=== PATIENT | female | born 1960 | race Caucasian/White ===

== ENCOUNTER 2017-07-11 15:56 | Observation (INO) | payer MEDICAID, SELFPAY ==
[2017-07-11] VITALS (9 sets, daily range): BP systolic 125–156; BP diastolic 74–92; PULSE 57–89; RESP 18–22; TEMP 36.7–37.4; O2SAT 92–96; BMI 82.8; BMI 37.5
--- NOTE | 2017-07-11 16:13 | XR_ITS ---
XR chest 2V COMPARISON: None HISTORY: Shortness of breath TECHNIQUE: PA and lateral chest FINDINGS: Lung english are well expanded and appear clear of infiltrate. The cardiac silhouette and vascularity are normal and is no pleural fluid. There are mild multilevel degenerative changes of the thoracic spine. IMPRESSION: Nonacute chest findings
[2017-07-11 16:22] LABS: Adenovirus,PCR Not Detected (NotDetected); Bordetella Pertussis Not Detected (NotDetected); Chlamydophila Pneumoniae, PCR Not Detected (NotDetected); Coronavirus 229E Not Detected (NotDetected); Coronavirus NL63 Not Detected (NotDetected); Coronavirus OC43 Not Detected (NotDetected); Coronovirus HKU1,PCR Not Detected (NotDetected); Human Metapneumovirus Not Detected (NotDetected); Influenza A, PCR Not Detected (NotDetected); Influenza AH1, 2009 Not Detected (NotDetected); Influenza AH1, PCR Not Detected (NotDetected); Influenza AH3,PCR Not Detected (NotDetected); Influenza B, PCR Not Detected (NotDetected); Mycoplasma Pneumoniae, PCR Not Detected (NotDected); Parainfluenza 1, PCR Not Detected (NotDetected); Parainfluenza 2, PCR Not Detected (NotDetected); Parainfluenza 3, PCR Not Detected (NotDetected); Parainfluenza 4, PCR Not Detected (NotDetected); Respiratory Syncytial Virus Not Detected (NotDetected)
--- NOTE | 2017-07-11 16:23 | HMH.EDSOB ---
ED Disposition Clinical Impression: Community acquired pneumonia Qualifiers: Laterality: right Lung location: middle lobe of lung Qualified Code(s): J18.1 - Lobar pneumonia, unspecified organism Disposition: Admitted as Observation Condition on Discharge: [facility] - Critical Care Critical Care Time: No Attestation: On , the high probability of a clinically significant, sudden or life threatening deterioration of the following system(s) required my full and direct attention, intervention and personal management. The time I documented below is in addition to time spent performing reported procedures but includes the following listed in this critical care notation. Medical Decision Making Vital Signs: 07/11/17 16:12 07/11/17 16:23 Temperature 99.4 F Temperature Source Oral Pulse Rate 88 Pulse Rate [Right Brachial] 57 L Respiratory Rate 18 Blood Pressure [Right Arm] 156/90 Blood Pressure Mean [Right Arm] 112 Blood Pressure Source [Right Arm] Automatic Cuff Blood Pressure Position [Right Arm] Sitting 02 Sat by Pulse Oximetry 92 L Oxygen Delivery Method Room Air - Lab Data Lab results reviewed: Yes: I reviewed the patient's lab results. Lab Results 07/11/17 16:15: Chlamy pneumoniae PCR Not detected, Adenovirus (PCR) Not detected, B.parapertussis DNA PCR Not detected, Coronavirus OC43 (PCR) Not detected, Coronavirus HKU1 (PCR) Not detected, Coronavirus 229E (PCR) Not detected, Coronavirus NL63 (PCR) Not detected, Human Metapneumovir PCR Not detected, Influenza A (H1) PCR Not detected, Influ A (H1N1/09) PCR Not detected, Influenza A (H3) PCR Not detected, Influenza Type A (PCR) Not detected, Influenza Type B (PCR) Not detected, M. pneumoniae (PCR) Not detected, Parainfluenza 1 (PCR) Not detected, Parainfluenza 2 (PCR) Not detected, Parainfluenza 3 (PCR) Not detected, Parainfluenza 4 (PCR) Not detected, RSV (PCR) Not detected, Entero/Rhino (PCR) Detected A 07/11/17 16:30: Sodium 143, Potassium 3.9, Chloride 104, Carbon Dioxide 27, Anion Gap 15.9 H, BUN 24 H, Creatinine 0.95, Estimated Creat Clear 114, Estimated GFR 61, Est GFR ( Amer) 74, Glucose 215 H, Calcium 9.4, Total Bilirubin 0.4, AST 17, ALT 29, Alkaline Phosphatase 103, Total Protein 7.9, Albumin 3.8, Globulin 4.1 H, Albumin/Globulin Ratio 0.9 L 07/11/17 16:30: Lactic Acid 1.8 07/11/17 17:05: WBC 14.6 H, RBC 4.85, Hgb 14.8, Hct 46.1, MCV 95.2, MCH 30.5, MCHC 32.0, RDW 12.9, Plt Count 243, MPV 8.4, Neut % (Auto) 65.1, Lymph % (Auto) 29.0, Gates % (Auto) 3.4, Eos % (Auto) 2.2, Baso % (Auto) 0.3, Neut # (Auto) 9.5 H, Lymph # (Auto) 4.2, Gates # (Auto) 0.5, Eos # (Auto) 0.3, Baso # (Auto) 0.1 Result diagrams: 07/11/17 17:05 07/11/17 16:30 Orders (Tests/Meds): ED MEDICATIONS Generic Name Dose Route Start Last Admin Trade Name Freq PRN Reason Stop Dose Admin Piperacillin Sod/Tazobactam 50 mls @ 100 mls/hr 07/11/17 17:00 07/11/17 17:21 Sod 3.375 gm/ Sodium Chloride IV 07/25/17 16:59 100 mls/hr Q8H BRIDGETTE Administration Protocol Discontinued Medications Generic Name Dose Route Start Last Admin Trade Name Freq PRN Reason Stop Dose Admin Methylprednisolone Sodium Succinate 125 mg 07/11/17 16:30 07/11/17 16:56 Solu-Medrol 125mg/2ml Vial IV 07/11/17 16:31 125 mg ONCE ONE Administration ORDERS Category Date Time Status Chest XR 2 view (NOT portable) [XR chest 2V] Stat Exams 07/11/17 16:13 Taken Blood Culture Stat Micro 07/11/17 16:30 Ordered - Radiology Data #1 Image(s): Chest Image Reviewed: Yes I reviewed the patient's radiology image Preliminary Findings: Abnormal somewhat hazy RML and LLL - Physician Consults Physician Consulted: Dr. Elam salon stylist for Dr. Ortiz who is on service call Reason -: Admission, Pt condition - Garret Inquiry Pt receiving controlled substance: No Resp/SOB HPI - General Chief Complaint: Shortness of Breath/Dyspnea Stated Complaint: soa Time Seen by Provid
--- NOTE | 2017-07-11 16:27 | ED_ITS ---
ED Disposition Clinical Impression: Community acquired pneumonia Qualifiers: Laterality: right Lung location: middle lobe of lung Qualified Code(s): J18.1 - Lobar pneumonia, unspecified organism Disposition: Admitted as Observation Condition on Discharge: [facility] - Critical Care Critical Care Time: No Attestation: On , the high probability of a clinically significant, sudden or life threatening deterioration of the following system(s) required my full and direct attention, intervention and personal management. The time I documented below is in addition to time spent performing reported procedures but includes the following listed in this critical care notation. Medical Decision Making Vital Signs: 07/11/17 16:12 07/11/17 16:23 Temperature 99.4 F Temperature Source Oral Pulse Rate 88 Pulse Rate [Right Brachial] 57 L Respiratory Rate 18 Blood Pressure [Right Arm] 156/90 Blood Pressure Mean [Right Arm] 112 Blood Pressure Source [Right Arm] Automatic Cuff Blood Pressure Position [Right Arm] Sitting 02 Sat by Pulse Oximetry 92 L Oxygen Delivery Method Room Air - Lab Data Lab results reviewed: Yes: I reviewed the patient's lab results. Lab Results 07/11/17 16:15: Chlamy pneumoniae PCR Not detected, Adenovirus (PCR) Not detected, B.parapertussis DNA PCR Not detected, Coronavirus OC43 (PCR) Not detected, Coronavirus HKU1 (PCR) Not detected, Coronavirus 229E (PCR) Not detected, Coronavirus NL63 (PCR) Not detected, Human Metapneumovir PCR Not detected, Influenza A (H1) PCR Not detected, Influ A (H1N1/09) PCR Not detected , Influenza A (H3) PCR Not detected, Influenza Type A (PCR) Not detected, Influenza Type B (PCR) Not detected, M. pneumoniae (PCR) Not detected, Parainfluenza 1 (PCR) Not detected, Parainfluenza 2 (PCR) Not detected, Parainfluenza 3 (PCR) Not detected, Parainfluenza 4 (PCR) Not detected, RSV (PCR ) Not detected, Entero/Rhino (PCR) Detected A 07/11/17 16:30: Sodium 143, Potassium 3.9, Chloride 104, Carbon Dioxide 27, Anion Gap 15.9 H, BUN 24 H, Creatinine 0.95, Estimated Creat Clear 114, Estimated GFR 61, Est GFR ( Amer) 74, Glucose 215 H, Calcium 9.4, Total Bilirubin 0.4, AST 17, ALT 29, Alkaline Phosphatase 103, Total Protein 7.9, Albumin 3.8, Globulin 4.1 H, Albumin/Globulin Ratio 0.9 L 07/11/17 16:30: Lactic Acid 1.8 07/11/17 17:05: WBC 14.6 H, RBC 4.85, Hgb 14.8, Hct 46.1, MCV 95.2, MCH 30.5, MCHC 32.0, RDW 12.9, Plt Count 243, MPV 8.4, Neut % (Auto) 65.1, Lymph % (Auto) 29.0, Kay % (Auto) 3.4, Eos % (Auto) 2.2, Baso % (Auto) 0.3, Neut # (Auto) 9.5 H, Lymph # (Auto) 4.2, Kay # (Auto) 0.5, Eos # (Auto) 0.3, Baso # (Auto) 0.1 Result diagrams: 07/11/17 17:05 07/11/17 16:30 Orders (Tests/Meds): ED MEDICATIONS Generic Name Dose Route Start Last Admin Trade Name Freq PRN Reason Stop Dose Admin Piperacillin Sod/Tazobactam 50 mls @ 100 mls/hr 07/11/17 17:00 07/11/17 17:21 Sod 3.375 gm/ Sodium Chloride IV 07/25/17 16:59 100 mls/hr Q8H BRIDGETTE Administration Protocol Discontinued Medications Generic Name Dose Route Start Last Admin Trade Name Freq PRN Reason Stop Dose Admin Methylprednisolone Sodium Succinate 125 mg 07/11/17 16:30 07/11/17 16:56 Solu-Medrol 125mg/2ml Vial IV 07/11/17 16:31 125 mg ONCE ONE Administration ORDERS Category Date Time Status Chest XR 2 view (NOT
[2017-07-11 17:00] LABS: Alanine Aminotransferase 29 U/L (12-78); Albumin Level 3.8 gm/dL (3.4-5.0); Albumin/Globulin Ratio 0.9 (1.1-1.8); Alkaline Phosphatase 103 U/L (46-116); Anion Gap 15.9 mEq/L (5-15); Aspartate Amino Transferase 17 U/L (15-37); Bilirubin,Total 0.4 mg/dL (0.2-1.0); Blood Urea Nitrogen 24 mg/dL (7-18); Calcium 9.4 mg/dL (8.5-10.1); Carbon Dioxide 27 mmol/L (21.0-32.0); Chloride 104 mmol/L (98-107); Creatinine Clearance Estimated 114 mL/min (0-300); Creatinine,Serum 0.95 mg/dL (0.55-1.02); Estimated Glomerular Filt Rate 61 ml/min (>60); GFR (African American) 74 ML/MIN (>60); Globulin 4.1 gm/dl (1.3-3.2); Glucose 215 mg/dL (74-106); Potassium 3.9 mmoL/L (3.5-5.1); Sodium 143 mmol/L (136-145); Total Protein,Serum 7.9 gm/dL (6.4-8.2)
[2017-07-11 17:04] LABS: Lactic Acid 1.8 mmol/L (0.4-2.0)
[2017-07-11 17:12] LABS: Basophils # 0.1 K/mm3 (0-0.2); Basophils % 0.3 % (0.1-2.0); Eosinophils # 0.3 K/mm3 (0.0-0.4); Eosinophils % 2.2 % (0.1-12.0); Hematocrit 46.1 % (37.0-47.0); Hemoglobin 14.8 g/dL (12.2-16.2); Lymphocytes # 4.2 K/mm3 (0.7-4.5); Mean Corpuscular Hemoglobin 30.5 pg (27.0-31.2); Mean Corpuscular Volume 95.2 fl (81-99); Mean Platelet Volume 8.4 fl (7.4-10.4); Monocytes # 0.5 K/mm3 (0.1-1.0); Monocytes % 3.4 % (1.7-9.3); Neutrophils # 9.5 K/mm3 (1.8-7.8); Neutrophils % 65.1 % (37.0-80.0); Platelet Count 243 K/mm3 (142-424); Red Blood Count 4.85 M/mm3 (4.20-5.40); Red Cell Distribution Width 12.9 % (11.5-17.5); White Blood Count 14.6 K/mm3 (4.8-10.8)
[2017-07-11 17:34] LABS: Rhinovirus/Enterovirus Detected (NotDetected)
--- NOTE | 2017-07-11 19:31 | HMH.HP ---
*Admission Date: 07/11/17 *Chief complaint: SOA/cough *History of present illness: 56-year-old white female with known COPD, treated at home with as needed inhalers, who was treated by her primary care provider with levofloxacin last week because of a COPD exacerbation and bronchitis. [place] better, but over the past couple of days has begun to feel increasingly short of air, some cough, tight wheezing, and came to the emergency department. She was found to have normal vital signs but slightly tachycardic, tight wheezing. Admitted to hospital for enhanced pulmonary toilet and expanded antibiotic therapy. [facility] History I have reviewed the patient's past medical history: Yes Medical History: Reports:: Chronic Obstructive Pulmonary Disease (COPD), Diabetes Mellitus Type 2, Hyperlipidemia, Hypertension Denies:: Cancer, Diabetes Mellitus Type 1, Home Oxygen, Internal Pacemaker, MRSA Other Medical History: Reports: Arthritis Other Surgeries: No: Pacemaker Amputation: No Fractures: No - *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 Educational Level: Completed High School Smoking Status: Current every day smoker Tobacco Type: cigarettes # Packs/Day (cigarettes): 1 Alcohol Intake: never Occupational Status: unemployed Housing: house Household Members: spouse - Psychiatric History Expresses thoughts of harming self/others: None Suicide Plan Description: No Plan *Family Hx:: Diabetes, Heart Attack, Hyperlipidemia, Hypertension Review of Systems - Review of Systems Review of systems:: unable to obtain, other, pertinent systems reviewed and negative unless documented below - *Respiratory Reports chest congestion, Reports shortness of breath with activity, Reports excessive phlegm production Meds Home Medications Medication Instructions Recorded Confirmed Type Amlodipine Besylate [Norvasc 5mg 5 mg PO DAILY 07/11/17 07/11/17 History tablet] Aspirin [Aspirin 81mg chewable 81 mg PO DAILY 07/11/17 07/11/17 History tab] Atorvastatin Calcium [Atorvastatin 40 mg PO DAILY 07/11/17 07/11/17 History 40mg Tab] Calcium Carbonate [Calcium] 600 mg PO DAILY 07/11/17 07/11/17 History Canagliflozin [Invokana] 300 mg PO DAILY 07/11/17 07/11/17 History Carvedilol [Carvedilol 6.25mg Tab] 6.25 mg PO DAILY 07/11/17 07/11/17 History Cyanocobalamin (Vitamin B-12) 1,000 mcg PO DAILY 07/11/17 07/11/17 History [B-12] Gabapentin [Gabapentin 100mg Cap] 100 mg PO BID 07/11/17 07/11/17 History Glucosa Araya 2Kcl/Chondroitin Araya 1 each PO DAILY 07/11/17 07/11/17 History [Glucosamine & Chondroitin Cap] Metformin HCl [Metformin 500mg 500 mg PO BID 07/11/17 07/11/17 History Tablet] Omeprazole [Omeprazole 20mg 20 mg PO DAILY 07/11/17 07/11/17 History Capsule] Triamterene/Hydrochlorothiazid 1 each PO DAILY 07/11/17 07/11/17 History [Dyazide 37.5-25 Capsule] buPROPion HCl [Bupropion Xl] 300 mg PO DAILY 07/11/17 07/11/17 History Allergies Allergy/AdvReac Type Severity Reaction Status Date / Time cephalexin [From KEFLEX] Allergy Unknown Verified 07/11/17 16:56 lisinopril [LISINOPRIL] Allergy Unknown Verified 07/11/17 16:56 meloxicam [MELOXICAM] Allergy Unknown Verified 07/11/17 16:56 Exam Vital signs and Labs for Last 24 Hours: Temp Pulse Resp BP Pulse Ox 98.1 F 76 22 125/76 95 07/11/17 18:51 07/11/17 18:51 07/11/17 18:51 07/11/17 18:51 07/11/17 18:33 I & O for Last 24 hours: Intake & Output 07/09/17 07/10/17 07/11/17 07/12/17 11:59 11:59 11:59 11:59 Weight 240 lb Narrative: Patient is awake, pleasant. Anterior lung english have expiratory wheezing, fairly good air movement, some rhonchi in the right base. Abdomen is soft and nontender. Heart rate regular. No extremity edema or clubbing, neurologic exam intact. Assessment and Plan (1) COPD with acute exacerbation Current visit: Yes Status: Acute Category: Medical Code(s): J44.1 - Chronic obstructive pulmonary disease with (acute) exacerbation (2
--- NOTE | 2017-07-11 19:34 | P.HP_ITS ---
*Admission Date: 07/11/17 *Chief complaint: SOA/cough *History of present illness: 56-year-old white female with known COPD, treated at home with as needed inhalers, who was treated by her primary care provider with levofloxacin last week because of a COPD exacerbation and bronchitis. [place] better, but over the past couple of days has begun to feel increasingly short of air, some cough, tight wheezing, and came to the emergency department. She was found to have normal vital signs but slightly tachycardic, tight wheezing. Admitted to hospital for enhanced pulmonary toilet and expanded antibiotic therapy. [facility] History I have reviewed the patient's past medical history: Yes Medical History: Reports:: Chronic Obstructive Pulmonary Disease (COPD), Diabetes Mellitus Type 2, Hyperlipidemia, Hypertension Denies:: Cancer, Diabetes Mellitus Type 1, Home Oxygen, Internal Pacemaker, MRSA Other Medical History: Reports: Arthritis Other Surgeries: No: Pacemaker Amputation: No Fractures: No - *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 Educational Level: Completed High School Smoking Status: Current every day smoker Tobacco Type: cigarettes # Packs/Day (cigarettes): 1 Alcohol Intake: never Occupational Status: unemployed Housing: house Household Members: spouse - Psychiatric History Expresses thoughts of harming self/others: None Suicide Plan Description: No Plan *Family Hx:: Diabetes, Heart Attack, Hyperlipidemia, Hypertension Review of Systems - Review of Systems Review of systems:: unable to obtain, other, pertinent systems reviewed and negative unless documented below - *Respiratory Reports chest congestion, Reports shortness of breath with activity, Reports excessive phlegm production Meds Home Medications Medication Instructions Recorded Confirmed Type Amlodipine Besylate [Norvasc 5mg 5 mg PO DAILY 07/11/17 07/11/17 History tablet] Aspirin [Aspirin 81mg chewable 81 mg PO DAILY 07/11/17 07/11/17 History tab] Atorvastatin Calcium [Atorvastatin 40 mg PO DAILY 07/11/17 07/11/17 History 40mg Tab] Calcium Carbonate [Calcium] 600 mg PO DAILY 07/11/17 07/11/17 History Canagliflozin [Invokana] 300 mg PO DAILY 07/11/17 07/11/17 History Carvedilol [Carvedilol 6.25mg Tab] 6.25 mg PO DAILY 07/11/17 07/11/17 History Cyanocobalamin (Vitamin B-12) 1,000 mcg PO DAILY 07/11/17 07/11/17 History [B-12] Gabapentin [Gabapentin 100mg Cap] 100 mg PO BID 07/11/17 07/11/17 History Glucosa Araya 2Kcl/Chondroitin Araya 1 each PO DAILY 07/11/17 07/11/17 History [Glucosamine & Chondroitin Cap] Metformin HCl [Metformin 500mg 500 mg PO BID 07/11/17 07/11/17 History Tablet] Omeprazole [Omeprazole 20mg 20 mg PO DAILY 07/11/17 07/11/17 History Capsule] Triamterene/Hydrochlorothiazid 1 each PO DAILY 07/11/17 07/11/17 History [Dyazide 37.5-25 Capsule] buPROPion HCl [Bupropion Xl] 300 mg PO DAILY 07/11/17 07/11/17 History Allergies Allergy/AdvReac Type Severity Reaction Status Date / Time cephalexin [From KEFLEX] Allergy Unknown Verified 07/11/17 16:56 lisinopril [LISINOPRIL] Allergy Unknown Verified 07/11/17 16:56 meloxicam [MELOXICAM] Allergy Unknown Verified 07/11/17 16:56 Exam Vital signs and Labs for Last 24 Hours: Temp Pulse Resp BP Pulse Ox 98.1 F 76 22 125/76 95 07/11/17 18:51 07/11/17 18:51 07/11/17 18:51 07/11/17 18:51 07/11/17 18:33
--- NOTE | 2017-07-11 23:37 | PC.NURSE ---
Dr. Elam notified of pt cough, returned page Guaifenesin DM 5 ml PO Q4H prn cough ordered, pt states some relief from this medication.
[2017-07-12] VITALS (13 sets, daily range): BP systolic 132–155; BP diastolic 71–85; PULSE 69–91; RESP 20–24; TEMP 36.8–36.9; O2SAT 93–94
--- NOTE | 2017-07-12 03:46 | PC.NURSE ---
no changes noted from previous assessment, pt has not rested well this shift, c/o pain in upper abdomen associated with cough, PRN cough medication given producing some relief of symptoms, SOA noted at rest, expiratory wheezes noted on auscultation, pt is maintaining O2 sats at or above 90 on 2L NC, pt ambulating to and from bathroom well, bowel sounds are active, vss, no acute distress noted at this time, call light in reach,will continue to monitor.
[2017-07-12 06:56] LABS: Basophils % 0.1 % (0.1-2.0); Eosinophils % 0.1 % (0.1-12.0); Hematocrit 45.5 % (37.0-47.0); Hemoglobin 14.4 g/dL (12.2-16.2); Lymphocytes % 12.9 K/mm3 (10-50); Mean Corpuscular HGB Conc 31.5 g/dL (31.8-35.4); Mean Corpuscular Hemoglobin 29.6 pg (27.0-31.2); Mean Platelet Volume 8.5 fl (7.4-10.4); Monocytes # 0.3 K/mm3 (0.1-1.0); Monocytes % 2.1 % (1.7-9.3); Neutrophils # 12.9 K/mm3 (1.8-7.8); Neutrophils % 84.8 % (37.0-80.0); Platelet Count 220 K/mm3 (142-424); Red Blood Count 4.85 M/mm3 (4.20-5.40); White Blood Count 15.2 K/mm3 (4.8-10.8)
[2017-07-12 07:00] LABS: MANUAL DIFFERENTIAL MANUAL DIFFERENTIAL (MANUAL DIFF)
[2017-07-12 07:06] LABS: Alanine Aminotransferase 28 U/L (12-78); Albumin Level 3.7 gm/dL (3.4-5.0); Albumin/Globulin Ratio 0.9 (1.1-1.8); Alkaline Phosphatase 99 U/L (46-116); Anion Gap 12.8 mEq/L (5-15); Aspartate Amino Transferase 11 U/L (15-37); Bilirubin,Total 0.5 mg/dL (0.2-1.0); Blood Urea Nitrogen 23 mg/dL (7-18); Calcium 9.3 mg/dL (8.5-10.1); Carbon Dioxide 29 mmol/L (21.0-32.0); Chloride 105 mmol/L (98-107); Creatinine Clearance Estimated 156 mL/min (0-300); Creatinine,Serum 0.69 mg/dL (0.55-1.02); Estimated Glomerular Filt Rate 88 ml/min (>60); GFR (African American) 106 ML/MIN (>60); Potassium 3.8 mmoL/L (3.5-5.1); Sodium 143 mmol/L (136-145); Total Protein,Serum 7.7 gm/dL (6.4-8.2)
[2017-07-12 07:10] LABS: Glucose 168 mg/dL (74-106)
[2017-07-12 07:17] LABS: Lymphocytes % 14 % (10-50); Monocytes % 4 % (2-9); Neutrophils % 78 % (42-76); Platelet Estimate Normal; RBC Morphology Normal; Total Cells Counted 100
--- NOTE | 2017-07-12 08:53 | P.PN_ITS ---
Internal Medicine - PN: Subj *Date: 07/12/17 *Time: 08:52 Interval history: Patient feels better, less wheezing. Continues to feel short of air when getting around in the room. Exam Vital signs and Labs for Last 24 Hours: Temp Pulse Resp BP Pulse Ox 98.3 F 81 20 141/85 94 L 07/12/17 07:46 07/12/17 07:46 07/12/17 07:46 07/12/17 07:46 07/12/17 08:36 Laboratory Results - last 24 hr 07/12/17 06:20: Sodium 143, Potassium 3.8, Chloride 105, Carbon Dioxide 29, Anion Gap 12.8, BUN 23 H, Creatinine 0.69 D, Estimated Creat Clear 156, Estimated GFR 88, Est GFR ( Amer) 106 D, Glucose 168 H D, Calcium 9.3, Total Bilirubin 0.5, AST 11 L D, ALT 28, Alkaline Phosphatase 99, Total Protein 7.7, Albumin 3.7, Globulin 4.0 H, Albumin/Globulin Ratio 0.9 L 07/12/17 06:20: WBC 15.2 H, RBC 4.85, Hgb 14.4, Hct 45.5, MCV 94.0, MCH 29.6, MCHC 31.5 L, RDW 13.0, Plt Count 220, MPV 8.5, Neut % (Auto) 84.8 H, Lymph % ( Auto) 12.9, Sanders % (Auto) 2.1, Eos % (Auto) 0.1, Baso % (Auto) 0.1, Neut # (Auto ) 12.9 H, Lymph # (Auto) 2.0, Sanders # (Auto) 0.3, Eos # (Auto) 0.0, Baso # (Auto ) 0.0, Total Counted 100, Neutrophils % (Manual) 78 H, Band Neutrophils % 4.0, Lymphocytes % (Manual) 14, Monocytes % (Manual) 4, Platelet Estimate Normal, RBC Morphology Normal I & O for Last 24 hours: Intake & Output 07/09/17 07/10/17 07/11/17 07/12/17 11:59 11:59 11:59 11:59 Intake Total 590 / 590 Output Total Balance 589 / 589 Narrative: Alert, pleasant, talkative, lungs have expiratory wheezing and some tight rhonchi, however air movement is better. Heart rate regular, abdomen soft and nontender. Assessment and Plan (1) COPD with acute exacerbation Current visit: Yes Status: Acute Category: Medical Code(s): J44.1 - Chronic obstructive pulmonary disease with (acute) exacerbation (2) Community acquired pneumonia Current visit: Yes Status: Acute Qualifiers: Laterality: right Lung location: middle lobe of lung Qualified Code(s): J18.1 - Lobar pneumonia, unspecified organism Category: Medical Code(s): J18.9 - Pneumonia, unspecified organism - Assessment and plan all Dx Assessment and Plan for all problems:: Overall improving. Continue IV steroids, pulmonary toilet and oxygen support.
--- NOTE | 2017-07-12 11:31 | P.CONPHA_ITS ---
[facility] Pharmacy VTE Monitoring - Patient Demographics Admission date: 07/12/17 Report Date: 07/12/17 Time: 11:30 Allergies/Adverse Reactions: Patient Allergies cephalexin [From KEFLEX] Allergy (Unknown, Verified 07/11/17 16:56) lisinopril [LISINOPRIL] Allergy (Unknown, Verified 07/11/17 16:56) meloxicam [MELOXICAM] Allergy (Unknown, Verified 07/11/17 16:56) Height: 1.7 m Weight: 108.862 kg Patient Problems: Current Active Problems Community acquired pneumonia (Acute) COPD with acute exacerbation (Acute) - VTE Risk Labs: VTE Related Lab Results Hgb 14.4 g/dL (12.2-16.2) 07/12/17 06:20 Hct 45.5 % (37.0-47.0) 07/12/17 06:20 Plt Count 220 K/mm3 (142-424) 07/12/17 06:20 BUN 23 mg/dL (7-18) H 07/12/17 06:20 Creatinine 0.69 mg/dL (0.55-1.02) D 07/12/17 06:20 Estimated Creat Clear 156 mL/min (0-300) 07/12/17 06:20 VTE Score: 3 VTE Risk Level: Low Risk - VTE Diagnosis Confirmed Comment: NISREEN HICKS ORDERED
--- NOTE | 2017-07-12 13:30 | PC.NURSE ---
PT IS RESTING IN BED WITH FAMILY IN THE ROOM, NO COMPLAINTS OF DISCOMFORT. RECEIVING COUGH MEDICINE NEEDED. LUNG SOUNDS HAVE SCATTERED WHEEZES AND RHONCHI, BOWEL SOUNDS NORMAL, PT HAS BEEN AMBULATING TO THE BATHROOM AND AROUND THE ROOM. WILL CONTINUE TO MONITOR.
--- NOTE | 2017-07-13 03:02 | PC.NURSE ---
no changes noted from previous assessment, pt has rested better tonight than the previous night, pt has been ambulating in the hallway and tolerating well, Room air O2 sat obtained to be 94, pt states she is still SOA when talking or with activity and feels better with oxygen on, pt maintaining O2 sats at or above 90 on 2L NC, pt c/o pain associated with cough x1 this shift which was relieved with tylenol and cough medication, expiratory wheezing noted on auscultation, bowel sounds active, no acute distress noted at this time, call light in reach, will continue to monitor.
[2017-07-13 03:12] VITALS: O2SAT 88
[2017-07-13 03:55] VITALS: BP 134/75; PULSE 67; RESP 22; TEMP 36.7; O2SAT 92
[2017-07-13 06:01] VITALS: PULSE 80; PULSE 81; O2SAT 91
[2017-07-13 07:41] VITALS: BP 138/74; PULSE 67; RESP 20; TEMP 37.2; O2SAT 92
--- NOTE | 2017-07-13 08:16 | HMH.DCSUM ---
General - General Admission date: 07/11/17 Discharge date: 07/13/17 HPI HPI: 56-year-old white female with known COPD, treated at home with as needed inhalers, who was treated by her primary care provider with levofloxacin last week because of a COPD exacerbation and bronchitis. [place] better, but over the past couple of days has begun to feel increasingly short of air, some cough, tight wheezing, and came to the emergency department. She was found to have normal vital signs but slightly tachycardic, tight wheezing. Admitted to hospital for enhanced pulmonary toilet and expanded antibiotic therapy. Objective Vital signs: Temp Pulse Resp BP Pulse Ox 99.0 F 67 20 138/74 92 L 07/13/17 07:41 07/13/17 07:41 07/13/17 07:41 07/13/17 07:41 07/13/17 07:41 Narrative: This morning patient is much improved, no oxygen requirement. Sitting up in a chair, breathing easily. Minimal rhonchi in both lower lung english, but no wheezing. Good air movement. Abdomen soft, heart rate regular. Hospital Course Hospital Course: Patient was admitted as noted on 07/11/17. She was treated with IV antibiotics, IV steroids and did well with this. Nebs were added. She improved in a stepwise fashion and this morning is back to her baseline, please see my discharge exam. She will be discharged home on antibiotics, steroids and follow-up with her regular physician. DS: Diagnosis - Discharge Diagnosis (1) COPD with acute exacerbation Status: Acute (2) Community acquired pneumonia Status: Acute Discharge Plan - Patient Discharge Instructions ACTIVITY: Continue current activity DIET: continue same diet - Follow up Plan Follow up with: Paola Hyde [Referring] - 07/17/17 Disposition: Home, Self-Shelter Medications: Home Medications Medication Instructions Recorded Confirmed Type Amlodipine Besylate [Norvasc 5mg 5 mg PO DAILY 07/11/17 07/11/17 History tablet] Aspirin [Aspirin 81mg chewable 81 mg PO DAILY 07/11/17 07/11/17 History tab] Atorvastatin Calcium [Atorvastatin 40 mg PO DAILY 07/11/17 07/11/17 History 40mg Tab] Calcium Carbonate [Calcium] 600 mg PO DAILY 07/11/17 07/11/17 History Canagliflozin [Invokana] 300 mg PO DAILY 07/11/17 07/11/17 History Carvedilol [Carvedilol 6.25mg Tab] 6.25 mg PO DAILY 07/11/17 07/11/17 History Cyanocobalamin (Vitamin B-12) 1,000 mcg PO DAILY 07/11/17 07/11/17 History [B-12] Gabapentin [Gabapentin 100mg Cap] 100 mg PO BID 07/11/17 07/11/17 History Glucosa Araya 2Kcl/Chondroitin Araya 1 each PO DAILY 07/11/17 07/11/17 History [Glucosamine & Chondroitin Cap] Metformin HCl [Metformin 500mg 500 mg PO BID 07/11/17 07/11/17 History Tablet] Omeprazole [Omeprazole 20mg 20 mg PO DAILY 07/11/17 07/11/17 History Capsule] Triamterene/Hydrochlorothiazid 1 each PO DAILY 07/11/17 07/11/17 History [Dyazide 37.5-25 Capsule] buPROPion HCl [Bupropion Xl] 300 mg PO DAILY 07/11/17 07/11/17 History Prescriptions/Medication Reconciliation: New predniSONE [Deltasone 20mg tablet] 20 mg PO BID 5 Days #10 tab Amoxicillin/Potassium Clav [Augmentin 875-125 Tablet] 1 tab PO Q12H 10 Days #20 tab Continue Carvedilol [Carvedilol 6.25mg Tab] 6.25 mg PO DAILY Aspirin [Aspirin 81mg chewable tab] 81 mg PO DAILY Amlodipine Besylate [Norvasc 5mg tablet] 5 mg PO DAILY Triamterene/Hydrochlorothiazid [Dyazide 37.5-25 Capsule] 1 each PO DAILY Omeprazole [Omeprazole 20mg Capsule] 20 mg PO DAILY Glucosa Araya 2Kcl/Chondroitin Araya [Glucosamine & Chondroitin Cap] 1 each PO DAILY Gabapentin [Gabapentin 100mg Cap] 100 mg PO BID Cyanocobalamin (Vitamin B-12) [B-12] 1,000 mcg PO DAILY Canagliflozin [Invokana] 300 mg PO DAILY Calcium Carbonate [Calcium] 600 mg PO DAILY buPROPion HCl [Bupropion Xl] 300 mg PO DAILY Atorvastatin Calcium [Atorvastatin 40mg Tab] 40 mg PO DAILY Metformin HCl [Metformin 500mg Tablet] 500 mg PO BID
--- NOTE | 2017-07-13 08:19 | P.DS_ITS ---
General - General Admission date: 07/11/17 Discharge date: 07/13/17 HPI HPI: 56-year-old white female with known COPD, treated at home with as needed inhalers, who was treated by her primary care provider with levofloxacin last week because of a COPD exacerbation and bronchitis. [place] better, but over the past couple of days has begun to feel increasingly short of air, some cough, tight wheezing, and came to the emergency department. She was found to have normal vital signs but slightly tachycardic, tight wheezing. Admitted to hospital for enhanced pulmonary toilet and expanded antibiotic therapy. Objective Vital signs: Temp Pulse Resp BP Pulse Ox 99.0 F 67 20 138/74 92 L 07/13/17 07:41 07/13/17 07:41 07/13/17 07:41 07/13/17 07:41 07/13/17 07:41 Narrative: This morning patient is much improved, no oxygen requirement. Sitting up in a chair, breathing easily. Minimal rhonchi in both lower lung english, but no wheezing. Good air movement. Abdomen soft, heart rate regular. Hospital Course Hospital Course: Patient was admitted as noted on 07/11/17. She was treated with IV antibiotics, IV steroids and did well with this. Nebs were added. She improved in a stepwise fashion and this morning is back to her baseline, please see my discharge exam. She will be discharged home on antibiotics, steroids and follow -up with her regular physician. DS: Diagnosis - Discharge Diagnosis (1) COPD with acute exacerbation Status: Acute (2) Community acquired pneumonia Status: Acute Discharge Plan - Patient Discharge Instructions ACTIVITY: Continue current activity DIET: continue same diet - Follow up Plan Follow up with: Paola Hyde [Referring] - 07/17/17 Disposition: Home, Self-Group Home Medications: Home Medications Medication Instructions Recorded Confirmed Type Amlodipine Besylate [Norvasc 5mg 5 mg PO DAILY 07/11/17 07/11/17 History tablet] Aspirin [Aspirin 81mg chewable 81 mg PO DAILY 07/11/17 07/11/17 History tab] Atorvastatin Calcium [Atorvastatin 40 mg PO DAILY 07/11/17 07/11/17 History 40mg Tab] Calcium Carbonate [Calcium] 600 mg PO DAILY 07/11/17 07/11/17 History Canagliflozin [Invokana] 300 mg PO DAILY 07/11/17 07/11/17 History Carvedilol [Carvedilol 6.25mg Tab] 6.25 mg PO DAILY 07/11/17 07/11/17 History Cyanocobalamin (Vitamin B-12) 1,000 mcg PO DAILY 07/11/17 07/11/17 History [B-12] Gabapentin [Gabapentin 100mg Cap] 100 mg PO BID 07/11/17 07/11/17 History Glucosa Araya 2Kcl/Chondroitin Araya 1 each PO DAILY 07/11/17 07/11/17 History [Glucosamine & Chondroitin Cap] Metformin HCl [Metformin 500mg 500 mg PO BID 07/11/17 07/11/17 History Tablet] Omeprazole [Omeprazole 20mg 20 mg PO DAILY 07/11/17 07/11/17 History Capsule] Triamterene/Hydrochlorothiazid 1 each PO DAILY 07/11/17 07/11/17 History [Dyazide 37.5-25 Capsule] buPROPion HCl [Bupropion Xl] 300 mg PO DAILY 07/11/17 07/11/17 History Prescriptions/Medication Reconciliation: New predniSONE [Deltasone 20mg tablet] 20 mg PO BID 5 Days #10 tab Amoxicillin/Potassium Clav [Augmentin 875-125 Tablet] 1 tab PO Q12H 10 Days # 20 tab Continue Carvedilol [Carvedilol 6.25mg Tab] 6.25 mg PO DAILY Aspirin [Aspirin 81mg chewable tab] 81 mg PO DAILY Amlodipine Besylate [Norvasc 5mg tablet] 5 mg PO DAILY Triamter
[2017-07-13 09:05] VITALS: PULSE 67; RESP 20; O2SAT 92
[2017-07-16 15:06] LABS: POC Glucose,Bedside 201 mg/dL (70-110)
[2017-07-16 15:06] LABS: POC Glucose,Bedside 164 mg/dL (70-110)
[2017-07-16 15:06] LABS: POC Glucose,Bedside 170 mg/dL (70-110)
[2017-07-16 15:06] LABS: POC Glucose,Bedside 152 mg/dL (70-110)
[2017-07-16 15:06] LABS: POC Glucose,Bedside 214 mg/dL (70-110)
[2017-07-16 15:06] LABS: POC Glucose,Bedside 338 mg/dL (70-110)
[2017-07-16 15:08] LABS: POC Glucose,Bedside 202 mg/dL (70-110)
== END 2017-07-13 11:04 | disposition home or self-care (01) ==
LOC: ER 16:25 → 2ND 17:50
PROVIDERS: Admitting Provider Internal Medicine Adolescent Medicine; Emergency Provider Emergency Medicine; Visit Provider Internal Medicine Adolescent Medicine
DX: J44.0 Chronic obstructive pulmonary disease with (acute) lower respiratory infection (principal); E11.9 Type 2 diabetes mellitus without complications; I10 Essential (primary) hypertension; Z72.0 Tobacco use; J18.9 Pneumonia, unspecified organism; J44.1 Chronic obstructive pulmonary disease with (acute) exacerbation
CPT/HCPCS: 71046; 80053; 82962; 83605; 85007; 85025; 87040; 87486; 87581; 87633; 87798; 90732; 94640; 94760; 94761; 99281; G0378; J2543

== ENCOUNTER 2019-05-13 19:38 | Emergency (ER) | payer BC, SELFPAY ==
[2019-05-13 19:39] VITALS: BP 92/74; PULSE 93; RESP 20; TEMP 36.7; O2SAT 92; BMI 33.3
--- NOTE | 2019-05-13 20:32 | HMH.EDUTC ---
[facility] [place] Disposition Clinical Impression: COPD with acute exacerbation Disposition: Home, Self-Care Condition on Discharge: Good Instructions: Cough, DI for Cough -- Adult, Guaifenesin, Amoxicillin and Clavulanic Acid, Levofloxacin Additional Instructions: Continue to take Levaquin as prescribed *GO to the pharmacy first thing in the morning and get your prescription and start taking medication as your family doctor has prescribed Return if needed You was given an albuterol inhaler, use this medication as prescribed for Shortness of Breath Straight to ER if any life threatening symptoms Prescriptions: Albuterol Sulfate [Albuterol HFA Inhaler] 1 - 2 puffs IH Q4-6H PRN #1 inh PRN Reason: Shortness Of Breath Or Wheezing Transmission Status: Received by [employer] [facility] [place] Referrals: Paola Hyde [Primary Care Provider] - As needed Time of Disposition: 20:41 Medical Decision Making - Garret Inquiry Pt receiving controlled substance: No Garret was queried for this patient: No Vital Signs: 05/13/19 19:39 Temperature 98.0 F Temperature Source Oral Pulse Rate [Radial] 93 H Respiratory Rate 20 Blood Pressure [Right Arm] 92/74 L Blood Pressure Mean [Right Arm] 80 Blood Pressure Source [Right Arm] Automatic Cuff Blood Pressure Position [Right Arm] Sitting 02 Sat by Pulse Oximetry 92 L Oxygen Delivery Method Room Air Orders (Tests/Meds): ED MEDICATIONS Discontinued Medications Generic Name Dose Route Start Last Admin Trade Name Freq PRN Reason Stop Dose Admin Albuterol/Ipratropium 3 ml 05/13/19 20:32 05/13/19 20:36 Duoneb 3ml Neb IH 05/13/19 20:33 3 ml ONCE ONE Administration - Reevaluation(s) Time: 20:50 Reevaluation #1: No wheezing noted after neb [facility] HPI - General Stated complaint: chest congestion Time Seen by Provider: 05/13/19 20:32 Mode of Arrival: Ambulatory Source of Information: Patient Limitations: No Limitations Description of Symptoms (Recalled from Triage Doc. by RN): CHEST AND HEAD CONGESTION HEENT Symptoms (Recalled from RN notes): Yes Resp Symptoms (Recalled from RN notes): Yes Skin Symptoms (Recalled from RN notes): No MS Symptoms (Recalled from RN notes): No Functional Status (Recalled from RN notes): WNL - History of Present Illness Provider Complaint: Patient state that she was seen by family doctor on Thursday and was given Levaquin State that she has been taking it along with prednisone but still having cough and head congestion States that she called family doctor and they called her in some more medication but she didnt make it to the pharmacy on time to get it and her made her come in here to be checked everyday smoker with history of copd - Related Data Home Medications Medication Instructions Recorded Confirmed Amlodipine Besylate [Norvasc 5mg 5 mg PO DAILY 07/11/17 08/06/18 tablet] Aspirin [Aspirin 81mg chewable 81 mg PO DAILY 07/11/17 08/06/18 tab] Atorvastatin Calcium [Atorvastatin 40 mg PO DAILY 07/11/17 08/06/18 40mg Tab] Calcium Carbonate [Calcium] 600 mg PO DAILY 07/11/17 08/06/18 Cyanocobalamin (Vitamin B-12) 1,000 mcg PO DAILY 07/11/17 08/06/18 [B-12] Gabapentin [Gabapentin 100mg Cap] 100 mg PO BID 07/11/17 08/06/18 Glucosa Araya 2Kcl/Chondroitin Araya 1 each PO DAILY 07/11/17 08/06/18 [Glucosamine & Chondroitin Cap] Metformin HCl [Glucophage 500mg 500 mg PO BID 07/11/17 08/06/18 Tablet] Omeprazole [Omeprazole 20mg 20 mg PO DAILY 07/11/17 08/06/18 Capsule] Triamterene/Hydrochlorothiazid 1 each PO DAILY 07/11/17 08/06/18 [Dyazide 37.5-25 Capsule] carvediloL [Carvedilol 6.25mg Tab] 6.25 mg PO BID 07/11/17 08/06/18 Previous Rx's Medication Instructions Recorded Azithromycin [Z-Tee 250mg Tab*] 250 mg PO UD DOSE PK #6 tab 08/06/18 Benzonatate [Tessalon Perle 100mg 100 mg PO TIDP PRN #30 cap 08/06/18 Cap] Albuterol Sulfate [Albuterol HFA 1 - 2 puffs IH Q4-6H PRN #1 inh
[2019-05-13 20:57] VITALS: BP 92/74; PULSE 93; RESP 20; TEMP 36.7; O2SAT 94
== END 2019-05-13 20:58 | disposition home or self-care (01) ==
PROVIDERS: Emergency Provider Nurse Practitioner; PCP Nurse Practitioner Family
DX: J44.1 Chronic obstructive pulmonary disease with (acute) exacerbation (principal); E11.9 Type 2 diabetes mellitus without complications; Z79.84 Long term (current) use of oral hypoglycemic drugs; Z79.899 Other long term (current) drug therapy; I10 Essential (primary) hypertension; E78.5 Hyperlipidemia, unspecified; F17.210 Nicotine dependence, cigarettes, uncomplicated; Z88.1 Allergy status to other antibiotic agents; Z88.2 Allergy status to sulfonamides
CPT/HCPCS: 99201

== ENCOUNTER → 2021-02-01 16:52 | Outpatient (CLI) | payer BC, SELFPAY | PROVIDERS: PCP Nurse Practitioner Family; Visit Provider Nurse Practitioner | DX: Z20.822 Contact with and (suspected) exposure to COVID-19 (principal) | CPT/HCPCS: C9803; U0003; U0005 ==

== ENCOUNTER → 2021-02-05 10:54 | Outpatient (CLI) | payer BC, SELFPAY | PROVIDERS: PCP Emergency Medicine; Visit Provider Nurse Practitioner | DX: Z20.822 Contact with and (suspected) exposure to COVID-19 (principal) | CPT/HCPCS: C9803; U0003; U0005 ==

== ENCOUNTER 2021-09-19 18:54 | Emergency (ER) | payer BC, SELFPAY ==
[2021-09-19 20:03] VITALS: BP 159/97; PULSE 62; RESP 18; TEMP 37.2; O2SAT 99; BMI 33.6
[2021-09-19 20:08] VITALS: BMI 33.6
--- NOTE | 2021-09-19 20:08 | XR_ITS ---
PROCEDURE INFORMATION: Exam: XR Chest Exam date and time: 09/19/2021 8:33 PM Age: 60 years old Clinical indication: Patient HX: Cough, shortness of breath. ; Additional info: SOA TECHNIQUE: Imaging protocol: XR of the chest. Views: 2 views. COMPARISON: CR CXR2V XR chest 2V 08/06/2018 9:02 PM FINDINGS: Lungs: Faint infiltrate at the right lung base. Pleural spaces: Unremarkable. No pleural effusion. No pneumothorax. Heart/Mediastinum: Unremarkable. No cardiomegaly. Bones/joints: Unremarkable. IMPRESSION: Faint right lung base infiltrate may represent pneumonia.
--- NOTE | 2021-09-19 20:14 | ECG_ITS ---
APPROVED REPORT Exam: Resting ECG HR:92 bpm ECG Measurements Heart Rate 92 AXES [place] 142 P 73 QRSd 102 QRS 47 QT 348 T 71 QTc 398 Conclusion SINUS RHYTHM NORMAL ECG UNCONFIRMED REPORT Electronically signed by : Chalo Elam MD 09/21/2021 09:06:15
[2021-09-19 20:17] LABS: ABG HCO3 26.2 mmhg (22.0-26.0); ABG Oxygen Saturation 95 % (90-100); ABG PCO2 39.6 mmhg (35.0-45.0); ABG PH 7.44 mmol/L (7.35-7.45); ABG PO2 69.7 mmhg (80-100); ABG TCO2 27.4 mmhg (23-27)
[2021-09-19 20:18] LABS: Allen's Test Acceptable; Oxygen 21 %; Source Right Radial
[2021-09-19 20:46] LABS: Basophils # 0.1 K/mm3 (0-0.2); Basophils % 1.1 % (0.1-2.0); Eosinophils # 0.3 K/mm3 (0.0-0.4); Eosinophils % 3.4 % (0.1-12.0); Hematocrit 44.9 % (37.0-47.0); Hemoglobin 15.1 g/dL (12.2-16.2); Lymphocytes # 1.7 K/mm3 (0.7-4.5); Lymphocytes % 22.5 % (10-50); Mean Corpuscular HGB Conc 33.7 g/dL (31.8-35.4); Mean Corpuscular Hemoglobin 31.9 pg (27.0-31.2); Mean Corpuscular Volume 94.7 fl (81-99); Mean Platelet Volume 9.2 fl (7.4-10.4); Monocytes # 0.5 K/mm3 (0.1-1.0); Monocytes % 6.9 % (1.7-9.3); Neutrophils # 4.9 K/mm3 (1.8-7.8); Neutrophils % 66.2 % (37.0-80.0); Platelet Count 180 K/mm3 (142-424); Red Blood Count 4.74 M/mm3 (4.20-5.40); Red Cell Distribution Width 13.1 % (11.5-17.5); White Blood Count 7.5 K/mm3 (4.8-10.8)
[2021-09-19 21:07] LABS: Alanine Aminotransferase 20 U/L (12-78); Albumin Level 4.2 g/dl (3.5-5.0); Albumin/Globulin Ratio 1.4 (1.1-1.8); Alkaline Phosphatase 87 U/L (38-126); Anion Gap 10.4 mEq/L (5-15); Aspartate Amino Transferase 24 U/L (14-36); Bilirubin,Total 0.8 mg/dl (0.2-1.3); Blood Urea Nitrogen 14 mg/dl (7-17); Calcium 9.4 mg/dl (8.4-10.2); Carbon Dioxide 30 mmol/L (22.0-30.0); Chloride 101 mmol/L (98-107); Creatinine Clearance Estimated 132 mL/min (50-200); Estimated Glomerular Filt Rate 85 ml/min (>60); GFR (African American) 103 ML/MIN (>60); Glucose 120 mg/dl (74-100); Potassium 3.4 mmoL/L (3.5-5.1); Sodium 138 mmol/L (136-145); Total Protein,Serum 7.2 g/dl (6.3-8.2)
[2021-09-19 21:12] LABS: C-Reactive Protein 6.7 mg/L (0-4)
[2021-09-19 21:14] LABS: Erythrocyte Sedimentation Rate 17 mm/hr (0-30)
[2021-09-19 21:22] LABS: Troponin I < 0.01 ng/ml (0.00-0.034)
[2021-09-19 21:26] LABS: T4 (Thyroxine) 13.2 ug/dl (5.53-11.0)
[2021-09-19 21:40] LABS: Thyroid Stimulating Hormone 2.82 uIU/mL (0.465-4.68)
[2021-09-19 21:43] LABS: Procalcitonin 0.063 ng/mL (0.0-2.0)
--- NOTE | 2021-09-19 21:58 | HMH.EDSOB ---
ED Disposition Clinical Impression: Acute exacerbation of chronic obstructive airways disease Disposition: Home, Self-Care Condition on Discharge: Good Instructions: DI for Chronic Obstructive Pulmonary Disease Additional Instructions: fluids and use meds and see pcp for follow up and pulmonary Prescriptions: levoFLOXacin [Levaquin 500mg tab] 500 mg PO DAILY #7 tab Transmission Status: Pending to [employer] predniSONE [Prednisone 20mg Tab] 20 mg PO BID #10 tab Transmission Status: Pending to [employer] Referrals: Provider,MD Yahir [Primary Care Provider] - Enoch Mccrary MD [Physician] - - Critical Care Critical Care Time: No Attestation: On 09/19/21, the high probability of a clinically significant, sudden or life threatening deterioration of the following system(s) required my full and direct attention, intervention and personal management. The time I documented below is in addition to time spent performing reported procedures but includes the following listed in this critical care notation. Medical Decision Making - Medical Records Medical records reviewed: Yes: I reviewed the patient's medical records. - Garret Inquiry Pt receiving controlled substance: No Vital Signs: 09/19/21 20:03 Temperature 98.9 F Temperature Source Oral Pulse Rate [Left Radial] 62 Respiratory Rate 18 Blood Pressure [Right Arm] 159/97 H Blood Pressure Mean [Right Arm] 117 Blood Pressure Source [Right Arm] Automatic Cuff Blood Pressure Position [Right Arm] Sitting 02 Sat by Pulse Oximetry 99 Oxygen Delivery Method Room Air - Lab Data Lab results reviewed: Yes: I reviewed the patient's lab results. Lab Results 09/19/21 20:05: WBC 7.5, RBC 4.74, Hgb 15.1, Hct 44.9, MCV 94.7, MCH 31.9 H, MCHC 33.7, RDW 13.1, Plt Count 180, MPV 9.2, Neut % (Auto) 66.2, Lymph % (Auto) 22.5, Curry % (Auto) 6.9, Eos % (Auto) 3.4, Baso % (Auto) 1.1, Neut # (Auto) 4.9, Lymph # (Auto) 1.7, Curry # (Auto) 0.5, Eos # (Auto) 0.3, Baso # (Auto) 0.1 09/19/21 20:05: ESR 17 09/19/21 20:08: Specimen Source Right radial, O2 % 21, ABG pH 7.44, ABG pCO2 39.6, ABG pO2 69.7 L, ABG HCO3 26.2 H, ABG Total CO2 27.4 H, ABG O2 Saturation 95, ABG Base Excess 2.0, Mathew Test Acceptable 09/19/21 20:37: Sodium 138, Potassium 3.4 L, Chloride 101, Carbon Dioxide 30, Anion Gap 10.4, BUN 14, Creatinine 0.70, Estimated Creat Clear 132, Estimated GFR 85, Est GFR ( Amer) 103, Glucose 120 H, Calcium 9.4, Total Bilirubin 0.8, AST 24, ALT 20, Alkaline Phosphatase 87, Troponin I < 0.01, C-Reactive Protein 6.7 H, Total Protein 7.2, Albumin 4.2, Globulin 3.0, Albumin/Globulin Ratio 1.4, Thyroxine (T4) 13.2 H Result diagrams: 09/19/21 20:05 09/19/21 20:37 Orders (Tests/Meds): ORDERS Category Date Time Status C-Reactive Protein Stat Lab 09/19/21 20:37 Results Comprehensive Metabolic Panel Stat Lab 09/19/21 20:37 Results Procalcitonin Stat Lab 09/19/21 20:37 Received T4 (Thyroxine) Stat Lab 09/19/21 20:37 Results Thyroid Stimulating Hormone Stat Lab 09/19/21 20:37 Results Troponin I Q3H Lab 09/19/21 23:15 Ordered Troponin I Q3H Lab 09/20/21 02:15 Ordered Troponin I Stat Lab 09/19/21 20:37 Results - Radiology Data #1 Image(s): Chest Image Reviewed: Yes I have reviewed radiologist's interpretation Preliminary Findings: Abnormal (see report ) - ECG Data Tracing #1 Normal Sinus Rhythm: Yes Ischemic changes: non-specific ST-T wave changes Resp/SOB HPI - General Chief Complaint: Shortness of Breath/Dyspnea Stated Complaint: cough,SOA,runny nose Time Seen by Provider: 09/19/21 21:58 Mode of Arrival: Wheelchair Source of Information: Patient, Medical Record Limitations: No Limitations Description of Symptoms (Recalled from ER Triage Doc. by RN): COUGHING FOR SEVERAL DAYS. WORSE TODAY. - History of Present Illness uri sx and cough over the last few days with hx of tob use MD Complaint: shortness of br
[2021-09-19 22:09] VITALS: BP 147/75; PULSE 61; RESP 18; TEMP 37.2; O2SAT 99
== END 2021-09-19 22:11 | disposition home or self-care (01) ==
LOC: UTC 18:57 → ER 19:22
PROVIDERS: Emergency Provider Emergency Medicine
DX: J44.1 Chronic obstructive pulmonary disease with (acute) exacerbation (principal); Z72.0 Tobacco use; E11.9 Type 2 diabetes mellitus without complications; I10 Essential (primary) hypertension; E78.5 Hyperlipidemia, unspecified; Z79.899 Other long term (current) drug therapy
CPT/HCPCS: 71046; 80053; 82803; 84145; 84436; 84443; 84484; 85025; 85651; 86140; 93005; 96374; 99284

== ENCOUNTER 2022-04-14 11:28 | Emergency (ER) | payer BC, SELFPAY ==
--- NOTE | 2022-04-14 13:04 | EXP.UTC ---
Discharge Plan Disposition Patient Disposition: Home, Self-Care Condition: Good Prescriptions Prescriptions: New amoxicillin [amoxicillin] 500 mg tablet 500 mg PO TID 10 Days Qty: 30 0RF benzonatate [benzonatate] 100 mg capsule 100 mg PO TIDP PRN (Reason: Cough) Qty: 30 0RF methylprednisolone 4 mg Tablets,Dose Pack 4 mg PO DIRECTED Qty: 21 0RF No Action azithromycin [Zithromax] 250 MG tablet 250 mg PO UD DOSE PK Qty: 6 0RF Rx Instructions: Take two (2) tablets today, then one (1) tablet days #2 thru #5 benzonatate [Tessalon Perles] 100 MG capsule 100 mg PO TIDP PRN (Reason: Cough) Qty: 30 1RF albuterol sulfate 18 GM HFA aerosol inhaler 1 - 2 puffs IH Q4-6H PRN (Reason: Shortness Of Breath Or Wheezing) Qty: 1 0RF prednisone 20 MG tablet 20 mg PO BID Qty: 10 0RF levofloxacin 500 MG tablet 500 mg PO DAILY Qty: 7 0RF benzonatate 100 MG capsule 100 mg PO TID Qty: 21 0RF amlodipine 5 MG tablet 5 mg PO DAILY triamterene-hydrochlorothiazid [Dyazide] 1 EACH capsule 1 ea PO DAILY gabapentin 100 MG capsule 100 mg PO BID atorvastatin 40 MG tablet 40 mg PO DAILY metformin 500 MG tablet 500 mg PO BID carvedilol 6.25 MG tablet 6.25 mg PO BID omeprazole 20 MG capsule,delayed release(DR/EC) 20 mg PO DAILY aspirin 81 MG tablet,chewable 81 mg PO DAILY glucosamine hill 2KCl-chondroit [Glucosamine Sulf-Chondroitin] 1 EACH capsule 1 ea PO DAILY cyanocobalamin (vitamin B-12) 1,000 MCG tablet 1,000 mcg PO DAILY calcium carbonate 600 MG tablet 600 mg PO DAILY Referrals Follow up/Referrals: Laurie Gutierrez MD [Primary Care Provider] - See instructions Activity Restrictions/Add. Instructions Additional Instructions/Restrictions: Drink plenty of fluids. Take tylenol or ibuprofen for pain or fever. Take the medications as directed. Follow up with your regular doctor. GO TO THE ER FOR ANY WORSENING SYMPTOMS Clinical Impressions Clinical Impression: Pharyngitis, Acute viral syndrome Instructions Patient Instructions: Strep Throat, DI for Strep Throat, DI for Viral Syndrome Discharge ED Provider: Parminder [facility] HPI General Stated complaint: sore throat Time Seen by Provider: 04/14/22 13:04 History of Present Illness Provider Complaint: She states that for the past 2 days she has had sore throat, chills, and bilateral ear pain. She has been exposed to strep throat over the . Related Data Home Medications Medication Instructions Recorded Confirmed amlodipine 5 mg tablet 5 mg PO DAILY Hypertension 07/11/17 08/06/18 aspirin 81 mg chewable tablet 81 mg PO DAILY Blood thinner 07/11/17 08/06/18 atorvastatin 40 mg tablet 40 mg PO DAILY Cholesterol 07/11/17 08/06/18 calcium carbonate 600 mg calcium 600 mg PO DAILY SUPPLEMENT 07/11/17 08/06/18 (1,500 mg) tablet carvedilol 6.25 mg tablet 6.25 mg PO BID Hypertension 07/11/17 08/06/18 cyanocobalamin (vitamin B-12) 1,000 mcg PO DAILY VITAMIN 07/11/17 08/06/18 1,000 mcg tablet gabapentin 100 mg capsule 100 mg PO BID Pain 07/11/17 08/06/18 glucosamine sulfate dipotassium Cl 1 ea PO DAILY [facility] 07/11/17 08/06/18 500 mg-chondroitin 400 mg capsule (Glucosamine Sulfate 2 KCL-Chondroitin) metformin 500 mg tablet 500 mg PO BID Diabetes 07/11/17 08/06/18 omeprazole 20 mg capsule,delayed 20 mg PO DAILY Indigestion 07/11/17 08/06/18 release triamterene 37.5 1 ea PO DAILY High blood pressure 07/11/17 08/06/18 mg-hydrochlorothiazide 25 mg capsule (Dyazide) Previous Rx's Medication Instructions Recorded azithromycin 250 mg tablet 250 mg PO UD DOSE PK #6 tabs 08/06/18 (Zithromax) benzonatate 100 mg capsule 100 mg PO TIDP PRN Cough #30 caps 08/06/18 (Tessalon Perles) albuterol sulfate 90 mcg/actuation 1 - 2 puffs IH Q4-6H PRN Shortness 05/13/19 aerosol inhaler Of Breath Or Wheezing #1 inh b
[2022-04-14 13:15] VITALS: BP 122/62; PULSE 93; RESP 18; TEMP 36.8; O2SAT 95; BMI 32.1
[2022-04-14 13:20] LABS: UTC Strep Screen (Rapid) Negative (Negative)
[2022-04-14 13:39] VITALS: BP 122/62; PULSE 93; RESP 18; TEMP 36.8
[2022-04-14 13:59] LABS: Adenovirus,PCR Not Detected (NotDetected); Bordetella Pertussis Not Detected (NotDetected); Chlamydophila Pneumoniae, PCR Not Detected (NotDetected); Coronavirus 19, PCR Not Detected (NotDetected); Coronavirus 229E Not Detected (NotDetected); Coronavirus NL63 Not Detected (NotDetected); Coronavirus OC43 Not Detected (NotDetected); Coronovirus HKU1,PCR Not Detected (NotDetected); Human Metapneumovirus Not Detected (NotDetected); Influenza A, PCR Not Detected (NotDetected); Influenza AH1, 2009 Not Detected (NotDetected); Influenza AH1, PCR Not Detected (NotDetected); Influenza AH3,PCR Not Detected (NotDetected); Influenza B, PCR Not Detected (NotDetected); Mycoplasma Pneumoniae, PCR Not Detected (NotDetected); Parainfluenza 1, PCR Not Detected (NotDetected); Parainfluenza 2, PCR Not Detected (NotDetected); Parainfluenza 3, PCR Not Detected (NotDetected); Parainfluenza 4, PCR Not Detected (NotDetected); Respiratory Syncytial Virus Not Detected (NotDetected); Rhinovirus/Enterovirus Not Detected (NotDetected)
== END 2022-04-14 13:39 | disposition home or self-care (01) ==
PROVIDERS: Emergency Provider Nurse Practitioner Family; PCP Internal Medicine
DX: J02.9 Acute pharyngitis, unspecified (principal); B34.9 Viral infection, unspecified
CPT/HCPCS: 87581; 87632; 87798; 87880; 99212; C9803; G0463; U0003; U0005

== ENCOUNTER 2022-05-31 14:34 | Emergency (ER) | payer BC, SELFPAY ==
[2022-05-31 15:00] VITALS: BP 128/72; PULSE 99; RESP 20; TEMP 36.9; O2SAT 97; BMI 31.6
[2022-05-31 15:13] LABS: UTC Strep Screen (Rapid) Positive (Negative)
--- NOTE | 2022-05-31 15:39 | EXP.UTC ---
Discharge Plan Disposition Patient Disposition: Home, Self-Care Condition: Good Prescriptions Prescriptions: New amoxicillin 875 mg tablet 875 mg PO BID 10 Days Qty: 20 0RF No Action albuterol sulfate 18 GM HFA aerosol inhaler 1 - 2 puffs IH Q4-6H PRN (Reason: Shortness Of Breath Or Wheezing) Qty: 1 0RF amlodipine 5 MG tablet 5 mg PO DAILY triamterene-hydrochlorothiazid [Dyazide] 1 EACH capsule 1 ea PO DAILY gabapentin 100 MG capsule 100 mg PO BID atorvastatin 40 MG tablet 40 mg PO DAILY metformin 500 MG tablet 500 mg PO BID carvedilol 6.25 MG tablet 6.25 mg PO BID omeprazole 20 MG capsule,delayed release(DR/EC) 20 mg PO DAILY aspirin 81 MG tablet,chewable 81 mg PO DAILY glucosamine hill 2KCl-chondroit [Glucosamine Sulf-Chondroitin] 1 EACH capsule 1 ea PO DAILY cyanocobalamin (vitamin B-12) 1,000 MCG tablet 1,000 mcg PO DAILY calcium carbonate 600 MG tablet 600 mg PO DAILY Creon 12,000-38,000 -60,000 unit capsule,delayed release(DR/EC) See Rx Instructions .ROUTE .COMPLEX Label Comments: TAKE 1 CAPSULE 3 TIMES EACH DAY DIRECTED FOR 14 DAYS Rx Instructions: TAKE 1 CAPSULE 3 TIMES EACH DAY DIRECTED FOR 14 DAYS Jardiance 10 mg tablet 10 mg PO DAILY Label Comments: TAKE 1 TABLET 1 TIME EACH DAY Referrals Follow up/Referrals: Laurie Gutierrez MD [Primary Care Provider] - See instructions Clinical Impressions Clinical Impression: Acute streptococcal pharyngitis Instructions Patient Instructions: DI for Strep Throat Discharge ED Provider: Wilma Washburn [facility] [place] HPI General Stated complaint: sore throat,cough,chills Mode of Arrival: Ambulatory Source of Information: Patient Limitations: No Limitations Time Seen by Provider: 05/31/22 15:23 Description of Symptoms (Recalled from Triage Doc. by RN): sore throat, fever, and coughing HEENT Symptoms (Recalled from RN notes): Yes Resp Symptoms (Recalled from RN notes): No Skin Symptoms (Recalled from RN notes): No MS Symptoms (Recalled from RN notes): No Functional Status (Recalled from RN notes): n/a History of Present Illness Provider Complaint: Pt states that she started 2 days ago with a fever sore throat and cough. She states that she gets strep a lot. They have a lot of grandchildren that come to their house. She has not taken anything for her symptoms. Related Data Home Medications Medication Instructions Recorded Confirmed amlodipine 5 mg tablet 5 mg PO DAILY Hypertension 07/11/17 05/31/22 aspirin 81 mg chewable tablet 81 mg PO DAILY Blood thinner 07/11/17 05/31/22 atorvastatin 40 mg tablet 40 mg PO DAILY Cholesterol 07/11/17 05/31/22 calcium carbonate 600 mg calcium 600 mg PO DAILY SUPPLEMENT 07/11/17 05/31/22 (1,500 mg) tablet carvedilol 6.25 mg tablet 6.25 mg PO BID Hypertension 07/11/17 05/31/22 cyanocobalamin (vitamin B-12) 1,000 mcg PO DAILY VITAMIN 07/11/17 05/31/22 1,000 mcg tablet gabapentin 100 mg capsule 100 mg PO BID Pain 07/11/17 05/31/22 glucosamine sulfate dipotassium Cl 1 ea PO DAILY [facility] 07/11/17 08/06/18 500 mg-chondroitin 400 mg capsule (Glucosamine Sulfate 2 KCL-Chondroitin) metformin 500 mg tablet 500 mg PO BID Diabetes 07/11/17 05/31/22 omeprazole 20 mg capsule,delayed 20 mg PO DAILY Indigestion 07/11/17 05/31/22 release triamterene 37.5 1 ea PO DAILY High blood pressure 07/11/17 05/31/22 mg-hydrochlorothiazide 25 mg capsule (Dyazide) empagliflozin 10 mg tablet 10 mg PO DAILY Diabetes 05/31/22 05/31/22 (Jardiance) [id number] See Rx Instructions .Route 05/31/22 05/31/22 12,000-38,000-60,000 unit .COMPLEX . capsule,delayed rel (Creon) Previous Rx's Medication Instructions Recorded albuterol sulfate 90 mcg/actuation 1 - 2 puffs IH Q4-6H PRN Shortness 05/13/19 aerosol inhaler Of Breath Or Wheezing #1 inh amoxicillin 875 mg tablet 875 mg PO BID 10 days #2
[2022-05-31 15:59] VITALS: BP 128/72; PULSE 99; RESP 20; TEMP 36.9; O2SAT 97
== END 2022-05-31 15:58 | disposition home or self-care (01) ==
PROVIDERS: Emergency Provider Nurse Practitioner Family; PCP Internal Medicine
DX: J02.0 Streptococcal pharyngitis (principal)
CPT/HCPCS: 87880; 99212; 99213; G0463

== ENCOUNTER 2022-10-07 07:00 | Outpatient (RCR) | payer BC, SELFPAY | END 2022-10-29 17:23 | disposition home or self-care (01) | LOC: PT 07:00 | PROVIDERS: PCP Internal Medicine; Visit Provider Orthopaedic Surgery Adult Reconstructive Orthopaedic Surgery | DX: S46.011A Strain of muscle(s) and tendon(s) of the rotator cuff of right shoulder, initial encounter (principal) | CPT/HCPCS: 97010; 97014; 97110; 97163; 97530; G0283 ==

== ENCOUNTER 2023-02-01 14:52 | Emergency (ER) | payer BC, SELFPAY ==
[2023-02-01 15:05] VITALS: BP 133/73; PULSE 67; RESP 18; TEMP 36.8; O2SAT 94
--- NOTE | 2023-02-01 15:18 | EXP.UTC ---
Discharge Plan Disposition Patient Disposition: Home, Self-Care Condition: Good Prescriptions Prescriptions: New guaifenesin [Mucinex] 600 mg tablet extended release 12hr 1,200 mg PO BID PRN (Reason: cough) Qty: 20 0RF azithromycin [Zithromax Z-Tee] 250 mg tablet See Rx Instructions .ROUTE .COMPLEX 5 Days Qty: 6 0RF Rx Instructions: For 250 mg dose pack: take 500 mg today (day 1), then 250 mg for 4 days (days 2-5) No Action albuterol sulfate 18 GM HFA aerosol inhaler 1 - 2 puffs IH Q4-6H PRN (Reason: Shortness Of Breath Or Wheezing) Qty: 1 0RF amlodipine 5 MG tablet 5 mg PO DAILY triamterene-hydrochlorothiazid [Dyazide] 1 EACH capsule 1 ea PO DAILY atorvastatin 40 MG tablet 40 mg PO DAILY metformin 500 MG tablet 500 mg PO BID carvedilol 6.25 MG tablet 6.25 mg PO BID aspirin 81 MG tablet,chewable 81 mg PO DAILY glucosamine hill 2KCl-chondroit [Glucosamine Sulf-Chondroitin] 1 EACH capsule 1 ea PO DAILY cyanocobalamin (vitamin B-12) 1,000 MCG tablet 1,000 mcg PO DAILY calcium carbonate 600 MG tablet 600 mg PO DAILY Creon 12,000-38,000 -60,000 unit capsule,delayed release(DR/EC) See Rx Instructions .ROUTE .COMPLEX Patient Comments: TAKE 1 CAPSULE 3 TIMES EACH DAY DIRECTED FOR 14 DAYS Rx Instructions: TAKE 1 CAPSULE 3 TIMES EACH DAY DIRECTED FOR 14 DAYS Jardiance 10 mg tablet 10 mg PO DAILY Patient Comments: TAKE 1 TABLET 1 TIME EACH DAY celecoxib 200 mg capsule 400 mg PO DAILY Patient Comments: TAKE 2 CAPSULES 1 TIME EACH DAY WITH FOOD gabapentin 600 mg tablet 600 mg PO QID Patient Comments: TAKE 1 TABLET 4 TIMES EACH DAY pantoprazole 40 mg tablet,delayed release (DR/EC) 40 mg PO DAILY Patient Comments: TAKE 1 TABLET 1 TIME EACH DAY Combivent Respimat 20-100 mcg/actuation mist See Rx Instructions .ROUTE .COMPLEX Patient Comments: INHALE 1 DOSE EVERY 6 HOURS NEEDED Rx Instructions: INHALE 1 DOSE EVERY 6 HOURS NEEDED Referrals Follow up/Referrals: Laurie Gutierrez MD [Primary Care Provider] - See instructions Activity Restrictions/Add. Instructions Additional Instructions/Restrictions: Start antibiotic today. Be sure to complete entire prescription even if feeling better Monitor temp. Tylenol every 4 hours as needed and / or ibuprofen every 6 hours as needed ( As long as your primary care physician has told you that it ok to take both. For fever/aches/pains ER if no less than 101 despite Tylenol or Motrin Humidifier/vaporizer or hot steamy shower Inhaler every 4-6 hours as needed like we discussed. If unsure how to use it, ask pharmacist to demonstrate how. Should help open airways and improve cough, wheezing, and shortness of breath Mucinex during the day for your cough and cough suppressant only at night. Be sure to drink lots of water. *Tessalon Perles will not cause drowsiness but use at bedtime to help stop cough so that you may get some rest. Follow up IMMEDIATELY for new or worsening of symptoms OR no noticeable improvement over the next 48-72 hours. 911 immediately for any life threatening symptoms such as chest pain or difficulty breathing Clinical Impressions Clinical Impression: Bronchitis Instructions Patient Instructions: Acute Bronchitis Discharge [place] Dayana [place] [facility] [place] General Stated complaint: cough Mode of Arrival: Ambulatory Source of Information: Patient Limitations: No Limitations Time Seen by Provider: 02/01/23 15:18 Description of Symptoms (Recalled from Triage Doc. by RN): Coughing, chest congestion, burning in chest HEENT Symptoms (Recalled from RN notes): Yes Resp Symptoms (Recalled from RN notes): No Skin Symptoms (Recalled from RN notes): No MS Symptoms (Recalled from RN notes): No Functional Status (Recalled from RN notes): n/a His
[2023-02-01 16:05] VITALS: BP 133/73; PULSE 67; RESP 18; TEMP 36.8; O2SAT 94
== END 2023-02-01 16:05 | disposition home or self-care (01) ==
PROVIDERS: Emergency Provider Nurse Practitioner; PCP Internal Medicine
DX: J20.9 Acute bronchitis, unspecified (principal); J44.9 Chronic obstructive pulmonary disease, unspecified; F17.210 Nicotine dependence, cigarettes, uncomplicated
CPT/HCPCS: 96372; 99212; 99214; G0463

== ENCOUNTER 2023-04-19 09:11 | Emergency (ER) | payer BC, SELFPAY ==
[2023-04-19 09:15] VITALS: BP 130/81; PULSE 67; RESP 18; TEMP 37.2; O2SAT 97
--- NOTE | 2023-04-19 09:21 | EXP.UTC ---
Discharge Plan Disposition Patient Disposition: Home, Self-Care Condition: Good Prescriptions Prescriptions: New promethazine-DM 6.25-15 mg/5 mL Syrup 5 ml PO Q6H PRN (Reason: Cough) Qty: 240 0RF prednisone 10 mg tablet 10 mg PO DIRECTED 9 Days Qty: 21 0RF Rx Instructions: Take 4 tablets daily for 3 days, then take 2 tablets daily for 3 days, then take 1 tablet daily for 3 days, then stop. levofloxacin [levofloxacin] 500 mg tablet 500 mg PO DAILY Qty: 7 0RF No Action albuterol sulfate 18 GM HFA aerosol inhaler 1 - 2 puffs IH Q4-6H PRN (Reason: Shortness Of Breath Or Wheezing) Qty: 1 0RF amlodipine 5 MG tablet 5 mg PO DAILY triamterene-hydrochlorothiazid [Dyazide] 1 EACH capsule 1 ea PO DAILY atorvastatin 40 MG tablet 40 mg PO DAILY metformin 500 MG tablet 500 mg PO BID carvedilol 6.25 MG tablet 6.25 mg PO BID aspirin 81 MG tablet,chewable 81 mg PO DAILY glucosamine hill 2KCl-chondroit [Glucosamine Sulf-Chondroitin] 1 EACH capsule 1 ea PO DAILY cyanocobalamin (vitamin B-12) 1,000 MCG tablet 1,000 mcg PO DAILY calcium carbonate 600 MG tablet 600 mg PO DAILY Creon 12,000-38,000 -60,000 unit capsule,delayed release(DR/EC) See Rx Instructions .ROUTE .COMPLEX Patient Comments: TAKE 1 CAPSULE 3 TIMES EACH DAY DIRECTED FOR 14 DAYS Rx Instructions: TAKE 1 CAPSULE 3 TIMES EACH DAY DIRECTED FOR 14 DAYS Jardiance 10 mg tablet 10 mg PO DAILY Patient Comments: TAKE 1 TABLET 1 TIME EACH DAY celecoxib 200 mg capsule 400 mg PO DAILY Patient Comments: TAKE 2 CAPSULES 1 TIME EACH DAY WITH FOOD gabapentin 600 mg tablet 600 mg PO QID Patient Comments: TAKE 1 TABLET 4 TIMES EACH DAY pantoprazole 40 mg tablet,delayed release (DR/EC) 40 mg PO DAILY Patient Comments: TAKE 1 TABLET 1 TIME EACH DAY Combivent Respimat 20-100 mcg/actuation mist See Rx Instructions .ROUTE .COMPLEX Patient Comments: INHALE 1 DOSE EVERY 6 HOURS NEEDED Rx Instructions: INHALE 1 DOSE EVERY 6 HOURS NEEDED guaifenesin [Mucinex] 600 mg tablet extended release 12hr 1,200 mg PO BID PRN (Reason: cough) Qty: 20 0RF azithromycin [Zithromax Z-Tee] 250 mg tablet See Rx Instructions .ROUTE .COMPLEX 5 Days Qty: 6 0RF Rx Instructions: For 250 mg dose pack: take 500 mg today (day 1), then 250 mg for 4 days (days 2-5) benzonatate 100 mg capsule 100 mg PO TID PRN (Reason: cough) Qty: 30 0RF Referrals Follow up/Referrals: Sherman Burleson MD [Primary Care Provider] - See instructions Activity Restrictions/Add. Instructions Additional Instructions/Restrictions: Drink plenty of fluids. Take tylenol or ibuprofen for pain or fever. Take the medications as directed. Follow up with your regular doctor. GO TO THE ER FOR ANY WORSENING SYMPTOMS Don't start the oral steroids until tomorrow, since you had the shot here today. Make sure you follow up with your primary care physician in a few days to have the chest x-ray followed up on. Clinical Impressions Clinical Impression: COPD with acute exacerbation Instructions Patient Instructions: Chronic Obstructive Pulmonary Disease Discharge ED Provider: Parminder Cooper [facility] HPI General Stated complaint: head cold, cough Time Seen by Provider: 04/19/23 09:21 History of Present Illness Provider Complaint: She states that for the past 2 weeks she has had chest and sinus congestion, ear pain, and a productive cough. She saw her pcp 12 days ago and was prescribed amoxicillin. She states that she has finished the medication and has got worse instead of getting any better. She denies documented fever, but she has had chills. Related Data Home Medications Medication Instructions Recorded Confirmed amlodipine 5 mg tablet 5 mg PO DAILY Hypertension 07/11/17 02/01/23 aspirin 81 mg chewable tablet 81 mg PO
--- NOTE | 2023-04-19 09:30 | XR_ITS ---
PROCEDURE INFORMATION: Exam: XR Chest Exam date and time: 04/19/2023 9:28 AM Age: 62 years old Clinical indication: Smoker's cough TECHNIQUE: Imaging protocol: Radiologic exam of the chest. Views: 2 views. COMPARISON: CR XR CHEST 2V 09/19/2021 8:33 PM FINDINGS: Lungs: Lungs are well aerated without a focal area of consolidation. Pleural spaces: Unremarkable. No pleural effusion. No pneumothorax. Heart/Mediastinum: Unremarkable. No cardiomegaly. Bones/joints: Unremarkable. IMPRESSION: Lungs are well aerated without a focal area of consolidation.
[2023-04-19 11:28] VITALS: BP 130/81; PULSE 67; RESP 18; TEMP 37.2; O2SAT 97
== END 2023-04-19 11:15 | disposition home or self-care (01) ==
PROVIDERS: Emergency Provider Nurse Practitioner Family; PCP Internal Medicine
DX: J44.1 Chronic obstructive pulmonary disease with (acute) exacerbation (principal); R05.9 Cough, unspecified; R09.81 Nasal congestion; R09.89 Other specified symptoms and signs involving the circulatory and respiratory systems; H92.09 Otalgia, unspecified ear; F17.210 Nicotine dependence, cigarettes, uncomplicated
CPT/HCPCS: 71046; 87635; 96372; 99212; 99214; G0463

== ENCOUNTER 2023-08-02 12:30 | Emergency (ER) | payer BC, SELFPAY ==
[2023-08-02 13:00] VITALS: BP 139/86; PULSE 91; RESP 19; TEMP 36.9; O2SAT 94; BMI 31.4
--- NOTE | 2023-08-02 13:14 | EXP.UTC ---
Discharge Plan Disposition Patient Disposition: Home, Self-Care Condition: Good Prescriptions Prescriptions: New levofloxacin 500 mg tablet 500 mg PO DAILY 5 Days Qty: 5 0RF No Action albuterol sulfate 18 GM HFA aerosol inhaler 1 - 2 puffs IH Q4-6H PRN (Reason: Shortness Of Breath Or Wheezing) Qty: 1 0RF amlodipine 5 MG tablet 5 mg PO DAILY triamterene-hydrochlorothiazid [Dyazide] 1 EACH capsule 1 ea PO DAILY atorvastatin 40 MG tablet 40 mg PO DAILY metformin 500 MG tablet 500 mg PO BID carvedilol 6.25 MG tablet 6.25 mg PO BID aspirin 81 MG tablet,chewable 81 mg PO DAILY glucosamine hill 2KCl-chondroit [Glucosamine Sulf-Chondroitin] 1 EACH capsule 1 ea PO DAILY cyanocobalamin (vitamin B-12) 1,000 MCG tablet 1,000 mcg PO DAILY calcium carbonate 600 MG tablet 600 mg PO DAILY Creon 12,000-38,000 -60,000 unit capsule,delayed release(DR/EC) See Rx Instructions .ROUTE .COMPLEX Patient Comments: TAKE 1 CAPSULE 3 TIMES EACH DAY DIRECTED FOR 14 DAYS Rx Instructions: TAKE 1 CAPSULE 3 TIMES EACH DAY DIRECTED FOR 14 DAYS Jardiance 10 mg tablet 10 mg PO DAILY Patient Comments: TAKE 1 TABLET 1 TIME EACH DAY celecoxib 200 mg capsule 400 mg PO DAILY Patient Comments: TAKE 2 CAPSULES 1 TIME EACH DAY WITH FOOD gabapentin 600 mg tablet 600 mg PO QID Patient Comments: TAKE 1 TABLET 4 TIMES EACH DAY pantoprazole 40 mg tablet,delayed release (DR/EC) 40 mg PO DAILY Patient Comments: TAKE 1 TABLET 1 TIME EACH DAY Combivent Respimat 20-100 mcg/actuation mist See Rx Instructions .ROUTE .COMPLEX Patient Comments: INHALE 1 DOSE EVERY 6 HOURS NEEDED Rx Instructions: INHALE 1 DOSE EVERY 6 HOURS NEEDED guaifenesin [Mucinex] 600 mg tablet extended release 12hr 1,200 mg PO BID PRN (Reason: cough) Qty: 20 0RF azithromycin [Zithromax Z-Tee] 250 mg tablet See Rx Instructions .ROUTE .COMPLEX 5 Days Qty: 6 0RF Rx Instructions: For 250 mg dose pack: take 500 mg today (day 1), then 250 mg for 4 days (days 2-5) benzonatate 100 mg capsule 100 mg PO TID PRN (Reason: cough) Qty: 30 0RF promethazine-DM 6.25-15 mg/5 mL Syrup 5 ml PO Q6H PRN (Reason: Cough) Qty: 240 0RF prednisone 10 mg tablet 10 mg PO DIRECTED 9 Days Qty: 21 0RF Rx Instructions: Take 4 tablets daily for 3 days, then take 2 tablets daily for 3 days, then take 1 tablet daily for 3 days, then stop. levofloxacin [levofloxacin] 500 mg tablet 500 mg PO DAILY Qty: 7 0RF Referrals Follow up/Referrals: Laurie Gutierrez MD [Primary Care Provider] - See instructions Activity Restrictions/Add. Instructions Additional Instructions/Restrictions: *Monitor Temp, Over the counter Motrin or Tylenol as directed/as needed Tylenol every 4 hours and Motrin every 6 hours (as long as your family doctor has told you that you can take it) for fever or pain. and straight to ER if unable to lower temp less than 101.0 after medication given *Warm salt water gargles may help to soothe the throat *Throat Lozenges? *Warm fluids like tea with honey may help to soothe the throat? *Sleep elevated *Humidifier/Vaporizer Take Follow up IMMEDIATELY for new or worsening symptoms or no Noticeable improvement over the next 48-72 hours. 911 for difficulty breathing or swallowing Clinical Impressions Clinical Impression: Sinusitis Qualifiers: Sinusitis location: unspecified location Chronicity: unspecified Qualified Code(s): J32.9 - Chronic sinusitis, unspecified Instructions Patient Instructions: DI for Sinusitis, Sinusitis Discharge ED Provider: Dayana Ellis [facility] General Stated complaint: sore throat, cough, nausea, chills Mode of Arrival: Ambulatory Source of Information: Patient Limitations: No Limitations Time Seen by Provider: 08/02/23 13:19 Description of Symptoms (Recalled from Triage Doc. by RN): PATIENT C/O SORE THROAT AND COUGH SINCE YESTERDAY HEENT Symptoms (Recalled from RN notes): Yes Resp Symptoms (Recalled from RN notes): Yes Skin Symptoms (Recalled from RN notes): No MS Symptoms (Recalled from RN notes): No Functional Status (Recalled from RN notes): WNL History of Present Illness Provider Complaint: Patient states that she does have hx of COPD States for the last couple of weeks she has been having sinus pain and pressure, sore throat and cough States she seen PCP and they give her Augmentin but it never works for her States that she came in today wanting something else to help clear her up before it gets worse Related Data Home Medications Medication Instructions Recorded Confirmed amlodipine 5 mg tablet 5 mg PO DAILY Hypertension 07/11/17 02/01/23 aspirin 81 mg chewable tablet 81 mg PO DAILY Blood thinner 07/11/17 02/01/23 atorvastatin 40 mg tablet 40 mg PO DAILY Cholesterol 07/11/17 02/01/23 calcium carbonate 600 mg calcium 600 mg PO DAILY SUPPLEMENT 07/11/17 02/01/23 (1,500 mg) tablet carvedilol 6.25 mg tablet 6.25 mg PO BID Hypertension 07/11/17 02/01/23 cyanocobalamin (vitamin B-12) 1,000 mcg PO DAILY VITAMIN 07/11/17 02/01/23 1,000 mcg tablet glucosamine sulfate dipotassium Cl 1 ea PO DAILY [facility] 07/11/17 08/06/18 500 mg-chondroitin 400 mg capsule (Glucosamine Sulfate 2 KCL-Chondroitin) metformin 500 mg tablet 500 mg PO BID Diabetes 07/11/17 02/01/23 triamterene 37.5 1 ea PO DAILY High blood pressure 07/11/17 02/01/23 mg-hydrochlorothiazide 25 mg capsule (Dyazide) empagliflozin 10 mg tablet 10 mg PO DAILY Diabetes 05/31/22 02/01/23 (Jardiance) [id number] See Rx Instructions .Route 05/31/22 02/01/23 12,000-38,000-60,000 unit .COMPLEX . capsule,delayed rel (Creon) celecoxib 200 mg capsule 400 mg PO DAILY . 02/01/23 02/01/23 gabapentin 600 mg tablet 600 mg PO QID Pain 02/01/23 02/01/23 ipratropium 20 mcg-albuterol 100 See Rx Instructions .Route 02/01/23 02/01/23 mcg/actuation mist for inhalation .COMPLEX . (Combivent Respimat) pantoprazole 40 mg tablet,delayed 40 mg PO DAILY gerd 02/01/23 02/01/23 release Previous Rx's Medication Instructions Recorded albuterol sulfate 90 mcg/actuation 1 - 2 puffs IH Q4-6H PRN Shortness 05/13/19 aerosol inhaler Of Breath Or Wheezing #1 inh azithromycin 250 mg tablet See Rx Instructions PO .COMPLEX 5 02/01/23 (Zithromax Z-Tee) days #6 tabs benzonatate 100 mg capsule 100 mg PO TID PRN cough #30 caps 02/01/23 guaifenesin 600 mg tablet, 1,200 mg (2 x 600 mg) PO BID PRN 02/01/23 extended release 12 hr (Mucinex) cough #20 tabs levofloxacin 500 mg tablet 500 mg PO DAILY #7 tabs 04/19/23 prednisone 10 mg tablet 10 mg PO DIRECTED 9 days #21 04/19/23 tabs promethazine-DM 6.25 mg-15 mg/5 mL 5 ml PO Q6H PRN Cough #240 mL 04/19/23 oral syrup levofloxacin 500 mg tablet 500 mg PO DAILY 5 days #5 tabs 08/02/23 Allergies Allergy/AdvReac Type Severity Reaction Status Date / Time cephalexin [From KEFLEX] Allergy Unknown Verified 04/19/23 09:37 lisinopril [LISINOPRIL] Allergy Unknown Verified 04/19/23 09:37 meloxicam [MELOXICAM] Allergy Unknown Verified 04/19/23 09:37 Worker's Comp Is this a Worker's Comp case?: No [facility] Disclaimer: The information contained in this section may have been updated after the patient was seen, as this information can be updated by other users. 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 Smoking Status: Current every day smoker tobacco type: cigarettes packs per day: 1 second hand exposure: Yes alcohol intake: never current occupational status: unemployed Travel in the last 8 weeks: None household members: spouse housing: house current occupational exposures/hazards: No caffeine: Yes ROS Obtained: Yes All systems reviewed & no additional complaints except as documented and Yes Systems reviewed as appropriate & no additional complaints except as documented Constitutional Constitutional: Reports system reviewed and no additional complaints, except as documented and Reports as per HPI ENT Ears, Nose, Mouth, and Throat: Reports system reviewed and no additional complaints, except as documented, Reports as per HPI, Reports sinus pain, Reports sinus pressure and Reports sore throat Cardiovascular Cardiovascular: Reports system reviewed and no additional complaints, except as documented and Reports as per HPI Respiratory Respiratory: Reports system reviewed and no additional complaints, except as documented, Reports as per HPI and Reports cough Gastrointestinal Gastrointestingal: Reports system reviewed and no additional complaints, except as documented and as per HPI Musculoskeletal Musculoskeletal: Reports system reviewed and no additional complaints, except as documented and Reports as per HPI Integumentary/Breasts Skin/Breast: Reports system reviewed and no additional complaints, except as documented and Reports as per HPI Physical Exam General General appearance: alert and in no apparent distress ENT ENT exam: Present mucous membranes moist Expanded ENT Exam Nose exam: Present sinus tenderness Throat exam: Present other (PND noted) Respiratory Respiratory exam: Present normal lung sounds bilaterally; Absent respiratory distress or wheezes Cardiovascular Cardiovascular exam: Present regular rate, normal rhythm and normal heart sounds Neurological Exam Neurological exam: Present alert, oriented X3 and normal gait Medical Decision Making Garret Inquiry Pt receiving controlled substance: No Garret was queried for this patient: No Vital Signs: 08/02/23 13:00 Temperature 98.4 F Temperature Source Oral Pulse Rate [Left Brachial] 91 H Respiratory Rate 19 Blood Pressure [Left Arm] 139/86 Blood Pressure Mean [Left Arm] 103 Blood Pressure Source [Left Arm] Automatic Cuff Blood Pressure Position [Left Arm] Sitting 02 Sat by Pulse Oximetry 94 L Oxygen Delivery Method Room Air Medical Decision Narrative: Patient states that she has taken Levofloxin before for sinusitis and it help and had no reactions or interactions/complications
[2023-08-02 13:18] VITALS: BP 139/86; PULSE 91; RESP 19; TEMP 36.9; O2SAT 94
[2023-08-02 13:28] LABS: UTC Strep Screen (Rapid) Negative (Negative)
[2023-08-02 13:29] LABS: UTC Influenza A Antigen Negative (Negative); UTC Influenza B Antigen Negative (Negative)
== END 2023-08-02 13:20 | disposition home or self-care (01) ==
PROVIDERS: Emergency Provider Nurse Practitioner; PCP Internal Medicine
DX: J32.9 Chronic sinusitis, unspecified (principal); J02.9 Acute pharyngitis, unspecified; R05.9 Cough, unspecified; R11.0 Nausea; R68.83 Chills (without fever); J44.9 Chronic obstructive pulmonary disease, unspecified; F17.210 Nicotine dependence, cigarettes, uncomplicated
CPT/HCPCS: 87804; 87880; 99212; 99214; G0463

== ENCOUNTER 2024-03-19 11:28 | Emergency (ER) | payer BC, SELFPAY ==
[2024-03-19 13:12] VITALS: BP 122/54; PULSE 81; RESP 18; TEMP 37.2; O2SAT 95; BMI 37.0
--- NOTE | 2024-03-19 13:49 | ED_ITS ---
Discharge Plan Disposition Patient Disposition: Home, Self-Care Condition: Good Prescriptions Prescriptions: New Paxlovid 300 mg (150 mg x 2)-100 mg tablets,dose pack See Rx Instructions .ROUTE .COMPLEX Qty: 30 0RF Rx Instructions: take TWO 150 mg tablets of nirmatrelvir with ONE 100 mg tablet of ritonavir twice daily for 5 days benzonatate 100 mg capsule 100 mg PO TID PRN (Reason: cough) Qty: 30 0RF No Action albuterol sulfate 18 GM HFA aerosol inhaler 1 - 2 puffs IH Q4-6H PRN (Reason: Shortness Of Breath Or Wheezing) Qty: 1 0RF levofloxacin 500 mg tablet 500 mg PO DAILY 5 Days Qty: 5 0RF amlodipine 5 MG tablet 5 mg PO DAILY triamterene-hydrochlorothiazid [Dyazide] 1 EACH capsule 1 ea PO DAILY atorvastatin 40 MG tablet 40 mg PO DAILY metformin 500 MG tablet 500 mg PO BID carvedilol 6.25 MG tablet 6.25 mg PO BID aspirin 81 MG tablet,chewable 81 mg PO DAILY glucosamine hill 2KCl-chondroit [Glucosamine Sulf-Chondroitin] 1 EACH capsule 1 ea PO DAILY cyanocobalamin (vitamin B-12) 1,000 MCG tablet 1,000 mcg PO DAILY calcium carbonate 600 MG tablet 600 mg PO DAILY Creon 12,000-38,000 -60,000 unit capsule,delayed release(DR/EC) See Rx Instructions .ROUTE .COMPLEX Patient Comments: TAKE 1 CAPSULE 3 TIMES EACH DAY DIRECTED FOR 14 DAYS Rx Instructions: TAKE 1 CAPSULE 3 TIMES EACH DAY DIRECTED FOR 14 DAYS Jardiance 10 mg tablet 10 mg PO DAILY Patient Comments: TAKE 1 TABLET 1 TIME EACH DAY celecoxib 200 mg capsule 400 mg PO DAILY Patient Comments: TAKE 2 CAPSULES 1 TIME EACH DAY WITH FOOD gabapentin 600 mg tablet 600 mg PO QID Patient Comments: TAKE 1 TABLET 4 TIMES EACH DAY pantoprazole 40 mg tablet,delayed release (DR/EC) 40 mg PO DAILY Patient Comments: TAKE 1 TABLET 1 TIME EACH DAY Combivent Respimat 20-100 mcg/actuation mist See Rx Instructions .ROUTE .COMPLEX Patient Comments: INHALE 1 DOSE EVERY 6 HOURS NEEDED Rx Instructions: INHALE 1 DOSE EVERY 6 HOURS NEEDED guaifenesin [Mucinex] 600 mg tablet extended release 12hr 1,200 mg PO BID PRN (Reason: cough) Qty: 20 0RF azithromycin [Zithromax Z-Tee] 250 mg tablet See Rx Instructions .ROUTE .COMPLEX 5 Days Qty: 6 0RF Rx Instructions: For 250 mg dose pack: take 500 mg today (day 1), then 250 mg for 4 days (days 2-5) benzonatate 100 mg capsule 100 mg PO TID PRN (Reason: cough) Qty: 30 0RF promethazine-DM 6.25-15 mg/5 mL Syrup 5 ml PO Q6H PRN (Reason: Cough) Qty: 240 0RF prednisone 10 mg tablet 10 mg PO DIRECTED 9 Days Qty: 21 0RF Rx Instructions: Take 4 tablets daily for 3 days, then take 2 tablets daily for 3 days, then take 1 tablet daily for 3 days, then stop. levofloxacin [levofloxacin] 500 mg tablet 500 mg PO DAILY Qty: 7 0RF Referrals Follow up/Referrals: Laurie Gutierrez MD [Primary Care Provider] - See instructions Clinical Impressions Clinical Impression: COVID Instructions Patient Instructions: DI for COVID-19 (Suspected or Confirmed ) Print Language Print Language: Sinhala Discharge ED Provider: Wilma Washburn [facility] HPI General Stated complaint: headache, runny nose, cough, covid + home test Mode of Arrival: Ambulatory Source of Information: Patient Time Seen by Provider: 03/19/24 13:29 Description of Symptoms (Recalled from Triage Doc. by RN): COVID + AT HOME, COUGH AND ONEAL HEENT Symptoms (Recalled from RN notes): No Resp Symptoms (Recalled from RN notes): Yes Skin Symptoms (Recalled from RN notes): No MS Symptoms (Recalled from RN notes): No Functional Status (Recalled from RN notes): WNL History of Present Illness Provider Complaint: Pt reports a cough and headache. She is a lung cancer pt who is on chemo and had a cardiac ablation over the summer. She has tested positive for Covid at home. has Covid as well. Related Data Home Medications ?Medication ?Instructions ?Recorded ?Confirmed amlodipine 5 mg tablet 5 mg PO DAILY Hypertension 07/11/17 02/01/23 aspirin 81 mg chewable tablet 81 mg PO DAILY Blood thinner 07/11/17 02/01/23 atorvastatin 40 mg tablet 40 mg PO DAILY Cholesterol 07/11/17 02/01/23 calcium carbonate 600 mg PO DAILY SUPPLEMENT 07/11/17 02/01/23 carvedilol 6.25 mg tablet 6.25 mg PO BID Hypertension 07/11/17 02/01/23 cyanocobalamin (vitamin B-12) 1,000 mcg PO DAILY VITAMIN 07/11/17 02/01/23 1,000 mcg tablet glucosamine sulfate dipotassium Cl 1 ea PO DAILY [facility] 07/11/17 08/06/18 500 mg-chondroitin 400 mg capsule (Glucosamine Sulfate 2 KCL-Chondroitin) metformin 500 mg tablet 500 mg PO BID Diabetes 07/11/17 02/01/23 triamterene 37.5 1 ea PO DAILY High blood pressure 07/11/17 02/01/23 mg-hydrochlorothiazide 25 mg capsule (Dyazide) empagliflozin 10 mg tablet 10 mg PO DAILY Diabetes 05/31/22 02/01/23 (Jardiance) [id number] See Rx Instructions .Route 05/31/22 02/01/23 12,000-38,000-60,000 unit .COMPLEX . capsule,delayed rel (Creon) celecoxib 200 mg capsule 400 mg PO DAILY . 02/01/23 02/01/23 gabapentin 600 mg tablet 600 mg PO QID Pain 02/01/23 02/01/23 ipratropium 20 mcg-albuterol 100 See Rx Instructions .Route 02/01/23 02/01/23 mcg/actuation mist for inhalation .COMPLEX . (Combivent Respimat) pantoprazole 40 mg tablet,delayed 40 mg PO DAILY gerd 02/01/23 02/01/23 release Previous Rx's ?Medication ?Instructions ?Recorded albuterol sulfate 90 mcg/actuation 1 - 2 puffs IH Q4-6H PRN Shortness 05/13/19 aerosol inhaler Of Breath Or Wheezing #1 inh azithromycin 250 mg tablet See Rx Instructions PO .COMPLEX 5 02/01/23 (Zithromax Z-Tee) days #6 tabs benzonatate 100 mg capsule 100 mg PO TID PRN cough #30 caps 02/01/23 guaifenesin 600 mg tablet, 1,200 mg (2 x 600 mg) PO BID PRN 02/01/23 extended release 12 hr (Mucinex) cough #20 tabs levofloxacin 500 mg tablet 500 mg PO DAILY #7 tabs 04/19/23 prednisone 10 mg tablet 10 mg PO DIRECTED 9 days #21 04/19/23 tabs promethazine-DM 6.25 mg-15 mg/5 mL 5 ml PO Q6H PRN Cough #240 mL 04/19/23 oral syrup levofloxacin 500 mg tablet 500 mg PO DAILY 5 days #5 tabs 08/02/23 benzonatate 100 mg capsule 100 mg PO TID PRN cough #30 caps 03/19/24 nirmatrelvir 300 mg (150 mg See Rx Instructions PO .COMPLEX 03/19/24 x2)-ritonavir 100 mg tablet,dose #30 tabs pack (Paxlovid) Allergies Allergy/AdvReac Type Severity Reaction Status Date / Time cephalexin [From KEFLEX] Allergy Unknown Verified 04/19/23 09:37 lisinopril [LISINOPRIL] Allergy Unknown Verified 04/19/23 09:37 meloxicam [MELOXICAM] Allergy Unknown Verified 04/19/23 09:37 Worker's Comp Is this a Worker's Comp case?: No [facility] Disclaimer: The information contained in this section may have been updated after the patient was seen, as this information can be updated by other users. 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 Smoking Status: Current every day smoker tobacco type: cigarettes packs per da y: 1 second hand exposure: Yes alcohol intake: never current occupational status: unemployed Travel in the last 8 weeks: None household members: spouse housing: house current occupational exposures/hazards: No caffeine: Yes ROS Obtained: Yes All systems reviewed & no additional complaints except as documented Constitutional Constitutional: Reports system reviewed and no additional complaints, except as documented, Reports fatigue, Reports fever(s), Reports headache(s) and Reports malaise Eyes Eyes: Reports system reviewed and no additional complaints, except as documented ENT Ears, Nose, Mouth, and Throat: Reports system reviewed and no additional complaints, except as documented, Reports headache(s) and Reports nasal discharge Cardiovascular Cardiovascular: Reports system reviewed and no additional complaints, except as documented Respiratory Respiratory: Reports system reviewed and no additional complaints, except as documented and Reports non-productive cough Gastrointestinal Gastrointestingal: Reports system reviewed and no additional complaints, except as documented Genitourinary Female Genitourinary: Reports system reviewed and no additional complaints, except as documented Musculoskeletal Musculoskeletal: Reports system reviewed and no additional complaints, except as documented Integumentary/Breasts Skin/Breast: Reports system reviewed and no additional complaints, except as documented Neurologic Neurologic: Reports system reviewed and no additional complaints, except as documented and Reports headache(s) Endocrine Endocrine: Reports system reviewed and no additional complaints, except as documented and Reports fatigue Hematologic/Lymphatic Henatologic/Lymphatic: Reports system reviewed and no additional complaints, except as documented Allergic/Immunologic Allergic/Immunologic: Reports system reviewed and no additional complaints, except as documented Physical Exam General General appearance: alert Comment: ill appearing Head Head exam: atraumatic and normocephalic Eye Eye exam: Present normal appearance ENT ENT exam: Present normal exam Neck Neck exam: Present normal inspection Chest Chest inspection: Present normal inspection and symmetric chest wall rise Respiratory Respiratory exam: Present normal lung sounds bilaterally Cardiovascular Cardiovascular exam: Present regular rate and normal rhythm Abdominal Exam Abdominal exam: Present soft Extremities Exam Extremities exam: Present normal inspection Back Exam Back exam: Present normal inspection Neurological Exam Neurological exam: Present alert and oriented X3 Psychiatric Psychiatric exam: Present normal affect and normal mood Skin Skin exam: Present warm, dry and intact Lymphatic Lymphatic Findings: no adenopathy Medical Decision Making Medical Records Screening: Per USPSTF and CDC recommendations, given the prevalence of disease in our region, it is our hospital?s policy to screen for HIV and viral Hepatitis for all patients aged 18 and over and those with ongoing risk factors. Garret Inquiry Pt receiving controlled substance: No Garret was queried for this patient: No Vital Signs: 03/19/24 13:12 Temperature 99.0 F Temperature Source Oral Pulse Rate [Left Radial] 81 Respiratory Rate 18 Blood Pressure [Left Arm] 122/54 L Blood Pressure Mean [Left Arm] 76 02 Sat by Pulse Oximetry 95
[2024-03-19 14:04] VITALS: BP 122/54; PULSE 81; RESP 18; TEMP 37.2
--- NOTE | 2024-03-19 14:39 | PC.NURSE ---
ATILIO ROBIN WANTED PT TO STOP TAKING ATORVASTIN WHILE ON MEDS FOR COVID THEN RESUME. PATIENT EDUCATED VIA PHONE. PT VOICED UNDERSTANDING
== END 2024-03-19 14:08 | disposition home or self-care (01) ==
PROVIDERS: Emergency Provider Nurse Practitioner Family; PCP Internal Medicine
DX: U07.1 COVID-19 (principal)
CPT/HCPCS: 99213; G0381

== ENCOUNTER 2024-04-21 15:47 | Outpatient (RCR) | payer BC, SELFPAY | END 2024-04-28 23:59 | disposition home or self-care (01) | LOC: PT 15:47 | PROVIDERS: PCP Internal Medicine; Visit Provider Podiatrist Foot & Ankle Surgery | DX: M72.2 Plantar fascial fibromatosis (principal); M67.01 Short Achilles tendon (acquired), right ankle | CPT/HCPCS: 97163 ==

== ENCOUNTER 2024-08-22 16:26 | Emergency (ER) | payer MEDICAID, SELFPAY ==
[2024-08-22 16:39] VITALS: BP 133/70; PULSE 79; RESP 14; TEMP 36.7; O2SAT 95; BMI 38.3
--- NOTE | 2024-08-22 16:54 | CT_ITS ---
PROCEDURE INFORMATION: Exam: CT Lumbar Spine Without Contrast Exam date and time: 08/22/2024 5:10 PM Age: 63 years old Clinical indication: Low back pain; Additional info: Midline L spine pain, rle subjective weakness TECHNIQUE: Imaging protocol: Computed tomography of the lumbar spine without contrast. Radiation optimization: All CT scans at this facility use at least one of these dose optimization techniques: automated exposure control; mA and/or kV adjustment per patient size (includes targeted exams where dose is matched to clinical indication); or iterative reconstruction. COMPARISON: No relevant prior studies available. FINDINGS: Vertebrae: No acute fracture. Minimal retrolisthesis of L2 on L3. Facet osteoarthrosis at L4-L5, L5-S1 levels. Mild degenerative disc disease at L2-L3 level. Early degenerative disc disease at L1-L2, L3-L4, L4-L5 levels. Limited evaluation for central canal stenosis due to technique. Apparent severe central canal stenosis at L4-L5 level. Neuroforaminal narrowing at L4-L5, L5-S1 levels. Vasculature: Atherosclerotic disease of aorta and iliac arteries. Soft tissues: Unremarkable. Other findings: Degenerative changes of sacroiliac joints. IMPRESSION: No fracture. If back pain persists, consider MRI for further evaluation.
--- NOTE | 2024-08-22 17:02 | ED_ITS ---
Discharge Plan Disposition Patient Disposition: Home, Self-Care Chief Complaint: PAIN Prescriptions Prescriptions: No Action albuterol sulfate 18 GM HFA aerosol inhaler 1 - 2 puffs IH Q4-6H PRN (Reason: Shortness Of Breath Or Wheezing) Qty: 1 0RF levofloxacin 500 mg tablet 500 mg PO DAILY 5 Days Qty: 5 0RF amlodipine 5 MG tablet 5 mg PO DAILY triamterene-hydrochlorothiazid [Dyazide] 1 EACH capsule 1 ea PO DAILY atorvastatin 40 MG tablet 40 mg PO DAILY metformin 500 MG tablet 500 mg PO BID carvedilol 6.25 MG tablet 6.25 mg PO BID aspirin 81 MG tablet,chewable 81 mg PO DAILY glucosamine hill 2KCl-chondroit [Glucosamine Sulf-Chondroitin] 1 EACH capsule 1 ea PO DAILY cyanocobalamin (vitamin B-12) 1,000 MCG tablet 1,000 mcg PO DAILY calcium carbonate 600 MG tablet 600 mg PO DAILY Creon 12,000-38,000 -60,000 unit capsule,delayed release(DR/EC) See Rx Instructions .ROUTE .COMPLEX Patient Comments: TAKE 1 CAPSULE 3 TIMES EACH DAY DIRECTED FOR 14 DAYS Rx Instructions: TAKE 1 CAPSULE 3 TIMES EACH DAY DIRECTED FOR 14 DAYS Jardiance 10 mg tablet 10 mg PO DAILY Patient Comments: TAKE 1 TABLET 1 TIME EACH DAY celecoxib 200 mg capsule 400 mg PO DAILY Patient Comments: TAKE 2 CAPSULES 1 TIME EACH DAY WITH FOOD gabapentin 600 mg tablet 600 mg PO QID Patient Comments: TAKE 1 TABLET 4 TIMES EACH DAY pantoprazole 40 mg tablet,delayed release (DR/EC) 40 mg PO DAILY Patient Comments: TAKE 1 TABLET 1 TIME EACH DAY Combivent Respimat 20-100 mcg/actuation mist See Rx Instructions .ROUTE .COMPLEX Patient Comments: INHALE 1 DOSE EVERY 6 HOURS NEEDED Rx Instructions: INHALE 1 DOSE EVERY 6 HOURS NEEDED guaifenesin [Mucinex] 600 mg tablet extended release 12hr 1,200 mg PO BID PRN (Reason: cough) Qty: 20 0RF azithromycin [Zithromax Z-Tee] 250 mg tablet See Rx Instructions .ROUTE .COMPLEX 5 Days Qty: 6 0RF Rx Instructions: For 250 mg dose pack: take 500 mg today (day 1), then 250 mg for 4 days (days 2-5) benzonatate 100 mg capsule 100 mg PO TID PRN (Reason: cough) Qty: 30 0RF promethazine-DM 6.25-15 mg/5 mL Syrup 5 ml PO Q6H PRN (Reason: Cough) Qty: 240 0RF prednisone 10 mg tablet 10 mg PO DIRECTED 9 Days Qty: 21 0RF Rx Instructions: Take 4 tablets daily for 3 days, then take 2 tablets daily for 3 days, then take 1 tablet daily for 3 days, then stop. levofloxacin [levofloxacin] 500 mg tablet 500 mg PO DAILY Qty: 7 0RF Paxlovid 300 mg (150 mg x 2)-100 mg tablets,dose pack See Rx Instructions .ROUTE .COMPLEX Qty: 30 0RF Rx Instructions: take TWO 150 mg tablets of nirmatrelvir with ONE 100 mg tablet of ritonavir twice daily for 5 days benzonatate 100 mg capsule 100 mg PO TID PRN (Reason: cough) Qty: 30 0RF Referrals Follow up/Referrals: Provider,Referral, MD [Primary Care Provider] - See instructions Activity Restrictions/Add. Instructions Additional Instructions/Restrictions: Call your family doctor to establish care for this visit to the emergency department and schedule follow-up within 48 hours to ensure improvement. If you have any worsening of your condition or any other concerning signs or symptoms, return to the emergency department or your primary care doctor for further evaluation. Talk to your family doctor about scheduling spine surgery follow-up as well as getting an MRI. The spine surgeon will need an MRI prior to having appointment with you. Clinical Impressions Clinical Impression: Lower back pain, Acute leg pain Stand Alone Forms Stand Alone Forms: Work/School Release Print Language Print Language: [place]an Discharge ED Provider: Parminder Sofia General Adult HPI General Chief complaint: PAIN Stated complaint: LEG PAIN Time Seen by Provider: 08/22/24 16:29 Mode of Arrival: EMS Source of Information: Patient and EMS Description of Symptoms (Recalled from ER Triage Doc. by RN): pt presents to ED with c/o right leg spams. pt reports that last thursday she was seen by pcp and was told she may have had a small stroke in her sleep, no further work up done. pt reports for the past 3-4 days she has been having a headache and cramping twitching in her right leg. History of Present Illness HPI narrative: Please note that above description of symptoms, in this electronic medical record under categorization of recalled from ER triage doctor by RN are reflective of an initial nursing assessment, however, is not reflective of my full history and physical exam that was personally taken and clarified. Consequentially, this preceding description of symptoms, which may include the patient's categorized chief complaint in the EMR, do not reflect my personal clinical impression, and the ultimate description of history of present illness and patient stated complaints should be deferred to this section of the note. Unless stated otherwise or congruent with this section of the note, additional signs, symptoms, or incongruence should be interpreted as inaccurate with my clinical impression. Related Data Home Medications ?Medication ?Instructions ?Recorded ?Confirmed amlodipine 5 mg tablet 5 mg PO DAILY Hypertension 07/11/17 02/01/23 aspirin 81 mg chewable tablet 81 mg PO DAILY Blood thinner 07/11/17 02/01/23 atorvastatin 40 mg tablet 40 mg PO DAILY Cholesterol 07/11/17 02/01/23 calcium carbonate 600 mg PO DAILY SUPPLEMENT 07/11/17 02/01/23 carvedilol 6.25 mg tablet 6.25 mg PO BID Hypertension 07/11/17 02/01/23 cyanocobalamin (vitamin B-12) 1,000 mcg PO DAILY VITAMIN 07/11/17 02/01/23 1,000 mcg tablet glucosamine sulfate dipotassium Cl 1 ea PO DAILY [facility] 07/11/17 08/06/18 500 mg-chondroitin 400 mg capsule (Glucosamine Sulfate 2 KCL-Chondroitin) metformin 500 mg tablet 500 mg PO BID Diabetes 07/11/17 02/01/23 triamterene 37.5 1 ea PO DAILY High blood pressure 07/11/17 02/01/23 mg-hydrochlorothiazide 25 mg capsule (Dyazide) empagliflozin 10 mg tablet 10 mg PO DAILY Diabetes 05/31/22 02/01/23 (Jardiance) [id number] See Rx Instructions .Route 05/31/22 02/01/23 12,000-38,000-60,000 unit .COMPLEX . capsule,delayed rel (Creon) celecoxib 200 mg capsule 400 mg PO DAILY . 02/01/23 02/01/23 gabapentin 600 mg tablet 600 mg PO QID Pain 02/01/23 02/01/23 ipratropium 20 mcg-albuterol 100 See Rx Instructions .Route 02/01/23 02/01/23 mcg/actuation mist for inhalation .COMPLEX . (Combivent Respimat) pantoprazole 40 mg tablet,delayed 40 mg PO DAILY gerd 02/01/23 02/01/23 release Previous Rx's ?Medication ?Instructions ?Recorded albuterol sulfate 90 mcg/actuation 1 - 2 puffs IH Q4-6H PRN Shortness 05/13/19 aerosol inhaler Of Breath Or Wheezing #1 inh azithromycin 250 mg tablet See Rx Instructions PO .COMPLEX 5 02/01/23 (Zithromax Z-Tee) days #6 tabs benzonatate 100 mg capsule 100 mg PO TID PRN cough #30 caps 02/01/23 guaifenesin 600 mg tablet, 1,200 mg (2 x 600 mg) PO BID PRN 02/01/23 extended release 12 hr (Mucinex) cough #20 tabs levofloxacin 500 mg tablet 500 mg PO DAILY #7 tabs 04/19/23 prednisone 10 mg tablet 10 mg PO DIRECTED 9 days #21 04/19/23 tabs promethazine-DM 6.25 mg-15 mg/5 mL 5 ml PO Q6H PRN Cough #240 mL 04/19/23 oral syrup levofloxacin 500 mg tablet 500 mg PO DAILY 5 days #5 tabs 08/02/23 benzonatate 100 mg capsule 100 mg PO TID PRN cough #30 caps 03/19/24 nirmatrelvir 300 mg (150 mg See Rx Instructions PO .COMPLEX 03/19/24 x2)-ritonavir 100 mg tablet,dose #30 tabs pack (Paxlovid) Allergies Allergy/AdvReac Type Severity Reaction Status Date / Time cephalexin (From KEFLEX) Allergy Unknown Verified 04/19/23 09:37 lisinopril (LISINOPRIL) Allergy Unknown Verified 04/19/23 09:37 meloxicam (MELOXICAM) Allergy Unknown Verified 04/19/23 09:37 [facility] Disclaimer: The information contained in this section may have been updated after the patient was seen, as this information can be updated by other users. 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 Smoking Status: Never smoker second hand exposure: Yes alcohol intake: never current occupational status: unemployed Travel in the last 8 weeks: None household members: spouse housing: house current occupational exposures/hazards: No caffeine: Yes Have you lived/traveled outside [place] in past 30 days?: No Contact w/someone who lives/traveled outside US past 30 days?: No Exposure to someone with infectious disease in past 14 days?: No Do you have a fever (greater than 100.4 F or 38 C)?: No Have you tested positive for COVID-19: No Exposed to someone with COVID-19 in past 14 days?: No Do you have a sore throat?: No Do you have a cough?: No Do you have any weakness?: No Do you have any diarrhea?: No Are you experiencing any unusual bleeding?: No Do you have any muscle aches/pain?: No Do you have any abdominal pain?: No Are you experiencing loss of taste or smell?: No Other Medical History Have you received the Flu Vaccine for this season: Yes Have you received the Pneumonia Vaccine: Yes ROS Obtained: Yes All systems reviewed & no additional complaints except as documented Physical Exam General General appearance: alert, in no apparent distress and obese Head Head exam: atraumatic and normocephalic Eye Eye exam: Present normal appearance, PERRL and EOMI Neck Neck exam: Present normal inspection, full ROM and trachea midline Respiratory Respiratory exam: Absent respiratory distress, wheezes, stridor, accessory muscle use or prolonged expiratory phase Cardiovascular Cardiovascular exam: Present regular rate, normal rhythm and other (Pulses equal symmetric in upper and lower extremities) Abdominal Exam Abdominal exam: Present soft; Absent distention, tenderness or pulsatile mass Back Exam Back exam: Present tenderness and vertebral tenderness (Lumbosacral spine) Neurological Exam Neurological exam: Present alert, oriented X3 and CN II-XII intact; Absent motor sensory deficit Skin Skin exam: Present warm and dry; Absent diaphoresis or erythema Medical Decision Making Medical Records Medical records reviewed: Yes I reviewed the patient's medical records. Screening: Per USPSTF and CDC recommendations, given the prevalence of disease in our region, it is our hospital?s policy to screen for HIV and viral Hepatitis for all patients aged 18 and over and those with ongoing risk factors. Garret Inquiry Pt receiving controlled substance: No Garret was queried for this patient: No Vital Signs: 08/22/24 16:39 Temperature 98.1 F Temperature Source Oral Pulse Rate [Left Radial] 79 Respiratory Rate 14 Blood Pressure [Right Arm] 133/70 Blood Pressure Mean [Right Arm] 91 02 Sat by Pulse Oximetry 95 Oxygen Delivery Method Room Air Lab Data Lab Results 08/22/24 16:38: WBC 7.6, RBC 3.51 L, Hgb 10.5 L, Hct 34.2 L, MCV 97.4, MCH 29.9, MCHC 30.7 L, RDW 15.2, Plt Count 189, MPV 9.5, Neut % (Auto) 77.6, Lymph % (Auto) 13.1, [place] % (Auto) 5.9, Eos % (Auto) 2.4, Baso % (Auto) 0.7, Neut # (Auto) 5.9, Lymph # (Auto) 1.0, [place] # (Auto) 0.5, Eos # (Auto) 0.2, Baso # (Auto) 0.1, Sodium 137, Potassium 3.8, Chloride 103, Carbon Dioxide 22, Anion Gap 15.8 H, BUN 17, Creatinine 0.90, Estimated Creat Clear 101, Estimated GFR 63, Est GFR ( Amer) 77, Glucose 186 H, Calcium 8.9, Total Bilirubin 0.7, AST 40 H, ALT 30, Alkaline Phosphatase 102, Troponin I < 0.01, Total Protein 7.1, Albumin 3.7, Globulin 3.4 H, Albumin/Globulin Ratio 1.1 08/22/24 18:10: Urine Color Yellow, Urine Appearance Clear, Urine pH 6.0, Ur Specific [place] 1.015, Urine Protein Negative, Urine Glucose (UA) 3+, Urine Ketones Negative, Urine Blood Negative, Urine Nitrate Negative, Urine Bilirubin Negative, Urine Urobilinogen 0.2, Ur Leukocyte Esterase Negative 08/22/24 16:38 08/22/24 16:38 Orders (Tests/Meds): ED MEDICATIONS Discontinued Medications Generic Name Dose Route Start Last Admin Trade Name Freq PRN Reason Stop Dose Admin Dexamethasone 10 mg 08/22/24 16:54 08/22/24 17:08 Dexamethasone 4mg Tablet PO 08/22/24 16:55 10 mg ONCE ONE Administration ORDERS Category Date Time Status CT lumbar spine wo con Stat Cat Scan 08/22/24 16:54 Completed CBC w/Auto Diff [Complete Blood Count Auto Diff] Stat Lab 08/22/24 16:38 Completed CMP [Comprehensive Metabolic Panel] Stat Lab 08/22/24 16:38 Completed HIV Combo Stat Lab 08/22/24 16:38 Received Hepatitis C Ab Qual. W/ RFX Stat Lab 08/22/24 16:38 Received Trop I [Troponin I] Stat Lab 08/22/24 16:38 Completed Troponin I Q3H Lab 08/22/24 20:15 Ordered Troponin I Q3H Lab 08/22/24 23:15 Ordered UA [Urinalysis and Microscopic] Stat Lab 08/22/24 18:10 Results Medical Decision Narrative: 63-year-old female presenting with multiple complaints. She has a history of hypertension, hyperlipidemia, COPD, lung cancer currently in remission. Patient states that she is concerned that her heart might be going bad because her left upper extremity swells intermittently. Not currently swollen. She also states that today, her right hip started hurting and she felt like my right leg would not even move. She states that her right lower extremity just has not been moving when I wanted to or doing what I needed to do. States that she has trouble lifting it and sometimes when she is try to put her underwear on, move carpets out of the way, kick things around on the floor, etc. No injury or pain in the leg. No bowel or bladder dysfunction, saddle anesthesia, or falls, but states that it feels weak and heavy. No upper extremity symptoms, no speech difficulties, no vision deficits, or any other neurologic complaints. She does state that intermittently her left leg and left hip hurt as well. Has never injured her back that she knows of. She does state that she recently stopped smoking due to previous lung cancer that is currently in remission and has gained almost 70 pounds since that time. History was obtained via conversation with patient. On arrival, patient hemodynamically stable, alert, oriented x4, appropriate, GCS 15, moving all extremities spontaneously, pupils equal and reactive to light. Full physical exam performed and significant for very clinically well-appearing female no acute distress. She is obese, speaking full sentences, and clinically well. Lungs are clear, ambulatory. States that she she is currently feeling weak in all of her extremities. On exam, legs and arms are symmetrically strong with 5 out of 5 strength. Reflexes are normal. Differential includes sciatica, deconditioning, spondylolisthesis, lumbosacral pathology, lumbar spine fracture, conus medullaris and cauda equina less likely, among others. Patient placed on continuous cardiac monitoring and continuous pulse ox with initial blood pressure 133/70, heart rate 79, saturation 5% on room air. Patient was given 10 mg Decadron p.o. for symptomatic management and correction of underlying abnormalities. Workup independently interpreted and significant for nonactionable CBC or CHEM. Patient's kidney function and liver function normal. Troponin negative.. On independent interpretation of imaging, patient does have moderate to severe stenosis throughout the lumbar spine, but currently asymptomatic. See radiology read for full review of final results. On reevaluation, patient able to ambulate to the bathroom. Only test remaining his urinalysis. On independent interpretation, this demonstrate no acute infection or need for. Reevaluation, patient still walking. Given the patient is having severe pain rating from her back down her leg, but no objective weakness and when these episodes of locking up, and not moving, occur, patient is standing and does not lose tone in her leg, I feel this is unlikely to be due to central cord compression/cauda equina. Given patient presentation, workup, history, this most likely represents lumbosacral radiculopathy and back pain. It is recommended that she follow-up with her family doctor for MRI and follow-up in order to potentially see spine surgeon. She states that her sister had something similar and ended up having spine surgery and it helped her significantly. Could be related to stenosis and radicular pain. Because patient at baseline without signs or symptoms of clinical decompensation, deemed appropriate for discharge. Results were relayed to patient who voiced understanding and were agreeable to outpatient management and follow up. I discussed my clinical impression with patient and answered all questions. At this time, the evidence for any other entities in the differential is insufficient to warrant any further testing or ED observation. This was explained as well. Advisory was given that persistent or worsening symptoms require further evaluation. I confirmed the understanding of this discussion. Photocomposing Keyboard Operator disclaimer Much of this encounter note is an electronic long term care social worker spoken language to printed text. Electronic long term care social worker of the spoken language may permit errors. Although I have reviewed the note, some errors may still exist. Critical Care Critical Care Time Critical Care Time: No
[2024-08-22 17:05] LABS: Basophils # 0.1 K/mm3 (0-0.2); Basophils % 0.7 % (0.1-2.0); Eosinophils # 0.2 K/mm3 (0.0-0.4); Eosinophils % 2.4 % (0.1-12.0); Hematocrit 34.2 % (37.0-47.0); Hemoglobin 10.5 g/dL (12.2-16.2); Lymphocytes % 13.1 % (10-50); Mean Corpuscular HGB Conc 30.7 g/dL (31.8-35.4); Mean Corpuscular Hemoglobin 29.9 pg (27.0-31.2); Mean Corpuscular Volume 97.4 fl (81-99); Mean Platelet Volume 9.5 fl (7.4-10.4); Monocytes # 0.5 K/mm3 (0.1-1.0); Monocytes % 5.9 % (1.7-9.3); Neutrophils # 5.9 K/mm3 (1.8-7.8); Neutrophils % 77.6 % (37.0-80.0); Platelet Count 189 K/mm3 (142-424); Red Blood Count 3.51 M/mm3 (4.20-5.40); Red Cell Distribution Width 15.2 % (11.5-17.5); White Blood Count 7.6 K/mm3 (4.8-10.8)
[2024-08-22] MEDS: DEXAMETHASONE 4MG TABLET 10 MG PO (17:08)
[2024-08-22 17:25] LABS: Alanine Aminotransferase 30 U/L (12-78); Albumin Level 3.7 g/dl (3.5-5.0); Albumin/Globulin Ratio 1.1 (1.1-1.8); Alkaline Phosphatase 102 U/L (38-126); Anion Gap 15.8 mEq/L (5-15); Aspartate Amino Transferase 40 U/L (14-36); Bilirubin,Total 0.7 mg/dl (0.2-1.3); Blood Urea Nitrogen 17 mg/dl (7-17); Calcium 8.9 mg/dl (8.4-10.2); Carbon Dioxide 22 mmol/L (22.0-30.0); Chloride 103 mmol/L (98-107); Creatinine Clearance Estimated 101 mL/min (50-200); Estimated Glomerular Filt Rate 63 ml/min (>60); GFR (African American) 77 ML/MIN (>60); Globulin 3.4 g/dL (1.3-3.2); Glucose 186 mg/dl (74-100); Potassium 3.8 mmoL/L (3.5-5.1); Sodium 137 mmol/L (136-145); Total Protein,Serum 7.1 g/dl (6.3-8.2)
[2024-08-22 18:05] LABS: Troponin I < 0.01 ng/ml (0.00-0.034)
[2024-08-22 18:13] LABS: Microscopic, Urine URINE MICROSCOPIC (MICROSCOPIC)
[2024-08-22 18:16] LABS: Appearance,Urine CLEAR (Clear); Bilirubin,Urine Negative (Negative); Blood, Urine Negative (Negative); Color,Urine YELLOW (Yellow); Glucose,Urine (UA) 3+ (Negative); Ketones,Urine Negative (Negative); Leukocyte Esterase,Urine Negative (Negative); Nitrate,Urine Negative (Negative); Protein,Urine Negative (Negative); Specific Gravity, Urine 1.015 (1.005-1.030); Urobilinogen,Urine 0.2 EU/dl (0.2)
--- NOTE | 2024-08-22 19:14 | PC.NURSE ---
Report recevied from Vaughn RN Pt resting quietly in recliner Skin pink warm and dry Resp full and easy Speech clear and appropriate.
[2024-08-22 19:20] VITALS: BP 130/70; PULSE 91; RESP 20; TEMP 36.7; O2SAT 97
[2024-08-22 19:47] LABS: Hepatitis C Ab Qual. W/ RFX NEGATIVE (Negative)
[2024-08-22 20:06] LABS: Bacteria,Urine 1+ /lpf; WBC,Urine Occasional #/hpf (0-3); Yeast,Urine 1+ /lpf
[2024-08-22 22:00] LABS: HIV Combo NEGATIVE (Negative)
--- OUTSIDE RECORDS SUMMARY | 2024-08-25 20:44 | XMS_ITS | Continuity of Care Document ---
Author Organization [facility] Phone Care Team Providers Care Driller Brake Lining Name Role Phone PERNELL ARAUJO Admitting PERNELL ARAUJO Unavailable SATYA GOTTI Primary Care PERNELL ARAUJO Primary Attending ALLERGIES AND ADVERSE REACTIONS ALLERGIES AND ADVERSE REACTIONS Code System Allergy Substance Adverse Reaction Date Reaction (Severity) Comment Status Reported By Updated By 2233 RXNorm KEFLEX Adverse reaction to substance (Mild) . active [id number] on November 17, 2023 7:56:24 PM [facility] 67142 RXNorm LISINOPRIL Adverse reaction to substance . active [id number] on November 17, 2023 7:56:24 PM [facility] 03673 RXNorm MELOXICAM Adverse reaction to substance . active [id number] on November 17, 2023 7:56:24 PM [facility] FAMILY HISTORY RELATION: Father Status: Cause of : Unknown Age at : Unknown SNOMED-CT Diagnosis Age At Onset Information not available RELATION: Mother Status: Cause of : Unknown Age at : Unknown SNOMED-CT Diagnosis Age At Onset Information not available RESULTS Patient: CARLITOS Zamudio Date of : 1960 6 LABORATORY RESULTS ORDER 500: CREATININE (LOINC : 2160-0) ORDER DATE: June 24, 2024 5:33:00 PM [facility] Specimen Source: Serum/Plasm a Specimen Type: Acellular blo od (serum or plasma) specimen PERFORMING LAB: [address] [id number] Result Comment: Final Result Date: June 24, 2024 5:54:00 PM [facility] (TECH: GS) LOINC TEST FLAG RESULT REFERENCE RANGE UPDA NISREEN BY 2160-0 Creatinine [Mass/volume] in Serum or Plasma N 0.9 mg/dL 0.5 mg/dL - 1.5 mg/dL June 5:54:00 PM UTC (TECH: GS) 00636-5 Glomerular filtratio n rate/1.73 sq M.predicted N 72 mL/min >60 June 24, 2024 5:54:00 PM UTC (TECH: GS) LABORATORY NARRATIVE RESULTS Information is not available RADIOLOGY RESULTS ORDER 300: CT CHEST/ABD/PEL NO PO-IV ONLY (LOINC: 66750-8) ORDER DATE: June 24, 2024 5:30:00 PM UTC PERFORMING LAB: [address] [id number] Final Result Date: June 25, 2024 3:53:27 AM UTC (TECH: ANGUS CROUCH MD) [address] [address] (Phone) IMAGING REPORT Name: CHICHI URBINA : 1960 Age: 63 Years Patient Type: Outpatient Sex: F Exam Description: CT CHEST/ABD/PEL NO PO-IV ONLY Exam Reason: malignant neoplasm unspc brochus or lung Order Date/Time: 06/24/2024 02:49:15 PM Dictated By: Luis Rodriguez MD Ordering Physician: PERNELL ARAUJO Attending Physician: PERNELL ARAUJO CT CHEST ABDOMEN PELVIS WITH IV CONTRAST, 06/24/2024 1:49 PM [facility] COOK INDICATION: malignant neoplasm unspc brochus or lung COMPARISON: CT imaging October 2023. PET/CT February 16, 2024. TECHNIQUE: CT imaging of the chest, abdomen, and pelvis with intravenous contrast. Dose modulation, automated exposure control, and/or iterative reconstruction technique used for dose reduction. FINDINGS: BONES AND SUPERFICIAL SOFT TISSUES: No acute process in the superficial soft tissues. No acute osseous process. No lytic or blastic osseous lesion. CHEST: THORACIC INLET: Thoracic inlet unremarkable. HEART/VESSELS: Mild to moderate multichamber cardiac enlargement. Mitral annulus calcifications. Multivessel coronary artery disease. Negative for thoracic aortic aneurysm. No central, lobar, or segmental pulmonary emboli. PAGE 1 OF 3 Name: CHICHI URBINA : 1960 Age: 63 Years Patient Type: Outpatient Sex: F Exam Description: CT CHEST/ABD/PEL NO PO-IV ONLY Exam Reason: malignant neoplasm unspc brochus or lung Order Date/Time: 06/24/2024 02:49:15 PM MEDIASTINUM: Post treatment-related changes in the region of the right hilum. There is some continued soft tissue thickening surrounding the right mainstem bronchus, not clearly progressed since the prior exam. No definite new site of pathologic mediastinal lymphadenopathy. LUNGS/PLEURA: Negative for pleural effusion. Centrilobular emphysema. Progressive airspace consolidation within the periphery of the right upper lobe also involving the portion of the superior segment of the right lower lobe. Continued peripheral fibrotic changes in the lung bases. Unchanged subpleural nodule in the left apex measuring 0.5 cm, series 4 image 58. No new nodule. No acute airspace consolidation. Diffuse bronchial wall thickening without bronchiectasis. No background nodularity. ABDOMEN/PELVIS: Vasculature: Negative for aortic aneurysm. Peritoneum: No significant ascites. Liver: No focal hepatic lesion. Spleen: No focal splenic lesion. Pancreas: No focal lesion or adjacent inflammatory fluid. Biliary System: No biliary dilatation. Adrenals: Negative for adrenal nodule. Kidneys/Ureters: Multiple right greater than left low-density renal lesions. No hydronephrosis. No evidence of ureteral calculus. Bladder: Unremarkable. Reproductive System: No acute process. Retroperitoneum: No acute process. Negative for pathologic paraaortic or iliac lymph nodes. Bowel: Normal caliber small and large bowel. 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 The appendix is within normal limits. Mesenteries: Negative for mesenteric lymphadenopathy, mass, or organized fluid collection. IMPRESSION: Posttreatment changes in the mediastinum without new site of mediastinal lymphadenopathy. Progressive consolidation in the right upper lung zones, favor evolving radiation pneumonitis. Recommend correlation with clinical history. No new nodule. No evidence of distal metastatic disease. Other findings as above. . . . S/D/G Electronically signed by: Luis Rodriguez MD 06/24/2024 10:53 PM [facility] Principal Wet Machine Tender Name: Lusi Rodriguez Provider ID: [id number] PAGE 3 OF 3 PATHOLOGY NARRATIVE RESULTS Information is not available MICROBIOLOGY RESULTS No Micro Labs/Results Exist for Patient BLOOD ADMIN RESULTS Information is not available MEDICATIONS HOME MEDICATIONS Status RXNORM NDC Medication Dose Route Frequency Dates Comments Reported By Updated By Drug Treatment Unknown DISCHARGE MEDICATIONS Status RXNORM NDC Medication Dose Route Frequency Dates Comments Physician Updated By No Discharge Medication Info rmation Available INPATIENT MEDICATIONS Status RXNORM NDC Medication Dose Route Frequency Rat e Quantity Dates Comments Physician Updated By No Inpatient Medication Info rmation Available SOCIAL HISTORY SOCIAL HISTORY SNOMED-CT 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 Element Description Effective Dates Offered Cessation Comment UpdatedBy [id number] Historical Tobacco smoking status Former Smoker [id number] on November 17, 2023 8:51:08 PM [facility] [id number] Historical Tobacco smoking status Current Every Day Smoker [id number] on September 25, 2023 5:36:25 PM [facility] SOCIAL HISTORY - Gender Sex: Female SOCIAL HISTORY - Status : status i nformation is not available Intention in Next Year: intention information is not available SOCIAL HISTORY - Sexual Behavior Sexual Orientation Gender Identity SNOMED-CT Description SNO MED -CT Description Activity Level No of Partners Partner Type UpdatedBy Information is not available HEALTH CONCERNS Problems Concern Status Health Concern problem infor mation not available. Smoking Status Status Years Used Consumed packs p er day Health Concern smoking histo ry information not available. Family History Concern Status Health Concern family histor y information not available. ENCOUNTERS ENCOUNTER INFORMATION Reason for Visit CT CHEST/ABD/PELVIS W Admission June 24, 2024 5:05:00 PM [place] [id number] Discharge June 24, 2024 9:05:00 PM [facility] DISCHARGED TO HOME OR SELF CARE ENCOUNTER DIAGNOSES Notes information is not franck ilable. Code System Diagnosis Onset Date Diagnosis information is not available. ABSTRACT DIAGNOSES Code System Diagnosis Updated By C34.90 ICD10 MALIGNANT NEOPLA SM OF UNSPECIFIED PART OF UNSPECIFIED BRONCHUS OR LUNG [id number] on June 27, 2024 11:50:05 AM [facility] C34.90 ICD10 MALIGNANT NEOPLA SM OF UNSPECIFIED PART OF UNSPECIFIED BRONCHUS OR LUNG [id number] on June 27, 2024 11:50:05 AM [facility] J18.1 ICD10 LOBAR PNEUMONIA, UNSPECIFIED ORGANISM [id number] on June 27, 2024 11:50:05 AM [facility] CARE TEAM Care Driller Brake Lining Role PERNELL ARAUJO Admitting PERNELL ARAUJO Referring SATYA GOTTI Primary Care PERNELL ARAUJO Primary Attending CARE 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
--- OUTSIDE RECORDS SUMMARY | 2024-08-25 20:44 | XMS_ITS | Continuity of Care Document ---
Author Organization [facility] Phone Care Team Providers Care Fisher Pound Net Or Trap Name Role Phone IRENE JOHNS Primary Attending [email or web address] IRENE JOHNS Unavailable [email or web address] IRENE JOHNS Admitting [email or web address] SATYA GOTTI Primary Care ALLERGIES AND ADVERSE REACTIONS ALLERGIES AND ADVERSE REACTIONS Code System Allergy Substance Adverse Reaction Date Reaction (Severity) Comment Status Reported By Updated By 2231 RXNorm KEFLEX Adverse reaction to substance (Mild) . active [id number] on November 17, 2023 7:56:24 PM [facility] 349[address] RXNorm LISINOPRIL Adverse reaction to substance . active [id number] on November 17, 2023 7:56:24 PM [facility] 23348 RXNorm MELOXICAM Adverse reaction to substance . active [id number] on November 17, 2023 7:56:24 PM [facility] FAMILY HISTORY RELATION: Father Status: Cause of : Unknown Age at : Unknown SNOMED-CT Diagnosis Age At Onset Information not available RELATION: Mother Status: Cause of : Unknown Age at : Unknown SNOMED-CT Diagnosis Age At Onset Information not available RESULTS Patient: CARLITOS Zamudio Date of : 1960 6 LABORATORY RESULTS ORDER 400: CREATININE (LOINC : 2160-0) ORDER DATE: August 17, 2024 2:18:00 PM [facility] Specimen Source: Serum/Plasm a Specimen Type: Acellular blo od (serum or plasma) specimen PERFORMING LAB: [address] [id number] Result Comment: Final Result Date: August 17, 2024 2:39:00 PM [facility] (TECH: CASI) LOINC TEST FLAG RESULT REFERENCE RANGE UPDA NISREEN BY 2160-0 Creatinine [Mass/volume] in Serum or Plasma N 0.9 mg/dL 0.5 mg/dL - 1.5 mg/dL August 17 2:39:00 PM [facility] (TECH: EAB) 31459-9 Glomerular filtratio n rate/1.73 sq M.predicted N 72 mL/min >60 August 17, 2024 2:39:00 PM UTC (TECH: EAViktor) LABORATORY NARRATIVE RESULTS Information is not available RADIOLOGY RESULTS ORDER 200: CT CHEST W (LOINC : 11540-4) ORDER DATE: August 17, 2024 2:13:00 PM [facility] PERFORMING LAB: [address] [id number] Final Result Date: August 18, 2024 8:10:57 AM [facility] (TECH: CARLYN RIVERA MD) [address] [address] (Phone) IMAGING REPORT Name: CHICHI URBINA : 1960 Age: 63 Years Patient Type: Outpatient Sex: F Exam Description: CT CHEST W Exam Reason: [id number] MALIGNANT NEOPLASM OF UNSP PART OF UNSP BRONCHUS OR JOSH Order Date/Time: 08/17/2024 11:58:04 AM Dictated By: Hardik Duff MD Ordering Physician: IRENE JOHNS Attending Physician: IRENE JOHNS EXAM: CT CHEST WITH IV CONTRAST HISTORY: Age-63 years. Gender-Female. C3490 MALIGNANT NEOPLASM OF UNSP PART OF UNSP BRONCHUS OR JOSH. TECHNIQUE: Axial images were obtained through the chest with intravenous contrast. Multiplanar reconstructions and 3-D maximum intensity projections were performed. CT Dose Reduction Technique-all CT scans are performed using dose optimization techniques as appropriate to the exam being performed. These techniques include automatic exposure control and/or standardized protocols utilizing dose matching according to exam type and patient size. COMPARISON: CT June 24, 2024 FINDINGS: THYROID: No dominant thyroid nodule. LUNGS AND PLEURA: Slightly improved opacification in the scarring in the right upper lobe posterior segment. Minimal dependent atelectasis versus scarring unchanged. Stable subpleural micronodule in the left lower lobe apical segment. No new consolidation, pleural effusion or pneumothorax. PAGE 1 OF 2 Name: CHICHI URBINA : 1960 Age: 63 Years Patient Type: Outpatient Sex: F Exam Description: CT CHEST W Exam Reason: [id number] MALIGNANT NEOPLASM OF UNSP PART OF UNSP BRONCHUS OR JOSH Order Date/Time: 08/17/2024 11:58:04 AM HEART \T\ MEDIASTINUM: Mild to moderate coronary calcifications. Normal heart size. Mitral valve calcifications. ESOPHAGUS: Normal esophagus. UPPER ABDOMEN: Old granulomas in the liver and spleen. VASCULATURE: Normal calibre of the major vasculature. LYMPH: Calcified right hilar lymph node. No new mediastinal or hilar lymphadenopathy . Multiple right renal cysts unchanged. SOFT TISSUES: Normal. BONES: No acute bony abnormality. IMPRESSION: 1. Slightly improved opacification in the scarring in the right upper lobe posterior segment. No new consolidation, pleural effusion or pneumothorax. 2. Stable subpleural micronodule in the left lower lobe apical segment. 3. Mild to moderate coronary calcifications. Mitral valve calcifications. Electronically signed by: Hardik Duff MD 08/18/2024 04:10 AM EDT RP Principal Rim Buster Name: Hardik Duff Provider ID: [id number] PAGE 2 OF 2 PATHOLOGY NARRATIVE RESULTS Information is not available [...] Description Effective Dates Offered Cessation Comment UpdatedBy [id number] Historical Tobacco smoking status Former Smoker [id number] on November 17, 2023 8:51:08 PM [facility] [id number] Historical Tobacco smoking status Current Every Day Smoker [id number] on September 25, 2023 5:36:25 PM [facility] SOCIAL HISTORY - Gender Sex: Female [...] ENCOUNTERS ENCOUNTER INFORMATION Reason for Visit CT CHEST W Admission August 17, 2024 1:58:[address] [address] Discharge August 17, 2024 5:58:00 PM [facility] DIS CHARGED TO HOME OR SELF CARE ENCOUNTER DIAGNOSES Notes information is not franck ilable. Code System Diagnosis Onset Date Diagnosis information is not available. 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 [id number] on August 20, 2024 8:49:37 AM [facility] R91.8 ICD10 OTHER NONSPECIFI C ABNORMAL FINDING OF LUNG FIELD [id number] on August 20, 2024 8:49:37 AM [facility] CARE TEAM Care Fisher Pound Net Or Trap Role IRENE JOHNS Primary Attending IRENE JOHNS Referring IRENE JOHNS Admitting SATYA GOTTI Primary Care 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 Role on Team Status Start Date End Date Update d By SHEN HERNADEZ MD PCP normal August 16, 2024 4:06:57 PM [facility] August 17, 2024 5:58:00 PM [facility] [id number] on August 16, 2024 4:06:57 PM [facility] NAT BONILLA MD Referring normal August 16, 2024 4:06:57 PM [facility] August 17, 2024 5:58:00 PM [place] [id number] on August 16, 2024 4:06:57 PM NMLenka BONILLA MD Attending normal August 16, 2024 4:06:57 PM [facility] August 17, 2024 5:58:00 PM [place] [id number] on August 16, 2024 4:06:57 PM [facility] NAT BONILLA MD Admitting normal August 16, 2024 4:06:57 PM [facility] August 17, 2024 5:58:00 PM [place] [id number] on August 16, 2024 4:06:57 PM [facility]
--- OUTSIDE RECORDS SUMMARY | 2024-08-25 20:44 | XMS_ITS | Continuity of Care Document ---
Author Organization [facility] Pulmonary Medicine [address] [facility] [address] [place] [address] Care Team Providers Care Flying Instructor Name Role Phone SATYA GOTTI Primary Care Provider SRIRAM ARAUJO Hematology/Oncology Assessment Encounter Date Assessment Date Assessment LastModified by Organization Details LastModified Time 07/19/2024 07/19/2024 63-year-old female smoked 45 pack years. She is currently active smoker. Diagnosed with COPD around 2017. No oxygen use. No PAP use. She is dyspnea on heavy exertion only. Positive history of cough and sputum production daily clear in color. Intermittent wheezing. No previous hospitalization. She denied history of thrombosis. No heart disease. No history of obstructive sleep apnea. Positive history of nasal drainage. Positive history of GERD. July 2023 PFT Moderate hyperinflation suggestive underlying obstructive disease. Nonspecific spirometry. Moderate reduced diffusion capacity DLCO 41%. June 24, 2024 CT chest post treatment changes in the mediastinum without new site of mediastinal lymphadenopathy. Bronchoscope consolidation right upper lobe lung zones favor revolving radiation pneumonitis. No evidence of distal metastasis. August 2023 PET scan 1. Dominant right suprahilar mass with associated hypermetabolism, highly concerning for neoplasia. Hypermetabolic right paratracheal lymph node, consistent with metastatic adenopathy. Small mildly hypermetabolic right upper lobe lung nodules which may be inflammatory or neoplastic. Favor neoplastic involvement. August 2023 MRI brain no acute intracranial findings. No evidence of intracranial plasma. July [address] 3.7 cm right upper lung suprahilar mass very concerning for malignancy. Recommend CT with contrast. Right paratracheal lymph node measuring 17 mm which could represent metastasis. Subcentimeter right upper lobe and left lower lobe nodules too small for PET/CT. Recommend 3-month follow-up CT. Benign right adrenal adenoma. Probable right renal cyst, partially visualized. Consider CT with and without contrast. Lung RADS category 4B. August 11, 2023 bronchoscopy with EBUS TBNA sampling right paratracheal lymph node/mass; positive for small cell lung cancer. Station 11 L, 4 L, station 7- for malignancy. Lymphocytes seen. she is currently under care of Medical Oncology. She status post 4 cycles chemo cisplatin and etoposide and Radiation therapy all, whole brain radiation prophylactically. October 2023 admitted to intensive care unit for septicemia and atrial fibrillation with RVR. Port-A-Cath was removed secondary to infection. Patient was also cardioverted. plan for follow up imaging next few weeks. Continue DuoNebs Nebulizer Continue Combivent inhaler. Continue Symbicort 160 mg Continue Singulair 10 mg daily. She has hoarseness, I advised referral to ENT for evaluation however she declined. June 2023 Resting saturation 93% on room air. Check 6 minute walk test. Patient quit smoking September 2023. Patient on portable oxygen. Use doxycycline 100 mg b.i.d. for changes seen on recent imaging. Last radiation more than 5-6 months ago. I doubt radiation pneumonitis. Check CT chest with contrast in 6 weeks. RTC 6 weeks junie Not available 07/19/2024 17:01:42 Plan of Treatment Reminders Order Date Submit Date Provider Last Modified By Organization Details Last Modified Time Details Appointments FOLLOW UP 30 2024 11:00A M Summer Martines PA-C Not available Not available Not available OV EST 15 2024 03:30P M Denisha Quispe M.D Not available Not available Not available Lab CMP, serum or plasma 2024 025 [email or web address] [facility], [address] [place] [address] [place], [address], 07/26/2024 07:48:27 Referral None recorded. Procedures None recorded. Surgeries None recorded. Imaging CT, chest, w/ contrast 2024 025 HARI [facility] ([facility]), [address] [place] [address] [place], [address], 08/18/2024 04:19:09 Medication Orders doxycycli ne hyclate 100 mg capsule 2024 025 HARI [facility], [address] [place] [address], [place], [place], [id number], 07/19/2024 17:24:09 Patient TargetsNo targets recorded. Patient InstructionsNo instructions recorded. Reason for Referral None Reported. Results Created Date Observation Date Name Description Value Unit Range Abnormal Flag Note LastModifiedBy Organization Detail LastModifiedTime 06/24/1906/24/2024 CT, abdom en + pelvi s, w/o contr ast [facility] [address] [place] [address] (Phone ) JUVENAL Gallagher REPORT Name: TERESA SHARP : 1960 Accoun t #: [id number] Age: 63 Years Patien t Type: Outpat ient Sex: F Access ion#: [id number] Exam Descri ption: CT CHEST/ ABD/PE L NO PO-IV ONLY Exam Reason : malign ant neopla sm unspc brochu s or lung Order Date/T sammi: 2024 02:49: 15 PM Dictat ed By: Angelina Ramachandran se, MD Orderi Physic juana: SRIRAM ARAUJO Attend ing Physic juana: SRIRAM ARAUJO CT CHEST ABDOME N PELVIS WITH IV CONTRA ST, 06/24/19 1:49 PM MANAGER INFUSION INDICA TION: malign ant neopla sm unspc brochu s or lung COMPAR JOSE: CT imagin g October 2023. PET/CT Octobe r 2023. TECHNI QUE: CT imagin g of the chest, abdome n, and pelvis with intrav enous contra st. Dose modula tion, automa samaria exposu re contro l, and/or iterat elissa recons tructi on techni que used for dose reduct ion. FINDIN GS: BONES AND SUPERF ICIAL SOFT TISSUE S: No acute proces s in the superf icial soft tissue s. No acute osseou s proces s. No lytic or blasti c osseou s lesion . CHEST: THORAC IC INLET: Thorac ic inlet unrema rkable . HEART/ VESSEL S: Mild to modera te multic hamber cardia c enlarg ement. Mitral annulu s calcif icatio ns. Multiv essel caballero ry artery diseas e. Negati ve for thorac ic aortic aneury sm. No centra l, lobar, or segmen chance pulmon chato emboli . PAGE 1 OF 3 Name: TERESA SHARP : 1960 Accoun t #: [id number] Age: 63 Years Patien t Type: Outpat ient Sex: F Access ion#: [id number] Exam Descri ption: CT CHEST/ ABD/PE L NO PO-IV ONLY Exam Reason : malign ant neopla sm unspc brochu s or lung Order Date/T sammi: 2024 02:49: 15 PM MEDIAS TINUM: Post treatm ent-re lated change s in the region of the right hilum. There is some contin ued soft tissue thicke amelie surrou nding the right mainst em bronch us, not clearl y progre ssed since the prior exam. No defini te new site of pathol ogic medias tinal lympha denopa thy. LUNGS/ PLEURA : Negati ve for pleura l effusi on. Centri lobula r emphys rich. Progre ssive airspa ce consol idatio n within the periph sudheer of the right upper lobe also involv ing the portio n of the superi or segmen t of the right lower lobe. Contin ued periph eral fibrot ic change s in the lung bases. Unchan ged subple ural nodule in the left apex measur ing 0.5 cm, series 4 image 58. No new nodule . No acute airspa ce consol idatio n. Diffus e bronch ial wall thicke amelie withou t bronch iectas is. No backgr ound nodula rity. ABDOME N/PELV IS: Vascul ature: Negati ve for aortic aneury sm. Perito neum: No signif icant ascite s. Liver: No focal hepati c lesion . Spleen : No focal spleni c lesion . Pancre as: No focal lesion or adjace nt inflam matory fluid. Biliar y System : No biliar y dilata tion. Adrena ls: Negati ve for adrena l nodule . Kidney s/Uret ers: Multip le right greate r than left low-de nsity renal lesion s. No hydron ephros is. No eviden ce of ureter al calcul us. Bladde r: Unrema rkable . Reprod uctive System : No acute proces s. Retrop eriton eum: No acute proces s. Negati ve for pathol ogic paraao rtic or iliac lymph nodes. Bowel: Normal calibe r small and large bowel. Coloni c divert icular PAGE 2 OF 3 : 1960 Accoun t #: [id number] Age: 63 Years Patien t Type: Outpat ient Sex: F Access ion#: [id number] Exam Descri ption: CT CHEST/ ABD/PE L NO PO-IV ONLY Exam Reason : malign ant neopla sm unspc brochu s or lung Order Date/T sammi: 2024 02:49: 15 PM diseas e withou t albino lonic strand ing. The append ix is within normal limits . Mesent eries: Negati ve for mesent gera lympha denopa thy, mass, or organi zed fluid collec tion. IMPRES LISA: Posttr eatmen t change s in the medias tinum withou t new site of medias tinal lympha denopa thy. Progre ssive consol idatio n in the right upper lung zones, favor evolvi ng radiat ion pneumo nitis. Recomm end correl ation with clinic al histor y. No new nodule . No eviden ce of distal metast atic diseas e. Other findin gs as above. . . . S/D/G Electr onical ly signed by: Angelina Ramachandran se, MD 2024 10:53 PM EST RP Workst ation: [id number] Princi pal Interp reter Name: Angelina Ramachandran se Provid er ID: [id number] PAGE 3 OF 3 CC'ed Logic: Orderi ng Provid er: GAYLE GIMENEZ CC Provid er: SHEN LIZAMA Attend ing Provid er: GAYLE GIMENEZ Referr ing Provid er: GAYLE Berryitt ing Provid er: GAYLE GIMENEZ [email or web address] [facility] ([facility]) [address] [place] [address] [place], [address], 06/27/2024 13:59:26 08/19/19 25 08/17/2024 CT, chest , w/ contr ast [facility] [address] [place] [address] [phone] (Phone ) JUVENAL Gallagher REPORT Name: TERESA SHARP : 1960 Accoun t #: [id number] Age: 63 Years Patien t Type: Outpat ient Sex: F Access ion#: [id number] Exam Descri ption: CT CHEST W Exam Reason : [id number] MALIGN ANT NEOPLA SM OF UNSP PART OF UNSP BRONCH US OR JOSH Order Date/T sammi: 2024 11:58: 04 AM Dictat ed By: Iliana carreon, Orderi Physic juana: TERRENCE DUMONT, YOUSOF Attend ing Physic juana: TERRENCE DUMONT, YOUSOF EXAM: CT CHEST WITH IV CONTRA ST HISTOR Y: Age-63 years. Gender -Femal e. [id number] MALIGN ANT NEOPLA SM OF UNSP PART OF UNSP BRONCH US OR JOSH. TECHNI QUE: Axial images were obtain ed throug h the chest with intrav enous contra st. Multip lanar recons tructi ons and 3-D maximu m intens ity projec tions were perfor med. CT Dose Reduct ion Techni que-al l CT scans are perfor med using dose optimi zation techni ques as approp riate to the exam being perfor med. These techni ques includ e automa tic exposu re contro l and/or standa rdized protoc ols utiliz ing dose matchi ng accord ing to exam type and patien t size. COMPAR JOSE: CT ry 2024 FINDIN GS: THYROI D: No domina nt thyroi d nodule . 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 Minima l depend ent atelec tasis versus scarri ng unchan ged. Stable subple ural micron odule in the left lower lobe apical segmen t. No new consol idatio n, pleura l effusi on or pneumo thorax . PAGE 1 OF 2 Name: TERESA SHARP : 1960 Accoun t #: [id number] Age: 63 Years Patien t Type: Outpat ient Sex: F Access ion#: [id number] Exam Descri ption: CT CHEST W Exam Reason : [id number] MALIGN ANT NEOPLA SM OF UNSP PART OF UNSP BRONCH US OR JOSH Order Date/T sammi: 2024 11:58: 04 AM HEART & MEDIAS TINUM: Mild to modera te caballero ry calcif icatio ns. Normal heart size. Mitral valve calcif icatio ns. ESOPHA NORMA: Normal esopha norma. UPPER ABDOME N: Old granul omas in the liver and spleen . ------ ------ VASCUL ATURE: Normal calibr e of the major vascul ature. LYMPH: Calcif ied right hilar lymph node. No new medias tinal or hilar lympha denopa thy . Multip le right renal cysts unchan ged. ------ ------ SOFT TISSUE S: Normal . BONES: No acute bony abnorm ality. IMPRES LISA: 1. 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 No new consol idatio n, pleura l effusi on or pneumo thorax . 2. Stable subple ural micron odule in the left lower lobe apical segmen t. 3. Mild to modera te caballero ry calcif icatio ns. Mitral valve calcif icatio ns. Electr onical ly signed by: Iliana carreon MD 2024 04:10 AM EDT RP Workst ation: [id number] Princi pal Interp reter Name: Iliana carreon Provid er ID: [id number] PAGE 2 OF 2 CC'ed Logic: Orderi ng Provid er: ELGARI ED YOUSOF CC Provid er: SHEN PATTERSON AD Attend ing Provid er: ELGARI ED YOUSOF Referr ing Provid er: ELGARI ED YOUSOF Admitt ing Provid er[facility] YOU[facility]F [facility] [address] [place] [address] [place], [address], 08/18/2024 08:16:46 Result Notes None recorded. Problems Name Problem SNOMED Code Status Onset Date Resolution Date Notes Provider Name and Address Organization Details Recorded Time Prieto hematuria 207421471 Active 2021 Catherine Lamb null, [place] - [facility] & [place] 2 09:59:40 Family history of malignant neoplasm 779427098 Active 2021 Maribeth barks[place], [place] - [facility] - [facility] & [place] 2 11:12:49 Retention of urine 639634077 Active 2021 Catherine Lamb null, [place] - [place] - [place] & [place] 2 10:00:08 Diabetes mellitus 58539742 Active 2021 Maribeth Santos null, [place] - [place] & [place] 2 11:12:49 Chronic obstructive pulmonary disease 33021294 Active 2021 Maribeth [place], [place] - [place] - [place] & [place] 2 11:12:49 Hypertensive disorder 85245515 Active 2021 Maribeth [place], [place] - [facility] - [facility] & [place] 2 11:12:49 Smoker 92325357 Active 2021 Maribeth Santos null, [place] - [facility] & [place] 2 11:12:49 Urethral caruncle 6291087 Active 2021 Maribeth Santos null, [place] - [facility] - [facility] & [place] 2 11:12:49 Polyp of urethra 78120402 Active 2021 Maribeth Santos null, [place] - [facility] - [facility] & [place] 2 11:12:49 Atrophic vaginitis 58337486 Active 2021 Maribeth Santos null, [place] - [facility] - [facility] & [place] 2 11:12:49 Cigarette smoker 78701829 Active Maribeth Santos null, [place] - [facility] - [facility] & [place] 2 11:12:49 Family history of malignant neoplasm of kidney 104674929 Active Mraibeth Santos null, [place] - [facility] - [facility] & [place] 2 11:12:49 Gastroesophage al reflux disease 927440517 Active 2022 Hafsa Hung null, [place] - [place] - [place] & [place] 3 09:26:51 Chemotherapy-i nduced nausea and vomiting 73689870 Active 2023 Zoeymaxime Ordonezvanessa null, [place] - [facility] - [facility] & [place] 4 14:16:16 Abdominal bloating 100955383 Active 2023 Maribel Overton NP [address], [address], [place], [address], [place] - [facility] - [facility] & [place] 4 09:03:07 Acid reflux 721886870 Active 2023 Maribel Overton NP [address], [address], [place], [address], [place] - [facility] - [facility] & [place] 4 09:03:07 Hyperplastic polyp of large intestine 364264538 Active 2023 Maribel Overton NP [address], [address], [place], [address], [place] - [place] - [place] & [place] 4 09:03:07 Multiple renal cysts 773316806 Active 2023 Maribel Overton NP [address], [address], [place], [address], [place] & [place] 4 09:03:07 Increased body mass index 61622351 Active 2023 Maribel Overton NP [address], [address], [place], [address], [place] - [place] & [place] 4 09:03:08 Diverticular disease of colon 253232393 Active 2023 Maribel Overton NP [address], [address], [place], [address], [place] - [place] & [place] 4 09:03:08 Problem Notes None recorded. Procedures Surgical History Date Name Laterality Status Provider Name and Address Organization Details Recorded Time 07/20/19 25 6 Minute Walk Test completed Mary [place] - [facility] - [place] & [place] 07/19/2024 16:16:43 10/26/19 24 removal of implantable venous access port completed Rayne [place] - [facility] - [place] & [place] 10/27/2023 08:16:16 09/25/19 24 insertion of implantable venous access port completed Rayne [place] - [facility] - [place] & [place] 09/28/2023 09:27:25 08/18/19 24 6 Minute Walk Test completed Amanda [place] - [facility] - [place] & [place] 08/18/2023 13:36:17 06/30/19 24 6 Minute Walk Test completed Mary [place] - [facility] - [place] & [place] 06/30/2023 16:35:48 04/22/20 22 EMG/ Nerve Conduction Study completed Bairon Valente M.D [address], [address], [facility] [place], [address], [place] - [facility] - [place] & [place] 04/27/2022 18:10:54 04/03/20 22 EMG/ Nerve Conduction Study completed Bairon Valente M.D [address] [place] [address], [address], [place], [address], [place] - [facility] - [place] & [place] 04/03/2022 15:01:54 03/24/20 22 Cystoscopy-Fema le completed Vonnie Haasel [place] - [facility] - [place] & [place] 03/24/2022 15:46:34 12/03/19 22 Date of Last Pap Smear completed maribeth [place] - [facility] - [place] & [place] 06/16/2022 09:02:06 08/07/19 22 completed maribeth cabezas [place] - [facility] [place] 06/16/2022 09:02:06 ligation of bilateral fallopian tubes completed Maribteh [place] - [facility] - [place] & [place] 08/24/2023 10:05:29 procedure on ear completed Maribeth [place] - [facility] - [place] & [place] 08/24/2023 10:05:46 Colonoscopy completed Rayne [place] - [place] - [place] & [place] 09/17/2023 11:04:05 dental surgical procedure completed Rayne White [place] - [facility] - [place] & [place] 09/17/2023 11:04:15 Imaging Results None recorded. Procedure Notes None recorded. Medical Equipment None Reported. Allergies Allergen ID Allergen Name Allergen Category Reaction Reaction Severity Criticality Documentation Date Start Date Code Code System Note Provider Name and Address Organization Details Recorded Time 85303 Keflex medicatio n Not available Not available Not available 03/21/202254230 7 RxNorm Catherine Raghuse null, [place] - [facility] - [place] & [place] 2 09:59:05 82972 meloxicam medicatio n Not available Not available Not available 03/21/2022 97247 RxNorm Catherine Raghuse null, [place] - [place] - [place] & [place] 2 09:59:13 58194 lisinopri l medicatio n Not available Not available Not available 03/21/2022 96666 RxNorm Catherine Crase null, [place] - [facility] - [place] & [place] 2 09:59:22 Medications Name Sig Start Date Stop Date Status Note LastModified by Organization Details LastModified Time celecoxib 200 mg capsule TAKE 2 CAPSULES 1 TIME EACH DAY WITH FOOD 11/17 completed Not Available Not Available Not Available fluoxetine 40 mg capsule TAKE 1 CAPSULE 1 TIME EACH DAY active Not Available Not Available No t Available amoxicillin 500 mg capsule TAKE 1 CAPSULE 3 TIMES EACH DAY FOR 10 DAYS 07/22 completed Not Available Not Available Not Available atorvastati n 40 mg tablet TAKE 1 TABLET 1 TIME EACH DAY active Not Available Not Available No t Available metformin 500 mg tablet 08/23 completed Not Available Not Available Not Available terconazole 0.4 % vaginal cream INSERT 1 APPLICATO RFUL INTO THE VAGINA 1 TIME EACH DAY AT BEDTIME FOR 7 DAYS active Not Available Not Available No t Available promethazin e-DM 6.25 mg-15 mg/5 mL oral syrup TAKE 5 ML BY MOUTH EVERY 6 HOURS NEEDED FOR COUGH 08/23 completed Not Available Not Available Not Available BD Alcohol Swabs USE TO TEST BLOOD SUGAR 2 TIMES EACH DAY NEEDED active Not Available Not Available No t Available nystatin 100,000 unit/mL oral suspension SWISH 5 ML (1 TEASPOONF UL) FOR 5 TO 10 SECONDS, THEN SWALLOW, 4 TIMES EACH DAY FOR 10 DAYS. 11/08 completed Not Available Not Available Not Available acetaminoph en 325 mg tablet 04/11 completed Not Available Not Available Not Available carvedilol 6.25 mg tablet TAKE 1 TABLET 2 TIMES EACH DAY 11/17 completed Not Available Not Available Not Available prednisone 10 mg tablet TAKE 6 TABLETS BY MOUTH ON DAY 1, 5 ON DAY 2, 4 ON DAY 3, 3 ON DAY 4, 2 ON DAY 5 AND 1 ON DAY 6 01/24 completed Not Available Not Available Not Available gabapentin 600 mg tablet TAKE 1 TABLET 4 TIMES EACH DAY active Not Available Not Available No t Available doxycycline hyclate 100 mg capsule TAKE 1 CAPSULE 2 TIMES EACH DAY FOR 7 DAYS active Not Available Not Available No t Available carvedilol 12.5 mg tablet TAKE 1 TABLET 2 TIMES EACH DAY WITH FOOD active Not Available Not Available No t Available naproxen 375 mg tablet TAKE 1 TABLET EVERY 12 HOURS WITH FOOD OR MILK NEEDED active Not Available Not Available No t Available ipratropium 0.5 mg-albutero l 3 mg (2.5 mg base)/3 mL nebulizatio n soln INHALE CONTENTS OF 1 VIAL USING A NEBULIZER 4 TIMES EACH DAY active Not Available Not Available No t Available clindamycin HCl 300 mg capsule TAKE TWO CAPSULES EVERY 8 HOURS FOR 10 DAYS 03/25 completed Not Available Not Available Not Available cetirizine 10 mg tablet TAKE 1 TABLET 1 TIME EACH DAY active Not Available Not Available No t Available azithromyci n 250 mg tablet TAKE 2 TABLETS BY MOUTH ON DAY 1, AND THEN TAKE 1 TABLET BY MOUTH ONCE A DAY ON DAY 2 THROUGH DAY 5 (TAKE DIRECTED FOR 5 DAYS) TOO SOON TO REFILL LEVOFLOXA ASTON 10/05 completed Not Available Not Available Not Available fluconazole 150 mg tablet TAKE 1 TABLET 1 TIME EACH DAY FOR 5 DAYS active Not Available Not Available No t Available amiodarone 200 mg tablet TAKE 1 TABLET 1 TIME EACH DAY 02/07 completed Not Available Not Available Not Available benzonatate 200 mg capsule TAKE 1 CAPSULE 3 TIMES EACH DAY NEEDED FOR 15 DAYS active Not Available Not Available No t Available albuterol sulfate 1.25 mg/3 mL solution for nebulizatio n Inhale 3 mL 3 times a day by inhalatio n route. 02/07 completed Not Available Not Available Not Available ondansetron HCl 8 mg tablet TAKE 1 TABLET EVERY 8 HOURS NEEDED 11/17 completed Not Available Not Available Not Available FreeStyle Lancets 28 gauge USE TO TEST BLOOD SUGAR 3 TIMES EACH DAY 08/23 completed Not Available Not Available Not Available ondansetron HCl 4 mg tablet TAKE 1 TABLET EVERY 6 HOURS NEEDED 08/23 completed Not Available Not Available Not Available prednisone 20 mg tablet TAKE 1 TABLET 1 TIME EACH DAY FOR 5 DAYS 03/25 completed Not Available Not Available Not Available Accu-Chek Softclix Lancets USE TO TEST BLOOD SUGAR 3 TIMES EACH DAY active Not Available Not Available No t Available metronidazo le 500 mg tablet TAKE 1 TABLET BY MOUTH THREE TIMES DAILY FOR 5 DAYS 11/08 completed Not Available Not Available Not Available amlodipine 5 mg tablet TAKE 1 TABLET 1 TIME EACH DAY 11/16 completed Not Available Not Available Not Available ciprofloxac in 500 mg tablet TAKE 1 TABLET EVERY 12 HOURS FOR 10 DAYS 02/07 completed Not Available Not Available Not Available aspirin 81 mg tablet,rodney yed release TAKE 1 TABLET 1 TIME EACH DAY 11/16 completed Not Available Not Available Not Available triamterene 37.5 mg-hydrochl orothiazide 25 mg capsule 08/23 completed Not Available Not Available Not Available ondansetron 8 mg disintegrat ing tablet 2023 active Not Available Not Available Not Avai lable lidocaine-p rilocaine 2.5 %-2.5 % topical cream APPLY AT PORT SITE NEEDED 11/17 completed Not Available Not Available Not Available pantoprazol e 20 mg tablet,rodney yed release Take 1 tablet twice a day by oral route for 30 days. 08/23 completed Not Available Not Available Not Available ciclopirox 8 % topical solution APPLY OVER AFFECTED NAIL FOLD 1 TIME EACH DAY active Not Available Not Available No t Available oxycodone-a cetaminophe n 5 mg-325 mg tablet TAKE 1 TABLET EVERY 4 HOURS NEEDED FOR MODERATE PAIN 11/17 completed Not Available Not Available Not Available amoxicillin 875 mg tablet 06/30 completed Not Available Not Available Not Available benzonatate 100 mg capsule TAKE 1 CAPSULE BY MOUTH THREE TIMES DAILY NEEDED FOR COUGH 05/19 completed Not Available Not Available Not Available bisacodyl 10 mg rectal suppository INSERT 1 SUPPOSITO RY INTO THE RECTUM 1 HOUR BEFORE THE ARRIVAL TIME FOR THE PROCEDURE . 07/22 completed Not Available Not Available Not Available pantoprazol e 40 mg tablet,rodney yed release TAKE 1 TABLET 1 TIME EACH DAY active Not Available Not Available No t Available erythromyci n 5 mg/gram (0.5 %) eye ointment APPLY 1/4 INCH RIBBON INTO LOWER EYELID OF AFFECTED EYE(S) 4 TIMES EACH DAY FOR 7 DAYS 07/19 completed Not Available Not Available Not Available metformin 1,000 mg tablet TAKE 1 TABLET 2 TIMES EACH DAY WITH MEALS active Not Available Not Available No t Available dexamethaso ne 4 mg tablet TAKE 2 TABLETS 1 TIME EACH DAY ON DAYS 2, 3, AND 4 OF EACH CHEMOTHER APY CYCLE. 11/17 completed Not Available Not Available Not Available clotrimazol e-betametha sone 1 %-0.05 % topical cream APPLY A THIN FILM TO THE AFFECTED AREA OF SKIN 2 TIMES EACH DAY FOR 10 DAYS active Not Available Not Available No t Available Gentle Laxative (bisacodyl) 5 mg tablet,rodney yed release TAKE 2 TABLETS AT 2 PM ON 05/25/2022 AND AGAIN AT 2 PM ON 05/26/2022. 06/13 completed Not Available Not Available Not Available promethazin e 25 mg tablet TAKE 1 TABLET EVERY 12 HOURS NEEDED 11/17 completed Not Available Not Available Not Available nicotine 21 mg/24 hr daily transdermal patch APPLY 1 PATCH ONTO THE SKIN 1 TIME EACH DAY DIRECTED. REMOVE BEFORE APPLYING NEXT PATCH. 02/07 completed Not Available Not Available Not Available lidocaine HCl 2 % mucosal solution MIX WITH 1-1-1 RATIO WITH MAALOX AND BENADRYL FOR SORE SWALLOWIN G FROM RADIATION 11/17 completed Not Available Not Available Not Available triamterene 37.5 mg-hydrochl orothiazide 25 mg tablet TAKE 1 TABLET 1 TIME EACH DAY IN THE MORNING active Not Available Not Available No t Available omeprazole 20 mg capsule,del ayed release TAKE 1 CAPSULE 1 TIME EACH DAY active Not Available Not Available No t Available montelukast 10 mg tablet TAKE 1 TABLET 1 TIME EACH DAY active Not Available Not Available No t Available hydroxyzine HCl 25 mg tablet TAKE 1 TABLET 1 TIME EACH DAY NEEDED active Not Available Not Available No t Available codeine 10 mg-guaifene sin 100 mg/5 mL oral liquid TAKE 9.5 ML 1 TIME EACH DAY AT BEDTIME FOR COUGH 11/17 completed Not Available Not Available Not Available levofloxaci n 500 mg tablet TAKE 1 TABLET 1 TIME EACH DAY FOR 10 DAYS active Not Available Not Available No t Available estradiol 0.01% (0.1 mg/gram) vaginal cream Insert 1 gm intravagi ezra three times per week at bedtime 11/17 completed Not Available Not Available Not Available levofloxaci n 750 mg tablet TAKE ONE (1) TABLET (750 MG) BY ORAL ROUTE ONCE DAILY 03/25 completed Not Available Not Available Not Available methylpredn isolone 4 mg tablets in a dose pack TAKE BY MOUTH DIRECTED ON INSIDE OF PACKAGE 11/08 completed Not Available Not Available Not Available bromphenira mine-pseudo ephedrine-D M 2 mg-30 mg-10 mg/5 mL oral syrup TAKE 5 ML (1 TEASPOONF UL) EVERY 6 HOURS FOR 7 DAYS 03/25 completed Not Available Not Available Not Available ondansetron 4 mg disintegrat ing tablet 08/23 completed Not Available Not Available Not Available fluticasone propionate 50 mcg/actuati on nasal spray,suspe nsion SPRAY 1 TIME IN EACH NOSTRIL 1 TIME EACH DAY 03/24 completed Not Available Not Available Not Available metformin ER 500 mg tablet,exte nded release 24 hr TAKE 2 TABLETS 2 TIMES EACH DAY active Not Available Not Available No t Available doxycycline hyclate 100 mg tablet TAKE 1 TABLET 2 TIMES EACH DAY FOR 10 DAYS 03/23 completed Not Available Not Available Not Available diazepam 5 mg tablet TAKE 1 TABLET 30 MINUTES BEFORE PROCEDURE 11/17 completed Not Available Not Available Not Available amoxicillin 875 mg-potassiu m clavulanate 125 mg tablet TAKE 1 TABLET EVERY 12 HOURS FOR 7 DAYS 07/19 completed Not Available Not Available Not Available ceftriaxone 2 gram solution for injection 11/17 completed Not Available Not Available Not Available buspirone 15 mg tablet TAKE 1 TABLET 2 TIMES EACH DAY 03/24 completed Not Available Not Available Not Available Fiber-Lax 625 mg tablet TAKE 2 TABLETS 1 TIME EACH DAY NEEDED active Not Available Not Available No t Available Vitamin B-12 ER 1,000 mcg tablet,exte nded release TAKE 1 TABLET 1 TIME EACH DAY active Not Available Not Available No t Available Premarin 0.625 mg/gram vaginal cream INSERT 1/4 APPLICATO RFUL INTO THE VAGINA 2 TIMES EACH DAY 03/23 completed Not Available Not Available Not Available nitrofurant oin monohydrate /macrocryst als 100 mg capsule TAKE 1 CAPSULE 2 TIMES EACH DAY FOR 5 DAYS 11/08 completed Not Available Not Available Not Available Januvia 50 mg tablet TAKE 1 TABLET 1 TIME EACH DAY active Not Available Not Available No t Available calcium 600 mg (as carbonate)- vitamin D3 10 mcg (400 unit) tablet TAKE 1 TABLET 1 TIME EACH DAY WITH A MEAL active Not Available Not Available No t Available Symbicort 160 mcg-4.5 mcg/actuati on HFA aerosol inhaler INHALE 2 PUFFS 2 TIMES EACH DAY 2023 active Not Available Not Available Not Avai lable FreeStyle Lite Meter kit active Not Available Not Available Not Available FreeStyle Lite Strips USE TO TEST BLOOD SUGAR 3 TIMES EACH DAY AND NEEDED active Not Available Not Available No t Available Creon 12,000-38,0 00-60,000 unit capsule,del ayed release 03/24 completed Not Available Not Available Not Available ClearLax 17 gram/dose oral powder MIX 7 CAPFULS IN 16 OUNCES OF CLEAR/WHI TE GATORADE AND DRINK AT 12 PM ON 05/25/2022 AND AGAIN ON 05/26/2022. 07/22 completed Not Available Not Available Not Available Mucus Relief ER 600 mg tablet, extended release TAKE 1 TABLET EVERY 12 HOURS NEEDED 11/17 completed Not Available Not Available Not Available Xarelto 20 mg tablet TAKE 1 TABLET 1 TIME EACH DAY WITH FOOD active Not Available Not Available No t Available lidocaine 5 % topical ointment APPLY A THIN FILM TO THE AFFECTED AREA OF SKIN 3 TIMES EACH DAY NEEDED active Not Available Not Available No t Available Combivent Respimat 20 mcg-100 mcg/actuati on solution for inhalation INHALE 1 PUFF 4 TIMES EACH DAY NEEDED active Not Available Not Available No t Available Jardiance 10 mg tablet TAKE 1 TABLET 1 TIME EACH DAY 11/08 completed Not Available Not Available Not Available Jardiance 25 mg tablet TAKE 1 TABLET 1 TIME EACH DAY active Not Available Not Available No t Available Stiolto Respimat 2.5 mcg-2.5 mcg/actuati on solution for inhalation INHALE 2 PUFFS 1 TIME EACH DAY 11/17 completed Not Available Not Available Not Available Dexcom G6 Sensor device USE TO MEASURE BLOOD SUGAR DIRECTED. 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 8mcg/actuat ion HFA aerosol inhaler INHALE 2 PUFFS 2 TIMES EACH DAY active Not Available Not Available No t Available Flowflex COVID-19 Antigen Home Test kit USE DIRECTED 03/23 completed Not Available Not Available Not Available Lagevrio 200 mg capsule (EUA) TAKE 4 CAPSULES BY MOUTH EVERY 12 HOURS FOR 5 DAYS active Not Available Not Available No t Available Vitals Date Recorded Body height Body mass index (BMI) Body weight Body temperature Oxygen saturation Oxygen saturation in Arterial blood by Pulse oximetry Heart rate Systolic blood pressure Diastolic blood pressure Provider Name and Address Organization Details Last Updated DateTime 170.18 cm 39.8 kg/m2 396276. 46 g 97.4 [degF] 94 % 94 % 82 /min 130 mm[Hg] 80 mm[Hg] Mary Bush [facility] & [place] 15:42:45 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 Question Answer Notes LastModified by Organizat ion Details LastModified Time Tobacco Smoking Status Former Smoker quit [id number] Maribeth Larose [facility], [facility] & [place] 02/08/2024 09:22:44 Do You Have An Advance Directive? No [email or web address] Information not available 04/14/2022 What Is Your Level Of Alcohol Consumption? None Information not available 03/21/2022 Are You Blind Or Do You Have Difficulty Seeing? No Information not available 06/16/2022 What Is Your Level Of Caffeine Consumption? Occasional [email or web address] Information not available 08/24/2023 What Was The Date Of Your Most Recent Tobacco Screening? 08/24/2023 Information not available 08/24/2023 At What Age Did You Start Smoking Tobacco? 15 [email or web address] Information not available 02/08/2024 Are You Passively Exposed To Smoke? Yes [email or web address] Information not available 06/16/2022 Do You Or Have You Ever Used Smokeless Tobacco? Never Used Smokeless Tobacco [email or web address] Information not available 04/14/2022 How Much Tobacco Do You Smoke? 1 PPW [email or web address] Information not available 09/28/2023 Do You Feel Stressed (tense, Restless, Nervous, Or Anxious, Or Unable To Sleep At Night)? [id number] [email or web address] Information not available 04/14/2022 Do You Use Any Illicit Or Recreational Drugs? No Information not available 03/21/2022 Has Tobacco Cessation Counseling Been Provided? No [email or web address] Information not available 08/24/2023 How Many Years Have You Smoked Tobacco? 45 [email or web address] Information not available 06/16/2022 Do You Or Have You Ever Used Any Other Forms Of Tobacco Or Nicotine? No [email or web address] Information not available 08/24/2023 Sex: Unknown Functional Status Question Answer Note LastModified by Organization D etails LastModified Time What is your exercise level? None [email or web address] Information not available 06/16/2022 Mental Status None recorded. Family History Relationship Description Onset Age of this Age Resolved Age Notes LastModified by Organization Details LastModified Time Brother Suspected kidney cancer [email or web address] Not available 07/19 15:03:48 Mother Heart disease [email or web address] Not available 2023 09:28:41 Mother Renal failure syndrome [email or web address] Not available 07/19 15:03:48 Mother Diabetes mellitus [email or web address] Not available 07/19 15:03:48 Mother Mother [email or web address] Not available 07/19 15:03:48 Father Diabetes mellitus [email or web address] Not available 07/19 15:03:48 Father Heart disease Not available 2023 09:29:00 Father Father [email or web address] Not available 07/19 15:03:48 Medical History Condition Response Other Y Ear or Hearing Problems Y COPD Y Lung Disease Y GI Problems Y Diabetes Y Obesity Y Vision or Eye Problems Y Arthritis Y Cancer Y Reflux/GERD Y High Cholesterol Y Hypertension Y Gynecological History Statement/Question Response Abnormal Pap N Date of Last Pap Smear 12/02/2021 Current Control Method Tubal Ligat ion 08/06/2021 Sexually Active? Y Obstetrics History GPAL:G 0 P 0 0 0 0 Past Encounters Encounter ID Performer Location Encounter Start Date Encounter Closed Date Diagnosis/Indication Diagnosis SNOMED-CT Code Diagnosis ICD10 Code Diagnosis Note [id number] Denisha Quispe M.D [facility] - [address] [place] [address] SAMANTA VAZQUEZ [id number] 07/19/2024 15:01:50 07/19/2024 16:16:02 Dyspnea 567788185 R06.00 Nicotine dependence 5629 4008 Z87.891 Gastroesop hageal reflux disease without esophagitis 108096958 K21.9 Nodule of lung 000679485 R91.1 Small cell carcinoma of lung 809431507 C34.90 Health Concerns Section Related Observation LastModified by Organization Detai ls LastModified Time None Recorded Concern Status LastModified by Organization Details LastModified Time None Recorded Payers Encounter Date Sequence Insurance Name Policy Number Policy Hutson Covered Member ID Hutson Member ID Guarantor Name 07/19/2024 1 [facility] (MEDICAID REPLACEMENT - HMO) Teresa Rivera [id number] Teresara Rivera Notes Date Note Type Note Provider Name and Address Organization Details Recorded Time 07/19/2024 text/html Patient is a 63 year old female present today for a follow up visit. Patient states she is doing good. Patient states her last radiation was October 2023. Patient completed chemotherapy. Patient complains of cough with green sputum production. Patient is using Combivent Symbicort and Singulair. Patient complains she is getting tired easily. Patient complains of memory issues. Patient denies having any breathing issues at this time. Patient denies hospitalization for breathing issues. Denisha Quispe M.D [address] [place] [address], [address], [place], [address], [facility] - [place] & [place] 07/19/2024 17:02:42 OBGyn Episode No OBEpisode recorded.
== END 2024-08-22 19:22 | disposition home or self-care (01) ==
PROVIDERS: Emergency Provider Emergency Medicine
DX: M79.604 Pain in right leg (principal); M25.551 Pain in right hip; R25.2 Cramp and spasm; R51.9 Headache, unspecified; M54.50 Low back pain, unspecified; I10 Essential (primary) hypertension; E78.5 Hyperlipidemia, unspecified; J44.9 Chronic obstructive pulmonary disease, unspecified; Z85.118 Personal history of other malignant neoplasm of bronchus and lung
CPT/HCPCS: 72131; 80053; 81001; 84484; 85025; 86803; 87389; 99284; J8540

== ENCOUNTER 2024-11-15 13:34 | Emergency (ER) | payer MEDICAID, SELFPAY ==
--- OUTSIDE RECORDS SUMMARY | 2024-09-20 10:00 | XMS_ITS | Encounter Summary ---
Author Organization Healthcare Address [address] [place] [address] Care Team Providers Care Leaf Size Picker Name Role Phone Laurie Gutierrez MD Primary Care Provider [phone] Joshua Martínez MD Unavailable Reason for Visit * Reason Comments New Patient * Consultation (Routine) - Closed Specialty Diagnoses / Procedures Referred By Mackenzie carreon Referred To Contact Medical Oncology / Hematology and Oncology Diagnoses Brain mass Jim Nelson MD [address] [facility] [address] [facility] [address] [place] [address] Phone: tel: fax: [facility] [address] [facility], [address] [place] [address] Phone: tel: fax: Referral ID Status Reason Start Date Expiration Date V isits Requested Visits Authorized [id number] Closed Specialty Services Required 09/07/2024 03/09/2026 1 1 Encounter Details Date Type Department Care Team (Late st Contact Info) Description 09/20/2024 10:00 AM EDT Office Visit [facility] [address] [facility], [address]nd [place] [address] Satnam Colvin MD [address] [facility] [address] [facility] [address] [place] [address] SDH (subdural hematoma) (CMS/HCC) (Primary Dx); Brain mass; Extensive stage primary small cell carcinoma of lung; Type 2 diabetes mellitus without complication, without long-term current use of insulin; Primary hypertension; Encounter for antineoplastic chemotherapy 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 Tobacco Use Types Packs/Day Years Used Date Smoking Tobacco: Former Cigarettes 1.5 48.4 1 976 - 10/17/2023 Smokeless Tobacco: Never Alcohol Use Standard Drinks/Week Comments No 0 (1 standard drink = 0.6 oz pur e alcohol) Humiliation, Afraid, Rape, and Kick questionnair e Answer Date Recorded Within the last year, have y ou been afraid of your partner or ex-partner? No 09/06/2024 Within the last year, have y ou been humiliated or emotionally abused in other ways by your partner or ex-partner? No Within the last year, have y ou been kicked, hit, slapped, or otherwise physically hurt by your partner or ex-partner? No 09/06/2024 Within the last year, have y ou been raped or forced to have any kind of sexual activity by your partner or ex-partner? No 09/06/2024 PHQ-2 Answer Date Recorded Patient Health Questionnaire-2 Score 0 08/31/2024 Hunger Vital Sign Answer Date Recorded Within the past 12 months, y ou worried that your food would run out before you got the money to buy more. Never true 09/07/19 25 Within the past 12 months, t he food you bought just didn't last and you didn't have money to get more. Never true 09/06/2024 PRAPARE - Transportation Answer Date Re corded In the past 12 months, has l ack of transportation kept you from medical appointments or from getting medications? No 08/17 In the past 12 months, has l ack of transportation kept you from meetings, work, or from getting things needed for daily living? No 09/06/2024 Housing Stability Vital Sign Answer Gregor e Recorded In the last 12 months, was t here a time when you were not able to pay the mortgage or rent on time? No 11/20/2023 Number of Places Lived in the Last Year Not on f ile 11/20/2023 In the last 12 months, was t here a time when you did not have a steady place to sleep or slept in a prison (including now)? No 11/20/2023 PHQ-9 Answer Date Recorded Patient Health Questionnaire-9 Score 0 08/31/2024 Housing Stability Vital Sign Answer Gregor e Recorded In the last 12 months, was t here a time when you were not able to pay the mortgage or rent on time? No 09/06/2024 Number of Times Moved in the Last Year Not on fi le 09/06/2024 At any time in the past 12 m [facility], were you homeless or living in a prison (including now)? No 09/06/2024 CAGE ASSESSMENT Answer Date Recorded Cage unable to access Not on file 11/19/2023 Cage max number of drinks Not on file 2023 Cage Beverages a week Not on file 11/19/2023 Have you ever felt you should CUT down on your d rinking? 0 11/19/2023 Have you been ANNOYED by people criticizing your drinking? 0 11/19/2023 Have you felt GUILTY about your drinking? 0 11/19/2023 Have you had a drink first t laurie in the morning (EYE-SIGHTSEEING GUIDE) to steady your nerves or to get rid of a hangover? 0 11/19/2023 CAGE Questionnaire Score 0 024 Utilities Answer Date Recorded In the past 12 months has th e electric, gas, oil, or water company threatened to shut off services in your home? No 09/06/2024 Comments No Sex and Gender Information Value Date Recorded Sex Assigned at Not on file Legal Sex Female 8:32 PM EDT Gender Identity Not on file Sexual Orientation Not on file documented as of this encounter Last Filed Vital Signs Vital Sign Reading Time Taken Comments Blood Pressure 109/69 09/20/2024 9:58 AM EDT Pulse 69 09/20/2024 9:58 AM EDT Temperature 36.7 C (98.1 F) 09/20/2024 9:58 AM EDT Respiratory Rate 18 09/20/2024 9:58 AM EDT Oxygen Saturation 97% 09/20/2024 9:58 AM EDT Inhaled Oxygen Concentration - - Weight 118 kg (261 lb 0.4 oz) 09/20/2024 9:58 AM EDT Height 170.2 cm (5' 7 ) 09/20/2024 9:58 AM EDT Body Mass Index 40.88 09/20/2024 9:58 AM EDT documented in this encounter Miscellaneous Notes * Progress Notes - Satnam Colvin MD - 09/20/2024 10:00 AM EDT Medical Oncology Clinic Note Patient Name: Teresa Rivera Date of : 1960 63 y.o. Referring Physician:Jim Nelson MD [address] [facility] [address] [place] [address] Encounter Date: 09/20/2024 Chief Complaint: Chief Complaint Patient presents with New Patient History of present illness 63-year-old female with a past medical history of atrial flutter status post ablation, type 2 diabetes mellitus, chronic essential hypertension, chronic pain, depression and anxiety presents to the clinic for recurrent small-cell lung cancer. Her oncology history is noted below. Today she reports overall feeling better. She is trying to walk better with a right-sided weakness. Has home physical therapy. Current Treatment Regimen: Carbo etoposide with whole-brain radiation Oncology History: - initially diagnosed with [id number], stage IIIA limited stage of the right upper lobe. S/P chemoradiation: carbo/etop, RUL SBRT, no prophylatic WBRT -07/31/2023: Screening lung CT demonstrates 3.7 cm right upper lobe suprahilar mass and 1.7 cm rightparatracheal lymph node concerning for malignancy 08/11/2023: EBUS with biopsy of right paratracheal lymph node positive for small cell carcinoma 09/01/2023: PET/CT demonstrates hypermetabolism in mediastinum and faint area of right upper lobe 09/01/2023: MRI Brain negative for intracranial metastatic disease 09/08/2023 - 10/06/2023: Radiation to right upper lobe and mediastinum with carboplatin/etoposide 09/08/2023 - 11/13/2023: Carboplatin/etoposide x 4 cycles Previous Radiation History: 6000 cGy in 40 fractions delivered twice daily to the right upper lobe and mediastinal lymph nodes Start date: 09/08/2023 End date: 10/06/2023 - patient has been off tx since October 2023 - presented with 3 weeks of right-sided weakness on 08/31/2024. - CT head 2.9 x 3.2 x 3.2 cm the left paramedian superior frontal broad-based extra-axial hyperdense hemorrhage with surrounding vasogenic edema; posterior superior sagittal venous thrombosis noted; Left cerebral convexity subdural hemorrhage measuring up to 4 mm with no midline shift -CTV head large filling defect within the superior sagittal sinus in this region consistent with thrombus and/or tumor invasion causing near occlusion of the sinus -CT cervical and lumbar spine shows chronic degenerative changes with no acute fractures -[address] head was stable -09/01 CT CAP for cancer staging shows no metastatic disease - 09/05 s/p left frontal craniotomy - MRI of the head 09/04 with heterogeneous enhancing extra-axial mass in the left frontal vertex region-3.5 x 3.4 x 2.8 cm. - MRI of the head 09/05 with post surgical changes from subtotal resection of enhancing mass in the left posterior frontal lobe. Residual enhancing tumor along the deep medial margin. Smaller subduralhematoma along the left convexity. - Pathology of brain mass: Small-cell lung cancer - patient discharged on 09/09 with Keppra 500 mg twice daily and tapering dose of dexamethasone. Past Medical, Surgical, Family and 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: Medical History[1] Surgical History[2] Family History[3] 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[4] Allergies: Cephalexin, Lisinopril, and Meloxicam Medications: Current Medications[5] Review of Systems: A comprehensive 14 point review of systems was performed, noted to be negative with the pertinent positives documented in the HPI section of this note. Vital Signs: Visit Vitals BP 109/69 (BP Location: Left arm) Pulse 69 Temp 36.7 ??C (98.1 ??F) (Oral) Resp 18 Physical Examination: GENERAL: no acute distress. SKIN: . No rashes or lesions. EYES: conjunctiva clear, ENT: intact, no apparent injury HEAD/NECK: neck supple RESPIRATORY: non-labored respirations CARDIOVASCULAR: no peripheral edema GASTROINTESTINAL: soft, non-tender, non-distended, MUSCULOSKELETAL: No significant muscle wasting noted NEUROLOGICAL: alert and oriented x3, no focal deficits PSYCHOLOGICAL: Normal mood. Labs, Imaging, Pathology: Lab Results Component Value Date WBC 9.17 09/07/2024 RBC 3.87 (L) 09/07/2024 HGB 11.6 09/07/2024 HCT 36.8 09/07/2024 MCV 95 09/07/2024 MCV 93 08/25/2013 MCHC 31.5 09/07/2024 RDW 15.3 (H) 09/07/2024 PLT 168 09/07/2024 MPV 9.6 09/07/2024 EOS 3 08/25/2013 Lab Results Component Value Date BUN 21 09/07/2024 CL 100 09/07/2024 NA 135 (L) 09/07/2024 K 4.4 09/07/2024 CA 9.6 08/25/2013 TP 7.9 08/31/2024 AST 18 08/31/2024 ALT 17 08/31/2024 I visualized the recent imaging and discussed the current radiology findings with the patient in detail and gave copies of the reports to the patient and answered all questions. === 08/31/24 === CT CHEST W IV CONTRAST - Narrative - CLINICAL INDICATION: Cancer staging TECHNIQUE: Imaging of the chest abdomen and pelvis was performed, from thoracic inlet through pubic symphysis,using spiral technique, following administration of IV contrast, Omnipaque 300, [address] Chest and CT Abdomen/Pelvis protocol. Reformatted images in the coronal, sagittal, and oblique planes were generated from the axial data set to facilitate diagnostic accuracy. Total DLP (Dose-Length Product): 2596.33 mGy.cm. Please note: The reported value represents the total of one or more individual components during the CT acquisition on this date and at this time, andas such, the same value may appear in more than one CT report depending on the interpreting/reporting physicians. COMPARISON: None. FINDINGS: Chest: Aorta/Vessels: The thoracic aorta is unremarkable. No large central filling defect within the pulmonary arteries to suggest pulmonary embolism. Multivessel coronary artery calcifications. Pleural/Pericardial Space: No pneumothorax. No pleural effusions. No pericardial effusion. Lymph Nodes: No lymphadenopathy within the chest. Lungs: There is scarring within the posterior right upper lobe. Mild bilateral dependent atelectasis. No consolidation. No suspicious pulmonary nodules. Mediastinum: Otherwise unremarkable. Chest Wall: No chest wall hematoma or contusion. Bones: No acute fracture within the chest. Abdomen: Liver/Gallbladder/Biliary System: The liver demonstrates homogeneous enhancement. Normal Gallbladder. No intra- or extra-hepatic biliary ductal dilatation. Spleen: The spleen enhances homogeneously. Pancreas: The pancreas enhances homogeneously. Adrenals: The adrenals are morphologically unremarkable. Kidneys: Multiple bilateral renal cysts. A few right upper pole renal cysts demonstrate thin peripheral calcification. No renal or ureteral calculi. No hydronephrosis. Bowel/Mesentery: The small bowel loops are not dilated. The large bowel loops are not dilated. Diverticulosis without evidence of acute diverticulitis. The appendix is visualized and normal. Vessels/Lymph Nodes: Calcified atherosclerosis of normal caliber abdominal aorta. No lymphadenopathy within the abdomen or pelvis. Fluid Survey: No free fluid in the abdomen. No free fluid in the pelvis. Pelvis: The pelvic viscera are unremarkable. Body Wall: Normal. Bones: No acute fracture within the abdomen or pelvis. Degenerative changes of the spine. - Impression - 1. No acute findings in the chest. 2. No acute findings in the abdomen or pelvis. 3. No evidence of metastatic disease within the chest, abdomen or pelvis. CRITICAL RESULT: No. COMMUNICATION: Per this written report. Preliminary report signed by Rhea Oropeza DO on 09/01/2024 2:31 AM By electronically signing this report, I, the attending physician, attest that I have personally reviewed the images/data for the above examination(s) and agree with the final edited report. Drafted by Rhea Oropeza DO on 09/01/2024 2:21 AM Final report signed by Manjit Uriostegui MD on 09/01/2024 2:56 AM === 08/31/24 === MR HEAD W AND WO IV CONTRAST - Narrative - CLINICAL INDICATION: Craniotomy, post-op TECHNIQUE: Multiplanar multiecho sequences were performed through the brain utilizing T1 and T2 weighting, as well as either axial susceptibility weighted or gradient echo sequences, and axial diffusion weighted images. A coronal post-contrast 1mm thick T1-weighted 3D MPRAGE sequence was performed and multiplanar reformatted images were created. Imaging was performed with and without contrast administration: 11.3 mL of Gadavist. COMPARISON: Brain MRI 09/04/2024 and 09/01/[address] 09/01/2024 FINDINGS: Diagnostic Quality: Adequate. Postsurgical subtotal resection of the enhancing mass situated in the left posterior frontal lobe, spanning into the precentral gyrus. Mild pneumocephalus. Mild residual enhancing tumor along the deep medial margin. Susceptibility artifact may represent combination of blood products and calcification. Stable residual hematoma along the inferior-medial margin of the surgical bed. No acute infarct is appreciated. Subdural hematoma along left convexity is less T1 hyperintense and is minimally smaller from 5 mm to 4 mm in thickness. No midline shift or obstructive hydrocephalus. Basal cisterns are patent. Vascular Flow Voids: Normal. Paranasal Sinuses and Mastoid Air Cells: Moderate mucosal thickening in the left sphenoid sinus. Mastoids are clear. Orbits: No definite masses within the limitations of the study. Extracranial Findings: Left high craniotomy with scalp alejandro. Craniocervical Junction and Skull Base: No tonsillar ectopia or mass is present. - Impression - 1. Postsurgical changes from subtotal resection of enhancing mass in the left posterior frontal lobe. Residual enhancing tumor along the deep medial margin. Stable hematoma along the inferior-medial margin of the surgical bed. 2. Smaller subdural hematoma along the left convexity. CRITICAL RESULT: No. COMMUNICATION: Per this written report. Drafted by Phillip Lopes MD on 09/05/2024 8:12 PM Final report signed by Phillip Lopes MD on 09/05/2024 8:23 PM Performance Status: ECOG 1 Assessment and Plan: Teresa Rivera is a 63 y.o. female with PMH of atrial flutter status post ablation, type 2 diabetesmellitus, chronic essential hypertension, chronic pain, depression and anxiety with recurrent small-cell cancer of the lung. # Extensive stage small-cell lung cancer Cancer Staging No matching staging information was found for the patient. Cancer management : Teresa Rivera is diagnosed with extensive stage small-cell lung cancer. Previously with limited stage and treated with concurrent chemoradiation and no prophylactic cranial irradiation. Now metastasis in the brain with subtotal resection. No evidence of disease in the chest and abdomen. PET scan is pending. This represents a life threatening illness for which urgent cancer treatment is indicated. - Treatment goal- palliative - Next Gen Sequencing: Not indicated - Regimen: Carbo etoposide with whole-brain radiation - I reviewed liver and renal function as well as bone marrow function in relationship to this patient's ability to tolerate systemic cancer treatment (and adjusted dosing and schedule based on their individual liver, renal and bone marrow function). I have personally calculated and ordered chemotherapy. - I have ordered chemotherapy, referral to Radiation Oncology - RTC day 1 of chemotherapy. # Chemotherapy toxicity -no treatment yet. Previously tolerated fairly well. # Medical comorbidities Diabetes mellitus type 2-was on Januvia, Jardiance and metformin. Insulin in the hospital. Plan to continue home medications Atrial flutter status post ablation on dual antiplatelets. Held until neurosurgery follow-up. Chronic essential hypertension-continue Coreg Chronic pain-continue gabapentin COPD-continue home inhalers. Not oxygen dependent. Depression and anxiety-continue home fluoxetine and hydroxyzine as needed. I updated the plan of care. This treatment will require ongoing monitoring of toxicity by me, due to the risks of severe side effects from the therapy listed above. The selection, dosing and administration of anti-cancer agents and the management of associated toxicities requires complex medical decision making. Modifications of drug dose and schedule as well as the initiation of supportive care interventions are often necessary because of expected toxicities. This varies individually based on patient tolerability, prior treatments and comorbidities. The optimal delivery of anticancer agents requires a healthcare delivery team experienced in the use of anticancer agents and the management of associated toxicities in patients with cancer. MD GIGI Man [facility] [address] [facility] [address] [facility]. [1] Past Medical History: Diagnosis Date Brain tumor (CMS/HCC) Personal history of other diseases of the circulatory system History of essential hypertension Personal history of other diseases of the musculoskeletal system and connective tissue History of osteoarthritis Personal history of other endocrine, nutritional and metabolic disease History of type 2 diabetes mellitus [2] Past Surgical History: Procedure Laterality Date BRAIN SURGERY TUBAL LIGATION N/A Tubal Ligation from [employer] TYMPANOSTOMY TUBE PLACEMENT N/A Ear Surgery Eustachian Tube from [employer] [3] Family History Problem Relation Name Age of Onset No Known Problems Mother No Known Problems Father Diabetes Other Fibromyalgia Other [4] 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 Tobacco Use Smoking status: Former Current packs/day: 0.00 Average packs/day: 1.5 packs/day for 48.4 years (72.6 ttl pk-yrs) Types: Cigarettes Start date: 1975 Quit date: 10/17/2023 Years since quittin.9 Smokeless tobacco: Never Vaping Use Vaping status: Never Used Substance Use Topics Alcohol use: No Drug use: Never [5] Current Outpatient Medications: Accu-Chek Softclix Lancets lancets, USE TO TEST BLOOD SUGAR 3 TIMES EACH DAY, Disp: , Rfl: Alcohol Swabs (Easy Touch Alcohol Prep Medium) 70 % pads, , Disp: , Rfl: atorvastatin (Lipitor) 40 MG tablet, Take 1 tablet by mouth daily., Disp: , Rfl: B-D UF III MINI PEN NEEDLES 31G X 5 MM [facility] [place], , Disp: , Rfl: benzonatate (Tessalon) 100 MG capsule, Take 1 capsule by mouth 3 (three) times a day as needed for cough., Disp: , Rfl: Blood Glucose Monitoring Suppl ([employer] Verio Flex System) w/Device kit, , Disp: , Rfl: Slkddps-Ngcbqkstflt-Qeghntstjm (Breztri Aerosphere) 160-9-4.8 MCG/ACT aerosol, Inhale 2 puffs 2 (two) times a day., Disp: , Rfl: Calcium Carb-Cholecalciferol 600-10 MG-MCG tablet, Take 600 mg by mouth daily., Disp: , Rfl: carvedilol (Coreg) 12.5 MG tablet, Take 1 tablet by mouth 2 (two) times a day with meals., Disp: , Rfl: cetirizine (ZyrTEC) 10 MG tablet, Take 1 tablet by mouth daily., Disp: , Rfl: ciclopirox (Penlac) 8 % solution, Apply over affected nail fold daily., Disp: , Rfl: Continuous Glucose Sensor (Dexcom G6 Sensor) [facility] [place], USE DIRECTED TO MEASURE BLOOD SUGAR. REPLACE SENSOR EVERY 10 DAYS, Disp: , Rfl: dexamethasone (Decadron) 2 MG tablet, Take 2 tablets by mouth every 8 hours for 4 days, THEN 2 tablets every 12 hours for 4 days, THEN 1 tablet every 12 hours., Disp: , Rfl: empagliflozin (Jardiance) 25 MG, Take 1 tablet by mouth daily., Disp: , Rfl: ferrous sulfate 325 (65 Fe) MG tablet, Take 1 tablet by mouth Daily., Disp: , Rfl: FLUoxetine (PROzac) 40 MG capsule, Take 1 capsule by mouth daily., Disp: , Rfl: FREESTYLE LITE test strip, USE TO TEST BLOOD SUGAR 3 TIMES EACH DAY AND NEEDED, Disp: , Rfl: gabapentin (Neurontin) 600 MG tablet, Take 1 tablet by mouth 4 (four) times a day., Disp: , Rfl: hydrOXYzine HCl (Atarax) 25 MG tablet, Take 1 tablet by mouth daily as needed., Disp: , Rfl: insulin glargine-yfgn 100 UNIT/ML injection vial, Inject 45 Units under the skin nightly. Can be adjusted per the MD at [facility], Disp: , Rfl: Insulin Lispro (Admelog, HumaLOG) 100 UNIT/ML injection vial, Inject 15 Units under the skin 3 times a day with meals. Can be adjusted per the MD at [facility], Disp: , Rfl: Lantus SoloStar 100 UNIT/ML injection pen, , Disp: , Rfl: levETIRAcetam (Keppra) 500 MG tablet, Take 1 tablet by mouth 2 times a day., Disp: , Rfl: melatonin tablet, , Disp: , Rfl: metFORMIN (Glucophage) 1000 MG tablet, Take 1 tablet by mouth 2 (two) times a day with meals., Disp: , Rfl: montelukast (Singulair) 10 MG tablet, Take 1 tablet by mouth nightly., Disp: , Rfl: ondansetron (Zofran) 8 MG tablet, Take 1 tablet by mouth every 8 hours as needed for nausea or vomiting., Disp: , Rfl: ondansetron ODT (Zofran-ODT) 4 MG disintegrating tablet, , Disp: , Rfl: senna (Senokot) 8.6 MG tablet, Take 2 tablets by mouth nightly., Disp: , Rfl: SITagliptin (Januvia) 50 MG tablet, Take 1 tablet by mouth daily., Disp: , Rfl: tiZANidine (Zanaflex) 2 MG tablet, Take 1 tablet by mouth nightly., Disp: , Rfl: triamterene-hydrochlorothiazide (Maxzide-25) 37.5-25 MG tablet, Take 1 tablet by mouth every morning., Disp: , Rfl: Vitamin B-12 ER 1000 MCG tablet controlled-release, Take 1 tablet by mouth Daily., Disp: , Rfl: Xarelto 20 MG tablet, Take 1 tablet by mouth every evening., Disp: , Rfl: insulin lispro (Admelog, HumaLOG) 100 UNIT/ML injection pen, , Disp: , Rfl: pantoprazole (Protonix) 40 MG EC tablet, Take 1 tablet by mouth daily. Do not crush, chew, or split. (Patient not taking: Reported on 09/20/2024), Disp: , Rfl: polyethylene glycol (Miralax) 17 g packet, Take 17 g by mouth daily. (Patient not taking: Reported on 09/20/2024), Disp: , Rfl: * Progress Notes - Rupa De Santiago PharmD - 09/20/2024 10:00 AM EDT Pharmacy Hematology/Oncology Patient Education Note I counseled the patient on their chemotherapy regimen, which was scheduled to start 10/04/24. The chemotherapy agents that this patient is scheduled to receive include: carboplatin/etoposide/atezolizumab. I provided the patient with a written explanation of the drugs contained in the regimen and their expected side effects, toxicities, and adverse reactions, such as but not limited to myelosuppression, alopecia, rash, diarrhea, pneumonitis, hepatitis, nephritis, fatigue and nausea/vomiting. I provided verbal explanation of the same material and provided methods for self-monitoring. I answered all questions that the patient and/or caregiver had. The patient and/or caregiver demonstrated unders tanding of the material, and wished to proceed with the treatment. Rupa De Santiago PharmD, [facility] Clinical Oncology Pharmacist documented in this encounter Plan of Treatment Upcoming Encounters Date Type Department Care Team (Late st Contact Info) Description 11/29/2024 10:30 AM EDT Clinical Support [facility] [address] [facility], [address] [place] [address] 11/29/2024 11:00 AM EDT Office Visit [facility] [address] [facility], [address] [place] [address] Satnam Colvin MD [address] [facility] [address] [place] [address] 11/29/2024 12:30 PM EDT Appointment [facility] [address] [place] [phone] 11/30/2024 1:30 PM EDT Appointment [facility] [address] [place] [address] 12/01/2024 2:00 PM EDT Appointment [facility] [address] [place] [address] 12/06/2024 11:40 AM EDT Appointment [facility] [address] [facility]. [id number] [place] [address] Haven Blum, TIP CEMENTER [address] [facility] [id number] [place] [id number] 01/19/2025 9:30 AM EDT Appointment [facility] [address]st [place] [address] 01/19/2025 10:45 AM EDT Office Visit [place] [facility] [address], [address] [place] [address] Abhilash Bangura MD [address] [place] [address] 03/08/2025 1:00 PM EDT Office Visit [facility] [place] [facility] [address] [place] [id number] Teresita Oconnell MD [address] [place] [address] documented as of this encounter Visit Diagnoses Diagnosis SDH (subdural hematoma) (CMS/HCC)- Primary Subdural hemorrhage Brain mass Unspecified condition of brain Extensive stage primary small cell carcinoma of lung Type 2 diabetes mellitus without complication, without long-term current use of insulin Primary hypertension Unspecified essential hypertension Encounter for antineoplastic chemotherapy documented in this encounter Additional Health Concerns Assessment Noted Time PHQ-9 Depression Total Score: 0 09/01/19 3:26 PM EDT A fall risk assessment has been complete d for the patient 09/20/2024 9:53 AM EDT A Body Mass Index follow-up plan has been documented for the patient 09/09/2024 12:20 PM EDT documented as of this encounter Care Teams Leaf Size Picker Relationship Specialty Start Date End Date Laurie Gutierrez MD [address] [place] [address] PCP - General 12/09/23 Joshua Martínez MD [address] [place] [phone] Consulting Physician Radiation Oncology 09/19/24 documented as of this encounter
--- OUTSIDE RECORDS SUMMARY | 2024-09-22 14:45 | XMS_ITS | Encounter Summary ---
Author Organization Healthcare Address [address] 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 No 11/20/2023 PHQ-9 Answer Date [...] any time in the past 12 m [facility], were you homeless or living in a long-term (including now)? No 09/06/2024 CAGE ASSESSMENT Answer [...] drink first t laurie in the morning (EYE-VOLUNTEER SERVICES MANAGER) to steady your nerves or to get rid of a hangover? 0 11/19/2023 CAGE Questionnaire Score 0 024 Utilities Answer Date Recorded In the past 12 months has th [employer] electric, gas, oil, or water company threatened [...] Sign Reading Time Taken Comments Blood Pressure 126/78 09/22/2024 2:45 PM EDT Pulse - - Temperature - - Respiratory Rate - - Oxygen Saturation - - Inhaled Oxygen Concentration - - Weight 118 kg (261 lb) 09/22/2024 2:45 PM EDT Height 170.2 cm (5' 7 ) 09/22/2024 2:45 PM EDT Body Mass Index 40.88 09/22/2024 2:45 PM EDT documented in this encounter Miscellaneous Notes * Progress Notes - Angelita Steen MD - 09/22/2024 2:45 PM EDT We had the pleasure of seeing your patient in our clinic today for Neurosurgical post-op visit. Chief Complaint: Post op History Of Present Illness Teresa Rivera is a 63 y.o. female who presents to neurosurgical clinic today for follow-up for status post Craniotomy, For Intracranial Neoplasm Excision - Left on 09/05/2024. Pathology report is consistent with small cell cancer. Preoperatively, progressive RLE weakness, numbness, and gait instability. PMHx: HTN, DM2, COPD, Stage III small cell lung (dX july/2023) CA, and paroxysmal Afib (s/p CTI ablation, on NOAC). At today's visit, patient is feeling well in her strength on the right arm and leg is improving. She could breakfast for herself this morning in his able take care of her basic day-to-day activities with some help.. Patient denies bowel or bladder issues. Patient denies any signs or symptoms of infection. Patient denies any new weakness or falls since surgery. Patient denies any new or worsening symptoms since surgery. Denies Headaches, N&V, weakness, tingling, or numbness, or vision changes. No Hx of seizures. Patient is overall doing well. Incision is clean, dry, and intact. Incision iswithout redness, ecchymosis, edema, and drainage and edges are approximated. Medical History[1] Surgical History[2] Family History[3] 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[4] Current Outpatient Medications Medication Instructions Accu-Chek Softclix Lancets lancets USE TO TEST BLOOD SUGAR 3 TIMES EACH DAY Alcohol Swabs (Easy Touch Alcohol Prep Medium) 70 % pads atorvastatin (LIPITOR) 40 mg, Daily B-D UF III MINI PEN NEEDLES 31G X 5 MM misc benzonatate (TESSALON) 100 mg, 3 times daily PRN Blood Glucose Monitoring Suppl ([employer] Verio Flex System) w/Device kit Gicmwgf-Bwvikfrdfmz-Nvqhfwabfl (Breztri Aerosphere) 160-9-4.8 MCG/ACT aerosol 2 puffs, 2 times daily Calcium Carb-Cholecalciferol 600-10 MG-MCG tablet 600 mg, Daily carvedilol (COREG) 12.5 mg, 2 times daily with meals cetirizine (ZYRTEC) 10 mg, Daily ciclopirox (Penlac) 8 % solution Apply over affected nail fold daily. Continuous Glucose Sensor (Dexcom G6 Sensor) [facility] USE DIRECTED TO MEASURE BLOOD SUGAR. REPLACE SENSOR EVERY 10 DAYS dexamethasone (Decadron) 2 MG tablet Take 2 tablets by mouth every 8 hours for 4 days, THEN 2 tablets every 12 hours for 4 days, THEN 1 tablet every 12 hours. empagliflozin (JARDIANCE) 25 mg, Daily ferrous sulfate 325 (65 Fe) MG tablet 1 tablet, Daily FLUoxetine (PROZAC) 40 mg, Daily FREESTYLE LITE test strip USE TO TEST BLOOD SUGAR 3 TIMES EACH DAY AND NEEDED gabapentin (NEURONTIN) 600 mg, 4 times daily hydrOXYzine HCl (ATARAX) 25 mg, Daily PRN insulin glargine-yfgn 45 Units, Subcutaneous, Nightly, Can be adjusted per the MD at [facility] insulin lispro (Admelog, HumaLOG) 100 UNIT/ML injection pen Insulin Lispro (ADMELOG, HUMALOG) 15 Units, Subcutaneous, 3 times daily with meals, Can be adjustedper the MD at [facility] Pop TrimbleoStar 100 UNIT/ML injection pen levETIRAcetam (KEPPRA) 500 mg, Oral, 2 times daily melatonin tablet metFORMIN (GLUCOPHAGE) 1,000 mg, 2 times daily with meals montelukast (Singulair) 10 MG tablet Take 1 tablet by mouth nightly. ondansetron (ZOFRAN) 8 mg, Every 8 hours PRN ondansetron ODT (Zofran-ODT) 4 MG disintegrating tablet pantoprazole (PROTONIX) 40 mg, Daily polyethylene glycol (MIRALAX) 17 g, Oral, Daily rOPINIRole (Requip) 1 MG tablet TAKE 1 TABLET 2 TIMES EACH DAY senna (SENOKOT) 17.2 mg, Oral, Nightly SITagliptin (JANUVIA) 50 mg, Daily tiZANidine (ZANAFLEX) 2 mg, Nightly triamterene-hydrochlorothiazide (Maxzide-25) 37.5-25 MG tablet Take 1 tablet by mouth every morning. Vitamin B-12 ER 1000 MCG tablet controlled-release 1 tablet, Daily Xarelto 20 mg, Every evening Visit Vitals Ht 1.702 m (5' 7 ) Wt 118 kg (261 lb) BMI 40.88 kg/m?? OB Status Postmenopausal Smoking Status Former BSA 2.36 m?? Neurological Exam Awake, alert, orientedx3 Follows commands appropriately Speech clear PERRL, EOMI CN 2-12 grossly intact No drift Strength 5/5 throughout Sensation intact throughout Imaging No imaging was obtained for this visit. Assessment and Plan Teresa Rivera is a 63 y.o. female with history of small-cell lung cancer who underwent Craniotomy,For Intracranial Neoplasm Excision - Left on 09/05/2024. Postoperatively, we are pleased patient's progress. Patient was presented with follow up and knows to call our office with any future concerns or questions. He is to follow-up with Dr. Bangura in 4 months with [place] were removed with no issues in the wound was cleaned thoroughly. Patient is currently on dexamethasone which will be down dosed to 2 g once a day through radiation therapy. She is also going to resume her Xarelto in his cleared to start further systemic treatment including chemo and radiation therapy. Repeat MRI brain +/- contrast. The patient was given the follow-up information and knows to call the clinic with any questions or concerns. Angelita Steen MD PGY-2, Neurosurgery [1] Past Medical History: Diagnosis Date Brain [...] SURGERY TUBAL LIGATION N/A Tubal Ligation from [employer] TYMPANOSTOMY TUBE PLACEMENT N/A Ear Surgery Eustachian Tube from [employer] [3] Family History Problem Relation Name Age [...] Topics Alcohol use: No Drug use: Never Cosigned by Abhilash Bangura MD at 09/22/2024 3:07 PM EDT Associated attestation - Abhilash Bangura MD - 09/22/2024 3:07 PM EDT I saw and evaluated the patient with the resident/fellow. I discussed the case with the resident/fellow and agree with the findings and plan as documented. documented in this encounter Plan of Treatment Upcoming Encounters Date Type Department Care Team ([facility] st Contact Info) Description 11/29/2024 10:30 AM EDT Clinical Support [facility] [address] [facility] 2nd [place] [address] 11/29/2024 11:00 AM EDT Office Visit [facility] [address] [facility], 2nd [place] [address] Satnam Colvin MD [address] [facility] [address] [place] [address] 11/29/2024 12:30 PM EDT Appointment [facility] [address] [place] [phone] 11/30/2024 1:30 PM EDT Appointment [facility] [address] [place] [address] 12/01/2024 2:00 PM EDT Appointment [facility] [address] [place] [phone] 12/06/2024 11:40 AM EDT Appointment [facility] [address] [id number] [place] [address] Haven Blum, DELICATESSEN DEPARTMENT MANAGER [address] [facility] [id number] [place] [address] 01/19/2025 9:30 AM EDT Appointment [facility] [address]st [place] [address] 01/19/2025 10:45 AM EDT Office Visit [place] [facility] [address], [address] [place] [address] Abhilash Bangura MD [address] [place] [address] 03/08/2025 1:00 PM EDT Office Visit [facility] [place] [address] 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 documented in this encounter Additional Health Concerns Assessment Noted Time PHQ-9 Depression Total Score: 0 09/01/19 25 3:26 PM EDT A fall risk assessment has been complete d for the patient 09/22/2024 2:51 PM EDT A Body Mass Index follow-up plan has been documented for the patient 09/22/2024 3:08 PM EDT documented as of this encounter Care Teams Carburetor Rebuilder Relationship Specialty Start Date End Date Laurie Gutierrez MD [address] [place], [place] [id number] PCP - General 12/09/23 Joshua Martínez MD [address] [place], [place] [id number] [place] [address] Consulting Physician Radiation Oncology 09/19/24 documented as of this encounter
--- OUTSIDE RECORDS SUMMARY | 2024-09-26 12:55 | XMS_ITS | Encounter Summary ---
Author Organization [facility] Address [address] [place] [address] Care Team Providers Care Mold Unloader Name Role Phone Laurie Gutierrez MD Primary Care Provider [phone] Joshua Martínez MD Unavailable Reason for Referral * Radiation Therapy (Routine) - Authorized Specialty Diagnoses / Procedures Referred By Contac t Referred To Contact Radiation Oncology Diagnoses 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CMS/HCC) Procedures Rad Onc Intent to Treat Joshua Martínez MD [address] [address] Phone: tel: fax: [facility] [address] [place] [address] Phone: tel: fax: Referral ID Status Reason Start Date Expiration Date Visits Requested Visits Authorized [id number] Authorized Perform Procedure 09/30/2024 01/15/2025 10 10 * Consultation (Routine) - Closed Specialty Diagnoses / Procedures Referred By Contac t Referred To Contact Radiation Oncology Diagnoses Brain mass Litzy Dacosta, [address] [place] [address] Phone: tel: fax: [facility] [address] [place] [address] Phone: tel: fax: Referral ID Status Reason Start Date Expiration Date V isits Requested Visits Authorized [id number] Closed Specialty Services Required 09/06/2024 03/08/2026 1 1 Scheduling Instructions SCLC with brain mets s/p crani Reason for Visit * Reason Comments Follow-up * Consultation (Routine) - Closed Specialty Diagnoses / Procedures Referred By Contnida carreon Referred To Contact Radiation Oncology Diagnoses Brain mass Litzy Dacosta DO [address] [place] [address] Phone: tel: fax: [facility] [id number] [place] [address] Phone: tel: fax: Referral ID Status Reason Start Date Expiration Date V isits Requested Visits Authorized [id number] Closed Specialty Services Required 09/06/2024 03/08/2026 1 1 Encounter Details Date Type Department Care Team (Latest Contact Info) Description 09/26/2024 12:55 PM EDT - 09/26/2024 3:59 PM EDT Hospital Encounter [facility] 800 [facility] [place] [address] Joshua Martínez MD 800 [facility] [address] [place] [phone] 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CMS/HCC) (Primary Dx); Brain [...] place to sleep or slept in a nursing home (including now)? No 11/20/2023 PHQ-9 Answer [...] time in the past [address] [facility], were you homeless or living in a nursing home (including now)? No 09/06/2024 CAGE ASSESSMENT [...] drink first t laurie in the morning (EYE-NETWORK SUPPORT ENGINEER) to steady your nerves or to get rid of a hangover? 0 11/19/2023 CAGE Questionnaire Score 0 024 Utilities Answer Date Recorded In the past 12 months has th e [employer], gas, oil, or water [employer] threatened to shut off services in your [...] tablet Take 1 tablet by mouth daily. Budeson-Glycopyrrol- Formoterol (Breztri Aerosphere) 160-9-4.8 MCG/ACT aerosol Inhale 2 puffs 2 (two) times a day. Calcium Carb-Cholecalciferol 600-10 MG-MCG tablet Take 1 tablet by mouth daily. cetirizine (ZyrTEC) 10 MG tablet Take 1 tablet by mouth daily. empagliflozin (Jardiance) 25 MG Take 1 tablet by mouth daily. FLUoxetine [...] tablet Take 1 tablet by mouth nightly. triamterene-hydrochl orothiazide (Maxzide-25) 37.5-25 MG tablet Take 1 tablet by mouth every morning. Vitamin B-12 ER 1000 MCG tablet controlled-release Take 1 tablet by mouth Daily. Xarelto 20 MG tablet Take 1 tablet by mouth every evening. ferrous sulfate 325 (65 Fe) MG tablet Take 1 tablet by mouth Daily. 08/23/2024 5 Accu-Chek Softclix Lancets lancets USE TO TEST BLOOD SUGAR 3 TIMES EACH DAY 09/01/2024 5 Alcohol Swabs (Easy Touch Alcohol Prep Medium) 70 % pads 09/19/2024 02 5 B-D UF III MINI PEN NEEDLES 31G X 5 MM [facility] 09/19/2024 5 benzonatate (Tessalon) 200 MG capsule Take 1 capsule by mouth 3 times a day as needed for cough. 5 Blood Glucose Monitoring Suppl ([employer] Verio Flex System) w/Device kit 09/19/202410/16 5 carvedilol (Coreg) 12.5 MG tablet Take 1 tablet by mouth 2 times a day with meals. 5 ciclopirox (Penlac) 8 % solution Apply over affected nail fold daily. 5 Continuous Glucose Sensor (Dexcom G6 Sensor) [facility] USE DIRECTED TO MEASURE BLOOD SUGAR. REPLACE SENSOR EVERY 10 DAYS 09/01/2024 5 dexamethasone (Decadron) 2 MG tablet Take 2 tablets by mouth every 8 hours for 4 days, THEN 2 tablets every 12 hours for 4 days, THEN 1 tablet every 12 hours. 09/09/2024 5 FREESTYLE LITE test strip USE TO TEST BLOOD SUGAR 3 TIMES EACH DAY AND NEEDED 09/01/2024 gabapentin (Neurontin) 600 MG tablet Take 1 tablet by mouth 4 times a day. 5 insulin glargine-yfgn 100 UNIT/ML injection vial Inject 45 Units under the skin nightly. Can be adjusted per the MD at [facility] 09/09/2024 5 insulin lispro (Admelog, HumaLOG) 100 UNIT/ML injection pen 09/19/2024 Insulin Lispro (Admelog, HumaLOG) 100 UNIT/ML injection vial Inject 15 Units under the skin 3 times a day with meals. Can be adjusted per the MD at [facility] 09/09/2024 5 Lantus SoloStar 100 UNIT/ML [...] 2 tablets by mouth nightly. 09/09/2024 5 documented as of this encounter Miscellaneous [...] over the preceding 5-6 months, prompting evaluationby blasting coal miner Dr. Quispe. Given her significant smoking history, [...] rather than PCI. She presented to the [facility] on 08/31/2024 with new-onset right lower [...] Social Connections: Low Risk (05/26/2023) Received from [facility] Family and Community Support Help with Day [...] SURGERY TUBAL LIGATION N/A Tubal Ligation from [facility] TYMPANOSTOMY TUBE PLACEMENT N/A Ear Surgery Eustachian Tube from [facility] [3] Family History Problem Relation Name Age [...] MINI PEN NEEDLES 31G X 5 MM [facility] Blood Glucose Monitoring Suppl ([employer] Verio Flex System) w/Device kit [employer]-Wtxnbmtbyzx-Dzcfoekolw (Breztri Aerosphere) 160-9-4.8 MCG/ACT aerosol Inhale 2 [...] daily. Continuous Glucose Sensor (Dexcom G6 Sensor) [facility] USE DIRECTED TO MEASURE BLOOD SUGAR. REPLACE [...] Can be adjusted per the MD at [facility] Insulin Lispro (Admelog, HumaLOG) 100 UNIT/ML injection vial Inject 15 Units under the skin 3 timesa day with meals. Can be adjusted per the MD at [facility] Lantus SoloStar 100 UNIT/ML injection pen [...] [facility] Respiratory 800 [facility], 2nd [place] [phone] 11/29/2024 11:00 AM EDT Office Visit [facility] Respiratory 800 [facility], 2nd [place] [phone] Satnam Colvin MD 800 [facility] [address] [place] [address] 11/29/2024 12:30 PM EDT Appointment [facility] 1 [address] [place] [address] 11/30/2024 1:30 PM EDT Appointment [facility] 1 [address] [place] [address] 12/01/2024 2:00 PM EDT Appointment [facility] 1 [address] [place] [address] 12/06/2024 11:40 AM EDT Appointment [facility] Radiation 800 [facility]. [id number] [place] [phone] Haven Blum, WALL MIRROR DEPARTMENT SUPERVISOR 800 [facility] [address] [place] [address] 01/19/2025 9:30 AM EDT Appointment [facility] S Radiology [address], 1st [place] [address] 01/19/2025 10:45 AM EDT Office Visit [place] [facility] [address], 1st [place] [address] Abhilash Bangura MD [address] [place] [address] 03/08/2025 1:00 PM EDT Office Visit [facility] [place] Wenceslao [address] [place] [address] Teresita Oconnell MD [address] [place] [address] Scheduled Orders Name Type Priority Associated Diagnoses [...] documented as of this encounter Care Teams Mold Unloader Relationship Specialty Start Date End Date Laurie Gutierrez MD [address] [place] [address] PCP - General 12/09/23 Joshua Martínez MD [address] [place] [address] Consulting Physician Radiation Oncology 09/19/24 documented as of this encounter
--- OUTSIDE RECORDS SUMMARY | 2024-09-26 16:00 | XMS_ITS | Encounter Summary ---
Author Organization Healthcare Address [address] [place] [address] Care Team Providers Care Internal Medicine Nurse Name Role Phone Laurie Gutierrez MD Primary Care Provider [phone] Joshua Martínez MD Unavailable Encounter Details Date Type Department Care Team (Latest Contact Info) Description 09/26/2024 4:00 PM EDT - 09/26/2024 11:59 PM EDT Hospital Encounter [facility] Rad[facility] [id number] [place] [address] Discharge Disposition: Still a Patient 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 [...] any time in the past 12 m [facility], were you homeless or living in [...] drink first t laurie in the morning (EYE-MOLECULAR SPECTROSCOPIST) to steady your nerves or to get rid of a hangover? 0 11/19/2023 CAGE Questionnaire Score 0 024 Utilities Answer Date Recorded In the past 12 months has e [employer], [employer], oil, or water [employer] threatened to shut off services in your [...] MINI PEN NEEDLES 31G X 5 MM [facility] 09/19/2024 5 benzonatate (Tessalon) 200 MG capsule Take 1 capsule by mouth 3 times a day as needed for cough. 5 Blood Glucose Monitoring Suppl ([employer] Verio Flex System) w/Device kit 09/19/202410/16 5 carvedilol (Coreg) 12.5 MG tablet Take 1 tablet by mouth 2 times a day with meals. 5 ciclopirox (Penlac) 8 % solution Apply over affected nail fold daily. Continuous Glucose Sensor (Dexcom G6 Sensor) [facility] USE DIRECTED TO MEASURE BLOOD SUGAR. REPLACE [...] Can be adjusted per the MD at [facility] 09/09/2024 5 insulin lispro (Admelog, HumaLOG) 100 UNIT/ML injection pen 09/19/2024 5 Insulin Lispro (Admelog, HumaLOG) 100 UNIT/ML injection vial Inject 15 Units under the skin 3 times a day with meals. Can be adjusted per the MD at [facility] 09/09/2024 5 Lantus SoloStar 100 UNIT/ML [...] 09/09/2024 5 documented as of this encounter Plan of Treatment Upcoming Encounters Date Type Department Care Team ([facility] st Contact Info) Description 11/29/2024 10:30 AM EDT Clinical Support [facility] Res[facility] 800 [facility], 2nd [place] [address] 11/29/2024 11:00 AM EDT Office Visit [facility] Head[facility]ck [facility] Respiratory 800 [facility], 2nd [place] [address] Satnam Colvin MD 800 [facility] Nuria Degroot [facility] [address] [place] [address] 11/29/2024 12:30 PM EDT Appointment [facility] 1 [address] [place] [address] 11/30/2024 1:30 PM EDT Appointment [facility] 1 [address] [place] [address] 12/01/2024 2:00 PM EDT Appointment [facility] 1 [address] [place] [address] 12/06/2024 11:40 AM EDT Appointment [facility] Radiation 800 [facility]. [id number] [place] [address] Haven Blum, DIRECTOR POWER 800 [facility] [address] [place] [address] 01/19/2025 9:30 AM EDT Appointment [facility] S Radiology [address], 1st [place] [address] 01/19/2025 10:45 AM EDT Office Visit [place] [facility] [address], 1st [place] [address] Abhilash Bangura MD [address] [place] [address] 03/08/2025 1:00 PM EDT Office Visit [facility] [place] [address] [place] [address] Teresita Oconnell MD [address] [place] [address] documented as of this encounter [...] documented as of this encounter Care Teams Internal Medicine Nurse Relationship Specialty Start Date End Date Laurie Gutierrez MD [address] [place] [address] PCP - General 12/09/23 Joshua Martínez MD [address] [place] [address] Consulting Physician Radiation Oncology 09/19/24 documented as of this encounter
--- OUTSIDE RECORDS SUMMARY | 2024-10-03 10:06 | XMS_ITS | Encounter Summary ---
Author Organization [facility] Address [address] [place] [address] Care Team Providers Care Rn Eligibility Name Role Phone Laurie Gutierrez MD Primary Care Provider [phone] Joshua Martínez MD Unavailable Reason for Referral * Radiation Therapy (Routine) - Authorized Specialty Diagnoses / Procedures Referred By Contac t Referred To Contact Radiation Oncology Diagnoses 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CMS/HCC) Procedures Rad Onc Intent to Treat Joshua Martínez MD [address] [address] Phone: tel: fax: [facility] [address] [address] Phone: tel: fax: Referral ID Status Reason Start Date Expiration Date Visits Requested Visits Authorized [id number] Authorized Perform Procedure 09/30/2024 01/15/2025 10 10 Reason for Visit * Radiation Therapy (Routine) - Authorized Specialty Diagnoses / Procedures Referred By Contac t Referred To Contact Radiation Oncology Diagnoses 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CMS/HCC) Procedures Rad Onc Intent to Treat Joshua Martínez MD [address] [address] Phone: tel: fax: [facility] [address] [address] Phone: tel: fax: Referral ID Status Reason Start Date Expiration Date Visits Requested Visits Authorized [id number] Authorized Perform Procedure 09/30/2024 01/15/2025 10 10 Encounter Details Date Type Department Care Team (Latest Contact Info) Description 10/03/2024 10:06 AM EDT - 10/03/2024 11:59 PM EDT Hospital Encounter [facility] Radiation [id number] [place] [address] 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CMS/HCC) Discharge Disposition: Still [...] place to sleep or slept in a jail (including now)? No 11/20/2023 PHQ-9 Answer Date [...] any time in the past 12 m [facility], were you homeless or living in a jail (including now)? No 10/14/2024 CAGE ASSESSMENT Answer [...] drink first t laurie in the morning (EYE-SENIOR BUSINESS ARCHITECT) to steady your nerves or to get [...] for cough. 5 Blood Glucose Monitoring Suppl ([employer] Flex System) w/Device kit 09/19/202410/16 5 carvedilol (Coreg) 12.5 MG tablet Take 1 tablet by mouth 2 times a day with meals. 5 ciclopirox (Penlac) 8 % solution Apply over affected nail fold daily. 5 Continuous Glucose Housing And Residence Life Director (Dexcom G7 Housing And Residence Life Director) device USE TO MEASURE BLOOD SUGAR DIRECTED 09/29/2024 5 Continuous Glucose Sensor (Dexcom G6 Sensor) [facility] USE DIRECTED TO [...] Can be adjusted per the MD at [facility] 09/09/2024 5 insulin lispro (Admelog, HumaLOG) 100 UNIT/ML injection pen 09/19/2024 5 Insulin Lispro (Admelog, HumaLOG) 100 UNIT/ML injection vial Inject 15 Units under the skin 3 times a day with meals. Can be adjusted per the MD at [place] 09/09/2024 5 Lantus SoloStar 100 UNIT/ML injection [...] Take 2 tablets by mouth nightly. 09/09/2024 documented as of this encounter Plan of Treatment Upcoming Encounters Date Type Department Care Team ([facility] st Contact Info) Description 11/29/2024 10:30 AM EDT Clinical Support [facility] Head[facility] Neck & Respiratory [address] [address] 11/29/2024 11:00 AM EDT Office Visit Pav CC Head, Neck & Respiratory [address] [address] Satnam Colvin MD 800 [facility] Nuria Degroot [facility] [address] [place] [address] 11/29/2024 12:30 PM EDT Appointment [facility] 1 [address] [place] [address] 11/30/2024 1:30 PM EDT Appointment [facility] 1 [address] [place] [address] 12/01/2024 2:00 PM EDT Appointment [facility] 1 [address] [place] [address] 12/06/2024 11:40 AM EDT Appointment [facility] Radiation [id number] [place] [phone] Haven Blum, SHARDA [address] [place] [address] 01/19/2025 9:30 AM EDT Appointment [facility] S Radiology [address], 1st [place] [address] 01/19/2025 10:45 AM EDT Office Visit [place] [facility] [address], 1st [place] [address] Abhilash Bangura MD [address] [place] [address] 03/08/2025 1:00 PM EDT Office Visit [facility] [place] [address] [place] [phone] Teresita Oconnell MD [address] [place] [address] Scheduled Orders Name Type Priority [...] documented as of this encounter Care Teams Rn Eligibility Relationship Specialty Start Date End Date Laurie Gutierrez MD [address] [place] [address] PCP - General 7/24/24 Joshua Martínez MD [address] [place] [address] Consulting Physician Radiation Oncology 09/19/24 documented as of this encounter
--- OUTSIDE RECORDS SUMMARY | 2024-10-04 10:00 | XMS_ITS | Encounter Summary ---
Author Organization Healthcare Address [address] [place] [address] Care Team Providers Care Library Circulation Department Chief Name Role Phone Laurie Gutierrez MD Primary Care Provider [phone] Joshua Martínez MD Unavailable Reason for Visit * Reason Comments Labs Peripheral stick, le ft arm Encounter Details Date Type Department Care Team (Latest Contact Info) Description 10/04/2024 10:00 AM EDT Clinical Support [facility] [address] [place] [address] Extensive stage primary small cell carcinoma of lung 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 Tobacco Use Types Packs/Day Years [...] place to sleep or slept in a fpc (including now)? No 11/20/2023 PHQ-9 Answer Date [...] were you homeless or living in a fpc (including now)? No 09/06/2024 CAGE ASSESSMENT Answer [...] drink first t laurie in the morning (EYE-ANIMAL NUTRITION TEACHER) to steady your nerves or to get rid of a hangover? 0 11/19/2023 CAGE Questionnaire Score 0 024 Utilities Answer Date Recorded In the past 12 months has e electric, gas, oil, or water company threatened to shut off services in your home? No 09/06/2024 Comments No Sex and Gender Information Value Date Recorded Sex Assigned at Not on file Legal Sex Female 8:32 PM EDT Gender Identity Not on file Sexual Orientation Not on file documented as of this encounter Miscellaneous Notes * Clinician Note - Kasandra Riley - 10/04/2024 10:00 AM EDT Peripheral stick, left arm documented in this encounter Plan of Treatment Upcoming Encounters Date Type Department Care Team ([facility] st Contact Info) Description 11/29/2024 10:30 AM EDT Clinical Support [facility] 800 [facility], [address]nd [place] [address] 11/29/2024 11:00 AM EDT Office Visit [facility] 800 [facility] [address] [place] [address] Satnam Colvin MD 800 [facility] [address] [place] [address] 11/29/2024 12:30 PM EDT Appointment [facility] [address] [place] [address] 11/30/2024 1:30 PM EDT Appointment [facility] 1 [address] [place] [address] 12/01/2024 2:00 PM EDT Appointment [facility] 1 [address] [place] [address] 12/06/2024 11:40 AM EDT Appointment [facility] 800 [facility]. [address] [place] [address] Haven Blum, FEDERAL JAVA DEVELOPER [address] [place] [phone] 01/19/2025 9:30 AM EDT Appointment [facility] [address] [place] [address] 01/19/2025 10:45 AM EDT Office Visit [place] [facility] [address] [place] [address] Abhilash Bangura MD [address] [place] [address] 03/08/2025 1:00 PM EDT Office Visit [facility] [place] [address] [place] [address] Teresita Oconnell MD [address] [place] [address] documented as of this encounter Procedures Procedure Name Priority Date/Time Associated Diagnosis Comments TSH REFLEX FT4 Routine 10/04/2024 9:43 AM EDT Extensive stage primary small cell carcinoma of lung CBC WITH AUTO DIFFERENTIAL Routine 10/04/2024 9:43 AM EDT Extensive stage primary small cell carcinoma of lung MAGNESIUM, PLASMA STAT 10/04/2024 9:4 3 AM EDT Extensive stage primary small cell carcinoma of lung COMPREHENSIVE METABOLIC PANEL, PLASMA Routine 10/04/2024 9:43 AM EDT Extensive stage primary small cell carcinoma of lung documented in this encounter Results * TSH reflex FT4 (10/04/2024 9:43 AM EDT) Thyroid Stimulating Hormone, Plasma 0.90 0.40 - 4.20 uIU/mL 10/04/2024 10:29 AM EDT [facility] Blood Venous blood specimen / Unknown Venipuncture / Unknown 10/04/2024 9:43 AM EDT 10/04/2024 9:55 AM EDT us Satnam Dunne MD LAB BLOOD ORDERABLES Fi nal Result Performing Organization Address [facility]/ZIP Co de Phone Number [facility] [address] [place] [address] * (ABNORMAL) Magnesium (10/04/2024 9:43 AM EDT) Magnesium, Plasma 1.5(L) 1.9 - 2.4 mg/dL 10/04/2024 10:29 AM EDT [facility] Blood Venous blood specimen / Unknown Venipuncture / Unknown 10/04/2024 9:43 AM EDT 10/04/2024 9:55 AM EDT Satnam Dunne MD LAB BLOOD ORDERABLES Fi nal Result Performing Organization Address [facility] Co de Phone Number [facility] [address] [place] [address] * (ABNORMAL) Comprehensive metabolic panel (10/04/2024 9:43 AM EDT) Glucose, Plasma 263(H) 74 - 99 mg/dL 10/04/2024 10:29 AM EDT [facility] BUN, Plasma 22 8 - 23 mg/dL 10/04/2024 10:29 AM EDT [facility] Creatinine, Plasma 0.73 0.60 - 1.10 mg/dL 10/04/2024 10:29 AM EDT [facility] BUN/Creatinine Ratio 30 10/04/2024 10:29 AM EDT [facility] Sodium, Plasma 140 136 - 145 mmol/L 10/04/2024 10:29 AM EDT [facility] Potassium, Plasma 5.1(H) 3.6 - 4.9 mmol/L 10/04/2024 10:29 AM EDT [facility] Chloride, Plasma 99 97 - 107 mmol/L 10/04/2024 10:29 AM EDT [facility] CO2, Plasma 28 22 - 29 mmol/L 10/04/2024 10:29 AM EDT [facility] Anion Gap 13 6 - 16 mmol/L 10/04/2024 10:29 AM EDT [facility] Total Calcium, Plasma 8.7(L) 8.9 - 10.2 mg/dL 10/04/2024 10:29 AM EDT [facility] Total Protein 6.1(L) 6.3 - 7.9 g/dL 10/04/2024 10:29 AM EDT [facility] Albumin, Plasma 3.5 3.5 - 5.2 g/dL 10/04/2024 10:29 AM EDT [facility] AST, Plasma 22 10 - 35 U/L 10/04/2024 10:29 AM EDT [facility] Comment:Hemolyzed, result ma y be falsely increased. ALT, Plasma 39(H) 10 - 35 U/L 10/04/2024 10:29 AM EDT [facility] Alkaline Phosphatase, Plasma 111 46 - 142 U/L 10/04/2024 10:29 AM EDT [facility] Total Bilirubin, Plasma 0.4 0.2 - 1.1 mg/dL 10/04/2024 10:29 AM EDT [facility] eGFRcr 92.5 mL/min/1.7 3m*2 10/04/2024 10:29 AM EDT [facility] Comment:Reported eGFRcr in m L/min/1.73m2 is based the CKD-EPI 2020 equation that does not use a race coefficient. Blood Venous blood specimen / Unknown Venipuncture / Unknown 10/04/2024 9:43 AM EDT 10/04/2024 9:55 AM EDT us Satnam Dunne MD LAB BLOOD ORDERABLES Fi nal Result [facility] [address] [place] [address] * (ABNORMAL) CBC and differential (10/04/2024 9:43 AM EDT) WBC Count 7.20 3.70 - 10.30 10*3/uL LAB HEMATOLOGY METHOD 10/04/2024 10:10 AM EDT [facility] RBC Count 3.95 3.90 - 5.20 10*6/uL LAB HEMATOLOGY METHOD 10/04/2024 10:10 AM EDT [facility] HGB 12.2 11.2 - 15.7 g/dL LAB HEMATOLOGY METHOD 10/04/2024 10:10 AM EDT [facility] HCT 38.8 34.0 - 45.0 % LAB HEMATOLOGY METHOD 10/04/2024 10:10 AM EDT [facility] Platelet Count 139(L) 155 - 369 10*3/uL LAB HEMATOLOGY METHOD 10/04/2024 10:10 AM EDT [facility] MCV 98 79 - 98 fL LAB HEMATOLOGY METHOD 10/04/2024 10:10 AM EDT [facility] MCH 30.9 26.0 - 32.0 pg LAB HEMATOLOGY METHOD 10/04/2024 10:10 AM EDT [facility] MCHC 31.4 30.7 - 35.5 g/dL LAB HEMATOLOGY METHOD 10/04/2024 10:10 AM EDT [facility] RDW 15.9(H) 11.5 - 14.5 % LAB HEMATOLOGY METHOD 10/04/2024 10:10 AM EDT [facility] MPV 9.6 8.8 - 12.5 fL LAB HEMATOLOGY METHOD 10/04/2024 10:10 AM EDT [facility] nRBC 0.3(H) <=0.0 per 100 WBCs LAB HEMATOLOGY METHOD 10/04/2024 10:10 AM EDT [facility] Differential Type Automated LAB HEMATOLOGY METHOD 10/04/2024 10:10 AM EDT [facility] Neutrophils % 76 % LAB HEMATOLOGY METHOD 10/04/2024 10:10 AM EDT [facility] Lymphocytes % 15 % LAB HEMATOLOGY METHOD 10/04/2024 10:10 AM EDT [facility] Monocytes % 4 % LAB HEMATOLOGY METHOD 10/04/2024 10:10 AM EDT [facility] Eosinophils % 0 % LAB HEMATOLOGY METHOD 10/04/2024 10:10 AM EDT [facility] Basophils % 0 % LAB HEMATOLOGY METHOD 10/04/2024 10:10 AM EDT [facility] Immature Granulocytes % 5 % LAB HEMATOLOGY METHOD 10/04/2024 10:10 AM EDT [facility] Neutrophils Absolute 5.44 1.60 - 6.10 10*3/uL LAB HEMATOLOGY METHOD 10/04/2024 10:10 AM EDT [facility] Lymphocytes Absolute 1.06(L) 1.20 - 3.90 10*3/uL LAB HEMATOLOGY METHOD 10/04/2024 10:10 AM EDT [facility] Monocytes Absolute 0.28(L) 0.30 - 0.90 10*3/uL LAB HEMATOLOGY METHOD 10/04/2024 10:10 AM EDT [facility] Eosinophils Absolute 0.02 0.00 - 0.50 10*3/uL LAB HEMATOLOGY METHOD 10/04/2024 10:10 AM EDT [facility] Basophils Absolute 0.03 0.00 - 0.10 10*3/uL LAB HEMATOLOGY METHOD 10/04/2024 10:10 AM EDT [facility] Immature Granulocytes Absolute 0.37(H) 0.00 - 0.06 10*3/uL LAB HEMATOLOGY METHOD 10/04/2024 10:10 AM EDT [facility] Blood Venous blood specimen / Unknown Venipuncture / Unknown 10/04/2024 9:43 AM EDT 10/04/2024 9:58 AM EDT Narrative [facility] - 10/04/2024 10:10 AM EDT Therapeutic decision making should be based on absolute values, rather than percentages. Satnam Dunne MD LAB BLOOD ORDERABLES Fi nal Result [facility] [address] [place] [address] documented in this encounter Visit Diagnoses Diagnosis Extensive stage primary small cell carcinoma of lung documented in this encounter Additional Health Concerns Assessment Noted Time PHQ-9 Depression Total Score: 0 09/01/19 3:26 PM EDT A fall risk assessment has been complete d for the patient 10/04/2024 9:22 AM EDT A Body Mass Index follow-up plan has been documented for the patient 10/04/2024 1:42 PM EDT documented as of this encounter Care Teams Library Circulation Department Chief Relationship Specialty Start Date End Date Laurie Gutierrez MD [address] [place] [id number] PCP - General 12/09/23 Joshua Martínez MD [address] [place] [phone] Consulting Physician Radiation Oncology 09/19/24 documented as of this encounter
--- OUTSIDE RECORDS SUMMARY | 2024-10-04 10:40 | XMS_ITS | Encounter Summary ---
Author Organization Healthcare Address [address] [place] [address] Care Team Providers Care Labor Specialist Name Role Phone Laurie Gutierrez MD Primary Care Provider [phone] Joshua Martínez MD Unavailable Reason for Visit * Reason Comments Follow-up Encounter Details Date Type Department Care Team ([facility] Contact Info) Description 10/04/2024 10:40 AM EDT Office Visit [facility] Head, Neck & Respiratory [address] [facility], [address]nd [place] [address] Satnam Colvin MD [address] [facility] [address] [place] [address] Extensive stage primary small cell carcinoma of [...] place to sleep or slept in a correction (including now)? No 11/20/2023 PHQ-9 Answer Date [...] any time in the past 12 m [facility], were you homeless or living in a correction (including now)? No 09/06/2024 CAGE ASSESSMENT Answer [...] drink first t laurie in the morning (EYE-STUDENT LIFE ADVISOR) to steady your nerves or to get rid of a hangover? 0 11/19/2023 CAGE Questionnaire Score 0 024 Utilities Answer Date Recorded In the past 12 months has th e [employer], gas, oil, or water [employer] threatened to shut off services in your [...] time. Pharmacist Attestation: Rupa De Santiago PharmD, [facility] Clinical Oncology Pharmacist * Progress Notes - [...] 10/04-10/06/24 Oncology History: - initially diagnosed with [id number], stage IIIA limited stage of the right [...] in patients with cancer. MD GIGI Man [facility] HEAD, NECK & RESPIRATORY [address] [facility] [address] [facility]. [1] Past Medical History: Diagnosis Date [...] PLACEMENT N/A Ear Surgery Eustachian Tube from meevl [3] Family History Problem Relation Name Age [...] MINI PEN NEEDLES 31G X 5 MM [facility], , Disp: , Rfl: Blood Glucose Monitoring Suppl (Net 263Touch Verio Flex System) w/Device kit, , Disp: , Rfl: Kqmsama-Irxjpxfhzrq-Xyuptvorcm (Breztri Aerosphere) 160-9-4.8 MCG/ACT aerosol, Inhale 2 [...] Rfl: Continuous Glucose Sensor (Dexcom G6 Sensor) [facility], USE DIRECTED TO MEASURE BLOOD SUGAR. REPLACE [...] Can be adjusted per the MD at [facility], Disp: , Rfl: Insulin Lispro (Admelog, HumaLOG) 100 UNIT/ML injection vial, Inject 15 Units under the skin 3 times a day with meals. Can be adjusted per the MD at [facility], Disp: , Rfl: Lantus SoloStar 100 [...] [facility] Head, Neck & Respiratory [address] [facility], [address]nd [place] [address] 11/29/2024 11:00 AM EDT Office Visit [facility] Head, Neck & Respiratory [address] [facility], [address]nd [place] [address] Satnam Colvin MD [address] [facility] [address] [place] [address] 11/29/2024 12:30 PM EDT Appointment [facility] [address] [place] [address] 11/30/2024 1:30 PM EDT Appointment [facility] Infusion Clinic [address] [place] [address] 12/01/2024 2:00 PM EDT Appointment [facility] [address] [place] [address] 12/06/2024 11:40 AM EDT Appointment [facility] Radiation [address] [id number] [place] [address] Haven Blum, PAPER [employer]ATER [address] [facility] [address] [place] [address] 01/19/2025 9:30 AM EDT Appointment [facility] Radiology [address], [address] [place] [address] 01/19/2025 10:45 AM EDT Office Visit [place] [facility] [address], [address] [place] [address] Abhilash Bangura MD [address] [place] [address] 03/08/2025 1:00 PM EDT Office Visit [facility] [place] [address] [facility] [place] [address] Teresita Oconnell MD [address] [place] [address] documented as of this encounter Procedures Procedure Name Priority Date/Time Associated Diagnosis Comments CARIS NM TUMOR SEEK HYBRID + IHCS AND OTHER TESTS BY TUMOR TYPE Routine 10/05/2024 8:54 AM EDT Extensive stage primary small cell carcinoma of lung documented in this encounter Results * (ABNORMAL) Magnesium (11/08/2024 11:36 AM EDT) Magnesium, Plasma 1.6(L) 1.9 - 2.4 mg/dL 11/08/2024 12:14 PM EDT [facility] Blood Venous blood specimen / Unknown Venipuncture / Unknown 11/08/2024 11:36 AM EDT 11/08/2024 11:45 AM EDT Satnam Dunne MD LAB BLOOD ORDERABLES Fi nal Result [facility] [address] [place] [address] * (ABNORMAL) Comprehensive metabolic panel (11/08/2024 11:36 AM EDT) Glucose, Plasma 140(H) 74 - 99 mg/dL 11/08/2024 12:14 PM EDT [facility] BUN, Plasma 11 8 - 23 mg/dL 11/08/2024 12:14 PM EDT [facility] Creatinine, Plasma 0.77 0.60 - 1.10 mg/dL 11/08/2024 12:14 PM EDT [facility] BUN/Creatinine Ratio 14 11/08/2024 12:14 PM EDT [facility] Sodium, Plasma 144 136 - 145 mmol/L 11/08/2024 12:14 PM EDT [facility] Potassium, Plasma 4.1 3.6 - 4.9 mmol/L 11/08/2024 12:14 PM EDT [facility] Chloride, Plasma 105 97 - 107 mmol/L 11/08/2024 12:14 PM EDT [facility] CO2, Plasma 23 22 - 29 mmol/L 11/08/2024 12:14 PM EDT [facility] Anion Gap 16 6 - 16 mmol/L 11/08/2024 12:14 PM EDT [facility] Total Calcium, Plasma 9.3 8.9 - 10.2 mg/dL 11/08/2024 12:14 PM EDT [facility] Total Protein 7.1 6.3 - 7.9 g/dL 11/08/2024 12:14 PM EDT [facility] Albumin, Plasma 3.7 3.5 - 5.2 g/dL 11/08/2024 12:14 PM EDT [facility] AST, Plasma 17 10 - 35 U/L 11/08/2024 12:14 PM EDT [facility] ALT, Plasma 26 10 - 35 U/L 11/08/2024 12:14 PM EDT [facility] Alkaline Phosphatase, Plasma 94 46 - 142 U/L 11/08/2024 12:14 PM EDT [facility] Total Bilirubin, Plasma 0.4 0.2 - 1.1 mg/dL 11/08/2024 12:14 PM EDT [facility] eGFRcr 86.8 mL/min/1.7 3m*2 11/08/2024 12:14 PM EDT [facility] Comment:Reported eGFRcr in m L/min/1.73m2 is based the CKD-EPI 2020 equation that does not use a race coefficient. Blood Venous blood specimen / Unknown Venipuncture / Unknown 11/08/2024 11:36 AM EDT 11/08/2024 11:45 AM EDT Satnam uDnne MD LAB BLOOD ORDERABLES Fi nal Result [facility] [address] [place] [address] * (ABNORMAL) CBC and differential (11/08/2024 11:36 AM EDT) WBC Count 10.97(H) 3.70 - 10.30 10*3/uL LAB HEMATOLOGY METHOD 11/08/2024 11:52 AM EDT [facility] RBC Count 2.87(L) 3.90 - 5.20 10*6/uL LAB HEMATOLOGY METHOD 11/08/2024 11:52 AM EDT [facility] HGB 8.9(L) 11.2 - 15.7 g/dL LAB HEMATOLOGY METHOD 11/08/2024 11:52 AM EDT [facility] HCT 30.2(L) 34.0 - 45.0 % LAB HEMATOLOGY METHOD 11/08/2024 11:52 AM EDT [facility] Platelet Count 275 155 - 369 10*3/uL LAB HEMATOLOGY METHOD 11/08/2024 11:52 AM EDT [facility] MCV 105(H) 79 - 98 fL LAB HEMATOLOGY METHOD 11/08/2024 11:52 AM EDT [facility] MCH 31.0 26.0 - 32.0 pg LAB HEMATOLOGY METHOD 11/08/2024 11:52 AM EDT [facility] MCHC 29.5(L) 30.7 - 35.5 g/dL LAB HEMATOLOGY METHOD 11/08/2024 11:52 AM EDT [facility] RDW 19.9(H) 11.5 - 14.5 % LAB HEMATOLOGY METHOD 11/08/2024 11:52 AM EDT [facility] MPV 9.7 8.8 - 12.5 fL LAB HEMATOLOGY METHOD 11/08/2024 11:52 AM EDT [facility] nRBC 1.1(H) <=0.0 per 100 WBCs LAB HEMATOLOGY METHOD 11/08/2024 11:52 AM EDT [facility] Differential Type Automated LAB HEMATOLOGY METHOD 11/08/2024 11:52 AM EDT [facility] Neutrophils % 78 % LAB HEMATOLOGY METHOD 11/08/2024 11:52 AM EDT [facility] Lymphocytes % 13 % LAB HEMATOLOGY METHOD 11/08/2024 11:52 AM EDT [facility] Monocytes % 6 % LAB HEMATOLOGY METHOD 11/08/2024 11:52 AM EDT [facility] Eosinophils % 1 % LAB HEMATOLOGY METHOD 11/08/2024 11:52 AM EDT [facility] Basophils % 1 % LAB HEMATOLOGY METHOD 11/08/2024 11:52 AM EDT [facility] Immature Granulocytes % 1 % LAB HEMATOLOGY METHOD 11/08/2024 11:52 AM EDT [facility] Neutrophils Absolute 8.68(H) 1.60 - 6.10 10*3/uL LAB HEMATOLOGY METHOD 11/08/2024 11:52 AM EDT [facility] Lymphocytes Absolute 1.38 1.20 - 3.90 10*3/uL LAB HEMATOLOGY METHOD 11/08/2024 11:52 AM EDT [facility] Monocytes Absolute 0.68 0.30 - 0.90 10*3/uL LAB HEMATOLOGY METHOD 11/08/2024 11:52 AM EDT [facility] Eosinophils Absolute 0.07 0.00 - 0.50 10*3/uL LAB HEMATOLOGY METHOD 11/08/2024 11:52 AM EDT [facility] Basophils Absolute 0.06 0.00 - 0.10 10*3/uL LAB HEMATOLOGY METHOD 11/08/2024 11:52 AM EDT [facility] Immature Granulocytes Absolute 0.10(H) 0.00 - 0.06 10*3/uL LAB HEMATOLOGY METHOD 11/08/2024 11:52 AM EDT [facility] Blood Venous blood specimen / Unknown Venipuncture / Unknown 11/08/2024 11:36 AM EDT 11/08/2024 11:45 AM EDT Narrative [facility] - 11/08/2024 11:52 AM EDT Therapeutic decision making should be based on absolute values, rather than percentages. us Satnam Dunne MD LAB BLOOD ORDERABLES Fi nal Result [facility] [address] [place] [address] * (ABNORMAL) Caris NM Cancer Seek Hybrid??? + IHCs and Other Tests by Tumor Type (10/05/2024 8:54 AM EDT) CARIS PD-L1 (22C3) Negative 2024 8:15 PM EDT [employer] CARIS Genomic Loss of Heterozygosity - [place] Low 4% 10/16/2024 8:15 PM EDT [employer] CARIS Microsatellite Instability - [place] Stable 10/16/2024 8:15 PM EDT [employer] CARIS Tumor Mutational [place] - [place] High 11 per Mb 10/16/2024 8:15 PM EDT [employer] CARIS Her2/Megan Negative 10/16/2024 8:15 PM EDT [employer] CARIS HLA-A - [place] A*02:01,A*24 :02 10/16/2024 8:15 PM EDT [employer] CARIS HLA-B - [place] B*08:01,B*39 :06 10/16/2024 8:15 PM EDT [employer] CARIS HLA-C - [place] C*07:01,C*07 :02 10/16/2024 8:15 PM EDT [facility] Non-blood Collection / Unknown 10/05/2024 8:54 AM EDT 10/05/2024 8:54 AM EDT Narrative This result has genomic variants that were not included in this document. us Satnam Dunne MD LAB MOL DX NO SOURCE Fi nal Result [facility] [id number] [address], * TSH reflex FT4 (10/04/2024 9:43 AM EDT) Thyroid Stimulating Hormone, Plasma 0.90 0.40 - 4.20 uIU/mL 10/04/2024 10:29 AM EDT [facility] Blood Venous blood specimen / Unknown Venipuncture / Unknown 10/04/2024 9:43 AM EDT 10/04/2024 9:55 AM EDT Satnam Dunne MD LAB BLOOD ORDERABLES Fi nal Result Performing Organization Address City/[facility]/ZIP Co de Phone Number [facility] [address] [place] [address] * (ABNORMAL) Magnesium (10/04/2024 9:43 AM EDT) Magnesium, Plasma 1.5(L) 1.9 - 2.4 mg/dL 10/04/2024 10:29 AM EDT [facility] Blood Venous blood specimen / Unknown Venipuncture / Unknown 10/04/2024 9:43 AM EDT 10/04/2024 9:55 AM EDT us Satnam Dunne MD LAB BLOOD ORDERABLES Fi nal Result [facility] [address] [place] [address] * (ABNORMAL) Comprehensive metabolic panel (10/04/2024 9:43 AM EDT) Glucose, Plasma 263(H) 74 - 99 mg/dL 10/04/2024 10:29 AM EDT [facility] BUN, Plasma 22 8 - 23 mg/dL 10/04/2024 10:29 AM EDT [facility] Creatinine, Plasma 0.73 0.60 - 1.10 mg/dL 10/04/2024 10:29 AM EDT [facility] BUN/Creatinine Ratio 30 10/04/2024 10:29 AM EDT [facility] Sodium, Plasma 140 136 - 145 mmol/L 10/04/2024 10:29 AM EDT [facility] Potassium, Plasma 5.1(H) 3.6 - 4.9 mmol/L 10/04/2024 10:29 AM EDT [facility] Chloride, Plasma 99 97 - 107 mmol/L 10/04/2024 10:29 AM EDT [facility] CO2, Plasma 28 22 - 29 mmol/L 10/04/2024 10:29 AM EDT [facility] Anion Gap 13 6 - 16 mmol/L 10/04/2024 10:29 AM EDT [facility] Total Calcium, Plasma 8.7(L) 8.9 - 10.2 mg/dL 10/04/2024 10:29 AM EDT [facility] Total Protein 6.1(L) 6.3 - 7.9 g/dL 10/04/2024 10:29 AM EDT [facility] Albumin, Plasma 3.5 3.5 - 5.2 g/dL 10/04/2024 10:29 AM EDT [facility] AST, Plasma 22 10 - 35 U/L 10/04/2024 10:29 AM EDT [facility] Comment:Hemolyzed, result ma y be falsely increased. ALT, Plasma 39(H) 10 - 35 U/L 10/04/2024 10:29 AM EDT [facility] Alkaline Phosphatase, Plasma 111 46 - 142 U/L 10/04/2024 10:29 AM EDT [facility] Total Bilirubin, Plasma 0.4 0.2 - 1.1 mg/dL 10/04/2024 10:29 AM EDT [facility] eGFRcr 92.5 mL/min/1.7 3m*2 10/04/2024 10:29 AM EDT [facility] Comment:Reported eGFRcr in m L/min/1.73m2 is based the CKD-EPI 2020 equation that does not use a race coefficient. Blood Venous blood specimen / Unknown Venipuncture / Unknown 10/04/2024 9:43 AM EDT 10/04/2024 9:55 AM EDT Satnam Dunne MD LAB BLOOD ORDERABLES Fi nal Result [facility] [address] [place] [address] * (ABNORMAL) CBC and differential (10/04/2024 9:43 AM EDT) WBC Count 7.20 3.70 - 10.30 10*3/uL LAB HEMATOLOGY METHOD 10/04/2024 10:10 AM EDT [facility] RBC Count 3.95 3.90 - 5.20 10*6/uL LAB HEMATOLOGY METHOD 10/04/2024 10:10 AM EDT [facility] HGB 12.2 11.2 - 15.7 g/dL LAB HEMATOLOGY METHOD 10/04/2024 10:10 AM EDT [facility] HCT 38.8 34.0 - 45.0 % LAB HEMATOLOGY METHOD 10/04/2024 10:10 AM EDT [facility] Platelet Count 139(L) 155 - 369 10*3/uL LAB HEMATOLOGY METHOD 10/04/2024 10:10 AM EDT [facility] MCV 98 79 - 98 fL LAB HEMATOLOGY METHOD 10/04/2024 10:10 AM EDT [facility] MCH 30.9 26.0 - 32.0 pg LAB HEMATOLOGY METHOD 10/04/2024 10:10 AM EDT [facility] MCHC 31.4 30.7 - 35.5 g/dL LAB HEMATOLOGY METHOD 10/04/2024 10:10 AM EDT [facility] RDW 15.9(H) 11.5 - 14.5 % LAB HEMATOLOGY METHOD 10/04/2024 10:10 AM EDT [facility] MPV 9.6 8.8 - 12.5 fL LAB HEMATOLOGY METHOD 10/04/2024 10:10 AM EDT [facility] nRBC 0.3(H) <=0.0 per 100 WBCs LAB HEMATOLOGY METHOD 10/04/2024 10:10 AM EDT [facility] Differential Type Automated LAB HEMATOLOGY METHOD 10/04/2024 10:10 AM EDT [facility] Neutrophils % 76 % LAB HEMATOLOGY METHOD 10/04/2024 10:10 AM EDT [facility] Lymphocytes % 15 % LAB HEMATOLOGY METHOD 10/04/2024 10:10 AM EDT [facility] Monocytes % 4 % LAB HEMATOLOGY METHOD 10/04/2024 10:10 AM EDT [facility] Eosinophils % 0 % LAB HEMATOLOGY METHOD 10/04/2024 10:10 AM EDT [facility] Basophils % 0 % LAB HEMATOLOGY METHOD 10/04/2024 10:10 AM EDT [facility] Immature Granulocytes % 5 % LAB HEMATOLOGY METHOD 10/04/2024 10:10 AM EDT [facility] Neutrophils Absolute 5.44 1.60 - 6.10 10*3/uL LAB HEMATOLOGY METHOD 10/04/2024 10:10 AM EDT [facility] Lymphocytes Absolute 1.06(L) 1.20 - 3.90 10*3/uL LAB HEMATOLOGY METHOD 10/04/2024 10:10 AM EDT [facility] Monocytes Absolute 0.28(L) 0.30 - 0.90 10*3/uL LAB HEMATOLOGY METHOD 10/04/2024 10:10 AM EDT [facility] Eosinophils Absolute 0.02 0.00 - 0.50 10*3/uL LAB HEMATOLOGY METHOD 10/04/2024 10:10 AM EDT [facility] Basophils Absolute 0.03 0.00 - 0.10 10*3/uL LAB HEMATOLOGY METHOD 10/04/2024 10:10 AM EDT [facility] Immature Granulocytes Absolute 0.37(H) 0.00 - 0.06 10*3/uL LAB HEMATOLOGY METHOD 10/04/2024 10:10 AM EDT [facility] Blood Venous blood specimen / Unknown Venipuncture / Unknown 10/04/2024 9:43 AM EDT 10/04/2024 9:58 AM EDT Narrative [facility] - 10/04/2024 10:10 AM EDT Therapeutic decision making should be based on absolute values, rather than percentages. Satnam Dunne MD LAB BLOOD ORDERABLES Fi nal Result [facility] [address] [place] [address] documented in this encounter Visit Diagnoses Diagnosis [...] documented as of this encounter Care Teams Labor Specialist Relationship Specialty Start Date End Date Laurie Gutierrez MD [address] [place] [id number] PCP - General 12/09/23 Joshua Martínez MD [address] [facility] [address] [place] [address] Consulting Physician Radiation Oncology 09/19/24 documented as of this encounter
--- OUTSIDE RECORDS SUMMARY | 2024-10-04 11:02 | XMS_ITS | Encounter Summary ---
Author Organization [facility] Address [address] [place] [address] Care Team Providers Care Auditor Internal Name Role Phone Laurie Gutierrez MD Primary Care Provider [phone] Joshua Martínez MD Unavailable Reason for Visit * Episode Based Medications (Routine) - Authorized Specialty Diagnoses / Procedures Referred By Contac t Referred To Contact Diagnoses Extensive stage primary small cell carcinoma of lung Procedures CARBOplatin / Etoposide Daily x 3 / Atezolizumab Every 21 Days Satnam Colvin MD [address] [facility] Nuria Degroot [address] [address] Phone: tel: fax: Satnam Colvin MD [address] [facility] Nuria Degroot [address] [address] Phone: tel: fax: Referral ID Status Reason Start Date Expiration Date V isits Requested Visits Authorized [id number] Authorized 10/04/2024 04/05/2026 1 19 Encounter Details Date Type Department Care Team (Latest Contact Info) Description 10/04/2024 11:02 AM EDT - 10/04/2024 11:59 PM EDT Hospital Encounter [facility] [address] [place] [address] 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) Discharge Disposition: Home or Self Care 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 Tobacco Use Types Packs/Day Years [...] money to buy more. Never true 09/07/19 Within the past 12 months, t he [...] any time in the past [address] [facility], were you homeless or living [...] drink first t laurie in the morning (EYE-CELL ATTENDANT HELPER) to steady your nerves or to get [...] Sign Reading Time Taken Comments Blood Pressure 115/62 10/04/2024 3:20 PM EDT Pulse 83 10/04/2024 3:20 PM EDT Temperature 36.8 C (98.2 F) 10/04/2024 11:06 AM EDT Respiratory Rate 18 10/04/2024 11:06 AM EDT Oxygen Saturation 96% 10/04/2024 11:06 AM EDT Inhaled Oxygen Concentration - - Weight 117 kg (257 lb 15 oz) 10/04/2024 11:06 AM EDT Height 170.2 cm (5' 7 ) 10/04/2024 11:06 AM EDT Body Mass Index 40.4 10/04/2024 11:06 AM EDT documented in this encounter Medications at Time of Discharge atorvastatin (Lipitor) 40 MG tablet Take 1 tablet by mouth daily. Budeson-Glycopyr rol-Formoterol (Breztri Aerosphere) 160-9-4.8 MCG/ACT aerosol Inhale 2 puffs 2 (two) times a day. Calcium Carb-Cholecalcif anne 600-10 MG-MCG tablet Take 1 tablet by mouth daily. cetirizine (ZyrTEC) 10 MG tablet Take 1 tablet by mouth daily. empagliflozin (Jardiance) 25 MG Take 1 tablet by mouth daily. FLUoxetine (PROzac) 40 MG capsule Take 1 capsule by mouth daily. hydrOXYzine HCl (Atarax) 25 MG tablet Take 1 tablet by mouth 3 times a day as needed. magnesium oxide (Mag-Ox) 400 MG tablet Take 1 tablet by mouth 2 times a day. Hold for diarrhea 60 tablet 1 10/04/2024 melatonin tablet Take 2 tablets by mouth [...] tablet Take 1 tablet by mouth nightly. triamterene-hydr ochlorothiazide (Maxzide-25) 37.5-25 MG tablet Take 1 tablet by mouth every morning. Vitamin B-12 ER 1000 MCG tablet controlled-relea se Take 1 tablet by mouth Daily. Xarelto 20 MG tablet Take 1 tablet by mouth every evening. Accu-Chek Softclix Lancets lancets USE TO TEST BLOOD SUGAR 3 TIMES EACH DAY 09/01/2024 10/26/2024 Alcohol Swabs (Easy Touch Alcohol Prep Medium) 70 % pads 09/19/2024 10/26/2024 B-D UF III MINI PEN NEEDLES 31G X 5 MM misc 09/19/2024 10/26/2024 benzonatate (Tessalon) 200 MG capsule Take 1 capsule by mouth 3 times a day as needed for cough. 10/18/2024 Blood Glucose Monitoring Suppl (TeamDynamix Verio Flex System) w/Device kit 09/19/2024 10/26/2024 carvedilol (Coreg) 12.5 MG tablet Take 1 tablet by mouth 2 times a day with meals. 10/25/2024 ciclopirox (Penlac) 8 % solution Apply over affected nail fold daily. 10/26/2024 Continuous Glucose Doctor Of [employer] (Favor G7 Doctor Of Dental Surgery) device USE TO MEASURE BLOOD SUGAR DIRECTED 09/29/2024 10/26/2024 Continuous Glucose Sensor (Dexcom G6 Sensor) misc USE DIRECTED TO MEASURE BLOOD SUGAR. REPLACE SENSOR EVERY 10 DAYS 09/01/2024 10/26/2024 dexamethasone (Decadron) 2 MG tablet Take 2 tablets by mouth every 8 hours for 4 days, THEN 2 tablets every 12 hours for 4 days, THEN 1 tablet every 12 hours. 09/09/2024 10/18/2024 FREESTYLE LITE test strip USE TO TEST BLOOD SUGAR 3 TIMES EACH DAY AND NEEDED 09/01/2024 10/26/2024 gabapentin (Neurontin) 600 MG tablet Take 1 tablet by mouth 4 times a day. 11/08/2024 insulin glargine-yfgn 100 UNIT/ML injection vial Inject 45 Units under the skin nightly. Can be adjusted per the MD at [facility] 09/09/2024 10/18/2024 insulin lispro (Admelog, HumaLOG) 100 UNIT/ML injection pen 09/19/2024 10/15/2024 Insulin Lispro (Admelog, HumaLOG) 100 UNIT/ML injection vial Inject 15 Units under the skin 3 times a day with meals. Can be adjusted per the MD at [facility] 09/09/2024 10/18/2024 Lantus SoloStar 100 UNIT/ML injection pen 09/19/2024 10/15/2024 levETIRAcetam (Keppra) 500 MG tablet Take 1 tablet by mouth 2 times a day. 09/09/2024 10/18/2024 ondansetron (Zofran) 8 MG tablet Take 1 tablet by mouth every 8 hours as needed for nausea or vomiting. 10/26/2024 ondansetron (Zofran) 8 MG tabletIndication s:Extensive stage primary small cell carcinoma of lung Take 1 tablet by mouth 2 times a day. Take on Day 4 of cycle and then take PRN 30 tablet 5 10/04/2024 11/08/2024 polyethylene glycol (Miralax) 17 g packet Take 17 g by mouth daily. 09/10/2024 10/15/2024 prochlorperazine (Compazine) 10 MG tabletIndication s:Extensive stage primary small cell carcinoma of lung Take 1 tablet by mouth every 6 hours as needed for nausea or vomiting. 30 tablet 3 10/04/2024 11/08/2024 senna (Senokot) 8.6 MG tablet Take 2 tablets by mouth nightly. 09/09/2024 10/18/2024 documented as of this encounter Miscellaneous Notes * Pharmacy note - Gabriella Mckeon - 10/04/2024 12:00 PM EDT I counseled the patient on their chemotherapy/immunotherapy regimen, which included: Tecentriq Hybreza, Paraplatin, and Toposar. I provided the patient with a written explanation of the drugs contained in the regimen and their expected side effects, toxicities, and adverse reactions. I gave verbal e xplanation of the same material and provided methods for self-monitoring. I answered all questions that the patient and/or caregiver had. The patient and/or caregiver demonstrated understanding of the material. --Gabriella Mckeon PharmD Candidate of 2025 Cosigned by Floyd Mo PharmD at 10/20/2024 2:51 PM EDT Associated attestation - Floyd Mo PharmD - 10/20/2024 2:51 PM EDT I have reviewed patient and agree with pharmacy technician program director --Floyd Mo PharmD documented in this encounter Plan of Treatment Upcoming Encounters Date Type Department Care Team (Late st Contact Info) Description 11/29/2024 10:30 AM EDT Clinical Support [facility] [address] [facility], 2nd [place] [address] 11/29/2024 11:00 AM EDT Office Visit [facility] [address] [facility], 2nd [place] [address] Satnam Colvin MD [address] [facility] [address] [place] [address] 11/29/2024 12:30 PM EDT Appointment [facility] [address] [place] [phone] 11/30/2024 1:30 PM EDT Appointment [facility] [address] [place] [address] 12/01/2024 2:00 PM EDT Appointment [facility] [address] [place] [address] 12/06/2024 11:40 AM EDT Appointment [facility] Radiation [address] [facility]. [id number] [place] [phone] Haven Blum, ONCOLOGY SOCIAL WORKER [address] [facility] [id number] [place] [address] 01/19/2025 9:30 AM EDT Appointment [facility] Radiology [address], 1st [place] [id number] 01/19/2025 10:45 AM EDT Office Visit [place] [facility] [address], [address]st [place] [address] Abhilash Bangura MD [address] [place] [address] 03/08/2025 1:00 PM EDT Office Visit [facility] [place] [address] [facility] [place] [address] Teresita Oconnell MD [address] [place] [phone] documented as of this encounter Visit Diagnoses Diagnosis Extensive stage primary small cell carcinoma of lung- Primary documented in this encounter Administered Medications Inactive Administered Medications - up to 3 most recent administrations Medication Order MAR Action Action Date Dose Rate Site aprepitant (Cinvanti) 130 MG/18ML IV 130 mg 130 mg, Intravenous, Once, 1 dose, On Thu10/04/24 at 1230, RoutineIndications:Exten sive stage primary small cell carcinoma of lung New 10/04/2024 1:13 PM EDT 130 mg Atezolizumab-Hyaluronida se-tqjs (Tecentriq Hybreza) 1875-25764 MG-UT/15ML injection solution 1,875 mg 1,875 mg, Subcutaneous, Once, 1 dose, On Thu10/04/24 at 1300, RoutineIndications:Exten sive stage primary small cell carcinoma of lung New 10/04/2024 1:29 PM EDT 1,875 mg Right Outer Thigh CARBOplatin (Paraplatin) 650 mg in sodium chloride 0.9 % 250 mL IVPB 650 mg (rounded from 649 mg, Target AUC = 5), Intravenous, at 720 mL/hr, Administer over 30 Minutes, Once, Hazardous Drug-Tier 1 Precautions. Dispose in BLACK Hazardous Waste Container. Chemotherapy: refer to A14-065., On Thu10/04/24 at 1315, For 1 dose, Pharmacist to calculate carboplatin dose based on today's Scr. If dose changes by > 5%, verify new dose with physician.Indications:Ex tensive stage primary small cell carcinoma of lung New Bag 10/04/2024 1:40 PM EDT 650 mg 720 mL/hr dexamethasone (Decadron) tablet 12 mg 12 mg, Oral, Once, 1 dose, On Thu10/04/24 at 1230, RoutineIndications:Exten sive stage primary small cell carcinoma of lung Given 10/04/2024 12:13 PM EDT 12 mg etoposide (Toposar) 220 mg in sodium chloride 0.9 % 500 mL IVPB 220 mg (rounded from 226 mg = 100 mg/m2 2.26 m2 Treatment Plan BSA from Recorded weight), Intravenous, at 576 mL/hr, Administer over 60 Minutes, Once, Hazardous Drug-Tier 1 Precautions. Dispose in BLACK Hazardous Waste Container. Use 0.2 micron filter. Chemotherapy: refer to A14-065., On Thu10/04/24 at 1345, For 1 dose, NS 500 mL; Precipitation may occur with concentrations >0.4 mg/mL. Larger diluent volumes may be warranted dependent upon the patient's weight.Indications:Exten sive stage primary small cell carcinoma of lung New Bag 10/04/2024 2:20 PM EDT 220 mg 576 mL/hr magnesium oxide (Mag-Ox) tablet 400 mg 400 mg, Oral, Once as needed, 1 dose, Starting on Thu10/04/24 at 1201, Until Thu10/04/24 at 1213, Routine, For magnesium value 1.5 to 1.8 and patient having LESS THAN or EQUAL to 3 loose stools per dayIndications:Extensive stage primary small cell carcinoma of lung Given 10/04/2024 12:13 PM EDT 400 mg ondansetron ODT (Zofran-ODT) disintegrating tablet 16 mg 16 mg, Oral, Once, 1 dose, On Thu10/04/24 at 1230, RoutineIndications:Exten sive stage primary small cell carcinoma of lung Given 10/04/2024 12:13 PM EDT 16 mg documented in this encounter Additional Health Concerns Assessment Noted Time PHQ-9 Depression Total Score: 0 09/01/19 3:26 PM EDT A fall risk assessment has been complete d for the patient 10/04/2024 9:22 AM EDT A Body Mass Index follow-up plan has been documented for the patient 10/04/2024 1:42 PM EDT documented as of this encounter Care Teams Auditor Internal Relationship Specialty Start Date End Date Laurie Gutierrez MD [address] [place] [address] PCP - General 12/09/23 Joshua Martínez MD [address] [place] [address] Consulting Physician Radiation Oncology 09/19/24 documented as of this encounter
--- OUTSIDE RECORDS SUMMARY | 2024-10-05 14:13 | XMS_ITS | Encounter Summary ---
Author Organization [facility] Address [address] [place] [address] Care Team Providers Care Repair Supervisor Name Role Phone Laurie Gutierrez MD Primary Care Provider [phone] Joshua Martínez MD Unavailable Reason for Visit * Episode Based Medications (Routine) - Authorized Specialty Diagnoses / Procedures Referred By Contac t Referred To Contact Diagnoses Extensive stage primary small cell carcinoma of lung Procedures CARBOplatin / Etoposide Daily x 3 / Atezolizumab Every 21 Days Satnam Colvin MD 800 [facility] Nuria Degroot [address] [address] Phone: tel: fax: Satnam Colvin MD [address] [facility] Nuria Degroot [address] [address] Phone: tel: fax: Referral ID Status Reason Start Date Expiration Date V isits Requested Visits Authorized [id number] Authorized 10/04/2024 04/05/2026 1 19 Encounter Details Date Type Department Care Team (Latest Contact Info) Description 10/05/2024 2:13 PM EDT - 10/05/2024 11:59 PM EDT Hospital Encounter [facility] [address] [place] [address] Extensive stage primary small cell carcinoma of [...] place to sleep or slept in a halfway (including now)? No 11/20/2023 PHQ-9 Answer Date [...] in the past 12 m [facility], were you homeless or living in a halfway (including now)? No 10/14/2024 CAGE ASSESSMENT Answer [...] drink first t laurie in the morning (EYE-VEGETABLE HANDLER) to steady your nerves or to get [...] for cough. 10/18/2024 Blood Glucose Monitoring Suppl (Degreed Verio Flex System) w/Device kit 09/19/2024 10/26/2024 carvedilol (Coreg) 12.5 MG tablet Take 1 tablet by mouth 2 times a day with meals. 10/25/2024 ciclopirox (Penlac) 8 % solution Apply over affected nail fold daily. 10/26/2024 Continuous Glucose Line Maintenance Technician (Dexcom G7 Line Maintenance Technician) device USE TO MEASURE BLOOD SUGAR DIRECTED 09/29/2024 10/26/2024 Continuous Glucose Sensor (Dexcom G6 Sensor) [facility] USE DIRECTED TO MEASURE BLOOD SUGAR. REPLACE [...] skin nightly. Can be adjusted per the at [facility] 09/09/2024 10/18/2024 insulin lispro (Admelog, HumaLOG) 100 UNIT/ML injection pen 09/19/2024 10/15/2024 Insulin Lispro (Admelog, HumaLOG) 100 UNIT/ML injection vial Inject 15 Units under the skin 3 times a day with meals. Can be adjusted per the MD at [facility] 09/09/2024 10/18/2024 Lantus SoloStar 100 UNIT/ML [...] 09/09/2024 10/18/2024 documented as of this encounter Plan of Treatment Upcoming Encounters Date Type Department Care Team (Late st Contact Info) Description 11/29/2024 10:30 AM EDT Clinical Support [facility] Head[facility] Neck [facility] Respiratory [address] [facility], 2nd [place] [address] 11/29/2024 11:00 AM EDT Office Visit [facility] Head[facility] Neck [facility] Respiratory [address] [facility], 2nd [place] [address] Satnam Colvin MD [address] Deg[address] [facility] [address] [place] [address] 11/29/2024 12:30 PM EDT Appointment [facility] [address] [place] [address] 11/30/2024 1:30 PM EDT Appointment [facility] [address] [place] [address] 12/01/2024 2:00 PM EDT Appointment [facility] [address] [place] [address] 12/06/2024 11:40 AM EDT Appointment [facility] CC Radiation [address] [facility]. [address] [place] [address] Haven Blum, ORACLE PROGRAMMER ANALYST [address] [facility] [address] [place] [address] 01/19/2025 9:30 AM EDT Appointment [facility] S Radiology [address], 1st [place] [address] 01/19/2025 10:45 AM EDT Office Visit [place] [facility] [address], [address]st [place] [address] Abhilash Bangura MD [address] [place] [address] 03/08/2025 1:00 PM EDT Office Visit [facility] [place] W[facility]o [address] [facility] [place] [phone] Teresita Oconnell MD [address] [place] [address] documented as of this encounter [...] documented as of this encounter Care Teams Repair Supervisor Relationship Specialty Start Date End Date Laurie Gutierrez MD [address] [place] [address] PCP - General 12/09/23 Joshua Martínez MD [address] [place] [phone] Consulting Physician Radiation Oncology 09/19/24 documented as of this encounter
--- OUTSIDE RECORDS SUMMARY | 2024-10-06 14:22 | XMS_ITS | Encounter Summary ---
Author Organization [facility] Address [address] [place] [address] Care Team Providers Care Research Instrumentation Technician Name Role Phone Laurie Gutierrez MD Primary Care Provider [phone] Joshua Martínez MD Unavailable Reason for Visit * Episode Based Medications (Routine) - Authorized Specialty Diagnoses / Procedures Referred By Contac t Referred To Contact Diagnoses Extensive stage primary small cell carcinoma of lung Procedures CARBOplatin / Etoposide Daily x 3 / Atezolizumab Every 21 Days Satnam Colvin MD [address] [facility] Nuria Degroot [address] [address] Phone: tel: fax: Satnam Colvin MD [address] [facility] [place] Degroot [address] [address] Phone: tel: fax: Referral ID Status Reason Start Date Expiration Date V isits Requested Visits Authorized [id number] Authorized 10/04/2024 04/05/2026 1 19 Encounter Details Date Type Department Care Team (Latest Contact Info) Description 10/06/2024 2:22 PM EDT - 10/06/2024 11:59 PM EDT Hospital Encounter [facility] Infusion [address] [place] [address] Extensive stage primary small cell carcinoma of [...] any time in the past 12 m [facility], were you homeless or [...] drink first t laurie in the morning (EYE-MARINE STRUCTURAL DESIGNER) to steady your nerves or to get rid of a hangover? 0 11/19/2023 CAGE Questionnaire Score 0 024 Utilities Answer Date Recorded In the past 12 months has th e [employer], gas, oil, or water company threatened to [...] for cough. 10/18/2024 Blood Glucose Monitoring Suppl (Cytheris Verio Flex System) w/Device kit 09/19/2024 10/26/2024 carvedilol (Coreg) 12.5 MG tablet Take 1 tablet by mouth 2 times a day with meals. 10/25/2024 ciclopirox (Penlac) 8 % solution Apply over affected nail fold daily. 10/26/2024 Continuous Glucose Pantry Goods Worker (Dexcom G7 Pantry Goods Worker) device USE TO MEASURE BLOOD SUGAR DIRECTED [...] Can be adjusted per the MD at [facility] 09/09/2024 10/18/2024 insulin lispro (Admelog, HumaLOG) 100 UNIT/ML injection pen 09/19/2024 10/15/2024 Insulin Lispro (Admelog, HumaLOG) 100 UNIT/ML injection vial Inject 15 Units under the skin 3 times a day with meals. Can be adjusted per the MD at [facility] 09/09/2024 10/18/2024 Lantus SoloStar 100 UNIT/ML injection [...] Upcoming Encounters Date Type Department Care Team ([facility] Contact Info) Description 11/29/2024 10:30 AM EDT Clinical Support [facility] [address] [facility], [address]nd [place] [address] 11/29/2024 11:00 AM EDT Office Visit [facility] [address] [facility], [address]nd [place] [address] Satnam Colvin MD [address] [facility] Nuria Degroot [facility] [address] [place] [address] 11/29/2024 12:30 PM EDT Appointment [facility] [address] [place] [address] 11/30/2024 1:30 PM EDT Appointment [facility] [address] [place] [address] 12/01/2024 2:00 PM EDT Appointment [facility] [address] [place] [address] 12/06/2024 11:40 AM EDT Appointment [facility] Radiation [address] [facility]. [id number] [place] [address] Haven Blum, FINANCIAL MANAGEMENT [address] [facility] [id number] [place] [id number] 01/19/2025 9:30 AM EDT Appointment [facility] Radiology [address], [address] [place] [address] 01/19/2025 10:45 AM EDT Office Visit [place] [facility] [address], [address] [place] [address] Abhilash Bangura MD [address] [place] [address] 03/08/2025 1:00 PM EDT Office Visit [facility] [place] [address] [place] [address] Teresita Oconnell MD [address] [place] [address] documented as of this encounter [...] micron filter. Chemotherapy: refer to [id number]., On Thu10/06/24 at 1530, For 1 dose, NS 500 mL; Precipitation may occur with concentrations >0.4 mg/mL. Larger diluent volumes may be warranted dependent upon the patient's weight.Indications:Extensive stage primary small cell carcinoma of lung New Bag 10/06/2024 3:12 PM EDT 220 mg 576 mL/hr ondansetron ODT (Zofran-ODT) disintegrating tablet 16 mg 16 mg, Oral, Once, 1 dose, On Thu10/06/24 at 1500, RoutineIndications:Extensive stage primary small cell [...] documented as of this encounter Care Teams Research Instrumentation Technician Relationship Specialty Start Date End Date Laurie Gutierrez MD [address] [place] [address] PCP - General 12/09/23 Joshua Martínez MD [address] [place] [address] Consulting Physician Radiation Oncology 09/19/24 documented as of this encounter
--- OUTSIDE RECORDS SUMMARY | 2024-10-12 16:08 | XMS_ITS | Encounter Summary ---
Author Organization Healthcare Address [address] [place] [address] Care Team Providers Care Scrap Hooker Name Role Phone Laurie Gutierrez MD Primary Care Provider [phone] Joshua Martínez MD Unavailable Reason for Visit * Reason Comments Dizziness * Auth/Cert (Routine) Specialty Diagnoses / Procedures Referred By Contac t Referred To Contact Diagnoses Febrile neutropenia (CMS/HCC) Berto Stanford, DO [address] [place] [address] Phone: tel: fax: [facility] Emergency Department [address] [place] [address] Phone: tel: Referral ID Status Reason Start Date Expiration Date Visits Re quested Visits Authorized [id number] 1 1 Encounter Details Date Type Department Care Team (Latest Contact Info) Description 10/12/2024 4:08 PM EDT - 10/18/2024 12:48 PM EDT Hospital Encounter [facility] Inpatient [address] [place] [address] Shekhar Ledezma MD [address] [place] [address] Berto Stanford DO [address] [place] [address] Hyacinth Perkins MD [address] [place] [address] Claudia Cali, Unknown, [address] [place] [address] Febrile neutropenia (CMS/HCC) (Primary Dx); [...] place to sleep or slept in a retirement (including now)? No 11/20/2023 PHQ-9 Answer Date [...] any time in the past 12 m [facility], were you homeless or living in a retirement (including now)? No 10/14/2024 CAGE ASSESSMENT Answer [...] drink first t laurie in the morning (EYE-VB NET DEVELOPER) to steady your nerves or to get rid of a hangover? 0 11/19/2023 CAGE Questionnaire Score 0 024 Utilities Answer Date Recorded In the past 12 months has e [employer], gas, oil, or water company threatened to [...] tablet Take 1 tablet by mouth daily. benzonatate (Tessalon) 100 MG capsule Take 1 [...] tablet Take 1 tablet by mouth daily. dexamethasone (Decadron) 2 MG tablet Take 1 tablet by mouth every 12 hours. 10 tablet 10/18/2024 empagliflozin (Jardiance) 25 MG Take 1 [...] MINI PEN NEEDLES 31G X 5 MM [facility] 09/19/2024 5 Blood Glucose Monitoring Suppl (The Bakery Verio Flex System) w/Device kit 09/19/2024 5 carvedilol (Coreg) 12.5 MG tablet Take 1 tablet by mouth 2 times a day with meals. 5 ciclopirox (Penlac) 8 % solution Apply over affected nail fold daily. 5 Continuous Glucose Remelt Furnace Expediter (Franchisee Gladiator G7 Remelt Furnace Expediter) device USE TO MEASURE BLOOD SUGAR DIRECTED 09/29/2024 5 Continuous Glucose Sensor (Dexcom G6 Sensor) [facility] USE DIRECTED TO MEASURE BLOOD SUGAR. REPLACE SENSOR EVERY 10 DAYS 09/01/2024 FREESTYLE LITE test strip USE TO TEST BLOOD SUGAR 3 TIMES EACH DAY AND NEEDED 09/01/2024 gabapentin (Neurontin) 600 MG tablet Take 1 tablet by mouth 4 times a day. 5 insulin glargine-yfgn 100 UNIT/ML injection vial Inject 20 Units under the skin nightly. 10 mL 3 10/18/2024 Insulin Lispro (Admelog, HumaLOG) 100 UNIT/ML injection vial Inject 15 Units under the skin 3 times a day with meals. Can be adjusted per the MD at [facility] 10 mL 12 10/18/2024 5 Lantus SoloStar 100 UNIT/ML injection pen Inject under the skin 2 times a day. 10/18/2024 lidocaine (Xylocaine) 2 % solution Take 5 mL by mouth as needed for mild pain. 10/18/2024 nystatin (Mycostatin) 147744 UNIT/ML suspension Swish and swallow 5 mL [...] or vomiting. 30 tablet 3 10/04/2024 5 documented as of this encounter Miscellaneous Notes * Jeni Galeano - 10/18/2024 11:49 AM EDT Images from the original note were not included. [id number] Living with Lung Cancer When living with [...] you're not sure what to eat. This radiator specialist can teach you tips on how to [...] cancer, contact the following: ? Lung Cancer [place] at www.lungcanceralliance.org or 435-696-5721 ? [place] [employer] at www.cancer.org or 481-246-8284 ? [place] Lung Association at lung.org or 474-169-1738 ? National Cancer [place] at www.cancer.gov or 356-412-7270 Last Reviewed Date: 2022 00:00:00 ?? The [employer]. All rights reserved. This information is not intended as a substitute for professional medical care. Always follow your healthcare professional's instructions. * Care Plan - Jeni Clark - 10/18/2024 11:17 AM EDT Problem: Adult [...] PCP name and Address: Laurie Gutierrez MD [address] [place], [place] [address] Referring provider name and address: No referring [...] medically stable for discharge. To followup with Susanc and Nena as OP for cancer care. Discharge Diagnosis: Sepsis with febrile severe neutropenia due to CAP. 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 Will continue to follow with Dr Veedu for ongoing cancer care. Paroxysmal atrial fibrillation [...] Breztri Aerosphere 160-9-4.8 MCG/ACT aerosol Generic drug: Ornursn-Qydulclxamp-Taitahowup Inhale 2 puffs 2 (two) times a [...] Can be adjusted per the MD at [facility] magic mouthwash BLM suspension Swish and spit [...] Take 1 tablet by mouth nightly. nystatin 876070 UNIT/ML suspension Commonly known as: Mycostatin Swish [...] 4 of cycle and then take PRN OneTouch Verio Flex System w/Device kit pantoprazole 40 MG [...] Your Medications These medications were sent to [facility] - [place], [place] - [address] [facility] [address] benzonatate 100 MG capsule dexamethasone 2 MG tablet insulin glargine-yfgn 100 UNIT/ML injection vial Insulin Lispro 100 UNIT/ML injection vial magic mouthwash BLM suspension nystatin 143334 UNIT/ML suspension Discharge Diagnosis Medical Problems Active [...] Time Provider Department Center 10/20/2024 10:00 AM [facility] RAD ONC CT SIMULATOR KEVIN Vasquez 10/25/2024 11:45 AM [facility] RN VI Vasquez 10/25/2024 12:00 PM Satnam Colvin MD [facility] 10/25/2024 1:30 PM [facility] 10/26/2024 3:30 PM [facility] 10/27/2024 3:30 PM [facility] 11/08/2024 1:30 PM August Arriola DO [facility] 03/08/2025 1:00 PM Teresita Oconnell MD [facility] I Test Results Pending [...] of antibiotics on Thursday Claudia Cali MD [facility] Medicine Please reach out using Chir[employer] Interactive secure chat. * Progress Notes - Nicol Torres - 10/17/2024 2:04 PM EDT Case Management Adult Progress Note Teresa Rivera 63 y.o. female CSN: [id number] Admission: 10/12/2024 4:08 PM Primary Problem: Neutropenic [...] of antibiotics on Thursday Claudia Cali MD [facility] Medicine Please reach out using Ch[employer] secure chat. * Care Plan - Quan [...] Intervention: Identify and Manage Contributors Flowsheets (Taken 10/16/2024 0834) Medication Review/Management: medications reviewed Self-Care Promotion: independence encouraged Intervention: Promote Injury-Free Environment Flowsheets (Taken 10/16/2024 08) Safety Promotion/Fall Prevention: activity supervised assistive device/personal items within reach Problem: Pain Acute Goal: Optimal Pain Control and Function 10/16/2024 0834 by Quan Chavez Outcome: Ongoing, Progressing 10/16/2024 0834 by Quan Chavez Outcome: Ongoing, Progressing * Care Plan - Gladys Steele RN - 10/16/2024 12:32 AM EDT Problem: [...] Please call with any questions or concerns. [phone] All Prabhakar M.D. Resident Physician PGY-3 Department of Neurosurgery [facility] Cosigned by Amilcar Farnsworth MD at 10/16/2024 [...] MD Hospital Medicine Please reach out using Chirp Interactive secure chat. * Care Plan - Rupa [...] Ongoing, Progressing * Progress Notes - Mt Anguiano, PharmD - 10/14/2024 4:30 PM EDT Pharmacokinetic [...] and ampicillin for empiric coverage of meningitis/central AUTHORS MOTIVATIONAL infection and bacterial pneumonia, deescalate to treat [...] Note Teresa Rivera 63 y.o. female CSN: [id number] Admission: 10/12/2024 4:08 PM Primary Problem: Neutropenic fever (CMS/HCC) Bridge Ironworker reviewed chart and spoke with patient to complete this Initial Case Management Assessment. PCP: Laurie Gutierrez MD Emergency Contact: Extended Emergency Contact Information Primary Emergency Contact: NicoleZachary Mobile Relation: Son Preferred language: Tanzanian Machine Installer needed? No Secondary Emergency Contact: NicoleAurora Mobile Relation: Daughter Preferred language: [place]anian Machine Installer needed? No Insurance: Primary Visit Coverage Payer Plan Sponsor Code Group Number Group Name [employer] [id number] Primary Visit Coverage Subscriber Subscriber ID Subscriber Name Subscriber SSN Subscriber Address [id number] TERESA RIVERA [id number] [place] [address] Patient information: admit to with history of [...] and has home assistance and transport. 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) Income/Expense Information: Income meets expenses Current Resources Utilized: None Housing Circumstances-Z Codes: Housing Circumstances (select all that apply): Low Income (101-300% Federal Poverty Guidlines) - Z596 Anticipated Discharge Date: 72 hr Patient's Discharge Goal: home Assistance Available at Discharge: daughter Discharge Transport: daughter Follow Up Transport: family Home Health / Home Infusion / Outpatient Dialysis Services: none reported Living Will/Advance Directive/Power of Help Desk Specialist /Guardian: reports advanced directive in place and [...] Please call with any questions or concerns. [phone] All Prabhakar M.D. Resident Physician PGY-3 Department of Neurosurgery [facility] Cosigned by Abhilash Bangura MD at 10/17/2024 [...] Interventional Radiology Brief Postprocedure Note Attending: Rosalina Associate Automation Engineer: Rosario Pre-operative Diagnosis: neutropenic fever, headache, residual [...] is in stable condition. * Consults - iLsa Romano PA - 10/14/2024 8:32 AM EDTAssociated [...] PRN Vesna Barcenas MD 100 mg at 10/13/24 2157 calcium carbonate (Tums) chewable tablet 500 mg 500 mg Oral 4x daily PRN Vesna Barcenas MD 500 mg at 10/13/24 0541 cefepime (Maxipime) 2 g in sodium chloride 0.9% 100 mL IVPB (vial adapter required) 2 g Aakdizxyyqhl3m John Nieves MD 36.7 mL/hr at 10/14/24 [...] TID John Nieves MD 300 mg at 10/13/24 2154 hydrOXYzine HCl (Atarax) tablet 25 mg 25 mg Oral q12h PRN John Nieves MD insulin glargine-yfgn 100 UNIT/ML injection 15 Units 15 Units Subcutaneous Nightly John Nieves MD 15 Units at 10/13/242156 insulin lispro (Admelog) 100 units/mL injection - Correction - Standard Dose 0-5 Units SubcutaneousTID with meals John Nieves MD 3 Units at 10/13/24 180 insulin lispro (Admelog) injection - Correction - Nighttime Dose 0-3 Units Subcutaneous Twice at night John Nieves MD levETIRAcetam (Keppra) tablet 500 mg 500 mg Oral BID John Nieves MD 500 mg at 10/13/242153 lidocaine-EPINEPHrine (Xylocaine W/EPI) 1 %-1:684419 injection 20 mL 20 mL Infiltration Once Domingo Waldrop MD xfbtdwemv-iqszcmdwpta-baikssrxcc (L.E.T.) topical gel 1 Application 1 Application [...] Barcenas MD 5 mg at 10/13/242119 Tiotropium Mchenry Monohydrate (Spiriva Respimat) 2.5 MCG/ACT inhaler 2 puff 2 puff Inhalation Daily John Nieves MD 2 puff at 10/13/24 0821 And mometasone-formoterol (Dulera 200) 200-5 MCG/ACT inhaler 2 puff 2 puff Inhalation BID Clara Nieves MD 2 puff at 10/13/24 0909 montelukast (Singulair) tablet 10 mg 10 mg Oral Nightly John Nieves MD 10 mg at 10/13/242152 nystatin (Mycostatin) 031125 UNIT/ML suspension 500,000 Units 5 mL Swish [...] Nieves MD 40 mg at 10/13/24 0821 polyethylene glycol (Miralax) packet 17 g 17 [...] EDT Transport arrived to transport pt to 125. Attempted to call report. Per Belle, on [...] and ampicillin for empiric coverage of meningitis/central AUTHORS MOTIVATIONAL infection and bacterial pneumonia -blood cx, UA [...] 09/05/24 for metastatic small-cell lung cancer. Completed Alfa andis currently on dexamethasone taper. -MRI head [...] cell carcinoma of lung 10/04/2024 - Chemotherapy Vbslujkjeegm-Gjmuvzicehtjp-dopv (Tecentriq Hybreza) 1875-91577 MG-UT/15ML injection solution 1,875 mg, 1,875 mg, [...] Family History[3] 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 Patient lives in [place], [place] Tobacco Use History[4] 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 Substance [...] September; following L frontal craniotomy 09/05 began F0wysnv/etop/atezolizumab 10/04 - 10/06 - CT chest 09/[address] AP 10/12 w no evident recurrent visceral involvement - Further care as below; can assist w rescheduling outpt fu as indicated, pending dispo #Febrile neutropenia w sepsis #Gr3 thrombocytopenia #Chemotherapy related #Concern for risk of meningeal/AUTHORS MOTIVATIONAL infection in context of recent crani - [...] should other questions/concerns arise. RACHEL Adames Physician Associate Automation Engineer Division of Medical Oncology [1] Past Medical [...] SURGERY TUBAL LIGATION N/A Tubal Ligation from [facility] TYMPANOSTOMY TUBE PLACEMENT N/A Ear Surgery Eustachian Tube from [facility] [3] Family History Problem Relation Name Age [...] Please call with any questions or concerns. [phone] Zachary Brown MD Resident Physician, PGY-2 Department of neurosurgery Pager: [phone] Cosigned by Gabino Adam MD at 10/13/2024 [...] 10/12/2024 10:22 PM EDTAssociated Order(s): Consult to [facility] Images from the original note were not included. Consult to [facility] Consult performed by: John Nieves MD Consult ordered by: Callie Samuel PA [facility] Medicine History & Physical Subjective 10/12/2024 [...] injectable 05/27/2013, 02/19/2017, 03/13/2021 Moderna COVID-19 Vaccine (Printed Circuit Board Panels Plater) 12+ years 06/26/2020, 02/06/2021, 10/03/2021 Moderna COVID-19 [...] times daily PRN Blood Glucose Monitoring Suppl (The Bakery Verio Flex System) w/Device kit Peszvye-Irlgiegfund-Akvlkoihhp (Breztri Aerosphere) 160-9-4.8 MCG/ACT aerosol 2 puffs, 2 times daily Calcium Carb-Cholecalciferol 600-10 MG-MCG tablet 600 mg, Daily carvedilol (COREG) 12.5 mg, 2 times daily with meals cetirizine (ZYRTEC) 10 mg, Daily ciclopirox (Penlac) 8 % solution Apply over affected nail fold daily. Continuous Glucose Sensor (Dexcom G6 Sensor) [facility] USE DIRECTED TO MEASURE BLOOD SUGAR. REPLACE [...] Can be adjusted per the MD at [facility] insulin lispro (Admelog, HumaLOG) 100 UNIT/ML injection pen Insulin Lispro (ADMELOG, HUMALOG) 15 Units, Subcutaneous, 3 times daily with meals, Can be adjustedper the MD at [facility] Pop Gardner 100 UNIT/ML injection pen levETIRAcetam (KEPPRA) 500 [...] and ampicillin for empiric coverage of meningitis/central AUTHORS MOTIVATIONAL infection and bacterial pneumonia - ordered additional [...] SURGERY TUBAL LIGATION N/A Tubal Ligation from [facility] TYMPANOSTOMY TUBE PLACEMENT N/A Ear Surgery Eustachian Tube from [facility] [3] Family History Problem Relation Name Age [...] M.D. Resident Physician PGY-3 Department of Neurosurgery [facility] [1] Current Facility-Administered Medications Medication Dose Route Frequency Provider Last Rate Last Admin cefepime (Maxipime) 2 g in sodium chloride 0.9% 100 mL IVPB (vial adapter required) 2 g IntravenousOnce LizzieCallie PA 36.7 mL/hr at 10/12/24 1836 2 g at 10/12/24 183 magnesium sulfate IVPB 2 g 2 g Intravenous Once LizzieCallie PA 25 mL/hr at 10/12/24 1845 2 g at 10/12/24 184 vancomycin (Vancocin) 2,500 mg in sodium chloride 0.9 % 500 mL IVPB 20 mg/kg Intravenous Once LizzieCallie PA 2,500 mg at 10/12/24 1848 Current [...] Reported on 10/04/2024) Blood Glucose Monitoring Suppl (The Bakery Verio Flex System) w/Device kit Imcepwy-Gtyfcrnourl-Hjwxcxvizk (Breztri Aerosphere) 160-9-4.8 MCG/ACT aerosol Inhale 2 [...] daily. Continuous Glucose Sensor (Dexcom G6 Sensor) [facility] USE DIRECTED TO MEASURE BLOOD SUGAR. REPLACE [...] Can be adjusted per the MD at [facility] insulin lispro (Admelog, HumaLOG) 100 UNIT/ML injection pen (Patient not taking: Reported on 10/04/2024) Insulin Lispro (Admelog, HumaLOG) 100 UNIT/ML injection vial Inject 15 Units under the skin 3 timesa day with meals. Can be adjusted per the MD at [facility] Lantus SoloStar 100 UNIT/ML injection [...] All Other Orders Ordered Status Ordering Provider 10/12/24 192 Manual Differential Once Final result LALA SAMUELLINE A 10/12/24 192 Morphology Once Final result CALLIE SAMUEL A 10/12/24 191 Consult to Neurosurgery Once Specialty: Neurosurgery Provider: (Not yet assigned) Acknowledged LIZZIE CALLIE A 10/12/24 190 Consult to [facility] Once Specialty: Internal Medicine Provider: (Not yet assigned) Acknowledged CALLIE SAMUEL A 10/12/24 190 ED to floor bed request Once Acknowledged LALA SAMUELLINE A 10/12/24 185 Once Specialty: Cardiology Provider: (Not yet assigned) Canceled REBAMPARO CALLIE A 10/12/24 183 Once Specialty: Cardiology Provider: (Not yet assigned) Canceled REBAMPARO CALLIE A 10/12/24 1814 ECG Adult Once Preliminary result SHEKHAR LEDEZMA 10/12/24 1801 Initiate neutropenic isolation Continuous Acknowledged REBSAMEN, CALLIE A 10/12/24 174 Initiate contact isolation Continuous Comments: Added via Instant Order OPA Acknowledged BPA, INSTANT ORDERS 10/12/24 1742 Initiate droplet isolation Continuous Comments: Added via Instant Order OPA Acknowledged BPA, INSTANT ORDERS 10/12/[address] Abdomen Pelvis w IV Contrast Once Preliminary result REBSAMEN CALLIE A 10/12/[address] Head wo IV Contrast Once Final result REBSAMEN, CALLIE A 10/12/24 1623 Lactic acid, venous STAT Final result REBSAMEN, CALLIE A 10/12/24 1623 Nasopharyngeal Respiratory Panel Once In process REBSAMEN, CALLIE A 10/12/24 1623 XR Chest 1 View One time imaging Final result REBSAMEN, CALLIE A 10/12/24 1623 Urinalysis with reflex microscopic AND reflex culture (IF UTI SUSPECTED) STAT Acknowledged REBSAMEN CALLIE A 10/12/24 1623 Urinalysis with reflex microscopic (Culture NOT Included) PROCEDURE ONCE Ordered REBSAMEN, CALLIE A 10/12/24 1623 Urine Meek Panel PROCEDURE ONCE Ordered REBSAMEN, CALLIE A 10/12/24 1623 CBC w/diff STAT Final result REBSAMEN, CALLIE A 10/12/24 1623 CMP STAT Final result REBSAMEN, CALLIE A 10/12/24 1623 Magnesium STAT Final result REBSAMEN CALLIE A 10/12/24 1623 Phosphorus STAT Final result REBSAMEN CALLIE A 10/12/24 1623 C-Reactive protein STAT [...] 1854 Had an interactive discussion with cards media/instructional designer, States to avoid rate control in patient [...] ED Prescriptions None Disposition Admit Requested Location: [facility] [[id number]] - [1] Past Medical History: Diagnosis Date [...] SURGERY TUBAL LIGATION N/A Tubal Ligation from [facility] TYMPANOSTOMY TUBE PLACEMENT N/A Ear Surgery Eustachian Tube from [facility] [3] Family History Problem Relation Name Age [...] provider: MARIA GUADALUPE Samuel Transferring attending: Darien TERRY Time: 1929 I received sign-out and accepted [...] solution 50 mL 50 mL Intravenous Given 10/12/20242152 EDT dextrose 50 % solution - Pyxis [...] 1854 Had an interactive discussion with cards media/instructional designer, States to avoid rate control in patient [...] medicine, patient accepted to their service. [facility] Edwin Krishna PA-C pending admission to hospital medicine. [...] None Disposition Admit Admitting/Attending Physician: BERTO STANFORD [[id number]] Provider Care Team: WENCESLAO 2 [185] Are [...] [facility] [address] [address] 11/29/2024 11:00 AM EDT Office Visit [facility] [address] [address] Satnam Colvin MD 800 [facility] [address] [place] [address] 11/29/2024 12:30 PM EDT Appointment [facility] [address] [place] [address] 11/30/2024 1:30 PM EDT Appointment [facility] [address] [place] [address] 12/01/2024 2:00 PM EDT Appointment [facility] [address] [place] [address] 12/06/2024 11:40 AM EDT Appointment [facility] Radiation [address] [place], [place] [address] Haven Blum, FARM IMPLEMENT MECHANIC [address] [place] [address] 01/19/2025 9:30 AM EDT Appointment [facility] Radiology [address] [place] [address] 01/19/2025 10:45 AM EDT Office Visit [place] [facility] [address] [place] [address] Abhilash Bangura MD [address] [place] [address] 03/08/2025 1:00 PM EDT Office Visit [facility] [place] [address] [place] [address] Teresita Oconnell MD [address] [place] [address] documented as of this encounter [...] POCT glucose meter (10/18/2024 8:29 AM EDT) [facility] POCT Glucose 251(H) 74 - 99 mg/dL 10/18/2024 8:31 AM EDT [facility] Comment:Accuracy of a glucos e [...] 10/18/2024 8:31 AM EDT [facility] Inter Fold Roll Cutter ID Isabelle Liu 10/18/2024 8:31 AM EDT [facility] Device ID [id number] 10/18/2024 8:31 AM EDT [facility] Specimen Type POC Capillary 10/18/2024 8:31 AM EDT [facility] Blood Capillary blood specimen / Unknown 10/18/2024 8:29 AM EDT 10/18/2024 8:31 AM EDT us Unknown Claudia Cali MD LAB POINT OF C ARE TEST DOCKED DEVICE UNSOLICITED RESULTS Final Result Performing Organization Address [facility]/ZIP Co de Phone Number [facility] [address] [place] [address] * Morphology (10/18/2024 3:46 AM EDT) Blood Venous blood specimen / Unknown Venipuncture / Unknown 10/18/2024 3:46 AM EDT 10/18/2024 3:53 AM EDT us Unknown Claudia Cali MD LAB BLOOD ORDERABLES F inal Result Performing Organization Address City/[facility]/ZIP Co de Phone Number [facility] [address] [place] [address] * (ABNORMAL) Manual Differential (10/18/2024 3:46 AM EDT) Blasts % 0 % LAB HEMATOLOGY METHOD 10/18/2024 5:06 AM EDT [facility] Promyelocytes % 2 % LAB HEMATOLOGY METHOD 10/18/2024 5:06 AM EDT [facility] Myelocytes % 2 % LAB HEMATOLOGY METHOD 10/18/2024 5:06 AM EDT [facility] Metamyelocytes % 5 % LAB HEMATOLOGY METHOD 10/18/2024 5:06 AM EDT [facility] Neutrophils % 87 % LAB HEMATOLOGY METHOD 10/18/2024 5:06 AM EDT [facility] Lymphocytes % 4 % LAB HEMATOLOGY METHOD 10/18/2024 5:06 AM EDT [facility] Reactive Lymphocytes % 0 % LAB HEMATOLOGY METHOD 10/18/2024 5:06 AM EDT [facility] Monocytes % 0 % LAB HEMATOLOGY METHOD 10/18/2024 5:06 AM EDT [facility] Eosinophils % 0 % LAB HEMATOLOGY METHOD 10/18/2024 5:06 AM EDT [facility] Basophils % 0 % LAB HEMATOLOGY METHOD 10/18/2024 5:06 AM EDT [facility] Blasts Absolute LAB HEMATOLOGY METHOD 10/18/2024 5:06 AM EDT [facility] Promyelocytes Absolute 0.08 10*3/uL LAB HEMATOLOGY METHOD 10/18/2024 5:06 AM EDT [facility] Myelocytes Absolute 0.08 10*3/uL LAB HEMATOLOGY METHOD 10/18/2024 5:06 AM EDT [facility] Metamyelocytes Absolute 0.21 10*3/uL LAB HEMATOLOGY METHOD 10/18/2024 5:06 AM EDT [facility] Neutrophils Absolute 3.58 1.60 - 6.10 10*3/uL LAB HEMATOLOGY METHOD 10/18/2024 5:06 AM EDT [facility] Lymphocytes Absolute 0.16(L) 1.20 - 3.90 10*3/uL LAB HEMATOLOGY METHOD 10/18/2024 5:06 AM EDT [facility] LAB Reactive Lymphocytes Absolute LAB HEMATOLOGY METHOD 10/18/2024 5:06 AM EDT [facility] Monocytes Absolute LAB HEMATOLOGY METHOD 10/18/2024 5:06 AM EDT [facility] Eosinophils Absolute LAB HEMATOLOGY METHOD 10/18/2024 5:06 AM EDT [facility] Basophils Absolute LAB HEMATOLOGY METHOD 10/18/2024 5:06 AM EDT [facility] Blood Venous blood specimen / Unknown Venipuncture / Unknown 10/18/2024 3:46 AM EDT 10/18/2024 3:53 AM EDT us Unknown Claudia Cali MD LAB BLOOD ORDERABLES F inal Result [facility] [address] [place] [address] * (ABNORMAL) CBC and Differential (10/18/2024 3:46 AM EDT) WBC Count 4.12 3.70 - 10.30 10*3/uL LAB HEMATOLOGY METHOD 10/18/2024 5:06 AM EDT [facility] RBC Count 3.21(L) 3.90 - 5.20 10*6/uL LAB HEMATOLOGY METHOD 10/18/2024 5:06 AM EDT [facility] HGB 9.6(L) 11.2 - 15.7 g/dL LAB HEMATOLOGY METHOD 10/18/2024 5:06 AM EDT [facility] HCT 29.9(L) 34.0 - 45.0 % LAB HEMATOLOGY METHOD 10/18/2024 5:06 AM EDT [facility] Platelet Count 54(L) 155 - 369 10*3/uL LAB HEMATOLOGY METHOD 10/18/2024 5:06 AM EDT [facility] MCV 93 79 - 98 fL LAB HEMATOLOGY METHOD 10/18/2024 5:06 AM EDT [facility] MCH 29.9 26.0 - 32.0 pg LAB HEMATOLOGY METHOD 10/18/2024 5:06 AM EDT [facility] MCHC 32.1 30.7 - 35.5 g/dL LAB HEMATOLOGY METHOD 10/18/2024 5:06 AM EDT [facility] RDW 15.0(H) 11.5 - 14.5 % LAB HEMATOLOGY METHOD 10/18/2024 5:06 AM EDT [facility] MPV 9.8 8.8 - 12.5 fL LAB HEMATOLOGY METHOD 10/18/2024 5:06 AM EDT [facility] nRBC 1.9(H) <=0.0 per 100 WBCs LAB HEMATOLOGY METHOD 10/18/2024 5:06 AM EDT [facility] Differential Type Manual LAB HEMATOLOGY METHOD 10/18/2024 5:06 AM EDT [facility] Blood Venous blood specimen / Unknown Venipuncture / Unknown 10/18/2024 3:46 AM EDT 10/18/2024 3:53 AM EDT Narrative [facility] - 10/18/2024 5:06 AM EDT [...] ORDERABLES F inal Result Performing Organization Address [facility] Co de Phone Number [facility] [address] [place] [address] * (ABNORMAL) POCT glucose meter (10/18/2024 3:35 [...] Comment 10/18/2024 3:37 AM EDT [facility] Inter Fold Roll Cutter ID Giorgio Kumar 3:37 AM EDT [facility]ALTH[facility] Device ID [id number] 10/18/2024 3:37 AM EDT [facility] Specimen Type POC Venous 10/18/2024 3:37 AM EDT [facility] Blood Venous blood specimen / Unknown 10/18/2024 3:35 AM EDT 10/18/2024 3:37 AM EDT us Unknown Claudia Cali MD LAB POINT OF C ARE TEST DOCKED DEVICE UNSOLICITED RESULTS Final Result Performing Organization Address City/[facility] Co de Phone Number [facility] [address] [place] [address] * (ABNORMAL) POCT glucose meter (10/17/2024 8:20 [...] for testing. Comment 10/17/2024 8:22 PM EDT [facility] Inter Fold Roll Cutter ID Joya Galicia 025 8:22 PM EDT [facility] Device ID [id number] 10/17/2024 8:22 PM EDT [facility] Specimen Type POC Capillary 10/17/2024 8:22 PM EDT [facility] Blood Capillary blood specimen / Unknown 10/17/2024 8:20 PM EDT 10/17/2024 8:22 PM EDT us Unknown Claudia Cali MD LAB POINT OF C ARE TEST DOCKED DEVICE UNSOLICITED RESULTS Final Result Performing Organization Address City/State/[facility] Co de Phone Number [facility] [address] [place] [address] * (ABNORMAL) POCT glucose meter (10/17/2024 6:01 PM EDT) [facility] POCT Glucose 244(H) 74 - 99 mg/dL [...] for testing. Comment 10/17/2024 6:03 PM EDT [facility] Inter Fold Roll Cutter ID Abril Duong 10/17/2024 6:03 PM EDT [facility] Device ID [id number] 10/17/2024 6:03 PM EDT [facility] Specimen Type POC Capillary 10/17/2024 6:03 PM EDT [facility] Blood Capillary blood specimen / Unknown 10/17/2024 6:01 PM EDT 10/17/2024 6:03 PM EDT us Unknown Claudia Cali MD LAB POINT OF C ARE TEST DOCKED DEVICE UNSOLICITED RESULTS Final Result Performing Organization Address [facility] Co de Phone Number [facility] [address] [place] [address] * (ABNORMAL) POCT glucose meter (10/17/2024 11:57 AM EDT) [facility] POCT Glucose 335(H) 74 - 99 mg/dL [...] Comment 10/17/2024 11:58 AM EDT [facility] Inter Fold Roll Cutter ID Abril Duong 10/17/2024 11:58 AM EDT [facility] Device ID [id number] 10/17/2024 11:58 AM EDT [facility] Specimen Type POC Capillary 10/17/2024 11:58 AM EDT [facility] Blood Capillary blood specimen / Unknown 10/17/2024 11:57 AM EDT 10/17/2024 11:58 AM EDT us Unknown Claudia Cali MD LAB POINT OF C ARE TEST DOCKED DEVICE UNSOLICITED RESULTS Final Result Performing Organization Address [facility] Co de Phone Number [facility] [address] [place] [address] * (ABNORMAL) POCT glucose meter (10/17/2024 8:18 AM EDT) [facility] POCT Glucose 215(H) 74 - 99 mg/dL [...] for testing. Comment 10/17/2024 8:19 AM EDT [facility] Inter Fold Roll Cutter ID Abril Duong 10/17/2024 8:19 AM EDT [facility] Device ID [id number] 10/17/2024 8:19 AM EDT [facility] Specimen Type POC Capillary 10/17/2024 8:19 AM EDT [facility] Blood Capillary blood specimen / Unknown 10/17/2024 8:18 AM EDT 10/17/2024 8:19 AM EDT us Unknown Claudia Cali MD LAB POINT OF C ARE TEST DOCKED DEVICE UNSOLICITED RESULTS Final Result Performing Organization Address City/[facility]/ZIP Co de Phone Number [facility] [address] [place] [address] * Morphology (10/17/2024 3:38 AM EDT) Elliptocytes/O valocytes Present LAB HEMATOLOGY METHOD 10/17/2024 5:33 AM EDT [facility] RBC Morphology Slide Reviewed LAB HEMATOLOGY METHOD 10/17/2024 5:33 AM EDT [facility] Platelet Estimate Platelet smear estimate consistent with automated count LAB HEMATOLOGY METHOD 10/17/2024 5:33 AM EDT [facility] Blood Venous blood specimen / Unknown Venipuncture / Unknown 10/17/2024 3:38 AM EDT 10/17/2024 4:02 AM EDT us Unknown Claudia Cali MD LAB BLOOD ORDERABLES F inal Result [facility] [address] [place] [id number] * (ABNORMAL) Manual Differential (10/17/2024 3:38 AM EDT) Blasts % 0 % LAB HEMATOLOGY METHOD 10/17/2024 5:33 AM EDT [facility] Promyelocytes % 0 % LAB HEMATOLOGY METHOD 10/17/2024 5:33 AM EDT [facility] Myelocytes % 3 % LAB HEMATOLOGY METHOD 10/17/2024 5:33 AM EDT [facility] Metamyelocytes % 2 % LAB HEMATOLOGY METHOD 10/17/2024 5:33 AM EDT [facility] Neutrophils % 66 % LAB HEMATOLOGY METHOD 10/17/2024 5:33 AM EDT [facility] Lymphocytes % 26 % LAB HEMATOLOGY METHOD 10/17/2024 5:33 AM EDT [facility] Reactive Lymphocytes % 1 % LAB HEMATOLOGY METHOD 10/17/2024 5:33 AM EDT [facility] Monocytes % 1 % LAB HEMATOLOGY METHOD 10/17/2024 5:33 AM EDT [facility] Eosinophils % 1 % LAB HEMATOLOGY METHOD 10/17/2024 5:33 AM EDT [facility] Basophils % 0 % LAB HEMATOLOGY METHOD 10/17/2024 5:33 AM EDT [facility] Blasts Absolute 0.00 10*3/UL LAB HEMATOLOGY METHOD 10/17/2024 5:33 AM EDT [facility] Promyelocytes Absolute 0.00 10*3/uL LAB HEMATOLOGY METHOD 10/17/2024 5:33 AM EDT [facility] Myelocytes Absolute 0.05 10*3/uL LAB HEMATOLOGY METHOD 10/17/2024 5:33 AM EDT [facility] Metamyelocytes Absolute 0.03 10*3/uL LAB HEMATOLOGY METHOD 10/17/2024 5:33 AM EDT [facility] Neutrophils Absolute 1.04(L) 1.60 - 6.10 10*3/uL LAB HEMATOLOGY METHOD 10/17/2024 5:33 AM EDT [facility] Lymphocytes Absolute 0.41(L) 1.20 - 3.90 10*3/uL LAB HEMATOLOGY METHOD 10/17/2024 5:33 AM EDT [facility] Reactive Lymphocytes Absolute 0.02 10*3/uL LAB HEMATOLOGY METHOD 10/17/2024 5:33 AM EDT [facility] Monocytes Absolute 0.02(L) 0.30 - 0.90 10*3/uL LAB HEMATOLOGY METHOD 10/17/2024 5:33 AM EDT [facility] Eosinophils Absolute 0.02 0.00 - 0.50 10*3/uL LAB HEMATOLOGY METHOD 10/17/2024 5:33 AM EDT [facility] Basophils Absolute 0.00 0.00 - 0.10 10*3/uL LAB HEMATOLOGY METHOD 10/17/2024 5:33 AM EDT [facility] Blood Venous blood specimen / Unknown Venipuncture / Unknown 10/17/2024 3:38 AM EDT 10/17/2024 4:02 AM EDT us Unknown Claudia Cali MD LAB BLOOD ORDERABLES F inal Result [facility] [address] [place] [address] * (ABNORMAL) CBC and Differential (10/17/2024 3:38 AM EDT) WBC Count 1.58(L) 3.70 - 10.30 10*3/uL LAB HEMATOLOGY METHOD 10/17/2024 5:33 AM EDT [facility] RBC Count 2.73(L) 3.90 - 5.20 10*6/uL LAB HEMATOLOGY METHOD 10/17/2024 5:33 AM EDT [facility] HGB 8.3(L) 11.2 - 15.7 g/dL LAB HEMATOLOGY METHOD 10/17/2024 5:33 AM EDT [facility] HCT 25.8(L) 34.0 - 45.0 % LAB HEMATOLOGY METHOD 10/17/2024 5:33 AM EDT [facility] Platelet Count 42(L) 155 - 369 10*3/uL LAB HEMATOLOGY METHOD 10/17/2024 5:33 AM EDT [facility] MCV 95 79 - 98 fL LAB HEMATOLOGY METHOD 10/17/2024 5:33 AM EDT [facility] MCH 30.4 26.0 - 32.0 pg LAB HEMATOLOGY METHOD 10/17/2024 5:33 AM EDT [facility] MCHC 32.2 30.7 - 35.5 g/dL LAB HEMATOLOGY METHOD 10/17/2024 5:33 AM EDT [facility] RDW 15.0(H) 11.5 - 14.5 % LAB HEMATOLOGY METHOD 10/17/2024 5:33 AM EDT [facility] MPV 9.9 8.8 - 12.5 fL LAB HEMATOLOGY METHOD 10/17/2024 5:33 AM EDT [facility] nRBC 3.2(H) <=0.0 per 100 WBCs LAB HEMATOLOGY METHOD 10/17/2024 5:33 AM EDT [facility] Differential Type Manual LAB HEMATOLOGY METHOD 10/17/2024 5:33 AM EDT [facility] Blood Venous blood specimen / Unknown Venipuncture / Unknown 10/17/2024 3:38 AM EDT 10/17/2024 4:02 AM EDT Narrative [facility] - 10/17/2024 5:33 AM EDT [...] MD LAB BLOOD ORDERABLES F inal Result [facility] [address] [place] [address] * (ABNORMAL) POCT glucose meter (10/17/2024 3:27 AM EDT) [facility] POCT Glucose 221(H) 74 - 99 mg/dL 10/17/2024 3:30 AM EDT [facility] Comment:Accuracy of a glucos e result [...] 10/17/2024 3:30 AM EDT [facility] Inter Fold Roll Cutter ID HerreraRamona 10/17/2024 3:30 AM EDT [facility] Device ID [id number] 10/17/2024 3:30 AM EDT [facility] Specimen Type POC Capillary 10/17/2024 3:30 AM EDT [facility] Blood Capillary blood specimen / Unknown 10/17/2024 3:27 AM EDT 10/17/2024 3:30 AM EDT us Unknown Claudia Cali MD LAB POINT OF C ARE TEST DOCKED DEVICE UNSOLICITED RESULTS Final Result Performing Organization Address City/[facility]/ZIP Co de Phone Number [facility] [address] [place] [address] * (ABNORMAL) POCT glucose meter (10/16/2024 8:09 PM EDT) POCT Glucose 342(H) 74 - 99 mg/dL [...] Comment 10/16/2024 8:11 PM EDT [facility] Inter Fold Roll Cutter ID HerreraRamona 10/16/2024 8:11 PM EDT [facility] Device ID [id number] 10/16/2024 8:11 PM EDT [facility] Specimen Type POC Capillary 10/16/2024 8:11 PM EDT [facility] Blood Capillary blood specimen / Unknown 10/16/2024 8:09 PM EDT 10/16/2024 8:11 PM EDT us Unknown Claudia Cali MD LAB POINT OF C ARE TEST DOCKED DEVICE UNSOLICITED RESULTS Final Result Performing Organization Address City/[facility]/ZIP Co de Phone Number [facility] [address] [place] [address] * (ABNORMAL) POCT glucose meter (10/16/2024 5:46 [...] for testing. Comment 10/16/2024 5:48 PM EDT [facility] Inter Fold Roll Cutter ID Sue Hernandez 10/17/19 5:48 PM EDT [facility] Device ID [id number] 10/16/2024 5:48 PM EDT [facility] Specimen Type POC Capillary 10/16/2024 5:48 PM EDT [facility] Blood Capillary blood specimen / Unknown 10/16/2024 5:46 PM EDT 10/16/2024 5:48 PM EDT us Unknown Claudia Cali MD LAB POINT OF C ARE TEST DOCKED DEVICE UNSOLICITED RESULTS Final Result Performing Organization Address City/State/[facility] Co de Phone Number [facility] [address] [place] [address] * (ABNORMAL) POCT glucose meter (10/16/2024 12:13 PM EDT) [facility] POCT Glucose 342(H) 74 - 99 mg/dL [...] for testing. Comment 10/16/2024 12:16 PM EDT [facility] Inter Fold Roll Cutter ID Quan Chavez 10/16/2024 12:16 PM EDT [facility] Device ID [id number] 10/16/2024 12:16 PM EDT [facility] Specimen Type POC Capillary 10/16/2024 12:16 PM EDT [facility] Blood Capillary blood specimen / Unknown 10/16/2024 12:13 PM EDT 10/16/2024 12:16 PM EDT us Unknown Claudia Cali MD LAB POINT OF C ARE TEST DOCKED DEVICE UNSOLICITED RESULTS Final Result Performing Organization Address City/[facility] Co de Phone Number [facility] [address] [place] [address] * (ABNORMAL) POCT glucose meter (10/16/2024 8:31 AM EDT) POCT Glucose 219(H) 74 - 99 mg/dL [...] Comment 10/16/2024 8:32 AM EDT [facility] Inter Fold Roll Cutter ID Erendira Christianson 10/17/19 8:32 AM EDT [facility] Device ID [id number] 10/16/2024 8:32 AM EDT [facility] Specimen Type POC Capillary 10/16/2024 8:32 AM EDT [facility] Blood Capillary blood specimen / Unknown 10/16/2024 8:31 AM EDT 10/16/2024 8:32 AM EDT us Unknown Claudia Cali MD LAB POINT OF C ARE TEST DOCKED DEVICE UNSOLICITED RESULTS Final Result Performing Organization Address City/[facility] Co de Phone Number [facility] [address] [place] [address] * (ABNORMAL) Comprehensive Metabolic Panel, Plasma (10/16/2024 5:49 AM EDT) Glucose, Plasma 232(H) 74 - 99 mg/dL 10/16/2024 6:35 AM EDT [facility] BUN, Plasma 16 8 - 23 mg/dL 10/16/2024 6:35 AM EDT [facility] Creatinine, Plasma 0.54(L) 0.60 - 1.10 mg/dL 10/16/2024 6:35 AM EDT [facility] BUN/Creatinine Ratio 30 10/16/2024 6:35 AM EDT [facility] Sodium, Plasma 141 136 - 145 mmol/L 10/16/2024 6:35 AM EDT [facility] Potassium, Plasma 4.2 3.6 - 4.9 mmol/L 10/16/2024 6:35 AM EDT [facility] Chloride, Plasma 109(H) 97 - 107 mmol/L 10/16/2024 6:35 AM EDT [facility] CO2, Plasma 23 22 - 29 mmol/L 10/16/2024 6:35 AM EDT [facility] Anion Gap 9 6 - 16 mmol/L 10/16/2024 6:35 AM EDT [facility] Total Calcium, Plasma 8.2(L) 8.9 - 10.2 mg/dL 10/16/2024 6:35 AM EDT [facility] Total Protein 5.8(L) 6.3 - 7.9 g/dL 10/16/2024 6:35 AM EDT [facility] Albumin, Plasma 3.0(L) 3.5 - 5.2 g/dL 10/16/2024 6:35 AM EDT [facility] AST, Plasma 15 10 - 35 U/L 10/16/2024 6:35 AM EDT [facility] ALT, Plasma 29 10 - 35 U/L 10/16/2024 6:35 AM EDT [facility] Alkaline Phosphatase, Plasma 77 46 - 142 U/L 10/16/2024 6:35 AM EDT [facility] Total Bilirubin, Plasma 0.3 0.2 - 1.1 mg/dL 10/16/2024 6:35 AM EDT [facility] eGFRcr 103.6 mL/min/1.7 3m*2 10/16/2024 6:35 AM EDT [facility] Comment:Reported eGFRcr in m L/min/1.73m2 is based the CKD-EPI 2020 equation that does not use a race coefficient. Blood Venous blood specimen / Unknown Venipuncture / Unknown 10/16/2024 5:49 AM EDT 10/16/2024 6:04 AM EDT us Hyacinth Perkins MD LAB BLOOD ORDERABLES Final Res ult [facility] [address] [place] [address] * (ABNORMAL) CBC and Differential (10/16/2024 5:49 AM EDT) WBC Count 0.68(LL) 3.70 - 10.30 10*3/uL LAB HEMATOLOGY METHOD 10/16/2024 11:48 AM EDT [facility] RBC Count 2.74(L) 3.90 - 5.20 10*6/uL LAB HEMATOLOGY METHOD 10/16/2024 11:48 AM EDT [facility] HGB 8.4(L) 11.2 - 15.7 g/dL LAB HEMATOLOGY METHOD 10/16/2024 11:48 AM EDT [facility] HCT 26.1(L) 34.0 - 45.0 % LAB HEMATOLOGY METHOD 10/16/2024 11:48 AM EDT [facility] Platelet Count 38(L) 155 - 369 10*3/uL LAB HEMATOLOGY METHOD 10/16/2024 11:48 AM EDT [facility] MCV 95 79 - 98 fL LAB HEMATOLOGY METHOD 10/16/2024 11:48 AM EDT [facility] MCH 30.7 26.0 - 32.0 pg LAB HEMATOLOGY METHOD 10/16/2024 11:48 AM EDT [facility] MCHC 32.2 30.7 - 35.5 g/dL LAB HEMATOLOGY METHOD 10/16/2024 11:48 AM EDT [facility] RDW 15.0(H) 11.5 - 14.5 % LAB HEMATOLOGY METHOD 10/16/2024 11:48 AM EDT [facility] MPV 9.4 8.8 - 12.5 fL LAB HEMATOLOGY METHOD 10/16/2024 11:48 AM EDT [facility] nRBC 4.4(H) <=0.0 per 100 WBCs LAB HEMATOLOGY METHOD 10/16/2024 11:48 AM EDT [facility] Differential Type Automated LAB HEMATOLOGY METHOD 10/16/2024 11:48 AM EDT [facility] Neutrophils % LAB HEMATOLOGY METHOD 10/16/2024 11:48 AM EDT [facility] Lymphocytes % LAB HEMATOLOGY METHOD 10/16/2024 11:48 AM EDT [facility] Monocytes % LAB HEMATOLOGY METHOD 10/16/2024 11:48 AM EDT [facility] Eosinophils % LAB HEMATOLOGY METHOD 10/16/2024 11:48 AM EDT [facility] Basophils % LAB HEMATOLOGY METHOD 10/16/2024 11:48 AM EDT [facility] Immature Granulocytes % LAB HEMATOLOGY METHOD 10/16/2024 11:48 AM EDT [facility] Neutrophils Absolute LAB HEMATOLOGY METHOD 10/16/2024 11:48 AM EDT [facility] Lymphocytes Absolute LAB HEMATOLOGY METHOD 10/16/2024 11:48 AM EDT [facility] Monocytes Absolute LAB HEMATOLOGY METHOD 10/16/2024 11:48 AM EDT [facility] Eosinophils Absolute LAB HEMATOLOGY METHOD 10/16/2024 11:48 AM EDT [facility] Basophils Absolute LAB HEMATOLOGY METHOD 10/16/2024 11:48 AM EDT [facility] Immature Granulocytes Absolute LAB HEMATOLOGY METHOD 10/16/2024 11:48 AM EDT [facility] Blood Venous blood specimen / Unknown Venipuncture / Unknown 10/16/2024 5:49 AM EDT 10/16/2024 6:04 AM EDT Narrative [facility] - 10/16/2024 11:48 AM EDT Therapeutic decision making should be based on absolute values, rather than percentages. us Hyacinth Perkins MD LAB BLOOD ORDERABLES Final Res ult [facility] [address] [place] [address] * (ABNORMAL) Vancomycin, Trough, Plasma Please draw ~30 minutes prior to dose due at 0600 on 10/16/24. Please do NOT hold dose awaiting level to return. Consider obtaining level via peripheral stick. If peripheral stick is not feasible, please ensure that line ... (10/16/2024 5:49 AM EDT) Vancomycin, Trough, Plasma 5.8(L) 10.0 - 20.0 ug/mL 10/16/2024 6:34 AM EDT [facility] Blood Venous blood specimen / Unknown Venipuncture / Unknown 10/16/2024 5:49 AM EDT 10/16/2024 6:04 AM EDT Narrative [facility] - 10/16/2024 6:34 AM EDT Therapeutic Trough level: 10-20ug/mL Supra-therapeutic Trough level: >20 ug/mL us Unknown Claudia Cali MD LAB BLOOD ORDERABLES F inal Result Performing Organization Address City/[facility] Co de Phone Number [facility] [address] [place] [address] * (ABNORMAL) POCT glucose meter (10/16/2024 3:37 AM EDT) [facility] POCT Glucose 233(H) 74 - 99 mg/dL 10/16/2024 3:39 AM EDT [facility] Comment:Accuracy of [...] for testing. Comment 10/16/2024 3:39 AM EDT [facility] Inter Fold Roll Cutter ID Halle House 10/16/2024 3:39 AM EDT [facility] Device ID [id number] 10/16/2024 3:39 AM EDT [facility] Specimen Type POC Capillary 10/16/2024 3:39 AM EDT [facility] Blood Capillary blood specimen / Unknown 10/16/2024 3:37 AM EDT 10/16/2024 3:39 AM EDT us Unknown Claudia Cali MD LAB POINT OF C ARE TEST DOCKED DEVICE UNSOLICITED RESULTS Final Result Performing Organization Address City/[facility]/ZIP Co de Phone Number [facility] [address] [place] [address] * ECG Adult (10/15/2024 10:43 PM EDT) EKG DIAGNOSIS CLASS Abnormal MUSE ECG Ventricular Rate 146 BPM MUSE ECG QRSD Interval 88 ms MUSE ECG QT Interval 288 ms MUSE ECG QTC Interval 448 ms MUSE ECG R [place] 39 degrees MUSE ECG T Wave [place] 68 degrees MUSE ECG Diagnosis Atrial fibrillation [...] POCT glucose meter (10/15/2024 8:48 PM EDT) Pathologist [facility] POCT Glucose 312(H) 74 - 99 mg/dL [...] 10/15/2024 8:49 PM EDT [facility] Inter Fold Roll Cutter ID Gladys Steele 8:49 PM EDT [facility] Device ID [id number] 10/15/2024 8:49 PM EDT [facility] Specimen Type POC Capillary 10/15/2024 8:49 PM EDT [facility] Blood Capillary blood specimen / Unknown 10/15/2024 8:48 PM EDT 10/15/2024 8:49 PM EDT us Unknown Claudia Cali MD LAB POINT OF C ARE TEST DOCKED DEVICE UNSOLICITED RESULTS Final Result Performing Organization Address City/[facility]/ZIP Co de Phone Number [facility] [address] [place] [address] * (ABNORMAL) POCT glucose meter (10/15/2024 5:43 [...] for testing. Comment 10/15/2024 5:44 PM EDT [facility] Inter Fold Roll Cutter ID Sophia Stokes 5:44 PM EDT [facility] Device ID [id number] 10/15/2024 5:44 PM EDT [facility] Specimen Type POC Capillary 10/15/2024 5:44 PM EDT [facility] Blood Capillary blood specimen / Unknown 10/15/2024 5:43 PM EDT 10/15/2024 5:44 PM EDT us Unknown Claudia Cali MD LAB POINT OF C ARE TEST DOCKED DEVICE UNSOLICITED RESULTS Final Result Performing Organization Address City/State/[facility] Co de Phone Number [facility] [address] [place] [id number] * PERIPHERAL IV (SMART[employer] LINK) (10/15/2024 2:18 [...] POCT glucose meter (10/15/2024 12:20 PM EDT) [facility] POCT Glucose 287(H) 74 - 99 mg/dL [...] Comment 10/15/2024 12:22 PM EDT [facility] Inter Fold Roll Cutter ID Sophia Stokes 12:22 PM EDT [facility] Device ID [id number] 10/15/2024 12:22 PM EDT [facility] Specimen Type POC Capillary 10/15/2024 12:22 PM EDT [facility] Blood Capillary blood specimen / Unknown 10/15/2024 12:20 PM EDT 10/15/2024 12:22 PM EDT us Unknown Claudia Cali MD LAB POINT OF C ARE TEST DOCKED DEVICE UNSOLICITED RESULTS Final Result [facility] [address] [place] [address] * (ABNORMAL) POCT glucose meter (10/15/2024 7:22 AM EDT) [facility] POCT Glucose 221(H) 74 - 99 mg/dL [...] for testing. Comment 10/15/2024 8:03 AM EDT [facility] Inter Fold Roll Cutter ID Sophia Stokes 8:03 AM EDT [facility] Device ID [id number] 10/15/2024 8:03 AM EDT [facility] Specimen Type POC Capillary 10/15/2024 8:03 AM EDT [facility] Blood Capillary blood specimen / Unknown 10/15/2024 7:22 AM EDT 10/15/2024 8:03 AM EDT us Unknown Claudia Cali MD LAB POINT OF C ARE TEST DOCKED DEVICE UNSOLICITED RESULTS Final Result [facility] [address] [place] [address] * (ABNORMAL) Comprehensive Metabolic Panel, Plasma (10/15/2024 4:19 AM EDT) Glucose, Plasma 242(H) 74 - 99 mg/dL 10/15/2024 5:12 AM EDT [facility] BUN, Plasma 20 8 - 23 mg/dL 10/15/2024 5:12 AM EDT [facility] Creatinine, Plasma 0.64 0.60 - 1.10 mg/dL 10/15/2024 5:12 AM EDT [facility] BUN/Creatinine Ratio 31 10/15/2024 5:12 AM EDT [facility] Sodium, Plasma 137 136 - 145 mmol/L 10/15/2024 5:12 AM EDT [facility] Potassium, Plasma 4.3 3.6 - 4.9 mmol/L 10/15/2024 5:12 AM EDT [facility] Chloride, Plasma 106 97 - 107 mmol/L 10/15/2024 5:12 AM EDT [facility] CO2, Plasma 21(L) 22 - 29 mmol/L 10/15/2024 5:12 AM EDT [facility] Anion Gap 10 6 - 16 mmol/L 10/15/2024 5:12 AM EDT [facility] Total Calcium, Plasma 7.5(L) 8.9 - 10.2 mg/dL 10/15/2024 5:12 AM EDT [facility] Total Protein 5.2(L) 6.3 - 7.9 g/dL 10/15/2024 5:12 AM EDT [facility] Albumin, Plasma 2.8(L) 3.5 - 5.2 g/dL 10/15/2024 5:12 AM EDT [facility] AST, Plasma 17 10 - 35 U/L 10/15/2024 5:12 AM EDT [facility] ALT, Plasma 24 10 - 35 U/L 10/15/2024 5:12 AM EDT [facility] Alkaline Phosphatase, Plasma 72 46 - 142 U/L 10/15/2024 5:12 AM EDT [facility] Total Bilirubin, Plasma 0.3 0.2 - 1.1 mg/dL 10/15/2024 5:12 AM EDT [facility] eGFRcr 99.4 mL/min/1.7 3m*2 10/15/2024 5:12 AM EDT [facility] Comment:Reported eGFRcr in m L/min/1.73m2 is based the CKD-EPI 2020 equation that does not use a race coefficient. Blood Venous blood specimen / Unknown Venipuncture / Unknown 10/15/2024 4:19 AM EDT 10/15/2024 4:41 AM EDT us Hyacinth Perkins MD LAB BLOOD ORDERABLES Final Res ult [facility] [address] [place] [address] * (ABNORMAL) CBC and Differential (10/15/2024 4:19 AM EDT) WBC Count 0.45(LL) 3.70 - 10.30 10*3/uL LAB HEMATOLOGY METHOD 10/15/2024 5:48 AM EDT [facility] RBC Count 2.71(L) 3.90 - 5.20 10*6/uL LAB HEMATOLOGY METHOD 10/15/2024 5:48 AM EDT [facility] HGB 8.2(L) 11.2 - 15.7 g/dL LAB HEMATOLOGY METHOD 10/15/2024 5:48 AM EDT [facility] HCT 26.2(L) 34.0 - 45.0 % LAB HEMATOLOGY METHOD 10/15/2024 5:48 AM EDT [facility] Platelet Count 43(L) 155 - 369 10*3/uL LAB HEMATOLOGY METHOD 10/15/2024 5:48 AM EDT [facility] MCV 97 79 - 98 fL LAB HEMATOLOGY METHOD 10/15/2024 5:48 AM EDT [facility] MCH 30.3 26.0 - 32.0 pg LAB HEMATOLOGY METHOD 10/15/2024 5:48 AM EDT [facility] MCHC 31.3 30.7 - 35.5 g/dL LAB HEMATOLOGY METHOD 10/15/2024 5:48 AM EDT [facility] RDW 14.9(H) 11.5 - 14.5 % LAB HEMATOLOGY METHOD 10/15/2024 5:48 AM EDT [facility] MPV 10.5 8.8 - 12.5 fL LAB HEMATOLOGY METHOD 10/15/2024 5:48 AM EDT [facility] nRBC 0.0 <=0.0 per 100 WBCs LAB HEMATOLOGY METHOD 10/15/2024 5:48 AM EDT [facility] Differential Type Automated LAB HEMATOLOGY METHOD 10/15/2024 5:48 AM EDT [facility] Neutrophils % 7 % LAB HEMATOLOGY METHOD 10/15/2024 5:48 AM EDT [facility] Lymphocytes % 82 % LAB HEMATOLOGY METHOD 10/15/2024 5:48 AM EDT [facility] Monocytes % 9 % LAB HEMATOLOGY METHOD 10/15/2024 5:48 AM EDT [facility] Eosinophils % 2 % LAB HEMATOLOGY METHOD 10/15/2024 5:48 AM EDT [facility] Basophils % 0 % LAB HEMATOLOGY METHOD 10/15/2024 5:48 AM EDT [facility] Immature Granulocytes % 0 % LAB HEMATOLOGY METHOD 10/15/2024 5:48 AM EDT [facility] Neutrophils Absolute 0.03(LL) 1.60 - 6.10 10*3/uL LAB HEMATOLOGY METHOD 10/15/2024 5:48 AM EDT [facility] Comment:Marked Leukopenia. A utomated Differential verified by slide scan. Lymphocytes Absolute 0.37(L) 1.20 - 3.90 10*3/uL LAB HEMATOLOGY METHOD 10/15/2024 5:48 AM EDT [facility] Monocytes Absolute 0.04(L) 0.30 - 0.90 10*3/uL LAB HEMATOLOGY METHOD 10/15/2024 5:48 AM EDT [facility] Eosinophils Absolute 0.01 0.00 - 0.50 10*3/uL LAB HEMATOLOGY METHOD 10/15/2024 5:48 AM EDT [facility] Basophils Absolute 0.00 0.00 - 0.10 10*3/uL LAB HEMATOLOGY METHOD 10/15/2024 5:48 AM EDT [facility] Immature Granulocytes Absolute 0.00 0.00 - 0.06 10*3/uL LAB HEMATOLOGY METHOD 10/15/2024 5:48 AM EDT [facility] Blood Venous blood specimen / Unknown Venipuncture / Unknown 10/15/2024 4:19 AM EDT 10/15/2024 4:43 AM EDT Narrative [facility] - 10/15/2024 5:48 AM EDT Therapeutic decision making should be based on absolute values, rather than percentages. us Hyacinth Perkins MD LAB BLOOD ORDERABLES Final Res ult [facility] [address] [place] [address] * ECG Adult (10/14/2024 8:37 PM EDT) EKG DIAGNOSIS CLASS Abnormal MUSE ECG Ventricular Rate 140 BPM MUSE ECG QRSD Interval 86 ms MUSE ECG QT Interval 292 ms MUSE ECG QTC Interval 445 ms MUSE ECG R [place] -4 degrees MUSE ECG T Wave [place] 44 degrees MUSE ECG Diagnosis Atrial fibrillation [...] POCT glucose meter (10/14/2024 8:20 PM EDT) [facility] POCT Glucose 213(H) 74 - 99 mg/dL [...] 10/14/2024 8:22 PM EDT [facility] Inter Fold Roll Cutter ID Debbi Cantu 10/14/2024 8:22 PM EDT [facility] Device ID [id number] 10/14/2024 8:22 PM EDT [facility] Specimen Type POC Capillary 10/14/2024 8:22 PM EDT [facility] Blood Capillary blood specimen / Unknown 10/14/2024 8:20 PM EDT 10/14/2024 8:22 PM EDT Hyacinth Perkins MD LAB POINT OF CARE TE ST DOCKED DEVICE UNSOLICITED RESULTS Final Result Performing Organization Address City/State/[facility] Co de Phone Number [facility] [address] [place] [address] * (ABNORMAL) POCT glucose meter (10/14/2024 5:49 PM EDT) [facility] POCT Glucose 203(H) 74 - 99 mg/dL [...] 10/14/2024 5:51 PM EDT [facility] Inter Fold Roll Cutter ID Cynthia Meza 025 5:51 PM EDT [facility] Device ID [id number] 10/14/2024 5:51 PM EDT [facility] Specimen Type POC Capillary 10/14/2024 5:51 PM EDT [facility] Blood Capillary blood specimen / Unknown 10/14/2024 5:49 PM EDT 10/14/2024 5:51 PM EDT us Hyacinth Perkins MD LAB POINT OF CARE TE ST DOCKED DEVICE UNSOLICITED RESULTS Final Result Performing Organization Address [facility] de Phone Number [facility] [address] [place] [address] * (ABNORMAL) Vancomycin, Peak, Plasma Please draw ~2 hours after 0600 dose of vancomycin administeredon 10/14/24 finishes infusing. Consider obtaining level via peripheral stick. If peripheral stick isnot feasible, please ensure that line is flushed well prio... (10/14/2024 2:33 PM EDT) Vancomycin, Peak, Plasma 9.2(L) 20.0 - 40.0 ug/mL 10/14/2024 3:56 PM EDT [facility] Blood Venous blood specimen / Unknown Venipuncture / Unknown 10/14/2024 2:33 PM EDT 10/14/2024 2:39 PM EDT Narrative [facility] - 10/14/2024 3:56 PM EDT Therapeutic Peak level: 20-40ug/mL Supra-therapeutic Peak level: >40 ug/mL us Hyacinth Perkins MD LAB BLOOD ORDERABLES Final Res ult Performing Organization Address [facility] de Phone Number [facility] [address] [place] [address] * (ABNORMAL) Prothrombin Time/INR (10/14/2024 11:06 AM EDT) Prothrombin Time 14.9(H) 12.0 - 14.3 sec LAB COAGULATION METHOD 10/14/2024 11:45 AM EDT [facility] INR 1.2(H) 0.9 - 1.1 LAB COAGULATION METHOD 10/14/2024 11:45 AM EDT [facility] Blood Venous blood specimen / Unknown Venipuncture / Unknown 10/14/2024 11:06 AM EDT 10/14/2024 11:25 AM EDT Narrative [facility] - 10/14/2024 11:45 AM EDT OPTIMAL INR RANGES FOR PATIENT ON ORAL ANTICOAGULANT THERAPY Prevention of venous thromboembolism INR 2.0 to 3.0 In patients with heart disease: Atrial fibrillation INR 2.0 to 3.0 Valvular heart disease INR 2.0 to 3.0 Tissue heart valves INR 2.0 to 3.0 Mechanical prosthetic valves INR 2.5 to 3.5 Prevention of recurrent ID INR 2.5 to 3.5 us Lisa RAMOS LAB BLOOD ORDERABLES Final Re sult [facility] [address] [place] [address] * PERIPHERAL IV (SMARTFORM LINK) (10/14/2024 10:55 [...] Transparent semipermeable dressing Education provided to: Patient Hyacinth Perkins MD IV THERAPY ORDERABLES Final [...] AM COMPARISON: MR head reviewed from 10/09/24. HELP DESK CONSULTANT: Lisa Romano PA-C SECONDARY PARTNER MARKETING MANAGER: Dr. Gaby Ponce CONTRAST: 0 cc [...] AM COMPARISON: MR head reviewed from 10/09/24. HELP DESK CONSULTANT: Lisa Romano PA-C SECONDARY PARTNER MARKETING MANAGER: Dr. Gaby Ponce CONTRAST: 0 cc [...] signing this report, I, the attending physician, attmaluat I have personally reviewed the images/data for [...] Detected Not Detected 10/14/2024 3:51 PM EDT [facility] Haemophilus influenzae PCR Result Not Detected Not Detected 10/14/2024 3:51 PM EDT [facility] Listeria monocytogenes PCR Result Not Detected Not Detected 10/14/2024 3:51 PM EDT [facility] Neisseria meningitidis PCR Result Not Detected Not Detected 10/14/2024 3:51 PM EDT [facility] Streptococcus agalactiae PCR Result Not Detected Not Detected 10/14/2024 3:51 PM EDT [facility] Streptococcus pneumoniae PCR Result Not Detected Not Detected 10/14/2024 3:51 PM EDT [facility] Cytomegalovirus (CMV) PCR Result Not Detected Not Detected 10/14/2024 3:51 PM EDT [facility] Enterovirus (EV) PCR Result Not Detected Not Detected 10/14/2024 3:51 PM EDT [facility] Herpes Simplex Virus 1 (HSV-1) PCR Result Not Detected Not Detected 10/14/2024 3:51 PM EDT [facility] Herpes Simplex Virus 2 (HSV-2) PCR Result Not Detected Not Detected 10/14/2024 3:51 PM EDT [facility] Human Herpes Virus 6 (HHV-6) PCR Result Not Detected Presumptive Negative 10/14/2024 3:51 PM EDT [facility] Human Parechovirus (HPeC) PCR Result Not Detected Not Detected 10/14/2024 3:51 PM EDT [facility] Varicella Zoster Virus (VZV) PCR Result Not Detected Not Detected 10/14/2024 3:51 PM EDT [facility] Cryptococcus neoformans/gattii PCR Result Not Detected Not Detected 10/14/2024 3:51 PM EDT [facility] Cerebrospinal Fluid Lumbar puncture / Unknown Non-blood Collection / Unknown 10/14/2024 10:24 AM EDT 10/14/2024 10:55 AM EDT Narrative [facility] - 10/14/2024 3:51 PM EDT [...] on test performance has not been evaluated. Hyacinth Perkins MD LAB MICROBIOLOGY - GENERAL ORD ERABLES Final Result Performing Organization Address City/[facility] Co de Phone Number [facility] [address] [place] [address] * Fungal Culture, Cerebrospinal Fluid (CSF) and Emily Ink (10/14/2024 10:24 AM EDT) Culture No Fungal Growth at 3 Weeks 11/04/2024 10:05 AM EDT [facility] Emily Ink No fungal elements seen 11/04/2024 10:05 AM EDT [facility] Cerebrospinal Fluid Lumbar puncture / Unknown Non-blood Collection / Unknown 10/14/2024 10:24 AM EDT 10/14/2024 10:55 AM EDT Hyacinth Perkins MD LAB MICROBIOLOGY - GENERAL ORD ERABLES Final Result Performing Organization Address City/[facility]/ZIP Co de Phone Number [facility] [address] [place] [address] * Cryptococcal Antigen, CSF (10/14/2024 10:24 AM EDT) Cryptococcal Antigen Result (CSF) Negative Negative 10/14/2024 3:50 PM EDT [facility] Cerebrospinal Fluid Lumbar puncture / Unknown Non-blood Collection / Unknown 10/14/2024 10:24 AM EDT 10/14/2024 10:55 AM EDT Hyacinth Perkins MD LAB MICROBIOLOGY - GENERAL ORD ERABLES Final Result Performing Organization Address [facility] Co de Phone Number [facility] [address] [place] [address] * Cerebrospinal Fluid (CSF) Culture and Gram Stain (10/14/2024 10:24 AM EDT) Pathologist [facility] Culture No growth at day 4 2024 8:24 AM EDT [facility] Gram Stain No polymorphonuclear leukocytes seen 10/17/2024 8:24 AM EDT [facility] Gram Stain No organisms seen 025 8:24 AM EDT [facility] Cerebrospinal Fluid Lumbar puncture / Unknown Non-blood Collection / Unknown 10/14/2024 10:24 AM EDT 10/14/2024 10:55 AM EDT us Hyacinth Perkins MD LAB MICROBIOLOGY - GENERAL ORD ERABLES Final Result Performing Organization Address [facility] [place] [address] * HUYEN Polyoma Virus Quantitative by PCR, CSF (10/14/2024 10:24 AM EDT) Pathologist [facility] HUYEN POLYOMA VIRUS DNA, QN,CSF Not Detected Not Detected copies/mL 10/15/2024 6:34 PM EDT [employer] Comment: Assay Range: 72 copies/mL to 1.00E+08 copies/mL The limit of quantitation (LOQ) is 72 copies/mL. HUYEN virus DNA detected below the LOQ will be reported as Detected:<72 copies/mL. This test was developed and its performance characteristics determined by [employer]. It has not been cleared or approved by the U.S. Food and Drug Administration. Results should be used in conjunction with clinical findings, and should not form the sole basis for a diagnosis or treatment decision. Testing Performed at: [facility] [address] [place] [address] [address] [place] [address] Supervisor Screen Printing: Anatoly Turk PhD [employer] (ABB) CLIA # [id number] FLAG Interpretation: A = Abnormal, H = High, L = Low Cerebrospinal Fluid Cerebrospinal fluid specimen / Unknown Non-blood Collection / Unknown 10/14/2024 10:24 AM EDT 10/14/2024 11:01 AM EDT Narrative [facility]) - 10/15/2024 6:34 PM EDT Release to patient in [facility]->Immediate Hyacinth Perkins MD LAB BODY FLUIDS AND STOOLS ORD ERABLES Final Result [facility]) * MADINA ALAMNZA DNA BY PCR(CSF) (SO) (10/14/2024 10:24 AM EDT) Madina Almanza PCR CSF Not Detected Not Detected IU/mL 10/15/2024 8:27 PM EDT [facility]) Comment: Assay Range: 52 IU/mL to 1.69E+08 IU/mL The limit of quantitation (LOQ) is 52 IU/mL. EBV DNA detected below the LOQ will be reported as Detected:<52 IU/mL. This test was developed and its performance characteristics determined by [employer]. It has not been cleared or approved by the U.S. Food and Drug Administration. Results should be used in conjunction with clinical findings, and should not form the sole basis for a diagnosis or treatment decision. Testing Performed at: [facility] [address] [place] [id number] Supervisor Screen Printing: Anatoly Turk, PhD [employer] (ABB) CLIA # [id number] FLAG Interpretation: A = Abnormal, H = High, L = Low Cerebrospinal Fluid Cerebrospinal fluid specimen / Unknown Non-blood Collection / Unknown 10/14/2024 10:24 AM EDT 10/14/2024 11:01 AM EDT [facility]) - 10/15/2024 8:27 PM EDT Release to patient in [facility]->Immediate Hyacinth Perkins MD LAB BODY FLUIDS AND STOOLS ORD ERABLES Final Result [facility]) * West Nile virus, CSF (10/14/2024 10:24 AM EDT) WEST NILE VIRUS AB,IGG,CSF 0.01 <=1.29 IV 10/17/2024 7:33 AM EDT [facility] (ALEX) WEST NILE VIRUS AB,IGM,CSF 0.00 <=0.89 IV 10/17/2024 7:33 AM EDT [facility] (ALEX) Cerebrospinal Fluid Cerebrospinal fluid specimen / Unknown Non-blood Collection / Unknown 10/14/2024 10:24 AM EDT 10/14/2024 11:01 AM EDT Narrative [facility] (ALEX) - 10/17/2024 7:33 AM EDT INTERPRETIVE [...] members of the Flaviviridae family, such as Saguache encephalitis virus, show extensive cross-reactivity with West [...] developed and its performance characteristics determined by [facility]. It has not been cleared or approved [...] members of the Flaviviridae family, such as Saguache encephalitis virus, show extensive cross-reactivity with West [...] developed and its performance characteristics determined by [facility]. It has not been cleared or approved by the [place] Food and Drug Administration. This test was performed in a CLIA certified laboratory and is intended for clinical purposes. Performed By: [facility] [address] [place] [address] Tuber Operator: Manuel Mas MD, PhD CLIA Number: [id number] Hyacinth Perkins MD LAB BLOOD ORDERABLES Final Res ult [facility] (ALEX) [address] [place] [address] * Lactate Dehydrogenase Total, Body Fluid (SO) (10/14/2024 10:24 AM EDT) Lactate Dehydrogenase Total, Body Fluid 21 U/L 10/16/2024 12:07 AM EDT [facility] (ALEX) LDH Fluid Source CSF 10/17/19 12:07 AM EDT [facility] (AL[facility]) Cerebrospinal Fluid Non-blood Collection / Unknown 10/14/2024 10:24 AM EDT 10/14/2024 11:01 AM EDT Narrative [facility] ([facility]) - 10/16/2024 12:07 AM EDT INTERPRETIVE INFORMATION: Lactate Dehydrogenase Total, Body Fluid For information on body fluid reference ranges and/or interpretive guidance visit [email or web address]/bodyfluids/ This test was developed and its performance characteristics determined by [facility]. It has not been cleared or approved by the US Food and Drug Administration. This test was performed in a CLIA certified laboratory and is intended for clinical purposes. Performed By: [facility] [address] [place] [address] Tuber Operator: Manuel Mas MD, PhD CLIA Number: [id number] Hyacinth Perkins MD LAB REF LAB BLOOD AND FLUID OR D Final Result [facility] (ALEX) [address] [place] [address] * Protein, CSF (10/14/2024 10:24 AM EDT) Total Protein, CSF 31 15 - 45 mg/dL 10/14/2024 12:15 PM EDT [facility] Cerebrospinal Fluid Lumbar puncture / Unknown Non-blood Collection / Unknown 10/14/2024 10:24 AM EDT 10/14/2024 11:01 AM EDT Narrative [facility] - 10/14/2024 12:15 PM EDT Blood, when present in CSF, invalidates protein. Interpret results in the context of the patient's condition and other laboratory results. Hyacinth Perkins MD LAB BODY FLUIDS AND STOOLS ORD ERABLES Final Result [facility] [address] [place] [address] * (ABNORMAL) Glucose, CSF (10/14/2024 10:24 AM EDT) Glucose, CSF 89(H) 41 - 70 mg/dL 10/14/2024 12:15 PM EDT [facility] Cerebrospinal Fluid Lumbar puncture / Unknown Non-blood Collection / Unknown 10/14/2024 10:24 AM EDT 10/14/2024 11:01 AM EDT Narrative [facility] - 10/14/2024 12:15 PM EDT CSF glucose values should be approximately 60 % of the plasma values and must always be compared with concurrently measured plasma values for adequate clinical interpretation. No reference ranges have been established for pediatric patients. us Hyacinth Perkins MD LAB BODY FLUIDS AND STOOLS ORD ERABLES Final Result [facility] [address] [place] [address] * CSF Cell Count W/O Diff (10/14/2024 10:24 AM EDT) Unspun Color, CSF Colorless Colorless LAB HEMATOLOGY METHOD 10/14/2024 12:10 PM EDT [facility] Unspun Clarity, CSF Clear Clear LAB HEMATOLOGY METHOD 10/14/2024 12:10 PM EDT [facility] Spun Color, CSF LAB HEMATOLOGY METHOD 10/14/2024 12:10 PM EDT [facility] Comment:Test Not Indicated Spun Clarity, CSF LAB HEMATOLOGY METHOD 10/14/2024 12:10 PM EDT [facility] Comment:Test Not Indicated Volume CSF 3.0 cc LAB HEMATOLOGY METHOD 10/14/2024 12:10 PM EDT [facility] Tube Number, CSF Tube 1 LAB HEMATOLOGY METHOD 10/14/2024 12:10 PM EDT [facility] Total Nucleated Cell Count, CSF 2 0 - 5 L LAB HEMATOLOGY METHOD 10/14/2024 12:10 PM EDT [facility] Comment:Test performed by cecy mcmullen method. Red Blood Cell Count, CSF 1 0 uL uL LAB HEMATOLOGY METHOD 10/14/2024 12:10 PM EDT [facility] Comment:Test performed by ma nual method. Cerebrospinal Fluid Lumbar puncture / Unknown Non-blood Collection / Unknown 10/14/2024 10:24 AM EDT 10/14/2024 10:59 AM EDT us Hyacinth Perkins MD LAB BODY FLUIDS AND STOOLS ORD ERABLES Final Result [facility] [address] [place] [address] * CSF Cell Count w/ Manual Differential (10/14/2024 10:24 AM EDT) Unspun Color, CSF Colorless Colorless LAB HEMATOLOGY METHOD 10/14/2024 12:19 PM EDT [facility] Unspun Clarity, CSF Clear Clear LAB HEMATOLOGY METHOD 10/14/2024 12:19 PM EDT [facility] Spun Color, CSF LAB HEMATOLOGY METHOD 10/14/2024 12:19 PM EDT [facility] Comment:Test Not Indicated Spun Clarity, CSF LAB HEMATOLOGY METHOD 10/14/2024 12:19 PM EDT [facility] Comment:Test Not Indicated Volume CSF 4.0 cc LAB HEMATOLOGY METHOD 10/14/2024 12:19 PM EDT [facility] Tube Number, CSF Tube 4 LAB HEMATOLOGY METHOD 10/14/2024 12:19 PM EDT [facility] Red Blood Cell Count, CSF 0 0 uL uL LAB HEMATOLOGY METHOD 10/14/2024 12:19 PM EDT [facility] Comment:Test performed by ma nual method. Total Nucleated Cell Count, CSF 2 0 - 5 L LAB HEMATOLOGY METHOD 10/14/2024 12:19 PM EDT [facility] Comment:Test performed by ma nual method. Neutrophils %, CSF LAB HEMATOLOGY METHOD 10/14/2024 12:19 PM EDT [facility] Comment:Too few to count Lymphocytes %, CSF LAB HEMATOLOGY METHOD 10/14/2024 12:19 PM EDT [facility] Comment:Too few to count Monocytes/Macro phages %, CSF LAB HEMATOLOGY METHOD 10/14/2024 12:19 PM EDT [facility] Comment:Too few to count Eosinophils %, CSF LAB HEMATOLOGY METHOD 10/14/2024 12:19 PM EDT [facility] Comment:Too few to count Basophils %, CSF LAB HEMATOLOGY METHOD 10/14/2024 12:19 PM EDT [facility] Comment:Too few to count Neutrophils Absolute, CSF LAB HEMATOLOGY METHOD 10/14/2024 12:19 PM EDT [facility] Comment:Too few to count Lymphocytes Absolute, CSF LAB HEMATOLOGY METHOD 10/14/2024 12:19 PM EDT [facility] Comment:Too few to count Monocytes/Macro phages Absolute, CSF LAB HEMATOLOGY METHOD 10/14/2024 12:19 PM EDT [facility] Comment:Too few to count Eosinophils Absolute, CSF LAB HEMATOLOGY METHOD 10/14/2024 12:19 PM EDT [facility] Comment:Too few to count Basophils Absolute, CSF LAB HEMATOLOGY METHOD 10/14/2024 12:19 PM EDT [facility] Comment:Too few to count Cerebrospinal Fluid Lumbar puncture / Unknown Non-blood Collection / Unknown 10/14/2024 10:24 AM EDT 10/14/2024 10:59 AM EDT us Hyacinth Perkins MD LAB BODY FLUIDS AND STOOLS ORD ERABLES Final Result [facility] [address] [place] [address] * Non-Gynecologic Cytology (10/14/2024 10:24 AM EDT) Case Report Cytology Case: [id number] Authorizing Provider: Hyacinth Perkins MD Collected: 10/14/2024 1024 Ordering Location: [facility] A Emergency Department Received: 10/14/2024 1353 Pathologist: Miryam Navarro MD Specimen: Cerebrospinal Fluid, CEREBROSPINAL FLUID 10/17/2024 4:58 PM EDT [facility] Final Diagnosis A. CEREBROSPINAL FLUID: - NO EVIDENCE OF MALIGNANCY. 10/17/2024 4:58 PM EDT [facility] at 1658 EDT Clinical History H/O SCLC, mets to brain 10/17/2024 4:58 PM EDT [facility] Previous Cancer Yes 10/17/2024 4:58 PM EDT [facility] Previous Cancer Primary Site Lung Cancer 10/17/2024 4:58 PM EDT [facility] Gross Description A. CEREBROSPINAL FLUID 8 ml's clear fluid, 3 ml's tube one, 0.5 ml's tube two, 1.5 ml's tube three and 3 ml's tube four processed as thin prep 10/17/2024 4:58 PM EDT [facility] Cerebrospinal Fluid Cerebrospinal fluid specimen / Unknown Non-blood Collection / Unknown 10/14/2024 10:24 AM EDT 10/14/2024 1:53 PM EDT Result Arlet Perkins MD LAB CYTOLOGY ORDERABLES Final Result Performing Organization Address [facility] Co de Phone Number [facility] [address] [place] [address] * CSF Panel (10/14/2024 10:24 AM EDT) Cerebrospinal Fluid Lumbar puncture / Unknown Non-blood Collection / Unknown 10/14/2024 10:24 AM EDT 10/14/2024 10:55 AM EDT us Hyacinth Perkins MD LAB BODY FLUIDS AND STOOLS ORD ERABLES Final Result Performing Organization Address [facility] Co de Phone Number [facility] [address] [place] [address] * CSF Panel (10/14/2024 10:24 AM EDT) Cerebrospinal Fluid Lumbar puncture / Unknown Non-blood Collection / Unknown 10/14/2024 10:24 AM EDT 10/14/2024 10:55 AM EDT us Hyacinth Perkins MD LAB BODY FLUIDS AND STOOLS ORD ERABLES Final Result Performing Organization Address [facility]/ZIP Co de Phone Number [facility] [address] [place] [address] * (ABNORMAL) POCT glucose meter (10/14/2024 9:37 AM EDT) POCT Glucose 139(H) 74 - 99 mg/dL 10/14/2024 9:54 AM EDT [facility] Comment:Accuracy of a [...] Comment 10/14/2024 9:54 AM EDT [facility] Inter Fold Roll Cutter ID Michelle Carranza 10/14/2024 9:54 AM EDT [facility] Device ID [id number] 10/14/2024 9:54 AM EDT [facility] Specimen Type POC Capillary 10/14/2024 9:54 AM EDT [facility] Blood Capillary blood specimen / Unknown 10/14/2024 9:37 AM EDT 10/14/2024 9:54 AM EDT us Hyacinth Perkins MD LAB POINT OF CARE TE ST DOCKED DEVICE UNSOLICITED RESULTS Final Result Performing Organization Address [facility]/State/[facility] Co de Phone Number [facility] [address] [place] [phone] * (ABNORMAL) Vancomycin, Trough, Plasma Please draw ~30 minutes prior to dose due at 0600 on 10/14/24.Please do NOT hold dose awaiting level to return. Consider obtaining level via peripheral stick. Ifperipheral stick is not feasible, please ensure that line ... (10/14/2024 5:46 AM EDT) Vancomycin, Trough, Plasma 6.6(L) 10.0 - 20.0 ug/mL 10/14/2024 7:09 AM EDT [facility] Blood Venous blood specimen / Unknown Venipuncture / Unknown 10/14/2024 5:46 AM EDT 10/14/2024 5:53 AM EDT Narrative [facility] - 10/14/2024 7:09 AM EDT Therapeutic Trough level: 10-20ug/mL Supra-therapeutic Trough level: >20 ug/mL us Hyacinth Perkins MD LAB BLOOD ORDERABLES Final Res ult [facility] [address] [place] [address] * (ABNORMAL) CBC and Differential (10/14/2024 5:46 AM EDT) WBC Count 0.40(LL) 3.70 - 10.30 10*3/uL LAB HEMATOLOGY METHOD 10/14/2024 11:39 AM EDT [facility] RBC Count 2.96(L) 3.90 - 5.20 10*6/uL LAB HEMATOLOGY METHOD 10/14/2024 11:39 AM EDT [facility] HGB 9.2(L) 11.2 - 15.7 g/dL LAB HEMATOLOGY METHOD 10/14/2024 11:39 AM EDT [facility] HCT 27.6(L) 34.0 - 45.0 % LAB HEMATOLOGY METHOD 10/14/2024 11:39 AM EDT [facility] Platelet Count 47(L) 155 - 369 10*3/uL LAB HEMATOLOGY METHOD 10/14/2024 11:39 AM EDT [facility] MCV 93 79 - 98 fL LAB HEMATOLOGY METHOD 10/14/2024 11:39 AM EDT [facility] MCH 31.1 26.0 - 32.0 pg LAB HEMATOLOGY METHOD 10/14/2024 11:39 AM EDT [facility] MCHC 33.3 30.7 - 35.5 g/dL LAB HEMATOLOGY METHOD 10/14/2024 11:39 AM EDT [facility] RDW 14.7(H) 11.5 - 14.5 % LAB HEMATOLOGY METHOD 10/14/2024 11:39 AM EDT [facility] MPV 10.3 8.8 - 12.5 fL LAB HEMATOLOGY METHOD 10/14/2024 11:39 AM EDT [facility] nRBC 0.0 <=0.0 per 100 WBCs LAB HEMATOLOGY METHOD 10/14/2024 11:39 AM EDT [facility] Differential Type Automated LAB HEMATOLOGY METHOD 10/14/2024 11:39 AM EDT [facility] Neutrophils % 5 % LAB HEMATOLOGY METHOD 10/14/2024 11:39 AM EDT [facility] Lymphocytes % 90 % LAB HEMATOLOGY METHOD 10/14/2024 11:39 AM EDT [facility] Monocytes % 5 % LAB HEMATOLOGY METHOD 10/14/2024 11:39 AM EDT [facility] Eosinophils % 0 % LAB HEMATOLOGY METHOD 10/14/2024 11:39 AM EDT [facility] Basophils % 0 % LAB HEMATOLOGY METHOD 10/14/2024 11:39 AM EDT [facility] Immature Granulocytes % 0 % LAB HEMATOLOGY METHOD 10/14/2024 11:39 AM EDT [facility] Neutrophils Absolute 0.02(LL) 1.60 - 6.10 10*3/uL LAB HEMATOLOGY METHOD 10/14/2024 11:39 AM EDT [facility] Comment:Marked Leukopenia. A utomated Differential verified by slide scan. Lymphocytes Absolute 0.36(L) 1.20 - 3.90 10*3/uL LAB HEMATOLOGY METHOD 10/14/2024 11:39 AM EDT [facility] Monocytes Absolute 0.02(L) 0.30 - 0.90 10*3/uL LAB HEMATOLOGY METHOD 10/14/2024 11:39 AM EDT [facility] Eosinophils Absolute 0.00 0.00 - 0.50 10*3/uL LAB HEMATOLOGY METHOD 10/14/2024 11:39 AM EDT [facility] Basophils Absolute 0.00 0.00 - 0.10 10*3/uL LAB HEMATOLOGY METHOD 10/14/2024 11:39 AM EDT [facility] Immature Granulocytes Absolute 0.00 0.00 - 0.06 10*3/uL LAB HEMATOLOGY METHOD 10/14/2024 11:39 AM EDT [facility] Blood Venous blood specimen / Unknown Venipuncture / Unknown 10/14/2024 5:46 AM EDT 10/14/2024 5:55 AM EDT Narrative [facility] - 10/14/2024 11:39 AM EDT Therapeutic decision making should be based on absolute values, rather than percentages. us Vesna Barcenas MD LAB BLOOD ORDERABLES Final R esult [facility] [address] [place] [address] * (ABNORMAL) Basic Metabolic Panel, Plasma (10/14/2024 5:46 AM EDT) Glucose, Plasma 164(H) 74 - 99 mg/dL 10/14/2024 6:57 AM EDT [facility] BUN, Plasma 17 8 - 23 mg/dL 10/14/2024 6:57 AM EDT [facility] Creatinine, Plasma 0.54(L) 0.60 - 1.10 mg/dL 10/14/2024 6:57 AM EDT [facility] BUN/Creatinine Ratio 31 10/14/2024 6:57 AM EDT [facility] Sodium, Plasma 140 136 - 145 mmol/L 10/14/2024 6:57 AM EDT [facility] Potassium, Plasma 4.1 3.6 - 4.9 mmol/L 10/14/2024 6:57 AM EDT [facility] Chloride, Plasma 105 97 - 107 mmol/L 10/14/2024 6:57 AM EDT [facility] CO2, Plasma 24 22 - 29 mmol/L 10/14/2024 6:57 AM EDT [facility] Anion Gap 11 6 - 16 mmol/L 10/14/2024 6:57 AM EDT [facility] Total Calcium, Plasma 8.0(L) 8.9 - 10.2 mg/dL 10/14/2024 6:57 AM EDT [facility] eGFRcr 103.6 mL/min/1.7 3m*2 10/14/2024 6:57 AM EDT [facility] Comment:Reported eGFRcr in m L/min/1.73m2 is based the CKD-EPI 2020 equation that does not use a race coefficient. Blood Venous blood specimen / Unknown Venipuncture / Unknown 10/14/2024 5:46 AM EDT 10/14/2024 5:53 AM EDT us Vesna Barcenas MD LAB BLOOD ORDERABLES Final R esult [facility] [address] [place] [address] * (ABNORMAL) POCT glucose meter (10/13/2024 8:42 [...] Comment 10/13/2024 8:45 PM EDT [facility] Inter Fold Roll Cutter ID Debbi Cantu 10/13/2024 8:45 PM EDT [facility] Device ID [id number] 10/13/2024 8:45 PM EDT [facility] Specimen Type POC Capillary 10/13/2024 8:45 PM EDT [facility] Blood Capillary blood specimen / Unknown 10/13/2024 8:42 PM EDT 10/13/2024 8:45 PM EDT us Hyacinth Perkins MD LAB POINT OF CARE TE ST DOCKED DEVICE UNSOLICITED RESULTS Final Result Performing Organization Address City/State/[facility] Co de Phone Number [facility] [address] [place] [address] * CT Chest w IV Contrast (10/13/2024 [...] Woods MD on 10/13/2024 9:09 PM us Breto Stanford DO IMG CT PROCEDURES Final Re sult * (ABNORMAL) POCT glucose meter (10/13/2024 5:55 PM EDT) POCT Glucose 271(H) 74 - 99 mg/dL 10/13/2024 5:56 PM EDT [facility] Comment:Accuracy of [...] for testing. Comment 10/13/2024 5:56 PM EDT [facility] Inter Fold Roll Cutter ID Cheryle Hall 025 5:56 PM EDT [facility] Device ID [id number] 10/13/2024 5:56 PM EDT [facility] Specimen Type POC Capillary 10/13/2024 5:56 PM EDT [facility] Blood Capillary blood specimen / Unknown 10/13/2024 5:55 PM EDT 10/13/2024 5:56 PM EDT us Hyacinth Perkins MD LAB POINT OF CARE TE ST DOCKED DEVICE UNSOLICITED RESULTS Final Result [facility] [address] [place] [address] * (ABNORMAL) POCT glucose meter (10/13/2024 11:26 AM EDT) POCT Glucose 131(H) 74 - 99 mg/dL [...] for testing. Comment 10/13/2024 11:28 AM EDT [facility] Inter Fold Roll Cutter ID Jessie Walsh 025 11:28 AM EDT [facility] Device ID [id number] 10/13/2024 11:28 AM EDT [facility] Specimen Type POC Capillary 10/13/2024 11:28 AM EDT [facility] Blood Capillary blood specimen / Unknown 10/13/2024 11:26 AM EDT 10/13/2024 11:28 AM EDT Hyacinth Perkins MD LAB POINT OF CARE TE ST DOCKED DEVICE UNSOLICITED RESULTS Final Result [facility] [address] [place] [address] * (ABNORMAL) POCT glucose meter (10/13/2024 7:04 AM EDT) [facility] POCT Glucose 120(H) 74 - 99 mg/dL 10/13/2024 7:06 AM EDT [facility] Comment:Accuracy of [...] for testing. Comment 10/13/2024 7:06 AM EDT [facility] Inter Fold Roll Cutter ID Jessie Walsh 025 7:06 AM EDT [facility] Device ID [id number] 10/13/2024 7:06 AM EDT [facility] Specimen Type POC Capillary 10/13/2024 7:06 AM EDT [facility] Blood Capillary blood specimen / Unknown 10/13/2024 7:04 AM EDT 10/13/2024 7:06 AM EDT us Berto M Stanford LAB POINT OF CARE TEST DOCKED DEVICE UNSOLICITED RESULTS Final Result [facility] [address] [place] [address] * MR Head w and wo IV [...] Harpreet Draper MD on 10/13/2024 12:36 PM us Shekhar Ledezma MD IMG MRI PROCEDURES Final Re sult * Osmolality, urine (10/13/2024 2:33 AM EDT) Osmolality, Urine 504 50 - 1,200 mOsm/kg 10/13/2024 4:35 AM EDT [facility] Urine Urine specimen obtained by clean catch procedure / Unknown Non-blood Collection / Unknown 10/13/2024 2:33 AM EDT 10/13/2024 2:51 AM EDT Berto Stanford DO LAB URINE ORDERABLES Final Result Performing Organization Address City/[facility]/ZIP Co de Phone Number [facility] [address] [place] [address] * Sodium, urine, random (10/13/2024 2:33 AM EDT) Sodium, Urine 49 mmol/L 10/13/2024 3:10 AM EDT [facility] Urine Urine specimen obtained by clean catch procedure / Unknown Non-blood Collection / Unknown 10/13/2024 2:33 AM EDT 10/13/2024 2:51 AM EDT Berto Stanford DO LAB URINE ORDERABLES Final Result [facility] [address] [place] [address] * Streptococcus pneumoniae and Legionella Urinary Antigen (10/13/2024 2:33 AM EDT) Legionella pneumophila serogroup 1 Antigen Result (Urine) Negative Negative 10/13/2024 7:15 AM EDT [facility] Streptococcus pneumoniae Antigen Result (Urine) Negative Negative 10/13/2024 7:15 AM EDT [facility] Urine Urine specimen obtained by clean catch procedure / Unknown Non-blood Collection / Unknown 10/13/2024 2:33 AM EDT 10/13/2024 3:21 AM EDT us Shekhar Ledezma MD LAB MICROBIOLOGY - GENERAL ORDERABLES Final Result Performing Organization Address [facility] Co de Phone Number [facility] [address] [place] [address] * Urine Meek Panel (10/13/2024 2:33 AM EDT) Extra Reflex urine culture not indicated 10/13/2024 11:01 AM EDT [facility] Comment: Previously prelim verified as [...] ORDERABLES Gracia l Result Performing Organization Address City/[facility]/ZIP Co de Phone Number [facility] [address] [place] [address] * (ABNORMAL) Urinalysis with reflex microscopic (Culture NOT Included) (10/13/2024 2:33 AM EDT) Color, Urine Yellow LAB URINALYSIS - AUTOMATED METHOD 10/13/2024 2:45 AM EDT [facility] Clarity, Urine Cloudy LAB URINALYSIS - AUTOMATED METHOD 10/13/2024 2:45 AM EDT [facility] Spec [place], Urine >1.030(H) 1.005 - 1.030 LAB URINALYSIS - AUTOMATED METHOD 10/13/2024 2:45 AM EDT [facility] pH, Urine 6.0 5.0 - 8.0 LAB URINALYSIS - AUTOMATED METHOD 10/13/2024 2:45 AM EDT [facility] Protein, Urine Trace(A) Negative mg/dL LAB URINALYSIS - AUTOMATED METHOD 10/13/2024 2:45 AM EDT [facility] Glucose, Urine >=1000(A) Negative mg/dL LAB URINALYSIS - AUTOMATED METHOD 10/13/2024 2:45 AM EDT [facility] Ketones, Urine Negative Negative mg/dL LAB URINALYSIS - AUTOMATED METHOD 10/13/2024 2:45 AM EDT [facility] Blood, Urine Negative Negative LAB URINALYSIS - AUTOMATED METHOD 10/13/2024 2:45 AM EDT [facility] Bilirubin, Urine Negative Negative LAB URINALYSIS - AUTOMATED METHOD 10/13/2024 2:45 AM EDT [facility] Urobilinogen, Urine 1.0 0.2 to 1.0 mg/dL LAB URINALYSIS - AUTOMATED METHOD 10/13/2024 2:45 AM EDT [facility] Leukocytes, Urine Negative Negative LAB URINALYSIS - AUTOMATED METHOD 10/13/2024 2:45 AM EDT [facility] Nitrite, Urine Negative Negative LAB URINALYSIS - AUTOMATED METHOD 10/13/2024 2:45 AM EDT [facility] Urine Urine specimen obtained by clean catch procedure / Unknown Non-blood Collection / Unknown 10/13/2024 2:33 AM EDT 10/13/2024 2:40 AM EDT Callie [facility] LAB URINE ORDERABLES Gracia l Result [facility] [address] [place] [address] * Phosphorus (10/13/2024 1:26 AM EDT) Phosphorus, Plasma 3.8 2.5 - 4.5 mg/dL 10/13/2024 1:51 AM EDT [facility] Blood Venous blood specimen / Unknown Venipuncture / Unknown 10/13/2024 1:26 AM EDT 10/13/2024 1:29 AM EDT Berto Baumon LAB BLOOD ORDERABLES Final Result [facility] [address] [place] [address] * Magnesium, Plasma (10/13/2024 1:26 AM EDT) Magnesium, Plasma 2.2 1.9 - 2.4 mg/dL 10/13/2024 1:51 AM EDT [facility] Blood Venous blood specimen / Unknown Venipuncture / Unknown 10/13/2024 1:26 AM EDT 10/13/2024 1:29 AM EDT Berto Baumon LAB BLOOD ORDERABLES Final Result Performing Organization Address City/[facility]/ZIP Co de Phone Number [facility] [address] [place] [address] * (ABNORMAL) Comprehensive metabolic panel (10/13/2024 1:26 AM EDT) Glucose, Plasma 90 74 - 99 mg/dL 10/13/2024 1:51 AM EDT [facility] BUN, Plasma 21 8 - 23 mg/dL 10/13/2024 1:51 AM EDT [facility] Creatinine, Plasma 0.69 0.60 - 1.10 mg/dL 10/13/2024 1:51 AM EDT [facility] BUN/Creatinine Ratio 30 10/13/2024 1:51 AM EDT [facility] Sodium, Plasma 135(L) 136 - 145 mmol/L 10/13/2024 1:51 AM EDT [facility] Potassium, Plasma 3.4(L) 3.6 - 4.9 mmol/L 10/13/2024 1:51 AM EDT [facility] Chloride, Plasma 99 97 - 107 mmol/L 10/13/2024 1:51 AM EDT [facility] CO2, Plasma 27 22 - 29 mmol/L 10/13/2024 1:51 AM EDT [facility] Anion Gap 9 6 - 16 mmol/L 10/13/2024 1:51 AM EDT [facility] Total Calcium, Plasma 8.3(L) 8.9 - 10.2 mg/dL 10/13/2024 1:51 AM EDT [facility] Total Protein 5.5(L) 6.3 - 7.9 g/dL 10/13/2024 1:51 AM EDT [facility] Albumin, Plasma 2.9(L) 3.5 - 5.2 g/dL 10/13/2024 1:51 AM EDT [facility] AST, Plasma 17 10 - 35 U/L 10/13/2024 1:51 AM EDT [facility] ALT, Plasma 25 10 - 35 U/L 10/13/2024 1:51 AM EDT [facility] Alkaline Phosphatase, Plasma 63 46 - 142 U/L 10/13/2024 1:51 AM EDT [facility] Total Bilirubin, Plasma 0.6 0.2 - 1.1 mg/dL 10/13/2024 1:51 AM EDT [facility] eGFRcr 97.7 mL/min/1.7 3m*2 10/13/2024 1:51 AM EDT [facility] Comment:Reported eGFRcr in m L/min/1.73m2 is based the CKD-EPI 2020 equation that does not use a race coefficient. Blood Venous blood specimen / Unknown Venipuncture / Unknown 10/13/2024 1:26 AM EDT 10/13/2024 1:29 AM EDT us Berto Stanford DO LAB BLOOD ORDERABLES Final Result [facility] [address] [place] [address] * (ABNORMAL) CBC and Differential (10/13/2024 1:26 AM EDT) WBC Count 0.53(LL) 3.70 - 10.30 10*3/uL LAB HEMATOLOGY METHOD 10/13/2024 3:38 AM EDT [facility] RBC Count 3.32(L) 3.90 - 5.20 10*6/uL LAB HEMATOLOGY METHOD 10/13/2024 3:38 AM EDT [facility] HGB 10.1(L) 11.2 - 15.7 g/dL LAB HEMATOLOGY METHOD 10/13/2024 3:38 AM EDT [facility] HCT 31.3(L) 34.0 - 45.0 % LAB HEMATOLOGY METHOD 10/13/2024 3:38 AM EDT [facility] Platelet Count 41(L) 155 - 369 10*3/uL LAB HEMATOLOGY METHOD 10/13/2024 3:38 AM EDT [facility] MCV 94 79 - 98 fL LAB HEMATOLOGY METHOD 10/13/2024 3:38 AM EDT [facility] MCH 30.4 26.0 - 32.0 pg LAB HEMATOLOGY METHOD 10/13/2024 3:38 AM EDT [facility] MCHC 32.3 30.7 - 35.5 g/dL LAB HEMATOLOGY METHOD 10/13/2024 3:38 AM EDT [facility] RDW 15.0(H) 11.5 - 14.5 % LAB HEMATOLOGY METHOD 10/13/2024 3:38 AM EDT [facility] MPV 9.1 8.8 - 12.5 fL LAB HEMATOLOGY METHOD 10/13/2024 3:38 AM EDT [facility] nRBC 0.0 <=0.0 per 100 WBCs LAB HEMATOLOGY METHOD 10/13/2024 3:38 AM EDT [facility] Differential Type Automated LAB HEMATOLOGY METHOD 10/13/2024 3:38 AM EDT [facility] Neutrophils % 6 % LAB HEMATOLOGY METHOD 10/13/2024 3:38 AM EDT [facility] Lymphocytes % 90 % LAB HEMATOLOGY METHOD 10/13/2024 3:38 AM EDT [facility] Monocytes % 2 % LAB HEMATOLOGY METHOD 10/13/2024 3:38 AM EDT [facility] Eosinophils % 0 % LAB HEMATOLOGY METHOD 10/13/2024 3:38 AM EDT [facility] Basophils % 2 % LAB HEMATOLOGY METHOD 10/13/2024 3:38 AM EDT [facility] Immature Granulocytes % 0 % LAB HEMATOLOGY METHOD 10/13/2024 3:38 AM EDT [facility] Neutrophils Absolute 0.03(LL) 1.60 - 6.10 10*3/uL LAB HEMATOLOGY METHOD 10/13/2024 3:38 AM EDT [facility] Lymphocytes Absolute 0.48(L) 1.20 - 3.90 10*3/uL LAB HEMATOLOGY METHOD 10/13/2024 3:38 AM EDT [facility] Monocytes Absolute 0.01(L) 0.30 - 0.90 10*3/uL LAB HEMATOLOGY METHOD 10/13/2024 3:38 AM EDT [facility] Eosinophils Absolute 0.00 0.00 - 0.50 10*3/uL LAB HEMATOLOGY METHOD 10/13/2024 3:38 AM EDT [facility] Basophils Absolute 0.01 0.00 - 0.10 10*3/uL LAB HEMATOLOGY METHOD 10/13/2024 3:38 AM EDT [facility] Immature Granulocytes Absolute 0.00 0.00 - 0.06 10*3/uL LAB HEMATOLOGY METHOD 10/13/2024 3:38 AM EDT [facility] Blood Venous blood specimen / Unknown Venipuncture / Unknown 10/13/2024 1:26 AM EDT 10/13/2024 1:29 AM EDT Narrative [facility] - 10/13/2024 3:38 AM EDT Therapeutic decision making should be based on absolute values, rather than percentages. Berto Stanford DO LAB BLOOD ORDERABLES Final Result [facility] [address] [place] [address] * Methicillin Resistant Staphylococcus aureus (MRSA) by PCR (10/13/2024 12:47 AM EDT) Methicillin Resistant Staphylococcus aureus (MRSA) by PCR Not Detected Not Detected 10/13/2024 3:16 AM EDT [facility] Swab Both anterior nares / Unknown Non-blood Collection / Unknown 10/13/2024 12:47 AM EDT 10/13/2024 1:57 AM EDT Narrative [facility] - 10/13/2024 3:16 AM EDT [...] GENERAL ORDERABLES Final Result Performing Organization Address City/[facility]/ZIP Co de Phone Number [facility] [address] [place] [address] * (ABNORMAL) POCT glucose meter (10/12/2024 11:44 PM EDT) POCT Glucose 103(H) 74 - 99 mg/dL 10/12/2024 11:46 PM EDT [facility] Comment:Accuracy of a [...] Comment 10/12/2024 11:46 PM EDT [facility] Inter Fold Roll Cutter ID Carlos Baez 10/12/2024 11:46 PM EDT [facility] Device ID [id number] 10/12/2024 11:46 PM EDT [facility] Specimen Type POC Capillary 10/12/2024 11:46 PM EDT [facility] Blood Capillary blood specimen / Unknown 10/12/2024 11:44 PM EDT 10/12/2024 11:46 PM EDT Berto Stanford DO LAB POINT OF CARE TEST DOCKED DEVICE UNSOLICITED RESULTS Final Result Performing Organization Address City/[facility]/ZIP Co de Phone Number [facility] [address] [place] [address] * Anti Xa Level Low Molecular Weight (10/12/2024 10:37 PM EDT) Anti Xa Level Low Molecular Weight Heparin 1.20 <2.00 IU/mL 10/12/2024 11:52 PM EDT [facility] Blood Venous blood specimen / Unknown Venipuncture / Unknown 10/12/2024 10:37 PM EDT 10/12/2024 10:43 PM EDT Narrative [facility] - 10/12/2024 11:52 PM EDT Therapeutic Range: LMWH enoxaparin 1mg/kg/dose, 12hrs - peak (3-5 hours after dose): 0.5 - 1.0 IU/mL LMWH enoxaparin 1.5mg/kg/dose, 24hrs - peak (3-5 hours after dose): 1.0 - 2.0 IU/mL LMWH enoxaparin prophylaxis: Not established us Shekhar Ledezma MD LAB BLOOD ORDERABLES Final Result Performing Organization Address City/[facility] Co de Phone Number [address] [address] * (ABNORMAL) POCT glucose meter (10/12/2024 9:21 PM EDT) POCT Glucose 189(H) 74 - 99 mg/dL [...] for testing. Comment 10/12/2024 9:22 PM EDT [facility] Inter Fold Roll Cutter ID Carlos Baez 10/12/2024 9:22 PM EDT [facility] Device ID [id number] 10/12/2024 9:22 PM EDT [facility] Specimen Type POC Capillary 10/12/2024 9:22 PM EDT [facility] Blood Capillary blood specimen / Unknown 10/12/2024 9:21 PM EDT 10/12/2024 9:22 PM EDT us Shekhar Ledezma MD LAB POINT OF CARE T EST DOCKED DEVICE UNSOLICITED RESULTS Final Result Performing Organization Address City/[facility]/ZIP Co de Phone Number [facility] [address] [place] [address] * (ABNORMAL) POCT glucose meter (10/12/2024 8:49 PM EDT) [facility] POCT Glucose 56(L) 74 - 99 mg/dL [...] for testing. Comment 10/12/2024 8:50 PM EDT [facility] Inter Fold Roll Cutter ID Carlos Baez 10/12/2024 8:50 PM EDT [facility] Device ID [id number] 10/12/2024 8:50 PM EDT [facility] Specimen Type POC Capillary 10/12/2024 8:50 PM EDT [facility] Blood Capillary blood specimen / Unknown 10/12/2024 8:49 PM EDT 10/12/2024 8:50 PM EDT us Shekhar Ledezma MD LAB POINT OF CARE T EST DOCKED DEVICE UNSOLICITED RESULTS Final Result [facility] [address] [place] [address] * ECG Adult (10/12/2024 6:17 PM EDT) [facility] EKG DIAGNOSIS CLASS Abnormal MUSE ECG Ventricular Rate 151 BPM MUSE ECG Atrial Rate 375 BPM MUSE ECG QRSD Interval 90 ms MUSE ECG QT Interval 298 ms MUSE ECG QTC Interval 472 ms MUSE ECG P [place] 112 degrees MUSE ECG R [place] -10 degrees MUSE ECG T Wave [place] 72 degrees MUSE ECG Diagnosis Atrial fibrillation [...] Talisha Mo MD on 10/12/2024 10:02 PM us Callie RAMOS IMG CT PROCEDURES Final R esult * CT [...] Julia Hernandez MD on 10/12/2024 6:59 PM Callie RAMOS IM CT PROCEDURES Final R esult * XR [...] for all analytes 10/12/2024 7:53 PM EDT [facility] Swab Nasopharyngeal structure / Unknown Non-blood Collection / Unknown 10/12/2024 4:54 PM EDT 10/12/2024 5:28 PM EDT Narrative [facility] - 10/12/2024 7:53 PM EDT [...] Respiratory PCR Panel is performed using the [employer] instrument. This test is FDA approved for use with Nasopharyngeal swabs only. This test is used for clinical purposes. It should not be regarded as investigational or for research. The [facility]biology [facility] is certified under the Clinical Laboratory Improvement Amendments of 1988 (CLIA-88) as qualified to perform high complexity clinical laboratory testing. us Callie RAMOS LAB MICROBIOLOGY - GENERA L ORDERABLES Final Result [facility] [address] [place] [address] * (ABNORMAL) Osmolality (10/12/2024 4:51 PM EDT) Pathologist [facility] Osmolality, Serum 279(L) 280 - 301 mOsm/Kg 10/13/2024 12:14 AM EDT [facility] Blood Venous blood specimen / Unknown Venipuncture / Unknown 10/12/2024 4:51 PM EDT 10/12/2024 5:09 PM EDT us Berto Stanford DO LAB BLOOD ORDERABLES Final Result Performing Organization Address City/[facility]/ZIP Co de Phone Number [facility] [address] [place] [address] * Morphology (10/12/2024 4:51 PM EDT) RBC Morphology Slide Reviewed LAB HEMATOLOGY METHOD 10/12/2024 7:25 PM EDT [facility] Teardrop Cells Present LAB HEMATOLOGY METHOD 10/12/2024 7:25 PM EDT [facility] Platelet Estimate Platelet smear estimate consistent with automated count LAB HEMATOLOGY METHOD 10/12/2024 7:25 PM EDT [facility] Blood Venous blood specimen / Unknown Venipuncture / Unknown 10/12/2024 4:51 PM EDT 10/12/2024 5:09 PM EDT us Callie RAMOS LAB BLOOD ORDERABLES Gracia l Result Performing Organization Address City/[facility] Co de Phone Number [facility] [address] [place] [address] * (ABNORMAL) Manual Differential (10/12/2024 4:51 PM EDT) Blasts % 0 % LAB HEMATOLOGY METHOD 10/12/2024 7:25 PM EDT [facility] Promyelocytes % 0 % LAB HEMATOLOGY METHOD 10/12/2024 7:25 PM EDT [facility] Myelocytes % 0 % LAB HEMATOLOGY METHOD 10/12/2024 7:25 PM EDT [facility] Metamyelocytes % 0 % LAB HEMATOLOGY METHOD 10/12/2024 7:25 PM EDT [facility] Neutrophils % 3 % LAB HEMATOLOGY METHOD 10/12/2024 7:25 PM EDT [facility] Lymphocytes % 90 % LAB HEMATOLOGY METHOD 10/12/2024 7:25 PM EDT [facility] Reactive Lymphocytes % 2 % LAB HEMATOLOGY METHOD 10/12/2024 7:25 PM EDT [facility] Monocytes % 1 % LAB HEMATOLOGY METHOD 10/12/2024 7:25 PM EDT [facility] Eosinophils % 2 % LAB HEMATOLOGY METHOD 10/12/2024 7:25 PM EDT [facility] Basophils % 2 % LAB HEMATOLOGY METHOD 10/12/2024 7:25 PM EDT [facility] Blasts Absolute 0.00 10*3/UL LAB HEMATOLOGY METHOD 10/12/2024 7:25 PM EDT [facility] Promyelocytes Absolute 0.00 10*3/uL LAB HEMATOLOGY METHOD 10/12/2024 7:25 PM EDT [facility] Myelocytes Absolute 0.00 10*3/uL LAB HEMATOLOGY METHOD 10/12/2024 7:25 PM EDT [facility] Metamyelocytes Absolute 0.00 10*3/uL LAB HEMATOLOGY METHOD 10/12/2024 7:25 PM EDT [facility] Neutrophils Absolute 0.03(LL) 1.60 - 6.10 10*3/uL LAB HEMATOLOGY METHOD 10/12/2024 7:25 PM EDT [facility] Lymphocytes Absolute 0.76(L) 1.20 - 3.90 10*3/uL LAB HEMATOLOGY METHOD 10/12/2024 7:25 PM EDT [facility] Reactive Lymphocytes Absolute 0.02 10*3/uL LAB HEMATOLOGY METHOD 10/12/2024 7:25 PM EDT [facility] Monocytes Absolute 0.01(L) 0.30 - 0.90 10*3/uL LAB HEMATOLOGY METHOD 10/12/2024 7:25 PM EDT [facility] Eosinophils Absolute 0.02 0.00 - 0.50 10*3/uL LAB HEMATOLOGY METHOD 10/12/2024 7:25 PM EDT [facility] Basophils Absolute 0.02 0.00 - 0.10 10*3/uL LAB HEMATOLOGY METHOD 10/12/2024 7:25 PM EDT [facility] Blood Venous blood specimen / Unknown Venipuncture / Unknown 10/12/2024 4:51 PM EDT 10/12/2024 5:09 PM EDT [facility] [employer] LAB BLOOD ORDERABLES Gracia l Result [facility] [address] [place] [address] * Lactic acid, venous (10/12/2024 4:51 PM EDT) Lactate, Venous, Whole Blood 1.2 0.5 - 2.2 mmol/L LAB HEMATOLOGY METHOD 10/12/2024 5:22 PM EDT [facility] Blood Venous blood specimen / Unknown Venipuncture / Unknown 10/12/2024 4:51 PM EDT 10/12/2024 5:17 PM EDT us [facility] [employer] [facility] LAB BLOOD ORDERABLES Gracia l Result Performing Organization Address City/[facility]/[place] [address] * Blood Culture (Aerobic/Anaerobet Set) (10/12/2024 4:51 PM EDT) Culture No growth at day 5 10/17/2024 6:01 PM EDT [facility] Blood Structure of antecubital vein / Unknown Venipuncture / Unknown 10/12/2024 4:51 PM EDT 10/12/2024 5:14 PM EDT Narrative [facility] - 10/17/2024 6:01 PM EDT Low blood volume submitted, results may be compromised us Callie [employer] LAB MICROBIOLOGY - GENERA L ORDERABLES Final Result [facility] [address] [place] [address] * Blood Culture (Aerobic/Anaerobet Set) (10/12/2024 4:51 PM EDT) Culture No growth at day 5 10/17/2024 6:01 PM EDT [facility] Blood Structure of left hand / Unknown Venipuncture / Unknown 10/12/2024 4:51 PM EDT 10/12/2024 5:14 PM EDT [facility] - 10/17/2024 6:01 PM EDT Low blood volume submitted, results may be compromised [facility] [employer] LAB MICROBIOLOGY - GENERA L ORDERABLES Final Result Performing Organization Address [facility]/ZIP Co de Phone Number [facility] [address] [place] [address] * (ABNORMAL) Procalcitonin (10/12/2024 4:51 PM EDT) Procalcitonin, Plasma 0.69(H) <0.09 ng/mL 10/12/2024 5:39 PM EDT [facility] Blood Venous blood specimen / Unknown Venipuncture / Unknown 10/12/2024 4:51 PM EDT 10/12/2024 5:09 PM EDT [facility] - 10/12/2024 5:39 PM EDT Procalcitonin [...] predict 28 day mortality risk. Please consult [email or web address]-eye-[email or web address] for more information. Test performed at [facility]. us Callie [employer] LAB BLOOD ORDERABLES Gracia l Result Performing Organization Address [facility]/ZIP Co de Phone Number [facility] [address] [place] [address] * (ABNORMAL) C-Reactive protein (10/12/2024 4:51 PM EDT) CRP, Plasma 90.1(H) <=8.0 mg/L 10/12/2024 5:38 PM EDT [facility] Blood Venous blood specimen / Unknown Venipuncture / Unknown 10/12/2024 4:51 PM EDT 10/12/2024 5:09 PM EDT Narrative [facility] - 10/12/2024 5:38 PM EDT This CRP test is appropriate for assessment of infection, systemic inflammation and/or tissue injury. To assess cardiovascular disease risk order high sensitivity CRP (CRPH). Callie [employer] LAB BLOOD ORDERABLES Gracia l Result Performing Organization Address [facility]/ZIP Co de Phone Number [facility] [address] [place] [address] * Phosphorus (10/12/2024 4:51 PM EDT) Phosphorus, Plasma 2.8 2.5 - 4.5 mg/dL 10/12/2024 5:38 PM EDT [facility] Blood Venous blood specimen / Unknown Venipuncture / Unknown 10/12/2024 4:51 PM EDT 10/12/2024 5:09 PM EDT Callie [facility] [employer] LAB BLOOD ORDERABLES Gracia l Result Performing Organization Address [facility]/[place] [address] * (ABNORMAL) Magnesium (10/12/2024 4:51 PM EDT) Magnesium, Plasma 1.2(L) 1.9 - 2.4 mg/dL 10/12/2024 5:38 PM EDT [facility] Blood Venous blood specimen / Unknown Venipuncture / Unknown 10/12/2024 4:51 PM EDT 10/12/2024 5:09 PM EDT [facility] [employer] LAB BLOOD ORDERABLES Gracia l Result [facility] [address] [place] [address] * (ABNORMAL) CMP (10/12/2024 4:51 PM EDT) Glucose, Plasma 110(H) 74 - 99 mg/dL 10/12/2024 5:38 PM EDT [facility] BUN, Plasma 27(H) 8 - 23 mg/dL 10/12/2024 5:38 PM EDT [facility] Creatinine, Plasma 0.99 0.60 - 1.10 mg/dL 10/12/2024 5:38 PM EDT [facility] BUN/Creatinine Ratio 27 10/12/2024 5:38 PM EDT [facility] Sodium, Plasma 131(L) 136 - 145 mmol/L 10/12/2024 5:38 PM EDT [facility] Potassium, Plasma 3.9 3.6 - 4.9 mmol/L 10/12/2024 5:38 PM EDT [facility] Chloride, Plasma 93(L) 97 - 107 mmol/L 10/12/2024 5:38 PM EDT [facility] CO2, Plasma 25 22 - 29 mmol/L 10/12/2024 5:38 PM EDT [facility] Anion Gap 13 6 - 16 mmol/L 10/12/2024 5:38 PM EDT [facility] Total Calcium, Plasma 9.1 8.9 - 10.2 mg/dL 10/12/2024 5:38 PM EDT [facility] Total Protein 6.2(L) 6.3 - 7.9 g/dL 10/12/2024 5:38 PM EDT [facility] Albumin, Plasma 3.4(L) 3.5 - 5.2 g/dL 10/12/2024 5:38 PM EDT [facility] AST, Plasma 17 10 - 35 U/L 10/12/2024 5:38 PM EDT [facility] ALT, Plasma 30 10 - 35 U/L 10/12/2024 5:38 PM EDT [facility] Alkaline Phosphatase, Plasma 74 46 - 142 U/L 10/12/2024 5:38 PM EDT [facility] Total Bilirubin, Plasma 0.9 0.2 - 1.1 mg/dL 10/12/2024 5:38 PM EDT [facility] eGFRcr 64.2 mL/min/1.7 3m*2 10/12/2024 5:38 PM EDT [facility] Comment:Reported eGFRcr in m L/min/1.73m2 is based the CKD-EPI 2020 equation that does not use a race coefficient. Blood Venous blood specimen / Unknown Venipuncture / Unknown 10/12/2024 4:51 PM EDT 10/12/2024 5:09 PM EDT us Callie [facility] LAB BLOOD ORDERABLES Gracia albarado Result [facility] [address] [place] [address] * (ABNORMAL) CBC w/diff (10/12/2024 4:51 PM EDT) WBC Count 0.84(LL) 3.70 - 10.30 10*3/uL LAB HEMATOLOGY METHOD 10/12/2024 7:25 PM EDT [facility] RBC Count 3.77(L) 3.90 - 5.20 10*6/uL LAB HEMATOLOGY METHOD 10/12/2024 7:25 PM EDT [facility] HGB 11.4 11.2 - 15.7 g/dL LAB HEMATOLOGY METHOD 10/12/2024 7:25 PM EDT [facility] HCT 34.5 34.0 - 45.0 % LAB HEMATOLOGY METHOD 10/12/2024 7:25 PM EDT [facility] Platelet Count 67(L) 155 - 369 10*3/uL LAB HEMATOLOGY METHOD 10/12/2024 7:25 PM EDT [facility] MCV 92 79 - 98 fL LAB HEMATOLOGY METHOD 10/12/2024 7:25 PM EDT [facility] MCH 30.2 26.0 - 32.0 pg LAB HEMATOLOGY METHOD 10/12/2024 7:25 PM EDT [facility] MCHC 33.0 30.7 - 35.5 g/dL LAB HEMATOLOGY METHOD 10/12/2024 7:25 PM EDT [facility] RDW 15.0(H) 11.5 - 14.5 % LAB HEMATOLOGY METHOD 10/12/2024 7:25 PM EDT [facility] MPV 9.0 8.8 - 12.5 fL LAB HEMATOLOGY METHOD 10/12/2024 7:25 PM EDT [facility] nRBC 0.0 <=0.0 per 100 WBCs LAB HEMATOLOGY METHOD 10/12/2024 7:25 PM EDT [facility] Differential Type Manual LAB HEMATOLOGY METHOD 10/12/2024 7:25 PM EDT [facility] Blood Venous blood specimen / Unknown Venipuncture / Unknown 10/12/2024 4:51 PM EDT 10/12/2024 5:09 PM EDT Narrative [facility] - 10/12/2024 7:25 PM EDT [...] Immature Granulocytes is no longer being reported. Callie [facility] LAB BLOOD ORDERABLES Gracia albarado Result [facility] [address] [place] [address] * EKG now - STAT (adult) (10/12/2024 3:39 PM EDT) EKG DIAGNOSIS CLASS Abnormal MUSE ECG Ventricular Rate 114 BPM MUSE ECG Atrial Rate 114 BPM MUSE ECG IN Interval 124 ms MUSE ECG QRSD Interval 84 ms MUSE ECG QT Interval 294 ms MUSE ECG QTC Interval 405 ms MUSE ECG P [place] 73 degrees MUSE ECG R [place] -30 degrees MUSE ECG T Wave [place] 75 degrees MUSE ECG Diagnosis Sinus tachycardia MUSE ECG Diagnosis Possible Right atrial enlargement MUSE ECG Diagnosis Left axis deviation MUSE ECG Diagnosis Incomplete right bundle branch block MUSE ECG Diagnosis Poor R-wave progression MUSE ECG Diagnosis Abnormal ECG MUSE ECG Diagnosis MUSE ECG Diagnosis Confirmed by Jeff Jackson ([id number]) on 10/12/2024 3:46:22 PM MUSE ECG 10/12/2024 3:3 9 PM EDT 10/12/2024 3:46 PM EDT us [...] dose, On Thu10/12/24 at 1655, Routine New 10/12/2024 6:36 PM EDT 2 g 36 .7 mL/hr cefepime (Maxipime) 2 g in sodium chloride 0.9% 100 mL IVPB (vial adapter required) 2 g, Intravenous, Every 8 hours, First dose on Thu10/13/24 at 0230, Until Discontinued, Routine New Bag [...] PRN, Starting on Thu10/14/24 at 2101, Until Thu10/15/24 at 1220, Administer over 2 Minutes, Routine, [...] Nightly, First dose (after last modification) on 10/17/24 at 2100, Until Discontinued, Routine Given 10/17/2024 [...] imaging, 1 dose, Starting on Thu10/13/24 at 202, Until Thu10/13/24 at 2026, Routine, Imaging Protocol [...] on Thu10/13/24 at 2114, Until Thu10/14/24 at 2021, Routine, RVR Given 10/14/2024 8:22 PM EDT [...] 8:53 PM EDT 10 mg nystatin (Mycostatin) [id number] UNIT/ML suspension 500,000 Units 500,000 Units (5 [...] Thu10/18/24 at 1448, Routine, line care Tiotropium Mchenry Monohydrate (Spiriva Respimat) 2.5 MCG/ACT inhaler 2 [...] Discontinued 0931 (Given - Provider: Quan Chavez) 08 (Given - Provider: Quan Chavez) 0856 (Given - Provider: Jeni Clark) gabapentin (Neurontin) capsule 300 mg 300 mg, Oral, 3 times daily, First dose on Corrina 10/13/24 at 0900, Until Discontinued 0933 (Given - Provider: Quan Chavez - Comment: barcode not scanned, ripped, i witnessed administration kirsten torres RN)161 (Given - Provider: Quan Chavez)2138 (Given - Provider: Erma Cary RN) 0836 (Given - Provider: Quan Chavez)154 (Given - Provider: Quan Chavez)2019 (Given - Provider: Tim Oneal) 0856 (Given - Provider: Jeni Clark) hydrOXYzine HCl (Atarax) tablet 25 mg 25 mg, Oral, 3 times daily, First dose (after last modification) on 10/15/24 at 1045, Until Discontinued, Routine 0931 (Given - Provider: Quan Chavez)161 (Given - Provider: Quan Chavez)2138 (Given - Provider: Erma Cary RN) 0836 (Given - Provider: Quan Chavez)154 (Given - Provider: Quan Chavez)2019 (Given - [...] on Thu10/13/24 at 0830, Until Discontinued, Routine 09 (Given - Provider: Quan Chavez)1233 (Given - [...] Provider: Jeni Clark) lidocaine-EPINEPHrine (Xylocaine W/EPI) 1 %[id number] injection 20 mL 20 mL, Infiltration, Once, [...] Provider: Quan Chavez)1232 (Given - Provider: Quan Chavez)161 (Given - Provider: Quan Chavez)2135 (Given - [...] Cary RN) 0837 (Given - Provider: Quan Chavez)2019 (Given - Provider: Tim Oneal) 0855 (Given - Provider: Jeni Clark) mometasone-formoterol (Dulera 200) 200-5 MCG/ACT inhaler 2 puff(Linked Group 1) 2 puff, Inhalation, 2 times daily, First dose on Corrina 10/13/24 at 0900, Until Discontinued, Routine 0938 (Given - Provider: Quan Chavez)2139 (Given - Provider: Erma Cary RN) 0837 (Given - Provider: Quan Chavez)2031 (Given - Provider: Tim Oneal) 0857 (Given - Provider: Jeni Clark) montelukast (Singulair) tablet 10 mg 10 mg, Oral, Nightly, First dose on Thu10/12/24 at 2335, Until Discontinued, Routine 2137 (Given - Provider: Erma Cary, JOSEM ARTIN) 2020 (Given - Provider: Tim Oneal) nystatin (Mycostatin) [id number] UNIT/ML suspension 500,000 Units 500,000 Units (5 mL), Swish & Swallow, 4 times daily, 56 doses, First dose on Corrina 10/13/24 at 1400, Last dose on Corrina 10/27/24 at 0900, Routine 0929 (Given - Provider: Quan Chavez)1446 (Given - Provider: Quan Chavez)1849 (Given - Provider: Quan Chavez)213 (Given - Provider: Erma Cary RN) 0836 [...] on Thu10/12/24 at 2215, Until Discontinued, Routine 09 (Given - Provider: Quan Chavez)2139 (Given - Provider: Erma Cary RN) 0952 (Canceled Entry - Provider: Quan Chavez)230 (Given - Provider: Tim Oneal) 0857 (Given - Provider: Jeni Clark) Tiotropium Mchenry Monohydrate (Spiriva Respimat) 2.5 MCG/ACT inhaler 2 [...] Oral, 3 times daily PRN, Starting on Corrina 10/13/24 at 2130, Until 10/18/24 at 1448, Routine, cough 2036 (Given - [...] care Linked Groups Order Group 1: Tiotropium Mchenry Monohydrate (Spiriva Respimat) 2.5 MCG/ACT inhaler 2 [...] documented as of this encounter Care Teams Scrap [employer]er Relationship Specialty Start Date End Date Laurie Gutierrez MD [address] [place] [id number] PCP - General 12/09/23 Joshua Martínez MD [address] [place] [address] [phone] Consulting Physician Radiation Oncology 09/19/24 documented as of this encounter
--- OUTSIDE RECORDS SUMMARY | 2024-10-20 00:10 | XMS_ITS | Encounter Summary ---
Author Organization Healthcare Address [address] [place] [address] Care Team Providers Care Assistant Women'S Rowing Coach Name Role Phone Laurie Gutierrez MD Primary Care Provider [phone] Joshua Martínez MD Unavailable Jasmina Smith LPN Unavailable Unavailable Encounter Details Date Type Department Care Team (Latest Contact Info) Description 10/20/2024 12:10 AM EDT - 10/20/2024 9:21 AM EDT Hospital Encounter [facility] Radiation [address] [id number] [place] [address] Discharge Disposition: Still a Patient 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 [...] any time in the past 12 m [facility], were you homeless or living in a mcfp (including now)? No 10/14/2024 CAGE ASSESSMENT Answer [...] drink first t laurie in the morning (EYE-PROFESSOR SCULPTURE) to steady your nerves or to get rid of a hangover? 0 11/19/2023 CAGE Questionnaire Score 0 024 Utilities Answer Date Recorded In the past 12 months has e [employer], Logical Apps, oil, or water [employer] threatened to shut off services in your [...] 31G X 5 MM misc 09/19/2024 5 Blood Glucose Monitoring Suppl (Klick2Contact Verio Flex System) w/Device kit 09/19/2024 5 carvedilol (Coreg) 12.5 MG tablet Take 1 tablet by mouth 2 times a day with meals. 5 ciclopirox (Penlac) 8 % solution Apply over affected nail fold daily. 5 Continuous Glucose On Site Wastewater Systems Technician (Sentonscom G7 On Site Wastewater Systems Technician) device USE TO MEASURE BLOOD SUGAR DIRECTED 09/29/2024 5 Continuous Glucose Sensor (Dexcom G6 Sensor) mis USE DIRECTED TO MEASURE BLOOD SUGAR. REPLACE SENSOR EVERY 10 DAYS 09/01/2024 5 FREESTYLE LITE test strip USE TO [...] Can be adjusted per the MD at [facility] 10 mL 12 10/18/2024 Lantus SoloStar 100 UNIT/ML injection pen Inject under the skin 2 times a day. 10/18/2024 lidocaine (Xylocaine) 2 % solution Take 5 mL by mouth as needed for mild pain. 10/18/2024 nystatin (Mycostatin) 544076 UNIT/ML suspension Swish and swallow 5 mL 4 times a day for 39 doses. 195 mL 10/18/2024 ondansetron (Zofran) 8 MG tablet Take 1 tablet by mouth every 8 hours as needed for nausea or vomiting. ondansetron (Zofran) 8 MG tabletIndication s:Extensive stage [...] 10/04/2024 5 documented as of this encounter Plan of Treatment Upcoming Encounters Date Type Department Care Team ([facility] st Contact Info) Description 11/29/2024 10:30 AM EDT Clinical Support [facility] [address] [facility], 2nd [place] [address] 11/29/2024 11:00 AM EDT Office Visit [facility] [address] [facility], 2nd [place] [address] Satnam Colvin MD [address] [facility] Nuria Degroot [facility] [address] [place] [address] 11/29/2024 12:30 PM EDT Appointment [facility] 1 [address] [place] [address] 11/30/2024 1:30 PM EDT Appointment [facility] 1 [address] [place] [address] 12/01/2024 2:00 PM EDT Appointment [facility] 1 [address] [place] [address] 12/06/2024 11:40 AM EDT Appointment [facility] Radiation [address] [id number] [place] [address] Haven Blum, VP DESIGN [address] [facility] [address] [place] [address] 01/19/2025 9:30 AM EDT Appointment [facility] S Radiology [address], 1st [place] [address] 01/19/2025 10:45 AM EDT Office Visit [place] [facility] [address], [address]st [place] [address] Abhilash Bangura MD [address] [place] [address] 03/08/2025 1:00 PM EDT Office Visit [facility] [place] [facility] [address] [place] [address] Teresita Oconnell MD [address] [place] [address] documented as of this encounter [...] documented as of this encounter Care Teams Assistant Women'S Rowing Coach Relationship Specialty Start Date End Date Laurie Gutierrez MD [address] [place] [address] PCP - General 12/09/23 Joshua Martínez MD [address] [facility] [address] [place] [address] Consulting Physician Radiation Oncology 09/19/24 Jasmina Smith LPN VALUE-BASED [place] [address] [facility] Nurse 10/19/24 11/01/24 documented as of this encounter
--- OUTSIDE RECORDS SUMMARY | 2024-10-20 09:22 | XMS_ITS | Encounter Summary ---
Author Organization Healthcare Address [address] [place] [address] Care Team Providers Care Tool Grinder Name Role Phone Laurie Gutierrez MD Primary Care Provider Joshua Martínez MD Unavailable Jasmina Smith LPN Unavailable Unavailable Encounter Details Date Type Department Care Team (Latest Contact Info) Description 10/20/2024 9:22 AM EDT - 10/20/2024 11:59 PM EDT Hospital Encounter [facility] Radiation [id number] [place] [address] Discharge Disposition: Still a Patient 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 [...] place to sleep or slept in a custodial (including now)? No 11/20/2023 PHQ-9 Answer Date [...] any time in the past 12 m [facility], were you homeless or living in a custodial (including now)? No 10/14/2024 CAGE ASSESSMENT Answer [...] drink first t laurie in the morning (EYE-BOOK SEWING MACHINE OPERATOR) to steady your nerves or to get rid of a hangover? 0 11/19/2023 CAGE Questionnaire Score 0 024 Utilities Answer Date Recorded In the past 12 months has e [employer], [employer], oil, or water [employer] threatened to shut off services in your [...] misc 09/19/2024 5 Blood Glucose Monitoring Suppl ([employer] Verio Flex System) w/Device kit 09/19/2024 5 carvedilol (Coreg) 12.5 MG tablet Take 1 tablet by mouth 2 times a day with meals. 5 ciclopirox (Penlac) 8 % solution Apply over affected nail fold daily. 5 Continuous Glucose Tape Duplicator ([employer]athom[employer]com G7 Tape Duplicator) device USE TO MEASURE BLOOD SUGAR DIRECTED [...] Can be adjusted per the MD at [facility] 10 mL 12 10/18/2024 Lantus SoloStar 100 UNIT/ML injection pen Inject under the skin 2 times a day. 10/18/2024 lidocaine (Xylocaine) 2 % solution Take 5 mL by mouth as needed for mild pain. 10/18/2024 nystatin (Mycostatin) 776296 UNIT/ML suspension Swish and swallow 5 mL [...] Upcoming Encounters Date Type Department Care Team ([facility] st Contact Info) Description 11/29/2024 10:30 AM EDT Clinical Support [facility] Head[facility] Neck [facility] Respiratory [address] [facility], [address]nd [place] [address] 11/29/2024 11:00 AM EDT Office Visit [facility] Head[facility] Neck [facility] Respiratory [address] [facility], [address]nd [place] [address] Satnam Colvin MD [address] [facility] Nuria Degroot [facility] [address] [place] [address] 11/29/2024 12:30 PM EDT Appointment [facility] [address] [place] [address] 11/30/2024 1:30 PM EDT Appointment [facility] [address] [place] [address] 12/01/2024 2:00 PM EDT Appointment [facility] [address] [place] [address] 12/06/2024 11:40 AM EDT Appointment [facility] Radiation [id number] [place] [address] Haven Blum, ECOMMERCE MERCHANDISING MANAGER [address] [facility] [address] [place] [address] 01/19/2025 9:30 AM EDT Appointment [facility] S Radiology [address]st [place] [address] 01/19/2025 10:45 AM EDT Office Visit [place] [facility] [address], [address] [place] [address] Abhilash Bangura MD [address] [place] [address] 03/08/2025 1:00 PM EDT Office Visit [facility] Ralph Wenceslao [address] [place] [address] Teresita Oconnell MD [address] [place] [address] documented as of this encounter [...] documented as of this encounter Care Teams Tool Grinder Relationship Specialty Start Date End Date Laurie Gutierrez MD [address] [place] [address] PCP - General 12/09/23 Joshua Martínez MD [address] [facility] [address] [place] [address] Consulting Physician Radiation Oncology 09/19/24 Jasmina Smith LPN VALUE-BASED [place] [address] [facility] Nurse 10/19/24 11/01/24 documented as of this encounter
--- OUTSIDE RECORDS SUMMARY | 2024-10-20 11:08 | XMS_ITS ---
Author Organization [facility] [place] Address [address] [place] [address] Care Team Providers Care Umbrella Tipper Hand Name Role Phone TRAY DYE Unavailable [phone] Tray Dey MD Unavailable Unavailable REASON FOR VISIT patti outreach call Medications Medication SIG (Take, Route, Frequency, Duration) Notes Start Date End Date Status Alcohol Prep Pads 70 % as directed for 30 days Active hydrOXYzine HCl 25 MG 1 tablet as needed Orally three times a day for 30 days Active FLUoxetine HCl 40 mg take 1 tablet oral once aday for 90 days Active Benzonatate 100 MG 1 capsule as needed Orally Three times a day for 15 days Active Xarelto 20 MG 1 tablet with food Orally Once a day for 30 days Active Dexcom G7 Sensor - as directed 09/26/2024 Active Dexcom G7 Agricultural Equipment Operator - as directed 09/26/2024 Active Ferrous Sulfate 325 (65 Fe) MG 1 tablet Orally once a day for 30 days 08/23/2024 Active tiZANidine HCl 2 MG 1 tablet at bedtime as needed Orally Once a day for 10 days 08/23/2024 Active rOPINIRole HCl 1 mg 1 tablet orally twic e a day for 30 day(s) 08/23/2024 Active Ciclopirox 8 % 1 application Senior Civil Engineer ally Once a day for 30 days 07/08/2024 Active Dexcom G6 Transmitter - as directed for 90 days Active Lipitor 40 MG 1 tablet Orally Once a day for 90 days Active Cetirizine HCl 10 mg TAKE 1 TABLET 1 AURELIA E EACH DAY daily for 90 days Active Triamterene-HCTZ 37.5-25 MG 1 tablet in the morning Orally Once a day for 90 days Active Carvedilol 12.5 mg TAKE 1 TABLET 2 TIME S EACH DAY WITH FOOD for 30 Active Benzonatate 200 MG 1 capsule as needed Orally Three times a day for 30 days 07/08/2024 Active Accu-Chek Softclix Lancets - USE TO TEST BLOOD SUGAR 3 TIMES EACH DAY for 30 Active Dexcom G6 Agricultural Equipment Operator - as directed 02/12/2024 Active Protonix 40 MG 1 tablet Orally Once a day for 90 days Active Vitamin D-[address] 25 MCG (1000 UT) 1 tablet Orally Once a day Active Gabapentin 600 MG 1 capsule Orally 4 t imes a day for 28 days oncology 12/07/2023 Active dexAMETHasone 2 MG 1 tablet Orally twic e a day Active Insulin Lispro 100 UNIT/ML inject 15 units with meals Active Vitamin B-12 ER 1000 MCG 1 tablet Orally Once a day for 90 days Active metFORMIN HCl 1000 MG 1 tablet with meal s Orally Twice a day for 30 days Active Pantoprazole Sodium 40 mg TAKE 1 TABLET 1 TIME EACH DAY for 30 Active Jardiance 25 mg TAKE 1 TABLET 1 TIME EACH DAY for 90 days Active Januvia 50 MG 1 tablet Orally Once a day for 30 days Active Breztri Aerosphere 160-9-4.8 MCG/ACT INHALE 2 PUFFS 2 TIMES EACH DAY for 30 Active Montelukast Sodium 10 MG 1 tablet Orally Once a day for 30 days Active Calcium 600/Vitamin D 600-10 MG-MCG 1 tablet with a meal Orally Once a day for 30 days Active Calcium Carbonate Ac tive FreeStyle Lite Test - as directed In Vitro Active Insulin Glargine-yfgn 100 UNIT/ML inject 20 units under the skin Subcutaneous nightly Active Magnesium Oxide 400 MG 1 tablet with citlali d Orally twice a day 10/20/2024 Active Ondansetron 8 MG 1 tablet on the tong ue and allow to dissolve as needed Orally every 8 hours Active Compazine Active Melatonin Active Nystatin 936517 UNIT/ML swish and swallo w 5mL Mouth/Throat Four times a day for 39 doses 10/20/2024 Active Encounters Encounter Location Date Provider Diagnosis [facility] [address] [place] [address] 10/20/2024 TRAY DEY Plan Of Treatment Next Appt Details Provider Name:Yamilet heath, 11/22/2024 10:15:00 AM, [address], [place], [address], Provider Name:Yamilet heath, 02/27/2025 10:30:00 AM, [address], [place], [address], Progress Notes * CARLITOS Teresa ZamudioDOB: [birth year] (63 yo F)Acc No.[id number]:10/20/2024 Patient: Teresa CAMPOS :1960 A ge:63 Y S ex:Female Address:[address] [place] [address], [place], [place], [facility] Subjective: * Chief Complaints: * T oc outreach call * HPI: T ransition of care - Outreach Call: Discharge Information D ischarge Facility : . , [facility] D ischarge date : 0 10/18/2024 . D ischarge Dx : . sepsis with febrile severe neutropenia due to CAP I nitial contact date : 0 10/19/2024 .left vm S econd contact date : 0 10/20/2024 .left vm T hird contact date : 10/20/2024 pt returned my call Outreach Interaction H ow would you describe your symptoms since discharge? H ave improved since discharge . D o you have any concerns since discharge??No concerns at this time . Reviewed non-medication related discharge instructions D o you understand the discharge instructions given at the hospital? Y es . H ave you had any labs or tests done since leaving the hospital? N o . W as home health was ordered with discharge??No . W as DME was ordered with discharge? N o . Medication Review performed against Discharge Summary M edication Review performed against Discharge Summary ? Y es . P atient is taking medications as prescribed on discharge instructions ? Y es . Outreach Education - I nstructed patient to bring all medications (OTC & Supplements) to appointment . TCM Visit details T CM appointment made? . * Medical History: * Surgical History: * Hospitalization/Major Diagno stic Procedure: * Medications: T akingCompazine Ondansetron 8 MG Tablet Disintegrating 1 tablet on the tongue and allow to dissolve as needed Orally every 8 hours Nystatin 651215 UNIT/ML Suspension swish and swallow 5mL Mouth/Throat Four times a day for 39 doses Melatonin Magnesium Oxide 400 MG Tablet 1 tablet with food Orally twice a day Insulin Glargine-yfgn 100 UNIT/ML Solution inject 20 units under the skin Subcutaneous nightly FreeStyle Lite Test - Strip as directed In Vitro Calcium Carbonate Calcium 600/Vitamin D 600-10 MG-MCG Tablet 1 tablet with a meal Orally Once a day Januvia 50 MG Tablet 1 tablet Orally Once a day Jardiance 25 mg Tablet TAKE 1 TABLET 1 TIME EACH DAY Pantoprazole Sodium 40 mg Tablet Delayed Release TAKE 1 TABLET 1 TIME EACH DAY Montelukast Sodium 10 MG Tablet 1 tablet Orally Once a day Breztri Aerosphere 160-9-4.8 MCG/ACT Aerosol INHALE 2 PUFFS 2 TIMES EACH DAY metFORMIN HCl 1000 MG Tablet 1 tablet with meals Orally Twice a day Vitamin B-12 ER 1000 MCG Tablet Extended Release 1 tablet Orally Once a day Insulin Lispro 100 UNIT/ML Solution inject 15 units with meals dexAMETHasone 2 MG Tablet 1 tablet Orally twice a day Gabapentin 600 MG Tablet 1 capsule Orally 4 times a day , Notes to Pharmacist: oncologyVitamin D-[address] 25 MCG (1000 UT) Tablet 1 tablet Orally Once a day Protonix 40 MG Tablet Delayed Release 1 tablet Orally Once a day Dexcom G6 Agricultural Equipment Operator - Device as directed Accu-Chek Softclix Lancets - Miscellaneous USE TO TEST BLOOD SUGAR 3 TIMES EACH DAY Benzonatate 200 MG Capsule 1 capsule as needed Orally Three times a day Carvedilol 12.5 mg Tablet TAKE 1 TABLET 2 TIMES EACH DAY WITH FOOD Triamterene-HCTZ 37.5-25 MG Tablet 1 tablet in the morning Orally Once a day Cetirizine HCl 10 mg Tablet TAKE 1 TABLET 1 TIME EACH DAY daily Lipitor 40 MG Tablet 1 tablet Orally Once a day Dexcom G6 Transmitter - Miscellaneous as directed Ciclopirox 8 % Solution 1 application Externally Once a day rOPINIRole HCl 1 mg 1 tablet orally twice a day tiZANidine HCl 2 MG Tablet 1 tablet at bedtime as needed Orally Once a day Ferrous Sulfate 325 (65 Fe) MG Tablet 1 tablet Orally once a day Dexcom G7 Agricultural Equipment Operator - Device as directed Dexcom G7 Sensor - Miscellaneous as directed Benzonatate 100 MG Capsule 1 capsule as needed Orally Three times a day FLUoxetine HCl 40 mg Capsule take 1 tablet oral once aday hydrOXYzine HCl 25 MG Tablet 1 tablet as needed Orally three times a day Xarelto 20 MG Tablet 1 tablet with food Orally Once a day Alcohol Prep Pads 70 % Pad as directed Taking Compazine Taking Ondansetron 8 MG Tablet Disintegrating 1 tablet on the tongue and allow to dissolve as needed Orally every 8 hours Taking Nystatin 902764 UNIT/ML Suspension swish and swallow 5mL Mouth/Throat Four times a day for 39 doses Taking Melatonin Taking Magnesium Oxide 400 MG Tablet 1 tablet with food Orally twice a day Taking Insulin Glargine-yfgn 100 UNIT/ML Solution inject 20 units under the skin Subcutaneous nightly Taking FreeStyle Lite Test - Strip as directed In Vitro Taking Calcium Carbonate Taking Calcium 600/Vitamin D 600-10 MG-MCG Tablet 1 tablet with a meal Orally Once a day Taking Januvia 50 MG Tablet 1 tablet Orally Once a day Taking Jardiance 25 mg Tablet TAKE 1 TABLET 1 TIME EACH DAY Taking Pantoprazole Sodium 40 mg Tablet Delayed Release TAKE 1 TABLET 1 TIME EACH DAY Taking Montelukast Sodium 10 MG Tablet 1 tablet Orally Once a day Taking Breztri Aerosphere 160-9-4.8 MCG/ACT Aerosol INHALE 2 PUFFS 2 TIMES EACH DAY Taking metFORMIN HCl 1000 MG Tablet 1 tablet with meals Orally Twice a day Taking Vitamin B-12 ER 1000 MCG Tablet Extended Release 1 tablet Orally Once a day Taking Insulin Lispro 100 UNIT/ML Solution inject 15 units with meals Taking dexAMETHasone 2 MG Tablet 1 tablet Orally twice a day Taking Gabapentin 600 MG Tablet 1 capsule Orally 4 times a day , Notes to Pharmacist: oncologyTaking Vitamin D-[address] 25 MCG (1000 UT) Tablet 1 tablet Orally Once a day Taking Protonix 40 MG Tablet Delayed Release 1 tablet Orally Once a day Taking Dexcom G6 Agricultural Equipment Operator - Device as directed Taking Accu-Chek Softclix Lancets - Miscellaneous USE TO TEST BLOOD SUGAR 3 TIMES EACH DAY Taking Benzonatate 200 MG Capsule 1 capsule as needed Orally Three times a day Taking Carvedilol 12.5 mg Tablet TAKE 1 TABLET 2 TIMES EACH DAY WITH FOOD Taking Triamterene-HCTZ 37.5-25 MG Tablet 1 tablet in the morning Orally Once a day Taking Cetirizine HCl 10 mg Tablet TAKE 1 TABLET 1 TIME EACH DAY daily Taking Lipitor 40 MG Tablet 1 tablet Orally Once a day Taking Dexcom G6 Transmitter - Miscellaneous as directed Taking Ciclopirox 8 % Solution 1 application Externally Once a day Taking rOPINIRole HCl 1 mg 1 tablet orally twice a day Taking tiZANidine HCl 2 MG Tablet 1 tablet at bedtime as needed Orally Once a day Taking Ferrous Sulfate 325 (65 Fe) MG Tablet 1 tablet Orally once a day Taking Dexcom G7 Agricultural Equipment Operator - Device as directed Taking Dexcom G7 Sensor - Miscellaneous as directed Taking Benzonatate 100 MG Capsule 1 capsule as needed Orally Three times a day Taking FLUoxetine HCl 40 mg Capsule take 1 tablet oral once aday Taking hydrOXYzine HCl 25 MG Tablet 1 tablet as needed Orally three times a day Taking Xarelto 20 MG Tablet 1 tablet with food Orally Once a day Taking Alcohol Prep Pads 70 % Pad as directed DiscontinuedPolyethylene Glycol levETIRAcetam Amiodarone HCl 200 mg Tablet TAKE 1 TABLET 1 TIME EACH DAY Lidocaine 5 % Ointment 1 application as needed Externally Three times a day Naproxen 375 MG Tablet 1 tablet with food or milk as needed Orally every 12 hrs Clotrimazole-Betamethasone 1-0.05 % Cream 1 application Externally Twice a day Dexcom G4 Sensor - Miscellaneous as directed Omeprazole 20 mg Capsule Delayed Release TAKE 1 CAPSULE 1 TIME EACH DAY daily Furosemide 20 MG Tablet 1 tablet Orally Once a day levoFLOXacin 500 MG Tablet 1 tablet Orally Once a day Calcium 600 MG Tablet 1 tablet with meals Orally Twice a day Symbicort 160-4.5 MCG/ACT Aerosol 1 puff as needed Inhalation every 4 hrs oxyCODONE-Acetaminophen 5-325 MG Tablet 1 tablet as needed Orally every 6 hrs Fiber 625 MG Tablet 2 tablets as needed Orally once a day Medication List reviewed and reconciled with the patientDiscontinued Polyethylene Glycol Discontinued levETIRAcetam Discontinued Amiodarone HCl 200 mg Tablet TAKE 1 TABLET 1 TIME EACH DAY Discontinued Lidocaine 5 % Ointment 1 application as needed Externally Three times a day Discontinued Naproxen 375 MG Tablet 1 tablet with food or milk as needed Orally every 12 hrs Discontinued Clotrimazole-Betamethasone 1-0.05 % Cream 1 application Externally Twice a day Discontinued Dexcom G4 Sensor - Miscellaneous as directed Discontinued Omeprazole 20 mg Capsule Delayed Release TAKE 1 CAPSULE 1 TIME EACH DAY daily Discontinued Furosemide 20 MG Tablet 1 tablet Orally Once a day Discontinued levoFLOXacin 500 MG Tablet 1 tablet Orally Once a day Discontinued Calcium 600 MG Tablet 1 tablet with meals Orally Twice a day Discontinued Symbicort 160-4.5 MCG/ACT Aerosol 1 puff as needed Inhalation every 4 hrs Discontinued oxyCODONE- Acetaminophen 5-325 MG Tablet 1 tablet as needed Orally every 6 hrs Discontinued Fiber 625 MG Tablet 2 tablets as needed Orally once a day Medication List reviewed and reconciled with the patient Objective: * Vitals: * Physical Examination: Assessment: Plan: * Treatment: * Procedure Codes: * true * Date: Generated for Chato gonzalez/Nica/Brittonsmitting on: 0 11/15/2024 02:01 PM EDT History and Physical Notes * HPI (History of Present Illness) Category Sub-Category Detail Notes Category Not es Transition of care - Outreach Call Discharge Information Discharge Facility :: [facility] Discharge date :: 10/18/2024 . Discharge Dx :: .sepsis with febrile severe neutropenia due to CAP Initial contact date :: 10/19/2024 .left Second contact date :: 10/20/2024 .left Third contact date :: 10/20/2024 pt retu rned my call Outreach Interaction How would you descr sunny your symptoms since discharge?: Have improved since discharge . Do you have any concerns since discharge ?: No concerns at this time . Reviewed non-medication rela samaria discharge instructions Do you understand the discharge instructions given at the hospital?: Yes . Have you had any labs or tests done sinc e leaving the hospital?: No . Was home health was ordered with dischar ge?: No . Was DME was ordered with discharge?: No . Medication Review performed against Discharge Summary Medication Review performed against Discharge Summary ?: Yes . Patient is taking medications as prescri bed on discharge instructions ?: Yes . Outreach Education -: Instructed patien t to bring all medications (OTC & Supplements) to appointment . TCM Visit details TCM appointment made?: .
--- OUTSIDE RECORDS SUMMARY | 2024-10-21 10:30 | XMS_ITS ---
Author Organization [facility] [place] Address [address] [place] [address] Care Team Providers Care Director Broadcast Name Role Phone TRAY DEY Unavailable [phone] Tray Dey MD Unavailable Unavailable Yamilet Coleman Unavailable [phone] Allergies Allergen (clinical drug ingredient) Drug/Non Drug Allergy documented on EMR Reaction Allergy Type Onset Date Status Keflex Unknown Drug Allergy Active lisinopril Unknown Drug Allergy Active meloxicam Unknown Drug Allergy Active Reason For Referral Reason home health, PT, OT Diagnosis 1 Pneumonia, unspecifi ed organism (J18.9) [facility] [place] Referring Provider First Name Yamilet Referring Provider Last Name Jared Referring Provider Speciality Physician Building Maintenance Repairer Referred Provider Home Health 2, Amedy sasha Referred Provider Specialty Other Medica l Care General Notes NIRAJ MORALESE 10/28 01:52:00 PM > FAXED Referral Priority Routine [facility] f/u/NEEDS A1C/DM EYE EXAM/MCUC/CMP Medications Medication SIG (Take, Route, Frequency, Duration) Notes Start Date End Date Status Compazine Active Ondansetron 8 MG 1 tablet on the tong ue and allow to dissolve as needed Orally every 8 hours Active Nystatin 745659 UNIT/ML swish and swallo w 5mL Mouth/Throat Four times a day for 39 doses 10/20/2024 Active Melatonin Active Magnesium Oxide 400 MG 1 tablet with citlali d Orally twice a day 10/20/2024 Active Carvedilol 25 MG 1 tablet Orally Twic e a day for 30 days Active hydrOXYzine HCl 25 MG 1 tablet as needed Orally three times a day for 30 days Active Azithromycin 250 MG take 2 tablets the day then 1 daily Orally daily for 5 days 10/21/2024 Active Xarelto 20 MG 1 tablet with food Orally Once a day for 30 days Active Alcohol Prep Pads 70 % as directed for 30 days Active Dexcom G7 Hitch Technician - as directed 09/26/2024 Active Dexcom G7 Sensor - as directed 09/26/2024 Active Benzonatate 100 MG 1 capsule as needed Orally Three times a day for 15 days Active FLUoxetine HCl 40 mg take 1 tablet oral once aday for 90 days Active Ferrous Sulfate 325 (65 Fe) MG 1 tablet Orally once a day for 30 days 08/23/2024 Active Lipitor 40 MG 1 tablet Orally Once a day for 90 days Active Dexcom G6 Transmitter - as directed for 90 days Active Ciclopirox 8 % 1 application Pad Machine Operator ally Once a day for 30 days 07/08/2024 Active rOPINIRole HCl 1 mg 1 tablet orally twic e a day for 30 day(s) 08/23/2024 Active tiZANidine HCl 2 MG 1 tablet at bedtime as needed Orally Once a day for 10 days 08/23/2024 Active Accu-Chek Softclix Lancets - USE TO TEST BLOOD SUGAR 3 TIMES EACH DAY for 30 Active Benzonatate 200 MG 1 capsule as needed Orally Three times a day for 30 days 07/08/2024 Active Triamterene-HCTZ 37.5-25 MG 1 tablet in the morning Orally Once a day for 90 days Active Cetirizine HCl 10 mg TAKE 1 TABLET 1 AURELIA E EACH DAY daily for 90 days Active Dexcom G6 Hitch Technician - as directed 02/12/2024 Active Insulin Lispro 100 UNIT/ML inject 15 units with meals Active dexAMETHasone 2 MG 1 tablet Orally twic e a day Active Gabapentin 600 MG 1 capsule Orally 4 t imes a day for 28 days oncology 12/07/2023 Active Vitamin D-[address] 25 MCG (1000 UT) 1 tablet Orally Once a day Active Protonix 40 MG 1 tablet Orally Once a day for 90 days Active Pantoprazole Sodium 40 mg TAKE 1 TABLET 1 TIME EACH DAY for 30 Active Montelukast Sodium 10 MG 1 tablet Orally Once a day for 30 days Active Breztri Aerosphere 160-9-4.8 MCG/ACT INHALE 2 PUFFS 2 TIMES EACH DAY for 30 Active metFORMIN HCl 1000 MG 1 tablet with meal s Orally Twice a day for 30 days Active Vitamin B-12 ER 1000 MCG 1 tablet Orally Once a day for 90 days Active FreeStyle Lite Test - as directed In Vitro Active Calcium Carbonate Ac tive Calcium 600/Vitamin D 600-10 MG-MCG 1 tablet with a meal Orally Once a day for 30 days Active Januvia 50 MG 1 tablet Orally Once a day for 30 days Active Jardiance 25 mg TAKE 1 TABLET 1 TIME EACH DAY for 90 days Active Insulin Glargine-yfgn 100 UNIT/ML inject 20 units under the skin Subcutaneous nightly Active 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 Tobacco Use: 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 Observation Description Date Details (start date - stop date) Former Smoker NA - NA Tobacco Control (Standard) Question Answer Notes Tobacco use: Former smoker Vital Signs Temperature 98.2 degrees Fahrenheit 10/22/19 25 Heart Rate 120 /min 10/21/2024 Blood pressure systolic 136 mm Hg 10/22/19 25 Blood pressure diastolic 84 mm Hg 025 Height 67 in 10/21/2024 Respiratory Rate 20 /min 10/21/2024 Oximetry 95 % 10/21/2024 Encounters Encounter Location Date Provider Diagnosis [facility] [address] [place] [address] 10/21/2024 Yamilet Coleman Pneumonia, unspecified organism J18.9 ; Malignant neoplasm of unspecified part of unspecified bronchus or lung C34.90 ; Essential (primary) hypertension I10 ; Acute cough R05.1 ; Weakness generalized R53.1 ; COPD without exacerbation J44.9 and Anxiety F41.9 Assessments Encounter Date Diagnosis (ICD Code) Assessment Notes Treatment Notes Treatment Clinical Notes Section Notes 10/21/2024 Pneumonia, unspecified organism (ICD-10 - J18.9) Will treat with antibiotics due to history and symptoms. pt recent tx for PNA , Encourage rest, hydration, and supportive care pt is currently on dexamethasone for swelling on brain 10/21/2024 Malignant neoplasm of unspecified part of unspecified bronchus or lung (ICD-10 - C34.90) follows with pulm and oncology pt would benefit from home health due to starting treatment 10/21/2024 Essential (primary) hypertension (ICD-10 - I10) increasing carvediolol dose today 10/21/2024 Acute cough (ICD-10 - R05.1) 10/21/2024 Weakness generalized (ICD-10 - R53.1) 10/21/2024 COPD without exacerbation (ICD-10 - J44.9) stable. has stopped smoking 10/21/2024 Anxiety (ICD-10 - F41.9) will increase hydroxyzine to take as needed during the day Plan Of Treatment Medication Medication Name Sig Start Date Stop Date Notes Carvedilol 25 MG 1 tablet Orally Twic e a day for 30 days Azithromycin 250 MG take 2 tablets the irst day then 1 daily Orally daily for 5 days 10/21/2024 Treatment Notes Assessment Notes Pneumonia, unspecified organism Will treat with antibiotics due to history and symptoms. pt recent tx for PNA , Encourage rest, hydration, and supportive care pt is currently on dexamethasone for swelling on brain Malignant neoplasm of unspec ified part of unspecified bronchus or lung follows with pulm and oncology pt would benefit from home health due to starting treatment Essential (primary) hypertension increas ing carvediolol dose today COPD without exacerbation stable. has st opped smoking Anxiety will increase hydrox yzine to take as needed during the day Referrals Referral Date Details 10/21/2024 10/21/2024, home hea lth, PT, OT, [facility] 2 Next Appt Details Follow Up: 4 Weeks, Reason: Provider Name:Yamilet heath, 11/22/2024 10:15:00 AM, [address], [place], [address], Provider Name:Yamilet heath, 02/27/2025 10:30:00 AM, [address], [place], [address], Progress Notes * Teresa URBINADOB: [birth year] (63 yo F)Acc No.[id number]:10/21/2024 Progress Note Patient: Isis REY Teresa Zamudio Provider: Carolyn Coleman :1960 A ge:63 Y S ex:Female Date:10/21/2024 Address:[address] [place] [address] RD, [place], [id number] Subjective: * Chief Complaints: * [facility] [place] HFU DC 6.3.25 AND 1 month f/u/NEEDS A1C/DM EYE EXAM/MCUC/CMP * HPI: C onstitutional: 63 y/o female with PMHX significant for htn, DM, copd, anxiety, and hld presents in for f/u. New dx of small cell lung cancer with immunocompromised state. has quit smoking. She states all her specialists now are at . pt is now starting chemo and is about to start radiation. Pt here for hospital follow up. She was admitted form 10/12-10/18. The patient presented following a recent hospitalization for pneumonia and sepsis, seeking management for persistent symptoms and heart rate concerns. She finished a round of abx in the hospital.? SUBJECTIVE: The patient reported feeling better since the hospitalization but noted that food still did not taste good, experiencing shortness of breath and a racing heart, which contributed to fatigue. The patient was currently on carvedilol, which was not effectively controlling the heart rate. Additionally, the patient expressed concern about upcoming radiation and chemotherapy treatments, which had already resulted in hair loss. The patient reported taking a long time to dress and feeling exhausted afterward. The patient also mentioned a low blood sugar event with a reading of 47. Pertinent negatives include the patient reports not having any adverse reactions to the prescribed medications. ASSESSMENT: 1. Pneumonia: The patient experienced pneumonia, which was treated in the hospital. Residual symptoms include shortness of breath and altered taste. The patient's compromised immune system may prolong recovery. Lung sounds indicated some remaining congestion, suggesting incomplete resolution of the infection. 2. Tachycardia: The patient experienced a racing heart, likely exacerbated by the current carvedilol regimen's inadequacy. The patient previously used metoprolol successfully in the hospital, indicating a need to adjust the current beta- hunter dose for adequate control. 3. Chemotherapy-induced alopecia: The patient reported hair loss following chemotherapy, suggesting a typical side effect of treatment. The patient was undergoing chemotherapy and radiation therapy for an unspecified condition, with some emotional distress noted regarding these treatments. PLAN: Treatment: - Increased carvedilol to 25 mg twice daily to manage heart rate. - Prescribed azithromycin for five days to address residual pneumonia symptoms. - Suggested mucinex for five days to thin lung secretions. - Encouraged continued use of DuoNeb solutions twice daily. Patient Education: - Advised the patient to monitor for symptoms of lightheadedness or dizziness with increased carvedilol. - Recommended keeping a snack by the bedside to manage potential nighttime hypoglycemia. - Discussed the importance of using a nebulizer and completing the azithromycin course. Follow-Up: - Arranged for home health services to assist the patient. - Advised the patient to contact the office if any new symptoms arise or if there are concerns with medications. Disposition: - Scheduled follow-up visit to monitor symptoms and treatment efficacy. - Encouraged the patient to contact the clinic with any concerns related to heart rate or other health issues. * ROS: G eneral/Constitutional: Change in appetite d enies. C hills d enies. A dmits F atigue. F ever d enies. O phthalmologic: Blurred vision d enies. D ischarge d enies. E ye Pain d enies. E NT: Decreased hearing d enies. S ore throat d enies.?Swollen glands d enies. E ndocrine: Cold intolerance d enies. E xcessive thirst d enies. H eat intolerance d enies. W eight loss d enies. R espiratory: Admits Lenka ornelas. A dmits P neumonia. S hortness of breath at rest d enies. S hortness of breath with exertion d enies. D enies S putum production. W heezing d enies. C ardiovascular: Chest pain at rest d enies. C hest pain with exertion?denies. I rregular heartbeat d enies. S hortness of breath d enies. ? G astrointestinal: Abdominal pain d enies. D iarrhea d enies. N ausea d enies. V omiting d enies . G enitourinary: Blood in urine d enies. D ifficulty urinating d enies. F requent urination d enies. M usculoskeletal: Painful joints d enies. W eakness d enies. ? S kin: Dry skin d enies. I tching d enies. R tamir d enies. N eurologic: Dizziness d enies. F ainting d enies. H eadache?denies. * Medical History: * Surgical History: N o Surgeries As Of Todays Date * Hospitalization/Major Diagno stic Procedure: P neumonia 06/2017 * Family History: F amilyHx: diagnosed with Other specified conditions influencing health status. * 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: T obacco Use: T obacco Control (Standard) T obacco use: F ormer smoker F ALL ASSESSMENT: H PT HAD A FALL WITHIN LAST 3 MONTHS?: NO, . COLON CANCER SCREENIN. MAMMOGRAM: 2023. DIABETIC EYE EXAM: 2024. ARE WE PCP OR NEPH: PCP. Hospital visit since last office visit?: yes, where:[facility]. D rugs/Alcohol: D o you smoke marijuana?: Denies. Do you drink alcohol?: No. * Medications: T akingCompazine Ondansetron 8 MG Tablet Disintegrating 1 tablet on the tongue and allow to dissolve as needed Orally every 8 hours Nystatin 562157 UNIT/ML Suspension swish and swallow 5mL Mouth/Throat [...] tablet Orally Once a day Dexcom G6 Hitch Technician - Device as directed Accu-Chek Softclix Lancets [...] tablet Orally once a day Dexcom G7 Hitch Technician - Device as directed Dexcom G7 Sensor [...] Prep Pads 70 % Pad as directed Medication List reviewed and reconciled with the patientTaking Compazine Taking Ondansetron 8 MG Tablet Disintegrating 1 tablet on the tongue and allow to dissolve as needed Orally every 8 hours Taking Nystatin 683089 UNIT/ML Suspension swish and swallow 5mL Mouth/Throat [...] Orally Once a day Taking Dexcom G6 Hitch Technician - Device as directed Taking Accu-Chek Softclix [...] Orally once a day Taking Dexcom G7 Hitch Technician - Device as directed Taking Dexcom G7 [...] Prep Pads 70 % Pad as directed Medication List reviewed and reconciled with the patient * Allergies: K eflexlisinoprilmeloxicamno[Allergies Verified] Objective: * Vitals: T emp:98.2F, HR:120/min, BP:136/84mm Hg, Ht: 67 in, RR:20/min, Oxygen sat %:95%, Peak Flow: 2 LITERS. * Examination: G eneral Examination: GENERAL APPEARANCE: w ell developed, well nourished, in no acute distress, fatigued, using walker. HEAD: n ormocephalic, atraumatic. EYES: p upils equal, round, reactive to light and accommodation, sclera non-icteric. EARS: n ormal. ORAL CAVITY: m ucosa moist. THROAT: c lear. NECK/THYROID: n pablo supple, full range of motion, no cervical lymphadenopathy. SKIN: w arm and dry, no suspicious lesions. HEART: r egular rate and rhythm, S1, S2 normal, no murmurs.? LUNGS: c lear to auscultation bilaterally rales in right lower lobe. ABDOMEN: s oft, nontender, nondistended, bowel sounds present, normal. EXTREMITIES: n o clubbing, cyanosis, or edema. NEUROLOGIC: n onfocal, motor strength normal upper and lower extremities, sensory exam intact. Assessment: * Assessment: 1. P neumonia, unspecified organism - J18.9 (Primary) 2 . M alignant neoplasm of unspecified part of unspecified bronchus or lung - C34.90 3 . E ssential (primary) hypertension - I10 4 . A cute cough - R05.1 5 . W eakness generalized - R53.1 6 . C OPD without exacerbation - J44.9 ?7. A nxiety - F41.9 Plan: * Treatment: 2. M alignant neoplasm of unspecified part of unspecified bronchus or lung Notes: follows with pulm and oncology pt would benefit from home health due to starting treatment 3. E ssential (primary) hypertension Refill Carvedilol Tablet, 25 MG, 1 tablet, Orally, Twice a day, 30 days, 60 Tablet, Refills 3. Notes: increasing carvediolol dose today 4. C OPD without exacerbation Notes: stable. has stopped smoking 5. A nxiety Notes: will increase hydroxyzine to take as needed during the day * Procedure Codes: * Follow Up: 4 Weeks * * Sign off status: Completed true * Provider: Carolyn Coleman Date: 10/21/2024 Generated for Chato gonzalez/Nica/Edwardo on: 11/15/2024 02:00 PM EDT History and Physical Notes * HPI (History of Present Illness) Category Sub-Category Detail Notes Category Not es Constitutional 63 y/o female with PMHX significant for htn, DM, copd, anxiety, and hld presents in for f/u. New dx of small cell lung cancer with immunocompromised state. has quit smoking. She states all her specialists now are at . pt is now starting chemo and is about to start radiation. Pt here for hospital follow up. She was admitted form 10/12-10/18. The patient presented following a recent hospitalization for pneumonia and sepsis, seeking management for persistent symptoms and heart rate concerns. She finished a round of abx in the hospital. SUBJECTIVE: The patient reported feeling better since the hospitalization but noted that food still did not taste good, experiencing shortness of breath and a racing heart, which contributed to fatigue. The patient was currently on carvedilol, which was not effectively controlling the heart rate. Additionally, the patient expressed concern about upcoming radiation and chemotherapy treatments, which had already resulted in hair loss. The patient reported taking a long time to dress and feeling exhausted afterward. The patient also mentioned a low blood sugar event with a reading of 47. Pertinent negatives include the patient reports not having any adverse reactions to the prescribed medications. ASSESSMENT: 1. Pneumonia: The patient experienced pneumonia, which was treated in the hospital. Residual symptoms include shortness of breath and altered taste. The patient's compromised immune system may prolong recovery. Lung sounds indicated some remaining congestion, suggesting incomplete resolution of the infection. 2. Tachycardia: The patient experienced a racing heart, likely exacerbated by the current carvedilol regimen's inadequacy. The patient previously used metoprolol successfully in the hospital, indicating a need to adjust the current beta-hunter dose for adequate control. 3. Chemotherapy-induced alopecia: The patient reported hair loss following chemotherapy, suggesting a typical side effect of treatment. The patient was undergoing chemotherapy and radiation therapy for an unspecified condition, with some emotional distress noted regarding these treatments. PLAN: Treatment: - Increased carvedilol to 25 mg twice daily to manage heart rate. - Prescribed azithromycin for five days to address residual pneumonia symptoms. - Suggested mucinex for five days to thin lung secretions. - Encouraged continued use of DuoNeb solutions twice daily. Patient Education: - Advised the patient to monitor for symptoms of lightheadedness or dizziness with increased carvedilol. - Recommended keeping a snack by the bedside to manage potential nighttime hypoglycemia. - Discussed the importance of using a nebulizer and completing the azithromycin course. Follow-Up: - Arranged for home health services to assist the patient. - Advised the patient to contact the office if any new symptoms arise or if there are concerns with medications. Disposition: - Scheduled follow-up visit to monitor symptoms and treatment efficacy. - Encouraged the patient to contact the clinic with any concerns related to heart rate or other health issues. Examination Category Sub-Category Detail Notes Category Not es General Examination GENERAL APPEARANCE: well dev eloped, well nourished, in no acute distress, fatigued, using walker HEAD: normocephalic, atrau matic EYES: pupils equal, round, reactive to light and accommodation, sclera non-icteric EARS: normal THROAT: clear NECK/THYROID: neck supple, full ra nge of motion, no cervical lymphadenopathy HEART: regular rate and rhy thm, S1, S2 normal, no murmurs LUNGS: clear to auscultatio n bilaterally rales in right lower lobe ABDOMEN: soft, nontender, non distended, bowel sounds present, normal NEUROLOGIC: nonfocal, motor stre ngth normal upper and lower extremities, sensory exam intact SKIN: warm and dry, no june picious lesions EXTREMITIES: no clubbing, cyanosi s, or edema ORAL CAVITY: mucosa moist Consultation Request Notes Referral Date Referring Provider Referred Provider Not es 10/21/2024 Yamilet Coleman [facility] 2, [facility], PT, OT
--- OUTSIDE RECORDS SUMMARY | 2024-10-24 04:00 | XMS_ITS ---
Author Organization [facility] [place] [address] Care Team Providers Care Test Inspection Engineer Name Role Phone MUNA CARRERA Unavailable [phone] Yissel PALMER, Muna Unavailable Unavailable Yamilet Coleman Unavailable [phone] REASON FOR VISIT [facility] HFU DC 6.3.25 AND 1 month f/u/NEEDS A1C/DM EYE EXAM/MCUC/CMP Encounters Encounter Location Date Provider Diagnosis [facility] [place] [address] [place] [address] 10/24/2024 Yamilet Coleman Plan Of Treatment Next Appt Details Provider Name:Yamilet heath, 11/22/2024 10:15:00 AM, [address], [place], [address], Provider Name:Yamilet heath, 02/27/2025 10:30:00 AM, [address], [place], [address], Progress Notes * Teresa URBINADOB: [birth year] (63 yo F)Acc No.[id number]:10/24/2024 Progress Note Patient: Isis Teresa REY Provider: Carolyn Coleman :1960 A ge:63 Y S ex:Female Date:10/24/2024 Address:[address] [place] [address] [place] [id number] Subjective: * Chief Complaints: * 1 . [facility] HFU DC 6.3.25 AND 1 month f/u/NEEDS A1C/DM EYE EXAM/MCUC/CMP. * Medical History: Objective: * Vitals: Assessment: Plan: * Treatment: * * Electronic signature of CAPO Ellis on 11/15/2024 at 02:00 PM EDT Sign off status: Pending * Provider: Carolyn Coleman Date: 0 10/24/2024 Generated for Chato gonzalez/Nica/eTalexussmjon on: 11/15/2024 02:00 PM EDT
--- OUTSIDE RECORDS SUMMARY | 2024-10-24 08:59 | XMS_ITS | Encounter Summary ---
Author Organization [facility] Address [address] [place] [address] Care Team Providers Care Cook 3 Pastry Name Role Phone Laurie Gutierrez MD Primary Care Provider [phone] Joshua Martínez MD Unavailable Jasmina Smith LPN Unavailable Unavailable Encounter Details Date Type Department Care Team (Latest Contact Info) Description 10/24/2024 8:59 AM EDT - 10/24/2024 11:46 AM EDT Hospital Encounter [facility] Radiation [id number] [place] [address] Discharge Disposition: Still a Patient 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 [...] place to sleep or slept in a alf (including now)? No 11/20/2023 PHQ-9 Answer Date [...] any time in the past 12 m [facility], were you homeless or living in a alf (including now)? No 10/14/2024 CAGE ASSESSMENT Answer [...] drink first t laurie in the morning (EYE-POULTRY RAISER) to steady your nerves or to get rid of a hangover? 0 11/19/2023 CAGE Questionnaire Score 0 024 Utilities Answer Date Recorded In the past 12 months has e [employer], [employer], oil, or water [employer] threatened to shut off services in your [...] misc 09/19/2024 5 Blood Glucose Monitoring Suppl ([employer] Verio Flex System) w/Device kit 09/19/2024 5 carvedilol (Coreg) 12.5 MG tablet Take 1 tablet by mouth 2 times a day with meals. 5 ciclopirox (Penlac) 8 % solution Apply over affected nail fold daily. 5 Continuous Glucose Translator/Interpreter ([employer]com G7 Translator/Interpreter) device USE TO MEASURE BLOOD SUGAR DIRECTED [...] adjusted per the MD at [facility] 10 mL 12 10/18/2024 Lantus SoloStar 100 UNIT/ML injection pen Inject under the skin 2 times a day. 10/18/2024 lidocaine (Xylocaine) 2 % solution Take 5 mL by mouth as needed for mild pain. 10/18/2024 nystatin (Mycostatin) [id number] UNIT/ML suspension Swish and swallow 5 mL [...] Pav CC Head, Neck & Respiratory [address] [facility], 2nd [place] [address] 11/29/2024 11:00 AM EDT Office Visit [facility] Head, Neck & Respiratory [address] [facility], [address]nd [place] [address] Satnam Colvin MD 800 [facility] [address] [facility] [address] [place] [address] 11/29/2024 12:30 PM EDT Appointment [facility] 1 [address] [place] [address] 11/30/2024 1:30 PM EDT Appointment [facility] 1 [address] [place] [address] 12/01/2024 2:00 PM EDT Appointment [facility] 1 [address] [place] [address] 12/06/2024 11:40 AM EDT Appointment [facility] Radiation [id number] [place] [address] Haven Blum, DRAFTING TECHNICIAN [address] [facility] [address] [place] [address] 01/19/2025 9:30 AM EDT Appointment P[facility] S Radiology [address], 1st [place] [address] 01/19/2025 10:45 AM EDT Office Visit [place] [facility] [address], [address]st [place] [address] Abhilash Bangura MD [address] [place] [address] 03/08/2025 1:00 PM EDT Office Visit [facility] [place] Wenceslao [address] [place] [address] Teresita Oconnell MD [address] [place] [address] documented as of this encounter [...] documented as of this encounter Care Teams Cook 3 Pastry Relationship Specialty Start Date End Date Laurie Gutierrez MD [address] [place] [address] PCP - General 12/09/23 Joshua Martínez MD 800 [facility] [address] [place] [address] Consulting Physician Radiation Oncology 09/19/24 Jasmina Smith LPN VALUE-BASED [place] [address] [facility] Nurse 10/19/24 11/01/24 documented as of this encounter
--- OUTSIDE RECORDS SUMMARY | 2024-10-24 11:47 | XMS_ITS | Encounter Summary ---
Author Organization Healthcare Address [address] [place] [address] Care Team Providers Care Movie Shot Camera Operator Name Role Phone Laurie Gutierrez MD Primary Care Provider [phone] Joshua Martínez MD Unavailable Jasmina Smith GRAB JACK MAN Unavailable Unavailable Encounter Details Date Type Department Care Team (Latest Contact Info) Description 10/24/2024 11:47 AM EDT Hospital Encounter [facility] Radiation [id number] [place] [address] Joshua Martínez MD [address] [place] [address] Discharge Disposition: Still a Patient 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 [...] place to sleep or slept in a snf (including now)? No 11/20/2023 PHQ-9 Answer Date [...] any time in the past 12 m [facility], were you homeless or living in a snf (including now)? No 10/14/2024 CAGE ASSESSMENT Answer [...] drink first t laurie in the morning (EYE-CHIEF NURSE ANESTHETIST) to steady your nerves or to get rid of a hangover? 0 11/19/2023 CAGE Questionnaire Score 0 024 Utilities Answer Date Recorded In the past 12 months has th e [employer], gas, oil, or water [employer] threatened to shut off services in your [...] MINI PEN NEEDLES 31G X 5 MM [facility] 09/19/2024 5 Blood Glucose Monitoring Suppl (See[employer] Verio Flex System) w/Device kit 09/19/2024 5 carvedilol (Coreg) 12.5 MG tablet Take 1 tablet by mouth 2 times a day with meals. 5 ciclopirox (Penlac) 8 % solution Apply over affected nail fold daily. 5 Continuous Glucose Finishing Supervisor Plastic Sheets (Dexcom G7 Finishing Supervisor Plastic Sheets) device USE TO MEASURE BLOOD SUGAR DIRECTED 09/29/2024 5 Continuous Glucose Sensor (Dexcom G6 Sensor) [facility] USE DIRECTED TO MEASURE BLOOD SUGAR. REPLACE [...] Can be adjusted per the MD at [facility] 10 mL 12 10/18/2024 5 Lantus SoloStar 100 UNIT/ML injection pen Inject under the skin 2 times a day. 10/18/2024 5 lidocaine (Xylocaine) 2 % solution Take 5 mL by mouth as needed for mild pain. 10/18/2024 5 nystatin (Mycostatin) 888242 UNIT/ML suspension Swish and swallow 5 mL [...] & Respiratory [address] [facility], 2nd [place] [address] 11/29/2024 11:00 AM EDT Office Visit Pav CC Head, Neck & Respiratory [address] [facility], 2nd [place] [address] Satnam Colvin MD [address] [facility] [address] [facility] [address] [place] [address] 11/29/2024 12:30 PM EDT Appointment [facility] 1 [address] [place] [address] 11/30/2024 1:30 PM EDT Appointment [facility] 1 [address] [place] [address] 12/01/2024 2:00 PM EDT Appointment [facility] 1 [address] [place] [address] 12/06/2024 11:40 AM EDT Appointment [facility] Radiation [id number] [place] [address] Haven Blum, ROAD HOGGER OPERATOR [address] [facility] [address] [place] [address] 01/19/2025 9:30 AM EDT Appointment P[facility] S Radiology [address], 1st [place] [address] 01/19/2025 10:45 AM EDT Office Visit [place] [facility] [address], [address] [place] [address] Abhilash Bangura MD [address] [place] [address] 03/08/2025 1:00 PM EDT Office Visit [facility] [place] Wenceslao [address] [place] [address] Teresita Oconnell MD [address] [place] [address] documented as of this encounter Visit Diagnoses [...] documented as of this encounter Care Teams Movie Shot Camera Operator Relationship Specialty Start Date End Date Laurie Gutierrez MD [address] [place] [address] PCP - General 12/09/23 Joshua Martínez MD [address] [phone] Consulting Physician Radiation Oncology 09/19/24 Jasmina Smith LPN VALUE-BASED [place] [address] TCM Nurse 10/19/24 11/01/24 documented as of this encounter
--- OUTSIDE RECORDS SUMMARY | 2024-10-24 11:48 | XMS_ITS | Encounter Summary ---
Author Organization [facility] Address [address] [place] [address] Care Team Providers Care Video Surveillance Technician Name Role Phone Laurie Gutierrez MD Primary Care Provider [phone] Joshua Martínez MD Unavailable Jasmina Smith LPN Unavailable Unavailable Encounter Details Date Type Department Care Team (Latest Contact Info) Description 10/24/2024 11:48 AM EDT - 10/24/2024 11:59 PM EDT Hospital Encounter [facility] Radiation [id number] [place] [address] Discharge Disposition: Still a Patient 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 [...] any time in the past 12 m [facility], were you homeless or living in [...] drink first t laurie in the morning (EYE-ROOM SERVICE ASSOCIATE) to steady your nerves or to get rid of a hangover? 0 11/19/2023 CAGE Questionnaire Score 0 024 Utilities Answer Date Recorded In the past 12 months has e [employer], [employer], oil, or water [employer] threatened to shut off services in your [...] misc 09/19/2024 5 Blood Glucose Monitoring Suppl (Patient [employer] Verio Flex System) w/Device kit 09/19/2024 5 carvedilol (Coreg) 12.5 MG tablet Take 1 tablet by mouth 2 times a day with meals. 5 ciclopirox (Penlac) 8 % solution Apply over affected nail fold daily. 5 Continuous Glucose Fuel Technician ([employer]Finance[employer] G7 Fuel Technician) device USE TO MEASURE BLOOD SUGAR [...] MD at [facility] 10 mL 12 10/18/2024 Lantus SoloStar 100 UNIT/ML injection pen Inject under the skin 2 times a day. 10/18/2024 lidocaine (Xylocaine) 2 % solution Take 5 mL by mouth as needed for mild pain. 10/18/2024 nystatin (Mycostatin) 239005 UNIT/ML suspension Swish and swallow 5 mL [...] Upcoming Encounters Date Type Department Care Team ([facility] st Contact Info) Description 11/29/2024 10:30 AM EDT Clinical Support Pav CC Head, Neck & Respiratory 800 [facility], [address]nd [place] [address] 11/29/2024 11:00 AM EDT Office Visit Pav CC Head, Neck & Respiratory [address] [facility], [address]nd [place] [address] Satnam Colvin MD 800 [facility] [address] [facility] [address] [place] [address] 11/29/2024 12:30 PM EDT Appointment [facility] 1 [address] [place] [address] 11/30/2024 1:30 PM EDT Appointment [facility] 1 [address] [place] [address] 12/01/2024 2:00 PM EDT Appointment [facility] 1 [address] [place] [address] 12/06/2024 11:40 AM EDT Appointment [facility] Radiation [address] [id number] [place] [address] Haven Blum, CYLINDER BLOCK HOLE RELINER [address] [facility] [address] [place] [address] 01/19/2025 9:30 AM EDT Appointment P[facility] S Radiology [address], [address] [place] [address] 01/19/2025 10:45 AM EDT Office Visit [place] [facility] [address], [address] [place] [address] Abhilash Bangura MD [address] [place] [address] 03/08/2025 1:00 PM EDT Office Visit [facility] [place] [address] [place] [address] Teresita Oconnell MD [address] [place] [address] documented as of this encounter [...] documented as of this encounter Care Teams Video Surveillance Technician Relationship Specialty Start Date End Date Laurie Gutierrez MD [address] [place] [address] PCP - General 12/09/23 Joshua Martínez MD 800 [facility] [address] [place] [address] Consulting Physician Radiation Oncology 09/19/24 Jasmina Smith LPN VALUE-BASED [place] [address] [facility] Nurse 10/19/24 11/01/24 documented as of this encounter
--- OUTSIDE RECORDS SUMMARY | 2024-10-25 08:40 | XMS_ITS | Encounter Summary ---
Author Organization [facility] Address [address] [place] [address] Care Team Providers Care Senior Physician Name Role Phone Laurie Gutierrez MD Primary Care Provider Joshua Martínez MD Unavailable Jasmina Smith LPN Unavailable Unavailable Reason for Visit * Reason Comments Atrial Fibrillation Encounter Details Date Type Department Care Team (Late st Contact Info) Description 10/25/2024 8:40 AM EDT Office Visit [facility] [place] [facility] [address] [place] [address] Vonnie Barksdale PA [address] [place] [address] Atrial flutter with rapid ventricular response (CMS/HCC) (Primary Dx); High risk medication use; Anesthesia of skin 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 Tobacco Use Types Packs/Day Years Used Date Smoking Tobacco: Former Cigarettes 1.5 48.4 1 976 - 10/17/2023 Smokeless Tobacco: Never Alcohol Use Standard Drinks/Week Comments No 0 (1 standard drink = 0.6 oz pur e alcohol) PHQ-2 Answer Date Recorded Patient Health Questionnaire-2 Score 0 08/31/2024 Housing Stability Vital Sign [...] any time in the past 12 m [facility], were you homeless or living in a care home (including now)? No 10/14/2024 Humiliation, Afraid, Rape, and Kick questionnair e Answer Date Recorded Within the last year, have y ou been afraid of your partner or ex-partner? No 10/26/2024 Within the last year, have y ou been humiliated or emotionally abused in other ways by your partner or ex-partner? No Within the last year, have y ou been kicked, hit, slapped, or otherwise physically hurt by your partner or ex-partner? No 10/26/2024 Within the last year, have y ou been raped or forced to have any kind of sexual activity by your partner or ex-partner? No 10/26/2024 Overall Financial Resource Strain (CARDIA) Answe r Date Recorded How hard is it for you to pa y for the very basics like food, housing, medical care, and heating? Somewhat hard 10/26/2024 Hunger Vital Sign Answer Date Recorded Within the past 12 months, y ou worried that your food would run out before you got the money to buy more. Sometimes true Within the past 12 months, t he food you bought just didn't last and you didn't have money to get more. Sometimes true 03/2025 PRAPARE - Transportation Answer Date Re corded In the past 12 months, has l ack of transportation kept you from medical appointments or from getting medications? No 10/16 In the past 12 months, has l ack of transportation kept you from meetings, work, or from getting things needed for daily living? No 10/26/2024 Housing Stability Vital Sign Answer Gregor e Recorded In the last 12 months, was t here a time when you were not able to pay the mortgage or rent on time? No 10/26/2024 In the past 12 months, how m any times have you moved where you were living? 0 10/26/2024 At any time in the past 12 m [facility], were you homeless or living in a care home (including now)? No 10/26/2024 CAGE ASSESSMENT Answer Date Recorded Cage unable [...] drink first t laurie in the morning ([employer]) to steady your nerves or to get rid of a hangover? 0 11/19/2023 CAGE Questionnaire Score 0 024 Utilities Answer Date Recorded In the past 12 months has e electric, gas, oil, or water [employer] threatened to shut off services in your home? No 10/26/2024 Comments No Sex and Gender Information Value Date Recorded Sex Assigned at Not on file Legal Sex Female 8:32 PM EDT Gender Identity Not on file Sexual Orientation Not on file documented as of this encounter Last Filed Vital Signs Vital Sign Reading Time Taken Comments Blood Pressure 98/63 10/25/2024 9:03 AM EDT Pulse 93 10/25/2024 9:03 AM EDT Temperature - - Respiratory Rate - - Oxygen Saturation 82% 10/25/2024 9:03 AM EDT Inhaled Oxygen Concentration - - Weight 119 kg (262 lb) 10/25/2024 9:03 AM EDT Height 170.2 cm (5' 7 ) 10/25/2024 9:03 AM EDT Body Mass Index 41.04 10/25/2024 9:03 AM EDT documented in this encounter Miscellaneous Notes * Progress Notes - Vonnie Barksdale PA - 10/25/2024 8:40 AM EDT Images from the original note were not included. Electrophysiology Follow Up Note Date of Visit 10/25/24 Patient Teresa Rivera [address] [place] [address] PCP Laurie Gutierrez MD Chief Complaint No chief complaint on file. SUBJECTIVE History of Present Illness Teresa Rivera is a 63 y.o. female who presents today in the electrophysiology clinic for follow up; pt called and reported experiencing extreme elevated heart rate to where she cannot walk and fatigue. PMH of HTN, DM II , COPD, small cell lung canter ( stage III ), typical atrial flutter ( s/p CTI flutter ablation ). In summary, patient was managed by Dr. Rodriguez for typical atrial flutter. She underwent successful ablation without recurrence. Amiodarone was later stopped during follow up, but then had documented atrial fibrillation. For this reason, she continued with NOAC. Relevant Data: I personally reviewed labs, images, relevant previous workup, and relevant previous clinic notes. Data is summarized below : - ECG : * NSR - TTE : none - ISHA : none. - Stress test : - CMR : - Previous EP procedures : * CTI flutter ablation in 11/[address] Rodriguez At her last visit in August 2024 pt was directed to the ED due to profound bilateral lower ext weakness without upper ext weaknesses or facial droop; no incontinence. Sx were worrisome for ICH or brain mets given her hx of lung CA. She was found to have hemorrhagic brain metastases with vasogenic edema and a subdural hematoma. She underwent craniotomy on 09/05 and tolerated the procedure well. Pathology was consistent with metastatic SCLC. She was also treated with dexamethasone and will continuea taper through 09/17 where she will be on 2 mg BID everyday thereafter. She will also continue Keppra 500 mg BID. PT was admitted at [facility] for Sepsis with febrile severe neutropenia due to CAPfrom 10/12/24-10/18/24. NSGY was consulted and recommend LP, IR guided LP 10/14/24, negative for meningitis. PT was in Afib with RVR on 10/12, 10/14, and 10/15 with rates 151, 140, 146 bpm respectively. RVR was resolved at timeof discharge. Home Coreg was conitnued at time of discharge. Problem List[1] Current Medications Current Medications[2] Allergies Allergies[3] The following portions of the chart were reviewed this encounter and updated as appropriate: Review of Systems 14 Point ROS reviewed and is otherwise negative except as per HPI. OBJECTIVE Vitals There were no vitals taken for this visit. Physical Exam Physical Exam Vitals and nursing note reviewed. Constitutional: Appearance: She is obese. Comments: In wheelchair HENT: Head: Normocephalic and atraumatic. Mouth/Throat: Mouth: Mucous membranes are moist. Eyes: Extraocular Movements: Extraocular movements intact. Pupils: Pupils are equal, round, and reactive to light. Cardiovascular: Rate and Rhythm: Normal rate and regular rhythm. Pulmonary: Comments: NC in place. Diffuse ex wheezes and rhonchi. Tactile fremitus to BL posterior lung english. Abdominal: General: There is no distension. Palpations: Abdomen is soft. Tenderness: There is no abdominal tenderness. Musculoskeletal: General: No swelling or deformity. Cervical back: Normal range of motion and neck supple. Skin: General: Skin is warm and dry. Comments: Incision to the crown of the head from craniotomy (August 2024) well approximated. Neurological: General: No focal deficit present. Mental Status: She is alert and oriented to person, place, and time. Psychiatric: Mood and Affect: Mood normal. Behavior: Behavior normal. Diagnostics No echocardiogram results found for the past 12 months Lab Review Lab Results Component Value Date/Time WBC 4.12 10/18/2024 0346 RBC 3.21 (L) 10/18/2024 0346 HGB 9.6 (L) 10/18/2024 0346 HCT 29.9 (L) 10/18/2024 0346 Lab Results Component Value Date/Time BUN 16 10/16/2024 0549 NA 141 10/16/2024 0549 K 4.2 10/16/2024 0549 CL 109 (H) 10/16/2024 0549 Lab Results Component Value Date/Time AST 15 10/16/2024 0549 ALT 29 10/16/2024 0549 ALKPHOS 77 10/16/2024 0549 Lab Results Component Value Date/Time CHOL 128 09/02/2024 0325 HDL 46 (L) 09/02/2024 0325 Lab Results Component Value Date/Time HGBA1C 6.3 (H) 09/02/2024 0325 Lab Results Component Value Date/Time TSH 0.90 10/04/2024 0943 FREET4 1.3 11/19/2023 0957 ASSESSMENT AND PLAN Visit Diagnoses and Orders No diagnosis found. Discussion Summary Teresa Rivera is a 63 y.o. female with PMH of HTN, DM II , COPD, small cell lung cancer (stage IV brain mets), typical atrial flutter ( s/p CTI flutter ablation ), presented to the clinic today due to sensation of tachy-palpations and generalized weakness. PT found to have hemorrhagic brain metastases with vasogenic edema and a subdural hematoma. She underwent craniotomy on 09/05/24 PT was admitted at [facility] for Sepsis with febrile severe neutropenia due to CAPfrom 10/12/24-10/18/24; treated with ABX. Typical atrial flutter with paroxysmal atrial fibrillation: - S/P Cti flutter ablation without clinical recurrence. -developed atrial fibrillation during follow up. - Elevated CV score, on NOAC. (Xarelto 20 mg daily) - PT was in Afib with RVR on 10/12, 10/14, and 10/15 with rates 151, 140, 146 bpm respectively. RVR was resolved at time of discharge. Home Coreg was conitnued at time of discharge. Plan Today, 10/25/2024, pt markedly fatigued and weak; unable to ambulate across the room. She has had sats in the 80s on room air. She has had to increase to 4L NC to maintain stats >90%. She continuesto have cough and wheezing. EKG showed sinus tach with a rate of 96. Diffuse expiratory rales in all english; cough with deep inspiration. Presentation worrisome for worsening PNA. She is alert, difficulty recounting hx details due to illness. Sister accompanies her. Spoke with [facility] and ER. PT will be sent to ED for further evaluation. From an EP standpoint, will change Coreg 25 mg BID to Metoprolol 50 mg XL for better rate control given her tachycardia at home. RV after discharge A total time of 35 minutes was spent by addressing the current illness, reviewing records (prior imaging, lab work, etc), and formulating a plan. The patient is agreeable to the plan and all pertinent questions were answered. Patient was discussed with Dr. Kowalski who is in agreement with the above plan of care. Vonnie Barksdale PA-C Electrophysiology [1] Patient Active Problem List Diagnosis Right leg weakness Brain mass Obesity (BMI 35.0-39.9 without comorbidity) Morbid obesity with BMI of 40.0-44.9, adult (CMS/HCC) 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CMS/HCC) [2] Current Outpatient Medications: Accu-Chek Softclix Lancets lancets, USE TO TEST BLOOD SUGAR 3 TIMES EACH DAY, Disp: , Rfl: Alcohol Swabs (Easy Touch Alcohol Prep Medium) 70 % pads, , Disp: , Rfl: atorvastatin (Lipitor) 40 MG tablet, Take 1 tablet by mouth daily., Disp: , Rfl: B-D UF III MINI PEN NEEDLES 31G X 5 MM [facility], , Disp: , Rfl: benzonatate (Tessalon) 100 MG capsule, Take 1 capsule by mouth 3 times a day as needed for cough. Do not crush or chew., Disp: 20 capsule, Rfl: 0 Blood Glucose Monitoring Suppl (Bevyuch Verio Flex System) w/Device kit, , Disp: , Rfl: Sukrgqc-Kbvthcoatkb-Yndupzjimg (Breztri Aerosphere) 160-9-4.8 MCG/ACT aerosol, Inhale 2 puffs 2 (two) times a day., Disp: , Rfl: Calcium Carb-Cholecalciferol 600-10 MG-MCG tablet, Take 600 mg by mouth daily., Disp: , Rfl: calcium carbonate (Tums) 500 MG chewable tablet, Chew 1 tablet 4 times a day as needed for indigestion or heartburn., Disp: , Rfl: carvedilol (Coreg) 12.5 MG tablet, Take 1 tablet by mouth 2 times a day with meals., Disp: , Rfl: cetirizine (ZyrTEC) 10 MG tablet, Take 1 tablet by mouth daily., Disp: , Rfl: ciclopirox (Penlac) 8 % solution, Apply over affected nail fold daily., Disp: , Rfl: Continuous Glucose Sensor (Dexcom G6 Sensor) [facility], USE DIRECTED TO MEASURE BLOOD SUGAR. REPLACE SENSOR EVERY 10 DAYS, Disp: , Rfl: dexamethasone (Decadron) 2 MG tablet, Take 1 tablet by mouth every 12 hours., Disp: 10 tablet, Rfl:0 empagliflozin (Jardiance) 25 MG, Take 1 tablet by mouth daily., Disp: , Rfl: ferrous sulfate 325 (65 Fe) MG tablet, Take 1 tablet by mouth daily with breakfast., Disp: , Rfl: FLUoxetine (PROzac) 40 MG capsule, Take 1 capsule by mouth daily., Disp: , Rfl: FREESTYLE LITE test strip, USE TO TEST BLOOD SUGAR 3 TIMES EACH DAY AND NEEDED, Disp: , Rfl: gabapentin (Neurontin) 600 MG tablet, Take 1 tablet by mouth 4 times a day., Disp: , Rfl: hydrOXYzine HCl (Atarax) 25 MG tablet, Take 1 tablet by mouth 3 times a day as needed., Disp: , Rfl: insulin glargine-yfgn 100 UNIT/ML injection vial, Inject 20 Units under the skin nightly., Disp: 10mL, Rfl: 3 Insulin Lispro (Admelog, HumaLOG) 100 UNIT/ML injection vial, Inject 15 Units under the skin 3 times a day with meals. Can be adjusted per the MD at [facility], Disp: 10 mL, Rfl: 12 magnesium oxide (Mag-Ox) 400 MG tablet, Take 1 tablet by mouth 2 times a day. Hold for diarrhea, Disp: 60 tablet, Rfl: 1 melatonin tablet, Take 2 tablets by mouth nightly., Disp: , Rfl: metFORMIN (Glucophage) 1000 MG tablet, Take 1 tablet by mouth 2 times a day with meals., Disp: , Rfl: montelukast (Singulair) 10 MG tablet, Take 1 tablet by mouth nightly., Disp: , Rfl: nystatin (Mycostatin) 668513 UNIT/ML suspension, Swish and swallow 5 mL 4 times a day for 39 doses., Disp: 195 mL, Rfl: 0 ondansetron (Zofran) 8 MG tablet, Take 1 tablet by mouth every 8 hours as needed for nausea or vomiting., Disp: , Rfl: ondansetron (Zofran) 8 MG tablet, Take 1 tablet by mouth 2 times a day. Take on Day 4 of cycle and then take PRN, Disp: 30 tablet, Rfl: 5 pantoprazole (Protonix) 40 MG EC tablet, Take 1 tablet by mouth daily. Do not crush, chew, or split., Disp: , Rfl: prochlorperazine (Compazine) 10 MG tablet, Take 1 tablet by mouth every 6 hours as needed for nausea or vomiting., Disp: 30 tablet, Rfl: 3 rOPINIRole (Requip) 1 MG tablet, TAKE 1 TABLET 2 TIMES EACH DAY, Disp: , Rfl: SITagliptin (Januvia) 50 MG [...] by mouth every evening., Disp: , Rfl: [3] Allergies Allergen Reactions Cephalexin Other - please document in the comment field Patient states makes her feel tired Lisinopril Cough and Other - please document in the comment field Meloxicam Cough and Other - please document in the comment field documented in this encounter Plan of Treatment Upcoming Encounters Date Type Department Care Team ([facility] st Contact Info) Description 11/29/2024 10:30 AM EDT Clinical Support [facility] [address] [facility] [address] [place] [address] 11/29/2024 11:00 AM EDT Office Visit [facility] [address] [facility] [place] [address] Satnam Colvin MD [address] [facility] [address] [facility] [address] [place] [address] 11/29/2024 12:30 PM EDT Appointment [facility] [address] [place] [address] 11/30/2024 1:30 PM EDT Appointment [facility] [address] [place] [address] 12/01/2024 2:00 PM EDT Appointment [facility] [address] [place] [address] 12/06/2024 11:40 AM EDT Appointment [facility] Rad[facility] [address] [place] [address] Haven Blum, RENAL SOCIAL WORKER [address] [place] [address] 01/19/2025 9:30 AM EDT Appointment [facility]iology [address] [place] [address] 01/19/2025 10:45 AM EDT Office Visit [facility] [address] [place] [address] Abhilash Bangura MD [address] [place] [address] 03/08/2025 1:00 PM EDT Office Visit [facility] [place] [facility] [address] [place] [address] Teresita Oconnell MD [address] [place] [address] documented as of this encounter Procedures Procedure Name Priority Date/Time Associated Diagnosis Comments ECG ADULT Routine 10/25/2024 9:13 AM EDT Atrial flutter with rapid ventricular response (CMS/HCC) documented in this encounter Results * ECG Adult (Now - Performed in your clinic) (10/25/2024 9:13 AM EDT) EKG DIAGNOSIS CLASS Normal MUSE ECG Ventricular Rate 96 BPM MUSE ECG Atrial Rate 96 BPM MUSE ECG MD Interval 132 ms MUSE ECG QRSD Interval 86 ms MUSE ECG QT Interval 346 ms MUSE ECG QTC Interval 437 ms MUSE ECG P Merced[place] 73 degrees MUSE ECG R [place] 32 degrees MUSE ECG T Wave Mercedita 57 degrees MUSE ECG Diagnosis Normal sinus rhythm MUSE ECG Diagnosis Normal ECG MUSE ECG Diagnosis MUSE ECG Diagnosis Confirmed by Herman Lima ([id number]) on 10/25/2024 10:14:24 AM MUSE ECG 10/25/2024 9:13 AM EDT 10/25/2024 10:14 AM EDT us Vonnie RAMOS ECG ORDERABLES Final Result MUSE ECG documented in this encounter Visit Diagnoses Diagnosis Atrial flutter with rapid ventricular response (CMS/HCC)- Primary High risk medication use Anesthesia of skin Disturbance of skin sensation documented in this encounter Additional Health Concerns Assessment Noted Time PHQ-9 Depression Total Score: 0 09/01/19 3:26 PM EDT A fall risk assessment has been complete d for the patient 10/06/2024 2:29 PM EDT A Body Mass Index follow-up plan has been documented for the patient 10/31/2024 4:09 PM EDT documented as of this encounter Care Teams Senior Physician Relationship Specialty Start Date End Date Laurie Gutierrez MD [address] [place] [address] PCP - General 12/09/23 Joshua Martínez MD [address] [facility] [address] [place] [address] Consulting Physician Radiation Oncology 09/19/24 Jasmina Smith LPN VALUE-BASED [place] [address] TCM Nurse 10/19/24 11/01/24 documented as of this encounter
--- OUTSIDE RECORDS SUMMARY | 2024-10-25 10:03 | XMS_ITS | Encounter Summary ---
Author Organization [facility] Address [address] [place] [address] Care Team Providers [facility] [place] Lifeguard Name Role Phone Laurie Gutierrez MD Primary Care Provider [phone] Joshua Martínez MD Unavailable Jasmina Smith LPN Unavailable Unavailable Reason for Referral * Consultation (Routine) - Authorized Specialty Diagnoses / Procedures Referred By Mackenzie t Referred To Contact Family Medicine Diagnoses Pneumonia of right upper lobe due to infectious organism Robert Amin MD [address] [place] [address] Phone: tel: fax: Referral ID Status Reason Start Date Expiration Date V isits Requested Visits Authorized [id number] Authorized 10/31/2024 05/02/2026 1 1 * Home Health (Routine) - Authorized Specialty Diagnoses / Procedures Referred By Mackenzie carreon Referred To Contact Home Health Services Diagnoses Pneumonia of right upper lobe due to infectious organism Robert Amin MD [address] [place] [address] Phone: tel: fax: Referral ID Status Reason Start Date Expiration Date Visits Requested Visits Authorized [id number] Authorized Specialty Services Required 10/27/2024 04/28/2026 999 999 Reason for Visit * Reason Comments Shortness of Breath Weakness - Generalized * Auth/Cert (Routine) Specialty Diagnoses / Procedures Referred By Contac t Referred To Contact Diagnoses Pneumonia of right upper lobe due to infectious organism recurrent pneumonia Robert Amin MD [address] [place] [address] Phone: tel: fax: [facility] Emergency Department [address] [place] [address] Phone: tel: Referral ID Status Reason Start Date Expiration Date Visits Re quested Visits Authorized [id number] 1 1 Encounter Details Date Type Department Care Team (Late st Contact Info) Description 10/25/2024 10:03 AM EDT - 10/31/2024 5:33 PM EDT Hospital Encounter [facility] Inpatient [address] [place] [address] Doris Contreras MD [address] [place] [address] Robert Amin MD [address] [place] [address] Pneumonia of right upper lobe due to infectious organism (Primary Dx); Hypoxia; Other fatigue Discharge Disposition: Home or Self Care Social [...] any time in the past 12 m onths, were you homeless or living in a halfway (including now)? No 10/14/2024 Humiliation, Afraid, Rape, [...] any time in the past 12 m [facility], were you homeless or living in a halfway (including now)? No 10/26/2024 CAGE ASSESSMENT Answer Date Recorded Cage unable to access Not on file 10/27/2024 Cage max number of drinks Not on file 2024 Cage Beverages a week Not on file 10/27/2024 Have you ever felt you should CUT down on your d rinking? 0 10/27/2024 Have you been ANNOYED by people criticizing your drinking? 0 10/27/2024 Have you felt GUILTY about your drinking? 0 10/27/2024 Have you had a drink first t laurie in the morning ([employer]) to steady your nerves or to get rid of a hangover? 0 10/27/2024 CAGE Questionnaire Score 0 025 Utilities Answer Date Recorded In the past 12 months has [employer], gas, oil, or water [employer] threatened to shut off services in your home? No 10/26/2024 Comments No Sex and Gender Information Value Date Recorded Sex Assigned at Not on file Legal Sex Female 8:32 PM EDT Gender Identity Not on file Sexual Orientation Not on file documented as of this encounter Last Filed Vital Signs Vital Sign Reading Time Taken Comments Blood Pressure 138/79 10/31/2024 3:54 PM EDT Pulse 77 10/31/2024 3:54 PM EDT Temperature 36.7 C (98 F) 10/31/2024 3:54 PM EDT Respiratory Rate 18 10/31/2024 3:54 PM EDT Oxygen Saturation 93% 10/31/2024 3:54 PM EDT Inhaled Oxygen Concentration - - Weight 114 kg (250 lb 14.1 oz) 10/27/2024 9:57 P M EDT Height 171 cm (5' 7.32 ) 10/27/2024 9:57 PM EDT Body Mass Index 38.92 10/27/2024 9:57 PM EDT documented in this encounter Functional Status * Calculated C-SSRS Risk Score (Lifetime/Recent) Answer Date of Assessment Author No Risk Indicated 10/31/2024 7:00 AM EDT Ruben germain, Lisa Colunga RN * Question Answer Date of Assessment Author 1. Wish to be (Past 1 Month) No 10/31/2024 7:00 AM EDT Lisa Rankin RN 2. Non-Specific Active Suici radha Thoughts (Past 1 Month) No 10/31/2024 7:00 AM EDT Luís Rankin RN 6. Suicidal Behavior (Lifetime) No 7:00 AM EDT Lisa Rankin RN documented as of this encounter Discharge Instructions * Discharge Instructions* Sasha Nuñez DO - 10/31/2024 3:53 PM EDT You were hospitalized for a bacterial pseudomonas pneumonia. This was treated with 5 days of IV antibiotics and you have improved. Medications - Continue all your home medications on discharge. - Increase your nightly insulin to 25 units - Take 15u of short acting insulin with meals + the sliding scale on top of this Follow up - Please follow up with oncology to determine when you can re-start your chemo regimen. - Recommend to follow up with PCP within 1 month for check-in. If you experience chest pain or worsening shortness of breath please return to the ED for further evaluation. documented in this encounter Medications at Time [...] tablet Take 1 tablet by mouth daily. cholestyramine light (Prevalite) 4 GM/DOSE powder Take 1 packet by mouth 2 times a day with meals. 10/31/2024 dexamethasone (Decadron) 2 MG tablet Take 1 tablet by mouth every 12 hours. 10 tablet 10/18/2024 empagliflozin (Jardiance) 25 MG Take 1 tablet by mouth daily. ferrous sulfate 325 (65 Fe) MG tablet Take 1 tablet by mouth daily with breakfast. FLUoxetine (PROzac) 40 MG capsule Take 1 capsule by mouth daily. glucose (Trueplus Glucose) 4 g chewable tablet Chew 4 tablets as needed for low blood sugar. 50 tablet 12 10/31/2024 hydrOXYzine HCl (Atarax) 25 MG tablet Take 1 tablet by mouth 3 times a day as needed. insulin glargine (Lantus) 100 UNIT/ML injection vial Inject 25 Units under the skin nightly. 10 mL 3 10/31/2024 insulin lispro (Admelog, HumaLOG) 100 UNIT/ML injection pen Inject 15 Units under the skin 3 times a day with meals. magic butt balm (Cholestyramine) CMPD (Magic Butt) Apply 1 Application topically every 1 hour as needed for diaper rash. 80 g 10/31/2024 magic mouthwash BLM (FIRST-Mouthwash ) suspension Swish [...] mouth 2 times a day with meals. metoprolol succinate XL (Toprol-XL) 50 MG 24 hr tablet Take 1 tablet by mouth daily. Do not crush or chew. 90 tablet 11/01/2024 montelukast (Singulair) 10 MG tablet Take 1 tablet by mouth nightly. NovoLOG FLEXPEN 100 UNIT/ML injection pen Inject under the skin 3 (three) times daily with meals per correction scale as follows: blood sugar 150-199 use 2 units, 200-249 use 4 units, 250-299 use 6 units, 300-349 use 8 units, 350-399 use 10 units, >399 12 units and call provider. 15 mL 3 10/31/2024 pantoprazole (Protonix) 40 MG EC tablet Take 1 tablet by mouth daily. Do not crush, chew, or split. pen needle, diabetic 31G X 5 MM misc Use as directed with insulin pen. 100 each 11 10/31/2024 rOPINIRole (Requip) 1 MG tablet Take 1 [...] Take 1 tablet by mouth every evening. gabapentin (Neurontin) 600 MG tablet Take 1 tablet by mouth 4 times a day. 5 ondansetron (Zofran) 8 MG tabletIndication s:Extensive [...] as of this encounter Miscellaneous Notes * Discharge Summary - Felipe Sanchez MD - 10/31/2024 4:55 PM EDT Images from the original note were not included. Hospitalization Admit Date/Time: 10/25/2024 10:03 AM Admitting Attending: Robert Amin Discharge Date: 11/01/2023 Discharge Attending Physician: Robert Amin MD PCP name and Address: Laurie Gutierrez MD [address] [place], [place] [address] [address] Referring provider name and address: Vonnie Barksdale PA [address] [place] [phone] Chief Concern, Brief History of Present Illness, and Hospital Course Teresa Urbina is a 63 y.o. female with a PMH of small-cell lung cancer with brain metastasis s/p craniotomy for metastatic resection on palliative chemo/radiation, COPD on 2L oxygen, and recent hospitalization for neutropenic fever and pneumonia who presents with weakness, shortness of breath with increasing oxygen requirements admitted for acute on chronic hypoxic respiratory failure 2/2 likelybacterial pneumonia. #Acute on chronic hypoxic respiratory failure 2/2 bacterial pneumonia, likely hospital-acquired vs recurrent CAP - Recent hospitalization for neutropenic fever and sepsis 2/2 pneumonia and treated with cefepime - Imaging on CT PE with worsening features and consolidation c/f worsening pneumonia - Completed 5 days of piperacillin/tazobactam - Sputum culture with Pseudomonas aeruginosa with susceptibilities of piperacillin/tazobactam - Improved daily on piperacillin/tazobactam and completed a 7 day course with complete resolution of respiratory symptoms #T2DM c/b peripheral neuropathy - Glucose 200 on BMP - Last A1c 08/2024 6.3 - Resumed home basal/bolus regimen #Anemia of likely chronic disease/inflammation - Baseline Hgb ~10 - Hgb 7.4 on admission - No overt signs of bleeding at this time - HDS, required no intervention #Sacral and inguinal rash - Will consult wound care with discharge recommendations of daily miconazole cream for inguinal andlabial folds Chronic medical conditions #A-fib: continued home rivaroxaban and metoprolol succinate, electrolytes K+ >4, Mg2+ >2 #Metastatic small-cell lung cancer with brain metastasis s/p craniotomy on palliative chemo/radiation: continued dexamethasone 2mg q12h per medical oncology recommendations, continue radiation treatment as scheduled Surgeries and Procedures Procedures performed in this encounter Procedures POC Ultrasound - Bedside POC Ultrasound - Bedside Medication List .. Alum & Mag hydroxide, Zinc Oxide, Cholestyramine balm CMPD Commonly known as: Magic Butt Apply 1 Application topically every 1 hour as needed for diaper rash. atorvastatin 40 MG tablet Commonly known as: Lipitor Take 1 tablet by mouth daily. benzonatate 100 MG capsule Commonly known as: Tessalon Take 1 capsule by mouth 3 times a day as needed for cough. Do not crush or chew. Breztri Aerosphere 160-9-4.8 MCG/ACT aerosol Generic drug: Xxirelj-Utzjdiizkip-Ojtzczbykt Inhale 2 puffs 2 (two) times a day. Calcium Carb-Cholecalciferol 600-10 MG-MCG tablet Take 1 tablet by mouth daily. calcium carbonate 500 MG chewable tablet Commonly known as: Tums Chew 1 tablet 4 times a day as needed for indigestion or heartburn. cetirizine 10 MG tablet Commonly known as: ZyrTEC Take 1 tablet by mouth daily. Cyanocobalamin ER 1000 MCG tablet controlled-release Take 1 tablet by mouth Daily. dexamethasone 2 MG tablet Commonly known as: Decadron Take 1 tablet by mouth every 12 hours. empagliflozin 25 MG Commonly known as: Jardiance Take 1 tablet by mouth daily. ferrous sulfate 325 (65 Fe) MG tablet Take 1 tablet by mouth daily with breakfast. FLUoxetine 40 MG capsule Commonly known as: PROzac Take 1 capsule by mouth daily. gabapentin 600 MG tablet Commonly known as: Neurontin Take 1 tablet by mouth 4 times a day. glucose 4 g chewable tablet Commonly known as: Trueplus Glucose Chew 4 tablets as needed for low blood sugar. hydrOXYzine HCl 25 MG tablet Commonly known as: Atarax Take 1 tablet by mouth 3 times a day as needed. insulin glargine 100 UNIT/ML injection vial Commonly known as: Lantus Inject 25 Units under the skin nightly. insulin lispro 100 UNIT/ML injection pen Commonly known as: Admelog, HumaLOG Inject 15 Units under the skin 3 times a day with meals. magic mouthwash BLM suspension Swish and spit [...] mouth 2 times a day with meals. metoprolol succinate XL 50 MG 24 hr tablet Commonly known as: Toprol-XL Take 1 tablet by mouth daily. Do not crush or chew. Start taking on: November 01, 2024 montelukast 10 MG tablet Commonly known as: Singulair Take 1 tablet by mouth nightly. NovoLOG FLEXPEN 100 UNIT/ML injection pen Generic drug: insulin aspart Inject under the skin 3 (three) times daily with meals per correction scale as follows: blood [id number] use 2 units, 200-249 use 4 units, 250-299 use 6 units, 300-349 use 8 units, 350-399 use 10 units, >399 12 units and call provider. ondansetron 8 MG tablet Commonly known as: Zofran Take 1 tablet by mouth 2 times a day. Take on Day 4 of cycle and then take PRN pantoprazole 40 MG EC tablet Commonly known as: Protonix Take 1 tablet by mouth daily. Do not crush, chew, or split. pen needle, diabetic 31G X 5 MM misc Use as directed with insulin pen. prochlorperazine 10 MG tablet Commonly known as: Compazine Take 1 tablet by mouth every 6 hours as needed for nausea or vomiting. rOPINIRole 1 MG tablet Commonly known as: Requip Take 1 tablet by mouth 2 times a day. SITagliptin 50 MG tablet Commonly known as: Januvia Take 1 tablet by mouth daily. tiZANidine 2 MG tablet Commonly known as: Zanaflex Take 1 tablet by mouth nightly. triamterene-hydrochlorothiazide 37.5-25 MG tablet Commonly known as: Maxzide-25 Take 1 tablet by mouth every morning. Xarelto 20 MG tablet Generic drug: rivaroxaban Take 1 tablet by mouth every evening. Where to Get Your Medications These medications were sent to [facility] - [place], [place] - [email or web address] [place] [id number] Alum & Mag hydroxide, Zinc Oxide, Cholestyramine balm CMPD glucose 4 g chewable tablet insulin glargine 100 UNIT/ML injection vial metoprolol succinate XL 50 MG 24 hr tablet NovoLOG FLEXPEN 100 UNIT/ML injection pen pen needle, diabetic 31G X 5 MM misc Discharge Diagnosis Medical Problems Active and Resolved Hospital Problems Hospital * (Principal) Pneumonia of right upper lobe due to infectious organism Post Discharge Instructions N/a Outpatient Follow-Up Future Appointments Date Time Provider Department Center 11/01/2024 10:45 AM [facility] ON[facility] 21 PLAT [facility] RO [facility] Vasquez 11/02/2024 11:15 AM [facility] ONC 21 PLAT [facility] RO [facility] Vasquez 11/04/2024 11:15 AM [facility] RAD ONC 21 PLAT CH RO [facility] Vasquez 11/07/2024 12:45 PM [facility] RAD ONC 21 PLAT CH RO [facility]quez 11/08/2024 11:[address] [facility] 11/08/2024 11:20 AM [facility] 11/08/2024 1:30 PM August Arriola [facility] 11/08/2024 2:00 PM [facility] 1 INFUSION TREATMENT [id number] [facility] 11/09/2024 3:00 PM [facility] 2 INFUSION TREATMENT [id number] [facility] 11/10/2024 3:00 PM [facility] 1 INFUSION TREATMENT [id number] [facility] 01/19/2025 9:30 AM GS MR 2 MRIGSH [facility] 01/19/2025 10:45 AM Abhilash Bangura [facility] 03/08/2025 1:00 PM Teresita Oconnell MD [facility] Heart I Test Results Pending At Discharge Pending Labs Order Current Status Additional Susceptibilities and/or Identification Collected (10/27/24 1142) Wilbur auris Surveillance by PCR In process Pertinent Physical Exam At Time of Discharge Physical Exam Constitutional: General: She is not in acute distress. Appearance: She is not toxic-appearing. Cardiovascular: Rate and Rhythm: Normal rate. Heart sounds: No murmur heard. Pulmonary: Effort: Pulmonary effort is normal. No respiratory distress. Breath sounds: Normal breath sounds. No decreased air movement. Comments: Improving Musculoskeletal: General: No tenderness. Right lower leg: Edema (1+ pitting, improving) present. Left lower leg: Edema (1+ pitting, improving) present. Skin: General: Skin is warm. Coloration: Skin is not jaundiced. Neurological: Mental Status: She is alert. Discharge Disposition/Condition Disposition: Other (specify) [facility] Condition: Stable (s/sx potential problems absent or manageable) I spent < 30 minutes of patient care and instruction time in preparation for this discharge. Cosigned by Robert Amin MD at 10/31/2024 7:00 PM EDT Associated attestation - Robert Amin MD - 10/31/2024 7:00 PM EDT I saw and evaluated the patient with the resident/fellow. I discussed the case with the resident/fellow and agree with the findings and plan as documented. * Progress Notes - Genia Grissom - 10/31/2024 3:43 PM EDT Case Management Discharge Note Teresa Urbina 63 y.o. female CSN: [id number] Admission: 10/25/2024 10:03 AM Primary Problem: Pneumonia of right upper lobe due to infectious organism Primary Plating Foreman: Primary Caregiver: Self Assistance Available at Discharge: Family/Plating Foreman(s) Readiness Assessed to care for patient at home: Yes Housing Circumstances-Z Codes: Housing Circumstances (select all that apply): Low Income (101-300% Federal Poverty Guidlines) - Z596 Discharge Facility/Level of Care Needs: Discharge Facility/Level of Care Needs: 1-Home or Self Care DME/Equipment Needed after Discharge: Equipment Currently Used at Home: walker, rolling, oxygen (2L of O2 at home) Readmission Within the Last 30 Days: Readmission Within the Last 30 Days: previous discharge plan unsuccessful Medicare Documentation: Medicare Second Notice?: No Follow-up: No follow-up provider specified. Discharge Transportation: Transportation Home at Discharge: Family/Friend will Provide Has discharge transport been arranged?: Yes What day is the transport expected?: 10/31/24 What time is the transport expected?: 1800 Follow Up Transport: Transportation Needed to Follow up Appoinments: Family/Friend will Provide Additional Comments: Pt will DC to the [facility] this date. Pt was accepted to go to the [facility] until 11/10/24. Pt has transportation upon DC. No further SW concerns identified at this time. SW will monitor pt's progress and will follow up with DC planning and needs as appropriate. Genia Grissom, FLAGMAN, CHIPS SCREEN TENDER Social Work Senior Department of Case Management [facility] * Progress Notes - Genia Grissom - 10/31/2024 1:40 PM EDT Case Management Adult Progress Note Teresa Urbina 63 y.o. female CSN: [id number] Admission: 10/25/2024 10:03 AM Primary Problem: Pneumonia of right upper lobe due to infectious organism Anticipated Discharge Date: 48 hours Additional Comments: According to MD's pt is MR to DC this date. Pt requested to go to the [facility] upon DC to complete her radiation and chemo. SW sent referral to the [facility] via email. [facility] stated that theywould not have a bed available til potentially Thursday. Pt stated her family has packed her houseup. Pt requesting to stay inpatient till she can DC to the [facility]. MD's not ready to DC pt. Update: [facility] can accept the pt on 11/02/24 through 11/10/24. Pt will DC to [facility] on 11/02/24. Genia Grissom, FLAGMAN, CHIPS SCREEN TENDER Social Work Senior Department of Case Management [facility] * Progress Notes - Felipe Sanchez MD - 10/31/2024 12:22 PM EDT Images from the original note were not included. Hospital Medicine Progress Note Subjective Subjective/Night NAEON. Remains comfortable this AM. No new complaints today. Objective Objective Last Recorded Vitals Blood pressure 128/81, pulse 72, temperature 36.7 ??C (98.1 ??F), temperature source Oral, resp. rate 16, height 1.71 m (5' 7.32 ), weight 114 kg (250 lb 14.1 oz), SpO2 94%. Physical Exam Constitutional: General: She is not in acute distress. Appearance: She is not toxic-appearing. Cardiovascular: Rate and Rhythm: Normal rate. Heart sounds: No murmur heard. Pulmonary: Effort: Pulmonary effort is normal. No respiratory distress. Breath sounds: Normal breath sounds. No decreased air movement. Comments: Improving Musculoskeletal: General: No tenderness. Right lower leg: Edema (1+ pitting, improving) present. Left lower leg: Edema (1+ pitting, improving) present. Skin: General: Skin is warm. Coloration: Skin is not jaundiced. Neurological: Mental Status: She is alert. Data Labs personally reviewed: Lab Results Component Value Date GLUCOSE 337 (H) 10/31/2024 NA 139 10/31/2024 K 4.2 10/31/2024 CO2 25 10/31/2024 CL 102 10/31/2024 BUN 15 10/31/2024 CREATININE 0.63 10/31/2024 Lab Results Component Value Date WBC 6.69 10/31/2024 RBC 2.34 (L) 10/31/2024 HGB 7.1 (L) 10/31/2024 HCT 23.9 (L) 10/31/2024 No results found for: AST , ALT , ALKPHOS , BILITOT Imaging Pertinent imaging personally reviewed CT Angio Pulmonary Embolism 10/25/2024 CLINICAL INDICATION: dyspnea COMPARISON: None. IMPRESSION: No pulmonary embolism. Airspace disease in the dependent portion of the right upper lobe and right lower lobe. Interstitial thickening in the posterior aspect of the bilateral upper lobes and lower lobes. CT Chest W IV Contrast 10/13/2024 CLINICAL INDICATION: Pneumonia, complication suspected COMPARISON: September 01, 2024 IMPRESSION: Right lower lobe nodular airspace disease concerning for infection. Slight decrease in size of medial right lower lobe pleural nodule Results Procedure Component Value Units Date/Time Blood Culture (Aerobic/Anaerobet Set) [[id number]] Collected: 10/26/24 0303 Order Status: Completed Specimen: Blood from Hand, Left Updated: 10/27/24 0502 Culture No growth at day 1 Blood Culture (Aerobic/Anaerobet Set) [[id number]] Collected: 10/25/24 2110 Order Status: Completed Specimen: Blood, Venous Updated: 10/26/24 2202 Culture No growth at day 1 Respiratory Culture and Gram Stain [[id number]] (Abnormal) Collected: 10/26/24 0537 Order Status: Completed Specimen: Sputum, Expectorated Updated: 10/26/24 1421 Culture Smear contains >=10 squamous epithelial cells per low power field, suggestive of poor quality. Culture not performed. A credit has been issued. Gram Stain Result Greater than 25 WBC/LPF Greater than 10 Epithelial cells/LPF Few Gram negative rods Rare Budding yeast Few Gram positive rods Rare Gram positive cocci in clusters Streptococcus pneumoniae and Legionella Urinary Antigen [[id number]] (Normal) Collected: 10/26/24 0537 Order Status: Completed Specimen: Urine, Clean Catch Updated: 10/26/24 0743 Legionella pneumophila serogroup 1 Antigen Result (Urine) Negative Streptococcus pneumoniae Antigen Result (Urine) Negative Methicillin Resistant Staphylococcus aureus (MRSA) by PCR [[id number]] (Normal) Collected: 832 Order Status: Completed Specimen: Swab from Nares Updated: 10/25/24 2041 Methicillin Resistant Staphylococcus aureus (MRSA) by PCR Not Detected Nasopharyngeal Respiratory Panel [[id number]] (Normal) Collected: 10/25/24 104 Order Status: Completed Specimen: Swab from Nasopharynx Updated: 10/25/24 1507 Nasopharyngeal Respiratory PCR Interpretation Not Detected for all analytes SARS CoV-2/COVID-19 by PCR - Rapid [[id number]] (Normal) Collected: 10/25/24 104 Order Status: Completed Specimen: Swab from Nasopharynx Updated: 10/25/24 1213 SARS CoV-2/COVID-19 RNA PCR Result Not Detected Assessment/Plan Assessment & Plan Principal Problem: Pneumonia of right upper lobe due to infectious organism Teresa Urbina is a 63 y.o. female admitted for acute bacterial pneumonia. This condition poses an acute threat to life/bodily function. Continues to improve. Will anticipate 5d total of pip/tazo. Waiting on speciation from sputum if available. Plan to go to [facility] to finish radiation treatments. Patient amenable to going home to pack then returning to [facility]. Will increase insulin today due to persistent hyperglycemia. Culture resulted Pseudomonas, susceptibility pending. Will be useful information in case further episodes of pneumonia occur to help determine agent/duration of treatment. #Acute on chronic hypoxic respiratory failure 2/2 bacterial pneumonia, likely hospital-acquired vs recurrent CAP - Recent hospitalization for neutropenic fever and sepsis 2/2 pneumonia and treated with cefepime - Imaging on CT PE with worsening features and consolidation c/f worsening pneumonia - Respiratory culture with few GNRs (poor specimen); further culture with Pseudomonas; susceptibility pending - Pseudomonas showing susceptibility to aztrenoam and moderate susceptibility to Zosyn - Respiratory culture growing carbapenem resistant Pseudomonas Plan: - Finish Zosyn today. - Continue guaifenesin, tessalon, DuoNebs PRN for symptomatic management #T2DM - Last A1c 08/2024 6.3 Plan - Will increase insulin glargine 30u sub-q nightly and continue insulin lispro 15u TID WM - Will continue to monitor for s/sx of hypoglycemia - Continue diabetic diet #Anemia of likely chronic disease/inflammation - Baseline Hgb ~10 - Hgb 7.4 on admission - No overt signs of bleeding at this time - HDS Plan: - Will order intermittent CBC to monitor hemoglobin - Will monitor for s/sx of bleeding/anemia and intervene PRN - Will transfuse for hgb <7 #Sacral and inguinal rash - Will consult wound care #C/f vaginal candidiasis - Unclear if true Candidal infection, given lack of overt discharge, pain, or pruritus of the vagina Plan: - Continue miconazole cream daily for inguinal folds and labial folds Chronic medical conditions #HTN: will hold home carvedilol for low-normotension #Chronic pain: resume home gabapentin #COPD: resume home inhalers, schedule albuterol neb q12h #Mood: resume home fluoxetine and PRN hydroxyzine #HLD: resume home statin #Obesity, class III (BMI 41): complicates all aspects of care #A-fib: continue home rivaroxaban and metoprolol succinate, keep electrolytes K+ >4, Mg2+ >2;will give spot metoprolol tartrate PRN RVR #Metastatic small-cell lung cancer with brain metastasis s/p craniotomy on palliative chemo/radiation: continue dexamethasone 2mg q12h per medical oncology recommendations, continue radiation treatment as scheduled Care today included: HIGHRISK: Discussion of management/test with another provider: medical oncology Electronically Signed by: Felipe Sanchez MD - 10/31/2024 - 12:31 PM Cosigned by Robert Amin MD at 10/31/2024 1:21 PM EDT Associated attestation - Robert Amin MD - 10/31/2024 1:21 PM EDT I saw and evaluated the patient with the resident/fellow. I discussed the case with the resident/fellow and agree with the findings and plan as documented. * Progress Notes - Tereso Yung Nia - 10/31/2024 12:15 PM EDT Physical Therapy Treatment Patient Name: Teresa Urbina Today's Date: 10/31/2024 PT Discharge Recommendations: Home with assistance, Home health PT, Home health OT Equipment Recommended: Patient owns appropriate equipment Subjective Patient agreeable to physical therapy. Participants in Care Family/Caregiver Present: No Feed Weigher: Not Applicable Presentation Oxygen Oxygen Therapy: None (Room air) Lines and Tubes Lines and Tubes: Intravenous access Pre-Session RN and patient gave consent for PT treatment session. Patient received Sitting: edge ofbed, Lines intact. RN agreeable to therapy. Post-Session Patient positioned for comfort and pressure relief at end of session, all needs met. Sitting: edge of bed, Lines intact, RN notified, Call light in reach. All needs in reach. Precautions Medical Precautions: Fall precautions Objective Pain Pain Score (0-10): 0 Delirium Screening [place] Agitation Sedation Scale (RASS): Alert and calm Confusion Assessment Method-ICU (CAM-ICU/PCAM-ICU) Feature 3: Altered Level of Consciousness: Negative Therapeutic Activity (24 minutes) Patient participated in therapeutic activities focused on progressing functional mobility, functional strength, and safety, along with improving upright activity tolerance. FAILURE ANALYSIS TECHNICIAN provided cues to promote maximal independence and safety. Refer to sections below for further details. Transfers Transfer Interventions: Patient performed 3 reps of sit to/from stand from different surface levels. Provided cues for proper hand placement, BLE set-up, forward trunk leans to initiate coming to stand, and safe descent to sit. Transfer Exam: Sit to stand Level of [place]: Stand-by assist Physical/Nonphysical Assist: Verbal Cues, Minimal cues Transfer Exam: Stand to Sit Level of [place]: Stand-by assist Physical/Nonphysical Assist: Verbal Cues, Minimal cues Ambulation Device: (IV pole) Assistance: Standby assist, Minimal verbal cues Distance : 125 feet, standing rest break, 125 feet, seated rest break, 50 feet, standing rest break, 50 feet, seated rest break, 8 feet Ambulation Comments: Demonstrated slow pace, decrease step length, decrease foot clearance, downward gaze; distance limited by fatigue. Cues for upright posture, increase step length, foot clearance,and self pace. RPE 7/10. Educated patient on energy conservation and safety awareness. Therapeutic Exercise (15 minutes) Patient participated in bilateral LE exercises while sitting unsupported EOB to address strength, muscular endurance and activity tolerance and assist in overall functional mobility performance. Patient performed ankle pumps, quad sets, gluteal sets, hip abduction/adduction, hip flexion (marching),and long arc quads with AROM x 10 reps each. Patient provided with cueing for proper return of demonstration of exercises. Educated patient on HEP and encouraged to perform TID. Access Code: [email or web address] URL: [email or web address] Date: 10/31/2024 Prepared by: Vishnu Exercises - Seated Long Arc Quad - 3 x daily - 7 x weekly - 1 sets - 20 reps - Seated March - 3 x daily - 7 x weekly - 1 sets - 20 reps - Supine Ankle Pumps - 3 x daily - 7 x weekly - 1 sets - 20 reps - Supine Quad Set - 3 x daily - 7 x weekly - 1 sets - 20 reps - 3 sec hold - Supine Gluteal Sets - 3 x daily - 7 x weekly - 1 sets - 20 reps - 3 sec hold - Supine Hip Abduction - 3 x daily - 7 x weekly - 1 sets - 20 reps - Supine Heel Slide - 3 x daily - 7 x weekly - 1 sets - 20 reps - Supine Active Straight Leg Raise - 3 x daily - 7 x weekly - 1 sets - 20 reps Assessment Patient progressed with functional mobility as noted by improved ambulation total. She required seated and standing rest breaks to complete ambulation. Patient would continue to benefit from further skilled PT services during the remainder of hospitalization stay to promote maximal independence with functional mobility, improve strengthening, and activity tolerance to assist with safe transition home. PT Recommendations Discharge Destination: Home with assistance, Home health PT, Home health OT Discharge Equipment: Patient owns appropriate equipment Plan Continue current plan of care. PT Goals PT GOAL DETAILS Goal Established Date Time Frame Goal Status PT Goal 1: Pt will be IND with HEP and discharge recommendations. 10/26/24 2 weeks PT Goal 2: Pt will perform sup<>sit IND. 10/26/24 2 weeks PT Goal 3: Pt will perform STS IND. 10/26/24 2 weeks PT Goal 4: Pt will ambulate 300' with LRAD and SBA and and maintain SPO2 >88%. 10/26/24 2 weeks PT Goal 5: Pt will navigate up/down 3 steps with use of unilateral handrail and SBA. 10/26/24 2 weeks Written by Yung Rider on 10/31/24 at 3:17 PM. * Care Plan - Lisa Rankin RN - 10/31/2024 7:51 AM EDT Problem: Adult Inpatient Plan of Care Goal: Plan of Care Review Outcome: Ongoing, Progressing Goal: Patient-Specific Goal (Individualized) Outcome: Ongoing, Progressing Goal: Absence of Hospital-Acquired Illness or Injury Outcome: Ongoing, Progressing Goal: Optimal Comfort and Wellbeing Outcome: Ongoing, Progressing Goal: Readiness for Transition of Care Outcome: Ongoing, Progressing Problem: Mobility Impairment Goal: Optimal Mobility Outcome: Ongoing, Progressing Problem: Fall Injury Risk Goal: Absence of Fall and Fall-Related Injury Outcome: Ongoing, Progressing * Care Plan - Tamara Kumar RN - 10/30/2024 9:27 PM EDT Problem: Adult Inpatient Plan of Care Goal: Plan of Care Review Outcome: Ongoing, Progressing Flowsheets (Taken 10/30/20242126) Plan of Care Reviewed With: patient * Progress Notes - Felipe Sanchez MD - 10/30/2024 12:28 PM EDT Images from the original note were not included. Hospital Medicine Progress Note Subjective Subjective/Night NAEON. Breathing well this morning, informed her of her sputum culture results and the fact that she will likely need one additional day of antibiotic therapy. She expressed understanding of this. Otherwise no new complaints. Objective Objective Last Recorded Vitals Blood pressure 135/72, pulse 77, temperature 36.6 ??C (97.8 ??F), temperature source Oral, resp. rate 16, height 1.71 m (5' 7.32 ), weight 114 kg (250 lb 14.1 oz), SpO2 92%. Physical Exam Constitutional: General: She is not in acute distress. Appearance: She is not toxic-appearing. Cardiovascular: Rate and Rhythm: Normal rate. Heart sounds: No murmur heard. Pulmonary: Effort: Pulmonary effort is normal. No respiratory distress. Breath sounds: No decreased air movement. Examination of the right-upper field reveals wheezing. Examination of the left-upper field reveals wheezing. Examination of the right-middle field reveals wheezing. Examination of the left- middle field reveals wheezing. Examination of the right-lower field reveals wheezing. Examination of the left-lower field reveals wheezing. Wheezing present. Comments: Improving Musculoskeletal: General: No tenderness. Right lower leg: Edema (1+ pitting, improving) present. Left lower leg: Edema (1+ pitting, improving) present. Skin: General: Skin is warm. Coloration: Skin is not jaundiced. Neurological: Mental Status: She is alert. Data Labs personally reviewed: Lab Results Component Value Date GLUCOSE 347 (H) 10/30/2024 NA 139 10/30/2024 K 4.8 10/30/2024 CO2 27 10/30/2024 CL 103 10/30/2024 BUN 11 10/30/2024 CREATININE 0.62 10/30/2024 No results found for: WBC , RBC , HGB , HCT No results found for: AST , ALT , ALKPHOS , BILITOT Imaging Pertinent imaging personally reviewed CT Angio Pulmonary Embolism 10/25/2024 CLINICAL INDICATION: dyspnea COMPARISON: None. IMPRESSION: No pulmonary embolism. Airspace disease in the dependent portion of the right upper lobe and right lower lobe. Interstitial thickening in the posterior aspect of the bilateral upper lobes and lower lobes. CT Chest W IV Contrast 10/13/2024 CLINICAL INDICATION: Pneumonia, complication suspected COMPARISON: September 01, 2024 IMPRESSION: Right lower lobe nodular airspace disease concerning for infection. Slight decrease in size of medial right lower lobe pleural nodule Results Procedure Component Value Units Date/Time Blood Culture (Aerobic/Anaerobet Set) [[id number]] Collected: 10/26/24 0303 Order Status: Completed Specimen: Blood from Hand, Left Updated: 10/27/24 0502 Culture No growth at day 1 Blood Culture (Aerobic/Anaerobet Set) [[id number]] Collected: 10/25/24 2110 Order Status: Completed Specimen: Blood, Venous Updated: 10/26/24 2202 Culture No growth at day 1 Respiratory Culture and Gram Stain [[id number]] (Abnormal) Collected: 10/26/24 0537 Order Status: Completed Specimen: Sputum, Expectorated Updated: 10/26/24 1421 Culture Smear contains >=10 squamous epithelial cells per low power field, suggestive of poor quality. Culture not performed. A credit has been issued. Gram Stain Result Greater than 25 WBC/LPF Greater than 10 Epithelial cells/LPF Few Gram negative rods Rare Budding yeast Few Gram positive rods Rare Gram positive cocci in clusters Streptococcus pneumoniae and Legionella Urinary Antigen [[id number]] (Normal) Collected: 10/26/2437 Order Status: Completed Specimen: Urine, Clean Catch Updated: 10/26/24 0743 Legionella pneumophila serogroup 1 Antigen Result (Urine) Negative Streptococcus pneumoniae Antigen Result (Urine) Negative Methicillin Resistant Staphylococcus aureus (MRSA) by PCR [[id number]] (Normal) Collected: 10/25/24 1832 Order Status: Completed Specimen: Swab from Nares Updated: 10/25/24 2041 Methicillin Resistant Staphylococcus aureus (MRSA) by PCR Not Detected Nasopharyngeal Respiratory Panel [[id number]] (Normal) Collected: 10/25/24 1042 Order Status: Completed Specimen: Swab from Nasopharynx Updated: 10/25/24 1507 Nasopharyngeal Respiratory PCR Interpretation Not Detected for all analytes SARS CoV-2/COVID-19 by PCR - Rapid [[id number]] (Normal) Collected: 10/25/24 1042 Order Status: Completed Specimen: Swab from Nasopharynx Updated: 10/25/24 1213 SARS CoV-2/COVID-19 RNA PCR Result Not Detected Assessment/Plan Assessment & Plan Principal Problem: Pneumonia of right upper lobe due to infectious organism Teresa Urbina is a 63 y.o. female admitted for acute bacterial pneumonia. This condition poses an acute threat to life/bodily function. Continues to improve. Will anticipate 5d total of pip/tazo. Waiting on speciation from sputum if available. Plan to go to [facility] to finish radiation treatments. Patient amenable to going home to pack then returning to [facility]. Will increase insulin today due to persistent hyperglycemia. Culture resulted Pseudomonas, susceptibility pending. Will be useful information in case further episodes of pneumonia occur to help determine agent/duration of treatment. #Acute on chronic hypoxic respiratory failure 2/2 bacterial pneumonia, likely hospital-acquired vs recurrent CAP - Recent hospitalization for neutropenic fever and sepsis 2/2 pneumonia and treated with cefepime - Imaging on CT PE with worsening features and consolidation c/f worsening pneumonia - Respiratory culture with few GNRs (poor specimen); further culture with Pseudomonas; susceptibility pending - Pseudomonas showing susceptibility to aztrenoam and moderate susceptibility to Zosyn Plan: - Continue piperacillin/tazobactam as scheduled for 7 days total for bacterial pneumonia (D6/7) - Will order guaifenesin, tessalon, DuoNebs PRN for symptomatic management #T2DM - Glucose 200 on BMP and persistently elevated - Last A1c 08/2024 6.3 Plan - Will order ACHS POCT, SSI, and hypoglycemia protocol - Will increase insulin glargine 25u sub-q nightly and add insulin lispro 15u TID WM - Will continue to monitor for s/sx of hypoglycemia - Will repeat A1c if indicated - Will place on diabetic diet - Will restart home anti-hyperglycemics as able #Anemia of likely chronic disease/inflammation - Baseline Hgb ~10 - Hgb 7.4 on admission - No overt signs of bleeding at this time - HDS Plan: - Will consent for blood and upload to chart - Will order intermittent CBC to monitor hemoglobin - Will monitor for s/sx of bleeding/anemia and intervene PRN - Will transfuse for hgb <7 #Sacral and inguinal rash - Will consult wound care #C/f vaginal candidiasis - Unclear if true Candidal infection, given lack of overt discharge, pain, or pruritus of the vagina Plan: - Continue miconazole cream daily for inguinal folds and labial folds Chronic medical conditions #HTN: will hold home carvedilol for low-normotension #Chronic pain: resume home gabapentin #COPD: resume home inhalers, schedule albuterol neb q12h #Mood: resume home fluoxetine and PRN hydroxyzine #HLD: resume home statin #Obesity, class III (BMI 41): complicates all aspects of care #A-fib: continue home rivaroxaban and metoprolol succinate, keep electrolytes K+ >4, Mg2+ >2;will give spot metoprolol tartrate PRN RVR #Metastatic small-cell lung cancer with brain metastasis s/p craniotomy on palliative chemo/radiation: continue dexamethasone 2mg q12h per medical oncology recommendations, continue radiation treatment as scheduled Care today included: HIGHRISK: Discussion of management/test with another provider: medical oncology Patient's history, interview/physical exam and above plan were discussed with attending physician. Felipe Sanchez MD Internal Medicine, PGY-1 Cosigned by Robert Amin MD at 10/31/2024 1:18 PM EDT Associated attestation - Robert Amin MD - 10/31/2024 1:18 PM EDT I saw and evaluated the patient with the resident/fellow. I discussed the case with the resident/fellow and agree with the findings and plan as documented. * Care Plan - Flor Pierre RN - 10/30/2024 7:29 AM EDT Problem: Adult Inpatient Plan of Care Goal: Plan of Care Review Outcome: Ongoing, Progressing Goal: Patient-Specific Goal (Individualized) Outcome: Ongoing, Progressing Goal: Absence of Hospital-Acquired Illness or Injury Outcome: Ongoing, Progressing Goal: Optimal Comfort and Wellbeing Outcome: Ongoing, Progressing Goal: Readiness for Transition of Care Outcome: Ongoing, Progressing Problem: Mobility Impairment Goal: Optimal Mobility Outcome: Ongoing, Progressing Problem: Fall Injury Risk Goal: Absence of Fall and Fall-Related Injury Outcome: Ongoing, Progressing * Care Plan - Marion Tate - 10/30/2024 12:29 AM EDT Problem: Adult Inpatient Plan of Care Goal: Plan of Care Review Flowsheets (Taken 10/30/2024 0029) Progress: improving Plan of Care Reviewed With: patient * Progress Notes - Lisa Edwards - 10/29/2024 3:38 PM EDT Case Management Adult Progress Note Teresa Urbina 63 y.o. female CSN: [id number] Admission: 10/25/2024 10:03 AM Primary Problem: Pneumonia of right upper lobe due to infectious organism Weekend SW was notified that patient may be able to dc Thursday or Thursday and she would like to stay at the [facility]. JENSEN faxed over [facility] referral form to [phone]. Addendum: JENSEN was notified that referral form for [facility] must be completed on-line and include specific check in and check out dates. JENSEN will send again at [place]. Lisa Edwards Social Work [phone] * Progress Notes - Darren Moon MD - 10/29/2024 10:54 AM EDT Images from the original note were not included. Hospital Medicine Progress Note Subjective Subjective/Night Patient examined at bedside. Continues to feel well with significant improvement in breathing and weakness. Asked about pneumonia vaccines. Has not had any paperwork regarding the [facility]. Denies any other concerns this morning. Objective Objective Last Recorded Vitals Blood pressure 126/73, pulse 62, temperature 36.8 ??C (98.2 ??F), temperature source Oral, resp. rate 16, height 1.71 m (5' 7.32 ), weight 114 kg (250 lb 14.1 oz), SpO2 97%. Physical Exam Constitutional: General: She is not in acute distress. Appearance: She is not toxic-appearing. Cardiovascular: Rate and Rhythm: Normal rate. Heart sounds: No murmur heard. Pulmonary: Effort: Pulmonary effort is normal. No tachypnea, accessory muscle usage, prolonged expiration, respiratory distress or retractions. Breath sounds: No decreased air movement or transmitted upper airway sounds. Examination of the right-upper field reveals wheezing. Examination of the left- upper field reveals wheezing. Examination of the right-middle field reveals wheezing and rhonchi. Examination of the left-middle field reveals wheezing and rhonchi. Examination of the right-lower field reveals wheezing and rhonchi. Examinationof the left-lower field reveals wheezing and rhonchi. Wheezing and rhonchi present. No decreased breath sounds. Comments: Improving Musculoskeletal: General: No tenderness. Right lower leg: Edema (1+ pitting, improving) present. Left lower leg: Edema (1+ pitting, improving) present. Skin: General: Skin is warm. Coloration: Skin is not jaundiced. Neurological: Mental Status: She is alert. Data Labs personally reviewed: Lab Results Component Value Date GLUCOSE 266 (H) 10/29/2024 NA 145 10/29/2024 K 4.8 10/29/2024 CO2 25 10/29/2024 CL 109 (H) 10/29/2024 BUN 10 10/29/2024 CREATININE 0.66 10/29/2024 No results found for: WBC , RBC , HGB , HCT No results found for: AST , ALT , ALKPHOS , BILITOT Imaging Pertinent imaging personally reviewed CT Angio Pulmonary Embolism 10/25/2024 CLINICAL INDICATION: dyspnea COMPARISON: None. IMPRESSION: No pulmonary embolism. Airspace disease in the dependent portion of the right upper lobe and right lower lobe. Interstitial thickening in the posterior aspect of the bilateral upper lobes and lower lobes. CT Chest W IV Contrast 10/13/2024 CLINICAL INDICATION: Pneumonia, complication suspected COMPARISON: September 01, 2024 IMPRESSION: Right lower lobe nodular airspace disease concerning for infection. Slight decrease in size of medial right lower lobe pleural nodule Results Procedure Component Value Units Date/Time Blood Culture (Aerobic/Anaerobet Set) [[id number]] Collected: 10/26/24 0303 Order Status: Completed Specimen: Blood from Hand, Left Updated: 10/27/24 0502 Culture No growth at day 1 Blood Culture (Aerobic/Anaerobet Set) [[id number]] Collected: 10/25/24 2110 Order Status: Completed Specimen: Blood, Venous Updated: 10/26/24 2202 Culture No growth at day 1 Respiratory Culture and Gram Stain [[id number]] (Abnormal) Collected: 10/26/24 0537 Order Status: Completed Specimen: Sputum, Expectorated Updated: 10/26/24 1421 Culture Smear contains >=10 squamous epithelial cells per low power field, suggestive of poor quality. Culture not performed. A credit has been issued. Gram Stain Result Greater than 25 WBC/LPF Greater than 10 Epithelial cells/LPF Few Gram negative rods Rare Budding yeast Few Gram positive rods Rare Gram positive cocci in clusters Streptococcus pneumoniae and Legionella Urinary Antigen [[id number]] (Normal) Collected: 10/26/24 0537 Order Status: Completed Specimen: Urine, Clean Catch Updated: 10/26/24 0743 Legionella pneumophila serogroup 1 Antigen Result (Urine) Negative Streptococcus pneumoniae Antigen Result (Urine) Negative Methicillin Resistant Staphylococcus aureus (MRSA) by PCR [[id number]] (Normal) Collected: 10/25/24 1832 Order Status: Completed Specimen: Swab from Nares Updated: 10/25/24 2041 Methicillin Resistant Staphylococcus aureus (MRSA) by PCR Not Detected Nasopharyngeal Respiratory Panel [[id number]] (Normal) Collected: 10/25/24 1042 Order Status: Completed Specimen: Swab from Nasopharynx Updated: 10/25/24 1507 Nasopharyngeal Respiratory PCR Interpretation Not Detected for all analytes SARS CoV-2/COVID-19 by PCR - Rapid [[id number]] (Normal) Collected: 10/25/24 1042 Order Status: Completed Specimen: Swab from Nasopharynx Updated: 10/25/24 1213 SARS CoV-2/COVID-19 RNA PCR Result Not Detected Assessment/Plan Assessment & Plan Principal Problem: Pneumonia of right upper lobe due to infectious organism Teresa Urbina is a 63 y.o. female admitted for acute bacterial pneumonia. This condition poses an acute threat to life/bodily function. Continues to improve. Will anticipate 5d total of pip/tazo. Waiting on speciation from sputum if available. Plan to go to [facility] to finish radiation treatments. Patient amenable to going home to pack then returning to [facility]. Will increase insulin today due to persistent hyperglycemia. Culture resulted Pseudomonas, susceptibility pending. Will be useful information in case further episodes of pneumonia occur to help determine agent/duration of treatment. #Acute on chronic hypoxic respiratory failure 2/2 bacterial pneumonia, likely hospital-acquired vs recurrent CAP - Recent hospitalization for neutropenic fever and sepsis 2/2 pneumonia and treated with cefepime - Imaging on CT PE with worsening features and consolidation c/f worsening pneumonia - Respiratory culture with few GNRs (poor specimen); further culture with Pseudomonas; susceptibility pending Plan: - Continue piperacillin/tazobactam as scheduled for 5 days total for bacterial pneumonia - Will follow up blood and respiratory cultures and de-escalate; will send sputum for culture despite non-diagnostic quality - If clinical status worsens, then will consider pulmonary consult for further evaluation of infectious agent causing current condition - Will order guaifenesin, tessalon, DuoNebs PRN for symptomatic management #T2DM - Glucose 200 on BMP and persistently elevated - Last A1c 08/2024 6.3 Plan - Will order ACHS POCT, SSI, and hypoglycemia protocol - Will increase insulin glargine 25u sub-q nightly and add insulin lispro 15u TID WM - Will continue to monitor for s/sx of hypoglycemia - Will repeat A1c if indicated - Will place on diabetic diet - Will restart home anti-hyperglycemics as able #Anemia of likely chronic disease/inflammation - Baseline Hgb ~10 - Hgb 7.4 on admission - No overt signs of bleeding at this time - HDS Plan: - Will consent for blood and upload to chart - Will order intermittent CBC to monitor hemoglobin - Will monitor for s/sx of bleeding/anemia and intervene PRN - Will transfuse for hgb <7 #Sacral and inguinal rash - Will consult wound care #C/f vaginal candidiasis - Unclear if true Candidal infection, given lack of overt discharge, pain, or pruritus of the vagina Plan: - Continue miconazole cream daily for inguinal folds and labial folds Chronic medical conditions #HTN: will hold home carvedilol for low-normotension #Chronic pain: resume home gabapentin #COPD: resume home inhalers, schedule albuterol neb q12h #Mood: resume home fluoxetine and PRN hydroxyzine #HLD: resume home statin #Obesity, class III (BMI 41): complicates all aspects of care #A-fib: continue home rivaroxaban and metoprolol succinate, keep electrolytes K+ >4, Mg2+ >2;will give spot metoprolol tartrate PRN RVR #Metastatic small-cell lung cancer with brain metastasis s/p craniotomy on palliative chemo/radiation: continue dexamethasone 2mg q12h per medical oncology recommendations, continue radiation treatment as scheduled Care today included: HIGHRISK: Discussion of management/test with another provider: medical oncology Patient's history, interview/physical exam and above plan were discussed with attending physician. Stefano Moon MD Internal Medicine, PGY-1 Attending: Dr. Amin Cosigned by Robert Amin MD at 10/29/2024 2:45 PM EDT Associated attestation - Robert Amin MD - 10/29/2024 2:45 PM EDT I saw and evaluated the patient with the resident/fellow. I discussed the case with the resident/fellow and agree with the findings and plan as documented. * Care Plan - Abida Ken - 10/28/2024 9:27 PM EDT Problem: Adult Inpatient Plan of Care Goal: Plan of Care Review Outcome: Ongoing, Progressing Goal: Patient-Specific Goal (Individualized) Outcome: Ongoing, Progressing Goal: Absence of Hospital-Acquired Illness or Injury Outcome: Ongoing, Progressing Goal: Optimal Comfort and Wellbeing Outcome: Ongoing, Progressing Goal: Readiness for Transition of Care Outcome: Ongoing, Progressing Problem: Mobility Impairment Goal: Optimal Mobility Outcome: Ongoing, Progressing * Progress Notes - Darren Moon MD - 10/28/2024 9:10 AM EDT Images from the original note were not included. Hospital Medicine Progress Note Subjective Subjective/Night Patient examined at bedside following a shower and radiation treatment. Radiation treatment went well. Continues to improve. Breathing, cough, and weakness best it has been. Endorses wheezing but no SOB. Tolerating diet. Continues to benefit from incentive spirometer. Objective Objective Last Recorded Vitals Blood pressure 134/70, pulse 66, temperature 36.6 ??C (97.8 ??F), temperature source Oral, resp. rate 18, height 1.71 m (5' 7.32 ), weight 114 kg (250 lb 14.1 oz), SpO2 100%. Physical Exam Constitutional: General: She is not in acute distress. Appearance: She is not toxic-appearing. Cardiovascular: Rate and Rhythm: Normal rate. Rhythm irregular. Heart sounds: No murmur heard. Pulmonary: Effort: Pulmonary effort is normal. No tachypnea, accessory muscle usage, prolonged expiration, respiratory distress or retractions. Breath sounds: No decreased air movement or transmitted upper airway sounds. Examination of the right-upper field reveals wheezing. Examination of the left- upper field reveals wheezing. Examination of the right-middle field reveals wheezing and rhonchi. Examination of the left-middle field reveals wheezing and rhonchi. Examination of the right-lower field reveals wheezing and rhonchi. Examinationof the left-lower field reveals wheezing and rhonchi. Wheezing and rhonchi present. No decreased breath sounds. Comments: Improving Musculoskeletal: General: No tenderness. Right lower leg: Edema (1+ pitting, improving) present. Left lower leg: Edema (1+ pitting, improving) present. Skin: General: Skin is warm. Coloration: Skin is not jaundiced. Neurological: Mental Status: She is alert. Data Labs personally reviewed: Lab Results Component Value Date GLUCOSE 315 (H) 10/28/2024 NA 142 10/28/2024 K 4.0 10/28/2024 CO2 27 10/28/2024 CL 107 10/28/2024 BUN 10 10/28/2024 CREATININE 0.71 10/28/2024 No results found for: WBC , RBC , HGB , HCT No results found for: AST , ALT , ALKPHOS , BILITOT Imaging Pertinent imaging personally reviewed CT Angio Pulmonary Embolism 10/25/2024 CLINICAL INDICATION: dyspnea COMPARISON: None. IMPRESSION: No pulmonary embolism. Airspace disease in the dependent portion of the right upper lobe and right lower lobe. Interstitial thickening in the posterior aspect of the bilateral upper lobes and lower lobes. CT Chest W IV Contrast 10/13/2024 CLINICAL INDICATION: Pneumonia, complication suspected COMPARISON: September 01, 2024 IMPRESSION: Right lower lobe nodular airspace disease concerning for infection. Slight decrease in size of medial right lower lobe pleural nodule Results Procedure Component Value Units Date/Time Blood Culture (Aerobic/Anaerobet Set) [[id number]] Collected: 10/26/24 0303 Order Status: Completed Specimen: Blood from Hand, Left Updated: 10/27/24 0502 Culture No growth at day 1 Blood Culture (Aerobic/Anaerobet Set) [[id number]] Collected: 10/25/24 2110 Order Status: Completed Specimen: Blood, Venous Updated: 10/26/24 2202 Culture No growth at day 1 Respiratory Culture and Gram Stain [[id number]] (Abnormal) Collected: 10/26/24 0537 Order Status: Completed Specimen: Sputum, Expectorated Updated: 10/26/24 1421 Culture Smear contains >=10 squamous epithelial cells per low power field, suggestive of poor quality. Culture not performed. A credit has been issued. Gram Stain Result Greater than 25 WBC/LPF Greater than 10 Epithelial cells/LPF Few Gram negative rods Rare Budding yeast Few Gram positive rods Rare Gram positive cocci in clusters Streptococcus pneumoniae and Legionella Urinary Antigen [[id number]] (Normal) Collected: 10/26/2437 Order Status: Completed Specimen: Urine, Clean Catch Updated: 10/26/24 0743 Legionella pneumophila serogroup 1 Antigen Result (Urine) Negative Streptococcus pneumoniae Antigen Result (Urine) Negative Methicillin Resistant Staphylococcus aureus (MRSA) by PCR [[id number]] (Normal) Collected: 10/25/24 1832 Order Status: Completed Specimen: Swab from Nares Updated: 10/25/24 2041 Methicillin Resistant Staphylococcus aureus (MRSA) by PCR Not Detected Nasopharyngeal Respiratory Panel [[id number]] (Normal) Collected: 10/25/24 1042 Order Status: Completed Specimen: Swab from Nasopharynx Updated: 10/25/24 1507 Nasopharyngeal Respiratory PCR Interpretation Not Detected for all analytes SARS CoV-2/COVID-19 by PCR - Rapid [[id number]] (Normal) Collected: 10/25/24 1042 Order Status: Completed Specimen: Swab from Nasopharynx Updated: 10/25/24 1213 SARS CoV-2/COVID-19 RNA PCR Result Not Detected Assessment/Plan Assessment & Plan Principal Problem: Pneumonia of right upper lobe due to infectious organism Teresa Urbina is a 63 y.o. female admitted for acute bacterial pneumonia. This condition poses an acute threat to life/bodily function. Continues to improve. Will anticipate 5d total of pip/tazo. Waiting on speciation from sputum if available. Plan to go to [facility] to finish radiation treatments. Patient amenable to going home to pack then returning to [facility]. #Acute on chronic hypoxic respiratory failure 2/2 bacterial pneumonia, likely hospital-acquired vs recurrent CAP - Recent hospitalization for neutropenic fever and sepsis 2/2 pneumonia and treated with cefepime - Imaging on CT PE with worsening features and consolidation c/f worsening pneumonia - Respiratory culture with few GNRs (poor specimen) Plan: - Continue piperacillin/tazobactam as scheduled for 5 days total for bacterial pneumonia - Will follow up blood and respiratory cultures and de-escalate; will send sputum for culture despite non-diagnostic quality - If clinical status worsens, then will consider pulmonary consult for further evaluation of infectious agent causing current condition - Will consider induced sputum culture if no culture data from sputum given c/f recurrent pneumonia - Will order guaifenesin, tessalon, DuoNebs PRN for symptomatic management #T2DM - Glucose 200 on BMP and persistently elevated - Last A1c 08/2024 6.3 Plan - Will order ACHS POCT, SSI, and hypoglycemia protocol - Will increase insulin glargine 20u sub-q nightly and add insulin lispro 7u TID WM - Will continue to monitor for s/sx of hypoglycemia - Will repeat A1c if indicated - Will place on diabetic diet - Will restart home anti-hyperglycemics as able #Anemia of likely chronic disease/inflammation - Baseline Hgb ~10 - Hgb 7.4 on admission - No overt signs of bleeding at this time - HDS Plan: - Will consent for blood and upload to chart - Will order intermittent CBC to monitor hemoglobin - Will monitor for s/sx of bleeding/anemia and intervene PRN - Will transfuse for hgb <7 #Sacral and inguinal rash - Will consult wound care #C/f vaginal candidiasis - Unclear if true Candidal infection, given lack of overt discharge, pain, or pruritus of the vagina Plan: - Continue miconazole cream daily for inguinal folds and labial folds Chronic medical conditions #HTN: will hold home carvedilol for low-normotension #Chronic pain: resume home gabapentin #COPD: resume home inhalers, schedule albuterol neb q12h #Mood: resume home fluoxetine and PRN hydroxyzine #HLD: resume home statin #Obesity, class III (BMI 41): complicates all aspects of care #A-fib: continue home rivaroxaban and metoprolol succinate, keep electrolytes K+ >4, Mg2+ >2;will give spot metoprolol tartrate PRN RVR #Metastatic small-cell lung cancer with brain metastasis s/p craniotomy on palliative chemo/radiation: continue dexamethasone 2mg q12h per medical oncology recommendations, continue radiation treatment as scheduled Care today included: HIGHRISK: Discussion of management/test with another provider: medical oncology Patient's history, interview/physical exam and above plan were discussed with attending physician. Stefano Moon MD Internal Medicine, PGY-1 Attending: Dr. Amin Cosigned by Robert Amin MD at 10/29/2024 1:21 PM EDT Associated attestation - Robert Amin MD - 10/29/2024 1:21 PM EDT I saw and evaluated the patient with the resident/fellow. I discussed the case with the resident/fellow and agree with the findings and plan as documented. * Care Plan - Flor Pierre RN - 10/28/2024 8:22 AM EDT Problem: Adult Inpatient Plan of Care Goal: Plan of Care Review Outcome: Ongoing, Progressing Goal: Patient-Specific Goal (Individualized) Outcome: Ongoing, Progressing Goal: Absence of Hospital-Acquired Illness or Injury Outcome: Ongoing, Progressing Goal: Optimal Comfort and Wellbeing Outcome: Ongoing, Progressing Goal: Readiness for Transition of Care Outcome: Ongoing, Progressing Problem: Mobility Impairment Goal: Optimal Mobility Outcome: Ongoing, Progressing * Care Plan - Abida Ken - 10/28/2024 1:04 AM EDT Problem: Adult Inpatient Plan of Care Goal: Plan of Care Review Outcome: Ongoing, Progressing Goal: Patient-Specific Goal (Individualized) Outcome: Ongoing, Progressing Goal: Absence of Hospital-Acquired Illness or Injury Outcome: Ongoing, Progressing Goal: Optimal Comfort and Wellbeing Outcome: Ongoing, Progressing Goal: Readiness for Transition of Care Outcome: Ongoing, Progressing Problem: Mobility Impairment Goal: Optimal Mobility Outcome: Ongoing, Progressing * Progress Notes - Genia Grissom - 10/27/2024 3:18 PM EDT Case Management Adult Progress Note Teresa Urbina 63 y.o. female CSN: [id number] Admission: 10/25/2024 10:03 AM Primary Problem: Pneumonia of right upper lobe due to infectious organism Anticipated Discharge Date: 72 hours Additional Comments: SW spoke with MDs this date re: pt's plan of care. According to MDs, this pt is not medically stable for DC this date and is not anticipated to be stable within 72 hrs. No accepting HH agencies rightnow as pt was recommended HH PT/OT. MD's will need to provide pt with outpatient script for PT/OT. No further SW concerns identified at this time. SW will monitor pt's progress and will follow up with DC planning and needs as appropriate. Genia Grissom, FLAGMAN, CHIPS SCREEN TENDER Social Work Senior Department of Case Management [facility] * Progress Notes - Chalo Thomason - 10/27/2024 2:56 PM EDT Images from the original note were not included. New consult for rash in groin/ abdomen folds. Assessment found abdomen and groin folds and perinealarea clear of any erythema. No indication of fungal irritation in these areas. Inner buttocks/ cleft with continuous dark red erythema consistent with a healing fungal irritation. Plan: Rosas cleft/ inner buttocks : wash/ dry area daily/ apply anti fungal ointment BID. Inner buttocks (feet to right) * Progress Notes - Darren Moon MD - 10/27/2024 7:06 AM EDT Images from the original note were not included. Hospital Medicine Progress Note Subjective Subjective/Night Patient examined at bedside. States her breathing continues to improve. Weakness also improving andstates this is the best she has felt in a while. Asking about getting a shower today. Still endorses genital/groin discomfort. States the genital discomfort is near her anus and outer genitalia. No burning, itching, or discharge within the vagina. States she likes using the incentive spirometer. Does not feel ready for discharge for a couple of days. Denies chest pain, fever, chills. Discussed with oncology nurse navigator who inquired about potential discharge date. Objective Objective Last Recorded Vitals Blood pressure 128/56, pulse 70, temperature 36.8 ??C (98.2 ??F), temperature source Oral, resp. rate 18, weight 119 kg (262 lb 5.6 oz), SpO2 92%. Physical Exam Constitutional: General: She is not in acute distress. Appearance: She is not toxic-appearing. Cardiovascular: Rate and Rhythm: Normal rate. Rhythm irregular. Heart sounds: No murmur heard. Pulmonary: Effort: Pulmonary effort is normal. No tachypnea, accessory muscle usage, prolonged expiration, respiratory distress or retractions. Breath sounds: No decreased air movement or transmitted upper airway sounds. Examination of the right-upper field reveals wheezing. Examination of the left- upper field reveals wheezing. Examination of the right-middle field reveals wheezing and rhonchi. Examination of the left-middle field reveals wheezing and rhonchi. Examination of the right-lower field reveals wheezing and rhonchi. Examinationof the left-lower field reveals wheezing and rhonchi. Wheezing and rhonchi present. No decreased breath sounds. Comments: Improving Musculoskeletal: General: No tenderness. Right lower leg: Edema (1+ pitting, improving) present. Left lower leg: Edema (1+ pitting, improving) present. Skin: General: Skin is warm. Coloration: Skin is not jaundiced. Neurological: Mental Status: She is alert. Data Labs personally reviewed: Lab Results Component Value Date GLUCOSE 226 (H) 10/27/2024 NA 141 10/27/2024 K 4.5 10/27/2024 CO2 29 10/27/2024 CL 104 10/27/2024 BUN 7 (L) 10/27/2024 CREATININE 0.70 10/27/2024 Lab Results Component Value Date WBC 4.25 10/27/2024 RBC 2.37 (L) 10/27/2024 HGB 7.0 (L) 10/27/2024 HCT 23.0 (L) 10/27/2024 Lab Results Component Value Date AST 22 10/27/2024 ALT 28 10/27/2024 ALKPHOS 95 10/27/2024 BILITOT 0.5 10/27/2024 Imaging Pertinent imaging personally reviewed CT Angio Pulmonary Embolism 10/25/2024 CLINICAL INDICATION: dyspnea COMPARISON: None. IMPRESSION: No pulmonary embolism. Airspace disease in the dependent portion of the right upper lobe and right lower lobe. Interstitial thickening in the posterior aspect of the bilateral upper lobes and lower lobes. CT Chest W IV Contrast 10/13/2024 CLINICAL INDICATION: Pneumonia, complication suspected COMPARISON: September 01, 2024 IMPRESSION: Right lower lobe nodular airspace disease concerning for infection. Slight decrease in size of medial right lower lobe pleural nodule Results Procedure Component Value Units Date/Time Blood Culture (Aerobic/Anaerobet Set) [[id number]] Collected: 10/26/24 0303 Order Status: Completed Specimen: Blood from Hand, Left Updated: 10/27/24 0502 Culture No growth at day 1 Blood Culture (Aerobic/Anaerobet Set) [[id number]] Collected: 10/25/24 2110 Order Status: Completed Specimen: Blood, Venous Updated: 10/26/24 2202 Culture No growth at day 1 Respiratory Culture and Gram Stain [[id number]] (Abnormal) Collected: 10/26/24 0537 Order Status: Completed Specimen: Sputum, Expectorated Updated: 10/26/24 1421 Culture Smear contains >=10 squamous epithelial cells per low power field, suggestive of poor quality. Culture not performed. A credit has been issued. Gram Stain Result Greater than 25 WBC/LPF Greater than 10 Epithelial cells/LPF Few Gram negative rods Rare Budding yeast Few Gram positive rods Rare Gram positive cocci in clusters Streptococcus pneumoniae and Legionella Urinary Antigen [[id number]] (Normal) Collected: 10/26/24 0537 Order Status: Completed Specimen: Urine, Clean Catch Updated: 10/26/24 0743 Legionella pneumophila serogroup 1 Antigen Result (Urine) Negative Streptococcus pneumoniae Antigen Result (Urine) Negative Methicillin Resistant Staphylococcus aureus (MRSA) by PCR [[id number]] (Normal) Collected: 10/25/24 1832 Order Status: Completed Specimen: Swab from Nares Updated: 10/25/24 2041 Methicillin Resistant Staphylococcus aureus (MRSA) by PCR Not Detected Nasopharyngeal Respiratory Panel [[id number]] (Normal) Collected: 10/25/24 1042 Order Status: Completed Specimen: Swab from Nasopharynx Updated: 10/25/24 1507 Nasopharyngeal Respiratory PCR Interpretation Not Detected for all analytes SARS CoV-2/COVID-19 by PCR - Rapid [[id number]] (Normal) Collected: 10/25/24 104 Order Status: Completed Specimen: Swab from Nasopharynx Updated: 10/25/24 1213 SARS CoV-2/COVID-19 RNA PCR Result Not Detected Assessment/Plan Assessment & Plan Principal Problem: Pneumonia of right upper lobe due to infectious organism Teresa Urbina is a 63 y.o. female admitted for acute bacterial pneumonia. This condition poses an acute threat to life/bodily function. Continues to improve. Will anticipate 5d total of pip/tazo. Unsure if anaerobic coverage needed, but given recent antibiotic therapy and worsening pneumonia, will continue given improvement. Likely incentive spirometer helping with lung function. Sputum culture nondiagnostic, but will send for culture to elucidate GNRs noted. Suspect true pathogen given symptoms. Blood glucose trending upward likely due to steroids. Will anticipate to increase basal-bolus regimen. #Acute on chronic hypoxic respiratory failure 2/2 bacterial pneumonia, likely hospital-acquired vs recurrent CAP - Recent hospitalization for neutropenic fever and sepsis 2/2 pneumonia and treated with cefepime - Imaging on CT PE with worsening features and consolidation c/f worsening pneumonia - Respiratory culture with few GNRs (poor specimen) Plan: - Continue piperacillin/tazobactam as scheduled for 5 days total for bacterial pneumonia - Will follow up blood and respiratory cultures and de-escalate; will send sputum for culture despite non-diagnostic quality - If clinical status worsens, then will consider pulmonary consult for further evaluation of infectious agent causing current condition - Will consider induced sputum culture if no culture data from sputum given c/f recurrent pneumonia - Will order guaifenesin, tessalon, DuoNebs PRN for symptomatic management #T2DM - Glucose 200 on BMP and persistently elevated - Last A1c 08/2024 6.3 Plan - Will order ACHS POCT, SSI, and hypoglycemia protocol - Will increase insulin glargine 15u sub-q nightly and add insulin lispro 5u TID WM - Will continue to monitor for s/sx of hypoglycemia - Will repeat A1c if indicated - Will place on diabetic diet - Will restart home anti-hyperglycemics as able #Anemia of likely chronic disease/inflammation - Baseline Hgb ~10 - Hgb 7.4 on admission - No overt signs of bleeding at this time - HDS Plan: - Will consent for blood and upload to chart - Will order intermittent CBC to monitor hemoglobin - Will monitor for s/sx of bleeding/anemia and intervene PRN - Will transfuse for hgb <7 #Sacral and inguinal rash - Will consult wound care #C/f vaginal candidiasis - Unclear if true Candidal infection, given lack of overt discharge, pain, or pruritus of the vagina Plan: - Continue miconazole cream daily for inguinal folds and labial folds Chronic medical conditions #HTN: will hold home carvedilol for low-normotension #Chronic pain: resume home gabapentin #COPD: resume home inhalers, schedule albuterol neb q12h #Mood: resume home fluoxetine and PRN hydroxyzine #HLD: resume home statin #Obesity, class III (BMI 41): complicates all aspects of care #A-fib: continue home rivaroxaban and metoprolol succinate, keep electrolytes K+ >4, Mg2+ >2;will give spot metoprolol tartrate PRN RVR #Metastatic small-cell lung cancer with brain metastasis s/p craniotomy on palliative chemo/radiation: continue dexamethasone 2mg q12h per medical oncology recommendations, continue radiation treatment as scheduled Care today included: HIGHRISK: Discussion of management/test with another provider: medical oncology Patient's history, interview/physical exam and above plan were discussed with attending physician. Stefano Moon MD Internal Medicine, PGY-1 Attending: Dr. Amin Cosigned by Robert Amin MD at 10/29/2024 1:13 PM EDT Associated attestation - Robert Amin MD - 10/29/2024 1:13 PM EDT I saw and evaluated the patient with the resident/fellow. I discussed the case with the resident/fellow and agree with the findings and plan as documented. * Care Plan - Zhane Veliz RN - 10/27/2024 5:20 AM EDT Problem: Adult Inpatient Plan of Care Goal: Plan of Care Review Outcome: Ongoing, Progressing Goal: Absence of Hospital-Acquired Illness or Injury Outcome: Ongoing, Progressing * Progress Notes - Genia Grissom - 10/26/2024 3:20 PM EDT Case Management Adult Initial Progress Note Teresa Urbina 63 y.o. female CSN: [id number] Admission: 10/25/2024 10:03 AM Primary Problem: Pneumonia of right upper lobe due to infectious organism Admissions Gate Attendant reviewed chart and spoke with the patient at bedside to complete this Initial Case Management Assessment. PCP: Laurie Gutierrez MD Emergency Contact: Extended Emergency Contact Information Primary Emergency Contact: NicoleZachary Mobile Relation: Son Preferred language: Danish Feed Weigher needed? No Secondary Emergency Contact: NicoleAurora Mobile Relation: Daughter Preferred language: Danish Feed Weigher needed? No Insurance: Primary Visit Coverage Payer Plan Sponsor Code Group Number Group Name [employer] [id number] Primary Visit Coverage Subscriber Subscriber ID Subscriber Name Subscriber SSN Subscriber Address [id number] TERESA URBINA [id number] [address] [place] [address] Patient information: Primary Caregiver: Self Support System: Immediate family Daily Living Activities: Functional Status: Minimum assistance Living Arrangements: Alone Type of Residence: Private residence, Single Level (4 stairs to enter the front room, 3 stairs to enter the side door, and 2 stairs to enter the back porch) [address] [facility] [address] Smoker in the Home?: N/A Current DME: Equipment Currently Used at Home: walker, rolling, oxygen (2L of O2 at home) Current DME Provider: Bruno Income Information: Income Source: Unemployed (recieves husbands social security) Current Resources Utilized: Food [place] Housing Circumstances-Z Codes: Housing Circumstances (select all that apply): Low Income (101-300% Federal Poverty Guidlines) - Z596 Anticipated Discharge Date: 72 hours Patient's Discharge Goal: Home Assistance Available at Discharge: Family Discharge Transport: Family Follow Up Transport: Family Home Health / Home Infusion / Outpatient Dialysis Services: Current DME Provider: Bruno Living Will/Advance Directive/Power of Pastry Finisher /Guardian: Pt states that Zachary is her POA. Social Drivers of Health Food Insecurity: Food Insecurity Present (10/26/2024) Hunger Vital Sign Worried About Running Out of Food in the Last Year: Sometimes true Ran Out of Food in the Last Year: Sometimes true Alcohol Use: Low Risk (11/19/2023) CAGE ASSESSMENT Cage unable to access: Not on file Cage max number of drinks: Not on file Cage Beverages a week: Not on file Cage Questionnaire cut down: 0 Cage questionnaire annoyed: 0 Cage questionnaire guilty: 0 Cage questionnaire eye cost accounting manager: 0 Cage Overall score: 0 Housing Stability: Low Risk (10/26/2024) Housing Stability Vital Sign Unable to Pay for Housing in the Last Year: No Number of Times Moved in the Last Year: 0 Homeless in the Last Year: No Tobacco Use: Medium Risk (10/06/2024) Patient History Smoking Tobacco Use: Former Smokeless Tobacco Use: Never Passive Exposure: Not on file Transportation Needs: No Transportation Needs (10/26/2024) PRAPARE - Transportation Lack of Transportation (Medical): No Lack of Transportation (Non-Medical): No Depression: Not at risk (08/31/2024) PHQ-2 PHQ-2 Score: 0 Utilities: Not At Risk (10/26/2024) Utilities Threatened with loss of utilities: No Stress: Not on file Intimate Partner Violence: Not At Risk (10/26/2024) Humiliation, Afraid, Rape, and Kick questionnaire Fear of Current or Ex-Partner: No Emotionally Abused: No Physically Abused: No Sexually Abused: No Physical Activity: Not on file Social Connections: Low Risk (05/26/2023) Received from [facility] Family and Community Support Help with Day to Day Activities: Not on file Feeling Lonely or Isolated: Not on file Financial Resource Strain: Medium Risk (10/26/2024) Overall Financial Resource Strain (CARDIA) Difficulty of Paying Living Expenses: Somewhat hard Additional Comments: SW spoke with MDs this date re: pt's plan of care. According to MDs, this pt is not medically stable for DC this date but may be stable within 72 hrs. Pt lives alone at [address] [facility] [id number]. The home is one level with 4 stairs to enter the front room, 3 stairs to enter the side door, and 2 stairs to enter the back porch. Pt requires minimum assistance performing ADLS at home, states her sister watches her shower so she does not fall. Pt states she uses a RW and 2L ofO2 at home through [employer]. Pt POA is Zachary Urbina, son but no papers on file. Pt states she has assistance from her family upon DC if needed. Pt confirmed her PCP in chart. Pt states her family will provide her with transportation upon DC. Pt was act [facility] for rehab in September. Pt meets FPG 300%. Pt preferred pharmacy is [facility]. No further SW concerns identified at this time. SW will monitor pt's progress and will follow up with DC planning and needs as appropriate. Genia Grissom, FLAGMAN, CHIPS SCREEN TENDER Social Work Senior Department of Case Management [facility] * Hospital Course - Felipe Sanchez MD - 10/26/2024 3:09 PM EDT Teresa Urbina is a 63 y.o. female with a PMH of small-cell lung cancer with brain metastasis s/p craniotomy for metastatic resection on palliative chemo/radiation, COPD on 2L oxygen, and recent hospitalization for neutropenic fever and pneumonia who presents with weakness, shortness of breath with increasing oxygen requirements admitted for acute on chronic hypoxic respiratory failure 2/2 likelybacterial pneumonia. #Acute on chronic hypoxic respiratory failure 2/2 bacterial pneumonia, likely hospital-acquired vs recurrent CAP - Recent hospitalization for neutropenic fever and sepsis 2/2 pneumonia and treated with cefepime - Imaging on CT PE with worsening features and consolidation c/f worsening pneumonia - Completed 5 days of piperacillin/tazobactam - Sputum culture with Pseudomonas aeruginosa with susceptibilities of piperacillin/tazobactam - Improved daily on piperacillin/tazobactam and completed a 7 day course with complete resolution of respiratory symptoms #T2DM c/b peripheral neuropathy - Glucose 200 on BMP - Last A1c 08/2024 6.3 - Resumed home basal/bolus regimen #Anemia of likely chronic disease/inflammation - Baseline Hgb ~10 - Hgb 7.4 on admission - No overt signs of bleeding at this time - HDS, required no intervention #Sacral and inguinal rash - Will consult wound care with discharge recommendations of daily miconazole cream for inguinal andlabial folds Chronic medical conditions #A-fib: continued home rivaroxaban and metoprolol succinate, electrolytes K+ >4, Mg2+ >2 #Metastatic small-cell lung cancer with brain metastasis s/p craniotomy on palliative chemo/radiation: continued dexamethasone 2mg q12h per medical oncology recommendations, continue radiation treatment as scheduled * Progress Notes - Chalo Thomason - 10/26/2024 2:13 PM EDT New consult for rash in skin folds. Attempted to see patient and she was off floor for a treatment.RN stated patient with solid red erythema in folds consistent with a fungal irritation. Ordered anti fungal ointment. We will attempt another visit at earliest possible time. * Procedures - Dayana River RN - 10/26/2024 12:46 PM EDTAssociated Order(s): Insert peripheral IV Insert peripheral IV Performed by: Dayana River RN Authorized by: Robert Amin MD Hand hygiene: Hand hygiene performed prior to insertion Inserted using aseptic techniques: Yes Preparation: Skin prepped with chg Orientation: Left Location: Forearm Catheter placed: Peripheral IV Catheter size: 20g/2.00in Line Technique: Ultrasound Guidance Number of attempts: 1 IV flushes: Without difficulty and positive blood return noted and IV luer locked Patient tolerance: Patient tolerated the procedure well, age appropriate response and there were nocomplications IV site covered with: Transparent semipermeable dressing Education provided to: Patient * Consults - Page Cantu DO - 10/26/2024 11:50 AM EDTAssociated Order(s): IP CONSULT TO ONCOLOGY Medical Oncology Consult Note Date: 10/26/24 Reason for Consult: Dexamethasone Recommendations in setting of known SCLC with Brain Metastases Primary Service: Hospital Medicine History of Present Illness Teresa Urbina is a 63 y.o. female with history of COPD and SCLC with brain metastases currently receiving palliative chemotherapy and radiation. Following a recent inpatient stay for sepsis with febrile severe neutropenia, she was discharged 10/18/24 after antibiotic course. She then re-presented [facility] 10/25/24 for worsening shortness of air, and is now receiving treatment for likely hospital acquired pneumonia. For her SCLC, she follows outpatient with Dr. Dunne. She has history of brain metastases, and in August was found to have vasogenic edema and subdural hematoma. She is s/p left frontal craniotomy for metastasis resection 08/2024 with neurosurgery. Now she is receiving whole brain radiation. Currentlytaking steroids for brain edema. Is also receiving chemotherapy outpatient treatment with carbo/etop/atexo, underwent C1 10/04-09/16. Oncology History [Associated problem not found] Oncology History Extensive stage primary small cell carcinoma of lung 09/09/2024 Initial Diagnosis Extensive stage primary small cell carcinoma of lung 10/04/2024 - Chemotherapy pegfilgrastim (Neulasta) 6 MG/0.6ML on-body injector 6 mg, 6 mg, Subcutaneous, Once, 0 of 3 cycles Ryzbqxgltpcn-Vfhxzojgdautz-qynf (Tecentriq Hybreza) [id number] MG-UT/15ML injection solution 1,875 mg, 1,875 mg, [...] is the current list of radiation treatment: SBRT: Midline Brain Treatment Period Fraction Dose Fractions Total Dose Course C1 10/24/2024-10/25/2024 (days elapsed: 1) Plans Planned Brain WBRT_PTV [[id number]] 10/24/2024-10/25/2024 300 cGy 3,000 cGy Reference Points Delivered Brain WBRT 10/24/2024-10/25/2024 -- -- 600 cGy Review of Systems ROS Negative x14 systems except as above Past Medical History Past Medical History[1] Past Surgical History Surgical History[2] Family History Family History[3] 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 Patient lives in [place] with Tobacco Use History[4] 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 Substance and Sexual Activity Alcohol Use No 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 Substance and Sexual Activity Drug Use Never Allergies Allergies[5] Medications Current Medications[6] Physical Exam Visit Vitals BP 113/68 Pulse 93 Temp 36.9 ??C (98.4 ??F) (Oral) Resp 26 Gen: NAD. Comfortable. HEENT: NC/AT. EOMI. Sclera non-icteric. No pharyngeal erythema. No oral lesions Neck: Trachea midline. No thyromegaly CV: RRR. Pulm: Normal work of breathing on 3 L NC O2. No use of accessory muscles. Abd: Soft, non-tender, non-distended, no organomegaly Musc: No joint swelling or erythema. Skin: No rash or ulceration. Normal turgor Neuro: AAOx3. No focal deficits. No tremor Psych: Mood and affect appropriate for setting Lab Findings Lab Results Component Value Date WBC 5.26 10/26/2024 HGB 7.0 (L) 10/26/2024 HCT 22.0 (L) 10/26/2024 MCV 97 10/26/2024 PLT 184 10/26/2024 Lab Results Component Value Date GLUCOSE 175 (H) 10/26/2024 CALCIUM 8.1 (L) 10/26/2024 NA 140 10/26/2024 K 3.6 10/26/2024 CO2 29 10/26/2024 CL 100 10/26/2024 BUN 9 10/26/2024 CREATININE 0.88 10/26/2024 Lab Results Component Value Date ALT 24 10/26/2024 AST 21 10/26/2024 ALKPHOS 90 10/26/2024 BILITOT 0.6 10/26/2024 Imaging === 10/25/24 === CT ANGIO PULMONARY EMBOLISM - Narrative - CLINICAL INDICATION: dyspnea TECHNIQUE: Imaging of the chest was performed from thoracic inlet through upper abdomen, using spiral technique, following administration of IV contrast, Omnipaque 350, 100 mL per the pulmonary angiogram protocol. In addition, 3D images were created and reviewed. TOTAL DLP (Dose-Length Product): 614.87 mGy.cm. Please note: The reported value represents the total of one or more individual components during the CT acquisition on this date and at this time, and as such, the same value may appear in more than one CT report depending on the interpreting/reporting physicians. COMPARISON: None. FINDINGS: Pulmonary Arteries/Vessels: No pulmonary embolism. Right Heart Strain: No evidence of right heart strain. Pleural/Pericardial space: No pneumothorax. No pleural effusions. No pericardial effusion. Lymph Nodes: No lymphadenopathy within the chest. Lungs: There is sulcal opacification in the posterior aspect of the right upper lobe. There is mildinterstitial thickening in the bilateral dependent lung bases. There is more focal nodular opacification seen in the dependent portion of the right lower lobe suggestive of airspace disease. Mediastinum: The heart size is within normal limits. There is calcified atherosclerotic disease of the coronary arteries Chest wall: No chest wall hematoma or contusion. Bones: No acute fracture within the chest. Upper Abdomen: Cysts are seen in the bilateral upper poles of the kidneys right side greater than left. These are not optimally evaluated on this exam without IV contrast and without inclusion of thelower portion of the abdomen. - Impression - No pulmonary embolism. Airspace disease in the dependent portion of the right upper lobe and right lower lobe. Interstitial thickening in the posterior aspect of the bilateral upper lobes and lower lobes. CRITICAL RESULT: No. COMMUNICATION: Per this written report. Drafted by Ashia Murray MD on 10/25/2024 12:43 PM Final report signed by Ashia Murray MD on 10/25/2024 12:50 PM Assessment and Plan Ms. Teresa Urbina is a 63 yo F with history of small-cell lung cancer with brain metastasis s/p craniotomy for metastatic resection on palliative chemo/radiation who presents to the hospital for worsening shortness of air now being treated for acute hypoxic respiratory failure s/s healthcare acquired pneumonia. Medical oncology consulted for dexamethasone recommendations. #Small Cell Lung Cancer w/Brain Metastases - Discussed with Ms. Urbina today during patient encounter that we would continue to hold all chemotherapy while she is undergoing treatment for pneumonia. Advised that she could follow up outpatient following discharge from the hospital with primary oncologist Dr. Dunne. She expressed to us that her goal is to leave the hospital and go home. - She is currently taking steroids for brain metastases. Advised her that we would continue these at current dose for now and taper if needed at later date. Recommendations: - Hold all chemotherapy while patient is hospitalized and undergoing treatment for active infection - Continue steroids at current dose (dexamethasone 2 mg q12 hours) Thank you for the consult. Medical oncology will continue to follow. Recommendations were communicated to the primary service. Please call with additional questions or concerns. Patient was seen and examined with attending physician, Dr. Wright, who assisted with formulation ofthe plan as described. Page Cantu, Internal Medicine, PGY-3 [1] Past Medical History: Diagnosis Date Brain tumor (CMS/HCC) Chemotherapy-induced nausea and vomiting 08/28/2023 Personal history of other diseases of the circulatory system History of essential hypertension Personal history of other diseases of the musculoskeletal system and connective tissue History of osteoarthritis Personal history of other endocrine, nutritional and metabolic disease History of type 2 diabetes mellitus [2] Past Surgical History: Procedure Laterality Date BRAIN SURGERY TUBAL LIGATION N/A Tubal Ligation from [facility] TYMPANOSTOMY TUBE PLACEMENT N/A Ear Surgery Eustachian Tube from [facility] [3] Family History Problem Relation Name Age of Onset No Known Problems Mother No Known Problems Father Diabetes Other Fibromyalgia Other [4] 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 Tobacco Use Smoking Status Former Current packs/day: 0.00 Average packs/day: 1.5 packs/day for 48.4 years (72.6 ttl pk-yrs) Types: Cigarettes Start date: 1975 Quit date: 10/17/2023 Years since quittin.0 Smokeless Tobacco Never [5] Allergies Allergen Reactions Cephalexin Other - please document in the comment field Patient states makes her feel tired Lisinopril Cough and Other - please document in the comment field Meloxicam Cough and Other - please document in the comment field [6] Current Facility-Administered Medications: acetaminophen (Tylenol) tablet 650 mg, 650 mg, Oral, q8h [facility], Sasha Nuñez DO, 650 mg at 10/26/24 0559 albuterol (Proventil) (2.5 MG/3ML) 0.083% nebulizer solution 2.5 mg, 2.5 mg, Nebulization, q12h, Darren Moon MD, 2.5 mg at 10/26/24 0826 atorvastatin (Lipitor) tablet 40 mg, 40 mg, Oral, Daily, Sasha Nuñez DO, 40 mg at 10/26/24 0821 azithromycin (Zithromax) tablet 500 mg, 500 mg, Oral, Daily, Sasha Nuñez DO, 500 mg at 10/26/24 0821 benzonatate (Tessalon) capsule 100 mg, 100 mg, Oral, TID PRN, Sasha Nuñez DO calcium carbonate (Tums) chewable tablet 500 mg, 500 mg, Oral, 4x daily PRN, Darren Moon MD calcium-vitamin D 500-200 MG-UNIT per tablet 1 tablet, 1 tablet, Oral, Daily, Sasha Nuñez, DO, 1 tablet at 10/26/24 08 cetirizine (ZyrTEC) tablet 10 mg, 10 mg, Oral, Daily, Sasha Nuñez, DO, 10 mg at 10/26/24 08 glucose (Glutose) 40 % oral gel 15-30 grams of glucose, 15-30 grams of glucose, Sublingual, q15 minPRN OR dextrose 50 % solution 12.5-25 g, 12.5-25 g, Intravenous, q15 min PRN OR glucagon (human recombinant) injection 1 mg, 1 mg, Intramuscular, q15 min PRN, Sasha Nuñez DO FLUoxetine (PROzac) capsule 40 mg, 40 mg, Oral, Daily, Sasha Nuñez DO, 40 mg at 10/26/24 08 gabapentin (Neurontin) capsule 600 mg, 600 mg, Oral, 4x daily, Darren Moon MD, 600 mg at 10/26/24 0821 guaiFENesin (Mucinex) 12 hr tablet 600 mg, 600 mg, Oral, BID PRN, Sasha Nuñez DO hydrOXYzine HCl (Atarax) tablet 25 mg, 25 mg, Oral, q8h PRN, Sasha Nuñez DO insulin glargine-yfgn 100 UNIT/ML injection 10 Units, 10 Units, Subcutaneous, Nightly, Sasha Nuñez DO, 10 Units at 10/25/243 insulin lispro (Admelog) 100 units/mL injection - Correction - Resistant Dose, 0-10 Units, Subcutaneous, TID with meals, Sasha Nuñez DO insulin lispro (Admelog) injection - Correction - Nighttime Dose, 0-3 Units, Subcutaneous, Twice atnight, Sasha Nuñez G, DO loperamide (Imodium A-D) tablet 2 mg, 2 mg, Oral, 4x daily PRN, Sasha Nuñez, DO magic mouthwash BLM (FIRST-Mouthwash) suspension 15 mL, 15 mL, Swish & Spit, Before meals &nightly, Sasha Nuñez G, DO, 15 mL at 10/26/24 0820 magnesium oxide (Mag-Ox) tablet 400 mg, 400 mg, Oral, BID, Sasha Nuñez, DO, 400 mg at 10/26/24 0821 magnesium sulfate IVPB 2 g, 2 g, Intravenous, Once, Darren Moon MD melatonin tablet 3 mg, 3 mg, Oral, Nightly PRN, Sasha Nuñez, DO Tiotropium [place] Monohydrate (Spiriva Respimat) 2.5 MCG/ACT inhaler 2 puff, 2 puff, Inhalation, Daily, 2 puff at 10/26/24 0820 AND mometasone-formoterol (Dulera 100) 100-5 MCG/ACT inhaler 2 puff, 2 puff, Inhalation, BID, Sasha Nuñez, DO, 2 puff at 10/26/24 0820 montelukast (Singulair) tablet 10 mg, 10 mg, Oral, Nightly, Sasha Nuñez, DO, 10 mg at 10/25/24 2101 nystatin (Mycostatin) [id number] UNIT/ML suspension 500,000 Units, 5 mL, Swish & Swallow, 4x daily,Sasha Nuñez, DO, 500,000 Units at 10/26/24 0821 ondansetron ODT (Zofran-ODT) disintegrating tablet 4 mg, 4 mg, Oral, q6h PRN OR ondansetron (Zofran) injection 4 mg, 4 mg, Intravenous, q6h PRN OR ondansetron (Zofran) 4 MG/5ML solution 4 mg,4 mg, Oral, q6h PRN, Sasha Nuñez, pantoprazole (Protonix) EC tablet 40 mg, 40 mg, Oral, Daily, Sasha Nuñez DO, 40 mg at 10/26/24 0821 piperacillin-tazobactam (Zosyn) 4.5 g in sodium chloride 0.9% 100 mL IVPB (vial adapter required), 4.5 g, Intravenous, q6h, Sasha Nuñez DO, Stopped at 10/26/24 0826 rivaroxaban (Xarelto) tablet 20 mg, 20 mg, Oral, q PM, Sasha Nuñez DO, 20 mg at 10/25/24 1646 rOPINIRole (Requip) tablet 1 mg, 1 mg, Oral, BID, Darren Moon MD, 1 mg at 10/26/24 0821 Insert peripheral IV, , , Once AND Saline lock IV, , , Once AND sodium chloride 0.9 % flush10 mL, 10 mL, Intravenous, q12h, 10 mL at 10/25/24 1648 AND sodium chloride 0.9 % flush 10 mL, 10 mL, Intravenous, PRN, Sasha Nuñez, DO Current Outpatient Medications: Accu-Chek Softclix Lancets lancets, USE TO TEST BLOOD SUGAR 3 TIMES EACH DAY, Disp: , Rfl: Alcohol Swabs (Easy Touch Alcohol Prep Medium) 70 % pads, , Disp: , Rfl: atorvastatin (Lipitor) 40 MG tablet, Take 1 tablet by mouth daily., Disp: , Rfl: B-D UF III MINI PEN NEEDLES 31G X 5 MM [facility] [place], , Disp: , Rfl: benzonatate (Tessalon) 100 MG capsule, Take 1 capsule by mouth 3 times a day as needed for cough. Do not crush or chew., Disp: 20 capsule, Rfl: 0 Blood Glucose Monitoring Suppl (orderbird [employer] Verio Flex System) w/Device kit, , Disp: , Rfl: Aavcwgb-Cqetwrnbtuj-Qdtxgxssbp (Breztri Aerosphere) 160-9-4.8 MCG/ACT aerosol, Inhale 2 puffs 2 (two) times a day., Disp: , Rfl: Calcium Carb-Cholecalciferol 600-10 MG-MCG tablet, Take 600 mg by mouth daily., Disp: , Rfl: calcium carbonate (Tums) 500 MG chewable tablet, Chew 1 tablet 4 times a day as needed for indigestion or heartburn., Disp: , Rfl: cetirizine (ZyrTEC) 10 MG tablet, Take 1 tablet by mouth daily., Disp: , Rfl: ciclopirox (Penlac) 8 % solution, Apply over affected nail fold daily., Disp: , Rfl: Continuous Glucose Douper (Dexcom G7 Douper) device, USE TO MEASURE BLOOD SUGAR DIRECTED, Disp: , Rfl: Continuous Glucose Sensor (Dexcom G6 Sensor) misc, USE DIRECTED TO MEASURE BLOOD SUGAR. REPLACE [...] Can be adjusted per the MD at [facility], Disp: 10 mL, Rfl: 12 Lantus SoloStar 100 UNIT/ML injection pen, Inject under the skin 2 times a day., Disp: , Rfl: lidocaine (Xylocaine) 2 % solution, Take 5 mL by mouth as needed for mild pain., Disp: , Rfl: magic mouthwash BLM (FIRST-Mouthwash) suspension, Swish and spit 15 mL 4 times a day before meals and nightly for 3 days., Disp: 180 mL, Rfl: 0 magnesium oxide (Mag-Ox) 400 MG tablet, Take 1 tablet by mouth 2 times a day. Hold for diarrhea, Disp: 60 tablet, Rfl: 1 melatonin tablet, Take 2 tablets by mouth nightly., Disp: , Rfl: metFORMIN (Glucophage) 1000 MG tablet, Take 1 tablet by mouth 2 times a day with meals., Disp: , Rfl: metoprolol succinate XL (Toprol-XL) 25 MG 24 hr tablet, Take 2 tablets by mouth daily. Do not crushor chew., Disp: 60 tablet, Rfl: 11 montelukast (Singulair) 10 MG tablet, Take 1 tablet by mouth nightly., Disp: , Rfl: nystatin (Mycostatin) 488245 UNIT/ML suspension, Swish and swallow 5 mL [...] by mouth every evening., Disp: , Rfl: Cosigned by Radha Wright MD at 10/26/2024 12:49 PM EDT Associated attestation - Radha Wright MD - 10/26/2024 12:49 PM EDT I saw and evaluated the patient with the resident/fellow. I discussed the case with the resident/fellow and agree with the findings and plan as documented. * Progress Notes - Pepper Evans PharmD - 10/26/2024 10:53 AM EDT Pharmacokinetic Consult - Therapeutic Drug Monitoring HPI and Hospital Course: Teresa Urbina is a 63 y.o. female presenting with SOA. Vancomycin therapy has been stopped due to patient-specific cultures. Vancomycin therapy is no longer indicated. Pharmacist will sign off from dosing and monitoring vancomycin. Please re-order a pharmacist to dose consult or discuss with your team pharmacist if re- initiation of vancomycin therapy is needed in the future. Submitted by: Pepper Evans PharmD 10/26/2024 10:53 AM * Progress Notes - Amber Rojas - 10/26/2024 9:37 AM EDT Occupational Therapy Evaluation Patient Name: Teresa Urbina Today's Date: 10/26/2024 OT Discharge Recommendations: Home with assistance, Home health PT, Home health OT Equipment Recommended: None, Patient owns appropriate equipment History Teresa Urbina is 63 y.o. female admitted 10/25/2024 for work-up of Pneumonia of right upper lobe due to infectious organism. Problem List Active Hospital Problems Diagnosis Date Noted Pneumonia of right upper lobe due to infectious organism 10/25/2024 Past Medical History Patient has a past medical history of Brain tumor (CMS/HCC), Chemotherapy- induced nausea and vomiting (08/28/2023), Personal history of other diseases of the circulatory system, Personal history of other diseases of the musculoskeletal system and connective tissue, and Personal history of other endocrine, nutritional and metabolic disease. Past Surgical History Patient has a past surgical history that includes Tubal ligation (N/A); Tympanostomy tube placement(N/A); and Brain surgery. Precautions Medical Precautions: Fall precautions Subjective Patient and RN agreeable to Occupational Therapy evaluation and treatment session. Patient reports, I get worn down pretty quick Participants in Care Family/Caregiver Present: No Feed Weigher: Not Applicable Presentation Oxygen Therapy: Supplemental oxygen O2 Delivery Method: Nasal cannula O2 Flow Rate (L/min): 3 L/min Lines and Tubes: Telemetry, Intravenous access Pre-Session: Supine, Head of bed elevated, Lines intact Pre-Session Comments: RN agreeable to therapy evaluation. Post-Session: Supine, Head of bed elevated, Lines intact, Call light in reach, Bed alarm (zone 1, 2, 3) Post-Session Comments: All needs in reach. Home Living/Set-up Lives With: Spouse Home Type: House Home Adaptive Equipment: Rolling walker, Bedside commode, shower chair Home Layout: One level, Stairs to enter with rails Number of Stairs: 3 Bathroom: Tub/Shower: Walk-in shower, Built-in shower seat, Grab bars, Handheld shower head Bathroom: Toilet: Bedside commode, Standard Home Living Comments: Patients son and daughter in law live behind her and patients sister lives ~7minutes away. Patient reports they can provide assistance. Patient wears 2L NC at night and PRN during the day. Prior Level of Function Receives Help From: No assist required prior to admission Level of Mobility: Ambulatory- community Mobility [place]: Independent gait with device History of Falls: No ADL Performance: Independent Patient/Family Goals Statement Patient wants to be as independent as she was and be able to drive safely. Objective Pain Patient did not report any pain. At end of session, patient positioned in bed with pillows for elevation and comfort. No recliner present in room. Delirium Screening [place]ar Agitation Sedation Scale (RASS): Alert and calm Confusion Assessment Method-ICU (CAM-ICU/PCAM-ICU) Feature 3: Altered Level of Consciousness: Negative Cognition Overall Cognitive Status: Within Functional Limits Arousal/Alertness: Appropriate responses to stimuli Mood/Behavior: Alert Orientation Level: Oriented X4 Single Step Commands: Consistently Multi-Step Commands: Consistently Method of Communication: Verbal Vision - Basic Assessment Patient Visual Report: Patient wears glasses 08/12. Right Upper Extremity Examination RUE ROM Assessment RUE Assessment: Within Functional Limits Manual Muscle Testing - RUE: (Grossly 4/5) Sensation Light Touch: Right Upper Extremity: Intact Left Upper Extremity Examination LUE ROM Assessment LUE Assessment: Within Functional Limits Manual Muscle Testing - LUE: (Grossly 4/5) Sensation Light Touch: Left Upper Extremity: Intact Right Lower Extremity Examination RLE ROM Assessment RLE Assessment: Within Functional Limits Hip flexion: 4- Knee Extension: 4- Ankle Dorsiflexion: 5 Sensation Light Touch: Right Lower Extremity: Intact Left Lower Extremity Examination LLE ROM Assessment LLE Assessment: Within Functional Limits Hip flexion: 4- Knee Extension: 5 Ankle Dorsiflexion: 5 Sensation Light Touch: Left Lower Extremity: Intact Bed Mobility Bed Mobility Exam: Rolling/Turning Level of [place]: Stand-by assist Physical/Nonphysical Assist: Verbal Cues, Minimal cues Bed Mobility Exam: Scooting/Bridging Level of [place]: Stand-by assist Physical/Nonphysical Assist: Verbal Cues, Minimal cues Bed Mobility Exam: Supine to Sit Level of [place]: Stand-by assist Physical/Nonphysical Assist: Supervision Assistive Device: Bed rails Bed Mobility Exam: Sit to Supine Level of [place]: Stand-by assist Physical/Nonphysical Assist: Verbal Cues, Minimal cues Assistive Device: Bed rails Transfers Transfer Exam: Sit to stand Level of [place]: Stand-by assist (x 2 from EOB; x 1 to toilet) Physical/Nonphysical Assist: Verbal Cues, Minimal cues Assistive Device: Walker, rolling Transfer Exam: Stand to Sit Level of [place]: Stand-by assist (x 2 to EOB; x 1 to toilet) Physical/Nonphysical Assist: Verbal Cues, Minimal cues Assistive Device: Walker, rolling Toilet Transfer Level of [place]: Stand-by assist Physical/Nonphysical Assist: Verbal Cues, Minimal cues Type of Transfer: Ambulation, To toilet Assistive Device: Grab bar, Walker, rolling Balance Postural Appearance Posture: Rounded shoulders Static Sitting Balance Static Sitting-Balance Support: Left upper extremity support, Right upper extremity support, Feet supported Static Sitting-Level of Assistance: Independent Dynamic Sitting Balance Dynamic Sitting-Balance Support: No upper extremity support, Feet supported Dynamic Sitting-Balance: Lateral weight shifts, Anterior/Posterior weight shifts Level of Assistance: Independent Static Standing Balance Static Standing-Balance Support: Left upper extremity support, Right upper extremity support Static Standing-Level of Assistance: Standby assist Dynamic Standing Balance Dynamic Standing-Balance Support: Right upper extremity support, Left upper extremity support Dynamic Standing-Balance: Lateral weight shifts, Anterior/Posterior weight shifts Dynamic Standing Level of Assistance: Contact guard Self-Care Interventions Self Care/Home Management (ADLs) Time Entry: 23 Self-Care Interventions: OT facilitated bed mobility to participate in OOB ADLs and functional mobility in a upright position (see bed mobility section). OT provided physical assistance, line management and environmental adaptations to support navigation through room and hallway to decrease risk offalls. OT provided verbal cues for proper body positioning and rolling walker management during activity. OT facilitated task modification for grading activities based on patients' level of ability throughout session. Patient engaged in static/dynamic sitting EOB ~8 minutes to encourage increased activity tolerance and strength needed for OOB ADLS. Patient with increased fatigue and SOA, therapist educated on energy conservation techniques throughout ADL routine and monitored patients 02 throughout. Activity O2 Saturation Sitting EOB 86% After walking to bathroom 85% After Stair training 81% End of Session 94% Feeding Feeding Level of Assistance: Setup Feeding Interventions: Anticipated based on functional performance and clinical judgement. Grooming Grooming Level of Assistance: SBA Grooming Interventions: Patient demo'd ability to wash hands standing sink side with SBA for balance, cues for PLB and cues for rolling walker management. Bathing UE Bathing Level of Assistance: SBA LE Bathing Level of Assistance: SBA Bathing Interventions: Anticipated based on functional performance and clinical judgement. Patient reports son just installed assessable bathroom with built in seat. UE Dressing UE Dressing Level of Assistance: SBA UE Dressing Interventions: Patient required SBA for balance while doffing and donning gown in standing position. Therapist educated on energy consveration technqiues encouraging multiple RB during daily dressing routine. Lower Extremity Dressing Sock Level of Assistance: Close supervision LE Dressing Interventions: Patient demonstrated ability to adjust sock with modified figure four technique and extra time. Therapist educated on energy conservation techniques encouraging patient to utilize slip house shoes/tennis shoes. Toileting Toileting Level of Assistance: SBA Where Assessed: Toilet Toileting Interventions: Patient completed functional mobility from bed to bathroom in order to engage in toileting task. Patient completed stand to sit transfer with SBA and verbal cues for RW management and use of grab bar. Patient required extra time for toileting needs. Post BM, patient completed sit to stand with use of grab bar, completed rachel-care and clothing management with SBA and cues for PLB. Patient required short standing rest break prior to hand hygiene. Community Re-entry: Patient engaged in functional mobility from patient room throughout hallway requiring SBA for safety use of RW to simulate household distance in preparation for ADLS. Patient completed ~200 feet with ~2 standing rest break 2/2 fatigue and energy conservation. Pt with no LOB. Therapist educated on energy conservation techniques providing cues to pace self, complete seated ADLs and take RB as needed. Additionally, patient ascended/descended 3 steps with CGA for safety. Health Management Health Management interventions: Patient with concerns of fatigue and decreased energy for daily routines. Patient reports, It takes me 35 minutes just to get dressed. Throughout session, OT educated on energy conservation techniques encouraging patient to place chairs/stools throughout home for rest breaks, adaptive clothing that would require less physical exertion and daily schedule modification. Standardized Assessments [facility] 6-Click Daily Activities Help from Other: Don/Doff Regular Lower Body Clothings: None Help From Other: Bathing: Little Help From Other: Toileting: Little Help From Other: Don/Doff Upper Body Clothings: None Help From Other: Grooming: None Help From Other: Eating Meals: None [facility] 6 Click - Daily Activities Score: 22 Assessment Patient responded to OT evaluation and treatment session focused on ADL and functional transfer tasks fair this date with rest as needed. Patient cooperative throughout session, however, was limited by rapid fatigue, weakness and shortness of air. . Patient demo'd deficits in ADL performance, functional endurance, functional mobility, and would continue to benefit from skilled inpatient OT treatment to address deficits and increase safety and independence. However, patients family will provide assistance upon discharge and patient will be safeto return home. Additionally, patient would benefit from Home health OT/PT at discharge to increaseindependence with functional ADLs, expedite return to valued occupations, increase home safety, anddecrease caregiver burden. OT Findings: Impaired ADL performance, Impaired IADL performance, Impaired functional mobility, Impaired balance, Impaired postural/trunk control, Decreased endurance/ventilation/gas exchange Evaluation/Treatment Tolerance: Patient limited by fatigue Rehab Potential: Good, to achieve stated therapy goals Barriers to Discharge: Comorbidities Eval Complexity Occupational Profile: Expanded review of medical/therapy records and additional review of physical,cognitive, or psychosocial history Performance Deficits: Activities of daily living (ADLs), Instrumental activities of daily living (IADLs), Habits, Routines Clinical Decision Making: Moderate Overall Eval complexity: Moderate OT Recommendations Discharge Destination: Home with assistance, Home health PT, Home health OT Discharge Equipment: None, Patient owns appropriate equipment Plan Progress towards baseline with ADLS/IADLs and functional mobility. Planned OT Interventions ADL retraining, IADL retraining, Balance training, Bed mobility Training, ROM, Strengthening, Stretching, Transfer training, Functional mobility, Caregiver education OT Frequency 1 - 3 times per week OT Duration 2 weeks Goals OT GOAL DETAILS Time Frame OT Goal 1: Pt will be modified independent with total body dressing demonstrating good carryover ofenergy conservation techniques. 2 weeks OT Goal 2: Pt will complete toileting including clothing management and personal hygiene with Mod Iand AAD PRN. 2 weeks OT Goal 3: Pt will demonstrate independence in bilateral UE HEP to increase strength and endurance for ADL performance. 2 weeks Written by Amber Rojas on 10/26/24 at 11:02 AM. * Progress Notes - Aurora Covington - 10/26/2024 9:36 AM EDT Physical Therapy Evaluation Patient Name: Teresa Urbina Today's Date: 10/26/2024 PT Discharge Recommendations: Home with assistance, Home health PT, Home health OT Equipment Recommended: Patient owns appropriate equipment History Teresa Urbina is 63 y.o. female admitted 10/25/2024 for work-up of Pneumonia of right upper lobe due to infectious organism. Problem List Active Hospital Problems Diagnosis Date Noted Pneumonia of right upper lobe due to infectious organism 10/25/2024 Procedures Past Medical History Patient has a past medical history of Brain tumor (CMS/HCC), Chemotherapy- induced nausea and vomiting (08/28/2023), Personal history of other diseases of the circulatory system, Personal history of other diseases of the musculoskeletal system and connective tissue, and Personal history of other endocrine, nutritional and metabolic disease. Past Surgical History Patient has a past surgical history that includes Tubal ligation (N/A); Tympanostomy tube placement(N/A); and Brain surgery. Precautions Medical Precautions: Fall precautions Subjective Pt and RN agreeable to physical therapy session. Participants in Care Family/Caregiver Present: No Feed Weigher: Not Applicable Presentation Oxygen Therapy: Supplemental oxygen O2 Delivery Method: Nasal cannula O2 Flow Rate (L/min): 3 L/min Lines and Tubes: Telemetry, Intravenous access Pre-Session: Supine, Head of bed elevated, Lines intact Pre-Session Comments: RN agreeable to therapy evaluation. Post-Session: Supine, Head of bed elevated, Lines intact, Call light in reach, Bed alarm (zone 1, 2, 3) Post-Session Comments: All needs in reach. Home Living/Set-up Lives With: Spouse Home Type: House Home Adaptive Equipment: Rolling walker, Bedside commode, shower chair Home Layout: One level, Stairs to enter with rails Number of Stairs: 3 Bathroom: Tub/Shower: Walk-in shower, Built-in shower seat, Grab bars, Handheld shower head Bathroom: Toilet: Bedside commode, Standard Home Living Comments: Patients son and daughter in law live behind her and patients sister lives ~7minutes away. Patient reports they can provide assistance. Patient wears 2L NC at night and PRN during the day. Prior Level of Function Receives Help From: No assist required prior to admission Level of Mobility: Ambulatory- community Mobility [place]: Independent gait with device History of Falls: No ADL Performance: Independent Patient/Family Goals Return home at [facility]. Objective Pain Pt denies being in any pain. Pt placed in position of comfort at end of therapy session. Delirium Screening [place]ar Agitation Sedation Scale (RASS): Alert and calm Confusion Assessment Method-ICU (CAM-ICU/PCAM-ICU) Feature 3: Altered Level of Consciousness: Negative Cognition Overall Cognitive Status: Within Functional Limits Arousal/Alertness: Appropriate responses to stimuli Mood/Behavior: Alert Orientation Level: Oriented X4 Single Step Commands: Consistently Multi-Step Commands: Consistently Method of Communication: Verbal Vision - Basic Assessment Patient Visual Report: Patient wears glasses 24/7. Right Upper Extremity Examination RUE Assessment: Within Functional Limits Manual Muscle Testing - RUE: Within functional limits Sensation Light Touch: Right Upper Extremity: Intact Left Upper Extremity Examination LUE ROM Assessment LUE Assessment: Within Functional Limits Manual Muscle Testing - LUE Manual Muscle Testing - LUE: Within functional limits Sensation Light Touch: Left Upper Extremity: Intact Right Lower Extremity Examination RLE ROM Assessment RLE Assessment: Within Functional Limits Manual Muscle Testing - RLE Hip flexion: 4- Knee Extension: 4- Ankle Dorsiflexion: 5 Sensation Light Touch: Right Lower Extremity: Intact Left Lower Extremity Examination LLE Assessment: Within Functional Limits Hip flexion: 4- Knee Extension: 5 Ankle Dorsiflexion: 5 Sensation Light Touch: Left Lower Extremity: Intact Bed Mobility Bed Mobility Interventions: Pt given verbal cues for timing/sequencing bed mobility. Pt required increased period of rest to perform bed mobility due to fatigue. Bed Mobility Exam: Rolling/Turning Level of [place]: Stand-by assist Physical/Nonphysical Assist: Verbal Cues, Minimal cues Bed Mobility Exam: Scooting/Bridging Level of [place]: Stand-by assist Physical/Nonphysical Assist: Verbal Cues, Minimal cues Bed Mobility Exam: Supine to Sit Level of [place]: Stand-by assist Physical/Nonphysical Assist: Supervision Bed Mobility Exam: Sit to Supine Level of [place]: Stand-by assist Physical/Nonphysical Assist: Verbal Cues, Minimal cues Transfers Transfer Interventions: Pt given verbal cues to push up from the bed to assume standing position and to reach back for the bed prior to sitting down to decrease fall risk. Transfer Exam: Sit to stand Level of [place]: Stand-by assist (x 2 from EOB; x 1 to toilet) Physical/Nonphysical Assist: Verbal Cues, Minimal cues Assistive Device: Walker, rolling Transfer Exam: Stand to Sit Level of [place]: Stand-by assist (x 2 to EOB; x 1 to toilet) Physical/Nonphysical Assist: Verbal Cues, Minimal cues Assistive Device: Walker, rolling Toilet Transfer Level of [place]: Stand-by assist Physical/Nonphysical Assist: Verbal Cues, Minimal cues Type of Transfer: Ambulation, To toilet Assistive Device: Grab bar, Walker, rolling Balance Postural Appearance Posture: Rounded shoulders Static Sitting Balance Static Sitting-Balance Support: Left upper extremity support, Right upper extremity support, Feet supported Static Sitting-Level of Assistance: Independent Dynamic Sitting Balance Dynamic Sitting-Balance Support: No upper extremity support, Feet supported Dynamic Sitting-Balance: Lateral weight shifts, Anterior/Posterior weight shifts Level of Assistance: Independent Static Standing Balance Static Standing-Balance Support: Left upper extremity support, Right upper extremity support Static Standing-Level of Assistance: Standby assist Dynamic Standing Balance Dynamic Standing-Balance Support: Right upper extremity support, Left upper extremity support Dynamic Standing-Balance: Lateral weight shifts, Anterior/Posterior weight shifts Dynamic Standing Level of Assistance: Contact guard Therapeutic Activity (11 minutes) Refer to bed mobility and transfer sections. Pt benefited from skilled physical therapy interventions including: Monitoring of vitals to ensure activity tolerance Provision of increased time frames to support optimal level of pt participation Skilled organization and management of medical lines/tubes Environmental set-up to ensure safety and accessibility to all needed areas of treatment space Patient's vitals monitored with activity with the following readings recorded: Activity O2 Saturation Sitting EOB 86% After walking to bathroom 85% After Stair training 81% End of Session 94% Patient requiring ~1 minute seated rest breaks between activities to recover. Gait Training (12 minutes) Assistance: Minimal verbal cues, Standby assist, Minimal tactile cues Distance: 2 x 200' Gait Analysis: Pt demonstrated ability to safely ambulate both household and community distances. Pt desaturates with all mobility despite being on 3L of NC. Pt given verbal cues on self pacing and pursed lip breathing to prevent desaturation activities. Pt able to recover within 1 minute of standing/seated rest breaks. Stairs Stair Training Interventions: Pt will navigate up/down 3 stairs with step to gait pattern and use of unilateral handrail on the left with CGA. Standardized Assessments Standardized Assessments Standardized Assessments: AMPA 6-Clicks Mobility Assessment [facility] 6-Clicks Mobility Assessment Difficulty patient has turning over in bed (including adjusting bedclothes, sheets, and blankets)?:None Difficulty patient has sitting down on and standing up from a chair with arms (wheelchair, bedside commode, etc.)?: None Difficulty patient has moving from lying on back to sitting on the side of the bed?: None How much help does the patient need moving to and from a bed to a chair (including a wheelchair)?: None How much help does the patient need to walk in hospital room?: None How much help does the patient need climbing 3-5 steps with a railing?: A little [facility] 6-Clicks Mobility Assessment Total : 23 No data recorded Assessment Pt is a 63yoF who presents to ED for SOA and possible recurrent PNA. Pt has a past medical history including smal-cell lung cancer. Pt tolerated therapy session well with no adverse response. Pt ableto safely ambulate both household and community distances at this time making her safe to return home when medically appropriate. However, pt desaturates into low 80s with all mobility and would benefit from inpatient physical therapy to increase activity tolerance. Impairments: Decreased endurance, ventilation, and/or gas exchange, Impaired gait dynamics/performance, Decreased strength, Impaired locomotion, Impaired functional mobility/transfers, Impaired balance Activity Limitations: Inability to ambulate community distances, Inability to complete ADLs independently, Inability to ambulate household distances, Inability to transfer independently, Inability toambulate independently Participation Restrictions: Community leisure, Home management, Self-care Activity Tolerance: Tolerates 30 min activity with multiple rests Evaluation/Treatment Tolerance: Patient limited by fatigue Diagnosis: Impaired functional mobility Rehab Potential: Good, to achieve stated therapy goals Eval Complexity History Profile: 1 - 2 personal factors and/or comorbidities Clinical Presentation: Evolving clinical presentation with changing characteristics PT Recommendations Discharge Destination: Home with assistance, Home health PT, Home health OT Discharge Equipment: Patient owns appropriate equipment Plan Planned PT Interventions Balance training, Bed mobility training, Gait training, Transfer training, Neuromuscular re-education, Strengthening, Functional Mobility PT Frequency 1 - 3 times per week PT Duration 2 weeks Goals PT GOAL DETAILS Time Frame PT Goal 1: Pt will be IND with HEP and discharge recommendations. 2 weeks PT Goal 2: Pt will perform sup<>sit IND. 2 weeks PT Goal 3: Pt will perform STS IND. 2 weeks PT Goal 4: Pt will ambulate 300' with LRAD and SBA and and maintain SPO2 >88%. 2 weeks PT Goal 5: Pt will navigate up/down 3 steps with use of unilateral handrail and SBA. 2 weeks Written by Aurora Covington on 10/26/24 at 9:52 AM. * Progress Notes - Darren Moon MD - 10/26/2024 7:14 AM EDT Images from the original note were not included. Hospital Medicine Progress Note Subjective Subjective/Night Night notes reviewed. Had HR up to 170s and found to be in a-fib with RVR. Given metoprolol 25mg x1and converted to NSR. Patient examined at bedside this morning. States breathing improving. Able to walk to the bathroom without significant weakness. Says she's wheezy in the morning. Takes albuterol nebs q12h scheduled at home. Denies fevers, chills. Still has concern for rash in groin/buttocks. Objective Objective Last Recorded Vitals Blood pressure 121/61, pulse 87, temperature 37.1 ??C (98.8 ??F), temperature source Oral, resp. rate 20, weight 119 kg (262 lb 5.6 oz), SpO2 95%. Physical Exam Constitutional: General: She is not in acute distress. Appearance: She is not toxic-appearing. Cardiovascular: Rate and Rhythm: Normal rate. Rhythm irregular. Heart sounds: No murmur heard. Pulmonary: Effort: Pulmonary effort is normal. No tachypnea, accessory muscle usage, prolonged expiration, respiratory distress or retractions. Breath sounds: No decreased air movement or transmitted upper airway sounds. Examination of the right-upper field reveals wheezing. Examination of the left- upper field reveals wheezing. Examination of the right-middle field reveals wheezing and rhonchi. Examination of the left-middle field reveals wheezing and rhonchi. Examination of the right-lower field reveals wheezing and rhonchi. Examinationof the left-lower field reveals wheezing and rhonchi. Wheezing and rhonchi present. No decreased breath sounds. Musculoskeletal: General: No tenderness. Right lower leg: Edema (1+ pitting, improving) present. Left lower leg: Edema (1+ pitting, improving) present. Skin: General: Skin is warm. Coloration: Skin is not jaundiced. Neurological: Mental Status: She is alert. Data Labs personally reviewed: Lab Results Component Value Date GLUCOSE 175 (H) 10/26/2024 NA 140 10/26/2024 K 3.6 10/26/2024 CO2 29 10/26/2024 CL 100 10/26/2024 BUN 9 10/26/2024 CREATININE 0.88 10/26/2024 Lab Results Component Value Date WBC 5.26 10/26/2024 RBC 2.28 (L) 10/26/2024 HGB 7.0 (L) 10/26/2024 HCT 22.0 (L) 10/26/2024 Lab Results Component Value Date AST 21 10/26/2024 ALT 24 10/26/2024 ALKPHOS 90 10/26/2024 BILITOT 0.6 10/26/2024 Imaging Pertinent imaging personally reviewed CT Angio Pulmonary Embolism 10/25/2024 CLINICAL INDICATION: dyspnea COMPARISON: None. IMPRESSION: No pulmonary embolism. Airspace disease in the dependent portion of the right upper lobe and right lower lobe. Interstitial thickening in the posterior aspect of the bilateral upper lobes and lower lobes. CT Chest W IV Contrast 10/13/2024 CLINICAL INDICATION: Pneumonia, complication suspected COMPARISON: September 01, 2024 IMPRESSION: Right lower lobe nodular airspace disease concerning for infection. Slight decrease in size of medial right lower lobe pleural nodule Assessment/Plan Assessment & Plan Principal Problem: Pneumonia of right upper lobe due to infectious organism Teresa Urbina is a 63 y.o. female admitted for acute bacterial pneumonia. This condition poses an acute threat to life/bodily function. Overall improving. Reassuring SOA and weakness improving. Likely pneumonia has worsened due to duration of treatment vs. Agent selection. If no clinical improvement, then consider pulmonology for further evaluation of persistent/recurrent pneumonias. Discussed with oncology who recommended continuing home dexamethasone at most recent dose (2mg po q12h per chart review). Okay for infection standpoint and is currently utilized for cerebral edema. MRSA nares negative, can discontinue vancomycin. Strep and Legionella antigens negative. Also discussed with radiation oncology that radiation treatments will continue as scheduled while inpatient and formal consultation is not required to do so. #Bacterial pneumonia, likely hospital-acquired vs recurrent - Recent hospitalization for neutropenic fever and sepsis 2/2 pneumonia - Treated with cefepime - Imaging on CT PE with worsening features and consolidation c/f worsening pneumonia Plan: - Will discontinue vancomycin given MRSA nares negative - Will continue azithromycin 500mg PO daily x3 for atypical pneumonia coverage - Will follow up blood and respiratory cultures and de-escalate - If clinical status worsens, then will consider pulmonary consult for further evaluation of infectious agent causing current condition - Will consider induced sputum culture if no culture data from sputum given c/f recurrent pneumonia - Will order guaifenesin, tessalon, DuoNebs PRN for symptomatic management #T2DM - Glucose 200 on BMP - Last A1c 08/2024 6.3 Plan - Will order ACHS POCT, SSI, and hypoglycemia protocol - Will continue insulin glargine 10u sub-q nightly - Will continue to monitor for s/sx of hypoglycemia - Will repeat A1c if indicated - Will place on diabetic diet - Will restart home anti-hyperglycemics as able #Anemia of likely chronic disease/inflammation - Baseline Hgb ~10 - Hgb 7.4 on admission - No overt signs of bleeding at this time - HDS Plan: - Will consent for blood and upload to chart - Will order intermittent CBC to monitor hemoglobin - Will monitor for s/sx of bleeding/anemia and intervene PRN - Will transfuse for hgb <7 #Sacral and inguinal rash - Will consult wound care Chronic medical conditions #HTN: will hold home carvedilol for low-normotension #Chronic pain: resume home gabapentin #COPD: resume home inhalers, schedule albuterol neb q12h #Mood: resume home fluoxetine and PRN hydroxyzine #HLD: resume home statin #Obesity, class III (BMI 41): complicates all aspects of care #A-fib: continue home rivaroxaban, electrolytes K+ >4, Mg2+ >2; will give spot metoprolol tartrate #Metastatic small-cell lung cancer with brain metastasis s/p craniotomy on palliative chemo/radiation: continue dexamethasone 2mg q12h per medical oncology recommendations, continue radiation treatment as scheduled Care today included: HIGHRISK: Discussion of management/test with another provider: medical oncology Patient's history, interview/physical exam and above plan were discussed with attending physician. Stefano Moon MD Internal Medicine, PGY-1 Attending: Dr. Amin Cosigned by Robert Amin MD at 10/27/2024 7:44 AM EDT Associated attestation - Robert Amin MD - 10/27/2024 7:44 AM EDT I saw and evaluated the patient with the resident/fellow. I discussed the case with the resident/fellow and agree with the findings and plan as documented. * ED Notes - Veronique Boogie - 10/25/2024 9:17 PM EDT O2 sustain 88% went over to obs told RN Veronique Mascorro [id number]/25/[id number] * H&P - Darren Moon MD - 10/25/2024 4:15 PM EDTAssociated Order(s): Consult to [facility] Images from the original note were not included. [facility] Medicine History & Physical Consult to [facility] Consult performed by: Darren Moon MD Consult ordered by: Doris Contreras MD Reason for consult: PNA Subjective 10/25/2024 Chief Complaint: Chief Complaint Patient presents with Shortness of Breath Weakness - Generalized History Of Present Illness Teresa Urbina is a 63 y.o. female with a PMH of small-cell lung cancer with brain metastasis s/p craniotomy for metastatic resection on palliative chemo/radiation, COPD on 2L oxygen, and recent hospitalization for neutropenic fever and pneumonia who presents with weakness, shortness of breath with increasing oxygen requirements. Patient examined at bedside with family present. States that for several days she has had marked weakness and lethargy and unable to perform daily activities of living. Of note, per chart review, shewas at a cardiology appointment where she was reportedly very lethargic with concerns for lung findings concerning for infection. She denies sick contacts, fevers, but has been feeling colder than normal. She also endorses increased sputum production today. She normally wears 2L oxygen at home PRN for COPD, but has required increased to 2.5-3L recently. Also endorses genital itching and discomfort and possible rash. Endorses headache that improves with radiation treatments. Review of Systems Constitutional: Positive for activity change, appetite change, chills and fatigue. Negative for fever. HENT: Positive for mouth sores, sore throat and trouble swallowing. Negative for facial swelling. Eyes: Positive for discharge. Negative for visual disturbance. Respiratory: Positive for cough and shortness of breath. Negative for chest tightness. Cardiovascular: Positive for leg swelling. Negative for chest pain. Gastrointestinal: Positive for diarrhea. Negative for abdominal distention, abdominal pain, nausea and vomiting. Genitourinary: Positive for vaginal discharge. Negative for difficulty urinating and dysuria. Musculoskeletal: Negative for arthralgias, neck pain and neck stiffness. Skin: Positive for rash. Neurological: Positive for headaches. Psychiatric/Behavioral: Negative. 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 Past Medical History Past Medical History[1] Surgical History Surgical History[2] Family History Family History[3] 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[4] Home Medications Current Outpatient Medications Medication Instructions Accu-Chek Softclix Lancets lancets USE TO TEST BLOOD SUGAR 3 TIMES EACH DAY Alcohol Swabs (Easy Touch Alcohol Prep Medium) 70 % pads atorvastatin (LIPITOR) 40 mg, Daily B-D UF III MINI PEN NEEDLES 31G X 5 MM misc benzonatate (TESSALON) 100 mg, Oral, 3 times daily PRN, Do not crush or chew. Blood Glucose Monitoring Suppl (Tabberio Flex System) w/Device kit Tqsauyz-Ygdtmsqncmw-Afzjrdnscv (Breztri Aerosphere) 160-9-4.8 MCG/ACT aerosol 2 puffs, 2 times daily Calcium Carb-Cholecalciferol 600-10 MG-MCG tablet 600 mg, Daily calcium carbonate (TUMS) 500 mg, 4 times daily PRN cetirizine (ZYRTEC) 10 mg, Daily ciclopirox (Penlac) 8 % solution Apply over affected nail fold daily. Continuous Glucose Douper (Fluidinfo G7 Douper) device USE TO MEASURE BLOOD SUGAR DIRECTED Continuous Glucose Sensor (Dexcom G6 Sensor) misc USE DIRECTED TO MEASURE BLOOD SUGAR. REPLACE SENSOR EVERY 10 DAYS dexamethasone (DECADRON) 2 mg, Oral, Every 12 hours empagliflozin (JARDIANCE) 25 mg, Daily ferrous sulfate 325 mg, Daily with breakfast FLUoxetine (PROZAC) 40 mg, Daily FREESTYLE LITE test strip USE TO TEST BLOOD SUGAR 3 TIMES EACH DAY AND NEEDED gabapentin (NEURONTIN) 600 mg, 4 times daily hydrOXYzine HCl (ATARAX) 25 mg, 3 times daily PRN insulin glargine-yfgn 20 Units, Subcutaneous, Nightly Insulin Lispro (ADMELOG, HUMALOG) 15 Units, Subcutaneous, 3 times daily with meals, Can be adjustedper [facility] at [facility] Lantus SoloStar 100 UNIT/ML injection pen 2 times daily lidocaine (Xylocaine) 2 % solution 5 mL, As needed magic mouthwash BLM (FIRST-Mouthwash) suspension 15 mL, Swish & Spit, 4 times daily before meals and nightly magnesium oxide (MAG-OX) 400 mg, Oral, 2 times daily, Hold for diarrhea melatonin tablet Take 2 tablets by mouth nightly. metFORMIN (GLUCOPHAGE) 1,000 mg, 2 times daily with meals metoprolol succinate XL (TOPROL-XL) 50 mg, Oral, Daily, Do not crush or chew. montelukast (Singulair) 10 MG tablet Take 1 tablet by mouth nightly. nystatin (MYCOSTATIN) 500,000 Units, Swish & Swallow, 4 times daily ondansetron (ZOFRAN) 8 mg, Every 8 hours PRN ondansetron (ZOFRAN) 8 mg, Oral, 2 times daily, Take on Day 4 of cycle and then take PRN pantoprazole (PROTONIX) 40 mg, Daily prochlorperazine (COMPAZINE) 10 mg, Oral, Every 6 hours PRN rOPINIRole (Requip) 1 MG tablet TAKE 1 TABLET 2 TIMES EACH DAY SITagliptin (JANUVIA) 50 mg, Daily tiZANidine (ZANAFLEX) 2 mg, Nightly triamterene-hydrochlorothiazide (Maxzide-25) 37.5-25 MG tablet Take 1 tablet by mouth every morning. Vitamin B-12 ER 1000 MCG tablet controlled-release 1 tablet, Daily Xarelto 20 mg, Every evening Objective Blood pressure 104/56, pulse 81, temperature 36.9 ??C (98.4 ??F), temperature source Oral, resp. rate 23, weight 119 kg (262 lb 5.6 oz), SpO2 94%. Physical Exam Vitals reviewed. Constitutional: General: She is not in acute distress. Appearance: She is obese. She is ill-appearing. She is not toxic-appearing. HENT: Head: Normocephalic. Right Ear: External ear normal. Left Ear: External ear normal. Nose: Nose normal. Mouth/Throat: Mouth: Mucous membranes are dry. Pharynx: No oropharyngeal exudate or posterior oropharyngeal erythema. Eyes: General: No scleral icterus. Right eye: No discharge. Left eye: No discharge. Conjunctiva/sclera: Conjunctivae normal. Cardiovascular: Rate and Rhythm: Normal rate. Pulses: Normal pulses. Heart sounds: Normal heart sounds. No murmur heard. Pulmonary: Effort: Pulmonary effort is normal. No tachypnea, accessory muscle usage, prolonged expiration, respiratory distress or retractions. Breath sounds: No stridor or transmitted upper airway sounds. Examination of the right-middle fieldreveals rhonchi. Examination of the left-middle field reveals rhonchi. Examination of the right-lower field reveals wheezing and rhonchi. Examination of the left-lower field reveals wheezing and rhonchi. Wheezing and rhonchi present. Abdominal: General: Abdomen is protuberant. There is no distension. Palpations: Abdomen is soft. There is no mass. Tenderness: There is no abdominal tenderness. There is no rebound. Hernia: No hernia is present. Musculoskeletal: Cervical back: Neck supple. No rigidity or tenderness. Right lower leg: Edema (2+) present. Left lower leg: Edema (2+) present. Lymphadenopathy: Cervical: No cervical adenopathy. Skin: General: Skin is warm. Capillary Refill: Capillary refill takes less than 2 seconds. Coloration: Skin is not jaundiced or pale. Findings: Bruising present. No lesion. Comments: Scalp incision site c/d/I, no edema, mild fluctuance, non tender, nonpurulent Neurological: Mental Status: She is alert. Sensory: No sensory deficit. Psychiatric: Mood and Affect: Mood normal. Behavior: Behavior normal. Data Labs personally reviewed CBC WBC 6.43 Hb 7.4 (L) Plt 175 Hct 23.5 (L) ANC 4.60 INR ??, PTT ??, Anti-Xa ?? BMP Na 142 Cl 102 BUN 13 Glu 197 (H) K 4.0 Co2 25 Cr 0.94 Ca 8.2 (L) iCa 4.4 (L) Mg ??, Phos ?? Lactate ?? LFT AST ?? AlkPhos ?? T Prot ?? ALK ?? Bili ?? Alb ?? D.Bili ?? Imaging Pertinent imaging personally reviewed CT Angio Pulmonary Embolism 10/25/2024 CLINICAL INDICATION: dyspnea COMPARISON: None. IMPRESSION: No pulmonary embolism. Airspace disease in the dependent portion of the right upper lobe and right lower lobe. Interstitial thickening in the posterior aspect of the bilateral upper lobes and lower lobes. CT Chest W IV Contrast 10/13/2024 CLINICAL INDICATION: Pneumonia, complication suspected COMPARISON: September 01, 2024 IMPRESSION: Right lower lobe nodular airspace disease concerning for infection. Slight decrease in size of medial right lower lobe pleural nodule Assessment/Plan Assessment/ Plan Principal Problem: Pneumonia of right upper lobe due to infectious organism Teresa Urbina is a 63 y.o. female with PMH as above who presents with weakness, shortness of breath, and increased sputum production admitted for bacterial pneumonia c/f hospital-acquired. This condition poses an acute threat to life/bodily function. #Bacterial pneumonia, likely hospital-acquired - Recent hospitalization for neutropenic fever and sepsis 2/2 pneumonia - Treated with cefepime - Imaging on CT PE with worsening features and consolidation c/f worsening pneumonia Plan: - Will initiate vancomycin and pip/tazo for broad coverage given immunosuppression and recent hospitalization for - Will add azithromycin 500mg PO daily x3 for atypical pneumonia coverage - Will order blood and respiratory cultures, Streptococcus pneumoniae and Legionella urine antigensto assess source/microbe - Will consider induced sputum culture if no culture data from sputum given c/f recurrent pneumonia - Will order guaifenesin, tessalon, DuoNebs PRN for symptomatic management - Will repeat lactate #T2DM - Glucose 200 on BMP - Last A1c 08/2024 6.3 Plan - Will order ACHS POCT, SSI, and hypoglycemia protocol - Will continue to monitor for s/sx of hypoglycemia - Will repeat A1c if indicated - Will place on diabetic diet - Will restart home anti-hyperglycemics as able #Anemia of likely chronic disease/inflammation - Baseline Hgb ~10 - Hgb 7.4 on admission - No overt signs of bleeding at this time - HDS Plan: - Will consent for blood and upload to chart - Will order intermittent CBC to monitor hemoglobin - Will monitor for s/sx of bleeding/anemia and intervene PRN - Will transfuse for hgb <7 Chronic medical conditions #HTN: will hold home carvedilol for low-normotension #Chronic pain: resume home gabapentin #COPD: resume home inhalers, DuoNebs PRN #Mood: resume home fluoxetine and PRN hydroxyzine #HLD: resume home statin #Obesity, class III (BMI 41): complicates all aspects of care #A-fib: continue home rivaroxaban, electrolytes K+ >4, Mg2+ >2 #Metastatic small-cell lung cancer with brain metastasis s/p craniotomy on palliative chemo/radiation: will consult oncology tomorrow for further recommendations on dexamethasone continuation, will hold for now given c/f acute infection Care today included: HIGHRISK: Discussion of management/test with another provider: ED Patient's history, interview/physical exam and above plan were discussed with attending physician. Stefano Moon MD Internal Medicine, PGY-1 Attending: Dr. Amin [1] Past Medical History: Diagnosis Date Brain tumor (CMS/HCC) Chemotherapy-induced nausea and vomiting 08/28/2023 Personal history of other diseases of the circulatory system History of essential hypertension Personal history of other diseases of the musculoskeletal system and connective tissue History of osteoarthritis Personal history of other endocrine, nutritional and metabolic disease History of type 2 diabetes mellitus [2] Past Surgical History: Procedure Laterality Date BRAIN SURGERY TUBAL LIGATION N/A Tubal Ligation from [facility] TYMPANOSTOMY TUBE PLACEMENT N/A Ear Surgery Eustachian Tube from [facility] [3] Family History Problem Relation Name Age of Onset No Known Problems Mother No Known Problems Father Diabetes Other Fibromyalgia Other [4] 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 Tobacco Use Smoking status: Former Current packs/day: 0.00 Average packs/day: 1.5 packs/day for 48.4 years (72.6 ttl pk-yrs) Types: Cigarettes Start date: 1975 Quit date: 10/17/2023 Years since quittin.0 Smokeless tobacco: Never Vaping Use Vaping status: Never Used Substance Use Topics Alcohol use: No Drug use: Never Cosigned by Robert Amin MD at 10/27/2024 7:40 AM EDT Associated attestation - Robert Amin MD - 10/27/2024 7:40 AM EDT I saw and evaluated the patient with the resident/fellow. I discussed the case with the resident/fellow and agree with the findings and plan as documented. * Progress Notes - Meliton Duran, PharmD - 10/25/2024 4:05 PM EDT Pharmacokinetic Consult - Therapeutic Drug Monitoring HPI and Hospital Course: Teresa Urbina is a 63 y.o. female presenting with pneumonia who was started on IV vancomycin. Pharmacy was consulted for management of vancomycin. Dose History: Recent Vancomycin Admin vancomycin (Vancocin) 2,500 mg in sodium chloride 0.9 % 500 mL IVPB (mg) 2,500 mg Given 10/25/24 1245 Wt Readings from Last 1 Encounters: 10/25/24 119 kg (262 lb 5.6 oz) BMI: 41.09 kg/m?? Creatinine, Plasma (mg/dL) Date/Time Value 10/25/2024 1028 0.94 10/16/2024 0549 0.54 (L) 10/15/2024 0419 0.64 Estimated Creatinine Clearance: 81.8 mL/min (by C-G formula based on SCr of 0.94 mg/dL). Assessment Estimated kinetic evaluation utilizing population kinetics: Vancomycin Dosing Method Vancomycin Dose Calculation Method Area under the curve (AUC) dosing General Parameters for Vancomycin Dose Calculation (AUC) Dosing Weight 119 kg (262 lb 5.6 oz) Vancomycin clearance calculation method Crass equation (For BMI greater than 30) Administer over 90 minutes AUC 24 hr goal (mg-hr/L) 500 mg??hr/L Estimated creatinine clearance (mL/min 81.8 mL/min Matzke Equation Parameters for Vancomycin Dose Calculation (AUC) Estimated vancomycin Vd (0.7 L/kg typically) 0.65 L/kg Crass Equation Parameters for Vancomycin Dose Calculation (AUC) Serum creatinine (mg/dL) 0.94 mg/dL Recommended Initial Vancomycin Dosing Estimated Ke (hr ^-1) 0.0723 hr^-1 Estimated half-life (hr) 9.59 hr Estimated vancomycin Cl (L/hr) 4.295 Recommended TDD (mg) 2147.5 Plan 1. Recommend loading dose of 2500 mg IV once 2. Recommend initiating vancomycin 1000 mg IV every 12 hours to target an AUC of 400-600. 3. Monitor renal function (Scr and BUN) and UOP at least 2-3x/week or more frequently if renal function changes. 4. Obtain vancomycin levels around the 4th dose of new regimen if therapy is to be continued. Pharmacy will continue to follow. Submitted by: Meliton Duran PharmD 10/25/2024 4:04 PM * ED Procedure Note - Estuardo Santos MD - 10/25/2024 9:51 AM EDTAssociated Order(s): POC Ultrasound - Bedside; POC Ultrasound - Bedside Procedure Reason: hypoxia, hypotension POC Ultrasound - Bedside Performed by: Estuardo Santos MD Authorized by: Doris Contreras MD Procedure specific details: Limited Cardiac Ultrasound A focused ultrasound of the heart was performed to evaluate for pericardial effusion, tamponade, severe hypovolemia, or gross abnormalities of cardiac anatomy or function in this patient. The ultrasound was performed with the following indications, as noted in the H&P: Hypoxia Identified structures: The pericardial sac, myocardium, and 4 chambers were identified using the following views: Parasternal long axis and Apical 4 chamber Findings Exam of the above structures revealed the following findings: Pericardial Effusion: Absent Pericardial tamponade: absent Visual estimation of LV function: Normal Visual estimation of RV size: less than 1:1 RV/LV ratio Other: n/a Impression: Unremarkable limited cardiac ultrasound The images were Saved in [facility] - E. The study was technically adequate. Comments: n/a POC Ultrasound - Bedside Performed by: Estuardo Santos MD Authorized by: Doris Contreras MD Procedure specific details: Limited Thoracic Ultrasound A focused ultrasound exam of the pleural spaces was performed to evaluate for pneumothorax, pulmonary edema, pleural effusion and/or consolidation. The ultrasound was performed with the following indications, as noted in the H&P: Hypoxia Identified structures: The Bilateral thoracic cavities were examined. Findings: Lung sliding: Leftpresent Rightpresent B-lines: Left anteriorabsent Right anteriorabsent Left lateralpresent Right lateralpresent Pleural Effusion: Leftabsent Rightabsent Consolidation: Left anteriorabsent Right anteriorabsent Left lateralabsent Right lateralabsent Left posteriorabsent Right posteriorabsent Other: n/a Impression: No Pneumothorax No Pleural effusion Bilateral inferior B-lines No Consolidation The images were Saved in [facility] - E. The study was technically adequate. Comments: n/a Estuardo Santos MD Resident 10/25/24 1026 Cosigned by Doris Contreras MD at 10/25/2024 11:00 AM EDT Associated attestation - Doris Contreras MD - 10/25/2024 11:00 AM EDT By electronically signing this report, I, the attending physician, attest that I have personally reviewed the image(s) for the above examination(s) and agree with the final edited report. * ED Provider Notes - Estuardo Santos MD - 10/25/2024 9:51 AM EDT - HPI Chief Complaint Patient presents with Shortness of Breath Weakness - Generalized HPI Teresa Urbina is a 63 y.o. female who presents with Shortness of Breath and Weakness - Generalized Patient reports that she was discharged from the hospital about one-week heel after being treated for pneumonia. Since then she has had worsening shortness of breath and fatigue. She typically wears 2 L of oxygen at home, sometimes it is not require any oxygen. She has been requiring 3 L at this point. States she has had a productive cough. Denies chest pain. Patient History Past Medical History[1] Surgical History[2] Family History[3] 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[4] Allergies: Allergies[5] Physical Exam ED Triage Vitals [10/25/24 0954] Temp Heart Rate Resp BP 37.2 ??C (98.9 ??F) 92 22 88/64 SpO2 Temp Source Heart Rate Source Patient Position 95 % Oral -- -- BP Location FiO2 (%) -- -- Physical Exam Vitals and nursing note reviewed. Constitutional: General: She is not in acute distress. Appearance: She is well-developed. Interventions: Nasal cannula in place. HENT: Head: Normocephalic and atraumatic. Eyes: Conjunctiva/sclera: Conjunctivae normal. Pupils: Pupils are equal, round, and reactive to light. Cardiovascular: Rate and Rhythm: Normal rate and regular rhythm. Pulses: Normal pulses. Heart sounds: No murmur heard. Pulmonary: Effort: Pulmonary effort is normal. No respiratory distress. Breath sounds: Rales present. Abdominal: General: There is no distension. Palpations: Abdomen is soft. Tenderness: There is no abdominal tenderness. Musculoskeletal: General: No swelling. Cervical back: Neck supple. Skin: General: Skin is warm and dry. Capillary Refill: Capillary refill takes less than 2 seconds. Neurological: Mental Status: She is alert. Psychiatric: Mood and Affect: Mood normal. Tk Coma Scale Score: 15 ED Course & MDM - Assessment: 63 y.o. female presents to ED with complaint of dyspnea. It should be noted that the chronic conditions includes COPD, which currently is not at goal therapy. This complicates the clinical picture because it Comorbidities: complicates the clinical workup Differential Diagnosis: Pneumonia, COPD exacerbation, PE, sepsis, among others In order to fully explore the differential diagnosis the following treatments and tests were ordered: ED Medication Administration from 10/25/2024 0935 to 10/25/2024 1210 Date/Time Order Dose Route Action 10/25/2024 1032 EDT lactated Ringer's infusion 1,000 mL 1,000 mL Intravenous New Bag 10/25/2024 1034 EDT ipratropium-albuterol (Duo-Neb) 0.5-2.5 mg/3 mL nebulizer solution 9 mL 9 mL Nebulization Given 10/25/2024 1058 EDT iohexol (OMNIPaque) 350 MG/ML injection 100 mL 80 mL Intravenous Given All Other Orders Ordered Status Ordering Provider 10/25/24 1059 Troponin T, High Sensitivity, 2 Hour, Plasma PROCEDURE ONCE Ordered ESTUARDO SANTOS 10/25/24 1149 Consult to [facility] Once Specialty: Internal Medicine Provider: (Not yet assigned) Ordered ESTUARDO SANTOS 10/25/24 1149 ED to floor bed request Once Ordered ESTUARDO SANTOS 10/25/24 1025 POC Ultrasound - Bedside Once Comments: This order was created via procedure documentation Final result ESTUARDO SANTOS 10/25/24 1025 POC Ultrasound - Bedside Once Comments: This order was created via procedure documentation Final result ESTUARDO SANTOS 10/25/24 1020 Troponin now and 120 min STAT Final result ESTUARDO SANTOS 10/25/24 1020 BNP STAT Final result ESTUARDO SANTOS 10/25/[address] Angio Pulmonary Embolism Once In process ESTUARDO SANTOS 10/25/24 1020 Initiate contact isolation Continuous Comments: Added via Instant Order OPA Acknowledged BPA, INSTANT ORDERS 10/25/24 1020 Initiate droplet isolation Continuous Comments: Added via Instant Order OPA Acknowledged BPA, INSTANT ORDERS 10/25/24 1020 Initiate N95 isolation Continuous Comments: Added via Instant Order OPA Acknowledged BPA, INSTANT ORDERS 10/25/24 1020 Initiate eye protection Continuous Comments: Added via Instant Order OPA Acknowledged BPA, INSTANT ORDERS 10/25/24 1016 Blood gas panel, venous STAT Final result VARGAS ESTUARDO Len[place] 10/25/24 1016 Nasopharyngeal Respiratory Panel Once In process VARGAS ESTUARDO [place] 10/25/24 1016 SARS CoV-2/COVID-19 by PCR - Rapid Once In process ESTUARDO SANTOS 10/25/24 1016 Once Canceled ESTUARDO SANTOS 10/25/24 1016 CBC w/diff STAT Final result VARGAS ESTUARDO [place] 10/25/24 1016 BMP STAT Final result VARGAS ESTUARDO [place] 10/25/24 1016 Blood Culture (Aerobic/Anaerobet Set) STAT Acknowledged ESTUARDO SANTOS 10/25/24 1016 Blood Culture (Aerobic/Anaerobet Set) STAT Acknowledged VARGAS ESTUARDO [place] 10/25/24 1014 One time imaging Canceled DORIS CONTRERAS 10/25/24 0953 EKG now - STAT (adult) Once Preliminary result DORIS CONTRERAS ED Course as of 10/25/24 1333 Tue Oct 25, 2024 102 On initial evaluation, patient on 3 L nasal cannula, hypotensive with initial blood pressure of 88/64. 1 L lactated ringer bolus started. Given history of COPD, giving 3 duo neb treatments [RM] 1022 EKG now - STAT (adult) Encounter Date: 10/25/24 -EKG now - STAT (adult): Result Value EKG DIAGNOSIS CLASS Normal Ventricular Rate 88 Atrial Rate 88 NC Interval 130 QRSD Interval 78 QT Interval 350 QTC Interval 423 P Jasper 71 R Jasper 17 T Wave Jasper 44 Diagnosis Normal sinus rhythm Diagnosis Normal ECG *Note: Due to a large number of results and/or encounters for the requested time period, some results have not been displayed. A complete set of results can be found in Results Review. On my interpretation, Normal sinus rhythm. No obvious interval/segment abnormalities. No obvious acute ischemic findings such as ST segment elevation/depression, hyperacute T waves, etc. No delta waves, prolonged QT interval, deformities in leads V1/V2 suggestive of Brugada syndrome, or heightened QRS complexes suggestive of LVH. [RM] 1033 Blood gas panel, venous(!) Normal pH, normal anion gap, lactate slightly elevated [RM] 1038 CBC w/diff(!) Patient not neutropenic, hemoglobin decreased from one-week ago, not below transfusion threshold [RM] 1100 BMP(!) Not actionable [RM] 1100 BNP(!) Mild elevation [RM] 1138 CT Angio Pulmonary Embolism Significant for right upper lobe consolidation on my interpretation. Did not appreciate any obviouspulmonary embolism. Treating with broad-spectrum antibiotics. [RM] 1209 Hospital medicine consulted for admission [RM] 1212 SARS CoV-2/COVID-19 by PCR - Rapid [CB] ED Course User Index [CB] Doris Contreras MD [RM] Estuardo Santos MD Clinical Impressions as of 10/25/24 1333 Hypoxia Other fatigue Pneumonia of right upper lobe due to infectious organism Social Determinates of Health Risks (including Economic Stability, Education and level of understanding, Healthcare access and quality and concerning social factors): Lives far away Ultimately, this patient was Was admitted (Admission) The primary encounter diagnosis was Pneumonia of right upper lobe due to infectious organism. Diagnoses of Hypoxia and Other fatigue were also pertinent to this visit.. Patient believed to require admission for the listed diagnoses. The Internal Medicine service was consulted for admission and was agreeable to admit to Acute Floor (Med/Surg). ED Prescriptions None Disposition Admit - [1] Past Medical History: Diagnosis Date Brain tumor (CMS/HCC) Chemotherapy-induced nausea and vomiting 08/28/2023 Personal history of other diseases of the circulatory system History of essential hypertension Personal history of other diseases of the musculoskeletal system and connective tissue History of osteoarthritis Personal history of other endocrine, nutritional and metabolic disease History of type 2 diabetes mellitus [2] Past Surgical History: Procedure Laterality Date BRAIN SURGERY TUBAL LIGATION N/A Tubal Ligation from [facility] TYMPANOSTOMY TUBE PLACEMENT N/A Ear Surgery Eustachian Tube from [facility] [3] Family History Problem Relation Name Age of Onset No Known Problems Mother No Known Problems Father Diabetes Other Fibromyalgia Other [4] Tobacco Use Smoking status: Former Current packs/day: 0.00 Average packs/day: 1.5 packs/day for 48.4 years (72.6 ttl pk-yrs) Types: Cigarettes Start date: 1975 Quit date: 10/17/2023 Years since quittin.0 Smokeless tobacco: Never Vaping Use Vaping status: Never Used Substance Use Topics Alcohol use: No Drug use: Never [5] Allergies Allergen Reactions Cephalexin Other - please document in the comment field Patient states makes her feel tired Lisinopril Cough and Other - please document in the comment field Meloxicam Cough and Other - please document in the comment field Estuardo Santos MD Resident 10/25/24 1333 Cosigned by Doris Contreras MD at 10/26/2024 6:54 AM EDT Associated attestation - Doris Contreras MD - 10/26/2024 6:54 AM EDT I saw and evaluated the patient with the resident/fellow. I discussed the case with the resident/fellow and agree with the findings and plan as documented. * ED Triage Notes - Lisa Tovar RN - 10/25/2024 9:51 AM EDT Pt sent from clinic for SOA and possible recurrent PNA. Pt is currently on chemo, last treatment 10/17,3,4. Pt had radiation yesterday and was supposed to receive chemo today. Pt now requiring 3L NC and is typically on 2L. documented in this encounter Plan of Treatment Upcoming Encounters Date Type Department Care Team ([facility] st Contact Info) Description 11/29/2024 10:30 AM EDT Clinical Support [facility] [address] [place] [address] 11/29/2024 11:00 AM EDT Office Visit [facility] [address] [facility], [address]nd [place] [phone] Satnam Colvin MD [address] [facility] [address] [place] [phone] 11/29/2024 12:30 PM EDT Appointment [facility] [address] [place] [phone] 11/30/2024 1:30 PM EDT Appointment [facility] [address] [place] [phone] 12/01/2024 2:00 PM EDT Appointment [facility] [address] [place] [address] 12/06/2024 11:40 AM EDT Appointment [facility] Radiation [address] [id number] [place] [phone] Haven Blum, [employer] [address] [facility] [id number] [place] [address] 01/19/2025 9:30 AM EDT Appointment [facility] S Radiology [address], [address] [place] [phone] 01/19/2025 10:45 AM EDT Office Visit [place] [facility] [address], [address] [place] [address] Abhilash Bangura MD [address] [place] [address] 03/08/2025 1:00 PM EDT Office Visit [facility] [address] [place] [address] Teresita Oconnell MD [address] [place] [address] Scheduled Referrals Name Type Priority Associated Diagnoses Order Schedule Discharge Ambulatory referral to [facility] Outpatient Referral Routine Pneumonia of right upper lobe due to infectious organism 1 Occurrences starting 10/27/2024 until 04/30/2026 Ambulatory referral to External PCP Outpatient Referral Routine Pneumonia of right upper lobe due to infectious organism 1 Occurrences starting 10/31/2024 until 05/04/2026 documented as of this encounter Procedures Procedure Name Priority Date/Time Associated Diagnosis Comments POCT GLUCOSE METER UNSOLICITED RESULTS Routine 10/31/2024 4:36 PM EDT POCT GLUCOSE METER UNSOLICITED RESULTS Routine 10/31/2024 11:24 AM EDT WILBUR AURIS SURVEILLANCE BY PCR Pending Discharge 10/31/2024 10:43 AM EDT POCT GLUCOSE METER UNSOLICITED RESULTS Routine 10/31/2024 7:37 AM EDT POCT GLUCOSE METER UNSOLICITED RESULTS Routine 10/31/2024 3:49 AM EDT MORPHOLOGY Routine 10/31/2024 12:21 AM EDT MANUAL DIFFERENTIAL Routine 10/31/2024 1 2:21 AM EDT CBC WITH AUTO DIFFERENTIAL Routine 10/31/2024 12:21 AM EDT MAGNESIUM, PLASMA Routine 10/31/2024 12: 21 AM EDT BASIC METABOLIC PANEL, PLASMA Routine 10/31/2024 12:21 AM EDT POCT GLUCOSE METER UNSOLICITED RESULTS Routine 10/30/2024 7:02 PM EDT POCT GLUCOSE METER UNSOLICITED RESULTS Routine 10/30/2024 4:48 PM EDT POCT GLUCOSE METER UNSOLICITED RESULTS Routine 10/30/2024 11:23 AM EDT MAGNESIUM, PLASMA Routine 10/30/2024 8:3 5 AM EDT BASIC METABOLIC PANEL, PLASMA Routine 10/30/2024 8:35 AM EDT POCT GLUCOSE METER UNSOLICITED RESULTS Routine 10/30/2024 7:24 AM EDT POCT GLUCOSE METER UNSOLICITED RESULTS Routine 10/30/2024 3:08 AM EDT POCT GLUCOSE METER UNSOLICITED RESULTS Routine 10/29/2024 10:03 PM EDT POCT GLUCOSE METER UNSOLICITED RESULTS Routine 10/29/2024 4:43 PM EDT POCT GLUCOSE METER UNSOLICITED RESULTS Routine 10/29/2024 11:24 AM EDT POCT GLUCOSE METER UNSOLICITED RESULTS Routine 10/29/2024 7:35 AM EDT MAGNESIUM, PLASMA Routine 10/29/2024 3:0 3 AM EDT BASIC METABOLIC PANEL, PLASMA Routine 10/29/2024 3:03 AM EDT POCT GLUCOSE METER UNSOLICITED RESULTS Routine 10/29/2024 2:47 AM EDT POCT GLUCOSE METER UNSOLICITED RESULTS Routine 10/28/2024 8:57 PM EDT POCT GLUCOSE METER UNSOLICITED RESULTS Routine 10/28/2024 5:11 PM EDT POCT GLUCOSE METER UNSOLICITED RESULTS Routine 10/28/2024 11:28 AM EDT POCT GLUCOSE METER UNSOLICITED RESULTS Routine 10/28/2024 7:33 AM EDT POCT GLUCOSE METER UNSOLICITED RESULTS Routine 10/28/2024 3:06 AM EDT MAGNESIUM, PLASMA Routine 10/28/2024 3:0 0 AM EDT BASIC METABOLIC PANEL, PLASMA Routine 10/28/2024 3:00 AM EDT POCT GLUCOSE METER UNSOLICITED RESULTS Routine 10/27/2024 9:38 PM EDT POCT GLUCOSE METER UNSOLICITED RESULTS Routine 10/27/2024 4:51 PM EDT POCT GLUCOSE METER UNSOLICITED RESULTS Routine 10/27/2024 11:34 AM EDT POCT GLUCOSE METER UNSOLICITED RESULTS Routine 10/27/2024 7:30 AM EDT CBC WITH AUTO DIFFERENTIAL Routine 10/27/2024 4:04 AM EDT PHOSPHORUS, PLASMA Routine 10/27/2024 4: 04 AM EDT MAGNESIUM, PLASMA Routine 10/27/2024 4:0 4 AM EDT COMPREHENSIVE METABOLIC PANEL, PLASMA Routine 10/27/2024 4:04 AM EDT POCT GLUCOSE METER UNSOLICITED RESULTS Routine 10/27/2024 3:59 AM EDT POCT GLUCOSE METER UNSOLICITED RESULTS Routine 10/26/2024 7:52 PM EDT POCT GLUCOSE METER UNSOLICITED RESULTS Routine 10/26/2024 4:09 PM EDT INSERT PERIPHERAL IV STAT 10/26/2024 12:46 PM EDT POCT GLUCOSE METER UNSOLICITED RESULTS Routine 10/26/2024 10:57 AM EDT WOUND OSTOMY EVAL AND TREAT Routine 10/26/2024 8:15 AM EDT POCT GLUCOSE METER UNSOLICITED RESULTS Routine 10/26/2024 5:58 AM EDT STREPTOCOCCUS PNEUMONIAE AND LEGIONELLA URINARY ANTIGEN Routine 10/26/2024 5:37 AM EDT RESPIRATORY CULTURE AND GRAM STAIN Routine 10/26/2024 5:37 AM EDT BLOOD CULTURE (AEROBIC/ANAEROBIC SET) STAT 10/26/2024 3:03 AM EDT LACTATE, VENOUS Routine 10/26/2024 3:02 AM EDT CBC WITH AUTO DIFFERENTIAL Routine 10/26/2024 3:02 AM EDT PHOSPHORUS, PLASMA Routine 10/26/2024 3: 02 AM EDT MAGNESIUM, PLASMA Routine 10/26/2024 3:0 2 AM EDT COMPREHENSIVE METABOLIC PANEL, PLASMA Routine 10/26/2024 3:02 AM EDT POCT GLUCOSE METER UNSOLICITED RESULTS Routine 10/25/2024 9:25 PM EDT BLOOD CULTURE (AEROBIC/ANAEROBIC SET) STAT 10/25/2024 9:10 PM EDT ECG ADULT STAT 10/25/2024 8:35 PM EDT METHICILLIN RESISTANT STAPHYLOCOCCUS AUREUS (MRSA) BY PCR Routine 10/25/2024 6:32 PM EDT POCT GLUCOSE METER UNSOLICITED RESULTS Routine 10/25/2024 4:34 PM EDT TROPONIN T, HIGH SENSITIVITY, 2 HOUR, PLASMA Timed 10/25/2024 1:[address] ANGIO PULMONARY EMBOLISM STAT 10/25/2024 11:02 AM EDT SARS COV-2/COVID-19 BY PCR - RAPID STAT 10/25/2024 10:42 AM EDT NASOPHARYNGEAL RESPIRATORY PANEL STAT 10/25/2024 10:42 AM EDT TROPONIN T, HIGH SENSITIVITY, 0 HOUR, PLASMA, REFLEX TO 2 HOUR STAT 10/25/2024 10:28 AM EDT N-TERMINAL PROBNP, PLASMA STAT 10/25/2024 10:28 AM EDT CBC WITH AUTO DIFFERENTIAL STAT 10/25/2024 10:28 AM EDT BLOOD GAS PANEL, VENOUS STAT 10/25/2024 10:28 AM EDT BASIC METABOLIC PANEL, PLASMA STAT 10/25/2024 10:28 AM EDT ECG ADULT STAT 10/25/2024 10:12 AM EDT [facility] ED POCUS PROCDOC Routine 10/25/2024 9:51 AM EDT [facility] ED POCUS PROCDOC Routine 10/25/2024 9:51 AM EDT documented in this encounter Results * (ABNORMAL) POCT glucose meter (10/31/2024 4:36 PM EDT) [facility] POCT Glucose 110(H) 74 - 99 mg/dL 10/31/2024 4:38 PM EDT [facility] Comment:Accuracy of a glucos e result obtained from a capillary whole blood specimen relies upon adequate, non-compromised capillary blood flow. If the capillary glucose result is not consistent with the patient's clinical signs and symptoms, glucose testing should be repeated with either an arterial or venous sample on the glucometer or sent to the main labortory for testing. Comment 10/31/2024 4:38 PM EDT [facility] Craft Artist ID Maryanne Raines 10/31/2024 4:38 PM EDT [facility] Device ID [id number] 10/31/2024 4:38 PM EDT [facility] Specimen Type POC Capillary 10/31/2024 4:38 PM EDT [facility] Blood Capillary blood specimen / Unknown 10/31/2024 4:36 PM EDT 10/31/2024 4:38 PM EDT us Robert Amin MD LAB POINT OF CARE TE ST DOCKED DEVICE UNSOLICITED RESULTS Final Result Performing Organization Address City/[facility]/ZIP Co de Phone Number [facility] [address] [place] [address] * (ABNORMAL) POCT glucose meter (10/31/2024 11:24 AM EDT) [facility] POCT Glucose 302(H) 74 - 99 mg/dL 10/31/2024 11:25 AM EDT [facility] Comment:Accuracy of a glucos e result obtained from a capillary whole blood specimen relies upon adequate, non-compromised capillary blood flow. If the capillary glucose result is not consistent with the patient's clinical signs and symptoms, glucose testing should be repeated with either an arterial or venous sample on the glucometer or sent to the main labortory for testing. Comment 10/31/2024 11:25 AM EDT [facility] Craft Artist ID Maryanne Raines 10/31/2024 11:25 AM EDT [facility]ARE [facility] Device ID [id number] 10/31/2024 11:25 AM EDT [facility] Specimen Type POC Capillary 10/31/2024 11:25 AM EDT [facility] Blood Capillary blood specimen / Unknown 10/31/2024 11:24 AM EDT 10/31/2024 11:25 AM EDT us Robert Amin MD LAB POINT OF CARE TE ST DOCKED DEVICE UNSOLICITED RESULTS Final Result Performing Organization Address City/[facility]/ZIP Co de Phone Number [facility] [address] [place] [address] * Wilbur auris Surveillance by PCR (10/31/2024 10:43 AM EDT) [facility] Wilbur auris PCR Result Not Detected Not Detected 11/01/2024 1:30 PM EDT [facility] Swab (Axilla and Groin) Non-blood Collection / Unknown 10/31/2024 10:43 AM EDT 10/31/2024 11:27 AM EDT Narrative [facility] - 11/01/2024 1:30 PM EDT This PCR assay was developed and its performance characteristics determined by [facility] as appropriate for clinical purposes. This assay has not been cleared or approved by the FDA, but is performed in a CLIA regulated laboratory that is qualified to perform high-complexity testing. us Robert Amin MD LAB MICROBIOLOGY - GENERAL ORD ERABLES Final Result Performing Organization Address City/[facility]/ZIP Co de Phone Number [facility] [address] [place] [address] * (ABNORMAL) POCT glucose meter (10/31/2024 7:37 AM EDT) POCT Glucose 238(H) 74 - 99 mg/dL 10/31/2024 7:38 AM EDT [facility] Comment:Accuracy of a glucos e result obtained from a capillary whole blood specimen relies upon adequate, non-compromised capillary blood flow. If the capillary glucose result is not consistent with the patient's clinical signs and symptoms, glucose testing should be repeated with either an arterial or venous sample on the glucometer or sent to the main labortory for testing. Comment 10/31/2024 7:38 AM EDT [facility]ALTH[facility]ARE [facility] Craft Artist ID Maryanne Raines 10/31/2024 7:38 AM EDT HEALTHCARE LAB Device ID [id number] 10/31/2024 7:38 AM EDT [facility] Specimen Type POC Capillary 10/31/2024 7:38 AM EDT [facility] Blood Capillary blood specimen / Unknown 10/31/2024 7:37 AM EDT 10/31/2024 7:38 AM EDT us Robert Amin MD LAB POINT OF CARE TE ST DOCKED DEVICE UNSOLICITED RESULTS Final Result Performing Organization Address City/[facility]/ZIP Co de Phone Number [facility] [address] [place] [address] * (ABNORMAL) POCT glucose meter (10/31/2024 3:49 AM EDT) POCT Glucose 304(H) 74 - 99 mg/dL 10/31/2024 3:50 AM EDT [facility] Comment:Accuracy of a glucos e result obtained from a capillary whole blood specimen relies upon adequate, non-compromised capillary blood flow. If the capillary glucose result is not consistent with the patient's clinical signs and symptoms, glucose testing should be repeated with either an arterial or venous sample on the glucometer or sent to the main labortory for testing. Comment 10/31/2024 3:50 AM EDT [facility] Craft Artist ID Amanda Berman 3:50 AM EDT [facility]ARE [facility] Device ID [id number] 10/31/2024 3:50 AM EDT [facility] Specimen Type POC Capillary 10/31/2024 3:50 AM EDT [facility] Blood Capillary blood specimen / Unknown 10/31/2024 3:49 AM EDT 10/31/2024 3:50 AM EDT Robert Amin MD LAB POINT OF CARE TE ST DOCKED DEVICE UNSOLICITED RESULTS Final Result Performing Organization Address City/State/[facility] Co de Phone Number [facility] [address] [place] [address] * (ABNORMAL) Morphology (10/31/2024 12:21 AM EDT) [facility] RBC Fragments/Schist ocytes Slight(A) (none) LAB HEMATOLOGY METHOD 10/31/2024 2:12 AM EDT [facility] Polychromasia Slight LAB HEMATOLOGY METHOD 10/31/2024 2:12 AM EDT [facility] RBC Morphology Slide Reviewed LAB HEMATOLOGY METHOD 10/31/2024 2:12 AM EDT [facility] Teardrop Cells Present LAB HEMATOLOGY METHOD 10/31/2024 2:12 AM EDT [facility] Platelet Estimate Platelet smear estimate consistent with automated count LAB HEMATOLOGY METHOD 10/31/2024 2:12 AM EDT [facility] Blood Venous blood specimen / Unknown Venipuncture / Unknown 10/31/2024 12:21 AM EDT 10/31/2024 12:55 AM EDT us Robert Amin MD LAB BLOOD ORDERABLES Final Res ult [facility] [address] [place] [address] * (ABNORMAL) Manual Differential (10/31/2024 12:21 AM EDT) Blasts % 0 % LAB HEMATOLOGY METHOD 10/31/2024 2:12 AM EDT [facility] Promyelocytes % 0 % LAB HEMATOLOGY METHOD 10/31/2024 2:12 AM EDT [facility] Myelocytes % 3 % LAB HEMATOLOGY METHOD 10/31/2024 2:12 AM EDT [facility] Metamyelocytes % 3 % LAB HEMATOLOGY METHOD 10/31/2024 2:12 AM EDT [facility] Neutrophils % 84 % LAB HEMATOLOGY METHOD 10/31/2024 2:12 AM EDT [facility] Lymphocytes % 6 % LAB HEMATOLOGY METHOD 10/31/2024 2:12 AM EDT [facility] Reactive Lymphocytes % 0 % LAB HEMATOLOGY METHOD 10/31/2024 2:12 AM EDT [facility] Monocytes % 3 % LAB HEMATOLOGY METHOD 10/31/2024 2:12 AM EDT [facility] Eosinophils % 1 % LAB HEMATOLOGY METHOD 10/31/2024 2:12 AM EDT [facility] Basophils % 0 % LAB HEMATOLOGY METHOD 10/31/2024 2:12 AM EDT [facility] Blasts Absolute 0.00 10*3/UL LAB HEMATOLOGY METHOD 10/31/2024 2:12 AM EDT [facility] Promyelocytes Absolute 0.00 10*3/uL LAB HEMATOLOGY METHOD 10/31/2024 2:12 AM EDT [facility] Myelocytes Absolute 0.20 10*3/uL LAB HEMATOLOGY METHOD 10/31/2024 2:12 AM EDT [facility] Metamyelocytes Absolute 0.20 10*3/uL LAB HEMATOLOGY METHOD 10/31/2024 2:12 AM EDT [facility] Neutrophils Absolute 5.62 1.60 - 6.10 10*3/uL LAB HEMATOLOGY METHOD 10/31/2024 2:12 AM EDT [facility] Lymphocytes Absolute 0.40(L) 1.20 - 3.90 10*3/uL LAB HEMATOLOGY METHOD 10/31/2024 2:12 AM EDT [facility] Reactive Lymphocytes Absolute 0.00 10*3/uL LAB HEMATOLOGY METHOD 10/31/2024 2:12 AM EDT [facility] Monocytes Absolute 0.20(L) 0.30 - 0.90 10*3/uL LAB HEMATOLOGY METHOD 10/31/2024 2:12 AM EDT [facility] Eosinophils Absolute 0.07 0.00 - 0.50 10*3/uL LAB HEMATOLOGY METHOD 10/31/2024 2:12 AM EDT [facility] Basophils Absolute 0.00 0.00 - 0.10 10*3/uL LAB HEMATOLOGY METHOD 10/31/2024 2:12 AM EDT [facility] Blood Venous blood specimen / Unknown Venipuncture / Unknown 10/31/2024 12:21 AM EDT 10/31/2024 12:55 AM EDT us Robert Amin MD LAB BLOOD ORDERABLES Final Res ult [facility] [address] [place] [address] * (ABNORMAL) CBC and Differential (10/31/2024 12:21 AM EDT) WBC Count 6.69 3.70 - 10.30 10*3/uL LAB HEMATOLOGY METHOD 10/31/2024 2:13 AM EDT [facility] RBC Count 2.34(L) 3.90 - 5.20 10*6/uL LAB HEMATOLOGY METHOD 10/31/2024 2:13 AM EDT [facility] HGB 7.1(L) 11.2 - 15.7 g/dL LAB HEMATOLOGY METHOD 10/31/2024 2:13 AM EDT [facility] HCT 23.9(L) 34.0 - 45.0 % LAB HEMATOLOGY METHOD 10/31/2024 2:13 AM EDT [facility] Platelet Count 302 155 - 369 10*3/uL LAB HEMATOLOGY METHOD 10/31/2024 2:13 AM EDT [facility] MCV 102(H) 79 - 98 fL LAB HEMATOLOGY METHOD 10/31/2024 2:13 AM EDT [facility] Comment:Results inconsistent with previous lab findings. MCH 30.3 26.0 - 32.0 pg LAB HEMATOLOGY METHOD 10/31/2024 2:13 AM EDT [facility] MCHC 29.7(L) 30.7 - 35.5 g/dL LAB HEMATOLOGY METHOD 10/31/2024 2:13 AM EDT [facility] RDW 17.6(H) 11.5 - 14.5 % LAB HEMATOLOGY METHOD 10/31/2024 2:13 AM EDT [facility] MPV 10.0 8.8 - 12.5 fL LAB HEMATOLOGY METHOD 10/31/2024 2:13 AM EDT [facility] nRBC 7.0(H) <=0.0 per 100 WBCs LAB HEMATOLOGY METHOD 10/31/2024 2:13 AM EDT [facility] Differential Type Manual LAB HEMATOLOGY METHOD 10/31/2024 2:13 AM EDT [facility] Blood Venous blood specimen / Unknown Venipuncture / Unknown 10/31/2024 12:21 AM EDT 10/31/2024 12:55 AM EDT Narrative [facility] - 10/31/2024 2:13 AM EDT Therapeutic decision making should be [...] Granulocytes is no longer being reported. us Robert Amin MD LAB BLOOD ORDERABLES Final Res ult [facility] [address] [place] [address] * (ABNORMAL) Magnesium, Plasma (10/31/2024 12:21 AM EDT) Magnesium, Plasma 1.5(L) 1.9 - 2.4 mg/dL 10/31/2024 1:25 AM EDT [facility] Blood Venous blood specimen / Unknown Venipuncture / Unknown 10/31/2024 12:21 AM EDT 10/31/2024 12:55 AM EDT us Robert Amin MD LAB BLOOD ORDERABLES Final Res ult [facility] [address] [place] [address] * (ABNORMAL) Basic Metabolic Panel, Plasma (10/31/2024 12:21 AM EDT) Glucose, Plasma 337(H) 74 - 99 mg/dL 10/31/2024 1:24 AM EDT [facility] BUN, Plasma 15 8 - 23 mg/dL 10/31/2024 1:24 AM EDT [facility] Creatinine, Plasma 0.63 0.60 - 1.10 mg/dL 10/31/2024 1:24 AM EDT [facility] BUN/Creatinine Ratio 24 10/31/2024 1:24 AM EDT [facility] Sodium, Plasma 139 136 - 145 mmol/L 10/31/2024 1:24 AM EDT [facility] Potassium, Plasma 4.2 3.6 - 4.9 mmol/L 10/31/2024 1:24 AM EDT [facility] Chloride, Plasma 102 97 - 107 mmol/L 10/31/2024 1:24 AM EDT [facility] CO2, Plasma 25 22 - 29 mmol/L 10/31/2024 1:24 AM EDT [facility] Anion Gap 12 6 - 16 mmol/L 10/31/2024 1:24 AM EDT [facility] Total Calcium, Plasma 8.8(L) 8.9 - 10.2 mg/dL 10/31/2024 1:24 AM EDT [facility] eGFRcr 99.8 mL/min/1.7 3m*2 10/31/2024 1:24 AM EDT [facility] Comment:Reported eGFRcr in m L/min/1.73m2 is based the CKD-EPI 2020 equation that does not use a race coefficient. Blood Venous blood specimen / Unknown Venipuncture / Unknown 10/31/2024 12:21 AM EDT 10/31/2024 12:55 AM EDT us Robert Amin MD LAB BLOOD ORDERABLES Final Res ult Performing Organization Address City/[facility]/ZIP Co de Phone Number [facility] [address] [place] [address] * (ABNORMAL) POCT glucose meter (10/30/2024 7:02 PM EDT) POCT Glucose 361(H) 74 - 99 mg/dL 10/30/2024 7:04 PM EDT [facility] Comment:Accuracy of a glucos e result obtained from a capillary whole blood specimen relies upon adequate, non-compromised capillary blood flow. If the capillary glucose result is not consistent with the patient's clinical signs and symptoms, glucose testing should be repeated with either an arterial or venous sample on the glucometer or sent to the main labortory for testing. Comment 10/30/2024 7:04 PM EDT [facility] Craft Artist ID Amanda Berman 7:04 PM EDT [facility] Device ID [id number] 10/30/2024 7:04 PM EDT [facility] Specimen Type POC Capillary 10/30/2024 7:04 PM EDT [facility] Blood Capillary blood specimen / Unknown 10/30/2024 7:02 PM EDT 10/30/2024 7:04 PM EDT us Robert Amin MD LAB POINT OF CARE TE ST DOCKED DEVICE UNSOLICITED RESULTS Final Result Performing Organization Address City/[facility]/ZIP Co de Phone Number [facility] [address] [place] [address] * (ABNORMAL) POCT glucose meter (10/30/2024 4:48 PM EDT) [facility] POCT Glucose 235(H) 74 - 99 mg/dL 10/30/2024 4:50 PM EDT [facility] Comment:Accuracy of a glucos e result obtained from a capillary whole blood specimen relies upon adequate, non-compromised capillary blood flow. If the capillary glucose result is not consistent with the patient's clinical signs and symptoms, glucose testing should be repeated with either an arterial or venous sample on the glucometer or sent to the main labortory for testing. Comment 10/30/2024 4:50 PM EDT [facility] Craft Artist ID Maryanne Raines 10/30/2024 4:50 PM EDT [facility] Device ID [id number] 10/30/2024 4:50 PM EDT [facility] Specimen Type POC Capillary 10/30/2024 4:50 PM EDT [facility] Blood Capillary blood specimen / Unknown 10/30/2024 4:48 PM EDT 10/30/2024 4:50 PM EDT Robert Amin MD LAB POINT OF CARE TE ST DOCKED DEVICE UNSOLICITED RESULTS Final Result Performing Organization Address City/State/[facility] Co de Phone Number [facility] [address] [place] [address] * (ABNORMAL) POCT glucose meter (10/30/2024 11:23 AM EDT) [facility] POCT Glucose 397(H) 74 - 99 mg/dL 10/30/2024 11:24 AM EDT [facility] Comment:Accuracy of [...] to the main labortory for testing. Comment 10/30/2024 11:24 AM EDT [facility] Craft Artist ID Maryanne Raines 10/30/2024 11:24 AM EDT [facility] Device ID [id number] 10/30/2024 11:24 AM EDT [facility] Specimen Type POC Capillary 10/30/2024 11:24 AM EDT [facility] Blood Capillary blood specimen / Unknown 10/30/2024 11:23 AM EDT 10/30/2024 11:24 AM EDT Robert Amin MD LAB POINT OF CARE TE ST DOCKED DEVICE UNSOLICITED RESULTS Final Result Performing Organization Address [facility]/ZIP Co de Phone Number [facility] [address] [place] [address] * (ABNORMAL) Magnesium, Plasma (10/30/2024 8:35 AM EDT) Magnesium, Plasma 1.4(L) 1.9 - 2.4 mg/dL 10/30/2024 9:10 AM EDT [facility] Blood Venous blood specimen / Unknown Venipuncture / Unknown 10/30/2024 8:35 AM EDT 10/30/2024 8:41 AM EDT us Robert Amin MD LAB BLOOD ORDERABLES Final Res ult [facility] [address] [place] [address] * (ABNORMAL) Basic Metabolic Panel, Plasma (10/30/2024 8:35 AM EDT) Glucose, Plasma 347(H) 74 - 99 mg/dL 10/30/2024 9:10 AM EDT [facility] BUN, Plasma 11 8 - 23 mg/dL 10/30/2024 9:10 AM EDT [facility] Creatinine, Plasma 0.62 0.60 - 1.10 mg/dL 10/30/2024 9:10 AM EDT [facility] BUN/Creatinine Ratio 18 10/30/2024 9:10 AM EDT [facility] Sodium, Plasma 139 136 - 145 mmol/L 10/30/2024 9:10 AM EDT [facility] Potassium, Plasma 4.8 3.6 - 4.9 mmol/L 10/30/2024 9:10 AM EDT [facility] Chloride, Plasma 103 97 - 107 mmol/L 10/30/2024 9:10 AM EDT [facility] CO2, Plasma 27 22 - 29 mmol/L 10/30/2024 9:10 AM EDT [facility] Anion Gap 9 6 - 16 mmol/L 10/30/2024 9:10 AM EDT [facility] Total Calcium, Plasma 9.0 8.9 - 10.2 mg/dL 10/30/2024 9:10 AM EDT [facility] eGFRcr 100.2 mL/min/1.7 3m*2 10/30/2024 9:10 AM EDT [facility] Comment:Reported eGFRcr in m L/min/1.73m2 is based the CKD-EPI 2020 equation that does not use a race coefficient. Blood Venous blood specimen / Unknown Venipuncture / Unknown 10/30/2024 8:35 AM EDT 10/30/2024 8:41 AM EDT us Robert Amin MD LAB BLOOD ORDERABLES Final Res ult [facility] [address] [place] [address] * (ABNORMAL) POCT glucose meter (10/30/2024 7:24 AM EDT) [facility] POCT Glucose 307(H) 74 - 99 mg/dL 10/30/2024 7:26 AM EDT [facility] Comment:Accuracy of a glucos e result obtained from a capillary whole blood specimen relies upon adequate, non-compromised capillary blood flow. If the capillary glucose result is not consistent with the patient's clinical signs and symptoms, glucose testing should be repeated with either an arterial or venous sample on the glucometer or sent to the main labortory for testing. Comment 10/30/2024 7:26 AM EDT [facility] Craft Artist ID Maryanne Raines 10/30/2024 7:26 AM EDT [facility] Device ID [id number] 10/30/2024 7:26 AM EDT [facility] Specimen Type POC Capillary 10/30/2024 7:26 AM EDT [facility] Blood Capillary blood specimen / Unknown 10/30/2024 7:24 AM EDT 10/30/2024 7:26 AM EDT us Robert Amin MD LAB POINT OF CARE TE ST DOCKED DEVICE UNSOLICITED RESULTS Final Result Performing Organization Address [facility] de Phone Number [facility] [address] [place] [address] * (ABNORMAL) POCT glucose meter (10/30/2024 3:08 AM EDT) POCT Glucose 277(H) 74 - 99 mg/dL 10/30/2024 3:10 AM EDT [facility] Comment:Accuracy of [...] to the main labortory for testing. Comment 10/30/2024 3:10 AM EDT [facility] Craft Artist ID Edwin Gunter 10/31/19 3:10 AM EDT [facility] Device ID [id number] 10/30/2024 3:10 AM EDT [facility] Specimen Type POC Capillary 10/30/2024 3:10 AM EDT [facility] Blood Capillary blood specimen / Unknown 10/30/2024 3:08 AM EDT 10/30/2024 3:10 AM EDT us Robert Amin MD LAB POINT OF CARE TE ST DOCKED DEVICE UNSOLICITED RESULTS Final Result Performing Organization Address City/[facility] de Phone Number [facility] [address] [place] [address] * (ABNORMAL) POCT glucose meter (10/29/2024 10:03 PM EDT) POCT Glucose 297(H) 74 - 99 mg/dL 10/29/2024 10:04 PM EDT [facility] Comment:Accuracy of [...] to the main labortory for testing. Comment 10/29/2024 10:04 PM EDT [facility] Craft Artist ID Edwin Gunter 10/30/19 10:04 PM EDT [facility] Device ID [id number] 10/29/2024 10:04 PM EDT [facility] Specimen Type POC Capillary 10/29/2024 10:04 PM EDT [facility] Blood Capillary blood specimen / Unknown 10/29/2024 10:03 PM EDT 10/29/2024 10:04 PM EDT Robert Amin MD LAB POINT OF CARE TE ST DOCKED DEVICE UNSOLICITED RESULTS Final Result Performing Organization Address [facility] Co de Phone Number [facility] [address] [place] [address] * (ABNORMAL) POCT glucose meter (10/29/2024 4:43 PM EDT) POCT Glucose 267(H) 74 - 99 mg/dL 10/29/2024 4:45 PM EDT [facility] Comment:Accuracy of [...] to the main labortory for testing. Comment 10/29/2024 4:45 PM EDT [facility] Craft Artist ID Kasey Frausto 10/30/19 4:45 PM EDT [facility] Device ID [id number] 10/29/2024 4:45 PM EDT [facility] Specimen Type POC Capillary 10/29/2024 4:45 PM EDT [facility] Blood Capillary blood specimen / Unknown 10/29/2024 4:43 PM EDT 10/29/2024 4:45 PM EDT Robert Amin MD LAB POINT OF CARE TE ST DOCKED DEVICE UNSOLICITED RESULTS Final Result Performing Organization Address City/[facility] Co de Phone Number [facility] [address] [place] [address] * (ABNORMAL) POCT glucose meter (10/29/2024 11:24 AM EDT) [facility] POCT Glucose 248(H) 74 - 99 mg/dL 10/29/2024 11:26 AM EDT [facility] Comment:Accuracy of a glucos e result obtained from a capillary whole blood specimen relies upon adequate, non-compromised capillary blood flow. If the capillary glucose result is not consistent with the patient's clinical signs and symptoms, glucose testing should be repeated with either an arterial or venous sample on the glucometer or sent to the main labortory for testing. Comment 10/29/2024 11:26 AM EDT [facility] Craft Artist ID Kasey Frausto 10/30/19 11:26 AM EDT [facility] Device ID [id number] 10/29/2024 11:26 AM EDT [facility] Specimen Type POC Capillary 10/29/2024 11:26 AM EDT [facility] Blood Capillary blood specimen / Unknown 10/29/2024 11:24 AM EDT 10/29/2024 11:26 AM EDT Robert Amin MD LAB POINT OF CARE TE ST DOCKED DEVICE UNSOLICITED RESULTS Final Result [facility] [address] [place] [address] * (ABNORMAL) POCT glucose meter (10/29/2024 7:35 AM EDT) [facility] POCT Glucose 246(H) 74 - 99 mg/dL 10/29/2024 7:36 AM EDT [facility] Comment:Accuracy of [...] to the main labortory for testing. Comment 10/29/2024 7:36 AM EDT [facility] Craft Artist ID Kasey Frausto 10/30/19 7:36 AM EDT [facility] Device ID [id number] 10/29/2024 7:36 AM EDT [facility] Specimen Type POC Capillary 10/29/2024 7:36 AM EDT [facility] Blood Capillary blood specimen / Unknown 10/29/2024 7:35 AM EDT 10/29/2024 7:36 AM EDT us Robert Amin MD LAB POINT OF CARE TE ST DOCKED DEVICE UNSOLICITED RESULTS Final Result Performing Organization Address [facility]/ZIP Co de Phone Number [facility] [address] [place] [address] * (ABNORMAL) Magnesium, Plasma (10/29/2024 3:03 AM EDT) Magnesium, Plasma 1.8(L) 1.9 - 2.4 mg/dL 10/29/2024 3:49 AM EDT [facility] Blood Venous blood specimen / Unknown Venipuncture / Unknown 10/29/2024 3:03 AM EDT 10/29/2024 3:09 AM EDT us Robert Amin MD LAB BLOOD ORDERABLES Final Res ult Performing Organization Address City/[facility]/ZIP Co de Phone Number [facility] [address] [place] [address] * (ABNORMAL) Basic metabolic panel (10/29/2024 3:03 AM EDT) Glucose, Plasma 266(H) 74 - 99 mg/dL 10/29/2024 3:49 AM EDT [facility] BUN, Plasma 10 8 - 23 mg/dL 10/29/2024 3:49 AM EDT [facility] Creatinine, Plasma 0.66 0.60 - 1.10 mg/dL 10/29/2024 3:49 AM EDT [facility] BUN/Creatinine Ratio 15 10/29/2024 3:49 AM EDT [facility] Sodium, Plasma 145 136 - 145 mmol/L 10/29/2024 3:49 AM EDT [facility] Potassium, Plasma 4.8 3.6 - 4.9 mmol/L 10/29/2024 3:49 AM EDT [facility] Chloride, Plasma 109(H) 97 - 107 mmol/L 10/29/2024 3:49 AM EDT [facility] CO2, Plasma 25 22 - 29 mmol/L 10/29/2024 3:49 AM EDT [facility] Anion Gap 11 6 - 16 mmol/L 10/29/2024 3:49 AM EDT [facility] Total Calcium, Plasma 8.5(L) 8.9 - 10.2 mg/dL 10/29/2024 3:49 AM EDT [facility] eGFRcr 98.7 mL/min/1.7 3m*2 10/29/2024 3:49 AM EDT [facility] Comment:Reported eGFRcr in m L/min/1.73m2 is based the CKD-EPI 2020 equation that does not use a race coefficient. Blood Venous blood specimen / Unknown Venipuncture / Unknown 10/29/2024 3:03 AM EDT 10/29/2024 3:09 AM EDT us Robert Amin MD LAB BLOOD ORDERABLES Final Res ult [facility] [address] [place] [address] * (ABNORMAL) POCT glucose meter (10/29/2024 2:47 AM EDT) POCT Glucose 252(H) 74 - 99 mg/dL 10/29/2024 2:49 AM EDT [facility] Comment:Accuracy of a glucos e result obtained from a capillary whole blood specimen relies upon adequate, non-compromised capillary blood flow. If the capillary glucose result is not consistent with the patient's clinical signs and symptoms, glucose testing should be repeated with either an arterial or venous sample on the glucometer or sent to the main labortory for testing. Comment 10/29/2024 2:49 AM EDT [facility] Craft Artist ID Fang Lopez 10/29/2024 2:49 AM EDT [facility] Device ID [id number] 10/29/2024 2:49 AM EDT [facility] Specimen Type POC Capillary 10/29/2024 2:49 AM EDT [facility] Blood Capillary blood specimen / Unknown 10/29/2024 2:47 AM EDT 10/29/2024 2:49 AM EDT Robert Amin MD LAB POINT OF CARE TE ST DOCKED DEVICE UNSOLICITED RESULTS Final Result Performing Organization Address City/[facility]/ZIP Co de Phone Number [facility] [address] [place] [address] * (ABNORMAL) POCT glucose meter (10/28/2024 8:57 PM EDT) POCT Glucose 314(H) 74 - 99 mg/dL 10/28/2024 8:59 PM EDT [facility] Comment:Accuracy of [...] to the main labortory for testing. Comment 10/28/2024 8:59 PM EDT [facility] Craft Artist ID Abida Ken 10/28/2024 8:59 PM EDT [facility] Device ID [id number] 10/28/2024 8:59 PM EDT [facility] Specimen Type POC Capillary 10/28/2024 8:59 PM EDT [facility] Blood Capillary blood specimen / Unknown 10/28/2024 8:57 PM EDT 10/28/2024 8:59 PM EDT Robert Amin MD LAB POINT OF CARE TE ST DOCKED DEVICE UNSOLICITED RESULTS Final Result [facility] [address] [place] [address] * (ABNORMAL) POCT glucose meter (10/28/2024 5:11 PM EDT) POCT Glucose 340(H) 74 - 99 mg/dL 10/28/2024 5:13 PM EDT [facility] Comment:Accuracy of [...] to the main labortory for testing. Comment 10/28/2024 5:13 PM EDT [facility] Craft Artist ID Kasey Frausto 10/29/19 5:13 PM EDT [facility] Device ID [id number] 10/28/2024 5:13 PM EDT [facility] Specimen Type POC Capillary 10/28/2024 5:13 PM EDT [facility] Blood Capillary blood specimen / Unknown 10/28/2024 5:11 PM EDT 10/28/2024 5:13 PM EDT Robert Amin MD LAB POINT OF CARE TE ST DOCKED DEVICE UNSOLICITED RESULTS Final Result Performing Organization Address City/State/[facility] Co de Phone Number [facility] [address] [place] [address] * (ABNORMAL) POCT glucose meter (10/28/2024 11:28 AM EDT) [facility] POCT Glucose 261(H) 74 - 99 mg/dL 10/28/2024 11:29 AM EDT [facility] Comment:Accuracy of a glucos e result obtained from a capillary whole blood specimen relies upon adequate, non-compromised capillary blood flow. If the capillary glucose result is not consistent with the patient's clinical signs and symptoms, glucose testing should be repeated with either an arterial or venous sample on the glucometer or sent to the main labortory for testing. Comment 10/28/2024 11:29 AM EDT [facility] Craft Artist ID Kasey Frausto 10/29/19 11:29 AM EDT [facility] Device ID [id number] 10/28/2024 11:29 AM EDT [facility] Specimen Type POC Capillary 10/28/2024 11:29 AM EDT [facility] Blood Capillary blood specimen / Unknown 10/28/2024 11:28 AM EDT 10/28/2024 11:29 AM EDT us Robert Amin MD LAB POINT OF CARE TE ST DOCKED DEVICE UNSOLICITED RESULTS Final Result Performing Organization Address [facility] Co de Phone Number [facility] [address] [place] [address] * (ABNORMAL) POCT glucose meter (10/28/2024 7:33 AM EDT) Pathologist [facility] POCT Glucose 232(H) 74 - 99 mg/dL 10/28/2024 7:35 AM EDT [facility] Comment:Accuracy of a glucos e result obtained from a capillary whole blood specimen relies upon adequate, non-compromised capillary blood flow. If the capillary glucose result is not consistent with the patient's clinical signs and symptoms, glucose testing should be repeated with either an arterial or venous sample on the glucometer or sent to the main labortory for testing. Comment 10/28/2024 7:35 AM EDT [facility] Craft Artist ID [email or web address] colunga 10/29/19 7:35 AM EDT [facility] Device ID [id number] 10/28/2024 7:35 AM EDT [facility] Specimen Type POC Capillary 10/28/2024 7:35 AM EDT [facility] Blood Capillary blood specimen / Unknown 10/28/2024 7:33 AM EDT 10/28/2024 7:35 AM EDT us Robert Amin MD LAB POINT OF CARE TE ST DOCKED DEVICE UNSOLICITED RESULTS Final Result Performing Organization Address [facility] Co de Phone Number [facility] [address] [place] [address] * (ABNORMAL) POCT glucose meter (10/28/2024 3:06 AM EDT) Pathologist [facility] POCT Glucose 292(H) 74 - 99 mg/dL 10/28/2024 3:09 AM EDT [facility] Comment:Accuracy of a glucos e result obtained from a capillary whole blood specimen relies upon adequate, non-compromised capillary blood flow. If the capillary glucose result is not consistent with the patient's clinical signs and symptoms, glucose testing should be repeated with either an arterial or venous sample on the glucometer or sent to the main labortory for testing. Comment 10/28/2024 3:09 AM EDT [facility] Craft Artist ID Abida Ken 10/28/2024 3:09 AM EDT [facility] Device ID [id number] 10/28/2024 3:09 AM EDT [facility] Specimen Type POC Capillary 10/28/2024 3:09 AM EDT [facility] Blood Capillary blood specimen / Unknown 10/28/2024 3:06 AM EDT 10/28/2024 3:09 AM EDT us Robert Amin MD LAB POINT OF CARE TE ST DOCKED DEVICE UNSOLICITED RESULTS Final Result Performing Organization Address City/[facility]/ZIP Co de Phone Number [facility] [address] [place] [address] * (ABNORMAL) Magnesium, Plasma (10/28/2024 3:00 AM EDT) Magnesium, Plasma 1.8(L) 1.9 - 2.4 mg/dL 10/28/2024 3:47 AM EDT [facility] Blood Venous blood specimen / Unknown Venipuncture / Unknown 10/28/2024 3:00 AM EDT 10/28/2024 3:19 AM EDT us Robert Amin MD LAB BLOOD ORDERABLES Final Res ult [facility] [address] [place] [address] * (ABNORMAL) Basic metabolic panel (10/28/2024 3:00 AM EDT) Glucose, Plasma 315(H) 74 - 99 mg/dL 10/28/2024 3:47 AM EDT [facility] BUN, Plasma 10 8 - 23 mg/dL 10/28/2024 3:47 AM EDT [facility] Creatinine, Plasma 0.71 0.60 - 1.10 mg/dL 10/28/2024 3:47 AM EDT [facility] BUN/Creatinine Ratio 14 10/28/2024 3:47 AM EDT [facility] Sodium, Plasma 142 136 - 145 mmol/L 10/28/2024 3:47 AM EDT [facility] Potassium, Plasma 4.0 3.6 - 4.9 mmol/L 10/28/2024 3:47 AM EDT [facility] Chloride, Plasma 107 97 - 107 mmol/L 10/28/2024 3:47 AM EDT [facility] CO2, Plasma 27 22 - 29 mmol/L 10/28/2024 3:47 AM EDT [facility] Anion Gap 8 6 - 16 mmol/L 10/28/2024 3:47 AM EDT [facility] Total Calcium, Plasma 8.2(L) 8.9 - 10.2 mg/dL 10/28/2024 3:47 AM EDT [facility] eGFRcr 95.7 mL/min/1.7 3m*2 10/28/2024 3:47 AM EDT [facility] Comment:Reported eGFRcr in m L/min/1.73m2 is based the CKD-EPI 2020 equation that does not use a race coefficient. Blood Venous blood specimen / Unknown Venipuncture / Unknown 10/28/2024 3:00 AM EDT 10/28/2024 3:19 AM EDT us Robert Amin MD LAB BLOOD ORDERABLES Final Res ult [facility] [address] [place] [address] * (ABNORMAL) POCT glucose meter (10/27/2024 9:38 PM EDT) POCT Glucose 294(H) 74 - 99 mg/dL 10/27/2024 9:40 PM EDT [facility] Comment:Accuracy of [...] to the main labortory for testing. Comment 10/27/2024 9:40 PM EDT [facility] Craft Artist ID Abida Ken 10/27/2024 9:40 PM EDT [facility] Device ID [id number] 10/27/2024 9:40 PM EDT [facility] Specimen Type POC Capillary 10/27/2024 9:40 PM EDT [facility] Blood Capillary blood specimen / Unknown 10/27/2024 9:38 PM EDT 10/27/2024 9:40 PM EDT Robert Amin MD LAB POINT OF CARE TE ST DOCKED DEVICE UNSOLICITED RESULTS Final Result Performing Organization Address City/[facility]/ZIP Co de Phone Number [facility] [address] [place] [address] * (ABNORMAL) POCT glucose meter (10/27/2024 4:51 PM EDT) POCT Glucose 236(H) 74 - 99 mg/dL 10/27/2024 4:53 PM EDT [facility] Comment:Accuracy of [...] to the main labortory for testing. Comment 10/27/2024 4:53 PM EDT [facility] Craft Artist ID Sarina Tyson 10/27/2024 4:53 PM EDT [facility] Device ID [id number] 10/27/2024 4:53 PM EDT [facility] Specimen Type POC Capillary 10/27/2024 4:53 PM EDT [facility] Blood Capillary blood specimen / Unknown 10/27/2024 4:51 PM EDT 10/27/2024 4:53 PM EDT Robert Amin MD LAB POINT OF CARE TE ST DOCKED DEVICE UNSOLICITED RESULTS Final Result Performing Organization Address City/[facility]/ZIP Co de Phone Number [facility] [address] [place] [address] * (ABNORMAL) POCT glucose meter (10/27/2024 11:34 AM EDT) POCT Glucose 403(H) 74 - 99 mg/dL 10/27/2024 11:36 AM EDT [facility] Comment:Accuracy of [...] to the main labortory for testing. Comment 10/27/2024 11:36 AM EDT [facility] Craft Artist ID Sarina Tyson 10/27/2024 11:36 AM EDT [facility] Device ID [id number] 10/27/2024 11:36 AM EDT [facility] Specimen Type POC Capillary 10/27/2024 11:36 AM EDT [facility] Blood Capillary blood specimen / Unknown 10/27/2024 11:34 AM EDT 10/27/2024 11:36 AM EDT Robert Amin MD LAB POINT OF CARE TE ST DOCKED DEVICE UNSOLICITED RESULTS Final Result Performing Organization Address City/State/[facility] Co de Phone Number [facility] [address] [place] [address] * (ABNORMAL) POCT glucose meter (10/27/2024 7:30 AM EDT) [facility] POCT Glucose 216(H) 74 - 99 mg/dL 10/27/2024 7:31 AM EDT [facility] Comment:Accuracy of [...] to the main labortory for testing. Comment 10/27/2024 7:31 AM EDT [facility] Craft Artist ID Sarina Tyson 10/27/2024 7:31 AM EDT [facility] Device ID [id number] 10/27/2024 7:31 AM EDT [facility] Specimen Type POC Capillary 10/27/2024 7:31 AM EDT [facility] Blood Capillary blood specimen / Unknown 10/27/2024 7:30 AM EDT 10/27/2024 7:31 AM EDT us Robert Amin MD LAB POINT OF CARE TE ST DOCKED DEVICE UNSOLICITED RESULTS Final Result Performing Organization Address City/[facility]/ZIP Co de Phone Number [facility] [address] [place] [address] * (ABNORMAL) Phosphorus (10/27/2024 4:04 AM EDT) Phosphorus, Plasma 2.4(L) 2.5 - 4.5 mg/dL 10/27/2024 5:08 AM EDT [facility] Blood Venous blood specimen / Unknown Venipuncture / Unknown 10/27/2024 4:04 AM EDT 10/27/2024 4:38 AM EDT us Robert Amin MD LAB BLOOD ORDERABLES Final Res ult Performing Organization Address [facility]/ZIP Co de Phone Number [facility] [address] [place] [address] * (ABNORMAL) Magnesium, Plasma (10/27/2024 4:04 AM EDT) Magnesium, Plasma 2.5(H) 1.9 - 2.4 mg/dL 10/27/2024 5:08 AM EDT [facility] Blood Venous blood specimen / Unknown Venipuncture / Unknown 10/27/2024 4:04 AM EDT 10/27/2024 4:38 AM EDT us Robert Amin MD LAB BLOOD ORDERABLES Final Res ult [facility] [address] [place] [address] * (ABNORMAL) Comprehensive metabolic panel (10/27/2024 4:04 AM EDT) Glucose, Plasma 226(H) 74 - 99 mg/dL 10/27/2024 5:08 AM EDT [facility] BUN, Plasma 7(L) 8 - 23 mg/dL 10/27/2024 5:08 AM EDT [facility] Creatinine, Plasma 0.70 0.60 - 1.10 mg/dL 10/27/2024 5:08 AM EDT [facility] BUN/Creatinine Ratio 10 10/27/2024 5:08 AM EDT [facility] Sodium, Plasma 141 136 - 145 mmol/L 10/27/2024 5:08 AM EDT [facility] Potassium, Plasma 4.5 3.6 - 4.9 mmol/L 10/27/2024 5:08 AM EDT [facility] Chloride, Plasma 104 97 - 107 mmol/L 10/27/2024 5:08 AM EDT [facility] CO2, Plasma 29 22 - 29 mmol/L 10/27/2024 5:08 AM EDT [facility] Anion Gap 8 6 - 16 mmol/L 10/27/2024 5:08 AM EDT [facility] Total Calcium, Plasma 8.3(L) 8.9 - 10.2 mg/dL 10/27/2024 5:08 AM EDT [facility] Total Protein 6.4 6.3 - 7.9 g/dL 10/27/2024 5:08 AM EDT [facility] Albumin, Plasma 3.1(L) 3.5 - 5.2 g/dL 10/27/2024 5:08 AM EDT [facility] AST, Plasma 22 10 - 35 U/L 10/27/2024 5:08 AM EDT [facility] ALT, Plasma 28 10 - 35 U/L 10/27/2024 5:08 AM EDT [facility] Alkaline Phosphatase, Plasma 95 46 - 142 U/L 10/27/2024 5:08 AM EDT [facility] Total Bilirubin, Plasma 0.5 0.2 - 1.1 mg/dL 10/27/2024 5:08 AM EDT [facility] eGFRcr 97.3 mL/min/1.7 3m*2 10/27/2024 5:08 AM EDT [facility] Comment:Reported eGFRcr in m L/min/1.73m2 is based the CKD-EPI 2020 equation that does not use a race coefficient. Blood Venous blood specimen / Unknown Venipuncture / Unknown 10/27/2024 4:04 AM EDT 10/27/2024 4:38 AM EDT us Robert Amin MD LAB BLOOD ORDERABLES Final Res ult [facility] [address] [place] [address] * (ABNORMAL) CBC and Differential (10/27/2024 4:04 AM EDT) WBC Count 4.25 3.70 - 10.30 10*3/uL LAB HEMATOLOGY METHOD 10/27/2024 4:31 AM EDT [facility] RBC Count 2.37(L) 3.90 - 5.20 10*6/uL LAB HEMATOLOGY METHOD 10/27/2024 4:31 AM EDT [facility] HGB 7.0(L) 11.2 - 15.7 g/dL LAB HEMATOLOGY METHOD 10/27/2024 4:31 AM EDT [facility] HCT 23.0(L) 34.0 - 45.0 % LAB HEMATOLOGY METHOD 10/27/2024 4:31 AM EDT [facility] Platelet Count 221 155 - 369 10*3/uL LAB HEMATOLOGY METHOD 10/27/2024 4:31 AM EDT [facility] MCV 97 79 - 98 fL LAB HEMATOLOGY METHOD 10/27/2024 4:31 AM EDT [facility] MCH 29.5 26.0 - 32.0 pg LAB HEMATOLOGY METHOD 10/27/2024 4:31 AM EDT [facility] MCHC 30.4(L) 30.7 - 35.5 g/dL LAB HEMATOLOGY METHOD 10/27/2024 4:31 AM EDT [facility] RDW 15.8(H) 11.5 - 14.5 % LAB HEMATOLOGY METHOD 10/27/2024 4:31 AM EDT [facility] MPV 10.0 8.8 - 12.5 fL LAB HEMATOLOGY METHOD 10/27/2024 4:31 AM EDT [facility] nRBC 1.6(H) <=0.0 per 100 WBCs LAB HEMATOLOGY METHOD 10/27/2024 4:31 AM EDT [facility] Differential Type Automated LAB HEMATOLOGY METHOD 10/27/2024 4:31 AM EDT [facility] Neutrophils % 74 % LAB HEMATOLOGY METHOD 10/27/2024 4:31 AM EDT [facility] Lymphocytes % 13 % LAB HEMATOLOGY METHOD 10/27/2024 4:31 AM EDT [facility] Monocytes % 5 % LAB HEMATOLOGY METHOD 10/27/2024 4:31 AM EDT [facility] Eosinophils % 0 % LAB HEMATOLOGY METHOD 10/27/2024 4:31 AM EDT [facility] Basophils % 1 % LAB HEMATOLOGY METHOD 10/27/2024 4:31 AM EDT [facility] Immature Granulocytes % 7 % LAB HEMATOLOGY METHOD 10/27/2024 4:31 AM EDT [facility] Neutrophils Absolute 3.19 1.60 - 6.10 10*3/uL LAB HEMATOLOGY METHOD 10/27/2024 4:31 AM EDT [facility] Lymphocytes Absolute 0.54(L) 1.20 - 3.90 10*3/uL LAB HEMATOLOGY METHOD 10/27/2024 4:31 AM EDT [facility] Monocytes Absolute 0.21(L) 0.30 - 0.90 10*3/uL LAB HEMATOLOGY METHOD 10/27/2024 4:31 AM EDT [facility] Eosinophils Absolute 0.00 0.00 - 0.50 10*3/uL LAB HEMATOLOGY METHOD 10/27/2024 4:31 AM EDT [facility] Basophils Absolute 0.03 0.00 - 0.10 10*3/uL LAB HEMATOLOGY METHOD 10/27/2024 4:31 AM EDT [facility] Immature Granulocytes Absolute 0.28(H) 0.00 - 0.06 10*3/uL LAB HEMATOLOGY METHOD 10/27/2024 4:31 AM EDT [facility] Blood Venous blood specimen / Unknown Venipuncture / Unknown 10/27/2024 4:04 AM EDT 10/27/2024 4:27 AM EDT [facility] - 10/27/2024 4:31 AM EDT Therapeutic decision making should be based on absolute values, rather than percentages. us Robert Amin MD LAB BLOOD ORDERABLES Final Res ult [facility] [address] [place] [address] * (ABNORMAL) POCT glucose meter (10/27/2024 3:59 AM EDT) [facility] POCT Glucose 204(H) 74 - 99 mg/dL 10/27/2024 4:01 AM EDT [facility] Comment:Accuracy of a glucos e result obtained from a capillary whole blood specimen relies upon adequate, non-compromised capillary blood flow. If the capillary glucose result is not consistent with the patient's clinical signs and symptoms, glucose testing should be repeated with either an arterial or venous sample on the glucometer or sent to the main labortory for testing. Comment 10/27/2024 4:01 AM EDT [facility] Craft Artist ID Zhane Veliz 10/27/2024 4:01 AM EDT [facility] Device ID [id number] 10/27/2024 4:01 AM EDT [facility] Specimen Type POC Capillary 10/27/2024 4:01 AM EDT [facility] Blood Capillary blood specimen / Unknown 10/27/2024 3:59 AM EDT 10/27/2024 4:01 AM EDT Robert Amin MD LAB POINT OF CARE TE ST DOCKED DEVICE UNSOLICITED RESULTS Final Result Performing Organization Address [facility] Co de Phone Number [facility] [address] [place] [address] * (ABNORMAL) POCT glucose meter (10/26/2024 7:52 PM EDT) [facility] POCT Glucose 321(H) 74 - 99 mg/dL 10/26/2024 7:57 PM EDT [facility] Comment:Accuracy of [...] to the main labortory for testing. Comment 10/26/2024 7:57 PM EDT [facility] Craft Artist ID Rupa Leyva 10/26/2024 7:57 PM EDT [facility] LAB Device ID [id number] 10/26/2024 7:57 PM EDT [facility] Specimen Type POC Capillary 10/26/2024 7:57 PM EDT [facility] Blood Capillary blood specimen / Unknown 10/26/2024 7:52 PM EDT 10/26/2024 7:57 PM EDT us Robert Amin MD LAB POINT OF CARE TE ST DOCKED DEVICE UNSOLICITED RESULTS Final Result Performing Organization Address City/[facility] Co de Phone Number [facility] [address] [place] [address] * (ABNORMAL) POCT glucose meter (10/26/2024 4:09 PM EDT) [facility] POCT Glucose 290(H) 74 - 99 mg/dL 10/26/2024 4:11 PM EDT [facility] Comment:Accuracy of [...] to the main labortory for testing. Comment 10/26/2024 4:11 PM EDT [facility] Craft Artist ID Nkechi Duff 025 4:11 PM EDT [facility] LAB Device ID [id number] 10/26/2024 4:11 PM EDT [facility] Specimen Type POC Capillary 10/26/2024 4:11 PM EDT [facility] Blood Capillary blood specimen / Unknown 10/26/2024 4:09 PM EDT 10/26/2024 4:11 PM EDT us Robert Amin MD LAB POINT OF CARE TE ST DOCKED DEVICE UNSOLICITED RESULTS Final Result Performing Organization Address City/[facility]/ZIP Co de Phone Number [facility] [address] [place] [address] * PERIPHERAL IV (SMARTFORM LINK) (10/26/2024 12:46 PM EDT) Narrative Dayana River RN - 10/26/2024 12:46 PM EDT Dayana River RN 10/26/2024 12:46 PM Insert peripheral IV Performed by: Dayana River RN Authorized by: Robert Amin MD Hand hygiene: Hand hygiene performed prior to insertion Inserted using aseptic techniques: Yes Preparation: Skin prepped with chg Orientation: Left Location: Forearm Catheter placed: Peripheral IV Catheter size: 20g/2.00in Line Technique: Ultrasound Guidance Number of attempts: 1 IV flushes: Without difficulty and positive blood return noted and IV luer locked Patient tolerance: Patient tolerated the procedure well, age appropriate response and there were no complications IV site covered with: Transparent semipermeable dressing Education provided to: Patient us Robert Amin MD IV THERAPY ORDERABLES Final Re sult * (ABNORMAL) POCT glucose meter (10/26/2024 10:57 AM EDT) [facility] POCT Glucose 175(H) 74 - 99 mg/dL 10/26/2024 10:59 AM EDT [facility] Comment:Accuracy of a glucos e result obtained from a capillary whole blood specimen relies upon adequate, non-compromised capillary blood flow. If the capillary glucose result is not consistent with the patient's clinical signs and symptoms, glucose testing should be repeated with either an arterial or venous sample on the glucometer or sent to the main labortory for testing. Comment 10/26/2024 10:59 AM EDT [facility] Craft Artist ID Nkechi Duff 025 10:59 AM EDT [facility] Device ID [id number] 10/26/2024 10:59 AM EDT [facility] Specimen Type POC Capillary 10/26/2024 10:59 AM EDT [facility] Blood Capillary blood specimen / Unknown 10/26/2024 10:57 AM EDT 10/26/2024 10:59 AM EDT us Robert Amin MD LAB POINT OF CARE TE ST DOCKED DEVICE UNSOLICITED RESULTS Final Result [facility] [address] [place] [address] * (ABNORMAL) POCT glucose meter (10/26/2024 5:58 AM EDT) Pathologist [facility] POCT Glucose 142(H) 74 - 99 mg/dL 10/26/2024 6:00 AM EDT [facility] Comment:Accuracy of a glucos e result obtained from a capillary whole blood specimen relies upon adequate, non-compromised capillary blood flow. If the capillary glucose result is not consistent with the patient's clinical signs and symptoms, glucose testing should be repeated with either an arterial or venous sample on the glucometer or sent to the main labortory for testing. Comment 10/26/2024 6:00 AM EDT [facility] Craft Artist ID Heena Ornelas 10/27/19 6:00 AM EDT [facility] LAB Device ID [id number] 10/26/2024 6:00 AM EDT [facility] Specimen Type POC Capillary 10/26/2024 6:00 AM EDT [facility] Blood Capillary blood specimen / Unknown 10/26/2024 5:58 AM EDT 10/26/2024 6:00 AM EDT Robert Amin MD LAB POINT OF CARE TE ST DOCKED DEVICE UNSOLICITED RESULTS Final Result Performing Organization Address City/[facility]/ZIP Co de Phone Number [facility] [address] [place] [address] * Streptococcus pneumoniae and Legionella Urinary Antigen (10/26/2024 5:37 AM EDT) [facility] Legionella pneumophila serogroup 1 Antigen Result (Urine) Negative Negative 10/26/2024 7:43 AM EDT [facility] Streptococcus pneumoniae Antigen Result (Urine) Negative Negative 10/26/2024 7:43 AM EDT [facility] Urine Urine specimen obtained by clean catch procedure / Unknown Non-blood Collection / Unknown 10/26/2024 5:37 AM EDT 10/26/2024 6:19 AM EDT Robert Amin MD LAB MICROBIOLOGY - GENERAL ORD ERABLES Final Result [facility] [address] [place] [address] * (ABNORMAL) Respiratory Culture and Gram Stain (10/26/2024 5:37 AM EDT) Culture Light Growth 10/31/2024 12:21 PM EDT [facility] Culture Pseudomonas aeruginosa MDR, DEMOLITION ENGINEER(AA) DONAVAN 10/31/2024 12:21 PM EDT [facility] Comment: This isolate has been identified using the FDA Approved [employer] [place] System Tobramycin no longer reported. If needed for treatment, please order as addon. The organism value for this result has been updated. These results have been appended to the previously preliminary verified report. This is a corrected result. Previous organism was Non-Fermenting Gram Negative Bruno on 10/28/2024 at 1203 EDT. Edited result: Previously reported as Pseudomonas aeruginosa on 10/30/2024 at 0814 EDT. Gram Stain Result Greater than 25 WBC/LPF(A) 10/31/2024 12:21 PM EDT [facility] Gram Stain Result Greater than 10 Epithelial cells/LPF(A) 10/31/2024 12:21 PM EDT [facility] Gram Stain Result Few Gram negative rods(A) 10/31/2024 12:21 PM EDT [facility] Gram Stain Result Rare Budding yeast(A) 10/31/2024 12:21 PM EDT [facility] Gram Stain Result Few Gram positive rods(A) 10/31/2024 12:21 PM EDT [facility] Gram Stain Result Rare Gram positive cocci in clusters(A) 10/31/2024 12:21 PM EDT [facility] Sputum Coughed sputum specimen / Unknown Non-blood Collection / Unknown 10/26/2024 5:37 AM EDT 10/26/2024 6:19 AM EDT Narrative Organism Antibiotic Method Susceptibility Pseudomonas aeruginosa MDR, DEMOLITION ENGINEER Aztreonam DONAVAN 8 ug/ml: Susceptible Pseudomonas aeruginosa MDR, DEMOLITION ENGINEER Cefepime DONAVAN 16 ug/ml: Resistant Pseudomonas aeruginosa MDR, DEMOLITION ENGINEER Levofloxacin DONAVAN >4 ug/ml: Resistant Pseudomonas aeruginosa MDR, DEMOLITION ENGINEER Piperacillin/Tazobactam DONAVAN 64/4 ug/ml: Intermediate Pseudomonas aeruginosa MDR, DEMOLITION ENGINEER Meropenem ETEST 32.0 ug/ml: Resistant Comment:The previously repor samaria component Tobramycin is no longer being reported. us Robert Amin MD LAB MICROBIOLOGY - GENERAL ORD ERABLES Edited Result - Final Performing Organization Address [facility] [place] [address] * Blood Culture (Aerobic/Anaerobet Set) (10/26/2024 3:03 AM EDT) Culture No growth at day 5 10/31/2024 5:01 AM EDT [facility] Blood Structure of left hand / Unknown Venipuncture / Unknown 10/26/2024 3:03 AM EDT 10/26/2024 4:58 AM EDT us Doris Contreras MD LAB MICROBIOLOGY - GENE RAL ORDERABLES Final Result Performing Organization Address [facility] [place] [address] * Phosphorus (10/26/2024 3:02 AM EDT) Phosphorus, Plasma 3.7 2.5 - 4.5 mg/dL 10/26/2024 3:47 AM EDT [facility] Blood Venous blood specimen / Unknown Venipuncture / Unknown 10/26/2024 3:02 AM EDT 10/26/2024 3:13 AM EDT us Robert Amin MD LAB BLOOD ORDERABLES Final Res ult Performing Organization Address [facility] Co de Phone Number [facility] [address] [place] [address] * (ABNORMAL) Magnesium, Plasma (10/26/2024 3:02 AM EDT) Magnesium, Plasma 1.2(L) 1.9 - 2.4 mg/dL 10/26/2024 3:47 AM EDT [facility] Blood Venous blood specimen / Unknown Venipuncture / Unknown 10/26/2024 3:02 AM EDT 10/26/2024 3:13 AM EDT us Robert Amin MD LAB BLOOD ORDERABLES Final Res ult [facility] [address] [place] [address] * (ABNORMAL) Comprehensive metabolic panel (10/26/2024 3:02 AM EDT) Glucose, Plasma 175(H) 74 - 99 mg/dL 10/26/2024 3:47 AM EDT [facility] BUN, Plasma 9 8 - 23 mg/dL 10/26/2024 3:47 AM EDT [facility] Creatinine, Plasma 0.88 0.60 - 1.10 mg/dL 10/26/2024 3:47 AM EDT [facility] BUN/Creatinine Ratio 10 10/26/2024 3:47 AM EDT [facility] Sodium, Plasma 140 136 - 145 mmol/L 10/26/2024 3:47 AM EDT [facility] Potassium, Plasma 3.6 3.6 - 4.9 mmol/L 10/26/2024 3:47 AM EDT [facility] Chloride, Plasma 100 97 - 107 mmol/L 10/26/2024 3:47 AM EDT [facility] CO2, Plasma 29 22 - 29 mmol/L 10/26/2024 3:47 AM EDT [facility] Anion Gap 11 6 - 16 mmol/L 10/26/2024 3:47 AM EDT [facility] Total Calcium, Plasma 8.1(L) 8.9 - 10.2 mg/dL 10/26/2024 3:47 AM EDT [facility] Total Protein 6.1(L) 6.3 - 7.9 g/dL 10/26/2024 3:47 AM EDT [facility] Albumin, Plasma 2.9(L) 3.5 - 5.2 g/dL 10/26/2024 3:47 AM EDT [facility] AST, Plasma 21 10 - 35 U/L 10/26/2024 3:47 AM EDT [facility] ALT, Plasma 24 10 - 35 U/L 10/26/2024 3:47 AM EDT [facility] Alkaline Phosphatase, Plasma 90 46 - 142 U/L 10/26/2024 3:47 AM EDT [facility] Total Bilirubin, Plasma 0.6 0.2 - 1.1 mg/dL 10/26/2024 3:47 AM EDT [facility] eGFRcr 73.9 mL/min/1.7 3m*2 10/26/2024 3:47 AM EDT [facility] Comment:Reported eGFRcr in m L/min/1.73m2 is based the CKD-EPI 2020 equation that does not use a race coefficient. Blood Venous blood specimen / Unknown Venipuncture / Unknown 10/26/2024 3:02 AM EDT 10/26/2024 3:13 AM EDT us Robert Amin MD LAB BLOOD ORDERABLES Final Res ult [facility] [address] [place] [address] * (ABNORMAL) CBC and Differential (10/26/2024 3:02 AM EDT) WBC Count 5.26 3.70 - 10.30 10*3/uL LAB HEMATOLOGY METHOD 10/26/2024 3:10 AM EDT [facility] RBC Count 2.28(L) 3.90 - 5.20 10*6/uL LAB HEMATOLOGY METHOD 10/26/2024 3:10 AM EDT [facility] HGB 7.0(L) 11.2 - 15.7 g/dL LAB HEMATOLOGY METHOD 10/26/2024 3:10 AM EDT [facility] HCT 22.0(L) 34.0 - 45.0 % LAB HEMATOLOGY METHOD 10/26/2024 3:10 AM EDT [facility] Platelet Count 184 155 - 369 10*3/uL LAB HEMATOLOGY METHOD 10/26/2024 3:10 AM EDT [facility] MCV 97 79 - 98 fL LAB HEMATOLOGY METHOD 10/26/2024 3:10 AM EDT [facility] MCH 30.7 26.0 - 32.0 pg LAB HEMATOLOGY METHOD 10/26/2024 3:10 AM EDT [facility] MCHC 31.8 30.7 - 35.5 g/dL LAB HEMATOLOGY METHOD 10/26/2024 3:10 AM EDT [facility] RDW 15.7(H) 11.5 - 14.5 % LAB HEMATOLOGY METHOD 10/26/2024 3:10 AM EDT [facility] MPV 9.8 8.8 - 12.5 fL LAB HEMATOLOGY METHOD 10/26/2024 3:10 AM EDT [facility] nRBC 2.1(H) <=0.0 per 100 WBCs LAB HEMATOLOGY METHOD 10/26/2024 3:10 AM EDT [facility] Differential Type Automated LAB HEMATOLOGY METHOD 10/26/2024 3:10 AM EDT [facility] Neutrophils % 80 % LAB HEMATOLOGY METHOD 10/26/2024 3:10 AM EDT [facility] Lymphocytes % 9 % LAB HEMATOLOGY METHOD 10/26/2024 3:10 AM EDT [facility] Monocytes % 6 % LAB HEMATOLOGY METHOD 10/26/2024 3:10 AM EDT [facility] Eosinophils % 0 % LAB HEMATOLOGY METHOD 10/26/2024 3:10 AM EDT [facility] Basophils % 0 % LAB HEMATOLOGY METHOD 10/26/2024 3:10 AM EDT [facility] Immature Granulocytes % 5 % LAB HEMATOLOGY METHOD 10/26/2024 3:10 AM EDT [facility] Neutrophils Absolute 4.19 1.60 - 6.10 10*3/uL LAB HEMATOLOGY METHOD 10/26/2024 3:10 AM EDT [facility] Lymphocytes Absolute 0.48(L) 1.20 - 3.90 10*3/uL LAB HEMATOLOGY METHOD 10/26/2024 3:10 AM EDT [facility] Monocytes Absolute 0.31 0.30 - 0.90 10*3/uL LAB HEMATOLOGY METHOD 10/26/2024 3:10 AM EDT [facility] Eosinophils Absolute 0.01 0.00 - 0.50 10*3/uL LAB HEMATOLOGY METHOD 10/26/2024 3:10 AM EDT [facility] Basophils Absolute 0.02 0.00 - 0.10 10*3/uL LAB HEMATOLOGY METHOD 10/26/2024 3:10 AM EDT [facility] Immature Granulocytes Absolute 0.25(H) 0.00 - 0.06 10*3/uL LAB HEMATOLOGY METHOD 10/26/2024 3:10 AM EDT [facility] Blood Venous blood specimen / Unknown Venipuncture / Unknown 10/26/2024 3:02 AM EDT 10/26/2024 3:06 AM EDT Narrative [facility] - 10/26/2024 3:10 AM EDT Therapeutic decision making should be based on absolute values, rather than percentages. us Robert Amin MD LAB BLOOD ORDERABLES Final Res ult Performing Organization Address [facility]/ZIP Co de Phone Number [facility] [address] [place] [address] * Lactate, venous (10/26/2024 3:02 AM EDT) [facility] Lactate, Venous, Whole Blood 0.8 0.5 - 2.2 mmol/L LAB HEMATOLOGY METHOD 10/26/2024 3:15 AM EDT [facility] Blood Venous blood specimen / Unknown Venipuncture / Unknown 10/26/2024 3:02 AM EDT 10/26/2024 3:13 AM EDT Robert Amin MD LAB BLOOD ORDERABLES Final Res ult Performing Organization Address [facility] Co de Phone Number [facility] [address] [place] [address] * (ABNORMAL) POCT glucose meter (10/25/2024 9:25 PM EDT) Pathologist [facility] POCT Glucose 170(H) 74 - 99 mg/dL 10/25/2024 9:27 PM EDT [facility] Comment:Accuracy of [...] to the main labortory for testing. Comment 10/25/2024 9:27 PM EDT [facility] Craft Artist ID Carisa Coleman 10/25/2024 9:27 PM EDT [facility] Device ID [id number] 10/25/2024 9:27 PM EDT [facility] Specimen Type POC Capillary 10/25/2024 9:27 PM EDT [facility] Blood Capillary blood specimen / Unknown 10/25/2024 9:25 PM EDT 10/25/2024 9:27 PM EDT us Robert Amin MD LAB POINT OF CARE TE ST DOCKED DEVICE UNSOLICITED RESULTS Final Result Performing Organization Address City/[facility]/ZIP Co de Phone Number HEALTHCARE LAB [address] [place] [address] * Blood Culture (Aerobic/Anaerobet Set) (10/25/2024 9:10 PM EDT) Culture No growth at day 5 10/30/2024 10:02 PM EDT [facility] Blood Venous blood specimen / Unknown Venipuncture / Unknown 10/25/2024 9:10 PM EDT 10/25/2024 9:51 PM EDT us Doris Contreras MD LAB MICROBIOLOGY - GENE RAL ORDERABLES Final Result Performing Organization Address City/[facility] [place] [address] * ECG Adult (10/25/2024 8:35 PM EDT) EKG DIAGNOSIS CLASS Borderline Normal MUSE ECG Ventricular Rate 97 BPM MUSE ECG Atrial Rate 97 BPM MUSE ECG NC Interval 128 ms MUSE ECG QRSD Interval 88 ms MUSE ECG QT Interval 334 ms MUSE ECG QTC Interval 424 ms MUSE ECG P Jasper 65 degrees MUSE ECG R Jasper 25 degrees MUSE ECG T Wave Jasper 57 degrees MUSE ECG Diagnosis Normal sinus rhythm MUSE ECG Diagnosis RSR' pattern in V1 & V2 MUSE ECG Diagnosis Otherwise normal ECG MUSE ECG Diagnosis MUSE ECG Diagnosis Confirmed by Jeff Jackson ([id number]) on 10/25/2024 8:38:22 PM MUSE ECG 10/25/2024 8:35 PM EDT 10/25/2024 8:38 PM EDT Robert Amin MD ECG ORDERABLES Final Result MUSE ECG * Methicillin Resistant Staphylococcus aureus (MRSA) by PCR (10/25/2024 6:32 PM EDT) [facility] Methicillin Resistant Staphylococcus aureus (MRSA) by PCR Not Detected Not Detected 10/25/2024 8:41 PM EDT [facility] Swab Both anterior nares / Unknown Non-blood Collection / Unknown 10/25/2024 6:32 PM EDT 10/25/2024 6:58 PM EDT Narrative [facility] - 10/25/2024 8:41 PM EDT This test is FDA approved for use with nares swab specimens using the eSwabs. This test is used for clinical purposes. It should not be regarded as investigational or for research. This laboratory is certified under the Clinical Laboratory improvement Amendments of 1988 (CLIA-88 as qualified to perform high complexity clinical laboratory testing. Robert Amin MD LAB MICROBIOLOGY - GENERAL ORD ERABLES Final Result Performing Organization Address City/[facility]/ZIP Co de Phone Number [facility] [address] [place] [address] * (ABNORMAL) POCT glucose meter (10/25/2024 4:34 PM EDT) [facility] POCT Glucose 102(H) 74 - 99 mg/dL 10/25/2024 4:35 PM EDT [facility] Comment:Accuracy of [...] to the main labortory for testing. Comment 10/25/2024 4:35 PM EDT HEALTHCARE LAB Craft Artist ID Sabiha Lobato Ian 025 4:35 PM EDT HEALTHCARE LAB Device ID [id number] 10/25/2024 4:35 PM EDT HEALTHCARE LAB Specimen Type POC Capillary 10/25/2024 4:35 PM EDT HEALTHCARE LAB Blood Capillary blood specimen / Unknown 10/25/2024 4:34 PM EDT 10/25/2024 4:35 PM EDT us Robert Amin MD LAB POINT OF CARE TE ST DOCKED DEVICE UNSOLICITED RESULTS Final Result Performing Organization Address [facility] de Phone Number [facility] [address] [place] [address] * (ABNORMAL) Troponin T, High Sensitivity, 2 Hour, Plasma (10/25/2024 1:16 PM EDT) [facility] Troponin T, High Sensitivity, 2 Hour 19(H) <14 ng/L 10/25/2024 1:40 PM EDT [facility] Troponin Delta 2 <10 ng/L 10/25/2024 1:40 PM EDT [facility] Troponin Delta Interpretation Not Significant 10/25/2024 1:40 PM EDT [facility] Comment:Not Significant. No acute change in troponin observed between the baseline and 2 hour samples. Blood Venous blood specimen / Unknown Venipuncture / Unknown 10/25/2024 1:16 PM EDT 10/25/2024 1:20 PM EDT us Doris Contreras MD LAB BLOOD ORDERABLES Fi nal Result Performing Organization Address [facility] de Phone Number [facility] [address] [place] [address] * CT Angio Pulmonary Embolism (10/25/2024 11:02 AM EDT) Anatomical Region Laterality Modality Chest Computed Tomogra phy Impressions 10/25/2024 12:50 PM EDT No pulmonary embolism. Airspace disease in the dependent portion of the right upper lobe and right lower lobe. Interstitial thickening in the posterior aspect of the bilateral upper lobes and lower lobes. CRITICAL RESULT: No. COMMUNICATION: Per this written report. Drafted by Ashia Murray MD on 10/25/2024 12:43 PM Final report signed by Ashia Murray MD on 10/25/2024 12:50 PM Narrative 10/25/2024 12:50 PM EDT CLINICAL INDICATION: dyspnea TECHNIQUE: Imaging of the chest was performed from thoracic inlet through upper abdomen, using spiral technique, following administration of IV contrast, Omnipaque 350, 100 mL per the pulmonary angiogram protocol. In addition, 3D images were created and reviewed. TOTAL DLP (Dose-Length Product): 614.87 mGy.cm. Please note: The reported value represents the total of one or more individual components during the CT acquisition on this date and at this time, and as such, the same value may appear in more than one CT report depending on the interpreting/reporting physicians. COMPARISON: None. FINDINGS: Pulmonary Arteries/Vessels: No pulmonary embolism. Right Heart Strain: No evidence of right heart strain. Pleural/Pericardial space: No pneumothorax. No pleural effusions. No pericardial effusion. Lymph Nodes: No lymphadenopathy within the chest. Lungs: There is sulcal opacification in the posterior aspect of the right upper lobe. There is mild interstitial thickening in the bilateral dependent lung bases. There is more focal nodular opacification seen in the dependent portion of the right lower lobe suggestive of airspace disease. Mediastinum: The heart size is within normal limits. There is calcified atherosclerotic disease of the coronary arteries Chest wall: No chest wall hematoma or contusion. Bones: No acute fracture within the chest. Upper Abdomen: Cysts are seen in the bilateral upper poles of the kidneys right side greater than left. These are not optimally evaluated on this exam without IV contrast and without inclusion of the lower portion of the abdomen. Procedure Note Ashia Murray MD - 10/25/2024 CLINICAL INDICATION: dyspnea TECHNIQUE: Imaging of the chest was performed from thoracic inlet through upperabdomen, using spiral technique, following administration of IV contrast,Omnipaque 350, 100 mL per the pulmonary angiogram protocol. In addition,3D images were created and reviewed. TOTAL DLP (Dose-Length Product): 614.87 mGy.cm. Please note: The reportedvalue represents the total of one or more individual components during theCT acquisition on this date and at this time, and as such, the same valuemay appear in more than one CT report depending on theinterpreting/reporting physicians. COMPARISON: None. FINDINGS: Pulmonary Arteries/Vessels: No pulmonary embolism. Right Heart Strain: No evidence of right heart strain. Pleural/Pericardial space: No pneumothorax. No pleural effusions. Nopericardial effusion. Lymph Nodes: No lymphadenopathy within the chest. Lungs: There is sulcal opacification in the posterior aspect of the rightupper lobe. There is mild interstitial thickening in the bilateraldependent lung bases. There is more focal nodular opacification seen inthe dependent portion of the right lower lobe suggestive of airspacedisease. Mediastinum: The heart size is within normal limits. There is calcifiedatherosclerotic disease of the coronary arteries Chest wall: No chest wall hematoma or contusion. Bones: No acute fracture within the chest. Upper Abdomen: Cysts are seen in the bilateral upper poles of the kidneysright side greater than left. These are not optimally evaluated on thisexam without IV contrast and without inclusion of the lower portion of theabdomen. IMPRESSION: No pulmonary embolism. Airspace disease in the dependent portion of the right upper lobe andright lower lobe. Interstitial thickening in the posterior aspect of the bilateral upperlobes and lower lobes. CRITICAL RESULT: No. COMMUNICATION: Per this written report. Drafted by Ashia Murray MD on 10/25/2024 12:43 PM Final report signed by Ashia Murray MD on 10/25/2024 12:50 PM Doris Contreras MD IMG CT PROCEDURES Final Result * SARS CoV-2/COVID-19 by PCR - Rapid (10/25/2024 10:42 AM EDT) SARS CoV-2/COVID-1 9 RNA PCR Result Not Detected Not Detected 10/25/2024 12:13 PM EDT [facility] Swab Nasopharyngeal structure / Unknown Non-blood Collection / Unknown 10/25/2024 10:42 AM EDT 10/25/2024 11:16 AM EDT Narrative [facility] - 10/25/2024 12:13 PM EDT This test is FDA approved for use with nasopharyngeal specimens in Viral Transport Media (VTM). This test is used for clinical purposes. It should not be regarded as investigational or for research. This laboratory is certified under the Clinical Laboratory improvement Amendments of 1988 (CLIA-88 as qualified to perform high complexity clinical laboratory testing. This test was performed on the Xpert Xpress SARS CoV-2 Plus assay test, a PCR- based method. Negative results should be considered presumptive and do not preclude current or future infection obtained through community transmission or other exposures. Negative results must be considered in the context of an individual's recent exposures, history, presence of clinical signs and symptoms consistent with COVID-19. Doris Contreras MD LAB MICROBIOLOGY - GENE [facility] ORDERABLES Final Result Performing Organization Address [facility]/ZIP Co de Phone Number [facility] [address] [place] [phone] * Nasopharyngeal Respiratory Panel (10/25/2024 10:42 AM EDT) Nasopharyngeal Respiratory PCR Interpretation Not Detected for all analytes Not Detected for all analytes 10/25/2024 3:07 PM EDT [facility] Swab Nasopharyngeal structure / Unknown Non-blood Collection / Unknown 10/25/2024 10:42 AM EDT 10/25/2024 11:16 AM EDT Narrative [facility] - 10/25/2024 3:07 PM EDT This assay can detect Adenovirus, [...] Respiratory PCR Panel is performed using the [employer] instrument. This test is FDA approved for use with Nasopharyngeal swabs only. This test is used for clinical purposes. It should not be regarded as investigational or for research. [facility] Clinical Microbiology Laboratory is certified under the Clinical Laboratory Improvement Amendments of 1988 (CLIA-88) as qualified to perform high complexity clinical laboratory testing. Doris Contreras MD LAB MICROBIOLOGY - GENE [facility] ORDERABLES Final Result Performing Organization Address [facility]/ZIP Co de Phone Number [facility] [address] [place] [address] * (ABNORMAL) BNP (10/25/2024 10:28 AM EDT) N-Terminal, PROBNP, Plasma 1,887(H) 0 - 899 pg/mL 10/25/2024 10:59 AM EDT [facility] Blood Venous blood specimen / Unknown Venipuncture / Unknown 10/25/2024 10:28 AM EDT 10/25/2024 10:35 AM EDT Doris Contreras MD LAB BLOOD ORDERABLES Fi nal Result [facility] [address] [place] [address] * (ABNORMAL) Troponin now and 120 min (10/25/2024 10:28 AM EDT) Troponin T, High Sensitivity, 0 Hour 21(H) <14 ng/L 10/25/2024 10:59 AM EDT [facility] Blood Venous blood specimen / Unknown Venipuncture / Unknown 10/25/2024 10:28 AM EDT 10/25/2024 10:35 AM EDT Doris Contreras MD LAB BLOOD ORDERABLES Fi nal Result [facility] [address] [place] [address] * (ABNORMAL) Blood gas panel, venous (10/25/2024 10:28 AM EDT) Pathologist [facility] pH, Venous 7.39 7.32 - 7.43 LAB HEMATOLOGY METHOD 10/25/2024 10:32 AM EDT [facility] pCO2, Venous 50 37 - 52 mmHg LAB HEMATOLOGY METHOD 10/25/2024 10:32 AM EDT [facility] pO2, Venous 47(H) 25 - 40 mmHg LAB HEMATOLOGY METHOD 10/25/2024 10:32 AM EDT [facility] SO2, Measured, Venous 79 65 - 80 % LAB HEMATOLOGY METHOD 10/25/2024 10:32 AM EDT [facility] Base Excess, Venous 4.4(H) -2.0 - 3.0 mmol/L LAB HEMATOLOGY METHOD 10/25/2024 10:32 AM EDT [facility] Bicarbonate, Calculated, Venous 30(H) 22 - 26 mmol/L LAB HEMATOLOGY METHOD 10/25/2024 10:32 AM EDT [facility] Hematocrit, Whole Blood 23.3(L) 34.0 - 45.0 % LAB HEMATOLOGY METHOD 10/25/2024 10:32 AM EDT [facility] Sodium, Whole Blood 142 136 - 145 mmol/L LAB HEMATOLOGY METHOD 10/25/2024 10:32 AM EDT [facility] Potassium, Whole Blood 3.9 3.6 - 4.9 mmol/L LAB HEMATOLOGY METHOD 10/25/2024 10:32 AM EDT [facility] Chloride, Whole Blood 101 97 - 107 mmol/L LAB HEMATOLOGY METHOD 10/25/2024 10:32 AM EDT [facility] Glucose, Whole Blood 200(H) 74 - 99 mg/dL LAB HEMATOLOGY METHOD 10/25/2024 10:32 AM EDT [facility] Lactate, Venous, Whole Blood 2.6(H) 0.5 - 2.2 mmol/L LAB HEMATOLOGY METHOD 10/25/2024 10:32 AM EDT [facility] Ionized Calcium, Whole Blood 4.4(L) 4.6 - 5.1 mg/dL LAB HEMATOLOGY METHOD 10/25/2024 10:32 AM EDT [facility] Blood Venous blood specimen / Unknown Venipuncture / Unknown 10/25/2024 10:28 AM EDT 10/25/2024 10:31 AM EDT us Doris Contreras MD LAB BLOOD ORDERABLES Fi nal Result [facility] [address] [place] [address] * (ABNORMAL) BMP (10/25/2024 10:28 AM EDT) Glucose, Plasma 197(H) 74 - 99 mg/dL 10/25/2024 10:59 AM EDT [facility] BUN, Plasma 13 8 - 23 mg/dL 10/25/2024 10:59 AM EDT [facility] Creatinine, Plasma 0.94 0.60 - 1.10 mg/dL 10/25/2024 10:59 AM EDT [facility] BUN/Creatinine Ratio 14 10/25/2024 10:59 AM EDT [facility] Sodium, Plasma 142 136 - 145 mmol/L 10/25/2024 10:59 AM EDT [facility] Potassium, Plasma 4.0 3.6 - 4.9 mmol/L 10/25/2024 10:59 AM EDT [facility] Chloride, Plasma 102 97 - 107 mmol/L 10/25/2024 10:59 AM EDT [facility] CO2, Plasma 25 22 - 29 mmol/L 10/25/2024 10:59 AM EDT [facility] Anion Gap 15 6 - 16 mmol/L 10/25/2024 10:59 AM EDT [facility] Total Calcium, Plasma 8.2(L) 8.9 - 10.2 mg/dL 10/25/2024 10:59 AM EDT [facility] eGFRcr 68.3 mL/min/1.7 3m*2 10/25/2024 10:59 AM EDT [facility] Comment:Reported eGFRcr in m L/min/1.73m2 is based the CKD-EPI 2020 equation that does not use a race coefficient. Blood Venous blood specimen / Unknown Venipuncture / Unknown 10/25/2024 10:28 AM EDT 10/25/2024 10:35 AM EDT us Doris Contreras MD LAB BLOOD ORDERABLES Fi nal Result [facility] [address] [place] [address] * (ABNORMAL) CBC w/diff (10/25/2024 10:28 AM EDT) WBC Count 6.43 3.70 - 10.30 10*3/uL LAB HEMATOLOGY METHOD 10/25/2024 10:38 AM EDT [facility] RBC Count 2.44(L) 3.90 - 5.20 10*6/uL LAB HEMATOLOGY METHOD 10/25/2024 10:38 AM EDT [facility] HGB 7.4(L) 11.2 - 15.7 g/dL LAB HEMATOLOGY METHOD 10/25/2024 10:38 AM EDT [facility] HCT 23.5(L) 34.0 - 45.0 % LAB HEMATOLOGY METHOD 10/25/2024 10:38 AM EDT [facility] Platelet Count 175 155 - 369 10*3/uL LAB HEMATOLOGY METHOD 10/25/2024 10:38 AM EDT [facility] MCV 96 79 - 98 fL LAB HEMATOLOGY METHOD 10/25/2024 10:38 AM EDT [facility] MCH 30.3 26.0 - 32.0 pg LAB HEMATOLOGY METHOD 10/25/2024 10:38 AM EDT [facility] MCHC 31.5 30.7 - 35.5 g/dL LAB HEMATOLOGY METHOD 10/25/2024 10:38 AM EDT [facility] RDW 15.7(H) 11.5 - 14.5 % LAB HEMATOLOGY METHOD 10/25/2024 10:38 AM EDT [facility] MPV 10.3 8.8 - 12.5 fL LAB HEMATOLOGY METHOD 10/25/2024 10:38 AM EDT [facility] nRBC 1.9(H) <=0.0 per 100 WBCs LAB HEMATOLOGY METHOD 10/25/2024 10:38 AM EDT [facility] Differential Type Automated LAB HEMATOLOGY METHOD 10/25/2024 10:38 AM EDT [facility] Neutrophils % 71 % LAB HEMATOLOGY METHOD 10/25/2024 10:38 AM EDT [facility] Lymphocytes % 16 % LAB HEMATOLOGY METHOD 10/25/2024 10:38 AM EDT [facility] Monocytes % 8 % LAB HEMATOLOGY METHOD 10/25/2024 10:38 AM EDT [facility] Eosinophils % 0 % LAB HEMATOLOGY METHOD 10/25/2024 10:38 AM EDT [facility] Basophils % 1 % LAB HEMATOLOGY METHOD 10/25/2024 10:38 AM EDT [facility] Immature Granulocytes % 4 % LAB HEMATOLOGY METHOD 10/25/2024 10:38 AM EDT [facility] Neutrophils Absolute 4.60 1.60 - 6.10 10*3/uL LAB HEMATOLOGY METHOD 10/25/2024 10:38 AM EDT [facility] Lymphocytes Absolute 1.01(L) 1.20 - 3.90 10*3/uL LAB HEMATOLOGY METHOD 10/25/2024 10:38 AM EDT [facility] Monocytes Absolute 0.49 0.30 - 0.90 10*3/uL LAB HEMATOLOGY METHOD 10/25/2024 10:38 AM EDT [facility] Eosinophils Absolute 0.02 0.00 - 0.50 10*3/uL LAB HEMATOLOGY METHOD 10/25/2024 10:38 AM EDT [facility] Basophils Absolute 0.04 0.00 - 0.10 10*3/uL LAB HEMATOLOGY METHOD 10/25/2024 10:38 AM EDT [facility] Immature Granulocytes Absolute 0.27(H) 0.00 - 0.06 10*3/uL LAB HEMATOLOGY METHOD 10/25/2024 10:38 AM EDT [facility] Blood Venous blood specimen / Unknown Venipuncture / Unknown 10/25/2024 10:28 AM EDT 10/25/2024 10:35 AM EDT Narrative [facility] - 10/25/2024 10:38 AM EDT Therapeutic decision making should be based on absolute values, rather than percentages. us Doris Contreras MD LAB BLOOD ORDERABLES Fi nal Result [facility] [address] [place] [address] * EKG now - STAT (adult) (10/25/2024 10:12 AM EDT) EKG DIAGNOSIS CLASS Borderline Normal MUSE ECG Ventricular Rate 88 BPM MUSE ECG Atrial Rate 88 BPM MUSE ECG NC Interval 130 ms MUSE ECG QRSD Interval 78 ms MUSE ECG QT Interval 350 ms MUSE ECG QTC Interval 423 ms MUSE ECG P Jasper 71 degrees MUSE ECG R Jasper 17 degrees MUSE ECG T Wave Jasper 44 degrees MUSE ECG Diagnosis Normal sinus rhythm MUSE ECG Diagnosis RSR' pattern in V1 and V2 MUSE ECG Diagnosis Otherwise normal ECG MUSE ECG Diagnosis MUSE ECG Diagnosis MUSE ECG Diagnosis Confirmed by Herman Lima ([id number]) on 10/25/2024 1:35:28 PM MUSE ECG 10/25/2024 10:1 2 AM EDT 10/25/2024 1:35 PM EDT us Doris Contreras MD ECG ORDERABLES Final R esult MUSE ECG * [facility] ED POCUS PROCDOC (10/25/2024 9:51 AM EDT) Narrative Doris Contreras MD - 10/25/2024 9:51 AM EDT Doris Contreras MD 10/25/2024 11:00 AM POC Ultrasound - Bedside Performed by: Estuardo Santos MD Authorized by: Doris Contreras MD Procedure specific details: Limited Thoracic Ultrasound A focused ultrasound exam of the pleural spaces was performed to evaluate for pneumothorax, pulmonary edema, pleural effusion and/or consolidation. The ultrasound was performed with the following indications, as noted in the H&P: Hypoxia Identified structures: The Bilateral thoracic cavities were examined. Findings: Lung sliding: Leftpresent Rightpresent B-lines: Left anteriorabsent Right anteriorabsent Left lateralpresent Right lateralpresent Pleural Effusion: Leftabsent Rightabsent Consolidation: Left anteriorabsent Right anteriorabsent Left lateralabsent Right lateralabsent Left posteriorabsent Right posteriorabsent Other: n/a Impression: No Pneumothorax No Pleural effusion Bilateral inferior B-lines No Consolidation The images were Saved in Qpath - E. The study was technically adequate. Comments: n/a us Doris Contreras MD IN CLINIC/BEDSIDE ORDER [facility] Final Result * [facility] ED POCUS PROCDOC (10/25/2024 9:51 AM EDT) Narrative Doris Contreras MD - 10/25/2024 9:51 AM EDT Doris Contreras MD 10/25/2024 11:00 AM POC Ultrasound - Bedside Performed by: Estuardo Santos MD Authorized by: Doris Contreras MD Procedure specific details: Limited Cardiac Ultrasound A focused ultrasound of the heart was performed to evaluate for pericardial effusion, tamponade, severe hypovolemia, or gross abnormalities of cardiac anatomy or function in this patient. The ultrasound was performed with the following indications, as noted in the H&P: Hypoxia Identified structures: The pericardial sac, myocardium, and 4 chambers were identified using the following views: Parasternal long axis and Apical 4 chamber Findings Exam of the above structures revealed the following findings: Pericardial Effusion: Absent Pericardial tamponade: absent Visual estimation of LV function: Normal Visual estimation of RV size: less than 1:1 RV/LV ratio Other: n/a Impression: Unremarkable limited cardiac ultrasound The images were Saved in [employer]. The study was technically adequate. Comments: n/a us Doris Contreras MD IN CLINIC/BEDSIDE ORDER [facility] Final Result documented in this encounter Visit Diagnoses Diagnosis Pneumonia of right upper lobe due to infectious organism- Primary Hypoxia Hypoxemia Other fatigue Pneumonia of right upper lobe due to infectious organism documented in this encounter Admitting Diagnoses Diagnosis Pneumonia of right upper lobe due to infectious organism documented in this encounter Administered Medications Inactive Administered Medications - up to 3 most recent administrations Medication Order MAR Action Action Date Dose Rate Site acetaminophen (Tylenol) tablet 650 mg 650 mg, Oral, Every 8 hours scheduled, First dose (after last modification) on Thu10/25/24 at 1600, Until Discontinued, Routine Given 10/31/2024 12:46 PM EDT 650 mg Given 10/30/2024 9:13 PM EDT 650 mg Given 10/30/2024 1:02 PM EDT 650 mg albuterol (Proventil) (2.5 MG/3ML) 0.083% nebulizer solution 2.5 mg 2.5 mg, Nebulization, Every 12 hours, First dose on Thu10/26/24 at 0820, Until Discontinued, Routine Given 10/30/2024 8:18 PM EDT 2.5 mg Given 10/30/2024 9:40 AM EDT 2.5 mg Given 10/29/2024 8:35 PM EDT 2.5 mg atorvastatin (Lipitor) tablet 40 mg 40 mg, Oral, Daily, First dose on Thu10/25/24 at 1340, Until Discontinued, Routine Given 10/31/2024 9:09 AM EDT 40 mg Given 10/30/2024 8:14 AM EDT 40 mg Given 10/29/2024 8:15 AM EDT 40 mg azithromycin (Zithromax) tablet 500 mg 500 mg, Oral, Daily, 3 doses, First dose on Thu10/25/24 at 1625, Last dose on Thu10/27/24 at 0900, Routine Given 10/27/2024 9:06 AM EDT 500 mg Given 10/26/2024 8:21 AM EDT 500 mg Given 10/25/2024 4:43 PM EDT 500 mg benzonatate (Tessalon) capsule 100 mg 100 mg, Oral, 3 times daily PRN, Starting on Thu10/25/24 at 1335, Until Thu10/31/24 at 1934, Routine, cough Given 10/30/2024 12:58 PM EDT 100 mg calcium carbonate (Tums) chewable tablet 500 mg 500 mg, Oral, 4 times daily PRN, Starting on Thu10/25/24 at 1703, Until Thu10/31/24 at 1934, Routine, indigestion, heartburn Given 10/30/2024 12:58 PM EDT 500 m g Given 10/30/2024 8:14 AM EDT 500 mg Given 10/29/2024 3:21 PM EDT 500 mg calcium-vitamin D 500-200 MG-UNIT per tablet 1 tablet 1 tablet, Oral, Daily, First dose on Thu10/25/24 at 1340, Until Discontinued Given 10/31/2024 9:08 AM EDT 1 tablet Given 10/30/2024 8:12 AM EDT 1 tablet Given 10/29/2024 8:13 AM EDT 1 tablet cetirizine (ZyrTEC) tablet 10 mg 10 mg, Oral, Daily, First dose on Thu10/25/24 at 1340, Until Discontinued, Routine Given 10/31/2024 9:09 AM EDT 10 mg Given 10/30/2024 8:14 AM EDT 10 mg Given 10/29/2024 8:15 AM EDT 10 mg dexamethasone (Decadron) tablet 2 mg 2 mg, Oral, Every 12 hours, First dose on Thu10/26/24 at 1155, Until Discontinued, Routine Given 10/31/2024 9:09 AM EDT 2 mg Given 10/30/2024 9:13 PM EDT 2 mg Given 10/30/2024 8:14 AM EDT 2 mg dextrose 50 % solution 12.5-25 g 12.5-25 g, Intravenous, Every 15 min PRN, Starting on Thu10/25/24 at 1339, Until Thu10/31/24 at 1934, Routine, low blood sugar FLUoxetine (PROzac) capsule 40 mg 40 mg, Oral, Daily, First dose on Thu10/25/24 at 1340, Until Discontinued Given 10/31/2024 9:08 AM EDT 40 mg Given 10/30/2024 8:13 AM EDT 40 mg Given 10/29/2024 8:14 AM EDT 40 mg gabapentin (Neurontin) capsule 600 mg 600 mg, Oral, 4 times daily, First dose on Thu10/25/24 at 1800, Until Discontinued, Routine Given 10/31/2024 5:01 PM EDT 600 mg Given 10/31/2024 12:45 PM EDT 600 mg Given 10/31/2024 9:08 AM EDT 600 mg glucagon (human recombinant) injection 1 mg 1 mg, Intramuscular, Every 15 min PRN, Starting on Thu10/25/24 at 1339, Until Thu10/31/24 at 1934, Routine, low blood sugar per Hypoglycemia Prevention and Treatment protocol glucose (Glutose) 40 % oral gel 15-30 grams of glucose 15-30 grams of glucose, Sublingual, Every 15 min PRN, Starting on Thu10/25/24 at 1339, Until Thu10/31/24 at 1934, Routine, low blood sugar, per Hypoglycemia Prevention and Treatment protocol guaiFENesin (Mucinex) 12 hr tablet 600 mg 600 mg, Oral, 2 times daily PRN, Starting on Thu10/25/24 at 1619, Until Thu10/31/24 at 1934, Routine, cough Given 10/26/2024 12:45 PM EDT 600 mg hydrOXYzine HCl (Atarax) tablet 25 mg 25 mg, Oral, Every 8 hours PRN, Starting on Thu10/25/24 at 1335, Until Thu10/31/24 at 1934, Routine, anxiety Given 10/30/2024 8:13 AM EDT 25 mg Given 10/29/2024 5:23 PM EDT 25 mg Given 10/29/2024 8:15 AM EDT 25 mg insulin glargine-yfgn 100 UNIT/ML injection 10 Units 10 Units, Subcutaneous, Nightly, First dose on Thu10/25/24 at 2100, Until Discontinued, Routine Given 10/26/2024 9:13 PM EDT 10 Units Right Lower Abdomen Given 10/25/2024 10:23 PM EDT 10 Units L eft Lower Abdomen insulin glargine-yfgn 100 UNIT/ML injection 15 Units 15 Units, Subcutaneous, Nightly, First dose (after last modification) on Thu10/27/24 at 2100, Until Discontinued, Routine Given 10/27/2024 9:41 PM EDT 15 Units Left Upper Arm (Back ) insulin glargine-yfgn 100 UNIT/ML injection 20 Units 20 Units, Subcutaneous, Nightly, First dose (after last modification) on Thu10/28/24 at 2100, Until Discontinued, Routine Given 10/28/2024 8:48 PM EDT 20 Units Left Upper Arm (Back ) insulin glargine-yfgn 100 UNIT/ML injection 25 Units 25 Units, Subcutaneous, Nightly, First dose (after last modification) on Thu10/29/24 at 2100, Until Discontinued, Routine Given 10/30/2024 9:11 PM EDT 25 Units Right Upper Arm (Noam k) Given 10/29/2024 9:53 PM EDT 25 Units Ri ght Upper Arm (Back) insulin glargine-yfgn 100 UNIT/ML injection 30 Units 30 Units, Subcutaneous, Nightly, First dose (after last modification) on Thu10/31/24 at 2100, Until Discontinued, Routine insulin lispro (Admelog) 100 units/mL injection - Correction - Resistant Dose 0-10 Units, Subcutaneous, 3 times daily with meals, First dose on Thu10/25/24 at 1340, Until Discontinued, Routine Given 10/31/2024 12:46 PM EDT 8 Units Left Lower Abdomen Given 10/31/2024 9:08 AM EDT 4 Units Le ft Lower Abdomen Given 10/30/2024 5:22 PM EDT 4 Units Le ft Upper Arm (Back) insulin lispro (Admelog) injection - Correction - Nighttime Dose 0-3 Units, Subcutaneous, 2 times nightly (2099 & 0300), First dose on Thu10/25/24 at 2100, Until Discontinued, Routine Given 10/31/2024 3:52 AM EDT 2 Units Right Upper Arm (Noam k) Given 10/30/2024 9:12 PM EDT 3 Units Ri ght Upper Arm (Back) Given 10/30/2024 3:27 AM EDT 1 Units Ri ght Upper Arm (Back) Insulin Lispro (Admelog, HumaLOG) 100 UNIT/ML injection 15 Units 15 Units, Subcutaneous, 3 times daily with meals, First dose (after last modification) on 10/29/24 at 0830, Until Discontinued, Routine Given 10/31/2024 5:02 PM EDT 15 Units Left Lower Abdomen Given 10/31/2024 12:45 PM EDT 15 Units L eft Lower Abdomen Given 10/31/2024 9:07 AM EDT 15 Units Le ft Lower Abdomen Insulin Lispro (Admelog, HumaLOG) 100 UNIT/ML injection 5 Units 5 Units, Subcutaneous, 3 times daily with meals, First dose on Corrina 10/27/24 at 0830, Until Discontinued, Routine Given 10/27/2024 5:42 PM EDT 5 Units Left Lower Abdomen Given 10/27/2024 1:28 PM EDT 5 Units Le ft Lower Abdomen Given 10/27/2024 9:07 AM EDT 5 Units Le ft Lower Abdomen Insulin Lispro (Admelog, HumaLOG) 100 UNIT/ML injection 7 Units 7 Units, Subcutaneous, 3 times daily with meals, First dose (after last modification) on Thu10/28/24 at 0900, Until Discontinued, Routine Given 10/28/2024 5:39 PM EDT 7 Units Right Upper Arm (Noam k) Given 10/28/2024 12:30 PM EDT 7 Units L eft Upper Arm (Back) Given 10/28/2024 9:25 AM EDT 7 Units Le ft Upper Abdomen iohexol (OMNIPaque) 350 MG/ML injection 100 mL 100 mL, Intravenous, Once in imaging, 1 dose, Starting on Thu10/25/24 at 1053, Until Thu10/25/24 at 1058, Routine, Imaging Protocol Orders Given 10/25/2024 10:58 AM EDT 80 mL ipratropium-albuterol (Duo-Neb) 0.5-2.5 mg/3 mL nebulizer solution 3 mL 3 mL, Nebulization, Every 4 hours PRN, Starting on Thu10/25/24 at 1619, Until Thu10/26/24 at 0816, Routine, wheezing Given 10/25/2024 9:24 PM EDT 3 mL ipratropium-albuterol (Duo-Neb) 0.5-2.5 mg/3 mL nebulizer solution 3 mL 3 mL, Nebulization, Every 6 hours PRN, Starting on Thu10/28/24 at 1548, Until Thu10/31/24 at 1934, Routine, wheezing ipratropium-albuterol (Duo-Neb) 0.5-2.5 mg/3 mL nebulizer solution 9 mL 9 mL, Nebulization, Once, 1 dose, On Thu10/25/24 at 1025, Routine Given 10/25/2024 10:34 AM EDT 9 mL lactated Ringer's infusion 1,000 mL 1,000 mL, Intravenous, Once (Bolus), 1 dose, On Thu10/25/24 at 1020, STAT New Bag 10/25/2024 10:32 AM EDT 1,000 mL lactobacillus acidophilus (Floranex) packet 1 packet 1 packet, Oral, 3 times daily with meals, First dose on Thu10/28/24 at 1730, Until Discontinued, Routine Given 10/31/2024 5:02 PM EDT 1 packet Given 10/31/2024 12:47 PM EDT 1 packet Given 10/31/2024 9:09 AM EDT 1 packet loperamide (Imodium A-D) tablet 2 mg 2 mg, Oral, 4 times daily PRN, Starting on Thu10/25/24 at 1620, Until Thu10/31/24 at 1934, Routine, diarrhea magic butt balm (Cholestyramine) ointment Topical, Every 1 hour PRN, Starting on Thu10/26/24 at 1639, Until Thu10/31/24 at 1934, Routine, diaper rash Given 10/30/2024 9:14 PM EDT 1 Application Given 10/29/2024 10:00 PM EDT 1 Application magic mouthwash BLM (FIRST-Mouthwash) suspension 15 mL 15 mL, Swish & Spit, 4 times daily before meals and nightly, First dose on Thu10/25/24 at 1340, Until Discontinued, Routine Given 10/30/2024 9:18 PM EDT 15 mL Given 10/30/2024 5:30 PM EDT 15 mL Given 10/30/2024 12:56 PM EDT 15 mL magic mouthwash BLM (FIRST-Mouthwash) suspension 15 mL 15 mL, Swish & Spit, 4 times daily before meals and nightly, First dose on Thu10/31/24 at 0815, Until Discontinued, Routine Given 10/31/2024 5:01 PM EDT 15 mL Given 10/31/2024 12:47 PM EDT 15 mL Given 10/31/2024 9:07 AM EDT 15 mL magnesium oxide (Mag-Ox) tablet 400 mg 400 mg, Oral, 2 times daily, First dose on Thu10/25/24 at 1340, Until Discontinued Given 10/31/2024 9:09 AM EDT 400 mg Given 10/30/2024 9:13 PM EDT 400 mg Given 10/30/2024 8:13 AM EDT 400 mg magnesium sulfate IVPB 2 g 2 g, Intravenous, Once, 1 dose, On Thu10/26/24 at 0725, Routine 10/26/2024 1:00 PM EDT 2 g 25 mL/ hr magnesium sulfate IVPB 2 g 2 g, Intravenous, Once, 1 dose, On Thu10/26/24 at 1700, Routine New Bag 10/26/2024 5:20 PM EDT 2 g 25 mL/ hr magnesium sulfate IVPB 2 g 2 g, Intravenous, Once, 1 dose, On Thu10/28/24 at 0900, Routine New Bag 10/28/2024 9:25 AM EDT 2 g 25 mL/ hr magnesium sulfate IVPB 2 g 2 g, Intravenous, Once, 1 dose, On Thu10/29/24 at 0830, Routine New Bag 10/29/2024 8:13 AM EDT 2 g 25 mL/ hr magnesium sulfate IVPB 2 g 2 g, Intravenous, Once, 1 dose, On Thu10/30/24 at 1715, Routine New Bag 10/30/2024 5:30 PM EDT 2 g 25 mL/ hr magnesium sulfate IVPB 2 g 2 g, Intravenous, Once, 1 dose, On Thu10/31/24 at 0730, Routine New Bag 10/31/2024 9:05 AM EDT 2 g 25 mL/ hr melatonin tablet 3 mg 3 mg, Oral, Nightly PRN, Starting on Thu10/25/24 at 1331, Until Thu10/31/24 at 1934, Routine, sleep Given 10/29/2024 9:58 PM EDT 3 mg Given 10/28/2024 8:43 PM EDT 3 mg Given 10/27/2024 9:40 PM EDT 3 mg metoprolol succinate XL (Toprol-XL) 24 hr tablet 50 mg 50 mg, Oral, Daily, First dose on Thu10/27/24 at 1010, Until Discontinued, Routine Given 10/31/2024 9:09 AM EDT 50 mg Given 10/30/2024 8:13 AM EDT 50 mg Given 10/29/2024 8:14 AM EDT 50 mg metoprolol tartrate (Lopressor) tablet 25 mg 25 mg, Oral, Once, 1 dose, On Thu10/25/24 at 2105, Routine Given 10/25/2024 9:32 PM EDT 25 mg metoprolol tartrate (Lopressor) tablet 25 mg 25 mg, Oral, Once, 1 dose, On Thu10/26/24 at 1640, Routine Given 10/26/2024 4:42 PM EDT 25 mg miconazole (Micotin) 2 % cream 1 Application Topical, 2 times daily, First dose on Thu10/26/24 at 2100, Until Discontinued, Routine Given 10/31/2024 9:09 AM EDT 1 Application Given 10/30/2024 9:14 PM EDT 1 Application Given 10/30/2024 9:14 AM EDT 1 Application miconazole nitrate ointment 1 Application Topical, 2 times daily, First dose on Thu10/26/24 at 1415, Until Discontinued, Routine Given 10/26/2024 3:20 PM EDT 1 Application mometasone-formoterol (Dulera 100) 100-5 MCG/ACT inhaler 2 puff 2 puff, Inhalation, 2 times daily, First dose on Thu10/25/24 at 1340, Until Discontinued Given 10/31/2024 9:10 AM EDT 2 puffs Given 10/30/2024 9:14 PM EDT 2 puffs Given 10/30/2024 9:14 AM EDT 2 puffs montelukast (Singulair) tablet 10 mg 10 mg, Oral, Nightly, First dose on Thu10/25/24 at 2100, Until Discontinued, Routine Given 10/30/2024 9:13 PM EDT 10 mg Given 10/29/2024 9:53 PM EDT 10 mg Given 10/28/2024 8:43 PM EDT 10 mg nystatin (Mycostatin) 708116 UNIT/ML suspension 500,000 Units 500,000 Units (5 mL), Swish & Swallow, 4 times daily, First dose on Thu10/25/24 at 1400, Until Discontinued, Routine Given 10/31/2024 5:02 PM EDT 500,000 Units Given 10/31/2024 12:46 PM EDT 500,000 Units Given 10/31/2024 9:09 AM EDT 500,000 Units ondansetron (Zofran) 4 MG/5ML solution 4 mg 4 mg, Oral, Every 6 hours PRN, Starting on Thu10/25/24 at 1331, Until Thu10/31/24 at 1934, Routine, nausea, vomiting ondansetron (Zofran) injection 4 mg 4 mg, Intravenous, Every 6 hours PRN, Starting on Thu10/25/24 at 1331, Until Thu10/31/24 at 1934, Routine, vomiting, nausea ondansetron ODT (Zofran-ODT) disintegrating tablet 4 mg 4 mg, Oral, Every 6 hours PRN, Starting on Thu10/25/24 at 1331, Until Thu10/31/24 at 1934, Routine, nausea, vomiting Given 10/30/2024 7:22 PM EDT 4 mg Given 10/29/2024 4:23 PM EDT 4 mg Given 10/28/2024 1:27 PM EDT 4 mg pantoprazole (Protonix) EC tablet 40 mg 40 mg, Oral, Daily, First dose on Thu10/25/24 at 1340, Until Discontinued, Routine Given 10/31/2024 9:09 AM EDT 40 mg Given 10/30/2024 8:14 AM EDT 40 mg Given 10/29/2024 8:15 AM EDT 40 mg piperacillin-tazobactam (Zosyn) 4.5 g in sodium chloride 0.9% 100 mL IVPB (vial adapter required) 4.5 g, Intravenous, Once, 1 dose, On Thu10/25/24 at 1145, STAT New 10/25/2024 12:14 PM EDT 4.5 g 2 20 mL/hr piperacillin-tazobactam (Zosyn) 4.5 g in sodium chloride 0.9% 100 mL IVPB (vial adapter required) 4.5 g, Intravenous, Every 6 hours, 28 doses, First dose on Thu10/25/24 at 1800, Last dose on Thu11/01/24 at 1200, Routine New Bag 10/30/2024 12:00 PM EDT 4.5 g 36.7 mL/hr Bag 10/30/2024 5:24 AM EDT 4.5 g 36.7 mL/hr 10/30/2024 12:39 AM EDT 4.5 g 36.7 mL/hr piperacillin-tazobactam (Zosyn) 4.5 g in sodium chloride 0.9% 100 mL IVPB (vial adapter required) 4.5 g, Intravenous, Every 6 hours, 4 doses, First dose (after last modification) on Thu10/30/24 at 1800, Last dose on Thu10/31/24 at 1200, Routine 10/31/2024 12:46 PM EDT 4.5 g 36.7 mL/hr 10/31/2024 5:08 AM EDT 4.5 g 36.7 mL/hr 10/31/2024 12:16 AM EDT 4.5 g 36.7 mL/hr potassium chloride CR (Klor-Con) ER tablet 20 mEq 20 mEq, Oral, Once, 1 dose, On Thu10/26/24 at 1900, Routine Given 10/26/2024 6:58 PM EDT 20 mEq potassium chloride CR (Klor-Con) ER tablet 40 mEq 40 mEq, Oral, Once, 1 dose, On Thu10/26/24 at 1700, Routine Given 10/26/2024 5:01 PM EDT 40 mEq rivaroxaban (Xarelto) tablet 20 mg 20 mg, Oral, Every evening, First dose on Thu10/25/24 at 1700, Until Discontinued, Routine Given 10/31/2024 5:01 PM EDT 20 mg Given 10/30/2024 5:23 PM EDT 20 mg Given 10/29/2024 5:23 PM EDT 20 mg rOPINIRole (Requip) tablet 1 mg 1 mg, Oral, 2 times daily, First dose on Thu10/25/24 at 2100, Until Discontinued, RoutineIndications:Restless Leg Syndrome Given 10/31/2024 9:09 AM EDT 1 m g Given 10/30/2024 9:13 PM EDT 1 mg Given 10/30/2024 8:14 AM EDT 1 mg sodium chloride 0.9 % flush 10 mL 10 mL, Intravenous, Every 12 hours, First dose on Thu10/25/24 at 1335, Until Discontinued, Routine Given 10/31/2024 12:02 PM EDT 10 mL Given 10/31/2024 12:49 AM EDT 10 mL Given 10/30/2024 1:01 PM EDT 10 mL sodium chloride 0.9 % flush 10 mL 10 mL, Intravenous, As needed, Starting on Thu10/25/24 at 1331, Until Thu10/31/24 at 1934, Routine, line care Given 10/29/2024 12:11 PM EDT 10 mL Tiotropium [place] Monohydrate (Spiriva Respimat) 2.5 MCG/ACT inhaler 2 puff 2 puff, Inhalation, Daily, First dose on Thu10/25/24 at 1340, Until Discontinued Given 10/31/2024 9:09 AM EDT 2 pu ffs Given 10/30/2024 9:14 AM EDT 2 puffs Given 10/29/2024 8:30 AM EDT 2 puffs vancomycin (Vancocin) 2,500 mg in sodium chloride 0.9 % 500 mL IVPB 2,500 mg (rounded from 2,380 mg = 20 mg/kg 119 kg), Intravenous, Once, 1 dose, On Thu10/25/24 at 1145, at 228 mL/hr, STAT Given 10/25/2024 12:45 PM EDT 2,500 mg 228 mL/hr Vancomycin HCl in NaCl (Vancocin) IVPB 1,000 mg 1,000 mg, Intravenous, Every 12 hours, First dose on Thu10/26/24 at 0100, Until Discontinued, at 250 mL/hr, Routine Given 10/26/2024 12:16 AM EDT 1,000 mg 250 mL/hr documented in this encounter Active and Recently Administered Medications Times are shown in EDT. Scheduled Medication Order 10/29/2024 10/30/2024 10/31/2024 acetaminophen (Tylenol) tablet 650 mg 650 mg, Oral, Every 8 hours scheduled, First dose (after last modification) on Thu10/25/24 at 1600, Until Discontinued, Routine 0523 (Given - Provider: Abida Ken)1500 (Given - Provider: Flor Pierre RN)2153 (Given - Provider: Marion Tate) 0523 (Not Given - Provider: Marion Tate - Reason: Patient/family refused)1302 (Given - Provider: Flor Pierre RN)2113 (Given - Provider: Tamara Kumar, JOSE MARTIN) 0509 (Not Given - Provider: Tamara Kumar RN - Reason: Patient/family refused)1246 (Given - Provider: Lisa Rankin RN) albuterol (Proventil) (2.5 MG/3ML) 0.083% nebulizer solution 2.5 mg 2.5 mg, Nebulization, Every 12 hours, First dose on Thu10/26/24 at 0820, Until Discontinued, Routine 0901 (Given - Provider: Archana Hare)2034 (Given - Provider: Sheron Perez) 0940 (Given - Provider: Archana Haer - Comment: EATING BREAKFAST)2017 (Given - Provider: Sheron Perez) 0840 (Not Given - Provider: Kourtney Givens - Reason: Patient in procedure) atorvastatin (Lipitor) tablet 40 mg 40 mg, Oral, Daily, First dose on Thu10/25/24 at 1340, Until Discontinued, Routine 0815 (Given - Provider: Flor Pierre RN) 0814 (Given - Provider: Flor Pierre RN) 0909 (Given - Provider: Lisa Rankin RN) calcium-vitamin D 500-200 MG-UNIT per tablet 1 tablet 1 tablet, Oral, Daily, First dose on Thu10/25/24 at 1340, Until Discontinued 0813 (Given - Provider: Flor Pierre RN) 0812 (Given - Provider: Flor Pierre RN) 0908 (Given - Provider: Lisa Rankin RN) cetirizine (ZyrTEC) tablet 10 mg 10 mg, Oral, Daily, First dose on Thu10/25/24 at 1340, Until Discontinued, Routine 0815 (Given - Provider: Flor Pierre RN) 0814 (Given - Provider: Flor Pierre RN) 0909 (Given - Provider: Lisa Rankin RN) dexamethasone (Decadron) tablet 2 mg 2 mg, Oral, Every 12 hours, First dose on Thu10/26/24 at 1155, Until Discontinued, Routine 0814 (Given - Provider: Flor Pierre RN)2154 (Given - Provider: Marion Tate) 0814 (Given - Provider: Flor Pierre RN)2113 (Given - Provider: Tamara Kumar RN) 0909 (Given - Provider: Lisa Rankin RN) FLUoxetine (PROzac) capsule 40 mg 40 mg, Oral, Daily, First dose on Thu10/25/24 at 1340, Until Discontinued 0814 (Given - Provider: Flor Pierre RN) 0813 (Given - Provider: Flor Pierre RN) 0908 (Given - Provider: Lisa Rankin RN) gabapentin (Neurontin) capsule 600 mg 600 mg, Oral, 4 times daily, First dose on Thu10/25/24 at 1800, Until Discontinued, Routine 0814 (Given - Provider: Flor Pierre RN)1500 (Given - Provider: Flor Pierre RN)1723 (Given - Provider: Flor Pierre RN)2153 (Given - Provider: Marion Tate) 0813 (Given - Provider: Flor Pierre RN)1301 (Given - Provider: Flor Pierre RN)1723 (Given - Provider: Flor Pierre RN)2113 (Given - Provider: Tamara Kumar RN) 0908 (Given - Provider: Lisa Rankin RN)1245 (Given - Provider: Lisa Rankin RN)1701 (Given - Provider: Lisa Rankin RN) insulin glargine-yfgn 100 UNIT/ML injection 25 Units (CANCELED) 25 Units, Subcutaneous, Nightly, First dose (after last modification) on Thu10/29/24 at 2100, Until Discontinued, Routine 2152 (Given - Provider: Marion Tate) 2110 (Given - Provider: Tamara Kumar, RN) insulin glargine-yfgn 100 UNIT/ML injection 30 Units 30 Units, Subcutaneous, Nightly, First dose (after last modification) on Thu10/31/24 at 2100, Until Discontinued, Routine insulin lispro (Admelog) 100 units/mL injection - Correction - Resistant Dose 0-10 Units, Subcutaneous, 3 times daily with meals, First dose on Thu10/25/24 at 1340, Until Discontinued, Routine 0919 (Given - Provider: Flor Pierre RN)1158 (Given - Provider: Flor Pierre RN)1722 (Given - Provider: Flor Pierre RN) 0813 (Given - Provider: Flor Pierre RN)1256 (Given - Provider: Flor Pierre RN)1722 (Given - Provider: Flor Pierre RN) 0908 (Given - Provider: Lisa Rankin RN)1246 (Given - Provider: Lisa Rankin RN)1657 (Not Given - Provider: Lisa Rankin RN - Reason: Order parameters not met) insulin lispro (Admelog) injection - Correction - Nighttime Dose 0-3 Units, Subcutaneous, 2 times nightly (2100 & 030), First dose on Thu10/25/24 at 2100, Until Discontinued, Routine 030 (Given - Provider: Abida Ken)2204 (Given - Provider: Marion Tate) 326 (Given - Provider: Marion Tate)2111 (Given - Provider: Tamara Kumar, RN) 035 (Given - Provider: Tamara Kumar, JOSE MARTIN) Insulin Lispro (Admelog, HumaLOG) 100 UNIT/ML injection 15 Units 15 Units, Subcutaneous, 3 times daily with meals, First dose (after last modification) on Thu10/29/24 at 0830, Until Discontinued, Routine 0830 (Given - Provider: Flor Pierre RN)1159 (Given - Provider: Flor Pierre RN)1722 (Given - Provider: Flor Pierre RN) 0812 (Given - Provider: Flor Pierre RN)1257 (Given - Provider: Flor Pierre RN)1723 (Given - Provider: Flor Pierre RN) 0907 (Given - Provider: Lisa Rankin RN)1245 (Given - Provider: Lisa Rankin RN)1702 (Given - Provider: Lisa Rankin RN) lactobacillus acidophilus (Floranex) packet 1 packet 1 packet, Oral, 3 times daily with meals, First dose on Thu10/28/24 at 1730, Until Discontinued, Routine 0813 (Given - Provider: Flor Pierre RN)1157 (Given - Provider: Flor Pierre RN)1723 (Given - Provider: Flor Pierre RN) 0812 (Given - Provider: Flor Pierre RN)1256 (Given - Provider: Flor Pierre RN)1730 (Given - Provider: Flor Pierre RN) 0909 (Given - Provider: Lisa Rankin RN)1247 (Given - Provider: Lisa Rankin RN)1702 (Given - Provider: Lisa Rankin RN) magic mouthwash BLM (FIRST-Mouthwash) suspension 15 mL (CANCELED) 15 mL, Swish & Spit, 4 times daily before meals and nightly, First dose on Thu10/25/24 at 1340, Until Discontinued, Routine 0830 (Given - Provider: Flor Pierre RN)1157 (Given - Provider: Flor Pierre RN)1746 (Given - Provider: Flor Pierre RN)2206 (Given - Provider: Marion Tate) 0812 (Given - Provider: Flor Pierre RN)1256 (Given - Provider: Flor Pierre RN)1730 (Given - Provider: Flor Pierre RN)2118 (Given - Provider: Tamara Kumar RN) magic mouthwash BLM (FIRST-Mouthwash) suspension 15 mL 15 mL, Swish & Spit, 4 times daily before meals and nightly, First dose on Thu10/31/24 at 0815, Until Discontinued, Routine 0907 (Given - Provider: Lisa Rankin RN)1247 (Given - Provider: Lisa Rankin RN)1701 (Given - Provider: Lisa Rankin RN) magnesium oxide (Mag-Ox) tablet 400 mg 400 mg, Oral, 2 times daily, First dose on Thu10/25/24 at 1340, Until Discontinued 0830 (Given - Provider: Flor Pierre RN)215 (Given - Provider: Marion Tate) 0813 (Given - Provider: Flor Pierre RN)211 (Given - Provider: Tamara Kumar RN) 0909 (Given - Provider: iLsa Rankin RN) magnesium sulfate IVPB 2 g (COMPLETED) 2 g, Intravenous, Once, 1 dose, On Thu10/29/24 at 0830, Routine 0813 (New Bag - Provider: Flor Pierre RN) magnesium sulfate IVPB 2 g (COMPLETED) 2 g, Intravenous, Once, 1 dose, On Thu10/30/24 at 1715, Routine 1730 (New Bag - Provider: Flor Pierre RN) magnesium sulfate IVPB 2 g (COMPLETED) 2 g, Intravenous, Once, 1 dose, On Thu10/31/24 at 0730, Routine 0905 (New Bag - Provider: Lisa Rankin RN) metoprolol succinate XL (Toprol-XL) 24 hr tablet 50 mg 50 mg, Oral, Daily, First dose on Corrina 10/27/24 at 1010, Until Discontinued, Routine 0814 (Given - Provider: Flor Pierre RN) 0813 (Given - Provider: Flor Pierre RN) 0909 (Given - Provider: Lisa Rankin RN) miconazole (Micotin) 2 % cream 1 Application Topical, 2 times daily, First dose on Thu10/26/24 at 2100, Until Discontinued, Routine 0830 (Given - Provider: Flor Pierre RN)2200 (Given - Provider: Marion Tate) 0914 (Given - Provider: Flor Pierre RN)2113 (Given - Provider: Tamara Kumar, JOSE MARTIN) 0909 (Given - Provider: Lisa Rankin, JOSE MARTIN) mometasone-formoterol (Dulera 100) 100-5 MCG/ACT inhaler 2 puff(Linked Group 1) 2 puff, Inhalation, 2 times daily, First dose on Thu10/25/24 at 1340, Until Discontinued 0830 (Given - Provider: Flor Pierre RN)2200 (Given - Provider: Marion Tate) 0914 (Given - Provider: Flor Pierre RN)211 (Given - Provider: Tamara Kumar RN) 0910 (Given - Provider: Lisa Rankin, JOSE MARTIN) montelukast (Singulair) tablet 10 mg 10 mg, Oral, Nightly, First dose on Thu10/25/24 at 2100, Until Discontinued, Routine 215 (Given - Provider: Marion Tate) 2112 (Given - Provider: Tamara Kumar RN) nystatin (Mycostatin) 370658 UNIT/ML suspension 500,000 Units 500,000 Units (5 mL), Swish & Swallow, 4 times daily, First dose on Thu10/25/24 at 1400, Until Discontinued, Routine 0814 (Given - Provider: Flor Pierre RN)1500 (Given - Provider: Flor Pierre RN)1723 (Given - Provider: Flor Pierre RN)2154 (Given - Provider: Marion Tate) 0817 (Given - Provider: Flor Pierre RN)1301 (Given - Provider: Flor Pierre RN)1723 (Given - Provider: Flor Pierre RN)211 (Given - Provider: Tamara Kumar RN) 0909 (Given - Provider: Lisa Rankin, JOSE MARTIN)1246 (Given - Provider: Lisa Rankin, JOSE MARTIN)1702 (Given - Provider: Lisa Rankin, JOSE MARTIN) pantoprazole (Protonix) EC tablet 40 mg 40 mg, Oral, Daily, First dose on Thu10/25/24 at 1340, Until Discontinued, Routine 0815 (Given - Provider: Flor Pierre RN) 0814 (Given - Provider: Flor Pierre RN) 0909 (Given - Provider: Lisa Rankin RN) piperacillin-tazobactam (Zosyn) 4.5 g in sodium chloride 0.9% 100 mL IVPB (vial adapter required) (CANCELED) 4.5 g, Intravenous, Every 6 hours, 28 doses, First dose on Thu10/25/24 at 1800, Last dose on Thu11/01/24 at 1200, Routine 0523 (New Bag - Provider: Abida Ken)1157 (New Bag - Provider: Flor Pierre RN)1723 (New Bag - Provider: Flor Pierre RN) 0039 (New Bag - Provider: Marion Tate)0524 (New Bag - Provider: Marion Tate)1200 (New Bag - Provider: Flor Pierre RN) piperacillin-tazobactam (Zosyn) 4.5 g in sodium chloride 0.9% 100 mL IVPB (vial adapter required) (COMPLETED) 4.5 g, Intravenous, Every 6 hours, 4 doses, First dose (after last modification) on Thu10/30/24 at 1800, Last dose on Thu10/31/24 at 1200, Routine 1722 (New Bag - Provider: Flor Pierre RN) 0016 (New Bag - Provider: Tamara Kumar, JOSE MARTIN)0508 (New Bag - Provider: Tamara Kumar, JOSE MARTIN)1246 (New Bag - Provider: Lisa Ranikn RN) rivaroxaban (Xarelto) tablet 20 mg 20 mg, Oral, Every evening, First dose on Thu10/25/24 at 1700, Until Discontinued, Routine 1723 (Given - Provider: Flor Pierre RN) 1723 (Given - Provider: Flor Pierre RN) 1701 (Given - Provider: Lisa Rankin RN) rOPINIRole (Requip) tablet 1 mg 1 mg, Oral, 2 times daily, First dose on Thu10/25/24 at 2100, Until Discontinued, Routine 0815 (Given - Provider: Flor Pierre RN)2153 (Given - Provider: Marion Tate) 0814 (Given - Provider: Flor Pierre RN)2113 (Given - Provider: Tamara Kumar, JOSE MARTIN) 0909 (Given - Provider: Lisa Rankin RN) sodium chloride 0.9 % flush 10 mL(Linked Group 2) 10 mL, Intravenous, Every 12 hours, First dose on Thu10/25/24 at 1335, Until Discontinued, Routine 0129 (Given - Provider: Abida Ken)1444 (Canceled Entry - Provider: Flor Pierre RN) 0041 (Given - Provider: Marion Tate)1301 (Given - Provider: Flor Pierre RN) 0049 (Given - Provider: Tamara Kumar RN)1202 (Given - Provider: Lisa Rankin RN) Tiotropium [place] Monohydrate (Spiriva Respimat) 2.5 MCG/ACT inhaler 2 puff(Linked Group 1) 2 puff, Inhalation, Daily, First dose on Thu10/25/24 at 1340, Until Discontinued 0830 (Given - Provider: Flor Pierre RN) 0914 (Given - Provider: Flor Pierre RN) 0909 (Given - Provider: Lisa Rankin RN) PRN Medication Order 10/29/2024 10/30/2024 10/31/2024 benzonatate (Tessalon) capsule 100 mg 100 mg, Oral, 3 times daily PRN, Starting on Thu10/25/24 at 1335, Until Thu10/31/24 at 1934, Routine, cough 1258 (Given - Provider: Flor Pierre RN) calcium carbonate (Tums) chewable tablet 500 mg 500 mg, Oral, 4 times daily PRN, Starting on Thu10/25/24 at 1703, Until Thu10/31/24 at 1934, Routine, indigestion, heartburn 0814 (Given - Provider: Flor Pierre RN)1521 (Given - Provider: Flor Pierre RN) 0814 (Given - Provider: Flor Pierre RN)1258 (Given - Provider: Flor Pierre RN) dextrose 50 % solution 12.5-25 g(Linked Group 3) 12.5-25 g, Intravenous, Every 15 min PRN, Starting on Thu10/25/24 at 1339, Until Thu10/31/24 at 1934, Routine, low blood sugar glucagon (human recombinant) injection 1 mg(Linked Group 3) 1 mg, Intramuscular, Every 15 min PRN, Starting on Thu10/25/24 at 1339, Until Thu10/31/24 at 1934, Routine, low blood sugar per Hypoglycemia Prevention and Treatment protocol glucose (Glutose) 40 % oral gel 15-30 grams of glucose(Linked Group 3) 15-30 grams of glucose, Sublingual, Every 15 min PRN, Starting on Thu10/25/24 at 1339, Until Thu10/31/24 at 1934, Routine, low blood sugar, per Hypoglycemia Prevention and Treatment protocol guaiFENesin (Mucinex) 12 hr tablet 600 mg 600 mg, Oral, 2 times daily PRN, Starting on Thu10/25/24 at 1619, Until Thu10/31/24 at 1934, Routine, cough hydrOXYzine HCl (Atarax) tablet 25 mg 25 mg, Oral, Every 8 hours PRN, Starting on Thu10/25/24 at 1335, Until Thu10/31/24 at 1934, Routine, anxiety 0815 (Given - Provider: Flor Pierre RN)1723 (Given - Provider: Flor Pierre RN) 0813 (Given - Provider: Flor Pierre RN) ipratropium-albuterol (Duo-Neb) 0.5-2.5 mg/3 mL nebulizer solution 3 mL 3 mL, Nebulization, Every 6 hours PRN, Starting on Thu10/28/24 at 1548, Until Thu10/31/24 at 1934, Routine, wheezing loperamide (Imodium A-D) tablet 2 mg 2 mg, Oral, 4 times daily PRN, Starting on Thu10/25/24 at 1620, Until Thu10/31/24 at 1934, Routine, diarrhea magic butt balm (Cholestyramine) ointment Topical, Every 1 hour PRN, Starting on Thu10/26/24 at 1639, Until Thu10/31/24 at 1934, Routine, diaper rash 2200 (Given - Provider: Marion Tate) 2114 (Given - Provider: Tamara Kumar, JOSE MARTIN) melatonin tablet 3 mg 3 mg, Oral, Nightly PRN, Starting on Thu10/25/24 at 1331, Until Thu10/31/24 at 1934, Routine, sleep 2158 (Given - Provider: Marion Tate) ondansetron (Zofran) 4 MG/5ML solution 4 mg(Linked Group 4) 4 mg, Oral, Every 6 hours PRN, Starting on Thu10/25/24 at 1331, Until Thu10/31/24 at 1934, Routine, nausea, vomiting 1623 (See Alternative - Provider: Flor Pierre, JOSE MARTIN) 192 (See Alternative - Provider: Tamara Kumar, JOSE MARTIN) ondansetron (Zofran) injection 4 mg(Linked Group 4) 4 mg, Intravenous, Every 6 hours PRN, Starting on Thu10/25/24 at 1331, Until Thu10/31/24 at 1934, Routine, vomiting, nausea 1623 (See Alternative - Provider: Flor Pierre RN) 192 (See Alternative - Provider: Tamara Kumar, JOSE MARTIN) ondansetron ODT (Zofran-ODT) disintegrating tablet 4 mg(Linked Group 4) 4 mg, Oral, Every 6 hours PRN, Starting on Thu10/25/24 at 1331, Until Thu10/31/24 at 1934, Routine, nausea, vomiting 1623 (Given - Provider: Flor Pierre RN) 1922 (Given - Provider: Tamara Kumar, JOSE MARTIN) sodium chloride 0.9 % flush 10 mL(Linked Group 2) 10 mL, Intravenous, As needed, Starting on Thu10/25/24 at 1331, Until Thu10/31/24 at 1934, Routine, line care 1211 (Given - Provider: Flor Pierre RN) Linked Groups Order Group 1: Tiotropium [place] Monohydrate (Spiriva Respimat) 2.5 MCG/ACT inhaler 2 puffJump to med 2 puff, Inhalation, Daily, First dose on Thu10/25/24 at 1340, Until Discontinued And mometasone-formoterol (Dulera 100) 100-5 MCG/ACT inhaler 2 puffJump to med 2 puff, Inhalation, 2 times daily, First dose on Thu10/25/24 at 1340, Until Discontinued Group 2: Insert peripheral IV (COMPLETED) Once, On Thu10/25/24 at 1332, For 1 occurrence And Saline lock IV (CANCELED) Once, On Thu10/25/24 at 1332, For 1 occurrence And sodium chloride 0.9 % flush 10 mLJump to med 10 mL, Intravenous, Every 12 hours, First dose on Thu10/25/24 at 1335, Until Discontinued, Routine And sodium chloride 0.9 % flush 10 mLJump to med 10 mL, Intravenous, As needed, Starting on Thu10/25/24 at 1331, Until Thu10/31/24 at 1934, Routine, line care Group 3: glucose (Glutose) 40 % oral gel 15-30 grams of glucoseJump to med 15-30 grams of glucose, Sublingual, Every 15 min PRN, Starting on Thu10/25/24 at 1339, Until Thu10/31/24 at 1934, Routine, low blood sugar, per Hypoglycemia Prevention and Treatment protocol Or dextrose 50 % solution 12.5-25 gJump to med 12.5-25 g, Intravenous, Every 15 min PRN, Starting on Thu10/25/24 at 1339, Until Thu10/31/24 at 1934, Routine, low blood sugar Or glucagon (human recombinant) injection 1 mgJump to med 1 mg, Intramuscular, Every 15 min PRN, Starting on Thu10/25/24 at 1339, Until Thu10/31/24 at 1934, Routine, low blood sugar per Hypoglycemia Prevention and Treatment protocol Group 4: ondansetron ODT (Zofran-ODT) disintegrating tablet 4 mgJump to med 4 mg, Oral, Every 6 hours PRN, Starting on Thu10/25/24 at 1331, Until Thu10/31/24 at 1934, Routine, nausea, vomiting Or ondansetron (Zofran) injection 4 mgJump to med 4 mg, Intravenous, Every 6 hours PRN, Starting on Thu10/25/24 at 1331, Until Thu10/31/24 at 1934, Routine, vomiting, nausea Or ondansetron (Zofran) 4 MG/5ML solution 4 mgJump to med 4 mg, Oral, Every 6 hours PRN, Starting on Tu10/25/24 at 1331, Until 10/31/24 at 1934, Routine, nausea, vomiting documented in this encounter Additional Health Concerns Infection Onset Date Last Indicated Resolved Time COVID-19 Rule-Out 10/25/2024 10/25/2024 10/25/2024 12:13 PM EDT Respiratory Rule-Out 10/25/2024 10/25/2024 025 3:07 PM EDT 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, [employer] Panic 10/26/2024 10/31/2024 Assessment Noted Time PHQ-9 Depression Total Score: 0 09/01/19 3:26 PM EDT A fall risk assessment has been complete d for the patient 10/06/2024 2:29 PM EDT A Body Mass Index follow-up plan has been documented for the patient 10/31/2024 4:09 PM EDT documented as of this encounter Care Teams [employer] Relationship Specialty Start Date End Date Laurie Gutierrez MD [address] [place] [address] PCP - General 12/09/23 Joshua Martínez MD [address] [place] [address] [id number] [place] [address] Consulting Physician Radiation Oncology 09/19/24 Jasmina Smith LPN [employer] [place] [address] TCM Nurse 10/19/24 11/01/24 documented as of this encounter
--- OUTSIDE RECORDS SUMMARY | 2024-10-25 12:45 | XMS_ITS | Encounter Summary ---
Author Organization [facility] Address [address] [place] [address] Care Team Providers Care Shirt Hemmer Name Role Phone Laurie Gutierrez MD Primary Care Provider [phone] Joshua Martínez MD Unavailable Jasmina Smith LPN Unavailable Unavailable Encounter Details Date Type Department Care Team (Latest Contact Info) Description 10/25/2024 12:45 PM EDT - 10/25/2024 11:59 PM EDT Hospital Encounter [facility] CC Radiation [id number] [place] [address] Discharge Disposition: Still a Patient 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 [...] [facility] the [facility] m [facility], were [facility] or living in a fpc (including now)? No 10/14/2024 Humiliation, Afraid, Rape, [...] living in a fpc (including now)? No 10/26/2024 CAGE ASSESSMENT Answer [...] drink first t laurie in the morning (EYE-APPLICATION PROGRAMMER ANALYST) to steady your nerves or to get rid of a hangover? 0 11/19/2023 CAGE Questionnaire Score 0 024 Utilities Answer Date Recorded In the past 12 months has e [employer], gas, oil, or water company threatened to [...] Author No Risk Indicated 10/25/2024 10:50 AM JULIAT Ashu Pierre RN * Question Answer Date of Assessment Author 1. Wish to be (Past 1 Month) No 025 10:50 AM JULIAT Ashu Pierre RN 2. Non-Specific Active Suici radha Thoughts (Past 1 Month) No 10/25/2024 10:50 AM EDT Sweta Pierre RN 6. Suicidal Behavior (Lifetime) No 10:50 AM Ashu Santana RN documented as of this encounter Medications [...] misc 09/19/2024 5 Blood Glucose Monitoring Suppl (Tagora Verio Flex System) w/Device kit 09/19/2024 5 carvedilol (Coreg) 25 MG tablet Take 1 tablet by mouth 2 times a day. 5 ciclopirox (Penlac) 8 % solution Apply over affected nail fold daily. 5 Continuous Glucose Blindstitch Lapel Padder (Dexcom G7 Blindstitch Lapel Padder) device USE TO MEASURE BLOOD SUGAR DIRECTED 09/29/2024 5 Continuous Glucose Sensor (Dexcom G6 Sensor) misc USE DIRECTED TO MEASURE BLOOD SUGAR. REPLACE SENSOR EVERY 10 DAYS 09/01/2024 5 FREESTYLE LITE test strip USE TO TEST BLOOD SUGAR 3 TIMES EACH DAY AND NEEDED 09/01/2024 gabapentin (Neurontin) 600 MG tablet Take 1 tablet by mouth 4 times a day. insulin glargine (Lantus) 100 UNIT/ML injection vial Inject 20 Units under the skin nightly. 5 insulin glargine-yfgn 100 UNIT/ML injection vial Inject 20 Units under the skin nightly. 10 mL 3 10/18/2024 5 Insulin Lispro (Admelog, HumaLOG) 100 UNIT/ML injection vial Inject 15 Units under the skin 3 times a day with meals. Can be adjusted per the MD at [facility] 10 mL 12 10/18/2024 5 Lantus SoloStar 100 UNIT/ML injection pen Inject under the skin 2 times a day. 10/18/2024 lidocaine (Xylocaine) 2 % solution Take 5 mL by mouth as needed for mild pain. 10/18/2024 metoprolol succinate XL (Toprol-XL) 25 MG 24 hr tablet Take 2 tablets by mouth daily. Do not crush or chew. 60 tablet 11 10/25/2024 nystatin (Mycostatin) 490888 UNIT/ML suspension Swish and swallow 5 mL [...] Pav CC Head, Neck & Respiratory 800 [facility], 2nd [place] [address] 11/29/2024 11:00 AM EDT Office Visit Pav CC Head, Neck & Respiratory 800 [facility], 2nd [place] [address] Satnam Colvin MD 800 [facility] [address] [place] [address] 11/29/2024 12:30 PM EDT Appointment [facility] 1 [address] [place] [address] 11/30/2024 1:30 PM EDT Appointment [facility] 1 [address] [place] [address] 12/01/2024 2:00 PM EDT Appointment [facility] 1 [address] [place] [address] 12/06/2024 11:40 AM EDT Appointment [facility] CC Radiation 800 [facility]. [id number] [place] [address] Haven Blum, EMBEDDED LINUX DEVELOPER 800 [facility] [address] [place] [address] 01/19/2025 9:30 AM EDT Appointment P[facility] S Radiology [address], 1st [place] [address] 01/19/2025 10:45 AM EDT Office Visit [place] [facility] [address], 1st [place] [address] Abhilash Bangura MD [address] [place] [address] 03/08/2025 1:00 PM EDT Office Visit [facility] [place] 800 [facility]. [address] [place] [address] Teresita Oconnell MD [address] [place] [address] documented as of this encounter Visit Diagnoses [...] documented as of this encounter Care Teams Shirt Hemmer Relationship Specialty Start Date End Date Laurie Gutierrez MD [address] [place], [place] [phone] PCP - General 12/09/23 Joshua Martínez MD [address] [place] [address] [address] [place] [address] Consulting Physician Radiation Oncology 09/19/24 Jasmina Smith LPN VALUE-BASED [place] [address] TCM Nurse 10/19/24 11/01/24 documented as of this encounter
--- OUTSIDE RECORDS SUMMARY | 2024-10-26 11:30 | XMS_ITS | Encounter Summary ---
Author Organization Healthcare Address [address] [place] [address] Care Team Providers Care Wood Carver Hand Name Role Phone Laurie Gutierrez MD Primary Care Provider [phone] Joshua Martínez MD Unavailable Jasmina Smith LPN Unavailable Unavailable Encounter Details Date Type Department Care Team (Latest Contact Info) Description 10/26/2024 11:30 AM EDT - 10/26/2024 11:59 PM EDT Hospital Encounter [facility] Radiation [address] [id number] [place] [address] Discharge Disposition: Still a Patient 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 [...] any time in the past 12 m [facility], were you homeless or living in a [...] any time in the past 12 m [facility], were you homeless or living [...] drink first t laurie in the morning (EYE-MFTS) to steady your nerves or to get rid of a hangover? 0 10/27/2024 CAGE Questionnaire Score 0 025 Utilities Answer Date Recorded In the past 12 months has e [employer], gas, oil, or water company threatened [...] (Past 1 Month) No 025 9:12 AM JULIAT Daya Chang RN 2. Non-Specific Active Suici radha Thoughts (Past 1 Month) No 10/26/2024 9:12 AM EDT Daya Chang RN 6. Suicidal Behavior (Lifetime) No 9:12 AM EDT Daya Chang RN documented as of this encounter Medications [...] Take 1 tablet by mouth every evening. carvedilol (Coreg) 25 MG tablet Take 1 tablet by mouth 2 times a day. 5 gabapentin (Neurontin) 600 MG tablet Take 1 tablet by mouth 4 times a day. 5 insulin glargine (Lantus) 100 UNIT/ML injection vial Inject 20 Units under the skin nightly. metoprolol succinate XL (Toprol-XL) 25 MG 24 hr tablet Take 2 tablets by mouth daily. Do not crush or chew. 60 tablet 11 10/25/2024 5 nystatin (Mycostatin) 069884 UNIT/ML suspension Swish and swallow 5 mL [...] nausea or vomiting. 30 tablet 3 10/04/2024 documented as of this encounter Plan of Treatment Upcoming Encounters Date Type Department Care Team (Late st Contact Info) Description 11/29/2024 10:30 AM EDT Clinical Support Pav [facility] Head, Neck & Respiratory [address] [facility], 2nd [place] [address] 11/29/2024 11:00 AM EDT Office Visit [facility] Head[facility] Neck & Respiratory [address] [facility], [address]nd [place] [address] Satnam Colvin MD [address] [facility] [address] [place] [address] 11/29/2024 12:30 PM EDT Appointment [facility] 1 [address] [place] [address] 11/30/2024 1:30 PM EDT Appointment [facility] 1 [address] [place] [address] 12/01/2024 2:00 PM EDT Appointment [facility] 1 [address] [place] [address] 12/06/2024 11:40 AM EDT Appointment [facility] Radiation [address] [facility]. [id number] [place] [address] Haven Blum, SOFTWARE ADMINISTRATOR 800 [facility] [address] [place] [address] 01/19/2025 9:30 AM EDT Appointment P[facility] S Radiology [address], [address] [place] [address] 01/19/2025 10:45 AM EDT Office Visit [facility] [address], 1st [place] [address] Abhilash Bangura MD [address] [place] [address] 03/08/2025 1:00 PM EDT Office Visit [facility] [place] [address] [place] [address] Teresita Oconnell MD [address] [place] [address] documented as of this encounter [...] documented as of this encounter Care Teams Wood Carver Hand Relationship Specialty Start Date End Date Laurie Gutierrez MD [address] [place] [address] PCP - General 12/09/23 Joshua Martínez MD [address] [place] [address] Consulting Physician Radiation Oncology 09/19/24 Jasmina Smith LPN VALUE-BASED [place] [address] TCM Nurse 10/19/24 11/01/24 documented as of this encounter
--- OUTSIDE RECORDS SUMMARY | 2024-10-27 11:45 | XMS_ITS | Encounter Summary ---
Author Organization Healthcare Address [address] [place] [address] Care Team Providers Care Senior Project Engineer Name Role Phone Laurie Gutierrez MD Primary Care Provider [phone] Joshua Martínez MD Unavailable Jasmina Smith LPN Unavailable Unavailable Encounter Details Date Type Department Care Team (Latest Contact Info) Description 10/27/2024 11:45 AM EDT - 10/27/2024 11:59 PM EDT Hospital Encounter [facility] Radiation [address] [id number] [place] [address] Discharge Disposition: Still a Patient 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 [...] any time in the past 12 m [facility], were you homeless or living in a [...] any time in the past 12 m [facility], were you homeless or living in [...] drink first t laurie in the morning (EYE-FIREARMS MODEL MAKER) to steady your nerves or to get rid of a hangover? 0 10/27/2024 CAGE Questionnaire Score 0 025 Utilities Answer Date Recorded In the past 12 months has e [employer], gas, oil, or water company threatened to [...] Date of Assessment Author No Risk Indicated 10/27/2024 8:45 PM EDT Abida Ken * Question Answer Date of Assessment Author 1. Wish to be (Past 1 Month) No 025 8:45 PM EDT Abida Ken 2. Non-Specific Active Suici radha Thoughts (Past 1 Month) No 10/27/2024 8:45 PM EDT Abida Ken 6. Suicidal Behavior (Lifetime) No 8:45 PM EDT Abida Ken documented as of this encounter Medications at [...] or vomiting. 30 tablet 3 10/04/2024 5 carvedilol (Coreg) 25 MG tablet Take 1 tablet by mouth 2 times a day. 5 insulin glargine (Lantus) 100 UNIT/ML injection vial Inject 20 Units under the skin nightly. 5 metoprolol succinate XL (Toprol-XL) 25 MG 24 hr tablet Take 2 tablets by mouth daily. Do not crush or chew. 60 tablet 11 10/25/2024 5 nystatin (Mycostatin) 823403 UNIT/ML suspension Swish and swallow 5 mL 4 times a day for 39 doses. 195 mL 10/18/2024 documented as of this encounter Plan of Treatment Upcoming Encounters Date Type Department Care Team ([facility] st Contact Info) Description 11/29/2024 10:30 AM EDT Clinical Support Pav CC Head, Neck & Respiratory 800 [facility], 2nd [place] [address] 11/29/2024 11:00 AM EDT Office Visit Pav [facility] Head, Neck & Respiratory [address] [facility], 2nd [place] [address] Satnam Colvin MD 800 [facility] [address] [place] [address] 11/29/2024 12:30 PM EDT Appointment [facility] 1 [address] [place] [address] 11/30/2024 1:30 PM EDT Appointment [facility] 1 [address] [place] [address] 12/01/2024 2:00 PM EDT Appointment [facility] 1 [address] [place] [address] 12/06/2024 11:40 AM EDT Appointment [facility] Radiation [address] [facility] [place]. [id number] [place] [address] Haven Blum, DBAS 800 [facility] [address] [place] [address] 01/19/2025 9:30 AM EDT Appointment P[facility] S Radiology [address], 1st [place] [address] 01/19/2025 10:45 AM EDT Office Visit [facility] [address], 1st [place] [address] Abhilash Bangura MD [address] [place] [address] 03/08/2025 1:00 PM EDT Office Visit [facility] [place] W[place]o [address] [place] [address] Teresita Oconnell MD [address] [place] [address] documented as of this encounter [...] as of this encounter Care Teams Senior Project Engineer Relationship Specialty Start Date End Date Laurie Gutierrez MD [address] [place] [address] PCP - General 12/09/23 Joshua Martínez MD 800 [facility] [address] [place] [address] Consulting Physician Radiation Oncology 09/19/24 Jasmina Smith LPN VALUE-BASED [place] [address] TCM Nurse 10/19/24 11/01/24 documented as of this encounter
--- OUTSIDE RECORDS SUMMARY | 2024-10-28 08:46 | XMS_ITS | Encounter Summary ---
Author Organization Healthcare Address [address] [place] [address] Care Team Providers Care Lining Finisher Name Role Phone Laurie Gutierrez MD Primary Care Provider [phone] Joshua Martínez MD Unavailable Jasmina Smith LPN Unavailable Unavailable Encounter Details Date Type Department Care Team (Latest Contact Info) Description 10/28/2024 8:46 AM EDT - 10/28/2024 11:59 PM EDT Hospital Encounter [facility] CC Radiation [id number] [place] [address] Discharge Disposition: Still a Patient 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 [...] any time in the past 12 m [facility], were you homeless or living [...] any time in the past 12 m [facility], were you homeless or living in [...] drink first t laurie in the morning (EYE-BUSINESS OFFICE REPRESENTATIVE) to steady your nerves or to get rid of a hangover? 0 10/27/2024 CAGE Questionnaire Score 0 025 Utilities Answer Date Recorded In the past 12 months has e [employer], gas, oil, or water company threatened to [...] Abida Ken 6. Suicidal Behavior (Lifetime) No 7:45 PM EDT Abida Ken documented as [...] 60 tablet 11 10/25/2024 5 nystatin (Mycostatin) 472461 UNIT/ML suspension Swish and swallow 5 mL 4 times a day for 39 doses. 195 mL 10/18/2024 documented as of this encounter Plan of Treatment Upcoming Encounters Date Type Department Care Team ([facility] st Contact Info) Description 11/29/2024 10:30 AM EDT Clinical Support Pav CC Head, Neck & Respiratory 800 [facility], 2nd [place] [address] 11/29/2024 11:00 AM EDT Office Visit [facility] Head[facility] Neck & Respiratory [address] [facility], 2nd [place] [address] Satnam Colvin MD 800 [facility] [address] [place] [address] 11/29/2024 12:30 PM EDT Appointment [facility] 1 [address] [place] [address] 11/30/2024 1:30 PM EDT Appointment [facility] 1 [address] [place] [address] 12/01/2024 2:00 PM EDT Appointment [facility] 1 [address] [place] [address] 12/06/2024 11:40 AM EDT Appointment [facility] CC Radiation [address] [facility]. [id number] [place] [address] Haven Blum, TEAM DRIVER [address] [facility] [address] [place] [address] 01/19/2025 9:30 AM EDT Appointment P[facility] S Radiology [address], 1st [place] [address] 01/19/2025 10:45 AM EDT Office Visit [place] [facility] [address], [address] [place] [address] Abhilash Bangura MD [address] [place] [address] 03/08/2025 1:00 PM EDT Office Visit [facility] [place] Wenceslao [address] [place] [address] Teresita Oconnell MD [address] [place] [address] documented as of this encounter [...] documented as of this encounter Care Teams Lining Finisher Relationship Specialty Start Date End Date Laurie Gutierrez MD [address] [place] [address] PCP - General 12/09/23 Joshua Martínez MD [address] [facility] [address] [place] [address] Consulting Physician Radiation Oncology 09/19/24 Jasmina Smith LPN VALUE-BASED [place] [address] TCM Nurse 10/19/24 11/01/24 documented as of this encounter
--- OUTSIDE RECORDS SUMMARY | 2024-10-31 08:41 | XMS_ITS | Encounter Summary ---
Author Organization Healthcare Address [address] [place] [address] Care Team Providers Care Chemist Water Purification Name Role Phone Laurie Gutierrez MD Primary Care Provider [phone] Joshua Martínez MD Unavailable Jasmina Smith LPN Unavailable Unavailable Encounter Details Date Type Department Care Team (Latest Contact Info) Description 10/31/2024 8:41 AM EDT - 10/31/2024 8:44 AM EDT Hospital Encounter [facility] CC Radiation [id number] [place] [address] Discharge Disposition: Still a Patient 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 [...] place to sleep or slept in a [place] (including now)? No 11/20/2023 PHQ-9 Answer Date [...] [facility] in the [facility] m [facility], were you homeless or living in a [place] (including now)? No 10/14/2024 Humiliation, Afraid, Rape, [...] were you homeless or living in a [place] (including now)? No 10/26/2024 CAGE ASSESSMENT Answer [...] drink first t laurie in the morning (EYE-HAND BULLDOZER) to steady your nerves or to get [...] (Past 1 Month) No 10/31/2024 7:00 AM JULIAT Lisa Rankin RN 2. Non-Specific Active Suici [...] Pav CC Head, Neck & Respiratory 800 [facility], 2nd [place] [address] 11/29/2024 11:00 AM EDT Office Visit Pav CC Head, Neck & Respiratory 800 [facility], 2nd [place] [address] Satnam Colvin MD 800 [facility] Nuria Degroot [address] [place] [address] 11/29/2024 12:30 PM EDT Appointment [facility] 1 [address] [place] [address] 11/30/2024 1:30 PM EDT Appointment [facility] 1 [address] [place] [address] 12/01/2024 2:00 PM EDT Appointment [facility] 1 [address] [place] [address] 12/06/2024 11:40 AM EDT Appointment [facility] CC Radiation 800 [facility]. [id number] [place] [address] Haven Blum, TRAINING DEVELOPER 800 [facility] [address] [place] [address] 01/19/2025 9:30 AM EDT Appointment P[facility] S Radiology [address], 1st [place] [address] 01/19/2025 10:45 AM EDT [facility] [place] [facility] [address], 1st [place] [address] Abhilash Bangura MD [address] [place] [address] 03/08/2025 1:00 PM EDT Office Visit [facility] [place] [facility] [address] [facility]. [address] [place] [address] Teresita Oconnell MD [address] [place] [address] documented as of this [...] documented as of this encounter Care Teams Chemist Water Purification Relationship Specialty Start Date End Date Laurie Gutierrez MD [address] [place] [address] PCP - General 12/09/23 Joshua Martínez MD [address] [place] [phone] Consulting Physician Radiation Oncology 09/19/24 Jasmina Smith LPN VALUE-[place] [address] TCM Nurse 10/19/24 11/01/24 documented as of this encounter
--- OUTSIDE RECORDS SUMMARY | 2024-10-31 08:45 | XMS_ITS | Encounter Summary ---
Author Organization Healthcare Address [address] [place] [address] Care Team Providers Care Middleware Administrator Name Role Phone Laurie Gutierrez MD Primary Care Provider [phone] Joshua Martínez MD Unavailable Jasmina Smith LPN Unavailable Unavailable Encounter Details Date Type Department Care Team (Latest Contact Info) Description 10/31/2024 8:45 AM EDT - 10/31/2024 11:59 PM EDT Hospital Encounter [facility] CC Radiation [id number] [place] [address] Discharge Disposition: Still a Patient 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 [...] [facility] the [facility] m [facility], were you homeless or living in [...] any time in the past 12 m [facility], were you homeless or living in a [...] drink first t laurie in the morning (EYE-CASINO DEALER) to steady your nerves or to get [...] Pav CC Head, Neck & Respiratory 800 [facility], 2nd [place] [address] 11/29/2024 11:00 AM EDT Office Visit Pav CC Head, Neck & Respiratory 800 [facility], 2nd [place] [address] Satnam Colvin MD 800 [facility] [address] [place] [address] 11/29/2024 12:30 PM EDT Appointment [facility] 1 [address] [place] [address] 11/30/2024 1:30 PM EDT Appointment [facility] 1 [address] [place] [address] 12/01/2024 2:00 PM EDT Appointment [facility] 1 [address] [place] [address] 12/06/2024 11:40 AM EDT Appointment [facility] CC Radiation 800 [facility]. [id number] [place] [address] Haven Blum, ANDROID ARCHITECT 800 [facility] [address] [place] [address] 01/19/2025 9:30 AM EDT Appointment [facility] S Radiology [address], 1st [place] [address] 01/19/2025 10:45 AM EDT Office Visit [place] [facility] [address], 1st [place] [address] Abhilash Bangura MD [address] [place] [address] 03/08/2025 1:00 PM EDT Office Visit [facility] [place] [facility] 800 [facility]. 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, ELECTRICAL LINE SPLICER Panic 10/26/2024 10/31/2024 Assessment Noted Time PHQ-9 Depression Total Score: 0 09/01/19 3:26 PM EDT A fall risk assessment has been complete d for the patient 10/06/2024 2:29 PM EDT A Body Mass Index follow-up plan has been documented for the patient 10/31/2024 4:09 PM EDT documented as of this encounter Care Teams Middleware Administrator Relationship Specialty Start Date End Date Laurie Gutierrez MD [address] [place] [address] PCP - General 12/09/23 Joshua Martínez MD [address] [place] [phone] Consulting Physician Radiation Oncology 09/19/24 Jasmina Smith LPN VALUE-BASED [place] [address] TCM Nurse 10/19/24 11/01/24 documented as of this encounter
--- OUTSIDE RECORDS SUMMARY | 2024-11-01 10:16 | XMS_ITS | Encounter Summary ---
Author Organization Healthcare Address [address] [place] [address] Care Team Providers Care Certified Respiratory Therapist Name Role Phone Laurie Gutierrez MD Primary Care Provider Joshua Martínez MD Unavailable Jasmina Smith LPN Unavailable Unavailable Encounter Details Date Type Department Care Team (Latest Contact Info) Description 11/01/2024 10:16 AM EDT - 11/01/2024 10:57 AM EDT Hospital Encounter [facility] CC Radiation [id number] [place] [address] Discharge Disposition: Still a Patient 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 [...] [facility] time in the past [facility] m [facility], were you homeless or living in a usp (including now)? No 10/14/2024 Humiliation, Afraid, Rape, [...] living in a usp (including now)? No 10/26/2024 CAGE ASSESSMENT Answer [...] drink first t laurie in the morning (EYE-AUTOMOBILE SPRING REPAIRER) to steady your nerves or to get rid of a hangover? 0 10/27/2024 CAGE Questionnaire Score 0 025 Utilities Answer Date Recorded In the past 12 months has th e [employer], gas, oil, or water company threatened to [...] tablet by mouth 4 times a day. ondansetron (Zofran) 8 MG tabletIndication s:Extensive stage primary small cell carcinoma of lung Take 1 tablet by mouth 2 times a day. Take on Day 4 of cycle and then take PRN 30 tablet 5 10/04/2024 prochlorperazine (Compazine) 10 MG tabletIndication s:Extensive stage [...] CC Head, Neck & Respiratory [address] [facility], [address]nd [place] [address] 11/29/2024 11:00 AM EDT Office Visit Pav CC Head, Neck & Respiratory [address] [facility], 2nd [place] [address] Satnam Colvin MD [address] [facility] Nuria Degroot [facility] [address] [place] [address] 11/29/2024 12:30 PM EDT Appointment [facility] 1 [address] [place] [address] 11/30/2024 1:30 PM EDT Appointment [facility] 1 [address] [place] [address] 12/01/2024 2:00 PM EDT Appointment [facility] 1 [address] [place] [address] 12/06/2024 11:40 AM EDT Appointment P[facility] CC Radiation [address] [facility] [place]. [id number] [place] [phone] Haven Blum, REGIONAL OTR COMPANY DRIVER [address] [facility] [address] [place] [address] 01/19/2025 9:30 AM EDT Appointment PAV S Radiology [address], 1st [place] [address] 01/19/2025 10:45 AM EDT Office Visit [place] [facility] [address], 1st [place] [address] Abhilash Bangura MD [address] [place] [address] 03/08/2025 1:00 PM EDT Office Visit [facility] [address] [facility]. 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, RECONCILEMENT CLERK Panic 10/26/2024 10/31/2024 Assessment Noted Time PHQ-9 Depression Total Score: 0 09/01/19 25 3:26 PM EDT A fall risk assessment has been complete d for the patient 10/06/2024 2:29 PM EDT A Body Mass Index follow-up plan has been documented for the patient 10/31/2024 4:09 PM EDT documented as of this encounter Care Teams Certified Respiratory Therapist Relationship Specialty Start Date End Date Laurie Gutierrez MD [address] [place] [address] PCP - General 12/09/23 Joshua Martínez MD 800 [facility] [address] [place] [phone] Consulting Physician Radiation Oncology 09/19/24 Jasmina Smith LPN VALUE-BASED [place] [address] TCM Nurse 10/19/24 11/01/24 documented as of this encounter
--- OUTSIDE RECORDS SUMMARY | 2024-11-01 10:58 | XMS_ITS | Encounter Summary ---
Author Organization [facility] Address [address] [place] [address] Care Team Providers Care Vascular Surgeon Name Role Phone Laurie Gutierrez MD Primary Care Provider [phone] Joshua Martínez MD Unavailable Jasmina Smith VICE PRESIDENT AND PORTFOLIO MANAGER Unavailable Unavailable Reason for Visit * Reason Comments OTV Encounter Details Date Type Department Care Team (Latest Contact Info) Description 11/01/2024 10:58 AM EDT - 11/01/2024 11:59 PM EDT Hospital Encounter PAV CC Radiation [address] [facility]. [id number] [place] [address] Garrison Marie MD [address] [place] [address] 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CMS/HCC) (Primary Dx) Discharge [...] time in the past [address] [facility], were you homeless or living in a nursing home (including now)? No 10/14/2024 Humiliation, Afraid, [...] time in the past [address] [facility], were you homeless or living in a nursing home (including now)? No 10/26/2024 CAGE ASSESSMENT [...] drink first t laurie in the morning (EYE-TREE TOPPER) to steady your nerves or to get [...] MG Take 1 tablet by mouth daily. estradiol [...] and call provider. 15 mL 3 10/31/2024 omeprazole (PriLOSEC) [address] capsule Take 1 capsule by mouth daily. pantoprazole (Protonix) 40 MG EC tablet Take [...] 3 10/04/2024 documented as of this encounter Miscellaneous Notes [...] MD GIGI Landry PAV CC RADIATION 800 [facility] [address] Cosigned by Garrison Marie MD at 11/01/2024 12:55 PM EDT Associated attestation - Garrison Marie MD - 11/01/2024 12:55 PM EDT I saw and evaluated the patient with the resident/fellow. I discussed the case with the resident/fellow and agree with the findings and plan as documented. documented in this encounter Plan of Treatment Upcoming Encounters Date Type Department Care Team ([facility] st Contact Info) Description 11/29/2024 10:30 AM EDT Clinical Support Pav CC Head, Neck & Respiratory [address] [facility], 2nd [place] [address] 11/29/2024 11:00 AM EDT Office Visit Pav CC Head, Neck & Respiratory [address] [facility], 2nd [place] [address] Satnam Colvin MD [address] [facility] [address] [place] [address] 11/29/2024 12:30 PM EDT Appointment [facility] 1 [address] [place] [address] 11/30/2024 1:30 PM EDT Appointment [facility] 1 [address] [place] [address] 12/01/2024 2:00 PM EDT Appointment [facility] 1 [address] [place] [address] 12/06/2024 11:40 AM EDT Appointment PAV CC Radiation [address] [facility]. [id number] [place] [address] Haven Blum, ECONOMICS CONSULTANT [address] [place] [address] 01/19/2025 9:30 AM EDT Appointment PAV S Radiology [address], 1st [place] [address] 01/19/2025 10:45 AM EDT Office Visit [place] [facility] [address], 1st [place] [address] Abhilash Bangura MD [address] [place] [address] 03/08/2025 1:00 PM EDT Office Visit [facility] Olympia Gigi 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, PROTEIN SPECIALIST Panic 10/26/2024 10/31/2024 Assessment Noted Time PHQ-9 Depression Total Score: 0 09/01/19 25 3:26 PM EDT A fall risk assessment has been complete d for the patient 10/06/2024 2:29 PM EDT A Body Mass Index follow-up plan has been documented for the patient 10/31/2024 4:09 PM EDT documented as of this encounter Care Teams Vascular Surgeon Relationship Specialty Start Date End Date Laurie Gutierrez MD [address] [place] [address] PCP - General 12/09/23 Joshua Martínez MD 800 [facility] [address] [place] [address] Consulting Physician Radiation Oncology 09/19/24 Jasmina Smith LPN [employer]UE[employer] [address] TCM Nurse 10/19/24 11/01/24 documented as of this encounter
--- OUTSIDE RECORDS SUMMARY | 2024-11-02 10:54 | XMS_ITS | Encounter Summary ---
Author Organization Healthcare Address [address] [place] [address] Care Team Providers Care Client Experience Consultant Name Role Phone Laurie Gutierrez MD Primary Care Provider [phone] Joshua Martínez MD Unavailable Encounter Details Date Type Department Care Team (Latest Contact Info) Description 11/02/2024 10:54 AM EDT - 11/02/2024 11:59 PM EDT Hospital Encounter PAV CC Radiation [id number] [place] [address] Discharge Disposition: Still a Patient 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 [...] time in the past 12 m [facility], were you homeless or living in [...] time in the past 12 m [facility], were you homeless or living in [...] drink first t laurie in the morning (EYE-LEAD APPLIER) to steady your nerves or to get rid of a hangover? 0 10/27/2024 CAGE Questionnaire Score 0 025 Utilities Answer Date Recorded In the past 12 months has th e [email or web address], gas, oil, or water company threatened to [...] 2 (two) times a day. Calcium Carb-Cholecalcif nane 600-10 MG-MCG tablet Take 1 tablet by [...] Pav CC Head, Neck & Respiratory 800 [facility], 2nd [place] [address] 11/29/2024 11:00 AM EDT Office Visit Pav Head, Neck & Respiratory [address] [facility], 2nd [place] [address] Satnam Colvin MD 800 [facility] Nuria Degroot [facility] [address] [place] [address] 11/29/2024 12:30 PM EDT Appointment [facility] 1 [address] [place] [address] 11/30/2024 1:30 PM EDT Appointment [facility] 1 [address] [place] [address] 12/01/2024 2:00 PM EDT Appointment [facility] 1 [address] [place] [address] 12/06/2024 11:40 AM EDT Appointment P[facility] CC Radiation [id number] [place] [address] Haven Blum, JAVA SYBASE DEVELOPER [address] [facility] [address] [place] [address] 01/19/2025 9:30 AM EDT Appointment PAV S Radiology [address], 1st [place] [address] 01/19/2025 10:45 AM EDT Office Visit [place] [facility] [address], 1st [place] [address] Abhilash Bangura MD [address] [place] [address] 03/08/2025 1:00 PM EDT Office Visit [facility] [place] Wenceslao 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, ADVERTISING CAMPAIGN MANAGER Panic 10/26/2024 10/31/2024 Assessment Noted Time PHQ-9 Depression Total Score: 0 09/01/19 25 3:26 PM EDT A fall risk assessment has been complete d for the patient 10/06/2024 2:29 PM EDT A Body Mass Index follow-up plan has been documented for the patient 10/31/2024 4:09 PM EDT documented as of this encounter Care Teams Client Experience Consultant Relationship Specialty Start Date End Date Laurie Gutierrez MD [address] [place] [address] PCP - General 12/09/23 Joshua Martínez MD [address] [place] [phone] Consulting Physician Radiation Oncology 09/19/24 documented as of this encounter
--- OUTSIDE RECORDS SUMMARY | 2024-11-04 10:49 | XMS_ITS | Encounter Summary ---
Author Organization Healthcare Address [address] [place] [address] Care Team Providers Care Transformation Coach Name Role Phone Laurie Gutierrez MD Primary Care Provider [phone] Joshua Martínez MD Unavailable Encounter Details Date Type Department Care Team (Latest Contact Info) Description 11/04/2024 10:49 AM EDT - 11/04/2024 11:59 PM EDT Hospital Encounter P[facility] CC Radiation [address] [id number] [place] [address] Discharge Disposition: Still a Patient 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 [...] any time in the past 12 m [facility], were you homeless or [...] any time in the past 12 m [facility], were you homeless or [...] drink first t laurie in the morning (EYE-RESIST COATER DEVELOPER) to steady your nerves or to get rid of a hangover? 0 10/27/2024 CAGE Questionnaire Score 0 025 Utilities Answer Date Recorded In the past 12 months has th e [employer], gas, oil, or water company threatened to [...] Respiratory 800 [facility], 2nd [place] [address] 11/29/2024 11:00 AM EDT Office Visit Pav Head, Neck & Respiratory 800 [facility], 2nd [place] [address] Satnam Colvin MD 800 [facility] Nuria Degroot [facility] [address] [place] [address] 11/29/2024 12:30 PM EDT Appointment [facility] 1 [address] [place] [address] 11/30/2024 1:30 PM EDT Appointment [facility] 1 [address] [place] [address] 12/01/2024 2:00 PM EDT Appointment [facility] 1 [address] [place] [address] 12/06/2024 11:40 AM EDT Appointment P[facility] CC Radiation [id number] [place] [address] Haven Blum, TURRET LATHE OPERATOR [address] [facility] [address] [place] [address] 01/19/2025 9:30 AM EDT Appointment [facility] S Radiology [address], 1st [place] [address] 01/19/2025 10:45 AM EDT Office Visit [place] [facility] [address], 1st [place] [address] Abhilash Bangura MD [address] [place] [address] 03/08/2025 1:00 PM EDT Office Visit [facility] [place] [facility] 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, SHEET METAL WORKER SUPERVISOR Panic 10/26/2024 10/31/2024 Assessment Noted Time PHQ-9 Depression Total Score: 0 09/01/19 25 3:26 PM EDT A fall risk assessment has been complete d for the patient 10/06/2024 2:29 PM EDT A Body Mass Index follow-up plan has been documented for the patient 10/31/2024 4:09 PM EDT documented as of this encounter Care Teams Transformation Coach Relationship Specialty Start Date End Date Laurie Gutierrez MD [address] [place] [address] PCP - General 12/09/23 Joshua Martínez MD [address] [place] [phone] Consulting Physician Radiation Oncology 09/19/24 documented as of this encounter
--- OUTSIDE RECORDS SUMMARY | 2024-11-07 08:45 | XMS_ITS | Encounter Summary ---
Author Organization Healthcare Address [address] [place] [address] Care Team Providers Care Marine Cargo Surveyor Name Role Phone Laurie Gutierrez MD Primary Care Provider Joshua Martínez MD Unavailable Encounter Details Date Type Department Care Team (Latest Contact Info) Description 11/07/2024 8:45 AM EDT - 11/07/2024 12:13 PM EDT Hospital Encounter [facility] Radiation [address] [id number] [place] [address] Discharge Disposition: Still a Patient 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 [...] time in the past 12 m [facility], were you homeless or living in [...] time in the past 12 m [facility], were you homeless or living in [...] drink first t laurie in the morning (EYE-UNIVERSAL GRINDER TOOL) to steady your nerves or to get [...] Pav [facility] Head, Neck & Respiratory 800 [facility], 2nd [place] [address] 11/29/2024 11:00 AM EDT Office Visit [facility] Head[facility] Neck [facility] Respiratory 800 [facility], 2nd [place] [address] Satnam Colvin MD 800 [facility] Nuria Degroot [address] [place] [address] 11/29/2024 12:30 PM EDT Appointment [facility] 1 [address] [place] [address] 11/30/2024 1:30 PM EDT Appointment [facility] 1 [address] [place] [address] 12/01/2024 2:00 PM EDT Appointment [facility] 1 [address] [place] [address] 12/06/2024 11:40 AM EDT Appointment [facility] Radiation [address] [facility]. [id number] [place] [address] Haven Blum, GRAIN DRIER OPERATOR [address] [facility] [address] [place] [address] 01/19/2025 9:30 AM EDT Appointment [facility] S Radiology [address], 1st [place] [address] 01/19/2025 10:45 AM EDT [facility] Visit [place] [facility] [address], 1st [place] [address] Abhilash Bangura MD [address] [place] [address] 03/08/2025 1:00 PM EDT Office Visit [facility] [place] [facility] 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, TURNER SPLITTER MACHINE OPERATOR Panic 10/26/2024 10/31/2024 Assessment Noted Time PHQ-9 Depression Total Score: 0 09/01/19 25 3:26 PM EDT A fall risk assessment has been complete d for the patient 10/06/2024 2:29 PM EDT A Body Mass Index follow-up plan has been documented for the patient 10/31/2024 4:09 PM EDT documented as of this encounter Care Teams Marine Cargo Surveyor Relationship Specialty Start Date End Date Laurie Gutierrez MD [address] [place] [address] PCP - General 12/09/23 Joshua Martínez MD [address] [place] [phone] Consulting Physician Radiation Oncology 09/19/24 documented as of this encounter
--- OUTSIDE RECORDS SUMMARY | 2024-11-07 12:14 | XMS_ITS | Encounter Summary ---
Author Organization Healthcare Address [address] [place] [address] Care Team Providers Care Copper Flotation Operator Name Role Phone Laurie Gutierrez MD Primary Care Provider [phone] Joshua Martínez MD Unavailable Encounter Details Date Type Department Care Team (Latest Contact Info) Description 11/07/2024 12:14 PM EDT - 11/07/2024 11:59 PM EDT Hospital Encounter [facility] [id number] [place] [address] Discharge Disposition: Still a Patient 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 [...] any time in the past 12 m [facility], were you homeless or [...] any time in the past 12 m [facility], were you homeless or [...] drink first t laurie in the morning (EYE-CIRCULAR SAWYER HELPER) to steady your nerves or to [...] [facility], 2nd [place] [address] 11/29/2024 11:00 AM EDT Office Visit [facility] Res[facility] [address] [facility], 2nd [place] [address] Satnam Colvin MD 800 [facility] [address] [place] [address] 11/29/2024 12:30 PM EDT Appointment [facility] 1 [address] [place] [address] 11/30/2024 1:30 PM EDT Appointment [facility] 1 [address] [place] [address] 12/01/2024 2:00 PM EDT Appointment [facility] 1 [address] [place] [address] 12/06/2024 11:40 AM EDT Appointment [facility] Radiation [address] [facility]. [id number] [place] [address] Haven Blum, INDUSTRIAL NURSE [address] [facility] [address] [place] [address] 01/19/2025 9:30 AM EDT Appointment [facility] S Radiology [address], 1st [place] [address] 01/19/2025 10:45 AM EDT Office Visit [place] [facility] [address], 1st [place] [address] Abhilash Bangura MD [address] [place] [address] 03/08/2025 1:00 PM EDT Office Visit [facility] [place] [facility] 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, SOURCER Panic 10/26/2024 10/31/2024 Assessment Noted Time PHQ-9 Depression Total Score: 0 09/01/19 25 3:26 PM EDT A fall risk assessment has been complete d for the patient 10/06/2024 2:29 PM EDT A Body Mass Index follow-up plan has been documented for the patient 10/31/2024 4:09 PM EDT documented as of this encounter Care Teams Copper Flotation Operator Relationship Specialty Start Date End Date Laurie Gutierrez MD [address] [place] [address] PCP - General 12/09/23 Joshua Martínez MD [address] [place] [address] Consulting Physician Radiation Oncology 09/19/24 documented as of this encounter
--- OUTSIDE RECORDS SUMMARY | 2024-11-08 11:00 | XMS_ITS | Encounter Summary ---
Author Organization Healthcare Address [address] [place] [address] Care Team Providers Care Freight Shipping Agent Name Role Phone Laurie Gutierrez MD Primary Care Provider [phone] Joshua Martínez MD Unavailable Reason for Visit * Reason Comments Labs Peripheral stick, ri ght arm Encounter Details Date Type Department Care Team (Latest Contact Info) Description 11/08/2024 11:00 AM EDT Clinical Support [facility] Head[facility] Neck [facility] Respiratory [address], 2nd [place] [address] Extensive stage primary small cell carcinoma of lung 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 Tobacco Use Types Packs/Day Years Used Date Smoking Tobacco: Former Cigarettes 1.5 48.4 1 976 - 10/17/2023 Passive Smoke Exposure: Past Smokeless Tobacco: Never Alcohol Use Standard Drinks/Week Comments Never 0 (1 standard drink = 0.6 oz [...] drink first t laurie in the morning (EYE-EDITOR MAP) to steady your nerves or to get [...] as of this encounter Functional Status * AUDIT-C Score Answer Date of Assessment Author 0 11/08/2024 11:13 AM Kasandra Loomis * Question Answer Date of Assessment Author Q1: How often do you have a drink containing alcohol? Never 11/08/2024 11:13 AM Kasandra Loomis Q2: How many drinks containing alcohol do you have on a typical day when you are drinking? Patient does not drink 11/08/2024 11:13 AM Kasandra Loomis Q3: How often do you have six or more drinks on one occasion? Never 11/08/2024 11:13 AM Kasandra Loomis documented as of this encounter Miscellaneous Notes * Clinician Note - Kasandra Riley - 11/08/2024 11:00 AM EDT Peripheral stick, right arm documented in this encounter Plan of Treatment Upcoming Encounters Date Type Department Care Team (Late st Contact Info) Description 11/29/2024 10:30 AM EDT Clinical Support [facility] Head[facility] Neck [facility] Respiratory [address] [facility], 2nd [place] [address] 11/29/2024 11:00 AM EDT Office Visit [facility] Head[facility] Neck & Respiratory [address] [facility], 2nd [place] [address] Satnam Colvin MD [address] [facility] [address] [facility] [address] [place] [address] 11/29/2024 12:30 PM EDT Appointment [facility] 1 [address] [place] [address] 11/30/2024 1:30 PM EDT Appointment [facility] 1 [address] [place] [address] 12/01/2024 2:00 PM EDT Appointment [facility] 1 [address] [place] [address] 12/06/2024 11:40 AM EDT Appointment [facility] Radiation [address] [facility]. [id number] [place] [address] Haven Blum, ROAD TESTER [address] [facility] [address] [place] [address] 01/19/2025 9:30 AM EDT Appointment P[facility] S Radiology [address], 1st [place] [address] 01/19/2025 10:45 AM EDT Office Visit [place] [facility] [address], 1st [place] [address] Abhilash Bangura MD [address] [place] [address] 03/08/2025 1:00 PM EDT Office Visit [facility] [place] [address] [place] [address] Teresita Oconnell MD [address] [place] [address] documented as of this encounter Procedures Procedure Name Priority Date/Time Associated Diagnosis Comments CBC WITH AUTO DIFFERENTIAL Routine 11/08/2024 11:36 AM EDT Extensive stage primary small cell carcinoma of lung MAGNESIUM, PLASMA STAT 11/08/2024 11: 36 AM EDT Extensive stage primary small cell carcinoma of lung COMPREHENSIVE METABOLIC PANEL, PLASMA Routine 11/08/2024 11:36 AM EDT Extensive stage primary small cell carcinoma of lung documented in this encounter Results * (ABNORMAL) Magnesium (11/08/2024 11:36 AM EDT) Magnesium, Plasma 1.6(L) 1.9 - 2.4 mg/dL 11/08/2024 12:14 PM EDT [facility] Blood Venous blood specimen / Unknown Venipuncture / Unknown 11/08/2024 11:36 AM EDT 11/08/2024 11:45 AM EDT us Satnam Dunne MD LAB BLOOD ORDERABLES Fi nal Result [facility] [address] [place] [address] * (ABNORMAL) Comprehensive metabolic panel (11/08/2024 11:36 [...] nal Result [facility] [address] [place] [address] * (ABNORMAL) CBC and differential (11/08/2024 11:36 AM EDT) Pathologist [facility] WBC Count 10.97(H) 3.70 - 10.30 10*3/uL [...] 11:36 AM EDT 11/08/2024 11:45 AM EDT [facility] 11/08/2024 11:52 AM EDT Therapeutic decision making should be based on absolute values, rather than percentages. 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, STRATEGY INTERN Panic 10/26/2024 10/31/2024 Assessment Noted Time PHQ-9 Depression Total Score: 0 09/01/19 3:26 PM EDT A fall risk assessment has been complete d for the patient 11/08/2024 2:02 PM EDT A Body Mass Index follow-up plan has been documented for the patient 11/08/2024 5:14 PM EDT documented as of this encounter Care Teams Freight Shipping Agent Relationship Specialty Start Date End Date Laurie Gutierrez MD [address] [place] [address] PCP - General 12/09/23 Joshua Martínez MD [address] [address] Consulting Physician Radiation Oncology 09/19/24 documented as of this encounter
--- OUTSIDE RECORDS SUMMARY | 2024-11-08 11:20 | XMS_ITS | Encounter Summary ---
Author Organization Healthcare Address [address] [place] [address] Care Team Providers Care Patent Agent Name Role Phone Laurie Gutierrez MD Primary Care Provider [phone] Joshua Martínez MD Unavailable Reason for Visit * Reason Comments Follow-up Encounter Details Date Type Department Care Team ([facility] Contact Info) Description 11/08/2024 11:20 AM EDT Office Visit Pav CC Head, Neck & Respiratory 800 [facility], 2nd [place] [address] Satnam Colvin MD 800 [facility] [address] [place] [address] Extensive stage primary small cell carcinoma of [...] any time in the past 12 m the [facility], were you homeless or living in [...] any time in the past 12 m the rehabilitation institute, were you homeless or living in [...] first t laurie in the morning (EYE-ANIMAL ASSISTANT) to steady your nerves or to [...] time. Pharmacist Attestation: Rupa De Santiago PharmD, [facility] Clinical Oncology Pharmacist * Progress Notes - [...] 10/04-10/06/24 Oncology History: - initially diagnosed with [id number], stage IIIA limited stage of the right [...] images, labs, coordinating care and, 20 minutes ckjm-kk-bfhz encounter. MD [facility] [address] [facility] [address] [facility]. [1] Past Medical History: Diagnosis Date [...] SURGERY TUBAL LIGATION N/A Tubal Ligation from [employer] TYMPANOSTOMY TUBE PLACEMENT N/A Ear Surgery Eustachian Tube from [employer] [3] Family History Problem Relation Name Age [...] or chew., Disp: 20 capsule, Rfl: 0 Etsekte-Acaycensmiu-Ucaewdhhcy (Breztri Aerosphere) 160-9-4.8 MCG/ACT aerosol, Inhale 2 [...] Disp: 22 g, Rfl: 0 nystatin (Mycostatin) 336300 UNIT/GM powder, Apply on bottom 2 times [...] Pav [facility] Head, Neck & Respiratory [address] [address] 11/29/2024 11:00 AM EDT Office Visit [facility] Head, Neck & Respiratory [address] [address] Satnam Colvin MD 800 [facility] [address] [place] [address] 11/29/2024 12:30 PM EDT Appointment [facility] Infusion [facility] 1 [address] [place] [address] 11/30/2024 1:30 PM EDT Appointment [facility] Infusion Clinic 1 [address] [place] [address] 12/01/2024 2:00 PM EDT Appointment [facility] Infusion [facility] [address] [place] [address] 12/06/2024 11:40 AM EDT Appointment [facility] CC Radiation [address] [place] [address] Haven Blum, COMPUTER REPAIR ENGINEER [address] [place] [address] 01/19/2025 9:30 AM EDT Appointment [facility] S Radiology [address], 1st [place] [address] 01/19/2025 10:45 AM EDT Office Visit [place] [facility] [address], 1st [place] [address] Abhilash Bangura MD [address] [place] [address] 03/08/2025 1:00 PM EDT Office Visit [facility] Gigi 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, BARK PEELER Panic 10/26/2024 10/31/2024 Assessment Noted Time PHQ-9 Depression Total Score: 0 09/01/19 25 3:26 PM EDT A fall risk assessment has been complete d for the patient 11/08/2024 2:02 PM EDT A Body Mass Index follow-up plan has been documented for the patient 11/08/2024 5:14 PM EDT documented as of this encounter Care Teams Patent Agent Relationship Specialty Start Date End Date Laurie Gutierrez MD [address] [place] [address] PCP - General 12/09/23 Joshua Martínez MD [address] [place] [phone] Consulting Physician Radiation Oncology 09/19/24 documented as of this encounter
--- OUTSIDE RECORDS SUMMARY | 2024-11-08 14:00 | XMS_ITS | Encounter Summary ---
Author Organization Healthcare Address [address] [place] [address] Care Team Providers Care Machine Stapler Name Role Phone Laurie Gutierrez MD Primary Care Provider [phone] Joshua Martínez MD Unavailable Reason for Visit * Episode Based Medications (Routine) - Authorized Specialty Diagnoses / Procedures Referred By Contac t Referred To Contact Diagnoses Extensive stage primary small cell carcinoma of lung Procedures CARBOplatin / Etoposide Daily x 3 / Atezolizumab Every 21 Days Satnam Colvin MD [address] [facility] Nuria Degroot [address] [address] Phone: tel: fax: Satnam Colvin MD [address] [facility] Nuria Degroot [address] [address] Phone: tel: fax: Referral ID Status Reason Start Date Expiration Date V isits Requested Visits Authorized [id number] Authorized 10/04/2024 04/05/2026 1 19 Encounter Details Date Type Department Care Team (Latest Contact Info) Description 11/08/2024 2:00 PM EDT - 11/08/2024 11:59 PM EDT Hospital Encounter [facility] [address] [place] [address] Extensive stage primary small cell carcinoma of [...] drink first t laurie in the morning (EYE-PIGMENT MIXER) to steady your nerves or to get rid of a hangover? 0 10/27/2024 CAGE Questionnaire Score 0 025 Utilities Answer Date Recorded In the past 12 months has th e [employer], gas, oil, or water company threatened to [...] capsule Take 1 capsule by mouth daily. ondansetron (Zofran) 8 MG tabletIndication s:Extensive stage [...] with insulin pen. 100 each 11 10/31/2024 prochlorperazine (Compazine) 10 MG tabletIndication s:Extensive stage [...] Take 1 tablet by mouth every evening. lidocaine (Xylocaine) 5 % ointment Apply 2 times a day. 30 g 11/08/2024 mupirocin (Bactroban) 2 % ointment Apply on head 2 times a day 22 g 11/08/2024 nystatin (Mycostatin) 371594 UNIT/GM powder Apply on bottom 2 times a day 30 g 11/08/2024 Probiotic, Lactobacillus, capsule Take 1 capsule by mouth daily. 30 capsule 1 11/08/2024 documented as of this encounter Plan of Treatment Upcoming Encounters Date Type Department Care Team ([facility] st Contact Info) Description 11/29/2024 10:30 AM EDT Clinical Support [facility] [address] [facility], [address]nd [place] [phone] 11/29/2024 11:00 AM EDT Office Visit [facility] [address] [facility], [address] [place] [address] Satnam Colvin MD [address] [facility] Nuria Zane [address] [place] [phone] 11/29/2024 12:30 PM EDT Appointment [facility] 1 [address] [place] [address] 11/30/2024 1:30 PM EDT Appointment [facility] 1 [address] [place] [address] 12/01/2024 2:00 PM EDT Appointment [facility] 1 [address] [place] [address] 12/06/2024 11:40 AM EDT Appointment [facility] Radiation [address] [facility]. [id number] [place] [address] Haven Blum, MACHINE ZIPPER TRIMMER [address] [facility] [address] [place] [address] 01/19/2025 9:30 AM EDT Appointment [facility] Radiology [address], [address] [place] [phone] 01/19/2025 10:45 AM EDT Office Visit [facility] [address], [address] [place] [phone] Abhilash Bangura MD [address] [place] [phone] 03/08/2025 1:00 PM EDT Office Visit [facility] [place] Wenceslao [address] [place] [address] Teresita Oconnell MD [address] [place] [address] documented as of this encounter [...] stage primary small cell carcinoma of lung [facility] 11/08/2024 3:13 PM EDT 130 mg Atezolizumab-Hyaluronida se-tqjs (Tecentriq Hybreza) [id number] MG-UT/15ML injection solution 1,875 mg 1,875 mg, Subcutaneous, Once, 1 dose, On Thu11/08/24 at 1500, RoutineIndications:Exten sive stage primary small cell carcinoma of lung [facility] 11/08/2024 3:17 PM EDT 1,875 mg Left [...] stage primary small cell carcinoma of lung [facility] 11/08/2024 3:34 PM EDT 620 mg 714 [...] cell carcinoma of lung New Bag 11/08/2024 4:08 PM EDT 220 mg 576 [...] 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, CONTENT STRATEGY LEAD Panic 10/26/2024 10/31/2024 Assessment Noted Time PHQ-9 Depression Total Score: 0 09/01/19 3:26 PM EDT A fall risk assessment has been complete d for the patient 11/08/2024 2:02 PM EDT A Body Mass Index follow-up plan has been documented for the patient 11/08/2024 5:14 PM EDT documented as of this encounter Care Teams Machine Stapler Relationship Specialty Start Date End Date Laurie Gutierrez MD [address] [place] [id number] PCP - General 12/09/23 Joshua Martínez MD [address] [place] [phone] Consulting Physician Radiation Oncology 09/19/24 documented as of this encounter
--- OUTSIDE RECORDS SUMMARY | 2024-11-09 14:49 | XMS_ITS | Encounter Summary ---
Author Organization Healthcare Address [address] [place] [address] Care Team Providers Care Filler Spreader Name Role Phone Laurie Gutierrez MD Primary Care Provider [phone] Joshua Martínez MD Unavailable Reason for Visit * Episode Based Medications (Routine) - Authorized Specialty Diagnoses / Procedures Referred By Contac t Referred To Contact Diagnoses Extensive stage primary small cell carcinoma of lung Procedures CARBOplatin / Etoposide Daily x 3 / Atezolizumab Every 21 Days Satnam Colvin MD 800 [facility] [address] [address] Phone: tel: fax: Satnam Colvin MD 800 [facility] [address] [address] Phone: tel: fax: Referral ID Status Reason Start Date Expiration Date V isits Requested Visits Authorized [id number] Authorized 10/04/2024 04/05/2026 1 19 Encounter Details Date Type Department Care Team (Latest Contact Info) Description 11/09/2024 2:49 PM EDT - 11/09/2024 11:59 PM EDT Hospital Encounter [facility] 2 [address] [place] [address] Extensive stage primary small cell carcinoma of [...] drink first t laurie in the morning (EYE-OPENING MACHINE CLEANER) to steady your nerves or to get rid of a hangover? 0 10/27/2024 CAGE Questionnaire Score 0 025 Utilities Answer Date Recorded In the past 12 months has th e [employer], gas, oil, or water company threatened to [...] a day 22 g 11/08/2024 nystatin (Mycostatin) 086954 UNIT/GM powder Apply on bottom 2 times a day 30 g 11/08/2024 Probiotic, Lactobacillus, capsule Take 1 capsule by mouth daily. 30 capsule 1 11/08/2024 documented as of this encounter Plan of Treatment Upcoming Encounters Date Type Department Care Team (Late st Contact Info) Description 11/29/2024 10:30 AM EDT Clinical Support [facility] Res[facility] [address] [facility], 2nd [place] [address] 11/29/2024 11:00 AM EDT Office Visit [facility] Respiratory [address] [facility], 2nd [place] [address] Satnam Colvin MD [address] [facility] [address] [place] [address] 11/29/2024 12:30 PM EDT Appointment [facility] 1 [address] [place] [address] 11/30/2024 1:30 PM EDT Appointment [facility] 1 [address] [place] [address] 12/01/2024 2:00 PM EDT Appointment [facility] 1 [address] [place] [address] 12/06/2024 11:40 AM EDT Appointment [facility] Radiation [address] [facility]. [id number] [place] [address] Haven Blum, HEALTH AND SAFETY INSTRUCTOR [address] [facility] [address] [place] [address] 01/19/2025 9:30 AM EDT Appointment [facility] [address], 1st [place] [address] 01/19/2025 10:45 AM EDT Office Visit [place] [facility] [address], [address]st [place] [address] Abhilash Bangura MD [address] [place] [address] 03/08/2025 1:00 PM EDT Office Visit [facility] [place] [facility] [address] 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, FLAT OPTICAL ELEMENT MAKER Panic 10/26/2024 10/31/2024 Assessment Noted Time PHQ-9 Depression Total Score: 0 09/01/19 3:26 PM EDT A fall risk assessment has been complete d for the patient 11/09/2024 2:52 PM EDT A Body Mass Index follow-up plan has been documented for the patient 11/08/2024 5:14 PM EDT documented as of this encounter Care Teams Filler Spreader Relationship Specialty Start Date End Date Laurie Gutierrez MD [address] [place] [address] PCP - General 12/09/23 Joshua Martínez MD [address] [place], [place] [address] [place] [address] Consulting Physician Radiation Oncology 09/19/24 documented as of this encounter
--- OUTSIDE RECORDS SUMMARY | 2024-11-10 14:39 | XMS_ITS | Encounter Summary ---
Author Organization Healthcare Address [address] [place] [address] Care Team Providers Care Barbering Teacher Name Role Phone Laurie Gutierrez MD Primary Care Provider [phone] Joshua Martínez MD Unavailable Reason for Visit * Episode Based Medications (Routine) - Authorized Specialty Diagnoses / Procedures Referred By Contac t Referred To Contact Diagnoses Extensive stage primary small cell carcinoma of lung Procedures CARBOplatin / Etoposide Daily x 3 / Atezolizumab Every 21 Days Satnam Colvin MD 800 [facility] Nuria Degroot [address] [address] Phone: tel: fax: Satnam Colvin MD 800 [facility] Nuria Degroot [address] [address] Phone: tel: fax: Referral ID Status Reason Start Date Expiration Date V isits Requested Visits Authorized [id number] Authorized 10/04/2024 04/05/2026 1 19 Encounter Details Date Type Department Care Team (Latest Contact Info) Description 11/10/2024 2:39 PM EDT - 11/10/2024 11:59 PM EDT Hospital Encounter [facility] 1 [address] [place] [address] Extensive stage primary small cell carcinoma of [...] time in the past [address] [facility], were you homeless or living in [...] time in the past [address] [facility], were you homeless or living in [...] drink first t laurie in the morning (EYE-SURVEILLANCE SYSTEMS ENGINEER) to steady your nerves or to [...] Sign Reading Time Taken Comments Blood Pressure 90/60 11/10/2024 5:31 PM EDT Pulse 76 11/10/2024 5:31 PM EDT Temperature 36.6 C (97.9 F) 11/10/2024 2:43 PM EDT Respiratory Rate 19 11/10/2024 2:43 PM EDT Oxygen Saturation 95% 11/10/2024 2:43 PM EDT Inhaled Oxygen Concentration - - Weight 118 kg (259 lb 7.7 oz) 11/10/2024 2:43 PM EDT Height 170.2 cm (5' 7 ) 11/10/2024 2:43 PM EDT Body Mass Index 40.64 11/10/2024 2:43 PM EDT documented in this encounter Medications [...] a day 22 g 11/08/2024 nystatin (Mycostatin) 781946 UNIT/GM powder Apply on bottom 2 times a day 30 g 11/08/2024 Probiotic, Lactobacillus, capsule Take 1 capsule by mouth daily. 30 capsule 1 11/08/2024 documented as of this encounter Plan of Treatment Upcoming Encounters Date Type Department Care Team (Late st Contact Info) Description 11/29/2024 10:30 AM EDT Clinical Support [facility] 800 [facility], 2nd [place] [address] 11/29/2024 11:00 AM EDT Office Visit [facility] 800 [facility], [address]nd [place] [address] Satnam Colvin MD [address] [place] [address] 11/29/2024 12:30 PM EDT Appointment [facility] Infusion Clinic 1 [address] [place] [address] 11/30/2024 1:30 PM EDT Appointment [facility] Infusion Clinic 1 [address] [place] [address] 12/01/2024 2:00 PM EDT Appointment [facility] 1 [address] [place] [address] 12/06/2024 11:40 AM EDT Appointment [facility] Radiation 800 [facility]. [id number] [place] [address] Haven Blum, MANUFACTURING PROJECT MANAGER 800 [facility] [address] [place] [address] 01/19/2025 9:30 AM EDT Appointment [facility] Radiology [address], 1st [place] [address] 01/19/2025 10:45 AM EDT [facility] [place] [facility] [address], 1st [place] [address] Abhilash Bangura MD [address] [place] [address] 03/08/2025 1:00 PM EDT Office Visit [facility] [place] [facility] 800 [facility]. [address] [place] [address] Teresita Oconnell MD [address] [place] [address] documented as of this encounter [...] filter. Chemotherapy: refer to [id number]., On Corrina 11/10/24 at 1645, For 1 dose, NS 500 mL; Precipitation may occur with concentrations >0.4 mg/mL. Larger diluent volumes may be warranted dependent upon the patient's weight.Indications:Extens elissa stage primary small cell carcinoma of lung New Bag 11/10/2024 4:31 PM EDT 220 mg 576 mL/hr ondansetron ODT (Zofran-ODT) disintegrating tablet 16 mg 16 mg, Oral, Once, 1 dose, On Corrina 11/10/24 at 1615, RoutineIndications:Extens elissa stage primary small cell carcinoma of lung Given 11/10/2024 4:07 PM EDT 16 mg pegfilgrastim (Neulasta) 6 MG/0.6ML on-body injector 6 mg 6 mg, Subcutaneous, Once, 1 dose, On Corrina 11/10/24 at 1615, RoutineIndications:Extens elissa stage primary small cell carcinoma of lung Given 11/10/2024 4:28 PM EDT 6 mg Left Upper Arm (Back) documented in this encounter Additional Health Concerns Infection Onset Date Last Indicated Resolved Time 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, RUNNER ON Panic 10/26/2024 10/31/2024 Assessment Noted Time PHQ-9 Depression Total Score: 0 09/01/19 25 3:26 PM EDT A fall risk assessment has been complete d for the patient 11/10/2024 2:43 PM EDT A Body Mass Index follow-up plan has been documented for the patient 11/08/2024 5:14 PM EDT documented as of this encounter Care Teams Barbering Teacher Relationship Specialty Start Date End Date Laurie Gutierrez MD [address] [place] [address] PCP - General 12/09/23 Joshua Martínez MD [address] [address] Consulting Physician Radiation Oncology 09/19/24 documented as of this encounter
--- OUTSIDE RECORDS SUMMARY | 2024-11-14 08:45 | XMS_ITS | Encounter Summary ---
Author Organization Healthcare Address [address] [place] [address] Care Team Providers Care Tobacco Acreage Measurer Name Role Phone Laurie Gutierrez MD Primary Care Provider [phone] Joshua Martínez MD Unavailable Encounter Details Date Type Department Care Team (Late st Contact Info) Description 11/14/2024 8:45 AM EDT Hospital Encounter [facility] Radiation [id number] [place] [address] Arrived 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 Tobacco Use Types Packs/Day Years [...] 0 08/31/2024 Housing Stability Vital Sign Answer Greogr e Recorded In the last 12 months, was t here a time when you were not able to pay the mortgage or rent on time? No 10/14/2024 Number of Times Moved in the Last Year Not on fi le 10/14/2024 At any time in the past 12 m [facility], were you homeless or living in a [...] any time in the past 12 m [facility], were you homeless or living in a [...] drink first t laurie in the morning (EYE-SUPERVISOR CELLARS) to steady your nerves or to get rid of a hangover? 0 10/27/2024 CAGE Questionnaire Score 0 025 Utilities Answer Date Recorded In the past 12 months has e [employer], gas, oil, or water [email or web address] threatened to shut off services in your home? No 10/26/2024 Comments No Sex and Gender Information Value Date Recorded Sex Assigned at Not on file Legal Sex Female 8:32 PM EDT Gender Identity Not on file Sexual Orientation Not on file documented as of this encounter Plan of Treatment Upcoming Encounters Date Type Department Care Team (Late st Contact Info) Description 11/29/2024 10:30 AM EDT Clinical Support [facility] Head[facility] Neck [facility] Respiratory 800 [facility], 2nd [place] [address] 11/29/2024 11:00 AM EDT Office Visit [facility] Head[facility] Neck [facility] Respiratory [address] [facility], 2nd [place] [address] Satnam Colvin MD 800 [facility] Nuria Degroot [facility] [address] [place] [address] 11/29/2024 12:30 PM EDT Appointment [facility] 1 [address] [place] [address] 11/30/2024 1:30 PM EDT Appointment [facility] 1 [address] [place] [address] 12/01/2024 2:00 PM EDT Appointment [facility] 1 [address] [place] [address] 12/06/2024 11:40 AM EDT Appointment [facility]iation [id number] [place] [address] Haven Blum, CONSUMER LENDING MANAGER [address] [place] [address] 01/19/2025 9:30 AM EDT Appointment [facility] [address], 1st [place] [address] 01/19/2025 10:45 AM EDT Office Visit [place] [facility] [address], 1st [place] [address] Abhilash Bangura MD [address] [place] [address] 03/08/2025 1:00 PM EDT Office Visit [facility] [place] [facility] 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, PAINTER SHIPYARD Panic 10/26/2024 10/31/2024 Assessment Noted Time PHQ-9 Depression Total Score: 0 09/01/19 25 3:26 PM EDT A fall risk assessment has been complete d for the patient 11/10/2024 2:43 PM EDT A Body Mass Index follow-up plan has been documented for the patient 11/08/2024 5:14 PM EDT documented as of this encounter Care Teams Tobacco Acreage Measurer Relationship Specialty Start Date End Date Laurie Gutierrez MD [address] [place] [address] PCP - General 12/09/23 Joshua Martínez MD [address] [place] [address] Consulting Physician Radiation Oncology 09/19/24 documented as of this encounter
[2024-11-15] VITALS (7 sets, daily range): BP systolic 105–128; BP diastolic 42–62; PULSE 69–74; RESP 15–21; TEMP 37.2–37.5; O2SAT 97–99; BMI 40.5
--- NOTE | 2024-11-15 13:40 | ECG_ITS ---
APPROVED REPORT Exam: Resting ECG HR:73 bpm ECG Measurements Heart Rate 73 AXES MD 133 P 76 QRSd 92 QRS 41 QT 363 T 69 QTc 388 Conclusion SINUS RHYTHM NORMAL ECG UNCONFIRMED REPORT Electronically signed by : Parminder Santos, 11/16/2024 21:38:42
--- NOTE | 2024-11-15 13:51 | XR_ITS ---
FINAL REPORT CLINICAL HISTORY: foosh L thumb pain COMPARISON: None FINDINGS: Two views of the left hand were obtained. There is no acute fracture or dislocation. Moderate hypertrophic changes are noted in the DIP and PIP joints. There are moderate hypertrophic changes of the basilar joint. There is no acute soft tissue abnormality. IMPRESSION: No acute abnormality identified. Reviewed, Interpreted and Dictated by Jeff Guadalupe MD Transcribed by Haven Martinez Authenticated and [facility]
--- NOTE | 2024-11-15 13:51 | CT_ITS ---
FINAL REPORT TECHNIQUE: Axial CT images were performed through the head. Coronal and sagittal reformatted images were submitted. This study was performed with techniques to keep radiation doses as low as reasonably achievable (ALARA). Individualized dose reduction techniques using automated exposure control or adjustment of mA and/or kV according to the patient's size were employed. CLINICAL HISTORY: fall / recent brain surg. COMPARISON: None FINDINGS: CT HEAD: The patient has undergone a recent left parietal craniotomy. There is a subdural hematoma noted under the craniotomy site, with a component that extends into the parafalcine region, that appears to be acute. There is mild mass effect on the underlying cortex without evidence of midline shift. No definite intra-axial density is seen. Changes of chronic sinusitis are present. IMPRESSION: Recent left parietal craniotomy, with a subdural hematoma noted just deep to the craniotomy site as described above, appears acute. There is mild mass effect on the underlying cortex without evidence of midline shift. No definite intra-axial parenchymal density is seen. Several attempts were made to contact the emergency room at [facility], 11/15/2024 at 3:30 PM, however these were unsuccessful. Reviewed, Interpreted and Dictated by Jeff Guadalupe MD Transcribed by Smita Torres Authenticated and . [facility]
--- NOTE | 2024-11-15 13:51 | CT_ITS ---
FINAL REPORT TECHNIQUE: Axial images were obtained of the cervical spine by computed tomography. Coronal and sagittal reconstruction process performed. This study was performed with techniques to keep radiation doses as low as reasonably achievable (ALARA). Individualized dose reduction techniques using automated exposure control or adjustment of mA and/or kV according to the patient's size were employed. CLINICAL HISTORY: fall posterior c spine COMPARISON: None FINDINGS: CT CERVICAL SPINE: Cervical vertebrae show normal height. No acute fracture is identified. There are moderate anterior osteophytes present at the C5-6 and C6-7 levels. There is no malalignment. The facets are properly aligned. IMPRESSION: No fracture. Reviewed, Interpreted and Dictated by Jeff Guadalupe MD Transcribed by Smita Torres Authenticated and [facility]
--- NOTE | 2024-11-15 13:51 | XR_ITS ---
FINAL REPORT CLINICAL HISTORY: fall COMPARISON: 09/19/2021 FINDINGS: The heart size is normal. The mediastinum is normal. Scarring is noted in the right upper lobe. There is no focal infiltrate or edema. There are no pleural effusions. There is no pneumothorax. There is no osseous abnormality. IMPRESSION: No acute cardiopulmonary process. No acute bony abnormality. Reviewed, Interpreted and Dictated by Jeff Guadalupe MD Transcribed by Haven Martinez Authenticated and [facility]
--- NOTE | 2024-11-15 13:51 | XR_ITS ---
FINAL REPORT CLINICAL HISTORY: foosh L thumb pain COMPARISON: None FINDINGS: Two views of the left wrist were obtained. There is no acute fracture or dislocation. Moderate hypertrophic changes are noted of the basilar joint. There is soft tissue swelling over the dorsum of the wrist. IMPRESSION: Soft tissue swelling without acute abnormality identified. Reviewed, Interpreted and Dictated by Jeff Guadalupe MD Transcribed by Haven Martinez Authenticated and [facility]
--- NOTE | 2024-11-15 13:51 | XR_ITS ---
FINAL REPORT CLINICAL HISTORY: fall landed on L knee COMPARISON: None FINDINGS: LEFT KNEE 3 views of the left knee were obtained. There is no acute fracture or dislocation. There is moderate narrowing of the medial compartment joint space. Sharpening of the tibial spines is noted. There is a 13 mm loose body superior to the patella. Moderate osteophyte formation is noted along the undersurface of the patella. Soft tissues are unremarkable. IMPRESSION: Hypertrophic changes of osteoarthritis without acute bony abnormality. Reviewed, Interpreted and Dictated by Jeff Guadalupe MD Transcribed by Haven Martinez Authenticated and . [facility]
--- OUTSIDE RECORDS SUMMARY | 2024-11-15 13:57 | XMS_ITS | Clinical Summary ---
Author Organization [employer] ([place], [place], [place], [place]) Address [address] [place] [address] Care Team Providers Care Nursery School Attendant Name Role Phone Laurie Gutierrez MD Primary Care Provider [phone] Cecilio Barfield MD Unavailable [phone] Sriram Lobato MD Unavailable [phone] Allergies Active Allergy Reactions Criticality Noted Date Comments Cephalexin Nausea And Vomiting Medium 01/31/2013 Other reaction(s): Not available Lisinopril Other (See Comments) 04/03/2022 cough Other reaction(s): cough, Not available Meloxicam Other (See Comments) 04/03/2022 cough Other reaction(s): Not available Medications BD Alcohol Swabs PadM SMARTSIG:Topical Once PRN 03/25/20 22 Active atorvastatin (LIPITOR) 40 MG tablet 1 tablet (40 mg total). 03/17/20 22 Active Dexcom G6 Sensor Magdalene SMARTSI Topical Every 10 Days 03/18/20 22 Active Dexcom G6 Transmitter Magdalene SMARTSIG:Via Meter Every 3 Months 03/25/20 22 Active calcium carbonate-vitamin D3 (CALTRATE-D) 600 mg-10 mcg (400 unit) Tab Take 1 tablet by mouth 2 (two) times daily. 03/18/20 22 Active cetirizine (ZyrTEC) 10 MG tablet TAKE 1 TABLET 1 TIME EACH DAY 02/25/20 22 Active fluticasone propionate (FLONASE) 50 mcg/actuation nasal spray SMARTSIG:Both Nares Once 02/25/20 Active estradioL (ESTRACE) 0.01 % (0.1 mg/gram) vaginal cream SMARTSI Gram(s) Vaginal 3 Times Daily 03/24/20 Active gabapentin (NEURONTIN) 600 MG tablet Take 1 tablet (600 mg total) by mouth 4 (four) times daily. 03/19/20 Active Mucus Relief ER 600 mg 12 hr tablet Take 1 tablet (600 mg total) by mouth every 12 (twelve) hours as needed. 02/25/20 Active Combivent Respimat 20-100 mcg/actuation Mist inhaler SMARTSI Unspecified Via Inhaler Every 6 Hours PRN 03/17/20 Active pantoprazole (PROTONIX) 40 MG tablet TAKE 1 TABLET 1 TIME EACH DAY 08/07/19 Active ipratropium-albute roL (DUO-NEB) 0.5 mg-3 mg(2.5 mg base)/3 mL nebulizer solution 3 mLs 4 (four) times daily. 06/30/19 Active Vitamin B-12 1,000 mcg ER tablet TAKE 1 TABLET 1 TIME EACH DAY 08/07/19 Active FLUoxetine (PROzac) 40 MG capsule Take 1 capsule (40 mg total) by mouth once. 08/07/19 Active celecoxib (CeleBREX) 200 MG capsule Take 2 capsules (400 mg total) by mouth once. 08/07/19 Active Fiber-Lax 625 mg tablet SMARTSI Tablet(s) By Mouth Once PRN 08/08/19 Active diazePAM (VALIUM) 5 MG tablet Take 1 tablet (5 mg total) by mouth. 08/24/19 24 Active Accu-Chek Softclix Lancets lancets 3 (three) times daily. 08/07/19 24 Active FreeStyle Lite Strips Strp 3 (three) times daily as needed. 08/07/19 24 Active ondansetron (ZOFRAN) 8 MG tablet Take 1 tablet (8 mg total) by mouth 3 (three) times daily. 08/28/19 Active amiodarone (PACERONE) 200 MG tablet Take 1 tablet (200 mg total) by mouth. Active Xarelto 20 mg tablet SMARTSI Tablet(s) By Mouth Every Evening 10/28/19 24 Active terconazole (TERAZOL 7) 0.4 % vaginal cream Place 1 Applicatorful vaginally nightly. 10/14/19 24 Active cholecalciferol (VITAMIN D3) 25 mcg (1,000 unit) tablet Take 1 tablet (1,000 Units total) by mouth. Active metFORMIN (GLUCOPHAGE-XR) 500 MG 24 hr tablet Take 2 tablets (1,000 mg total) by mouth. Active Jardiance 25 mg tablet TAKE 1 TABLET 1 TIME EACH DAY 11/05/19 24 Active albuterol (ACCUNEB) 1.25 mg/3 mL nebulizer solution Inhale 3 mLs (1.25 mg total) by mouth via inhaler. Active cyanocobalamin (Vitamin B-12) 1,000 mcg ER tablet 1 tablet Orally Once a day for 90 days Active blood-glucose transmitter (Dexcom G6 Transmitter) Magdalene as directed for 90 days Active blood-glucose sensor (Dexcom G5-G4 Sensor) Magdalene as directed for 90 days Active benzonatate (TESSALON) 200 MG capsule Take 1 capsule (200 mg total) by mouth 3 (three) times daily as needed. 12/07/19 24 Active Breztri Aerosphere 160-9-4.8 mcg/actuation HFAA 2 puffs Inhalation Twice a day for 30 days 02/25/20 24 Active hydrOXYzine (ATARAX) 25 MG tablet 1 tablet as needed Orally Once a day for 30 days 02/25/20 24 Active ondansetron (ZOFRAN-ODT) [address] 1 OR 2 TABLETS UNDER THE TONGUE AND ALLOW TO DISSOLVE IF NEEDED FOR NAUSEA DURING PREP ON 05/25/2022 OR 05/26/2022. Active carvediloL (COREG) 12.5 MG tablet Take 1 tablet (12.5 mg total) by mouth 2 (two) times daily. Active montelukast (SINGULAIR) 10 mg tablet Take 1 tablet (10 mg total) by mouth daily. Active Januvia 50 mg tablet Take 1 tablet (50 mg total) by mouth daily. Active polycarbophiL (FiberCon) 625 mg tablet 2 tablets as needed Orally once a day for 30 days 04/03/20 23 Active Active Problems Problem Noted Date Diagnosed Date Thrush 09/14/2023 Malignant neoplasm of upper lobe, right bronchus or lung 08/28/2023 Cancer Staging:Clinical stage from 09/01/2023:Stage IIIA(cT1b, cN2, cM0) - Unsigned Nausea and vomiting, unspecified vomiting type 1 06/03/2021 Colon cancer screening 04/03/2022 Abdominal bloating 04/03/2022 Immunizations Name Administration Dates Next Due (Shingrix, Recombinant, Adju vanted) Zoster Vaccine IM 06/17/2018 Covid 19 Vaccine, Unspecified 06/26/2020 Hepatitis A Adult 09/03/2018,02/08/2018 Influenza Four-qiv Pf 02/11/2019,02/08/2018 Influenza High Dose Preserva tive Free IM ([id number]) 02/14/2020 Influenza Quad-qiv Non Pf 03/13/2021,02/19/2017, 04/24/2014 Influenza Three-TIV Non-PF 4+YRS IM 03/13/2021,1 Influenza Three-tiv Non-pf 06/03/2013 Influenza Three-tiv Pf 06/03/2013 Influenza, High Dose Seasonal 04/24/2014, 014 Pneumococcal Polysaccharide (Pneumovax) 06/17/19 19,07/13/2017 Tdap 09/03/2017 Family History Medical History Relation Name Comments Diabetes Father Heart failure Father Diabetes Mother Heart failure Mother Hypertension Mother Kidney failure Mother Relation Name Status Comments Brother 1 Brother 2 Alive Brother 3 Alive Brother 4 Alive Brother 5 Alive Brother 6 Alive Brother 7 Father Mother Sister 1 Sister 2 Sister 3 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 Tobacco Use Types Packs/Day Years Used Date Smoking Tobacco: Former Cigarettes Q uit: 09/2023 Passive Smoke Exposure: Current Smokeless Tobacco: Never Alcohol Use Standard Drinks/Week Comments Never 0 (1 standard drink = 0.6 oz pur e alcohol) Family and Community Support Answer Gregor e Recorded Help with Day to Day Activities Not on file 05/26/2023 Feeling Lonely or Isolated Not on file 05/26 Educational Attainment Answer Date Tima rded Speak language other than Brazilian at home Not on file 05/26/2023 Want help with school or training Not on file 05/26/2023 Substance Use Answer Date Recorded Used prescription meds for non-medical reasons N ot on file 05/26/2023 Used illegal drugs past 12 months Not on file 05/26/2023 Comments Unknown Sex and Gender Information Value Date Recorded Sex Assigned at Not on file Legal Sex Female 5:20 PM CDT Gender Identity Not on file Sexual Orientation Not on file Last Filed Vital Signs Vital Sign Reading Time Taken Comments Blood Pressure 116/57 06/10/2024 1:34 PM EST Pulse 87 06/10/2024 1:34 PM EST Temperature 36.9 C (98.5 F) 06/10/2024 1:34 PM EST Respiratory Rate 18 06/10/2024 1:34 PM EST Oxygen Saturation 94% 06/10/2024 1:34 PM EST RA Inhaled Oxygen Concentration - - Weight 115.2 kg (254 lb) 06/10/2024 1:34 PM EST Height 170.2 cm (5' 7.01 ) 06/10/2024 1:34 PM ES T Body Mass Index 39.77 06/10/2024 1:34 PM EST Plan of Treatment Health Maintenance Due Date Last Done Comments CT Colonography 1960 Colonoscopy 1960 Colorectal Cancer Screening 1960 FOBT/FIT 1960 Fit-DNA (Cologuard) 1960 Sigmoidoscopy 1960 Depression Screening (12+) 1972 HIV Screening 11/29/1975 Hepatitis C Screening 1978 Pap Smear 1981 Shingles Vaccine (Zoster) (2 of 2) 08/12/20182018 Pneumococcal 50+ years (2 of 2 - PCV) 06/17/2019 06/17/2018, 07/13/2017 Respiratory Syncytial Virus (RSV) Adult or (1 - Risk 60-74 years 1-dose series) 2020 COVID-19 VACCINE (2023-2 5 season) 2024 10/03/2021, 02/06/2021, 06/26/2020, Additional history exists Influenza Vaccine (Season Ended) 2025 03/13/2021, 02/14/2020, 02/19/2017, Additional history exists Tobacco Cessation Counseling and Screening (12+) 06/10/2025 06/10/2024 Breast Cancer Screening 01/14/2026 01/15/2024 Lipid Panel 09/03/2027 09/02/2024 DTAP/TDAP/TD VACCINES (2 - T d or Tdap) 09/04/2027 09/03/2017 Procedures Procedure Name Priority Date/Time Associated Diagnosis Comments MM DIGITAL MAMMO SCREEN WITH MILTON BILATERAL Routine 01/15/2024 10:18 AM EDT Other screening mammogram from Last 3 Months or Most Recently Relevant to Health Maintenance Results * MM digital mammo screen with milton bilateral (01/15/2024 10:18 AM EDT) Anatomical Region Laterality Modality Breast Bilateral Mammography 01/24/2024 4:53 PM EDT Impressions 01/24/2024 4:56 PM EDT FINAL IMPRESSION: ACR BI-RADS 2: Benign findings. RECOMMENDATIONS: Routine annual screening mammography. A letter including results and recommendations was sent to the patient. Density notification was provided to patients with type 3 or 4 breast tissue pattern. Patient information entered into a reminder system with a target due date for the next mammogram. At our facility, a [place] marker is positioned over a visible skin lesion and a linear marker is used to indicate a scar. A triangular marker is placed on a self reported palpable finding. Note: Mammography does not detect approximately 10-15% of breast cancers. An annual clinical breast exam by the patient's breast care physician and regular monthly self breast exams by the patient are integral parts of breast cancer screening, in addition to annual mammography. A normal mammogram does not completely exclude the presence of breast cancer, especially if there is an abnormal finding on physical exam. When clinically indicated, a biopsy should not be deferred because of a normal mammogram report. cc: Narrative 01/24/2024 4:56 PM EDT PROCEDURE: Bilateral digital screening mammogram with tomosynthesis. REASON FOR EXAM: Routine screening. FAMILY HISTORY: There is no family history of breast cancer. COMPARISON STUDY: [facility] 2021 and 2022 from [facility] FINDINGS: Craniocaudal and mediolateral oblique images of both breasts were obtained in 2D, C-view, and 3D modes. The breast tissue has pattern b (scattered fibroglandular densities). There has been no change. There is no evidence of dominant mass, architectural distortion, or suspicious calcifications. Bilateral vascular calcifications are noted. This examination was reviewed with the benefit of computer-aided detection (CAD). us Yamilet Cloeman PA-C IMG MAMMOGRAPHY ORDERABLES Final Result from Last 3 Months or Most Recently Relevant to Health Maintenance Care Teams Nursery School Attendant Relationship Specialty Start Date End Date Laurie Gutierrez MD [address] [place] [address] PCP - General Internal Medicine 04/03/22 Cecilio Barfield MD [address] [address] Radiation Oncologist Radiation Oncology 08/28/23 Sriram Lobato MD [address] [place] [address] [address] [place] [address] Referring Physician General Internal Medicine 11/24/23
--- OUTSIDE RECORDS SUMMARY | 2024-11-15 13:57 | XMS_ITS | Encounter Summary ---
Author Organization [employer] ([place], [place], [place], [place]) Address [address] [place] [address] Care Team Providers Care Towing Pilot Name Role Phone Laurie Gutierrez MD Primary Care Provider [phone] Cecilio Barfield MD Unavailable [phone] Sriram Lobato MD Unavailable [phone] Reason for Referral * Ultrasound (Routine) - Closed Specialty Diagnoses / Procedures Referred By Contac t Referred To Contact Diagnoses Cyst of kidney, acquired Procedures US renal complete Anders Meredith MD [address] [place] [address] Phone: tel: fax: Referral ID Status Reason Start Date Expiration Date Visits Re quested Visits Authorized [id number] Closed 02/10/2023 08/09/2023 1 1 Encounter Details Date Type Department Care Team (Late st Contact Info) Description 02/10/2023 Outside Orders [facility] Scheduling 1 [place] [address] Anders Meredith MD [address] [address] Cyst of kidney, acquired (Primary Dx) 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 Tobacco Use Types Packs/Day Years Used Date Smoking Tobacco: Every Day Smokeless Tobacco: Never Alcohol Use Standard Drinks/Week Comments Never 0 (1 standard drink = 0.6 oz pur e alcohol) Family and Community Support Answer Gregor e Recorded Help with Day to Day Activities Not on file 05/26/2023 Feeling Lonely or Isolated Not on file 05/26 Educational Attainment Answer Date Tima rded Speak language other than Togolese at home Not on file 05/26/2023 Want [...] on file Sexual Orientation Not on file COVID-19 Exposure Response Date Recorded In the last 10 days, have yo u been in contact with someone who was confirmed or suspected to have Coronavirus/COVID-19? No / Unsure 03/13/2023 1:15 PM EDT documented as of this encounter Plan of Treatment Not on file documented as of this encounter Results * US renal complete (03/13/2023 2:14 PM EDT) Anatomical Region Laterality Modality Abdomen, Kidney Ultrasound 03/13/2023 3:25 PM EDT Impressions 03/13/2023 3:27 PM EDT Multiple right renal cysts. Images reviewed, interpreted, and dictated by Dr. Ezequiel Gama. Transcribed by Agustina Ceballos PA-C. Narrative 03/13/2023 3:27 PM EDT RENAL ULTRASOUND HISTORY: Renal cyst. PROCEDURE: Ultrasound images of the kidneys were obtained. FINDINGS: Limited images of the liver parenchyma demonstrate normal echogenicity . The right kidney measures 12 cm in length. It is normal echogenicity . There are multiple cystic lesions projecting off the right kidney measuring between 15 and 35 mm. These likely represent cysts. The left kidney measures 11 cm in length. It is normal echogenicity . There is no hydronephrosis . Procedure Note Carolyn Gama MD - 03/13/2023 RENAL ULTRASOUND HISTORY: Renal cyst. PROCEDURE: Ultrasound images of the kidneys were obtained. FINDINGS: Limited images of the liver parenchyma demonstrate normal echogenicity . The right kidney measures 12 cm in length. It is normal echogenicity . There are multiple cystic lesions projecting off the right kidney measuring between 15 and 35 mm. These likely represent cysts. The left kidney measures 11 cm in length. It is normal echogenicity . There is no hydronephrosis . IMPRESSION: Multiple right renal cysts. Images reviewed, interpreted, and dictated by Dr. Ezequiel Gama. Transcribed by Agustina Ceballos PA-C. us Anders Meredith MD [facility] [place] Final Result documented in this encounter Visit Diagnoses Diagnosis Cyst of kidney, acquired- Primary Acquired cyst of kidney Cyst of kidney, acquired Acquired cyst of kidney documented in this encounter Care Teams Towing Pilot Relationship Specialty Start Date End Date Laurie Gutierrez MD [address] [place] [address] PCP - General Internal Medicine 04/03/22 Cecilio Barfield MD [address] [address] Radiation Oncologist Radiation Oncology 08/28/23 Sriram Lobato MD [address] [place] [address] [place] [address] Referring Physician General Internal Medicine 11/24/23 documented as of this encounter
--- OUTSIDE RECORDS SUMMARY | 2024-11-15 13:57 | XMS_ITS | Encounter Summary ---
Author Organization [employer] ([place], [place], [place], [place]) Address [address] [place] [address] Care Team Providers Care Banking Teacher Name Role Phone Laurie Gutierrez MD Primary Care Provider [phone] Cecilio Barfield MD Unavailable [phone] Sriram Lobato MD Unavailable [phone] Encounter Details Date Type Department Care Team (Late st Contact Info) Description 06/10/2024 Outside Orders [facility] Admitting [address] [place] [address] Provider, Not In System [place] 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 Tobacco Use Types Packs/Day Years [...] Date Tima rded Speak language other than Senegalese at home Not on file 05/26/2023 Want [...] on file documented as of this encounter Visit Diagnoses Not on filedocumented in this encounter Care Teams Banking Teacher Relationship Specialty Start Date End Date Laurie Gutierrez MD [address] [place] [address] PCP - General Internal Medicine 04/03/22 Cecilio Barfield MD [address] [address] Radiation Oncologist Radiation Oncology 08/28/23 Sriram Lobato MD [address] [place] [address] [place] [address] Referring Physician General Internal Medicine 11/24/23 documented as of this encounter
--- OUTSIDE RECORDS SUMMARY | 2024-11-15 13:57 | XMS_ITS | Encounter Summary ---
Author Organization Healthcare Address [address] [place] [address] Care Team Providers Care Drug Safety Coordinator Name Role Phone Laurie Gutierrez MD Primary Care Provider [phone] Joshua Martínez MD Unavailable Jasmina Smith LPN Unavailable Unavailable Encounter Details Date Type Department Care Team (Late st Contact Info) Description 11/01/2024 Orders Only [facility] [id number] [place] [address] Radiation Oncology, Physician, [address] [place], [place] [id number] 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 Tobacco Use Types Packs/Day Years [...] any [facility] in the [facility], were you homeless or living in [...] any time in the past 12 m [facility], were you homeless or living in [...] drink first t laurie in the morning (EYE-PRODUCTION CONTROL PLANNER) to steady your nerves or to get [...] Upcoming Encounters Date Type Department Care Team ([facility] st Contact Info) Description 11/29/2024 10:30 AM EDT Clinical Support [facility] [address] [facility] [place] [address] 11/29/2024 11:00 AM EDT Office Visit [facility] [address] [facility] [place] [address] Satnam Colvin MD [address] [facility] [address] [facility] [address] [place] [address] 11/29/2024 12:30 PM EDT Appointment [facility] [address] [place] [address] 11/30/2024 1:30 PM EDT Appointment [facility] 1 [address] [place] [address] 12/01/2024 2:00 PM EDT Appointment [facility] [address] [place] [address] 12/06/2024 11:40 AM EDT Appointment [facility] [address] [place] [address] Haven Blum, HEAD OF SALES [address] [place] [address] 01/19/2025 9:30 AM EDT Appointment [facility] Radiology [address] 1st [place] [address] 01/19/2025 10:45 AM EDT Office Visit [place] [facility] [address], [address] [place] [address] Abhilash Bangura MD [address] [place] [address] 03/08/2025 1:00 PM EDT Office Visit [facility] [address] [place] [address] Teresita Oconnell MD [address] [place] [address] documented as of this encounter Procedures Procedure Name Priority Date/Time Associated Diagnosis Comments RAD ONC ARIA SESSION SUMMARY Routine 11/01/2024 10:56 AM EDT documented in this encounter Results * Rad Onc Aria Session Summary (11/01/2024 10:56 AM EDT) Course ID C1 ARIA RADIATION ONCOLOGY Course Intent Palliative ARIA RADIATION ONCOLOGY Course Start Date 09/26/2024 1:36 PM ARIA RADIATION ONCOLOGY Course First Treatment Date 10/24/2024 12:01 PM ARIA RADIATION ONCOLOGY Course Last Treatment Date 11/01/2024 10:52 AM ARIA RADIATION ONCOLOGY Course Elapsed Days 8 ARIA RADIATION ONCOLOGY Reference Point ID Brain WBRT ARIA RADIATION ONCOLOGY Reference Point Dosage Given to Date 21 Gy ARIA RADIATION ONCOLOGY Reference Point Session Dosage Given 3 Gy ARIA RADIATION ONCOLOGY Plan ID [id number] ARIA RADIATION ONCOLOGY Plan Name Brain WBRT_PTV ARIA RADIATION ONCOLOGY Plan Fractions Treated to Date 7 ARIA RADIATION ONCOLOGY Plan Total Fractions Prescribed 10 ARIA RADIATION ONCOLOGY Plan Prescribed Dose Per Fraction 3 Gy ARIA RADIATION ONCOLOGY Plan Total Prescribed Dose 3,000 CGy ARIA RADIATION ONCOLOGY Plan Primary Reference Point Brain WBRT ARIA RADIATION ONCOLOGY 11/01/2024 10:5 6 AM EDT Physician Radiation Oncology RADIATION ONCOLO GY ORDERABLES Final Result ARIA RADIATION ONCOLOGY documented in this encounter Visit Diagnoses Not on filedocumented in this encounter Additional Health Concerns Infection Onset Date Last Indicated Resolved Time 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, CITY MAGISTRATE Panic 10/26/2024 10/31/2024 Assessment Noted Time PHQ-9 Depression Total Score: 0 09/01/19 3:26 PM EDT A fall risk assessment has been complete d for the patient 10/06/2024 2:29 PM EDT A Body Mass Index follow-up plan has been documented for the patient 10/31/2024 4:09 PM EDT documented as of this encounter Care Teams Drug Safety Coordinator Relationship Specialty Start Date End Date Laurie Gutierrez MD [address] [place] [address] PCP - General 12/09/23 Joshua Martínez MD [address] [place], [place] [id number] [place] [address] Consulting Physician Radiation Oncology 09/19/24 Jasmina Smith LPN VALUE-BASED TR[place] [address] TCM Nurse 10/19/24 11/01/24 documented as of this encounter
--- OUTSIDE RECORDS SUMMARY | 2024-11-15 13:57 | XMS_ITS | Encounter Summary ---
Author Organization [employer] ([place], [place], [place], [place]) Address [address] [place] [address] Care Team Providers Care Jewelry Estimator Name Role Phone Laurie Gutierrez MD Primary Care Provider [phone] Cecilio Barfield MD Unavailable [phone] Sriram Lobato MD Unavailable [phone] Encounter Details Date Type Department Care Team (Late st Contact Info) Description 02/27/2023 Outside Orders [facility] Scheduling 1 [place] [address] Keegan Palacios APRN [address] [place], [place] [id number] Screening mammogram, encounter for (Primary Dx) 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 Tobacco Use Types [...] Date Tima rded Speak language other than Martiniquais at home Not on file 05/26/2023 Want [...] as of this encounter Visit Diagnoses Diagnosis Screening mammogram, encounter for- Primary documented in this encounter Care Teams Jewelry Estimator Relationship Specialty Start Date End Date Laurie Gutierrez MD [address] [place] [address] PCP - General Internal Medicine 04/03/22 Cecilio Barfield MD [address] [address] Radiation Oncologist Radiation Oncology 08/28/23 Sriram Lobato MD [address] [place] [address] Referring Physician General Internal Medicine 11/24/23 documented as of this encounter
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
--- OUTSIDE RECORDS SUMMARY | 2024-11-15 13:57 | XMS_ITS | Referral Summary ---
Author Organization [employer] ([place], [place], [place], [place]) Address [address] [place] [address] Care Team Providers Care Livestock Rancher Name Role Phone Laurie Gutierrez MD Primary Care Provider Cecilio Barfield MD Unavailable [phone] Sriram Lobato MD Unavailable [phone] Allergies Active Allergy Reactions Criticality Noted [...] Influenza High Dose Preserva tive Free IM (IFH527) 02/14/2020 Influenza Quad-qiv Non Pf 03/13/2021,02/19/2017, 04/24/2014 Influenza Three-TIV Non-PF 4+YRS IM 03/13/2021,1 Influenza Three-tiv Non-pf 06/03/2013 Influenza Three-tiv Pf 06/03/2013 Influenza, High Dose Seasonal 04/24/2014, 014 Pneumococcal Polysaccharide (Pneumovax) 06/17/19 19,07/13/2017 Tdap 09/03/2017 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 Tobacco Use Types Packs/Day Years [...] Date Tima rded Speak language other than Ugandan at home Not on file 05/26/2023 Want [...] 06/10/2024 1:34 PM EST Plan of Treatment Not on file Procedures Procedure Name Priority Date/Time Associated Diagnosis [...] the next mammogram. At our facility, a [place] marker is positioned over a visible skin [...] family history of breast cancer. COMPARISON STUDY: [facility] 2021 and 2022 from [facility] FINDINGS: Craniocaudal and mediolateral oblique images of both breasts were obtained in 2D, C-view, and 3D modes. The breast tissue has pattern b (scattered fibroglandular densities). There has been no change. There is no evidence of dominant mass, architectural distortion, or suspicious calcifications. Bilateral vascular calcifications are noted. This examination was reviewed with the benefit of computer-aided detection (CAD). Yamilet Coleman PA-C IMG MAMMOGRAPHY ORDERABLES Final Result from Last 3 Months or Most Recently Relevant to Health Maintenance Care Teams Livestock Rancher Relationship Specialty Start Date End Date Laurie Gutierrez MD [address] [place] [address] PCP - General Internal Medicine 04/03/22 Cecilio Barfield MD [address] [address] Radiation Oncologist Radiation Oncology 08/28/23 Sriram Lobato MD [address] [place] [address] [address] [place] [address] Referring Physician General Internal Medicine 11/24/23
--- OUTSIDE RECORDS SUMMARY | 2024-11-15 13:57 | XMS_ITS | Encounter Summary ---
Author Organization [employer] ([place], [place], [place], [place]) Address [address] [place] [address] Care Team Providers Care Molding Manager Name Role Phone Laurie Gutierrez MD Primary Care Provider [phone] Cecilio Barfield MD Unavailable [phone] Sriram Lobato MD Unavailable [phone] Reason for Referral * Diagnostic X-Ray (Routine) - Closed Specialty Diagnoses / Procedures Referred By Contac t Referred To Contact Diagnoses Right hand pain Procedures XR humerus 2 views right Laurie Gutierrez MD [address] [place] [address] Phone: tel: fax: Referral ID Status Reason Start Date Expiration Date Visits Re quested Visits Authorized [id number] Closed 08/11/2022 02/07/2023 1 1 * Diagnostic X-Ray (Routine) - Closed Specialty Diagnoses / Procedures Referred By Contac t Referred To Contact Diagnoses Right hand pain Procedures XR hand 3 views right Laurie Gutierrez MD [address] [place] [address] Phone: tel: fax: Referral ID Status Reason Start Date Expiration Date Visits Re quested Visits Authorized [id number] Closed 08/11/2022 02/07/2023 1 1 Encounter Details Date Type Department Care Team (Late st Contact Info) Description 08/11/2022 Outside Orders [facility] Admitting [address] [place] [address] Laurie Gutierrez MD [address] [place] [address] Right hand pain (Primary Dx) 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 Tobacco Use Types Packs/Day Years Used Date Smoking Tobacco: Every Day Smokeless Tobacco: Never Alcohol Use Standard Drinks/Week Comments Never 0 (1 standard drink = 0.6 oz pur e alcohol) Comments Unknown Sex and Gender Information Value Date Recorded Sex Assigned at Not on file Legal Sex Female 5:20 PM CDT Gender Identity Not on file Sexual Orientation Not on file documented as of this encounter Plan of Treatment Not on file documented as of this encounter Results * XR hand 3 views right (08/11/2022 12:50 PM EDT) Anatomical Region Laterality Modality Hand X-Ray 08/11/2022 1:35 PM EDT Impressions 08/11/2022 1:36 PM EDT Questionable fracture as above. RIGHT HAND SERIES HISTORY: Acute right hand pain. COMPARISON: None. FINDINGS: A three view exam demonstrates no acute fracture or dislocation. 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 No soft tissue abnormality is seen. IMPRESSION: Degenerative changes with no acute bony abnormality. Images reviewed, interpreted, and dictated by Dr. Ezequiel Gama. Transcribed by Kianna Tucker (Nia). Narrative 08/11/2022 1:36 PM EDT RIGHT HUMERUS SERIES HISTORY: Acute right arm pain. COMPARISON: None FINDINGS: A 2 view exam demonstrates a questionable radial head fracture. No other fracture identified. Procedure Note Carolyn Gama MD - 08/11/2022 RIGHT HUMERUS SERIES HISTORY: Acute right arm pain. COMPARISON: None FINDINGS: A 2 view exam demonstrates a questionable radial head fracture. No other fracture identified. IMPRESSION: Questionable fracture as above. RIGHT HAND SERIES HISTORY: Acute right hand pain. COMPARISON: None. FINDINGS: A three view exam demonstrates no acute fracture or dislocation. 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 No soft tissue abnormality is seen. IMPRESSION: Degenerative changes with no acute bony abnormality. Images reviewed, interpreted, and dictated by Dr. Ezequiel Gama. Transcribed by Kianna Tucker (Nia). us Laurie Gutierrez MD [facility] Final Result * XR humerus 2 views right (08/11/2022 12:49 PM EDT) Anatomical Region Laterality Modality Arm, Elbow, Shoulder X-Ray 08/11/2022 1:35 PM EDT Impressions 08/11/2022 1:36 PM EDT Questionable fracture as above. RIGHT HAND SERIES HISTORY: Acute right hand pain. COMPARISON: None. FINDINGS: A three view exam demonstrates no acute fracture or dislocation. 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 No soft tissue abnormality is seen. IMPRESSION: Degenerative changes with no acute bony abnormality. Images reviewed, interpreted, and dictated by Dr. Ezequiel Gama. Transcribed by Kianna Tucker (Nia). Narrative 08/11/2022 1:36 PM EDT RIGHT HUMERUS SERIES HISTORY: Acute right arm pain. COMPARISON: None FINDINGS: A 2 view exam demonstrates a questionable radial head fracture. No other fracture identified. Procedure Note Carolyn Gama MD - 08/11/2022 RIGHT HUMERUS SERIES HISTORY: Acute right arm pain. COMPARISON: None FINDINGS: A 2 view exam demonstrates a questionable radial head fracture. No other fracture identified. IMPRESSION: Questionable fracture as above. RIGHT HAND SERIES HISTORY: Acute right hand pain. COMPARISON: None. FINDINGS: A three view exam demonstrates no acute fracture or dislocation. 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 No soft tissue abnormality is seen. IMPRESSION: Degenerative changes with no acute bony abnormality. Images reviewed, interpreted, and dictated by Dr. Ezequiel Gama. Transcribed by Kianna Tucker (Nia). us Laurie Gutierrez MD [facility] Final Result documented in this encounter Visit Diagnoses Diagnosis Right hand pain- Primary Pain in soft tissues of limb Right hand pain Pain in soft tissues of limb Right hand pain Pain in soft tissues of limb documented in this encounter Care Teams Molding Manager Relationship Specialty Start Date End Date Laurie Gutierrez MD [address] [place] [address] PCP - General Internal Medicine 04/03/22 Cecilio Barfield MD [address] [facility] [address] [place] [address] Radiation Oncologist Radiation Oncology 08/28/23 Sriram Lobato MD [address] [facility] [address] [place] [address] Referring Physician General Internal Medicine 11/24/23 documented as of this encounter
--- OUTSIDE RECORDS SUMMARY | 2024-11-15 13:57 | XMS_ITS | Encounter Summary ---
Author Organization Healthcare Address [address] [place] [address] Care Team Providers Care Claims Adjuster Crop Name Role Phone Laurie Gutierrez MD Primary Care Provider [phone] Joshua Martínez MD Unavailable Jasmina Smith LPN Unavailable Unavailable Encounter Details Date Type Department Care Team (Latest Contact Info) Description 11/01/2024 Travel 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 Tobacco Use Types Packs/Day Years [...] any time in the past 12 m [facility], were you homeless or living in [...] any time in the past 12 m [facility], were you homeless or living in [...] drink first t laurie in the morning (EYE-PREFORM MACHINE OPERATOR) to steady your nerves or [...] [facility], 2nd [place] [address] 11/29/2024 11:00 AM EDT Office Visit Pav [facility] Head, Neck & Respiratory [address] [facility], 2nd [place] [address] Satnam Colvin MD [address] [facility] [address] [place] [address] 11/29/2024 12:30 PM EDT Appointment [facility] 1 [address] [place] [address] 11/30/2024 1:30 PM EDT Appointment [facility] 1 [address] [place] [address] 12/01/2024 2:00 PM EDT Appointment [facility] 1 [address] [place] [address] 12/06/2024 11:40 AM EDT Appointment [facility] CC Radiation [address] [facility]. [id number] [place] [address] Haven Blum, HAND CHAIN MAKER [address] [place] [address] 01/19/2025 9:30 AM EDT Appointment [facility] S Radiology [address], 1st [place] [address] 01/19/2025 10:45 AM EDT Office Visit [place] [facility] [address], 1st [place] [address] Abhilash Bangura MD [address] [place] [address] 03/08/2025 1:00 PM EDT Office Visit [facility] Wenceslao 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, LOCKSTITCH WAISTBAND SETTER Panic 10/26/2024 10/31/2024 Assessment Noted Time PHQ-9 Depression Total Score: 0 09/01/19 25 3:26 PM EDT A fall risk assessment has been complete d for the patient 10/06/2024 2:29 PM EDT A Body Mass Index follow-up plan has been documented for the patient 10/31/2024 4:09 PM EDT documented as of this encounter Care Teams Claims Adjuster Crop Relationship Specialty Start Date End Date Laurie Gutierrez MD [address] [place] [address] PCP - General 12/09/23 Joshua Martínez MD [address] [place] [address] Consulting Physician Radiation Oncology 09/19/24 Jasmina Smith LPN VALUE-BASED [place] [address] [facility] Nurse 10/19/24 11/01/24 documented as of this encounter
--- OUTSIDE RECORDS SUMMARY | 2024-11-15 13:57 | XMS_ITS | Encounter Summary ---
Author Organization Healthcare Address [address] [place] [address] Care Team Providers Care Linen Tech Name Role Phone Laurie Gutierrez MD Primary Care Provider [phone] Joshua Martínez MD Unavailable Jasmina Smith LPN Unavailable Unavailable Encounter Details Date Type Department Care Team (Late st Contact Info) Description 10/27/2024 Orders Only [facility] CC Radiation [id number] [place] [address] Radiation Oncology, Physician, [address] [place], [place] [id number] 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 Tobacco Use Types Packs/Day Years [...] [facility] the [facility], were [facility] homeless or living [...] drink first t laurie in the morning (EYE-CONSTRUCTION INSPECTOR) to steady your nerves or to [...] of Assessment Author No Risk Indicated 10/27/2024 8:00 AM EDT Monika Arboleda RN * Question Answer Date of Assessment Author 1. Wish to be (Past 1 Month) No 10/27/2024 8:00 AM EDT Monika Ledezma RN 2. Non-Specific Active Suici radha Thoughts (Past 1 Month) No 10/27/2024 8:00 AM EDT Abiodun Ledezma RN 6. Suicidal Behavior (Lifetime) No 8:00 AM EDT Monika Ledezma RN documented as of this encounter Plan of Treatment Upcoming Encounters Date Type Department Care Team (Late st Contact Info) Description 11/29/2024 10:30 AM EDT Clinical Support Pav [facility] Head, Neck & Respiratory [address] [facility], 2nd [place] [address] 11/29/2024 11:00 AM EDT Office Visit Pav [facility] Head, Neck & Respiratory [address] [facility], 2nd [place] [address] Satnam Colvin MD [address] [facility] [address] [place] [address] 11/29/2024 12:30 PM EDT Appointment [facility] 1 [address] [place] [address] 11/30/2024 1:30 PM EDT Appointment [facility] 1 [address] [place] [address] 12/01/2024 2:00 PM EDT Appointment [facility] 1 [address] [place] [address] 12/06/2024 11:40 AM EDT Appointment [facility] CC Radiation [address] [facility]. [id number] [place] [address] Haven Blum, MANAGER MARKETING [address] [facility] [address] [place] [address] 01/19/2025 9:30 AM EDT Appointment [facility] S Radiology [address], 1st [place] [address] 01/19/2025 10:45 AM EDT Office Visit [place] [facility] [address], 1st [place] [address] Abhilash Bangura MD [address] [place] [address] 03/08/2025 1:00 PM EDT Office Visit [facility] [place] [address] [facility]. [address] [place] [address] Teresita Oconnell MD [address] [place] [address] documented as of this encounter Procedures Procedure Name Priority Date/Time Associated Diagnosis Comments RAD ONC ARIA SESSION SUMMARY Routine 10/27/2024 12:10 PM EDT documented in this encounter Results * Rad Onc Aria Session Summary (10/27/2024 12:10 PM EDT) Course ID C1 ARIA RADIATION ONCOLOGY Course Intent Palliative ARIA RADIATION ONCOLOGY Course Start Date 09/26/2024 1:36 PM ARIA RADIATION ONCOLOGY Course First Treatment Date 10/24/2024 12:01 PM ARIA RADIATION ONCOLOGY Course Last Treatment Date 10/27/2024 12:07 PM ARIA RADIATION ONCOLOGY Course Elapsed Days 3 ARIA RADIATION ONCOLOGY Reference Point ID Brain WBRT ARIA RADIATION ONCOLOGY Reference Point Dosage Given to Date 12 Gy ARIA RADIATION ONCOLOGY Reference Point Session Dosage Given 3 Gy ARIA RADIATION ONCOLOGY Plan ID [id number] ARIA RADIATION ONCOLOGY Plan Name Brain WBRT_PTV ARIA RADIATION ONCOLOGY Plan Fractions Treated to Date 4 ARIA RADIATION ONCOLOGY Plan Total Fractions Prescribed 10 ARIA RADIATION ONCOLOGY Plan Prescribed Dose Per Fraction 3 Gy ARIA RADIATION ONCOLOGY Plan Total Prescribed Dose 3,000 CGy ARIA RADIATION ONCOLOGY Plan Primary Reference Point Brain WBRT ARIA RADIATION ONCOLOGY 10/27/2024 12:1 0 PM EDT Physician Radiation Oncology RADIATION ONCOLO GY [...] documented as of this encounter Care Teams Linen Tech Relationship Specialty Start Date End Date Laurie Gutierrez MD [address] [place] [address] PCP - General 12/09/23 Joshua Martínez MD [address] [place] [address] [address] [place] [address] Consulting Physician Radiation Oncology 09/19/24 Jasmina Smith LPN VALUE-BASED [place] [address] TCM Nurse 10/19/24 11/01/24 documented as of this encounter
--- OUTSIDE RECORDS SUMMARY | 2024-11-15 13:58 | XMS_ITS | Encounter Summary ---
Author Organization Healthcare Address [address] [place] [address] Care Team Providers Care Jewelry Sales Associate Name Role Phone Laurie Gutierrez MD Primary Care Provider [phone] Joshua Martínez MD Unavailable Jasmina Smith LPN Unavailable Unavailable Encounter Details Date Type Department Care Team (Late st Contact Info) Description 10/31/2024 Orders Only [facility] CC Radiation [address] [place] [address] Radiation Oncology, Physician, [address] [place], [place] [id number] 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 Tobacco Use Types Packs/Day Years [...] [facility] in the [facility], were you homeless or living [...] time in the past 12 m [facility], were you homeless or living [...] first t laurie in the morning (EYE-SUPERVISOR CONTINUOUS WELD PIPE MILL) to steady your nerves or to get [...] Rankin RN documented as of this encounter Plan of Treatment Upcoming Encounters Date Type Department Care Team (Late st Contact Info) Description 11/29/2024 10:30 AM EDT Clinical Support Pav [facility] Head, Neck & Respiratory [address] [facility], 2nd [place] [address] 11/29/2024 11:00 AM EDT Office Visit Pav [facility] Head, Neck & Respiratory [address] [facility], 2nd [place] [address] Satnam Colvin MD [address] [facility] [address] [place] [address] 11/29/2024 12:30 PM EDT Appointment [facility] 1 [address] [place] [address] 11/30/2024 1:30 PM EDT Appointment [facility] 1 [address] [place] [address] 12/01/2024 2:00 PM EDT Appointment [facility] 1 [address] [place] [address] 12/06/2024 11:40 AM EDT Appointment [facility] CC Radiation [address] [facility]. [id number] [place] [address] Haven Blum, PURCHASING DEPARTMENT CLERK [address] [facility] [address] [place] [address] 01/19/2025 9:30 AM EDT Appointment [facility] S Radiology [address], 1st [place] [address] 01/19/2025 10:45 AM EDT Office Visit [place] [facility] [address], 1st [place] [address] Abhilash Bangura MD [address] [place] [address] 03/08/2025 1:00 PM EDT Office Visit [facility] [place] [address] [facility]. [address] [place] [address] Teresita Oconnell MD [address] [place] [address] documented as of this encounter Procedures Procedure Name Priority Date/Time Associated Diagnosis Comments RAD ONC ARIA SESSION SUMMARY Routine 10/31/2024 8:41 AM EDT documented in this encounter Results * Rad Onc Aria Session Summary (10/31/2024 8:41 AM EDT) Course ID C1 ARIA RADIATION ONCOLOGY Course Intent Palliative ARIA RADIATION ONCOLOGY Course Start Date 09/26/2024 1:36 PM ARIA RADIATION ONCOLOGY Course First Treatment Date 10/24/2024 12:01 PM ARIA RADIATION ONCOLOGY Course Last Treatment Date 10/31/2024 8:37 AM ARIA RADIATION ONCOLOGY Course Elapsed Days 7 ARIA RADIATION ONCOLOGY Reference Point ID Brain WBRT ARIA RADIATION ONCOLOGY Reference Point Dosage Given to Date 18 Gy ARIA RADIATION ONCOLOGY Reference Point Session Dosage Given 3 Gy ARIA RADIATION ONCOLOGY Plan ID [id number] ARIA RADIATION ONCOLOGY Plan Name Brain WBRT_PTV ARIA RADIATION ONCOLOGY Plan Fractions Treated to Date 6 ARIA RADIATION ONCOLOGY Plan Total Fractions Prescribed 10 ARIA RADIATION ONCOLOGY Plan Prescribed Dose Per Fraction 3 Gy ARIA RADIATION ONCOLOGY Plan Total Prescribed Dose 3,000 CGy ARIA RADIATION ONCOLOGY Plan Primary Reference Point Brain WBRT ARIA RADIATION ONCOLOGY 10/31/2024 8:41 AM EDT Physician Radiation Oncology RADIATION ONCOLO [...] documented as of this encounter Care Teams Jewelry Sales Associate Relationship Specialty Start Date End Date Laurie Gutierrez MD [address] [place] [address] PCP - General 12/09/23 Joshua Martínez MD [address] [place] [address] [address] [place] [address] Consulting Physician Radiation Oncology 09/19/24 Jasmina Smith LPN VALUE-BASED [place] [address] TCM Nurse 10/19/24 11/01/24 documented as of this encounter
--- OUTSIDE RECORDS SUMMARY | 2024-11-15 13:58 | XMS_ITS | Encounter Summary ---
Author Organization Healthcare Address [address] 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 Wish to be (Past 1 Month) No 025 10:14 AM EDT Flor Pierre RN 2. Non-Specific Active Suici radha Thoughts (Past 1 Month) No 10/28/2024 10:14 AM EDT Marilu Pierre RN 6. Suicidal Behavior (Lifetime) No 10:14 AM EDT Flor Pierre RN documented as of this encounter Miscellaneous Notes * Progress Notes - Mariah Rowley - 10/28/2024 3:10 PM EDT Encounter Type: In Person Visit Disease Status: Established Patient Clinic Location: [facility] Disease Type: Lung & Bronchus, Brain & Other Nervous System Education Provided: Lodging Intervention Level: 2 Units (1 unit = 15 minutes): 1 Narrative: FIELD DIRECTOR met with pt along with FIELD DIRECTOR Dafne to follow up on VM regarding [facility]. Pt currently inpatient but wondering about staying at HL after discharge. Pt wanting to stay at HL while finishing radiation. FIELD DIRECTOR informed pt that a referral cannot be submitted while pt still inpatient and that once pt is discharged FIELD DIRECTOR can look into getting pt set up to stay. Pt voiced understanding and appreciation for the assistance. No further needs identified. FIELD DIRECTOR to remain available for any ongoing needs or support. FIELD DIRECTOR working with pt's inpatient care team to coordinate dc plan and determine when to submit HL referral. Mariah Rowley MSW, FIELD DIRECTOR [facility] Psych-Oncology Services documented in this encounter Plan of Treatment Upcoming Encounters Date Type Department Care Team ([facility] st Contact Info) Description 11/29/2024 10:30 AM EDT Clinical Support Pav CC Head, Neck & Respiratory [address] [facility], 2nd [place] [address] 11/29/2024 11:00 AM EDT Office Visit Pav CC Head, Neck & Respiratory [address] [facility], 2nd [place] [address] Satnam Colvin MD [address] [facility] [address] [place] [address] 11/29/2024 12:30 PM EDT Appointment [facility] 1 [address] [place] [address] 11/30/2024 1:30 PM EDT Appointment [facility] 1 [address] [place] [address] 12/01/2024 2:00 PM EDT Appointment [facility] 1 [address] [place] [address] 12/06/2024 11:40 AM EDT Appointment [facility] CC Radiation [address] [facility]. [id number] [place] [address] Haven Blum, MASTICATOR 800 [facility] [address] [place] [address] 01/19/2025 9:30 AM EDT Appointment [facility] S Radiology [address], 1st [place] [address] 01/19/2025 10:45 AM EDT Office Visit [place] [facility] [address], 1st [place] [address] Abhilash Bangura MD [address] [place] [address] 03/08/2025 1:00 PM EDT Office Visit [facility] [place] [address] [place] [address] Teresita Oconnell MD [address] [place] [address] documented as of this encounter [...] documented as of this encounter Care Teams Sales Service Rep Relationship Specialty Start Date End Date Laurie Gutierrez MD [address] [place] [address] PCP - General 12/09/23 Joshua Martínez MD [address] [place] [address] Consulting Physician Radiation Oncology 09/19/24 Jasmina Smith LPN VALUE-BASED [place] [address] TCM Nurse 10/19/24 11/01/24 documented as of this encounter
--- OUTSIDE RECORDS SUMMARY | 2024-11-15 13:58 | XMS_ITS | Encounter Summary ---
Author Organization Healthcare Address [address] 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, [address] [place] [phone] 11/29/2024 11:00 AM EDT Office Visit [facility] [address] [facility] [place] [address] Satnam Colvin MD [address] [facility] [address] [place] [address] 11/29/2024 12:30 PM EDT Appointment [facility] [address] [place] [phone] 11/30/2024 1:30 PM EDT Appointment [facility] [address] [place] [phone] 12/01/2024 2:00 PM EDT Appointment [facility] [address] [place] [phone] 12/06/2024 11:40 AM EDT Appointment [facility] [address] [id number] [place] [address] Haven Blum, TOOL POLISHING MACHINE OPERATOR [address] [facility] [id number] [place] [phone] 01/19/2025 9:30 AM EDT Appointment [facility] [address] [place] [address] 01/19/2025 10:45 AM EDT Office Visit [facility] [address] [place] [address] Abhilash Bangura MD [address] [place] [address] 03/08/2025 1:00 PM EDT Office Visit [facility] Logan Wenceslao 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 PROCESS TECH Panic 10/26/2024 10/31/2024 Assessment Noted Time PHQ-9 Depression Total Score: 0 09/01/19 25 3:26 PM EDT A fall risk assessment has been complete d for the patient 10/06/2024 2:29 PM EDT A Body Mass Index follow-up plan has been documented for the patient 10/31/2024 4:09 PM EDT documented as of this encounter Care Teams Force Adjustment Supervisor Relationship Specialty Start Date End Date Laurie Gutierrez MD [address] [place] [address] PCP - General 12/09/23 Joshua Martínez MD [address] [place] [phone] Consulting Physician Radiation Oncology 09/19/24 Jasmina Smith LPN VALUE-BASED [place] [address] TCM Nurse 10/19/24 11/01/24 documented as of this encounter
--- OUTSIDE RECORDS SUMMARY | 2024-11-15 13:59 | XMS_ITS | Data Portability ---
Author Organization [facility] Address [address] [place] [address] Assessment Encounter Date Assessment Date Assessment LastModified by Organization Details LastModified Time 12/02/2021 12/02/2021 Patient tolerated procedure well. Advised that mild vaginal discharge may occur for 24hrs and spotting for 48hrs. Patient will report passage of clots, onset of profuse bleeding, foul vaginal odor, fever and/or pelvic pain. Not available 12/02/2021 10:59:59 Plan of Treatment Reminders Order Date Submit Date Provider Last Modified By Organization Details Last Modified Time Details Appointments None recorded. Lab test, urine 2021 022 [facility], [address] [place] [address] , [place], [address], 2 12:54:31 cytology report, thin prep, smear or scraping, cervical or vaginal 2021 022 [facility], [address], [place], [address], 2 15:09:24 pathology study 2021 022 [facility], [address], [place], [address], 2 15:09:26 pathology study 2021 022 [facility], [address], [address], [place], [address], 15:09:59 HbA1c (hemoglobin A1c), blood 2021 [facility], [address], [place], [address], 06:15:19 CMP, serum or plasma 2021 [facility], [address], [place], [address], 06:15:18 lipid panel, serum 2021 [facility], [address], [place], [address], 06:15:19 CBC w/ auto diff 2021 [facility], [address], [place], [address], 06:15:18 Referral gynecologis t referral 2021 [email or web address] Wilma [facility], [address] [place] [address] Rd, [place], [address], 15:14:49 Procedures None recorded. Surgeries None recorded. Imaging LDCT, chest, for lung cancer screening 2021 [place] (Central[facility] Sched[facility]), [address] [place] [address] , [place], [address], 10:05:49 US, transvagina l 2021 [email or web address] [facility], [address] [place] [address] , [place], [address], 11:51:30 Medication Orders metformin ER 500 mg tablet,exte nded release 24 hr 2021 [employer], [address] [place] [address], [id number], 09:41:16 omeprazole 20 mg capsule,del ayed release 2021 [facility], [address] [place] [address], [id number], 09:41:14 atorvastati n 40 mg tablet 2021 [facility] [facility], [address] [place] [address], [id number], 09:41:14 gabapentin 600 mg tablet 2021 [employer] [employer], [address] [place] [address], [id number], 09:41:15 carvedilol 6.25 mg tablet 2021 [facility] [facility], [address] [place] [address], [id number], 09:41:15 triamterene 37.5 mg-hydrochl orothiazide 25 mg capsule 2021 [employer] [employer], [address] [place] [address], [id number], 09:41:16 amlodipine 5 mg tablet 2021 [employer] [employer], [address] [place] [address], [id number], 09:41:15 cyanocobala min (vit B-12) ER 1,000 mcg tablet,exte nded release 2021 [employer] [employer], [address] [place] [address], [id number], 09:41:14 Patient TargetsNo targets recorded. Patient Instructions Encounter Date Encounter Id Patient Instructions Last Modified By Organization Details Last Modified Time 09/13/2021 [id number] learning about t ype 2 diabetes [email or web address] Not available 09/13/2021 09:23:25 type 2 diabetes: care instructions [email or web address] Not available 09/13/2021 09:23:25 gastroesophageal reflux disease (GERD): care instructions [email or web address] Not available 09/13/2021 09:23:25 high cholesterol : care instructions Not available 09/13/2021 09:23:25 vaginal bleeding after menopause: care instructions [email or web address] Not available 09/13/2021 09:35:03 high blood press ure: care instructions [email or web address] Not available 09/13/2021 09:23:25 learning about h igh blood pressure [email or web address] Not available 09/13/2021 09:23:25 discussed vagina l bleeding she is past due for BEHAVIORAL HEALTH CARE COORDINATOR exam will refer to BEHAVIORAL HEALTH CARE COORDINATOR for further evaluation and workup pt verbalized understanding, apt made discussed healthy diet and diabetes plan of care f/u in 6 months for routine diabetes visit [email or web address] Not available 09/13/2021 10:53:07 09/25/2021 [id number] 1. Schedule pelv ic ultrasound, OV and endometrial bx in [place] to evaluate PMB. Not available 09/26/2021 19:53:27 10/21/2021 [id number] US images review ed and discussed with Teresa. Anteverted uterus normal size with 2 small intramural fibroids measuring 1.4 and 1.5 cms. Endometrium measured 5 mm. Right and left ovaries small with normal appearance. Endometrial bx done today. Plan topical estrogens intravaginally twice a week if pathology negative. Not available 10/21/2021 11:06:55 12/02/2021 [id number] 1. Findings discussed with patient. Post-procedure instructions given. Avoid intercourse, douches, tampons x 2 weeks. Take showers until vaginal discharge stops. Advised that a brown/black vaginal discharge is common following the use of Monsel's solution. Call the office if fever, pelvic pain or significant vaginal bleeding occurs. No tampons or SI x 1 week. Call for any fever, foul smelling discharge or worsening pain. We will call pathology results and recommendations in one week. Plan outpatient surgery LEEP for any atypical cells. 2. Consider cath UA in return visit if pathology completely negative. Not available 12/02/2021 12:52:33 Discussed the spectrum of abnormal pap smears, the relationship to HPV infection, high and low risk HPV types, cervical dysplasia, cervical cancer, and genital warts. Reviewed HPV as a sexually transmitted disease, the natural course of most infections and risk factors for infection. Reviewed the difference between LGSIL and HGSIL, and management strategies for each. Colposcopy procedure reviewed in detail and preformed today. [email or web address] Not available 12/02/2021 10:59:59 12/18/2021 [id number] smoking cessatio n counseling, greater than 3 minutes up to 10 minutes* Not available 12/19/2021 19:06:46 1. She was advis ed regarding adequate calcium/vitamin D intake to include 1200 mg calcium with 1000 IU vitamin D daily from all sources preferably dietary. 2. Encourage regular weight bearing exercise. 3. Plan first DEXA scan no later than 65. 4. Screening mammogram is scheduled for 12-23-21. 5. Teresa declines colon cancer screening referral. 6. Cervical cancer screening is current. 7. Plan LDCT for lung cancer screening. 8. Start Premarin vaginal cream as directed and follow up in 6 weeks for exam and cath urine specimen. Not available 12/19/2021 19:09:28 Reason for Referral [employer] Referral for Po stmenopausal bleeding Referring Physician: Evangelina Nguyen, Family Medicine, Encounter Date: 09/13/2021 Results Created Date Observation Date Name Description Value Unit Range Abnormal Flag Note LastModifiedBy Organization Detail LastModifiedTime 09/14/1909/14/2021 CBC WITH DIFFE RENTI AL/PL ATELE T WBC 7.0 x10e3 /uL 3.4-10 .8 Not Available [facility] ([facility]) [address] [facility], [place], [address], 09/14/2021 06:15:18 09/14/19 22 09/14/2021 CBC WITH DIFFE RENTI AL/PL ATELE T RBC 4.67 x10e6 /uL 3.77-5 .28 Not Available [facility] ([facility]) [address] [facility], [place], [address], 09/14/2021 06:15:18 09/14/19 22 09/14/2021 CBC WITH DIFFE RENTI AL/PL ATELE T hemoglobin 14.6 g/dL 11.1-1 5.9 Not Available [facility] ([facility]) [address] [facility], [place], [address], 09/14/2021 06:15:18 09/14/19 22 09/14/2021 CBC WITH DIFFE RENTI AL/PL ATELE T hematocrit 44.4 % 34.0-4 6.6 Not Available [facility] ([facility]) [address] [facility], [place], [address], 09/14/2021 06:15:18 09/14/19 22 09/14/2021 CBC WITH DIFFE RENTI AL/PL ATELE T MCV 95 fL 79-97 Not Available [facility] ([facility]) [address] [place], [address], 09/14/2021 06:15:18 09/14/19 22 09/14/2021 CBC WITH DIFFE RENTI AL/PL ATELE T MCH 31.3 pg 26.6-3 3.0 Not Available [facility] ([facility]) [address] [place], [address], 09/14/2021 06:15:18 09/14/19 22 09/14/2021 CBC WITH DIFFE RENTI AL/PL ATELE T MCHC 32.9 g/dL 31.5-3 5.7 Not Available [facility] ([facility]) [address] [place], [address], 09/14/2021 06:15:18 09/14/19 22 09/14/2021 CBC WITH DIFFE RENTI AL/PL ATELE T RDW 11.8 % 11.7-1 5.4 Not Available [facility] ([facility]) [address] [facility], [place], [address], 09/14/2021 06:15:18 09/14/19 22 09/14/2021 CBC WITH DIFFE RENTI AL/PL ATELE T platelets 178 x10e3 /uL 150-45 0 Not Available [facility] ([facility]) [address] [facility], [place], [address], 09/14/2021 06:15:18 09/14/19 22 09/14/2021 CBC WITH DIFFE RENTI AL/PL ATELE T neutrophils 61 % not estab. Not Available [facility] ([facility]) [address] [facility], [place], [address], 09/14/2021 06:15:18 09/14/19 22 09/14/2021 CBC WITH DIFFE RENTI AL/PL ATELE T lymphs 30 % not estab. Not Available [facility] ([facility]) [address] [facility], [place], [address], 09/14/2021 06:15:18 09/14/19 22 09/14/2021 CBC WITH DIFFE RENTI AL/PL ATELE T monocytes 4 % not estab. Not Available [facility] ([facility]) [address] [facility], [place], [address], 09/14/2021 06:15:18 09/14/19 22 09/14/2021 CBC WITH DIFFE RENTI AL/PL ATELE T eos 4 % not estab. Not Available [facility] ([facility]) [address] [facility], [place], [address], 09/14/2021 06:15:18 09/14/19 22 09/14/2021 CBC WITH DIFFE RENTI AL/PL ATELE T basos 1 % not estab. Not Available [facility] ([facility]) [address] [facility], [place], [address], 09/14/2021 06:15:18 09/14/19 22 09/14/2021 CBC WITH DIFFE RENTI AL/PL ATELE T immature cells DISTILLER Not Available [facility] ([facility]) [address] [place], [address], 09/14/2021 06:15:18 09/14/19 22 09/14/2021 CBC WITH DIFFE RENTI AL/PL ATELE T neutrophils (absolute) 4.3 x10e3 /uL 1.4-7. 0 Not Available [facility] ([facility]) [address] [place], [address], 09/14/2021 06:15:18 09/14/19 22 09/14/2021 CBC WITH DIFFE RENTI AL/PL ATELE T lymphs (absolute) 2.1 x10e3 /uL 0.7-3. 1 Not Available [facility] ([facility]) [address] [place], [address], 09/14/2021 06:15:18 09/14/19 22 09/14/2021 CBC WITH DIFFE RENTI AL/PL ATELE T monocytes(ab solute) 0.3 x10e3 /uL 0.1-0. 9 Not Available [facility] ([facility]) [address] [place], [address], 09/14/2021 06:15:18 09/14/19 22 09/14/2021 CBC WITH DIFFE RENTI AL/PL ATELE T eos (absolute) 0.3 x10e3 /uL 0.0-0. 4 Not Available [facility] ([facility]) [address] [place], [address], 09/14/2021 06:15:18 09/14/19 22 09/14/2021 CBC WITH DIFFE RENTI AL/PL ATELE T baso (absolute) 0.1 x10e3 /uL 0.0-0. 2 Not Available [facility] ([facility]) [address] [place], [address], 09/14/2021 06:15:18 09/14/19 22 09/14/2021 CBC WITH DIFFE RENTI AL/PL ATELE T immature granulocytes 0 % not estab. Not Available [facility] ([facility]) [address] [facility], [place], [address], 09/14/2021 06:15:18 09/14/19 22 09/14/2021 CBC WITH DIFFE RENTI AL/PL ATELE T immature grans (abs) 0.0 x10e3 /uL 0.0-0. 1 Not Available [facility] ([facility]) [address] [facility], [place], [address], 09/14/2021 06:15:18 09/14/19 22 09/14/2021 CBC WITH DIFFE RENTI AL/PL ATELE T NRBC DISTILLER Not Available [facility] ([facility]) [address] [facility], [place], [address], 09/14/2021 06:15:18 09/14/19 22 09/14/2021 CBC WITH DIFFE RENTI AL/PL ATELE T hematology comments: DISTILLER Not Available [facility] ([facility]) [address] [facility], [place], [address], 09/14/2021 06:15:18 09/14/19 22 09/14/2021 COMP. METAB OLIC PANEL (14) glucose 129 mg/dL 65-99 above high normal Not Available [facility] ([facility]) [address] [facility], [place], [address], 09/14/2021 06:15:18 09/14/19 22 09/14/2021 COMP. METAB OLIC PANEL (14) BUN 14 mg/dL 8-27 Not Available [facility] ([facility]) [address] [place], [address], 09/14/2021 06:15:18 09/14/19 22 09/14/2021 COMP. METAB OLIC PANEL (14) creatinine 0.65 mg/dL 0.57-1 .00 Not Available [facility] ([facility]) [address] [place], [address], 09/14/2021 06:15:18 09/14/19 22 09/14/2021 COMP. METAB OLIC PANEL (14) eGFR 101 mL/mi n/1.7 3 >59 Not Available [facility] ([facility]) [address] [facility], [place], [address], 09/14/2021 06:15:18 09/14/19 22 09/14/2021 COMP. METAB OLIC PANEL (14) BUN/creatini ne ratio 22 -28 Not Available [facility] ([facility]) [address] [facility], [place], [address], 09/14/2021 06:15:18 09/14/19 22 09/14/2021 COMP. METAB OLIC PANEL (14) sodium 141 mmol/ L 134-14 4 Not Available [facility] ([facility]) [address] [place], [address], 09/14/2021 06:15:18 09/14/19 22 09/14/2021 COMP. METAB OLIC PANEL (14) potassium 4.3 mmol/ L 3.5-5. 2 Not Available [facility] ([facility]) [address] [place], [address], 09/14/2021 06:15:18 09/14/19 22 09/14/2021 COMP. METAB OLIC PANEL (14) chloride 100 mmol/ L 96-106 Not Available [facility] ([facility]) [address] [place], [address], 09/14/2021 06:15:18 09/14/19 22 09/14/2021 COMP. METAB OLIC PANEL (14) carbon dioxide, total 25 mmol/ L 20-29 Not Available [facility] ([facility]) [address], [place], [address], 09/14/2021 06:15:18 09/14/19 22 09/14/2021 COMP. METAB OLIC PANEL (14) calcium 9.4 mg/dL 8.7-10 .3 Not Available [facility] ([facility]) [address] [place], [address], 09/14/2021 06:15:18 09/14/19 22 09/14/2021 COMP. METAB OLIC PANEL (14) protein, total 7.2 g/dL 6.0-8. 5 Not Available [facility] ([facility]) [address], [place], [address], 09/14/2021 06:15:18 09/14/19 22 09/14/2021 COMP. METAB OLIC PANEL (14) albumin 4.5 g/dL 3.8-4. 9 Not Available [facility] ([facility]) [address] [facility] [place] [address], 09/14/2021 06:15:18 09/14/19 22 09/14/2021 COMP. METAB OLIC PANEL (14) globulin, total 2.7 g/dL 1.5-4. 5 Not Available [facility] ([facility]) [address] [facility] [place], [address], 09/14/2021 06:15:18 09/14/19 22 09/14/2021 COMP. METAB OLIC PANEL (14) A/G ratio 1.7 1.2-2. 2 Not Available [facility] ([facility]) [address] [facility] [place], [address], 09/14/2021 06:15:18 09/14/19 22 09/14/2021 COMP. METAB OLIC PANEL (14) bilirubin, total 0.6 mg/dL 0.0-1. 2 Not Available [facility] ([facility]) [address] [facility], [place], [address], 09/14/2021 06:15:18 09/14/19 22 09/14/2021 COMP. METAB OLIC PANEL (14) alkaline phosphatase 90 IU/L 44-121 Not Available [facility] ([facility]) [address] [facility], [place], [address], 09/14/2021 06:15:18 09/14/19 22 09/14/2021 COMP. METAB OLIC PANEL (14) AST (SGOT) 16 IU/L 0-40 Not Available [facility] ([facility]) [address] [place], [address], 09/14/2021 06:15:18 09/14/19 22 09/14/2021 COMP. METAB OLIC PANEL (14) ALT (SGPT) 13 IU/L 0-32 Not Available [facility] ([facility]) [address] [place], [address], 09/14/2021 06:15:18 09/14/19 22 09/14/2021 LIPID PANEL cholesterol, total 124 mg/dL 100-19 9 Not Available [facility] ([facility]) [address] [place], [address], 09/14/2021 06:15:19 09/14/19 22 09/14/2021 LIPID PANEL triglyceride s 67 mg/dL 0-149 Not Available [facility] ([facility]) [address] [place], [address], 09/14/2021 06:15:19 09/14/19 22 09/14/2021 LIPID PANEL HDL cholesterol 47 mg/dL >39 Not Available [facility] ([facility]) [address] [place], [address], 09/14/2021 06:15:19 09/14/19 22 09/14/2021 LIPID PANEL VLDL cholesterol josr 14 mg/dL 5-40 Not Available [facility] ([facility]) [address] [facility], [place], [address], 09/14/2021 06:15:19 09/14/19 22 09/14/2021 LIPID PANEL LDL chol calc ([facility]) 63 mg/dL 0-99 Not Available [facility] ([facility]) [address] [facility], [place], [address], 09/14/2021 06:15:19 09/14/19 22 09/14/2021 LIPID PANEL comment: DISTILLER Not Available [facility] ([facility]) [address] [facility], [place], [address], 09/14/2021 06:15:19 09/14/1909/14/2021 HEMOG LOBIN A1C hemoglobin A1C 6.8 % 4.8-5. 6 above high normal Predi abete s: 5.7 - 6.4 Diabe carolyn: >6.4 Glyce chyna contr ol for adult s with diabe carolyn: <7.0 Not Available [facility] ([facility]) [address] [facility], [place], [address], 09/14/2021 06:15:19 10/22/1910/23/2021 PATHO LOGY LEEANN Hoskins t Mater ial submi tted: . endom etriu m - ENDOM ETRIA L BIOPS Y Not Available [facility] ([facility]) [address] [facility], [place], [address], 10/23/2021 15:09:58 10/22/1910/23/2021 PATHO LOGTerry Hoskins t Diagn osis: ENDOM ETRIU M, BIOPS Y: - NEGAT SVETLANA FOR ENDOM ETRIA L PAREN CHYMA FOR EVALU ATION . - MULTI PLE DETAC HED SUPER FICIA L FRAGM ENTS OF ENDOC ERVIC AL GLAND ULAR EPITH ELIUM WITH ATYPI A (SEE COMME NT). COMME NT: SECTI ONS SHOW THE ABOVE FINDI NGS. THERE IS NO ENDOM ETRIA L TISSU E PRESE NT FOR EVALU ATION . HOWEV ER, THERE IS AN ABUND ANT AMOUN T OF ENDOC ERVIC AL EPITH ELIUM THAT IS DETAC HED AND SHOWS MILD ATYPI A, THE SIGNI FICAN CE OF WHICH IS UNKNO WN. CLINI JOSR CORRE LATIO N WITH FOLLO W-UP CURET TAGE IS RECOM AMRIT D IF CLINI YENNIFER INDIC ATED. TMZ 10/23 1246 Local Not Available [facility] ([facility]) [address] [place], [address], 10/23/2021 15:09:58 10/22/19 22 10/23/2021 PATHO LOGY REPOR T . Commen t Elect shira solo veronika d: . Rishi silverman MD, Patho logis t Not Available [facility] ([facility]) [address] [place], [address], 10/23/2021 15:09:58 10/22/19 22 10/23/2021 PATHO LOGY REPOR T . Commen t Gross descr iptio n: . 1 CONTA INER, FORMA INDIO-F ILLED , LABEL ED WITH PATIE NT IDENT IFICA TION. ENDOM ETRIA L BIOPS Y: MINUT E FRAGM ENT(S ) OF MUCUS AND SOFT MATER IAL MEASU RING 0.5 X 0.4 X 0.1 CM IN AGGRE GATE. FILTE RED AND SUBMI TTED IN CASSE TTE(S ) A1. THE SPECI MEN MAY NOT SURVI VE PROCE SSING . HAV/H AV 10/22 1024 Local Not Available [facility] ([facility]) [address] [facility], [place], [address], 10/23/2021 15:09:58 10/22/19 22 10/23/2021 PATHO LOGY REPOR T . Commen t Patho logis t provi ded ICD-1 0: N95.0 Not Available [facility] ([facility]) [address] [facility], [place], [address], 10/23/2021 15:09:58 10/22/19 22 10/23/2021 PATHO LOGY REPOR T . Commen t CPT . 01978 1 Not Available [facility] ([facility]) [address] [facility], [place], [address], 10/23/2021 15:09:58 12/03/19 22 12/04/2021 IGP, APTIM A HPV, RFX 16/18 ,45 diagnosis: Commen t NEGAT SVETLANA FOR INTRA EPITH ELIAL ALONSO N OR SHIRLEY LAUREANO . Not Available [facility] ([facility]) [address] [facility], [place], [address], 12/04/2021 15:09:24 12/03/19 22 12/04/2021 IGP, APTIM A HPV, RFX 16/18 ,45 specimen adequacy: Commen t Satis facto ry for evalu ation . Endoc ervic al and/o r squam ous metap lasti c cells (endo cervi josr compo nent) are prese nt. Not Available [facility] ([facility]) [address] [place], [address], 12/04/2021 15:09:24 12/03/19 22 12/04/2021 IGP, APTIM A HPV, RFX 16/18 ,45 clinician provided ICD10: Gato t R85.6 19 Z12.4 Not Available [facility] ([facility]) [address] [facility], [place], [address], 12/04/2021 15:09:24 12/03/19 22 12/04/2021 IGP, APTIM A HPV, RFX 16/18 ,45 performed by: Gato Chavez , Cytot echno logis t (ASCP ) Not Available [facility] ([facility]) [address] [place], [address], 12/04/2021 15:09:24 12/03/19 22 12/04/2021 IGP, APTIM A HPV, RFX 16/18 ,45 electronical ly signed by: Gato Nieves MD, Patho logis t Not Available [facility] ([facility]) [address] [place], [address], 12/04/2021 15:09:24 12/03/19 22 12/04/2021 IGP, APTIM A HPV, RFX 16/18 ,45 . . Not Available [facility] ([facility]) [address] [place], [address], 12/04/2021 15:09:24 12/03/19 22 12/04/2021 IGP, APTIM A HPV, RFX 16/18 ,45 note: Gato carreon The Pap smear is a scree amelie test descuate latricia to aid in the detec tion of jarred ligna nt and malig nant condi tions of the uteri ne cervi x. It is not a diagn ostic proce dure and shoul d not be used as the sole means of detec ting cervi josr cance r. Both false -posi tive and false -nega tive repor ts do occur . Not Available [facility] ([facility]) [address] [place], [address], 12/04/2021 15:09:24 12/03/19 22 12/04/2021 IGP, APTIM A HPV, RFX 16/18 ,45 test methodology: Commen t This liqui d based ThinP rep(R ) pap test was ross rome with the use of an image guide meg wagner Not Available [facility] ([facility]) [address] [facility], [place], [address], 12/04/2021 15:09:24 12/03/19 22 12/04/2021 IGP, APTIM A HPV, RFX 16/18 ,45 HPV aptima Negati ve negati ve This nucle ic acid ampli ficat ion test detec ts fourt een high- risk HPV types (16,1 8,31, 33,35 ,39,4 5,51, 52,56 ,58,5 9,66, 68) witho ut diffe renti ation . Not Available [facility] ([facility]) [address] [facility], [place], [address], 12/04/2021 15:09:24 12/03/19 22 12/04/2021 PATHO LOGY REPOR T . Commen t Mater ial submi tted: . PART A: endoc ervix - ENDOC ERVIC AL CURET TAGE PART B: cervi x - CERVI JOSR BIOPS Y 1:00. Modif iers: 1:00 Not Available [facility] ([facility]) [address] [facility], [place], [address], 12/04/2021 15:09:26 12/03/19 22 12/04/2021 PATHO LOGY REPOR T . Commen t Diagn osis: Part A: ENDOC ERVIC AL CURET TAGE: SCANT BENIG N ENDOC ERVIC AL EPITH ELIUM . MINUT E PARTI AL THICK NESS ECTOC ERVIC AL EPITH ELIUM . Part B: CERVI JOSR BIOPS Y 1:00: ECTOC ERVIC AL TISSU E WITH HYPER KERAT OSIS AND HYPER GRANU LOSIS ; NO DEFIN ITE DYSPL ZARA PRESE NT. TRANS FORMA TION ZONE NOT REPRE SENTTracy Weaver. MXB 12/04 1503 Local Not Available [facility] ([facility]) [address] [facility], [place], [address], 12/04/2021 15:09:26 12/03/19 22 12/04/2021 PATHO LOGY REPOR T . Commen t Elect shira solo veronika d: . Manal i Miguel dennison MD, Patho logis t Not Available [facility] ([facility]) [address] [facility], [place], [address], 12/04/2021 15:09:26 12/03/19 22 12/04/2021 PATHO LOGY REPOR T . Commen t Gross descr iptio n: . 2 Conta iners , forma indio-f illed , label ed with patie nt ident ifica tion. Part A: ENDOC ERVIC AL CURET TAGE: RECEI DREW IS AN ENDOC ERVIC AL BRUSH . SCRAP INGS PRODU CE 1.0 X 0.1 X 0.1 CM IN AGGRE GATE OF MUCUS AND HEMOR RHAGI C MATER IAL. THE SPECI MEN IS FILTE RED AND ENTIR KAREN SUBMI TTED IN CASSE TTE(S ) A1. THE SPECI MEN MAY NOT SURVI VE PROCE SSING . Part B: CERVI OJSR BIOPS Y 1:00: 1 FRAGM ENT(S ) OF GREGORIO MUCOI D TISSU E MEASU RING 0.2 X 0.2 X 0.1 CM. SUBMI TTED RECEI DREW IN CASSE TTE(S ) B1. THE SPECI MEN MAY NOT SURVI VE PROCE SSING . MCL/M CL 12/03 0614 Local Not Available [facility] ([facility]) [address] [facility] [address], [place], [address], 12/04/2021 15:09:26 12/03/19 22 12/04/2021 PATHO LOGY REPOR T . Commen t CPT . 40881 1, 49315 2 Not Available [facility] ([facility]) [address] [facility] [address], [place], [address], 12/04/2021 15:09:26 12/03/19 22 12/02/2021 pregn pablo test, urine HCG negati ve Not Available [employer] [facility] [address] [place] [address] , [place], [address], 12/02/2021 11:00:01 10/22/19 22 10/21/2021 US, trans vagin al No observ ation record ed. [employer] [facility] [address] [place] [address] , [place], [address], 10/21/2021 11:04:17 10/22/19 22 US, trans vagin al No observ ation record ed. [facility] [employer] [facility] [address] [place] [address] , [place], [address], 10/21/2021 12:56:41 10/24/19 22 10/21/2021 US, trans vagin al No observ ation record ed. lpurdon [employer] [facility] [address] [place] [address] , [place], [address], 10/23/2021 15:29:47 10/24/19 22 10/21/2021 US, trans vagin al No observ ation record ed. BARCODE [employer] [facility] [address] [place] [address] , [place], [address], 10/23/2021 14:26:48 12/25/19 22 12/23/2021 MAMMO , scree amelie, digit al, bilat eral No observ ation record ed. [email or web address] [facility] (Central Scheduling) [address] [facility] , [place], [address], 12/25/2021 14:45:13 12/27/19 22 12/26/2021 - ldct lung [facility] Name: MARIAJOSE SHARP RA [address] [facility] [facility] Phys: Baldo weaver NP, George Clemens [place] frost 1976[address] : 1960 Age: 61 Sex: F Acct: [id number] Loc: G.CT PHONE #: [phone] Exam Date: 2021 Status : REG CLI FAX #: [phone] Rad# [id number] Unit# [id number] Admit Date: 2021 EXAMS: CPT CODE: [id number] CT CHEST LDCT LUNG SCREEN G0297 Examin ation: Lung cancer screen ing low dose CT chest 022 Histor y: 61-yea r-old female presen ts for lung cancer screen ing. 45-pac k-year smokin g histor y. Curren t smoker . The patien t is asympt omatic . The patien t has a writte n order from a clinic juana obtain ed during a lung cancer screen ing neema barrow and shared decisi on making visit. Patien t Height : 67 inches Patien t Weight : 209 pounds CTDI vol: 2.01 mGy DLP: 65.08 mGy*cm Techni que: Using low-do se techni que, helica l CT data was acquir ed in the axial plane throug h the chest. Images were render ed in 1.3 mm thick contig uous axial and caballero l sectio ns using soft tissue and lung window algori thms. Automa samaria exposu re contro l was employ ed to furthe r reduce radiat ion dose to the patien t. Compar bozena: 017 Findin gs: Mildly enlarg ed deep AP window node, again noted. Measur es 1.2 cm in short axial dimens ion, stable , benign . No enlarg ed hilar or axilla ry nodes are identi fied. Calcif ied right hilar node, again noted, second chato to old granul omatou s diseas e. Cabalelro ry artery calcif icatio ns, again noted. Heart size is normal . No signif icant perica rdial fluid/ thicke amelie. No pleura l fluid. Multip le cysts of the partia lly visual ized right kidney upper pole, only partia lly imaged , again noted. Lung window images again show mild to modera te emphys irch. Small region of focal bronch iolect asis of the right upper lobe near the minor fissur e, again noted. Multip le 8 mm and smalle r pulmon chato nodule s bilate rally, right more than left, stable . No new nodule s. Mild depend ent atelec tasis of both lower lobes and mild subseg mental atelec tasis/ focal fibros is of the lingul a and right middle lobe, simila r to before . IMPRES LISA: 1. Multip le 8 mm and smalle r pulmon chato nodule s bilate rally, stable since 2016, benign . No new nodule s. 2. Stable mild to modera te emphys rich. 3. Low dose CT chest in one year is recomm ended. PAGE 1 Signed Report (VIGNESH NUED) [facility] Name: MARIAJOSE SHARP RA [address] [place], [place] [address]a [facility] [employer] Phys: Baldo weaver NP, George Clemens [facility] [address] : 1960 Age: 61 Sex: F Acct: [id number] Loc: G.CT PHONE #: [phone] Exam Date: 2021 Status : REG CLI FAX #: [phone] Rad# [id number] Unit# [id number] Admit Date: 2021 EXAMS: CPT CODE: [id number] [id number] CT CHEST LDCT LUNG SCREEN G0297 LRAD2 - BENIGN APPEAR ANCE OR BEHAVI OR LR1YR - ANNUAL SCREEN ING IN 12 MONTHS Electr onical ly Signed by ALFONZO BROOKS MD on 2021 at 1645 Report ed and signed by: ALFONZO BROOKS MD CC: Evangelina jolly (Allis on)APR N; George weaver Dictat ed Date/T sammi: 2021 (1645) Techno logist : RIK A SALDIVAR Transc ribed Date/T sammi: 2021 (1645) Transc riptio nist: DR.CLA NEWBY Electr onic Signat ure Date/T sammi: 2021 (1645) Printe d Date/T sammi: 2021 (2458) BATCH NO: N/A PAGE 2 Signed Report CC'ed Logic: Orderi ng Provid er: BALDO Leon Attend ing Provid er: BALDO Leon Referr ing Provid er: BALDO Leon Consul ting Provid er: NATALIYA GEORGE [email or web address] [address] , [place], [address], 01/01/2022 13:53:49 Result Notes None recorded. Problems Name Problem SNOMED Code Status Onset Date Resolution Date Notes Provider Name and Address Organization Details Recorded Time Osteoarthritis 773598964 Active 2018 Paola Hyde null, [place] - [facility] 9 13:26:22 Hyperlipidemia 44797142 Active 2019 Mary Pradhan null, [place] - [facility] 0 09:00:41 Chronic obstructive pulmonary disease 78367797 Active 2020 Gloria Kumar null, [place] - [facility] 1 08:56:26 Gastroesophage al reflux disease 075521971 Active 2020 Gloria Kumar null, [place] - [facility] 1 08:57:37 Nausea 012266891 Active 2020 Paola Hyde null, [place] - [facility] 1 09:01:42 Type 2 diabetes mellitus 35974133 Active 2016 Mary Pradhan null, [place] - [facility] 7 15:12:55 Essential hypertension 68114323 Active 2016 Mary Pradhan shamir, [place] - [facility] 7 15:13:21 Problem Notes None recorded. Procedures Surgical History Date Name Laterality Status Provider Name and Address Organization Details Recorded Time 12/03/19 22 Colposcopy completed Wilma Ocampo, HEALTH CARE ATTORNEY [address], [place], [address], [place] - [facility] 12/02/2021 12:50:52 12/03/19 22 Colposcopy completed Wilma Dolanmond, HEALTH CARE ATTORNEY [address], [place], [address], [place] - [facility] 12/02/2021 12:54:48 12/03/19 22 Colposcopy completed Wilma Dolanmond, HEALTH CARE ATTORNEY [address], [place], [address], [place] - [facility] 12/06/2021 09:17:32 10/22/19 22 Endometrial Biopsy completed Wilma Ocampo, HEALTH CARE ATTORNEY [address], [place], [address], [place] - [facility] 10/21/2021 11:08:39 10/22/19 22 Endometrial Biopsy completed Wilma Ocampo, HEALTH CARE ATTORNEY [address], [place], [address], [place] - [facility] 10/29/2021 08:09:56 06/17/19 22 Positive Microalbumin completed Timo Knapp [place] - [facility] 06/17/2021 10:02:53 12/19/19 21 Date of Last Mammogram completed Shahana Rivas [place] - [facility] 09/25/2021 16:05:26 04/09/20 20 Date of Last Pap Smear completed Shahana [place] - [facility] 09/25/2021 16:03:39 09/29/19 20 Systolic B/P less than 130 mm Hg completed Becky Albarran [place] - [facility] 09/29/2019 08:58:44 09/29/19 20 Diastolic B/P 80-89 mm Hg completed Becky [place] - [facility] 09/29/2019 08:58:47 06/03/19 19 Systolic B/P less than 130 mm Hg completed Becky Albarran [place] - [facility] 06/03/2018 12:58:45 06/03/19 19 Diastolic B/P 80-89 mm Hg completed Becky [place] - [facility] 06/03/2018 12:58:48 Tympanic membrane repair completed Mary [place] [facility] 09/16/2016 15:15:30 Tubal Ligation completed Mary [place] [facility] 09/16/2016 15:15:39 Imaging Results None recorded. Procedure Notes None recorded. Medical Equipment None Reported. Allergies Allergen ID Allergen Name Allergen Category Reaction Reaction Severity Criticality Documentation Date Start Date Code Code System Note Provider Name and Address Organization Details Recorded Time 203712 meloxicam medicatio n Not available Not available Not available 09/29/2019 99787 RxNorm SAMANTA Humphries [facility] 0 08:50:26 474698 lisinopri l medicatio n cough Not available Not available 09/29/2019 65520 RxNorm SAMANTA Humphries [facility] 0 08:50:49 78049 Keflex medicatio n Not available Not available Not available 02/22/2016201216 7 RxNorm Not Available [facility] 6 10:16:19 Medications Name Sig Start Date Stop Date Status Note LastModified by Organization Details LastModified Time Prescript ion - Prior Authoriza tion Request 12/18 completed Not Available Not Available Not Available amoxicill in 500 mg capsule Take 1 capsule 3 times a week by oral route. 10/30 completed Not Available Not Available Not Available atorvasta tin 40 mg tablet TAKE 1 TABLET 1 TIME EACH DAY active Not Available Not Available No t Available metformin 500 mg tablet TAKE 1 TABLET 2 TIMES EACH DAY, WITH THE MORNING AND EVENING MEALS 09/13 completed Not Available Not Available Not Available cyanocoba omar (vit B-12) ER 1,000 mcg tablet,ex tended release TAKE 1 TABLET 1 TIME EACH DAY active Not Available Not Available No t Available terconazo le 0.4 % vaginal cream INSERT 1 APPLICAT ORFUL INTO THE VAGINA 1 TIME EACH DAY AT BEDTIME FOR 5 DAYS active Not Available Not Available No t Available bupropion HCl SR 150 mg tablet,12 hr sustained -release Take 1 tablet twice a day by oral route. 08/15 completed Not Available Not Available Not Available promethaz ine-DM 6.25 mg-15 mg/5 mL oral syrup TAKE 5 ML (1 TEASPOON FUL) EVERY 6 HOURS NEEDED 09/13 completed Not Available Not Available Not Available BD Alcohol Swabs Apply 1 pad as needed by topical route. 01/27 completed Not Available Not Available Not Available venlafaxi ne ER 37.5 mg capsule,e xtended release 24 hr 05/28 completed Not Available Not Available Not Available acetamino phen 325 mg tablet TAKE 2 TABLETS EVERY 6 HOURS NEEDED active Not Available Not Available No t Available carvedilo l 6.25 mg tablet TAKE 1 TABLET 2 TIMES EACH DAY WITH FOOD active Not Available Not Available No t Available prednison e 10 mg tablet 08/12 completed predniso ne 10 mg oral tablet;R ecorded Status: Recorded on: 08/02/19 15 1:41PM;D iscontin ued Status: Disconti nued on: 08/13/19 16 10:43AM; User: noy feliz Not Available Not Available Not Available gabapenti n 600 mg tablet TAKE 1 TABLET 4 TIMES EACH DAY active Not Available Not Available No t Available nicotine 14 mg/24 hr daily transderm al patch Apply 1 patch every day by transder mal route for 30 days. 08/09 completed Not Available Not Available Not Available clindamyc in HCl 300 mg capsule Take 1 capsule every 6 hours by oral route as directed for 10 days. 05/28 completed Not Available Not Available Not Available azithromy rashida 250 mg tablet TAKE 2 TABLETS ON THE FIRST DAY, THEN TAKE 1 TABLET EACH DAY ON THE NEXT 4 DAYS. 10/21 completed Not Available Not Available Not Available hydrocodo ne 5 mg-acetam inophen 325 mg tablet 1po bid prn 08/27 completed Not Available Not Available Not Available ondansetr on HCl 8 mg tablet Take 1 tablet every 8 hours by oral route as needed. 05/28 completed Not Available Not Available Not Available minocycli ne 100 mg capsule 10/30 completed Not Available Not Available Not Available fluconazo le 200 mg tablet 09/16 completed Not Available Not Available Not Available FreeStyle Lancets 28 gauge 01/27 completed Not Available Not Available Not Available prednison e 20 mg tablet TAKE 1 TABLET 1 TIME EACH DAY FOR 5 DAYS 10/21 completed Not Available Not Available Not Available simvastat in 10 mg tablet take 1 tablet (10 mg) by oral route once daily in the evening for 30 days 12/12 completed simvasta tin 10 mg oral tablet;c omment: changed by ;Prescri be Status: Prescrib ed on: 08/02/19 15 2:30PM;D iscontin ued Status: Disconti nued on: 12/13/19 15 8:34AM;U ser: noy brayEst. Completi on: 01/29/20 15;Pharm acJm ied: 08/02/19 15 2:30PM Not Available Not Available Not Available Accu-Chek Softclix Lancets 01/27 completed Not Available Not Available Not Available potassium chloride ER 10 mEq tablet,ex tended release 05/28 completed Not Available Not Available Not Available amlodipin e 5 mg tablet TAKE 1 TABLET 1 TIME EACH DAY active Not Available Not Available No t Available aspirin 81 mg tablet,de layed release TAKE 1 TABLET 1 TIME EACH DAY active Not Available Not Available No t Available doxycycli ne monohydra te 100 mg tablet 12/18 completed Not Available Not Available Not Available triamtere ne 37.5 mg-hydroc hlorothia zide 25 mg capsule TAKE 1 CAPSULE 1 TIME EACH DAY active Not Available Not Available No t Available ondansetr on 8 mg disintegr ating tablet PLACE 1 TABLET UNDER THE TONGUE AND ALLOW TO DISSOLVE EVERY 8 HOURS NEEDED. 02/27 completed Not Available Not Available Not Available meloxicam 7.5 mg tablet take 1 tablet (7.5 mg) by oral route once daily for 30 days 08/12 completed meloxica m 7.5 mg oral tablet;P rescribe Status: Prescrib ed on: 04/04/20 14 11:50AM; Disconti nued Status: Disconti nued on: 08/13/19 16 10:43AM; User: noy brayEst. Completi on: 05/04/20 14;Pharm Cristy ied: 04/04/20 14 11:50AM Not Available Not Available Not Available Zoloft 50 mg tablet Take 1 tablet every day by oral route. 08/09 completed Not Available Not Available Not Available oxycodone -acetamin ophen 10 mg-325 mg tablet 12/18 completed Not Available Not Available Not Available antipyrin e-benzoca ine 5.4 %-1.4 % ear drops instill into affected ear(s) by otic route every 2 hours as needed enough drops to fill ear canal 10/30 completed antipyri ne-benzo jeremiah 5.4-1.4 % otic drops;Pr escribe Status: Prescrib ed on: 10/06/19 15 10:23AM; User: Carine dozier n: Earache - ([id number]);Phar macyVeri fied: 10/06/19 15 10:23AM Not Available Not Available Not Available amlodipin e 10 mg tablet take 1 tablet (10 mg) by oral route once daily for 30 days 07/24 completed amlodipi ne 10 mg oral tablet;P rescribe Status: Prescrib ed on: 07/12/19 15 2:22PM;D iscontin ued Status: Disconti nued on: 07/25/19 15 1:39PM;U ser: hamptona ;Est. Completi on: 08/12/19 15;Pharm acyVerif ied: 07/12/19 15 2:22PM Not Available Not Available Not Available benzonata te 100 mg capsule TAKE 1 CAPSULE 3 TIMES EACH DAY FOR COUGH 09/25 completed Not Available Not Available Not Available hydrocodo ne 7.5 mg-acetam inophen 325 mg tablet 05/28 completed Not Available Not Available Not Available Banophen 25 mg tablet 07/07 completed Not Available Not Available Not Available nystatin 100,000 unit/gram topical cream APPLY TO THE AFFECTED AREA(S) BY TOPICAL ROUTE 2 TIMES PER DAY 04/09 completed Not Available Not Available Not Available nicotine 21 mg/24 hr daily transderm al patch Apply 1 patch every day by transder mal route for 30 days. 05/28 completed Not Available Not Available Not Available gabapenti n 300 mg capsule Take 1 capsule 3 times a day by oral route. 04/09 completed Not Available Not Available Not Available omeprazol e 20 mg capsule,d elayed release TAKE 1 CAPSULE 1 TIME EACH DAY active Not Available Not Available No t Available cyanocoba omar (vit B-12) 1,000 mcg sublingua l tablet TAKE 1 TABLET 1 TIME EACH DAY 09/13 completed Not Available Not Available Not Available mupirocin 2 % topical ointment APPLY A SMALL AMOUNT TO THE AFFECTED AREA BY TOPICAL ROUTE 3 TIMES PER DAY 01/27 completed Not Available Not Available Not Available gabapenti n 100 mg capsule 1 po q am and 2 po q pm 01/27 completed Not Available Not Available Not Available dexametha sone sodium phosphate 4 mg/mL injection solution 8mg x 1 dose now 02/11 completed Not Available Not Available Not Available ibuprofen 600 mg tablet 05/28 completed Not Available Not Available Not Available levofloxa rashida 500 mg tablet TAKE 1 TABLET 1 TIME EACH DAY FOR 7 DAYS 09/25 completed Not Available Not Available Not Available levofloxa rashida 750 mg tablet TAKE ONE (1) TABLET (750 MG) BY ORAL ROUTE ONCE DAILY 02/27 completed Not Available Not Available Not Available methylpre dnisolone 4 mg tablets in a dose pack TAKE ACCORDIN G TO PACKAGE INSTRUCT IONS 06/17 completed Not Available Not Available Not Available hydrocodo ne 10 mg-chlorp heniramin e 8 mg/5 mL oral susp extend.re l 12hr Take 5 mL every 12 hours by oral route. 09/28 completed Not Available Not Available Not Available albuterol sulfate HFA 90 mcg/actua tion aerosol inhaler Inhale 2 puffs every 4-6 hours by inhalati on route as needed for 16 days. 11/26 completed Not Available Not Available Not Available Zoloft 25 mg tablet Take 1 tablet every day by oral route. 08/09 completed Not Available Not Available Not Available cefdinir 300 mg capsule 09/16 completed Not Available Not Available Not Available dexametha sone sodium phosphate 10 mg/mL injection solution 8mg x 1 dose 12/27 completed Not Available Not Available Not Available metformin ER 500 mg tablet,ex tended release 24 hr TAKE 2 TABLETS 2 TIMES EACH DAY, WITH MORNING AND EVENING MEALS active Not Available Not Available No t Available doxycycli ne hyclate 100 mg tablet TAKE 1 TABLET 2 TIMES EACH DAY FOR 10 DAYS 09/13 completed Not Available Not Available Not Available Augmentin 500 mg-125 mg tablet Take 1 tablet every 12 hours by oral route for 10 days. 02/08 completed Not Available Not Available Not Available glucosami ne-chondr oitin 500 mg-400 mg capsule Take 1 capsule as needed by oral route. 01/27 completed Not Available Not Available Not Available amoxicill in 875 mg-potass ium clavulana te 125 mg tablet Take 1 tablet twice a day by oral route as directed for 7 days. 09/28 completed Not Available Not Available Not Available Vitamin B-12 1,000 mcg tablet Take 1 microgra m every day by oral route. 09/28 completed duplicat e Not Available Not Available Not Available Benadryl 25 mg capsule Take 1 capsule every 6-8 hours by oral route as needed. 05/28 completed Not Available Not Available Not Available Bactrim DS 800 mg-160 mg tablet take 1 tablet by oral route 2 times per day for 7 days 08/12 completed Bactrim DS 800-160 mg oral tablet;P rescribe Status: Prescrib ed on: 10/06/19 15 10:23AM; Disconti nued Status: Disconti nued on: 08/13/19 16 10:43AM; User: Susan Martinezi on: 10/13/19 15;Pharm acyVerif ied: 10/06/19 15 10:23AM Not Available Not Available Not Available Saline Nasal 0.65 % spray aerosol apply 2 sprays by nasal route 2 times a day 09/16 completed Saline Nasal 0.65 % nasal aerosol, spray;Re corded Status: Recorded on: 07/25/19 15 3:23PM;U ser: holly Not Available Not Available Not Available Premarin 0.625 mg/gram vaginal cream Insert 0.25 applicat orsful twice a week by vaginal route. active Not Available Not Available No t Available Ciprodex 0.3 %-0.1 % ear drops,june pension instill 4 drops into affected ear(s) by otic route every 12 hours for 7 days 08/12 completed Ciprodex 0.3-0.1 % otic drops,hill spension ;Prescri be Status: Prescrib ed on: 10/06/19 15 10:23AM; Disconti nued Status: Disconti nued on: 08/13/19 16 10:43AM; User: Susan joshi Completi on: 10/13/19 15;Pharm acyVerijo ied: 10/06/19 15 10:23AM Not Available Not Available Not Available bupropion HCl XL 300 mg 24 hr tablet, extended release TAKE 1 TABLET ONCE A DAY 10/20 completed Not Available Not Available Not Available Glucosami ne Chondroit in Maximum Strength 500 mg-400 mg capsule one po qd 01/27 completed Not Available Not Available Not Available epinastin e 0.05 % eye drops 01/27 completed Not Available Not Available Not Available metformin ER 500 mg tablet,ex tended release 24hr (osmotic) Take 4 tablets every day by oral route for 30 days. 09/13 completed Not Available Not Available Not Available glucosami ne sulf sod.chlor -chondroi tn sulf sodium 750 mg-600 mg tablet Take 1 tablet as needed by oral route as needed for 30 days. 03/31 completed glucosam ine-delilah droitn sulf.Na 750-600 mg oral tablet;R ecorded Status: Recorded on: 01/03/20 14 10:26AM; User: holly Not Available Not Available Not Available chlorhexi dine gluconate 0.12 % mouthwash Place 15 mL twice a day by mucous membrane route. 01/27 completed Not Available Not Available Not Available promethaz ine-DM Take 1tsp every 8 hours as needed 09/19 completed Not Available Not Available Not Available calcium 600 mg (as carbonate )-vitamin D3 10 mcg (400 unit) tablet TAKE 1 TABLET 2 TIMES EACH DAY 2022 active Not Available Not Available Not Avai lable Symbicort 160 mcg-4.5 mcg/actua tion HFA aerosol inhaler inhale 2 puffs by inhalati on route 2 times per day in the morning and evening 08/15 completed Symbicor t 160-4.5 mcg/actu ation inhalati on HFA aerosol inhaler; Recorded Status: Recorded on: 08/02/19 15 1:41PM;U ser: noy feliz Not Available Not Available Not Available FreeStyle Lite Meter kit 01/27 completed Not Available Not Available Not Available FreeStyle Lite Strips test two times each day 01/27 completed Not Available Not Available Not Available omeprazol e 20 mg tablet,de layed release TAKE 1 TABLET 1 TIME EACH DAY 08/27 completed Not Available Not Available Not Available Athlete's Foot AF 1 % topical cream APPLY TO THE AFFECTED AND SURROUND ING AREAS OF SKIN BY TOPICAL ROUTE ONCE DAILY 05/28 completed Not Available Not Available Not Available Calcium 600 + D(3) 600 mg-5 mcg (200 unit) capsule 05/28 completed Calcium 600 + D(3) 600 mg calcium- 200 unit oral capsule; Recorded Status: Recorded on: 01/03/20 14 10:26AM; User: holly Not Available Not Available Not Available Solu-Medr ol (PF) 125 mg/2 mL solution for injection 125 mg x 1 dose now 02/27 completed Not Available Not Available Not Available Mucus Relief ER 600 mg tablet, extended release TAKE 1 TABLET EVERY 12 HOURS FOR 7 DAYS 02/27 completed Not Available Not Available Not Available Chantix Continuin g Month Box 1 mg tablet Take 1 tablet twice a day by oral route for 30 days. 01/27 completed Not Available Not Available Not Available Chantix Starting Month Box 0.5 mg (11)-1 mg (42) tablets in dose pack as directed 01/27 completed Not Available Not Available Not Available Combivent Respimat 20 mcg-100 mcg/actua tion solution for inhalatio n INHALE 1 PUFF 4 TIMES EACH DAY active Not Available Not Available No t Available Accu-Chek Tanisha Plus Meter use as directed Dx:250.0 0 01/27 completed Accu-Kelsey k Tanisha Plus Meter miscella neous mis;Pre scribe Status: Prescrib ed on: 10/07/19 15 4:10PM;U ser: noy feliz;Pharma cyVerifi ed: 10/07/19 15 4:10PM Not Available Not Available Not Available Invokana 300 mg tablet TAKE 1 TABLET ONE TIME EACH DAY BEFORE THE FIRST MEAL OF THE DAY 02/10 completed Not Available Not Available Not Available Jardiance 10 mg tablet TAKE 1 TABLET 1 TIME EACH DAY active Not Available Not Available No t Available Breo Ellipta 200 mcg-25 mcg/dose powder for inhalatio n Inhale 1 puff every day by inhalati on route. 05/28 completed Not Available Not Available Not Available Shingrix (PF) 50 mcg/0.5 mL intramusc ular suspensio n, kit 08/09 completed Not Available Not Available Not Available Dexcom G6 Sensor device active Not Available Not Available Not Available Dexcom G6 Aromatherapist USE TO TEST BLOOD SUGAR DIRECTED active Not Available Not Available No t Available Dexcom G6 Transmitt er device active Not Available Not Available No t Available Vitals Date Recorded Body height Body mass index (BMI) Body weight Body temperature Heart rate Oxygen saturation Oxygen saturation in Arterial blood by Pulse oximetry Respiratory rate Systolic And Diastolic Provider Name and Address Organization Details Last Updated DateTime 2 170.18 cm 34.5 kg/m2 93627.3 2 g 98 [degF] 86 /min 99 % 99 % 19 /min 110/70 mm[Hg] Timo Knapp [place] - [facility] 2 08:58:16 Date Recorded Body height Body mass index (BMI) Body weight Systolic And Diastolic Provider Name and Address Organization Details Last Updated DateTime 09/25/2021 170.18 cm 33 kg/m2 47036.99 g 114/72 mm[Hg] Shahana Rivas [place] - [facility] 09/25/2021 16:10:51 Date Recorded Body height Body mass index (BMI) Body weight Systolic And Diastolic Provider Name and Address Organization Details Last Updated DateTime 10/21/2021 170.18 cm 33 kg/m2 61073.99 g 116/70 mm[Hg] Shahana Rivas [place] - [facility] 10/21/2021 10:42:36 Date Recorded Body height Body mass index (BMI) Body weight Systolic And Diastolic Provider Name and Address Organization Details Last Updated DateTime 12/02/2021 170.18 cm 33 kg/m2 17937.99 g 128/70 mm[Hg] Shahana Rivas [place] - [facility] 12/02/2021 11:00:32 Date Recorded Body height Body mass index (BMI) Body weight Systolic And Diastolic Provider Name and Address Organization Details Last Updated DateTime 12/18/2021 170.18 cm 32.7 kg/m2 01120.81 g 128/80 mm[Hg] Shahana Rivas [place] - [facility] 12/18/2021 16:36:43 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 Question Answer Notes LastModified by Organizat ion Details LastModified Time Tobacco Smoking Status Current Every Day Smoker Mary barksdale [place] - [facility] 09/16/2016 15:16:08 Able To Swim? Yes [email or web address] Information not available 09/16/2016 Do You Have An Advance Directive? No [email or web address] Information not available 09/25/2021 Do You Wear A Helmet When Biking? No [email or web address] Information not available 09/16/2016 Are You Blind Or Do You Have Difficulty Seeing? No [email or web address] Information not available 09/16/2016 Is Blood Transfusion Acceptable In An Emergency? Yes [email or web address] Information not available 09/25/2021 What Is Your Level Of Caffeine Consumption? Occasional [email or web address] Information not available 09/16/2016 How Much Tobacco Do You Chew? None [email or web address] Information not available 09/16/2016 In The 14 Days Before Symptom Onset, Have You Had Close Contact With A Laboratory-confir med COVID-19 While That Case Was Ill? No [email or web address] Information not available 09/25/2021 In The 14 Days Before Symptom Onset, Have You Had Close Contact With A Person Who Is Under Investigation For COVID-19 While That Person Was Ill? No Information not available 09/25/2021 Have You Been To An Area Known To Be High Risk For COVID-19? No [email or web address] Information not available 09/25/2021 Are You Deaf Or Do You Have Serious Difficulty Hearing? No [email or web address] Information not available 09/16/2016 What Type Of Diet Are You Following? DIABETIC [email or web address] Information not available 09/16/2016 Which Illicit Or Recreational Drugs Have You Used? None Information not available 09/16/2016 Have You Processed Blood Or Body Fluids From An Ebola Virus Disease Patient Without Appropriate PPE? No [email or web address] Information not available 09/25/2021 Do You Reside In Or Have You Traveled To An Area Where Ebola Virus Transmission Is Active? No [email or web address] Information not available 09/25/2021 What Is The Highest Grade Or Level Of School You Have Completed Or The Highest Degree You Have Received? [id number] Information not available 12/18/2021 Swimming/diving No [email or web address] Informati on not available 09/16/2016 Have There Been Any Changes To Your Family Or Social Situation? No [email or web address] Information no t available 12/18/2021 What Is The Fluoride Status Of Your Home? Fluoridated [email or web address] Information not available 09/25/2021 Hard Of Hearing Or Deaf In One Or Both Ears? No [email or web address] Information not available 09/16/2016 Have You Recently Or Are You Planning To Travel To An Area With Zika Virus? No [email or web address] Information not available 09/25/2021 Legally Blind In One Or Both Eyes? No [email or web address] Information no t available 09/16/2016 Live Alone Or With Others? With Others Information not available 09/16/2016 Do You Have A Medical Power Of Policy Change Clerk? No [email or web address] Information not available 09/25/2021 What Was The Date Of Your Most Recent Tobacco Screening? 11/26/2020 Information not available 11/26/2020 Do You Use Protection During Sex? No [email or web address] Information not available 09/25/2021 Do You Use Protection Against STDs? No [email or web address] Information not available 09/25/2021 What Is Your Relationship Status? [email or web address] Information not available 10/30/2016 Seat Belts Used Routinely Yes [email or web address] Information not available 09/16/2016 Are You Sexually Active? Yes [email or web address] Information not available 09/25/2021 Smoke Alarm In Home Yes Information not available 09/16/2016 Do You Have Smoke And Carbon Monoxide Detectors In Your Home? Yes [email or web address] Information not available 12/18/2021 At What Age Did You Start Smoking Tobacco? 14 [email or web address] Information not available 09/25/2021 Are You Passively Exposed To Smoke? Yes [email or web address] Information no t available 09/16/2016 How Much Tobacco Do You Smoke? 1 PPD [email or web address] Information not available 09/29/2019 General Stress Level Low [email or web address] Information not available 09/16/2016 Do You Use Sunscreen Routinely? Yes [email or web address] Information not available 09/16/2016 Has Tobacco Cessation Counseling Been Provided? Yes [email or web address] Information not available 09/16/2016 On What Date Was Tobacco Cessation Counseling Provided? 11/26/2020 Information not available 11/26/2020 How Many Years Have You Smoked Tobacco? 20 Information not available 01/18/2019 Do You Have Difficulty Walking Or Climbing Stairs? No [email or web address] Information not available 09/16/2016 What Contraceptive Method Was Reported At Start Of This Visit? None [email or web address] Information not available 09/25/2021 What Contraceptive Method Was Reported At End Of This Visit? None [email or web address] Information not available 09/25/2021 Do You Want To Talk About Contraception Or Prevention During Your Visit Today? No - I Do Not Want To Talk About Contraception Today Because I Am Here For Something Else [email or web address] Information not available 09/25/2021 Do You Have Any Future Plans To Get ? No, I Don't Want To Become Information not available 09/25/2021 What Is Your Reason For Having No Contraceptive Method At Start Of This Visit? Other [email or web address] Information not available 09/25/2021 Sex: Female Functional Status Question Answer Note LastModified by Organizat ion Details LastModified Time Do you or have you ever used smokeless tobacco? Former smokeless tobacco user Information not available 01/18/2019 Are you currently employed? No [email or web address] Information not available 09/16/2016 Do you have transportation difficulties? No [email or web address] Information not available 12/02/2021 Are you able to care for yourself? Yes [email or web address] Information n ot available 09/16/2016 Do you have difficulty dressing or bathing? No [email or web address] Information not available 09/16/2016 Do you or have you ever used e-cigarettes or vape? Never used electronic cigarettes Information not available 01/18/2019 What is your exercise level? Occasional [email or web address] Information not available 09/16/2016 Do you use any illicit or recreational drugs? No [email or web address] Information not available 09/25/2021 Do you or have you ever used any other forms of tobacco or nicotine? No [email or web address] Information not available 09/25/2021 What is your level of alcohol consumption? None [email or web address] Information not available 09/16/2016 What is your status? Not [email or web address] Information no t available 09/25/2021 Are you able to walk? YESWOREST [email or web address] Information not available 09/16/2016 Do you have difficulty doing errands alone? No Information not available 09/16/2016 Mental Status Question Answer Note LastModified by Organizat ion Details LastModified Time Do you feel stressed (tense, restless, nervous, or anxious, or unable to sleep at night)? [id number] [email or web address] Information not available 12/18/2021 Do you have difficulty concentrating, remembering or making decisions? No [email or web address] Information no t available 09/16/2016 Family History Relationship Description Onset Age of this Age Resolved Age Notes LastModified by Organization Details LastModified Time Mother Blindness of one eye [email or web address] Not available 2016 15:18:12 Mother Type 2 diabetes mellitus [email or web address] Not available 2016 15:18:34 Mother Kidney disease Not available 2016 15:19:12 Mother Myocardial infarction [email or web address] Not available 09/16 15:19:26 Father Type 2 diabetes mellitus [email or web address] Not available 2016 15:18:34 Father Myocardial infarction Not available 09/16 15:19:26 Sister Fibromyalgia [email or web address] Not avai lable 09/16/2016 15:18:53 Sister Osteoarthrit is Not available 2016 15:20:30 Medical History Condition Response Pancreatitis N Coronary Artery Disease N Other N Gout N Atrial Fibrillation N congenital heart disease N Blood Diseases N Kidney Stones N Hyperthyroidism N Blood Transfusion N Rheumatoid arthritis N Erectile Dysfunction N amputation N Colonoscopy N Skin Lesions N COPD Y Depression N Pneumonia Y Incontinence N Murmur N Edema N Alzheimer's Disease N Migraine Headaches N Tobacco Abuse Y Anxiety Disorder N Hemorrhoids N Muscle, Joint, or Bone Problems N Obesity N Vision or Eye Problems N Arthritis N Restless Leg Syndrome N Polyps N Infertility N Mental Disorder N Carpal Tunnel N Acid Reflux (GERD) Y Cancer N Varicosities N Stroke N Tendonitis N Crohn's Disease N Hypercholesterolemia N Skin Cancer N Headaches N Fibromyalgia N Anal Fissure N Irritable Bowel Syndrome N Kidney Disease N Heart Problems N Ear or Hearing Problems N Hospitalizations Y Gallstones N Kidney or Bladder Problems N Goiter N Acne N Skin Problems N Eating Disorder N Plata's Esophagus N Hypertriglyceridemia N MRSA exposure N Constipation N Embolism N Vitamin B12 Deficiency N Deviated Septum N Tuberculosis N AIDS/HIV N Myocardial Infarction N Asthma N Mitral Valve Disorders N Vertigo N Hepatitis N Thyroid Cancer N Neuropathy N Pulmonary Embolism N History of DVT N Herniated Disc N Chronic Ear Infections N Chicken Pox Y Autism Spectrum Disorder (ASD) N Von Willebrands Disease N Thrombophilias N Breast Cancer N Hernia N Plantar Fasciitis N Hospital Admission Other Than N Lung Disease N Hypothyroidism N Defects or Inherited Disease N Developmental or Behavioral Disorders N Breast Problem N Difficulty Swallowing N Ovarian Cyst N Anesthesia Complications N Testosterone Deficiency N Meniere's disease N Head Injury/Concussion N Interstitial Cystitis N Congenital Anomalies N Hypoglycemia N Blood clot N Vitamin D Deficiency N Cellulitis N Endometriosis N Fracture N Bladder or Kidney Problems N Liver Disease N Panic Disorder N Schizophrenia N Concussion N Spina Bifida N Allergies/Hayfever N Osteoarthritis N Parkinson's Disease N Disc Protrusion N STI N Esophagitis N Angina N Thyroid Problems N GI Problems N ADD/ADHD N Anemia N Multiple Sclerosis N Abnormal PAP N Lumbago N Mental Illness N Psychiatric Illness N Diabetes Y Ovarian Cancer N Bedwetting N Degenerative Disc Disease N Seizures/Epilepsy N Congestive Heart Failure (CHF) N Hyperlipidemia Y Syncope N Insomnia N Eczema N Abuse/Domestic Violence N Attention Deficient Disorder N Diverticulitis N Dementia N Ulcerative colitis N Cerebrovascular Disease N Depression N Guillain-[place] N Sleep Apnea N Aneurysm N Bronchitis N Heart Disease N Suicidal Ideation N Pre-Eclampsia N Hypertension Y Osteoporosis N Gynecological History Statement/Question Response Date of Last Mammogram 12/18/2020 Date of Last LDCT 12-26-21 Date of LMP On BCP's at Conception? N Post Menopausal Bleeding Y STIs/STDs N Colposcopy 12/02/2021 Current Control Method Tubal Ligat ion Age at First Child 14 Last Annual Exam/Provider 2019 Last Lipids 09-13-2021 If Post Menopausal, Age at Menopause 51 Date of Last Colonoscopy Sexually Active? Y Menses Monthly N Date of Last Pap Smear 04/09/2020 Sexual Problems? N LMP Unknown Desired Control Method Sterilizati on Hormone Replacement Therapy N Obstetrics History GPAL:G 2 P 2 0 0 2 Type Value Full Term 2 Living 2 Total 2 Immunizations Vaccine Type Date Status Note Provider Nam e and Address Organization Details Recorded Time Influenza, high-dose, quadrivalent, PF 0 completed Andrea Barajaspaxton, HEALTH CARE ATTORNEY [address], [place], [address], [place] [facility] 02/14/2020 15:06:06 influenza, unspecified formulation 4 completed Not Available [facility] 06/18/2019 02:21:20 influenza, unspecified formulation 4 completed Not Available [facility] 06/18/2019 02:21:20 Influenza, split virus, quadrivalent, preservative 7 completed Not Available [facility] 06/04/2019 03:54:37 Influenza, split virus, quadrivalent, preservative 1 completed Timo Knapp null, [place] - [facility] 03/13/2021 10:03:07 Tdap 8 completed Not Available [facility] 06/04/2019 03:54:59 Hep A, adult 8 completed Not Available [facility] 06/04/2019 03:55:12 Influenza, split virus, quadrivalent, PF 8 completed Not Available [facility] 06/04/2019 03:55:22 SARS-COV-2 (COVID-19) vaccine, UNSPECIFIED 1 completed Gloria Kumar [place], [place] [facility] 08/27/2020 08:54:32 SARS-COV-2 (COVID-19) vaccine, UNSPECIFIED 1 completed Gloria [place] [facility] 08/27/2020 08:54:40 COVID-19, mRNA, LNP-S, PF, 100 mcg/0.5mL dose or 50 mcg/0.25mL dose 1 completed Timo Knapp null, [place] - [facility] 02/27/2021 08:17:20 zoster recombinant 9 completed Not Available [facility] 06/04/2019 03:55:40 pneumococcal polysaccharide PPV23 9 completed Not Available [facility] 06/04/2019 03:55:37 Hep A, adult 9 completed Not Available [facility] 06/04/2019 03:55:40 Influenza, split virus, quadrivalent, PF 9 completed Not Available [facility] 06/04/2019 03:56:04 Past Encounters Encounter ID Performer Location Encounter Start Date Encounter Closed Date Diagnosis/Indication Diagnosis SNOMED-CT Code Diagnosis ICD10 Code Diagnosis Note [id number] SHARDA Carpenter [place] [address] [address] [place] EDWARDSGRACEAngela [facility] [place] [address] 06/03/2016 12:19:27 06/03/2016 13:33:18 Screening mammography 85764116 Z12.31 Abscess 007974980 L02.91 Essential hypertension 80366152 I10 Diabetes mellitus 828320 09 E11.9 [id number] SHARDA Carpenter [place] [address] [address] [place] EDWARDSSAMIA [facility] [place] [address] 07/04/2016 10:40:44 07/04/2016 11:37:42 Upper respiratory infection 73351365 J06.9 Acute bronchitis 8343545 2 J20.9 Bronchitis 14550555 J40 Cough 96066091 R05 [id number] SHARDA Carpenter [place] [address] [place] [address] 07/22/2016 10:56:16 07/22/2016 12:00:19 Cough 33521682 R05 Bronchitis 99571082 J40 Acute bronchitis 9534583 2 J20.9 Trying to give up smoking 731134635 Z72.0 [id number] SHARDA Carpenter [place] [address] [address] [place] DIANA [facility] [place] [address] 08/15/2016 09:20:34 08/15/2016 11:00:35 Essential hypertension 25349101 I10 Chronic ob structive pulmonary disease 21512192 J44.9 Diabetes mellitus 097700 09 E11.9 Type 2 munira betes mellitus 51433167 E11.9 Tobacco user 454589649 Z 72.0 [id number] SHARDA Bates [place] [address] [place] [address] 09/16/2016 14:49:34 09/16/2016 16:19:00 Acute sinusitis 24844808 J01.90 [id number] Paola Hyde APRN [place] [address] [place] [address] 10/30/2016 13:47:08 10/30/2016 16:08:25 Body mass index 30+ - obesity 897898402 Z68.39 Pain of joint 74390188 M 25.50 [id number] Paola Mary EllenTENN [place] [address] [place] [address] 12/18/2016 09:04:39 12/18/2016 09:51:19 Long-term drug therapy 562784890 Z79.899 Wasp sting 068709057 T63 .461A Pain of joint 69783805 M 25.50 [id number] Paola Hyde HEALTH CARE ATTORNEY [place] [address] [place] [address] 02/02/2017 09:35:32 02/02/2017 10:43:04 Type 2 diabetes mellitus 81890264 E11.9 Diabetes mellitus 086102 09 E11.9 Renewal of prescription 235764624 Z76.0 Abscess 772480187 L02.91 [id number] Paola Hyde APRN [place] [address] [place] [address] 02/19/2017 15:02:47 02/19/2017 16:30:34 Nicotine dependence 90734987 F17.200 Administra tion of influenza vaccine 83605824 Z23 [id number] Paola Hyde APRN [place] [address] [place] [address] 05/28/2017 12:52:54 05/28/2017 13:56:18 Pain of joint 93790536 M25.50 Renewal of prescription 549276233 Z76.0 Screening mammography 24 254590 Z12.31 Diabetes mellitus 419475 09 E11.9 [id number] Paola HydeTENN [place] [address] [place] [address] 07/07/2017 13:43:26 07/07/2017 14:48:04 Acute exacerbation of chronic obstructive pulmonary disease 007146271 J44.1 Candidiasis of vagina 72 904803 B37.3 [id number] Paolaana Hyde SHARDA [place] [address] [address] [place] [facility] [place] [address] 07/16/2017 10:05:38 07/16/2017 12:37:12 Acute exacerbation of chronic obstructive pulmonary disease 758211817 J44.1 Pneumonia 762277471 J18. 9 rtc in 7 to 10 days for follow up cxr [id number] Paola HydeTENN [place] [address] [place] [address] 08/27/2017 08:34:53 08/27/2017 10:05:42 Renewal of prescription 208696434 Z76.0 Essential hypertension 74699721 I10 Type 2 munira betes mellitus 55050061 E11.37X1 [id number] Paola Mary EllenTENN [place] [address] [place] [address] 09/03/2017 08:25:23 09/03/2017 09:54:08 Adult health examination 948377073 Z00.00 Depression screening 171 395530 Z13.89 Examinatio n of blood pressure 255709406 Z01.30 Diet education 32869843 Z71.3 Counseling 872490142 Z71 .82 Exercise counseling . Patient encouraged to exercise 30 minutes 5 days a week. Gynecologi c examination 25443381 Z01.419 Diabetes mellitus 311360 09 E11.9 Body mass index 30+ - obesity 306866893 Z68.39 Administra tion of diphtheria, pertussis, and tetanus vaccine 061698079 Z23 Active or passive immunization 881386183 Z23 [id number] Paola Hyde APRN [place] [address] [address] Arm[place] DIANA [facility] [place] [address] 10/20/2017 13:07:14 10/20/2017 13:58:05 Acute bronchitis 16418665 J20.9 Cough 54540946 R05 [id number] [facility] [address] [place] [address] 10/26/2017 14:37:16 10/26/2017 15:17:01 Upper respiratory infection 56408045 J06.9 discussed that this is likely viral and will need to run its course; given copd history will tx with augmentin (completes a course of levaquin) and a steroid course. [id number] SHARDA Carpenter [facility] [address] [place] [address] 11/26/2017 10:21:57 11/26/2017 13:13:20 History of surgical procedure on mouth 077602699 Z98.890 keep scheduled appointmen t with surgeon for follow up [id number] SHARDA Carpenter [place] [address] [place] [address] 02/08/2018 08:01:56 02/08/2018 09:53:45 Renewal of prescription 677671885 Z76.0 Essential hypertension 73602519 I10 Diabetes mellitus 806471 09 E11.9 Type 2 munira betes mellitus without complication 010748135 E11.9 Eruption 082861671 R21 Anxiety 88680820 F41.9 Active or passive immunization 451869396 Z23 Nicotine dependence 5629 4008 F17.200 Pain of joint 98856614 M 25.50 [id number] SHARDA Carpenter [facility] [place] [address] 02/18/2018 09:09:57 02/18/2018 11:17:23 Nausea 511515332 R11.0 discontinu e zoloft, bland diet, rtc in one week to consider new medication for anxiety. rtc sooner if symptoms worsen. [id number] SHARDA Carpenter [place] [address] [address] [place] [address] 04/06/2018 11:22:42 04/06/2018 12:24:21 Anxiety 70599779 F41.9 [id number] Paola Hyde APRN [place] [address] [place] [address] 06/03/2018 12:48:10 06/03/2018 13:42:22 Tobacco dependence syndrome 83660936 F17.200 Osteoarthritis 200166074 M19.90 Vitamin D deficiency 347 87480 E55.9 Disorder o f vitamin B12 493445536 E53.8 Acute bronchitis 7839055 2 J20.9 [id number] Paola Hyde APRN [place] [address] [address] den[address] [place] DIANA [facility] [place] [address] 06/17/2018 09:43:02 06/17/2018 10:40:32 Active or passive immunization 131200155 Z23 Tobacco de pendence syndrome 31530138 F17.359 [id number] Paola Hyde APRN [place] [address] [address] den[address] Arm[place] DIANA [facility] [place] [address] 08/09/2018 08:44:18 08/09/2018 09:59:01 Type 2 diabetes mellitus 30787094 E11.37X1 Type 2 munira betes mellitus without complication 935376620 E11.9 Pain of joint 76474415 M 25.50 [id number] Paola Hyde APRN [place] [address] [address] [address] 09/03/2018 09:21:00 09/03/2018 10:32:58 Active or passive immunization 212721999 Z23 Type 2 munira betes mellitus 79039227 E11.37X1 Vitamin D deficiency 347 98788 E55.9 Neuropathy 989185426 G62 .9 [id number] Paola Hyde APRN [place] [address] [address] [facility] [place] [address] 12/24/2018 08:21:01 12/24/2018 09:44:40 Pain in left arm 974264601 M79.602 Type 2 munira betes mellitus 88689966 E11.37X1 Acute exac erbation of chronic obstructive pulmonary disease 052524037 J44.1 [id number] SHARDA Carpenter [facility] [address] [place] [address] 01/27/2019 14:10:48 01/27/2019 15:17:24 Disorder of vitamin B12 473793561 E53.8 Renewal of prescription 992744051 Z76.0 Diabetes mellitus 452242 09 E11.9 Pain of [facility] 78696390 M25.519 Long-term drug therapy 966206912 Z79.899 Shoulder joint pain 2679 37226 M25.519 Pain in left arm 4614776 00 M79.566 [id number] SHARDA Carpentergraceangela [place] [address] [address] den[address] Arm[place] DIANA [facility] [place] [address] 02/11/2019 10:05:35 02/11/2019 12:42:20 Osteoarthritis 139462979 M19.90 Administra tion of influenza vaccine 30213858 Z23 Pain of [place] region 05277348 M25.076 [id number] SHARDA Carpentergraceangela [place] [address] [place] [address] 03/31/2019 09:00:10 03/31/2019 10:23:19 Type 2 diabetes mellitus 83305776 E11.37X1 Renewal of prescription 703399001 Z76.0 Pain of [facility] 12163248 M25.519 Disorder o f vitamin B12 038908746 E53.8 Neuropathy 581885245 G62 .9 [id number] SHARDA Carpentermiguelangela [place] [address] [address] denn[address] Arm[place] DIANA [facility] [place] [address] 05/09/2019 14:33:37 05/09/2019 15:41:47 Bronchitis 49459877 J40 rtc as needed [id number] Paola Hyde APRN Nellyangela [place] [address] [address] [place] D[place] [facility] [place] [address] 07/01/2019 08:49:24 07/01/2019 10:21:21 Type 2 diabetes mellitus 97514837 E11.37X1 Sinusitis 78755990 J32.9 Bronchitis 03518427 J40 rtc as needed Neuropathy 769641151 G62 .9 Renewal of prescription 514734476 Z76.0 Cough 55722515 R05 [id number] SHARDA Carpenter [facility] [address] [place] [address] 09/29/2019 08:45:47 09/29/2019 09:20:29 Type 2 diabetes mellitus 15356365 E11.37X1 Renewal of prescription 852587765 Z76.0 Osteoarthritis 349213764 M19.90 Nausea 199330970 R11.0 discontinu e zoloft, bland diet, rtc in one week to consider new medication for anxiety. rtc sooner if symptoms worsen. Neuropathy 223552794 G62 .9 [id number] SHARDA Carpenter [facility] [address] [place] [address] 01/03/2020 08:05:23 01/03/2020 09:16:59 Type 2 diabetes mellitus 06109868 E11.37X1 Body mass index 30+ - obesity 431159689 Z68.39 Renewal of prescription 951834901 Z76.0 Candidiasis of vagina 72 195283 B37.3 Long-term drug therapy 923318712 Z79.899 Neuropathy 284199513 G62 .9 [id number] SHARDA Bates [facility] [address] [place] [address] 02/14/2020 14:42:27 02/14/2020 14:57:25 Administration of influenza vaccine 33032552 Z23 [id number] SHARDA Carpenter [facility] [address] [place] [address] 04/09/2020 08:30:50 04/09/2020 10:05:41 General examination of patient 807801192 Z00.00 Screening for cardiovascular system disease 875586789 Z13.6 Screening mammography 24 865825 Z12.31 Exercises education, guidance, and counseling 279262898 Z71.82 Dietary ma nagement surveillance 563079619 Z71.3 Type 2 munira betes mellitus 77476815 E11.37X1 Hyperlipidemia 62414368 E78.5 Renewal of prescription 704803270 Z76.0 Cough [id number] R05 [id number] SHARDA Carpenter [place] [address] [address] Armando DIANA [facility] [place] [address] 08/27/2020 08:33:56 08/27/2020 09:30:32 Type 2 diabetes mellitus 70062909 E11.37X1 will call with results Essential hypertension 99505609 I10 controlled with medication s, will call with results Hyperlipidemia 98823131 E78.5 controlled with medication , will call with results Osteoarthritis 662552246 M19.90 controlled with medication , will call with results Chronic ob structive pulmonary disease 75586172 J44.9 controlled with medicaton Gastroesop hageal reflux disease 269299683 K21.9 controlled with medication Arthritis 7608264 M19.90 controlled with medication [id number] SHARDA Carpenter [place] [address] [address] Armando NELLYAngela [facility] [place] [address] 09/28/2020 08:42:12 09/28/2020 09:21:40 Osteoarthritis 942993643 M19.90 controlled with medication Type 2 munira betes mellitus 30568371 E11.37X1 stable [id number] SHARDA Carpenter [place] [address] [address] Armando DIANA [facility] [place] [address] 11/26/2020 08:03:44 11/26/2020 09:06:48 Type 2 diabetes mellitus 92809267 E11.37X1 stable Nausea 559622555 R11.0 requests refills for episodes of nausea Renewal of prescription 091659763 Z76.0 requests refills Hyperlipidemia 39244427 E78.5 controlled with medication , will call with results Essential hypertension 77169254 I10 controlled with medication s, will call with results Gastroesop hageal reflux disease 752342150 K21.9 controlled with medication Chronic ob structive pulmonary disease 01474688 J44.9 controlled with medicaton Nicotine dependence 5629 4008 F17.200 discussed importance of not smoking Hepatitis C screening 41 4767391 Z11.59 screening Screening mammography 24 842454 Z12.31 screening Screening for malignant neoplasm of colon 854710734 Z12.11 declined workup today. [id number] Paola Hyde APRN Ethelsamia [place] [address] [address] Armando DIANA [facility] [place] [address] 12/03/2020 08:41:57 12/03/2020 09:27:36 Acute bronchitis 02483829 J20.9 Cough 81306035 R05 do not take gabapentin while on promethazi ne DM [id number] Paola Hyde APRN Nellyangela [place] [address] [address] [address] 01/18/2021 15:42:39 01/18/2021 16:57:54 Chronic obstructive pulmonary disease 56923621 J44.9 Acute exac erbation of chronic obstructive pulmonary disease 352878660 J44.1 [id number] Paola Hyde APRN Nellyangela [place] [address] [address] Armando DIANA [facility] [place] [address] 01/28/2021 08:55:15 01/28/2021 11:47:26 Acute bronchitis 89277963 J20.9 declined xray today, seek urgent care if symptoms worsen Osteoarthritis 383420653 M19.90 controlled with medication [id number] SHARDA Reed [place] [address] [address] Armando DIANA [facility] [place] [address] 02/27/2021 07:44:06 02/27/2021 08:38:17 Type 2 diabetes mellitus 64444526 E11.9 chronic controlled Body mass index 30+ - obesity 428844365 Z68.33 Essential hypertension 03333559 I10 chronic controlled Vitamin D deficiency 347 18827 E55.9 chronic controlled Cobalamin deficiency 190 376870 E53.8 chronic controlled Gastroesop hageal reflux disease 213569983 K21.9 chronic controlled [id number] Evangelina Nguyen APRN Ethelsamia [place] [address] [address] Armando NELLYAngela [facility] [place] [address] 03/01/2021 08:40:39 03/01/2021 10:03:09 Viral screening 263217589 Z11.52 Acute bronchitis 9948538 2 J20.9 [id number] Evangelina Nguyen APRN Kandicealejandra [facility] [address] [place] [address] 03/13/2021 09:44:46 03/13/2021 10:03:27 Administration of influenza vaccine 56231262 Z23 Body mass index 30+ - obesity 749865737 Z68.33 Type 2 munira betes mellitus 43701113 E11.9 chronic uncontroll ed [id number] Evangelina Nguyen APRN Nellyangela [facility] [address] [place], [place] [address] 06/17/2021 09:49:08 06/17/2021 10:17:14 Type 2 diabetes mellitus 71057928 E11.9 chronic uncontroll ed Essential hypertension 09672244 I10 chronic controlled Hyperlipidemia 12144135 E78.5 chronic controlled [id number] SHARDA Reedgraceangela [facility] [address] Armando DIANA [facility] [place] [address] 09/13/2021 08:28:03 09/13/2021 09:43:19 Type 2 diabetes mellitus 16148890 E11.9 chronic uncontroll ed Essential hypertension 20993792 I10 chronic controlled Gastroesop hageal reflux disease 896188718 K21.9 chronic controlled Hyperlipidemia 84363258 E78.5 chronic controlled Cobalamin deficiency 190 659545 E53.8 chronic controlled Chronic back pain 855347 002 M54.9 chronic, worsening at times, panchito reviewed appropriat e Postmenopa usal bleeding 41509021 N95.0 been going on for about a year, also reports capps with intercours e [id number] SHARDA Enriquez [facility] [address] Armando LEARYMiguelAngela [facility] [place] [address] 09/25/2021 15:18:40 09/25/2021 16:35:21 Postmenopausal bleeding 56228850 N95.0 Essential hypertension 16594174 I10 Type 2 munira betes mellitus 79033052 E11.9 Body mass index 30+ - obesity 377573636 Z68.33 Postcoital bleeding 4888 0000 N93.0 [id number] SHARDA Enriquez [facility] [address] [place] [address] [place] [address] 10/21/2021 10:15:00 10/21/2021 11:51:30 Postmenopausal bleeding 42616003 N95.0 Body mass index 30+ - obesity 261188299 Z68.33 Essential hypertension 56906508 I10 Type 2 munira betes mellitus 65424419 E11.9 [id number] SHARDA Enriquez [facility] [address] [place] [address] [place] [address] 12/02/2021 10:38:57 12/02/2021 11:40:06 Abnormal cytology findings 890876748 R89.6 Screening for malignant neoplasm of cervix 129165376 Z12.4 [id number] SHARDA Enriquez [facility] [address] [place] [address] 12/18/2021 15:46:58 12/18/2021 17:05:35 Routine gynecologic examination done 0196207820 9101 Z01.419 Examinatio n of blood pressure 336751715 Z01.30 BP goal < 140/90 Depression screening 171 277805 Z13.31 Diet education 45684830 Z71.3 7376-1629 calorie diet recommende d with an emphasis on reducing sugar and refined carbohydra carolyn, avoiding highly processed foods and decreasing saturated fats. She declines dietary consult. Counseling 542499132 Z71 .82 Exercise counsellin dimitris. Patient encouraged to exercise 30 minutes 5 days a week. Screening for malignant neoplasm of breast 348789265 Z12.31 Scheduled for 12-23-21 Screening for malignant neoplasm of colon 192485103 Z12.11 declines Screening for malignant neoplasm of respiratory tract 058812261 Z12.2 Body mass index 30+ - obesity 424997148 Z68.32 Cigarette smoker 2959788 7 F17.210 Tobacco use discourage d. Techniques for quitting smoking discussed including pharmaceut icals (Nicotine patches, gum, Zyban, and Chantix) and behavioral therapy (Rob Escobedo). Immediate and snf cardiovasc ular and respirator y benefits of smoking cessation discussed. Lung cancer risk reduction also discussed. Chronic ob structive pulmonary disease 36033697 J44.9 Essential hypertension 86745986 I10 Type 2 munira betes mellitus 49235786 E11.65 History of tubal ligation 654004540 Z98.51 Health Concerns Section Related Observation LastModified by Organization Detai ls LastModified Time None Recorded Concern Status LastModified by Organization Details LastModified Time None Recorded Advance Directives Directive N: Payers Insurance Date Sequence Insurance Name Policy Number Policy Hutson Covered Member ID Hutson Member ID Guarantor Name 02/18/2017 1 PASSPORT BY [employer]. (MEDICAID REPLACEMENT - HMO) Teresa Rivera [id number] Teresa Rivera 01/25/2022 1 [place] [id number] Teresa Rivera [id number] Teresa Rivera 01/25/2022 [place] Teresa Rivera [id number] Teresa Rivera 07/15/2016 1 UNSPECIFIED REMIT PAYOR Teresa Rivera 06/03/2018 1 PASSPORT BY [employer] (MEDICAID REPLACEMENT - HMO) MEDICAID Teresa Rivera [id number] Teresa Rivera Notes Date Note Type Note Provider Name and Address Organization Details Recorded Time 09/13/2021 text/html Diabetes F/URepo rted bypatient.Review finger sticks:Doesn't check Labs:last A1C result: 7.1 Context:not missing doses of medications; no side effects from medications Evangelina Nguyen, SHARDA [address], [place], [address], [facility] - [facility] 09/13/2021 10:53:24 09/25/2021 text/html Post Menopausal BleedingReported bypatient.Onset/Timing :past 3-5 cycles Duration:7-10 days/month Quality:light;spotting Context:occurs after intercourse; current contraception: (Tubal); postmenopausal Associated Symptoms:no dysmenorrhea; no pelvic pain; no abdominal pain; no dyspareunia; no fatigue; no dizziness; no iron/anemia supplements; no shortness of breath; no CP/palpitations; no bloating; no change in bowel function; no changes in urinary function; no PMS; no vaginal discharge; no vaginal itching/irritation Teresa is here with c/o intermittent bleeding x 1 year sometimes following SI and sometimes following heavy lifting. Last episode of spotting was the end of August after lifting her grandchild. She denies any pain. No history of abnormal pap smears. Wilma Ocampo APRN [address], [place], [address], [place] - [facility] 09/26/2021 19:54:45 10/21/2021 text/html Teresa is here t o discuss ultrasound done to follow up on PMB. Wilma Ocampo APRN [address], [place], [address], [facility] - [facility] 10/21/2021 11:09:36 12/02/2021 text/html Patient in for colposcopy/biopsy. Patient denies any other symptoms. Wilma Ocampo APRN [address], [place], [address], [facility] - [facility] 12/02/2021 12:55:37 12/18/2021 text/html Annual - MOBRepo rted bypatient.History:Last annual exam: 2019; no gynecologic complaints; no change in interval history Current Contraception:Postmeno pausal (no bleeding since 2 days after her last visit-she has not started Premarin cream yet) Preventive measures:Encourage self breast examination; Encourage regular exercise; Encourage no tobacco use; Followed with Q3 year pap smear and high risk HPV typing;Needs to schedule [facility]); Up to date on colonoscopy screening; All immunization are current The patient is a 61 year old naturally postmenopausal White female who presents as a/an established patient for annual gynecologic wellness exam. She denies gynecologic concerns. See above notations for significant gynecologic history of present illness as reported per patient during visit intake. Wilma Ocampo APRN [address], [place], [address], [place] - [facility] 12/19/2021 19:22:15 OBGyn Episode No OBEpisode recorded.
--- OUTSIDE RECORDS SUMMARY | 2024-11-15 13:59 | XMS_ITS | Encounter Summary ---
Author Organization Healthcare Address [address] [place] [address] Care Team Providers Care Aircraft Design Engineer Name Role Phone Laurie Gutierrez MD Primary Care Provider [phone] Joshua Martínez MD Unavailable Reason for Visit * Reason Comments Distress Screen Follow-up Encounter Details Date Type Department Care Team (Late st Contact Info) Description 11/08/2024 Social Work Psych Oncology [address] [place] [address] Mariah Rowley 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 Tobacco Use Types [...] drink first t laurie in the morning (EYE-PTA) to steady your nerves or to get rid of a hangover? 0 10/27/2024 CAGE Questionnaire Score 0 025 Utilities Answer Date Recorded In the past 12 months has th e [employer], gas, oil, or water company threatened to [...] of Assessment Author 0 11/08/2024 11:13 AM JULIAT Kasandra Riley * Question Answer Date of [...] on one occasion? Never 11/08/2024 11:13 AM JULIAT Kasandra Riley documented as of this encounter Miscellaneous Notes * Progress Notes - Mariah Rowley - 11/08/2024 2:47 PM EDT Encounter Type: Distress Follow Up - In Person Disease Status: Established Patient Clinic Location: [facility] Disease Type: Lung & Bronchus Services Provided: Gift / Gas Card Gift Card Type: ACS Transportation Talat Gift Card Amount: 50 Education Provided: Lodging Intervention Level: 2 Units (1 unit = 15 minutes): 2 Narrative: SCIENCE TUTOR met with pt and sister prior to appt to follow up on DT screen. SCIENCE TUTOR introduced self and non urgent nature of visit. Pt stated she is doing okay but both asked about upcoming radiation treatments and whether or not those would be extended. SCIENCE TUTOR explained that pt's radiation will not be extended but that SCIENCE TUTOR had spoken to pt's care team and pt is due to return on 11/29-12/01 for more infusions. Pt asked about staying at [facility] and SCIENCE TUTOR encouraged pt to reach out to [facility] to complete a self referral which pt agreeable to doing. Pt also asked about possible fuel and utility assistance.SCIENCE TUTOR explained [address] and stated that pt would just need to bring in the bills she is wantingpaid. SCIENCE TUTOR also explained that SCIENCE TUTOR could bring over some ACS cards to pt in infusion. SCIENCE TUTOR encouragedboth to reach out should any further needs arise or should they have issues when making a self referral to the [facility]. Both voiced understanding and appreciation for the assistance. No further needs identified. SCIENCE TUTOR to remain available for any ongoing needs or support. SCIENCE TUTOR met with pt while in infusion to provide pt with 50.00 in ACS cards. NAVEED Ashley, SCIENCE TUTOR [facility] Psych-Oncology Services documented in this encounter Plan of Treatment Upcoming Encounters Date Type Department Care Team (Late st Contact Info) Description 11/29/2024 10:30 AM EDT Clinical Support [facility] [address] [facility]nd [place] [address] 11/29/2024 11:00 AM EDT Office Visit [facility] [address] [facility] [place] [address] Satnam Colvin MD [address] [facility] [address] [place] [address] 11/29/2024 12:30 PM EDT Appointment [facility] [address] [place] [address] 11/30/2024 1:30 PM EDT Appointment [facility] [address] [place] [address] 12/01/2024 2:00 PM EDT Appointment [facility] [address] [place] [address] 12/06/2024 11:40 AM EDT Appointment [facility] Radiation [address] [facility]. [id number] [place] [address] Haven Blum, IT SYSTEMS ADMINISTRATOR [address] [facility] [address] [place] [address] 01/19/2025 9:30 AM EDT Appointment [facility] S Radiology [address] [place] [address] 01/19/2025 10:45 AM EDT Office Visit [facility] [address], [address] [place] [address] Abhilash Bangura MD [address] [place] [address] 03/08/2025 1:00 PM EDT Office Visit [facility] [place] 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 Panic 10/26/2024 10/31/2024 Assessment Noted Time PHQ-9 Depression Total Score: 0 09/01/19 25 3:26 PM EDT A fall risk assessment has been complete d for the patient 11/08/2024 2:02 PM EDT A Body Mass Index follow-up plan has been documented for the patient 11/08/2024 5:14 PM EDT documented as of this encounter Care Teams Aircraft Design Engineer Relationship Specialty Start Date End Date Laurie Gutierrez MD [address] [place] [address] PCP - General 12/09/23 Joshua Martínez MD [address] [place], [place] [id number] [place] [address] Consulting Physician Radiation Oncology 09/19/24 documented as of this encounter
--- OUTSIDE RECORDS SUMMARY | 2024-11-15 13:59 | XMS_ITS | Data Portability ---
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 She is currently active smoker. Diagnosed with COPD around 2016. No oxygen use. No PAP use. She [...] spirometry. Moderate reduced diffusion capacity DLCO 41%. August 2023 PET scan 1. Dominant right [...] Continue Combivent inhaler. Continue Symbicort 160 mg Start Singulair 10 mg daily. She has hoarseness, I advised referral to ENT for evaluation however she declined. June 2023 Resting saturation 93% on room air. Check 6 minute walk test. Patient quit smoking September 2023. Patient on portable oxygen. RTC 4 months [email or web address] Not available 01/25/2024 13:26:40 07/19/2024 07/19/2024 63-year-old female smoked 45 pack years. She is currently active smoker. Diagnosed with COPD around 2016. No oxygen use. No PAP use. She [...] contrast in 6 weeks. RTC 6 weeks [email or web address] Not available 07/19/2024 17:01:42 Plan of Treatment Reminders Order Date Submit Date Provider Last Modified By Organization Details Last Modified Time Details Appointments None recorded. Lab CMP, serum or plasma 2024 025 [email or web address] [facility], [address] [place] [address] [place], [address], 5 07:48:27 vitamin B12 + folate, serum or blood 2023 024 [facility], [address] [place] [address] [place], [address], 4 08:42:43 mma (methylmal onic acid), serum 2023 024 [facility], [address] [place] [address] [place], [address], 4 08:42:43 CMP, serum or plasma 2023 024 [facility], [address] [place] [address] [place], [address], 4 08:42:43 CBC w/ auto diff 2023 024 [facility], [address] [place] [address] [place], [address], 4 08:42:43 TSH + free T4, serum 2023 [facility] (Lab Registration) , [address] [place] [address] [place], [address], 4 08:42:43 vitamin D, 25-hydroxy , total, serum 2023 024 [facility] (Lab Registration) , [address] [place] [address] [place], [address], 4 12:01:45 Referral None recorded. Procedures None recorded. Surgeries None recorded. Imaging CT, chest, w/ contrast 2024 025 [facility] (Central Scheduling), [address] [place] [address] [place], [address], 5 04:19:09 CT, chest + abdomen + pelvis, w/ contrast - iv contrast only 2024 025 [facility] (Central Scheduling), [address] [place] [address] [place], [address], 5 13:32:07 PET-CT, skull base to mid-thigh scan 2023 024 [facility] (Central Scheduling), [address] [place] [address] [place], [address], 4 11:50:43 Medication Orders doxycyclin e hyclate 100 mg capsule 2024 025 [facility], [address] [place] [address], [id number], 5 17:24:09 gabapentin 600 mg tablet 2023 024 [facility], [address] [place] [address], [id number], 4 14:21:53 Combivent Respimat 20 mcg-100 mcg/actuat ion solution for inhalation 2023 024 [facility], [address] [place] [address], [id number], 4 16:26:32 Symbicort 160 mcg-4.5 mcg/actuat ion HFA aerosol inhaler 2023 024 [facility], [address] [place] [address], [id number], 4 13:46:31 Patient TargetsNo targets recorded. Patient InstructionsNo instructions recorded. Reason for Referral None Reported. Results Created Date Observation Date Name Description Value Unit Range Abnormal Flag Note LastModifiedBy Organization Detail LastModifiedTime 10/19/1910/19/2023 CBC W/ AUTO DIFF WBC 8.22 K/uL 4.5-11 .5 Not Available [facility] (Pre-Op Clinic) [address] [place] [address] [place], [address], 10/19/2023 08:46:17 10/19/19 24 10/19/2023 CBC W/ AUTO DIFF RBC 3.05 M/uL 4.0-5. 4 low Not Available [facility] (Pre[facility]Op [facility]) [address] [place] [address] [place], [address], 10/19/2023 08:46:17 10/19/19 24 10/19/2023 CBC W/ AUTO DIFF HGB 9.8 g/dL 12.0-1 5.0 low Not Available [facility] (Pre-Op Clinic) [address] [place] [address] [place], [address], 10/19/2023 08:46:17 10/19/19 24 10/19/2023 CBC W/ AUTO DIFF HCT 30.7 % 35-49 low Not Available [facility] (Pre-Op Clinic) [address] [place] [address] [place], [address], 10/19/2023 08:46:17 10/19/19 24 10/19/2023 CBC W/ AUTO DIFF MCV 100.7 fL 80.0-1 00.0 high Not Available [facility] (Pre-Op [facility]) [address] [place] [address] [place], [address], 10/19/2023 08:46:17 10/19/19 24 10/19/2023 CBC W/ AUTO DIFF MCH 32.1 pg 26.0-3 2.0 high Not Available [facility] (Pre-Op [facility]) [address] [place] [address] [place], [address], 10/19/2023 08:46:17 10/19/19 24 10/19/2023 CBC W/ AUTO DIFF MCHC 31.9 g/dL 32.0-3 6.0 low Not Available [facility] ([facility]Op [facility]) [address] [place] [address] [place], [address], 10/19/2023 08:46:17 10/19/19 24 10/19/2023 CBC W/ AUTO DIFF RDW 15.9 % 11.5-1 4.5 high Not Available [facility] ([facility]Op [facility]) [address] [place] [address] [place], [address], 10/19/2023 08:46:17 10/19/19 24 10/19/2023 CBC W/ AUTO DIFF platelet count 250 K/uL 142-42 4 Not Available [facility] (Pre[facility]Op [facility]) [address] [place] [address] [place], [address], 10/19/2023 08:46:17 10/19/19 24 10/19/2023 CBC W/ AUTO DIFF MPV 9.2 fL 6.8-10 .2 Not Available [facility] (Pre[facility]Op [facility]) [address] [place] [address] [place], [address], 10/19/2023 08:46:17 10/19/19 24 10/19/2023 CBC W/ AUTO DIFF neutrophil % 79.4 % 50-70 high Not Available [facility] (Pre[facility]Op [facility]) [address] [place] [address] [place], [address], 10/19/2023 08:46:17 10/19/19 24 10/19/2023 CBC W/ AUTO DIFF lymphocyte % 6.7 % 18.0-4 2.0 low Not Available [facility] (Pre-Op Clinic) [address] [place] [address] [place], [address], 10/19/2023 08:46:17 10/19/19 24 10/19/2023 CBC W/ AUTO DIFF monocyte % 8.0 % 2.0-11 .0 Not Available [facility] (Pre[facility]Op [facility]) [address] [place] [address] [place], [address], 10/19/2023 08:46:17 10/19/19 24 10/19/2023 CBC W/ AUTO DIFF eosinophil % 3.2 % 1.0-3. 0 high Not Available [facility] (Pre[facility]Op [facility]) [address] [place] [address] [place], [address], 10/19/2023 08:46:17 10/19/19 24 10/19/2023 CBC W/ AUTO DIFF basophil % 0.5 % 0.0-2. 0 Not Available [facility] (Pre[facility]Op [facility]) [address] [place] [address] [place], [address], 10/19/2023 08:46:17 10/19/19 24 10/19/2023 CBC W/ AUTO DIFF immature granulocytes % 2.2 % 0.0-0. 8 high Not Available [facility] (Pre[facility]Op [facility]) [address] [place] [address] [place], [address], 10/19/2023 08:46:17 10/19/19 24 10/19/2023 CBC W/ AUTO DIFF nucleated red blood cells % 0.6 % Not Available [facility] (Pre-Op Clinic) [address] [facility] [place], [address], 10/19/2023 08:46:17 10/19/19 24 10/19/2023 CBC W/ AUTO DIFF neutrophil # 6.53 K/uL Not Available [facility] (Pre[facility]Op [facility]) [address] [place] [address] [place], [address], 10/19/2023 08:46:17 10/19/19 24 10/19/2023 CBC W/ AUTO DIFF lymphocyte # 0.55 K/uL Not Available [facility] (Pre-Op Clinic) [address] [facility] [place], [address], 10/19/2023 08:46:17 10/19/19 24 10/19/2023 CBC W/ AUTO DIFF monocyte # 0.66 K/uL Not Available [facility] ([facility]Op [facility]) [address] [place] [address] [place], [address], 10/19/2023 08:46:17 10/19/19 24 10/19/2023 CBC W/ AUTO DIFF eosinophil # 0.26 K/uL Not Available [facility] (Pre-Op Clinic) [address] [place] [address] [place], [address], 10/19/2023 08:46:17 10/19/19 24 10/19/2023 CBC W/ AUTO DIFF basophil # 0.04 K/uL Not Available [facility] (Pre-Op Clinic) [address] [place] [address] [place], [address], 10/19/2023 08:46:17 10/19/19 24 10/19/2023 CBC W/ AUTO DIFF immature gramulocytes # 0.18 K/uL Not Available [facility] (Pre-Op Clinic) [address] [place] [address] [place], [address], 10/19/2023 08:46:17 10/19/19 24 10/19/2023 CBC W/ AUTO DIFF nucleated red blood cells # 0.05 k/uL Not Available [facility] (Pre[facility]Op [facility]) [address] [place] [address] [place], [address], 10/19/2023 08:46:17 10/19/19 24 10/19/2023 CBC W/ AUTO DIFF manual differential NO Not Available [facility] (Pre-Op Clinic) [address] [place] [address] [place], [address], 10/19/2023 08:46:17 10/19/19 24 10/19/2023 CBC W/ AUTO DIFF note Unles s other godinez noted testi ng per[facility]med [facility]: [facility] [address] [place] [address] Juan Antonio rivera MD Not Available [facility] (Pre[facility]Op [facility]) [address] [place] [address] [place], [address], 10/19/2023 08:46:17 10/19/19 24 10/19/2023 COMP METAB OLIC PANEL sodium 142 mmol/ L 137-14 7 Not Available [facility] (Pre-Op Clinic) [address] [place] [address] [place], [address], 10/19/2023 08:47:22 10/19/19 24 10/19/2023 COMP METAB OLIC PANEL potassium 4.1 mmol/ L 3.5-5. 1 Not Available [facility] (Pre-Op Clinic) [address] [place] [address] [place], [address], 10/19/2023 08:47:22 10/19/19 24 10/19/2023 COMP METAB OLIC PANEL chloride 105 mmol/ L 98-110 Not Available [facility] (Pre-Op [facility]) [address] [place] [address] [place], [address], 10/19/2023 08:47:22 10/19/19 24 10/19/2023 COMP METAB OLIC PANEL carbon dioxide 31 mmol/ L 21-30 high Not Available [facility] (Pre-Op [facility]) [address] [place] [address] [place], [address], 10/19/2023 08:47:22 10/19/19 24 10/19/2023 COMP METAB OLIC PANEL anion gap 6 mmol/ L 6-14 Not Available [facility] (Pre[facility]Op [facility]) [address] [place] [address] [place], [address], 10/19/2023 08:47:22 10/19/19 24 10/19/2023 COMP METAB OLIC PANEL glucose 258 mg/dL 70-115 high Not Available [facility] (Pre-Op Clinic) [address] [place] [address] [place], [address], 10/19/2023 08:47:22 10/19/19 24 10/19/2023 COMP METAB OLIC PANEL BUN 16 mg/dL 7-17 Not Available [facility] (Pre[facility]Op [facility]) [address] [place] [address] [place], [address], 10/19/2023 08:47:22 10/19/19 24 10/19/2023 COMP METAB OLIC PANEL creatinine 0.8 mg/dL 0.5-1. 5 Not Available [facility] (Pre-Op Clinic) [address] [place] [address] [place], [address], 10/19/2023 08:47:22 10/19/19 24 10/19/2023 COMP METAB OLIC PANEL BUN/creatini ne ratio 20 ratio 10-20 Not Available [facility] (Pre-Op Clinic) [address] [place] [address] [place], [address], 10/19/2023 08:47:22 10/19/19 24 10/19/2023 COMP METAB OLIC PANEL glom filtration rate 77 mL/mi n >60- Not Available [facility] (Pre[facility]Op [facility]) [address] [place] [address] [place], [address], 10/19/2023 08:47:22 10/19/19 24 10/19/2023 COMP METAB OLIC PANEL osmolality (calculated) 305 mosmo l/kg 275-30 1 high OSMOL ALITY IS A CALCU LATIO N UTILI ZING THE SERUM /PLAS MA SODIU M, GLUCO SE AND UREA NITRO GEN (BUN) LEVEL S. FOR THE MOST ACCUR ATE RESUL T A MEASU RED SERUM OSMOL ALITY IS SUGGE STED. Not Available [facility] (Pre[facility]Op [facility]) [address] [place] [address] [place], [address], 10/19/2023 08:47:22 10/19/19 24 10/19/2023 COMP METAB OLIC PANEL total protein 6.5 g/dL 6.2-8. 2 Not Available [facility] (Pre[facility]Op [facility]) [address] [place] [address] [place], [address], 10/19/2023 08:47:22 10/19/19 24 10/19/2023 COMP METAB OLIC PANEL albumin 3.9 g/dL 3.5-5. 0 Not Available [facility] (Pre[facility]Op [facility]) [address] [place] [address] [place], [address], 10/19/2023 08:47:22 10/19/19 24 10/19/2023 COMP METAB OLIC PANEL calcium 9.7 mg/dL 8.5-10 .8 Not Available [facility] ([facility]Op [facility]) [address] [place] [address] [place], [address], 10/19/2023 08:47:22 10/19/19 24 10/19/2023 COMP METAB OLIC PANEL bilirubin total 0.4 mg/dL 0.2-1. 3 Not Available [facility] ([facility]Op [facility]) [address] [place] [address] [place], [address], 10/19/2023 08:47:22 10/19/19 24 10/19/2023 COMP METAB OLIC PANEL AST (SGOT) 20 IU/L 14-36 Not Available [facility] ([facility]Op [facility]) [address] [place] [address] [place], [address], 10/19/2023 08:47:22 10/19/19 24 10/19/2023 COMP METAB OLIC PANEL ALT (SGPT) 16 IU/L 0-35 Pleas e note new refer ence inter lynn for ALT. 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 Not Available [facility] ([facility]Op [facility]) [address] [place] [address] [place], [address], 10/19/2023 08:47:22 10/19/19 24 10/19/2023 COMP METAB OLIC PANEL alk phosphatase 98 IU/L 38-126 Not Available [facility] (Pre-Op [facility]) [address] [place] [address] [place], [address], 10/19/2023 08:47:22 10/19/19 24 10/19/2023 COMP METAB OLIC PANEL note Benjie s other godinez noted testi ng perfo rmed at: [facility] [address] [place] [address] Juan Antonio rivera MD Not Available [facility] ([facility]Op [facility]) [address] [place] [address] [place], [address], 10/19/2023 08:47:22 10/19/19 24 10/19/2023 MAGNE SIUM magnesium 1.5 mg/dL 1.6-2. 4 low Not Available [facility] (Pre[facility]Op [facility]) [address] [place] [address] [place], [address], 10/19/2023 08:47:23 10/19/19 24 10/19/2023 MAGNE SIUM note Unles s other godinez noted testi ng perfo rmed at: [facility] [address] [address] Juan Antonio rivera MD Not Available [facility] ([facility]Op [facility]) [address] [place] [address] [place], [address], 10/19/2023 08:47:23 11/09/19 24 11/09/2023 CBC W/ AUTO DIFF WBC 7.86 K/uL 4.5-11 .5 Not Available [facility] ([facility]Op [facility]) [address] [place] [address] [place], [address], 11/09/2023 08:55:13 11/09/19 24 11/09/2023 CBC W/ AUTO DIFF RBC 3.68 M/uL 4.0-5. 4 low Not Available [facility] ([facility]Op [facility]) [address] [place] [address] [place], [address], 11/09/2023 08:55:13 11/09/1911/09/2023 CBC W/ AUTO DIFF HGB 11.2 g/dL 12.0-1 5.0 low Not Available [facility] ([facility]Op [facility]) [address] [place] [address] [place], [address], 11/09/2023 08:55:13 11/09/19 24 11/09/2023 CBC W/ AUTO DIFF HCT 36.1 % 35-49 Not Available [facility] ([facility]Op [facility]) [address] [place] [address] [place], [address], 11/09/2023 08:55:13 11/09/19 24 11/09/2023 CBC W/ AUTO DIFF MCV 98.1 fL 80.0-1 00.0 Not Available [facility] (Pre[facility]Op [facility]) [address] [place] [address] [place], [address], 11/09/2023 08:55:13 11/09/1911/09/2023 CBC W/ AUTO DIFF MCH 30.4 pg 26.0-3 2.0 Not Available [facility] ([facility]Op [facility]) [address] [place] [address] [place], [address], 11/09/2023 08:55:13 11/09/19 24 11/09/2023 CBC W/ AUTO DIFF MCHC 31.0 g/dL 32.0-3 6.0 low Not Available [facility] ([facility]Op [facility]) [address] [place] [address] [place], [address], 11/09/2023 08:55:13 11/09/19 24 11/09/2023 CBC W/ AUTO DIFF RDW 16.8 % 11.5-1 4.5 high Not Available [facility] ([facility]Op [facility]) [address] [place] [address] [place], [address], 11/09/2023 08:55:13 11/09/19 24 11/09/2023 CBC W/ AUTO DIFF platelet count 307 K/uL 142-42 4 Not Available [facility] ([facility]Op [facility]) [address] [place] [address] [place], [address], 11/09/2023 08:55:13 11/09/19 24 11/09/2023 CBC W/ AUTO DIFF MPV 9.5 fL 6.8-10 .2 Not Available [facility] (Pre[facility]Op [facility]) [address] [place] [address] [place], [address], 11/09/2023 08:55:13 11/09/19 24 11/09/2023 CBC W/ AUTO DIFF neutrophil % 69.9 % 50-70 Not Available [facility] ([facility]Op [facility]) [address] [place] [address] [place], [address], 11/09/2023 08:55:13 11/09/19 24 11/09/2023 CBC W/ AUTO DIFF lymphocyte % 13.6 % 18.0-4 2.0 low Not Available [facility] ([facility]Op [facility]) [address] [place] [address] [place], [address], 11/09/2023 08:55:13 11/09/19 24 11/09/2023 CBC W/ AUTO DIFF monocyte % 10.1 % 2.0-11 .0 Not Available [facility] ([facility]Op [facility]) [address] [place] [address] [place], [address], 11/09/2023 08:55:13 11/09/19 24 11/09/2023 CBC W/ AUTO DIFF eosinophil % 2.4 % 1.0-3. 0 Not Available [facility] ([facility]Op [facility]) [address] [place] [address] [place], [address], 11/09/2023 08:55:13 11/09/1911/09/2023 CBC W/ AUTO DIFF basophil % 1.3 % 0.0-2. 0 Not Available [facility] ([facility]Op [facility]) [address] [place] [address] [place], [address], 11/09/2023 08:55:13 11/09/1911/09/2023 CBC W/ AUTO DIFF immature granulocytes % 2.7 % 0.0-0. 8 high Not Available [facility] (Pre[facility]Op [facility]) [address] [place] [address] [place], [address], 11/09/2023 08:55:13 11/09/1911/09/2023 CBC W/ AUTO DIFF nucleated red blood cells % 0.3 % Not Available [facility] (Pre-Op Clinic) [address] [place] [address] [place], [address], 11/09/2023 08:55:13 11/09/1911/09/2023 CBC W/ AUTO DIFF neutrophil # 5.50 K/uL Not Available [facility] (Pre-Op Clinic) [address] [place] [address] [place], [address], 11/09/2023 08:55:13 11/09/1911/09/2023 CBC W/ AUTO DIFF lymphocyte # 1.07 K/uL Not Available [facility] (Pre-Op Clinic) [address] [place] [address] [place], [address], 11/09/2023 08:55:13 11/09/1908 1111/09/2023 CBC W/ AUTO DIFF monocyte # 0.79 K/uL Not Available [facility] (Pre[facility]Op [facility]) [address] [place] [address] [place], [address], 11/09/2023 08:55:13 11/09/19 24 11/09/2023 CBC W/ AUTO DIFF eosinophil # 0.19 K/uL Not Available [facility] (Pre[facility]Op [facility]) [address] [place] [address] [place], [address], 11/09/2023 08:55:13 11/09/19 24 11/09/2023 CBC W/ AUTO DIFF basophil # 0.10 K/uL Not Available [facility] (Pre-Op Clinic) [address] [place] [address] [place], [address], 11/09/2023 08:55:13 11/09/19 24 11/09/2023 CBC W/ AUTO DIFF immature gramulocytes # 0.21 K/uL Not Available [facility] (Pre[facility]Op [facility]) [address] [place] [address] [place], [address], 11/09/2023 08:55:13 11/09/19 24 11/09/2023 CBC W/ AUTO DIFF nucleated red blood cells # 0.02 k/uL Not Available [facility] (Pre-Op Clinic) [address] [place] [address] [place], [address], 11/09/2023 08:55:13 11/09/19 24 11/09/2023 CBC W/ AUTO DIFF manual differential NO Not Available [facility] (Pre-Op Clinic) [address] [place] [address] [place], [address], 11/09/2023 08:55:13 11/09/19 24 11/09/2023 CBC W/ AUTO DIFF note Unles s other godinez noted testi ng perfo rmed at: [facility] [address] [facility] [place] [address] Juan Antonio rivera MD Not Available [facility] ([facility]Op [facility]) [address] [place] [address] [place], [address], 11/09/2023 08:55:13 11/09/19 24 11/09/2023 COMP METAB OLIC PANEL sodium 142 mmol/ L 137-14 7 Not Available [facility] (Pre[facility]Op [facility]) [address] [place] [address] [place], [address], 11/09/2023 09:19:53 11/09/19 24 11/09/2023 COMP METAB OLIC PANEL potassium 3.9 mmol/ L 3.5-5. 1 Not Available [facility] (Pre[facility]Op [facility]) [address] [place] [address] [place], [address], 11/09/2023 09:19:53 11/09/1911/09/2023 COMP METAB OLIC PANEL chloride 101 mmol/ L 98-110 Not Available [facility] (Pre[facility]Op [facility]) [address] [place] [address] [place], [address], 11/09/2023 09:19:53 11/09/1911/09/2023 COMP METAB OLIC PANEL carbon dioxide 28 mmol/ L 21-30 Not Available [facility] ([facility]Op [facility]) [address] [place] [address] [place], [address], 11/09/2023 09:19:53 11/09/1911/09/2023 COMP METAB OLIC PANEL anion gap 13 mmol/ L 6-14 Not Available [facility] ([facility]Op [facility]) [address] [place] [address] [place], [address], 11/09/2023 09:19:53 11/09/1911/09/2023 COMP METAB OLIC PANEL glucose 187 mg/dL 70-115 high Not Available [facility] ([facility]Op [facility]) [address] [place] [address] [place], [address], 11/09/2023 09:19:53 11/09/19 24 11/09/2023 COMP METAB OLIC PANEL BUN 16 mg/dL 7-17 Not Available [facility] ([facility]Op [facility]) [address] [place] [address] [place], [address], 11/09/2023 09:19:53 11/09/19 24 11/09/2023 COMP METAB OLIC PANEL creatinine 0.8 mg/dL 0.5-1. 5 Not Available [facility] ([facility]Op [facility]) [address] [place] [address] [place], [address], 11/09/2023 09:19:53 11/09/1911/09/2023 COMP METAB OLIC PANEL BUN/creatini ne ratio 20 ratio 10-20 Not Available [facility] (Pre[facility]Op [facility]) [address] [place] [address] [place], [address], 11/09/2023 09:19:53 11/09/1911/09/2023 COMP METAB OLIC PANEL glom filtration rate 83 mL/mi n >60- Not Available [facility] (Pre[facility]Op [facility]) [address] [place] [address] [place], [address], 11/09/2023 09:19:53 11/09/1911/09/2023 COMP METAB OLIC PANEL osmolality (calculated) 301 mosmo l/kg 275-30 1 OSMOL ALITY IS A CALCU LATIO N UTILI ZING THE SERUM /PLAS MA SODIU M, GLUCO SE AND UREA NITRO GEN (BUN) LEVEL S. FOR THE MOST ACCUR ATE RESUL T A MEASU RED SERUM OSMOL ALITY IS SUGGE STED. Not Available [facility] (Pre[facility]Op [facility]) [address] [place] [address] [place], [address], 11/09/2023 09:19:53 11/09/1911/09/2023 COMP METAB OLIC PANEL total protein 7.3 g/dL 6.2-8. 2 Not Available [facility] ([facility]Op [facility]) [address] [place] [address] [place], [address], 11/09/2023 09:19:53 11/09/19 24 11/09/2023 COMP METAB OLIC PANEL albumin 4.1 g/dL 3.5-5. 0 Not Available [facility] (Pre[facility]Op [facility]) [address] [place] [address] [place], [address], 11/09/2023 09:19:53 11/09/1911/09/2023 COMP METAB OLIC PANEL calcium 9.5 mg/dL 8.5-10 .8 Not Available [facility] ([facility]-Op [facility]) [address] [place] [address] [place], [address], 11/09/2023 09:19:53 11/09/1911/09/2023 COMP METAB OLIC PANEL bilirubin total 0.5 mg/dL 0.2-1. 3 Not Available [facility] (Pre-Op Clinic) [address] [place] [address] [place], [address], 11/09/2023 09:19:53 11/09/1911/09/2023 COMP METAB OLIC PANEL AST (SGOT) 26 IU/L 14-36 Not Available [facility] (Pre-Op Clinic) [address] [place] [address] [place], [address], 11/09/2023 09:19:53 11/09/1911/09/2023 COMP METAB OLIC PANEL ALT (SGPT) 16 IU/L 0-35 Pleas e note new refer ence inter lynn for ALT. 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 Not Available [facility] (Pre-Op Clinic) [address] [place] [address] [place], [address], 11/09/2023 09:19:53 11/09/1911/09/2023 COMP METAB OLIC PANEL alk phosphatase 113 IU/L 38-126 Not Available [facility] (Pre-Op Clinic) [address] [place] [address] [place], [address], 11/09/2023 09:19:53 11/09/19 24 11/09/2023 COMP METAB OLIC PANEL note Benjie s other godinez noted testi ng perfo rmed at: [facility] [address] [place] [address] Juan Antonio rivera MD Not Available [facility] (Pre-Op Clinic) [address] [place] [address] [place], [address], 11/09/2023 09:19:53 11/09/19 24 11/09/2023 MAGNE SIUM magnesium 1.4 mg/dL 1.6-2. 4 low Not Available [facility] (Pre-Op Clinic) [address] [place] [address] [place], [address], 11/09/2023 09:19:54 11/09/19 24 11/09/2023 MAGNE SIUM note Benjie rivera other godinez noted testi ng perfo rmed at: [facility] [address] [place] [address] Juan Antonio rivera MD Not Available [facility] (Pre-Op Clinic) [address] [place] [address] [place], [address], 11/09/2023 09:19:54 11/09/19 24 11/09/2023 IRON STUDY W FE/TI BC/UI BC/%S AT iron 93 ug/dL 37-170 Not Available [facility] (Pre-Op Clinic) [address] [place] [address] [place], [address], 11/09/2023 10:42:03 11/09/19 24 11/09/2023 IRON STUDY W FE/TI BC/UI BC/%S AT total iron bind cap. 258 ug/dL 265-49 7 low Not Available [facility] (Pre-Op Clinic) [address] [place] [address] [place], [address], 11/09/2023 10:42:03 11/09/19 24 11/09/2023 IRON STUDY W FE/TI BC/UI BC/%S AT unsaturated iron binding cap 165 ug/dL 150-37 5 Not Available [facility] (Pre-Op Clinic) [address] [place] [address] [place], [address], 11/09/2023 10:42:03 11/09/19 24 11/09/2023 IRON STUDY W FE/TI BC/UI BC/%S AT % saturation 36 % 15-55 Not Available [facility] (Pre-Op Clinic) [address] [place] [address] [place], [address], 11/09/2023 10:42:03 11/09/19 24 11/09/2023 IRON STUDY W FE/TI BC/UI BC/%S AT note Unles s other godinez noted testi ng perfo rmed at: [facility] [address] [place] [address] Juan Antonio rivera MD Not Available [facility] (Pre-Op Clinic) [address] [place] [address] [place], [address], 11/09/2023 10:42:03 11/09/19 24 11/09/2023 JAMES TIN ferritin 180 NG/mL 3-105 high Not Available [facility] (Pre-Op Clinic) [address] [place] [address] [place], [address], 11/09/2023 11:17:42 11/09/19 24 11/09/2023 JAMES TIN note Unles s other godinez noted testi ng perfo rmed at: [facility] [address] [place] [address] Juan Antonio rivera MD Not Available [facility] (Pre-Op Clinic) [address] [place] [address] [place], [address], 11/09/2023 11:17:42 11/09/19 24 11/09/2023 VITAM IN B12 vitamin B12 925 pg/mL 239-93 1 Not Available [facility] (Pre-Op Clinic) [address] [place] [address] [place], [address], 11/09/2023 11:45:19 11/09/19 24 11/09/2023 VITAM IN B12 folate (folic acid), serum 11.5 NG/mL 2.76- Not Available [facility] (Pre-Op Clinic) [address] [place] [address] [place], [address], 11/09/2023 11:45:19 11/09/19 24 11/09/2023 VITAM IN B12 note Unles s other godinez noted testi ng perfo rmed at: [facility] [address] [place] [address] Juan Antonio rivera MD Not Available [facility] (Pre-Op Clinic) [address] [place] [address] [place], [address], 11/09/2023 11:45:19 11/09/19 24 11/09/2023 METHY LMALO ANDREW ACID QUANT note Unlmarquez rivera other godinez noted testi ng perfo rmed at: [facility] [address] [place] [address] Juan Antonio rivera MD Not Available [facility] (Pre-Op Clinic) [address] [place] [address] [place], [address], 11/13/2023 14:17:09 11/09/19 24 11/13/2023 METHY LMALO ANDREW ACID QUANT methylmaloni c acid, serum 198 nmol/ L 0-378 Test( s) 30132 7-Met hylma lonic Acid, Serum was devel oped and its perfo rmanc e kayla cteri stics deter mined by [facility]. It has not been clear ed or appro dequan by the Food and Drug Admin istra tion. Perfo rmed at: - [facility] [place] [address] , [place] [address] Lab Direc tor: Blanca singh MD, Phone : [phone] Not Available [facility] (Pre-Op Clinic) [address] [place] [address] [place], [address], 11/13/2023 14:17:09 02/08/20 24 02/08/2024 CBC W/ AUTO DIFF WBC 7.20 K/uL 4.5-11 .5 Not Available [facility] (Pre-Op Clinic) [address] [place] [address] [place], [address], 02/08/2024 11:13:30 02/08/20 24 02/08/2024 CBC W/ AUTO DIFF RBC 3.41 M/uL 4.0-5. 4 low Not Available [facility] (Pre-Op Clinic) [address] [place] [address] [place], [address], 02/08/2024 11:13:30 02/08/20 24 02/08/2024 CBC W/ AUTO DIFF HGB 10.8 g/dL 12.0-1 5.0 low Not Available [facility] (Pre-Op Clinic) [address] [place] [address] [place], [address], 02/08/2024 11:13:30 02/08/20 24 02/08/2024 CBC W/ AUTO DIFF HCT 34.4 % 35-49 low Not Available [facility] (Pre-Op Clinic) [address] [place] [address] [place], [address], 02/08/2024 11:13:30 02/08/20 24 02/08/2024 CBC W/ AUTO DIFF MCV 100.9 fL 80.0-1 00.0 high Not Available [facility] (Pre-Op Clinic) [address] [place] [address] [place], [address], 02/08/2024 11:13:30 02/08/20 24 02/08/2024 CBC W/ AUTO DIFF MCH 31.7 pg 26.0-3 2.0 Not Available [facility] (Pre-Op Clinic) [address] [place] [address] [place], [address], 02/08/2024 11:13:30 02/08/20 24 02/08/2024 CBC W/ AUTO DIFF MCHC 31.4 g/dL 32.0-3 6.0 low Not Available [facility] (Pre-Op Clinic) [address] [place] [address] [place], [address], 02/08/2024 11:13:30 02/08/20 24 02/08/2024 CBC W/ AUTO DIFF RDW 14.4 % 11.5-1 4.5 Not Available [facility] (Pre-Op Clinic) [address] [place] [address] [place], [address], 02/08/2024 11:13:30 02/08/20 24 02/08/2024 CBC W/ AUTO DIFF platelet count 190 K/uL 142-42 4 Not Available [facility] (Pre-Op Clinic) [address] [place] [address] [place], [address], 02/08/2024 11:13:30 02/08/20 24 02/08/2024 CBC W/ AUTO DIFF MPV 9.7 fL 6.8-10 .2 Not Available [facility] (Pre-Op Clinic) [address] [place] [address] [place], [address], 02/08/2024 11:13:30 02/08/20 24 02/08/2024 CBC W/ AUTO DIFF neutrophil % 81.4 % 50-70 high Not Available [facility] (Pre-Op Clinic) [address] [place] [address] [place], [address], 02/08/2024 11:13:30 02/08/20 24 02/08/2024 CBC W/ AUTO DIFF lymphocyte % 9.9 % 18.0-4 2.0 low Not Available [facility] (Pre-Op Clinic) [address] [place] [address] [place], [address], 02/08/2024 11:13:30 02/08/20 24 02/08/2024 CBC W/ AUTO DIFF monocyte % 3.6 % 2.0-11 .0 Not Available [facility] (Pre-Op Clinic) [address] [place] [address] [place], [address], 02/08/2024 11:13:30 02/08/20 24 02/08/2024 CBC W/ AUTO DIFF eosinophil % 4.0 % 1.0-3. 0 high Not Available [facility] (Pre-Op Clinic) [address] [place] [address] [place], [address], 02/08/2024 11:13:30 02/08/20 24 02/08/2024 CBC W/ AUTO DIFF basophil % 0.7 % 0.0-2. 0 Not Available [facility] (Pre-Op Clinic) [address] [place] [address] [place], [address], 02/08/2024 11:13:30 02/08/20 24 02/08/2024 CBC W/ AUTO DIFF immature granulocytes % 0.4 % 0.0-0. 8 Not Available [facility] (Pre-Op Clinic) [address] [place] [address] [place], [address], 02/08/2024 11:13:30 02/08/20 24 02/08/2024 CBC W/ AUTO DIFF nucleated red blood cells % 0.0 % Not Available [facility] (Pre-Op Clinic) [address] [place] [address] [place], [address], 02/08/2024 11:13:30 02/08/20 24 02/08/2024 CBC W/ AUTO DIFF neutrophil # 5.86 K/uL Not Available [facility] (Pre-Op Clinic) [address] [place] [address] [place], [address], 02/08/2024 11:13:30 02/08/20 24 02/08/2024 CBC W/ AUTO DIFF lymphocyte # 0.71 K/uL Not Available [facility] (Pre-Op Clinic) [address] [place] [address] [place], [address], 02/08/2024 11:13:30 02/08/20 24 02/08/2024 CBC W/ AUTO DIFF monocyte # 0.26 K/uL Not Available [facility] (Pre-Op Clinic) [address] [place] [address] [place], [address], 02/08/2024 11:13:30 02/08/20 24 02/08/2024 CBC W/ AUTO DIFF eosinophil # 0.29 K/uL Not Available [facility] (Pre-Op Clinic) [address] [place] [address] [place], [address], 02/08/2024 11:13:30 02/08/20 24 02/08/2024 CBC W/ AUTO DIFF basophil # 0.05 K/uL Not Available [facility] (Pre-Op Clinic) [address] [place] [address] [place], [address], 02/08/2024 11:13:30 02/08/20 24 02/08/2024 CBC W/ AUTO DIFF immature gramulocytes # 0.03 K/uL Not Available [facility] (Pre-Op Clinic) [address] [place] [address] [place], [address], 02/08/2024 11:13:30 02/08/20 24 02/08/2024 CBC W/ AUTO DIFF nucleated red blood cells # 0.00 k/uL Not Available [facility] (Pre-Op Clinic) [address] [place] [address] [place], [address], 02/08/2024 11:13:30 02/08/20 24 02/08/2024 CBC W/ AUTO DIFF manual differential NO Not Available [facility] (Pre-Op Clinic) [address] [place] [address] [place], [address], 02/08/2024 11:13:30 02/08/20 24 02/08/2024 CBC W/ AUTO DIFF note Unles s other godinez noted testi ng perfo rmed at: [facility] [address] [place] [address] Juan Antonio rivera MD Not Available [facility] (Pre-Op Clinic) [address] [place] [address] [place], [address], 02/08/2024 11:13:30 09/23/20 24 02/08/2024 COMP METAB OLIC PANEL sodium 144 mmol/ L 137-14 7 Not Available [facility] (Pre-Op Clinic) [address] [facility] [place], [address], 02/08/2024 11:52:56 02/08/20 24 02/08/2024 COMP METAB OLIC PANEL potassium 4.1 mmol/ L 3.5-5. 1 Not Available [facility] (Pre-Op Clinic) [address] [facility] [place], [address], 02/08/2024 11:52:56 02/08/20 24 02/08/2024 COMP METAB OLIC PANEL chloride 106 mmol/ L 98-110 Not Available [facility] (Pre-Op Clinic) [address] [place] [address] [place], [address], 02/08/2024 11:52:56 02/08/20 24 02/08/2024 COMP METAB OLIC PANEL carbon dioxide 27 mmol/ L 21-30 Not Available [facility] (Pre-Op Clinic) [address] [facility] [place], [address], 02/08/2024 11:52:56 02/08/20 24 02/08/2024 COMP METAB OLIC PANEL anion gap 11 mmol/ L 6-14 Not Available [facility] (Pre-Op Clinic) [address] [place] [address] [place], [address], 02/08/2024 11:52:56 02/08/20 24 02/08/2024 COMP METAB OLIC PANEL glucose 208 mg/dL 70-115 high Not Available [facility] (Pre-Op Clinic) [address] [place] [address] [place], [address], 02/08/2024 11:52:56 02/08/20 24 02/08/2024 COMP METAB OLIC PANEL BUN 21 mg/dL 7-17 high Not Available [facility] (Pre-Op Clinic) [address] [place] [address] [place], [address], 02/08/2024 11:52:56 02/08/20 24 02/08/2024 COMP METAB OLIC PANEL creatinine 1.0 mg/dL 0.5-1. 5 Not Available [facility] (Pre-Op Clinic) [address] [facility] [place], [address], 02/08/2024 11:52:56 02/08/20 24 02/08/2024 COMP METAB OLIC PANEL BUN/creatini ne ratio 21 ratio 10-20 high Not Available [facility] (Pre-Op Clinic) [address] [place] [address] [place], [address], 02/08/2024 11:52:56 02/08/20 24 02/08/2024 COMP METAB OLIC PANEL glom filtration rate 63 mL/mi n >60- Not Available [facility] (Pre-Op Clinic) [address] [place] [address] [place], [address], 02/08/2024 11:52:56 02/08/20 24 02/08/2024 COMP METAB OLIC PANEL osmolality (calculated) 308 mosmo l/kg 275-30 1 high OSMOL ALITY IS A CALCU LATIO N UTILI ZING THE SERUM /PLAS MA SODIU M, GLUCO SE AND UREA NITRO GEN (BUN) LEVEL S. FOR THE MOST ACCUR ATE RESUL T A MEASU RED SERUM OSMOL ALITY IS SUGGE STED. Not Available [facility] (Pre-Op Clinic) [address] [facility] [place], [address], 02/08/2024 11:52:56 02/08/20 24 02/08/2024 COMP METAB OLIC PANEL total protein 7.7 g/dL 6.2-8. 2 Not Available [facility] (Pre-Op Clinic) [address] [place] [address] [place], [address], 02/08/2024 11:52:56 02/08/20 24 02/08/2024 COMP METAB OLIC PANEL albumin 4.1 g/dL 3.5-5. 0 Not Available [facility] (Pre-Op Clinic) [address] [place] [address] [place], [address], 02/08/2024 11:52:56 02/08/20 24 02/08/2024 COMP METAB OLIC PANEL calcium 9.2 mg/dL 8.5-10 .8 Not Available [facility] (Pre-Op Clinic) [address] [place] [address] [place], [address], 02/08/2024 11:52:56 02/08/20 24 02/08/2024 COMP METAB OLIC PANEL bilirubin total 0.4 mg/dL 0.2-1. 3 Not Available [facility] (Pre-Op Clinic) [address] [place] [address] [place], [address], 02/08/2024 11:52:56 02/08/20 24 02/08/2024 COMP METAB OLIC PANEL AST (SGOT) 24 IU/L 14-36 Not Available [facility] (Pre-Op Clinic) [address] [place] [address] [place], [address], 02/08/2024 11:52:56 02/08/20 24 02/08/2024 COMP METAB OLIC PANEL ALT (SGPT) 19 IU/L 0-35 Pleas e note new refer ence inter lynn for ALT. 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 Not Available [facility] (Pre-Op Clinic) [address] [place] [address] [place], [address], 02/08/2024 11:52:56 02/08/20 24 02/08/2024 COMP METAB OLIC PANEL alk phosphatase 121 IU/L 38-126 Not Available [facility] (Pre-Op Clinic) [address] [place] [address] [place], [address], 02/08/2024 11:52:56 02/08/20 24 02/08/2024 COMP METAB OLIC PANEL note Unles s other godinez noted testi ng perfo rmed at: [facility] [address] [place] [address] Juan Antonio rivera MD Not Available [facility] (Pre-Op Clinic) [address] [place] [address] [place], [address], 02/08/2024 11:52:56 02/08/20 24 02/08/2024 VITAM IN D, 25-HY DROXY vitamin D, 25-hydroxy 39.1 NG/mL 30-100 Vitam in D defic iency has been defin ed by the [facility] ty pract ice guide line as a level of serum 25-OH vitam in D less than 20 ng/mL . The Endoc rine Socie ty went on to [facility] er defin e vitam in D insuf ficie ncy as a level betwe en 20 and 29 ng/mL . Level s of vitam in D betwe en 30 and 100 ng/mL are consi dered suffi ent. Level s above 100 ng/mL are consi dered poten tiall y toxic . Not Available [facility] (Pre-Op Clinic) [address] [place] [address] [place], [address], 02/08/2024 12:01:45 02/08/20 24 02/08/2024 VITAM IN D, 25-HY DROXY note Unles s other godinez noted testi ng perfo rmed at: [facility] [address] [place] [address] Juan Antonio rivera MD Not Available [facility] (Pre-Op Clinic) [address] [place] [address] [place], [address], 02/08/2024 12:01:45 02/08/20 24 02/08/2024 TSH thyroid stim hormone 3.21 uIU/m L 0.465- 4.68 Not Available [facility] (Pre-Op Clinic) [address] [place] [address] [place], [address], 02/08/2024 12:28:58 02/08/20 24 02/08/2024 TSH note Unles s other godinez noted testi ng perfo rmed at: [facility] [address] [place] [address] Juan Antonio rivera MD Not Available [facility] (Pre-Op Clinic) [address] [place] [address] [place], [address], 02/08/2024 12:28:58 02/08/20 24 02/08/2024 VITAM IN B12 vitamin B12 882 pg/mL 239-93 1 Not Available [facility] (Pre-Op Clinic) [address] [place] [address] [place], [address], 02/08/2024 12:33:32 02/08/20 24 02/08/2024 VITAM IN B12 note Benjie rivera other godinez noted testi ng perfo rmed at: [facility] [address] [place] [address] Juan Antonio rivera MD Not Available [facility] (Pre-Op Clinic) [address] [place] [address] [place], [address], 02/08/2024 12:33:32 02/08/20 24 02/08/2024 FOLAT E folate (folic acid), serum 8.2 NG/mL 2.76- Not Available [facility] (Pre-Op Clinic) [address] [place] [address] [place], [address], 02/08/2024 12:50:13 02/08/20 24 02/08/2024 FOLAT E note Benjie s other godinez noted testi ng perfo rmed at: [facility] [address] [place] [address] Juan Antonio rivera MD Not Available [facility] (Pre-Op Clinic) [address] [place] [address] [place], [address], 02/08/2024 12:50:13 02/08/20 24 02/08/2024 T4 FREE T4 free 1.35 NG/dL 0.78-2 .19 Not Available [facility] (Pre-Op Clinic) [address] [place] [address] [place], [address], 02/08/2024 12:52:26 02/08/20 24 02/08/2024 T4 FREE note Unles s other godinez noted testi ng perfo rmed at: [facility] [address] [place] [address] Juan Antonio rivera MD Not Available [facility] (Pre-Op Clinic) [address] [place] [address] [place], [address], 02/08/2024 12:52:26 02/08/20 24 02/08/2024 METHY LMALO ANDREW ACID QUANT note Unles s other godinez noted testi ng perfo rmed at: [facility] [address] [place] [address] Juan Antonio rivera MD Not Available [facility] (Pre-Op Clinic) [address] [place] [address] [place], [address], 02/11/2024 18:11:06 02/08/20 24 02/11/2024 METHY LMALO ANDREW ACID QUANT methylmaloni c acid, serum 191 nmol/ L 0-378 Test( s) 38744 7-Met hylma lonic Acid, Serum was devel oped and its perfo rmanc e kayla cteri stics deter mined by [facility]. It has not been clear ed or appro dequan by the Food and Drug Admin istra tion. Perfo rmed at: - [facility] [place] [address] [facility] , [place] [address] Lab Direc tor: Blanca singh MD, Phone : [phone] Not Available [facility] (Pre-Op Clinic) [address] [place] [address] [place], [address], 02/11/2024 18:11:06 06/24/19 25 06/24/2024 CREAT ININE creatinine 0.9 mg/dL 0.5-1. 5 Not Available [facility] (Pre-Op Clinic) [address] [place] [address] [place], [address], 06/24/2024 12:55:41 06/24/19 25 06/24/2024 CREAT ININE glom filtration rate 72 mL/mi n >60- GFR LIMIT ATION : The eGFR equat ion CKD-E PI 2020 is not appli cable for pedia tric patie nts or great er than 90 years of age. The follo wing condi tions may alter the GFR resul t: extre mes in body size, malnu triti on or obesi ty, skele marilyn muscl e disea se, parap legia or quadr ipleg ia, veget nicolette diet or rapid ly rangel ing kiney funct ion. Not Available [facility] (Pre-Op Clinic) [address] [place] [address] [place], [address], 06/24/2024 12:55:41 06/24/19 25 06/24/2024 CREAT ININE note Unles s other godinez noted testi ng perfo rmed at: [facility] [address] [place] [address] Juan Antonio rivera MD Not Available [facility] (Pre-Op Clinic) [address] [place] [address] [place], [address], 06/24/2024 12:55:41 08/18/19 25 08/17/2024 CREAT ININE creatinine 0.9 mg/dL 0.5-1. 5 Not Available [facility] (Pre-Op Clinic) [address] [place] [address] [place], [address], 08/17/2024 10:41:12 08/18/19 25 08/17/2024 CREAT ININE glom filtration rate 72 mL/mi n >60- GFR LIMIT ATION : The eGFR equat ion CKD-E PI 2020 is not appli cable for pedia tric patie nts or great er than 90 years of age. The follo wing condi tions may alter the GFR resul t: extre mes in body size, malnu triti on or obesi ty, skele marilyn muscl e disea se, parap legia or quadr ipleg ia, veget nicolette diet or rapid ly rangel ing kiney funct ion. Not Available [facility] (Pre-Op Clinic) [address] [place] [address] [place], [address], 08/17/2024 10:41:12 08/18/19 25 08/17/2024 CREAT ININE note Unles s other godinez noted testi ng perfo rmed at: [facility] [address] [place] [address] Juan Antonio rivera MD Not Available [facility] (Pre-Op Clinic) [address] [place] [address] [place], [address], 08/17/2024 10:41:12 11/17/19 24 11/17/2023 elect tim boatenggr am No observ ation record ed. [facility] [address] [place] [address] [address], [place], [address], 11/17/2023 20:20:23 11/17/19 24 elect rockelechi boatenggr am No observ ation record ed. [email or web address] Not Available 2023 20:20:24 02/18/20 24 02/16/2024 PET-C T, skull base to mid-t high scan [facility] [address] [place] [address] [phone] (Phone ) JUVENAL Gallagher REPORT Name: TERESA SHARP : 1960 Accoun t #: [id number] Age: 63 Years Patien t Type: Outpat ient Sex: F Access ion#: [id number] Exam Descri ption: PET/CT SKULL BASE - MID THIGH Exam Reason : [id number] malign ant neopla sm of unsp part of uns bronch us or radha Order Date/T sammi: 2023 10:36: 00 AM Dictat ed By: Naun salas MD Orderi ng Physic juana: PERNELL ARAUJO Attend ing Physic juana: PERNELL ARAUJO EXAMIN ATION: SKULL BASE TO MID THIGH F-18 FDG PET/CT CLINIC AL INDICA TION: Female , 63 years old. [id number] malign ant neopla sm of unsp part of uns bronch us or radha TECHNI QUE: Low dose, non-di agnost ic qualit y CT images were acquir ed from the skull base to the mid thighs for attenu ation correc tion and anatom ic locali zation . This was follow ed by positr on emissi on tomogr aphy (PET) imagin g in the same distri bution . Radiop harmac eutica l: 12.1 mCi of F-18 FDG. Recent blood sugar level: 115 mg/dl. Uptake time: 60 minute s. COMPAR JOSE: September 01, 2023 CORREL ATION: CT chest, abdome n and pelvis dated October 24, 2023 FINDIN GS: Refere nce backgr ound hepati c uptake maximu m SUV: 4.9 Refere nce medias tinal blood pool maximu m SUV: 4.6 HEAD AND NECK: PAGE 1 OF 3 Name: TERESA SHARP : 1960 Accoun t #: [id number] Age: 63 Years Patien t Type: Outpat ient Sex: F Access ion#: [id number] Exam Descri ption: PET/CT SKULL BASE - MID THIGH Exam Reason : [id number] malign ant neopla sm of unsp part of uns bronch us or radha Order Date/T sammi: 2023 10:36: 00 AM Physio logic radiot racer distri bution . Non-di agnost ic CT findin gs: Scatte red mucosa l thicke amelie to the bilate ral maxill chato sinuse s. CHEST: Interv ally decrea sed extent of FDG uptake compar ed to prior study, persis tent hetero geneou s focal FDG uptake to the right hilum, maximu m SUV of 5.3. Hetero geneou s modera te to intens e uptake is also noted to the right paratr acheal lymph node seen on series 2 image 73, maximu m SUV of 3.9, measur ing up to 8 mm. Interv ally develo ped amorph ous reticu lar conflu ent appear ing opacit ies to the manager trading ior right upper lobe and superi or segmen t right lower lobe, demons tratin g hetero geneou s FDG uptake , maximu m SUV of 4.8. Non-di agnost ic CT findin gs: Modera te caballero ry artery calcif icatio n. Modera te thorac ic aortic athero sclero sis. Right hilar calcif icatio n. ABDOME N AND PELVIS : Physio logic radiot racer distri bution noting for wide range of FDG uptake to bowel. . Carole-b ladder artifa ct, limits evalua tion of FDG uptake to adjace nt soft tissue s. Non-di agnost ic CT findin gs: Scatte red coarse calcif icatio ns to the liver and spleen , may repres ent sequel ae of granul omatou s diseas e. Modera te aortoi liac athero sclero sis. Photop enia to multip le partia lly exophy tic right renal cysts. Modera te to severe divert iculos is. Left PAGE 2 OF 3 : 1960 Accoun t #: [id number] Age: 63 Years Patien t Type: Outpat ient Sex: F Access ion#: [id number] Exam Descri ption: PET/CT SKULL BASE - MID THIGH Exam Reason : [id number] malign ant neopla sm of unsp part of uns bronch us or radha Order Date/T sammi: 2023 10:36: 00 AM fat-co ntaini ng inguin al hernia . 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 Non-di agnost ic CT findin gs: None. IMPRES LISA: 1. Interv ally decrea sed extent of FDG uptake and FDG avidit y to the right hilar mass, maximu m SUV of 5.3 on today' s examin ation. Persis tent uptake to right paratr acheal promin ent lymph nodes. Findin gs likely repres ent improv ing but persis tent residu al diseas e versus posttr eatmen t change s. 2. Interv ally develo ped amorph ous reticu lar and inters titial conflu ent appear ing opacit ies to the manager trading ior right upper lobe and superi or segmen t right lower lobe, demons tratin g hetero geneou s FDG uptake , may repres ent reacti ve uptake to posttr eatmen t change s versus infect ious or inflam matory proces s. Recomm end attent ion on follow -up. Electr onical ly signed by: Naun salas MD 2023 11:46 AM EDT RP Workst ation: [id number] Princi pal Interp reter Name: Naun Sifuentes anti Provid er ID: [id number] PAGE 3 OF 3 CC'ed Logic: Orderi ng Provid er: GAYLE GIMENEZ CC Provid er: SHEN PATTERSON AD Attend ing Provid er: GAYLE GIMENEZ Referr ing Provid er: GAYLE GIMENEZ Admitt ing Provid er: GAYLE GIMENEZ [email or web address] [facility] (Central Scheduling) [address] [facility] [place], [address], 02/23/2024 15:09:34 06/24/19 25 06/24/2024 CT, abdom en + pelvi s, w/o contr ast [facility] [address] [place] [address] (Phone ) JUVENAL Gallagher REPORT Name: TERESA SHARP : 1960 Accoun t #: [id number] Age: 63 Years Patien t Type: Outpat ient Sex: F Access ion#: [id number] Exam Descri ption: CT CHEST/ ABD/PE L NO PO-IV ONLY Exam Reason : malign ant neopla sm unspc brochu s or lung Order Date/T sammi: 2024 02:49: 15 PM Dictat ed By: Angelina Ramachandran se, MD Orderi ng Physic juana: PERNELL ARAUJO Attend ing Physic juana: PERNELL ARAUJO CT CHEST ABDOME N PELVIS WITH IV CONTRA ST, 06/24/19 1:49 PM PATIENT FINANCIAL ADVOCATE INDICA TION: malign ant neopla sm unspc [...] sm. No centra l, lobar, or segmen marilyn pulmon chato emboli . PAGE 1 OF 3 Name: TERESA SHARP : 1960 Accoun t #: [id number] Age: 63 Years Patien t Type: Outpat ient Sex: F Access ion#: [id number] Exam Descri ption: CT CHEST/ ABD/PE [...] OF 3 : 1960 Accoun t #: [id number] Age: 63 Years Patien t Type: Outpat ient Sex: F Access ion#: [id number] Exam Descri ption: CT CHEST/ ABD/PE [...] GAYLE Berryitt ing Provid er: GAYLE GIMENEZ [email or web address] [facility] (Central Scheduling) [address] [place] [address] [place], [address], 06/27/2024 13:59:26 08/19/19 25 08/17/2024 CT, chest , w/ contr ast [facility] [address] [place] [address] (Phone ) JUVENAL Gallagher REPORT Name: TERESA SHARP : 1960 Accoun t #: [id number] Age: 63 Years Patien t Type: Outpat ient Sex: F Access ion#: [id number] Exam Descri ption: CT CHEST W [...] scarri ng in the right upper lobe manager trading ior segmen t. Minima l depend ent atelec tasis versus scarri ng unchan ged. Stable subple ural micron odule in the left lower lobe apical segmen t. No new consol idatio n, pleura l effusi on or pneumo thorax . PAGE 1 OF 2 Name: TERESA SHARP : 1960 Accoun t #: [id number] Age: 63 Years Patien t Type: Outpat ient Sex: F Access ion#: [id number] Exam Descri ption: CT CHEST W [...] scarri ng in the right upper lobe manager trading ior segmen t. No new consol idatio n, pleura l effusi on or pneumo thorax . 2. Stable subple ural micron odule in the left lower lobe apical segmen t. 3. Mild to modera te caballero ry calcif icatio ns. Mitral valve calcif icatio ns. Electr onical ly signed by: Iliana carreon MD 2024 04:10 AM EDT RP Workst ation: [id number] Princi pal Interp reter Name: Iliana carreon Provid er ID: [id number] PAGE 2 OF 2 CC'ed Logic: Orderi ng Provid er: ELGARI ED YOUSOF CC Provid er: SHEN PATTERSON AD Attend ing Provid er: ELGARI ED YOUSOF Referr ing Provid er: ELGARI ED YOUSOF Admitt ing Provid er: [facility] [email or web address] [facility] (Central Scheduling) [address] [place] [address], [address], 08/18/2024 08:16:46 Result Notes Documentation Provider Name and Address Organization Details Recorded Time Pet-ct, Skull Base To Mid-thigh Scan : [address] [address] (Phone) IMAGING REPORT Name: TERESA URBINA : 1960 Age: 63 Years Patient Type: Outpatient Sex: F Exam Description: PET/CT SKULL BASE - MID THIGH Exam Reason: 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 This was followed by positron emission tomography (PET) imaging in the same distribution. Radiopharmaceutical: 12.1 mCi of F-18 FDG. Recent blood sugar level: 115 mg/dl. Uptake time: 60 minutes. 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 Non-diagnostic CT findings: Scattered mucosal thickening to the bilateral maxillary sinuses. CHEST: Intervally decreased extent of FDG uptake compared to prior study, persistent heterogeneous focal FDG uptake to the right hilum, maximum SUV of 5.3. Heterogeneous moderate to intense uptake is also noted to the right paratracheal lymph node seen on series 2 image 73, maximum SUV of 3.9, measuring up to 8 mm. Intervally developed amorphous reticular confluent appearing opacities to the posterior right upper lobe and superior segment right lower lobe, demonstrating heterogeneous FDG uptake, maximum SUV of 4.8. Non-diagnostic CT findings: Moderate coronary artery calcification. Moderate thoracic aortic atherosclerosis. Right hilar calcification. ABDOMEN AND PELVIS: Physiologic radiotracer distribution noting for wide range of FDG uptake to bowel.. Carole-bladder artifact, limits evaluation of FDG uptake to adjacent soft tissues. Non-diagnostic CT findings: Scattered coarse calcifications to the liver and spleen, may represent sequelae of granulomatous disease. Moderate aortoiliac atherosclerosis. Photopenia to multiple partially exophytic right renal cysts. Moderate to severe diverticulosis. 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 MUSCULOSKELETAL: Physiologic radiotracer distribution. Non-diagnostic CT findings: None. IMPRESSION: 1. Intervally decreased extent of FDG uptake and FDG avidity to the right hilar mass, maximum SUV of 5.3 on today's examination. Persistent uptake to right paratracheal prominent lymph nodes. Findings likely represent improving but persistent residual disease versus posttreatment changes. 2. Intervally developed amorphous reticular and interstitial confluent appearing opacities to the posterior right upper lobe and superior segment right lower lobe, demonstrating heterogeneous FDG uptake, may represent reactive uptake to posttreatment changes versus infectious or inflammatory process. Recommend attention on follow-up. Electronically signed by: Ebonie Olmos MD 02/18/2024 11:46 AM EDT RP Principal Waste Chopper Name: Ebonie Olmos Provider ID: [id number] PAGE 3 OF 3 CC'ed Logic: Ordering Provider: GAYLE GIMENEZ CC Provider: SHEN HERNADEZ Attending Provider: GAYLE GIMENEZ Referring Provider: GAYLE GIMENEZ Admitting Provider: GAYLE LANDEROS [place], [place] - [facility] & [place] 02/23/2024 15:09:34 Ct, Abdomen + Pelvis, W/o Contrast : [address] [address] (Phone) IMAGING REPORT Name: TERESA URBINA Lizz : 1960 Age: 63 Years Patient Type: Outpatient Sex: F Exam Description: CT CHEST/ABD/PEL NO PO-IV ONLY Exam Reason: malignant neoplasm unspc brochus or lung Order Date/Time: 06/24/2024 02:49:15 PM Dictated By: Luis Rodriguez MD Ordering Physician: PERNELL ARAUJO Attending Physician: PERNELL ARAUJO CT CHEST ABDOMEN PELVIS WITH IV CONTRAST, 06/24/2024 1:49 PM PATIENT FINANCIAL ADVOCATE INDICATION: malignant neoplasm unspc brochus or lung [...] pulmonary emboli. PAGE 1 OF 3 Name: TERESA URBINA : 1960 Age: 63 Years Patient [...] PM [facility] Principal Waste Chopper Name: Luis Rodriguez Provider ID: [id number] PAGE 3 OF 3 CC'ed Logic: Ordering Provider: GAYLE GIMENEZ CC Provider: SHEN HERNADEZ Attending Provider: GAYLE GIMENEZ Referring Provider: GAYLE GIMENEZ Admitting Provider: SAMANTA Price - [facility] - [place] & [place] 06/27/2024 13:59:26 Ct, Chest, W/ Contrast : [address] [address] (Phone) IMAGING REPORT Name: TERESA URBINA : 1960 Age: 63 Years Patient [...] or pneumothorax. PAGE 1 OF 2 Name: TERESA URBINA : 1960 Age: 63 Years Patient Type: Outpatient Sex: F Exam Description: CT CHEST W Exam Reason: [id number] MALIGNANT NEOPLASM OF UNSP PART OF UNSP BRONCHUS OR JOSH Order Date/Time: 08/17/2024 11:58:04 AM HEART & MEDIASTINUM: Mild to moderate coronary calcifications. Normal [...] MD 08/18/2024 04:10 AM EDT RP Principal Waste Chopper Name: Hardik Duff Provider ID: [id number] PAGE 2 OF 2 CC'ed Logic: Ordering Provider: NAT BONILLA CC Provider: SHEN HERNADEZ Attending Provider: NAT BONILLA Referring Provider: NAT BONILLA Admitting Provider: NAT Bush [place], [place] - [facility] [place] 08/18/2024 08:16:46 Problems Name Problem SNOMED Code Status Onset Date Resolution Date Notes Provider Name and Address Organization Details Recorded Time Prieto hematuria 140810286 Active 2021 Catherine Lamb null, [place] - [facility] - [facility] & [place] 09:59:40 Family history of malignant neoplasm 791181844 Active 2021 Maribeth Santos null, [place] - [facility] - [place] & [place] 2 11:12:49 Retention of urine 283949575 Active 2021 Catherine Lamb null, [place] [facility] [place] & [place] 2 10:00:08 Diabetes mellitus 61532424 Active 2021 Maribeth Santos [place], [place] [facility] [place] & [place] 2 11:12:49 Chronic obstructive pulmonary disease 63102138 Active 2021 Maribeth Santos [place], [place] [facility] [place] 2 11:12:49 Hypertensive disorder 53723618 Active 2021 Maribeth barksdale, [place] - [facility] - [place] & [place] 2 11:12:49 Smoker 94319551 Active 2021 Maribeth barksdale, [place] - [facility] - [place] & [place] 2 11:12:49 Urethral caruncle 2177233 Active 2021 Maribeth Santos null, [place] [facility] & [place] 2 11:12:49 Polyp of urethra 76669869 Active 2021 Maribeth barksdale, [place] - [facility] [place] & [place] 2 11:12:49 Atrophic vaginitis 54461299 Active 2021 Maribeth barksdale, [place] [facility] [place] & [place] 2 11:12:49 Cigarette smoker 48297229 Active Maribeth Santos null, [place] [facility] [place] & [place] 2 11:12:49 Family history of malignant neoplasm of kidney 700149070 Active Maribeth Santos null, [place] [facility] & [place] 2 11:12:49 Gastroesophage al reflux disease 777774920 Active 2022 Hafsa Hung null, [place] - [facility] [place] & [place] 3 09:26:51 Chemotherapy-i nduced nausea and vomiting 34846974 Active 2023 Zoey Conti null, [place] - [facility] [place] & [place] 4 14:16:16 Abdominal bloating 136260921 Active 2023 Maribel Overton NP [address], [address], [place], [address], [place] [facility] [place] & [place] 4 09:03:07 Acid reflux 360293021 Active 2023 Maribel Overton NP [address], [address], [place], [address], [place] [facility] [place] & [place] 4 09:03:07 Hyperplastic polyp of large intestine 461394361 Active 2023 Maribel Overton NP [address], [address], [place], [address], [place] [facility] [place] & [place] 4 09:03:07 Multiple renal cysts 444220704 Active 2023 Maribel Overton NP [address], [address], [place], [address], [place] [facility] [place] & [place] 4 09:03:07 Increased body mass index 79144837 Active 2023 Maribel Overton NP [address], [address], [place], [address], [place] [facility] [place] & [place] 4 09:03:08 Diverticular disease of colon 138404135 Active 2023 Maribel Overton NP [address], [address], [place], [address], [place] [facility] [place] & [place] 4 09:03:08 Problem Notes None recorded. Procedures Surgical History Date Name Laterality Status Provider Name and Address Organization Details Recorded Time 07/20/19 25 6 Minute Walk Test completed Mary [place] - [facility] & [place] 07/19/2024 16:16:43 10/26/19 24 removal of implantable venous access port completed Rayne [place] - [facility] & [place] 10/27/2023 08:16:16 09/25/19 24 insertion of implantable venous access port completed Rayne Simental [place] [facility] & [place] 09/28/2023 09:27:25 08/18/19 24 6 Minute Walk Test completed Amanda Tacho [place] - [facility] & [place] 08/18/2023 13:36:17 06/30/19 24 6 Minute Walk Test completed Mary Bush [place] - [facility] [place] 06/30/2023 16:35:48 04/22/20 22 EMG/ Nerve Conduction Study completed Bairon Valente M.D [address], [address], [place], [address], [place] - [facility] & [place] 04/27/2022 18:10:54 04/03/20 22 EMG/ Nerve Conduction Study completed Bairon Valente M.D [address], [address], [place], [address], [place] - [facility] & [place] 04/03/2022 15:01:54 03/24/20 22 Cystoscopy-Fema le completed Vonnie Brian [place] - [facility] - [place] & [place] 03/24/2022 15:46:34 12/03/19 22 Date of Last Pap Smear completed maribeth cabezas [place] - [facility] [place] 06/16/2022 09:02:06 08/07/19 22 completed maribeth cabezas [place] [facility] [place] 06/16/2022 09:02:06 ligation of bilateral fallopian tubes completed Maribeth Larose [place] [facility] & [place] 08/24/2023 10:05:29 procedure on ear completed Maribeth Larose [place] - [facility] & [place] 08/24/2023 10:05:46 Colonoscopy completed Rayne Simental [place] - [place] [facility] [place] 09/17/2023 11:04:05 dental surgical procedure completed Rayne Simental [place] - [facility] - [facility] & [place] 09/17/2023 11:04:15 Imaging Results None recorded. Procedure Notes None recorded. Medical Equipment None Reported. Allergies Allergen ID Allergen Name Allergen Category Reaction Reaction Severity Criticality Documentation Date Start Date Code Code System Note Provider Name and Address Organization Details Recorded Time 52794 Keflex medicatio n Not available Not available Not available 03/21/202229921 7 RxNorm SAMANTA [place] - [place] & [place] 2 09:59:05 75104 meloxicam medicatio n Not available Not available Not available 03/21/2022 43650 RxNorm SAMANTA Smith [facility] - [place] & [place] 2 09:59:13 36308 lisinopri l medicatio n Not available Not available Not available 03/21/2022 [id number] RxNorm SAMANTA [place] - [place] & [place] 2 09:59:22 Medications Name Sig Start Date [...] TAKE 1 TABLET 4 TIMES EACH DAY 2024 active Not Available Not Available Not Avai lable doxycycline hyclate 100 mg capsule TAKE 1 [...] Not Available Not Available No t Available ropinirole 1 mg tablet TAKE 1 TABLET 2 TIMES EACH DAY active Not Available Not Available No t Available ipratropium 0.5 mg-albutero l 3 mg (2.5 mg base)/3 mL nebulizatio n soln INHALE CONTENTS OF 1 VIAL USING A NEBULIZER 4 TIMES EACH DAY active Not Available Not Available No t Available tizanidine 2 mg tablet TAKE 1 TABLET 1 TIME EACH DAY AT BEDTIME active Not Available Not Available No t [...] completed Not Available Not Available Not Available furosemide 20 mg tablet TAKE 1 TABLET 1 TIME EACH DAY FOR 5 DAYS active Not Available Not Available No t Available levofloxaci n 500 mg tablet TAKE [...] Available Premarin 0.625 mg/gram vaginal cream INSERT 05/21 APPLICATO RFUL INTO THE VAGINA 2 TIMES [...] 1 TABLET 1 TIME EACH DAY WITH MEALS active Not Available [...] Not Available Not Available No t Available FeroSul 325 mg (65 mg iron) tablet TAKE 1 TABLET 1 TIME EACH [...] Not Available Dexcom G6 Sensor device USE DIRECTED TO MEASURE BLOOD SUGAR. REPLACE SENSOR EVERY 10 DAYS active Not Available Not Available No t Available Dexcom G6 Welder Fitter USE TO TEST BLOOD SUGAR DIRECTED active [...] and Address Organization Details Last Updated DateTime 5 170.18 cm 38.7 kg/m2 498265. 75 g 98.4 [degF] 94 % 94 % 87 /min 121 mm[Hg] 55 mm[Hg] Paige Puga [facility] 5 10:25:52 Date Recorded Body height Body mass index (BMI) Body weight Body temperature Oxygen saturation Oxygen saturation in Arterial blood by Pulse oximetry Heart rate Systolic blood pressure Diastolic blood pressure Provider Name and Address Organization Details Last Updated DateTime 5 170.18 cm 39.8 kg/m2 911895. 46 g 97.4 [degF] 94 % 94 % 82 /min 130 mm[Hg] 80 mm[Hg] Mary [place] - [place] [facility] [place] 5 15:42:45 Date Recorded Body height Body mass index (BMI) Body weight Oxygen saturation Oxygen saturation in Arterial blood by Pulse oximetry Heart rate Systolic blood pressure Diastolic blood pressure Provider Name and Address Organization Details Last Updated DateTime 4 170.18 cm 33 kg/m2 86575.9 9 g 94 % 94 % 134 /min 98 mm[Hg] 76 mm[Hg] Agustina Bush [facility] & [place] 4 13:10:21 Date Recorded Body height Body mass index (BMI) Body weight Body temperature Oxygen saturation Oxygen saturation in Arterial blood by Pulse oximetry Heart rate Systolic blood pressure Diastolic blood pressure Provider Name and Address Organization Details Last Updated DateTime 4 170.18 cm 36.5 kg/m2 635015. 02 g 97.9 [degF] 94 % 94 % 90 /min 124 mm[Hg] 84 mm[Hg] Mary Carlsonrick [facility] & [place] 4 13:01:46 Date Recorded Body height Body mass index (BMI) Body weight Body temperature Oxygen saturation Oxygen saturation in Arterial blood by Pulse oximetry Heart rate Systolic blood pressure Diastolic blood pressure Provider Name and Address Organization Details Last Updated DateTime 4 170.18 cm 38.1 kg/m2 639375. 31 g 98.1 [degF] 95 % 95 % 91 /min 140 mm[Hg] 60 mm[Hg] Maribeth Larose [facility] & [place] 4 09:19:52 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 Question Answer Notes LastModified by Organizat ion Details LastModified Time Tobacco Smoking Status Former Smoker quit [id number] Maribeth Larose [facility] & [place] 02/08/2024 09:22:44 Do You Have An Advance Directive? No [email or web address] Information not available 04/14/2022 Are You Blind Or Do You Have Difficulty Seeing? No [email or web address] Information not available 06/16/2022 What Is Your Level Of Caffeine Consumption? Occasional [email or web address] Information not available 08/24/2023 What Was The Date Of Your Most Recent Tobacco Screening? 08/24/2023 [email or web address] Information not available 08/24/2023 At What Age Did You Start Smoking Tobacco? 15 [email or web address] Information not available 02/08/2024 Are You Passively Exposed To Smoke? Yes [email or web address] Information not available 06/16/2022 How Much Tobacco Do You Smoke? 1 PPW [email or web address] Information not available 09/28/2023 Has Tobacco Cessation Counseling Been Provided? No [email or web address] Information not available 08/24/2023 How Many Years Have You Smoked Tobacco? 45 Information not available 06/16/2022 Sex: Unknown Functional Status Question Answer Note LastModified by Organizat ion Details LastModified Time Do you use any illicit or recreational drugs? No Information not available 03/21/2022 Do you or have you ever used any other forms of tobacco or nicotine? No Information not available 08/24/2023 What is your level of alcohol consumption? None Information not available 03/21/2022 Do you or have you ever used smokeless tobacco? Never used smokeless tobacco [email or web address] Information not available 04/14/2022 What is your exercise level? None [email or web address] Information not available 06/16/2022 Mental Status Question Answer Note LastModified by Organization D etails LastModified Time Do you feel stressed (tense, restless, nervous, or anxious, or unable to sleep at night)? [id number] [email or web address] Information not available 04/14/2022 Family History Relationship Description Onset Age of this Age Resolved Age Notes LastModified by Organization Details LastModified Time Brother Suspected kidney cancer [email or web address] Not available 07/19 15:03:48 Mother Heart disease Not available 2023 09:28:41 Mother Renal failure syndrome [email or web address] Not available 07/19 15:03:48 Mother Diabetes mellitus [email or web address] Not available 07/19 15:03:48 Mother Mother [email or web address] Not available 07/19 15:03:48 Father Diabetes mellitus [email or web address] Not available 07/19 15:03:48 Father Heart disease [email or web address] Not available 2023 09:29:00 Father Father Not available 07/19 15:03:48 Medical History Condition Response Diabetes Y Obesity Y Other Y Vision or Eye Problems Y Arthritis Y Ear or Hearing Problems Y Cancer Y COPD Y GI Problems Y Lung Disease Y Reflux/GERD Y High Cholesterol Y Hypertension Y Gynecological History Statement/Question Response Abnormal Pap N Date of Last Pap Smear 12/02/2021 Current Control Method Tubal Ligat ion 08/06/2021 Sexually Active? Y Obstetrics History GPAL:G 0 P 0 0 0 0 Past Encounters Encounter ID Performer Location Encounter Start Date Encounter Closed Date Diagnosis/Indication Diagnosis SNOMED-CT Code Diagnosis ICD10 Code Diagnosis Note [id number] Anders Meredith MD [facility] [address] [facility] e [address] [place] [address] 03/24/2022 14:01:00 03/24/2022 16:28:54 Prieto hematuria [id number] R31.0 Family his tory of malignant neoplasm of kidney 217135724 Z80.51 Brother Smoker 34786835 F17.210 Retention of urine 67119 4002 R33.9 Urethral caruncle 870732 3 N36.2 Polyp of urethra 0510090 1 N36.2 Atrophic vaginitis 24819 000 N95.2 [id number] Anders Meredith MD [facility] [address] [facility] [place] [address] 07/22/2022 09:33:10 07/22/2022 10:33:55 Prieto hematuria 135112566 R31.0 Likely due to urethral caruncle Family his tory of malignant neoplasm of kidney 428552847 Z80.51 Brother Smoker 76255199 F17.210 Urethral caruncle 850620 3 N36.2 Polyp of urethra 3838757 1 N36.2 Atrophic vaginitis 34775 000 N95.2 Cyst of kidney 888546692 N28.1 bilateral with Bosniak 2 cysts on the right. Noncomplia nce with treatment 0968288 Z91.199 [id number] Bairon Valente M.D [facility] [address],[facility] [address] [place] [address] 04/03/2022 11:05:57 04/03/2022 11:43:47 Bilateral carpal tunnel syndrome [id number] 6791680 G56.03 Neuralgia 39531758 M79.2 Paresthesia 74877454 R20 .2 [id number] MD JESUS [facility] - [address] [place] [address],[facility] [address] [place] [address] 04/14/2022 09:13:12 04/14/2022 10:02:53 Family history of malignant neoplasm of kidney 437178514 Z80.51 follow with PCP and urologist History of hypertension 133153783 Z86.79 follow with PCP-diet suggest Chronic ob structive pulmonary disease 47917430 J44.9 follow with PCP anti-reflu x measure Nausea 037228465 R11.0 could be secondary to gastropare sis versus reflux. Since reflux symptoms are better with omeprazole 20 mg advise low residue low-fiber 4-5 small meal call gastropare sis informatio n given better diabetic control suggested to prevent gastropare sis from diabetes low carb Mediterran dora diet given meanwhile will give p.r.n. Zofran pill and 2 weeks of Creon since 1 capsule 3 times a day to digest the undigested food in the stomach which is been suspected due to her symptoms given endoscopy further management Abdominal pain 97696444 R10.9 more for bloating she gets discomfort went is bloated although has normal bowel movement she is getting EGD colonoscop y with Dr. Hurley in May advised to keep that appointmen t and come back after the ultrasound the abdomen in 2 3 months Nausea and vomiting 1693 1999 R11.2 [id number] Bairon Valente M.D [facility] [address] [place] [address],[facility] [address] [place] [address] 04/22/2022 10:39:43 04/22/2022 11:47:21 Lumbosacral radiculitis 20891387 M54.17 Hyperesthesia 62283224 R 20.3 [id number] MD JESUS [facility] - [address] [place] [address],[facility] [address] [place] [address] 06/16/2022 08:34:07 06/16/2022 10:33:39 Nausea 164409230 R11.0 could be secondary to gastropare sis versus reflux. Since reflux symptoms are better with omeprazole 20 mg advise low residue low-fiber 4-5 small meal call gastropare sis informatio n given better diabetic control suggested to prevent gastropare sis from diabetes low carb Mediterran dora diet given meanwhile will give p.r.n. Zofran pill and 2 weeks of Creon since 1 capsule 3 times a day to digest the undigested food in the stomach which is been suspected due to her symptoms given endoscopy further management advise change to Protonix and stool restart Creon discuss extensivel y about the gastropare sis diet informatio n counseling given to eat smoothies low residue Decrease in appetite 643 44405 R63.0 small to 4-5 meals a day do 4 hour gastric emptying study and follow-up in 2 3 months prescripti on for Protonix and FiberCon sent Gastroesop hageal reflux disease without esophagitis 708957175 K21.9 his reflux measure discontinu e coffee soda Protonix started has benign fundic polyp Diverticul ar disease of colon 893058881 K57.30 probiotic fiber suggested like FiberCon as she cannot eat enough fiber for the stomach [id number] Gordon Abel MD [facility] - [address] [place] [address],[facility] [address] [place] [address] 09/15/2022 08:59:59 09/15/2022 13:24:46 Nausea 708189453 R11.0 she is trying to follow gastropare sis diet since to help a little bit since gastric emptying was normal sometime does not correlate with symptoms she can have a poor fundic relaxation advise low residue diet p.r.n. Zofran continue PPI for reflux esophagiti s which she is taking H pylori was negative discuss with the patient all this thing Non-alcoho lic fatty liver 742261252 K76.0 continue low carb fatty liver diet Diverticul ar disease of colon 275885390 K57.30 probiotic fiber suggested like FiberCon as she cannot eat enough fiber for the stomach Fundic gla nd polyposis of stomach 982197491 K31.7 benign fundic polyp consider management at this time follow-up in 6 months [id number] Anders Meredith MD [facility] [address] [place] [address] 03/27/2023 11:14:58 03/27/2023 11:42:19 Cyst of kidney 743821191 N28.1 bilateral with Bosniak 2 cysts on the right. Prieto hematuria 92217122 5 R31.0 Likely due to urethral caruncle Family his tory of malignant neoplasm of kidney 288206698 Z80.51 Brother Smoker 05284147 F17.210 Urethral caruncle 303717 3 N36.2 Polyp of urethra 4524170 1 N36.2 Atrophic vaginitis 79309 000 N95.2 Noncomplia nce with treatment 2017181 Z91.199 [id number] Anders Meredith MD [facility] [address] [facility] [address] [place] [address] 05/26/2023 15:54:28 05/26/2023 16:02:14 Cyst of kidney 133520399 N28.1 bilateral with Bosniak 2 cysts on the right. Prieto hematuria 35227675 5 R31.0 Likely due to urethral caruncle Family his tory of malignant neoplasm of kidney 266865191 Z80.51 Brother Smoker 56744007 F17.210 Urethral caruncle 747466 3 N36.2 Polyp of urethra 4229635 1 N36.2 Atrophic vaginitis 88211 000 N95.2 Noncomplia nce with treatment 3063942 Z91.199 [id number] Irene Johns M.D [facility] W - [address] [place] [address] [address] [place] [address] 06/30/2023 14:42:20 06/30/2023 16:27:21 Dyspnea 031208207 R06.00 Nicotine dependence 5629 4008 Z87.891 Gastroesop hageal reflux disease without esophagitis 302628637 K21.9 [id number] Gordon Abel MD [facility] [address] [place] [address] [address] [place] [address] 07/27/2023 13:02:25 07/27/2023 13:59:41 Abdominal bloating 557385484 R14.0 given informatio n on low FODMAP diet along with probiotics Vu colon Health she is going to eliminate food that gives her gas especially certain vegetables she is off pancreatic enzyme if not better will do SIBO breath test with normal gastric emptying study Acid reflux 216827171 K2 1.9 continue PPI anti-reflu x measure weight reduction low acid diet follow-up in 4 months Hyperplast ic polyp of large intestine 832184237 K63.5 with the type of polyp is generally we do 10 years unless symptoms or signs for colonoscop y Multiple renal cysts 253 442234 N28.[address] follow with PCP Increased body mass index 02633639 E66.9 prevent metabolic liver disease advise low carb diet probiotic excess informatio n CHAPMAN in the diet associated with CHAPMAN given Diverticul ar disease of colon 158661166 K57.30 probiotic fiber suggested like FiberCon as she cannot eat enough fiber for the stomach [id number] Irene Johns M.D [facility] [address] [place] [address] 08/05/2023 12:57:43 08/05/2023 14:01:45 Dyspnea 617660325 R06.00 Nicotine dependence 5629 4008 Z87.891 Gastroesop hageal reflux disease without esophagitis 169660460 K21.9 Nodule of lung 936749195 R91.1 [id number] Irene Johns M.D [facility] [address] [place] [address] 08/18/2023 13:04:03 08/18/2023 13:40:14 Dyspnea 129525993 R06.00 Nicotine dependence 5629 4008 Z87.891 Gastroesop hageal reflux disease without esophagitis 549944408 K21.9 Nodule of lung 819697426 R91.1 Small cell carcinoma of lung 584362450 C34.90 [id number] Pernell Araujo MD [facility] [address] [place] [address] 08/24/2023 09:45:34 08/24/2023 10:54:19 Small cell carcinoma of lung 728255881 C34.90 Low-dose lung cancer screening CT on July 31, 2023 with findings right paratrache al lymph node 1.7 cm in size. No axillary mass or adenopathy seen. 1.4 cm hypodense lesion in the right adrenal gland measuring 8 Hounsfield units consistent with benign adenoma. Renal cyst present on the right. No bony destructiv e lesions seen. In the right upper lobe/supra hilar area there is a mass that is 3.7 x 2.3 x 2.9 cm with irregular margins concerning for malignancy . Lung-RADS category 4B. Patient seen by pulmonary medicine and had bronchosco py performed on August 11, 2023. Pathology from August 11, 2023 with station 11 lymph node negative for malignant cells. Station 4 L lymph node negative for malignant cells. Station 7 lymph node negative for malignant cells. Paratrache al mass biopsy positive for small-cell carcinoma. Based on CT scan T2a N0 M0 and stage IB. Possible limited stage small-cell . Discussed need for PET scan and MRI of the brain for full staging. Discussed combined chemoradia tion. Discussed cisplatin with etoposide starting following staging imaging. Cigarette smoker 6149947 7 F17.210 Current smoker. Will address smoking cessation as further imaging performed. Anxiety 42172738 F41.9 Anxiety with MRI. Will add as needed Valium. Will follow-up [id number] Summer Martines PA-C [facility] [address] [facility] [address] 09/07/2023 07:58:02 09/07/2023 09:25:24 Small cell carcinoma of lung 538451428 C34.90 Low-dose lung cancer screening CT on July 31, 2023 with findings right paratrache al lymph node 1.7 cm in size. No axillary mass or adenopathy seen. 1.4 cm hypodense lesion in the right adrenal gland measuring 8 Hounsfield units consistent with benign adenoma. Renal cyst present on the right. No bony destructiv e lesions seen. In the right upper lobe/supra hilar area there is a mass that is 3.7 x 2.3 x 2.9 cm with irregular margins concerning for malignancy . Lung-RADS category 4B. Patient seen by pulmonary medicine and had bronchosco py performed on August 11, 2023. Pathology from August 11, 2023 with station 11 lymph node negative for malignant cells. Station 4 L lymph node negative for malignant cells. Station 7 lymph node negative for malignant cells. Paratrache al mass biopsy positive for small-cell carcinoma. Based on CT scan T2a N0 M0 and stage IB. Possible limited stage small-cell . Discussed need for PET scan and MRI of the brain for full staging. Discussed combined chemoradia tion. Discussed cisplatin with etoposide starting following staging imaging. PET scan on September 01, 2023 and MRI of the brain witgh no evidence of distant metastatic disease. Limited stage small-cell . Will follow-up start of therapy and starting radiation next week. MRI of the brain negative.P alisa presents to clinic on September 07, 2023 for cycle 1 of cisplatin and etoposide with concurrent radiation. Chemothera py education performed. Cigarette smoker 1276630 7 F17.210 Current smoker. Will address smoking cessation as further imaging performed. Anxiety 39671409 F41.9 Anxiety with MRI. Will add as needed Valium. Will follow-up Antineopla stic chemotherapy regimen 835193437 Z51.11 Cycle 1 of etoposide and cisplatin on September 07, 2023. Chemothera py education performed. [id number] DO Franky Phipps General Surgery - [address] [place] [address], [address] [place] [address] 09/17/2023 10:09:43 09/21/2023 10:14:39 Small cell carcinoma of lung 908390651 C34.90 we will schedule her for power port placement at the earliest convenienc e. The procedure, risks and benefits were discussed with her and she agrees to proceed. She will have to stop her aspirin 7 days prior to the procedure. Type 2 munira betes mellitus without complication 035611194 E11.9 we will get a fasting blood sugar preoperati vely. Essential hypertension 02579788 I10 we will get blood work and an EKG preoperati vely [id number] Summer Martines PA-C [facility] [address] [place] [address] 09/28/2023 07:55:54 09/28/2023 08:35:00 Small cell carcinoma of lung 435560791 C34.90 Low-dose lung cancer screening CT on July 31, 2023 with findings right paratrache al lymph node 1.7 cm in size. No axillary mass or adenopathy seen. 1.4 cm hypodense lesion in the right adrenal gland measuring 8 Hounsfield units consistent with benign adenoma. Renal cyst present on the right. No bony destructiv e lesions seen. In the right upper lobe/supra hilar area there is a mass that is 3.7 x 2.3 x 2.9 cm with irregular margins concerning for malignancy . Lung-RADS category 4B. Patient seen by pulmonary medicine and had bronchosco py performed on August 11, 2023. Pathology from August 11, 2023 with station 11 lymph node negative for malignant cells. Station 4 L lymph node negative for malignant cells. Station 7 lymph node negative for malignant cells. Paratrache al mass biopsy positive for small-cell carcinoma. Based on CT scan T2a N0 M0 and stage IB. Possible limited stage small-cell . Discussed need for PET scan and MRI of the brain for full staging. Discussed combined chemoradia tion. Discussed cisplatin with etoposide starting following staging imaging. PET scan on September 01, 2023 and MRI of the brain witgh no evidence of distant metastatic disease. Limited stage small-cell . Will follow-up start of therapy and starting radiation next week. MRI of the brain negative.P atient presents to clinic on September 07, 2023 for cycle 1 of cisplatin and etoposide with concurrent radiation. Chemothera py education performed. Patient presents to clinic on September 28, 2023 for cycle 2 of cisplatin and etoposide with concurrent radiation. Patient tolerated 1st cycle very well and is continuing on with radiation. Patient will also complete whole-brai n prophylact ic radiation after completion concurrent radiation. Cigarette smoker 1180088 7 F17.210 Current smoker. Will address smoking cessation as further imaging performed. Anxiety 65869770 F41.9 Anxiety with MRI. Will add as needed Valium. Will follow-up Antineopla stic chemotherapy regimen 452971326 Z51.11 Cycle 1 of etoposide and cisplatin on September 07, 2023. Chemothera py education performed. Cycle 2 of etoposide and cisplatin on September 28, 2023. [id number] Irene Johns M.D [facility] - [address] [place] [address] [place] [address] 09/29/2023 15:06:32 09/29/2023 16:06:06 Dyspnea 416501973 R06.00 Nicotine dependence 5629 4008 Z87.891 Gastroesop hageal reflux disease without esophagitis 983996241 K21.9 Nodule of lung 215066088 R91.1 Small cell carcinoma of lung 459956623 C34.90 [id number] DO Franky Phipps General Surgery - [address] [place] [address], [address] [place] [address] 10/06/2023 11:13:56 10/07/2023 08:01:43 Postoperative visit 703930946 Z48.89 Status post power port placement she is doing well. She does not need to see me again unless she has a problem. Small cell carcinoma of lung 350022232 C34.90 we discussed that the port can stand for years as long as it is functional and does not become infected. [id number] Pernell Araujo MD [facility] [address] [place] [address] 10/19/2023 07:53:40 10/19/2023 09:32:29 Small cell carcinoma of lung 664718706 C34.90 Low-dose lung cancer screening CT on July 31, 2023 with findings right paratrache al lymph node 1.7 cm in size. No axillary mass or adenopathy seen. 1.4 cm hypodense lesion in the right adrenal gland measuring 8 Hounsfield units consistent with benign adenoma. Renal cyst present on the right. No bony destructiv e lesions seen. In the right upper lobe/supra hilar area there is a mass that is 3.7 x 2.3 x 2.9 cm with irregular margins concerning for malignancy . Lung-RADS category 4B. Patient seen by pulmonary medicine and had bronchosco py performed on August 11, 2023. Pathology from August 11, 2023 with station 11 lymph node negative for malignant cells. Station 4 L lymph node negative for malignant cells. Station 7 lymph node negative for malignant cells. Paratrache al mass biopsy positive for small-cell carcinoma. Based on CT scan T2a N0 M0 and stage IB. Possible limited stage small-cell . Discussed need for PET scan and MRI of the brain for full staging. Discussed combined chemoradia tion. Discussed cisplatin with etoposide starting following staging imaging. PET scan on September 01, 2023 and MRI of the brain witgh no evidence of distant metastatic disease. Limited stage small-cell . Will follow-up start of therapy and starting radiation next week. MRI of the brain negative.P atient presents to clinic on September 07, 2023 for cycle 1 of cisplatin and etoposide with concurrent radiation. Patient returns on October 19, 2023 for cycle 3 of cisplatin and etoposide. Patient has completed radiation therapy. Plan for 4 cycles total. Will plan to repeat imaging in the next few weeks. Will follow-up Cigarette smoker 3374039 7 F17.210 Current smoker. Will address smoking cessation as further imaging performed. Anxiety 27521695 F41.9 Anxiety with MRI. Will add as needed Valium. Will follow-up Antineopla stic chemotherapy regimen 814399365 Z51.11 Cycle 1 of etoposide and cisplatin on September 07, 2023. Chemothera py education performed. Cycle 2 of etoposide and cisplatin on September 28, 2023.Radia tion therapy completed during cycle 2. Cycle 3 of cisplatin and etoposide on October 19, 2023. [id number] Summer Martines PA-C [facility] [address] [facility] [address] 11/09/2023 08:09:17 11/09/2023 08:49:48 Small cell carcinoma of lung 433458862 C34.90 Low-dose lung cancer screening CT on July 31, 2023 with findings right paratrache al lymph node 1.7 cm in size. No axillary mass or adenopathy seen. 1.4 cm hypodense lesion in the right adrenal gland measuring 8 Hounsfield units consistent with benign adenoma. Renal cyst present on the right. No bony destructiv e lesions seen. In the right upper lobe/supra hilar area there is a mass that is 3.7 x 2.3 x 2.9 cm with irregular margins concerning for malignancy . Lung-RADS category 4B. Patient seen by pulmonary medicine and had bronchosco py performed on August 11, 2023. Pathology from August 11, 2023 with station 11 lymph node negative for malignant cells. Station 4 L lymph node negative for malignant cells. Station 7 lymph node negative for malignant cells. Paratrache al mass biopsy positive for small-cell carcinoma. Based on CT scan T2a N0 M0 and stage IB. Possible limited stage small-cell . Discussed need for PET scan and MRI of the brain for full staging. Discussed combined chemoradia tion. Discussed cisplatin with etoposide starting following staging imaging. PET scan on September 01, 2023 and MRI of the brain witgh no evidence of distant metastatic disease. Limited stage small-cell . Will follow-up start of therapy and starting radiation next week. MRI of the brain negative.P atient presents to clinic on September 07, 2023 for cycle 1 of cisplatin and etoposide with concurrent radiation. Patient returns on October 19, 2023 for cycle 3 of cisplatin and etoposide. Patient has completed radiation therapy. Plan for 4 cycles total. Will plan to repeat imaging in the next few weeks. Will follow-up Patient presents to clinic on November 09, 2023 for cycle 4 of cisplatin and etoposide, this patient's last cycle and will move into image surveillan ce. Patient will also be referred for whole-brai n prophylact ic radiation. Patient recently admitted to intensive care unit for septicemia and atrial fibrillati on with RVR. Port-A-Cat h was removed secondary to infection. Patient was also cardiovert ed and is following up with cardiology this week. Will continue with last cycle today. Cigarette smoker 8538390 7 F17.210 Current smoker. Will address smoking cessation as further imaging performed. Anxiety 76274242 F41.9 Anxiety with MRI. Will add as needed Valium. Will follow-up Antineopla stic chemotherapy regimen 851508333 Z51.11 Cycle 1 of etoposide and cisplatin on September 07, 2023. Chemothera py education performed. Cycle 2 of etoposide and cisplatin on September 28, 2023.Radia tion therapy completed during cycle 2.Cycle 3 of cisplatin and etoposide on October 19, 2023.Cycle 4 of cisplatin and etoposide on November 09, 2023. Anemia 141144755 D64.9 Will follow up on labs. [id number] Irene Johns M.D [facility] - [address] [place] [address] [address] [place] [address] 01/25/2024 12:55:29 01/25/2024 13:23:22 Dyspnea 544604104 R06.00 Nicotine dependence 5629 4008 Z87.891 Gastroesop hageal reflux disease without esophagitis 034563007 K21.9 Nodule of lung 097506515 R91.1 Small cell carcinoma of lung 309686262 C34.90 [id number] Pernell Araujo MD [facility] [address] [place] [address] 02/08/2024 09:02:49 02/08/2024 10:29:55 Small cell carcinoma of lung 752911103 C34.90 Low-dose lung cancer screening CT on July 31, 2023 with findings right paratrache al lymph node 1.7 cm in size. No axillary mass or adenopathy seen. 1.4 cm hypodense lesion in the right adrenal gland measuring 8 Hounsfield units consistent with benign adenoma. Renal cyst present on the right. No bony destructiv e lesions seen. In the right upper lobe/supra hilar area there is a mass that is 3.7 x 2.3 x 2.9 cm with irregular margins concerning for malignancy . Lung-RADS category 4B. Patient seen by pulmonary medicine and had bronchosco py performed on August 11, 2023. Pathology from August 11, 2023 with station 11 lymph node negative for malignant cells. Station 4 L lymph node negative for malignant cells. Station 7 lymph node negative for malignant cells. Paratrache al mass biopsy positive for small-cell carcinoma. Based on CT scan T2a N0 M0 and stage IB. Possible limited stage small-cell . Discussed need for PET scan and MRI of the brain for full staging. Discussed combined chemoradia tion. Discussed cisplatin with etoposide starting following staging imaging. PET scan on September 01, 2023 and MRI of the brain witgh no evidence of distant metastatic disease. Limited stage small-cell . Will follow-up start of therapy and starting radiation next week. MRI of the brain negative.P brieient presents to clinic on September 07, 2023 for cycle 1 of cisplatin and etoposide with concurrent radiation. Patient completed 4 cycles of cisplatin and etoposide with radiation therapy. Patient has been in observatio n. Patient returns on February 08, 2024. Repeat labs today. Will repeat imaging. Hopeful continued observatio n only.Discu ssed repeat PET scan versus CT. Patient did not have prophylact ic cranial radiation as she was recovering from sepsis during that timeframe. Patient has MRI [facility] the brain next month at [facility] in [place]. Will follow up evaluation with Radiation Medicine. Cigarette smoker 6400564 7 F17.210 Current smoker. Will address smoking cessation as further imaging performed. Anxiety 63010171 F41.9 Anxiety with MRI. Will add as needed Valium. Will follow-up Antineopla stic chemotherapy regimen 607051698 Z51.11 Cycle 1 of etoposide and cisplatin on September 07, 2023. Chemothera py education performed. Cycle 2 of etoposide and cisplatin on September 28, 2023.Radia tion therapy completed during cycle 2.Cycle 3 of cisplatin and etoposide on October 19, 2023.Cycle 4 of cisplatin and etoposide on November 09, 2023. Idiopathic peripheral neuropathy [id number] G60.9 Patient with history of peripheral neuropathy . Currently on gabapentin 600 mg 4 times a day. Refill for gabapentin sent. [id number] Pernell Araujo MD [facility] Oncology and Hematolog [address] [place] [address] 05/19/2024 10:09:43 05/19/2024 11:23:53 Small cell carcinoma of lung [id number] C34.90 Low-dose lung cancer screening CT on July 31, 2023 with findings right paratrache al lymph node 1.7 cm in size. No axillary mass or adenopathy seen. 1.4 cm hypodense lesion in the right adrenal gland measuring 8 Hounsfield units consistent with benign adenoma. Renal cyst present on the right. No bony destructiv e lesions seen. In the right upper lobe/supra hilar area there is a mass that is 3.7 x 2.3 x 2.9 cm with irregular margins concerning for malignancy . Lung-RADS category 4B. Patient seen by pulmonary medicine and had bronchosco py performed on August 11, 2023. Pathology from August 11, 2023 with station 11 lymph node negative for malignant cells. Station 4 L lymph node negative for malignant cells. Station 7 lymph node negative for malignant cells. Paratrache al mass biopsy positive for small-cell carcinoma. Based on CT scan T2a N0 M0 and stage IB. Possible limited stage small-cell . Discussed need for PET scan and MRI of the brain for full staging. Discussed combined chemoradia tion. Discussed cisplatin with etoposide starting following staging imaging. PET scan on September 01, 2023 and MRI of the brain witgh no evidence of distant metastatic disease. Limited stage small-cell . Will follow-up start of therapy and starting radiation next week. MRI of the brain negative.P atient presents to clinic on September 07, 2023 for cycle 1 of cisplatin and etoposide with concurrent radiation. Patient completed 4 cycles of cisplatin and etoposide with radiation therapy. PET scan performed on February 16, 2024. Comparison with imaging from September 01, 2023. Decreased PET uptake compared to prior study in the chest. In the right hilum there is an SUV focus of 5.3 however does not correspond to any mass lesion. Uptake in the right paratrache al lymph node of 3.9 and paratrache al lymph node measures 8 mm in size. Areas of confluent lymphadeno juaquin seen in the right upper and lower lobe with continued improvemen t. No new evidence of metastatic disease. Patient returns on May 19, 2024. Discussed continued imaging surveillan ce. Will plan for repeat imaging in the next month. Will try CT scan of the chest abdomen pelvis. Will follow up again in another few months. Cigarette smoker [id number] F17.210 Current smoker. Will address smoking cessation as further imaging performed. Anxiety [id number] F41.9 Anxiety with MRI. Will add as needed Valium. Will follow-up Antineopla stic chemotherapy regimen [id number] Z51.11 Cycle 1 of etoposide and cisplatin on September 07, 2023. Chemothera py education performed. Cycle 2 of etoposide and cisplatin on September 28, 2023.Radia tion therapy completed during cycle 2.Cycle 3 of cisplatin and etoposide on October 19, 2023.Cycle 4 of cisplatin and etoposide on November 09, 2023. Idiopathic peripheral neuropathy [id number] G60.9 Patient with history of peripheral neuropathy . Currently on gabapentin 600 mg 4 times a day. Refill for gabapentin sent. [id number] Irene Johns M.D [facility] Pulmonary Medicine [address] [place] [address] 07/19/2024 15:01:50 07/19/2024 16:16:02 Dyspnea [id number] R06.00 Nicotine dependence 5629 [id number] Z87.891 Gastroesop hageal reflux disease without esophagitis [id number] K21.9 Nodule of lung [id number] R91.1 Small cell carcinoma of lung [id number] C34.90 Health Concerns Section Related Observation LastModified by Organization Detai ls LastModified Time None Recorded Concern Status LastModified by Organization Details LastModified Time None Recorded Advance Directives Directive N: Payers Insurance Date Sequence Insurance Name Policy Number Policy Hutson Covered Member ID Hutson Member ID Guarantor Name 05/19/2024 1 [place] [id number] Teresa Urbina [id number] Teresa Urbina 09/10/2024 1 [facility] (MEDICAID REPLACEMENT - HMO) Teresa Urbina [id number] Teresa Urbina Notes Date Note Type Note Provider Name and Address Organization Details Recorded Time 01/25/2024 text/html Patient is a 63 year old female present today for a follow up visit. Patient states she has finished chemotherapy and radiation therapy. Patients states she finished chemotherapy and radiation in October 2023. Patient states she had 40 radiation treatments and 12 chemotherapy treatments. Patient is using symbicort 160 and combivent inhalers and they're working for her. Patient is using rescue inhaler 2-3 times weekly. Patient complains of getting hoarse after having treatments. Irene Johns M.D [address] [place] [address], [address], [place], [address], [facility] - [place] & [place] 01/25/2024 16:26:43 02/08/2024 text/html 63 yo F returns for evaluation of small-cell lung cancer. Patient with prior history of tobacco abuse and had 30 pack-year history of smoking. Low-dose lung cancer screening CT recommended. Low-dose lung cancer screening CT on July 31, 2023 with findings right paratracheal lymph node 1.7 cm in size. No axillary mass or adenopathy seen. 1.4 cm hypodense lesion in the right adrenal gland measuring 8 Hounsfield units consistent with benign adenoma. Renal cyst present on the right. No bony destructive lesions seen. In the right upper lobe/suprahilar area there is a mass that is 3.7 x 2.3 x 2.9 cm with irregular margins concerning for malignancy. Lung-RADS category 4B. Patient seen by pulmonary medicine and had bronchoscopy performed on August 11, 2023. Pathology from August 11, 2023 with station 11 lymph node negative for malignant cells. Station 4 L lymph node negative for malignant cells. Station 7 lymph node negative for malignant cells. Paratracheal mass biopsy positive for small-cell carcinoma. Based on CT scan T2a N0 M0 and stage IB. Possible limited stage small-cell. Discussed need for PET scan and MRI of the brain for full staging. Discussed combined chemoradiation. Discussed cisplatin with etoposide starting following staging imaging. 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 Will follow-up start of therapy and starting radiation next week. MRI of the brain negative.Patient presents to clinic on September 07, 2023 for cycle 1 of cisplatin and etoposide with concurrent radiation. Chemotherapy education performed. Discussed Port-A-Cath placement. Patient would like to proceed. Patient presents to clinic on September 28, 2023 for cycle 2 of cisplatin and etoposide with concurrent radiation. Patient tolerated 1st cycle very well and is continuing on with radiation. Patient will also complete whole-brain prophylactic radiation after completion concurrent radiation. Patient returns on October 19, 2023 for cycle 3 of cisplatin and etoposide. Patient has completed radiation therapy. Plan for 4 cycles total. Will plan to repeat imaging in the next few weeks. Will follow-up Patient presents to clinic on November 09, 2023 for cycle 4 of cisplatin and etoposide, this patient's last cycle and will move into image surveillance. Patient will also be referred for whole-brain prophylactic radiation. Patient recently admitted to intensive care unit for septicemia and atrial fibrillation with RVR. Port-A-Cath was removed secondary to infection. Patient was also cardioverted and is following up with cardiology this week. Patient completed 4 cycles of cisplatin and etoposide with radiation therapy. Patient has been in observation. Patient returns on February 08, 2024. Repeat labs today. Will repeat imaging. Hopeful continued observation only. Pernell Araujo MD [address] [facility], [place], [address], [place] [facility] - [place] & [place] 02/08/2024 10:31:17 05/19/2024 text/html 63 yo F returns for evaluation of small-cell lung cancer. Patient with prior history of tobacco abuse and had 30 pack-year history of smoking. Low-dose lung cancer screening CT recommended. Low-dose lung cancer screening CT on July 31, 2023 with findings right paratracheal lymph node 1.7 cm in size. No axillary mass or adenopathy seen. 1.4 cm hypodense lesion in the right adrenal gland measuring 8 Hounsfield units consistent with benign adenoma. Renal cyst present on the right. No bony destructive lesions seen. In the right upper lobe/suprahilar area there is a mass that is 3.7 x 2.3 x 2.9 cm with irregular margins concerning for malignancy. Lung-RADS category 4B. Patient seen by pulmonary medicine and had bronchoscopy performed on August 11, 2023. Pathology from August 11, 2023 with station 11 lymph node negative for malignant cells. Station 4 L lymph node negative for malignant cells. Station 7 lymph node negative for malignant cells. Paratracheal mass biopsy positive for small-cell carcinoma. Based on CT scan T2a N0 M0 and stage IB. Possible limited stage small-cell. Discussed need for PET scan and MRI of the brain for full staging. Discussed combined chemoradiation. Discussed cisplatin with etoposide starting following staging imaging. 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 Will follow-up start of therapy and starting radiation next week. MRI of the brain negative.Patient presents to clinic on September 07, 2023 for cycle 1 of cisplatin and etoposide with concurrent radiation. Chemotherapy education performed. Discussed Port-A-Cath placement. Patient would like to proceed. Patient presents to clinic on September 28, 2023 for cycle 2 of cisplatin and etoposide with concurrent radiation. Patient tolerated 1st cycle very well and is continuing on with radiation. Patient will also complete whole-brain prophylactic radiation after completion concurrent radiation. Patient returns on October 19, 2023 for cycle 3 of cisplatin and etoposide. Patient has completed radiation therapy. Plan for 4 cycles total. Will plan to repeat imaging in the next few weeks. Will follow-up Patient presents to clinic on November 09, 2023 for cycle 4 of cisplatin and etoposide, this patient's last cycle and will move into image surveillance. Patient will also be referred for whole-brain prophylactic radiation. Patient recently admitted to intensive care unit for septicemia and atrial fibrillation with RVR. Port-A-Cath was removed secondary to infection. Patient was also cardioverted and is following up with cardiology this week. Patient completed 4 cycles of cisplatin and etoposide with radiation therapy. PET scan performed on February 16, 2024. Comparison with imaging from September 01, 2023. Decreased PET uptake compared to prior study in the chest. In the right hilum there is an SUV focus of 5.3 however does not correspond to any mass lesion. Uptake in the right paratracheal lymph node of 3.9 and paratracheal lymph node measures 8 mm in size. Areas of confluent lymphadenopathy seen in the right upper and lower lobe with continued improvement. No new evidence of metastatic disease. Patient returns on May 19, 2024. Discussed continued imaging surveillance. Will plan for repeat imaging in the next month. Will try CT scan of the chest abdomen pelvis. Will follow up again in another few months. Pernell Araujo MD [address] [facility], [place], [address], [facility] - [facility] & [place] 05/19/2024 11:51:12 07/19/2024 text/html Patient is a 63 year [...] time. Patient denies hospitalization for breathing issues. Irene Johns M.D [address] [place] [address], [address], [place], [address], [facility] - [facility] & [place] 07/19/2024 17:02:42 OBGyn Episode No OBEpisode recorded.
--- OUTSIDE RECORDS SUMMARY | 2024-11-15 13:59 | XMS_ITS | Encounter Summary ---
Author Organization Healthcare Address [address] [place] [address] Care Team Providers Care Lithographic Plate Maker Name Role Phone Laurie Gutierrez MD Primary Care Provider [phone] Joshua Martínez MD Unavailable Encounter Details Date Type Department Care Team (Late st Contact Info) Description 11/07/2024 Orders Only [facility] Radiation [id number] [place] [address] Radiation Oncology, Physician, [facility] [place] [address] 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 Tobacco Use Types Packs/Day Years [...] in the past [address] [facility], were you homeless or living in [...] in the past [address] [facility], were you homeless or living in [...] drink first t laurie in the morning (EYE-MEDICAL PRACTICE ADMINISTRATOR) to steady your nerves or to get [...] Respiratory [address] [facility], [address]nd [place] [address] 11/29/2024 11:00 AM EDT Office Visit [facility] CC Head, Neck & Respiratory [address] [facility], [address]nd [place] [address] Satnam Colvin MD [address] [facility] Nuria Degroot [facility] [address] [place] [address] 11/29/2024 12:30 PM EDT Appointment [facility] [address] [place] [address] 11/30/2024 1:30 PM EDT Appointment [facility] 1 [address] [place] [address] 12/01/2024 2:00 PM EDT Appointment [facility] 1 [address] [place] [address] 12/06/2024 11:40 AM EDT Appointment [facility] Radiation [address] [id number] [place] [address] Haven Blum, CHARGE PREPARATION TECHNICIAN [address] [facility] [address] [place] [address] 01/19/2025 9:30 AM EDT Appointment [facility] S Radiology [address], [address] [place] [address] 01/19/2025 10:45 AM EDT Office Visit [place] [facility] [address], [address] [place] [address] Abhilash Bangura MD [address] [place] [address] 03/08/2025 1:00 PM EDT Office Visit [facility] [place] [facility] [address] [place] [address] Teresita Oconnell MD [address] [place] [address] documented as of this encounter Procedures Procedure Name Priority Date/Time Associated Diagnosis Comments RAD ONC ARIA COURSE SUMMARY Routine 11/07/2024 2:16 PM EDT documented in this encounter Results * Rad Onc Aria Course Summary (11/07/2024 2:16 PM EDT) Course ID C1 ARIA RADIATION ONCOLOGY Course Intent Palliative ARIA RADIATION ONCOLOGY Course Start Date 09/26/2024 1:36 PM ARIA RADIATION ONCOLOGY Course End Date 11/07/2024 2:16 PM ARIA RADIATION ONCOLOGY Course First Treatment Date 10/24/2024 12:01 PM ARIA RADIATION ONCOLOGY Course Last Treatment Date 11/07/2024 12:37 PM ARIA RADIATION ONCOLOGY Course Elapsed Days 14 ARIA RADIATION ONCOLOGY Reference Point ID Brain WBRT ARIA RADIATION ONCOLOGY Reference Point Dosage Given to Date 30 Gy ARIA RADIATION ONCOLOGY Plan ID [id number] ARIA RADIATION ONCOLOGY Plan Name [id number] ARIA RADIATION ONCOLOGY Plan Fractions Treated to Date 10 ARIA RADIATION ONCOLOGY Plan Total Fractions Prescribed 10 ARIA RADIATION ONCOLOGY Plan Prescribed Dose Per Fraction 3 Gy ARIA RADIATION ONCOLOGY Plan Total Prescribed Dose 3,000 CGy ARIA RADIATION ONCOLOGY Plan Primary Reference Point Brain WBRT ARIA RADIATION ONCOLOGY 11/07/2024 2:16 PM EDT Physician Radiation Oncology RADIATION ONCOLO GY ORDERABLES Final Result ARIA RADIATION ONCOLOGY documented in this encounter Visit Diagnoses Not on filedocumented in this encounter Additional Health Concerns Infection Onset Date Last Indicated Resolved Time 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, REFRIGERATION LEAD Panic 10/26/2024 10/31/2024 Assessment Noted Time PHQ-9 Depression Total Score: 0 09/01/19 3:26 PM EDT A fall risk assessment has been complete d for the patient 10/06/2024 2:29 PM EDT A Body Mass Index follow-up plan has been documented for the patient 10/31/2024 4:09 PM EDT documented as of this encounter Care Teams Lithographic Plate Maker Relationship Specialty Start Date End Date Laurie Gutierrez MD [address] [place] [address] PCP - General 12/09/23 Joshua Martínez MD [address] [place], [place] [address]D [place] [address] Consulting Physician Radiation Oncology 09/19/24 documented as of this encounter
--- OUTSIDE RECORDS SUMMARY | 2024-11-15 13:59 | XMS_ITS | Encounter Summary ---
Author Organization Healthcare Address [address] [place] [address] Care Team Providers Care Steam Press Tender Name Role Phone Laurie Gutierrez MD Primary Care Provider [phone] Joshua Martínez MD Unavailable Encounter Details Date Type Department Care Team (Latest Contact Info) Description 11/08/2024 Travel 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 Tobacco Use Types Packs/Day [...] in the past 12 m [facility], were you homeless or living in [...] in the past 12 m [facility], were you homeless or living in [...] drink first t laurie in the morning (EYE-MICROPHONE OPERATOR) to steady your nerves or to get rid of a hangover? 0 10/27/2024 CAGE Questionnaire Score 0 025 Utilities Answer Date Recorded In the past 12 months has [employer], gas, oil, or water company threatened to [...] Kasandra Riley documented as of this encounter Plan of Treatment Upcoming Encounters Date Type Department Care Team (Abhilash st Contact Info) Description 11/29/2024 10:30 AM EDT Clinical Support [facility] Head, Neck & Respiratory [address] [facility], 2nd [place] [address] 11/29/2024 11:00 AM EDT Office Visit [facility] Head, Neck & Respiratory [address] [facility], 2nd [place] [address] Satnam Colvin MD [address] [facility] Nuria [address] [place] [address] 11/29/2024 12:30 PM EDT Appointment [facility] 1 [address] [place] [address] 11/30/2024 1:30 PM EDT Appointment [facility] 1 [address] [place] [address] 12/01/2024 2:00 PM EDT Appointment [facility] 1 [address] [place] [address] 12/06/2024 11:40 AM EDT Appointment [facility] Radiation [address] [facility]. [address]T [place] [address] Haven Blum, DIRECTOR OF TEENAGE ACTIVITIES [address] [facility] [address] [place] [address] 01/19/2025 9:30 AM EDT Appointment [facility] S Radiology [address], [address]st [place] [address] 01/19/2025 10:45 AM EDT Office Visit [place] [facility] [address], [address]st [place] [address] Abhilash Bangura MD [address] [place] [address] 03/08/2025 1:00 PM EDT Office Visit [facility] [place] [facility] [address] [facility]. 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, SLIP OPERATOR Panic 10/26/2024 10/31/2024 Assessment Noted Time PHQ-9 Depression Total Score: 0 09/01/19 25 3:26 PM EDT A fall risk assessment has been complete d for the patient 11/08/2024 2:02 PM EDT A Body Mass Index follow-up plan has been documented for the patient 11/08/2024 5:14 PM EDT documented as of this encounter Care Teams Steam Press Tender Relationship Specialty Start Date End Date Laurie Gutierrez MD [address] [place] [address] PCP - General 12/09/23 Joshua Martínez MD [address] [place] [phone] Consulting Physician Radiation Oncology 09/19/24 documented as of this encounter
--- OUTSIDE RECORDS SUMMARY | 2024-11-15 13:59 | XMS_ITS | Encounter Summary ---
Author Organization Healthcare Address [address] [place] [address] Care Team Providers Care Uniform Room Attendant Name Role Phone Laurie Gutierrez MD Primary Care Provider [phone] Joshua Martínez MD Unavailable Encounter Details Date Type Department Care Team (Late st Contact Info) Description 11/07/2024 Orders Only [facility] Radiation [id number] [place] [address] Radiation Oncology, Physician, [facility] [place] [address] 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 Tobacco Use Types Packs/Day Years [...] Have you had a drink first t laruie in the morning (EYE-BELT MAKER) to steady your nerves or to [...] & Respiratory [address] [facility], [address]nd [place] [address] 11/29/2024 11:00 AM EDT Office Visit [facility] CC Head, Neck & Respiratory [address] [facility], [address] [place] [address] Satnam Colvin MD [address] [facility] Nuria Deg[address] [facility] [address] [place] [address] 11/29/2024 12:30 PM EDT Appointment [facility] [address] [place] [address] 11/30/2024 1:30 PM EDT Appointment [facility] 1 [address] [place] [address] 12/01/2024 2:00 PM EDT Appointment [facility] 1 [address] [place] [address] 12/06/2024 11:40 AM EDT Appointment [facility] Radiation [address] [id number] [place] [address] Haven Blum, FINISHED CLOTH CHECKER [address] [facility] [address] [place] [address] 01/19/2025 9:30 AM EDT Appointment [facility] S Radiology [address], [address] [place] [address] 01/19/2025 10:45 AM EDT Office Visit [place] [facility] [address], [address] [place] [address] Abhilash Bangura MD [address] [place] [address] 03/08/2025 1:00 PM EDT Office Visit [facility] [place] [address] [place] [address] Teresita Oconnell MD [address] [place] [address] documented as of this encounter Procedures Procedure Name Priority Date/Time Associated Diagnosis Comments RAD ONC ARIA SESSION SUMMARY Routine 11/07/2024 12:40 PM EDT documented in this encounter Results * Rad Onc Aria Session Summary (11/07/2024 12:40 PM EDT) Course ID C1 ARIA RADIATION [...] to Date 30 Gy ARIA RADIATION ONCOLOGY Reference Point Session [...] Point Brain WBRT ARIA RADIATION ONCOLOGY 11/07/2024 12:4 0 PM EDT Physician Radiation Oncology MD RADIATION ONCOLO GY ORDERABLES Final Result ARIA RADIATION ONCOLOGY documented in this encounter Visit Diagnoses Not on filedocumented in this encounter Additional Health Concerns Infection Onset Date Last Indicated Resolved Time 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, INDUSTRIAL PROPERTY APPRAISER Panic 10/26/2024 10/31/2024 Assessment Noted Time PHQ-9 Depression Total Score: 0 09/01/19 3:26 PM EDT A fall risk assessment has been complete d for the patient 10/06/2024 2:29 PM EDT A Body Mass Index follow-up plan has been documented for the patient 10/31/2024 4:09 PM EDT documented as of this encounter Care Teams Uniform Room Attendant Relationship Specialty Start Date End Date Laurie Gutierrez MD [address] [place] [address] PCP - General 12/09/23 Joshua Martínez MD [address] [place], [place] [address] [place] [address] Consulting Physician Radiation Oncology 09/19/24 documented as of this encounter
--- OUTSIDE RECORDS SUMMARY | 2024-11-15 14:00 | XMS_ITS | Encounter Summary ---
Author Organization Healthcare Address [address] [place] [address] Care Team Providers Care Combined Rail Operator Name Role Phone Laurie Gutierrez MD Primary Care Provider [phone] Joshua Martínez MD Unavailable Encounter Details Date Type Department Care Team (Latest Contact Info) Description 11/09/2024 Travel 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 Tobacco Use Types Packs/Day [...] in the past 12 m [facility], were you homeless or living [...] in the past 12 m [facility], were you homeless or living [...] drink first t laurie in the morning (EYE-ENTRY WRITER) to steady your nerves or to get rid of a hangover? 0 10/27/2024 CAGE Questionnaire Score 0 025 Utilities Answer Date Recorded In the past 12 months has [employer], gas, oil, or water company threatened to shut off services in your home? No 10/26/2024 Comments No Sex and Gender Information Value Date Recorded Sex Assigned at Not on file Legal Sex Female 8:32 PM EDT Gender Identity Not on file Sexual Orientation Not on file documented as of this encounter Plan of Treatment Upcoming Encounters Date Type Department Care Team ([facility] Contact Info) Description 11/29/2024 10:30 AM EDT Clinical Support [facility] Respiratory [address] [facility], [address] [place] [address] 11/29/2024 11:00 AM EDT Office Visit [facility] Head[facility]ck [facility] Respiratory [address] [facility], 2nd [place] [address] Satnam Colvin MD [address] [facility] Nuria Degroot [facility] 134 [place] [address] 11/29/2024 12:30 PM EDT Appointment [facility] 1 [address] [place] [address] 11/30/2024 1:30 PM EDT Appointment [facility] 1 [address] [place] [address] 12/01/2024 2:00 PM EDT Appointment [facility] 1 [address] [place] [address] 12/06/2024 11:40 AM EDT Appointment [facility] CC Radiation [address] [place] [address] Haven Blum, HIGH SCHOOL MUSIC INSTRUCTOR [address] [facility] [address] [place] [address] 01/19/2025 9:30 AM EDT Appointment PAV S Radiology [address], 1st [place] [address] 01/19/2025 10:45 AM EDT Office [facility] [place] [facility] [address], 1st [place] [address] Abhilash Bangura MD [address] [place] [address] 03/08/2025 1:00 PM EDT Office Visit [facility] [place] [facility] [address] 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, BLEACH MIXER Panic 10/26/2024 10/31/2024 Assessment Noted Time PHQ-9 Depression Total Score: 0 09/01/19 25 3:26 PM EDT A fall risk assessment has been complete d for the patient 11/09/2024 2:52 PM EDT A Body Mass Index follow-up plan has been documented for the patient 11/08/2024 5:14 PM EDT documented as of this encounter Care Teams Combined Rail Operator Relationship Specialty Start Date End Date Laurie Gutierrez MD [address] [place] [address] PCP - General 12/09/23 Joshua Martínez MD [address] [place] [address] [address] [place] [address] Consulting Physician Radiation Oncology 09/19/24 documented as of this encounter
--- OUTSIDE RECORDS SUMMARY | 2024-11-15 14:00 | XMS_ITS | Encounter Summary ---
Author Organization Healthcare Address [address] [place] [address] Care Team Providers Care Rotating Equipment Specialist Name Role Phone Laurie Gutierrez MD Primary Care Provider [phone] Joshua Martínez MD Unavailable Reason for Visit * Reason Comments Resource Navigation Encounter Details Date Type Department Care Team (Late st Contact Info) Description 11/02/2024 Social Work Psych Oncology [address] [place] [address] Mariah Rowley 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 Tobacco Use Types [...] drink first t laurie in the morning (EYE-LOBBY PORTER) to steady your nerves or to get rid of a hangover? 0 10/27/2024 CAGE Questionnaire Score 0 025 Utilities Answer Date Recorded In the past 12 months has th [employer], gas, oil, or water company threatened to shut off services in your home? No 10/26/2024 Comments No Sex and Gender Information Value Date Recorded Sex Assigned at Not on file Legal Sex Female 8:32 PM EDT Gender Identity Not on file Sexual Orientation Not on file documented as of this encounter Miscellaneous Notes * Progress Notes - Mariah Rowley - 11/02/2024 3:18 PM EDT Encounter Type: Phone Call Disease Status: Established Patient Clinic Location: [facility] Disease Type: Lung & Bronchus, Brain & Other Nervous System Services Provided: Clinical Navigation Education Provided: Lodging Intervention Level: 3 Units (1 unit = 15 minutes): 2 Narrative: TRAFFIC TECHNICIAN received phone call from pt asking about having lodging extended for upcoming tx. Pt currently staying at through 11/10 as arranged by inpatient CM prior to dc. Per pt's sister, pt's tx is to be extended. CM attempted to explain that pt's appts only go until 11/10 but pt's sister adamant that pt will be going for several more treatments. TRAFFIC TECHNICIAN explained that there is a different scheduling system for radiation appts and that TRAFFIC TECHNICIAN would need to reach out to rad med team in order to clarify new appt dates before setting up any new lodging. Pt's sister agreeable to receiving phone call once clarification received. TRAFFIC TECHNICIAN currently waiting to hear back from care team about whether or not pt's appts being extended past 11/10. No further needs identified. TRAFFIC TECHNICIAN to remain available for any ongoing needs or support. Mariah Rowley, OBGYN HOSPITALIST PHYSICIAN, TRAFFIC TECHNICIAN [facility] Psych-Oncology Services documented in this encounter Plan of Treatment Upcoming Encounters Date Type Department Care Team (Late st Contact Info) Description 11/29/2024 10:30 AM EDT Clinical Support Pav [facility] Head, Neck & Respiratory [address] [facility], 2nd [place] [address] 11/29/2024 11:00 AM EDT Office Visit Pav CC Head, Neck & Respiratory [address] [facility], [address]nd [place] [address] Satnam Colvin MD [address] [facility] Nuria Degroot [facility] [address] [place] [address] 11/29/2024 12:30 PM EDT Appointment [facility] 1 [address] [place] [address] 11/30/2024 1:30 PM EDT Appointment [facility] 1 [address] [place] [address] 12/01/2024 2:00 PM EDT Appointment [facility] 1 [address] [place] [address] 12/06/2024 11:40 AM EDT Appointment P[facility] CC Radiation [address] [facility]. [address] [place] [address] Haven Blum, TRAVELERS' AID WORKER 800 [facility] [address] [place] [address] 01/19/2025 9:30 AM EDT Appointment PAV S Radiology [address], 1st [place] [address] 01/19/2025 10:45 AM EDT Office Visit [place] [facility] [address], 1st [place] [address] Abhilash Bangura MD [address] [place] [address] 03/08/2025 1:00 PM EDT Office Visit [facility] [place] 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, FLOOR SERVICE WORKER SPRING Panic 10/26/2024 10/31/2024 Assessment Noted Time PHQ-9 Depression Total Score: 0 09/01/19 25 3:26 PM EDT A fall risk assessment has been complete d for the patient 10/06/2024 2:29 PM EDT A Body Mass Index follow-up plan has been documented for the patient 10/31/2024 4:09 PM EDT documented as of this encounter Care Teams Rotating Equipment Specialist Relationship Specialty Start Date End Date Laurie Gutierrez MD [address] [place] [address] PCP - General 12/09/23 Joshua Martínez MD [address] [place] [address] Consulting Physician Radiation Oncology 09/19/24 documented as of this encounter
--- OUTSIDE RECORDS SUMMARY | 2024-11-15 14:00 | XMS_ITS | Encounter Summary ---
Author Organization Healthcare Address [address] [place] [address] Care Team Providers Care Building Maintenance Technician Name Role Phone Laurie Gutierrez MD Primary Care Provider [phone] Joshua Martínez MD Unavailable Encounter Details Date Type Department Care Team (Late st Contact Info) Description 11/02/2024 Orders Only [facility] CC Radiation [id number] [place] [address] Radiation Oncology, Physician, [facility] [place] [address] 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 Tobacco Use Types Packs/Day Years [...] any time in the past 12 m [facility], were you homeless or living in [...] any time in the past 12 m [facility], were you homeless or living in [...] drink first t laurie in the morning (EYE-INSTRUMENTS SALES REPRESENTATIVE) to steady your nerves or to [...] [facility] Respiratory [address] [address] 11/29/2024 11:00 AM EDT Office Visit [facility] Head[facility]ck [facility] Respiratory [address] [address] Satnam Colvin MD 800 [facility] N[facility] [address] [place] [address] 11/29/2024 12:30 PM EDT Appointment [facility] 1 [address] [place] [address] 11/30/2024 1:30 PM EDT Appointment [facility] 1 [address] [place] [address] 12/01/2024 2:00 PM EDT Appointment [facility] [address] [place] [address] 12/06/2024 11:40 AM EDT Appointment [facility] CC Radiation [address] [place] [address] Haven Blum, ECONOMICS ANALYST [address] [place] [address] 01/19/2025 9:30 AM EDT Appointment P[facility] S Radiology [address], 1st [place] [address] 01/19/2025 10:45 AM EDT Office Visit [place] [facility] [address], 1st [place] [address] Abhilash Bangura MD [address] [place] [address] 03/08/2025 1:00 PM EDT Office Visit [facility] [place] [address] [place] [address] Teresita Oconnell MD [address] [place] [address] documented as of this encounter Procedures Procedure Name Priority Date/Time Associated Diagnosis Comments RAD ONC ARIA SESSION SUMMARY Routine 11/02/2024 11:20 AM EDT documented in this encounter Results * Rad Onc Aria Session Summary (11/02/2024 11:20 AM EDT) Course ID C1 ARIA RADIATION ONCOLOGY Course Intent Palliative ARIA RADIATION ONCOLOGY Course Start Date 09/26/2024 1:36 PM [facility] RADIATION ONCOLOGY Course First Treatment Date 10/24/2024 12:01 PM [facility] RADIATION ONCOLOGY Course Last Treatment Date 11/02/2024 11:17 AM [facility] RADIATION ONCOLOGY Course Elapsed Days 9 [facility] RADIATION ONCOLOGY Reference Point ID Brain WBRT [facility] RADIATION ONCOLOGY Reference Point Dosage Given to Date 24 Gy [facility] RADIATION ONCOLOGY Reference Point Session Dosage Given 3 Gy [facility] RADIATION ONCOLOGY Plan ID [id number] ARIA RADIATION ONCOLOGY Plan Name Brain WBRT_PTV [facility] RADIATION ONCOLOGY Plan Fractions Treated to Date 8 ARIA RADIATION ONCOLOGY Plan Total Fractions Prescribed 10 ARIA RADIATION ONCOLOGY Plan Prescribed Dose Per Fraction 3 Gy ARIA RADIATION ONCOLOGY Plan Total Prescribed Dose 3,000 CGy ARIA RADIATION ONCOLOGY Plan Primary Reference Point Brain WBRT ARIA RADIATION ONCOLOGY 11/02/2024 11:2 0 AM EDT Physician Radiation Oncology RADIATION ONCOLO GY ORDERABLES Final Result ARIA RADIATION ONCOLOGY documented in this encounter Visit Diagnoses Not on filedocumented in this encounter Additional Health Concerns Infection Onset Date Last Indicated Resolved Time 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, 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 Panic 10/26/2024 10/31/2024 Assessment Noted Time PHQ-9 Depression Total Score: 0 09/01/19 25 3:26 PM EDT A fall risk assessment has been complete d for the patient 10/06/2024 2:29 PM EDT A Body Mass Index follow-up plan has been documented for the patient 10/31/2024 4:09 PM EDT documented as of this encounter Care Teams Building Maintenance Technician Relationship Specialty Start Date End Date Laurie Gutierrez MD [address] [place] [address] PCP - General 12/09/23 Joshua Martínez MD [address] [place] [address] Consulting Physician Radiation Oncology 09/19/24 documented as of this encounter
--- OUTSIDE RECORDS SUMMARY | 2024-11-15 14:00 | XMS_ITS | Encounter Summary ---
Author Organization Healthcare Address [address] [place] [address] Care Team Providers Care Retail Marketing Coordinator Name Role Phone Paola Hyde APRN Primary Care Provider [phone] Laurie Gutierrez MD Primary Care Provider [phone] Joshua Martínez MD Unavailable Jasmina Smith LPN Unavailable Unavailable Encounter Details Date Type Department Care Team (Late Contact Info) Description 07/31/2023 Orders Only External Location [address] [place] [address] Provider, External 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 Tobacco Use Types Packs/Day Years Used Date Smoking Tobacco: Former Alcohol Use Standard Drinks/Week Comments No 0 (1 standard drink = 0.6 oz pur e alcohol) Comments Unknown Sex and Gender Information Value Date Recorded Sex Assigned at Not on file Legal Sex Female 8:32 PM EDT Gender Identity Not on file Sexual Orientation Not on file documented as of this encounter Plan of Treatment Upcoming Encounters Date Type Department Care Team (Late Contact Info) Description 11/29/2024 10:30 AM EDT Clinical Support Pav [facility] Head, Neck & Respiratory [address] [facility], 2nd [place] [address] 11/29/2024 11:00 AM EDT Office Visit Pav CC Head, Neck & Respiratory [address] [facility], 2nd [place] [address] Satnam Colvin MD [address] [facility] [address] [address] 11/29/2024 12:30 PM EDT Appointment [facility] 1 [address] [place] [address] 11/30/2024 1:30 PM EDT Appointment [facility] 1 [address] [place] [address] 12/01/2024 2:00 PM EDT Appointment [facility] 1 [address] [place] [address] 12/06/2024 11:40 AM EDT Appointment P[facility] CC Radiation [address] [facility]. [id number] [place] [address] Haven Blum, DOWELING MACHINE OPERATOR [address] [facility] [address] [place] [address] 01/19/2025 9:30 AM EDT Appointment PAV S Radiology [address], 1st [place] [address] 01/19/2025 10:45 AM EDT Office Visit [place] [facility] [address], 1st [place] [address] Abhilash Bangura MD [address] [place] [address] 03/08/2025 1:00 PM EDT Office Visit [facility] [place] [address] [place] [address] Teresita Oconnell MD [address] [place] [address] documented as of this encounter Procedures Procedure Name Priority Date/Time Associated Diagnosis Comments CT OUTSIDE IMAGES 07/31/2023 3:21 PM EDT documented in this encounter Results * CT OUTSIDE IMAGES (07/31/2023 3:21 PM EDT) Anatomical Region Laterality Modality Computed Tomogra phy 07/31/2023 3:21 PM EDT us External Provider IMG CT PROCEDURES Final Result documented in this encounter Visit Diagnoses Not on filedocumented in this encounter Additional Health Concerns Infection Onset Date Last Indicated Resolved Time Respiratory Rule-Out 10/12/2024 10/12/2024 025 7:53 PM EDT Meningitis Rule-Out 10/14/2024 10/14/2024 10/15/19 11:54 AM EDT COVID-19 Rule-Out 10/25/2024 10/25/2024 10/25/2024 12:13 PM EDT Respiratory Rule-Out 10/25/2024 10/25/2024 025 3:07 PM EDT 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
--- OUTSIDE RECORDS SUMMARY | 2024-11-15 14:00 | XMS_ITS | Encounter Summary ---
Author Organization Healthcare Address [address] [place] [address] Care Team Providers Care Heat And Frost Insulator Name Role Phone Laurie Gutierrez MD Primary Care Provider [phone] Joshua Martníez MD Unavailable Encounter Details Date Type Department Care Team (Latest Contact Info) Description 11/07/2024 Travel 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 Tobacco Use Types Packs/Day [...] any time in the past 12 m [facility], were you homeless or [...] any time in the past 12 m [facility], were you homeless or [...] drink first t laurie in the morning (EYE-INTERACTIVE MEDIA PROJECT MANAGER) to steady your nerves or to get rid of a hangover? 0 10/27/2024 CAGE Questionnaire Score 0 025 Utilities Answer Date Recorded In the past 12 months has [employer], gas, oil, or water company threatened to shut off services in your home? No 10/26/2024 Comments No Sex and Gender Information Value Date Recorded Sex Assigned at Not on file Legal Sex Female 8:32 PM EDT Gender Identity Not on file Sexual Orientation Not on file documented as of this encounter Plan of Treatment Upcoming Encounters Date Type Department Care Team ([facility] Contact Info) Description 11/29/2024 10:30 AM EDT Clinical Support Pav CC Head, Neck & Respiratory [address] [facility], 2nd [place] [address] 11/29/2024 11:00 AM EDT Office Visit Pav CC Head, Neck & Respiratory [address] [facility], 2nd [place] [address] Satnam Colvin MD 800 [facility] Nuria Contehrickson [facility] 134 [place] [address] 11/29/2024 12:30 PM EDT Appointment [facility] 1 [address] [place] [address] 11/30/2024 1:30 PM EDT Appointment [facility] 1 [address] [place] [address] 12/01/2024 2:00 PM EDT Appointment [facility] [address] [place] [address] 12/06/2024 11:40 AM EDT Appointment P[facility] CC Radiation [id number] [place] [address] Haven Blum, ORCHID TRANSPLANTER [address] [place] [address] 01/19/2025 9:30 AM EDT Appointment PAV S Radiology [address], 1st [place] [address] 01/19/2025 10:45 AM EDT Office Visit [place] [facility] [address], [address]st [place] [address] Abhilash Bangura MD [address] [place] [address] 03/08/2025 1:00 PM EDT Office Visit [facility] [place] 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 Panic 10/26/2024 10/31/2024 Assessment Noted Time PHQ-9 Depression Total Score: 0 09/01/19 25 3:26 PM EDT A fall risk assessment has been complete d for the patient 10/06/2024 2:29 PM EDT A Body Mass Index follow-up plan has been documented for the patient 10/31/2024 4:09 PM EDT documented as of this encounter Care Teams Heat And Frost Insulator Relationship Specialty Start Date End Date Laurie Gutierrez MD [address] [place] [address] PCP - General 12/09/23 Joshua Martínez MD [address] [place], [place] [address]D [place] [phone] Consulting Physician Radiation Oncology 09/19/24 documented as of this encounter
--- OUTSIDE RECORDS SUMMARY | 2024-11-15 14:00 | XMS_ITS | Encounter Summary ---
Author Organization Healthcare Address [address] [place] [address] Care Team Providers Care Block Tester Name Role Phone Laurie Gutierrez MD Primary Care Provider [phone] Joshua Martínez MD Unavailable Reason for Visit * Reason Comments Resource Navigation Encounter Details Date Type Department Care Team (Late st Contact Info) Description 11/04/2024 Social Work Psych Oncology [address] [place] [address] Mariah Rowley 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 Tobacco Use Types [...] any time in the past 12 m [facility], were you homeless [...] any time in the past 12 m [facility], were you homeless [...] drink first t laurie in the morning (EYE-BATTERY CHARGER CONVEYOR LINE) to steady your nerves or to get rid of a hangover? 0 10/27/2024 CAGE Questionnaire Score 0 025 Utilities Answer Date Recorded In the past 12 months has th [employer], gas, oil, or water company threatened to shut off services in your home? No 10/26/2024 Comments No Sex and Gender Information Value Date Recorded Sex Assigned at Not on file Legal Sex Female 8:32 PM EDT Gender Identity Not on file Sexual Orientation Not on file documented as of this encounter Miscellaneous Notes * Progress Notes - Mariah Rowley - 11/04/2024 9:08 AM EDT Encounter Type: Phone Call Disease Status: Established Patient Clinic Location: [facility] Disease Type: Lung & Bronchus, Brain & Other Nervous System Services Provided: Clinical Navigation Education Provided: Lodging Intervention Level: 2 Units (1 unit = 15 minutes): 1 Narrative: WIRELESS FIELD TECHNICIAN reached out to pt to discuss the possibility of extending pt's lodging. WIRELESS FIELD TECHNICIAN informed pt that, after discussing appt dates with pt's care team, that lodging cannot be extended. WIRELESS FIELD TECHNICIAN informed pt that pt's last rad tx is on 11/07 and last infusion on 11/10 and because of this pt's current stay at cannot be extended. Pt voiced understanding and appreciation for the assistance. No further needs identified. WIRELESS FIELD TECHNICIAN to remain available for any ongoing needs or support. NAVEED Ashley, WIRELESS FIELD TECHNICIAN [facility] Psych-Oncology Services documented in this encounter Plan of Treatment Upcoming Encounters Date Type Department Care Team (Late st Contact Info) Description 11/29/2024 10:30 AM EDT Clinical Support [facility] [address] [facility], [address]nd [place] [phone] 11/29/2024 11:00 AM EDT Office Visit [facility] [address] [facility], [address]nd [place] [address] Satnam Colvin MD [address] [facility] [address] [place] [address] 11/29/2024 12:30 PM EDT Appointment [facility] 1 [address] [place] [address] 11/30/2024 1:30 PM EDT Appointment [facility] 1 [address] [place] [address] 12/01/2024 2:00 PM EDT Appointment [facility] 1 [address] [place] [address] 12/06/2024 11:40 AM EDT Appointment [facility] Radiation [address] [facility]. [id number] [place] [phone] Haven Blum, HAND FRAME SURGICAL ELASTIC KNITTER [address] [facility] [address] [place] [phone] 01/19/2025 9:30 AM EDT Appointment [facility] S Radiology [address], [address]st [place] [address] 01/19/2025 10:45 AM EDT Office Visit [place] [facility] [address], [address]st [place] [address] Abhilash Bangura MD [address] [place] [phone] 03/08/2025 1:00 PM EDT Office Visit [facility] [place] W[place] 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 Panic 10/26/2024 10/31/2024 Assessment Noted Time PHQ-9 Depression Total Score: 0 09/01/19 3:26 PM EDT A fall risk assessment has been complete d for the patient 10/06/2024 2:29 PM EDT A Body Mass Index follow-up plan has been documented for the patient 10/31/2024 4:09 PM EDT documented as of this encounter Care Teams Block Tester Relationship Specialty Start Date End Date Laurie Gutierrez MD [address] [place] [address] PCP - General 12/09/23 Joshua Martínez MD [address] [place] [phone] Consulting Physician Radiation Oncology 09/19/24 documented as of this encounter
--- OUTSIDE RECORDS SUMMARY | 2024-11-15 14:00 | XMS_ITS | Encounter Summary ---
Author Organization Healthcare Address [address] [place] [address] Care Team Providers Care Industrial Relations Officer Name Role Phone Laurie Gutierrez MD Primary Care Provider [phone] Joshua Martínez MD Unavailable Encounter Details Date Type Department Care Team (Late st Contact Info) Description 11/04/2024 Orders Only [facility] Radiation [id number] [place] [address] Radiation Oncology, Physician, [facility] [place] [address] 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 Tobacco Use Types Packs/Day Years [...] time in the past 12 m [facility], were you homeless or living in a [...] time in the past 12 m [facility], were you homeless or living in a [...] first t laurie in the morning (EYE-CHIEF TECHNICIAN X RAY) to steady your nerves or to get [...] [facility] [address] [address] 11/29/2024 11:00 AM EDT Office Visit [facility] [address] [address] Satnam Colvin MD 800 [facility] [address] [place] [address] 11/29/2024 12:30 PM EDT Appointment [facility] 1 [address] [place] [address] 11/30/2024 1:30 PM EDT Appointment [facility] 1 [address] [place] [address] 12/01/2024 2:00 PM EDT Appointment [facility] [address] [place] [address] 12/06/2024 11:40 AM EDT Appointment [facility] Radiation [address] [place] [address] Haven Blum, ART OBJECTS SUPERVISOR [address] [place] [address] 01/19/2025 9:30 AM EDT Appointment [facility] S Radiology [address], [address] [place] [address] 01/19/2025 10:45 AM EDT Office Visit [place] [facility] [address], [address] [place] [address] Abhilash Bangura MD [address] [place] [address] 03/08/2025 1:00 PM EDT Office Visit [facility] [place] [address] [place] [address] Teresita Oconnell MD [address] [place] [address] documented as of this encounter Procedures Procedure Name Priority Date/Time Associated Diagnosis Comments RAD ONC ARIA SESSION SUMMARY Routine 11/04/2024 11:02 AM EDT documented in this encounter Results * Rad Onc Aria Session Summary (11/04/2024 11:02 AM EDT) Course ID C1 ARIA RADIATION ONCOLOGY Course Intent Palliative ARIA RADIATION ONCOLOGY Course Start Date 09/26/2024 1:36 PM [facility] RADIATION ONCOLOGY Course First Treatment Date 10/24/2024 12:01 PM [facility] RADIATION ONCOLOGY Course Last Treatment Date 11/04/2024 10:59 AM [facility] RADIATION ONCOLOGY Course Elapsed Days 11 [facility] RADIATION ONCOLOGY Reference Point ID Brain WBRT [facility] RADIATION ONCOLOGY Reference Point Dosage Given to Date 27 Gy ARIA RADIATION ONCOLOGY Reference Point Session Dosage Given 3 Gy [facility] RADIATION ONCOLOGY Plan ID [id number] ARIA RADIATION ONCOLOGY Plan Name Brain WBRT_PTV [facility]A RADIATION ONCOLOGY Plan Fractions Treated to Date 9 ARIA RADIATION ONCOLOGY Plan Total Fractions Prescribed 10 ARIA RADIATION ONCOLOGY Plan Prescribed Dose Per Fraction 3 Gy ARIA RADIATION ONCOLOGY Plan Total Prescribed Dose 3,000 CGy ARIA RADIATION ONCOLOGY Plan Primary Reference Point Brain WBRT ARIA RADIATION ONCOLOGY 11/04/2024 11:0 2 AM EDT Physician Radiation Oncology RADIATION ONCOLO GY ORDERABLES Final Result ARIA RADIATION ONCOLOGY documented in this encounter Visit Diagnoses Not on filedocumented in this encounter Additional Health Concerns Infection Onset Date Last Indicated Resolved Time 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, 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 TILER Panic 10/26/2024 10/31/2024 Assessment Noted Time PHQ-9 Depression Total Score: 0 09/01/19 3:26 PM EDT A fall risk assessment has been complete d for the patient 10/06/2024 2:29 PM EDT A Body Mass Index follow-up plan has been documented for the patient 10/31/2024 4:09 PM EDT documented as of this encounter Care Teams Industrial Relations Officer Relationship Specialty Start Date End Date Laurie Gutierrez MD [address] [place] [address] PCP - General 12/09/23 Joshua Martínez MD [address] [place] [address] Consulting Physician Radiation Oncology 09/19/24 documented as of this encounter
--- OUTSIDE RECORDS SUMMARY | 2024-11-15 14:00 | XMS_ITS | Encounter Summary ---
Author Organization Healthcare Address [address] [place] [address] Care Team Providers Care Nursery Attendant Name Role Phone Laurie Gutierrez MD Primary Care Provider [phone] Joshua Martínez MD Unavailable Jasmina Smith LPN Unavailable Unavailable Reason for Visit * Reason Comments TCM Call Encounter Details Date Type Department Care Team (Late st Contact Info) Description 11/01/2024 Patient Outreach [facility] [address] [facility] [place] [place] [address] Jasmina Smith LPN VALUE[employer] [address] TCM Call 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 Tobacco Use Types Packs/Day Years [...] drink first t laurie in the morning (EYE-PRODUCT TECHNICIAN) to steady your nerves or to [...] Upcoming Encounters Date Type Department Care Team ([facility] st Contact Info) Description 11/29/2024 10:30 AM EDT Clinical Support [facility] Res[facility] [address] [facility] [address] [place] [address] 11/29/2024 11:00 AM EDT Office Visit [facility] Res[facility] [address] [address] Satnam Colvin MD 800 [facility] [address] [place] [address] 11/29/2024 12:30 PM EDT Appointment [facility] 1 [address] [place] [address] 11/30/2024 1:30 PM EDT Appointment [facility] 1 [address] [place] [address] 12/01/2024 2:00 PM EDT Appointment [facility] [address] [place] [address] 12/06/2024 11:40 AM EDT Appointment [facility] CC Radiation [address] [place] [address] Haven Blum, SERVICE ARCHITECT [address] [place] [address] 01/19/2025 9:30 AM EDT Appointment [facility] S Radiology [address] [place] [address] 01/19/2025 10:45 AM EDT Office Visit [place] [facility] [address], [address] [place] [address] Abhilash Bangura MD [address] [place] [address] 03/08/2025 1:00 PM EDT Office Visit [facility] [place] 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, MANAGER NEW PRODUCT Panic 10/26/2024 10/31/2024 Assessment Noted Time PHQ-9 Depression Total Score: 0 09/01/19 25 3:26 PM EDT A fall risk assessment has been complete d for the patient 10/06/2024 2:29 PM EDT A Body Mass Index follow-up plan has been documented for the patient 10/31/2024 4:09 PM EDT documented as of this encounter Care Teams Nursery Attendant Relationship Specialty Start Date End Date Laurie Gutierrez MD [address] [place] [address] PCP - General 12/09/23 Joshua Martínez MD [address] [place] [address] [address] [place] [address] Consulting Physician Radiation Oncology 09/19/24 Jsamina Smith LPN VALUE[employer] [place] [address] TCM Nurse 10/19/24 11/01/24 documented as of this encounter
--- OUTSIDE RECORDS SUMMARY | 2024-11-15 14:01 | XMS_ITS | Patient Health Record ---
Author Organization [facility] [place] Address [address] [place] [address] [place] [address] Care Team Providers Care Insurance Appraiser Name Role Phone TRAY CARRERA Unavailable [phone] Tray Carrera MD Unavailable Unavailable SATYA GOTTI Unavailable [phone] Yamilet Coleman Unavailable [phone] Justina Beasley Unavailable [phone] Catherine Vidal Unavailable [phone] Allergies Allergen (clinical drug ingredient) Drug/Non Drug Allergy documented on EMR Reaction Allergy Type Onset Date Status Keflex Unknown Drug Allergy Active lisinopril Unknown Drug Allergy Active meloxicam Unknown Drug Allergy Active Results Component Value Reference Range Notes Urinalysis, Routine Reviewed date:03/21/2024 12:29:01 PM Interpretation: Performing Lab: Notes/Report: Urine-Color YELLOW Appearance DARK Specific [place] 1.015 pH 6.0 Glucose 3+ Protein NEG Occult Blood NEG Bilirubin NEG Urobilinogen,Semi-Qn NEG Nitrite, Urine NEG Ketones NEG WBC Esterase NEG Urinalysis, Complete Reviewed date:09/26/2024 10:10:03 AM Interpretation: Performing Lab: Notes/Report: Specific [place] 1.015 pH 6 Urine-Color YELLOW Appearance CLEAR WBC Esterase NEG Protein NEG Glucose 3+ Ketones NEG Occult Blood NEG Bilirubin NEG Urobilinogen,Semi-Qn 3.5 Nitrite, Urine NEG Lipid Panel With LDL/HDL Rat io Reviewed date:07/11/2024 08:43:28 AM Interpretation: Performing Lab:[facility] [place], [address] [facility], [place], Phone - [phone], Director - Gabe Notes/Report: Cholesterol, Total 137 100-199 mg/dL Triglycerides 98 0-149 mg/dL HDL Cholesterol 51 >39 mg/dL VLDL Cholesterol Anika 18 5-40 mg/dL LDL Chol Calc ([facility]) 68 0-99 mg/dL LDL/HDL Ratio 1.3 0.0-3.2 ratio LDL/HDL Ratio Men Women 1/2 Avg.Risk 1.0 1.5 Avg.Risk 3.6 3.2 2X Avg.Risk 6.2 5.0 3X Avg.Risk 8.0 6.1 Microalb/Creat Ratio, Randm Ur Reviewed date:07/11/2024 08:42:54 AM Interpretation: Performing Lab:[facility], Phone - [phone], Director - [facility] Notes/Report: Albumin, Urine <3.0 Not Estab. ug/mL Alb/Creat Ratio <5 0-29 mg/g creat Normal: 0 - 29 Moderately increased: 30 - 300 Severely increased: >300 Vitamin D, 25-Hydroxy Reviewed date:07/11/2024 08:43:34 AM Interpretation: Performing Lab:[facility], Phone - [phone], Director - [facility] Notes/Report: Vitamin D, 25-Hydroxy 31.8 30.0-100.0 ng/mL Vitamin D deficiency has been defined by the [place] of [place] and an Endocrine Society practice guideline as a level of serum 25-OH vitamin D less than 20 ng/mL (1,2). The Endocrine Society went on to further define vitamin D insufficiency as a level between 21 and 29 ng/mL (2). 1. IOM ([place] of [place]). 2010. Dietary reference intakes for calcium and D. Prabh[place]: The National Academies Press. 2. Lawrence MF, Yusuf NC, Pablito ONEAL, et al. Evaluation, treatment, and prevention of vitamin D deficiency: an Endocrine Society clinical practice guideline. JCEM. 2010; 96(7):1911-30. CBC With Differential/Platel et Reviewed date:07/11/2024 08:43:54 AM Interpretation: Performing Lab:[facility], Phone - [phone], Director - [facility] Notes/Report: WBC 7.5 3.4-10.8 x10E3/uL RBC 3.81 3.77-5.28 x10E6/uL Hemoglobin 11.3 11.1-15.9 g/dL Hematocrit 35.8 34.0-46.6 % MCV 94 79-97 fL MCH 29.7 26.6-33.0 pg MCHC 31.6 31.5-35.7 g/dL RDW 14.0 11.7-15.4 % Platelets 205 150-450 x10E3/uL Neutrophils 76 Not Estab. % Lymphs 15 Not Estab. % Monocytes 5 Not Estab. % Eos 3 Not Estab. % Basos 1 Not Estab. % Neutrophils (Absolute) 5.7 1.4-7.0 x10E3/uL Lymphs (Absolute) 1.1 0.7-3.1 x10E3/uL Monocytes(Absolute) 0.4 0.1-0.9 x10E3/uL Eos (Absolute) 0.2 0.0-0.4 x10E3/uL Baso (Absolute) 0.1 0.0-0.2 x10E3/uL Immature Granulocytes 0 Not Estab. % Immature Grans (Abs) 0.0 0.0-0.1 x10E3/uL TSH Reviewed date:07/11/2024 08:43:39 AM Interpretation: Performing Lab:[facility], Phone - [phone], Director - [facility] Notes/Report: TSH 2.140 0.450-4.500 uIU/mL Urinalysis, Complete Reviewed date:07/11/2024 08:44:12 AM Interpretation: Performing Lab:[facility] [place], [address] [place] [address], Phone - [phone], Director - [facility] Notes/Report: Specific [place] >=1.030 1.005-1.030 pH 5.5 5.0-7.5 Urine-Color Yellow Yellow Appearance Clear Clear WBC Esterase Negative Negative Protein Negative Negative/Trace Glucose 3+ Negative Ketones Negative Negative Occult Blood Negative Negative Bilirubin Negative Negative Urobilinogen,Semi-Qn 0.2 0.2-1.0 mg/dL Nitrite, Urine Negative Negative Microscopic Examination Micr oscopic follows if indicated. Microscopic Examination See below: Micr oscopic was indicated and was performed. WBC 0-5 0 - 5 /hpf RBC None seen 0 - 2 /hpf Epithelial Cells (non renal) 0-10 0 - 10 /hpf Casts None seen None seen /lpf Bacteria None seen None seen/Few Prot+CreatU (Random) Reviewed date:07/11/2024 08:44:02 AM Interpretation: Performing Lab:[facility], Phone - [phone], Director - [facility] Notes/Report: Creatinine, Urine 58.6 Not Estab. mg/dL Protein,Total,Urine 12.6 Not Estab. mg/dL Protein/Creat Ratio 215 0-200 mg/g creat Magnesium, Serum Reviewed date:07/11/2024 08:43:44 AM Interpretation: Performing Lab:[facility] [employer] [facility], Phone - [phone], Director - [facility] Notes/Report: Magnesium 1.6 1.6-2.3 mg/dL Hemoglobin A1c Reviewed date:07/11/2024 08:43:16 AM Interpretation: Performing Lab:[facility] [employer] [facility], Phone - [phone], Director - [facility] Notes/Report: Hemoglobin A1c 6.6 4.8-5.6 % . Prediabetes: 5.7 - 6.4 Diabetes: >6.4 Glycemic control for adults with diabetes: <7.0 Vitamin B12 and Folate Reviewed date:07/11/2024 08:42:58 AM Interpretation: Performing Lab:[facility], Phone - [phone], Director - [facility] Notes/Report: Vitamin B12 9057 150-4573 pg/mL Folate (Folic Acid), Serum 9.0 >3.0 ng/mL A serum folate concentration of less than 3.1 ng/mL is considered to represent clinical deficiency. Comp. Metabolic Panel (14) Reviewed date:02/26/2024 10:41:06 AM Interpretation: Performing Lab:[facility], Phone - [phone], Director - Gabe Notes/Report: Glucose 108 70-99 mg/dL BUN 18 8-27 mg/dL Creatinine 0.85 0.57-1.00 mg/dL eGFR 77 >59 mL/min/1.73 BUN/Creatinine Ratio 21 12-28 Sodium 141 134-144 mmol/L Potassium 4.4 3.5-5.2 mmol/L Chloride 101 96-106 mmol/L Carbon Dioxide, Total 26 20-29 mmol/L Calcium 9.1 8.7-10.3 mg/dL Protein, Total 7.4 6.0-8.5 g/dL Albumin 4.0 3.9-4.9 g/dL Globulin, Total 3.4 1.5-4.5 g/dL Bilirubin, Total 0.5 0.0-1.2 mg/dL Alkaline Phosphatase 100 44-121 IU/L AST (SGOT) 16 0-40 IU/L ALT (SGPT) 11 0-32 IU/L Lipid Panel With LDL/HDL Rat io Reviewed date:02/26/2024 10:41:23 AM Interpretation: Performing Lab:[facility], [address] [facility], Phone - [phone], Director - [place] Notes/Report: Cholesterol, Total 134 100-199 mg/dL Triglycerides 71 0-149 mg/dL HDL Cholesterol 56 >39 mg/dL VLDL Cholesterol Anika 14 5-40 mg/dL LDL Chol Calc (NIH) 64 0-99 mg/dL LDL/HDL Ratio 1.1 0.0-3.2 ratio LDL/HDL Ratio Men Women 1/2 Avg.Risk 1.0 1.5 Avg.Risk 3.6 3.2 2X Avg.Risk 6.2 5.0 3X Avg.Risk 8.0 6.1 Vitamin D, 25-Hydroxy Reviewed date:02/26/2024 10:41:28 AM Interpretation: Performing Lab:[facility] [place], [address] [facility], Phone - [phone], Director - [place] Notes/Report: Vitamin D, 25-Hydroxy 33.8 30.0-100.0 ng/mL Vitamin D deficiency has been defined by the [place] of [place] and an Endocrine Society practice guideline as a level of serum 25-OH vitamin D less than 20 ng/mL (1,2). The Endocrine Society went on to further define vitamin D insufficiency as a level between 21 and 29 ng/mL (2). 1. IOM ([place]). 2010. Dietary reference intakes for calcium and D. Pr[place]: The National Academies Press. 2. Lawrence MF, Yusuf [place], Pablito ONEAL, et al. Evaluation, treatment, and prevention of vitamin D deficiency: an Endocrine Society clinical practice guideline. JCEM. 2010; 96(7):1911-30. CBC With Differential/Platel et Reviewed date:02/26/2024 10:42:12 AM Interpretation: Performing Lab:[facility] [place], [address] [facility], Phone - [phone], Director - [facility] Notes/Report: WBC 7.5 3.4-10.8 x10E3/uL RBC 3.37 3.77-5.28 x10E6/uL Hemoglobin 10.4 11.1-15.9 g/dL Hematocrit 33.0 34.0-46.6 % MCV 98 79-97 fL MCH 30.9 26.6-33.0 pg MCHC 31.5 31.5-35.7 g/dL RDW 13.5 11.7-15.4 % Platelets 194 150-450 x10E3/uL Neutrophils 75 Not Estab. % Lymphs 13 Not Estab. % Monocytes 6 Not Estab. % Eos 5 Not Estab. % Basos 1 Not Estab. % Neutrophils (Absolute) 5.6 1.4-7.0 x10E3/uL Lymphs (Absolute) 1.0 0.7-3.1 x10E3/uL Monocytes(Absolute) 0.4 0.1-0.9 x10E3/uL Eos (Absolute) 0.4 0.0-0.4 x10E3/uL Baso (Absolute) 0.1 0.0-0.2 x10E3/uL Immature Granulocytes 0 Not Estab. % Immature Grans (Abs) 0.0 0.0-0.1 x10E3/uL TSH Reviewed date:02/26/2024 10:41:37 AM Interpretation: Performing Lab:[facility] [place], [address] [employer], [place], Phone - [phone], Director - [place]abe Notes/Report: TSH 2.980 0.450-4.500 uIU/mL Urinalysis, Complete Reviewed date:02/26/2024 10:42:26 AM Interpretation: Performing Lab:[facility] [place] [address] [place] [address], Phone - [phone], Director - [facility] Notes/Report: Specific [place] 1.028 1.005-1.030 pH 6.5 5.0-7.5 Urine-Color Yellow Yellow Appearance Clear Clear WBC Esterase Negative Negative Protein Negative Negative/Trace Glucose 3+ Negative Ketones Negative Negative Occult Blood Negative Negative Bilirubin Negative Negative Urobilinogen,Semi-Qn 0.2 0.2-1.0 mg/dL Nitrite, Urine Negative Negative Microscopic Examination Micr oscopic follows if indicated. Microscopic Examination See below: Micr oscopic was indicated and was performed. WBC None seen 0 - 5 /hpf RBC None seen 0 - 2 /hpf Epithelial Cells (non renal) None seen 0 - 10 /hpf Casts None seen None seen /lpf Bacteria None seen None seen/Few Prot+CreatU (Random) Reviewed date:02/26/2024 10:42:18 AM Interpretation: Performing Lab:[facility] [place] [address] [place] [address], Phone - [phone], Director - [facility] Notes/Report: Creatinine, Urine 67.9 Not Estab. mg/dL Protein,Total,Urine 9.1 Not Estab. mg/dL Protein/Creat Ratio 134 0-200 mg/g creat Magnesium, Serum Reviewed date:02/26/2024 10:41:42 AM Interpretation: Performing Lab:[facility] [place] [address] [place] [address], Phone - [phone], Director - [facility] Notes/Report: Magnesium 1.8 1.6-2.3 mg/dL Vitamin B12 Reviewed date:02/26/2024 10:41:32 AM Interpretation: Performing Lab:[facility] [place] [address] [place] [address], Phone - [phone], Director - [facility] Notes/Report: Vitamin B12 0191 391-7698 pg/mL Hemoglobin A1c Reviewed date:02/26/2024 10:41:10 AM Interpretation: Performing Lab:[facility] [place] [address] [place] [address], Phone - [phone], Director - Gabe Notes/Report: Hemoglobin A1c 6.3 4.8-5.6 % . Prediabetes: 5.7 - 6.4 Diabetes: >6.4 Glycemic control for adults with diabetes: <7.0 Uric Acid, Serum Reviewed date:02/26/2024 10:41:18 AM Interpretation: Performing Lab:[facility] [place], [address] [facility], Phone - [phone], Director - [place] Notes/Report: Uric Acid 5.0 3.0-7.2 mg/dL Therapeutic ta rget for gout patients: <6.0 X ray : Foot, right 3v Reviewed date:02/01/2024 11:17:29 AM Interpretation: Performing Lab: Notes/Report: Urinalysis, Routine Reviewed date:12/07/2023 04:42:31 PM Interpretation: Performing Lab: Notes/Report: Urine-Color YELLOW Appearance DARK Specific [place] 1.000 pH 6.5 Glucose 3+ Protein +- 15MG Occult Blood +- 10ERY Bilirubin NEG Urobilinogen,Semi-Qn - Nitrite, Urine NEG Ketones NEG WBC Esterase 2+ Comp. Metabolic Panel (14) Reviewed date:07/11/2024 08:43:11 AM Interpretation: Performing Lab:[facility] [place], [address] [facility], Phone - [phone], Director - [place] Notes/Report: Glucose 139 70-99 mg/dL BUN 14 8-27 mg/dL Creatinine 0.87 0.57-1.00 mg/dL eGFR 75 >59 mL/min/1.73 BUN/Creatinine Ratio 16 12-28 Sodium 142 134-144 mmol/L Potassium 4.4 3.5-5.2 mmol/L Chloride 102 96-106 mmol/L Carbon Dioxide, Total 24 20-29 mmol/L Calcium 9.5 8.7-10.3 mg/dL Protein, Total 7.5 6.0-8.5 g/dL Albumin 4.2 3.9-4.9 g/dL Globulin, Total 3.3 1.5-4.5 g/dL Bilirubin, Total 0.5 0.0-1.2 mg/dL Alkaline Phosphatase 112 44-121 IU/L AST (SGOT) 16 0-40 IU/L ALT (SGPT) 14 0-32 IU/L MAMMOGRAM, SCREENING Reviewed date:01/06/2024 02:10:11 PM Interpretation:appt is 01/14 @ 10am Performing Lab: Notes/Report: appt is 01/14 @ 10am Urinalysis, Routine Reviewed date:01/04/2024 08:41:20 AM Interpretation: Performing Lab: Notes/Report: Urine-Color YELLOW Appearance LIGHT Specific [place] 1.015 pH 6.0 Glucose 3+ Protein NEG Occult Blood NEG Bilirubin NEG Urobilinogen,Semi-Qn 3.5 Nitrite, Urine NEG Ketones NEG WBC Esterase NEG Electrocardiogram (EKG) Reviewed date:08/14/2024 05:14:30 PM Interpretation: Performing Lab: Notes/Report: MAMMOGRAM, SCREENING Reviewed date:01/04/2024 10:35:30 AM Interpretation:appt is 01/14 @ 10 Performing Lab: Notes/Report: appt is 01/14 @ 10 Reason For Referral Reason right foot pain Diagnosis 1 Foot pain, right (M7 9.671) Referral Organization [facility] Referring Provider First Name Yamilet Referring Provider Last Name Jared Referring Provider Speciality Physician Bird Tender Referred Provider FELIPA CERVANTES Referred Provider Specialty Podiatry General Notes JANNETH MORALES 02/02 01:40:42 PM > FAXEDCARMEN DEBBIE 02/05/2024 09:42:21 AM > PER FAX PT HAS BEEN NOTIFIED. Referral Priority Urgent Referral Appointment Date 02/25/2024 Reason Samson Best M.D. Orthopaedic & Spine Surgery at [facility] orthopedic Diagnosis 1 Low back pain, unspe cified (M54.50) Referral Organization [facility] [place] Referring Provider First Name Justina Referring Provider Last Name Ramos Referring Provider Speciality Nurse Prac titioner Referred Provider deepa gillette Referred Provider Specialty Orthopedic S urgery General Notes JANNETH MORALES 08/26 10:34:29 AM > FAXEDCARMEN DEBBIE 09/13/2024 04:05:27 PM > PT NOTIFIED BY BG GILLETTE Referral Priority Urgent Referral Appointment Date 09/14/2024 Reason PT/OT and home healt h , starting chemo Diagnosis 1 Malignant neoplasm o f unspecified part of unspecified bronchus or lung (C34.90) Referral Organization [facility] Referring Provider First Name Yamilet Referring Provider Last Name Coleman Referring Provider Speciality Physician Bird Tender Referred Provider [facility] Referred Provider Specialty Other Medica l Care General Notes REGINOANAYELI MolinaBIE 10/04 12:09:51 PM > FAXED Referral Priority Urgent Reason home health, PT, OT Diagnosis 1 Pneumonia, unspecifi ed organism (J18.9) Referral Organization [facility] Referring Provider First Name Yamilet Referring Provider Last Name Coleman Referring Provider Speciality Physician Bird Tender Referred Provider [facility] 2, Lula baez Referred Provider Specialty Other Medica l Care General Notes JANNETH MORALES 10/28 01:52:00 PM > FAXED Referral Priority Routine Medications Medication SIG (Take, Route, Frequency, Duration) Notes Start Date End Date Status Lipitor 40 MG 1 tablet Orally Once a day for 90 days Active Triamterene-HCTZ 37.5-25 MG 1 tablet in the morning Orally Once a day for 90 days Active Cetirizine HCl 10 mg TAKE 1 TABLET 1 AURELIA E EACH DAY daily for 90 days Active Insulin Glargine-yfgn 100 UNIT/ML inject 20 units under the skin Subcutaneous nightly Active Matter[employer] G6 Transmitter - as directed for 90 days Active Calcium Carbonate Ac tive Ciclopirox 8 % 1 application Drop Wire Hanger ally Once a day for 30 days 07/08/2024 Active Calcium 600/Vitamin D 600-10 MG-MCG 1 tablet with a meal Orally Once a day for 30 days Active rOPINIRole HCl 1 mg 1 tablet orally twic e a day for 30 day(s) 08/23/2024 Active Januvia 50 MG 1 tablet Orally Once a day for 30 days Active tiZANidine HCl 2 MG 1 tablet at bedtime as needed Orally Once a day for 10 days 08/23/2024 Active Jardiance 25 mg TAKE 1 TABLET 1 TIME EACH DAY for 90 days Active Ferrous Sulfate 325 (65 Fe) MG 1 tablet Orally once a day for 30 days 08/23/2024 Active Carvedilol 25 MG 1 tablet Orally Twic e a day for 30 days Active Benzonatate 200 MG 1 capsule as needed Orally Three times a day for 30 days 07/08/2024 Active Compazine Active Ondansetron 8 MG 1 tablet on the tong ue and allow to dissolve as needed Orally every 8 hours Active Nystatin 344959 UNIT/ML swish and swallo w 5mL Mouth/Throat Four times a day for 39 doses 10/20/2024 Active Benzonatate 100 MG 1 capsule as needed Orally Three times a day for 15 days Active Melatonin Active FLUoxetine HCl 40 mg take 1 tablet oral once aday for 90 days Active Magnesium Oxide 400 MG 1 tablet with citlali d Orally twice a day 10/20/2024 Active Vitamin B-12 ER 1000 MCG 1 tablet Orally Once a day for 90 days Active hydrOXYzine HCl 25 MG 1 tablet as needed Orally three times a day for 30 days Active Azithromycin 250 MG take 2 tablets the day then 1 daily Orally daily for 5 days 10/21/2024 Active Insulin Lispro 100 UNIT/ML inject 15 units with meals Active Xarelto 20 MG 1 tablet with food Orally Once a day for 30 days Active dexAMETHasone 2 MG 1 tablet Orally twic e a day Active Alcohol Prep Pads 70 % as directed for 30 days Active Gabapentin 600 MG 1 capsule Orally 4 t imes a day for 28 days oncology 12/07/2023 Active Accu-Chek Softclix Lancets - USE TO TEST BLOOD SUGAR 3 TIMES EACH DAY for 30 Active Vitamin D-[address] 25 MCG (1000 UT) 1 tablet Orally Once a day Active Protonix 40 MG 1 tablet Orally Once a day for 90 days Active FreeStyle Lite Test - as directed In Vit ro daily for 30 days Active Dexcom G6 Staff Readiness Officer - as directed 02/12/2024 Active Pantoprazole Sodium 40 mg TAKE 1 TABLET 1 TIME EACH DAY for 30 Active Dexcom G7 Staff Readiness Officer - as directed 09/26/2024 Active Montelukast Sodium 10 MG 1 tablet Orally Once a day for 30 days Active Dexcom G7 Sensor - as directed 09/26/2024 Active Breztri Aerosphere 160-9-4.8 MCG/ACT INHALE 2 PUFFS 2 TIMES EACH DAY for 30 Active metFORMIN HCl 1000 MG 1 tablet with meal s Orally Twice a day for 30 days Active Immunizations Vaccine Route Administration Date Status Comme nts Afluria Quadrivalent IM Intramuscular 03/17/2022 Administe red Afluria Quadrivalent IM Intramuscular 02/23/2023 Administe red Afluria Quadrivalent Unknown 02/01/2024 Administered 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 Tobacco Use: 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 Observation Description Date Details (start date - stop date) Former Smoker NA - NA Tobacco Control (Standard) Question Answer Notes Tobacco use: Former smoker Problems Problem Type SNOMED Code ICD Code Onset Dates Problem Status W/U Status Risk Notes Problem Hyperglycemia due to type 2 diabetes mellitus (095901256615416) Type 2 diabetes mellitus with hyperglycemia (E11.65) 016 Active confirmed Ricky-Bi n Problem Type II diabetes mellitus without complication (235623237) Type 2 diabetes mellitus without complications (E11.9) Active confirmed Ricky-Bi n Problem Mixed hyperlipidemia (914390965) Mixed hyperlipidemia (E78.2) Active confirmed Ricky-Bi n Problem Essential hypertension (96584137) Essential (primary) hypertension (I10) Active confirmed Ricky-Bi n Problem Congenital single renal cyst (8856599492911) Congenital single renal cyst (Q61.01) 016 Active confirmed Ricky-Bi n Problem Malignant tumor of lung (528788920) Malignant neoplasm of unspecified part of unspecified bronchus or lung (C34.90) Active confirmed Problem Anemia (298662450) Anemia, unspe cified (D64.9) Active confirmed Problem Hypomagnesemia (568118487) Hypomagnesemia (E83.42) Active confirmed Problem Disorder of urinary bladder (67164430) Other specified disorders of bladder (N32.89) Active confirmed Problem Abnormal uterine bleeding (71113852893341) Abnormal uterine and vaginal bleeding, unspecified (N93.9) Active confirmed Problem Congenital renal cyst (554886841403500) Congenital multiple renal cysts (Q61.02) Active confirmed Problem Nausea (920995741) Nausea (R11.0) Active confir med Problem Body mass index 40+ - severely obese (399923087) Body mass index (BMI) 45.0-49.9, adult (Z68.42) Active confirmed Problem Vitamin D deficiency (41589455) Vitamin D deficiency (E55.9) Active confirmed Problem Neuropathy (864962729) Neuropathy (G62.9) Active confirmed Problem Anxiety (02832780) Anxiety (F41.9) Active confi rmed Problem Chronic kidney disease stage 2 (622160841) Chronic kidney disease (CKD), stage II (mild) (N18.2) Active confirmed Problem Gastroesophageal reflux disease without esophagitis (954599671) Gastroesophageal reflux disease without esophagitis (K21.9) Active confirmed Problem Allergic rhinitis (95602365) Allergic rhinitis (J30.9) Active confirmed Problem Allergic rhinitis (22555424) Acute allergic rhinitis, unspecified seasonality, unspecified trigger (J30.9) Active confirmed Problem Restless legs (33613603) Restless leg (G25.81) Active confirmed Problem Patient immunocompromised (716247312) Immunocompromised patient (D84.9) Active confirmed Problem Diabetes mellitus type 2 (31124999) Diabetes mellitus type 2, uncontrolled (E11.65) Active confirmed Problem Incontinence (72068830) Incontinence in female (R32) Active confirmed Problem Acute exacerbation of chronic obstructive airways disease (519195116) COPD exacerbation (J44.1) Active confirmed Problem Chronic obstructive lung disease (75373666) COPD without exacerbation (J44.9) Active confirmed Problem Irritable bowel syndrome (79946059) Irritable bowel syndrome, unspecified type (K58.9) Active confirmed Problem Tobacco dependence (58608972) Tobacco dependence (F17.200) Active confirmed Problem Vertebrogenic low back pain (346997022223392311 ) Vertebrogenic low back pain (M54.51) Active confirmed Vital Signs Heart Rate 120 /min 10/21/2024 Temperature 98.2 degrees Fahrenheit 10/21/2024 Respiratory Rate 20 /min 10/21/2024 Oximetry 95 % 10/21/2024 Blood pressure diastolic 84 mm Hg 10/21/2024 Height 67 in 10/21/2024 Blood pressure systolic 136 mm Hg 10/21/2024 Weight 242 lbs 08/23/2024 BMI 37.9 kg/m2 08/23/2024 Encounters Encounter Location Date Provider Diagnosis [facility] [place] [address] 12/07/2023 Yamilet Coleman Dysuria R30.0 ; Alee min D deficiency E55.9 ; Gastroesophageal reflux disease without esophagitis K21.9 ; Anxiety F41.9 ; Essential (primary) hypertension I10 ; Acute cystitis without hematuria N30.00 ; Type 2 diabetes mellitus with hyperglycemia E11.65 ; Neuropathy G62.9 and Bronchitis J40 [facility] [place] [address] 01/01/2024 Yamilet Coleman Dysuria R30.0 ; Abno rmal uterine and vaginal bleeding, unspecified N93.9 ; Vitamin D deficiency E55.9 ; Gastroesophageal reflux disease without esophagitis K21.9 ; Anxiety F41.9 ; Essential (primary) hypertension I10 ; Neuropathy G62.9 ; Screening for breast cancer Z12.31 and Type 2 diabetes mellitus with hyperglycemia E11.65 [facility] [place] [address] 02/01/2024 Yamilet Coleman Foot pain, right M79 .671 and Encounter for immunization Z23 [facility] [place] [address] 02/05/2024 Yamilet Coleman Foot pain, right M79 .671 [facility] [facility] [place] [address] 02/25/2024 Yamilet Coleman Annual physical exam Z00.00 ; Type 2 diabetes mellitus with hyperglycemia E11.65 ; Mixed hyperlipidemia E78.2 ; Malignant neoplasm of unspecified part of unspecified bronchus or lung C34.90 ; Anxiety F41.9 ; COPD without exacerbation J44.9 ; Essential (primary) hypertension I10 ; Dysuria R30.0 ; Hypomagnesemia E83.42 ; Chronic kidney disease (CKD), stage II (mild) N18.2 ; Fatigue, unspecified type R53.83 ; Neuropathy G62.9 and Vitamin D deficiency E55.9 [facility] [place] [address] 03/21/2024 Yamilet Coleman COVID-19 U07.1 ; Dys uria R30.0 ; Yeast infection B37.9 ; Vitamin D deficiency E55.9 ; Gastroesophageal reflux disease without esophagitis K21.9 ; Type 2 diabetes mellitus with hyperglycemia E11.65 and COPD without exacerbation J44.9 [facility] [place] [address] 03/28/2024 Yamilet Coleman Acute frontal sinusi tis, unspecified J01.10 and Acute bacterial conjunctivitis of right eye H10.31 [facility] [address] [place] [address] 04/27/2024 Yamilet Coleman Type 2 diabetes mo itus with hyperglycemia E11.65 ; COPD without exacerbation J44.9 ; Congenital multiple renal cysts Q61.02 ; Gastroesophageal reflux disease without esophagitis K21.9 ; Neuropathy G62.9 ; Malignant neoplasm of unspecified part of unspecified bronchus or lung C34.90 ; Mixed hyperlipidemia E78.2 ; Allergic rhinitis J30.9 and Vitamin D deficiency E55.9 [facility] [place] [place] [address] 05/16/2024 Yamilet Colmean Type 2 diabetes mo itus with hyperglycemia E11.65 ; Acute frontal sinusitis, unspecified J01.10 ; COPD without exacerbation J44.9 ; Congenital multiple renal cysts Q61.02 ; Gastroesophageal reflux disease without esophagitis K21.9 ; Neuropathy G62.9 ; Malignant neoplasm of unspecified part of unspecified bronchus or lung C34.90 ; Mixed hyperlipidemia E78.2 ; Allergic rhinitis J30.9 ; Vitamin D deficiency E55.9 ; Essential (primary) hypertension I10 ; Dysuria R30.0 ; Hypomagnesemia E83.42 ; Chronic kidney disease (CKD), stage II (mild) N18.2 and Fatigue, unspecified type R53.83 [facility] [address] [place] [address] 07/08/2024 Yamilet Coleman Type 2 diabetes mo itus with hyperglycemia E11.65 ; COPD without exacerbation J44.9 ; Congenital multiple renal cysts Q61.02 ; Gastroesophageal reflux disease without esophagitis K21.9 ; Neuropathy G62.9 ; Malignant neoplasm of unspecified part of unspecified bronchus or lung C34.90 ; Mixed hyperlipidemia E78.2 ; Allergic rhinitis J30.9 ; Vitamin D deficiency E55.9 ; Essential (primary) hypertension I10 ; Chronic kidney disease (CKD), stage II (mild) N18.2 ; Nail fungus B35.1 and Fatigue, unspecified type R53.83 [facility] [place] [address] 08/05/2024 Catherine Vidal Acute cough R05.1 ; Pneumonia, unspecified organism J18.9 ; COPD without exacerbation J44.9 and Malignant neoplasm of unspecified part of unspecified bronchus or lung C34.90 [facility] [address] [place] [address] 08/12/2024 Catherine Vidal Chest pain at rest R 07.9 ; Essential (primary) hypertension I10 ; COPD without exacerbation J44.9 and Chronic kidney disease (CKD), stage II (mild) N18.2 [facility] [place] [address] 08/23/2024 Justina Beasley Low back pain, unspecified M54.50 ; Restless leg G25.81 and Anemia, unspecified D64.9 [facility] [address] [place] [address] 09/26/2024 Yamileteliot Coleman Type 2 diabetes mo itus with hyperglycemia E11.65 ; Malignant neoplasm of unspecified part of unspecified bronchus or lung C34.90 ; Dysuria R30.0 ; COPD without exacerbation J44.9 ; Congenital multiple renal cysts Q61.02 ; Gastroesophageal reflux disease without esophagitis K21.9 ; Neuropathy G62.9 ; Mixed hyperlipidemia E78.2 ; Fatigue, unspecified type R53.83 ; Allergic rhinitis J30.9 ; Vitamin D deficiency E55.9 ; Essential (primary) hypertension I10 and Chronic kidney disease (CKD), stage II (mild) N18.2 [facility] [place] [address] 09/29/2024 Yamilet Coleman Pneumonia, unspecifi ed organism J18.9 ; Malignant neoplasm of unspecified part of unspecified bronchus or lung C34.90 ; Acute cough R05.1 ; Weakness generalized R53.1 ; COPD without exacerbation J44.9 and Anxiety F41.9 [facility] [place] [address] 10/21/2024 Yamilet Coleman Pneumonia, unspecifi ed organism J18.9 ; Malignant neoplasm of unspecified part of unspecified bronchus or lung C34.90 ; Essential (primary) hypertension I10 ; Acute cough R05.1 ; Weakness generalized R53.1 ; COPD without exacerbation J44.9 and Anxiety F41.9 [facility] [address] [place] [address] 11/30/2023 RERYANNE CARRERA [facility] [address] [place] [address] 11/30/2023 Yamilet Coleman [facility] [address] [place] [address] 11/30/2023 SATYA GOTTI [facility] [address] [place] [address] 11/30/2023 SATYA GOTTI [facility] [address] [place] [address] 12/07/2023 SATYA GOTTI Neuropathy G62.9 [facility] [address] [place] [address] 12/08/2023 Yamilet Coleman [facility] [address] [place] [address] 12/22/2023 Yamilet Coleman Other screening mammogram Z12.31 [facility] [address] [place] [address] 02/03/2024 Yamilet Coleman Anxiety F41.9 ; Neuropathy G62.9 and Type 2 diabetes mellitus with hyperglycemia E11.65 [facility] [address] [place] [address] 02/11/2024 Yamilet Coleman [facility] [address] [place] [address] 02/12/2024 Yamilet Coleman Type 2 diabetes mo itus with hyperglycemia E11.65 [facility] [place] [address] [facility] [place] [id number] 02/16/2024 TRAY CARRERA [facility] [address] [place] [address] 03/04/2024 TRAY CARRERA Anxiety F41.9 [facility] [address] [place] [address] 03/21/2024 Yamilet Coleman [facility] [address] [place] [address] 03/21/2024 Yamilet Coleman [facility] [address] [place] [address] 03/21/2024 Yamilet Coleman [facility] [address] [place] [address] 04/05/2024 Yamilet Coleman Gastroesophageal ref lux disease without esophagitis K21.9 and COPD without exacerbation J44.9 [facility] [address] [place] [address] 05/06/2024 TRAY CARRERA Type 2 diabetes mo itus with hyperglycemia E11.65 [facility] [place] [address] [place] [id number] 05/10/2024 TRAY CARRERA [facility] [place] [address] 06/03/2024 Yamilet Coleman Type 2 diabetes mo itus with hyperglycemia E11.65 [facility] [address] [place] [address] 07/04/2024 Yamilet Coleman [facility] [place] [address] 07/04/2024 Yamilet Jared Yeast infection B37. 9 and Type 2 diabetes mellitus with hyperglycemia E11.65 [facility] [place] [address] 08/02/2024 Yamilet Coleman [facility] [place] [address] 09/28/2024 Yamilet Jared [facility] [address] [address] 10/20/2024 TRAY CARRERA Assessments Encounter Date Diagnosis (ICD Code) Assessment Notes Treatment Notes Treatment Clinical Notes Section Notes 12/07/2023 Dysuria (ICD-10 - R30.0) 12/07/2023 Vitamin D deficiency (ICD-10 - E55.9) 12/07/2023 Neuropathy (ICD-10 - G62.9) 12/22/2023 Other screening mammogram (ICD-10 - Z12.31) 01/01/2024 Abnormal uterine and vaginal bleeding, unspecified (ICD-10 - N93.9) discussed making appoitnment with OBGYN for bleeding. she states she wants to wait and see if anti fungal clears it up reports hx of uterine cysts 01/01/2024 Dysuria (ICD-10 - R30.0) UA has 3+ glucose likely yeast infection from jardiacne. will tx with fluconazole. 02/01/2024 Encounter for immunization (ICD-10 - Z23) tolerated flu vaccine well today 02/01/2024 Foot pain, right (ICD-10 - M79.671) will get x rays today. encourgaed rest and supportive shoes 02/03/2024 Anxiety (ICD-10 - F41.9) 02/05/2024 Foot pain, right (ICD-10 - M79.671) awaiting podiatry encourgaed rest and supportive shoes will send NSAIDS to try and lidocaine gel to help with pain relief. 02/12/2024 Type 2 diabetes mellitus with hyperglycemia (ICD-10 - E11.65) Ricky-Bin 02/25/2024 Annual physical exam (ICD-10 - Z00.00) see HPI for wellness 03/04/2024 Anxiety (ICD-10 - F41.9) 03/21/2024 Dysuria (ICD-10 - R30.0) 03/21/2024 COVID-19 (ICD-10 - U07.1) cont treatment. limit exposure 03/28/2024 Acute frontal sinusitis, unspecified (ICD-10 - J01.10) Will tx for sinus infection today. rest and hydration discussed nasal saline rinse in which she declines 03/28/2024 Acute bacterial conjunctivitis of right eye (ICD-10 - H10.31) 04/05/2024 Gastroesophageal reflux disease without esophagitis (ICD-10 - K21.9) 04/27/2024 Type 2 diabetes mellitus with hyperglycemia (ICD-10 - E11.65) Ricky-Bin A1c 6.3% she reports doing well with medicaitons 04/27/2024 COPD without exacerbation (ICD-10 - J44.9) stable. has stopped smoking 6 months ago she reports breathing is better she kirill any wheezing. no exacerbations 05/06/2024 Type 2 diabetes mellitus with hyperglycemia (ICD-10 - E11.65) Ricky-Bin 05/16/2024 Type 2 diabetes mellitus with hyperglycemia (ICD-10 - E11.65) Ricky-Bin A1c 6.3% she reports doing well with medicaitons 05/16/2024 Acute frontal sinusitis, unspecified (ICD-10 - J01.10) will tx for sinus infection due to sx for 1 week discussed supportive care with decongestants and rest and hydration 06/03/2024 Type 2 diabetes mellitus with hyperglycemia (ICD-10 - E11.65) Ricky-Bin 07/04/2024 Yeast infection (ICD-10 - B37.9) 07/08/2024 Type 2 diabetes mellitus with hyperglycemia (ICD-10 - E11.65) Ricky-Bin A1c 6.3% she reports doing well with medicaitons 07/08/2024 COPD without exacerbation (ICD-10 - J44.9) stable. has stopped smoking she reports breathing is better she kirill any wheezing. no exacerbations 08/05/2024 Pneumonia, unspecified organism (ICD-10 - J18.9) Will treat with antibiotics due to history and symptoms Encourage rest, hydration, and supportive care 08/05/2024 Acute cough (ICD-10 - R05.1) 08/12/2024 Essential (primary) hypertension (ICD-10 - I10) Ricky-Bin BP under good control with current regimen, discussed low salt diet, measuring BP some times. cont. current meds. 08/23/2024 Restless leg (ICD-10 - G25.81) 08/23/2024 Low back pain, unspecified (ICD-10 - M54.50) 09/26/2024 Malignant neoplasm of unspecified part of unspecified bronchus or lung (ICD-10 - C34.90) follows with pulm and oncology. doing well 09/26/2024 Type 2 diabetes mellitus with hyperglycemia (ICD-10 - E11.65) Ricky-Bin A1c 6.3% she reports doing well with medicaitons 08/12/2024 Chest pain at rest (ICD-10 - R07.9) EKG-normal sinus rhythm Pt to anika cariologist's office about cp. 09/29/2024 Malignant neoplasm of unspecified part of unspecified bronchus or lung (ICD-10 - C34.90) follows with pulm and oncology pt would benefit from home health due to starting treatment 09/29/2024 Pneumonia, unspecified organism (ICD-10 - J18.9) Will treat with antibiotics due to history and symptoms Encourage rest, hydration, and supportive care pt is currently on dexamethasone for swelling on brain 10/21/2024 Malignant neoplasm of unspecified part of unspecified bronchus or lung (ICD-10 - C34.90) follows with pulm and oncology pt would benefit from home health due to starting treatment 10/21/2024 Pneumonia, unspecified organism (ICD-10 - J18.9) Will treat with antibiotics due to history and symptoms. pt recent tx for PNA , Encourage rest, hydration, and supportive care pt is currently on dexamethasone for swelling on brain 09/29/2024 Acute cough (ICD-10 - R05.1) 10/21/2024 Essential (primary) hypertension (ICD-10 - I10) increasing carvediolol dose today 08/12/2024 COPD without exacerbation (ICD-10 - J44.9) 08/23/2024 Anemia, unspecified (ICD-10 - D64.9) Could likely be causative actor of restless legs. Mild anemia will treat with PO iron and reassess. 09/26/2024 Dysuria (ICD-10 - R30.0) 08/05/2024 COPD without exacerbation (ICD-10 - J44.9) stable. has stopped smoking 07/08/2024 Congenital multiple renal cysts (ICD-10 - Q61.02) reviewed renal US showed bilateral renal cyst hx of cyst. high risk due to malignancy. she has had PET scan , nml 07/04/2024 Type 2 diabetes mellitus with hyperglycemia (ICD-10 - E11.65) Ricky-Bin 05/16/2024 COPD without exacerbation (ICD-10 - J44.9) stable. has stopped smoking 6 months ago she reports breathing is better she kirill any wheezing. no exacerbations 03/21/2024 Yeast infection (ICD-10 - B37.9) Will tx for yeast infection . UA unremarkable hydration 04/27/2024 Congenital multiple renal cysts (ICD-10 - Q61.02) pt going for renal US today. hx of cyst. high risk due to malignancy. labs stable. will put with neph here for f/u 04/05/2024 COPD without exacerbation (ICD-10 - J44.9) 02/25/2024 Type 2 diabetes mellitus with hyperglycemia (ICD-10 - E11.65) Ricky-Bin stable will get labs done today 02/03/2024 Neuropathy (ICD-10 - G62.9) 01/01/2024 Vitamin D deficiency (ICD-10 - E55.9) 12/07/2023 Gastroesophageal reflux disease without esophagitis (ICD-10 - K21.9) 12/07/2023 Anxiety (ICD-10 - F41.9) 01/01/2024 Gastroesophageal reflux disease without esophagitis (ICD-10 - K21.9) 02/03/2024 Type 2 diabetes mellitus with hyperglycemia (ICD-10 - E11.65) 02/25/2024 Mixed hyperlipidemia (ICD-10 - E78.2) Ricky-Bin 03/21/2024 Vitamin D deficiency (ICD-10 - E55.9) 05/16/2024 Congenital multiple renal cysts (ICD-10 - Q61.02) reviewed renal US showed bilateral renal cyst hx of cyst. high risk due to malignancy. 04/27/2024 Gastroesophageal reflux disease without esophagitis (ICD-10 - K21.9) stable on protonix 08/05/2024 Malignant neoplasm of unspecified part of unspecified bronchus or lung (ICD-10 - C34.90) follows with pulm and oncology 07/08/2024 Gastroesophageal reflux disease without esophagitis (ICD-10 - K21.9) stable on protonix 08/12/2024 Chronic kidney disease (CKD), stage II (mild) (ICD-10 - N18.2) 09/29/2024 Weakness generalized (ICD-10 - R53.1) working with [employer] and insurance so patient can keep her wheelchair she will need this to help with visits. starting chemo and radiation soon 09/26/2024 COPD without exacerbation (ICD-10 - J44.9) stable. has stopped smoking she reports breathing is better she kirill any wheezing. no exacerbations 10/21/2024 Acute cough (ICD-10 - R05.1) 10/21/2024 Weakness generalized (ICD-10 - R53.1) 09/26/2024 Congenital multiple renal cysts (ICD-10 - Q61.02) reviewed renal US showed bilateral renal cyst hx of cyst. high risk due to malignancy. she has had PET scan , nml 09/29/2024 COPD without exacerbation (ICD-10 - J44.9) stable. has stopped smoking 07/08/2024 Neuropathy (ICD-10 - G62.9) stable. tx from oncology 05/16/2024 Gastroesophageal reflux disease without esophagitis (ICD-10 - K21.9) stable on protonix 03/21/2024 Gastroesophageal reflux disease without esophagitis (ICD-10 - K21.9) 04/27/2024 Neuropathy (ICD-10 - G62.9) stable. tx from oncology 01/01/2024 Anxiety (ICD-10 - F41.9) 02/25/2024 Malignant neoplasm of unspecified part of unspecified bronchus or lung (ICD-10 - C34.90) follows with pulm and oncology, goes for PET scan soon 12/07/2023 Essential (primary) hypertension (ICD-10 - I10) Ricky-Bin BP under good control with current regimen, discussed low salt diet, measuring BP some times. cont. current meds. 12/07/2023 Acute cystitis without hematuria (ICD-10 - N30.00) WIll tx wioth cipro due to hx of sepsis UTI. 01/01/2024 Essential (primary) hypertension (ICD-10 - I10) Ricky-Bin 02/25/2024 Anxiety (ICD-10 - F41.9) wouls like something for stress and sleep will try hydroxyzine 03/21/2024 Type 2 diabetes mellitus with hyperglycemia (ICD-10 - E11.65) Ricky-Bin 04/27/2024 Malignant neoplasm of unspecified part of unspecified bronchus or lung (ICD-10 - C34.90) follows with pulm and oncology. doing well 05/16/2024 Neuropathy (ICD-10 - G62.9) stable. tx from oncology 07/08/2024 Malignant neoplasm of unspecified part of unspecified bronchus or lung (ICD-10 - C34.90) follows with pulm and oncology. doing well 09/29/2024 Anxiety (ICD-10 - F41.9) will increase hydroxyzine to take as needed during the day 10/21/2024 COPD without exacerbation (ICD-10 - J44.9) stable. has stopped smoking 09/26/2024 Gastroesophageal reflux disease without esophagitis (ICD-10 - K21.9) stable on protonix 09/26/2024 Neuropathy (ICD-10 - G62.9) stable. tx from oncology 10/21/2024 Anxiety (ICD-10 - F41.9) will increase hydroxyzine to take as needed during the day 07/08/2024 Mixed hyperlipidemia (ICD-10 - E78.2) Ricky-Bin stable on statin 05/16/2024 Malignant neoplasm of unspecified part of unspecified bronchus or lung (ICD-10 - C34.90) follows with pulm and oncology. doing well 03/21/2024 COPD without exacerbation (ICD-10 - J44.9) 04/27/2024 Mixed hyperlipidemia (ICD-10 - E78.2) Ricky-Bin stable on statin 02/25/2024 COPD without exacerbation (ICD-10 - J44.9) 01/01/2024 Neuropathy (ICD-10 - G62.9) 12/07/2023 Type 2 diabetes mellitus with hyperglycemia (ICD-10 - E11.65) WIll add januvia to regimen. encouraged low carb diet. 01/01/2024 Screening for breast cancer (ICD-10 - Z12.31) will order mammogram 12/07/2023 Neuropathy (ICD-10 - G62.9) Dependance and Tolerance discussed, Garret reviewed. drug screen consistent 2 months ago. last fill and will self taper dose. discussed talking to oncology about gabapentin rx. pt understands. 02/25/2024 Essential (primary) hypertension (ICD-10 - I10) 04/27/2024 Allergic rhinitis (ICD-10 - J30.9) cont regimen 05/16/2024 Mixed hyperlipidemia (ICD-10 - E78.2) Rciky-Bin stable on statin 07/08/2024 Allergic rhinitis (ICD-10 - J30.9) cont regimen 09/26/2024 Mixed hyperlipidemia (ICD-10 - E78.2) Ricky-Bin stable on statin 09/26/2024 Fatigue, unspecified type (ICD-10 - R53.83) 07/08/2024 Vitamin D deficiency (ICD-10 - E55.9) 05/16/2024 Allergic rhinitis (ICD-10 - J30.9) cont regimen 02/25/2024 Dysuria (ICD-10 - R30.0) 04/27/2024 Vitamin D deficiency (ICD-10 - E55.9) 12/07/2023 Bronchitis (ICD-10 - J40) 01/01/2024 Type 2 diabetes mellitus with hyperglycemia (ICD-10 - E11.65) Ricky-Bin 02/25/2024 Hypomagnesemia (ICD-10 - E83.42) 05/16/2024 Vitamin D deficiency (ICD-10 - E55.9) 07/08/2024 Essential (primary) hypertension (ICD-10 - I10) Ricky-Bin BP under good control with current regimen, discussed low salt diet, measuring BP some times. cont. current meds. 09/26/2024 Allergic rhinitis (ICD-10 - J30.9) cont regimen 09/26/2024 Vitamin D deficiency (ICD-10 - E55.9) 07/08/2024 Chronic kidney disease (CKD), stage II (mild) (ICD-10 - N18.2) 02/25/2024 Chronic kidney disease (CKD), stage II (mild) (ICD-10 - N18.2) 02/25/2024 Fatigue, unspecified type (ICD-10 - R53.83) 07/08/2024 Nail fungus (ICD-10 - B35.1) 05/16/2024 Essential (primary) hypertension (ICD-10 - I10) Ricky-Bin 09/26/2024 Essential (primary) hypertension (ICD-10 - I10) Ricky-Bin BP under good control with current regimen, discussed low salt diet, measuring BP some times. cont. current meds. 09/26/2024 Chronic kidney disease (CKD), stage II (mild) (ICD-10 - N18.2) 05/16/2024 Dysuria (ICD-10 - R30.0) 07/08/2024 Fatigue, unspecified type (ICD-10 - R53.83) 02/25/2024 Neuropathy (ICD-10 - G62.9) 02/25/2024 Vitamin D deficiency (ICD-10 - E55.9) 05/16/2024 Hypomagnesemia (ICD-10 - E83.42) 05/16/2024 Chronic kidney disease (CKD), stage II (mild) (ICD-10 - N18.2) 05/16/2024 Fatigue, unspecified type (ICD-10 - R53.83) Plan Of Treatment Pending Test Test Name Order Date Uric Acid, Serum 04/03/2023 Hemoglobin A1c 04/03/2023 Vitamin B12 04/03/2023 Magnesium, Serum 04/03/2023 Prot+CreatU (Random) 04/03/2023 Urinalysis, Complete 04/03/2023 CBC With Differential/Platelet 3 Vitamin D, 25-Hydroxy 04/03/2023 Respiratory Profile, PCR 05/16/2024 Lipid Panel With LDL/HDL Ratio Comp. Metabolic Panel (14) 04/03/2023 Next Appt Details Provider Name:Yamilet Brown Esteban heath, 11/22/2024 10:15:00 AM, [address], [place], [address], Provider Name:Yamilet Brown Esteban heath, 02/27/2025 10:30:00 AM, [address], [place], [address], Insurance Providers Payer Name Payer Address Payer Phone Subscriber Number Group Number Insured Name Patient Relationship to Insured Coverage Start Date Coverage End Date [employer] [place] [address] [address] [place] [address] [id number] Teresa Rivera Self - patient is the insured Medical (General) History Medical History History ICD Code Hypertension (Ricky)High Cholesterol (Ricky) Arthritis (Ricky)Diabetes (Ricky) Surgical History Surgery Date(Month/Year) No Surgeries As Of Todays Date Hospitalization History Reason Date(Month/Year) Pneumonia 06/2017
--- OUTSIDE RECORDS SUMMARY | 2024-11-15 14:01 | XMS_ITS | Encounter Summary ---
Author Organization Healthcare Address [address] [place] [address] Care Team Providers Care Firewall Administrator Name Role Phone Paola Hyde APRN Primary Care Provider [phone] Laurie Gutierrez MD Primary Care Provider [phone] Joshua Martínez MD Unavailable Jasmina Smith LPN Unavailable Unavailable Encounter Details Date Type Department Care Team (Late Contact Info) Description 09/01/2023 Orders Only External Location [address] [place] [address] Provider, External 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 Tobacco [...] [facility] [address] [facility] [place] [address] 11/29/2024 11:00 AM EDT Office Visit [facility] [address] [facility] [place] [address] Satnam Colvin MD [address] [facility] [address] [phone] 11/29/2024 12:30 PM EDT Appointment [facility] [address] [place] [phone] 11/30/2024 1:30 PM EDT Appointment [facility] [address] [place] [phone] 12/01/2024 2:00 PM EDT Appointment [facility] [address] [place] [phone] 12/06/2024 11:40 AM EDT Appointment [facility] [address] [id number] [place] [address] Haven Blum, ACTIVITY LEADER [address] [facility] [id number] [place] [id number] 01/19/2025 9:30 AM EDT Appointment [facility] [address] [place] [phone] 01/19/2025 10:45 AM EDT Office Visit [facility] [address] [place] [address] Abhilash Bangura MD [address] [place] [address] 03/08/2025 1:00 PM EDT Office Visit [facility] [place] [facility] [address] [place] [phone] Teresita Oconnell MD [address] [place] [address] documented as of this encounter Procedures Procedure Name Priority Date/Time Associated Diagnosis Comments MR NEURO OUTSIDE IMAGES 09/01/2023 2:50 PM EDT documented in this encounter Results * MR NEURO OUTSIDE IMAGES (09/01/2023 2:50 PM EDT) Anatomical Region Laterality Modality Magnetic Resonan ce 09/01/2023 2:50 PM EDT us External Provider IMG MRI PROCEDURES Final Resul t documented in this encounter Visit Diagnoses Not on filedocumented in this encounter Additional Health Concerns Infection Onset Date Last Indicated Resolved Time Respiratory Rule-Out 10/12/2024 10/12/2024 025 7:53 PM EDT Meningitis Rule-Out 10/14/2024 10/14/2024 10/15/19 11:54 AM EDT COVID-19 Rule-Out 10/25/2024 10/25/2024 10/25/2024 12:13 PM EDT Respiratory Rule-Out 10/25/2024 10/25/2024 025 3:07 PM EDT 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, 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
--- OUTSIDE RECORDS SUMMARY | 2024-11-15 14:01 | XMS_ITS | Clinical Summary ---
Author Organization [facility] Address [address] [place] [address] Care Team Providers Care Senior Ios Software Engineer Name Role Phone Laurie Gutierrez MD Primary Care Provider [phone] Joshua Martínez MD Unavailable Allergies Active Allergy Reactions Criticality Noted Date Comments Cephalexin Other - please docum ent in the comment field Low 11/19/2023 Patient states makes her feel tired Lisinopril Cough,Other - please document in the comment field Low 11/19/2023 Meloxicam Cough,Other - please document in the comment field Low 06/30/2016 Medications atorvastatin (Lipitor) 40 MG tablet Take 1 tablet by mouth daily. Active Calcium Carb-Cholecal ciferol 600-10 MG-MCG tablet Take 1 tablet by mouth daily. Active cetirizine (ZyrTEC) 10 MG tablet Take 1 tablet by mouth daily. Active Vitamin B-12 ER 1000 MCG tablet controlled-re lease Take 1 tablet by mouth Daily. Active FLUoxetine (PROzac) 40 MG capsule Take 1 capsule by mouth daily. Active Xarelto 20 MG tablet Take 1 tablet by mouth every evening. Active empagliflozin (Jardiance) 25 MG Take 1 tablet by mouth daily. Active pantoprazole (Protonix) 40 MG EC tablet Take 1 tablet by mouth daily. Do not crush, chew, or split. Active SITagliptin (Januvia) 50 MG tablet Take 1 tablet by mouth daily. Active montelukast (Singulair) 10 MG tablet Take 1 tablet by mouth nightly. Active triamterene-h ydrochlorothi azide (Maxzide-25) 37.5-25 MG tablet Take 1 tablet by mouth every morning. Active hydrOXYzine HCl (Atarax) 25 MG tablet Take 1 tablet by mouth 3 times a day as needed. Active metFORMIN (Glucophage) 1000 MG tablet Take 1 tablet by mouth 2 times a day with meals. Active tiZANidine (Zanaflex) 2 MG tablet Take 1 tablet by mouth nightly. Active Budeson-Glyco pyrrol-Formot anne (Breztri Aerosphere) 160-9-4.8 MCG/ACT aerosol Inhale 2 puffs 2 (two) times a day. Active melatonin tablet Take 2 tablets by mouth nightly. Active rOPINIRole (Requip) 1 MG tablet Take 1 tablet by mouth 2 times a day. Active magnesium oxide (Mag-Ox) 400 MG tablet Take 1 tablet by mouth 2 times a day. Hold for diarrhea 60 tablet 1 10/05/19 25 Active ferrous sulfate 325 (65 Fe) MG tablet Take 1 tablet by mouth daily with breakfast. Active calcium carbonate (Tums) 500 MG chewable tablet Chew 1 tablet 4 times a day as needed for indigestion or heartburn. Active dexamethasone (Decadron) 2 MG tablet Take 1 tablet by mouth every 12 hours. 10 tablet 10/19/19 25 Active benzonatate (Tessalon) 100 MG capsule Take 1 capsule by mouth 3 times a day as needed for cough. Do not crush or chew. 20 capsule 10/19/19 25 Active magic mouthwash BLM (FIRST-Mouthw tamir) suspension Swish and spit 15 mL 4 times a day before meals and nightly for 3 days. 180 mL 10/19/19 25 Active insulin lispro (Admelog, HumaLOG) 100 UNIT/ML injection pen Inject 15 Units under the skin 3 times a day with meals. Active magic butt balm (Cholestyrami ne) CMPD (Magic Butt) Apply 1 Application topically every 1 hour as needed for diaper rash. 80 g 11/01/19 25 025 Active insulin glargine (Lantus) 100 UNIT/ML injection vial Inject 25 Units under the skin nightly. 10 mL 3 11/01/19 25 Active pen needle, diabetic 31G X 5 MM misc Use as directed with insulin pen. 100 each 11 11/01/19 25 Active NovoLOG FLEXPEN 100 UNIT/ML injection pen Inject under the skin 3 (three) times daily with meals per correction scale as follows: blood sugar 150-199 use 2 units, 200-249 use 4 units, 250-299 use 6 units, 300-349 use 8 units, 350-399 use 10 units, >399 12 units and call provider. 15 mL 3 11/01/19 25 Active glucose (Trueplus Glucose) 4 g chewable tablet Chew 4 tablets as needed for low blood sugar. 50 tablet 12 11/01/19 25 Active metoprolol succinate XL (Toprol-XL) 50 MG 24 hr tablet Take 1 tablet by mouth daily. Do not crush or chew. 90 tablet 11/02/19 25 Active omeprazole (PriLOSEC) [address] capsule Take 1 capsule by mouth daily. Active cholestyramin e light (Prevalite) 4 GM/DOSE powder Take 1 packet by mouth 2 times a day with meals. 11/01/19 25 Active estradiol (Estrace) 0.1 MG/GM vaginal cream Insert 2 g into the vagina daily. Active mupirocin (Bactroban) 2 % ointment Apply on head 2 times a day 22 g 11/09/19 25 Active Probiotic, Lactobacillus , capsule Take 1 capsule by mouth daily. 30 capsule 1 11/09/19 25 025 Active prochlorperaz ine (Compazine) 10 MG tabletIndicat ions:Extensiv e stage primary small cell carcinoma of lung Take 1 tablet by mouth every 6 hours as needed for nausea or vomiting. 30 tablet 3 11/09/19 25 Active gabapentin (Neurontin) 600 MG tablet Take 1 tablet by mouth 4 times a day. 120 tablet 11/09/19 25 Active ondansetron (Zofran) 8 MG tabletIndicat ions:Extensiv e stage primary small cell carcinoma of lung Take 1 tablet by mouth 2 times a day. Take on Day 4 of cycle and then take PRN 30 tablet 5 11/09/19 25 Active nystatin (Mycostatin) 020361 UNIT/GM powder Apply on bottom 2 times a day 30 g 11/09/19 25 Active lidocaine (Xylocaine) 5 % ointment Apply 2 times a day. 30 g 11/09/19 25 Active benzonatate (Tessalon) 200 MG capsule Take 1 capsule by mouth 3 times a day as needed for cough. 025 Discontinued(St op Taking at Discharge) carvedilol (Coreg) 12.5 MG tablet Take 1 tablet by mouth 2 times a day with meals. 025 Discontinued gabapentin (Neurontin) 600 MG tablet Take 1 tablet by mouth 4 times a day. 025 Discontinued(Re order) ondansetron (Zofran) 8 MG tablet Take 1 tablet by mouth every 8 hours as needed for nausea or vomiting. 025 Discontinued(En tered in Error) ciclopirox (Penlac) 8 % solution Apply over affected nail fold daily. Discontinued(En tered in Error) dexamethasone (Decadron) 2 MG tablet Take 2 tablets by mouth every 8 hours for 4 days, THEN 2 tablets every 12 hours for 4 days, THEN 1 tablet every 12 hours. 09/10/19 025 Discontinued(St op Taking at Discharge) insulin glargine-yfgn 100 UNIT/ML injection vial Inject 45 Units under the skin nightly. Can be adjusted per the MD at [facility] 09/10/19 025 Discontinued(St op Taking at Discharge) Insulin Lispro (Admelog, HumaLOG) 100 UNIT/ML injection vial Inject 15 Units under the skin 3 times a day with meals. Can be adjusted per the MD at [facility] 09/10/19 025 Discontinued levETIRAcetam (Keppra) 500 MG tablet Take 1 tablet by mouth 2 times a day. 09/10/19 025 Discontinued(St op Taking at Discharge) senna (Senokot) 8.6 MG tablet Take 2 tablets by mouth nightly. 09/10/19 25 025 Discontinued(St op Taking at Discharge) Accu-Chek Softclix Lancets lancets USE TO TEST BLOOD SUGAR 3 TIMES EACH DAY 09/02/19 025 Discontinued(En tered in Error) B-D UF III MINI PEN NEEDLES 31G X 5 MM misc 09/20/19 025 Discontinued(En tered in Error) Blood Glucose Monitoring Suppl (GiveNext Verio Flex System) w/Device kit 09/20/19 025 Discontinued(En tered in Error) Continuous Glucose Sensor (Dexcom G6 Sensor) [facility] USE DIRECTED TO MEASURE BLOOD SUGAR. REPLACE SENSOR EVERY 10 DAYS 09/02/19 025 Discontinued(En tered in Error) FREESTYLE LITE test strip USE TO TEST BLOOD SUGAR 3 TIMES EACH DAY AND NEEDED 09/02/19 025 Discontinued(En tered in Error) Alcohol Swabs (Easy Touch Alcohol Prep Medium) 70 % pads 09/20/19 025 Discontinued(En tered in Error) ondansetron (Zofran) 8 MG tabletIndicat ions:Extensiv e stage primary small cell carcinoma of lung Take 1 tablet by mouth 2 times a day. Take on Day 4 of cycle and then take PRN 30 tablet 5 10/05/19 025 Discontinued(Re order) prochlorperaz ine (Compazine) 10 MG tabletIndicat ions:Extensiv e stage primary small cell carcinoma of lung Take 1 tablet by mouth every 6 hours as needed for nausea or vomiting. 30 tablet 3 10/05/19 025 Discontinued(Re order) insulin glargine-yfgn 100 UNIT/ML injection vial Inject 20 Units under the skin nightly. 10 mL 3 10/19/19 025 Discontinued(En tered in Error) Insulin Lispro (Admelog, HumaLOG) 100 UNIT/ML injection vial Inject 15 Units under the skin 3 times a day with meals. Can be adjusted per the MD at [facility] 10 mL 12 10/19/19 025 Discontinued(En tered in Error) nystatin (Mycostatin) 012504 UNIT/ML suspension Swish and swallow 5 mL 4 times a day for 39 doses. 195 mL 10/19/19 025 Discontinued(St op Taking at Discharge) lidocaine (Xylocaine) 2 % solution Take 5 mL by mouth as needed for mild pain. 10/19/19 025 Discontinued(En tered in Error) Lantus SoloStar 100 UNIT/ML injection pen Inject under the skin 2 times a day. 10/19/19 025 Discontinued(En tered in Error) Continuous Glucose Postal Superintendent (Dexcom G7 Postal Superintendent) device USE TO MEASURE BLOOD SUGAR DIRECTED 09/30/19 025 Discontinued(En tered in Error) metoprolol succinate XL (Toprol-XL) 25 MG 24 hr tablet Take 2 tablets by mouth daily. Do not crush or chew. 60 tablet 11 10/26/19 25 025 Discontinued(St op Taking at Discharge) insulin glargine (Lantus) 100 UNIT/ML injection vial Inject 20 Units under the skin nightly. 025 Discontinued carvedilol (Coreg) 25 MG tablet Take 1 tablet by mouth 2 times a day. 025 Discontinued Active Problems Problem Noted Date Diagnosed Date Anxiety 10/25/2024 Acute exacerbation of chronic obstructive airway s disease 10/25/2024 Immunocompromised state 10/25/2024 Incontinence 10/25/2024 Irritable bowel syndrome 10/25/2024 Neuropathy 10/25/2024 Other specified disorders of bladder 10/25/2024 Tobacco dependence 10/25/2024 Vertebrogenic low back pain 10/25/2024 Pneumonia of right upper lobe due to infectious organism 10/25/2024 Other malaise 09/17/2024 Other sequelae of other nont raumatic intracranial hemorrhage 09/17/2024 Unspecified abnormalities of gait and mobility 0 09/17/2024 Extensive stage primary small cell carcinoma of lung 09/09/2024 Metastasis to brain 09/09/2024 Assessment & Plan (11/01/2024 11:48 AM EDT): Morbid (severe) obesity due to excess calories 0 09/09/2024 Cerebral edema 09/09/2024 Functional urinary incontinence 09/08/2024 Other chronic pain 09/07/2024 Anemia 09/06/2024 Other abnormalities of gait and mobility 025 Weakness 09/06/2024 Paroxysmal atrial fibrillation 09/06/2024 Anesthesia of skin 09/03/2024 Other symptoms and signs inv olving the musculoskeletal system 09/03/2024 Obesity (BMI 35.0-39.9 without comorbidity) 08/16 Morbid obesity with BMI of 40.0-44.9, adult 08/16 Right leg weakness 09/01/2024 Atelectasis 09/01/2024 Atherosclerosis of aorta 09/01/2024 Compression of vein 09/01/2024 Diverticulosis of intestine, part unspecified, without perforation or abscess without bleeding 09/01/2024 Localized swelling, mass and lump, head 09/02/19 Cyst of kidney, acquired 09/01/2024 Other disorders of lung 09/01/2024 Brain mass 08/31/2024 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 08/31/2024 Unspecified atrial fibrillation 08/31/2024 Spinal stenosis, lumbar matias on without neurogenic claudication 08/31/2024 Unspecified right bundle-branch block 08/31/2024 Restless legs 08/23/2024 Chest pain, unspecified 08/12/2024 Stage 2 chronic kidney disease 08/12/2024 Pneumonia, unspecified organism 08/05/2024 Dyspnea, unspecified 07/19/2024 Solitary pulmonary nodule 07/19/2024 Allergic rhinitis 07/08/2024 Congenital multiple renal cysts 07/08/2024 Dysuria 07/08/2024 Hypomagnesemia 07/08/2024 Other fatigue 07/08/2024 Polyneuropathy, unspecified 07/08/2024 Cardiomegaly 06/24/2024 Presbyopia 06/16/2024 Hereditary and idiopathic neuropathy, unspecifie d 05/19/2024 Acute upper respiratory infection, unspecified 1 Glycosuria 04/20/2024 Urinary tract infection, site not specified 08/2023 Plantar fascial fibromatosis 04/11/2024 Short Achilles tendon (acquired), right ankle Acute frontal sinusitis, unspecified 03/28/2024 Unspecified acute conjunctivitis, right eye 03/18 Candidiasis, unspecified 03/21/2024 Vitamin D deficiency 03/21/2024 Pain in right toe(s) 02/25/2024 Tinea unguium 02/25/2024 Pain in right foot 02/05/2024 Abnormal uterine bleeding 01/01/2024 Acute cystitis without hematuria 12/07/2023 Type 2 diabetes mellitus wit h diabetic neuropathy, unspecified 11/20/2023 Palpitations 11/17/2023 Dehydration 11/14/2023 Dizziness and giddiness 11/14/2023 Muscle weakness (generalized) 11/14/2023 Bacteremia 10/28/2023 Chronic respiratory failure with hypoxia 024 Antineoplastic chemotherapy induced pancytopenia 10/27/2023 Diverticular disease of colon 10/26/2023 Acid reflux 10/26/2023 Hyperplastic polyp of large intestine 10/26/2023 Multiple renal cysts 10/26/2023 Thrush 09/14/2023 Malignant neoplasm of upper lobe, right bronchus or lung 08/28/2023 Chemotherapy-induced nausea and vomiting 024 Nausea and vomiting 04/03/2022 Atrophic vaginitis 03/24/2022 Cigarette smoker 03/24/2022 Urethral caruncle 03/24/2022 Hypertensive disorder 03/21/2022 Prieto hematuria 03/21/2022 Hyperlipidemia 04/09/2020 Congenital single renal cyst 05/31/2015 Hyperglycemia due to type 2 diabetes mellitus Type 2 diabetes mellitus without complications 0 08/24/2014 Mixed hyperlipidemia 08/24/2014 Arthralgia of multiple joints 08/25/2013 Arthralgia 08/25/2013 Diabetes mellitus 08/25/2013 Essential hypertension 08/25/2013 Osteoarthritis 08/25/2013 Resolved Problems Problem Noted Date Diagnosed Date Resolved Date Neutropenic fever 10/12/2024 10/18/2024 Sepsis without acute organ dysfunction 10/12/2024 10/18/2024 Subdural hematoma 10/12/2024 10/18/2024 Subarachnoid hemorrhage 10/12/2024 06/0 07/2024 Atrial flutter with rapid ve ntricular response 11/19/2023 10/18/2024 Abdominal bloating 04/03/2022 Encounters Date Type Department Care Team Description 11/14/2024 8:45 AM EDT Hospital Encounter [facility] [id number] [place] [phone] Arrived 11/14/2024 Travel 11/10/2024 2:39 PM EDT - 11/10/2024 11:59 PM EDT Hospital Encounter [facility] [address] [place] [address] 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) Discharge Disposition: Home or Self Care 11/10/2024 Travel 11/09/2024 2:49 PM EDT - 11/09/2024 11:59 PM EDT Hospital Encounter [facility] [address] [place] [address] 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) Discharge Disposition: Home or Self Care 11/09/2024 Travel 11/08/2024 2:00 PM EDT - 11/08/2024 11:59 PM EDT Hospital Encounter [facility] [address] [place] [phone] 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) Discharge Disposition: Home or Self Care 11/08/2024 11:20 AM EDT Office Visit [facility] [address] [address] Satnam Colvin MD 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); Encounter for antineoplastic chemotherapy; Acute hypoxic respiratory failure; Chemotherapy-induced neutropenia (CMS/HCC); Neoplastic (malignant) related fatigue 11/08/2024 11:00 AM EDT Clinical Support [facility] [address] [address] Extensive stage primary small cell carcinoma of lung 11/08/2024 Social Work Psych Oncology [address] [place] [address] Mariah Rowley 11/08/2024 Travel 11/07/2024 12:14 PM EDT - 11/07/2024 11:59 PM EDT Hospital Encounter [facility] [address] [address] Discharge Disposition: Still a Patient 11/07/2024 8:45 AM EDT - 11/07/2024 12:13 PM EDT Hospital Encounter [facility] [address] [phone] Discharge Disposition: Still a Patient 11/07/2024 Orders Only [facility] [address] [phone] Radiation Oncology, PhysicianMD 11/07/2024 Orders Only [facility] [address] [phone] Radiation Oncology, Physician, 11/07/2024 Travel 11/04/2024 10:49 AM EDT - 11/04/2024 11:59 PM EDT Hospital Encounter [facility] [address] [phone] Discharge Disposition: Still a Patient 11/04/2024 Orders Only [facility] [address] [phone] Radiation Oncology, Physician, 11/04/2024 Social Work Psych Oncology [address] [place] [phone] Mariah Rowley 11/02/2024 10:54 AM EDT - 11/02/2024 11:59 PM EDT Hospital Encounter [facility] [address] [phone] Discharge Disposition: Still a Patient 11/02/2024 Social Work Psych Oncology [address] [place] [address] Mariah Rowley 11/02/2024 Orders Only [facility] [address] [phone] Radiation Oncology, Physician, 11/01/2024 10:58 AM EDT - 11/01/2024 11:59 PM EDT Hospital Encounter [facility] [address] [phone] Garrison Marie MD 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CMS/HCC) (Primary Dx) Discharge Disposition: Still a Patient 11/01/2024 10:16 AM EDT - 11/01/2024 10:57 AM EDT Hospital Encounter [facility] [address] [phone] Discharge Disposition: Still a Patient 11/01/2024 Patient Outreach [address], [address] [place] [address] Jasmina Smith LPN TCM Call 11/01/2024 Travel 11/01/2024 Orders Only [facility] [address] [address] Radiation Oncology, Physician, 10/31/2024 8:45 AM EDT - 10/31/2024 11:59 PM EDT Hospital Encounter [facility] [address] [address] Discharge Disposition: Still a Patient 10/31/2024 8:41 AM EDT - 10/31/2024 8:44 AM EDT Hospital Encounter [facility] [address] [address] Discharge Disposition: Still a Patient 10/31/2024 Travel 10/31/2024 Orders Only [facility] [address] [address] Radiation Oncology, Physician, 10/28/2024 8:46 AM EDT - 10/28/2024 11:59 PM EDT Hospital Encounter [facility] [address] [address] Discharge Disposition: Still a Patient 10/28/2024 Social Work Psych Oncology [address] [place] [address] Mariah Rowley 10/28/2024 Orders Only [facility] [address] [address] Radiation Oncology, PhysicianMD 10/27/2024 11:45 AM EDT - 10/27/2024 11:59 PM EDT Hospital Encounter [facility] [address] [address] Discharge Disposition: Still a Patient 10/27/2024 Orders Only [facility] [address] [address] Radiation Oncology, Physician, 10/26/2024 11:30 AM EDT - 10/26/2024 11:59 PM EDT Hospital Encounter [facility] [address] [address] Discharge Disposition: Still a Patient 10/26/2024 Orders Only [facility] [address] [address] Radiation Oncology, PhysicianMD 10/25/2024 12:45 PM EDT - 10/25/2024 11:59 PM EDT Hospital Encounter [facility] [address] [address] Discharge Disposition: Still a Patient 10/25/2024 10:03 AM EDT - 10/31/2024 5:33 PM EDT Hospital Encounter [facility] [address] [place] [address] [place] Bobby MD Lile, Anthony G, MD Pneumonia of right upper lobe due to infectious organism (Primary Dx); Hypoxia; Other fatigue Discharge Disposition: Home or Self Care 10/25/2024 8:40 AM EDT Office Visit [facility] [address] [facility] [place] [address] Vonnie Barksdale PA Atrial flutter with rapid ventricular response (CMS/HCC) (Primary Dx); High risk medication use; Anesthesia of skin 10/25/2024 Orders Only [facility] [address] [address] Radiation Oncology, PhysicianMD 10/25/2024 Travel 10/24/2024 11:48 AM EDT - 10/24/2024 11:59 PM EDT Hospital Encounter [facility] [address] [phone] Discharge Disposition: Still a Patient 10/24/2024 11:47 AM EDT Hospital Encounter [facility] [address] [address] Joshua Martínez MD Discharge Disposition: Still a Patient 10/24/2024 8:59 AM EDT - 10/24/2024 11:46 AM EDT Hospital Encounter [facility] [address] [phone] Discharge Disposition: Still a Patient 10/24/2024 Orders Only [facility] [address] [phone] Radiation Oncology, PhysicianMD 10/24/2024 Travel 10/20/2024 9:22 AM EDT - 10/20/2024 11:59 PM EDT Hospital Encounter [facility] [address] [id number] [place] [address] Discharge Disposition: Still a Patient 10/20/2024 12:10 AM EDT - 10/20/2024 9:21 AM EDT Hospital Encounter [facility] [address] [id number] [place] [phone] Discharge Disposition: Still a Patient 10/19/2024 Patient Outreach [facility] [address] [facility] [address], [address] [place] [address] Jasmina Smith, DRILLING ENGINEERING MANAGER TCM Call 10/19/2024 Telephone [facility] [address] [facility] [place] [phone] Teresita Oconnell MD 10/18/2024 Travel 10/17/2024 Orders Only [facility] [address] [facility] [place] [phone] Rupa De Santiago, PharmD 10/14/2024 Travel 10/13/2024 Travel 10/12/2024 4:08 PM EDT - 10/18/2024 12:48 PM EDT Hospital Encounter [facility] [address] [place] [phone] Sanya Ledezma MD Garrison, Caitlin M, Hyacinth Michael MD Tsering Dolkar, Unknown, MD Febrile neutropenia (CMS/HCC) (Primary Dx); Hypomagnesemia Discharge Disposition: Home or Self Care 10/12/2024 Travel 10/12/2024 Telephone [facility] [address] [place] [phone] Abhilash Bangura MD HCN - Patient Message (Call back ) 10/06/2024 2:22 PM EDT - 10/06/2024 11:59 PM EDT Hospital Encounter [facility] [address] [place] [phone] 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) Discharge Disposition: Home or Self Care 10/06/2024 Travel 10/05/2024 2:13 PM EDT - 10/05/2024 11:59 PM EDT Hospital Encounter [facility] [address] [place] [address] 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) Discharge Disposition: Home or Self Care 10/05/2024 Travel 10/04/2024 11:02 AM EDT - 10/04/2024 11:59 PM EDT Hospital Encounter [facility] [address] [place] [address] 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) Discharge Disposition: Home or Self Care 10/04/2024 10:40 AM EDT Office Visit [facility] [address] [facility] [place] [address] Satnam Colvin MD 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); Brain mass; Type 2 diabetes mellitus without complication, without long-term current use of insulin; Primary hypertension; Encounter for antineoplastic chemotherapy 10/04/2024 10:00 AM EDT Clinical Support [facility] [address] [facility], [address] [place] [address] Extensive stage primary small cell carcinoma of lung 10/04/2024 Social Work Psych Oncology [address] [place] [address] Mariah Rowley 10/04/2024 Travel 10/03/2024 10:06 AM EDT - 10/03/2024 11:59 PM EDT Hospital Encounter [facility] [address] [address] 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CMS/HCC) Discharge Disposition: Still a Patient 10/03/2024 Travel 09/30/2024 Travel 09/26/2024 4:00 PM EDT - 09/26/2024 11:59 PM EDT Hospital Encounter [facility] [address] [address] Discharge Disposition: Still a Patient 09/26/2024 12:55 PM EDT - 09/26/2024 3:59 PM EDT Hospital Encounter [facility] [address] [facility] [id number] [place] [address] Joshua Martínez MD 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CMS/HCC) (Primary Dx); Brain mass Discharge Disposition: Still a Patient 09/26/2024 Travel 09/22/2024 2:45 PM EDT Office Visit [facility] [address] [place] [address] Abhilash Bangura MD 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CMS/HCC) (Primary Dx) 09/22/2024 Orders Only [facility] [address] [place] [address] Abhilash Bangura MD 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CMS/HCC) (Primary Dx) 09/22/2024 Travel 09/20/2024 10:00 AM EDT Office Visit [facility] [address] [facility] [place] [phone] Satnam Colvin MD SDH (subdural hematoma) (CMS/HCC) (Primary Dx); Brain mass; Extensive stage primary small cell carcinoma of lung; Type 2 diabetes mellitus without complication, without long-term current use of insulin; Primary hypertension; Encounter for antineoplastic chemotherapy 09/20/2024 Social Work Psych Oncology [address] [place] [address] Mariah Rowley 09/20/2024 Travel 09/19/2024 Orders Only [facility] [address] [place] [address] Haven Peterson, Type 2 diabetes mellitus with hyperglycemia, without long-term current use of insulin (CMS/HCC) (Primary Dx) 09/13/2024 Telephone [facility] Radiation [id number] [place] [address] Joshua Martínez MD 09/12/2024 Travel 09/05/2024 7:30 AM EDT - 09/05/2024 10:40 AM EDT Surgery [facility] A OPERATING ROOM [address] [place] [address] Abhilash Bangura MD CRANIOTOMY, FOR INTRACRANIAL NEOPLASM EXCISION [[id number] (CPT )] 09/05/2024 7:30 AM EDT Anesthesia Event [facility] A OPERATING ROOM [address] [place] [address] Ry Villalba MD Garrett, Olivia F, DO 09/05/2024 Travel 09/04/2024 Travel 09/01/2024 Travel 08/31/2024 5:55 PM EDT - 09/09/2024 2:27 PM EDT Hospital Encounter P[facility] A Inpatient [facility]ly [facility] [address] [address] Manuel Almonte MD Prabhu, Ashwin B, MD Leung, Stephanie, MD Tackett, Madison S, Right leg weakness (Primary Dx); SDH (subdural hematoma) (CMS/HCC); Brain mass Discharge Disposition: Rehab Facility 08/31/2024 3:20 PM EDT Office Visit [facility] [address] [place] [address] Teresita Oconnell MD Atrial flutter with rapid ventricular response (CMS/HCC) (Primary Dx) 08/31/2024 Travel from Last 3 Months Immunizations Immunization Administration Dates Next Due Hep A, Adult 09/03/2018,02/08/2018 Influenza, Unspecified 04/24/2014,06/03/2013 Influenza, high-dose, quadrivalent 02/14/2020 Influenza, injectable, quadr ivalent, preservative free 02/01/2024,02/11/2019,02/08/2018 Influenza, seasonal, injectable 02/24/20 23,03/17/2022,03/13/2021,02/19,05/27/2013 Moderna COVID-19 Vaccine (Re d Cap) 12+ years 02/06/2021,05/29/2020 Pneumococcal Polysaccharide PPV23 06/17/2018, SARS-CoV-2, Unspecified 05/18/2020 Tdap 09/03/2017 Zoster, Recombinant 06/17/2018 Family History Medical History Relation Name Comments No Known Problems Father No Known Problems Mother Diabetes Other 1 Fibromyalgia Other 2 Relation Name Status Comments Father Mother Other 1 Other 2 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 Tobacco Use Types Packs/Day Years [...] any time in the past 12 m [facility], were you homeless or living in [...] any time in the past 12 m 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) to steady your nerves or to get [...] Mass Index 40.64 11/10/2024 2:43 PM EDT Plan of Treatment Upcoming Encounters Date Type Department Care Team (Late st Contact Info) Description 11/29/2024 10:30 AM EDT Clinical Support [facility] Res[facility] [address] [facility] [address] [place] [phone] 11/29/2024 11:00 AM EDT Office Visit [facility] [address] [phone] Satnam Colvin MD [address] [facility] Nuria Degroot [address] [address] 11/29/2024 12:30 PM EDT Appointment [facility] [address] [place] [phone] 11/30/2024 1:30 PM EDT Appointment [facility] 1 [address] [place] [phone] 12/01/2024 2:00 PM EDT Appointment [facility] 1 [address] [place] [phone] 12/06/2024 11:40 AM EDT Appointment [facility] Rad[facility] [id number] [place] [phone] Haven Blum, CANVAS MARKER [id number] [place] [phone] 01/19/2025 9:30 AM EDT Appointment [facility] S Radiology [address] [place] [address] 01/19/2025 10:45 AM EDT Office Visit [facility] [address] [place] [address] Abhilash Bangura MD [address] [place] [address] 03/08/2025 1:00 PM EDT Office Visit [facility] [place] [facility] [address] [place] [phone] Teresita Oconnell MD [address] [place] [address] Health Maintenance Due Date Last Done Comments [facility]-Infant/Child/Adol SDOH Screenings 1960 Diabetes: Dental Exam 1970 [facility]-Pap Smear 1981 [facility]-Cervical Cancer Screening 1990 [facility]-HPV/Cotest 1990 CT Colonography 2005 Colonoscopy 2005 FIT-DNA 2005 FIT 2005 FOBT 2005 Sigmoidoscopy 2005 [facility]-Colorectal Cancer Screening 2005 [facility]-Zoster Vaccines (2 of 2) 08/12/2018 06/17/2018 [facility]-Pneumococcal Vaccine: 50+ Years (3 of 3 - PCV) 06/17/2019 06/17/2018, 07/13/2017 [facility]-RSV Vaccine: 60+ Years or (1 - Risk 60-74 years 1-dose series) 2020 [id number]-80 Vaccine (9 - Mixed Product risk season) 2024 03/15/2024, 06/11/2023, 07/01/2022, Additional history exists [facility]-Influenza Vaccine (#1) 01/16/202501/31, 02/23/2023, 03/17/2022, Additional history exists [facility]-Diabetes: Hemoglobin A1C 03/02/2025 09/02/2024, 11/19/2023 [facility]- SDOH Screenings 04/27/2025 [facility]-Adult SDOH Screenings 04/27/2025 10/26/2024 [facility]-Depression Screening 08/31/2025 08/31/2024, 08/16 [facility]-Breast Cancer Screening 01/14/2026 01/15/2024, 0 01/15/2024 [facility]-DTaP,Tdap,and Td Vaccines (2 - Td or Tdap) 09/04/2027 09/03/2017 [facility]-Hepatitis A Vaccines Aged Out 09/03/2018, 01/17 No longer eligible based on patient's age to complete this topic [facility]-HIV Screening Completed 08/31/2024 [facility]-Hepatitis C Screening Completed 08/31/2024, 02/2014 [facility]-Lung Cancer Screening Discontinued 2024, 10/13/2024, 09/01/2024 [facility]-Obesity Intervention Completed 025, 10/25/2024, 10/25/2024, Additional history exists HPV Vaccines Aged Out No longer eligi ble based on patient's age to complete this topic [facility]-HIB Vaccines Aged Out No longer e ligible based on patient's age to complete this topic [facility]-IPV Vaccines Aged Out No longer e ligible based on patient's age to complete this topic [facility]-Rotavirus Vaccines Aged Out No lo nger eligible based on patient's age to complete this topic Medical Devices Implanted Type Area Blender Conveyor Operator Device Identifier Shelf Expiration Date Model / Serial / Lot Graft Dura Repair 2x2 Synthe[employer] - [id number] Implanted:Qty: 1 on 09/05/2024 by Abhilash Bangura MD at [facility] [id number] 03/17/2026 [id number] / / [id number] Screw Ti Matrixneuro Selfdrill 4mm - S. - [id number] Implanted:Qty: 12 on 09/05/2024 by Abhilash Bangura MD at [facility] [employer] [place]-[id number] 09/05/2025 [id number] / . / Plate, 2 Hole Low Profile - S. - [id number] Implanted:Qty: 2 on 09/05/2024 by Abhilash Bangura MD at [facility] [employer] [id number] 09/05/2025 [id number] / . / Cover, Neuro Vernon Lp 17mm - S. - [id number] Implanted:Qty: 2 on 09/05/2024 by Abhilash Bangura MD at [facility] [employer] [facility]-[id number] 09/05/2025 [id number] / . / Procedures Procedure Name Priority Date/Time Associated Diagnosis Comments MAGNESIUM, PLASMA STAT 11/08/2024 11:36 AM EDT Extensive stage primary small cell carcinoma of lung COMPREHENSIVE METABOLIC PANEL, PLASMA Routine 11/08/2024 11:36 AM EDT Extensive stage primary small cell carcinoma of lung CBC WITH AUTO DIFFERENTIAL Routine 11/08/2024 11:36 AM EDT Extensive stage primary small cell carcinoma of lung RAD ONC ARIA COURSE SUMMARY Routine 11/07/2024 2:16 PM EDT RAD ONC ARIA SESSION SUMMARY Routine 11/07/2024 12:40 PM EDT RAD ONC ARIA SESSION SUMMARY Routine 11/04/2024 11:02 AM EDT RAD ONC ARIA SESSION SUMMARY Routine 11/02/2024 11:20 AM EDT RAD ONC ARIA SESSION SUMMARY Routine 11/01/2024 10:56 AM EDT POCT GLUCOSE METER UNSOLICITED RESULTS Routine 10/31/2024 4:36 PM EDT POCT GLUCOSE METER UNSOLICITED RESULTS Routine 10/31/2024 11:24 AM EDT WILBUR AURIS SURVEILLANCE BY PCR Pending Discharge 10/31/2024 10:43 AM EDT RAD ONC ARIA SESSION SUMMARY Routine 10/31/2024 8:41 AM EDT POCT GLUCOSE METER UNSOLICITED RESULTS Routine 10/31/2024 7:37 AM EDT POCT GLUCOSE METER UNSOLICITED RESULTS Routine 10/31/2024 3:49 AM EDT MORPHOLOGY Routine 10/31/2024 12:21 AM EDT MANUAL DIFFERENTIAL Routine 10/31/2024 12:21 AM EDT CBC WITH AUTO DIFFERENTIAL Routine 10/31/2024 12:21 AM EDT MAGNESIUM, PLASMA Routine 10/31/2024 12:21 AM EDT BASIC METABOLIC PANEL, PLASMA Routine [...] UNSOLICITED RESULTS Routine 10/28/2024 11:28 AM EDT RAD ONC ARIA SESSION SUMMARY Routine 10/28/2024 8:57 AM EDT POCT GLUCOSE METER UNSOLICITED RESULTS Routine 10/28/2024 7:33 AM EDT POCT GLUCOSE METER UNSOLICITED RESULTS Routine 10/28/2024 3:06 AM EDT MAGNESIUM, PLASMA Routine 10/28/2024 3:0 0 AM EDT BASIC METABOLIC PANEL, PLASMA Routine 10/28/2024 3:00 AM EDT POCT GLUCOSE METER UNSOLICITED RESULTS Routine 10/27/2024 9:38 PM EDT POCT GLUCOSE METER UNSOLICITED RESULTS Routine 10/27/2024 4:51 PM EDT RAD ONC ARIA SESSION SUMMARY Routine 10/27/2024 12:10 PM EDT POCT GLUCOSE METER UNSOLICITED RESULTS Routine 10/27/2024 11:34 AM EDT POCT GLUCOSE METER UNSOLICITED RESULTS Routine 10/27/2024 7:30 AM EDT PHOSPHORUS, PLASMA Routine 10/27/2024 4: 04 AM EDT MAGNESIUM, PLASMA Routine 10/27/2024 4:0 4 AM EDT COMPREHENSIVE METABOLIC PANEL, PLASMA Routine 10/27/2024 4:04 AM EDT CBC WITH AUTO DIFFERENTIAL Routine 10/27/2024 4:04 AM EDT POCT GLUCOSE METER UNSOLICITED RESULTS Routine 10/27/2024 3:59 AM EDT POCT GLUCOSE METER UNSOLICITED RESULTS Routine 10/26/2024 7:52 PM EDT POCT GLUCOSE METER UNSOLICITED RESULTS Routine 10/26/2024 4:09 PM EDT RAD ONC ARIA SESSION SUMMARY Routine 10/26/2024 1:15 PM EDT INSERT PERIPHERAL IV STAT 10/26/2024 [...] LACTATE, VENOUS Routine 10/26/2024 3:02 AM EDT PHOSPHORUS, PLASMA Routine 10/26/2024 3: 02 AM EDT MAGNESIUM, PLASMA Routine 10/26/2024 3:0 2 AM EDT COMPREHENSIVE METABOLIC PANEL, PLASMA Routine 10/26/2024 3:02 AM EDT CBC WITH AUTO DIFFERENTIAL Routine 10/26/2024 3:02 AM EDT POCT GLUCOSE METER UNSOLICITED RESULTS Routine 10/25/2024 9:25 PM EDT BLOOD CULTURE (AEROBIC/ANAEROBIC SET) STAT 10/25/2024 9:10 PM EDT ECG ADULT STAT 10/25/2024 8:35 PM EDT METHICILLIN RESISTANT STAPHYLOCOCCUS AUREUS (MRSA) BY PCR Routine 10/25/2024 6:32 PM EDT POCT GLUCOSE METER UNSOLICITED RESULTS Routine 10/25/2024 4:34 PM EDT RAD ONC ARIA SESSION SUMMARY Routine 10/25/2024 2:01 PM EDT TROPONIN T, HIGH SENSITIVITY, 2 HOUR, PLASMA Timed 10/25/2024 1:[address] ANGIO PULMONARY EMBOLISM STAT 10/25/2024 11:02 AM EDT SARS COV-2/COVID-19 BY PCR - RAPID STAT 10/25/2024 10:42 AM EDT NASOPHARYNGEAL RESPIRATORY PANEL STAT 10/25/2024 10:42 AM EDT N-TERMINAL PROBNP, PLASMA STAT 10/25/2024 10:28 AM EDT TROPONIN T, HIGH SENSITIVITY, 0 HOUR, PLASMA, REFLEX TO 2 HOUR STAT 10/25/2024 10:28 AM EDT BLOOD GAS PANEL, VENOUS STAT 10/25/2024 10:28 AM EDT BASIC METABOLIC PANEL, PLASMA STAT 10/25/2024 10:28 AM EDT CBC WITH AUTO DIFFERENTIAL STAT 10/25/2024 10:28 AM EDT ECG ADULT STAT 10/25/2024 10:12 AM EDT [facility] ED POCUS PROCDOC Routine 10/25/2024 9:51 AM EDT [facility] ED POCUS PROCDOC Routine 10/25/2024 9:51 AM EDT ECG ADULT Routine 10/25/2024 9:13 AM EDT Atrial flutter with rapid ventricular response (CMS/HCC) RAD ONC ARIA SESSION SUMMARY Routine 10/24/2024 12:06 PM EDT POCT GLUCOSE METER UNSOLICITED RESULTS [...] UNSOLICITED RESULTS Routine 10/16/2024 8:31 AM EDT VANCOMYCIN, TROUGH, PLASMA Timed 10/16/2024 5:49 AM EDT COMPREHENSIVE METABOLIC PANEL, PLASMA Routine 10/16/2024 5:49 AM EDT CBC WITH AUTO DIFFERENTIAL Routine 10/16/2024 5:49 AM EDT POCT GLUCOSE [...] UNSOLICITED RESULTS Routine 10/15/2024 7:22 AM EDT COMPREHENSIVE METABOLIC PANEL, PLASMA Routine 10/15/2024 4:19 AM EDT CBC WITH AUTO DIFFERENTIAL Routine 10/15/2024 4:19 AM EDT ECG ADULT STAT 10/14/2024 8:37 PM EDT POCT GLUCOSE METER UNSOLICITED RESULTS Routine 10/14/2024 8:20 PM EDT POCT GLUCOSE METER UNSOLICITED RESULTS Routine 10/14/2024 5:49 PM EDT VANCOMYCIN, PEAK, PLASMA Timed 10/14/2024 2:33 PM EDT PROTHROMBIN TIME(PT) / INR STAT 10/14/2024 11:06 AM EDT INSERT PERIPHERAL IV Routine 10/14/2024 10:55 AM EDT IR LUMBAR PUNCTURE Routine 10/14/2024 10:29 AM EDT NON-GYNECOLOGIC CYTOLOGY Routine 10/14/2024 10:24 AM EDT HUYEN VIRUS (JCV) QUANTITATIVE REAL-TIME PCR (SO) Routine 10/14/2024 10:24 AM EDT MADINA NELSON DNA BY PCR(CSF) Routine 10/14/2024 10:24 AM EDT [place]ST [place] VIRUS ANTIBODIES, IGG AND IGM BY SONI, CSF (SO) Routine 10/14/2024 10:24 AM EDT LACTATE DEHYDROGENASE TOTAL, BODY FLUID (SO) Routine 10/14/2024 10:24 AM EDT TOTAL PROTEIN, CSF Routine 10/14/2024 10:24 AM EDT GLUCOSE, CSF Routine 10/14/2024 10:24 AM EDT CSF CELL COUNT W/O DIFFERENTIAL Routine 10/14/2024 10:24 AM EDT CSF CELL COUNT W/ MANUAL DIFFERENTIAL Routine 10/14/2024 10:24 AM EDT CSF NOTIFICATION ORDER - PERFORMABLE Routine 10/14/2024 10:24 AM EDT CSF PANEL Routine 10/14/2024 10:24 AM EDT CSF NOTIFICATION ORDER - PERFORMABLE Routine 10/14/2024 10:24 AM EDT CSF PANEL Routine 10/14/2024 10:24 AM EDT MENINGITIS/ENCEPHALITI S PANEL BY PCR Routine 10/14/2024 10:24 AM EDT FUNGAL CULTURE, CEREBROSPINAL FLUID (CSF) AND EMILY INK Routine 10/14/2024 10:24 AM EDT CRYPTOCOCCAL ANTIGEN, CSF Routine 10/14/2024 10:24 AM EDT CEREBROSPINAL FLUID (CSF) CULTURE AND GRAM STAIN Routine 10/14/2024 10:24 AM EDT POCT GLUCOSE METER UNSOLICITED RESULTS Routine 10/14/2024 9:37 AM EDT VANCOMYCIN, TROUGH, PLASMA Timed 10/14/2024 5:46 AM EDT CBC WITH AUTO DIFFERENTIAL Routine 10/14/2024 5:46 AM EDT BASIC METABOLIC PANEL, [...] IV CONTRAST Routine 10/13/2024 6:48 AM EDT OSMOLALITY, URINE Routine 10/13/2024 2:3 3 AM EDT SODIUM, URINE, RANDOM Routine 10/13/2024 2:33 AM EDT URINE MEEK PANEL STAT 10/13/2024 2:33 AM EDT URINALYSIS WITH REFLEX MICROSCOPIC STAT 10/13/2024 2:33 AM EDT URINALYSIS WITH REFLEX MICROSCOPIC AND CULTURE STAT 10/13/2024 2:33 AM EDT STREPTOCOCCUS PNEUMONIAE AND LEGIONELLA URINARY ANTIGEN Routine 10/13/2024 2:33 AM EDT PHOSPHORUS, PLASMA Routine 10/13/2024 1: 26 AM EDT MAGNESIUM, PLASMA Routine 10/13/2024 1:2 6 AM EDT COMPREHENSIVE METABOLIC PANEL, PLASMA Routine 10/13/2024 1:26 AM EDT CBC WITH AUTO DIFFERENTIAL Routine 10/13/2024 1:26 AM EDT METHICILLIN RESISTANT STAPHYLOCOCCUS AUREUS (MRSA) BY PCR Routine 10/13/2024 12:47 AM EDT POCT GLUCOSE METER UNSOLICITED RESULTS Routine 10/12/2024 11:44 PM EDT ANTI XA LEVEL LOW MOLECULAR WEIGHT HEPARIN Routine 10/12/2024 10:37 PM EDT SPUTUM INDUCTION STAT 10/12/2024 10:17 PM EDT POCT GLUCOSE METER UNSOLICITED RESULTS [...] EDT MORPHOLOGY STAT 10/12/2024 4:51 PM EDT MANUAL DIFFERENTIAL STAT 10/12/2024 4 :51 PM EDT OSMOLALITY, SERUM Add-On 10/12/2024 4:5 1 PM EDT LACTATE, VENOUS STAT 10/12/2024 4:51 PM EDT PROCALCITONIN, PLASMA STAT 10/12/2024 4:51 PM EDT C-REACTIVE PROTEIN, PLASMA STAT 10/12/2024 4:51 PM EDT PHOSPHORUS, PLASMA STAT 10/12/2024 4: 51 PM EDT MAGNESIUM, PLASMA STAT 10/12/2024 4:5 1 PM EDT COMPREHENSIVE METABOLIC PANEL, PLASMA STAT 10/12/2024 4:51 PM EDT CBC WITH AUTO DIFFERENTIAL STAT 10/12/2024 4:51 PM EDT BLOOD CULTURE (AEROBIC/ANAEROBIC SET) STAT 10/12/2024 4:51 PM EDT BLOOD CULTURE (AEROBIC/ANAEROBIC SET) STAT 10/12/2024 4:51 PM EDT ECG ADULT STAT 10/12/2024 3:39 PM EDT CARIS VT TUMOR SEEK HYBRID + IHCS AND OTHER TESTS BY TUMOR TYPE Routine 10/05/2024 8:54 AM EDT Extensive stage primary small cell carcinoma of lung TSH REFLEX FT4 Routine 10/04/2024 9:43 AM [...] stage primary small cell carcinoma of lung POCT GLUCOSE METER UNSOLICITED RESULTS Routine 09/09/2024 11:25 AM EDT POCT GLUCOSE METER UNSOLICITED RESULTS Routine 09/09/2024 7:20 AM EDT POCT GLUCOSE METER UNSOLICITED RESULTS Routine 09/09/2024 2:16 AM EDT POCT GLUCOSE METER UNSOLICITED RESULTS Routine 09/08/2024 7:40 PM EDT POCT GLUCOSE METER UNSOLICITED RESULTS Routine 09/08/2024 4:23 PM EDT POCT GLUCOSE METER UNSOLICITED RESULTS Routine 09/08/2024 1:52 PM EDT POCT GLUCOSE METER UNSOLICITED RESULTS Routine 09/08/2024 12:28 PM EDT POCT GLUCOSE METER UNSOLICITED RESULTS Routine 09/08/2024 7:48 AM EDT POCT GLUCOSE METER UNSOLICITED RESULTS Routine 09/08/2024 3:02 AM EDT POCT GLUCOSE METER UNSOLICITED RESULTS Routine 09/07/2024 8:59 PM EDT POCT GLUCOSE METER UNSOLICITED RESULTS Routine 09/07/2024 5:10 PM EDT POCT GLUCOSE METER UNSOLICITED RESULTS Routine 09/07/2024 11:54 AM EDT POCT GLUCOSE METER UNSOLICITED RESULTS Routine 09/07/2024 8:06 AM EDT CBC WITH AUTO DIFFERENTIAL Routine 09/07/2024 3:50 AM EDT BASIC METABOLIC PANEL, PLASMA Routine 09/07/2024 3:50 AM EDT POCT GLUCOSE METER UNSOLICITED RESULTS Routine 09/06/2024 8:44 PM EDT POCT GLUCOSE METER UNSOLICITED RESULTS Routine 09/06/2024 5:33 PM EDT POCT GLUCOSE METER UNSOLICITED RESULTS Routine 09/06/2024 12:30 PM EDT POCT GLUCOSE METER UNSOLICITED RESULTS Routine 09/06/2024 8:17 AM EDT POCT GLUCOSE METER UNSOLICITED RESULTS Routine 09/05/2024 8:29 PM EDT POCT GLUCOSE METER UNSOLICITED RESULTS Routine 09/05/2024 5:59 PM EDT MR HEAD W AND WO IV CONTRAST Routine 09/05/2024 5:20 PM EDT POCT GLUCOSE METER UNSOLICITED RESULTS Routine 09/05/2024 12:43 PM EDT POCT GLUCOSE METER UNSOLICITED RESULTS Routine 09/05/2024 9:07 AM EDT SURGICAL PATHOLOGY EXAM Routine 09/05/2024 8:29 AM EDT Brain mass PB ANESTHESIA PLACEHOLDER Routine 09/05/2024 7:43 AM EDT OH AN ELECTIVE ENDOTRACHEAL AIRWAY Routine 09/05/2024 7:43 AM EDT POCT GLUCOSE METER UNSOLICITED RESULTS Routine 09/05/2024 7:22 AM EDT OH EXCIS SUPRATENT BRAIN TUMOR 09/05/2024 7:14 AM EDT Brain mass TYPE AND SCREEN STAT 09/05/2024 7:02 AM EDT ANTI XA LEVEL UNFRACTIONATED HEPARIN Pending Discharge 09/05/2024 7:02 AM EDT POCT GLUCOSE METER UNSOLICITED RESULTS Routine 09/05/2024 6:21 AM EDT PROTHROMBIN TIME(PT) / INR Pending Discharge 09/05/2024 3:15 AM EDT PHOSPHORUS, PLASMA Pending Discharge 09/05/2024 3:15 AM EDT MAGNESIUM, PLASMA Pending Discharge 09/05/2024 3:15 AM EDT BASIC METABOLIC PANEL, PLASMA Pending Discharge 09/05/2024 3:15 AM EDT CBC W/O DIFFERENTIAL Pending Discharge 09/05/2024 3:15 AM EDT POCT GLUCOSE METER UNSOLICITED RESULTS Routine 09/04/2024 8:40 PM EDT POCT GLUCOSE METER UNSOLICITED RESULTS Routine 09/04/2024 5:48 PM EDT MR HEAD W IV CONTRAST Routine 09/04/2024 4:21 PM EDT POCT GLUCOSE METER UNSOLICITED RESULTS Routine 09/04/2024 11:24 AM EDT POCT GLUCOSE METER UNSOLICITED RESULTS Routine 09/04/2024 7:53 AM EDT POCT GLUCOSE METER UNSOLICITED RESULTS Routine 09/04/2024 3:33 AM EDT POCT GLUCOSE METER UNSOLICITED RESULTS Routine 09/03/2024 9:16 PM EDT POCT GLUCOSE METER UNSOLICITED RESULTS Routine 09/03/2024 5:18 PM EDT POCT GLUCOSE METER UNSOLICITED RESULTS Routine 09/03/2024 12:19 PM EDT POCT GLUCOSE METER UNSOLICITED RESULTS Routine 09/03/2024 8:03 AM EDT POCT GLUCOSE METER UNSOLICITED RESULTS Routine 09/03/2024 2:50 AM EDT POCT GLUCOSE METER UNSOLICITED RESULTS Routine 09/02/2024 8:36 PM EDT POCT GLUCOSE METER UNSOLICITED RESULTS Routine 09/02/2024 3:58 PM EDT POCT GLUCOSE METER UNSOLICITED RESULTS Routine 09/02/2024 12:18 PM EDT POCT GLUCOSE METER UNSOLICITED RESULTS Routine 09/02/2024 8:10 AM EDT POCT GLUCOSE METER UNSOLICITED RESULTS Routine 09/02/2024 6:35 AM EDT TSH Routine 09/02/2024 3:25 AM EDT LIPID PROFILE, PLASMA Routine 09/02/2024 3:25 AM EDT HEMOGLOBIN A1C Routine 09/02/2024 3:25 AM EDT RENAL FUNCTION PANEL, PLASMA Routine 09/02/2024 3:25 AM EDT MAGNESIUM, PLASMA Routine 09/02/2024 3:2 5 AM EDT CBC WITH AUTO DIFFERENTIAL Routine 09/02/2024 3:25 AM EDT POCT GLUCOSE METER UNSOLICITED RESULTS Routine 09/02/2024 2:57 AM EDT POCT GLUCOSE METER UNSOLICITED RESULTS Routine 09/01/2024 9:00 PM EDT POCT GLUCOSE METER UNSOLICITED RESULTS Routine 09/01/2024 6:18 PM EDT MR VENOGRAM HEAD W IV CONTRAST Routine 09/01/2024 5:48 PM EDT MR HEAD W AND WO IV CONTRAST Routine 09/01/2024 5:48 PM EDT POCT GLUCOSE METER UNSOLICITED RESULTS Routine 09/01/2024 1:23 PM EDT POCT GLUCOSE METER UNSOLICITED RESULTS Routine 09/01/2024 6:[address] CHEST W IV CONTRAST Timed 2:[address] ABDOMEN PELVIS W IV CONTRAST Timed 09/01/2024 2:[address] HEAD WO IV CONTRAST Timed 2:05 AM EDT ANTI XA LEVEL LOW MOLECULAR WEIGHT HEPARIN STAT 08/31/2024 8:[address] VENOGRAM HEAD STAT 08/31/2024 8:37 PM EDT URINE MEEK PANEL STAT 08/31/2024 7:57 PM EDT URINALYSIS WITH REFLEX MICROSCOPIC STAT 08/31/2024 7:57 PM EDT URINALYSIS WITH REFLEX MICROSCOPIC AND CULTURE STAT 08/31/2024 7:[address] LUMBAR SPINE WO IV CONTRAST STAT 08/31/2024 6:[address] CERVICAL SPINE WO IV CONTRAST STAT 08/31/2024 6:[address] HEAD WO IV CONTRAST STAT 6:57 PM EDT N-TERMINAL PROBNP, PLASMA STAT Add-on 08/31/2024 5:54 PM EDT ED HIV 1/2 ANTIBODY/ANTIGEN SCREEN WITH REFLEX TO HIV I/II DIFFERENTIATION STAT 08/31/2024 5:54 PM EDT ED PROTOCOL HIV 1/2 ANTIBODY/ANTIGEN SCREEN W/REFLEX TO HIV 1/2 ANTIBODY DIFFERENTIATION STAT 08/31/2024 5:54 PM EDT HEPATITIS C ANTIBODY - ED W/REFLEX TO HCV QUANT PCR STAT 08/31/2024 5:54 PM EDT PROTHROMBIN TIME(PT) / INR STAT 08/31/2024 5:54 PM EDT TROPONIN T, HIGH SENSITIVITY, 0 HOUR, PLASMA, REFLEX TO 2 HOUR STAT 08/31/2024 5:54 PM EDT CBC WITH AUTO DIFFERENTIAL STAT 08/31/2024 5:54 PM EDT LIPASE, PLASMA STAT 08/31/2024 5:54 PM EDT COMPREHENSIVE METABOLIC PANEL, PLASMA STAT 08/31/2024 5:54 PM EDT ECG ADULT STAT 08/31/2024 5:46 PM EDT ECG ADULT Routine 08/31/2024 3:08 PM EDT Atrial flutter with rapid ventricular response (CMS/HCC) from Last 3 Months Results * (ABNORMAL) CBC and differential (11/08/2024 11:36 AM EDT) Only the most recent of16 resultswithin the time period is included. WBC Count 10.97(H) 3.70 - 10.30 10*3/uL LAB HEMATOLOGY METHOD 11/08/2024 11:52 AM EDT [facility] RBC Count 2.87(L) 3.90 - 5.20 10*6/uL LAB HEMATOLOGY METHOD 11/08/2024 11:52 AM EDT [facility] HGB 8.9(L) 11.2 - 15.7 g/dL LAB HEMATOLOGY METHOD 11/08/2024 11:52 AM EDT [facility] HCT 30.2(L) 34.0 - 45.0 % LAB HEMATOLOGY METHOD 11/08/2024 11:52 AM EDT [facility] Platelet Count 275 155 - 369 10*3/uL LAB HEMATOLOGY METHOD 11/08/2024 11:52 AM EDT [facility] MCV 105(H) 79 - 98 fL LAB HEMATOLOGY METHOD 11/08/2024 11:52 AM EDT [facility] MCH 31.0 26.0 - 32.0 pg LAB HEMATOLOGY METHOD 11/08/2024 11:52 AM EDT [facility] MCHC 29.5(L) 30.7 - 35.5 g/dL LAB HEMATOLOGY METHOD 11/08/2024 11:52 AM EDT [facility] RDW 19.9(H) 11.5 - 14.5 % LAB HEMATOLOGY METHOD 11/08/2024 11:52 AM EDT [facility] MPV 9.7 8.8 - 12.5 fL LAB HEMATOLOGY METHOD 11/08/2024 11:52 AM EDT [facility] nRBC 1.1(H) <=0.0 per 100 WBCs LAB HEMATOLOGY METHOD 11/08/2024 11:52 AM EDT [facility] Differential Type Automated LAB HEMATOLOGY METHOD 11/08/2024 11:52 AM EDT [facility] Neutrophils % 78 % LAB HEMATOLOGY METHOD 11/08/2024 11:52 AM EDT [facility] Lymphocytes % 13 % LAB HEMATOLOGY METHOD 11/08/2024 11:52 AM EDT [facility] Monocytes % 6 % LAB HEMATOLOGY METHOD 11/08/2024 11:52 AM EDT [facility] Eosinophils % 1 % LAB HEMATOLOGY METHOD 11/08/2024 11:52 AM EDT [facility] Basophils % 1 % LAB HEMATOLOGY METHOD 11/08/2024 11:52 AM EDT [facility] Immature Granulocytes % 1 % LAB HEMATOLOGY METHOD 11/08/2024 11:52 AM EDT [facility] Neutrophils Absolute 8.68(H) 1.60 - 6.10 10*3/uL LAB HEMATOLOGY METHOD 11/08/2024 11:52 AM EDT [facility] Lymphocytes Absolute 1.38 1.20 - 3.90 10*3/uL LAB HEMATOLOGY METHOD 11/08/2024 11:52 AM EDT [facility] Monocytes Absolute 0.68 0.30 - 0.90 10*3/uL LAB HEMATOLOGY METHOD 11/08/2024 11:52 AM EDT [facility] Eosinophils Absolute 0.07 0.00 - 0.50 10*3/uL LAB HEMATOLOGY METHOD 11/08/2024 11:52 AM EDT [facility] Basophils Absolute 0.06 0.00 - 0.10 10*3/uL LAB HEMATOLOGY METHOD 11/08/2024 11:52 AM EDT [facility] Immature Granulocytes Absolute 0.10(H) 0.00 - 0.06 10*3/uL LAB HEMATOLOGY METHOD 11/08/2024 11:52 AM EDT [facility] Blood Venous blood specimen / Unknown Venipuncture / Unknown 11/08/2024 11:36 AM EDT 11/08/2024 11:45 AM EDT Narrative [facility] - 11/08/2024 11:52 AM EDT Therapeutic decision making should be based on absolute values, rather than percentages. us Satnam Dunne MD LAB BLOOD ORDERABLES Fi nal Result [facility] [address] [place] [address] * (ABNORMAL) Magnesium (11/08/2024 11:36 AM EDT) Only the most recent of12 resultswithin the time period is included. Magnesium, Plasma 1.6(L) 1.9 - 2.4 mg/dL 11/08/2024 12:14 PM EDT [facility] Blood Venous blood specimen / Unknown Venipuncture / Unknown 11/08/2024 11:36 AM EDT 11/08/2024 11:45 AM EDT us Satnam Dunne MD LAB BLOOD ORDERABLES Fi nal Result [facility] [address] [place] [address] * (ABNORMAL) Comprehensive metabolic panel (11/08/2024 11:36 AM EDT) Only the most recent of9 resultswithin the time period is included. Glucose, Plasma 140(H) 74 - 99 mg/dL 11/08/2024 12:14 PM EDT [facility] BUN, Plasma 11 8 - 23 mg/dL 11/08/2024 12:14 PM EDT [facility] Creatinine, Plasma 0.77 0.60 - 1.10 mg/dL 11/08/2024 12:14 PM EDT [facility] BUN/Creatinine Ratio 14 11/08/2024 12:14 PM EDT [facility] Sodium, Plasma 144 136 - 145 mmol/L 11/08/2024 12:14 PM EDT [facility] Potassium, Plasma 4.1 3.6 - 4.9 mmol/L 11/08/2024 12:14 PM EDT [facility] Chloride, Plasma 105 97 - 107 mmol/L 11/08/2024 12:14 PM EDT [facility] CO2, Plasma 23 22 - 29 mmol/L 11/08/2024 12:14 PM EDT [facility] Anion Gap 16 6 - 16 mmol/L 11/08/2024 12:14 PM EDT [facility] Total Calcium, Plasma 9.3 8.9 - 10.2 mg/dL 11/08/2024 12:14 PM EDT [facility] Total Protein 7.1 6.3 - 7.9 g/dL 11/08/2024 12:14 PM EDT [facility] Albumin, Plasma 3.7 3.5 - 5.2 g/dL 11/08/2024 12:14 PM EDT [facility] AST, Plasma 17 10 - 35 U/L 11/08/2024 12:14 PM EDT [facility] ALT, Plasma 26 10 - 35 U/L 11/08/2024 12:14 PM EDT [facility] Alkaline Phosphatase, Plasma 94 46 - 142 U/L 11/08/2024 12:14 PM EDT [facility] Total Bilirubin, Plasma 0.4 0.2 - 1.1 mg/dL 11/08/2024 12:14 PM EDT [facility] eGFRcr 86.8 mL/min/1.7 3m*2 11/08/2024 12:14 PM EDT [facility] Comment:Reported eGFRcr in m L/min/1.73m2 is based the CKD-EPI 2020 equation that does not use a race coefficient. Blood Venous blood specimen / Unknown Venipuncture / Unknown 11/08/2024 11:36 AM EDT 11/08/2024 11:45 AM EDT Satnam Dunne MD LAB BLOOD ORDERABLES Fi nal Result [facility] [address] [place] [address] * Rad Onc Aria Course Summary (11/07/2024 [...] GY ORDERABLES Final Result [facility] * Rad Onc Aria Session Summary (11/07/2024 [...] GY ORDERABLES Final Result [facility] * Rad Onc Aria Session Summary (11/04/2024 [...] 2 AM EDT Physician Radiation Oncology RADIATION ONCJOSELITO GY ORDERABLES Final Result [facility] * Rad Onc Aria Session Summary (11/02/2024 [...] 0 AM EDT Physician Radiation Oncology RADIATION ONCJOSELITO GY ORDERABLES Final Result [facility] * Rad Onc Aria Session Summary (11/01/2024 [...] Oncology RADIATION ONCOLO GY ORDERABLES Final Result [facility] RADIATION ONCOLOGY * (ABNORMAL) POCT glucose meter (10/31/2024 4:36 PM EDT) Only the most recent of99 resultswithin the time period is included. POCT Glucose 110(H) 74 - 99 mg/dL 10/31/2024 4:38 PM EDT [facility] Comment:Accuracy of [...] 10/31/2024 4:38 PM EDT [facility] Senior Business Process Analyst ID Maryanne Raines 10/31/2024 4:38 PM EDT [facility] Device ID [id number] 10/31/2024 4:38 PM EDT [facility] Specimen Type POC Capillary 10/31/2024 4:38 PM EDT [facility] Blood Capillary blood specimen / Unknown 10/31/2024 4:36 PM EDT 10/31/2024 4:38 PM EDT Robert Amin MD LAB POINT OF CARE TE ST DOCKED DEVICE UNSOLICITED RESULTS Final Result [facility] [address] [place] [address] * Wilbur auris Surveillance by PCR (10/31/2024 10:43 AM EDT) Wilbur auris PCR Result Not Detected Not Detected 11/01/2024 1:30 PM EDT [facility] Swab (Axilla and Groin) Non-blood Collection / Unknown 10/31/2024 10:43 AM EDT 10/31/2024 11:27 AM EDT Narrative [facility] - 11/01/2024 1:30 PM EDT This PCR assay was developed and its performance characteristics determined by [facility] as appropriate for clinical purposes. This assay has not been cleared or approved by the FDA, but is performed in a CLIA regulated laboratory that is qualified to perform high-complexity testing. Robert Amin MD LAB MICROBIOLOGY - GENERAL ORD ERABLES Final Result [facility] [address] [place] [address] * Rad Onc Aria Session Summary (10/31/2024 [...] GY ORDERABLES Final Result [facility] * (ABNORMAL) Morphology (10/31/2024 12:21 AM EDT) Only the most recent of4 resultswithin the time period is included. RBC Fragments/Schist ocytes Slight(A) (none) LAB HEMATOLOGY METHOD 10/31/2024 2:12 AM EDT [facility] Polychromasia Slight LAB HEMATOLOGY METHOD 10/31/2024 2:12 AM EDT [facility] RBC Morphology Slide Reviewed LAB HEMATOLOGY METHOD 10/31/2024 2:12 AM EDT [facility] Teardrop Cells Present LAB HEMATOLOGY METHOD 10/31/2024 2:12 AM EDT [facility] Platelet Estimate Platelet smear estimate consistent with automated count LAB HEMATOLOGY METHOD 10/31/2024 2:12 AM EDT [facility] Blood Venous blood specimen / Unknown Venipuncture / Unknown 10/31/2024 12:21 AM EDT 10/31/2024 12:55 AM EDT us Robert Amin MD LAB BLOOD ORDERABLES Final Res ult [facility] [address] [place] [address] * (ABNORMAL) Manual Differential (10/31/2024 12:21 AM EDT) Only the most recent of4 resultswithin the time period is included. Blasts % 0 % LAB HEMATOLOGY METHOD 10/31/2024 2:12 AM EDT [facility] Promyelocytes % 0 % LAB HEMATOLOGY METHOD 10/31/2024 2:12 AM EDT [facility] Myelocytes % 3 % LAB HEMATOLOGY METHOD 10/31/2024 2:12 AM EDT [facility] Metamyelocytes % 3 % LAB HEMATOLOGY METHOD 10/31/2024 2:12 AM EDT [facility] Neutrophils % 84 % LAB HEMATOLOGY METHOD 10/31/2024 2:12 AM EDT [facility] Lymphocytes % 6 % LAB HEMATOLOGY METHOD 10/31/2024 2:12 AM EDT [facility] Reactive Lymphocytes % 0 % LAB HEMATOLOGY METHOD 10/31/2024 2:12 AM EDT [facility] Monocytes % 3 % LAB HEMATOLOGY METHOD 10/31/2024 2:12 AM EDT [facility] Eosinophils % 1 % LAB HEMATOLOGY METHOD 10/31/2024 2:12 AM EDT [facility] Basophils % 0 % LAB HEMATOLOGY METHOD 10/31/2024 2:12 AM EDT [facility] Blasts Absolute 0.00 10*3/UL LAB HEMATOLOGY METHOD 10/31/2024 2:12 AM EDT [facility] Promyelocytes Absolute 0.00 10*3/uL LAB HEMATOLOGY METHOD 10/31/2024 2:12 AM EDT [facility] Myelocytes Absolute 0.20 10*3/uL LAB HEMATOLOGY METHOD 10/31/2024 2:12 AM EDT [facility] Metamyelocytes Absolute 0.20 10*3/uL LAB HEMATOLOGY METHOD 10/31/2024 2:12 AM EDT [facility] Neutrophils Absolute 5.62 1.60 - 6.10 10*3/uL LAB HEMATOLOGY METHOD 10/31/2024 2:12 AM EDT [facility] Lymphocytes Absolute 0.40(L) 1.20 - 3.90 10*3/uL LAB HEMATOLOGY METHOD 10/31/2024 2:12 AM EDT [facility] Reactive Lymphocytes Absolute 0.00 10*3/uL LAB HEMATOLOGY METHOD 10/31/2024 2:12 AM EDT [facility] Monocytes Absolute 0.20(L) 0.30 - 0.90 10*3/uL LAB HEMATOLOGY METHOD 10/31/2024 2:12 AM EDT [facility] Eosinophils Absolute 0.07 0.00 - 0.50 10*3/uL LAB HEMATOLOGY METHOD 10/31/2024 2:12 AM EDT [facility] Basophils Absolute 0.00 0.00 - 0.10 10*3/uL LAB HEMATOLOGY METHOD 10/31/2024 2:12 AM EDT [facility] Blood Venous blood specimen / Unknown Venipuncture / Unknown 10/31/2024 12:21 AM EDT 10/31/2024 12:55 AM EDT us Robert Amin MD LAB BLOOD ORDERABLES Final Res ult [facility] [address] [place] [address] * (ABNORMAL) Basic Metabolic Panel, Plasma (10/31/2024 12:21 AM EDT) Only the most recent of8 resultswithin the time period is included. Glucose, Plasma 337(H) 74 - 99 mg/dL 10/31/2024 1:24 AM EDT [facility] BUN, Plasma 15 8 - 23 mg/dL 10/31/2024 1:24 AM EDT [facility] Creatinine, Plasma 0.63 0.60 - 1.10 mg/dL 10/31/2024 1:24 AM EDT [facility] BUN/Creatinine Ratio 24 10/31/2024 1:24 AM EDT [facility] Sodium, Plasma 139 136 - 145 mmol/L 10/31/2024 1:24 AM EDT [facility] Potassium, Plasma 4.2 3.6 - 4.9 mmol/L 10/31/2024 1:24 AM EDT [facility] Chloride, Plasma 102 97 - 107 mmol/L 10/31/2024 1:24 AM EDT [facility] CO2, Plasma 25 22 - 29 mmol/L 10/31/2024 1:24 AM EDT [facility] Anion Gap 12 6 - 16 mmol/L 10/31/2024 1:24 AM EDT [facility] Total Calcium, Plasma 8.8(L) 8.9 - 10.2 mg/dL 10/31/2024 1:24 AM EDT [facility] eGFRcr 99.8 mL/min/1.7 3m*2 10/31/2024 1:24 AM EDT [facility] Comment:Reported eGFRcr in m L/min/1.73m2 is based the CKD-EPI 2020 equation that does not use a race coefficient. Blood Venous blood specimen / Unknown Venipuncture / Unknown 10/31/2024 12:21 AM EDT 10/31/2024 12:55 AM EDT us Robert Amin MD LAB BLOOD ORDERABLES Final Res ult [facility] [address] [place] [address] * Rad Onc Aria Session Summary (10/28/2024 [...] 10/28/2024 8:57 AM EDT Physician Radiation Oncology MD RADIATION ONCOLO GY ORDERABLES Final Result [facility] * Rad Onc Aria Session Summary (10/27/2024 [...] GY ORDERABLES Final Result [facility] * (ABNORMAL) Phosphorus (10/27/2024 4:04 AM EDT) Only the most recent of5 resultswithin the time period is included. Phosphorus, Plasma 2.4(L) 2.5 - 4.5 mg/dL 10/27/2024 5:08 AM EDT [facility] Blood Venous blood specimen / Unknown Venipuncture / Unknown 10/27/2024 4:04 AM EDT 10/27/2024 4:38 AM EDT Robert Amin MD LAB BLOOD ORDERABLES Final Res ult [facility] [address] [place] [address] * Rad Onc Aria Session Summary (10/26/2024 1:15 PM EDT) Course ID [id number] [facility] Course Intent Palliative [facility] Course Start Date 09/26/2024 1:36 PM [facility] Course First Treatment Date 10/24/2024 12:01 PM [facility] Course Last Treatment Date 10/26/2024 1:12 PM [facility] Course Elapsed Days 2 [facility] Reference Point ID Brain WBRT [facility] Reference Point Dosage Given to Date 9 Gy [facility] Reference Point Session Dosage Given 3 Gy [facility] Plan ID [id number] [facility] Plan Name Brain WBRT_PTV [facility] Plan Fractions Treated to Date 3 [facility] Plan Total Fractions Prescribed 10 [facility] Plan Prescribed Dose Per Fraction 3 Gy [facility] Plan Total Prescribed Dose 3,000 CGy [facility] Plan Primary Reference Point Brain WBRT [facility] 10/26/2024 1:15 PM EDT Physician Radiation Oncology RADIATION ONCOLO GY ORDERABLES Final Result [facility]COL[facility] * PERIPHERAL IV (SMARTFORM LINK) (10/26/2024 12:46 PM EDT) Only the most recent of3 resultswithin the time period is included. Narrative Dayana River RN - 10/26/2024 12:46 [...] Transparent semipermeable dressing Education provided to: Patient Robert Amin MD IV THERAPY ORDERABLES Final Re sult * Streptococcus pneumoniae and Legionella Urinary Antigen (10/26/2024 5:37 AM EDT) Only the most recent of2 resultswithin the time period is included. Legionella pneumophila serogroup 1 Antigen Result (Urine) Negative Negative 10/26/2024 7:43 AM EDT [facility] Streptococcus pneumoniae Antigen Result (Urine) Negative Negative 10/26/2024 7:43 AM EDT [facility] Urine Urine specimen obtained by clean catch procedure / Unknown Non-blood Collection / Unknown 10/26/2024 5:37 AM EDT 10/26/2024 6:19 AM EDT Robert Amin MD LAB MICROBIOLOGY - GENERAL ORD ERABLES Final Result [facility] [address] [place] [place] [address] * (ABNORMAL) Respiratory Culture and Gram Stain (10/26/2024 5:37 AM EDT) Culture Light Growth 10/31/2024 12:21 PM EDT [facility] Culture Pseudomonas aeruginosa MDR, CONTEMPORARY OR MODERN DANCER(AA) DONAVAN 10/31/2024 12:21 PM EDT [facility] Comment: This isolate has been identified using the FDA Approved MALDI VetCompareyper CA System Tobramycin no longer reported. If [...] than 25 WBC/LPF(A) 10/31/2024 12:21 PM EDT [facility] Gram Stain Result Greater than 10 Epithelial cells/LPF(A) 10/31/2024 12:21 PM EDT [facility] Gram Stain Result Few Gram negative rods(A) 10/31/2024 12:21 PM EDT [facility] Gram Stain Result Rare Budding yeast(A) 10/31/2024 12:21 PM EDT [facility] Gram Stain Result Few Gram positive rods(A) 10/31/2024 12:21 PM EDT [facility] Gram Stain Result Rare Gram positive cocci in clusters(A) 10/31/2024 12:21 PM EDT [facility] Sputum Coughed sputum specimen / Unknown Non-blood Collection / Unknown 10/26/2024 5:37 AM EDT 10/26/2024 6:19 AM EDT Narrative Organism Antibiotic Method Susceptibility Pseudomonas aeruginosa MDR, CONTEMPORARY OR MODERN DANCER Aztreonam DONAVAN 8 ug/ml: Susceptible Pseudomonas aeruginosa MDR, CONTEMPORARY OR MODERN DANCER Cefepime DONAVAN 16 ug/ml: Resistant Pseudomonas aeruginosa MDR, CONTEMPORARY OR MODERN DANCER Levofloxacin DONAVAN >4 ug/ml: Resistant Pseudomonas aeruginosa MDR, CONTEMPORARY OR MODERN DANCER Piperacillin/Tazobactam DONAVAN 64/4 ug/ml: Intermediate Pseudomonas aeruginosa MDR, CONTEMPORARY OR MODERN DANCER Meropenem ETEST 32.0 ug/ml: Resistant Comment:The previously repor samaria component Tobramycin is no longer being reported. us Robert Amin MD LAB MICROBIOLOGY - GENERAL ORD ERABLES Edited Result - Final Performing Organization Address [facility]/ZIP Co de Phone Number [facility] [address] [place] [address] * Blood Culture (Aerobic/Anaerobet Set) (10/26/2024 3:03 AM EDT) Only the most recent of4 resultswithin the time period is included. Pathologist [facility] Culture No growth at day 5 10/31/2024 5:01 AM EDT [facility] Blood Structure of left hand / Unknown Venipuncture / Unknown 10/26/2024 3:03 AM EDT 10/26/2024 4:58 AM EDT West Bobby MD LAB MICROBIOLOGY - GENE RAL ORDERABLES Final Result Performing Organization Address [facility] Co de Phone Number [facility] [address] [place] [address] * Lactate, venous (10/26/2024 3:02 AM EDT) Only the most recent of2 resultswithin the time period is included. [facility] Lactate, Venous, Whole Blood 0.8 0.5 - 2.2 mmol/L LAB HEMATOLOGY METHOD 10/26/2024 3:15 AM EDT [facility] Blood Venous blood specimen / Unknown Venipuncture / Unknown 10/26/2024 3:02 AM EDT 10/26/2024 3:13 AM EDT Robert Amin MD LAB BLOOD ORDERABLES Final Res ult Performing Organization Address City/[facility]/ZIP Co de Phone Number [facility] [address] [place] [address] * ECG Adult (10/25/2024 8:35 PM EDT) Only the most recent of9 resultswithin the time period is included. EKG DIAGNOSIS CLASS Borderline Normal MUSE ECG Ventricular Rate 97 BPM MUSE ECG Atrial Rate 97 BPM MUSE ECG OH Interval 128 ms MUSE ECG QRSD Interval 88 ms MUSE ECG QT Interval 334 ms MUSE ECG QTC Interval 424 ms MUSE ECG P Doyle 65 degrees MUSE ECG R Doyle 25 degrees MUSE ECG T Wave Doyle 57 degrees MUSE ECG Diagnosis Normal sinus rhythm MUSE ECG Diagnosis RSR' pattern in V1 & V2 MUSE ECG Diagnosis Otherwise normal ECG MUSE ECG Diagnosis MUSE ECG Diagnosis Confirmed by Jeff Jackson ([id number]) on 10/25/2024 8:38:22 PM MUSE ECG 10/25/2024 8:35 PM EDT 10/25/2024 8:38 PM EDT us Robert Amin MD ECG ORDERABLES Final Result MUSE ECG * Methicillin Resistant Staphylococcus aureus (MRSA) by PCR (10/25/2024 6:32 PM EDT) Only the most recent of2 resultswithin the time period is included. Pathologist [facility] Methicillin Resistant Staphylococcus aureus (MRSA) by PCR Not Detected Not Detected 10/25/2024 8:41 PM EDT [facility] Swab Both anterior nares / Unknown Non-blood Collection / Unknown 10/25/2024 6:32 PM EDT 10/25/2024 6:58 PM EDT Narrative [facility] - 10/25/2024 8:41 PM EDT This test is FDA approved for use with nares swab specimens using the eSwabs. This test is used for clinical purposes. It should not be regarded as investigational or for research. This laboratory is certified under the Clinical Laboratory improvement Amendments of 1988 (CLIA-88 as qualified to perform high complexity clinical laboratory testing. us Robert Amin MD LAB MICROBIOLOGY - GENERAL ORD ERABLES Final Result [facility] [address] [place] [address] * Rad Onc Aria Session Summary (10/25/2024 2:01 PM EDT) Course ID C1 [facility] Course Intent Palliative [facility] Course Start Date 09/26/2024 1:36 PM [facility] Course First Treatment Date 10/24/2024 12:01 PM [facility] Course Last Treatment Date 10/25/2024 1:58 PM [facility] Course Elapsed Days 1 [facility] Reference Point ID Brain WBRT [facility] Reference Point Dosage Given to Date 6 Gy [facility] Reference Point Session Dosage Given 3 Gy [facility] Plan ID [id number] [facility] Plan Name Brain WBRT_PTV [facility] Plan Fractions Treated to Date 2 [facility] Plan Total Fractions Prescribed 10 [facility] Plan Prescribed Dose Per Fraction 3 Gy [facility] Plan Total Prescribed Dose 3,000 CGy [facility] Plan Primary Reference Point Brain WBRT [facility] 10/25/2024 2:01 PM EDT Physician Radiation Oncology RADIATION ONCOLO GY ORDERABLES Final Result [facility] * (ABNORMAL) Troponin T, High Sensitivity, 2 Hour, Plasma (10/25/2024 1:16 PM EDT) Troponin T, High Sensitivity, 2 Hour 19(H) <14 ng/L 10/25/2024 1:40 PM EDT [facility] Troponin Delta 2 <10 ng/L 10/25/2024 1:40 PM EDT [facility] Troponin Delta Interpretation Not Significant 10/25/2024 1:40 PM EDT [facility] Comment:Not Significant. No acute change in troponin observed between the baseline and 2 hour samples. Blood Venous blood specimen / Unknown Venipuncture / Unknown 10/25/2024 1:16 PM EDT 10/25/2024 1:20 PM EDT West Bobby MD LAB BLOOD ORDERABLES Fi nal Result [facility] [address] [place] [address] * CT Angio Pulmonary Embolism (10/25/2024 11:02 [...] Ashia Murray MD on 10/25/2024 12:50 PM West Bobby MD IM CT PROCEDURES Final Result * SARS CoV-2/COVID-19 by PCR - Rapid (10/25/2024 10:42 AM EDT) SARS CoV-2/COVID-1 9 RNA PCR Result Not Detected Not Detected 10/25/2024 12:13 PM EDT [facility] Swab Nasopharyngeal structure / Unknown Non-blood Collection / Unknown 10/25/2024 10:42 AM EDT 10/25/2024 11:16 AM EDT Narrative [facility] - 10/25/2024 12:13 PM EDT [...] clinical signs and symptoms consistent with COVID-19. West Bobby MD LAB MICROBIOLOGY - [facility] ORDERABLES Final Result [facility] [address] [place] [address] * Nasopharyngeal Respiratory Panel (10/25/2024 10:42 AM EDT) Only the most recent of2 resultswithin the time period is included. Nasopharyngeal Respiratory PCR Interpretation Not Detected for all analytes Not Detected for all analytes 10/25/2024 3:07 PM EDT [facility] Swab Nasopharyngeal structure / Unknown Non-blood Collection / Unknown 10/25/2024 10:42 AM EDT 10/25/2024 11:16 AM EDT Narrative [facility] - 10/25/2024 3:07 PM EDT [...] Respiratory PCR Panel is performed using the [employer] ePlex instrument. This test is FDA approved for use with Nasopharyngeal swabs only. This test is used for clinical purposes. It should not be regarded as investigational or for research. [facility] Clinical Microbiology Laboratory is certified under the Clinical Laboratory Improvement Amendments of 1988 (CLIA-88) as qualified to perform high complexity clinical laboratory testing. West Bobby MD LAB MICROBIOLOGY - GENE RAL ORDERABLES Final Result Performing Organization Address City/[facility]/ZIP Co de Phone Number [facility] [address] [place] [address] * (ABNORMAL) Troponin now and 120 min (10/25/2024 10:28 AM EDT) Only the most recent of2 resultswithin the time period is included. Troponin T, High Sensitivity, 0 Hour 21(H) <14 ng/L 10/25/2024 10:59 AM EDT [facility] Blood Venous blood specimen / Unknown Venipuncture / Unknown 10/25/2024 10:28 AM EDT 10/25/2024 10:35 AM EDT West Bobby MD LAB BLOOD ORDERABLES Fi nal Result Performing Organization Address [facility] Co de Phone Number [facility] [address] [place] [address] * (ABNORMAL) BNP (10/25/2024 10:28 AM EDT) Only the most recent of2 resultswithin the time period is included. N-Terminal, PROBNP, Plasma 1,887(H) 0 - 899 pg/mL 10/25/2024 10:59 AM EDT [facility] Blood Venous blood specimen / Unknown Venipuncture / Unknown 10/25/2024 10:28 AM EDT 10/25/2024 10:35 AM EDT West Bobby MD LAB BLOOD ORDERABLES Fi nal Result Performing Organization Address City/[facility]/ZIP Co de Phone Number [facility] [address] [place] [address] * (ABNORMAL) Blood gas panel, venous (10/25/2024 10:28 AM EDT) pH, Venous 7.39 7.32 - 7.43 LAB HEMATOLOGY METHOD 10/25/2024 10:32 AM EDT [facility] pCO2, Venous 50 37 - 52 mmHg LAB HEMATOLOGY METHOD 10/25/2024 10:32 AM EDT [facility] pO2, Venous 47(H) 25 - 40 mmHg LAB HEMATOLOGY METHOD 10/25/2024 10:32 AM EDT [facility] SO2, Measured, Venous 79 65 - 80 % LAB HEMATOLOGY METHOD 10/25/2024 10:32 AM EDT [facility] Base Excess, Venous 4.4(H) -2.0 - 3.0 mmol/L LAB HEMATOLOGY METHOD 10/25/2024 10:32 AM EDT [facility] Bicarbonate, Calculated, Venous 30(H) 22 - 26 mmol/L LAB HEMATOLOGY METHOD 10/25/2024 10:32 AM EDT [facility] Hematocrit, Whole Blood 23.3(L) 34.0 - 45.0 % LAB HEMATOLOGY METHOD 10/25/2024 10:32 AM EDT [facility] Sodium, Whole Blood 142 136 - 145 mmol/L LAB HEMATOLOGY METHOD 10/25/2024 10:32 AM EDT [facility] Potassium, Whole Blood 3.9 3.6 - 4.9 mmol/L LAB HEMATOLOGY METHOD 10/25/2024 10:32 AM EDT [facility] Chloride, Whole Blood 101 97 - 107 mmol/L LAB HEMATOLOGY METHOD 10/25/2024 10:32 AM EDT [facility] Glucose, Whole Blood 200(H) 74 - 99 mg/dL LAB HEMATOLOGY METHOD 10/25/2024 10:32 AM EDT [facility] Lactate, Venous, Whole Blood 2.6(H) 0.5 - 2.2 mmol/L LAB HEMATOLOGY METHOD 10/25/2024 10:32 AM EDT [facility] Ionized Calcium, Whole Blood 4.4(L) 4.6 - 5.1 mg/dL LAB HEMATOLOGY METHOD 10/25/2024 10:32 AM EDT [facility] Blood Venous blood specimen / Unknown Venipuncture / Unknown 10/25/2024 10:28 AM EDT 10/25/2024 10:31 AM EDT us West Bobby MD LAB BLOOD ORDERABLES Fi nal Result [facility] [address] [place] [address] * [facility] POCUS PROCDOC (10/25/2024 9:51 AM EDT) West Monge MD - 10/25/2024 9:51 AM EDT West Bobby MD 10/25/2024 11:00 AM POC Ultrasound - Bedside Performed by: Dc Santos MD Authorized by: West Bobby MD Procedure specific details: Limited Thoracic Ultrasound [...] study was technically adequate. Comments: n/a us West Bobby MD IN CLINIC/BEDSIDE ORDER SOLOMON Final Result * [facility] POCUS PROCDOC (10/25/2024 9:51 AM EDT) Narrative West Bobby MD - 10/25/2024 9:51 AM EDT West Bobby MD 10/25/2024 11:00 AM POC Ultrasound - Bedside Performed by: Dc Santos MD Authorized by: West Bobby MD Procedure specific details: Limited Cardiac Ultrasound [...] cardiac ultrasound The images were Saved in [employer] - E. The study was technically adequate. Comments: n/a West Bobby MD IN CLINIC/BEDSIDE ORDER SOLOMON Final Result * Rad Onc Aria Session Summary (10/24/2024 12:06 PM EDT) Course ID C1 [facility] RADIATION ONCOLOGY Course Intent Palliative [facility]COLOG[facility] Course Start Date 09/26/2024 1:36 PM [facility]COL[facility] Course First Treatment Date 10/24/2024 12:01 PM [facility]COL[facility] Course Last Treatment Date 10/24/2024 12:03 PM [facility]COLOG[facility] Course Elapsed Days 0 [facility] ONCOLOGY Reference Point ID Brain WBRT [facility] RADIATION ONCOLOGY Reference Point Dosage Given to Date 3 Gy [facility] ONCOLOGY Reference Point Session Dosage Given 3 Gy [facility] RADIATION ONCOLOGY Plan ID [id number] [facility] RADIATION ONCOLOGY Plan Name Brain WBRT_PTV [facility] RAD[facility]ATION ONCOLOGY Plan Fractions Treated to Date 1 [facility]A RADIATION ONCOLOGY Plan Total Fractions Prescribed 10 [facility] RADIATION ONCOLOGY Plan Prescribed Dose Per Fraction 3 Gy [facility]A RADIATION ONCOLOGY Plan Total Prescribed Dose 3,000 CGy [facility]A RADIATION ONCOLOGY Plan Primary Reference Point Brain WBRT [facility] RADIATION ONCOLOGY 10/24/2024 12:0 6 PM EDT Physician Radiation Oncology RADIATION ONCOLO GY ORDERABLES Final Result [facility] ONCOLOG[facility] * (ABNORMAL) Vancomycin, Trough, Plasma Please draw ~30 minutes prior to dose due at 0600 on 10/16/24. Please do NOT hold dose awaiting level to return. Consider obtaining level via peripheral stick. If peripheral stick is not feasible, please ensure that line ... (10/16/2024 5:49 AM EDT) Only the most recent of2 resultswithin the time period is included. Vancomycin, Trough, Plasma 5.8(L) 10.0 - 20.0 ug/mL 10/16/2024 6:34 AM EDT [facility] Blood Venous blood specimen / Unknown Venipuncture / Unknown 10/16/2024 5:49 AM EDT 10/16/2024 6:04 AM EDT Narrative [facility] - 10/16/2024 6:34 AM EDT Therapeutic Trough level: 10-20ug/mL Supra-therapeutic Trough level: >20 ug/mL us Emy Cali MD LAB BLOOD ORDERABLES F inal Result Performing Organization Address [facility] Co de Phone Number [facility] [address] [place] [address] * (ABNORMAL) Vancomycin, Peak, Plasma Please draw ~2 hours after 0600 dose of vancomycin administeredon 10/14/24 finishes infusing. Consider obtaining level via peripheral stick. If peripheral stick isnot feasible, please ensure that line is flushed well prio... (10/14/2024 2:33 PM EDT) Vancomycin, Peak, Plasma 9.2(L) 20.0 - 40.0 ug/mL 10/14/2024 3:56 PM EDT [facility] Blood Venous blood specimen / Unknown Venipuncture / Unknown 10/14/2024 2:33 PM EDT 10/14/2024 2:39 PM EDT [facility] - 10/14/2024 3:56 PM EDT Therapeutic Peak level: 20-40ug/mL Supra-therapeutic Peak level: >40 ug/mL us Hyacinth Perkins MD LAB BLOOD ORDERABLES Final Res ult Performing Organization Address [facility] Co de Phone Number [facility] [address] [place] [address] * (ABNORMAL) Prothrombin Time/INR (10/14/2024 11:06 AM EDT) Only the most recent of3 resultswithin the time period is included. Prothrombin Time 14.9(H) 12.0 - 14.3 sec LAB COAGULATION METHOD 10/14/2024 11:45 AM EDT [facility] INR 1.2(H) 0.9 - 1.1 LAB COAGULATION METHOD 10/14/2024 11:45 AM EDT [facility] Blood Venous blood specimen / Unknown Venipuncture / Unknown 10/14/2024 11:06 AM EDT 10/14/2024 11:25 AM EDT Narrative [facility] - 10/14/2024 11:45 AM EDT OPTIMAL INR RANGES FOR PATIENT ON ORAL ANTICOAGULANT THERAPY Prevention of venous thromboembolism INR 2.0 to 3.0 In patients with heart disease: Atrial fibrillation INR 2.0 to 3.0 Valvular heart disease INR 2.0 to 3.0 Tissue heart valves INR 2.0 to 3.0 Mechanical prosthetic valves INR 2.5 to 3.5 Prevention of recurrent VT INR 2.5 to 3.5 us Lisa RAMOS LAB BLOOD ORDERABLES Final Re sult [facility] [address] [place] [address] * IR Lumbar Puncture (10/14/2024 10:29 AM [...] AM COMPARISON: MR head reviewed from 10/09/24. SALES PROMOTION COORDINATOR: Lisa Romano PA-C SECONDARY RETIREMENT PLAN SPECIALIST: Dr. Gaby Ponce CONTRAST: 0 cc MEDICATIONS: [...] AM COMPARISON: MR head reviewed from 10/09/24. SALES PROMOTION COORDINATOR: Lisa Romano PA-C SECONDARY RETIREMENT PLAN SPECIALIST: Dr. Gaby Ponce CONTRAST: 0 cc MEDICATIONS: [...] Medrano on 10/19/2024 12:50 PM us Lisa RAMOS IMG IR PROCEDURES Final Resul t * CSF Panel (10/14/2024 10:24 AM EDT) Only the most recent of2 resultswithin the time period is included. Cerebrospinal Fluid Lumbar puncture / Unknown Non-blood Collection / Unknown 10/14/2024 10:24 AM EDT 10/14/2024 10:55 AM EDT us Hyacinth Perkins MD LAB BODY FLUIDS AND STOOLS ORD ERABLES Final Result [facility] [address] [place] [address] * CSF Cell Count w/ Manual Differential (10/14/2024 10:24 AM EDT) Unspun Color, CSF Colorless Colorless LAB HEMATOLOGY METHOD 10/14/2024 12:19 PM EDT [facility] Unspun Clarity, CSF Clear Clear LAB HEMATOLOGY METHOD 10/14/2024 12:19 PM EDT [facility] Spun Color, CSF LAB HEMATOLOGY METHOD 10/14/2024 12:19 PM EDT [facility] Comment:Test Not Indicated Spun Clarity, CSF LAB HEMATOLOGY METHOD 10/14/2024 12:19 PM EDT [facility] Comment:Test Not Indicated Volume CSF 4.0 cc LAB HEMATOLOGY METHOD 10/14/2024 12:19 PM EDT [facility] Tube Number, CSF Tube 4 LAB HEMATOLOGY METHOD 10/14/2024 12:19 PM EDT [facility] Red Blood Cell Count, CSF 0 0 uL uL LAB HEMATOLOGY METHOD 10/14/2024 12:19 PM EDT [facility] Comment:Test performed by ma nual method. Total Nucleated Cell Count, CSF 2 0 - 5 L LAB HEMATOLOGY METHOD 10/14/2024 12:19 PM EDT [facility] Comment:Test performed by ma nual method. Neutrophils %, CSF LAB HEMATOLOGY METHOD 10/14/2024 12:19 PM EDT [facility] Comment:Too few to count Lymphocytes %, CSF LAB HEMATOLOGY METHOD 10/14/2024 12:19 PM EDT [facility] Comment:Too few to count Monocytes/Macro phages %, CSF LAB HEMATOLOGY METHOD 10/14/2024 12:19 PM EDT [facility] Comment:Too few to count Eosinophils %, CSF LAB HEMATOLOGY METHOD 10/14/2024 12:19 PM EDT [facility] Comment:Too few to count Basophils %, CSF LAB HEMATOLOGY METHOD 10/14/2024 12:19 PM EDT [facility] Comment:Too few to count Neutrophils Absolute, CSF LAB HEMATOLOGY METHOD 10/14/2024 12:19 PM EDT [facility] Comment:Too few to count Lymphocytes Absolute, CSF LAB HEMATOLOGY METHOD 10/14/2024 12:19 PM EDT [facility] Comment:Too few to count Monocytes/Macro phages Absolute, CSF LAB HEMATOLOGY METHOD 10/14/2024 12:19 PM EDT [facility] Comment:Too few to count Eosinophils Absolute, CSF LAB HEMATOLOGY METHOD 10/14/2024 12:19 PM EDT [facility] Comment:Too few to count Basophils Absolute, CSF LAB HEMATOLOGY METHOD 10/14/2024 12:19 PM EDT [facility] Comment:Too few to count Cerebrospinal Fluid Lumbar puncture / Unknown Non-blood Collection / Unknown 10/14/2024 10:24 AM EDT 10/14/2024 10:59 AM EDT us Hyacinth Perkins MD LAB BODY FLUIDS AND STOOLS ORD ERABLES Final Result [facility] [address] [place] [address] * Fungal Culture, Cerebrospinal Fluid (CSF) and Emily Ink (10/14/2024 10:24 AM EDT) Culture No Fungal Growth at 3 Weeks 11/04/2024 10:05 AM EDT [facility] Emily Ink No fungal elements seen 11/04/2024 10:05 AM EDT [facility] Cerebrospinal Fluid Lumbar puncture / Unknown Non-blood Collection / Unknown 10/14/2024 10:24 AM EDT 10/14/2024 10:55 AM EDT us Hyacinth Perkins MD LAB MICROBIOLOGY - GENERAL ORD ERABLES Final Result [facility] [address] [place] [address] * Lactate Dehydrogenase Total, Body Fluid (SO) (10/14/2024 10:24 AM EDT) Lactate Dehydrogenase Total, Body Fluid 21 U/L 10/16/2024 12:07 AM EDT [facility] LDH Fluid Source CSF 10/17/19 12:07 AM EDT [facility] ([facility]) Cerebrospinal Fluid Non-blood Collection / Unknown 10/14/2024 10:24 AM EDT 10/14/2024 11:01 AM EDT Narrative [facility] ([facility]) - 10/16/2024 12:07 AM EDT INTERPRETIVE INFORMATION: Lactate Dehydrogenase Total, Body Fluid For information on body fluid reference ranges and/or interpretive guidance visit [email or web address]/ This test was developed and its performance characteristics determined by [facility]. It has not been cleared or approved by the [place] Food and Drug Administration. This test was performed in a CLIA certified laboratory and is intended for clinical purposes. Performed By: [facility] [address] [place] [address] Drilling Engineering Manager: Manuel Mas MD, PhD CLIA Number: [id number] Hyacinth Perkins MD LAB REF LAB BLOOD AND FLUID OR D Final Result Performing Organization Address City/[facility]/ZIP Co de Phone Number [facility] ([facility]) [address] [phone] * Meningitis/Encephalitis Panel by PCR (10/14/2024 10:24 AM EDT) Escherichia coli K1 PCR Result Not Detected Not Detected 10/14/2024 3:51 PM EDT [facility] Haemophilus influenzae PCR Result Not Detected Not Detected 10/14/2024 3:51 PM EDT [facility] Listeria monocytogenes PCR Result Not Detected Not Detected 10/14/2024 3:51 PM EDT [facility] Neisseria meningitidis PCR Result Not Detected Not Detected 10/14/2024 3:51 PM EDT [facility] Streptococcus agalactiae PCR Result Not Detected Not Detected 10/14/2024 3:51 PM EDT [facility] Streptococcus pneumoniae PCR Result Not Detected Not Detected 10/14/2024 3:51 PM EDT [facility] Cytomegalovirus (CMV) PCR Result Not Detected Not Detected 10/14/2024 3:51 PM EDT [facility] Enterovirus (EV) PCR Result Not Detected Not Detected 10/14/2024 3:51 PM EDT [facility] Herpes Simplex Virus 1 (HSV-1) PCR Result Not Detected Not Detected 10/14/2024 3:51 PM EDT [facility] Herpes Simplex Virus 2 (HSV-2) PCR Result Not Detected Not Detected 10/14/2024 3:51 PM EDT [facility] Human Herpes Virus 6 (HHV-6) PCR Result Not Detected Presumptive Negative 10/14/2024 3:51 PM EDT [facility] Human Parechovirus (HPeC) PCR Result Not Detected Not Detected 10/14/2024 3:51 PM EDT [facility] Varicella Zoster Virus (VZV) PCR Result Not Detected Not Detected 10/14/2024 3:51 PM EDT [facility] Cryptococcus neoformans/gattii PCR Result Not Detected Not Detected 10/14/2024 3:51 PM EDT [facility] Cerebrospinal Fluid Lumbar puncture / Unknown Non-blood Collection / Unknown 10/14/2024 10:24 AM EDT 10/14/2024 10:55 AM EDT Narrative [facility] - 10/14/2024 3:51 PM EDT [...] MICROBIOLOGY - GENERAL ORD ERABLES Final Result [facility] [address] [place] [address] * MADINA NELSON DNA BY PCR(CSF) (SO) (10/14/2024 10:24 AM EDT) Madina Nelson PCR CSF Not Detected Not Detected IU/mL 10/15/2024 8:27 PM EDT [facility] ([facility]) Comment: Assay Range: 52 IU/mL to 1.69E+08 IU/mL The limit of quantitation (LOQ) is 52 IU/mL. EBV DNA detected below the LOQ will be reported as Detected:<52 IU/mL. This test was developed and its performance characteristics determined by [employer]. It has not been cleared or approved by the U.S. Food and Drug Administration. Results should be used in conjunction with clinical findings, and should not form the sole basis for a diagnosis or treatment decision. Testing Performed at: [facility] [address] [place] [address], [address] [place] [address] Vice President Of Marketing: Anatoly Turk, PhD BCLD ([facility]) CLIA # [id number] FLAG Interpretation: A = Abnormal, H = High, L = Low Cerebrospinal Fluid Cerebrospinal fluid specimen / Unknown Non-blood Collection / Unknown 10/14/2024 10:24 AM EDT 10/14/2024 11:01 AM EDT Narrative [facility] ([facility]) - 10/15/2024 8:27 PM EDT [facility] Hyacinth Perkins MD LAB BODY FLUIDS AND STOOLS ORD ERABLES Final Result [facility]) * Cryptococcal Antigen, CSF (10/14/2024 10:24 AM EDT) Cryptococcal Antigen Result (CSF) Negative Negative 10/14/2024 3:50 PM EDT [facility] Cerebrospinal Fluid Lumbar puncture / Unknown Non-blood Collection / Unknown 10/14/2024 10:24 AM EDT 10/14/2024 10:55 AM EDT Hyacinth Perkins MD LAB MICROBIOLOGY - GENERAL ORD ERABLES Final Result [facility] [address] [place] [address] * HUYEN Polyoma Virus Quantitative by PCR, CSF (10/14/2024 10:24 AM EDT) Pathologist [facility] HUYEN POLYOMA VIRUS DNA, QN,CSF Not Detected Not Detected copies/mL 10/15/2024 6:34 PM EDT [facility] ([facility]) Comment: Assay Range: 72 copies/mL to 1.00E+08 copies/mL The limit of quantitation (LOQ) is 72 copies/mL. HUYEN virus DNA detected below the LOQ will be reported as Detected:<72 copies/mL. This test was developed and its performance characteristics determined by [employer]. It has not been cleared or approved by the U.S. Food and Drug Administration. Results should be used in conjunction with clinical findings, and should not form the sole basis for a diagnosis or treatment decision. Testing Performed at: [facility] [address] [place] [address], [facility] [address] [place] [address] Vice President Of Marketing: Anatoly Turk, PhD SUNITA ([facility]) CLIA # [id number] FLAG Interpretation: A = Abnormal, H = High, L = Low Cerebrospinal Fluid Cerebrospinal fluid specimen / Unknown Non-blood Collection / Unknown 10/14/2024 10:24 AM EDT 10/14/2024 11:01 AM EDT Narrative [facility] ([facility]) - 10/15/2024 6:34 PM EDT Release to patient in [facility]->Immediate Hyacinth Perkins MD LAB BODY FLUIDS AND STOOLS ORD ERABLES Final Result [facility] ([facility]) * Cerebrospinal Fluid (CSF) Culture and Gram Stain (10/14/2024 10:24 AM EDT) Pathologist [facility] Culture No growth at day 4 2024 8:24 AM EDT [facility] Gram Stain No polymorphonuclear leukocytes seen 10/17/2024 8:24 AM EDT [facility] Gram Stain No organisms seen 025 8:24 AM EDT [facility] Cerebrospinal Fluid Lumbar puncture / Unknown Non-blood Collection / Unknown 10/14/2024 10:24 AM EDT 10/14/2024 10:55 AM EDT us Hyacinth Perkins MD LAB MICROBIOLOGY - GENERAL ORD ERABLES Final Result [facility] [address] [place] [address] * CSF Cell Count W/O Diff (10/14/2024 10:24 AM EDT) Unspun Color, CSF Colorless Colorless LAB HEMATOLOGY METHOD 10/14/2024 12:10 PM EDT [facility] Unspun Clarity, CSF Clear Clear LAB HEMATOLOGY METHOD 10/14/2024 12:10 PM EDT [facility] Spun Color, CSF LAB HEMATOLOGY METHOD 10/14/2024 12:10 PM EDT [facility] Comment:Test Not Indicated Spun Clarity, CSF LAB HEMATOLOGY METHOD 10/14/2024 12:10 PM EDT [facility] Comment:Test Not Indicated Volume CSF 3.0 cc LAB HEMATOLOGY METHOD 10/14/2024 12:10 PM EDT [facility] Tube Number, CSF Tube 1 LAB HEMATOLOGY METHOD 10/14/2024 12:10 PM EDT [facility] Total Nucleated Cell Count, CSF 2 0 - 5 L LAB HEMATOLOGY METHOD 10/14/2024 12:10 PM EDT [facility] Comment:Test performed by ma nual method. Red Blood Cell Count, CSF 1 0 uL uL LAB HEMATOLOGY METHOD 10/14/2024 12:10 PM EDT [facility] Comment:Test performed by ma nual method. Cerebrospinal Fluid Lumbar puncture / Unknown Non-blood Collection / Unknown 10/14/2024 10:24 AM EDT 10/14/2024 10:59 AM EDT us Hyacinth Perkins MD LAB BODY FLUIDS AND STOOLS ORD ERABLES Final Result [facility] [address] [place] [address] * West Nile virus, CSF (10/14/2024 10:24 AM EDT) WEST NILE VIRUS AB,IGG,CSF 0.01 <=1.29 IV 10/17/2024 7:33 AM EDT [facility] ([facility]) WEST NILE VIRUS AB,IGM,CSF 0.00 <=0.89 IV 10/17/2024 7:33 AM EDT [facility] ([facility]) Cerebrospinal Fluid Cerebrospinal fluid specimen / Unknown Non-blood Collection / Unknown 10/14/2024 10:24 AM EDT 10/14/2024 11:01 AM EDT Narrative [facility] ([facility]) - 10/17/2024 7:33 AM EDT INTERPRETIVE INFORMATION: [...] members of the Flaviviridae family, such as [place] encephalitis virus, show extensive cross-reactivity with West [...] developed and its performance characteristics determined by [facility]. It has not been cleared or approved [...] members of the Flaviviridae family, such as [place] encephalitis virus, show extensive cross-reactivity with West [...] developed and its performance characteristics determined by [facility]. It has not been cleared or approved by the [place] Food and Drug Administration. This test was performed in a CLIA certified laboratory and is intended for clinical purposes. Performed By: [facility] [address] [place] [address] Drilling Engineering Manager: Manuel Mas MD, PhD CLIA Number: [id number] us Hyacinth Perkins MD LAB BLOOD ORDERABLES Final Res ult [facility] ([facility]) [address] [place] [address] * Protein, CSF (10/14/2024 10:24 AM EDT) Total Protein, CSF 31 15 - 45 mg/dL 10/14/2024 12:15 PM EDT [facility] Cerebrospinal Fluid Lumbar puncture / Unknown Non-blood Collection / Unknown 10/14/2024 10:24 AM EDT 10/14/2024 11:01 AM EDT [facility] 10/14/[facility] 12:15 PM EDT Blood, when present in CSF, invalidates protein. Interpret results in the context of the patient's condition and other laboratory results. Hyacinth Perkins MD LAB BODY FLUIDS AND STOOLS ORD ERABLES Final Result Performing Organization Address [facility] Phone Number [facility] [address] [place] [address] * (ABNORMAL) Glucose, CSF (10/14/2024 10:24 AM EDT) Glucose, CSF 89(H) 41 - 70 mg/dL 10/14/2024 12:15 PM EDT [facility] Cerebrospinal Fluid Lumbar puncture / Unknown Non-blood Collection / Unknown 10/14/2024 10:24 AM EDT 10/14/2024 11:01 AM EDT [facility] - 10/14/2024 12:15 PM EDT CSF glucose values should be approximately 60 % of the plasma values and must always be compared with concurrently measured plasma values for adequate clinical interpretation. No reference ranges have been established for pediatric patients. Hyacinth Perkins MD LAB BODY FLUIDS AND STOOLS ORD ERABLES Final Result Performing Organization Address [facility] Phone Number [facility] [address] [place] [address] * Non-Gynecologic Cytology (10/14/2024 10:24 AM EDT) Case Report Cytology Case: [id number] Authorizing Provider: Hyacinth Perkins MD Collected: 10/14/2024 1024 Ordering Location: [facility] Emergency Department Received: 10/14/2024 1353 Pathologist: Miryam Navarro MD Specimen: Cerebrospinal Fluid, CEREBROSPINAL FLUID 10/17/2024 4:58 PM EDT [facility] Final Diagnosis A. CEREBROSPINAL FLUID: - NO EVIDENCE OF MALIGNANCY. 10/17/2024 4:58 PM EDT [facility] at 1658 EDT Clinical History H/O SCLC, mets to brain 10/17/2024 4:58 PM EDT [facility] Previous Cancer Yes 10/17/2024 4:58 PM EDT [facility] Previous Cancer Primary Site Lung Cancer 10/17/2024 4:58 PM EDT [facility] Gross Description A. CEREBROSPINAL FLUID 8 ml's clear fluid, 3 ml's tube one, 0.5 ml's tube two, 1.5 ml's tube three and 3 ml's tube four processed as thin prep 10/17/2024 4:58 PM EDT [facility] Cerebrospinal Fluid Cerebrospinal fluid specimen / Unknown Non-blood Collection / Unknown 10/14/2024 10:24 AM EDT 10/14/2024 1:53 PM EDT us Hyacinth Perkins MD LAB CYTOLOGY ORDERABLES Final Result Performing Organization Address City/State/[facility] Co de Phone Number [facility] [address] [place] [address] * CT Chest w IV Contrast (10/13/2024 8:26 PM EDT) Only the most recent of2 resultswithin the time period is included. Anatomical Region Laterality Modality Chest Computed Tomogra [...] Woods MD on 10/13/2024 9:09 PM us Jamila M Stanford DO IMG CT PROCEDURES Final Re sult * MR Head w and wo IV Contrast (10/13/2024 6:48 AM EDT) Only the most recent of3 resultswithin the time period is included. Anatomical Region Laterality Modality Head Magnetic Resonan [...] Draper MD on 10/13/2024 12:36 PM us Sanya Ledezma MD IMG MRI PROCEDURES Final Re sult * Urine Meek Panel (10/13/2024 2:33 AM EDT) Only the most recent of2 resultswithin the time period is included. Extra Reflex urine culture not indicated 10/13/2024 11:01 AM EDT [facility] Comment: Previously prelim verified as [...] RAMOS LAB URINE ORDERABLES Gracia l Result [facility] [address] [place] [address] * Sodium, urine, random (10/13/2024 2:33 AM EDT) Sodium, Urine 49 mmol/L 10/13/2024 3:10 AM EDT [facility] Urine Urine specimen obtained by clean catch procedure / Unknown Non-blood Collection / Unknown 10/13/2024 2:33 AM EDT 10/13/2024 2:51 AM EDT Jamila M Stanford DO LAB URINE ORDERABLES Final Result [facility] [address] [place] [address] * Osmolality, urine (10/13/2024 2:33 AM EDT) Osmolality, Urine 504 50 - 1,200 mOsm/kg 10/13/2024 4:35 AM EDT [facility] Urine Urine specimen obtained by clean catch procedure / Unknown Non-blood Collection / Unknown 10/13/2024 2:33 AM EDT 10/13/2024 2:51 AM EDT Jamila Baumon DO LAB URINE ORDERABLES Final Result Performing Organization Address City/[facility] Co de Phone Number [facility] [address] [place] [address] * (ABNORMAL) Urinalysis with reflex microscopic (Culture NOT Included) (10/13/2024 2:33 AM EDT) Only the most recent of2 resultswithin the time period is included. Color, Urine Yellow LAB URINALYSIS - AUTOMATED METHOD 10/13/2024 2:45 AM EDT [facility] Clarity, Urine Cloudy LAB URINALYSIS - AUTOMATED METHOD 10/13/2024 2:45 AM EDT [facility] Spec [place], Urine >1.030(H) 1.005 - 1.030 LAB URINALYSIS - AUTOMATED METHOD 10/13/2024 2:45 AM EDT [facility] pH, Urine 6.0 5.0 - 8.0 LAB URINALYSIS - AUTOMATED METHOD 10/13/2024 2:45 AM EDT [facility] Protein, Urine Trace(A) Negative mg/dL LAB URINALYSIS - AUTOMATED METHOD 10/13/2024 2:45 AM EDT [facility] Glucose, Urine >=1000(A) Negative mg/dL LAB URINALYSIS - AUTOMATED METHOD 10/13/2024 2:45 AM EDT [facility] Ketones, Urine Negative Negative mg/dL LAB URINALYSIS - AUTOMATED METHOD 10/13/2024 2:45 AM EDT [facility] Blood, Urine Negative Negative LAB URINALYSIS - AUTOMATED METHOD 10/13/2024 2:45 AM EDT [facility] Bilirubin, Urine Negative Negative LAB URINALYSIS - AUTOMATED METHOD 10/13/2024 2:45 AM EDT [facility] Urobilinogen, Urine 1.0 0.2 to 1.0 mg/dL LAB URINALYSIS - AUTOMATED METHOD 10/13/2024 2:45 AM EDT [facility] Leukocytes, Urine Negative Negative LAB URINALYSIS - AUTOMATED METHOD 10/13/2024 2:45 AM EDT [facility] Nitrite, Urine Negative Negative LAB URINALYSIS - AUTOMATED METHOD 10/13/2024 2:45 AM EDT [facility] Urine Urine specimen obtained by clean catch procedure / Unknown Non-blood Collection / Unknown 10/13/2024 2:33 AM EDT 10/13/2024 2:40 AM EDT us Callie RAMOS LAB URINE ORDERABLES Gracia l Result [facility] [address] [place] [address] * Anti Xa Level Low Molecular Weight (10/12/2024 10:37 PM EDT) Only the most recent of2 resultswithin the time period is included. Anti Xa Level Low Molecular Weight Heparin 1.20 <2.00 IU/mL 10/12/2024 11:52 PM EDT [facility] Blood Venous blood specimen / Unknown Venipuncture / Unknown 10/12/2024 10:37 PM EDT 10/12/2024 10:43 PM EDT Narrative [facility] - 10/12/2024 11:52 PM EDT Therapeutic Range: LMWH enoxaparin 1mg/kg/dose, 12hrs - peak (3-5 hours after dose): 0.5 - 1.0 IU/mL LMWH enoxaparin 1.5mg/kg/dose, 24hrs - peak (3-5 hours after dose): 1.0 - 2.0 IU/mL LMWH enoxaparin prophylaxis: Not established us Sanya Ledezma MD LAB BLOOD ORDERABLES Final Result [facility] [address] [place] [address] * CT Abdomen Pelvis w IV Contrast (10/12/2024 5:48 PM EDT) Only the most recent of2 resultswithin the time period is included. Anatomical Region Laterality Modality Abdomen, Pelvis Computed [...] wo IV Contrast (10/12/2024 5:48 PM EDT) Only the most recent of3 resultswithin the time period is included. Anatomical Region Laterality Modality Head Computed Tomogra [...] MD on 10/12/2024 6:59 PM [address] RAMOS IMG CT PROCEDURES Final R [...] IMG XR PROCEDURES Final R esult * (ABNORMAL) Procalcitonin (10/12/2024 4:51 PM EDT) Procalcitonin, Plasma 0.69(H) <0.09 ng/mL 10/12/2024 5:39 PM EDT [facility] Blood Venous blood specimen / Unknown Venipuncture / Unknown 10/12/2024 4:51 PM EDT 10/12/2024 5:09 PM EDT Narrative [facility] - 10/12/2024 5:39 PM EDT [...] predict 28 day mortality risk. Please consult www.riwxal-flg-vlltkosixy.com for more information. Test performed at [facility]. us Callie RAMOS LAB BLOOD ORDERABLES Gracia l Result [facility] [address] [place] [address] * (ABNORMAL) C-Reactive protein (10/12/2024 4:51 PM EDT) [facility] CRP, Plasma 90.1(H) <=8.0 mg/L 10/12/2024 5:38 PM EDT [facility] Blood Venous blood specimen / Unknown Venipuncture / Unknown 10/12/2024 4:51 PM EDT 10/12/2024 5:09 PM EDT Narrative [facility] - 10/12/2024 5:38 PM EDT This CRP test is appropriate for assessment of infection, systemic inflammation and/or tissue injury. To assess cardiovascular disease risk order high sensitivity CRP (CRPH). us Callie Neely PA LAB BLOOD ORDERABLES Gracia l Result [facility] [address] [place] [address] * (ABNORMAL) Osmolality (10/12/2024 4:51 PM EDT) [facility] Osmolality, Serum 279(L) 280 - 301 mOsm/Kg 10/13/2024 12:14 AM EDT [facility] Blood Venous blood specimen / Unknown Venipuncture / Unknown 10/12/2024 4:51 PM EDT 10/12/2024 5:09 PM EDT us Jamila Stanford DO LAB BLOOD ORDERABLES Final Result Performing Organization Address City/[facility]/ZIP Co de Phone Number [facility] [address] [place] [address] * (ABNORMAL) Caris [place] Cancer Seek Hybrid??? + IHCs and Other Tests by Tumor Type (10/05/2024 8:54 AM EDT) [facility] CARLISA PD-L1 (22C3) Negative 2024 8:15 PM EDT [facility] [employer] Genomic Loss of Heterozygosity - [place] Low 4% 10/16/2024 8:15 PM EDT [facility] [employer] Microsatellite Instability - [place] Stable 10/16/2024 8:15 PM EDT [facility] CARIS Tumor Mutational [place] - [place] High 11 per Mb 10/16/2024 8:15 PM EDT [facility] CARIS Her2/Megan Negative 10/16/2024 8:15 PM EDT [employer] HLA-A - [place] A*02:01,A*24 :02 10/16/2024 8:15 PM EDT [employer] HLA-B - [place] B*08:01,B*39 :06 10/16/2024 8:15 PM EDT [employer] HLA-C - [place] C*07:01,C*07 :02 10/16/2024 8:15 PM EDT [facility] Tissue Non-blood Collection / Unknown 10/05/2024 8:54 AM EDT 10/05/2024 8:54 AM EDT Narrative This result has genomic variants that were not included in this document. Satnam Dunne MD LAB MOL DX NO SOURCE Fi nal Result Performing Organization Address City/[facility]/ZIP Co de Phone Number [facility] [address] [place] [address], * TSH reflex FT4 (10/04/2024 9:43 AM EDT) Pathologist [facility] Thyroid Stimulating Hormone, Plasma 0.90 0.40 - 4.20 uIU/mL 10/04/2024 10:29 AM EDT [facility] Blood Venous blood specimen / Unknown Venipuncture / Unknown 10/04/2024 9:43 AM EDT 10/04/2024 9:55 AM EDT Satnam Dunne MD LAB BLOOD ORDERABLES Fi nal Result [facility] [address] [place] [address] * Surgical Pathology Exam (09/05/2024 8:29 AM EDT) Case Report Surgical Pathology Case: [id number] Authorizing Provider: Abhilash Bangura MD Collected: 09/05/2024 0829 Ordering Location: [facility] Received: 09/05/2024 0840 Pathologist: Mali Benton MD Specimens: A) - Brain, Sonopet Contents B) - Brain, Brain Tumor 09/06/2024 2:24 PM EDT [facility] Final Diagnosis BRAIN, RESECTION OF MASS AND SONOPET CONTENTS (A, B): - METASTATIC CARCINOMA, MORPHOLOGICALLY COMPATIBLE WITH KNOWN SMALL CELL CARCINOMA 09/06/2024 2:24 PM EDT [facility] at 1424 EDT Tumor Blocks Tumor blocks: B1-3 08/17 2:24 PM EDT [facility] Tumor Adequacy for Ancillary Testing Adequate Tissue Present 09/06/2024 2:24 PM EDT [facility] Clinical Information Brain mass [G93.89] Per electronic medical record, the clinical history is significant for: ...HTN, DM2, COPD, Stage III small cell lung (dX july/2023) CA s/p carbo/etop, and paroxysmal Afib (s/p CTI ablation, on NOAC), presenting w/ 1-2 weeks of progressive RLE weakness, numbness, and gait instability... Imaging MRI head (09/02/23): ...1. Enhancing extra-axial mass in the left frontal vertex region with invasion of the superior sagittal sinus and filling defect in the sinus suggestive of bland or tumor thrombus. Adjacent intraparenchymal hemorrhage and surrounding vasogenic edema in the left frontal lobe, grossly stable. Differential for the mass includes meningioma and metastasis. 2. Left cerebral convexity subdural hematoma, stable to slightly increased in size compared to prior exam. No significant midline shift.... CT chest/abdomen/pelvi s (09/01/24): ...IMPRESSION: 1. No acute findings in the chest. 2. No acute findings in the abdomen or pelvis. 3. No evidence of metastatic disease within the chest, abdomen or pelvis.... 09/06/2024 2:24 PM EDT [facility] Gross Description A. SONOPET CONTENTS Received fresh and placed in formalin labeled S onopet contents , is one aggregate of red-pink soft fragments of tissue measuring 1.1 x 0.7 x 0.1 cm. Entirely submitted in cassette A1. Cold Time: 11m Vonnie Stephens B. BRAIN TUMOR Received fresh and placed in formalin labeled b rain tumor , is one red-pink soft fragment of tissue measuring 3.3 x 1.2 x 0.8 cm. Specimen is serially sectioned and entirely submitted in cassettes B1-B3. Cold Time: 7m Vonnie Og Kat 09/06/2024 2:24 PM EDT [facility] Note: A resident was involved in the service. I attest I examined the relevant preparations for the specimens and confirmed the diagnosis or interpretation. 09/06/2024 2:24 PM EDT [facility] Tissue Brain structure / Unknown 09/05/2024 8:29 AM EDT 09/05/2024 8:40 AM EDT Comment:Pre-op diagnosis: Brain mass [G93.89] Tissue specimen (specimen) Brain structure / Unknown 09/05/2024 8:33 AM EDT 09/05/2024 8:40 AM EDT Comment:Pre-op diagnosis: Brain mass [G93.89] Abhilash Bangura MD LAB PATHOLOGY ORDERABLES Final Result [facility] [address] [place] [address] * OH AN ELECTIVE ENDOTRACHEAL AIRWAY, PB ANESTHESIA PLACEHOLDER (09/05/2024 7:43 AM EDT) Narrative Ry Villalba MD - 09/05/2024 7:43 AM EDT Ry Villalba MD 09/05/2024 11:40 AM Intubation Date/Time: 09/05/2024 7:43 AM Reason: elective Airway not difficult General Information and Staff Patient location during procedure: OR Anesthesiologist: Ry Villalba MD Resident: Evy Torres MD Performed: Resident Patient Condition Indications for airway management: anesthesia Patient position: sniffing Final Airway Details Final airway type: endotracheal airway Successful airway: ETT Cuffed: yes Successful intubation technique: direct laryngoscopy Adjuncts used in placement: intubating stylet and cricoid pressure Endotracheal tube insertion site: oral Blade: Myla Blade size: #3 ETT size (mm): 7.0 Cormack-Lehane Classification: grade I - full view of glottis Placement verified by: chest auscultation and capnometry Measured from: lips ETT to lips (cm): 22 Additional Comments Atraumatic. No change to dentition. Ry Villalba MD ANESTHESIA ORDERABLES Final Resu lt * Anti Xa Level Unfractionated Heparin (09/05/2024 7:02 AM EDT) Anti Xa Level Unfractionated Heparin <0.11 <1.00 IU/mL LAB COAGULATION METHOD 09/05/2024 7:55 AM EDT [facility] Blood Venous blood specimen / Unknown Venipuncture / Unknown 09/05/2024 7:02 AM EDT 09/05/2024 7:08 AM EDT Narrative [facility] - 09/05/2024 7:55 AM EDT Therapeutic Range: UFH Full Dose and ACS/VT protocols*: 0.30 - 0.70 IU/mL UFH Low Dose protocol*: 0.25 - 0.50 IU/mL UFH prophylaxis: Not established Zoraida Herbert MD LAB BLOOD ORDERABLES Final Re sult Performing Organization Address City/[facility]/ZIP Co de Phone Number [facility] [address] [place] [address] * Type and Screen (09/05/2024 7:02 AM EDT) ABO/Rh O Positive 09/05/2024 5:44 AM EDT BLOOD BANK Antibody Screen Negative 09/05/2024 5:44 AM EDT BLOOD BANK Specimen Expiration 09/08/2024 23:59 09/05/2024 5:44 AM EDT BLOOD BANK Blood Venous blood specimen / Unknown Venipuncture / Unknown 09/05/2024 7:02 AM EDT 09/05/2024 7:11 AM EDT Ry Villalba MD LAB BLOOD BANK TEST ORDERABLES F inal Result BLOOD BANK [address] [place] [address], [place] * (ABNORMAL) CBC W/O Differential (09/05/2024 3:15 AM EDT) WBC Count 8.69 3.70 - 10.30 10*3/uL LAB HEMATOLOGY METHOD 09/05/2024 3:33 AM EDT [facility] RBC Count 3.43(L) 3.90 - 5.20 10*6/uL LAB HEMATOLOGY METHOD 09/05/2024 3:33 AM EDT [facility] HGB 10.3(L) 11.2 - 15.7 g/dL LAB HEMATOLOGY METHOD 09/05/2024 3:33 AM EDT [facility] HCT 33.2(L) 34.0 - 45.0 % LAB HEMATOLOGY METHOD 09/05/2024 3:33 AM EDT [facility] Platelet Count 158 155 - 369 10*3/uL LAB HEMATOLOGY METHOD 09/05/2024 3:33 AM EDT [facility] MCV 97 79 - 98 fL LAB HEMATOLOGY METHOD 09/05/2024 3:33 AM EDT [facility] MCH 30.0 26.0 - 32.0 pg LAB HEMATOLOGY METHOD 09/05/2024 3:33 AM EDT [facility] MCHC 31.0 30.7 - 35.5 g/dL LAB HEMATOLOGY METHOD 09/05/2024 3:33 AM EDT [facility] RDW 15.2(H) 11.5 - 14.5 % LAB HEMATOLOGY METHOD 09/05/2024 3:33 AM EDT [facility] MPV 9.8 8.8 - 12.5 fL LAB HEMATOLOGY METHOD 09/05/2024 3:33 AM EDT [facility] nRBC 0.0 <=0.0 per 100 WBCs LAB HEMATOLOGY METHOD 09/05/2024 3:33 AM EDT [facility] Blood Venous blood specimen / Unknown Venipuncture / Unknown 09/05/2024 3:15 AM EDT 09/05/2024 3:26 AM EDT us Zoraida Herbert MD LAB BLOOD ORDERABLES Final Re sult [facility] [address] [place] [address] * MR Head w IV Contrast (09/04/2024 4:21 PM EDT) Anatomical Region Laterality Modality Head Magnetic Resonan ce Impressions 09/05/2024 8:50 AM EDT Left paramedian posterior frontal extra-axial mass. Note: The study was performed for stereotactic localization. CRITICAL RESULT: No. COMMUNICATION: Per this written report. Drafted by Halle Hurley MD on 09/05/2024 8:43 AM Final report signed by Halle Hurley MD on 09/05/2024 8:50 AM Narrative 09/05/2024 8:50 AM EDT CLINICAL INDICATION: Preoperative evaluation. TECHNIQUE: Postcontrast coronal 1mm thick T1-weighted MP RAGE images were obtained and axial reformatted images were created. 11.3 mL of Gadavist were administered intravenously. COMPARISON: MRI of the brain dated September 01, 2024. FINDINGS: There is a heterogeneous enhancing extra-axial mass in the left frontal vertex region. The mass measures 3.5 x 3.4 x 2.8 cm in size. This appears similar to previous MRI. 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 Arteriovenous malformation is also possible. There appears to be some enhancing dural thickening surrounding the left cerebral hemisphere. Fiducial markers are visible adjacent to the scalp. Procedure Note Halle Hurley MD - 09/05/2024 CLINICAL INDICATION: Preoperative evaluation. TECHNIQUE: Postcontrast coronal 1mm thick T1-weighted MP RAGE images were obtainedand axial reformatted images were created. 11.3 mL of Gadavist wereadministered intravenously. COMPARISON: MRI of the brain dated September 01, 2024. FINDINGS: There is a heterogeneous enhancing extra-axial mass in the left frontalvertex region. The mass measures 3.5 x 3.4 x 2.8 cm in size. This appearssimilar to previous MRI. There is persistent encroachment upon the superior sagittal sinus by themass with apparent persistent focal thrombosis of the posterior aspect ofthe superior sagittal sinus. There appears to be some additional enhancement surrounding the masssuggesting anomalous vascular structures within the left frontal lobeadjacent to the extra- axial mass. Arteriovenous malformation is alsopossible. There appears to be some enhancing dural thickening surrounding the leftcerebral hemisphere. Fiducial markers are visible adjacent to the scalp. IMPRESSION: Left paramedian posterior frontal extra-axial mass. Note: The study was performed for stereotactic localization. CRITICAL RESULT: No. COMMUNICATION: Per this written report. Drafted by Halle Hurley MD on 09/05/2024 8:43 AM Final report signed by Halle Hurley MD on 09/05/2024 8:50 AM Zoraida Herbert MD IMG MRI PROCEDURES Final Resu lt * TSH (09/02/2024 3:25 AM EDT) Thyroid Stimulating Hormone, Plasma 0.67 0.40 - 4.20 uIU/mL 09/02/2024 4:29 AM EDT [facility] Blood Venous blood specimen / Unknown Venipuncture / Unknown 09/02/2024 3:25 AM EDT 09/02/2024 3:52 AM EDT Zoraida Herbert MD LAB BLOOD ORDERABLES Final Re sult [facility] [address] [place] [address] * (ABNORMAL) Hemoglobin A1c (09/02/2024 3:25 AM EDT) Hemoglobin A1c 6.3(H) <5.7 % 09/02/2024 6:18 AM EDT [facility] Blood Venous blood specimen / Unknown Venipuncture / Unknown 09/02/2024 3:25 AM EDT 09/02/2024 3:56 AM EDT Narrative [facility] - 09/02/2024 6:18 AM EDT HA1C Interpretive Data: Diagnosis of Diabetes: Diabetic > or = 6.5% Pre-diabetic 5.7 to 6.4% Non-diabetic < or = 5.6% Glycemic Targets for Type I and Type II Diabetics: Non- Adults <7.0% Adults <6.0% Children and Adolescents <7.5% Source: [place] [employer]. Standards of medical care in diabetes,2017. Diabetes Care.2017:40 (suppl 1):S1-S135. us Zoraida Herbert MD LAB BLOOD ORDERABLES Final Re sult [facility] [address] [place] [address] * (ABNORMAL) Renal Function Panel, Plasma (09/02/2024 3:25 AM EDT) Glucose, Plasma 249(H) 74 - 99 mg/dL 09/02/2024 4:29 AM EDT [facility] BUN, Plasma 15 8 - 23 mg/dL 09/02/2024 4:29 AM EDT [facility] Creatinine, Plasma 0.75 0.60 - 1.10 mg/dL 09/02/2024 4:29 AM EDT [facility] BUN/Creatinine Ratio 20 09/02/2024 4:29 AM EDT [facility] Sodium, Plasma 139 136 - 145 mmol/L 09/02/2024 4:29 AM EDT [facility] Potassium, Plasma 3.7 3.6 - 4.9 mmol/L 09/02/2024 4:29 AM EDT [facility] Chloride, Plasma 103 97 - 107 mmol/L 09/02/2024 4:29 AM EDT [facility] CO2, Plasma 23 22 - 29 mmol/L 09/02/2024 4:29 AM EDT [facility] Anion Gap 13 6 - 16 mmol/L 09/02/2024 4:29 AM EDT [facility] Total Calcium, Plasma 8.9 8.9 - 10.2 mg/dL 09/02/2024 4:29 AM EDT [facility] Phosphorus, Plasma 2.3(L) 2.5 - 4.5 mg/dL 09/02/2024 4:29 AM EDT [facility] Albumin, Plasma 3.7 3.5 - 5.2 g/dL 09/02/2024 4:29 AM EDT [facility] eGFRcr 89.6 mL/min/1.7 3m*2 09/02/2024 4:29 AM EDT [facility] Comment:Reported eGFRcr in m L/min/1.73m2 is based the CKD-EPI 2020 equation that does not use a race coefficient. Blood Venous blood specimen / Unknown Venipuncture / Unknown 09/02/2024 3:25 AM EDT 09/02/2024 3:52 AM EDT us Zoraida Herbert MD LAB BLOOD ORDERABLES Final Re sult [facility] [address] [place] [address] * (ABNORMAL) Lipid panel (09/02/2024 3:25 AM EDT) Cholesterol, Plasma 128 <200 mg/dL 09/02/2024 4:29 AM EDT [facility] Comment: Cholesterol Reference Range (age >17 years): Desirable <200 mg/dL Borderline 200 to 239 mg/dL Undesirable >239 mg/dL HDL 46(L) >=50 mg/dL 09/02/2024 4:29 AM EDT [facility] Comment: HDL Cholesterol Reference Ranges (age >17 years): Female, acceptable > or = 50 mg/dL Male, acceptable > or = 40 mg/dL Triglycerides, Plasma 67 <150 mg/dL 09/02/2024 4:29 AM EDT [facility] Comment: Triglyceride Reference Range (age >17 years): Desirable: <150 mg/dL Borderline high: 150 to 199 mg/dL High: 200 to 499 mg/dL Very high: >499 mg/dL Increased risk of pancreatitis: >1000 mg/dL Cholesterol/HDL Ratio 3 09/02/2024 4:29 AM EDT [facility] LDL, Calculated 68 <100 mg/dL 4:29 AM EDT [facility] Comment: LDL Cholesterol Reference Range (age >17 years): Optimal: <100 mg/dL Near or above optimal: 100 - 129 mg/dL Borderline high: 130 - 159 mg/dL High: 160 - 189 mg/dL Very high: >189 mg/dL LDL Cholesterol Reference Range (age <18 years): Desirable: <110 mg/dL Borderline: 110 - 129 mg/dL Undesirable: >130 mg/dL LDL Cholesterol is calculated using the Romeo/NIH equation. Fasting greater than or equal to 12 hours? Unknown 09/02/2024 4:29 AM EDT [facility] Blood Venous blood specimen / Unknown Venipuncture / Unknown 09/02/2024 3:25 AM EDT 09/02/2024 3:52 AM EDT us Zoraida Herbert MD LAB BLOOD ORDERABLES Final Re sult [facility] [address] [place] [address] * MR Venogram Head w IV Contrast (09/01/2024 5:48 PM EDT) Anatomical Region Laterality Modality Head Magnetic Resonan ce Impressions 09/02/2024 2:22 AM EDT Filling defect compatible with thrombus within the superior sagittal sinus adjacent to the left frontal vertex extra-axial mass and hemorrhage suggestive of invasion of the superior sagittal sinus and bland or tumor thrombus. There is moderate to severe narrowing of the sinus in this region. There is also narrowing of the cortical veins in the region of the mass. CRITICAL RESULT: No. COMMUNICATION: Per this written report. Drafted by Barron Garcia MD on 09/02/2024 2:13 AM Final report signed by Barron Garcia MD on 09/02/2024 2:22 AM Narrative 09/02/2024 2:22 AM EDT CLINICAL INDICATION: assess for brain mets vs stroke TECHNIQUE: Postcontrast sagittal dynamic MR venography sequences were obtained. Subtraction images were created and MIP images were created. A total of 11.3 mL of Gadavist were administered intravenously. COMPARISON: CTV head August 31, 2024 FINDINGS: Diagnostic Quality: Adequate. Filling defect compatible with thrombus within the superior sagittal sinus adjacent to the left frontal vertex extra-axial mass and hemorrhage. This causes moderate to severe narrowing of the superior sagittal sinus. Narrowing of one of the left cortical veins near the junction with the superior sagittal sinus in the region of the mass. The remaining cortical veins are normal in appearance. There is normal enhancement of the transverse and sigmoid sinuses with no filling defects to suggest thrombosis. The straight sinus, Vein of [place] and deep venous system are grossly normal. Other Findings: None. Procedure Note Barron Garcia MD - 09/02/2024 CLINICAL INDICATION: assess for brain mets vs stroke TECHNIQUE: Postcontrast sagittal dynamic MR venography sequences were obtained.Subtraction images were created and MIP images were created. A total of11.3 mL of Gadavist were administered intravenously. COMPARISON: CTV head August 31, 2024 FINDINGS: Diagnostic Quality: Adequate. Filling defect compatible with thrombus within the superior sagittal sinusadjacent to the left frontal vertex extra-axial mass and hemorrhage. Thiscauses moderate to severe narrowing of the superior sagittal sinus.Narrowing of one of the left cortical veins near the junction with thesuperior sagittal sinus in the region of the mass. The remaining corticalveins are normal in appearance. There is normal enhancement of thetransverse and sigmoid sinuses with no filling defects to suggestthrombosis. The straight sinus, Vein of [place] and deep venous system aregrossly normal. Other Findings: None. IMPRESSION: Filling defect compatible with thrombus within the superior sagittal sinusadjacent to the left frontal vertex extra-axial mass and hemorrhagesuggestive of invasion of the superior sagittal sinus and bland or tumorthrombus. There is moderate to severe narrowing of the sinus in thisregion. There is also narrowing of the cortical veins in the region of themass. CRITICAL RESULT: No. COMMUNICATION: Per this written report. Drafted by Barron Garcia MD on 09/02/2024 2:13 AM Final report signed by Barron Garcia MD on 09/02/2024 2:22 AM us Zoraida Herbert MD IMG MRI PROCEDURES Final Resu lt * CT Venogram Head (08/31/2024 8:37 PM EDT) Anatomical Region Laterality Modality Head Computed Tomogra phy Impressions 08/31/2024 10:02 PM EDT Hyperdense hemorrhage and/or mass again noted in the left frontal vertex region. This abuts the superior sagittal sinus, and there is a large filling defect within the superior sagittal sinus in this region consistent with thrombus and/or tumor invasion causing near occlusion of the sinus in this region. There is also near occlusion of a cortical vein in the same area. MRI head with and without contrast is recommended to assess for underlying mass. CRITICAL RESULT: No. COMMUNICATION: Per this written report. Drafted by Barron Garcia MD on 08/31/2024 9:52 PM Final report signed by Barron Garcia MD on 08/31/2024 10:02 PM Narrative 08/31/2024 10:02 PM EDT CLINICAL INDICATION: Dural venous sinus thrombosis suspected TECHNIQUE: Spiral axial CT images of the head were obtained with IV contrast administration during the venous phase. MIP images were created. A total of 100 mL of Omnipaque 350 were administered intravenously. Total DLP (Dose-Length Product): 276 mGy*cm. Please note: The reported value represents the total of one or more individual components during the CT acquisition on this date and at this time, and as such, the same value may appear in more than one CT report depending on the interpreting/reporting physicians. COMPARISON: Head CT August 31, 2024 FINDINGS: Diagnostic Quality: Adequate Hyperdense hemorrhage and/or mass again noted in the left frontal vertex region. This abuts the superior sagittal sinus, where there is a large filling defect compatible with thrombus and/or tumor invasion. This causes severe stenosis and near occlusion of the superior sagittal sinus in this region. There is also severe stenosis and near occlusion of a cortical vein in this region on the left side. The superior sagittal sinus is otherwise patent. The bilateral transverse and sigmoid sinuses are patent. The straight sinus, Vein of [place] and deep venous system are grossly normal. Other findings: None. Procedure Note Barron Garcia MD - 08/31/2024 CLINICAL INDICATION: Dural venous sinus thrombosis suspected TECHNIQUE: Spiral axial CT images of the head were obtained with IV contrastadministration during the venous phase. MIP images were created. A totalof 100 mL of Omnipaque 350 were administered intravenously. Total DLP(Dose-Length Product): 276 mGy*cm. Please note: The reported valuerepresents the total of one or more individual components during the CTacquisition on this date and at this time, and as such, the same value mayappear in more than one CT report depending on the interpreting/reportingphysicians. COMPARISON: Head CT August 31, 2024 FINDINGS: Diagnostic Quality: Adequate Hyperdense hemorrhage and/or mass again noted in the left frontal vertexregion. This abuts the superior sagittal sinus, where there is a largefilling defect compatible with thrombus and/or tumor invasion. This causessevere stenosis and near occlusion of the superior sagittal sinus in thisregion. There is also severe stenosis and near occlusion of a corticalvein in this region on the left side. The superior sagittal sinus isotherwise patent. The bilateral transverse and sigmoid sinuses are patent.The straight sinus, Vein of [place] and deep venous system are grosslynormal. Other findings: None. IMPRESSION: Hyperdense hemorrhage and/or mass again noted in the left frontal vertexregion. This abuts the superior sagittal sinus, and there is a largefilling defect within the superior sagittal sinus in this regionconsistent with thrombus and/or tumor invasion causing near occlusion ofthe sinus in this region. There is also near occlusion of a cortical veinin the same area. MRI head with and without contrast is recommended toassess for underlying mass. CRITICAL RESULT: No. COMMUNICATION: Per this written report. Drafted by Barron Garcia MD on 08/31/2024 9:52 PM Final report signed by Barron Garcia MD on 08/31/2024 10:02 PM us Manuel Almonte MD IMG CT PROCEDURES Final Re sult * CT Lumbar Spine wo IV Contrast (08/31/2024 6:57 PM EDT) Anatomical Region Laterality Modality Spine, L-spine Computed Tomogra phy Impressions 08/31/2024 10:14 PM EDT No acute fracture or malalignment of the cervical and lumbar spine. CRITICAL RESULT: No. COMMUNICATION: Per this written report. Preliminary report signed by Silas Guidry MD on 08/31/2024 8:32 PM By electronically signing this report, I, the attending physician, attest that I have personally reviewed the images/data for the above examination(s) and agree with the final edited report. Drafted by Silas Guidry MD on 08/31/2024 8:28 PM Final report signed by Talisha Mo MD on 08/31/2024 10:14 PM Narrative 08/31/2024 10:14 PM EDT CLINICAL INDICATION: Neck trauma, focal neuro deficit or paresthesia (Age 16-64y) TECHNIQUE: Imaging of the entire cervical, and lumbar spine was performed, using spiral technique, without contrast administration. Reformatted images in the coronal and sagittal planes were generated from the axial data set to facilitate diagnostic accuracy and/or surgical planning. Total DLP (Dose-Length Product): 3123.65 mGy.cm (accession [id number]), 3123.65 mGy.cm (accession [id number]). Please note: The reported value represents the total of one or more individual components during the CT acquisition on this date and at this time, and as such, the same value may appear in more than one CT report depending on the interpreting/reporting physicians. COMPARISON: None. FINDINGS: Cervical Spine: Vertebrae: No acute fracture. Multilevel degenerative changes of the cervical spine. Slightly limited evaluation of C6-T1 secondary to photon starvation. Suspected chronic mild wedge deformity of T1. Alignment: Normal spinal alignment. Paraspinal Soft Tissues: No paraspinal hematoma. Lung Apices: No pneumothorax at the lung apices. Lumbar Spine: Vertebrae: No acute fracture. Mild multilevel degenerative changes of the spine. Broad-based disc bulges causing mild narrowing of the anterior spinal canal at L2-L3, L3-L4, and L4-L5 levels. With suspected mild narrowing of the neuroforamina Alignment: Normal spinal alignment. Paraspinal Soft Tissues: No paraspinal hematoma. Other: Multiple scattered low-attenuation foci within the bilateral kidneys some of which are consistent with simple renal cyst others of which are indeterminate and could be further evaluated with nonemergent MR CT renal protocol. Diffuse atherosclerotic changes of the partially visualized abdominal aorta and bilateral iliacs. Extensive sigmoid diverticula without definite acute inflammation. Procedure Note Talisha Mo MD - 08/31/2024 CLINICAL INDICATION: Neck trauma, focal neuro deficit or paresthesia (Age 16-64y) TECHNIQUE: Imaging of the entire cervical, and lumbar spine was performed, usingspiral technique, without contrast administration. Reformatted images inthe coronal and sagittal planes were generated from the axial data set tofacilitate diagnostic accuracy and/or surgical planning. Total DLP (Dose-Length Product): 3123.65 mGy.cm (accession [id number]),3123.65 mGy.cm (accession [id number]). Please note: The reported valuerepresents the total of one or more individual components during the CTacquisition on this date and at this time, and as such, the same value mayappear in more than one CT report depending on the interpreting/reportingphysicians. COMPARISON: None. FINDINGS: Cervical Spine: Vertebrae: No acute fracture. Multilevel degenerative changes of thecervical spine. Slightly limited evaluation of C6-T1 secondary to photonstarvation. Suspected chronic mild wedge deformity of T1. Alignment: Normal spinal alignment. Paraspinal Soft Tissues: No paraspinal hematoma. Lung Apices: No pneumothorax at the lung apices. Lumbar Spine: Vertebrae: No acute fracture. Mild multilevel degenerative changes of thespine. Broad-based disc bulges causing mild narrowing of the anteriorspinal canal at L2-L3, L3-L4, and L4-L5 levels. With suspected mildnarrowing of the neuroforamina Alignment: Normal spinal alignment. Paraspinal Soft Tissues: No paraspinal hematoma. Other: Multiple scattered low-attenuation foci within the bilateralkidneys some of which are consistent with simple renal cyst others ofwhich are indeterminate and could be further evaluated with nonemergent MRCT renal protocol. Diffuse atherosclerotic changes of the partiallyvisualized abdominal aorta and bilateral iliacs. Extensive sigmoiddiverticula without definite acute inflammation. IMPRESSION: No acute fracture or malalignment of the cervical and lumbar spine. CRITICAL RESULT: No. COMMUNICATION: Per this written report. Preliminary report signed by Silas Guidry MD on 08/31/2024 8:32 PM By electronically signing this report, I, the attending physician, attestthat I have personally reviewed the images/data for the aboveexamination(s) and agree with the final edited report. Drafted by Silas Guidry MD on 08/31/2024 8:28 PM Final report signed by Talisha Mo MD on 08/31/2024 10:14 PM us Kim Lares MD IMG CT PROCEDURES Final Resul t * CT Cervical Spine wo IV Contrast (08/31/2024 6:57 PM EDT) Anatomical Region Laterality Modality Spine, C-spine Computed Tomogra phy Impressions 08/31/2024 10:14 PM EDT No acute fracture or malalignment of the cervical and lumbar spine. CRITICAL RESULT: No. COMMUNICATION: Per this written report. Preliminary report signed by Silas Guidry MD on 08/31/2024 8:32 PM By electronically signing this report, I, the attending physician, attest that I have personally reviewed the images/data for the above examination(s) and agree with the final edited report. Drafted by Silas Guidry MD on 08/31/2024 8:28 PM Final report signed by Talisha Mo MD on 08/31/2024 10:14 PM Narrative 08/31/2024 10:14 PM EDT CLINICAL INDICATION: Neck trauma, focal neuro deficit or paresthesia (Age 16-64y) TECHNIQUE: Imaging of the entire cervical, and lumbar spine was performed, using spiral technique, without contrast administration. Reformatted images in the coronal and sagittal planes were generated from the axial data set to facilitate diagnostic accuracy and/or surgical planning. Total DLP (Dose-Length Product): 3123.65 mGy.cm (accession [id number]), 3123.65 mGy.cm (accession [id number]). Please note: The reported value represents the total of one or more individual components during the CT acquisition on this date and at this time, and as such, the same value may appear in more than one CT report depending on the interpreting/reporting physicians. COMPARISON: None. FINDINGS: Cervical Spine: Vertebrae: No acute fracture. Multilevel degenerative changes of the cervical spine. Slightly limited evaluation of C6-T1 secondary to photon starvation. Suspected chronic mild wedge deformity of T1. Alignment: Normal spinal alignment. Paraspinal Soft Tissues: No paraspinal hematoma. Lung Apices: No pneumothorax at the lung apices. Lumbar Spine: Vertebrae: No acute fracture. Mild multilevel degenerative changes of the spine. Broad-based disc bulges causing mild narrowing of the anterior spinal canal at L2-L3, L3-L4, and L4-L5 levels. With suspected mild narrowing of the neuroforamina Alignment: Normal spinal alignment. Paraspinal Soft Tissues: No paraspinal hematoma. Other: Multiple scattered low-attenuation foci within the bilateral kidneys some of which are consistent with simple renal cyst others of which are indeterminate and could be further evaluated with nonemergent MR CT renal protocol. Diffuse atherosclerotic changes of the partially visualized abdominal aorta and bilateral iliacs. Extensive sigmoid diverticula without definite acute inflammation. Procedure Note True, Talisha Whittaker MD - 08/31/2024 CLINICAL INDICATION: Neck trauma, focal neuro deficit or paresthesia (Age 16-64y) TECHNIQUE: Imaging of the entire cervical, and lumbar spine was performed, usingspiral technique, without contrast administration. Reformatted images inthe coronal and sagittal planes were generated from the axial data set tofacilitate diagnostic accuracy and/or surgical planning. Total DLP (Dose-Length Product): 3123.65 mGy.cm (accession [id number]),3123.65 mGy.cm (accession [id number]). Please note: The reported valuerepresents the total of one or more individual components during the CTacquisition on this date and at this time, and as such, the same value mayappear in more than one CT report depending on the interpreting/reportingphysicians. COMPARISON: None. FINDINGS: Cervical Spine: Vertebrae: No acute fracture. Multilevel degenerative changes of thecervical spine. Slightly limited evaluation of C6-T1 secondary to photonstarvation. Suspected chronic mild wedge deformity of T1. Alignment: Normal spinal alignment. Paraspinal Soft Tissues: No paraspinal hematoma. Lung Apices: No pneumothorax at the lung apices. Lumbar Spine: Vertebrae: No acute fracture. Mild multilevel degenerative changes of thespine. Broad-based disc bulges causing mild narrowing of the anteriorspinal canal at L2-L3, L3-L4, and L4-L5 levels. With suspected mildnarrowing of the neuroforamina Alignment: Normal spinal alignment. Paraspinal Soft Tissues: No paraspinal hematoma. Other: Multiple scattered low-attenuation foci within the bilateralkidneys some of which are consistent with simple renal cyst others ofwhich are indeterminate and could be further evaluated with nonemergent MRCT renal protocol. Diffuse atherosclerotic changes of the partiallyvisualized abdominal aorta and bilateral iliacs. Extensive sigmoiddiverticula without definite acute inflammation. IMPRESSION: No acute fracture or malalignment of the cervical and lumbar spine. CRITICAL RESULT: No. COMMUNICATION: Per this written report. Preliminary report signed by Silas Guidry MD on 08/31/2024 8:32 PM By electronically signing this report, I, the attending physician, eren I have personally reviewed the images/data for the aboveexamination(s) and agree with the final edited report. Drafted by Silas Guidry MD on 08/31/2024 8:28 PM Final report signed by Talisha Mo MD on 08/31/2024 10:14 PM us Kim Lares MD IMG CT PROCEDURES Final Resul t * ED HIV 1/2 Antibody/Antigen Screen w/Reflex to HIV 1/2 Differentiation (08/31/2024 5:54 PM EDT) [facility] HIV 1 & 2 Antibody/Antigen Screen Non Reactive Non Reactive 08/31/2024 7:08 PM EDT [facility] Comment:Screening for HIV 1 & 2 antibodies, and P24 antigen is NONREACTIVE. No confirmatory testing is required. Blood Venous blood specimen / Unknown Venipuncture / Unknown 08/31/2024 5:54 PM EDT 08/31/2024 6:28 PM EDT Result Arlet Lares MD LAB BLOOD ORDERABLES Final Re sult Performing Organization Address [facility] Co de Phone Number [facility] [address] [place] [address] * Hepatitis C Antibody - ED (08/31/2024 5:54 PM EDT) [facility] Hepatitis C Antibody Negative Negative 08/31/2024 7:15 PM EDT [facility] Blood Venous blood specimen / Unknown Venipuncture / Unknown 08/31/2024 5:54 PM EDT 08/31/2024 6:28 PM EDT us Kim Lares MD LAB BLOOD ORDERABLES Final Re sult Performing Organization Address City/[facility]/ZIP Co de Phone Number [facility] [address] [place] [address] * Lipase (08/31/2024 5:54 PM EDT) Lipase, Plasma 34 19 - 63 U/L 08/31/2024 6:43 PM EDT [facility] Blood Venous blood specimen / Unknown Venipuncture / Unknown 08/31/2024 5:54 PM EDT 08/31/2024 6:16 PM EDT Kim Lares MD LAB BLOOD ORDERABLES Final Re sult [facility] [address] [place] [address] from Last 3 Months Additional Health Concerns Infection Onset Date Last Indicated 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 Yes * Full Code Date Activated Date Inactivated Comments 10/12/2024 10:12 PM 10/18/2024 2:53 PM Question Answer Comments I have reviewed the capacity from the link above and, if needed, have updated to appropriate status: Yes * Full Code Date Activated Date Inactivated Comments 09/01/2024 3:29 AM 09/09/2024 4:32 PM Question Answer Comments I have reviewed the capacity from the link above and, if needed, have updated to appropriate status: Yes * Full Code Date Activated Date Inactivated Comments 11/20/2023 4:54 PM 11/21/2023 4:48 PM Question Answer Comments Patient has decision-making capacity? Yes * Full Code Date Activated Date Inactivated Comments 11/19/2023 9:21 AM 11/20/2023 4:54 PM Question Answer Comments Patient has decision-making capacity? 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
--- OUTSIDE RECORDS SUMMARY | 2024-11-15 14:01 | XMS_ITS | Data Portability ---
Author Organization [employer] [facility] - [facility] Address [address] [place] [address] Assessment No assessment recorded. Plan of Treatment Reminders Order Date Submit Date Provider Last Modified By Organization Details Last Modified Time Details Appointments None record ed. Lab pap, LB 024 05/19/19 24 HARI [facility], [address], [place], [address], 23:41:14 Referral None record ed. Procedures None record ed. Surgeries None record ed. Imaging None record ed. Medication Orders None record ed. Patient TargetsNo targets recorded. Patient InstructionsNo instructions recorded. Reason for Referral None Reported. Results Created Date Observation Date Name Description Value Unit Range Abnormal Flag Note LastModifiedBy Organization Detail LastModifiedTime 05/19/19 24 05/20/2023 IMAGE -GUID ED PAP W/AGE BASED SCR FADI COLS comment This order for age-b ased cervi anika cance r and STI scree amelie follo ws ACOG guide lines (PB 168, 140, FAQ07 1). See indiv idual assay s for perfo rming site locat ion. Not Available [facility] [place] [facility] [address], [place], [address], 05/20/2023 23:41:14 05/19/19 24 05/20/2023 IMAGE -GUID ED PAP W/AGE BASED SCR FADI COLS clinical information: normal None given Not Available [facility] [place] [facility] [address], [place], [address], 05/20/2023 23:41:14 05/19/19 24 05/20/2023 IMAGE -GUID ED PAP W/AGE BASED SCR FADI COLS LMP: normal NONE GIVEN Not Available [facility] [place] [facility] [address] [place], [address], 05/20/2023 23:41:14 05/19/19 24 05/20/2023 IMAGE -GUID ED PAP W/AGE BASED SCR FADI COLS prev. Pap: normal NONE GIVEN Not Available [facility] [address] [place], [address], 05/20/2023 23:41:14 05/19/19 24 05/20/2023 IMAGE -GUID ED PAP W/AGE BASED SCR FADI COLS prev. BX: normal NONE GIVEN Not Available [facility] [address] [place], [address], 05/20/2023 23:41:14 05/19/19 24 05/20/2023 IMAGE -GUID ED PAP W/AGE BASED SCR FADI COLS source: normal Vagin a, Cervi x, Endoc ervix Not Available [facility] [address] [place], [address], 05/20/2023 23:41:14 05/19/19 24 05/20/2023 IMAGE -GUID ED PAP W/AGE BASED SCR FADI COLS statement of adequacy: normal Satis facto ry for evalu ation . Endoc ervic al/tr ansfo rmati on zone compo nent prese nt. Not Available [facility] [address] [place], [address], 05/20/2023 23:41:14 05/19/19 24 05/20/2023 IMAGE -GUID ED PAP W/AGE BASED SCR FADI COLS interpretati on/result: normal Cytol ogy Resul ts: Negat elissa for intra epith elial lesio n or malig aleena . Not Available [facility] [place] [facility] [address] [place], [address], 05/20/2023 23:41:14 05/19/19 24 05/20/2023 IMAGE -GUID ED PAP W/AGE BASED SCR FADI COLS comment: normal This Pap test has been evalu ated with compu ter elizabeth [employer] . Not Available [facility] [place] [facility] [address] [place], [address], 05/20/2023 23:41:14 05/19/19 24 05/20/2023 IMAGE -GUID ED PAP W/AGE BASED SCR FADI COLS cytotechnolo gist: normal MTE, CT( CP) CT Scree amelie Locat ion: [facility] [place] [address] [facility] [place] [address] Not Available [facility] [place] [facility] [address] [place], [address], 05/20/2023 23:41:14 05/19/19 24 05/20/2023 IMAGE -GUID ED PAP W/AGE BASED SCR FADI COLS comment EXPLA NATOR Y NOTE: The Pap is a scree amelie test for cervi anika cance r. It is not a diagn ostic test and is subje ct to false negat elissa and false posit elissa resul ts. It is most relia ble when a satis facto ry sampl e, regul chris obtai latricia, is submi tted with relev ant clini anika findi ngs and histo ry, and when the Pap resul t is evalu ated along with histo scar and curre nt clini anika infor matio n. Not Available [facility] [place] [facility] [address] [place], [address], 05/20/2023 23:41:14 05/19/19 24 05/20/2023 IMAGE -GUID ED PAP W/AGE BASED SCR FADI COLS HPV MRNA E6/E7 Not Detect ed not detect ed normal Metho dolog y: Trans cript ion-M ediat ed Ampli ficat ion This assay detec ts E6/E7 viral messe nger RNA (mRNA ) from 14 high- risk HPV types (16,1 8,31, 33,35 ,39,4 5,51, 52,56 ,58,5 9,66, 68). Cervi anika sourc es are requi red for HPV testi ng. If a vagin al sourc e from a patie nt who has had a total hyste recto my with remov al of cervi x was submi tted, pleas e conta ct the testi ng labor atory for alter nativ e testi ng optio ns. For addit ional infor gill murray e refer to http: //[facility] joseph levy.edmond stdia gn[employer].c om/fa q/FAQ 129v1 (This link if provi ded for infor jaja levy/ educa syed albarado purpo ses only. ) Not Available [facility] [place] [facility] [address] [facility], [place], [address], 05/20/2023 23:41:14 Result Notes None recorded. Problems Name Problem SNOMED Code Status Onset Date Resolution Date Notes Provider Name and Address Organization Details Recorded Time Malignant neoplasm of lung [id number] Active 024 Bud Shaffer, [address], [address], [facility] 4 13:19:41 Problem Notes None recorded. Procedures Surgical History Date Name Laterality Status Provider Name and Address Organization Details Recorded Time 4 Date of Last Pap Smear completed [facility] [employer] 05/22/2023 08:29:39 Tubal Ligation completed [facility] [employer] 05/19/2023 10:41:55 Imaging Results None recorded. Procedure Notes None recorded. Medical Equipment None Reported. Allergies Allergen ID Allergen Name Allergen Category Reaction Reaction Severity Criticality Documentation Date Start Date Code Code System Note Provider Name and Address Organization Details Recorded Time 77485 Keflex medicatio n Not available Not available Not available 10/16/202374297 7 RxNorm ELMER barksdale [facility] 12:54:16 96540 lisinopri l medicatio n Not available Not available Not available 10/16/2023 22813 RxNorm ELMER RICO [employer] 12:54:23 40744 meloxicam medicatio n Not available Not available Not available 10/16/2023 20809 RxNorm ELMER barksdale [employer] 12:54:50 Medications Name Sig Start Date Stop Date Status Note LastModified by Organization Details LastModified Time celecoxib 200 mg capsule TAKE 2 CAPSULES 1 TIME EACH DAY WITH FOOD active Not Available Not Available No t Available fluoxetine 40 mg capsule TAKE 1 CAPSULE 1 TIME EACH DAY active Not Available Not Available No t Available atorvastati n 40 mg tablet TAKE 1 TABLET 1 TIME EACH DAY active Not Available Not Available No t Available metformin 500 mg tablet TAKE 2 TABLETS 2 TIMES EACH DAY WITH MEALS 05/19 completed Not Available Not Available Not Available terconazole 0.4 % vaginal cream INSERT 1 APPLICATO RFUL INTO THE VAGINA 1 TIME EACH DAY AT BEDTIME FOR 7 DAYS active Not Available Not Available No t Available promethazin e-DM 6.25 mg-15 mg/5 mL oral syrup TAKE 5 ML BY MOUTH EVERY 6 HOURS NEEDED FOR COUGH 05/19 completed Not Available Not Available Not Available BD Alcohol Swabs USE TO TEST BLOOD SUGAR 3 TIMES EACH DAY active Not Available Not Available No t Available nystatin 100,000 unit/mL oral suspension SWISH 5 ML (1 TEASPOONF UL) FOR 5 TO 10 SECONDS, THEN SWALLOW, 4 TIMES EACH DAY FOR 10 DAYS. active Not Available Not Available No t Available carvedilol 6.25 mg tablet TAKE 1 TABLET 2 TIMES EACH DAY active Not Available Not Available No t Available prednisone 10 mg tablet TAKE 6 TABLETS BY MOUTH ON DAY 1, 5 ON DAY 2, 4 ON DAY 3, 3 ON DAY 4, 2 ON DAY 5 AND 1 ON DAY 6 active Not Available Not Available No t Available gabapentin 600 mg tablet TAKE 1 TABLET 3 TIMES EACH DAY active Not Available Not Available No t Available doxycycline hyclate 100 mg capsule TAKE 1 CAPSULE 1 TIME EACH DAY FOR 10 DAYS active Not Available Not Available No t Available ipratropium 0.5 mg-albutero l 3 mg (2.5 mg base)/3 mL nebulizatio n soln INHALE CONTENTS OF 1 VIAL USING A NEBULIZER 4 TIMES EACH DAY active Not Available Not Available No t Available cetirizine 10 mg tablet TAKE 1 TABLET 1 TIME EACH DAY active Not Available Not Available No t Available azithromyci n 250 mg tablet TAKE 2 TABLETS BY MOUTH ON DAY 1, AND THEN TAKE 1 TABLET BY MOUTH ONCE A DAY ON DAY 2 THROUGH DAY 5 (TAKE DIRECTED FOR 5 DAYS) TOO SOON TO REFILL LEVOFLOXA ASTON active Not Available Not Available No t Available benzonatate 200 mg capsule TAKE 1 CAPSULE BY MOUTH THREE TIMES DAILY active Not Available Not Available No t Available ondansetron HCl 8 mg tablet TAKE 1 TABLET EVERY 8 HOURS NEEDED active Not Available Not Available No t Available FreeStyle Lancets 28 gauge USE TO TEST BLOOD SUGAR 3 TIMES EACH DAY active Not Available Not Available No t Available ondansetron HCl 4 mg tablet TAKE 1 TABLET EVERY 6 HOURS NEEDED active Not Available Not Available No t Available Accu-Chek Softclix Lancets USE TO TEST BLOOD SUGAR 3 TIMES EACH DAY active Not Available Not Available No t Available metronidazo le 500 mg tablet TAKE 1 TABLET BY MOUTH THREE TIMES DAILY FOR 5 DAYS active Not Available Not Available No t Available amlodipine 5 mg tablet TAKE 1 TABLET 1 TIME EACH DAY active Not Available Not Available No t Available aspirin 81 mg tablet,rodney yed release TAKE 1 TABLET 1 TIME EACH DAY active Not Available Not Available No t Available lidocaine-p rilocaine 2.5 %-2.5 % topical cream APPLY AT PORT SITE NEEDED active Not Available Not Available No t Available oxycodone-a cetaminophe n 5 mg-325 mg tablet TAKE 1 TABLET EVERY 4 HOURS NEEDED FOR MODERATE PAIN active Not Available Not Available No t Available amoxicillin 875 mg tablet TAKE 1 TABLET BY MOUTH TWICE DAILY FOR 10 DAYS 05/19 completed Not Available Not Available Not Available benzonatate 100 mg capsule TAKE 1 CAPSULE BY MOUTH THREE TIMES DAILY NEEDED active Not Available Not Available No t Available bisacodyl 10 mg rectal suppository INSERT 1 SUPPOSITO RY INTO THE RECTUM 1 HOUR BEFORE THE ARRIVAL TIME FOR THE PROCEDURE . 05/19 completed Not Available Not Available Not Available pantoprazol e 40 mg tablet,rodney yed release TAKE 1 TABLET 1 TIME EACH DAY active Not Available Not Available No t Available erythromyci n 5 mg/gram (0.5 %) eye ointment APPLY A 1 CENTIMETE R STRIP OF OINTMENT ONTO THE RIGHT EYELID 3 TIMES EACH DAY 05/19 completed Not Available Not Available Not Available dexamethaso ne 4 mg tablet TAKE 2 TABLETS 1 TIME EACH DAY ON DAYS 2, 3, AND 4 OF EACH CHEMOTHER APY CYCLE. active Not Available Not Available No t Available Gentle Laxative (bisacodyl) 5 mg tablet,rodney yed release TAKE 2 TABLETS AT 2 PM ON 05/25/2022 AND AGAIN AT 2 PM ON 05/26/2022. active Not Available Not Available No t Available promethazin e 25 mg tablet TAKE 1 TABLET EVERY 12 HOURS NEEDED active Not Available Not Available No t Available nicotine 21 mg/24 hr daily transdermal patch APPLY 1 PATCH ONTO THE SKIN 1 TIME EACH DAY DIRECTED. REMOVE BEFORE APPLYING NEXT PATCH. active Not Available Not Available No t Available lidocaine HCl 2 % mucosal solution MIX WITH 1-1-1 RATIO WITH MAALOX AND BENADRYL FOR SORE SWALLOWIN G FROM RADIATION active Not Available Not Available No t Available triamterene 37.5 mg-hydrochl orothiazide 25 mg [...] TIME EACH DAY AT BEDTIME FOR COUGH active Not Available Not Available No t Available levofloxaci n 500 mg tablet TAKE 1 TABLET 1 TIME EACH DAY FOR 7 DAYS active Not Available Not Available No t Available estradiol 0.01% (0.1 mg/gram) vaginal cream PLACE 1 GRAM INTO THE VAGINA 3 TIMES EACH WEEK AT BEDTIME active Not Available Not Available No t Available methylpredn isolone 4 mg tablets in a dose pack TAKE BY MOUTH DIRECTED ON INSIDE OF PACKAGE active Not Available Not Available No t Available ondansetron 4 mg disintegrat ing tablet PLACE 1 OR 2 TABLETS UNDER THE TONGUE AND ALLOW TO DISSOLVE IF NEEDED FOR NAUSEA DURING PREP ON 05/25/2022 OR 05/26/2022. active Not Available Not Available No t Available fluticasone propionate 50 mcg/actuati on nasal spray,suspe nsion SPRAY 1 TIME IN EACH NOSTRIL 1 TIME EACH DAY active Not Available Not Available No t Available metformin ER 500 mg tablet,exte nded release 24 hr TAKE 2 TABLETS 2 TIMES EACH DAY active Not Available Not Available No t Available diazepam 5 mg tablet TAKE 1 TABLET 30 MINUTES BEFORE PROCEDURE active Not Available Not Available No t Available amoxicillin 875 mg-noreen weinstein clavulanate 125 mg tablet TAKE 1 TABLET EVERY 12 HOURS FOR 5 DAYS active Not Available Not Available No t Available buspirone 15 mg tablet TAKE 1 TABLET 2 TIMES EACH DAY active Not Available Not Available No t Available Fiber-Lax 625 mg tablet TAKE 2 [...] Not Available Not Available No t Available FreeStyle Lite Meter kit USE TO TEST BLOOD SUGAR DIRECTED active Not Available Not Available No t Available FreeStyle Lite Strips USE TO TEST BLOOD SUGAR 3 TIMES EACH DAY AND NEEDED active Not Available Not Available No t Available ClearLax 17 gram/dose oral powder MIX 7 CAPFULS IN 16 OUNCES OF CLEAR/WHI TE GATORADE AND DRINK AT 12 PM ON 05/25/2022 AND AGAIN ON 05/26/2022. active Not Available Not Available No t Available Mucus Relief ER 600 mg tablet, extended release TAKE 1 TABLET EVERY 12 HOURS NEEDED active Not Available Not Available No t Available Combivent Respimat 20 mcg-100 mcg/actuati on solution for inhalation INHALE 1 PUFF EVERY 6 HOURS NEEDED active Not Available Not Available No t Available Jardiance 10 mg tablet TAKE 1 TABLET 1 TIME EACH DAY active Not Available Not Available No t Available Jardiance 25 mg tablet TAKE 1 TABLET 1 TIME EACH DAY active Not Available Not Available No t Available Stiolto Respimat 2.5 mcg-2.5 mcg/actuati on solution for inhalation INHALE 2 PUFFS 1 TIME EACH DAY active Not Available Not Available No t Available Dexcom G6 Sensor device USE TO MONITOR BLOOD SUGAR DIRECTED. REPLACE EVERY 10 DAYS active Not Available Not Available No t Available Dexcom G6 Transmitter device USE TO MONITOR BLOOD SUGAR DIRECTED. REPLACE EVERY 90 DAYS active Not Available Not Available No t Available Vitals Date Recorded Body height Body mass index (BMI) Body weight Heart rate Oxygen saturation Oxygen saturation in Arterial blood by Pulse oximetry Systolic blood pressure Diastolic blood pressure Provider Name and Address Organization Details Last Updated DateTime 167.64 cm 32.5 kg/m2 37844.5 g 77 /min 99 % 99 % 114 mm[Hg] 74 mm[Hg] JERMAN WELL[employer] 4 10:46:23 Date Recorded Body height Body mass index (BMI) Body weight Systolic blood pressure Diastolic blood pressure Provider Name and Address Organization Details Last Updated DateTime 10/16/2023 167.64 cm 35.2 kg/m2 48470.42 g 106 mm[Hg] 68 mm[Hg] ELMER RICO [email or web address] 12:58:44 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 Question Answer Notes LastModified by Organizat ion Details LastModified Time Tobacco Smoking Status Current Some Day Smoker ELMER [email or web address]. 10/16/2023 12:55:50 Do You Have An Advance Directive? No [email or web address] Information not available 05/19/2023 Is Your Home Air Conditioned? Yes [email or web address] Information not available 05/19/2023 Are You Blind Or Do You Have Difficulty Seeing? No [email or web address] Information not available 05/19/2023 What Is Your Level Of Caffeine Consumption? Moderate [email or web address] Information not available 05/19/2023 What Type Of Centrifugal Machine Tender Do You Use? Relative Information not available 05/19/2023 Are You Deaf Or Do You Have Serious Difficulty Hearing? No Information not available 05/19/2023 What Type Of Diet Are You Following? REGULAR [email or web address] Information not available 05/19/2023 Have There Been Any Changes To Your Family Or Social Situation? No [email or web address] Information no t available 05/19/2023 Are There Any Guns Present In Your Home? No [email or web address] Information not available 05/19/2023 Which Of Your Hands Is Dominant? Right [email or web address] Information not available 05/19/2023 What Is Your Home Situation? Other [email or web address] Information not available 05/19/2023 Do You Have A Medical Power Of Emergency Room Specialist? No [email or web address] Information not available 05/19/2023 What Was The Date Of Your Most Recent Tobacco Screening? 10/16/2023 Information not available 10/16/2023 What Is Your Current Pack Years? [email or web address] ears [email or web address] Information not available 05/19/2023 Do You Have Any Pets? No [email or web address] Information not available 05/19/2023 What Is Your Relationship Status? Information not available 05/19/2023 Have You Repeated Any Grades? No [email or web address] Information not available 05/19/2023 Do You Use Your Seat Belt Or Car Seat Routinely? Yes [email or web address] Information not available 05/19/2023 Are You Sexually Active? Yes Information not available 05/19/2023 Do You Have Any Siblings? Yes Information not available 05/19/2023 Do You Have Smoke And Carbon Monoxide Detectors In Your Home? Yes [email or web address] Information not available 05/19/2023 At What Age Did You Start Smoking Tobacco? 15 [email or web address] Information not available 05/19/2023 Are You Passively Exposed To Smoke? No [email or web address] Information no t available 05/19/2023 Are There Any Smokers In Your House? Yes [email or web address] Information not available 05/19/2023 How Much Tobacco Do You Smoke? 2 PPW Information not available 10/16/2023 Do You Use Sunscreen Routinely? No [email or web address] Information not available 05/19/2023 How Many Years Have You Smoked Tobacco? 47 [email or web address] Information not available 05/19/2023 Do You Have Difficulty Walking Or Climbing Stairs? No [email or web address] Information not available 05/19/2023 Sex: Female Functional Status Question Answer Note LastModified by Organizat ion Details LastModified Time Do you use any illicit or recreational drugs? No [email or web address] Information not available 05/19/2023 Do you or have you ever used any other forms of tobacco or nicotine? No Information not available 10/16/2023 Are you currently employed? No Information not available 05/19/2023 Are you able to walk? YESWOREST [email or web address] Information not available 05/19/2023 Do you have difficulty doing errands alone? No Information not available 05/19/2023 Are you able to care for yourself? Yes [email or web address] Information n ot available 05/19/2023 Do you have difficulty dressing or bathing? No [email or web address] Information not available 05/19/2023 Mental Status Question Answer Note LastModified by Organization D etails LastModified Time Do you have difficulty concentrating, remembering or making decisions? No [email or web address] Information no t available 05/19/2023 Family History Nothing Reported. Medical History Condition Response Anxiety Disorder Y Cancer Y Diabetes Y Asthma Y Hypertension Y Gynecological History Statement/Question Response Abnormal Pap N STIs/STDs N HPV Vaccine N Current Control Method Tubal Ligat ion Most Recent Mammogram Age at First Child 15 If Post Menopausal, Age at Menopause 50 Sexually Active? Y Menses Monthly N Date of Last Pap Smear 05/20/2023 LMP Approximate Obstetrics History GPAL:G 3 P 3 0 0 3 Type Value Full Term 3 Living 3 Total 3 Immunizations Vaccine Type Date Status Note Provider Nam e and Address Organization Details Recorded Time Influenza, split virus, quadrivalent, preservative 7 completed [employer] [facility] 10/16/2023 12:53:53 Influenza, split virus, quadrivalent, preservative 1 completed [employer] [facility] 10/16/2023 12:53:53 Influenza, split virus, quadrivalent, preservative 4 completed [employer] [facility] 10/16/2023 12:53:53 zoster recombinant 9 completed [employer] 10/16/2023 12:53:53 Influenza, high-dose, quadrivalent, PF 0 completed [employer] 10/16/2023 12:53:53 COVID-19, mRNA, LNP-S, PF, 100 mcg/0.5mL dose or 50 mcg/0.25mL dose 1 completed ELMER JACKY null, [facility] 10/16/2023 12:53:53 COVID-19, mRNA, LNP-S, PF, 100 mcg/0.5mL dose or 50 mcg/0.25mL dose 1 completed ELMER JACKY null, [facility] 10/16/2023 12:53:53 COVID-19, mRNA, LNP-S, PF, 100 mcg/0.5mL dose or 50 mcg/0.25mL dose 2 completed ELMER JACKY null, [facility] 10/16/2023 12:53:53 COVID-19, mRNA, LNP-S, PF, 100 mcg/0.5mL dose or 50 mcg/0.25mL dose 1 completed ELMER JACKY null, [facility] 10/16/2023 12:53:53 COVID-19, mRNA, LNP-S, bivalent, PF, 50 mcg/0.5 mL or 25mcg/0.25 mL dose 3 completed ELMER JACKY null, [facility] 10/16/2023 12:53:53 pneumococcal polysaccharide PPV23 9 completed ELMER JACKY null, [facility] [employer] 10/16/2023 12:53:53 Tdap 8 completed ELMER JACKY null, [facility] [employer] 10/16/2023 12:53:53 Influenza, split virus, trivalent, preservative 4 completed ELMER JACKY null, [facility] 10/16/2023 12:53:53 Influenza, split virus, trivalent, PF 4 completed ELMER JACKY null, [facility] [employer] 10/16/2023 12:53:53 Hep A, adult 9 completed ELMER JACKY null, [facility] 10/16/2023 12:53:53 Hep A, adult 8 completed ELMER barksdale, [facility] [employer] 10/16/2023 12:53:53 Influenza, split virus, quadrivalent, PF 8 completed ELMER barksdale, [facility] [employer] 10/16/2023 12:53:53 Influenza, split virus, quadrivalent, PF 9 completed ELMER barksdale, [facility] [employer] 10/16/2023 12:53:53 Past Encounters Encounter ID Performer Location Encounter Start Date Encounter Closed Date Diagnosis/Indication Diagnosis SNOMED-CT Code Diagnosis ICD10 Code Diagnosis Note [id number] Bud Deena, [address] [id number] 05/19/2023 09:48:38 05/19/2023 12:57:51 Gynecologic examination [id number] Z01.943 [id number] Bud Shaffer [address] [place] [address] 10/16/2023 12:32:37 10/16/2023 13:30:46 Urethral caruncle 1796439 N36.2 continue neosporin. Pt has appt with urologist next week, have him to evalute if still bothersome Health Concerns Section Related Observation LastModified by Organization Detai ls LastModified Time None Recorded Concern Status LastModified by Organization Details LastModified Time None Recorded Advance Directives Directive N: Payers Insurance Date Sequence Insurance Name Policy Number Policy Hutson Covered Member ID Hutson Member ID Guarantor Name 10/16/2023 1 [place] [id number] Teresa Rivera [id number] Tersea Rivera Notes Date Note Type Note Provider Name and Address Organization Details Recorded Time 05/19/2023 text/html Pt originally scheduled with c/o vaginal bleeding. Pt today says bleeding with lifting heavy objects and used to have bleeding with IC. States her Urologist (Dr. Meredith) told her she had little polyps in her urethra that pop and bleed. Pt states she has already had US and endo bx done last year and all was negative. Encouraged pt if she didn't have all of that done and she has vaginal bleeding, we need to obtain them. Pt assured me all has been done. Pt states all she needs is a pap. Has been getting paps every year except last year, did not know about getting every 5 yrs, states was never told. She opts to get this done now and do no more. Denies ever having any abnormal pap's in her life. still very much desires sexual activity, she hates it. Just does not want it and does not want any kind of medication to help with sexual desire. Denies pain and agrees to have IC with her once per month, but states no bleeding or pain with IC. Does not want anything done except pap today. Says she is up to date on her mammogram and colorectal screening. Bud Shaffer, [address] [place], [phone], [facility] 05/19/2023 12:44:19 10/16/2023 text/html Patient here today with complaints of having a sore on her urethra. She noticed it about a week ago she states that it got big and she popped it states that she had some yellow pus that come out of it but she states she cannot really get it to heal she has been using Neosporin ointment on it. She is currently in chemo treatment she completed 40 rounds of radiation for her lung cancer Bud Shaffer, [address] [place], [address], [facility] 10/16/2023 13:23:25 OBGyn Episode No OBEpisode recorded.
--- OUTSIDE RECORDS SUMMARY | 2024-11-15 14:01 | XMS_ITS ---
Author Organization [facility] Address [address] 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 Treatment Medications Current Day (Day 1 , Cycle 3 - Planned for 11/29/2024) Next Day (Day 2, Cycle 3 - Planned for 11/30/2024) Lsunmafyilnk-Efnlncvnfesoo-f qjs (Tecentriq Hybreza) 1875-65163 MG-UT/15ML solutionCARBOplatin (Paraplatin)CARBOplatin (Paraplatin) IVPB (by AUC: GOG-COCKCROFT GAULT)Etoposide (Toposar)etoposide (Vepesid) IVPB Atezolizumab-Hyaluronidase- tqjs (Tecentriq Hybreza) 1875-08566 MG-UT/15ML injection solution 1,875 mgCARBOplatin (Paraplatin) 620 mg in sodium chloride 0.9 % 250 mL IVPBetoposide (Toposar) 220 mg in sodium chloride 0.9 % 500 mL IVPB etoposide (Toposar) 220 mg in sodium chloride 0.9 % 500 mL IVPB Past Treatment and Therapy Plans No past plan information found. Current Radiation Episodes * SBRT: Midline BrainOverview* First Treatment Date Latest Treatment Date Treatment Site Technique Goal Episode Provider 10/24/2024 11/07/2024 Midline Brain SBRT Palliative * Linked Problems Brain cancer Treatment Courses* Course C1 10/24/2024 - 11/07/2024 Treatment Period Fraction Dose Fractions Total Dose Plans Planned [id number] 10/24/2024 - 11/07/2024 300 cGy 3 ,000 cGy Reference Points Delivered Brain WBRT 10/24/2024 - 11/07/2024 3,000 cGy Lifetime Dose Tracking * Chemical Lifetime Dose Automatic Entry Manual Entr y Fluoro Time 16.8 minutes 0.3 minutes 16.5 minutes Air Kerma 67.2 mGy 19 mGy 48.2 mGy Air Kerma Area Product 8.08 Gy-cm2 0 Gy-cm2 8.08 Gy-cm2 Air Kerma Area Product 148.49 Gym 148.49 Gym 0 Gym Resolved Problems Problem Noted Date Diagnosed Date Resolved Date Neutropenic fever 10/12/2024 10/18/2024 Sepsis without acute organ dysfunction 10/12/2024 10/18/2024 Subdural hematoma 10/12/2024 10/18/2024 Subarachnoid hemorrhage 10/12/2024 0607/2024 Atrial flutter with rapid ve ntricular response 11/19/2023 10/18/2024 Abdominal bloating 04/03/2022
--- OUTSIDE RECORDS SUMMARY | 2024-11-15 14:01 | XMS_ITS | Encounter Summary ---
Author Organization Healthcare Address [address] [place] [address] Care Team Providers Care Application Support Technician Name Role Phone Laurie Gutierrez MD Primary Care Provider [phone] Joshua Martínez MD Unavailable Encounter Details Date Type Department Care Team (Latest Contact Info) Description 11/10/2024 Travel 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 Tobacco Use Types Packs/Day [...] drink first t laurie in the morning (EYE-HOUSEKEEPING AIDE) to steady your nerves or to get rid of a hangover? 0 10/27/2024 CAGE Questionnaire Score 0 025 Utilities Answer Date Recorded In the past 12 months has [employer], gas, oil, or water company threatened to shut off services in your home? No 10/26/2024 Comments No Sex and Gender Information Value Date Recorded Sex Assigned at Not on file Legal Sex Female 8:32 PM EDT Gender Identity Not on file Sexual Orientation Not on file documented as of this encounter Plan of Treatment Upcoming Encounters Date Type Department Care Team ([facility] Contact Info) Description 11/29/2024 10:30 AM EDT Clinical Support [facility] [address] [facility], [address] [place] [address] 11/29/2024 11:00 AM EDT Office Visit [facility] [address] [facility], 2nd [place] [address] Satnam Colvin MD [address] [facility] [address] [facility] [address] [place] [address] 11/29/2024 12:30 PM EDT Appointment [facility] [address] [place] [address] 11/30/2024 1:30 PM EDT Appointment [facility] [address] [place] [address] 12/01/2024 2:00 PM EDT Appointment [facility] [address] [place] [address] 12/06/2024 11:40 AM EDT Appointment [facility] Radiation [id number] [place] [address] Haven Blum, MASONRY SUPERVISOR [address] [facility] [address] [place] [address] 01/19/2025 9:30 AM EDT Appointment [facility] S Radiology [address], [address]st [place] [address] 01/19/2025 10:45 AM EDT Office Visit [place] [facility] [address], [address]st [place] [address] Abhilash Bangura MD [address] [place] [address] 03/08/2025 1:00 PM EDT Office Visit [facility] [place] [address] [facility]. 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 Panic 10/26/2024 10/31/2024 Assessment Noted Time PHQ-9 Depression Total Score: 0 09/01/19 25 3:26 PM EDT A fall risk assessment has been complete d for the patient 11/10/2024 2:43 PM EDT A Body Mass Index follow-up plan has been documented for the patient 11/08/2024 5:14 PM EDT documented as of this encounter Care Teams Application Support Technician Relationship Specialty Start Date End Date Laurie Gutierrez MD [address] [place] [address] PCP - General 12/09/23 Joshua Martínez MD [address] [place] [address] [address] [place] [address] Consulting Physician Radiation Oncology 09/19/24 documented as of this encounter
--- OUTSIDE RECORDS SUMMARY | 2024-11-15 14:01 | XMS_ITS | Encounter Summary ---
Author Organization Healthcare Address [address] [place] [address] Care Team Providers Care Ironing Worker Name Role Phone Laurie Gutierrez MD Primary Care Provider [phone] Reason for Visit * Reason Onset Date Comments HCN Clinical Concern/Question 08/15/2024 Encounter Details Date Type Department Care Team (Late st Contact Info) Description 08/15/2024 Telephone [facility] [place] [address] [place] [address] Teresita Oconnell MD [address] [place] [address] HCN Clinical Concern/Question 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 Tobacco Use Types Packs/Day Years [...] drink first t laurie in the morning (EYE-FORM SETTER STEEL FORMS) to steady your nerves or to get rid of a hangover? 0 11/19/2023 CAGE Questionnaire Score 0 024 Utilities Answer Date Recorded In the past 12 months has th e electric, gas, oil, or water company threatened to shut off services in your home? No 09/06/2024 Comments Unknown Sex and Gender Information Value Date Recorded Sex Assigned at Not on file Legal Sex Female 8:32 PM EDT Gender Identity Not on file Sexual Orientation Not on file documented as of this encounter Functional Status * Over the past 2 weeks, how often have you been bothered by any of the following problems? Question Answer Date of Assessment Author Little interest or pleasure in doing things Not at all 08/31/2024 3:26 PM EDT Keren Dotson Feeling down, depressed, or hopeless Not at all 08/31/2024 3:26 PM JULIAT Keren Dotson Patient Health Questionnaire -2 Score 0 08/31/2024 3:26 PM Keren Louise * Question Answer Date of Assessment Author Trouble falling or staying a sleep, or sleeping too much Not at all 08/31/2024 3:26 PM Keren Louise Feeling tired or having alexandra le energy Not at all 08/31/2024 3:26 PM Keren Louise Poor appetite or overeating Not at all 08/31/2024 3: 26 PM Keren Louise Feeling bad about yourself - or that you are a failure or have let yourself or your family down Not at all 08/31/2024 3:26 PM Keren Louise Trouble concentrating on thi ngs, such as reading the newspaper or watching television Not at all 08/31/2024 3:26 PM Keren Louise Moving or speaking so slowly that other people could have noticed? Or the opposite - being so fidgety or restless that you have been moving around a lot more than usual. Not at all 08/31/2024 3:26 PM Keren Louise Thoughts that you would be b satsih off or hurting yourself in some way Not at all 08/31/2024 3:26 PM EDT Keren Dotson Patient Health Questionnaire -9 Score 0 08/31/2024 3:26 PM EDT Keren Dotson * Calculated C-SSRS Risk Score (Lifetime/Recent) Answer Date of Assessment Author No Risk Indicated 09/08/2024 8:30 AM EDT Nery Nix, RN * If you checked off any problems on this questionnaire so far, Question Answer Date of Assessment Author How difficult have these problems made it for you to do your work, take care of things at home, or get along with other people? Not difficult at all 08/31/2024 3:26 PM EDT Keren Dotson * Question Answer Date of Assessment Author 1. Wish to be (Past 1 Month) No 025 8:30 AM EDT Nery Nix, JOSE MARTIN 2. Non-Specific Active Suici radha Thoughts (Past 1 Month) No 09/08/2024 8:30 AM EDT Nery Nix, RN 6. Suicidal Behavior (Lifetime) No 8:30 AM EDT Nery Nix, RN documented as of this encounter Miscellaneous Notes * Telephone Encounter - Ashly Gerard - 08/15/2024 2:08 PM EDT Patients PCPs office is faxing over note from Thursday. * Telephone Encounter - Ashly Gerard - 08/15/2024 12:36 PM EDT LVM with patients PCP office for them to call me back. * Telephone Encounter - Candelaria Snyder - 08/15/2024 8:40 AM EDT Clinical Concern/Question Reason for Call: Kourtney patient is requesting a call from a nurse. On , when she woke up herneck, left arm, left hand and left leg were swollen. 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 Best contact number: [phone] (home) Optimal time of day to reach caller: ANYTIME Additional comments/information from caller: None Note: Please do not reply to this message. Follow-up communication and further actions as a result of this message need to be communicated with the patient directly, if the patient is not active onMyChart. If the patient is active on MyChart, they will receive notification of the communication/outcome via MyChart. documented in this encounter Plan of Treatment Upcoming Encounters Date Type Department Care Team ([facility] st Contact Info) Description 11/29/2024 10:30 AM EDT Clinical Support [facility] [address] [facility], 2nd [place] [address] 11/29/2024 11:00 AM EDT Office Visit [facility] [address] [facility], 2nd [place] [address] Satnam Colvin MD [address] [facility] [address] [facility] [address] [place] [address] 11/29/2024 12:30 PM EDT Appointment [facility] 1 [address] [place] [address] 11/30/2024 1:30 PM EDT Appointment [facility] 1 [address] [place] [address] 12/01/2024 2:00 PM EDT Appointment [facility] 1 [address] [place] [address] 12/06/2024 11:40 AM EDT Appointment [facility] Radiation [address] [facility]. [address] [place] [address] Haven Blum, PUMP TECHNICIAN [address] [facility] [address] [place] [address] 01/19/2025 9:30 AM EDT Appointment [facility] S Radiology [address], 1st [place] [address] 01/19/2025 10:45 AM EDT [facility] Visit [place] [facility] [address], 1st [place] [address] Abhilash Bangura MD [address] [place] [address] 03/08/2025 1:00 PM EDT Office Visit [facility] [place] [address] [place] [address] Teresita Oconnell MD [address] [place] [address] documented as of this encounter Visit Diagnoses Not on filedocumented in this encounter Additional Health Concerns Assessment Noted Time A fall risk assessment has been complete d for the patient 01/27/2024 11:18 AM EDT A Body Mass Index follow-up plan has been documented for the patient 01/27/2024 12:19 PM EDT documented as of this encounter Care Teams Ironing Worker Relationship Specialty Start Date End Date Laurie Gutierrez MD [address] [place] [address] PCP - General 12/09/23 documented as of this encounter
--- OUTSIDE RECORDS SUMMARY | 2024-11-15 14:01 | XMS_ITS | Encounter Summary ---
Author Organization Healthcare Address [address] [place] [address] Care Team Providers Care Binding Stitcher Name Role Phone Laurie Gutierrez MD Primary Care Provider [phone] Joshua Martínez MD Unavailable Encounter Details Date Type Department Care Team (Latest Contact Info) Description 11/14/2024 Travel 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 Tobacco Use Types Packs/Day [...] drink first t laurie in the morning (EYE-MOBILE HEALTH VEHICLE OPERATOR) to steady your nerves or to get rid of a hangover? 0 10/27/2024 CAGE Questionnaire Score 0 025 Utilities Answer Date Recorded In the past 12 months has [employer], gas, oil, or water company threatened to shut off services in your home? No 10/26/2024 Comments No Sex and Gender Information Value Date Recorded Sex Assigned at Not on file Legal Sex Female 8:32 PM EDT Gender Identity Not on file Sexual Orientation Not on file documented as of this encounter Plan of Treatment Upcoming Encounters Date Type Department Care Team ([facility] Contact Info) Description 11/29/2024 10:30 AM EDT Clinical Support Pav [facility] Res[facility] [address] [facility], [address]nd [place] [address] 11/29/2024 11:00 AM EDT Office Visit [facility] Respiratory [address] [facility], 2nd [place] [address] Satnam Colvin MD [address] [facility] Nuria Degroot [facility] [address] [place] [address] 11/29/2024 12:30 PM EDT Appointment [facility] 1 [address] [place] [address] 11/30/2024 1:30 PM EDT Appointment [facility] 1 [address] [place] [address] 12/01/2024 2:00 PM EDT Appointment [facility] 1 [address] [place] [address] 12/06/2024 11:40 AM EDT Appointment [facility] Radiation [address] [place] [address] Haven Blum, QUALITY ASSURANCE CONSULTANT [address] [facility] [address] [place] [address] 01/19/2025 9:30 AM EDT Appointment [facility] Radiology [address], 1st [place] [address] 01/19/2025 10:45 AM EDT Office Visit [place] [facility] [address], [address]st [place] [address] Abhilash Bangura MD [address] [place] [address] 03/08/2025 1:00 PM EDT Office Visit [facility] [place] [address] [facility]. 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, DESILVERIZER Panic 10/26/2024 10/31/2024 Assessment Noted Time PHQ-9 Depression Total Score: 0 09/01/19 25 3:26 PM EDT A fall risk assessment has been complete d for the patient 11/10/2024 2:43 PM EDT A Body Mass Index follow-up plan has been documented for the patient 11/08/2024 5:14 PM EDT documented as of this encounter Care Teams Binding Stitcher Relationship Specialty Start Date End Date Laurie Gutierrez MD [address] [place] [address] PCP - General 12/09/23 Joshua Martínez MD [address] [place] [address] [address] [place] [address] Consulting Physician Radiation Oncology 09/19/24 documented as of this encounter
--- OUTSIDE RECORDS SUMMARY | 2024-11-15 14:01 | XMS_ITS ---
Author Organization [facility] Address [address] [place] [address] Care Team Providers Care Sane Nurse Name Role Phone Laurie Gutierrze MD Primary Care Provider [phone] Joshua Martínez MD Unavailable Transitional Care Management Status:Closed (Closed) Start date:10/19/2024 Enrollment date:10/19/2024 Enrollment reason:Identified using hospital discharge data End date:11/01/2024 Close reason:Patient Readmitted Overview This episode type is for outpatient care managers enrolling patients in the [facility] Transitional Care Management program. Continued Care and Services Coordination
--- OUTSIDE RECORDS SUMMARY | 2024-11-15 14:01 | XMS_ITS | Encounter Summary ---
Author Organization [facility] ([place] [place], [place], [place]) Address [address] [place] [address] Care Team Providers Care Associate Dean Of Women Name Role Phone Laurie Gutierrez MD Primary Care Provider Cecilio Barfield MD Unavailable [phone] Sriram Lobato MD Unavailable [phone] Encounter Details Date Type Department Care Team (Late st Contact Info) Description 01/12/2024 Telephone [facility] [address] [place] [address] Cecilio Barfield MD [address] [place] [address] 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 Tobacco Use Types Packs/Day Years Used Date Smoking Tobacco: Every Day Passive Smoke Exposure: Current Smokeless Tobacco: Never Alcohol Use Standard Drinks/Week Comments Never 0 (1 standard drink = 0.6 oz pur e alcohol) Family and Community Support Answer Gregor e Recorded Help with Day to Day Activities Not on file 05/26/2023 Feeling Lonely or Isolated Not on file 05/26 Educational Attainment Answer Date Tima rded Speak language other than Botswanan at home Not on file 05/26/2023 Want [...] on filedocumented in this encounter Care Teams Associate Dean Of Women Relationship Specialty Start Date End Date Laurie Gutierrez MD [address] [place] [address] PCP - General Internal Medicine 04/03/22 Cecilio Barfield MD [address] [address] Radiation Oncologist Radiation Oncology 08/28/23 Sriram Lobato MD [address] [place] [address] [place] [address] Referring Physician General Internal Medicine 11/24/23 documented as of this encounter
--- OUTSIDE RECORDS SUMMARY | 2024-11-15 14:02 | XMS_ITS | Encounter Summary ---
Author Organization Healthcare Address [address] [place] [address] Care Team Providers Care Deputy Felony Clerk Name Role Phone Laurie Gutierrez MD Primary Care Provider Joshua Martínez MD Unavailable Jasmina Smith LPN Unavailable Unavailable Encounter Details Date Type Department Care Team (Late st Contact Info) Description 06/10/2024 Orders Only External Location [address] [place] [address] Provider, External 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 Tobacco Use Types Packs/Day Years Used Date Smoking Tobacco: Former Cigarettes 1.5 48.4 1 976 - 10/17/2023 Smokeless Tobacco: Never Alcohol Use Standard Drinks/Week Comments No 0 (1 standard drink = 0.6 oz pur e alcohol) PHQ-2 Answer Date Recorded Patient Health Questionnaire-2 Score 0 01/27/2024 Hunger Vital Sign Answer Date Recorded Within the past 12 months, y ou worried that your food would run out before you got the money to buy more. Never true 11/20/19 24 Within the past 12 months, t he food you bought just didn't last and you didn't have money to get more. Never true 11/20/2023 PRAPARE - Transportation Answer Date Re corded In the past 12 months, has l ack of transportation kept you from medical appointments or from getting medications? No 09/2023 In the past 12 months, has l ack of transportation kept you from meetings, work, or from getting things needed for daily living? No 11/20/2023 Housing Stability Vital Sign Answer Gregor e [...] a long term (including now)? No 11/20/2023 CAGE ASSESSMENT Answer Date Recorded Cage unable [...] first t laurie in the morning (EYE-AIRCRAFT POWERPLANT REPAIRER) to steady your nerves or to get rid of a hangover? 0 11/19/2023 CAGE Questionnaire Score 0 024 Utilities Answer Date Recorded In the past 12 months has th e electric, gas, oil, or water company threatened to shut off services in your home? No 11/20/2023 Comments Unknown Sex and Gender Information Value [...] [facility] [address] [facility], 2nd [place] [address] 11/29/2024 11:00 AM EDT Office Visit [facility] [address] [facility], [address]nd [place] [address] Satnam Colvin MD [address] [facility] Nuria Degroot [facility] [address] [place] [address] 11/29/2024 12:30 PM EDT Appointment [facility] 1 [address] [place] [address] 11/30/2024 1:30 PM EDT Appointment [facility] 1 [address] [place] [address] 12/01/2024 2:00 PM EDT Appointment [facility] 1 [address] [place] [address] 12/06/2024 11:40 AM EDT Appointment [facility] [address] [facility]. [address] [place] [address] Haven Blum, SNUFF DRIER [address] [facility] [address] [place] [address] 01/19/2025 9:30 AM EDT Appointment [facility] [address], 1st [place] [address] 01/19/2025 10:45 AM EDT Office Visit [facility] [address], [address]st [place] [address] Abhilash Bangura MD [address] [place] [address] 03/08/2025 1:00 PM EDT Office Visit [facility] [place] [address] 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, CHIEF PSYCHOLOGIST Panic 10/26/2024 10/31/2024 Assessment Noted Time A fall risk assessment has been complete d for the patient 01/27/2024 11:18 AM EDT A Body Mass Index follow-up plan has been documented for the patient 01/27/2024 12:19 PM EDT documented as of this encounter Care Teams Deputy Felony Clerk Relationship Specialty Start Date End Date Laurie Gutierrez MD [address] [place] [address] PCP - General 12/09/23 Joshua Martínez MD [address] [place] [address] [address] [place] [address] Consulting Physician Radiation Oncology 09/19/24 Jasmina Smith LPN VALUE-[place] [address] TCM Nurse 10/19/24 11/01/24 documented as of this encounter
--- OUTSIDE RECORDS SUMMARY | 2024-11-15 14:02 | XMS_ITS | Encounter Summary ---
Author Organization [facility] Address [address] [place] [address] Care Team Providers Care Cooler Service Supervisor Name Role Phone Laurie Gutierrez MD Primary Care Provider Joshua Martínez MD Unavailable Reason for Referral * Imaging (Routine) - Pending Review Specialty Diagnoses / Procedures Referred By Contac t Referred To Contact Radiology Diagnoses 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CMS/HCC) Procedures MR Head w and wo IV Contrast Abhilash Bangura MD [address] [facility] [place] [address] Phone: tel: fax: Referral ID Status Reason Start Date Expiration Date V isits Requested Visits Authorized [id number] Pending Review 09/22/2024 03/24/2026 1 1 Encounter Details Date Type Department Care Team (Late st Contact Info) Description 09/22/2024 Orders Only [place] [facility] [address], 1st [place] [address] Abhilash Bangura MD [address] [facility] [address] [place] [address] 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CMS/HCC) (Primary [...] drink first t laurie in the morning (EYE-SIMULATION ANALYST) to steady your nerves or to get rid of a hangover? 0 11/19/2023 CAGE Questionnaire Score 0 024 Utilities Answer Date Recorded In the past 12 months has zoidu, gas, oil, or water [employer] threatened to shut off services in your home? No 09/06/2024 Comments No Sex and Gender Information Value Date Recorded Sex Assigned at Not on file Legal Sex Female 8:32 PM EDT Gender Identity Not on file Sexual Orientation Not on file documented as of this encounter Plan of Treatment Upcoming Encounters Date Type Department Care Team ([facility] Contact Info) Description 11/29/2024 10:30 AM EDT Clinical Support Pav [facility]ck & Respiratory 800 [facility], 2nd [place] [address] 11/29/2024 11:00 AM EDT Office Visit Pav [facility] Head[facility] Neck & Respiratory [address] [facility], 2nd [place] [address] Satnam Colvin MD [address] [facility] Nuria Degroot [facility] [address] [place] [address] 11/29/2024 12:30 PM EDT Appointment [facility] 1 [address] [place] [address] 11/30/2024 1:30 PM EDT Appointment [facility] 1 [address] [place] [address] 12/01/2024 2:00 PM EDT Appointment [facility] 1 [address] [place] [address] 12/06/2024 11:40 AM EDT Appointment [facility] CC Radiation [address] [facility]. [id number] [place] [address] Haven Blum, CORPORATE BUYER [address] [facility] [address] [place] [address] 01/19/2025 9:30 AM EDT Appointment P[facility] S Radiology [address], 1st [place] [address] 01/19/2025 10:45 AM EDT Office Visit [place] [facility] [address], 1st [place] [address] Abhilash Bangura MD [address] [place] [address] 03/08/2025 1:00 PM EDT Office Visit [facility] [place] [facility] [address] [place] [address] Teresita Oconnell MD [address] [place] [address] Scheduled Orders Name Type Priority Associated Diagnoses Orde r Schedule MR Head w and wo IV Contrast Imaging Routine 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CMS/HCC) Expected: 01/19/2025 (Approximate), Expires: 03/25/2026 documented as of this encounter Visit Diagnoses [...] documented as of this encounter Care Teams Cooler Service Supervisor Relationship Specialty Start Date End Date Laurie Gutierrez MD [address] [place] [address] PCP - General 12/09/23 Joshua Martínez MD [address] [place] [phone] Consulting Physician Radiation Oncology 09/19/24 documented as of this encounter
--- OUTSIDE RECORDS SUMMARY | 2024-11-15 14:02 | XMS_ITS | Encounter Summary ---
Author Organization [facility] Address [address] [place] [address] Care Team Providers Care Store Operations Manager Name Role Phone Laurie Gutierrez MD Primary Care Provider [phone] Joshua Martínez MD Unavailable Encounter Details Date Type Department Care Team (Latest Contact Info) Description 10/04/2024 Travel 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 Tobacco Use Types Packs/Day [...] any time in the past 12 m [facility], were you homeless or living [...] drink first t laurie in the morning (EYE-SOILS ANALYST) to steady your nerves or to [...] Upcoming Encounters Date Type Department Care Team ([facility] st Contact Info) Description 11/29/2024 10:30 AM EDT Clinical Support Pav CC Head, Neck & Respiratory 800 [facility], 2nd [place] [address] 11/29/2024 11:00 AM EDT Office Visit Pav [facility] Head, Neck & Respiratory 800 [facility], 2nd [place] [address] Satnam Colvin MD 800 [facility] [address] [place] [address] 11/29/2024 12:30 PM EDT Appointment [facility] 1 [address] [place] [address] 11/30/2024 1:30 PM EDT Appointment [facility] 1 [address] [place] [address] 12/01/2024 2:00 PM EDT Appointment [facility] 1 [address] [place] [address] 12/06/2024 11:40 AM EDT Appointment P[facility] CC Radiation 800 [facility]. [id number] [place] [address] Haven Blum, BILLING CUSTOMER SERVICE REPRESENTATIVE 800 [facility] [address] [place] [address] 01/19/2025 9:30 AM EDT Appointment P[facility] S Radiology [address], 1st [place] [address] 01/19/2025 10:45 AM EDT Office Visit [place] [facility] [address], 1st [place] [address] Abhilash Bangura MD [address] [place] [address] 03/08/2025 1:00 PM EDT Office Visit [facility] [place] [facility] [address] [place] [address] Teresita Oconnell MD [address] [place] [address] documented as of this encounter [...] documented as of this encounter Care Teams Store Operations Manager Relationship Specialty Start Date End Date Laurie Gutierrez MD [address] [place] [address] PCP - General 12/09/23 Joshua aMrtínez MD [address] [place] [address] Consulting Physician Radiation Oncology 09/19/24 documented as of this encounter
--- OUTSIDE RECORDS SUMMARY | 2024-11-15 14:02 | XMS_ITS | Encounter Summary ---
Author Organization [employer] ([place], [place], [place], [place]) Address [address] [place] [address] Care Team Providers Care Coal Digger Name Role Phone Laurie Gutierrez MD Primary Care Provider [phone] Cecilio Barfield MD Unavailable [phone] Sriram Lobato MD Unavailable [phone] Reason for Referral * Mammography (Routine) - Closed Specialty Diagnoses / Procedures Referred By Mackenzie t Referred To Contact Diagnoses Other screening mammogram Procedures MM digital mammo screen with oswaldo bilateral Yamilet Coleman PA-C [address] [place] [address] Phone: tel: fax: Referral ID Status Reason Start Date Expiration Date Visits Re quested Visits Authorized [id number] Closed 12/31/2023 12/30/2024 1 1 Encounter Details Date Type Department Care Team (Late st Contact Info) Description 12/31/2023 Outside Orders [facility] Central Scheduling 1 [place] [address] Yamilet Coleman PA-C [address] [place] [address] Other screening mammogram (Primary Dx) 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 Tobacco Use Types [...] Date Tima rded Speak language other than Monegasque at home Not on file 05/26/2023 Want [...] documented as of this encounter Results * MM digital mammo screen with oswaldo bilateral (01/15/2024 10:18 AM EDT) Anatomical Region [...] the next mammogram. At our facility, a confederated goshute marker is positioned over a visible skin [...] family history of breast cancer. COMPARISON STUDY: [facility] 2021 and 2022 from [facility] FINDINGS: Craniocaudal and mediolateral oblique images of [...] Coleman PA-C IMG MAMMOGRAPHY ORDERABLES Final Result documented in this encounter Visit Diagnoses Diagnosis Other screening mammogram- Primary Other screening mammogram documented in this encounter Care Teams Coal Digger Relationship Specialty Start Date End Date Laurie Gutierrez MD [address] [place] [address] PCP - General Internal Medicine 04/03/22 Cecilio Barfield MD [address] [place] [address] Radiation Oncologist Radiation Oncology 08/28/23 Sriram Lobato MD [address] [facility] [address] [place] [address] Referring Physician General Internal Medicine 11/24/23 documented as of this encounter
--- OUTSIDE RECORDS SUMMARY | 2024-11-15 14:02 | XMS_ITS | Encounter Summary ---
Author Organization [facility] Address [address] [place] [address] Care Team Providers Care Roentgenologist Name Role Phone Laurie Gutierrez MD Primary Care Provider Joshua Martínez MD Unavailable Encounter Details Date Type Department Care Team (Latest Contact Info) Description 09/22/2024 Travel 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 Tobacco Use Types Packs/Day [...] drink first t laurie in the morning (EYE-DYE PADDER OPERATOR) to steady your nerves or to [...] Pav [facility] Head[facility] Neck & Respiratory [address] [facility], 2nd [place] [address] 11/29/2024 11:00 AM EDT Office Visit Pav [facility] Head[facility] Neck & Respiratory [address] [facility], 2nd [place] [address] Satnam Colvin MD [address] [facility] [address] [place] [address] 11/29/2024 12:30 PM EDT Appointment [facility] 1 [address] [place] [address] 11/30/2024 1:30 PM EDT Appointment [facility] 1 [address] [place] [address] 12/01/2024 2:00 PM EDT Appointment [facility] 1 [address] [place] [address] 12/06/2024 11:40 AM EDT Appointment [facility] CC Radiation [address] [facility]. [address] [place] [address] Haven Blum, SECOND HELPER 800 [facility] [address] [place] [address] 01/19/2025 9:30 AM EDT Appointment P[facility] S Radiology [address], 1st [place] [address] 01/19/2025 10:45 AM EDT Office Visit [place] [facility] [address], 1st [place] [address] Abhilash Bangura MD [address] [place] [address] 03/08/2025 1:00 PM EDT Office Visit [facility] [place] [facility] [address] [place] [address] Teresita Oconnell MD [address] [place] [address] documented as of this encounter [...] documented as of this encounter Care Teams Roentgenologist Relationship Specialty Start Date End Date Laurie Gutierrez MD [address] [place] [address] PCP - General 12/09/23 Joshua Martínez MD [address] [place] [address] Consulting Physician Radiation Oncology 09/19/24 documented as of this encounter
--- OUTSIDE RECORDS SUMMARY | 2024-11-15 14:02 | XMS_ITS | Encounter Summary ---
Author Organization [facility] Address [address] [place] [address] Care Team Providers Care Dental Instrument Maker Name Role Phone Laurie Gutierrez MD Primary Care Provider [phone] Joshua Martínez MD Unavailable Encounter Details Date Type Department Care Team (Latest Contact Info) Description 10/06/2024 Travel 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 Tobacco Use Types Packs/Day [...] drink first t laurie in the morning (EYE-EXPORT FREIGHT MANAGER) to steady your nerves or to [...] 800 [facility], 2nd [place] [address] 11/29/2024 11:00 AM EDT Office Visit Pav CC Head, Neck & Respiratory 800 [facility], [address]nd [place] [address] Satnam Colvin MD 800 [facility] [address] [place] [address] 11/29/2024 12:30 PM EDT Appointment [facility] 1 [address] [place] [address] 11/30/2024 1:30 PM EDT Appointment [facility] 1 [address] [place] [address] 12/01/2024 2:00 PM EDT Appointment [facility] 1 [address] [place] [address] 12/06/2024 11:40 AM EDT Appointment P[facility] CC Radiation 800 [facility]. KU[address]E [place] [address] Haven Blum, CHASSIS WIRER 800 [facility] [address] [place] [address] 01/19/2025 9:30 AM EDT Appointment [facility] S Radiology [address], [address]st [place] [address] 01/19/2025 10:45 AM EDT Office Visit [place] [facility] [address], 1st [place] [address] Abhilash Bangura MD [address] [place] [address] 03/08/2025 1:00 PM EDT Office Visit [facility] [place] [facility] [address] [place] [address] Teresita Oconnell MD [address] [place] [address] documented as of this encounter [...] documented as of this encounter Care Teams Dental Instrument Maker Relationship Specialty Start Date End Date Laurie Gutierrez MD [address] [place] [address] PCP - General 12/09/23 Joshua Martínez MD [address] [place] [address] Consulting Physician Radiation Oncology 09/19/24 documented as of this encounter
--- OUTSIDE RECORDS SUMMARY | 2024-11-15 14:02 | XMS_ITS | Encounter Summary ---
Author Organization [facility] Address [address] [place] [address] Care Team Providers Care Paper Pattern Folder Name Role Phone Laurie Gutierrez MD Primary Care Provider [phone] Joshua Martínez MD Unavailable Reason for Visit * Reason Comments Resource Navigation Encounter Details Date Type Department Care Team (Late st Contact Info) Description 10/04/2024 Social Work Psych Oncology [address] [place] [address] Mariah Rowley 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 Tobacco Use Types [...] drink first t laurie in the morning (EYE-HOUSE PARENT) to steady your nerves or to get [...] * Progress Notes - Mariah Rowley - 10/04/2024 1:52 PM EDT Encounter Type: In Person Visit Disease Status: Established Patient Clinic Location: [facility] Services Provided: Gift / Gas Card Gift Card Type: [facility] Gift Card Amount: 100 Intervention Level: 2 Units (1 unit = 15 minutes): 4 Narrative: UPPER MARKER met with pt in clinic to follow up on request from RN. Per RN, pt identified financial hardships. UPPER MARKER met with pt in exam room and introduced self and non urgent nature of visit. Pt explained that she is in need of assistance for food and gas money to get back and forth for her tx. Pt voiced wish to stay at [facility] but stated she has been unable to find a caregiver. UPPER MARKER encouraged pt to reach out to UPPER MARKER in the future should pt locate a caregiver to stay at with pt. UPPER MARKER offered to givept assistance for fuel and gas to offset costs associated with getting back and forth with treatment. Pt expressed appreciation for the assistance. UPPER MARKER then assisted pt with getting over to infusion and committed to coming back during pt's infusion. UPPER MARKER later met with pt once in a chair and provided pt with 100.00 card. UPPER MARKER informed pt that card already activated and ready to use. Pt voiced understanding and appreciation for the assistance. No further needs identified. UPPER MARKER encouraged to reach out for any future questions, comments, or concerns. UPPER MARKER to remain available for any ongoing needs orsupport. NAVEED Ashley, UPPER MARKER [facility] documented in this encounter Plan of Treatment Upcoming Encounters Date Type Department Care Team (Late st Contact Info) Description 11/29/2024 10:30 AM EDT Clinical Support Pav CC Head, Neck & Respiratory 800 [facility], 2nd [place] [address] 11/29/2024 11:00 AM EDT Office Visit Pav CC Head, Neck & Respiratory [address] [facility], 2nd [place] [address] Satnam Colvin MD 800 [facility] [address] [place] [address] 11/29/2024 12:30 PM EDT Appointment [facility] 1 [address] [place] [address] 11/30/2024 1:30 PM EDT Appointment [facility] 1 [address] [place] [address] 12/01/2024 2:00 PM EDT Appointment [facility] 1 [address] [place] [address] 12/06/2024 11:40 AM EDT Appointment [facility] CC Radiation 800 [facility]. [id number] [place] [address] Haven Blum, MARKET RESEARCH ANALYST 800 [facility] [address] [place] [address] 01/19/2025 9:30 AM EDT Appointment PAV S Radiology [address], 1st [place] [address] 01/19/2025 10:45 AM EDT Office Visit [place] [facility] [address], [address]st [place] [address] Abhilash Bangura MD [address] [place] [address] 03/08/2025 1:00 PM EDT Office Visit [facility] [place] W[facility] [address] [place] [address] Teresita Oconnell MD [address] [place] [address] documented as of this encounter [...] documented as of this encounter Care Teams Paper Pattern Folder Relationship Specialty Start Date End Date Laurie Gutierrez MD [address] [place] [address] PCP - General 12/09/23 Joshua Martínez MD 800 [facility] [address] [place] [address] Consulting Physician Radiation Oncology 09/19/24 documented as of this encounter
--- OUTSIDE RECORDS SUMMARY | 2024-11-15 14:02 | XMS_ITS | Encounter Summary ---
Author Organization [facility] Address [address] [place] [address] Care Team Providers Care Safe Deposit Attendant Name Role Phone Laurie Gutierrez MD Primary Care Provider [phone] Johsua Martínez MD Unavailable Encounter Details Date Type Department Care Team (Latest Contact Info) Description 10/05/2024 Travel 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 Tobacco Use Types Packs/Day [...] any time in the past 12 m [facility], were you homeless or living in a alf (including now)? No 09/06/2024 CAGE ASSESSMENT Answer [...] drink first t laurie in the morning (EYE-FRAUD REPRESENTATIVE) to steady your nerves or to [...] Upcoming Encounters Date Type Department Care Team ([facility] st Contact Info) Description 11/29/2024 10:30 AM EDT Clinical Support Pav CC Head, Neck & Respiratory 800 [facility], 2nd [place] [address] 11/29/2024 11:00 AM EDT Office Visit Pav CC Head, Neck & Respiratory [address] [facility], 2nd [place] [address] Satnam Colvin MD 800 [facility] [address] [place] [address] 11/29/2024 12:30 PM EDT Appointment [facility] 1 [address] [place] [address] 11/30/2024 1:30 PM EDT Appointment [facility] 1 [address] [place] [address] 12/01/2024 2:00 PM EDT Appointment [facility] 1 [address] [place] [address] 12/06/2024 11:40 AM EDT Appointment P[facility] CC Radiation [address] [facility]. [id number] [place] [address] Haven Blum, EDGERMAN 800 [facility] [address] [place] [address] 01/19/2025 9:30 AM EDT Appointment P[facility] S Radiology [address], [address]st [place] [address] 01/19/2025 10:45 AM EDT Office Visit [place] [facility] [address], 1st [place] [address] Abhilash Bangura MD [address] [place] [address] 03/08/2025 1:00 PM EDT Office Visit [facility] [place] [facility] [address] [place] [address] Teresita Oconnell MD [address] [place] [address] documented as of this [...] documented as of this encounter Care Teams Safe Deposit Attendant Relationship Specialty Start Date End Date Laurie Gutierrez MD [address] [place] [address] PCP - General 12/09/23 Joshua Martínez MD [address] [place] [address] Consulting Physician Radiation Oncology 09/19/24 documented as of this encounter
--- OUTSIDE RECORDS SUMMARY | 2024-11-15 14:02 | XMS_ITS | Encounter Summary ---
Author Organization [facility] Address [address] [place] [address] Care Team Providers Care Chief Hospital Administrator Name Role Phone Laurie Gutierrez MD Primary Care Provider [phone] Joshua Martínez MD Unavailable Encounter Details Date Type Department Care Team (Latest Contact Info) Description 10/03/2024 Travel 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 Tobacco Use Types Packs/Day [...] the past 12 m [facility], were you homeless or living [...] drink first t laurie in the morning (EYE-JELLY FILTER TENDER) to steady your nerves or to [...] Upcoming Encounters Date Type Department Care Team ([facility] st Contact Info) Description 11/29/2024 10:30 AM EDT Clinical Support Pav CC Head, Neck & Respiratory 800 [facility], 2nd [place] [address] 11/29/2024 11:00 AM EDT Office Visit Pav CC Head, Neck & Respiratory 800 [facility], 2nd [place] [address] Satnam Colvin MD 800 [facility] [address] [place] [address] 11/29/2024 12:30 PM EDT Appointment [facility] 1 [address] [place] [address] 11/30/2024 1:30 PM EDT Appointment [facility] 1 [address] [place] [address] 12/01/2024 2:00 PM EDT Appointment [facility] 1 [address] [place] [address] 12/06/2024 11:40 AM EDT Appointment [facility] CC Radiation 800 [facility]. [id number] [place] [address] Haven Blum, GLUTEN SETTLING TENDER 800 [facility] [address] [place] [address] 01/19/2025 9:30 AM EDT Appointment [facility] S Radiology [address]st [place] [address] 01/19/2025 10:45 AM EDT Office Visit [place] [facility] [address], 1st [place] [address] Abhilash Bangura MD [address] [place] [address] 03/08/2025 1:00 PM EDT Office Visit [facility] [place] [facility] [address] [place] [address] Teresita Oconnell MD [address] [place] [address] documented as of this encounter [...] documented as of this encounter Care Teams Chief Hospital Administrator Relationship Specialty Start Date End Date Laurie Gutierrez MD [address] [place] [address] PCP - General 12/09/23 Joshua Martínez MD [address] [place] [address] Consulting Physician Radiation Oncology 09/19/24 documented as of this encounter
--- OUTSIDE RECORDS SUMMARY | 2024-11-15 14:03 | XMS_ITS | Encounter Summary ---
Author Organization Healthcare Address [address] [place] [address] Care Team Providers Care Customer Acquisition Specialist Name Role Phone Laurie Gutierrez MD Primary Care Provider [phone] Joshua Martínez MD Unavailable Jasmina Smith LPN Unavailable Unavailable Encounter Details Date Type Department Care Team (Latest Contact Info) Description 10/25/2024 Travel 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 Tobacco Use Types Packs/Day [...] drink first t laurie in the morning (EYE-OFFICE SWEEPER) to steady your nerves or to get [...] Risk Indicated 10/25/2024 10:50 AM EDT Ashu Pierre RN * Question Answer Date of Assessment Author 1. Wish to be (Past 1 Month) No 025 10:50 AM EDT Ashu Pierre, RN 2. Non-Specific Active Suici radha Thoughts (Past 1 Month) No 10/25/2024 10:50 AM EDT Sweta Pierre RN 6. Suicidal Behavior (Lifetime) No 10:50 AM EDT Ashu Pierre, RN documented as of this encounter Plan of Treatment Upcoming Encounters Date Type Department Care Team (Late st Contact Info) Description 11/29/2024 10:30 AM EDT Clinical Support [facility] Respiratory [address] [facility], 2nd [place] [address] 11/29/2024 11:00 AM EDT Office Visit [facility]ck [facility] Respiratory [address] [facility], 2nd [place] [address] Satnam Colvin MD [address] [facility] Nuria Degroot [facility] [address] [place] [address] 11/29/2024 12:30 PM EDT Appointment [facility] 1 [address] [place] [address] 11/30/2024 1:30 PM EDT Appointment [facility] 1 [address] [place] [address] 12/01/2024 2:00 PM EDT Appointment [facility] 1 [address] [place] [address] 12/06/2024 11:40 AM EDT Appointment [facility] CC Radiation [address] [facility]. [id number] [place] [address] Haven Blum, SLUG PRESS OPERATOR [address] [facility] [address] [place] [address] 01/19/2025 9:30 AM EDT Appointment PAV S Radiology [address], 1st [place] [address] 01/19/2025 10:45 AM EDT Office Visit [place] [facility] [address], 1st [place] [address] Abhilash Bangura MD [address] [place] [address] 03/08/2025 1:00 PM EDT Office Visit [facility] [place] [facility] [address] [place] [address] Teresita Oconnell MD [address] [place] [address] documented as of this encounter [...] documented as of this encounter Care Teams Customer Acquisition Specialist Relationship Specialty Start Date End Date Laurie Gutierrez MD [address] [place], [place] [id number] PCP - General 12/09/23 Joshua Martínez MD [address] [place], [place] [id number] [place] [address] Consulting Physician Radiation Oncology 09/19/24 Jasmina Smith LPN VALUE-[place] [address] TCM Nurse 10/19/24 11/01/24 documented as of this encounter
--- OUTSIDE RECORDS SUMMARY | 2024-11-15 14:03 | XMS_ITS | Encounter Summary ---
Author Organization Healthcare Address [address] [place] [address] Care Team Providers Care Vehicle Calibration Engineer Name Role Phone Laurie Gutierrez MD Primary Care Provider [phone] Joshua Martínez MD Unavailable Jasmina Smith LPN Unavailable Unavailable Encounter Details Date Type Department Care Team (Late st Contact Info) Description 10/25/2024 Orders Only [facility] CC Radiation [id number] [place] [address] Radiation Oncology, Physician, [address] [employer], [place] [id number] 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 Tobacco Use Types Packs/Day Years [...] any time in the past 12 m [facility], were you homeless or living in a [...] drink first t laurie in the morning (EYE-VENDING MACHINE MECHANIC) to steady your nerves or to get [...] & Respiratory 800 [facility], [address]nd [place] [address] 11/29/2024 11:00 AM EDT Office Visit Pav [facility] Head, Neck & Respiratory [address] [facility], [address]nd [place] [address] Satnam Colvin MD [address] [facility] [address] [place] [address] 11/29/2024 12:30 PM EDT Appointment [facility] 1 [address] [place] [address] 11/30/2024 1:30 PM EDT Appointment [facility] 1 [address] [place] [address] 12/01/2024 2:00 PM EDT Appointment [facility] 1 [address] [place] [address] 12/06/2024 11:40 AM EDT Appointment [facility] CC Radiation [address] [facility]. [id number] [place] [address] Haven Blum, TAKE UP SUPERVISOR [address] [facility] [address] [place] [address] 01/19/2025 9:30 AM EDT Appointment PAV S Radiology [address], 1st [place] [address] 01/19/2025 10:45 AM EDT Office Visit [facility] [address], 1st [place] [address] Abhilash Bangura MD [address] [place] [address] 03/08/2025 1:00 PM EDT Office Visit [facility] [place] [facility] [address] [facility] [place] [address] Teresita Oconnell MD [address] [place] [address] documented as of this encounter Procedures Procedure Name Priority Date/Time Associated Diagnosis Comments RAD ONC ARIA SESSION SUMMARY Routine 10/25/2024 2:01 PM EDT documented in this encounter Results * Rad Onc Aria Session Summary (10/25/2024 [...] documented as of this encounter Care Teams Vehicle Calibration Engineer Relationship Specialty Start Date End Date Laurie Gutierrez MD [address] [place] [address] [place] [address] PCP - General 12/09/23 Joshua Martínez MD 800 [facility] [address] [place] [address] Consulting Physician Radiation Oncology 09/19/24 Jasmina Smith LPN VAL[employer] [address] TCM Nurse 10/19/24 11/01/24 documented as of this encounter
--- OUTSIDE RECORDS SUMMARY | 2024-11-15 14:03 | XMS_ITS | Encounter Summary ---
Author Organization [facility] Address [address] [place] [address] Care Team Providers Care High School Biology Teacher Name Role Phone Laurie Gutierrez MD Primary Care Provider [phone] Joshua Martínez MD Unavailable Encounter Details Date Type Department Care Team (Latest Contact Info) Description 09/20/2024 Travel 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 Tobacco Use Types Packs/Day [...] drink first t laurie in the morning (EYE-TEAMSITE DEVELOPER) to steady your nerves or to [...] Upcoming Encounters Date Type Department Care Team ([facility] st Contact Info) Description 11/29/2024 10:30 AM EDT Clinical Support Pav CC Head, Neck & Respiratory 800 [facility], 2nd [place] [address] 11/29/2024 11:00 AM EDT Office Visit Pav [facility] Head, Neck & Respiratory [address] [facility], 2nd [place] [address] Satnam Colvin MD 800 [facility] [address] [place] [address] 11/29/2024 12:30 PM EDT Appointment [facility] 1 [address] [place] [address] 11/30/2024 1:30 PM EDT Appointment [facility] 1 [address] [place] [address] 12/01/2024 2:00 PM EDT Appointment [facility] 1 [address] [place] [address] 12/06/2024 11:40 AM EDT Appointment [facility] CC Radiation 800 [facility]. [id number] [place] [address] Haven Blum, BAG LOADER MACHINE OPERATOR 800 [facility] [address] [place] [address] 01/19/2025 9:30 AM EDT Appointment P[facility] S Radiology [address], [address]st [place] [address] 01/19/2025 10:45 AM EDT Office Visit [place] [facility] [address], 1st [place] [address] Abhilash Bangura MD [address] [place] [address] 03/08/2025 1:00 PM EDT Office Visit [facility] [place] [facility] [address] [place] [address] Teresita Oconnell MD [address] [place] [address] documented as of this encounter [...] documented as of this encounter Care Teams High School Biology Teacher Relationship Specialty Start Date End Date Laurie Gutierrez MD [address] [place] [address] PCP - General 12/09/23 Joshua Martínez MD [address] [place] [address] Consulting Physician Radiation Oncology 09/19/24 documented as of this encounter
--- OUTSIDE RECORDS SUMMARY | 2024-11-15 14:03 | XMS_ITS | Encounter Summary ---
Author Organization Healthcare Address [address] [place] [address] Care Team Providers Care Music Leader Name Role Phone Laurie Gutierrez MD Primary Care Provider [phone] Joshua Martínez MD Unavailable Reason for Visit * Reason Comments Distress Screen Follow-up Encounter Details Date Type Department Care Team (Late st Contact Info) Description 09/20/2024 Social Work Psych Oncology [address] [place] [address] Mariah Rowley 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 Tobacco Use Types [...] any time in the past 12 m [facility], were you homeless or [...] drink first t laurie in the morning (EYE-PLUMBER ASSISTANT) to steady your nerves or to [...] * Progress Notes - Mariah Rowley - 09/20/2024 10:28 AM EDT Encounter Type: Distress Follow Up - In Person Disease Status: Initial Psych Onc Contact Clinic Location: [facility] Disease Type: Thyroid Education Provided: Psych-Onc Services Intervention Level: 2 Units (1 unit = 15 minutes): 1 Narrative: DEVELOPMENT WRITER met with pt, sister, and pt's son in exam room to follow up on pt's DT screen. Pt pleasant and engaging throughout conversation. Pt stated she is doing okay but did express anxiety over her visittoday. Pt stated she was recently released from [facility]. DEVELOPMENT WRITER provided pt with contact information and educated all present on available psych onc services such as lodging, transportation, counselors, dieticians, etc. Pt stated that she has previously stayed at [facility] but is still waiting to figure out her treatment plan. DEVELOPMENT WRITER informed pt that once pt aware of plan that DEVELOPMENT WRITER [facility]. DEVELOPMENT WRITER engaged in general discussions over pt's wellbeing prior to the conclusion ofthe encounter. Pt did not identify any immediate needs but was encouraged by DEVELOPMENT WRITER to reach out in the future should any arise. Pt voiced understanding and appreciation for the assistance. DEVELOPMENT WRITER to remain available for any ongoing needs or support. Mariah Rowley, FILAMENT CUTTER, DEVELOPMENT WRITER [facility] Psych-Oncology Services documented in this encounter Plan of Treatment Upcoming Encounters Date Type Department Care Team (Late st Contact Info) Description 11/29/2024 10:30 AM EDT Clinical Support Pav CC Head, Neck & Respiratory [address] [facility], 2nd [place] [address] 11/29/2024 11:00 AM EDT Office Visit Pav CC Head, Neck & Respiratory [address] [facility], 2nd [place] [address] Satnam Colvin MD [address] [facility] [address] [place] [address] 11/29/2024 12:30 PM EDT Appointment [facility] 1 [address] [place] [address] 11/30/2024 1:30 PM EDT Appointment [facility] 1 [address] [place] [address] 12/01/2024 2:00 PM EDT Appointment [facility] 1 [address] [place] [address] 12/06/2024 11:40 AM EDT Appointment P[facility] CC Radiation [address] [facility]. [id number] [place] [address] Haven Blum, BUILDING CLEANING SUPERVISOR [address] [facility] [address] [place] [address] 01/19/2025 9:30 AM EDT Appointment PAV S Radiology [address], 1st [place] [address] 01/19/2025 10:45 AM EDT Office Visit [place] [facility] [address], 1st [place] [address] Abhilash Bangura MD [address] [place] [address] 03/08/2025 1:00 PM EDT Office Visit [facility] [place] [facility] [address] [place] [address] Teresita Oconnell MD [address] [place] [address] documented as of this encounter [...] documented as of this encounter Care Teams Music Leader Relationship Specialty Start Date End Date Laurie Gutierrez MD [address] [place] [address] PCP - General 12/09/23 Joshua Martínez MD [address] [place], [place] [id number] [place] [address] Consulting Physician Radiation Oncology 09/19/24 documented as of this encounter
--- OUTSIDE RECORDS SUMMARY | 2024-11-15 14:03 | XMS_ITS | Encounter Summary ---
Author Organization [facility] Address [address] [place] [address] Care Team Providers Care E Learning Manager Name Role Phone Laurie Gutierrez MD Primary Care Provider [phone] Joshua Martínez MD Unavailable Encounter Details Date Type Department Care Team (Latest Contact Info) Description 09/26/2024 Travel 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 Tobacco Use Types Packs/Day [...] any time in the past 12 m [facility], were you homeless or living [...] drink first t laurie in the morning (EYE-AGENCY SALES REPRESENTATIVE) to steady your nerves or [...] Upcoming Encounters Date Type Department Care Team ([facility] st Contact Info) Description 11/29/2024 10:30 AM EDT Clinical Support Pav CC Head, Neck & Respiratory [address] [facility], 2nd [place] [address] 11/29/2024 11:00 AM EDT Office Visit Pav CC Head, Neck & Respiratory [address] [facility], [address]nd [place] [address] Satnam Colvin MD [address] [facility] [address] [place] [address] 11/29/2024 12:30 PM EDT Appointment [facility] 1 [address] [place] [address] 11/30/2024 1:30 PM EDT Appointment [facility] 1 [address] [place] [address] 12/01/2024 2:00 PM EDT Appointment [facility] 1 [address] [place] [address] 12/06/2024 11:40 AM EDT Appointment P[facility] CC Radiation [address] [facility]. [id number] [place] [address] Haven Blum, LETTER STAMPING MACHINE OPERATOR 800 [facility] [address] [place] [address] 01/19/2025 9:30 AM EDT Appointment PAV S Radiology [address], [address]st [place] [address] 01/19/2025 10:45 AM EDT Office Visit [place] [facility] [address], 1st [place] [address] Abhilash Bangura MD [address] [place] [address] 03/08/2025 1:00 PM EDT Office Visit [facility] [place] [facility] [address] [place] [address] Teresita Oconnell MD [address] [place] [address] documented as of this encounter [...] documented as of this encounter Care Teams E Learning Manager Relationship Specialty Start Date End Date Laurie Gutierrez MD [address] [place] [address] PCP - General 12/09/23 Joshua Martínez MD [address] [place] [address] Consulting Physician Radiation Oncology 09/19/24 documented as of this encounter
--- OUTSIDE RECORDS SUMMARY | 2024-11-15 14:03 | XMS_ITS | Encounter Summary ---
Author Organization Healthcare Address [address] [place] [address] Care Team Providers Care Coal Trammer Name Role Phone Laurie Gutierrez MD Primary Care Provider [phone] Joshua Martínez MD Unavailable Jasmina Smith LPN Unavailable Unavailable Encounter Details Date Type Department Care Team (Late st Contact Info) Description 10/26/2024 Orders Only [facility] CC Radiation [id number] [place] [address] Radiation Oncology, Physician, [address] [place], [place] [id number] 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 Tobacco Use Types Packs/Day Years [...] in the past [address] [facility], were you homeless or living [...] drink first t laurie in the morning (EYE-CORRECTIVE AND MANUAL ARTS THERAPIST) to steady your nerves or to [...] Month) No 025 9:12 AM EDT Daya Chang RN 2. Non-Specific Active Suici radha Thoughts (Past 1 Month) No 10/26/2024 9:12 AM EDT Daya Chang RN 6. Suicidal Behavior (Lifetime) No 9:12 AM EDT Daya Chang, RN documented as of this encounter Plan of Treatment Upcoming Encounters Date Type Department Care Team ([facility] st Contact Info) Description 11/29/2024 10:30 AM EDT Clinical Support Pav CC Head, Neck & Respiratory 800 [facility], 2nd [place] [address] 11/29/2024 11:00 AM EDT Office Visit Pav CC Head, Neck & Respiratory [address] [facility], 2nd [place] [address] Satnam Colvin MD [address] [facility] [address] [place] [address] 11/29/2024 12:30 PM EDT Appointment [facility] 1 [address] [place] [address] 11/30/2024 1:30 PM EDT Appointment [facility] 1 [address] [place] [address] 12/01/2024 2:00 PM EDT Appointment [facility] 1 [address] [place] [address] 12/06/2024 11:40 AM EDT Appointment PAV CC Radiation [address] [facility]. [id number] [place] [address] Haven Blum, RICE FARMWORKER [address] [facility] [address] [place] [address] 01/19/2025 9:30 AM EDT Appointment PAV S Radiology [address], 1st [place] [address] 01/19/2025 10:45 AM EDT Office Visit [place] [facility] [address], 1st [place] [address] Abhilash Bangura MD [address] [place] [address] 03/08/2025 1:00 PM EDT Office Visit [facility] [place] [facility] [address] [facility]. [address] [place] [address] Teresita Oconnell MD [address] [place] [address] documented as of this encounter Procedures Procedure Name Priority Date/Time Associated Diagnosis Comments RAD ONC ARIA SESSION SUMMARY Routine 10/26/2024 1:15 PM EDT documented in this encounter Results * Rad Onc Aria Session Summary (10/26/2024 [...] documented as of this encounter Care Teams Coal Trammer Relationship Specialty Start Date End Date Laurie Gutierrez MD [address] [place] [address] PCP - General 12/09/23 Joshua Martínez MD [address] [place] [address] Consulting Physician Radiation Oncology 09/19/24 Jasmina Smith LPN VALUE-[place]ED [place] [address] [facility] Nurse 10/19/24 11/01/24 documented as of this encounter
--- OUTSIDE RECORDS SUMMARY | 2024-11-15 14:03 | XMS_ITS | Encounter Summary ---
Author Organization [facility] Address [address] [place] [address] Care Team Providers Care Auricular Detoxification Specialist Name Role Phone Laurie Gutierrez MD Primary Care Provider [phone] Joshua Martínez MD Unavailable Jasmina Smith LPN Unavailable Unavailable Encounter Details Date Type Department Care Team (Latest Contact Info) Description 10/24/2024 Travel 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 Tobacco Use Types Packs/Day [...] drink first t laurie in the morning (EYE-SPA EXPERIENCE COORDINATOR) to steady your nerves or to get [...] Respiratory 800 [facility], 2nd [place] [address] 11/29/2024 11:00 AM EDT Office Visit Pav CC Head, Neck & Respiratory [address] [facility] 2nd [place] [address] Satnam Colvin MD 800 [facility] [address] [place] [address] 11/29/2024 12:30 PM EDT Appointment [facility] 1 [address] [place] [address] 11/30/2024 1:30 PM EDT Appointment [facility] 1 [address] [place] [address] 12/01/2024 2:00 PM EDT Appointment [facility] 1 [address] [place] [address] 12/06/2024 11:40 AM EDT Appointment [facility] CC Radiation [address] [facility]. [id number] [place] [address] Haven Blum, MATERIALS DEVELOPMENT ENGINEER [address] [facility] [address] [place] [address] 01/19/2025 9:30 AM EDT Appointment P[facility] S Radiology [address], [address]st [place] [address] 01/19/2025 10:45 AM EDT Office Visit [place] [facility] [address], 1st [place] [address] Abhilash Bangura MD [address] [place] [address] 03/08/2025 1:00 PM EDT Office Visit [facility] [place] [facility] [address] [place] [address] Teresita Oconnell MD [address] [place] [address] documented as of this encounter [...] documented as of this encounter Care Teams Auricular Detoxification Specialist Relationship Specialty Start Date End Date Laurie Gutierrez MD [address] [place], [place] [phone] PCP - General 12/09/23 Joshua Martínez MD [address] [place] [address] Consulting Physician Radiation Oncology 09/19/24 Jasmina Smith LPN VALUE-BASED [place] [address] TCM Nurse 10/19/24 11/01/24 documented as of this encounter
--- OUTSIDE RECORDS SUMMARY | 2024-11-15 14:03 | XMS_ITS | Encounter Summary ---
Author Organization [facility] Address [address] [place] [address] Care Team Providers Care Hydraulic Governor Assembler Name Role Phone Laruie Gutierrez MD Primary Care Provider [phone] Joshua Martínez MD Unavailable Reason for Referral * Consultation (Routine) - Authorized Specialty Diagnoses / Procedures Referred By Contac t Referred To Contact Endocrinology Diagnoses Type 2 diabetes mellitus with hyperglycemia, without long-term current use of insulin (CMS/HCC) August Arriola DO [address] [place] [address] Phone: tel: fax: Referral ID Status Reason Start Date Expiration Date Visits Requested Visits Authorized [id number] Authorized Specialty Services Required 09/19/2024 03/21/2026 1 1 Encounter Details Date Type Department Care Team (Late st Contact Info) Description 09/19/2024 Orders Only [facility] [address] [place] [address] Haven Peterson DO [address] [place], [place] [id number] Type 2 diabetes mellitus with hyperglycemia, without long-term current use of insulin (CMS/HCC) (Primary Dx) 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 Tobacco Use Types Packs/Day Years Used Date Smoking Tobacco: Former Cigarettes 1.5 48.4 1 786 - 10/17/2023 Smokeless Tobacco: Never Alcohol Use [...] drink first t laurie in the morning (EYE-LABEL DRIER) to steady your nerves or to get rid of a hangover? 0 11/19/2023 CAGE Questionnaire Score 0 024 Utilities Answer Date Recorded In the past 12 months has e [employer], gas, oil, or water [employer] threatened to shut off services in your home? No 09/06/2024 Comments No Sex and Gender Information Value Date Recorded Sex Assigned at Not on file Legal Sex Female 8:32 PM EDT Gender Identity Not on file Sexual Orientation Not on file documented as of this encounter Plan of Treatment Upcoming Encounters Date Type Department Care Team ([facility] st Contact Info) Description 11/29/2024 10:30 AM EDT Clinical Support [facility] [address] [facility], 2nd [place] [address] 11/29/2024 11:00 AM EDT Office Visit [facility] Head[facility] Respiratory [address] [facility], 2nd [place] [address] Satnam Colvin MD 800 [facility] Nuria Degroot [facility] [address] [place] [address] 11/29/2024 12:30 PM EDT Appointment [facility] 1 [address] [place] [address] 11/30/2024 1:30 PM EDT Appointment [facility] 1 [address] [place] [address] 12/01/2024 2:00 PM EDT Appointment [facility] 1 [address] [place] [address] 12/06/2024 11:40 AM EDT Appointment [facility] CC Radiation [id number] [place] [address] Haven Blum, FIELD TRAFFIC INVESTIGATOR [address] [facility] [address] [place] [address] 01/19/2025 9:30 AM EDT Appointment P[facility] S Radiology [address], 1st [place] [address] 01/19/2025 10:45 AM EDT Office Visit [place] [facility] [address], 1st [place] [address] Abhilash Bangura MD [address] [place] [address] 03/08/2025 1:00 PM EDT Office Visit [facility] [place] Wenceslao [address] [place] [address] Teresita Oconnell MD [address] [place] [address] Scheduled Referrals Name Type Priority Associated Diagnoses Order Schedule Ambulatory referral to Endocrinology Outpatient Referral Routine Type 2 diabetes mellitus with hyperglycemia, without long-term current use of insulin (CMS/HCC) Expected: 09/19/2024 (Approximate), Expires: 03/22/2026 documented as of this encounter Visit Diagnoses Diagnosis Type 2 diabetes mellitus with hyperglycemia, without long-term current use of insulin (CMS/HCC)- Primary documented in this encounter Additional Health Concerns Assessment Noted Time PHQ-9 Depression Total Score: 0 09/01/19 25 3:26 PM EDT A fall risk assessment has been complete d for the patient 08/31/2024 3:25 PM EDT A Body Mass Index follow-up plan has been documented for the patient 09/09/2024 12:20 PM EDT documented as of this encounter Care Teams Hydraulic Governor Assembler Relationship Specialty Start Date End Date Laurie Gutierrez MD [address] [place] [address] PCP - General 12/09/23 Joshua Martínez MD [address] [place] [address] Consulting Physician Radiation Oncology 09/19/24 documented as of this encounter
--- OUTSIDE RECORDS SUMMARY | 2024-11-15 14:03 | XMS_ITS | Encounter Summary ---
Author Organization Healthcare Address [address] [place] [address] Care Team Providers Care Globe Changer Name Role Phone Laurie Gutierrez MD Primary Care Provider [phone] Joshua Martínez MD Unavailable Jasmina Smith LPN Unavailable Unavailable Encounter Details Date Type Department Care Team (Late st Contact Info) Description 10/24/2024 Orders Only [facility] CC Radiation [id number] [place] [address] Radiation Oncology, Physician, [facility] [place] [id number] 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 Tobacco Use Types Packs/Day Years [...] drink first t laurie in the morning (EYE-DATA LEAD) to steady your nerves or to get rid of a hangover? 0 11/19/2023 CAGE Questionnaire Score 0 024 Utilities Answer Date Recorded In the past 12 months has [facility] electric, gas, oil, or water company threatened to shut off services in your home? No 10/14/2024 Comments No Sex and Gender Information Value Date Recorded Sex Assigned at Not on file Legal Sex Female 8:32 PM EDT Gender Identity Not on file Sexual Orientation Not on file documented as of this encounter Plan of Treatment Upcoming Encounters Date Type Department Care Team ([facility] Contact Info) Description 11/29/2024 10:30 AM EDT Clinical Support Pav [facility] Head[facility] Neck & Respiratory 800 [facility] 2nd [place] [address] 11/29/2024 11:00 AM EDT Office Visit Pav [facility] Head[facility] Neck & Respiratory 800 [facility] 2nd [place] [address] Satnam Colvin MD 800 [facility] [address] [place] [address] 11/29/2024 12:30 PM EDT Appointment [facility] 1 [address] [place] [address] 11/30/2024 1:30 PM EDT Appointment [facility] 1 [address] [place] [address] 12/01/2024 2:00 PM EDT Appointment [facility] 1 [address] [place] [address] 12/06/2024 11:40 AM EDT Appointment [facility] CC Radiation 800 [facility]. [id number] [place] [address] Haven Blum, INDUSTRIAL TECHNICIAN 800 [facility] [address] [place] [address] 01/19/2025 9:30 AM EDT Appointment P[facility] S Radiology [address], 1st [place] [address] 01/19/2025 10:45 AM EDT Office Visit [place] [facility] [address], 1st [place] [address] Abhilash Bangura MD [address] [place] [address] 03/08/2025 1:00 PM EDT Office Visit [facility] [place] Wenceslao [address] [place] [address] Teresita Oconnell MD [address] [place] [address] documented as of this encounter Procedures Procedure Name Priority Date/Time Associated Diagnosis Comments RAD ONC ARIA SESSION SUMMARY Routine 10/24/2024 12:06 PM EDT documented in this encounter Results * Rad Onc Aria Session Summary (10/24/2024 [...] Oncology RADIATION ONCOLO GY ORDERABLES Final Result JESUSITAA RADIATION ONCOLOGY documented in this encounter Visit [...] documented as of this encounter Care Teams Globe Changer Relationship Specialty Start Date End Date Laurie Gutierrez MD [address] [place] [address] PCP - General 12/09/23 Joshua Martínez MD [address] [place], [place] [id number] [place] [address] Consulting Physician Radiation Oncology 09/19/24 Jasmina Smith LPN VALUE-[place] [address] TCM Nurse 10/19/24 11/01/24 documented as of this encounter
--- OUTSIDE RECORDS SUMMARY | 2024-11-15 14:03 | XMS_ITS | Encounter Summary ---
Author Organization [facility] Address [address] [place] [address] Care Team Providers Care Color Drum Worker Name Role Phone Laurie Gutierrez MD Primary Care Provider [phone] Joshua Martínez MD Unavailable Encounter Details Date Type Department Care Team (Latest Contact Info) Description 09/30/2024 Travel 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 Tobacco Use Types Packs/Day [...] living in a penitentiary (including now)? No 09/06/2024 CAGE ASSESSMENT Answer [...] drink first t laurie in the morning (EYE-THEATER EDUCATION TEACHER) to steady your nerves or [...] Upcoming Encounters Date Type Department Care Team ([facility] st Contact Info) Description 11/29/2024 10:30 AM EDT Clinical Support Pav [facility] Head, Neck & Respiratory 800 [facility], 2nd [place] [address] 11/29/2024 11:00 AM EDT Office Visit Pav CC Head, Neck & Respiratory 800 [facility], [address]nd [place] [address] Satnam Colvin MD 800 [facility] [address] [place] [address] 11/29/2024 12:30 PM EDT Appointment [facility] 1 [address] [place] [address] 11/30/2024 1:30 PM EDT Appointment [facility] 1 [address] [place] [address] 12/01/2024 2:00 PM EDT Appointment [facility] 1 [address] [place] [address] 12/06/2024 11:40 AM EDT Appointment [facility] CC Radiation 800 [facility] [id number] [place] [address] Haven Blum, SHOEMAKING CUTTER 800 [facility] [address] [place] [address] 01/19/2025 9:30 AM EDT Appointment [facility] S Radiology [address], [address] [place] [address] 01/19/2025 10:45 AM EDT Office Visit [place] [facility] [address], 1st [place] [address] Abhilash Bangura MD [address] [place] [address] 03/08/2025 1:00 PM EDT Office Visit [facility] [place] Wenceslao [address] [place] [address] Teresita Oconnell MD [address] [place] [address] documented as of this encounter [...] documented as of this encounter Care Teams Color Drum Worker Relationship Specialty Start Date End Date Laurie Gutierrez MD [address] [place] [address] PCP - General 12/09/23 Joshua Martínez MD [address] [place] [address] Consulting Physician Radiation Oncology 09/19/24 documented as of this encounter
--- OUTSIDE RECORDS SUMMARY | 2024-11-15 14:04 | XMS_ITS | Encounter Summary ---
Author Organization Healthcare Address [address] [place] [address] Care Team Providers Care Pleating Machine Operator Name Role Phone Laurie Gutierrez MD Primary Care Provider [phone] Joshua Martínez MD Unavailable Jasmina Smith LPN Unavailable Unavailable Reason for Visit * Reason Comments TCM Call Encounter Details Date Type Department Care Team (Late st Contact Info) Description 10/19/2024 Patient Outreach [facility] [address] [facility] [place] [address] Jasmina Smith LPN VALUE[place] [address] TCM Call 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 Tobacco Use Types [...] any time in the past 12 m [facility], were you homeless or living [...] any time in the past 12 m [facility], were you homeless or living [...] first t laurie in the morning (EYE-WEB OFFSET PRESS FEEDER) to steady your nerves or to get rid of a hangover? 0 10/27/2024 CAGE Questionnaire Score 0 025 Utilities Answer Date Recorded In the past 12 months has th e [employer], gas, oil, or water company threatened to [...] Rankin RN documented as of this encounter Miscellaneous Notes * Progress Notes - Jasmina Smith LPN - 10/19/2024 2:22 PM EDT Admit Date: 10/12/2024 Discharge Date: 10/18/2024 Hospital Service: Hospital Medicine Discharge Diagnosis: Neutropenic fever 10/19/2024 TCM call # 1 Patient Reached: Yes Outcome: [facility] nurse reached out to mobile number listed. Patient reported heart racing, h/o A Fib, not constant, keeping her fatigued. She reached out to Cardiology office requesting a prescription for Metoprolol. [facility] nurse advised patient to return to the ER, she declined. She stated that they willjust prescribe me medication and send me home. Per discharge summary, rate controlled at home with Carvedilol. Confirmed patient has and taking Carvedilol as prescribed. Patient denied light headed, fever, vomiting, pain or falls since discharge. She has a walker for ambulation, independent with ADLs, decreased appetite and consuming adequate fluids. No HH, O2 at 2 L at night and prn in the day. Patient received a copy of her discharge paperwork, reviewed post discharge instructions. She declined to complete medication reconciliation, she received new medication and aware of stop medication listed below. SDME assessment is up to date, no issue with transportation. Snehat is active, aware of upcoming appointments at [facility]. Action: Follow up call after appointment with PCP. Medication changes: Per AVS: Start taking: Magic mouthwash 15 mL QID. Nystatin 5 mL QID. Stop taking: Levetiracetam 500 mg BID. Senna 8.6 mg 2 tablet nightly. [facility] appointment: 10/24/2024 with PCP, Dr. Gutierrez. Items to address at [facility]: N/A * Progress Notes - Jasmina Smith LPN - 10/19/2024 2:22 PM EDT 11/01/2024-No [facility] nurse encounter due to diagnosis and patient admitted to the [facility] until 11/10/2024. documented in this encounter Plan of Treatment Upcoming Encounters Date Type Department Care Team ([facility] st Contact Info) Description 11/29/2024 10:30 AM EDT Clinical Support Pav CC Head, Neck & Respiratory [address] 2nd Floor [place] [phone] 11/29/2024 11:00 AM EDT Office Visit Pav CC Head, Neck & Respiratory 800 [facility], 2nd [place] [address] Satnam Colvin MD 800 [facility] [address] [place] [address] 11/29/2024 12:30 PM EDT Appointment [facility] 1 [address] [place] [address] 11/30/2024 1:30 PM EDT Appointment [facility] 1 [address] [place] [address] 12/01/2024 2:00 PM EDT Appointment [facility] 1 [address] [place] [address] 12/06/2024 11:40 AM EDT Appointment [facility] CC Radiation 800 [facility]. [address] [place] [address] Haven Blum, MECHANICAL ADJUSTER [address] [facility] [address] [place] [address] 01/19/2025 9:30 AM EDT Appointment P[facility] S Radiology [address], 1st [place] [address] 01/19/2025 10:45 AM EDT Office Visit [place] [facility] [address], 1st [place] [address] Abhilash Bangura MD [address] [place] [address] 03/08/2025 1:00 PM EDT Office Visit [facility] [place] [facility] [address] [facility]. 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, STEEPING PRESS OPERATOR Panic 10/26/2024 10/31/2024 Assessment Noted Time PHQ-9 Depression Total Score: 0 09/01/19 3:26 PM EDT A fall risk assessment has been complete d for the patient 10/06/2024 2:29 PM EDT A Body Mass Index follow-up plan has been documented for the patient 10/18/2024 11:56 AM EDT documented as of this encounter Care Teams Pleating Machine Operator Relationship Specialty Start Date End Date Laurie Gutierrez MD [address] [place] [address] PCP - General 12/09/23 Joshua Martínez MD [address] [place] [phone] Consulting Physician Radiation Oncology 09/19/24 Jasmina Smith LPN VALUE[place] [address] TCM Nurse 10/19/24 11/01/24 documented as of this encounter
--- OUTSIDE RECORDS SUMMARY | 2024-11-15 14:04 | XMS_ITS | Encounter Summary ---
Author Organization [facility] Address [address] [place] [address] Care Team Providers Care Health Records Technology Teacher Name Role Phone Laurie Gutierrez MD Primary Care Provider [phone] Joshua Martínez MD Unavailable Encounter Details Date Type Department Care Team (Latest Contact Info) Description 10/12/2024 Travel 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 Tobacco Use Types Packs/Day [...] any time in the past 12 m [facility], were you homeless or [...] drink first t laurie in the morning (EYE-OVERHEAD FOREMAN) to steady your nerves or to get [...] Date of Assessment Author No Risk Indicated 10/12/2024 4:20 PM EDT Alisson Mcintyre, RN * Question Answer Date of Assessment Author 1. Wish to be (Past 1 Month) No 025 4:20 PM EDT Alisson Mcintyre, RN 2. Non-Specific Active Suici radha Thoughts (Past 1 Month) No 10/12/2024 4:20 PM EDT Anu Mcintyre, JOSE MARTIN 6. Suicidal Behavior (Lifetime) No 4:20 PM EDT Alisson Mcintyre, RN documented as of this encounter Plan of Treatment Upcoming Encounters Date Type Department Care Team (Late st Contact Info) Description 11/29/2024 10:30 AM EDT Clinical Support Pav CC Head, Neck & Respiratory 800 [facility], 2nd [place] [address] 11/29/2024 11:00 AM EDT Office Visit Pav CC Head, Neck & Respiratory 800 [facility], 2nd [place] [address] Satnam Colvin MD 800 [facility] [address] [place] [address] 11/29/2024 12:30 PM EDT Appointment [facility] 1 [address] [place] [address] 11/30/2024 1:30 PM EDT Appointment [facility] 1 [address] [place] [address] 12/01/2024 2:00 PM EDT Appointment [facility] 1 [address] [place] [address] 12/06/2024 11:40 AM EDT Appointment [facility] CC Radiation 800 [facility]. [id number] [place] [address] Haven Blum, TRUCKING SUPERVISOR [address] [place] [address] 01/19/2025 9:30 AM EDT Appointment P[facility] S Radiology [address], 1st [place] [address] 01/19/2025 10:45 AM EDT Office Visit [place] [facility] [address], 1st [place] [address] Abhilash Bangura MD [address] [place] [address] 03/08/2025 1:00 PM EDT Office Visit [facility] [place] [facility] [address] [place] [address] Teresita Oconnell MD [address] [place] [address] documented as of this encounter Visit Diagnoses Not on filedocumented in this encounter Additional Health Concerns Infection Onset Date Last Indicated Resolved Time Respiratory Rule-Out 10/12/2024 10/12/2024 025 7:53 PM EDT Assessment Noted Time PHQ-9 Depression Total Score: 0 09/01/19 25 3:26 PM EDT A fall risk assessment has been complete d for the patient 10/06/2024 2:29 PM EDT A Body Mass Index follow-up plan has been documented for the patient 10/18/2024 11:56 AM EDT documented as of this encounter Care Teams Health Records Technology Teacher Relationship Specialty Start Date End Date Laurie Gutierrez MD [address] [place] [address] PCP - General 12/09/23 Joshua Martínez MD [address] [place] [address] Consulting Physician Radiation Oncology 09/19/24 documented as of this encounter
--- OUTSIDE RECORDS SUMMARY | 2024-11-15 14:04 | XMS_ITS | Encounter Summary ---
Author Organization [facility] Address [address] [place] [address] Care Team Providers Care District Sales Manager Name Role Phone Laurie Gutierrze MD Primary Care Provider [phone] Joshua Martínez MD Unavailable Encounter Details Date Type Department Care Team (Latest Contact Info) Description 10/13/2024 Travel 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 Tobacco Use Types Packs/Day [...] in a correction (including now)? No 10/14/2024 CAGE ASSESSMENT Answer [...] drink first t laurie in the morning (EYE-TICKET SORTER) to steady your nerves or to [...] Assessment Author No Risk Indicated 10/13/2024 8:00 PM EDT Tim Dinh * Question Answer Date of Assessment Author 1. Wish to be (Past 1 Month) No 025 8:00 PM EDT Tim Oneal 2. Non-Specific Active Suici radha Thoughts (Past 1 Month) No 10/13/2024 8:00 PM EDT Yoshi Oneal 6. Suicidal Behavior (Lifetime) No 8:00 PM EDT Tim Oneal documented as of this encounter Plan of Treatment Upcoming Encounters Date Type Department Care Team (Late st Contact Info) Description 11/29/2024 10:30 AM EDT Clinical Support Pav CC Head, Neck & Respiratory [address] [facility], 2nd [place] [address] 11/29/2024 11:00 AM EDT Office Visit Pav [facility] Head[facility] Neck & Respiratory [address] [facility], 2nd [place] [address] Satnam Colvin MD 800 [facility] [address] [place] [address] 11/29/2024 12:30 PM EDT Appointment [facility] 1 [address] [place] [address] 11/30/2024 1:30 PM EDT Appointment [facility] 1 [address] [place] [address] 12/01/2024 2:00 PM EDT Appointment [facility] 1 [address] [place] [address] 12/06/2024 11:40 AM EDT Appointment [facility] CC Radiation [address] [facility]. [id number] [place] [address] Haven Blum APRN [address] [place] [address] 01/19/2025 9:30 AM EDT Appointment [facility] S Radiology [address], 1st [place] [address] 01/19/2025 10:45 AM EDT Office Visit [place] [facility] [address], 1st [place] [address] Abhilash Bangura MD [address] [place] [address] 03/08/2025 1:00 PM EDT Office Visit [facility] [place] [facility]o [address] [place] [address] Teresita Oconnell MD [address] [place] [address] documented as of this [...] documented as of this encounter Care Teams District Sales Manager Relationship Specialty Start Date End Date Laurie Gutierrez MD [address] [place] [address] PCP - General 12/09/23 Joshua Martínez MD [address] [place] [address] Consulting Physician Radiation Oncology 09/19/24 documented as of this encounter
--- OUTSIDE RECORDS SUMMARY | 2024-11-15 14:04 | XMS_ITS | Encounter Summary ---
Author Organization Healthcare Address [address] [place] [address] Care Team Providers Care Restoration Ecologist Name Role Phone Laurie Gutierrez MD Primary Care Provider [phone] Joshua Martínez MD Unavailable Jasmina Smith LPN Unavailable Unavailable Encounter Details Date Type Department Care Team (Late st Contact Info) Description 10/19/2024 Telephone [facility] [place] [facility] [address] [place] [address] Teresita Oconnell MD [address] [place] [address] 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 Tobacco Use Types Packs/Day Years [...] in a longterm (including now)? No 10/14/2024 CAGE ASSESSMENT Answer [...] drink first t laurie in the morning (EYE-HIGHWAY ADMINISTRATIVE ENGINEER) to steady your nerves or to [...] encounter Miscellaneous Notes * Telephone Encounter - Teresa Biggs RN - 10/20/2024 8:47 AM EDT Called and spoke with patient's sister Era. She states patient was discharged from the hospital and the next morning her HR was 145. Sister Era is requesting patient be prescribed Metoprolol to help with her HR. Patient's medication list reviewed and advised Era that patient is taking Carvedilolwhich should help her HR. Era then stated that HR goes down after patient takes medication but wants patient to be seen sooner than February. Advised sister that appt with [facility] would be made with EP materials scheduler and she would be notified later today of date and time. Also advised her to encourage patient to rest and drink plenty of fluids as dehydration and additional stress to the body such as the cancer and the chemo would cause her a-fib to be worse. Era verbalized understanding. Messagesent to EP materials scheduler Ashly Gerard to arrange [facility] visit. * Telephone Encounter - Susan Lloyd - 10/19/2024 11:26 AM EDT Clinical Concern/Question Reason for Call: PT experiencing extreme elevated heart rate to where she cannot walk and fatigue. Asking if there is something prescribed she can take now or if something can be prescribed. [facility] Best contact number: Other: [phone] Optimal time of day to reach caller: ANYTIME Additional comments/information from caller: None Note: Please do not reply to this message. Follow-up communication and further actions as a result of this message need to be communicated with the patient directly, if the patient is not active onMyChart. If the patient is active on MyChart, they will receive notification of the communication/outcome via MyChart. * Telephone Encounter - Keren Mcmahon - 10/19/2024 11:01 AM EDT Clinical Concern/Question Reason for Call: Patient's sister asking for patient to be seen sooner than February for her heart rate and fatigue? Best contact number: [phone] Optimal time of day to reach caller: ANYTIME Additional comments/information from caller: None Note: Please do not reply to this message. Follow-up communication and further actions as a result of this message need to be communicated with the patient directly, if the patient is not active on MyChart. If the patient is active on MyChart, they will receive notification of the communication/outcome via MyChart. documented in this encounter Plan of Treatment Upcoming Encounters Date Type Department Care Team ([facility] st Contact Info) Description 11/29/2024 10:30 AM EDT Clinical Support [facility] [address] [facility], 2nd [place] [address] 11/29/2024 11:00 AM EDT Office Visit [facility] [address] [facility], 2nd [place] [address] Satnam Colvin MD [address] [facility] Nuria Degroot [facility] [address] [place] [address] 11/29/2024 12:30 PM EDT Appointment [facility] [address] [place] [address] 11/30/2024 1:30 PM EDT Appointment [facility] 1 [address] [place] [address] 12/01/2024 2:00 PM EDT Appointment [facility] [address] [place] [address] 12/06/2024 11:40 AM EDT Appointment [facility] Rad[facility] [address] [facility]. [address] [place] [address] Haven Blum, TUNA PURSE SEINER [address] [facility] [address] [place] [address] 01/19/2025 9:30 AM EDT Appointment [facility] [address], 1st [place] [address] 01/19/2025 10:45 AM EDT Office Visit [place] [facility] [address], 1st [place] [address] Abhilash Bangura MD [address] [place] [address] 03/08/2025 1:00 PM EDT Office Visit [facility] [place] [facility] [address] [place] [phone] Teresita Oconnell MD [address] [place] [address] documented as of this encounter [...] documented as of this encounter Care Teams Restoration Ecologist Relationship Specialty Start Date End Date Laurie Gutierrez MD [address] [place] [address] PCP - General 12/09/23 Joshua Martínez MD [address] [place] [address] Consulting Physician Radiation Oncology 09/19/24 Jasmina Smith LPN VALUE-BASED [place] [address] [facility] Nurse 10/19/24 11/01/24 documented as of this encounter
--- OUTSIDE RECORDS SUMMARY | 2024-11-15 14:04 | XMS_ITS | Encounter Summary ---
Author Organization Healthcare Address [address] [place] [address] Care Team Providers Care Parts Data Writer Name Role Phone Laurie Gutierrez MD Primary Care Provider [phone] Joshua Martínez MD Unavailable Encounter Details Date Type Department Care Team ([facility] Contact Info) Description 10/17/2024 Orders Only [facility] [address] [facility], 2nd [place] [address] Rupa De Santiago, PharmD [address] [facility] 2nd [place] [address] 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 Tobacco Use Types Packs/Day Years [...] first t laurie in the morning (EYE-MANAGER GARDEN) to steady your nerves or to get [...] Date of Assessment Author No Risk Indicated 10/17/2024 7:46 AM EDT Quan Chavez * Question Answer Date of Assessment Author 1. Wish to be (Past 1 Month) No 025 7:46 AM EDT Quan Chavez 2. Non-Specific Active Suici radha Thoughts (Past 1 Month) No 10/17/2024 7:46 AM EDT Quan Chavez 6. Suicidal Behavior (Lifetime) No 7:46 AM EDT Quan Chavez documented as of this encounter Plan of Treatment Upcoming Encounters Date Type Department Care Team (Late st Contact Info) Description 11/29/2024 10:30 AM EDT Clinical Support [facility] [address] [address] 11/29/2024 11:00 AM EDT Office Visit [facility] [address] [address] Satnam Colvin MD [address] [facility] Nuria Degroot [address] [address] 11/29/2024 12:30 PM EDT Appointment [facility] 1 [address] [place] [address] 11/30/2024 1:30 PM EDT Appointment [facility] 1 [address] [place] [address] 12/01/2024 2:00 PM EDT Appointment [facility] [address] [place] [address] 12/06/2024 11:40 AM EDT Appointment [facility] [id number] [place] [address] Haven Blum, HEALTH SERVICE WORKER [address] [place] [address] 01/19/2025 9:30 AM EDT Appointment [facility] [address], 1st [place] [address] 01/19/2025 10:45 AM EDT Office Visit [place] [facility] [address], 1st [place] [address] Abhilash Bangura MD [address] [place] [address] 03/08/2025 1:00 PM EDT Office Visit [facility] [place] [facility] [address] [place] [address] Teresita Oconnell MD [address] [place] [address] documented as of this encounter [...] documented as of this encounter Care Teams Parts Data Writer Relationship Specialty Start Date End Date Laurie Gutierrez MD [address] [place] [address] PCP - General 12/09/23 Joshua Martínez MD [address] [address] Consulting Physician Radiation Oncology 09/19/24 documented as of this encounter
--- OUTSIDE RECORDS SUMMARY | 2024-11-15 14:04 | XMS_ITS | Encounter Summary ---
Author Organization [facility] Address [address] [place] [address] Care Team Providers Care Insurance Marketing Rep Name Role Phone Laurie Gutierrez MD Primary Care Provider [phone] Joshua Martínez MD Unavailable Encounter Details Date Type Department Care Team (Latest Contact Info) Description 10/14/2024 Travel 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 Tobacco Use Types Packs/Day [...] in a assisted (including now)? No 10/14/2024 CAGE ASSESSMENT Answer [...] drink first t laurie in the morning (EYE-UNIVERSITY REGISTRAR) to steady your nerves or to get [...] Upcoming Encounters Date Type Department Care Team ([facility] st Contact Info) Description 11/29/2024 10:30 AM EDT Clinical Support [facility] 800 [facility], 2nd [place] [address] 11/29/2024 11:00 AM EDT Office Visit [facility] [address] [facility], 2nd [place] [address] Satnam Colvin MD [address] [facility] [address] [place] [address] 11/29/2024 12:30 PM EDT Appointment [facility] 1 [address] [place] [address] 11/30/2024 1:30 PM EDT Appointment [facility] 1 [address] [place] [address] 12/01/2024 2:00 PM EDT Appointment [facility] 1 [address] [place] [address] 12/06/2024 11:40 AM EDT Appointment [facility] Rad[facility] [address] [facility]. [id number] [place] [address] Haven Blum, BEADER TENDER [address] [facility] [address] [place] [address] 01/19/2025 9:30 AM EDT Appointment [facility] Radiology [address], [address] [place] [address] 01/19/2025 10:45 AM EDT Office Visit [place] [facility] [address], 1st [place] [address] Abhilash Bangura MD [address] [place] [address] 03/08/2025 1:00 PM EDT Office Visit [facility] [place] [facility] [address] [place] [address] Teresita Oconnell MD [address] [place] [address] documented as of this encounter Visit Diagnoses Not on filedocumented in this encounter Additional Health Concerns Infection Onset Date Last Indicated Resolved Time Meningitis Rule-Out 10/14/2024 10/14/2024 10/15/19 11:54 AM EDT Assessment Noted Time PHQ-9 Depression Total Score: 0 09/01/19 3:26 PM EDT A fall risk assessment has been complete d for the patient 10/06/2024 2:29 PM EDT A Body Mass Index follow-up plan has been documented for the patient 10/18/2024 11:56 AM EDT documented as of this encounter Care Teams Insurance Marketing Rep Relationship Specialty Start Date End Date Laurie Gutierrez MD [address] [place] [address] PCP - General 12/09/23 Joshua Martínez MD [address] [place] [address] Consulting Physician Radiation Oncology 09/19/24 documented as of this encounter
--- OUTSIDE RECORDS SUMMARY | 2024-11-15 14:04 | XMS_ITS | Encounter Summary ---
Author Organization Healthcare Address [address] [place] [address] Care Team Providers Care In Home Nanny Name Role Phone Laurie Gutierrez MD Primary Care Provider [phone] Joshua Martínez MD Unavailable Jasmina Smith RN PERINATAL Unavailable Unavailable Reason for Visit * Reason Onset Date Comments HCN - Patient Message 10/12/2024 Call back Encounter Details Date Type Department Care Team (Late st Contact Info) Description 10/12/2024 Telephone [place] [facility] [address], [address] [place] [address] Abhilash Bangura MD [address] [place] [address] HCN - Patient Message (Call back ) 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 Tobacco Use Types Packs/Day Years [...] 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 Please call to discuss. Patient is thinking about coming to ER. Best contact number and optimal time of day to reach caller: [phone] anytime Note: Please do not reply to this message. Follow-up communication and further actions as a result of this message need to be communicated with the patient directly, if the patient is not active onMyChart. If the patient is active on MyChart, they will receive notification of the communication/outcome via FilesXhart. documented in this encounter Plan of Treatment Upcoming Encounters Date Type Department Care Team (Late st Contact Info) Description 11/29/2024 10:30 AM EDT Clinical Support [facility] [address] [facility], 2nd [place] [address] 11/29/2024 11:00 AM EDT Office Visit [facility] [address] [facility], [address]nd [place] [address] Satnam Colvin MD [address] [facility] [address] [place] [address] 11/29/2024 12:30 PM EDT Appointment [facility] 1 [address] [place] [address] 11/30/2024 1:30 PM EDT Appointment [facility] 1 [address] [place] [address] 12/01/2024 2:00 PM EDT Appointment [facility] 1 [address] [place] [address] 12/06/2024 11:40 AM EDT Appointment [facility] Rad[facility] [address] [facility]. [id number] [place] [address] Haven Blum, STATISTICAL FINANCIAL ANALYST [address] [facility] [address] [place] [address] 01/19/2025 9:30 AM EDT Appointment [facility] [address], 1st [place] [address] 01/19/2025 10:45 AM EDT Office Visit [place] [facility] [address], [address] [place] [address] Abhilash Bangura MD [address] [place] [address] 03/08/2025 1:00 PM EDT Office Visit [facility] [place] [address] 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 ASSISTANT Panic 10/26/2024 10/31/2024 Assessment Noted Time PHQ-9 Depression Total Score: 0 09/01/19 3:26 PM EDT A fall risk assessment has been complete d for the patient 10/06/2024 2:29 PM EDT A Body Mass Index follow-up plan has been documented for the patient 10/18/2024 11:56 AM EDT documented as of this encounter Care Teams In Home Nanny Relationship Specialty Start Date End Date Laurie Gutierrez MD [address] [place] [address] PCP - General 12/09/23 Joshua Martínez MD 800 [facility] [address] [place] [address] Consulting Physician Radiation Oncology 09/19/24 Jasmina Smith LPN VALUE-[place]ED [place] [address] TCM Nurse 10/19/24 11/01/24 documented as of this encounter
--- OUTSIDE RECORDS SUMMARY | 2024-11-15 14:04 | XMS_ITS | Encounter Summary ---
Author Organization [facility] Address [address] [place] [address] Care Team Providers Care Clinic Nurse Name Role Phone Laurie Gutierrez MD Primary Care Provider Joshua Martínez MD Unavailable Encounter Details Date Type Department Care Team (Latest Contact Info) Description 10/18/2024 Travel 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 Tobacco Use Types Packs/Day [...] time in the past 12 m [facility], were you homeless or living in a fci (including now)? 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 Suicidal Behavior (Lifetime) No 8:00 AM EDT Jeni Clark documented as of this encounter Plan of Treatment Upcoming Encounters Date Type Department Care Team (Late st Contact Info) Description 11/29/2024 10:30 AM EDT Clinical Support [facility] [address] [facility], 2nd [place] [address] 11/29/2024 11:00 AM EDT Office Visit [facility] [address] [facility], [address]nd [place] [address] Satnam Colvin MD [address] [facility] [address] [facility] [address] [place] [address] 11/29/2024 12:30 PM EDT Appointment [facility] 1 [address] [place] [address] 11/30/2024 1:30 PM EDT Appointment [facility] 1 [address] [place] [address] 12/01/2024 2:00 PM EDT Appointment [facility] 1 [address] [place] [address] 12/06/2024 11:40 AM EDT Appointment [facility] Radiation [address] [facility]. [id number] [place] [address] Haven Blum APRN [address] [place] [address] 01/19/2025 9:30 AM EDT Appointment [facility] [address], [address] [place] [address] 01/19/2025 10:45 AM EDT Office Visit [place] [facility] [address], [address] [place] [address] Abhilash Bangura MD [address] [place] [address] 03/08/2025 1:00 PM EDT Office Visit [facility] [place] [facility] [address] [place] [address] Teresita Oconnell MD [address] [place] [address] documented as of this encounter [...] documented as of this encounter Care Teams Clinic Nurse Relationship Specialty Start Date End Date Laurie Gutierrez MD [address] [place] [address] PCP - General 12/09/23 Joshua Martínez MD [address] [place] [address] Consulting Physician Radiation Oncology 09/19/24 documented as of this encounter
[2024-11-15] MEDS: ACETAMINOPHEN 1,000MG/100ML VIAL 1000 MG IV (14:10)
--- NOTE | 2024-11-15 14:29 | PC.NURSE ---
iv access attempted with ultrasound with no success at this time. labs obtained.
--- NOTE | 2024-11-15 14:47 | PC.NURSE ---
calling [facility] at this time.
--- NOTE | 2024-11-15 15:25 | PC.NURSE ---
spoke to MD regarding inability to obtain IV access. he will ultrasound
--- NOTE | 2024-11-15 15:28 | PC.NURSE ---
Called RAD for disc and for pt's images to be powershared to [facility]
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
--- NOTE | 2024-11-15 15:43 | PC.NURSE ---
Dr. Ruffin at bedside attempting to obtain IV access.
--- NOTE | 2024-11-15 15:49 | PC.NURSE ---
report called to Deya @[facility]. pt is going to fly with [facility]. est 20 mins
--- NOTE | 2024-11-15 15:51 | PC.NURSE ---
[facility] called and advised they would have a 13 min ETA
--- NOTE | 2024-11-15 15:58 | PC.NURSE ---
18 RUE ultrasound guided per Carolyn Ruffin
--- NOTE | 2024-11-15 16:09 | PC.NURSE ---
[facility] here to get pt. report given to Brissa monzon flight nurse
== END 2024-11-15 16:18 | disposition short-term general hospital (02) ==
PROVIDERS: Emergency Provider Student in an Organized Health Care Education/Training Program
DX: S06.5X1A Traumatic subdural hemorrhage with loss of consciousness of 30 minutes or less, initial encounter (principal); M25.562 Pain in left knee; M79.645 Pain in left finger(s); M54.2 Cervicalgia; Z87.891 Personal history of nicotine dependence; Z85.841 Personal history of malignant neoplasm of brain; W01.10XA Fall on same level from slipping, tripping and stumbling with subsequent striking against unspecified object, initial encounter
CPT/HCPCS: 70450; 71045; 72125; 73100; 73120; 73562; 76942; 93005; 96374; 99291; J0131

== ENCOUNTER 2024-11-24 20:41 | Inpatient (IN) | payer MEDICAID, SELFPAY ==
--- OUTSIDE RECORDS SUMMARY | 2024-09-26 12:55 | XMS_ITS | Encounter Summary ---
Author Organization [facility] Address [address] [place] [address] Care Team Providers Care Corporate Counselor Name Role Phone Laurie Gutierrez MD Primary Care Provider [phone] Joshua Martínez MD Unavailable Reason for Referral * Radiation Therapy (Routine) - Authorized Specialty Diagnoses / Procedures Referred By Contac t Referred To Contact Radiation Oncology Diagnoses 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CMS/HCC) Procedures Rad Onc Intent to Treat Joshua Martínez MD [address] [address] Phone: tel: fax: [facility] [address] [place] [phone] Phone: tel: fax: Referral ID Status Reason Start Date Expiration Date Visits Requested Visits Authorized [id number] Authorized Perform Procedure 09/30/2024 01/15/2025 10 10 * Consultation (Routine) - Closed Specialty Diagnoses / Procedures Referred By Contac t Referred To Contact Radiation Oncology Diagnoses Brain mass Litzy Dacosta, [address] [place] [address] Phone: tel: fax: [facility] [address] [place] [phone] Phone: tel: fax: Referral ID Status Reason Start Date Expiration Date V isits Requested Visits Authorized [id number] Closed Specialty Services Required 09/06/2024 03/08/2026 1 1 Scheduling Instructions SCLC with brain mets s/p crani Reason for Visit * Reason Comments Follow-up * Consultation (Routine) - Closed Specialty Diagnoses / Procedures Referred By Contnida carreon Referred To Contact Radiation Oncology Diagnoses Brain mass Litzy Dacosta DO [address] [place] [address] Phone: tel: fax: [facility] [address] [place] [address] Phone: tel: fax: Referral ID Status Reason Start Date Expiration Date V isits Requested Visits Authorized [id number] Closed Specialty Services Required 09/06/2024 03/08/2026 1 1 Encounter Details Date Type Department Care Team (Latest Contact Info) Description 09/26/2024 12:55 PM EDT - 09/26/2024 3:59 PM EDT Hospital Encounter [facility] [address] [facility] [place] [address] Joshua Martínez MD 800 [facility] [address] [place] [phone] 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 No 11/20/2023 PHQ-9 Answer Date [...] any time in the past 12 m [facility], were you homeless or living in a longterm (including now)? No 09/06/2024 CAGE ASSESSMENT Answer [...] drink first t laurie in the morning (EYE-METALIZER) to steady your nerves or to get rid of a hangover? 0 11/19/2023 CAGE Questionnaire Score 0 024 Utilities Answer Date Recorded In the past 12 months has e [employer] [place], gas, oil, or water [employer] threatened to shut off services in your home? No 09/06/2024 Comments No Sex and Gender Information Value Date Recorded Sex Assigned at Not on file Legal Sex Female 8:32 PM EDT Gender Identity Not on file Sexual Orientation Not on file documented as of this encounter Last Filed Vital Signs Vital Sign Reading Time Taken Comments Blood Pressure 120/79 09/26/2024 1:29 PM EDT Pulse 90 09/26/2024 1:29 PM EDT Temperature - - Respiratory Rate 16 09/26/2024 1:29 PM EDT Oxygen Saturation 93% 09/26/2024 1:29 PM EDT Inhaled Oxygen Concentration - - Weight 124 kg (274 lb 7.6 oz) 09/26/2024 1:29 PM EDT Height - - Body Mass Index 42.99 09/22/2024 2:45 PM EDT documented in this encounter Medications at Time of Discharge atorvastatin (Lipitor) 40 MG tablet Take 1 tablet by mouth every evening. Budeson-Glycopyrrol- Formoterol (Breztri Aerosphere) 160-9-4.8 MCG/ACT aerosol Inhale 2 puffs 2 (two) times a day. Calcium Carb-Cholecalciferol 600-10 MG-MCG tablet Take 1 tablet by mouth daily. cetirizine (ZyrTEC) 10 MG tablet Take 1 tablet by mouth daily. FLUoxetine (PROzac) 40 MG capsule Take 1 capsule by mouth daily. hydrOXYzine HCl (Atarax) 25 MG tablet Take 1 tablet by mouth 3 times a day as needed. melatonin tablet Take 2 tablets by mouth nightly. metFORMIN (Glucophage) 1000 MG tablet Take 1 tablet by mouth 2 times a day with meals. montelukast (Singulair) 10 MG tablet Take 1 tablet by mouth nightly. pantoprazole (Protonix) 40 MG EC tablet Take 1 tablet by mouth daily. Do not crush, chew, or split. rOPINIRole (Requip) 1 MG tablet Take 1 tablet by mouth 2 times a day. SITagliptin (Januvia) 50 MG tablet Take 1 tablet by mouth every morning. triamterene-hydrochl orothiazide (Maxzide-25) 37.5-25 MG tablet Take 1 tablet by mouth every morning. Vitamin B-12 ER 1000 MCG tablet controlled-release Take 1 tablet by mouth Daily. ferrous sulfate 325 (65 Fe) MG tablet Take 1 tablet by mouth Daily. 08/23/2024 5 Accu-Chek Softclix Lancets lancets USE TO TEST BLOOD SUGAR 3 TIMES EACH DAY 09/01/2024 5 Alcohol Swabs (Easy Touch Alcohol Prep Medium) 70 % pads 09/19/2024 02 5 B-D UF III MINI PEN NEEDLES 31G X 5 MM misc 09/19/2024 5 benzonatate (Tessalon) 200 MG capsule Take 1 capsule by mouth 3 times a day as needed for cough. 5 Blood Glucose Monitoring Suppl (GeoVax Verio Flex System) w/Device kit 09/19/202410/16 5 carvedilol (Coreg) 12.5 MG tablet Take 1 tablet by mouth 2 times a day with meals. 5 ciclopirox (Penlac) 8 % solution Apply over affected nail fold daily. 5 Continuous Glucose Sensor (Dexcom G6 Sensor) [facility] [place] USE DIRECTED TO MEASURE BLOOD SUGAR. REPLACE SENSOR EVERY 10 DAYS 09/01/2024 5 dexamethasone (Decadron) 2 MG tablet Take 2 tablets by mouth every 8 hours for 4 days, THEN 2 tablets every 12 hours for 4 days, THEN 1 tablet every 12 hours. 09/09/2024 5 empagliflozin (Jardiance) 25 MG Take 1 tablet by mouth daily. 5 FREESTYLE LITE test strip USE TO TEST BLOOD SUGAR 3 TIMES EACH DAY AND NEEDED 09/01/2024 5 gabapentin (Neurontin) 600 MG tablet Take 1 tablet by mouth 4 times a day. 5 insulin glargine-yfgn 100 UNIT/ML injection vial Inject 45 Units under the skin nightly. Can be adjusted per the MD at [facility] 09/09/2024 5 insulin lispro (Admelog, HumaLOG) 100 UNIT/ML injection pen 09/19/2024 Insulin Lispro (Admelog, HumaLOG) 100 UNIT/ML injection vial Inject 15 Units under the skin 3 times a day with meals. Can be adjusted per the MD at [facility] 09/09/2024 5 Lantus SoloStar 100 UNIT/ML injection pen 09/19/2024 5 levETIRAcetam (Keppra) 500 MG tablet Take 1 tablet by mouth 2 times a day. 09/09/2024 5 ondansetron (Zofran) 8 MG tablet Take 1 tablet by mouth every 8 hours as needed for nausea or vomiting. 5 ondansetron ODT (Zofran-ODT) 4 MG disintegrating tablet 09/19/2024 5 polyethylene glycol (Miralax) 17 g packet Take 17 g by mouth daily. 09/10/2024 5 senna (Senokot) 8.6 MG tablet Take 2 tablets by mouth nightly. 09/09/2024 5 tiZANidine (Zanaflex) 2 MG tablet Take 1 tablet by mouth nightly. 5 Xarelto 20 MG tablet Take 1 tablet by mouth every evening. 5 documented as of this encounter Miscellaneous Notes * Progress Notes - Joshua Martínez MD - 09/26/2024 1:30 PM EDT Radiation Oncology Consult Patient Name: Teresa Rivera Date of : 1960 63 y.o. Staff Physician: Referring Physician: Litzy Dacosta DO Date of Service: 09/26/2024 Teresa Rivera presents today for consultation as requested by Litzy Dacosta DO, regarding treatment of: resected brain metastatic SCLC. History of Present Illness: Teresa Rivera is a 63-year-old female with a significant past medical history of COPD (former smoker), hypertension, type 2 diabetes mellitus, paroxysmal atrial fibrillation (s/p CTI ablation, currently on rivaroxaban), chronic pain (on gabapentin), depression/anxiety (on fluoxetine and PRN hydroxyzine), and Stage III small cell lung cancer (diagnosed 07/2023), previously treated with chemotherapy (carboplatin/etoposide) and radiation in 2023. initially presented in July 2023 with worsening shortness of breath. She has a known history of COPD but reported progressive respiratory symptoms over the preceding 5-6 months, prompting evaluationby size cutter Dr. Quisep. Given her significant smoking history, a screening low-dose chest CTwas obtained on July 31, 2023, which revealed a 3.7 cm suprahilar mass in the right upper lobe marcela 1.7 cm right paratracheal lymph node, both concerning for malignancy. She subsequently underwent endobronchial ultrasound (EBUS) with biopsy on August 11, 2023, which confirmed the diagnosis of small cell lung carcinoma (SCLC). She was referred to oncology (Dr. Sriram Lobato) for further management. Staging work-up included: PET/CT (September 01, 2023): Hypermetabolic activity in the mediastinum and faint uptake in the right upper lobe, consistent with limited-stage disease. MRI Brain (September 01, 2023): Negative for intracranial metastasis. Based on these findings, she was diagnosed with limited-stage small cell lung cancer and initiated on definitive concurrent chemoradiation: Radiation therapy: Delivered to the right upper lobe and mediastinum from September 07 to October 06, 2023 Chemotherapy: Carboplatin and etoposide, 4 cycles from September 07 to November 13, 2023 Following completion of treatment, prophylactic cranial irradiation (PCI) was discussed. However, due to some baseline cognitive concerns, the patient elected for surveillance rather than PCI. She presented to the [facility] on 08/31/2024 with new-onset right lower extremity weakness, numbness, and gait instability. Imaging revealed a left frontal mass, and she subsequently underwent a craniotomy for tumor resection on 09/05/2024. Pathology confirmed metastatic small cell lung c arcinoma. Postoperative Course and Current Status: The patient presents today for postoperative follow-up. She reports improved strength in her right arm and leg and is now able to complete basic activities of daily living, including making breakfast, with minimal assistance. She denies new or worsening neurologic symptoms, including headaches, nausea, vomiting, seizures, vision changes, bowel or bladder issues, or further weakness. She also denies signs of infection. On exam, the surgical incision is clean, dry, and intact, with no signs of redness, drainage, ecchymosis, or edema. Wound edges are well-approximated. Relevant Imaging and Findings: MRI Brain w/wo contrast (09/05/2024): Postoperative changes consistent with subtotal resection of an enhancing mass in the left posteriorfrontal lobe. Residual enhancing tumor noted along the deep medial margin. Stable inferior-medial hematoma and small left convexity subdural hematoma. MRI Brain (09/02/2024): Enhancing extra-axial mass with superior sagittal sinus invasion and possible thrombus. Associated intraparenchymal hemorrhage and vasogenic edema. Small stable subdural hematoma. CT Head (08/31-09/01/2024): 2.9 x 3.2 x 3.2 cm left paramedian superior frontal hyperdense hemorrhagic mass with surrounding vasogenic edema. Subdural hemorrhage up to 4 mm. No midline shift. Concern for venous thrombosis in superior sagittal sinus. Assessment/Plan IMPRESSION: Stage III SCLC with intracranial metastasis to the left frontal lobe (s/p craniotomy, 09/05/2024) No evidence of metastatic disease within the chest, abdomen or pelvis. Postoperative recovery progressing well, with improving neurologic function Chronic comorbidities: COPD (former smoker) Type 2 diabetes with episodes of hyperglycemia Paroxysmal atrial fibrillation (on NOAC) Chronic pain, depression, anxiety OPINIONS AND RECOMMENDATIONS: Systemic disease under control No thoracic recurrence Brain mets s/p Subtotal resection FSRT [id number] to surgical cavity followed by WBRT 30Gy/10 Consider Immunotherapy PAST MEDICAL HISTORY: Medical History[1] PAST SURGICAL HISTORY: Surgical History[2] GYNECOLOGICAL HISTORY (if applicable): NA FAMILY HISTORY: Family History[3] SOCIAL HISTORY: 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 Socioeconomic History Marital status: Spouse name: Not on file Number of children: Not on file Years of education: Not on file Highest education level: Not on file Occupational History Not on file Tobacco Use Smoking status: Former Current packs/day: 0.00 Average packs/day: 1.5 packs/day for 48.4 years (72.6 ttl pk-yrs) Types: Cigarettes Start date: 1975 Quit date: 10/17/2023 Years since quittin.9 Smokeless tobacco: Never Vaping Use Vaping status: Never Used Substance and Sexual Activity Alcohol use: No Drug use: Never Sexual activity: Not on file Other Topics Concern Not on file 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 Marital Status: Social Drivers of Health Financial Resource Strain: Not on file Food Insecurity: No Food Insecurity (09/06/2024) Hunger Vital Sign Worried About Running Out of Food in the Last Year: Never true Ran Out of Food in the Last Year: Never true Transportation Needs: No Transportation Needs (09/06/2024) PRAPARE - Transportation Lack of Transportation (Medical): No Lack of Transportation (Non-Medical): No Physical Activity: Not on file Stress: Not on file Social Connections: Low Risk (05/26/2023) Received from [facility] Andre Phillipe Family and Community Support Help with Day to Day Activities: Not on file Feeling Lonely or Isolated: Not on file Intimate Partner Violence: Not At Risk (09/06/2024) Humiliation, Afraid, Rape, and Kick questionnaire Fear of Current or Ex-Partner: No Emotionally Abused: No Physically Abused: No Sexually Abused: No Housing Stability: Unknown (09/06/2024) Housing Stability Vital Sign Unable to Pay for Housing in the Last Year: No Number of Times Moved in the Last Year: Not on file Homeless in the Last Year: No ALLERGIES: Allergies as of 09/26/2024 - Reviewed 09/26/2024 Allergen Reaction Noted Cephalexin Other - please document in the comment field 11/19/2023 Lisinopril Cough and Other - please document in the comment field 11/19/2023 Meloxicam Cough and Other - please document in the comment field 06/30/2016 MEDICATIONS: Current Medications[4] REVIEW OF SYSTEMS: Review of Systems HENT: Negative. Eyes: Negative. Respiratory: Negative. Cardiovascular: Negative. Gastrointestinal: Negative. Skin: Negative. Symptomatic; fully ambulatory Objective PHYSICAL EXAM: Physical Exam Constitutional: Appearance: Normal appearance. HENT: Head: Normocephalic. Eyes: Pupils: Pupils are equal, round, and reactive to light. Cardiovascular: Rate and Rhythm: Normal rate. Pulmonary: Effort: Pulmonary effort is normal. Abdominal: General: Abdomen is flat. Musculoskeletal: General: Normal range of motion. Cervical back: Normal range of motion. Skin: General: Skin is warm. Neurological: General: No focal deficit present. Mental Status: She is alert. Psychiatric: Mood and Affect: Mood normal. DIAGNOSTIC REPORTS REVIEWED: MR HEAD W AND WO IV CONTRAST authorized by: Zoraida Herbert MD Study Result Narrative & Impression CLINICAL INDICATION: Craniotomy, post-op TECHNIQUE: Multiplanar multiecho [...] No tonsillar ectopia or mass is present. IMPRESSION: 1. Postsurgical changes from subtotal resection of enhancing mass in the left posterior frontal lobe. Residual enhancing tumor along the deep medial margin. Stable hematoma along the inferior-medial margin of the surgical bed. 2. Smaller subdural hematoma along the left convexity. CRITICAL RESULT: No. COMMUNICATION: Per this written report. [1] Past Medical History: Diagnosis Date Brain [...] SURGERY TUBAL LIGATION N/A Tubal Ligation from [employer] TYMPANOSTOMY TUBE PLACEMENT N/A Ear Surgery Eustachian Tube from [employer] [3] Family History Problem Relation Name Age of Onset No Known Problems Mother No Known Problems Father Diabetes Other Fibromyalgia Other [4] Current Outpatient Medications Medication Sig Dispense Refill Accu-Chek Softclix Lancets lancets USE TO TEST BLOOD SUGAR 3 TIMES EACH DAY Alcohol Swabs (Easy Touch Alcohol Prep Medium) 70 % pads atorvastatin (Lipitor) 40 MG tablet Take 1 tablet by mouth daily. B-D UF III MINI PEN NEEDLES 31G X 5 MM [facility] [place] Blood Glucose Monitoring Suppl (GeoVax Verio Flex System) w/Device kit Nzhqigg-Bfhykcgyelp-Vtrbbomypc (Breztri Aerosphere) 160-9-4.8 MCG/ACT aerosol Inhale 2 puffs 2 (two) times a day. Calcium Carb-Cholecalciferol 600-10 MG-MCG tablet Take 600 mg by mouth daily. carvedilol (Coreg) 12.5 MG tablet Take 1 tablet by mouth 2 (two) times a day with meals. cetirizine (ZyrTEC) 10 MG tablet Take 1 tablet by mouth daily. ciclopirox (Penlac) 8 % solution Apply over affected nail fold daily. Continuous Glucose Sensor (Dexcom G6 Sensor) [facility] [place] USE DIRECTED TO MEASURE BLOOD SUGAR. REPLACE SENSOR EVERY 10 DAYS dexamethasone (Decadron) 2 MG tablet Take 2 tablets by mouth every 8 hours for 4 days, THEN 2 tablets every 12 hours for 4 days, THEN 1 tablet every 12 hours. empagliflozin (Jardiance) 25 MG Take 1 tablet by mouth daily. ferrous sulfate 325 (65 Fe) MG tablet Take 1 tablet by mouth Daily. FLUoxetine (PROzac) 40 MG capsule Take 1 capsule by mouth daily. FREESTYLE LITE test strip USE TO TEST BLOOD SUGAR 3 TIMES EACH DAY AND NEEDED gabapentin (Neurontin) 600 MG tablet Take 1 tablet by mouth 4 (four) times a day. hydrOXYzine HCl (Atarax) 25 MG tablet Take 1 tablet by mouth daily as needed. insulin glargine-yfgn 100 UNIT/ML injection vial Inject 45 Units under the skin nightly. Can be adjusted per the MD at [facility] Insulin Lispro (Admelog, HumaLOG) 100 UNIT/ML injection vial Inject 15 Units under the skin 3 timesa day with meals. Can be adjusted per the MD at [facility] Lantus SoloStar 100 UNIT/ML injection pen levETIRAcetam (Keppra) 500 MG tablet Take 1 tablet by mouth 2 times a day. melatonin tablet metFORMIN (Glucophage) 1000 MG tablet Take 1 tablet by mouth 2 (two) times a day with meals. montelukast (Singulair) 10 MG tablet Take 1 tablet by mouth nightly. ondansetron (Zofran) 8 MG tablet Take 1 tablet by mouth every 8 hours as needed for nausea or vomiting. ondansetron ODT (Zofran-ODT) 4 MG disintegrating tablet rOPINIRole (Requip) 1 MG tablet TAKE 1 TABLET 2 TIMES EACH DAY senna (Senokot) 8.6 MG tablet Take 2 tablets by mouth nightly. SITagliptin (Januvia) 50 MG tablet Take 1 tablet by mouth daily. tiZANidine (Zanaflex) 2 MG tablet Take 1 tablet by mouth nightly. triamterene-hydrochlorothiazide (Maxzide-25) 37.5-25 MG tablet Take 1 tablet by mouth every morning. Vitamin B-12 ER 1000 MCG tablet controlled-release Take 1 tablet by mouth Daily. Xarelto 20 MG tablet Take 1 tablet by mouth every evening. benzonatate (Tessalon) 100 MG capsule Take 1 capsule by mouth 3 (three) times a day as needed for cough. (Patient not taking: Reported on 09/26/2024) insulin lispro (Admelog, HumaLOG) 100 UNIT/ML injection pen (Patient not taking: Reported on 09/26/2024) pantoprazole (Protonix) 40 MG EC tablet Take 1 tablet by mouth daily. Do not crush, chew, or split.(Patient not taking: Reported on 09/26/2024) polyethylene glycol (Miralax) 17 g packet Take 17 g by mouth daily. (Patient not taking: Reported on 09/26/2024) No current facility-administered medications for this encounter. documented in this encounter Plan of Treatment Upcoming Encounters Date Type Department Care Team ([facility] st Contact Info) Description 11/29/2024 10:30 AM EDT Clinical Support [facility] [address] [facility], [address]nd [place] [phone] 11/29/2024 11:00 AM EDT Office Visit [facility] [address] [facility], [address] [place] [address] Satnam Colvin MD [address] [facility] [address] [place] [phone] 11/29/2024 12:30 PM EDT Appointment [facility] [address] [place] [phone] 11/30/2024 1:30 PM EDT Appointment [facility] [address] [place] [address] 12/01/2024 2:00 PM EDT Appointment [facility] [address] [place] [phone] 12/06/2024 11:40 AM EDT Appointment [facility] [address] [facility]. [address] [place] [phone] Haven Blum, E COMMERCE SPECIALIST [address] [facility] [address] [place] [phone] 01/19/2025 9:30 AM EDT Appointment [facility] [address] [place] [phone] 01/19/2025 10:45 AM EDT Office Visit [facility] [address], [address] [place] [phone] Abhilash Bangura MD [address] [place] [address] 03/08/2025 1:00 PM EDT Office Visit [facility] [place] Wenceslao 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)- Primary 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 mass Unspecified condition of brain documented in this encounter Additional Health Concerns Assessment Noted Time PHQ-9 Depression Total Score: 0 09/01/19 3:26 PM EDT A fall risk assessment has been complete d for the patient 09/26/2024 1:31 PM EDT A Body Mass Index follow-up plan has been documented for the patient 09/22/2024 3:08 PM EDT documented as of this encounter Care Teams Corporate Counselor Relationship Specialty Start Date End Date Laurie Gutierrez MD [address] [place] [phone] PCP - General 12/09/23 Joshua Martínez MD [address] [place] [phone] Consulting Physician Radiation Oncology 09/19/24 documented as of this encounter
--- OUTSIDE RECORDS SUMMARY | 2024-09-26 12:55 | XMS_ITS | Encounter Summary ---
Author Organization [facility] Address [address] [place] [address] Care Team Providers Care Emergency Department Clinician Name Role Phone Laurie Gutierrez MD Primary Care Provider [phone] Joshua Martínez MD Unavailable Reason for Referral * Radiation Therapy (Routine) - Authorized Specialty Diagnoses / Procedures Referred By Contac t Referred To Contact Radiation Oncology Diagnoses 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CMS/HCC) Procedures Rad Onc Intent to Treat Joshua Martínez MD [address] [address] Phone: tel: fax: [facility] [address] [place] [phone] Phone: tel: fax: Referral ID Status Reason Start Date Expiration Date Visits Requested Visits Authorized [id number] Authorized Perform Procedure 09/30/2024 01/15/2025 10 10 * Consultation (Routine) - Closed Specialty Diagnoses / Procedures Referred By Contac t Referred To Contact Radiation Oncology Diagnoses Brain mass Litzy Dacosta, [address] [place] [address] Phone: tel: fax: [facility] [address] [place] [phone] Phone: tel: fax: Referral ID Status Reason Start Date Expiration Date V isits Requested Visits Authorized [id number] Closed Specialty Services Required 09/06/2024 03/08/2026 1 1 Scheduling Instructions SCLC with brain mets s/p crani Reason for Visit * Reason Comments Follow-up * Consultation (Routine) - Closed Specialty Diagnoses / Procedures Referred By Contnida carreon Referred To Contact Radiation Oncology Diagnoses Brain mass Litzy Dacosta DO [address] [place] [address] Phone: tel: fax: [facility] [id number] [place] [address] Phone: tel: fax: Referral ID Status Reason Start Date Expiration Date V isits Requested Visits Authorized [id number] Closed Specialty Services Required 09/06/2024 03/08/2026 1 1 Encounter Details Date Type Department Care Team (Latest Contact Info) Description 09/26/2024 12:55 PM EDT - 09/26/2024 3:59 PM EDT Hospital Encounter [facility] 800 [facility] [place] [address] Joshua Martínez MD 800 [facility] [address] [place] [phone] 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CMS/HCC) (Primary Dx); Brain [...] place to sleep or slept in a group home (including now)? No 11/20/2023 PHQ-9 Answer Date [...] any time in the past 12 [facility], were you homeless or living in a group home (including now)? No 09/06/2024 CAGE ASSESSMENT Answer [...] drink first t laurie in the morning (EYE-REFLOW OPERATOR) to steady your nerves or to get rid of a hangover? 0 11/19/2023 CAGE Questionnaire Score 0 024 Utilities Answer Date Recorded In the past 12 months has e [employer], gas, oil, or water [employer] threatened to shut off services in your [...] controlled-release Take 1 tablet by mouth Daily. empagliflozin (Jardiance) 25 MG Take 1 tablet by mouth daily. 5 Xarelto 20 MG tablet Take 1 tablet by mouth every evening. 5 ferrous sulfate 325 (65 Fe) MG tablet Take 1 tablet by mouth Daily. 08/23/2024 5 Accu-Chek Softclix Lancets lancets USE TO TEST BLOOD SUGAR 3 TIMES EACH DAY 09/01/2024 5 Alcohol Swabs (Easy Touch Alcohol Prep Medium) 70 % pads 09/19/2024 02 5 B-D UF III MINI PEN NEEDLES 31G X 5 MM [facility] 09/19/2024 5 benzonatate (Tessalon) 200 MG capsule Take 1 capsule by mouth 3 times a day as needed for cough. 5 Blood Glucose Monitoring Suppl (SolePower Verio Flex System) w/Device kit 09/19/202410/16 5 carvedilol (Coreg) 12.5 MG tablet Take 1 tablet by mouth 2 times a day with meals. 5 ciclopirox (Penlac) 8 % solution Apply over affected nail fold daily. 5 Continuous Glucose Sensor (Dexcom G6 Sensor) [facility] USE DIRECTED TO MEASURE BLOOD SUGAR. REPLACE SENSOR EVERY 10 DAYS 09/01/2024 5 dexamethasone (Decadron) 2 MG tablet Take 2 tablets by mouth every 8 hours for 4 days, THEN 2 tablets every 12 hours for 4 days, THEN 1 tablet every 12 hours. 09/09/2024 5 FREESTYLE LITE test strip USE TO TEST BLOOD SUGAR 3 TIMES EACH DAY AND NEEDED 09/01/2024 5 gabapentin (Neurontin) 600 MG tablet Take 1 tablet by mouth 4 times a day. 5 insulin glargine-yfgn 100 UNIT/ML injection vial Inject 45 Units under the skin nightly. Can be adjusted per the MD at [facility] 09/09/2024 5 insulin lispro (Admelog, HumaLOG) 100 UNIT/ML injection pen 09/19/2024 5 Insulin Lispro (Admelog, HumaLOG) 100 UNIT/ML injection vial Inject 15 Units under the skin 3 times a day with meals. Can be adjusted per the MD at [facility] 09/09/2024 5 Lantus SoloStar 100 UNIT/ML injection [...] Take 1 tablet by mouth nightly. 5 documented as of this encounter Miscellaneous [...] over the preceding 5-6 months, prompting evaluationby logistics account manager Dr. Quispe. Given her significant smoking history, a screening [...] rather than PCI. She presented to the [facility] on 08/31/2024 with new-onset right lower extremity [...] Social Connections: Low Risk (05/26/2023) Received from [facility] [employer] Family and Community Support Help with Day [...] SURGERY TUBAL LIGATION N/A Tubal Ligation from [employer] TYMPANOSTOMY TUBE PLACEMENT N/A Ear Surgery Eustachian Tube from [employer] [3] Family History Problem Relation Name Age [...] MINI PEN NEEDLES 31G X 5 MM [facility] Blood Glucose Monitoring Suppl (SolePower Verio Flex System) w/Device kit Gnadelx-Fpvybxuhpyx-Ndnhcseqxp (Breztri Aerosphere) 160-9-4.8 MCG/ACT aerosol Inhale 2 [...] daily. Continuous Glucose Sensor (Dexcom G6 Sensor) [facility] USE DIRECTED TO MEASURE BLOOD SUGAR. REPLACE [...] Can be adjusted per the MD at [facility] Insulin Lispro (Admelog, HumaLOG) 100 UNIT/ML injection vial Inject 15 Units under the skin 3 timesa day with meals. Can be adjusted per the MD at [facility] Lantus SoloStar 100 UNIT/ML injection pen levETIRAcetam [...] Upcoming Encounters Date Type Department Care Team ([facility] st Contact Info) Description 11/29/2024 10:30 AM EDT Clinical Support [facility] Res[facility] 800 [facility], 2nd [place] [phone] 11/29/2024 11:00 AM EDT Office Visit [facility] Res[facility] 800 [facility], [address]nd [place] [address] Satnam Colvin MD 800 [facility] [address] [place] [phone] 11/29/2024 12:30 PM EDT Appointment [facility] 1 [address] [place] [phone] 11/30/2024 1:30 PM EDT Appointment [facility] 1 [address] [place] [address] 12/01/2024 2:00 PM EDT Appointment [facility] 1 [address] [place] [phone] 12/06/2024 11:40 AM EDT Appointment [facility] 800 [facility]. [id number] [place] [phone] Haven Blum, BULB GRADER 800 [facility] [address] [place] [address] 01/19/2025 9:30 AM EDT Appointment [facility] S Radiology [address], 1st [place] [phone] 01/19/2025 10:45 AM EDT Office Visit [place] [facility] [address], [address]st [place] [address] Abhilash Bangura MD [address] [place] [address] 03/08/2025 1:00 PM EDT Office Visit [facility] Wenceslao [address] [place] [address] Teresita Oconnell MD [address] [place] [address] Scheduled Orders Name Type Priority [...] documented as of this encounter Care Teams Emergency Department Clinician Relationship Specialty Start Date End Date Laurie Gutierrez MD [address] [place] [address] PCP - General 12/09/23 Joshua Martínez MD [address] [place] [phone] Consulting Physician Radiation Oncology 09/19/24 documented as of this encounter
--- OUTSIDE RECORDS SUMMARY | 2024-09-26 16:00 | XMS_ITS | Encounter Summary ---
Author Organization Healthcare Address [address] [place] [address] Care Team Providers Care Residential Roofer Helper Name Role Phone Laurie Gutierrez MD Primary Care Provider [phone] Joshua Martínez MD Unavailable Encounter Details Date Type Department Care Team (Latest Contact Info) Description 09/26/2024 4:00 PM EDT - 09/26/2024 11:59 PM EDT Hospital Encounter [facility] Radiation [id number] [place] [address] Discharge Disposition: Still a Patient 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 [...] place to sleep or slept in a skilled nursing (including now)? No 11/20/2023 PHQ-9 Answer Date [...] time in the past 12 m [facility], were you homeless or living in a skilled nursing (including now)? No 09/06/2024 CAGE ASSESSMENT Answer [...] drink first t laurie in the morning (EYE-FLIGHT CONTROL SPECIALIST) to steady your nerves or to get rid of a hangover? 0 11/19/2023 CAGE Questionnaire Score 0 024 Utilities Answer Date Recorded In the past 12 months has e [employer], oil, or water [employer] threatened to shut off services in your home? No 09/06/2024 Comments No Sex and Gender Information Value Date Recorded Sex Assigned at Not on file Legal Sex Female 8:32 PM EDT Gender Identity Not on file Sexual Orientation Not on file documented as of this encounter Medications at Time of Discharge [...] MINI PEN NEEDLES 31G X 5 MM [facility] 09/19/2024 5 benzonatate (Tessalon) 200 MG capsule Take 1 capsule by mouth 3 times a day as needed for cough. 5 Blood Glucose Monitoring Suppl ([employer] Verio Flex System) w/Device kit 09/19/202410/16 carvedilol (Coreg) 12.5 MG tablet Take 1 tablet by mouth 2 times a day with meals. 5 ciclopirox (Penlac) 8 % solution Apply over affected nail fold daily. Continuous Glucose Sensor (Dexcom G6 Sensor) [facility] USE DIRECTED TO MEASURE BLOOD SUGAR. REPLACE [...] Can be adjusted per the MD at [facility] 09/09/2024 5 insulin lispro (Admelog, HumaLOG) 100 UNIT/ML injection pen 09/19/2024 5 Insulin Lispro (Admelog, HumaLOG) 100 UNIT/ML injection vial Inject 15 Units under the skin 3 times a day with meals. Can be adjusted per the MD at [facility] 09/09/2024 5 Lantus SoloStar 100 UNIT/ML [...] nightly. 5 documented as of this encounter Plan of Treatment Upcoming Encounters Date Type Department Care Team ([facility] st Contact Info) Description 11/29/2024 10:30 AM EDT Clinical Support [facility] Head[facility] Neck [facility] Respiratory 800 [facility], [address]nd [place] [address] 11/29/2024 11:00 AM EDT Office Visit [facility] Head[facility] Neck [facility] Respiratory 800 [facility] [address] [place] [address] Satnam Colvin MD 800 [facility] [address] [place] [address] 11/29/2024 12:30 PM EDT Appointment [facility] 1 [address] [place] [address] 11/30/2024 1:30 PM EDT Appointment [facility] 1 [address] [place] [address] 12/01/2024 2:00 PM EDT Appointment [facility] 1 [address] [place] [address] 12/06/2024 11:40 AM EDT Appointment [facility] Radiation 800 [facility]. [id number] [place] [address] Haven Blum, HOT DIMPLING MACHINE OPERATOR [address] [place] [address] 01/19/2025 9:30 AM EDT Appointment [facility] S Radiology [address], [address]st [place] [address] 01/19/2025 10:45 AM EDT Office Visit [place] [facility] [address], [address] [place] [address] Abhilash Bangura MD [address] [place] [address] 03/08/2025 1:00 PM EDT Office Visit [facility] [place] [address] [place] [address] Teresita Oconnell MD [address] [place] [address] documented as of this encounter Visit Diagnoses Not on filedocumented in this encounter Additional Health Concerns Assessment Noted Time PHQ-9 Depression Total Score: 0 09/01/19 25 3:26 PM EDT A fall risk assessment has been complete d for the patient 09/26/2024 1:31 PM EDT A Body Mass Index follow-up plan has been documented for the patient 09/22/2024 3:08 PM EDT documented as of this encounter Care Teams Residential Roofer Helper Relationship Specialty Start Date End Date Laurie Gutierrez MD [address] [place], [place] [phone] PCP - General 12/09/23 Joshua Martínez MD [address] [place] [address] Consulting Physician Radiation Oncology 09/19/24 documented as of this encounter
--- OUTSIDE RECORDS SUMMARY | 2024-09-26 16:00 | XMS_ITS | Encounter Summary ---
Author Organization Healthcare Address [address] [place] [address] Care Team Providers Care Fire Extinguisher Repairer Inspector Name Role Phone Laurie Gutierrez MD Primary Care Provider Joshua Martínez MD Unavailable Encounter Details Date Type Department Care Team (Latest Contact Info) Description 09/26/2024 4:00 PM EDT - 09/26/2024 11:59 PM EDT Hospital Encounter [facility] [id number] [place] [address] Discharge Disposition: Still a Patient 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 [...] place to sleep or slept in a chcf (including now)? No 11/20/2023 PHQ-9 Answer Date [...] any time in the past 12 m [facility], were you homeless or living in a chcf (including now)? No 09/06/2024 CAGE ASSESSMENT Answer [...] drink first t laurie in the morning (EYE-GUINEA PIG BREEDER) to steady your nerves or to get rid of a hangover? 0 11/19/2023 CAGE Questionnaire Score 0 024 Utilities Answer Date Recorded In the past 12 months has e [email or web address], [employer], oil, or water [employer] threatened to shut off services in your [...] NEEDLES 31G X 5 MM misc 09/19/2024 benzonatate (Tessalon) 200 MG capsule Take 1 capsule by mouth 3 times a day as needed for cough. Blood Glucose Monitoring Suppl ([employer] Verio Flex System) w/Device kit 09/19/202410/16 carvedilol (Coreg) 12.5 MG tablet Take 1 tablet by mouth 2 times a day with meals. ciclopirox (Penlac) 8 % solution Apply over affected nail fold daily. Continuous Glucose Sensor (Dexcom G6 Sensor) [facility] USE DIRECTED TO MEASURE BLOOD SUGAR. REPLACE SENSOR EVERY 10 DAYS 09/01/2024 dexamethasone (Decadron) 2 MG tablet Take 2 tablets by mouth every 8 hours for 4 days, THEN 2 tablets every 12 hours for 4 days, THEN 1 tablet every 12 hours. 09/09/2024 empagliflozin (Jardiance) 25 MG Take 1 tablet by mouth daily. 5 FREESTYLE LITE test strip USE TO TEST BLOOD SUGAR 3 TIMES EACH DAY AND NEEDED 09/01/2024 gabapentin (Neurontin) 600 MG tablet Take 1 tablet by mouth 4 times a day. insulin glargine-yfgn 100 UNIT/ML injection vial Inject 45 Units under the skin nightly. Can be adjusted per the MD at [facility] 09/09/2024 5 insulin lispro (Admelog, HumaLOG) 100 UNIT/ML injection pen 09/19/2024 5 Insulin Lispro (Admelog, HumaLOG) 100 UNIT/ML injection vial Inject 15 Units under the skin 3 times a day with meals. Can be adjusted per the MD at [facility] 09/09/2024 5 Lantus SoloStar 100 UNIT/ML [...] evening. 5 documented as of this encounter Plan of Treatment Upcoming Encounters Date Type Department Care Team ([facility] st Contact Info) Description 11/29/2024 10:30 AM EDT Clinical Support [facility] Head[facility] Neck & Respiratory 800 [facility], 2nd [place] [address] 11/29/2024 11:00 AM EDT Office Visit [facility] Head[facility] Neck & Respiratory 800 [facility], [address]nd [place] [address] Satnam Colvin MD 800 [facility] [address] [place] [address] 11/29/2024 12:30 PM EDT Appointment [facility] 1 [address] [place] [address] 11/30/2024 1:30 PM EDT Appointment [facility] 1 [address] [place] [address] 12/01/2024 2:00 PM EDT Appointment [facility] 1 [address] [place] [address] 12/06/2024 11:40 AM EDT Appointment [facility] Radiation 800 [facility]. [id number] [place] [address] Haven Blum, CHART PICKER [address] [place] [address] 01/19/2025 9:30 AM EDT Appointment [facility] S Radiology [address], 1st [place] [address] 01/19/2025 10:45 AM EDT Office Visit [place] [facility] [address], 1st [place] [address] Abhilash Bangura MD [address] [place] [address] 03/08/2025 1:00 PM EDT Office Visit [facility] [address] [place] [address] Teresita Oconnell MD [address] [place] [address] documented as of this encounter [...] documented as of this encounter Care Teams Fire Extinguisher Repairer Inspector Relationship Specialty Start Date End Date Laurie Gutierrez MD [address] [place], [place] [phone] PCP - General 12/09/23 Joshua Martínez MD [address] [place] [address] Consulting Physician Radiation Oncology 09/19/24 documented as of this encounter
--- OUTSIDE RECORDS SUMMARY | 2024-10-03 10:06 | XMS_ITS | Encounter Summary ---
Author Organization [facility] Address [address] [place] [address] Care Team Providers Care Soft Work Cigar Machine Operator Name Role Phone Laurie Gutierrez MD Primary Care Provider [phone] Joshua Martínez MD Unavailable Reason for Referral * Radiation Therapy (Routine) - Authorized Specialty Diagnoses / Procedures Referred By Contac t Referred To Contact Radiation Oncology Diagnoses 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CMS/HCC) Procedures Rad Onc Intent to Treat Joshua Martínez MD [address] [address] Phone: tel: fax: [facility] [address] [address] Phone: tel: fax: Referral ID Status Reason Start Date Expiration Date Visits Requested Visits Authorized [id number] Authorized Perform Procedure 09/30/2024 01/15/2025 10 10 Reason for Visit * Radiation Therapy (Routine) - Authorized Specialty Diagnoses / Procedures Referred By Contac t Referred To Contact Radiation Oncology Diagnoses 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CMS/HCC) Procedures Rad Onc Intent to Treat Joshua Martínez MD [address] [address] Phone: tel: fax: [facility] [address] [address] Phone: tel: fax: Referral ID Status Reason Start Date Expiration Date Visits Requested Visits Authorized [id number] Authorized Perform Procedure 09/30/2024 01/15/2025 10 10 Encounter Details Date Type Department Care Team (Latest Contact Info) Description 10/03/2024 10:06 AM EDT - 10/03/2024 11:59 PM EDT Hospital Encounter [facility] Radiation [id number] [place] [address] 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CMS/HCC) Discharge Disposition: Still a Patient 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 [...] afraid of your partner or ex-partner? No 10/14/2024 Within the last year, have y ou been humiliated or emotionally abused in other ways by your partner or ex-partner? No Within the last year, have y ou been kicked, hit, slapped, or otherwise physically hurt by your partner or ex-partner? No 10/14/2024 Within the last year, have y ou been raped or forced to have any kind of sexual activity by your partner or ex-partner? No 10/14/2024 PHQ-2 Answer Date Recorded Patient Health Questionnaire-2 Score 0 08/31/2024 Hunger Vital Sign Answer Date Recorded Within the past 12 months, y ou worried that your food would run out before you got the money to buy more. Never true 10/15/19 25 Within the past 12 months, t he food you bought just didn't last and you didn't have money to get more. Never true 10/14/2024 PRAPARE - Transportation Answer Date Re corded In the past 12 months, has l ack of transportation kept you from medical appointments or from getting medications? No 09/17 In the past 12 months, has l ack of transportation kept you from meetings, work, or from getting things needed for daily living? No 10/14/2024 Housing Stability Vital Sign Answer Gregor e [...] place to sleep or slept in a penitentiary (including now)? No 11/20/2023 PHQ-9 Answer Date Recorded Patient Health Questionnaire-9 Score 0 08/31/2024 Housing Stability Vital Sign Answer Gregor e Recorded In the last 12 months, was t here a time when you were not able to pay the mortgage or rent on time? No 10/14/2024 Number of Times Moved in the Last Year Not on fi le 10/14/2024 At any time in the past 12 m [facility], were you homeless or living in a penitentiary (including now)? No 10/14/2024 CAGE ASSESSMENT Answer Date Recorded Cage unable [...] drink first t laurie in the morning (EYE-MANAGER DATABASE) to steady your nerves or to get rid of a hangover? 0 11/19/2023 CAGE Questionnaire Score 0 024 Utilities Answer Date Recorded In the past 12 months has th e electric, gas, oil, or water company threatened to shut off services in your home? No 10/14/2024 Comments No Sex and Gender Information Value Date Recorded Sex Assigned at Not on file Legal Sex Female 8:32 PM EDT Gender Identity Not on file Sexual Orientation Not on file documented as of this encounter Functional Status * Calculated C-SSRS Risk Score (Lifetime/Recent) Answer Date of Assessment Author No Risk Indicated 10/13/2024 8:00 AM EDT Zhane Rubio * Question Answer Date of Assessment Author 1. Wish to be (Past 1 Month) No 10/13/2024 8:00 AM EDT Ian Freeman 2. Non-Specific Active Suicidal Thoughts (Past 1 Month) No 10/13/2024 8:00 AM EDT Ian Freeman 6. Suicidal Behavior (Lifetime) No 10/13/2024 8:00 AM EDT Ian Freeman documented as of this encounter Medications at [...] for cough. 5 Blood Glucose Monitoring Suppl ([employer] Verio Flex System) w/Device kit 09/19/202410/16 5 carvedilol (Coreg) 12.5 MG tablet Take 1 tablet by mouth 2 times a day with meals. 5 ciclopirox (Penlac) 8 % solution Apply over affected nail fold daily. 5 Continuous Glucose Career Professional (Dexcom G7 Career Professional) device USE TO MEASURE BLOOD SUGAR DIRECTED 09/29/2024 5 Continuous Glucose Sensor (Dexcom G6 Sensor) [facility] USE DIRECTED TO MEASURE BLOOD [...] Can be adjusted per the MD at [facility] 09/09/2024 5 insulin lispro (Admelog, HumaLOG) 100 UNIT/ML injection pen 09/19/2024 5 Insulin Lispro (Admelog, HumaLOG) 100 UNIT/ML injection vial Inject 15 Units under the skin 3 times a day with meals. Can be adjusted per the MD at [facility] 09/09/2024 Lantus SoloStar 100 UNIT/ML injection pen 09/19/2024 levETIRAcetam (Keppra) 500 MG tablet Take 1 [...] Upcoming Encounters Date Type Department Care Team ([facility] st Contact Info) Description 11/29/2024 10:30 AM EDT Clinical Support [facility] Head[facility] Neck & Respiratory [address] [address] 11/29/2024 11:00 AM EDT Office Visit Pav [facility] Head, Neck & Respiratory [address] [address] Satnam Colvin MD 800 [facility] Nuria Degroot [address] [address] 11/29/2024 12:30 PM EDT Appointment [facility] 1 [address] [place] [address] 11/30/2024 1:30 PM EDT Appointment [facility] 1 [address] [place] [address] 12/01/2024 2:00 PM EDT Appointment [facility] 1 [address] [place] [address] 12/06/2024 11:40 AM EDT Appointment [facility] Radiation [id number] [place] [address] Haven Blum, SHARDA [address] [place] [address] 01/19/2025 9:30 AM EDT Appointment [facility] S Radiology [address], [address]st [place] [address] 01/19/2025 10:45 AM EDT Office Visit [place] [facility] [address], [address]st [place] [address] Abhilash Bangura MD [address] [place] [address] 03/08/2025 1:00 PM EDT Office Visit [facility] [place] [address] [place] [address] Teresita Oconnell MD [address] [place] [address] Scheduled Orders Name Type Priority Associated Diagnoses Orde r Schedule Rad Onc Intent to Treat Radiation Oncology Routine 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CMS/HCC) Once for 1 Occurrences starting 10/12/2024 until 10/12/2024 documented as of this encounter Visit Diagnoses Diagnosis 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CMS/HCC) Secondary malignant neoplasm of brain and spinal [...] documented as of this encounter Care Teams Soft Work Cigar Machine Operator Relationship Specialty Start Date End Date Laurie Gutierrez MD [address] [place] [address] PCP - General 12/09/23 Joshua Martínez MD [address] [place] [phone] Consulting Physician Radiation Oncology 09/19/24 documented as of this encounter
--- OUTSIDE RECORDS SUMMARY | 2024-10-03 10:06 | XMS_ITS | Encounter Summary ---
Author Organization [facility] Address [address] [place] [address] Care Team Providers Care Shank Boner Name Role Phone Laurie Gutierrez MD Primary Care Provider [phone] Joshua Martínez MD Unavailable Reason for Referral * Radiation Therapy (Routine) - Authorized Specialty Diagnoses / Procedures Referred By Contac t Referred To Contact Radiation Oncology Diagnoses 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CMS/HCC) Procedures Rad Onc Intent to Treat Joshua Martínez MD [address] [address] Phone: tel: fax: [facility] [address] [address] Phone: tel: fax: Referral ID Status Reason Start Date Expiration Date Visits Requested Visits Authorized [id number] Authorized Perform Procedure 09/30/2024 01/15/2025 10 10 Reason for Visit * Radiation Therapy (Routine) - Authorized Specialty Diagnoses / Procedures Referred By Contac t Referred To Contact Radiation Oncology Diagnoses 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CMS/HCC) Procedures Rad Onc Intent to Treat Joshua Martínez MD [address] [address] Phone: tel: fax: [facility] [address] [address] Phone: tel: fax: Referral ID Status Reason Start Date Expiration Date Visits Requested Visits Authorized [id number] Authorized Perform Procedure 09/30/2024 01/15/2025 10 10 Encounter Details Date Type Department Care Team (Latest Contact Info) Description 10/03/2024 10:06 AM EDT - 10/03/2024 11:59 PM EDT Hospital Encounter [facility] [id number] [place] [address] 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CMS/HCC) Discharge Disposition: Still [...] place to sleep or slept in a usp (including now)? No 11/20/2023 PHQ-9 Answer Date [...] any time in the past 12 m [facility], were you homeless or living in a usp (including now)? No 10/14/2024 CAGE ASSESSMENT Answer [...] drink first t laurie in the morning (EYE-OUTREACH DIRECTOR) to steady your nerves or to get [...] Take 1 tablet by mouth Daily. 08/23/2024 Accu-Chek Softclix Lancets lancets USE TO TEST BLOOD SUGAR 3 TIMES EACH DAY 09/01/2024 Alcohol Swabs (Easy Touch Alcohol Prep Medium) 70 % pads 09/19/2024 02 5 B-D UF III MINI PEN NEEDLES 31G X 5 MM [facility] 09/19/2024 benzonatate (Tessalon) 200 MG capsule Take 1 capsule by mouth 3 times a day as needed for cough. Blood Glucose Monitoring Suppl (WebLinc Verio Flex System) w/Device kit 09/19/202410/16 carvedilol (Coreg) 12.5 MG tablet Take 1 tablet by mouth 2 times a day with meals. ciclopirox (Penlac) 8 % solution Apply over affected nail fold daily. Continuous Glucose Manager R D (Dexcom G7 Manager R D) device USE TO MEASURE BLOOD SUGAR DIRECTED 09/29/2024 Continuous Glucose Sensor (Dexcom G6 Sensor) [facility] USE DIRECTED TO MEASURE BLOOD SUGAR. REPLACE [...] Can be adjusted per the MD at [facility] 09/09/2024 5 insulin lispro (Admelog, HumaLOG) 100 UNIT/ML injection pen 09/19/2024 Insulin Lispro (Admelog, HumaLOG) 100 UNIT/ML injection vial Inject 15 Units under the skin 3 times a day with meals. Can be adjusted per the MD at [facility] 09/09/2024 5 Lantus SoloStar 100 UNIT/ML injection pen 09/19/2024 levETIRAcetam (Keppra) 500 MG tablet Take 1 tablet by mouth 2 times a day. 09/09/2024 ondansetron (Zofran) 8 MG tablet Take 1 tablet by mouth every 8 hours as needed for nausea or vomiting. 5 ondansetron ODT (Zofran-ODT) 4 MG disintegrating tablet 09/19/2024 polyethylene glycol (Miralax) 17 g packet Take [...] Upcoming Encounters Date Type Department Care Team ([facility] st Contact Info) Description 11/29/2024 10:30 AM EDT Clinical Support [facility] [address] [address] 11/29/2024 11:00 AM EDT Office Visit [facility] [address] [phone] Satnam Colvin MD 800 [facility] Nuria Degroot [address] [address] 11/29/2024 12:30 PM EDT Appointment [facility] [address] [place] [address] 11/30/2024 1:30 PM EDT Appointment [facility] [address] [place] [address] 12/01/2024 2:00 PM EDT Appointment [facility] [address] [place] [phone] 12/06/2024 11:40 AM EDT Appointment [facility] [id number] [place] [phone] Haven Blum, SHARDA [address] [place] [phone] 01/19/2025 9:30 AM EDT Appointment [facility] [address] [place] [address] 01/19/2025 10:45 AM EDT Office Visit [place] [facility] [address], [address] [place] [address] Abhilash Bangura MD [address] [place] [address] 03/08/2025 1:00 PM EDT Office Visit [facility] Toney Wenceslao [address] [place] [phone] Teresita Oconnell MD [address] [place] [address] Scheduled Orders Name Type Priority [...] documented as of this encounter Care Teams Shank Boner Relationship Specialty Start Date End Date Laurie Gutierrez MD [address] [place] [phone] PCP - General 12/09/23 Joshua Martínez MD [address] [place] [phone] Consulting Physician Radiation Oncology 09/19/24 documented as of this encounter
--- OUTSIDE RECORDS SUMMARY | 2024-10-04 10:00 | XMS_ITS | Encounter Summary ---
Author Organization Healthcare Address [address] [place] [address] Care Team Providers Care Air Brake Worker Name Role Phone Laurie Gutierrez MD Primary Care Provider [phone] Joshua Martínez MD Unavailable Reason for Visit * Reason Comments Labs Peripheral stick, le ft arm Encounter Details Date Type Department Care Team (Latest Contact Info) Description 10/04/2024 10:00 AM EDT Clinical Support Pav [facility] Head[facility] Neck & Respiratory [address] [place] [address] Extensive stage primary small cell carcinoma of [...] time in the past 12 m [facility], were you homeless or living in a [...] drink first t laurie in the morning (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-CAFE ASSISTANT) to steady your nerves or to get [...] Upcoming Encounters Date Type Department Care Team ([facility] st Contact Info) Description 11/29/2024 10:30 AM EDT Clinical Support Pav [facility] Head[facility] Neck [facility] Respiratory [address] [facility], [address]nd [place] [address] 11/29/2024 11:00 AM EDT Office Visit Pav [facility] Head[facility] Neck & Respiratory [address] [facility] [address] [place] [address] Satnam Colvin MD 800 [facility] [address] [place] [address] 11/29/2024 12:30 PM EDT Appointment [facility] 1 [address] [place] [address] 11/30/2024 1:30 PM EDT Appointment [facility] 1 [address] [place] [address] 12/01/2024 2:00 PM EDT Appointment [facility] 1 [address] [place] [address] 12/06/2024 11:40 AM EDT Appointment [facility] CC Radiation [address] [facility]. [id number] [place] [address] Haven Blum, [employer]ROLE[employer] REFINERY [employer]ORER [id number] [place] [address] 01/19/2025 9:30 AM EDT Appointment [facility] S Radiology [address], [address]st [place] [address] 01/19/2025 10:45 AM EDT Office Visit [place] [facility] [address], [address]st [place] [address] Abhilash Bangura MD [address] [place] [address] 03/08/2025 1:00 PM EDT Office Visit [facility] [place] [facility] [address] [place] [address] Teresita Oconnell MD [address] [place] [address] documented as of this encounter [...] - 4.20 uIU/mL 10/04/2024 10:29 AM EDT [facility] Blood Venous blood specimen / Unknown Venipuncture / Unknown 10/04/2024 9:43 AM EDT 10/04/2024 9:55 AM EDT us Satnam Dunne MD LAB BLOOD ORDERABLES Fi nal Result Performing Organization Address [facility]/ZIP Co de Phone Number [facility] [address] [place] [address] * (ABNORMAL) Magnesium (10/04/2024 9:43 AM EDT) Magnesium, Plasma 1.5(L) 1.9 - 2.4 mg/dL 10/04/2024 10:29 AM EDT [facility] Blood Venous blood specimen / Unknown Venipuncture / Unknown 10/04/2024 9:43 AM EDT 10/04/2024 9:55 AM EDT Satnam Dunne MD LAB BLOOD ORDERABLES Fi nal Result Performing Organization Address [facility] Co de Phone Number [facility] [address] [place] [address] * (ABNORMAL) Comprehensive metabolic panel (10/04/2024 9:43 AM EDT) Glucose, Plasma 263(H) 74 - 99 mg/dL 10/04/2024 10:29 AM EDT [facility] BUN, Plasma 22 8 - 23 mg/dL 10/04/2024 10:29 AM EDT [facility] Creatinine, Plasma 0.73 0.60 - 1.10 mg/dL 10/04/2024 10:29 AM EDT [facility] BUN/Creatinine Ratio 30 10/04/2024 10:29 AM EDT [facility] Sodium, Plasma 140 136 - 145 mmol/L 10/04/2024 10:29 AM EDT [facility] Potassium, Plasma 5.1(H) 3.6 - 4.9 mmol/L 10/04/2024 10:29 AM EDT [facility] Chloride, Plasma 99 97 - 107 mmol/L 10/04/2024 10:29 AM EDT [facility] CO2, Plasma 28 22 - 29 mmol/L 10/04/2024 10:29 AM EDT [facility] Anion Gap 13 6 - 16 mmol/L 10/04/2024 10:29 AM EDT [facility] Total Calcium, Plasma 8.7(L) 8.9 - 10.2 mg/dL 10/04/2024 10:29 AM EDT [facility] Total Protein 6.1(L) 6.3 - 7.9 g/dL 10/04/2024 10:29 AM EDT [facility] Albumin, Plasma 3.5 3.5 - 5.2 g/dL 10/04/2024 10:29 AM EDT [facility] AST, Plasma 22 10 - 35 U/L 10/04/2024 10:29 AM EDT [facility] Comment:Hemolyzed, result ma y be falsely increased. ALT, Plasma 39(H) 10 - 35 U/L 10/04/2024 10:29 AM EDT [facility] Alkaline Phosphatase, Plasma 111 46 - 142 U/L 10/04/2024 10:29 AM EDT [facility] Total Bilirubin, Plasma 0.4 0.2 - 1.1 mg/dL 10/04/2024 10:29 AM EDT [facility] eGFRcr 92.5 mL/min/1.7 3m*2 10/04/2024 10:29 AM EDT [facility] Comment:Reported eGFRcr in m L/min/1.73m2 is based the CKD-EPI 2020 equation that does not use a race coefficient. Blood Venous blood specimen / Unknown Venipuncture / Unknown 10/04/2024 9:43 AM EDT 10/04/2024 9:55 AM EDT us Satnam Dunne MD LAB BLOOD ORDERABLES Fi nal Result [facility] [address] [place] [address] * (ABNORMAL) CBC and differential (10/04/2024 9:43 AM EDT) WBC Count 7.20 3.70 - 10.30 10*3/uL LAB HEMATOLOGY METHOD 10/04/2024 10:10 AM EDT [facility] RBC Count 3.95 3.90 - 5.20 10*6/uL LAB HEMATOLOGY METHOD 10/04/2024 10:10 AM EDT [facility] HGB 12.2 11.2 - 15.7 g/dL LAB HEMATOLOGY METHOD 10/04/2024 10:10 AM EDT [facility] HCT 38.8 34.0 - 45.0 % LAB HEMATOLOGY METHOD 10/04/2024 10:10 AM EDT [facility] Platelet Count 139(L) 155 - 369 10*3/uL LAB HEMATOLOGY METHOD 10/04/2024 10:10 AM EDT [facility] MCV 98 79 - 98 fL LAB HEMATOLOGY METHOD 10/04/2024 10:10 AM EDT [facility] MCH 30.9 26.0 - 32.0 pg LAB HEMATOLOGY METHOD 10/04/2024 10:10 AM EDT [facility] MCHC 31.4 30.7 - 35.5 g/dL LAB HEMATOLOGY METHOD 10/04/2024 10:10 AM EDT [facility] RDW 15.9(H) 11.5 - 14.5 % LAB HEMATOLOGY METHOD 10/04/2024 10:10 AM EDT [facility] MPV 9.6 8.8 - 12.5 fL LAB HEMATOLOGY METHOD 10/04/2024 10:10 AM EDT [facility] nRBC 0.3(H) <=0.0 per 100 WBCs LAB HEMATOLOGY METHOD 10/04/2024 10:10 AM EDT [facility] Differential Type Automated LAB HEMATOLOGY METHOD 10/04/2024 10:10 AM EDT [facility] Neutrophils % 76 % LAB HEMATOLOGY METHOD 10/04/2024 10:10 AM EDT [facility] Lymphocytes % 15 % LAB HEMATOLOGY METHOD 10/04/2024 10:10 AM EDT [facility] Monocytes % 4 % LAB HEMATOLOGY METHOD 10/04/2024 10:10 AM EDT [facility] Eosinophils % 0 % LAB HEMATOLOGY METHOD 10/04/2024 10:10 AM EDT [facility] Basophils % 0 % LAB HEMATOLOGY METHOD 10/04/2024 10:10 AM EDT [facility] Immature Granulocytes % 5 % LAB HEMATOLOGY METHOD 10/04/2024 10:10 AM EDT [facility] Neutrophils Absolute 5.44 1.60 - 6.10 10*3/uL LAB HEMATOLOGY METHOD 10/04/2024 10:10 AM EDT [facility] Lymphocytes Absolute 1.06(L) 1.20 - 3.90 10*3/uL LAB HEMATOLOGY METHOD 10/04/2024 10:10 AM EDT [facility] Monocytes Absolute 0.28(L) 0.30 - 0.90 10*3/uL LAB HEMATOLOGY METHOD 10/04/2024 10:10 AM EDT [facility] Eosinophils Absolute 0.02 0.00 - 0.50 10*3/uL LAB HEMATOLOGY METHOD 10/04/2024 10:10 AM EDT [facility] Basophils Absolute 0.03 0.00 - 0.10 10*3/uL LAB HEMATOLOGY METHOD 10/04/2024 10:10 AM EDT [facility] Immature Granulocytes Absolute 0.37(H) 0.00 - 0.06 10*3/uL LAB HEMATOLOGY METHOD 10/04/2024 10:10 AM EDT [facility] Blood Venous blood specimen / Unknown Venipuncture / Unknown 10/04/2024 9:43 AM EDT 10/04/2024 9:58 AM EDT Narrative [facility] - 10/04/2024 10:10 AM EDT Therapeutic decision making should be based on absolute values, rather than percentages. Satnam Dunne MD LAB BLOOD ORDERABLES Fi nal Result [facility] [address] [place] [address] documented in this encounter Visit Diagnoses Diagnosis [...] documented as of this encounter Care Teams Air Brake Worker Relationship Specialty Start Date End Date Laurie Gutierrez MD [address] [place] [phone] PCP - General 12/09/23 Joshau Martínez MD [address] [place] [address] Consulting Physician Radiation Oncology 09/19/24 documented as of this encounter
--- OUTSIDE RECORDS SUMMARY | 2024-10-04 10:00 | XMS_ITS | Encounter Summary ---
Author Organization Healthcare Address [address] [place] [address] Care Team Providers Care Playground Supervisor Name Role Phone Laurie Gutierrez MD Primary Care Provider [phone] Joshua Martínez MD Unavailable Reason for Visit * Reason Comments Labs Peripheral stick, le ft arm Encounter Details Date Type Department Care Team (Latest Contact Info) Description 10/04/2024 10:00 AM EDT Clinical Support Pav [facility] Head[facility] Neck [facility] Respiratory [address] [place] [address] Extensive stage primary small cell carcinoma of [...] place to sleep or slept in a fci (including now)? No 11/20/2023 PHQ-9 Answer Date [...] in the past 12 m [facility], were you homeless or living in a fci (including now)? No 09/06/2024 CAGE ASSESSMENT Answer [...] drink first t laurie in the morning (EYE-LAND LEVELER) to steady your nerves or to get [...] Upcoming Encounters Date Type Department Care Team ([facility] st Contact Info) Description 11/29/2024 10:30 AM EDT Clinical Support Pav [facility] Head[facility] Neck & Respiratory [address] [facility], [address]nd [place] [address] 11/29/2024 11:00 AM EDT Office Visit Pav CC Head[facility] Neck & Respiratory [address] [facility] [address] [place] [address] Satnam Colvin MD 800 [facility] [address] [place] [address] 11/29/2024 12:30 PM EDT Appointment [facility] 1 [address] [place] [address] 11/30/2024 1:30 PM EDT Appointment [facility] 1 [address] [place] [address] 12/01/2024 2:00 PM EDT Appointment [facility] 1 [address] [place] [address] 12/06/2024 11:40 AM EDT Appointment [facility] CC Radiation [address] [facility]. [id number] [place] [address] Haven Blum, PLY CUTTER [address] [place] [address] 01/19/2025 9:30 AM EDT Appointment [facility] S Radiology [address], [address] [place] [address] 01/19/2025 10:45 AM EDT Office Visit [place] [facility] [address], [address] [place] [address] Abhilash Bangura MD [address] [place] [address] 03/08/2025 1:00 PM EDT Office Visit [facility] Kasson Zavalla [address] [place] [address] Teresita Oconnell MD [address] [place] [address] documented as of this encounter [...] - 4.20 uIU/mL 10/04/2024 10:29 AM EDT [facility] Blood Venous blood specimen / Unknown Venipuncture / Unknown 10/04/2024 9:43 AM EDT 10/04/2024 9:55 AM EDT us Satnam Dunne MD LAB BLOOD ORDERABLES Fi nal Result Performing Organization Address [facility]/ZIP Co de Phone Number [facility] [address] [place] [address] * (ABNORMAL) Magnesium (10/04/2024 9:43 AM EDT) Magnesium, Plasma 1.5(L) 1.9 - 2.4 mg/dL 10/04/2024 10:29 AM EDT [facility] Blood Venous blood specimen / Unknown Venipuncture / Unknown 10/04/2024 9:43 AM EDT 10/04/2024 9:55 AM EDT Satnam Dunne MD LAB BLOOD ORDERABLES Fi nal Result Performing Organization Address [facility] Co de Phone Number [facility] [address] [place] [address] * (ABNORMAL) Comprehensive metabolic panel (10/04/2024 9:43 AM EDT) Glucose, Plasma 263(H) 74 - 99 mg/dL 10/04/2024 10:29 AM EDT [facility] BUN, Plasma 22 8 - 23 mg/dL 10/04/2024 10:29 AM EDT [facility] Creatinine, Plasma 0.73 0.60 - 1.10 mg/dL 10/04/2024 10:29 AM EDT [facility] BUN/Creatinine Ratio 30 10/04/2024 10:29 AM EDT [facility] Sodium, Plasma 140 136 - 145 mmol/L 10/04/2024 10:29 AM EDT [facility] Potassium, Plasma 5.1(H) 3.6 - 4.9 mmol/L 10/04/2024 10:29 AM EDT [facility] Chloride, Plasma 99 97 - 107 mmol/L 10/04/2024 10:29 AM EDT [facility] CO2, Plasma 28 22 - 29 mmol/L 10/04/2024 10:29 AM EDT [facility] Anion Gap 13 6 - 16 mmol/L 10/04/2024 10:29 AM EDT [facility] Total Calcium, Plasma 8.7(L) 8.9 - 10.2 mg/dL 10/04/2024 10:29 AM EDT [facility] Total Protein 6.1(L) 6.3 - 7.9 g/dL 10/04/2024 10:29 AM EDT [facility] Albumin, Plasma 3.5 3.5 - 5.2 g/dL 10/04/2024 10:29 AM EDT [facility] AST, Plasma 22 10 - 35 U/L 10/04/2024 10:29 AM EDT [facility] Comment:Hemolyzed, result ma y be falsely increased. ALT, Plasma 39(H) 10 - 35 U/L 10/04/2024 10:29 AM EDT [facility] Alkaline Phosphatase, Plasma 111 46 - 142 U/L 10/04/2024 10:29 AM EDT [facility] Total Bilirubin, Plasma 0.4 0.2 - 1.1 mg/dL 10/04/2024 10:29 AM EDT [facility] eGFRcr 92.5 mL/min/1.7 3m*2 10/04/2024 10:29 AM EDT [facility] Comment:Reported eGFRcr in m L/min/1.73m2 is based the CKD-EPI 2020 equation that does not use a race coefficient. Blood Venous blood specimen / Unknown Venipuncture / Unknown 10/04/2024 9:43 AM EDT 10/04/2024 9:55 AM EDT us Satnam Dunne MD LAB BLOOD ORDERABLES Fi nal Result [facility] [address] [place] [address] * (ABNORMAL) CBC and differential (10/04/2024 9:43 AM EDT) WBC Count 7.20 3.70 - 10.30 10*3/uL LAB HEMATOLOGY METHOD 10/04/2024 10:10 AM EDT [facility] RBC Count 3.95 3.90 - 5.20 10*6/uL LAB HEMATOLOGY METHOD 10/04/2024 10:10 AM EDT [facility] HGB 12.2 11.2 - 15.7 g/dL LAB HEMATOLOGY METHOD 10/04/2024 10:10 AM EDT [facility] HCT 38.8 34.0 - 45.0 % LAB HEMATOLOGY METHOD 10/04/2024 10:10 AM EDT [facility] Platelet Count 139(L) 155 - 369 10*3/uL LAB HEMATOLOGY METHOD 10/04/2024 10:10 AM EDT [facility] MCV 98 79 - 98 fL LAB HEMATOLOGY METHOD 10/04/2024 10:10 AM EDT [facility] MCH 30.9 26.0 - 32.0 pg LAB HEMATOLOGY METHOD 10/04/2024 10:10 AM EDT [facility] MCHC 31.4 30.7 - 35.5 g/dL LAB HEMATOLOGY METHOD 10/04/2024 10:10 AM EDT [facility] RDW 15.9(H) 11.5 - 14.5 % LAB HEMATOLOGY METHOD 10/04/2024 10:10 AM EDT [facility] MPV 9.6 8.8 - 12.5 fL LAB HEMATOLOGY METHOD 10/04/2024 10:10 AM EDT [facility] nRBC 0.3(H) <=0.0 per 100 WBCs LAB HEMATOLOGY METHOD 10/04/2024 10:10 AM EDT [facility] Differential Type Automated LAB HEMATOLOGY METHOD 10/04/2024 10:10 AM EDT [facility] Neutrophils % 76 % LAB HEMATOLOGY METHOD 10/04/2024 10:10 AM EDT [facility] Lymphocytes % 15 % LAB HEMATOLOGY METHOD 10/04/2024 10:10 AM EDT [facility] Monocytes % 4 % LAB HEMATOLOGY METHOD 10/04/2024 10:10 AM EDT [facility] Eosinophils % 0 % LAB HEMATOLOGY METHOD 10/04/2024 10:10 AM EDT [facility] Basophils % 0 % LAB HEMATOLOGY METHOD 10/04/2024 10:10 AM EDT [facility] Immature Granulocytes % 5 % LAB HEMATOLOGY METHOD 10/04/2024 10:10 AM EDT [facility] Neutrophils Absolute 5.44 1.60 - 6.10 10*3/uL LAB HEMATOLOGY METHOD 10/04/2024 10:10 AM EDT [facility] Lymphocytes Absolute 1.06(L) 1.20 - 3.90 10*3/uL LAB HEMATOLOGY METHOD 10/04/2024 10:10 AM EDT [facility] Monocytes Absolute 0.28(L) 0.30 - 0.90 10*3/uL LAB HEMATOLOGY METHOD 10/04/2024 10:10 AM EDT [facility] Eosinophils Absolute 0.02 0.00 - 0.50 10*3/uL LAB HEMATOLOGY METHOD 10/04/2024 10:10 AM EDT [facility] Basophils Absolute 0.03 0.00 - 0.10 10*3/uL LAB HEMATOLOGY METHOD 10/04/2024 10:10 AM EDT [facility] Immature Granulocytes Absolute 0.37(H) 0.00 - 0.06 10*3/uL LAB HEMATOLOGY METHOD 10/04/2024 10:10 AM EDT [facility] Blood Venous blood specimen / Unknown Venipuncture / Unknown 10/04/2024 9:43 AM EDT 10/04/2024 9:58 AM EDT Narrative [facility] - 10/04/2024 10:10 AM EDT Therapeutic decision making should be based on absolute values, rather than percentages. Satnam Dunne MD LAB BLOOD ORDERABLES Fi nal Result [facility] [address] [place] [address] documented in this encounter Visit Diagnoses Diagnosis [...] documented as of this encounter Care Teams Playground Supervisor Relationship Specialty Start Date End Date Laurie Gutierrez MD [address] [place] [id number] PCP - General 12/09/23 Joshua Martínez MD [address] [place] [address] Consulting Physician Radiation Oncology 09/19/24 documented as of this encounter
--- OUTSIDE RECORDS SUMMARY | 2024-10-04 10:40 | XMS_ITS | Encounter Summary ---
Author Organization Healthcare Address [address] 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 0 11/19/2023 CAGE Questionnaire Score 0 024 Utilities Answer Date Recorded In the past 12 months has th e Dodonation, gas, oil, or water REPP threatened to shut off services in your home? No 09/06/2024 Comments No Sex and Gender Information Value Date Recorded Sex Assigned at Not on file Legal Sex Female 8:32 PM EDT Gender Identity Not on file Sexual Orientation Not on file documented as of this encounter Last Filed Vital Signs Vital Sign Reading Time Taken Comments Blood Pressure 119/76 10/04/2024 9:23 AM EDT Pulse 78 10/04/2024 9:23 AM EDT Temperature 36.8 C (98.2 F) 10/04/2024 9:23 AM EDT Respiratory Rate 20 10/04/2024 9:23 AM EDT Oxygen Saturation 95% 10/04/2024 9:23 AM EDT Inhaled Oxygen Concentration - - Weight 117 kg (258 lb 13.1 oz) 10/04/2024 9:23 A M EDT Height 170.2 cm (5' 7.01 ) 10/04/2024 9:23 AM ED T Body Mass Index 40.53 10/04/2024 9:23 AM EDT documented in this encounter Miscellaneous Notes * Progress Notes - Rupa De Santiago, PharmD - 10/04/2024 10:40 AM EDT Pharmacy Hematology/Oncology Treatment Note Teresa iRvera is a 63 y.o. female with ES SCLC Cancer Staging No matching staging information was found for the patient. . Study Patient: no Treatment Plan reviewed for Carboplatin/Etoposide/Atezolizumab every 21 days. [x] Follow-Up Clinical Review for Cycle 1 Days 1-3 [] Follow-Up Clinical Review for Continuous Oral Therapy Interval History: 10/04/24: Ms. Rivera had a craniotomy on 08/31 and will begin carbo/etop/atezo today. Radiation oncology is planning on WBRT in 30gy/10fx. Magnesium is 1.5, so sent magnesium 400 mg BID and added electrolyte replacement protocol. Today's Wt: Wt Readings from Last 1 Encounters: 10/04/24 117 kg (258 lb 13.1 oz) Dosing Wt: 118 kg Dosing Ht: 170.2 cm DosingBSA: 2.26 m2 Recent Labs: Lab Results Component Value Date WBC 7.20 10/04/2024 HGB 12.2 10/04/2024 HCT 38.8 10/04/2024 MCV 98 10/04/2024 PLT 139 (L) 10/04/2024 Lab Results Component Value Date GLUCOSE 263 (H) 10/04/2024 CALCIUM 8.7 (L) 10/04/2024 NA 140 10/04/2024 K 5.1 (H) 10/04/2024 CO2 28 10/04/2024 CL 99 10/04/2024 BUN 22 10/04/2024 CREATININE 0.73 10/04/2024 Lab Results Component Value Date ALT 39 (H) 10/04/2024 AST 22 10/04/2024 ALKPHOS 111 10/04/2024 BILITOT 0.4 10/04/2024 Lab Results Component Value Date NEUTROABS 5.44 10/04/2024 Lab Results Component Value Date MG 1.5 (L) 10/04/2024 Lab Results Component Value Date TSH 0.90 10/04/2024 Lab Results Component Value Date URINEPRO Negative 08/31/2024 Vitals: Visit Vitals BP 119/76 (BP Location: Right arm) Pulse 78 Temp 36.8 ??C (98.2 ??F) (Oral) Resp 20 Other Relevant Monitoring: for carboplatin: AdjBW (BMI >25): 83.9 kg SCr: Results from last 7 days Lab Units 10/04/24 0943 CREATININE mg/dL 0.73 eCrCl: 104.4 ml/min Treatment/Therapy Plan: Carboplatin AUC 5 IV Day 1 Etoposide 100 mg/m2 (220 mg) IV Days 1-3 Atezolizumab 1875 mg subcutaneous Day 1 [x] No dose adjustments made Current Treatment Plan History: Carbo/Etop/Atezo C1: 10/04-10/06/24 Prior Treatment History: Craniotomy 08/31/24 Plan: Supportive care medications sent meds to chemo chair. Patient will return to clinic in 3 weeks. Will follow-up at that time. Pharmacist Attestation: Rupa De Santiago PharmD, [facility] Clinical Oncology Pharmacist * Progress Notes - Satnam Colvin MD - 10/04/2024 10:40 AM EDT Medical Oncology Clinic Note Patient Name: Teresa Rivera Date of : 1960 63 y.o. Referring Physician:No referring provider defined for this encounter. Encounter Date: 10/04/2024 Chief Complaint: Chief Complaint Patient presents with Follow-up History of present illness 63-year-old female with [...] a right-sided weakness. Has home physical therapy. Interval history Patient returns to clinic. Reports no new complaints. Doing well. No new onset weakness. No fevers or chills. Appetite is good. No worsening shortness of breath or chest pain. Current Treatment Regimen: Carbo etoposide with whole-brain radiation Current Treatment Plan History: Carbo/Etop/Atezo C1: 10/04-10/06/24 Oncology History: - initially diagnosed with [id number], stage IIIA limited stage of the right [...] this note. Vital Signs: Visit Vitals BP 119/76 (BP Location: Right arm) Pulse 78 Temp 36.8 ??C (98.2 ??F) (Oral) Resp 20 Physical Examination: GENERAL: no acute distress. SKIN: . No rashes or lesions. EYES: conjunctiva clear, ENT: intact, no apparent injury HEAD/NECK: neck supple RESPIRATORY: non-labored respirations CARDIOVASCULAR: no peripheral edema GASTROINTESTINAL: soft, non-tender, non-distended, MUSCULOSKELETAL: No significant muscle wasting noted NEUROLOGICAL: alert and oriented x3, no focal deficits PSYCHOLOGICAL: Normal mood. Labs, Imaging, Pathology: Lab Results Component Value Date WBC 7.20 10/04/2024 RBC 3.95 10/04/2024 HGB 12.2 10/04/2024 HCT 38.8 10/04/2024 MCV 98 10/04/2024 MCV 93 08/25/2013 MCHC 31.4 10/04/2024 RDW 15.9 (H) 10/04/2024 PLT 139 (L) 10/04/2024 MPV 9.6 10/04/2024 EOS 3 08/25/2013 Lab Results Component Value Date BUN 22 10/04/2024 CL 99 10/04/2024 NA 140 10/04/2024 K 5.1 (H) 10/04/2024 CA 9.6 08/25/2013 TP 6.1 (L) 10/04/2024 AST 22 10/04/2024 ALT 39 (H) 10/04/2024 I visualized the recent imaging and discussed [...] IV contrast, Omnipaque 300, [address] Chest and CT Abdomen/Pelvis protocol. Reformatted [...] palliative - Next Gen Sequencing: Not indicated currently - Regimen: Carbo etoposide with whole-brain radiation - I reviewed liver and renal function as well as bone marrow function in relationship to this patient's ability to tolerate systemic cancer treatment (and adjusted dosing and schedule based on their individual liver, renal and bone marrow function). I have personally calculated and ordered chemotherapy. - okay to proceed with day 1 cycle 1 - RTC day 1 of cycle 2 # Chemotherapy toxicity -no treatment yet. Previously [...] patients with cancer. MD GIGI Man [facility] HEAD, NECK & RESPIRATORY [address] [facility] [address] [facility]. [1] Past Medical History: Diagnosis Date Brain [...] SURGERY TUBAL LIGATION N/A Tubal Ligation from [employer] TYMPANOSTOMY TUBE PLACEMENT N/A Ear Surgery Eustachian Tube from [employer] [3] Family History Problem Relation Name Age [...] MINI PEN NEEDLES 31G X 5 MM [facility], , Disp: , Rfl: Blood Glucose Monitoring Suppl (Flat World EducationTouch Verio Flex System) w/Device kit, , Disp: , Rfl: Avkrcve-Wdmobmtbiqv-Gmftaznyoh (Breztri Aerosphere) 160-9-4.8 MCG/ACT aerosol, Inhale 2 [...] Rfl: Continuous Glucose Sensor (Dexcom G6 Sensor) [facility], USE DIRECTED TO MEASURE BLOOD SUGAR. REPLACE [...] Can be adjusted per the MD at [facility], Disp: , Rfl: Insulin Lispro (Admelog, HumaLOG) 100 UNIT/ML injection vial, Inject 15 Units under the skin 3 times a day with meals. Can be adjusted per the MD at [facility], Disp: , Rfl: Lantus SoloStar 100 UNIT/ML [...] for nausea or vomiting., Disp: , Rfl: rOPINIRole (Requip) 1 MG tablet, TAKE 1 TABLET 2 TIMES EACH DAY, Disp: , Rfl: senna (Senokot) 8.6 MG [...] by mouth every evening., Disp: , Rfl: benzonatate (Tessalon) 100 MG capsule, Take 1 capsule by mouth 3 (three) times a day as needed for cough. (Patient not taking: Reported on 10/04/2024), Disp: , Rfl: insulin lispro (Admelog, HumaLOG) 100 UNIT/ML injection pen, , Disp: , Rfl: ondansetron (Zofran) 8 MG tablet, Take 1 tablet by mouth 2 times a day. Take on Day 4 of cycle and then take PRN, Disp: 30 tablet, Rfl: 5 pantoprazole (Protonix) 40 MG EC tablet, Take 1 tablet by mouth daily. Do not crush, chew, or split. (Patient not taking: Reported on 10/04/2024), Disp: , Rfl: polyethylene glycol (Miralax) 17 g packet, Take 17 g by mouth daily. (Patient not taking: Reported on 10/04/2024), Disp: , Rfl: prochlorperazine (Compazine) 10 MG tablet, Take 1 tablet by mouth every 6 hours as needed for nausea or vomiting., Disp: 30 tablet, Rfl: 3 documented in this encounter Plan of Treatment Upcoming Encounters Date Type Department Care Team (Late st Contact Info) Description 11/29/2024 10:30 AM EDT Clinical Support Pav CC Head, Neck & Respiratory [address] [facility] [place] [address] 11/29/2024 11:00 AM EDT Office Visit Pav CC Head, Neck & Respiratory [address] [facility] [place] [address] Satnam Colvin MD [address] [facility] [address] [place] [address] 11/29/2024 12:30 PM EDT Appointment [facility] [address] [place] [address] 11/30/2024 1:30 PM EDT Appointment [facility] In[facility] [address] [place] [address] 12/01/2024 2:00 PM EDT Appointment [facility] [address] [place] [address] 12/06/2024 11:40 AM EDT Appointment PAV CC Radiation [address] [id number] [place] [address] Haven Blum, ENTRY LEVEL MARKETING ASSISTANT [address] [facility] [id number] [place] [address] 01/19/2025 9:30 AM EDT Appointment P[facility] S Radiology [address] [place] [address] 01/19/2025 10:45 AM EDT Office Visit [place] [facility] [address], [address] [place] [address] Abhilash Bangura MD [address] [place] [address] 03/08/2025 1:00 PM EDT Office Visit [facility] Vesuvius Gigi [address] [facility] [place] [address] Teresita Oconnell MD [address] [place] [address] documented as of this encounter Procedures Procedure Name Priority Date/Time Associated Diagnosis Comments CARIS DE TUMOR SEEK HYBRID + IHCS AND OTHER TESTS BY TUMOR TYPE Routine 10/05/2024 8:54 AM EDT Extensive stage primary small cell carcinoma of lung documented in this encounter Results * (ABNORMAL) Magnesium (11/08/2024 11:36 AM EDT) Magnesium, Plasma 1.6(L) 1.9 - 2.4 mg/dL 11/08/2024 12:14 PM EDT [facility] Blood Venous blood specimen / Unknown Venipuncture / Unknown 11/08/2024 11:36 AM EDT 11/08/2024 11:45 AM EDT Satnam Dunne MD LAB BLOOD ORDERABLES Fi nal Result [facility] [address] [place] [address] * (ABNORMAL) Comprehensive metabolic panel (11/08/2024 11:36 AM EDT) Glucose, Plasma 140(H) 74 - 99 mg/dL 11/08/2024 12:14 PM EDT [facility] BUN, Plasma 11 8 - 23 mg/dL 11/08/2024 12:14 PM EDT [facility] Creatinine, Plasma 0.77 0.60 - 1.10 mg/dL 11/08/2024 12:14 PM EDT [facility] BUN/Creatinine Ratio 14 11/08/2024 12:14 PM EDT [facility] Sodium, Plasma 144 136 - 145 mmol/L 11/08/2024 12:14 PM EDT [facility] Potassium, Plasma 4.1 3.6 - 4.9 mmol/L 11/08/2024 12:14 PM EDT [facility] Chloride, Plasma 105 97 - 107 mmol/L 11/08/2024 12:14 PM EDT [facility] CO2, Plasma 23 22 - 29 mmol/L 11/08/2024 12:14 PM EDT [facility] Anion Gap 16 6 - 16 mmol/L 11/08/2024 12:14 PM EDT [facility] Total Calcium, Plasma 9.3 8.9 - 10.2 mg/dL 11/08/2024 12:14 PM EDT [facility] Total Protein 7.1 6.3 - 7.9 g/dL 11/08/2024 12:14 PM EDT [facility] Albumin, Plasma 3.7 3.5 - 5.2 g/dL 11/08/2024 12:14 PM EDT [facility] AST, Plasma 17 10 - 35 U/L 11/08/2024 12:14 PM EDT [facility] ALT, Plasma 26 10 - 35 U/L 11/08/2024 12:14 PM EDT [facility] Alkaline Phosphatase, Plasma 94 46 - 142 U/L 11/08/2024 12:14 PM EDT [facility] Total Bilirubin, Plasma 0.4 0.2 - 1.1 mg/dL 11/08/2024 12:14 PM EDT [facility] eGFRcr 86.8 mL/min/1.7 3m*2 11/08/2024 12:14 PM EDT [facility] Comment:Reported eGFRcr in m L/min/1.73m2 is based the CKD-EPI 2020 equation that does not use a race coefficient. Blood Venous blood specimen / Unknown Venipuncture / Unknown 11/08/2024 11:36 AM EDT 11/08/2024 11:45 AM EDT Satnam Dunne MD LAB BLOOD ORDERABLES Fi nal Result [facility] [address] [place] [address] * (ABNORMAL) CBC and differential (11/08/2024 11:36 AM EDT) WBC Count 10.97(H) 3.70 - 10.30 10*3/uL LAB HEMATOLOGY METHOD 11/08/2024 11:52 AM EDT [facility] RBC Count 2.87(L) 3.90 - 5.20 10*6/uL LAB HEMATOLOGY METHOD 11/08/2024 11:52 AM EDT [facility] HGB 8.9(L) 11.2 - 15.7 g/dL LAB HEMATOLOGY METHOD 11/08/2024 11:52 AM EDT [facility] HCT 30.2(L) 34.0 - 45.0 % LAB HEMATOLOGY METHOD 11/08/2024 11:52 AM EDT [facility] Platelet Count 275 155 - 369 10*3/uL LAB HEMATOLOGY METHOD 11/08/2024 11:52 AM EDT [facility] MCV 105(H) 79 - 98 fL LAB HEMATOLOGY METHOD 11/08/2024 11:52 AM EDT [facility] MCH 31.0 26.0 - 32.0 pg LAB HEMATOLOGY METHOD 11/08/2024 11:52 AM EDT [facility] MCHC 29.5(L) 30.7 - 35.5 g/dL LAB HEMATOLOGY METHOD 11/08/2024 11:52 AM EDT [facility] RDW 19.9(H) 11.5 - 14.5 % LAB HEMATOLOGY METHOD 11/08/2024 11:52 AM EDT [facility] MPV 9.7 8.8 - 12.5 fL LAB HEMATOLOGY METHOD 11/08/2024 11:52 AM EDT [facility] nRBC 1.1(H) <=0.0 per 100 WBCs LAB HEMATOLOGY METHOD 11/08/2024 11:52 AM EDT [facility] Differential Type Automated LAB HEMATOLOGY METHOD 11/08/2024 11:52 AM EDT [facility] Neutrophils % 78 % LAB HEMATOLOGY METHOD 11/08/2024 11:52 AM EDT [facility] Lymphocytes % 13 % LAB HEMATOLOGY METHOD 11/08/2024 11:52 AM EDT [facility] Monocytes % 6 % LAB HEMATOLOGY METHOD 11/08/2024 11:52 AM EDT [facility] Eosinophils % 1 % LAB HEMATOLOGY METHOD 11/08/2024 11:52 AM EDT [facility] Basophils % 1 % LAB HEMATOLOGY METHOD 11/08/2024 11:52 AM EDT [facility] Immature Granulocytes % 1 % LAB HEMATOLOGY METHOD 11/08/2024 11:52 AM EDT [facility] Neutrophils Absolute 8.68(H) 1.60 - 6.10 10*3/uL LAB HEMATOLOGY METHOD 11/08/2024 11:52 AM EDT [facility] Lymphocytes Absolute 1.38 1.20 - 3.90 10*3/uL LAB HEMATOLOGY METHOD 11/08/2024 11:52 AM EDT [facility] Monocytes Absolute 0.68 0.30 - 0.90 10*3/uL LAB HEMATOLOGY METHOD 11/08/2024 11:52 AM EDT [facility] Eosinophils Absolute 0.07 0.00 - 0.50 10*3/uL LAB HEMATOLOGY METHOD 11/08/2024 11:52 AM EDT [facility] Basophils Absolute 0.06 0.00 - 0.10 10*3/uL LAB HEMATOLOGY METHOD 11/08/2024 11:52 AM EDT [facility] Immature Granulocytes Absolute 0.10(H) 0.00 - 0.06 10*3/uL LAB HEMATOLOGY METHOD 11/08/2024 11:52 AM EDT [facility] Blood Venous blood specimen / Unknown Venipuncture / Unknown 11/08/2024 11:36 AM EDT 11/08/2024 11:45 AM EDT Narrative [facility] - 11/08/2024 11:52 AM EDT Therapeutic decision making should be based on absolute values, rather than percentages. us Satnam Dunne MD LAB BLOOD ORDERABLES Fi nal Result [facility] [address] [place] [address] * (ABNORMAL) Caris DE Cancer Seek Hybrid??? + IHCs and Other Tests by Tumor Type (10/05/2024 8:54 AM EDT) CARIS PD-L1 (22C3) Negative 2024 8:15 PM EDT [employer] CARIS Genomic Loss of Heterozygosity - [place] Low 4% 10/16/2024 8:15 PM EDT [employer] CARIS Microsatellite Instability - [place] Stable 10/16/2024 8:15 PM EDT [employer] CARIS Tumor Mutational [place] - [place] High 11 per Mb 10/16/2024 8:15 PM EDT [employer] CARIS Her2/Megan Negative 10/16/2024 8:15 PM EDT [employer] CARIS HLA-A - [place] A*02:01,A*24 :02 10/16/2024 8:15 PM EDT [employer] CARIS HLA-B - [place] B*08:01,B*39 :06 10/16/2024 8:15 PM EDT [employer] CARIS HLA-C - [place] C*07:01,C*07 :02 10/16/2024 8:15 PM EDT [employer] Tissue Non-blood Collection / Unknown 10/05/2024 8:54 AM EDT 10/05/2024 8:54 AM EDT Narrative This result has genomic variants that were not included in this document. us Satnam Dunne MD LAB MOL DX NO SOURCE Fi nal Result [employer] [id number] [address], * TSH reflex FT4 (10/04/2024 9:43 AM EDT) Thyroid Stimulating Hormone, Plasma 0.90 0.40 - 4.20 uIU/mL 10/04/2024 10:29 AM EDT [facility] Blood Venous blood specimen / Unknown Venipuncture / Unknown 10/04/2024 9:43 AM EDT 10/04/2024 9:55 AM EDT Satnam Dunne MD LAB BLOOD ORDERABLES Fi nal Result Performing Organization Address City/[facility]/ZIP Co de Phone Number [facility] [address] [place] [address] * (ABNORMAL) Magnesium (10/04/2024 9:43 AM EDT) Magnesium, Plasma 1.5(L) 1.9 - 2.4 mg/dL 10/04/2024 10:29 AM EDT [facility] Blood Venous blood specimen / Unknown Venipuncture / Unknown 10/04/2024 9:43 AM EDT 10/04/2024 9:55 AM EDT us Satnam Dunne MD LAB BLOOD ORDERABLES Fi nal Result [facility] [address] [place] [address] * (ABNORMAL) Comprehensive metabolic panel (10/04/2024 9:43 AM EDT) Glucose, Plasma 263(H) 74 - 99 mg/dL 10/04/2024 10:29 AM EDT [facility] BUN, Plasma 22 8 - 23 mg/dL 10/04/2024 10:29 AM EDT [facility] Creatinine, Plasma 0.73 0.60 - 1.10 mg/dL 10/04/2024 10:29 AM EDT [facility] BUN/Creatinine Ratio 30 10/04/2024 10:29 AM EDT [facility] Sodium, Plasma 140 136 - 145 mmol/L 10/04/2024 10:29 AM EDT [facility] Potassium, Plasma 5.1(H) 3.6 - 4.9 mmol/L 10/04/2024 10:29 AM EDT [facility] Chloride, Plasma 99 97 - 107 mmol/L 10/04/2024 10:29 AM EDT [facility] CO2, Plasma 28 22 - 29 mmol/L 10/04/2024 10:29 AM EDT [facility] Anion Gap 13 6 - 16 mmol/L 10/04/2024 10:29 AM EDT [facility] Total Calcium, Plasma 8.7(L) 8.9 - 10.2 mg/dL 10/04/2024 10:29 AM EDT [facility] Total Protein 6.1(L) 6.3 - 7.9 g/dL 10/04/2024 10:29 AM EDT [facility] Albumin, Plasma 3.5 3.5 - 5.2 g/dL 10/04/2024 10:29 AM EDT [facility] AST, Plasma 22 10 - 35 U/L 10/04/2024 10:29 AM EDT [facility] Comment:Hemolyzed, result ma y be falsely increased. ALT, Plasma 39(H) 10 - 35 U/L 10/04/2024 10:29 AM EDT [facility] Alkaline Phosphatase, Plasma 111 46 - 142 U/L 10/04/2024 10:29 AM EDT [facility] Total Bilirubin, Plasma 0.4 0.2 - 1.1 mg/dL 10/04/2024 10:29 AM EDT [facility] eGFRcr 92.5 mL/min/1.7 3m*2 10/04/2024 10:29 AM EDT [facility] Comment:Reported eGFRcr in m L/min/1.73m2 is based the CKD-EPI 2020 equation that does not use a race coefficient. Blood Venous blood specimen / Unknown Venipuncture / Unknown 10/04/2024 9:43 AM EDT 10/04/2024 9:55 AM EDT Satnam Dunne MD LAB BLOOD ORDERABLES Fi nal Result [facility] [address] [place] [address] * (ABNORMAL) CBC and differential (10/04/2024 9:43 AM EDT) WBC Count 7.20 3.70 - 10.30 10*3/uL LAB HEMATOLOGY METHOD 10/04/2024 10:10 AM EDT [facility] RBC Count 3.95 3.90 - 5.20 10*6/uL LAB HEMATOLOGY METHOD 10/04/2024 10:10 AM EDT [facility] HGB 12.2 11.2 - 15.7 g/dL LAB HEMATOLOGY METHOD 10/04/2024 10:10 AM EDT [facility] HCT 38.8 34.0 - 45.0 % LAB HEMATOLOGY METHOD 10/04/2024 10:10 AM EDT [facility] Platelet Count 139(L) 155 - 369 10*3/uL LAB HEMATOLOGY METHOD 10/04/2024 10:10 AM EDT [facility] MCV 98 79 - 98 fL LAB HEMATOLOGY METHOD 10/04/2024 10:10 AM EDT [facility] MCH 30.9 26.0 - 32.0 pg LAB HEMATOLOGY METHOD 10/04/2024 10:10 AM EDT [facility] MCHC 31.4 30.7 - 35.5 g/dL LAB HEMATOLOGY METHOD 10/04/2024 10:10 AM EDT [facility] RDW 15.9(H) 11.5 - 14.5 % LAB HEMATOLOGY METHOD 10/04/2024 10:10 AM EDT [facility] MPV 9.6 8.8 - 12.5 fL LAB HEMATOLOGY METHOD 10/04/2024 10:10 AM EDT [facility] nRBC 0.3(H) <=0.0 per 100 WBCs LAB HEMATOLOGY METHOD 10/04/2024 10:10 AM EDT [facility] Differential Type Automated LAB HEMATOLOGY METHOD 10/04/2024 10:10 AM EDT [facility] Neutrophils % 76 % LAB HEMATOLOGY METHOD 10/04/2024 10:10 AM EDT [facility] Lymphocytes % 15 % LAB HEMATOLOGY METHOD 10/04/2024 10:10 AM EDT [facility] Monocytes % 4 % LAB HEMATOLOGY METHOD 10/04/2024 10:10 AM EDT [facility] Eosinophils % 0 % LAB HEMATOLOGY METHOD 10/04/2024 10:10 AM EDT [facility] Basophils % 0 % LAB HEMATOLOGY METHOD 10/04/2024 10:10 AM EDT [facility] Immature Granulocytes % 5 % LAB HEMATOLOGY METHOD 10/04/2024 10:10 AM EDT [facility] Neutrophils Absolute 5.44 1.60 - 6.10 10*3/uL LAB HEMATOLOGY METHOD 10/04/2024 10:10 AM EDT [facility] Lymphocytes Absolute 1.06(L) 1.20 - 3.90 10*3/uL LAB HEMATOLOGY METHOD 10/04/2024 10:10 AM EDT [facility] Monocytes Absolute 0.28(L) 0.30 - 0.90 10*3/uL LAB HEMATOLOGY METHOD 10/04/2024 10:10 AM EDT [facility] Eosinophils Absolute 0.02 0.00 - 0.50 10*3/uL LAB HEMATOLOGY METHOD 10/04/2024 10:10 AM EDT [facility] Basophils Absolute 0.03 0.00 - 0.10 10*3/uL LAB HEMATOLOGY METHOD 10/04/2024 10:10 AM EDT [facility] Immature Granulocytes Absolute 0.37(H) 0.00 - 0.06 10*3/uL LAB HEMATOLOGY METHOD 10/04/2024 10:10 AM EDT [facility] Blood Venous blood specimen / Unknown Venipuncture / Unknown 10/04/2024 9:43 AM EDT 10/04/2024 9:58 AM EDT Narrative [facility] - 10/04/2024 10:10 AM EDT Therapeutic decision making should be based on absolute values, rather than percentages. Satnam Dunne MD LAB BLOOD ORDERABLES Fi nal Result [facility] [address] [place] [address] documented in this encounter Visit Diagnoses Diagnosis Extensive stage primary small cell carcinoma of lung- Primary Brain mass Unspecified condition of brain Type 2 diabetes mellitus without complication, without [...] documented as of this encounter Care Teams Electronic Systems Security Assessment Relationship Specialty Start Date End Date Laurie Gutierrez MD [address] [place] [id number] PCP - General 12/09/23 Joshua Martínez MD [address] [facility] [address] [place] [address] Consulting Physician Radiation Oncology 09/19/24 documented as of this encounter
--- OUTSIDE RECORDS SUMMARY | 2024-10-04 10:40 | XMS_ITS | Encounter Summary ---
Author Organization Healthcare Address [address] [place] [address] Care Team Providers Care Jewel Stringer Name Role Phone Laurie Gutierrez MD Primary Care Provider [phone] Joshua Martínez MD Unavailable Reason for Visit * Reason Comments Follow-up Encounter Details Date Type Department Care Team ([facility] Contact Info) Description 10/04/2024 10:40 AM EDT Office Visit [facility] Head, Neck & Respiratory [address] [facility], [address]nd [place] [address] Satnam Colvin MD [address] [facility] [address] [place] [address] Extensive stage primary small cell carcinoma of [...] place to sleep or slept in a intermediate (including now)? No 11/20/2023 PHQ-9 Answer Date [...] any time in the past 12 m [facility], were you homeless or living in a intermediate (including now)? 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 0 11/19/2023 CAGE Questionnaire Score 0 024 Utilities Answer Date Recorded In the past 12 months has th e [employer], gas, oil, or water [employer] threatened to shut off services in your [...] AM EDT Pharmacy Hematology/Oncology Treatment Note Teresa Rivera is a 63 y.o. female with ES [...] time. Pharmacist Attestation: Rupa De Santiago PharmD, [facility] Clinical Oncology Pharmacist * Progress Notes - [...] 10/04-10/06/24 Oncology History: - initially diagnosed with [id number], stage IIIA limited stage of the right [...] in patients with cancer. MD GIGI Man [facility] HEAD, NECK & RESPIRATORY [address] [facility] [address] [facility]. [1] Past Medical History: Diagnosis Date [...] PLACEMENT N/A Ear Surgery Eustachian Tube from [employer] [3] Family History Problem Relation Name Age [...] MINI PEN NEEDLES 31G X [address] [facility], , Disp: , Rfl: Blood Glucose Monitoring Suppl (C[employer]ds[employer] co.Touch Verio Flex System) w/Device kit, , Disp: , Rfl: Txvjjde-Zpkrwblqjlw-Rskfouisba (Breztri Aerosphere) 160-9-4.8 MCG/ACT aerosol, Inhale 2 [...] Rfl: Continuous Glucose Sensor (Dexcom G6 Sensor) [facility], USE DIRECTED TO MEASURE BLOOD SUGAR. REPLACE [...] Can be adjusted per the MD at [facility], Disp: , Rfl: Insulin Lispro (Admelog, HumaLOG) 100 UNIT/ML injection vial, Inject 15 Units under the skin 3 times a day with meals. Can be adjusted per the MD at [facility], Disp: , Rfl: Lantus SoloStar 100 UNIT/ML [...] [facility] Head, Neck & Respiratory [address] [facility] [place] [address] 11/29/2024 11:00 AM EDT Office Visit Pav [facility] Head, Neck & Respiratory [address] [facility]nd [place] [address] Satnam Colvin MD [address] [facility] [address] [place] [address] 11/29/2024 12:30 PM EDT Appointment [facility] [address] [place] [address] 11/30/2024 1:30 PM EDT Appointment [facility] [address] [place] [address] 12/01/2024 2:00 PM EDT Appointment [facility] [address] [place] [address] 12/06/2024 11:40 AM EDT Appointment [facility] Radiation [address] [id number] [place] [address] Haven Blum, BUILDING MAINTENANCE SUPERVISOR [address] [facility] [address] [place] [address] 01/19/2025 9:30 AM EDT Appointment [facility] Radiology [address] [place] [address] 01/19/2025 10:45 AM EDT Office Visit [place] [facility] [address], [address] [place] [address] Abhilash Bangura MD [address] [place] [address] 03/08/2025 1:00 PM EDT Office Visit [facility] [place] [facility] [address] [facility] [place] [address] Teresita Oconnell MD [address] [place] [address] documented as of this encounter Procedures Procedure Name Priority Date/Time Associated Diagnosis Comments CARIS MA TUMOR SEEK HYBRID + IHCS AND OTHER TESTS BY TUMOR TYPE Routine 10/05/2024 8:54 AM EDT Extensive stage primary small cell carcinoma of lung documented in this encounter Results * (ABNORMAL) Magnesium (11/08/2024 11:36 AM EDT) Magnesium, Plasma 1.6(L) 1.9 - 2.4 mg/dL 11/08/2024 12:14 PM EDT [facility] Blood Venous blood specimen / Unknown Venipuncture / Unknown 11/08/2024 11:36 AM EDT 11/08/2024 11:45 AM EDT Satnam Dunne MD LAB BLOOD ORDERABLES Fi nal Result [facility] [address] [place] [address] * (ABNORMAL) Comprehensive metabolic panel (11/08/2024 11:36 AM EDT) Glucose, Plasma 140(H) 74 - 99 mg/dL 11/08/2024 12:14 PM EDT [facility] BUN, Plasma 11 8 - 23 mg/dL 11/08/2024 12:14 PM EDT [facility] Creatinine, Plasma 0.77 0.60 - 1.10 mg/dL 11/08/2024 12:14 PM EDT [facility] BUN/Creatinine Ratio 14 11/08/2024 12:14 PM EDT [facility] Sodium, Plasma 144 136 - 145 mmol/L 11/08/2024 12:14 PM EDT [facility] Potassium, Plasma 4.1 3.6 - 4.9 mmol/L 11/08/2024 12:14 PM EDT [facility] Chloride, Plasma 105 97 - 107 mmol/L 11/08/2024 12:14 PM EDT [facility] CO2, Plasma 23 22 - 29 mmol/L 11/08/2024 12:14 PM EDT [facility] Anion Gap 16 6 - 16 mmol/L 11/08/2024 12:14 PM EDT [facility] Total Calcium, Plasma 9.3 8.9 - 10.2 mg/dL 11/08/2024 12:14 PM EDT [facility] Total Protein 7.1 6.3 - 7.9 g/dL 11/08/2024 12:14 PM EDT [facility] Albumin, Plasma 3.7 3.5 - 5.2 g/dL 11/08/2024 12:14 PM EDT [facility] AST, Plasma 17 10 - 35 U/L 11/08/2024 12:14 PM EDT [facility] ALT, Plasma 26 10 - 35 U/L 11/08/2024 12:14 PM EDT [facility] Alkaline Phosphatase, Plasma 94 46 - 142 U/L 11/08/2024 12:14 PM EDT [facility] Total Bilirubin, Plasma 0.4 0.2 - 1.1 mg/dL 11/08/2024 12:14 PM EDT [facility] eGFRcr 86.8 mL/min/1.7 3m*2 11/08/2024 12:14 PM EDT [facility] Comment:Reported eGFRcr in m L/min/1.73m2 is based the CKD-EPI 2020 equation that does not use a race coefficient. Blood Venous blood specimen / Unknown Venipuncture / Unknown 11/08/2024 11:36 AM EDT 11/08/2024 11:45 AM EDT Satnam Dunne MD LAB BLOOD ORDERABLES Fi nal Result [facility] [address] [place] [address] * (ABNORMAL) CBC and differential (11/08/2024 11:36 AM EDT) WBC Count 10.97(H) 3.70 - 10.30 10*3/uL LAB HEMATOLOGY METHOD 11/08/2024 11:52 AM EDT [facility] RBC Count 2.87(L) 3.90 - 5.20 10*6/uL LAB HEMATOLOGY METHOD 11/08/2024 11:52 AM EDT [facility] HGB 8.9(L) 11.2 - 15.7 g/dL LAB HEMATOLOGY METHOD 11/08/2024 11:52 AM EDT [facility] HCT 30.2(L) 34.0 - 45.0 % LAB HEMATOLOGY METHOD 11/08/2024 11:52 AM EDT [facility] Platelet Count 275 155 - 369 10*3/uL LAB HEMATOLOGY METHOD 11/08/2024 11:52 AM EDT [facility] MCV 105(H) 79 - 98 fL LAB HEMATOLOGY METHOD 11/08/2024 11:52 AM EDT [facility] MCH 31.0 26.0 - 32.0 pg LAB HEMATOLOGY METHOD 11/08/2024 11:52 AM EDT [facility] MCHC 29.5(L) 30.7 - 35.5 g/dL LAB HEMATOLOGY METHOD 11/08/2024 11:52 AM EDT [facility] RDW 19.9(H) 11.5 - 14.5 % LAB HEMATOLOGY METHOD 11/08/2024 11:52 AM EDT [facility] MPV 9.7 8.8 - 12.5 fL LAB HEMATOLOGY METHOD 11/08/2024 11:52 AM EDT [facility] nRBC 1.1(H) <=0.0 per 100 WBCs LAB HEMATOLOGY METHOD 11/08/2024 11:52 AM EDT [facility] Differential Type Automated LAB HEMATOLOGY METHOD 11/08/2024 11:52 AM EDT [facility] Neutrophils % 78 % LAB HEMATOLOGY METHOD 11/08/2024 11:52 AM EDT [facility] Lymphocytes % 13 % LAB HEMATOLOGY METHOD 11/08/2024 11:52 AM EDT [facility] Monocytes % 6 % LAB HEMATOLOGY METHOD 11/08/2024 11:52 AM EDT [facility] Eosinophils % 1 % LAB HEMATOLOGY METHOD 11/08/2024 11:52 AM EDT [facility] Basophils % 1 % LAB HEMATOLOGY METHOD 11/08/2024 11:52 AM EDT [facility] Immature Granulocytes % 1 % LAB HEMATOLOGY METHOD 11/08/2024 11:52 AM EDT [facility] Neutrophils Absolute 8.68(H) 1.60 - 6.10 10*3/uL LAB HEMATOLOGY METHOD 11/08/2024 11:52 AM EDT [facility] Lymphocytes Absolute 1.38 1.20 - 3.90 10*3/uL LAB HEMATOLOGY METHOD 11/08/2024 11:52 AM EDT [facility] Monocytes Absolute 0.68 0.30 - 0.90 10*3/uL LAB HEMATOLOGY METHOD 11/08/2024 11:52 AM EDT [facility] Eosinophils Absolute 0.07 0.00 - 0.50 10*3/uL LAB HEMATOLOGY METHOD 11/08/2024 11:52 AM EDT [facility] Basophils Absolute 0.06 0.00 - 0.10 10*3/uL LAB HEMATOLOGY METHOD 11/08/2024 11:52 AM EDT [facility] Immature Granulocytes Absolute 0.10(H) 0.00 - 0.06 10*3/uL LAB HEMATOLOGY METHOD 11/08/2024 11:52 AM EDT [facility] Blood Venous blood specimen / Unknown Venipuncture / Unknown 11/08/2024 11:36 AM EDT 11/08/2024 11:45 AM EDT Narrative [facility] - 11/08/2024 11:52 AM EDT Therapeutic decision making should be based on absolute values, rather than percentages. us Satnam Dunne MD LAB BLOOD ORDERABLES Fi nal Result [facility] [address] [place] [address] * (ABNORMAL) Caris MA Cancer Seek Hybrid??? + IHCs and Other Tests by Tumor Type (10/05/2024 8:54 AM EDT) CARIS PD-L1 (22C3) Negative 2024 8:15 PM EDT [employer] CARIS Genomic Loss of Heterozygosity - [place] Low 4% 10/16/2024 8:15 PM EDT [employer] CARIS Microsatellite Instability - [place] Stable 10/16/2024 8:15 PM EDT [employer] CARIS Tumor Mutational [place] - [place] High 11 per Mb 10/16/2024 8:15 PM EDT [employer] CARIS Her2/Megan Negative 10/16/2024 8:15 PM EDT [employer] CARIS HLA-A - [place] A*02:01,A*24 :02 10/16/2024 8:15 PM EDT [employer] CARIS HLA-B - [place] B*08:01,B*39 :06 10/16/2024 8:15 PM EDT [employer] [employer] CARIS HLA-C - [place] C*07:01,C*07 :02 10/16/2024 8:15 PM EDT [facility] Tissue Non-blood Collection / Unknown 10/05/2024 8:54 AM EDT 10/05/2024 8:54 AM EDT Narrative This result has genomic variants that were not included in this document. us Satnam Dunne MD LAB MOL DX NO SOURCE Fi nal Result [facility] [address] [address], * TSH reflex FT4 (10/04/2024 9:43 AM EDT) Thyroid Stimulating Hormone, Plasma 0.90 0.40 - 4.20 uIU/mL 10/04/2024 10:29 AM EDT [facility] Blood Venous blood specimen / Unknown Venipuncture / Unknown 10/04/2024 9:43 AM EDT 10/04/2024 9:55 AM EDT Satnam Dunne MD LAB BLOOD ORDERABLES Fi nal Result Performing Organization Address City/[facility]/ZIP Co de Phone Number [facility] [address] [place] [address] * (ABNORMAL) Magnesium (10/04/2024 9:43 AM EDT) Magnesium, Plasma 1.5(L) 1.9 - 2.4 mg/dL 10/04/2024 10:29 AM EDT [facility] Blood Venous blood specimen / Unknown Venipuncture / Unknown 10/04/2024 9:43 AM EDT 10/04/2024 9:55 AM EDT us Satnam Dunne MD LAB BLOOD ORDERABLES Fi nal Result [facility] [address] [place] [address] * (ABNORMAL) Comprehensive metabolic panel (10/04/2024 9:43 AM EDT) Glucose, Plasma 263(H) 74 - 99 mg/dL 10/04/2024 10:29 AM EDT [facility] BUN, Plasma 22 8 - 23 mg/dL 10/04/2024 10:29 AM EDT [facility] Creatinine, Plasma 0.73 0.60 - 1.10 mg/dL 10/04/2024 10:29 AM EDT [facility] BUN/Creatinine Ratio 30 10/04/2024 10:29 AM EDT [facility] Sodium, Plasma 140 136 - 145 mmol/L 10/04/2024 10:29 AM EDT [facility] Potassium, Plasma 5.1(H) 3.6 - 4.9 mmol/L 10/04/2024 10:29 AM EDT [facility] Chloride, Plasma 99 97 - 107 mmol/L 10/04/2024 10:29 AM EDT [facility] CO2, Plasma 28 22 - 29 mmol/L 10/04/2024 10:29 AM EDT [facility] Anion Gap 13 6 - 16 mmol/L 10/04/2024 10:29 AM EDT [facility] Total Calcium, Plasma 8.7(L) 8.9 - 10.2 mg/dL 10/04/2024 10:29 AM EDT [facility] Total Protein 6.1(L) 6.3 - 7.9 g/dL 10/04/2024 10:29 AM EDT [facility] Albumin, Plasma 3.5 3.5 - 5.2 g/dL 10/04/2024 10:29 AM EDT [facility] AST, Plasma 22 10 - 35 U/L 10/04/2024 10:29 AM EDT [facility] Comment:Hemolyzed, result ma y be falsely increased. ALT, Plasma 39(H) 10 - 35 U/L 10/04/2024 10:29 AM EDT [facility] Alkaline Phosphatase, Plasma 111 46 - 142 U/L 10/04/2024 10:29 AM EDT [facility] Total Bilirubin, Plasma 0.4 0.2 - 1.1 mg/dL 10/04/2024 10:29 AM EDT [facility] eGFRcr 92.5 mL/min/1.7 3m*2 10/04/2024 10:29 AM EDT [facility] Comment:Reported eGFRcr in m L/min/1.73m2 is based the CKD-EPI 2020 equation that does not use a race coefficient. Blood Venous blood specimen / Unknown Venipuncture / Unknown 10/04/2024 9:43 AM EDT 10/04/2024 9:55 AM EDT Satnam Dunne MD LAB BLOOD ORDERABLES Fi nal Result [facility] [address] [place] [address] * (ABNORMAL) CBC and differential (10/04/2024 9:43 AM EDT) WBC Count 7.20 3.70 - 10.30 10*3/uL LAB HEMATOLOGY METHOD 10/04/2024 10:10 AM EDT [facility] RBC Count 3.95 3.90 - 5.20 10*6/uL LAB HEMATOLOGY METHOD 10/04/2024 10:10 AM EDT [facility] HGB 12.2 11.2 - 15.7 g/dL LAB HEMATOLOGY METHOD 10/04/2024 10:10 AM EDT [facility] HCT 38.8 34.0 - 45.0 % LAB HEMATOLOGY METHOD 10/04/2024 10:10 AM EDT [facility] Platelet Count 139(L) 155 - 369 10*3/uL LAB HEMATOLOGY METHOD 10/04/2024 10:10 AM EDT [facility] MCV 98 79 - 98 fL LAB HEMATOLOGY METHOD 10/04/2024 10:10 AM EDT [facility] MCH 30.9 26.0 - 32.0 pg LAB HEMATOLOGY METHOD 10/04/2024 10:10 AM EDT [facility] MCHC 31.4 30.7 - 35.5 g/dL LAB HEMATOLOGY METHOD 10/04/2024 10:10 AM EDT [facility] RDW 15.9(H) 11.5 - 14.5 % LAB HEMATOLOGY METHOD 10/04/2024 10:10 AM EDT [facility] MPV 9.6 8.8 - 12.5 fL LAB HEMATOLOGY METHOD 10/04/2024 10:10 AM EDT [facility] nRBC 0.3(H) <=0.0 per 100 WBCs LAB HEMATOLOGY METHOD 10/04/2024 10:10 AM EDT [facility] Differential Type Automated LAB HEMATOLOGY METHOD 10/04/2024 10:10 AM EDT [facility] Neutrophils % 76 % LAB HEMATOLOGY METHOD 10/04/2024 10:10 AM EDT [facility] Lymphocytes % 15 % LAB HEMATOLOGY METHOD 10/04/2024 10:10 AM EDT [facility] Monocytes % 4 % LAB HEMATOLOGY METHOD 10/04/2024 10:10 AM EDT [facility] Eosinophils % 0 % LAB HEMATOLOGY METHOD 10/04/2024 10:10 AM EDT [facility] Basophils % 0 % LAB HEMATOLOGY METHOD 10/04/2024 10:10 AM EDT [facility] Immature Granulocytes % 5 % LAB HEMATOLOGY METHOD 10/04/2024 10:10 AM EDT [facility] Neutrophils Absolute 5.44 1.60 - 6.10 10*3/uL LAB HEMATOLOGY METHOD 10/04/2024 10:10 AM EDT [facility] Lymphocytes Absolute 1.06(L) 1.20 - 3.90 10*3/uL LAB HEMATOLOGY METHOD 10/04/2024 10:10 AM EDT [facility] Monocytes Absolute 0.28(L) 0.30 - 0.90 10*3/uL LAB HEMATOLOGY METHOD 10/04/2024 10:10 AM EDT [facility] Eosinophils Absolute 0.02 0.00 - 0.50 10*3/uL LAB HEMATOLOGY METHOD 10/04/2024 10:10 AM EDT [facility] Basophils Absolute 0.03 0.00 - 0.10 10*3/uL LAB HEMATOLOGY METHOD 10/04/2024 10:10 AM EDT [facility] Immature Granulocytes Absolute 0.37(H) 0.00 - 0.06 10*3/uL LAB HEMATOLOGY METHOD 10/04/2024 10:10 AM EDT [facility] Blood Venous blood specimen / Unknown Venipuncture / Unknown 10/04/2024 9:43 AM EDT 10/04/2024 9:58 AM EDT Narrative [facility] - 10/04/2024 10:10 AM EDT Therapeutic decision making should be based on absolute values, rather than percentages. Satnam Dunne MD LAB BLOOD ORDERABLES Fi nal Result [facility] [address] [place] [address] documented in this encounter Visit Diagnoses Diagnosis [...] documented as of this encounter Care Teams Jewel Stringer Relationship Specialty Start Date End Date Laurie Gutierrez MD [address] [place] [id number] PCP - General 12/09/23 Joshua Martínez MD [address] [facility] [address] [place] [address] Consulting Physician Radiation Oncology 09/19/24 documented as of this encounter
--- OUTSIDE RECORDS SUMMARY | 2024-10-04 11:02 | XMS_ITS | Encounter Summary ---
Author Organization [facility] Address [address] [place] [address] Care Team Providers Care Drywall Taper Helper Name Role Phone Laurie Gutierrez MD Primary Care Provider [phone] Joshua Martínez MD Unavailable Reason for Visit * Episode Based Medications (Routine) - Authorized Specialty Diagnoses / Procedures Referred By Contac t Referred To Contact Diagnoses Extensive stage primary small cell carcinoma of lung Procedures CARBOplatin / Etoposide Daily x 3 / Atezolizumab Every 21 Days Satnam Colvin MD [address] [facility] Nuria Degroot [address] [address] Phone: tel: fax: Satnam Colvin MD [address] [facility] Nuria Degroot [address] [address] Phone: tel: fax: Referral ID Status Reason Start Date Expiration Date V isits Requested Visits Authorized [id number] Authorized 10/04/2024 04/05/2026 1 16 Encounter Details Date Type Department Care Team (Latest Contact Info) Description 10/04/2024 11:02 AM EDT - 10/04/2024 11:59 PM EDT Hospital Encounter [facility] [address] [place] [address] Extensive stage primary small cell carcinoma of [...] place to sleep or slept in a [facility] (including now)? No 11/20/2023 PHQ-9 Answer Date [...] any time in the past 12 m [facility], were you homeless or living in a [facility] (including now)? No 09/06/2024 CAGE ASSESSMENT Answer [...] drink first t laurie in the morning (EYE-ELECTRONIC INSTALLER) to steady your nerves or to get [...] Take 1 tablet by mouth every evening. Budeson-Glycopyr rol-Formoterol (Breztri Aerosphere) 160-9-4.8 MCG/ACT aerosol [...] Take 1 tablet by mouth every morning. triamterene-hydr ochlorothiazide (Maxzide-25) 37.5-25 MG tablet Take 1 tablet by mouth every morning. Vitamin B-12 ER 1000 MCG tablet controlled-relea se Take 1 tablet by mouth Daily. Accu-Chek Softclix Lancets lancets USE TO TEST BLOOD SUGAR 3 TIMES EACH DAY 09/01/2024 10/26/2024 Alcohol Swabs (Easy Touch Alcohol Prep Medium) 70 % pads 09/19/2024 10/26/2024 B-D UF III MINI PEN NEEDLES 31G X 5 MM misc 09/19/2024 10/26/2024 benzonatate (Tessalon) 200 MG capsule Take 1 capsule by mouth 3 times a day as needed for cough. 10/18/2024 Blood Glucose Monitoring Suppl (Qonf Verio Flex System) w/Device kit 09/19/2024 10/26/2024 carvedilol (Coreg) 12.5 MG tablet Take 1 tablet by mouth 2 times a day with meals. 10/25/2024 ciclopirox (Penlac) 8 % solution Apply over affected nail fold daily. 10/26/2024 Continuous Glucose Precision Agronomist (Prolifiq Software G7 Precision Agronomist) device USE TO MEASURE BLOOD SUGAR DIRECTED 09/29/2024 10/26/2024 Continuous Glucose Sensor (Dexcom G6 Sensor) misc USE DIRECTED TO MEASURE BLOOD SUGAR. REPLACE SENSOR EVERY 10 DAYS 09/01/2024 10/26/2024 dexamethasone (Decadron) 2 MG tablet Take 2 tablets by mouth every 8 hours for 4 days, THEN 2 tablets every 12 hours for 4 days, THEN 1 tablet every 12 hours. 09/09/2024 10/18/2024 empagliflozin (Jardiance) 25 MG Take 1 tablet by mouth daily. 11/22/2024 FREESTYLE LITE test strip USE TO TEST BLOOD SUGAR 3 TIMES EACH DAY AND NEEDED 09/01/2024 10/26/2024 gabapentin (Neurontin) 600 MG tablet Take 1 tablet by mouth 4 times a day. 11/08/2024 insulin glargine-yfgn 100 UNIT/ML injection vial Inject 45 Units under the skin nightly. Can be adjusted per the MD at [facility] 09/09/2024 10/18/2024 insulin lispro (Admelog, HumaLOG) 100 UNIT/ML injection pen 09/19/2024 10/15/2024 Insulin Lispro (Admelog, HumaLOG) 100 UNIT/ML injection vial Inject 15 Units under the skin 3 times a day with meals. Can be adjusted per the MD at [facility] 09/09/2024 10/18/2024 Lantus SoloStar 100 UNIT/ML injection [...] 2 tablets by mouth nightly. 09/09/2024 10/18/2024 tiZANidine (Zanaflex) 2 MG tablet Take 1 tablet by mouth nightly. 11/16/2024 Xarelto 20 MG tablet Take 1 tablet by mouth every evening. 11/16/2024 documented as of this encounter Miscellaneous Notes [...] I have reviewed patient and agree with student records coordinator --Floyd Mo PharmD documented in this encounter Plan of Treatment Upcoming Encounters Date Type Department Care Team (Late st Contact Info) Description 11/29/2024 10:30 AM EDT Clinical Support [facility] [address] [facility], 2nd [place] [address] 11/29/2024 11:00 AM EDT Office Visit [facility] [address] [facility], 2nd [place] [address] Satnam Colvin MD [address] [facility] [address] [place] [phone] 11/29/2024 12:30 PM EDT Appointment [facility] [address] [place] [address] 11/30/2024 1:30 PM EDT Appointment [facility] [address] [place] [address] 12/01/2024 2:00 PM EDT Appointment [facility] [address] [place] [phone] 12/06/2024 11:40 AM EDT Appointment [facility] Radiation [address] [facility]. [id number] [place] [address] Haven Blum, LANDSCAPE ARCHITECT [address] [facility] [address] [place] [phone] 01/19/2025 9:30 AM EDT Appointment [facility] Radiology [address], [address]st [place] [address] 01/19/2025 10:45 AM EDT Office Visit [place] [facility] [address], [address] [place] [address] Abhilash Bangura MD [address] [place] [phone] 03/08/2025 1:00 PM EDT Office Visit [facility] [place] [address] [place] [phone] Teresita Oconnell MD [address] [place] [address] documented as of this encounter [...] stage primary small cell carcinoma of lung 10/04/2024 1:13 PM EDT 130 mg Atezolizumab-Hyaluronida se-tqjs (Tecentriq Hybreza) 1875-96813 MG-UT/15ML injection solution 1,875 mg 1,875 mg, Subcutaneous, Once, 1 dose, On Thu10/04/24 at 1300, RoutineIndications:Exten sive stage primary small cell carcinoma of lung 10/04/2024 1:29 PM EDT 1,875 mg Right [...] small cell carcinoma of lung New 10/04/2024 1:40 PM EDT 650 mg 720 [...] documented as of this encounter Care Teams Drywall Taper Helper Relationship Specialty Start Date End Date Laurie Gutierrez MD [address] [place] [address] PCP - General 12/09/23 Joshua Martínez MD [address] [place] [phone] Consulting Physician Radiation Oncology 09/19/24 documented as of this encounter
--- OUTSIDE RECORDS SUMMARY | 2024-10-04 11:02 | XMS_ITS | Encounter Summary ---
Author Organization [facility] Address [address] [place] [address] Care Team Providers Care Contracts Paralegal Name Role Phone Laurie Gutierrez MD Primary Care Provider [phone] Joshua Martínez MD Unavailable Reason for Visit * Episode Based Medications (Routine) - Authorized Specialty Diagnoses / Procedures Referred By Contac t Referred To Contact Diagnoses Extensive stage primary small cell carcinoma of lung Procedures CARBOplatin / Etoposide Daily x 3 / Atezolizumab Every 21 Days Satnam Colvin MD [address] [facility] [address] Deg[address] [address] Phone: tel: fax: Satnam Colvin MD [address] [facility] [address] Deg[address] [address] Phone: tel: fax: Referral ID Status Reason Start Date Expiration Date V isits Requested Visits Authorized [id number] Authorized 10/04/2024 04/05/2026 1 16 Encounter Details Date Type Department Care Team (Latest Contact Info) Description 10/04/2024 11:02 AM EDT - 10/04/2024 11:59 PM EDT Hospital Encounter [facility] [address] [place] [address] Extensive stage primary small cell carcinoma of [...] place to sleep or slept in a senior care (including now)? No 11/20/2023 PHQ-9 Answer Date [...] any time in the past 12 m [facility], were you homeless or living in a senior care (including now)? No 09/06/2024 CAGE ASSESSMENT Answer [...] drink first t laurie in the morning (EYE-PROCEDURE ANALYST) to steady your nerves or to get [...] se Take 1 tablet by mouth Daily. empagliflozin (Jardiance) 25 MG Take 1 tablet by mouth daily. 11/22/2024 Xarelto 20 MG tablet Take 1 tablet by mouth every evening. 11/16/2024 Accu-Chek Softclix Lancets lancets USE TO TEST BLOOD SUGAR 3 TIMES EACH DAY 09/01/2024 10/26/2024 Alcohol Swabs (Easy Touch Alcohol Prep Medium) 70 % pads 09/19/2024 10/26/2024 B-D UF III MINI PEN NEEDLES 31G X 5 MM misc 09/19/2024 10/26/2024 benzonatate (Tessalon) 200 MG capsule Take 1 capsule by mouth 3 times a day as needed for cough. 10/18/2024 Blood Glucose Monitoring Suppl (AdMobilize Verio Flex System) w/Device kit 09/19/2024 10/26/2024 carvedilol (Coreg) 12.5 MG tablet Take 1 tablet by mouth 2 times a day with meals. 10/25/2024 ciclopirox (Penlac) 8 % solution Apply over affected nail fold daily. 10/26/2024 Continuous Glucose Dyer Helper (Dexcom G7 Dyer Helper) device USE TO MEASURE BLOOD SUGAR DIRECTED 09/29/2024 10/26/2024 Continuous Glucose Sensor (Dexcom G6 Sensor) [facility] USE DIRECTED TO MEASURE BLOOD SUGAR. REPLACE [...] Can be adjusted per the MD at [facility] 09/09/2024 10/18/2024 insulin lispro (Admelog, HumaLOG) 100 UNIT/ML injection pen 09/19/2024 10/15/2024 Insulin Lispro (Admelog, HumaLOG) 100 UNIT/ML injection vial Inject 15 Units under the skin 3 times a day with meals. Can be adjusted per the MD at [facility] 09/09/2024 10/18/2024 Lantus SoloStar 100 UNIT/ML [...] Take 1 tablet by mouth nightly. 11/16/2024 documented as of this encounter Miscellaneous [...] reviewed patient and agree with student records specialist --Floyd Mo PharmD documented in this encounter Plan of Treatment Upcoming Encounters Date Type Department Care Team (Late st Contact Info) Description 11/29/2024 10:30 AM EDT Clinical Support [facility] [address] [facility], [address]nd [place] [address] 11/29/2024 11:00 AM EDT Office Visit [facility] [address] [facility], [address]nd [place] [address] Satnam Colvin MD [address] [facility] [address] [place] [phone] 11/29/2024 12:30 PM EDT Appointment [facility] [address] [place] [address] 11/30/2024 1:30 PM EDT Appointment [facility] [address] [place] [address] 12/01/2024 2:00 PM EDT Appointment [facility] [address] [place] [phone] 12/06/2024 11:40 AM EDT Appointment [facility] Radiation [address] [facility]. [id number] [place] [address] Haven Blum, CERTIFIED OPHTHALMIC TECHNOLOGIST [address] [facility] [address] [place] [phone] 01/19/2025 9:30 AM EDT Appointment [facility] [address], [address]st [place] [address] 01/19/2025 10:45 AM EDT Office Visit [place] [facility] [address], [address] [place] [address] Abhilash Bangura MD [address] [place] [phone] 03/08/2025 1:00 PM EDT Office Visit [facility] [place] [address] [place] [phone] Teresita Oconnell MD [address] [place] [address] documented as of this encounter [...] EDT 130 mg Atezolizumab-Hyaluronida se-tqjs (Tecentriq Hybreza) [id number] MG-UT/15ML injection solution 1,875 mg 1,875 mg, [...] documented as of this encounter Care Teams Contracts Paralegal Relationship Specialty Start Date End Date Laurie Gutierrez MD [address] [place] [address] PCP - General 12/09/23 Joshua Martínez MD [address] [place] [address] Consulting Physician Radiation Oncology 09/19/24 documented as of this encounter
--- OUTSIDE RECORDS SUMMARY | 2024-10-05 14:13 | XMS_ITS | Encounter Summary ---
Author Organization [facility] Address [address] [place] [address] Care Team Providers Care Classified Advertising Clerk Name Role Phone Laurie Gutierrez MD Primary Care Provider [phone] Joshua Martínez MD Unavailable Reason for Visit * Episode Based Medications (Routine) - Authorized Specialty Diagnoses / Procedures Referred By Contac t Referred To Contact Diagnoses Extensive stage primary small cell carcinoma of lung Procedures CARBOplatin / Etoposide Daily x 3 / Atezolizumab Every 21 Days Satnam Colvin MD [address] [facility] Nuria Degroot [address] [address] Phone: tel: fax: Satnam Colvin MD 800 [facility] Nuria Degroot [address] [address] Phone: tel: fax: Referral ID Status Reason Start Date Expiration Date V isits Requested Visits Authorized [id number] Authorized 10/04/2024 04/05/2026 1 16 Encounter Details Date Type Department Care Team (Latest Contact Info) Description 10/05/2024 2:13 PM EDT - 10/05/2024 11:59 PM EDT Hospital Encounter [facility] Infusion [address] [place] [address] Extensive stage primary small cell carcinoma of [...] money to buy more. Never true 10/15/19 Within the past 12 months, t he [...] place to sleep or slept in a fdc (including now)? No 11/20/2023 PHQ-9 Answer Date [...] any time in the past 12 m [facility], were you homeless or living in a fdc (including now)? No 10/14/2024 CAGE ASSESSMENT Answer [...] drink first t laurie in the morning (EYE-ENGINEERING TECHNICAL ANALYST) to steady your nerves or to [...] Reading Time Taken Comments Blood Pressure 115/62 10/05/2024 5:52 PM EDT Pulse 76 10/05/2024 5:52 PM EDT Temperature 37 C (98.6 F) 10/05/2024 2:20 PM EDT Respiratory Rate 16 10/05/2024 5:52 PM EDT Oxygen Saturation 96% 10/05/2024 2:20 PM EDT Inhaled Oxygen Concentration - - Weight 118 kg (261 lb 0.4 oz) 10/05/2024 2:20 PM EDT Height 170.2 cm (5' 7 ) 10/05/2024 2:20 PM EDT Body Mass Index 40.88 10/05/2024 2:20 PM EDT documented in this encounter Functional Status * Calculated C-SSRS Risk Score (Lifetime/Recent) Answer Date of Assessment Author No Risk Indicated 10/13/2024 8:00 AM EDT Zhane Magallanes * Question Answer Date of Assessment Author [...] MINI PEN NEEDLES 31G X 5 MM [facility] 09/19/2024 10/26/2024 benzonatate (Tessalon) 200 MG capsule Take 1 capsule by mouth 3 times a day as needed for cough. 10/18/2024 Blood Glucose Monitoring Suppl (Gen9 Verio Flex System) w/Device kit 09/19/2024 10/26/2024 carvedilol (Coreg) 12.5 MG tablet Take 1 tablet by mouth 2 times a day with meals. 10/25/2024 ciclopirox (Penlac) 8 % solution Apply over affected nail fold daily. 10/26/2024 Continuous Glucose Barrer And Tacker (TeachStreetcom G7 Barrer And Tacker) device USE TO MEASURE BLOOD SUGAR DIRECTED 09/29/2024 10/26/2024 Continuous Glucose Sensor (Dexcom G6 Sensor) [facility] USE DIRECTED TO MEASURE BLOOD SUGAR. REPLACE [...] Can be adjusted per the MD at [facility] 09/09/2024 10/18/2024 insulin lispro (Admelog, HumaLOG) 100 UNIT/ML injection pen 09/19/2024 10/15/2024 Insulin Lispro (Admelog, HumaLOG) 100 UNIT/ML injection vial Inject 15 Units under the skin 3 times a day with meals. Can be adjusted per the MD at [place] 09/09/2024 10/18/2024 Lantus SoloStar 100 UNIT/ML injection [...] evening. 11/16/2024 documented as of this encounter Plan of Treatment Upcoming Encounters Date Type Department Care Team (Late st Contact Info) Description 11/29/2024 10:30 AM EDT Clinical Support [facility] [address] [facility], 2nd [place] [address] 11/29/2024 11:00 AM EDT Office Visit [facility] [address] [facility], 2nd [place] [address] Satnam Colvin MD [address] [facility] Nuria Degroot [facility] [address] [place] [address] 11/29/2024 12:30 PM EDT Appointment [facility] [address] [place] [address] 11/30/2024 1:30 PM EDT Appointment [facility] [address] [place] [address] 12/01/2024 2:00 PM EDT Appointment [facility] [address] [place] [address] 12/06/2024 11:40 AM EDT Appointment [facility] Radiation [address] [facility]. [id number] [place] [address] Haven Blum, CASINO PORTER [address] [facility] [address] [place] [address] 01/19/2025 9:30 AM EDT Appointment [facility] Radiology [address], 1st [place] [address] 01/19/2025 10:45 AM EDT Office Visit [place] [facility] [address], [address] [place] [address] Abhilash Bangura MD [address] [place] [address] 03/08/2025 1:00 PM EDT Office Visit [facility] [place] Wenceslao [address] [place] [address] Teresita Oconnell MD [address] [place] [address] documented as of this encounter Visit Diagnoses Diagnosis Extensive stage primary small cell carcinoma of lung- Primary documented in this encounter Administered Medications Inactive Administered Medications - up to 3 most recent administrations Medication Order MAR Action Action Date Dose Rate Site etoposide (Toposar) 220 mg in sodium chloride 0.9 % 500 mL IVPB 220 mg (rounded from 226 mg = 100 mg/m2 2.26 m2 Treatment Plan BSA from Recorded weight), Intravenous, at 576 mL/hr, Administer over 1 Hours, Once, Hazardous Drug-Tier 1 Precautions. Dispose in BLACK Hazardous Waste Container. Use 0.2 micron filter. Chemotherapy: refer to A14-065., On Thu10/05/24 at 1645, For 1 dose, NS 500 mL; Precipitation may occur with concentrations >0.4 mg/mL. Larger diluent volumes may be warranted dependent upon the patient's weight.Indications:Extensive stage primary small cell carcinoma of lung New Bag 10/05/2024 4:53 PM EDT 220 mg 576 mL/hr ondansetron ODT (Zofran-ODT) disintegrating tablet 16 mg 16 mg, Oral, Once, 1 dose, On Thu10/05/24 at 1615, RoutineIndications:Extensive stage primary small cell carcinoma of lung Given 10/05/2024 3:56 PM EDT 16 mg documented in this encounter Additional Health Concerns Assessment Noted Time PHQ-9 Depression Total Score: 0 09/01/19 3:26 PM EDT A fall risk assessment has been complete d for the patient 10/05/2024 2:20 PM EDT A Body Mass Index follow-up plan has been documented for the patient 10/04/2024 1:42 PM EDT documented as of this encounter Care Teams Classified Advertising Clerk Relationship Specialty Start Date End Date Laurie Gutierrez MD [address] [place] [address] PCP - General 12/09/23 Joshua Martínez MD [address] [place] [phone] Consulting Physician Radiation Oncology 09/19/24 documented as of this encounter
--- OUTSIDE RECORDS SUMMARY | 2024-10-05 14:13 | XMS_ITS | Encounter Summary ---
Author Organization [facility] Address [address] [place] [address] Care Team Providers Care Android Software Engineer Name Role Phone Laurie Gutierrez MD Primary Care Provider [phone] Joshua Martínez MD Unavailable Reason for Visit * Episode Based Medications (Routine) - Authorized Specialty Diagnoses / Procedures Referred By Contac t Referred To Contact Diagnoses Extensive stage primary small cell carcinoma of lung Procedures CARBOplatin / Etoposide Daily x 3 / Atezolizumab Every 21 Days Satnam Colvin MD 800 [facility] Nuria Degroot [address] [address] Phone: tel: fax: Satnam Colvin MD 800 [facility] Nuria Degroot [address] [address] Phone: tel: fax: Referral ID Status Reason Start Date Expiration Date V isits Requested Visits Authorized [id number] Authorized 10/04/2024 04/05/2026 1 16 Encounter Details Date Type Department Care Team (Latest Contact Info) Description 10/05/2024 2:13 PM EDT - 10/05/2024 11:59 PM EDT Hospital Encounter [facility] [address] [place] [address] Extensive stage primary small cell carcinoma of [...] any time in the past 12 m [facility], were you homeless or living in a intermediate (including now)? No 10/14/2024 CAGE ASSESSMENT Answer [...] drink first t laurie in the morning (EYE-MOTOR BUILDER ASSEMBLER) to steady your nerves or to get [...] MINI PEN NEEDLES 31G X 5 MM [facility] 09/19/2024 10/26/2024 benzonatate (Tessalon) 200 MG capsule Take 1 capsule by mouth 3 times a day as needed for cough. 10/18/2024 Blood Glucose Monitoring Suppl (Connexity Verio Flex System) w/Device kit 09/19/2024 10/26/2024 carvedilol (Coreg) 12.5 MG tablet Take 1 tablet by mouth 2 times a day with meals. 10/25/2024 ciclopirox (Penlac) 8 % solution Apply over affected nail fold daily. 10/26/2024 Continuous Glucose Patent Prosecution Attorney (Dexcom G7 Patent Prosecution Attorney) device USE TO MEASURE BLOOD SUGAR DIRECTED 09/29/2024 10/26/2024 Continuous Glucose Sensor (Dexcom G6 Sensor) [facility] USE DIRECTED TO MEASURE [...] Can be adjusted per the MD at [facility] 09/09/2024 10/18/2024 insulin lispro (Admelog, HumaLOG) 100 UNIT/ML injection pen 09/19/2024 10/15/2024 Insulin Lispro (Admelog, HumaLOG) 100 UNIT/ML injection vial Inject 15 Units under the skin 3 times a day with meals. Can be adjusted per the MD at [facility] 09/09/2024 10/18/2024 Lantus SoloStar 100 UNIT/ML [...] nightly. 11/16/2024 documented as of this encounter Plan of Treatment Upcoming Encounters Date Type Department Care Team (Late st Contact Info) Description 11/29/2024 10:30 AM EDT Clinical Support [facility] Head[facility] Neck [facility] Respiratory [address] [facility], 2nd [place] [address] 11/29/2024 11:00 AM EDT Office Visit [facility] Res[facility] [address] [facility], 2nd [place] [address] Satnam Colvin MD [address] [facility] Nuria Degroot [facility] [address] [place] [address] 11/29/2024 12:30 PM EDT Appointment [facility] [address] [place] [address] 11/30/2024 1:30 PM EDT Appointment [facility] [address] [place] [address] 12/01/2024 2:00 PM EDT Appointment [facility] [address] [place] [address] 12/06/2024 11:40 AM EDT Appointment [facility] Radiation [address] [facility]. [id number] [place] [address] Haven Blum, MACHINE SETTER AUTOMATIC [address] [facility] [address] [place] [address] 01/19/2025 9:30 AM EDT Appointment [facility] S Radiology [address], 1st [place] [address] 01/19/2025 10:45 AM EDT Office Visit [place] [facility] [address], 1st [place] [address] Abhilash Bangura MD [address] [place] [address] 03/08/2025 1:00 PM EDT Office Visit [facility] [place] W[place] [address] [place] [address] Teresita Oconnell MD [address] [place] [address] documented as of this encounter [...] documented as of this encounter Care Teams Android Software Engineer Relationship Specialty Start Date End Date Laurie Gutierrez MD [address] [place] [address] PCP - General 12/09/23 Joshua Martínez MD [address] [place] [phone] Consulting Physician Radiation Oncology 09/19/24 documented as of this encounter
--- OUTSIDE RECORDS SUMMARY | 2024-10-06 14:22 | XMS_ITS | Encounter Summary ---
Author Organization [facility] Address [address] [place] [address] Care Team Providers Care Hardwood Floor Refinisher Name Role Phone Laurie Gutierrez MD Primary Care Provider [phone] Joshua Martínez MD Unavailable Reason for Visit * Episode Based Medications (Routine) - Authorized Specialty Diagnoses / Procedures Referred By Contac t Referred To Contact Diagnoses Extensive stage primary small cell carcinoma of lung Procedures CARBOplatin / Etoposide Daily x 3 / Atezolizumab Every 21 Days Satnam Colvin MD 800 [facility] Nuria Degroot [address] [address] Phone: tel: fax: Satnam Colvin MD [address] [facility] Nuria Degroot [address] [address] Phone: tel: fax: Referral ID Status Reason Start Date Expiration Date V isits Requested Visits Authorized [id number] Authorized 10/04/2024 04/05/2026 1 16 Encounter Details Date Type Department Care Team (Latest Contact Info) Description 10/06/2024 2:22 PM EDT - 10/06/2024 11:59 PM EDT Hospital Encounter [facility] Infusion [address] [place] [address] Extensive stage primary small cell carcinoma of [...] No 09/06/2024 Housing Stability Vital Sign Answer Gregro e Recorded In the last 12 months, [...] place to sleep or slept in a care home (including now)? No 11/20/2023 PHQ-9 Answer [...] any time in the past 12 m [facility], were you homeless or living in a care home (including now)? No 09/06/2024 CAGE ASSESSMENT [...] drink first t laurie in the morning (EYE-BANKRUPTCY LEGAL ASSISTANT) to steady your nerves or to get rid of a hangover? 0 11/19/2023 CAGE Questionnaire Score 0 024 Utilities Answer Date Recorded In the past 12 months has th e Food[employer], gas, oil, or water company threatened to shut off services in your home? No 09/06/2024 Comments No Sex and Gender Information Value Date Recorded Sex Assigned at Not on file Legal Sex Female 8:32 PM EDT Gender Identity Not on file Sexual Orientation Not on file documented as of this encounter Last Filed Vital Signs Vital Sign Reading Time Taken Comments Blood Pressure 111/65 10/06/2024 4:12 PM EDT Pulse 90 10/06/2024 4:12 PM EDT Temperature 36.3 C (97.3 F) 10/06/2024 2:29 PM EDT Respiratory Rate 18 10/06/2024 2:29 PM EDT Oxygen Saturation 96% 10/06/2024 2:29 PM EDT Inhaled Oxygen Concentration - - Weight 119 kg (262 lb 12.6 oz) 10/06/2024 2:29 P M EDT Height 170.2 cm (5' 7 ) 10/06/2024 2:29 PM EDT Body Mass Index 41.16 10/06/2024 2:29 PM EDT documented in this encounter Medications [...] for cough. 10/18/2024 Blood Glucose Monitoring Suppl (Startcappsio Flex System) w/Device kit 09/19/2024 10/26/2024 carvedilol (Coreg) 12.5 MG tablet Take 1 tablet by mouth 2 times a day with meals. 10/25/2024 ciclopirox (Penlac) 8 % solution Apply over affected nail fold daily. 10/26/2024 Continuous Glucose Metallurgical Lab Technician (Dexcom G7 Metallurgical Lab Technician) device USE TO MEASURE BLOOD SUGAR [...] adjusted per the MD at [facility] 09/09/2024 10/18/2024 insulin lispro (Admelog, HumaLOG) 100 UNIT/ML injection pen 09/19/2024 10/15/2024 Insulin Lispro (Admelog, HumaLOG) 100 UNIT/ML injection vial Inject 15 Units under the skin 3 times a day with meals. Can be adjusted per the MD at [facility] 09/09/2024 10/18/2024 Lantus SoloStar 100 UNIT/ML [...] Upcoming Encounters Date Type Department Care Team ([facility] Contact Info) Description 11/29/2024 10:30 AM EDT Clinical Support [facility] Head[facility] Neck & Respiratory [address] [facility], [address]nd [place] [address] 11/29/2024 11:00 AM EDT Office Visit [facility] Head[facility] Neck & Respiratory [address] [facility], [address] [place] [address] Satnam Colvin MD [address] [facility] [address] [place] [address] 11/29/2024 12:30 PM EDT Appointment [facility] [address] [place] [address] 11/30/2024 1:30 PM EDT Appointment [facility] [address] [place] [address] 12/01/2024 2:00 PM EDT Appointment [facility] [address] [place] [address] 12/06/2024 11:40 AM EDT Appointment [facility] Radiation [address] [facility]. [id number] [place] [address] Haven Blum, RISK PREVENTION ENGINEER [address] [place] [address] 01/19/2025 9:30 AM EDT Appointment [facility] Radiology [address], 1st [place] [address] 01/19/2025 10:45 AM EDT Office Visit [place] [facility] [address], [address]st [place] [address] Abhilash Bangura MD [address] [place] [address] 03/08/2025 1:00 PM EDT [facility] Visit [facility] [place] Wenceslao [address] [place] [phone] Teresita Oconnell MD [address] [place] [address] documented as of this encounter [...] micron filter. Chemotherapy: refer to A14-065., On Corrina 10/06/24 at 1530, For 1 dose, NS 500 mL; Precipitation may occur with concentrations >0.4 mg/mL. Larger diluent volumes may be warranted dependent upon the patient's weight.Indications:Extensive stage primary small cell carcinoma of lung New Bag 10/06/2024 3:12 PM EDT 220 mg 576 mL/hr ondansetron ODT (Zofran-ODT) disintegrating tablet 16 mg 16 mg, Oral, Once, 1 dose, On Corrina 10/06/24 at 1500, RoutineIndications:Extensive stage primary small cell carcinoma of lung Given 10/06/2024 2:56 PM EDT 16 mg documented in this encounter Additional Health Concerns Assessment Noted Time PHQ-9 Depression Total Score: 0 09/01/19 3:26 PM EDT A fall risk assessment has been complete d for the patient 10/06/2024 2:29 PM EDT A Body Mass Index follow-up plan has been documented for the patient 10/04/2024 1:42 PM EDT documented as of this encounter Care Teams Hardwood Floor Refinisher Relationship Specialty Start Date End Date Laurie Gutierrez MD [address] [place] [address] PCP - General 12/09/23 Joshua Martínez MD [address] [place] [phone] Consulting Physician Radiation Oncology 09/19/24 documented as of this encounter
--- OUTSIDE RECORDS SUMMARY | 2024-10-06 14:22 | XMS_ITS | Encounter Summary ---
Author Organization [facility] Address [address] [place] [address] Care Team Providers Care Angiographer Name Role Phone Laurie Gutierrez MD Primary Care Provider [phone] Joshua Martínez MD Unavailable Reason for Visit * Episode Based Medications (Routine) - Authorized Specialty Diagnoses / Procedures Referred By Contac t Referred To Contact Diagnoses Extensive stage primary small cell carcinoma of lung Procedures CARBOplatin / Etoposide Daily x 3 / Atezolizumab Every 21 Days Satnam Colvin MD [address] [facility] Nuria Degroot [address] [address] Phone: tel: fax: Satnam Colvin MD [address] [facility] Nuria Degroot [address] [address] Phone: tel: fax: Referral ID Status Reason Start Date Expiration Date V isits Requested Visits Authorized [id number] Authorized 10/04/2024 04/05/2026 1 16 Encounter Details Date Type Department Care Team (Latest Contact Info) Description 10/06/2024 2:22 PM EDT - 10/06/2024 11:59 PM EDT Hospital Encounter [facility] [address] [place] [address] Extensive stage primary small cell carcinoma of [...] any time in the past 12 m [facility], were you homeless or living in a [...] drink first t laurie in the morning (EYE-WEB MARKETING STRATEGIST) to steady your nerves or to get rid of a hangover? 0 11/19/2023 CAGE Questionnaire Score 0 024 Utilities Answer Date Recorded In the past 12 months has th e [employer], gas, oil, or water company threatened to [...] for cough. 10/18/2024 Blood Glucose Monitoring Suppl (JumpPost Verio Flex System) w/Device kit 09/19/2024 10/26/2024 carvedilol (Coreg) 12.5 MG tablet Take 1 tablet by mouth 2 times a day with meals. 10/25/2024 ciclopirox (Penlac) 8 % solution Apply over affected nail fold daily. 10/26/2024 Continuous Glucose Residential Designer (Dexcom G7 Residential Designer) device USE TO MEASURE BLOOD SUGAR DIRECTED [...] Can be adjusted per the MD at [facility] 09/09/2024 10/18/2024 insulin lispro (Admelog, HumaLOG) 100 UNIT/ML injection pen 09/19/2024 10/15/2024 Insulin Lispro (Admelog, HumaLOG) 100 UNIT/ML injection vial Inject 15 Units under the skin 3 times a day with meals. Can be adjusted per the MD at [facility] 09/09/2024 10/18/2024 Lantus SoloStar 100 UNIT/ML injection [...] Upcoming Encounters Date Type Department Care Team ([facility] Contact Info) Description 11/29/2024 10:30 AM EDT Clinical Support [facility] [address] [facility], [address]nd [place] [address] 11/29/2024 11:00 AM EDT Office Visit [facility] [address] [facility], [address] [place] [address] Satnam Colvin MD [address] [facility] [address] [place] [address] 11/29/2024 12:30 PM EDT Appointment [facility] [address] [place] [address] 11/30/2024 1:30 PM EDT Appointment [facility] [address] [place] [address] 12/01/2024 2:00 PM EDT Appointment [facility] [address] [place] [address] 12/06/2024 11:40 AM EDT Appointment [facility] Radiation [address] [facility]. [id number] [place] [address] Haven Blum, PENAL OFFICER [address] [place] [address] 01/19/2025 9:30 AM EDT Appointment [facility] Radiology [address], [address] [place] [address] 01/19/2025 10:45 AM EDT Office Visit [place] [facility] [address], [address] [place] [address] Abhilash Bangura MD [address] [place] [address] 03/08/2025 1:00 PM EDT Office Visit [facility] [place] [address] [place] [phone] Teresita Oconnell MD [address] [place] [address] documented as of this encounter [...] documented as of this encounter Care Teams Angiographer Relationship Specialty Start Date End Date Laurie Gutierrez MD [address] [place] [address] PCP - General 12/09/23 Joshua Martínez MD [address] [place] [phone] Consulting Physician Radiation Oncology 09/19/24 documented as of this encounter
--- OUTSIDE RECORDS SUMMARY | 2024-10-12 16:08 | XMS_ITS | Encounter Summary ---
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 Role Phone Laurie Gutierrez MD Primary Care Provider [phone] Joshua Martínez MD Unavailable Reason for Visit * Reason Comments Dizziness * Auth/Cert (Routine) Specialty Diagnoses / Procedures Referred By Contac t Referred To Contact Diagnoses Febrile neutropenia (CMS/HCC) Berto Stanford, DO [address] [place] [address] Phone: tel: fax: [facility] [address] [place] [address] Phone: tel: Referral ID Status Reason Start Date Expiration Date Visits Re quested Visits Authorized [id number] 1 1 Encounter Details Date Type Department Care Team (Latest Contact Info) Description 10/12/2024 4:08 PM EDT - 10/18/2024 12:48 PM EDT Hospital Encounter [facility] Inpatient [address] [place] [address] Shekhar Ledezma MD [address] [place] [address] Berto Stanford DO [address] [place] [address] Hyacinth Perkins MD [address] [place] [address] Claudia Cali, Unknown, [address] [place] [address] Febrile neutropenia (CMS/HCC) (Primary Dx); Hypomagnesemia Discharge Disposition: Home or Self Care Social [...] any time in the past 12 m [facility], were you homeless or living in [...] drink 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 0 11/19/2023 CAGE Questionnaire Score 0 024 Utilities Answer Date Recorded In the past 12 months has e [employer], gas, oil, or water company threatened to shut off services in your home? No 10/14/2024 Comments No Sex and Gender Information Value Date Recorded Sex Assigned at Not on file Legal Sex Female 8:32 PM EDT Gender Identity Not on file Sexual Orientation Not on file documented as of this encounter Last Filed Vital Signs Vital Sign Reading Time Taken Comments Blood Pressure 96/86 10/18/2024 11:00 AM EDT Pulse 92 10/18/2024 11:00 AM EDT Temperature 37.6 C (99.7 F) 10/18/2024 11:00 AM EDT Respiratory Rate 18 10/18/2024 11:00 AM EDT Oxygen Saturation 92% 10/18/2024 11:00 AM EDT Inhaled Oxygen Concentration - - Weight 119 kg (262 lb) 10/12/2024 3:30 PM EDT Height 170.2 cm (5' 7 ) 10/12/2024 3:30 PM EDT Body Mass Index 41.04 10/12/2024 3:30 PM EDT documented in this encounter Functional Status * Calculated C-SSRS Risk Score (Lifetime/Recent) Answer Date of Assessment Author No Risk Indicated 10/18/2024 8:00 AM EDT Jeni Rouse * Question Answer Date of Assessment Author 1. Wish to be (Past 1 Month) No 025 8:00 AM EDT Jeni Clark 2. Non-Specific Active Suici radha Thoughts (Past 1 Month) No 10/18/2024 8:00 AM EDT Keo Clark 6. Suicidal Behavior (Lifetime) No 8:00 AM EDT Jeni Clark documented as of this encounter Medications at Time of Discharge atorvastatin (Lipitor) 40 MG tablet Take 1 tablet by mouth every evening. benzonatate (Tessalon) 100 MG capsule Take 1 capsule by mouth 3 times a day as needed for cough. Do not crush or chew. 20 capsule 10/18/2024 Budeson-Glycopyr rol-Formoterol (Breztri Aerosphere) 160-9-4.8 MCG/ACT aerosol Inhale 2 puffs 2 (two) times a day. Calcium Carb-Cholecalcif anne 600-10 MG-MCG tablet Take 1 tablet by mouth daily. calcium carbonate (Tums) 500 MG chewable tablet Chew 1 tablet 4 times a day as needed for indigestion or heartburn. cetirizine (ZyrTEC) 10 MG tablet Take 1 tablet by mouth daily. ferrous sulfate 325 (65 Fe) MG tablet Take 1 tablet by mouth daily with breakfast. FLUoxetine (PROzac) 40 MG capsule Take 1 capsule by mouth daily. hydrOXYzine HCl (Atarax) 25 MG tablet Take 1 tablet by mouth 3 times a day as needed. magic mouthwash BLM (FIRST-Mouthwash ) suspension Swish and spit 15 mL 4 times a day before meals and nightly for 3 days. 180 mL 10/18/2024 magnesium oxide (Mag-Ox) 400 MG tablet Take [...] 1 tablet by mouth every evening. 5 Accu-Chek Softclix Lancets lancets USE TO TEST BLOOD SUGAR 3 TIMES EACH DAY 09/01/2024 5 Alcohol Swabs (Easy Touch Alcohol Prep Medium) 70 % pads 09/19/2024 5 B-D UF III MINI PEN NEEDLES 31G X [facility] 09/[facility]24 5 Blood Glucose Monitoring Suppl (Credivalores-Crediservicios Verio Flex System) w/Device kit 09/19/2024 5 carvedilol (Coreg) 12.5 MG tablet Take 1 tablet by mouth 2 times a day with meals. 5 ciclopirox (Penlac) 8 % solution Apply over affected nail fold daily. 5 Continuous Glucose Banana Expert (Livefyrecom G7 Banana Expert) device USE TO MEASURE BLOOD SUGAR DIRECTED 09/29/2024 5 Continuous Glucose Sensor (Dexcom G6 Sensor) mis USE DIRECTED TO MEASURE BLOOD SUGAR. REPLACE SENSOR EVERY 10 DAYS 09/01/2024 5 dexamethasone (Decadron) 2 MG tablet Take 1 tablet by mouth every 12 hours. 10 tablet 10/18/2024 5 FREESTYLE LITE test strip USE TO TEST BLOOD SUGAR 3 TIMES EACH DAY AND NEEDED 09/01/2024 gabapentin (Neurontin) 600 MG tablet Take 1 tablet by mouth 4 times a day. 5 insulin glargine-yfgn 100 UNIT/ML injection vial Inject 20 Units under the skin nightly. 10 mL 3 10/18/2024 5 Insulin Lispro (Admelog, HumaLOG) 100 UNIT/ML injection vial Inject 15 Units under the skin 3 times a day with meals. Can be adjusted per the MD at [facility] 10 mL 12 10/18/2024 5 Lantus SoloStar 100 UNIT/ML injection pen Inject under the skin 2 times a day. 10/18/2024 5 lidocaine (Xylocaine) 2 % solution Take 5 mL by mouth as needed for mild pain. 10/18/2024 nystatin (Mycostatin) 200529 UNIT/ML suspension Swish and swallow 5 mL 4 times a day for 39 doses. 195 mL 10/18/2024 5 ondansetron (Zofran) 8 MG tablet Take 1 tablet by mouth every 8 hours as needed for nausea or vomiting. 5 ondansetron (Zofran) 8 MG tabletIndication s:Extensive stage primary small cell carcinoma of lung Take 1 tablet by mouth 2 times a day. Take on Day 4 of cycle and then take PRN 30 tablet 5 10/04/2024 5 prochlorperazine (Compazine) 10 MG tabletIndication s:Extensive stage primary small cell carcinoma of lung Take 1 tablet by mouth every 6 hours as needed for nausea or vomiting. 30 tablet 3 10/04/2024 5 tiZANidine (Zanaflex) 2 MG tablet Take 1 tablet by mouth nightly. 5 documented as of this encounter Miscellaneous Notes * Jeni Galeano - 10/18/2024 11:49 AM EDT Images from the original note were not included. [id number] Living with Lung Cancer When living with lung cancer, you need to do all you can to stay strong. Try to maintain your weight by eating plenty of healthy food. And try to stay active. Being active helps improve both your physical and mental health. Taking these steps can also help limit certain side effects of your treatment. Eating enough food Try to maintain your weight. If you?re having trouble keeping weight on, eat foods that are high inprotein and calories. These include nuts, cheese, beans, fish, or chicken. Ice cream, peanut butter, and eggs are good choices, too. Try eating many small meals daily rather than three big meals. Talk with your healthcare provider if you?ve lost your appetite. You may be given medicine that canhelp you feel like eating again. Ask to meet with a dietitian if you're not sure what to eat. This nutrition faculty member can teach you tips on how to get the nutrients your body needs to cope with cancer and cancer treatment. It you have trouble swallowing liquids or food, a speech therapist can teach you swallowing exercises and ways to help you eat safely. Staying active Physical activity is good for both your body and mind. It can help you sleep better, boost your energy, and enjoy a sense of well-being. Staying active also reduces side effects, such as nausea and extreme tiredness. Try to be active only when you feel energetic and rested. Just be careful not to overdo it. Choose light or moderate activities. Ask your healthcare provider what exercises are safe for you. These may include stretching, walking, swimming, or bicycling. You may be at risk of falling if you are extremely tired, or have balance problems, numbness in your feet, or dizziness. Ask to meet with a physical or occupational therapist to learn tips on how to prevent falling while getting physical activity. To learn more Learning more about your illness can help you be more in control of your treatment. To find out more about lung cancer, contact the following: ? Lung Cancer [place] at www.lungcanceralliance.org or 622-504-2027 ? [place] [employer] at www.cancer.org or 576-646-0804 ? [place] [employer] at lung.org or 787-516-6755 ? National Cancer [place] at www.cancer.gov or 710-777-7593 Last Reviewed Date: 2022 00:00:00 ?? [id number] [employer]. All rights reserved. This information is not intended as a substitute for professional medical care. Always follow your healthcare professional's instructions. * Care Plan - Jeni Clrak - 10/18/2024 11:17 AM EDT Problem: Adult Inpatient Plan of Care Goal: Plan of Care Review Outcome: Met Flowsheets (Taken 10/18/2024 1116) Progress: improving Plan of Care Reviewed With: patient Goal: Patient-Specific Goal (Individualized) Outcome: Met Goal: Absence of Hospital-Acquired Illness or Injury Outcome: Met Goal: Optimal Comfort and Wellbeing Outcome: Met Goal: Readiness for Transition of Care Outcome: Met * Discharge Summary - Radha Slaughter MD - 10/18/2024 10:46 AM EDT Images from the original note were not included. Hospitalization Admit Date/Time: 10/12/2024 4:08 PM Admitting Attending: Berto Stanford Discharge Date: 10/18/2024 Discharge Attending Physician: Claudia Cali MD PCP name and Address: Laurie Gutierrez MD [address] [place] [address] Referring provider name and address: No referring provider defined for this encounter. Chief Concern, Brief History of Present Illness, and Hospital Course Teresa Rivera is a 63 y.o. 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 NSGY was consulted and recommend LP, IR guided LP 10/14, negative for meningitis. CT Chest with new nodular opacity in Right lower lobe concerning for infection. On antibiotics for CAP. Patient is medically stable for discharge. To followup with [facility] as [facility] for cancer care. Discharge Diagnosis: Sepsis with febrile severe neutropenia due to CAP. 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 Will continue to follow with Dr Dunne for ongoing cancer care. Paroxysmal atrial fibrillation with RVR, history of atrial flutter s/p CTI ablation (11/2023) RVR has resolved. Now rate controlled on home carvedilol. Will continue as outpatient. Home Xareltoalso resumed. Oral Thrush and Angular Cheilitis Improved with nystatin treatment but not completely resolved. Will continue treatment for 3 more days with Nystatin and magic mouthwash. Chemotherapy-induced anemia and thrombocytopenia Received filgrastim and no longer neutropenic and counts climbing. WBC >4, Hgb >9.5m and plt >50 at discharge. Mild hyponatremia- resolved Hypomagnesemia- resolved Chronic medical conditions - T2DM- Home insulin therapy adjusted down. May need revisited at next PCP appt if gluc increased. - HTN- home therapy continued - Chronic pain- home therapy continued - COPD- home inhaled meds continued - Mood Disorder-home therapy continued - HLD- home therapy continued - Obesity, class III (BMI 41) Surgeries and Procedures none Medication List .. Accu-Chek Softclix Lancets lancets USE TO TEST BLOOD SUGAR 3 TIMES EACH DAY atorvastatin 40 MG tablet Commonly known as: Lipitor Take 1 tablet by mouth daily. B-D UF III MINI PEN NEEDLES 31G X 5 MM misc Generic drug: pen needle, diabetic benzonatate 100 MG capsule Commonly known as: Tessalon Take 1 capsule by mouth 3 times a day as needed for cough. Do not crush or chew. Breztri Aerosphere 160-9-4.8 MCG/ACT aerosol Generic drug: Hfkzxal-Wowueedncro-Jlztpzydlc Inhale 2 puffs 2 (two) times a day. Calcium Carb-Cholecalciferol 600-10 MG-MCG tablet Take 600 mg by mouth daily. calcium carbonate 500 MG chewable tablet Commonly known as: Tums Chew 1 tablet 4 times a day as needed for indigestion or heartburn. carvedilol 12.5 MG tablet Commonly known as: Coreg Take 1 tablet by mouth 2 times a day with meals. cetirizine 10 MG tablet Commonly known as: ZyrTEC Take 1 tablet by mouth daily. ciclopirox 8 % solution Commonly known as: Penlac Apply over affected nail fold daily. Cyanocobalamin ER 1000 MCG tablet controlled-release Take 1 tablet by mouth Daily. dexamethasone 2 MG tablet Commonly known as: Decadron Take 1 tablet by mouth every 12 hours. Dexcom G6 Sensor misc USE DIRECTED TO MEASURE BLOOD SUGAR. REPLACE SENSOR EVERY 10 DAYS Easy Touch Alcohol Prep Medium 70 % pads empagliflozin 25 MG Commonly known as: Jardiance Take 1 tablet by mouth daily. ferrous sulfate 325 (65 Fe) MG tablet Take 1 tablet by mouth daily with breakfast. FLUoxetine 40 MG capsule Commonly known as: PROzac Take 1 capsule by mouth daily. FREESTYLE LITE test strip Generic drug: glucose blood USE TO TEST BLOOD SUGAR 3 TIMES EACH DAY AND NEEDED gabapentin 600 MG tablet Commonly known as: Neurontin Take 1 tablet by mouth 4 times a day. hydrOXYzine HCl 25 MG tablet Commonly known as: Atarax Take 1 tablet by mouth 3 times a day as needed. insulin glargine-yfgn 100 UNIT/ML injection vial Inject 20 Units under the skin nightly. Insulin Lispro 100 UNIT/ML injection vial Commonly known as: Admelog, HumaLOG Inject 15 Units under the skin 3 times a day with meals. Can be adjusted per the MD at [facility] magic mouthwash BLM suspension Swish and spit 15 mL 4 times a day before meals and nightly for 3 days. magnesium oxide 400 MG tablet Commonly known as: Mag-Ox Take 1 tablet by mouth 2 times a day. Hold for diarrhea melatonin tablet Take 2 tablets by mouth nightly. metFORMIN 1000 MG tablet Commonly known as: Glucophage Take 1 tablet by mouth 2 times a day with meals. montelukast 10 MG tablet Commonly known as: Singulair Take 1 tablet by mouth nightly. nystatin 995193 UNIT/ML suspension Commonly known as: Mycostatin Swish and swallow 5 mL 4 times a day for 39 doses. * ondansetron 8 MG tablet Commonly known as: Zofran Take 1 tablet by mouth every 8 hours as needed for nausea or vomiting. * ondansetron 8 MG tablet Commonly known as: Zofran Take 1 tablet by mouth 2 times a day. Take on Day 4 of cycle and then take PRN Colored SolarToYuanfen~Flow™ Flex System w/Device kit pantoprazole 40 MG EC tablet Commonly known as: Protonix Take 1 tablet by mouth daily. Do not crush, chew, or split. prochlorperazine 10 MG tablet Commonly known as: Compazine Take 1 tablet by mouth every 6 hours as needed for nausea or vomiting. rOPINIRole 1 MG tablet Commonly known as: Requip TAKE 1 TABLET 2 TIMES EACH DAY SITagliptin 50 MG tablet Commonly known as: Januvia Take 1 tablet by mouth daily. tiZANidine 2 MG tablet Commonly known as: Zanaflex Take 1 tablet by mouth nightly. triamterene-hydrochlorothiazide 37.5-25 MG tablet Commonly known as: Maxzide-25 Take 1 tablet by mouth every morning. Xarelto 20 MG tablet Generic drug: rivaroxaban Take 1 tablet by mouth every evening. * This list has 2 medication(s) that are the same as other medications prescribed for you. Read thedirections carefully, and ask your doctor or other care provider to review them with you. Where to Get Your Medications These medications were sent to [facility] - [place], [place] - 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 Eat as you are able and take all home diabetes medications as prescribed.Be sure to discuss glucose with PCP at next visit as your insulin was decreased while you were in the hospital and your sugar may increase again as your appetite and food intake get back to normal. Take the dexamethasone as prescribed until you follow up with Dr Martínez and be sure to discuss how long to continue at that visit. Outpatient Follow-Up Future Appointments Date Time Provider Department Center 10/20/2024 10:00 AM [facility] RAD ONC CT SIMULATOR [facility] 10/25/2024 11:45 AM [facility] 10/25/2024 12:00 PM [facility] Colvin [facility] 10/25/2024 1:30 PM [facility] 10/26/2024 3:30 PM [facility] 10/27/2024 3:30 PM [facility] 11/08/2024 1:30 PM August Arriola DO [facility] 03/08/2025 1:00 PM Teresita Oconnell MD [facility] Test Results Pending At Discharge Pending Labs Order Current Status Fungal Culture, Cerebrospinal Fluid (CSF) and Emily Ink Preliminary result Pertinent Physical Exam At Time of Discharge Physical Exam Discharge Disposition/Condition Disposition: Home Condition: Stable (s/sx potential problems absent or manageable) I spent >30 minutes of patient care and instruction time in preparation for this discharge. * Care Plan - Tim Oneal - 10/18/2024 12:13 AM EDT Problem: Adult Inpatient Plan of Care Goal: Plan of Care Review Outcome: Ongoing, Progressing Goal: Patient-Specific Goal (Individualized) Outcome: Ongoing, Progressing Goal: Absence of Hospital-Acquired Illness or Injury Outcome: Ongoing, Progressing Goal: Optimal Comfort and Wellbeing Outcome: Ongoing, Progressing Goal: Readiness for Transition of Care Outcome: Ongoing, Progressing Problem: Fall Injury Risk Goal: Absence of Fall and Fall-Related Injury Outcome: Ongoing, Progressing Problem: Pain Acute Goal: Optimal Pain Control and Function Outcome: Ongoing, Progressing * Hospital Course - Claudia Cali MD - 10/17/2024 3:39 PM EDT Teresa Rivera is a 63 y.o. 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 NSGY was consulted and recommend LP, IR guided LP 10/14, negative for meningitis. CT Chest with new nodular opacity in Right lower lobe concerning for infection. On antibiotics for CAP. Patient is medically stable for discharge. To followup with Julieta and Nena as OP for cancer care. Discharge Diagnosis: Sepsis with febrile severe neutropenia CAP H/O Small-cell lung cancer with mets to brain Paroxysmal atrial fibrillation with RVR, history of atrial flutter s/p CTI ablation (11/2023) Oral Thrush Angular Cheilitis Chemotherapy-induced anemia and thrombocytopenia Mild hyponatremia- resolved Hypomagnesemia- resolved Chronic medical conditions - T2DM - HTN - Chronic pain - COPD - Mood Disorder - HLD - Obesity, class III (BMI 41) * Progress Notes - Claudia Cali MD - 10/17/2024 3:35 PM EDT Subjective No acute events overnight. Patient seen by bedside. Labs, vitals, chart reviewed. Comfortably lying on bed. She looks forward for discharge tomorrow. No new concerns. Discussed care and answered all their questions to satisfaction. Review of Systems Constitutional: Negative for fatigue and fever. HENT: Negative. Respiratory: Positive for cough. Cardiovascular: Negative. Gastrointestinal: Negative. Psychiatric/Behavioral: Negative. Objective Physical Exam Constitutional: Appearance: Normal appearance. HENT: Head: Normocephalic and atraumatic. Nose: Nose normal. Mouth/Throat: Comments: Scattered white patch on tongue Eyes: Extraocular Movements: Extraocular movements intact. Pupils: Pupils are equal, round, and reactive to light. Cardiovascular: Rate and Rhythm: Normal rate and regular rhythm. Pulmonary: Effort: Pulmonary effort is normal. Breath sounds: Normal breath sounds. Abdominal: General: Abdomen is flat. Palpations: Abdomen is soft. Musculoskeletal: General: Normal range of motion. Cervical back: Normal range of motion. No rigidity. Neurological: General: No focal deficit present. Mental Status: She is alert and oriented to person, place, and time. Psychiatric: Mood and Affect: Mood normal. Behavior: Behavior normal. Last Recorded Vitals Blood pressure 112/69, pulse 95, temperature 36.8 ??C (98.3 ??F), resp. rate 20, height 1.702 m (5'7 ), weight 119 kg (262 lb), SpO2 92%. 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 NSGY was consulted and recommend LP, IR guided LP 10/14, negative for meningitis. CT Chest with new nodular opacity in Right lower lobe concerning for infection. On antibiotics for CAP. # Sepsis with febrile severe neutropenia # CAP --d/d bacterial pneumonia/Encephalitis(low suspicion)/Meningitis/bacteremia -WBC = 0.84, ANC = 30. Likely due to recent chemotherapy (Carboplatin/Etoposide/Atezolizumab every 21 days; last infusion 10/06). - T 101.6, HR 116, BP 107/68 on admission - CRP and procal elevated - nasopharyngeal PCR negative. CXR showed possible airspace disease and family reports cough. No urinary symptoms. -s/p 1 L fluid at ED -CTAP showed mild opacities within the left lung base which may represent atelectasis or mild aspiration/airspace disease. CXR showed right upper lobe airspace disease. -d/d bacterial pneumonia/Encephalitis(low suspicion)/bacteremia -CT chest Posterior right upper lobe scarring appears similar to comparison. New nodular opacities in the right lower lobe concerning for infection. Right medial right lower lobe pleural nodule measures 19 mm, previously 22 mm (series 4 image 271). No new suspicious nodule. No pleural effusion. -MRSA nares negative -blood cx NGTD, UA w/ reflex culture -CSF negative for meningitis Plan: Discontinue Amipicillin and Vancomycin as meningitis is ruled out Continue Cefepime to cover 5 days total for CAP, end date 10/18 Daily CBC/D Received Filgrastim 10/15-10/16. Counts improving ANC >1000. H/O Small-cell lung cancer with mets to brain: on chemotherapy -Primary Oncologist: Dr. Satnam Stratton -Regime: prev chemoRT (carbo/etop) completed September; following L frontal craniotomy 09/05 began C1 carbo/etop/atezolizumab 10/04 - 10/06 -had left frontal craniotomy on 09/05/24 for metastatic small-cell lung cancer. Completed Keppra andis currently on dexamethasone taper. -MRI head w/ and w/o ordered, no definite acute ischemic or hemorrhagic changes, post surgical changes PLAN: -NSGY consulted, appreciate recs, recommend LP, IR consulted, LP 10/14 negative viral panel PCR, cryptococcus Ag, negative organism - consult med onc, appreciate involvement, received Filgrastim 10/15-10/16. -Rad onc is reached out(Dr. Martínez), plan to re sim as pt's insurance denied SFRT, schedule outpatient -resume PO dexamethasone 2mg q12h (was previously set to end on 10/16/24) -resume Keppra 500mg BID # Paroxysmal atrial fibrillation with RVR, history of atrial flutter s/p CTI ablation (11/2023) - had atrial flutter s/p ablation without recurrence. Then developed afib. No longer on antiarrhythmic but remains on Xarelto. - Has had intermittent RVR in ED. Initially hypotensive with RVR but now remains normotensive afterIV fluid resuscitation. Converts back to sinus rhythm frequently. - Suspect RVR is in setting of acute illness -Echo EF 60%, 10/25/23. PLAN: -Resume Carvidilol and Xarelto Oral Thrush: Angular Cheilitis: -continue nystatin, magic mouth wash # Chemotherapy-induced anemia and thrombocytopenia - Plt 41, Hgb 10.1. - Monitor CBC daily - Transfuse if Hgb <7, plt <10 # Mild hyponatremia- resolved # Hypomagnesemia- resolved -Monitor and replace as needed # Hypoalbuminemia - albumin 3.4, likely due to cancer and acute illness Chronic medical conditions - T2DM: hold home meds (Januvia, Jardiance, metformin). Start weight-based insulin with 15u glargine and SSI. - HTN: Coreg - Chronic pain: reduced dose of home gabapentin given mild level of somnolence - COPD: home inhalers - Mood: resume home fluoxetine and PRN hydroxyzine - HLD: resume home statin - Obesity, class III (BMI 41) DVT Ppx: on AC xarelto Diet: Regular diet Code status: Full Code Medically Ready for Discharge: completion of antibiotics on Thursday Claudia Cali MD [facility] Medicine Please reach out using [employer] secure chat. * Progress Notes - Nicol Torres - 10/17/2024 2:04 PM EDT Case Management Adult Progress Note Teresa Rivera 63 y.o. female CSN: [id number] Admission: 10/12/2024 4:08 PM Primary Problem: Neutropenic fever (CMS/HCC) Anticipated Discharge Date: 10/18/24 Patient completing IV abx tomorrow and then anticipate discharge home. CLARA Delacruz * Progress Notes - Claudia Cali MD - 10/16/2024 10:40 AM EDT Subjective No acute events overnight. Patient seen by bedside. Labs, vitals, chart reviewed. Comfortably lying on bed. No new concerns. Discussed care and answered all their questions to satisfaction. Review of Systems Constitutional: Negative for fatigue and fever. HENT: Negative. Respiratory: Positive for cough. Cardiovascular: Negative. Gastrointestinal: Negative. Psychiatric/Behavioral: Negative. Objective Physical Exam Constitutional: Appearance: Normal appearance. HENT: Head: Normocephalic and atraumatic. Nose: Nose normal. Mouth/Throat: Comments: Scattered white patch on tongue Eyes: Extraocular Movements: Extraocular movements intact. Pupils: Pupils are equal, round, and reactive to light. Cardiovascular: Rate and Rhythm: Normal rate and regular rhythm. Pulmonary: Effort: Pulmonary effort is normal. Breath sounds: Normal breath sounds. Abdominal: General: Abdomen is flat. Palpations: Abdomen is soft. Musculoskeletal: General: Normal range of motion. Cervical back: Normal range of motion. No rigidity. Neurological: General: No focal deficit present. Mental Status: She is alert and oriented to person, place, and time. Psychiatric: Mood and Affect: Mood normal. Behavior: Behavior normal. Last Recorded Vitals Blood pressure 98/61, pulse 69, temperature 36.7 ??C (98.1 ??F), temperature source Oral, resp. rate 25, height 1.702 m (5' 7 ), weight 119 kg (262 lb), SpO2 93%. 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 female with PMH as per above who presents with sepsis with febrile severe neutropenia. NSGY was consulted and recommend LP, IR guided LP 10/14, negative for meningitis. CT Chest with new nodular opacity in Right lower lobe concerning for infection. On antibiotics for CAP. # Sepsis with febrile severe neutropenia # CAP --d/d bacterial pneumonia/Encephalitis(low suspicion)/Meningitis/bacteremia -WBC = 0.84, ANC = 30. Likely due to recent chemotherapy (Carboplatin/Etoposide/Atezolizumab every 21 days; last infusion 10/06). - T 101.6, HR 116, BP 107/68 on admission - CRP and procal elevated - nasopharyngeal PCR negative. CXR showed possible airspace disease and family reports cough. No urinary symptoms. -s/p 1 L fluid at ED -CTAP showed mild opacities within the left lung base which may represent atelectasis or mild aspiration/airspace disease. CXR showed right upper lobe airspace disease. -d/d bacterial pneumonia/Encephalitis(low suspicion)/bacteremia -CT chest Posterior right upper lobe scarring appears similar to comparison. New nodular opacities in the right lower lobe concerning for infection. Right medial right lower lobe pleural nodule measures 19 mm, previously 22 mm (series 4 image 271). No new suspicious nodule. No pleural effusion. -MRSA nares negative -blood cx NGTD, UA w/ reflex culture -CSF negative for meningitis Plan: Discontinue Amipicillin and Vancomycin as meningitis is ruled out Continue Cefepime to cover 5 days total for CAP, end date 10/18 Daily CBC/D H/O Small-cell lung cancer with mets to brain: on chemotherapy -[facility] -Regime: prev chemoRT (carbo/etop) completed September; following L frontal craniotomy 09/05 began C1 carbo/etop/atezolizumab 10/04 - 10/06 -had left frontal craniotomy on 09/05/24 for metastatic small-cell lung cancer. Completed Keppra andis currently on dexamethasone taper. -MRI head w/ and w/o ordered, no definite acute ischemic or hemorrhagic changes, post surgical changes PLAN: -NSGY consulted, appreciate recs, recommend LP, IR consulted, LP 10/14 negative viral panel PCR, cryptococcus Ag, negative organism - consult med onc, appreciate involvement, holding G-csf given HDS and on broad spectrum Abx -Rad onc is reached out(Dr. Martínez), plan to re sim as pt's insurance denied SFRT, schedule outpatient -resume PO dexamethasone 2mg q12h (was previously set to end on 10/16/24) -resume Keppra 500mg BID # Paroxysmal atrial fibrillation with RVR, history of atrial flutter s/p CTI ablation (11/2023) - had atrial flutter s/p ablation without recurrence. Then developed afib. No longer on antiarrhythmic but remains on Xarelto. - Has had intermittent RVR in ED. Initially hypotensive with RVR but now remains normotensive afterIV fluid resuscitation. Converts back to sinus rhythm frequently. - Suspect RVR is in setting of acute illness -Echo EF 60%, 10/25/23. PLAN: - DC Cardizem drip -Resume Carvidilol and Xarelto -DC telemetry Oral Thrush: Angular Cheilitis: -continue nystatin, magic mouth wash # Chemotherapy-induced anemia and thrombocytopenia - Plt 41, Hgb 10.1. - Monitor CBC daily - Transfuse if Hgb <7, plt <10 # Mild hyponatremia- resolved # Hypomagnesemia- resolved -Monitor and replace as needed # Hypoalbuminemia - albumin 3.4, likely due to cancer and acute illness Chronic medical conditions - T2DM: hold home meds (Januvia, Jardiance, metformin). Start weight-based insulin with 15u glargine and SSI. - HTN: holding Coreg, resume - Chronic pain: reduced dose of home gabapentin given mild level of somnolence - COPD: home inhalers - Mood: resume home fluoxetine and PRN hydroxyzine - HLD: resume home statin - Obesity, class III (BMI 41) DVT Ppx: on AC xarelto Diet: Regular diet Code status: Full Code Medically Ready for Discharge: completion of antibiotics on Thursday Claudia Cali MD Hospital Medicine Please reach out using [employer] secure chat. * Care Plan - Quan Chavez - 10/16/2024 8:34 AM EDT Problem: Adult Inpatient Plan of Care Goal: Plan of Care Review 10/16/2024833 by Quan Chavez Outcome: Ongoing, Progressing 10/16/2024833 by Quan Chavez Outcome: Ongoing, Progressing Flowsheets (Taken 10/16/2024833) Plan of Care Reviewed With: patient Goal: Patient-Specific Goal (Individualized) 10/16/2024833 by Quan Chavez Outcome: Ongoing, Progressing 10/16/2024833 by Quan Chavez Outcome: Ongoing, Progressing Goal: Absence of Hospital-Acquired Illness or Injury 10/16/2024833 by Quan Chavez Outcome: Ongoing, Progressing 10/16/2024833 by Quan Chavez Outcome: Ongoing, Progressing Goal: Optimal Comfort and Wellbeing 10/16/2024833 by Quan Chavez Outcome: Ongoing, Progressing 10/16/2024833 by Quan Chavez Outcome: Ongoing, Progressing Goal: Readiness for Transition of Care 10/16/2024833 by Quan Chavez Outcome: Ongoing, Progressing 10/16/2024833 by Quan Chavez Outcome: Ongoing, Progressing Problem: Fall Injury Risk Goal: Absence of Fall and Fall-Related Injury 10/16/2024833 by Quan Chavez Outcome: Ongoing, Progressing 10/16/2024833 by Quan Chavez Outcome: Ongoing, Progressing Intervention: Identify and Manage Contributors Flowsheets (Taken 10/16/2024833) Medication Review/Management: medications reviewed Self-Care Promotion: independence encouraged Intervention: Promote Injury-Free Environment Flowsheets (Taken 10/16/2024833) Safety Promotion/Fall Prevention: activity supervised assistive device/personal items within reach Problem: Pain Acute Goal: Optimal Pain Control and Function 10/16/2024833 by Quan Chavez Outcome: Ongoing, Progressing 10/16/2024833 by Quan Chavez Outcome: Ongoing, Progressing * Care Plan - Gladys Steele, RN - 10/16/2024 12:32 AM EDT Problem: Adult Inpatient Plan of Care Goal: Plan of Care Review Outcome: Ongoing, Progressing Problem: Fall Injury Risk Goal: Absence of Fall and Fall-Related Injury Outcome: Ongoing, Progressing Problem: Pain Acute Goal: Optimal Pain Control and Function Outcome: Ongoing, Progressing * Progress Notes - All Prabhakar MD - 10/15/2024 5:40 PM EDT Neurosurgery Consult Follow-up Note History, exam, and imaging review with attending and discussed on rounds this morning. Teresa Rivera is a 63 y.o. female presenting with history of atrial flutter status post ablation, hypertension, and small-cell lung cancer diagnosed 07/2023 with no cranial radiation ever, and brainmetastases status post left frontal craniotomy for metastasis resection on 09/05/2024 currently on chemotherapy as well as Xarelto (last dose 10/11 evening) presenting with a neutropenic fever. Exam: GCS (EMV): 465 Awake, alert, oriented Follows commands appropriately Speech clear PERRL, EOMI ESQUEDA symmetrically, no drift Strength 5/5 throughout Sensation intact - Following CSF from LP on 10/14 - Radiation Oncology consulted for possible treatment of residual tumor - Rest of care per primary team - Neurosurgery will continue to follow - Thank you for allowing us to participate in the care of this patient. Please call with any questions or concerns. [phone] All Prabhakar M.D. Resident Physician PGY-3 Department of Neurosurgery [facility] Cosigned by Amilcar Farnsworth MD at 10/16/2024 3:23 PM EDT Associated attestation - Amilcar Farnsworth MD - 10/16/2024 3:23 PM EDT Signature only. * Procedures - Barbie Hollingsworth RN - 10/15/2024 2:18 PM EDTAssociated Order(s): Insert peripheral IV Insert peripheral IV Performed by: Barbie Hollingsworth RN Authorized by: Claudia Cali MD Hand hygiene: Hand hygiene performed prior to insertion Inserted using aseptic techniques: Yes Preparation: Skin prepped with chg Orientation: Right Location: Forearm Catheter placed: Peripheral IV Catheter size: 20g/2.00in Line Technique: Ultrasound Guidance Number of attempts: 1 IV flushes: Without difficulty and positive blood return noted Patient tolerance: Patient tolerated the procedure well Patient comfort measures used: Position of comfort IV site covered with: Transparent semipermeable dressing * Query Clarification Note - Claudia Cali MD - 10/15/2024 12:26 PM EDT Physician Clarification Based on the clinical indicators below, please clarify which of the following accurately representsthe patient's renal status: []Acute kidney injury []JORGE on CKD []CKD, specify stage []Labs not clinically significant [x]Other (please specify) ____No Acute Kidney Injury or CKD Please further specify if the selected diagnosis: []Present on admission []Occurred after admission []Unable to determine present on admission status This documentation will become part of the patient's medical record. * Progress Notes - Claudia Cali MD - 10/15/2024 12:12 PM EDT Subjective No acute events overnight. Patient seen by bedside. Labs, vitals, chart reviewed. Comfortably lying on bed. Sister by bedside. Denies any complaints expect cough which is improving. Discussed care and answered all their questions to satisfaction. Review of Systems Constitutional: Negative for fatigue and fever. HENT: Negative. Respiratory: Positive for cough. Cardiovascular: Negative. Gastrointestinal: Negative. Psychiatric/Behavioral: Negative. Objective Physical Exam Constitutional: Appearance: Normal appearance. HENT: Head: Normocephalic and atraumatic. Nose: Nose normal. Mouth/Throat: Comments: Scattered white patch on tongue Eyes: Extraocular Movements: Extraocular movements intact. Pupils: Pupils are equal, round, and reactive to light. Cardiovascular: Rate and Rhythm: Normal rate and regular rhythm. Pulmonary: Effort: Pulmonary effort is normal. Breath sounds: Normal breath sounds. Abdominal: General: Abdomen is flat. Palpations: Abdomen is soft. Musculoskeletal: General: Normal range of motion. Cervical back: Normal range of motion. No rigidity. Neurological: General: No focal deficit present. Mental Status: She is alert and oriented to person, place, and time. Psychiatric: Mood and Affect: Mood normal. Behavior: Behavior normal. Last Recorded Vitals Blood pressure 111/70, pulse (!) 129, temperature 36.7 ??C (98 ??F), temperature source Oral, resp.rate 17, height 1.702 m (5' 7 ), weight 119 kg (262 lb), SpO2 96%. 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 female with PMH as per above who presents with sepsis with febrile severe neutropenia. NSGY was consulted and recommend LP, IR guided LP 10/14, negative for meningitis. CT Chest with new nodular opacity in Right lower lobe concerning for infection. On antibiotics for CAP. # Sepsis with febrile severe neutropenia # CAP --d/d bacterial pneumonia/Encephalitis(low suspicion)/Meningitis/bacteremia -WBC = 0.84, ANC = 30. Likely due to recent chemotherapy (Carboplatin/Etoposide/Atezolizumab every 21 days; last infusion 10/06). - T 101.6, HR 116, BP 107/68 on admission - CRP and procal elevated - nasopharyngeal PCR negative. CXR showed possible airspace disease and family reports cough. No urinary symptoms. -s/p 1 L fluid at ED -CTAP showed mild opacities within the left lung base which may represent atelectasis or mild aspiration/airspace disease. CXR showed right upper lobe airspace disease. -d/d bacterial pneumonia/Encephalitis(low suspicion)/bacteremia -CT chest Posterior right upper lobe scarring appears similar to comparison. New nodular opacities in the right lower lobe concerning for infection. Right medial right lower lobe pleural nodule measures 19 mm, previously 22 mm (series 4 image 271). No new suspicious nodule. No pleural effusion. -MRSA nares negative -blood cx NGTD, UA w/ reflex culture -CSF negative for meningitis Plan: Discontinue Amipicillin and Vancomycin as meningitis is ruled out Continue Cefepime to cover 5 days total for CAP H/O Small-cell lung cancer with mets to brain: on chemotherapy -Primary Oncologist: Dr. Satnam Stratton -Regime: prev chemoRT (carbo/etop) completed September; following L frontal craniotomy 09/05 began C1 carbo/etop/atezolizumab 10/04 - 10/06 -had left frontal craniotomy on 09/05/24 for metastatic small-cell lung cancer. Completed Kera andis currently on dexamethasone taper. -MRI head w/ and w/o ordered, no definite acute ischemic or hemorrhagic changes, post surgical changes PLAN: -NSGY consulted, appreciate recs, recommend LP, IR consulted, LP 10/14 negative viral panel PCR, cryptococcus Ag, negative organism - consult med onc, appreciate involvement, holding G-csf given HDS and on broad spectrum Abx -Rad onc is reached out(Dr. Martínez), plan to re sim as pt's insurance denied FSRT, schedule outpatient -resume PO dexamethasone 2mg q12h (was previously set to end on 10/16/24) -resume Keppra 500mg BID # Paroxysmal atrial fibrillation with RVR, history of atrial flutter s/p CTI ablation (11/2023) - had atrial flutter s/p ablation without recurrence. Then developed afib. No longer on antiarrhythmic but remains on Xarelto. - Has had intermittent RVR in ED. Initially hypotensive with RVR but now remains normotensive afterIV fluid resuscitation. Converts back to sinus rhythm frequently. - Suspect RVR is in setting of acute illness PLAN: - DC Cardizem drip -Resume Carvidilol and Xarelto Oral Thrush: Angular Cheilitis: -added nystatin, Magic mouth wash # Chemotherapy-induced anemia and thrombocytopenia - Plt 41, Hgb 10.1. - Monitor CBC daily - Transfuse if Hgb <7, plt <10 # Mild hyponatremia --Monitor now # Hypomagnesemia- resolved -Monitor and replace as needed # Hypoalbuminemia - albumin 3.4, likely due to cancer and acute illness Chronic medical conditions - T2DM: hold home meds (Januvia, Jardiance, metformin). Start weight-based insulin with 15u glargine and SSI. - HTN: holding Coreg, resume - Chronic pain: reduced dose of home gabapentin given mild level of somnolence - COPD: home inhalers - Mood: resume home fluoxetine and PRN hydroxyzine - HLD: resume home statin - Obesity, class III (BMI 41) DVT Ppx: on AC xarelto Diet: Regular diet Code status: Full Code Medically Ready for Discharge: completion of antibiotics on Thursday Claudia Cali MD Hospital Medicine Please reach out using [employer] secure chat. * Care Plan - Rupa Andrade - 10/14/2024 9:54 PM EDT Problem: Adult Inpatient Plan of Care Goal: Plan of Care Review Outcome: Ongoing, Progressing Goal: Patient-Specific Goal (Individualized) Outcome: Ongoing, Progressing Goal: Absence of Hospital-Acquired Illness or Injury Outcome: Ongoing, Progressing Goal: Optimal Comfort and Wellbeing Outcome: Ongoing, Progressing Goal: Readiness for Transition of Care Outcome: Ongoing, Progressing * Progress Notes - Mt Agnuiano, PharmD - 10/14/2024 4:30 PM EDT Pharmacokinetic Consult - Therapeutic Drug Monitoring HPI and Hospital Course: Teresa Rivera is a 63 y.o. female presenting with Sepsis and Febrile Neutropenia who continues on vancomycin for Neutropenic Fever. Pharmacy was consulted for management of vancomycin. Levels were obtained to assess safety and efficacy of current dosing regimen. Dose History: Recent Vancomycin Admin Vancomycin HCl in NaCl (Vancocin) IVPB 1,000 mg (mg) 1,000 mg Given 10/14/24 0629 1,000 mg Given 10/13/24 1820 1,000 mg Given 0534 vancomycin (Vancocin) 2,500 mg in sodium chloride 0.9 % 500 mL IVPB (mg) 2,500 mg Given 10/12/24 1848 Creatinine, Plasma (mg/dL) Date/Time Value 10/14/2024 0546 0.54 (L) 10/13/2024 0126 0.69 10/12/2024 1651 0.99 Estimated Creatinine Clearance: 125 mL/min (A) (by C-G formula based on SCr of 0.54 mg/dL (L)). Vancomycin Pharmacokinetic Evaluation: Current Dose: 1000 mg IV Q12 hr infused over 90 min Date/Time of Most Recent Dose: 10/14/24 0629 C1 random (ug/mL): 9.2 mcg/mL C2 trough (ug/mL): 6.6 mcg/mL Vancomycin ke (hr ^-1): 0.1033 Vancomycin half-life (hr): 6.7 Cmax, actual (ug/mL): 18.13 Ctrough, actual (ug/mL): 6.13 Vancomycin Vd (L): Vancomycin Vd (L/kg): Steady state Vd : 71.916 Steady state Vd : 0.605 Vancomycin AUC 24hr (mg??hr/L): 269 Recommended TDD: 3717 mg New Total Daily Dose (mg): 1750 mg IV q12h infused over 90 min New predicted vancomycin Peak: 31.73 New predicted vancomycin Trough: 10.73 New predicted vancomycin AUC: 470 Assessment and Recommendations: Vancomycin AUC resulted as subtherapeutic (269 mg*hr/L) 1. Levels drawn appropriately, with Peak level being drawn at 14:33 serving as random level (due topatient being in IR this AM) 2. Recommend adjusting current regimen to vancomycin 1750 mg IV every 12 hours. 3) Monitor renal function (SCr and BUN) and UOP at least 2-3x/week or more frequently if renal function changes. 4) Obtain repeat vancomycin levels (trough & peak to calculate AUC) around the 4th dose of new regimen or sooner if renal function changes. Pharmacy will continue to follow, Submitted by: Mt Anguiano PharmD 10/14/2024 4:28 PM * Progress Notes - Hyacinth Perkins MD - 10/14/2024 2:53 PM EDT Subjective The patient seen and assessed at bedside, states that she had a fever at home, denied any headache,blurry vision C/o nausea and abdominal pian, chronic Review of Systems Constitutional: Positive for fatigue and fever. HENT: Negative. Respiratory: Negative. Cardiovascular: Negative. Gastrointestinal: Negative. Psychiatric/Behavioral: Negative. Objective Physical Exam Constitutional: Appearance: Normal appearance. HENT: Head: Normocephalic and atraumatic. Nose: Nose normal. Mouth/Throat: Comments: Scattered white patch on tongue Eyes: Extraocular Movements: Extraocular movements intact. Pupils: Pupils are equal, round, and reactive to light. Cardiovascular: Rate and Rhythm: Normal rate and regular rhythm. Pulmonary: Effort: Pulmonary effort is normal. Breath sounds: Normal breath sounds. Abdominal: General: Abdomen is flat. Palpations: Abdomen is soft. Musculoskeletal: General: Normal range of motion. Cervical back: Normal range of motion. No rigidity. Neurological: General: No focal deficit present. Mental Status: She is alert and oriented to person, place, and time. Psychiatric: Mood and Affect: Mood normal. Behavior: Behavior normal. Last Recorded Vitals Blood pressure 109/69, pulse (!) 161, temperature 36.4 ??C (97.6 ??F), temperature source Oral, resp. rate 21, height 1.702 m (5' 7 ), weight 119 kg (262 lb), SpO2 98%. 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 female with PMH as per above who presents with sepsis with febrile severe neutropenia. NSGY was consulted and recommend LP, IR guided LP today # Sepsis with febrile severe neutropenia --d/d bacterial pneumonia/Encephalitis(low suspicion)/Meningitis/bacteremia -WBC = 0.84, ANC = 30. Likely due to recent chemotherapy (Carboplatin/Etoposide/Atezolizumab every 21 days; last infusion 10/06). - T 101.6, HR 116, BP 107/68 on admission - CRP and procal elevated - nasopharyngeal PCR negative. CXR showed possible airspace disease and family reports cough. No urinary symptoms. -s/p 1 L fluid at ED -CTAP showed mild opacities within the left lung base which may represent atelectasis or mild aspiration/airspace disease. CXR showed right upper lobe airspace disease. -d/d bacterial pneumonia/Encephalitis(low suspicion)/bacteremia -CT chest ordered right lower lobe nodular airspace disease concerning infection, personally reviewed, does not look pneumonia -MRSA nares negative -blood cx NGTD, UA w/ reflex culture Plan: continue vancomycin, cefepime, and ampicillin for empiric coverage of meningitis/central [facility] infection and bacterial pneumonia, deescalate to treat as neutropenic fever with cefepime if all cultures negative -CT chest scan personally reviewed, does not look pneumonia H/O Small-cell lung cancer with mets to brain: on chemotherapy -Primary Oncologist: Dr. Satnam Stratton -Regime: prev chemoRT (carbo/etop) completed September; following L frontal craniotomy 09/05 began C1 carbo/etop/atezolizumab 10/04 - 10/06 -had left frontal craniotomy on 09/05/24 for metastatic small-cell lung cancer. Completed Keppra andis currently on dexamethasone taper. -MRI head w/ and w/o ordered, no definite acute ischemic or hemorrhagic changes, post surgical changes PLAN: -NSGY consulted, appreciate recs, recommend LP, IR consulted, today performed, negative viral panel, cryptococcus Ag, - consult med onc, appreciate involvement, holding G-csf given HDS and on broad spectrum Abx -Rad onc is reached out(Dr. Martínez), plan to re sim as pt's insurance denied FSRT, schedule outpatient -resume PO dexamethasone 2mg q12h (was previously set to end on 10/16/24) - resume Keppra 500mg BID # paroxysmal atrial fibrillation with RVR, history of atrial flutter s/p CTI ablation (11/2023) - had atrial flutter s/p ablation without recurrence. Then developed afib. No longer on antiarrhythmic but remains on Xarelto. - Has had intermittent RVR in ED. Initially hypotensive with RVR but now remains normotensive afterIV fluid resuscitation. Converts back to sinus rhythm frequently. - Suspect RVR is in setting of acute illness PLAN: - holding AC due to LP. On Xarelto at home(last dose 10/11). Ordered anti-Xa level. Resume tomorrow - Resume home carvedilol which was on hold ISO recent hypotension and concern for sepsis Oral Thrush: Angular Cheilitis: -added nystatin, Magic mouth wash # chemotherapy-induced anemia and thrombocytopenia - Plt 41, Hgb 10.1. - Monitor CBC daily - Transfuse if Hgb <7, plt <10 # Mild hyponatremia --Monitor now # hypomagnesemia -Monitor and replace as needed # hypoalbuminemia - albumin 3.4, likely due to cancer and acute illness Chronic medical conditions - T2DM: hold home meds (Januvia, Jardiance, metformin). Start weight-based insulin with 15u glargine and SSI. - HTN: holding Coreg, resume Today - Chronic pain: reduced dose of home gabapentin given mild level of somnolence - COPD: home inhalers - Mood: resume home fluoxetine and PRN hydroxyzine - HLD: resume home statin - Obesity, class III (BMI 41) DVT Ppx: SCDs, holding post LP Diet: Regular diet Code status: Full Code Medically Ready for Discharge:Anticipated in 2-4 Days * Progress Notes - Radha Jang RN - 10/14/2024 2:30 PM EDT Case Management Adult Initial Progress Note Teresa Rivera 63 y.o. female CSN: [id number] Admission: 10/12/2024 4:08 PM Primary Problem: Neutropenic fever (CMS/HCC) Fiber Optics Technician reviewed chart and spoke with patient to complete this Initial Case Management Assessment. PCP: Laurie Gutierrez MD Emergency Contact: Extended Emergency Contact Information Primary Emergency Contact: Zachary Rivera Mobile Relation: Son Preferred language: Chinese Dehairer needed? No Secondary Emergency Contact: NicoleAurora Mobile Relation: Daughter Preferred language: Chinese Dehairer needed? No Insurance: Primary Visit Coverage Payer Plan Sponsor Code Group Number Group Name [facility] [employer] [facility] [employer] [id number] Primary Visit Coverage Subscriber Subscriber ID Subscriber Name Subscriber SSN Subscriber Address [id number] TERESA RIVERA [id number] [place] [id number] Patient information: admit to with history of atrial flutter status post ablation, hypertension,and small-cell lung cancer diagnosed 07/2023 with no cranial radiation ever, and brain metastases status post left frontal craniotomy for metastasis resection on 09/05/2024 currently on chemotherapy as well as Xarelto (last dose 10/11 evening) presenting with a neutropenic fever. Confirmed home address and insurance information. Reports she lives alone and has home assistance and transport. 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 Copy requested for chart. Additional Comments:. Per team, not medically ready for discharge. Radha Jang RN * Progress Notes - All Prabhakar MD - 10/14/2024 11:33 AM EDT Neurosurgery Consult Follow-up Note History, exam, and imaging review with attending and discussed on rounds this morning. Teresa Rivera is a 63 y.o. female presenting with history of atrial flutter status post ablation, hypertension, and small-cell lung cancer diagnosed 07/2023 with no cranial radiation ever, and brainmetastases status post left frontal craniotomy for metastasis resection on 09/05/2024 currently on chemotherapy as well as Xarelto (last dose 10/11 evening) presenting with a neutropenic fever. Exam: GCS (EMV): 465 Awake, alert, oriented Follows commands appropriately Speech clear PERRL, EOMI ESQUEDA symmetrically, no drift Strength 5/5 throughout Sensation intact - Will obtain LP in IR today - Radiation Oncology consulted for possible treatment of residual tumor - Rest of care per primary team - Neurosurgery will continue to follow - Thank you for allowing us to participate in the care of this patient. Please call with any questions or concerns. [phone] All Prabhakar M.D. Resident Physician PGY-3 Department of Neurosurgery [facility] Cosigned by Abhilash Bangura MD at 10/17/2024 8:32 AM EDT Associated attestation - Abhilash Bangura MD - 10/17/2024 8:32 AM EDT I saw and evaluated the patient with the resident/fellow. I discussed the case with the resident/fellow and agree with the findings and plan as documented. * Procedures - Dayana River RN - 10/14/2024 10:55 AM EDTAssociated Order(s): Insert peripheral IV Insert peripheral IV Performed by: Dayana River RN Authorized by: Hyacinth Perkins MD Hand hygiene: Hand hygiene performed prior to insertion Inserted using aseptic techniques: Yes Preparation: Skin prepped with chg Orientation: Right Location: Forearm Catheter placed: Peripheral IV Catheter size: 20g/2.00in Line Technique: Ultrasound Guidance Number of attempts: 1 IV flushes: Without difficulty and positive blood return noted and IV luer locked Patient tolerance: Patient tolerated the procedure well, age appropriate response and there were nocomplications IV site covered with: Transparent semipermeable dressing Education provided to: Patient * Post-Procedure Note - Lisa Romano PA - 10/14/2024 10:35 AM EDT Vascular and Interventional Radiology Brief Postprocedure Note Attending: Rosalina Supervisor Wood Crew: Rosario Pre-operative Diagnosis: neutropenic fever, headache, residual brain mass Post-operative Diagnosis: same Type of Anesthesia: Local Description of Findings: Clear CSF OP 21 CP 14 Technical/Surgical Procedures Used: Image-guided L3-4 LUMBAR PUNCTURE 16 ml CSF removed 15 cm spinal needle Specimen Obtained: Yes, csf Complications: None Estimated Blood Loss: none Procedure Events Event Event Time See detailed result report with images in PACS. The patient tolerated the procedure well without incident or complication and is in stable condition. * Consults - Lisa Romano PA - 10/14/2024 8:32 AM EDTAssociated Order(s): Inpatient Consult to Spine Neuro Interventional Radiology Inpatient Consult to Spine Neuro Interventional Radiology Consult performed by: Lisa Romano PA Consult ordered by: Hyacinth Perkins MD Reason For Consult Sepsis, brain mets, neutropenic fever Requesting Service: General Medicine Requested Date/Time: 10/13/24 History Of Present Illness Teresa Rivera is a 63 y.o. female with history of atrial flutter status post ablation-on xarelto, hypertension, and small-cell lung cancer diagnosed 07/2023, and brain metastases status post left frontal craniotomy for metastasis resection on 09/05/2024, on chemotherapy, presenting with a headache, dizziness. She has sepsis with neutropenic fever. She was noted to have evolving areas of hemorrhage within the surgical cavity and residual tumor along the medial margin of the surgical cavity and adjacent to the falx. Headache has improved since hospitalization. She has chemotherapy induced thrombocytopenia and is morbidly obese with BMI of 41. MICHAEL was consulted for an image-guided lumbar puncture. Xarelto has been held >48 hours. Past Medical History She has a past medical history of Brain tumor (CMS/HCC), Personal history of other diseases of the circulatory system, Personal history of other diseases of the musculoskeletal system and connective tissue, and Personal history of other endocrine, nutritional and metabolic disease. She has no past medical history of Malignant hyperthermia, PONV (postoperative nausea and vomiting), or Pseudocholinesterase deficiency. Surgical History She has a past surgical history that includes Tubal ligation (N/A); Tympanostomy tube placement (N/A); and Brain surgery. Family History Family History[1] 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 She reports that she quit smoking about a year ago. Her smoking use included cigarettes. She started smoking about 49 years ago. She has a 72.6 pack-year smoking history. She has never used smokelesstobacco. She reports that she does not drink alcohol and does not use drugs. Allergies Cephalexin, Lisinopril, and Meloxicam Medications Current Medications[2] Review of Systems Review of Systems Constitutional: Positive for fever. Neurological: Negative for headaches. Physical Exam Physical Exam Constitutional: Appearance: She is obese. HENT: Head: Normocephalic and atraumatic. Cardiovascular: Rate and Rhythm: Normal rate. Rhythm irregular. Comments: Intermittent tachycardia with irregularity Pulmonary: Effort: Pulmonary effort is normal. No respiratory distress. Abdominal: Comments: Truncal obesity Skin: General: Skin is warm and dry. Neurological: Mental Status: She is alert and oriented to person, place, and time. Psychiatric: Mood and Affect: Mood normal. Behavior: Behavior normal. Thought Content: Thought content normal. Last Recorded Vitals Blood pressure 129/82, pulse 80, temperature 36.4 ??C (97.6 ??F), temperature source Oral, resp. rate 21, height 1.702 m (5' 7 ), weight 119 kg (262 lb), SpO2 96%. Relevant Results Lab Results Component Value Date WBC 0.40 (LL) 10/14/2024 HGB 9.2 (L) 10/14/2024 HCT 27.6 (L) 10/14/2024 MCV 93 10/14/2024 PLT 47 (L) 10/14/2024 Lab Results Component Value Date INR 1.1 09/05/2024 INR 1.3 (H) 08/31/2024 === 10/12/24 === MR HEAD W AND WO IV CONTRAST - Narrative - CLINICAL INDICATION: Mental status change, unknown cause TECHNIQUE: Multiplanar multiecho sequences were performed through the brain utilizing T1 and T2 weighting, as well as either axial susceptibility weighted or gradient echo sequences, and axial diffusion weighted images. Imaging was performed with and without contrast administration: 11.9 mL of Gadavist. COMPARISON: CT head dated October 04, 2024 MR head dated September 05, 2024 MR head dated September 01, 2024 FINDINGS: Diagnostic Quality: Adequate. Status post left posterior frontal lobe craniotomy with overall decrease amount of hemorrhagic changes, with evolution of signal intensity, more conspicuous on T1-weighted images with more clear hyperintensity on today's examination, but with overall decrease in extension. Prominent susceptibility artifact is also demonstrated in the region. A small amount of parenchymal hemorrhage in the subjacent left centrum semiovale is also mildly decreased with decrease amount of peripheral hyperintense FLAIR signal. Interval near resolve of previously noted left convexity small hematoma. Residual tumor along the deep medial margin with interval loss of enhancement (series 16 image 122), that was appreciated on prior MRI dated September 05, 2024. There is persistent mild amount of dural enhancement surrounding the surgical bed. No new areas of restricted diffusion to suggest acute infarction. There is a small focal area of hyperintense T2 signal in the left thalamus, with no representation on other sequences, slightly more conspicuous as compared with prior. Vascular Flow Voids: Unremarkable. Paranasal Sinuses and Mastoid Air Cells: Dominant right maxillary sinus. Minimal right maxillary sinus mucosal thickening. Mastoid air cells are clear. Orbits: No definite masses within the limitations of the study. Extracranial Findings: The posterior frontal lobe craniotomy with scalp alejandro. Craniocervical Junction and Skull Base: No tonsillar ectopia or mass is present. - Impression - 1. No definite acute ischemic or hemorrhagic changes. 2. Evolving areas of hemorrhage within the surgical cavity in the left posterior frontal convexity with also interval evolution of hemorrhagic component within the centrum semiovale with no definite worsening areas of hemorrhage or mass effect. Decreased amount of vasogenic edema surrounding the surgical cavity and the parenchymal hemorrhagic component. 3. Redemonstration of residual tumor along the medial margin of the surgical cavity and adjacent tothe falx with slightly decreased amount of enhancement. Apparent decrease amount of filling defect within the adjacent superior sagittal sinus, somewhat difficult to evaluate due to motion. No definite new or worsening areas of masslike enhancement or mass effect. 4. Almost complete resolution of left convexity subdural hemorrhage. Slightly more conspicuous small area of hyperintense T2 signal in the left thalamus, nonspecific, could represent evolving toxic/metabolic insults or posttreatment changes. CRITICAL RESULT: No. COMMUNICATION: Per this written report. By electronically signing this report, I, the attending physician, attest that I have personally reviewed the images/data for the above examination(s) and agree with the final edited report. 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CMS/HCC) Sepsis without acute organ dysfunction (CMS/HCC) Subdural hematoma (CMS/HCC) Subarachnoid hemorrhage (CMS/HCC) Procedure and risks were discussed Consent obtained Proceed with image-guided LUMBAR PUNCTURE [1] Family History Problem Relation Name Age of Onset No Known Problems Mother No Known Problems Father Diabetes Other Fibromyalgia Other [2] Current Facility-Administered Medications Medication Dose Route Frequency Provider Last Rate Last Admin ampicillin (Omnipen) 2 g in sodium chloride 0.9% 100 mL IVPB (vial adapter required) 2 g Intravenous q4h John Nieves MD 220 mL/hr at 10/14/24 0627 2 g at 10/14/24 0627 atorvastatin (Lipitor) tablet 40 mg 40 mg Oral Daily John Nieves MD 40 mg at 10/13/24 0821 benzonatate (Tessalon) capsule 100 mg 100 mg Oral TID PRN Vesna Barcenas MD 100 mg at 10/13/247 calcium carbonate (Tums) chewable tablet 500 mg 500 mg Oral 4x daily PRN Vesna Barcenas MD 500 mg at 10/13/24 0541 cefepime (Maxipime) 2 g in sodium chloride 0.9% 100 mL IVPB (vial adapter required) 2 g [id number] John Nieves MD 36.7 mL/hr at 10/14/24 0330 2 g at 10/14/24 0330 dexamethasone (Decadron) tablet 2 mg 2 mg Oral q12h John Nieves MD 2 mg at 10/14/24 0007 glucose (Glutose) 40 % oral gel 15-30 grams of glucose 15-30 grams of glucose Sublingual q15 min PRN John Nieves MD Or dextrose 50 % solution 12.5-25 g 12.5-25 g Intravenous q15 min PRN John Nieves MD Or glucagon (human recombinant) injection 1 mg 1 mg Intramuscular q15 min PRN John Nieves MD dextrose 50 % solution 50 mL 50 mL Intravenous PRN Joya Krishna PA 50 mL at 10/12/24 2100 FLUoxetine (PROzac) capsule 40 mg 40 mg Oral Daily John Nieves MD 40 mg at 10/13/24 0822 gabapentin (Neurontin) capsule 300 mg 300 mg Oral TID John Nieves MD 300 mg at 05/29/25 2154 hydrOXYzine HCl (Atarax) tablet 25 mg 25 mg Oral q12h PRN John Nieves MD insulin glargine-yfgn 100 UNIT/ML injection 15 Units 15 Units Subcutaneous Nightly John Nieves MD 15 Units at 10/13/242156 insulin lispro (Admelog) 100 units/mL injection - Correction - Standard Dose 0-5 Units SubcutaneousTID with meals John Nieves MD 3 Units at 10/13/241801 insulin lispro (Admelog) injection - Correction - Nighttime Dose 0-3 Units Subcutaneous Twice at night John Nieves MD levETIRAcetam (Keppra) tablet 500 mg 500 mg Oral BID John Nieves MD 500 mg at 10/13/242153 lidocaine-EPINEPHrine (Xylocaine W/EPI) 1 %-1:125111 injection 20 mL 20 mL Infiltration Once Domingo Waldrop MD qhoepdbet-cbtqhewwrdi-magrlmuyfz (L.E.T.) topical gel 1 Application 1 Application Topical Once Domingo Rawls MD magic mouthwash BLM (FIRST-Mouthwash) suspension 15 mL 15 mL Swish & Spit Before meals & nightly Hyacinth Perkins MD 15 mL at 10/13/242155 magnesium oxide (Mag-Ox) tablet 400 mg 400 mg Oral BID John Nieves MD 400 mg at 10/13/242153 melatonin tablet 3 mg 3 mg Oral Nightly PRN John Nieves MD metoprolol tartrate (Lopressor) injection 5 mg 5 mg Intravenous q5 min PRN Vesna Barcenas MD 5 mg at 10/13/242119 Tiotropium Amoret Monohydrate (Spiriva Respimat) 2.5 MCG/ACT inhaler 2 puff 2 puff Inhalation Daily John Nieves MD 2 puff at 10/13/24 0821 And mometasone-formoterol (Dulera 200) 200-5 MCG/ACT inhaler 2 puff 2 puff Inhalation BID Clara Nieves MD 2 puff at 10/13/24 0909 montelukast (Singulair) tablet 10 mg 10 mg Oral Nightly John Nieves MD 10 mg at 10/13/242152 nystatin (Mycostatin) 296899 UNIT/ML suspension 500,000 Units 5 mL Swish & Swallow 4x daily Hyacinth Perkins MD 500,000 Units at 10/13/242153 ondansetron ODT (Zofran-ODT) disintegrating tablet 4 mg 4 mg Oral q6h PRN John Nieves MD Or ondansetron (Zofran) injection 4 mg 4 mg Intravenous q6h PRN John Nieves MD Or ondansetron (Zofran) 4 MG/5ML solution 4 mg 4 mg Oral q6h PRN John Nieves MD pantoprazole (Protonix) EC tablet 40 mg 40 mg Oral Daily John Nieves MD 40 mg at 10/13/24 08 polyethylene glycol (Miralax) packet 17 g 17 g Oral Daily John Nieves MD 17 g at 10/13/24 0821 senna (Senokot) tablet 17.2 mg 2 tablet Oral Nightly John Nieves MD 17.2 mg at 10/13/242152 sodium chloride 0.9 % flush 10 mL 10 mL Intravenous q12h John Nieves MD 10 mL at 10/13/242158 And sodium chloride 0.9 % flush 10 mL 10 mL Intravenous PRN John Nieves MD Vancomycin HCl in NaCl (Vancocin) IVPB 1,000 mg 1,000 mg Intravenous q12h John Nieves MD 1,000mg at 10/14/24 0629 * Care Plan - Tim Oneal - 10/14/2024 4:08 AM EDT Problem: Adult Inpatient Plan of Care Goal: Plan of Care Review Outcome: Ongoing, Progressing Goal: Patient-Specific Goal (Individualized) Outcome: Ongoing, Progressing Goal: Absence of Hospital-Acquired Illness or Injury Outcome: Ongoing, Progressing Goal: Optimal Comfort and Wellbeing Outcome: Ongoing, Progressing Goal: Readiness for Transition of Care Outcome: Ongoing, Progressing * Nursing Note - Zhane Freeman - 10/13/2024 3:55 PM EDT Transport arrived to transport pt to . Attempted to call report. Per Belle, on the receiving nurse will call me back. Informed that pt is en route to unit. Pt has had no status changes since previous assessment. * Progress Notes - Hyacinth Perkins MD - 10/13/2024 2:08 PM EDT Subjective The patient seen and assessed at bedside, states that she had a fever at home, denied any headache,blurry vision C/o nausea and abdominal pian, chronic Review of Systems Constitutional: Positive for fatigue and fever. HENT: Negative. Respiratory: Negative. Cardiovascular: Negative. Gastrointestinal: Negative. Psychiatric/Behavioral: Negative. Objective Physical Exam Constitutional: Appearance: Normal appearance. HENT: Head: Normocephalic and atraumatic. Nose: Nose normal. Mouth/Throat: Comments: Scattered white patch on tongue Eyes: Extraocular Movements: Extraocular movements intact. Pupils: Pupils are equal, round, and reactive to light. Cardiovascular: Rate and Rhythm: Normal rate and regular rhythm. Pulmonary: Effort: Pulmonary effort is normal. Breath sounds: Normal breath sounds. Abdominal: General: Abdomen is flat. Palpations: Abdomen is soft. Musculoskeletal: General: Normal range of motion. Cervical back: Normal range of motion. No rigidity. Neurological: General: No focal deficit present. Mental Status: She is alert and oriented to person, place, and time. Psychiatric: Mood and Affect: Mood normal. Behavior: Behavior normal. Last Recorded Vitals Blood pressure 109/70, pulse 97, temperature 36.9 ??C (98.5 ??F), resp. rate 18, height 1.702 m (5'7 ), weight 119 kg (262 lb), SpO2 95%. 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 female with PMH as per above who presents with sepsis with febrile severe neutropenia. NSGY was consulted and recommend LP, IR guided LP tomorrow. # sepsis with febrile severe neutropenia --d/d bacterial pneumonia/Encephalitis(low suspicion)/Meningitis/bacteremia -WBC = 0.84, ANC = 30. Likely due to recent chemotherapy (Carboplatin/Etoposide/Atezolizumab every 21 days; last infusion 10/06). - T 101.6, HR 116, BP 107/68 on admission - CRP and procal elevated - nasopharyngeal PCR negative. CXR showed possible airspace disease and family reports cough. No urinary symptoms. Family reports headache and worsening R sided weakness for 3 days (CTH findings discussed below) but no meningeal signs on exam. No rash or concern for cellulitis. No GI symptoms. -s/p 1 L fluid at ED -CTAP showed mild opacities within the left lung base which may represent atelectasis or mild aspiration/airspace disease. CXR showed right upper lobe airspace disease. -d/d bacterial pneumonia/Encephalitis(low suspicion)/bacteremia -CT chest ordered Plan: continue vancomycin, cefepime, and ampicillin for empiric coverage of meningitis/central [facility] infection and bacterial pneumonia -blood cx, UA w/ reflex culture -- MRSA nares ordered - currently on vanc for possible meningitis as above. If meningitis ruled outand MRSA nares negative, can d/c MRSA coverage from a PNA treatment perspective H/O Small-cell lung cancer with mets to brain: on chemotherapy -Primary Oncologist: Dr. Satnam Stratton -Regime: prev chemoRT (carbo/etop) completed September; following L frontal craniotomy 09/05 began C1 carbo/etop/atezolizumab 10/04 - 10/06 -had left frontal craniotomy on 09/05/24 for metastatic small-cell lung cancer. Completed Keppra andis currently on dexamethasone taper. -MRI head w/ and w/o ordered, no definite acute ischemic or hemorrhagic changes, post surgical changes PLAN: -NSGY consulted, appreciate recs, recommend LP, IR consulted, possibly tomorrow - consult med onc, appreciate involvement, holding G-csf given HDS and on broad spectrum Abx -Rad onc is reached out(Dr. Martínez), plan to re sim as pt's insurance denied FSRT, schedule outpatient -- resume PO dexamethasone 2mg q12h (was previously set to end on 10/16/24) - resume Keppra 500mg BID # paroxysmal atrial fibrillation with RVR, history of atrial flutter s/p CTI ablation (11/2023) - had atrial flutter s/p ablation without recurrence. Then developed afib. No longer on antiarrhythmic but remains on Xarelto. - Has had intermittent RVR in ED. Initially hypotensive with RVR but now remains normotensive afterIV fluid resuscitation. Converts back to sinus rhythm frequently. - Suspect RVR is in setting of acute illness PLAN: - holding AC for possible LP. On Xarelto at home(last dose 10/11). Ordered anti- Xa level. - ordered additional 2g IV mag. Goal K >4, Mg >2. - hold home carvedilol ISO recent hypotension and concern for sepsis Oral Thrush: Angular Cheilitis: -added nystatin, Magic mouth wash # chemotherapy-induced anemia and thrombocytopenia - Plt 41, Hgb 10.1. - Monitor CBC daily - Transfuse if Hgb <7, plt <10 # Mild hyponatremia --Monitor now # hypomagnesemia -Monitor and replace as needed # hypoalbuminemia - albumin 3.4, likely due to cancer and acute illness Chronic medical conditions - T2DM: hold home meds (Januvia, Jardiance, metformin). Start weight-based insulin with 15u glargine and SSI. - HTN: holding Coreg - Chronic pain: reduced dose of home gabapentin given mild level of somnolence - COPD: home inhalers - Mood: resume home fluoxetine and PRN hydroxyzine - HLD: resume home statin - Obesity, class III (BMI 41) Fluids: PO and Bolus PRN DVT Ppx: SCDs, holding pending possible LP Diet: Regular diet Code status: Full Code Medically Ready for Discharge:Anticipated in 2-4 Days * Consults - Aurora Zapata PA - 10/13/2024 12:55 PM EDTAssociated Order(s): IP CONSULT TO ONCOLOGY Medical Oncology Consult Note Date: 10/13/24 Primary Service: Patient Care Team: Laurie Gutierrez MD as PCP - General Joshua Martínez MD as Consulting Physician (Radiation Oncology) History of Present Illness Teresa Rivera is a 63 y.o. 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 Of note, her CT CAP at that time showed no recurrent chest/visceral involvement. Now p/w fever (Tmax 101.6), headache, dizziness, weakness, and abdominal pain. Very somnolent on admission. Marked neutropenia w ANC 0.03, and thrombocytopenia w plts 41K. CXR w c/f RUL airspace opacities. CT head w residual hyperdensity w surrounding subarachnoid hemorrhage and c/f subdural hemorrhage. NSGY consulted; no acute NSGY intervention, defer LP currently since on Xarelto (a fib) but doplan for tmw (10/14). CT AP neg. Begun on empiric vanc, cefepime, and Unasyn in the ED, Bcx obtained. MR brain earlier today showed no definite acute ischemic or hemorrhagic changes, or worsening masslike enhancement or mass effect. Today pt is seen, sitting UIB, a son on speaker (pt's cellphone). She is alert/oriented and cognizant of circumstances. She is HDS on RA, and currently denies ONEAL, NV, SOA, cough or CP, focal neuro complaint, or sig pain, new complaint other than rash of the lips and altered taste w mild sore throat. She is aware NSGY plans LP, and asks about start of adjuvant brain RT; discussed below. Oncology History Oncology History Extensive stage primary small cell carcinoma of lung 09/09/2024 Initial Diagnosis Extensive stage primary small cell carcinoma of lung 10/04/2024 - Chemotherapy Ozkdnjestrvt-Zhgeeqisrgwwn-ojtm (Tecentriq Hybreza) [id number] MG-UT/15ML injection solution 1,875 mg, 1,875 mg, Subcutaneous, Once, 1 of 4 cycles Administration: 1,875 mg (10/04/2024) CARBOplatin (Paraplatin) 650 mg in sodium chloride 0.9 % 250 mL IVPB, 650 mg, Intravenous, Once, 1 of 4 cycles Administration: 650 mg (10/04/2024) etoposide (Toposar) 220 mg in sodium chloride 0.9 % 500 mL IVPB, 100 mg/m2 = 220 mg, Intravenous, Once, 1 of 4 cycles Administration: 220 mg (10/04/2024), 220 mg (10/05/2024), 220 mg (10/06/2024) aprepitant (Cinvanti) 130 MG/18ML IV 130 mg, 130 mg, Intravenous, Once, 1 of 4 cycles Administration: 130 mg (10/04/2024) 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CMS/HCC) 09/09/2024 Initial Diagnosis 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CMS/HCC) 09/26/2024 - Radiation Therapy The patient saw Joshua Martínez MD for radiation treatment. This is the current list of radiation treatment: No treatments are associated with the selected episodes (SBRT: Midline Brain). Review of Systems: Targeted review of systems performed and negative except as noted in HPI. Past Medical History Medical History[1] Past Surgical History Surgical History[2] Family History Family History[3] 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 Patient lives in [place], [place] Tobacco Use History[4] 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 Substance and Sexual Activity Alcohol Use No 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 Substance and Sexual Activity Drug Use Never Allergies Allergies[5] Medications Current medications reviewed Physical Exam Visit Vitals BP 115/77 Pulse 99 Temp 36.9 ??C (98.5 ??F) SpO2 92% ECO General: Lying/resting comfortably in bed, NAD but overweight, disheveled, fatigued appearing HEENT: NCAT, PERRLA/EOMI, anicteric; angular cheilitis and oral thrush w posterior mucositis Neck: Supple, no lymphadenopathy or JVD Heart: RRR, no MGR Lungs: CTAB; no rales, rhonchi or wheezes Abdomen: Soft, protuberant, NTND, + BS Extremities: No edema, distal pulses intact Musculoskeletal: No focal tenderness or deformity Skin: No visible rashes or lesions Neuro: Grossly nonfocal; no localizing deficits of strength, sensation, or mentation Psychiatric: Normal mood and thought content Labs Labs in last 18 hours CBC WBC 0.53 (LL) Hb 10.1 (L) Plt 41 (L) Hct 31.3 (L) ANC 0.03 (LL) INR ??, PTT ??, Anti-Xa 1.20 BMP Na 135 (L) Cl 99 BUN 21 Glu 90 K 3.4 (L) Co2 27 Cr 0.69 Ca 8.3 (L) iCa ?? Mg 2.2, Phos 3.8 Lactate ?? LFT AST 17 AlkPhos 63 T Prot 5.5 (L) ALK 25 Bili 0.6 Alb ?? D.Bili ?? Lab Results Component Value Date TSH 0.90 10/04/2024 Imaging: As per HPI if relevant Assessment and Plan Teresa Rivera is a 63 y.o. female who is admitted with neutropenic fever after starting chemo/immunotherapy, in context of recently resected brain metastasis of ES-SCLC. Medical oncology consulted for assistance with Oncology PLAN OF CARE. #ES-SCLC #Brain metastasis - Primary Oncologist: Dr. Satnam Stratton - Regime: prev chemoRT (carbo/etop) completed September; following L frontal craniotomy 09/05 began F0evbuq/etop/atezolizumab 10/04 - 10/06 - CT chest 09/[address] AP 10/12 w no evident recurrent visceral involvement - Further care as below; can assist w rescheduling outpt fu as indicated, pending dispo #Febrile neutropenia w sepsis #Gr3 thrombocytopenia #Chemotherapy related #Concern for risk of meningeal/[facility] infection in context of recent crani - SP L frontal craniotomy for gross resection 09/05, uncomplicated - Now p/w fever (Tmax 101.6), headache, dizziness, weakness, and abdominal pain. Very somnolent on admission - Marked neutropenia w ANC 0.03, and thrombocytopenia w plts 41K - CXR w c/f RUL airspace opacities, CT chest pending, CT AP neg - CT head w residual hyperdensity w surrounding subarachnoid hemorrhage and c/f subdural hemorrhage - NSGY consulted; no acute NSGY intervention, defer LP on admission since on Xarelto (a fib) but doplan for tmw (10/14) - Begun on empiric vanc, cefepime, and Unasyn in the ED, Bcx obtained - MR brain earlier today showed no definite acute ischemic or hemorrhagic changes, or worsening masslike enhancement or mass effect #Angular cheilitis #Oral Thrush #Gr2 mucositis, chemo-related - Recc Aquaphor or barrier cream to lips, nystatin rinse and/or fluconazole, baking soda/salt rinses - Expect improvement as ANC recoups PLAN 10/13/24: - Cont empiric BSAbx, ongoing infectious w/u (no port cx were obtained however) - Oral care recc's as above - OAC held and pending LP tmw (10/14) per NSGY - Will DEFER G-CSF now as pt remains HDS w acceptable MAP, on RA; but will cont to monitor closely - Reached out to Rad Onc (Dr. Martínez): pt's insurance denied FSRT so now plan is to re-sim for WBRT, and they can re-sim as inpt, or we can facilitate scheduling as outpt - Current RTC w primary Oncologist, Dr. Dunne, on 10/25 and can assist w adjusting if indicated, closer to DC - Rest of care per primary team Thank you for the consult. We will continue to follow with you. Please call with additional questions or concerns. >60 minutes was spent on this encounter; including preparing to see the patient, which involved review/interpretation of diagnostics and reports; obtaining and/or reviewing separately obtained history; performing appropriate physical exam; ordering/scheduling medications, tests or procedures; communicating findings and counseling/educating the patient, family and/or caregiver; documentation inEMR; and care coordination in a multidisciplinary approach in combination with relevant care team members. Attending physician previously developed plan of care, which I discussed with the patient, whom I saw independently, but participated in care coordination in a multidisciplinary approach in combination with relevant care team members. The patient verbalized understanding and agrees with plan. All questions answered to their satisfaction. Encouraged to call should other questions/concerns arise. RACHEL Adames Physician Supervisor [employer] Division of Medical Oncology [1] Past Medical History: Diagnosis Date Brain [...] SURGERY TUBAL LIGATION N/A Tubal Ligation from [facility] TYMPANOSTOMY TUBE PLACEMENT N/A Ear Surgery Eustachian Tube from [facility] [3] Family History Problem Relation Name Age of Onset No Known Problems Mother No Known Problems Father Diabetes Other Fibromyalgia Other [4] 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 Tobacco Use Smoking Status Former Current packs/day: 0.00 Average packs/day: 1.5 packs/day for 48.4 years (72.6 ttl pk-yrs) Types: Cigarettes Start date: 1975 Quit date: 10/17/2023 Years since quittin.9 Smokeless Tobacco Never [5] Allergies Allergen Reactions Cephalexin Other - please document in the comment field Patient states makes her feel tired Lisinopril Cough and Other - please document in the comment field Meloxicam Cough and Other - please document in the comment field Cosigned by Jim Nelson MD at 10/13/2024 9:50 PM EDT Associated attestation - Jim Nelson MD - 10/13/2024 9:50 PM EDT I discussed the case with the PA and agree with the findings and plan as documented. * Care Plan - Zhane Freeman - 10/13/2024 12:26 PM EDT Problem: Adult Inpatient Plan of Care Goal: Plan of Care Review Outcome: Ongoing, Progressing Goal: Patient-Specific Goal (Individualized) Outcome: Ongoing, Progressing Goal: Absence of Hospital-Acquired Illness or Injury Outcome: Ongoing, Progressing Goal: Optimal Comfort and Wellbeing Outcome: Ongoing, Progressing Goal: Readiness for Transition of Care Outcome: Ongoing, Progressing * Progress Notes - Zachary Brown - 10/13/2024 12:12 PM EDT Neurosurgery Consult Follow-up Note History, exam, and imaging review with attending and discussed on rounds this morning. Teresa Rivera is a 63 y.o. female presenting with history of atrial flutter status post ablation, hypertension, and small-cell lung cancer diagnosed 07/2023 with no cranial radiation ever, and brainmetastases status post left frontal craniotomy for metastasis resection on 09/05/2024 currently on chemotherapy as well as Xarelto (last dose 10/11 evening) presenting with a neutropenic fever. . Exam: GCS (EMV): 465 Awake, alert, oriented Follows commands appropriately Speech clear PERRL, EOMI ESQUEDA symmetrically, no drift Strength 5/5 throughout Sensation intact - Recommend LP - Recommend Radiation Oncology consult for possible treatment of residual tumor. - Rest of care per primary team - Neurosurgery will continue to follow - Thank you for allowing us to participate in the care of this patient. Please call with any questions or concerns. [phone] Zachary Brown MD Resident Physician, PGY-2 Department of neurosurgery Pager: [phone] Cosigned by Gabino Adam MD at 10/13/2024 1:44 PM EDT * Progress Notes - Blu Hare, PharmD - 10/12/2024 10:37 PM EDT Pharmacokinetic Consult - Therapeutic Drug Monitoring HPI and Hospital Course: Teresa Rivera is a 63 y.o. female admitted for Febrile neutropenia (CMS/HCC). Pharmacy consulted to assist with management of vancomycin indicated for neutropenic fever. An individualized dose was entered on behalf of the requesting MD/CARMEN. Details are listed below: Ht: Ht Readings from Last 1 Encounters: 10/12/24 1.702 m (5' 7 ) Wt: Wt Readings from Last 1 Encounters: 10/12/24 119 kg (262 lb) Creatinine: Creatinine, Plasma (mg/dL) Date/Time Value 10/12/2024 1651 0.99 10/04/2024 0943 0.73 WBC: WBC Count (10*3/uL) Date/Time Value 10/12/2024 1651 0.84 (LL) 10/04/2024 0943 7.20 CrCl: Estimated Creatinine Clearance: 77.7 mL/min (by C-G formula based on SCr of 0.99 mg/dL). Dose/Route/Frequency: Vancomycin 2500 mg IV once (~21 mg/kg) Vancomycin 1000 mg IV every 12 hours (~8 mg/kg) Comments: Based on patient age and CrCl, opted for q12h regimen. Estimated AUC on this regimen using population-based parameters: 477. Primary team pharmacist will continue to follow with dosing and monitoring recommendations as appropriate. Thank you, Blu Hare PharmD 10/12/24 10:34 PM * H&P - John Nieves MD - 10/12/2024 10:22 PM EDTAssociated Order(s): Consult to [facility] Images from the original note were not included. Consult to [facility] Consult performed by: John Nieves MD Consult ordered by: Callie Samuel PA [facility] Medicine History & Physical Subjective 10/12/2024 Chief Complaint: Chief Complaint Patient presents with Dizziness History Of Present Illness Teresa Rivera is a 63 y.o. female with a PMH of metastatic small-cell lung cancer with brain metastasis s/p craniotomy and tumor resection and recent initiation of chemotherapy, T2DM, HTN, COPD, HLD, and chronic pain who presents with lightheadedness, dizziness, and headache. Patient's family is at bedside who helps provide history. They report that patient underwent frontal craniotomy in mid-August for metastatic brain lesion; there was residual tumor on post-surgical MRI. Since, patient has been doing well and was cleared to resume Xarelto on 09/22/24. She had her first round of atezolizumab/carboplatin/etoposide on 10/04. Over the last 3 days, family reports that she has reported a headache and abdominal pain. Denies any vision changes. They deny objective fever but her sister says that she has felt warm with intermittent sweats. They say she had an isolated episode of vomiting a few days ago but has not had diarrhea. She denies dysuria, chest pain/pressure, SOA.She has had a cough over the last few days but has not been coughing anything up. She denies rashes. Deny any sick contacts. Vitals in ED notable for T101.6, HR 116, BP 107/68, O2 94% on RA. Labs notable for WBC 0.84 (ANC 0.03), platelets 67, sodium 131, magnesium 1.2, procalcitonin 0.69, CRP 90.1. CXR showed concern for right upper lobe airspace opacities. CT head showed residual hyperdensity with surrounding subarachnoid hemorrhage and concern for subdural hemorrhage. Neurosurgery consulted by ED; no acute neurosurgical intervention. Patient was given vancomycin, cefepime, and Unasyn in the ED. Past Medical History Medical History[1] Surgical History Surgical History[2] I have reviewed this patient's past surgical history Family History Family History[3] 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[4] Travel History Travel Screening Question Response Have you been in contact with someone who was sick? No / Unsure Do you have any of the following new or worsening symptoms? Fever;Cough;Shortness of breath Have you traveled internationally or domestically in the last month? No Travel History Travel since 09/12/24 No documented travel since 09/12/24 Immunizations Immunization History Administered Date(s) Administered Hep A, Adult 02/08/2018, 09/03/2018 Influenza, Unspecified 06/03/2013, 04/24/2014 Influenza, high-dose, quadrivalent 02/14/2020 Influenza, injectable, quadrivalent, preservative free 02/08/2018, 02/11/2019 Influenza, seasonal, injectable 05/27/2013, 02/19/2017, 03/13/2021 Moderna COVID-19 Vaccine (Child Welfare Counselor) 12+ years 06/26/2020, 02/06/2021, 10/03/2021 Moderna COVID-19 Vaccine Bivalent 6months+ 07/01/2022 Moderna Covid-19 Vaccine 12y+, Dom Protein, Preservative free 06/11/2023, 03/15/2024 Pneumococcal Polysaccharide PPV23 07/13/2017, 06/17/2018 SARS-CoV-2, Unspecified 05/18/2020 Tdap 09/03/2017 Zoster, Recombinant 06/17/2018 Allergies Cephalexin, Lisinopril, and Meloxicam Home Medications Current Outpatient Medications Medication Instructions Accu-Chek Softclix Lancets lancets USE TO TEST BLOOD SUGAR 3 TIMES EACH DAY Alcohol Swabs (Easy Touch Alcohol Prep Medium) 70 % pads atorvastatin (LIPITOR) 40 mg, Daily B-D UF III MINI PEN NEEDLES 31G X 5 MM misc benzonatate (TESSALON) 100 mg, 3 times daily PRN Blood Glucose Monitoring Suppl ([employer]-Credis[employer]ios Verio Flex System) w/Device kit Lrshdpf-Ozjngkivzrd-Ipqkvxdmcl (Breztri Aerosphere) 160-9-4.8 MCG/ACT aerosol 2 puffs, 2 times daily Calcium Carb-Cholecalciferol 600-10 MG-MCG tablet 600 mg, Daily carvedilol (COREG) 12.5 mg, 2 times daily with meals cetirizine (ZYRTEC) 10 mg, Daily ciclopirox (Penlac) 8 % solution Apply over affected nail fold daily. Continuous Glucose Sensor (Dexcom G6 Sensor) [facility] USE DIRECTED TO MEASURE BLOOD SUGAR. REPLACE SENSOR EVERY 10 DAYS dexamethasone (Decadron) 2 MG tablet Take 2 tablets by mouth every 8 hours for 4 days, THEN 2 tablets every 12 hours for 4 days, THEN 1 tablet every 12 hours. empagliflozin (JARDIANCE) 25 mg, Daily FLUoxetine (PROZAC) 40 mg, Daily FREESTYLE LITE test strip USE TO TEST BLOOD SUGAR 3 TIMES EACH DAY AND NEEDED gabapentin (NEURONTIN) 600 mg, 4 times daily hydrOXYzine HCl (ATARAX) 25 mg, Daily PRN insulin glargine-yfgn 45 Units, Subcutaneous, Nightly, Can be adjusted per the MD at [facility] insulin lispro (Admelog, HumaLOG) 100 UNIT/ML injection pen Insulin Lispro (ADMELOG, HUMALOG) 15 Units, Subcutaneous, 3 times daily with meals, Can be adjustedper the MD at [facility] Lantus SoloStar 100 UNIT/ML injection pen levETIRAcetam (KEPPRA) 500 mg, Oral, 2 times daily magnesium oxide (MAG-OX) 400 mg, Oral, 2 times daily, Hold for diarrhea melatonin tablet metFORMIN (GLUCOPHAGE) 1,000 mg, 2 times daily with meals montelukast (Singulair) 10 MG tablet Take 1 tablet by mouth nightly. ondansetron (ZOFRAN) 8 mg, Every 8 hours PRN ondansetron (ZOFRAN) 8 mg, Oral, 2 times daily, Take on Day 4 of cycle and then take PRN pantoprazole (PROTONIX) 40 mg, Daily polyethylene glycol (MIRALAX) 17 g, Oral, Daily prochlorperazine (COMPAZINE) 10 mg, Oral, Every 6 hours PRN rOPINIRole (Requip) 1 MG tablet TAKE 1 TABLET 2 TIMES EACH DAY senna (SENOKOT) 17.2 mg, Oral, Nightly SITagliptin (JANUVIA) 50 mg, Daily tiZANidine (ZANAFLEX) 2 mg, Nightly triamterene-hydrochlorothiazide (Maxzide-25) 37.5-25 MG tablet Take 1 tablet by mouth every morning. Vitamin B-12 ER 1000 MCG tablet controlled-release 1 tablet, Daily Xarelto 20 mg, Every evening Review of Systems As above Objective Last Recorded Vitals Blood pressure 115/60, pulse 83, temperature 36.7 ??C (98.1 ??F), temperature source Oral, resp. rate 24, height 1.702 m (5' 7 ), weight 119 kg (262 lb), SpO2 96%. Physical Exam Constitutional: Appearance: She is obese. Eyes: General: No scleral icterus. Pupils: Pupils are equal, round, and reactive to light. Cardiovascular: Rate and Rhythm: Normal rate and regular rhythm. Heart sounds: No murmur heard. Pulmonary: Effort: No respiratory distress. Abdominal: General: There is no distension. Tenderness: There is no abdominal tenderness. There is no guarding. Musculoskeletal: Right lower leg: No edema. Left lower leg: No edema. Skin: Findings: No rash. Neurological: Mental Status: She is oriented to person, place, and time. She is lethargic. Cranial Nerves: No cranial nerve deficit. Data Labs in last 18 hours CBC WBC 0.84 (LL) Hb 11.4 Plt 67 (L) Hct 34.5 ANC 0.03 (LL) INR ??, PTT ??, Anti-Xa ?? BMP Na 131 (L) Cl 93 (L) BUN 27 (H) Glu 110 (H) K 3.9 Co2 25 Cr 0.99 Ca 9.1 iCa ?? Mg 1.2 (L), Phos 2.8 Lactate ?? LFT AST 17 AlkPhos 74 T Prot 6.2 (L) ALK 30 Bili 0.9 Alb ?? D.Bili ?? IMAGING (past 24h): CT Head wo IV Contrast Final Result Prior left frontal craniotomy for resection of superior frontal mass. There is residual hyperdense components at the site of resection measuring 2.2 by 2.7 x 1.8 cm (CC by AP by TR) with surrounding subarachnoid hemorrhage. Left frontal extra-axial hyperdense fluid collection measuring up to 8 8 mmlikely a a subdural hemorrhage. CRITICAL RESULT: No. COMMUNICATION: Per this written report. Drafted by Julia Hernandez MD on 10/12/2024 6:48 PM Final report signed by Julia Hernandez MD on 10/12/2024 6:[address] Abdomen Pelvis w IV Contrast Final Result 1. No acute findings. ATTENDING COMMENT: There are mild opacities within the left lung base which may represent atelectasis or mild aspiration/airspace disease in the correct clinical setting. CRITICAL RESULT: No. COMMUNICATION: Per this written report. Preliminary report signed by Silas Guidry MD on 10/12/2024 7:11 PM By electronically signing this report, I, the attending physician, attest that I have personally reviewed the images/data for the above examination(s) and agree with the final edited report. Drafted by Silas Guidry MD on 10/12/2024 7:06 PM Final report signed by Talisha Mo MD on 10/12/2024 10:02 PM XR Chest 1 View Final Result Similar right upper lobe airspace opacities and background scarring CRITICAL RESULT: No. COMMUNICATION: Per this written report. Drafted by Julia Hernandez MD on 10/12/2024 5:58 PM Final report signed by Julia Hernandez MD on 10/12/2024 6:01 PM MR Head w and wo IV Contrast (Results Pending) CT Chest w IV Contrast (Results Pending) Assessment/Plan Assessment/ Plan Principal Problem: Febrile neutropenia (CMS/HCC) Teresa Rivera is a 63 y.o. female with PMH as per above who presents with sepsis with febrile severe neutropenia. # metastatic small-cell lung cancer on chemotherapy # sepsis with febrile severe neutropenia - WBC = 0.84, ANC = 30. Likely due to recent chemotherapy (Carboplatin/Etoposide/Atezolizumab every21 days; last infusion 10/06). - T 101.6, HR 116, BP 107/68 on admission - CRP and procal elevated - nasopharyngeal PCR negative. CXR showed possible airspace disease and family reports cough. No urinary symptoms. Family reports headache and worsening R sided weakness for 3 days (CTH findings discussed below) but no meningeal signs on exam. No rash or concern for cellulitis. No GI symptoms. PLAN: - continue vancomycin, cefepime, and ampicillin for empiric coverage of meningitis/central [facility] infection and bacterial pneumonia - ordered additional 1L LR given initial presentation with hypotension - follow up infectious workup ordered by ED: blood cx, UA w/ reflex culture - consult med onc in AM # concern for bacterial pneumonia - CTAP showed mild opacities within the left lung base which may represent atelectasis or mild aspiration/airspace disease. CXR showed right upper lobe airspace disease. - family reports cough - nasopharyngeal panel negative - CRP and procal elevated PLAN: - MRSA nares ordered - currently on vanc for possible meningitis as above. If meningitis ruled out and MRSA nares negative, can d/c MRSA coverage from a PNA treatment perspective - abx as discussed above - CT chest ordered # intracranial surgical bed mass versus fluid collection with surrounding subarachnoid hemorrhage # left frontal extra-axial hyperdense fluid collection c/f subdural hemorrhage - had left frontal craniotomy on 09/05/24 for metastatic small-cell lung cancer. Completed Keppra and is currently on dexamethasone taper. - differential includes seroma versus abscess versus hematoma versus metastatic lesion PLAN: - NSGY consulted, appreciate recs - MRI head w/ and w/o ordered - resume PO dexamethasone 2mg q12h (was previously set to end on 10/16/24) - resume Keppra 500mg BID # paroxysmal atrial fibrillation with RVR, history of atrial flutter s/p CTI ablation (11/2023) - had atrial flutter s/p ablation without recurrence. Then developed afib. No longer on antiarrhythmic but remains on Xarelto. - Has had intermittent RVR in ED. Initially hypotensive with RVR but now remains normotensive afterIV fluid resuscitation. Converts back to sinus rhythm frequently. - Suspect RVR is in setting of acute illness PLAN: - holding AC for possible LP. On Xarelto at home. Ordered anti-Xa level. - additional fluid as above - ordered additional 2g IV mag. Goal K >4, Mg >2. - hold home carvedilol ISO recent hypotension and concern for sepsis # chemotherapy-induced anemia and thrombocytopenia - Plt 41, Hgb 10.1. - Monitor CBC daily - Transfuse if Hgb <7, plt <10 # hyponatremia - unclear etiology. Patient asymptomatic and euvolemic. Ddx includes SIADH given brain mets and lung cancer. PLAN: - serum osm, urine Na, and urine osm ordered - AM CMP ordered # hypomagnesemia - Mg 1.2 on admission. Family denies alcohol use and diarrhea. - given 2g IV mag in ED PLAN: - additional 2g IV mag ordered - AM Mg ordered # hypoalbuminemia - albumin 3.4, likely due to cancer and acute illness Chronic medical conditions - T2DM: hold home meds (Januvia, Jardiance, metformin). Start weight-based insulin with 15u glargine and SSI. - HTN: holding Coreg - Chronic pain: reduced dose of home gabapentin given mild level of somnolence - COPD: home inhalers - Mood: resume home fluoxetine and PRN hydroxyzine - HLD: resume home statin - Obesity, class III (BMI 41) Fluids: PO and Bolus PRN DVT Ppx: SCDs, holding pending possible LP Diet: Regular diet Code status: Full Code Dispo: Admit to Progressive Care Electronically Signed by: John Nieves MD - 10/12/2024 - 10:22 PM John Nieves MD Internal Medicine PGY-2 [1] Past Medical History: Diagnosis Date Brain [...] SURGERY TUBAL LIGATION N/A Tubal Ligation from [facility] TYMPANOSTOMY TUBE PLACEMENT N/A Ear Surgery Eustachian Tube from [facility] [3] Family History Problem Relation Name Age [...] use: No Drug use: Never Cosigned by Berto Stanford DO at 10/13/2024 1:34 PM EDT Associated attestation - Berto Stanford DO - 10/13/2024 1:34 PM EDT DOS: 10/12/24 I saw and evaluated the patient with the resident/fellow. I discussed the case with the resident/fellow and agree with the findings and plan as documented. S: HPI as listed below O: Acutely ill appearing, diaphoretic. Dry mucous membranes. EOMI intact. Conjunctiva normal. Hearttachycardic and irregular rhythm, no murmurs, rubs, gallops. Lungs CTAB with no rales, wheezes or rhonchi. Abdomen nondistended, nontender, normoactive bowel sounds. Lower extremities without tenderness or edema. Drowsy but arouseable, unable to answer questions without falling back asleep. No focal neurologic deficits. A/P: Sepsis, ddx: PNA, meningitis/brain abscess Acute encephalopathy, 2/2 infection vs structural in the setting of SAH/SDH Neutropenic fever Afib w/ RVR, known diagnosis w/ ablation in past SCLC w/ brain mets, 09/05/24: brain resection SAH/SDH -unasyn, cefepime, and vanc -CT chest -MRI head w&wo -follow all cultures -IVF, if no improvement in HR and BP tolerates will resume home coreg -nsgy consulted - no acute surgical intervention, defer LP in the setting of xarelto -onc consult in am * Consults - All Prabhakar MD - 10/12/2024 7:29 PM EDTAssociated Order(s): IP CONSULT TO NEUROSURGERY Reason For Consult: Neutropenic fever s/p craniotomy 09/05 Requesting Service: ED Requested Date/Time: 10/12/2024 7:30 PM History Of Present Illness: Teresa Rivera is a 63 y.o. female with a history of atrial flutter status post ablation, hypertension, and small-cell lung cancer diagnosed 07/2023 with no cranial radiation ever, and brain metastases status post left frontal craniotomy for metastasis resection on 09/05/2024 currently on chemotherapy as well as Xarelto (last dose 10/11 evening) presenting with a neutropenic fever. Over the past 1-2 days, the patient has had headache and dizziness and diaphoresis. Shewas found to have a fever and was brought into the hospital for further evaluation. While here, shehas been in and out of atrial fibrillation, although cardiology believes this is related to an infection. White blood cell count 0.84, she was started on Unasyn, vancomycin, cefepime, and Neurosurgery was called to evaluate for cranial cause of infection after CT scan of the head demonstrated postsurgical changes. Patient denies any wound drainage or signs of infection from her craniotomy. Patient does take Xarelto, last dose less than 24 hours ago. Past Medical, Surgical, and 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 noncontributory except as mentioned in HPI Medications: Current Medications[1] Allergies: Cephalexin, Lisinopril, and Meloxicam Physical Exam GEN: Morbidly obese, diaphoretic HEENT: normocephalic, atraumatic, no scleral icterus, oropharynx clear PULM: clear to auscultation bilaterally, no increased work of breathing, normal effort CV: normal rate and regular rhythm ABD: soft, non-tender, non-distended MSK: no joint swelling, no clear deformity SKIN: Diaphoretic, capillary refill <2 seconds PSYCHE: normal mood and affect Neuro Exam GCS (EMV): 465 Awake, alert, oriented Follows commands appropriately CN II-XII intact Speech clear PERRL, EOMI ESQUEDA symmetrically, no drift Cranial incision clean dry and well healed Labs I personally reviewed the following pertinent labs Results from last 7 days Lab Units 10/12/24 1651 WBC 10*3/uL 0.84* HEMOGLOBIN g/dL 11.4 HEMATOCRIT % 34.5 PLATELETS 10*3/uL 67* Results from last 7 days Lab Units 10/12/24 1651 SODIUM mmol/L 131* POTASSIUM mmol/L 3.9 CHLORIDE mmol/L 93* CO2 mmol/L 25 BUN mg/dL 27* CREATININE mg/dL 0.99 EGFR mL/min/1.73m*2 64.2 GLUCOSE mg/dL 110* CALCIUM mg/dL 9.1 Imaging I personally reviewed CT scan of the head taken today demonstrating evidence of left frontal craniotomy and tumor resection Assessment and Plan Teresa Rivera is a 63 y.o. female with a history of atrial flutter status post ablation, hypertension, and small-cell lung cancer diagnosed 07/2023 with no cranial radiation ever, and brain metastases status post left frontal craniotomy for metastasis resection on 09/05/2024 currently on chemotherapy as well as Xarelto (last dose 10/11 evening) presenting with a neutropenic fever. Assessment/Plan Active Problems: There are no active Hospital Problems. - No acute neurosurgical intervention at this time given patient stability - Continue workup of infection with blood culture, CXR, UA, Viral respiratory panel - Obtain MRI head w/wo contrast - Continue medical management with empiric antibiotics - Will defer lumbar puncture in setting of anticoagulation with Xarelto - Obtain Anti-Xa value - Will discuss the role of further neurosurgical intervention - Rest of care per primary team All Prabhakar M.D. Resident Physician PGY-3 Department of Neurosurgery [facility] [1] Current Facility-Administered Medications Medication Dose Route Frequency Provider Last Rate Last Admin cefepime (Maxipime) 2 g in sodium chloride 0.9% 100 mL IVPB (vial adapter required) 2 g IntravenousOnce LizzieCallie PA 36.7 mL/hr at 10/12/24 1836 2 g at 10/12/24 183 magnesium sulfate IVPB 2 g 2 g Intravenous Once Rebsamen Callie A PA 25 mL/hr at 10/12/24 94549 g at 10/12/24 184 vancomycin (Vancocin) 2,500 mg in sodium chloride 0.9 % 500 mL IVPB 20 mg/kg Intravenous Once Rebsamen Callie A PA 2,500 mg at 10/12/24 1848 Current Outpatient Medications Medication Sig Dispense Refill Accu-Chek Softclix Lancets lancets USE TO TEST BLOOD SUGAR 3 TIMES EACH DAY Alcohol Swabs (Easy Touch Alcohol Prep Medium) 70 % pads atorvastatin (Lipitor) 40 MG tablet Take 1 tablet by mouth daily. B-D UF III MINI PEN NEEDLES 31G X 5 MM misc benzonatate (Tessalon) 100 MG capsule Take 1 capsule by mouth 3 (three) times a day as needed for cough. (Patient not taking: Reported on 10/04/2024) Blood Glucose Monitoring Suppl ([employer] Verio Flex System) w/Device kit Obcxuji-Flqtrlojuse-Uwakjhwttz (Breztri Aerosphere) 160-9-4.8 MCG/ACT aerosol Inhale 2 [...] daily. Continuous Glucose Sensor (Dexcom G6 Sensor) [facility] USE DIRECTED TO MEASURE BLOOD SUGAR. REPLACE [...] Can be adjusted per the MD at [facility] insulin lispro (Admelog, HumaLOG) 100 UNIT/ML injection pen (Patient not taking: Reported on 10/04/2024) Insulin Lispro (Admelog, HumaLOG) 100 UNIT/ML injection vial Inject 15 Units under the skin 3 timesa day with meals. Can be adjusted per the MD at [facility] Lantus SoloStar 100 UNIT/ML injection pen levETIRAcetam (Keppra) 500 MG tablet Take 1 tablet by mouth 2 times a day. magnesium oxide (Mag-Ox) 400 MG tablet Take 1 tablet by mouth 2 times a day. Hold for diarrhea 60 tablet 1 melatonin tablet metFORMIN (Glucophage) 1000 MG tablet Take 1 tablet by mouth 2 (two) times a day with meals. montelukast (Singulair) 10 MG tablet Take 1 tablet by mouth nightly. ondansetron (Zofran) 8 MG tablet Take 1 tablet by mouth every 8 hours as needed for nausea or vomiting. ondansetron (Zofran) 8 MG tablet Take 1 tablet by mouth 2 times a day. Take on Day 4 of cycle and then take PRN 30 tablet 5 pantoprazole (Protonix) 40 MG EC tablet Take 1 tablet by mouth daily. Do not crush, chew, or split.(Patient not taking: Reported on 10/04/2024) polyethylene glycol (Miralax) 17 g packet Take 17 g by mouth daily. (Patient not taking: Reported on 10/04/2024) prochlorperazine (Compazine) 10 MG tablet Take 1 tablet by mouth every 6 hours as needed for nauseaor vomiting. 30 tablet 3 rOPINIRole (Requip) 1 MG tablet TAKE 1 [...] Take 1 tablet by mouth every evening. Cosigned by Gabino Adam MD at 10/13/2024 6:58 PM EDT Associated attestation - Gabino Adam MD - 10/13/2024 6:58 PM EDT Gabino Adam STAFF ATTESTATION (10/12/2024) I saw and evaluated the patient with the resident. I discussed the case with the residents and agree with the findings and plan as documented in the edited documentation below. Teresa Rivera presents with neutropenic fever s/p craniotomy. No acute neurosurgical intervention needed tonight given patient stability. Gabino Adam MD, PhD * ED Provider Notes - Callie Samuel PA - 10/12/2024 3:22 PM EDT Images from the original note were not included. - HPI Chief Complaint Patient presents with Dizziness Teresa Rivera is a 63 yo female with pmhx of afib s/p ablation, DM, HTN, COPD, primary small cell carcinoma of the lung with recent craniotomy on 08/31/24 for brain mets. She presents today with fever, headache, weakness, abdominal pain and dizziness. Reports her symptoms worsened today and she is on active chemo and anticoagulation. She states that her RLE is weak but this has been an ongoing issue for her. Feels like her abdomen is more distended than normal and reports LLQ and LUQ abdominal pain. Has not had radiation in a while. Craniotomy last month for mets to her brain. She has had no issues with headache or neuro symptoms until today. Denies vomiting, diarrhea, chest pain, shortnessof breath. Patient History Medical History[1] Surgical History[2] Family History[3] 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[4] Allergies: Allergies[5] Physical Exam ED Triage Vitals [10/12/24 1530] Temp Heart Rate Resp BP (!) 38.7 ??C (101.6 ??F) 116 20 107/68 SpO2 Temp Source Heart Rate Source Patient Position 94 % Oral -- -- BP Location FiO2 (%) -- -- Physical Exam Vitals and nursing note reviewed. Constitutional: Appearance: She is obese. She is not ill-appearing, toxic-appearing or diaphoretic. HENT: Head: Normocephalic and atraumatic. Nose: Nose normal. Mouth/Throat: Mouth: Mucous membranes are moist. Pharynx: Oropharynx is clear. Eyes: Extraocular Movements: Extraocular movements intact. Conjunctiva/sclera: Conjunctivae normal. Pupils: Pupils are equal, round, and reactive to light. Cardiovascular: Rate and Rhythm: Regular rhythm. Tachycardia present. Pulses: Normal pulses. Heart sounds: Normal heart sounds. Pulmonary: Effort: Pulmonary effort is normal. Breath sounds: Normal breath sounds. Abdominal: General: There is distension. Palpations: Abdomen is soft. Tenderness: There is abdominal tenderness (LLQ). Musculoskeletal: General: Normal range of motion. Cervical back: Normal range of motion and neck supple. No rigidity. Skin: General: Skin is warm and dry. Capillary Refill: Capillary refill takes less than 2 seconds. Coloration: Skin is not jaundiced or pale. Neurological: Mental Status: She is alert and oriented to person, place, and time. Motor: Weakness (RLE) present. Psychiatric: Mood and Affect: Mood normal. Behavior: Behavior normal. Tk Coma Scale Score: 15 ED Course & MDM - Assessment: 63 y.o. female presents to ED with complaint of ONEAL, fever, weakness. It should be noted that the chronic conditions includes SLCL with mets to brain, recent craniotomy, COPD, afib on AC, DM, HTN, depression, anxiety, which currently is not at goal therapy. This complicates the clinical picture because it Comorbidities: may be exacerbating symptoms, increases the amount and complexity of data to be reviewed, complicates the clinical workup, and increases the risk for morbidity Differential Diagnosis: meningitis, intracranial abscess, surgical site infection, dehydration, hypomag, among others In order to fully explore the differential diagnosis the following treatments and tests were ordered: ED Medication Administration from 10/12/2024 1522 to 10/12/2024 1936 Date/Time Order Dose Route Action 10/12/2024 1709 EDT lactated Ringer's infusion 1,000 mL 1,000 mL Intravenous New Bag 10/12/2024 1710 EDT acetaminophen (Tylenol) tablet 1,000 mg 1,000 mg Oral Given 10/12/2024 1711 EDT ondansetron (Zofran) injection 4 mg 4 mg Intravenous Given 10/12/2024 1712 EDT ampicillin-sulbactam (Unasyn) 3 g in sodium chloride 0.9% 100 mL IVPB (vial adapter required) 3 g Intravenous New Bag 10/12/2024 1739 EDT iohexol (OMNIPaque) 300 MG/ML injection 100 mL 100 mL Intravenous Given 10/12/2024 1816 EDT ampicillin-sulbactam (Unasyn) 3 g in sodium chloride 0.9% 100 mL IVPB (vial adapter required) 0 g Intravenous Stopped 10/12/2024 1836 EDT cefepime (Maxipime) 2 g in sodium chloride 0.9% 100 mL IVPB (vial adapter required) 2 g Intravenous New Bag 10/12/2024 1845 EDT magnesium sulfate IVPB 2 g 2 g Intravenous New Bag 10/12/2024 1848 EDT vancomycin (Vancocin) 2,500 mg in sodium chloride 0.9 % 500 mL IVPB 2,500 mg Intravenous Given All Other Orders Ordered Status Ordering Provider 10/12/241923 Manual Differential Once Final result CALLIE SAMUEL A 10/12/24 192 Morphology Once Final result CALLIE SAMUEL A 10/12/24 191 Consult to Neurosurgery Once Specialty: Neurosurgery Provider: (Not yet assigned) Acknowledged CALLIE SAMUEL 10/12/24 190 Consult to [facility] Once Specialty: Internal Medicine Provider: (Not yet assigned) Acknowledged CALLIE SAMUEL 10/12/24 190 ED to floor bed request Once Acknowledged CALLIE SAMUEL 10/12/24 1854 Once Specialty: Cardiology Provider: (Not yet assigned) Canceled CALLIE SAMUEL 10/12/24 1830 Once Specialty: Cardiology Provider: (Not yet assigned) Canceled LIZZIE CALLIE A 10/12/24 1814 ECG Adult Once Preliminary result SHEKHAR LEDEZMA 10/12/24 1801 Initiate neutropenic isolation Continuous Acknowledged REBMEN CALLIE A 10/12/24 174 Initiate contact isolation Continuous Comments: Added via Instant Order OPA Acknowledged BPA, INSTANT ORDERS 10/12/24 1742 Initiate droplet isolation Continuous Comments: Added via Instant Order OPA Acknowledged BPA, INSTANT ORDERS 10/12/[address] Abdomen Pelvis w IV Contrast Once Preliminary result REBSAMEN, CALLIE A 10/12/[address] Head wo IV Contrast Once Final result REBSAMEN CALLIE A 10/12/24 1623 Lactic acid, venous STAT Final result REBSAMEN, CALLIE A 10/12/24 1623 Nasopharyngeal Respiratory Panel Once In process REBSAMEN CALLIE A 10/12/24 1623 XR Chest 1 View One time imaging Final result REBSAMEN, CALLIE A 10/12/24 1623 Urinalysis with reflex microscopic AND reflex culture (IF UTI SUSPECTED) STAT Acknowledged REBSAMEN, CALLIE A 10/12/24 1623 Urinalysis with reflex microscopic (Culture NOT Included) PROCEDURE ONCE Ordered REBSAMEN CALLIE A 10/12/24 1623 Urine Meek Panel PROCEDURE ONCE Ordered REBSAMEN, CALLIE A 10/12/24 1623 CBC w/diff STAT Final result REBSAMEN, CALLIE A 10/12/24 1623 CMP STAT Final result REBSAMEN, CALLIE A 10/12/24 1623 Magnesium STAT Final result REBSAMEN, CALLIE A 10/12/24 1623 Phosphorus STAT Final result REBSAMEN, CALLIE A 10/12/24 1623 C-Reactive protein STAT Final result REBSAMEN, CALLIE A 10/12/24 1623 Procalcitonin STAT Final result REBSAMEN, CALLIE A 10/12/24 1623 Blood Culture (Aerobic/Anaerobet Set) STAT Preliminary result REBSAMEN, CALLIE A 10/12/24 1623 Blood Culture (Aerobic/Anaerobet Set) STAT Preliminary result REBSAMEN, CALLIE A 10/12/24 1528 EKG now - STAT (adult) Once Final result SHEKHAR LEDEZMA ED Course as of 10/12/241935October 12, 2024 1539 EKG now - STAT (adult) Sinus tach [MR] 1639 BP: 107/68 [MR] 1639 Heart Rate: 116 [MR] 1639 Resp: 20 [MR] 1639 SpO2: 94 % [MR] 1639 Temp(!): 38.7 ??C (101.6 ??F) [MR] 1640 On my initial assessment, patient's blood pressure is soft, she is tachycardic, febrile, satting 94% on room air with normal respiratory effort. 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 She is on chemo. Here today with ONEAL, fever, weakness, abdominal pain LLQ and LUQ. Sister at bedside reports her abdomen is more distended than normal. On exam her abdomen is not significantly tender on palpation. She is tachycardic but heart and lung sounds are clear to auscultation bilaterally. RLE weakness on exam which from record review is not an acute problem for her.PERRLA, eom intact. No meningeal signs but meningitis definitely on differential with recent neurosu rgery + headache + fever. Her craniotomy incision sites have no erythema or drainage. No dehiscenceappreciated. [MR] 1652 Had an interactive discussion with ED pharmacist regarding abx coverage for patient with sepsis and hx of neurosurgery instrumentation with craniotomy on 08/31/24. Will give vancomycin, cefepime,and unasyn. [MR] 1726 Lactate: 1.2 WNL, reassuring [MR] 1740 BUN(!): 27 [MR] 1741 Creatinine: 0.99 [MR] 1741 Sodium(!): 131 [MR] 1741 Potassium: 3.9 [MR] 1741 Chloride(!): 93 [MR] 1741 CRP, Plasma(!): 90.1 elevated [MR] 1741 Procalcitonin(!): 0.69 elevated [MR] 1741 Magnesium(!): 1.2 Will replace [MR] 1759 WBC(!!): 0.84 Patient had 7.2 WBC 8 days ago, new neutropenia, will initiate neutropenic precautions [MR] 1804 XR Chest 1 View FINDINGS: Similar right upper lobe airspace opacities and background scarring. Redemonstrated right suprahilar nodes. Stable cardiac mediastinal contours. No pneumothorax or pleural effusion. No acute osseous abnormality. IMPRESSION: Similar right upper lobe airspace opacities and background scarring CRITICAL RESULT: No. [MR] 1804 Hemoglobin: 11.4 [MR] 1805 Hematocrit: 34.5 [MR] [address] and was not attached to monitors. When I walked into room she was in no acute distress. I reattached patient's monitors and HR was 170, BP 80/50s. EKG ordered and patient found to be in afib. Patient was NSR on arrival to ED. She previously had ablation for this. Second IV was obtained and patient's LR bolus began running again as it could not run with the abx. Patient moved to critical room. Cardiology consult placed and paged for arrhythmia management in setting of sepsis. [MR] 1833 ECG Adult Aflutter with variable Av block [MR] 1854 Had an interactive discussion with cards electronic prepress system operator, States to avoid rate control in patient and to NOT give IV metoprolol. By time resident could come to eval, she was in NSR with rate 95. Recommends to reach back out if needed but no cards eval at this time, [MR] 1907 CT Head wo IV Contrast FINDINGS: Prior left frontal craniotomy for resection of superior frontal mass. There is residual hyperdense components at the site of resection measuring 2.2 by 2.7 x 1.8 cm (CC by AP by TR) with surrounding subarachnoid hemorrhage. There is left frontal extra-axial hyperdense fluid collection measuring up to 8 mm. No significant midline shift or mass effect. No territorial infarcts. Similar configurationof the ventricles. No hydrocephalus. Basal cisterns are patent. Left maxillary opacification. Mastoid air cells are clear. IMPRESSION: Prior left frontal craniotomy for resection of superior frontal mass. There is residual hyperdense components at the site of resection measuring 2.2 by 2.7 x 1.8 cm (CC by AP by TR) with surrounding subarachnoid hemorrhage. Left frontal extra-axial hyperdense fluid collection measuring up to 8 8 mmlikely a a subdural hemorrhage. CRITICAL RESULT: No. [MR] 1916 Consult to neurosurgery placed and paged [MR] 1929 After interactive discussion with neurosurgery, patient will be evaluated by them. [MR] 1931 After interactive discussion with hospital medicine, patient accepted to their service. HARRISON toBroken Erendira PA-C pending admission to hospital medicine. [MR] ED Course User Index [MR] Callie Samuel PA Social Determinates of Health Risks (including Economic Stability, Education and level of understanding, Healthcare access and quality and concerning social factors): Lives far away Ultimately, this patient was was signed out to the oncoming provider (Signed Out) Patient care assumed by oncoming provider, Joya Krishna PA-C, at shift change, tentative plan at the time of sign-out was pending admission and neurosurgery evaluation. ED Prescriptions None Disposition Admit Requested Location: [facility] [[id number]] - [1] Past Medical History: Diagnosis Date Brain [...] SURGERY TUBAL LIGATION N/A Tubal Ligation from [facility] TYMPANOSTOMY TUBE PLACEMENT N/A Ear Surgery Eustachian Tube from [facility] [3] Family History Problem Relation Name Age of Onset No Known Problems Mother No Known Problems Father Diabetes Other Fibromyalgia Other [4] Tobacco Use Smoking status: Former Current packs/day: 0.00 Average packs/day: 1.5 packs/day for 48.4 years (72.6 ttl pk-yrs) Types: Cigarettes Start date: 1975 Quit date: 10/17/2023 Years since quittin.9 Smokeless tobacco: Never Vaping Use Vaping status: Never Used Substance Use Topics Alcohol use: No Drug use: Never [5] Allergies Allergen Reactions Cephalexin Other - please document in the comment field Patient states makes her feel tired Lisinopril Cough and Other - please document in the comment field Meloxicam Cough and Other - please document in the comment field Callie Samuel PA 10/12/241937 Cosigned by Shekhar Ledezma MD at 10/13/2024 8:19 PM EDT Associated attestation - Shekhar Ledezma MD - 10/13/2024 8:19 PM EDT I attest to being involved in providing substantive part of the medical decision making in patient care. * ED Triage Notes - Milagro Gordon RN - 10/12/2024 3:22 PM EDT light headed, dizziness, trouble walking, s/p brain surgery 6 weeks ago. ON chemo * Progress Notes - Joya Krishna PA - 10/12/2024 3:22 PM EDT Images from the original note were not included. ED TRANSFER OF CARE NOTE Transferring provider: MARIA GUADALUPE Samuel Transferring attending: Darien HARRISON Time: 1929 I received sign-out and accepted care of this patient from the previous ED providers caring for this patient. I reviewed the patient's history, exam, work- up, and treatment plan up to this point. Please see the primary ED Provider Note for complete elements of the history, physical exam, and ED course. PERTINENT HISTORY: In brief, Teresa Rivera is a 63 y.o. female with relevant PMH SLCL with mets tobrain, recent craniotomy, COPD, afib on AC, DM, HTN, depression, anxiety who presented to the ED for evaluation of fever, headache, weakness, abdominal pain and dizziness . Patient was started on broad-spectrum antibiotics due to concern for sepsis and for a neutropenic fever. Cardiology was consulted due to patient going in and out of AFib during emergency department visit. Neurosurgery was additionally consulted due to findings on CT head without concerning for residual hyperdense components of the site of resection measuring 2.2 x 2.7 by 1.8 cm with surrounding subarachnoid hemorrhage. Left frontal extra-axial hyperdense fluid collection measuring up to 8 mm, likely a subdural hemorrhage . PENDING: I accepted care of this patient from the previous provider pending admission to hospital medicine. ED Medication Administration from 10/12/2024 1522 to 10/12/2024 2212 Date/Time Order Dose Route Action 10/12/2024 1709 EDT lactated Ringer's infusion 1,000 mL 1,000 mL Intravenous New Bag 10/12/2024 1710 EDT acetaminophen (Tylenol) tablet 1,000 mg 1,000 mg Oral Given 10/12/2024 1711 EDT ondansetron (Zofran) injection 4 mg 4 mg Intravenous Given 10/12/2024 1712 EDT ampicillin-sulbactam (Unasyn) 3 g in sodium chloride 0.9% 100 mL IVPB (vial adapter required) 3 g Intravenous New Bag 10/12/2024 1739 EDT iohexol (OMNIPaque) 300 MG/ML injection 100 mL 100 mL Intravenous Given 10/12/2024 1816 EDT ampicillin-sulbactam (Unasyn) 3 g in sodium chloride 0.9% 100 mL IVPB (vial adapter required) 0 g Intravenous Stopped 10/12/2024 1836 EDT cefepime (Maxipime) 2 g in sodium chloride 0.9% 100 mL IVPB (vial adapter required) 2 g Intravenous New Bag 10/12/2024 1845 EDT magnesium sulfate IVPB 2 g 2 g Intravenous New Bag 10/12/2024 1848 EDT vancomycin (Vancocin) 2,500 mg in sodium chloride 0.9 % 500 mL IVPB 2,500 mg Intravenous Given 10/12/2024 2100 EDT dextrose 50 % solution 50 mL 50 mL Intravenous Given 10/12/2024 2153 EDT dextrose 50 % solution - Pyxis Override Pull -- Not Given 10/12/20242153 EDT cefepime (Maxipime) 2 g in sodium chloride 0.9% 100 mL IVPB (vial adapter required) 0 g Intravenous Stopped 10/12/2024 215 EDT magnesium sulfate IVPB 2 g 0 g Intravenous Stopped ED COURSE: ED Course as of 10/12/242232October 12, 2024 1539 EKG now - STAT (adult) Sinus tach [MR] 1639 BP: 107/68 [MR] 1639 Heart Rate: 116 [MR] 1639 Resp: 20 [MR] 1639 SpO2: 94 % [MR] 1639 Temp(!): 38.7 ??C (101.6 ??F) [MR] 1640 On my initial assessment, patient's blood pressure is soft, she is tachycardic, febrile, satting 94% on room air with normal respiratory effort. 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 She is on chemo. Here today with ONEAL, fever, weakness, abdominal pain LLQ and LUQ. Sister at bedside reports her abdomen is more distended than normal. On exam her abdomen is not significantly tender on palpation. She is tachycardic but heart and lung sounds are clear to auscultation bilaterally. RLE weakness on exam which from record review is not an acute problem for her.PERRLA, eom intact. No meningeal signs but meningitis definitely on differential with recent neurosu rgery + headache + fever. Her craniotomy incision sites have no erythema or drainage. No dehiscenceappreciated. [MR] 1652 Had an interactive discussion with ED pharmacist regarding abx coverage for patient with sepsis and hx of neurosurgery instrumentation with craniotomy on 08/31/24. Will give vancomycin, cefepime,and unasyn. [MR] 1726 Lactate: 1.2 WNL, reassuring [MR] 1740 BUN(!): 27 [MR] 1741 Creatinine: 0.99 [MR] 1741 Sodium(!): 131 [MR] 1741 Potassium: 3.9 [MR] 1741 Chloride(!): 93 [MR] 1741 CRP, Plasma(!): 90.1 elevated [MR] 1741 Procalcitonin(!): 0.69 elevated [MR] 1741 Magnesium(!): 1.2 Will replace [MR] 1759 WBC(!!): 0.84 Patient had 7.2 WBC 8 days ago, new neutropenia, will initiate neutropenic precautions [MR] 1804 XR Chest 1 View FINDINGS: Similar right upper lobe airspace opacities and background scarring. Redemonstrated right suprahilar nodes. Stable cardiac mediastinal contours. No pneumothorax or pleural effusion. No acute osseous abnormality. IMPRESSION: Similar right upper lobe airspace opacities and background scarring CRITICAL RESULT: No. [MR] 1804 Hemoglobin: 11.4 [MR] 1805 Hematocrit: 34.5 [MR] [address] and was not attached to monitors. When I walked into room she was in no acute distress. I reattached patient's monitors and HR was 170, BP 80/50s. EKG ordered and patient found to be in afib. Patient was NSR on arrival to ED. She previously had ablation for this. Second IV was obtained and patient's LR bolus began running again as it could not run with the abx. Patient moved to critical room. Cardiology consult placed and paged for arrhythmia management in setting of sepsis. [MR] 1833 ECG Adult Aflutter with variable Av block [MR] 1854 Had an interactive discussion with cards electronic prepress system operator, States to avoid rate control in patient and to NOT give IV metoprolol. By time resident could come to eval, she was in NSR with rate 95. Recommends to reach back out if needed but no cards eval at this time, [MR] 1907 CT Head wo IV Contrast FINDINGS: Prior left frontal craniotomy for resection of superior frontal mass. There is residual hyperdense components at the site of resection measuring 2.2 by 2.7 x 1.8 cm (CC by AP by TR) with surrounding subarachnoid hemorrhage. There is left frontal extra-axial hyperdense fluid collection measuring up to 8 mm. No significant midline shift or mass effect. No territorial infarcts. Similar configurationof the ventricles. No hydrocephalus. Basal cisterns are patent. Left maxillary opacification. Mastoid air cells are clear. IMPRESSION: Prior left frontal craniotomy for resection of superior frontal mass. There is residual hyperdense components at the site of resection measuring 2.2 by 2.7 x 1.8 cm (CC by AP by TR) with surrounding subarachnoid hemorrhage. Left frontal extra-axial hyperdense fluid collection measuring up to 8 8 mmlikely a a subdural hemorrhage. CRITICAL RESULT: No. [MR] 1916 Consult to neurosurgery placed and paged [MR] 1929 After interactive discussion with neurosurgery, patient will be evaluated by them. [MR] 193 After interactive discussion with hospital medicine, patient accepted to their service. HARRISON Krishna PA-C pending admission to hospital medicine. [MR] 2057 POCT Glucose(!): 56 Given D50 [BW] 2133 POCT Glucose(!): 189 After D50 [BW] ED Course User Index [BW] Joya Krishna PA [MR] Callie Samuel PA Clinical Impressions as of 10/12/243 Febrile neutropenia (CMS/HCC) Hypomagnesemia Ultimately, this patient Was admitted (Admission) The primary encounter diagnosis was Febrile neutropenia (CMS/HCC). A diagnosis of Hypomagnesemia was also pertinent to this visit.. Patient believed to require admission for the listed diagnoses. The Internal Medicine service was consulted for admission and was agreeable to admit to Acute Floor (Med/Surg). ED Prescriptions None Disposition Admit Admitting/Attending Physician: BERTO STANFORD [[id number]] Provider Care Team: WENCESLAO 2 [185] Are they the primary team?: Yes [1] - RACHEL Perez Cosigned by Shekhar Ledezma MD at 10/13/2024 8:37 PM EDT Associated attestation - Shekhar Ledezma MD - 10/13/2024 8:37 PM EDT I attest to being involved in providing substantive part of the medical decision making in patient care. documented in this encounter Plan of Treatment Upcoming Encounters Date Type Department Care Team (Late st Contact Info) Description 11/29/2024 10:30 AM EDT Clinical Support [facility] [address] [facility] [place] [address] 11/29/2024 11:00 AM EDT Office Visit [facility] [address] [facility] [place] [address] Satnam Colvin MD [address] [facility] [address] [place] [address] 11/29/2024 12:30 PM EDT Appointment [facility] [address] [place] [address] 11/30/2024 1:30 PM EDT Appointment [facility] [address] [place] [phone] 12/01/2024 2:00 PM EDT Appointment [facility] [address] [place] [phone] 12/06/2024 11:40 AM EDT Appointment [facility] Radiation [address] [place] [phone] Haven Blum, UPHOLSTERY DEPARTMENT SUPERVISOR [address] [place] [phone] 01/19/2025 9:30 AM EDT Appointment [facility] Radiology [address], [address] [place] [phone] 01/19/2025 10:45 AM EDT Office Visit [place] [facility] [address], [address] [place] [address] Abhilash Bangura MD [address] [place] [address] 03/08/2025 1:00 PM EDT Office Visit [facility] [place] [facility] [address] [place] [phone] Teresita Oconnell MD [address] [place] [phone] documented as of this encounter Procedures Procedure Name Priority Date/Time Associated Diagnosis Comments POCT GLUCOSE METER UNSOLICITED RESULTS Routine 10/18/2024 8:29 AM EDT MORPHOLOGY Routine 10/18/2024 3:46 AM EDT MANUAL DIFFERENTIAL Routine 10/18/2024 3 :46 AM EDT CBC WITH AUTO DIFFERENTIAL Routine 10/18/2024 3:46 AM EDT POCT GLUCOSE METER UNSOLICITED RESULTS Routine 10/18/2024 3:35 AM EDT POCT GLUCOSE METER UNSOLICITED RESULTS Routine 10/17/2024 8:20 PM EDT POCT GLUCOSE METER UNSOLICITED RESULTS Routine 10/17/2024 6:01 PM EDT POCT GLUCOSE METER UNSOLICITED RESULTS Routine 10/17/2024 11:57 AM EDT POCT GLUCOSE METER UNSOLICITED RESULTS Routine 10/17/2024 8:18 AM EDT MORPHOLOGY Routine 10/17/2024 3:38 AM EDT MANUAL DIFFERENTIAL Routine 10/17/2024 3 :38 AM EDT CBC WITH AUTO DIFFERENTIAL Routine 10/17/2024 3:38 AM EDT POCT GLUCOSE METER UNSOLICITED RESULTS Routine 10/17/2024 3:27 AM EDT POCT GLUCOSE METER UNSOLICITED RESULTS Routine 10/16/2024 8:09 PM EDT POCT GLUCOSE METER UNSOLICITED RESULTS Routine 10/16/2024 5:46 PM EDT POCT GLUCOSE METER UNSOLICITED RESULTS Routine 10/16/2024 12:13 PM EDT POCT GLUCOSE METER UNSOLICITED RESULTS Routine 10/16/2024 8:31 AM EDT CBC WITH AUTO DIFFERENTIAL Routine 10/16/2024 5:49 AM EDT VANCOMYCIN, TROUGH, PLASMA Timed 10/16/2024 5:49 AM EDT COMPREHENSIVE METABOLIC PANEL, PLASMA Routine 10/16/2024 5:49 AM EDT POCT GLUCOSE METER UNSOLICITED RESULTS Routine 10/16/2024 3:37 AM EDT ECG ADULT STAT 10/15/2024 10:43 PM EDT POCT GLUCOSE METER UNSOLICITED RESULTS Routine 10/15/2024 8:48 PM EDT POCT GLUCOSE METER UNSOLICITED RESULTS Routine 10/15/2024 5:43 PM EDT INSERT PERIPHERAL IV Routine 10/15/2024 2:18 PM EDT POCT GLUCOSE METER UNSOLICITED RESULTS Routine 10/15/2024 12:20 PM EDT POCT GLUCOSE METER UNSOLICITED RESULTS Routine 10/15/2024 7:22 AM EDT CBC WITH AUTO DIFFERENTIAL Routine 10/15/2024 4:19 AM EDT COMPREHENSIVE METABOLIC PANEL, PLASMA Routine 10/15/2024 4:19 AM EDT ECG ADULT STAT 10/14/2024 8:37 PM EDT POCT GLUCOSE METER UNSOLICITED RESULTS Routine 10/14/2024 8:20 PM EDT POCT GLUCOSE METER UNSOLICITED RESULTS Routine 10/14/2024 5:49 PM EDT VANCOMYCIN, PEAK, PLASMA Timed 10/14/2024 2:33 PM EDT PROTHROMBIN TIME(PT) / INR STAT 10/14/2024 11:06 AM EDT INSERT PERIPHERAL IV Routine 10/14/2024 10:55 AM EDT IR LUMBAR PUNCTURE Routine 10/14/2024 10 :29 AM EDT CSF NOTIFICATION ORDER - PERFORMABLE Routine 10/14/2024 10:24 AM EDT CSF NOTIFICATION ORDER - PERFORMABLE Routine 10/14/2024 10:24 AM EDT CSF PANEL Routine 10/14/2024 10:24 AM EDT CSF PANEL Routine 10/14/2024 10:24 AM EDT CSF CELL COUNT W/ MANUAL DIFFERENTIAL Routine 10/14/2024 10:24 AM EDT FUNGAL CULTURE, CEREBROSPINAL FLUID (CSF) AND EMILY INK Routine 10/14/2024 10:24 AM EDT LACTATE DEHYDROGENASE TOTAL, BODY FLUID (SO) Routine 10/14/2024 10:24 AM EDT MENINGITIS/ENCEPHALITIS PANEL BY PCR Routine 10/14/2024 10:24 AM EDT MADINA ALMANZA DNA BY PCR(CSF) Routine 10/14/2024 10:24 AM EDT CRYPTOCOCCAL ANTIGEN, CSF Routine 10/14/2024 10:24 AM EDT HUYEN VIRUS (JCV) QUANTITATIVE REAL-TIME PCR (SO) Routine 10/14/2024 10:24 AM EDT CEREBROSPINAL FLUID (CSF) CULTURE AND GRAM STAIN Routine 10/14/2024 10:24 AM EDT CSF CELL COUNT W/O DIFFERENTIAL Routine 10/14/2024 10:24 AM EDT WEST NILE VIRUS ANTIBODIES, IGG AND IGM BY SONI, CSF (SO) Routine 10/14/2024 10:24 AM EDT TOTAL PROTEIN, CSF Routine 10/14/2024 10 :24 AM EDT GLUCOSE, CSF Routine 10/14/2024 10:24 AM EDT NON-GYNECOLOGIC CYTOLOGY Routine 10/14/2024 10:24 AM EDT POCT GLUCOSE METER UNSOLICITED RESULTS Routine 10/14/2024 9:37 AM EDT CBC WITH AUTO DIFFERENTIAL Routine 10/14/2024 5:46 AM EDT VANCOMYCIN, TROUGH, PLASMA Timed 10/14/2024 5:46 AM EDT BASIC METABOLIC PANEL, PLASMA Routine 10/14/2024 5:46 AM EDT POCT GLUCOSE METER UNSOLICITED RESULTS Routine 10/13/2024 8:[address] CHEST W IV CONTRAST Routine 8:26 PM EDT POCT GLUCOSE METER UNSOLICITED RESULTS Routine 10/13/2024 5:55 PM EDT POCT GLUCOSE METER UNSOLICITED RESULTS Routine 10/13/2024 11:26 AM EDT POCT GLUCOSE METER UNSOLICITED RESULTS Routine 10/13/2024 7:04 AM EDT MR HEAD W AND WO IV CONTRAST Routine 10/13/2024 6:48 AM EDT STREPTOCOCCUS PNEUMONIAE AND LEGIONELLA URINARY ANTIGEN Routine 10/13/2024 2:33 AM EDT URINALYSIS WITH REFLEX MICROSCOPIC AND CULTURE STAT 10/13/2024 2:33 AM EDT URINE MEEK PANEL STAT 10/13/2024 2:33 AM EDT SODIUM, URINE, RANDOM Routine 10/13/2024 2:33 AM EDT OSMOLALITY, URINE Routine 10/13/2024 2:3 3 AM EDT URINALYSIS WITH REFLEX MICROSCOPIC STAT 10/13/2024 2:33 AM EDT CBC WITH AUTO DIFFERENTIAL Routine 10/13/2024 1:26 AM EDT PHOSPHORUS, PLASMA Routine 10/13/2024 1: 26 AM EDT MAGNESIUM, PLASMA Routine 10/13/2024 1:2 6 AM EDT COMPREHENSIVE METABOLIC PANEL, PLASMA Routine 10/13/2024 1:26 AM EDT METHICILLIN RESISTANT STAPHYLOCOCCUS AUREUS (MRSA) BY PCR Routine 10/13/2024 12:47 AM EDT POCT GLUCOSE METER UNSOLICITED RESULTS Routine 10/12/2024 11:44 PM EDT ANTI XA LEVEL LOW MOLECULAR WEIGHT HEPARIN Routine 10/12/2024 10:37 PM EDT SPUTUM INDUCTION STAT 10/12/2024 10:1 7 PM EDT POCT GLUCOSE METER UNSOLICITED RESULTS Routine 10/12/2024 9:21 PM EDT POCT GLUCOSE METER UNSOLICITED RESULTS Routine 10/12/2024 8:49 PM EDT ECG ADULT STAT 10/12/2024 6:[address] ABDOMEN PELVIS W IV CONTRAST STAT 10/12/2024 5:[address] HEAD WO IV CONTRAST STAT 5:48 PM EDT XR CHEST 1 VIEW STAT 10/12/2024 5:41 PM EDT NASOPHARYNGEAL RESPIRATORY PANEL STAT 10/12/2024 4:54 PM EDT MORPHOLOGY STAT 10/12/2024 4:51 PM EDT LACTATE, VENOUS STAT 10/12/2024 4:51 PM EDT MANUAL DIFFERENTIAL STAT 10/12/2024 4 :51 PM EDT PROCALCITONIN, PLASMA STAT 10/12/2024 4:51 PM EDT BLOOD CULTURE (AEROBIC/ANAEROBIC SET) STAT 10/12/2024 4:51 PM EDT BLOOD CULTURE (AEROBIC/ANAEROBIC SET) STAT 10/12/2024 4:51 PM EDT CBC WITH AUTO DIFFERENTIAL STAT 10/12/2024 4:51 PM EDT C-REACTIVE PROTEIN, PLASMA STAT 10/12/2024 4:51 PM EDT PHOSPHORUS, PLASMA STAT 10/12/2024 4: 51 PM EDT OSMOLALITY, SERUM Add-On 10/12/2024 4:5 1 PM EDT MAGNESIUM, PLASMA STAT 10/12/2024 4:5 1 PM EDT COMPREHENSIVE METABOLIC PANEL, PLASMA STAT 10/12/2024 4:51 PM EDT ECG ADULT STAT 10/12/2024 3:39 PM EDT documented in this encounter Results * (ABNORMAL) POCT glucose meter (10/18/2024 8:29 AM EDT) [facility] POCT Glucose 251(H) 74 - 99 mg/dL 10/18/2024 8:31 AM EDT [facility] Comment:Accuracy of a glucos e result obtained from a capillary whole blood specimen relies upon adequate, non-compromised capillary blood flow. If the capillary glucose result is not consistent with the patient's clinical signs and symptoms, glucose testing should be repeated with either an arterial or venous sample on the glucometer or sent to the main labortory for testing. Comment 10/18/2024 8:31 AM EDT [facility] Electrocardiographic Technician ID Isabelle Liu 10/18/2024 8:31 AM EDT [facility] Device ID [id number] 10/18/2024 8:31 AM EDT [facility] Specimen Type POC Capillary 10/18/2024 8:31 AM EDT [facility] Blood Capillary blood specimen / Unknown 10/18/2024 8:29 AM EDT 10/18/2024 8:31 AM EDT us Unknown Claudia Cali MD LAB POINT OF C ARE TEST DOCKED DEVICE UNSOLICITED RESULTS Final Result Performing Organization Address [facility] Co de Phone Number [facility] [address] [place] [address] * Morphology (10/18/2024 3:46 AM EDT) Blood Venous blood specimen / Unknown Venipuncture / Unknown 10/18/2024 3:46 AM EDT 10/18/2024 3:53 AM EDT us Unknown Claudia Cali MD LAB BLOOD ORDERABLES F inal Result Performing Organization Address [facility] de Phone Number [facility] [address] [place] [address] * (ABNORMAL) Manual Differential (10/18/2024 3:46 AM EDT) Blasts % 0 % LAB HEMATOLOGY METHOD 10/18/2024 5:06 AM EDT [facility] Promyelocytes % 2 % LAB HEMATOLOGY METHOD 10/18/2024 5:06 AM EDT [facility] Myelocytes % 2 % LAB HEMATOLOGY METHOD 10/18/2024 5:06 AM EDT [facility] Metamyelocytes % 5 % LAB HEMATOLOGY METHOD 10/18/2024 5:06 AM EDT [facility] Neutrophils % 87 % LAB HEMATOLOGY METHOD 10/18/2024 5:06 AM EDT [facility] Lymphocytes % 4 % LAB HEMATOLOGY METHOD 10/18/2024 5:06 AM EDT [facility] Reactive Lymphocytes % 0 % LAB HEMATOLOGY METHOD 10/18/2024 5:06 AM EDT [facility] Monocytes % 0 % LAB HEMATOLOGY METHOD 10/18/2024 5:06 AM EDT [facility] Eosinophils % 0 % LAB HEMATOLOGY METHOD 10/18/2024 5:06 AM EDT [facility] Basophils % 0 % LAB HEMATOLOGY METHOD 10/18/2024 5:06 AM EDT [facility] Blasts Absolute LAB HEMATOLOGY METHOD 10/18/2024 5:06 AM EDT [facility] Promyelocytes Absolute 0.08 10*3/uL LAB HEMATOLOGY METHOD 10/18/2024 5:06 AM EDT [facility] Myelocytes Absolute 0.08 10*3/uL LAB HEMATOLOGY METHOD 10/18/2024 5:06 AM EDT [facility] Metamyelocytes Absolute 0.21 10*3/uL LAB HEMATOLOGY METHOD 10/18/2024 5:06 AM EDT [facility] Neutrophils Absolute 3.58 1.60 - 6.10 10*3/uL LAB HEMATOLOGY METHOD 10/18/2024 5:06 AM EDT [facility] Lymphocytes Absolute 0.16(L) 1.20 - 3.90 10*3/uL LAB HEMATOLOGY METHOD 10/18/2024 5:06 AM EDT [facility] Reactive Lymphocytes Absolute LAB HEMATOLOGY METHOD 10/18/2024 5:06 AM EDT [facility] Monocytes Absolute LAB HEMATOLOGY METHOD 10/18/2024 5:06 AM EDT [facility] Eosinophils Absolute LAB HEMATOLOGY METHOD 10/18/2024 5:06 AM EDT [facility] Basophils Absolute LAB HEMATOLOGY METHOD 10/18/2024 5:06 AM EDT [facility] Blood Venous blood specimen / Unknown Venipuncture / Unknown 10/18/2024 3:46 AM EDT 10/18/2024 3:53 AM EDT us Unknown Claudia Cali MD LAB BLOOD ORDERABLES F inal Result [facility] [address] [place] [address] * (ABNORMAL) CBC and Differential (10/18/2024 3:46 AM EDT) WBC Count 4.12 3.70 - 10.30 10*3/uL LAB HEMATOLOGY METHOD 10/18/2024 5:06 AM EDT [facility] RBC Count 3.21(L) 3.90 - 5.20 10*6/uL LAB HEMATOLOGY METHOD 10/18/2024 5:06 AM EDT [facility] HGB 9.6(L) 11.2 - 15.7 g/dL LAB HEMATOLOGY METHOD 10/18/2024 5:06 AM EDT [facility] HCT 29.9(L) 34.0 - 45.0 % LAB HEMATOLOGY METHOD 10/18/2024 5:06 AM EDT [facility] Platelet Count 54(L) 155 - 369 10*3/uL LAB HEMATOLOGY METHOD 10/18/2024 5:06 AM EDT [facility] MCV 93 79 - 98 fL LAB HEMATOLOGY METHOD 10/18/2024 5:06 AM EDT [facility] MCH 29.9 26.0 - 32.0 pg LAB HEMATOLOGY METHOD 10/18/2024 5:06 AM EDT [facility] MCHC 32.1 30.7 - 35.5 g/dL LAB HEMATOLOGY METHOD 10/18/2024 5:06 AM EDT [facility] RDW 15.0(H) 11.5 - 14.5 % LAB HEMATOLOGY METHOD 10/18/2024 5:06 AM EDT [facility] MPV 9.8 8.8 - 12.5 fL LAB HEMATOLOGY METHOD 10/18/2024 5:06 AM EDT [facility] nRBC 1.9(H) <=0.0 per 100 WBCs LAB HEMATOLOGY METHOD 10/18/2024 5:06 AM EDT [facility] Differential Type Manual LAB HEMATOLOGY METHOD 10/18/2024 5:06 AM EDT [facility] Blood Venous blood specimen / Unknown Venipuncture / Unknown 10/18/2024 3:46 AM EDT 10/18/2024 3:53 AM EDT Narrative [facility] - 10/18/2024 5:06 AM EDT Therapeutic decision making should be based on absolute values, rather than percentages. The previously reported component Neutrophils % is no longer being reported.The previously reported component Lymphocytes % is no longer being reported.The previously reported component Monocytes % is no longer being reported.The previously reported component Eosinophils % is no longer being reported.The previously reported component Basophils % is no longer being reported.The previously reported component Immature Granulocytes % is no longer being reported.The previously reported component Absolute Neutrophils is no longer being reported.The previously reported component Absolute Lymphocytes is no longer being reported.The previously reported component Absolute Monocytes is no longer being reported.The previously reported component Absolute Eosinophils is no longer being reported.The previously reported component Absolute Basophils is no longer being reported.The previously reported component Absolute Immature Granulocytes is no longer being reported. us Unknown Claudia Cali MD LAB BLOOD ORDERABLES F inal Result Performing Organization Address City/[facility]/ZIP Co de Phone Number [facility] [address] [place] [address] * (ABNORMAL) POCT glucose meter (10/18/2024 3:35 AM EDT) POCT Glucose 255(H) 74 - 99 mg/dL 10/18/2024 3:37 AM EDT [facility] Comment:Accuracy of a glucos e result obtained from a capillary whole blood specimen relies upon adequate, non-compromised capillary blood flow. If the capillary glucose result is not consistent with the patient's clinical signs and symptoms, glucose testing should be repeated with either an arterial or venous sample on the glucometer or sent to the main labortory for testing. Comment 10/18/2024 3:37 AM EDT [facility] Electrocardiographic Technician ID JoséGiorgio 3:37 AM EDT [facility] Device ID [id number] 10/18/2024 3:37 AM EDT [facility] Specimen Type POC Venous 10/18/2024 3:37 AM EDT [facility] Blood Venous blood specimen / Unknown 10/18/2024 3:35 AM EDT 10/18/2024 3:37 AM EDT us Unknown Claudia Cali MD LAB POINT OF C ARE TEST DOCKED DEVICE UNSOLICITED RESULTS Final Result Performing Organization Address City/[facility]/ZIP Co de Phone Number [facility] [address] [place] [address] * (ABNORMAL) POCT glucose meter (10/17/2024 8:20 PM EDT) POCT Glucose 326(H) 74 - 99 mg/dL 10/17/2024 8:22 PM EDT [facility] Comment:Accuracy of a glucos e result obtained from a capillary whole blood specimen relies upon adequate, non-compromised capillary blood flow. If the capillary glucose result is not consistent with the patient's clinical signs and symptoms, glucose testing should be repeated with either an arterial or venous sample on the glucometer or sent to the main labortory for testing. Comment 10/17/2024 8:22 PM EDT [facility] Electrocardiographic Technician ID Joya Galicia 025 8:22 PM EDT [facility] Device ID [id number] 10/17/2024 8:22 PM EDT [facility] Specimen Type POC Capillary 10/17/2024 8:22 PM EDT [facility] Blood Capillary blood specimen / Unknown 10/17/2024 8:20 PM EDT 10/17/2024 8:22 PM EDT us Unknown Claudia Cali MD LAB POINT OF C ARE TEST DOCKED DEVICE UNSOLICITED RESULTS Final Result Performing Organization Address City/State/[facility] Co de Phone Number [facility] [address] [place] [address] * (ABNORMAL) POCT glucose meter (10/17/2024 6:01 PM EDT) [facility] POCT Glucose 244(H) 74 - 99 mg/dL 10/17/2024 6:03 PM EDT [facility] Comment:Accuracy of a glucos e result obtained from a capillary whole blood specimen relies upon adequate, non-compromised capillary blood flow. If the capillary glucose result is not consistent with the patient's clinical signs and symptoms, glucose testing should be repeated with either an arterial or venous sample on the glucometer or sent to the main labortory for testing. Comment 10/17/2024 6:03 PM EDT [facility] Electrocardiographic Technician ID Abril Duong 10/17/2024 6:03 PM EDT [facility] Device ID [id number] 10/17/2024 6:03 PM EDT [facility] Specimen Type POC Capillary 10/17/2024 6:03 PM EDT [facility] Blood Capillary blood specimen / Unknown 10/17/2024 6:01 PM EDT 10/17/2024 6:03 PM EDT us Unknown Claudia Cali MD LAB POINT OF ARE TEST DOCKED DEVICE UNSOLICITED RESULTS Final Result Performing Organization Address City/[facility] Co de Phone Number [facility] [address] [place] [address] * (ABNORMAL) POCT glucose meter (10/17/2024 11:57 AM EDT) POCT Glucose 335(H) 74 - 99 mg/dL 10/17/2024 11:58 AM EDT [facility] Comment:Accuracy of a glucos e result obtained from a capillary whole blood specimen relies upon adequate, non-compromised capillary blood flow. If the capillary glucose result is not consistent with the patient's clinical signs and symptoms, glucose testing should be repeated with either an arterial or venous sample on the glucometer or sent to the main labortory for testing. Comment 10/17/2024 11:58 AM EDT [facility] Electrocardiographic Technician ID Kyle Paulson Abril 10/17/2024 11:58 AM EDT [facility] Device ID [id number] 10/17/2024 11:58 AM EDT [facility] Specimen Type POC Capillary 10/17/2024 11:58 AM EDT [facility] Blood Capillary blood specimen / Unknown 10/17/2024 11:57 AM EDT 10/17/2024 11:58 AM EDT us Unknown Claudia Cali MD LAB POINT OF C ARE TEST DOCKED DEVICE UNSOLICITED RESULTS Final Result Performing Organization Address City/[facility] Co de Phone Number [facility] [address] [place] [address] * (ABNORMAL) POCT glucose meter (10/17/2024 8:18 AM EDT) POCT Glucose 215(H) 74 - 99 mg/dL 10/17/2024 8:19 AM EDT [facility] Comment:Accuracy of a glucos e result obtained from a capillary whole blood specimen relies upon adequate, non-compromised capillary blood flow. If the capillary glucose result is not consistent with the patient's clinical signs and symptoms, glucose testing should be repeated with either an arterial or venous sample on the glucometer or sent to the main labortory for testing. Comment 10/17/2024 8:19 AM EDT [facility] Electrocardiographic Technician ID Abril Duong 10/17/2024 8:19 AM EDT [facility] Device ID [id number] 10/17/2024 8:19 AM EDT [facility] Specimen Type POC Capillary 10/17/2024 8:19 AM EDT [facility] Blood Capillary blood specimen / Unknown 10/17/2024 8:18 AM EDT 10/17/2024 8:19 AM EDT us Unknown Claudia Cali MD LAB POINT OF C ARE TEST DOCKED DEVICE UNSOLICITED RESULTS Final Result Performing Organization Address City/[facility]/ZIP Co de Phone Number [facility] [address] [place] [address] * Morphology (10/17/2024 3:38 AM EDT) Elliptocytes/O valocytes Present LAB HEMATOLOGY METHOD 10/17/2024 5:33 AM EDT [facility] RBC Morphology Slide Reviewed LAB HEMATOLOGY METHOD 10/17/2024 5:33 AM EDT [facility] Platelet Estimate Platelet smear estimate consistent with automated count LAB HEMATOLOGY METHOD 10/17/2024 5:33 AM EDT [facility] Blood Venous blood specimen / Unknown Venipuncture / Unknown 10/17/2024 3:38 AM EDT 10/17/2024 4:02 AM EDT us Unknown Claudia Cali MD LAB BLOOD ORDERABLES F inal Result [facility] [address] [place] [address] * (ABNORMAL) Manual Differential (10/17/2024 3:38 AM EDT) Blasts % 0 % LAB HEMATOLOGY METHOD 10/17/2024 5:33 AM EDT [facility] Promyelocytes % 0 % LAB HEMATOLOGY METHOD 10/17/2024 5:33 AM EDT [facility] Myelocytes % 3 % LAB HEMATOLOGY METHOD 10/17/2024 5:33 AM EDT [facility] Metamyelocytes % 2 % LAB HEMATOLOGY METHOD 10/17/2024 5:33 AM EDT [facility] Neutrophils % 66 % LAB HEMATOLOGY METHOD 10/17/2024 5:33 AM EDT [facility] Lymphocytes % 26 % LAB HEMATOLOGY METHOD 10/17/2024 5:33 AM EDT [facility] Reactive Lymphocytes % 1 % LAB HEMATOLOGY METHOD 10/17/2024 5:33 AM EDT [facility] Monocytes % 1 % LAB HEMATOLOGY METHOD 10/17/2024 5:33 AM EDT [facility] Eosinophils % 1 % LAB HEMATOLOGY METHOD 10/17/2024 5:33 AM EDT [facility] Basophils % 0 % LAB HEMATOLOGY METHOD 10/17/2024 5:33 AM EDT [facility] Blasts Absolute 0.00 10*3/UL LAB HEMATOLOGY METHOD 10/17/2024 5:33 AM EDT [facility] Promyelocytes Absolute 0.00 10*3/uL LAB HEMATOLOGY METHOD 10/17/2024 5:33 AM EDT [facility] Myelocytes Absolute 0.05 10*3/uL LAB HEMATOLOGY METHOD 10/17/2024 5:33 AM EDT [facility] Metamyelocytes Absolute 0.03 10*3/uL LAB HEMATOLOGY METHOD 10/17/2024 5:33 AM EDT [facility] Neutrophils Absolute 1.04(L) 1.60 - 6.10 10*3/uL LAB HEMATOLOGY METHOD 10/17/2024 5:33 AM EDT [facility] Lymphocytes Absolute 0.41(L) 1.20 - 3.90 10*3/uL LAB HEMATOLOGY METHOD 10/17/2024 5:33 AM EDT [facility] Reactive Lymphocytes Absolute 0.02 10*3/uL LAB HEMATOLOGY METHOD 10/17/2024 5:33 AM EDT [facility] Monocytes Absolute 0.02(L) 0.30 - 0.90 10*3/uL LAB HEMATOLOGY METHOD 10/17/2024 5:33 AM EDT [facility] Eosinophils Absolute 0.02 0.00 - 0.50 10*3/uL LAB HEMATOLOGY METHOD 10/17/2024 5:33 AM EDT [facility] Basophils Absolute 0.00 0.00 - 0.10 10*3/uL LAB HEMATOLOGY METHOD 10/17/2024 5:33 AM EDT [facility] Blood Venous blood specimen / Unknown Venipuncture / Unknown 10/17/2024 3:38 AM EDT 10/17/2024 4:02 AM EDT us Unknown Claudia Cali MD LAB BLOOD ORDERABLES F inal Result [facility] [address] [place] [address] * (ABNORMAL) CBC and Differential (10/17/2024 3:38 AM EDT) WBC Count 1.58(L) 3.70 - 10.30 10*3/uL LAB HEMATOLOGY METHOD 10/17/2024 5:33 AM EDT [facility] RBC Count 2.73(L) 3.90 - 5.20 10*6/uL LAB HEMATOLOGY METHOD 10/17/2024 5:33 AM EDT [facility] HGB 8.3(L) 11.2 - 15.7 g/dL LAB HEMATOLOGY METHOD 10/17/2024 5:33 AM EDT [facility] HCT 25.8(L) 34.0 - 45.0 % LAB HEMATOLOGY METHOD 10/17/2024 5:33 AM EDT [facility] Platelet Count 42(L) 155 - 369 10*3/uL LAB HEMATOLOGY METHOD 10/17/2024 5:33 AM EDT [facility] MCV 95 79 - 98 fL LAB HEMATOLOGY METHOD 10/17/2024 5:33 AM EDT [facility] MCH 30.4 26.0 - 32.0 pg LAB HEMATOLOGY METHOD 10/17/2024 5:33 AM EDT [facility] MCHC 32.2 30.7 - 35.5 g/dL LAB HEMATOLOGY METHOD 10/17/2024 5:33 AM EDT [facility] RDW 15.0(H) 11.5 - 14.5 % LAB HEMATOLOGY METHOD 10/17/2024 5:33 AM EDT [facility] MPV 9.9 8.8 - 12.5 fL LAB HEMATOLOGY METHOD 10/17/2024 5:33 AM EDT [facility] nRBC 3.2(H) <=0.0 per 100 WBCs LAB HEMATOLOGY METHOD 10/17/2024 5:33 AM EDT [facility] Differential Type Manual LAB HEMATOLOGY METHOD 10/17/2024 5:33 AM EDT [facility] Blood Venous blood specimen / Unknown Venipuncture / Unknown 10/17/2024 3:38 AM EDT 10/17/2024 4:02 AM EDT Narrative [facility] - 10/17/2024 5:33 AM EDT Therapeutic decision making should be based on absolute values, rather than percentages. The previously reported component Neutrophils % is no longer being reported.The previously reported component Lymphocytes % is no longer being reported.The previously reported component Monocytes % is no longer being reported.The previously reported component Eosinophils % is no longer being reported.The previously reported component Basophils % is no longer being reported.The previously reported component Immature Granulocytes % is no longer being reported.The previously reported component Absolute Neutrophils is no longer being reported.The previously reported component Absolute Lymphocytes is no longer being reported.The previously reported component Absolute Monocytes is no longer being reported.The previously reported component Absolute Eosinophils is no longer being reported.The previously reported component Absolute Basophils is no longer being reported.The previously reported component Absolute Immature Granulocytes is no longer being reported. us Unknown Claudia Cali MD LAB BLOOD ORDERABLES F inal Result [facility] [address] [place] [address] * (ABNORMAL) POCT glucose meter (10/17/2024 3:27 AM EDT) [facility] POCT Glucose 221(H) 74 - 99 mg/dL 10/17/2024 3:30 AM EDT [facility] Comment:Accuracy of a glucos e result obtained from a capillary whole blood specimen relies upon adequate, non-compromised capillary blood flow. If the capillary glucose result is not consistent with the patient's clinical signs and symptoms, glucose testing should be repeated with either an arterial or venous sample on the glucometer or sent to the main labortory for testing. Comment 10/17/2024 3:30 AM EDT [facility] Electrocardiographic Technician Ramona Reynoso 10/17/2024 3:30 AM EDT [facility] Device ID [id number] 10/17/2024 3:30 AM EDT [facility] Specimen Type POC Capillary 10/17/2024 3:30 AM EDT [facility] Blood Capillary blood specimen / Unknown 10/17/2024 3:27 AM EDT 10/17/2024 3:30 AM EDT us Unknown Claudia Cali MD LAB POINT OF C ARE TEST DOCKED DEVICE UNSOLICITED RESULTS Final Result Performing Organization Address City/[facility] Co de Phone Number [facility] [address] [place] [address] * (ABNORMAL) POCT glucose meter (10/16/2024 8:09 PM EDT) [facility] POCT Glucose 342(H) 74 - 99 mg/dL 10/16/2024 8:11 PM EDT [facility] Comment:Accuracy of a glucos e result obtained from a capillary whole blood specimen relies upon adequate, non-compromised capillary blood flow. If the capillary glucose result is not consistent with the patient's clinical signs and symptoms, glucose testing should be repeated with either an arterial or venous sample on the glucometer or sent to the main labortory for testing. Comment 10/16/2024 8:11 PM EDT [facility] Electrocardiographic Technician ID Herrera, Ramona 10/16/2024 8:11 PM EDT [facility] Device ID [id number] 10/16/2024 8:11 PM EDT [facility] Specimen Type POC Capillary 10/16/2024 8:11 PM EDT [facility] Blood Capillary blood specimen / Unknown 10/16/2024 8:09 PM EDT 10/16/2024 8:11 PM EDT us Unknown Claudia Cali MD LAB POINT OF C ARE TEST DOCKED DEVICE UNSOLICITED RESULTS Final Result Performing Organization Address City/[facility]/ZIP Co de Phone Number [facility] [address] [place] [address] * (ABNORMAL) POCT glucose meter (10/16/2024 5:46 PM EDT) POCT Glucose 278(H) 74 - 99 mg/dL 10/16/2024 5:48 PM EDT [facility] Comment:Accuracy of a glucos e result obtained from a capillary whole blood specimen relies upon adequate, non-compromised capillary blood flow. If the capillary glucose result is not consistent with the patient's clinical signs and symptoms, glucose testing should be repeated with either an arterial or venous sample on the glucometer or sent to the main labortory for testing. Comment 10/16/2024 5:48 PM EDT [facility] Electrocardiographic Technician ID Sue Hernandez 10/17/19 5:48 PM EDT [facility] Device ID [id number] 10/16/2024 5:48 PM EDT [facility] Specimen Type POC Capillary 10/16/2024 5:48 PM EDT [facility] Blood Capillary blood specimen / Unknown 10/16/2024 5:46 PM EDT 10/16/2024 5:48 PM EDT us Unknown Claudia Cali MD LAB POINT OF C ARE TEST DOCKED DEVICE UNSOLICITED RESULTS Final Result [facility] [address] [place] [address] * (ABNORMAL) POCT glucose meter (10/16/2024 12:13 PM EDT) [facility] POCT Glucose 342(H) 74 - 99 mg/dL 10/16/2024 12:16 PM EDT [facility] Comment:Accuracy of a glucos e result obtained from a capillary whole blood specimen relies upon adequate, non-compromised capillary blood flow. If the capillary glucose result is not consistent with the patient's clinical signs and symptoms, glucose testing should be repeated with either an arterial or venous sample on the glucometer or sent to the main labortory for testing. Comment 10/16/2024 12:16 PM EDT [facility] Electrocardiographic Technician ID Quan Chavez 10/16/2024 12:16 PM EDT [facility] Device ID [id number] 10/16/2024 12:16 PM EDT [facility] Specimen Type POC Capillary 10/16/2024 12:16 PM EDT [facility] Blood Capillary blood specimen / Unknown 10/16/2024 12:13 PM EDT 10/16/2024 12:16 PM EDT us Unknown Claudia Cali MD LAB POINT OF C ARE TEST DOCKED DEVICE UNSOLICITED RESULTS Final Result Performing Organization Address [facility] de Phone Number [facility] [address] [place] [address] * (ABNORMAL) POCT glucose meter (10/16/2024 8:31 AM EDT) [facility] POCT Glucose 219(H) 74 - 99 mg/dL 10/16/2024 8:32 AM EDT [facility] Comment:Accuracy of a glucos e result obtained from a capillary whole blood specimen relies upon adequate, non-compromised capillary blood flow. If the capillary glucose result is not consistent with the patient's clinical signs and symptoms, glucose testing should be repeated with either an arterial or venous sample on the glucometer or sent to the main labortory for testing. Comment 10/16/2024 8:32 AM EDT [facility] Electrocardiographic Technician ID Erendira Christianson 10/17/19 8:32 AM EDT [facility] Device ID [id number] 10/16/2024 8:32 AM EDT [facility] Specimen Type POC Capillary 10/16/2024 8:32 AM EDT [facility] Blood Capillary blood specimen / Unknown 10/16/2024 8:31 AM EDT 10/16/2024 8:32 AM EDT us Unknown Claudia Cali MD LAB POINT OF C ARE TEST DOCKED DEVICE UNSOLICITED RESULTS Final Result Performing Organization Address City/[facility] Co de Phone Number [facility] [address] [place] [address] * (ABNORMAL) Comprehensive Metabolic Panel, Plasma (10/16/2024 5:49 AM EDT) [facility] Glucose, Plasma 232(H) 74 - 99 mg/dL 10/16/2024 6:35 AM EDT [facility] BUN, Plasma 16 8 - 23 mg/dL 10/16/2024 6:35 AM EDT [facility] Creatinine, Plasma 0.54(L) 0.60 - 1.10 mg/dL 10/16/2024 6:35 AM EDT [facility] BUN/Creatinine Ratio 30 10/16/2024 6:35 AM EDT [facility] Sodium, Plasma 141 136 - 145 mmol/L 10/16/2024 6:35 AM EDT [facility] Potassium, Plasma 4.2 3.6 - 4.9 mmol/L 10/16/2024 6:35 AM EDT [facility] Chloride, Plasma 109(H) 97 - 107 mmol/L 10/16/2024 6:35 AM EDT [facility] CO2, Plasma 23 22 - 29 mmol/L 10/16/2024 6:35 AM EDT [facility] Anion Gap 9 6 - 16 mmol/L 10/16/2024 6:35 AM EDT [facility] Total Calcium, Plasma 8.2(L) 8.9 - 10.2 mg/dL 10/16/2024 6:35 AM EDT [facility] Total Protein 5.8(L) 6.3 - 7.9 g/dL 10/16/2024 6:35 AM EDT [facility] Albumin, Plasma 3.0(L) 3.5 - 5.2 g/dL 10/16/2024 6:35 AM EDT [facility] AST, Plasma 15 10 - 35 U/L 10/16/2024 6:35 AM EDT [facility] ALT, Plasma 29 10 - 35 U/L 10/16/2024 6:35 AM EDT [facility] Alkaline Phosphatase, Plasma 77 46 - 142 U/L 10/16/2024 6:35 AM EDT [facility] Total Bilirubin, Plasma 0.3 0.2 - 1.1 mg/dL 10/16/2024 6:35 AM EDT [facility] eGFRcr 103.6 mL/min/1.7 3m*2 10/16/2024 6:35 AM EDT [facility] Comment:Reported eGFRcr in m L/min/1.73m2 is based the CKD-EPI 2020 equation that does not use a race coefficient. Blood Venous blood specimen / Unknown Venipuncture / Unknown 10/16/2024 5:49 AM EDT 10/16/2024 6:04 AM EDT us Hyacinth Perkins MD LAB BLOOD ORDERABLES Final Res ult [facility] [address] [place] [address] * (ABNORMAL) CBC and Differential (10/16/2024 5:49 AM EDT) WBC Count 0.68(LL) 3.70 - 10.30 10*3/uL LAB HEMATOLOGY METHOD 10/16/2024 11:48 AM EDT [facility] RBC Count 2.74(L) 3.90 - 5.20 10*6/uL LAB HEMATOLOGY METHOD 10/16/2024 11:48 AM EDT [facility] HGB 8.4(L) 11.2 - 15.7 g/dL LAB HEMATOLOGY METHOD 10/16/2024 11:48 AM EDT [facility] HCT 26.1(L) 34.0 - 45.0 % LAB HEMATOLOGY METHOD 10/16/2024 11:48 AM EDT [facility] Platelet Count 38(L) 155 - 369 10*3/uL LAB HEMATOLOGY METHOD 10/16/2024 11:48 AM EDT [facility] MCV 95 79 - 98 fL LAB HEMATOLOGY METHOD 10/16/2024 11:48 AM EDT [facility] MCH 30.7 26.0 - 32.0 pg LAB HEMATOLOGY METHOD 10/16/2024 11:48 AM EDT [facility] MCHC 32.2 30.7 - 35.5 g/dL LAB HEMATOLOGY METHOD 10/16/2024 11:48 AM EDT [facility] RDW 15.0(H) 11.5 - 14.5 % LAB HEMATOLOGY METHOD 10/16/2024 11:48 AM EDT [facility] MPV 9.4 8.8 - 12.5 fL LAB HEMATOLOGY METHOD 10/16/2024 11:48 AM EDT [facility] nRBC 4.4(H) <=0.0 per 100 WBCs LAB HEMATOLOGY METHOD 10/16/2024 11:48 AM EDT [facility] Differential Type Automated LAB HEMATOLOGY METHOD 10/16/2024 11:48 AM EDT [facility] Neutrophils % LAB HEMATOLOGY METHOD 10/16/2024 11:48 AM EDT [facility] Lymphocytes % LAB HEMATOLOGY METHOD 10/16/2024 11:48 AM EDT [facility] Monocytes % LAB HEMATOLOGY METHOD 10/16/2024 11:48 AM EDT [facility] Eosinophils % LAB HEMATOLOGY METHOD 10/16/2024 11:48 AM EDT [facility] Basophils % LAB HEMATOLOGY METHOD 10/16/2024 11:48 AM EDT [facility] Immature Granulocytes % LAB HEMATOLOGY METHOD 10/16/2024 11:48 AM EDT [facility] Neutrophils Absolute LAB HEMATOLOGY METHOD 10/16/2024 11:48 AM EDT [facility] Lymphocytes Absolute LAB HEMATOLOGY METHOD 10/16/2024 11:48 AM EDT [facility] Monocytes Absolute LAB HEMATOLOGY METHOD 10/16/2024 11:48 AM EDT [facility] Eosinophils Absolute LAB HEMATOLOGY METHOD 10/16/2024 11:48 AM EDT [facility] Basophils Absolute LAB HEMATOLOGY METHOD 10/16/2024 11:48 AM EDT [facility] Immature Granulocytes Absolute LAB HEMATOLOGY METHOD 10/16/2024 11:48 AM EDT [facility] Blood Venous blood specimen / Unknown Venipuncture / Unknown 10/16/2024 5:49 AM EDT 10/16/2024 6:04 AM EDT Narrative [facility] - 10/16/2024 11:48 AM EDT Therapeutic decision making should be based on absolute values, rather than percentages. us Hyacinth Perkins MD LAB BLOOD ORDERABLES Final Res ult [facility] [address] [place] [address] * (ABNORMAL) Vancomycin, Trough, Plasma Please draw ~30 minutes prior to dose due at 0600 on 10/16/24. Please do NOT hold dose awaiting level to return. Consider obtaining level via peripheral stick. If peripheral stick is not feasible, please ensure that line ... (10/16/2024 5:49 AM EDT) Pathologist [facility] Vancomycin, Trough, Plasma 5.8(L) 10.0 - 20.0 ug/mL 10/16/2024 6:34 AM EDT [facility] Blood Venous blood specimen / Unknown Venipuncture / Unknown 10/16/2024 5:49 AM EDT 10/16/2024 6:04 AM EDT Narrative [facility] - 10/16/2024 6:34 AM EDT Therapeutic Trough level: 10-20ug/mL Supra-therapeutic Trough level: >20 ug/mL us Unknown Claudia Cali MD LAB BLOOD ORDERABLES F inal Result Performing Organization Address City/[facility] Co de Phone Number [facility] [address] [place] [address] * (ABNORMAL) POCT glucose meter (10/16/2024 3:37 AM EDT) [facility] POCT Glucose 233(H) 74 - 99 mg/dL 10/16/2024 3:39 AM EDT [facility] Comment:Accuracy of a glucos e result obtained from a capillary whole blood specimen relies upon adequate, non-compromised capillary blood flow. If the capillary glucose result is not consistent with the patient's clinical signs and symptoms, glucose testing should be repeated with either an arterial or venous sample on the glucometer or sent to the main labortory for testing. Comment 10/16/2024 3:39 AM EDT [facility] Electrocardiographic Technician ID Halle House 10/16/2024 3:39 AM EDT [facility]ALTH[facility]ARE LAB Device ID [id number] 10/16/2024 3:39 AM EDT [facility] Specimen Type POC Capillary 10/16/2024 3:39 AM EDT [facility] Blood Capillary blood specimen / Unknown 10/16/2024 3:37 AM EDT 10/16/2024 3:39 AM EDT us Unknown Claudia Cali MD LAB POINT OF C ARE TEST DOCKED DEVICE UNSOLICITED RESULTS Final Result Performing Organization Address City/[facility]/ZIP Co de Phone Number [facility] [address] [place] [address] * ECG Adult (10/15/2024 10:43 PM EDT) Pathologist [facility] EKG DIAGNOSIS CLASS Abnormal MUSE ECG Ventricular Rate 146 BPM MUSE ECG QRSD Interval 88 ms MUSE ECG QT Interval 288 ms MUSE ECG QTC Interval 448 ms MUSE ECG R Carmen 39 degrees MUSE ECG T Wave Carmen 68 degrees MUSE ECG Diagnosis Atrial fibrillation with rapid ventricular response MUSE ECG Diagnosis Nonspecific ST and T wave abnormality MUSE ECG Diagnosis Abnormal ECG MUSE ECG Diagnosis MUSE ECG Diagnosis Confirmed by Joey Perkins ([id number]) on 10/16/2024 3:31:49 PM MUSE ECG 10/15/2024 10:4 3 PM EDT 10/16/2024 3:31 PM EDT us Vesna Barcenas MD ECG ORDERABLES Final Result Performing Organization Address [facility] Co de Phone Number MUSE ECG * (ABNORMAL) POCT glucose meter (10/15/2024 8:48 PM EDT) [facility] POCT Glucose 312(H) 74 - 99 mg/dL 10/15/2024 8:49 PM EDT [facility] Comment:Accuracy of a glucos e result obtained from a capillary whole blood specimen relies upon adequate, non-compromised capillary blood flow. If the capillary glucose result is not consistent with the patient's clinical signs and symptoms, glucose testing should be repeated with either an arterial or venous sample on the glucometer or sent to the main labortory for testing. Comment 10/15/2024 8:49 PM EDT [facility] Electrocardiographic Technician ID Gladys Steele 8:49 PM EDT [facility] Device ID [id number] 10/15/2024 8:49 PM EDT [facility] Specimen Type POC Capillary 10/15/2024 8:49 PM EDT [facility] Blood Capillary blood specimen / Unknown 10/15/2024 8:48 PM EDT 10/15/2024 8:49 PM EDT us Unknown Claudia Cali MD LAB POINT OF C ARE TEST DOCKED DEVICE UNSOLICITED RESULTS Final Result [facility] [address] [place] [address] * (ABNORMAL) POCT glucose meter (10/15/2024 5:43 PM EDT) POCT Glucose 232(H) 74 - 99 mg/dL 10/15/2024 5:44 PM EDT [facility] Comment:Accuracy of a glucos e result obtained from a capillary whole blood specimen relies upon adequate, non-compromised capillary blood flow. If the capillary glucose result is not consistent with the patient's clinical signs and symptoms, glucose testing should be repeated with either an arterial or venous sample on the glucometer or sent to the main labortory for testing. Comment 10/15/2024 5:44 PM EDT [facility] Electrocardiographic Technician ID Sophia Stokes 5:44 PM EDT [facility]ALTH[facility]ARE LAB Device ID [id number] 10/15/2024 5:44 PM EDT [facility] Specimen Type POC Capillary 10/15/2024 5:44 PM EDT [facility] Blood Capillary blood specimen / Unknown 10/15/2024 5:43 PM EDT 10/15/2024 5:44 PM EDT us Unknown Claudia Cali MD LAB POINT OF C ARE TEST DOCKED DEVICE UNSOLICITED RESULTS Final Result Performing Organization Address [facility] de Phone Number [facility] [address] [place] [address] * PERIPHERAL IV ([employer] L[employer]) (10/15/2024 2:18 PM EDT) Narrative Barbie Hollingsworth RN - 10/15/2024 2:18 PM EDT Barbie Hollingsworth RN 10/15/2024 2:19 PM Insert peripheral IV Performed by: Barbie Hollingsworth, RN Authorized by: Claudia Cali MD Hand hygiene: Hand hygiene performed prior to insertion Inserted using aseptic techniques: Yes Preparation: Skin prepped with chg Orientation: Right Location: Forearm Catheter placed: Peripheral IV Catheter size: 20g/2.00in Line Technique: Ultrasound Guidance Number of attempts: 1 IV flushes: Without difficulty and positive blood return noted Patient tolerance: Patient tolerated the procedure well Patient comfort measures used: Position of comfort IV site covered with: Transparent semipermeable dressing us Unknown Claudia Cali MD IV THERAPY ORDERABLES Final Result * (ABNORMAL) POCT glucose meter (10/15/2024 12:20 PM EDT) [facility] POCT Glucose 287(H) 74 - 99 mg/dL 10/15/2024 12:22 PM EDT [facility] Comment:Accuracy of a glucos e result obtained from a capillary whole blood specimen relies upon adequate, non-compromised capillary blood flow. If the capillary glucose result is not consistent with the patient's clinical signs and symptoms, glucose testing should be repeated with either an arterial or venous sample on the glucometer or sent to the main labortory for testing. Comment 10/15/2024 12:22 PM EDT [facility] Electrocardiographic Technician ID Sophia Stokes 12:22 PM EDT [facility] Device ID [id number] 10/15/2024 12:22 PM EDT [facility] Specimen Type POC Capillary 10/15/2024 12:22 PM EDT [facility] Blood Capillary blood specimen / Unknown 10/15/2024 12:20 PM EDT 10/15/2024 12:22 PM EDT us Unknown Claudia Cali MD LAB POINT OF C ARE TEST DOCKED DEVICE UNSOLICITED RESULTS Final Result Performing Organization Address City/State/[facility] Co de Phone Number [facility] [address] [place] [address] * (ABNORMAL) POCT glucose meter (10/15/2024 7:22 AM EDT) [facility] POCT Glucose 221(H) 74 - 99 mg/dL 10/15/2024 8:03 AM EDT [facility] Comment:Accuracy of a glucos e result obtained from a capillary whole blood specimen relies upon adequate, non-compromised capillary blood flow. If the capillary glucose result is not consistent with the patient's clinical signs and symptoms, glucose testing should be repeated with either an arterial or venous sample on the glucometer or sent to the main labortory for testing. Comment 10/15/2024 8:03 AM EDT [facility] Electrocardiographic Technician Sophia Connell 8:03 AM EDT [facility] Device ID [id number] 10/15/2024 8:03 AM EDT [facility] Specimen Type POC Capillary 10/15/2024 8:03 AM EDT [facility] Blood Capillary blood specimen / Unknown 10/15/2024 7:22 AM EDT 10/15/2024 8:03 AM EDT us Unknown Claudia Cali MD LAB POINT OF C ARE TEST DOCKED DEVICE UNSOLICITED RESULTS Final Result [facility] [address] [place] [address] * (ABNORMAL) Comprehensive Metabolic Panel, Plasma (10/15/2024 4:19 AM EDT) Glucose, Plasma 242(H) 74 - 99 mg/dL 10/15/2024 5:12 AM EDT [facility] BUN, Plasma 20 8 - 23 mg/dL 10/15/2024 5:12 AM EDT [facility] Creatinine, Plasma 0.64 0.60 - 1.10 mg/dL 10/15/2024 5:12 AM EDT [facility] BUN/Creatinine Ratio 31 10/15/2024 5:12 AM EDT [facility] Sodium, Plasma 137 136 - 145 mmol/L 10/15/2024 5:12 AM EDT [facility] Potassium, Plasma 4.3 3.6 - 4.9 mmol/L 10/15/2024 5:12 AM EDT [facility] Chloride, Plasma 106 97 - 107 mmol/L 10/15/2024 5:12 AM EDT [facility] CO2, Plasma 21(L) 22 - 29 mmol/L 10/15/2024 5:12 AM EDT [facility] Anion Gap 10 6 - 16 mmol/L 10/15/2024 5:12 AM EDT [facility] Total Calcium, Plasma 7.5(L) 8.9 - 10.2 mg/dL 10/15/2024 5:12 AM EDT [facility] Total Protein 5.2(L) 6.3 - 7.9 g/dL 10/15/2024 5:12 AM EDT [facility] Albumin, Plasma 2.8(L) 3.5 - 5.2 g/dL 10/15/2024 5:12 AM EDT [facility] AST, Plasma 17 10 - 35 U/L 10/15/2024 5:12 AM EDT [facility] ALT, Plasma 24 10 - 35 U/L 10/15/2024 5:12 AM EDT [facility] Alkaline Phosphatase, Plasma 72 46 - 142 U/L 10/15/2024 5:12 AM EDT [facility] Total Bilirubin, Plasma 0.3 0.2 - 1.1 mg/dL 10/15/2024 5:12 AM EDT [facility] eGFRcr 99.4 mL/min/1.7 3m*2 10/15/2024 5:12 AM EDT [facility] Comment:Reported eGFRcr in m L/min/1.73m2 is based the CKD-EPI 2020 equation that does not use a race coefficient. Blood Venous blood specimen / Unknown Venipuncture / Unknown 10/15/2024 4:19 AM EDT 10/15/2024 4:41 AM EDT us Hyacinth Perkins MD LAB BLOOD ORDERABLES Final Res ult [facility] [address] [place] [address] * (ABNORMAL) CBC and Differential (10/15/2024 4:19 AM EDT) WBC Count 0.45(LL) 3.70 - 10.30 10*3/uL LAB HEMATOLOGY METHOD 10/15/2024 5:48 AM EDT [facility] RBC Count 2.71(L) 3.90 - 5.20 10*6/uL LAB HEMATOLOGY METHOD 10/15/2024 5:48 AM EDT [facility] HGB 8.2(L) 11.2 - 15.7 g/dL LAB HEMATOLOGY METHOD 10/15/2024 5:48 AM EDT [facility] HCT 26.2(L) 34.0 - 45.0 % LAB HEMATOLOGY METHOD 10/15/2024 5:48 AM EDT [facility] Platelet Count 43(L) 155 - 369 10*3/uL LAB HEMATOLOGY METHOD 10/15/2024 5:48 AM EDT [facility] MCV 97 79 - 98 fL LAB HEMATOLOGY METHOD 10/15/2024 5:48 AM EDT [facility] MCH 30.3 26.0 - 32.0 pg LAB HEMATOLOGY METHOD 10/15/2024 5:48 AM EDT [facility] MCHC 31.3 30.7 - 35.5 g/dL LAB HEMATOLOGY METHOD 10/15/2024 5:48 AM EDT [facility] RDW 14.9(H) 11.5 - 14.5 % LAB HEMATOLOGY METHOD 10/15/2024 5:48 AM EDT [facility] MPV 10.5 8.8 - 12.5 fL LAB HEMATOLOGY METHOD 10/15/2024 5:48 AM EDT [facility] nRBC 0.0 <=0.0 per 100 WBCs LAB HEMATOLOGY METHOD 10/15/2024 5:48 AM EDT [facility] Differential Type Automated LAB HEMATOLOGY METHOD 10/15/2024 5:48 AM EDT [facility] Neutrophils % 7 % LAB HEMATOLOGY METHOD 10/15/2024 5:48 AM EDT [facility] Lymphocytes % 82 % LAB HEMATOLOGY METHOD 10/15/2024 5:48 AM EDT [facility] Monocytes % 9 % LAB HEMATOLOGY METHOD 10/15/2024 5:48 AM EDT [facility] Eosinophils % 2 % LAB HEMATOLOGY METHOD 10/15/2024 5:48 AM EDT [facility] Basophils % 0 % LAB HEMATOLOGY METHOD 10/15/2024 5:48 AM EDT [facility] Immature Granulocytes % 0 % LAB HEMATOLOGY METHOD 10/15/2024 5:48 AM EDT [facility] Neutrophils Absolute 0.03(LL) 1.60 - 6.10 10*3/uL LAB HEMATOLOGY METHOD 10/15/2024 5:48 AM EDT [facility] Comment:Marked Leukopenia. A utomated Differential verified by slide scan. Lymphocytes Absolute 0.37(L) 1.20 - 3.90 10*3/uL LAB HEMATOLOGY METHOD 10/15/2024 5:48 AM EDT [facility] Monocytes Absolute 0.04(L) 0.30 - 0.90 10*3/uL LAB HEMATOLOGY METHOD 10/15/2024 5:48 AM EDT [facility] Eosinophils Absolute 0.01 0.00 - 0.50 10*3/uL LAB HEMATOLOGY METHOD 10/15/2024 5:48 AM EDT [facility] Basophils Absolute 0.00 0.00 - 0.10 10*3/uL LAB HEMATOLOGY METHOD 10/15/2024 5:48 AM EDT [facility] Immature Granulocytes Absolute 0.00 0.00 - 0.06 10*3/uL LAB HEMATOLOGY METHOD 10/15/2024 5:48 AM EDT [facility] Blood Venous blood specimen / Unknown Venipuncture / Unknown 10/15/2024 4:19 AM EDT 10/15/2024 4:43 AM EDT Narrative [facility] - 10/15/2024 5:48 AM EDT Therapeutic decision making should be based on absolute values, rather than percentages. us Hyacinth Perkins MD LAB BLOOD ORDERABLES Final Res ult [facility] [address] [place] [address] * ECG Adult (10/14/2024 8:37 PM EDT) EKG DIAGNOSIS CLASS Abnormal MUSE ECG Ventricular Rate 140 BPM MUSE ECG QRSD Interval 86 ms MUSE ECG QT Interval 292 ms MUSE ECG QTC Interval 445 ms MUSE ECG R Carmen -4 degrees MUSE ECG T Wave Carmen 44 degrees MUSE ECG Diagnosis Atrial fibrillation with rapid ventricular response MUSE ECG Diagnosis Nonspecific ST abnormality MUSE ECG Diagnosis Abnormal ECG MUSE ECG Diagnosis MUSE ECG Diagnosis Confirmed by Joey Perkins ([id number]) on 10/15/2024 12:59:46 PM MUSE ECG 10/14/2024 8:37 PM EDT 10/15/2024 12:59 PM EDT us Vesna Barcenas MD ECG ORDERABLES Final Result MUSE ECG * (ABNORMAL) POCT glucose meter (10/14/2024 8:20 PM EDT) [facility] POCT Glucose 213(H) 74 - 99 mg/dL 10/14/2024 8:22 PM EDT [facility] Comment:Accuracy of a glucos e result obtained from a capillary whole blood specimen relies upon adequate, non-compromised capillary blood flow. If the capillary glucose result is not consistent with the patient's clinical signs and symptoms, glucose testing should be repeated with either an arterial or venous sample on the glucometer or sent to the main labortory for testing. Comment 10/14/2024 8:22 PM EDT [facility] Electrocardiographic Technician ID Debbi Cantu 10/14/2024 8:22 PM EDT [facility] Device ID [id number] 10/14/2024 8:22 PM EDT [facility] Specimen Type POC Capillary 10/14/2024 8:22 PM EDT [facility] Blood Capillary blood specimen / Unknown 10/14/2024 8:20 PM EDT 10/14/2024 8:22 PM EDT Hyacinth Perkins MD LAB POINT OF CARE TE ST DOCKED DEVICE UNSOLICITED RESULTS Final Result [facility] [address] [place] [address] * (ABNORMAL) POCT glucose meter (10/14/2024 5:49 PM EDT) [facility] POCT Glucose 203(H) 74 - 99 mg/dL 10/14/2024 5:51 PM EDT [facility] Comment:Accuracy of a glucos e result obtained from a capillary whole blood specimen relies upon adequate, non-compromised capillary blood flow. If the capillary glucose result is not consistent with the patient's clinical signs and symptoms, glucose testing should be repeated with either an arterial or venous sample on the glucometer or sent to the main labortory for testing. Comment 10/14/2024 5:51 PM EDT [facility] Electrocardiographic Technician ID Cynthia Meza 025 5:51 PM EDT [facility] Device ID [id number] 10/14/2024 5:51 PM EDT [facility] Specimen Type POC Capillary 10/14/2024 5:51 PM EDT [facility] Blood Capillary blood specimen / Unknown 10/14/2024 5:49 PM EDT 10/14/2024 5:51 PM EDT us Hyacinth Perkins MD LAB POINT OF CARE TE ST DOCKED DEVICE UNSOLICITED RESULTS Final Result Performing Organization Address [facility] Co de Phone Number [facility] [address] [place] [address] * (ABNORMAL) Vancomycin, Peak, Plasma Please draw ~2 hours after 0600 dose of vancomycin administeredon 10/14/24 finishes infusing. Consider obtaining level via peripheral stick. If peripheral stick isnot feasible, please ensure that line is flushed well prio... (10/14/2024 2:33 PM EDT) Vancomycin, Peak, Plasma 9.2(L) 20.0 - 40.0 ug/mL 10/14/2024 3:56 PM EDT [facility] Blood Venous blood specimen / Unknown Venipuncture / Unknown 10/14/2024 2:33 PM EDT 10/14/2024 2:39 PM EDT Narrative [facility] - 10/14/2024 3:56 PM EDT Therapeutic Peak level: 20-40ug/mL Supra-therapeutic Peak level: >40 ug/mL us Hyacinth Perkins MD LAB BLOOD ORDERABLES Final Res ult Performing Organization Address [facility] Co de Phone Number [facility] [address] [place] [address] * (ABNORMAL) Prothrombin Time/INR (10/14/2024 11:06 AM EDT) Prothrombin Time 14.9(H) 12.0 - 14.3 sec LAB COAGULATION METHOD 10/14/2024 11:45 AM EDT [facility] INR 1.2(H) 0.9 - 1.1 LAB COAGULATION METHOD 10/14/2024 11:45 AM EDT [facility] Blood Venous blood specimen / Unknown Venipuncture / Unknown 10/14/2024 11:06 AM EDT 10/14/2024 11:25 AM EDT Narrative [facility] - 10/14/2024 11:45 AM EDT OPTIMAL INR RANGES FOR PATIENT ON ORAL ANTICOAGULANT THERAPY Prevention of venous thromboembolism INR 2.0 to 3.0 In patients with heart disease: Atrial fibrillation INR 2.0 to 3.0 Valvular heart disease INR 2.0 to 3.0 Tissue heart valves INR 2.0 to 3.0 Mechanical prosthetic valves INR 2.5 to 3.5 Prevention of recurrent WI INR 2.5 to 3.5 us Lisa RAMSO LAB BLOOD ORDERABLES Final Re sult [facility] [address] [place] [address] * PERIPHERAL IV (SMARTFORM LINK) (10/14/2024 10:55 AM EDT) Narrative Dayana River RN - 10/14/2024 10:55 AM EDT Dayana River RN 10/14/2024 10:56 AM Insert peripheral IV Performed by: Dayana River RN Authorized by: Hyacinth Perkins MD Hand hygiene: Hand hygiene performed prior to insertion Inserted using aseptic techniques: Yes Preparation: Skin prepped with chg Orientation: Right Location: Forearm Catheter placed: Peripheral IV Catheter size: 20g/2.00in Line Technique: Ultrasound Guidance Number of attempts: 1 IV flushes: Without difficulty and positive blood return noted and IV luer locked Patient tolerance: Patient tolerated the procedure well, age appropriate response and there were no complications IV site covered with: Transparent semipermeable dressing Education provided to: Patient us Hyacinth Perkins MD IV THERAPY ORDERABLES Final Re sult * IR Lumbar Puncture (10/14/2024 10:29 AM EDT) Anatomical Region Laterality Modality Spine, L-spine X-Ray Angiograph y Impressions 10/19/2024 12:50 PM EDT Technically successful diagnostic lumbar puncture under fluoroscopic guidance. COMMUNICATION: Per this written report. Preliminary report signed by Lisa Romano on 10/14/2024 11:20 AM By electronically signing this report, I, the attending physician, attest that I have personally reviewed the images/data for the above examination(s) and agree with the final edited report. 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 A diagnostic lumbar puncture under fluoroscopic guidance was requested. PRE-OP EVALUATION: The patient's preoperative neurological exam demonstrated the following findings: She is alert and oriented. DATE: 10/14/2024 10:17 AM COMPARISON: MR head reviewed from 10/09/24. PRESCHOOL ASSOCIATE TEACHER: Lisa Romano PA-C SECONDARY GOVERNMENT AFFAIRS MANAGER: Dr. Gaby Ponce CONTRAST: 0 cc MEDICATIONS: 1% buffered Lidocaine (local) PROCEDURE TIME: 12 minutes FLUORO TIME: 0.3 minutes FLUORO DOSE: 19 mGy TECHNIQUE: The procedure was explained in its entirety to the patient by the radiology team prior to transport to the neuroangiography suite. This included a discussion of the risks, benefits, and alternatives to lumbar puncture. Risks discussed included nerve root injury, low-pressure headache, pain, bleeding, and infection. The patient gave both verbal and written consent to proceed. Timeout was done at the beginning the procedure. Strict hand hygiene protocol was observed. All personnel in the room were attired in surgical hat and mask. The operators were in surgical hat, mask, sterile gown, and sterile gloves. The patient was placed lateral on the fluoroscopy table. The access site was prepped and draped in the standard sterile fashion with iodine. The L3-4 interspace was identified on fluoroscopy. Lidocaine was infiltrated into the skin and soft tissue. A 20-gauge Touhy needle was advanced into the thecal sac. Spontaneous CSF flow was obtained and 16 cc of clear CSF were obtained and sent for testing. Opening pressure was 21 cm water and closing pressure was 14 cm water. The inner trocar of the needle was re-introduced, and the needle was removed. The patient tolerated the procedure without complication. FINDINGS: Technically successful diagnostic lumbar puncture at L3-4 with return of clear and colorless CSF. Opening pressure 21 cm water. Procedure Note Blu Medrano MD - 10/19/2024 Diagnostic Lumbar Puncture Under Fluoroscopic Guidance CLINICAL INDICATION: This is a 63 years old Female presenting withobesity, small-cell lung cancer with brain metastases status post leftfrontal craniotomy who presented with neutropenic fever, sepsis and chemoinduced thrombocytopenia. A diagnostic lumbar puncture under fluoroscopicguidance was requested. PRE-OP EVALUATION: The patient's preoperative neurological examdemonstrated the following findings: She is alert and oriented. DATE: 10/14/2024 10:17 AM COMPARISON: MR head reviewed from 10/09/24. PRESCHOOL ASSOCIATE TEACHER: Lisa Romano PA-C SECONDARY GOVERNMENT AFFAIRS MANAGER: Dr. Gaby Ponce CONTRAST: 0 cc MEDICATIONS: 1% buffered Lidocaine (local) PROCEDURE TIME: 12 minutes FLUORO TIME: 0.3 minutes FLUORO DOSE: 19 mGy TECHNIQUE: The procedure was explained in its entirety to the patient bythe radiology team prior to transport to the neuroangiography suite. Thisincluded a discussion of the risks, benefits, and alternatives to lumbarpuncture. Risks discussed included nerve root injury, low-pressureheadache, pain, bleeding, and infection. The patient gave both verbal andwritten consent to proceed. Timeout was done at the beginning theprocedure. Strict hand hygiene protocol was observed. All personnel inthe room were attired in surgical hat and mask. The operators were insurgical hat, mask, sterile gown, and sterile gloves. The patient wasplaced lateral on the fluoroscopy table. The access site was prepped anddraped in the standard sterile fashion with iodine. The L3-4 interspacewas identified on fluoroscopy. Lidocaine was infiltrated into the skinand soft tissue. A 20-gauge Touhy needle was advanced into the thecalsac. Spontaneous CSF flow was obtained and 16 cc of clear CSF were obtained and sent for testing. Opening pressure was 21 cm water andclosing pressure was 14 cm water. The inner trocar of the needle wasre-introduced, and the needle was removed. The patient tolerated theprocedure without complication. FINDINGS: Technically successful diagnostic lumbar puncture at L3-4 with return ofclear and colorless CSF. Opening pressure 21 cm water. IMPRESSION: Technically successful diagnostic lumbar puncture under fluoroscopicguidance. COMMUNICATION: Per this written report. Preliminary report signed by Lisa Romano on 10/14/2024 11:20 AM By electronically signing this report, I, the attending physician, attestthat I have personally reviewed the images/data for the aboveexamination(s) and agree with the final edited report. Drafted by Lisa Romano on 10/14/2024 11:15 AM Final report signed by Blu Medrano on 10/19/2024 12:50 PM us Lisa Romano PA IMG IR PROCEDURES Final Resul t * Meningitis/Encephalitis Panel by PCR (10/14/2024 10:24 AM EDT) Escherichia coli K1 PCR Result Not Detected Not Detected 10/14/2024 3:51 PM EDT [facility] Haemophilus influenzae PCR Result Not Detected Not Detected 10/14/2024 3:51 PM EDT [facility] Listeria monocytogenes PCR Result Not Detected Not Detected 10/14/2024 3:51 PM EDT [facility] Neisseria meningitidis PCR Result Not Detected Not Detected 10/14/2024 3:51 PM EDT [facility] Streptococcus agalactiae PCR Result Not Detected Not Detected 10/14/2024 3:51 PM EDT [facility] Streptococcus pneumoniae PCR Result Not Detected Not Detected 10/14/2024 3:51 PM EDT [facility] Cytomegalovirus (CMV) PCR Result Not Detected Not Detected 10/14/2024 3:51 PM EDT [facility] Enterovirus (EV) PCR Result Not Detected Not Detected 10/14/2024 3:51 PM EDT [facility] Herpes Simplex Virus 1 (HSV-1) PCR Result Not Detected Not Detected 10/14/2024 3:51 PM EDT [facility] Herpes Simplex Virus 2 (HSV-2) PCR Result Not Detected Not Detected 10/14/2024 3:51 PM EDT [facility] Human Herpes Virus 6 (HHV-6) PCR Result Not Detected Presumptive Negative 10/14/2024 3:51 PM EDT [facility] Human Parechovirus (HPeC) PCR Result Not Detected Not Detected 10/14/2024 3:51 PM EDT [facility] Varicella Zoster Virus (VZV) PCR Result Not Detected Not Detected 10/14/2024 3:51 PM EDT [facility] Cryptococcus neoformans/gattii PCR Result Not Detected Not Detected 10/14/2024 3:51 PM EDT [facility] Cerebrospinal Fluid Lumbar puncture / Unknown Non-blood Collection / Unknown 10/14/2024 10:24 AM EDT 10/14/2024 10:55 AM EDT Narrative [facility] - 10/14/2024 3:51 PM EDT This specimen was tested for the following analytes: Eschericia coli K1, Haemophilus influenzae, Listeria monocytogenes, Neisseria meningitidis, Streptococcus agalactiae, Streptococcus pneumoniae, Cryptococcus neoformans/gattii, Cytomegalovirus, Enterovirus, Human Herpes virus 6, Herpes simplex virus 1, Herpes simplex virus 2, Human parechovirus, and Varicella zoster virus. ...NOTE: This test is not intended for use with CSF collected from indwelling medical devices (e.g. CSF Shunts). ...NOTE: The effect of antibiotic treatment on test performance has not been evaluated. us Hyacinth Perkins MD LAB MICROBIOLOGY - GENERAL ORD ERABLES Final Result Performing Organization Address City/[facility] Co de Phone Number [address] [address] * Fungal Culture, Cerebrospinal Fluid (CSF) and Emily Ink (10/14/2024 10:24 AM EDT) Culture No Fungal Growth at 3 Weeks 11/04/2024 10:05 AM EDT [facility] Emily Ink No fungal elements seen 11/04/2024 10:05 AM EDT [facility] Cerebrospinal Fluid Lumbar puncture / Unknown Non-blood Collection / Unknown 10/14/2024 10:24 AM EDT 10/14/2024 10:55 AM EDT us Hyacinth Perkins MD LAB MICROBIOLOGY - GENERAL ORD ERABLES Final Result Performing Organization Address City/[facility]/ZIP Co de Phone Number [facility] [address] [place] [address] * Cryptococcal Antigen, CSF (10/14/2024 10:24 AM EDT) Pathologist [facility] Cryptococcal Antigen Result (CSF) Negative Negative 10/14/2024 3:50 PM EDT [facility] Cerebrospinal Fluid Lumbar puncture / Unknown Non-blood Collection / Unknown 10/14/2024 10:24 AM EDT 10/14/2024 10:55 AM EDT us Hyacinth Perkins MD LAB MICROBIOLOGY - GENERAL ORD [place] [address] * Cerebrospinal Fluid (CSF) Culture and Gram Stain (10/14/2024 10:24 AM EDT) Pathologist [facility] Culture No growth at day 4 2024 8:24 AM EDT [facility] Gram Stain No polymorphonuclear leukocytes seen 10/17/2024 8:24 AM EDT [facility] Gram Stain No organisms seen 025 8:24 AM EDT [facility] Cerebrospinal Fluid Lumbar puncture / Unknown Non-blood Collection / Unknown 10/14/2024 10:24 AM EDT 10/14/2024 10:55 AM EDT us Hyacinth Perkins MD LAB MICROBIOLOGY - GENERAL ORD ERABLES Final Result [facility] [address] [place] [address] * HUYEN Polyoma Virus Quantitative by PCR, CSF (10/14/2024 10:24 AM EDT) Pathologist [facility] HUYEN POLYOMA VIRUS DNA, QN,CSF Not Detected Not Detected copies/mL 10/15/2024 6:34 PM EDT [facility] ([facility]) Comment: Assay Range: 72 copies/mL to 1.00E+08 copies/mL The limit of quantitation (LOQ) is 72 copies/mL. HUYEN virus DNA detected below the LOQ will be reported as Detected:<72 copies/mL. This test was developed and its performance characteristics determined by [facility]. It has not been cleared or approved by the U.S. Food and Drug Administration. Results should be used in conjunction with clinical findings, and should not form the sole basis for a diagnosis or treatment decision. Testing Performed at: [facility] [address] [place] [address] Box Bender: Anatoly Turk PhD [facility] ([facility]B) CLIA # [id number] FLAG Interpretation: A = Abnormal, H = High, L = Low Cerebrospinal Fluid Cerebrospinal fluid specimen / Unknown Non-blood Collection / Unknown 10/14/2024 10:24 AM EDT 10/14/2024 11:01 AM EDT Narrative [facility] ([facility]EX) - 10/15/2024 6:34 PM EDT Release to patient in [facility]->Immediate Hyacinth Perkins MD LAB BODY FLUIDS AND STOOLS ORD ERABLES Final Result [facility] [employer]) * MADINA ALMANZA DNA BY PCR(CSF) (SO) (10/14/2024 10:24 AM EDT) Madina Almanza PCR CSF Not Detected Not Detected IU/mL 10/15/2024 8:27 PM EDT [facility] (ALEX) Comment: Assay Range: 52 IU/mL to 1.69E+08 IU/mL The limit of quantitation (LOQ) is 52 IU/mL. EBV DNA detected below the LOQ will be reported as Detected:<52 IU/mL. This test was developed and its performance characteristics determined by [facility]. It has not been cleared or approved by the U.S. Food and Drug Administration. Results should be used in conjunction with clinical findings, and should not form the sole basis for a diagnosis or treatment decision. Testing Performed at: [facility] [address] [place] [id number] Box Bender: Anatoly Turk, PhD SUNITA (ABB) CLIA # [id number] FLAG Interpretation: A = Abnormal, H = High, L = Low Cerebrospinal Fluid Cerebrospinal fluid specimen / Unknown Non-blood Collection / Unknown 10/14/2024 10:24 AM EDT 10/14/2024 11:01 AM EDT Su FINK) - 10/15/2024 8:27 PM EDT Release to patient in [facility]->Immediate Hyacinth Perkins MD LAB BODY FLUIDS AND STOOLS ORD ERABLES Final Result ALLIE FINK) * West Nile virus, CSF (10/14/2024 10:24 AM EDT) WEST NILE VIRUS AB,IGG,CSF 0.01 <=1.29 IV 10/17/2024 7:33 AM EDT [facility] ([facility]) WEST NILE VIRUS AB,IGM,CSF 0.00 <=0.89 IV 10/17/2024 7:33 AM EDT [facility] (ALEX) Cerebrospinal Fluid Cerebrospinal fluid specimen / Unknown Non-blood Collection / Unknown 10/14/2024 10:24 AM EDT 10/14/2024 11:01 AM EDT Located Within [facility] ([facility]) - 10/17/2024 7:33 AM EDT INTERPRETIVE INFORMATION: West Nile Virus Ab IgG by SONI, CSF 1.29 IV or less ....... Negative: No significant level of West Nile virus IgG antibody detected. 1.30 - 1.49 IV ........ Equivocal: Questionable presence of West Nile virus IgG antibody detected. Repeat testing in 10-14 days may be helpful. 1.50 IV or greater .... Positive: Presence of IgG antibody to West Nile virus detected, suggestive of current or past infection. This test is intended to be used as a semi-quantitative means of detecting West Nile virus-specific IgG in CSF samples in which there is a clinical suspicion of West Nile Virus infection. This test should not be used solely for quantitative purposes, nor should the results be used without correlation to clinical history or other data. Because other members of the Flaviviridae family, such as Dickens encephalitis virus, show extensive cross-reactivity with West Nile virus, serologic testing specific for these species should be considered. The detection of antibodies to West Nile virus in cerebrospinal fluid may indicate central nervous system infection. However, consideration must be given to possible contamination by blood or transfer of serum antibodies across the blood-brain barrier. This test was developed and its performance characteristics determined by [facility]. It has not been cleared or approved by the [place] Food and Drug Administration. This test was performed in a CLIA certified laboratory and is intended for clinical purposes. INTERPRETIVE INFORMATION: West Nile Virus Ab IgM by SONI, CSF 0.89 IV or less ...... Negative - No significant level of West Nile virus IgM antibody detected. 0.90-1.10 IV ......... Equivocal - Questionable presence of West Nile virus IgM antibody detected. Repeat testing in 10-14 days may be helpful. 1.11 IV or greater ... Positive - Presence of IgM antibody to West Nile virus detected, suggestive of current or recent infection. This test is intended to be used as a semi-quantitative means of detecting West Nile virus-specific IgM in CSF samples in which there is a clinical suspicion of West Nile virus infection. This test should not be used solely for quantitative purposes, nor should the results be used without correlation to clinical history or other data. Because other members of the Flaviviridae family, such as Dickens encephalitis virus, show extensive cross-reactivity with West Nile virus, serologic testing specific for these species should be considered. The detection of antibodies to West Nile virus in cerebrospinal fluid may indicate central nervous system infection. However, consideration must be given to possible contamination by blood or transfer of serum antibodies across the blood-brain barrier. This test was developed and its performance characteristics determined by [facility]. It has not been cleared or approved by the [place] Food and Drug Administration. This test was performed in a CLIA certified laboratory and is intended for clinical purposes. Performed By: [facility] [address] [place] [address] Fine Dining Server: Manuel Mas MD, PhD CLIA Number: [id number] us Hyacinth Perkins MD LAB BLOOD ORDERABLES Final Res ult [facility] ([facility]) [address] [place] [address] * Lactate Dehydrogenase Total, Body Fluid (SO) (10/14/2024 10:24 AM EDT) Lactate Dehydrogenase Total, Body Fluid 21 U/L 10/16/2024 12:07 AM EDT [facility] (ALEX) LDH Fluid Source CSF 10/17/19 12:07 AM EDT [facility] (ALEX) Cerebrospinal Fluid Non-blood Collection / Unknown 10/14/2024 10:24 AM EDT 10/14/2024 11:01 AM EDT Narrative [facility] (ALEX) - 10/16/2024 12:07 AM EDT INTERPRETIVE INFORMATION: Lactate Dehydrogenase Total, Body Fluid For information on body fluid reference ranges and/or interpretive guidance visit [email or web address]/bodyfluids/ This test was developed and its performance characteristics determined by [facility]. It has not been cleared or approved by the [place] Food and Drug Administration. This test was performed in a CLIA certified laboratory and is intended for clinical purposes. Performed By: [facility] [address] [place] [address] Fine Dining Server: Manuel Mas MD, PhD CLIA Number: [id number] Hyacinth Perkins MD LAB REF LAB BLOOD AND FLUID OR D Final Result [facility] [address] [place], [place] [id number] * Protein, CSF (10/14/2024 10:24 AM EDT) Total Protein, CSF 31 15 - 45 mg/dL 10/14/2024 12:15 PM EDT [facility] Cerebrospinal Fluid Lumbar puncture / Unknown Non-blood Collection / Unknown 10/14/2024 10:24 AM EDT 10/14/2024 11:01 AM EDT Narrative [facility] - 10/14/2024 12:15 PM EDT Blood, when present in CSF, invalidates protein. Interpret results in the context of the patient's condition and other laboratory results. us Hyacinth Perkins MD LAB BODY FLUIDS AND STOOLS ORD ERABLES Final Result Performing Organization Address [facility]/ZIP Co de Phone Number [facility] [address] [place] [address] * (ABNORMAL) Glucose, CSF (10/14/2024 10:24 AM EDT) Glucose, CSF 89(H) 41 - 70 mg/dL 10/14/2024 12:15 PM EDT [facility] Cerebrospinal Fluid Lumbar puncture / Unknown Non-blood Collection / Unknown 10/14/2024 10:24 AM EDT 10/14/2024 11:01 AM EDT Narrative [facility] - 10/14/2024 12:15 PM EDT CSF glucose values should be approximately 60 % of the plasma values and must always be compared with concurrently measured plasma values for adequate clinical interpretation. No reference ranges have been established for pediatric patients. Hyacinth Perkins MD LAB BODY FLUIDS AND STOOLS ORD ERABLES Final Result Performing Organization Address [facility] Co de Phone Number [facility] [address] [place] [address] * CSF Cell Count W/O Diff (10/14/2024 10:24 AM EDT) Unspun Color, CSF Colorless Colorless LAB HEMATOLOGY METHOD 10/14/2024 12:10 PM EDT [facility] Unspun Clarity, CSF Clear Clear LAB HEMATOLOGY METHOD 10/14/2024 12:10 PM EDT [facility] Spun Color, CSF LAB HEMATOLOGY METHOD 10/14/2024 12:10 PM EDT [facility] Comment:Test Not Indicated Spun Clarity, CSF LAB HEMATOLOGY METHOD 10/14/2024 12:10 PM EDT [facility] Comment:Test Not Indicated Volume CSF 3.0 cc LAB HEMATOLOGY METHOD 10/14/2024 12:10 PM EDT [facility] Tube Number, CSF Tube 1 LAB HEMATOLOGY METHOD 10/14/2024 12:10 PM EDT [facility] Total Nucleated Cell Count, CSF 2 0 - 5 L LAB HEMATOLOGY METHOD 10/14/2024 12:10 PM EDT [facility] Comment:Test performed by cecy chávez. Red Blood Cell Count, CSF 1 0 uL uL LAB HEMATOLOGY METHOD 10/14/2024 12:10 PM EDT [facility] Comment:Test performed by ma lamal method. Cerebrospinal Fluid Lumbar puncture / Unknown Non-blood Collection / Unknown 10/14/2024 10:24 AM EDT 10/14/2024 10:59 AM EDT us Hyacinth Perkins MD LAB BODY FLUIDS AND STOOLS ORD ERABLES Final Result [facility] [address] [place] [address] * CSF Cell Count w/ Manual Differential (10/14/2024 10:24 AM EDT) Unspun Color, CSF Colorless Colorless LAB HEMATOLOGY METHOD 10/14/2024 12:19 PM EDT [facility] Unspun Clarity, CSF Clear Clear LAB HEMATOLOGY METHOD 10/14/2024 12:19 PM EDT [facility] Spun Color, CSF LAB HEMATOLOGY METHOD 10/14/2024 12:19 PM EDT [facility] Comment:Test Not Indicated Spun Clarity, CSF LAB HEMATOLOGY METHOD 10/14/2024 12:19 PM EDT [facility] Comment:Test Not Indicated Volume CSF 4.0 cc LAB HEMATOLOGY METHOD 10/14/2024 12:19 PM EDT [facility] Tube Number, CSF Tube 4 LAB HEMATOLOGY METHOD 10/14/2024 12:19 PM EDT [facility] Red Blood Cell Count, CSF 0 0 uL uL LAB HEMATOLOGY METHOD 10/14/2024 12:19 PM EDT [facility] Comment:Test performed by ma nual method. Total Nucleated Cell Count, CSF 2 0 - 5 L LAB HEMATOLOGY METHOD 10/14/2024 12:19 PM EDT [facility] Comment:Test performed by ma nual method. Neutrophils %, CSF LAB HEMATOLOGY METHOD 10/14/2024 12:19 PM EDT [facility] Comment:Too few to count Lymphocytes %, CSF LAB HEMATOLOGY METHOD 10/14/2024 12:19 PM EDT [facility] Comment:Too few to count Monocytes/Macro phages %, CSF LAB HEMATOLOGY METHOD 10/14/2024 12:19 PM EDT [facility] Comment:Too few to count Eosinophils %, CSF LAB HEMATOLOGY METHOD 10/14/2024 12:19 PM EDT [facility] Comment:Too few to count Basophils %, CSF LAB HEMATOLOGY METHOD 10/14/2024 12:19 PM EDT [facility] Comment:Too few to count Neutrophils Absolute, CSF LAB HEMATOLOGY METHOD 10/14/2024 12:19 PM EDT [facility] Comment:Too few to count Lymphocytes Absolute, CSF LAB HEMATOLOGY METHOD 10/14/2024 12:19 PM EDT [facility] Comment:Too few to count Monocytes/Macro phages Absolute, CSF LAB HEMATOLOGY METHOD 10/14/2024 12:19 PM EDT [facility] Comment:Too few to count Eosinophils Absolute, CSF LAB HEMATOLOGY METHOD 10/14/2024 12:19 PM EDT [facility] Comment:Too few to count Basophils Absolute, CSF LAB HEMATOLOGY METHOD 10/14/2024 12:19 PM EDT [facility] Comment:Too few to count Cerebrospinal Fluid Lumbar puncture / Unknown Non-blood Collection / Unknown 10/14/2024 10:24 AM EDT 10/14/2024 10:59 AM EDT Hyacinth Perkins MD LAB BODY FLUIDS AND STOOLS ORD ERABLES Final Result [facility] [address] [place] [address] * Non-Gynecologic Cytology (10/14/2024 10:24 AM EDT) Case Report Cytology Case: [id number] Authorizing Provider: Hyacinth Perkins MD Collected: 10/14/2024 1024 Ordering Location: [facility] Emergency Department Received: 10/14/2024 1353 Pathologist: Miryam Navarro MD Specimen: Cerebrospinal Fluid, CEREBROSPINAL FLUID 10/17/2024 4:58 PM EDT [facility] Final Diagnosis A. CEREBROSPINAL FLUID: - NO EVIDENCE OF MALIGNANCY. 10/17/2024 4:58 PM EDT [facility] at 1658 EDT Clinical History H/O SCLC, mets to brain 10/17/2024 4:58 PM EDT [facility] Previous Cancer Yes 10/17/2024 4:58 PM EDT [facility] Previous Cancer Primary Site Lung Cancer 10/17/2024 4:58 PM EDT [facility] Gross Description A. CEREBROSPINAL FLUID 8 ml's clear fluid, 3 ml's tube one, 0.5 ml's tube two, 1.5 ml's tube three and 3 ml's tube four processed as thin prep 10/17/2024 4:58 PM EDT [facility] Cerebrospinal Fluid Cerebrospinal fluid specimen / Unknown Non-blood Collection / Unknown 10/14/2024 10:24 AM EDT 10/14/2024 1:53 PM EDT Result Arlet Perkins MD LAB CYTOLOGY ORDERABLES Final Result Performing Organization Address [facility] Co de Phone Number [facility] [address] [place] [address] * CSF Panel (10/14/2024 10:24 AM EDT) Cerebrospinal Fluid Lumbar puncture / Unknown Non-blood Collection / Unknown 10/14/2024 10:24 AM EDT 10/14/2024 10:55 AM EDT us Hyacinth Perkins MD LAB BODY FLUIDS AND STOOLS ORD ERABLES Final Result Performing Organization Address [facility] Co de Phone Number [facility] [address] [place] [address] * CSF Panel (10/14/2024 10:24 AM EDT) Cerebrospinal Fluid Lumbar puncture / Unknown Non-blood Collection / Unknown 10/14/2024 10:24 AM EDT 10/14/2024 10:55 AM EDT Result Arlet Perkins MD LAB BODY FLUIDS AND STOOLS ORD ERABLES Final Result Performing Organization Address City/[facility]/ZIP Co de Phone Number [facility] [address] [place] [address] * (ABNORMAL) POCT glucose meter (10/14/2024 9:37 AM EDT) [facility] POCT Glucose 139(H) 74 - 99 mg/dL 10/14/2024 9:54 AM EDT [facility] Comment:Accuracy of a glucos e result obtained from a capillary whole blood specimen relies upon adequate, non-compromised capillary blood flow. If the capillary glucose result is not consistent with the patient's clinical signs and symptoms, glucose testing should be repeated with either an arterial or venous sample on the glucometer or sent to the main labortory for testing. Comment 10/14/2024 9:54 AM EDT [facility] Electrocardiographic Technician ID Michelle Carranza 10/14/2024 9:54 AM EDT [facility] Device ID [id number] 10/14/2024 9:54 AM EDT [facility] Specimen Type POC Capillary 10/14/2024 9:54 AM EDT [facility] Blood Capillary blood specimen / Unknown 10/14/2024 9:37 AM EDT 10/14/2024 9:54 AM EDT Hyacinth Perkins MD LAB POINT OF CARE TE ST DOCKED DEVICE UNSOLICITED RESULTS Final Result [facility] [address] [place] [id number] * (ABNORMAL) Vancomycin, Trough, Plasma Please draw ~30 minutes prior to dose due at 0600 on 10/14/24.Please do NOT hold dose awaiting level to return. Consider obtaining level via peripheral stick. Ifperipheral stick is not feasible, please ensure that line ... (10/14/2024 5:46 AM EDT) [facility] Vancomycin, Trough, Plasma 6.6(L) 10.0 - 20.0 ug/mL 10/14/2024 7:09 AM EDT [facility] Blood Venous blood specimen / Unknown Venipuncture / Unknown 10/14/2024 5:46 AM EDT 10/14/2024 5:53 AM EDT Narrative [facility] - 10/14/2024 7:09 AM EDT Therapeutic Trough level: 10-20ug/mL Supra-therapeutic Trough level: >20 ug/mL us Hyacinth Perkins MD LAB BLOOD ORDERABLES Final Res ult [facility] [address] [place] [address] * (ABNORMAL) CBC and Differential (10/14/2024 5:46 AM EDT) WBC Count 0.40(LL) 3.70 - 10.30 10*3/uL LAB HEMATOLOGY METHOD 10/14/2024 11:39 AM EDT [facility] RBC Count 2.96(L) 3.90 - 5.20 10*6/uL LAB HEMATOLOGY METHOD 10/14/2024 11:39 AM EDT [facility] HGB 9.2(L) 11.2 - 15.7 g/dL LAB HEMATOLOGY METHOD 10/14/2024 11:39 AM EDT [facility] HCT 27.6(L) 34.0 - 45.0 % LAB HEMATOLOGY METHOD 10/14/2024 11:39 AM EDT [facility] Platelet Count 47(L) 155 - 369 10*3/uL LAB HEMATOLOGY METHOD 10/14/2024 11:39 AM EDT [facility] MCV 93 79 - 98 fL LAB HEMATOLOGY METHOD 10/14/2024 11:39 AM EDT [facility] MCH 31.1 26.0 - 32.0 pg LAB HEMATOLOGY METHOD 10/14/2024 11:39 AM EDT [facility] MCHC 33.3 30.7 - 35.5 g/dL LAB HEMATOLOGY METHOD 10/14/2024 11:39 AM EDT [facility] RDW 14.7(H) 11.5 - 14.5 % LAB HEMATOLOGY METHOD 10/14/2024 11:39 AM EDT [facility] MPV 10.3 8.8 - 12.5 fL LAB HEMATOLOGY METHOD 10/14/2024 11:39 AM EDT [facility] nRBC 0.0 <=0.0 per 100 WBCs LAB HEMATOLOGY METHOD 10/14/2024 11:39 AM EDT [facility] Differential Type Automated LAB HEMATOLOGY METHOD 10/14/2024 11:39 AM EDT [facility] Neutrophils % 5 % LAB HEMATOLOGY METHOD 10/14/2024 11:39 AM EDT [facility] Lymphocytes % 90 % LAB HEMATOLOGY METHOD 10/14/2024 11:39 AM EDT [facility] Monocytes % 5 % LAB HEMATOLOGY METHOD 10/14/2024 11:39 AM EDT [facility] Eosinophils % 0 % LAB HEMATOLOGY METHOD 10/14/2024 11:39 AM EDT [facility] Basophils % 0 % LAB HEMATOLOGY METHOD 10/14/2024 11:39 AM EDT [facility] Immature Granulocytes % 0 % LAB HEMATOLOGY METHOD 10/14/2024 11:39 AM EDT [facility] Neutrophils Absolute 0.02(LL) 1.60 - 6.10 10*3/uL LAB HEMATOLOGY METHOD 10/14/2024 11:39 AM EDT [facility] Comment:Marked Leukopenia. A utomated Differential verified by slide scan. Lymphocytes Absolute 0.36(L) 1.20 - 3.90 10*3/uL LAB HEMATOLOGY METHOD 10/14/2024 11:39 AM EDT [facility] Monocytes Absolute 0.02(L) 0.30 - 0.90 10*3/uL LAB HEMATOLOGY METHOD 10/14/2024 11:39 AM EDT [facility] Eosinophils Absolute 0.00 0.00 - 0.50 10*3/uL LAB HEMATOLOGY METHOD 10/14/2024 11:39 AM EDT [facility] Basophils Absolute 0.00 0.00 - 0.10 10*3/uL LAB HEMATOLOGY METHOD 10/14/2024 11:39 AM EDT [facility] Immature Granulocytes Absolute 0.00 0.00 - 0.06 10*3/uL LAB HEMATOLOGY METHOD 10/14/2024 11:39 AM EDT [facility] Blood Venous blood specimen / Unknown Venipuncture / Unknown 10/14/2024 5:46 AM EDT 10/14/2024 5:55 AM EDT [facility] - 10/14/2024 11:39 AM EDT Therapeutic decision making should be based on absolute values, rather than percentages. Vesna Barcenas MD LAB BLOOD ORDERABLES Final R esult [facility] [address] [place] [address] * (ABNORMAL) Basic Metabolic Panel, Plasma (10/14/2024 5:46 AM EDT) Glucose, Plasma 164(H) 74 - 99 mg/dL 10/14/2024 6:57 AM EDT [facility] BUN, Plasma 17 8 - 23 mg/dL 10/14/2024 6:57 AM EDT [facility] Creatinine, Plasma 0.54(L) 0.60 - 1.10 mg/dL 10/14/2024 6:57 AM EDT [facility] BUN/Creatinine Ratio 31 10/14/2024 6:57 AM EDT [facility] Sodium, Plasma 140 136 - 145 mmol/L 10/14/2024 6:57 AM EDT [facility] Potassium, Plasma 4.1 3.6 - 4.9 mmol/L 10/14/2024 6:57 AM EDT [facility] Chloride, Plasma 105 97 - 107 mmol/L 10/14/2024 6:57 AM EDT [facility] CO2, Plasma 24 22 - 29 mmol/L 10/14/2024 6:57 AM EDT [facility] Anion Gap 11 6 - 16 mmol/L 10/14/2024 6:57 AM EDT [facility] Total Calcium, Plasma 8.0(L) 8.9 - 10.2 mg/dL 10/14/2024 6:57 AM EDT [facility] eGFRcr 103.6 mL/min/1.7 3m*2 10/14/2024 6:57 AM EDT [facility] Comment:Reported eGFRcr in m L/min/1.73m2 is based the CKD-EPI 2020 equation that does not use a race coefficient. Blood Venous blood specimen / Unknown Venipuncture / Unknown 10/14/2024 5:46 AM EDT 10/14/2024 5:53 AM EDT Vesna Barcenas MD LAB BLOOD ORDERABLES Final R esult [facility] [address] [place] [address] * (ABNORMAL) POCT glucose meter (10/13/2024 8:42 PM EDT) POCT Glucose 235(H) 74 - 99 mg/dL 10/13/2024 8:45 PM EDT [facility] Comment:Accuracy of a glucos e result obtained from a capillary whole blood specimen relies upon adequate, non-compromised capillary blood flow. If the capillary glucose result is not consistent with the patient's clinical signs and symptoms, glucose testing should be repeated with either an arterial or venous sample on the glucometer or sent to the main labortory for testing. Comment 10/13/2024 8:45 PM EDT [facility] Electrocardiographic Technician ID Debbi Cantu 10/13/2024 8:45 PM EDT [facility] Device ID [id number] 10/13/2024 8:45 PM EDT [facility] Specimen Type POC Capillary 10/13/2024 8:45 PM EDT [facility] Blood Capillary blood specimen / Unknown 10/13/2024 8:42 PM EDT 10/13/2024 8:45 PM EDT us Hyacinth Perkins MD LAB POINT OF CARE TE ST DOCKED DEVICE UNSOLICITED RESULTS Final Result [facility] [address] [place] [address] * CT Chest w IV Contrast (10/13/2024 8:26 PM EDT) Anatomical Region Laterality Modality Chest Computed Tomogra phy Impressions 10/13/2024 9:09 PM EDT Right lower lobe nodular airspace disease concerning for infection. Slight decrease in size of medial right lower lobe pleural nodule. CRITICAL RESULT: No. COMMUNICATION: Per this written report. Drafted by Liseth Woods MD on 10/13/2024 9:02 PM Final report signed by Liseth Woods MD on 10/13/2024 9:09 PM Narrative 10/13/2024 9:09 PM EDT CLINICAL INDICATION: Pneumonia, complication suspected TECHNIQUE: Multiple axial CT images were obtained from thoracic inlet through upper abdomen following administration of IV contrast, Omnipaque 300, 100 mL. Reformatted images of the abdomen and pelvis in the coronal and sagittal planes were generated from the axial data set to facilitate diagnostic accuracy. Total DLP (Dose-Length Product): 452.86 mGy.cm. Please note: The reported value represents the total of one or more individual components during the CT acquisition on this date and at this time, and as such, the same value may appear in more than one CT report depending on the interpreting/reporting physicians. COMPARISON: September 01, 2024 FINDINGS: Chest: Lymph Nodes and Mediastinum: No lymphadenopathy by CT size criteria. No mediastinal mass lesions. No suspicious thyroid findings. Cardiovascular: The heart is normal in caliber. Thoracic great vessels are patent. No pericardial effusion. Lungs and Pleura: Central airways are clear. Posterior right upper lobe scarring appears similar to comparison. New nodular opacities in the right lower lobe concerning for infection. Right medial right lower lobe pleural nodule measures 19 mm, previously 22 mm (series 4 image 271). No new suspicious nodule. No pleural effusion. Musculoskeletal and Body Wall: No clearly aggressive bone lesions. Upper Abdomen: Partially imaged right renal cysts. No acute findings in the imaged upper abdomen. Procedure Note Liseth Woods MD - 10/13/2024 CLINICAL INDICATION: Pneumonia, complication suspected TECHNIQUE: Multiple axial CT images were obtained from thoracic inlet through upperabdomen following administration of IV contrast, Omnipaque 300, 100 mL.Reformatted images of the abdomen and pelvis in the coronal and sagittalplanes were generated from the axial data set to facilitate diagnosticaccuracy. Total DLP (Dose-Length Product): 452.86 mGy.cm. Please note: The reportedvalue represents the total of one or more individual components during theCT acquisition on this date and at this time, and as such, the same valuemay appear in more than one CT report depending on theinterpreting/reporting physicians. COMPARISON: September 01, 2024 FINDINGS: Chest: Lymph Nodes and Mediastinum: No lymphadenopathy by CT size criteria. Nomediastinal mass lesions. No suspicious thyroid findings. Cardiovascular: The heart is normal in caliber. Thoracic great vessels arepatent. No pericardial effusion. Lungs and Pleura: Central airways are clear. Posterior right upper lobescarring appears similar to comparison. New nodular opacities in the rightlower lobe concerning for infection. Right medial right lower lobe pleuralnodule measures 19 mm, previously 22 mm (series 4 image 271). No newsuspicious nodule. No pleural effusion. Musculoskeletal and Body Wall: No clearly aggressive bone lesions. Upper Abdomen: Partially imaged right renal cysts. No acute findings inthe imaged upper abdomen. IMPRESSION: Right lower lobe nodular airspace disease concerning for infection. Slight decrease in size of medial right lower lobe pleural nodule. CRITICAL RESULT: No. COMMUNICATION: Per this written report. Drafted by Liseth Woods MD on 10/13/2024 9:02 PM Final report signed by Liseth Woods MD on 10/13/2024 9:09 PM us Berto Stanford DO IMG CT PROCEDURES Final Re sult * (ABNORMAL) POCT glucose meter (10/13/2024 5:55 PM EDT) POCT Glucose 271(H) 74 - 99 mg/dL 10/13/2024 5:56 PM EDT [facility] Comment:Accuracy of a glucos e result obtained from a capillary whole blood specimen relies upon adequate, non-compromised capillary blood flow. If the capillary glucose result is not consistent with the patient's clinical signs and symptoms, glucose testing should be repeated with either an arterial or venous sample on the glucometer or sent to the main labortory for testing. Comment 10/13/2024 5:56 PM EDT [facility] Electrocardiographic Technician ID Cheryle Hall 025 5:56 PM EDT [facility] Device ID [id number] 10/13/2024 5:56 PM EDT [facility] Specimen Type POC Capillary 10/13/2024 5:56 PM EDT [facility] Blood Capillary blood specimen / Unknown 10/13/2024 5:55 PM EDT 10/13/2024 5:56 PM EDT us Hyacinth Perkins MD LAB POINT OF CARE TE ST DOCKED DEVICE UNSOLICITED RESULTS Final Result [facility] [address] [place] [address] * (ABNORMAL) POCT glucose meter (10/13/2024 11:26 AM EDT) [facility] POCT Glucose 131(H) 74 - 99 mg/dL 10/13/2024 11:28 AM EDT [facility] Comment:Accuracy of a glucos e result obtained from a capillary whole blood specimen relies upon adequate, non-compromised capillary blood flow. If the capillary glucose result is not consistent with the patient's clinical signs and symptoms, glucose testing should be repeated with either an arterial or venous sample on the glucometer or sent to the main labortory for testing. Comment 10/13/2024 11:28 AM EDT [facility] Electrocardiographic Technician ID Jessie Walsh 025 11:28 AM EDT [facility] Device ID [id number] 10/13/2024 11:28 AM EDT [facility] Specimen Type POC Capillary 10/13/2024 11:28 AM EDT [facility] Blood Capillary blood specimen / Unknown 10/13/2024 11:26 AM EDT 10/13/2024 11:28 AM EDT Hyacinth Perkins MD LAB POINT OF CARE TE ST DOCKED DEVICE UNSOLICITED RESULTS Final Result Performing Organization Address City/State/[facility] Co de Phone Number [facility] [address] [place] [address] * (ABNORMAL) POCT glucose meter (10/13/2024 7:04 AM EDT) [facility] POCT Glucose 120(H) 74 - 99 mg/dL 10/13/2024 7:06 AM EDT [facility] Comment:Accuracy of a glucos e result obtained from a capillary whole blood specimen relies upon adequate, non-compromised capillary blood flow. If the capillary glucose result is not consistent with the patient's clinical signs and symptoms, glucose testing should be repeated with either an arterial or venous sample on the glucometer or sent to the main labortory for testing. Comment 10/13/2024 7:06 AM EDT [facility] Electrocardiographic Technician ID Jessie Walsh 025 7:06 AM EDT [facility] Device ID [id number] 10/13/2024 7:06 AM EDT [facility] Specimen Type POC Capillary 10/13/2024 7:06 AM EDT [facility] Blood Capillary blood specimen / Unknown 10/13/2024 7:04 AM EDT 10/13/2024 7:06 AM EDT Berto Stanford DO LAB POINT OF CARE TEST DOCKED DEVICE UNSOLICITED RESULTS Final Result [facility] [address] [place] [address] * MR Head w and wo IV Contrast (10/13/2024 6:48 AM EDT) Anatomical Region Laterality Modality Head Magnetic Resonan ce Impressions 10/13/2024 12:36 PM EDT 1. No definite acute ischemic or hemorrhagic changes. 2. Evolving areas of hemorrhage within the surgical cavity in the left posterior frontal convexity with also interval evolution of hemorrhagic component within the centrum semiovale with no definite worsening areas of hemorrhage or mass effect. Decreased amount of vasogenic edema surrounding the surgical cavity and the parenchymal hemorrhagic component. 3. Redemonstration of residual tumor along the medial margin of the surgical cavity and adjacent to the falx with slightly decreased amount of enhancement. Apparent decrease amount of filling defect within the adjacent superior sagittal sinus, somewhat difficult to evaluate due to motion. No definite new or worsening areas of masslike enhancement or mass effect. 4. Almost complete resolution of left convexity subdural hemorrhage. Slightly more conspicuous small area of hyperintense T2 signal in the left thalamus, nonspecific, could represent evolving toxic/metabolic insults or posttreatment changes. CRITICAL RESULT: No. COMMUNICATION: Per this written report. By electronically signing this report, I, the attending physician, attest that I have personally reviewed the images/data for the above examination(s) and agree with the final edited report. Drafted by Daylin Mccartney DO on 10/13/2024 9:25 AM Final report signed by Harpreet Draper MD on 10/13/2024 12:36 PM Narrative 10/13/2024 12:36 PM EDT CLINICAL INDICATION: Mental status change, unknown cause TECHNIQUE: Multiplanar multiecho sequences were performed through the brain utilizing T1 and T2 weighting, as well as either axial susceptibility weighted or gradient echo sequences, and axial diffusion weighted images. Imaging was performed with and without contrast administration: 11.9 mL of Gadavist. COMPARISON: CT head dated October 04, 2024 MR head dated September 05, 2024 MR head dated September 01, 2024 FINDINGS: Diagnostic Quality: Adequate. Status post left posterior frontal lobe craniotomy with overall decrease amount of hemorrhagic changes, with evolution of signal intensity, more conspicuous on T1-weighted images with more clear hyperintensity on today's examination, but with overall decrease in extension. Prominent susceptibility artifact is also demonstrated in the region. A small amount of parenchymal hemorrhage in the subjacent left centrum semiovale is also mildly decreased with decrease amount of peripheral hyperintense FLAIR signal. Interval near resolve of previously noted left convexity small hematoma. Residual tumor along the deep medial margin with interval loss of enhancement (series 16 image 122), that was appreciated on prior MRI dated September 05, 2024. There is persistent mild amount of dural enhancement surrounding the surgical bed. No new areas of restricted diffusion to suggest acute infarction. There is a small focal area of hyperintense T2 signal in the left thalamus, with no representation on other sequences, slightly more conspicuous as compared with prior. Vascular Flow Voids: Unremarkable. Paranasal Sinuses and Mastoid Air Cells: Dominant right maxillary sinus. Minimal right maxillary sinus mucosal thickening. Mastoid air cells are clear. Orbits: No definite masses within the limitations of the study. Extracranial Findings: The posterior frontal lobe craniotomy with scalp alejandro. Craniocervical Junction and Skull Base: No tonsillar ectopia or mass is present. Procedure Note Harpreet Palomo MD - 10/13/2024 CLINICAL INDICATION: Mental status change, unknown cause TECHNIQUE: Multiplanar multiecho sequences were performed through the brain utilizingT1 and T2 weighting, as well as either axial susceptibility weighted orgradient echo sequences, and axial diffusion weighted images. Imaging wasperformed with and without contrast administration: 11.9 mL of Gadavist. COMPARISON: CT head dated October 04, 2024 MR head dated September 05, 2024 MR head dated September 01, 2024 FINDINGS: Diagnostic Quality: Adequate. Status post left posterior frontal lobe craniotomy with overall decreaseamount of hemorrhagic changes, with evolution of signal intensity, moreconspicuous on T1-weighted images with more clear hyperintensity ontoday's examination, but with overall decrease in extension. Prominentsusceptibility artifact is also demonstrated in the region. A small amount of parenchymal hemorrhage in the subjacent left centrumsemiovale is also mildly decreased with decrease amount of peripheralhyperintense FLAIR signal. Interval near resolve of previously noted left convexity small hematoma. Residual tumor along the deep medial margin with interval loss ofenhancement (series 16 image 122), that was appreciated on prior MRI datedApril 2024. There is persistent mild amount of dural enhancementsurrounding the surgical bed. No new areas of restricted diffusion to suggest acute infarction. There luzma small focal area of hyperintense T2 signal in the left thalamus, with norepresentation on other sequences, slightly more conspicuous as comparedwith prior. Vascular Flow Voids: Unremarkable. Paranasal Sinuses and Mastoid Air Cells: Dominant right maxillary sinus.Minimal right maxillary sinus mucosal thickening. Mastoid air cells areclear. Orbits: No definite masses within the limitations of the study. Extracranial Findings: The posterior frontal lobe craniotomy with scalpstaples. Craniocervical Junction and Skull Base: No tonsillar ectopia or mass ispresent. IMPRESSION: 1. No definite acute ischemic or hemorrhagic changes. 2. Evolving areas of hemorrhage within the surgical cavity in the leftposterior frontal convexity with also interval evolution of hemorrhagiccomponent within the centrum semiovale with no definite worsening areas ofhemorrhage or mass effect. Decreased amount of vasogenic edema surroundingthe surgical cavity and the parenchymal hemorrhagic component. 3. Redemonstration of residual tumor along the medial margin of thesurgical cavity and adjacent to the falx with slightly decreased amount ofenhancement. Apparent decrease amount of filling defect within theadjacent superior sagittal sinus, somewhat difficult to evaluate due tomotion. No definite new or worsening areas of masslike enhancement or masseffect. 4. Almost complete resolution of left convexity subdural hemorrhage.Slightly more conspicuous small area of hyperintense T2 signal in the leftthalamus, nonspecific, could represent evolving toxic/metabolic insults orposttreatment changes. CRITICAL RESULT: No. COMMUNICATION: Per this written report. By electronically signing this report, I, the attending physician, attestthat I have personally reviewed the images/data for the aboveexamination(s) and agree with the final edited report. Drafted by Daylin Mccartney DO on 10/13/2024 9:25 AM Final report signed by Harpreet Draper MD on 10/13/2024 12:36 PM Shekhar Ledezma MD IMG MRI PROCEDURES Final Re sult * Osmolality, urine (10/13/2024 2:33 AM EDT) Osmolality, Urine 504 50 - 1,200 mOsm/kg 10/13/2024 4:35 AM EDT [facility] Urine Urine specimen obtained by clean catch procedure / Unknown Non-blood Collection / Unknown 10/13/2024 2:33 AM EDT 10/13/2024 2:51 AM EDT Berto Stanford DO LAB URINE ORDERABLES Final Result Performing Organization Address City/[facility]/ZIP Co de Phone Number [facility] [address] [place] [address] * Sodium, urine, random (10/13/2024 2:33 AM EDT) Sodium, Urine 49 mmol/L 10/13/2024 3:10 AM EDT [facility] Urine Urine specimen obtained by clean catch procedure / Unknown Non-blood Collection / Unknown 10/13/2024 2:33 AM EDT 10/13/2024 2:51 AM EDT Berto Stanford DO LAB URINE ORDERABLES Final Result [facility] [address] [place] [address] * Streptococcus pneumoniae and Legionella Urinary Antigen (10/13/2024 2:33 AM EDT) Legionella pneumophila serogroup 1 Antigen Result (Urine) Negative Negative 10/13/2024 7:15 AM EDT [facility] Streptococcus pneumoniae Antigen Result (Urine) Negative Negative 10/13/2024 7:15 AM EDT [facility] Urine Urine specimen obtained by clean catch procedure / Unknown Non-blood Collection / Unknown 10/13/2024 2:33 AM EDT 10/13/2024 3:21 AM EDT us Shekhar Ledezma MD LAB MICROBIOLOGY - GENERAL ORDERABLES Final Result Performing Organization Address [facility] Co de Phone Number [facility] [address] [place] [address] * Urine Meek Panel (10/13/2024 2:33 AM EDT) Extra Reflex urine culture not indicated 10/13/2024 11:01 AM EDT [facility] Comment: Previously prelim verified as Specimen evaluation in progress on 10/13/2024 at 0402 EDT. Previously prelim verified as Specimen evaluation in progress on 10/13/2024 at 0501 EDT. Previously prelim verified as Specimen evaluation in progress on 10/13/2024 at 0601 EDT. Previously prelim verified as Specimen evaluation in progress on 10/13/2024 at 0701 EDT. Previously prelim verified as Specimen evaluation in progress on 10/13/2024 at 0802 EDT. Previously prelim verified as Specimen evaluation in progress on 10/13/2024 at 0901 EDT. Previously prelim verified as Specimen evaluation in progress on 10/13/2024 at 1001 EDT. Urine Urine specimen obtained by clean catch procedure / Unknown Non-blood Collection / Unknown 10/13/2024 2:33 AM EDT 10/13/2024 2:51 AM EDT us Callie RAMOS LAB URINE ORDERABLES Gracia l Result Performing Organization Address City/[facility]/ZIP Co de Phone Number [facility] [address] [place] [address] * (ABNORMAL) Urinalysis with reflex microscopic (Culture NOT Included) (10/13/2024 2:33 AM EDT) Color, Urine Yellow LAB URINALYSIS - AUTOMATED METHOD 10/13/2024 2:45 AM EDT [facility] Clarity, Urine Cloudy LAB URINALYSIS - AUTOMATED METHOD 10/13/2024 2:45 AM EDT [facility] Spec Percy, Urine >1.030(H) 1.005 - 1.030 LAB URINALYSIS - AUTOMATED METHOD 10/13/2024 2:45 AM EDT [facility] pH, Urine 6.0 5.0 - 8.0 LAB URINALYSIS - AUTOMATED METHOD 10/13/2024 2:45 AM EDT [facility] Protein, Urine Trace(A) Negative mg/dL LAB URINALYSIS - AUTOMATED METHOD 10/13/2024 2:45 AM EDT [facility] Glucose, Urine >=1000(A) Negative mg/dL LAB URINALYSIS - AUTOMATED METHOD 10/13/2024 2:45 AM EDT [facility] Ketones, Urine Negative Negative mg/dL LAB URINALYSIS - AUTOMATED METHOD 10/13/2024 2:45 AM EDT [facility] Blood, Urine Negative Negative LAB URINALYSIS - AUTOMATED METHOD 10/13/2024 2:45 AM EDT [facility] Bilirubin, Urine Negative Negative LAB URINALYSIS - AUTOMATED METHOD 10/13/2024 2:45 AM EDT [facility] Urobilinogen, Urine 1.0 0.2 to 1.0 mg/dL LAB URINALYSIS - AUTOMATED METHOD 10/13/2024 2:45 AM EDT [facility] Leukocytes, Urine Negative Negative LAB URINALYSIS - AUTOMATED METHOD 10/13/2024 2:45 AM EDT [facility] Nitrite, Urine Negative Negative LAB URINALYSIS - AUTOMATED METHOD 10/13/2024 2:45 AM EDT [facility] Urine Urine specimen obtained by clean catch procedure / Unknown Non-blood Collection / Unknown 10/13/2024 2:33 AM EDT 10/13/2024 2:40 AM EDT us Callie RAMOS LAB URINE ORDERABLES Gracia albarado Result [facility] [address] [place] [address] * Phosphorus (10/13/2024 1:26 AM EDT) Phosphorus, Plasma 3.8 2.5 - 4.5 mg/dL 10/13/2024 1:51 AM EDT [facility] Blood Venous blood specimen / Unknown Venipuncture / Unknown 10/13/2024 1:26 AM EDT 10/13/2024 1:29 AM EDT Berto M Stanford DO LAB BLOOD ORDERABLES Final Result Performing Organization Address City/[facility]/ZIP Co de Phone Number [facility] [address] [place] [address] * Magnesium, Plasma (10/13/2024 1:26 AM EDT) Magnesium, Plasma 2.2 1.9 - 2.4 mg/dL 10/13/2024 1:51 AM EDT [facility] Blood Venous blood specimen / Unknown Venipuncture / Unknown 10/13/2024 1:26 AM EDT 10/13/2024 1:29 AM EDT Berto Baumon LAB BLOOD ORDERABLES Final Result Performing Organization Address City/[facility] Co de Phone Number [facility] [address] [place] [address] * (ABNORMAL) Comprehensive metabolic panel (10/13/2024 1:26 AM EDT) Glucose, Plasma 90 74 - 99 mg/dL 10/13/2024 1:51 AM EDT [facility] BUN, Plasma 21 8 - 23 mg/dL 10/13/2024 1:51 AM EDT [facility] Creatinine, Plasma 0.69 0.60 - 1.10 mg/dL 10/13/2024 1:51 AM EDT [facility] BUN/Creatinine Ratio 30 10/13/2024 1:51 AM EDT [facility] Sodium, Plasma 135(L) 136 - 145 mmol/L 10/13/2024 1:51 AM EDT [facility] Potassium, Plasma 3.4(L) 3.6 - 4.9 mmol/L 10/13/2024 1:51 AM EDT [facility] Chloride, Plasma 99 97 - 107 mmol/L 10/13/2024 1:51 AM EDT [facility] CO2, Plasma 27 22 - 29 mmol/L 10/13/2024 1:51 AM EDT [facility] Anion Gap 9 6 - 16 mmol/L 10/13/2024 1:51 AM EDT [facility] Total Calcium, Plasma 8.3(L) 8.9 - 10.2 mg/dL 10/13/2024 1:51 AM EDT [facility] Total Protein 5.5(L) 6.3 - 7.9 g/dL 10/13/2024 1:51 AM EDT [facility] Albumin, Plasma 2.9(L) 3.5 - 5.2 g/dL 10/13/2024 1:51 AM EDT [facility] AST, Plasma 17 10 - 35 U/L 10/13/2024 1:51 AM EDT [facility] ALT, Plasma 25 10 - 35 U/L 10/13/2024 1:51 AM EDT [facility] Alkaline Phosphatase, Plasma 63 46 - 142 U/L 10/13/2024 1:51 AM EDT [facility] Total Bilirubin, Plasma 0.6 0.2 - 1.1 mg/dL 10/13/2024 1:51 AM EDT [facility] eGFRcr 97.7 mL/min/1.7 3m*2 10/13/2024 1:51 AM EDT [facility] Comment:Reported eGFRcr in m L/min/1.73m2 is based the CKD-EPI 2020 equation that does not use a race coefficient. Blood Venous blood specimen / Unknown Venipuncture / Unknown 10/13/2024 1:26 AM EDT 10/13/2024 1:29 AM EDT us Berto Stanford DO LAB BLOOD ORDERABLES Final Result [facility] [address] [place] [address] * (ABNORMAL) CBC and Differential (10/13/2024 1:26 AM EDT) WBC Count 0.53(LL) 3.70 - 10.30 10*3/uL LAB HEMATOLOGY METHOD 10/13/2024 3:38 AM EDT [facility] RBC Count 3.32(L) 3.90 - 5.20 10*6/uL LAB HEMATOLOGY METHOD 10/13/2024 3:38 AM EDT [facility] HGB 10.1(L) 11.2 - 15.7 g/dL LAB HEMATOLOGY METHOD 10/13/2024 3:38 AM EDT [facility] HCT 31.3(L) 34.0 - 45.0 % LAB HEMATOLOGY METHOD 10/13/2024 3:38 AM EDT [facility] Platelet Count 41(L) 155 - 369 10*3/uL LAB HEMATOLOGY METHOD 10/13/2024 3:38 AM EDT [facility] MCV 94 79 - 98 fL LAB HEMATOLOGY METHOD 10/13/2024 3:38 AM EDT [facility] MCH 30.4 26.0 - 32.0 pg LAB HEMATOLOGY METHOD 10/13/2024 3:38 AM EDT [facility] MCHC 32.3 30.7 - 35.5 g/dL LAB HEMATOLOGY METHOD 10/13/2024 3:38 AM EDT [facility] RDW 15.0(H) 11.5 - 14.5 % LAB HEMATOLOGY METHOD 10/13/2024 3:38 AM EDT [facility] MPV 9.1 8.8 - 12.5 fL LAB HEMATOLOGY METHOD 10/13/2024 3:38 AM EDT [facility] nRBC 0.0 <=0.0 per 100 WBCs LAB HEMATOLOGY METHOD 10/13/2024 3:38 AM EDT [facility] Differential Type Automated LAB HEMATOLOGY METHOD 10/13/2024 3:38 AM EDT [facility] Neutrophils % 6 % LAB HEMATOLOGY METHOD 10/13/2024 3:38 AM EDT [facility] Lymphocytes % 90 % LAB HEMATOLOGY METHOD 10/13/2024 3:38 AM EDT [facility] Monocytes % 2 % LAB HEMATOLOGY METHOD 10/13/2024 3:38 AM EDT [facility] Eosinophils % 0 % LAB HEMATOLOGY METHOD 10/13/2024 3:38 AM EDT [facility] Basophils % 2 % LAB HEMATOLOGY METHOD 10/13/2024 3:38 AM EDT [facility] Immature Granulocytes % 0 % LAB HEMATOLOGY METHOD 10/13/2024 3:38 AM EDT [facility] Neutrophils Absolute 0.03(LL) 1.60 - 6.10 10*3/uL LAB HEMATOLOGY METHOD 10/13/2024 3:38 AM EDT [facility] Lymphocytes Absolute 0.48(L) 1.20 - 3.90 10*3/uL LAB HEMATOLOGY METHOD 10/13/2024 3:38 AM EDT [facility] Monocytes Absolute 0.01(L) 0.30 - 0.90 10*3/uL LAB HEMATOLOGY METHOD 10/13/2024 3:38 AM EDT [facility] Eosinophils Absolute 0.00 0.00 - 0.50 10*3/uL LAB HEMATOLOGY METHOD 10/13/2024 3:38 AM EDT [facility] Basophils Absolute 0.01 0.00 - 0.10 10*3/uL LAB HEMATOLOGY METHOD 10/13/2024 3:38 AM EDT [facility] Immature Granulocytes Absolute 0.00 0.00 - 0.06 10*3/uL LAB HEMATOLOGY METHOD 10/13/2024 3:38 AM EDT [facility] Blood Venous blood specimen / Unknown Venipuncture / Unknown 10/13/2024 1:26 AM EDT 10/13/2024 1:29 AM EDT Narrative [facility] - 10/13/2024 3:38 AM EDT Therapeutic decision making should be based on absolute values, rather than percentages. Berto Stanford DO LAB BLOOD ORDERABLES Final Result [facility] [address] [place] [address] * Methicillin Resistant Staphylococcus aureus (MRSA) by PCR (10/13/2024 12:47 AM EDT) Methicillin Resistant Staphylococcus aureus (MRSA) by PCR Not Detected Not Detected 10/13/2024 3:16 AM EDT [facility] Swab Both anterior nares / Unknown Non-blood Collection / Unknown 10/13/2024 12:47 AM EDT 10/13/2024 1:57 AM EDT Narrative [facility] - 10/13/2024 3:16 AM EDT This test is FDA approved for use with nares swab specimens using the eSwabs. This test is used for clinical purposes. It should not be regarded as investigational or for research. This laboratory is certified under the Clinical Laboratory improvement Amendments of 1988 (CLIA-88 as qualified to perform high complexity clinical laboratory testing. Berto Stanford DO LAB MICROBIOLOGY - GENERAL ORDERABLES Final Result Performing Organization Address City/[facility]/ZIP Co de Phone Number [facility] [address] [place] [address] * (ABNORMAL) POCT glucose meter (10/12/2024 11:44 PM EDT) [facility] POCT Glucose 103(H) 74 - 99 mg/dL 10/12/2024 11:46 PM EDT [facility] Comment:Accuracy of a glucos e result obtained from a capillary whole blood specimen relies upon adequate, non-compromised capillary blood flow. If the capillary glucose result is not consistent with the patient's clinical signs and symptoms, glucose testing should be repeated with either an arterial or venous sample on the glucometer or sent to the main labortory for testing. Comment 10/12/2024 11:46 PM EDT [facility] Electrocardiographic Technician ID Carlos Baez 10/12/2024 11:46 PM EDT [facility] Device ID [id number] 10/12/2024 11:46 PM EDT [facility] Specimen Type POC Capillary 10/12/2024 11:46 PM EDT [facility] Blood Capillary blood specimen / Unknown 10/12/2024 11:44 PM EDT 10/12/2024 11:46 PM EDT Berto Stanford DO LAB POINT OF CARE TEST DOCKED DEVICE UNSOLICITED RESULTS Final Result Performing Organization Address [facility] Co de Phone Number [facility] [address] [place] [address] * Anti Xa Level Low Molecular Weight (10/12/2024 10:37 PM EDT) Pathologist [facility] Anti Xa Level Low Molecular Weight Heparin 1.20 <2.00 IU/mL 10/12/2024 11:52 PM EDT [facility] Blood Venous blood specimen / Unknown Venipuncture / Unknown 10/12/2024 10:37 PM EDT 10/12/2024 10:43 PM EDT Narrative [facility] - 10/12/2024 11:52 PM EDT Therapeutic Range: LMWH enoxaparin 1mg/kg/dose, 12hrs - peak (3-5 hours after dose): 0.5 - 1.0 IU/mL LMWH enoxaparin 1.5mg/kg/dose, 24hrs - peak (3-5 hours after dose): 1.0 - 2.0 IU/mL LMWH enoxaparin prophylaxis: Not established us Shekhar Ledezma MD LAB BLOOD ORDERABLES Final Result [facility] [address] [place] [address] * (ABNORMAL) POCT glucose meter (10/12/2024 9:21 PM EDT) [facility] POCT Glucose 189(H) 74 - 99 mg/dL 10/12/2024 9:22 PM EDT [facility] Comment:Accuracy of a glucos e result obtained from a capillary whole blood specimen relies upon adequate, non-compromised capillary blood flow. If the capillary glucose result is not consistent with the patient's clinical signs and symptoms, glucose testing should be repeated with either an arterial or venous sample on the glucometer or sent to the main labortory for testing. Comment 10/12/2024 9:22 PM EDT [facility] Electrocardiographic Technician ID Carlos Baez 10/12/2024 9:22 PM EDT [facility] Device ID [id number] 10/12/2024 9:22 PM EDT [facility] Specimen Type POC Capillary 10/12/2024 9:22 PM EDT [facility]ALTH[facility] Blood Capillary blood specimen / Unknown 10/12/2024 9:21 PM EDT 10/12/2024 9:22 PM EDT us Shekhar Ledezma MD LAB POINT OF CARE T EST DOCKED DEVICE UNSOLICITED RESULTS Final Result Performing Organization Address City/[facility]/ZIP Co de Phone Number [facility] [address] [place] [address] * (ABNORMAL) POCT glucose meter (10/12/2024 8:49 PM EDT) [facility] POCT Glucose 56(L) 74 - 99 mg/dL 10/12/2024 8:50 PM EDT [facility] Comment:Accuracy of a glucos e result obtained from a capillary whole blood specimen relies upon adequate, non-compromised capillary blood flow. If the capillary glucose result is not consistent with the patient's clinical signs and symptoms, glucose testing should be repeated with either an arterial or venous sample on the glucometer or sent to the main labortory for testing. Comment 10/12/2024 8:50 PM EDT [facility]ALTHC[facility] LAB Electrocardiographic Technician ID Carlos Baez 10/12/2024 8:50 PM EDT [facility]ALTHCARE LAB Device ID [id number] 10/12/2024 8:50 PM EDT [facility]ALTHCARE LAB Specimen Type POC Capillary 10/12/2024 8:50 PM EDT [facility]ALTH[facility] Blood Capillary blood specimen / Unknown 10/12/2024 8:49 PM EDT 10/12/2024 8:50 PM EDT Shekhar Ledezma MD LAB POINT OF CARE T EST DOCKED DEVICE UNSOLICITED RESULTS Final Result Performing Organization Address City/[facility] Co de Phone Number [facility] [address] [place] [address] * ECG Adult (10/12/2024 6:17 PM EDT) [facility] EKG DIAGNOSIS CLASS Abnormal MUSE ECG Ventricular Rate 151 BPM MUSE ECG Atrial Rate 375 BPM MUSE ECG QRSD Interval 90 ms MUSE ECG QT Interval 298 ms MUSE ECG QTC Interval 472 ms MUSE ECG P Carmen 112 degrees MUSE ECG R Carmen -10 degrees MUSE ECG T Wave Carmen 72 degrees MUSE ECG Diagnosis Atrial fibrillation with rapid ventricular response MUSE ECG Diagnosis RSR' or QR pattern in V1 suggests right ventricular conduction delay MUSE ECG Diagnosis Nonspecific ST abnormality MUSE ECG Diagnosis Abnormal ECG MUSE ECG Diagnosis MUSE ECG Diagnosis Confirmed by Juwan Arevalo ([id number]) on 10/13/2024 10:53:25 AM MUSE ECG 10/12/2024 6:17 PM EDT 10/13/2024 10:53 AM EDT us Shekhar Ledezma MD ECG ORDERABLES Final Resul t MUSE ECG * CT Abdomen Pelvis w IV Contrast (10/12/2024 5:48 PM EDT) Anatomical Region Laterality Modality Abdomen, Pelvis Computed Tomogra phy Impressions 10/12/2024 10:02 PM EDT 1. No acute findings. ATTENDING COMMENT: There are mild opacities within the left lung base which may represent atelectasis or mild aspiration/airspace disease in the correct clinical setting. CRITICAL RESULT: No. COMMUNICATION: Per this written report. Preliminary report signed by Silas Guidry MD on 10/12/2024 7:11 PM By electronically signing this report, I, the attending physician, attest that I have personally reviewed the images/data for the above examination(s) and agree with the final edited report. Drafted by Silas Guidry MD on 10/12/2024 7:06 PM Final report signed by Talisha Mo MD on 10/12/2024 10:02 PM Narrative 10/12/2024 10:02 PM EDT CLINICAL INDICATION: fever, small cell lung cancer, abdominal pain LLQ and LUQ, sepsis TECHNIQUE: Imaging of the abdomen and pelvis was performed, from lung bases through pubic symphysis, using spiral technique, following administration of IV contrast, Omnipaque 300, 100 mL. Delayed (excretory phase) images were performed through the kidneys. Reformatted images in the coronal and sagittal planes were generated from the axial data set to facilitate diagnostic accuracy. Total DLP (Dose-Length Product): 3165.90 mGy.cm. Please note: The reported value represents the total of one or more individual components during the CT acquisition on this date and at this time, and as such, the same value may appear in more than one CT report depending on the interpreting/reporting physicians. COMPARISON: 09/01/2024 CT FINDINGS: Lung Bases: Dependent atelectasis. Plantar calcifications. Liver/Gallbladder/Biliary system: The liver demonstrates homogeneous enhancement. Scattered calcifications. Normal Gallbladder. No intra- or extra-hepatic biliary ductal dilatation. Spleen: Splenic granuloma. Pancreas: The pancreas enhances homogeneously. Adrenals: The adrenals are morphologically unremarkable. Kidneys: Redemonstrated numerous bilateral cysts, right greater than left. The largest of these imaging characteristics consistent with simple cysts. Multiple others are too small to characterize. The kidneys demonstrate symmetric nephrogram and excretion. No renal or ureteral calculi. No hydronephrosis. Bowel/Mesentery: The small bowel loops are not dilated. The large bowel loops are not dilated. Sigmoid diverticulosis without evidence of diverticulitis. Vessels/Lymph Nodes: Diffuse atherosclerotic changes of the abdominal aorta and bilateral iliacs. There is moderate narrowing of the origin of the SMA. No lymphadenopathy within the abdomen or pelvis. Fluid Survey: No free fluid in the abdomen. No free fluid in the pelvis. Pelvis: The pelvic viscera are unremarkable. Prior tubal ligation. Body Wall: Normal. Bones: No acute fracture. Multilevel degenerative changes of the spine. Procedure Note True, Talisha Whittaker MD - 10/12/2024 CLINICAL INDICATION: fever, small cell lung cancer, abdominal pain LLQ and LUQ, sepsis TECHNIQUE: Imaging of the abdomen and pelvis was performed, from lung bases throughpubic symphysis, using spiral technique, following administration of IVcontrast, Omnipaque 300, 100 mL. Delayed (excretory phase) images wereperformed through the kidneys. Reformatted images in the coronal andsagittal planes were generated from the axial data set to facilitatediagnostic accuracy. Total DLP (Dose-Length Product): 3165.90 mGy.cm. Please note: The reportedvalue represents the total of one or more individual components during theCT acquisition on this date and at this time, and as such, the same valuemay appear in more than one CT report depending on theinterpreting/reporting physicians. COMPARISON: 09/01/2024 CT FINDINGS: Lung Bases: Dependent atelectasis. Plantar calcifications. Liver/Gallbladder/Biliary system: The liver demonstrates homogeneousenhancement. Scattered calcifications. Normal Gallbladder. No intra- orextra-hepatic biliary ductal dilatation. Spleen: Splenic granuloma. Pancreas: The pancreas enhances homogeneously. Adrenals: The adrenals are morphologically unremarkable. Kidneys: Redemonstrated numerous bilateral cysts, right greater than left.The largest of these imaging characteristics consistent with simple cysts.Multiple others are too small to characterize. The kidneys demonstratesymmetric nephrogram and excretion. No renal or ureteral calculi. Nohydronephrosis. Bowel/Mesentery: The small bowel loops are not dilated. The large bowelloops are not dilated. Sigmoid diverticulosis without evidence ofdiverticulitis. Vessels/Lymph Nodes: Diffuse atherosclerotic changes of the abdominalaorta and bilateral iliacs. There is moderate narrowing of the origin ofthe SMA. No lymphadenopathy within the abdomen or pelvis. Fluid Survey: No free fluid in the abdomen. No free fluid in the pelvis. Pelvis: The pelvic viscera are unremarkable. Prior tubal ligation. Body Wall: Normal. Bones: No acute fracture. Multilevel degenerative changes of the spine. IMPRESSION: 1. No acute findings. ATTENDING COMMENT: There are mild opacities within the left lung base which may representatelectasis or mild aspiration/airspace disease in the correct clinicalsetting. CRITICAL RESULT: No. COMMUNICATION: Per this written report. Preliminary report signed by Silas Guidry MD on 10/12/2024 7:11 PM By electronically signing this report, I, the attending physician, attestthat I have personally reviewed the images/data for the aboveexamination(s) and agree with the final edited report. Drafted by Silas Guidry MD on 10/12/2024 7:06 PM Final report signed by Talisha Mo MD on 10/12/2024 10:02 PM Callie RAMOS IM CT PROCEDURES Final R esult * CT Head wo IV Contrast (10/12/2024 5:48 PM EDT) Anatomical Region Laterality Modality Head Computed Tomogra phy Impressions 10/12/2024 6:59 PM EDT Prior left frontal craniotomy for resection of superior frontal mass. There is residual hyperdense components at the site of resection measuring 2.2 by 2.7 x 1.8 cm (CC by AP by TR) with surrounding subarachnoid hemorrhage. Left frontal extra- axial hyperdense fluid collection measuring up to 8 8 mm likely a a subdural hemorrhage. CRITICAL RESULT: No. COMMUNICATION: Per this written report. Drafted by Julia Hernandez MD on 10/12/2024 6:48 PM Final report signed by Julia Hernandez MD on 10/12/2024 6:59 PM Narrative 10/12/2024 6:59 PM EDT CLINICAL INDICATION: recent craniotomy, fever, rule out abscess TECHNIQUE: Routine contiguous axial CT images of the head were obtained without contrast administration. Total DLP (Dose-Length Product): 3165.90 mGy.cm. Please note: The reported value represents the total of one or more individual components during the CT acquisition on this date and at this time, and as such, the same value may appear in more than one CT report depending on the interpreting/reporting physicians. COMPARISON: September 05, 2024 MR FINDINGS: Prior left frontal craniotomy for resection of superior frontal mass. There is residual hyperdense components at the site of resection measuring 2.2 by 2.7 x 1.8 cm (CC by AP by TR) with surrounding subarachnoid hemorrhage. There is left frontal extra-axial hyperdense fluid collection measuring up to 8 mm. No significant midline shift or mass effect. No territorial infarcts. Similar configuration of the ventricles. No hydrocephalus. Basal cisterns are patent. Left maxillary opacification. Mastoid air cells are clear. Procedure Note Julia Hernandez MD - 10/12/2024 CLINICAL INDICATION: recent craniotomy, fever, rule out abscess TECHNIQUE: Routine contiguous axial CT images of the head were obtained withoutcontrast administration. Total DLP (Dose-Length Product): 3165.90 mGy.cm. Please note: The reportedvalue represents the total of one or more individual components during theCT acquisition on this date and at this time, and as such, the same valuemay appear in more than one CT report depending on theinterpreting/reporting physicians. COMPARISON: September 05, 2024 MR FINDINGS: Prior left frontal craniotomy for resection of superior frontal mass.There is residual hyperdense components at the site of resection measuring2.2 by 2.7 x 1.8 cm (CC by AP by TR) with surrounding subarachnoidhemorrhage. There is left frontal extra-axial hyperdense fluid collectionmeasuring up to 8 mm. No significant midline shift or mass effect. Noterritorial infarcts. Similar configuration of the ventricles. Nohydrocephalus. Basal cisterns are patent. Left maxillary opacification.Mastoid air cells are clear. IMPRESSION: Prior left frontal craniotomy for resection of superior frontal mass.There is residual hyperdense components at the site of resection measuring2.2 by 2.7 x 1.8 cm (CC by AP by TR) with surrounding subarachnoidhemorrhage. Left frontal extra- axial hyperdense fluid collection measuringup to 8 8 mm likely a a subdural hemorrhage. CRITICAL RESULT: No. COMMUNICATION: Per this written report. Drafted by Julia Hernandez MD on 10/12/2024 6:48 PM Final report signed by Julia Hernandez MD on 10/12/2024 6:59 PM us Callie RAMOS IMG CT PROCEDURES Final R esult * XR Chest 1 View (10/12/2024 5:41 PM EDT) Anatomical Region Laterality Modality Chest Digital Radiogra phy Impressions 10/12/2024 6:01 PM EDT Similar right upper lobe airspace opacities and background scarring CRITICAL RESULT: No. COMMUNICATION: Per this written report. Drafted by Julia Hernandez MD on 10/12/2024 5:58 PM Final report signed by Julia Hernandez MD on 10/12/2024 6:01 PM Narrative 10/12/2024 6:01 PM EDT CLINICAL INDICATION: lung cancer, fever, recent craniotomy TECHNIQUE: XR CHEST 1 VIEW COMPARISON: CT September 01, 2024 FINDINGS: Similar right upper lobe airspace opacities and background scarring. Redemonstrated right suprahilar nodes. Stable cardiac mediastinal contours. No pneumothorax or pleural effusion. No acute osseous abnormality. Procedure Note Julia Hernandez MD - 10/12/2024 CLINICAL INDICATION: lung cancer, fever, recent craniotomy TECHNIQUE: XR CHEST 1 VIEW COMPARISON: CT September 01, 2024 FINDINGS: Similar right upper lobe airspace opacities and background scarring.Redemonstrated right suprahilar nodes. Stable cardiac mediastinalcontours. No pneumothorax or pleural effusion. No acute osseousabnormality. IMPRESSION: Similar right upper lobe airspace opacities and background scarring CRITICAL RESULT: No. COMMUNICATION: Per this written report. Drafted by Julia Hernandez MD on 10/12/2024 5:58 PM Final report signed by Julia Hernandez MD on 10/12/2024 6:01 PM Callie RAMOS IMG XR PROCEDURES Final R esult * Nasopharyngeal Respiratory Panel (10/12/2024 4:54 PM EDT) Nasopharyngeal Respiratory PCR Interpretation Not Detected for all analytes Not Detected for all analytes 10/12/2024 7:53 PM EDT [facility] Swab Nasopharyngeal structure / Unknown Non-blood Collection / Unknown 10/12/2024 4:54 PM EDT 10/12/2024 5:28 PM EDT Narrative [facility] - 10/12/2024 7:53 PM EDT This assay can detect Adenovirus, Coronavirus, Human Metapneumovirus, Human Rhino/Enterovirus, Influenza A, Influenza A H1, Influenza A H1 2009, Influenza A H3, Influenza B, Parainfluenza Virus 1, Parainfluenza Virus 2, Parainfluenza Virus 3, Parainfluenza Virus 4, Respiratory Syncytial Virus A, Respiratory Syncytial Virus B, Chlamydia pneumoniae, and Mycoplasma pneumoniae. Note: This assay does NOT detect SARS/CoV, novel Coronavirus 2019-nCoV, Bordetella pertussis or Bordetella parapertussis. Nasopharyngeal Respiratory PCR Panel is performed using the [employer] instrument. This test is FDA approved for use with Nasopharyngeal swabs only. This test is used for clinical purposes. It should not be regarded as investigational or for research. The [facility] is certified under the Clinical Laboratory Improvement Amendments of 1988 (CLIA-88) as qualified to perform high complexity clinical laboratory testing. us Callie RAMOS LAB MICROBIOLOGY - GENERA L ORDERABLES Final Result [facility] [address] [place] [address] * (ABNORMAL) Osmolality (10/12/2024 4:51 PM EDT) Osmolality, Serum 279(L) 280 - 301 mOsm/Kg 10/13/2024 12:14 AM EDT [facility] Blood Venous blood specimen / Unknown Venipuncture / Unknown 10/12/2024 4:51 PM EDT 10/12/2024 5:09 PM EDT us Berto Stanford DO LAB BLOOD ORDERABLES Final Result [facility] [address] [place] [address] * Morphology (10/12/2024 4:51 PM EDT) Pathologist [facility] RBC Morphology Slide Reviewed LAB HEMATOLOGY METHOD 10/12/2024 7:25 PM EDT [facility] Teardrop Cells Present LAB HEMATOLOGY METHOD 10/12/2024 7:25 PM EDT [facility] Platelet Estimate Platelet smear estimate consistent with automated count LAB HEMATOLOGY METHOD 10/12/2024 7:25 PM EDT [facility] Blood Venous blood specimen / Unknown Venipuncture / Unknown 10/12/2024 4:51 PM EDT 10/12/2024 5:09 PM EDT us Callie Samuel PA LAB BLOOD ORDERABLES Gracia l Result [facility] [address] [place] [address] * (ABNORMAL) Manual Differential (10/12/2024 4:51 PM EDT) Pathologist [facility] Blasts % 0 % LAB HEMATOLOGY METHOD 10/12/2024 7:25 PM EDT [facility] Promyelocytes % 0 % LAB HEMATOLOGY METHOD 10/12/2024 7:25 PM EDT [facility] Myelocytes % 0 % LAB HEMATOLOGY METHOD 10/12/2024 7:25 PM EDT [facility] Metamyelocytes % 0 % LAB HEMATOLOGY METHOD 10/12/2024 7:25 PM EDT [facility] Neutrophils % 3 % LAB HEMATOLOGY METHOD 10/12/2024 7:25 PM EDT [facility] Lymphocytes % 90 % LAB HEMATOLOGY METHOD 10/12/2024 7:25 PM EDT [facility] Reactive Lymphocytes % 2 % LAB HEMATOLOGY METHOD 10/12/2024 7:25 PM EDT [facility] Monocytes % 1 % LAB HEMATOLOGY METHOD 10/12/2024 7:25 PM EDT [facility] Eosinophils % 2 % LAB HEMATOLOGY METHOD 10/12/2024 7:25 PM EDT [facility] Basophils % 2 % LAB HEMATOLOGY METHOD 10/12/2024 7:25 PM EDT [facility] Blasts Absolute 0.00 10*3/UL LAB HEMATOLOGY METHOD 10/12/2024 7:25 PM EDT [facility] Promyelocytes Absolute 0.00 10*3/uL LAB HEMATOLOGY METHOD 10/12/2024 7:25 PM EDT [facility] Myelocytes Absolute 0.00 10*3/uL LAB HEMATOLOGY METHOD 10/12/2024 7:25 PM EDT [facility] Metamyelocytes Absolute 0.00 10*3/uL LAB HEMATOLOGY METHOD 10/12/2024 7:25 PM EDT [facility] Neutrophils Absolute 0.03(LL) 1.60 - 6.10 10*3/uL LAB HEMATOLOGY METHOD 10/12/2024 7:25 PM EDT [facility] Lymphocytes Absolute 0.76(L) 1.20 - 3.90 10*3/uL LAB HEMATOLOGY METHOD 10/12/2024 7:25 PM EDT [facility] Reactive Lymphocytes Absolute 0.02 10*3/uL LAB HEMATOLOGY METHOD 10/12/2024 7:25 PM EDT [facility] Monocytes Absolute 0.01(L) 0.30 - 0.90 10*3/uL LAB HEMATOLOGY METHOD 10/12/2024 7:25 PM EDT [facility] Eosinophils Absolute 0.02 0.00 - 0.50 10*3/uL LAB HEMATOLOGY METHOD 10/12/2024 7:25 PM EDT [facility] Basophils Absolute 0.02 0.00 - 0.10 10*3/uL LAB HEMATOLOGY METHOD 10/12/2024 7:25 PM EDT [facility] Blood Venous blood specimen / Unknown Venipuncture / Unknown 10/12/2024 4:51 PM EDT 10/12/2024 5:09 PM EDT [employer] LAB BLOOD ORDERABLES Gracia l Result Performing Organization Address City/[facility]/ZIP Co de Phone Number [facility] [address] [place] [address] * Lactic acid, venous (10/12/2024 4:51 PM EDT) Lactate, Venous, Whole Blood 1.2 0.5 - 2.2 mmol/L LAB HEMATOLOGY METHOD 10/12/2024 5:22 PM EDT [facility] Blood Venous blood specimen / Unknown Venipuncture / Unknown 10/12/2024 4:51 PM EDT 10/12/2024 5:17 PM EDT [facility] LAB BLOOD ORDERABLES Gracia l Result Performing Organization Address [facility] Co de Phone Number [facility] [address] [place] [address] * Blood Culture (Aerobic/Anaerobet Set) (10/12/2024 4:51 PM EDT) Culture No growth at day 5 10/17/2024 6:01 PM EDT [facility] Blood Structure of antecubital vein / Unknown Venipuncture / Unknown 10/12/2024 4:51 PM EDT 10/12/2024 5:14 PM EDT Narrative [facility] - 10/17/2024 6:01 PM EDT Low blood volume submitted, results may be compromised [facility] [employer] LAB MICROBIOLOGY - GENERA L ORDERABLES Final Result Performing Organization Address City/[facility]/ZIP Co de Phone Number [facility] [address] [place] [address] * Blood Culture (Aerobic/Anaerobet Set) (10/12/2024 4:51 PM EDT) Culture No growth at day 5 10/17/2024 6:01 PM EDT [facility] Blood Structure of left hand / Unknown Venipuncture / Unknown 10/12/2024 4:51 PM EDT 10/12/2024 5:14 PM EDT Narrative [facility] - 10/17/2024 6:01 PM EDT Low blood volume submitted, results may be compromised us Callie A [employer] LAB MICROBIOLOGY - GENERA L ORDERABLES Final Result Performing Organization Address [facility] Co de Phone Number [facility] [address] [place] [address] * (ABNORMAL) Procalcitonin (10/12/2024 4:51 PM EDT) [facility] Signature Procalcitonin, Plasma 0.69(H) <0.09 ng/mL 10/12/2024 5:39 PM EDT [facility] Blood Venous blood specimen / Unknown Venipuncture / Unknown 10/12/2024 4:51 PM EDT 10/12/2024 5:09 PM EDT Narrative [facility] - 10/12/2024 5:39 PM EDT Procalcitonin concentrations in healthy individuals are <0.09 ng/mL. Published data support the following interpretive risk assessment: An elevated procalcitonin result does not always indicate sepsis. Various non-infectious conditions are known to increase procalcitonin. Results should be considered in the context of clinical symptoms and other laboratory tests. Procalcitonin >2.0 ng/mL: Concentrations >2.0 ng/mL on the first day of ICU admission are associated with a higher risk of progression to severe sepsis and/or septic shock. The change in PCT over time may help predict 28 day mortality risk. Please consult www.knwuls-jws-[email or web address] for more information. Test performed at [facility], [facility]. us Callie A [employer] LAB BLOOD ORDERABLES Gracia l Result Performing Organization Address City/[facility]/ZIP Co de Phone Number [facility] [address] [place] [address] * (ABNORMAL) C-Reactive protein (10/12/2024 4:51 PM EDT) CRP, Plasma 90.1(H) <=8.0 mg/L 10/12/2024 5:38 PM EDT [facility] Blood Venous blood specimen / Unknown Venipuncture / Unknown 10/12/2024 4:51 PM EDT 10/12/2024 5:09 PM EDT Narrative [facility] - 10/12/2024 5:38 PM EDT This CRP test is appropriate for assessment of infection, systemic inflammation and/or tissue injury. To assess cardiovascular disease risk order high sensitivity CRP (CRPH). [facility] LAB BLOOD ORDERABLES Gracia l Result Performing Organization Address City/[facility]/ZIP Co de Phone Number [facility] [address] [place] [address] * Phosphorus (10/12/2024 4:51 PM EDT) [facility] Phosphorus, Plasma 2.8 2.5 - 4.5 mg/dL 10/12/2024 5:38 PM EDT [facility] Blood Venous blood specimen / Unknown Venipuncture / Unknown 10/12/2024 4:51 PM EDT 10/12/2024 5:09 PM EDT [facility] LAB BLOOD ORDERABLES Gracia l Result Performing Organization Address City/[facility]/ZIP Co de Phone Number [facility] [address] [place] [address] * (ABNORMAL) Magnesium (10/12/2024 4:51 PM EDT) Pathologist [facility] Magnesium, Plasma 1.2(L) 1.9 - 2.4 mg/dL 10/12/2024 5:38 PM EDT [facility] Blood Venous blood specimen / Unknown Venipuncture / Unknown 10/12/2024 4:51 PM EDT 10/12/2024 5:09 PM EDT us Callie Samuel PA LAB BLOOD ORDERABLES Gracia l Result [facility] [address] [place] [address] * (ABNORMAL) CMP (10/12/2024 4:51 PM EDT) Glucose, Plasma 110(H) 74 - 99 mg/dL 10/12/2024 5:38 PM EDT [facility] BUN, Plasma 27(H) 8 - 23 mg/dL 10/12/2024 5:38 PM EDT [facility] Creatinine, Plasma 0.99 0.60 - 1.10 mg/dL 10/12/2024 5:38 PM EDT [facility] BUN/Creatinine Ratio 27 10/12/2024 5:38 PM EDT [facility] Sodium, Plasma 131(L) 136 - 145 mmol/L 10/12/2024 5:38 PM EDT [facility] Potassium, Plasma 3.9 3.6 - 4.9 mmol/L 10/12/2024 5:38 PM EDT [facility] Chloride, Plasma 93(L) 97 - 107 mmol/L 10/12/2024 5:38 PM EDT [facility] CO2, Plasma 25 22 - 29 mmol/L 10/12/2024 5:38 PM EDT [facility] Anion Gap 13 6 - 16 mmol/L 10/12/2024 5:38 PM EDT [facility] Total Calcium, Plasma 9.1 8.9 - 10.2 mg/dL 10/12/2024 5:38 PM EDT [facility] Total Protein 6.2(L) 6.3 - 7.9 g/dL 10/12/2024 5:38 PM EDT [facility] Albumin, Plasma 3.4(L) 3.5 - 5.2 g/dL 10/12/2024 5:38 PM EDT [facility] AST, Plasma 17 10 - 35 U/L 10/12/2024 5:38 PM EDT [facility] ALT, Plasma 30 10 - 35 U/L 10/12/2024 5:38 PM EDT [facility] Alkaline Phosphatase, Plasma 74 46 - 142 U/L 10/12/2024 5:38 PM EDT [facility] Total Bilirubin, Plasma 0.9 0.2 - 1.1 mg/dL 10/12/2024 5:38 PM EDT [facility] eGFRcr 64.2 mL/min/1.7 3m*2 10/12/2024 5:38 PM EDT [facility] Comment:Reported eGFRcr in m L/min/1.73m2 is based the CKD-EPI 2020 equation that does not use a race coefficient. Blood Venous blood specimen / Unknown Venipuncture / Unknown 10/12/2024 4:51 PM EDT 10/12/2024 5:09 PM EDT us Callie RAMOS LAB BLOOD ORDERABLES Gracia albarado Result [facility] [address] [place] [address] * (ABNORMAL) CBC w/diff (10/12/2024 4:51 PM EDT) WBC Count 0.84(LL) 3.70 - 10.30 10*3/uL LAB HEMATOLOGY METHOD 10/12/2024 7:25 PM EDT [facility] RBC Count 3.77(L) 3.90 - 5.20 10*6/uL LAB HEMATOLOGY METHOD 10/12/2024 7:25 PM EDT [facility] HGB 11.4 11.2 - 15.7 g/dL LAB HEMATOLOGY METHOD 10/12/2024 7:25 PM EDT [facility] HCT 34.5 34.0 - 45.0 % LAB HEMATOLOGY METHOD 10/12/2024 7:25 PM EDT [facility] Platelet Count 67(L) 155 - 369 10*3/uL LAB HEMATOLOGY METHOD 10/12/2024 7:25 PM EDT [facility] MCV 92 79 - 98 fL LAB HEMATOLOGY METHOD 10/12/2024 7:25 PM EDT [facility] MCH 30.2 26.0 - 32.0 pg LAB HEMATOLOGY METHOD 10/12/2024 7:25 PM EDT [facility] MCHC 33.0 30.7 - 35.5 g/dL LAB HEMATOLOGY METHOD 10/12/2024 7:25 PM EDT [facility] RDW 15.0(H) 11.5 - 14.5 % LAB HEMATOLOGY METHOD 10/12/2024 7:25 PM EDT [facility] MPV 9.0 8.8 - 12.5 fL LAB HEMATOLOGY METHOD 10/12/2024 7:25 PM EDT [facility] nRBC 0.0 <=0.0 per 100 WBCs LAB HEMATOLOGY METHOD 10/12/2024 7:25 PM EDT [facility] Differential Type Manual LAB HEMATOLOGY METHOD 10/12/2024 7:25 PM EDT [facility] Blood Venous blood specimen / Unknown Venipuncture / Unknown 10/12/2024 4:51 PM EDT 10/12/2024 5:09 PM EDT Narrative [facility] - 10/12/2024 7:25 PM EDT Therapeutic decision making should be based on absolute values, rather than percentages. The previously reported component Neutrophils % is no longer being reported.The previously reported component Lymphocytes % is no longer being reported.The previously reported component Monocytes % is no longer being reported.The previously reported component Eosinophils % is no longer being reported.The previously reported component Basophils % is no longer being reported.The previously reported component Immature Granulocytes % is no longer being reported.The previously reported component Absolute Neutrophils is no longer being reported.The previously reported component Absolute Lymphocytes is no longer being reported.The previously reported component Absolute Monocytes is no longer being reported.The previously reported component Absolute Eosinophils is no longer being reported.The previously reported component Absolute Basophils is no longer being reported.The previously reported component Absolute Immature Granulocytes is no longer being reported. us Callie RAMOS LAB BLOOD ORDERABLES Gracia albarado Result [facility] [address] [place] [address] * EKG now - STAT (adult) (10/12/2024 3:39 PM EDT) EKG DIAGNOSIS CLASS Abnormal MUSE ECG Ventricular Rate 114 BPM MUSE ECG Atrial Rate 114 BPM MUSE ECG VT Interval 124 ms MUSE ECG QRSD Interval 84 ms MUSE ECG QT Interval 294 ms MUSE ECG QTC Interval 405 ms MUSE ECG P Carmen 73 degrees MUSE ECG R Carmen -30 degrees MUSE ECG T Wave Carmen 75 degrees MUSE ECG Diagnosis Sinus tachycardia MUSE ECG Diagnosis Possible Right atrial enlargement MUSE ECG Diagnosis Left axis deviation MUSE ECG Diagnosis Incomplete right bundle branch block MUSE ECG Diagnosis Poor R-wave progression MUSE ECG Diagnosis Abnormal ECG MUSE ECG Diagnosis MUSE ECG Diagnosis Confirmed by Jeff Jackson ([id number]) on 10/12/2024 3:46:22 PM MUSE ECG 10/12/2024 3:39 PM EDT 10/12/2024 3:46 PM EDT us Shekhar Ledezma MD ECG ORDERABLES Final Resul t MUSE ECG documented in this encounter Visit Diagnoses Diagnosis Neutropenic fever (CMS/HCC)- Primary Febrile neutropenia (CMS/HCC) Neutropenia, unspecified Hypomagnesemia Disorders of magnesium metabolism Atrial flutter with rapid ventricular response (CMS/HCC) 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 Morbid obesity with BMI of 40.0-44.9, adult (CMS/HCC) Sepsis without acute organ dysfunction (CMS/HCC) Subdural hematoma (CMS/HCC) Subdural hemorrhage Subarachnoid hemorrhage (CMS/HCC) Subarachnoid hemorrhage documented in this encounter Admitting Diagnoses Diagnosis Febrile neutropenia (CMS/HCC) Neutropenia, unspecified documented in this encounter Administered Medications Inactive Administered Medications - up to 3 most recent administrations Medication Order MAR Action Action Date Dose Rate Site acetaminophen (Tylenol) tablet 1,000 mg 1,000 mg, Oral, Once, 1 dose, On Thu10/12/24 at 1640, STAT Given 10/12/2024 5:10 PM EDT 1,000 mg ampicillin (Omnipen) 2 g in sodium chloride 0.9% 100 mL IVPB (vial adapter required) 2 g, Intravenous, Every 4 hours, First dose on Thu10/12/24 at 2230, Until Discontinued, Routine New Bag 10/15/2024 8:14 AM EDT 2 g 220 mL/hr New Bag 10/15/2024 3:24 AM EDT 2 g 220 mL/hr New Bag 10/14/2024 9:22 PM EDT 2 g 220 mL/hr ampicillin-sulbactam (Unasyn) 3 g in sodium chloride 0.9% 100 mL IVPB (vial adapter required) 3 g, Intravenous, Once, 1 dose, On Thu10/12/24 at 1655, Routine New Bag 10/12/2024 5:12 PM EDT 3 g 22 0 mL/hr atorvastatin (Lipitor) tablet 40 mg 40 mg, Oral, Daily, First dose on Thu10/12/24 at 2335, Until Discontinued, Routine Given 10/18/2024 8:56 AM EDT 40 mg Given 10/17/2024 8:36 AM EDT 40 mg Given 10/16/2024 9:31 AM EDT 40 mg benzonatate (Tessalon) capsule 100 mg 100 mg, Oral, 3 times daily PRN, Starting on Thu10/13/24 at 2130, Until Thu10/18/24 at 1448, Routine, cough Given 10/17/2024 8:37 PM EDT 100 mg Given 10/13/2024 9:57 PM EDT 100 mg calcium carbonate (Tums) chewable tablet 500 mg 500 mg, Oral, 4 times daily PRN, Starting on Thu10/13/24 at 0425, Until Thu10/18/24 at 1448, Routine, indigestion, heartburn Given 10/13/2024 5:41 AM EDT 500 mg carvedilol (Coreg) tablet 12.5 mg 12.5 mg, Oral, 2 times daily, First dose on Thu10/14/24 at 2100, Until Discontinued, Routine Given 10/18/2024 8:55 AM EDT 12.5 mg Given 10/17/2024 8:19 PM EDT 12.5 mg Given 10/17/2024 8:36 AM EDT 12.5 mg cefepime (Maxipime) 2 g in sodium chloride 0.9% 100 mL IVPB (vial adapter required) 2 g, Intravenous, Once, 1 dose, On Thu10/12/24 at 1655, Routine New Bag 10/12/2024 6:36 PM EDT 2 g 36 .7 mL/hr cefepime (Maxipime) 2 g in sodium chloride 0.9% 100 mL IVPB (vial adapter required) 2 g, Intravenous, Every 8 hours, First dose on Corrina 10/13/24 at 0230, Until Discontinued, Routine New Bag 10/15/2024 4:13 AM EDT 2 g 36. 7 mL/hr New Bag 10/14/2024 6:11 PM EDT 2 g 36.7 mL/hr New Bag 10/14/2024 3:30 AM EDT 2 g 36.7 mL/hr cefepime (Maxipime) 2 g in sodium chloride 0.9% 100 mL IVPB (vial adapter required) 2 g, Intravenous, Every 8 hours, 9 doses, First dose (after last modification) on Thu10/15/24 at 1045, Last dose on Thu10/18/24 at 0245, Routine New Bag 10/18/2024 3:41 AM EDT 2 g 36.7 mL/hr New Bag 10/17/2024 6:39 PM EDT 2 g 36.7 mL/hr New Bag 10/17/2024 11:30 AM EDT 2 g 36.7 mL/hr dexamethasone (Decadron) tablet 2 mg 2 mg, Oral, Every 12 hours, First dose on Thu10/12/24 at 2335, Until Discontinued Given 10/18/2024 12:06 PM EDT 2 mg Given 10/17/2024 11:00 PM EDT 2 mg Given 10/17/2024 11:29 AM EDT 2 mg dextrose 50 % solution 12.5-25 g 12.5-25 g, Intravenous, Every 15 min PRN, Starting on Thu10/12/24 at 2330, Until Thu10/18/24 at 1448, Routine, low blood sugar dextrose 50 % solution 50 mL 50 mL, Intravenous, As needed, Starting on Thu10/12/24 at 2058, Until Thu10/18/24 at 1448, Routine, low blood sugar Given 10/12/2024 9:00 PM EDT 50 mL dilTIAZem (Cardizem) 125 mg in sodium chloride 0.9 % 125 mL (1 mg/mL) infusion 7.5 mg/hr (7.5 mL/hr), 1 mg/mL, 125 mL, Intravenous, Titrated, Starting on Thu10/14/24 at 2200, Until Thu10/15/24 at 1220, STAT Rate Change - Dual Sign 10/15/2024 12:27 AM EDT 7.5 mg/hr 7.5 mL/hr Rate Change - Dual Sign 10/14/2024 10:15 PM EDT 5 mg/hr 5 mL/hr New Bag 10/14/2024 9:29 PM EDT 2.5 mg/hr 2.5 mL/hr dilTIAZem (Cardizem) bolus from bag 5 mg 5 mg, Intravenous, Every 1 hour PRN, Starting on Thu10/14/24 at 2101, Until 10/15/24 at 1220, Administer over 2 Minutes, Routine, Heart rate > 110 Bolus from Bag 10/15/2024 6:03 AM EDT 5 mg Bolus from Bag 10/15/2024 2:05 AM EDT 5 mg Bolus from Bag 10/14/2024 11:11 PM EDT 5 mg dilTIAZem (Cardizem) injection 20 mg 20 mg, Intravenous, Once, 1 dose, On Thu10/14/24 at 2200, Routine Given 10/14/2024 9:20 PM EDT 20 mg filgrastim-sndz (ZARXIO) injection 480 mcg 480 mcg, Subcutaneous, Every 24 hours, First dose on 10/15/24 at 1145, Until Discontinued, Routine Given 10/17/2024 11:31 AM EDT 480 mcg Left Lower Abdomen Given 10/16/2024 12:32 PM EDT 480 mcg L eft Lower Abdomen Given 10/15/2024 12:44 PM EDT 480 mcg L eft Lower Abdomen FLUoxetine (PROzac) capsule 40 mg 40 mg, Oral, Daily, First dose on Thu10/12/24 at 2335, Until Discontinued Given 10/18/2024 8:56 AM EDT 40 mg Given 10/17/2024 8:36 AM EDT 40 mg Given 10/16/2024 9:31 AM EDT 40 mg gabapentin (Neurontin) capsule 300 mg 300 mg, Oral, 3 times daily, First dose on Thu10/13/24 at 0900, Until Discontinued Given 10/18/2024 8:56 AM EDT 300 mg Given 10/17/2024 8:19 PM EDT 300 mg Given 10/17/2024 3:45 PM EDT 300 mg gadobutrol (Gadavist) injection 11.9 mL 11.9 mL (0.1 mL/kg 119 kg), Intravenous, Once in imaging, 1 dose, Starting on Corrina 10/13/24 at 0622, Until Corrina 10/13/24 at 0631, Routine, Imaging Protocol Orders Given 10/13/2024 6:31 AM EDT 11.9 mL glucagon (human recombinant) injection 1 mg 1 mg, Intramuscular, Every 15 min PRN, Starting on Thu10/12/24 at 2330, Until Thu10/18/24 at 1448, Routine, low blood sugar per Hypoglycemia Prevention and Treatment protocol glucose (Glutose) 40 % oral gel 15-30 grams of glucose 15-30 grams of glucose, Sublingual, Every 15 min PRN, Starting on Thu10/12/24 at 2330, Until Thu10/18/24 at 1448, Routine, low blood sugar, per Hypoglycemia Prevention and Treatment protocol hydrOXYzine HCl (Atarax) tablet 25 mg 25 mg, Oral, Every 12 hours PRN, Starting on Thu10/12/24 at 2330, Until 10/15/24 at 0950, Routine, anxiety Given 10/14/2024 10:25 PM EDT 25 mg hydrOXYzine HCl (Atarax) tablet 25 mg 25 mg, Oral, 3 times daily, First dose (after last modification) on 10/15/24 at 1045, Until Discontinued, Routine Given 10/18/2024 8:56 AM EDT 25 mg Given 10/17/2024 8:19 PM EDT 25 mg Given 10/17/2024 3:45 PM EDT 25 mg insulin glargine-yfgn 100 UNIT/ML injection 15 Units 15 Units, Subcutaneous, Nightly, First dose on Thu10/12/24 at 2335, Until Discontinued, Routine Given 10/16/2024 9:36 PM EDT 15 Units Left Upper Arm (Back ) Given 10/15/2024 8:51 PM EDT 15 Units Le ft Upper Arm (Back) Given 10/14/2024 8:35 PM EDT 15 Units Le ft Lower Abdomen insulin glargine-yfgn 100 UNIT/ML injection 20 Units 20 Units, Subcutaneous, Nightly, First dose (after last modification) on Thu10/17/24 at 2100, Until Discontinued, Routine Given 10/17/2024 8:20 PM EDT 20 Units Left Lower Abdomen insulin lispro (Admelog) 100 units/mL injection - Correction - Standard Dose 0-5 Units, Subcutaneous, 3 times daily with meals, First dose on Thu10/13/24 at 0830, Until Discontinued, Routine Given 10/18/2024 8:56 AM EDT 3 Units Right Upper Arm (Noam k) Given 10/17/2024 6:39 PM EDT 2 Units Le ft Upper Abdomen Given 10/17/2024 12:58 PM EDT 4 Units L eft Upper Arm (Back) insulin lispro (Admelog) injection - Correction - Nighttime Dose 0-3 Units, Subcutaneous, 2 times nightly (2100 & 0300), First dose on Thu10/13/24 at 0300, Until Discontinued, Routine Given 10/18/2024 3:41 AM EDT 1 Units Left Lower Abdomen Given 10/17/2024 8:33 PM EDT 2 Units Le ft Lower Abdomen Given 10/16/2024 9:41 PM EDT 2 Units Le ft Upper Arm (Back) iohexol (OMNIPaque) 300 MG/ML injection 100 mL 100 mL, Intravenous, Once in imaging, 1 dose, Starting on Thu10/12/24 at 1719, Until Thu10/12/24 at 1739, Routine, Imaging Protocol Orders Given 10/12/2024 5:39 PM EDT 100 mL iohexol (OMNIPaque) 300 MG/ML injection 100 mL 100 mL, Intravenous, Once in imaging, 1 dose, Starting on Thu10/13/24 at 2025, Until Thu10/13/24 at 2026, Routine, Imaging Protocol Orders Given 10/13/2024 8:27 PM EDT 100 mL lactated Ringer's infusion 1,000 mL 1,000 mL, Intravenous, Once (Bolus), 1 dose, On Thu10/12/24 at 1640, STAT New Bag 10/12/2024 5:09 PM EDT 1,000 mL lactated Ringer's infusion 1,000 mL 1,000 mL, Intravenous, Once (Bolus), 1 dose, On Thu10/12/24 at 2245, STAT New Bag 10/12/2024 10:51 PM EDT 1,000 mL levETIRAcetam (Keppra) tablet 500 mg 500 mg, Oral, 2 times daily, First dose on Thu10/13/24 at 0235, Until Discontinued, Routine Given 10/18/2024 8:57 AM EDT 500 mg Given 10/17/2024 8:19 PM EDT 500 mg Given 10/17/2024 8:36 AM EDT 500 mg lidocaine (Xylocaine) 1 % injection Intradermal, As needed, Starting on Thu10/14/24 at 1017, Until Thu10/14/24 at 1017, Routine, Intraprocedure Given 10/14/2024 10:17 AM EDT 10 mL magic mouthwash BLM (FIRST-Mouthwash) suspension 15 mL 15 mL, Swish & Spit, 4 times daily before meals and nightly, First dose on Thu10/13/24 at 1200, Until Discontinued, Routine Given 10/18/2024 12:06 PM EDT 15 mL Given 10/18/2024 8:55 AM EDT 15 mL Given 10/17/2024 8:20 PM EDT 15 mL magnesium oxide (Mag-Ox) tablet 400 mg 400 mg, Oral, 2 times daily, First dose on Thu10/13/24 at 0900, Until Discontinued Given 10/18/2024 8:55 AM EDT 400 mg Given 10/17/2024 8:19 PM EDT 400 mg Given 10/17/2024 8:37 AM EDT 400 mg magnesium sulfate IVPB 2 g 2 g, Intravenous, Once, 1 dose, On Thu10/12/24 at 1745, STAT New Bag 10/12/2024 6:45 PM EDT 2 g 25 mL /hr magnesium sulfate IVPB 2 g 2 g, Intravenous, Once, 1 dose, On Thu10/12/24 at 2245, Routine New Bag 10/12/2024 11:21 PM EDT 2 g 2 5 mL/hr melatonin tablet 3 mg 3 mg, Oral, Nightly PRN, Starting on Thu10/12/24 at 2211, Until Thu10/18/24 at 1448, Routine, sleep Given 10/15/2024 8:53 PM EDT 3 mg Given 10/14/2024 10:25 PM EDT 3 mg metoprolol tartrate (Lopressor) injection 5 mg 5 mg, Intravenous, Every 5 min PRN, 3 doses, Starting on Thu10/13/24 at 2114, Until Thu10/14/24 at 2022, Routine, RVR Given 10/14/2024 8:22 PM EDT 5 mg Given 10/14/2024 7:26 PM EDT 5 mg Given 10/13/2024 9:20 PM EDT 5 mg metoprolol tartrate (Lopressor) injection 5 mg 5 mg, Intravenous, Once, 1 dose, On Thu10/14/24 at 2145, Routine Given 10/14/2024 8:55 PM EDT 5 mg mometasone-formoterol (Dulera 200) 200-5 MCG/ACT inhaler 2 puff 2 puff, Inhalation, 2 times daily, First dose on Thu10/13/24 at 0900, Until Discontinued, Routine Given 10/18/2024 8:57 AM EDT 2 puffs Given 10/17/2024 8:32 PM EDT 2 puffs Given 10/17/2024 8:37 AM EDT 2 puffs montelukast (Singulair) tablet 10 mg 10 mg, Oral, Nightly, First dose on Thu10/12/24 at 2335, Until Discontinued, Routine Given 10/17/2024 8:20 PM EDT 10 mg Given 10/16/2024 9:38 PM EDT 10 mg Given 10/15/2024 8:53 PM EDT 10 mg nystatin (Mycostatin) [id number] UNIT/ML suspension 500,000 Units 500,000 Units (5 mL), Swish & Swallow, 4 times daily, 56 doses, First dose on Thu10/13/24 at 1400, Last dose on Thu10/27/24 at 0900, Routine Given 10/18/2024 8:55 AM EDT 500,000 Units Given 10/17/2024 11:00 PM EDT 500,000 Units Given 10/17/2024 3:45 PM EDT 500,000 Units ondansetron (Zofran) 4 MG/5ML solution 4 mg 4 mg, Oral, Every 6 hours PRN, Starting on Thu10/12/24 at 2210, Until Thu10/18/24 at 1448, Routine, nausea, vomiting ondansetron (Zofran) injection 4 mg 4 mg, Intravenous, Once, 1 dose, On Thu10/12/24 at 1640, STAT Given 10/12/2024 5:11 PM EDT 4 mg ondansetron (Zofran) injection 4 mg 4 mg, Intravenous, Every 6 hours PRN, Starting on Thu10/12/24 at 2210, Until Thu10/18/24 at 1448, Routine, vomiting, nausea ondansetron ODT (Zofran-ODT) disintegrating tablet 4 mg 4 mg, Oral, Every 6 hours PRN, Starting on Thu10/12/24 at 2210, Until Thu10/18/24 at 1448, Routine, nausea, vomiting pantoprazole (Protonix) EC tablet 40 mg 40 mg, Oral, Daily, First dose on Thu10/12/24 at 2335, Until Discontinued, Routine Given 10/18/2024 8:56 AM EDT 40 mg Given 10/17/2024 8:37 AM EDT 40 mg Given 10/16/2024 9:31 AM EDT 40 mg polyethylene glycol (Miralax) packet 17 g 17 g, Oral, Daily, First dose on Thu10/12/24 at 2215, Until Discontinued, Routine Given 10/16/2024 9:28 AM EDT 17 g Given 10/15/2024 8:14 AM EDT 17 g Given 10/13/2024 8:21 AM EDT 17 g potassium chloride CR (Klor-Con) ER tablet 40 mEq 40 mEq, Oral, Every 2 hours, 2 doses, First dose on Thu10/13/24 at 0210, Last dose on Thu10/13/24 at 0410, Routine Given 10/13/2024 5:33 AM EDT 40 mEq Given 10/13/2024 3:19 AM EDT 40 mEq rivaroxaban (Xarelto) tablet 20 mg 20 mg, Oral, Daily with dinner, First dose on Thu10/15/24 at 1800, Until Discontinued, Routine Given 10/17/2024 6:40 PM EDT 20 mg Given 10/16/2024 6:49 PM EDT 20 mg Given 10/15/2024 6:03 PM EDT 20 mg senna (Senokot) tablet 17.2 mg 17.2 mg (2 tablet), Oral, Nightly, First dose on Thu10/12/24 at 2215, Until Discontinued, Routine Given 10/15/2024 8:53 PM EDT 17.2 mg Given 10/14/2024 8:25 PM EDT 17.2 mg Given 10/13/2024 9:53 PM EDT 17.2 mg sodium chloride 0.9 % flush 10 mL 10 mL, Intravenous, Every 12 hours, First dose on Thu10/12/24 at 2215, Until Discontinued, Routine Given 10/18/2024 8:57 AM EDT 10 mL Given 10/17/2024 11:05 PM EDT 10 mL Given 10/16/2024 9:40 PM EDT 10 mL sodium chloride 0.9 % flush 10 mL 10 mL, Intravenous, As needed, Starting on Thu10/12/24 at 2207, Until Thu10/18/24 at 1448, Routine, line care Tiotropium Amoret Monohydrate (Spiriva Respimat) 2.5 MCG/ACT inhaler 2 puff 2 puff, Inhalation, Daily, First dose on Thu10/13/24 at 0900, Until Discontinued, Routine Given 10/18/2024 8:58 AM EDT 2 puffs Given 10/16/2024 9:39 AM EDT 2 puffs Given 10/13/2024 8:21 AM EDT 2 puffs tiZANidine (Zanaflex) tablet 2 mg 2 mg, Oral, Nightly, First dose on Thu10/15/24 at 2100, Until Discontinued, Routine Given 10/17/2024 8:19 PM EDT 2 mg Given 10/16/2024 9:38 PM EDT 2 mg Given 10/15/2024 8:53 PM EDT 2 mg vancomycin (Vancocin) 2,500 mg in sodium chloride 0.9 % 500 mL IVPB 2,500 mg (rounded from 2,380 mg = 20 mg/kg 119 kg), Intravenous, Once, 1 dose, On Thu10/12/24 at 1655, at 228 mL/hr, Routine Given 10/12/2024 6:48 PM EDT 2,500 mg 228 mL/hr Vancomycin HCl in NaCl (Vancocin) IVPB 1,000 mg 1,000 mg, Intravenous, Every 12 hours, First dose on Thu10/13/24 at 0600, Until Discontinued, at 250 mL/hr, Routine Given 10/14/2024 6:29 AM EDT 1,000 mg 250 mL/hr Given 10/13/2024 6:20 PM EDT 1,000 mg 250 mL/hr Given 10/13/2024 5:34 AM EDT 1,000 mg 250 mL/hr vancomycin IVPB 1750 mg in 250 mL NS IVPB 1,750 mg, Intravenous, Every 12 hours, First dose (after last modification) on Thu10/14/24 at 1800, Until Discontinued, at 167.4 mL/hr, Routine New Bag 10/15/2024 5:39 AM EDT 1,750 mg 167.4 mL/h r New Bag 10/14/2024 6:10 PM EDT 1,750 mg 167.4 mL/hr documented in this encounter Active and Recently Administered Medications Times are shown in EDT. Scheduled Medication Order 10/16/2024 10/17/2024 10/18/2024 atorvastatin (Lipitor) tablet 40 mg 40 mg, Oral, Daily, First dose on Thu10/12/24 at 2335, Until Discontinued, Routine 0931 (Given - Provider: Quan Chavez) 0836 (Given - Provider: Quan Chavez) 0856 (Given - Provider: Jeni Clark) carvedilol (Coreg) tablet 12.5 mg 12.5 mg, Oral, 2 times daily, First dose on Thu10/14/24 at 2100, Until Discontinued, Routine 0931 (Given - Provider: Quan Chavez)2139 (Given - Provider: Erma Cary RN) 0836 (Given - Provider: Quan Chavez)2019 (Given - Provider: Tim Oneal) 0855 (Given - Provider: Jeni Clark) cefepime (Maxipime) 2 g in sodium chloride 0.9% 100 mL IVPB (vial adapter required) (COMPLETED) 2 g, Intravenous, Every 8 hours, 9 doses, First dose (after last modification) on Thu10/15/24 at 1045, Last dose on Thu10/18/24 at 0245, Routine 0300 (New Bag - Provider: Gladys Steele RN)1230 (New Bag - Provider: Quan Chavez)1850 (New Bag - Provider: Quan Chavez) 0321 (New Bag - Provider: Erma Cary RN)1130 (New Bag - Provider: Quan Chavez)1839 (New Bag - Provider: Quan Chavez) 0341 (New Bag - Provider: Tim Oneal) dexamethasone (Decadron) tablet 2 mg 2 mg, Oral, Every 12 hours, First dose on Thu10/12/24 at 2335, Until Discontinued 1230 (Given - Provider: Quan Chavez)2342 (Given - Provider: Erma Cary RN) 1129 (Given - Provider: Quan Chavez)2300 (Given - Provider: Tim Oneal) 1206 (Given - Provider: Jeni Clark) filgrastim-sndz (ZARXIO) injection 480 mcg (CANCELED) 480 mcg, Subcutaneous, Every 24 hours, First dose on 10/15/24 at 1145, Until Discontinued, Routine 1232 (Given - Provider: Quan Chavez) 1131 (Given - Provider: Quan Chavez) FLUoxetine (PROzac) capsule 40 mg 40 mg, Oral, Daily, First dose on Thu10/12/24 at 2335, Until Discontinued 0931 (Given - Provider: Quan Chavez) 0836 (Given - Provider: Quan Chavez) 0856 (Given - Provider: Jeni Clark) gabapentin (Neurontin) capsule 300 mg 300 mg, Oral, 3 times daily, First dose on Thu10/13/24 at 0900, Until Discontinued 0933 (Given - Provider: Quan Chavez - Comment: barcode not scanned, ripped, i witnessed administration kirsten torres RN)161 (Given - Provider: Quan Chavez)2138 (Given - Provider: Erma Cary RN) 0836 (Given - Provider: Quan Chavez)1545 (Given - Provider: Quan Chavez)2019 (Given - Provider: Tim Oneal) 0856 (Given - Provider: Jeni Clark) hydrOXYzine HCl (Atarax) tablet 25 mg 25 mg, Oral, 3 times daily, First dose (after last modification) on Thu10/15/24 at 1045, Until Discontinued, Routine 0931 (Given - Provider: Quan Chavez)161 (Given - Provider: Quan Chavez)2138 (Given - Provider: Erma Cary RN) 0836 (Given - Provider: Quan Chavez)1545 (Given - Provider: Quan Chavez)2019 (Given - Provider: Tim Oneal) 0856 (Given - Provider: Jeni Clark) insulin glargine-yfgn 100 UNIT/ML injection 15 Units (CANCELED) 15 Units, Subcutaneous, Nightly, First dose on Thu10/12/24 at 2335, Until Discontinued, Routine 2135 (Given - Provider: Erma Cary, JOSE MARTIN) insulin glargine-yfgn 100 UNIT/ML injection 20 Units 20 Units, Subcutaneous, Nightly, First dose (after last modification) on Thu10/17/24 at 2100, Until Discontinued, Routine 2019 (Given - Provider: Tim Oneal) insulin lispro (Admelog) 100 units/mL injection - Correction - Standard Dose 0-5 Units, Subcutaneous, 3 times daily with meals, First dose on Thu10/13/24 at 0830, Until Discontinued, Routine 0929 (Given - Provider: Quan Chavez)1233 (Given - Provider: Quan Chavez)1848 (Given - Provider: Quan Chavez) 0846 (Given - Provider: Quan Chavez)1258 (Given - Provider: Quan Chavez)1839 (Given - Provider: Quan Chavez) 0856 (Given - Provider: Jeni Clark)1230 (Canceled Entry - Provider: Automatic Discharge Provider - Comment: Automatically canceled at discontinue of medication order) insulin lispro (Admelog) injection - Correction - Nighttime Dose 0-3 Units, Subcutaneous, 2 times nightly (2100 & 0300), First dose on Thu10/13/24 at 0300, Until Discontinued, Routine 420 (Not Given - Provider: Gladys Steele RN - Reason: Order parameters not met)2140 (Given - Provider: Erma Cary RN) 034 (Not Given - Provider: Erma Cary RN - Reason: Order parameters not met - Comment: Blood Sugar less than 250 mg/dL.)2032 (Given - Provider: Tim Oneal) 034 (Given - Provider: Tim Oneal) levETIRAcetam (Keppra) tablet 500 mg 500 mg, Oral, 2 times daily, First dose on Thu10/13/24 at 0235, Until Discontinued, Routine 929 (Given - Provider: Quan Chavez)2138 (Given - Provider: Erma Cary RN) 0836 (Given - Provider: Quan Chavez)2019 (Given - Provider: Tim Oneal) 0857 (Given - Provider: Jeni Clark) lidocaine-EPINEPHrine (Xylocaine W/EPI) 1 %[id number] injection 20 mL 20 mL, Infiltration, Once, 1 dose, On Corrina 10/13/24 at 1100, STAT lidocaine-epinephrine -tetracaine (L.E.T.) topical gel 1 Application 1 Application, Topical, Once, 1 dose, On Corrina 10/13/24 at 1100, STAT magic mouthwash BLM (FIRST-Mouthwash) suspension 15 mL 15 mL, Swish & Spit, 4 times daily before meals and nightly, First dose on Corrina 10/13/24 at 1200, Until Discontinued, Routine 0928 (Given - Provider: Quan Chavez)1232 (Given - Provider: Quan Chavez)1615 (Given - Provider: Quan Chavez)2135 (Given - Provider: Erma Cary RN) 0837 (Given - Provider: Quan Chavez)113 (Given - Provider: Quan Chavez)184 (Given - Provider: Quan Chavez)2019 (Given - Provider: Tim Oneal) 0855 (Given - Provider: Jeni Clark)1206 (Given - Provider: Jeni Clark) magnesium oxide (Mag-Ox) tablet 400 mg 400 mg, Oral, 2 times daily, First dose on Corrina 10/13/24 at 0900, Until Discontinued 929 (Given - Provider: Quan Chavez)2138 (Given - Provider: Erma Cary RN) 0837 (Given - Provider: Quan Chavze)2018 (Given - Provider: Tim Oneal) 0855 (Given - Provider: Jeni Clark) mometasone-formoterol (Dulera 200) 200-5 MCG/ACT inhaler 2 puff(Linked Group 1) 2 puff, Inhalation, 2 times daily, First dose on Corrina 10/13/24 at 0900, Until Discontinued, Routine 0938 (Given - Provider: Quan Chavez)2140 (Given - Provider: Erma Cary RN) 0837 (Given - Provider: Quan Chavez)2031 (Given - Provider: Tim Oneal) 0857 (Given - Provider: Jeni Clark) montelukast (Singulair) tablet 10 mg 10 mg, Oral, Nightly, First dose on Thu10/12/24 at 2335, Until Discontinued, Routine 2137 (Given - Provider: Erma Cary RN) 2019 (Given - Provider: Tim Oneal) nystatin (Mycostatin) [id number] UNIT/ML suspension 500,000 Units 500,000 Units (5 mL), Swish & Swallow, 4 times daily, 56 doses, First dose on Corrina 10/13/24 at 1400, Last dose on Thu10/27/24 at 0900, Routine 09 (Given - Provider: Quan Chavez)1446 (Given - Provider: Quan Chavez)1849 (Given - Provider: Quan Chavez)2136 (Given - Provider: Erma Cary RN) 0836 (Given - Provider: Quan Chavez)1545 (Given - Provider: Quan Chavez)1722 (Not Given - Provider: Quan Chavez - Reason: Patient/family refused)2300 (Given - Provider: Tim Oneal) 0855 (Given - Provider: Jeni Clark)1400 (Canceled Entry - Provider: Automatic Discharge Provider - Comment: Automatically canceled at discontinue of medication order) pantoprazole (Protonix) EC tablet 40 mg 40 mg, Oral, Daily, First dose on Thu10/12/24 at 2335, Until Discontinued, Routine 0931 (Given - Provider: Quan Chavez) 0837 (Given - Provider: Quan Chavez) 0856 (Given - Provider: Jeni Clark) polyethylene glycol (Miralax) packet 17 g 17 g, Oral, Daily, First dose on Thu10/12/24 at 2215, Until Discontinued, Routine 0928 (Given - Provider: Quan Chavez) 0951 (Not Given - Provider: Quan Chavez - Reason: Patient/family refused) 0857 (Not Given - Provider: Jeni Clark - Reason: Patient/family refused) rivaroxaban (Xarelto) tablet 20 mg 20 mg, Oral, Daily with dinner, First dose on Thu10/15/24 at 1800, Until Discontinued, Routine 184 (Given - Provider: Quan Chavez) 184 (Given - Provider: Quan Chavez) senna (Senokot) tablet 17.2 mg 17.2 mg (2 tablet), Oral, Nightly, First dose on Thu10/12/24 at 2215, Until Discontinued, Routine 2141 (Not Given - Provider: Erma Cary RN - Reason: Patient/family refused) 2032 (Not Given - Provider: Tim Oneal - Reason: Patient/family refused) sodium chloride 0.9 % flush 10 mL(Linked Group 2) 10 mL, Intravenous, Every 12 hours, First dose on Thu10/12/24 at 2215, Until Discontinued, Routine 0933 (Given - Provider: Quan Chavez)2139 (Given - Provider: Erma Cary RN) 0952 (Canceled Entry - Provider: Quan Chavez)230 (Given - Provider: Tim Oneal) 0857 (Given - Provider: Jeni Clark) Tiotropium Amoret Monohydrate (Spiriva Respimat) 2.5 MCG/ACT inhaler 2 puff(Linked Group 1) 2 puff, Inhalation, Daily, First dose on Corrina 10/13/24 at 0900, Until Discontinued, Routine 0939 (Given - Provider: Quan Chavez - Comment: pt uses home med) 0952 (Not Given - Provider: Quan Chavez - Reason: Hold for condition: must add comment - Comment: pt uses home spiriva) 0858 (Given - Provider: Jeni Clark) tiZANidine (Zanaflex) tablet 2 mg 2 mg, Oral, Nightly, First dose on 10/15/24 at 2100, Until Discontinued, Routine 2137 (Given - Provider: Erma Cary RN) 2018 (Given - Provider: Tim Oneal) PRN Medication Order 10/16/2024 10/17/2024 10/18/2024 benzonatate (Tessalon) capsule 100 mg 100 mg, Oral, 3 times daily PRN, Starting on Thu10/13/24 at 2130, Until Thu10/18/24 at 1448, Routine, cough 2036 (Given - Provider: Tim Oneal) calcium carbonate (Tums) chewable tablet 500 mg 500 mg, Oral, 4 times daily PRN, Starting on Thu10/13/24 at 0425, Until Thu10/18/24 at 1448, Routine, indigestion, heartburn dextrose 50 % solution 12.5-25 g(Linked Group 3) 12.5-25 g, Intravenous, Every 15 min PRN, Starting on Thu10/12/24 at 2330, Until Thu10/18/24 at 1448, Routine, low blood sugar dextrose 50 % solution 50 mL 50 mL, Intravenous, As needed, Starting on Thu10/12/24 at 2058, Until Thu10/18/24 at 1448, Routine, low blood sugar glucagon (human recombinant) injection 1 mg(Linked Group 3) 1 mg, Intramuscular, Every 15 min PRN, Starting on Thu10/12/24 at 2330, Until Thu10/18/24 at 1448, Routine, low blood sugar per Hypoglycemia Prevention and Treatment protocol glucose (Glutose) 40 % oral gel 15-30 grams of glucose(Linked Group 3) 15-30 grams of glucose, Sublingual, Every 15 min PRN, Starting on Thu10/12/24 at 2330, Until Thu10/18/24 at 1448, Routine, low blood sugar, per Hypoglycemia Prevention and Treatment protocol melatonin tablet 3 mg 3 mg, Oral, Nightly PRN, Starting on Thu10/12/24 at 2211, Until Thu10/18/24 at 1448, Routine, sleep ondansetron (Zofran) 4 MG/5ML solution 4 mg(Linked Group 4) 4 mg, Oral, Every 6 hours PRN, Starting on Thu10/12/24 at 2210, Until Thu10/18/24 at 1448, Routine, nausea, vomiting ondansetron (Zofran) injection 4 mg(Linked Group 4) 4 mg, Intravenous, Every 6 hours PRN, Starting on Thu10/12/24 at 2210, Until Thu10/18/24 at 1448, Routine, vomiting, nausea ondansetron ODT (Zofran-ODT) disintegrating tablet 4 mg(Linked Group 4) 4 mg, Oral, Every 6 hours PRN, Starting on Thu10/12/24 at 2210, Until Thu10/18/24 at 1448, Routine, nausea, vomiting sodium chloride 0.9 % flush 10 mL(Linked Group 2) 10 mL, Intravenous, As needed, Starting on Thu10/12/24 at 2207, Until Thu10/18/24 at 1448, Routine, line care Linked Groups Order Group 1: Tiotropium Amoret Monohydrate (Spiriva Respimat) 2.5 MCG/ACT inhaler 2 puffJump to med 2 puff, Inhalation, Daily, First dose on Thu10/13/24 at 0900, Until Discontinued, Routine And mometasone-formoterol (Dulera 200) 200-5 MCG/ACT inhaler 2 puffJump to med 2 puff, Inhalation, 2 times daily, First dose on Thu10/13/24 at 0900, Until Discontinued, Routine Group 2: Insert peripheral IV (COMPLETED) Once, On Thu10/12/24 at 2208, For 1 occurrence And Saline lock IV (COMPLETED) Once, On Thu10/12/24 at 220, For 1 occurrence And sodium chloride 0.9 % flush 10 mLJump to med 10 mL, Intravenous, Every 12 hours, First dose on Thu10/12/24 at 2215, Until Discontinued, Routine And sodium chloride 0.9 % flush 10 mLJump to med 10 mL, Intravenous, As needed, Starting on Thu10/12/24 at 2207, Until Thu10/18/24 at 1448, Routine, line care Group 3: glucose (Glutose) 40 % oral gel 15-30 grams of glucoseJump to med 15-30 grams of glucose, Sublingual, Every 15 min PRN, Starting on Thu10/12/24 at 2330, Until Thu10/18/24 at 1448, Routine, low blood sugar, per Hypoglycemia Prevention and Treatment protocol Or dextrose 50 % solution 12.5-25 gJump to med 12.5-25 g, Intravenous, Every 15 min PRN, Starting on Thu10/12/24 at 2330, Until Thu10/18/24 at 1448, Routine, low blood sugar Or glucagon (human recombinant) injection 1 mgJump to med 1 mg, Intramuscular, Every 15 min PRN, Starting on Thu10/12/24 at 2330, Until Thu10/18/24 at 1448, Routine, low blood sugar per Hypoglycemia Prevention and Treatment protocol Group 4: ondansetron ODT (Zofran-ODT) disintegrating tablet 4 mgJump to med 4 mg, Oral, Every 6 hours PRN, Starting on Thu10/12/24 at 2210, Until Thu10/18/24 at 1448, Routine, nausea, vomiting Or ondansetron (Zofran) injection 4 mgJump to med 4 mg, Intravenous, Every 6 hours PRN, Starting on Thu10/12/24 at 2210, Until Thu10/18/24 at 1448, Routine, vomiting, nausea Or ondansetron (Zofran) 4 MG/5ML solution 4 mgJump to med 4 mg, Oral, Every 6 hours PRN, Starting on Thu10/12/24 at 2210, Until Thu10/18/24 at 1448, Routine, nausea, vomiting documented in this encounter Additional Health Concerns Infection Onset Date Last Indicated Resolved Time Respiratory Rule-Out 10/12/2024 10/12/2024 025 7:53 PM EDT Meningitis Rule-Out 10/14/2024 10/14/2024 10/15/19 11:54 AM EDT Assessment Noted Time PHQ-9 Depression Total Score: 0 09/01/19 3:26 PM EDT A fall risk assessment has been complete d for the patient 10/06/2024 2:29 PM EDT A Body Mass Index follow-up plan has been documented for the patient 10/18/2024 11:56 AM EDT documented as of this encounter Care Teams 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
--- OUTSIDE RECORDS SUMMARY | 2024-10-12 16:08 | XMS_ITS | Encounter Summary ---
Author Organization Healthcare Address [address] [place] [address] Care Team Providers Care Bullet Lubricant Mixer Name Role Phone Laurie Gutierrez MD Primary Care Provider Joshua Martínez MD Unavailable Reason for Visit * Reason Comments Dizziness * Auth/Cert (Routine) Specialty Diagnoses / Procedures Referred By Contac t Referred To Contact Diagnoses Febrile neutropenia (CMS/HCC) Berto Stanford, DO [address] [place] [address] Phone: tel: fax: [facility] A Emergency Department [address] [place] [address] Phone: tel: Referral ID Status Reason Start Date Expiration Date Visits Re quested Visits Authorized [id number] 1 1 Encounter Details Date Type Department Care Team (Latest Contact Info) Description 10/12/2024 4:08 PM EDT - 10/18/2024 12:48 PM EDT Hospital Encounter [facility] A Inpatient [address] [place] [address] Shekhar Ledezma MD [address] [place] [address] Berto Stanford DO [address] [place] [address] Hyacinth Perkins MD [address] [place] [address] Claudia Cali, Unknown, [address] [place] [address] Febrile neutropenia (CMS/HCC) (Primary Dx); [...] time in the past 12 m [facility], were you homeless or living [...] drink first t laurie in the morning (EYE-VENDER) to steady your nerves or to get rid of a hangover? 0 11/19/2023 CAGE Questionnaire Score 0 024 Utilities Answer Date Recorded In the past 12 months has e [employer], gas, oil, or water company threatened to [...] MINI PEN NEEDLES 31G X 5 MM [facility] 09/19/2024 5 Blood Glucose Monitoring Suppl ([employer] Verio Flex System) w/Device kit 09/19/2024 5 carvedilol (Coreg) 12.5 MG tablet Take 1 tablet by mouth 2 times a day with meals. 5 ciclopirox (Penlac) 8 % solution Apply over affected nail fold daily. 5 Continuous Glucose Fashion Intern ([employer] G7 Fashion Intern) device USE TO MEASURE BLOOD SUGAR DIRECTED 09/29/2024 5 Continuous Glucose Sensor (Dexcom G6 Sensor) [facility] USE DIRECTED TO MEASURE BLOOD SUGAR. REPLACE SENSOR EVERY 10 DAYS 09/01/2024 5 dexamethasone (Decadron) 2 MG tablet Take 1 tablet by mouth every 12 hours. 10 tablet 10/18/2024 5 empagliflozin (Jardiance) 25 MG Take 1 [...] Can be adjusted per the MD at [facility] 10 mL 12 10/18/2024 5 Lantus SoloStar 100 UNIT/ML injection pen Inject under the skin 2 times a day. 10/18/2024 5 lidocaine (Xylocaine) 2 % solution Take 5 mL by mouth as needed for mild pain. 10/18/2024 nystatin (Mycostatin) 622812 UNIT/ML suspension Swish and swallow 5 mL [...] from the original note were not included. [address] Living with Lung Cancer When living with [...] you're not sure what to eat. This nutritional health coach can teach you tips on how to [...] cancer, contact the following: ? Lung Cancer [place] at www.lungcanceralliance.org or 726-352-6792 ? [place] Cancer Society at www.cancer.org or 782-740-1313 ? [place] Lung Association at lung.org or 701-686-9952 ? National Cancer [place] at www.cancer.gov or 449-864-0993 Last Reviewed Date: 2022 00:00:00 ?? 5158-5064 [employer]. All rights reserved. This information is not [...] PCP name and Address: Laurie Gutierrez MD [address] [place] [address] Referring provider name and address: No referring [...] medically stable for discharge. To followup with [facility] as OP for cancer care. Discharge Diagnosis: [...] Breztri Aerosphere 160-9-4.8 MCG/ACT aerosol Generic drug: Gzawgzz-Cugfghgckzd-Ohupvqqwar Inhale 2 puffs 2 (two) times a [...] Can be adjusted per the MD at [facility] magic mouthwash BLM suspension Swish and [...] Take 1 tablet by mouth nightly. nystatin 186492 UNIT/ML suspension Commonly known as: Mycostatin Swish [...] 4 of cycle and then take PRN DevHDToEng[employer]Now Flex System w/Device kit pantoprazole 40 MG [...] Your Medications These medications were sent to [facility] [place], [place] - [address] [facility] [address] benzonatate 100 MG capsule dexamethasone 2 MG tablet insulin glargine-yfgn 100 UNIT/ML injection vial Insulin Lispro 100 UNIT/ML injection vial magic mouthwash BLM suspension nystatin 877964 UNIT/ML suspension Discharge Diagnosis Medical Problems Active [...] RAD ONC CT SIMULATOR [facility] RO [facility]quez 10/25/2024 11:45 AM HNR[facility] RN [facility] 10/25/2024 12:00 PM Satnam Colvin MD [facility] 10/25/2024 1:30 PM [facility] 10/26/2024 3:30 PM [facility] 10/27/2024 3:30 PM [facility] 11/08/2024 1:30 PM August Arriola DO [facility] 03/08/2025 1:00 PM Teresita Oconnell MD [facility] I Test Results Pending At [...] of antibiotics on Thursday Claudia Cali MD [facility] Medicine Please reach out using StitcherA[employer] secure chat. * Progress Notes - Nicol Torres - 10/17/2024 2:04 PM EDT Case Management Adult Progress Note Teresa Rivera 63 y.o. female CSN: [id number] Admission: 10/12/2024 4:08 PM Primary Problem: Neutropenic fever (CMS/HCC) Anticipated Discharge Date: 10/18/24 Patient completing IV abx tomorrow and then anticipate discharge home. CLARA Delacruz * Progress Notes - Claudia Cail MD - 10/16/2024 10:40 AM EDT Subjective [...] brain: on chemotherapy -[facility] -[facility]: prev chemoRT (carbo/etop) completed September; following [...] MD Hospital Medicine Please reach out using StitcherA[employer] secure chat. * Care Plan - Quan [...] Please call with any questions or concerns. [phone] All Prabhakar M.D. Resident Physician PGY-3 Department of Neurosurgery [facility] Cosigned by Amilcar Farnsworth MD at 10/16/2024 [...] MD Hospital Medicine Please reach out using St[employer]cher[employer] secure chat. 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 Marítnez), plan to re sim as pt's insurance [...] Note Teresa Rivera 63 y.o. female CSN: [id number] Admission: 10/12/2024 4:08 PM Primary Problem: Neutropenic fever (CMS/HCC) Supervisor Inspection And Testing reviewed chart and spoke with patient to complete this Initial Case Management Assessment. PCP: Laurie Gutierrez MD Emergency Contact: Extended Emergency Contact Information Primary Emergency Contact: Zachary Rivera Mobile Relation: Son Preferred language: [place] Bistro Server needed? No Secondary Emergency Contact: NicoleAurora Mobile Relation: Daughter Preferred language: [place] Bistro Server needed? No Insurance: Primary Visit Coverage Payer Plan Sponsor Code Group Number Group Name [facility] [employer] MED[employer] [employer] [employer] MEDICAID [id number] Primary Visit Coverage Subscriber Subscriber ID Subscriber Name Subscriber SSN Subscriber Address [id number] TERESA RIVERA [id number] [place] [address] Patient information: admit to with history of [...] and has home assistance and transport. Pharmacy: [facility] Primary Caregiver: Self Support System: Immediate family Daily Living Activities: Functional Status: Independent Living Arrangements: Alone (recently 3 weeks) Type of Residence: Private residence [address] [place] [id number] Current DME: Equipment Currently Used at Home: [...] Services: none reported Living Will/Advance Directive/Power of Construction Inspector /Guardian: reports advanced directive in place and [...] Please call with any questions or concerns. [phone] All Prabhakar M.D. Resident Physician PGY-3 Department of Neurosurgery [facility] Cosigned by Abhilash Bangura MD at 10/17/2024 8:32 AM EDT Associated attestation - Abhilash Bangura MD - 10/17/2024 8:32 AM EDT I saw and evaluated the patient with the resident/fellow. I discussed the case with the resident/fellow and agree with the findings and plan as documented. * Procedures - Dayana Rvier RN - 10/14/2024 10:55 AM EDTAssociated Order(s): Insert peripheral IV Insert peripheral IV Performed by: Dayaan River RN Authorized by: Hyacinth Perkins MD [...] Interventional Radiology Brief Postprocedure Note Attending: Rosalina Burial Vault Setter: Rosario Pre-operative Diagnosis: neutropenic fever, headache, residual [...] mL IVPB (vial adapter required) 2 g Zkeufylrehkb5l John Nieves MD 36.7 mL/hr at 10/14/24 [...] mg at 10/13/242153 lidocaine-EPINEPHrine (Xylocaine W/EPI) 1 %-1:417315 injection 20 mL 20 mL Infiltration Once Domingo Waldrop MD wpbomfiwz-hsqmfxydhjx-oqlldlhlov (L.E.T.) topical gel 1 Application 1 Application [...] Barcenas MD 5 mg at 10/13/242119 Tiotropium [place] Monohydrate (Spiriva Respimat) 2.5 MCG/ACT inhaler 2 puff 2 puff Inhalation Daily John Nieves MD 2 puff at 10/13/24 0821 And mometasone-formoterol (Dulera 200) 200-5 MCG/ACT inhaler 2 puff 2 puff Inhalation BID Clara Nieves MD 2 puff at 10/13/24 0909 montelukast (Singulair) tablet 10 mg 10 mg Oral Nightly John Nieves MD 10 mg at 10/13/242152 nystatin (Mycostatin) 146423 UNIT/ML suspension 500,000 Units 5 mL Swish & Swallow 4x daily Hyacinth Perkins MD 500,000 Units at 10/13/242153 ondansetron ODT (Zofran-ODT) disintegrating tablet 4 mg 4 mg Oral q6h PRN John Neives MD Or ondansetron (Zofran) injection 4 mg [...] and ampicillin for empiric coverage of meningitis/central 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 DESIGN 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 infection and bacterial pneumonia -blood cx, UA [...] cell carcinoma of lung 10/04/2024 - Chemotherapy Xkqpemkzjtdi-Eugtcnswrlpaw-tdfs (Tecentriq Hybreza) 1875-32206 MG-UT/15ML injection solution 1,875 mg, 1,875 mg, [...] Family History[3] 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 Patient lives in [place], [place] Tobacco Use History[4] 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 Substance [...] September; following L frontal craniotomy 09/05 began P3bdcdj/etop/atezolizumab 10/04 - 10/06 - CT chest 09/[address] AP 10/12 w no evident recurrent visceral involvement - Further care as below; can assist w rescheduling outpt fu as indicated, pending dispo #Febrile neutropenia w sepsis #Gr3 thrombocytopenia #Chemotherapy related #Concern for risk of meningeal/PROCESS DESIGN CHEMICAL ENGINEER infection in context of recent crani - [...] should other questions/concerns arise. RACHEL Adames Physician Burial Vault Setter Division of Medical Oncology [1] Past Medical [...] SURGERY TUBAL LIGATION N/A Tubal Ligation from [facility] TYMPANOSTOMY TUBE PLACEMENT N/A Ear Surgery Eustachian Tube from [employer] [3] Family History Problem Relation Name Age [...] Please call with any questions or concerns. [phone] Zachary Brown MD Resident Physician, PGY-2 Department of neurosurgery Pager: [phone] Cosigned by Gabino Adam MD at 10/13/2024 [...] 10/12/2024 10:22 PM EDTAssociated Order(s): Consult to [facility] Images from the original note were not included. Consult to [facility] Consult performed by: John Nieves MD Consult ordered by: Callie Samuel PA [facility] Medicine History & Physical Subjective 10/12/2024 [...] injectable 05/27/2013, 02/19/2017, 03/13/2021 Moderna COVID-19 Vaccine (Pivot Maker) 12+ years 06/26/2020, 02/06/2021, 10/03/2021 Moderna COVID-19 [...] times daily PRN Blood Glucose Monitoring Suppl (NetB[employer] Verio Flex System) w/Device kit Lgocaim-Tkmdxrsmlzk-Txxizjiblv (Breztri Aerosphere) 160-9-4.8 MCG/ACT aerosol 2 puffs, 2 times daily Calcium Carb-Cholecalciferol 600-10 MG-MCG tablet 600 mg, Daily carvedilol (COREG) 12.5 mg, 2 times daily with meals cetirizine (ZYRTEC) 10 mg, Daily ciclopirox (Penlac) 8 % solution Apply over affected nail fold daily. 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 Resident Physician PGY-3 Department of Neurosurgery [facility] [1] Current Facility-Administered Medications Medication Dose Route Frequency Provider Last Rate Last Admin cefepime (Maxipime) 2 g in sodium chloride 0.9% 100 mL IVPB (vial adapter required) 2 g IntravenousOnce LizzieCallie PA 36.7 mL/hr at 10/12/24 1836 2 g at 10/12/24 183 magnesium sulfate IVPB 2 g 2 g Intravenous Once Rebsamen Callie A PA 25 mL/hr at 10/12/24 16579 g at 10/12/24 184 vancomycin (Vancocin) 2,500 [...] Reported on 10/04/2024) Blood Glucose Monitoring Suppl ([employer] Verio Flex System) w/Device kit Zztaimy-Pelomwtdzlz-Ntkzmgesio (Breztri Aerosphere) 160-9-4.8 MCG/ACT aerosol Inhale 2 [...] daily. Continuous Glucose Sensor (Dexcom G6 Sensor) [facility] USE DIRECTED TO [...] Can be adjusted per the MD at [facility] insulin lispro (Admelog, HumaLOG) 100 UNIT/ML injection pen (Patient not taking: Reported on 10/04/2024) Insulin Lispro (Admelog, HumaLOG) 100 UNIT/ML injection vial Inject 15 Units under the skin 3 timesa day with meals. Can be adjusted per the MD at [facility] Lantus SoloStar 100 UNIT/ML injection pen [...] Acknowledged CALLIE SAMUEL 10/12/24 190 Consult to [facility] Once Specialty: Internal Medicine Provider: (Not [...] 1854 Had an interactive discussion with cards neon sign erector, States to avoid rate control in patient [...] ED Prescriptions None Disposition Admit Requested Location: [facility] [[id number]] - [1] Past Medical History: Diagnosis Date [...] SURGERY TUBAL LIGATION N/A Tubal Ligation from [facility] TYMPANOSTOMY TUBE PLACEMENT N/A Ear Surgery Eustachian Tube from [employer] [3] Family History Problem Relation Name Age [...] 1854 Had an interactive discussion with cards neon sign erector, States to avoid rate control in patient [...] None Disposition Admit Admitting/Attending Physician: BERTO STANFORD [[id number]] Provider Care Team: WENCESLAO 2 [185] Are [...] [facility] [address] [facility]nd [place] [address] 11/29/2024 11:00 AM EDT Office Visit [facility] [address] [facility]nd [place] [address] Satnam Colvin MD [address] [facility] [address] [place] [address] 11/29/2024 12:30 PM EDT Appointment [facility] 1 [address] [place] [address] 11/30/2024 1:30 PM EDT Appointment [facility] 1 [address] [place] [address] 12/01/2024 2:00 PM EDT Appointment [facility] 1 [address] [place] [address] 12/06/2024 11:40 AM EDT Appointment [facility] Radiation [address] [place] [address] Haven Blum, ELECTRIC MOTOR FITTER [address] [place] [address] 01/19/2025 9:30 AM EDT Appointment [facility] S Radiology [address] [place] [address] 01/19/2025 10:45 AM EDT Office Visit [facility] [address], [address] [place] [address] Abhilash Bangura MD [address] [place] [address] 03/08/2025 1:00 PM EDT Office Visit [facility] [place] [address] [place] [address] Teresita Oconnell MD [address] [place] [address] documented as of this encounter Procedures Procedure [...] POCT glucose meter (10/18/2024 8:29 AM EDT) [facility] POCT Glucose 251(H) 74 - 99 mg/dL 10/18/2024 8:31 AM EDT [facility] Comment:Accuracy of a glucos e result [...] 10/18/2024 8:31 AM EDT [facility] Behavioral Technician ID Isabelle Liu 10/18/2024 8:31 AM EDT [facility] Device ID [id number] 10/18/2024 8:31 AM EDT [facility] Specimen Type POC Capillary 10/18/2024 8:31 AM EDT [facility] Blood Capillary blood specimen / Unknown 10/18/2024 8:29 AM EDT 10/18/2024 8:31 AM EDT us Unknown Claudia Cali MD LAB POINT OF C ARE TEST DOCKED DEVICE UNSOLICITED RESULTS Final Result Performing Organization Address [facility] Co de Phone Number [facility] [address] [place] [address] * Morphology (10/18/2024 3:46 AM EDT) Blood Venous blood specimen / Unknown Venipuncture / Unknown 10/18/2024 3:46 AM EDT 10/18/2024 3:53 AM EDT us Unknown Claudia Cali MD LAB BLOOD ORDERABLES F inal Result Performing Organization Address [facility] de Phone Number [facility] [address] [place] [address] * (ABNORMAL) Manual Differential (10/18/2024 3:46 AM EDT) Blasts % 0 % LAB HEMATOLOGY METHOD 10/18/2024 5:06 AM EDT [facility] Promyelocytes % 2 % LAB HEMATOLOGY METHOD 10/18/2024 5:06 AM EDT [facility] Myelocytes % 2 % LAB HEMATOLOGY METHOD 10/18/2024 5:06 AM EDT [facility] Metamyelocytes % 5 % LAB HEMATOLOGY METHOD 10/18/2024 5:06 AM EDT [facility] Neutrophils % 87 % LAB HEMATOLOGY METHOD 10/18/2024 5:06 AM EDT [facility] Lymphocytes % 4 % LAB HEMATOLOGY METHOD 10/18/2024 5:06 AM EDT [facility] Reactive Lymphocytes % 0 % LAB HEMATOLOGY METHOD 10/18/2024 5:06 AM EDT [facility] Monocytes % 0 % LAB HEMATOLOGY METHOD 10/18/2024 5:06 AM EDT [facility] Eosinophils % 0 % LAB HEMATOLOGY METHOD 10/18/2024 5:06 AM EDT [facility] Basophils % 0 % LAB HEMATOLOGY METHOD 10/18/2024 5:06 AM EDT [facility] Blasts Absolute LAB HEMATOLOGY METHOD 10/18/2024 5:06 AM EDT [facility] Promyelocytes Absolute 0.08 10*3/uL LAB HEMATOLOGY METHOD 10/18/2024 5:06 AM EDT [facility] Myelocytes Absolute 0.08 10*3/uL LAB HEMATOLOGY METHOD 10/18/2024 5:06 AM EDT [facility] Metamyelocytes Absolute 0.21 10*3/uL LAB HEMATOLOGY METHOD 10/18/2024 5:06 AM EDT [facility] Neutrophils Absolute 3.58 1.60 - 6.10 10*3/uL LAB HEMATOLOGY METHOD 10/18/2024 5:06 AM EDT [facility] Lymphocytes Absolute 0.16(L) 1.20 - 3.90 10*3/uL LAB HEMATOLOGY METHOD 10/18/2024 5:06 AM EDT [facility] Reactive Lymphocytes Absolute LAB HEMATOLOGY METHOD 10/18/2024 5:06 AM EDT [facility] Monocytes Absolute LAB HEMATOLOGY METHOD 10/18/2024 5:06 AM EDT [facility] Eosinophils Absolute LAB HEMATOLOGY METHOD 10/18/2024 5:06 AM EDT [facility] Basophils Absolute LAB HEMATOLOGY METHOD 10/18/2024 5:06 AM EDT [facility] Blood Venous blood specimen / Unknown Venipuncture / Unknown 10/18/2024 3:46 AM EDT 10/18/2024 3:53 AM EDT us Unknown Claudia Cali MD LAB BLOOD ORDERABLES F inal Result [facility] [address] [place] [address] * (ABNORMAL) CBC and Differential (10/18/2024 3:46 AM EDT) WBC Count 4.12 3.70 - 10.30 10*3/uL LAB HEMATOLOGY METHOD 10/18/2024 5:06 AM EDT [facility] RBC Count 3.21(L) 3.90 - 5.20 10*6/uL LAB HEMATOLOGY METHOD 10/18/2024 5:06 AM EDT [facility] HGB 9.6(L) 11.2 - 15.7 g/dL LAB HEMATOLOGY METHOD 10/18/2024 5:06 AM EDT [facility] HCT 29.9(L) 34.0 - 45.0 % LAB HEMATOLOGY METHOD 10/18/2024 5:06 AM EDT [facility] Platelet Count 54(L) 155 - 369 10*3/uL LAB HEMATOLOGY METHOD 10/18/2024 5:06 AM EDT [facility] MCV 93 79 - 98 fL LAB HEMATOLOGY METHOD 10/18/2024 5:06 AM EDT [facility] MCH 29.9 26.0 - 32.0 pg LAB HEMATOLOGY METHOD 10/18/2024 5:06 AM EDT [facility] MCHC 32.1 30.7 - 35.5 g/dL LAB HEMATOLOGY METHOD 10/18/2024 5:06 AM EDT [facility] RDW 15.0(H) 11.5 - 14.5 % LAB HEMATOLOGY METHOD 10/18/2024 5:06 AM EDT [facility] MPV 9.8 8.8 - 12.5 fL LAB HEMATOLOGY METHOD 10/18/2024 5:06 AM EDT [facility] nRBC 1.9(H) <=0.0 per 100 WBCs LAB HEMATOLOGY METHOD 10/18/2024 5:06 AM EDT [facility] Differential Type Manual LAB HEMATOLOGY METHOD 10/18/2024 5:06 AM EDT [facility] Blood Venous blood specimen / Unknown Venipuncture / Unknown 10/18/2024 3:46 AM EDT 10/18/2024 3:53 AM EDT Narrative [facility] - 10/18/2024 5:06 AM EDT Therapeutic [...] ORDERABLES F inal Result Performing Organization Address City/[facility]/ZIP Co de Phone Number [facility] [address] [place] [address] * (ABNORMAL) POCT glucose meter (10/18/2024 3:35 [...] Comment 10/18/2024 3:37 AM EDT [facility] Behavioral Technician ID JoséGiorgio 3:37 AM EDT [facility] Device ID [id number] 10/18/2024 3:37 AM EDT [facility] Specimen Type POC Venous 10/18/2024 3:37 AM EDT [facility] Blood Venous blood specimen / Unknown 10/18/2024 3:35 AM EDT 10/18/2024 3:37 AM EDT us Unknown Claudia Cali MD LAB POINT OF C ARE TEST DOCKED DEVICE UNSOLICITED RESULTS Final Result Performing Organization Address City/[facility]/ZIP Co de Phone Number [facility] [address] [place] [address] * (ABNORMAL) POCT glucose meter (10/17/2024 8:20 [...] 10/17/2024 8:22 PM EDT [facility] Behavioral Technician ID Joya Galicia 025 8:22 PM EDT [facility] Device ID [id number] 10/17/2024 8:22 PM EDT [facility] Specimen Type POC Capillary 10/17/2024 8:22 PM EDT [facility] Blood Capillary blood specimen / Unknown 10/17/2024 8:20 PM EDT 10/17/2024 8:22 PM EDT us Unknown Claudia Cali MD LAB POINT OF C ARE TEST DOCKED DEVICE UNSOLICITED RESULTS Final Result Performing Organization Address City/State/[facility] Co de Phone Number [facility] [address] [place] [address] * (ABNORMAL) POCT glucose meter (10/17/2024 6:01 PM EDT) [facility] POCT Glucose 244(H) 74 - 99 mg/dL [...] 10/17/2024 6:03 PM EDT [facility] Behavioral Technician ID Abril Duong 10/17/2024 6:03 PM EDT [facility] Device ID [id number] 10/17/2024 6:03 PM EDT [facility] Specimen Type POC Capillary 10/17/2024 6:03 PM EDT [facility] Blood Capillary blood specimen / Unknown 10/17/2024 6:01 PM EDT 10/17/2024 6:03 PM EDT us Unknown Claudia Cali MD LAB POINT OF ARE TEST DOCKED DEVICE UNSOLICITED RESULTS Final Result Performing Organization Address City/[facility] Co de Phone Number [facility] [address] [place] [address] * (ABNORMAL) POCT glucose meter (10/17/2024 11:57 [...] Comment 10/17/2024 11:58 AM EDT [facility] Behavioral Technician ID Kyle Paulson Abril 10/17/2024 11:58 AM EDT [facility] Device ID [id number] 10/17/2024 11:58 AM EDT [facility] Specimen Type POC Capillary 10/17/2024 11:58 AM EDT [facility] Blood Capillary blood specimen / Unknown 10/17/2024 11:57 AM EDT 10/17/2024 11:58 AM EDT us Unknown Claudia Cali MD LAB POINT OF C ARE TEST DOCKED DEVICE UNSOLICITED RESULTS Final Result Performing Organization Address City/[facility] Co de Phone Number [facility] [address] [place] [address] * (ABNORMAL) POCT glucose meter (10/17/2024 8:18 [...] Comment 10/17/2024 8:19 AM EDT [facility] Behavioral Technician ID Abril Duong 10/17/2024 8:19 AM EDT [facility] Device ID [id number] 10/17/2024 8:19 AM EDT [facility] Specimen Type POC Capillary 10/17/2024 8:19 AM EDT [facility] Blood Capillary blood specimen / Unknown 10/17/2024 8:18 AM EDT 10/17/2024 8:19 AM EDT us Unknown Claudia Cali MD LAB POINT OF C ARE TEST DOCKED DEVICE UNSOLICITED RESULTS Final Result Performing Organization Address City/[facility]/ZIP Co de Phone Number [facility] [address] [place] [address] * Morphology (10/17/2024 3:38 AM EDT) Elliptocytes/O valocytes Present LAB HEMATOLOGY METHOD 10/17/2024 5:33 AM EDT [facility] RBC Morphology Slide Reviewed LAB HEMATOLOGY METHOD 10/17/2024 5:33 AM EDT [facility] Platelet Estimate Platelet smear estimate consistent with automated count LAB HEMATOLOGY METHOD 10/17/2024 5:33 AM EDT [facility] Blood Venous blood specimen / Unknown Venipuncture / Unknown 10/17/2024 3:38 AM EDT 10/17/2024 4:02 AM EDT us Unknown Claudia Cali MD LAB BLOOD ORDERABLES F inal Result [facility] [address] [place] [address] * (ABNORMAL) Manual Differential (10/17/2024 3:38 AM EDT) Blasts % 0 % LAB HEMATOLOGY METHOD 10/17/2024 5:33 AM EDT [facility] Promyelocytes % 0 % LAB HEMATOLOGY METHOD 10/17/2024 5:33 AM EDT [facility] Myelocytes % 3 % LAB HEMATOLOGY METHOD 10/17/2024 5:33 AM EDT [facility] Metamyelocytes % 2 % LAB HEMATOLOGY METHOD 10/17/2024 5:33 AM EDT [facility] Neutrophils % 66 % LAB HEMATOLOGY METHOD 10/17/2024 5:33 AM EDT [facility] Lymphocytes % 26 % LAB HEMATOLOGY METHOD 10/17/2024 5:33 AM EDT [facility] Reactive Lymphocytes % 1 % LAB HEMATOLOGY METHOD 10/17/2024 5:33 AM EDT [facility] Monocytes % 1 % LAB HEMATOLOGY METHOD 10/17/2024 5:33 AM EDT [facility] Eosinophils % 1 % LAB HEMATOLOGY METHOD 10/17/2024 5:33 AM EDT [facility] Basophils % 0 % LAB HEMATOLOGY METHOD 10/17/2024 5:33 AM EDT [facility] Blasts Absolute 0.00 10*3/UL LAB HEMATOLOGY METHOD 10/17/2024 5:33 AM EDT [facility] Promyelocytes Absolute 0.00 10*3/uL LAB HEMATOLOGY METHOD 10/17/2024 5:33 AM EDT [facility] Myelocytes Absolute 0.05 10*3/uL LAB HEMATOLOGY METHOD 10/17/2024 5:33 AM EDT [facility] Metamyelocytes Absolute 0.03 10*3/uL LAB HEMATOLOGY METHOD 10/17/2024 5:33 AM EDT [facility] Neutrophils Absolute 1.04(L) 1.60 - 6.10 10*3/uL LAB HEMATOLOGY METHOD 10/17/2024 5:33 AM EDT [facility] Lymphocytes Absolute 0.41(L) 1.20 - 3.90 10*3/uL LAB HEMATOLOGY METHOD 10/17/2024 5:33 AM EDT [facility] Reactive Lymphocytes Absolute 0.02 10*3/uL LAB HEMATOLOGY METHOD 10/17/2024 5:33 AM EDT [facility] Monocytes Absolute 0.02(L) 0.30 - 0.90 10*3/uL LAB HEMATOLOGY METHOD 10/17/2024 5:33 AM EDT [facility] Eosinophils Absolute 0.02 0.00 - 0.50 10*3/uL LAB HEMATOLOGY METHOD 10/17/2024 5:33 AM EDT [facility] Basophils Absolute 0.00 0.00 - 0.10 10*3/uL LAB HEMATOLOGY METHOD 10/17/2024 5:33 AM EDT [facility] Blood Venous blood specimen / Unknown Venipuncture / Unknown 10/17/2024 3:38 AM EDT 10/17/2024 4:02 AM EDT us Unknown Claudia Cali MD LAB BLOOD ORDERABLES F inal Result [facility] [address] [place] [address] * (ABNORMAL) CBC and Differential (10/17/2024 3:38 AM EDT) WBC Count 1.58(L) 3.70 - 10.30 10*3/uL LAB HEMATOLOGY METHOD 10/17/2024 5:33 AM EDT [facility] RBC Count 2.73(L) 3.90 - 5.20 10*6/uL LAB HEMATOLOGY METHOD 10/17/2024 5:33 AM EDT [facility] HGB 8.3(L) 11.2 - 15.7 g/dL LAB HEMATOLOGY METHOD 10/17/2024 5:33 AM EDT [facility] HCT 25.8(L) 34.0 - 45.0 % LAB HEMATOLOGY METHOD 10/17/2024 5:33 AM EDT [facility] Platelet Count 42(L) 155 - 369 10*3/uL LAB HEMATOLOGY METHOD 10/17/2024 5:33 AM EDT [facility] MCV 95 79 - 98 fL LAB HEMATOLOGY METHOD 10/17/2024 5:33 AM EDT [facility] MCH 30.4 26.0 - 32.0 pg LAB HEMATOLOGY METHOD 10/17/2024 5:33 AM EDT [facility] MCHC 32.2 30.7 - 35.5 g/dL LAB HEMATOLOGY METHOD 10/17/2024 5:33 AM EDT [facility] RDW 15.0(H) 11.5 - 14.5 % LAB HEMATOLOGY METHOD 10/17/2024 5:33 AM EDT [facility] MPV 9.9 8.8 - 12.5 fL LAB HEMATOLOGY METHOD 10/17/2024 5:33 AM EDT [facility] nRBC 3.2(H) <=0.0 per 100 WBCs LAB HEMATOLOGY METHOD 10/17/2024 5:33 AM EDT [facility] Differential Type Manual LAB HEMATOLOGY METHOD 10/17/2024 5:33 AM EDT [facility] Blood Venous blood specimen / Unknown Venipuncture / Unknown 10/17/2024 3:38 AM EDT 10/17/2024 4:02 AM EDT Narrative [facility] - 10/17/2024 5:33 AM EDT Therapeutic [...] MD LAB BLOOD ORDERABLES F inal Result [facility] [address] [place] [address] * (ABNORMAL) POCT glucose meter (10/17/2024 3:27 AM EDT) [facility] POCT Glucose 221(H) 74 - 99 mg/dL 10/17/2024 3:30 AM EDT [facility] Comment:Accuracy of a glucos e result [...] 10/17/2024 3:30 AM EDT [facility] Behavioral Technician Ramona Reynoso 10/17/2024 3:30 AM EDT [facility] Device ID [id number] 10/17/2024 3:30 AM EDT [facility] Specimen Type POC Capillary 10/17/2024 3:30 AM EDT [facility] Blood Capillary blood specimen / Unknown 10/17/2024 3:27 AM EDT 10/17/2024 3:30 AM EDT us Unknown Claudia Cali MD LAB POINT OF C ARE TEST DOCKED DEVICE UNSOLICITED RESULTS Final Result Performing Organization Address City/[facility] Co de Phone Number [facility] [address] [place] [address] * (ABNORMAL) POCT glucose meter (10/16/2024 8:09 PM EDT) [facility] POCT Glucose 342(H) 74 - 99 mg/dL [...] Comment 10/16/2024 8:11 PM EDT [facility] Behavioral Technician ID Herrera, Ramona 10/16/2024 8:11 PM EDT [facility] LAB Device ID [id number] 10/16/2024 8:11 PM EDT [facility] Specimen Type POC Capillary 10/16/2024 8:11 PM EDT [facility] Blood Capillary blood specimen / Unknown 10/16/2024 8:09 PM EDT 10/16/2024 8:11 PM EDT us Unknown Claudia Cali MD LAB POINT OF C ARE TEST DOCKED DEVICE UNSOLICITED RESULTS Final Result Performing Organization Address City/[facility]/ZIP Co de Phone Number [facility] [address] [place] [address] * (ABNORMAL) POCT glucose meter (10/16/2024 5:46 [...] Comment 10/16/2024 5:48 PM EDT [facility] Behavioral Technician ID Sue Hernandez 10/17/19 5:48 PM EDT [facility] Device ID [id number] 10/16/2024 5:48 PM EDT [facility] Specimen Type POC Capillary 10/16/2024 5:48 PM EDT [facility] Blood Capillary blood specimen / Unknown 10/16/2024 5:46 PM EDT 10/16/2024 5:48 PM EDT us Unknown Claudia Cali MD LAB POINT OF C ARE TEST DOCKED DEVICE UNSOLICITED RESULTS Final Result [facility] [address] [place] [address] * (ABNORMAL) POCT glucose meter (10/16/2024 12:13 PM EDT) [facility] POCT Glucose 342(H) 74 - 99 mg/dL [...] Comment 10/16/2024 12:16 PM EDT [facility] Behavioral Technician ID Quan Chavez 10/16/2024 12:16 PM EDT [facility] Device ID [id number] 10/16/2024 12:16 PM EDT [facility] Specimen Type POC Capillary 10/16/2024 12:16 PM EDT [facility] Blood Capillary blood specimen / Unknown 10/16/2024 12:13 PM EDT 10/16/2024 12:16 PM EDT us Unknown Claudia Cali MD LAB POINT OF C ARE TEST DOCKED DEVICE UNSOLICITED RESULTS Final Result Performing Organization Address [facility] de Phone Number [facility] [address] [place] [address] * (ABNORMAL) POCT glucose meter (10/16/2024 8:31 AM EDT) [facility] POCT Glucose 219(H) 74 - 99 mg/dL [...] Comment 10/16/2024 8:32 AM EDT [facility] Behavioral Technician ID Erendira Christianson 10/17/19 8:32 AM EDT [facility] LAB Device ID [id number] 10/16/2024 8:32 AM EDT [facility] Specimen Type POC Capillary 10/16/2024 8:32 AM EDT [facility] Blood Capillary blood specimen / Unknown 10/16/2024 8:31 AM EDT 10/16/2024 8:32 AM EDT us Unknown Claudia Cali MD LAB POINT OF C ARE TEST DOCKED DEVICE UNSOLICITED RESULTS Final Result Performing Organization Address City/[facility] Co de Phone Number [facility] [address] [place] [address] * (ABNORMAL) Comprehensive Metabolic Panel, Plasma (10/16/2024 5:49 AM EDT) [facility] Glucose, Plasma 232(H) 74 - 99 mg/dL 10/16/2024 6:35 AM EDT [facility] BUN, Plasma 16 8 - 23 mg/dL 10/16/2024 6:35 AM EDT [facility] Creatinine, Plasma 0.54(L) 0.60 - 1.10 mg/dL 10/16/2024 6:35 AM EDT [facility] BUN/Creatinine Ratio 30 10/16/2024 6:35 AM EDT [facility] Sodium, Plasma 141 136 - 145 mmol/L 10/16/2024 6:35 AM EDT [facility] Potassium, Plasma 4.2 3.6 - 4.9 mmol/L 10/16/2024 6:35 AM EDT [facility] Chloride, Plasma 109(H) 97 - 107 mmol/L 10/16/2024 6:35 AM EDT [facility] CO2, Plasma 23 22 - 29 mmol/L 10/16/2024 6:35 AM EDT [facility] Anion Gap 9 6 - 16 mmol/L 10/16/2024 6:35 AM EDT [facility] Total Calcium, Plasma 8.2(L) 8.9 - 10.2 mg/dL 10/16/2024 6:35 AM EDT [facility] Total Protein 5.8(L) 6.3 - 7.9 g/dL 10/16/2024 6:35 AM EDT [facility] Albumin, Plasma 3.0(L) 3.5 - 5.2 g/dL 10/16/2024 6:35 AM EDT [facility] AST, Plasma 15 10 - 35 U/L 10/16/2024 6:35 AM EDT [facility] ALT, Plasma 29 10 - 35 U/L 10/16/2024 6:35 AM EDT [facility] Alkaline Phosphatase, Plasma 77 46 - 142 U/L 10/16/2024 6:35 AM EDT [facility] Total Bilirubin, Plasma 0.3 0.2 - 1.1 mg/dL 10/16/2024 6:35 AM EDT [facility] eGFRcr 103.6 mL/min/1.7 3m*2 10/16/2024 6:35 AM EDT [facility] Comment:Reported eGFRcr in m L/min/1.73m2 is based the CKD-EPI 2020 equation that does not use a race coefficient. Blood Venous blood specimen / Unknown Venipuncture / Unknown 10/16/2024 5:49 AM EDT 10/16/2024 6:04 AM EDT us Hyacinth Perkins MD LAB BLOOD ORDERABLES Final Res ult [facility] [address] [place] [address] * (ABNORMAL) CBC and Differential (10/16/2024 5:49 AM EDT) WBC Count 0.68(LL) 3.70 - 10.30 10*3/uL LAB HEMATOLOGY METHOD 10/16/2024 11:48 AM EDT [facility] RBC Count 2.74(L) 3.90 - 5.20 10*6/uL LAB HEMATOLOGY METHOD 10/16/2024 11:48 AM EDT [facility] HGB 8.4(L) 11.2 - 15.7 g/dL LAB HEMATOLOGY METHOD 10/16/2024 11:48 AM EDT [facility] HCT 26.1(L) 34.0 - 45.0 % LAB HEMATOLOGY METHOD 10/16/2024 11:48 AM EDT [facility] Platelet Count 38(L) 155 - 369 10*3/uL LAB HEMATOLOGY METHOD 10/16/2024 11:48 AM EDT [facility] MCV 95 79 - 98 fL LAB HEMATOLOGY METHOD 10/16/2024 11:48 AM EDT [facility] MCH 30.7 26.0 - 32.0 pg LAB HEMATOLOGY METHOD 10/16/2024 11:48 AM EDT [facility] MCHC 32.2 30.7 - 35.5 g/dL LAB HEMATOLOGY METHOD 10/16/2024 11:48 AM EDT [facility] RDW 15.0(H) 11.5 - 14.5 % LAB HEMATOLOGY METHOD 10/16/2024 11:48 AM EDT [facility] MPV 9.4 8.8 - 12.5 fL LAB HEMATOLOGY METHOD 10/16/2024 11:48 AM EDT [facility] nRBC 4.4(H) <=0.0 per 100 WBCs LAB HEMATOLOGY METHOD 10/16/2024 11:48 AM EDT [facility] Differential Type Automated LAB HEMATOLOGY METHOD 10/16/2024 11:48 AM EDT [facility] Neutrophils % LAB HEMATOLOGY METHOD 10/16/2024 11:48 AM EDT [facility] Lymphocytes % LAB HEMATOLOGY METHOD 10/16/2024 11:48 AM EDT [facility] Monocytes % LAB HEMATOLOGY METHOD 10/16/2024 11:48 AM EDT [facility] Eosinophils % LAB HEMATOLOGY METHOD 10/16/2024 11:48 AM EDT [facility] Basophils % LAB HEMATOLOGY METHOD 10/16/2024 11:48 AM EDT [facility] Immature Granulocytes % LAB HEMATOLOGY METHOD 10/16/2024 11:48 AM EDT [facility] Neutrophils Absolute LAB HEMATOLOGY METHOD 10/16/2024 11:48 AM EDT [facility] Lymphocytes Absolute LAB HEMATOLOGY METHOD 10/16/2024 11:48 AM EDT [facility] Monocytes Absolute LAB HEMATOLOGY METHOD 10/16/2024 11:48 AM EDT [facility] Eosinophils Absolute LAB HEMATOLOGY METHOD 10/16/2024 11:48 AM EDT [facility] Basophils Absolute LAB HEMATOLOGY METHOD 10/16/2024 11:48 AM EDT [facility] Immature Granulocytes Absolute LAB HEMATOLOGY METHOD 10/16/2024 11:48 AM EDT [facility] Blood Venous blood specimen / Unknown Venipuncture / Unknown 10/16/2024 5:49 AM EDT 10/16/2024 6:04 AM EDT Narrative [facility] - 10/16/2024 11:48 AM EDT Therapeutic decision making should be based on absolute values, rather than percentages. us Hyacinth Perkins MD LAB BLOOD ORDERABLES Final Res ult [facility] [address] [place] [address] * (ABNORMAL) Vancomycin, Trough, Plasma Please draw ~30 minutes prior to dose due at 0600 on 10/16/24. Please do NOT hold dose awaiting level to return. Consider obtaining level via peripheral stick. If peripheral stick is not feasible, please ensure that line ... (10/16/2024 5:49 AM EDT) Pathologist [facility] Vancomycin, Trough, Plasma 5.8(L) 10.0 - 20.0 ug/mL 10/16/2024 6:34 AM EDT [facility] Blood Venous blood specimen / Unknown Venipuncture / Unknown 10/16/2024 5:49 AM EDT 10/16/2024 6:04 AM EDT Narrative [facility] - 10/16/2024 6:34 AM EDT Therapeutic Trough level: 10-20ug/mL Supra-therapeutic Trough level: >20 ug/mL us Unknown Claudia Cali MD LAB BLOOD ORDERABLES F inal Result Performing Organization Address City/[facility] Co de Phone Number [facility] [address] [place] [address] * (ABNORMAL) POCT glucose meter (10/16/2024 3:37 AM EDT) [facility] POCT Glucose 233(H) 74 - 99 mg/dL [...] 10/16/2024 3:39 AM EDT [facility] Behavioral Technician ID Halle House 10/16/2024 3:39 AM EDT HEALTHCARE LAB Device ID [id number] 10/16/2024 3:39 AM EDT [facility]ARE LAB Specimen Type POC Capillary 10/16/2024 3:39 AM EDT [facility] Blood Capillary blood specimen / Unknown 10/16/2024 3:37 AM EDT 10/16/2024 3:39 AM EDT us Unknown Claudia Cali MD LAB POINT OF C ARE TEST DOCKED DEVICE UNSOLICITED RESULTS Final Result Performing Organization Address City/[facility]/ZIP Co de Phone Number [facility] [address] [place] [address] * ECG Adult (10/15/2024 10:43 PM EDT) Pathologist [facility] EKG DIAGNOSIS CLASS Abnormal MUSE ECG Ventricular Rate 146 BPM MUSE ECG QRSD Interval 88 ms MUSE ECG QT Interval 288 ms MUSE ECG QTC Interval 448 ms MUSE ECG R [place] 39 degrees MUSE ECG T Wave [place] 68 degrees MUSE ECG Diagnosis Atrial fibrillation with rapid ventricular response MUSE ECG Diagnosis Nonspecific ST and T wave abnormality MUSE ECG Diagnosis Abnormal ECG MUSE ECG Diagnosis MUSE ECG Diagnosis Confirmed by Joey Perkins ([id number]) on 10/16/2024 3:31:49 PM MUSE ECG 10/15/2024 10:4 3 PM EDT 10/16/2024 3:31 PM EDT us Vesna Barcenas MD ECG ORDERABLES Final Result Performing Organization Address [facility] Co de Phone Number MUSE ECG * (ABNORMAL) POCT glucose meter (10/15/2024 8:48 PM EDT) [facility] POCT Glucose 312(H) 74 - 99 mg/dL [...] 10/15/2024 8:49 PM EDT [facility] Behavioral Technician ID Gladys Steele 8:49 PM EDT [facility]ALTHCARE LAB Device ID [id number] 10/15/2024 8:49 PM EDT [facility] Specimen Type POC Capillary 10/15/2024 8:49 PM EDT [facility] Blood Capillary blood specimen / Unknown 10/15/2024 8:48 PM EDT 10/15/2024 8:49 PM EDT us Unknown Claudia Cali MD LAB POINT OF C ARE TEST DOCKED DEVICE UNSOLICITED RESULTS Final Result [facility] [address] [place] [address] * (ABNORMAL) POCT glucose meter (10/15/2024 5:43 [...] 10/15/2024 5:44 PM EDT [facility] Behavioral Technician ID Sophia Stokes 5:44 PM EDT [facility]ALTH[facility]ARE LAB Device ID [id number] 10/15/2024 5:44 PM EDT [facility] Specimen Type POC Capillary 10/15/2024 5:44 PM EDT [facility] Blood Capillary blood specimen / Unknown 10/15/2024 5:43 PM EDT 10/15/2024 5:44 PM EDT us Unknown Claudia Cali MD LAB POINT OF C ARE TEST DOCKED DEVICE UNSOLICITED RESULTS Final Result Performing Organization Address [facility] de Phone Number [facility] [address] [place] [address] * PERIPHERAL IV ([employer] LINK) (10/15/2024 2:18 [...] POCT glucose meter (10/15/2024 12:20 PM EDT) [facility] POCT Glucose 287(H) 74 - 99 mg/dL [...] Comment 10/15/2024 12:22 PM EDT [facility] Behavioral Technician ID Sophia Stokes 12:22 PM EDT [facility]ALTH[facility]ARE LAB Device ID [id number] 10/15/2024 12:22 PM EDT [facility] Specimen Type POC Capillary 10/15/2024 12:22 PM EDT [facility] Blood Capillary blood specimen / Unknown 10/15/2024 12:20 PM EDT 10/15/2024 12:22 PM EDT us Unknown Claudia Cali MD LAB POINT OF C ARE TEST DOCKED DEVICE UNSOLICITED RESULTS Final Result Performing Organization Address City/State/[facility] Co de Phone Number [facility] [address] [place] [address] * (ABNORMAL) POCT glucose meter (10/15/2024 7:22 AM EDT) [facility] POCT Glucose 221(H) 74 - 99 mg/dL [...] Comment 10/15/2024 8:03 AM EDT [facility]ALTH[facility] Behavioral Technician Sophia Connell 8:03 AM EDT [facility]ALTH[facility]ARE LAB Device ID [id number] 10/15/2024 8:03 AM EDT [facility] LAB Specimen Type POC Capillary 10/15/2024 8:03 AM EDT [facility] Blood Capillary blood specimen / Unknown 10/15/2024 7:22 AM EDT 10/15/2024 8:03 AM EDT us Unknown Claudia Cali MD LAB POINT OF C ARE TEST DOCKED DEVICE UNSOLICITED RESULTS Final Result [facility] [address] [place] [address] * (ABNORMAL) Comprehensive Metabolic Panel, Plasma (10/15/2024 4:19 AM EDT) Glucose, Plasma 242(H) 74 - 99 mg/dL 10/15/2024 5:12 AM EDT [facility] BUN, Plasma 20 8 - 23 mg/dL 10/15/2024 5:12 AM EDT [facility] Creatinine, Plasma 0.64 0.60 - 1.10 mg/dL 10/15/2024 5:12 AM EDT [facility] BUN/Creatinine Ratio 31 10/15/2024 5:12 AM EDT [facility] Sodium, Plasma 137 136 - 145 mmol/L 10/15/2024 5:12 AM EDT [facility] Potassium, Plasma 4.3 3.6 - 4.9 mmol/L 10/15/2024 5:12 AM EDT [facility] Chloride, Plasma 106 97 - 107 mmol/L 10/15/2024 5:12 AM EDT [facility] CO2, Plasma 21(L) 22 - 29 mmol/L 10/15/2024 5:12 AM EDT [facility] Anion Gap 10 6 - 16 mmol/L 10/15/2024 5:12 AM EDT [facility] Total Calcium, Plasma 7.5(L) 8.9 - 10.2 mg/dL 10/15/2024 5:12 AM EDT [facility] Total Protein 5.2(L) 6.3 - 7.9 g/dL 10/15/2024 5:12 AM EDT [facility] Albumin, Plasma 2.8(L) 3.5 - 5.2 g/dL 10/15/2024 5:12 AM EDT [facility] AST, Plasma 17 10 - 35 U/L 10/15/2024 5:12 AM EDT [facility] ALT, Plasma 24 10 - 35 U/L 10/15/2024 5:12 AM EDT [facility] Alkaline Phosphatase, Plasma 72 46 - 142 U/L 10/15/2024 5:12 AM EDT [facility] Total Bilirubin, Plasma 0.3 0.2 - 1.1 mg/dL 10/15/2024 5:12 AM EDT [facility] eGFRcr 99.4 mL/min/1.7 3m*2 10/15/2024 5:12 AM EDT [facility] Comment:Reported eGFRcr in m L/min/1.73m2 is based the CKD-EPI 2020 equation that does not use a race coefficient. Blood Venous blood specimen / Unknown Venipuncture / Unknown 10/15/2024 4:19 AM EDT 10/15/2024 4:41 AM EDT us Hyacinth Perkins MD LAB BLOOD ORDERABLES Final Res ult [facility] [address] [place] [address] * (ABNORMAL) CBC and Differential (10/15/2024 4:19 AM EDT) WBC Count 0.45(LL) 3.70 - 10.30 10*3/uL LAB HEMATOLOGY METHOD 10/15/2024 5:48 AM EDT [facility] RBC Count 2.71(L) 3.90 - 5.20 10*6/uL LAB HEMATOLOGY METHOD 10/15/2024 5:48 AM EDT [facility] HGB 8.2(L) 11.2 - 15.7 g/dL LAB HEMATOLOGY METHOD 10/15/2024 5:48 AM EDT [facility] HCT 26.2(L) 34.0 - 45.0 % LAB HEMATOLOGY METHOD 10/15/2024 5:48 AM EDT [facility] Platelet Count 43(L) 155 - 369 10*3/uL LAB HEMATOLOGY METHOD 10/15/2024 5:48 AM EDT [facility] MCV 97 79 - 98 fL LAB HEMATOLOGY METHOD 10/15/2024 5:48 AM EDT [facility] MCH 30.3 26.0 - 32.0 pg LAB HEMATOLOGY METHOD 10/15/2024 5:48 AM EDT [facility] MCHC 31.3 30.7 - 35.5 g/dL LAB HEMATOLOGY METHOD 10/15/2024 5:48 AM EDT [facility] RDW 14.9(H) 11.5 - 14.5 % LAB HEMATOLOGY METHOD 10/15/2024 5:48 AM EDT [facility] MPV 10.5 8.8 - 12.5 fL LAB HEMATOLOGY METHOD 10/15/2024 5:48 AM EDT [facility] nRBC 0.0 <=0.0 per 100 WBCs LAB HEMATOLOGY METHOD 10/15/2024 5:48 AM EDT [facility] Differential Type Automated LAB HEMATOLOGY METHOD 10/15/2024 5:48 AM EDT [facility] Neutrophils % 7 % LAB HEMATOLOGY METHOD 10/15/2024 5:48 AM EDT [facility] Lymphocytes % 82 % LAB HEMATOLOGY METHOD 10/15/2024 5:48 AM EDT [facility] Monocytes % 9 % LAB HEMATOLOGY METHOD 10/15/2024 5:48 AM EDT [facility] Eosinophils % 2 % LAB HEMATOLOGY METHOD 10/15/2024 5:48 AM EDT [facility] Basophils % 0 % LAB HEMATOLOGY METHOD 10/15/2024 5:48 AM EDT [facility] Immature Granulocytes % 0 % LAB HEMATOLOGY METHOD 10/15/2024 5:48 AM EDT [facility] Neutrophils Absolute 0.03(LL) 1.60 - 6.10 10*3/uL LAB HEMATOLOGY METHOD 10/15/2024 5:48 AM EDT [facility] Comment:Marked Leukopenia. A utomated Differential verified by slide scan. Lymphocytes Absolute 0.37(L) 1.20 - 3.90 10*3/uL LAB HEMATOLOGY METHOD 10/15/2024 5:48 AM EDT [facility] Monocytes Absolute 0.04(L) 0.30 - 0.90 10*3/uL LAB HEMATOLOGY METHOD 10/15/2024 5:48 AM EDT [facility] Eosinophils Absolute 0.01 0.00 - 0.50 10*3/uL LAB HEMATOLOGY METHOD 10/15/2024 5:48 AM EDT [facility] Basophils Absolute 0.00 0.00 - 0.10 10*3/uL LAB HEMATOLOGY METHOD 10/15/2024 5:48 AM EDT [facility] Immature Granulocytes Absolute 0.00 0.00 - 0.06 10*3/uL LAB HEMATOLOGY METHOD 10/15/2024 5:48 AM EDT [facility] Blood Venous blood specimen / Unknown Venipuncture / Unknown 10/15/2024 4:19 AM EDT 10/15/2024 4:43 AM EDT Narrative [facility] - 10/15/2024 5:48 AM EDT Therapeutic decision making should be based on absolute values, rather than percentages. us Hyacinth Perkins MD LAB BLOOD ORDERABLES Final Res ult [facility] [address] [place] [address] * ECG Adult (10/14/2024 8:37 PM EDT) EKG DIAGNOSIS CLASS Abnormal MUSE ECG Ventricular Rate 140 BPM MUSE ECG QRSD Interval 86 ms MUSE ECG QT Interval 292 ms MUSE ECG QTC Interval 445 ms MUSE ECG R [place] -4 degrees MUSE ECG T Wave [place] 44 degrees MUSE ECG Diagnosis Atrial fibrillation [...] POCT glucose meter (10/14/2024 8:20 PM EDT) [facility] POCT Glucose 213(H) 74 - 99 mg/dL [...] 10/14/2024 8:22 PM EDT [facility] Behavioral Technician ID Debbi Cantu 10/14/2024 8:22 PM EDT [facility] Device ID [id number] 10/14/2024 8:22 PM EDT [facility] Specimen Type POC Capillary 10/14/2024 8:22 PM [facility]T [facility] Blood Capillary blood specimen / Unknown 10/14/2024 8:20 PM EDT 10/14/2024 8:22 PM EDT Hyacinth Perkins MD LAB POINT OF CARE TE ST DOCKED DEVICE UNSOLICITED RESULTS Final Result [facility] [address] [place] [address] * (ABNORMAL) POCT glucose meter (10/14/2024 5:49 PM EDT) [facility] POCT Glucose 203(H) 74 - 99 mg/dL [...] 10/14/2024 5:51 PM EDT [facility] Behavioral Technician ID Cynthia Meza 025 5:51 PM EDT [facility] Device ID [id number] 10/14/2024 5:51 PM EDT [facility] Specimen Type POC Capillary 10/14/2024 5:51 PM EDT [facility] Blood Capillary blood specimen / Unknown 10/14/2024 5:49 PM EDT 10/14/2024 5:51 PM EDT us Hyacinth Perkins MD LAB POINT OF CARE TE ST DOCKED DEVICE UNSOLICITED RESULTS Final Result Performing Organization Address [facility] Co de Phone Number [facility] [address] [place] [address] * (ABNORMAL) Vancomycin, Peak, Plasma Please draw ~2 hours after 0600 dose of vancomycin administeredon 10/14/24 finishes infusing. Consider obtaining level via peripheral stick. If peripheral stick isnot feasible, please ensure that line is flushed well prio... (10/14/2024 2:33 PM EDT) Vancomycin, Peak, Plasma 9.2(L) 20.0 - 40.0 ug/mL 10/14/2024 3:56 PM EDT [facility] Blood Venous blood specimen / Unknown Venipuncture / Unknown 10/14/2024 2:33 PM EDT 10/14/2024 2:39 PM EDT Narrative [facility] - 10/14/2024 3:56 PM EDT Therapeutic Peak level: 20-40ug/mL Supra-therapeutic Peak level: >40 ug/mL us Hyacinth Perkins MD LAB BLOOD ORDERABLES Final Res ult Performing Organization Address [facility] Co de Phone Number [facility] [address] [place] [address] * (ABNORMAL) Prothrombin Time/INR (10/14/2024 11:06 AM EDT) Prothrombin Time 14.9(H) 12.0 - 14.3 sec LAB COAGULATION METHOD 10/14/2024 11:45 AM EDT [facility] INR 1.2(H) 0.9 - 1.1 LAB COAGULATION METHOD 10/14/2024 11:45 AM EDT [facility] Blood Venous blood specimen / Unknown Venipuncture / Unknown 10/14/2024 11:06 AM EDT 10/14/2024 11:25 AM EDT Narrative [facility] - 10/14/2024 11:45 AM EDT OPTIMAL INR RANGES FOR PATIENT ON ORAL ANTICOAGULANT THERAPY Prevention of venous thromboembolism INR 2.0 to 3.0 In patients with heart disease: Atrial fibrillation INR 2.0 to 3.0 Valvular heart disease INR 2.0 to 3.0 Tissue heart valves INR 2.0 to 3.0 Mechanical prosthetic valves INR 2.5 to 3.5 Prevention of recurrent [place] INR 2.5 to 3.5 us Lisa RAMOS LAB BLOOD ORDERABLES Final Re sult [facility] [address] [place] [address] * PERIPHERAL IV (SMARTFORM LINK) (10/14/2024 10:55 [...] AM COMPARISON: MR head reviewed from 10/09/24. [employer] SOFTWARE DEVELOPER: Lisa Romano PA-C SECONDARY ENGLISH LANGUAGE LEARNER TUTOR: Dr. Gaby Ponce CONTRAST: 0 cc MEDICATIONS: [...] AM COMPARISON: MR head reviewed from 10/09/24. [employer] SOFTWARE DEVELOPER: Lisa Romano PA-C SECONDARY ENGLISH LANGUAGE LEARNER TUTOR: Dr. Gaby Ponce CONTRAST: 0 cc MEDICATIONS: [...] this written report. Preliminary report signed by Lias Romano on 10/14/2024 11:20 AM By electronically [...] Detected Not Detected 10/14/2024 3:51 PM EDT [facility] Haemophilus influenzae PCR Result Not Detected Not Detected 10/14/2024 3:51 PM EDT [facility] Listeria monocytogenes PCR Result Not Detected Not Detected 10/14/2024 3:51 PM EDT [facility] Neisseria meningitidis PCR Result Not Detected Not Detected 10/14/2024 3:51 PM EDT [facility] Streptococcus agalactiae PCR Result Not Detected Not Detected 10/14/2024 3:51 PM EDT [facility] Streptococcus pneumoniae PCR Result Not Detected Not Detected 10/14/2024 3:51 PM EDT [facility] Cytomegalovirus (CMV) PCR Result Not Detected Not Detected 10/14/2024 3:51 PM EDT [facility] Enterovirus (EV) PCR Result Not Detected Not Detected 10/14/2024 3:51 PM EDT [facility] Herpes Simplex Virus 1 (HSV-1) PCR Result Not Detected Not Detected 10/14/2024 3:51 PM EDT [facility] Herpes Simplex Virus 2 (HSV-2) PCR Result Not Detected Not Detected 10/14/2024 3:51 PM EDT [facility] Human Herpes Virus 6 (HHV-6) PCR Result Not Detected Presumptive Negative 10/14/2024 3:51 PM EDT [facility] Human Parechovirus (HPeC) PCR Result Not Detected Not Detected 10/14/2024 3:51 PM EDT [facility] Varicella Zoster Virus (VZV) PCR Result Not Detected Not Detected 10/14/2024 3:51 PM EDT [facility] Cryptococcus neoformans/gattii PCR Result Not Detected Not Detected 10/14/2024 3:51 PM EDT [facility] Cerebrospinal Fluid Lumbar puncture / Unknown Non-blood Collection / Unknown 10/14/2024 10:24 AM EDT 10/14/2024 10:55 AM EDT Narrative [facility] - 10/14/2024 3:51 PM EDT This [...] ORD ERABLES Final Result Performing Organization Address City/[facility] Co de Phone Number [address] [address] * Fungal Culture, Cerebrospinal Fluid (CSF) and Emily Ink (10/14/2024 10:24 AM EDT) Culture No Fungal Growth at 3 Weeks 11/04/2024 10:05 AM EDT [facility] Emily Ink No fungal elements seen 11/04/2024 10:05 AM EDT [facility] Cerebrospinal Fluid Lumbar puncture / Unknown Non-blood Collection / Unknown 10/14/2024 10:24 AM EDT 10/14/2024 10:55 AM EDT us Hyacinth Perkins MD LAB MICROBIOLOGY - GENERAL ORD ERABLES Final Result Performing Organization Address City/[facility]/ZIP Co de Phone Number [facility] [address] [place] [address] * Cryptococcal Antigen, CSF (10/14/2024 10:24 AM EDT) Pathologist [facility] Cryptococcal Antigen Result (CSF) Negative Negative 10/14/2024 3:50 PM EDT [facility] Cerebrospinal Fluid Lumbar puncture / Unknown Non-blood Collection / Unknown 10/14/2024 10:24 AM EDT 10/14/2024 10:55 AM EDT us Hyacinth Perkins MD LAB MICROBIOLOGY - GENERAL ORD [place] [address] * Cerebrospinal Fluid (CSF) Culture and Gram Stain (10/14/2024 10:24 AM EDT) Pathologist [facility] Culture No growth at day 4 2024 8:24 AM EDT [facility] Gram Stain No polymorphonuclear leukocytes seen 10/17/2024 8:24 AM EDT [facility] Gram Stain No organisms seen 025 8:24 AM EDT [facility] Cerebrospinal Fluid Lumbar puncture / Unknown Non-blood Collection / Unknown 10/14/2024 10:24 AM EDT 10/14/2024 10:55 AM EDT us Hyacinth Perkins MD LAB MICROBIOLOGY - GENERAL ORD ERABLES Final Result [facility] [address] [place] [address] * HUYEN Polyoma Virus Quantitative by PCR, CSF (10/14/2024 10:24 AM EDT) Pathologist [facility] HUYEN POLYOMA VIRUS DNA, QN,CSF Not Detected Not Detected copies/mL 10/15/2024 6:34 PM EDT [facility]) Comment: Assay Range: 72 copies/mL to 1.00E+08 copies/mL The limit of quantitation (LOQ) is 72 copies/mL. HUYEN virus DNA detected below the LOQ will be reported as Detected:<72 copies/mL. This test was developed and its performance characteristics determined by [facility]. It has not been cleared or approved by the U.S. Food and Drug Administration. Results should be used in conjunction with clinical findings, and should not form the sole basis for a diagnosis or treatment decision. Testing Performed at: [facility] [address] [place] [address] Marketing Research Coordinator: Anatoly Turk PhD SUNITA (ABB) CLIA # [id number] FLAG Interpretation: A = Abnormal, H = High, L = Low Cerebrospinal Fluid Cerebrospinal fluid specimen / Unknown Non-blood Collection / Unknown 10/14/2024 10:24 AM EDT 10/14/2024 11:01 AM EDT Narrative ALLIE (ALEX) - 10/15/2024 6:34 PM EDT Release to patient in [facility]->Immediate Hyacinth Perkins MD LAB BODY FLUIDS AND STOOLS ORD ERABLES Final Result ALLIE Ahometo) * MADINA ALMANZA DNA BY PCR(CSF) (SO) [...] developed and its performance characteristics determined by [employer]. It has not been cleared or approved by the U.S. Food and Drug Administration. Results should be used in conjunction with clinical findings, and should not form the sole basis for a diagnosis or treatment decision. Testing Performed at: [facility] [address] [place] [id number] Marketing Research Coordinator: Antaoly Turk, PhD SUNITA (ABB) CLIA # [id number] FLAG Interpretation: A = Abnormal, H = High, L = Low Cerebrospinal Fluid Cerebrospinal fluid specimen / Unknown Non-blood Collection / Unknown 10/14/2024 10:24 AM EDT 10/14/2024 11:01 AM EDT Su FINK) - 10/15/2024 8:27 PM EDT Release to patient in [facility]->Immediate Hyacinth Perkins MD LAB BODY FLUIDS AND STOOLS ORD ERABLES Final Result ALLIE FINK) * West Nile virus, CSF (10/14/2024 10:24 AM EDT) WEST NILE VIRUS AB,IGG,CSF 0.01 <=1.29 IV 10/17/2024 7:33 AM EDT [facility] ([employer] WEST NILE VIRUS AB,IGM,CSF 0.00 <=0.89 IV 10/17/2024 7:33 AM EDT [facility] (ALEX) Cerebrospinal Fluid Cerebrospinal fluid specimen / Unknown Non-blood Collection / Unknown 10/14/2024 10:24 AM EDT 10/14/2024 11:01 AM EDT [facility] (ALEX) - 10/17/2024 7:33 AM EDT [...] members of the Flaviviridae family, such as Brunswick encephalitis virus, show extensive cross-reactivity with West [...] developed and its performance characteristics determined by [facility]. It has not been cleared or approved [...] members of the Flaviviridae family, such as Brunswick encephalitis virus, show extensive cross-reactivity with West [...] developed and its performance characteristics determined by [facility]. It has not been cleared or approved by the [place] Food and Drug Administration. This test was performed in a CLIA certified laboratory and is intended for clinical purposes. Performed By: [facility] [address] [place] [id number] Bleach Packer: Manuel Mas MD, PhD CLIA Number: [id number] us Hyacinth Perkins MD LAB BLOOD ORDERABLES Final Res ult [facility] ([facility]EL[facility]) [address] [place] [address] * Lactate Dehydrogenase Total, Body Fluid (SO) (10/14/2024 10:24 AM EDT) Lactate Dehydrogenase Total, Body Fluid 21 U/L 10/16/2024 12:07 AM EDT [facility] (ALEX) LDH Fluid Source CSF 10/17/19 12:07 AM EDT [facility] (ALEX) Cerebrospinal Fluid Non-blood Collection / Unknown 10/14/2024 10:24 AM EDT 10/14/2024 11:01 AM EDT Narrative [facility] (ALEX) - 10/16/2024 12:07 AM EDT INTERPRETIVE INFORMATION: Lactate Dehydrogenase Total, Body Fluid For information on body fluid reference ranges and/or interpretive guidance visit [email or web address]/ This test was developed and its performance characteristics determined by [facility]. It has not been cleared or approved by the US Food and Drug Administration. This test was performed in a CLIA certified laboratory and is intended for clinical purposes. Performed By: [facility] [address] [place] [address] Bleach Packer: Manuel Mas MD, PhD CLIA Number: [id number] Hyacinth Perkins MD LAB REF LAB BLOOD AND FLUID OR D Final Result [facility] [address] [place], [place] [id number] * Protein, CSF (10/14/2024 10:24 AM EDT) Total Protein, CSF 31 15 - 45 mg/dL 10/14/2024 12:15 PM EDT [facility] Cerebrospinal Fluid Lumbar puncture / Unknown Non-blood Collection / Unknown 10/14/2024 10:24 AM EDT 10/14/2024 11:01 AM EDT Narrative [facility] - 10/14/2024 12:15 PM EDT Blood, when present in CSF, invalidates protein. Interpret results in the context of the patient's condition and other laboratory results. us Hyacinth Perkins MD LAB BODY FLUIDS AND STOOLS ORD ERABLES Final Result Performing Organization Address [facility]/ZIP Co de Phone Number [facility] [address] [place] [address] * (ABNORMAL) Glucose, CSF (10/14/2024 10:24 AM EDT) Glucose, CSF 89(H) 41 - 70 mg/dL 10/14/2024 12:15 PM EDT [facility] Cerebrospinal Fluid Lumbar puncture / Unknown Non-blood Collection / Unknown 10/14/2024 10:24 AM EDT 10/14/2024 11:01 AM EDT Narrative [facility] - 10/14/2024 12:15 PM EDT CSF glucose values should be approximately 60 % of the plasma values and must always be compared with concurrently measured plasma values for adequate clinical interpretation. No reference ranges have been established for pediatric patients. Hyacinth Perkins MD LAB BODY FLUIDS AND STOOLS ORD ERABLES Final Result Performing Organization Address [facility] Co de Phone Number [facility] [address] [place] [address] * CSF Cell Count W/O Diff (10/14/2024 10:24 AM EDT) Unspun Color, CSF Colorless Colorless LAB HEMATOLOGY METHOD 10/14/2024 12:10 PM EDT [facility] Unspun Clarity, CSF Clear Clear LAB HEMATOLOGY METHOD 10/14/2024 12:10 PM EDT [facility] Spun Color, CSF LAB HEMATOLOGY METHOD 10/14/2024 12:10 PM EDT [facility] Comment:Test Not Indicated Spun Clarity, CSF LAB HEMATOLOGY METHOD 10/14/2024 12:10 PM EDT [facility] Comment:Test Not Indicated Volume CSF 3.0 cc LAB HEMATOLOGY METHOD 10/14/2024 12:10 PM EDT [facility] Tube Number, CSF Tube 1 LAB HEMATOLOGY METHOD 10/14/2024 12:10 PM EDT [facility] Total Nucleated Cell Count, CSF 2 0 - 5 L LAB HEMATOLOGY METHOD 10/14/2024 12:10 PM EDT [facility] Comment:Test performed by cecy chávez. Red Blood Cell Count, CSF 1 0 uL uL LAB HEMATOLOGY METHOD 10/14/2024 12:10 PM EDT [facility] Comment:Test performed by ma lamal method. Cerebrospinal Fluid Lumbar puncture / Unknown Non-blood Collection / Unknown 10/14/2024 10:24 AM EDT 10/14/2024 10:59 AM EDT us Hyacinth Perkins MD LAB BODY FLUIDS AND STOOLS ORD ERABLES Final Result [facility] [address] [place] [address] * CSF Cell Count w/ Manual Differential (10/14/2024 10:24 AM EDT) Unspun Color, CSF Colorless Colorless LAB HEMATOLOGY METHOD 10/14/2024 12:19 PM EDT [facility] Unspun Clarity, CSF Clear Clear LAB HEMATOLOGY METHOD 10/14/2024 12:19 PM EDT [facility] Spun Color, CSF LAB HEMATOLOGY METHOD 10/14/2024 12:19 PM EDT [facility] Comment:Test Not Indicated Spun Clarity, CSF LAB HEMATOLOGY METHOD 10/14/2024 12:19 PM EDT [facility] Comment:Test Not Indicated Volume CSF 4.0 cc LAB HEMATOLOGY METHOD 10/14/2024 12:19 PM EDT [facility] Tube Number, CSF Tube 4 LAB HEMATOLOGY METHOD 10/14/2024 12:19 PM EDT [facility] Red Blood Cell Count, CSF 0 0 uL uL LAB HEMATOLOGY METHOD 10/14/2024 12:19 PM EDT [facility] Comment:Test performed by ma nual method. Total Nucleated Cell Count, CSF 2 0 - 5 L LAB HEMATOLOGY METHOD 10/14/2024 12:19 PM EDT [facility] Comment:Test performed by ma nual method. Neutrophils %, CSF LAB HEMATOLOGY METHOD 10/14/2024 12:19 PM EDT [facility] Comment:Too few to count Lymphocytes %, CSF LAB HEMATOLOGY METHOD 10/14/2024 12:19 PM EDT [facility] Comment:Too few to count Monocytes/Macro phages %, CSF LAB HEMATOLOGY METHOD 10/14/2024 12:19 PM EDT [facility] Comment:Too few to count Eosinophils %, CSF LAB HEMATOLOGY METHOD 10/14/2024 12:19 PM EDT [facility] Comment:Too few to count Basophils %, CSF LAB HEMATOLOGY METHOD 10/14/2024 12:19 PM EDT [facility] Comment:Too few to count Neutrophils Absolute, CSF LAB HEMATOLOGY METHOD 10/14/2024 12:19 PM EDT [facility] Comment:Too few to count Lymphocytes Absolute, CSF LAB HEMATOLOGY METHOD 10/14/2024 12:19 PM EDT [facility] Comment:Too few to count Monocytes/Macro phages Absolute, CSF LAB HEMATOLOGY METHOD 10/14/2024 12:19 PM EDT [facility] Comment:Too few to count Eosinophils Absolute, CSF LAB HEMATOLOGY METHOD 10/14/2024 12:19 PM EDT [facility] Comment:Too few to count Basophils Absolute, CSF LAB HEMATOLOGY METHOD 10/14/2024 12:19 PM EDT [facility] Comment:Too few to count Cerebrospinal Fluid Lumbar puncture / Unknown Non-blood Collection / Unknown 10/14/2024 10:24 AM EDT 10/14/2024 10:59 AM EDT Hyacinth Perkins MD LAB BODY FLUIDS AND STOOLS ORD ERABLES Final Result [facility] [address] [place] [address] * Non-Gynecologic Cytology (10/14/2024 10:24 AM EDT) Case Report Cytology Case: [id number] Authorizing Provider: Hyacinth Perkins MD Collected: 10/14/2024 1024 Ordering Location: [facility] A Emergency Department Received: 10/14/2024 1353 Pathologist: Miryam Navarro MD Specimen: Cerebrospinal Fluid, CEREBROSPINAL FLUID 10/17/2024 4:58 PM EDT [facility] Final Diagnosis A. CEREBROSPINAL FLUID: - NO EVIDENCE OF MALIGNANCY. 10/17/2024 4:58 PM EDT [facility] at 1658 EDT Clinical History H/O SCLC, mets to brain 10/17/2024 4:58 PM EDT [facility] Previous Cancer Yes 10/17/2024 4:58 PM EDT [facility] Previous Cancer Primary Site Lung Cancer 10/17/2024 4:58 PM EDT [facility] Gross Description A. CEREBROSPINAL FLUID 8 ml's clear fluid, 3 ml's tube one, 0.5 ml's tube two, 1.5 ml's tube three and 3 ml's tube four processed as thin prep 10/17/2024 4:58 PM EDT [facility] Cerebrospinal Fluid Cerebrospinal fluid specimen / Unknown Non-blood Collection / Unknown 10/14/2024 10:24 AM EDT 10/14/2024 1:53 PM EDT Result Arlet Perkins MD LAB CYTOLOGY ORDERABLES Final Result Performing Organization Address [facility] Co de Phone Number [facility] [address] [place] [address] * CSF Panel (10/14/2024 10:24 AM EDT) Cerebrospinal Fluid Lumbar puncture / Unknown Non-blood Collection / Unknown 10/14/2024 10:24 AM EDT 10/14/2024 10:55 AM EDT us Hyacinth Perkins MD LAB BODY FLUIDS AND STOOLS ORD ERABLES Final Result Performing Organization Address [facility] Co de Phone Number [facility] [address] [place] [address] * CSF Panel (10/14/2024 10:24 AM EDT) Cerebrospinal Fluid Lumbar puncture / Unknown Non-blood Collection / Unknown 10/14/2024 10:24 AM EDT 10/14/2024 10:55 AM EDT Result Arlet Perkins MD LAB BODY FLUIDS AND STOOLS ORD ERABLES Final Result Performing Organization Address City/[facility]/ZIP Co de Phone Number [facility] [address] [place] [address] * (ABNORMAL) POCT glucose meter (10/14/2024 9:37 AM EDT) [facility] POCT Glucose 139(H) 74 - 99 mg/dL [...] Comment 10/14/2024 9:54 AM EDT [facility] Behavioral Technician ID Michelle Carranza 10/14/2024 9:54 AM EDT [facility] Device ID [id number] 10/14/2024 9:54 AM EDT [facility] Specimen Type POC Capillary 10/14/2024 9:54 AM EDT [facility] Blood Capillary blood specimen / Unknown 10/14/2024 9:37 AM EDT 10/14/2024 9:54 AM EDT Hyacinth Perkins MD LAB POINT OF CARE TE ST DOCKED DEVICE UNSOLICITED RESULTS Final Result [facility] [address] [place] [id number] * (ABNORMAL) Vancomycin, Trough, Plasma Please draw ~30 minutes prior to dose due at 0600 on 10/14/24.Please do NOT hold dose awaiting level to return. Consider obtaining level via peripheral stick. Ifperipheral stick is not feasible, please ensure that line ... (10/14/2024 5:46 AM EDT) [facility] Vancomycin, Trough, Plasma 6.6(L) 10.0 - 20.0 ug/mL 10/14/2024 7:09 AM EDT [facility] Blood Venous blood specimen / Unknown Venipuncture / Unknown 10/14/2024 5:46 AM EDT 10/14/2024 5:53 AM EDT Narrative [facility] - 10/14/2024 7:09 AM EDT Therapeutic Trough level: 10-20ug/mL Supra-therapeutic Trough level: >20 ug/mL us Hyacinth Perkins MD LAB BLOOD ORDERABLES Final Res ult [facility] [address] [place] [address] * (ABNORMAL) CBC and Differential (10/14/2024 5:46 AM EDT) WBC Count 0.40(LL) 3.70 - 10.30 10*3/uL LAB HEMATOLOGY METHOD 10/14/2024 11:39 AM EDT [facility] RBC Count 2.96(L) 3.90 - 5.20 10*6/uL LAB HEMATOLOGY METHOD 10/14/2024 11:39 AM EDT [facility] HGB 9.2(L) 11.2 - 15.7 g/dL LAB HEMATOLOGY METHOD 10/14/2024 11:39 AM EDT [facility] HCT 27.6(L) 34.0 - 45.0 % LAB HEMATOLOGY METHOD 10/14/2024 11:39 AM EDT [facility] Platelet Count 47(L) 155 - 369 10*3/uL LAB HEMATOLOGY METHOD 10/14/2024 11:39 AM EDT [facility] MCV 93 79 - 98 fL LAB HEMATOLOGY METHOD 10/14/2024 11:39 AM EDT [facility] MCH 31.1 26.0 - 32.0 pg LAB HEMATOLOGY METHOD 10/14/2024 11:39 AM EDT [facility] MCHC 33.3 30.7 - 35.5 g/dL LAB HEMATOLOGY METHOD 10/14/2024 11:39 AM EDT [facility] RDW 14.7(H) 11.5 - 14.5 % LAB HEMATOLOGY METHOD 10/14/2024 11:39 AM EDT [facility] MPV 10.3 8.8 - 12.5 fL LAB HEMATOLOGY METHOD 10/14/2024 11:39 AM EDT [facility] nRBC 0.0 <=0.0 per 100 WBCs LAB HEMATOLOGY METHOD 10/14/2024 11:39 AM EDT [facility] Differential Type Automated LAB HEMATOLOGY METHOD 10/14/2024 11:39 AM EDT [facility] Neutrophils % 5 % LAB HEMATOLOGY METHOD 10/14/2024 11:39 AM EDT [facility] Lymphocytes % 90 % LAB HEMATOLOGY METHOD 10/14/2024 11:39 AM EDT [facility] Monocytes % 5 % LAB HEMATOLOGY METHOD 10/14/2024 11:39 AM EDT [facility] Eosinophils % 0 % LAB HEMATOLOGY METHOD 10/14/2024 11:39 AM EDT [facility] Basophils % 0 % LAB HEMATOLOGY METHOD 10/14/2024 11:39 AM EDT [facility] Immature Granulocytes % 0 % LAB HEMATOLOGY METHOD 10/14/2024 11:39 AM EDT [facility] Neutrophils Absolute 0.02(LL) 1.60 - 6.10 10*3/uL LAB HEMATOLOGY METHOD 10/14/2024 11:39 AM EDT [facility] Comment:Marked Leukopenia. A utomated Differential verified by slide scan. Lymphocytes Absolute 0.36(L) 1.20 - 3.90 10*3/uL LAB HEMATOLOGY METHOD 10/14/2024 11:39 AM EDT [facility] Monocytes Absolute 0.02(L) 0.30 - 0.90 10*3/uL LAB HEMATOLOGY METHOD 10/14/2024 11:39 AM EDT [facility] Eosinophils Absolute 0.00 0.00 - 0.50 10*3/uL LAB HEMATOLOGY METHOD 10/14/2024 11:39 AM EDT [facility] Basophils Absolute 0.00 0.00 - 0.10 10*3/uL LAB HEMATOLOGY METHOD 10/14/2024 11:39 AM EDT [facility] Immature Granulocytes Absolute 0.00 0.00 - 0.06 10*3/uL LAB HEMATOLOGY METHOD 10/14/2024 11:39 AM EDT [facility] Blood Venous blood specimen / Unknown Venipuncture / Unknown 10/14/2024 5:46 AM EDT 10/14/2024 5:55 AM EDT [facility] - 10/14/2024 11:39 AM EDT Therapeutic decision making should be based on absolute values, rather than percentages. Vesna Barcenas MD LAB BLOOD ORDERABLES Final R esult [facility] [address] [place] [address] * (ABNORMAL) Basic Metabolic Panel, Plasma (10/14/2024 5:46 AM EDT) Glucose, Plasma 164(H) 74 - 99 mg/dL 10/14/2024 6:57 AM EDT [facility] BUN, Plasma 17 8 - 23 mg/dL 10/14/2024 6:57 AM EDT [facility] Creatinine, Plasma 0.54(L) 0.60 - 1.10 mg/dL 10/14/2024 6:57 AM EDT [facility] BUN/Creatinine Ratio 31 10/14/2024 6:57 AM EDT [facility] Sodium, Plasma 140 136 - 145 mmol/L 10/14/2024 6:57 AM EDT [facility] Potassium, Plasma 4.1 3.6 - 4.9 mmol/L 10/14/2024 6:57 AM EDT [facility] Chloride, Plasma 105 97 - 107 mmol/L 10/14/2024 6:57 AM EDT [facility] CO2, Plasma 24 22 - 29 mmol/L 10/14/2024 6:57 AM EDT [facility] Anion Gap 11 6 - 16 mmol/L 10/14/2024 6:57 AM EDT [facility] Total Calcium, Plasma 8.0(L) 8.9 - 10.2 mg/dL 10/14/2024 6:57 AM EDT [facility] eGFRcr 103.6 mL/min/1.7 3m*2 10/14/2024 6:57 AM EDT [facility] Comment:Reported eGFRcr in m L/min/1.73m2 is based the CKD-EPI 2020 equation that does not use a race coefficient. Blood Venous blood specimen / Unknown Venipuncture / Unknown 10/14/2024 5:46 AM EDT 10/14/2024 5:53 AM EDT Vesna Barcenas MD LAB BLOOD ORDERABLES Final R esult [facility] [address] [place] [address] * (ABNORMAL) POCT glucose meter (10/13/2024 8:42 [...] Comment 10/13/2024 8:45 PM EDT [facility] Behavioral Technician ID Debbi Cantu 10/13/2024 8:45 PM EDT [facility] LAB Device ID [id number] 10/13/2024 8:45 PM EDT [facility] Specimen Type POC Capillary 10/13/2024 8:45 PM EDT [facility] Blood Capillary blood specimen / Unknown 10/13/2024 8:42 PM EDT 10/13/2024 8:45 PM EDT us Hyacinth Perkins MD LAB POINT OF CARE TE ST DOCKED DEVICE UNSOLICITED RESULTS Final Result [facility] [address] [place] [address] * CT Chest w IV Contrast (10/13/2024 [...] Comment 10/13/2024 5:56 PM EDT [facility] Behavioral Technician ID Cheryle Hall 025 5:56 PM EDT [facility]ARE LAB Device ID [id number] 10/13/2024 5:56 PM EDT [facility] Specimen Type POC Capillary 10/13/2024 5:56 PM EDT [facility] Blood Capillary blood specimen / Unknown 10/13/2024 5:55 PM EDT 10/13/2024 5:56 PM EDT us Hyacinth Perkins MD LAB POINT OF CARE TE ST DOCKED DEVICE UNSOLICITED RESULTS Final Result [facility] [address] [place] [address] * (ABNORMAL) POCT glucose meter (10/13/2024 11:26 AM EDT) [facility] POCT Glucose 131(H) 74 - 99 mg/dL [...] Comment 10/13/2024 11:28 AM EDT [facility] Behavioral Technician ID Jessie Walsh 025 11:28 AM EDT [facility] LAB Device ID [id number] 10/13/2024 11:28 AM EDT [facility] Specimen Type POC Capillary 10/13/2024 11:28 AM EDT [facility] Blood Capillary blood specimen / Unknown 10/13/2024 11:26 AM EDT 10/13/2024 11:28 AM EDT Hyacinth Perkins MD LAB POINT OF CARE TE ST DOCKED DEVICE UNSOLICITED RESULTS Final Result Performing Organization Address City/State/[facility] Co de Phone Number [facility]ARE [facility] [address] [place] [address] * (ABNORMAL) POCT glucose meter (10/13/2024 7:04 AM EDT) [facility] POCT Glucose 120(H) 74 - 99 mg/dL [...] Comment 10/13/2024 7:06 AM EDT [facility]ALTH[facility]ARE [facility] Behavioral Technician ID Jessie Walsh 025 7:06 AM EDT HEALTHCARE LAB Device ID [id number] 10/13/2024 7:06 AM EDT [facility]ARE LAB Specimen Type POC Capillary 10/13/2024 7:06 AM EDT [facility] Blood Capillary blood specimen / Unknown 10/13/2024 7:04 AM EDT 10/13/2024 7:06 AM EDT Berto Stanford DO LAB POINT OF CARE TEST DOCKED DEVICE UNSOLICITED RESULTS Final Result [facility] [address] [place] [address] * MR Head w and wo IV [...] - 1,200 mOsm/kg 10/13/2024 4:35 AM EDT [facility] Urine Urine specimen obtained by clean catch procedure / Unknown Non-blood Collection / Unknown 10/13/2024 2:33 AM EDT 10/13/2024 2:51 AM EDT Berto Stanford DO LAB URINE ORDERABLES Final Result Performing Organization Address City/[facility]/ZIP Co de Phone Number [facility] [address] [place] [address] * Sodium, urine, random (10/13/2024 2:33 AM EDT) Sodium, Urine 49 mmol/L 10/13/2024 3:10 AM EDT [facility] Urine Urine specimen obtained by clean catch procedure / Unknown Non-blood Collection / Unknown 10/13/2024 2:33 AM EDT 10/13/2024 2:51 AM EDT Berto Stanford DO LAB URINE ORDERABLES Final Result [facility] [address] [place] [address] * Streptococcus pneumoniae and Legionella Urinary Antigen (10/13/2024 2:33 AM EDT) Legionella pneumophila serogroup 1 Antigen Result (Urine) Negative Negative 10/13/2024 7:15 AM EDT [facility] Streptococcus pneumoniae Antigen Result (Urine) Negative Negative 10/13/2024 7:15 AM EDT [facility] Urine Urine specimen obtained by clean catch procedure / Unknown Non-blood Collection / Unknown 10/13/2024 2:33 AM EDT 10/13/2024 3:21 AM EDT us Shekhar Ledezma MD LAB MICROBIOLOGY - GENERAL ORDERABLES Final Result Performing Organization Address [facility] Co de Phone Number [facility] [address] [place] [address] * Urine Meek Panel (10/13/2024 2:33 AM EDT) Extra Reflex urine culture not indicated 10/13/2024 11:01 AM EDT [facility] Comment: Previously prelim verified as Specimen [...] ORDERABLES Gracia l Result Performing Organization Address City/[facility]/ZIP Co de Phone Number [facility] [address] [place] [address] * (ABNORMAL) Urinalysis with reflex microscopic (Culture NOT Included) (10/13/2024 2:33 AM EDT) Color, Urine Yellow LAB URINALYSIS - AUTOMATED METHOD 10/13/2024 2:45 AM EDT [facility] Clarity, Urine Cloudy LAB URINALYSIS - AUTOMATED METHOD 10/13/2024 2:45 AM EDT [facility] Spec [place], Urine >1.030(H) 1.005 - 1.030 LAB URINALYSIS - AUTOMATED METHOD 10/13/2024 2:45 AM EDT [facility] pH, Urine 6.0 5.0 - 8.0 LAB URINALYSIS - AUTOMATED METHOD 10/13/2024 2:45 AM EDT [facility] Protein, Urine Trace(A) Negative mg/dL LAB URINALYSIS - AUTOMATED METHOD 10/13/2024 2:45 AM EDT [facility] Glucose, Urine >=1000(A) Negative mg/dL LAB URINALYSIS - AUTOMATED METHOD 10/13/2024 2:45 AM EDT [facility] Ketones, Urine Negative Negative mg/dL LAB URINALYSIS - AUTOMATED METHOD 10/13/2024 2:45 AM EDT [facility] Blood, Urine Negative Negative LAB URINALYSIS - AUTOMATED METHOD 10/13/2024 2:45 AM EDT [facility] Bilirubin, Urine Negative Negative LAB URINALYSIS - AUTOMATED METHOD 10/13/2024 2:45 AM EDT [facility] Urobilinogen, Urine 1.0 0.2 to 1.0 mg/dL LAB URINALYSIS - AUTOMATED METHOD 10/13/2024 2:45 AM EDT [facility] Leukocytes, Urine Negative Negative LAB URINALYSIS - AUTOMATED METHOD 10/13/2024 2:45 AM EDT [facility] Nitrite, Urine Negative Negative LAB URINALYSIS - AUTOMATED METHOD 10/13/2024 2:45 AM EDT [facility] Urine Urine specimen obtained by clean catch procedure / Unknown Non-blood Collection / Unknown 10/13/2024 2:33 AM EDT 10/13/2024 2:40 AM EDT us Callie RAMOS LAB URINE ORDERABLES Gracia albarado Result [facility] [address] [place] [address] * Phosphorus (10/13/2024 1:26 AM EDT) Phosphorus, Plasma 3.8 2.5 - 4.5 mg/dL 10/13/2024 1:51 AM EDT [facility] Blood Venous blood specimen / Unknown Venipuncture / Unknown 10/13/2024 1:26 AM EDT 10/13/2024 1:29 AM EDT Berto M Stanford DO LAB BLOOD ORDERABLES Final Result Performing Organization Address City/[facility]/ZIP Co de Phone Number [facility] [address] [place] [address] * Magnesium, Plasma (10/13/2024 1:26 AM EDT) Magnesium, Plasma 2.2 1.9 - 2.4 mg/dL 10/13/2024 1:51 AM EDT [facility] Blood Venous blood specimen / Unknown Venipuncture / Unknown 10/13/2024 1:26 AM EDT 10/13/2024 1:29 AM EDT Berto Baumon LAB BLOOD ORDERABLES Final Result Performing Organization Address City/[facility] Co de Phone Number [facility] [address] [place] [address] * (ABNORMAL) Comprehensive metabolic panel (10/13/2024 1:26 AM EDT) Glucose, Plasma 90 74 - 99 mg/dL 10/13/2024 1:51 AM EDT [facility] BUN, Plasma 21 8 - 23 mg/dL 10/13/2024 1:51 AM EDT [facility] Creatinine, Plasma 0.69 0.60 - 1.10 mg/dL 10/13/2024 1:51 AM EDT [facility] BUN/Creatinine Ratio 30 10/13/2024 1:51 AM EDT [facility] Sodium, Plasma 135(L) 136 - 145 mmol/L 10/13/2024 1:51 AM EDT [facility] Potassium, Plasma 3.4(L) 3.6 - 4.9 mmol/L 10/13/2024 1:51 AM EDT [facility] Chloride, Plasma 99 97 - 107 mmol/L 10/13/2024 1:51 AM EDT [facility] CO2, Plasma 27 22 - 29 mmol/L 10/13/2024 1:51 AM EDT [facility] Anion Gap 9 6 - 16 mmol/L 10/13/2024 1:51 AM EDT [facility] Total Calcium, Plasma 8.3(L) 8.9 - 10.2 mg/dL 10/13/2024 1:51 AM EDT [facility] Total Protein 5.5(L) 6.3 - 7.9 g/dL 10/13/2024 1:51 AM EDT [facility] Albumin, Plasma 2.9(L) 3.5 - 5.2 g/dL 10/13/2024 1:51 AM EDT [facility] AST, Plasma 17 10 - 35 U/L 10/13/2024 1:51 AM EDT [facility] ALT, Plasma 25 10 - 35 U/L 10/13/2024 1:51 AM EDT [facility] Alkaline Phosphatase, Plasma 63 46 - 142 U/L 10/13/2024 1:51 AM EDT [facility] Total Bilirubin, Plasma 0.6 0.2 - 1.1 mg/dL 10/13/2024 1:51 AM EDT [facility] eGFRcr 97.7 mL/min/1.7 3m*2 10/13/2024 1:51 AM EDT [facility] Comment:Reported eGFRcr in m L/min/1.73m2 is based the CKD-EPI 2020 equation that does not use a race coefficient. Blood Venous blood specimen / Unknown Venipuncture / Unknown 10/13/2024 1:26 AM EDT 10/13/2024 1:29 AM EDT us Berto Stanford DO LAB BLOOD ORDERABLES Final Result [facility] [address] [place] [address] * (ABNORMAL) CBC and Differential (10/13/2024 1:26 AM EDT) WBC Count 0.53(LL) 3.70 - 10.30 10*3/uL LAB HEMATOLOGY METHOD 10/13/2024 3:38 AM EDT [facility] RBC Count 3.32(L) 3.90 - 5.20 10*6/uL LAB HEMATOLOGY METHOD 10/13/2024 3:38 AM EDT [facility] HGB 10.1(L) 11.2 - 15.7 g/dL LAB HEMATOLOGY METHOD 10/13/2024 3:38 AM EDT [facility] HCT 31.3(L) 34.0 - 45.0 % LAB HEMATOLOGY METHOD 10/13/2024 3:38 AM EDT [facility] Platelet Count 41(L) 155 - 369 10*3/uL LAB HEMATOLOGY METHOD 10/13/2024 3:38 AM EDT [facility] MCV 94 79 - 98 fL LAB HEMATOLOGY METHOD 10/13/2024 3:38 AM EDT [facility] MCH 30.4 26.0 - 32.0 pg LAB HEMATOLOGY METHOD 10/13/2024 3:38 AM EDT [facility] MCHC 32.3 30.7 - 35.5 g/dL LAB HEMATOLOGY METHOD 10/13/2024 3:38 AM EDT [facility] RDW 15.0(H) 11.5 - 14.5 % LAB HEMATOLOGY METHOD 10/13/2024 3:38 AM EDT [facility] MPV 9.1 8.8 - 12.5 fL LAB HEMATOLOGY METHOD 10/13/2024 3:38 AM EDT [facility] nRBC 0.0 <=0.0 per 100 WBCs LAB HEMATOLOGY METHOD 10/13/2024 3:38 AM EDT [facility] Differential Type Automated LAB HEMATOLOGY METHOD 10/13/2024 3:38 AM EDT [facility] Neutrophils % 6 % LAB HEMATOLOGY METHOD 10/13/2024 3:38 AM EDT [facility] Lymphocytes % 90 % LAB HEMATOLOGY METHOD 10/13/2024 3:38 AM EDT [facility] Monocytes % 2 % LAB HEMATOLOGY METHOD 10/13/2024 3:38 AM EDT [facility] Eosinophils % 0 % LAB HEMATOLOGY METHOD 10/13/2024 3:38 AM EDT [facility] Basophils % 2 % LAB HEMATOLOGY METHOD 10/13/2024 3:38 AM EDT [facility] Immature Granulocytes % 0 % LAB HEMATOLOGY METHOD 10/13/2024 3:38 AM EDT [facility] Neutrophils Absolute 0.03(LL) 1.60 - 6.10 10*3/uL LAB HEMATOLOGY METHOD 10/13/2024 3:38 AM EDT [facility] Lymphocytes Absolute 0.48(L) 1.20 - 3.90 10*3/uL LAB HEMATOLOGY METHOD 10/13/2024 3:38 AM EDT [facility] Monocytes Absolute 0.01(L) 0.30 - 0.90 10*3/uL LAB HEMATOLOGY METHOD 10/13/2024 3:38 AM EDT [facility] Eosinophils Absolute 0.00 0.00 - 0.50 10*3/uL LAB HEMATOLOGY METHOD 10/13/2024 3:38 AM EDT [facility] Basophils Absolute 0.01 0.00 - 0.10 10*3/uL LAB HEMATOLOGY METHOD 10/13/2024 3:38 AM EDT [facility] Immature Granulocytes Absolute 0.00 0.00 - 0.06 10*3/uL LAB HEMATOLOGY METHOD 10/13/2024 3:38 AM EDT [facility] Blood Venous blood specimen / Unknown Venipuncture / Unknown 10/13/2024 1:26 AM EDT 10/13/2024 1:29 AM EDT Narrative [facility] - 10/13/2024 3:38 AM EDT Therapeutic decision making should be based on absolute values, rather than percentages. Berto Stanford DO LAB BLOOD ORDERABLES Final Result [facility] [address] [place] [address] * Methicillin Resistant Staphylococcus aureus (MRSA) by PCR (10/13/2024 12:47 AM EDT) Methicillin Resistant Staphylococcus aureus (MRSA) by PCR Not Detected Not Detected 10/13/2024 3:16 AM EDT [facility] Swab Both anterior nares / Unknown Non-blood Collection / Unknown 10/13/2024 12:47 AM EDT 10/13/2024 1:57 AM EDT Narrative [facility] - 10/13/2024 3:16 AM EDT This [...] GENERAL ORDERABLES Final Result Performing Organization Address City/[facility]/ZIP Co de Phone Number [facility] [address] [place] [address] * (ABNORMAL) POCT glucose meter (10/12/2024 11:44 PM EDT) [facility] POCT Glucose 103(H) 74 - 99 mg/dL [...] Comment 10/12/2024 11:46 PM EDT [facility]ALTHCARE LAB Behavioral Technician ID Carlos Baez 10/12/2024 11:46 PM EDT HEALTH[facility]ARE LAB Device ID [id number] 10/12/2024 11:46 PM EDT [facility]ALTH[facility]ARE LAB Specimen Type POC Capillary 10/12/2024 11:46 PM EDT [facility] Blood Capillary blood specimen / Unknown 10/12/2024 11:44 PM EDT 10/12/2024 11:46 PM EDT Berto Stanford DO LAB POINT OF CARE TEST DOCKED DEVICE UNSOLICITED RESULTS Final Result Performing Organization Address [facility] Co de Phone Number [facility] [address] [place] [address] * Anti Xa Level Low Molecular Weight (10/12/2024 10:37 PM EDT) Pathologist [facility] Anti Xa Level Low Molecular Weight Heparin 1.20 <2.00 IU/mL 10/12/2024 11:52 PM EDT [facility] Blood Venous blood specimen / Unknown Venipuncture / Unknown 10/12/2024 10:37 PM EDT 10/12/2024 10:43 PM EDT Narrative [facility] - 10/12/2024 11:52 PM EDT Therapeutic Range: LMWH enoxaparin 1mg/kg/dose, 12hrs - peak (3-5 hours after dose): 0.5 - 1.0 IU/mL LMWH enoxaparin 1.5mg/kg/dose, 24hrs - peak (3-5 hours after dose): 1.0 - 2.0 IU/mL LMWH enoxaparin prophylaxis: Not established us Shekhar Ledezma MD LAB BLOOD ORDERABLES Final Result [facility] [address] [place] [address] * (ABNORMAL) POCT glucose meter (10/12/2024 9:21 PM EDT) [facility] POCT Glucose 189(H) 74 - 99 mg/dL [...] Comment 10/12/2024 9:22 PM EDT [facility]ALTH[facility] Behavioral Technician ID Carlos Baez 10/12/2024 9:22 PM EDT HEALTH[facility]ARE LAB Device ID [id number] 10/12/2024 9:22 PM EDT [facility] Specimen Type POC Capillary 10/12/2024 9:22 PM EDT [facility] Blood Capillary blood specimen / Unknown 10/12/2024 9:21 PM EDT 10/12/2024 9:22 PM EDT us Shekhar Ledezma MD LAB POINT OF CARE T EST DOCKED DEVICE UNSOLICITED RESULTS Final Result Performing Organization Address City/[facility]/ZIP Co de Phone Number [facility] [address] [place] [address] * (ABNORMAL) POCT glucose meter (10/12/2024 8:49 PM EDT) [facility] POCT Glucose 56(L) 74 - 99 mg/dL [...] Comment 10/12/2024 8:50 PM EDT [facility]ALTH[facility] Behavioral Technician ID Carlos Baez 10/12/2024 8:50 PM EDT [facility]ALTH[facility] LAB Device ID [id number] 10/12/2024 8:50 PM EDT [facility] Specimen Type POC Capillary 10/12/2024 8:50 PM EDT [facility] Blood Capillary blood specimen / Unknown 10/12/2024 8:49 PM EDT 10/12/2024 8:50 PM EDT Shekhar Ledezma MD LAB POINT OF CARE T EST DOCKED DEVICE UNSOLICITED RESULTS Final Result Performing Organization Address City/[facility] Co de Phone Number [facility] [address] [place] [address] * ECG Adult (10/12/2024 6:17 PM EDT) [facility] EKG DIAGNOSIS CLASS Abnormal MUSE ECG Ventricular Rate 151 BPM MUSE ECG Atrial Rate 375 BPM MUSE ECG QRSD Interval 90 ms MUSE ECG QT Interval 298 ms MUSE ECG QTC Interval 472 ms MUSE ECG P [place] 112 degrees MUSE ECG R [place] -10 degrees MUSE ECG T Wave [place] 72 degrees MUSE ECG Diagnosis Atrial fibrillation [...] for all analytes 10/12/2024 7:53 PM EDT [facility] Swab Nasopharyngeal structure / Unknown Non-blood Collection / Unknown 10/12/2024 4:54 PM EDT 10/12/2024 5:28 PM EDT Narrative [facility] - 10/12/2024 7:53 PM EDT This [...] Respiratory PCR Panel is performed using the PlastiPure ePlex instrument. This test is FDA approved for use with Nasopharyngeal swabs only. This test is used for clinical purposes. It should not be regarded as investigational or for research. The [facility] Clinical Microbiology Laboratory is certified under the Clinical Laboratory Improvement Amendments of 1988 (CLIA-88) as qualified to perform high complexity clinical laboratory testing. us Callie RAMOS LAB MICROBIOLOGY - GENERA L ORDERABLES Final Result [facility] [address] [place] [address] * (ABNORMAL) Osmolality (10/12/2024 4:51 PM EDT) Osmolality, Serum 279(L) 280 - 301 mOsm/Kg 10/13/2024 12:14 AM EDT [facility] Blood Venous blood specimen / Unknown Venipuncture / Unknown 10/12/2024 4:51 PM EDT 10/12/2024 5:09 PM EDT us Berto Stanford DO LAB BLOOD ORDERABLES Final Result [facility] [address] [place] [address] * Morphology (10/12/2024 4:51 PM EDT) Pathologist [facility] RBC Morphology Slide Reviewed LAB HEMATOLOGY METHOD 10/12/2024 7:25 PM EDT [facility] Teardrop Cells Present LAB HEMATOLOGY METHOD 10/12/2024 7:25 PM EDT [facility] Platelet Estimate Platelet smear estimate consistent with automated count LAB HEMATOLOGY METHOD 10/12/2024 7:25 PM EDT [facility] Blood Venous blood specimen / Unknown Venipuncture / Unknown 10/12/2024 4:51 PM EDT 10/12/2024 5:09 PM EDT us Callie Samuel PA LAB BLOOD ORDERABLES Gracia l Result [facility] [address] [place] [address] * (ABNORMAL) Manual Differential (10/12/2024 4:51 PM EDT) Pathologist [facility] Blasts % 0 % LAB HEMATOLOGY METHOD 10/12/2024 7:25 PM EDT [facility] Promyelocytes % 0 % LAB HEMATOLOGY METHOD 10/12/2024 7:25 PM EDT [facility] Myelocytes % 0 % LAB HEMATOLOGY METHOD 10/12/2024 7:25 PM EDT [facility] Metamyelocytes % 0 % LAB HEMATOLOGY METHOD 10/12/2024 7:25 PM EDT [facility] Neutrophils % 3 % LAB HEMATOLOGY METHOD 10/12/2024 7:25 PM EDT [facility] Lymphocytes % 90 % LAB HEMATOLOGY METHOD 10/12/2024 7:25 PM EDT [facility] Reactive Lymphocytes % 2 % LAB HEMATOLOGY METHOD 10/12/2024 7:25 PM EDT [facility] Monocytes % 1 % LAB HEMATOLOGY METHOD 10/12/2024 7:25 PM EDT [facility] Eosinophils % 2 % LAB HEMATOLOGY METHOD 10/12/2024 7:25 PM EDT [facility] Basophils % 2 % LAB HEMATOLOGY METHOD 10/12/2024 7:25 PM EDT [facility] Blasts Absolute 0.00 10*3/UL LAB HEMATOLOGY METHOD 10/12/2024 7:25 PM EDT [facility] Promyelocytes Absolute 0.00 10*3/uL LAB HEMATOLOGY METHOD 10/12/2024 7:25 PM EDT [facility] Myelocytes Absolute 0.00 10*3/uL LAB HEMATOLOGY METHOD 10/12/2024 7:25 PM EDT [facility] Metamyelocytes Absolute 0.00 10*3/uL LAB HEMATOLOGY METHOD 10/12/2024 7:25 PM EDT [facility] Neutrophils Absolute 0.03(LL) 1.60 - 6.10 10*3/uL LAB HEMATOLOGY METHOD 10/12/2024 7:25 PM EDT [facility] Lymphocytes Absolute 0.76(L) 1.20 - 3.90 10*3/uL LAB HEMATOLOGY METHOD 10/12/2024 7:25 PM EDT [facility] Reactive Lymphocytes Absolute 0.02 10*3/uL LAB HEMATOLOGY METHOD 10/12/2024 7:25 PM EDT [facility] Monocytes Absolute 0.01(L) 0.30 - 0.90 10*3/uL LAB HEMATOLOGY METHOD 10/12/2024 7:25 PM EDT [facility] Eosinophils Absolute 0.02 0.00 - 0.50 10*3/uL LAB HEMATOLOGY METHOD 10/12/2024 7:25 PM EDT [facility] Basophils Absolute 0.02 0.00 - 0.10 10*3/uL LAB HEMATOLOGY METHOD 10/12/2024 7:25 PM EDT [facility] Blood Venous blood specimen / Unknown Venipuncture / Unknown 10/12/2024 4:51 PM EDT 10/12/2024 5:09 PM EDT [employer] LAB BLOOD ORDERABLES Gracia l Result Performing Organization Address City/[facility]/ZIP Co de Phone Number [facility] [address] [place] [address] * Lactic acid, venous (10/12/2024 4:51 PM EDT) Lactate, Venous, Whole Blood 1.2 0.5 - 2.2 mmol/L LAB HEMATOLOGY METHOD 10/12/2024 5:22 PM EDT [facility] Blood Venous blood specimen / Unknown Venipuncture / Unknown 10/12/2024 4:51 PM EDT 10/12/2024 5:17 PM EDT [facility] LAB BLOOD ORDERABLES Gracia l Result Performing Organization Address [facility] Co de Phone Number [facility] [address] [place] [address] * Blood Culture (Aerobic/Anaerobet Set) (10/12/2024 4:51 PM EDT) Culture No growth at day 5 10/17/2024 6:01 PM EDT [facility] Blood Structure of antecubital vein / Unknown Venipuncture / Unknown 10/12/2024 4:51 PM EDT 10/12/2024 5:14 PM EDT Narrative [facility] - 10/17/2024 6:01 PM EDT Low blood volume submitted, results may be compromised [facility] [employer] LAB MICROBIOLOGY - GENERA L ORDERABLES Final Result Performing Organization Address City/[facility]/ZIP Co de Phone Number [facility] [address] [place] [address] * Blood Culture (Aerobic/Anaerobet Set) (10/12/2024 4:51 PM EDT) Culture No growth at day 5 10/17/2024 6:01 PM EDT [facility] Blood Structure of left hand / Unknown Venipuncture / Unknown 10/12/2024 4:51 PM EDT 10/12/2024 5:14 PM EDT Narrative [facility] - 10/17/2024 6:01 PM EDT Low blood volume submitted, results may be compromised us Callie A [employer] LAB MICROBIOLOGY - GENERA L ORDERABLES Final Result Performing Organization Address [facility] Co de Phone Number [facility] [address] [place] [address] * (ABNORMAL) Procalcitonin (10/12/2024 4:51 PM EDT) [facility] Signature Procalcitonin, Plasma 0.69(H) <0.09 ng/mL 10/12/2024 5:39 PM EDT [facility] Blood Venous blood specimen / Unknown Venipuncture / Unknown 10/12/2024 4:51 PM EDT 10/12/2024 5:09 PM EDT Narrative [facility] - 10/12/2024 5:39 PM EDT Procalcitonin [...] predict 28 day mortality risk. Please consult [email or web address] for more information. Test performed at [facility]. us Callie A [employer] LAB BLOOD ORDERABLES Gracia l Result Performing Organization Address City/[facility]/ZIP Co de Phone Number [facility] [address] [place] [address] * (ABNORMAL) C-Reactive protein (10/12/2024 4:51 PM EDT) CRP, Plasma 90.1(H) <=8.0 mg/L 10/12/2024 5:38 PM EDT [facility] Blood Venous blood specimen / Unknown Venipuncture / Unknown 10/12/2024 4:51 PM EDT 10/12/2024 5:09 PM EDT Narrative [facility] - 10/12/2024 5:38 PM EDT This CRP test is appropriate for assessment of infection, systemic inflammation and/or tissue injury. To assess cardiovascular disease risk order high sensitivity CRP (CRPH). [facility] BLOOD ORDERABLES Gracia l Result Performing Organization Address City/[facility]/ZIP Co de Phone Number [facility] [address] [place] [address] * Phosphorus (10/12/2024 4:51 PM EDT) [facility] Phosphorus, Plasma 2.8 2.5 - 4.5 mg/dL 10/12/2024 5:38 PM EDT [facility] Blood Venous blood specimen / Unknown Venipuncture / Unknown 10/12/2024 4:51 PM EDT 10/12/2024 5:09 PM EDT [facility] BLOOD ORDERABLES Gracia l Result Performing Organization Address City/[facility]/ZIP Co de Phone Number [facility] [address] [place] [address] * (ABNORMAL) Magnesium (10/12/2024 4:51 PM EDT) Pathologist [facility] Magnesium, Plasma 1.2(L) 1.9 - 2.4 mg/dL 10/12/2024 5:38 PM EDT [facility] Blood Venous blood specimen / Unknown Venipuncture / Unknown 10/12/2024 4:51 PM EDT 10/12/2024 5:09 PM EDT us Callie Samuel PA LAB BLOOD ORDERABLES Gracia l Result [facility] [address] [place] [address] * (ABNORMAL) CMP (10/12/2024 4:51 PM EDT) Glucose, Plasma 110(H) 74 - 99 mg/dL 10/12/2024 5:38 PM EDT [facility] BUN, Plasma 27(H) 8 - 23 mg/dL 10/12/2024 5:38 PM EDT [facility] Creatinine, Plasma 0.99 0.60 - 1.10 mg/dL 10/12/2024 5:38 PM EDT [facility] BUN/Creatinine Ratio 27 10/12/2024 5:38 PM EDT [facility] Sodium, Plasma 131(L) 136 - 145 mmol/L 10/12/2024 5:38 PM EDT [facility] Potassium, Plasma 3.9 3.6 - 4.9 mmol/L 10/12/2024 5:38 PM EDT [facility] Chloride, Plasma 93(L) 97 - 107 mmol/L 10/12/2024 5:38 PM EDT [facility] CO2, Plasma 25 22 - 29 mmol/L 10/12/2024 5:38 PM EDT [facility] Anion Gap 13 6 - 16 mmol/L 10/12/2024 5:38 PM EDT [facility] Total Calcium, Plasma 9.1 8.9 - 10.2 mg/dL 10/12/2024 5:38 PM EDT [facility] Total Protein 6.2(L) 6.3 - 7.9 g/dL 10/12/2024 5:38 PM EDT [facility] Albumin, Plasma 3.4(L) 3.5 - 5.2 g/dL 10/12/2024 5:38 PM EDT [facility] AST, Plasma 17 10 - 35 U/L 10/12/2024 5:38 PM EDT [facility] ALT, Plasma 30 10 - 35 U/L 10/12/2024 5:38 PM EDT [facility] Alkaline Phosphatase, Plasma 74 46 - 142 U/L 10/12/2024 5:38 PM EDT [facility] Total Bilirubin, Plasma 0.9 0.2 - 1.1 mg/dL 10/12/2024 5:38 PM EDT [facility] eGFRcr 64.2 mL/min/1.7 3m*2 10/12/2024 5:38 PM EDT [facility] Comment:Reported eGFRcr in m L/min/1.73m2 is based the CKD-EPI 2020 equation that does not use a race coefficient. Blood Venous blood specimen / Unknown Venipuncture / Unknown 10/12/2024 4:51 PM EDT 10/12/2024 5:09 PM EDT us Callie RAMOS LAB BLOOD ORDERABLES Gracia albarado Result [facility] [address] [place] [address] * (ABNORMAL) CBC w/diff (10/12/2024 4:51 PM EDT) WBC Count 0.84(LL) 3.70 - 10.30 10*3/uL LAB HEMATOLOGY METHOD 10/12/2024 7:25 PM EDT [facility] RBC Count 3.77(L) 3.90 - 5.20 10*6/uL LAB HEMATOLOGY METHOD 10/12/2024 7:25 PM EDT [facility] HGB 11.4 11.2 - 15.7 g/dL LAB HEMATOLOGY METHOD 10/12/2024 7:25 PM EDT [facility] HCT 34.5 34.0 - 45.0 % LAB HEMATOLOGY METHOD 10/12/2024 7:25 PM EDT [facility] Platelet Count 67(L) 155 - 369 10*3/uL LAB HEMATOLOGY METHOD 10/12/2024 7:25 PM EDT [facility] MCV 92 79 - 98 fL LAB HEMATOLOGY METHOD 10/12/2024 7:25 PM EDT [facility] MCH 30.2 26.0 - 32.0 pg LAB HEMATOLOGY METHOD 10/12/2024 7:25 PM EDT [facility] MCHC 33.0 30.7 - 35.5 g/dL LAB HEMATOLOGY METHOD 10/12/2024 7:25 PM EDT [facility] RDW 15.0(H) 11.5 - 14.5 % LAB HEMATOLOGY METHOD 10/12/2024 7:25 PM EDT [facility] MPV 9.0 8.8 - 12.5 fL LAB HEMATOLOGY METHOD 10/12/2024 7:25 PM EDT [facility] nRBC 0.0 <=0.0 per 100 WBCs LAB HEMATOLOGY METHOD 10/12/2024 7:25 PM EDT [facility] Differential Type Manual LAB HEMATOLOGY METHOD 10/12/2024 7:25 PM EDT [facility] Blood Venous blood specimen / Unknown Venipuncture / Unknown 10/12/2024 4:51 PM EDT 10/12/2024 5:09 PM EDT Narrative [facility] - 10/12/2024 7:25 PM EDT Therapeutic [...] RAMOS LAB BLOOD ORDERABLES Gracia albarado Result [facility] [address] [place] [address] * EKG now - STAT (adult) (10/12/2024 3:39 PM EDT) EKG DIAGNOSIS CLASS Abnormal MUSE ECG Ventricular Rate 114 BPM MUSE ECG Atrial Rate 114 BPM MUSE ECG HI Interval 124 ms MUSE ECG QRSD Interval 84 ms MUSE ECG QT Interval 294 ms MUSE ECG QTC Interval 405 ms MUSE ECG P [place] 73 degrees MUSE ECG R [place] -30 degrees MUSE ECG T Wave [place] 75 degrees MUSE ECG Diagnosis Sinus tachycardia MUSE ECG Diagnosis Possible Right atrial enlargement MUSE ECG Diagnosis Left axis deviation MUSE ECG Diagnosis Incomplete right bundle branch block MUSE ECG Diagnosis Poor R-wave progression MUSE ECG Diagnosis Abnormal ECG MUSE ECG Diagnosis MUSE ECG Diagnosis Confirmed by Jeff Jackson ([id number]) on 10/12/2024 3:46:22 PM MUSE ECG 10/12/2024 [...] 8:53 PM EDT 10 mg nystatin (Mycostatin) 198706 UNIT/ML suspension 500,000 Units 500,000 Units (5 [...] Thu10/18/24 at 1448, Routine, line care Tiotropium [place] Monohydrate (Spiriva Respimat) 2.5 MCG/ACT inhaler 2 [...] Provider: Jeni Clark) lidocaine-EPINEPHrine (Xylocaine W/EPI) 1 %-1:000233 injection 20 mL 20 mL, Infiltration, Once, [...] Cary RN) 0837 (Given - Provider: Quan Chavez)2018 (Given - Provider: Tim Oneal) 0855 (Given [...] (Given - Provider: Tim Oneal) nystatin (Mycostatin) 253895 UNIT/ML suspension 500,000 Units 500,000 Units (5 [...] 0857 (Given - Provider: Jeni Clark) Tiotropium [place] Monohydrate (Spiriva Respimat) 2.5 MCG/ACT inhaler 2 [...] care Linked Groups Order Group 1: Tiotropium [place] Monohydrate (Spiriva Respimat) 2.5 MCG/ACT inhaler 2 [...] documented as of this encounter Care Teams Bullet Lubricant Mixer Relationship Specialty Start Date End Date Laurie Gutierrez MD [address] [place] [address] PCP - General 12/09/23 Joshua Martínez MD [address] [place], [place] [id number] [place] [address] Consulting Physician Radiation Oncology 09/19/24 documented as of this encounter
--- OUTSIDE RECORDS SUMMARY | 2024-10-20 00:10 | XMS_ITS | Encounter Summary ---
Author Organization Healthcare Address [address] [place] [address] Care Team Providers Care Upscale Security Officer Name Role Phone Laurie Gutierrez MD Primary Care Provider [phone] Joshua Martínez MD Unavailable Jasmina Smith LPN Unavailable Unavailable Encounter Details Date Type Department Care Team (Latest Contact Info) Description 10/20/2024 12:10 AM EDT - 10/20/2024 9:21 AM EDT Hospital Encounter [facility] Rad[facility] [address] [id number] [place] [address] Discharge Disposition: Still a Patient 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 [...] any time in the past 12 m [facility], were you homeless or living in a senior care (including now)? No 10/14/2024 CAGE ASSESSMENT Answer [...] drink first t laurie in the morning (EYE-STOREKEEPER ENGINEERING) to steady your nerves or to get rid of a hangover? 0 11/19/2023 CAGE Questionnaire Score 0 024 Utilities Answer Date Recorded In the past 12 months has e [employer], [employer], oil, or water [employer] threatened to shut off services in your [...] misc 09/19/2024 5 Blood Glucose Monitoring Suppl (Music Connect Verio Flex System) w/Device kit 09/19/2024 5 carvedilol (Coreg) 12.5 MG tablet Take 1 tablet by mouth 2 times a day with meals. 5 ciclopirox (Penlac) 8 % solution Apply over affected nail fold daily. 5 Continuous Glucose Warp Hand (Dexcom G7 Warp Hand) device USE TO MEASURE BLOOD SUGAR DIRECTED 09/29/2024 5 Continuous Glucose Sensor (Dexcom G6 Sensor) [facility] USE DIRECTED TO MEASURE BLOOD SUGAR. REPLACE [...] Can be adjusted per the MD at [facility] 10 mL 12 10/18/2024 5 Lantus SoloStar 100 UNIT/ML injection pen Inject under the skin 2 times a day. 10/18/2024 5 lidocaine (Xylocaine) 2 % solution Take 5 mL by mouth as needed for mild pain. 10/18/2024 5 nystatin (Mycostatin) 501581 UNIT/ML suspension Swish and swallow 5 mL [...] [address] [facility], 2nd [place] [address] 11/29/2024 11:00 AM EDT Office Visit Pav [facility] Head[facility] Neck [facility] Respiratory [address] [facility], 2nd [place] [address] Satnam Colvin MD [address] [facility] Nuria Degroot [facility] [address] [place] [address] 11/29/2024 12:30 PM EDT Appointment [facility] 1 [address] [place] [address] 11/30/2024 1:30 PM EDT Appointment [facility] 1 [address] [place] [address] 12/01/2024 2:00 PM EDT Appointment [facility] 1 [address] [place] [address] 12/06/2024 11:40 AM EDT Appointment [facility] Radiation [id number] [place] [address] Haven Blum, SPORTS TEACHER [address] [facility] [address] [place] [address] 01/19/2025 9:30 AM EDT Appointment [facility] S Radiology [address], 1st [place] [address] 01/19/2025 10:45 AM EDT Office Visit [facility] [address], 1st [place] [address] Abhilash Bangura MD [address] [place] [address] 03/08/2025 1:00 PM EDT Office Visit [facility] [place] [facility] [address] [place] [address] Teresita Oconnell MD [address] [place] [address] documented as of this encounter Visit Diagnoses [...] documented as of this encounter Care Teams Upscale Security Officer Relationship Specialty Start Date End Date Laurie Gutierrez MD [address] [place] [address] PCP - General 12/09/23 Joshua Martínez MD [address] [place] [address] Consulting Physician Radiation Oncology 09/19/24 Jasmina Smith LPN VALUE-BASED [place] [address] TCM Nurse 10/19/24 11/01/24 documented as of this encounter
--- OUTSIDE RECORDS SUMMARY | 2024-10-20 00:10 | XMS_ITS | Encounter Summary ---
Author Organization Healthcare Address [address] [place] [address] Care Team Providers Care Certified Dental Assistant Name Role Phone Laurie Gutierrez MD Primary Care Provider Joshua Martínez MD Unavailable Jasmina Smith LPN Unavailable Unavailable Encounter Details Date Type Department Care Team (Latest Contact Info) Description 10/20/2024 12:10 AM EDT - 10/20/2024 9:21 AM EDT Hospital Encounter [facility] Radiation [id number] [place] [address] Discharge Disposition: Still a Patient 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 [...] drink first t laurie in the morning (EYE-WORK ORDER CLERK) to steady your nerves or to get rid of a hangover? 0 11/19/2023 CAGE Questionnaire Score 0 024 Utilities Answer Date Recorded In the past 12 months has e [employer], [employer], oil, or water [employer] threatened to shut off services in your [...] MINI PEN NEEDLES 31G X 5 MM [facility] 09/19/2024 5 Blood Glucose Monitoring Suppl (Sun LifeLight Verio Flex System) w/Device kit 09/19/2024 5 carvedilol (Coreg) 12.5 MG tablet Take 1 tablet by mouth 2 times a day with meals. 5 ciclopirox (Penlac) 8 % solution Apply over affected nail fold daily. 5 Continuous Glucose Swim Coach (Dexcom G7 Swim Coach) device USE TO MEASURE BLOOD SUGAR DIRECTED 09/29/2024 5 Continuous Glucose Sensor (Dexcom G6 Sensor) [facility] USE DIRECTED TO MEASURE BLOOD SUGAR. REPLACE [...] Can be adjusted per the MD at [facility] 10 mL 12 10/18/2024 5 Lantus SoloStar 100 UNIT/ML injection pen Inject under the skin 2 times a day. 10/18/2024 lidocaine (Xylocaine) 2 % solution Take 5 mL by mouth as needed for mild pain. 10/18/2024 5 nystatin (Mycostatin) 332815 UNIT/ML suspension Swish and swallow 5 mL [...] Pav [facility] Respiratory [address] [facility], 2nd [place] [address] 11/29/2024 11:00 AM EDT Office Visit [facility] Respiratory [address] [facility], 2nd [place] [address] Satnam Colvin MD [address] [facility] Nuria Degroot [facility] [address] [place] [address] 11/29/2024 12:30 PM EDT Appointment [facility] 1 [address] [place] [address] 11/30/2024 1:30 PM EDT Appointment [facility] 1 [address] [place] [address] 12/01/2024 2:00 PM EDT Appointment [facility] 1 [address] [place] [address] 12/06/2024 11:40 AM EDT Appointment [facility] Radiation [address] [id number] [place] [address] Haven Blum, FUEL OPERATOR [address] [facility] [address] [place] [address] 01/19/2025 9:30 AM EDT Appointment [facility] S Radiology [address], [address]st [place] [address] 01/19/2025 10:45 AM EDT Office Visit [facility] [address], [address] [place] [address] Abhilash Bangura MD [address] [place] [address] 03/08/2025 1:00 PM EDT Office Visit [facility] [place] [facility] [address] [place] [address] Teresita Oconnell MD [address] [place] [address] documented as of this encounter Visit Diagnoses [...] documented as of this encounter Care Teams Certified Dental Assistant Relationship Specialty Start Date End Date Laurie Gutierrez MD [address] [place] [address] PCP - General 12/09/23 Joshua Martínez MD [address] [place] [address] Consulting Physician Radiation Oncology 09/19/24 Jasmina Smith LPN VALUE-BASED [place] [address] TCM Nurse 10/19/24 11/01/24 documented as of this encounter
--- OUTSIDE RECORDS SUMMARY | 2024-10-20 09:22 | XMS_ITS | Encounter Summary ---
Author Organization Healthcare Address [address] [place] [address] Care Team Providers Care Applications Engineer Name Role Phone Laurie Gutierrez MD Primary Care Provider [phone] Joshua Martínez MD Unavailable Jasmina Smith LPN Unavailable Unavailable Encounter Details Date Type Department Care Team (Latest Contact Info) Description 10/20/2024 9:22 AM EDT - 10/20/2024 11:59 PM EDT Hospital Encounter [facility] Radiation [id number] [place] [address] Discharge Disposition: Still a Patient 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 [...] in a care home (including now)? No 10/14/2024 CAGE ASSESSMENT Answer [...] drink first t laurie in the morning (EYE-VOCATIONAL EDUCATION TEACHER) to steady your nerves or to get rid of a hangover? 0 11/19/2023 CAGE Questionnaire Score 0 024 Utilities Answer Date Recorded In the past 12 months has e [employer], [employer], oil, or water [employer] threatened to shut off services in your [...] misc 09/19/2024 5 Blood Glucose Monitoring Suppl (Cure[employer] Technology Verio Flex System) w/Device kit 09/19/2024 5 carvedilol (Coreg) 12.5 MG tablet Take 1 tablet by mouth 2 times a day with meals. 5 ciclopirox (Penlac) 8 % solution Apply over affected nail fold daily. 5 Continuous Glucose Business Development Analyst (Dexcom G7 Business Development Analyst) device USE TO MEASURE BLOOD SUGAR DIRECTED 09/29/2024 5 Continuous Glucose Sensor (Dexcom G6 Sensor) [facility] USE DIRECTED TO [...] Can be adjusted per the MD at [facility] 10 mL 12 10/18/2024 5 Lantus SoloStar 100 UNIT/ML injection pen Inject under the skin 2 times a day. 10/18/2024 5 lidocaine (Xylocaine) 2 % solution Take 5 mL by mouth as needed for mild pain. 10/18/2024 5 nystatin (Mycostatin) 036116 UNIT/ML suspension Swish and swallow 5 mL [...] [facility] Res[facility] [address] [facility], 2nd [place] [address] 11/29/2024 11:00 AM EDT Office Visit [facility] [address] [facility], [address]nd [place] [address] Satnam Colvin MD [address] [facility] Nuria Degroot [facility] [address] [place] [address] 11/29/2024 12:30 PM EDT Appointment [facility] 1 [address] [place] [address] 11/30/2024 1:30 PM EDT Appointment [facility] 1 [address] [place] [address] 12/01/2024 2:00 PM EDT Appointment [facility] 1 [address] [place] [address] 12/06/2024 11:40 AM EDT Appointment [facility] Radiation [address] [id number] [place] [address] Haven Blum, FINANCE CONTROLLER [address] [facility] [address] [place] [address] 01/19/2025 9:30 AM EDT Appointment [facility] S Radiology [address], [address] [place] [address] 01/19/2025 10:45 AM EDT Office Visit [place] [facility] [address], [address] [place] [address] Abhilash Bangura MD [address] [place] [address] 03/08/2025 1:00 PM EDT Office Visit [facility] [place] [facility] [address] [place] [address] Teresita Oconnell MD [address] [place] [address] documented as of this encounter Visit Diagnoses [...] documented as of this encounter Care Teams Applications Engineer Relationship Specialty Start Date End Date Laurie Gutierrez MD [address] [place] [address] PCP - General 12/09/23 Joshua Martínez MD [address] [place] [address] Consulting Physician Radiation Oncology 09/19/24 Jasmina Smith LPN VALUE-[place]ED [place] [address] TCM Nurse 10/19/24 11/01/24 documented as of this encounter
--- OUTSIDE RECORDS SUMMARY | 2024-10-20 09:22 | XMS_ITS | Encounter Summary ---
Author Organization Healthcare Address [address] [place] [address] Care Team Providers Care Motor And Generator Brush Cutter Name Role Phone Laurie Gutierrez MD Primary Care Provider [phone] Joshua Martínez MD Unavailable Jasmina Smith LPN Unavailable Unavailable Encounter Details Date Type Department Care Team (Latest Contact Info) Description 10/20/2024 9:22 AM EDT - 10/20/2024 11:59 PM EDT Hospital Encounter [facility] Radiation [id number] [place] [address] Discharge Disposition: Still a Patient 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 [...] any time in the past 12 m [facility], were you homeless or living [...] drink first t laurie in the morning (EYE-JUVENILE COURT JUDGE) to steady your nerves or to get rid of a hangover? 0 11/19/2023 CAGE Questionnaire Score 0 024 Utilities Answer Date Recorded In the past 12 months has e [employer], [employer], oil, or water [employer] threatened to shut off services in your [...] MINI PEN NEEDLES 31G X 5 MM [facility] 09/19/2024 5 Blood Glucose Monitoring Suppl ([employer] Verio Flex System) w/Device kit 09/19/2024 5 carvedilol (Coreg) 12.5 MG tablet Take 1 tablet by mouth 2 times a day with meals. 5 ciclopirox (Penlac) 8 % solution Apply over affected nail fold daily. 5 Continuous Glucose Broach Setter (Dexcom G7 Broach Setter) device USE TO MEASURE BLOOD SUGAR DIRECTED 09/29/2024 5 Continuous Glucose Sensor (Dexcom G6 Sensor) [facility] USE DIRECTED TO MEASURE BLOOD SUGAR. REPLACE [...] Can be adjusted per the MD at [facility] 10 mL 12 10/18/2024 5 Lantus SoloStar 100 UNIT/ML injection pen Inject under the skin 2 times a day. 10/18/2024 lidocaine (Xylocaine) 2 % solution Take 5 mL by mouth as needed for mild pain. 10/18/2024 5 nystatin (Mycostatin) 020644 UNIT/ML suspension Swish and swallow 5 mL [...] [facility] [address] [facility]nd [place] [address] 11/29/2024 11:00 AM EDT Office Visit [facility] [address] [facility], [address]nd [place] [address] Satnam Colvin MD [address] [facility] Nuria Degroot [facility] [address] [place] [address] 11/29/2024 12:30 PM EDT Appointment [facility] [address] [place] [address] 11/30/2024 1:30 PM EDT Appointment [facility] [address] [place] [address] 12/01/2024 2:00 PM EDT Appointment [facility] [address] [place] [address] 12/06/2024 11:40 AM EDT Appointment [facility] Rad[facility] [id number] [place] [address] Haven Blum, BULKING MACHINE OPERATOR [address] [facility] [address] [place] [address] 01/19/2025 9:30 AM EDT Appointment [facility] S Radiology [address], [address]st [place] [address] 01/19/2025 10:45 AM EDT Office Visit [place] [facility] [address], [address] [place] [address] Abhilash Bangura MD [address] [place] [address] 03/08/2025 1:00 PM EDT Office Visit [facility] Gallagher Wenceslao [address] [place] [phone] Teresita Oconnell MD [address] [place] [address] documented as of this encounter Visit Diagnoses [...] documented as of this encounter Care Teams Motor And Generator Brush Cutter Relationship Specialty Start Date End Date Laurie Gutierrez MD [address] [place] [address] PCP - General 12/09/23 Joshua Martínez MD [address] [place] [address] Consulting Physician Radiation Oncology 09/19/24 Jasmina Smith LPN VALUE-[place] [address] TCM Nurse 10/19/24 11/01/24 documented as of this encounter
--- OUTSIDE RECORDS SUMMARY | 2024-10-24 04:00 | XMS_ITS ---
Author Organization [facility] [place] [address] Care Team Providers Care Pipe Fitter Gas Pipe Name Role Phone MUNA DEY Unavailable [phone] Muna Dey MD Unavailable Unavailable Yamilet Coleman Unavailable [phone] REASON FOR VISIT [facility] HFU DC 6.3.25 AND 1 month f/u/NEEDS A1C/DM EYE EXAM/MCUC/CMP Encounters Encounter Location Date Provider Diagnosis [facility] [place] [address] [place] [address] 10/24/2024 Yamilet Coleman Plan Of Treatment Next Appt Details Provider Name:Yamilet heath, 02/27/2025 10:30:00 AM, [address], [place], [address], Progress Notes * Teresa URBINADOB: [birth year] (63 yo F)Acc No.[id number]:10/24/2024 Progress Note Patient: Isis Teresa REY Provider: Carolyn Coleman :1960 A ge:63 Y S ex:Female Date:10/24/2024 Address:[address] [place] [address] [id number] Subjective: * Chief Complaints: * 1 . [facility] HFU DC 6.3.25 AND 1 month f/u/NEEDS A1C/DM EYE EXAM/MCUC/CMP. * Medical History: Objective: * Vitals: Assessment: Plan: * Treatment: * * Electronic signature of Giorgio Coleman PAC on 11/24/2024 at 08:57 PM EDT Sign off status: Pending * Provider: Carolyn Coleman Date: 0 10/24/2024 Generated for Chato Rose on: 0 11/24/2024 08:57 PM EDT
--- OUTSIDE RECORDS SUMMARY | 2024-10-24 04:00 | XMS_ITS ---
Author Organization [facility] [place] [address] Care Team Providers Care Catapult And Arresting Gear Officer Name Role Phone MUNA DEY Unavailable [phone] Muna Dey MD Unavailable Unavailable Yamilet Coleman Unavailable [phone] REASON FOR VISIT UK HFU DC 6.3.25 AND 1 month f/u/NEEDS A1C/DM EYE EXAM/MCUC/CMP Encounters Encounter Location Date Provider Diagnosis [facility] [place] [address] [place] [address] 10/24/2024 Yamilet Coleman Plan Of Treatment Next Appt Details Provider Name:Yamilet heaht, 02/27/2025 10:30:00 AM, [address], [place], [address], Progress Notes * Teresa URBINADOB: [birth year] (63 yo F)Acc No.[id number]:10/24/2024 Progress Note Patient: Isis Teresa REY Provider: Carolyn Coleman :1960 A ge:63 Y S ex:Female Date:10/24/2024 Address:[address] [place] [address] [id number] Subjective: * Chief Complaints: * 1 . [facility] HFU DC 6.3.25 AND 1 month f/u/NEEDS A1C/DM EYE EXAM/MCUC/CMP. * Medical History: Objective: * Vitals: Assessment: Plan: * Treatment: * * Electronic signature of Giorgio Coleman PAC on 11/25/2024 at 03:48 PM EDT Sign off status: Pending * Provider: Carolyn Coleman Date: 10/24/2024 Generated for Chato Rose on: 0 11/25/2024 03:48 PM EDT
--- OUTSIDE RECORDS SUMMARY | 2024-10-24 08:59 | XMS_ITS | Encounter Summary ---
Author Organization [facility] Address [address] [place] [address] Care Team Providers Care Supply Chain Engineer Name Role Phone Laurie Gutierrez MD Primary Care Provider [phone] Joshua Martínez MD Unavailable Jasmina Smith CAN COVERER Unavailable Unavailable Reason for Visit * Auth/Cert (Routine) Specialty Diagnoses / Procedures Referred By Mackenzie carreon Referred To Contact Diagnoses Pneumonia of right upper lobe due to infectious organism recurrent pneumonia Robert Amin MD [address] [place] [address] Phone: tel: fax: [facility] A Emergency Department [address] [place] [address] Phone: tel: Referral ID Status Reason Start Date Expiration Date Visits Re quested Visits Authorized [id number] 1 1 Encounter Details Date Type Department Care Team (Latest Contact Info) Description 10/24/2024 8:59 AM EDT - 10/24/2024 11:46 AM EDT Hospital Encounter [facility] Radiation 800 [facility] [address] [place] [address] Discharge Disposition: Still a Patient 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 [...] time in the past 12 m [facility], were you homeless or living [...] drink first t laurie in the morning (EYE-FIRE ALARM INSPECTOR) to steady your nerves or to get rid of a hangover? 0 11/19/2023 CAGE Questionnaire Score 0 024 Utilities Answer Date Recorded In the past 12 months has th e [employer], gas, oil, or water company threatened to [...] MINI PEN NEEDLES 31G X 5 MM [facility] 09/19/2024 5 Blood Glucose Monitoring Suppl ([employer] Verio Flex System) w/Device kit 09/19/2024 5 carvedilol (Coreg) 12.5 MG tablet Take 1 tablet by mouth 2 times a day with meals. 5 ciclopirox (Penlac) 8 % solution Apply over affected nail fold daily. 5 Continuous Glucose Pneumatic Tube Fitter (Algentiscom G7 Pneumatic Tube Fitter) device USE TO MEASURE BLOOD SUGAR DIRECTED 09/29/2024 5 Continuous Glucose Sensor (Dexcom G6 Sensor) [facility] [place] DIRECTED TO MEASURE BLOOD SUGAR. REPLACE [...] be adjusted per the MD at [facility] 10 mL 12 10/18/2024 5 Lantus SoloStar 100 UNIT/ML injection pen Inject under the skin 2 times a day. 10/18/2024 5 lidocaine (Xylocaine) 2 % solution Take 5 mL by mouth as needed for mild pain. 10/18/2024 nystatin (Mycostatin) 668740 UNIT/ML suspension Swish and swallow 5 mL [...] Respiratory 800 [facility], 2nd [place] [address] 11/29/2024 11:00 AM EDT Office Visit [facility] Head, Neck & Respiratory 800 [facility], 2nd [place] [address] Satnam Colvin MD 800 [facility] [address] [place] [address] 11/29/2024 12:30 PM EDT Appointment [facility] 1 [address] [place] [address] 11/30/2024 1:30 PM EDT Appointment [facility] 1 [address] [place] [address] 12/01/2024 2:00 PM EDT Appointment [facility] 1 [address] [place] [address] 12/06/2024 11:40 AM EDT Appointment [facility] Radiation 800 [facility]. [address] [place] [address] Haven Blum, TENDER LABOR 800 [facility] [address] [place] [address] 01/19/2025 9:30 AM EDT Appointment P[facility] S Radiology [address], 1st [place] [address] 01/19/2025 10:45 AM EDT Office Visit [place] [facility] [address], 1st [place] [address] Abhilash Bangura MD [address] [place] [address] 03/08/2025 1:00 PM EDT Office Visit [facility] [place] Wenceslao [address] [place] [address] Teresita Oconnell MD [address] [place] [address] documented as of this encounter [...] documented as of this encounter Care Teams Supply Chain Engineer Relationship Specialty Start Date End Date Laurie Gutierrez MD [address] [place], [place] [id number] PCP - General 12/09/23 Joshua Martínez MD 800 [facility] [address] [place] [address] Consulting Physician Radiation Oncology 09/19/24 Jasmina Smith LPN VALUE-BASED [place] [address] TCM Nurse 10/19/24 11/01/24 documented as of this encounter
--- OUTSIDE RECORDS SUMMARY | 2024-10-24 08:59 | XMS_ITS | Encounter Summary ---
Author Organization [facility] Address [address] [place] [address] Care Team Providers Care Fighter Pilot Name Role Phone Laurie Gutierrez MD Primary Care Provider [phone] Joshua Martínez MD Unavailable Jasmina Smith PRIMARY HEALTH ORGANISATION MANAGER Unavailable Unavailable Reason for Visit * Auth/Cert (Routine) Specialty Diagnoses / Procedures Referred By Mackenzie carreon Referred To Contact Diagnoses Pneumonia of right upper lobe due to infectious organism recurrent pneumonia Robert Amin MD [address] [place] [address] Phone: tel: fax: [facility] A Emergency Department [address] [place] [address] Phone: tel: Referral ID Status Reason Start Date Expiration Date Visits Re quested Visits Authorized [id number] 1 1 Encounter Details Date Type Department Care Team (Latest Contact Info) Description 10/24/2024 8:59 AM EDT - 10/24/2024 11:46 AM EDT Hospital Encounter [facility] CC Radiation 800 [facility] [id number] [place] [address] Discharge Disposition: Still a Patient [...] time in the past 12 m [facility], were you homeless or living in a prison (including now)? No 10/14/2024 CAGE ASSESSMENT Answer [...] drink first t laurie in the morning (EYE-BOLT SORTER) to steady your nerves or to get rid of a hangover? 0 11/19/2023 CAGE Questionnaire Score 0 024 Utilities Answer Date Recorded In the past 12 months has th e [employer], gas, oil, or water company threatened to [...] MINI PEN NEEDLES 31G X 5 MM [facility] 09/19/2024 5 Blood Glucose Monitoring Suppl ([employer] Verio Flex System) w/Device kit 09/19/2024 5 carvedilol (Coreg) 12.5 MG tablet Take 1 tablet by mouth 2 times a day with meals. 5 ciclopirox (Penlac) 8 % solution Apply over affected nail fold daily. 5 Continuous Glucose Health And Wellness Instructor ([employer] G7 Health And Wellness Instructor) device USE TO MEASURE BLOOD SUGAR DIRECTED 09/29/2024 5 Continuous Glucose Sensor (Dexcom G6 Sensor) [facility] USE DIRECTED TO MEASURE BLOOD SUGAR. REPLACE SENSOR EVERY 10 DAYS 09/01/2024 dexamethasone (Decadron) 2 MG tablet Take 1 [...] Can be adjusted per the MD at [facility] 10 mL 12 10/18/2024 5 Lantus SoloStar 100 UNIT/ML injection pen Inject under the skin 2 times a day. 10/18/2024 5 lidocaine (Xylocaine) 2 % solution Take 5 mL by mouth as needed for mild pain. 10/18/2024 nystatin (Mycostatin) 425323 UNIT/ML suspension Swish and swallow 5 mL [...] Pav CC Head, Neck & Respiratory [address] [facility], 2nd [place] [address] 11/29/2024 11:00 AM EDT Office Visit [facility] Head, Neck & Respiratory [address] [facility], 2nd [place] [address] Satnam Colvin MD [address] [facility] [address] [place] [address] 11/29/2024 12:30 PM EDT Appointment [facility] 1 [address] [place] [address] 11/30/2024 1:30 PM EDT Appointment [facility] 1 [address] [place] [address] 12/01/2024 2:00 PM EDT Appointment [facility] 1 [address] [place] [address] 12/06/2024 11:40 AM EDT Appointment [facility] Radiation [address] [facility] [id number] [place] [address] Haven Blum, HOSPITAL ADMISSIONS OFFICER [address] [facility] [address] [place] [address] 01/19/2025 9:30 AM EDT Appointment P[facility] S Radiology [address], 1st [place] [address] 01/19/2025 10:45 AM EDT Office Visit [place] [facility] [address], [address]st [place] [address] Abhilash Bangura MD [address] [place] [address] 03/08/2025 1:00 PM EDT Office Visit [facility] [place] Wenceslao [address] [place] [address] Teresita Oconnell MD [address] [place] [address] documented as of this encounter [...] documented as of this encounter Care Teams Fighter Pilot Relationship Specialty Start Date End Date Laurie Gutierrez MD [address] [place], [place] [phone] PCP - General 12/09/23 Joshua Martínez MD 800 [facility] [address] [place] [address] Consulting Physician Radiation Oncology 09/19/24 Jasmina Smith LPN VALUE-[place] [address] TCM Nurse 10/19/24 11/01/24 documented as of this encounter
--- OUTSIDE RECORDS SUMMARY | 2024-10-24 11:47 | XMS_ITS | Encounter Summary ---
Author Organization [facility] Address [address] [place] [address] Care Team Providers Care Slurry Tank Tender Name Role Phone Laurie Gutierrez MD Primary Care Provider [phone] Joshua Martínez MD Unavailable Jasmina Smith ENGINE PILOT Unavailable Unavailable Reason for Visit * Auth/Cert (Routine) Specialty Diagnoses / Procedures Referred By Mackenzie t Referred To Contact Diagnoses Pneumonia of right upper lobe due to infectious organism recurrent pneumonia Robert Amin MD [address] [place] [address] Phone: tel: fax: [facility] A Emergency Department [address] [place] [address] Phone: tel: Referral ID Status Reason Start Date Expiration Date Visits Re quested Visits Authorized [id number] 1 1 Encounter Details Date Type Department Care Team (Latest Contact Info) Description 10/24/2024 11:47 AM EDT Hospital Encounter [facility] CC Radiation 800 [facility] [id number] [place] [address] Joshua Martínez MD [address] [facility] [address] [place] [address] Discharge Disposition: Still a Patient [...] any time in the past 12 m [facility], were you homeless or living in a chcf (including now)? No 10/14/2024 CAGE ASSESSMENT Answer [...] drink first t laurie in the morning (EYE-RESIDENCY DIRECTOR) to steady your nerves or to get rid of a hangover? 0 11/19/2023 CAGE Questionnaire Score 0 024 Utilities Answer Date Recorded In the past 12 months has [employer], gas, oil, or water [employer] threatened to shut off services in your [...] MINI PEN NEEDLES 31G X 5 MM [facility] 09/19/2024 5 Blood Glucose Monitoring Suppl ([employer]ing [employer] Verio Flex System) w/Device kit 09/19/2024 5 carvedilol (Coreg) 12.5 MG tablet Take 1 tablet by mouth 2 times a day with meals. 5 ciclopirox (Penlac) 8 % solution Apply over affected nail fold daily. 5 Continuous Glucose Lawn Mower Sharpener (Zylun [employer]ing[employer] G7 Lawn Mower Sharpener) device USE TO MEASURE BLOOD SUGAR DIRECTED [...] Can be adjusted per the MD at [facility] 10 mL 12 10/18/2024 5 Lantus SoloStar 100 UNIT/ML injection pen Inject under the skin 2 times a day. 10/18/2024 5 lidocaine (Xylocaine) 2 % solution Take 5 mL by mouth as needed for mild pain. 10/18/2024 5 nystatin (Mycostatin) 255241 UNIT/ML suspension Swish and swallow 5 mL [...] Head, Neck & Respiratory 800 [facility], 2nd [place] [address] 11/29/2024 11:00 AM EDT Office Visit Pav CC Head, Neck & Respiratory [address] [facility], [address]nd [place] [address] Satnam Colvin MD 800 [facility] [address] [place] [address] 11/29/2024 12:30 PM EDT Appointment [facility] 1 [address] [place] [address] 11/30/2024 1:30 PM EDT Appointment [facility] 1 [address] [place] [address] 12/01/2024 2:00 PM EDT Appointment [facility] 1 [address] [place] [address] 12/06/2024 11:40 AM EDT Appointment [facility] CC Radiation [address] [facility]. [id number] [place] [address] Haven Blum, BOX PRINTING MACHINE OPERATOR [address] [facility] [address] [place] [address] 01/19/2025 9:30 AM EDT Appointment [facility] S Radiology [address], [address]st [place] [address] 01/19/2025 10:45 AM EDT Office Visit [place] [facility] [address], [address] [place] [address] Abhilash Bangura MD [address] [place] [address] 03/08/2025 1:00 PM EDT Office Visit [facility] [place] Wenceslao [address] [place] [address] Teresita Oconnell MD [address] [place] [address] documented as of this encounter [...] documented as of this encounter Care Teams Slurry Tank Tender Relationship Specialty Start Date End Date Laurie Gutierrez MD [address] [place] [address] PCP - General 12/09/23 Joshua Martínez MD [address] [place] [address] Consulting Physician Radiation Oncology 09/19/24 Jasmina Smith LPN VALUE-[place] [address] TCM Nurse 10/19/24 11/01/24 documented as of this encounter
--- OUTSIDE RECORDS SUMMARY | 2024-10-24 11:47 | XMS_ITS | Encounter Summary ---
Author Organization [facility] Address [address] [place] [address] Care Team Providers Care Sleep Technologist Name Role Phone Laurie Gutierrez MD Primary Care Provider Joshua Martínez MD Unavailable Jasmina Smith ROLLER STAINER Unavailable Unavailable Reason for Visit * Auth/Cert (Routine) Specialty Diagnoses / Procedures Referred By Mackenzie t Referred To Contact Diagnoses Pneumonia of right upper lobe due to infectious organism recurrent pneumonia Robert Amin MD [address] [place] [address] Phone: tel: fax: [facility] A Emergency Department [address] [place] [address] Phone: tel: Referral ID Status Reason Start Date Expiration Date Visits Re quested Visits Authorized [id number] 1 1 Encounter Details Date Type Department Care Team (Latest Contact Info) Description 10/24/2024 11:47 AM EDT Hospital Encounter [facility] CC Radiation 800 [facility] [id number] [place] [address] Joshua Martínez MD 800 [facility] [address] [place] [address] Discharge Disposition: Still a Patient [...] place to sleep or slept in a half-way (including now)? No 11/20/2023 PHQ-9 Answer Date [...] were you homeless or living in a half-way (including now)? No 10/14/2024 CAGE ASSESSMENT Answer [...] drink first t laurie in the morning (EYE-PIPING MANAGER) to steady your nerves or to get rid of a hangover? 0 11/19/2023 CAGE Questionnaire Score 0 024 Utilities Answer Date Recorded In the past 12 months has [employer], gas, oil, or water [employer] threatened to shut off services in your [...] misc 09/19/2024 5 Blood Glucose Monitoring Suppl (Legit[employer] Verio Flex System) w/Device kit 09/19/2024 5 carvedilol (Coreg) 12.5 MG tablet Take 1 tablet by mouth 2 times a day with meals. 5 ciclopirox (Penlac) 8 % solution Apply over affected nail fold daily. 5 Continuous Glucose Alley Tender (Aristotl G7 Alley Tender) device USE TO MEASURE BLOOD SUGAR DIRECTED 09/29/2024 5 Continuous Glucose Sensor (Dexcom G6 Sensor) [facility] [place] DIRECTED TO MEASURE BLOOD SUGAR. REPLACE SENSOR EVERY 10 DAYS 09/01/2024 dexamethasone (Decadron) 2 MG tablet Take 1 tablet by mouth every 12 hours. 10 tablet 10/18/2024 FREESTYLE LITE test strip USE TO [...] Can be adjusted per the MD at [facility] 10 mL 12 10/18/2024 5 Lantus SoloStar 100 UNIT/ML injection pen Inject under the skin 2 times a day. 10/18/2024 5 lidocaine (Xylocaine) 2 % solution Take 5 mL by mouth as needed for mild pain. 10/18/2024 nystatin (Mycostatin) 877333 UNIT/ML suspension Swish and swallow 5 mL [...] Respiratory 800 [facility], [address]nd [place] [address] 11/29/2024 11:00 AM EDT Office Visit Pav CC Head, Neck & Respiratory 800 [facility], 2nd [place] [address] Satnam Colvin MD 800 [facility] [address] [place] [address] 11/29/2024 12:30 PM EDT Appointment [facility] 1 [address] [place] [address] 11/30/2024 1:30 PM EDT Appointment [facility] 1 [address] [place] [address] 12/01/2024 2:00 PM EDT Appointment [facility] 1 [address] [place] [address] 12/06/2024 11:40 AM EDT Appointment [facility] Radiation 800 [facility]. [id number] [place] [address] Haven Blum, DIGITAL MEDIA MANAGER 800 [facility] [address] [place] [address] 01/19/2025 9:30 AM EDT Appointment P[facility] S Radiology [address], [address]st [place] [address] 01/19/2025 10:45 AM EDT Office Visit [place] [facility] [address], [address]st [place] [address] Abhilash Bangura MD [address] [place] [address] 03/08/2025 1:00 PM EDT Office Visit [facility] Reedy Wenceslao [address] [place] [address] Teresita Oconnell MD [address] [place] [address] documented as of this encounter [...] documented as of this encounter Care Teams Sleep Technologist Relationship Specialty Start Date End Date Laurie Gutierrez MD [address] [place] [address] PCP - General 12/09/23 Joshua Martínez MD [address] [place] [address] Consulting Physician Radiation Oncology 09/19/24 Jasmina Smith LPN VALUE-BASED [place] [address] TCM Nurse 10/19/24 11/01/24 documented as of this encounter
--- OUTSIDE RECORDS SUMMARY | 2024-10-24 11:48 | XMS_ITS | Encounter Summary ---
Author Organization [facility] Address [address] [place] [address] Care Team Providers Care Punch Box Tender Name Role Phone Laurie Gutierrez MD Primary Care Provider [phone] Joshua Martínez MD Unavailable Jasmina Smith GLUE SPREADER Unavailable Unavailable Reason for Visit * Auth/Cert (Routine) Specialty Diagnoses / Procedures Referred By Mackenzie carreon Referred To Contact Diagnoses Pneumonia of right upper lobe due to infectious organism recurrent pneumonia Robert Amin MD [address] [place] [address] Phone: tel: fax: [facility] A Emergency Department [address] [place] [address] Phone: tel: Referral ID Status Reason Start Date Expiration Date Visits Re quested Visits Authorized [id number] 1 1 Encounter Details Date Type Department Care Team (Latest Contact Info) Description 10/24/2024 11:48 AM EDT - 10/24/2024 11:59 PM EDT Hospital Encounter [facility] Radiation 800 [facility] [id number] [place] [address] Discharge Disposition: Still a Patient [...] place to sleep or slept in a long term (including now)? No 11/20/2023 PHQ-9 Answer Date [...] any time in the past 12 m [facility], were you homeless or living in a long term (including now)? No 10/14/2024 CAGE ASSESSMENT Answer [...] drink first t laurie in the morning (EYE-PUBLICATION SPECIALIST) to steady your nerves or to get rid of a hangover? 0 11/19/2023 CAGE Questionnaire Score 0 024 Utilities Answer Date Recorded In the past 12 months has th e [employer], gas, oil, or water company threatened to [...] MINI PEN NEEDLES 31G X 5 MM [facility] 09/19/2024 5 Blood Glucose Monitoring Suppl ([employer] Verio Flex System) w/Device kit 09/19/2024 5 carvedilol (Coreg) 12.5 MG tablet Take 1 tablet by mouth 2 times a day with meals. 5 ciclopirox (Penlac) 8 % solution Apply over affected nail fold daily. 5 Continuous Glucose Automobile Body Worker (Girl Meets Dresscom G7 Automobile Body Worker) device USE TO MEASURE BLOOD SUGAR DIRECTED 09/29/2024 5 Continuous Glucose Sensor (Dexcom G6 Sensor) [facility] USE DIRECTED TO MEASURE BLOOD [...] per the MD at [facility] 10 mL 12 10/18/2024 5 Lantus SoloStar 100 UNIT/ML injection pen Inject under the skin 2 times a day. 10/18/2024 5 lidocaine (Xylocaine) 2 % solution Take 5 mL by mouth as needed for mild pain. 10/18/2024 nystatin (Mycostatin) [id number] UNIT/ML suspension Swish and swallow 5 mL [...] Pav CC Head, Neck & Respiratory 800 [facility], [address]nd [place] [address] 11/29/2024 11:00 AM EDT Office Visit [facility] Head, Neck & Respiratory 800 [facility], [address]nd [place] [address] Satnam Colvin MD 800 [facility] [address] [place] [address] 11/29/2024 12:30 PM EDT Appointment [facility] 1 [address] [place] [address] 11/30/2024 1:30 PM EDT Appointment [facility] 1 [address] [place] [address] 12/01/2024 2:00 PM EDT Appointment [facility] 1 [address] [place] [address] 12/06/2024 11:40 AM EDT Appointment [facility] CC Radiation 800 [facility]. [id number] [place] [address] Haven Blum, SHIP'S SURVEYOR [address] [facility] [address] [place] [address] 01/19/2025 9:30 AM EDT Appointment [facility] S Radiology [address], [address] [place] [address] 01/19/2025 10:45 AM EDT Office Visit [place] [facility] [address], [address]st [place] [address] Abhilash Bangura MD [address] [place] [address] 03/08/2025 1:00 PM EDT Office Visit [facility] Waucoma Wenceslao [address] [place] [address] Teresita Oconnell MD [address] [place] [address] documented as of this encounter [...] documented as of this encounter Care Teams Punch Box Tender Relationship Specialty Start Date End Date Laurie Gutierrez MD [address] [place], [place] [phone] PCP - General 12/09/23 Joshua Martínez MD 800 [facility] [address] [place] [address] Consulting Physician Radiation Oncology 09/19/24 Jasmina Smith LPN VALUE-[place] [address] TCM Nurse 10/19/24 11/01/24 documented as of this encounter
--- OUTSIDE RECORDS SUMMARY | 2024-10-24 11:48 | XMS_ITS | Encounter Summary ---
Author Organization [facility] Address [address] [place] [address] Care Team Providers Care Vat Cleaner Name Role Phone Laurie Gutierrez MD Primary Care Provider [phone] Joshua Martínez MD Unavailable Jasmina Smith ASSOCIATE ACCOUNT EXECUTIVE Unavailable Unavailable Reason for Visit * Auth/Cert (Routine) Specialty Diagnoses / Procedures Referred By Mackenzie carreon Referred To Contact Diagnoses Pneumonia of right upper lobe due to infectious organism recurrent pneumonia Robert Amin MD [address] [place] [address] Phone: tel: fax: [facility] A Emergency Department [address] [place] [address] Phone: tel: Referral ID Status Reason Start Date Expiration Date Visits Re quested Visits Authorized [id number] 1 1 Encounter Details Date Type Department Care Team (Latest Contact Info) Description 10/24/2024 11:48 AM EDT - 10/24/2024 11:59 PM EDT Hospital Encounter [facility] CC Radiation 800 [facility] [id number] [place] [address] Discharge Disposition: Still a Patient [...] to sleep or slept in a senior living (including now)? No 11/20/2023 PHQ-9 Answer Date [...] you homeless or living in a senior living (including now)? No 10/14/2024 CAGE ASSESSMENT Answer [...] drink first t laurie in the morning (EYE-DEPUTY ATTORNEY GENERAL) to steady your nerves or to get rid of a hangover? 0 11/19/2023 CAGE Questionnaire Score 0 024 Utilities Answer Date Recorded In the past 12 months has th e [employer], gas, oil, or water company threatened to [...] MINI PEN NEEDLES 31G X 5 MM [facility] [place] 09/19/2024 5 Blood Glucose Monitoring Suppl ([employer] Verio Flex System) w/Device kit 09/19/2024 5 carvedilol (Coreg) 12.5 MG tablet Take 1 tablet by mouth 2 times a day with meals. 5 ciclopirox (Penlac) 8 % solution Apply over affected nail fold daily. 5 Continuous Glucose Radiology Transcriptionist (Auto I.D.com G7 Radiology Transcriptionist) device USE TO MEASURE BLOOD SUGAR DIRECTED 09/29/2024 5 Continuous Glucose Sensor (Dexcom G6 Sensor) [facility] [place] DIRECTED TO MEASURE [...] adjusted per the MD at [facility] 10 mL 12 10/18/2024 5 Lantus SoloStar 100 UNIT/ML injection pen Inject under the skin 2 times a day. 10/18/2024 5 lidocaine (Xylocaine) 2 % solution Take 5 mL by mouth as needed for mild pain. 10/18/2024 nystatin (Mycostatin) 713055 UNIT/ML suspension Swish and swallow 5 mL [...] Pav CC Head, Neck & Respiratory 800 [facility], 2nd [place] [address] 11/29/2024 11:00 AM EDT Office Visit Pav CC Head, Neck & Respiratory [address] [facility], [address]nd [place] [address] Satnam Colvin MD 800 [facility] [address] [place] [address] 11/29/2024 12:30 PM EDT Appointment [facility] 1 [address] [place] [address] 11/30/2024 1:30 PM EDT Appointment [facility] 1 [address] [place] [address] 12/01/2024 2:00 PM EDT Appointment [facility] 1 [address] [place] [address] 12/06/2024 11:40 AM EDT Appointment [facility] CC Radiation 800 [facility]. [id number] [place] [address] Haven Blum, DIRECTOR OF RECREATION THERAPY [address] [facility] [address] [place] [address] 01/19/2025 9:30 AM EDT Appointment P[facility] S Radiology [address], [address] [place] [address] 01/19/2025 10:45 AM EDT Office Visit [place] [facility] [address], [address] [place] [address] Abhilash Bangura MD [address] [place] [address] 03/08/2025 1:00 PM EDT Office Visit [facility] [place] Wenceslao [address] [place] [address] Teresita Oconnell MD [address] [place] [address] documented as of this encounter [...] documented as of this encounter Care Teams Vat Cleaner Relationship Specialty Start Date End Date Laurie Gutierrez MD [address] [place], [place] [phone] PCP - General 12/09/23 Joshua Martínez MD 800 [facility] [address] [place] [address] Consulting Physician Radiation Oncology 09/19/24 Jasmina Smith LPN VALUE-BASED [place] [address] TCM Nurse 10/19/24 11/01/24 documented as of this encounter
--- OUTSIDE RECORDS SUMMARY | 2024-10-25 08:40 | XMS_ITS | Encounter Summary ---
Author Organization Healthcare Address [address] [place] [address] Care Team Providers Care Facility Worker Name Role Phone Laurie Gutierrez MD Primary Care Provider [phone] Joshua Martínez MD Unavailable Jasmina Smith LPN Unavailable Unavailable Reason for Visit * Reason Comments Atrial Fibrillation * Auth/Cert (Routine) Specialty Diagnoses / Procedures Referred By Contac t Referred To Contact Diagnoses Pneumonia of right upper lobe due to infectious organism recurrent pneumonia Robert Amin MD [address] [place] [address] Phone: tel: fax: [facility] Emergency Department [address] [place] [address] Phone: tel: Referral ID Status Reason Start Date Expiration Date Visits Re quested Visits Authorized [id number] 1 1 Encounter Details Date Type Department Care Team (Late st Contact Info) Description 10/25/2024 8:40 AM EDT Office Visit [facility] [place] [facility] [address] [facility] [place] [address] Vonnie Barksdale PA [address] [place] [address] Atrial flutter with rapid ventricular [...] in the past 12 m [facility], were you homeless or living in a penitentiary (including now)? No 10/14/2024 Humiliation, Afraid, Rape, [...] in the past 12 m [facility], were you homeless or living in a penitentiary (including now)? No 10/26/2024 CAGE ASSESSMENT Answer [...] drink first t laurie in the morning (E[employer]) to steady your nerves or to get rid of a hangover? 0 11/19/2023 CAGE Questionnaire Score 0 024 Utilities Answer Date Recorded In the past 12 months has th e [employer], gas, oil, or water [employer] threatened to shut off services in your [...] Date of Visit 10/25/24 Patient Teresa Rivera [address] [facility] [place] [id number] PCP Laurie Gutierrez MD Chief Complaint No [...] 500 mg BID. PT was admitted at [facility] for Sepsis with febrile severe neutropenia due [...] (L) 10/18/2024 0346 HCT 29.9 (L) 10/18/2024 034 Lab Results Component Value Date/Time BUN 16 [...] craniotomy on 09/05/24 PT was admitted at [facility] for Sepsis with febrile severe neutropenia due [...] to illness. Sister accompanies her. Spoke with [facility] and ER. PT will be sent to [...] MINI PEN NEEDLES 31G X 5 MM [facility], , Disp: , Rfl: benzonatate (Tessalon) 100 MG capsule, Take 1 capsule by mouth 3 times a day as needed for cough. Do not crush or chew., Disp: 20 capsule, Rfl: 0 Blood Glucose Monitoring Suppl (OneTouch Verio Flex System) w/Device kit, , Disp: , Rfl: Bmhsyoe-Fsbemztcjyq-Tvuuyahfvh (Breztri Aerosphere) 160-9-4.8 MCG/ACT aerosol, Inhale 2 [...] Rfl: Continuous Glucose Sensor (Dexcom G6 Sensor) [facility], USE DIRECTED TO MEASURE BLOOD SUGAR. REPLACE [...] the MD at [facility], Disp: 10 mL, Rfl: 12 magnesium [...] mouth nightly., Disp: , Rfl: nystatin (Mycostatin) 175387 UNIT/ML suspension, Swish and swallow 5 mL [...] [facility] [address] [facility] [place] [address] 11/29/2024 11:00 AM EDT Office Visit [facility] [address] [facility] [place] [address] Satnam Colvin MD [address] [place] [address] 11/29/2024 12:30 PM EDT Appointment [facility] [address] [place] [address] 11/30/2024 1:30 PM EDT Appointment [facility] [address] [place] [address] 12/01/2024 2:00 PM EDT Appointment [facility] [address] [place] [address] 12/06/2024 11:40 AM EDT Appointment [facility] Radiation [address] [place] [address] Haven Blum, EXECUTIVE LEGAL SECRETARY [address] [facility] [address] [place] [address] 01/19/2025 9:30 AM EDT Appointment [facility] [address] [place] [address] 01/19/2025 10:45 AM EDT Office Visit [facility] [address] [place] [address] Abhilash Bangura MD [address] [place] [address] 03/08/2025 1:00 PM EDT Office Visit [facility] [address] [place] [address] Teresita Oconnell MD [address] [place] [address] documented as of this encounter [...] ECG Atrial Rate 96 BPM MUSE ECG UT Interval 132 ms MUSE ECG QRSD Interval 86 ms MUSE ECG QT Interval 346 ms MUSE ECG QTC Interval 437 ms MUSE ECG P Risco 73 degrees MUSE ECG R R[place] 32 degrees MUSE ECG T Wave [place] 57 degrees MUSE ECG Diagnosis Normal sinus rhythm MUSE ECG Diagnosis Normal ECG MUSE ECG Diagnosis MUSE ECG Diagnosis Confirmed by Herman Lima ([id number]) on 10/25/2024 10:14:24 AM MUSE ECG 10/25/2024 9:13 AM EDT 10/25/2024 10:14 AM EDT Vonnie RAMOS ECG ORDERABLES Final Result MUSE [...] documented as of this encounter Care Teams Facility Worker Relationship Specialty Start Date End Date Laurie Gutierrez MD [address] [place] [address] PCP - General 12/09/23 Joshua Martínez MD [id number] [place] [address] Consulting Physician Radiation Oncology 09/19/24 Jasmina Smith LPN VALUE-BASED [place] [address] TCM Nurse 10/19/24 11/01/24 documented as of this encounter
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
--- OUTSIDE RECORDS SUMMARY | 2024-10-25 10:03 | XMS_ITS | Encounter Summary ---
Author Organization [facility] Address [address] [place] [address] Care Team Providers Care Associate Professor Of Medicine Name Role Phone Laurie Gutierrez MD Primary Care Provider [phone] Joshua Martínez MD Unavailable Jasmina Smith LPN Unavailable Unavailable Reason for Referral * Consultation (Routine) - Authorized Specialty Diagnoses / Procedures Referred By Mackenzie t Referred To Contact Family Medicine Diagnoses Pneumonia of right upper lobe due to infectious organism Robert Amin MD [address] [place] [address] Phone: tel: fax: Referral ID Status Reason Start Date Expiration Date V isits Requested Visits Authorized [id number] Authorized 10/31/2024 05/02/2026 1 1 * Home Health (Routine) - Authorized Specialty Diagnoses / Procedures Referred By Mackenzie carreon Referred To Contact Home Health Services Diagnoses Pneumonia of right upper lobe due to infectious organism Robert Amin MD [address] [place] [address] Phone: tel: fax: Referral ID Status Reason Start Date Expiration Date Visits Requested Visits Authorized [id number] Authorized Specialty Services Required 10/27/2024 04/28/2026 999 999 Reason for Visit * Reason Comments Shortness of Breath Weakness - Generalized * Auth/Cert (Routine) Specialty Diagnoses / Procedures Referred By Contac t Referred To Contact Diagnoses Pneumonia of right upper lobe due to infectious organism recurrent pneumonia Robert Amin MD [address] [place] [address] Phone: tel: fax: P[facility] A Emergency Department [address] [place] [address] Phone: tel: Referral ID Status Reason Start Date Expiration Date Visits Re quested Visits Authorized [id number] 1 1 Encounter Details Date Type Department Care Team (Late st Contact Info) Description 10/25/2024 10:03 AM EDT - 10/31/2024 5:33 PM EDT Hospital Encounter [facility] H Inpatient [address] [place] [address] Doris Contreras MD [address] [place] [address] Robert Amin MD [address] [place] [address] Pneumonia of right upper lobe [...] place to sleep or slept in a mcc (including now)? No 11/20/2023 PHQ-9 Answer Date [...] were you homeless or living in a mcc (including now)? No 10/14/2024 Humiliation, Afraid, Rape, [...] any time in the [facility], were you homeless or living in a mcc (including now)? No 10/26/2024 CAGE ASSESSMENT Answer [...] drink first t laurie in the morning (EYE-BINDERY MACHINE TENDER) to steady your nerves or to get rid of a hangover? 0 10/27/2024 CAGE Questionnaire Score 0 025 Utilities Answer Date Recorded In the past 12 months has [employer], gas, oil, or water [employer] threatened to shut off services in your [...] 10/31/2024 7:00 AM EDT Ruben germain, Lisa Trimble RN * Question Answer Date of Assessment Author 1. Wish to be (Past 1 Month) No 10/31/2024 7:00 AM EDT Lisa Ranikn RN 2. Non-Specific Active Suici radha Thoughts [...] 3 times a day as needed. magic butt balm (Cholestyramine) CMPD (Magic Butt) [...] se Take 1 tablet by mouth Daily. cholestyramine light (Prevalite) 4 GM/DOSE powder Take 1 packet by mouth 2 times a day with meals. 10/31/2024 5 dexamethasone (Decadron) 2 MG tablet Take 1 tablet by mouth every 12 hours. 10 tablet 10/18/2024 5 empagliflozin (Jardiance) 25 MG Take 1 tablet by mouth daily. 5 gabapentin (Neurontin) 600 MG tablet Take 1 tablet by mouth 4 times a day. 5 insulin glargine (Lantus) 100 UNIT/ML injection vial Inject 25 Units under the skin nightly. 10 mL 3 10/31/2024 5 insulin lispro (Admelog, HumaLOG) 100 UNIT/ML injection pen Inject 15 Units under the skin 3 times a day with meals. 5 metoprolol succinate XL (Toprol-XL) 50 MG 24 hr tablet Take 1 tablet by mouth daily. Do not crush or chew. 90 tablet 11/01/2024 5 NovoLOG FLEXPEN 100 UNIT/ML injection pen Inject under the skin 3 (three) times daily with meals per correction scale as follows: blood sugar 150-199 use 2 units, 200-249 use 4 units, 250-299 use 6 units, 300-349 use 8 units, 350-399 use 10 units, >399 12 units and call provider. 15 mL 3 10/31/2024 5 ondansetron (Zofran) 8 MG tabletIndication s:Extensive [...] PCP name and Address: Laurie Gutierrez MD [address] [facility] [address] Referring provider name and address: Vonnie Barksdale PA [address] [place] [address] Chief Concern, Brief History of Present Illness, [...] Breztri Aerosphere 160-9-4.8 MCG/ACT aerosol Generic drug: Ejosndg-Icfssatyiis-Xzceehnrir Inhale 2 puffs 2 (two) times a [...] meals per correction scale as follows: blood ofmjv324-447 use 2 units, 200-249 use 4 units, [...] Your Medications These medications were sent to [facility] [place], [place] - [email or web address] [facility] [id number] Alum & Mag hydroxide, Zinc Oxide, Cholestyramine [...] RAD ONC 21 PLAT CH RO [facility] 11/02/2024 11:15 AM CH [facility] RAD ONC 21 PLAT CH RO [facility] 11/04/2024 11:15 AM CH [facility] RAD ONC 21 PLAT CH RO [facility] 11/07/2024 12:45 PM CH [facility] RAD ONC 21 PLAT CH RO [facility] 11/08/2024 11:00 AM [facility] 11/08/2024 11:20 AM [facility] 11/08/2024 1:30 PM Zeinab August Sosa DO [facility] 11/08/2024 2:00 PM CH [facility] 1 INFUSION TREATMENT [id number] [facility] 11/09/2024 3:00 PM CH [facility] 2 INFUSION TREATMENT [id number] [facility] 11/10/2024 3:00 PM CH [facility] 1 INFUSION TREATMENT [id number] [facility] 01/19/2025 9:30 AM GS MR 2 MRIGSH [facility] 01/19/2025 10:45 AM Abhilash Bangura MD [facility] 03/08/2025 1:00 PM Teresita Oconnell MD [facility] Heart I Test Results Pending At [...] alert. Discharge Disposition/Condition Disposition: Other (specify) [facility] Condition: Stable (s/sx potential problems absent or [...] Note Teresa Urbina 63 y.o. female CSN: [id number] Admission: 10/25/2024 10:03 AM Primary Problem: Pneumonia of right upper lobe due to infectious organism Primary Security System Analyst: Primary Caregiver: Self Assistance Available at Discharge: Family/Security System Analyst(s) Readiness Assessed to care for patient at [...] Comments: Pt will DC to [facility] this date. Pt was accepted to go to the [facility] until 11/10/24. Pt has transportation upon DC. No further SW concerns identified at this time. SW will monitor pt's progress and will follow up with DC planning and needs as appropriate. NAVEED Kirkland, SCENARIO WRITER Social Work Senior Department of Case Management [facility] * Progress Notes - Genia Grissom - 10/31/2024 1:40 PM EDT Case Management Adult Progress Note Teresa Urbina 63 y.o. female CSN: [id number] Admission: 10/25/2024 10:03 AM Primary Problem: Pneumonia [...] will DC to [facility] on 11/02/24. NAVEED Kirkland, SCENARIO WRITER Social Work Senior Department of Case Management [facility] * Progress Notes - Felipe Sanchez [...] Value Units Date/Time Blood Culture (Aerobic/Anaerobet Set) [[id number]] Collected: 10/26/24 0303 Order Status: Completed Specimen: Blood from Hand, Left Updated: 10/27/24 0502 Culture No growth at day 1 Blood Culture (Aerobic/Anaerobet Set) [[id number]] Collected: 10/25/24 2110 Order Status: Completed Specimen: Blood, Venous Updated: 10/26/24 2202 Culture No growth at day 1 Respiratory Culture and Gram Stain [[id number]] (Abnormal) Collected: 10/26/2437 Order Status: Completed Specimen: Sputum, Expectorated Updated: [...] clusters Streptococcus pneumoniae and Legionella Urinary Antigen [[id number]] (Normal) Collected: 10/26/24536 Order Status: Completed Specimen: Urine, Clean Catch Updated: 10/26/24 0743 Legionella pneumophila serogroup 1 Antigen Result (Urine) Negative Streptococcus pneumoniae Antigen Result (Urine) Negative Methicillin Resistant Staphylococcus aureus (MRSA) by PCR [[id number]] (Normal) Collected: 10/25/24 1832 Order Status: Completed Specimen: Swab from Nares Updated: 10/25/24 2041 Methicillin Resistant Staphylococcus aureus (MRSA) by PCR Not Detected Nasopharyngeal Respiratory Panel [[id number]] (Normal) Collected: 10/25/24 1042 Order Status: Completed Specimen: Swab from Nasopharynx Updated: 10/25/24 1507 Nasopharyngeal Respiratory PCR Interpretation Not Detected for all analytes SARS CoV-2/COVID-19 by PCR - Rapid [[id number]] (Normal) Collected: 10/25/24 1042 Order Status: Completed [...] sputum if available. Plan to go to [facility] to finish radiation treatments. Patient amenable to going home to pack then returning to [facility]. Will increase insulin today due to persistent [...] plan as documented. * Progress Notes - Yung Rider - 10/31/2024 12:15 PM EDT Physical Therapy Treatment Patient Name: Teresa Urbina Today's Date: 10/31/2024 PT Discharge Recommendations: Home with assistance, Home health PT, Home health OT Equipment Recommended: Patient owns appropriate equipment Subjective Patient agreeable to physical therapy. Participants in Care Family/Caregiver Present: No Inside Trucker: Not Applicable Presentation Oxygen Oxygen Therapy: None [...] safety, along with improving upright activity tolerance. CERTIFIED SOLID WASTE FACILITY OPERATOR provided cues to promote maximal independence and safety. Refer to sections below for further details. Transfers Transfer Interventions: Patient performed 3 reps of sit to/from stand from different surface levels. Provided cues for proper hand placement, BLE set-up, forward trunk leans to initiate coming to stand, and safe descent to sit. Transfer Exam: Sit to stand Level of [place]: Stand-by assist Physical/Nonphysical Assist: Verbal Cues, Minimal cues Transfer Exam: Stand to Sit Level of [place]: Stand-by assist Physical/Nonphysical Assist: Verbal Cues, Minimal [...] to perform TID. Access Code: [email or web address] URL: [email or web address] Date: 10/31/2024 Prepared by: Vishnu Exercises - [...] Value Units Date/Time Blood Culture (Aerobic/Anaerobet Set) [[id number]] Collected: 10/26/24 0303 Order Status: Completed Specimen: Blood from Hand, Left Updated: 10/27/24 0502 Culture No growth at day 1 Blood Culture (Aerobic/Anaerobet Set) [[id number]] Collected: 10/25/24 2110 Order Status: Completed Specimen: Blood, Venous Updated: 10/26/24 220 Culture No growth at day 1 Respiratory Culture and Gram Stain [[id number]] (Abnormal) Collected: 10/26/24 0537 Order Status: Completed [...] clusters Streptococcus pneumoniae and Legionella Urinary Antigen [[id number]] (Normal) Collected: 10/26/2437 Order Status: Completed Specimen: Urine, Clean Catch Updated: 10/26/24 0743 Legionella pneumophila serogroup 1 Antigen Result (Urine) Negative Streptococcus pneumoniae Antigen Result (Urine) Negative Methicillin Resistant Staphylococcus aureus (MRSA) by PCR [[id number]] (Normal) Collected: 10/25/24 1832 Order Status: Completed Specimen: Swab from Nares Updated: 10/25/24 2041 Methicillin Resistant Staphylococcus aureus (MRSA) by PCR Not Detected Nasopharyngeal Respiratory Panel [[id number]] (Normal) Collected: 10/25/24 1042 Order Status: Completed Specimen: Swab from Nasopharynx Updated: 10/25/24 1507 Nasopharyngeal Respiratory PCR Interpretation Not Detected for all analytes SARS CoV-2/COVID-19 by PCR - Rapid [[id number]] (Normal) Collected: 10/25/24 1042 Order Status: Completed [...] Note Teresa Urbina 63 y.o. female CSN: [id number] Admission: 10/25/2024 10:03 AM Primary Problem: Pneumonia of right upper lobe due to infectious organism Weekend SW was notified that patient may be able to dc Thursday or Thursday and she would like to stay at the [facility]. JENSEN faxed over [facility] referral form to [phone]. Addendum: JENSEN was notified that referral form for [facility] must be completed on-line and include specific check in and check out dates. JENSEN will send again at in. Lisa Edwards Social Work [phone] * Progress Notes - Darren Moon MD - 10/29/2024 10:54 AM EDT Images from the original note were not included. Hospital Medicine Progress Note Subjective Subjective/Night Patient examined at bedside. Continues to feel well with significant improvement in breathing and weakness. Asked about pneumonia vaccines. Has not had any paperwork regarding the [facility]. Denies any other concerns this morning. Objective [...] Value Units Date/Time Blood Culture (Aerobic/Anaerobet Set) [[id number]] Collected: 10/26/24 0303 Order Status: Completed Specimen: Blood from Hand, Left Updated: 10/27/24 0502 Culture No growth at day 1 Blood Culture (Aerobic/Anaerobet Set) [[id number]] Collected: 10/25/24 2110 Order Status: Completed Specimen: Blood, Venous Updated: 10/26/24 2202 Culture No growth at day 1 Respiratory Culture and Gram Stain [[id number]] (Abnormal) Collected: 10/26/24 0537 Order Status: Completed [...] clusters Streptococcus pneumoniae and Legionella Urinary Antigen [[id number]] (Normal) Collected: 10/26/24 0537 Order Status: Completed Specimen: Urine, Clean Catch Updated: 10/26/24 0743 Legionella pneumophila serogroup 1 Antigen Result (Urine) Negative Streptococcus pneumoniae Antigen Result (Urine) Negative Methicillin Resistant Staphylococcus aureus (MRSA) by PCR [[id number]] (Normal) Collected: 10/25/24 1832 Order Status: Completed Specimen: Swab from Nares Updated: 10/25/24 2041 Methicillin Resistant Staphylococcus aureus (MRSA) by PCR Not Detected Nasopharyngeal Respiratory Panel [[id number]] (Normal) Collected: 10/25/24 1042 Order Status: Completed Specimen: Swab from Nasopharynx Updated: 10/25/24 1507 Nasopharyngeal Respiratory PCR Interpretation Not Detected for all analytes SARS CoV-2/COVID-19 by PCR - Rapid [[id number]] (Normal) Collected: 10/25/24 1042 Order Status: Completed [...] Value Units Date/Time Blood Culture (Aerobic/Anaerobet Set) [[id number]] Collected: 10/26/24 0303 Order Status: Completed Specimen: Blood from Hand, Left Updated: 10/27/24 0502 Culture No growth at day 1 Blood Culture (Aerobic/Anaerobet Set) [[id number]] Collected: 10/25/24 2110 Order Status: Completed Specimen: Blood, Venous Updated: 10/26/24 2202 Culture No growth at day 1 Respiratory Culture and Gram Stain [[id number]] (Abnormal) Collected: 10/26/24 0537 Order Status: Completed [...] clusters Streptococcus pneumoniae and Legionella Urinary Antigen [[id number]] (Normal) Collected: 10/26/2437 Order Status: Completed Specimen: Urine, Clean Catch Updated: 10/26/24 0743 Legionella pneumophila serogroup 1 Antigen Result (Urine) Negative Streptococcus pneumoniae Antigen Result (Urine) Negative Methicillin Resistant Staphylococcus aureus (MRSA) by PCR [[id number]] (Normal) Collected: 10/25/24 1832 Order Status: Completed Specimen: Swab from Nares Updated: 10/25/24 2041 Methicillin Resistant Staphylococcus aureus (MRSA) by PCR Not Detected Nasopharyngeal Respiratory Panel [[id number]] (Normal) Collected: 10/25/24 1042 Order Status: Completed Specimen: Swab from Nasopharynx Updated: 10/25/24 1507 Nasopharyngeal Respiratory PCR Interpretation Not Detected for all analytes SARS CoV-2/COVID-19 by PCR - Rapid [[id number]] (Normal) Collected: 10/25/24 1042 Order Status: Completed [...] Note Teresa Urbina 63 y.o. female CSN: [id number] Admission: 10/25/2024 10:03 AM Primary Problem: Pneumonia [...] planning and needs as appropriate. Genia Grissom, LAUNDRY SUPERVISOR, SCENARIO WRITER Social Work Senior Department of Case Management [facility] * Progress Notes - Chalo Thomason [...] from the original note were not included. [facility] Medicine Progress Note Subjective Subjective/Night Patient examined [...] Value Units Date/Time Blood Culture (Aerobic/Anaerobet Set) [[id number]] Collected: 10/26/24 0303 Order Status: Completed Specimen: Blood from Hand, Left Updated: 10/27/24 0502 Culture No growth at day 1 Blood Culture (Aerobic/Anaerobet Set) [[id number]] Collected: 10/25/24 2110 Order Status: Completed Specimen: Blood, Venous Updated: 10/26/24 2202 Culture No growth at day 1 Respiratory Culture and Gram Stain [[id number]] (Abnormal) Collected: 10/26/24 0537 Order Status: Completed [...] clusters Streptococcus pneumoniae and Legionella Urinary Antigen [[id number]] (Normal) Collected: 10/26/24 0537 Order Status: Completed Specimen: Urine, Clean Catch Updated: 10/26/24 0743 Legionella pneumophila serogroup 1 Antigen Result (Urine) Negative Streptococcus pneumoniae Antigen Result (Urine) Negative Methicillin Resistant Staphylococcus aureus (MRSA) by PCR [[id number]] (Normal) Collected: 10/25/24 1832 Order Status: Completed Specimen: Swab from Nares Updated: 10/25/24 2041 Methicillin Resistant Staphylococcus aureus (MRSA) by PCR Not Detected Nasopharyngeal Respiratory Panel [[id number]] (Normal) Collected: 10/25/24 1042 Order Status: Completed Specimen: Swab from Nasopharynx Updated: 10/25/24 1507 Nasopharyngeal Respiratory PCR Interpretation Not Detected for all analytes SARS CoV-2/COVID-19 by PCR - Rapid [[id number]] (Normal) Collected: 10/25/24 1042 Order Status: Completed [...] Note Teresa Urbina 63 y.o. female CSN: [id number] Admission: 10/25/2024 10:03 AM Primary Problem: Pneumonia of right upper lobe due to infectious organism Grommet Man reviewed chart and spoke with the patient at bedside to complete this Initial Case Management Assessment. PCP: Laurie Gutierrez MD Emergency Contact: Extended Emergency Contact Information Primary Emergency Contact: Zachary Urbina Mobile Relation: Son Preferred language: Yi Inside Trucker needed? No Secondary Emergency Contact: Aurora Urbina Mobile Relation: Daughter Preferred language: Yi Inside Trucker needed? No Insurance: Primary Visit Coverage Payer Plan Sponsor Code Group Number Group Name [employer] [id number] Primary Visit Coverage Subscriber Subscriber ID Subscriber Name Subscriber SSN Subscriber Address [id number] TERESA URBINA [id number] [address] [place] [address] Patient information: Primary Caregiver: Self Support System: Immediate family Daily Living Activities: Functional Status: Minimum assistance Living Arrangements: Alone Type of Residence: Private residence, Single Level (4 stairs to enter the front room, 3 stairs to enter the side door, and 2 stairs to enter the back porch) [address] [place] [address] Smoker in the Home?: N/A Current DME: Equipment Currently Used at Home: walker, rolling, oxygen (2L of O2 at home) Current DME Provider: [facility] Income Information: Income Source: Unemployed (recieves husbands social security) Current Resources Utilized: [place] Housing Circumstances-Z Codes: Housing Circumstances (select all that apply): Low Income (101-300% Federal Poverty Guidlines) - Z596 Anticipated Discharge Date: 72 hours Patient's Discharge Goal: Home Assistance Available at Discharge: Family Discharge Transport: Family Follow Up Transport: Family Home Health / Home Infusion / Outpatient Dialysis Services: Current DME Provider: [facility] Living Will/Advance Directive/Power of Favor Maker /Guardian: Pt states that Zachary is her [...] Cage questionnaire guilty: 0 Cage questionnaire eye telephone operator: 0 Cage Overall score: 0 Housing Stability: [...] Social Connections: Low Risk (05/26/2023) Received from [employer] Family and Community Support Help with Day [...] within 72 hrs. Pt lives alone at [address] [place] [id number]. The home is one level with 4 stairs to enter the front room, 3 stairs to enter the side door, and 2 stairs to enter the back porch. Pt requires minimum assistance performing ADLS at home, states her sister watches her shower so she does not fall. Pt states she uses a RW and 2L ofO2 at home through [employer]. Pt POA is Zachary Urbina, son but no papers on file. Pt states she has assistance from her family upon DC if needed. Pt confirmed her PCP in chart. Pt states her family will provide her with transportation upon DC. Pt was act [facility] for rehab in September. Pt meets FPG 300%. Pt preferred pharmacy is [facility]. No further SW concerns identified at this time. SW will monitor pt's progress and will follow up with DC planning and needs as appropriate. Genia Grissom, LAUNDRY SUPERVISOR, SCENARIO WRITER Social Work Senior Department of Case Management - [facility] * Hospital Course - Felipe Sanchez [...] 10/18/24 after antibiotic course. [facility] for worsening shortness of air, [...] mg, Subcutaneous, Once, 0 of 3 cycles Fdobtnhqaadz-Uvtxnnqfgdpuj-jfke (Tecentriq Hybreza) 1875-31902 MG-UT/15ML injection solution 1,875 mg, 1,875 mg, [...] Family History[3] 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 Patient lives in [place] with Tobacco Use History[4] 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 Substance [...] with formulation ofthe plan as described. Page Cantu DO Internal Medicine, PGY-3 [1] Past Medical History: [...] SURGERY TUBAL LIGATION N/A Tubal Ligation from [facility] TYMPANOSTOMY TUBE PLACEMENT N/A Ear Surgery Eustachian Tube from [facility] [3] Family History Problem Relation Name Age [...] tablet 650 mg, 650 mg, Oral, q8h Joaquin ANGELES Hannah G, DO, 650 mg at 10/26/24 0559 albuterol (Proventil) (2.5 MG/3ML) 0.083% nebulizer solution 2.5 mg, 2.5 mg, Nebulization, q12h, Darren Moon MD, 2.5 mg at 10/26/24 0826 atorvastatin (Lipitor) tablet 40 mg, 40 mg, Oral, Daily, Sasha Nuñez, DO, 40 mg at 10/26/24820 azithromycin (Zithromax) tablet 500 mg, 500 mg, Oral, Daily, Sasha Nuñez, DO, 500 mg at 10/26/24820 benzonatate (Tessalon) capsule 100 mg, 100 mg, Oral, TID PRN, Sasha Nuñez DO calcium carbonate (Tums) chewable tablet 500 mg, 500 mg, Oral, 4x daily PRN, Darren Moon MD calcium-vitamin D 500-200 MG-UNIT per tablet 1 tablet, 1 tablet, Oral, Daily, Sasha Nuñez, , 1 tablet at 10/26/24821 cetirizine (ZyrTEC) tablet 10 mg, 10 mg, Oral, Daily, Sasha Nuñez, DO, 10 mg at 10/26/24820 glucose (Glutose) 40 % oral gel 15-30 grams of glucose, 15-30 grams of glucose, Sublingual, q15 minPRN OR dextrose 50 % solution 12.5-25 g, 12.5-25 g, Intravenous, q15 min PRN OR glucagon (human recombinant) injection 1 mg, 1 mg, Intramuscular, q15 min PRN, Sasha Nuñez DO FLUoxetine (PROzac) capsule 40 mg, 40 mg, Oral, Daily, Sasha Nuñez, DO, 40 mg at 10/26/24820 gabapentin (Neurontin) capsule 600 mg, 600 mg, Oral, 4x daily, Darren Moon MD, 600 mg at 10/26/24820 guaiFENesin (Mucinex) 12 hr tablet 600 mg, 600 mg, Oral, BID PRN, Sasha Nuñez DO hydrOXYzine HCl (Atarax) tablet 25 mg, 25 mg, Oral, q8h PRN, Sasha Nuñez, insulin glargine-yfgn 100 UNIT/ML injection 10 Units, 10 Units, Subcutaneous, Nightly, Sasha Nuñez DO, 10 Units at 10/25/242222 insulin lispro (Admelog) 100 units/mL injection - Correction - Resistant Dose, 0-10 Units, Subcutaneous, TID with meals, Sasha Nuñez DO insulin lispro (Admelog) injection - Correction - Nighttime Dose, 0-3 Units, Subcutaneous, Twice atnight, Sasha Nuñez DO loperamide (Imodium A-D) tablet 2 mg, 2 mg, Oral, 4x daily PRN, Sasha Nuñez, magic mouthwash BLM (FIRST-Mouthwash) suspension 15 mL, 15 mL, Swish & Spit, Before meals &nightly, Sasha Nuñez, DO, 15 mL at 10/26/24 0820 magnesium oxide (Mag-Ox) tablet 400 mg, 400 mg, Oral, BID, Sasha Nuñez, DO, 400 mg at 10/26/24 0821 magnesium sulfate IVPB 2 g, 2 g, Intravenous, Once, Darren Moon MD melatonin tablet 3 mg, 3 mg, Oral, Nightly PRN, Sasha Nuñez DO Tiotropium Crystal Monohydrate (Spiriva Respimat) 2.5 MCG/ACT inhaler 2 puff, 2 puff, Inhalation, Daily, 2 puff at 10/26/24 0820 AND mometasone-formoterol (Dulera 100) 100-5 MCG/ACT inhaler 2 puff, 2 puff, Inhalation, BID, Sasha Nuñez, DO, 2 puff at 10/26/24 0820 montelukast (Singulair) tablet 10 mg, 10 mg, Oral, Nightly, Sasha Nuñez, DO, 10 mg at 10/25/24 210 nystatin (Mycostatin) [id number] UNIT/ML suspension 500,000 Units, 5 mL, Swish & Swallow, 4x daily,Sasha Nuñez DO, 500,000 Units at 10/26/24 0821 ondansetron ODT (Zofran-ODT) disintegrating tablet 4 mg, 4 mg, Oral, q6h PRN OR ondansetron (Zofran) injection 4 mg, 4 mg, Intravenous, q6h PRN OR ondansetron (Zofran) 4 MG/5ML solution 4 mg,4 mg, Oral, q6h PRN, Sasha Nuñez, DO pantoprazole (Protonix) EC tablet 40 mg, 40 mg, Oral, Daily, Sasha Nuñez, DO, 40 mg at 10/26/24 0821 piperacillin-tazobactam (Zosyn) 4.5 g in sodium chloride 0.9% 100 mL IVPB (vial adapter required), 4.5 g, Intravenous, q6h, Sasha Nuñez, DO, Stopped at 10/26/24 0826 rivaroxaban (Xarelto) tablet 20 mg, 20 mg, Oral, q PM, Sasha Nuñez, DO, 20 mg at 10/25/24 1646 rOPINIRole [...] MINI PEN NEEDLES 31G X 5 MM [facility], , Disp: , Rfl: benzonatate (Tessalon) 100 MG capsule, Take 1 capsule by mouth 3 times a day as needed for cough. Do not crush or chew., Disp: 20 capsule, Rfl: 0 Blood Glucose Monitoring Suppl (McAfee Verio Flex System) w/Device kit, , Disp: , Rfl: Izouobp-Gumyjifbkco-Jhuaiykigg (Breztri Aerosphere) 160-9-4.8 MCG/ACT aerosol, Inhale 2 [...] fold daily., Disp: , Rfl: Continuous Glucose Burning Plant Operator (Dexcom G7 Burning Plant Operator) device, USE TO MEASURE BLOOD SUGAR DIRECTED, [...] be adjusted per the MD at [facility], Disp: 10 mL, Rfl: 12 Lantus SoloStar [...] mouth nightly., Disp: , Rfl: nystatin (Mycostatin) [id number] UNIT/ML suspension, Swish and swallow 5 mL [...] quick Participants in Care Family/Caregiver Present: No Inside Trucker: Not Applicable Presentation Oxygen Therapy: Supplemental oxygen [...] admission Level of Mobility: Ambulatory- community Mobility [place]: Independent gait with device History of Falls: [...] Mobility Bed Mobility Exam: Rolling/Turning Level of [place]: Stand-by assist Physical/Nonphysical Assist: Verbal Cues, Minimal cues Bed Mobility Exam: Scooting/Bridging Level of [place]: Stand-by assist Physical/Nonphysical Assist: Verbal Cues, Minimal cues Bed Mobility Exam: Supine to Sit Level of [place]: Stand-by assist Physical/Nonphysical Assist: Supervision Assistive Device: Bed rails Bed Mobility Exam: Sit to Supine Level of [place]: Stand-by assist Physical/Nonphysical Assist: Verbal Cues, Minimal cues Assistive Device: Bed rails Transfers Transfer Exam: Sit to stand Level of [place]: Stand-by assist (x 2 from EOB; x 1 to toilet) Physical/Nonphysical Assist: Verbal Cues, Minimal cues Assistive Device: Walker, rolling Transfer Exam: Stand to Sit Level of [place]: Stand-by assist (x 2 to EOB; x 1 to toilet) Physical/Nonphysical Assist: Verbal Cues, Minimal cues Assistive Device: Walker, rolling Toilet Transfer Level of [place]: Stand-by assist Physical/Nonphysical Assist: Verbal Cues, Minimal [...] exertion and daily schedule modification. Standardized Assessments [facility] 6-Click Daily Activities Help from Other: Don/Doff Regular Lower Body Clothings: None Help From Other: Bathing: Little Help From Other: Toileting: Little Help From Other: Don/Doff Upper Body Clothings: None Help From Other: Grooming: None Help From Other: Eating Meals: None [facility] 6 Click - Daily Activities [...] session. Participants in Care Family/Caregiver Present: No Inside Trucker: Not Applicable Presentation Oxygen Therapy: Supplemental oxygen [...] admission Level of Mobility: Ambulatory- community Mobility [place]: Independent gait with device History of Falls: No ADL Performance: Independent Patient/Family Goals Return [facility]. Objective Pain Pt denies being in any [...] glasses 08/12. Right Upper Extremity Examination RUE Assessment: Within [...] fatigue. Bed Mobility Exam: Rolling/Turning Level of [place]: Stand-by assist Physical/Nonphysical Assist: Verbal Cues, Minimal cues Bed Mobility Exam: Scooting/Bridging Level of [place]: Stand-by assist Physical/Nonphysical Assist: Verbal Cues, Minimal cues Bed Mobility Exam: Supine to Sit Level of [place]: Stand-by assist Physical/Nonphysical Assist: Supervision Bed Mobility Exam: Sit to Supine Level of [place]: Stand-by assist Physical/Nonphysical Assist: Verbal Cues, Minimal cues Transfers Transfer Interventions: Pt given verbal cues to push up from the bed to assume standing position and to reach back for the bed prior to sitting down to decrease fall risk. Transfer Exam: Sit to stand Level of [place]: Stand-by assist (x 2 from EOB; x 1 to toilet) Physical/Nonphysical Assist: Verbal Cues, Minimal cues Assistive Device: Walker, rolling Transfer Exam: Stand to Sit Level of [place]: Stand-by assist (x 2 to EOB; x 1 to toilet) Physical/Nonphysical Assist: Verbal Cues, Minimal cues Assistive Device: Walker, rolling Toilet Transfer Level of [place]: Stand-by assist Physical/Nonphysical Assist: Verbal Cues, Minimal [...] CGA. Standardized Assessments Standardized Assessments Standardized Assessments: [facility] 6-Clicks Mobility Assessment [facility] 6-Clicks Mobility Assessment Difficulty patient has turning [...] 3-5 steps with a railing?: A little [facility] 6-Clicks Mobility Assessment Total : 23 No [...] 10/25/2024 4:15 PM EDTAssociated Order(s): Consult to [facility] Images from the original note were not included. [facility] Medicine History & Physical Consult to [facility] Consult performed by: Darren Moon MD Consult [...] recent primary physician note, and most recent senior education specialist note. Past Medical History Past Medical [...] crush or chew. Blood Glucose Monitoring Suppl (McAfee Verio Flex System) w/Device kit Gtznwwc-Ymjavxrjqhy-Xolxlorgqi (Breztri Aerosphere) 160-9-4.8 MCG/ACT aerosol 2 puffs, 2 times daily Calcium Carb-Cholecalciferol 600-10 MG-MCG tablet 600 mg, Daily calcium carbonate (TUMS) 500 mg, 4 times daily PRN cetirizine (ZYRTEC) 10 mg, Daily ciclopirox (Penlac) 8 % solution Apply over affected nail fold daily. Continuous Glucose Burning Plant Operator (Interactif Visuel Système G7 Burning Plant Operator) device USE TO MEASURE BLOOD SUGAR DIRECTED Continuous Glucose Sensor (Sneaky Gamescom G6 Sensor) misc USE DIRECTED TO MEASURE [...] Can be adjustedper the MD at [facility] Lantus SoloStar 100 UNIT/ML injection pen 2 [...] SURGERY TUBAL LIGATION N/A Tubal Ligation from [employer] TYMPANOSTOMY TUBE PLACEMENT N/A Ear Surgery Eustachian Tube from [employer] [3] Family History Problem Relation Name Age [...] Ordered ESTUARDO SANTOS 10/25/24 1149 Consult to [facility] Once Specialty: Internal Medicine Provider: (Not yet assigned) Ordered ESTUARDO SANTOS 10/25/24 1149 ED to floor bed request Once Ordered ESTUARDO SANTOS 10/25/24 1025 POC Ultrasound - Bedside Once Comments: This order was created via procedure documentation Final result ESTUARDO SANTOS 10/25/24 1025 POC Ultrasound - Bedside Once Comments: This order was created via procedure documentation Final result ESTUARDO SANTOS [place] 10/25/24 1020 Troponin now and 120 min STAT Final result ESTUARDO SANOTS 10/25/24 1020 BNP STAT Final result ESTUARDO SANTOS [place] 10/25/[address] Angio Pulmonary Embolism Once [...] Blood gas panel, venous STAT Final result ESTUARDO SANTOS [place] 10/25/24 1016 Nasopharyngeal Respiratory Panel Once In process VARGAS ESTUARDO [place] 10/25/24 1016 SARS CoV-2/COVID-19 by PCR - Rapid Once In process VARGAS ESTUARDO [place] 10/25/24 1016 Once Canceled VRAGAS ESTUARDO [place] 10/25/24 1016 CBC w/diff STAT Final result SANTOS ESTUARDO [place] 10/25/24 1016 BMP STAT Final result SANTOS ESTUARDO [place] 10/25/24 1016 Blood Culture (Aerobic/Anaerobet Set) STAT Acknowledged VARGAS ESTUARDO [place] 10/25/24 1016 Blood Culture (Aerobic/Anaerobet Set) STAT Acknowledged VARGAS ESTUARDO [place] 10/25/24 1014 One time imaging Canceled DORIS CONTRERAS 10/25/24 0953 EKG now - STAT (adult) Once Preliminary result DORIS CONTRERAS ED Course as of 10/25/24 1333 Tue Oct 25, 2024 1021 On initial evaluation, patient on 3 L nasal cannula, hypotensive with initial blood pressure of 88/64. 1 L lactated ringer bolus started. Given history of COPD, giving 3 duo neb treatments [RM] 1022 EKG now - STAT (adult) Encounter Date: 10/25/24 -EKG now - STAT (adult): Result Value EKG DIAGNOSIS CLASS Normal Ventricular Rate 88 Atrial Rate 88 AL Interval 130 QRSD Interval 78 QT Interval 350 QTC Interval 423 P [place] 71 R [place] 17 T Wave [place] 44 Diagnosis Normal sinus rhythm Diagnosis Normal [...] SURGERY TUBAL LIGATION N/A Tubal Ligation from [employer] TYMPANOSTOMY TUBE PLACEMENT N/A Ear Surgery Eustachian Tube from [employer] [3] Family History Problem Relation Name Age [...] [facility], [address] [place] [phone] 11/29/2024 11:00 AM EDT Office Visit [facility] [address] [facility], [address]nd [place] [phone] Satnam Colvin MD [address] [facility] [address] [place] [address] 11/29/2024 12:30 PM EDT Appointment [facility] [address] [place] [phone] 11/30/2024 1:30 PM EDT Appointment [facility] [address] [place] [phone] 12/01/2024 2:00 PM EDT Appointment [facility] [address] [place] [phone] 12/06/2024 11:40 AM EDT Appointment [facility] Radiation [address] [facility]. [address] [place] [phone] Haven Blum, CABLE FERRYBOAT OPERATOR [address] [facility] [address] [place] [phone] 01/19/2025 9:30 AM EDT Appointment [facility] S Radiology [address], [address] [place] [address] 01/19/2025 10:45 AM EDT Office Visit [place] [facility] [address], [address] [place] [address] Abhilash Bangura MD [address] [place] [phone] 03/08/2025 1:00 PM EDT Office Visit [facility] Grady Wenceslao [address] [place] [address] Teresita Oconnell MD [address] [place] [address] Scheduled Referrals Name Type Priority Associated Diagnoses Order Schedule Discharge Ambulatory referral to [facility] Health Outpatient Referral Routine Pneumonia of right [...] ECG ADULT STAT 10/25/2024 10:12 AM EDT [facility] ED POCUS PROCDOC Routine 10/25/2024 9:51 AM EDT [facility] ED POCUS PROCDOC Routine 10/25/2024 9:51 AM EDT documented in this encounter Results * (ABNORMAL) POCT glucose meter (10/31/2024 4:36 PM EDT) [facility] POCT Glucose 110(H) 74 - 99 mg/dL 10/31/2024 4:38 PM EDT [facility] Comment:Accuracy of a glucos e result [...] 10/31/2024 4:38 PM EDT [facility] Cylinder Inspector And Tester ID Maryanne Raines 10/31/2024 4:38 PM EDT [facility] Device ID [id number] 10/31/2024 4:38 PM EDT [facility] Specimen Type POC Capillary 10/31/2024 4:38 PM EDT [facility] Blood Capillary blood specimen / Unknown 10/31/2024 4:36 PM EDT 10/31/2024 4:38 PM EDT us Robert Amin MD LAB POINT OF CARE TE ST DOCKED DEVICE UNSOLICITED RESULTS Final Result Performing Organization Address City/[facility] Co de Phone Number [facility]ALTH[facility]ARE [facility] [address] [place] [address] * (ABNORMAL) POCT glucose meter (10/31/2024 11:24 AM EDT) POCT Glucose 302(H) 74 - 99 mg/dL 10/31/2024 11:25 AM EDT [facility] Comment:Accuracy of [...] for testing. Comment 10/31/2024 11:25 AM EDT [facility] Cylinder Inspector And Tester ID Maryanne Raines 10/31/2024 11:25 AM EDT HEALTH[facility]ARE LAB Device ID [id number] 10/31/2024 11:25 AM EDT [facility] Specimen Type POC Capillary 10/31/2024 11:25 AM EDT [facility] Blood Capillary blood specimen / Unknown 10/31/2024 11:24 AM EDT 10/31/2024 11:25 AM EDT us Robert Amin MD LAB POINT OF CARE TE ST DOCKED DEVICE UNSOLICITED RESULTS Final Result Performing Organization Address City/[facility]/ZIP Co de Phone Number [facility]ALTH[facility]ARE [facility] [address] [place] [address] * Wilbur auris Surveillance by PCR (10/31/2024 10:43 AM EDT) Pathologist [facility] Wilbur auris PCR Result Not Detected Not Detected 11/01/2024 1:30 PM EDT [facility] Swab (Axilla and Groin) Non-blood Collection / Unknown 10/31/2024 10:43 AM EDT 10/31/2024 11:27 AM EDT Narrative [facility] - 11/01/2024 1:30 PM EDT This PCR assay was developed and its performance characteristics determined by [facility] as appropriate for clinical purposes. This assay has not been cleared or approved by the FDA, but is performed in a CLIA regulated laboratory that is qualified to perform high-complexity testing. us Robert Amin MD LAB MICROBIOLOGY - GENERAL ORD ERABLES Final Result [facility] [address] [place] [address] * (ABNORMAL) POCT glucose meter (10/31/2024 7:37 AM EDT) Pathologist [facility] POCT Glucose 238(H) 74 - 99 mg/dL 10/31/2024 7:38 AM EDT [facility] Comment:Accuracy of [...] for testing. Comment 10/31/2024 7:38 AM EDT [facility] Cylinder Inspector And Tester ID Maryanne Raines 10/31/2024 7:38 AM EDT [facility] Device ID [id number] 10/31/2024 7:38 AM EDT [facility] Specimen Type POC Capillary 10/31/2024 7:38 AM EDT [facility] Blood Capillary blood specimen / Unknown 10/31/2024 7:37 AM EDT 10/31/2024 7:38 AM EDT us Robert Amin MD LAB POINT OF CARE TE ST DOCKED DEVICE UNSOLICITED RESULTS Final Result [facility] [address] [place] [address] * (ABNORMAL) POCT glucose meter (10/31/2024 3:49 AM EDT) [facility] POCT Glucose 304(H) 74 - 99 mg/dL 10/31/2024 3:50 AM EDT [facility] Comment:Accuracy of a glucos e result [...] for testing. Comment 10/31/2024 3:50 AM EDT [facility] Cylinder Inspector And Tester ID Amanda Berman 3:50 AM EDT [facility] Device ID [id number] 10/31/2024 3:50 AM EDT [facility] Specimen Type POC Capillary 10/31/2024 3:50 AM EDT [facility] Blood Capillary blood specimen / Unknown 10/31/2024 3:49 AM EDT 10/31/2024 3:50 AM EDT Robert Amin MD LAB POINT OF CARE TE ST DOCKED DEVICE UNSOLICITED RESULTS Final Result [facility] [address] [place] [address] * (ABNORMAL) Morphology (10/31/2024 12:21 AM EDT) [facility] RBC Fragments/Schist ocytes Slight(A) (none) LAB HEMATOLOGY METHOD 10/31/2024 2:12 AM EDT [facility] Polychromasia Slight LAB HEMATOLOGY METHOD 10/31/2024 2:12 AM EDT [facility] RBC Morphology Slide Reviewed LAB HEMATOLOGY METHOD 10/31/2024 2:12 AM EDT [facility] Teardrop Cells Present LAB HEMATOLOGY METHOD 10/31/2024 2:12 AM EDT [facility] Platelet Estimate Platelet smear estimate consistent with automated count LAB HEMATOLOGY METHOD 10/31/2024 2:12 AM EDT [facility] Blood Venous blood specimen / Unknown Venipuncture / Unknown 10/31/2024 12:21 AM EDT 10/31/2024 12:55 AM EDT us Robert Amin MD LAB BLOOD ORDERABLES Final Res ult [facility] [address] [place] [address] * (ABNORMAL) Manual Differential (10/31/2024 12:21 AM EDT) Blasts % 0 % LAB HEMATOLOGY METHOD 10/31/2024 2:12 AM EDT [facility] Promyelocytes % 0 % LAB HEMATOLOGY METHOD 10/31/2024 2:12 AM EDT [facility] Myelocytes % 3 % LAB HEMATOLOGY METHOD 10/31/2024 2:12 AM EDT [facility] Metamyelocytes % 3 % LAB HEMATOLOGY METHOD 10/31/2024 2:12 AM EDT [facility] Neutrophils % 84 % LAB HEMATOLOGY METHOD 10/31/2024 2:12 AM EDT [facility] Lymphocytes % 6 % LAB HEMATOLOGY METHOD 10/31/2024 2:12 AM EDT [facility] Reactive Lymphocytes % 0 % LAB HEMATOLOGY METHOD 10/31/2024 2:12 AM EDT [facility] Monocytes % 3 % LAB HEMATOLOGY METHOD 10/31/2024 2:12 AM EDT [facility] Eosinophils % 1 % LAB HEMATOLOGY METHOD 10/31/2024 2:12 AM EDT [facility] Basophils % 0 % LAB HEMATOLOGY METHOD 10/31/2024 2:12 AM EDT [facility] Blasts Absolute 0.00 10*3/UL LAB HEMATOLOGY METHOD 10/31/2024 2:12 AM EDT [facility] Promyelocytes Absolute 0.00 10*3/uL LAB HEMATOLOGY METHOD 10/31/2024 2:12 AM EDT [facility] Myelocytes Absolute 0.20 10*3/uL LAB HEMATOLOGY METHOD 10/31/2024 2:12 AM EDT [facility] Metamyelocytes Absolute 0.20 10*3/uL LAB HEMATOLOGY METHOD 10/31/2024 2:12 AM EDT [facility] Neutrophils Absolute 5.62 1.60 - 6.10 10*3/uL LAB HEMATOLOGY METHOD 10/31/2024 2:12 AM EDT [facility] Lymphocytes Absolute 0.40(L) 1.20 - 3.90 10*3/uL LAB HEMATOLOGY METHOD 10/31/2024 2:12 AM EDT [facility] Reactive Lymphocytes Absolute 0.00 10*3/uL LAB HEMATOLOGY METHOD 10/31/2024 2:12 AM EDT [facility] Monocytes Absolute 0.20(L) 0.30 - 0.90 10*3/uL LAB HEMATOLOGY METHOD 10/31/2024 2:12 AM EDT [facility] Eosinophils Absolute 0.07 0.00 - 0.50 10*3/uL LAB HEMATOLOGY METHOD 10/31/2024 2:12 AM EDT [facility] Basophils Absolute 0.00 0.00 - 0.10 10*3/uL LAB HEMATOLOGY METHOD 10/31/2024 2:12 AM EDT [facility] Blood Venous blood specimen / Unknown Venipuncture / Unknown 10/31/2024 12:21 AM EDT 10/31/2024 12:55 AM EDT us Robert Amin MD LAB BLOOD ORDERABLES Final Res ult [facility] [address] [place] [address] * (ABNORMAL) CBC and Differential (10/31/2024 12:21 AM EDT) WBC Count 6.69 3.70 - 10.30 10*3/uL LAB HEMATOLOGY METHOD 10/31/2024 2:13 AM EDT [facility] RBC Count 2.34(L) 3.90 - 5.20 10*6/uL LAB HEMATOLOGY METHOD 10/31/2024 2:13 AM EDT [facility] HGB 7.1(L) 11.2 - 15.7 g/dL LAB HEMATOLOGY METHOD 10/31/2024 2:13 AM EDT [facility] HCT 23.9(L) 34.0 - 45.0 % LAB HEMATOLOGY METHOD 10/31/2024 2:13 AM EDT [facility] Platelet Count 302 155 - 369 10*3/uL LAB HEMATOLOGY METHOD 10/31/2024 2:13 AM EDT [facility] MCV 102(H) 79 - 98 fL LAB HEMATOLOGY METHOD 10/31/2024 2:13 AM EDT [facility] Comment:Results inconsistent with previous lab findings. MCH 30.3 26.0 - 32.0 pg LAB HEMATOLOGY METHOD 10/31/2024 2:13 AM EDT [facility] MCHC 29.7(L) 30.7 - 35.5 g/dL LAB HEMATOLOGY METHOD 10/31/2024 2:13 AM EDT [facility] RDW 17.6(H) 11.5 - 14.5 % LAB HEMATOLOGY METHOD 10/31/2024 2:13 AM EDT [facility] MPV 10.0 8.8 - 12.5 fL LAB HEMATOLOGY METHOD 10/31/2024 2:13 AM EDT [facility] nRBC 7.0(H) <=0.0 per 100 WBCs LAB HEMATOLOGY METHOD 10/31/2024 2:13 AM EDT [facility] Differential Type Manual LAB HEMATOLOGY METHOD 10/31/2024 2:13 AM EDT [facility] Blood Venous blood specimen / Unknown Venipuncture / Unknown 10/31/2024 12:21 AM EDT 10/31/2024 12:55 AM EDT Narrative [facility] - 10/31/2024 2:13 AM EDT [...] ORDERABLES Final Res ult Performing Organization Address [facility] Co de Phone Number [facility] [address] [place] [address] * (ABNORMAL) Magnesium, Plasma (10/31/2024 12:21 AM EDT) Magnesium, Plasma 1.5(L) 1.9 - 2.4 mg/dL 10/31/2024 1:25 AM EDT [facility] Blood Venous blood specimen / Unknown Venipuncture / Unknown 10/31/2024 12:21 AM EDT 10/31/2024 12:55 AM EDT Robert Amin MD LAB BLOOD ORDERABLES Final Res ult Performing Organization Address [facility] de Phone Number [facility] [address] [place] [address] * (ABNORMAL) Basic Metabolic Panel, Plasma (10/31/2024 12:21 AM EDT) Glucose, Plasma 337(H) 74 - 99 mg/dL 10/31/2024 1:24 AM EDT [facility] BUN, Plasma 15 8 - 23 mg/dL 10/31/2024 1:24 AM EDT [facility] Creatinine, Plasma 0.63 0.60 - 1.10 mg/dL 10/31/2024 1:24 AM EDT [facility] BUN/Creatinine Ratio 10/31/2024 1:24 AM EDT [facility] Sodium, Plasma 139 136 - 145 mmol/L 10/31/2024 1:24 AM EDT [facility] Potassium, Plasma 4.2 3.6 - 4.9 mmol/L 10/31/2024 1:24 AM EDT [facility] Chloride, Plasma 102 97 - 107 mmol/L 10/31/2024 1:24 AM EDT [facility] CO2, Plasma 25 22 - 29 mmol/L 10/31/2024 1:24 AM EDT [facility] Anion Gap 12 6 - 16 mmol/L 10/31/2024 1:24 AM EDT [facility] Total Calcium, Plasma 8.8(L) 8.9 - 10.2 mg/dL 10/31/2024 1:24 AM EDT [facility] eGFRcr 99.8 mL/min/1.7 3m*2 10/31/2024 1:24 AM EDT [facility] Comment:Reported eGFRcr in m L/min/1.73m2 is based the CKD-EPI 2020 equation that does not use a race coefficient. Blood Venous blood specimen / Unknown Venipuncture / Unknown 10/31/2024 12:21 AM EDT 10/31/2024 12:55 AM EDT us Robert Amin MD LAB BLOOD ORDERABLES Final Res ult [facility] [address] [place] [address] * (ABNORMAL) POCT glucose meter (10/30/2024 7:02 PM EDT) POCT Glucose 361(H) 74 - 99 mg/dL 10/30/2024 7:04 PM EDT [facility] Comment:Accuracy of [...] Comment 10/30/2024 7:04 PM EDT [facility] Cylinder Inspector And Tester ID Amanda Berman 7:04 PM EDT [facility] LAB Device ID [id number] 10/30/2024 7:04 PM EDT [facility] Specimen Type POC Capillary 10/30/2024 7:04 PM EDT [facility] Blood Capillary blood specimen / Unknown 10/30/2024 7:02 PM EDT 10/30/2024 7:04 PM EDT us Robert Amin MD LAB POINT OF CARE TE ST DOCKED DEVICE UNSOLICITED RESULTS Final Result [facility] [address] [place] [address] * (ABNORMAL) POCT glucose meter (10/30/2024 4:48 PM EDT) Pathologist [facility] POCT Glucose 235(H) 74 - 99 mg/dL 10/30/2024 4:50 PM EDT [facility] Comment:Accuracy of [...] for testing. Comment 10/30/2024 4:50 PM EDT [facility] Cylinder Inspector And Tester ID Maryanne Raines 10/30/2024 4:50 PM EDT HEALTHCARE LAB Device ID [id number] 10/30/2024 4:50 PM EDT [facility] Specimen Type POC Capillary 10/30/2024 4:50 PM EDT [facility] Blood Capillary blood specimen / Unknown 10/30/2024 4:48 PM EDT 10/30/2024 4:50 PM EDT us Robert Amin MD LAB POINT OF CARE TE ST DOCKED DEVICE UNSOLICITED RESULTS Final Result [facility] [address] [place] [address] * (ABNORMAL) POCT glucose meter (10/30/2024 11:23 AM EDT) Pathologist [facility] POCT Glucose 397(H) 74 - 99 mg/dL [...] 10/30/2024 11:24 AM EDT [facility] Cylinder Inspector And Tester ID Raines, Maryanne 10/30/2024 11:24 AM EDT HEALTH[facility]ARE LAB Device ID [id number] 10/30/2024 11:24 AM EDT [facility]ALTH[facility]ARE [facility] Specimen Type POC Capillary 10/30/2024 11:24 AM EDT [facility] Blood Capillary blood specimen / Unknown 10/30/2024 11:23 AM EDT 10/30/2024 11:24 AM EDT us Robert Amin MD LAB POINT OF CARE TE ST DOCKED DEVICE UNSOLICITED RESULTS Final Result Performing Organization Address City/[facility]/ZIP Co de Phone Number [facility] [address] [place] [address] * (ABNORMAL) Magnesium, Plasma (10/30/2024 8:35 AM EDT) Magnesium, Plasma 1.4(L) 1.9 - 2.4 mg/dL 10/30/2024 9:10 AM EDT [facility] Blood Venous blood specimen / Unknown Venipuncture / Unknown 10/30/2024 8:35 AM EDT 10/30/2024 8:41 AM EDT us Robert Amin MD LAB BLOOD ORDERABLES Final Res ult [facility] [address] [place] [address] * (ABNORMAL) Basic Metabolic Panel, Plasma (10/30/2024 8:35 AM EDT) Glucose, Plasma 347(H) 74 - 99 mg/dL 10/30/2024 9:10 AM EDT [facility] BUN, Plasma 11 8 - 23 mg/dL 10/30/2024 9:10 AM EDT [facility] Creatinine, Plasma 0.62 0.60 - 1.10 mg/dL 10/30/2024 9:10 AM EDT [facility] BUN/Creatinine Ratio 18 10/30/2024 9:10 AM EDT [facility] [facility] Sodium, Plasma 139 136 - 145 mmol/L 10/30/2024 9:10 AM EDT [facility] Potassium, Plasma 4.8 3.6 - 4.9 mmol/L 10/30/2024 9:10 AM EDT [facility] Chloride, Plasma 103 97 - 107 mmol/L 10/30/2024 9:10 AM EDT [facility] CO2, Plasma 27 22 - 29 mmol/L 10/30/2024 9:10 AM EDT [facility] Anion Gap 9 6 - 16 mmol/L 10/30/2024 9:10 AM EDT [facility] Total Calcium, Plasma 9.0 8.9 - 10.2 mg/dL 10/30/2024 9:10 AM EDT [facility] eGFRcr 100.2 mL/min/1.7 3m*2 10/30/2024 9:10 AM EDT [facility] Comment:Reported eGFRcr in m L/min/1.73m2 is based the CKD-EPI 2020 equation that does not use a race coefficient. Blood Venous blood specimen / Unknown Venipuncture / Unknown 10/30/2024 8:35 AM EDT 10/30/2024 8:41 AM EDT us Robert Amin MD LAB BLOOD ORDERABLES Final Res ult [facility] [address] [place] [address] * (ABNORMAL) POCT glucose meter (10/30/2024 7:24 AM EDT) POCT Glucose 307(H) 74 - 99 mg/dL 10/30/2024 7:26 AM EDT [facility] Comment:Accuracy of [...] for testing. Comment 10/30/2024 7:26 AM EDT [facility] Cylinder Inspector And Tester ID Maryanne Raines 10/30/2024 7:26 AM EDT [facility] Device ID [id number] 10/30/2024 7:26 AM EDT [facility] Specimen Type POC Capillary 10/30/2024 7:26 AM EDT [facility] Blood Capillary blood specimen / Unknown 10/30/2024 7:24 AM EDT 10/30/2024 7:26 AM EDT Robert Amin MD LAB POINT OF CARE TE ST DOCKED DEVICE UNSOLICITED RESULTS Final Result Performing Organization Address City/[facility] Co de Phone Number [facility] [address] [place] [address] * (ABNORMAL) POCT glucose meter (10/30/2024 3:08 [...] Comment 10/30/2024 3:10 AM EDT [facility] Cylinder Inspector And Tester ID Edwin Gunter 10/31/19 3:10 AM EDT [facility] Device ID [id number] 10/30/2024 3:10 AM EDT [facility] Specimen Type POC Capillary 10/30/2024 3:10 AM EDT [facility] Blood Capillary blood specimen / Unknown 10/30/2024 3:08 AM EDT 10/30/2024 3:10 AM EDT us Robert Amin MD LAB POINT OF CARE TE ST DOCKED DEVICE UNSOLICITED RESULTS Final Result Performing Organization Address City/[facility] Co de Phone Number [facility] [address] [place] [address] * (ABNORMAL) POCT glucose meter (10/29/2024 10:03 [...] for testing. Comment 10/29/2024 10:04 PM EDT [facility] Cylinder Inspector And Tester ID Edwin Gunter 10/30/19 10:04 PM EDT [facility] Device ID [id number] 10/29/2024 10:04 PM EDT [facility] Specimen Type POC Capillary 10/29/2024 10:04 PM EDT [facility] Blood Capillary blood specimen / Unknown 10/29/2024 10:03 PM EDT 10/29/2024 10:04 PM EDT Robert Amin MD LAB POINT OF CARE TE ST DOCKED DEVICE UNSOLICITED RESULTS Final Result Performing Organization Address City/State/[facility] Co de Phone Number [facility] [address] [place] [address] * (ABNORMAL) POCT glucose meter (10/29/2024 4:43 PM EDT) [facility] POCT Glucose 267(H) 74 - 99 mg/dL 10/29/2024 4:45 PM EDT [facility] Comment:Accuracy of a [...] for testing. Comment 10/29/2024 4:45 PM EDT [facility] Cylinder Inspector And Tester ID Kasey Frausto 10/30/19 4:45 PM EDT [facility] Device ID [id number] 10/29/2024 4:45 PM EDT [facility] Specimen Type POC Capillary 10/29/2024 4:45 PM EDT [facility] Blood Capillary blood specimen / Unknown 10/29/2024 4:43 PM EDT 10/29/2024 4:45 PM EDT Robert Amin MD LAB POINT OF CARE TE ST DOCKED DEVICE UNSOLICITED RESULTS Final Result Performing Organization Address [facility] de Phone Number [facility] [address] [place] [address] * (ABNORMAL) POCT glucose meter (10/29/2024 11:24 AM EDT) POCT Glucose 248(H) 74 - 99 mg/dL 10/29/2024 11:26 AM EDT [facility] Comment:Accuracy of [...] for testing. Comment 10/29/2024 11:26 AM EDT [facility] Cylinder Inspector And Tester ID GeKasey del toro 10/30/19 11:26 AM EDT [facility] Device ID [id number] 10/29/2024 11:26 AM EDT [facility] Specimen Type POC Capillary 10/29/2024 11:26 AM EDT [facility] Blood Capillary blood specimen / Unknown 10/29/2024 11:24 AM EDT 10/29/2024 11:26 AM EDT Robert Amin MD LAB POINT OF CARE TE ST DOCKED DEVICE UNSOLICITED RESULTS Final Result Performing Organization Address City/[facility] Co de Phone Number [facility] [address] [place] [address] * (ABNORMAL) POCT glucose meter (10/29/2024 7:35 AM EDT) POCT Glucose 246(H) 74 - 99 mg/dL [...] Comment 10/29/2024 7:36 AM EDT [facility] Cylinder Inspector And Tester ID Kasey Frausto 10/30/19 7:36 AM EDT [facility] Device ID [id number] 10/29/2024 7:36 AM EDT [facility] Specimen Type POC Capillary 10/29/2024 7:36 AM EDT [facility] Blood Capillary blood specimen / Unknown 10/29/2024 7:35 AM EDT 10/29/2024 7:36 AM EDT us Robert Amin MD LAB POINT OF CARE TE ST DOCKED DEVICE UNSOLICITED RESULTS Final Result Performing Organization Address [facility]/ZIP Co de Phone Number [facility] [address] [place] [address] * (ABNORMAL) Magnesium, Plasma (10/29/2024 3:03 AM EDT) Magnesium, Plasma 1.8(L) 1.9 - 2.4 mg/dL 10/29/2024 3:49 AM EDT [facility] Blood Venous blood specimen / Unknown Venipuncture / Unknown 10/29/2024 3:03 AM EDT 10/29/2024 3:09 AM EDT us Robert Amin MD LAB BLOOD ORDERABLES Final Res ult [facility] [address] [place] [address] * (ABNORMAL) Basic metabolic panel (10/29/2024 3:03 AM EDT) Glucose, Plasma 266(H) 74 - 99 mg/dL 10/29/2024 3:49 AM EDT [facility] BUN, Plasma 10 8 - 23 mg/dL 10/29/2024 3:49 AM EDT [facility] Creatinine, Plasma 0.66 0.60 - 1.10 mg/dL 10/29/2024 3:49 AM EDT [facility] BUN/Creatinine Ratio 15 10/29/2024 3:49 AM EDT [facility] Sodium, Plasma 145 136 - 145 mmol/L 10/29/2024 3:49 AM EDT [facility] Potassium, Plasma 4.8 3.6 - 4.9 mmol/L 10/29/2024 3:49 AM EDT [facility] Chloride, Plasma 109(H) 97 - 107 mmol/L 10/29/2024 3:49 AM EDT [facility] CO2, Plasma 25 22 - 29 mmol/L 10/29/2024 3:49 AM EDT [facility] Anion Gap 11 6 - 16 mmol/L 10/29/2024 3:49 AM EDT [facility] Total Calcium, Plasma 8.5(L) 8.9 - 10.2 mg/dL 10/29/2024 3:49 AM EDT [facility] eGFRcr 98.7 mL/min/1.7 3m*2 10/29/2024 3:49 AM EDT [facility] Comment:Reported eGFRcr in m L/min/1.73m2 is based the CKD-EPI 2020 equation that does not use a race coefficient. Blood Venous blood specimen / Unknown Venipuncture / Unknown 10/29/2024 3:03 AM EDT 10/29/2024 3:09 AM EDT us Robert Amin MD LAB BLOOD ORDERABLES Final Res ult [facility] [address] [place] [address] * (ABNORMAL) POCT glucose meter (10/29/2024 2:47 AM EDT) POCT Glucose 252(H) 74 - 99 mg/dL 10/29/2024 2:49 AM EDT [facility] Comment:Accuracy of a glucos e result [...] for testing. Comment 10/29/2024 2:49 AM EDT [facility] Cylinder Inspector And Tester ID Fang Lopez 10/29/2024 2:49 AM EDT [facility] Device ID [id number] 10/29/2024 2:49 AM EDT [facility] Specimen Type POC Capillary 10/29/2024 2:49 AM EDT [facility] Blood Capillary blood specimen / Unknown 10/29/2024 2:47 AM EDT 10/29/2024 2:49 AM EDT us Robert Amin MD LAB POINT OF CARE TE ST DOCKED DEVICE UNSOLICITED RESULTS Final Result Performing Organization Address City/[facility] Co de Phone Number [facility] [address] [place] [address] * (ABNORMAL) POCT glucose meter (10/28/2024 8:57 PM EDT) [facility] POCT Glucose 314(H) 74 - 99 mg/dL [...] for testing. Comment 10/28/2024 8:59 PM EDT [facility] Cylinder Inspector And Tester ID Abida Ken 10/28/2024 8:59 PM EDT [facility] Device ID [id number] 10/28/2024 8:59 PM EDT [facility] Specimen Type POC Capillary 10/28/2024 8:59 PM EDT [facility] Blood Capillary blood specimen / Unknown 10/28/2024 8:57 PM EDT 10/28/2024 8:59 PM EDT us Robert Amin MD LAB POINT OF CARE TE ST DOCKED DEVICE UNSOLICITED RESULTS Final Result Performing Organization Address City/[facility]/ZIP Co de Phone Number [facility] [address] [place] [address] * (ABNORMAL) POCT glucose meter (10/28/2024 5:11 PM EDT) [facility] POCT Glucose 340(H) 74 - 99 mg/dL 10/28/2024 5:13 PM EDT [facility] Comment:Accuracy of a [...] Comment 10/28/2024 5:13 PM EDT [facility] Cylinder Inspector And Tester ID Kasey Frausto 10/29/19 5:13 PM EDT [facility] Device ID [id number] 10/28/2024 5:13 PM EDT [facility] Specimen Type POC Capillary 10/28/2024 5:13 PM EDT [facility] Blood Capillary blood specimen / Unknown 10/28/2024 5:11 PM EDT 10/28/2024 5:13 PM EDT Robert Amin MD LAB POINT OF CARE TE ST DOCKED DEVICE UNSOLICITED RESULTS Final Result Performing Organization Address City/State/[facility] Co de Phone Number [facility] [address] [place] [address] * (ABNORMAL) POCT glucose meter (10/28/2024 11:28 AM EDT) [facility] POCT Glucose 261(H) 74 - 99 [...] for testing. Comment 10/28/2024 11:29 AM EDT [facility] Cylinder Inspector And Tester ID Kasey Frausto 10/29/19 11:29 AM EDT [facility] Device ID [id number] 10/28/2024 11:29 AM EDT [facility] Specimen Type POC Capillary 10/28/2024 11:29 AM EDT [facility] Blood Capillary blood specimen / Unknown 10/28/2024 11:28 AM EDT 10/28/2024 11:29 AM EDT Robert Amin MD LAB POINT OF CARE TE ST DOCKED DEVICE UNSOLICITED RESULTS Final Result Performing Organization Address [facility] de Phone Number [facility] [address] [place] [address] * (ABNORMAL) POCT glucose meter (10/28/2024 7:33 AM EDT) POCT Glucose 232(H) 74 - 99 mg/dL 10/28/2024 7:35 AM EDT [facility] Comment:Accuracy of [...] for testing. Comment 10/28/2024 7:35 AM EDT [facility] Cylinder Inspector And Tester ID GeKasey del toro 10/29/19 7:35 AM EDT [facility] Device ID [id number] 10/28/2024 7:35 AM EDT [facility] Specimen Type POC Capillary 10/28/2024 7:35 AM EDT [facility] Blood Capillary blood specimen / Unknown 10/28/2024 7:33 AM EDT 10/28/2024 7:35 AM EDT us Robert Amin MD LAB POINT OF CARE TE ST DOCKED DEVICE UNSOLICITED RESULTS Final Result Performing Organization Address City/[facility] Co de Phone Number [facility] [address] [place] [address] * (ABNORMAL) POCT glucose meter (10/28/2024 3:06 AM EDT) POCT Glucose 292(H) 74 - 99 mg/dL 10/28/2024 3:09 AM EDT [facility] Comment:Accuracy of [...] Comment 10/28/2024 3:09 AM EDT [facility] Cylinder Inspector And Tester ID Abida Ken 10/28/2024 3:09 AM EDT [facility] Device ID [id number] 10/28/2024 3:09 AM EDT [facility] Specimen Type POC Capillary 10/28/2024 3:09 AM EDT [facility] Blood Capillary blood specimen / Unknown 10/28/2024 3:06 AM EDT 10/28/2024 3:09 AM EDT us Robert Amin MD LAB POINT OF CARE TE ST DOCKED DEVICE UNSOLICITED RESULTS Final Result Performing Organization Address [facility] Co de Phone Number [facility] [address] [place] [address] * (ABNORMAL) Magnesium, Plasma (10/28/2024 3:00 AM EDT) Magnesium, Plasma 1.8(L) 1.9 - 2.4 mg/dL 10/28/2024 3:47 AM EDT [facility] Blood Venous blood specimen / Unknown Venipuncture / Unknown 10/28/2024 3:00 AM EDT 10/28/2024 3:19 AM EDT us Robert Amin MD LAB BLOOD ORDERABLES Final Res ult [facility] [address] [place] [address] * (ABNORMAL) Basic metabolic panel (10/28/2024 3:00 AM EDT) Glucose, Plasma 315(H) 74 - 99 mg/dL 10/28/2024 3:47 AM EDT [facility] BUN, Plasma 10 8 - 23 mg/dL 10/28/2024 3:47 AM EDT [facility] Creatinine, Plasma 0.71 0.60 - 1.10 mg/dL 10/28/2024 3:47 AM EDT [facility] BUN/Creatinine Ratio 14 10/28/2024 3:47 AM EDT [facility] Sodium, Plasma 142 136 - 145 mmol/L 10/28/2024 3:47 AM EDT [facility] Potassium, Plasma 4.0 3.6 - 4.9 mmol/L 10/28/2024 3:47 AM EDT [facility] Chloride, Plasma 107 97 - 107 mmol/L 10/28/2024 3:47 AM EDT [facility] CO2, Plasma 27 22 - 29 mmol/L 10/28/2024 3:47 AM EDT [facility] Anion Gap 8 6 - 16 mmol/L 10/28/2024 3:47 AM EDT [facility] Total Calcium, Plasma 8.2(L) 8.9 - 10.2 mg/dL 10/28/2024 3:47 AM EDT [facility] eGFRcr 95.7 mL/min/1.7 3m*2 10/28/2024 3:47 AM EDT [facility] Comment:Reported eGFRcr in m L/min/1.73m2 is based the CKD-EPI 2020 equation that does not use a race coefficient. Blood Venous blood specimen / Unknown Venipuncture / Unknown 10/28/2024 3:00 AM EDT 10/28/2024 3:19 AM EDT us Robert Amin MD LAB BLOOD ORDERABLES Final Res ult [facility] [address] [place] [address] * (ABNORMAL) POCT glucose meter (10/27/2024 9:38 PM EDT) POCT Glucose 294(H) 74 - 99 mg/dL 10/27/2024 9:40 PM EDT [facility] Comment:Accuracy of a glucos e result [...] for testing. Comment 10/27/2024 9:40 PM EDT [facility] Cylinder Inspector And Tester ID Abida Ken 10/27/2024 9:40 PM EDT [facility] Device ID [id number] 10/27/2024 9:40 PM EDT [facility] Specimen Type POC Capillary 10/27/2024 9:40 PM EDT [facility] Blood Capillary blood specimen / Unknown 10/27/2024 9:38 PM EDT 10/27/2024 9:40 PM EDT Robert Amin MD LAB POINT OF CARE TE ST DOCKED DEVICE UNSOLICITED RESULTS Final Result Performing Organization Address City/[facility] Co de Phone Number [facility] [address] [place] [address] * (ABNORMAL) POCT glucose meter (10/27/2024 4:51 PM EDT) [facility] POCT Glucose 236(H) 74 - 99 mg/dL [...] 10/27/2024 4:53 PM EDT [facility] Cylinder Inspector And Tester ID Sarina Tyson 10/27/2024 4:53 PM EDT [facility] Device ID [id number] 10/27/2024 4:53 PM EDT [facility] Specimen Type POC Capillary 10/27/2024 4:53 PM EDT [facility] Blood Capillary blood specimen / Unknown 10/27/2024 4:51 PM EDT 10/27/2024 4:53 PM EDT Robert Amin MD LAB POINT OF CARE TE ST DOCKED DEVICE UNSOLICITED RESULTS Final Result Performing Organization Address City/[facility]/ZIP Co de Phone Number [facility] [address] [place] [address] * (ABNORMAL) POCT glucose meter (10/27/2024 11:34 AM EDT) Pathologist [facility] POCT Glucose 403(H) 74 - 99 mg/dL [...] for testing. Comment 10/27/2024 11:36 AM EDT [facility] Cylinder Inspector And Tester ID Sarina Tyson 10/27/2024 11:36 AM EDT [facility] Device ID [id number] 10/27/2024 11:36 AM EDT [facility] Specimen Type POC Capillary 10/27/2024 11:36 AM EDT [facility] Blood Capillary blood specimen / Unknown 10/27/2024 11:34 AM EDT 10/27/2024 11:36 AM EDT Robert Amin MD LAB POINT OF CARE TE ST DOCKED DEVICE UNSOLICITED RESULTS Final Result Performing Organization Address City/State/[facility] Co de Phone Number [facility] [address] [place] [phone] * (ABNORMAL) POCT glucose meter (10/27/2024 7:30 AM EDT) Pathologist [facility] POCT Glucose 216(H) 74 - 99 mg/dL [...] for testing. Comment 10/27/2024 7:31 AM EDT [facility] Cylinder Inspector And Tester ID Sarina Tyson 10/27/2024 7:31 AM EDT [facility] Device ID [id number] 10/27/2024 7:31 AM EDT [facility] Specimen Type POC Capillary 10/27/2024 7:31 AM EDT [facility] Blood Capillary blood specimen / Unknown 10/27/2024 7:30 AM EDT 10/27/2024 7:31 AM EDT us Robert Amin MD LAB POINT OF CARE TE ST DOCKED DEVICE UNSOLICITED RESULTS Final Result Performing Organization Address City/[facility]/ZIP Co de Phone Number [facility] [address] [place] [address] * (ABNORMAL) Phosphorus (10/27/2024 4:04 AM EDT) Phosphorus, Plasma 2.4(L) 2.5 - 4.5 mg/dL 10/27/2024 5:08 AM EDT [facility] Blood Venous blood specimen / Unknown Venipuncture / Unknown 10/27/2024 4:04 AM EDT 10/27/2024 4:38 AM EDT us Robert Amin MD LAB BLOOD ORDERABLES Final Res ult Performing Organization Address City/[facility]/[place] [address] * (ABNORMAL) Magnesium, Plasma (10/27/2024 4:04 AM EDT) Magnesium, Plasma 2.5(H) 1.9 - 2.4 mg/dL 10/27/2024 5:08 AM EDT [facility] Blood Venous blood specimen / Unknown Venipuncture / Unknown 10/27/2024 4:04 AM EDT 10/27/2024 4:38 AM EDT us Robert Amin MD LAB BLOOD ORDERABLES Final Res ult Performing Organization Address City/[facility]/ZIP Co de Phone Number [facility] [address] [place] [address] * (ABNORMAL) Comprehensive metabolic panel (10/27/2024 4:04 AM EDT) Glucose, Plasma 226(H) 74 - 99 mg/dL 10/27/2024 5:08 AM EDT [facility] BUN, Plasma 7(L) 8 - 23 mg/dL 10/27/2024 5:08 AM EDT [facility] Creatinine, Plasma 0.70 0.60 - 1.10 mg/dL 10/27/2024 5:08 AM EDT [facility] BUN/Creatinine Ratio 10 10/27/2024 5:08 AM EDT [facility] Sodium, Plasma 141 136 - 145 mmol/L 10/27/2024 5:08 AM EDT [facility] Potassium, Plasma 4.5 3.6 - 4.9 mmol/L 10/27/2024 5:08 AM EDT [facility] Chloride, Plasma 104 97 - 107 mmol/L 10/27/2024 5:08 AM EDT [facility] CO2, Plasma 29 22 - 29 mmol/L 10/27/2024 5:08 AM EDT [facility] Anion Gap 8 6 - 16 mmol/L 10/27/2024 5:08 AM EDT [facility] Total Calcium, Plasma 8.3(L) 8.9 - 10.2 mg/dL 10/27/2024 5:08 AM EDT [facility] Total Protein 6.4 6.3 - 7.9 g/dL 10/27/2024 5:08 AM EDT [facility] Albumin, Plasma 3.1(L) 3.5 - 5.2 g/dL 10/27/2024 5:08 AM EDT [facility] AST, Plasma 22 10 - 35 U/L 10/27/2024 5:08 AM EDT [facility] ALT, Plasma 28 10 - 35 U/L 10/27/2024 5:08 AM EDT [facility] Alkaline Phosphatase, Plasma 95 46 - 142 U/L 10/27/2024 5:08 AM EDT [facility] Total Bilirubin, Plasma 0.5 0.2 - 1.1 mg/dL 10/27/2024 5:08 AM EDT [facility] eGFRcr 97.3 mL/min/1.7 3m*2 10/27/2024 5:08 AM EDT [facility] Comment:Reported eGFRcr in m L/min/1.73m2 is based the CKD-EPI 2020 equation that does not use a race coefficient. Blood Venous blood specimen / Unknown Venipuncture / Unknown 10/27/2024 4:04 AM EDT 10/27/2024 4:38 AM EDT us Robert Amin MD LAB BLOOD ORDERABLES Final Res ult [facility] [address] [place] [address] * (ABNORMAL) CBC and Differential (10/27/2024 4:04 AM EDT) WBC Count 4.25 3.70 - 10.30 10*3/uL LAB HEMATOLOGY METHOD 10/27/2024 4:31 AM EDT [facility] RBC Count 2.37(L) 3.90 - 5.20 10*6/uL LAB HEMATOLOGY METHOD 10/27/2024 4:31 AM EDT [facility] HGB 7.0(L) 11.2 - 15.7 g/dL LAB HEMATOLOGY METHOD 10/27/2024 4:31 AM EDT [facility] HCT 23.0(L) 34.0 - 45.0 % LAB HEMATOLOGY METHOD 10/27/2024 4:31 AM EDT [facility] Platelet Count 221 155 - 369 10*3/uL LAB HEMATOLOGY METHOD 10/27/2024 4:31 AM EDT [facility] MCV 97 79 - 98 fL LAB HEMATOLOGY METHOD 10/27/2024 4:31 AM EDT [facility] MCH 29.5 26.0 - 32.0 pg LAB HEMATOLOGY METHOD 10/27/2024 4:31 AM EDT [facility] MCHC 30.4(L) 30.7 - 35.5 g/dL LAB HEMATOLOGY METHOD 10/27/2024 4:31 AM EDT [facility] RDW 15.8(H) 11.5 - 14.5 % LAB HEMATOLOGY METHOD 10/27/2024 4:31 AM EDT [facility] MPV 10.0 8.8 - 12.5 fL LAB HEMATOLOGY METHOD 10/27/2024 4:31 AM EDT [facility] nRBC 1.6(H) <=0.0 per 100 WBCs LAB HEMATOLOGY METHOD 10/27/2024 4:31 AM EDT [facility] Differential Type Automated LAB HEMATOLOGY METHOD 10/27/2024 4:31 AM EDT [facility] Neutrophils % 74 % LAB HEMATOLOGY METHOD 10/27/2024 4:31 AM EDT [facility] Lymphocytes % 13 % LAB HEMATOLOGY METHOD 10/27/2024 4:31 AM EDT [facility] Monocytes % 5 % LAB HEMATOLOGY METHOD 10/27/2024 4:31 AM EDT [facility] Eosinophils % 0 % LAB HEMATOLOGY METHOD 10/27/2024 4:31 AM EDT [facility] Basophils % 1 % LAB HEMATOLOGY METHOD 10/27/2024 4:31 AM EDT [facility] Immature Granulocytes % 7 % LAB HEMATOLOGY METHOD 10/27/2024 4:31 AM EDT [facility] Neutrophils Absolute 3.19 1.60 - 6.10 10*3/uL LAB HEMATOLOGY METHOD 10/27/2024 4:31 AM EDT [facility] Lymphocytes Absolute 0.54(L) 1.20 - 3.90 10*3/uL LAB HEMATOLOGY METHOD 10/27/2024 4:31 AM EDT [facility] Monocytes Absolute 0.21(L) 0.30 - 0.90 10*3/uL LAB HEMATOLOGY METHOD 10/27/2024 4:31 AM EDT [facility] Eosinophils Absolute 0.00 0.00 - 0.50 10*3/uL LAB HEMATOLOGY METHOD 10/27/2024 4:31 AM EDT [facility] Basophils Absolute 0.03 0.00 - 0.10 10*3/uL LAB HEMATOLOGY METHOD 10/27/2024 4:31 AM EDT [facility] Immature Granulocytes Absolute 0.28(H) 0.00 - 0.06 10*3/uL LAB HEMATOLOGY METHOD 10/27/2024 4:31 AM T [facility] Blood Venous blood specimen / Unknown Venipuncture / Unknown 10/27/2024 4:04 AM EDT 10/27/2024 4:27 AM EDT [facility] - 10/27/2024 4:31 AM EDT Therapeutic decision making should be based on absolute values, rather than percentages. us Robert Amin MD LAB BLOOD ORDERABLES Final Res ult Performing Organization Address [facility] Co de Phone Number [facility] [address] [place] [address] * (ABNORMAL) POCT glucose meter (10/27/2024 3:59 AM EDT) POCT Glucose 204(H) 74 - 99 mg/dL [...] for testing. Comment 10/27/2024 4:01 AM EDT [facility] Cylinder Inspector And Tester ID Zhane Veliz 10/27/2024 4:01 AM EDT [facility] Device ID [id number] 10/27/2024 4:01 AM EDT [facility] Specimen Type POC Capillary 10/27/2024 4:01 AM EDT [facility] Blood Capillary blood specimen / Unknown 10/27/2024 3:59 AM EDT 10/27/2024 4:01 AM EDT us Robert Amin MD LAB POINT OF CARE TE ST DOCKED DEVICE UNSOLICITED RESULTS Final Result Performing Organization Address [facility] Co de Phone Number [facility] [address] [place] [address] * (ABNORMAL) POCT glucose meter (10/26/2024 7:52 PM EDT) POCT Glucose 321(H) 74 - 99 mg/dL 10/26/2024 7:57 PM EDT [facility] Comment:Accuracy of a [...] Comment 10/26/2024 7:57 PM EDT [facility] Cylinder Inspector And Tester ID Rupa Leyva 10/26/2024 7:57 PM EDT [facility] Device ID [id number] 10/26/2024 7:57 PM EDT [facility] Specimen Type POC Capillary 10/26/2024 7:57 PM EDT [facility] Blood Capillary blood specimen / Unknown 10/26/2024 7:52 PM EDT 10/26/2024 7:57 PM EDT us Robert Amin MD LAB POINT OF CARE TE ST DOCKED DEVICE UNSOLICITED RESULTS Final Result Performing Organization Address City/[facility]/ZIP Co de Phone Number [facility]ALTHCARE LAB [address] [place] [address] * (ABNORMAL) POCT glucose meter (10/26/2024 4:09 PM EDT) [facility] POCT Glucose 290(H) 74 - 99 [...] for testing. Comment 10/26/2024 4:11 PM EDT [facility]ARE [facility] Cylinder Inspector And Tester ID Nkechi Duff 025 4:11 PM EDT [facility]ARE [facility] Device ID [id number] 10/26/2024 4:11 PM EDT [facility] Specimen Type POC Capillary 10/26/2024 4:11 PM EDT [facility] Blood Capillary blood specimen / Unknown 10/26/2024 4:09 PM EDT 10/26/2024 4:11 PM EDT us Robert Amin MD LAB POINT OF CARE TE ST DOCKED DEVICE UNSOLICITED RESULTS Final Result [facility] [address] [place] [id number] * PERIPHERAL IV (SMARTFORM LINK) (10/26/2024 12:46 [...] POCT glucose meter (10/26/2024 10:57 AM EDT) [facility] POCT Glucose 175(H) 74 - 99 mg/dL 10/26/2024 10:59 AM EDT [facility] Comment:Accuracy of [...] for testing. Comment 10/26/2024 10:59 AM EDT [facility] Cylinder Inspector And Tester ID Nkechi Duff 025 10:59 AM EDT [facility]ALTHCARE LAB Device ID [id number] 10/26/2024 10:59 AM EDT [facility]ARE [facility] Specimen Type POC Capillary 10/26/2024 10:59 AM EDT [facility] Blood Capillary blood specimen / Unknown 10/26/2024 10:57 AM EDT 10/26/2024 10:59 AM EDT Robert Amin MD LAB POINT OF CARE TE ST DOCKED DEVICE UNSOLICITED RESULTS Final Result [facility] [address] [place] [address] * (ABNORMAL) POCT glucose meter (10/26/2024 5:58 AM EDT) [facility] POCT Glucose 142(H) 74 - 99 [...] Comment 10/26/2024 6:00 AM EDT [facility]ALTHCARE [facility] Cylinder Inspector And Tester ID Heena Ornelas 10/27/19 6:00 AM EDT [facility]ALTHCARE LAB Device ID [id number] 10/26/2024 6:00 AM EDT [facility] Specimen Type POC Capillary 10/26/2024 6:00 AM EDT [facility] Blood Capillary blood specimen / Unknown 10/26/2024 5:58 AM EDT 10/26/2024 6:00 AM EDT us Robert Amin MD LAB POINT OF CARE TE ST DOCKED DEVICE UNSOLICITED RESULTS Final Result Performing Organization Address City/[facility]/ZIP Co de Phone Number [facility] [address] [place] [address] * Streptococcus pneumoniae and Legionella Urinary Antigen (10/26/2024 5:37 AM EDT) [facility] Legionella pneumophila serogroup 1 Antigen Result (Urine) Negative Negative 10/26/2024 7:43 AM EDT [facility] Streptococcus pneumoniae Antigen Result (Urine) Negative Negative 10/26/2024 7:43 AM EDT [facility] Urine Urine specimen obtained by clean catch procedure / Unknown Non-blood Collection / Unknown 10/26/2024 5:37 AM EDT 10/26/2024 6:19 AM EDT Robert Amin MD LAB MICROBIOLOGY - GENERAL ORD ERABLES Final Result [facility] [address] [place] [address] * (ABNORMAL) Respiratory Culture and Gram Stain (10/26/2024 5:37 AM EDT) Culture Light Growth 10/31/2024 12:21 PM EDT [facility] Culture Pseudomonas aeruginosa MDR, KNOCK OUT HAND(AA) DONAVAN 10/31/2024 12:21 PM EDT [facility] Comment: This isolate has been identified using the FDA Approved MALDI Vappser CA System Tobramycin no longer reported. If [...] than 25 WBC/LPF(A) 10/31/2024 12:21 PM EDT [facility] Gram Stain Result Greater than 10 Epithelial cells/LPF(A) 10/31/2024 12:21 PM EDT [facility] Gram Stain Result Few Gram negative rods(A) 10/31/2024 12:21 PM EDT [facility] Gram Stain Result Rare Budding yeast(A) 10/31/2024 12:21 PM EDT [facility] Gram Stain Result Few Gram positive rods(A) 10/31/2024 12:21 PM EDT [facility] Gram Stain Result Rare Gram positive cocci in clusters(A) 10/31/2024 12:21 PM EDT [facility] Sputum Coughed sputum specimen / Unknown Non-blood Collection / Unknown 10/26/2024 5:37 AM EDT 10/26/2024 6:19 AM EDT Narrative Organism Antibiotic Method Susceptibility Pseudomonas aeruginosa MDR, KNOCK OUT HAND Aztreonam DONAVAN 8 ug/ml: Susceptible Pseudomonas aeruginosa MDR, KNOCK OUT HAND Cefepime DONAVAN 16 ug/ml: Resistant Pseudomonas aeruginosa MDR, KNOCK OUT HAND Levofloxacin DONAVAN >4 ug/ml: Resistant Pseudomonas aeruginosa MDR, KNOCK OUT HAND Piperacillin/Tazobactam DONAVAN 64/4 ug/ml: Intermediate Pseudomonas aeruginosa MDR, KNOCK OUT HAND Meropenem ETEST 32.0 ug/ml: Resistant Comment:The previously repor samaria component Tobramycin is no longer being reported. Robert Amin MD LAB MICROBIOLOGY - GENERAL ORD ERABLES Edited Result - Final Performing Organization Address [facility]/ZIP Co de Phone Number [facility] [address] [place] [address] * Blood Culture (Aerobic/Anaerobet Set) (10/26/2024 3:03 AM EDT) Culture No growth at day 5 10/31/2024 5:01 AM EDT [facility] Blood Structure of left hand / Unknown Venipuncture / Unknown 10/26/2024 3:03 AM EDT 10/26/2024 4:58 AM EDT Doris Contreras MD LAB MICROBIOLOGY - GENE RAL ORDERABLES Final Result Performing Organization Address [facility]/ZIP Co de Phone Number [facility] [address] [place] [address] * Phosphorus (10/26/2024 3:02 AM EDT) Phosphorus, Plasma 3.7 2.5 - 4.5 mg/dL 10/26/2024 3:47 AM EDT [facility] Blood Venous blood specimen / Unknown Venipuncture / Unknown 10/26/2024 3:02 AM EDT 10/26/2024 3:13 AM EDT Robert Amin MD LAB BLOOD ORDERABLES Final Res ult Performing Organization Address [facility]/ZIP Co de Phone Number [facility] [address] [place] [address] * (ABNORMAL) Magnesium, Plasma (10/26/2024 3:02 AM EDT) Magnesium, Plasma 1.2(L) 1.9 - 2.4 mg/dL 10/26/2024 3:47 AM EDT [facility] Blood Venous blood specimen / Unknown Venipuncture / Unknown 10/26/2024 3:02 AM EDT 10/26/2024 3:13 AM EDT us Robert Amin MD LAB BLOOD ORDERABLES Final Res ult [facility] [address] [place] [address] * (ABNORMAL) Comprehensive metabolic panel (10/26/2024 3:02 AM EDT) Glucose, Plasma 175(H) 74 - 99 mg/dL 10/26/2024 3:47 AM EDT [facility] BUN, Plasma 9 8 - 23 mg/dL 10/26/2024 3:47 AM EDT [facility] Creatinine, Plasma 0.88 0.60 - 1.10 mg/dL 10/26/2024 3:47 AM EDT [facility] BUN/Creatinine Ratio 10 10/26/2024 3:47 AM EDT [facility] Sodium, Plasma 140 136 - 145 mmol/L 10/26/2024 3:47 AM EDT [facility] Potassium, Plasma 3.6 3.6 - 4.9 mmol/L 10/26/2024 3:47 AM EDT [facility] Chloride, Plasma 100 97 - 107 mmol/L 10/26/2024 3:47 AM EDT [facility] CO2, Plasma 29 22 - 29 mmol/L 10/26/2024 3:47 AM EDT [facility] Anion Gap 11 6 - 16 mmol/L 10/26/2024 3:47 AM EDT [facility] Total Calcium, Plasma 8.1(L) 8.9 - 10.2 mg/dL 10/26/2024 3:47 AM EDT [facility] Total Protein 6.1(L) 6.3 - 7.9 g/dL 10/26/2024 3:47 AM EDT [facility] Albumin, Plasma 2.9(L) 3.5 - 5.2 g/dL 10/26/2024 3:47 AM EDT [facility] AST, Plasma 21 10 - 35 U/L 10/26/2024 3:47 AM EDT [facility] ALT, Plasma 24 10 - 35 U/L 10/26/2024 3:47 AM EDT [facility] Alkaline Phosphatase, Plasma 90 46 - 142 U/L 10/26/2024 3:47 AM EDT [facility] Total Bilirubin, Plasma 0.6 0.2 - 1.1 mg/dL 10/26/2024 3:47 AM EDT [facility] eGFRcr 73.9 mL/min/1.7 3m*2 10/26/2024 3:47 AM EDT [facility] Comment:Reported eGFRcr in m L/min/1.73m2 is based the CKD-EPI 2020 equation that does not use a race coefficient. Blood Venous blood specimen / Unknown Venipuncture / Unknown 10/26/2024 3:02 AM EDT 10/26/2024 3:13 AM EDT us Robert mAin MD LAB BLOOD ORDERABLES Final Res ult [facility] [address] [place] [address] * (ABNORMAL) CBC and Differential (10/26/2024 3:02 AM EDT) WBC Count 5.26 3.70 - 10.30 10*3/uL LAB HEMATOLOGY METHOD 10/26/2024 3:10 AM EDT [facility] RBC Count 2.28(L) 3.90 - 5.20 10*6/uL LAB HEMATOLOGY METHOD 10/26/2024 3:10 AM EDT [facility] HGB 7.0(L) 11.2 - 15.7 g/dL LAB HEMATOLOGY METHOD 10/26/2024 3:10 AM EDT [facility] HCT 22.0(L) 34.0 - 45.0 % LAB HEMATOLOGY METHOD 10/26/2024 3:10 AM EDT [facility] Platelet Count 184 155 - 369 10*3/uL LAB HEMATOLOGY METHOD 10/26/2024 3:10 AM EDT [facility] MCV 97 79 - 98 fL LAB HEMATOLOGY METHOD 10/26/2024 3:10 AM EDT [facility] MCH 30.7 26.0 - 32.0 pg LAB HEMATOLOGY METHOD 10/26/2024 3:10 AM EDT [facility] MCHC 31.8 30.7 - 35.5 g/dL LAB HEMATOLOGY METHOD 10/26/2024 3:10 AM EDT [facility] RDW 15.7(H) 11.5 - 14.5 % LAB HEMATOLOGY METHOD 10/26/2024 3:10 AM EDT [facility] MPV 9.8 8.8 - 12.5 fL LAB HEMATOLOGY METHOD 10/26/2024 3:10 AM EDT [facility] nRBC 2.1(H) <=0.0 per 100 WBCs LAB HEMATOLOGY METHOD 10/26/2024 3:10 AM EDT [facility] Differential Type Automated LAB HEMATOLOGY METHOD 10/26/2024 3:10 AM EDT [facility] Neutrophils % 80 % LAB HEMATOLOGY METHOD 10/26/2024 3:10 AM EDT [facility] Lymphocytes % 9 % LAB HEMATOLOGY METHOD 10/26/2024 3:10 AM EDT [facility] Monocytes % 6 % LAB HEMATOLOGY METHOD 10/26/2024 3:10 AM EDT [facility] Eosinophils % 0 % LAB HEMATOLOGY METHOD 10/26/2024 3:10 AM EDT [facility] Basophils % 0 % LAB HEMATOLOGY METHOD 10/26/2024 3:10 AM EDT [facility] Immature Granulocytes % 5 % LAB HEMATOLOGY METHOD 10/26/2024 3:10 AM EDT [facility] Neutrophils Absolute 4.19 1.60 - 6.10 10*3/uL LAB HEMATOLOGY METHOD 10/26/2024 3:10 AM EDT [facility] Lymphocytes Absolute 0.48(L) 1.20 - 3.90 10*3/uL LAB HEMATOLOGY METHOD 10/26/2024 3:10 AM EDT [facility] Monocytes Absolute 0.31 0.30 - 0.90 10*3/uL LAB HEMATOLOGY METHOD 10/26/2024 3:10 AM EDT [facility] Eosinophils Absolute 0.01 0.00 - 0.50 10*3/uL LAB HEMATOLOGY METHOD 10/26/2024 3:10 AM EDT [facility] Basophils Absolute 0.02 0.00 - 0.10 10*3/uL LAB HEMATOLOGY METHOD 10/26/2024 3:10 AM EDT [facility] Immature Granulocytes Absolute 0.25(H) 0.00 - 0.06 10*3/uL LAB HEMATOLOGY METHOD 10/26/2024 3:10 AM EDT [facility] Blood Venous blood specimen / Unknown Venipuncture / Unknown 10/26/2024 3:02 AM EDT 10/26/2024 3:06 AM EDT Narrative [facility] - 10/26/2024 3:10 AM EDT Therapeutic decision making should be based on absolute values, rather than percentages. us Robert Amin MD LAB BLOOD ORDERABLES Final Res ult Performing Organization Address [facility] Co de Phone Number [facility] [address] [place] [address] * Lactate, venous (10/26/2024 3:02 AM EDT) Pathologist [facility] Lactate, Venous, Whole Blood 0.8 0.5 - 2.2 mmol/L LAB HEMATOLOGY METHOD 10/26/2024 3:15 AM EDT [facility] Blood Venous blood specimen / Unknown Venipuncture / Unknown 10/26/2024 3:02 AM EDT 10/26/2024 3:13 AM EDT us Robert Amin MD LAB BLOOD ORDERABLES Final Res ult Performing Organization Address City/[facility]/ZIP Co de Phone Number [facility] [address] [place] [address] * (ABNORMAL) POCT glucose meter (10/25/2024 9:25 PM EDT) Pathologist [facility] POCT Glucose 170(H) 74 - 99 mg/dL 10/25/2024 9:27 PM EDT [facility] Comment:Accuracy of a glucos e result [...] for testing. Comment 10/25/2024 9:27 PM EDT [facility]ALTH[facility]ARE [facility] Cylinder Inspector And Tester ID Carisa Coleman 10/25/2024 9:27 PM EDT [facility]ALTH[facility]ARE LAB Device ID [id number] 10/25/2024 9:27 PM EDT [facility] Specimen Type POC Capillary 10/25/2024 9:27 PM EDT [facility] Blood Capillary blood specimen / Unknown 10/25/2024 9:25 PM EDT 10/25/2024 9:27 PM EDT us Robert Amin MD LAB POINT OF CARE TE ST DOCKED DEVICE UNSOLICITED RESULTS Final Result Performing Organization Address City/[facility] Co de Phone Number [facility] [address] [place] [address] * Blood Culture (Aerobic/Anaerobet Set) (10/25/2024 9:10 PM EDT) [facility] Culture No growth at day 5 10/30/2024 10:02 PM EDT [facility] Blood Venous blood specimen / Unknown Venipuncture / Unknown 10/25/2024 9:10 PM EDT 10/25/2024 9:51 PM EDT us Doris Contreras MD LAB MICROBIOLOGY - GENE RAL ORDERABLES Final Result Performing Organization Address City/[facility] Co de Phone Number [facility] [address] [place] [address] * ECG Adult (10/25/2024 8:35 PM EDT) EKG DIAGNOSIS CLASS Borderline Normal MUSE ECG Ventricular Rate 97 BPM MUSE ECG Atrial Rate 97 BPM MUSE ECG AL Interval 128 ms MUSE ECG QRSD Interval 88 ms MUSE ECG QT Interval 334 ms MUSE ECG QTC Interval 424 ms MUSE ECG P [place] 65 degrees MUSE ECG R [place] 25 degrees MUSE ECG T Wave [place] 57 degrees MUSE ECG Diagnosis Normal sinus rhythm MUSE ECG Diagnosis RSR' pattern in V1 & V2 MUSE ECG Diagnosis Otherwise normal ECG MUSE ECG Diagnosis MUSE ECG Diagnosis Confirmed by Jeff Jackson ([id number]) on 10/25/2024 8:38:22 PM MUSE ECG 10/25/2024 8:35 PM EDT 10/25/2024 8:38 PM EDT Robert Amin MD ECG ORDERABLES Final Result MUSE ECG * Methicillin Resistant Staphylococcus aureus (MRSA) by PCR (10/25/2024 6:32 PM EDT) Pathologist [facility] Methicillin Resistant Staphylococcus aureus (MRSA) by PCR Not Detected Not Detected 10/25/2024 8:41 PM EDT [facility] Swab Both anterior nares / Unknown Non-blood Collection / Unknown 10/25/2024 6:32 PM EDT 10/25/2024 6:58 PM EDT Narrative [facility] - 10/25/2024 8:41 PM EDT [...] ORD ERABLES Final Result Performing Organization Address City/[facility] Co de Phone Number [facility] [address] [place] [address] * (ABNORMAL) POCT glucose meter (10/25/2024 4:34 PM EDT) POCT Glucose 102(H) 74 - 99 mg/dL 10/25/2024 4:35 PM EDT [facility] Comment:Accuracy of a glucos e result [...] for testing. Comment 10/25/2024 4:35 PM EDT [facility] Cylinder Inspector And Tester ID Sabiha Lobato 025 4:35 PM EDT [facility] Device ID [id number] 10/25/2024 4:35 PM EDT [facility]ALTH[facility]ARE LAB Specimen Type POC Capillary 10/25/2024 4:35 PM EDT [facility] Blood Capillary blood specimen / Unknown 10/25/2024 4:34 PM EDT 10/25/2024 4:35 PM EDT Robert Amin MD LAB POINT OF CARE TE ST DOCKED DEVICE UNSOLICITED RESULTS Final Result Performing Organization Address [facility] Co de Phone Number [facility] [address] [place] [address] * (ABNORMAL) Troponin T, High Sensitivity, 2 Hour, Plasma (10/25/2024 1:16 PM EDT) [facility] Troponin T, High Sensitivity, 2 Hour 19(H) <14 ng/L 10/25/2024 1:40 PM EDT [facility] Troponin Delta 2 <10 ng/L 10/25/2024 1:40 PM EDT [facility] Troponin Delta Interpretation Not Significant 10/25/2024 1:40 PM EDT [facility] Comment:Not Significant. No acute change in troponin observed between the baseline and 2 hour samples. Blood Venous blood specimen / Unknown Venipuncture / Unknown 10/25/2024 1:16 PM EDT 10/25/2024 1:20 PM EDT Doris Contreras MD LAB BLOOD ORDERABLES Fi nal Result Performing Organization Address City/[facility]/ZIP Co de Phone Number [facility] [address] [place] [address] * CT Angio Pulmonary Embolism (10/25/2024 11:02 [...] Detected Not Detected 10/25/2024 12:13 PM EDT [facility] Swab Nasopharyngeal structure / Unknown Non-blood Collection / Unknown 10/25/2024 10:42 AM EDT 10/25/2024 11:16 AM EDT Narrative [facility] - 10/25/2024 12:13 PM EDT [...] clinical signs and symptoms consistent with COVID-19. us Doris Contreras MD LAB MICROBIOLOGY - GENE [facility] ORDERABLES Final Result [facility] [address] [place] [address] * Nasopharyngeal Respiratory Panel (10/25/2024 10:42 AM EDT) Nasopharyngeal Respiratory PCR Interpretation Not Detected for all analytes Not Detected for all analytes 10/25/2024 3:07 PM EDT [facility] Swab Nasopharyngeal structure / Unknown Non-blood Collection / Unknown 10/25/2024 10:42 AM EDT 10/25/2024 11:16 AM EDT Narrative [facility] - 10/25/2024 3:07 PM EDT [...] Respiratory PCR Panel is performed using the Re[employer]lex instrument. This test is FDA approved for use with Nasopharyngeal swabs only. This test is used for clinical purposes. It should not be regarded as investigational or for research. The [facility] Clinical Microbiology Laboratory is certified under the Clinical Laboratory Improvement Amendments of 1988 (CLIA-88) as qualified to perform high complexity clinical laboratory testing. Doris Contreras MD LAB MICROBIOLOGY - GENE RAL ORDERABLES Final Result Performing Organization Address [facility]/ZIP Co de Phone Number [facility] [address] [place] [address] * (ABNORMAL) BNP (10/25/2024 10:28 AM EDT) N-Terminal, PROBNP, Plasma 1,887(H) 0 - 899 pg/mL 10/25/2024 10:59 AM EDT [facility] Blood Venous blood specimen / Unknown Venipuncture / Unknown 10/25/2024 10:28 AM EDT 10/25/2024 10:35 AM EDT Doris Contreras MD LAB BLOOD ORDERABLES Fi nal Result Performing Organization Address [facility] Co de Phone Number [facility] [address] [place] [address] * (ABNORMAL) Troponin now and 120 min (10/25/2024 10:28 AM EDT) Troponin T, High Sensitivity, 0 Hour 21(H) <14 ng/L 10/25/2024 10:59 AM EDT [facility] Blood Venous blood specimen / Unknown Venipuncture / Unknown 10/25/2024 10:28 AM EDT 10/25/2024 10:35 AM EDT Doris Contreras MD LAB BLOOD ORDERABLES Fi nal Result Performing Organization Address [facility]/ZIP Co de Phone Number [facility] [address] [place] [address] * (ABNORMAL) Blood gas panel, venous (10/25/2024 10:28 AM EDT) pH, Venous 7.39 7.32 - 7.43 LAB HEMATOLOGY METHOD 10/25/2024 10:32 AM EDT [facility] pCO2, Venous 50 37 - 52 mmHg LAB HEMATOLOGY METHOD 10/25/2024 10:32 AM EDT [facility] pO2, Venous 47(H) 25 - 40 mmHg LAB HEMATOLOGY METHOD 10/25/2024 10:32 AM EDT [facility] SO2, Measured, Venous 79 65 - 80 % LAB HEMATOLOGY METHOD 10/25/2024 10:32 AM EDT [facility] Base Excess, Venous 4.4(H) -2.0 - 3.0 mmol/L LAB HEMATOLOGY METHOD 10/25/2024 10:32 AM EDT [facility] Bicarbonate, Calculated, Venous 30(H) 22 - 26 mmol/L LAB HEMATOLOGY METHOD 10/25/2024 10:32 AM EDT [facility] Hematocrit, Whole Blood 23.3(L) 34.0 - 45.0 % LAB HEMATOLOGY METHOD 10/25/2024 10:32 AM EDT [facility] Sodium, Whole Blood 142 136 - 145 mmol/L LAB HEMATOLOGY METHOD 10/25/2024 10:32 AM EDT [facility] Potassium, Whole Blood 3.9 3.6 - 4.9 mmol/L LAB HEMATOLOGY METHOD 10/25/2024 10:32 AM EDT [facility] Chloride, Whole Blood 101 97 - 107 mmol/L LAB HEMATOLOGY METHOD 10/25/2024 10:32 AM EDT [facility] Glucose, Whole Blood 200(H) 74 - 99 mg/dL LAB HEMATOLOGY METHOD 10/25/2024 10:32 AM EDT [facility] Lactate, Venous, Whole Blood 2.6(H) 0.5 - 2.2 mmol/L LAB HEMATOLOGY METHOD 10/25/2024 10:32 AM EDT [facility] Ionized Calcium, Whole Blood 4.4(L) 4.6 - 5.1 mg/dL LAB HEMATOLOGY METHOD 10/25/2024 10:32 AM EDT [facility] Blood Venous blood specimen / Unknown Venipuncture / Unknown 10/25/2024 10:28 AM EDT 10/25/2024 10:31 AM EDT us Doris Contreras MD LAB BLOOD ORDERABLES Fi nal Result [facility] [address] [place] [address] * (ABNORMAL) BMP (10/25/2024 10:28 AM EDT) Glucose, Plasma 197(H) 74 - 99 mg/dL 10/25/2024 10:59 AM EDT [facility] BUN, Plasma 13 8 - 23 mg/dL 10/25/2024 10:59 AM EDT [facility] Creatinine, Plasma 0.94 0.60 - 1.10 mg/dL 10/25/2024 10:59 AM EDT [facility] BUN/Creatinine Ratio 14 10/25/2024 10:59 AM EDT [facility] Sodium, Plasma 142 136 - 145 mmol/L 10/25/2024 10:59 AM EDT [facility] Potassium, Plasma 4.0 3.6 - 4.9 mmol/L 10/25/2024 10:59 AM EDT [facility] Chloride, Plasma 102 97 - 107 mmol/L 10/25/2024 10:59 AM EDT [facility] CO2, Plasma 25 22 - 29 mmol/L 10/25/2024 10:59 AM EDT [facility] Anion Gap 15 6 - 16 mmol/L 10/25/2024 10:59 AM EDT [facility] Total Calcium, Plasma 8.2(L) 8.9 - 10.2 mg/dL 10/25/2024 10:59 AM EDT [facility] eGFRcr 68.3 mL/min/1.7 3m*2 10/25/2024 10:59 AM EDT [facility] Comment:Reported eGFRcr in m L/min/1.73m2 is based the CKD-EPI 2020 equation that does not use a race coefficient. Blood Venous blood specimen / Unknown Venipuncture / Unknown 10/25/2024 10:28 AM EDT 10/25/2024 10:35 AM EDT us Doris Contreras MD LAB BLOOD ORDERABLES Fi nal Result [facility] [address] [place] [address] * (ABNORMAL) CBC w/diff (10/25/2024 10:28 AM EDT) Pathologist [facility] WBC Count 6.43 3.70 - 10.30 10*3/uL LAB HEMATOLOGY METHOD 10/25/2024 10:38 AM EDT [facility] RBC Count 2.44(L) 3.90 - 5.20 10*6/uL LAB HEMATOLOGY METHOD 10/25/2024 10:38 AM EDT [facility] HGB 7.4(L) 11.2 - 15.7 g/dL LAB HEMATOLOGY METHOD 10/25/2024 10:38 AM EDT [facility] HCT 23.5(L) 34.0 - 45.0 % LAB HEMATOLOGY METHOD 10/25/2024 10:38 AM EDT [facility] Platelet Count 175 155 - 369 10*3/uL LAB HEMATOLOGY METHOD 10/25/2024 10:38 AM EDT [facility] MCV 96 79 - 98 fL LAB HEMATOLOGY METHOD 10/25/2024 10:38 AM EDT [facility] MCH 30.3 26.0 - 32.0 pg LAB HEMATOLOGY METHOD 10/25/2024 10:38 AM EDT [facility] MCHC 31.5 30.7 - 35.5 g/dL LAB HEMATOLOGY METHOD 10/25/2024 10:38 AM EDT [facility] RDW 15.7(H) 11.5 - 14.5 % LAB HEMATOLOGY METHOD 10/25/2024 10:38 AM EDT [facility] MPV 10.3 8.8 - 12.5 fL LAB HEMATOLOGY METHOD 10/25/2024 10:38 AM EDT [facility] nRBC 1.9(H) <=0.0 per 100 WBCs LAB HEMATOLOGY METHOD 10/25/2024 10:38 AM EDT [facility] Differential Type Automated LAB HEMATOLOGY METHOD 10/25/2024 10:38 AM EDT [facility] [facility] Neutrophils % 71 % LAB HEMATOLOGY METHOD 10/25/2024 10:38 AM EDT [facility] Lymphocytes % 16 % LAB HEMATOLOGY METHOD 10/25/2024 10:38 AM EDT [facility] Monocytes % 8 % LAB HEMATOLOGY METHOD 10/25/2024 10:38 AM EDT [facility] Eosinophils % 0 % LAB HEMATOLOGY METHOD 10/25/2024 10:38 AM EDT [facility] Basophils % 1 % LAB HEMATOLOGY METHOD 10/25/2024 10:38 AM EDT [facility] Immature Granulocytes % 4 % LAB HEMATOLOGY METHOD 10/25/2024 10:38 AM EDT [facility] Neutrophils Absolute 4.60 1.60 - 6.10 10*3/uL LAB HEMATOLOGY METHOD 10/25/2024 10:38 AM EDT [facility] Lymphocytes Absolute 1.01(L) 1.20 - 3.90 10*3/uL LAB HEMATOLOGY METHOD 10/25/2024 10:38 AM EDT [facility] Monocytes Absolute 0.49 0.30 - 0.90 10*3/uL LAB HEMATOLOGY METHOD 10/25/2024 10:38 AM EDT [facility] Eosinophils Absolute 0.02 0.00 - 0.50 10*3/uL LAB HEMATOLOGY METHOD 10/25/2024 10:38 AM EDT [facility] Basophils Absolute 0.04 0.00 - 0.10 10*3/uL LAB HEMATOLOGY METHOD 10/25/2024 10:38 AM EDT [facility] Immature Granulocytes Absolute 0.27(H) 0.00 - 0.06 10*3/uL LAB HEMATOLOGY METHOD 10/25/2024 10:38 AM EDT [facility] Blood Venous blood specimen / Unknown Venipuncture / Unknown 10/25/2024 10:28 AM EDT 10/25/2024 10:35 AM EDT Narrative [facility] - 10/25/2024 10:38 AM EDT Therapeutic decision making should be based on absolute values, rather than percentages. us Doris Contreras MD LAB BLOOD ORDERABLES Fi nal Result [facility] [address] [place] [address] * EKG now - STAT (adult) (10/25/2024 10:12 AM EDT) EKG DIAGNOSIS CLASS Borderline Normal MUSE ECG Ventricular Rate 88 BPM MUSE ECG Atrial Rate 88 BPM MUSE ECG AL Interval 130 ms MUSE ECG QRSD Interval 78 ms MUSE ECG QT Interval 350 ms MUSE ECG QTC Interval 423 ms MUSE ECG P [place] 71 degrees MUSE ECG R [place] 17 degrees MUSE ECG T Wave [place] 44 degrees MUSE ECG Diagnosis Normal sinus rhythm MUSE ECG Diagnosis RSR' pattern in V1 and V2 MUSE ECG Diagnosis Otherwise normal ECG MUSE ECG Diagnosis MUSE ECG Diagnosis MUSE ECG Diagnosis Confirmed by Herman Lima ([id number]) on 10/25/2024 1:35:28 PM MUSE ECG 10/25/2024 10:1 2 AM EDT 10/25/2024 1:35 PM EDT us Doris Contreras MD ECG ORDERABLES Final R esult MUSE ECG * [facility] (10/25/2024 9:51 AM EDT) Narrative Doris Contreras MD - 10/25/2024 9:51 AM EDT Doris Contreras MD 10/25/2024 11:00 AM POC Ultrasound - Bedside Performed by: Estuardo Satnos MD Authorized by: Doris Contreras MD Procedure [...] IN CLINIC/BEDSIDE ORDER [facility]OMON Final Result * [facility] (10/25/2024 9:51 AM EDT) [...] cardiac ultrasound The images were Saved in [employer]. The study was technically adequate. Comments: n/a [...] nightly (2100 & 0300), First dose on Thu10/25/24 at [...] 1 dose, On Thu10/26/24 at 0725, Routine New 10/26/2024 1:00 PM EDT 2 g 25 mL/ hr magnesium sulfate IVPB 2 g 2 g, Intravenous, Once, 1 dose, On Thu10/26/24 at 1700, Routine New 10/26/2024 5:20 PM EDT 2 g 25 [...] 8:43 PM EDT 10 mg nystatin (Mycostatin) [id number] UNIT/ML suspension 500,000 Units 500,000 Units (5 [...] dose, On Thu10/25/24 at 1145, STAT New Bag 10/25/2024 12:14 PM EDT 4.5 g 2 20 mL/hr piperacillin-tazobactam (Zosyn) 4.5 g in sodium chloride 0.9% 100 mL IVPB (vial adapter required) 4.5 g, Intravenous, Every 6 hours, 28 doses, First dose on Thu10/25/24 at 1800, Last dose on Thu11/01/24 at 1200, Routine New Bag 10/30/2024 12:00 PM EDT 4.5 g 36.7 mL/hr New Bag 10/30/2024 5:24 AM EDT 4.5 g 36.7 mL/hr New Bag 10/30/2024 12:39 AM EDT 4.5 g 36.7 mL/hr piperacillin-tazobactam (Zosyn) 4.5 g in sodium chloride 0.9% 100 mL IVPB (vial adapter required) 4.5 g, Intravenous, Every 6 hours, 4 doses, First dose (after last modification) on Thu10/30/24 at 1800, Last dose on Thu10/31/24 at 1200, Routine New Bag 10/31/2024 12:46 PM EDT 4.5 g 36.7 mL/hr New Bag 10/31/2024 5:08 AM EDT 4.5 g 36.7 mL/hr New Bag 10/31/2024 12:16 AM EDT 4.5 g 36.7 [...] 10/29/2024 12:11 PM EDT 10 mL Tiotropium Crystal Monohydrate (Spiriva Respimat) 2.5 MCG/ACT inhaler 2 [...] RN)2113 (Given - Provider: Tamara Kumar RN) 0509 (Not Given - Provider: Tamara Kumar RN - Reason: Patient/family refused)1246 (Given - Provider: Lisa Rankin RN) albuterol (Proventil) (2.5 MG/3ML) 0.083% nebulizer solution 2.5 mg 2.5 mg, Nebulization, Every 12 hours, First dose on Thu10/26/24 at 0820, Until Discontinued, Routine 0901 (Given - Provider: Archana Hare)2034 (Given - Provider: Sheron Perez) 0940 (Given - Provider: Archana Hare - Comment: EATING BREAKFAST)2017 (Given - Provider: [...] Routine 0814 (Given - Provider: Flor Pierre RN)215 (Given - Provider: Marion Tate) 0814 (Given - Provider: Flor Pierre RN)211 (Given [...] Pierre RN)1723 (Given - Provider: Flor Pierre RN)215 (Given - Provider: Marion Tate) 0813 (Given - Provider: Flor Pierre RN)1301 (Given - Provider: Flor Pierre RN)172 (Given - Provider: Flor Pierre RN)211 (Given - Provider: Tamara Kumar RN) 0908 (Given - Provider: Lisa Rankin RN)1245 (Given - Provider: Lisa Rankin RN)1701 (Given - Provider: Lisa Rankin RN) insulin glargine-yfgn 100 UNIT/ML injection 25 Units (CANCELED) 25 Units, Subcutaneous, Nightly, First dose (after last modification) on Thu10/29/24 at 2100, Until Discontinued, Routine 2152 (Given - Provider: Marion Tate) 2110 (Given - Provider: Tamara Kumar RN) insulin glargine-yfgn 100 UNIT/ML injection 30 [...] nightly (2100 & 0300), First dose on Thu10/25/24 at 2100, Until Discontinued, Routine 030 (Given - Provider: Abida Ken)2204 (Given - Provider: Marion Tate) 032 (Given - Provider: Marion Tate)2111 (Given - Provider: Tamara Kumar RN) 035 (Given - Provider: Tamara Kumar RN) Insulin Lispro (Admelog, HumaLOG) 100 UNIT/ML injection [...] Provider: Flor Pierre RN)1723 (Given - Provider: lFor Pierre RN) 0907 (Given - Provider: Lisa [...] Discontinued 0830 (Given - Provider: Flor Pierre RN)2154 (Given - Provider: Marion Tate) 08 (Given - Provider: Flor Pierre RN)211 (Given - Provider: Tamara Kumar RN) 0909 (Given - Provider: Lisa Rankin RN) magnesium sulfate IVPB 2 g [...] Routine 0830 (Given - Provider: Flor Pierre RN)220 (Given - Provider: Marion Tate) 0914 (Given - Provider: Flor Pierre RN)2113 (Given - Provider: Tamara Kumar RN) 0909 (Given - Provider: Lisa Rankin, JOSE MARTIN) mometasone-formoterol (Dulera 100) 100-5 MCG/ACT inhaler 2 puff(Linked Group 1) 2 puff, Inhalation, 2 times daily, First dose on Thu10/25/24 at 1340, Until Discontinued 0830 (Given - Provider: Flor Pierre RN)2199 (Given - Provider: Marion Tate) 09 (Given - Provider: Flor Pierre RN)2113 (Given - Provider: Tamara Kumar RN) 0910 (Given - Provider: Lisa Rankin RN) montelukast (Singulair) tablet 10 mg 10 mg, Oral, Nightly, First dose on Thu10/25/24 at 2100, Until Discontinued, Routine 215 (Given - Provider: Marion Tate) 2112 (Given - Provider: Tamara Kumar RN) nystatin (Mycostatin) [id number] UNIT/ML suspension 500,000 Units 500,000 Units (5 [...] RN) 0909 (Given - Provider: Lisa Rankin RN)1246 (Given - Provider: Lisa Rankin RN)1702 (Given - Provider: Lisa Rankin RN) pantoprazole (Protonix) EC tablet 40 mg 40 [...] RN) 0016 (New Bag - Provider: Tamara Kumar RN)0508 (New Bag - Provider: Tamara Kumar RN)1246 (New Bag - Provider: Lisa Rankin RN) rivaroxaban (Xarelto) tablet 20 mg 20 [...] (Given - Provider: Lisa Rankin RN) Tiotropium Crystal Monohydrate (Spiriva Respimat) 2.5 MCG/ACT inhaler 2 [...] rash 2200 (Given - Provider: Marion Tate) 2113 (Given - Provider: Tamara Kumar, RN) melatonin tablet 3 mg 3 mg, Oral, Nightly PRN, Starting on Thu10/25/24 at 1331, Until Thu10/31/24 at 1934, Routine, sleep 215 (Given - Provider: Marion Tate) ondansetron (Zofran) 4 MG/5ML solution 4 mg(Linked Group 4) 4 mg, Oral, Every 6 hours PRN, Starting on Thu10/25/24 at 1331, Until Thu10/31/24 at 1934, Routine, nausea, vomiting 1623 (See Alternative - Provider: Flor Pierre RN) 192 (See Alternative - Provider: Tamara Kumar, RN) ondansetron (Zofran) injection 4 mg(Linked Group 4) 4 mg, Intravenous, Every 6 hours PRN, Starting on Thu10/25/24 at 1331, Until Thu10/31/24 at 1934, Routine, vomiting, nausea 1623 (See Alternative - Provider: Flor Pierre RN) 192 (See Alternative - Provider: Tamara Kumar, RN) ondansetron ODT (Zofran-ODT) disintegrating tablet 4 mg(Linked Group 4) 4 mg, Oral, Every 6 hours PRN, Starting on Thu10/25/24 at 1331, Until Thu10/31/24 at 1934, Routine, nausea, vomiting 1623 (Given - Provider: Flor Pierre, JOSE MARTIN) 192 (Given - Provider: Tamara Kumar, RN) sodium chloride 0.9 % flush 10 mL(Linked Group 2) 10 mL, Intravenous, As needed, Starting on Thu10/25/24 at 1331, Until Thu10/31/24 at 1934, Routine, line care 1211 (Given - Provider: Flor Pierre, JOSE MARTIN) Linked Groups Order Group 1: Tiotropium Crystal Monohydrate (Spiriva Respimat) 2.5 MCG/ACT inhaler 2 [...] PRN, Starting on Thu10/25/24 at 1331, Until 10/31/24 at 1934, Routine, vomiting, nausea Or ondansetron (Zofran) 4 MG/5ML solution 4 mgJump to med 4 mg, Oral, Every 6 hours PRN, Starting on Thu10/25/24 at 1331, Until 10/31/24 at 1934, Routine, nausea, vomiting documented in this encounter Additional Health Concerns Infection Onset Date Last Indicated Resolved Time COVID-19 Rule-Out 10/25/2024 10/25/2024 10/25/2024 12:13 PM EDT Respiratory Rule-Out 10/25/2024 10/25/2024 025 3:07 PM EDT 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, KNOCK OUT HAND Panic 10/26/2024 10/31/2024 Assessment Noted Time PHQ-9 Depression Total Score: 0 09/01/19 3:26 PM EDT A fall risk assessment has been complete d for the patient 10/06/2024 2:29 PM EDT A Body Mass Index follow-up plan has been documented for the patient 10/31/2024 4:09 PM EDT documented as of this encounter Care Teams Associate Professor Of Medicine Relationship Specialty Start Date End Date Laurie Gutierrez MD [address] [place] [id number] PCP - General 12/09/23 Joshua Martínez MD [address] [place] [address] [id number] [place] [address] Consulting Physician Radiation Oncology 09/19/24 Jasmina Smith LPN [employer] [address] TCM Nurse 10/19/24 11/01/24 documented as of this encounter
--- OUTSIDE RECORDS SUMMARY | 2024-10-25 10:03 | XMS_ITS | Encounter Summary ---
Author Organization [facility] Address [address] [place] [address] Care Team Providers Care Sharples Machine Operator Name Role Phone Laurie Gutierrez MD Primary Care Provider [phone] Joshua Martínez MD Unavailable Jasmina Smith LPN Unavailable Unavailable Reason for Referral * Consultation (Routine) - Authorized Specialty Diagnoses / Procedures Referred By Mackenzie t Referred To Contact Family Medicine Diagnoses Pneumonia of right upper lobe due to infectious organism Robert Amin MD [address] [place] [address] Phone: tel: fax: Referral ID Status Reason Start Date Expiration Date V isits Requested Visits Authorized [id number] Authorized 10/31/2024 05/02/2026 1 1 * Home Health (Routine) - Authorized Specialty Diagnoses / Procedures Referred By Mackenzie carreon Referred To Contact Home Health Services Diagnoses Pneumonia of right upper lobe due to infectious organism Robert Amin MD [address] [place] [address] Phone: tel: fax: Referral ID Status Reason Start Date Expiration Date Visits Requested Visits Authorized [id number] Authorized Specialty Services Required 10/27/2024 04/28/2026 999 999 Reason for Visit * Reason Comments Shortness of Breath Weakness - Generalized * Auth/Cert (Routine) Specialty Diagnoses / Procedures Referred By Contac t Referred To Contact Diagnoses Pneumonia of right upper lobe due to infectious organism recurrent pneumonia Robert Amin MD [address] [place] [address] Phone: tel: fax: [facility] A Emergency Department [address] [place] [address] Phone: tel: Referral ID Status Reason Start Date Expiration Date Visits Re quested Visits Authorized [id number] 1 1 Encounter Details Date Type Department Care Team (Late st Contact Info) Description 10/25/2024 10:03 AM EDT - 10/31/2024 5:33 PM EDT Hospital Encounter [facility] Inpatient [address] [place] [address] Doris Contreras MD [address] [place] [address] Robert Amin MD [address] [place] [address] Pneumonia of right upper lobe [...] place to sleep or slept in a residential (including now)? No 11/20/2023 PHQ-9 Answer Date [...] were you homeless or living in a residential (including now)? No 10/14/2024 Humiliation, Afraid, Rape, [...] any time in the past 12 m [facility], were you homeless or living in a residential (including now)? No 10/26/2024 CAGE ASSESSMENT Answer [...] drink first t laurie in the morning (EYE-CIVIL ENGINEERING DESIGNER) to steady your nerves or to get rid of a hangover? 0 10/27/2024 CAGE Questionnaire Score 0 025 Utilities Answer Date Recorded In the past 12 months has [employer], gas, oil, or water [employer] threatened to shut off services in your [...] 2 times a day with meals. 10/31/2024 empagliflozin (Jardiance) 25 MG Take 1 tablet by mouth daily. insulin glargine (Lantus) 100 UNIT/ML injection vial [...] call provider. 15 mL 3 10/31/2024 5 Xarelto 20 MG tablet Take 1 tablet by mouth every evening. 5 dexamethasone (Decadron) 2 MG tablet Take 1 tablet by mouth every 12 hours. 10 tablet 10/18/2024 5 gabapentin (Neurontin) 600 MG tablet Take [...] name and Address: Laurie Gutierrez MD [address] [facility] [address] Referring provider name and address: Vonnie Barksdale PA [address] [place] [address] Chief Concern, Brief History of Present Illness, [...] Breztri Aerosphere 160-9-4.8 MCG/ACT aerosol Generic drug: Aryamjp-Sesrkhiqkqo-Qdwextddkm Inhale 2 puffs 2 (two) times a [...] meals per correction scale as follows: blood [id number] use 2 units, 200-249 use 4 units, [...] Your Medications These medications were sent to [facility] - [place], [place] - [address] [facility] [id number] Alum & Mag hydroxide, Zinc Oxide, Cholestyramine [...] RAD ONC 21 PLAT CH RO RADONC HALFWAY Vasquez 11/02/2024 11:15 AM CH [facility] RAD ONC 21 PLAT CH RO RADONC HALFWAY Vasquez 11/04/2024 11:15 AM CH [facility] RAD ONC 21 PLAT CH RO RADONC HALFWAY Vasquez 11/07/2024 12:45 PM CH [facility] RAD ONC 21 PLAT CH RO RADONC HALFWAY Vasquez 11/08/2024 11:00 AM HNR[facility] RN [facility] 11/08/2024 11:20 AM Satnam Colvin MD [facility] 11/08/2024 1:30 PM Zeinab August Sosa DO [facility] 11/08/2024 2:00 PM CH [facility] 1 INFUSION TREATMENT [id number] [facility] 11/09/2024 3:00 PM CH [facility] 2 INFUSION TREATMENT [id number] [facility] 11/10/2024 3:00 PM CH [facility] 1 INFUSION TREATMENT [id number] [facility] 01/19/2025 9:30 AM GS MR 2 MRIGSH [facility] 01/19/2025 10:45 AM Abhilash Bangura MD [facility] 03/08/2025 1:00 PM Teresita Oconnell MD [facility] Heart I Test Results Pending At [...] alert. Discharge Disposition/Condition Disposition: Other (specify) [facility] Condition: Stable (s/sx potential problems absent or [...] Note Teresa Urbina 63 y.o. female CSN: [id number] Admission: 10/25/2024 10:03 AM Primary Problem: Pneumonia of right upper lobe due to infectious organism Primary Second Cook And Baker: Primary Caregiver: Self Assistance Available at Discharge: Family/Second Cook And Baker(s) Readiness Assessed to care for patient at [...] Comments: Pt will DC to the [facility] this date. Pt was accepted to go to the [facility] until 11/10/24. Pt has transportation upon DC. No further SW concerns identified at this time. SW will monitor pt's progress and will follow up with DC planning and needs as appropriate. NAVEED Kirkland, AIRCONDITIONING DRAFTING OFFICER Social Work Senior Department of Case Management [facility] * Progress Notes - Genia Grissom - 10/31/2024 1:40 PM EDT Case Management Adult Progress Note Teresa Urbina 63 y.o. female CSN: [id number] Admission: 10/25/2024 10:03 AM Primary Problem: Pneumonia of right upper lobe due to infectious organism Anticipated Discharge Date: 48 hours Additional Comments: According to MD's pt is MR to DC this date. Pt requested to go to the [facility] upon DC to complete her radiation and chemo. SW sent referral to the [facility] via email. [facility] stated that theywould not have a bed available til potentially Thursday. Pt stated her family has packed her houseup. Pt requesting to stay inpatient till she can DC to the [facility]. MD's not ready to DC pt. Update: [facility] can accept the pt on 11/02/24 through 11/10/24. Pt will DC to [facility] on 11/02/24. NAVEED Kirkland, AIRCONDITIONING DRAFTING OFFICER Social Work Senior Department of Case Management [facility] * Progress Notes - Felipe [...] Value Units Date/Time Blood Culture (Aerobic/Anaerobet Set) [[id number]] Collected: 10/26/24 0303 Order Status: Completed Specimen: Blood from Hand, Left Updated: 10/27/24 0502 Culture No growth at day 1 Blood Culture (Aerobic/Anaerobet Set) [[id number]] Collected: 10/25/24 2110 Order Status: Completed Specimen: Blood, Venous Updated: 10/26/24 2202 Culture No growth at day 1 Respiratory Culture and Gram Stain [[id number]] (Abnormal) Collected: 10/26/2437 Order Status: Completed Specimen: [...] clusters Streptococcus pneumoniae and Legionella Urinary Antigen [[id number]] (Normal) Collected: 10/26/24536 Order Status: Completed Specimen: Urine, Clean Catch Updated: 10/26/24 0743 Legionella pneumophila serogroup 1 Antigen Result (Urine) Negative Streptococcus pneumoniae Antigen Result (Urine) Negative Methicillin Resistant Staphylococcus aureus (MRSA) by PCR [[id number]] (Normal) Collected: 10/25/24 1832 Order Status: Completed Specimen: Swab from Nares Updated: 10/25/24 2041 Methicillin Resistant Staphylococcus aureus (MRSA) by PCR Not Detected Nasopharyngeal Respiratory Panel [[id number]] (Normal) Collected: 10/25/24 1042 Order Status: Completed Specimen: Swab from Nasopharynx Updated: 10/25/24 1507 Nasopharyngeal Respiratory PCR Interpretation Not Detected for all analytes SARS CoV-2/COVID-19 by PCR - Rapid [[id number]] (Normal) Collected: 10/25/24 1042 Order Status: Completed [...] sputum if available. Plan to go to [facility] to finish radiation treatments. Patient amenable to going home to pack then returning to [facility]. Will increase insulin today due to persistent [...] therapy. Participants in Care Family/Caregiver Present: No Machine Rug Cleaner: Not Applicable Presentation Oxygen Oxygen Therapy: None [...] safety, along with improving upright activity tolerance. ASSOCIATE SCHOOL PSYCHOLOGIST provided cues to promote maximal independence and safety. Refer to sections below for further details. Transfers Transfer Interventions: Patient performed 3 reps of sit to/from stand from different surface levels. Provided cues for proper hand placement, BLE set-up, forward trunk leans to initiate coming to stand, and safe descent to sit. Transfer Exam: Sit to stand Level of [place]: Stand-by assist Physical/Nonphysical Assist: Verbal Cues, Minimal cues Transfer Exam: Stand to Sit Level of [place]: Stand-by assist Physical/Nonphysical Assist: Verbal Cues, Minimal [...] to perform TID. Access Code: [email or web address] URL: [email or web address] Date: 10/31/2024 Prepared by: Vishnu Exercises - [...] Value Units Date/Time Blood Culture (Aerobic/Anaerobet Set) [[id number]] Collected: 10/26/24 0303 Order Status: Completed Specimen: Blood from Hand, Left Updated: 10/27/24 0502 Culture No growth at day 1 Blood Culture (Aerobic/Anaerobet Set) [[id number]] Collected: 10/25/24 2110 Order Status: Completed Specimen: Blood, Venous Updated: 10/26/24 220 Culture No growth at day 1 Respiratory Culture and Gram Stain [[id number]] (Abnormal) Collected: 10/26/24 0537 Order Status: Completed [...] clusters Streptococcus pneumoniae and Legionella Urinary Antigen [[id number]] (Normal) Collected: 10/26/2437 Order Status: Completed Specimen: Urine, Clean Catch Updated: 10/26/24 0743 Legionella pneumophila serogroup 1 Antigen Result (Urine) Negative Streptococcus pneumoniae Antigen Result (Urine) Negative Methicillin Resistant Staphylococcus aureus (MRSA) by PCR [[id number]] (Normal) Collected: 10/25/24 1832 Order Status: Completed Specimen: Swab from Nares Updated: 10/25/24 2041 Methicillin Resistant Staphylococcus aureus (MRSA) by PCR Not Detected Nasopharyngeal Respiratory Panel [[id number]] (Normal) Collected: 10/25/24 1042 Order Status: Completed Specimen: Swab from Nasopharynx Updated: 10/25/24 1507 Nasopharyngeal Respiratory PCR Interpretation Not Detected for all analytes SARS CoV-2/COVID-19 by PCR - Rapid [[id number]] (Normal) Collected: 10/25/24 1042 Order Status: Completed [...] sputum if available. Plan to go to [facility] to finish radiation treatments. Patient amenable to going home to pack then returning to [facility]. Will increase insulin today due to persistent [...] Note Teresa Urbina 63 y.o. female CSN: [id number] Admission: 10/25/2024 10:03 AM Primary Problem: Pneumonia of right upper lobe due to infectious organism Weekend SW was notified that patient may be able to dc Thursday or Thursday and she would like to stay at the [facility]. JENSEN faxed over [facility] referral form to [phone]. Addendum: JENSEN was notified that referral form for [facility] must be completed on-line and include specific check in and check out dates. JENSEN will send again at ok. Lisa Edwards Social Work [phone] * Progress Notes - Darren Moon MD - 10/29/2024 10:54 AM EDT Images from the original note were not included. Hospital Medicine Progress Note Subjective Subjective/Night Patient examined at bedside. Continues to feel well with significant improvement in breathing and weakness. Asked about pneumonia vaccines. Has not had any paperwork regarding the [facility]. Denies any other concerns this morning. Objective [...] Value Units Date/Time Blood Culture (Aerobic/Anaerobet Set) [[id number]] Collected: 10/26/24 0303 Order Status: Completed Specimen: Blood from Hand, Left Updated: 10/27/24 0502 Culture No growth at day 1 Blood Culture (Aerobic/Anaerobet Set) [[id number]] Collected: 10/25/24 2110 Order Status: Completed Specimen: Blood, Venous Updated: 10/26/24 2202 Culture No growth at day 1 Respiratory Culture and Gram Stain [[id number]] (Abnormal) Collected: 10/26/24 0537 Order Status: Completed [...] clusters Streptococcus pneumoniae and Legionella Urinary Antigen [[id number]] (Normal) Collected: 10/26/24 0537 Order Status: Completed Specimen: Urine, Clean Catch Updated: 10/26/24 0743 Legionella pneumophila serogroup 1 Antigen Result (Urine) Negative Streptococcus pneumoniae Antigen Result (Urine) Negative Methicillin Resistant Staphylococcus aureus (MRSA) by PCR [[id number]] (Normal) Collected: 10/25/24 1832 Order Status: Completed Specimen: Swab from Nares Updated: 10/25/24 2041 Methicillin Resistant Staphylococcus aureus (MRSA) by PCR Not Detected Nasopharyngeal Respiratory Panel [[id number]] (Normal) Collected: 10/25/24 1042 Order Status: Completed Specimen: Swab from Nasopharynx Updated: 10/25/24 1507 Nasopharyngeal Respiratory PCR Interpretation Not Detected for all analytes SARS CoV-2/COVID-19 by PCR - Rapid [[id number]] (Normal) Collected: 10/25/24 1042 Order Status: Completed [...] sputum if available. Plan to go to [facility] to finish radiation treatments. Patient amenable to going home to pack then returning to [facility]. Will increase insulin today due to persistent [...] Value Units Date/Time Blood Culture (Aerobic/Anaerobet Set) [[id number]] Collected: 10/26/24 0303 Order Status: Completed Specimen: Blood from Hand, Left Updated: 10/27/24 0502 Culture No growth at day 1 Blood Culture (Aerobic/Anaerobet Set) [[id number]] Collected: 10/25/24 2110 Order Status: Completed Specimen: Blood, Venous Updated: 10/26/24 2202 Culture No growth at day 1 Respiratory Culture and Gram Stain [[id number]] (Abnormal) Collected: 10/26/24 0537 Order Status: Completed [...] clusters Streptococcus pneumoniae and Legionella Urinary Antigen [[id number]] (Normal) Collected: 10/26/2437 Order Status: Completed Specimen: Urine, Clean Catch Updated: 10/26/24 0743 Legionella pneumophila serogroup 1 Antigen Result (Urine) Negative Streptococcus pneumoniae Antigen Result (Urine) Negative Methicillin Resistant Staphylococcus aureus (MRSA) by PCR [[id number]] (Normal) Collected: 10/25/24 1832 Order Status: Completed Specimen: Swab from Nares Updated: 10/25/24 2041 Methicillin Resistant Staphylococcus aureus (MRSA) by PCR Not Detected Nasopharyngeal Respiratory Panel [[id number]] (Normal) Collected: 10/25/24 1042 Order Status: Completed Specimen: Swab from Nasopharynx Updated: 10/25/24 1507 Nasopharyngeal Respiratory PCR Interpretation Not Detected for all analytes SARS CoV-2/COVID-19 by PCR - Rapid [[id number]] (Normal) Collected: 10/25/24 1042 Order Status: Completed [...] sputum if available. Plan to go to [facility] to finish radiation treatments. Patient amenable to going home to pack then returning to [facility]. #Acute on chronic hypoxic respiratory failure 2/2 [...] Note Teresa Urbina 63 y.o. female CSN: [id number] Admission: 10/25/2024 10:03 AM Primary Problem: Pneumonia [...] planning and needs as appropriate. Genia Grissom, NURSERY LABORER, AIRCONDITIONING DRAFTING OFFICER Social Work Senior Department of Case Management [facility] * Progress Notes - Chalo [...] from the original note were not included. [facility] Medicine Progress Note Subjective Subjective/Night Patient [...] Value Units Date/Time Blood Culture (Aerobic/Anaerobet Set) [[id number]] Collected: 10/26/24 0303 Order Status: Completed Specimen: Blood from Hand, Left Updated: 10/27/24 0502 Culture No growth at day 1 Blood Culture (Aerobic/Anaerobet Set) [[id number]] Collected: 10/25/24 2110 Order Status: Completed Specimen: Blood, Venous Updated: 10/26/24 2202 Culture No growth at day 1 Respiratory Culture and Gram Stain [[id number]] (Abnormal) Collected: 10/26/24 0537 Order Status: Completed [...] clusters Streptococcus pneumoniae and Legionella Urinary Antigen [[id number]] (Normal) Collected: 10/26/24 0537 Order Status: Completed Specimen: Urine, Clean Catch Updated: 10/26/24 0743 Legionella pneumophila serogroup 1 Antigen Result (Urine) Negative Streptococcus pneumoniae Antigen Result (Urine) Negative Methicillin Resistant Staphylococcus aureus (MRSA) by PCR [[id number]] (Normal) Collected: 10/25/24 1832 Order Status: Completed Specimen: Swab from Nares Updated: 10/25/24 2041 Methicillin Resistant Staphylococcus aureus (MRSA) by PCR Not Detected Nasopharyngeal Respiratory Panel [[id number]] (Normal) Collected: 10/25/24 1042 Order Status: Completed Specimen: Swab from Nasopharynx Updated: 10/25/24 1507 Nasopharyngeal Respiratory PCR Interpretation Not Detected for all analytes SARS CoV-2/COVID-19 by PCR - Rapid [[id number]] (Normal) Collected: 10/25/24 1042 Order Status: Completed [...] Case Management Adult Initial Progress Note Teresa Urbian 63 y.o. female CSN: [id number] Admission: 10/25/2024 10:03 AM Primary Problem: Pneumonia of right upper lobe due to infectious organism Cps Team Lead reviewed chart and spoke with the patient at bedside to complete this Initial Case Management Assessment. PCP: Laurie Gutierrez MD Emergency Contact: Extended Emergency Contact Information Primary Emergency Contact: Zachary Urbina Mobile Relation: Son Preferred language: Nepali Machine Rug Cleaner needed? No Secondary Emergency Contact: Aurora Urbina Mobile Relation: Daughter Preferred language: Nepali Machine Rug Cleaner needed? No Insurance: Primary Visit Coverage Payer Plan Sponsor Code Group Number Group Name [employer] [id number] Primary Visit Coverage Subscriber Subscriber ID Subscriber Name Subscriber SSN Subscriber Address [id number] TEERSA URBINA [id number] [place] [address] Patient information: Primary Caregiver: Self Support System: Immediate family Daily Living Activities: Functional Status: Minimum assistance Living Arrangements: Alone Type of Residence: Private residence, Single Level (4 stairs to enter the front room, 3 stairs to enter the side door, and 2 stairs to enter the back porch) [address] [place] [address] Smoker in the Home?: N/A Current DME: Equipment Currently Used at Home: walker, rolling, oxygen (2L of O2 at home) Current DME Provider: [facility] Income Information: Income Source: Unemployed (recieves husbands social security) Current Resources Utilized: Food [place] Housing Circumstances-Z Codes: Housing Circumstances (select all that apply): Low Income (101-300% Federal Poverty Guidlines) - Z596 Anticipated Discharge Date: 72 hours Patient's Discharge Goal: Home Assistance Available at Discharge: Family Discharge Transport: Family Follow Up Transport: Family Home Health / Home Infusion / Outpatient Dialysis Services: Current DME Provider: [facility] Living Will/Advance Directive/Power of Hydraulic Assembler /Guardian: Pt states that Zachary is her [...] Cage questionnaire guilty: 0 Cage questionnaire eye opener tender: 0 Cage Overall score: 0 Housing Stability: [...] Social Connections: Low Risk (05/26/2023) Received from [employer] Family and Community Support Help with Day [...] within 72 hrs. Pt lives alone at [address] [place] [id number]. The home is one level with 4 stairs to enter the front room, 3 stairs to enter the side door, and 2 stairs to enter the back porch. Pt requires minimum assistance performing ADLS at home, states her sister watches her shower so she does not fall. Pt states she uses a RW and 2L ofO2 at home through [employer]. Pt POA is Zachary Urbina, son but no papers on file. Pt states she has assistance from her family upon DC if needed. Pt confirmed her PCP in chart. Pt states her family will provide her with transportation upon DC. Pt was act [facility] for rehab in September. Pt meets FPG 300%. Pt preferred pharmacy is [facility]. No further SW concerns identified at this time. SW will monitor pt's progress and will follow up with DC planning and needs as appropriate. Genia Grissom, NURSERY LABORER, AIRCONDITIONING DRAFTING OFFICER Social Work Senior Department of Case Management - [facility] * Hospital Course - Felipe Sanchez [...] mg, Subcutaneous, Once, 0 of 3 cycles Ahupuohxjsxe-Iotvdhrlvwcjx-lwrh (Tecentriq Hybreza) [id number] MG-UT/15ML injection solution 1,875 mg, 1,875 mg, [...] Family History[3] 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 Patient lives in [place] with Tobacco Use History[4] 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 Substance [...] assisted with formulation ofthe plan as described. Pgae Cantu DO Internal Medicine, PGY-3 [1] Past [...] SURGERY TUBAL LIGATION N/A Tubal Ligation from [employer] TYMPANOSTOMY TUBE PLACEMENT N/A Ear Surgery Eustachian Tube from [facility] [3] Family History Problem Relation Name Age [...] Oral, Nightly PRN, Sasha Nuñez DO Tiotropium [place] Monohydrate (Spiriva Respimat) 2.5 MCG/ACT inhaler 2 puff, 2 puff, Inhalation, Daily, 2 puff at 10/26/24 0820 AND mometasone-formoterol (Dulera 100) 100-5 MCG/ACT inhaler 2 puff, 2 puff, Inhalation, BID, Sasha Nuñez, DO, 2 puff at 10/26/24 0820 montelukast (Singulair) tablet 10 mg, 10 mg, Oral, Nightly, Sasha Nuñez, DO, 10 mg at 10/25/24 210 nystatin (Mycostatin) [id number] UNIT/ML suspension 500,000 Units, 5 mL, Swish [...] MINI PEN NEEDLES 31G X 5 MM [facility], , Disp: , Rfl: benzonatate (Tessalon) 100 MG capsule, Take 1 capsule by mouth 3 times a day as needed for cough. Do not crush or chew., Disp: 20 capsule, Rfl: 0 Blood Glucose Monitoring Suppl (Syncano Verio Flex System) w/Device kit, , Disp: , Rfl: Sojttrt-Skamudnpgid-Udiporxzpw (Breztri Aerosphere) 160-9-4.8 MCG/ACT aerosol, Inhale 2 [...] fold daily., Disp: , Rfl: Continuous Glucose Theater Company Producer (Dexcom G7 Theater Company Producer) device, USE TO MEASURE BLOOD SUGAR DIRECTED, [...] Can be adjusted per the MD at [facility], Disp: 10 mL, Rfl: 12 Lantus [...] mouth nightly., Disp: , Rfl: nystatin (Mycostatin) [id number] UNIT/ML suspension, Swish and swallow 5 mL [...] quick Participants in Care Family/Caregiver Present: No Machine Rug Cleaner: Not Applicable Presentation Oxygen Therapy: Supplemental oxygen [...] admission Level of Mobility: Ambulatory- community Mobility [place]: Independent gait with device History of Falls: [...] Mobility Bed Mobility Exam: Rolling/Turning Level of [place]: Stand-by assist Physical/Nonphysical Assist: Verbal Cues, Minimal cues Bed Mobility Exam: Scooting/Bridging Level of [place]: Stand-by assist Physical/Nonphysical Assist: Verbal Cues, Minimal cues Bed Mobility Exam: Supine to Sit Level of [place]: Stand-by assist Physical/Nonphysical Assist: Supervision Assistive Device: Bed rails Bed Mobility Exam: Sit to Supine Level of [place]: Stand-by assist Physical/Nonphysical Assist: Verbal Cues, Minimal cues Assistive Device: Bed rails Transfers Transfer Exam: Sit to stand Level of [place]: Stand-by assist (x 2 from EOB; x 1 to toilet) Physical/Nonphysical Assist: Verbal Cues, Minimal cues Assistive Device: Walker, rolling Transfer Exam: Stand to Sit Level of [place]: Stand-by assist (x 2 to EOB; x 1 to toilet) Physical/Nonphysical Assist: Verbal Cues, Minimal cues Assistive Device: Walker, rolling Toilet Transfer Level of [place]: Stand-by assist Physical/Nonphysical Assist: Verbal Cues, Minimal [...] exertion and daily schedule modification. Standardized Assessments [facility] 6-Click Daily Activities Help from Other: Don/Doff Regular Lower Body Clothings: None Help From Other: Bathing: Little Help From Other: Toileting: Little Help From Other: Don/Doff Upper Body Clothings: None Help From Other: Grooming: None Help From Other: Eating Meals: None [facility] 6 Click - Daily Activities Score: 22 [...] session. Participants in Care Family/Caregiver Present: No Machine Rug Cleaner: Not Applicable Presentation Oxygen Therapy: Supplemental oxygen [...] admission Level of Mobility: Ambulatory- community Mobility [place]: Independent gait with device History of Falls: No ADL Performance: Independent Patient/Family Goals Return home at [facility]. Objective Pain Pt denies being in [...] fatigue. Bed Mobility Exam: Rolling/Turning Level of [place]: Stand-by assist Physical/Nonphysical Assist: Verbal Cues, Minimal cues Bed Mobility Exam: Scooting/Bridging Level of [place]: Stand-by assist Physical/Nonphysical Assist: Verbal Cues, Minimal cues Bed Mobility Exam: Supine to Sit Level of [place]: Stand-by assist Physical/Nonphysical Assist: Supervision Bed Mobility Exam: Sit to Supine Level of [place]: Stand-by assist Physical/Nonphysical Assist: Verbal Cues, Minimal cues Transfers Transfer Interventions: Pt given verbal cues to push up from the bed to assume standing position and to reach back for the bed prior to sitting down to decrease fall risk. Transfer Exam: Sit to stand Level of [place]: Stand-by assist (x 2 from EOB; x 1 to toilet) Physical/Nonphysical Assist: Verbal Cues, Minimal cues Assistive Device: Walker, rolling Transfer Exam: Stand to Sit Level of [place]: Stand-by assist (x 2 to EOB; x 1 to toilet) Physical/Nonphysical Assist: Verbal Cues, Minimal cues Assistive Device: Walker, rolling Toilet Transfer Level of [place]: Stand-by assist Physical/Nonphysical Assist: Verbal Cues, Minimal [...] CGA. Standardized Assessments Standardized Assessments Standardized Assessments: [facility] 6-Clicks Mobility Assessment [facility] 6-Clicks Mobility Assessment Difficulty patient has [...] 3-5 steps with a railing?: A little [facility] 6-Clicks Mobility Assessment Total : 23 [...] Moon MD Internal Medicine, PGY-1 Attending: Dr. mAin Cosigned by Robert Amin MD at 10/27/2024 [...] 10/25/2024 4:15 PM EDTAssociated Order(s): Consult to [facility] Images from the original note were not included. [facility] Medicine History & Physical Consult to [facility] Consult performed by: Darren Moon MD [...] recent primary physician note, and most recent tax specialist note. Past Medical History Past Medical [...] crush or chew. Blood Glucose Monitoring Suppl (Syncano Verio Flex System) w/Device kit Avslbcj-Aebrbfqgthm-Wifzyjgmls (Breztri Aerosphere) 160-9-4.8 MCG/ACT aerosol 2 puffs, 2 times daily Calcium Carb-Cholecalciferol 600-10 MG-MCG tablet 600 mg, Daily calcium carbonate (TUMS) 500 mg, 4 times daily PRN cetirizine (ZYRTEC) 10 mg, Daily ciclopirox (Penlac) 8 % solution Apply over affected nail fold daily. Continuous Glucose [employer] Producer (MOBITRAC G7 [employer] Producer) device USE TO MEASURE BLOOD SUGAR DIRECTED Continuous Glucose Sensor (Spatial [employer] G6 Sensor) misc USE DIRECTED TO MEASURE [...] meals, Can be adjustedper the MD at [facility] Lantus SoloStar 100 UNIT/ML injection pen [...] SURGERY TUBAL LIGATION N/A Tubal Ligation from [employer] TYMPANOSTOMY TUBE PLACEMENT N/A Ear Surgery Eustachian Tube from [employer] [3] Family History Problem Relation Name Age [...] Ordered ESTUARDO SANTOS 10/25/24 1149 Consult to [facility] Once Specialty: Internal Medicine Provider: (Not [...] VARGAS ESTUARDO Lenka 10/25/24 1016 Once Canceled VARGAS ESTUARDO Len[place] 10/25/24 1016 CBC w/diff STAT [...] Normal Ventricular Rate 88 Atrial Rate 88 NM Interval 130 QRSD Interval 78 QT Interval 350 QTC Interval 423 P Spencer 71 R Spencer 17 T Wave Spencer 44 Diagnosis Normal sinus rhythm Diagnosis Normal [...] SURGERY TUBAL LIGATION N/A Tubal Ligation from [employer] TYMPANOSTOMY TUBE PLACEMENT N/A Ear Surgery Eustachian Tube from [employer] [3] Family History Problem Relation Name Age [...] [facility] [address] [facility]nd [place] [phone] 11/29/2024 11:00 AM EDT Office Visit [facility] [address] [facility], [address]nd [place] [phone] Satnam Colvin MD [address] [facility] [address] [place] [address] 11/29/2024 12:30 PM EDT Appointment [facility] [address] [place] [phone] 11/30/2024 1:30 PM EDT Appointment [facility] [address] [place] [phone] 12/01/2024 2:00 PM EDT Appointment [facility] [address] [place] [phone] 12/06/2024 11:40 AM EDT Appointment [facility]iation [address] [id number] [place] [phone] Haven Blum, DISPLAY DIRECTOR [address] [facility] [id number] [place] [phone] 01/19/2025 9:30 AM EDT Appointment [facility] Radiology [address], [address]st [place] [address] 01/19/2025 10:45 AM EDT Office Visit [place] [facility] [address], [address] [place] [address] Abhilash Bangura MD [address] [place] [phone] 03/08/2025 1:00 PM EDT Office Visit [facility] [address] [place] [address] Teresita Oconnell MD [address] [place] [address] Scheduled Referrals Name Type Priority Associated Diagnoses Order Schedule Discharge Ambulatory referral to [facility] Health Outpatient Referral Routine Pneumonia of [...] ECG ADULT STAT 10/25/2024 10:12 AM EDT [facility] ED POCUS PROCDOC Routine 10/25/2024 9:51 AM EDT [facility] ED POCUS PROCDOC Routine 10/25/2024 9:51 AM EDT documented in this encounter Results * (ABNORMAL) POCT glucose meter (10/31/2024 4:36 PM EDT) [facility] POCT Glucose 110(H) 74 - 99 mg/dL 10/31/2024 4:38 PM EDT [facility] Comment:Accuracy of a [...] 10/31/2024 4:38 PM EDT [facility] Equity Sales Assistant ID Maryanne Raines 10/31/2024 4:38 PM EDT [facility] Device ID [id number] 10/31/2024 4:38 PM EDT [facility] Specimen Type POC Capillary 10/31/2024 4:38 PM EDT [facility] Blood Capillary blood specimen / Unknown 10/31/2024 4:36 PM EDT 10/31/2024 4:38 PM EDT us Robert Amin MD LAB POINT OF CARE TE ST DOCKED DEVICE UNSOLICITED RESULTS Final Result Performing Organization Address City/[facility] Co de Phone Number [facility] [address] [place] [address] * (ABNORMAL) POCT glucose meter (10/31/2024 11:24 [...] 10/31/2024 11:25 AM EDT [facility] Equity Sales Assistant ID Maryanne Raines 10/31/2024 11:25 AM EDT [facility]ARE LAB Device ID [id number] 10/31/2024 11:25 AM EDT [facility] Specimen Type POC Capillary 10/31/2024 11:25 AM EDT [facility] Blood Capillary blood specimen / Unknown 10/31/2024 11:24 AM EDT 10/31/2024 11:25 AM EDT us Robert Amin MD LAB POINT OF CARE TE ST DOCKED DEVICE UNSOLICITED RESULTS Final Result Performing Organization Address City/[facility]/ZIP Co de Phone Number [facility] [address] [place] [address] * Wilbur auris Surveillance by PCR (10/31/2024 10:43 AM EDT) Pathologist [facility] Wilbur auris PCR Result Not Detected Not Detected 11/01/2024 1:30 PM EDT [facility] Swab (Axilla and Groin) Non-blood Collection / Unknown 10/31/2024 10:43 AM EDT 10/31/2024 11:27 AM EDT Narrative [facility] - 11/01/2024 1:30 PM EDT This PCR assay was developed and its performance characteristics determined by [facility] as appropriate for clinical purposes. This assay has not been cleared or approved by the FDA, but is performed in a CLIA regulated laboratory that is qualified to perform high-complexity testing. us Robert Amin MD LAB MICROBIOLOGY - GENERAL ORD ERABLES Final Result [facility] [address] [place] [address] * (ABNORMAL) POCT glucose meter (10/31/2024 7:37 AM EDT) Pathologist [facility] POCT Glucose 238(H) 74 - 99 mg/dL [...] 10/31/2024 7:38 AM EDT [facility] Equity Sales Assistant ID Maryanne Raines 10/31/2024 7:38 AM EDT [facility] Device ID [id number] 10/31/2024 7:38 AM EDT [facility] Specimen Type POC Capillary 10/31/2024 7:38 AM EDT [facility] Blood Capillary blood specimen / Unknown 10/31/2024 7:37 AM EDT 10/31/2024 7:38 AM EDT us Robert Amin MD LAB POINT OF CARE TE ST DOCKED DEVICE UNSOLICITED RESULTS Final Result [facility] [address] [place] [address] * (ABNORMAL) POCT glucose meter (10/31/2024 3:49 AM EDT) [facility] POCT Glucose 304(H) 74 - 99 mg/dL 10/31/2024 3:50 AM EDT [facility] Comment:Accuracy of [...] for testing. Comment 10/31/2024 3:50 AM EDT [facility] Equity Sales Assistant ID Amanda Berman 3:50 AM EDT [facility] Device ID [id number] 10/31/2024 3:50 AM EDT [facility] Specimen Type POC Capillary 10/31/2024 3:50 AM EDT [facility] Blood Capillary blood specimen / Unknown 10/31/2024 3:49 AM EDT 10/31/2024 3:50 AM EDT Robert Amin MD LAB POINT OF CARE TE ST DOCKED DEVICE UNSOLICITED RESULTS Final Result [facility] [address] [place] [address] * (ABNORMAL) Morphology (10/31/2024 12:21 AM EDT) [facility] RBC Fragments/Schist ocytes Slight(A) (none) LAB HEMATOLOGY METHOD 10/31/2024 2:12 AM EDT [facility] Polychromasia Slight LAB HEMATOLOGY METHOD 10/31/2024 2:12 AM EDT [facility] RBC Morphology Slide Reviewed LAB HEMATOLOGY METHOD 10/31/2024 2:12 AM EDT [facility] Teardrop Cells Present LAB HEMATOLOGY METHOD 10/31/2024 2:12 AM EDT [facility] Platelet Estimate Platelet smear estimate consistent with automated count LAB HEMATOLOGY METHOD 10/31/2024 2:12 AM EDT [facility] Blood Venous blood specimen / Unknown Venipuncture / Unknown 10/31/2024 12:21 AM EDT 10/31/2024 12:55 AM EDT us Robert Amin MD LAB BLOOD ORDERABLES Final Res ult [facility] [address] [place] [address] * (ABNORMAL) Manual Differential (10/31/2024 12:21 AM EDT) Blasts % 0 % LAB HEMATOLOGY METHOD 10/31/2024 2:12 AM EDT [facility] Promyelocytes % 0 % LAB HEMATOLOGY METHOD 10/31/2024 2:12 AM EDT [facility] Myelocytes % 3 % LAB HEMATOLOGY METHOD 10/31/2024 2:12 AM EDT [facility] Metamyelocytes % 3 % LAB HEMATOLOGY METHOD 10/31/2024 2:12 AM EDT [facility] Neutrophils % 84 % LAB HEMATOLOGY METHOD 10/31/2024 2:12 AM EDT [facility] Lymphocytes % 6 % LAB HEMATOLOGY METHOD 10/31/2024 2:12 AM EDT [facility] Reactive Lymphocytes % 0 % LAB HEMATOLOGY METHOD 10/31/2024 2:12 AM EDT [facility] Monocytes % 3 % LAB HEMATOLOGY METHOD 10/31/2024 2:12 AM EDT [facility] Eosinophils % 1 % LAB HEMATOLOGY METHOD 10/31/2024 2:12 AM EDT [facility] Basophils % 0 % LAB HEMATOLOGY METHOD 10/31/2024 2:12 AM EDT [facility] Blasts Absolute 0.00 10*3/UL LAB HEMATOLOGY METHOD 10/31/2024 2:12 AM EDT [facility] Promyelocytes Absolute 0.00 10*3/uL LAB HEMATOLOGY METHOD 10/31/2024 2:12 AM EDT [facility] Myelocytes Absolute 0.20 10*3/uL LAB HEMATOLOGY METHOD 10/31/2024 2:12 AM EDT [facility] Metamyelocytes Absolute 0.20 10*3/uL LAB HEMATOLOGY METHOD 10/31/2024 2:12 AM EDT [facility] Neutrophils Absolute 5.62 1.60 - 6.10 10*3/uL LAB HEMATOLOGY METHOD 10/31/2024 2:12 AM EDT [facility] Lymphocytes Absolute 0.40(L) 1.20 - 3.90 10*3/uL LAB HEMATOLOGY METHOD 10/31/2024 2:12 AM EDT [facility] Reactive Lymphocytes Absolute 0.00 10*3/uL LAB HEMATOLOGY METHOD 10/31/2024 2:12 AM EDT [facility] Monocytes Absolute 0.20(L) 0.30 - 0.90 10*3/uL LAB HEMATOLOGY METHOD 10/31/2024 2:12 AM EDT [facility] Eosinophils Absolute 0.07 0.00 - 0.50 10*3/uL LAB HEMATOLOGY METHOD 10/31/2024 2:12 AM EDT [facility] Basophils Absolute 0.00 0.00 - 0.10 10*3/uL LAB HEMATOLOGY METHOD 10/31/2024 2:12 AM EDT [facility] Blood Venous blood specimen / Unknown Venipuncture / Unknown 10/31/2024 12:21 AM EDT 10/31/2024 12:55 AM EDT us Robert Amin MD LAB BLOOD ORDERABLES Final Res ult [facility] [address] [place] [address] * (ABNORMAL) CBC and Differential (10/31/2024 12:21 AM EDT) WBC Count 6.69 3.70 - 10.30 10*3/uL LAB HEMATOLOGY METHOD 10/31/2024 2:13 AM EDT [facility] RBC Count 2.34(L) 3.90 - 5.20 10*6/uL LAB HEMATOLOGY METHOD 10/31/2024 2:13 AM EDT [facility] HGB 7.1(L) 11.2 - 15.7 g/dL LAB HEMATOLOGY METHOD 10/31/2024 2:13 AM EDT [facility] HCT 23.9(L) 34.0 - 45.0 % LAB HEMATOLOGY METHOD 10/31/2024 2:13 AM EDT [facility] Platelet Count 302 155 - 369 10*3/uL LAB HEMATOLOGY METHOD 10/31/2024 2:13 AM EDT [facility] MCV 102(H) 79 - 98 fL LAB HEMATOLOGY METHOD 10/31/2024 2:13 AM EDT [facility] Comment:Results inconsistent with previous lab findings. MCH 30.3 26.0 - 32.0 pg LAB HEMATOLOGY METHOD 10/31/2024 2:13 AM EDT [facility] MCHC 29.7(L) 30.7 - 35.5 g/dL LAB HEMATOLOGY METHOD 10/31/2024 2:13 AM EDT [facility] RDW 17.6(H) 11.5 - 14.5 % LAB HEMATOLOGY METHOD 10/31/2024 2:13 AM EDT [facility] MPV 10.0 8.8 - 12.5 fL LAB HEMATOLOGY METHOD 10/31/2024 2:13 AM EDT [facility] nRBC 7.0(H) <=0.0 per 100 WBCs LAB HEMATOLOGY METHOD 10/31/2024 2:13 AM EDT [facility] Differential Type Manual LAB HEMATOLOGY METHOD 10/31/2024 2:13 AM EDT [facility] Blood Venous blood specimen / Unknown Venipuncture / Unknown 10/31/2024 12:21 AM EDT 10/31/2024 12:55 AM EDT Narrative [facility] - 10/31/2024 2:13 AM EDT [...] ORDERABLES Final Res ult Performing Organization Address [facility] Co de Phone Number [facility] [address] [place] [address] * (ABNORMAL) Magnesium, Plasma (10/31/2024 12:21 AM EDT) Magnesium, Plasma 1.5(L) 1.9 - 2.4 mg/dL 10/31/2024 1:25 AM EDT [facility] Blood Venous blood specimen / Unknown Venipuncture / Unknown 10/31/2024 12:21 AM EDT 10/31/2024 12:55 AM EDT Robert Amin MD LAB BLOOD ORDERABLES Final Res ult Performing Organization Address [facility] de Phone Number [facility] [address] [place] [address] * (ABNORMAL) Basic Metabolic Panel, Plasma (10/31/2024 12:21 AM EDT) Glucose, Plasma 337(H) 74 - 99 mg/dL 10/31/2024 1:24 AM EDT [facility] BUN, Plasma 15 8 - 23 mg/dL 10/31/2024 1:24 AM EDT [facility] Creatinine, Plasma 0.63 0.60 - 1.10 mg/dL 10/31/2024 1:24 AM EDT [facility] BUN/Creatinine Ratio 10/31/2024 1:24 AM EDT [facility] Sodium, Plasma 139 136 - 145 mmol/L 10/31/2024 1:24 AM EDT [facility] Potassium, Plasma 4.2 3.6 - 4.9 mmol/L 10/31/2024 1:24 AM EDT [facility] Chloride, Plasma 102 97 - 107 mmol/L 10/31/2024 1:24 AM EDT [facility] CO2, Plasma 25 22 - 29 mmol/L 10/31/2024 1:24 AM EDT [facility] Anion Gap 12 6 - 16 mmol/L 10/31/2024 1:24 AM EDT [facility] Total Calcium, Plasma 8.8(L) 8.9 - 10.2 mg/dL 10/31/2024 1:24 AM EDT [facility] eGFRcr 99.8 mL/min/1.7 3m*2 10/31/2024 1:24 AM EDT [facility] Comment:Reported eGFRcr in m L/min/1.73m2 is based the CKD-EPI 2020 equation that does not use a race coefficient. Blood Venous blood specimen / Unknown Venipuncture / Unknown 10/31/2024 12:21 AM EDT 10/31/2024 12:55 AM EDT us Robert Amin MD LAB BLOOD ORDERABLES Final Res ult [facility] [address] [place] [address] * (ABNORMAL) POCT glucose meter (10/30/2024 7:02 [...] Comment 10/30/2024 7:04 PM EDT [facility] Equity Sales Assistant ID Amanda Berman 7:04 PM EDT [facility] Device ID [id number] 10/30/2024 7:04 PM EDT [facility] Specimen Type POC Capillary 10/30/2024 7:04 PM EDT [facility] Blood Capillary blood specimen / Unknown 10/30/2024 7:02 PM EDT 10/30/2024 7:04 PM EDT us Robert Amin MD LAB POINT OF CARE TE ST DOCKED DEVICE UNSOLICITED RESULTS Final Result [facility] [address] [place] [address] * (ABNORMAL) POCT glucose meter (10/30/2024 4:48 PM EDT) Pathologist [facility] POCT Glucose 235(H) 74 - 99 mg/dL [...] Comment 10/30/2024 4:50 PM EDT [facility] Equity Sales Assistant ID Maryanne Raines 10/30/2024 4:50 PM EDT [facility] Device ID [id number] 10/30/2024 4:50 PM EDT [facility] Specimen Type POC Capillary 10/30/2024 4:50 PM EDT [facility] Blood Capillary blood specimen / Unknown 10/30/2024 4:48 PM EDT 10/30/2024 4:50 PM EDT us Robert Amin MD LAB POINT OF CARE TE ST DOCKED DEVICE UNSOLICITED RESULTS Final Result [facility] [address] [place] [address] * (ABNORMAL) POCT glucose meter (10/30/2024 11:23 AM EDT) Pathologist [facility] POCT Glucose 397(H) 74 - 99 mg/dL [...] 10/30/2024 11:24 AM EDT [facility] Equity Sales Assistant ID Raines, Maryanne 10/30/2024 11:24 AM EDT [facility]ALTH[facility]ARE LAB Device ID [id number] 10/30/2024 11:24 AM EDT [facility] Specimen Type POC Capillary 10/30/2024 11:24 AM EDT [facility] Blood Capillary blood specimen / Unknown 10/30/2024 11:23 AM EDT 10/30/2024 11:24 AM EDT us Robert Amin MD LAB POINT OF CARE TE ST DOCKED DEVICE UNSOLICITED RESULTS Final Result Performing Organization Address City/[facility]/ZIP Co de Phone Number [facility] [address] [place] [address] * (ABNORMAL) Magnesium, Plasma (10/30/2024 8:35 AM EDT) Magnesium, Plasma 1.4(L) 1.9 - 2.4 mg/dL 10/30/2024 9:10 AM EDT [facility] Blood Venous blood specimen / Unknown Venipuncture / Unknown 10/30/2024 8:35 AM EDT 10/30/2024 8:41 AM EDT us Robert Amin MD LAB BLOOD ORDERABLES Final Res ult [facility] [address] [place] [address] * (ABNORMAL) Basic Metabolic Panel, Plasma (10/30/2024 8:35 AM EDT) Glucose, Plasma 347(H) 74 - 99 mg/dL 10/30/2024 9:10 AM EDT [facility] BUN, Plasma 11 8 - 23 mg/dL 10/30/2024 9:10 AM EDT [facility] Creatinine, Plasma 0.62 0.60 - 1.10 mg/dL 10/30/2024 9:10 AM EDT [facility] BUN/Creatinine Ratio 18 10/30/2024 9:10 AM EDT [facility] Sodium, Plasma 139 136 - 145 mmol/L 10/30/2024 9:10 AM EDT [facility] Potassium, Plasma 4.8 3.6 - 4.9 mmol/L 10/30/2024 9:10 AM EDT [facility] Chloride, Plasma 103 97 - 107 mmol/L 10/30/2024 9:10 AM EDT [facility] CO2, Plasma 27 22 - 29 mmol/L 10/30/2024 9:10 AM EDT [facility] Anion Gap 9 6 - 16 mmol/L 10/30/2024 9:10 AM EDT [facility] Total Calcium, Plasma 9.0 8.9 - 10.2 mg/dL 10/30/2024 9:10 AM EDT [facility] eGFRcr 100.2 mL/min/1.7 3m*2 10/30/2024 9:10 AM EDT [facility] Comment:Reported eGFRcr in m L/min/1.73m2 is based the CKD-EPI 2020 equation that does not use a race coefficient. Blood Venous blood specimen / Unknown Venipuncture / Unknown 10/30/2024 8:35 AM EDT 10/30/2024 8:41 AM EDT us Robert Amin MD LAB BLOOD ORDERABLES Final Res ult [facility] [address] [place] [address] * (ABNORMAL) POCT glucose meter (10/30/2024 7:24 [...] 10/30/2024 7:26 AM EDT [facility] Equity Sales Assistant ID Maryanne Raines 10/30/2024 7:26 AM EDT [facility] Device ID [id number] 10/30/2024 7:26 AM EDT [facility] Specimen Type POC Capillary 10/30/2024 7:26 AM EDT [facility] Blood Capillary blood specimen / Unknown 10/30/2024 7:24 AM EDT 10/30/2024 7:26 AM EDT Robert Amin MD LAB POINT OF CARE TE ST DOCKED DEVICE UNSOLICITED RESULTS Final Result Performing Organization Address City/[facility] Co de Phone Number [facility] [address] [place] [address] * (ABNORMAL) POCT glucose meter (10/30/2024 3:08 [...] Comment 10/30/2024 3:10 AM EDT [facility] Equity Sales Assistant ID Edwin Gunter 10/31/19 3:10 AM EDT [facility]ALTH[facility]ARE LAB Device ID [id number] 10/30/2024 3:10 AM EDT [facility] Specimen Type POC Capillary 10/30/2024 3:10 AM EDT [facility] Blood Capillary blood specimen / Unknown 10/30/2024 3:08 AM EDT 10/30/2024 3:10 AM EDT us Robert Amin MD LAB POINT OF CARE TE ST DOCKED DEVICE UNSOLICITED RESULTS Final Result Performing Organization Address City/[facility] Co de Phone Number [facility] [address] [place] [address] * (ABNORMAL) POCT glucose meter (10/29/2024 10:03 [...] 10/29/2024 10:04 PM EDT [facility] Equity Sales Assistant ID Edwin Gunter 10/30/19 10:04 PM EDT [facility] LAB Device ID [id number] 10/29/2024 10:04 PM EDT [facility] Specimen Type POC Capillary 10/29/2024 10:04 PM EDT [facility] Blood Capillary blood specimen / Unknown 10/29/2024 10:03 PM EDT 10/29/2024 10:04 PM EDT Robert Amin MD LAB POINT OF CARE TE ST DOCKED DEVICE UNSOLICITED RESULTS Final Result Performing Organization Address City/State/[facility] Co de Phone Number [facility] [address] [place] [address] * (ABNORMAL) POCT glucose meter (10/29/2024 4:43 PM EDT) [facility] POCT Glucose 267(H) 74 - 99 mg/dL [...] 10/29/2024 4:45 PM EDT [facility] Equity Sales Assistant ID Kasey Frausto 10/30/19 4:45 PM EDT [facility]ALTH[facility]ARE LAB Device ID [id number] 10/29/2024 4:45 PM EDT [facility] Specimen Type POC Capillary 10/29/2024 4:45 PM EDT [facility] Blood Capillary blood specimen / Unknown 10/29/2024 4:43 PM EDT 10/29/2024 4:45 PM EDT Robert Amin MD LAB POINT OF CARE TE ST DOCKED DEVICE UNSOLICITED RESULTS Final Result Performing Organization Address [facility] de Phone Number [facility] [address] [place] [address] * (ABNORMAL) POCT glucose meter (10/29/2024 11:24 [...] for testing. Comment 10/29/2024 11:26 AM EDT [facility] Equity Sales Assistant ID GeKasey del toro 10/30/19 11:26 AM EDT [facility] Device ID [id number] 10/29/2024 11:26 AM EDT [facility] Specimen Type POC Capillary 10/29/2024 11:26 AM EDT [facility] Blood Capillary blood specimen / Unknown 10/29/2024 11:24 AM EDT 10/29/2024 11:26 AM EDT Robert Amin MD LAB POINT OF CARE TE ST DOCKED DEVICE UNSOLICITED RESULTS Final Result Performing Organization Address City/[facility] Co de Phone Number [facility] [address] [place] [address] * (ABNORMAL) POCT glucose meter (10/29/2024 7:35 [...] Comment 10/29/2024 7:36 AM EDT [facility] Equity Sales Assistant ID Kasey Frausto 10/30/19 7:36 AM EDT [facility]ALTH[facility]ARE LAB Device ID [id number] 10/29/2024 7:36 AM EDT [facility] Specimen Type POC Capillary 10/29/2024 7:36 AM EDT [facility] Blood Capillary blood specimen / Unknown 10/29/2024 7:35 AM EDT 10/29/2024 7:36 AM EDT us Robert Amin MD LAB POINT OF CARE TE ST DOCKED DEVICE UNSOLICITED RESULTS Final Result Performing Organization Address [facility]/ZIP Co de Phone Number HEALTHCARE LAB [address] [place] [address] * (ABNORMAL) Magnesium, Plasma (10/29/2024 3:03 AM EDT) Magnesium, Plasma 1.8(L) 1.9 - 2.4 mg/dL 10/29/2024 3:49 AM EDT [facility] Blood Venous blood specimen / Unknown Venipuncture / Unknown 10/29/2024 3:03 AM EDT 10/29/2024 3:09 AM EDT us Robert Amin MD LAB BLOOD ORDERABLES Final Res ult [facility] [address] [place] [address] * (ABNORMAL) Basic metabolic panel (10/29/2024 3:03 AM EDT) Glucose, Plasma 266(H) 74 - 99 mg/dL 10/29/2024 3:49 AM EDT [facility] BUN, Plasma 10 8 - 23 mg/dL 10/29/2024 3:49 AM EDT [facility] Creatinine, Plasma 0.66 0.60 - 1.10 mg/dL 10/29/2024 3:49 AM EDT [facility] BUN/Creatinine Ratio 15 10/29/2024 3:49 AM EDT [facility] Sodium, Plasma 145 136 - 145 mmol/L 10/29/2024 3:49 AM EDT [facility] Potassium, Plasma 4.8 3.6 - 4.9 mmol/L 10/29/2024 3:49 AM EDT [facility] Chloride, Plasma 109(H) 97 - 107 mmol/L 10/29/2024 3:49 AM EDT [facility] CO2, Plasma 25 22 - 29 mmol/L 10/29/2024 3:49 AM EDT [facility] Anion Gap 11 6 - 16 mmol/L 10/29/2024 3:49 AM EDT [facility] Total Calcium, Plasma 8.5(L) 8.9 - 10.2 mg/dL 10/29/2024 3:49 AM EDT [facility] eGFRcr 98.7 mL/min/1.7 3m*2 10/29/2024 3:49 AM EDT [facility] Comment:Reported eGFRcr in m L/min/1.73m2 is based the CKD-EPI 2020 equation that does not use a race coefficient. Blood Venous blood specimen / Unknown Venipuncture / Unknown 10/29/2024 3:03 AM EDT 10/29/2024 3:09 AM EDT us Robert Amin MD LAB BLOOD ORDERABLES Final Res ult [facility] [address] [place] [address] * (ABNORMAL) POCT glucose meter (10/29/2024 2:47 AM EDT) POCT Glucose 252(H) 74 - 99 mg/dL 10/29/2024 2:49 AM EDT [facility] Comment:Accuracy of a glucos e result [...] for testing. Comment 10/29/2024 2:49 AM EDT [facility] Equity Sales Assistant ID Fang Lopez 10/29/2024 2:49 AM EDT [facility] Device ID [id number] 10/29/2024 2:49 AM EDT [facility] Specimen Type POC Capillary 10/29/2024 2:49 AM EDT [facility] Blood Capillary blood specimen / Unknown 10/29/2024 2:47 AM EDT 10/29/2024 2:49 AM EDT us Robert Amin MD LAB POINT OF CARE TE ST DOCKED DEVICE UNSOLICITED RESULTS Final Result Performing Organization Address City/[facility] Co de Phone Number [facility] [address] [place] [address] * (ABNORMAL) POCT glucose meter (10/28/2024 8:57 PM EDT) [facility] POCT Glucose 314(H) 74 - 99 mg/dL [...] 10/28/2024 8:59 PM EDT [facility] Equity Sales Assistant ID Abida Ken 10/28/2024 8:59 PM EDT [facility] Device ID [id number] 10/28/2024 8:59 PM EDT [facility] Specimen Type POC Capillary 10/28/2024 8:59 PM EDT [facility] Blood Capillary blood specimen / Unknown 10/28/2024 8:57 PM EDT 10/28/2024 8:59 PM EDT us Robert Amin MD LAB POINT OF CARE TE ST DOCKED DEVICE UNSOLICITED RESULTS Final Result Performing Organization Address City/[facility]/ZIP Co de Phone Number [facility]ALTHCARE [facility] [address] [place] [address] * (ABNORMAL) POCT glucose meter (10/28/2024 5:11 PM EDT) [facility] POCT Glucose 340(H) 74 - 99 mg/dL [...] Comment 10/28/2024 5:13 PM EDT [facility]ALTH[facility]ARE LAB Equity Sales Assistant ID Kasey Frausto 10/29/19 5:13 PM EDT [facility]ALTH[facility]ARE LAB Device ID [id number] 10/28/2024 5:13 PM EDT [facility]ALTH[facility]ARE LAB Specimen Type POC Capillary 10/28/2024 5:13 PM EDT [facility] Blood Capillary blood specimen / Unknown 10/28/2024 5:11 PM EDT 10/28/2024 5:13 PM EDT Robert Amin MD LAB POINT OF CARE TE ST DOCKED DEVICE UNSOLICITED RESULTS Final Result Performing Organization Address City/State/[facility] Co de Phone Number HEALTHCARE LAB [address] [place] [address] * (ABNORMAL) POCT glucose meter (10/28/2024 11:28 AM EDT) [facility] POCT Glucose 261(H) 74 - 99 mg/dL [...] 10/28/2024 11:29 AM EDT [facility] Equity Sales Assistant ID Kasey Frausto 10/29/19 11:29 AM EDT [facility] Device ID [id number] 10/28/2024 11:29 AM EDT [facility]ALTH[facility]ARE LAB Specimen Type POC Capillary 10/28/2024 11:29 AM EDT [facility] Blood Capillary blood specimen / Unknown 10/28/2024 11:28 AM EDT 10/28/2024 11:29 AM EDT Robert Amin MD LAB POINT OF CARE TE ST DOCKED DEVICE UNSOLICITED RESULTS Final Result Performing Organization Address [facility] de Phone Number HEALTHCARE LAB [address] [place] [address] * (ABNORMAL) POCT glucose meter (10/28/2024 7:33 [...] Comment 10/28/2024 7:35 AM EDT HEALTHCARE LAB Equity Sales Assistant ID GeKasey del toro 10/29/19 7:35 AM EDT HEALTHCARE LAB Device ID [id number] 10/28/2024 7:35 AM EDT [facility] Specimen Type POC Capillary 10/28/2024 7:35 AM EDT [facility] Blood Capillary blood specimen / Unknown 10/28/2024 7:33 AM EDT 10/28/2024 7:35 AM EDT us Robert Amin MD LAB POINT OF CARE TE ST DOCKED DEVICE UNSOLICITED RESULTS Final Result Performing Organization Address City/[facility] Co de Phone Number [facility] [address] [place] [address] * (ABNORMAL) POCT glucose meter (10/28/2024 3:06 [...] Comment 10/28/2024 3:09 AM EDT HEALTHCARE LAB Equity Sales Assistant ID Abida Ken 10/28/2024 3:09 AM EDT HEALTHCARE LAB Device ID [id number] 10/28/2024 3:09 AM EDT HEALTHCARE LAB Specimen Type POC Capillary 10/28/2024 3:09 AM EDT [facility]ALTH[facility]ARE LAB Blood Capillary blood specimen / Unknown 10/28/2024 3:06 AM EDT 10/28/2024 3:09 AM EDT us Robert Amin MD LAB POINT OF CARE TE ST DOCKED DEVICE UNSOLICITED RESULTS Final Result Performing Organization Address [facility] Co de Phone Number [facility] [address] [place] [address] * (ABNORMAL) Magnesium, Plasma (10/28/2024 3:00 AM EDT) Magnesium, Plasma 1.8(L) 1.9 - 2.4 mg/dL 10/28/2024 3:47 AM EDT [facility] Blood Venous blood specimen / Unknown Venipuncture / Unknown 10/28/2024 3:00 AM EDT 10/28/2024 3:19 AM EDT us Robert Amin MD LAB BLOOD ORDERABLES Final Res ult [facility] [address] [place] [address] * (ABNORMAL) Basic metabolic panel (10/28/2024 3:00 AM EDT) Glucose, Plasma 315(H) 74 - 99 mg/dL 10/28/2024 3:47 AM EDT [facility] BUN, Plasma 10 8 - 23 mg/dL 10/28/2024 3:47 AM EDT [facility] Creatinine, Plasma 0.71 0.60 - 1.10 mg/dL 10/28/2024 3:47 AM EDT [facility] BUN/Creatinine Ratio 14 10/28/2024 3:47 AM EDT [facility] Sodium, Plasma 142 136 - 145 mmol/L 10/28/2024 3:47 AM EDT [facility] Potassium, Plasma 4.0 3.6 - 4.9 mmol/L 10/28/2024 3:47 AM EDT [facility] Chloride, Plasma 107 97 - 107 mmol/L 10/28/2024 3:47 AM EDT [facility] CO2, Plasma 27 22 - 29 mmol/L 10/28/2024 3:47 AM EDT [facility] Anion Gap 8 6 - 16 mmol/L 10/28/2024 3:47 AM EDT [facility] Total Calcium, Plasma 8.2(L) 8.9 - 10.2 mg/dL 10/28/2024 3:47 AM EDT [facility] eGFRcr 95.7 mL/min/1.7 3m*2 10/28/2024 3:47 AM EDT [facility] Comment:Reported eGFRcr in m L/min/1.73m2 is based the CKD-EPI 2020 equation that does not use a race coefficient. Blood Venous blood specimen / Unknown Venipuncture / Unknown 10/28/2024 3:00 AM EDT 10/28/2024 3:19 AM EDT us Robert Amin MD LAB BLOOD ORDERABLES Final Res ult [facility] [address] [place] [address] * (ABNORMAL) POCT glucose meter (10/27/2024 9:38 PM EDT) POCT Glucose 294(H) 74 - 99 mg/dL 10/27/2024 9:40 PM EDT [facility] Comment:Accuracy of a [...] Comment 10/27/2024 9:40 PM EDT HEALTHCARE LAB Equity Sales Assistant ID Abida Ken 10/27/2024 9:40 PM EDT [facility] Device ID [id number] 10/27/2024 9:40 PM EDT [facility] Specimen Type POC Capillary 10/27/2024 9:40 PM EDT [facility]ALTH[facility]ARE LAB Blood Capillary blood specimen / Unknown 10/27/2024 9:38 PM EDT 10/27/2024 9:40 PM EDT Robert Amin MD LAB POINT OF CARE TE ST DOCKED DEVICE UNSOLICITED RESULTS Final Result Performing Organization Address City/[facility] Co de Phone Number [facility] [address] [place] [address] * (ABNORMAL) POCT glucose meter (10/27/2024 4:51 PM EDT) [facility] POCT Glucose 236(H) 74 - 99 mg/dL [...] 10/27/2024 4:53 PM EDT [facility] Equity Sales Assistant ID Sarina Tyson 10/27/2024 4:53 PM EDT [facility] Device ID [id number] 10/27/2024 4:53 PM EDT [facility] Specimen Type POC Capillary 10/27/2024 4:53 PM EDT [facility] Blood Capillary blood specimen / Unknown 10/27/2024 4:51 PM EDT 10/27/2024 4:53 PM EDT Robert Amin MD LAB POINT OF CARE TE ST DOCKED DEVICE UNSOLICITED RESULTS Final Result Performing Organization Address City/[facility]/ZIP Co de Phone Number [facility] [address] [place] [address] * (ABNORMAL) POCT glucose meter (10/27/2024 11:34 AM EDT) Pathologist [facility] [place] POCT Glucose 403(H) 74 - 99 mg/dL [...] for testing. Comment 10/27/2024 11:36 AM EDT [email or web address] Equity Sales Assistant ID Sarina Tyson 10/27/2024 11:36 AM EDT [facility] Device ID [id number] 10/27/2024 11:36 AM EDT [facility] Specimen Type POC Capillary 10/27/2024 11:36 AM EDT [facility] Blood Capillary blood specimen / Unknown 10/27/2024 11:34 AM EDT 10/27/2024 11:36 AM EDT Robert Amin MD LAB POINT OF CARE TE ST DOCKED DEVICE UNSOLICITED RESULTS Final Result Performing Organization Address City/State/[facility] Co de Phone Number [facility] [address] [place] [address] * (ABNORMAL) POCT glucose meter (10/27/2024 7:30 AM EDT) Pathologist [facility] POCT Glucose 216(H) 74 - 99 mg/dL [...] for testing. Comment 10/27/2024 7:31 AM EDT [email or web address] Equity Sales Assistant ID Sarina Tyson 10/27/2024 7:31 AM EDT [email or web address] Device ID [id number] 10/27/2024 7:31 AM EDT HEALTHCARE LAB Specimen Type POC Capillary 10/27/2024 7:31 AM EDT [facility] Blood Capillary blood specimen / Unknown 10/27/2024 7:30 AM EDT 10/27/2024 7:31 AM EDT us Robert Amin MD LAB POINT OF CARE TE ST DOCKED DEVICE UNSOLICITED RESULTS Final Result Performing Organization Address City/[facility]/ZIP Co de Phone Number [facility] [address] [place] [address] * (ABNORMAL) Phosphorus (10/27/2024 4:04 AM EDT) Phosphorus, Plasma 2.4(L) 2.5 - 4.5 mg/dL 10/27/2024 5:08 AM EDT [facility] Blood Venous blood specimen / Unknown Venipuncture / Unknown 10/27/2024 4:04 AM EDT 10/27/2024 4:38 AM EDT us Robert Amin MD LAB BLOOD ORDERABLES Final Res ult Performing Organization Address City/[facility]/[place] [address] * (ABNORMAL) Magnesium, Plasma (10/27/2024 4:04 AM EDT) Magnesium, Plasma 2.5(H) 1.9 - 2.4 mg/dL 10/27/2024 5:08 AM EDT [facility] Blood Venous blood specimen / Unknown Venipuncture / Unknown 10/27/2024 4:04 AM EDT 10/27/2024 4:38 AM EDT us Robert Amin MD LAB BLOOD ORDERABLES Final Res ult Performing Organization Address City/[facility]/ZIP Co de Phone Number [facility] [address] [place] [address] * (ABNORMAL) Comprehensive metabolic panel (10/27/2024 4:04 AM EDT) Glucose, Plasma 226(H) 74 - 99 mg/dL 10/27/2024 5:08 AM EDT [facility] BUN, Plasma 7(L) 8 - 23 mg/dL 10/27/2024 5:08 AM EDT [facility] Creatinine, Plasma 0.70 0.60 - 1.10 mg/dL 10/27/2024 5:08 AM EDT [facility] BUN/Creatinine Ratio 10 10/27/2024 5:08 AM EDT [facility] Sodium, Plasma 141 136 - 145 mmol/L 10/27/2024 5:08 AM EDT [facility] Potassium, Plasma 4.5 3.6 - 4.9 mmol/L 10/27/2024 5:08 AM EDT [facility] Chloride, Plasma 104 97 - 107 mmol/L 10/27/2024 5:08 AM EDT [facility] CO2, Plasma 29 22 - 29 mmol/L 10/27/2024 5:08 AM EDT [facility] Anion Gap 8 6 - 16 mmol/L 10/27/2024 5:08 AM EDT [facility] Total Calcium, Plasma 8.3(L) 8.9 - 10.2 mg/dL 10/27/2024 5:08 AM EDT [facility] Total Protein 6.4 6.3 - 7.9 g/dL 10/27/2024 5:08 AM EDT [facility] Albumin, Plasma 3.1(L) 3.5 - 5.2 g/dL 10/27/2024 5:08 AM EDT [facility] AST, Plasma 22 10 - 35 U/L 10/27/2024 5:08 AM EDT [facility] ALT, Plasma 28 10 - 35 U/L 10/27/2024 5:08 AM EDT [facility] Alkaline Phosphatase, Plasma 95 46 - 142 U/L 10/27/2024 5:08 AM EDT [facility] Total Bilirubin, Plasma 0.5 0.2 - 1.1 mg/dL 10/27/2024 5:08 AM EDT [facility] eGFRcr 97.3 mL/min/1.7 3m*2 10/27/2024 5:08 AM EDT [facility] Comment:Reported eGFRcr in m L/min/1.73m2 is based the CKD-EPI 2020 equation that does not use a race coefficient. Blood Venous blood specimen / Unknown Venipuncture / Unknown 10/27/2024 4:04 AM EDT 10/27/2024 4:38 AM EDT us Robert Amin MD LAB BLOOD ORDERABLES Final Res ult [facility] [address] [place] [address] * (ABNORMAL) CBC and Differential (10/27/2024 4:04 AM EDT) WBC Count 4.25 3.70 - 10.30 10*3/uL LAB HEMATOLOGY METHOD 10/27/2024 4:31 AM EDT [facility] RBC Count 2.37(L) 3.90 - 5.20 10*6/uL LAB HEMATOLOGY METHOD 10/27/2024 4:31 AM EDT [facility] HGB 7.0(L) 11.2 - 15.7 g/dL LAB HEMATOLOGY METHOD 10/27/2024 4:31 AM EDT [facility] HCT 23.0(L) 34.0 - 45.0 % LAB HEMATOLOGY METHOD 10/27/2024 4:31 AM EDT [facility] Platelet Count 221 155 - 369 10*3/uL LAB HEMATOLOGY METHOD 10/27/2024 4:31 AM EDT [facility] MCV 97 79 - 98 fL LAB HEMATOLOGY METHOD 10/27/2024 4:31 AM EDT [facility] MCH 29.5 26.0 - 32.0 pg LAB HEMATOLOGY METHOD 10/27/2024 4:31 AM EDT [facility] MCHC 30.4(L) 30.7 - 35.5 g/dL LAB HEMATOLOGY METHOD 10/27/2024 4:31 AM EDT [facility] RDW 15.8(H) 11.5 - 14.5 % LAB HEMATOLOGY METHOD 10/27/2024 4:31 AM EDT [facility] MPV 10.0 8.8 - 12.5 fL LAB HEMATOLOGY METHOD 10/27/2024 4:31 AM EDT [facility] nRBC 1.6(H) <=0.0 per 100 WBCs LAB HEMATOLOGY METHOD 10/27/2024 4:31 AM EDT [facility] Differential Type Automated LAB HEMATOLOGY METHOD 10/27/2024 4:31 AM EDT [facility] Neutrophils % 74 % LAB HEMATOLOGY METHOD 10/27/2024 4:31 AM EDT [facility] Lymphocytes % 13 % LAB HEMATOLOGY METHOD 10/27/2024 4:31 AM EDT [facility] Monocytes % 5 % LAB HEMATOLOGY METHOD 10/27/2024 4:31 AM EDT [facility] Eosinophils % 0 % LAB HEMATOLOGY METHOD 10/27/2024 4:31 AM EDT [facility] Basophils % 1 % LAB HEMATOLOGY METHOD 10/27/2024 4:31 AM EDT [facility] Immature Granulocytes % 7 % LAB HEMATOLOGY METHOD 10/27/2024 4:31 AM EDT [facility] Neutrophils Absolute 3.19 1.60 - 6.10 10*3/uL LAB HEMATOLOGY METHOD 10/27/2024 4:31 AM EDT [facility] Lymphocytes Absolute 0.54(L) 1.20 - 3.90 10*3/uL LAB HEMATOLOGY METHOD 10/27/2024 4:31 AM EDT [facility] Monocytes Absolute 0.21(L) 0.30 - 0.90 10*3/uL LAB HEMATOLOGY METHOD 10/27/2024 4:31 AM EDT [facility] Eosinophils Absolute 0.00 0.00 - 0.50 10*3/uL LAB HEMATOLOGY METHOD 10/27/2024 4:31 AM EDT [facility] Basophils Absolute 0.03 0.00 - 0.10 10*3/uL LAB HEMATOLOGY METHOD 10/27/2024 4:31 AM EDT [facility] Immature Granulocytes Absolute 0.28(H) 0.00 - 0.06 10*3/uL LAB HEMATOLOGY METHOD 10/27/2024 4:31 AM T [facility] Blood Venous blood specimen / Unknown Venipuncture / Unknown 10/27/2024 4:04 AM EDT 10/27/2024 4:[address] [facility] - 10/27/2024 4:31 AM EDT Therapeutic decision making should be based on absolute values, rather than percentages. us Robert Amin MD LAB BLOOD ORDERABLES Final Res ult Performing Organization Address [facility] Co de Phone Number [facility] [address] [place] [address] * (ABNORMAL) POCT glucose meter (10/27/2024 3:59 [...] for testing. Comment 10/27/2024 4:01 AM EDT [facility] Equity Sales Assistant ID Zhane Veliz 10/27/2024 4:01 AM EDT [facility] Device ID [id number] 10/27/2024 4:01 AM EDT [facility] Specimen Type POC Capillary 10/27/2024 4:01 AM EDT [facility] Blood Capillary blood specimen / Unknown 10/27/2024 3:59 AM EDT 10/27/2024 4:01 AM EDT us Robert Amin MD LAB POINT OF CARE TE ST DOCKED DEVICE UNSOLICITED RESULTS Final Result Performing Organization Address [facility] Co de Phone Number [facility] [address] [place] [address] * (ABNORMAL) POCT glucose meter (10/26/2024 7:52 [...] Comment 10/26/2024 7:57 PM EDT HEALTHCARE LAB Equity Sales Assistant ID Rupa Leyva 10/26/2024 7:57 PM EDT [facility] Device ID [id number] 10/26/2024 7:57 PM EDT [facility] Specimen Type POC Capillary 10/26/2024 7:57 PM EDT [facility] LAB Blood Capillary blood specimen / Unknown 10/26/2024 7:52 PM EDT 10/26/2024 7:57 PM EDT us Robert Amin MD LAB POINT OF CARE TE ST DOCKED DEVICE UNSOLICITED RESULTS Final Result Performing Organization Address City/[facility]/ZIP Co de Phone Number HEALTHCARE LAB [address] [place] [address] * (ABNORMAL) POCT glucose meter (10/26/2024 4:09 PM EDT) [facility] POCT Glucose 290(H) 74 - 99 mg/dL [...] Comment 10/26/2024 4:11 PM EDT [facility]ALTH[facility]ARE LAB Equity Sales Assistant ID Nkechi Duff 025 4:11 PM EDT [facility]ALTH[facility]ARE LAB Device ID [id number] 10/26/2024 4:11 PM EDT [facility] LAB Specimen Type POC Capillary 10/26/2024 4:11 PM EDT [facility] Blood Capillary blood specimen / Unknown 10/26/2024 4:09 PM EDT 10/26/2024 4:11 PM EDT us Robert Amin MD LAB POINT OF CARE TE ST DOCKED DEVICE UNSOLICITED RESULTS Final Result [facility] [address] [place] [address] * PERIPHERAL IV (SMARTFORM LINK) (10/26/2024 12:46 [...] POCT glucose meter (10/26/2024 10:57 AM EDT) [facility] POCT Glucose 175(H) 74 - 99 mg/dL [...] Comment 10/26/2024 10:59 AM EDT [facility]ALTHCARE LAB Equity Sales Assistant ID Nkechi Duff 025 10:59 AM EDT [facility]ALTH[facility]ARE LAB Device ID [id number] 10/26/2024 10:59 AM EDT [facility]ALTH[facility]ARE LAB Specimen Type POC Capillary 10/26/2024 10:59 AM EDT [facility] Blood Capillary blood specimen / Unknown 10/26/2024 10:57 AM EDT 10/26/2024 10:59 AM EDT Robert Amin MD LAB POINT OF CARE TE ST DOCKED DEVICE UNSOLICITED RESULTS Final Result [facility] [address] [place] [address] * (ABNORMAL) POCT glucose meter (10/26/2024 5:58 AM EDT) [facility] POCT Glucose 142(H) 74 - 99 mg/dL [...] Comment 10/26/2024 6:00 AM EDT HEALTHCARE LAB Equity Sales Assistant ID Heena Ornelas 10/27/19 6:00 AM EDT HEALTHCARE LAB Device ID [id number] 10/26/2024 6:00 AM EDT [facility] Specimen Type POC Capillary 10/26/2024 6:00 AM EDT [facility] Blood Capillary blood specimen / Unknown 10/26/2024 5:58 AM EDT 10/26/2024 6:00 AM EDT us Robert Amin MD LAB POINT OF CARE TE ST DOCKED DEVICE UNSOLICITED RESULTS Final Result Performing Organization Address City/[facility]/ZIP Co de Phone Number [facility] [address] [place] [address] * Streptococcus pneumoniae and Legionella Urinary Antigen (10/26/2024 5:37 AM EDT) [facility] Legionella pneumophila serogroup 1 Antigen Result (Urine) Negative Negative 10/26/2024 7:43 AM EDT [facility] Streptococcus pneumoniae Antigen Result (Urine) Negative Negative 10/26/2024 7:43 AM EDT [facility] Urine Urine specimen obtained by clean catch procedure / Unknown Non-blood Collection / Unknown 10/26/2024 5:37 AM EDT 10/26/2024 6:19 AM EDT Robert Amin MD LAB MICROBIOLOGY - GENERAL ORD ERABLES Final Result [facility] [address] [place] [address] * (ABNORMAL) Respiratory Culture and Gram Stain (10/26/2024 5:37 AM EDT) Culture Light Growth 10/31/2024 12:21 PM EDT [facility] Culture Pseudomonas aeruginosa MDR, ATMOSPHERIC PHYSICS PROFESSOR(AA) DONAVAN 10/31/2024 12:21 PM EDT [facility] Comment: This isolate has been identified using the FDA Approved MALDI G2Linker CA System Tobramycin no longer reported. If [...] than 25 WBC/LPF(A) 10/31/2024 12:21 PM EDT [facility] Gram Stain Result Greater than 10 Epithelial cells/LPF(A) 10/31/2024 12:21 PM EDT [facility] Gram Stain Result Few Gram negative rods(A) 10/31/2024 12:21 PM EDT [facility] Gram Stain Result Rare Budding yeast(A) 10/31/2024 12:21 PM EDT [facility] Gram Stain Result Few Gram positive rods(A) 10/31/2024 12:21 PM EDT [facility] Gram Stain Result Rare Gram positive cocci in clusters(A) 10/31/2024 12:21 PM EDT [facility] Sputum Coughed sputum specimen / Unknown Non-blood Collection / Unknown 10/26/2024 5:37 AM EDT 10/26/2024 6:19 AM EDT Narrative Organism Antibiotic Method Susceptibility Pseudomonas aeruginosa MDR, ATMOSPHERIC PHYSICS PROFESSOR Aztreonam DONAVAN 8 ug/ml: Susceptible Pseudomonas aeruginosa MDR, ATMOSPHERIC PHYSICS PROFESSOR Cefepime DONAVAN 16 ug/ml: Resistant Pseudomonas aeruginosa MDR, ATMOSPHERIC PHYSICS PROFESSOR Levofloxacin DONAVAN >4 ug/ml: Resistant Pseudomonas aeruginosa MDR, ATMOSPHERIC PHYSICS PROFESSOR Piperacillin/Tazobactam DONAVAN 64/4 ug/ml: Intermediate Pseudomonas aeruginosa MDR, ATMOSPHERIC PHYSICS PROFESSOR Meropenem ETEST 32.0 ug/ml: Resistant Comment:The previously repor samaria component Tobramycin is no longer being reported. Robert Amin MD LAB MICROBIOLOGY - GENERAL ORD ERABLES Edited Result - Final Performing Organization Address [facility]/ZIP Co de Phone Number [facility] [address] [place] [address] * Blood Culture (Aerobic/Anaerobet Set) (10/26/2024 3:03 AM EDT) Culture No growth at day 5 10/31/2024 5:01 AM EDT [facility] Blood Structure of left hand / Unknown Venipuncture / Unknown 10/26/2024 3:03 AM EDT 10/26/2024 4:58 AM EDT Doris Contreras MD LAB MICROBIOLOGY - GENE RAL ORDERABLES Final Result Performing Organization Address [facility]/ZIP Co de Phone Number [facility] [address] [place] [address] * Phosphorus (10/26/2024 3:02 AM EDT) Phosphorus, Plasma 3.7 2.5 - 4.5 mg/dL 10/26/2024 3:47 AM EDT [facility] Blood Venous blood specimen / Unknown Venipuncture / Unknown 10/26/2024 3:02 AM EDT 10/26/2024 3:13 AM EDT Robert Amin MD LAB BLOOD ORDERABLES Final Res ult Performing Organization Address [facility]/ZIP Co de Phone Number [facility] [address] [place], [place] [id number] * (ABNORMAL) Magnesium, Plasma (10/26/2024 3:02 AM EDT) Magnesium, Plasma 1.2(L) 1.9 - 2.4 mg/dL 10/26/2024 3:47 AM EDT [facility] Blood Venous blood specimen / Unknown Venipuncture / Unknown 10/26/2024 3:02 AM EDT 10/26/2024 3:13 AM EDT us Robert Amin MD LAB BLOOD ORDERABLES Final Res ult [facility] [address] [place] [address] * (ABNORMAL) Comprehensive metabolic panel (10/26/2024 3:02 AM EDT) Glucose, Plasma 175(H) 74 - 99 mg/dL 10/26/2024 3:47 AM EDT [facility] BUN, Plasma 9 8 - 23 mg/dL 10/26/2024 3:47 AM EDT [facility] Creatinine, Plasma 0.88 0.60 - 1.10 mg/dL 10/26/2024 3:47 AM EDT [facility] BUN/Creatinine Ratio 10 10/26/2024 3:47 AM EDT [facility] Sodium, Plasma 140 136 - 145 mmol/L 10/26/2024 3:47 AM EDT [facility] Potassium, Plasma 3.6 3.6 - 4.9 mmol/L 10/26/2024 3:47 AM EDT [facility] Chloride, Plasma 100 97 - 107 mmol/L 10/26/2024 3:47 AM EDT [facility] CO2, Plasma 29 22 - 29 mmol/L 10/26/2024 3:47 AM EDT [facility] Anion Gap 11 6 - 16 mmol/L 10/26/2024 3:47 AM EDT [facility] Total Calcium, Plasma 8.1(L) 8.9 - 10.2 mg/dL 10/26/2024 3:47 AM EDT [facility] Total Protein 6.1(L) 6.3 - 7.9 g/dL 10/26/2024 3:47 AM EDT [facility] Albumin, Plasma 2.9(L) 3.5 - 5.2 g/dL 10/26/2024 3:47 AM EDT [facility] AST, Plasma 21 10 - 35 U/L 10/26/2024 3:47 AM EDT [facility] ALT, Plasma 24 10 - 35 U/L 10/26/2024 3:47 AM EDT [facility] Alkaline Phosphatase, Plasma 90 46 - 142 U/L 10/26/2024 3:47 AM EDT [facility] Total Bilirubin, Plasma 0.6 0.2 - 1.1 mg/dL 10/26/2024 3:47 AM EDT [facility] eGFRcr 73.9 mL/min/1.7 3m*2 10/26/2024 3:47 AM EDT [facility] Comment:Reported eGFRcr in m L/min/1.73m2 is based the CKD-EPI 2020 equation that does not use a race coefficient. Blood Venous blood specimen / Unknown Venipuncture / Unknown 10/26/2024 3:02 AM EDT 10/26/2024 3:13 AM EDT us Robert Amin MD LAB BLOOD ORDERABLES Final Res ult [facility] [address] [place] [address] * (ABNORMAL) CBC and Differential (10/26/2024 3:02 AM EDT) WBC Count 5.26 3.70 - 10.30 10*3/uL LAB HEMATOLOGY METHOD 10/26/2024 3:10 AM EDT [facility] RBC Count 2.28(L) 3.90 - 5.20 10*6/uL LAB HEMATOLOGY METHOD 10/26/2024 3:10 AM EDT [facility] HGB 7.0(L) 11.2 - 15.7 g/dL LAB HEMATOLOGY METHOD 10/26/2024 3:10 AM EDT [facility] HCT 22.0(L) 34.0 - 45.0 % LAB HEMATOLOGY METHOD 10/26/2024 3:10 AM EDT [facility] Platelet Count 184 155 - 369 10*3/uL LAB HEMATOLOGY METHOD 10/26/2024 3:10 AM EDT [facility] MCV 97 79 - 98 fL LAB HEMATOLOGY METHOD 10/26/2024 3:10 AM EDT [facility] MCH 30.7 26.0 - 32.0 pg LAB HEMATOLOGY METHOD 10/26/2024 3:10 AM EDT [facility] MCHC 31.8 30.7 - 35.5 g/dL LAB HEMATOLOGY METHOD 10/26/2024 3:10 AM EDT [facility] RDW 15.7(H) 11.5 - 14.5 % LAB HEMATOLOGY METHOD 10/26/2024 3:10 AM EDT [facility] MPV 9.8 8.8 - 12.5 fL LAB HEMATOLOGY METHOD 10/26/2024 3:10 AM EDT [facility] nRBC 2.1(H) <=0.0 per 100 WBCs LAB HEMATOLOGY METHOD 10/26/2024 3:10 AM EDT [facility] Differential Type Automated LAB HEMATOLOGY METHOD 10/26/2024 3:10 AM EDT [facility] Neutrophils % 80 % LAB HEMATOLOGY METHOD 10/26/2024 3:10 AM EDT [facility] Lymphocytes % 9 % LAB HEMATOLOGY METHOD 10/26/2024 3:10 AM EDT [facility] Monocytes % 6 % LAB HEMATOLOGY METHOD 10/26/2024 3:10 AM EDT [facility] Eosinophils % 0 % LAB HEMATOLOGY METHOD 10/26/2024 3:10 AM EDT [facility] Basophils % 0 % LAB HEMATOLOGY METHOD 10/26/2024 3:10 AM EDT [facility] Immature Granulocytes % 5 % LAB HEMATOLOGY METHOD 10/26/2024 3:10 AM EDT [facility] Neutrophils Absolute 4.19 1.60 - 6.10 10*3/uL LAB HEMATOLOGY METHOD 10/26/2024 3:10 AM EDT [facility] Lymphocytes Absolute 0.48(L) 1.20 - 3.90 10*3/uL LAB HEMATOLOGY METHOD 10/26/2024 3:10 AM EDT [facility] Monocytes Absolute 0.31 0.30 - 0.90 10*3/uL LAB HEMATOLOGY METHOD 10/26/2024 3:10 AM EDT [facility] Eosinophils Absolute 0.01 0.00 - 0.50 10*3/uL LAB HEMATOLOGY METHOD 10/26/2024 3:10 AM EDT [facility] Basophils Absolute 0.02 0.00 - 0.10 10*3/uL LAB HEMATOLOGY METHOD 10/26/2024 3:10 AM EDT [facility] Immature Granulocytes Absolute 0.25(H) 0.00 - 0.06 10*3/uL LAB HEMATOLOGY METHOD 10/26/2024 3:10 AM EDT [facility] Blood Venous blood specimen / Unknown Venipuncture / Unknown 10/26/2024 3:02 AM EDT 10/26/2024 3:06 AM EDT Narrative [facility] - 10/26/2024 3:10 AM EDT Therapeutic decision making should be based on absolute values, rather than percentages. us Robert Amin MD LAB BLOOD ORDERABLES Final Res ult Performing Organization Address [facility] Co de Phone Number [facility] [address] [place] [address] * Lactate, venous (10/26/2024 3:02 AM EDT) Pathologist [facility] [place] Lactate, Venous, Whole Blood 0.8 0.5 - 2.2 mmol/L LAB HEMATOLOGY METHOD 10/26/2024 3:15 AM EDT [facility] Blood Venous blood specimen / Unknown Venipuncture / Unknown 10/26/2024 3:02 AM EDT 10/26/2024 3:13 AM EDT us Robert Amin MD LAB BLOOD ORDERABLES Final Res ult Performing Organization Address City/[facility]/ZIP Co de Phone Number [facility] [address] [place] [address] * (ABNORMAL) POCT glucose meter (10/25/2024 9:25 PM EDT) Pathologist [facility] [place] POCT Glucose 170(H) 74 - 99 mg/dL 10/25/2024 9:27 PM EDT [facility] Comment:Accuracy of a [...] Comment 10/25/2024 9:27 PM EDT [facility] Equity Sales Assistant ID Carisa Coleman 10/25/2024 9:27 PM EDT [facility] Device ID [id number] 10/25/2024 9:27 PM EDT [facility] Specimen Type POC Capillary 10/25/2024 9:27 PM EDT [facility] Blood Capillary blood specimen / Unknown 10/25/2024 9:25 PM EDT 10/25/2024 9:27 PM EDT us Robert Amin MD LAB POINT OF CARE TE ST DOCKED DEVICE UNSOLICITED RESULTS Final Result Performing Organization Address City/[facility] Co de Phone Number [facility] [address] [place] [address] * Blood Culture (Aerobic/Anaerobet Set) (10/25/2024 9:10 PM EDT) [facility] Culture No growth at day 5 10/30/2024 10:02 PM EDT [facility] Blood Venous blood specimen / Unknown Venipuncture / Unknown 10/25/2024 9:10 PM EDT 10/25/2024 9:51 PM EDT us Doris Contreras MD LAB MICROBIOLOGY - GENE RAL ORDERABLES Final Result Performing Organization Address City/[facility] Co de Phone Number [facility] [address] [place] [address] * ECG Adult (10/25/2024 8:35 PM EDT) EKG DIAGNOSIS CLASS Borderline Normal MUSE ECG Ventricular Rate 97 BPM MUSE ECG Atrial Rate 97 BPM MUSE ECG NM Interval 128 ms MUSE ECG QRSD Interval 88 ms MUSE ECG QT Interval 334 ms MUSE ECG QTC Interval 424 ms MUSE ECG P Spencer 65 degrees MUSE ECG R Spencer 25 degrees MUSE ECG T Wave Spencer 57 degrees MUSE ECG Diagnosis Normal sinus rhythm MUSE ECG Diagnosis RSR' pattern in V1 & V2 MUSE ECG Diagnosis Otherwise normal ECG MUSE ECG Diagnosis MUSE ECG Diagnosis Confirmed by Jeff Jackson ([id number]) on 10/25/2024 8:38:22 PM MUSE ECG 10/25/2024 8:35 PM EDT 10/25/2024 8:38 PM EDT Robert Amin MD ECG ORDERABLES Final Result MUSE ECG * Methicillin Resistant Staphylococcus aureus (MRSA) by PCR (10/25/2024 6:32 PM EDT) Pathologist [facility] [place] Methicillin Resistant Staphylococcus aureus (MRSA) by PCR Not Detected Not Detected 10/25/2024 8:41 PM EDT [facility] Swab Both anterior nares / Unknown Non-blood Collection / Unknown 10/25/2024 6:32 PM EDT 10/25/2024 6:58 PM EDT Narrative [facility] - 10/25/2024 8:41 PM EDT [...] ORD ERABLES Final Result Performing Organization Address City/[facility] Co de Phone Number [facility] [address] [place] [address] * (ABNORMAL) POCT glucose meter (10/25/2024 4:34 PM EDT) POCT Glucose 102(H) 74 - 99 mg/dL 10/25/2024 4:35 PM EDT [facility] Comment:Accuracy of a glucos e result [...] testing. Comment 10/25/2024 4:35 PM EDT [facility] Equity Sales Assistant ID Sabiha Lobato 025 4:35 PM EDT [facility] Device ID [id number] 10/25/2024 4:35 PM EDT [facility] Specimen Type POC Capillary 10/25/2024 4:35 PM EDT [facility] Blood Capillary blood specimen / Unknown 10/25/2024 4:34 PM EDT 10/25/2024 4:35 PM EDT Robert Amin MD LAB POINT OF CARE TE ST DOCKED DEVICE UNSOLICITED RESULTS Final Result Performing Organization Address [facility] Co de Phone Number [facility] [address] [place] [address] * (ABNORMAL) Troponin T, High Sensitivity, 2 Hour, Plasma (10/25/2024 1:16 PM EDT) [facility] Troponin T, High Sensitivity, 2 Hour 19(H) <14 ng/L 10/25/2024 1:40 PM EDT [facility] Troponin Delta 2 <10 ng/L 10/25/2024 1:40 PM EDT [facility] Troponin Delta Interpretation Not Significant 10/25/2024 1:40 PM EDT [facility] Comment:Not Significant. No acute change in troponin observed between the baseline and 2 hour samples. Blood Venous blood specimen / Unknown Venipuncture / Unknown 10/25/2024 1:16 PM EDT 10/25/2024 1:20 PM EDT Doris Contreras MD LAB BLOOD ORDERABLES Fi nal Result Performing Organization Address City/[facility]/ZIP Co de Phone Number [facility] [address] [place] [address] * CT Angio Pulmonary Embolism (10/25/2024 11:02 [...] Detected Not Detected 10/25/2024 12:13 PM EDT [facility] Swab Nasopharyngeal structure / Unknown Non-blood Collection / Unknown 10/25/2024 10:42 AM EDT 10/25/2024 11:16 AM EDT Narrative [facility] - 10/25/2024 12:13 PM EDT [...] Doris Contreras MD LAB MICROBIOLOGY - GENE [facility] ORDERABLES Final Result [facility] [address] [place] [address] * Nasopharyngeal Respiratory Panel (10/25/2024 10:42 AM EDT) Nasopharyngeal Respiratory PCR Interpretation Not Detected for all analytes Not Detected for all analytes 10/25/2024 3:07 PM EDT [facility] Swab Nasopharyngeal structure / Unknown Non-blood Collection / Unknown 10/25/2024 10:42 AM EDT 10/25/2024 11:16 AM EDT Narrative [facility] - 10/25/2024 3:07 PM EDT [...] Respiratory PCR Panel is performed using the [employer] instrument. This test is FDA approved for use with Nasopharyngeal swabs only. This test is used for clinical purposes. It should not be regarded as investigational or for research. The [facility] Clinical Microbiology Laboratory is certified under the Clinical Laboratory Improvement Amendments of 1988 (CLIA-88) as qualified to perform high complexity clinical laboratory testing. Doris Contreras MD LAB MICROBIOLOGY - GENE RAL ORDERABLES Final Result Performing Organization Address [facility]/ZIP Co de Phone Number [facility] [address] [place] [address] * (ABNORMAL) BNP (10/25/2024 10:28 AM EDT) N-Terminal, PROBNP, Plasma 1,887(H) 0 - 899 pg/mL 10/25/2024 10:59 AM EDT [facility] Blood Venous blood specimen / Unknown Venipuncture / Unknown 10/25/2024 10:28 AM EDT 10/25/2024 10:35 AM EDT Drois Contreras MD LAB BLOOD ORDERABLES Fi nal Result Performing Organization Address [facility] Co de Phone Number [facility] [address] [place] [address] * (ABNORMAL) Troponin now and 120 min (10/25/2024 10:28 AM EDT) Troponin T, High Sensitivity, 0 Hour 21(H) <14 ng/L 10/25/2024 10:59 AM EDT [facility] Blood Venous blood specimen / Unknown Venipuncture / Unknown 10/25/2024 10:28 AM EDT 10/25/2024 10:35 AM EDT Doris Contreras MD LAB BLOOD ORDERABLES Fi nal Result Performing Organization Address [facility]/ZIP Co de Phone Number [facility] [address] [place] [address] * (ABNORMAL) Blood gas panel, venous (10/25/2024 10:28 AM EDT) pH, Venous 7.39 7.32 - 7.43 LAB HEMATOLOGY METHOD 10/25/2024 10:32 AM EDT [facility] pCO2, Venous 50 37 - 52 mmHg LAB HEMATOLOGY METHOD 10/25/2024 10:32 AM EDT [facility] pO2, Venous 47(H) 25 - 40 mmHg LAB HEMATOLOGY METHOD 10/25/2024 10:32 AM EDT [facility] SO2, Measured, Venous 79 65 - 80 % LAB HEMATOLOGY METHOD 10/25/2024 10:32 AM EDT [facility] Base Excess, Venous 4.4(H) -2.0 - 3.0 mmol/L LAB HEMATOLOGY METHOD 10/25/2024 10:32 AM EDT [facility] Bicarbonate, Calculated, Venous 30(H) 22 - 26 mmol/L LAB HEMATOLOGY METHOD 10/25/2024 10:32 AM EDT [facility] Hematocrit, Whole Blood 23.3(L) 34.0 - 45.0 % LAB HEMATOLOGY METHOD 10/25/2024 10:32 AM EDT [facility] Sodium, Whole Blood 142 136 - 145 mmol/L LAB HEMATOLOGY METHOD 10/25/2024 10:32 AM EDT [facility] Potassium, Whole Blood 3.9 3.6 - 4.9 mmol/L LAB HEMATOLOGY METHOD 10/25/2024 10:32 AM EDT [facility] Chloride, Whole Blood 101 97 - 107 mmol/L LAB HEMATOLOGY METHOD 10/25/2024 10:32 AM EDT [facility] Glucose, Whole Blood 200(H) 74 - 99 mg/dL LAB HEMATOLOGY METHOD 10/25/2024 10:32 AM EDT [facility] Lactate, Venous, Whole Blood 2.6(H) 0.5 - 2.2 mmol/L LAB HEMATOLOGY METHOD 10/25/2024 10:32 AM EDT [facility] Ionized Calcium, Whole Blood 4.4(L) 4.6 - 5.1 mg/dL LAB HEMATOLOGY METHOD 10/25/2024 10:32 AM EDT [facility] Blood Venous blood specimen / Unknown Venipuncture / Unknown 10/25/2024 10:28 AM EDT 10/25/2024 10:31 AM EDT us Doris Contreras MD LAB BLOOD ORDERABLES Fi nal Result [facility] [address] [place] [address] * (ABNORMAL) BMP (10/25/2024 10:28 AM EDT) Glucose, Plasma 197(H) 74 - 99 mg/dL 10/25/2024 10:59 AM EDT [facility] BUN, Plasma 13 8 - 23 mg/dL 10/25/2024 10:59 AM EDT [facility] Creatinine, Plasma 0.94 0.60 - 1.10 mg/dL 10/25/2024 10:59 AM EDT [facility] BUN/Creatinine Ratio 14 10/25/2024 10:59 AM EDT [facility] Sodium, Plasma 142 136 - 145 mmol/L 10/25/2024 10:59 AM EDT [facility] Potassium, Plasma 4.0 3.6 - 4.9 mmol/L 10/25/2024 10:59 AM EDT [facility] Chloride, Plasma 102 97 - 107 mmol/L 10/25/2024 10:59 AM EDT [facility] CO2, Plasma 25 22 - 29 mmol/L 10/25/2024 10:59 AM EDT [facility] Anion Gap 15 6 - 16 mmol/L 10/25/2024 10:59 AM EDT [facility] Total Calcium, Plasma 8.2(L) 8.9 - 10.2 mg/dL 10/25/2024 10:59 AM EDT [facility] eGFRcr 68.3 mL/min/1.7 3m*2 10/25/2024 10:59 AM EDT [facility] Comment:Reported eGFRcr in m L/min/1.73m2 is based the CKD-EPI 2020 equation that does not use a race coefficient. Blood Venous blood specimen / Unknown Venipuncture / Unknown 10/25/2024 10:28 AM EDT 10/25/2024 10:35 AM EDT us Doris Contreras MD LAB BLOOD ORDERABLES Fi nal Result [facility] [address] [place] [address] * (ABNORMAL) CBC w/diff (10/25/2024 10:28 AM EDT) Pathologist [facility] WBC Count 6.43 3.70 - 10.30 10*3/uL LAB HEMATOLOGY METHOD 10/25/2024 10:38 AM EDT [facility] RBC Count 2.44(L) 3.90 - 5.20 10*6/uL LAB HEMATOLOGY METHOD 10/25/2024 10:38 AM EDT [facility] HGB 7.4(L) 11.2 - 15.7 g/dL LAB HEMATOLOGY METHOD 10/25/2024 10:38 AM EDT [facility] HCT 23.5(L) 34.0 - 45.0 % LAB HEMATOLOGY METHOD 10/25/2024 10:38 AM EDT [facility] Platelet Count 175 155 - 369 10*3/uL LAB HEMATOLOGY METHOD 10/25/2024 10:38 AM EDT [facility] MCV 96 79 - 98 fL LAB HEMATOLOGY METHOD 10/25/2024 10:38 AM EDT [facility] MCH 30.3 26.0 - 32.0 pg LAB HEMATOLOGY METHOD 10/25/2024 10:38 AM EDT [facility] MCHC 31.5 30.7 - 35.5 g/dL LAB HEMATOLOGY METHOD 10/25/2024 10:38 AM EDT [facility] RDW 15.7(H) 11.5 - 14.5 % LAB HEMATOLOGY METHOD 10/25/2024 10:38 AM EDT [facility] MPV 10.3 8.8 - 12.5 fL LAB HEMATOLOGY METHOD 10/25/2024 10:38 AM EDT [facility] nRBC 1.9(H) <=0.0 per 100 WBCs LAB HEMATOLOGY METHOD 10/25/2024 10:38 AM EDT [facility] Differential Type Automated LAB HEMATOLOGY METHOD 10/25/2024 10:38 AM EDT [facility] Neutrophils % 71 % LAB HEMATOLOGY METHOD 10/25/2024 10:38 AM EDT [facility] Lymphocytes % 16 % LAB HEMATOLOGY METHOD 10/25/2024 10:38 AM EDT [facility] Monocytes % 8 % LAB HEMATOLOGY METHOD 10/25/2024 10:38 AM EDT [facility] Eosinophils % 0 % LAB HEMATOLOGY METHOD 10/25/2024 10:38 AM EDT [facility] Basophils % 1 % LAB HEMATOLOGY METHOD 10/25/2024 10:38 AM EDT [facility] Immature Granulocytes % 4 % LAB HEMATOLOGY METHOD 10/25/2024 10:38 AM EDT [facility] Neutrophils Absolute 4.60 1.60 - 6.10 10*3/uL LAB HEMATOLOGY METHOD 10/25/2024 10:38 AM EDT [facility] Lymphocytes Absolute 1.01(L) 1.20 - 3.90 10*3/uL LAB HEMATOLOGY METHOD 10/25/2024 10:38 AM EDT [facility] Monocytes Absolute 0.49 0.30 - 0.90 10*3/uL LAB HEMATOLOGY METHOD 10/25/2024 10:38 AM EDT [facility] Eosinophils Absolute 0.02 0.00 - 0.50 10*3/uL LAB HEMATOLOGY METHOD 10/25/2024 10:38 AM EDT [facility] Basophils Absolute 0.04 0.00 - 0.10 10*3/uL LAB HEMATOLOGY METHOD 10/25/2024 10:38 AM EDT [facility] Immature Granulocytes Absolute 0.27(H) 0.00 - 0.06 10*3/uL LAB HEMATOLOGY METHOD 10/25/2024 10:38 AM EDT [facility] Blood Venous blood specimen / Unknown Venipuncture / Unknown 10/25/2024 10:28 AM EDT 10/25/2024 10:35 AM EDT Narrative [facility] - 10/25/2024 10:38 AM EDT Therapeutic decision making should be based on absolute values, rather than percentages. us Doris Contreras MD LAB BLOOD ORDERABLES Fi nal Result [facility] [address] [place] [address] * EKG now - STAT (adult) (10/25/2024 10:12 AM EDT) EKG DIAGNOSIS CLASS Borderline Normal MUSE ECG Ventricular Rate 88 BPM MUSE ECG Atrial Rate 88 BPM MUSE ECG NM Interval 130 ms MUSE ECG QRSD Interval 78 ms MUSE ECG QT Interval 350 ms MUSE ECG QTC Interval 423 ms MUSE ECG P Spencer 71 degrees MUSE ECG R Spencer 17 degrees MUSE ECG T Wave Spencer 44 degrees MUSE ECG Diagnosis Normal sinus rhythm MUSE ECG Diagnosis RSR' pattern in V1 and V2 MUSE ECG Diagnosis Otherwise normal ECG MUSE ECG Diagnosis MUSE ECG Diagnosis MUSE ECG Diagnosis Confirmed by Herman Lima ([id number]) on 10/25/2024 1:35:28 PM MUSE ECG 10/25/2024 10:1 2 AM EDT 10/25/2024 1:35 PM EDT us Doris Contreras MD ECG ORDERABLES Final R esult MUSE ECG * [facility] ED POCUS PROCDOC (10/25/2024 9:51 AM EDT) Narrative Doris Contreras MD - 10/25/2024 9:51 AM EDT Doris Contreras MD 10/25/2024 11:00 AM POC Ultrasound - Bedside Performed by: Estuardo Santos MD Authorized by: Doris Conrteras MD Procedure specific details: Limited Thoracic Ultrasound [...] IN CLINIC/BEDSIDE ORDER [place] Final Result * [facility] ED POCUS PROCDOC (10/25/2024 9:51 AM EDT) [...] cardiac ultrasound The images were Saved in [employer]. The study was technically adequate. Comments: n/a [...] 8:43 PM EDT 10 mg nystatin (Mycostatin) [id number] UNIT/ML suspension 500,000 Units 500,000 Units (5 [...] 10/29/2024 12:11 PM EDT 10 mL Tiotropium [place] Monohydrate (Spiriva Respimat) 2.5 MCG/ACT inhaler 2 [...] Provider: Marion Tate)2111 (Given - Provider: Tamara Kmuar RN) 035 (Given - Provider: Tamara Kumar [...] Pierre RN) 0813 (Given - Provider: Flor Pierer RN) 0909 (Given - Provider: Lisa Rankin [...] - Provider: Tamara Kumar RN) nystatin (Mycostatin) [id number] UNIT/ML suspension 500,000 Units 500,000 Units (5 [...] (Given - Provider: Lisa Rankin RN) Tiotropium [place] Monohydrate (Spiriva Respimat) 2.5 MCG/ACT inhaler 2 [...] MARTIN) Linked Groups Order Group 1: Tiotropium [place] Monohydrate (Spiriva Respimat) 2.5 MCG/ACT inhaler 2 [...] 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, ATMOSPHERIC PHYSICS PROFESSOR Panic 10/26/2024 10/31/2024 Assessment Noted Time PHQ-9 Depression Total Score: 0 09/01/19 3:26 PM EDT A fall risk assessment has been complete d for the patient 10/06/2024 2:29 PM EDT A Body Mass Index follow-up plan has been documented for the patient 10/31/2024 4:09 PM EDT documented as of this encounter Care Teams Sharples Machine Operator Relationship Specialty Start Date End Date Laurie Gutierrez MD [address] [place] [id number] PCP - General 12/09/23 Joshua Martínez MD [address] [place] [address] [id number] [place] [address] Consulting Physician Radiation Oncology 09/19/24 Jasmina Smith LPN VALUE-[employer]ED [place] [address] TCM Nurse 10/19/24 11/01/24 documented as of this encounter
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
--- OUTSIDE RECORDS SUMMARY | 2024-10-26 11:30 | XMS_ITS | Encounter Summary ---
Author Organization [facility] Address [address] [place] [address] Care Team Providers Care Dance Hall Hostess Name Role Phone Laurie Gutierrez MD Primary Care Provider [phone] oJshua Martínez MD Unavailable Jasmina Smith HL7 INTERFACE DEVELOPER Unavailable Unavailable Reason for Visit * Auth/Cert (Routine) Specialty Diagnoses / Procedures Referred By Mackenzie carreon Referred To Contact Diagnoses Pneumonia of right upper lobe due to infectious organism recurrent pneumonia Robert Amin MD [address] [place] [address] Phone: tel: fax: PAV A Emergency Department [address] [place] [address] Phone: tel: Referral ID Status Reason Start Date Expiration Date Visits Re quested Visits Authorized [id number] 1 1 Encounter Details Date Type Department Care Team (Latest Contact Info) Description 10/26/2024 11:30 AM EDT - 10/26/2024 11:59 PM EDT Hospital Encounter P[facility] CC Radiation 800 [facility] [id number] [place] [address] Discharge Disposition: Still a Patient [...] any time in the past 12 m [facility], were you homeless or living in a snf (including now)? No 10/14/2024 Humiliation, Afraid, Rape, [...] any time in the past 12 m [facility], were you homeless or living in a snf (including now)? No 10/26/2024 CAGE ASSESSMENT Answer [...] drink first t laurie in the morning (EYE-WELT TRIMMING MACHINE OPERATOR) to steady your nerves or [...] Date of Assessment Author No Risk Indicated 10/26/2024 9:12 AM EDT Daya Chang RN * Question Answer Date of Assessment Author 1. Wish to be (Past 1 Month) No 025 9:12 AM EDT Daya Chang, RN 2. Non-Specific Active Suici radha Thoughts (Past 1 Month) No 10/26/2024 9:12 AM Daya Swift RN 6. Suicidal Behavior (Lifetime) No 5 9:12 AM Daya Swift RN documented as of this encounter Medications [...] se Take 1 tablet by mouth Daily. carvedilol (Coreg) 25 MG tablet Take 1 tablet by mouth 2 times a day. 5 dexamethasone (Decadron) 2 MG tablet Take [...] with meals. 5 metoprolol succinate XL (Toprol-XL) 25 MG [...] 15 mL 3 10/31/2024 5 nystatin (Mycostatin) 647607 UNIT/ML suspension Swish and swallow 5 mL 4 times a day for 39 doses. 195 mL 10/18/2024 5 ondansetron (Zofran) 8 MG tabletIndication s:Extensive [...] Upcoming Encounters Date Type Department Care Team ([facility] st Contact Info) Description 11/29/2024 10:30 AM EDT Clinical Support Pav CC Head, Neck & Respiratory [address] [address] 11/29/2024 11:00 AM EDT Office Visit Pav CC Head, Neck & Respiratory [address] [address] Satnam Colvin MD 800 [facility] Nuria Deg[address] [facility] [address] [place] [address] 11/29/2024 12:30 PM EDT Appointment [facility] 1 [address] [place] [address] 11/30/2024 1:30 PM EDT Appointment [facility] 1 [address] [place] [address] 12/01/2024 2:00 PM EDT Appointment [facility] 1 [address] [place] [address] 12/06/2024 11:40 AM EDT Appointment [facility] CC Radiation [id number] [place] [address] Haven Blum APRN [address] [place] [address] 01/19/2025 9:30 AM EDT Appointment PAV S Radiology [address], 1st [place] [address] 01/19/2025 10:45 AM EDT Office Visit [place] [facility] [address], 1st [place] [address] Abhilash Bangura MD [address] [place] [address] 03/08/2025 1:00 PM EDT Office Visit [facility] [place] [address] [place] [address] Teresita Oconnell MD [address] [place] [address] documented as of this encounter [...] documented as of this encounter Care Teams Dance Hall Hostess Relationship Specialty Start Date End Date Laurie Gutierrez MD [address] [place] [address] PCP - General 12/09/23 Joshua Martínez MD [address] [place] [address] Consulting Physician Radiation Oncology 09/19/24 Jasmina Smith LPN VALUE-[place] [address] [facility] Nurse 10/19/24 11/01/24 documented as of this encounter
--- OUTSIDE RECORDS SUMMARY | 2024-10-26 11:30 | XMS_ITS | Encounter Summary ---
Author Organization [facility] Address [address] [place] [address] Care Team Providers Care Refractory Tile Helper Name Role Phone Laurie Gutierrez MD Primary Care Provider [phone] Joshua Martínez MD Unavailable Jasmina Smith MATERIALS SCIENTIST Unavailable Unavailable Reason for Visit * Auth/Cert (Routine) Specialty Diagnoses / Procedures Referred By Mackenzie carreon Referred To Contact Diagnoses Pneumonia of right upper lobe due to infectious organism recurrent pneumonia Robert Amin MD [address] [place] [address] Phone: tel: fax: P[facility] A Emergency Department [address] [place] [address] Phone: tel: Referral ID Status Reason Start Date Expiration Date Visits Re quested Visits Authorized [id number] 1 1 Encounter Details Date Type Department Care Team (Latest Contact Info) Description 10/26/2024 11:30 AM EDT - 10/26/2024 11:59 PM EDT Hospital Encounter [facility] CC Radiation 800 [facility] [id number] [place] [address] Discharge Disposition: Still a Patient [...] first t laurie in the morning (EYE-CHIEF PASSENGER SHIP STEWARD/STEWARDESS) to steady your nerves or to get [...] 1 tablet by mouth every evening. 5 carvedilol (Coreg) 25 MG tablet Take 1 tablet by mouth 2 times a day. 5 dexamethasone (Decadron) 2 MG tablet Take 1 tablet by mouth every 12 hours. 10 tablet 10/18/2024 5 gabapentin (Neurontin) 600 MG tablet Take 1 tablet by mouth 4 times a day. 5 insulin glargine (Lantus) 100 UNIT/ML injection vial Inject 20 Units under the skin nightly. 5 metoprolol succinate XL (Toprol-XL) 25 MG 24 hr tablet Take 2 tablets by mouth daily. Do not crush or chew. 60 tablet 11 10/25/2024 5 nystatin (Mycostatin) 925344 UNIT/ML suspension Swish and swallow 5 mL [...] Upcoming Encounters Date Type Department Care Team ([facility] st Contact Info) Description 11/29/2024 10:30 AM EDT Clinical Support Pav CC Head, Neck & Respiratory [address] [address] 11/29/2024 11:00 AM EDT Office Visit Pav CC Head, Neck & Respiratory [address] [address] Satnam Colvin MD 800 [facility] [address] [facility] [address] [place] [address] 11/29/2024 12:30 PM EDT Appointment [facility] 1 [address] [place] [address] 11/30/2024 1:30 PM EDT Appointment [facility] 1 [address] [place] [address] 12/01/2024 2:00 PM EDT Appointment [facility] 1 [address] [place] [address] 12/06/2024 11:40 AM EDT Appointment [facility] CC Radiation [id number] [place] [address] Haven Blum APRN [address] [place] [address] 01/19/2025 9:30 AM EDT Appointment [facility] S Radiology [address], 1st [place] [address] 01/19/2025 10:45 AM EDT Office Visit [place] [facility] [address], [address]st [place] [address] Abhilash Bangura MD [address] [place] [address] 03/08/2025 1:00 PM EDT Office Visit [facility] [place] [address] [place] [address] Teresita Oconnell MD [address] [place] [address] documented as of this encounter [...] documented as of this encounter Care Teams Refractory Tile Helper Relationship Specialty Start Date End Date Laurie Gutierrez MD [address] [place] [address] PCP - General 12/09/23 Joshua Martínez MD [address] [place] [address] Consulting Physician Radiation Oncology 09/19/24 Jasmina Smith LPN VALUE-BASED [place] [address] [facility] Nurse 10/19/24 11/01/24 documented as of this encounter
--- OUTSIDE RECORDS SUMMARY | 2024-10-27 11:45 | XMS_ITS | Encounter Summary ---
Author Organization [facility] Address [address] [place] [address] Care Team Providers Care Tinner Helper Name Role Phone Laurie Gutierrez MD Primary Care Provider [phone] Joshua Martínez MD Unavailable Jasmina Smith SUPERVISORY FORESTER Unavailable Unavailable Reason for Visit * Auth/Cert (Routine) Specialty Diagnoses / Procedures Referred By Mackenzie t Referred To Contact Diagnoses Pneumonia of right upper lobe due to infectious organism recurrent pneumonia Robert Amin MD [address] [place] [address] Phone: tel: fax: PAV A Emergency Department [address] [place] [address] Phone: tel: Referral ID Status Reason Start Date Expiration Date Visits Re quested Visits Authorized [id number] 1 1 Encounter Details Date Type Department Care Team (Latest Contact Info) Description 10/27/2024 11:45 AM EDT - 10/27/2024 11:59 PM EDT Hospital Encounter [facility] CC Radiation 800 [facility] [id number] [place] [address] Discharge Disposition: Still a Patient [...] in a half-way (including now)? No 10/14/2024 Humiliation, Afraid, Rape, [...] living in a half-way (including now)? No 10/26/2024 CAGE ASSESSMENT Answer [...] drink first t laurie in the morning (EYE-ECHOCARDIOGRAPH TECH) to steady your nerves or to get [...] Abida Ken 6. Suicidal Behavior (Lifetime) No 5 8:45 PM EDT Abida Ken documented as [...] Do not crush or chew. 60 tablet 10/25/2024 5 metoprolol succinate XL (Toprol-XL) 50 [...] and call provider. 15 mL 3 10/31/2024 nystatin (Mycostatin) 717769 UNIT/ML suspension Swish and swallow 5 mL [...] Pav CC Head, Neck & Respiratory 800 [facility] 2nd [place] [address] 11/29/2024 11:00 AM EDT Office Visit Pav CC Head, Neck & Respiratory 800 [facility], 2nd [place] [address] Satnam Colvin MD 800 [facility] [address] [facility] [address] [place] [address] 11/29/2024 12:30 PM EDT Appointment [facility] 1 [address] [place] [address] 11/30/2024 1:30 PM EDT Appointment [facility] 1 [address] [place] [address] 12/01/2024 2:00 PM EDT Appointment [facility] 1 [address] [place] [address] 12/06/2024 11:40 AM EDT Appointment [facility] Radiation [id number] [place] [address] Haven Blum, SHARDA [address] [place] [address] 01/19/2025 9:30 AM EDT Appointment PAV S Radiology [address], 1st [place] [address] 01/19/2025 10:45 AM EDT Office Visit [place] [facility] [address], 1st [place] [address] Abhilash Bangura MD [address] [place] [address] 03/08/2025 1:00 PM EDT Office Visit [facility] [place] Wenceslao [address] [place] [address] Teresita Oconnell MD [address] [place] [address] documented as of this encounter [...] documented as of this encounter Care Teams Tinner Helper Relationship Specialty Start Date End Date Laurie Gutierrez MD [address] [place] [address] PCP - General 12/09/23 Joshua Martínez MD [address] [place] [address] Consulting Physician Radiation Oncology 09/19/24 Jasmina Smith, KARL VALUE-[place] [address] TCM Nurse 10/19/24 11/01/24 documented as of this encounter
--- OUTSIDE RECORDS SUMMARY | 2024-10-27 11:45 | XMS_ITS | Encounter Summary ---
Author Organization [facility] Address [address] [place] [address] Care Team Providers Care Associate Automation Engineer Name Role Phone Laurie Gutierrez MD Primary Care Provider [phone] Joshua Martínez MD Unavailable Jasmina Smith SIGNALER Unavailable Unavailable Reason for Visit * Auth/Cert (Routine) Specialty Diagnoses / Procedures Referred By Mackenzie t Referred To Contact Diagnoses Pneumonia of right upper lobe due to infectious organism recurrent pneumonia Robert Amin MD [address] [place] [address] Phone: tel: fax: PAV A Emergency Department [address] [place] [address] Phone: tel: Referral ID Status Reason Start Date Expiration Date Visits Re quested Visits Authorized [id number] 1 1 Encounter Details Date Type Department Care Team (Latest Contact Info) Description 10/27/2024 11:45 AM EDT - 10/27/2024 11:59 PM EDT Hospital Encounter P[facility] CC Radiation 800 [facility] [id number] [place] [address] Discharge Disposition: Still a Patient [...] any time in the past 12 m [facility], were you homeless or living in a custodial (including now)? No 10/14/2024 Humiliation, Afraid, Rape, [...] any time in the past 12 m [facility], were you homeless or living in a custodial (including now)? No 10/26/2024 CAGE ASSESSMENT Answer [...] drink first t laurie in the morning (EYE-WINDOWS MIGRATION TECHNICIAN) to steady your nerves or to get [...] 60 tablet 11 10/25/2024 5 nystatin (Mycostatin) 710960 UNIT/ML suspension Swish and swallow 5 mL [...] Pav CC Head, Neck & Respiratory 800 [facility] 2nd [place] [address] 11/29/2024 11:00 AM EDT Office Visit Pav CC Head, Neck & Respiratory 800 [facility], 2nd [place] [address] Satnam Colvin MD 800 [facility] Nuria Deg[address] [address] 11/29/2024 12:30 PM EDT Appointment [facility] 1 [address] [place] [address] 11/30/2024 1:30 PM EDT Appointment [facility] 1 [address] [place] [address] 12/01/2024 2:00 PM EDT Appointment [facility] 1 [address] [place] [address] 12/06/2024 11:40 AM EDT Appointment [facility] CC Radiation [address] [id number] [place] [address] Haven Blum, SHARDA [address] [place] [address] 01/19/2025 9:30 AM EDT Appointment PAV S Radiology [address], 1st [place] [address] 01/19/2025 10:45 AM EDT Office Visit [place] [facility] [address], 1st [place] [address] Abhilash Bangura MD [address] [place] [address] 03/08/2025 1:00 PM EDT Office Visit [facility] [place] Wenceslao [address] [place] [address] Teresita Oconnell MD [address] [place] [address] documented as of this encounter [...] as of this encounter Care Teams Associate Automation Engineer Relationship Specialty Start Date End Date Laurie Gutierrez MD [address] [place] [address] PCP - General 12/09/23 Joshua Martínez MD [address] [place] [address] Consulting Physician Radiation Oncology 09/19/24 Jasmina Smith, KARL VALUE-[place]ED [place] [address] TCM Nurse 10/19/24 11/01/24 documented as of this encounter
--- OUTSIDE RECORDS SUMMARY | 2024-10-28 08:46 | XMS_ITS | Encounter Summary ---
Author Organization [facility] Address [address] [place] [address] Care Team Providers Care Technical Sales Associate Name Role Phone Laurie Gutierrez MD Primary Care Provider [phone] Joshua Martínez MD Unavailable Jasmina Smith DRAFTING TECHNICIAN Unavailable Unavailable Reason for Visit * Auth/Cert (Routine) Specialty Diagnoses / Procedures Referred By Mackenzie carreon Referred To Contact Diagnoses Pneumonia of right upper lobe due to infectious organism recurrent pneumonia Robert Amin MD 800 [place] [address] Phone: tel: fax: PAV A Emergency Department [address] [place] [address] Phone: tel: Referral ID Status Reason Start Date Expiration Date Visits Re quested Visits Authorized [id number] 1 1 Encounter Details Date Type Department Care Team (Latest Contact Info) Description 10/28/2024 8:46 AM EDT - 10/28/2024 11:59 PM EDT Hospital Encounter P[facility] CC Radiation 800 [facility] [id number] [place] [address] Discharge Disposition: Still a Patient [...] any time in the past [address] [facility], were you homeless or living in a [...] any time in the past [address] [facility], were you homeless or living in a [...] drink first t laurie in the morning (EYE-NEWS WRITER) to steady your nerves or to get [...] Date of Assessment Author No Risk Indicated 10/28/2024 7:45 PM EDT Abida Ken * Question Answer Date of Assessment Author 1. Wish to be (Past 1 Month) No 025 7:45 PM EDT Abida Ken 2. Non-Specific Active Suici radha Thoughts (Past 1 Month) No 10/28/2024 7:45 PM EDT Abida Ken 6. Suicidal Behavior (Lifetime) No 5 7:45 PM EDT Abida Ken documented as of [...] provider. 15 mL 3 10/31/2024 nystatin (Mycostatin) 990635 UNIT/ML suspension Swish and swallow 5 mL [...] Upcoming Encounters Date Type Department Care Team ([facility] st Contact Info) Description 11/29/2024 10:30 AM EDT Clinical Support Pav CC Head, Neck & Respiratory 800 [facility] 2nd [place] [address] 11/29/2024 11:00 AM EDT Office Visit Pav CC Head, Neck & Respiratory 800 [facility], 2nd [place] [address] Satnam Colvin MD 800 [facility] [address] [facility] [address] [place] [address] 11/29/2024 12:30 PM EDT Appointment [facility] 1 [address] [place] [address] 11/30/2024 1:30 PM EDT Appointment [facility] 1 [address] [place] [address] 12/01/2024 2:00 PM EDT Appointment [facility] 1 [address] [place] [address] 12/06/2024 11:40 AM EDT Appointment [facility] CC Radiation [address] [id number] [place] [address] Haven Blum, SHARDA [address] [place] [address] 01/19/2025 9:30 AM EDT Appointment P[facility] S Radiology [address], 1st [place] [address] 01/19/2025 10:45 AM EDT Office Visit [place] [facility] [address], 1st [place] [address] Abhilash Bangura MD [address] [place] [address] 03/08/2025 1:00 PM EDT Office Visit [facility] [place] Wenceslao [address] [place] [address] Teresita Oconnell MD [address] [place] [address] documented as of this [...] documented as of this encounter Care Teams Technical Sales Associate Relationship Specialty Start Date End Date Laurie Gutierrez MD [address] [place] [address] PCP - General 12/09/23 Joshua Martínez MD [address] [place] [address] Consulting Physician Radiation Oncology 09/19/24 Jasmina Smith, KARL VALUE-BASED [place] [address] TCM Nurse 10/19/24 11/01/24 documented as of this encounter
--- OUTSIDE RECORDS SUMMARY | 2024-10-28 08:46 | XMS_ITS | Encounter Summary ---
Author Organization [facility] Address [address] [place] [address] Care Team Providers Care Aircraft Parts Assembler Name Role Phone Laurie Gutierrez MD Primary Care Provider [phone] oJshua Martínez MD Unavailable Jasmina Smith NAPPER GRINDER Unavailable Unavailable Reason for Visit * Auth/Cert (Routine) Specialty Diagnoses / Procedures Referred By Mackenzie t Referred To Contact Diagnoses Pneumonia of right upper lobe due to infectious organism recurrent pneumonia Robert Amin MD [address] [place] [address] Phone: tel: fax: PAV A Emergency Department [address] [place] [address] Phone: tel: Referral ID Status Reason Start Date Expiration Date Visits Re quested Visits Authorized [id number] 1 1 Encounter Details Date Type Department Care Team (Latest Contact Info) Description 10/28/2024 8:46 AM EDT - 10/28/2024 11:59 PM EDT Hospital Encounter [facility] CC Radiation [address] [facility] [id number] [place] [address] Discharge Disposition: Still a Patient [...] in the past 12 m [facility], were you homeless or living in a alf (including now)? No 10/14/2024 Humiliation, Afraid, Rape, [...] in the past 12 m [facility], were you homeless or living in a alf (including now)? No 10/26/2024 CAGE ASSESSMENT Answer [...] drink first t laurie in the morning (EYE-ENVIRONMENTAL HEALTH MANAGER) to steady your nerves or to [...] 60 tablet 11 10/25/2024 5 nystatin (Mycostatin) [id number] UNIT/ML suspension Swish and swallow 5 mL [...] Upcoming Encounters Date Type Department Care Team ([facility] st Contact Info) Description 11/29/2024 10:30 AM EDT Clinical Support Pav CC Head, Neck & Respiratory [address] [facility] [address] [place] [address] 11/29/2024 11:00 AM EDT Office Visit Pav CC Head, Neck & Respiratory 800 [facility], [address]nd [place] [address] Satnam Colvin MD [address] [facility] Nuria Degroot [address] [address] 11/29/2024 12:30 PM EDT Appointment [facility] 1 [address] [place] [address] 11/30/2024 1:30 PM EDT Appointment [facility] 1 [address] [place] [address] 12/01/2024 2:00 PM EDT Appointment [facility] 1 [address] [place] [address] 12/06/2024 11:40 AM EDT Appointment [facility] Radiation [address] [id number] [place] [address] Haven Blum, SHARDA [address] [place] [address] 01/19/2025 9:30 AM EDT Appointment PAV S Radiology [address], 1st [place] [address] 01/19/2025 10:45 AM EDT [facility] [place] [facility] [address], 1st [place] [address] Abhilash Bangura MD [address] [place] [address] 03/08/2025 1:00 PM EDT Office Visit [facility] [place] [facility] [address] [place] [address] Teresita Oconnell MD [address] [place] [address] documented as of this encounter [...] documented as of this encounter Care Teams Aircraft Parts Assembler Relationship Specialty Start Date End Date Laurie Gutierrez MD [address] [place] [address] PCP - General 12/09/23 Joshua Martínez MD [address] [place] [address] Consulting Physician Radiation Oncology 09/19/24 Jasmina Smith, KARL VALUE-[place] [address] TCM Nurse 10/19/24 11/01/24 documented as of this encounter
--- OUTSIDE RECORDS SUMMARY | 2024-10-31 08:41 | XMS_ITS | Encounter Summary ---
Author Organization Healthcare Address [address] [place] [address] Care Team Providers Care Supervisor In Circuit Testing Name Role Phone Laurie Gutierrez MD Primary Care Provider [phone] Joshua Martínez MD Unavailable Jasmina Smith LPN Unavailable Unavailable Encounter Details Date Type Department Care Team (Latest Contact Info) Description 10/31/2024 8:41 AM EDT - 10/31/2024 8:44 AM EDT Hospital Encounter [facility] Radiation [id number] [place] [address] Discharge Disposition: Still a Patient 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 [...] [facility] in the [facility], were you homeless or living in a senior living (including now)? No 10/14/2024 Humiliation, Afraid, Rape, [...] in a senior living (including now)? No 10/26/2024 CAGE ASSESSMENT Answer [...] drink first t laurie in the morning (EYE-PHOTOGRAPH TINTER) to steady your nerves or to get [...] No Risk Indicated 10/31/2024 7:00 AM EDT Lisa Romero RN * Question Answer Date of Assessment Author 1. Wish to be (Past 1 Month) No 10/31/2024 7:00 AM EDT Lisa Rankin RN 2. Non-Specific Active Suici radha Thoughts (Past 1 Month) No 10/31/2024 7:00 AM EDT Luís Rankin RN 6. Suicidal Behavior (Lifetime) No 7:00 AM JULIAT Lisa Rankin RN documented as of this encounter Medications [...] times a day with meals. 10/31/2024 5 empagliflozin (Jardiance) 25 MG Take 1 [...] Pav CC Head, Neck & Respiratory 800 [facility], 2nd [place] [address] 11/29/2024 11:00 AM EDT Office Visit Pav CC Head, Neck & Respiratory 800 [facility], 2nd [place] [address] Satnam Colvin MD 800 [facility] N[address] [place] [address] 11/29/2024 12:30 PM EDT Appointment [facility] 1 [address] [place] [address] 11/30/2024 1:30 PM EDT Appointment [facility] 1 [address] [place] [address] 12/01/2024 2:00 PM EDT Appointment [facility] 1 [address] [place] [address] 12/06/2024 11:40 AM EDT Appointment [facility] CC Radiation 800 [facility]. [id number] [place] [address] Haven Blum, MIDDLE SCHOOL FRENCH TEACHER 800 [facility] [address] [place] [address] 01/19/2025 9:30 AM EDT Appointment P[facility] S Radiology [address], 1st [place] [address] 01/19/2025 10:45 AM EDT [facility] [place] [facility] [address], 1st [place] [address] Abhilash Bangura MD [address] [place] [address] 03/08/2025 1:00 PM EDT Office Visit [facility] [place] [facility] [address] [place] [address] Teresita Oconnell MD [address] [place] [address] documented as of this encounter [...] documented as of this encounter Care Teams Supervisor In Circuit Testing Relationship Specialty Start Date End Date Laurie Gutierrez MD [address] [place] [address] PCP - General 12/09/23 Joshua Martínez MD [address] [place] [address] Consulting Physician Radiation Oncology 09/19/24 Jasmina Smith LPN VALUE-[place]ED [place] [address] TCM Nurse 10/19/24 11/01/24 documented as of this encounter
--- OUTSIDE RECORDS SUMMARY | 2024-10-31 08:41 | XMS_ITS | Encounter Summary ---
Author Organization Healthcare Address [address] [place] [address] Care Team Providers Care Ehs Teacher Name Role Phone Laurie Gutierrez MD Primary Care Provider [phone] Joshua Martínez MD Unavailable Jasmina Smith LPN Unavailable Unavailable Encounter Details Date Type Department Care Team (Latest Contact Info) Description 10/31/2024 8:41 AM EDT - 10/31/2024 8:44 AM EDT Hospital Encounter [facility] Radiation [id number] [place] [address] Discharge Disposition: Still a Patient 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 [...] [facility] in the [facility], were you homeless or living in a long term (including now)? No 10/14/2024 Humiliation, Afraid, Rape, [...] in a long term (including now)? No 10/26/2024 CAGE ASSESSMENT Answer [...] drink first t laurie in the morning (EYE-HOB MACHINE OPERATOR) to steady your nerves or [...] MG Take 1 tablet by mouth daily. gabapentin (Neurontin) 600 MG tablet Take 1 tablet by mouth 4 times a day. insulin glargine (Lantus) 100 UNIT/ML injection vial Inject 25 Units under the skin nightly. 10 mL 3 10/31/2024 5 insulin lispro (Admelog, HumaLOG) 100 UNIT/ML injection pen Inject 15 Units under the skin 3 times a day with meals. metoprolol succinate [...] and call provider. 15 mL 3 10/31/2024 ondansetron (Zofran) 8 MG tabletIndication s:Extensive stage [...] Head, Neck & Respiratory 800 [facility], 2nd [place] [address] 11/29/2024 11:00 AM EDT Office Visit Pav CC Head, Neck & Respiratory [address] [facility], 2nd [place] [address] Satnam Colvin MD [address] [facility] Nuria [address] [place] [address] 11/29/2024 12:30 PM EDT Appointment [facility] 1 [address] [place] [address] 11/30/2024 1:30 PM EDT Appointment [facility] 1 [address] [place] [address] 12/01/2024 2:00 PM EDT Appointment [facility] 1 [address] [place] [address] 12/06/2024 11:40 AM EDT Appointment [facility] CC Radiation [address] [facility]. [id number] [place] [address] Haven Blum, BUDGET ENGINEER 800 [facility] [address] [place] [address] 01/19/2025 9:30 AM EDT Appointment P[facility] S Radiology [address], 1st [place] [address] 01/19/2025 10:45 AM EDT [facility] Visit [place] [facility] [address], 1st [place] [address] Abhilash Bangura MD [address] [place] [address] 03/08/2025 1:00 PM EDT Office Visit [facility] [place] [facility] [address] [place] [address] Teresita Oconnell MD [address] [place] [address] documented as of this encounter [...] documented as of this encounter Care Teams Ehs Teacher Relationship Specialty Start Date End Date Laurie Gutierrez MD [address] [place] [address] PCP - General 12/09/23 Joshua Martínez MD [address] [place] [address] Consulting Physician Radiation Oncology 09/19/24 Jasmina Smith LPN VALUE-BASED [place] [address] TCM Nurse 10/19/24 11/01/24 documented as of this encounter
--- OUTSIDE RECORDS SUMMARY | 2024-10-31 08:45 | XMS_ITS | Encounter Summary ---
Author Organization Healthcare Address [address] [place] [address] Care Team Providers Care National Sales Name Role Phone Laurie Gutierrez MD Primary Care Provider [phone] Joshua Martínez MD Unavailable Jasmina Smith LPN Unavailable Unavailable Encounter Details Date Type Department Care Team (Latest Contact Info) Description 10/31/2024 8:45 AM EDT - 10/31/2024 11:59 PM EDT Hospital Encounter [facility] CC Radiation [id number] [place] [address] Discharge Disposition: Still a Patient 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 [...] [facility] time in the [facility] m [facility], were you homeless or living in a long-term (including now)? No 10/14/2024 Humiliation, Afraid, Rape, [...] living in a long-term (including now)? No 10/26/2024 CAGE ASSESSMENT Answer [...] first t laurie in the morning (EYE-LAND LEASING EXAMINER) to steady your nerves or to get [...] 800 [facility], 2nd [place] [address] 11/29/2024 11:00 AM EDT Office Visit Pav CC Head, Neck & Respiratory 800 [facility], 2nd [place] [address] Satnam Colvin MD 800 [facility] Nuria Degroot [address] [place] [address] 11/29/2024 12:30 PM EDT Appointment [facility] 1 [address] [place] [address] 11/30/2024 1:30 PM EDT Appointment [facility] 1 [address] [place] [address] 12/01/2024 2:00 PM EDT Appointment [facility] 1 [address] [place] [address] 12/06/2024 11:40 AM EDT Appointment [facility] CC Radiation 800 [facility]. [id number] [place] [address] Haven Blum, LABORER [employer]ARM 800 [facility] [address] [place] [address] 01/19/2025 9:30 AM EDT Appointment PAV S Radiology [address], 1st [place] [address] 01/19/2025 10:45 AM EDT Office Visit [place] [facility] [address], 1st [place] [address] Abhilash Bangura MD [address] [place] [address] 03/08/2025 1:00 PM EDT Office Visit [facility] [place] [facility] 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, CARDIOPULMONARY SUPERVISOR Panic 10/26/2024 10/31/2024 Assessment Noted Time PHQ-9 Depression Total Score: 0 09/01/19 3:26 PM EDT A fall risk assessment has been complete d for the patient 10/06/2024 2:29 PM EDT A Body Mass Index follow-up plan has been documented for the patient 10/31/2024 4:09 PM EDT documented as of this encounter Care Teams National Sales Relationship Specialty Start Date End Date Laurie Gutierrez MD [address] [place] [address] PCP - General 12/09/23 Joshua Martínez MD [address] [place] [address] Consulting Physician Radiation Oncology 09/19/24 Jasmina Smith LPN VALUE-BASED [place] [address] TCM Nurse 10/19/24 11/01/24 documented as of this encounter
--- OUTSIDE RECORDS SUMMARY | 2024-10-31 08:45 | XMS_ITS | Encounter Summary ---
Author Organization Healthcare Address [address] [place] [address] Care Team Providers Care Gas Examiner Name Role Phone Laurie Gutierrez MD Primary Care Provider [phone] Joshua Martínez MD Unavailable Jasmina Smith LPN Unavailable Unavailable Encounter Details Date Type Department Care Team (Latest Contact Info) Description 10/31/2024 8:45 AM EDT - 10/31/2024 11:59 PM EDT Hospital Encounter [facility] CC Radiation [address] [id number] [place] [address] Discharge Disposition: Still a Patient 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 [...] any time in the [facility] 12 m [facility], were you homeless or living in a longterm (including now)? No 10/14/2024 Humiliation, Afraid, Rape, [...] in the past 12 m [facility], were you homeless or living in a longterm (including now)? No 10/26/2024 CAGE ASSESSMENT Answer [...] drink first t laurie in the morning (EYE-EGG SEPARATOR) to steady your nerves or to get [...] CC Head, Neck & Respiratory 800 [facility], 2nd [place] [address] 11/29/2024 11:00 AM EDT Office Visit Pav CC Head, Neck & Respiratory [address] [facility], 2nd [place] [address] Satnam Colvin MD [address] [facility] Nuria Deg[address] [place] [address] 11/29/2024 12:30 PM EDT Appointment [facility] 1 [address] [place] [address] 11/30/2024 1:30 PM EDT Appointment [facility] 1 [address] [place] [address] 12/01/2024 2:00 PM EDT Appointment [facility] 1 [address] [place] [address] 12/06/2024 11:40 AM EDT Appointment [facility] CC Radiation [address] [facility]. [id number] [place] [address] Haven Blum, HULL LINE CREW MEMBER 800 [facility] [address] [place] [address] 01/19/2025 9:30 AM EDT Appointment P[facility] S Radiology [address], 1st [place] [address] 01/19/2025 10:45 AM EDT [facility] [place] [facility] [address], 1st [place] [address] Abhilash Bangura MD [address] [place] [address] 03/08/2025 1:00 PM EDT Office Visit [facility] [place] [facility] 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, DESIGN ENGINEERING INTERN Panic 10/26/2024 10/31/2024 Assessment Noted Time PHQ-9 Depression Total Score: 0 09/01/19 3:26 PM EDT A fall risk assessment has been complete d for the patient 10/06/2024 2:29 PM EDT A Body Mass Index follow-up plan has been documented for the patient 10/31/2024 4:09 PM EDT documented as of this encounter Care Teams Gas Examiner Relationship Specialty Start Date End Date Laurie Gutierrez MD [address] [place] [address] PCP - General 12/09/23 Joshua Martínez MD [address] [place] [address] Consulting Physician Radiation Oncology 09/19/24 Jasmina Smith LPN VALUE-BASED [place] [address] TCM Nurse 10/19/24 11/01/24 documented as of this encounter
--- OUTSIDE RECORDS SUMMARY | 2024-11-01 10:16 | XMS_ITS | Encounter Summary ---
Author Organization Healthcare Address [address] [place] [address] Care Team Providers Care Certified Surgical Tech/First Assistant Name Role Phone Laurie Gutierrez MD Primary Care Provider [phone] Joshua Martínez MD Unavailable Jasmina Smith LPN Unavailable Unavailable Encounter Details Date Type Department Care Team (Latest Contact Info) Description 11/01/2024 10:16 AM EDT - 11/01/2024 10:57 AM EDT Hospital Encounter [facility] CC Radiation [id number] [place] [address] Discharge Disposition: Still a Patient 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 [...] time in the past 12 m [facility], were you homeless or living in a [...] drink first t laurie in the morning (EYE-COMPUTER SYSTEMS INTEGRATOR) to steady your nerves or to get rid of a hangover? 0 10/27/2024 CAGE Questionnaire Score 0 025 Utilities Answer Date Recorded In the past 12 months has e [employer], gas, oil, or water company threatened to [...] CC Head, Neck & Respiratory 800 [facility], 2nd [place] [address] 11/29/2024 11:00 AM EDT Office Visit Pav CC Head, Neck & Respiratory 800 [facility], 2nd [place] [address] Satnam Colvin MD 800 [facility] Nuria Brownson [facility] [address] [place] [address] 11/29/2024 12:30 PM EDT Appointment [facility] 1 [address] [place] [address] 11/30/2024 1:30 PM EDT Appointment [facility] 1 [address] [place] [address] 12/01/2024 2:00 PM EDT Appointment [facility] 1 [address] [place] [address] 12/06/2024 11:40 AM EDT Appointment [facility] CC Radiation [id number] [place] [address] Haven Blum, COMMERCIAL FOOD INSTRUCTOR 800 [facility] [address] [place] [address] 01/19/2025 9:30 AM EDT Appointment P[facility] S Radiology [address], 1st [place] [address] 01/19/2025 10:45 AM EDT [facility] Visit [facility] [address], 1st [place] [address] Abhilash Bangura MD [address] [place] [address] 03/08/2025 1:00 PM EDT Office Visit [facility] 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, ENTERTAINMENT CENTRE MANAGER Panic 10/26/2024 10/31/2024 Assessment Noted Time PHQ-9 Depression Total Score: 0 09/01/19 25 3:26 PM EDT A fall risk assessment has been complete d for the patient 10/06/2024 2:29 PM EDT A Body Mass Index follow-up plan has been documented for the patient 10/31/2024 4:09 PM EDT documented as of this encounter Care Teams Certified Surgical Tech/First Assistant Relationship Specialty Start Date End Date Laurie Gutierrez MD [address] [place], [place] [phone] PCP - General 12/09/23 Joshua Martínez MD [address] [place] [address] Consulting Physician Radiation Oncology 09/19/24 Jasmina Smith LPN VALUE-[place]ED [place] [address] TCM Nurse 10/19/24 11/01/24 documented as of this encounter
--- OUTSIDE RECORDS SUMMARY | 2024-11-01 10:16 | XMS_ITS | Encounter Summary ---
Author Organization Healthcare Address [address] [place] [address] Care Team Providers Care Occupational Therapy Aides Teacher Name Role Phone Laurie Gutierrez MD Primary Care Provider [phone] Joshua Martínez MD Unavailable Jasmina Smith LPN Unavailable Unavailable Encounter Details Date Type Department Care Team (Latest Contact Info) Description 11/01/2024 10:16 AM EDT - 11/01/2024 10:57 AM EDT Hospital Encounter [facility] CC Radiation [address] [id number] [place] [address] Discharge Disposition: Still a Patient 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 [...] any time in the past 12 m [facility], were you homeless or living in a [...] time in the past 12 m [facility], were you homeless or living [...] drink first t laurie in the morning (EYE-FINE HAIRER) to steady your nerves or to get rid of a hangover? 0 10/27/2024 CAGE Questionnaire Score 0 025 Utilities Answer Date Recorded In the past 12 months has e [employer], gas, oil, or water company threatened to [...] Respiratory 800 [facility], 2nd [place] [address] 11/29/2024 11:00 AM EDT Office Visit Pav CC Head, Neck & Respiratory 800 [facility], 2nd [place] [address] Satnam Colvin MD 800 [facility] Nurai Brownson [facility] [address] [place] [address] 11/29/2024 12:30 PM EDT Appointment [facility] 1 [address] [place] [address] 11/30/2024 1:30 PM EDT Appointment [facility] 1 [address] [place] [address] 12/01/2024 2:00 PM EDT Appointment [facility] 1 [address] [place] [address] 12/06/2024 11:40 AM EDT Appointment [facility] CC Radiation [address] [id number] [place] [address] Haven Blum, INCIDENT ANALYST 800 [facility] [address] [place] [address] 01/19/2025 9:30 AM EDT Appointment P[facility] S Radiology [address], 1st [place] [address] 01/19/2025 10:45 AM EDT [facility] [address], 1st [place] [address] Abhilash Bangura MD [address] [place] [address] 03/08/2025 1:00 PM EDT Office Visit [facility] [place] [facility] 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, FIELD SUPPORT REP Panic 10/26/2024 10/31/2024 Assessment Noted Time PHQ-9 Depression Total Score: 0 09/01/19 25 3:26 PM EDT A fall risk assessment has been complete d for the patient 10/06/2024 2:29 PM EDT A Body Mass Index follow-up plan has been documented for the patient 10/31/2024 4:09 PM EDT documented as of this encounter Care Teams Occupational Therapy Aides Teacher Relationship Specialty Start Date End Date Laurie Gutierrez MD [address] [place], [place] [phone] PCP - General 12/09/23 Joshua Martínez MD [address] [place] [address] Consulting Physician Radiation Oncology 09/19/24 Jasmina Smith LPN VALUE-[place]ED [place] [address] TCM Nurse 10/19/24 11/01/24 documented as of this encounter
--- OUTSIDE RECORDS SUMMARY | 2024-11-01 10:58 | XMS_ITS | Encounter Summary ---
Author Organization [facility] Address [address] [place] [address] Care Team Providers Care Loading And Unloading Supervisor Name Role Phone Laurie Gutierrez MD Primary Care Provider [phone] Joshua Martínez MD Unavailable Jasmina Smith BUSINESS PROCESS MODELER Unavailable Unavailable Reason for Visit * Reason Comments OTV Encounter Details Date Type Department Care Team (Latest Contact Info) Description 11/01/2024 10:58 AM EDT - 11/01/2024 11:59 PM EDT Hospital Encounter [facility] CC Radiation 800 [facility]. [id number] [place] [address] Garrison Marie MD [address] [place] [address] 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CMS/HCC) (Primary Dx) Discharge Disposition: Still a Patient 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 [...] drink first t laurie in the morning (EYE-ANALYST FOOD AND BEVERAGE) to steady your nerves or to get [...] Sign Reading Time Taken Comments Blood Pressure 110/65 11/01/2024 11:03 AM EDT Pulse 78 11/01/2024 11:03 AM EDT Temperature 36.5 C (97.7 F) 11/01/2024 11:03 AM EDT Respiratory Rate 16 11/01/2024 11:03 AM EDT Oxygen Saturation 95% 11/01/2024 11:03 AM EDT Inhaled Oxygen Concentration - - Weight 116 kg (255 lb 15.3 oz) 11/01/2024 11:03 AM EDT Height - - Body Mass Index 39.7 10/27/2024 9:57 PM EDT documented in this encounter Medications [...] tablet Take 1 tablet by mouth daily. estradiol (Estrace) 0.1 MG/GM vaginal cream Insert 2 g into the vagina daily. ferrous sulfate 325 (65 Fe) MG [...] call provider. 15 mL 3 10/31/2024 5 omeprazole (PriLOSEC) [address] capsule Take 1 capsule by mouth daily. 5 ondansetron (Zofran) 8 MG tabletIndication s:Extensive [...] as of this encounter Miscellaneous Notes * Assessment & Plan Note - Sumit Liu MD - 11/01/2024 11:30 AM EDTAssociated Problem(s): 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CMS/HCC) * Progress Notes - Sumit Liu MD - 11/01/2024 11:30 AM EDT Patient Name: Teresa Rivera Date of : 1960 63 y.o. Encounter Date: 11/01/2024 RESEARCH STUDY PATIENT: Yes: [] No: [x] Treatment Diagnosis: Cancer Staging No matching staging information was found for the patient. 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CMS/HCC) Yes Vital Signs for this encounter: BSA: 2.35 meters squared Visit Vitals BP 110/65 Pulse 78 Temp 36.5 ??C (97.7 ??F) Resp 16 Wt 116 kg (255 lb 15.3 oz) SpO2 95% BMI 39.70 kg/m?? OB Status Postmenopausal Smoking Status Former BSA 2.35 m?? Physician Notes: [x] Reviewed chart and dosimetry - Current Dose - *see signed printed weekly treatment record [x] Reviewed treatment setup - Anticipated Dose - *see signed printed weekly treatment record [x] Reviewed port films or images - Examination of patient for evaluation and progress of treatment Symptomatic; fully ambulatory Subjective Patient reports transient headaches but otherwise doing well. No new symptoms. Assessment/Plan Assessment & Plan 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CMS/HCC) - Continue RT as planned SBRT: Midline Brain Treatment Period Fraction Dose Fractions Total Dose Course C1 10/24/2024-11/01/2024 (days elapsed: 8) Plans Planned Brain WBRT_PTV [[id number]] 10/24/2024-11/01/2024 300 cGy 3,000 cGy Reference Points Delivered Brain WBRT 10/24/2024-11/01/2024 -- -- 2,100 cGy Resident signature: Physician signature: MD GIGI Landry P[facility] CC RADIATION 800 [facility] [address] Cosigned by Garrison Marie MD at 11/01/2024 12:55 PM EDT Associated attestation - Garrison Marie MD - 11/01/2024 12:55 PM EDT I saw and evaluated the patient with the resident/fellow. I discussed the case with the resident/fellow and agree with the findings and plan as documented. documented in this encounter Plan of Treatment Upcoming Encounters Date Type Department Care Team ([facility] Contact Info) Description 11/29/2024 10:30 AM EDT Clinical Support Pav CC Head, Neck & Respiratory 800 [facility], 2nd [place] [address] 11/29/2024 11:00 AM EDT Office Visit Pav CC Head, Neck & Respiratory 800 [facility], [address] [place] [address] Satnam Colvin MD 800 [facility] Nuria Degroot [facility] [address] [place] [address] 11/29/2024 12:30 PM EDT Appointment [facility] 1 [address] [place] [address] 11/30/2024 1:30 PM EDT Appointment [facility] 1 [address] [place] [address] 12/01/2024 2:00 PM EDT Appointment [facility] [address] [place] [address] 12/06/2024 11:40 AM EDT Appointment P[facility] CC Radiation [id number] [place] [address] Haven Blum, [employer] SYSTEMS ADMINISTRATOR [address] [place] [address] 01/19/2025 9:30 AM EDT Appointment PAV S Radiology [address], 1st [place] [address] 01/19/2025 10:45 AM EDT Office Visit [place] [facility] [address], 1st [place] [address] Abhilash Bangura MD [address] [place] [address] 03/08/2025 1:00 PM EDT Office Visit [facility] [place] [facility] 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, CAN CLOSING MACHINE OPERATOR Panic 10/26/2024 10/31/2024 Assessment Noted Time PHQ-9 Depression Total Score: 0 09/01/19 25 3:26 PM EDT A fall risk assessment has been complete d for the patient 10/06/2024 2:29 PM EDT A Body Mass Index follow-up plan has been documented for the patient 10/31/2024 4:09 PM EDT documented as of this encounter Care Teams Loading And Unloading Supervisor Relationship Specialty Start Date End Date Laurie Gutierrez MD [address] [place] [address] PCP - General 12/09/23 Joshua Martínez MD [id number] [place] [address] Consulting Physician Radiation Oncology 09/19/24 Jasmina Smith LPN VALUE-BASED [place] [address] TCM Nurse 10/19/24 11/01/24 documented as of this encounter
--- OUTSIDE RECORDS SUMMARY | 2024-11-01 10:58 | XMS_ITS | Encounter Summary ---
Author Organization [facility] Address [address] [place] [address] Care Team Providers Care Workers Compensation Legal Secretary Name Role Phone Laurie Gutierrez MD Primary Care Provider [phone] Joshua Martínez MD Unavailable Jasmina Smith CUTTER GAS Unavailable Unavailable Reason for Visit * Reason Comments OTV Encounter Details Date Type Department Care Team (Latest Contact Info) Description 11/01/2024 10:58 AM EDT - 11/01/2024 11:59 PM EDT Hospital Encounter [facility] CC Radiation 800 [facility]. [id number] [place] [address] Garrison Marie MD [address] [place] [address] 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CMS/HCC) (Primary Dx) Discharge [...] drink first t laurie in the morning (EYE-LUMBER TALLIER) to steady your nerves or to get [...] by mouth 4 times a day. 5 omeprazole (PriLOSEC) [address] capsule [...] MD GIGI Landry PAV CC RADIATION 800 [facility] [address] Cosigned by Garrison Marie MD at 11/01/2024 12:55 PM EDT Associated attestation - Garrison Marie MD - 11/01/2024 12:55 PM EDT I saw and evaluated the patient with the resident/fellow. I discussed the case with the resident/fellow and agree with the findings and plan as documented. documented in this encounter Plan of Treatment Upcoming Encounters Date Type Department Care Team ([facility] Contact Info) Description 11/29/2024 10:30 AM EDT Clinical Support Pav CC Head, Neck & Respiratory 800 [facility], 2nd [place] [address] 11/29/2024 11:00 AM EDT Office Visit Pav CC Head, Neck & Respiratory 800 [facility], [address] [place] [address] Satnam Colvin MD 800 [facility] Nuria Degroot [facility] [address] [place] [address] 11/29/2024 12:30 PM EDT Appointment [facility] 1 [address] [place] [address] 11/30/2024 1:30 PM EDT Appointment [facility] 1 [address] [place] [address] 12/01/2024 2:00 PM EDT Appointment [facility] [address] [place] [address] 12/06/2024 11:40 AM EDT Appointment P[facility] CC Radiation [id number] [place] [address] Haven Blum, POWDERED SUGAR SUPERVISOR [address] [place] [address] 01/19/2025 9:30 AM EDT Appointment PAV S Radiology [address], 1st [place] [address] 01/19/2025 10:45 AM EDT Office Visit [place] [facility] [address], 1st [place] [address] Abhilash Bangura MD [address] [place] [address] 03/08/2025 1:00 PM EDT Office Visit [facility] [place] [facility] 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, DIPLOMATIC COURIER Panic 10/26/2024 10/31/2024 Assessment Noted Time PHQ-9 Depression Total Score: 0 09/01/19 25 3:26 PM EDT A fall risk assessment has been complete d for the patient 10/06/2024 2:29 PM EDT A Body Mass Index follow-up plan has been documented for the patient 10/31/2024 4:09 PM EDT documented as of this encounter Care Teams Workers Compensation Legal Secretary Relationship Specialty Start Date End Date Laurie Gutierrez MD [address] [place] [address] PCP - General 12/09/23 Joshua Martínez MD [id number] [place] [address] Consulting Physician Radiation Oncology 09/19/24 Jasmina Smith LPN VALUE-BASED [place] [address] TCM Nurse 10/19/24 11/01/24 documented as of this encounter
--- OUTSIDE RECORDS SUMMARY | 2024-11-02 10:54 | XMS_ITS | Encounter Summary ---
Author Organization Healthcare Address [address] [place] [address] Care Team Providers Care Recruitment Assistant Name Role Phone Laurie Gutierrez MD Primary Care Provider [phone] Joshua Martínez MD Unavailable Encounter Details Date Type Department Care Team (Latest Contact Info) Description 11/02/2024 10:54 AM EDT - 11/02/2024 11:59 PM EDT Hospital Encounter PAV CC Radiation [address] [id number] [place] [address] Discharge Disposition: Still a Patient 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 [...] any time in the past 12 m [facility], were you homeless or living [...] any time in the past 12 m [facility], were you homeless or living [...] drink first t laurie in the morning (EYE-LONG LINES OPERATOR) to steady your nerves or to get rid of a hangover? 0 10/27/2024 CAGE Questionnaire Score 0 025 Utilities Answer Date Recorded In the past 12 months has th e [employer], gas, oil, or water company threatened to [...] CC Head, Neck & Respiratory 800 [facility], 2nd [place] [address] 11/29/2024 11:00 AM EDT Office Visit Pav CC Head, Neck & Respiratory 800 [facility], 2nd [place] [address] Satnam Colvin MD 800 [facility] Nuria Degroot [address] [place] [address] 11/29/2024 12:30 PM EDT Appointment [facility] 1 [address] [place] [address] 11/30/2024 1:30 PM EDT Appointment [facility] Infusion Clinic 1 [address] [place] [address] 12/01/2024 2:00 PM EDT Appointment [facility] 1 [address] [place] [address] 12/06/2024 11:40 AM EDT Appointment PAV CC Radiation [address] [facility]. [id number] [place] [address] Haven Blum, BALANCE WHEEL SCREW HOLE TAPPER [address] [facility] [address] [place] [address] 01/19/2025 9:30 AM EDT Appointment PAV S Radiology [address], 1st [place] [address] 01/19/2025 10:45 AM EDT Office Visit [place] [facility] [address], 1st [place] [address] Abhilash Bangura MD [address] [place] [address] 03/08/2025 1:00 PM EDT Office Visit [facility] [place] [facility]enceslao 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, INSIDE FINISHER Panic 10/26/2024 10/31/2024 Assessment Noted Time PHQ-9 Depression Total Score: 0 09/01/19 25 3:26 PM EDT A fall risk assessment has been complete d for the patient 10/06/2024 2:29 PM EDT A Body Mass Index follow-up plan has been documented for the patient 10/31/2024 4:09 PM EDT documented as of this encounter Care Teams Recruitment Assistant Relationship Specialty Start Date End Date Laurie Gutierrez MD [address] [place] [address] PCP - General 12/09/23 Joshua Martínez MD [address] [place] [phone] Consulting Physician Radiation Oncology 09/19/24 documented as of this encounter
--- OUTSIDE RECORDS SUMMARY | 2024-11-02 10:54 | XMS_ITS | Encounter Summary ---
Author Organization Healthcare Address [address] [place] [address] Care Team Providers Care Equipment Worker Name Role Phone Laurie Gutierrez MD Primary Care Provider [phone] Joshua Martínez MD Unavailable Encounter Details Date Type Department Care Team (Latest Contact Info) Description 11/02/2024 10:54 AM EDT - 11/02/2024 11:59 PM EDT Hospital Encounter PAV CC Radiation [id number] [place] [address] Discharge Disposition: Still a Patient 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 [...] in a prison (including now)? No 10/14/2024 Humiliation, Afraid, Rape, [...] living in a prison (including now)? No 10/26/2024 CAGE ASSESSMENT Answer [...] drink first t laurie in the morning (EYE-ASSOCIATE COUNSEL) to steady your nerves or to get rid of a hangover? 0 10/27/2024 CAGE Questionnaire Score 0 025 Utilities Answer Date Recorded In the past 12 months has th e [employer], gas, oil, or water company threatened to [...] skin 3 times a day with meals. 07/08/202 5 metoprolol succinate XL (Toprol-XL) 50 MG 24 hr tablet Take 1 tablet by mouth daily. Do not crush or chew. 90 tablet 11/01/2024 NovoLOG FLEXPEN 100 UNIT/ML injection pen Inject [...] Neck & Respiratory 800 [facility], 2nd [place] [address] 11/29/2024 11:00 AM EDT Office Visit Pav CC Head, Neck & Respiratory 800 [facility], 2nd [place] [address] Satnam Colvin MD 800 [facility] Nuria Degroot [address] [place] [address] 11/29/2024 12:30 PM EDT Appointment [facility] 1 [address] [place] [address] 11/30/2024 1:30 PM EDT Appointment [facility] Infusion Clinic 1 [address] [place] [address] 12/01/2024 2:00 PM EDT Appointment [facility] 1 [address] [place] [address] 12/06/2024 11:40 AM EDT Appointment PAV CC Radiation 800 [facility]. [id number] [place] [address] Haven Blum, BUILDING ARCHITECTURAL DESIGNER [address] [facility] [address] [place] [address] 01/19/2025 9:30 AM EDT Appointment PAV S Radiology [address], 1st [place] [address] 01/19/2025 10:45 AM EDT Office Visit [place] [facility] [address], 1st [place] [address] Abhilash Bangura MD [address] [place] [address] 03/08/2025 1:00 PM EDT Office Visit [facility] [place] Wenceslao 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, FRONT END SPECIALIST Panic 10/26/2024 10/31/2024 Assessment Noted Time PHQ-9 Depression Total Score: 0 09/01/19 25 3:26 PM EDT A fall risk assessment has been complete d for the patient 10/06/2024 2:29 PM EDT A Body Mass Index follow-up plan has been documented for the patient 10/31/2024 4:09 PM EDT documented as of this encounter Care Teams Equipment Worker Relationship Specialty Start Date End Date Laurie Gutierrez MD [address] [place] [address] PCP - General 12/09/23 Joshua Martínez MD [address] [place] [phone] Consulting Physician Radiation Oncology 09/19/24 documented as of this encounter
--- OUTSIDE RECORDS SUMMARY | 2024-11-04 10:49 | XMS_ITS | Encounter Summary ---
Author Organization Healthcare Address [address] [place] [address] Care Team Providers Care Bonbon Dipper Name Role Phone Laurie Gutierrez MD Primary Care Provider [phone] Joshua Martínez MD Unavailable Encounter Details Date Type Department Care Team (Latest Contact Info) Description 11/04/2024 10:49 AM EDT - 11/04/2024 11:59 PM EDT Hospital Encounter [facility] [address] [id number] [place] [address] Discharge Disposition: Still a Patient 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 [...] drink first t laurie in the morning (EYE-ART OBJECTS REPAIRER) to steady your nerves or to get rid of a hangover? 0 10/27/2024 CAGE Questionnaire Score 0 025 Utilities Answer Date Recorded In the past 12 months has th e [employer], gas, oil, or water company threatened to [...] [facility] Head[facility] Neck [facility] Respiratory 800 [facility], 2nd [place] [address] 11/29/2024 11:00 AM EDT Office Visit [facility] 800 [facility], 2nd [place] [address] Satnam Colvin MD 800 [facility] Nuria Degroot [address] [place] [address] 11/29/2024 12:30 PM EDT Appointment [facility] 1 [address] [place] [address] 11/30/2024 1:30 PM EDT Appointment [facility] Infusion Clinic 1 [address] [place] [address] 12/01/2024 2:00 PM EDT Appointment [facility] 1 [address] [place] [address] 12/06/2024 11:40 AM EDT Appointment [facility] Rad[facility] 800 [facility]. [id number] [place] [address] Haven Blum, OVEN TENDER BAGELS 800 [facility] [address] [place] [address] 01/19/2025 9:30 AM EDT Appointment [facility] S Radiology [address], 1st [place] [address] 01/19/2025 10:45 AM EDT [facility] Visit [facility] [address], 1st [place] [address] Abhilash Bangura MD [address] [place] [address] 03/08/2025 1:00 PM EDT Office Visit [facility] [place] [facility] 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, RUBBER STAMP MAKER Panic 10/26/2024 10/31/2024 Assessment Noted Time PHQ-9 Depression Total Score: 0 09/01/19 25 3:26 PM EDT A fall risk assessment has been complete d for the patient 10/06/2024 2:29 PM EDT A Body Mass Index follow-up plan has been documented for the patient 10/31/2024 4:09 PM EDT documented as of this encounter Care Teams Bonbon Dipper Relationship Specialty Start Date End Date Laurie Gutierrez MD [address] [place] [address] PCP - General 12/09/23 Joshua Martínez MD [address] [place] [phone] Consulting Physician Radiation Oncology 09/19/24 documented as of this encounter
--- OUTSIDE RECORDS SUMMARY | 2024-11-04 10:49 | XMS_ITS | Encounter Summary ---
Author Organization Healthcare Address [address] [place] [address] Care Team Providers Care Annealing Furnace Tender Name Role Phone Laurie Gutierrez MD Primary Care Provider [phone] Joshua Martínez MD Unavailable Encounter Details Date Type Department Care Team (Latest Contact Info) Description 11/04/2024 10:49 AM EDT - 11/04/2024 11:59 PM EDT Hospital Encounter [facility] [address] [id number] [place] [address] Discharge Disposition: Still a Patient 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 [...] any time in the past 12 m [facility], were you homeless or [...] any time in the past 12 m [facility], were you homeless or [...] drink first t laurie in the morning (EYE-CELLAR SUPERVISOR) to steady your nerves or to get rid of a hangover? 0 10/27/2024 CAGE Questionnaire Score 0 025 Utilities Answer Date Recorded In the past 12 months has th e [employer], gas, oil, or water company threatened to [...] CC Head, Neck & Respiratory 800 [facility], 2nd [place] [address] 11/29/2024 11:00 AM EDT Office Visit [facility] Head[facility] Neck [facility] Respiratory 800 [facility], 2nd [place] [address] Satnam Colvin MD 800 [facility] Nuria Degroot [address] [place] [address] 11/29/2024 12:30 PM EDT Appointment [facility] 1 [address] [place] [address] 11/30/2024 1:30 PM EDT Appointment [facility] Infusion Clinic 1 [address] [place] [address] 12/01/2024 2:00 PM EDT Appointment [facility] 1 [address] [place] [address] 12/06/2024 11:40 AM EDT Appointment [facility] Rad[facility] [address] [facility]. [id number] [place] [address] Haven Blum, TRADE MARKER [address] [facility] [address] [place] [address] 01/19/2025 9:30 AM EDT Appointment [facility] S Radiology [address], 1st [place] [address] 01/19/2025 10:45 AM EDT Office Visit [place] [facility] [address], 1st [place] [address] Abhilash Bangura MD [address] [place] [address] 03/08/2025 1:00 PM EDT Office Visit [facility] [place] [facility] 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, PRODUCT PICKER Panic 10/26/2024 10/31/2024 Assessment Noted Time PHQ-9 Depression Total Score: 0 09/01/19 25 3:26 PM EDT A fall risk assessment has been complete d for the patient 10/06/2024 2:29 PM EDT A Body Mass Index follow-up plan has been documented for the patient 10/31/2024 4:09 PM EDT documented as of this encounter Care Teams Annealing Furnace Tender Relationship Specialty Start Date End Date Laurie Gutierrez MD [address] [place] [address] PCP - General 12/09/23 Joshua Martínez MD [address] [place] [phone] Consulting Physician Radiation Oncology 09/19/24 documented as of this encounter
--- OUTSIDE RECORDS SUMMARY | 2024-11-07 08:45 | XMS_ITS | Encounter Summary ---
Author Organization Healthcare Address [address] [place] [address] Care Team Providers Care Aircraft Motor Mechanic Name Role Phone Laurie Gutierrez MD Primary Care Provider [phone] Joshua Martínez MD Unavailable Encounter Details Date Type Department Care Team (Latest Contact Info) Description 11/07/2024 8:45 AM EDT - 11/07/2024 12:13 PM EDT Hospital Encounter [facility] Radiation [address] [id number] [place] [address] Discharge Disposition: Still a Patient 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 [...] any time in the past 12 m [facility], were you homeless or living [...] any time in the past 12 m [facility], were you homeless or living [...] drink first t laurie in the morning (EYE-WRAPPER DIPPER) to steady your nerves or to [...] MG Take 1 tablet by mouth daily. 07/08/202 5 insulin glargine (Lantus) 100 UNIT/ML injection [...] Encounters Date Type Department Care Team ([facility] st Contact Info) Description 11/29/2024 10:30 AM EDT Clinical Support [facility] Head[facility] Neck [facility] Respiratory [address] 2nd [place] [address] 11/29/2024 11:00 AM EDT Office Visit [facility] Head[facility] Neck & Respiratory 800 [facility], 2nd [place] [address] Satnam Colvin MD 800 [facility] Nuria Degroot [address] [place] [address] 11/29/2024 12:30 PM EDT Appointment [facility] 1 [address] [place] [address] 11/30/2024 1:30 PM EDT Appointment [facility] 1 [address] [place] [address] 12/01/2024 2:00 PM EDT Appointment [facility] 1 [address] [place] [address] 12/06/2024 11:40 AM EDT Appointment [facility] Radiation 800 [facility]. [id number] [place] [address] Haven Blum, FARM CONTRACTOR BUYER [address] [facility] [address] [place] [address] 01/19/2025 9:30 AM EDT Appointment [facility] S Radiology [address], 1st [place] [address] 01/19/2025 10:45 AM EDT Office Visit [place] [facility] [address], 1st [place] [address] Abhilash Bangura MD [address] [place] [address] 03/08/2025 1:00 PM EDT Office Visit [facility] [place] [facility] 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, SUPERVISOR CHANNEL PROCESS Panic 10/26/2024 10/31/2024 Assessment Noted Time PHQ-9 Depression Total Score: 0 09/01/19 25 3:26 PM EDT A fall risk assessment has been complete d for the patient 10/06/2024 2:29 PM EDT A Body Mass Index follow-up plan has been documented for the patient 10/31/2024 4:09 PM EDT documented as of this encounter Care Teams Aircraft Motor Mechanic Relationship Specialty Start Date End Date Laurie Gutierrez MD [address] [place] [address] PCP - General 12/09/23 Joshua Martínez MD [address] [place] [phone] Consulting Physician Radiation Oncology 09/19/24 documented as of this encounter
--- OUTSIDE RECORDS SUMMARY | 2024-11-07 08:45 | XMS_ITS | Encounter Summary ---
Author Organization Healthcare Address [address] [place] [address] Care Team Providers Care Aerospace Medicine Physician Name Role Phone Laurie Gutierrez MD Primary Care Provider [phone] Joshua Martínez MD Unavailable Encounter Details Date Type Department Care Team (Latest Contact Info) Description 11/07/2024 8:45 AM EDT - 11/07/2024 12:13 PM EDT Hospital Encounter [facility] [address] [id number] [place] [address] Discharge Disposition: Still a Patient 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 [...] drink first t laurie in the morning (EYE-CLINICAL OB) to steady your nerves or to get [...] Upcoming Encounters Date Type Department Care Team ([facility] st Contact Info) Description 11/29/2024 10:30 AM EDT Clinical Support [facility] Head[facility] Neck & Respiratory [address] 2nd [place] [address] 11/29/2024 11:00 AM EDT Office Visit [facility] Head[facility] Neck & Respiratory 800 [facility], 2nd [place] [address] Satnam Colvin MD 800 [facility] Nuria Degroot [address] [place] [address] 11/29/2024 12:30 PM EDT Appointment [facility] 1 [address] [place] [address] 11/30/2024 1:30 PM EDT Appointment [facility] 1 [address] [place] [address] 12/01/2024 2:00 PM EDT Appointment [facility] 1 [address] [place] [address] 12/06/2024 11:40 AM EDT Appointment [facility] Radiation 800 [facility]. [id number] [place] [phone] Haven Blum, BRIM POUNCER MACHINE OPERATOR 800 [facility] [address] [place] [address] 01/19/2025 9:30 AM EDT Appointment [facility] S Radiology [address], 1st [place] [address] 01/19/2025 10:45 AM EDT Office Visit [place] [facility] [address], 1st [place] [address] Abhilash Bangura MD [address] [place] [address] 03/08/2025 1:00 PM EDT Office Visit [facility] [place] [facility] 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, DIRECTOR OF SERVICES Panic 10/26/2024 10/31/2024 Assessment Noted Time PHQ-9 Depression Total Score: 0 09/01/19 25 3:26 PM EDT A fall risk assessment has been complete d for the patient 10/06/2024 2:29 PM EDT A Body Mass Index follow-up plan has been documented for the patient 10/31/2024 4:09 PM EDT documented as of this encounter Care Teams Aerospace Medicine Physician Relationship Specialty Start Date End Date Laurie Gutierrez MD [address] [place] [address] PCP - General 12/09/23 Joshua Martínez MD [address] [place] [phone] Consulting Physician Radiation Oncology 09/19/24 documented as of this encounter
--- OUTSIDE RECORDS SUMMARY | 2024-11-07 12:14 | XMS_ITS | Encounter Summary ---
Author Organization Healthcare Address [address] [place] [address] Care Team Providers Care Celebrity Chef Entrepreneur Media Personality Name Role Phone Laurie Gutierrez MD Primary Care Provider Joshua Martínez MD Unavailable Encounter Details Date Type Department Care Team (Latest Contact Info) Description 11/07/2024 12:14 PM EDT - 11/07/2024 11:59 PM EDT Hospital Encounter [facility] [address] [id number] [place] [address] Discharge Disposition: Still a Patient 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 [...] in a intermediate (including now)? No 10/14/2024 Humiliation, Afraid, Rape, [...] living in a intermediate (including now)? No 10/26/2024 CAGE ASSESSMENT Answer [...] drink first t laurie in the morning (EYE-LOKIE DRIVER) to steady your nerves or to get [...] Upcoming Encounters Date Type Department Care Team ([facility] st Contact Info) Description 11/29/2024 10:30 AM EDT Clinical Support [facility] Neck [facility] Respiratory [address] 2nd [place] [address] 11/29/2024 11:00 AM EDT Office Visit [facility] Head[facility] Neck & Respiratory 800 [facility], 2nd [place] [address] Satnam Colvin MD 800 [facility] Nuria [address] [place] [address] 11/29/2024 12:30 PM EDT Appointment [facility] 1 [address] [place] [address] 11/30/2024 1:30 PM EDT Appointment [facility] 1 [address] [place] [address] 12/01/2024 2:00 PM EDT Appointment [facility] 1 [address] [place] [address] 12/06/2024 11:40 AM EDT Appointment [facility] Radiation 800 [facility] [place]. [id number] [place] [address] Haven Blum, BAKERY PRODUCTS CHECKER [address] [facility] [address] [place] [address] 01/19/2025 9:30 AM EDT Appointment [facility] Rad[facility] [address], 1st [place] [address] 01/19/2025 10:45 AM EDT Office Visit [place] [facility] [address], 1st [place] [address] Abhilash Bangura MD [address] [place] [address] 03/08/2025 1:00 PM EDT Office Visit [facility] [place] [facility] 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, OPERATIONS RESEARCH ANALYST Panic 10/26/2024 10/31/2024 Assessment Noted Time PHQ-9 Depression Total Score: 0 09/01/19 25 3:26 PM EDT A fall risk assessment has been complete d for the patient 10/06/2024 2:29 PM EDT A Body Mass Index follow-up plan has been documented for the patient 10/31/2024 4:09 PM EDT documented as of this encounter Care Teams Celebrity Chef Entrepreneur Media Personality Relationship Specialty Start Date End Date Laurie Gutierrez MD [address] [place] [address] PCP - General 12/09/23 Joshua Martínez MD [address] [place] [phone] Consulting Physician Radiation Oncology 09/19/24 documented as of this encounter
--- OUTSIDE RECORDS SUMMARY | 2024-11-07 12:14 | XMS_ITS | Encounter Summary ---
Author Organization Healthcare Address [address] [place] [address] Care Team Providers Care Director Hair Name Role Phone Laurie Gutierrez MD Primary Care Provider [phone] Joshua Martínez MD Unavailable Encounter Details Date Type Department Care Team (Latest Contact Info) Description 11/07/2024 12:14 PM EDT - 11/07/2024 11:59 PM EDT Hospital Encounter [facility] Rad[facility] [address] [id number] [place] [address] Discharge Disposition: Still a Patient 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 [...] place to sleep or slept in a detention (including now)? No 11/20/2023 PHQ-9 Answer Date [...] were you homeless or living in a detention (including now)? No 10/14/2024 Humiliation, Afraid, Rape, [...] were you homeless or living in a detention (including now)? No 10/26/2024 CAGE ASSESSMENT Answer [...] drink first t laurie in the morning (EYE-METAL CUT OFF SAW TENDER) to steady your nerves or to [...] Upcoming Encounters Date Type Department Care Team ([facility] st Contact Info) Description 11/29/2024 10:30 AM EDT Clinical Support [facility] Neck [facility] Respiratory [address] 2nd [place] [address] 11/29/2024 11:00 AM EDT Office Visit [facility] Head[facility] Neck [facility] Respiratory [address] [facility], 2nd [place] [address] Satnam Colvin MD [address] [facility] [address] [place] [address] 11/29/2024 12:30 PM EDT Appointment [facility] 1 [address] [place] [address] 11/30/2024 1:30 PM EDT Appointment [facility] 1 [address] [place] [address] 12/01/2024 2:00 PM EDT Appointment [facility] 1 [address] [place] [address] 12/06/2024 11:40 AM EDT Appointment [facility] Radiation [address] [facility]. [id number] [place] [address] Haven Blum, PANEL ASSEMBLER [address] [facility] [address] [place] [address] 01/19/2025 9:30 AM EDT Appointment [facility] S Radiology [address], 1st [place] [address] 01/19/2025 10:45 AM EDT Office Visit [place] [facility] [address], 1st [place] [address] Abhilash Bangura MD [address] [place] [address] 03/08/2025 1:00 PM EDT Office Visit [facility] [place] [facility] 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, THERAPEUTIC RADIOLOGIST Panic 10/26/2024 10/31/2024 Assessment Noted Time PHQ-9 Depression Total Score: 0 09/01/19 25 3:26 PM EDT A fall risk assessment has been complete d for the patient 10/06/2024 2:29 PM EDT A Body Mass Index follow-up plan has been documented for the patient 10/31/2024 4:09 PM EDT documented as of this encounter Care Teams Director Hair Relationship Specialty Start Date End Date Laurie Gutierrez MD [address] [place] [address] PCP - General 12/09/23 Joshua Martínez MD [address] [place] [phone] Consulting Physician Radiation Oncology 09/19/24 documented as of this encounter
--- OUTSIDE RECORDS SUMMARY | 2024-11-08 11:00 | XMS_ITS | Encounter Summary ---
Author Organization Healthcare Address [address] [place] [address] Care Team Providers Care Wrapper Off Name Role Phone Laurie Gutierrez MD Primary Care Provider [phone] Joshua Martínez MD Unavailable Reason for Visit * Reason Comments Labs Peripheral stick, ri ght arm Encounter Details Date Type Department Care Team (Latest Contact Info) Description 11/08/2024 11:00 AM EDT Clinical Support [facility] Head[facility] Ne[facility] Respiratory [address], 2nd [place] [address] Extensive stage primary small cell carcinoma of [...] place to sleep or slept in a assisted (including now)? No 11/20/2023 PHQ-9 Answer Date [...] were you homeless or living in a assisted (including now)? No 10/14/2024 Humiliation, Afraid, Rape, [...] were you homeless or living in a assisted (including now)? No 10/26/2024 CAGE ASSESSMENT Answer [...] drink first t laurie in the morning (EYE-HEALTH CARE SPECIALIST) to steady your nerves or to [...] drink containing alcohol? Never 11/08/2024 11:13 AM Kasadnra Loomis Q2: How many drinks containing alcohol [...] [facility] Neck [facility] Respiratory [address] [facility], 2nd [place] [address] 11/29/2024 11:00 AM EDT Office Visit [facility] Head[facility] Neck & Respiratory [address] [facility], 2nd [place] [address] Satnam Colvin MD 800 [facility] [address] [facility] [address] [place] [address] 11/29/2024 12:30 PM EDT Appointment [facility] 1 [address] [place] [address] 11/30/2024 1:30 PM EDT Appointment [facility] 1 [address] [place] [address] 12/01/2024 2:00 PM EDT Appointment [facility] 1 [address] [place] [address] 12/06/2024 11:40 AM EDT Appointment [facility] CC Radiation [address] [facility]. [id number] [place] [address] Haven Blum, LINECASTING MACHINE KEYBOARD OPERATOR [address] [facility] [address] [place] [address] 01/19/2025 9:30 AM EDT Appointment [facility] S Radiology [address], 1st [place] [address] 01/19/2025 10:45 AM EDT Office Visit [place] [facility] [address], 1st [place] [address] Abhilash Bangura MD [address] [place] [address] 03/08/2025 1:00 PM EDT Office Visit [facility] [place] [address] [place] [address] Teresita Oconnell MD [address] [place] [address] documented as of this encounter [...] - 2.4 mg/dL 11/08/2024 12:14 PM EDT [facility] Blood Venous blood specimen / Unknown Venipuncture / Unknown 11/08/2024 11:36 AM EDT 11/08/2024 11:45 AM EDT us Satnam Dunne MD LAB BLOOD ORDERABLES Fi nal Result [facility] [address] [place] [address] * (ABNORMAL) Comprehensive metabolic panel (11/08/2024 11:36 AM EDT) Glucose, Plasma 140(H) 74 - 99 mg/dL 11/08/2024 12:14 PM EDT [facility] BUN, Plasma 11 8 - 23 mg/dL 11/08/2024 12:14 PM EDT [facility] Creatinine, Plasma 0.77 0.60 - 1.10 mg/dL 11/08/2024 12:14 PM EDT [facility] BUN/Creatinine Ratio 14 11/08/2024 12:14 PM EDT [facility] Sodium, Plasma 144 136 - 145 mmol/L 11/08/2024 12:14 PM EDT [facility] Potassium, Plasma 4.1 3.6 - 4.9 mmol/L 11/08/2024 12:14 PM EDT [facility] Chloride, Plasma 105 97 - 107 mmol/L 11/08/2024 12:14 PM EDT [facility] CO2, Plasma 23 22 - 29 mmol/L 11/08/2024 12:14 PM EDT [facility] Anion Gap 16 6 - 16 mmol/L 11/08/2024 12:14 PM EDT [facility] Total Calcium, Plasma 9.3 8.9 - 10.2 mg/dL 11/08/2024 12:14 PM EDT [facility] Total Protein 7.1 6.3 - 7.9 g/dL 11/08/2024 12:14 PM EDT [facility] Albumin, Plasma 3.7 3.5 - 5.2 g/dL 11/08/2024 12:14 PM EDT [facility] AST, Plasma 17 10 - 35 U/L 11/08/2024 12:14 PM EDT [facility] ALT, Plasma 26 10 - 35 U/L 11/08/2024 12:14 PM EDT [facility] Alkaline Phosphatase, Plasma 94 46 - 142 U/L 11/08/2024 12:14 PM EDT [facility] Total Bilirubin, Plasma 0.4 0.2 - 1.1 mg/dL 11/08/2024 12:14 PM EDT [facility] eGFRcr 86.8 mL/min/1.7 3m*2 11/08/2024 12:14 PM EDT [facility] Comment:Reported eGFRcr in m L/min/1.73m2 is based the CKD-EPI 2020 equation that does not use a race coefficient. Blood Venous blood specimen / Unknown Venipuncture / Unknown 11/08/2024 11:36 AM EDT 11/08/2024 11:45 AM EDT Satnam Dunne MD LAB BLOOD ORDERABLES Fi nal Result [facility] [address] [place] [address] * (ABNORMAL) CBC and differential (11/08/2024 11:36 AM EDT) Pathologist [facility] WBC Count 10.97(H) 3.70 - 10.30 10*3/uL LAB HEMATOLOGY METHOD 11/08/2024 11:52 AM EDT [facility] RBC Count 2.87(L) 3.90 - 5.20 10*6/uL LAB HEMATOLOGY METHOD 11/08/2024 11:52 AM EDT [facility] HGB 8.9(L) 11.2 - 15.7 g/dL LAB HEMATOLOGY METHOD 11/08/2024 11:52 AM EDT [facility] HCT 30.2(L) 34.0 - 45.0 % LAB HEMATOLOGY METHOD 11/08/2024 11:52 AM EDT [facility] Platelet Count 275 155 - 369 10*3/uL LAB HEMATOLOGY METHOD 11/08/2024 11:52 AM EDT [facility] MCV 105(H) 79 - 98 fL LAB HEMATOLOGY METHOD 11/08/2024 11:52 AM EDT [facility] MCH 31.0 26.0 - 32.0 pg LAB HEMATOLOGY METHOD 11/08/2024 11:52 AM EDT [facility] MCHC 29.5(L) 30.7 - 35.5 g/dL LAB HEMATOLOGY METHOD 11/08/2024 11:52 AM EDT [facility] RDW 19.9(H) 11.5 - 14.5 % LAB HEMATOLOGY METHOD 11/08/2024 11:52 AM EDT [facility] MPV 9.7 8.8 - 12.5 fL LAB HEMATOLOGY METHOD 11/08/2024 11:52 AM EDT [facility] nRBC 1.1(H) <=0.0 per 100 WBCs LAB HEMATOLOGY METHOD 11/08/2024 11:52 AM EDT [facility] Differential Type Automated LAB HEMATOLOGY METHOD 11/08/2024 11:52 AM EDT [facility] Neutrophils % 78 % LAB HEMATOLOGY METHOD 11/08/2024 11:52 AM EDT [facility] Lymphocytes % 13 % LAB HEMATOLOGY METHOD 11/08/2024 11:52 AM EDT [facility] Monocytes % 6 % LAB HEMATOLOGY METHOD 11/08/2024 11:52 AM EDT [facility] Eosinophils % 1 % LAB HEMATOLOGY METHOD 11/08/2024 11:52 AM EDT [facility] Basophils % 1 % LAB HEMATOLOGY METHOD 11/08/2024 11:52 AM EDT [facility] Immature Granulocytes % 1 % LAB HEMATOLOGY METHOD 11/08/2024 11:52 AM EDT [facility] Neutrophils Absolute 8.68(H) 1.60 - 6.10 10*3/uL LAB HEMATOLOGY METHOD 11/08/2024 11:52 AM EDT [facility] Lymphocytes Absolute 1.38 1.20 - 3.90 10*3/uL LAB HEMATOLOGY METHOD 11/08/2024 11:52 AM EDT [facility] Monocytes Absolute 0.68 0.30 - 0.90 10*3/uL LAB HEMATOLOGY METHOD 11/08/2024 11:52 AM EDT [facility] Eosinophils Absolute 0.07 0.00 - 0.50 10*3/uL LAB HEMATOLOGY METHOD 11/08/2024 11:52 AM EDT [facility] Basophils Absolute 0.06 0.00 - 0.10 10*3/uL LAB HEMATOLOGY METHOD 11/08/2024 11:52 AM EDT [facility] Immature Granulocytes Absolute 0.10(H) 0.00 - 0.06 10*3/uL LAB HEMATOLOGY METHOD 11/08/2024 11:52 AM EDT [facility] Blood Venous blood specimen / Unknown Venipuncture / Unknown 11/08/2024 11:36 AM EDT 11/08/2024 11:45 AM [facility]T [facility] 11/08/2024 11:52 AM EDT Therapeutic decision making should be based on absolute values, rather than percentages. 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, ANALYTICAL TECH Panic 10/26/2024 10/31/2024 Assessment Noted Time PHQ-9 Depression Total Score: 0 09/01/19 3:26 PM EDT A fall risk assessment has been complete d for the patient 11/08/2024 2:02 PM EDT A Body Mass Index follow-up plan has been documented for the patient 11/08/2024 5:14 PM EDT documented as of this encounter Care Teams Wrapper Off Relationship Specialty Start Date End Date Laurie Gutierrez MD [address] [place] [address] PCP - General 12/09/23 Joshua Martínez MD [address] [address] Consulting Physician Radiation Oncology 09/19/24 documented as of this encounter
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
--- OUTSIDE RECORDS SUMMARY | 2024-11-08 11:20 | XMS_ITS | Encounter Summary ---
Author Organization Healthcare Address [address] [place] [address] Care Team Providers Care Manager Unit Name Role Phone Laurie Gutierrez MD Primary Care Provider [phone] Joshua Martínez MD Unavailable Reason for Visit * Reason Comments Follow-up Encounter Details Date Type Department Care Team ([facility] Contact Info) Description 11/08/2024 11:20 AM EDT Office Visit [facility] Head[facility] Neck & Respiratory [address] [facility]nd [place] [address] Satnma Colvin MD [address] 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 No 10/14/2024 Humiliation, Afraid, Rape, [...] living in a jail (including now)? 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) to steady your nerves or to [...] Sign Reading Time Taken Comments Blood Pressure 104/69 11/08/2024 11:17 AM EDT Pulse 67 11/08/2024 11:17 AM EDT Temperature 36.7 C (98 F) 11/08/2024 11:17 AM EDT Respiratory Rate 18 11/08/2024 11:17 AM EDT Oxygen Saturation 94% 11/08/2024 11:17 AM EDT Inhaled Oxygen Concentration - - Weight 117 kg (257 lb 4.4 oz) 11/08/2024 11:17 A M EDT Height 171 cm (5' 7.32 ) 11/08/2024 11:17 AM EDT Body Mass Index 39.91 11/08/2024 11:17 AM EDT documented in this encounter Functional Status * AUDIT-C Score Answer Date of Assessment Author 0 11/08/2024 11:13 AM EDT Kasandra Riley * Question Answer Date of Assessment Author Q1: How often do you have a drink containing alcohol? Never 11/08/2024 11:13 AM EDT Kasandra Riley Q2: How many drinks containing [...] Notes - Rupa De Santiago, PharmD - 11/08/2024 11:20 AM EDT Pharmacy Hematology/Oncology Treatment Note Teresa Rivera is a 63 y.o. female with ES SCLC Cancer Staging No matching staging information was found for the patient. . Study Patient: no Treatment Plan reviewed for Carboplatin/Etoposide/Atezolizumab every 21 days. [x] Follow-Up Clinical Review for Cycle 2 Days 1-3 [] Follow-Up Clinical Review for Continuous Oral Therapy Interval History: 10/04/24: Ms. Rivera had a craniotomy on 08/31 and will begin carbo/etop/atezo today. Radiation oncology is planning on WBRT in 30gy/10fx. Magnesium is 1.5, so sent magnesium 400 mg BID and added electrolyte replacement protocol. 11/08/24: Ms. Rivera was admitted with neutropenic fever after cycle 1, so will add Neulasta. She received 3 doses of filgrastim while inpatient. WBRT completed 11/07. Labs appropriate for treatment. Today's Wt: Wt Readings from Last 1 Encounters: 11/08/24 117 kg (257 lb 4.4 oz) Dosing Wt: 118 kg Dosing Ht: 170.2 cm DosingBSA: 2.26 m2 Recent Labs: Lab Results Component Value Date WBC 10.97 (H) 11/08/2024 HGB 8.9 (L) 11/08/2024 HCT 30.2 (L) 11/08/2024 MCV 105 (H) 11/08/2024 PLT 275 11/08/2024 Lab Results Component Value Date GLUCOSE 140 (H) 11/08/2024 CALCIUM 9.3 11/08/2024 NA 144 11/08/2024 K 4.1 11/08/2024 CO2 23 11/08/2024 CL 105 11/08/2024 BUN 11 11/08/2024 CREATININE 0.77 11/08/2024 Lab Results Component Value Date ALT 26 11/08/2024 AST 17 11/08/2024 ALKPHOS 94 11/08/2024 BILITOT 0.4 11/08/2024 Lab Results Component Value Date NEUTROABS 8.68 (H) 11/08/2024 Lab Results Component Value Date MG 1.6 (L) 11/08/2024 Lab Results Component Value Date TSH 0.90 10/04/2024 Lab Results Component Value Date URINEPRO Trace (A) 10/13/2024 Vitals: Visit Vitals BP 104/69 (BP Location: Right arm) Pulse 67 Temp 36.7 ??C (98 ??F) (Oral) Resp 18 Other Relevant Monitoring: for carboplatin: AdjBW (BMI >25): 84.1 kg SCr: Results from last 7 days Lab Units 11/08/24 1136 CREATININE mg/dL 0.77 eCrCl: 99.3 ml/min Treatment/Therapy Plan: Carboplatin AUC 5 IV Day 1 Etoposide 100 mg/m2 (220 mg) IV Days 1-3 Atezolizumab 1875 mg subcutaneous Day 1 + Neulasta 6 mg subcutaneous OBI Day 3 [x] No dose adjustments made Current Treatment Plan History: Carbo/Etop/Atezo C1: 10/04-10/06/24 C2: 11/08-11/10/24 (delayed d/t WBRT and admission, Neulasta added) Prior Treatment History: Craniotomy 08/31/24 WBRT 10/24-11/07/24 Plan: Patient will return to clinic in 3 weeks. Will follow-up at that time. Pharmacist Attestation: Rupa De Santiago PharmD, [facility] Clinical Oncology Pharmacist * Progress Notes - Satnam Colvin MD - 11/08/2024 11:20 AM EDT Medical Oncology Clinic Note Patient Name: Teresa Rivera Date of : 1960 63 y.o. Referring Physician:No referring provider defined for this encounter. Encounter Date: 11/09/2024 Chief Complaint: Chief Complaint Patient presents with [...] therapy. Interval history Patient returns to clinic. She had 2 hospitalizations since last visit. Today she reports fatigue. Her bottom is sore. No headaches, blurry or double vision. No significant nausea or vomiting. No worsening shortness of breath. No chest pain. No fevers or chills. Current Treatment Regimen: Carbo etoposide with whole-brain radiation Current Treatment Plan History: Carbo/Etop/Atezo C1: 10/04-10/06/24 Oncology History: - initially diagnosed with [id number], stage IIIA limited stage of the right [...] twice daily and tapering dose of dexamethasone. - 10/12/2024 to 10/18/2024-hospital admission for febrile neutropenia due to pneumonia. Lumbar puncture ruled out meningitis. Treated with antibiotics and improved. Was also treated for oral thrush. She was also had paroxysmal atrial fibrillation. Received filgrastim in the hospital and neutropeniaresolved. 10/25/2024 to 10/31/2024-hospital readmission for weakness, shortness of breath. Imaging with worsening pneumonia and acute hypoxic respiratory failure. Sputum culture with Pseudomonas aeruginosa. Treated with total 7 days of antibiotics improved and discharged home. Past Medical, Surgical, Family and 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: Past Medical History[1] Surgical History[2] Family History[3] 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[4] Allergies: Cephalexin, Lisinopril, and Meloxicam Medications: Current Medications[5] Review of Systems: A comprehensive 14 point review of systems was performed, noted to be negative with the pertinent positives documented in the HPI section of this note. Vital Signs: Visit Vitals BP 104/69 (BP Location: Right arm) Pulse 67 Temp 36.7 ??C (98 ??F) (Oral) Resp 18 Physical Examination: GENERAL: no acute distress. SKIN: . No rashes or lesions. EYES: conjunctiva clear, ENT: intact, no apparent injury HEAD/NECK: neck supple RESPIRATORY: non-labored respirations CARDIOVASCULAR: no peripheral edema GASTROINTESTINAL: soft, non-tender, non-distended, Externally and exam with no evidence of fissure, abscess MUSCULOSKELETAL: No significant muscle wasting noted NEUROLOGICAL: alert and oriented x3, no focal deficits PSYCHOLOGICAL: Normal mood. Labs, Imaging, Pathology: Lab Results Component Value Date WBC 10.97 (H) 11/08/2024 RBC 2.87 (L) 11/08/2024 HGB 8.9 (L) 11/08/2024 HCT 30.2 (L) 11/08/2024 MCV 105 (H) 11/08/2024 MCV 93 08/25/2013 MCHC 29.5 (L) 11/08/2024 RDW 19.9 (H) 11/08/2024 PLT 275 11/08/2024 MPV 9.7 11/08/2024 EOS 3 08/25/2013 Lab Results Component Value Date BUN 11 11/08/2024 CL 105 11/08/2024 NA 144 11/08/2024 K 4.1 11/08/2024 CA 9.6 08/25/2013 TP 7.1 11/08/2024 AST 17 11/08/2024 ALT 26 11/08/2024 I visualized the recent imaging and discussed [...] COMMUNICATION: Per this written report. Drafted by Phillpi Lopes MD on 09/05/2024 8:12 PM Final [...] have personally calculated and ordered chemotherapy. - received cycle 1 and complicated by sepsis due to febrile neutropenia due to pneumonia, readmission 10/25-10/31 for worsening pneumonia and acute hypoxic respiratory failure. Status post broad-spectrum antibiotics and improved. - okay to give cycle 2 today with on body growth factor support (on day 3). - RTC day 1 of cycle 3 # Chemotherapy toxicity -febrile neutropenia-sepsis with acute hypoxic respiratory failure. Grade 3-requiring hospitalization. # Medical comorbidities Diabetes mellitus type 2-was on Januvia, Jardiance and metformin. Insulin in the hospital. Plan to continue home medications Atrial flutter status post ablation on dual antiplatelets. Resume. Chronic essential hypertension-continue Coreg Chronic pain-continue gabapentin -refilled 11/08/2024 COPD-continue home inhalers. Not oxygen dependent. Depression [...] of associated toxicities in patients with cancer. I spent 45 minutes on this patient today which includes reviewing hospital records reviewing images, labs, coordinating care and, 20 minutes [id number] encounter. MD [facility] [address] [facility] [phone] [facility]. [1] Past Medical History: Diagnosis Date Brain tumor (CMS/HCC) Chemotherapy-induced nausea and vomiting 08/28/2023 Personal history of other diseases of the circulatory system History of essential hypertension Personal history of other diseases of the musculoskeletal system and connective tissue History of osteoarthritis Personal history of other endocrine, nutritional and metabolic disease History of type 2 diabetes mellitus Pneumonia [2] Past Surgical History: Procedure Laterality Date BRAIN SURGERY TUBAL LIGATION N/A Tubal Ligation from [facility] TYMPANOSTOMY TUBE PLACEMENT N/A Ear Surgery Eustachian Tube from [facility] [3] Family History Problem Relation Name Age of Onset No Known Problems Mother No Known Problems Father Diabetes Other Fibromyalgia Other [4] 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 Tobacco Use Smoking status: Former Current packs/day: 0.00 Average packs/day: 1.5 packs/day for 48.4 years (72.6 ttl pk-yrs) Types: Cigarettes Start date: 1975 Quit date: 10/17/2023 Years since quittin.0 Passive exposure: Past Smokeless tobacco: Never Vaping Use Vaping status: Never Used Substance Use Topics Alcohol use: Never Drug use: Never [5] Current Outpatient Medications: atorvastatin (Lipitor) 40 MG tablet, Take 1 tablet by mouth daily., Disp: , Rfl: benzonatate (Tessalon) 100 MG capsule, Take 1 capsule by mouth 3 times a day as needed for cough. Do not crush or chew., Disp: 20 capsule, Rfl: 0 Vscounu-Bqzlkblzlkq-Orhssygsyp (Breztri Aerosphere) 160-9-4.8 MCG/ACT aerosol, Inhale 2 puffs 2 (two) times a day., Disp: , Rfl: Calcium Carb-Cholecalciferol 600-10 MG-MCG tablet, Take 1 tablet by mouth daily., Disp: , Rfl: calcium carbonate (Tums) 500 MG chewable tablet, Chew 1 tablet 4 times a day as needed for indigestion or heartburn., Disp: , Rfl: cetirizine (ZyrTEC) 10 MG tablet, Take 1 tablet by mouth daily., Disp: , Rfl: cholestyramine light (Prevalite) 4 GM/DOSE powder, Take 1 packet by mouth 2 times a day with meals., Disp: , Rfl: dexamethasone (Decadron) 2 MG tablet, Take 1 tablet by mouth every 12 hours., Disp: 10 tablet, Rfl:0 empagliflozin (Jardiance) 25 MG, Take 1 tablet by mouth daily., Disp: , Rfl: estradiol (Estrace) 0.1 MG/GM vaginal cream, Insert 2 g into the vagina daily., Disp: , Rfl: ferrous sulfate 325 (65 Fe) MG tablet, Take 1 tablet by mouth daily with breakfast., Disp: , Rfl: FLUoxetine (PROzac) 40 MG capsule, Take 1 capsule by mouth daily., Disp: , Rfl: gabapentin (Neurontin) 600 MG tablet, Take 1 tablet by mouth 4 times a day., Disp: 120 tablet, Rfl:0 glucose (Trueplus Glucose) 4 g chewable tablet, Chew 4 tablets as needed for low blood sugar., Disp: 50 tablet, Rfl: 12 hydrOXYzine HCl (Atarax) 25 MG tablet, Take 1 tablet by mouth 3 times a day as needed., Disp: , Rfl: insulin glargine (Lantus) 100 UNIT/ML injection vial, Inject 25 Units under the skin nightly., Disp: 10 mL, Rfl: 3 insulin lispro (Admelog, HumaLOG) 100 UNIT/ML injection pen, Inject 15 Units under the skin 3 timesa day with meals., Disp: , Rfl: magic butt balm (Cholestyramine) CMPD (Magic Butt), Apply 1 Application topically every 1 hour as needed for diaper rash., Disp: 80 g, Rfl: 0 magic mouthwash BLM (FIRST-Mouthwash) suspension, Swish and [...] Disp: , Rfl: metoprolol succinate XL (Toprol-XL) 50 MG 24 hr tablet, Take 1 tablet by mouth daily. Do not crush or chew., Disp: 90 tablet, Rfl: 0 montelukast (Singulair) 10 MG tablet, Take 1 tablet by mouth nightly., Disp: , Rfl: NovoLOG FLEXPEN 100 UNIT/ML injection pen, Inject under the skin 3 (three) times daily with meals per correction scale as follows: blood sugar 150-199 use 2 units, 200-249 use 4 units, 250-299 use 6 units, 300-349 use 8 units, 350-399 use 10 units, >399 12 units and call provider., Disp: 15 mL, Rfl: 3 omeprazole (PriLOSEC) [address] capsule, Take 1 capsule by mouth daily., Disp: , Rfl: ondansetron (Zofran) 8 MG tablet, Take 1 tablet by mouth 2 times a day. Take on Day 4 of cycle and then take PRN, Disp: 30 tablet, Rfl: 5 pantoprazole (Protonix) 40 MG EC tablet, Take 1 tablet by mouth daily. Do not crush, chew, or split., Disp: , Rfl: pen needle, diabetic 31G X 5 MM misc, Use as directed with insulin pen., Disp: 100 each, Rfl: 11 prochlorperazine (Compazine) 10 MG tablet, Take 1 tablet by mouth every 6 hours as needed for nausea or vomiting., Disp: 30 tablet, Rfl: 3 rOPINIRole (Requip) 1 MG tablet, Take 1 tablet by mouth 2 times a day., Disp: , Rfl: SITagliptin (Januvia) 50 MG [...] by mouth every evening., Disp: , Rfl: lidocaine (Xylocaine) 5 % ointment, Apply 2 times a day., Disp: 30 g, Rfl: 0 mupirocin (Bactroban) 2 % ointment, Apply on head 2 times a day, Disp: 22 g, Rfl: 0 nystatin (Mycostatin) 689389 UNIT/GM powder, Apply on bottom 2 times a day, Disp: 30 g, Rfl: 0 Probiotic, Lactobacillus, capsule, Take 1 capsule by mouth daily., Disp: 30 capsule, Rfl: 1 No current facility-administered medications for this visit. Facility-Administered Medications Ordered in Other Visits: etoposide (Toposar) 220 mg in sodium chloride 0.9 % 500 mL IVPB, 100 mg/m2 (Treatment Plan Recorded), Intravenous, Once, Satnam Colvin MD, Last Rate: 576 mL/hr at 11/09/24 1523, 220 mg at 11/09/24 1523 documented in this encounter Plan of Treatment Upcoming Encounters Date Type Department Care Team (Late st Contact Info) Description 11/29/2024 10:30 AM EDT Clinical Support [facility] Ne[facility] Res[facility] [address] [phone] 11/29/2024 11:00 AM EDT Office Visit [facility] Head[facility] Neck [facility] Respiratory [address] [phone] Satnam Colvin MD [address] [facility] [address] [place] [address] 11/29/2024 12:30 PM EDT Appointment [facility] [address] [place] [address] 11/30/2024 1:30 PM EDT Appointment [facility] Infusion Clinic [address] [place] [address] 12/01/2024 2:00 PM EDT Appointment [facility] [address] [place] [phone] 12/06/2024 11:40 AM EDT Appointment [facility] Radiation 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 [place] [address] 01/19/2025 10:45 AM EDT Office Visit [facility] [address] [place] [address] Abhilash Bangura MD [address] [place] [address] 03/08/2025 1:00 PM EDT Office Visit [facility] [address] [place] [phone] Teresita Oconnell MD [address] [place] [address] Scheduled Orders Name Type Priority Associated Diagnoses Orde r Schedule CBC and differential Lab Routine Extensive stage primary small cell carcinoma of lung Expected: 11/29/2024, Expires: 11/29/2025 Comprehensive metabolic panel Lab Routine Extensive stage primary small cell carcinoma of lung Expected: 11/29/2024, Expires: 11/29/2025 Magnesium Lab STAT Extensive stage primary small cell carcinoma of lung Expected: 11/29/2024, Expires: 11/29/2025 TSH reflex FT4 Lab Routine Extensive stage primary small cell carcinoma of lung Expected: 11/29/2024, Expires: 11/29/2025 documented as of this encounter Visit Diagnoses Diagnosis Extensive stage primary small cell carcinoma of lung- Primary Encounter for antineoplastic chemotherapy Acute hypoxic respiratory failure Chemotherapy-induced neutropenia (CMS/HCC) Drug induced neutropenia Neoplastic (malignant) related fatigue documented in this encounter Additional Health Concerns Infection Onset Date Last Indicated Resolved Time 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, 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
--- OUTSIDE RECORDS SUMMARY | 2024-11-08 11:20 | XMS_ITS | Encounter Summary ---
Author Organization Healthcare Address [address] [place] [address] Care Team Providers Care Investigator Fraud Name Role Phone Laurie Gutierrez MD Primary Care Provider [phone] Joshua Martínez MD Unavailable Reason for Visit * Reason Comments Follow-up Encounter Details Date Type Department Care Team ([facility] Contact Info) Description 11/08/2024 11:20 AM EDT Office Visit Pav CC Head, Neck & Respiratory 800 [facility], 2nd [place] [address] Satnam Colvin MD 800 [facility] [address] [place] [address] Extensive stage primary small cell carcinoma of [...] in a chcf (including now)? No 10/14/2024 Humiliation, Afraid, Rape, [...] living in a chcf (including now)? No 10/26/2024 CAGE ASSESSMENT Answer [...] drink first t laurie in the morning (EYE-PANAMA HAT SMEARER) to steady your nerves or to get [...] time. Pharmacist Attestation: Rupa De Santiago PharmD, [facility] Clinical Oncology Pharmacist * Progress Notes - [...] 10/04-10/06/24 Oncology History: - initially diagnosed with [id number], stage IIIA limited stage of the right [...] images, labs, coordinating care and, 20 minutes plbr-ox-sskr encounter. MD [facility]ATORY [address] [facility] [phone] [facility]. [1] [...] SURGERY TUBAL LIGATION N/A Tubal Ligation from [employer] TYMPANOSTOMY TUBE PLACEMENT N/A Ear Surgery Eustachian Tube from [employer] [3] Family History Problem Relation Name Age [...] or chew., Disp: 20 capsule, Rfl: 0 Voumnaz-Whqbvynxchz-Mplqrwcnvw (Breztri Aerosphere) 160-9-4.8 MCG/ACT aerosol, Inhale 2 [...] Disp: 22 g, Rfl: 0 nystatin (Mycostatin) 536146 UNIT/GM powder, Apply on bottom 2 times [...] [facility] Head, Neck & Respiratory [address] [address] 11/29/2024 11:00 AM EDT Office Visit [facility] Head, Neck & Respiratory [address] [address] Satnam Colvin MD 800 [facility] [address] [place] [address] 11/29/2024 12:30 PM EDT Appointment [facility]fusion [facility] 1 [address] [place] [address] 11/30/2024 1:30 PM EDT Appointment [facility] Infusion Clinic 1 [address] [place] [address] 12/01/2024 2:00 PM EDT Appointment [facility] Infusion [facility] [address] [place] [address] 12/06/2024 11:40 AM EDT Appointment [facility] CC Radiation [address] [place] [phone] Haven Blum, SERVICE ESTABLISHMENT ATTENDANT [address] [place] [address] 01/19/2025 9:30 AM EDT Appointment [facility] S Radiology [address], [address]st [place] [address] 01/19/2025 10:45 AM EDT Office Visit [place] [facility] [address], [address] [place] [address] Abhilash Bangura MD [address] [place] [address] 03/08/2025 1:00 PM EDT Office Visit [facility] [place]igi 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, WELFARE PROJECT MANAGER Panic 10/26/2024 10/31/2024 Assessment Noted Time PHQ-9 Depression Total Score: 0 09/01/19 25 3:26 PM EDT A fall risk assessment has been complete d for the patient 11/08/2024 2:02 PM EDT A Body Mass Index follow-up plan has been documented for the patient 11/08/2024 5:14 PM EDT documented as of this encounter Care Teams Investigator Fraud Relationship Specialty Start Date End Date Laurie Gutierrez MD [address] [place] [address] PCP - General 12/09/23 Joshua Martínez MD [address] [place] [phone] Consulting Physician Radiation Oncology 09/19/24 documented as of this encounter
--- OUTSIDE RECORDS SUMMARY | 2024-11-08 14:00 | XMS_ITS | Encounter Summary ---
Author Organization Healthcare Address [address] [place] [address] Care Team Providers Care Soliciting Freight Agent Name Role Phone Laurie Gutierrez MD Primary Care Provider [phone] Joshua Martínez MD Unavailable Reason for Visit * Episode Based Medications (Routine) - Authorized Specialty Diagnoses / Procedures Referred By Contac t Referred To Contact Diagnoses Extensive stage primary small cell carcinoma of lung Procedures CARBOplatin / Etoposide Daily x 3 / Atezolizumab Every 21 Days Satnam Colvin MD [address] [facility] Nuria Degroot [address] [address] Phone: tel: fax: Satnam Colvin MD [address] [facility] Nuria Degroot [address] [address] Phone: tel: fax: Referral ID Status Reason Start Date Expiration Date V isits Requested Visits Authorized [id number] Authorized 10/04/2024 04/05/2026 1 16 Encounter Details Date Type Department Care Team (Latest Contact Info) Description 11/08/2024 2:00 PM EDT - 11/08/2024 11:59 PM EDT Hospital En[facility] [address] [place] [address] 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) Discharge Disposition: Home or Self Care 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 Tobacco Use Types Packs/Day Years Used Date Smoking Tobacco: Former Cigarettes 1.5 48.4 1 976 - 10/17/2023 Passive Smoke Exposure: Past Smokeless Tobacco: Never Tobacco Cessation:Counseling Given: Not Answered Alcohol Use Standard Drinks/Week Comments Never 0 [...] drink first t laurie in the morning (EYE-CYBER THREAT ANALYST) to steady your nerves or to get rid of a hangover? 0 10/27/2024 CAGE Questionnaire Score 0 025 Utilities Answer Date Recorded In the past 12 months has th e [employer], gas, oil, or water company threatened to shut off services in your home? No 10/26/2024 Comments No Sex and Gender Information Value Date Recorded Sex Assigned at Not on file Legal Sex Female 8:32 PM EDT Gender Identity Not on file Sexual Orientation Not on file documented as of this encounter Last Filed Vital Signs Vital Sign Reading Time Taken Comments Blood Pressure 111/73 11/08/2024 5:11 PM EDT Pulse 83 11/08/2024 5:11 PM EDT Temperature 36.8 C (98.3 F) 11/08/2024 2:03 PM EDT Respiratory Rate 18 11/08/2024 2:03 PM EDT Oxygen Saturation 94% 11/08/2024 2:03 PM EDT Inhaled Oxygen Concentration - - Weight 118 kg (259 lb 11.2 oz) 11/08/2024 2:03 P M EDT Height 170.2 cm (5' 7 ) 11/08/2024 2:03 PM EDT Body Mass Index 40.68 11/08/2024 2:03 PM EDT documented in this encounter Functional [...] Kasandra Riley documented as of this encounter Medications at [...] capsule Take 1 capsule by mouth daily. gabapentin (Neurontin) 600 MG tablet Take 1 tablet by mouth 4 times a day. 120 tablet 11/08/2024 glucose (Trueplus Glucose) 4 g chewable tablet Chew 4 tablets as needed for low blood sugar. 50 tablet 12 10/31/2024 hydrOXYzine HCl (Atarax) 25 MG tablet Take 1 tablet by mouth 3 times a day as needed. lidocaine (Xylocaine) 5 % ointment Apply 2 times a day. 30 g 11/08/2024 magic butt balm (Cholestyramine) CMPD (Magic Butt) [...] tablet Take 1 tablet by mouth nightly. mupirocin (Bactroban) 2 % ointment Apply on head 2 times a day 22 g 11/08/2024 nystatin (Mycostatin) 297539 UNIT/GM powder Apply on bottom 2 times a day 30 g 11/08/2024 ondansetron (Zofran) 8 MG tabletIndication s:Extensive stage primary small cell carcinoma of lung Take 1 tablet by mouth 2 times a day. Take on Day 4 of cycle and then take PRN 30 tablet 5 11/08/2024 pantoprazole (Protonix) 40 MG EC tablet Take 1 tablet by mouth daily. Do not crush, chew, or split. pen needle, diabetic 31G X 5 MM misc Use as directed with insulin pen. 100 each 11 10/31/2024 Probiotic, Lactobacillus, capsule Take 1 capsule by mouth daily. 30 capsule 1 11/08/2024 prochlorperazine (Compazine) 10 MG tabletIndication s:Extensive stage primary small cell carcinoma of lung Take 1 tablet by mouth every 6 hours as needed for nausea or vomiting. 30 tablet 3 11/08/2024 rOPINIRole (Requip) 1 MG tablet Take 1 [...] every 12 hours. 10 tablet 10/18/2024 5 omeprazole (PriLOSEC) [address] capsule Take 1 capsule by mouth daily. 5 tiZANidine (Zanaflex) 2 MG tablet Take 1 tablet by mouth nightly. 5 documented as of this encounter Plan of Treatment Upcoming Encounters Date Type Department Care Team ([facility] st Contact Info) Description 11/29/2024 10:30 AM EDT Clinical Support [facility] [address] [facility], [address]nd [place] [phone] 11/29/2024 11:00 AM EDT Office Visit [facility] [address] [facility], [address] [place] [address] Satnam Colvin MD [address] [facility] Nuria Degroot [facility] [address] [place] [address] 11/29/2024 12:30 PM EDT Appointment [facility] [address] [place] [phone] 11/30/2024 1:30 PM EDT Appointment [facility] [address] [place] [address] 12/01/2024 2:00 PM EDT Appointment [facility] [address] [place] [address] 12/06/2024 11:40 AM EDT Appointment [facility] Radiation [address] [facility]. [id number] [place] [address] Haven Blum, BULK FOLDER 800 [facility] [address] [place] [phone] 01/19/2025 9:30 AM EDT Appointment [facility] Radiology [address], [address] [place] [phone] 01/19/2025 10:45 AM EDT Office Visit [place] [facility] [address], [address]st [place] [address] Abhilash Bangura MD [address] [place] [address] 03/08/2025 1:00 PM EDT Office Visit [facility] [place] Wenceslao [address] [place] [address] Teresita Oconnell MD [address] [place] [address] documented as of this encounter Visit Diagnoses Diagnosis Extensive stage primary small cell carcinoma of lung- Primary documented in this encounter Administered Medications Inactive Administered Medications - up to 3 most recent administrations Medication Order MAR Action Action Date Dose Rate Site aprepitant (Cinvanti) 130 MG/18ML IV 130 mg 130 mg, Intravenous, Once, 1 dose, On Thu11/08/24 at 1430, RoutineIndications:Exten sive stage primary small cell carcinoma of lung New 11/08/2024 3:13 PM EDT 130 mg Atezolizumab-Hyaluronida se-tqjs (Tecentriq Hybreza) [id number] MG-UT/15ML injection solution 1,875 mg 1,875 mg, Subcutaneous, Once, 1 dose, On Thu11/08/24 at 1500, RoutineIndications:Exten sive stage primary small cell carcinoma of lung New Bag 11/08/2024 3:17 PM EDT 1,875 mg Left Outer Thigh CARBOplatin (Paraplatin) 620 mg in sodium chloride 0.9 % 250 mL IVPB 620 mg (rounded from 622 mg, Target AUC = 5), Intravenous, at 714 mL/hr, Administer over 30 Minutes, Once, Hazardous Drug-Tier 1 Precautions. Dispose in BLACK Hazardous Waste Container. Chemotherapy: refer to [id number]., On Thu11/08/24 at 1515, For 1 dose, Pharmacist to calculate carboplatin dose based on today's Scr. If dose changes by > 5%, verify new dose with physician.Indications:Ex tensive stage primary small cell carcinoma of lung [facility] 11/08/2024 3:34 PM EDT 620 mg 714 mL/hr dexamethasone (Decadron) tablet 12 mg 12 mg, Oral, Once, 1 dose, On Thu11/08/24 at 1430, RoutineIndications:Exten sive stage primary small cell carcinoma of lung Given 11/08/2024 2:17 PM EDT 12 mg etoposide (Toposar) 220 mg in sodium chloride 0.9 % 500 mL IVPB 220 mg (rounded from 226 mg = 100 mg/m2 2.26 m2 Treatment Plan BSA from Recorded weight), Intravenous, at 576 mL/hr, Administer over 60 Minutes, Once, Hazardous Drug-Tier 1 Precautions. Dispose in BLACK Hazardous Waste Container. Use 0.2 micron filter. Chemotherapy: refer to [id number]., On Thu11/08/24 at 1545, For 1 dose, NS 500 mL; Precipitation may occur with concentrations >0.4 mg/mL. Larger diluent volumes may be warranted dependent upon the patient's weight.Indications:Exten sive stage primary small cell carcinoma of lung [facility] 11/08/2024 4:08 PM EDT 220 mg 576 mL/hr magnesium oxide (Mag-Ox) tablet 400 mg 400 mg, Oral, Once as needed, 1 dose, Starting on Thu11/08/24 at 1404, Until Thu11/08/24 at 1418, Routine, For magnesium value 1.5 to 1.8 and patient having LESS THAN or EQUAL to 3 loose stools per dayIndications:Extensive stage primary small cell carcinoma of lung Given 11/08/2024 2:18 PM EDT 400 mg ondansetron ODT (Zofran-ODT) disintegrating tablet 16 mg 16 mg, Oral, Once, 1 dose, On Thu11/08/24 at 1430, RoutineIndications:Exten sive stage primary small cell carcinoma of lung Given 11/08/2024 2:17 PM EDT 16 mg documented in this encounter Additional Health Concerns Infection Onset Date Last Indicated Resolved Time 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, ECHO TECHNOLOGIST Panic 10/26/2024 10/31/2024 Assessment Noted Time PHQ-9 Depression Total Score: 0 09/01/19 3:26 PM EDT A fall risk assessment has been complete d for the patient 11/08/2024 2:02 PM EDT A Body Mass Index follow-up plan has been documented for the patient 11/08/2024 5:14 PM EDT documented as of this encounter Care Teams Soliciting Freight Agent Relationship Specialty Start Date End Date Laurie Gutierrez MD [address] [place] [id number] PCP - General 12/09/23 Joshua Martínez MD [address] [place] [phone] Consulting Physician Radiation Oncology 09/19/24 documented as of this encounter
--- OUTSIDE RECORDS SUMMARY | 2024-11-08 14:00 | XMS_ITS | Encounter Summary ---
Author Organization Healthcare Address [address] [place] [address] Care Team Providers Care Tray Server Name Role Phone Laurie Gutierrez MD Primary Care Provider Joshua Martínez MD Unavailable Reason for Visit * Episode Based Medications (Routine) - Authorized Specialty Diagnoses / Procedures Referred By Contac t Referred To Contact Diagnoses Extensive stage primary small cell carcinoma of lung Procedures CARBOplatin / Etoposide Daily x 3 / Atezolizumab Every 21 Days Satnam Colvin MD [address] [facility] Nuria Degroot [address] [address] Phone: tel: fax: Satnam Colvin MD [address] [facility] Nuria Degroot [address] [address] Phone: tel: fax: Referral ID Status Reason Start Date Expiration Date V isits Requested Visits Authorized [id number] Authorized 10/04/2024 04/05/2026 1 16 Encounter Details Date Type Department Care Team (Latest Contact Info) Description 11/08/2024 2:00 PM EDT - 11/08/2024 11:59 PM EDT Hospital Encounter [facility] 1 [address] [place] [address] Extensive stage primary small cell carcinoma of [...] first t laurie in the morning (EYE-FLIGHT INSPECTOR) to steady your nerves or to get rid of a hangover? 0 10/27/2024 CAGE Questionnaire Score 0 025 Utilities Answer Date Recorded In the past 12 months has th e [employer], gas, oil, or water company threatened to [...] a day 22 g 11/08/2024 nystatin (Mycostatin) 239307 UNIT/GM powder Apply on bottom 2 times [...] by mouth daily. 30 capsule 1 11/08/2024 5 prochlorperazine (Compazine) 10 MG tabletIndication s:Extensive [...] [facility] [address] [facility], [address]nd [place] [phone] 11/29/2024 11:00 AM EDT Office Visit [facility] [address] [facility], [address] [place] [address] Satnam Colvin MD [address] [facility] Nuria Degroot [facility] [address] [place] [address] 11/29/2024 12:30 PM EDT Appointment [facility] 1 [address] [place] [phone] 11/30/2024 1:30 PM EDT Appointment [facility] 1 [address] [place] [address] 12/01/2024 2:00 PM EDT Appointment [facility] 1 [address] [place] [address] 12/06/2024 11:40 AM EDT Appointment [facility] Radiation [address] [facility]. [id number] [place] [address] Haven Blum, MANAGER PROGRAMMING 800 [facility] [address] [place] [phone] 01/19/2025 9:30 AM EDT Appointment [facility] [address] [place] [phone] 01/19/2025 10:45 AM EDT Office Visit [place] [facility] [address], [address] [place] [address] Abhilash Bangura MD [address] [place] [address] 03/08/2025 1:00 PM EDT Office Visit [facility] [place] Wenceslao 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, SKID ROAD WORKER Panic 10/26/2024 10/31/2024 Assessment Noted Time PHQ-9 Depression Total Score: 0 09/01/19 3:26 PM EDT A fall risk assessment has been complete d for the patient 11/08/2024 2:02 PM EDT A Body Mass Index follow-up plan has been documented for the patient 11/08/2024 5:14 PM EDT documented as of this encounter Care Teams Tray Server Relationship Specialty Start Date End Date Laurie Gutierrez MD [address] [place] [address] PCP - General 12/09/23 Joshua Martínez MD [address] [place] [phone] Consulting Physician Radiation Oncology 09/19/24 documented as of this encounter
--- OUTSIDE RECORDS SUMMARY | 2024-11-09 14:49 | XMS_ITS | Encounter Summary ---
Author Organization Healthcare Address [address] [place] [address] Care Team Providers Care Alternative Financing Specialist Name Role Phone Laurie Gutierrez MD Primary Care Provider [phone] Joshua Martínez MD Unavailable Reason for Visit * Episode Based Medications (Routine) - Authorized Specialty Diagnoses / Procedures Referred By Contac t Referred To Contact Diagnoses Extensive stage primary small cell carcinoma of lung Procedures CARBOplatin / Etoposide Daily x 3 / Atezolizumab Every 21 Days Satnam Colvin MD 800 [facility] [address] [address] Phone: tel: fax: Satnam Colvin MD 800 [facility] [place] [address] [address] Phone: tel: fax: Referral ID Status Reason Start Date Expiration Date V isits Requested Visits Authorized [id number] Authorized 10/04/2024 04/05/2026 1 16 Encounter Details Date Type Department Care Team (Latest Contact Info) Description 11/09/2024 2:49 PM EDT - 11/09/2024 11:59 PM EDT Hospital Encounter [facility] [address] [place] [address] Extensive stage primary small cell carcinoma of [...] drink first t laurie in the morning (EYE-WAD BLANKING PRESS ADJUSTER) to steady your nerves or to get rid of a hangover? 0 10/27/2024 CAGE Questionnaire Score 0 025 Utilities Answer Date Recorded In the past 12 months has th e [employer], gas, oil, or water company threatened to shut off services in your home? No 10/26/2024 Comments No Sex and Gender Information Value Date Recorded Sex Assigned at Not on file Legal Sex Female 8:32 PM EDT Gender Identity Not on file Sexual Orientation Not on file documented as of this encounter Last Filed Vital Signs Vital Sign Reading Time Taken Comments Blood Pressure 99/66 11/09/2024 4:23 PM EDT Pulse 98 11/09/2024 4:23 PM EDT Temperature 36.4 C (97.5 F) 11/09/2024 2:50 PM EDT Respiratory Rate 20 11/09/2024 2:50 PM EDT Oxygen Saturation 95% 11/09/2024 2:50 PM EDT Inhaled Oxygen Concentration - - Weight 118 kg (260 lb 12.9 oz) 11/09/2024 2:50 P M EDT Height 170.2 cm (5' 7 ) 11/09/2024 2:50 PM EDT Body Mass Index 40.85 11/09/2024 2:50 PM EDT documented in this encounter Medications [...] a day 22 g 11/08/2024 nystatin (Mycostatin) 451988 UNIT/GM powder Apply on bottom 2 times [...] [facility] Head[facility] Neck [facility] Respiratory [address] [facility], 2nd [place] [address] 11/29/2024 11:00 AM EDT Office Visit [facility] [address] [facility], 2nd [place] [address] Satnam Colvin MD 800 [facility] [address] [place] [address] 11/29/2024 12:30 PM EDT Appointment [facility] [address] [place] [address] 11/30/2024 1:30 PM EDT Appointment [facility] 1 [address] [place] [address] 12/01/2024 2:00 PM EDT Appointment [facility] [address] [place] [address] 12/06/2024 11:40 AM EDT Appointment [facility] Radiation [address] [facility]. [id number] [place] [address] Haven Blum, PRINCIPAL QUALITY ENGINEER [address] [facility] [address] [place] [address] 01/19/2025 9:30 AM EDT Appointment [facility] Radiology [address], 1st [place] [address] 01/19/2025 10:45 AM EDT Office Visit [place] [facility] [address], 1st [place] [address] Abhilash Bangura MD [address] [place] [address] 03/08/2025 1:00 PM EDT Office Visit [facility] [place] [facility] [address] [place] [address] Teresita Oconnell MD [address] [place] [address] documented as of this encounter [...] micron filter. Chemotherapy: refer to [id number]., On Thu11/09/24 at 1545, For 1 dose, NS 500 mL; Precipitation may occur with concentrations >0.4 mg/mL. 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, CLERK SPECIALIST Panic 10/26/2024 10/31/2024 Assessment Noted Time PHQ-9 Depression Total Score: 0 09/01/19 3:26 PM EDT A fall risk assessment has been complete d for the patient 11/09/2024 2:52 PM EDT A Body Mass Index follow-up plan has been documented for the patient 11/08/2024 5:14 PM EDT documented as of this encounter Care Teams Alternative Financing Specialist Relationship Specialty Start Date End Date Laurie Gutierrez MD [address] [place] [address] PCP - General 12/09/23 Joshua Martínez MD [address] [place] [phone] Consulting Physician Radiation Oncology 09/19/24 documented as of this encounter
--- OUTSIDE RECORDS SUMMARY | 2024-11-09 14:49 | XMS_ITS | Encounter Summary ---
Author Organization Healthcare Address [address] [place] [address] Care Team Providers Care Printing Table Worker Name Role Phone Laurie Gutierrez MD Primary Care Provider [phone] Joshua Martínez MD Unavailable Reason for Visit * Episode Based Medications (Routine) - Authorized Specialty Diagnoses / Procedures Referred By Contac t Referred To Contact Diagnoses Extensive stage primary small cell carcinoma of lung Procedures CARBOplatin / Etoposide Daily x 3 / Atezolizumab Every 21 Days Satnam Colvin MD 800 [facility] [address] [address] Phone: tel: fax: Satnam Colvin MD 800 [facility] [address] [address] Phone: tel: fax: Referral ID Status Reason Start Date Expiration Date V isits Requested Visits Authorized [id number] Authorized 10/04/2024 04/05/2026 1 16 Encounter Details Date Type Department Care Team (Latest Contact Info) Description 11/09/2024 2:49 PM EDT - 11/09/2024 11:59 PM EDT Hospital Encounter [facility] 2 [address] [place] [address] Extensive stage primary small cell carcinoma of [...] drink first t laurie in the morning (EYE-SHINGLES ROOFER) to steady your nerves or to get rid of a hangover? 0 10/27/2024 CAGE Questionnaire Score 0 025 Utilities Answer Date Recorded In the past 12 months has th e [employer], gas, oil, or water company threatened to [...] a day 22 g 11/08/2024 nystatin (Mycostatin) 828046 UNIT/GM powder Apply on bottom 2 times [...] Pav [facility] Head[facility]ck [facility] Respiratory [address] [facility], 2nd [place] [address] 11/29/2024 11:00 AM EDT Office Visit [facility] Head[facility]ck [facility] Respiratory [address] [facility], 2nd [place] [address] Satnam Colvin MD [address] [facility] [address] [place] [address] 11/29/2024 12:30 PM EDT Appointment [facility] 1 [address] [place] [address] 11/30/2024 1:30 PM EDT Appointment [facility] 1 [address] [place] [address] 12/01/2024 2:00 PM EDT Appointment [facility] 1 [address] [place] [address] 12/06/2024 11:40 AM EDT Appointment [facility] Radiation [address] [facility]. [id number] [place] [address] Haven Blum, TELEPHONE REPAIRER [address] [facility] [address] [place] [address] 01/19/2025 9:30 AM EDT Appointment [facility] [address], [address]st [place] [address] 01/19/2025 10:45 AM EDT Office Visit [place] [facility] [address], [address]st [place] [address] Abhilash Bangura MD [address] [place] [address] 03/08/2025 1:00 PM EDT Office Visit [facility] [place] [facility] 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, CROZER Panic 10/26/2024 10/31/2024 Assessment Noted Time PHQ-9 Depression Total Score: 0 09/01/19 3:26 PM EDT A fall risk assessment has been complete d for the patient 11/09/2024 2:52 PM EDT A Body Mass Index follow-up plan has been documented for the patient 11/08/2024 5:14 PM EDT documented as of this encounter Care Teams Printing Table Worker Relationship Specialty Start Date End Date Laurie Gutierrez MD [address] [place] [address] PCP - General 12/09/23 Joshua Martínez MD [address] [place] [phone] Consulting Physician Radiation Oncology 09/19/24 documented as of this encounter
--- OUTSIDE RECORDS SUMMARY | 2024-11-10 14:39 | XMS_ITS | Encounter Summary ---
Author Organization Healthcare Address [address] [place] [address] Care Team Providers Care Signal Maintainer Name Role Phone Laurie Gutierrez MD Primary Care Provider [phone] Joshua Martínez MD Unavailable Reason for Visit * Episode Based Medications (Routine) - Authorized Specialty Diagnoses / Procedures Referred By Contac t Referred To Contact Diagnoses Extensive stage primary small cell carcinoma of lung Procedures CARBOplatin / Etoposide Daily x 3 / Atezolizumab Every 21 Days Satnam Colvin MD 800 [facility] Nuria Degroot [address] [address] Phone: tel: fax: Satnam Colvin MD 800 [facility] Nuria Degroot [address] [address] Phone: tel: fax: Referral ID Status Reason Start Date Expiration Date V isits Requested Visits Authorized [id number] Authorized 10/04/2024 04/05/2026 1 16 Encounter Details Date Type Department Care Team (Latest Contact Info) Description 11/10/2024 2:39 PM EDT - 11/10/2024 11:59 PM EDT Hospital Encounter [facility] 1 [address] [place] [address] Extensive stage primary small cell carcinoma of [...] drink first t laurie in the morning (EYE-MICA PLATE LAYER HAND) to steady your nerves or to get [...] a day 22 g 11/08/2024 nystatin (Mycostatin) 743048 UNIT/GM powder Apply on bottom 2 times [...] Upcoming Encounters Date Type Department Care Team ([facility] st Contact Info) Description 11/29/2024 10:30 AM EDT Clinical Support [facility] Respiratory 800 [facility], 2nd [place] [address] 11/29/2024 11:00 AM EDT Office Visit [facility] Respiratory 800 [facility], 2nd [place] [address] Satnam Colvin MD 800 [facility] [address] [place] [address] 11/29/2024 12:30 PM EDT Appointment [facility] 1 [address] [place] [address] 11/30/2024 1:30 PM EDT Appointment [facility] 1 [address] [place] [address] 12/01/2024 2:00 PM EDT Appointment [facility] 1 [address] [place] [address] 12/06/2024 11:40 AM EDT Appointment [facility] Radiation 800 [facility]. [id number] [place] [address] Haven Blum, GATE TENDER 800 [facility] [address] [place] [address] 01/19/2025 9:30 AM EDT Appointment [facility] Radiology [address], 1st [place] [address] 01/19/2025 10:45 AM EDT Office Visit [place] [facility] [address], 1st [place] [address] Abhilash Bangura MD [address] [place] [address] 03/08/2025 1:00 PM EDT Office Visit [facility] [place] [facility] 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, THREAD MARKER Panic 10/26/2024 10/31/2024 Assessment Noted Time PHQ-9 Depression Total Score: 0 09/01/19 3:26 PM EDT A fall risk assessment has been complete d for the patient 11/10/2024 2:43 PM EDT A Body Mass Index follow-up plan has been documented for the patient 11/08/2024 5:14 PM EDT documented as of this encounter Care Teams Signal Maintainer Relationship Specialty Start Date End Date Matt, Sullivan, MD [address] [place] [address] PCP - General 12/09/23 Joshua Martínez MD [address] [place] [address] Consulting Physician Radiation Oncology 09/19/24 documented as of this encounter
--- OUTSIDE RECORDS SUMMARY | 2024-11-10 14:39 | XMS_ITS | Encounter Summary ---
Author Organization Healthcare Address [address] [place] [address] Care Team Providers Care Telephone Lines Repairer Name Role Phone Laurie Gutierrez MD Primary Care Provider Joshua Martínez MD Unavailable Reason for Visit * Episode Based Medications (Routine) - Authorized Specialty Diagnoses / Procedures Referred By Contac t Referred To Contact Diagnoses Extensive stage primary small cell carcinoma of lung Procedures CARBOplatin / Etoposide Daily x 3 / Atezolizumab Every 21 Days Satnam Colvin MD 800 [facility] Nuria Degroot [address] [address] Phone: tel: fax: Satnam Colvin MD 800 [facility] Nuria Degroot [address] [address] Phone: tel: fax: Referral ID Status Reason Start Date Expiration Date V isits Requested Visits Authorized [id number] Authorized 10/04/2024 04/05/2026 1 16 Encounter Details Date Type Department Care Team (Latest Contact Info) Description 11/10/2024 2:39 PM EDT - 11/10/2024 11:59 PM EDT Hospital Encounter [facility] 1 [address] [place] [address] Extensive stage primary small cell carcinoma of [...] any time in the past 12 m [facility], were you homeless or living [...] any time in the past 12 m [facility], were you homeless or living [...] drink first t laurie in the morning (EYE-SPECK DYER) to steady your nerves or to [...] a day 22 g 11/08/2024 nystatin (Mycostatin) 265542 UNIT/GM powder Apply on bottom 2 times [...] Upcoming Encounters Date Type Department Care Team ([facility] st Contact Info) Description 11/29/2024 10:30 AM EDT Clinical Support Pav [facility] Head, Neck & Respiratory 800 [facility], 2nd [place] [address] 11/29/2024 11:00 AM EDT Office Visit [facility] Head[facility] Neck [facility] Respiratory 800 [facility], 2nd [place] [address] Satnam Colvin MD 800 [facility] Nuria [address] [place] [address] 11/29/2024 12:30 PM EDT Appointment [facility] 1 [address] [place] [address] 11/30/2024 1:30 PM EDT Appointment [facility] 1 [address] [place] [address] 12/01/2024 2:00 PM EDT Appointment [facility] 1 [address] [place] [address] 12/06/2024 11:40 AM EDT Appointment [facility] Radiation 800 [facility]. [id number] [place] [address] Haven Blum, COMPASS OPERATOR [address] [facility] [address] [place] [address] 01/19/2025 9:30 AM EDT Appointment [facility] Radiology [address], 1st [place] [address] 01/19/2025 10:45 AM EDT Office Visit [place] [facility] [address], 1st [place] [address] Abhilash Bangura MD [address] [place] [address] 03/08/2025 1:00 PM EDT Office Visit [facility] [place] [facility] 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, TIRE GROOVER Panic 10/26/2024 10/31/2024 Assessment Noted Time PHQ-9 Depression Total Score: 0 09/01/19 3:26 PM EDT A fall risk assessment has been complete d for the patient 11/10/2024 2:43 PM EDT A Body Mass Index follow-up plan has been documented for the patient 11/08/2024 5:14 PM EDT documented as of this encounter Care Teams Telephone Lines Repairer Relationship Specialty Start Date End Date Matt, Sullivan, MD [address] [place] [address] PCP - General 12/09/23 Joshua Martínez MD [address] [place] [address] Consulting Physician Radiation Oncology 09/19/24 documented as of this encounter
--- OUTSIDE RECORDS SUMMARY | 2024-11-14 08:45 | XMS_ITS | Encounter Summary ---
Author Organization Healthcare Address [address] [place] [address] Care Team Providers Care Player Manager Name Role Phone Laurie Gutierrez MD Primary Care Provider [phone] Joshua Martínez MD Unavailable Encounter Details Date Type Department Care Team (Latest Contact Info) Description 11/14/2024 8:45 AM EDT - 11/14/2024 11:59 PM EDT Hospital Encounter [facility] [id number] [place] [address] Discharge Disposition: Still a Patient 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 [...] time in the past [address] [facility], were you homeless or living in a [...] time in the past [address] [facility], were you homeless or living in a [...] drink first t laurie in the morning (EYE-BOARD CERTIFIED MUSIC THERAPIST) to steady your nerves or to get [...] a day 22 g 11/08/2024 nystatin (Mycostatin) 777643 UNIT/GM powder Apply on bottom 2 times [...] capsule Take 1 capsule by mouth daily. tiZANidine (Zanaflex) 2 MG tablet Take 1 tablet by mouth nightly. 5 documented as of this encounter Plan of Treatment Upcoming Encounters Date Type Department Care Team ([facility] st Contact Info) Description 11/29/2024 10:30 AM EDT Clinical Support [facility] Neck [facility] Respiratory 800 [facility], 2nd [place] [address] 11/29/2024 11:00 AM EDT Office Visit [facility] Respiratory [address] [facility], 2nd [place] [address] Satnam Colvin MD 800 [facility] [address] [place] [address] 11/29/2024 12:30 PM EDT Appointment [facility] 1 [address] [place] [address] 11/30/2024 1:30 PM EDT Appointment [facility] 1 [address] [place] [address] 12/01/2024 2:00 PM EDT Appointment [facility] 1 [address] [place] [address] 12/06/2024 11:40 AM EDT Appointment [facility] [address] [facility]. [id number] [place] [address] Haven Blum, GAS STATION MANAGER [address] [facility] [address] [place] [address] 01/19/2025 9:30 AM EDT Appointment [facility] [address]st [place] [address] 01/19/2025 10:45 AM EDT Office Visit [place] [facility] [address], 1st [place] [address] Abhilash Bangura MD [address] [place] [address] 03/08/2025 1:00 PM EDT Office Visit [facility] [place] [facility] 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, NEW ACCOUNT INTERVIEWER Panic 10/26/2024 10/31/2024 Assessment Noted Time PHQ-9 Depression Total Score: 0 09/01/19 3:26 PM EDT A fall risk assessment has been complete d for the patient 11/10/2024 2:43 PM EDT A Body Mass Index follow-up plan has been documented for the patient 11/08/2024 5:14 PM EDT documented as of this encounter Care Teams Player Manager Relationship Specialty Start Date End Date Laurie Gutierrez MD [address] [place] [address] PCP - General 12/09/23 Joshua Martínez MD [address] [place] [address] Consulting Physician Radiation Oncology 09/19/24 documented as of this encounter
--- OUTSIDE RECORDS SUMMARY | 2024-11-14 08:45 | XMS_ITS | Encounter Summary ---
Author Organization Healthcare Address [address] [place] [address] Care Team Providers Care Television Tube Inspector Name Role Phone Laurie Gutierrez MD Primary Care Provider [phone] Joshua Martínez MD Unavailable Encounter Details Date Type Department Care Team (Latest Contact Info) Description 11/14/2024 8:45 AM EDT - 11/14/2024 11:59 PM EDT Hospital Encounter [facility] Radiation [id number] [place] [address] Discharge Disposition: Still a Patient 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 [...] first t laurie in the morning (EYE-ROTARY VENEER MACHINE OPERATOR) to steady your nerves or [...] a day 22 g 11/08/2024 nystatin (Mycostatin) 261292 UNIT/GM powder Apply on bottom 2 times [...] tablet Take 1 tablet by mouth nightly. Xarelto 20 MG tablet Take 1 tablet by mouth every evening. 5 documented as of this encounter Plan of Treatment Upcoming Encounters Date Type Department Care Team ([facility] st Contact Info) Description 11/29/2024 10:30 AM EDT Clinical Support [facility] Res[facility] [address] [facility], [address]nd [place] [address] 11/29/2024 11:00 AM EDT Office Visit [facility] [address] [facility], [address]nd [place] [address] Satnam Colvin MD [address] [facility] [address] [place] [address] 11/29/2024 12:30 PM EDT Appointment [facility] 1 [address] [place] [address] 11/30/2024 1:30 PM EDT Appointment [facility] 1 [address] [place] [address] 12/01/2024 2:00 PM EDT Appointment [facility] 1 [address] [place] [address] 12/06/2024 11:40 AM EDT Appointment [facility] [address] [id number] [place] [address] Haven Blum, BIOMEDICAL EQUIPMENT SUPPORT SPECIALIST [address] [facility] [address] [place] [address] 01/19/2025 9:30 AM EDT Appointment [facility] S Radiology [address] [place] [id number] 01/19/2025 10:45 AM EDT [facility] Visit [facility] [address], [address] [place] [address] Abhilash Bangura MD [address] [place] [address] 03/08/2025 1:00 PM EDT Office Visit [facility] [facility] 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, HARDBOARD FACTORY WORKER Panic 10/26/2024 10/31/2024 Assessment Noted Time PHQ-9 Depression Total Score: 0 09/01/19 3:26 PM EDT A fall risk assessment has been complete d for the patient 11/10/2024 2:43 PM EDT A Body Mass Index follow-up plan has been documented for the patient 11/08/2024 5:14 PM EDT documented as of this encounter Care Teams Television Tube Inspector Relationship Specialty Start Date End Date Laurie Gutierrez MD [address] [place] [address] PCP - General 12/09/23 Joshua Martínez MD [address] [place] [address] Consulting Physician Radiation Oncology 09/19/24 documented as of this encounter
--- OUTSIDE RECORDS SUMMARY | 2024-11-15 16:42 | XMS_ITS | Encounter Summary ---
Author Organization Healthcare Address [address] [place] [address] Care Team Providers Care Stunner And Shackler Name Role Phone Laurie Gutierrez MD Primary Care Provider [phone] Joshua Martínez MD Unavailable Reason for Visit * Reason Comments Trauma Alert Red * Auth/Cert (Routine) Specialty Diagnoses / Procedures Referred By Mackenzie carreon Referred To Contact Diagnoses SAH (subarachnoid hemorrhage) ([facility]) recent regine surgery at -new fall -traumatic brain bleed under surgical sight Giovany Vance MD [address] [address] Phone: tel: fax: [facility] Emergency Department [address] [place] [address] Phone: tel: Referral ID Status Reason Start Date Expiration Date Visits Re quested Visits Authorized [id number] 1 1 Encounter Details Date Type Department Care Team (Latest Contact Info) Description 11/15/2024 4:42 PM EDT - 11/16/2024 3:39 PM EDT Hospital Encounter [facility] Emergency Department [address] [place] [address] Lona Ortiz MD [address] [place] [address] Giovany Vance MD [id number] [place] [address] Jojo Rapp MD [address] [place] [address] SAH (subarachnoid hemorrhage) (CMS/HCC) (Primary [...] in the past 12 m [facility], were you homeless or living [...] in the past 12 m [facility], were you homeless or living [...] first t laurie in the morning (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 0 10/27/2024 CAGE Questionnaire Score 0 025 Utilities Answer Date Recorded In the past 12 months has th e [employer], [employer], oil, or water [employer] threatened to shut off services in your [...] tablets by mouth every 6 hours. Under [place] law, monthly prescriptions (30 days) can be [...] a day 22 g 11/08/2024 nystatin (Mycostatin) 070510 UNIT/GM powder Apply on bottom 2 times [...] crush or chew. 90 tablet 11/01/2024 5 nitrofurantoin, macrocrystal-mon ohydrate, (Macrobid) 100 MG [...] call provider. 15 mL 3 10/31/2024 5 documented as of this encounter Miscellaneous Notes * Discharge Summary - Torrie Mustafa PA - 11/16/2024 3:39 PM EDT Hospitalization Admit Date/Time: 11/15/2024 4:42 PM Admitting Attending: Giovany Vance Discharge Date: 11/16/24 Discharge Attending Physician: Jojo Rapp MD PCP name and Address: Laurie Gutierrez MD [address] [place] [address] / [facility] [address] Referring provider name and address: Regina Katz, [address] [address] Chief Concern, Brief History of Present Illness, and Hospital Course HPI: Teresa Rivera is a 63 y.o. F with PMH of small cell lung cancer, s/p L frontal craniotomy formetastatic brain lesion resection on 09/05/24, on Xarelto for Afib (last dose 10/11), who [facility] an [facility] after falling [...] Follow up with Trauma clinic as needed. [address] [place] [address] First Floor, Wing [address] [address], #[phone]. Questions or Concerns and Appointments If there are questions or concerns after discharge from the hospital, please call [phone] and ask for Blue Surgery Nurse. Working hours are Thursday - Thursday 8:00 AM to 4:00 PM. After hours, weekends and holidays please call [phone] and ask for the resident installation supervisor for Blue Surgery. For appointments please call [phone]. Medication requests should be made between the hours of 9:00 AM to 3:00 PM Thursday thru Thursday. Please note that based upon recent changes to [place] law related to prescribing opioid pain medications, our providers will not provide refills on controlled medications after your hospital discharge following a major surgery or trauma. [place] 201 KAR9:260. Surgeries and Procedures Medication List .. acetaminophen 325 MG tablet Commonly known as: Tylenol Take 2 tablets by mouth every 6 hours. Under [place] law, monthly prescriptions (30 days) can be [...] Breztri Aerosphere 160-9-4.8 MCG/ACT aerosol Generic drug: Ikmezji-Huvpmfgzwbu-Axyyedqlfj Inhale 2 puffs 2 (two) times a [...] meals per correction scale as follows: blood [id number] use 2 units, 200-249 use 4 units, 250-299 use 6 units, 300-349 use 8 units, 350-399 use 10 units, >399 12 units and call provider. nystatin 767645 UNIT/GM powder Commonly known as: Mycostatin Apply [...] Your Medications These medications were sent to [facility] - [place], [place] - [address], [facility] [address] acetaminophen 325 MG tablet nitrofurantoin (macrocrystal-monohydrate) 100 [...] Time Provider Department Center 11/29/2024 10:30 AM [facility] JOSE MARTIN [facility] 11/29/2024 11:00 AM Satnam Colvin MD [facility] 11/29/2024 12:30 PM [facility] 1 INFUSION TREATMENT [id number] [facility] 11/30/2024 1:30 PM [facility] 1 INFUSION TREATMENT [id number] [facility] 12/01/2024 2:00 PM [facility] 1 INFUSION TREATMENT [id number] [facility] 12/06/2024 11:40 AM Haven Blum [facility]N [facility] 01/19/2025 9:30 AM GS MR 2 [facility] 01/19/2025 10:45 AM Abhilash Bangura MD [facility] 03/08/2025 1:00 PM Teresita Oconnell MD [facility] I TRAUMA SURGERY TERTIARY SURVEY I performed a complete tertiary exam, reviewed patient history, lab studies and all available imaging. All traumatic or incidental findings have been documented as below: Past Medical History: Active Ambulatory Problems Diagnosis Date Noted Right leg weakness 09/01/2024 Brain mass 08/31/2024 Obesity (BMI 35.0-39.9 without comorbidity) 09/02/2024 Morbid obesity with BMI of 40.0-44.9, adult (CMS/HCC) 09/02/2024 Extensive stage primary small cell carcinoma of lung 09/09/2024 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[facility]) 09/09/2024 Subdural hemorrhage ([facility]) 10/12/2024 Abnormal uterine bleeding 01/01/2024 Acute cystitis without hematuria 12/07/2023 Acute frontal sinusitis, unspecified 03/28/2024 Acute upper respiratory infection, unspecified 05/16/2024 Allergic rhinitis 07/08/2024 Anemia 09/06/2024 Anesthesia of skin 09/03/2024 Antineoplastic chemotherapy induced pancytopenia ([facility]) 10/27/2023 Anxiety 10/25/2024 Arthralgia of multiple joints 08/25/2013 Arthralgia 08/25/2013 Atelectasis 09/01/2024 Atherosclerosis of aorta ([facility]) 09/01/2024 Atrophic vaginitis 03/24/2022 Bacteremia 10/28/2023 Cardiomegaly 06/24/2024 Chest pain, unspecified 08/12/2024 Acute exacerbation of chronic obstructive airways disease ([facility]) 10/25/2024 Chronic respiratory failure with hypoxia 10/28/2023 Cigarette smoker 03/24/2022 Compression of vein 09/01/2024 Congenital multiple renal cysts 07/08/2024 Congenital single renal cyst 05/31/2015 Dehydration 11/14/2023 Diabetes mellitus ([facility]) 08/25/2013 Type 2 diabetes mellitus [...] large intestine 10/26/2023 Hypomagnesemia 07/08/2024 Immunocompromised state ([facility]) 10/25/2024 Incontinence 10/25/2024 Irritable bowel syndrome 10/25/2024 Localized swelling, mass and lump, head 09/01/2024 Malignant neoplasm of upper lobe, right bronchus or lung ([facility]) 08/28/2023 Morbid (severe) obesity due to excess calories ([facility]) 09/09/2024 Cyst of kidney, acquired 09/01/2024 Multiple renal cysts 10/26/2023 Muscle weakness (generalized) 11/14/2023 Chemotherapy-induced nausea and vomiting 08/28/2023 Nausea and vomiting 04/03/2022 Hereditary and idiopathic neuropathy, unspecified 05/19/2024 Neuropathy 10/25/2024 Nonpyogenic thrombosis of intracranial venous system 08/31/2024 Cerebral edema ([facility]) 09/09/2024 Osteoarthritis 08/25/2013 Other abnormalities of gait and mobility 09/06/2024 Other chronic pain 09/07/2024 Other disorders of lung 09/01/2024 Other fatigue 07/08/2024 Weakness 09/06/2024 Other malaise 09/17/2024 Other sequelae of other nontraumatic intracranial hemorrhage 09/17/2024 Other symptoms and signs involving the musculoskeletal system 09/03/2024 Pain in right foot 02/05/2024 Pain in right toe(s) 02/25/2024 Palpitations 11/17/2023 Paroxysmal atrial fibrillation ([facility]) 09/06/2024 A-fib ([facility]) 08/31/2024 Plantar fascial fibromatosis 04/11/2024 [...] 2 diabetes mellitus with diabetic neuropathy, unspecified ([facility]) 11/20/2023 Hyperglycemia due to diabetes mellitus ([facility]) 05/31/2015 Unspecified abnormalities of gait and mobility 09/17/2024 Unspecified acute conjunctivitis, right eye 03/28/2024 Unspecified right bundle-branch block 08/31/2024 Urethral caruncle 03/24/2022 UTI (urinary tract infection) 04/20/2024 Vertebrogenic low back pain 10/25/2024 Vitamin D deficiency 03/21/2024 Pneumonia of right upper lobe due to infectious organism 10/25/2024 Resolved Ambulatory Problems Diagnosis Date Noted Atrial flutter with rapid ventricular response ([facility]) 11/19/2023 Neutropenic fever ([facility]) 10/12/2024 Sepsis without acute organ dysfunction ([facility]) 10/12/2024 Subarachnoid hemorrhage ([facility]) 10/12/2024 Abdominal bloating 04/03/2022 Past Medical History: Diagnosis Date Brain tumor ([facility]) Personal history of other diseases of the [...] tablets by mouth every 6 hours. Under [place] law, monthly prescriptions (30 days) can be refilled at 25 days and three-month prescriptions (90 days) at 80 days. Please contact the insurance company with questions if refills are denied. 11/16/24 Yes Torrie Mustafa PA atorvastatin (Lipitor) 40 MG tablet Take 1 tablet by mouth every evening. Yes Jef Hendrickson MD benzonatate (Tessalon) 100 MG capsule Take 1 capsule by mouth 3 times a day as needed for cough. Donot crush or chew. 10/18/24 Yes Radha Slaughter MD Uuexblv-Kwyhkwqqsip-Esxmzlzxzj (Breztri Aerosphere) 160-9-4.8 MCG/ACT aerosol Inhale 2 puffs 2 (two) times a day. Yes Jef Hendrickson MD Calcium Carb-Cholecalciferol 600-10 MG-MCG tablet Take [...] morning. Do not crush or chew. 11/01/24 Sasha Lopez DO montelukast (Singulair) 10 MG tablet Take [...] 10/31/24 Yes Sasha Nuñez DO nystatin (Mycostatin) 078680 UNIT/GM powder Apply on bottom 2 times [...] SURGERY TUBAL LIGATION N/A Tubal Ligation from [employer] TYMPANOSTOMY TUBE PLACEMENT N/A Ear Surgery Eustachian Tube from [employer] [2] 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 Tobacco Use Smoking Status Former Current packs/day: 0.00 Average packs/day: 1.5 packs/day for 48.4 years (72.6 ttl pk-yrs) Types: Cigarettes Start date: 1975 Quit date: 10/17/2023 Years since quittin.0 Passive exposure: Past Smokeless Tobacco Never Cosigned by Jojo Rapp MD at 11/16/2024 3:55 PM EDT * Zachary LeahyBELKIS Pelletier Marcia L - 11/16/2024 3:01 PM EDT Images from the original note were not included. [id number] Fall Prevention Falls often take place due [...] medical history, your current prescriptions and your arfz-yxm-fvflokl medicines. As a general rule, the National [employer] (NCA) recommends taking one-third of [...] often. Last Reviewed Date: 2024 00:00:00 ?? [id number] [employer]. All rights reserved. This information is not intended as a substitute for professional medical care. Always follow your healthcare professional's instructions. * [facility] Marcia Pelletier - 11/16/2024 3:01 PM EDT Images from the original note were not included. [id number] After a Fall You have had a [...] color) Last Reviewed Date: 2022 00:00:00 ?? [id number] [employer]. All rights reserved. This information is not [...] Please call with any questions or concerns. [phone] Zachary Brown MD Resident Physician, PGY-2 Department of neurosurgery Pager: [phone] Cosigned by Abhilash Bangura MD at 11/17/2024 [...] lesion resection on 09/05/24 - Nsgy following * Hospital Course - Torrie Mustafa PA - 11/16/2024 3:43 AM EDT HPI: Teresa Rivera is a 63 y.o. F with PMH of small cell lung cancer, s/p L frontal craniotomy formetastatic brain lesion resection on 09/05/24, on Xarelto for Afib (last dose 10/11), who [facility] an OSH after falling [...] Follow up with Trauma clinic as needed. [address] [place] [address] First Floor, Wing [address] [place] [address], #[phone]. Questions or Concerns and Appointments If there are questions or concerns after discharge from the hospital, please call [phone] and ask for Blue Surgery Nurse. Working hours are Thursday - Thursday 8:00 AM to 4:00 PM. After hours, weekends and holidays please call [phone] and ask for the resident installation supervisor for Blue Surgery. For appointments please call [phone]. Medication requests should be made between the hours of 9:00 AM to 3:00 PM Thursday thru Thursday. Please note that based upon recent changes to [place] law related to prescribing opioid pain medications, [...] Evaluation: 2309 Arrival Date: 11/15 Arrival Time: 442 Referring Hospital: [facility] () Injury Date: 11/15 Transport Mode: Mode [...] vertex hemorrhage near prior tumor bed.No LOC. 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 Transferred from [facility] for concern of traumatic bleed beneath [...] kg (263 lb 7.2 oz), SpO2 92%. [place] Tk Coma Scale Best Eye Response: Spontaneous Best Verbal Response: Oriented Best Motor Response: Follows commands [place] Coma Scale Score: 15 Intubated No Recent [...] tablet 650 mg 650 mg Oral q6h [facility] Torrie Mustafa PA dextrose 5 % and lactated Ringer's [...] Donot crush or chew. 20 capsule 0 Gkhujhr-Zqynhmaxymi-Akiqcglkbn (Breztri Aerosphere) 160-9-4.8 MCG/ACT aerosol Inhale 2 [...] call provider. 15 mL 3 nystatin (Mycostatin) 016030 UNIT/GM powder Apply on bottom 2 times [...] from OSH s/p ground level fall at [facility] clinic where she had a follow-up appt. [...] SURGERY TUBAL LIGATION N/A Tubal Ligation from [employer] TYMPANOSTOMY TUBE PLACEMENT N/A Ear Surgery Eustachian Tube from [employer] Allergies: Cephalexin, Lisinopril, and Meloxicam Height/Weight: Ht [...] IX) as a bolus dose at 1944 (lot#[id number], factor IX 493 units/vial x10 vials). Monitoring: [...] vertex hemorrhage near prior tumor bed.No LOC. 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 Transferred from [facility] for concern of traumatic bleed beneath [...] SURGERY TUBAL LIGATION N/A Tubal Ligation from [employer] TYMPANOSTOMY TUBE PLACEMENT N/A Ear Surgery Eustachian Tube from [employer] [3] levETIRAcetam, 2,000 mg, Intravenous, Once [4] [...] were tending to patient. Per flight crew, shannan is on their way from about an [...] to Assess * Clinician Note - Zeke Randolph, RN - 11/15/2024 4:42 PM EDT Right [...] Care Transition * ED Provider Notes - Regine Ibrahim MD - 11/15/2024 4:42 PM EDT [...] baseline. Comments: Awake Psychiatric: Behavior: Behavior normal. [place] Coma Scale Score: 15 ED Course & [...] 0017 Date/Time Order Dose Route Action 11/15/2024 193 EDT levETIRAcetam (Keppra) injection 2,000 mg 2,000 [...] All Other Orders Ordered Status Ordering Provider 11/15/24 2223 Consult to Trauma Surgery Once Specialty: Trauma Surgery Provider: (Not yet assigned) Acknowledged REGINE IBRAHIM 11/15/24 1824 Once Canceled REGINE IBRAHIM 11/15/[address] Head wo IV Contrast Once Final result REGINE IBRAHIM 11/15/[address] Venogram Head Once Final result REGINE IBRAHIM 11/15/24 1856 Extra Tubes Once Final result LONA ORTIZ 11/15/24 1856 Gold Top PROCEDURE ONCE Final result LONA ORTIZ 11/15/24 1749 Trauma shock panel blood gas STAT Comments: Trauma Alert Final result REGINE IBRAHIM 11/15/24 1824 Inpatient consult to Neurosurgery Once Specialty: Neurosurgery Provider: (Not yet assigned) Completed REGINE IBRAHIM 11/15/24 1749 Vital Signs Every 1 hour Acknowledged REGINE IBRAHIM 11/15/24 174 Neuro checks Every 1 hour Acknowledged REGINE IBRAHIM 11/15/24 1749 2 Large Bore IV's Continuous Comments: 2 Large Bore IV's Acknowledged REGINE IBRAHIM 11/15/24 1749 Fire And Explosion Investigator Until discontinued Acknowledged REGINE IBRAHIM 11/15/24 1749 Continuous Pulse Oximetry Until discontinued Acknowledged REGINE IBRAHIM 11/15/24 1749 Oxygen Therapy - Device: Nasal Cannula Continuous Order ID Start Status Ordering Provider [id number] 11/15/24 1750 Completed REGINE IBRAHIM [id number] 11/15/241999 Completed REGINE IBRAHIM [id number] 11/16/24 0800 Acknowledged REGINE IBRAHIM [id number] 11/16/241999 Acknowledged REGINE IBRAHIM 11/17/24 0800 Scheduled REGINE IBRAHIM 11/17/241999 Scheduled REGINE IBRAHIM 11/18/24 0800 Scheduled REGINE IBRAHIM 11/18/241999 Scheduled REGINE IBRAHIM 11/19/24 0800 Scheduled REGINE IBRAHIM 11/19/241999 Scheduled REGINE IBRAHIM 11/20/24 0800 Scheduled REGINE IBRAHIM 11/20/241999 Scheduled REGINE IBRAHIM 11/21/24 0800 Scheduled REGINE IBRAHIM 11/21/241999 Scheduled REGINE IBRAHIM 11/22/24 0800 Scheduled REGINE IBRAHIM 11/22/241999 Scheduled REGINE IBRAHIM 11/23/24 0800 Scheduled REGINE IBRAHIM 11/23/241999 Scheduled REGINE IBRAHIM Acknowledged REGINE IBRAHIM 11/15/24 1749 CMP STAT Comments: Trauma Alert Final result REGINE IBRAHIM 11/15/24 1749 CBC w/o diff STAT Comments: Trauma Alert Final result REGINE IBRAHIM 11/15/24 1749 PT-INR STAT Comments: Trauma Alert Final result REGINE IBRAHIM 11/15/24 1749 APTT (PTT) STAT Comments: Trauma Alert Final result REGINE IBRAHIM 11/15/24 1749 Ethyl Alcohol Plasma STAT Comments: Trauma Alert Final result REGINE IBRAHIM 11/15/24 1749 Drug Abuse Screen, Urine STAT Comments: Trauma Alert Acknowledged REGINE IBRAHIM 11/15/24 1749 Urinalysis with reflex microscopic (Culture NOT Included) STAT Comments: Trauma Alert Acknowledged REGINE IBRAHIM 11/15/24 1749 Test Qualitative Plasma STAT Comments: Trauma Alert Final result REGINE IBRAHIM 11/15/24 1749 Type and Screen Start now Comments: Trauma Alert Final result REGINE IBRAHIM 11/15/24 1749 Trauma Alert Notification Once Completed REGINE IBRAHIM 11/15/24 1742 Initiate contact isolation Continuous Comments: Added via Instant Order OPA Acknowledged BPA, INSTANT ORDERS 11/15/24 1649 POCT glucose meter PROCEDURE ONCE Final result POCT, GENERIC PROVIDER ED Course as of 11/16/2416Nov 16, 202414 At the time of patient's arrival she was initially alerted as a trauma alert read due to her hypotension. However after patient was evaluated in the Trauma [place] she was quickly downgraded to a trauma [...] overnight [BR] ED Course User Index [BR] Regine Ibrahim MD Clinical Impressions as of 11/16/24 0017 SAH (subarachnoid hemorrhage) (CMS/HCC) SDH (subdural hematoma) [...] SURGERY TUBAL LIGATION N/A Tubal Ligation from [employer] TYMPANOSTOMY TUBE PLACEMENT N/A Ear Surgery Eustachian Tube from [employer] [3] Family History Problem Relation Name Age [...] - please document in the comment field Regine Ibrahim MD Resident 11/16/24 0017 Cosigned by [...] takes Eliquis for afib. EMV15,-LOC. 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 documented in this encounter Plan of Treatment Upcoming Encounters Date Type Department Care Team (Late st Contact Info) Description 11/29/2024 10:30 AM EDT Clinical Support [facility] [address]nd [place] [address] 11/29/2024 11:00 AM EDT Office Visit [facility] [address], [address] [place] [address] Satnam Colvin MD [address] [place] [address] 11/29/2024 12:30 PM EDT Appointment [facility] [address] [place] [address] 11/30/2024 1:30 PM EDT Appointment [facility] [address] [place] [address] 12/01/2024 2:00 PM EDT Appointment [facility] [address] [place] [address] 12/06/2024 11:40 AM EDT Appointment [facility] Radiation [id number] [place] [address] Haven Blum, AUTO BODY SERVICE MECHANIC [address] [place] [address] 01/19/2025 9:30 AM EDT Appointment [facility] S Radiology [address] [place] [address] 01/19/2025 10:45 AM EDT Office Visit [facility] [address] [place] [address] Abhilash Bangura MD [address] [place] [address] 03/08/2025 1:00 PM EDT Office Visit [facility] [place] [address] [place] [address] Teresita Oconnell MD [address] [place] [address] documented as of this encounter [...] Resistant Organisms Isolated 11/18/2024 9:10 AM EDT [facility] Swab (Nares and Carole Rectal) Non-blood Collection / Unknown 11/16/2024 1:41 AM EDT 11/16/2024 7:14 AM EDT Narrative [facility] - 11/18/2024 9:10 AM EDT This test was developed and its performance characteristics determined by the [facility]. Although the media is FDA-approved, it is not FDA-approved for all specimen types submitted. The FDA has determined that such clearance or approval is not necessary. This test is used for surveillance purposes. It should not be regarded as investigational or for research. The [facility] is certified under the Clinical Laboratory Improvement Amendments of 1988 (CLIA-88) as qualified to perform high complexity clinical laboratory testing. Giovany Vance MD LAB MICROBIOLOGY - GENERAL O RDERABLES Final Result Performing Organization Address [facility] Co de Phone Number [facility] [address] [place] [address] * Urinalysis Microscopic Examination (11/16/2024 1:14 AM EDT) Urine Urine specimen obtained by clean catch procedure / Unknown Non-blood Collection / Unknown 11/16/2024 1:14 AM EDT 11/16/2024 1:21 AM EDT Lona Ortiz MD LAB URINE ORDERABLES Final Result Performing Organization Address City/[facility] Co de Phone Number [facility] [address] [place] [address] * (ABNORMAL) Urinalysis with reflex microscopic (Culture NOT Included) (11/16/2024 1:14 AM EDT) Color, Urine [place] LAB URINALYSIS - AUTOMATED METHOD 11/16/2024 1:54 AM EDT [facility] Clarity, Urine Clear LAB URINALYSIS - AUTOMATED METHOD 11/16/2024 1:54 AM EDT [facility] Spec [place], Urine >1.030(H) 1.005 - 1.030 LAB URINALYSIS - AUTOMATED METHOD 11/16/2024 1:54 AM EDT [facility] pH, Urine 6.0 5.0 - 8.0 LAB URINALYSIS - AUTOMATED METHOD 11/16/2024 1:54 AM EDT [facility] Protein, Urine Trace(A) Negative mg/dL LAB URINALYSIS - AUTOMATED METHOD 11/16/2024 1:54 AM EDT [facility] Glucose, Urine >=1000(A) Negative mg/dL LAB URINALYSIS - AUTOMATED METHOD 11/16/2024 1:54 AM EDT [facility] Ketones, Urine Negative Negative mg/dL LAB URINALYSIS - AUTOMATED METHOD 11/16/2024 1:54 AM EDT [facility] Blood, Urine Trace(A) Negative LAB URINALYSIS - AUTOMATED METHOD 11/16/2024 1:54 AM EDT [facility] Bilirubin, Urine Negative Negative LAB URINALYSIS - AUTOMATED METHOD 11/16/2024 1:54 AM EDT [facility] Urobilinogen, Urine 0.2 0.2 to 1.0 mg/dL LAB URINALYSIS - AUTOMATED METHOD 11/16/2024 1:54 AM EDT [facility] Leukocytes, Urine Moderate(A) Negative LAB URINALYSIS - AUTOMATED METHOD 11/16/2024 1:54 AM EDT [facility] Nitrite, Urine Positive(A) Negative LAB URINALYSIS - AUTOMATED METHOD 11/16/2024 1:54 AM EDT [facility] RBC, Urine 1 0 to 3 /HPF 11/16/2024 1:54 AM EDT [facility] Comment:This result was prev iously suppressed from the chart. WBC, Urine 21 - 50(A) 0 to 5 /HPF 11/16/2024 1:54 AM EDT [facility] Comment:This result was prev iously suppressed from the chart. Squamous Epithelial Cells 0 - 2 0 to 5 /HPF 11/16/2024 1:54 AM EDT [facility] Comment:This result was prev iously suppressed from the chart. Hyaline Casts 0 - 2 0 to 5 /LPF 11/16/2024 1:54 AM EDT [facility] Comment:This result was prev iously suppressed from the chart. Bacteria, Urine Present Negative 11/16/2024 1:54 AM EDT [facility] Comment:This result was prev iously suppressed from the chart. Urine Urine specimen obtained by clean catch procedure / Unknown Non-blood Collection / Unknown 11/16/2024 1:14 AM EDT 11/16/2024 1:21 AM EDT Narrative [facility] - 11/16/2024 1:54 AM EDT Urinalysis dipstick results may be inaccurate due to specimen color or an interfering substance in the specimen. Performed by manual method us Lona Ortiz MD LAB URINE ORDERABLES Final Result [facility] [address] [place] [address] * Drug Abuse Screen, Urine (11/16/2024 1:14 AM EDT) Amphetamine Screen Urine Negative Cutoff: 500 ng/mL 11/16/2024 1:42 AM EDT [facility] Benzodiazepines Screen Urine Negative Cutoff: 200 ng/mL 11/16/2024 1:42 AM EDT [facility] Cannabinoid Screen Urine Negative Cutoff: 50 ng/mL 11/16/2024 1:42 AM EDT [facility] Cocaine Screen Urine Negative Cutoff: 300 ng/mL 11/16/2024 1:42 AM EDT [facility] Barbiturate Screen Urine Negative Cutoff: 200 ng/mL 11/16/2024 1:42 AM EDT [facility] Opiate Screen Urine Negative Cutoff: 300 ng/mL 11/16/2024 1:42 AM EDT [facility] Methadone Screen Urine Negative Cutoff: 300 ng/mL 11/16/2024 1:42 AM EDT [facility] Buprenorphine Screen Urine Negative Cutoff: 10 ng/mL 11/16/2024 1:42 AM EDT [facility] Fentanyl Screen Urine Negative Cutoff: 1 ng/mL 11/16/2024 1:42 AM EDT [facility] Oxycodone Screen Urine Negative Cutoff: 100 ng/mL 11/16/2024 1:42 AM EDT [facility] Urine Urine specimen obtained by clean catch procedure / Unknown Non-blood Collection / Unknown 11/16/2024 1:14 AM EDT 11/16/2024 1:21 AM EDT us Lona Ortiz MD LAB URINE ORDERABLES Final Result [facility] [address] [place] [address] * CT Venogram Head (11/15/2024 9:21 PM [...] Total DLP (Dose-Length Product): 1926.17 mGy.cm (accession [id number]), 1926.17 mGy.cm (accession [id number]). Please note: The reported value represents the [...] Total DLP (Dose-Length Product): 1926.17 mGy.cm (accession [id number]),1926.17 mGy.cm (accession [id number]). Please note: The reported valuerepresents the total [...] Total DLP (Dose-Length Product): 1926.17 mGy.cm (accession [id number]), 1926.17 mGy.cm (accession [id number]). Please note: The reported value represents the [...] Total DLP (Dose-Length Product): 1926.17 mGy.cm (accession [id number]),1926.17 mGy.cm (accession [id number]). Please note: The reported valuerepresents the total [...] LAB HEMATOLOGY METHOD 11/15/2024 8:21 PM EDT [facility] Bicarbonate, Calculated, Venous 29(H) 22 - 26 mmol/L LAB HEMATOLOGY METHOD 11/15/2024 8:21 PM EDT [facility] Base Excess, Venous 3.2(H) -2.0 - 3.0 mmol/L LAB HEMATOLOGY METHOD 11/15/2024 8:21 PM EDT [facility] Lactate, Venous, Whole Blood 1.8 0.5 - 2.2 mmol/L LAB HEMATOLOGY METHOD 11/15/2024 8:21 PM EDT [facility] Blood Venous blood specimen / Unknown Venipuncture / Unknown 11/15/2024 8:06 PM EDT 11/15/2024 8:20 PM EDT us Lona Ortiz MD LAB BLOOD ORDERABLES Final Result [facility] [address] [place] [address] * Type and Screen (11/15/2024 6:51 PM EDT) ABO/Rh O Positive 11/15/2024 5:50 PM EDT [facility] Antibody Screen Negative 11/15/2024 5:50 PM EDT [facility]LO[facility] Specimen Expiration 11/18/2024 23:59 11/15/2024 5:50 PM EDT [facility]LO[facility] Blood Venous blood specimen / Unknown Venipuncture / Unknown 11/15/2024 6:51 PM EDT 11/15/2024 7:03 PM EDT Lona Ortiz MD LAB BLOOD BANK TEST ORDERAB LES Final Result Performing Organization Address City/[facility]/ZIP Co de Phone Number BLOOD BANK [address] [place] [address], * Test Qualitative Plasma (11/15/2024 6:51 PM EDT) Test Negative Negative 11/15/2024 7:47 PM EDT [facility] Blood Venous blood specimen / Unknown Venipuncture / Unknown 11/15/2024 6:51 PM EDT 11/15/2024 6:56 PM EDT Narrative [facility] - 11/15/2024 7:47 PM EDT Reference Range: Males and non- females: Negative. Lona Ortiz MD LAB BLOOD ORDERABLES Final Result Performing Organization Address City/[facility]/ZIP Co de Phone Number [facility] [address] [place] [address] * Ethyl Alcohol Plasma (11/15/2024 6:51 PM EDT) Ethanol Plasma <10 <10 mg/dL 11/15/2024 7:19 PM EDT [facility] Blood Venous blood specimen / Unknown Venipuncture / Unknown 11/15/2024 6:51 PM EDT 11/15/2024 6:56 PM EDT Narrative [facility] - 11/15/2024 7:19 PM EDT Enzymatic Assay: Performed on Nayeli Linnette. Lona Ortiz MD LAB BLOOD ORDERABLES Final Result [facility] [address] [place] [address] * APTT (PTT) (11/15/2024 6:51 PM EDT) aPTT 28 25 - 35 sec 11/15/2024 7:14 PM EDT [facility] Blood Venous blood specimen / Unknown Venipuncture / Unknown 11/15/2024 6:51 PM EDT 11/15/2024 6:56 PM EDT Lona Ortiz MD LAB BLOOD ORDERABLES Final Result Performing Organization Address [facility]/ZIP Co de Phone Number [facility] [address] [place] [address] * (ABNORMAL) PT-INR (11/15/2024 6:51 PM EDT) Prothrombin Time 19.5(H) 12.0 - 14.3 sec 11/15/2024 7:14 PM EDT [facility] INR 1.7(H) 0.9 - 1.1 11/15/2024 7:14 PM EDT [facility] Blood Venous blood specimen / Unknown Venipuncture / Unknown 11/15/2024 6:51 PM EDT 11/15/2024 6:56 PM EDT Narrative [facility] - 11/15/2024 7:14 PM EDT OPTIMAL INR RANGES FOR PATIENT ON ORAL ANTICOAGULANT THERAPY Prevention of venous thromboembolism INR 2.0 to 3.0 In patients with heart disease: Atrial fibrillation INR 2.0 to 3.0 Valvular heart disease INR 2.0 to 3.0 Tissue heart valves INR 2.0 to 3.0 Mechanical prosthetic valves INR 2.5 to 3.5 Prevention of recurrent ME INR 2.5 to 3.5 Lona Ortiz MD LAB BLOOD ORDERABLES Final Result [facility] [address] [place] [address] * (ABNORMAL) CBC w/o diff (11/15/2024 6:51 PM EDT) WBC Count 2.96(L) 3.70 - 10.30 10*3/uL LAB HEMATOLOGY METHOD 11/15/2024 8:05 PM EDT [facility] RBC Count 2.35(L) 3.90 - 5.20 10*6/uL LAB HEMATOLOGY METHOD 11/15/2024 8:05 PM EDT [facility] HGB 7.2(L) 11.2 - 15.7 g/dL LAB HEMATOLOGY METHOD 11/15/2024 8:05 PM EDT [facility] HCT 24.0(L) 34.0 - 45.0 % LAB HEMATOLOGY METHOD 11/15/2024 8:05 PM EDT [facility] Platelet Count 158 155 - 369 10*3/uL LAB HEMATOLOGY METHOD 11/15/2024 8:05 PM EDT [facility] MCV 102(H) 79 - 98 fL LAB HEMATOLOGY METHOD 11/15/2024 8:05 PM EDT [facility] MCH 30.6 26.0 - 32.0 pg LAB HEMATOLOGY METHOD 11/15/2024 8:05 PM EDT [facility] MCHC 30.0(L) 30.7 - 35.5 g/dL LAB HEMATOLOGY METHOD 11/15/2024 8:05 PM EDT [facility] RDW 17.7(H) 11.5 - 14.5 % LAB HEMATOLOGY METHOD 11/15/2024 8:05 PM EDT [facility] MPV 10.2 8.8 - 12.5 fL LAB HEMATOLOGY METHOD 11/15/2024 8:05 PM EDT [facility] nRBC 0.0 <=0.0 per 100 WBCs LAB HEMATOLOGY METHOD 11/15/2024 8:05 PM EDT [facility] Blood Venous blood specimen / Unknown Venipuncture / Unknown 11/15/2024 6:51 PM EDT 11/15/2024 6:56 PM EDT us Lona Ortiz MD LAB BLOOD ORDERABLES Final Result [facility] [address] [place] [address] * (ABNORMAL) CMP (11/15/2024 6:51 PM EDT) [facility] Glucose, Plasma 107(H) 74 - 99 mg/dL 11/15/2024 7:47 PM EDT [facility] BUN, Plasma 22 8 - 23 mg/dL 11/15/2024 7:47 PM EDT [facility] Creatinine, Plasma 0.81 0.60 - 1.10 mg/dL 11/15/2024 7:47 PM EDT [facility] BUN/Creatinine Ratio 27 11/15/2024 7:47 PM EDT [facility] Sodium, Plasma 141 136 - 145 mmol/L 11/15/2024 7:47 PM EDT [facility] Potassium, Plasma 3.7 3.6 - 4.9 mmol/L 11/15/2024 7:47 PM EDT [facility] Chloride, Plasma 102 97 - 107 mmol/L 11/15/2024 7:47 PM EDT [facility] CO2, Plasma 26 22 - 29 mmol/L 11/15/2024 7:47 PM EDT [facility] Anion Gap 13 6 - 16 mmol/L 11/15/2024 7:47 PM EDT [facility] Total Calcium, Plasma 8.9 8.9 - 10.2 mg/dL 11/15/2024 7:47 PM EDT [facility] Total Protein 6.4 6.3 - 7.9 g/dL 11/15/2024 7:47 PM EDT [facility] Albumin, Plasma 3.7 3.5 - 5.2 g/dL 11/15/2024 7:47 PM EDT [facility] AST, Plasma 12 10 - 35 U/L 11/15/2024 7:47 PM EDT [facility] ALT, Plasma 22 10 - 35 U/L 11/15/2024 7:47 PM EDT [facility] Alkaline Phosphatase, Plasma 108 46 - 142 U/L 11/15/2024 7:47 PM EDT [facility] Total Bilirubin, Plasma 0.7 0.2 - 1.1 mg/dL 11/15/2024 7:47 PM EDT [facility] eGFRcr 81.7 mL/min/1.7 3m*2 11/15/2024 7:47 PM EDT [facility] Comment:Reported eGFRcr in m L/min/1.73m2 is based the CKD-EPI 2020 equation that does not use a race coefficient. Blood Venous blood specimen / Unknown Venipuncture / Unknown 11/15/2024 6:51 PM EDT 11/15/2024 6:56 PM EDT Lona Ortiz MD LAB BLOOD ORDERABLES Final Result Performing Organization Address City/[facility]/ZIP Co de Phone Number [facility] [address] [place] [address] * Gold Top (11/15/2024 6:41 PM EDT) [facility] Extra Hold for add-ons 11/15/2024 9:01 PM EDT [facility] Comment:Auto resulted. Blood Venous blood specimen / Unknown 11/15/2024 6:41 PM EDT 11/15/2024 6:56 PM EDT Lona Ortiz MD LAB BLOOD ORDERABLES Final Result Performing Organization Address City/[facility]/[place] [address] * (ABNORMAL) POCT glucose meter (11/15/2024 4:49 PM EDT) [facility] POCT Glucose 135(H) 74 - 99 mg/dL [...] for testing. Comment 11/15/2024 4:50 PM EDT [facility] Makeup Artist ID Lynda Murphy 4:50 PM EDT [facility] Device ID [id number] 11/15/2024 4:50 PM EDT [facility] Specimen Type POC Capillary 11/15/2024 4:50 PM EDT [facility] Blood Capillary blood specimen / Unknown 11/15/2024 4:49 PM EDT 11/15/2024 4:50 PM EDT us Generic Provider Poct LAB POINT OF CARE TEST DOCKED DEVICE UNSOLICITED RESULTS Final Result [facility] [address] [place] [id number] documented in this encounter Visit Diagnoses Diagnosis Fall- Primary Unspecified fall SAH (subarachnoid hemorrhage) ([facility]) Subarachnoid hemorrhage SDH (subdural hematoma) ([facility]) Subdural hemorrhage Nondisplaced fracture of distal phalanx of left thumb, initial encounter for closed fracture Acute cystitis without hematuria SAH (subarachnoid hemorrhage) ([facility]) Subarachnoid hemorrhage Subdural hemorrhage ([facility]) Subdural hemorrhage Morbid obesity with BMI of 40.0-44.9, adult ([facility]) A-fib ([facility]) Atrial fibrillation Concussion Unspecified concussion Anemia Unspecified anemia UTI (urinary tract infection) Urinary tract infection, site not specified Hyperglycemia due to diabetes mellitus ([facility]) Brain mass Unspecified condition of brain documented in this encounter Admitting Diagnoses Diagnosis SAH (subarachnoid hemorrhage) ([facility]) Subarachnoid hemorrhage documented in this encounter Administered [...] 194 (New Bag - Provider: Cynthia Juan, PharmD)2009 (Stopped - Provider: Clare Canada) HYDROmorphone (Dilaudid) injection 0.5 mg (COMPLETED) 0.5 mg, Intravenous, Once, 1 dose, On Thu11/15/24 at 2030, STAT 2101 (Given - Provider: Clare Canada) iohexol (OMNIPaque) 350 MG/ML injection 100 mL (COMPLETED) 100 mL, Intravenous, Once in imaging, 1 dose, Starting on Thu11/15/24 at 2122, Until Thu11/15/24 at 2121, Routine, Imaging Protocol Orders 2121 (Given - Provider: Jane Burnett) levETIRAcetam (Keppra) injection 2,000 mg (COMPLETED) 2,000 mg, Intravenous, Once, 1 dose, On Thu11/15/24 at 1920, STAT 1934 (Given - Provider: Clare Canada) nitrofurantoin (macrocrystal-monohydrate) [...] pain 0733 (Given - Provid er: Marcia Peleltier)1141 (Given - Provider: Marcia Pelletier) sodium chloride 0.9 % flush 10 mL(Linked Group 1) 10 mL, Intravenous, As needed, Starting on Thu11/16/24 at 0118, Until Thu11/16/24 at 1739, Routine, line care Linked Groups Order Group 1: Insert peripheral IV (COMPLETED) Once, On Thu11/16/24 at 0119, For 1 occurrence And Saline lock IV (COMPLETED) Once, On Thu11/16/24 at 011, For 1 occurrence And sodium chloride 0.9 [...] 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, [employer] Panic 10/26/2024 10/31/2024 Assessment Noted Time PHQ-9 Depression Total Score: 0 09/01/19 3:26 PM EDT A fall risk assessment has been complete d for the patient 11/10/2024 2:43 PM EDT A Body Mass Index follow-up plan has been documented for the patient 11/08/2024 5:14 PM EDT documented as of this encounter Care Teams [employer] Relationship Specialty Start Date End Date Laurie Gutierrez MD [address] [place] [address] PCP - General 12/09/23 Joshua Martínez MD [address] [place] [address] [id number] [place] [address] Consulting Physician Radiation Oncology 09/19/24 documented as of this encounter
--- OUTSIDE RECORDS SUMMARY | 2024-11-15 16:42 | XMS_ITS | Encounter Summary ---
Author Organization Healthcare Address [address] [place] [address] Care Team Providers Care Medical Technical Writer Name Role Phone Laurie Gutierrez MD Primary Care Provider [phone] Joshua Martínez MD Unavailable Reason for Visit * Reason Comments Trauma Alert Red * Auth/Cert (Routine) Specialty Diagnoses / Procedures Referred By Mackenzie carreon Referred To Contact Diagnoses SAH (subarachnoid hemorrhage) ([facility]) recent regine surgery at -new fall -traumatic brain bleed under surgical sight Giovany Vance MD [address] [address] Phone: tel: fax: [facility] Emergency Department [address] [place] [address] Phone: tel: Referral ID Status Reason Start Date Expiration Date Visits Re quested Visits Authorized [id number] 1 1 Encounter Details Date Type Department Care Team (Latest Contact Info) Description 11/15/2024 4:42 PM EDT - 11/16/2024 3:39 PM EDT Hospital Encounter [facility] Emergency Department [address] [place] [address] Lona Ortiz MD [address] [place] [address] Giovany Vance MD [id number] [place] [address] Jojo Rapp MD [address] [place] [address] SAH (subarachnoid hemorrhage) (CMS/HCC) (Primary [...] drink first t laurie in the morning (EYE-STERNMAN) to steady your nerves or to get rid of a hangover? 0 10/27/2024 CAGE Questionnaire Score 0 025 Utilities Answer Date Recorded In the past 12 months has th e [employer], Exav[employer], oil, or water [employer] threatened to shut off services in your [...] tablets by mouth every 6 hours. Under [place] law, monthly prescriptions (30 days) can be [...] a day 22 g 11/08/2024 nystatin (Mycostatin) 677412 UNIT/GM powder Apply on bottom 2 times [...] PCP name and Address: Laurie Gutierrez MD [address] [place] [address] / [facility] [address] Referring provider name and address: Regina Katz, [address] [address] Chief Concern, Brief History of Present Illness, and Hospital Course HPI: Teresa Rivera is a 63 y.o. F with PMH of small cell lung cancer, s/p L frontal craniotomy formetastatic brain lesion resection on 09/05/24, on Xarelto for Afib (last dose 10/11), who presented to [facility] on 11/15 from an OSH [...] up with Trauma clinic as needed. [address] [place] [address] First Floor, Wing [address] [address], #[phone]. Questions or Concerns and Appointments If there are questions or concerns after discharge from the hospital, please call [phone] and ask for Blue [facility] Nurse. Working hours are Thursday - Thursday 8:00 AM to 4:00 PM. After hours, weekends and holidays please call [phone] and ask for the resident customer service consultant for [facility]. For appointments please call [phone]. Medication requests should be made between the hours of 9:00 AM to 3:00 PM Thursday thru Thursday. Please note that based upon recent changes to [place] law related to prescribing opioid pain medications, our providers will not provide refills on controlled medications after your hospital discharge following a major surgery or trauma. [place] 201 KAR9:260. Surgeries and Procedures Medication List .. acetaminophen 325 MG tablet Commonly known as: Tylenol Take 2 tablets by mouth every 6 hours. Under [place] law, monthly prescriptions (30 days) can be [...] Breztri Aerosphere 160-9-4.8 MCG/ACT aerosol Generic drug: Qbgwatg-Otskvfuhfmi-Cvxaeweujc Inhale 2 puffs 2 (two) times a [...] meals per correction scale as follows: blood [id number] use 2 units, 200-249 use 4 units, 250-299 use 6 units, 300-349 use 8 units, 350-399 use 10 units, >399 12 units and call provider. nystatin 700149 UNIT/GM powder Commonly known as: Mycostatin Apply [...] These medications were sent to [facility] - [place], [place] - [address], [facility] [address] acetaminophen 325 MG tablet nitrofurantoin (macrocrystal-monohydrate) 100 [...] Time Provider Department Center 11/29/2024 10:30 AM [facility] JO[facility] MARTIN [facility] 11/29/2024 11:00 AM Satnam Colvin MD [facility] 11/29/2024 12:30 PM [facility] 1 INFUSION TREATMENT [id number] [facility] 11/30/2024 1:30 PM [facility] 1 INFUSION TREATMENT [id number] [facility] 12/01/2024 2:00 PM [facility] 1 INFUSION TREATMENT [id number] [facility] 12/06/2024 11:40 AM Haven Blum APRN [facility] 01/19/2025 9:30 AM GS MR 2 [facility] 01/19/2025 10:45 AM Abhilash Bangura MD [facility] 03/08/2025 1:00 PM Teresita Oconnell MD [facility] I TRAUMA SURGERY TERTIARY SURVEY I performed [...] carcinoma of lung 09/09/2024 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[facility]) 09/09/2024 Subdural hemorrhage ([facility]) 10/12/2024 Abnormal uterine bleeding 01/01/2024 Acute cystitis without hematuria 12/07/2023 Acute frontal sinusitis, unspecified 03/28/2024 Acute upper respiratory infection, unspecified 05/16/2024 Allergic rhinitis 07/08/2024 Anemia 09/06/2024 Anesthesia of skin 09/03/2024 Antineoplastic chemotherapy induced pancytopenia ([facility]) 10/27/2023 Anxiety 10/25/2024 Arthralgia of multiple joints 08/25/2013 Arthralgia 08/25/2013 Atelectasis 09/01/2024 Atherosclerosis of aorta ([facility]) 09/01/2024 Atrophic vaginitis 03/24/2022 Bacteremia 10/28/2023 Cardiomegaly 06/24/2024 Chest pain, unspecified 08/12/2024 Acute exacerbation of chronic obstructive airways disease ([facility]) 10/25/2024 Chronic respiratory failure with hypoxia 10/28/2023 Cigarette smoker 03/24/2022 Compression of vein 09/01/2024 Congenital multiple renal cysts 07/08/2024 Congenital single renal cyst 05/31/2015 Dehydration 11/14/2023 Diabetes mellitus ([facility]) 08/25/2013 Type 2 diabetes mellitus [...] large intestine 10/26/2023 Hypomagnesemia 07/08/2024 Immunocompromised state ([facility]) 10/25/2024 Incontinence 10/25/2024 Irritable bowel syndrome 10/25/2024 Localized swelling, mass and lump, head 09/01/2024 Malignant neoplasm of upper lobe, right bronchus or lung ([facility]) 08/28/2023 Morbid (severe) obesity due to excess calories ([facility]) 09/09/2024 Cyst of kidney, acquired 09/01/2024 Multiple renal cysts 10/26/2023 Muscle weakness (generalized) 11/14/2023 Chemotherapy-induced nausea and vomiting 08/28/2023 Nausea and vomiting 04/03/2022 Hereditary and idiopathic neuropathy, unspecified 05/19/2024 Neuropathy 10/25/2024 Nonpyogenic thrombosis of intracranial venous system 08/31/2024 Cerebral edema ([facility]) 09/09/2024 Osteoarthritis 08/25/2013 Other abnormalities of gait and mobility 09/06/2024 Other chronic pain 09/07/2024 Other disorders of lung 09/01/2024 Other fatigue 07/08/2024 Weakness 09/06/2024 Other malaise 09/17/2024 Other sequelae of other nontraumatic intracranial hemorrhage 09/17/2024 Other symptoms and signs involving the musculoskeletal system 09/03/2024 Pain in right foot 02/05/2024 Pain in right toe(s) 02/25/2024 Palpitations 11/17/2023 Paroxysmal atrial fibrillation ([facility]) 09/06/2024 A-fib ([facility]) 08/31/2024 Plantar fascial fibromatosis 04/11/2024 [...] 2 diabetes mellitus with diabetic neuropathy, unspecified ([facility]) 11/20/2023 Hyperglycemia due to diabetes mellitus ([facility]) 05/31/2015 Unspecified abnormalities of gait and mobility 09/17/2024 Unspecified acute conjunctivitis, right eye 03/28/2024 Unspecified right bundle-branch block 08/31/2024 Urethral caruncle 03/24/2022 UTI (urinary tract infection) 04/20/2024 Vertebrogenic low back pain 10/25/2024 Vitamin D deficiency 03/21/2024 Pneumonia of right upper lobe due to infectious organism 10/25/2024 Resolved Ambulatory Problems Diagnosis Date Noted Atrial flutter with rapid ventricular response ([facility]) 11/19/2023 Neutropenic fever ([facility]) 10/12/2024 Sepsis without acute organ dysfunction ([facility]) 10/12/2024 Subarachnoid hemorrhage ([facility]) 10/12/2024 Abdominal bloating 04/03/2022 Past Medical History: Diagnosis Date Brain tumor ([facility]) Personal history of other diseases [...] tablets by mouth every 6 hours. Under [place] law, monthly prescriptions (30 days) can be [...] or chew. 10/18/24 Yes Radha Slaughter MD Pepcdzp-Wtznkvvynaj-Bhmqvjgvis (Breztri Aerosphere) 160-9-4.8 MCG/ACT aerosol Inhale 2 [...] g into the vagina daily. Yes Jef Henrdickson MD ferrous sulfate 325 (65 Fe) MG [...] 10/31/24 Yes Sasha Nuñez DO nystatin (Mycostatin) 163574 UNIT/GM powder Apply on bottom 2 times [...] SURGERY TUBAL LIGATION N/A Tubal Ligation from Flo [employer] TYMPANOSTOMY TUBE PLACEMENT N/A Ear Surgery Eustachian [...] from the original note were not included. [id number] Fall Prevention Falls often take place due [...] medical history, your current prescriptions and your lrsq-dlc-vwpdaws medicines. As a general rule, the National [place] [employer] Aging (NCA) recommends taking one-third of [...] often. Last Reviewed Date: 2024 00:00:00 ?? [id number] [employer]. All rights reserved. This information is not intended as a substitute for professional medical care. Always follow your healthcare professional's instructions. * [facility] Marcia Pelletier - 11/16/2024 3:01 PM EDT Images from the original note were not included. [id number] After a Fall You have had a [...] color) Last Reviewed Date: 2022 00:00:00 ?? [id number] [employer]. All rights reserved. This information is not [...] Please call with any questions or concerns. [phone] Zachary Brown MD Resident Physician, PGY-2 Department of neurosurgery Pager: [phone] Cosigned by Abhilash Bangura MD at 11/17/2024 [...] Afib (last dose 10/11), who presented to [facility] on 11/15 from an OSH [...] up with Trauma clinic as needed. [address] [place] [address] First Floor, Wing [address] [place] [address], #[phone]. Questions or Concerns and Appointments If there are questions or concerns after discharge from the hospital, please call [phone] and ask for Blue Surgery Nurse. Working hours are Thursday - Thursday 8:00 AM to 4:00 PM. After hours, weekends and holidays please call [phone] and ask for the resident customer service consultant for [facility]. For appointments please call [phone]. Medication requests should be made between the hours of 9:00 AM to 3:00 PM Thursday thru Thursday. Please note that based upon recent changes to [place] law related to prescribing opioid pain medications, [...] Date: 11/15 Arrival Time: 442 Referring Hospital: [facility] () Injury Date: 11/15 Transport Mode: Mode [...] vertex hemorrhage near prior tumor bed.No LOC. 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 Transferred from [facility] for concern of traumatic bleed beneath craniotomy [...] kg (263 lb 7.2 oz), SpO2 92%. Norton Tk Coma Scale Best Eye Response: Spontaneous Best Verbal Response: Oriented Best Motor Response: Follows commands Norton Coma Scale Score: 15 Intubated No Recent [...] tablet 650 mg 650 mg Oral q6h [facility] Torrie Mustafa PA dextrose 5 % and [...] Donot crush or chew. 20 capsule 0 Tyqyqrj-Yvkjnhrlmtd-Ccnpkwonqg (Breztri Aerosphere) 160-9-4.8 MCG/ACT aerosol Inhale 2 [...] call provider. 15 mL 3 nystatin (Mycostatin) 220653 UNIT/GM powder Apply on bottom 2 times [...] [place] OSH s/[place] [facility] [place] she had a follow-up appt. [...] SURGERY TUBAL LIGATION N/A Tubal Ligation from Flo [employer] TYMPANOSTOMY TUBE PLACEMENT N/A Ear Surgery Eustachian Tube from [employer] Allergies: Cephalexin, Lisinopril, and Meloxicam Height/Weight: Ht [...] IX) as a bolus dose at 1944 (lot#[id number], factor IX 493 units/vial x10 vials). Monitoring: [...] vertex hemorrhage near prior tumor bed.No LOC. 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 Transferred from [facility] for concern of traumatic bleed beneath craniotomy [...] SURGERY TUBAL LIGATION N/A Tubal Ligation from [employer] TYMPANOSTOMY TUBE PLACEMENT N/A Ear Surgery Eustachian Tube from [employer] [3] levETIRAcetam, 2,000 mg, Intravenous, Once [4] [...] baseline. Comments: Awake Psychiatric: Behavior: Behavior normal. Norton Coma Scale Score: 15 ED Course & [...] Bore IV's Acknowledged REGINE IBRAHIM 11/15/24 1749 Blasting Gang Miner Until discontinued Acknowledged REGINE IBRAHIM 11/15/24 1749 Continuous Pulse Oximetry Until discontinued Acknowledged REGINE IBRAHIM 11/15/24 1749 Oxygen Therapy - Device: Nasal Cannula Continuous Order ID Start Status Ordering Provider [id number] 11/15/24 1750 Completed REGINE IBRAHIM [id number] 11/15/241999 Completed REGINE IBRAHIM [id number] 11/16/24 0800 Acknowledged REGINE IBRAHIM [id number] 11/16/241999 Acknowledged REGINE IBRAHIM 11/17/24 0800 Scheduled [...] after patient was evaluated in the [facility] she was quickly downgraded to a trauma [...] SURGERY TUBAL LIGATION N/A Tubal Ligation from [employer] TYMPANOSTOMY TUBE PLACEMENT N/A Ear Surgery Eustachian Tube from [employer] [3] Family History Problem Relation Name Age [...] takes Eliquis for afib. EMV15,-LOC. 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 documented in this encounter Plan of Treatment Upcoming Encounters Date Type Department Care Team (Late st Contact Info) Description 11/29/2024 10:30 AM EDT Clinical Support [facility] [address] [facility], 2nd [place] [address] 11/29/2024 11:00 AM EDT Office Visit [facility] [address] [facility], [address] [place] [address] Satnam Colvin MD [address] [facility] [address] [place] [address] 11/29/2024 12:30 PM EDT Appointment [facility] [address] [place] [address] 11/30/2024 1:30 PM EDT Appointment [facility] 1 [address] [place] [address] 12/01/2024 2:00 PM EDT Appointment [facility] 1 [address] [place] [address] 12/06/2024 11:40 AM EDT Appointment [facility] Radiation [address] [facility]. [id number] [place] [address] Haven Blum, RED HAT ENGINEER [address] [facility] [id number] [place] [address] 01/19/2025 9:30 AM EDT Appointment [facility] S Radiology [address]st [place] [address] 01/19/2025 10:45 AM EDT Office Visit [facility] [address], [address]st [place] [address] Abhilash Bangura MD [address] [place] [address] 03/08/2025 1:00 PM EDT Office Visit [facility] Grace Wenceslao [address] [facility] [place] [address] Teresita Oconnell MD [address] [place] [address] documented as of this encounter [...] Resistant Organisms Isolated 11/18/2024 9:10 AM EDT [facility] Swab (Nares and Carole Rectal) Non-blood Collection / Unknown 11/16/2024 1:41 AM EDT 11/16/2024 7:14 AM EDT Narrative [facility] - 11/18/2024 9:10 AM EDT This test was developed and its performance characteristics determined by the [facility]. Although the media is FDA-approved, it is not FDA-approved for all specimen types submitted. The FDA has determined that such clearance or approval is not necessary. This test is used for surveillance purposes. It should not be regarded as investigational or for research. The [facility] is certified under the Clinical Laboratory Improvement Amendments of 1988 (CLIA-88) as qualified to perform high complexity clinical laboratory testing. Giovany Vance MD LAB MICROBIOLOGY - GENERAL O RDERABLES Final Result Performing Organization Address [facility] Co de Phone Number [facility] [address] [place] [address] * Urinalysis Microscopic Examination (11/16/2024 1:14 AM EDT) Urine Urine specimen obtained by clean catch procedure / Unknown Non-blood Collection / Unknown 11/16/2024 1:14 AM EDT 11/16/2024 1:21 AM EDT Lona Ortiz MD LAB URINE ORDERABLES Final Result Performing Organization Address City/[facility] Co de Phone Number [facility] [address] [place] [address] * (ABNORMAL) Urinalysis with reflex microscopic (Culture NOT Included) (11/16/2024 1:14 AM EDT) Color, Urine Avery LAB URINALYSIS - AUTOMATED METHOD 11/16/2024 1:54 AM EDT [facility] Clarity, Urine Clear LAB URINALYSIS - AUTOMATED METHOD 11/16/2024 1:54 AM EDT [facility] Spec [place], Urine >1.030(H) 1.005 - 1.030 LAB URINALYSIS - AUTOMATED METHOD 11/16/2024 1:54 AM EDT [facility] pH, Urine 6.0 5.0 - 8.0 LAB URINALYSIS - AUTOMATED METHOD 11/16/2024 1:54 AM EDT [facility] Protein, Urine Trace(A) Negative mg/dL LAB URINALYSIS - AUTOMATED METHOD 11/16/2024 1:54 AM EDT [facility] Glucose, Urine >=1000(A) Negative mg/dL LAB URINALYSIS - AUTOMATED METHOD 11/16/2024 1:54 AM EDT [facility] Ketones, Urine Negative Negative mg/dL LAB URINALYSIS - AUTOMATED METHOD 11/16/2024 1:54 AM EDT [facility] Blood, Urine Trace(A) Negative LAB URINALYSIS - AUTOMATED METHOD 11/16/2024 1:54 AM EDT [facility] Bilirubin, Urine Negative Negative LAB URINALYSIS - AUTOMATED METHOD 11/16/2024 1:54 AM EDT [facility] Urobilinogen, Urine 0.2 0.2 to 1.0 mg/dL LAB URINALYSIS - AUTOMATED METHOD 11/16/2024 1:54 AM EDT [facility] Leukocytes, Urine Moderate(A) Negative LAB URINALYSIS - AUTOMATED METHOD 11/16/2024 1:54 AM EDT [facility] Nitrite, Urine Positive(A) Negative LAB URINALYSIS - AUTOMATED METHOD 11/16/2024 1:54 AM EDT [facility] RBC, Urine 1 0 to 3 /HPF 11/16/2024 1:54 AM EDT [facility] Comment:This result was prev iously suppressed from the chart. WBC, Urine 21 - 50(A) 0 to 5 /HPF 11/16/2024 1:54 AM EDT [facility] Comment:This result was prev iously suppressed from the chart. Squamous Epithelial Cells 0 - 2 0 to 5 /HPF 11/16/2024 1:54 AM EDT [facility] Comment:This result was prev iously suppressed from the chart. Hyaline Casts 0 - 2 0 to 5 /LPF 11/16/2024 1:54 AM EDT [facility] Comment:This result was prev iously suppressed from the chart. Bacteria, Urine Present Negative 11/16/2024 1:54 AM EDT [facility] Comment:This result was prev iously suppressed from the chart. Urine Urine specimen obtained by clean catch procedure / Unknown Non-blood Collection / Unknown 11/16/2024 1:14 AM EDT 11/16/2024 1:21 AM EDT Narrative [facility] - 11/16/2024 1:54 AM EDT Urinalysis dipstick results may be inaccurate due to specimen color or an interfering substance in the specimen. Performed by manual method us Lona Ortiz MD LAB URINE ORDERABLES Final Result [facility] [address] [place] [address] * Drug Abuse Screen, Urine (11/16/2024 1:14 AM EDT) Amphetamine Screen Urine Negative Cutoff: 500 ng/mL 11/16/2024 1:42 AM EDT [facility] Benzodiazepines Screen Urine Negative Cutoff: 200 ng/mL 11/16/2024 1:42 AM EDT [facility] Cannabinoid Screen Urine Negative Cutoff: 50 ng/mL 11/16/2024 1:42 AM EDT [facility] Cocaine Screen Urine Negative Cutoff: 300 ng/mL 11/16/2024 1:42 AM EDT [facility] Barbiturate Screen Urine Negative Cutoff: 200 ng/mL 11/16/2024 1:42 AM EDT [facility] Opiate Screen Urine Negative Cutoff: 300 ng/mL 11/16/2024 1:42 AM EDT [facility] Methadone Screen Urine Negative Cutoff: 300 ng/mL 11/16/2024 1:42 AM EDT [facility] Buprenorphine Screen Urine Negative Cutoff: 10 ng/mL 11/16/2024 1:42 AM EDT [facility] Fentanyl Screen Urine Negative Cutoff: 1 ng/mL 11/16/2024 1:42 AM EDT [facility] Oxycodone Screen Urine Negative Cutoff: 100 ng/mL 11/16/2024 1:42 AM EDT [facility] Urine Urine specimen obtained by clean catch procedure / Unknown Non-blood Collection / Unknown 11/16/2024 1:14 AM EDT 11/16/2024 1:21 AM EDT us Lona Ortiz MD LAB URINE ORDERABLES Final Result [facility] [address] [place] [address] * CT Venogram Head (11/15/2024 9:21 PM [...] Total DLP (Dose-Length Product): 1926.17 mGy.cm (accession [id number]), 1926.17 mGy.cm (accession [id number]). Please note: The reported value represents the [...] Total DLP (Dose-Length Product): 1926.17 mGy.cm (accession [id number]),1926.17 mGy.cm (accession [id number]). Please note: The reported valuerepresents the total [...] Total DLP (Dose-Length Product): 1926.17 mGy.cm (accession [id number]), 1926.17 mGy.cm (accession [id number]). Please note: The reported value represents the [...] Total DLP (Dose-Length Product): 1926.17 mGy.cm (accession [id number]),1926.17 mGy.cm (accession [id number]). Please note: The reported valuerepresents the total [...] LAB HEMATOLOGY METHOD 11/15/2024 8:21 PM EDT [facility] Bicarbonate, Calculated, Venous 29(H) 22 - 26 mmol/L LAB HEMATOLOGY METHOD 11/15/2024 8:21 PM EDT [facility] Base Excess, Venous 3.2(H) -2.0 - 3.0 mmol/L LAB HEMATOLOGY METHOD 11/15/2024 8:21 PM EDT [facility] Lactate, Venous, Whole Blood 1.8 0.5 - 2.2 mmol/L LAB HEMATOLOGY METHOD 11/15/2024 8:21 PM EDT [facility] Blood Venous blood specimen / Unknown Venipuncture / Unknown 11/15/2024 8:06 PM EDT 11/15/2024 8:20 PM EDT us Lona Ortiz MD LAB BLOOD ORDERABLES Final Result [facility] [address] [place] [address] * Type and Screen (11/15/2024 6:51 PM [...] ORDERAB LES Final Result Performing Organization Address City/[facility]/ZIP Co de Phone Number BLOOD BANK [address] [place] [address], * Test Qualitative Plasma (11/15/2024 6:51 PM EDT) Test Negative Negative 11/15/2024 7:47 PM EDT [facility] Blood Venous blood specimen / Unknown Venipuncture / Unknown 11/15/2024 6:51 PM EDT 11/15/2024 6:56 PM EDT Narrative [facility] - 11/15/2024 7:47 PM EDT Reference Range: Males and non- females: Negative. Lona Ortiz MD LAB BLOOD ORDERABLES Final Result Performing Organization Address City/[facility]/ZIP Co de Phone Number [facility] [address] [place] [address] * Ethyl Alcohol Plasma (11/15/2024 6:51 PM EDT) Ethanol Plasma <10 <10 mg/dL 11/15/2024 7:19 PM EDT [facility] Blood Venous blood specimen / Unknown Venipuncture / Unknown 11/15/2024 6:51 PM EDT 11/15/2024 6:56 PM EDT Narrative [facility] - 11/15/2024 7:19 PM EDT Enzymatic Assay: Performed on Nayeli Linnette. Lona Ortiz MD LAB BLOOD ORDERABLES Final Result [facility] [address] [place] [address] * APTT (PTT) (11/15/2024 6:51 PM EDT) aPTT 28 25 - 35 sec 11/15/2024 7:14 PM EDT [facility] Blood Venous blood specimen / Unknown Venipuncture / Unknown 11/15/2024 6:51 PM EDT 11/15/2024 6:56 PM EDT Lona Ortiz MD LAB BLOOD ORDERABLES Final Result Performing Organization Address [facility]/ZIP Co de Phone Number [facility] [address] [place] [address] * (ABNORMAL) PT-INR (11/15/2024 6:51 PM EDT) Prothrombin Time 19.5(H) 12.0 - 14.3 sec 11/15/2024 7:14 PM EDT [facility] INR 1.7(H) 0.9 - 1.1 11/15/2024 7:14 PM EDT [facility] Blood Venous blood specimen / Unknown Venipuncture / Unknown 11/15/2024 6:51 PM EDT 11/15/2024 6:56 PM EDT Narrative [facility] - 11/15/2024 7:14 PM EDT OPTIMAL INR RANGES FOR PATIENT ON ORAL ANTICOAGULANT THERAPY Prevention of venous thromboembolism INR 2.0 to 3.0 In patients with heart disease: Atrial fibrillation INR 2.0 to 3.0 Valvular heart disease INR 2.0 to 3.0 Tissue heart valves INR 2.0 to 3.0 Mechanical prosthetic valves INR 2.5 to 3.5 Prevention of recurrent OK INR 2.5 to 3.5 Lona Ortiz MD LAB BLOOD ORDERABLES Final Result [facility] [address] [place] [address] * (ABNORMAL) CBC w/o diff (11/15/2024 6:51 PM EDT) WBC Count 2.96(L) 3.70 - 10.30 10*3/uL LAB HEMATOLOGY METHOD 11/15/2024 8:05 PM EDT [facility] RBC Count 2.35(L) 3.90 - 5.20 10*6/uL LAB HEMATOLOGY METHOD 11/15/2024 8:05 PM EDT [facility] HGB 7.2(L) 11.2 - 15.7 g/dL LAB HEMATOLOGY METHOD 11/15/2024 8:05 PM EDT [facility] HCT 24.0(L) 34.0 - 45.0 % LAB HEMATOLOGY METHOD 11/15/2024 8:05 PM EDT [facility] Platelet Count 158 155 - 369 10*3/uL LAB HEMATOLOGY METHOD 11/15/2024 8:05 PM EDT [facility] MCV 102(H) 79 - 98 fL LAB HEMATOLOGY METHOD 11/15/2024 8:05 PM EDT [facility] MCH 30.6 26.0 - 32.0 pg LAB HEMATOLOGY METHOD 11/15/2024 8:05 PM EDT [facility] MCHC 30.0(L) 30.7 - 35.5 g/dL LAB HEMATOLOGY METHOD 11/15/2024 8:05 PM EDT [facility] RDW 17.7(H) 11.5 - 14.5 % LAB HEMATOLOGY METHOD 11/15/2024 8:05 PM EDT [facility] MPV 10.2 8.8 - 12.5 fL LAB HEMATOLOGY METHOD 11/15/2024 8:05 PM EDT [facility] nRBC 0.0 <=0.0 per 100 WBCs LAB HEMATOLOGY METHOD 11/15/2024 8:05 PM EDT [facility] Blood Venous blood specimen / Unknown Venipuncture / Unknown 11/15/2024 6:51 PM EDT 11/15/2024 6:56 PM EDT us Lona Ortiz MD LAB BLOOD ORDERABLES Final Result [facility] [address] [place] [address] * (ABNORMAL) CMP (11/15/2024 6:51 PM EDT) [facility] Glucose, Plasma 107(H) 74 - 99 mg/dL 11/15/2024 7:47 PM EDT [facility] BUN, Plasma 22 8 - 23 mg/dL 11/15/2024 7:47 PM EDT [facility] Creatinine, Plasma 0.81 0.60 - 1.10 mg/dL 11/15/2024 7:47 PM EDT [facility] BUN/Creatinine Ratio 27 11/15/2024 7:47 PM EDT [facility] Sodium, Plasma 141 136 - 145 mmol/L 11/15/2024 7:47 PM EDT [facility] Potassium, Plasma 3.7 3.6 - 4.9 mmol/L 11/15/2024 7:47 PM EDT [facility] Chloride, Plasma 102 97 - 107 mmol/L 11/15/2024 7:47 PM EDT [facility] CO2, Plasma 26 22 - 29 mmol/L 11/15/2024 7:47 PM EDT [facility] Anion Gap 13 6 - 16 mmol/L 11/15/2024 7:47 PM EDT [facility] Total Calcium, Plasma 8.9 8.9 - 10.2 mg/dL 11/15/2024 7:47 PM EDT [facility] Total Protein 6.4 6.3 - 7.9 g/dL 11/15/2024 7:47 PM EDT [facility] Albumin, Plasma 3.7 3.5 - 5.2 g/dL 11/15/2024 7:47 PM EDT [facility] AST, Plasma 12 10 - 35 U/L 11/15/2024 7:47 PM EDT [facility] ALT, Plasma 22 10 - 35 U/L 11/15/2024 7:47 PM EDT [facility] Alkaline Phosphatase, Plasma 108 46 - 142 U/L 11/15/2024 7:47 PM EDT [facility] Total Bilirubin, Plasma 0.7 0.2 - 1.1 mg/dL 11/15/2024 7:47 PM EDT [facility] eGFRcr 81.7 mL/min/1.7 3m*2 11/15/2024 7:47 PM EDT [facility] Comment:Reported eGFRcr in m L/min/1.73m2 is based the CKD-EPI 2020 equation that does not use a race coefficient. Blood Venous blood specimen / Unknown Venipuncture / Unknown 11/15/2024 6:51 PM EDT 11/15/2024 6:56 PM EDT Lona Ortiz MD LAB BLOOD ORDERABLES Final Result Performing Organization Address City/[facility]/ZIP Co de Phone Number [facility] [address] [place] [address] * Gold Top (11/15/2024 6:41 PM EDT) [facility] Extra Hold for add-ons 11/15/2024 9:01 PM EDT [facility] Comment:Auto resulted. Blood Venous blood specimen / Unknown 11/15/2024 6:41 PM EDT 11/15/2024 6:56 PM EDT Lona Ortiz MD LAB BLOOD ORDERABLES Final Result Performing Organization Address City/[facility]/[place] [address] * (ABNORMAL) POCT glucose meter (11/15/2024 4:49 PM EDT) [facility] POCT Glucose 135(H) 74 - 99 mg/dL [...] 11/15/2024 4:50 PM EDT [facility] Steel Barrel Reamer ID Lynda Murphy 4:50 PM EDT [facility] Device ID [id number] 11/15/2024 4:50 PM EDT [facility] Specimen Type POC Capillary 11/15/2024 4:50 PM EDT [facility] Blood Capillary blood specimen / Unknown 11/15/2024 4:49 PM EDT 11/15/2024 4:50 PM EDT us Generic Provider Poct LAB POINT OF CARE TEST DOCKED DEVICE UNSOLICITED RESULTS Final Result [facility] [address] [place] [id number] documented in this encounter Visit Diagnoses Diagnosis Fall- Primary Unspecified fall SAH (subarachnoid hemorrhage) ([facility]) Subarachnoid hemorrhage SDH (subdural hematoma) ([facility]) Subdural hemorrhage Nondisplaced fracture of distal phalanx of left thumb, initial encounter for closed fracture Acute cystitis without hematuria SAH (subarachnoid hemorrhage) ([facility]) Subarachnoid hemorrhage Subdural hemorrhage ([facility]) Subdural hemorrhage Morbid obesity with BMI of 40.0-44.9, adult ([facility]) A-fib ([facility]) Atrial fibrillation Concussion Unspecified concussion Anemia Unspecified anemia UTI (urinary tract infection) Urinary tract infection, site not specified Hyperglycemia due to diabetes mellitus ([facility]) Brain mass Unspecified condition of brain documented in this encounter Admitting Diagnoses Diagnosis SAH (subarachnoid hemorrhage) ([facility]) Subarachnoid hemorrhage documented in this [...] 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, [facility] Panic 10/26/2024 10/31/2024 Assessment Noted Time PHQ-9 Depression Total Score: 0 09/01/19 3:26 PM EDT A fall risk assessment has been complete d for the patient 11/10/2024 2:43 PM EDT A Body Mass Index follow-up plan has been documented for the patient 11/08/2024 5:14 PM EDT documented as of this encounter Care Teams Medical Technical Writer Relationship Specialty Start Date End Date Laurie Gutierrez MD [address] [place] [address] PCP - General 12/09/23 Joshua Martínez MD [address] [place] [address] [id number] [place] [address] Consulting Physician Radiation Oncology 09/19/24 documented as of this encounter
--- OUTSIDE RECORDS SUMMARY | 2024-11-19 00:35 | XMS_ITS | Encounter Summary ---
Author Organization Healthcare Address [address] [place] [address] Care Team Providers [employer] Name Role Phone Laurie Gutierrez MD Primary Care Provider [phone] Joshua Martínez MD Unavailable Paradise Pacheco RN Unavailable Unavailab le Reason for Referral * Consultation (Routine) - Authorized Specialty Diagnoses / Procedures Referred By Mackenzie t Referred To Contact Family Medicine Diagnoses Type 2 diabetes mellitus with diabetic neuropathy, unspecified whether intermediate card tender insulin use (CMS/HCC) Alin Ivey MD [address] [place] [address] Phone: tel: fax: Referral ID Status Reason Start Date Expiration Date V isits Requested Visits Authorized [id number] Authorized 11/22/2024 05/24/2026 1 1 Reason for Visit * Reason Comments Rapid Heart Rate * Auth/Cert (Routine) Specialty Diagnoses / Procedures Referred By Mackenzie t Referred To Contact Diagnoses Atrial fibrillation with rapid ventricular response (CMS/HCC) afib rvr; hx head bleed from fall. Alin Ivey MD [address] [place] [address] Phone: tel: fax: [facility] Emergency Department [address] [place] [address] Phone: tel: Referral ID Status Reason Start Date Expiration Date Visits Re quested Visits Authorized [id number] 1 1 Encounter Details Date Type Department Care Team (Latest Contact Info) Description 11/19/2024 12:35 AM EDT - 11/22/2024 4:58 PM EDT Hospital Encounter [facility] Inpatient [address] [place] [address] Jose David Topete MD [address] [place] [address] Alin Ivey MD [address] [place] [address] Atrial fibrillation with rapid ventricular response (CMS/HCC) (Primary Dx); Small cell carcinoma of lung, unspecified laterality, unspecified part of lung; Type 2 diabetes mellitus with diabetic neuropathy, unspecified whether senior care insulin use (CMS/HCC) Discharge Disposition: Home or Self Care Social [...] afraid of your partner or ex-partner? No 11/21/2024 Within the last year, have y ou been humiliated or emotionally abused in other ways by your partner or ex-partner? No Within the last year, have y ou been kicked, hit, slapped, or otherwise physically hurt by your partner or ex-partner? No 11/21/2024 Within the last year, have y ou been raped or forced to have any kind of sexual activity by your partner or ex-partner? No 11/21/2024 AUDIT-C Answer Date Recorded Q1: How often [...] the money to buy more. Never true 11/22/19 25 Within the past 12 months, t he food you bought just didn't last and you didn't have money to get more. Never true 11/21/2024 PRAPARE - Transportation Answer Date Re corded In the past 12 months, has l ack of transportation kept you from medical appointments or from getting medications? No 11/2024 In the past 12 months, has l ack of transportation kept you from meetings, work, or from getting things needed for daily living? No 11/21/2024 Housing Stability Vital Sign Answer Gregor e Recorded In the last 12 months, was t here a time when you were not able to pay the mortgage or rent on time? No 11/21/2024 In the past 12 months, how m any times have you moved where you were living? 1 11/21/2024 At any time in the past 12 m [place], were you homeless or living in a fdc (including now)? No 11/21/2024 CAGE ASSESSMENT Answer Date Recorded Cage unable [...] drink first t laurie in the morning ([employer]) to steady your nerves or to get rid of a hangover? 0 10/27/2024 CAGE Questionnaire Score 0 025 Utilities Answer Date Recorded In the past 12 months has e electric, gas, oil, or water company threatened to shut off services in your home? No 11/21/2024 Comments No Sex and Gender Information Value Date Recorded Sex Assigned at Not on file Legal Sex Female 8:32 PM EDT Gender Identity Not on file Sexual Orientation Not on file documented as of this encounter Last Filed Vital Signs Vital Sign Reading Time Taken Comments Blood Pressure 98/64 11/22/2024 4:15 PM EDT Pulse 76 11/22/2024 4:15 PM EDT Temperature 37 C (98.6 F) 11/22/2024 4:15 PM EDT Respiratory Rate 16 11/22/2024 4:15 PM EDT Oxygen Saturation 98% 11/22/2024 4:15 PM EDT Inhaled Oxygen Concentration - - Weight 117 kg (257 lb 8 oz) 11/21/2024 3:48 AM E DT Height 170.2 cm (5' 7 ) 11/19/2024 6:29 PM EDT Body Mass Index 40.33 11/19/2024 6:29 PM EDT documented in this encounter Functional Status * Calculated C-SSRS Risk Score (Lifetime/Recent) Answer Date of Assessment Author No Risk Indicated 11/21/2024 6:00 PM EDT Stephanie Pierre RN * Question Answer Date of Assessment Author 1. Wish to be (Past 1 Month) No 025 6:00 PM EDT Flor Pierre RN 2. Non-Specific Active Suici radha Thoughts (Past 1 Month) No 11/21/2024 6:00 PM EDT Gerson Pierre RN 6. Suicidal Behavior (Lifetime) No 6:00 PM EDT Flor Pierre RN documented as of this encounter Discharge Instructions * Discharge Instructions* Aaron Bowens MD - 11/22/2024 2:34 PM EDT Diabetes management: - Discontinue insulin and jardiance. Insulin was previously added on because of steroid causing elevated blood sugars. Now that you are no longer on steroid medication you may be able to continue oral medication regimen. - Restart Metformin 1000mg BID and Januvia 50mg daily - Continue to check blood sugars and make a blood sugar log - Schedule primary care visit in next 1-2 weeks - Provide primary care provider blood sugar log to determine next steps for diabetes management - Take printed after visit summary to primary care appointment. - If you are feeling unwell or if sugars are very high on Metformin and Januvia regimen, call primary care doctor to be seen earlier. You may have to restart insulin or make changes to oral medications. Atrial fibrillation - Discontinue Metoprolol succinate and start Metoprolol TARTRATE 50mg BID. The medications sound similar so be certain to only take Metoprolol TARTRATE. - Restart Xarelto on 12/01/24 as per Neurosurgery's recommendations Anemia - If feeling lightheaded or short of breath consider calling oncology clinic to schedule labs priorto appointment on 11/29 Other Medication Changes - Hold Ropinirole and Triamterene-hydrochlorothiazide. You have not been taking them while admitted. Discuss with primary care doctor about whether or not to restart these medications. documented in this encounter Medications at Time of Discharge acetaminophen (Tylenol) 325 MG tablet Take 2 tablets by mouth every 6 hours. Under [place] law, monthly prescriptions (30 days) can be [...] a day 22 g 11/08/2024 nystatin (Mycostatin) 834998 UNIT/GM powder Apply on bottom 2 times [...] se Take 1 tablet by mouth Daily. metoprolol tartrate (Lopressor) 50 MG tablet Take 1 tablet by mouth 2 times a day. 60 tablet 11/22/2024 rivaroxaban (Xarelto) 20 MG tablet Take 1 tablet by mouth 1 time each day with dinner. Take with food. documented as of this encounter Miscellaneous Notes * Luis Angel Porter - 11/22/2024 4:27 PM EDT Images from the original note were not included. [id number] Living with Lung Cancer When living with [...] not sure what to eat. This nutrition helper can teach you tips on how to [...] more about lung cancer, contact the following: ?? Lung Cancer [place] at www.lungcanceralliance.org or 073-529-4988 ?? [place] [employer] at www.cancer.org or 012-878-6977 ?? [place] Lung [employer] at lung.org or 377-710-2573 ?? National Cancer [place] at www.cancer.gov or 458-792-5558 Last Reviewed Date: 2022 00:00:00 ?? [employer]. All rights reserved. This information is not intended as a substitute for professional medical care. Always follow your healthcare professional's instructions. * Progress Notes - Talisha Mcnamara RN - 11/22/2024 1:28 PM EDT Case Management Discharge Note Teresa Urbina 63 y.o. female CSN: [id number] Admission: 11/19/2024 12:35 AM Primary Problem: Atrial fibrillation with rapid ventricular response (CMS/HCC) Primary Double Backer: Primary Caregiver: Self Assistance Available at Discharge: Current Outpatient/Agency/Support Group: infusion therapy, outpatient Availability of Care Givers (#Hours): 10-14 hours Family/Double Backer(s) Willingness Assessed to care for patient at home: Yes Family/Double Backer(s) Readiness Assessed to care for patient at home: Yes Housing Circumstances-Z Codes: Housing Circumstances (select all that apply): Low Income (101-300% Federal Poverty Guidlines) - Z596 Patient Referred to Financial or Community Resources: Discharge Facility/Level of Care Needs: Discharge Facility/Level of Care Needs: [facility] Patient's Choice of Community Agency(s): Patient's Choice of Community Agency(s): [facility] Patient/Family Anticipated Services at Transition: Patient/Family Anticipated Services at Transition: education services, home health care, outpatientcare DME/Equipment Needed after Discharge: Equipment Currently Used at Home: walker, rolling, wheelchair, manual, commode chair Equipment Needed After Discharge: none Readmission Within the Last 30 Days: Readmission Within the Last 30 Days: current reason for admission unrelated to previous admission Medicare Documentation: Follow-up: [facility] [address] [facility] [id number] Follow up Discharge Transportation: Transportation Anticipated: family or friend will provide Transportation Home at Discharge: Family/Friend will Provide Has discharge transport been arranged?: No Follow Up Transport: Transportation Needed to Follow up Appoinments: Family/Friend will Provide Additional Comments: Patient to be discharged home today. Patient is current with [facility]; CM updated. No new DME at this time. Family can provide transportation home. Talisha Mcnamara RN * Discharge Summary - Aaron Bowens MD - 11/22/2024 11:50 AM EDT Hospitalization Admit Date/Time: 11/19/2024 12:35 AM Admitting Attending: Alin Ivey Discharge Date: 11/22/2024 Discharge Attending Physician: Alin Ivey MD PCP name and Address: Laurie Gutierrez MD [address] [place] [address] Referring provider name and address: Nuria Lunsford PA [address] [place] [address] Chief Concern, Brief History of Present Illness, and Hospital Course History of Presenting Illness: Ms. 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 Of note, patient was recently admitted from 11/15/24-11/16/24 after falling and striking her head, found to have traumatic subdural and subarachnoid hemorrhage. NSGY consulted, patient was discharge after monitoring. In the ED patient was afebrile, afib w/ RVR rates 150s, tachypneic to 25, BP 105/64. Labs significant for WBC 3.61, Hgb acute on chronic anemia to 6.5, thrombocytopenia to 73, hypokalemic to 3.4, hypomagnesemic to 1.6. She was given vanc and zosyn, 1L LR along w/ 1u prbc. Diltiazem was discontinued. Hospital medicine was consulted for sepsis, UTI and afib/rvr. Per patient and chart review she was found to have a UTI prior to discharge and given macrobid. Shecontinued to have symptoms of abdominal pain and dysuria and then 11/18 developed a fever. Given prior sepsis w/ UTI this prompted her to present to [facility]. On arrival she was found to be in Afib w/ RVR and given dilt bolus and drip. WBC 5.13, Hgb 7.1, hyponatremia 133, lactate 5.1- >2.7. She had a CT Head with 5mm subdural hematoma and small volume subarachnoid hemorrhage without mass affect/midline shift. CT A/P laregely unremarkable, showed stable b/l kidney cysts and bladder wall thickening. On exam, she states feeling well, had suprapubic abdominal pain and cystitis, she has beenurinating fine. She was concerned about the fever. She has been eating and drinking less since being discharged from the hospital because everything tastes bad. Has not been taking her eliquis as directed by the surgeons. Does take metoprolol at home. She states feeling better now as compared to arrival. Currently lives in a home by herself and is able to perform ADLs. Hospital Course by Problem: #Afib w/ RVR - Hx of aflutter s/p CTI flutter ablation without recurrence but has developed afib since then - Last echo October 2023 EF 60% - RVR on admission likely 2/2 UTI and symptomatic anemia - Holding xarelto per NSGY for 2 weeks for recent SAH/SHD - On Diltiazem drip on arrival, discontinued in favor of Metoprolol on admission - In RVR 7 am, ended by increasing metoprolol to 25 mg q6h dosing - Finally transitioned to Metoprolol tartrate 50mg BID with adequate rate control END RESULT: - Holding Xarelto per NSGY, restarting on 12/01 - Continue Metoprolol tartrate 50mg BID #Sepsis likely 2/2 Urinary tract infection - On 11/16 UA moderate leuks, nitrite positive, 21-50 WBC, bacteria present. Urine culture not collected. Sent home with 9 days of Macrobid. - patient not responding to Macrobid, febrile on 7/6 am and septic - Transitioned to ceftriaxone for failure of outpatient therapy and given a bolus - Lactate improved and fever resolved END RESULT: - s/p completed course of Ceftriaxone #Symptomatic anemia, pancytopenia 2/2 chemotherapy - On admission, patient was anemic, thrombocytopenic, leukopenic - some concern initially for GI bleed. Stool examined inpatient not concerning. Most likely secondary to chemotherapy - Not s/p 2x RBC transfusions, did not require platelets while admitted END RESULT: - will give transfusion today before discharge to tide patient over until outpatient heme/onc appointment on 11/29 - Leukopenia resolved, platelets of 32 on discharge with no active bleeding #Recent traumatic subdural and subarachnoid hemorrhage - Traumatic SDH/SAH adjacent to tumor bed (approx 7mm on 11/15 CT imaging) - Over-read CTH from OSH on transfer 11/18 with improved hemorrhage (approx 5mm) - No concerning neuro exams while admitted END RESULT: - Cont holding AC as above #T2DM - On admission, patient unsure of regimen but patient believes she has been getting oral and insulin - On chart review, patient was started on insulin due to steroid-induced hyperglycemia. Previously,regimen was Metformin, Januvia, and Jardiance and A1C was 6.3 at that time indicating good control on that regimen. Now that the patient is off of the steroids, would prefer to go back to PO regimen instead of insulin. END RESULT: - discontinue insulin, restart Metformin 1000mg BID and Januvia 50mg - will hold Jardiance due to recent UTI - follow-up with PCP in 1-2 weeks to ensure adequate glycemic control - counseled patient on the necessity of timely follow-up with her PCP especially if adequate glycemic control is not achieved with this regimen. #COPD - Home inhaler formulary alternative. On 2L at baseline. #Chronic pain - Home gabapentin #HLD - home statin Surgeries and Procedures None Medication List PAUSE taking these medications rivaroxaban 20 MG tablet Wait to take this until: December 01, 2024 Commonly known as: Xarelto Take 1 tablet by mouth 1 time each day with dinner. Take with food. rOPINIRole 1 MG tablet Wait to take this until your doctor or other care provider tells you to start again. Commonly known as: Requip Take 1 tablet by mouth 2 times a day. triamterene-hydrochlorothiazide 37.5-25 MG tablet Wait to take this until your doctor or other care provider tells you to start again. Commonly known as: Maxzide-25 Take 1 tablet by mouth every morning. .. acetaminophen 325 MG tablet Commonly known as: Tylenol Take 2 tablets by mouth every 6 hours. Under [place] law, monthly prescriptions (30 days) can be [...] Breztri Aerosphere 160-9-4.8 MCG/ACT aerosol Generic drug: Obeoacv-Arcpbfvppdt-Qityiecbdz Inhale 2 puffs 2 (two) times a [...] controlled-release Take 1 tablet by mouth Daily. estradiol 0.1 MG/GM vaginal cream Commonly known [...] 3 times a day as needed. lidocaine 5 % ointment Commonly known as: [...] 2 times a day with meals. metoprolol tartrate 50 MG tablet Commonly known as: Lopressor Take 1 tablet by mouth 2 times a day. montelukast 10 MG tablet Commonly known as: Singulair Take 1 tablet by mouth nightly. mupirocin 2 % ointment Commonly known as: Bactroban Apply on head 2 times a day nystatin [id number] UNIT/GM powder Commonly known as: Mycostatin Apply [...] hours as needed for nausea or vomiting. SITagliptin 50 MG tablet Commonly known as: Januvia Take 1 tablet by mouth every morning. Where to Get Your Medications These medications were sent to [facility] [place] [place] - [address] [facility] [id number] metoprolol tartrate 50 MG tablet Discharge Diagnosis Medical Problems Active and Resolved Hospital Problems Hospital Anemia due to chemotherapy RESOLVED: Acute cystitis without hematuria * (Principal) RESOLVED: Atrial fibrillation with rapid ventricular response (CMS/HCC) Post Discharge Instructions Diabetes management: - Discontinue insulin and jardiance. Insulin was previously added on because of steroid causing elevated blood sugars. Now that you are no longer on steroid medication you may be able to continue oral medication regimen. - Restart Metformin 1000mg BID and Januvia 50mg daily - Continue to check blood sugars and make a blood sugar log - Schedule primary care visit in next 1-2 weeks - Provide primary care provider blood sugar log to determine next steps for diabetes management - Take printed after visit summary to primary care appointment. - If you are feeling unwell or if sugars are very high on Metformin and Januvia regimen, call primary care doctor to be seen earlier. You may have to restart insulin or make changes to oral medications. Atrial fibrillation management: - Discontinue Metoprolol succinate and start Metoprolol TARTRATE 50mg BID. The medications sound similar so be certain to only take Metoprolol TARTRATE. - Restart Xarelto on 12/01/24 as per Neurosurgery's recommendations Anemia: - If feeling lightheaded or short of breath consider calling oncology clinic to schedule labs priorto appointment on 11/29 Other Medication Changes: - Hold Ropinirole and Triamterene-hydrochlorothiazide. You have not been taking them while admitted. Discuss with primary care doctor about whether or not to restart these medications. Outpatient Follow-Up Future Appointments Date Time Provider Department Center 11/29/2024 10:30 AM [facility] JOSE MARTIN LEBRON [facility] 11/29/2024 11:00 AM Satnam Colvin MD [facility] 11/29/2024 12:30 PM [facility] INFUSION TREATMENT [id number] [facility] 11/30/2024 1:30 PM [facility] INFUSION TREATMENT [id number] [facility] 12/01/2024 2:00 PM [facility] 1 INFUSION TREATMENT [id number] [facility] 12/06/2024 11:40 AM Haven Blum APRN [facility] 01/19/2025 9:30 AM [facility] 01/19/2025 10:45 AM Abhilash Bangura MD [facility] 03/08/2025 1:00 PM Teresita Oconnell MD [facility] Heart I Test Results Pending At Discharge None Pertinent Physical Exam At Time of Discharge Physical Exam Constitutional: General: She is not in acute distress. Appearance: Normal appearance. She is not toxic-appearing. Eyes: General: Right eye: No discharge. Left eye: No discharge. Cardiovascular: Rate and Rhythm: Normal rate and regular rhythm. Heart sounds: Normal heart sounds. Pulmonary: Effort: Pulmonary effort is normal. No respiratory distress. Breath sounds: Normal breath sounds. No wheezing or rales. Abdominal: General: There is no distension. Palpations: Abdomen is soft. Tenderness: There is no abdominal tenderness. There is no guarding. Skin: General: Skin is warm. Neurological: Mental Status: She is alert. Psychiatric: Mood and Affect: Mood normal. Behavior: Behavior normal. Thought Content: Thought content normal. Judgment: Judgment normal. Discharge Disposition/Condition Disposition: Home Condition: Stable (s/sx potential problems absent or manageable) I spent >30 minutes of patient care and instruction time in preparation for this discharge. Carlos Mendoza, MS3 I saw and evaluated the patient with the medical student. I discussed the case with the medical student and agree with the findings and plan as documented. I personally performed the Exam and MedicalDecision Making. Aaron Bowens MD Internal Medicine & Pediatrics, PGY-2 Cosigned by Alin Ivey MD at 11/24/2024 5:39 PM EDT Associated attestation - Alin Ivey MD - 11/24/2024 5:39 PM EDT I saw and evaluated the patient. I discussed the case with the medical student and resident/fellow and agree with the findings and plan as documented. I personally participated in the management of the patient. and I spent >30 minutes of patient care and instruction time in preparation for this discharge. * Care Plan - Luis Angel Cantu - 11/22/2024 9:48 AM EDT Problem: Adult Inpatient Plan of Care Goal: Plan of Care Review Outcome: Ongoing, Progressing Flowsheets Taken 11/21/2024 1954 by Flor Pierre RN Progress: improving Taken 11/19/2024 1523 by Kavita Hall RN Plan of Care Reviewed With: patient family Goal: Patient-Specific Goal (Individualized) Outcome: Ongoing, Progressing Flowsheets (Taken 11/22/2024 0800) Patient/Family-Specific Goals (Include Timeframe): Patient will be free from fall throughout the shift Individualized Care Needs: Safety Anxieties, Fears or Concerns: None stated Goal: Absence of Hospital-Acquired Illness or Injury Outcome: Ongoing, Progressing Intervention: Identify and Manage Fall Risk Flowsheets (Taken 11/21/20241953 by Flor Pierre, RN) Safety Promotion/Fall Prevention: activity supervised fall prevention program maintained clutter-free environment maintained lighting adjusted mobility aid in reach nonskid shoes/slippers when out of bed Intervention: Prevent Skin Injury Flowsheets Taken 11/22/2024 0945 by Luis Angel Cantu Body Position: (Sitting on side of the bed.) other (see comments) Taken 11/21/2024 1000 by Flor Pierre, RN Skin Protection: hydrocolloids used skin sealant/moisture barrier applied Intervention: Prevent and Manage VTE (Venous Thromboembolism) Risk Flowsheets (Taken 11/22/2024 0800) VTE Prevention/Management: SCDs (sequential compression devices) off patient refused intervention previous patient education reinforced medication Intervention: Prevent Infection Flowsheets (Taken 11/19/2024 0819 by Darcie Anderson, RN) Infection Prevention: environmental surveillance performed hand hygiene promoted Goal: Optimal Comfort and Wellbeing Outcome: Ongoing, Progressing Intervention: Monitor Pain and Promote Comfort Flowsheets (Taken 11/21/2024 2235 by Refugio Page, RN) Pain Management Interventions: medication (see MAR) Intervention: Provide Person-Centered Care Flowsheets (Taken 11/21/20241953 by Flor Pierre, RN) Trust Relationship/Rapport: emotional support provided choices provided care explained reassurance provided thoughts/feelings acknowledged Goal: Readiness for Transition of Care Outcome: Ongoing, Progressing Intervention: Mutually Develop Transition Plan Flowsheets Taken 11/21/20241953 by Flor Pierre RN Equipment Needed After Discharge: none Current Outpatient/Agency/Support Group: infusion therapy, outpatient Outpatient/Agency/Support Group Needs: Referred to Commuity Resource Transportation Concerns: none Readmission Within the Last 30 Days: current reason for admission unrelated to previous admission Patient/Family Anticipated Services at Transition: education services home health care outpatient care Taken 11/21/2024 1222 by Talisha Mcnamara RN Equipment Currently Used at Home: walker, rolling wheelchair, manual commode chair Anticipated Changes Related to Illness: none Transportation Anticipated: family or friend will provide Concerns to be Addressed: discharge planning Patient/Family Anticipates Transition to: home Problem: Dysrhythmia Goal: Normalized Cardiac Rhythm Outcome: Ongoing, Progressing Intervention: Monitor and Manage Cardiac Rhythm Effect Flowsheets Taken 11/22/2024 0800 by Luis Angel Cantu VTE Prevention/Management: SCDs (sequential compression devices) off patient refused intervention previous patient education reinforced medication Taken 11/21/20241953 by Flor Pierre RN Stabilization Measures: legs elevated provider notified respiratory support increased Dysrhythmia Management: (medication) cardioversion assistance provided other (see comments) Problem: Fall Injury Risk Goal: Absence of Fall and Fall-Related Injury Outcome: Ongoing, Progressing Intervention: Identify and Manage Contributors Flowsheets (Taken 11/21/20241953 by Flor Pierre, RN) Medication Review/Management: medications reviewed provider consulted Self-Care Promotion: independence encouraged adaptive equipment use encouraged Intervention: Promote Injury-Free Environment Flowsheets (Taken 11/21/20241953 by Flor Pierre, RN) Safety Promotion/Fall Prevention: activity supervised fall prevention program maintained clutter-free environment maintained lighting adjusted mobility aid in reach nonskid shoes/slippers when out of bed Problem: Infection Goal: Absence of Infection Signs and Symptoms Outcome: Ongoing, Progressing Intervention: Prevent or Manage Infection Flowsheets (Taken 11/22/2024 0800) Isolation Precautions: precautions maintained * Care Plan - Flor Pierre RN - 11/21/2024 8:00 PM EDT Problem: Adult Inpatient Plan of Care Goal: Plan of Care Review 11/21/20241953 by Flor Pierre RN Outcome: Ongoing, Progressing Flowsheets (Taken 11/21/20241953) Progress: improving 11/21/2024 07 by Flor Pierre RN Outcome: Ongoing, Progressing Goal: Patient-Specific Goal (Individualized) 11/21/20241953 by Flor Pierre RN Outcome: Ongoing, Progressing 11/21/2024735 by Flor Pierre RN Outcome: Ongoing, Progressing Goal: Absence of Hospital-Acquired Illness or Injury 11/21/20241953 by Flor Pierre RN Outcome: Ongoing, Progressing 11/21/2024735 by Pierre, Flor R, RN Outcome: Ongoing, Progressing Intervention: Identify and Manage Fall Risk Flowsheets (Taken 11/21/20241953) Safety Promotion/Fall Prevention: activity supervised fall prevention program maintained clutter-free environment maintained lighting adjusted mobility aid in reach nonskid shoes/slippers when out of bed Intervention: Prevent Skin Injury Flowsheets (Taken 11/21/2024 1000) Body Position: upper extremity elevated heels elevated legs elevated Damon chair Skin Protection: hydrocolloids used skin sealant/moisture barrier applied Intervention: Prevent and Manage VTE (Venous Thromboembolism) Risk Flowsheets (Taken 11/21/2024 1800) VTE Prevention/Management: medication SCDs (sequential compression devices) off Intervention: Prevent Infection Flowsheets (Taken 11/19/2024 0819 by Darcie Anderson RN) Infection Prevention: environmental surveillance performed hand hygiene promoted Goal: Optimal Comfort and Wellbeing 11/21/20241953 by Flor Pierre RN Outcome: Ongoing, Progressing 11/21/2024 07 by Flor Pierre RN Outcome: Ongoing, Progressing Intervention: Monitor Pain and Promote Comfort Flowsheets (Taken 11/21/20241953) Pain Management Interventions: medication (see MAR) quiet environment facilitated breathing exercises awakened for pain meds per patient request care clustered emotional support Intervention: Provide Person-Centered Care Flowsheets (Taken 11/21/20241953) Trust Relationship/Rapport: emotional support provided choices provided care explained reassurance provided thoughts/feelings acknowledged Goal: Readiness for Transition of Care 11/21/20241953 by Flor Pirere RN Outcome: Ongoing, Progressing 11/21/2024 07 by Flor Pierre RN Outcome: Ongoing, Progressing Intervention: Mutually Develop Transition Plan Flowsheets Taken 11/21/20241953 by Flor Pierre RN Equipment Needed After Discharge: none Current Outpatient/Agency/Support Group: infusion therapy, outpatient Outpatient/Agency/Support Group Needs: Referred to [facility] Transportation Concerns: none Readmission Within the Last 30 Days: current reason for admission unrelated to previous admission Patient/Family Anticipated Services at Transition: education services home health care outpatient care Taken 11/21/2024 1222 by Talisha Mcnamara RN Equipment Currently Used at Home: walker, rolling wheelchair, manual commode chair Patient/Family Anticipates Transition to: home Problem: Dysrhythmia Goal: Normalized Cardiac Rhythm 11/21/20241953 by Flor Pierre RN Outcome: Ongoing, Progressing 11/21/2024 07 by Flor Pierre RN Outcome: Ongoing, Progressing Intervention: Monitor and Manage Cardiac Rhythm Effect Flowsheets Taken 11/21/20241953 Stabilization Measures: legs elevated provider notified respiratory support increased Dysrhythmia Management: (medication) cardioversion assistance provided other (see comments) Taken 11/21/2024 1800 VTE Prevention/Management: medication SCDs (sequential compression devices) off Problem: Fall Injury Risk Goal: Absence of Fall and Fall-Related Injury 11/21/20241953 by Flor Pierre RN Outcome: Ongoing, Progressing 11/21/2024735 by Flor Pierre RN Outcome: Ongoing, Progressing Intervention: Identify and Manage Contributors Flowsheets (Taken 11/21/20241953) Medication Review/Management: medications reviewed provider consulted Self-Care Promotion: independence encouraged adaptive equipment use encouraged Intervention: Promote Injury-Free Environment Flowsheets (Taken 11/21/20241953) Safety Promotion/Fall Prevention: activity supervised fall prevention program maintained clutter-free environment maintained lighting adjusted mobility aid in reach nonskid shoes/slippers when out of bed Problem: Infection Goal: Absence of Infection Signs and Symptoms 11/21/20241953 by Flor Pierre RN Outcome: Ongoing, Progressing 11/21/2024735 by Flor Pierre RN Outcome: Ongoing, Progressing Intervention: Prevent or Manage Infection Flowsheets (Taken 11/21/2024 1800) Isolation Precautions: precautions maintained * Progress Notes - Douglas Garcia MD - 11/21/2024 1:36 PM EDT Subjective Overnight the patient experienced atrial fibrillation with rapid ventricular response requiring an additional dose of metoprolol 25mg to achieve rate/rhythm control. On exam today the patient complains of bladder pain without dysuria. The patient also described a stiff back but attributes this to her recent fall. The patient also endorses pink urine which she hasnot noticed before. The patient denies any SOB or chest pain/palpitations this morning. The patientcomplains of a decreased appetite which worries her. Review of Systems Constitutional: Positive for appetite change. Respiratory: Negative for shortness of breath. Cardiovascular: Negative for chest pain and palpitations. Genitourinary: Positive for pelvic pain. Negative for dysuria. Musculoskeletal: Positive for back pain. Objective Vitals Temp: [36.7 ??C (98.1 ??F)-37.7 ??C (99.8 ??F)] 36.8 ??C (98.3 ??F) Heart Rate: [80-147] 80 Resp: [12-24] 12 BP: (96-117)/(56-77) 106/56 Physical Exam Constitutional: Appearance: She is obese. Cardiovascular: Rate and Rhythm: Normal rate and regular rhythm. Pulmonary: Effort: Pulmonary effort is normal. Abdominal: Tenderness: There is no abdominal tenderness. There is no right CVA tenderness or left CVA tenderness. Neurological: Mental Status: She is alert. Assessment & Plan Atrial fibrillation with rapid ventricular response (CMS/HCC) Teresa Urbina is a 63 y.o. female with PMH as per above who presents from OSH for acute on chronicanemia and afib w/ RVR. #Afib w/ RVR - Hx of aflutter s/p CTI flutter ablation without recurrence but has developed afib - Last echo October 2023 EF 60% - Holding xarelto per NSGY for 2 weeks for recent SAH/SHD - RVR 11/21 am, ended by metoprolol 25 mg q6h dosing Plan: - Metoprolol tartrate 50 mg BID starting tonight (11/21) at 2100 - treating underlying infection and anemia per below #Sepsis likely 2/2 Urinary tract infection - On 11/16 UA moderate leuks, nitrite positive, 21-50 WBC, bacteria present. Urine culture not collected. - Sent home with 9 days of Macrobid. - patient not responding to Macrobid, febrile on 7 am Plan: - Switching Macrobid to ceftriaxone 1g IV daily for 3 days (11/20-11/22) #Symptomatic anemia, pancytopenia 2/2 chemotherapy - Most likely secondary to chemotherapy - some concern initially for GI bleed. Stool examined inpatient not concerning. Patient take iron pill at home. - Hgb 6.5 on admission, stable after 1 unit pRBC Plan: - Daily cbc to monitor - Blood transfusion PRN if Hgb falls below 7.0 #Recent traumatic subdural and subarachnoid hemorrhage - Traumatic SDH/SAH adjacent to tumor bed (approx 7mm on 11/15 CT imaging) - Over-read CTH from OSH on transfer 11/18 with improved hemorrhage (approx 5mm) - Cont holding AC as above Chronic Medical Conditions: #T2DM - 10u basal + SSI #COPD - Home inhaler formulary alternative. On 2L at baseline. #Chronic pain - Home gabapentin #HLD - home statin [place], [place] Douglas Garcia MD Internal Medicine and Psychiatry PGY-1 Cosigned by Alin Ivey MD at 11/21/2024 8:49 PM EDT Associated attestation - Alin Ivey MD - 11/21/2024 8:49 PM EDT I saw and evaluated the patient. I discussed the case with the medical student and resident/fellow and agree with the findings and plan as documented. I personally participated in the management of the patient. * Progress Notes - Talisha Mcnamara RN - 11/21/2024 12:52 PM EDT Case Management Adult Initial Progress Note Teresa Urbina 63 y.o. female CSN: [id number] Admission: 11/19/2024 12:35 AM Primary Problem: Atrial fibrillation with rapid ventricular response (CMS/HCC) Fitness Director reviewed chart and spoke with patient to complete this Initial Case Management Assessment. PCP: Laurie Gutierrez MD Emergency Contact: Extended Emergency Contact Information Primary Emergency Contact: Zachary Urbina Mobile Relation: Son Preferred language: Danish Repossessor needed? No Secondary Emergency Contact: NicoleAurora Mobile Relation: Daughter Preferred language: Danish Repossessor needed? No Insurance: Primary Visit Coverage Payer Plan Sponsor Code Group Number Group Name [employer] [id number] Primary Visit Coverage Subscriber Subscriber ID Subscriber Name Subscriber SSN Subscriber Address [id number] TERESA URBINA [id number] [place] [id number] Patient information: Primary Caregiver: Self Support System: Immediate family Daily Living Activities: Functional Status: Minimum assistance Living Arrangements: Alone Type of Residence: Private residence [address] [place] [id number] Smoker in the Home?: N/A Current DME: Equipment Currently Used at Home: walker, rolling, wheelchair, manual, commode chair Income Information: Income Source: Retired Housing Circumstances-Z Codes: Housing Circumstances (select all that apply): Low Income (101-300% Federal Poverty Guidlines) - Z596 Patient Referred to: Anticipated Discharge Date: TBD Patient's Discharge Goal: Patient/Family Anticipates Transition to: home Assistance Available at Discharge: Availability of Care Givers (#Hours): No assistance needed Discharge Transport: Transportation Anticipated: family or friend will provide Follow Up Transport: Transportation Needed to Follow up Appoinments: Family/Friend will Provide Home Health / Home Infusion / Outpatient Dialysis Services: [facility]- Home Oxygen Living Will/Advance Directive/Power of Director Of Patient Care /Guardian: Have you reviewed your Advance Directive and is it valid for this stay?: No Advance Directive: Patient has advance directive, copy in chart Information Provided on Healthcare Directives: No Pre-existing DNR/DNI Order: No Patient Requests Assistance: No Additional Comments: Patient with PMH as per above who presents from OSH for acute on chronic anemia and afib w/ RVR. Patient states she lives alone and has some assistance at home. She has RW/WC and BSC at home. Is current with home health but she is unsure of agency. She receives home oxygen from [facility]. Family can provide transportation home. CM will continue to follow. Talisha Mcnamara RN * Consults - Talisha Pepper RD - 11/21/2024 11:19 AM EDT Adult Nutrition Evaluation Note Teresa Urbina 63 y.o. female CSN: [id number] Room/Bed 876/876A Nutrition evaluation type: assessment Reason for evaluation: nurse consult Hospital course: 63 yoF presents to ED 11/19 from OSH for afib w/RVR and UTI. Past medical/ surgical history: Past Medical History[1] Surgical History[2] Social history: 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[3] Additional comments: Pt seen in room sitting up in chair. Reports santo is fair- noted avg intakes ~35%. She reports UBW ~250#. No issues with N/V/D/C at this time. Lunch did arrive during my visit and she requested something different. Spoke with nursing and nursing agreeable to order new tray. RN notes pt santo is declined and asking about marinol-RD sent message to first call to check if this is appropriate med for patient. Vitals and Basic Assessment: BP: 106/56 Temp: 36.8 ??C (98.3 ??F) Oxygen Therapy: Supplemental oxygen O2 Delivery Method: Nasal cannula Ellis Coma Scale Score: 15 Rosendo Scale Score: 19 Most Recent BM Date: 11/21/24 GI Symptoms: None Edema: Left lower extremity, Right lower extremity Allergies: NKFA Medications: Current Scheduled Medications[4] Meds were reviewed: Yes Labs: Lab Results Component Value Date GLUCOSE 195 (H) 11/21/2024 CALCIUM 8.1 (L) 11/21/2024 NA 140 11/21/2024 K 3.4 (L) 11/21/2024 CO2 25 11/21/2024 CL 102 11/21/2024 BUN 7 (L) 11/21/2024 CREATININE 0.74 11/21/2024 PHOS 2.1 (L) 11/20/2024 MG 1.7 (L) 11/20/2024 HGBA1C 6.3 (H) 09/02/2024 Lab Results Component Value Date WBC 7.16 11/21/2024 HGB 7.5 (L) 11/21/2024 HCT 23.5 (L) 11/21/2024 MCV 93 11/21/2024 PLT 37 (L) 11/21/2024 Anthropometrics: Height: 170.2 cm (5' 7 ) Weight: 117 kg (257 lb 8 oz) BMI (Calculated): 40.32 Weight Evaluation: Extreme Obesity (BMI > 40) Finger Body Weight (kg): 61.3 Percent Finger Body Weight: 190 Adjusted Body Weight (kg): 75.2 Estimated Needs: Metabolic Cart Study Results: Current Nutrition Intake: Diet Order: Adult Diet Diet Texture: Regular Other Restrictions: (disposables) Percent Meals Eaten (%): 36% x 6 recorded meals Diet Experience and Nutrition History: Diet Education Provided: Will monitor Pertinent home medications: reviewed Pentecostal needs: Nutrition Focused Physical Exam: Physical exam performed on (date): 11/21 Temples (muscles): None Clavicle (muscle): None Shoulder (muscle): None Orbital (fat): None Triceps (fat): None Assessment of Malnutrition: Malnutrition Identified: No Nutrition Problem: Inadequate oral intake related to acute illness as evidenced by po intake 36%. Status of Nutrition Diagnosis: New Nutrition Interventions and Recommendations: - Boost VHC at breakfast - Encourage adequate po intake Nutrition Monitoring and Goals: - PO intake > 75% of most meals - Monitor po intake and tolerance, weight changes, labs, GI function and skin integrity. Acuity Level: 1 Talisha Pepper, RD, LD [1] Past Medical History: Diagnosis Date Brain [...] SURGERY TUBAL LIGATION N/A Tubal Ligation from [facility] TYMPANOSTOMY TUBE PLACEMENT N/A Ear Surgery Eustachian Tube from [facility] [3] 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 Tobacco Use Smoking status: Former Current packs/day: 0.00 Average packs/day: 1.5 packs/day for 48.4 years (72.6 ttl pk-yrs) Types: Cigarettes Start date: 1975 Quit date: 10/17/2023 Years since quittin.0 Passive exposure: Past Smokeless tobacco: Never Vaping Use Vaping status: Never Used Substance Use Topics Alcohol use: Never Drug use: Never [4] atorvastatin, 40 mg, Oral, q PM cefTRIAXone, 1 g, Intravenous, q24h gabapentin, 600 mg, Oral, TID insulin glargine-yfgn, 10 Units, Subcutaneous, Nightly insulin lispro, 0-5 Units, Subcutaneous, TID with meals insulin lispro, 0-3 Units, Subcutaneous, Twice at night metoprolol tartrate, 25 mg, Oral, q8h BRIDGETTE metoprolol tartrate, 50 mg, Oral, BID Tiotropium [place] Monohydrate, 2 puff, Inhalation, Daily AND mometasone- formoterol, 2 puff, Inhalation, BID pantoprazole, 40 mg, Oral, Daily Insert peripheral IV, , , Once AND Saline lock IV, , , Once AND sodium chloride, 10 mL, Intravenous, q12h AND sodium chloride, 10 mL, Intravenous, PRN * Care Plan - Flor Pierre RN - 11/21/2024 7:36 AM EDT Problem: Adult Inpatient Plan of Care Goal: Plan of Care Review Outcome: Ongoing, Progressing Goal: Patient-Specific Goal (Individualized) Outcome: Ongoing, Progressing Goal: Absence of Hospital-Acquired Illness or Injury Outcome: Ongoing, Progressing Goal: Optimal Comfort and Wellbeing Outcome: Ongoing, Progressing Goal: Readiness for Transition of Care Outcome: Ongoing, Progressing Problem: Dysrhythmia Goal: Normalized Cardiac Rhythm Outcome: Ongoing, Progressing Problem: Fall Injury Risk Goal: Absence of Fall and Fall-Related Injury Outcome: Ongoing, Progressing Problem: Infection Goal: Absence of Infection Signs and Symptoms Outcome: Ongoing, Progressing * Care Plan - Refugio Page RN - 11/21/2024 6:02 AM EDT Problem: Dysrhythmia Goal: Normalized Cardiac Rhythm Outcome: Ongoing, Not Progressing Patient remains in afib RVR despite multiple administrations of PO Lopressor. Pt remains asymptomatic Problem: Adult Inpatient Plan of Care Goal: Patient-Specific Goal (Individualized) Flowsheets (Taken 11/21/2024 2877) Patient/Family-Specific Goals (Include Timeframe): Pt will be hemodynamically stable by 11/22 Individualized Care Needs: hemodynamically stable Anxieties, Fears or Concerns: prognosis Goal: Optimal Comfort and Wellbeing Intervention: Provide Person-Centered Care Flowsheets (Taken 11/20/2024 0416) Trust Relationship/Rapport: emotional support provided empathic listening provided questions encouraged questions answered reassurance provided * Consults - Roberto Lobato RN - 11/21/2024 12:44 AM EDT Labs obtained with US in the left AC x 1 attempt. Specimens handed to primary RN. * Significant Event - Jojo Singh RN - 11/21/2024 12:11 AM EDT 11/20/24 2348 Event/Notification Description Event Location [facility] and Room Number 876 Reason for Rapid Response Team notification mews Is the patient a DNR? No Type of Event PEWS/MEWS alert Method of Notification PEWS/MEWS alert Vitals Temp 37.4 ??C (99.3 ??F) Temp Source Axillary Heart Rate (!) 136 Resp 24 SpO2 100 % COMMERCIAL LENDING VICE PRESIDENT notified of mews alert--messaged primary RN who has no concerns at this time. RN will continue to monitor closely. * Progress Notes - Douglas Garcia MD - 11/20/2024 1:08 PM EDT Images from the original note were not included. Hospital Medicine Progress Note Subjective Overnight team paged for Afib RVR, and gave metoprolol 25 at 2:00 am with good response. Patient also spiked fever to 38.4. Patient denied any mental status changes. States that she feels well this AM except that she has some nausea. Agrees with current plan. Has family at bedside. Objective Last Recorded Vitals Blood pressure 118/54, pulse 83, temperature 36.8 ??C (98.2 ??F), resp. rate 19, weight 118 kg (260lb 2.3 oz), SpO2 99%. Physical Exam Constitutional: General: She is not in acute distress. Appearance: Normal appearance. She is obese. She is not ill-appearing. HENT: Head: Comments: Craniotomy scar well healed non infected appearing Nose: Nose normal. Mouth/Throat: Mouth: Mucous membranes are moist. Eyes: Pupils: Pupils are equal, round, and reactive to light. Cardiovascular: Rate and Rhythm: Tachycardia present. Rhythm irregular. Heart sounds: No murmur heard. Pulmonary: Effort: Pulmonary effort is normal. No respiratory distress. Breath sounds: Normal breath sounds. Abdominal: Palpations: Abdomen is soft. Tenderness: There is no abdominal tenderness. Genitourinary: Rectum: Normal. Musculoskeletal: General: No swelling or tenderness. Cervical back: Normal range of motion. Skin: General: Skin is warm and dry. Neurological: General: No focal deficit present. Mental Status: She is alert and oriented to person, place, and time. Mental status is at baseline. Motor: No weakness. Coordination: Coordination normal. Psychiatric: Mood and Affect: Mood normal. Data Labs personally reviewed: Hemoglobin stable at 7.9, k: 3.1, m.1, phos 1.7 Imaging No new imaging Assessment/Plan Principal Problem: Atrial fibrillation with rapid ventricular response (CMS/HCC) Teresa Urbina is a 63 y.o. female with PMH as per above who presents from OSH for acute on chronicanemia and afib w/ RVR. #Afib w/ RVR - Hx of aflutter s/p CTI flutter ablation without recurrence but has developed afib - Last echo October 2023 EF 60% - Holding xarelto per NSGY for 2 weeks for recent SAH/SHD - RVR 7/6 am, ended by metoprolol 25 mg q6h dosing Plan: - Metoprolol tartrate 25 mg PO q8h - treating underlying infection and anemia per below #Sepsis likely 2/2 Urinary tract infection - On 11/16 UA moderate leuks, nitrite positive, 21-50 WBC, bacteria present. Urine culture not collected. - Sent home with 9 days of Macrobid. - patient not responding to Macrobid, febrile on 76 am Plan: - Switching Macrobid to ceftriaxone 1g IV daily for 3 days given clinical worsening #Symptomatic anemia, pancytopenia 2/2 chemotherap - Most likely secondary to chemotherapy - some concern initially for GI bleed. Stool examined inpatient not concerning. Patient take iron pill at home. - Hgb 6.5 on admission, stable after 1 unit pRBC Plan: Daily cbc to monitor, transfuse as needed #Recent traumatic subdural and subarachnoid hemorrhage - Traumatic SDH/SAH adjacent to tumor bed (approx 7mm on 11/15 CT imaging) - Over-read CTH from OSH on transfer 11/18 with improved hemorrhage (approx 5mm) - Cont holding AC as above Chronic Medical Conditions: #T2DM - 10u basal + SSI #COPD - Home inhaler formulary alternative. On 2L at baseline. #Chronic pain - Home gabapentin #HLD - home statin Douglas Garcia MD Internal Medicine and Psychiatry PGY-1 Cosigned by Alin Ivey MD at 11/21/2024 8:48 PM EDT Associated attestation - Alin Ivey MD - 11/21/2024 8:48 PM EDT I saw and evaluated the patient. I discussed the case with the resident/fellow and agree with the findings and plan as documented. * Significant Event - Haven Agrawal RN - 11/20/2024 1:02 PM EDT 11/20/24 1130 Event/Notification Description Event Location [facility] and Room Number [id number] 876 Reason for Rapid Response Team notification decline Is the patient a DNR? No Type of Event Decline Type of Decline Cardiac Method of Notification Nurse (specify) (JOSE MARTIN Patel) Rapid Response Outcome Survival Yes Rapid Response Termination Due to Patient remained on floor 1130--Primary RN Amanda messaged COMMERCIAL LENDING VICE PRESIDENT about a vital sign alert on Mrs. Urbina. Pt's HR has been 140's-160's. 25 mg metoprolol was admin earlier without any changes. Pt has been normotensive, no changes in condition. Pt does not have a fever at this time. Team is aware, wanted to have COMMERCIAL LENDING VICE PRESIDENT aware. Pt had recent SDH and is currently not receiving anticoagulation. During chart review, noted pt [id number] toprol xl daily. Messaged team (MD Garcia and MD Ivey). Mds plan is to give 50 mg at 1400 today, unless HR sustains higher and/or hypotension occurs. Primary RN satisfied with poc at this time.Primary RN to continue to monitor patient. Please notify MD and COMMERCIAL LENDING VICE PRESIDENT of any changes in patients condition and/or concerns. * Care Plan - Flor Pierre RN - 11/20/2024 7:34 AM EDT Problem: Adult Inpatient Plan of Care Goal: Plan of Care Review 11/20/2024732 by Flor Pierre RN Outcome: Ongoing, Progressing Flowsheets Taken 11/20/2024732 by Flor Pierre RN Progress: improving Taken 11/19/2024 1523 by Kavita Hall RN Plan of Care Reviewed With: patient family 11/19/20241827 by Flor Pierre RN Outcome: Ongoing, Progressing Goal: Patient-Specific Goal (Individualized) 11/20/2024732 by Flor Pierre RN Outcome: Ongoing, Progressing 11/19/20241827 by Flor Pierre RN Outcome: Ongoing, Progressing Goal: Absence of Hospital-Acquired Illness or Injury 11/20/2024732 by Flor Pierre RN Outcome: Ongoing, Progressing 11/19/20241827 by Flor Pierre RN Outcome: Ongoing, Progressing Goal: Optimal Comfort and Wellbeing 11/20/2024732 by Flor Pierre RN Outcome: Ongoing, Progressing 11/19/20241827 by Flor Pierre RN Outcome: Ongoing, Progressing Goal: Readiness for Transition of Care 11/20/2024732 by Flor Pierre RN Outcome: Ongoing, Progressing 11/19/20241827 by Flor Pierre RN Outcome: Ongoing, Progressing Problem: Dysrhythmia Goal: Normalized Cardiac Rhythm 11/20/2024 0733 by Flor Pierre RN Outcome: Ongoing, Progressing 11/19/2024 1828 by Flor Pierre RN Outcome: Ongoing, Progressing 11/19/2024 1827 by Flor Pierre RN Outcome: Ongoing, Progressing * Care Plan - Refugio Page RN - 11/20/2024 4:18 AM EDT Problem: Dysrhythmia Goal: Normalized Cardiac Rhythm Outcome: Ongoing, Progressing Note: Pt converted back into afib RVR this morning, She is asymptomatic. Problem: Adult Inpatient Plan of Care Goal: Patient-Specific Goal (Individualized) Flowsheets (Taken 11/20/2024 0300) Patient/Family-Specific Goals (Include Timeframe): Patient will be free from fall throughout the shift Individualized Care Needs: Safety Anxieties, Fears or Concerns: None stated Goal: Optimal Comfort and Wellbeing Intervention: Provide Person-Centered Care Flowsheets (Taken 11/20/2024 0416) Trust Relationship/Rapport: emotional support provided empathic listening provided questions encouraged questions answered reassurance provided * Care Plan - Flor Pierre RN - 11/19/2024 6:28 PM EDT Problem: Dysrhythmia Goal: Normalized Cardiac Rhythm Outcome: Ongoing, Progressing Problem: Adult Inpatient Plan of Care Goal: Plan of Care Review Outcome: Ongoing, Progressing Goal: Patient-Specific Goal (Individualized) Outcome: Ongoing, Progressing Goal: Absence of Hospital-Acquired Illness or Injury Outcome: Ongoing, Progressing Goal: Optimal Comfort and Wellbeing Outcome: Ongoing, Progressing Goal: Readiness for Transition of Care Outcome: Ongoing, Progressing Problem: Dysrhythmia Goal: Normalized Cardiac Rhythm 11/19/2024 1828 by Flor Pierre RN Outcome: Ongoing, Progressing 11/19/2024 182 by Flor Pierre RN Outcome: Ongoing, Progressing * Progress Notes - Nuria Cantu, PharmD - 11/19/2024 8:54 AM EDT Pharmacokinetic Consult - Therapeutic Drug Monitoring HPI and Hospital Course: Teresa Urbina is a 63 y.o. female presenting with sepsis who was started on IV vancomycin for . Pharmacy was consulted for management of vancomycin. Dose History: Recent Vancomycin Admin vancomycin (Vancocin) 2,250 mg in sodium chloride 0.9 % 500 mL (mg) 2,250 mg Given 11/19/24 0213 Wt Readings from Last 1 Encounters: 11/19/24 118 kg (260 lb 2.3 oz) BMI: 40.74 kg/m?? Creatinine, Plasma (mg/dL) Date/Time Value 11/19/2024 0051 1.08 11/15/2024 1851 0.81 11/08/2024 1136 0.77 Estimated Creatinine Clearance: 70.9 mL/min (by C-G formula based on SCr of 1.08 mg/dL). Assessment Estimated kinetic evaluation utilizing population kinetics: Vancomycin Dosing Method Vancomycin Dose Calculation Method Area under the curve (AUC) dosing General Parameters for Vancomycin Dose Calculation (AUC) Dosing Weight 118 kg (260 lb 2.3 oz) Vancomycin clearance calculation method Crass equation (For BMI greater than 30) Administer over 60 minutes AUC 24 hr goal (mg-hr/L) 500 mg??hr/L Estimated creatinine clearance (mL/min 70 mL/min Matzke Equation Parameters for Vancomycin Dose Calculation (AUC) Estimated vancomycin Vd (0.7 L/kg typically) 0.7 L/kg (Typical) Crass Equation Parameters for Vancomycin Dose Calculation (AUC) Serum creatinine (mg/dL) 1.08 mg/dL Recommended Initial Vancomycin Dosing Estimated Ke (hr ^-1) 0.0625 hr^-1 Estimated half-life (hr) 11.09 hr Estimated vancomycin Cl (L/hr) 4.004 Recommended TDD (mg) 2002 Plan 1. Recommend loading dose of 2250 mg IV once 2. Recommend dosing IV vancomycin intermittently. Dosing intermittently secondary to JORGE (baseline Scr ~ 0.64 and is 1.08 on admission). 3. Monitor renal function (Scr and BUN) and UOP at least 2-3x/week or more frequently if renal function changes. 4. Obtain vancomycin random level with AM labs on 11/20/24. Pharmacy will continue to follow. Submitted by: Nuria Cantu PharmD 11/19/2024 8:53 AM * Hospital Course - Alin Ivey MD - 11/19/2024 3:28 AM EDT History of Presenting Illness: Ms. 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 Of note, patient was recently admitted from 11/15/24-11/16/24 after falling and striking her head, found to have traumatic subdural and subarachnoid hemorrhage. NSGY consulted, patient was discharge after monitoring. In the ED patient was afebrile, afib w/ RVR rates 150s, tachypneic to 25, BP 105/64. Labs significant for WBC 3.61, Hgb acute on chronic anemia to 6.5, thrombocytopenia to 73, hypokalemic to 3.4, hypomagnesemic to 1.6. She was given vanc and zosyn, 1L LR along w/ 1u prbc. Diltiazem was discontinued. Hospital medicine was consulted for sepsis, UTI and afib/rvr. Per patient and chart review she was found to have a UTI prior to discharge and given macrobid. Shecontinued to have symptoms of abdominal pain and dysuria and then 11/18 developed a fever. Given prior sepsis w/ UTI this prompted her to present to [facility]. On arrival she was found to be in Afib w/ RVR and given dilt bolus and drip. WBC 5.13, Hgb 7.1, hyponatremia 133, lactate 5.1- >2.7. She had a CT Head with 5mm subdural hematoma and small volume subarachnoid hemorrhage without mass affect/midline shift. CT A/P laregely unremarkable, showed stable b/l kidney cysts and bladder wall thickening. On exam, she states feeling well, had suprapubic abdominal pain and cystitis, she has beenurinating fine. She was concerned about the fever. She has been eating and drinking less since being discharged from the hospital because everything tastes bad. Has not been taking her eliquis as directed by the surgeons. Does take metoprolol at home. She states feeling better now as compared to arrival. Currently lives in a home by herself and is able to perform ADLs. Hospital Course by Problem: #Afib w/ RVR - Hx of aflutter s/p CTI flutter ablation without recurrence but has developed afib since then - Last echo October 2023 EF 60% - RVR on admission likely 2/2 UTI and symptomatic anemia - Holding xarelto per NSGY for 2 weeks for recent SAH/SHD - On Diltiazem drip on arrival, discontinued in favor of Metoprolol on admission - In RVR 7/7 am, ended by increasing metoprolol to 25 mg q6h dosing - Finally transitioned to Metoprolol tartrate 50mg BID with adequate rate control END RESULT: - Holding Xarelto per NSGY, restarting on 12/01 - Continue Metoprolol tartrate 50mg BID #Sepsis likely 2/2 Urinary tract infection - On 11/16 UA moderate leuks, nitrite positive, 21-50 WBC, bacteria present. Urine culture not collected. Sent home with 9 days of Macrobid. - patient not responding to Macrobid, febrile on 7/6 am and septic - Transitioned to ceftriaxone for failure of outpatient therapy and given a bolus - Lactate improved and fever resolved END RESULT: - s/p completed course of Ceftriaxone #Symptomatic anemia, pancytopenia 2/2 chemotherapy - On admission, patient was anemic, thrombocytopenic, leukopenic - some concern initially for GI bleed. Stool examined inpatient not concerning. Most likely secondary to chemotherapy - Not s/p 2x RBC transfusions, did not require platelets while admitted END RESULT: - will give transfusion today before discharge to tide patient over until outpatient heme/onc appointment on 11/29 - Leukopenia resolved, platelets of 32 on discharge with no active bleeding #Recent traumatic subdural and subarachnoid hemorrhage - Traumatic SDH/SAH adjacent to tumor bed (approx 7mm on 11/15 CT imaging) - Over-read CTH from OSH on transfer 11/18 with improved hemorrhage (approx 5mm) - No concerning neuro exams while admitted END RESULT: - Cont holding AC as above #T2DM - On admission, patient unsure of regimen but patient believes she has been getting oral and insulin - On chart review, patient was started on insulin due to steroid-induced hyperglycemia. Previously,regimen was Metformin, Januvia, and Jardiance and A1C was 6.3 at that time indicating good control on that regimen. Now that the patient is off of the steroids, would prefer to go back to PO regimen instead of insulin. END RESULT: - discontinue insulin, restart Metformin 1000mg BID and Januvia 50mg - will hold Jardiance due to recent UTI - follow-up with PCP in 1-2 weeks to ensure adequate glycemic control - counseled patient on the necessity of timely follow-up with her PCP especially if adequate glycemic control is not achieved with this regimen. #COPD - Home inhaler formulary alternative. On 2L at baseline. #Chronic pain - Home gabapentin #HLD - home statin * H&P - Aaron Bowens MD - 11/19/2024 2:50 AM EDTAssociated Order(s): Consult to Hospital Medicine Images from the original note were not included. Hospital Medicine History & Physical Consult to Hospital Medicine Consult performed by: Aaron Bowens MD Consult ordered by: Jose David Topete MD Subjective 11/19/2024 Chief Complaint: Chief Complaint Patient presents with Rapid Heart Rate History Of Present Illness Teresa Urbina is a 63 y.o. 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 Of note, patient was recently admitted from 11/15/24-11/16/24 after falling and striking her head, found to have traumatic subdural and subarachnoid hemorrhage. NSGY consulted, patient was discharge after monitoring. Per patient and chart review she was found to have a UTI prior to discharge and given macrobid. She continued to have symptoms of abdominal pain and dysuria and then 11/18 developed a fever. Given prior sepsis w/ UTI this prompted her to present to [facility]. On arrival she was found to be in Afib w/ RVR and given dilt bolus and drip. WBC 5.13, Hgb 7.1, hyponatremia 133, lactate 5.1->2.7. She had a CT Head with 5mm subdural hematoma and small volume subarachnoid hemorrhage without mass affect/midline shift. CT A/P laregely unremarkable, showed stable b/l kidney cysts and bladder wall thickening. In the ED patient was afebrile, afib w/ RVR rates 150s, tachypneic to 25, BP 105/64. Labs significant for WBC 3.61, Hgb acute on chronic anemia to 6.5, thrombocytopenia to 73, hypokalemic to 3.4, hypomagnesemic to 1.6. She was given vanc and zosyn, 1L LR along w/ 1u prbc. Diltiazem was discontinued. Hospital medicine was consulted for sepsis, UTI and afib/ rvr. On exam, she states feeling well, had suprapubic abdominal pain and cystitis, she has been urinating fine. She was concerned about the fever. She has been eating and drinking less since being discharged from the hospital because everything tastes bad. Has not been taking her eliquis as directed by the surgeons. Does take metoprolol at home. She states feeling better now as compared to arrival. Currently lives in a home by herself and is able to perform ADLs. I reviewed prior records including her note prior to transfer which documented Hgb 7.1, UA negative, lactate 5.1 -> 2.7 Past Medical History Past Medical History[1] Surgical History Surgical History[2] Family History Family History[3] 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[4] Home Medications Current Outpatient Medications Medication Instructions acetaminophen (TYLENOL) 650 mg, Oral, Every 6 hours scheduled, Under [place] law, monthly prescriptions (30 days) can be refilled at 25 days and three-month prescriptions (90 days) at 80 days. Please contact the insurance company with questions if refills are denied. atorvastatin (LIPITOR) 40 mg, Every evening benzonatate (TESSALON) 100 mg, Oral, 3 times daily PRN, Do not crush or chew. Wragcld-Vvjgawgxfeq-Mzvqsifyxf (Breztri Aerosphere) 160-9-4.8 MCG/ACT aerosol 2 puffs, 2 times daily Calcium Carb-Cholecalciferol 600-10 MG-MCG tablet 1 tablet, Daily calcium carbonate (TUMS) 500 mg, 4 times daily PRN cetirizine (ZYRTEC) 10 mg, Daily cholestyramine light (PREVALITE) 4 g, 2 times daily with meals empagliflozin (JARDIANCE) 25 mg, Daily estradiol (ESTRACE) 2 g, Daily ferrous sulfate 325 mg, Daily with breakfast FLUoxetine (PROZAC) 40 mg, Daily gabapentin (NEURONTIN) 600 mg, Oral, 4 times daily glucose (TRUEPLUS GLUCOSE) 16 g, Oral, As needed hydrOXYzine HCl (ATARAX) 25 mg, 3 times daily PRN insulin glargine (LANTUS) 25 Units, Subcutaneous, Nightly insulin lispro (ADMELOG, HUMALOG) 15 Units, Subcutaneous, 3 times daily with meals lidocaine (Xylocaine) 5 % ointment Apply 2 times a day. magic butt balm (Cholestyramine) CMPD (Magic Butt) 1 Application, Topical, Every 1 hour PRN magic mouthwash BLM (FIRST-Mouthwash) suspension 15 mL, [...] head 2 times a day nitrofurantoin (macrocrystal-monohydrate) (MACROBID) 100 mg, Oral, 2 times daily NovoLOG FLEXPEN 100 UNIT/ML injection pen Inject under the skin 3 (three) times daily with meals per correction scale as follows: blood sugar 150-199 use 2 units, 200-249 use 4 units, 250-299 use 6 units, 300-349 use 8 units, 350-399 use 10 units, >399 12 units and call provider. nystatin (Mycostatin) 774605 UNIT/GM powder Apply on bottom 2 times a day ondansetron (ZOFRAN) 8 mg, Oral, 2 times daily, Take on Day 4 of cycle and then take PRN pantoprazole (PROTONIX) 40 mg, Daily pen needle, diabetic 31G X 5 MM misc Use as directed with insulin pen. Probiotic, Lactobacillus, capsule 1 capsule, Oral, Daily prochlorperazine (COMPAZINE) 10 mg, Oral, Every 6 hours PRN rOPINIRole (Requip) 1 MG tablet Take 1 tablet by mouth 2 times a day. SITagliptin (JANUVIA) 50 mg, Every morning triamterene-hydrochlorothiazide (Maxzide-25) 37.5-25 MG tablet Take 1 tablet by mouth every morning. Vitamin B-12 ER 1000 MCG tablet controlled-release 1 tablet, Daily Objective Blood pressure 94/51, pulse 88, temperature 37 ??C (98.6 ??F), resp. rate 20, weight 118 kg (260 lb2.3 oz), SpO2 97%. Physical Exam Constitutional: General: She is not in acute distress. Appearance: She is not toxic-appearing. Cardiovascular: Rate and Rhythm: Normal rate and regular rhythm. Pulmonary: Effort: Pulmonary effort is normal. Abdominal: General: There is no distension. Palpations: Abdomen is soft. Tenderness: There is abdominal tenderness (suprapubic). There is guarding (voluntary). Skin: General: Skin is warm. Coloration: Skin is pale. Skin is not jaundiced. Neurological: Mental Status: She is alert and oriented to person, place, and time. Psychiatric: Mood and Affect: Mood normal. Behavior: Behavior normal. Data Labs personally reviewed CBC WBC 3.61 (L) Hb 6.5 (L) Plt 73 (L) Hct 20.8 (L) ANC 1.99 INR ??, PTT ??, Anti-Xa ?? BMP Na 136 Cl 99 BUN 19 Glu 130 (H) K 3.4 (L) Co2 23 Cr 1.08 Ca 9.1 iCa ?? Mg 1.6 (L), Phos ?? Lactate ?? LFT AST 12 AlkPhos 99 T Prot 6.4 ALK 19 Bili 0.7 Alb ?? D.Bili ?? Imaging CT AP at OSH Circumferential thickening of the bladder concerning for acute cystitis. Correlate with urinalysis. No other acute abnormality visualized in the abdomen or pelvis. Chronic abnormalities as detailed in the findings of the report. Assessment/Plan Assessment/ Plan Principal Problem: Atrial fibrillation with rapid ventricular response (CMS/HCC) Teresa Urbina is a 63 y.o. female with PMH as per above who presents from OSH for urosepsis and afib w/ RVR. Placed on dilt drip at OSH, discontinued in ED. Rate of 80 on admission. Now s/p 1L of fluid and 1u pRBC ordered for hgb 6.5. Repeat UA w/ reflex culture as culture was not collected on 11/16, unlikely to result given patient has been on macrobid for three days. On Vanc/zosyn. This condition poses an acute threat to life/bodily function. #Afib w/ RVR - Hx of aflutter s/p CTI flutter ablation without recurrence but has developed afib - Last echo October 2023 EF 60% - S/p diltiazem drip in ED - Holding xarelto per NSGY for 2 weeks for recent SAH/SHD - Rate 70-80 on admission Plan: - Suspect non cdl driver of afib w/rvr symptomatic anemia vs UTI - Metoprolol tartrate 12.5mg BID - Hold AC #Sepsis likely 2/2 urinary tract infection - On 11/16 UA moderate leuks, nitrite positive, 21-50 WBC, bacteria present. Urine culture not collected and sent home with 9 days of macrobid - Febrile to 100.5 prior to presentation - S/p 1L fluid in ED - Lactate improved 5.1 -> 2.7 Plan: - Stop Vanc/Zosyn -> Resume macrobid - Repeat lactate - Repeat UA pending #Symptomatic anemia, pancytopenia 2/2 chemotherapy - Hgb 6.5 on admission, was 7.2 on discharge - S/p 1u pRBC in ED - S/P C2 Carbo/Etop/Atezo 11/09-11/10 w/pegilgrastim Plan: - 2U PRBCs given, ordered repeat HH - Repeat H&H at noon #Recent traumatic subdural and subarachnoid hemorrhage - Traumatic SDH/SAH adjacent to tumor bed (approx 7mm on 11/15 CT imaging) - Over-read CTH from OSH on transfer 11/18 with improved hemorrhage (approx 5mm) - Cont holding AC as above Chronic Medical Conditions: #T2DM - 10u basal + SSI #COPD - Home inhaler formulary alternative. On 2L at baseline. #Chronic pain - Home gabapentin #HLD - home statin #Obesity (BMI 40.74) Electronically Signed by: Aaron Bowens MD - 11/19/2024 - 4:14 AM [1] Past Medical History: Diagnosis Date Brain [...] SURGERY TUBAL LIGATION N/A Tubal Ligation from [facility] TYMPANOSTOMY TUBE PLACEMENT N/A Ear Surgery Eustachian Tube from [facility] [3] Family History Problem Relation Name Age [...] Topics Alcohol use: Never Drug use: Never Cosigned by Alin Ivey MD at 11/20/2024 3:34 PM EDT Associated attestation - Alin Ivey MD - 11/20/2024 3:34 PM EDT I saw and evaluated the patient. I discussed the case with the resident/fellow and agree with the findings and plan as documented. 63 yo F with hx of aflutter/fib, SCLC w/brain mets s/p crani (08/2024), receiving chemoradiation p/wafib w/RVR iso UTI and symptomatic anemia (secondary to chemo). Will transfuse, treat UTI and anticipate improvement in HR. D/W rads the SAH/SDH appears to be improving, continue to hold AC. * Care Plan - Darcie Anderson RN - 11/19/2024 12:35 AM EDT Problem: Adult Inpatient Plan of Care Goal: Absence of Hospital-Acquired Illness or Injury Outcome: Ongoing, Progressing Intervention: Identify and Manage Fall Risk Flowsheets (Taken 11/19/2024818) Safety Promotion/Fall Prevention: clutter-free environment maintained fall prevention program maintained nonskid shoes/slippers when out of bed safety round/check completed Intervention: Prevent Infection Flowsheets (Taken 11/19/2024818) Infection Prevention: environmental surveillance performed hand hygiene promoted Goal: Optimal Comfort and Wellbeing Outcome: Ongoing, Progressing Intervention: Provide Person-Centered Care Flowsheets (Taken 11/19/2024818) Trust Relationship/Rapport: care explained emotional support provided Problem: Dysrhythmia Goal: Normalized Cardiac Rhythm Outcome: Ongoing, Progressing Intervention: Monitor and Manage Cardiac Rhythm Effect Flowsheets (Taken 11/19/2024818) Stabilization Measures: airway opened * ED Provider Notes - Andrea Cummings DO - 11/19/2024 12:35 AM EDT - HPI Chief Complaint Patient presents with Rapid Heart Rate HPI The patient is a 63-year-old female with a past medical history relevant for metastatic small-cell lung cancer to brain status post craniotomy for metastatic resection on palliative chemo/radiation, AFib, COPD, recent subarachnoid/subdural presenting as a transfer to the emergency department due toconcerns for AFib with RVR. Patient states that she initially presented to outside hospital due to concerns for urinary tract infection, and was noted to be in AFib with RVR, was subsequently startedon diltiazem drip. On arrival, the patient's on the drip, with a rates in the 130. Patient states that she has had a sensation of increased suprapubic pain consistent with that of previous urinary tract infections, and is concern that she may be septic. Patient History Past Medical History[1] Surgical History[2] Family History[3] 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[4] Allergies: Allergies[5] Physical Exam ED Triage Vitals Temp Heart Rate Resp BP 11/19/242 11/19/242 11/19/244111/19/2441 37 ??C (98.6 ??F) (!) 150 25 105/64 SpO2 Temp Source Heart Rate Source Patient Position 11/19/241 11/19/242 11/19/244111/19/2441 100 % Oral Monitor Lying BP Location FiO2 (%) 11/19/2441 -- Left arm Physical Exam Vitals and nursing note reviewed. Constitutional: General: She is not in acute distress. Appearance: She is not toxic-appearing. HENT: Head: Normocephalic. Right Ear: External ear normal. Left Ear: External ear normal. Nose: Nose normal. Mouth/Throat: Pharynx: Oropharynx is clear. Eyes: Extraocular Movements: Extraocular movements intact. Conjunctiva/sclera: Conjunctivae normal. Cardiovascular: Rate and Rhythm: Tachycardia present. Rhythm irregular. Pulses: Normal pulses. Pulmonary: Effort: Pulmonary effort is normal. Breath sounds: Normal breath sounds. Abdominal: General: Abdomen is flat. Tenderness: There is abdominal tenderness. There is no right CVA tenderness or left CVA tenderness. Musculoskeletal: General: Normal range of motion. Cervical back: Normal range of motion. No tenderness. Skin: General: Skin is warm. Capillary Refill: Capillary refill takes less than 2 seconds. Neurological: Mental Status: She is alert and oriented to person, place, and time. Ellis Coma Scale Score: 15 ED Course & MDM - Assessment: 63 y.o. female presents to ED with complaint of AFib with RVR. It should be noted that the chronic conditions includes as documented above, which currently is not at goal therapy. This complicates the clinical picture because it Comorbidities: may be exacerbating symptoms, increases the amount and complexity of data to be reviewed, complicates the clinical workup, and increases the risk for morbidity Differential Diagnosis: Sepsis, urinary tract infection, atrial fibrillation, complication of previous fall, anemia, electrolyte abnormality, among others. In order to fully explore the differential diagnosis the following treatments and tests were ordered: ED Medication Administration from 11/18/2024 7638 to 11/19/2024 0343 Date/Time Order Dose Route Action 11/19/2024 0055 EDT dilTIAZem (Cardizem) 125 mg in sodium chloride 0.9 % 125 mL (1 mg/mL) infusion -- Intravenous Canceled Entry 11/19/2024 0114 EDT lactated Ringer's infusion 1,000 mL 1,000 mL Intravenous New Bag 11/19/2024 0213 EDT vancomycin (Vancocin) 2,250 mg in sodium chloride 0.9 % 500 mL 2,250 mg Intravenous Given 11/19/2024 0335 EDT lactated Ringer's infusion 1,000 mL 0 mL Intravenous Stopped All Other Orders Ordered Status Ordering Provider 11/19/24 034 Vital Signs Every 4 hours Placed in And Linked Group AARON Villalta 11/19/24 034 Pulse Oximetry Every 4 hours Placed in And Linked Group AARON Villalta 11/19/24 034 Sequential compression device Until discontinued Comments: SCDs must be in place and turned on EXCEPT when ACTIVELY ambulating. AARON Villalta 11/19/24 034 Okay To Give Nicotine Replacement Until discontinued Acknowledged AARON BOWENS 11/19/24 034 Full code Continuous AARON Villalta 11/19/24 034 Adult diet Diet texture: Regular Diet effective now Acknowledged AARON BOWENS 11/19/24 034 Mobility Orders Until discontinued AARON Villalta 11/19/24 034 Notify physician (specify parameters) Until discontinued AARON Villalta 11/19/24 034 Insert peripheral IV Once Placed in And Linked Group AARON Villalta 11/19/24 034 Saline lock IV Once Placed in And Linked Group AARON Villalta 11/19/24 0343 Admit to inpatient Once Acknowledged AARON BOWENS 11/19/24 033 Vital signs for transfusion Until discontinued Comments: Check vital signs immediately prior to transfusion, 15 minutes into transfusion, every hour and after completion of transfusion. Acknowledged AARON BOWENS 11/19/24 033 Prepare Leukocyte Reduced RBC: 1 Units Blood - Once Placed in And Linked Group Final result ANDREA CUMMINGS 11/19/24 033 Transfuse RBC Transfusion Placed in And Linked Group Preliminary result AARON BOWENS 11/19/24 0223 Consult to Hospital Medicine Once Specialty: Internal Medicine Provider: (Not yet assigned) Aj AARON BOWENS 11/19/24130 Initiate contact isolation Continuous Comments: Added via Instant Order OPA Acknowledged MOSHE INSTANT ORDERS 11/19/24130 Vital signs for transfusion Until discontinued Comments: Check vital signs immediately prior to transfusion, 15 minutes into transfusion, every hour and after completion of transfusion. Acknowledged AARON BOWENS 11/19/24130 Type and screen Once Final result ANDREA CUMMINGS 11/19/24 013 Blood - Once Placed in And Linked Group Canceled ANDREA CUMMINGS 11/19/24130 Transfusion Placed in And Linked Group Canceled ANDREA CUMMINGS 11/19/24 0050 CBC w/diff STAT Final result ZOILAANDREA LAMB 11/19/24 0050 CMP STAT Final result ANDREA CUMMINGS 11/19/24 005 Magnesium STAT Final result ANDREA CUMMINGS 11/19/24 005 Anti Xa Level Unfractionated Heparin STAT Final result ZOILA, ANDREA Kramer 11/19/24 005 Urinalysis with reflex microscopic AND reflex culture (IF UTI SUSPECTED) STAT Preliminary result ANDREA CUMMINGS 11/19/24 005 Urinalysis with reflex microscopic (Culture NOT Included) PROCEDURE ONCE Final result ANDREA CUMMINGS 11/19/24 005 Urine Meek Panel PROCEDURE ONCE Preliminary result ANDREA CUMMINGS 11/19/24 004 POCT glucose meter PROCEDURE ONCE Final result POCT, ANGELI KOENIG 11/19/24 004 ECG Adult Once Preliminary result JOSE DAVID TOPETE Social Determinates of Health Risks (including Economic Stability, Education and level of understanding, Healthcare access and quality and concerning social factors): None identified on this visit On initial evaluation by this physician, the patient was located in an EMS stretcher. Patient is amanda diltiazem drip, and heart rate is noted to be in the 130s and irregular on EMS monitor. The patient is transitioned over the hospitalist stretcher, where she is alert and oriented interactive with e xamination. Patient states that she believes that she has a urinary tract infection, and states that she has previously gotten septic. Patient states that her last chemo treatment was last week. Patient is noted to be borderline hypotensive, raising the concerns for sepsis at this time. Medical record review from outside hospital was reviewed, were blood cultures were obtained as well as CT imaging was performed. Repeat laboratory evaluation was performed at this facility, the patient is noted to have a hemoglobin of 6.5, she has consented and blood is ordered. Patient is provided with a L ofLR, and heart rate improves. Due to concerns for sepsis, antibiotics were started, and hospital Medicine was consulted for admission. Upon their evaluation they admitted the patient their service forfurther medical management optimization. Ultimately, this patient was Was admitted (Admission) There were no encounter diagnoses.. Patient believed to require admission for the listed diagnoses. The Internal Medicine service was consulted for admission and was agreeable to admit toAcute Floor (Med/Surg). ED Prescriptions None Disposition Admit Admitting/Attending Physician: ALIN IVEY [[id number]] Provider Care Team: LEONA YU 4 [187] Are they the primary team?: Yes [1] - [1] Past Medical History: Diagnosis Date [...] SURGERY TUBAL LIGATION N/A Tubal Ligation from [facility] TYMPANOSTOMY TUBE PLACEMENT N/A Ear Surgery Eustachian Tube from [facility] [3] Family History Problem Relation Name Age [...] use: Never [5] Allergies Allergen Reactions Cephalexin Nausea and Vomiting Lisinopril Cough Meloxicam Unknown - Patient states they do not know rxn details Andrea Cummings DO Resident 11/19/24 0511 Cosigned by Jose David Topete MD at 11/21/2024 4:00 AM EDT Associated attestation - Jose David Topete MD - 11/21/2024 4:00 AM EDT I saw and evaluated the patient with the resident/fellow. I discussed the case with the resident/fellow and agree with the findings and plan as documented. * ED Triage Notes - Lashanda Stearns RN - 11/19/2024 12:35 AM EDT Pt sent from OSH due to suspected afib RVR. Pt was placed on a dilt drip. Pt had a fall last week and found to have a subdural GCS 14 on arrival Pt also has suspected UTI documented in this encounter Plan of Treatment Upcoming Encounters Date Type Department Care Team (Late st Contact Info) Description 11/29/2024 10:30 AM EDT Clinical Support [facility] [address] [facility]nd [place] [phone] 11/29/2024 11:00 AM EDT Office Visit [facility] [address] [facility]nd [place] [phone] Satnam Colvin MD [address] [facility] [address] [place] [address] 11/29/2024 12:30 PM EDT Appointment [facility] [address] [place] [phone] 11/30/2024 1:30 PM EDT Appointment [facility] [address] [place] [address] 12/01/2024 2:00 PM EDT Appointment [facility] [address] [place] [address] 12/06/2024 11:40 AM EDT Appointment [facility] Radiation [address] [facility] [place] [address] Haven Blum, SHARDA [address] [facility] [address] [place] [phone] 01/19/2025 9:30 AM EDT Appointment [facility] S Radiology [address], [address] [place] [address] 01/19/2025 10:45 AM EDT Office Visit [facility] [address], [address] [place] [address] Abhilash Bangura MD [address] [place] [address] 03/08/2025 1:00 PM EDT Office Visit [facility] Elgin Wenceslao [address] [place] [phone] Teresita Oconnell MD [address] [place] [address] Scheduled Referrals Name Type Priority Associated Diagnoses Order Schedule Ambulatory referral to External PCP Outpatient Referral Routine Type 2 diabetes mellitus with diabetic neuropathy, unspecified whether intermediate card tender insulin use ([facility]) 1 Occurrences starting 11/22/2024 until 05/26/2026 documented as of this encounter Procedures Procedure Name Priority Date/Time Associated Diagnosis Comments POCT GLUCOSE METER UNSOLICITED RESULTS Routine 11/22/2024 11:50 AM EDT TYPE AND SCREEN Routine 11/22/2024 11:30 AM EDT PREPARE RBC Routine 11/22/2024 10:58 AM EDT POCT GLUCOSE METER UNSOLICITED RESULTS Routine 11/22/2024 7:28 AM EDT CBC W/O DIFFERENTIAL Routine 11/22/2024 2:44 AM EDT BASIC METABOLIC PANEL, PLASMA Routine 11/22/2024 2:44 AM EDT POCT GLUCOSE METER UNSOLICITED RESULTS Routine 11/21/2024 7:48 PM EDT POCT GLUCOSE METER UNSOLICITED RESULTS Routine 11/21/2024 5:04 PM EDT POCT GLUCOSE METER UNSOLICITED RESULTS Routine 11/21/2024 11:51 AM EDT POCT GLUCOSE METER UNSOLICITED RESULTS Routine 11/21/2024 7:56 AM EDT CBC W/O DIFFERENTIAL Routine 11/21/2024 12:47 AM EDT BASIC METABOLIC PANEL, PLASMA Routine 11/21/2024 12:47 AM EDT POCT GLUCOSE METER UNSOLICITED RESULTS Routine 11/20/2024 8:22 PM EDT POCT GLUCOSE METER UNSOLICITED RESULTS Routine 11/20/2024 4:58 PM EDT POCT GLUCOSE METER UNSOLICITED RESULTS Routine 11/20/2024 12:19 PM EDT POCT GLUCOSE METER UNSOLICITED RESULTS Routine 11/20/2024 8:01 AM EDT ECG ADULT Routine 11/20/2024 7:20 AM EDT HEMOGLOBIN AND HEMATOCRIT, BLOOD Timed 11/20/2024 12:57 AM EDT CBC WITH AUTO DIFFERENTIAL Routine 11/20/2024 12:57 AM EDT PHOSPHORUS, PLASMA Routine 11/20/2024 12 :57 AM EDT MAGNESIUM, PLASMA Routine 11/20/2024 12: 57 AM EDT BASIC METABOLIC PANEL, PLASMA Routine 11/20/2024 12:57 AM EDT POCT GLUCOSE METER UNSOLICITED RESULTS Routine 11/19/2024 9:42 PM EDT WILBUR AURIS SURVEILLANCE BY PCR Routine 11/19/2024 7:58 PM EDT POCT GLUCOSE METER UNSOLICITED RESULTS Routine 11/19/2024 4:35 PM EDT HEMOGLOBIN AND HEMATOCRIT, BLOOD Routine 11/19/2024 4:18 PM EDT TRANSFUSE RED BLOOD CELLS Routine 11/19/2024 2:47 PM EDT POCT GLUCOSE METER UNSOLICITED RESULTS Routine 11/19/2024 2:27 PM EDT TRANSFUSE RED BLOOD CELLS Routine 11/19/2024 12:20 PM EDT PREPARE RBC Routine 11/19/2024 11:58 AM EDT HEMOGLOBIN AND HEMATOCRIT, BLOOD Routine 11/19/2024 11:44 AM EDT POCT GLUCOSE METER UNSOLICITED RESULTS Routine 11/19/2024 11:40 AM EDT ECG ADULT Routine 11/19/2024 8:09 AM EDT POCT GLUCOSE METER UNSOLICITED RESULTS Routine 11/19/2024 7:42 AM EDT POCT GLUCOSE METER UNSOLICITED RESULTS Routine 11/19/2024 6:11 AM EDT POCT GLUCOSE METER UNSOLICITED RESULTS Routine 11/19/2024 4:05 AM EDT TRANSFUSE RED BLOOD CELLS Routine 11/19/2024 4:03 AM EDT LACTATE, VENOUS Routine 11/19/2024 3:59 AM EDT PREPARE RBC Routine 11/19/2024 3:38 AM EDT URINALYSIS WITH REFLEX MICROSCOPIC AND CULTURE STAT 11/19/2024 3:37 AM EDT URINE MEEK PANEL STAT 11/19/2024 3:37 AM EDT URINALYSIS WITH REFLEX MICROSCOPIC STAT 11/19/2024 3:37 AM EDT TYPE AND SCREEN STAT 11/19/2024 1:33 AM EDT IRON & TOTAL IRON BINDING CAPACITY, PLASMA (INCLUDES TRANSFERRIN) Add-On 11/19/2024 12:51 AM EDT ANTI XA LEVEL UNFRACTIONATED HEPARIN STAT 11/19/2024 12:51 AM EDT CBC WITH AUTO DIFFERENTIAL STAT 11/19/2024 12:51 AM EDT MAGNESIUM, PLASMA STAT 11/19/2024 12: 51 AM EDT COMPREHENSIVE METABOLIC PANEL, PLASMA STAT 11/19/2024 12:51 AM EDT POCT GLUCOSE METER UNSOLICITED RESULTS Routine 11/19/2024 12:43 AM EDT ECG ADULT Routine 11/19/2024 12:42 AM EDT documented in this encounter Results * Transfuse RBC, Irradiated (11/22/2024 4:22 PM EDT) us Alin Ivey MD BLOOD TRANSFUSION ORDERABLES Fi nal Result * (ABNORMAL) POCT glucose meter (11/22/2024 11:50 AM EDT) POCT Glucose 178(H) 74 - 99 mg/dL 11/22/2024 11:52 AM EDT [facility] Comment:Accuracy of [...] to the main labortory for testing. Comment 11/22/2024 11:52 AM EDT [facility] Global Clinical Leader ID Lisa Veliz 11/22/2024 11:52 AM EDT [facility]ALTH[facility]ARE LAB Device ID [id number] 11/22/2024 11:52 AM EDT [facility] Specimen Type POC Capillary 11/22/2024 11:52 AM EDT [facility] Blood Capillary blood specimen / Unknown 11/22/2024 11:50 AM EDT 11/22/2024 11:52 AM EDT us Alin Ivey MD LAB POINT OF CARE TE ST DOCKED DEVICE UNSOLICITED RESULTS Final Result Performing Organization Address City/State/[facility] Co de Phone Number HEALTHCARE LAB [address] [place] [address] * Type and screen (11/22/2024 11:30 AM EDT) ABO/Rh O Positive 11/22/2024 10:58 AM EDT BLOOD BANK Antibody Screen Negative 11/22/2024 10:58 AM EDT BLOOD BANK Specimen Expiration 11/25/2024 23:59 11/22/2024 10:58 AM EDT BLOOD BANK Blood Venous blood specimen / Unknown Venipuncture / Unknown 11/22/2024 11:30 AM EDT 11/22/2024 11:36 AM EDT us Alin Ivey MD LAB BLOOD BANK TEST ORDERABLES Final Result Performing Organization Address City/[facility]/ZIP Co de Phone Number BLOOD BANK [address] [place] [address], * Prepare Leukocyte Reduced RBC: 1 Units, Irradiated, Leukocyte reduced (CMV reduced risk) (11/22/2024 10:58 AM EDT) Pathologist [facility] Product Code [id number] CH BLOO D BANK Dispense Status Transfused BLOOD BANK Blood Expiration Date [id number] BLOOD BANK Unit Number [id number] CH B LOOD BANK Product Blood Type 5100 BLOOD BANK Blood Type O+ BLOOD BANK Crossmatch Compatible BLOOD BANK Other us Alin Ivey MD BLOOD BANK PRODUCT ORDERABLES F inal Result Performing Organization Address [facility] Co de Phone Number BLOOD BANK [address] [place] [address], * (ABNORMAL) POCT glucose meter (11/22/2024 7:28 AM EDT) Pathologist [facility] POCT Glucose 199(H) 74 - 99 mg/dL 11/22/2024 7:30 AM EDT [facility] Comment:Accuracy of [...] to the main labortory for testing. Comment 11/22/2024 7:30 AM EDT [facility] Global Clinical Leader ID Lisa Veliz 11/22/2024 7:30 AM EDT [facility] Device ID [id number] 11/22/2024 7:30 AM EDT [facility] Specimen Type POC Capillary 11/22/2024 7:30 AM EDT [facility]ALTH[facility]ARE [facility] Blood Capillary blood specimen / Unknown 11/22/2024 7:28 AM EDT 11/22/2024 7:30 AM EDT us Alin Ivey MD LAB POINT OF CARE TE ST DOCKED DEVICE UNSOLICITED RESULTS Final Result [facility] [address] [place] [address] * (ABNORMAL) Basic metabolic panel (11/22/2024 2:44 AM EDT) Glucose, Plasma 210(H) 74 - 99 mg/dL 11/22/2024 3:19 AM EDT [facility] BUN, Plasma 6(L) 8 - 23 mg/dL 11/22/2024 3:19 AM EDT [facility] Creatinine, Plasma 0.61 0.60 - 1.10 mg/dL 11/22/2024 3:19 AM EDT [facility] BUN/Creatinine Ratio 10 11/22/2024 3:19 AM EDT [facility] Sodium, Plasma 141 136 - 145 mmol/L 11/22/2024 3:19 AM EDT [facility] Potassium, Plasma 3.5(L) 3.6 - 4.9 mmol/L 11/22/2024 3:19 AM EDT [facility] Chloride, Plasma 104 97 - 107 mmol/L 11/22/2024 3:19 AM EDT [facility] CO2, Plasma 24 22 - 29 mmol/L 11/22/2024 3:19 AM EDT [facility] Anion Gap 13 6 - 16 mmol/L 11/22/2024 3:19 AM EDT [facility] Total Calcium, Plasma 8.0(L) 8.9 - 10.2 mg/dL 11/22/2024 3:19 AM EDT [facility] eGFRcr 100.6 mL/min/1.7 3m*2 11/22/2024 3:19 AM EDT [facility] Comment:Reported eGFRcr in m L/min/1.73m2 is based the CKD-EPI 2020 equation that does not use a race coefficient. Blood Venous blood specimen / Unknown Venipuncture / Unknown 11/22/2024 2:44 AM EDT 11/22/2024 2:49 AM EDT Alin Ivey MD LAB BLOOD ORDERABLES Final Resu lt [facility] [address] [place] [address] * (ABNORMAL) CBC W/O Differential (11/22/2024 2:44 AM EDT) WBC Count 6.07 3.70 - 10.30 10*3/uL LAB HEMATOLOGY METHOD 11/22/2024 3:04 AM EDT [facility] RBC Count 2.45(L) 3.90 - 5.20 10*6/uL LAB HEMATOLOGY METHOD 11/22/2024 3:04 AM EDT [facility] HGB 7.3(L) 11.2 - 15.7 g/dL LAB HEMATOLOGY METHOD 11/22/2024 3:04 AM EDT [facility] HCT 23.3(L) 34.0 - 45.0 % LAB HEMATOLOGY METHOD 11/22/2024 3:04 AM EDT [facility] Platelet Count 32(L) 155 - 369 10*3/uL LAB HEMATOLOGY METHOD 11/22/2024 3:04 AM EDT [facility] MCV 95 79 - 98 fL LAB HEMATOLOGY METHOD 11/22/2024 3:04 AM EDT [facility] MCH 29.8 26.0 - 32.0 pg LAB HEMATOLOGY METHOD 11/22/2024 3:04 AM EDT [facility] MCHC 31.3 30.7 - 35.5 g/dL LAB HEMATOLOGY METHOD 11/22/2024 3:04 AM EDT [facility] RDW 20.4(H) 11.5 - 14.5 % LAB HEMATOLOGY METHOD 11/22/2024 3:04 AM EDT [facility] MPV 11.6 8.8 - 12.5 fL LAB HEMATOLOGY METHOD 11/22/2024 3:04 AM EDT [facility] nRBC 0.7(H) <=0.0 per 100 WBCs LAB HEMATOLOGY METHOD 11/22/2024 3:04 AM EDT [facility] Blood Venous blood specimen / Unknown Venipuncture / Unknown 11/22/2024 2:44 AM EDT 11/22/2024 2:50 AM EDT us Alin Ivey MD LAB BLOOD ORDERABLES Final Resu lt [facility] [address] [place] [address] * (ABNORMAL) POCT glucose meter (11/21/2024 7:48 PM EDT) POCT Glucose 191(H) 74 - 99 mg/dL 11/21/2024 7:50 PM EDT [facility] Comment:Accuracy of [...] to the main labortory for testing. Comment 11/21/2024 7:50 PM EDT [facility]ALTHCARE LAB Global Clinical Leader ID Carlos Nolasco 7:50 PM EDT HEALTHCARE LAB Device ID [id number] 11/21/2024 7:50 PM EDT [facility] Specimen Type POC Capillary 11/21/2024 7:50 PM EDT [facility] Blood Capillary blood specimen / Unknown 11/21/2024 7:48 PM EDT 11/21/2024 7:50 PM EDT us Alin Ivey MD LAB POINT OF CARE TE ST DOCKED DEVICE UNSOLICITED RESULTS Final Result Performing Organization Address City/[facility]/ZIP Co de Phone Number [facility] [address] [place] [address] * (ABNORMAL) POCT glucose meter (11/21/2024 5:04 PM EDT) POCT Glucose 209(H) 74 - 99 mg/dL 11/21/2024 5:05 PM EDT [facility] Comment:Accuracy of [...] to the main labortory for testing. Comment 11/21/2024 5:05 PM EDT [facility] Global Clinical Leader ID Holley Schultz 025 5:05 PM EDT [facility]ARE LAB Device ID [id number] 11/21/2024 5:05 PM EDT [facility] Specimen Type POC Capillary 11/21/2024 5:05 PM EDT [facility] Blood Capillary blood specimen / Unknown 11/21/2024 5:04 PM EDT 11/21/2024 5:05 PM EDT Alin Ivey MD LAB POINT OF CARE TE ST DOCKED DEVICE UNSOLICITED RESULTS Final Result Performing Organization Address City/[facility] Co de Phone Number [facility] [address] [place] [address] * (ABNORMAL) POCT glucose meter (11/21/2024 11:51 AM EDT) POCT Glucose 243(H) 74 - 99 mg/dL 11/21/2024 11:52 AM EDT [facility] Comment:Accuracy of [...] to the main labortory for testing. Comment 11/21/2024 11:52 AM EDT [facility]ARE [facility] Global Clinical Leader ID Holley Schultz 025 11:52 AM EDT HEALTHCARE LAB Device ID [id number] 11/21/2024 11:52 AM EDT [facility] Specimen Type POC Capillary 11/21/2024 11:52 AM EDT [facility] Blood Capillary blood specimen / Unknown 11/21/2024 11:51 AM EDT 11/21/2024 11:52 AM EDT us Alin Ivey MD LAB POINT OF CARE TE ST DOCKED DEVICE UNSOLICITED RESULTS Final Result Performing Organization Address City/[facility]/ZIP Co de Phone Number [facility] [address] [place] [address] * (ABNORMAL) POCT glucose meter (11/21/2024 7:56 AM EDT) POCT Glucose 218(H) 74 - 99 mg/dL 11/21/2024 7:57 AM EDT [facility] Comment:Accuracy of a glucos e result obtained from a capillary whole blood specimen relies upon adequate, non-compromised capillary blood flow. If the capillary glucose result is not consistent with the patient's clinical signs and symptoms, glucose testing should be repeated with either an arterial or venous sample on the glucometer or sent to the main labortory for testing. Comment 11/21/2024 7:57 AM EDT [facility]ARE [facility] Global Clinical Leader ID Holley Schultz 025 7:57 AM EDT HEALTHCARE LAB Device ID [id number] 11/21/2024 7:57 AM EDT [facility]ALTH[facility]ARE LAB Specimen Type POC Capillary 11/21/2024 7:57 AM EDT [facility] Blood Capillary blood specimen / Unknown 11/21/2024 7:56 AM EDT 11/21/2024 7:57 AM EDT us Alin Ivey MD LAB POINT OF CARE TE ST DOCKED DEVICE UNSOLICITED RESULTS Final Result Performing Organization Address City/State/[facility] Co de Phone Number HEALTHCARE LAB [address] [place] [address] * (ABNORMAL) Basic Metabolic Panel, Plasma (11/21/2024 12:47 AM EDT) Glucose, Plasma 195(H) 74 - 99 mg/dL 11/21/2024 2:26 AM EDT [facility] BUN, Plasma 7(L) 8 - 23 mg/dL 11/21/2024 2:26 AM EDT [facility] Creatinine, Plasma 0.74 0.60 - 1.10 mg/dL 11/21/2024 2:26 AM EDT [facility] BUN/Creatinine Ratio 9 11/21/2024 2:26 AM EDT [facility] Sodium, Plasma 140 136 - 145 mmol/L 11/21/2024 2:26 AM EDT [facility] Potassium, Plasma 3.4(L) 3.6 - 4.9 mmol/L 11/21/2024 2:26 AM EDT [facility] Chloride, Plasma 102 97 - 107 mmol/L 11/21/2024 2:26 AM EDT [facility] CO2, Plasma 25 22 - 29 mmol/L 11/21/2024 2:26 AM EDT [facility] Anion Gap 13 6 - 16 mmol/L 11/21/2024 2:26 AM EDT [facility] Total Calcium, Plasma 8.1(L) 8.9 - 10.2 mg/dL 11/21/2024 2:26 AM EDT [facility] eGFRcr 91.0 mL/min/1.7 3m*2 11/21/2024 2:26 AM EDT [facility] Comment:Reported eGFRcr in m L/min/1.73m2 is based the CKD-EPI 2020 equation that does not use a race coefficient. Blood Venous blood specimen / Unknown Venipuncture / Unknown 11/21/2024 12:47 AM EDT 11/21/2024 1:43 AM EDT us Alin Ivey MD LAB BLOOD ORDERABLES Final Resu lt [facility] [address] [place] [address] * (ABNORMAL) CBC W/O Differential (11/21/2024 12:47 AM EDT) WBC Count 7.16 3.70 - 10.30 10*3/uL LAB HEMATOLOGY METHOD 11/21/2024 1:45 AM EDT [facility] RBC Count 2.52(L) 3.90 - 5.20 10*6/uL LAB HEMATOLOGY METHOD 11/21/2024 1:45 AM EDT [facility] HGB 7.5(L) 11.2 - 15.7 g/dL LAB HEMATOLOGY METHOD 11/21/2024 1:45 AM EDT [facility] HCT 23.5(L) 34.0 - 45.0 % LAB HEMATOLOGY METHOD 11/21/2024 1:45 AM EDT [facility] Platelet Count 37(L) 155 - 369 10*3/uL LAB HEMATOLOGY METHOD 11/21/2024 1:45 AM EDT [facility] MCV 93 79 - 98 fL LAB HEMATOLOGY METHOD 11/21/2024 1:45 AM EDT [facility] MCH 29.8 26.0 - 32.0 pg LAB HEMATOLOGY METHOD 11/21/2024 1:45 AM EDT [facility] MCHC 31.9 30.7 - 35.5 g/dL LAB HEMATOLOGY METHOD 11/21/2024 1:45 AM EDT [facility] RDW 20.9(H) 11.5 - 14.5 % LAB HEMATOLOGY METHOD 11/21/2024 1:45 AM EDT [facility] MPV 11.0 8.8 - 12.5 fL LAB HEMATOLOGY METHOD 11/21/2024 1:45 AM EDT [facility] nRBC 0.8(H) <=0.0 per 100 WBCs LAB HEMATOLOGY METHOD 11/21/2024 1:45 AM EDT [facility] Blood Venous blood specimen / Unknown Venipuncture / Unknown 11/21/2024 12:47 AM EDT 11/21/2024 1:36 AM EDT us Alin Ivey MD LAB BLOOD ORDERABLES Final Resu lt [facility] [address] [place] [address] * (ABNORMAL) POCT glucose meter (11/20/2024 8:22 PM EDT) POCT Glucose 241(H) 74 - 99 mg/dL 11/20/2024 8:24 PM EDT [facility] Comment:Accuracy of a glucos e result obtained from a capillary whole blood specimen relies upon adequate, non-compromised capillary blood flow. If the capillary glucose result is not consistent with the patient's clinical signs and symptoms, glucose testing should be repeated with either an arterial or venous sample on the glucometer or sent to the main labortory for testing. Comment 11/20/2024 8:24 PM EDT [facility] Global Clinical Leader ID Teo Johnsonzo 11/20/2024 8:24 PM EDT HEALTH[facility]ARE LAB Device ID [id number] 11/20/2024 8:24 PM EDT [facility] Specimen Type POC Capillary 11/20/2024 8:24 PM EDT [facility] Blood Capillary blood specimen / Unknown 11/20/2024 8:22 PM EDT 11/20/2024 8:24 PM EDT Alin Ivey MD LAB POINT OF CARE TE ST DOCKED DEVICE UNSOLICITED RESULTS Final Result Performing Organization Address City/[facility]/ZIP Co de Phone Number [facility]ARE [facility] [address] [place] [address] * (ABNORMAL) POCT glucose meter (11/20/2024 4:58 PM EDT) POCT Glucose 226(H) 74 - 99 mg/dL 11/20/2024 5:00 PM EDT [facility] Comment:Accuracy of [...] to the main labortory for testing. Comment 11/20/2024 5:00 PM EDT [facility] Global Clinical Leader ID Holley Schultz 025 5:00 PM EDT [facility]ALTH[facility]ARE LAB Device ID [id number] 11/20/2024 5:00 PM EDT [facility] Specimen Type POC Capillary 11/20/2024 5:00 PM EDT [facility] Blood Capillary blood specimen / Unknown 11/20/2024 4:58 PM EDT 11/20/2024 5:00 PM EDT us Alin Ivey MD LAB POINT OF CARE TE ST DOCKED DEVICE UNSOLICITED RESULTS Final Result Performing Organization Address City/[facility]/ZIP Co de Phone Number [facility] [address] [place] [address] * (ABNORMAL) POCT glucose meter (11/20/2024 12:19 PM EDT) POCT Glucose 256(H) 74 - 99 mg/dL 11/20/2024 12:20 PM EDT [facility] Comment:Accuracy of [...] to the main labortory for testing. Comment 11/20/2024 12:20 PM EDT [facility] Global Clinical Leader ID Holley Schultz 025 12:20 PM EDT HEALTHCARE LAB Device ID [id number] 11/20/2024 12:20 PM EDT [facility] Specimen Type POC Capillary 11/20/2024 12:20 PM EDT [facility] Blood Capillary blood specimen / Unknown 11/20/2024 12:19 PM EDT 11/20/2024 12:20 PM EDT Alin Ivey MD LAB POINT OF CARE TE ST DOCKED DEVICE UNSOLICITED RESULTS Final Result Performing Organization Address City/State/[facility] Co de Phone Number [facility] [address] [place] [address] * (ABNORMAL) POCT glucose meter (11/20/2024 8:01 AM EDT) [facility] POCT Glucose 218(H) 74 - 99 mg/dL 11/20/2024 8:03 AM EDT [facility] Comment:Accuracy [...] to the main labortory for testing. Comment 11/20/2024 8:03 AM [facility] Global Clinical Leader ID Holley Schultz 025 8:03 AM [facility] Device ID [id number] 11/20/2024 8:03 AM [facility] Specimen Type POC Capillary 11/20/2024 8:03 AM [facility] Blood Capillary blood specimen / Unknown 11/20/2024 8:01 AM EDT 11/20/2024 8:03 AM EDT Alin Ivey MD LAB POINT OF CARE TE ST DOCKED DEVICE UNSOLICITED RESULTS Final Result Performing Organization Address City/[facility]/ZIP Co de Phone Number [facility] [address] [place] [address] * ECG Adult (11/20/2024 7:20 AM EDT) EKG DIAGNOSIS CLASS Abnormal MUSE ECG Ventricular Rate 148 BPM MUSE ECG Atrial Rate 340 BPM MUSE ECG QRSD Interval 90 ms MUSE ECG QT Interval 298 ms MUSE ECG QTC Interval 467 ms MUSE ECG P [place] 110 degrees MUSE ECG R [place] 16 degrees MUSE ECG T Wave [place] 82 degrees MUSE ECG Diagnosis Atrial flutter with variable AV block MUSE ECG Diagnosis Nonspecific ST and T wave abnormality MUSE ECG Diagnosis Abnormal ECG MUSE ECG Diagnosis Compared to last ECG MUSE ECG Diagnosis atrial flutter has replaced sinus rhythm MUSE ECG Diagnosis MUSE ECG Diagnosis Confirmed by Leeroy Herbert ([id number]) on 11/20/2024 12:49:05 PM MUSE ECG 11/20/2024 7:20 AM EDT 11/20/2024 12:49 PM EDT Alin Ivey MD ECG ORDERABLES Final Result Performing Organization Address [facility] Co de Phone Number MUSE ECG * (ABNORMAL) Hemoglobin and Hematocrit, Blood (11/20/2024 12:57 AM EDT) HGB 7.9(L) 11.2 - 15.7 g/dL LAB HEMATOLOGY METHOD 11/20/2024 1:18 AM EDT [facility] HCT 24.8(L) 34.0 - 45.0 % LAB HEMATOLOGY METHOD 11/20/2024 1:18 AM EDT [facility] Blood Venous blood specimen / Unknown Venipuncture / Unknown 11/20/2024 12:57 AM EDT 11/20/2024 1:10 AM EDT Alin Ivey MD LAB BLOOD ORDERABLES Final Resu lt [facility] [address] [place] [address] * (ABNORMAL) CBC and Differential (11/20/2024 12:57 AM EDT) WBC Count 5.47 3.70 - 10.30 10*3/uL LAB HEMATOLOGY METHOD 11/20/2024 2:38 AM EDT [facility] RBC Count 2.71(L) 3.90 - 5.20 10*6/uL LAB HEMATOLOGY METHOD 11/20/2024 2:38 AM EDT [facility] HGB 7.9(L) 11.2 - 15.7 g/dL LAB HEMATOLOGY METHOD 11/20/2024 2:38 AM EDT [facility] HCT 24.8(L) 34.0 - 45.0 % LAB HEMATOLOGY METHOD 11/20/2024 2:38 AM EDT [facility] Platelet Count 44(L) 155 - 369 10*3/uL LAB HEMATOLOGY METHOD 11/20/2024 2:38 AM EDT [facility] MCV 92 79 - 98 fL LAB HEMATOLOGY METHOD 11/20/2024 2:38 AM EDT [facility] Comment:Results inconsistent with previous lab findings. MCH 29.2 26.0 - 32.0 pg LAB HEMATOLOGY METHOD 11/20/2024 2:38 AM EDT [facility] MCHC 31.9 30.7 - 35.5 g/dL LAB HEMATOLOGY METHOD 11/20/2024 2:38 AM EDT [facility] RDW 20.9(H) 11.5 - 14.5 % LAB HEMATOLOGY METHOD 11/20/2024 2:38 AM EDT [facility] MPV 10.3 8.8 - 12.5 fL LAB HEMATOLOGY METHOD 11/20/2024 2:38 AM EDT [facility] nRBC 1.3(H) <=0.0 per 100 WBCs LAB HEMATOLOGY METHOD 11/20/2024 2:38 AM EDT [facility] Differential Type Automated LAB HEMATOLOGY METHOD 11/20/2024 2:38 AM EDT [facility] Neutrophils % 70 % LAB HEMATOLOGY METHOD 11/20/2024 2:38 AM EDT [facility] Lymphocytes % 14 % LAB HEMATOLOGY METHOD 11/20/2024 2:38 AM EDT [facility] Monocytes % 7 % LAB HEMATOLOGY METHOD 11/20/2024 2:38 AM EDT [facility] Eosinophils % 3 % LAB HEMATOLOGY METHOD 11/20/2024 2:38 AM EDT [facility] Basophils % 1 % LAB HEMATOLOGY METHOD 11/20/2024 2:38 AM EDT [facility] Immature Granulocytes % 5 % LAB HEMATOLOGY METHOD 11/20/2024 2:38 AM EDT [facility] Neutrophils Absolute 3.82 1.60 - 6.10 10*3/uL LAB HEMATOLOGY METHOD 11/20/2024 2:38 AM EDT [facility] Lymphocytes Absolute 0.75(L) 1.20 - 3.90 10*3/uL LAB HEMATOLOGY METHOD 11/20/2024 2:38 AM EDT [facility] Monocytes Absolute 0.39 0.30 - 0.90 10*3/uL LAB HEMATOLOGY METHOD 11/20/2024 2:38 AM EDT [facility] Eosinophils Absolute 0.16 0.00 - 0.50 10*3/uL LAB HEMATOLOGY METHOD 11/20/2024 2:38 AM EDT [facility] Basophils Absolute 0.07 0.00 - 0.10 10*3/uL LAB HEMATOLOGY METHOD 11/20/2024 2:38 AM EDT [facility] Immature Granulocytes Absolute 0.28(H) 0.00 - 0.06 10*3/uL LAB HEMATOLOGY METHOD 11/20/2024 2:38 AM EDT [facility] Blood Venous blood specimen / Unknown Venipuncture / Unknown 11/20/2024 12:57 AM EDT 11/20/2024 1:10 AM EDT Narrative [facility] - 11/20/2024 2:38 AM EDT Therapeutic decision making should be based on absolute values, rather than percentages. us Alin Ivey MD LAB BLOOD ORDERABLES Final Resu lt [facility] [address] [place] [address] * (ABNORMAL) Magnesium, Plasma (11/20/2024 12:57 AM EDT) Magnesium, Plasma 1.7(L) 1.9 - 2.4 mg/dL 11/20/2024 1:39 AM EDT [facility] Blood Venous blood specimen / Unknown Venipuncture / Unknown 11/20/2024 12:57 AM EDT 11/20/2024 1:10 AM EDT us Alin Ivey MD LAB BLOOD ORDERABLES Final Resu lt Performing Organization Address [facility] Co de Phone Number [facility] [address] [place] [address] * (ABNORMAL) Phosphorus, Plasma (11/20/2024 12:57 AM EDT) Phosphorus, Plasma 2.1(L) 2.5 - 4.5 mg/dL 11/20/2024 1:39 AM EDT [facility] Blood Venous blood specimen / Unknown Venipuncture / Unknown 11/20/2024 12:57 AM EDT 11/20/2024 1:10 AM EDT us Alin Ivey MD LAB BLOOD ORDERABLES Final Resu lt Performing Organization Address [facility] de Phone Number [facility] [address] [place] [address] * (ABNORMAL) Basic Metabolic Panel, Plasma (11/20/2024 12:57 AM EDT) Glucose, Plasma 160(H) 74 - 99 mg/dL 11/20/2024 1:39 AM EDT [facility] BUN, Plasma 10 8 - 23 mg/dL 11/20/2024 1:39 AM EDT [facility] Creatinine, Plasma 0.75 0.60 - 1.10 mg/dL 11/20/2024 1:39 AM EDT [facility] BUN/Creatinine Ratio 13 11/20/2024 1:39 AM EDT [facility] Sodium, Plasma 137 136 - 145 mmol/L 11/20/2024 1:39 AM EDT [facility] Potassium, Plasma 3.4(L) 3.6 - 4.9 mmol/L 11/20/2024 1:39 AM EDT [facility] Chloride, Plasma 100 97 - 107 mmol/L 11/20/2024 1:39 AM EDT [facility] CO2, Plasma 24 22 - 29 mmol/L 11/20/2024 1:39 AM EDT [facility] Anion Gap 13 6 - 16 mmol/L 11/20/2024 1:39 AM EDT [facility] Total Calcium, Plasma 8.4(L) 8.9 - 10.2 mg/dL 11/20/2024 1:39 AM EDT [facility] eGFRcr 89.6 mL/min/1.7 3m*2 11/20/2024 1:39 AM EDT [facility] Comment:Reported eGFRcr in m L/min/1.73m2 is based the CKD-EPI 2020 equation that does not use a race coefficient. Blood Venous blood specimen / Unknown Venipuncture / Unknown 11/20/2024 12:57 AM EDT 11/20/2024 1:10 AM EDT us Alin Ivey MD LAB BLOOD ORDERABLES Final Resu lt [facility] [address] [place] [address] * (ABNORMAL) POCT glucose meter (11/19/2024 9:42 PM EDT) POCT Glucose 186(H) 74 - 99 mg/dL 11/19/2024 9:44 PM EDT [facility] Comment:Accuracy of a glucos e result obtained from a capillary whole blood specimen relies upon adequate, non-compromised capillary blood flow. If the capillary glucose result is not consistent with the patient's clinical signs and symptoms, glucose testing should be repeated with either an arterial or venous sample on the glucometer or sent to the main labortory for testing. Comment 11/19/2024 9:44 PM [facility] Global Clinical Leader ID Wilfredo Johnson 11/19/2024 9:44 PM EDT [facility] Device ID [id number] 11/19/2024 9:44 PM EDT [facility] Specimen Type POC Capillary 11/19/2024 9:44 PM EDT [facility] Blood Capillary blood specimen / Unknown 11/19/2024 9:42 PM EDT 11/19/2024 9:44 PM EDT Alin Ivey MD LAB POINT OF CARE TE ST DOCKED DEVICE UNSOLICITED RESULTS Final Result Performing Organization Address City/[facility]/ZIP Co de Phone Number [facility] [address] [place] [address] * Wilbur auris Surveillance by PCR (11/19/2024 7:58 PM EDT) [facility] Wilbur auris PCR Result Not Detected Not Detected 11/20/2024 1:19 PM EDT [facility] Swab (Axilla and Groin) Non-blood Collection / Unknown 11/19/2024 7:58 PM EDT 11/19/2024 8:33 PM EDT Narrative [facility] - 11/20/2024 1:19 PM EDT This PCR assay was developed and its performance characteristics determined by [facility] as appropriate for clinical purposes. This assay has not been cleared or approved by the FDA, but is performed in a CLIA regulated laboratory that is qualified to perform high-complexity testing. us Alin Ivey MD LAB MICROBIOLOGY - GENERAL ORDTracy NAYAK Final Result Performing Organization Address City/[facility] Co de Phone Number [facility] [address] [place] [address] * (ABNORMAL) POCT glucose meter (11/19/2024 4:35 PM EDT) [facility] POCT Glucose 176(H) 74 - 99 mg/dL 11/19/2024 4:36 PM EDT [facility] Comment:Accuracy of a glucos e result obtained from a capillary whole blood specimen relies upon adequate, non-compromised capillary blood flow. If the capillary glucose result is not consistent with the patient's clinical signs and symptoms, glucose testing should be repeated with either an arterial or venous sample on the glucometer or sent to the main labortory for testing. Comment 11/19/2024 4:36 PM EDT [facility] Global Clinical Leader ID Bi Mascorro 025 4:36 PM [facility] Device ID [id number] 11/19/2024 4:36 PM [facility] Specimen Type POC Capillary 11/19/2024 4:36 PM EDT [facility] Blood Capillary blood specimen / Unknown 11/19/2024 4:35 PM EDT 11/19/2024 4:36 PM EDT us Alin Ivey MD LAB POINT OF CARE TE ST DOCKED DEVICE UNSOLICITED RESULTS Final Result Performing Organization Address City/[facility] Co de Phone Number [facility] [address] [place] [address] * (ABNORMAL) Hemoglobin and Hematocrit, Blood (11/19/2024 4:18 PM EDT) [facility] HGB 8.2(L) 11.2 - 15.7 g/dL LAB HEMATOLOGY METHOD 11/19/2024 4:23 PM EDT [facility] HCT 25.7(L) 34.0 - 45.0 % LAB HEMATOLOGY METHOD 11/19/2024 4:23 PM EDT [facility] Blood Venous blood specimen / Unknown Venipuncture / Unknown 11/19/2024 4:18 PM EDT 11/19/2024 4:21 PM EDT Result Arlet Ivey MD LAB BLOOD ORDERABLES Final Resu lt Performing Organization Address City/[facility]/ZIP Co de Phone Number [facility] [address] [place] [address] * Transfuse RBC (11/19/2024 4:13 PM EDT) Result Arlet Ivey MD BLOOD TRANSFUSION ORDERABLES Fi nal Result * Transfuse RBC: 2 Units (11/19/2024 4:13 PM EDT) Result Arlet Ivey MD BLOOD TRANSFUSION ORDERABLES Fi nal Result * Transfuse RBC (11/19/2024 2:30 PM EDT) Result Arlet Ivey MD BLOOD TRANSFUSION ORDERABLES Fi nal Result * (ABNORMAL) POCT glucose meter (11/19/2024 2:27 PM EDT) POCT Glucose 186(H) 74 - 99 mg/dL 11/19/2024 2:29 PM EDT [facility] Comment:Accuracy of [...] to the main labortory for testing. Comment 11/19/2024 2:29 PM [facility] Global Clinical Leader ID Bi Mascorro 025 2:29 PM [facility] Device ID [id number] 11/19/2024 2:29 PM [facility] Specimen Type POC Capillary 11/19/2024 2:29 PM [facility] Blood Capillary blood specimen / Unknown 11/19/2024 2:27 PM EDT 11/19/2024 2:29 PM EDT Alin Ivey MD LAB POINT OF CARE TE ST DOCKED DEVICE UNSOLICITED RESULTS Final Result Performing Organization Address City/State/[facility] Co de Phone Number [facility] [address] [place] [address] * Prepare Leukocyte Reduced RBC: 2 Units (11/19/2024 11:58 AM EDT) Pathologist [facility] Product Code [id number] CH BLOO D BANK Dispense Status Transfused BLOOD BANK Blood Expiration Date [id number] BLOOD BANK Unit Number [id number] CH B LOOD BANK Product Blood Type 5100 BLOOD BANK Blood Type O+ CH BLOOD BANK Crossmatch Compatible CH BLOOD BANK Product Code [id number] CH BLOO D BANK Dispense Status Transfused BLOOD BANK Blood Expiration Date [id number] BLOOD BANK Unit Number [id number] CH B LOOD BANK Product Blood Type 5100 CH BLOOD BANK Blood Type O+ CH BLOOD BANK Crossmatch Compatible BLOOD BANK Other us Alin Ivey MD BLOOD BANK PRODUCT ORDERABLES F inal Result Performing Organization Address [facility] Co de Phone Number BLOOD BANK [address] * (ABNORMAL) Hemoglobin and Hematocrit, Blood (11/19/2024 11:44 AM EDT) Pathologist [facility] HGB 6.1(LL) 11.2 - 15.7 g/dL LAB HEMATOLOGY METHOD 11/19/2024 11:48 AM EDT [facility] HCT 19.1(LL) 34.0 - 45.0 % LAB HEMATOLOGY METHOD 11/19/2024 11:48 AM EDT [facility] Blood Venous blood specimen / Unknown Venipuncture / Unknown 11/19/2024 11:44 AM EDT 11/19/2024 11:45 AM EDT Alin Ivey MD LAB BLOOD ORDERABLES Final Resu lt Performing Organization Address [facility] Co de Phone Number [facility] [address] [place] [address] * (ABNORMAL) POCT glucose meter (11/19/2024 11:40 AM EDT) [facility] POCT Glucose 175(H) 74 - 99 mg/dL 11/19/2024 11:47 AM [facility] Comment:Accuracy of a glucos e result obtained from a capillary whole blood specimen relies upon adequate, non-compromised capillary blood flow. If the capillary glucose result is not consistent with the patient's clinical signs and symptoms, glucose testing should be repeated with either an arterial or venous sample on the glucometer or sent to the main labortory for testing. Comment 11/19/2024 11:47 AM [facility] Global Clinical Leader ID Bi Mascorro 025 11:47 AM [facility] Device ID [id number] 11/19/2024 11:47 AM [facility] Specimen Type POC Capillary 11/19/2024 11:47 AM EDT [facility] Blood Capillary blood specimen / Unknown 11/19/2024 11:40 AM EDT 11/19/2024 11:47 AM EDT Alin Ivey MD LAB POINT OF CARE TE ST DOCKED DEVICE UNSOLICITED RESULTS Final Result [facility] [address] [place] [address] * ECG Adult (11/19/2024 8:09 AM EDT) EKG DIAGNOSIS CLASS Borderline Normal MUSE ECG Ventricular Rate 75 BPM MUSE ECG Atrial Rate 75 BPM MUSE ECG TX Interval 134 ms MUSE ECG QRSD Interval 102 ms MUSE ECG QT Interval 404 ms MUSE ECG QTC Interval 451 ms MUSE ECG P [place] 66 degrees MUSE ECG R [place] 13 degrees MUSE ECG T Wave [place] 45 degrees MUSE ECG Diagnosis Sinus rhythm with blocked premature atrial complexes MUSE ECG Diagnosis Otherwise normal ECG MUSE ECG Diagnosis Compared to last ECG MUSE ECG Diagnosis Sinus rhythm has replaced atrial fibrillation MUSE ECG Diagnosis Confirmed by Leeroy Herbert ([id number]) on 11/19/2024 11:36:19 AM MUSE ECG 11/19/2024 8:09 AM EDT 11/19/2024 11:36 AM EDT Alin Ivey MD ECG ORDERABLES Final Result MUSE ECG * (ABNORMAL) POCT glucose meter (11/19/2024 7:42 AM EDT) Pathologist [facility] POCT Glucose 165(H) 74 - 99 mg/dL 11/19/2024 7:45 AM EDT [facility] Comment:Accuracy of [...] to the main labortory for testing. Comment 11/19/2024 7:45 AM EDT [facility] Global Clinical Leader ID Cecilia Arroyon 7:45 AM EDT [facility] Device ID [id number] 11/19/2024 7:45 AM EDT [facility] Specimen Type POC Capillary 11/19/2024 7:45 AM EDT [facility] Blood Capillary blood specimen / Unknown 11/19/2024 7:42 AM EDT 11/19/2024 7:45 AM EDT Alin Ivey MD LAB POINT OF CARE TE ST DOCKED DEVICE UNSOLICITED RESULTS Final Result Performing Organization Address City/[facility]/ZIP Co de Phone Number [facility] [address] [place] [address] * (ABNORMAL) POCT glucose meter (11/19/2024 6:11 AM EDT) [facility] POCT Glucose 159(H) 74 - 99 mg/dL 11/19/2024 6:14 AM EDT [facility] Comment:Accuracy of [...] to the main labortory for testing. Comment 11/19/2024 6:14 AM [facility] Global Clinical Leader ID Litzy Powell 025 6:14 AM EDT [facility] Device ID [id number] 11/19/2024 6:14 AM [facility] Specimen Type POC Capillary 11/19/2024 6:14 AM [facility] Blood Capillary blood specimen / Unknown 11/19/2024 6:11 AM EDT 11/19/2024 6:14 AM EDT Alin Ivey MD LAB POINT OF CARE TE ST DOCKED DEVICE UNSOLICITED RESULTS Final Result [facility] [address] [place] [address] * Transfuse RBC (11/19/2024 5:27 AM EDT) us Ry Stewart MD BLOOD TRANSFUSION ORDERABLES Fin al Result * Transfuse RBC: 1 Units (11/19/2024 5:27 AM EDT) us Ry Stewart MD BLOOD TRANSFUSION ORDERABLES Fin al Result * (ABNORMAL) POCT glucose meter (11/19/2024 4:05 AM EDT) POCT Glucose 135(H) 74 - 99 mg/dL 11/19/2024 4:06 AM [facility] Comment:Accuracy of a glucos e result obtained from a capillary whole blood specimen relies upon adequate, non-compromised capillary blood flow. If the capillary glucose result is not consistent with the patient's clinical signs and symptoms, glucose testing should be repeated with either an arterial or venous sample on the glucometer or sent to the main labortory for testing. Comment 11/19/2024 4:06 AM [facility] Global Clinical Leader ID Lashanda Stearns 11/20/19 4:06 AM [facility] Device ID [id number] 11/19/2024 4:06 AM EDT [facility] Specimen Type POC Capillary 11/19/2024 4:06 AM EDT [facility] Blood Capillary blood specimen / Unknown 11/19/2024 4:05 AM EDT 11/19/2024 4:06 AM EDT us Alin Ivey MD LAB POINT OF CARE TE ST DOCKED DEVICE UNSOLICITED RESULTS Final Result Performing Organization Address [facility]/ZIP Co de Phone Number [facility] [address] [place] [address] * Lactate, venous (11/19/2024 3:59 AM EDT) [facility] Lactate, Venous, Whole Blood 1.6 0.5 - 2.2 mmol/L LAB HEMATOLOGY METHOD 11/19/2024 4:08 AM EDT [facility] Blood Venous blood specimen / Unknown Venipuncture / Unknown 11/19/2024 3:59 AM EDT 11/19/2024 4:07 AM EDT us Jose David Topete MD LAB BLOOD ORDERABLES Final Resu lt Performing Organization Address City/[facility]/ZIP Co de Phone Number [facility] [address] [place] [address] * Prepare Leukocyte Reduced RBC: 1 Units (11/19/2024 3:38 AM EDT) Product Code [id number] BLOO D BANK Dispense Status Transfused BLOOD BANK Blood Expiration Date [id number] BLOOD BANK Unit Number [id number] B LOOD BANK Product Blood Type 5100 BLOOD BANK Blood Type O+ BLOOD BANK Crossmatch Compatible BLOOD BANK Other Jose David Topete MD BLOOD BANK PRODUCT ORDERABLES F inal Result Performing Organization Address [facility] Co de Phone Number BLOOD BANK [address] * Urine Meek Panel (11/19/2024 3:37 AM EDT) Extra Reflex urine culture not indicated 11/19/2024 12:01 PM EDT [facility] Comment: Previously prelim verified as Specimen evaluation in progress on 11/19/2024 at 0501 EDT. Previously prelim verified as Specimen evaluation in progress on 11/19/2024 at 0601 EDT. Previously prelim verified as Specimen evaluation in progress on 11/19/2024 at 0701 EDT. Previously prelim verified as Specimen evaluation in progress on 11/19/2024 at 0801 EDT. Previously prelim verified as Specimen evaluation in progress on 11/19/2024 at 0901 EDT. Previously prelim verified as Specimen evaluation in progress on 11/19/2024 at 1001 EDT. Previously prelim verified as Specimen evaluation in progress on 11/19/2024 at 1101 EDT. Urine Urine specimen obtained by clean catch procedure / Unknown Non-blood Collection / Unknown 11/19/2024 3:37 AM EDT 11/19/2024 3:46 AM EDT Jose David Topete MD LAB URINE ORDERABLES Final Resu lt Performing Organization Address [facility]/ZIP Co de Phone Number [facility] [address] [place] [address] * (ABNORMAL) Urinalysis with reflex microscopic (Culture NOT Included) (11/19/2024 3:37 AM EDT) Color, Urine Yellow LAB URINALYSIS - AUTOMATED METHOD 11/19/2024 4:09 AM EDT [facility] Clarity, Urine Clear LAB URINALYSIS - AUTOMATED METHOD 11/19/2024 4:09 AM EDT [facility] Spec [place], Urine >1.030(H) 1.005 - 1.030 LAB URINALYSIS - AUTOMATED METHOD 11/19/2024 4:09 AM EDT [facility] pH, Urine 6.0 5.0 - 8.0 LAB URINALYSIS - AUTOMATED METHOD 11/19/2024 4:09 AM EDT [facility] Protein, Urine Negative Negative mg/dL LAB URINALYSIS - AUTOMATED METHOD 11/19/2024 4:09 AM EDT [facility] Glucose, Urine >=1000(A) Negative mg/dL LAB URINALYSIS - AUTOMATED METHOD 11/19/2024 4:09 AM EDT [facility] Ketones, Urine Negative Negative mg/dL LAB URINALYSIS - AUTOMATED METHOD 11/19/2024 4:09 AM EDT [facility] Blood, Urine Negative Negative LAB URINALYSIS - AUTOMATED METHOD 11/19/2024 4:09 AM EDT [facility] Bilirubin, Urine Negative Negative LAB URINALYSIS - AUTOMATED METHOD 11/19/2024 4:09 AM EDT [facility] Urobilinogen, Urine 0.2 0.2 to 1.0 mg/dL LAB URINALYSIS - AUTOMATED METHOD 11/19/2024 4:09 AM EDT [facility] Leukocytes, Urine Negative Negative LAB URINALYSIS - AUTOMATED METHOD 11/19/2024 4:09 AM EDT [facility] Nitrite, Urine Negative Negative LAB URINALYSIS - AUTOMATED METHOD 11/19/2024 4:09 AM EDT [facility] Urine Urine specimen obtained by clean catch procedure / Unknown Non-blood Collection / Unknown 11/19/2024 3:37 AM EDT 11/19/2024 4:06 AM EDT us Jose David Topete MD LAB URINE ORDERABLES Final Resu lt [facility] [address] [place] [address] * Type and screen (11/19/2024 1:33 AM EDT) ABO/Rh O Positive 11/19/2024 1:31 AM EDT BLOOD BANK Antibody Screen Negative 11/19/2024 1:31 AM EDT BLO[facility]ANK Specimen Expiration 11/22/2024 23:59 11/19/2024 1:31 AM EDT BLOOD BANK Blood Venous blood specimen / Unknown Venipuncture / Unknown 11/19/2024 1:33 AM EDT 11/19/2024 1:37 AM EDT us Jose David Topete MD LAB BLOOD BANK TEST ORDERABLES Final Result BLO[facility] BANK [address] [place] [address], * (ABNORMAL) Iron & Total Iron Binding Capacity, Plasma (Includes Transferrin) (11/19/2024 12:51 AM EDT) Iron, Plasma 67 30 - 160 ug/dL 11/19/2024 4:08 AM EDT [facility] Transferrin, Plasma 182(L) 200 - 360 mg/dL 11/19/2024 4:08 AM EDT [facility] Total Iron Binding Capacity, Plasma 228(L) 240 - 450 ug/mL 11/19/2024 4:08 AM EDT [facility] Transferrin Saturation 29 14 - 50 % 11/19/2024 4:08 AM EDT [facility] Blood Venous blood specimen / Unknown Venipuncture / Unknown 11/19/2024 12:51 AM EDT 11/19/2024 12:53 AM EDT us Alin Ivey MD LAB BLOOD ORDERABLES Final Resu lt [facility] [address] [place] [address] * Anti Xa Level Unfractionated Heparin (11/19/2024 12:51 AM EDT) Anti Xa Level Unfractionated Heparin <0.11 <1.00 IU/mL 11/19/2024 1:10 AM EDT [facility] Blood Venous blood specimen / Unknown Venipuncture / Unknown 11/19/2024 12:51 AM EDT 11/19/2024 12:53 AM EDT Narrative [facility] - 11/19/2024 1:10 AM EDT Therapeutic Range: UFH Full Dose and ACS/GA protocols*: 0.30 - 0.70 IU/mL UFH Low Dose protocol*: 0.25 - 0.50 IU/mL UFH prophylaxis: Not established us Jose David Topete MD LAB BLOOD ORDERABLES Final Resu lt Performing Organization Address [facility]/ZIP Co de Phone Number [facility] [address] [place] [address] * (ABNORMAL) Magnesium (11/19/2024 12:51 AM EDT) Magnesium, Plasma 1.6(L) 1.9 - 2.4 mg/dL 11/19/2024 1:23 AM EDT [facility] Blood Venous blood specimen / Unknown Venipuncture / Unknown 11/19/2024 12:51 AM EDT 11/19/2024 12:53 AM EDT us Jose David Topete MD LAB BLOOD ORDERABLES Final Resu lt Performing Organization Address [facility]/ZIP Co de Phone Number [facility] [address] [place] [address] * (ABNORMAL) CMP (11/19/2024 12:51 AM EDT) Glucose, Plasma 130(H) 74 - 99 mg/dL 11/19/2024 1:23 AM EDT [facility] BUN, Plasma 19 8 - 23 mg/dL 11/19/2024 1:23 AM EDT [facility] Creatinine, Plasma 1.08 0.60 - 1.10 mg/dL 11/19/2024 1:23 AM EDT [facility] BUN/Creatinine Ratio 18 11/19/2024 1:23 AM EDT [facility] Sodium, Plasma 136 136 - 145 mmol/L 11/19/2024 1:23 AM EDT [facility] Potassium, Plasma 3.4(L) 3.6 - 4.9 mmol/L 11/19/2024 1:23 AM EDT [facility] Chloride, Plasma 99 97 - 107 mmol/L 11/19/2024 1:23 AM EDT [facility] CO2, Plasma 23 22 - 29 mmol/L 11/19/2024 1:23 AM EDT [facility] Anion Gap 14 6 - 16 mmol/L 11/19/2024 1:23 AM EDT [facility] Total Calcium, Plasma 9.1 8.9 - 10.2 mg/dL 11/19/2024 1:23 AM EDT [facility] Total Protein 6.4 6.3 - 7.9 g/dL 11/19/2024 1:23 AM EDT [facility] Albumin, Plasma 3.5 3.5 - 5.2 g/dL 11/19/2024 1:23 AM EDT [facility] AST, Plasma 12 10 - 35 U/L 11/19/2024 1:23 AM EDT [facility] ALT, Plasma 19 10 - 35 U/L 11/19/2024 1:23 AM EDT [facility] Alkaline Phosphatase, Plasma 99 46 - 142 U/L 11/19/2024 1:23 AM EDT [facility] Total Bilirubin, Plasma 0.7 0.2 - 1.1 mg/dL 11/19/2024 1:23 AM EDT [facility] eGFRcr 57.8 mL/min/1.7 3m*2 11/19/2024 1:23 AM EDT [facility] Comment:Reported eGFRcr in m L/min/1.73m2 is based the CKD-EPI 2020 equation that does not use a race coefficient. Blood Venous blood specimen / Unknown Venipuncture / Unknown 11/19/2024 12:51 AM EDT 11/19/2024 12:53 AM EDT us Jose David Topete MD LAB BLOOD ORDERABLES Final Resu lt [facility] [address] [place] [address] * (ABNORMAL) CBC w/diff (11/19/2024 12:51 AM EDT) WBC Count 3.61(L) 3.70 - 10.30 10*3/uL LAB HEMATOLOGY METHOD 11/19/2024 2:05 AM EDT [facility] RBC Count 2.08(L) 3.90 - 5.20 10*6/uL LAB HEMATOLOGY METHOD 11/19/2024 2:05 AM EDT [facility] HGB 6.5(L) 11.2 - 15.7 g/dL LAB HEMATOLOGY METHOD 11/19/2024 2:05 AM EDT [facility] HCT 20.8(L) 34.0 - 45.0 % LAB HEMATOLOGY METHOD 11/19/2024 2:05 AM EDT [facility] Platelet Count 73(L) 155 - 369 10*3/uL LAB HEMATOLOGY METHOD 11/19/2024 2:05 AM EDT [facility] MCV 100(H) 79 - 98 fL LAB HEMATOLOGY METHOD 11/19/2024 2:05 AM EDT [facility] MCH 31.3 26.0 - 32.0 pg LAB HEMATOLOGY METHOD 11/19/2024 2:05 AM EDT [facility] MCHC 31.3 30.7 - 35.5 g/dL LAB HEMATOLOGY METHOD 11/19/2024 2:05 AM EDT [facility] RDW 17.3(H) 11.5 - 14.5 % LAB HEMATOLOGY METHOD 11/19/2024 2:05 AM EDT [facility] MPV 10.7 8.8 - 12.5 fL LAB HEMATOLOGY METHOD 11/19/2024 2:05 AM EDT [facility] nRBC 2.2(H) <=0.0 per 100 WBCs LAB HEMATOLOGY METHOD 11/19/2024 2:05 AM EDT [facility] Differential Type Automated LAB HEMATOLOGY METHOD 11/19/2024 2:05 AM EDT [facility] Neutrophils % 54 % LAB HEMATOLOGY METHOD 11/19/2024 2:05 AM EDT [facility] Lymphocytes % 27 % LAB HEMATOLOGY METHOD 11/19/2024 2:05 AM EDT [facility] Monocytes % 11 % LAB HEMATOLOGY METHOD 11/19/2024 2:05 AM EDT [facility] Eosinophils % 4 % LAB HEMATOLOGY METHOD 11/19/2024 2:05 AM EDT [facility] Basophils % 2 % LAB HEMATOLOGY METHOD 11/19/2024 2:05 AM EDT [facility] Immature Granulocytes % 2 % LAB HEMATOLOGY METHOD 11/19/2024 2:05 AM EDT [facility] Neutrophils Absolute 1.99 1.60 - 6.10 10*3/uL LAB HEMATOLOGY METHOD 11/19/2024 2:05 AM EDT [facility] Lymphocytes Absolute 0.97(L) 1.20 - 3.90 10*3/uL LAB HEMATOLOGY METHOD 11/19/2024 2:05 AM EDT [facility] Monocytes Absolute 0.38 0.30 - 0.90 10*3/uL LAB HEMATOLOGY METHOD 11/19/2024 2:05 AM EDT [facility] Eosinophils Absolute 0.13 0.00 - 0.50 10*3/uL LAB HEMATOLOGY METHOD 11/19/2024 2:05 AM EDT [facility] Basophils Absolute 0.07 0.00 - 0.10 10*3/uL LAB HEMATOLOGY METHOD 11/19/2024 2:05 AM EDT [facility] Immature Granulocytes Absolute 0.07(H) 0.00 - 0.06 10*3/uL LAB HEMATOLOGY METHOD 11/19/2024 2:05 AM EDT [facility] Blood Venous blood specimen / Unknown Venipuncture / Unknown 11/19/2024 12:51 AM EDT 11/19/2024 12:53 AM EDT Narrative [facility] - 11/19/2024 2:05 AM EDT Therapeutic decision making should be based on absolute values, rather than percentages. us Jose David Topete MD LAB BLOOD ORDERABLES Final Resu lt [facility] [address] [place] [address] * (ABNORMAL) POCT glucose meter (11/19/2024 12:43 AM EDT) POCT Glucose 133(H) 74 - 99 mg/dL 11/19/2024 12:45 AM EDT [facility] Comment:Accuracy of [...] to the main labortory for testing. Comment 11/19/2024 12:45 AM EDT [facility] Global Clinical Leader ID Noam Stiles 11/19/2024 12:45 AM EDT [facility] Device ID [id number] 11/19/2024 12:45 AM EDT [facility] Specimen Type POC Capillary 11/19/2024 12:45 AM EDT [facility] Blood Capillary blood specimen / Unknown 11/19/2024 12:43 AM EDT 11/19/2024 12:45 AM EDT us Generic Provider Poct LAB POINT OF CARE TEST DOCKED DEVICE UNSOLICITED RESULTS Final Result [facility] [address] [place] [address] * ECG Adult (11/19/2024 12:42 AM EDT) EKG DIAGNOSIS CLASS Abnormal MUSE ECG Ventricular Rate 140 BPM MUSE ECG QRSD Interval 90 ms MUSE ECG QT Interval 288 ms MUSE ECG QTC Interval 439 ms MUSE ECG R [place] 23 degrees MUSE ECG T Wave [place] 101 degrees MUSE ECG Diagnosis Baseline Artifact MUSE ECG Diagnosis Atrial fibrillation with rapid ventricular response MUSE ECG Diagnosis Nonspecific ST and T wave abnormality MUSE ECG Diagnosis Abnormal ECG MUSE ECG Diagnosis Compared to last ECG MUSE ECG Diagnosis Atrial fibrillation has replaced sinus rhythm MUSE ECG Diagnosis MUSE ECG Diagnosis Confirmed by Leeroy Herbert ([id number]) on 11/19/2024 11:13:01 AM MUSE ECG 11/19/2024 12:4 2 AM EDT 11/19/2024 11:13 AM EDT us Jose David Topete MD ECG ORDERABLES Final Result MUSE ECG documented in this encounter Visit Diagnoses Diagnosis Atrial fibrillation with rapid ventricular response (CMS/HCC)- Primary Atrial fibrillation with rapid ventricular response (CMS/HCC) Small cell carcinoma of lung, unspecified laterality, unspecified part of lung Type 2 diabetes mellitus with diabetic neuropathy, unspecified whether senior care insulin use (CMS/HCC) documented in this encounter Admitting Diagnoses Diagnosis Atrial fibrillation with rapid ventricular response (CMS/HCC) documented in this encounter Administered Medications Inactive Administered Medications - up to 3 most recent administrations Medication Order MAR Action Action Date Dose Rate Site acetaminophen (Tylenol) tablet 650 mg 650 mg, Oral, Once, 1 dose, On Thu11/21/24 at 0700, Routine Given 11/21/2024 6:15 AM EDT 650 mg acetaminophen (Tylenol) tablet 650 mg 650 mg, Oral, Once, 1 dose, On Thu11/21/24 at 2215, Routine Given 11/21/2024 10:35 PM EDT 650 mg acetaminophen (Tylenol) tablet 650 mg 650 mg, Oral, Once, 1 dose, On Thu11/22/24 at 1130, Routine Given 11/22/2024 11:00 AM EDT 650 mg atorvastatin (Lipitor) tablet 40 mg 40 mg, Oral, Every evening, First dose on Thu11/19/24 at 1700, Until Discontinued, Routine Given 11/21/2024 5:30 PM EDT 40 mg Given 11/20/2024 4:21 PM EDT 40 mg Given 11/19/2024 4:42 PM EDT 40 mg cefTRIAXone (Rocephin) 1 g in sodium chloride 0.9% 100 mL IVPB (vial adapter required) 1 g, Intravenous, Every 24 hours, 3 doses, First dose on Thu11/20/24 at 1315, Last dose on Thu11/22/24 at 1100, Routine New Bag 11/22/2024 12:37 PM EDT 1 g 220 mL/hr New Bag 11/21/2024 1:36 PM EDT 1 g 220 mL/hr New Bag 11/20/2024 1:40 PM EDT 1 g 220 mL/hr dextrose 10 % (D10W) bolus 125 mL 125 mL, Intravenous, Every 15 min PRN, Starting on Thu11/19/24 at 0353, Until Thu11/22/24 at 1858, Administer over 15 Minutes, Routine, low blood sugar BG 51-89 mg/dL dextrose 10 % (D10W) bolus 250 mL 250 mL, Intravenous, Every 15 min PRN, Starting on Thu11/19/24 at 0353, Until Thu11/22/24 at 1858, Administer over 15 Minutes, Routine, PRN low blood sugar BG =/<50 mg/dL gabapentin (Neurontin) capsule 600 mg 600 mg, Oral, 3 times daily, First dose on Thu11/19/24 at 0900, Until Discontinued Given 11/22/2024 8:21 AM EDT 600 m g Given 11/21/2024 9:06 PM EDT 600 mg Given 11/21/2024 5:00 PM EDT 600 mg glucagon (human recombinant) injection 1 mg 1 mg, Intramuscular, Every 15 min PRN, Starting on Thu11/19/24 at 0353, Until Thu11/22/24 at 1858, Routine, low blood sugar per Hypoglycemia Prevention and Treatment protocol glucose (Glutose) 40 % oral gel 15-30 grams of glucose 15-30 grams of glucose, Sublingual, Every 15 min PRN, Starting on Thu11/19/24 at 0353, Until Thu11/22/24 at 1858, Routine, low blood sugar, per Hypoglycemia Prevention and Treatment protocol insulin glargine-yfgn 100 UNIT/ML injection 10 Units 10 Units, Subcutaneous, Nightly, First dose on Thu11/21/24 at 2100, Until Discontinued, Routine Given 11/21/2024 9:06 PM EDT 10 Units Right Lower Abdomen insulin lispro (Admelog) 100 units/mL injection - Correction - Resistant Dose 0-10 Units, Subcutaneous, 3 times daily with meals, First dose on Thu11/19/24 at 0830, Until Discontinued, Routine Given 11/19/2024 4:42 PM EDT 2 Units Left Upper Arm (Back ) Given 11/19/2024 8:07 AM EDT 2 Units Le ft Upper Abdomen insulin lispro (Admelog) 100 units/mL injection - Correction - Standard Dose 0-5 Units, Subcutaneous, 3 times daily with meals, First dose on Thu11/19/24 at 1730, Until Discontinued, Routine Given 11/22/2024 12:35 PM EDT 1 Units Left Lower Abdomen Given 11/22/2024 8:22 AM EDT 1 Units Le ft Lower Abdomen insulin lispro (Admelog) injection - Correction - Nighttime Dose 0-3 Units, Subcutaneous, 2 times nightly (2100 & 0300), First dose on 11/19/24 at 2100, Until Discontinued, Routine ipratropium-albuterol (Duo-Neb) 0.5-2.5 mg/3 mL nebulizer solution 3 mL 3 mL, Nebulization, Every 6 hours PRN, Starting on Thu11/21/24 at 2033, Until Thu11/22/24 at 1858, Routine, wheezing Given 11/21/2024 9:49 PM EDT 3 mL lactated Ringer's infusion 1,000 mL 1,000 mL, Intravenous, Once, 1 dose, On 11/19/24 at 0110, STAT New Bag 11/19/2024 1:14 AM EDT 1,000 mL magnesium oxide (Mag-Ox) tablet 400 mg 400 mg, Oral, Once, 1 dose, On 11/20/24 at 0845, Routine Given 11/20/2024 8:05 AM EDT 400 mg magnesium sulfate IVPB 2 g 2 g, Intravenous, Once, 1 dose, On 11/19/24 at 0350, at 25 mL/hr, Administer over 2 Hours, Routine New Bag 11/19/2024 5:49 AM EDT 2 g 25 mL/hr metoprolol tartrate (Lopressor) split tablet 12.5 mg 12.5 mg, Oral, 2 times daily, First dose on 11/19/24 at 0900, Until Discontinued, Routine Given 11/19/2024 8:41 PM EDT 12.5 mg Given 11/19/2024 8:05 AM EDT 12.5 mg metoprolol tartrate (Lopressor) tablet 25 mg 25 mg, Oral, Once, 1 dose, On 11/20/24 at 0315, Routine Given 11/20/2024 2:40 AM EDT 25 mg metoprolol tartrate (Lopressor) tablet 25 mg 25 mg, Oral, Once, 1 dose, On Thu11/20/24 at 0815, Routine Given 11/20/2024 8:05 AM EDT 25 mg metoprolol tartrate (Lopressor) tablet 25 mg 25 mg, Oral, Every 8 hours scheduled, 3 doses, First dose on Thu11/20/24 at 2100, Last dose on Thu11/21/24 at 1400, Routine Given 11/21/2024 6:02 AM EDT 25 mg Given 11/20/2024 9:10 PM EDT 25 mg metoprolol tartrate (Lopressor) tablet 25 mg 25 mg, Oral, Once, 1 dose, On Thu11/20/24 at 2000, Routine Given 11/20/2024 7:24 PM EDT 25 mg metoprolol tartrate (Lopressor) tablet 25 mg 25 mg, Oral, Once, 1 dose, On Thu11/21/24 at 0245, Routine Given 11/21/2024 1:55 AM EDT 25 mg metoprolol tartrate (Lopressor) tablet 50 mg 50 mg, Oral, Once, 1 dose, On Thu11/20/24 at 1400, Routine Given 11/20/2024 2:15 PM EDT 50 mg metoprolol tartrate (Lopressor) tablet 50 mg 50 mg, Oral, 2 times daily, First dose on Thu11/21/24 at 2100, Until Discontinued, Routine Given 11/22/2024 8:22 AM EDT 50 mg Given 11/21/2024 11:14 PM EDT 50 mg mometasone-formoterol (Dulera 100) 100-5 MCG/ACT inhaler 2 puff 2 puff, Inhalation, 2 times daily, First dose on [facility] 11/19/24 at 0900, Until Discontinued Given 11/22/2024 8:22 AM EDT 2 puffs Given 11/21/2024 8:07 PM EDT 2 puffs Given 11/21/2024 8:00 AM EDT 2 puffs nitrofurantoin (macrocrystal-monohydrate) (Macrobid) capsule 100 mg 100 mg, Oral, 2 times daily, First dose on [facility] 11/19/24 at 1045, Until Discontinued, Routine Given 11/20/2024 8:05 AM EDT 100 mg Given 11/19/2024 8:47 PM EDT 100 mg Given 11/19/2024 12:06 PM EDT 100 mg ondansetron (Zofran) 4 MG/5ML solution 4 mg 4 mg, Oral, Every 6 hours PRN, Starting on Thu11/20/24 at 0838, Until Thu11/22/24 at 1858, Routine, nausea, vomiting ondansetron (Zofran) injection 4 mg 4 mg, Intravenous, Every 6 hours PRN, Starting on Thu11/20/24 at 0838, Until Thu11/22/24 at 1858, Routine, vomiting, nausea Given 11/20/2024 9:01 AM EDT 4 mg ondansetron (Zofran) injection 4 mg 4 mg, Intravenous, Once, 1 dose, On Thu11/20/24 at 1345, Routine Given 11/20/2024 12:56 PM EDT 4 mg ondansetron ODT (Zofran-ODT) disintegrating tablet 4 mg 4 mg, Oral, Every 6 hours PRN, Starting on Thu11/20/24 at 0838, Until Thu11/22/24 at 1858, Routine, nausea, vomiting pantoprazole (Protonix) EC tablet 40 mg 40 mg, Oral, Daily, First dose on Thu11/19/24 at 0900, Until Discontinued, Routine Given 11/22/2024 8:22 AM EDT 40 mg Given 11/21/2024 8:00 AM EDT 40 mg Given 11/20/2024 8:05 AM EDT 40 mg phosphorus (K Phos Neutral) tablet 1 tablet 1 tablet, Oral, Every 8 hours, 3 doses, First dose on Thu11/20/24 at 0845, Last dose on Thu11/21/24 at 0045, Routine Given 11/21/2024 12:41 AM EDT 1 table t Given 11/20/2024 4:21 PM EDT 1 tablet Given 11/20/2024 8:05 AM EDT 1 tablet piperacillin-tazobactam (Zosyn) 4.5 g in sodium chloride 0.9% 100 mL IVPB (vial adapter required) 4.5 g, Intravenous, Once, 1 dose, On 11/19/24 at 0145, STAT New Bag 11/19/2024 5:48 AM EDT 4.5 g 36. 7 mL/hr potassium chloride CR (Klor-Con) ER tablet 20 mEq 20 mEq, Oral, Once, 1 dose, On 11/19/24 at 0830, Routine Given 11/19/2024 10:58 AM EDT 20 mEq potassium chloride CR (Klor-Con) ER tablet 40 mEq 40 mEq, Oral, Once, 1 dose, On 11/19/24 at 0640, Routine Given 11/19/2024 8:06 AM EDT 40 mEq potassium chloride CR (Klor-Con) ER tablet 40 mEq 40 mEq, Oral, Once, 1 dose, On 11/20/24 at 0845, Routine Given 11/20/2024 8:10 AM EDT 40 mEq potassium chloride CR (Klor-Con) ER tablet 40 mEq 40 mEq, Oral, Once, 1 dose, On 11/21/24 at 0815, Routine Given 11/21/2024 9:00 AM EDT 30 mEq sodium chloride 0.9 % flush 10 mL 10 mL, Intravenous, Every 12 hours, First dose on 11/19/24 at 0345, Until Discontinued, Routine Given 11/22/2024 3:32 AM EDT 10 mL Given 11/21/2024 2:58 AM EDT 10 mL Given 11/20/2024 2:48 AM EDT 10 mL sodium chloride 0.9 % flush 10 mL 10 mL, Intravenous, As needed, Starting on 11/19/24 at 0340, Until Tu11/22/24 at 1858, Routine, line care Tiotropium [place] Monohydrate (Spiriva Respimat) 2.5 MCG/ACT inhaler 2 puff 2 puff, Inhalation, Daily, First dose on 11/19/24 at 0900, Until Discontinued Given 11/22/2024 8:22 AM EDT 2 puffs Given 11/21/2024 8:00 AM EDT 2 puffs Given 11/20/2024 8:13 AM EDT 2 puffs vancomycin (Vancocin) 2,250 mg in sodium chloride 0.9 % 500 mL 2,250 mg (rounded from 2,360 mg = 20 mg/kg 118 kg), Intravenous, Once, 1 dose, On 11/19/24 at 0200, at 252.2 mL/hr, STAT Given 11/19/2024 2:13 AM EDT 2,250 mg 252.2 mL/hr documented in this encounter Active and Recently Administered Medications Times are shown in EDT. Scheduled Medication Order 11/20/2024 11/21/2024 11/22/2024 acetaminophen (Tylenol) tablet 650 mg (COMPLETED) 650 mg, Oral, Once, 1 dose, On Thu11/21/24 at 0700, Routine 0615 (Given - Provider: Refugio Page, RN) acetaminophen (Tylenol) tablet 650 mg (COMPLETED) 650 mg, Oral, Once, 1 dose, On Thu11/21/24 at 2215, Routine 2235 (Given - Provider: Refugio Page RN) acetaminophen (Tylenol) tablet 650 mg (COMPLETED) 650 mg, Oral, Once, 1 dose, On Thu11/22/24 at 1130, Routine 1100 (Given - Provid er: Luis Angel Cantu) atorvastatin (Lipitor) tablet 40 mg 40 mg, Oral, Every evening, First dose on Thu11/19/24 at 1700, Until Discontinued, Routine 1621 (Given - Provider: Flor Pierre RN) 1730 (Given - Provider: Flor Pierre RN) 1700 (Canceled Entry - Provider: Automatic Discharge Provider - Comment: Automatically canceled at discontinue of medication order) cefTRIAXone (Rocephin) 1 g in sodium chloride 0.9% 100 mL IVPB (vial adapter required) (COMPLETED) 1 g, Intravenous, Every 24 hours, 3 doses, First dose on Thu11/20/24 at 1315, Last dose on Thu11/22/24 at 1100, Routine 1340 (New Bag - Provider: Flor Pierre RN) 1336 (New Bag - Provider: Flor Pierre RN) 1237 (New Bag - Provider: Luis Angel Cantu) gabapentin (Neurontin) capsule 600 mg 600 mg, Oral, 3 times daily, First dose on Thu11/19/24 at 0900, Until Discontinued 0805 (Given - Provider: Flor Pierre RN)1621 (Given - Provider: Flor Pierre RN)2110 (Given - Provider: Refugio Page, JOSE MARTIN) 0932 (Given - Provider: Flor Pierre RN)1700 (Given - Provider: Flor Pierre RN)2106 (Given - Provider: Refugio Page RN) 0821 (Given - Provider: Luis Angel Cantu)1648 (Not Given - Provider: Luis Angel Cantu - Reason: Patient/family refused - Comment: d/t discharge) insulin glargine-yfgn 100 UNIT/ML injection 10 Units 10 Units, Subcutaneous, Nightly, First dose on 11/21/24 at 2100, Until Discontinued, Routine 2106 (Given - Provider: Refugio Page RN) insulin lispro (Admelog) 100 units/mL injection - Correction - Standard Dose 0-5 Units, Subcutaneous, 3 times daily with meals, First dose on 11/19/24 at 1730, Until Discontinued, Routine 1122 (Not Given - Provider: Flor Pierre RN - Reason: Order parameters not met)1324 (Not Given - Provider: Flor Pierre RN - Reason: Order parameters not met)1827 (Not Given - Provider: Flor Pierre RN - Reason: Order parameters not met) 0932 (Not Given - Provider: Flor Pierre RN - Reason: Order parameters not met)1335 (Not Given - Provider: Flor Pierre RN - Reason: Order parameters not met)1803 (Not Given - Provider: Flor Pierre RN - Reason: Order parameters not met) 0822 (Given - Provider: Luis Angel Cantu)1235 (Given - Provider: Luis Angel Cantu)1730 (Canceled Entry - Provider: Automatic Discharge Provider - Comment: Automatically canceled at discontinue of medication order) insulin lispro (Admelog) injection - Correction - Nighttime Dose 0-3 Units, Subcutaneous, 2 times nightly (2100 & 0300), First dose on 11/19/24 at 2100, Until Discontinued, Routine 0230 (Not Given - Provider: Refugio Page RN - Reason: Order parameters not met)211 (Not Given - Provider: Refugio Page RN - Reason: Order parameters not met) 0259 (Not Given - Provider: Refugio Page RN - Reason: Order parameters not met)2140 (Not Given - Provider: Refugio Page RN - Reason: Order parameters not met) 0332 (Not Given - Provider: Refugio Page RN - Reason: Order parameters not met) magnesium oxide (Mag-Ox) tablet 400 mg (COMPLETED) 400 mg, Oral, Once, 1 dose, On 11/20/24 at 0845, Routine 0805 (Given - Provider: Flor Pierre RN) metoprolol tartrate (Lopressor) tablet 25 mg (COMPLETED) 25 mg, Oral, Once, 1 dose, On 11/20/24 at 0315, Routine 0240 (Given - Provider: Angel Torres) metoprolol tartrate (Lopressor) tablet 25 mg (COMPLETED) 25 mg, Oral, Once, 1 dose, On 11/20/24 at 0815, Routine 0805 (Given - Provider: Flor Pierre RN) metoprolol tartrate (Lopressor) tablet 25 mg () 25 mg, Oral, Every 8 hours scheduled, 3 doses, First dose on 11/20/24 at 2100, Last dose on Thu11/21/24 at 1400, Routine 211 (Given - Provider: Refugio Page RN) 06 (Given - Provider: Angel Torres)1834 (Not Given - Provider: Flor Pierre RN - Reason: Order changed) metoprolol tartrate (Lopressor) tablet 25 mg (COMPLETED) 25 mg, Oral, Once, 1 dose, On 11/20/24 at 2000, Routine 1924 (Given - Provider: Refugio Page RN) metoprolol tartrate (Lopressor) tablet 25 mg (COMPLETED) 25 mg, Oral, Once, 1 dose, On 11/21/24 at 0245, Routine 0155 (Given - Provider: Angel Torres) metoprolol tartrate (Lopressor) tablet 50 mg (COMPLETED) 50 mg, Oral, Once, 1 dose, On 11/20/24 at 1400, Routine 1415 (Given - Provider: Flor Pierre RN) metoprolol tartrate (Lopressor) tablet 50 mg 50 mg, Oral, 2 times daily, First dose on 11/21/24 at 2100, Until Discontinued, Routine 231 (Given - Provider: Refugio Page RN - Comment: BP was low) 08 (Given - Provider: Luis Angel Cantu) mometasone-formoterol (Dulera 100) 100-5 MCG/ACT inhaler 2 puff(Linked Group 1) 2 puff, Inhalation, 2 times daily, First dose on 11/19/24 at 0900, Until Discontinued 813 (Given - Provider: Flor Pierre RN)2117 (Given - Provider: Refugio Page RN) 08 (Given - Provider: Flor Pierre RN)2006 (Given - Provider: Sheron Perez) 0822 (Given - Provider: Luis Angel Cantu) nitrofurantoin (macrocrystal-monohydr ate) (Macrobid) capsule 100 mg (CANCELED) 100 mg, Oral, 2 times daily, First dose on 11/19/24 at 1045, Until Discontinued, Routine 0805 (Given - Provider: Flor Pierre RN) ondansetron (Zofran) injection 4 mg (COMPLETED) 4 mg, Intravenous, Once, 1 dose, On 11/20/24 at 1345, Routine 1256 (Given - Provider: Flor Pierre RN) pantoprazole (Protonix) EC tablet 40 mg 40 mg, Oral, Daily, First dose on 11/19/24 at 0900, Until Discontinued, Routine 0805 (Given - Provider: Flor Pierre RN) 0800 (Given - Provider: Flor Pierre RN) 0822 (Given - Provider: Luis Angel Cantu) phosphorus (K Phos Neutral) tablet 1 tablet (COMPLETED) 1 tablet, Oral, Every 8 hours, 3 doses, First dose on Thu11/20/24 at 0845, Last dose on Thu11/21/24 at 0045, Routine 0805 (Given - Provider: Flor Pierre RN)1621 (Given - Provider: Flor Pierre RN) 0041 (Given - Provider: Angel Torres) potassium chloride CR (Klor-Con) ER tablet 40 mEq (COMPLETED) 40 mEq, Oral, Once, 1 dose, On 11/20/24 at 0845, Routine 0810 (Given - Provider: Flor Pierre RN) potassium chloride CR (Klor-Con) ER tablet 40 mEq (COMPLETED) 40 mEq, Oral, Once, 1 dose, On 11/21/24 at 0815, Routine 0900 (Given - Provider: Flor Pierre RN - Comment: Need more from pharmacy) sodium chloride 0.9 % flush 10 mL(Linked Group 2) 10 mL, Intravenous, Every 12 hours, First dose on 11/19/24 at 0345, Until Discontinued, Routine 0248 (Given - Provider: Refugio Page RN)1545 (Canceled Entry - Provider: Flor Pierre RN) 0258 (Given - Provider: Refugio Page RN)1834 (Canceled Entry - Provider: Flor Pierre RN) 0332 (Given - Provider: Refugio Page RN)[id number] (Not Given - Provider: Luis Angel Cantu - Reason: Loss of IV access) Tiotropium [place] Monohydrate (Spiriva Respimat) 2.5 MCG/ACT inhaler 2 puff(Linked Group 1) 2 puff, Inhalation, Daily, First dose on 11/19/24 at 0900, Until Discontinued 08 (Given - Provider: Flor Pierre RN) 0800 (Given - Provider: Flor Pierre RN) 08 (Given - Provider: Luis Angel Cantu) PRN Medication Order 11/20/2024 11/21/2024 11/22/2024 dextrose 10 % (D10W) bolus 125 mL(Linked Group 3) 125 mL, Intravenous, Every 15 min PRN, Starting on 11/19/24 at 0353, Until 11/22/24 at 1858, Administer over 15 Minutes, Routine, low blood sugar BG 51-89 mg/dL dextrose 10 % (D10W) bolus 250 mL(Linked Group 3) 250 mL, Intravenous, Every 15 min PRN, Starting on 11/19/24 at 0353, Until 11/22/24 at 1858, Administer over 15 Minutes, Routine, PRN low blood sugar BG =/<50 mg/dL glucagon (human recombinant) injection 1 mg(Linked Group 3) 1 mg, Intramuscular, Every 15 min PRN, Starting on 11/19/24 at 0353, Until Tu11/22/24 at 1858, Routine, low blood sugar per Hypoglycemia Prevention and Treatment protocol glucose (Glutose) 40 % oral gel 15-30 grams of glucose(Linked Group 3) 15-30 grams of glucose, Sublingual, Every 15 min PRN, Starting on 11/19/24 at 0353, Until 11/22/24 at 1858, Routine, low blood sugar, per Hypoglycemia Prevention and Treatment protocol ipratropium-albuterol (Duo-Neb) 0.5-2.5 mg/3 mL nebulizer solution 3 mL 3 mL, Nebulization, Every 6 hours PRN, Starting on 11/21/24 at 2033, Until Thu11/22/24 at 1858, Routine, wheezing 2148 (Given - Provider: Sheron Perez) ondansetron (Zofran) 4 MG/5ML solution 4 mg(Linked Group 4) 4 mg, Oral, Every 6 hours PRN, Starting on 11/20/24 at 0838, Until Thu11/22/24 at 1858, Routine, nausea, vomiting 0901 (See Alternative - Provider: Flor Pierre, JOSE MARTIN) ondansetron (Zofran) injection 4 mg(Linked Group 4) 4 mg, Intravenous, Every 6 hours PRN, Starting on 11/20/24 at 0838, Until Thu11/22/24 at 1858, Routine, vomiting, nausea 0901 (Given - Provider: Flor Pierre, JOSE MARTIN) ondansetron ODT (Zofran-ODT) disintegrating tablet 4 mg(Linked Group 4) 4 mg, Oral, Every 6 hours PRN, Starting on 11/20/24 at 0838, Until Thu11/22/24 at 1858, Routine, nausea, vomiting 0901 (See Alternative - Provider: Flor Pierre, JOSE MARTIN) sodium chloride 0.9 % flush 10 mL(Linked Group 2) 10 mL, Intravenous, As needed, Starting on 11/19/24 at 0340, Until Tu11/22/24 at 1858, Routine, line care Linked Groups Order Group 1: Tiotropium [place] Monohydrate (Spiriva Respimat) 2.5 MCG/ACT inhaler 2 puffJump to med 2 puff, Inhalation, Daily, First dose on 11/19/24 at 0900, Until Discontinued And mometasone-formoterol (Dulera 100) 100-5 MCG/ACT inhaler 2 puffJump to med 2 puff, Inhalation, 2 times daily, First dose on 11/19/24 at 0900, Until Discontinued Group 2: Insert peripheral IV (CANCELED) Once, On 11/19/24 at 0341, For 1 occurrence And Saline lock IV (CANCELED) Once, On 11/19/24 at 0341, For 1 occurrence And sodium chloride 0.9 % flush 10 mLJump to med 10 mL, Intravenous, Every 12 hours, First dose on 11/19/24 at 0345, Until Discontinued, Routine And sodium chloride 0.9 % flush 10 mLJump to med 10 mL, Intravenous, As needed, Starting on 11/19/24 at 0340, Until Thu11/22/24 at 185, Routine, line care Group 3: glucose (Glutose) 40 % oral gel 15-30 grams of glucoseJump to med 15-30 grams of glucose, Sublingual, Every 15 min PRN, Starting on 11/19/24 at 0353, Until Thu11/22/24 at 1857, Routine, low blood sugar, per Hypoglycemia Prevention and Treatment protocol Or dextrose 10 % (D10W) bolus 125 mLJump to med 125 mL, Intravenous, Every 15 min PRN, Starting on 11/19/24 at 0353, Until Thu11/22/24 at 1857, Administer over 15 Minutes, Routine, low blood sugar BG 51-89 mg/dL Or dextrose 10 % (D10W) bolus 250 mLJump to med 250 mL, Intravenous, Every 15 min PRN, Starting on 11/19/24 at 0353, Until Thu11/22/24 at 1857, Administer over 15 Minutes, Routine, PRN low blood sugar BG =/<50 mg/dL Or glucagon (human recombinant) injection 1 mgJump to med 1 mg, Intramuscular, Every 15 min PRN, Starting on 11/19/24 at 0353, Until Thu11/22/24 at 1857, Routine, low blood sugar per Hypoglycemia Prevention and Treatment protocol Group 4: ondansetron ODT (Zofran-ODT) disintegrating tablet 4 mgJump to med 4 mg, Oral, Every 6 hours PRN, Starting on 11/20/24 at 0838, Until Thu11/22/24 at 1857, Routine, nausea, vomiting Or ondansetron (Zofran) injection 4 mgJump to med 4 mg, Intravenous, Every 6 hours PRN, Starting on Thu11/20/24 at 0838, Until Thu11/22/24 at 1857, Routine, vomiting, nausea Or ondansetron (Zofran) 4 MG/5ML solution 4 mgJump to med 4 mg, Oral, Every 6 hours PRN, Starting on Thu11/20/24 at 0838, Until Thu11/22/24 at 1857, Routine, nausea, vomiting documented in this encounter Additional Health Concerns Infection Onset Date Last Indicated Resolved Time 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, SURGICAL ASST Panic 10/26/2024 10/31/2024 Assessment Noted Time PHQ-9 Depression Total Score: 0 09/01/19 3:26 PM EDT A fall risk assessment has been complete d for the patient 11/10/2024 2:43 PM EDT A Body Mass Index follow-up plan has been documented for the patient 11/22/2024 4:27 PM EDT documented as of this encounter Care Teams [employer] Relationship Specialty Start Date End Date Laurie Gutierrez MD [address] [place] [address] PCP - General 12/09/23 Joshua Martínez MD [address] [place] [address] [phone] Consulting Physician Radiation Oncology 09/19/24 Paradise Pacheco, RN [facility] Registered Nurse 11/21/24 11/21/24 documented as of this encounter
--- OUTSIDE RECORDS SUMMARY | 2024-11-19 00:35 | XMS_ITS | Encounter Summary ---
Author Organization Healthcare Address [address] [place] [address] Care Team Providers Care Fondant Machine Operator Name Role Phone Laurie Gutierrez MD Primary Care Provider [phone] Joshua Martínez MD Unavailable Paradise Pacheco RN Unavailable Unavailab le Reason for Referral * Consultation (Routine) - Authorized Specialty Diagnoses / Procedures Referred By Mackenzie t Referred To Contact Family Medicine Diagnoses Type 2 diabetes mellitus with diabetic neuropathy, unspecified whether parts counterman insulin use (CMS/HCC) Alin Ivey MD [address] [place] [address] Phone: tel: fax: Referral ID Status Reason Start Date Expiration Date V isits Requested Visits Authorized [id number] Authorized 11/22/2024 05/24/2026 1 1 Reason for Visit * Reason Comments Rapid Heart Rate * Auth/Cert (Routine) Specialty Diagnoses / Procedures Referred By Mackenzie t Referred To Contact Diagnoses Atrial fibrillation with rapid ventricular response (CMS/HCC) afib rvr; hx head bleed from fall. Alin Ivey MD [address] [place] [address] Phone: tel: fax: [facility] A Emergency Department [address] [place] [address] Phone: tel: Referral ID Status Reason Start Date Expiration Date Visits Re quested Visits Authorized [id number] 1 1 Encounter Details Date Type Department Care Team (Latest Contact Info) Description 11/19/2024 12:35 AM EDT - 11/22/2024 4:58 PM EDT Hospital Encounter [facility] H Inpatient [address] [place] [address] Jose David Topete MD [address] [place] [address] Alin Ivey MD [address] [place] [address] Atrial fibrillation with rapid ventricular response (CMS/HCC) (Primary Dx); Small cell carcinoma of lung, unspecified laterality, unspecified part of lung; Type 2 diabetes mellitus with diabetic neuropathy, unspecified whether care home insulin use (CMS/HCC) Discharge Disposition: Home or [...] in a nursing home (including now)? No 11/21/2024 CAGE ASSESSMENT Answer [...] drink first t laurie in the morning ([employer]) to steady your nerves or to get [...] tablets by mouth every 6 hours. Under [place] law, monthly prescriptions (30 days) can be [...] times a day with meals. metoprolol tartrate (Lopressor) 50 MG tablet Take 1 tablet by mouth 2 times a day. 60 tablet 11/22/2024 montelukast (Singulair) 10 MG tablet Take 1 tablet by mouth nightly. mupirocin (Bactroban) 2 % ointment Apply on head 2 times a day 22 g 11/08/2024 nystatin (Mycostatin) 836674 UNIT/GM powder Apply on bottom 2 times [...] day with dinner. Take with food. rOPINIRole (Requip) 1 MG tablet Take 1 tablet by mouth 2 times a day. SITagliptin (Januvia) 50 MG tablet Take 1 tablet by mouth every morning. triamterene-hydr ochlorothiazide (Maxzide-25) 37.5-25 MG tablet Take 1 tablet by mouth every morning. Vitamin B-12 ER 1000 MCG tablet controlled-relea se Take 1 tablet by mouth Daily. documented as of this encounter Miscellaneous Notes * Zachary Ford Galilea Luis Angel Cantu - 11/22/2024 4:27 PM EDT Images from the original note were not included. [id number] Living with Lung Cancer When living with [...] not sure what to eat. This nutrition educator can teach you tips on how to [...] cancer, contact the following: ?? Lung Cancer [place] at www.lungcanceralliance.org or 962-205-8589 ?? [place] [employer] at www.cancer.org or 014-667-5884 ?? [place] Lung Association at lung.org or 272-062-1595 ?? National Cancer [place] at www.cancer.gov or 537-363-2863 Last Reviewed Date: 2022 00:00:00 ?? [employer]. All rights reserved. This information is not intended as a substitute for professional medical care. Always follow your healthcare professional's instructions. * Progress Notes - Talisha Mcnamara RN - 11/22/2024 1:28 PM EDT Case Management Discharge Note Teresa Urbina 63 y.o. female CSN: [id number] Admission: 11/19/2024 12:35 AM Primary Problem: Atrial fibrillation with rapid ventricular response (CMS/HCC) Primary Development Editor: Primary Caregiver: Self Assistance Available at Discharge: Current Outpatient/Agency/Support Group: infusion therapy, outpatient Availability of Care Givers (#Hours): 10-14 hours Family/Development Editor(s) Willingness Assessed to care for patient at home: Yes Family/Development Editor(s) Readiness Assessed to care for patient at home: Yes Housing Circumstances-Z Codes: Housing Circumstances (select all that apply): Low Income (101-300% Federal Poverty Guidlines) - Z596 Patient Referred to Financial or Community Resources: Discharge Facility/Level of Care Needs: Discharge Facility/Level of Care Needs: 2-[facility] Patient's Choice of Community Agency(s): Patient's Choice of Community Agency(s): [facility] Patient/Family Anticipated Services at Transition: Patient/Family Anticipated Services at Transition: education services, home health care, outpatientcare DME/Equipment Needed after Discharge: Equipment Currently Used at Home: walker, rolling, wheelchair, manual, commode chair Equipment Needed After Discharge: none Readmission Within the Last 30 Days: Readmission Within the Last 30 Days: current reason for admission unrelated to previous admission Medicare Documentation: [facility] [address] [facility] [address] Follow up Discharge Transportation: Transportation Anticipated: family or friend will provide Transportation Home at Discharge: Family/Friend will Provide Has discharge transport been arranged?: No Follow Up Transport: Transportation Needed to Follow up Appoinments: Family/Friend will Provide Additional Comments: Patient to be discharged home today. Patient is current with [email or web address]; CM updated. No new DME at this time. Family can provide transportation home. Talisha Mcnamara RN * Discharge Summary - Aaron Bowens MD - 11/22/2024 11:50 AM EDT Hospitalization Admit Date/Time: 11/19/2024 12:35 AM Admitting Attending: Alin Ivey Discharge Date: 11/22/2024 Discharge Attending Physician: Alin Ivey MD PCP name and Address: Laurie Gutierrez MD [address] [place] [address] Referring provider name and address: Nuria Lunsford PA [address] [place] [address] Chief Concern, Brief History of Present Illness, and Hospital Course History of Presenting Illness: Ms. 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 [...] UTI this prompted her to present to [facility]. On arrival she was found to be [...] tablets by mouth every 6 hours. Under [place] law, monthly prescriptions (30 days) can be [...] Breztri Aerosphere 160-9-4.8 MCG/ACT aerosol Generic drug: Pgmjvkz-Nbkhpimkukt-Mvsfxduuon Inhale 2 puffs 2 (two) times a [...] on head 2 times a day nystatin 427671 UNIT/GM powder Commonly known as: Mycostatin Apply [...] Your Medications These medications were sent to [facility] [place], [place] [facility] [address] [facility] [address] [facility] [address] metoprolol tartrate 50 MG tablet Discharge Diagnosis [...] Time Provider Department Center 11/29/2024 10:30 AM [facility] Vasquez 11/29/2024 11:00 AM Satnam Colvin MD HNR[facility]LES [facility] 11/29/2024 12:30 PM [facility] 1 INFUSION TREATMENT [id number] [facility] 11/30/2024 1:30 PM [facility] 1 INFUSION TREATMENT [id number] [facility] 12/01/2024 2:00 PM [facility] 1 INFUSION TREATMENT [id number] [facility] 12/06/2024 11:40 AM Haven Blum APRN [facility] 01/19/2025 9:30 AM GS [facility] 01/19/2025 10:45 AM Abhilash Bangura MD [facility] 03/08/2025 1:00 PM Teresita Oconnell MD [facility] Heart I Test Results Pending At [...] upper extremity elevated heels elevated legs elevated [place] chair Skin Protection: hydrocolloids used skin sealant/moisture [...] Note Teresa Urbina 63 y.o. female CSN: [id number] Admission: 11/19/2024 12:35 AM Primary Problem: Atrial fibrillation with rapid ventricular response (CMS/HCC) Tube Washer reviewed chart and spoke with patient to complete this Initial Case Management Assessment. PCP: Laurie Gutierrez MD Emergency Contact: Extended Emergency Contact Information Primary Emergency Contact: Zachary Urbina Mobile Relation: Son Preferred language: Pakistani Concessions Manager needed? No Secondary Emergency Contact: NicoleAurora Mobile Relation: Daughter Preferred language: Pakistani Concessions Manager needed? No Insurance: Primary Visit Coverage Payer Plan Sponsor Code Group Number Group Name [employer] [id number] Primary Visit Coverage Subscriber Subscriber ID Subscriber Name Subscriber SSN Subscriber Address [id number] TERESA URBINA [id number] [place] [address] Patient information: Primary Caregiver: Self Support System: Immediate family Daily Living Activities: Functional Status: Minimum assistance Living Arrangements: Alone Type of Residence: Private residence [address] [place] [address] Smoker in the Home?: N/A Current DME: [...] Health- Home Oxygen Living Will/Advance Directive/Power of Microbiology Director /Guardian: Have you reviewed your Advance Directive [...] Note Teresa Urbina 63 y.o. female CSN: [id number] Room/Bed 876/876A Nutrition evaluation type: assessment Reason [...] Supplemental oxygen O2 Delivery Method: Nasal cannula [place] Coma Scale Score: 15 Rosendo Scale Score: [...] Weight Evaluation: Extreme Obesity (BMI > 40) Strong Body Weight (kg): 61.3 Percent Strong Body Weight: 190 Adjusted Body Weight (kg): 75.2 Estimated Needs: Metabolic Cart Study Results: Current Nutrition Intake: Diet Order: Adult Diet Diet Texture: Regular Other Restrictions: (disposables) Percent Meals Eaten (%): 36% x 6 recorded meals Diet Experience and Nutrition History: Diet Education Provided: Will monitor Pertinent home medications: reviewed Congregational needs: Nutrition Focused Physical Exam: Physical exam [...] SURGERY TUBAL LIGATION N/A Tubal Ligation from [employer] TYMPANOSTOMY TUBE PLACEMENT N/A Ear Surgery Eustachian Tube from [employer] [3] 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 Tobacco Use Smoking status: [...] metoprolol tartrate, 50 mg, Oral, BID Tiotropium Cassandra Monohydrate, 2 puff, Inhalation, Daily AND mometasone- [...] Goal: Patient-Specific Goal (Individualized) Flowsheets (Taken 11/21/2024 4104) Patient/Family-Specific Goals (Include Timeframe): Pt will be [...] EDT 11/20/24 2348 Event/Notification Description Event Location [facility] and Room Number 876 Reason for Rapid Response Team notification mews Is the patient a DNR? No Type of Event PEWS/MEWS alert Method of Notification PEWS/MEWS alert Vitals Temp 37.4 ??C (99.3 ??F) Temp Source Axillary Heart Rate (!) 136 Resp 24 SpO2 100 % SUPERVISOR CUTTING AND BONING notified of mews alert--messaged primary RN who [...] EDT 11/20/24 1130 Event/Notification Description Event Location [facility] and Room Number 8w 876 Reason for Rapid Response Team notification decline Is the patient a DNR? No Type of Event Decline Type of Decline Cardiac Method of Notification Nurse (specify) (JOSE MARTIN Patel) Rapid Response Outcome Survival Yes Rapid Response Termination Due to Patient remained on floor 1130--Primary RN Amanda messaged SUPERVISOR CUTTING AND BONING about a vital sign alert on Mrs. Urbina. Pt's HR has been 140's-160's. 25 mg metoprolol was admin earlier without any changes. Pt has been normotensive, no changes in condition. Pt does not have a fever at this time. Team is aware, wanted to have SUPERVIS[employer] CUTTING [employer] BONING aware. Pt had recent SDH and is currently not receiving anticoagulation. During chart review, noted pt [id number] toprol xl daily. Messaged team (MD Garcia and MD Ivey). Mds plan is to give 50 mg at 1400 today, unless HR sustains higher and/or hypotension occurs. Primary RN satisfied with poc at this time.Primary RN to continue to monitor patient. Please notify MD and SUPERVISOR CUTTING [employer] BONING of any changes in patients condition and/or [...] fall who presents as a transfer from [facility] for afib w/ RVR, UTI. [...] UTI this prompted her to present to [facility]. On arrival she was found to be [...] fall who presents as a transfer from [facility] for afib w/ RVR, UTI. [...] UTI this prompted her to present to [facility]. On arrival she was found to be [...] mg, Oral, Every 6 hours scheduled, Under [place] law, monthly prescriptions (30 days) can be refilled at 25 days and three-month prescriptions (90 days) at 80 days. Please contact the insurance company with questions if refills are denied. atorvastatin (LIPITOR) 40 mg, Every evening benzonatate (TESSALON) 100 mg, Oral, 3 times daily PRN, Do not crush or chew. Lbkjgrr-Bzkdliliqgq-Pfweqyncxr (Breztri Aerosphere) 160-9-4.8 MCG/ACT aerosol 2 puffs, [...] 12 units and call provider. nystatin (Mycostatin) 240648 UNIT/GM powder Apply on bottom 2 times [...] Rate 70-80 on admission Plan: - Suspect superintendent drivers of afib w/rvr symptomatic anemia vs UTI [...] statin #Obesity (BMI 40.74) Electronically Signed by: Araon Bowens MD - 11/19/2024 - 4:14 AM [...] SURGERY TUBAL LIGATION N/A Tubal Ligation from [facility] TYMPANOSTOMY TUBE PLACEMENT N/A Ear Surgery Eustachian Tube from [employer] [3] Family History Problem Relation Name Age [...] and oriented to person, place, and time. [place] Coma Scale Score: 15 ED Course & [...] were ordered: ED Medication Administration from 11/18/2024 8638 to 11/19/2024 0343 Date/Time Order Dose Route [...] SURGERY TUBAL LIGATION N/A Tubal Ligation from [employer] TYMPANOSTOMY TUBE PLACEMENT N/A Ear Surgery Eustachian Tube from [employer] [3] Family History Problem Relation Name Age [...] [facility] [address] [facility]nd [place] [address] 11/29/2024 11:00 AM EDT Office Visit [facility] [address] [facility], [address]nd [place] [address] Satnam Colvin MD [address] [facility] [address] [place] [address] 11/29/2024 12:30 PM EDT Appointment [facility] 1 [address] [place] [address] 11/30/2024 1:30 PM EDT Appointment [facility] 1 [address] [place] [address] 12/01/2024 2:00 PM EDT Appointment [facility] 1 [address] [place] [address] 12/06/2024 11:40 AM EDT Appointment [facility] Radiation [address] [id number] [place] [address] Haven Blum, SHARDA [address] [facility] [address] [place] [address] 01/19/2025 9:30 AM EDT Appointment [facility] S Radiology [address] [place] [address] 01/19/2025 10:45 AM EDT Office Visit [facility] [address], [address] [place] [address] Abhilash Bangura MD [address] [place] [address] 03/08/2025 1:00 PM EDT Office Visit [facility] [place] [facility] [address] [place] [address] Teresita Oconnell MD [address] [place] [address] Scheduled Referrals Name Type Priority Associated Diagnoses Order Schedule Ambulatory referral to External PCP Outpatient Referral Routine Type 2 diabetes mellitus with diabetic neuropathy, unspecified whether parts counterman insulin use ([facility]) 1 Occurrences starting 11/22/2024 until 05/26/2026 documented [...] Comment 11/22/2024 11:52 AM EDT HEALTHCARE LAB Floor Molder ID Lisa Veliz 11/22/2024 11:52 AM EDT HEALTHCARE LAB Device ID [id number] 11/22/2024 11:52 AM EDT HEALTHCARE LAB Specimen Type POC Capillary 11/22/2024 11:52 AM EDT HEALTHCARE LAB Blood Capillary blood specimen / Unknown 11/22/2024 11:50 AM EDT 11/22/2024 11:52 AM EDT us Alin Ivey MD LAB POINT OF CARE TE ST DOCKED DEVICE UNSOLICITED RESULTS Final Result Performing Organization Address City/State/[facility] Co de Phone Number HEALTHCARE LAB [address] [place] [address] * Type and screen (11/22/2024 11:30 AM [...] TEST ORDERABLES Final Result Performing Organization Address City/[facility]/ZIP Co de Phone Number BLOOD BANK [address] [place] [address], * Prepare Leukocyte Reduced RBC: 1 Units, Irradiated, Leukocyte reduced (CMV reduced risk) (11/22/2024 10:58 AM EDT) Pathologist [facility] Product Code [id number] CH BLOO D BANK Dispense Status Transfused BLOOD BANK Blood Expiration Date [id number] BLOOD BANK Unit Number [id number] CH B LOOD BANK Product Blood Type 5100 BLOOD BANK Blood Type O+ BLOOD BANK Crossmatch Compatible BLOOD BANK Other us Alin Ivey MD BLOOD BANK PRODUCT ORDERABLES F inal Result Performing Organization Address [facility] Co de Phone Number BLOOD BANK [address] [place] [address], * (ABNORMAL) POCT glucose meter (11/22/2024 7:28 AM EDT) Pathologist [facility] POCT Glucose 199(H) 74 - 99 mg/dL [...] 11/22/2024 7:30 AM EDT [facility] Floor Molder ID Lisa Veliz 11/22/2024 7:30 AM EDT [facility] Device ID [id number] 11/22/2024 7:30 AM EDT [facility] Specimen Type POC Capillary 11/22/2024 7:30 AM EDT HEALTHCARE LAB Blood Capillary blood specimen / Unknown 11/22/2024 7:28 AM EDT 11/22/2024 7:30 AM EDT us Alin Ivey MD LAB POINT OF CARE TE ST DOCKED DEVICE UNSOLICITED RESULTS Final Result [facility] [address] [place] [address] * (ABNORMAL) Basic metabolic panel (11/22/2024 2:44 AM EDT) Glucose, Plasma 210(H) 74 - 99 mg/dL 11/22/2024 3:19 AM EDT [facility] BUN, Plasma 6(L) 8 - 23 mg/dL 11/22/2024 3:19 AM EDT [facility] Creatinine, Plasma 0.61 0.60 - 1.10 mg/dL 11/22/2024 3:19 AM EDT [facility] BUN/Creatinine Ratio 10 11/22/2024 3:19 AM EDT [facility] Sodium, Plasma 141 136 - 145 mmol/L 11/22/2024 3:19 AM EDT [facility] Potassium, Plasma 3.5(L) 3.6 - 4.9 mmol/L 11/22/2024 3:19 AM EDT [facility] Chloride, Plasma 104 97 - 107 mmol/L 11/22/2024 3:19 AM EDT [facility] CO2, Plasma 24 22 - 29 mmol/L 11/22/2024 3:19 AM EDT [facility] Anion Gap 13 6 - 16 mmol/L 11/22/2024 3:19 AM EDT [facility] Total Calcium, Plasma 8.0(L) 8.9 - 10.2 mg/dL 11/22/2024 3:19 AM EDT [facility] eGFRcr 100.6 mL/min/1.7 3m*2 11/22/2024 3:19 AM EDT [facility] Comment:Reported eGFRcr in m L/min/1.73m2 is based the CKD-EPI 2020 equation that does not use a race coefficient. Blood Venous blood specimen / Unknown Venipuncture / Unknown 11/22/2024 2:44 AM EDT 11/22/2024 2:49 AM EDT Alin Ivey MD LAB BLOOD ORDERABLES Final Resu lt [facility] [address] [place] [address] * (ABNORMAL) CBC W/O Differential (11/22/2024 2:44 AM EDT) WBC Count 6.07 3.70 - 10.30 10*3/uL LAB HEMATOLOGY METHOD 11/22/2024 3:04 AM EDT [facility] RBC Count 2.45(L) 3.90 - 5.20 10*6/uL LAB HEMATOLOGY METHOD 11/22/2024 3:04 AM EDT [facility] HGB 7.3(L) 11.2 - 15.7 g/dL LAB HEMATOLOGY METHOD 11/22/2024 3:04 AM EDT [facility] HCT 23.3(L) 34.0 - 45.0 % LAB HEMATOLOGY METHOD 11/22/2024 3:04 AM EDT [facility] Platelet Count 32(L) 155 - 369 10*3/uL LAB HEMATOLOGY METHOD 11/22/2024 3:04 AM EDT [facility] MCV 95 79 - 98 fL LAB HEMATOLOGY METHOD 11/22/2024 3:04 AM EDT [facility] MCH 29.8 26.0 - 32.0 pg LAB HEMATOLOGY METHOD 11/22/2024 3:04 AM EDT [facility] MCHC 31.3 30.7 - 35.5 g/dL LAB HEMATOLOGY METHOD 11/22/2024 3:04 AM EDT [facility] RDW 20.4(H) 11.5 - 14.5 % LAB HEMATOLOGY METHOD 11/22/2024 3:04 AM EDT [facility] MPV 11.6 8.8 - 12.5 fL LAB HEMATOLOGY METHOD 11/22/2024 3:04 AM EDT [facility] nRBC 0.7(H) <=0.0 per 100 WBCs LAB HEMATOLOGY METHOD 11/22/2024 3:04 AM EDT [facility] Blood Venous blood specimen / Unknown Venipuncture / Unknown 11/22/2024 2:44 AM EDT 11/22/2024 2:50 AM EDT us Alin Ivey MD LAB BLOOD ORDERABLES Final Resu lt [facility] [address] [place] [address] * (ABNORMAL) POCT glucose meter (11/21/2024 7:48 [...] Comment 11/21/2024 7:50 PM EDT HEALTHCARE LAB Floor Molder ID Carlos Nolasco 7:50 PM EDT HEALTHCARE LAB Device ID [id number] 11/21/2024 7:50 PM EDT [facility] Specimen Type POC Capillary 11/21/2024 7:50 PM EDT [facility] Blood Capillary blood specimen / Unknown 11/21/2024 7:48 PM EDT 11/21/2024 7:50 PM EDT us Alin Ivey MD LAB POINT OF CARE TE ST DOCKED DEVICE UNSOLICITED RESULTS Final Result Performing Organization Address City/[facility]/ZIP Co de Phone Number [facility] [address] [place] [address] * (ABNORMAL) POCT glucose meter (11/21/2024 5:04 [...] Comment 11/21/2024 5:05 PM EDT HEALTHCARE LAB Floor Molder ID Holely Schultz 025 5:05 PM EDT HEALTHCARE LAB Device ID [id number] 11/21/2024 5:05 PM EDT HEALTHCARE LAB Specimen Type POC Capillary 11/21/2024 5:05 PM EDT HEALTHCARE LAB Blood Capillary blood specimen / Unknown 11/21/2024 5:04 PM EDT 11/21/2024 5:05 PM EDT Alin Ivey MD LAB POINT OF CARE TE ST DOCKED DEVICE UNSOLICITED RESULTS Final Result Performing Organization Address City/[facility] Co de Phone Number [facility] [address] [place] [address] * (ABNORMAL) POCT glucose meter (11/21/2024 11:51 [...] Comment 11/21/2024 11:52 AM EDT HEALTHCARE LAB Floor Molder ID Holley Schultz 025 11:52 AM EDT HEALTHCARE LAB Device ID [id number] 11/21/2024 11:52 AM EDT [facility] Specimen Type POC Capillary 11/21/2024 11:52 AM EDT HEALTHCARE LAB Blood Capillary blood specimen / Unknown 11/21/2024 11:51 AM EDT 11/21/2024 11:52 AM EDT us Alin Ivey MD LAB POINT OF CARE TE ST DOCKED DEVICE UNSOLICITED RESULTS Final Result Performing Organization Address City/[facility]/ZIP Co de Phone Number [facility] [address] [place] [address] * (ABNORMAL) POCT glucose meter (11/21/2024 7:56 [...] Comment 11/21/2024 7:57 AM EDT HEALTHCARE LAB Floor Molder ID Holley Schultz 025 7:57 AM EDT HEALTHCARE LAB Device ID [id number] 11/21/2024 7:57 AM EDT HEALTHCARE LAB Specimen Type POC Capillary 11/21/2024 7:57 AM EDT HEALTHCARE LAB Blood Capillary blood specimen / Unknown 11/21/2024 7:56 AM EDT 11/21/2024 7:57 AM EDT us Alin Ivey MD LAB POINT OF CARE TE ST DOCKED DEVICE UNSOLICITED RESULTS Final Result Performing Organization Address City/State/[facility] Co de Phone Number HEALTHCARE LAB [address] [place] [address] * (ABNORMAL) Basic Metabolic Panel, Plasma (11/21/2024 12:47 AM EDT) Glucose, Plasma 195(H) 74 - 99 mg/dL 11/21/2024 2:26 AM EDT [facility] BUN, Plasma 7(L) 8 - 23 mg/dL 11/21/2024 2:26 AM EDT [facility] Creatinine, Plasma 0.74 0.60 - 1.10 mg/dL 11/21/2024 2:26 AM EDT [facility] BUN/Creatinine Ratio 9 11/21/2024 2:26 AM EDT [facility] Sodium, Plasma 140 136 - 145 mmol/L 11/21/2024 2:26 AM EDT [facility] Potassium, Plasma 3.4(L) 3.6 - 4.9 mmol/L 11/21/2024 2:26 AM EDT [facility] Chloride, Plasma 102 97 - 107 mmol/L 11/21/2024 2:26 AM EDT [facility] CO2, Plasma 25 22 - 29 mmol/L 11/21/2024 2:26 AM EDT [facility] Anion Gap 13 6 - 16 mmol/L 11/21/2024 2:26 AM EDT [facility] Total Calcium, Plasma 8.1(L) 8.9 - 10.2 mg/dL 11/21/2024 2:26 AM EDT [facility] eGFRcr 91.0 mL/min/1.7 3m*2 11/21/2024 2:26 AM EDT [facility] Comment:Reported eGFRcr in m L/min/1.73m2 is based the CKD-EPI 2020 equation that does not use a race coefficient. Blood Venous blood specimen / Unknown Venipuncture / Unknown 11/21/2024 12:47 AM EDT 11/21/2024 1:43 AM EDT us Alin Ivey MD LAB BLOOD ORDERABLES Final Resu lt [facility] [address] [place] [address] * (ABNORMAL) CBC W/O Differential (11/21/2024 12:47 AM EDT) WBC Count 7.16 3.70 - 10.30 10*3/uL LAB HEMATOLOGY METHOD 11/21/2024 1:45 AM EDT [facility] RBC Count 2.52(L) 3.90 - 5.20 10*6/uL LAB HEMATOLOGY METHOD 11/21/2024 1:45 AM EDT [facility] HGB 7.5(L) 11.2 - 15.7 g/dL LAB HEMATOLOGY METHOD 11/21/2024 1:45 AM EDT [facility] HCT 23.5(L) 34.0 - 45.0 % LAB HEMATOLOGY METHOD 11/21/2024 1:45 AM EDT [facility] Platelet Count 37(L) 155 - 369 10*3/uL LAB HEMATOLOGY METHOD 11/21/2024 1:45 AM EDT [facility] MCV 93 79 - 98 fL LAB HEMATOLOGY METHOD 11/21/2024 1:45 AM EDT [facility] MCH 29.8 26.0 - 32.0 pg LAB HEMATOLOGY METHOD 11/21/2024 1:45 AM EDT [facility] MCHC 31.9 30.7 - 35.5 g/dL LAB HEMATOLOGY METHOD 11/21/2024 1:45 AM EDT [facility] RDW 20.9(H) 11.5 - 14.5 % LAB HEMATOLOGY METHOD 11/21/2024 1:45 AM EDT [facility] MPV 11.0 8.8 - 12.5 fL LAB HEMATOLOGY METHOD 11/21/2024 1:45 AM EDT [facility] nRBC 0.8(H) <=0.0 per 100 WBCs LAB HEMATOLOGY METHOD 11/21/2024 1:45 AM EDT [facility] Blood Venous blood specimen / Unknown Venipuncture / Unknown 11/21/2024 12:47 AM EDT 11/21/2024 1:36 AM EDT us Alin Ivey MD LAB BLOOD ORDERABLES Final Resu lt [facility] [address] [place] [address] * (ABNORMAL) POCT glucose meter (11/20/2024 8:22 [...] Comment 11/20/2024 8:24 PM EDT [facility] Floor Molder ID Teo Johnsonzo 11/20/2024 8:24 PM EDT [facility] Device ID [id number] 11/20/2024 8:24 PM EDT [facility] Specimen Type POC Capillary 11/20/2024 8:24 PM EDT [facility] Blood Capillary blood specimen / Unknown 11/20/2024 8:22 PM EDT 11/20/2024 8:24 PM EDT Alin Ivey MD LAB POINT OF CARE TE ST DOCKED DEVICE UNSOLICITED RESULTS Final Result Performing Organization Address City/[facility]/ZIP Co de Phone Number [facility]ALTH[facility] [address] [place] [address] * (ABNORMAL) POCT glucose meter (11/20/2024 4:58 [...] Comment 11/20/2024 5:00 PM EDT [facility] LAB Floor Molder ID Holley Schultz 025 5:00 PM EDT [facility] Device ID [id number] 11/20/2024 5:00 PM EDT [facility] Specimen Type POC Capillary 11/20/2024 5:00 PM EDT [facility] Blood Capillary blood specimen / Unknown 11/20/2024 4:58 PM EDT 11/20/2024 5:00 PM EDT us Alin Ivey MD LAB POINT OF CARE TE ST DOCKED DEVICE UNSOLICITED RESULTS Final Result Performing Organization Address City/[facility]/ZIP Co de Phone Number [facility] [address] [place] [address] * (ABNORMAL) POCT glucose meter (11/20/2024 12:19 [...] 11/20/2024 12:20 PM EDT [facility] Floor Molder ID Holley Schultz 025 12:20 PM EDT [facility] Device ID [id number] 11/20/2024 12:20 PM EDT [facility] Specimen Type POC Capillary 11/20/2024 12:20 PM EDT [facility] Blood Capillary blood specimen / Unknown 11/20/2024 12:19 PM EDT 11/20/2024 12:20 PM EDT Alin Ivey MD LAB POINT OF CARE TE ST DOCKED DEVICE UNSOLICITED RESULTS Final Result Performing Organization Address City/State/[facility] Co de Phone Number [facility] [address] [place] [address] * (ABNORMAL) POCT glucose meter (11/20/2024 8:01 AM EDT) [facility] POCT Glucose 218(H) 74 - 99 mg/dL [...] Comment 11/20/2024 8:03 AM EDT [facility] LAB Floor Molder ID Holley Schultz 025 8:03 AM EDT [facility] Device ID [id number] 11/20/2024 8:03 AM EDT [facility] Specimen Type POC Capillary 11/20/2024 8:03 AM EDT [facility] Blood Capillary blood specimen / Unknown 11/20/2024 8:01 AM EDT 11/20/2024 8:03 AM EDT Alin Ivey MD LAB POINT OF CARE TE ST DOCKED DEVICE UNSOLICITED RESULTS Final Result Performing Organization Address City/[facility]/ZIP Co de Phone Number [facility] [address] [place] [address] * ECG Adult (11/20/2024 7:20 AM EDT) EKG DIAGNOSIS CLASS Abnormal MUSE ECG Ventricular Rate 148 BPM MUSE ECG Atrial Rate 340 BPM MUSE ECG QRSD Interval 90 ms MUSE ECG QT Interval 298 ms MUSE ECG QTC Interval 467 ms MUSE ECG P [place] 110 degrees MUSE ECG R [place] 16 degrees MUSE ECG T Wave [place] 82 degrees MUSE ECG Diagnosis Atrial flutter with variable AV block MUSE ECG Diagnosis Nonspecific ST and T wave abnormality MUSE ECG Diagnosis Abnormal ECG MUSE ECG Diagnosis Compared to last ECG MUSE ECG Diagnosis atrial flutter has replaced sinus rhythm MUSE ECG Diagnosis MUSE ECG Diagnosis Confirmed by Leeroy Herbert ([id number]) on 11/20/2024 12:49:05 PM MUSE ECG 11/20/2024 7:20 AM EDT 11/20/2024 12:49 PM EDT Alin Ivey MD ECG ORDERABLES Final Result Performing Organization Address [facility] Co de Phone Number MUSE ECG * (ABNORMAL) Hemoglobin and Hematocrit, Blood (11/20/2024 12:57 AM EDT) HGB 7.9(L) 11.2 - 15.7 g/dL LAB HEMATOLOGY METHOD 11/20/2024 1:18 AM EDT [facility] HCT 24.8(L) 34.0 - 45.0 % LAB HEMATOLOGY METHOD 11/20/2024 1:18 AM EDT [facility] Blood Venous blood specimen / Unknown Venipuncture / Unknown 11/20/2024 12:57 AM EDT 11/20/2024 1:10 AM EDT Alin Ivey MD LAB BLOOD ORDERABLES Final Resu lt [facility] [address] [place] [address] * (ABNORMAL) CBC and Differential (11/20/2024 12:57 AM EDT) WBC Count 5.47 3.70 - 10.30 10*3/uL LAB HEMATOLOGY METHOD 11/20/2024 2:38 AM EDT [facility] RBC Count 2.71(L) 3.90 - 5.20 10*6/uL LAB HEMATOLOGY METHOD 11/20/2024 2:38 AM EDT [facility] HGB 7.9(L) 11.2 - 15.7 g/dL LAB HEMATOLOGY METHOD 11/20/2024 2:38 AM EDT [facility] HCT 24.8(L) 34.0 - 45.0 % LAB HEMATOLOGY METHOD 11/20/2024 2:38 AM EDT [facility] Platelet Count 44(L) 155 - 369 10*3/uL LAB HEMATOLOGY METHOD 11/20/2024 2:38 AM EDT [facility] MCV 92 79 - 98 fL LAB HEMATOLOGY METHOD 11/20/2024 2:38 AM EDT [facility] Comment:Results inconsistent with previous lab findings. MCH 29.2 26.0 - 32.0 pg LAB HEMATOLOGY METHOD 11/20/2024 2:38 AM EDT [facility] MCHC 31.9 30.7 - 35.5 g/dL LAB HEMATOLOGY METHOD 11/20/2024 2:38 AM EDT [facility] RDW 20.9(H) 11.5 - 14.5 % LAB HEMATOLOGY METHOD 11/20/2024 2:38 AM EDT [facility] MPV 10.3 8.8 - 12.5 fL LAB HEMATOLOGY METHOD 11/20/2024 2:38 AM EDT [facility] nRBC 1.3(H) <=0.0 per 100 WBCs LAB HEMATOLOGY METHOD 11/20/2024 2:38 AM EDT [facility] Differential Type Automated LAB HEMATOLOGY METHOD 11/20/2024 2:38 AM EDT [facility] Neutrophils % 70 % LAB HEMATOLOGY METHOD 11/20/2024 2:38 AM EDT [facility] Lymphocytes % 14 % LAB HEMATOLOGY METHOD 11/20/2024 2:38 AM EDT [facility] Monocytes % 7 % LAB HEMATOLOGY METHOD 11/20/2024 2:38 AM EDT [facility] Eosinophils % 3 % LAB HEMATOLOGY METHOD 11/20/2024 2:38 AM EDT [facility] Basophils % 1 % LAB HEMATOLOGY METHOD 11/20/2024 2:38 AM EDT [facility] Immature Granulocytes % 5 % LAB HEMATOLOGY METHOD 11/20/2024 2:38 AM EDT [facility] Neutrophils Absolute 3.82 1.60 - 6.10 10*3/uL LAB HEMATOLOGY METHOD 11/20/2024 2:38 AM EDT [facility] Lymphocytes Absolute 0.75(L) 1.20 - 3.90 10*3/uL LAB HEMATOLOGY METHOD 11/20/2024 2:38 AM EDT [facility] Monocytes Absolute 0.39 0.30 - 0.90 10*3/uL LAB HEMATOLOGY METHOD 11/20/2024 2:38 AM EDT [facility] Eosinophils Absolute 0.16 0.00 - 0.50 10*3/uL LAB HEMATOLOGY METHOD 11/20/2024 2:38 AM EDT [facility] Basophils Absolute 0.07 0.00 - 0.10 10*3/uL LAB HEMATOLOGY METHOD 11/20/2024 2:38 AM EDT [facility] Immature Granulocytes Absolute 0.28(H) 0.00 - 0.06 10*3/uL LAB HEMATOLOGY METHOD 11/20/2024 2:38 AM EDT [facility] Blood Venous blood specimen / Unknown Venipuncture / Unknown 11/20/2024 12:57 AM EDT 11/20/2024 1:10 AM EDT Narrative [facility] - 11/20/2024 2:38 AM EDT Therapeutic decision making should be based on absolute values, rather than percentages. us Alin Ivey MD LAB BLOOD ORDERABLES Final Resu lt [facility] [address] [place] [address] * (ABNORMAL) Magnesium, Plasma (11/20/2024 12:57 AM EDT) Magnesium, Plasma 1.7(L) 1.9 - 2.4 mg/dL 11/20/2024 1:39 AM EDT [facility] Blood Venous blood specimen / Unknown Venipuncture / Unknown 11/20/2024 12:57 AM EDT 11/20/2024 1:10 AM EDT us Alin Ivey MD LAB BLOOD ORDERABLES Final Resu lt Performing Organization Address [facility] Co de Phone Number [facility] [address] [place] [address] * (ABNORMAL) Phosphorus, Plasma (11/20/2024 12:57 AM EDT) Phosphorus, Plasma 2.1(L) 2.5 - 4.5 mg/dL 11/20/2024 1:39 AM EDT [facility] Blood Venous blood specimen / Unknown Venipuncture / Unknown 11/20/2024 12:57 AM EDT 11/20/2024 1:10 AM EDT us Alin Ivey MD LAB BLOOD ORDERABLES Final Resu lt Performing Organization Address [facility] de Phone Number [facility] [address] [place] [address] * (ABNORMAL) Basic Metabolic Panel, Plasma (11/20/2024 12:57 AM EDT) Glucose, Plasma 160(H) 74 - 99 mg/dL 11/20/2024 1:39 AM EDT [facility] BUN, Plasma 10 8 - 23 mg/dL 11/20/2024 1:39 AM EDT [facility] Creatinine, Plasma 0.75 0.60 - 1.10 mg/dL 11/20/2024 1:39 AM EDT [facility] BUN/Creatinine Ratio 13 11/20/2024 1:39 AM EDT [facility] Sodium, Plasma 137 136 - 145 mmol/L 11/20/2024 1:39 AM EDT [facility] Potassium, Plasma 3.4(L) 3.6 - 4.9 mmol/L 11/20/2024 1:39 AM EDT [facility] Chloride, Plasma 100 97 - 107 mmol/L 11/20/2024 1:39 AM EDT [facility] CO2, Plasma 24 22 - 29 mmol/L 11/20/2024 1:39 AM EDT [facility] Anion Gap 13 6 - 16 mmol/L 11/20/2024 1:39 AM EDT [facility] Total Calcium, Plasma 8.4(L) 8.9 - 10.2 mg/dL 11/20/2024 1:39 AM EDT [facility] eGFRcr 89.6 mL/min/1.7 3m*2 11/20/2024 1:39 AM EDT [facility] Comment:Reported eGFRcr in m L/min/1.73m2 is based the CKD-EPI 2020 equation that does not use a race coefficient. Blood Venous blood specimen / Unknown Venipuncture / Unknown 11/20/2024 12:57 AM EDT 11/20/2024 1:10 AM EDT us Alin Ivey MD LAB BLOOD ORDERABLES Final Resu lt [facility] [address] [place] [address] * (ABNORMAL) POCT glucose meter (11/19/2024 9:42 PM EDT) POCT Glucose 186(H) 74 - 99 mg/dL 11/19/2024 9:44 PM EDT [facility] Comment:Accuracy of a glucos e result [...] Comment 11/19/2024 9:44 PM EDT [facility]ARE LAB Floor Molder ID Wilfredo Johnson 11/19/2024 9:44 PM EDT [facility] Device ID [id number] 11/19/2024 9:44 PM EDT [facility] Specimen Type POC Capillary 11/19/2024 9:44 PM EDT [facility] Blood Capillary blood specimen / Unknown 11/19/2024 9:42 PM EDT 11/19/2024 9:44 PM EDT Alin Ivey MD LAB POINT OF CARE TE ST DOCKED DEVICE UNSOLICITED RESULTS Final Result Performing Organization Address City/[facility]/ZIP Co de Phone Number [facility] [address] [place] [address] * Wilbur auris Surveillance by PCR (11/19/2024 7:58 PM EDT) [facility] Wilbur auris PCR Result Not Detected Not Detected 11/20/2024 1:[address] [facility] Swab (Axilla and Groin) Non-blood Collection / Unknown 11/19/2024 7:58 PM EDT 11/19/2024 8:33 PM EDT Narrative [facility] - 11/20/2024 1:19 PM EDT This PCR assay was developed and its performance characteristics determined by [facility] as appropriate for clinical purposes. This assay has not been cleared or approved by the FDA, but is performed in a CLIA regulated laboratory that is qualified to perform high-complexity testing. us Alin Ivey MD LAB MICROBIOLOGY - GENERAL ORDTracy NAYAK Final Result Performing Organization Address City/[facility] Co de Phone Number [facility] [address] [place] [address] * (ABNORMAL) POCT glucose meter (11/19/2024 4:35 PM EDT) [facility] POCT Glucose 176(H) 74 - 99 mg/dL 11/19/2024 4:36 PM EDT [facility] Comment:Accuracy of a glucos e [...] for testing. Comment 11/19/2024 4:36 PM EDT [facility] Floor Molder ID Bi Mascorro 025 4:36 PM EDT HEALTH[facility]ARE LAB Device ID [id number] 11/19/2024 4:36 PM EDT [facility] Specimen Type POC Capillary 11/19/2024 4:36 PM EDT [facility] Blood Capillary blood specimen / Unknown 11/19/2024 4:35 PM EDT 11/19/2024 4:36 PM EDT us Alin Ivey MD LAB POINT OF CARE TE ST DOCKED DEVICE UNSOLICITED RESULTS Final Result Performing Organization Address City/[facility] Co de Phone Number [facility]ARE LAB [address] [place] [address] * (ABNORMAL) Hemoglobin and Hematocrit, Blood (11/19/2024 4:18 PM EDT) [facility] HGB 8.2(L) 11.2 - 15.7 g/dL LAB HEMATOLOGY METHOD 11/19/2024 4:23 PM EDT [facility] HCT 25.7(L) 34.0 - 45.0 % LAB HEMATOLOGY METHOD 11/19/2024 4:23 PM EDT [facility] Blood Venous blood specimen / Unknown Venipuncture / Unknown 11/19/2024 4:18 PM EDT 11/19/2024 4:21 PM EDT Result Arlet Ivey MD LAB BLOOD ORDERABLES Final Resu lt Performing Organization Address City/[facility]/ZIP Co de Phone Number [facility] [address] [place] [address] * Transfuse RBC (11/19/2024 4:13 PM EDT) [...] Comment 11/19/2024 2:29 PM EDT HEALTHCARE LAB Floor Molder ID Bi Mascorro 025 2:29 PM EDT [facility]ALTH[facility]ARE LAB Device ID [id number] 11/19/2024 2:29 PM EDT [facility] LAB Specimen Type POC Capillary 11/19/2024 2:29 PM EDT [facility] Blood Capillary blood specimen / Unknown 11/19/2024 2:27 PM EDT 11/19/2024 2:29 PM EDT Alin Ivey MD LAB POINT OF CARE TE ST DOCKED DEVICE UNSOLICITED RESULTS Final Result Performing Organization Address City/State/[facility] Co de Phone Number [facility] [address] [place] [address] * Prepare Leukocyte Reduced RBC: 2 Units (11/19/2024 11:58 AM EDT) Pathologist [facility] Product Code [id number] CH BLOO D BANK Dispense Status Transfused BLOOD BANK Blood Expiration Date [id number] BLOOD BANK Unit Number [id number] CH B LOOD BANK Product Blood Type 5100 BLOOD BANK Blood Type O+ CH BLOOD BANK Crossmatch Compatible CH BLOOD BANK Product Code [id number] CH BLOO D BANK Dispense Status Transfused BLOOD BANK Blood Expiration Date [id number] BLOOD BANK Unit Number [id number] CH B LOOD BANK Product Blood Type 5100 CH BLOOD BANK Blood Type O+ CH BLOOD BANK Crossmatch Compatible BLOOD BANK Other us Alin Ivey MD BLOOD BANK PRODUCT ORDERABLES F inal Result Performing Organization Address [facility] Co de Phone Number BLOOD BANK [address] * (ABNORMAL) Hemoglobin and Hematocrit, Blood (11/19/2024 11:44 AM EDT) Pathologist [facility] HGB 6.1(LL) 11.2 - 15.7 g/dL LAB HEMATOLOGY METHOD 11/19/2024 11:48 AM EDT [facility] HCT 19.1(LL) 34.0 - 45.0 % LAB HEMATOLOGY METHOD 11/19/2024 11:48 AM EDT [facility] Blood Venous blood specimen / Unknown Venipuncture / Unknown 11/19/2024 11:44 AM EDT 11/19/2024 11:45 AM EDT Alin Ivey MD LAB BLOOD ORDERABLES Final Resu lt Performing Organization Address [facility] Co de Phone Number [facility] [address] [place] [address] * (ABNORMAL) POCT glucose meter (11/19/2024 11:40 AM EDT) [facility] POCT Glucose 175(H) 74 - 99 mg/dL [...] Comment 11/19/2024 11:47 AM EDT [facility]ARE LAB Floor Molder ID Bi Mascorro 025 11:47 AM EDT [facility] LAB Device ID [id number] 11/19/2024 11:47 AM EDT [facility] Specimen Type POC Capillary 11/19/2024 11:47 AM EDT [facility] Blood Capillary blood specimen / Unknown 11/19/2024 11:40 AM EDT 11/19/2024 11:47 AM EDT Alin Ivey MD LAB POINT OF CARE TE ST DOCKED DEVICE UNSOLICITED RESULTS Final Result [facility] [address] [place] [address] * ECG Adult (11/19/2024 8:09 AM EDT) EKG DIAGNOSIS CLASS Borderline Normal MUSE ECG Ventricular Rate 75 BPM MUSE ECG Atrial Rate 75 BPM MUSE ECG MD Interval 134 ms MUSE ECG QRSD Interval 102 ms MUSE ECG QT Interval 404 ms MUSE ECG QTC Interval 451 ms MUSE ECG P [place] 66 degrees MUSE ECG R [place] 13 degrees MUSE ECG T Wave [place] 45 degrees MUSE ECG Diagnosis Sinus rhythm with blocked premature atrial complexes MUSE ECG Diagnosis Otherwise normal ECG MUSE ECG Diagnosis Compared to last ECG MUSE ECG Diagnosis Sinus rhythm has replaced atrial fibrillation MUSE ECG Diagnosis Confirmed by Leeroy Herbert ([id number]) on 11/19/2024 11:36:19 AM MUSE ECG 11/19/2024 8:09 AM EDT 11/19/2024 11:36 AM EDT Alin Ivey MD ECG ORDERABLES Final Result MUSE ECG * (ABNORMAL) POCT glucose meter (11/19/2024 7:42 AM EDT) Pathologist [facility] POCT Glucose 165(H) 74 - 99 mg/dL [...] 11/19/2024 7:45 AM EDT [facility] Floor Molder ID Cecilia Arroyon 7:45 AM EDT [facility] Device ID [id number] 11/19/2024 7:45 AM EDT [facility] Specimen Type POC Capillary 11/19/2024 7:45 AM EDT [facility] Blood Capillary blood specimen / Unknown 11/19/2024 7:42 AM EDT 11/19/2024 7:45 AM EDT Alin Ivey MD LAB POINT OF CARE TE ST DOCKED DEVICE UNSOLICITED RESULTS Final Result Performing Organization Address City/[facility]/ZIP Co de Phone Number [facility] [address] [place] [address] * (ABNORMAL) POCT glucose meter (11/19/2024 6:11 AM EDT) [facility] POCT Glucose 159(H) 74 - 99 mg/dL [...] Comment 11/19/2024 6:14 AM EDT HEALTHCARE LAB Floor Molder ID Litzy Powell 025 6:14 AM EDT [facility]ALTH[facility]ARE LAB Device ID [id number] 11/19/2024 6:14 AM EDT [facility] LAB Specimen Type POC Capillary 11/19/2024 6:14 AM EDT [facility] Blood Capillary blood specimen / Unknown 11/19/2024 6:11 AM EDT 11/19/2024 6:14 AM EDT Alin Ivey MD LAB POINT OF CARE TE ST DOCKED DEVICE UNSOLICITED RESULTS Final Result [facility] [address] [place] [address] * Transfuse RBC (11/19/2024 5:27 AM EDT) [...] Comment 11/19/2024 4:06 AM EDT HEALTHCARE LAB Floor Molder ID Lashanda Stearns 11/20/19 4:06 AM EDT [facility]ALTH[facility] LAB Device ID [id number] 11/19/2024 4:06 AM EDT [facility] Specimen Type POC Capillary 11/19/2024 4:06 AM EDT [facility] Blood Capillary blood specimen / Unknown 11/19/2024 4:05 AM EDT 11/19/2024 4:06 AM EDT us Alin Ivey MD LAB POINT OF CARE TE ST DOCKED DEVICE UNSOLICITED RESULTS Final Result Performing Organization Address [facility]/ZIP Co de Phone Number [facility] [address] [place] [address] * Lactate, venous (11/19/2024 3:59 AM EDT) [facility] Lactate, Venous, Whole Blood 1.6 0.5 - 2.2 mmol/L LAB HEMATOLOGY METHOD 11/19/2024 4:08 AM EDT [facility] Blood Venous blood specimen / Unknown Venipuncture / Unknown 11/19/2024 3:59 AM EDT 11/19/2024 4:07 AM EDT us Jose David Topete MD LAB BLOOD ORDERABLES Final Resu lt Performing Organization Address City/[facility]/ZIP Co de Phone Number [facility] [address] [place] [address] * Prepare Leukocyte Reduced RBC: 1 Units (11/19/2024 3:38 AM EDT) Product Code [id number] BLOO D BANK Dispense Status Transfused BLOOD BANK Blood Expiration Date [id number] BLOOD BANK Unit Number [id number] B LOOD BANK Product Blood Type 5100 BLOOD BANK Blood Type O+ BLOOD BANK Crossmatch Compatible BLOOD BANK Other Jose David Topete MD BLOOD BANK PRODUCT ORDERABLES F inal Result Performing Organization Address [facility] Co de Phone Number BLOOD BANK [address] * Urine Meek Panel (11/19/2024 3:37 AM EDT) Extra Reflex urine culture not indicated 11/19/2024 12:[address] [facility] Comment: Previously prelim verified as Specimen evaluation [...] ORDERABLES Final Resu lt Performing Organization Address [facility]/ZIP Co de Phone Number [facility] [address] [place] [address] * (ABNORMAL) Urinalysis with reflex microscopic (Culture NOT Included) (11/19/2024 3:37 AM EDT) Color, Urine Yellow LAB URINALYSIS - AUTOMATED METHOD 11/19/2024 4:09 AM EDT [facility] Clarity, Urine Clear LAB URINALYSIS - AUTOMATED METHOD 11/19/2024 4:09 AM EDT [facility] Spec [place], Urine >1.030(H) 1.005 - 1.030 LAB URINALYSIS - AUTOMATED METHOD 11/19/2024 4:09 AM EDT [facility] pH, Urine 6.0 5.0 - 8.0 LAB URINALYSIS - AUTOMATED METHOD 11/19/2024 4:09 AM EDT [facility] Protein, Urine Negative Negative mg/dL LAB URINALYSIS - AUTOMATED METHOD 11/19/2024 4:09 AM EDT [facility] Glucose, Urine >=1000(A) Negative mg/dL LAB URINALYSIS - AUTOMATED METHOD 11/19/2024 4:09 AM EDT [facility] Ketones, Urine Negative Negative mg/dL LAB URINALYSIS - AUTOMATED METHOD 11/19/2024 4:09 AM EDT [facility] Blood, Urine Negative Negative LAB URINALYSIS - AUTOMATED METHOD 11/19/2024 4:09 AM EDT [facility] Bilirubin, Urine Negative Negative LAB URINALYSIS - AUTOMATED METHOD 11/19/2024 4:09 AM EDT [facility] Urobilinogen, Urine 0.2 0.2 to 1.0 mg/dL LAB URINALYSIS - AUTOMATED METHOD 11/19/2024 4:09 AM EDT [facility] Leukocytes, Urine Negative Negative LAB URINALYSIS - AUTOMATED METHOD 11/19/2024 4:09 AM EDT [facility] Nitrite, Urine Negative Negative LAB URINALYSIS - AUTOMATED METHOD 11/19/2024 4:09 AM EDT [facility] Urine Urine specimen obtained by clean catch procedure / Unknown Non-blood Collection / Unknown 11/19/2024 3:37 AM EDT 11/19/2024 4:06 AM EDT us Jose David Topete MD LAB URINE ORDERABLES Final Resu lt [facility] [address] [place] [address] * Type and screen (11/19/2024 1:33 AM [...] TEST ORDERABLES Final Result BLOOD BANK [address] [place] [address], * (ABNORMAL) Iron & Total Iron Binding Capacity, Plasma (Includes Transferrin) (11/19/2024 12:51 AM EDT) Iron, Plasma 67 30 - 160 ug/dL 11/19/2024 4:08 AM EDT [facility] Transferrin, Plasma 182(L) 200 - 360 mg/dL 11/19/2024 4:08 AM EDT [facility] Total Iron Binding Capacity, Plasma 228(L) 240 - 450 ug/mL 11/19/2024 4:08 AM EDT [facility] Transferrin Saturation 29 14 - 50 % 11/19/2024 4:08 AM EDT [facility] Blood Venous blood specimen / Unknown Venipuncture / Unknown 11/19/2024 12:51 AM EDT 11/19/2024 12:53 AM EDT us Alin Ivey MD LAB BLOOD ORDERABLES Final Resu lt [facility] [address] [place] [address] * Anti Xa Level Unfractionated Heparin (11/19/2024 12:51 AM EDT) Anti Xa Level Unfractionated Heparin <0.11 <1.00 IU/mL 11/19/2024 1:10 AM EDT [facility] Blood Venous blood specimen / Unknown Venipuncture / Unknown 11/19/2024 12:51 AM EDT 11/19/2024 12:53 AM EDT Narrative [facility] - 11/19/2024 1:10 AM EDT Therapeutic Range: UFH Full Dose and ACS/CO protocols*: 0.30 - 0.70 IU/mL UFH Low Dose protocol*: 0.25 - 0.50 IU/mL UFH prophylaxis: Not established us Jose David Topete MD LAB BLOOD ORDERABLES Final Resu lt Performing Organization Address [facility]/ZIP Co de Phone Number [facility] [address] [place] [address] * (ABNORMAL) Magnesium (11/19/2024 12:51 AM EDT) Magnesium, Plasma 1.6(L) 1.9 - 2.4 mg/dL 11/19/2024 1:23 AM EDT [facility] Blood Venous blood specimen / Unknown Venipuncture / Unknown 11/19/2024 12:51 AM EDT 11/19/2024 12:53 AM EDT us Jose David Topete MD LAB BLOOD ORDERABLES Final Resu lt Performing Organization Address [facility]/ZIP Co de Phone Number [facility] [address] [place] [address] * (ABNORMAL) CMP (11/19/2024 12:51 AM EDT) Glucose, Plasma 130(H) 74 - 99 mg/dL 11/19/2024 1:23 AM EDT [facility] BUN, Plasma 19 8 - 23 mg/dL 11/19/2024 1:23 AM EDT [facility] Creatinine, Plasma 1.08 0.60 - 1.10 mg/dL 11/19/2024 1:23 AM EDT [facility] BUN/Creatinine Ratio 18 11/19/2024 1:23 AM EDT [facility] Sodium, Plasma 136 136 - 145 mmol/L 11/19/2024 1:23 AM EDT [facility] Potassium, Plasma 3.4(L) 3.6 - 4.9 mmol/L 11/19/2024 1:23 AM EDT [facility] Chloride, Plasma 99 97 - 107 mmol/L 11/19/2024 1:23 AM EDT [facility] CO2, Plasma 23 22 - 29 mmol/L 11/19/2024 1:23 AM EDT [facility] Anion Gap 14 6 - 16 mmol/L 11/19/2024 1:23 AM EDT [facility] Total Calcium, Plasma 9.1 8.9 - 10.2 mg/dL 11/19/2024 1:23 AM EDT [facility] Total Protein 6.4 6.3 - 7.9 g/dL 11/19/2024 1:23 AM EDT [facility] Albumin, Plasma 3.5 3.5 - 5.2 g/dL 11/19/2024 1:23 AM EDT [facility] AST, Plasma 12 10 - 35 U/L 11/19/2024 1:23 AM EDT [facility] ALT, Plasma 19 10 - 35 U/L 11/19/2024 1:23 AM EDT [facility] Alkaline Phosphatase, Plasma 99 46 - 142 U/L 11/19/2024 1:23 AM EDT [facility] Total Bilirubin, Plasma 0.7 0.2 - 1.1 mg/dL 11/19/2024 1:23 AM EDT [facility] eGFRcr 57.8 mL/min/1.7 3m*2 11/19/2024 1:23 AM EDT [facility] Comment:Reported eGFRcr in m L/min/1.73m2 is based the CKD-EPI 2020 equation that does not use a race coefficient. Blood Venous blood specimen / Unknown Venipuncture / Unknown 11/19/2024 12:51 AM EDT 11/19/2024 12:53 AM EDT us Jose David Topete MD LAB BLOOD ORDERABLES Final Resu lt [facility] [address] [place] [address] * (ABNORMAL) CBC w/diff (11/19/2024 12:51 AM EDT) WBC Count 3.61(L) 3.70 - 10.30 10*3/uL LAB HEMATOLOGY METHOD 11/19/2024 2:05 AM EDT [facility] RBC Count 2.08(L) 3.90 - 5.20 10*6/uL LAB HEMATOLOGY METHOD 11/19/2024 2:05 AM EDT [facility] HGB 6.5(L) 11.2 - 15.7 g/dL LAB HEMATOLOGY METHOD 11/19/2024 2:05 AM EDT [facility] HCT 20.8(L) 34.0 - 45.0 % LAB HEMATOLOGY METHOD 11/19/2024 2:05 AM EDT [facility] Platelet Count 73(L) 155 - 369 10*3/uL LAB HEMATOLOGY METHOD 11/19/2024 2:05 AM EDT [facility] MCV 100(H) 79 - 98 fL LAB HEMATOLOGY METHOD 11/19/2024 2:05 AM EDT [facility] MCH 31.3 26.0 - 32.0 pg LAB HEMATOLOGY METHOD 11/19/2024 2:05 AM EDT [facility] MCHC 31.3 30.7 - 35.5 g/dL LAB HEMATOLOGY METHOD 11/19/2024 2:05 AM EDT [facility] RDW 17.3(H) 11.5 - 14.5 % LAB HEMATOLOGY METHOD 11/19/2024 2:05 AM EDT [facility] MPV 10.7 8.8 - 12.5 fL LAB HEMATOLOGY METHOD 11/19/2024 2:05 AM EDT [facility] nRBC 2.2(H) <=0.0 per 100 WBCs LAB HEMATOLOGY METHOD 11/19/2024 2:05 AM EDT [facility] Differential Type Automated LAB HEMATOLOGY METHOD 11/19/2024 2:05 AM EDT [facility] Neutrophils % 54 % LAB HEMATOLOGY METHOD 11/19/2024 2:05 AM EDT [facility] Lymphocytes % 27 % LAB HEMATOLOGY METHOD 11/19/2024 2:05 AM EDT [facility] Monocytes % 11 % LAB HEMATOLOGY METHOD 11/19/2024 2:05 AM EDT [facility] Eosinophils % 4 % LAB HEMATOLOGY METHOD 11/19/2024 2:05 AM EDT [facility] Basophils % 2 % LAB HEMATOLOGY METHOD 11/19/2024 2:05 AM EDT [facility] Immature Granulocytes % 2 % LAB HEMATOLOGY METHOD 11/19/2024 2:05 AM EDT [facility] Neutrophils Absolute 1.99 1.60 - 6.10 10*3/uL LAB HEMATOLOGY METHOD 11/19/2024 2:05 AM EDT [facility] Lymphocytes Absolute 0.97(L) 1.20 - 3.90 10*3/uL LAB HEMATOLOGY METHOD 11/19/2024 2:05 AM EDT [facility] Monocytes Absolute 0.38 0.30 - 0.90 10*3/uL LAB HEMATOLOGY METHOD 11/19/2024 2:05 AM EDT [facility] Eosinophils Absolute 0.13 0.00 - 0.50 10*3/uL LAB HEMATOLOGY METHOD 11/19/2024 2:05 AM EDT [facility] Basophils Absolute 0.07 0.00 - 0.10 10*3/uL LAB HEMATOLOGY METHOD 11/19/2024 2:05 AM EDT [facility] Immature Granulocytes Absolute 0.07(H) 0.00 - 0.06 10*3/uL LAB HEMATOLOGY METHOD 11/19/2024 2:05 AM EDT [facility] Blood Venous blood specimen / Unknown Venipuncture / Unknown 11/19/2024 12:51 AM EDT 11/19/2024 12:53 AM EDT Narrative [facility] - 11/19/2024 2:05 AM EDT Therapeutic decision making should be based on absolute values, rather than percentages. us Jose David Topete MD LAB BLOOD ORDERABLES Final Resu lt [facility] [address] [place] [address] * (ABNORMAL) POCT glucose meter (11/19/2024 12:43 [...] Comment 11/19/2024 12:45 AM EDT [facility] Floor Molder ID Noam Stiles 11/19/2024 12:45 AM EDT [facility] Device ID [id number] 11/19/2024 12:45 AM EDT [facility] Specimen Type POC Capillary 11/19/2024 12:45 AM EDT [facility] Blood Capillary blood specimen / Unknown 11/19/2024 12:43 AM EDT 11/19/2024 12:45 AM EDT us Generic Provider Poct LAB POINT OF CARE TEST DOCKED DEVICE UNSOLICITED RESULTS Final Result [facility] [address] [place] [address] * ECG Adult (11/19/2024 12:42 AM EDT) EKG DIAGNOSIS CLASS Abnormal MUSE ECG Ventricular Rate 140 BPM MUSE ECG QRSD Interval 90 ms MUSE ECG QT Interval 288 ms MUSE ECG QTC Interval 439 ms MUSE ECG R [place] 23 degrees MUSE ECG T Wave [place] 101 degrees MUSE ECG Diagnosis Baseline Artifact MUSE ECG Diagnosis Atrial fibrillation with rapid ventricular response MUSE ECG Diagnosis Nonspecific ST and T wave abnormality MUSE ECG Diagnosis Abnormal ECG MUSE ECG Diagnosis Compared to last ECG MUSE ECG Diagnosis Atrial fibrillation has replaced sinus rhythm MUSE ECG Diagnosis MUSE ECG Diagnosis Confirmed by Leeroy Herbert ([id number]) on 11/19/2024 11:13:01 AM MUSE ECG 11/19/2024 [...] unspecified whether care home insulin use (CMS/HCC) documented in this encounter [...] Inhalation, 2 times daily, First dose on [facility] 11/19/24 at 0900, Until Discontinued Given 11/22/2024 8:22 AM EDT 2 puffs Given 11/21/2024 8:07 PM EDT 2 puffs Given 11/21/2024 8:00 AM EDT 2 puffs nitrofurantoin (macrocrystal-monohydrate) (Macrobid) capsule 100 mg 100 mg, Oral, 2 times daily, First dose on [facility] 11/19/24 at 1045, Until Discontinued, Routine Given [...] Tu11/22/24 at 1858, Routine, line care Tiotropium Cassandra Monohydrate (Spiriva Respimat) 2.5 MCG/ACT inhaler 2 [...] - Reason: Loss of IV access) Tiotropium Cassandra Monohydrate (Spiriva Respimat) 2.5 MCG/ACT inhaler 2 [...] care Linked Groups Order Group 1: Tiotropium Cassandra Monohydrate (Spiriva Respimat) 2.5 MCG/ACT inhaler 2 [...] 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, [employer] SCI[employer] TE[employer]ER Panic 10/26/2024 10/31/2024 Assessment Noted Time PHQ-9 Depression Total Score: 0 09/01/19 3:26 PM EDT A fall risk assessment has been complete d for the patient 11/10/2024 2:43 PM EDT A Body Mass Index follow-up plan has been documented for the patient 11/22/2024 4:27 PM EDT documented as of this encounter Care Teams 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
--- OUTSIDE RECORDS SUMMARY | 2024-11-22 01:18 | XMS_ITS | Continuity of Care Document ---
Author Organization [facility] Phone Care Team Providers Care Roving Department End Finder Name Role Phone SHENALLY PERAZAMAD Stephanie Primary Care SAHARA SOUZA Primary Attending SAHARA SOUZA Admitting SAHARA SOUZA Unavailable ALLERGIES AND ADVERSE REACTIONS ALLERGIES AND ADVERSE REACTIONS Code System Allergy Substance Adverse Reaction Date Reaction (Severity) Comment Status Reported By Updated By 7021 RXNorm KEFLEX Adverse reaction to substance (Mild) . active [id number] on November 18, 2024 11:00:20 PM [facility] 78908 RXNorm LISINOPRIL Adverse reaction to substance . active [id number] on November 18, 2024 11:00:20 PM [facility] 64613 RXNorm MELOXICAM Adverse reaction to substance . active [id number] on November 18, 2024 11:00:20 PM [facility] FAMILY HISTORY RELATION: Father Status: Cause of : Unknown Age at : Unknown SNOMED-CT Diagnosis Age At Onset Information not available RELATION: Mother Status: Cause of : Unknown Age at : Unknown SNOMED-CT Diagnosis Age At Onset Information not available RESULTS Patient: CARLITOS Zamudio Date of : 1960 6 LABORATORY RESULTS ORDER 100: CBC W/ AUTO DIFF (LOINC: 64031-3) ORDER DATE: November 18, 2024 11:00:00 PM [facility] Specimen Source: Whole Blood Specimen Type: Whole blood s ample PERFORMING LAB: [address] [id number] Result Comment: Final Result Date: November 18, 2024 11:20:00 PM [facility] (TECH: KF2) LOINC TEST FLAG RESULT REFERENCE RANGE UPDA NISREEN BY 6690-2 Leukocytes [#/volume ] in Blood by Automated count N 5.13 K/uL 4.5 K/uL - 11.5 K/uL November 18, 2024 11:20:00 PM UTC (TECH: KF2) 789-8 Erythrocytes [#/volume] in Blood by Automated count L 2.25 M/uL 4.0 M/uL - 5.4 M/uL November 18, 2024 11:20:00 PM UTC (TECH: KF2) 718-7 Hemoglobin [Mass/volume] in Blood LL 7.1 g/dL 12.0 g/dL - 15.0 g/dL November 18, 2024 11:20:00 PM UTC (TECH: KF2) 4544-3 Hematocrit [Volume Fraction] of Blood by Automated count LL 22.6 % 35 % - 49 % November 18, 2024 11:20:00 PM UTC (TECH: KF2) 787-2 Erythrocyte mean corpuscular volume [Entitic volume] by Automated count H 100.4 fL 80.0 fL - 100.0 fL November 18, 2024 11:20:00 PM UTC (TECH: KF2) 785-6 Erythrocyte mean corpuscular hemoglobin [Entitic mass] by Automated count N 31.6 pg 26.0 pg - 32.0 pg November 18, 2024 11:20:00 PM UTC (TECH: KF2) 786-4 Erythrocyte mean corpuscular hemoglobin concentration [Mass/volume] by Automated count L 31.4 g/dL 32.0 g/dL - 36.0 g/dL November 18, 2024 11:20:00 PM UTC (TECH: KF2) 788-0 Erythrocyte distribution width [Ratio] by Automated count H 17.1 % 11.5 % - 14.5 % November 18, 2024 11:20:00 PM UTC (TECH: KF2) 997-3 Platelets [#/volume] in Blood by Automated count L 89 K/uL 142 K/uL - 424 K/uL November 18, 2024 11:20:00 PM UTC (TECH: KF2) 58354-7 Platelet mean volume [Entitic volume] in Blood by Automated count H 10.4 fL 6.8 fL - 10.2 fL November 18, 2024 11:20:00 PM UTC (TECH: KF2) 94497-8 Neutrophils/100 leukocytes in Blood N 63.7 % 50 % - 70 % November 18, 2024 11:20:00 PM UTC (TECH: KF2) 21291-5 Lymphocytes/100 leukocytes in Blood N 22.6 % 18.0 % - 42.0 % November 18, 2024 11:20:00 PM UTC (TECH: KF2) 91732-5 Monocytes/100 leukocytes in Blood N 9.0 % 2.0 % - 11.0 % November 18, 2024 11:20:00 PM UTC (TECH: KF2) 39679-4 Eosinophils/100 leukocytes in Blood N 2.5 % 1.0 % - 3.0 % November 18, 2024 11:20:00 PM UTC (TECH: KF2) 49218-3 Basophils/100 leukocytes in Blood N 0.6 % 0.0 % - 2.0 % November 18, 2024 11:20:00 PM UTC (TECH: KF2) 03400-1 Immature granulocytes/100 leukocytes in Blood by Automated count H 1.6 % 0.0 % - 0.8 % November 18, 2024 11:20:00 PM UTC (TECH: KF2) 99083-7 Nucleated cells [#/volume] in Blood N 2.3 % November 18, 2024 11:20:00 PM UTC (TECH: KF2) 01591-3 Neutrophils [#/volume] in Blood N 3.27 K/uL November 18, 2024 11:20:00 PM UTC (TECH: KF2) 42174-6 Lymphocytes [#/volume] in Blood N 1.16 K/uL November 18, 2024 11:20:00 PM UTC (TECH: KF2) 85771-9 Monocytes [#/volume] in Blood N 0.46 K/uL November 18, 2024 11:20:00 PM UTC (TECH: KF2) 50529-6 Eosinophils [#/volume] in Blood N 0.13 K/uL November 18, 2024 11:20:00 PM UTC (TECH: KF2) 704-7 Basophils [#/volume] in Blood by Automated count N 0.03 K/uL November 18, 2024 11:20:00 PM UTC (TECH: KF2) 23595-9 Immature granulocyte s [#/volume] in Blood N 0.08 K/uL November 18, 2024 11:20:00 PM [facility] (TECH: KF2) 20583-8 Nucleated cells [#/volume] in Blood N 0.12 k/uL November 18, 2024 11:20:00 PM [facility] (TECH: KF2) 35081-8 Manual differential comment [interpretation] in Blood Narrative N NO November 18, 2024 11:20:00 PM UTC (TECH: KF2) ORDER 200: COMP METABOLIC PA KUSH (LOINC: 92244-2) ORDER DATE: November 18, 2024 11:00:00 PM UTC Specimen Source: Serum/Plasm a Specimen Type: Acellular blo od (serum or plasma) specimen PERFORMING LAB: [address] [id number] Result Comment: Final Result Date: November 18, 2024 11:40:00 PM [facility] (TECH: EH) LOINC TEST FLAG RESULT REFERENCE RANGE UPDA NISREEN BY 2951-2 Sodium [Moles/volume ] in Serum or Plasma L 133 mmol/L 137 mmol/L - 147 mmol/L November 18, 2024 11:40:00 PM [facility] (TECH: EH) 2823-3 Potassium [Moles/volume] in Serum or Plasma N 3.6 mmol/L 3.5 mmol/L - 5.1 mmol/L November 18, 2024 11:40:00 PM [facility] (TECH: EH) 2075-0 Chloride [Moles/volu me] in Serum or Plasma L 95 mmol/L 98 mmol/L - 110 mmol/L November 18, 2024 11:40:00 PM UTC (TECH: EH) 8-9 Carbon dioxide, tota l [Moles/volume] in Serum or Plasma N 24 mmol/L 21 mmol/L - 30 mmol/L November 18, 2024 11:40:00 PM [facility] (TECH: EH) 71556-0 Anion gap in Serum o r Plasma N 14 mmol/L 6 mmol/L - 14 mmol/L November 18, 2024 11:40:00 PM UTC (TECH: EH) 2345-7 Glucose [Mass/volume ] in Serum or Plasma H 258 mg/dL 70 mg/dL - 115 mg/dL November 18, 2024 11:40:00 PM UTC (TECH: EH) 3094-0 Urea nitrogen [Mass/volume] in Serum or Plasma H 23 mg/dL 7 mg/dL - 17 mg/dL November 18, 2024 11:40:00 PM [facility] ([employer]) 2160-0 Creatinine [Mass/volume] in Serum or Plasma N 1.2 mg/dL 0.5 mg/dL - 1.5 mg/dL November 18, 2024 11:40:00 PM [facility] ([employer]: ) 3097-3 Urea nitrogen/Creatinine [Mass Ratio] in Serum or Plasma N 19 10 - 20 November 18, 2024 11:40:00 PM [facility] ([employer]: [employer]) 84474-6 Glomerular filtratio n rate [Volume Rate/Area] in Serum or Plasma by Creatinine-based formula (MDRD)/1.73 sq M L 51 mL/min >60 November 18, 2024 11:40:00 PM [facility] ([employer]) 87073-4 Osmolality of Serum or Plasma by calculation N 290 mOsmol/Kg 275 mOsmol/Kg - 301 mOsmol/Kg November 18, 2024 11:40:00 PM [facility] ([employer]) 2885-2 Protein [Mass/volume ] in Serum or Plasma N 7.2 g/dL 6.2 g/dL - 8.2 g/dL November 18, 2024 11:40:00 PM [facility] ([employer]) 1751-7 Albumin [Mass/volume ] in Serum or Plasma N 4.0 g/dL 3.5 g/dL - 5.0 g/dL November 18, 2024 11:40:00 PM [facility] ([employer]) 87891-4 Calcium [Mass/volume ] in Serum or Plasma N 9.4 mg/dL 8.5 mg/dL - 10.8 mg/dL November 18, 2024 11:40:00 PM [facility] ([employer]: [employer]) 1975-2 Bilirubin.total [Mass/volume] in Serum or Plasma N 1.1 mg/dL 0.2 mg/dL - 1.3 mg/dL November 18, 2024 11:40:00 PM [facility] (TECH: [employer]) 1920-8 Aspartate aminotransferase [Enzymatic activity/volume] in Serum or Plasma N 18 IU/L 14 IU/L - 36 IU/L November 18, 2024 11:40:00 PM [facility] (TECH: EH) 1742-6 Alanine aminotransferase [Enzymatic activity/volume] in Serum or Plasma N 23 IU/L 0 IU/L - 35 IU/L November 18, 2024 11:40:00 PM [facility] (TECH: EH) 01797-0 Alkaline phosphatase.bile [Enzymatic activity/volume] in Serum or Plasma N 107 IU/L 38 IU/L - 126 IU/L November 18, 2024 11:40:00 PM [facility] (TECH: EH) ORDER 300: LIPASE (LOINC: 30 40-3) ORDER DATE: November 18, 2024 11:00:00 PM UTC Specimen Source: Serum/Plasm a Specimen Type: Acellular blo od (serum or plasma) specimen PERFORMING LAB: [address] [id number] Result Comment: Final Result Date: November 18, 2024 11:40:00 PM [facility] (TECH: ) LOINC TEST FLAG RESULT REFERENCE RANGE UPDA NISREEN BY 3040-3 Lipase [Enzymatic activity/volume] in Serum or Plasma N 56 U/L 23 U/L - 300 U/L November 18, 2024 11:40:00 PM [facility] (TECH: EH) ORDER 400: UA WITH CULTURE I F INDICATED (LOINC: 26424-5) ORDER DATE: November 18, 2024 11:00:00 PM UTC Specimen Source: Urine Specimen Type: Urine specime n PERFORMING LAB: [address] [id number] Result Comment: Final Result Date: November 19, 2024 12:22:00 AM [facility] (TECH: EH) LOINC TEST FLAG RESULT REFERENCE RANGE UPDA NISREEN BY 5778-6 Color of Urine N YELLOW YELLOW November 19, 2024 12:22:00 AM [facility] (TECH: EH) 5767-9 Appearance of Urine N CLEAR CLEAR November 19, 2024 12:22:00 AM [facility] (TECH: EH) 5792-7 Glucose [Mass/volume] in Urine by Test strip N 3+ NEGATIVE November 19, 2024 12:22:00 AM [facility] (TECH: EH) 60360-2 Bilirubin.total [Mass/volume] in Urine by Automated test strip N NEGATIVE NEGATIVE November 19, 2024 12:22:00 AM [facility] (TECH: EH) 5797-6 Ketones [Mass/volume] in Urine by Test strip N NEGATIVE NEGATIVE November 19, 2024 12:22:00 AM UTC (TECH: EH) 2965-2 Specific gravity of Urine N <=1.005 1.005 - 1.025 November 19, 2024 12:22:00 AM UTC (TECH: EH) 45559-6 Erythrocytes [#/volume] in Urine by Automated test strip N NEGATIVE NEGATIVE November 19, 2024 12:22:00 AM UTC (TECH: EH) 44979-1 pH of Urine by Automated test strip N 6.0 5.0 - 8.0 November 19, 2024 12:22:00 AM UTC (TECH: EH) 05031-3 Protein [Presence] in Urine by Test strip N NEGATIVE NEGATIVE November 19, 2024 12:22:00 AM UTC (TECH: EH) 12762-3 Urobilinogen [Mass/volume] in Urine by Automated test strip N 0.2 E.U./dL 0.0 - 0.2 November 19, 2024 12:22:00 AM UTC (TECH: EH) 53636-7 Nitrate [Presence] in Urine N NEGATIVE NEGATIVE November 19, 2024 12:22:00 AM UTC (TECH: EH) 70070-3 Leukocytes [#/volume] in Urine by Test strip N NEGATIVE NEGATIVE November 19, 2024 12:22:00 AM UTC (TECH: EH) 83445-7 Other elements in Urine sediment N NOT INDICATED November 19, 2024 12:22:00 AM [facility] (TECH: EH) 64054-1 Microscopic exam [interpretation] of Urine by Cytology N NO November 19, 2024 12:22:00 AM UTC (TECH: EH) ORDER 600: TROPONIN QUANT (L OINC: 32528-6) ORDER DATE: November 18, 2024 11:19:00 PM UTC Specimen Source: Plasma Specimen Type: Plasma specim en PERFORMING LAB: [address] [id number] Result Comment: Final Result Date: November 18, 2024 11:58:00 PM [facility] (TECH: A/V) LOINC TEST FLAG RESULT [place] [address]-4 Troponin I.cardiac [Mass/volume] in Serum or Plasma by Detection limit <= 0.01 ng/mL N <0.012 ng/mL 0.000 ng/mL - 0.034 ng/mL November 18, 2024 11:58:00 PM UTC (TECH: A/V) ORDER 900: LACTIC ACID (LOIN C: 42623-3) ORDER DATE: November 18, 2024 11:19:00 PM UTC Specimen Source: Plasma Specimen Type: Plasma specim en PERFORMING LAB: [address] [id number] Result Comment: Final Result Date: November 18, 2024 11:40:00 PM UTC (TECH: EH) LOINC TEST FLAG RES[place] [address]-6 Lactate [Moles/volume] in Blood HH 5.1 mmol/L 0.7 mmol/L - 2.1 mmol/L November 18, 2024 11:40:00 PM UTC (TECH: EH) ORDER 1000: PROCALCITONIN (L OINC: 03603-1) ORDER DATE: November 18, 2024 11:19:00 PM UTC Specimen Source: Plasma Specimen Type: Plasma specim en PERFORMING LAB: [address] [id number] Result Comment: Final Result Date: November 18, 2024 11:46:00 PM UTC (TECH: A/V) LOINC TEST FLAG RES[place] [address]-4 Procalcitonin [Mass/volume] in Serum or Plasma N 0.34 ng/ml 0.00 ng/ml - 0.50 ng/ml November 18, 2024 11:46:00 PM UTC (TECH: A/V) ORDER 1100: LACTIC ACID 3 HO UR (LOINC: 43712-3) ORDER DATE: November 18, 2024 11:39:00 PM UTC Specimen Source: Plasma Specimen Type: Plasma specim en PERFORMING LAB: [address] [id number] Result Comment: Final Result Date: November 19, 2024 2:30:00 AM UTC (TECH: A/V) LOINC TEST FLAG RES[place] [address]-8 Lactate [Mass/volume ] in Serum or Plasma --2 hours post XXX challenge H 2.7 mmol/L 0.7 mmol/L - 2.1 mmol/L November 19, 2024 2:30:00 AM UTC (TECH: A/V) LABORATORY NARRATIVE RESULTS Information is not available RADIOLOGY RESULTS ORDER 1300: CT HEAD BRAIN WO (LOINC: 98540-8) ORDER DATE: November 19, 2024 12:25:00 AM [facility] PERFORMING LAB: [address] [id number] Final Result Date: November 19 11:18:18 AM [facility] (TECH: TANJA TORRES MD) [address] [address] (Phone) IMAGING REPORT Name: CHICHI URBINA : 1960 Age: 63 Years Patient Type: ER Dept Sex: F Exam Description: CT HEAD BRAIN WO Exam Reason: recent head bleed Order Date/Time: 11/18/2024 09:05:20 PM Dictated By: Miguel Humphrey MD Ordering Physician: CARMEL ORTIZ Attending Physician: SAHARA SOUZA CT HEAD WITHOUT IV CONTRAST, 11/18/2024 8:05 PM CDT CLINICAL INDICATION: Female, 63 years old. recent head bleed TECHNIQUE: Axial CT images from the skull base to the vertex without intravenous contrast. Coronal and sagittal reformatted images were created from the data set. One or more of the following dose reduction techniques were used: Automated exposure control, adjustment of the mA and/or kV according to patient size, and/or iterative reconstruction. Unless otherwise specified, incidental findings do not require dedicated imaging follow-up. [id number]. COMPARISON: None available. FINDINGS: Meek-white matter differentiation is well-maintained without evidence of acute transcortical infarct. Parenchymal volume is grossly normal for the patient's age. There is hyperattenuation along the left side of the falx near the vertex and adjacent to the surgical site concerning for an acute subdural hematoma measuring up to 5 mm in thickness. Additionally there is some hyperattenuation in the adjacent sulci concerning for small volume acute subarachnoid hemorrhage. There is also minimal hyperattenuation in the extra-axial space just deep to the PAGE 1 OF 2 Name: CHICHI URBINA : 1960 Age: 63 Years Patient Type: ER Dept Sex: F Exam Description: CT HEAD BRAIN WO Exam Reason: recent head bleed Order Date/Time: 11/18/2024 09:05:20 PM craniotomy site which could represent postoperative changes versus a 4 mm acute to subacute extra-axial hematoma. There is minimal adjacent mass effect and no midline shift or herniation appreciated. No hydrocephalus or intraventricular hemorrhage appreciated. Air-fluid levels in the sphenoid sinuses and left maxillary sinus without visible acute fracture. The mastoid air cells are clear. Visualized orbits demonstrate no acute abnormality. No acute calvarial fracture appreciated. Status post left parietal craniotomy. IMPRESSION: Hyperattenuation along left-sided the falx to the vertex and adjacent to the surgical site concerning for an acute subdural hematoma measuring 5 m in thickness with likely adjacent small volume acute subarachnoid hemorrhage. There is also minimal hyperattenuation the extra-axial space just deep to the craniotomy site in the left parietal region near the vertex which could represent postoperative changes versus a 4 mm acute to subacute extra-axial hematoma. Minimal adjacent mass effect and no midline shift or herniation appreciated. Air-fluid levels in the sphenoid sinuses and left maxillary sinus without visible acute fracture. This may represent acute sinusitis. Electronically signed by: Miguel Humphrey MD 11/18/2024 09:56 PM EDT RP [employer] Name: Miguel Humphrey Provider ID: [id number] PAGE 2 OF [address] [address] (Phone) IMAGING REPORT Name: CHICHI URBINA : 1960 Age: 63 Years Patient Type: ER Dept Sex: F Exam Description: CT HEAD BRAIN WO Exam Reason: recent head bleed Order Date/Time: 11/18/2024 09:05:20 PM Dictated By: Miguel Humphrey MD Ordering Physician: CARMEL ORTIZ Attending Physician: SAHARA SOUZA ADDENDUM #1 The critical findings in the impression were discussed with Dr. Imani Dye at 8:59 PM central time on 11/18/2024. Electronically signed by: Miguel Humphrey MD 11/19/2024 07:18 AM EDT RP ORIGINAL REPORT CT HEAD WITHOUT IV CONTRAST, 11/18/2024 8:05 PM CDT CLINICAL INDICATION: Female, 63 years old. recent head bleed TECHNIQUE: Axial CT images from the skull base to the vertex without intravenous contrast. Coronal and sagittal reformatted images were created from the data set. One or more of the following dose reduction techniques were used: Automated exposure control, adjustment of the mA and/or kV according to patient size, and/or iterative reconstruction. PAGE 1 OF 3 Name: CHICHI URBINA : 1960 Age: 63 Years Patient Type: ER Dept Sex: F Exam Description: CT HEAD BRAIN WO Exam Reason: recent head bleed Order Date/Time: 11/18/2024 09:05:20 PM Unless otherwise specified, incidental findings do not require dedicated imaging follow-up. [id number]. COMPARISON: None available. FINDINGS: Meek-white matter differentiation is well-maintained without evidence of acute transcortical infarct. Parenchymal volume is grossly normal for the patient's age. There is hyperattenuation along the left side of the falx near the vertex and adjacent to the surgical site concerning for an acute subdural hematoma measuring up to 5 mm in thickness. Additionally there is some hyperattenuation in the adjacent sulci concerning for small volume acute subarachnoid hemorrhage. There is also minimal hyperattenuation in the extra-axial space just deep to the craniotomy site which could represent postoperative changes versus a 4 mm acute to subacute extra-axial hematoma. There is minimal adjacent mass effect and no midline shift or herniation appreciated. No hydrocephalus or intraventricular hemorrhage appreciated. Air-fluid levels in the sphenoid sinuses and left maxillary sinus without visible acute fracture. The mastoid air cells are clear. Visualized orbits demonstrate no acute abnormality. No acute calvarial fracture appreciated. Status post left parietal craniotomy. IMPRESSION: Hyperattenuation along left-sided the falx to the vertex and adjacent to the surgical site concerning for an acute subdural hematoma measuring 5 m in thickness with likely adjacent small volume acute subarachnoid hemorrhage. There is also minimal hyperattenuation the extra-axial space just deep to the craniotomy site in the left parietal region near the vertex which could represent postoperative changes versus a 4 mm acute to subacute extra-axial hematoma. Minimal adjacent mass effect and no midline shift or herniation appreciated. PAGE 2 OF 3 : 1960 Age: 63 Years Patient Type: ER Dept Sex: F Exam Description: CT HEAD BRAIN WO Exam Reason: recent head bleed Order Date/Time: 11/18/2024 09:05:20 PM Air-fluid levels in the sphenoid sinuses and left maxillary sinus without visible acute fracture. This may represent acute sinusitis. Electronically signed by: Miguel Humphrey MD 11/18/2024 09:56 PM EDT RP [employer] Name: Miguel Humphrey Provider ID: [id number] PAGE 3 OF 3 ORDER 1400: CT ABD AND PELVI S IV ONLY NO PO (LOINC: 96917-8) ORDER DATE: November 19, 2024 12:25:00 AM [facility] PERFORMING LAB: [address] [id number] Final Result Date: November 19 1:48:34 AM [facility] (TECH: TANJA TORRES MD) [address] [address] (Phone) IMAGING REPORT Name: CHICHI URBINA : 1960 Age: 63 Years Patient Type: ER Dept Sex: F Exam Description: CT ABD \T\ PELVIS IV ONLY NO PO Exam Reason: Abd pain without fever Order Date/Time: 11/18/2024 09:05:28 PM Dictated By: Miguel Humphrey MD Ordering Physician: CARMEL ORTIZ Attending Physician: SAHARA SOUZA CT ABDOMEN PELVIS WITH IV CONTRAST, 11/18/2024 8:05 PM CDT CLINICAL INDICATION: Female, 63 years old. Abd pain without fever TECHNIQUE: CT abdomen and pelvis was performed after the administration of IV contrast, as per department protocol. Axial, sagittal and coronal reconstructions were obtained. One or more of the following dose reduction techniques were used: Automated exposure control, adjustment of the mA and/or kV according to patient size, and/or iterative reconstruction. Unless otherwise specified, incidental findings do not require dedicated imaging follow-up. [id number]. ORAL CONTRAST: Not administered, limiting the sensitivity of this exam for evaluation of bowel, retroperitoneum, and intraabdominal fluid collections. COMPARISON: 06/24/2024 FINDINGS: LOWER CHEST: Similar atelectasis and scarring in the posterior lung bases and lingula compared to prior study. PAGE 1 OF 3 Name: CHICHI URBINA : 1960 Age: 63 Years Patient Type: ER Dept Sex: F Exam Description: CT ABD \T\ PELVIS IV ONLY NO PO Exam Reason: Abd pain without fever Order Date/Time: 11/18/2024 09:05:28 PM LIVER: Hepatomegaly similar to prior. Punctate calcified granulomas.. GALLBLADDER: Grossly normal.? BILE DUCTS: No significant biliary ductal dilatation. PANCREAS: No peripancreatic inflammation or peripancreatic fluid collection. No pancreatic mass appreciated. SPLEEN: Normal size. Multiple calcified splenic granulomas similar to prior. ADRENALS: Grossly normal. KIDNEYS AND URETERS: The kidneys enhance symmetrically. Numerous simple fluid density cysts throughout the right kidney grossly similar to prior study 06/24/2024. There are also a few simple fluid density subcentimeter cysts in the left kidney, similar to prior. No hydronephrosis. No solid renal lesion appreciated. URINARY BLADDER: Circumferential thickening of the bladder. GASTROINTESTINAL TRACT: No abnormal distention of the stomach, small bowel, or colon to suggest bowel obstruction. No pericolonic inflammatory change. Colonic diverticulosis without definitive acute diverticulitis. APPENDIX: Normal appendix. LYMPH NODES: No lymphadenopathy. VASCULATURE: Atherosclerotic calcification of the abdominal aorta and its branching vessels without aneurysmal dilation. The portal vein is patent. PAGE 2 OF 3 : 1960 Age: 63 Years Patient Type: ER Dept Sex: F Exam Description: CT ABD \T\ PELVIS IV ONLY NO PO Exam Reason: Abd pain without fever Order Date/Time: 11/18/2024 09:05:28 PM REPRODUCTIVE ORGANS: Grossly normal appearance of the uterus and adnexa. MUSCULOSKELETAL: No acute fracture. No suspicious lytic or sclerotic lesion. PERITONEUM: No free fluid visualized in the abdomen or pelvis. No pneumoperitoneum. IMPRESSION: Circumferential thickening of the bladder concerning for acute cystitis. Correlate with urinalysis. No other acute abnormality visualized in the abdomen or pelvis. Chronic abnormalities as detailed in the findings of the report. Electronically signed by: Miguel Humhprey MD 11/18/2024 09:48 PM EDT RP [employer] Name: Miguel Humphrey Provider ID: [id number] PAGE 3 OF 3 PATHOLOGY NARRATIVE RESULTS Information is not available MICROBIOLOGY RESULTS No Micro Labs/Results Exist for Patient BLOOD ADMIN RESULTS Information is not available TREATMENT PLAN DISCHARGE MEDICATIONS Status RXNORM Medication Dose Route Frequency Dates Comments U pdated By Patient discharge medication information is not available. PATIENT OPEN ORDERS Code System Description Frequency Occurrences Priority Start Date Ordering Physician Updated By 600-7 LOINC Bacteria identified in Blood by Culture ONE TIME 0 Stat November 18, 2024 11:19:0 0 PM UTC BREEDING CARMEL Stewart PA [id number] on November 18, 2024 11:50:00 PM UTC 600-7 LOINC Bacteria identified in Blood by Culture ONE TIME 0 Stat November 18, 2024 11:19:0 0 PM UTC BREEDING CARMEL Y PA [id number] on November 18, 2024 11:50:00 PM UT SCHEDULED PROCEDURES Code System Description Status Scheduled Date Upd ated By Patient scheduled procedure information is not available. MEDICATIONS HOME MEDICATIONS Status RXNORM NDC Medication Dose Route Frequency Dates Comments Reported By Updated By Drug Treatment Unknown DISCHARGE MEDICATIONS Status RXNORM NDC Medication Dose Route Frequency Dates Comments Physician Updated By No Discharge Medication Info rmation Available INPATIENT MEDICATIONS Status RXNORM NDC Medication Dose Route Frequency Rat e Quantity Dates Comments Physician Updated By Jeet inued [id number] diltiaZEM (CARDIZEM) 25 MG/5 ML SOLN 25.0 MG IV PUSH ONE TIME ONLY Start: November 18, 2024 11:25: 00 PM UTC End: November 18, 2024 11:25: 00 PM UTC LIBBY SHOEMAKER MD INTERFAC ED on November 18, 2024 11:23:00 PM UT Discont inued [id number] diltiaZEM (CARDIZEM) 25 MG/5 ML SOLN 25.0 MG IV PUSH ONE TIME ONLY Start: November 19, 2024 2:20:0 0 AM UTC End: November 19, 2024 2:20:0 0 AM UT LIBBY SHOEMAKER MD INTERFAC ED on November 19, 2024 2:20:00 AM UT Discont inued [id number] diltiazem (CARDIZEM) 125 MG/25 ML SOLN 125.0 MG ONE TIME ONLY Start: November 19, 2024 2:52:0 0 AM UTC End: November 19, 2024 2:52:0 0 AM UT LIBBY SHOEMAKER MD INTERFAC ED on November 19, 2024 2:51:00 AM UT SOCIAL HISTORY SOCIAL HISTORY SNOMED-CT 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 Element Description Effective Dates Offered Cessation Comment UpdatedBy [id number] Current Tobacco smoking status Former Smoker [id number] on November 19, 2024 3:14:55 AM UT [id number] Historical Tobacco smoking status Current Every Day Smoker [id number] on September 25, 2023 5:36:25 PM UT SOCIAL HISTORY - Gender Sex: Female SOCIAL HISTORY - Status : status i nformation is not available Intention in Next Year: intention information is not available SOCIAL HISTORY - Sexual Behavior Sexual Orientation Gender Identity SNOMED-CT Description SNO MED -CT Description Activity Level No of Partners Partner Type UpdatedBy Information is not available VITAL SIGNS PATIENT VITAL SIGNS This section displays the mo st recent value for each vital sign as of November 22, 2024 5:18:38 AM UT Loinc Code Vital Sign Activity Date Result Updated By 8310-5 Body temperature November 19, 2024 12:08:00 AM UT 99.8 [degF] 41471-8 Body weight Measured November 18 10:58:39 PM UTC 117.7 kg (259.0 lb) [id number] on November 18, 2024 10:58:39 PM UT 8462-4 Diastolic blood pressure November 19, 2024 3:00:00 AM UTC 64.0 mm[Hg] 8867-4 Heart rate November 19, 2024 3:46:00 AM UTC 137 /min 42030-1 Oxygen saturation in Arterial blood by Pulse oximetry November 19, 2024 3:46:00 AM UT 98.0 % 9279-1 Respiratory rate November 18, 2024 10:51:00 PM UT 18 /min 8480-6 Systolic blood pressure November 19, 2024 3:00:00 AM UT 145.0 mm[Hg] PEDIATRIC GROWTH CHART - VITAL SIGNS This section displays Head C ircumference Percentile, Weight for Length Percentile and BMI Percentile Loinc Code Pediatric Measure Age (Months) Result Updat ed By No Pediatric Growth Chart Pe rcentile Information Available. HEALTH CONCERNS Problems Concern Status Health Concern problem infor mation not available. Smoking Status Status Years Used Consumed packs p er day Health Concern smoking histo ry information not available. Family History Concern Status Health Concern family histor y information not available. ENCOUNTERS ENCOUNTER INFORMATION Reason for Visit URINARY PROBLEM Admission November 18, 2024 10:47:00 PM [place] [address] [place] [address] Discharge November 19, 2024 4:05:00 AM [facility] ANOT HER [facility] ENCOUNTER DIAGNOSES Notes information is not franck ilable. Code System Diagnosis Onset Date Diagnosis information is not available. ABSTRACT DIAGNOSES Code System Diagnosis Updated By R53.1 ICD10 WEAKNESS [id number] on November 22, 2024 5:13:42 AM [facility] R10.30 ICD10 LOWER ABDOMINAL PAIN, UNSPEC IFIED [id number] on November 22, 2024 5:13:42 AM [facility] R30.9 ICD10 PAINFUL MICTURITION, UNSPECI FIED [id number] on November 22, 2024 5:13:42 AM [facility] I60.9 ICD10 NONTRAUMATIC SUB ARACHNOID HEMORRHAGE, UNSPECIFIED [id number] on November 22, 2024 5:13:42 AM [facility] I62.00 ICD10 NONTRAUMATIC SUB DURAL HEMORRHAGE, UNSPECIFIED [id number] on November 22, 2024 5:13:42 AM [facility] I48.19 ICD10 OTHER PERSISTENT ATRIAL FIBR ILLATION [id number] on November 22, 2024 5:13:42 AM [facility] I10 ICD10 ESSENTIAL (PRIMARY) HYPERTEN LISA [id number] on November 22, 2024 5:13:42 AM [place] 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 [id number] on November 22, 2024 5:13:42 AM [facility] J44.9 ICD10 CHRONIC OBSTRUCT SVETLANA PULMONARY DISEASE, UNSPECIFIED [id number] on November 22, 2024 5:13:42 AM [facility] J96.11 ICD10 CHRONIC RESPIRAT ORY FAILURE WITH HYPOXIA ASX0106 on November 22, 2024 5:13:42 AM [facility] K31.84 ICD10 GASTROPARESIS JST6779 on Nov 5:13:42 AM [place] Z88.1 ICD10 ALLERGY STATUS T O OTHER ANTIBIOTIC AGENTS [id number] on November 22, 2024 5:13:42 AM [place] Z88.6 ICD10 ALLERGY STATUS TO ANALGESIC AGENT [id number] on November 22, 2024 5:13:42 AM [place] Z88.8 ICD10 ALLERGY STATUS T O OTHER DRUGS, MEDICAMENTS AND BIOLOGICAL SUBSTANCES CYL0695 on November 22, 2024 5:13:42 AM [facility] Z87.891 ICD10 PERSONAL HISTORY OF NICOTINE DEPENDENCE [id number] on November 22, 2024 5:13:42 AM [place] 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 [id number] on November 22, 2024 5:13:42 AM [facility] 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 [id number] on November 22, 2024 5:13:42 AM [facility] CARE TEAM Care Roving Department End Finder Role SATYA GOTTI Primary Care SAHARA LIBBY Primary Attending SAHARA SOUZA Admitting SAHARA SOUZA Referring CARE TEAM CARE senior ux developer Role on Team Status Start Date End Date Update d By LIBBY SHOEMAKER MD DO Referring normal November 19 12:08:12 AM [facility] November 19, 2024 4:05:00 AM [facility] [id number] on November 19, 2024 12:08:12 AM [facility] LIBBY SHOEMAKER MD DO Attending normal November 19 12:08:12 AM [facility] November 19, 2024 4:05:00 AM [facility] [id number] on November 19, 2024 12:08:12 AM [facility] LIBBY SHOEMAKER MD DO Admitting normal November 19 12:08:12 AM [facility] November 19, 2024 4:05:00 AM [facility] [id number] on November 19, 2024 12:08:12 AM [facility] SHEN HERNADEZ MD PCP normal November 18 10:48:12 PM [facility] November 19, 2024 4:05:00 AM [facility] [id number] on November 19, 2024 12:08:12 AM [facility]
--- OUTSIDE RECORDS SUMMARY | 2024-11-22 04:00 | XMS_ITS ---
Author Organization [facility] [place] Address [address] [place] [address] Care Team Providers Care General Sales Manager Name Role Phone MUNA CARRERA Unavailable [phone] Yissel PALMER, Muna Unavailable Unavailable Yamilet Coleman Unavailable [phone] REASON FOR VISIT follow-up Encounters Encounter Location Date Provider Diagnosis [facility] [place] [address] [place] [address] 11/22/2024 Yamilet Coleman Plan Of Treatment Next Appt Details Provider Name:Yamilet heath, 02/27/2025 10:30:00 AM, [address], [place], [address], Progress Notes * Teresa URBINADOB: [birth year] (63 yo F)Acc No.[id number]:11/22/2024 Progress Notes Patient: Isis Teresa REY Provider: Carolyn Coleman :1960 A ge:63 Y S ex:Female Date:11/22/2024 Address:[address] [place] [address], [place] [id number] Subjective: * Chief Complaints: * 1 . Follow-up. * Medical History: Objective: * Vitals: Assessment: Plan: * Treatment: * * Electronic signature of CAPO Elils on 11/24/2024 at 08:58 PM EDT Sign off status: Pending * Provider: Carolyn Coleman Date: 0 11/22/2024 Generated for Chato gonzalez/Nica/Edwardo on: 0 11/24/2024 08:58 PM EDT
--- OUTSIDE RECORDS SUMMARY | 2024-11-22 04:00 | XMS_ITS ---
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 Role Phone MUNA CARRERA Unavailable [phone] Yissel PALMER, Muna Unavailable Unavailable Yamilet Coleman Unavailable [phone] REASON FOR VISIT follow-up Encounters Encounter Location Date Provider Diagnosis [facility] [place] [address] 11/22/2024 Yamilet Coleman Plan Of Treatment Next Appt Details Provider Name:Yamilet heath, 02/27/2025 10:30:00 AM, [address], [place], [address], Progress Notes * Teresa URBINADOB: [birth year] (63 yo F)Acc No.[id number]:11/22/2024 Progress Notes Patient: Isis Teresa REY Provider: Carolyn Coleman :1960 A ge:63 Y S ex:Female Date:11/22/2024 Address:[address] [place] [address], [place] [id number] Subjective: * Chief Complaints: * 1 . Follow-up. * Medical History: Objective: * Vitals: Assessment: Plan: * Treatment: * * Electronic signature of CAPO Ellis on 11/25/2024 at 03:50 PM EDT Sign off status: Pending * Provider: Carolyn Coleman Date: 0 11/22/2024 Generated for Chato gonzalez/Nica/Edwardo on: 0 11/25/2024 03:50 PM EDT
[2024-11-24] VITALS (8 sets, daily range): BP systolic 93–126; BP diastolic 40–71; PULSE 82–102; RESP 16–20; TEMP 36.7–38; O2SAT 92–95; BMI 35.5
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
--- OUTSIDE RECORDS SUMMARY | 2024-11-24 09:30 | XMS_ITS ---
Author Organization [facility] Address [address] [place] [address] Care Team Providers Care Manager [employer] Name Role Phone TRAY DEY Unavailable [phone] Tray Dey MD Unavailable Unavailable REAL SAVAGE Unavailable [phone] Allergies Allergen (clinical drug ingredient) Drug/Non Drug Allergy documented on EMR Reaction Allergy Type Onset Date Status Keflex Unknown Drug Allergy Active lisinopril Unknown Drug Allergy Active meloxicam meloxicam Unknown Drug Allergy Active Reason For Referral Reason home health or [facility]. Diagnosis 1 Cellulitis of left l ower [...] aday for 90 days Active Dexcom G7 Shaving Machine Operator - as directed 09/26/2024 Active Dexcom G7 [...] day for 90 days Active Dexcom G6 Shaving Machine Operator - as directed 02/12/2024 Active Gabapentin 600 [...] Orally every 6 hrs 11/24/2024 Active Nystatin 965401 UNIT/ML swish and swallo w 5mL Mouth/Throat [...] Provider Diagnosis [facility] [address] [place] [address] 11/24/2024 REAL SAVAGE Cellulitis of left l [...] diabetes mellitus with hyperglycemia (ICD-10 - E11.65) [facility] decent control aic 6.6 in 11/24/2024 Cellulitis [...] agrees. Type 2 diabetes mellitus with hyperglyce [facility] decent control aic 6.6 in Referrals Referral Date Details 11/24/2024 11/24/2024, home [facility] or [facility]. Next Appt Details Follow Up: prn, Reason: Provider Name:Yamilet heath, 02/27/2025 10:30:00 AM, [address], [place], [address], Progress Notes * Teresa URBINADOB: [birth year] (63 yo F)Acc No.[id number]:11/24/2024 Progress Notes Patient: Narcisa CAMPOSra Zamudio Appointment Provider: Ian SAVAGE APRN :1960 A ge:63 Y S ex:Female Date:11/24/2024 Address:[address] [place] [address], [place] [id number] Subjective: * Chief Complaints: * W ALK [...] knee, head, and thumb. she went to [facility] and was given 3 unit prbc and [...] Other Systems: Review of Systems (ROS) S [facility] for details. * Medical History: * [...] as needed Orally every 8 hours Nystatin 241402 UNIT/ML Suspension swish and swallow 5mL Mouth/Throat [...] tablet Orally Once a day Dexcom G6 Shaving Machine Operator - Device as directed Benzonatate 100 MG [...] tablet Orally once a day Dexcom G7 Shaving Machine Operator - Device as directed Dexcom G7 [...] needed Orally every 8 hours Taking Nystatin 587244 UNIT/ML Suspension swish and swallow 5mL Mouth/Throat [...] Orally Once a day Taking Dexcom G6 Shaving Machine Operator - Device as directed Taking Benzonatate 100 [...] Orally once a day Taking Dexcom G7 Shaving Machine Operator - Device as directed Taking Dexcom [...] - Strip as directed In Vitro daily Gyr-VevfkbCnqlckstkyr-UGEI 37.5-25 MG Tablet 1 tablet in the [...] APRN Date: 11/24/2024 Generated for Printing/Faxing/eTransmitting on: 11/24/2024 08:55 PM EDT History and Physical Notes * [...] 11/24/2024 REAL SAVAGE , [facility]
--- OUTSIDE RECORDS SUMMARY | 2024-11-24 20:53 | XMS_ITS | Encounter Summary ---
Author Organization Healthcare Address [address] [place] [address] Care Team Providers Care Assembly Stock Supervisor Name Role Phone Laurie Gutierrez MD Primary Care Provider [phone] Joshua Martínez MD Unavailable Jasmina Smith LPN [...] time in the past 12 m [facility], were you homeless or living in a [...] time in the past 12 m [facility], were you homeless or living in a [...] drink first t laurie in the morning (EYE-DOG OR HORSE RACING OFFICIAL) to steady your nerves or to get [...] [facility] [address] [facility], 2nd [place] [address] 11/29/2024 11:00 AM EDT Office Visit [facility] [address] [facility], 2nd [place] [address] Satnam Colvin MD [address] [facility] [address] [place] [address] 11/29/2024 12:30 PM EDT Appointment [facility] 1 [address] [place] [address] 11/30/2024 1:30 PM EDT Appointment [facility] 1 [address] [place] [address] 12/01/2024 2:00 PM EDT Appointment [facility] 1 [address] [place] [address] 12/06/2024 11:40 AM EDT Appointment [facility] Radiation [address] [facility]. [id number] [place] [address] Haven Blum, ETHYLBENZENE CRACKING SUPERVISOR [address] [place] [address] 01/19/2025 9:30 AM EDT Appointment [facility] S Radiology [address], 1st [place] [address] 01/19/2025 10:45 AM EDT Office Visit [place] [facility] [address], 1st [place] [address] Abhilash Bangura MD [address] [place] [address] 03/08/2025 1:00 PM EDT Office Visit [facility] [place] 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 Panic 10/26/2024 10/31/2024 Assessment Noted Time PHQ-9 Depression Total Score: 0 09/01/19 25 3:26 PM EDT A fall risk assessment has been complete d for the patient 10/06/2024 2:29 PM EDT A Body Mass Index follow-up plan has been documented for the patient 10/31/2024 4:09 PM EDT documented as of this encounter Care Teams Assembly Stock Supervisor Relationship Specialty Start Date End Date Laurie Gutierrez MD [address] [place] [address] PCP - General 12/09/23 Joshua Martínez MD [address] [place] [address] Consulting Physician Radiation Oncology 09/19/24 Jasmina Smith LPN VALUE-BASED [place] [address] [facility] Nurse 10/19/24 11/01/24 documented as of this encounter
--- OUTSIDE RECORDS SUMMARY | 2024-11-24 20:53 | XMS_ITS | Encounter Summary ---
Author Organization Healthcare Address [address] [place] [address] Care Team Providers Care Social Work Specialist Name Role Phone Laurie Gutierrez MD Primary Care Provider [phone] Joshua Martínez MD Unavailable Paradise Pacheco RN Unavailable Unavailab le Encounter Details Date Type Department Care Team (Late st Contact Info) Description 11/15/2024 Orders Only External Location [address] [place] [address] Regina Katz D, CORK INSULATOR [address] [place] [address] 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 Tobacco Use Types Packs/Day Years [...] the past 12 m [facility], were you homeless or living in a [...] the past 12 m [facility], were you homeless or living in a longterm (including now)? No 11/21/2024 CAGE ASSESSMENT Answer [...] drink first t laurie in the morning (EYE-BUTTERMAKER CONTINUOUS CHURN) to steady your nerves or to get [...] of Assessment Author No Risk Indicated 11/21/2024 7:39 AM JULIAT Stephanie Pierre RN * Question Answer Date of Assessment Author 1. Wish to be (Past 1 Month) No 025 7:39 AM Flor Santana RN 2. Non-Specific Active Suici radha Thoughts (Past 1 Month) No 11/21/2024 7:39 AM Gerson Santana RN 6. Suicidal Behavior (Lifetime) No 07/07/202 5 7:39 AM EDT Flor Pierre RN documented as of this encounter Plan of Treatment Upcoming Encounters Date Type Department Care Team (Late st Contact Info) Description 11/29/2024 10:30 AM EDT Clinical Support [facility] [address] [facility], 2nd [place] [address] 11/29/2024 11:00 AM EDT Office Visit [facility] [address] [facility], 2nd [place] [address] Satnam Colvin MD [address] [facility] [address] [place] [address] 11/29/2024 12:30 PM EDT Appointment [facility] 1 [address] [place] [address] 11/30/2024 1:30 PM EDT Appointment [facility] 1 [address] [place] [address] 12/01/2024 2:00 PM EDT Appointment [facility] 1 [address] [place] [address] 12/06/2024 11:40 AM EDT Appointment [facility] Radiation [address] [facility]. [id number] [place] [address] Haven Blum, CORK INSULATOR [address] [facility] [address] [place] [address] 01/19/2025 9:30 AM EDT Appointment [facility] S Radiology [address], 1st [place] [address] 01/19/2025 10:45 AM EDT Office Visit [place] [facility] [address], 1st [place] [address] Abhilash Bangura MD [address] [place] [address] 03/08/2025 1:00 PM EDT Office Visit [facility] [place] [address] [place] [address] Teresita Oconnell MD [address] [place] [address] documented as of this encounter Procedures Procedure Name Priority Date/Time Associated Diagnosis Comments XR MSK OUTSIDE IMAGES 11/15/2024 2:42 PM EDT documented in this encounter Results * XR MSK OUTSIDE IMAGES (11/15/2024 2:42 PM EDT) Anatomical Region Laterality Modality Radiographic Carolyne ging 11/15/2024 2:42 PM EDT Regina Katz CORK INSULATOR IMG XR PROCEDURES Final Res ult documented in this encounter Visit Diagnoses Not on filedocumented in this encounter Additional Health Concerns Infection Onset Date Last Indicated Resolved Time 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, 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 MANAGER Panic 10/26/2024 10/31/2024 Assessment Noted Time PHQ-9 Depression Total Score: 0 09/01/19 3:26 PM EDT A fall risk assessment has been complete d for the patient 11/10/2024 2:43 PM EDT A Body Mass Index follow-up plan has been documented for the patient 11/08/2024 5:14 PM EDT documented as of this encounter Care Teams Social Work Specialist Relationship Specialty Start Date End Date Laurie Gutierrez MD [address] [place] [address] PCP - General 12/09/23 Joshua Martínez MD [address] [place] [address] Consulting Physician Radiation Oncology 09/19/24 Paradise Pacheco, RN [facility] INTERVENT[facility]AL RADIOLOGY Registered Nurse 11/21/24 11/21/24 documented as of this encounter
--- OUTSIDE RECORDS SUMMARY | 2024-11-24 20:53 | XMS_ITS | Encounter Summary ---
Author Organization Healthcare Address [address] [place] [address] Care Team Providers Care Child Care Coordinator Name Role Phone Laurie Gutierrez MD Primary Care Provider [phone] Joshua Martínez MD Unavailable Jasmina Smith LPN Unavailable Unavailable Encounter Details Date Type Department Care Team (Late st Contact Info) Description 10/28/2024 Orders Only [facility] Radiation [id number] [place] [address] Radiation Oncology, Physician, [address] [place], [place] [id number] 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 Tobacco Use Types Packs/Day Years [...] any [facility] in the [facility] m [facility], were you homeless or living [...] time in the past 12 m [facility], were you homeless or living in a [...] drink first t laurie in the morning (EYE-MARKETING PLANNING MANAGER) to steady your nerves or to [...] [facility], 2nd [place] [address] 11/29/2024 11:00 AM EDT Office Visit [facility] Res[facility] [address] [facility], 2nd [place] [address] Satnam Colvin MD [address] [facility] [address] [place] [address] 11/29/2024 12:30 PM EDT Appointment [facility] 1 [address] [place] [address] 11/30/2024 1:30 PM EDT Appointment [facility] 1 [address] [place] [address] 12/01/2024 2:00 PM EDT Appointment [facility] 1 [address] [place] [address] 12/06/2024 11:40 AM EDT Appointment [facility] Radiation [address] [facility]. [id number] [place] [address] Haven Blum, MANAGER PROVIDER RELATIONS [address] [facility] [address] [place] [address] 01/19/2025 9:30 AM EDT Appointment [facility] S Radiology [address], [address]st [place] [address] 01/19/2025 10:45 AM EDT Office Visit [place] [facility] [address], [address]st [place] [address] Abhilash Bangura MD [address] [place] [address] 03/08/2025 1:00 PM EDT Office Visit [facility] [place] [address] [facility]. [address] [place] [address] Teresita Oconnell MD [address] [place] [address] documented as of this encounter [...] documented as of this encounter Care Teams Child Care Coordinator Relationship Specialty Start Date End Date Laurie Gutierrez MD [address] [place] [address] PCP - General 12/09/23 Joshua Martínez MD [address] [place] [address] Consulting Physician Radiation Oncology 09/19/24 Jasmina Smith LPN VALUE-[place] [address] TCM Nurse 10/19/24 11/01/24 documented as of this encounter
--- OUTSIDE RECORDS SUMMARY | 2024-11-24 20:53 | XMS_ITS | Encounter Summary ---
Author Organization Healthcare Address [address] [place] [address] Care Team Providers Care Government Property Inspector Name Role Phone Laurie Gutierrez MD Primary Care Provider [phone] Joshua Martínez MD Unavailable Jasmina Smith LPN Unavailable Unavailable Encounter Details Date Type Department Care Team (Late st Contact Info) Description 11/01/2024 Orders Only [facility] Radiation [id number] [place] [address] Radiation Oncology, Physician, [address] [place], [place] [id number] 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 Tobacco Use Types Packs/Day Years [...] first t laurie in the morning (EYE-CLINICAL PSYCHOLOGY PROFESSOR) to steady your nerves or to get [...] & Respiratory [address] [facility], 2nd [place] [address] 11/29/2024 11:00 AM EDT Office Visit [facility]ck [facility] Respiratory [address] [facility], [address]nd [place] [address] Satnam Colvin MD [address] [facility] Nuria Deg[address] [facility] [address] [place] [address] 11/29/2024 12:30 PM EDT Appointment [facility] 1 [address] [place] [address] 11/30/2024 1:30 PM EDT Appointment [facility] 1 [address] [place] [address] 12/01/2024 2:00 PM EDT Appointment [facility] [address] [place] [address] 12/06/2024 11:40 AM EDT Appointment [facility] Radiation [id number] [place] [address] Haven Blum, BOAT OUTFITTER [address] [place] [address] 01/19/2025 9:30 AM EDT Appointment [facility] S Radiology [address], 1st [place] [address] 01/19/2025 10:45 AM EDT Office Visit [place] [facility] [address], 1st [place] [address] Abhilash Bangura MD [address] [place] [address] 03/08/2025 1:00 PM EDT Office Visit [facility] [place] 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, BRAZING MACHINE FEEDER Panic 10/26/2024 10/31/2024 Assessment Noted Time PHQ-9 Depression Total Score: 0 09/01/19 3:26 PM EDT A fall risk assessment has been complete d for the patient 10/06/2024 2:29 PM EDT A Body Mass Index follow-up plan has been documented for the patient 10/31/2024 4:09 PM EDT documented as of this encounter Care Teams Government Property Inspector Relationship Specialty Start Date End Date Laurie Gutierrez MD [address] [place] [address] PCP - General 12/09/23 Joshua Martínez MD [address] [place], [place] [address]D [place] [address] Consulting Physician Radiation Oncology 09/19/24 Jasmina Smith LPN VALUE-BASED [place] [address] TCM Nurse 10/19/24 11/01/24 documented as of this encounter
--- OUTSIDE RECORDS SUMMARY | 2024-11-24 20:53 | XMS_ITS | Encounter Summary ---
Author Organization Healthcare Address [address] [place] [address] Care Team Providers Care Mop Machine Operator Name Role Phone Laurie Gutierrez MD Primary Care Provider [phone] Joshua Martínez MD Unavailable Jasmina Smith LPN Unavailable Unavailable Encounter Details Date Type Department Care Team (Late st Contact Info) Description 10/27/2024 Orders Only [facility] CC Radiation [address] [id number] [place] [address] Radiation Oncology, Physician, [address] [place], [place] [phone] 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 Tobacco Use Types Packs/Day Years [...] in the past 12 m [facility], were you homeless or living in a [...] drink first t laurie in the morning (EYE-PUMP ERECTOR) to steady your nerves or to get [...] [address] [facility], 2nd [place] [address] 11/29/2024 11:00 AM EDT Office Visit [facility]ck [facility] Respiratory [address] [facility], 2nd [place] [address] Satnam Colvin MD [address] [facility] [address] [place] [address] 11/29/2024 12:30 PM EDT Appointment [facility] 1 [address] [place] [address] 11/30/2024 1:30 PM EDT Appointment [facility] 1 [address] [place] [address] 12/01/2024 2:00 PM EDT Appointment [facility] 1 [address] [place] [address] 12/06/2024 11:40 AM EDT Appointment [facility] CC Radiation [address] [facility]. [id number] [place] [address] Haven Blum, APPLE CHECKER [address] [facility] [address] [place] [address] 01/19/2025 9:30 AM EDT Appointment [facility] S Radiology [address], 1st [place] [address] 01/19/2025 10:45 AM EDT Office Visit [place] [facility] [address], [address]st [place] [address] Abhilash Bangura MD [address] [place] [address] 03/08/2025 1:00 PM EDT Office Visit [facility] [place] [address] [facility]. [address] [place] [address] Teresita Oconnell MD [address] [place] [address] documented as of this encounter [...] documented as of this encounter Care Teams Mop Machine Operator Relationship Specialty Start Date End Date Laurie Gutierrez MD [address] [place] [address] PCP - General 12/09/23 Joshua Martínez MD [address] [place] [address] [address] [place] [address] Consulting Physician Radiation Oncology 09/19/24 Jasmina Smith LPN VALUE-BASED [place] [address] TCM Nurse 10/19/24 11/01/24 documented as of this encounter
--- OUTSIDE RECORDS SUMMARY | 2024-11-24 20:53 | XMS_ITS | Encounter Summary ---
Author Organization Healthcare Address [address] [place] [address] Care Team Providers Care Manager Shipping Name Role Phone Laurie Gutierrez MD Primary Care Provider [phone] Joshua Martínez MD Unavailable Encounter Details Date Type Department Care Team (Latest Contact Info) Description 11/15/2024 Travel 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 Tobacco Use Types Packs/Day [...] 0 08/31/2024 Housing Stability Vital Sign Answer Gergor e Recorded In the last 12 months, [...] drink first t laurie in the morning (EYE-FORENSIC MEDICAL EXAMINER) to steady your nerves or to get rid of a hangover? 0 10/27/2024 CAGE Questionnaire Score 0 025 Utilities Answer Date Recorded In the past 12 months has e [employer], gas, oil, or water [employer] threatened to shut off services in your home? No 10/26/2024 Comments No Sex and Gender Information Value Date Recorded Sex Assigned at Not on file Legal Sex Female 8:32 PM EDT Gender Identity Not on file Sexual Orientation Not on file documented as of this encounter Functional Status * Calculated C-SSRS Risk Score (Lifetime/Recent) Answer Date of Assessment Author No Risk Indicated 11/15/2024 8:30 PM EDT Yin [place] * Question Answer Date of Assessment Author 1. Wish to be (Past 1 Month) No 025 8:30 PM EDT Clare [place] 2. Non-Specific Active Suici radha Thoughts (Past 1 Month) No 11/15/2024 8:30 PM EDT Clare [place] 6. Suicidal Behavior (Lifetime) No 8:30 PM EDT Clare [place] documented as of this encounter Plan of Treatment Upcoming Encounters Date Type Department Care Team (Late st Contact Info) Description 11/29/2024 10:30 AM EDT Clinical Support [facility] [address] [facility], 2nd [place] [address] 11/29/2024 11:00 AM EDT Office Visit [facility] [address] [facility], [address]nd [place] [address] Satnam Colvin MD [address] [facility] [address] [place] [address] 11/29/2024 12:30 PM EDT Appointment [facility] 1 [address] [place] [address] 11/30/2024 1:30 PM EDT Appointment [facility] 1 [address] [place] [address] 12/01/2024 2:00 PM EDT Appointment [facility] 1 [address] [place] [address] 12/06/2024 11:40 AM EDT Appointment [facility] Radiation [address] [facility]. [id number] [place] [address] Haven Blum, PIPE SMOKER MACHINE OPERATOR [address] [facility] [address] [place] [address] 01/19/2025 9:30 AM EDT Appointment [facility] S Radiology [address], 1st [place] [address] 01/19/2025 10:45 AM EDT Office [facility] [place] [facility] [address], [address]st [place] [address] Abhilash Bangura MD [address] [place] [address] 03/08/2025 1:00 PM EDT Office Visit [facility] Cliff Wenceslao [address] 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, LEAF SORTER Panic 10/26/2024 10/31/2024 Assessment Noted Time PHQ-9 Depression Total Score: 0 09/01/19 25 3:26 PM EDT A fall risk assessment has been complete d for the patient 11/10/2024 2:43 PM EDT A Body Mass Index follow-up plan has been documented for the patient 11/08/2024 5:14 PM EDT documented as of this encounter Care Teams Manager Shipping Relationship Specialty Start Date End Date Laurie Gutierrez MD [address] [place] [address] PCP - General 12/09/23 Joshua Martínez MD [address] [place] [phone] Consulting Physician Radiation Oncology 09/19/24 documented as of this encounter
--- OUTSIDE RECORDS SUMMARY | 2024-11-24 20:53 | XMS_ITS | Encounter Summary ---
Author Organization Healthcare Address [address] [place] [address] Care Team Providers Care Oil Pipe Inspector Helper Name Role Phone Laurie Gutierrez MD Primary Care Provider Joshua Martínez MD Unavailable Paradise Pacheco RN Unavailable Unavailab le Encounter Details Date Type Department Care Team (Late st Contact Info) Description 11/15/2024 Orders Only External Location [address] [place] [address] Provider, External 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 Tobacco Use Types [...] any time in the past 12 m [facility], were you homeless or [...] any time in the past 12 m [facility], were you homeless or living in a [place] [facility] (including now)? No 11/21/2024 CAGE ASSESSMENT Answer [...] drink first t laurie in the morning (EYE-BUFFING AND POLISHING WHEEL REPAIRER) to steady your nerves or to get rid of a hangover? 0 10/27/2024 CAGE Questionnaire Score 0 025 Utilities Answer Date Recorded In the past 12 months has e [employer], gas, oil, or water [employer] threatened to shut off services in your [...] Author No Risk Indicated 11/21/2024 7:39 AM JLUIAT Stephanie Pierre RN * Question Answer Date of Assessment Author 1. Wish to be (Past 1 Month) No 025 7:39 AM JULIAT Flor Pierre RN 2. Non-Specific Active Suici radha Thoughts (Past 1 Month) No 11/21/2024 7:39 AM JULIAT Gerson Pierre RN 6. Suicidal Behavior (Lifetime) No 7:39 AM JULIAT Flor Pierre RN documented as of this encounter Plan of Treatment Upcoming Encounters Date Type Department Care Team (Late st Contact Info) Description 11/29/2024 10:30 AM EDT Clinical Support Pav [facility] Head, Neck & Respiratory [address] [facility], 2nd [place] [address] 11/29/2024 11:00 AM EDT Office Visit Pav [facility] Head[facility] Neck & Respiratory [address] [facility], 2nd [place] [address] Satnam Colvin MD [address] [facility] [address] [place] [address] 11/29/2024 12:30 PM EDT Appointment [facility] 1 [address] [place] [address] 11/30/2024 1:30 PM EDT Appointment [facility] 1 [address] [place] [address] 12/01/2024 2:00 PM EDT Appointment [facility] 1 [address] [place] [address] 12/06/2024 11:40 AM EDT Appointment [facility] CC Radiation [address] [facility]. [id number] [place] [address] Haven Blum, COMMISSARY CLERK [address] [facility] [address] [place] [address] 01/19/2025 9:30 AM EDT Appointment P[facility] S Radiology [address], 1st [place] [address] 01/19/2025 10:45 AM EDT Office Visit [place] [facility] [address], 1st [place] [address] Abhilash Bangura MD [address] [place] [address] 03/08/2025 1:00 PM EDT Office Visit [facility] Leighton Wenceslao [address] [place] [address] Teresita Oconnell MD [address] [place] [address] documented as of this encounter Procedures Procedure Name Priority Date/Time Associated Diagnosis Comments XR MSK OUTSIDE IMAGES 11/15/2024 2:42 PM EDT documented in this encounter Results * XR MSK OUTSIDE IMAGES (11/15/2024 2:42 PM EDT) Anatomical Region Laterality Modality Radiographic Carolyne ging 11/15/2024 2:42 PM EDT us External Provider IMG XR PROCEDURES Final Result documented in this encounter Visit Diagnoses Not on filedocumented in this encounter Additional Health Concerns Infection Onset Date Last Indicated Resolved Time 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, RN SURGERY ICU Panic 10/26/2024 10/31/2024 Assessment Noted Time PHQ-9 Depression Total Score: 0 09/01/19 25 3:26 PM EDT A fall risk assessment has been complete d for the patient 11/10/2024 2:43 PM EDT A Body Mass Index follow-up plan has been documented for the patient 11/08/2024 5:14 PM EDT documented as of this encounter Care Teams Oil Pipe Inspector Helper Relationship Specialty Start Date End Date Laurie Gutierrez MD [address] [place] [address] PCP - General 12/09/23 Joshua Martínez MD 800 [facility] [address] [place] [phone] Consulting Physician Radiation Oncology 09/19/24 Paradise Pacheco, RN CH-VASCULAR & INTERVENTIONAL RADIOLOGY Registered Nurse 11/21/24 11/21/24 documented as of this encounter
--- OUTSIDE RECORDS SUMMARY | 2024-11-24 20:54 | XMS_ITS | Encounter Summary ---
Author Organization Healthcare Address [address] [place] [address] Care Team Providers Care Towel Sewer Name Role Phone Laurie Gutierrez MD Primary Care Provider [phone] Joshua Martínez MD Unavailable Jasmina Smith LPN Unavailable Unavailable Reason for Visit * Reason Comments Resource Navigation Encounter Details Date Type Department Care Team (Late st Contact Info) Description 10/28/2024 Social Work Psych Oncology [address] [place] [address] Mariah Rowley 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 Tobacco Use Types [...] drink first t laurie in the morning (EYE-TOP COLLAR MAKER) to steady your nerves or to [...] Visit Disease Status: Established Patient Clinic Location: [facility] Disease Type: Lung & Bronchus, Brain & Other Nervous System Education Provided: Lodging Intervention Level: 2 Units (1 unit = 15 minutes): 1 Narrative: INFORMATICS PHYSICIAN LIAISON met with pt along with INFORMATICS PHYSICIAN LIAISON [place] to follow up on VM regarding HL. Pt currently inpatient but wondering about staying at HL after discharge. Pt wanting to stay at HL while finishing radiation. INFORMATICS PHYSICIAN LIAISON informed pt that a referral cannot be submitted while pt still inpatient and that once pt is discharged INFORMATICS PHYSICIAN LIAISON can look into getting pt set up to stay. Pt voiced understanding and appreciation for the assistance. No further needs identified. INFORMATICS PHYSICIAN LIAISON to remain available for any ongoing needs or support. INFORMATICS PHYSICIAN LIAISON working with pt's inpatient care team to coordinate dc plan and determine when to submit HL referral. Mariah Rowley MSW, INFORMATICS PHYSICIAN LIAISON [facility] Psych-Oncology Services documented in this encounter Plan of Treatment Upcoming Encounters Date Type Department Care Team ([facility] st Contact Info) Description 11/29/2024 10:30 AM EDT Clinical Support Pav CC Head, Neck & Respiratory [address] [facility], 2nd [place] [address] 11/29/2024 11:00 AM EDT Office Visit Pav CC Head, Neck & Respiratory [address] [facility], 2nd [place] [address] Satnam Colvin MD [address] [facility] [address] [place] [address] 11/29/2024 12:30 PM EDT Appointment [facility] 1 [address] [place] [address] 11/30/2024 1:30 PM EDT Appointment [facility] 1 [address] [place] [address] 12/01/2024 2:00 PM EDT Appointment [facility] 1 [address] [place] [address] 12/06/2024 11:40 AM EDT Appointment [facility] CC Radiation [address] [facility]. [id number] [place] [address] Haven Blum, JOB COACH 800 [facility] [address] [place] [address] 01/19/2025 9:30 AM EDT Appointment [facility] S Radiology [address], 1st [place] [address] 01/19/2025 10:45 AM EDT Office Visit [place] [facility] [address], 1st [place] [address] Abhilash Bangura MD [address] [place] [address] 03/08/2025 1:00 PM EDT Office Visit [facility] [place] [address] [place] [address] Teresita Oconnell MD [address] [place] [address] documented as of this encounter [...] documented as of this encounter Care Teams Towel Sewer Relationship Specialty Start Date End Date Laurie Gutierrez MD [address] [place] [address] PCP - General 12/09/23 Joshua Martínez MD [address] [place] [address] Consulting Physician Radiation Oncology 09/19/24 Jasmina Smith LPN VALUE-BASED [place] [address] TCM Nurse 10/19/24 11/01/24 documented as of this encounter
--- OUTSIDE RECORDS SUMMARY | 2024-11-24 20:54 | XMS_ITS | Encounter Summary ---
Author Organization Healthcare Address [address] [place] [address] Care Team Providers Care Senior Sustainability Advisor Name Role Phone Laurie Gutierrez MD Primary Care Provider [phone] Joshua Martínez MD Unavailable Jasmina Smith LPN [...] any time in the past 12 m [facility], were you homeless or living [...] any time in the past 12 m [facility], were you homeless or living [...] drink first t laurie in the morning (EYE-FIELD ADJUSTER) to steady your nerves or to [...] Pav CC Head, Neck & Respiratory 800 [facility], 2nd [place] [address] 11/29/2024 11:00 AM EDT Office Visit Pav CC Head, Neck & Respiratory [address] [facility], 2nd [place] [address] Satnam Colvin MD [address] [facility] [address] [place] [address] 11/29/2024 12:30 PM EDT Appointment [facility] 1 [address] [place] [address] 11/30/2024 1:30 PM EDT Appointment [facility] 1 [address] [place] [address] 12/01/2024 2:00 PM EDT Appointment [facility] 1 [address] [place] [address] 12/06/2024 11:40 AM EDT Appointment P[facility] CC Radiation [address] [facility]. [id number] [place] [address] Haven Blum, DRAWING IN MACHINE TENDER [address] [facility] [address] [place] [address] 01/19/2025 9:30 AM EDT Appointment PAV S Radiology [address], 1st [place] [address] 01/19/2025 10:45 AM EDT Office Visit [place] [facility] [address], 1st [place] [address] Abhilash Bangura MD [address] [place] [address] 03/08/2025 1:00 PM EDT Office Visit [facility] Hurricane Wenceslao 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, SUPERVISOR FINISHING Panic 10/26/2024 10/31/2024 Assessment Noted Time PHQ-9 Depression Total Score: 0 09/01/19 25 3:26 PM EDT A fall risk assessment has been complete d for the patient 10/06/2024 2:29 PM EDT A Body Mass Index follow-up plan has been documented for the patient 10/31/2024 4:09 PM EDT documented as of this encounter Care Teams Senior Sustainability Advisor Relationship Specialty Start Date End Date Laurie Gutierrez MD [address] [place] [address] PCP - General 12/09/23 Joshua Martínez MD [address] [place] [phone] Consulting Physician Radiation Oncology 09/19/24 Jasmina Smith LPN VALUE-[place] [address] TCM Nurse 10/19/24 11/01/24 documented as of this encounter
--- OUTSIDE RECORDS SUMMARY | 2024-11-24 20:54 | XMS_ITS | Encounter Summary ---
Author Organization Healthcare Address [address] [place] [address] Care Team Providers Care Fruit Or Nut Picker Name Role Phone Laurie Gutierrez MD Primary Care Provider [phone] Joshua Martínez MD Unavailable Jasmina Smith LPN Unavailable Unavailable Encounter Details Date Type Department Care Team (Late st Contact Info) Description 10/31/2024 Orders Only [facility] CC Radiation [address] [id number] [place] [address] Radiation Oncology, Physician, [address] [place], [place] [id number] 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 Tobacco Use Types Packs/Day Years [...] time in the past 12 m [facility], were you homeless or living in a [...] in the past 12 m [facility], were you homeless or living [...] drink first t laurie in the morning (EYE-SANDER PORTABLE MACHINE) to steady your nerves or to get [...] CC Head, Neck & Respiratory 800 [facility], 2nd [place] [address] 11/29/2024 11:00 AM EDT Office Visit Pav CC Head, Neck & Respiratory 800 [facility], 2nd [place] [address] Satnam Colvin MD 800 [facility] [address] [place] [address] 11/29/2024 12:30 PM EDT Appointment [facility] 1 [address] [place] [address] 11/30/2024 1:30 PM EDT Appointment [facility] 1 [address] [place] [address] 12/01/2024 2:00 PM EDT Appointment [facility] 1 [address] [place] [address] 12/06/2024 11:40 AM EDT Appointment P[facility] CC Radiation 800 [facility]. [id number] [place] [address] Haven Blum, ADJUNCT COMMUNICATIONS FACULTY MEMBER 800 [facility] [address] [place] [address] 01/19/2025 9:30 AM EDT Appointment PAV S Radiology [address], 1st [place] [address] 01/19/2025 10:45 AM EDT Office Visit [place] [facility] [address], 1st [place] [address] Abhilash Bangura MD [address] [place] [address] 03/08/2025 1:00 PM EDT Office Visit [facility] [place] [address] [facility]. [address] [place] [address] Teresita Oconnell MD [address] [place] [address] documented as of this encounter [...] documented as of this encounter Care Teams Fruit Or Nut Picker Relationship Specialty Start Date End Date Laurie Gutierrez MD [address] [place] [address] PCP - General 12/09/23 Joshua Martínez MD [address] [place] [address] [address] [place] [address] Consulting Physician Radiation Oncology 09/19/24 Jasmina Smith LPN VALUE-BASED [place] [address] TCM Nurse 10/19/24 11/01/24 documented as of this encounter
--- OUTSIDE RECORDS SUMMARY | 2024-11-24 20:55 | XMS_ITS | Encounter Summary ---
Author Organization Healthcare Address [address] [place] [address] Care Team Providers Care Data Services Developer Name Role Phone Laurie Gutierrez MD Primary Care Provider [phone] Joshua Martínez MD Unavailable Encounter Details Date [...] any time in the past 12 m [facility], were you homeless or [...] any time in the past 12 m [facility], were you homeless or [...] drink first t laurie in the morning (EYE-LOCKER OPERATOR) to steady your nerves or to get rid of a hangover? 0 10/27/2024 CAGE Questionnaire Score 0 025 Utilities Answer Date Recorded In the past 12 months has [employer], gas, oil, or water company threatened to [...] not drink 11/08/2024 11:13 AM EDT Kasandra Rliey Q3: How often do you have six or more drinks on one occasion? Never 11/08/2024 11:13 AM EDT Kasandra Riley documented as of this encounter Plan of Treatment Upcoming Encounters Date Type Department Care Team (Abhilash st Contact Info) Description 11/29/2024 10:30 AM EDT Clinical Support Pav CC Head, Neck & Respiratory [address] [facility], 2nd [place] [address] 11/29/2024 11:00 AM EDT Office Visit Pav CC Head, Neck & Respiratory [address] [facility], 2nd [place] [address] Satnam Colvin MD [address] [facility] [address] [place] [phone] 11/29/2024 12:30 PM EDT Appointment [facility] 1 [address] [place] [address] 11/30/2024 1:30 PM EDT Appointment [facility] 1 [address] [place] [address] 12/01/2024 2:00 PM EDT Appointment [facility] 1 [address] [place] [address] 12/06/2024 11:40 AM EDT Appointment P[facility] CC Radiation [address] [facility]. [id number] [place] [address] Haven Blum, WEIGHT LOSS COUNSELOR [address] [facility] [address] [place] [address] 01/19/2025 9:30 AM EDT Appointment PAV S Radiology [address], 1st [place] [address] 01/19/2025 10:45 AM EDT Office Visit [place] [facility] [address], 1st [place] [address] Abhilash Bangura MD [address] [place] [address] 03/08/2025 1:00 PM EDT Office Visit [facility] [place] Wenceslao [address] 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, POLYMER MATERIALS CONSULTANT Panic 10/26/2024 10/31/2024 Assessment Noted Time PHQ-9 Depression Total Score: 0 09/01/19 25 3:26 PM EDT A fall risk assessment has been complete d for the patient 11/08/2024 2:02 PM EDT A Body Mass Index follow-up plan has been documented for the patient 11/08/2024 5:14 PM EDT documented as of this encounter Care Teams Data Services Developer Relationship Specialty Start Date End Date Laurie Gutierrez MD [address] [place] [address] PCP - General 12/09/23 Joshua Martínez MD [address] [place] [phone] Consulting Physician Radiation Oncology 09/19/24 documented as of this encounter
--- OUTSIDE RECORDS SUMMARY | 2024-11-24 20:55 | XMS_ITS | Encounter Summary ---
Author Organization Healthcare Address [address] [place] [address] Care Team Providers Care Electrician [employer] Name Role Phone Laurie Gutierrez MD Primary Care Provider [phone] Joshua Martínez MD Unavailable Reason for Visit * Reason Comments Distress Screen Follow-up Encounter Details Date Type Department Care Team (Late st Contact Info) Description 11/08/2024 Social Work Psych Oncology [address] [place] [address] Mariah Rowley 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 Tobacco Use Types [...] any time in the past 12 m [facility], were you homeless or [...] any time in the past 12 m [facility], were you homeless or [...] drink first t laurie in the morning (EYE-GENERAL FREIGHT AGENT) to steady your nerves or to get rid of a hangover? 0 10/27/2024 CAGE Questionnaire Score 0 025 Utilities Answer Date Recorded In the past 12 months has th e [employer], gas, oil, or water company threatened to [...] Person Disease Status: Established Patient Clinic Location: [facility] Disease Type: Lung & Bronchus Services Provided: Gift / Gas Card Gift Card Type: ACS Transportation Tal[employer] Gift Card Amount: 50 Education Provided: Lodging Intervention Level: 2 Units (1 unit = 15 minutes): 2 Narrative: EXECUTIVE [employer]OUS CHEF met with pt and sister prior to appt to follow up on DT screen. EXECUTIVE SOUS CHEF introduced self and non urgent nature of visit. Pt stated she is doing okay but both asked about upcoming radiation treatments and whether or not those would be extended. EXECUTIVE SOUS CHEF explained that pt's radiation will not be extended but that EXECUTIVE [employer] CHEF had spoken to pt's care team and pt is due to return on 11/29-12/01 for more infusions. Pt asked about staying at [facility] and EXECUTIVE SOUS CHEF encouraged pt to reach out to [facility] to complete a self referral which pt agreeable to doing. Pt also asked about possible fuel and utility assistance.EXECUTIVE SOUS CHEF explained [address] and stated that pt would just need to bring in the bills she is wantingpaid. EXECUTIVE SOUS CHEF also explained that EXECUTIVE SOUS CHEF could bring over some ACS cards to pt in infusion. EXECUTIVE SOUS CHEF encouragedboth to reach out should any further needs arise or should they have issues when making a self referral to the [facility]. Both voiced understanding and appreciation for the assistance. No further needs identified. EXECUTIVE SOUS CHEF to remain available for any ongoing needs or support. EXECUTIVE SOUS CHEF met with pt while in infusion to provide pt with 50.00 in ACS cards. NAVEED Ashley, EXECUTIVE SOUS CHEF [facility] Psych-Oncology Services documented in this encounter Plan of Treatment Upcoming Encounters Date Type Department Care Team (Late st Contact Info) Description 11/29/2024 10:30 AM EDT Clinical Support [facility] [address] [facility] [place] [address] 11/29/2024 11:00 AM EDT Office Visit [facility] [address] [facility] [place] [address] Satnam Colvin MD [address] [facility] [address] [place] [address] 11/29/2024 12:30 PM EDT Appointment [facility] [address] [place] [address] 11/30/2024 1:30 PM EDT Appointment [facility] [address] [place] [address] 12/01/2024 2:00 PM EDT Appointment [facility] [address] [place] [address] 12/06/2024 11:40 AM EDT Appointment [facility] Radiation [address] [id number] [place] [address] Haven Blum, ENGLISH FACULTY MEMBER [address] [facility] [id number] [place] [address] 01/19/2025 9:30 AM EDT Appointment [facility] S Radiology [address] [place] [address] 01/19/2025 10:45 AM EDT Office Visit [facility] [address] [place] [address] Abhilash Bangura MD [address] [place] [address] 03/08/2025 1:00 PM EDT Office Visit [facility] Wenceslao 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, WORK[employer]ACE TRAINER AND ASSESSOR Panic 10/26/2024 10/31/2024 Assessment Noted Time PHQ-9 Depression Total Score: 0 09/01/19 25 3:26 PM EDT A fall risk assessment has been complete d for the patient 11/08/2024 2:02 PM EDT A Body Mass Index follow-up plan has been documented for the patient 11/08/2024 5:14 PM EDT documented as of this encounter Care Teams Electrician Marine Relationship Specialty Start Date End Date Laurie Gutierrez MD [address] [place] [address] PCP - General 12/09/23 Joshua Martínez MD [address] [place], [place] [id number] [place] [address] Consulting Physician Radiation Oncology 09/19/24 documented as of this encounter
--- OUTSIDE RECORDS SUMMARY | 2024-11-24 20:55 | XMS_ITS | Data Portability ---
Author Organization [facility] Address [address] [place] [address] Assessment Encounter Date Assessment Date Assessment LastModified by Organization Details LastModified Time 12/02/2021 12/02/2021 Patient tolerated procedure well. Advised that mild vaginal discharge may occur for 24hrs and spotting for 48hrs. Patient will report passage of clots, onset of profuse bleeding, foul vaginal odor, fever and/or pelvic pain. [email or web address] Not available 12/02/2021 10:59:59 Plan of Treatment Reminders Order Date Submit Date Provider Last Modified By Organization Details Last Modified Time Details Appointments None recorded. Lab test, urine 2021 022 [employer], [address] [place] [address] , [place], [address], 2 12:54:31 cytology report, thin prep, smear or scraping, cervical or vaginal 2021 022 [facility], [address], [place], [address], 2 15:09:24 pathology study 2021 022 [facility], [address], [place], [address], 2 15:09:26 pathology study 2021 022 [facility], [address], [address], [place], [address], 15:09:59 HbA1c (hemoglobin A1c), blood 2021 [facility], [address], [place], [address], 06:15:19 CMP, serum or plasma 2021 [facility], [address], [place], [address], 06:15:18 lipid panel, serum 2021 [facility], [address], [place], [address], 06:15:19 CBC w/ auto diff 2021 [facility], [address], [place], [address], 06:15:18 Referral gynecologis t referral 2021 [email or web address] Wilma Gunn [employer] T[employer]ER ASSISTANT, [address] [place] [address] Rd, [place], [address], 15:14:49 Procedures None recorded. Surgeries None recorded. Imaging LDCT, chest, for lung cancer screening 2021 [email or web address] [facility]), [address] [place] [address] , [place], [address], 10:05:49 US, transvagina l 2021 [email or web address] [employer], [address] [place] [address] , [place], [address], 11:51:30 Medication Orders metformin ER 500 mg tablet,exte nded release 24 hr 2021 [facility], [address] [place] [address], [id number], 09:41:16 omeprazole 20 mg capsule,del ayed release 2021 [facility], [address] [place] [address], [id number], 09:41:14 atorvastati n 40 mg tablet 2021 [facility], [address] [place] [address], [id number], 09:41:14 gabapentin 600 mg tablet 2021 [facility], [address] [place] [address], [id number], 09:41:15 carvedilol 6.25 mg tablet 2021 [facility], [address] [place] [address], [id number], 09:41:15 triamterene 37.5 mg-hydrochl orothiazide 25 mg capsule 2021 [facility], [address] [place] [address], [id number], 09:41:16 amlodipine 5 mg tablet 2021 [facility], [address] [place] [address], [id number], 09:41:15 cyanocobala min (vit B-12) ER 1,000 mcg tablet,exte nded release 2021 [facility], [address] [place] [address], [id number], 09:41:14 Patient TargetsNo targets recorded. Patient Instructions Encounter Date Encounter Id Patient Instructions Last Modified By Organization Details Last Modified Time 09/13/2021 [id number] learning about t ype 2 diabetes Not available 09/13/2021 09:23:25 type 2 diabetes: care instructions [email or web address] Not available 09/13/2021 09:23:25 gastroesophageal reflux disease (GERD): care instructions [email or web address] Not available 09/13/2021 09:23:25 high cholesterol : care instructions [email or web address] Not available 09/13/2021 09:23:25 vaginal bleeding after menopause: care instructions [email or web address] Not available 09/13/2021 09:35:03 high blood press ure: care instructions [email or web address] Not available 09/13/2021 09:23:25 learning about h igh blood pressure [email or web address] Not available 09/13/2021 09:23:25 discussed vagina l bleeding she is past due for NATURAL SCIENCE CURATOR exam will refer to NATURAL SCIENCE CURATOR for further evaluation and workup pt verbalized understanding, apt made discussed healthy diet and diabetes plan of care f/u in 6 months for routine diabetes visit [email or web address] Not available 09/13/2021 10:53:07 09/25/2021 [id number] 1. Schedule pelv ic ultrasound, OV and endometrial bx in [facility] to evaluate PMB. Not available 09/26/2021 19:53:27 10/21/2021 [id number] US images review ed and discussed with Teresa. Anteverted uterus normal size with 2 small intramural fibroids measuring 1.4 and 1.5 cms. Endometrium measured 5 mm. Right and left ovaries small with normal appearance. Endometrial bx done today. Plan topical estrogens intravaginally twice a week if pathology negative. Not available 10/21/2021 11:06:55 12/02/2021 [id number] 1. Findings discussed with patient. Post-procedure instructions [...] procedure reviewed in detail and preformed today. [email or web address] Not available 12/02/2021 10:59:59 12/18/2021 [id number] smoking cessatio n counseling, greater than 3 [...] Not available 12/19/2021 19:09:28 Reason for Referral [employer] Referral for Po stmenopausal bleeding Referring Physician: Evangelina Nguyen, Family Medicine, Encounter Date: 09/13/2021 Results Created Date Observation Date Name Description Value Unit Range Abnormal Flag Note LastModifiedBy Organization Detail LastModifiedTime 09/14/1909/14/2021 CBC WITH DIFFE RENTI AL/PL ATELE T WBC 7.0 x10e3 /uL 3.4-10 .8 Not Available [facility] ([facility]) [address], [place], [address], 09/14/2021 06:15:18 09/14/19 22 09/14/2021 CBC WITH DIFFE RENTI AL/PL ATELE T RBC 4.67 x10e6 /uL 3.77-5 .28 Not Available [facility] ([facility]) [address], [place], [address], 09/14/2021 06:15:18 09/14/19 22 09/14/2021 CBC WITH DIFFE RENTI AL/PL ATELE T hemoglobin 14.6 g/dL 11.1-1 5.9 Not Available [facility] ([facility]) [address], [place], [address], 09/14/2021 06:15:18 09/14/19 22 09/14/2021 CBC WITH DIFFE RENTI AL/PL ATELE T hematocrit 44.4 % 34.0-4 6.6 Not Available [facility] ([facility]) [address], [place], [address], 09/14/2021 06:15:18 09/14/19 22 09/14/2021 CBC WITH DIFFE RENTI AL/PL ATELE T MCV 95 fL 79-97 Not Available [facility] ([facility]) [address] [place], [address], 09/14/2021 06:15:18 09/14/19 22 09/14/2021 CBC WITH DIFFE RENTI AL/PL ATELE T MCH 31.3 pg 26.6-3 3.0 Not Available [facility] ([facility]) [address] [place], [address], 09/14/2021 06:15:18 09/14/19 22 09/14/2021 CBC WITH DIFFE RENTI AL/PL ATELE T MCHC 32.9 g/dL 31.5-3 5.7 Not Available [facility] ([facility]) [address] [place], [address], 09/14/2021 06:15:18 09/14/19 22 09/14/2021 CBC WITH DIFFE RENTI AL/PL ATELE T RDW 11.8 % 11.7-1 5.4 Not Available [facility] ([facility]) [address], [place], [address], 09/14/2021 06:15:18 09/14/19 22 09/14/2021 CBC WITH DIFFE RENTI AL/PL ATELE T platelets 178 x10e3 /uL 150-45 0 Not Available [facility] ([facility]) [address], [place], [address], 09/14/2021 06:15:18 09/14/19 22 09/14/2021 CBC WITH DIFFE RENTI AL/PL ATELE T neutrophils 61 % not estab. Not Available [facility] ([facility]) [address], [place], [address], 09/14/2021 06:15:18 09/14/19 22 09/14/2021 CBC WITH DIFFE RENTI AL/PL ATELE T lymphs 30 % not estab. Not Available [facility] ([facility]) [address], [place], [address], 09/14/2021 06:15:18 09/14/19 22 09/14/2021 CBC WITH DIFFE RENTI AL/PL ATELE T monocytes 4 % not estab. Not Available [facility] ([facility]) [address], [place], [address], 09/14/2021 06:15:18 09/14/19 22 09/14/2021 CBC WITH DIFFE RENTI AL/PL ATELE T eos 4 % not estab. Not Available [facility] ([facility]) [address], [place], [address], 09/14/2021 06:15:18 09/14/19 22 09/14/2021 CBC WITH DIFFE RENTI AL/PL ATELE T basos 1 % not estab. Not Available [facility] ([facility]) [address], [place], [address], 09/14/2021 06:15:18 09/14/19 22 09/14/2021 CBC WITH DIFFE RENTI AL/PL ATELE T immature cells DAM TENDER ASSISTANT Not Available [facility] ([facility]) [address] [place], [address], 09/14/2021 06:15:18 09/14/19 22 09/14/2021 CBC WITH DIFFE RENTI AL/PL ATELE T neutrophils (absolute) 4.3 x10e3 /uL 1.4-7. 0 Not Available [facility] ([facility]) [address] [place], [address], 09/14/2021 06:15:18 09/14/19 22 09/14/2021 CBC WITH DIFFE RENTI AL/PL ATELE T lymphs (absolute) 2.1 x10e3 /uL 0.7-3. 1 Not Available [facility] ([facility]) [address] [place], [address], 09/14/2021 06:15:18 09/14/19 22 09/14/2021 CBC WITH DIFFE RENTI AL/PL ATELE T monocytes(ab solute) 0.3 x10e3 /uL 0.1-0. 9 Not Available [facility] ([facility]) [address] [place], [address], 09/14/2021 06:15:18 09/14/19 22 09/14/2021 CBC WITH DIFFE RENTI AL/PL ATELE T eos (absolute) 0.3 x10e3 /uL 0.0-0. 4 Not Available [facility] ([facility]) [address] [place], [address], 09/14/2021 06:15:18 09/14/19 22 09/14/2021 CBC WITH DIFFE RENTI AL/PL ATELE T baso (absolute) 0.1 x10e3 /uL 0.0-0. 2 Not Available [facility] ([facility]) [address] [place], [address], 09/14/2021 06:15:18 09/14/19 22 09/14/2021 CBC WITH DIFFE RENTI AL/PL ATELE T immature granulocytes 0 % not estab. Not Available [facility] ([facility]) [address], [place], [address], 09/14/2021 06:15:18 09/14/19 22 09/14/2021 CBC WITH DIFFE RENTI AL/PL ATELE T immature grans (abs) 0.0 x10e3 /uL 0.0-0. 1 Not Available [facility] ([facility]) [address], [place], [address], 09/14/2021 06:15:18 09/14/19 22 09/14/2021 CBC WITH DIFFE RENTI AL/PL ATELE T NRBC DAM TENDER ASSISTANT Not Available [facility] ([facility]) [address], [place], [address], 09/14/2021 06:15:18 09/14/19 22 09/14/2021 CBC WITH DIFFE RENTI AL/PL ATELE T hematology comments: DAM TENDER ASSISTANT Not Available [facility] ([facility]) [address], [place], [address], 09/14/2021 06:15:18 09/14/19 22 09/14/2021 COMP. METAB OLIC PANEL (14) glucose 129 mg/dL 65-99 above high normal Not Available [facility] ([facility]) [address], [place], [address], 09/14/2021 06:15:18 09/14/19 22 09/14/2021 COMP. METAB OLIC PANEL (14) BUN 14 mg/dL 8-27 Not Available [facility] ([facility]) [address] [place], [address], 09/14/2021 06:15:18 09/14/19 22 09/14/2021 COMP. METAB OLIC PANEL (14) creatinine 0.65 mg/dL 0.57-1 .00 Not Available [facility] ([facility]) [address] [place], [address], 09/14/2021 06:15:18 09/14/19 22 09/14/2021 COMP. METAB OLIC PANEL (14) eGFR 101 mL/mi n/1.7 3 >59 Not Available [facility] ([facility]) [address], [place], [address], 09/14/2021 06:15:18 09/14/19 22 09/14/2021 COMP. METAB OLIC PANEL (14) BUN/creatini ne ratio 22 -28 Not Available [facility] ([facility]) [address], [place], [address], 09/14/2021 06:15:18 09/14/19 22 09/14/2021 COMP. METAB OLIC PANEL (14) sodium 141 mmol/ L 134-14 4 Not Available [facility] ([facility]) [address] [place], [address], 09/14/2021 06:15:18 09/14/19 22 09/14/2021 COMP. METAB OLIC PANEL (14) potassium 4.3 mmol/ L 3.5-5. 2 Not Available [facility] ([facility]) [address] [place], [address], 09/14/2021 06:15:18 09/14/19 22 09/14/2021 COMP. METAB OLIC PANEL (14) chloride 100 mmol/ L 96-106 Not Available [facility] ([facility]) [address] [place], [address], 09/14/2021 06:15:18 09/14/19 22 09/14/2021 COMP. METAB OLIC PANEL (14) carbon dioxide, total 25 mmol/ L 20-29 Not Available [facility] ([facility]) [address], [place], [address], 09/14/2021 06:15:18 09/14/19 22 09/14/2021 COMP. METAB OLIC PANEL (14) calcium 9.4 mg/dL 8.7-10 .3 Not Available [facility] ([facility]) [address] [place], [address], 09/14/2021 06:15:18 09/14/19 22 09/14/2021 COMP. METAB OLIC PANEL (14) protein, total 7.2 g/dL 6.0-8. 5 Not Available [facility] ([facility]) [address], [place], [address], 09/14/2021 06:15:18 09/14/19 22 09/14/2021 COMP. METAB OLIC PANEL (14) albumin 4.5 g/dL 3.8-4. 9 Not Available [facility] ([facility]) [address] [place], [address], 09/14/2021 06:15:18 09/14/19 22 09/14/2021 COMP. METAB OLIC PANEL (14) globulin, total 2.7 g/dL 1.5-4. 5 Not Available [facility] ([facility]) [address] [place], [address], 09/14/2021 06:15:18 09/14/19 22 09/14/2021 COMP. METAB OLIC PANEL (14) A/G ratio 1.7 1.2-2. 2 Not Available [facility] ([facility]) [address] [place], [address], 09/14/2021 06:15:18 09/14/19 22 09/14/2021 COMP. METAB OLIC PANEL (14) bilirubin, total 0.6 mg/dL 0.0-1. 2 Not Available [facility] ([facility]) [address], [place], [address], 09/14/2021 06:15:18 09/14/19 22 09/14/2021 COMP. METAB OLIC PANEL (14) alkaline phosphatase 90 IU/L 44-121 Not Available [facility] ([facility]) [address], [place], [address], 09/14/2021 06:15:18 09/14/19 22 09/14/2021 COMP. METAB OLIC PANEL (14) AST (SGOT) 16 IU/L 0-40 Not Available [facility] ([facility]) [address] [place], [address], 09/14/2021 06:15:18 09/14/19 22 09/14/2021 COMP. METAB OLIC PANEL (14) ALT (SGPT) 13 IU/L 0-32 Not Available [facility] ([facility]) [address] [place], [address], 09/14/2021 06:15:18 09/14/19 22 09/14/2021 LIPID PANEL cholesterol, total 124 mg/dL 100-19 9 Not Available [facility] ([facility]) [address] [place], [address], 09/14/2021 06:15:19 09/14/19 22 09/14/2021 LIPID PANEL triglyceride s 67 mg/dL 0-149 Not Available [facility] ([facility]) [address] [place], [address], 09/14/2021 06:15:19 09/14/19 22 09/14/2021 LIPID PANEL HDL cholesterol 47 mg/dL >39 Not Available [facility] ([facility]) [address] [place], [address], 09/14/2021 06:15:19 09/14/19 22 09/14/2021 LIPID PANEL VLDL cholesterol ojsr 14 mg/dL 5-40 Not Available [facility] ([facility]) [address], [place], [address], 09/14/2021 06:15:19 09/14/19 22 09/14/2021 LIPID PANEL LDL chol calc ([facility]) 63 mg/dL 0-99 Not Available [facility] ([facility]) [address], [place], [address], 09/14/2021 06:15:19 09/14/19 22 09/14/2021 LIPID PANEL comment: DAM TENDER ASSISTANT Not Available [facility] ([facility]) [address], [place], [address], 09/14/2021 06:15:19 09/14/1909/14/2021 HEMOG LOBIN A1C hemoglobin A1C 6.8 % 4.8-5. 6 above high normal Predi abete s: 5.7 - 6.4 Diabe carolyn: >6.4 Glyce chyna contr ol for adult s with diabe carolyn: <7.0 Not Available [facility] ([facility]) [address], [place], [address], 09/14/2021 06:15:19 10/22/1910/23/2021 PATHO LOGY LEEANN Hoskins t Mater ial submi tted: . endom etriu m - ENDOM ETRIA L BIOPS Y Not Available [facility] ([facility]) [address], [place], [address], 10/23/2021 15:09:58 10/22/1910/23/2021 PATHO LOGTerry Hoskins t [...] TMZ 10/23 1246 Local Not Available [facility] ([facility]) [address] [place], [address], 10/23/2021 15:09:58 10/22/19 22 10/23/2021 PATHO LOGY REPOR T . Commen t Elect shira solo veronika d: . Rishi silverman MD, Patho logis t Not Available [facility] ([facility]) [address] [place], [address], 10/23/2021 15:09:58 10/22/19 22 10/23/2021 PATHO LOGY [...] AV 10/22 1024 Local Not Available [facility] ([facility]) [address], [place], [address], 10/23/2021 15:09:58 10/22/19 22 10/23/2021 PATHO LOGY REPOR T . Commen t Patho logis t provi ded ICD-1 0: N95.0 Not Available [facility] ([facility]) [address], [place], [address], 10/23/2021 15:09:58 10/22/19 22 10/23/2021 PATHO LOGY REPOR T . Commen t CPT . 61895 1 Not Available [facility] ([facility]) [address], [place], [address], 10/23/2021 15:09:58 12/03/19 22 12/04/2021 IGP, APTIM A HPV, RFX 16/18 ,45 diagnosis: Commen t NEGAT SVETLANA FOR INTRA EPITH ELIAL ALONSO N OR SHIRLEY LAUREANO . Not Available [facility] ([facility]) [address], [place], [address], 12/04/2021 15:09:24 12/03/19 22 12/04/2021 IGP, APTIM A HPV, RFX 16/18 ,45 specimen adequacy: Commen t Satis facto ry for evalu ation . Endoc ervic al and/o r squam ous metap lasti c cells (endo cervi josr compo nent) are prese nt. Not Available [facility] ([facility]) [address] [place], [address], 12/04/2021 15:09:24 12/03/19 22 12/04/2021 IGP, APTIM A HPV, RFX 16/18 ,45 clinician provided ICD10: Gato t R85.6 19 Z12.4 Not Available [facility] ([facility]) [address], [place], [address], 12/04/2021 15:09:24 12/03/19 22 12/04/2021 IGP, APTIM A HPV, RFX 16/18 ,45 performed by: Gato Chavez , Cytot echno logis t (ASCP ) Not Available [facility] ([facility]) [address] [place], [address], 12/04/2021 15:09:24 12/03/19 22 12/04/2021 IGP, APTIM A HPV, RFX 16/18 ,45 electronical ly signed by: Gato Nieves MD, Patho logis t Not Available [facility] ([facility]) [address] [place], [address], 12/04/2021 15:09:24 12/03/19 22 12/04/2021 IGP, APTIM A HPV, RFX 16/18 ,45 . . Not Available [facility] ([facility]) [address] [place], [address], 12/04/2021 15:09:24 12/03/19 22 12/04/2021 IGP, APTIM [...] ts do occur . Not Available [facility] ([facility]) [address] [place], [address], 12/04/2021 15:09:24 12/03/19 22 12/04/2021 IGP, APTIM A HPV, RFX 16/18 ,45 test methodology: Commen t This liqui d based ThinP rep(R ) pap test was ross rome with the use of an image guide meg wagner Not Available [facility] ([facility]) [address], [place], [address], 12/04/2021 15:09:24 12/03/19 22 12/04/2021 IGP, APTIM A HPV, RFX 16/18 ,45 HPV aptima Negati ve negati ve This nucle ic acid ampli ficat ion test detec ts fourt een high- risk HPV types (16,1 8,31, 33,35 ,39,4 5,51, 52,56 ,58,5 9,66, 68) witho ut diffe renti ation . Not Available [facility] ([facility]) [address], [place], [address], 12/04/2021 15:09:24 12/03/19 22 12/04/2021 PATHO LOGY REPOR T . Commen t Mater ial submi tted: . PART A: endoc ervix - ENDOC ERVIC AL CURET TAGE PART B: cervi x - CERVI JOSR BIOPS Y 1:00. Modif iers: 1:00 Not Available [facility] ([facility]) [address], [place], [address], 12/04/2021 15:09:26 12/03/19 22 12/04/2021 PATHO LOGY [...] MXB 12/04 1503 Local Not Available [facility] ([facility]) [address], [place], [address], 12/04/2021 15:09:26 12/03/19 22 12/04/2021 PATHO LOGY REPOR T . Commen t Elect shira solo veronika d: . Manal i Miguel dennison MD, Patho logis t Not Available [facility] ([facility]) [address], [place], [address], 12/04/2021 15:09:26 12/03/19 22 12/04/2021 PATHO LOGY [...] VE PROCE SSING . Part B: CERVI JOSR BIOPS Y 1:00: 1 FRAGM ENT(S ) OF GREGORIO MUCOI D TISSU E MEASU RING 0.2 X 0.2 X 0.1 CM. SUBMI TTED RECEI DREW IN CASSE TTE(S ) B1. THE SPECI MEN MAY NOT SURVI VE PROCE SSING . MCL/M CL 12/03 0614 Local Not Available [facility] ([facility]) [address], [place], [address], 12/04/2021 15:09:26 12/03/19 22 12/04/2021 PATHO LOGY REPOR T . Commen t CPT . 56374 1, 39558 2 Not Available [facility] ([facility]) [address], [place], [address], 12/04/2021 15:09:26 12/03/19 22 12/02/2021 pregn pablo test, urine HCG negati ve Not Available [employer] [address] [place] [address] , [place], [address], 12/02/2021 11:00:01 10/22/19 22 10/21/2021 US, trans vagin al No observ ation record ed. [employer] [address] [place] [address] , [place], [address], 10/21/2021 11:04:17 10/22/19 22 US, trans vagin al No observ ation record ed. [employer] [address] [place] [address] , [place], [address], 10/21/2021 12:56:41 10/24/19 22 10/21/2021 US, trans vagin al No observ ation record ed. [email or web address] [employer] [address] [place] [address] , [place], [address], 10/23/2021 15:29:47 10/24/19 22 10/21/2021 US, trans vagin al No observ ation record ed. BARCODE [employer] [address] [place] [address] , [place], [address], 10/23/2021 14:26:48 12/25/19 22 12/23/2021 MAMMO , scree amelie, digit al, bilat eral No observ ation record ed. [email or web address] [facility] [address] [facility] , [place], [address], 12/25/2021 14:45:13 12/27/19 22 12/26/2021 - ldct lung ross levy [facility] Name: MARIAJOSE SHARP RA 989 Medica l Vizibility Phys: Baldo weaver NP, George Clemens [place] [address] : 1960 Age: 61 Sex: F Acct: [id number] Loc: G.CT PHONE #: [phone] Exam Date: 2021 Status : REG CLI FAX #: [phone] Rad# [id number] Unit# [id number] Admit Date: 2021 EXAMS: CPT CODE: [id number] CT CHEST LDCT LUNG SCREEN G0297 [...] to old granul omatou s diseas e. Caballero ry artery calcif icatio ns, again noted. Heart size is normal . No signif icant perica rdial fluid/ thicke amelie. No pleura l fluid. Multip le cysts of the partia lly visual ized right kidney upper pole, only partia lly imaged , again noted. Lung window images again show mild to modera te emphys rich. Small region of focal bronch iolect asis [...] ended. PAGE 1 Signed Report (VIGNESH NUED) [facility]: [facility] SHARP RA [address] [place], [place] [address]a [facility] Phys: Baldo weaver NP, George [place] [address] : 1960 Age: 61 Sex: F Acct: [id number] Loc: G.CT PHONE #: Exam Date: 2021 Status : REG CLI FAX #: Rad# [id number] Unit# [id number] Admit Date: 2021 EXAMS: CPT CODE: [id number] CT CHEST LDCT LUNG SCREEN G0297 [...] 2021 (1645) Printe d Date/T sammi: 2021 (3078) BATCH NO: N/A PAGE 2 Signed Report CC'ed Logic: Orderi ng Provid er: BALDO Leon Attend ing Provid er: BALDO Leon Referr ing Provid er: BALDO Leon Consul ting Provid er: NATALIYA GEORGE [email or web address] , [place], [address], 01/01/2022 13:53:49 Result Notes None recorded. Problems Name Problem SNOMED Code Status Onset Date Resolution Date Notes Provider Name and Address Organization Details Recorded Time Osteoarthritis 058973894 Active 2018 Paola Hyde null, [place] - [facility] 9 13:26:22 Hyperlipidemia 14057122 Active 2019 Mary Pradhan null, [place] - [facility] 0 09:00:41 Chronic obstructive pulmonary disease 99450803 Active 2020 Gloria Kumar null, [place] - [facility] 1 08:56:26 Gastroesophage al reflux disease 649786832 Active 2020 Gloria Kumar null, [place] - [facility] 1 08:57:37 Nausea 529104860 Active 2020 Paola Hyde null, [place] - [facility] 1 09:01:42 Type 2 diabetes mellitus 88320550 Active 2016 Mary Pradhan null, [place] - [facility] 7 15:12:55 Essential hypertension 03514321 Active 2016 Mary Pradhan shamir, [place] - [facility] 7 15:13:21 Problem Notes None recorded. Procedures Surgical History Date Name Laterality Status Provider Name and Address Organization Details Recorded Time 12/03/19 22 Colposcopy completed Wilma Ocampo, REAGENT TENDER [address], [place], [address], [place] [facility] 12/02/2021 12:50:52 12/03/19 22 Colposcopy completed Wilma Dolanmond, REAGENT TENDER [address], [place], [address], [place] [facility] 12/02/2021 12:54:48 12/03/19 22 Colposcopy completed Wilma Dolanmond, REAGENT TENDER [address], [place], [address], [place] [facility] 12/06/2021 09:17:32 10/22/19 22 Endometrial Biopsy completed Wilma Ocampo, REAGENT TENDER [address], [place], [address], [place] - [facility] 10/21/2021 11:08:39 10/22/19 22 Endometrial Biopsy completed Wilma Ocampo, REAGENT T[employer]ER [address], [place], [address], [place] [facility] 10/29/2021 08:09:56 06/17/19 [...] 20 Diastolic B/P 80-89 mm Hg completed Becyk [place] - [facility] 09/29/2019 08:58:47 06/03/19 19 Systolic B/P less than 130 mm Hg completed Becky Albarran [place] - [facility] 06/03/2018 12:58:45 06/03/19 19 Diastolic B/P 80-89 mm Hg completed Becky [place] - [facility] 06/03/2018 12:58:48 Tympanic membrane repair completed Mary [place] [facility] 09/16/2016 15:15:30 Tubal Ligation completed [facility] [place] [facility] 09/16/2016 15:15:39 Imaging Results None recorded. Procedure Notes None recorded. Medical Equipment None Reported. Allergies Allergen ID Allergen Name Allergen Category Reaction Reaction Severity Criticality Documentation Date Start Date Code Code System Note Provider Name and Address Organization Details Recorded Time [id number] meloxicam medicatio n Not available Not available Not available 09/29/2019 53622 RxNorm [place] Humphries [facility] 0 08:50:26 097818 lisinopri l medicatio n cough Not available Not available 09/29/2019 94172 RxNorm [place] Humphries [facility] 0 08:50:49 60661 Keflex medicatio n Not available Not available Not available 02/22/2016201216 7 RxNorm Not Available [facility] 6 10:16:19 Medications Name Sig Start Date [...] Status: Recorded on: 08/02/19 15 1:41PM;U ser: ony feliz Not Available Not Available Not Available [...] Available Not Available Not Available Dexcom G6 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 DIRECTED active [...] Updated DateTime 2 170.18 cm 34.5 kg/m2 24226.3 2 g 98 [degF] 86 /min 99 % 99 % 19 /min 110/70 mm[Hg] Timo Knapp [place] - [facility] 2 08:58:16 Date Recorded Body height Body mass index (BMI) Body weight Systolic And Diastolic Provider Name and Address Organization Details Last Updated DateTime 09/25/2021 170.18 cm 33 kg/m2 36537.99 g 114/72 mm[Hg] Shahana Rivas [place] - [facility] 09/25/2021 16:10:51 Date Recorded Body height Body mass index (BMI) Body weight Systolic And Diastolic Provider Name and Address Organization Details Last Updated DateTime 10/21/2021 170.18 cm 33 kg/m2 50651.99 g 116/70 mm[Hg] Shahana Rivas [place] [facility] 10/21/2021 10:42:36 Date Recorded Body height Body mass index (BMI) Body weight Systolic And Diastolic Provider Name and Address Organization Details Last Updated DateTime 12/02/2021 170.18 cm 33 kg/m2 98306.99 g 128/70 mm[Hg] Shahana Rivas [place] [facility] 12/02/2021 11:00:32 Date Recorded Body height Body mass index (BMI) Body weight Systolic And Diastolic Provider Name and Address Organization Details Last Updated DateTime 12/18/2021 170.18 cm 32.7 kg/m2 88097.81 g 128/80 mm[Hg] Shahana Rivas [place] [facility] 12/18/2021 16:36:43 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 Question Answer Notes LastModified by Organizat ion Details LastModified Time Tobacco Smoking Status Current Every Day Smoker Mary [place] - [facility] 09/16/2016 15:16:08 Able To Swim? Yes Information not available 09/16/2016 Do You Have An Advance Directive? No [email or web address] Information not available 09/25/2021 Do You Wear A Helmet When Biking? No [email or web address] Information not available 09/16/2016 Are You Blind Or Do You Have Difficulty Seeing? No [email or web address] Information not available 09/16/2016 Is Blood Transfusion Acceptable In An Emergency? Yes [email or web address] Information not available 09/25/2021 What Is Your Level Of Caffeine Consumption? Occasional [email or web address] Information not available 09/16/2016 How Much Tobacco Do You Chew? None Information not available 09/16/2016 In The 14 Days Before Symptom Onset, Have You Had Close Contact With A Laboratory-confir med COVID-19 While That Case Was Ill? No Information not available 09/25/2021 In The 14 Days Before Symptom Onset, Have You Had Close Contact With A Person Who Is Under Investigation For COVID-19 While That Person Was Ill? No Information not available 09/25/2021 Have You Been To An Area Known To Be High Risk For COVID-19? No [email or web address] Information not available 09/25/2021 Are You Deaf Or Do You Have Serious Difficulty Hearing? No [email or web address] Information not available 09/16/2016 What Type Of Diet Are You Following? DIABETIC [email or web address] Information not available 09/16/2016 Which Illicit Or Recreational Drugs Have You Used? None [email or web address] Information not available 09/16/2016 Have You Processed Blood Or Body Fluids From An Ebola Virus Disease Patient Without Appropriate PPE? No [email or web address] Information not available 09/25/2021 Do You Reside In Or Have You Traveled To An Area Where Ebola Virus Transmission Is Active? No [email or web address] Information not available 09/25/2021 What Is The Highest Grade Or Level Of School You Have Completed Or The Highest Degree You Have Received? [id number] [email or web address] Information not available 12/18/2021 Swimming/diving No Informati on not available 09/16/2016 Have There Been Any Changes To Your Family Or Social Situation? No [email or web address] Information no t available 12/18/2021 What Is The Fluoride Status Of Your Home? Fluoridated [email or web address] Information not available 09/25/2021 Hard Of Hearing Or Deaf In One Or Both Ears? No [email or web address] Information not available 09/16/2016 Have You Recently Or Are You Planning To Travel To An Area With Zika Virus? No [email or web address] Information not available 09/25/2021 Legally Blind In One Or Both Eyes? No [email or web address] Information no t available 09/16/2016 Live Alone Or With Others? With Others [email or web address] Information not available 09/16/2016 Do You Have A Medical Power Of Retail Account Specialist? No [email or web address] Information not available 09/25/2021 What Was The Date Of Your Most Recent Tobacco Screening? 11/26/2020 Information not available 11/26/2020 Do You Use Protection During Sex? No [email or web address] Information not available 09/25/2021 Do You Use Protection Against STDs? No [email or web address] Information not available 09/25/2021 What Is Your Relationship Status? [email or web address] Information not available 10/30/2016 Seat Belts Used Routinely Yes Information not available 09/16/2016 Are You Sexually Active? Yes [email or web address] Information not available 09/25/2021 Smoke Alarm In Home Yes Information not available 09/16/2016 Do You Have Smoke And Carbon Monoxide Detectors In Your Home? Yes [email or web address] Information not available 12/18/2021 At What Age Did You Start Smoking Tobacco? 14 [email or web address] Information not available 09/25/2021 Are You Passively Exposed To Smoke? Yes [email or web address] Information no t available 09/16/2016 How Much Tobacco Do You Smoke? 1 PPD hriker1 Information not available 09/29/2019 General Stress Level Low [email or web address] Information not available 09/16/2016 Do You Use Sunscreen Routinely? Yes [email or web address] Information not available 09/16/2016 Has Tobacco Cessation Counseling Been Provided? Yes [email or web address] Information not available 09/16/2016 On What Date Was Tobacco Cessation Counseling Provided? 11/26/2020 Information not available 11/26/2020 How Many Years Have You Smoked Tobacco? 20 Information not available 01/18/2019 Do You Have Difficulty Walking Or Climbing Stairs? No [email or web address] Information not available 09/16/2016 What Contraceptive Method Was Reported At Start Of This Visit? None [email or web address] Information not available 09/25/2021 What Contraceptive Method Was Reported At End Of This Visit? None [email or web address] Information not available 09/25/2021 Do You Want To Talk About Contraception Or Prevention During Your Visit Today? No - I Do Not Want To Talk About Contraception Today Because I Am Here For Something Else [email or web address] Information not available 09/25/2021 Do You Have Any Future Plans To Get ? No, I Don't Want To Become [email or web address] Information not available 09/25/2021 What Is Your Reason For Having No Contraceptive Method At Start Of This Visit? Other [email or web address] Information not available 09/25/2021 Sex: Female Functional Status Question Answer Note LastModified by Organizat ion Details LastModified Time Do you or have you ever used smokeless tobacco? Former smokeless tobacco user Information not available 01/18/2019 Are you currently employed? No [email or web address] Information not available 09/16/2016 Do you have transportation difficulties? No [email or web address] Information not available 12/02/2021 Are you able to care for yourself? Yes [email or web address] Information n ot available 09/16/2016 Do you have difficulty dressing or bathing? No [email or web address] Information not available 09/16/2016 Do you or have you ever used e-cigarettes or vape? Never used electronic cigarettes Information not available 01/18/2019 What is your exercise level? Occasional [email or web address] Information not available 09/16/2016 Do you use any illicit or recreational drugs? No [email or web address] Information not available 09/25/2021 Do you or have you ever used any other forms of tobacco or nicotine? No [email or web address] Information not available 09/25/2021 What is your level of alcohol consumption? None [email or web address] Information not available 09/16/2016 What is your status? Not [email or web address] Information no t available 09/25/2021 Are you able to walk? YESWOREST [email or web address] Information not available 09/16/2016 Do you have difficulty doing errands alone? No [email or web address] Information not available 09/16/2016 Mental Status Question Answer Note LastModified by Organizat ion Details LastModified Time Do you feel stressed (tense, restless, nervous, or anxious, or unable to sleep at night)? [id number] [email or web address] Information not available 12/18/2021 Do you have difficulty concentrating, remembering or making decisions? No [email or web address] Information no t available 09/16/2016 Family History Relationship Description Onset Age of this Age Resolved Age Notes LastModified by Organization Details LastModified Time Mother Blindness of one eye [email or web address] Not available 2016 15:18:12 Mother Type 2 diabetes mellitus [email or web address] Not available 2016 15:18:34 Mother Kidney disease [email or web address] Not available 2016 15:19:12 Mother Myocardial infarction [email or web address] Not available 09/16 15:19:26 Father Type 2 diabetes mellitus Not available 2016 15:18:34 Father Myocardial infarction [email or web address] Not available 09/16 15:19:26 Sister Fibromyalgia [email or web address] Not avai lable 09/16/2016 15:18:53 Sister Osteoarthrit is [email or web address] Not available 2016 15:20:30 Medical History Condition Response Pancreatitis N Coronary Artery Disease N Other N Gout N Atrial Fibrillation N congenital heart disease N Kidney Stones N Blood Diseases N Hyperthyroidism N Rheumatoid arthritis N Blood Transfusion N Erectile Dysfunction N amputation N Colonoscopy N Skin Lesions N Depression N COPD Y Pneumonia Y Incontinence N Murmur N Edema N Alzheimer's Disease N Migraine Headaches N Tobacco Abuse Y Anxiety Disorder N Muscle, Joint, or Bone Problems N Hemorrhoids N Obesity N Vision or Eye Problems N Restless Leg Syndrome N Arthritis N Polyps N Infertility N Mental Disorder N Carpal Tunnel N Acid Reflux (GERD) Y Cancer N Varicosities N Stroke N Tendonitis N Crohn's Disease N Hypercholesterolemia N Skin Cancer N Headaches N Fibromyalgia N Irritable Bowel Syndrome N Anal Fissure N Kidney Disease N Heart Problems N [...] Than N Lung Disease N Hypothyroidism N Developmental or Behavioral Disorders N Defects or Inherited Disease N Breast Problem N Difficulty Swallowing N Ovarian Cyst N Anesthesia Complications N Testosterone Deficiency N Meniere's disease N Head Injury/Concussion N Interstitial Cystitis N Congenital Anomalies N Hypoglycemia N Blood clot N Vitamin D Deficiency N Cellulitis N Endometriosis N Fracture N Bladder or Kidney Problems N Liver Disease N Schizophrenia N Panic Disorder N Concussion N Spina Bifida N Allergies/Hayfever N Osteoarthritis N Parkinson's Disease N Disc Protrusion N STI N Esophagitis N Angina N Thyroid Problems N GI Problems N ADD/ADHD N Anemia N Multiple Sclerosis N Abnormal PAP N Lumbago N Mental Illness N Psychiatric Illness N Ovarian Cancer N Diabetes Y Bedwetting N Degenerative Disc Disease N Seizures/Epilepsy N Congestive Heart Failure (CHF) N Syncope N Insomnia N Hyperlipidemia Y Eczema N Diverticulitis N Dementia N Attention Deficient Disorder N Abuse/Domestic Violence N Ulcerative colitis N Cerebrovascular Disease N Depression N Guillain-[place] N Sleep Apnea N Aneurysm N Heart Disease N Bronchitis N Suicidal Ideation N Pre-Eclampsia N Hypertension [...] high-dose, quadrivalent, PF 0 completed Andrea Barajaspaxton, REAGENT T[employer]ER [address], [place], [address], [place] [facility] 02/14/2020 15:06:06 influenza, unspecified formulation 4 completed Not Available [facility] 06/18/2019 02:21:20 influenza, unspecified formulation 4 completed Not Available [facility] 06/18/2019 02:21:20 Influenza, split virus, quadrivalent, preservative 7 completed Not Available [facility] 06/04/2019 03:54:37 Influenza, split virus, quadrivalent, preservative 1 completed Timo Knapp [place], [place] [facility] 03/13/2021 10:03:07 Tdap 8 completed Not Available [facility] 06/04/2019 03:54:59 Hep A, adult 8 completed Not Available [facility] 06/04/2019 03:55:12 Influenza, split virus, quadrivalent, PF 8 completed Not Available [facility] 06/04/2019 03:55:22 SARS-COV-2 (COVID-19) vaccine, UNSPECIFIED 1 completed Gloria [place] [facility] 08/27/2020 08:54:32 SARS-COV-2 (COVID-19) vaccine, UNSPECIFIED 1 completed Gloria [place] [facility] 08/27/2020 08:54:40 COVID-19, mRNA, LNP-S, PF, 100 mcg/0.5mL dose or 50 mcg/0.25mL dose 1 completed Timo Kn[place] null, [place] [facility] 02/27/2021 08:17:20 zoster recombinant 9 completed Not Available [facility] 06/04/2019 03:55:40 pneumococcal polysaccharide PPV23 9 completed Not Available [facility] 06/04/2019 03:55:37 Hep A, adult 9 completed Not Available [facility] 06/04/2019 03:55:40 Influenza, split virus, quadrivalent, PF 9 completed Not Available [facility] 06/04/2019 03:56:04 Past Encounters Encounter ID Performer Location Encounter Start Date Encounter Closed Date Diagnosis/Indication Diagnosis SNOMED-CT Code Diagnosis ICD10 Code Diagnosis Note [id number] SHARDA [place] [address] [address] Arm[place] EDWARDSGRACEAngela [facility] [place] [address] 06/03/2016 12:19:27 06/03/2016 13:33:18 Screening mammography 75929076 Z12.31 Abscess 760677226 L02.91 Essential hypertension 05772909 I10 Diabetes mellitus 172615 09 E11.9 [id number] SHARDA Carpenter [place] [address] [address] [place] Armando EDWARDSSAMIA [facility] [place] [address] 07/04/2016 10:40:44 07/04/2016 11:37:42 Upper respiratory infection 51526069 J06.9 Acute bronchitis 1729136 2 J20.9 Bronchitis 37045461 J40 Cough 06164113 R05 [id number] SHARDA Carpenter [place] [address] [place] [address] 07/22/2016 10:56:16 07/22/2016 12:00:19 Cough 36385696 R05 Bronchitis 67601488 J40 Acute bronchitis 2033631 2 J20.9 Trying to give up smoking 904066703 Z72.0 [id number] SHARDA Carpenter [place] [address] [address] [place] Armando DIANA [facility] [place] [address] 08/15/2016 09:20:34 08/15/2016 11:00:35 Essential hypertension 55615210 I10 Chronic ob structive pulmonary disease 94303022 J44.9 Diabetes mellitus 178883 09 E11.9 Type 2 munira betes mellitus 68299474 E11.9 Tobacco user 250354548 Z 72.0 [id number] SHARDA Bates [place] [address] [place] [address] 09/16/2016 14:49:34 09/16/2016 16:19:00 Acute sinusitis 65577478 J01.90 [id number] Paola Hyde APRN [place] [address] [place] [address] 10/30/2016 13:47:08 10/30/2016 16:08:25 Body mass index 30+ - obesity 459292816 Z68.39 Pain of joint 67886440 M 25.50 [id number] Paola Mary EllenTENN [place] [address] [place] [address] 12/18/2016 09:04:39 12/18/2016 09:51:19 Long-term drug therapy 428970623 Z79.899 Wasp sting 773621786 T63 .461A Pain of joint 24581103 M 25.50 [id number] Paola Hyde [employer] [place] [address] [place] [address] 02/02/2017 09:35:32 02/02/2017 10:43:04 Type 2 diabetes mellitus 65644113 E11.9 Diabetes mellitus 227376 09 E11.9 Renewal of prescription 370329077 Z76.0 Abscess 549231368 L02.91 [id number] Paola Hyde APRN [place] [address] [place] [address] 02/19/2017 15:02:47 02/19/2017 16:30:34 Nicotine dependence 05368877 F17.200 Administra tion of influenza vaccine 73457342 Z23 [id number] Paola Hyde APRN [place] [address] [place] [address] 05/28/2017 12:52:54 05/28/2017 13:56:18 Pain of joint 18953509 M25.50 Renewal of prescription 721757686 Z76.0 Screening mammography 24 710223 Z12.31 Diabetes mellitus 873627 09 E11.9 [id number] Paola HydeTENN [place] [address] [place] [address] 07/07/2017 13:43:26 07/07/2017 14:48:04 Acute exacerbation of chronic obstructive pulmonary disease 749933468 J44.1 Candidiasis of vagina 72 720191 B37.3 [id number] Paolaana Hyde SHARDA [place] [address] [address] BRAUN [facility] [place] [facility] [place] [address] 07/16/2017 10:05:38 07/16/2017 12:37:12 Acute exacerbation of chronic obstructive pulmonary disease 785385079 J44.1 Pneumonia 969820243 J18. 9 rtc in 7 to 10 days for follow up cxr [id number] Paola HydeTENN [place] [address] [address] [address] 08/27/2017 08:34:53 08/27/2017 10:05:42 Renewal of prescription 490284100 Z76.0 Essential hypertension 24649224 I10 Type 2 munira betes mellitus 23398562 E11.37X1 [id number] Paola Mary EllenTENN [place] [address] [address] [address] 09/03/2017 08:25:23 09/03/2017 09:54:08 Adult health examination 435235425 Z00.00 Depression screening 171 908127 Z13.89 Examinatio n of blood pressure 025144026 Z01.30 Diet education 05912457 Z71.3 Counseling 481993277 Z71 .82 Exercise counseling . Patient encouraged to exercise 30 minutes 5 days a week. Gynecologi c examination 09231283 Z01.419 Diabetes mellitus 492502 09 E11.9 Body mass index 30+ - obesity 890707710 Z68.39 Administra tion of diphtheria, pertussis, and tetanus vaccine 485429490 Z23 Active or passive immunization 537725006 Z23 [id number] Paola yHde APRN [place] [address] [address] Armando DIA[place] [facility] [place] [address] 10/20/2017 13:07:14 10/20/2017 13:58:05 Acute bronchitis 99642009 J20.9 Cough 29996451 R05 [id number] [facility] [address] [place] [address] 10/26/2017 14:37:16 10/26/2017 15:17:01 Upper respiratory infection 68590488 J06.9 discussed that this is likely viral and will need to run its course; given copd history will tx with augmentin (completes a course of levaquin) and a steroid course. [id number] SHARDA Carpenter [facility] [address] [place] [address] 11/26/2017 10:21:57 11/26/2017 13:13:20 History of surgical procedure on mouth 093789767 Z98.890 keep scheduled appointmen t with surgeon for follow up [id number] SHARDA Carpenter [place] [address] [address] [address] 02/08/2018 08:01:56 02/08/2018 09:53:45 Renewal of prescription 113785210 Z76.0 Essential hypertension 30732079 I10 Diabetes mellitus 010238 09 E11.9 Type 2 munira betes mellitus without complication 065584409 E11.9 Eruption 647678088 R21 Anxiety 98896675 F41.9 Active or passive immunization 865869189 Z23 Nicotine dependence 5629 4008 F17.200 Pain of joint 83431888 M 25.50 [id number] SHARDA Carpenter [facility] [address] [place] [address] 02/18/2018 09:09:57 02/18/2018 11:17:23 Nausea 800162104 R11.0 discontinu e zoloft, bland diet, rtc in one week to consider new medication for anxiety. rtc sooner if symptoms worsen. [id number] SHARDA Carpenter [place] [address] [address] [place] [address] 04/06/2018 11:22:42 04/06/2018 12:24:21 Anxiety 43415967 F41.9 [id number] Paola Hyde APRN [place] [address] [place] [address] 06/03/2018 12:48:10 06/03/2018 13:42:22 Tobacco dependence syndrome 87261042 F17.200 Osteoarthritis 573083963 M19.90 Vitamin D deficiency 347 23464 E55.9 Disorder o f vitamin B12 747473857 E53.8 Acute bronchitis 6141063 2 J20.9 [id number] Paola Hyde APRN [place] [address] [address] Armando DIANA [facility] [place] [address] 06/17/2018 09:43:02 06/17/2018 10:40:32 Active or passive immunization 941906627 Z23 Tobacco de pendence syndrome 79411571 F17.323 [id number] Paola Hyde APRN [place] [address] [address] Armando DIANA [facility] [place] [address] 08/09/2018 08:44:18 08/09/2018 09:59:01 Type 2 diabetes mellitus 06848507 E11.37X1 Type 2 munira betes mellitus without complication 033365083 E11.9 Pain of joint 56944178 M 25.50 [id number] Paola Hyde APRN [place] [address] [place] [address] 09/03/2018 09:21:00 09/03/2018 10:32:58 Active or passive immunization 217469114 Z23 Type 2 munira betes mellitus 27172670 E11.37X1 Vitamin D deficiency 347 55398 E55.9 Neuropathy 736370408 G62 .9 [id number] Paola Hyde APRN [place] [address] [place] [facility] [place] [address] 12/24/2018 08:21:01 12/24/2018 09:44:40 Pain in left arm 793282083 M79.602 Type 2 munira betes mellitus 04306193 E11.37X1 Acute exac erbation of chronic obstructive pulmonary disease 206652433 J44.1 [id number] SHARDA Carpenter [facility] [address] [place] [address] 01/27/2019 14:10:48 01/27/2019 15:17:24 Disorder of vitamin B12 705741881 E53.8 Renewal of prescription 202741626 Z76.0 Diabetes mellitus 532543 09 E11.9 Pain of [facility] region 17783774 M25.519 Long-term drug therapy 636489321 Z79.899 Shoulder joint pain 2679 55477 M25.519 Pain in left arm 8896519 00 M79.087 [id number] SHARDA Carpentergraceangela [place] [address] [address] [place] Armando DIANA [facility] [place] [address] 02/11/2019 10:05:35 02/11/2019 12:42:20 Osteoarthritis 669635022 M19.90 Administra tion of influenza vaccine 63053563 Z23 Pain of [place] region 66782350 M25.595 [id number] SHARDA Carpentergraceangela [place] [address] [address] [address] 03/31/2019 09:00:10 03/31/2019 10:23:19 Type 2 diabetes mellitus 18751728 E11.37X1 Renewal of prescription 256569078 Z76.0 Pain of [facility] region 31610357 M25.519 Disorder o f vitamin B12 197452158 E53.8 Neuropathy 948915289 G62 .9 [id number] SHARDA Carpentermiguelangela [place] [address] [address] Armando DIANA [facility] [place] [address] 05/09/2019 14:33:37 05/09/2019 15:41:47 Bronchitis 50564187 J40 rtc as needed [id number] Paola Hyde APRN Nellyangela [place] [address] [address] Armando DIANA [facility] [place] [address] 07/01/2019 08:49:24 07/01/2019 10:21:21 Type 2 diabetes mellitus 74739495 E11.37X1 Sinusitis 65560031 J32.9 Bronchitis 68232117 J40 rtc as needed Neuropathy 711824409 G62 .9 Renewal of prescription 884082664 Z76.0 Cough 94349314 R05 [id number] SHARDA Carpenter [facility] [address] [place] [address] 09/29/2019 08:45:47 09/29/2019 09:20:29 Type 2 diabetes mellitus 41948539 E11.37X1 Renewal of prescription 913913315 Z76.0 Osteoarthritis 952272423 M19.90 Nausea 991878166 R11.0 discontinu e zoloft, bland diet, rtc in one week to consider new medication for anxiety. rtc sooner if symptoms worsen. Neuropathy [id number] G62 .9 [id number] SHARDA Carpenter [facility] [address] [place] [address] 01/03/2020 08:05:23 01/03/2020 09:16:59 Type 2 diabetes mellitus 82228115 E11.37X1 Body mass index 30+ - obesity 984060234 Z68.39 Renewal of prescription 570366090 Z76.0 Candidiasis of vagina 72 640643 B37.3 Long-term drug therapy 247546107 Z79.899 Neuropathy 149784435 G62 .9 [id number] SHARDA Bates [facility] [address] [place] [address] 02/14/2020 14:42:27 02/14/2020 14:57:25 Administration of influenza vaccine 90662581 Z23 [id number] SHARDA Carpenter [facility] [address] [place] [address] 04/09/2020 08:30:50 04/09/2020 10:05:41 General examination of patient 656390833 Z00.00 Screening for cardiovascular system disease 818889157 Z13.6 Screening mammography 24 942878 Z12.31 Exercises education, guidance, and counseling 849285888 Z71.82 Dietary ma nagement surveillance 515245862 Z71.3 Type 2 munira betes mellitus 61957684 E11.37X1 Hyperlipidemia 65118211 E78.5 Renewal of prescription 179638573 Z76.0 Cough 57664707 R05 [id number] SHARDA Carpenter [place] [address] [address] [place] [facility] [place] [facility] [place] [address] 08/27/2020 08:33:56 08/27/2020 09:30:32 Type 2 diabetes mellitus 81466788 E11.37X1 will call with results Essential hypertension 69872186 I10 controlled with medication s, will call with results Hyperlipidemia 92932495 E78.5 controlled with medication , will call with results Osteoarthritis 758317381 M19.90 controlled with medication , will call with results Chronic ob structive pulmonary disease 95273359 J44.9 controlled with medicaton Gastroesop hageal reflux disease 480076733 K21.9 controlled with medication Arthritis 7215161 M19.90 controlled with medication [id number] SHARDA Carpenter [place] [address] [address] NELLYAngela [facility] [place] [address] 09/28/2020 08:42:12 09/28/2020 09:21:40 Osteoarthritis 166336156 M19.90 controlled with medication Type 2 munira betes mellitus 94150351 E11.37X1 stable [id number] SHARDA Carpenter [place] [address] [address] [place] [facility] [place] [address] 11/26/2020 08:03:44 11/26/2020 09:06:48 Type 2 diabetes mellitus 98351742 E11.37X1 stable Nausea 796067173 R11.0 requests refills for episodes of nausea Renewal of prescription 110968307 Z76.0 requests refills Hyperlipidemia 76453576 E78.5 controlled with medication , will call with results Essential hypertension 54091740 I10 controlled with medication s, will call with results Gastroesop hageal reflux disease 950602006 K21.9 controlled with medication Chronic ob structive pulmonary disease 43584384 J44.9 controlled with medicaton Nicotine dependence 5629 4008 F17.200 discussed importance of not smoking Hepatitis C screening 41 0181256 Z11.59 screening Screening mammography 24 970908 Z12.31 screening Screening for malignant neoplasm of colon 160950406 Z12.11 declined workup today. [id number] Paola Hyde APRN Ethelsamia [place] [address] [address] [facility] [facility] [place] [facility] [place] [address] 12/03/2020 08:41:57 12/03/2020 09:27:36 Acute bronchitis 38221011 J20.9 Cough 90321780 R05 do not take gabapentin [place] on prom[place] [id number] Paola Hyde APRN Nellyangela [place] [address] [address] [place] [address] 01/18/2021 15:42:39 01/18/2021 16:57:54 Chronic obstructive pulmonary disease 07514059 J44.9 Acute exac erbation of chronic obstructive pulmonary disease 262293950 J44.1 [id number] Paola Hyde APRN Nellyangela [place] [address] [address] [place] [facility] [place] [address] 01/28/2021 08:55:15 01/28/2021 11:47:26 Acute bronchitis 90611101 J20.9 declined xray today, seek urgent care if symptoms worsen Osteoarthritis 733417039 M19.90 controlled with medication [id number] SHARDA Reed [place] [address] [address] [place] [facility] [place] [place] [address] 02/27/2021 07:44:06 02/27/2021 08:38:17 Type 2 diabetes mellitus 77551969 E11.9 chronic controlled Body mass index 30+ - obesity 367051655 Z68.33 Essential hypertension 52961572 I10 chronic controlled Vitamin D deficiency 347 66341 E55.9 chronic controlled Cobalamin deficiency 190 346606 E53.8 chronic controlled Gastroesop hageal reflux disease 431333466 K21.9 chronic controlled [id number] Evangelina Nguyen APRN Ethels[place] [address] [address] NELLYAngela [facility] [place] [place] [address] 03/01/2021 08:40:39 03/01/2021 10:03:09 Viral screening 021521071 Z11.52 Acute bronchitis 5998911 2 J20.9 [id number] Evangelina Nguyen APRN Kandicealejandra [facility] [address] [place] [address] 03/13/2021 09:44:46 03/13/2021 10:03:27 Administration of influenza vaccine 13931103 Z23 Body mass index 30+ - obesity 298616306 Z68.33 Type 2 munira betes mellitus 48673920 E11.9 chronic uncontroll ed [id number] Evangelina Nguyen APRN Nellyangela [facility] [address] [place], [place] [address] 06/17/2021 09:49:08 06/17/2021 10:17:14 Type 2 diabetes mellitus 52204466 E11.9 chronic uncontroll ed Essential hypertension 05586574 I10 chronic controlled Hyperlipidemia 46961186 E78.5 chronic controlled [id number] SHARDA Reedgraceangela [facility] [address] [facility] [facility] [place] [address] 09/13/2021 08:28:03 09/13/2021 09:43:19 Type 2 diabetes mellitus 59804560 E11.9 chronic uncontroll ed Essential hypertension 36901686 I10 chronic controlled Gastroesop hageal reflux disease 756503549 K21.9 chronic controlled Hyperlipidemia 70683158 E78.5 chronic controlled Cobalamin deficiency 190 676539 E53.8 chronic controlled Chronic back pain 951010 002 M54.9 chronic, worsening at times, panchito reviewed appropriat e Postmenopa usal bleeding 35107367 N95.0 been going on for about a year, also reports capps with intercours e [id number] SHARDA Enriquez [facility] [address] LEARYMiguelAngela [facility] [place] [address] 09/25/2021 15:18:40 09/25/2021 16:35:21 Postmenopausal bleeding 15919082 N95.0 Essential hypertension 21706798 I10 Type 2 munira betes mellitus 78235768 E11.9 Body mass index 30+ - obesity 819617691 Z68.33 Postcoital bleeding 4888 0000 N93.0 [id number] SHARDA Enriquez HELI[facility] WELDER [address] [place] [address] [place] [address] 10/21/2021 10:15:00 10/21/2021 11:51:30 Postmenopausal bleeding 79515986 N95.0 Body mass index 30+ - obesity 742834442 Z68.33 Essential hypertension 40838752 I10 Type 2 munira betes mellitus 31857726 E11.9 [id number] SHARDA Enriquez HELIARC WELDER [address] [place] [address] [place] [address] 12/02/2021 10:38:57 12/02/2021 11:40:06 Abnormal cytology findings 564623127 R89.6 Screening for malignant neoplasm of cervix 478879198 Z12.4 [id number] SHARDA Enriquez [facility] [address] [place] [address] 12/18/2021 15:46:58 12/18/2021 17:05:35 Routine gynecologic examination done 4178224553 9101 Z01.419 Examinatio n of blood pressure 021496461 Z01.30 BP goal < 140/90 Depression screening 171 442313 Z13.31 Diet education 09368983 Z71.3 5712-3914 calorie diet recommende d with an emphasis on reducing sugar and refined carbohydra carolyn, avoiding highly processed foods and decreasing saturated fats. She declines dietary consult. Counseling 623244252 Z71 .82 Exercise counsellin dimitris. Patient encouraged to exercise 30 minutes 5 days a week. Screening for malignant neoplasm of breast 210275295 Z12.31 Scheduled for 12-23-21 Screening for malignant neoplasm of colon 494310880 Z12.11 declines Screening for malignant neoplasm of respiratory tract 339747769 Z12.2 Body mass index 30+ - obesity 580812274 Z68.32 Cigarette smoker 3769737 7 F17.210 Tobacco use discourage d. Techniques for quitting smoking discussed including pharmaceut icals (Nicotine patches, gum, Zyban, and Chantix) and behavioral therapy (Rob Escobedo). Immediate and custodial cardiovasc ular and respirator y benefits of smoking cessation discussed. Lung cancer risk reduction also discussed. Chronic ob structive pulmonary disease 19223501 J44.9 Essential hypertension 32516002 I10 Type 2 munira betes mellitus 40948623 E11.65 History of tubal ligation 438879341 Z98.51 Health Concerns Section Related Observation LastModified by Organization Detai ls LastModified Time None Recorded Concern Status LastModified by Organization Details LastModified Time None Recorded Advance Directives Directive N: Payers Insurance Date Sequence Insurance Name Policy Number Policy Hutson Covered Member ID Hutson Member ID Guarantor Name 02/18/2017 1 PASSPORT BY [employer]. (MEDICAID REPLACEMENT - HMO) Teresa Rivera [id number] Teresa Rivera 01/25/2022 1 [place]MO[place] [id number] Teresa Rivera [id number] Teresa Rivera 01/25/2022 [place] Teresa Rivera [id number] Teresa Rivera 07/15/2016 1 UNSPECIFIED REMIT PAYOR Teresa Rivera 06/03/2018 1 PASSPORT BY [employer] (MEDICAID REPLACEMENT - HMO) MEDICAID Teresa Rivera [id number] Teresa Rivera Notes Date Note Type Note Provider Name and Address Organization Details Recorded Time 09/13/2021 text/html Diabetes F/URepo rted bypatient.Review finger sticks:Doesn't check Labs:last A1C result: 7.1 Context:not missing doses of medications; no side effects from medications Evangelina Nguyen, SHARDA [address], [place], [address], [facility] - [facility] 09/13/2021 10:53:24 09/25/2021 text/html Post [...] Wilma Ocampo APRN [address], [place], [address], [place] - [facility] 09/26/2021 19:54:45 10/21/2021 text/html Teresa is here t o discuss ultrasound done to follow up on PMB. Wilma Ocampo APRN [address], [place], [address], [facility] - [facility] 10/21/2021 11:09:36 12/02/2021 text/html Patient in for colposcopy/biopsy. Patient denies any other symptoms. Wilma Ocampo APRN [address], [place], [address], [facility] - [facility] 12/02/2021 12:55:37 12/18/2021 text/html Annual [...] and high risk HPV typing;Needs to schedule mammogram([facility] 12-23-2021); Up to date on colonoscopy screening; All immunization are current The patient is a 61 year old naturally postmenopausal White female who presents as a/an established patient for annual gynecologic wellness exam. She denies gynecologic concerns. See above notations for significant gynecologic history of present illness as reported per patient during visit intake. Wilma Ocampo APRN [address], [place], [address], [place] - [facility] 12/19/2021 19:22:15 OBGyn Episode No OBEpisode recorded.
--- OUTSIDE RECORDS SUMMARY | 2024-11-24 20:55 | XMS_ITS | Encounter Summary ---
Author Organization Healthcare Address [address] [place] [address] Care Team Providers Care Health Care Attorney Name Role Phone Laurie Gutierrez MD Primary Care Provider [phone] Joshua Martínez MD Unavailable Encounter Details Date Type Department Care Team (Late st Contact Info) Description 11/07/2024 Orders Only [facility] 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) to steady your nerves or to get [...] & Respiratory [address] [place] [address] 11/29/2024 11:00 AM EDT Office Visit [facility] Ne[facility] Respiratory [address] [place] [address] Satnam Colvin MD [address] N[address] [facility] [address] [place] [address] 11/29/2024 12:30 PM EDT Appointment [facility] [address] [place] [address] 11/30/2024 1:30 PM EDT Appointment [facility] [address] [place] [address] 12/01/2024 2:00 PM EDT Appointment [facility] [address] [place] [address] 12/06/2024 11:40 AM EDT Appointment [facility] [id number] [place] [address] Haven Blum, WEATHERIZATION OPERATIONS MANAGER [address] [place] [address] 01/19/2025 9:30 AM EDT Appointment [facility]iology [address] [place] [address] 01/19/2025 10:45 AM EDT Office Visit [place] [facility] [address] [place] [address] Abhilash Bangura MD [address] [place] [address] 03/08/2025 1:00 PM EDT Office Visit [facility] [place] 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 10/26/2024 10/31/2024 Assessment Noted Time PHQ-9 Depression Total Score: 0 09/01/19 3:26 PM EDT A fall risk assessment has been complete d for the patient 10/06/2024 2:29 PM EDT A Body Mass Index follow-up plan has been documented for the patient 10/31/2024 4:09 PM EDT documented as of this encounter Care Teams Health Care Attorney Relationship Specialty Start Date End Date Laurie Gutierrez MD [address] [place] [id number] PCP - General 12/09/23 Joshua Martínez MD [address] [place], [place] [id number] [place] [address] Consulting Physician Radiation Oncology 09/19/24 documented as of this encounter
--- OUTSIDE RECORDS SUMMARY | 2024-11-24 20:55 | XMS_ITS | Data Portability ---
Author Organization [place] - [facility] [place] [facility] ADMIN Address [address] [place] [id number] Care Team Providers Care Bander And Cellophaner Machine Helper Name Role Phone SATYA GOTTI Primary Care Provider [phone] PERNELL ARAUJO Hematology/Oncology Assessment Encounter Date Assessment [...] Lab CMP, serum or plasma 2024 025 [email or web address] [facility], [address] [place] [address] [place], [address], 5 07:48:27 vitamin B12 + folate, serum or blood 2023 024 [facility], [address] [place] [address] [place], [address], 4 08:42:43 mma (methylmal onic acid), serum 2023 024 [facility], [address] [place] [address] [place], [address], 4 08:42:43 CMP, serum or plasma 2023 024 [facility], [address] [place] [address] [place], [address], 4 08:42:43 CBC w/ auto diff 2023 024 [facility], [address] [place] [address] [place], [address], 4 08:42:43 TSH + free T4, serum 2023 [facility] (Lab Registration) , [address] [place] [address] [place], [address], 4 08:42:43 vitamin D, 25-hydroxy , total, serum 2023 024 [facility] (Lab Registration) , [address] [place] [address] [place], [address], 4 12:01:45 Referral None recorded. Procedures None recorded. Surgeries None recorded. Imaging CT, chest, w/ contrast 2024 025 [facility] [address] [place] [address] [place], [address], 5 04:19:09 CT, chest + abdomen + pelvis, w/ contrast - iv contrast only 2024 025 [facility] (Central Scheduling), [address] [place] [address] [place], [address], 5 13:32:07 PET-CT, skull base to mid-thigh scan 2023 024 [facility]), [address] [place] [address] [place], [address], 4 11:50:43 Medication Orders doxycyclin e hyclate 100 mg capsule 2024 025 [facility], [address] [place] [address], [id number], 5 17:24:09 gabapentin 600 mg tablet 2023 024 [facility], [address] [place] [address], [id number], 4 14:21:53 Combivent Respimat 20 mcg-100 mcg/actuat ion solution for inhalation 2023 024 [facility], [address] [place] [address], [id number], 4 16:26:32 Symbicort 160 mcg-4.5 mcg/actuat ion HFA aerosol inhaler 2023 024 [facility], [address] [place] [address], [id number], 4 13:46:31 Patient TargetsNo targets recorded. Patient InstructionsNo instructions recorded. Reason for Referral None Reported. Results Created Date Observation Date Name Description Value Unit Range Abnormal Flag Note LastModifiedBy Organization Detail LastModifiedTime 10/19/1910/19/2023 CBC W/ AUTO DIFF WBC 8.22 K/uL 4.5-11 .5 Not Available [facility] (Pre[facility]Op [facility]) [address] [place] [address] [place], [address], 10/19/2023 08:46:17 10/19/19 24 10/19/2023 CBC W/ AUTO DIFF RBC 3.05 M/uL 4.0-5. 4 low Not Available [facility] ([facility]Op [facility]) [address] [place] [address] [place], [address], 10/19/2023 08:46:17 10/19/19 24 10/19/2023 CBC W/ AUTO DIFF HGB 9.8 g/dL 12.0-1 5.0 low Not Available [facility] ([facility]Op [facility]) [address] [place] [address] [place], [address], 10/19/2023 08:46:17 10/19/19 24 10/19/2023 CBC W/ AUTO DIFF HCT 30.7 % 35-49 low Not Available [facility] ([facility]Op [facility]) [address] [place] [address] [place], [address], 10/19/2023 08:46:17 10/19/19 24 10/19/2023 CBC W/ AUTO DIFF MCV 100.7 fL 80.0-1 00.0 high Not Available [facility] ([facility]Op [facility]) [address] [place] [address] [place], [address], 10/19/2023 08:46:17 10/19/19 24 10/19/2023 CBC W/ AUTO DIFF MCH 32.1 pg 26.0-3 2.0 high Not Available [facility] ([facility]Op [facility]) [address] [place] [address] [place], [address], 10/19/2023 08:46:17 10/19/19 24 10/19/2023 CBC W/ AUTO DIFF MCHC 31.9 g/dL 32.0-3 6.0 low Not Available [facility] ([facility]Op [facility]) [address] [place] [address] [place], [address], 10/19/2023 08:46:17 10/19/19 24 10/19/2023 CBC W/ AUTO DIFF RDW 15.9 % 11.5-1 4.5 high Not Available [facility] ([facility]Op [facility]) [address] [place] [address] [place], [address], 10/19/2023 08:46:17 10/19/19 24 10/19/2023 CBC W/ AUTO DIFF platelet count 250 K/uL 142-42 4 Not Available [facility] ([facility]) [address] [place] [address] [place], [address], 10/19/2023 08:46:17 10/19/19 24 10/19/2023 CBC W/ AUTO DIFF MPV 9.2 fL 6.8-10 .2 Not Available [facility] ([facility]) [address] [place] [address] [place], [address], 10/19/2023 08:46:17 10/19/19 24 10/19/2023 CBC W/ AUTO DIFF neutrophil % 79.4 % 50-70 high Not Available [facility] ([facility]Op [facility]) [address] [place] [address] [place], [address], 10/19/2023 08:46:17 10/19/19 24 10/19/2023 CBC W/ AUTO DIFF lymphocyte % 6.7 % 18.0-4 2.0 low Not Available [facility] ([facility]Op [facility]) [address] [place] [address] [place], [address], 10/19/2023 08:46:17 10/19/19 24 10/19/2023 CBC W/ AUTO DIFF monocyte % 8.0 % 2.0-11 .0 Not Available [facility] ([facility]) [address] [place] [address] [place], [address], 10/19/2023 08:46:17 10/19/19 24 10/19/2023 CBC W/ AUTO DIFF eosinophil % 3.2 % 1.0-3. 0 high Not Available [facility] ([facility]Op [facility]) [address] [place] [address] [place], [address], 10/19/2023 08:46:17 10/19/19 24 10/19/2023 CBC W/ AUTO DIFF basophil % 0.5 % 0.0-2. 0 Not Available [facility] ([facility]) [address] [place] [address] [place], [address], 10/19/2023 08:46:17 10/19/19 24 10/19/2023 CBC W/ AUTO DIFF immature granulocytes % 2.2 % 0.0-0. 8 high Not Available [facility] ([facility]Op [facility]) [address] [place] [address] [place], [address], 10/19/2023 08:46:17 10/19/19 24 10/19/2023 CBC W/ AUTO DIFF nucleated red blood cells % 0.6 % Not Available [facility] ([facility]Op [facility]) [address] [facility] [place], [address], 10/19/2023 08:46:17 10/19/19 24 10/19/2023 CBC W/ AUTO DIFF neutrophil # 6.53 K/uL Not Available [facility] ([facility]Op [facility]) [address] [place] [address] [place], [address], 10/19/2023 08:46:17 10/19/19 24 10/19/2023 CBC W/ AUTO DIFF lymphocyte # 0.55 K/uL Not Available [facility] (Pre[facility]Op Clinic) [address] [facility] [place], [address], 10/19/2023 08:46:17 10/19/19 24 10/19/2023 CBC W/ AUTO DIFF monocyte # 0.66 K/uL Not Available [facility] ([facility]Op [facility]) [address] [place] [address] [place], [address], 10/19/2023 08:46:17 10/19/19 24 10/19/2023 CBC W/ AUTO DIFF eosinophil # 0.26 K/uL Not Available [facility] (Pre[facility]Op [facility]) [address] [place] [address] [place], [address], 10/19/2023 08:46:17 10/19/19 24 10/19/2023 CBC W/ AUTO DIFF basophil # 0.04 K/uL Not Available [facility] ([facility]Op [facility]) [address] [place] [address] [place], [address], 10/19/2023 08:46:17 10/19/19 24 10/19/2023 CBC W/ AUTO DIFF immature gramulocytes # 0.18 K/uL Not Available [facility] ([facility]Op [facility]) [address] [place] [address] [place], [address], 10/19/2023 08:46:17 10/19/19 24 10/19/2023 CBC W/ AUTO DIFF nucleated red blood cells # 0.05 k/uL Not Available [facility] ([facility]Op [facility]) [address] [place] [address] [place], [address], 10/19/2023 08:46:17 10/19/19 24 10/19/2023 CBC W/ AUTO DIFF manual differential NO Not Available [facility] ([facility]Op [facility]) [address] [place] [address] [place], [address], 10/19/2023 08:46:17 10/19/19 24 10/19/2023 CBC W/ AUTO DIFF note Unles s other godinez noted testi ng perfo rmed at: [facility] [address] [place] [address] Juan Antonio rivera MD Not Available [facility] ([facility]) [address] [place] [address] [place], [address], 10/19/2023 08:46:17 10/19/19 24 10/19/2023 COMP METAB OLIC PANEL sodium 142 mmol/ L 137-14 7 Not Available [facility] (Pre[facility]Op [facility]) [address] [place] [address] [place], [address], 10/19/2023 08:47:22 10/19/19 24 10/19/2023 COMP METAB OLIC PANEL potassium 4.1 mmol/ L 3.5-5. 1 Not Available [facility] (Pre[facility]Op [facility]) [address] [place] [address] [place], [address], 10/19/2023 08:47:22 10/19/19 24 10/19/2023 COMP METAB OLIC PANEL chloride 105 mmol/ L 98-110 Not Available [facility] ([facility]Op [facility]) [address] [place] [address] [place], [address], 10/19/2023 08:47:22 10/19/19 24 10/19/2023 COMP METAB OLIC PANEL carbon dioxide 31 mmol/ L 21-30 high Not Available [facility] ([facility]Op [facility]) [address] [place] [address] [place], [address], 10/19/2023 08:47:22 10/19/19 24 10/19/2023 COMP METAB OLIC PANEL anion gap 6 mmol/ L 6-14 Not Available [facility] ([facility]Op [facility]) [address] [place] [address] [place], [address], 10/19/2023 08:47:22 10/19/19 24 10/19/2023 COMP METAB OLIC PANEL glucose 258 mg/dL 70-115 high Not Available [facility] ([facility]Op [facility]) [address] [place] [address] [place], [address], 10/19/2023 08:47:22 10/19/19 24 10/19/2023 COMP METAB OLIC PANEL BUN 16 mg/dL 7-17 Not Available [facility] ([facility]Op [facility]) [address] [place] [address] [place], [address], 10/19/2023 08:47:22 10/19/19 24 10/19/2023 COMP METAB OLIC PANEL creatinine 0.8 mg/dL 0.5-1. 5 Not Available [facility] ([facility]Op [facility]) [address] [place] [address] [place], [address], 10/19/2023 08:47:22 10/19/19 24 10/19/2023 COMP METAB OLIC PANEL BUN/creatini ne ratio 20 ratio 10-20 Not Available [facility] ([facility]Op [facility]) [address] [place] [address] [place], [address], 10/19/2023 08:47:22 10/19/19 24 10/19/2023 COMP METAB OLIC PANEL glom filtration rate 77 mL/mi n >60- Not Available [facility] ([facility]) [address] [place] [address] [place], [address], 10/19/2023 08:47:22 10/19/19 24 10/19/2023 COMP METAB OLIC PANEL osmolality (calculated) 305 mosmo l/kg 275-30 1 high OSMOL ALITY IS A CALCU LATIO N UTILI ZING THE SERUM /PLAS MA SODIU M, GLUCO SE AND UREA NITRO GEN (BUN) LEVEL S. FOR THE MOST ACCUR ATE RESUL T A MEASU RED SERUM OSMOL ALITY IS SUGGE STED. Not Available [facility] ([facility]Op [facility]) [address] [place] [address] [place], [address], 10/19/2023 08:47:22 10/19/19 24 10/19/2023 COMP METAB OLIC PANEL total protein 6.5 g/dL 6.2-8. 2 Not Available [facility] ([facility]) [address] [place] [address] [place], [address], 10/19/2023 08:47:22 10/19/19 24 10/19/2023 COMP METAB OLIC PANEL albumin 3.9 g/dL 3.5-5. 0 Not Available [facility] ([facility]) [address] [place] [address] [place], [address], 10/19/2023 08:47:22 10/19/19 24 10/19/2023 COMP METAB OLIC PANEL calcium 9.7 mg/dL 8.5-10 .8 Not Available [facility] ([facility]) [address] [place] [address] [place], [address], 10/19/2023 08:47:22 10/19/19 24 10/19/2023 COMP METAB OLIC PANEL bilirubin total 0.4 mg/dL 0.2-1. 3 Not Available [facility] ([facility]) [address] [place] [address] [place], [address], 10/19/2023 08:47:22 10/19/19 24 10/19/2023 COMP METAB OLIC PANEL AST (SGOT) 20 IU/L 14-36 Not Available [facility] ([facility]) [address] [place] [address] [place], [address], 10/19/2023 08:47:22 10/19/19 24 10/19/2023 COMP METAB OLIC PANEL ALT (SGPT) 16 IU/L 0-35 Pleas e note new refer ence inter lynn for ALT. 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 Not Available [facility] ([facility]) [address] [place] [address] [place], [address], 10/19/2023 08:47:22 10/19/19 24 10/19/2023 COMP METAB OLIC PANEL alk phosphatase 98 IU/L 38-126 Not Available [facility] (Pre[facility]Op [facility]) [address] [place] [address] [place], [address], 10/19/2023 08:47:22 10/19/19 24 10/19/2023 COMP METAB OLIC PANEL note Benjie s other godinez noted testi ng perfo rmed at: [facility] [address] [place] [address] Juan Antonio rivera MD Not Available [facility] ([facility]) [address] [place] [address] [place], [address], 10/19/2023 08:47:22 10/19/19 24 10/19/2023 MAGNE SIUM magnesium 1.5 mg/dL 1.6-2. 4 low Not Available [facility] ([facility]) [address] [place] [address] [place], [address], 10/19/2023 08:47:23 10/19/19 24 10/19/2023 MAGNE SIUM note Unles s other godinez noted testi ng perfo rmed at: [facility] [address] [place] [place] [address] Juan Antonio rivera MD Not Available [facility] ([facility]) [address] [place] [address] [place], [address], 10/19/2023 08:47:23 11/09/19 24 11/09/2023 CBC W/ AUTO DIFF WBC 7.86 K/uL 4.5-11 .5 Not Available [facility] ([facility]) [address] [place] [address] [place], [address], 11/09/2023 08:55:13 11/09/19 24 11/09/2023 CBC W/ AUTO DIFF RBC 3.68 M/uL 4.0-5. 4 low Not Available [facility] ([facility]) [address] [place] [address] [place], [address], 11/09/2023 08:55:13 11/09/1911/09/2023 CBC W/ AUTO DIFF HGB 11.2 g/dL 12.0-1 5.0 low Not Available [facility]) [address] [place] [address] [place], [address], 11/09/2023 08:55:13 11/09/19 24 11/09/2023 CBC W/ AUTO DIFF HCT 36.1 % 35-49 Not Available [facility] ([facility]) [address] [place] [address] [place], [address], 11/09/2023 08:55:13 11/09/19 24 11/09/2023 CBC W/ AUTO DIFF MCV 98.1 fL 80.0-1 00.0 Not Available [facility] ([facility]) [address] [place] [address] [place], [address], 11/09/2023 08:55:13 11/09/1911/09/2023 CBC W/ AUTO DIFF MCH 30.4 pg 26.0-3 2.0 Not Available [facility] ([facility]) [address] [place] [address] [place], [address], 11/09/2023 08:55:13 11/09/19 24 11/09/2023 CBC W/ AUTO DIFF MCHC 31.0 g/dL 32.0-3 6.0 low Not Available [facility] ([facility]) [address] [place] [address] [place], [address], 11/09/2023 08:55:13 11/09/19 24 11/09/2023 CBC W/ AUTO DIFF RDW 16.8 % 11.5-1 4.5 high Not Available [facility]) [address] [place] [address] [place], [address], 11/09/2023 08:55:13 11/09/19 24 11/09/2023 CBC W/ AUTO DIFF platelet count 307 K/uL 142-42 4 Not Available [facility]) [address] [place] [address] [place], [address], 11/09/2023 08:55:13 11/09/19 24 11/09/2023 CBC W/ AUTO DIFF MPV 9.5 fL 6.8-10 .2 Not Available [facility]) [address] [place] [address] [place], [address], 11/09/2023 08:55:13 11/09/19 24 11/09/2023 CBC W/ AUTO DIFF neutrophil % 69.9 % 50-70 Not Available [facility] ([facility]) [address] [place] [address] [place], [address], 11/09/2023 08:55:13 11/09/19 24 11/09/2023 CBC W/ AUTO DIFF lymphocyte % 13.6 % 18.0-4 2.0 low Not Available [facility] ([facility]) [address] [place] [address] [place], [address], 11/09/2023 08:55:13 11/09/19 24 11/09/2023 CBC W/ AUTO DIFF monocyte % 10.1 % 2.0-11 .0 Not Available [facility]) [address] [place] [address] [place], [address], 11/09/2023 08:55:13 11/09/19 24 11/09/2023 CBC W/ AUTO DIFF eosinophil % 2.4 % 1.0-3. 0 Not Available [facility] ([facility]) [address] [place] [address] [place], [address], 11/09/2023 08:55:13 11/09/1911/09/2023 CBC W/ AUTO DIFF basophil % 1.3 % 0.0-2. 0 Not Available [facility]) [address] [place] [address] [place], [address], 11/09/2023 08:55:13 11/09/1911/09/2023 CBC W/ AUTO DIFF immature granulocytes % 2.7 % 0.0-0. 8 high Not Available [facility] ([facility]) [address] [place] [address] [place], [address], 11/09/2023 08:55:13 11/09/1911/09/2023 CBC W/ AUTO DIFF nucleated red blood cells % 0.3 % Not Available [facility] ([facility]Op [facility]) [address] [place] [address] [place], [address], 11/09/2023 08:55:13 11/09/1911/09/2023 CBC W/ AUTO DIFF neutrophil # 5.50 K/uL Not Available [facility] ([facility]Op [facility]) [address] [place] [address] [place], [address], 11/09/2023 08:55:13 11/09/1911/09/2023 CBC W/ AUTO DIFF lymphocyte # 1.07 K/uL Not Available [facility] ([facility]Op [facility]) [address] [place] [address] [place], [address], 11/09/2023 08:55:13 11/09/1908 1111/09/2023 CBC W/ AUTO DIFF monocyte # 0.79 K/uL Not Available [facility] ([facility]) [address] [place] [address] [place], [address], 11/09/2023 08:55:13 11/09/19 24 11/09/2023 CBC W/ AUTO DIFF eosinophil # 0.19 K/uL Not Available [facility] ([facility]) [address] [place] [address] [place], [address], 11/09/2023 08:55:13 11/09/19 24 11/09/2023 CBC W/ AUTO DIFF basophil # 0.10 K/uL Not Available [facility] ([facility]) [address] [place] [address] [place], [address], 11/09/2023 08:55:13 11/09/19 24 11/09/2023 CBC W/ AUTO DIFF immature gramulocytes # 0.21 K/uL Not Available [facility]) [address] [place] [address] [place], [address], 11/09/2023 08:55:13 11/09/19 24 11/09/2023 CBC W/ AUTO DIFF nucleated red blood cells # 0.02 k/uL Not Available [facility] ([facility]Op [facility]) [address] [place] [address] [place], [address], 11/09/2023 08:55:13 11/09/19 24 11/09/2023 CBC W/ AUTO DIFF manual differential NO Not Available [facility] ([facility]Op [facility]) [address] [place] [address] [place], [address], 11/09/2023 08:55:13 11/09/19 24 11/09/2023 CBC W/ AUTO DIFF note Unles s other godinez noted testi ng perfo rmed at: [facility] [address] [place] [place] [address] Juan Antonio rivera MD Not Available [facility] ([facility]) [address] [place] [address] [place], [address], 11/09/2023 08:55:13 11/09/19 24 11/09/2023 COMP METAB OLIC PANEL sodium 142 mmol/ L 137-14 7 Not Available [facility]) [address] [place] [address] [place], [address], 11/09/2023 09:19:53 11/09/19 24 11/09/2023 COMP METAB OLIC PANEL potassium 3.9 mmol/ L 3.5-5. 1 Not Available [facility] ([facility]) [address] [place] [address] [place], [address], 11/09/2023 09:19:53 11/09/1911/09/2023 COMP METAB OLIC PANEL chloride 101 mmol/ L 98-110 Not Available [facility] ([facility]) [address] [place] [address] [place], [address], 11/09/2023 09:19:53 11/09/1911/09/2023 COMP METAB OLIC PANEL carbon dioxide 28 mmol/ L 21-30 Not Available [facility] ([facility]) [address] [place] [address] [place], [address], 11/09/2023 09:19:53 11/09/1911/09/2023 COMP METAB OLIC PANEL anion gap 13 mmol/ L 6-14 Not Available [facility] ([facility]) [address] [place] [address] [place], [address], 11/09/2023 09:19:53 11/09/1911/09/2023 COMP METAB OLIC PANEL glucose 187 mg/dL 70-115 high Not Available [facility]) [address] [place] [address] [place], [address], 11/09/2023 09:19:53 11/09/19 24 11/09/2023 COMP METAB OLIC PANEL BUN 16 mg/dL 7-17 Not Available [facility]) [address] [place] [address] [place], [address], 11/09/2023 09:19:53 11/09/19 24 11/09/2023 COMP METAB OLIC PANEL creatinine 0.8 mg/dL 0.5-1. 5 Not Available [facility] ([facility]) [address] [place] [address] [place], [address], 11/09/2023 09:19:53 11/09/1911/09/2023 COMP METAB OLIC PANEL BUN/creatini ne ratio 20 ratio 10-20 Not Available [facility] ([facility]) [address] [place] [address] [place], [address], 11/09/2023 09:19:53 11/09/1911/09/2023 COMP METAB OLIC PANEL glom filtration rate 83 mL/mi n >60- Not Available [facility]) [address] [place] [address] [place], [address], 11/09/2023 09:19:53 11/09/1911/09/2023 COMP METAB OLIC PANEL osmolality (calculated) 301 mosmo l/kg 275-30 1 OSMOL ALITY IS A CALCU LATIO N UTILI ZING THE SERUM /PLAS MA SODIU M, GLUCO SE AND UREA NITRO GEN (BUN) LEVEL S. FOR THE MOST ACCUR ATE RESUL T A MEASU RED SERUM OSMOL ALITY IS SUGGE STED. Not Available [facility] ([facility]) [address] [place] [address] [place], [address], 11/09/2023 09:19:53 11/09/1911/09/2023 COMP METAB OLIC PANEL total protein 7.3 g/dL 6.2-8. 2 Not Available [facility]) [address] [place] [address] [place], [address], 11/09/2023 09:19:53 11/09/19 24 11/09/2023 COMP METAB OLIC PANEL albumin 4.1 g/dL 3.5-5. 0 Not Available [facility]) [address] [place] [address] [place], [address], 11/09/2023 09:19:53 11/09/1911/09/2023 COMP METAB OLIC PANEL calcium 9.5 mg/dL 8.5-10 .8 Not Available [facility] ([facility]) [address] [place] [address] [place], [address], 11/09/2023 09:19:53 11/09/1911/09/2023 COMP METAB OLIC PANEL bilirubin total 0.5 mg/dL 0.2-1. 3 Not Available [facility] ([facility]) [address] [place] [address] [place], [address], 11/09/2023 09:19:53 11/09/1911/09/2023 COMP METAB OLIC PANEL AST (SGOT) 26 IU/L 14-36 Not Available [facility]) [address] [place] [address] [place], [address], 11/09/2023 09:19:53 11/09/1911/09/2023 COMP METAB OLIC PANEL ALT (SGPT) 16 IU/L 0-35 Pleas e note new refer ence inter lynn for ALT. 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 Not Available [facility] ([facility]) [address] [place] [address] [place], [address], 11/09/2023 09:19:53 11/09/1911/09/2023 COMP METAB OLIC PANEL alk phosphatase 113 IU/L 38-126 Not Available [facility] (Pre[facility]Op [facility]) [address] [place] [address] [place], [address], 11/09/2023 09:19:53 11/09/19 24 11/09/2023 COMP METAB OLIC PANEL note Benjie s other godinez noted testi ng perfo rmed at: [facility] [address] [place] [address] Juan Antonio rivera MD Not Available [facility] ([facility]) [address] [place] [address] [place], [address], 11/09/2023 09:19:53 11/09/19 24 11/09/2023 MAGNE SIUM magnesium 1.4 mg/dL 1.6-2. 4 low Not Available [facility] ([facility]) [address] [place] [address] [place], [address], 11/09/2023 09:19:54 11/09/19 24 11/09/2023 MAGNE SIUM note Benjie rivera other godinez noted testi ng perfo rmed at: [facility] [address] [place] [address] Juan Antonio rivera MD Not Available [facility] ([facility]) [address] [place] [address] [place], [address], 11/09/2023 09:19:54 11/09/19 24 11/09/2023 IRON STUDY W FE/TI BC/UI BC/%S AT iron 93 ug/dL 37-170 Not Available [facility] ([facility]) [address] [place] [address] [place], [address], 11/09/2023 10:42:03 11/09/19 24 11/09/2023 IRON STUDY W FE/TI BC/UI BC/%S AT total iron bind cap. 258 ug/dL 265-49 7 low Not Available [facility] ([facility]) [address] [place] [address] [place], [address], 11/09/2023 10:42:03 11/09/19 24 11/09/2023 IRON STUDY W FE/TI BC/UI BC/%S AT unsaturated iron binding cap 165 ug/dL 150-37 5 Not Available [facility] ([facility]) [address] [place] [address] [place], [address], 11/09/2023 10:42:03 11/09/19 24 11/09/2023 IRON STUDY W FE/TI BC/UI BC/%S AT % saturation 36 % 15-55 Not Available [facility] ([facility]) [address] [place] [address] [place], [address], 11/09/2023 10:42:03 11/09/19 24 11/09/2023 IRON STUDY W FE/TI BC/UI BC/%S AT note Unles s other godinez noted testi ng perfo rmed at: [facility] [address] [place] [address] Juan Antonio rivera MD Not Available [facility] ([facility]) [address] [place] [address] [place], [address], 11/09/2023 10:42:03 11/09/19 24 11/09/2023 JAMES TIN ferritin 180 NG/mL 3-105 high Not Available [facility] ([facility]) [address] [place] [address] [place], [address], 11/09/2023 11:17:42 11/09/19 24 11/09/2023 JAMES TIN note Unles s other godinez noted testi ng perfo rmed at: [facility] [address] [place] [address] Juan Antonio rivera MD Not Available [facility] ([facility]) [address] [place] [address] [place], [address], 11/09/2023 11:17:42 11/09/19 24 11/09/2023 VITAM IN B12 vitamin B12 925 pg/mL 239-93 1 Not Available [facility] ([facility]) [address] [place] [address] [place], [address], 11/09/2023 11:45:19 11/09/19 24 11/09/2023 VITAM IN B12 folate (folic acid), serum 11.5 NG/mL 2.76- Not Available [facility] (Pre[facility]Op Clinic) [address] [place] [address] [place], [address], 11/09/2023 11:45:19 11/09/19 24 11/09/2023 VITAM IN B12 note Unles s other godinez noted testi ng perfo rmed at: [facility] [address] [place] [address] Juan Antonio rivera MD Not Available [facility] ([facility]) [address] [place] [address] [place], [address], 11/09/2023 11:45:19 11/09/19 24 11/09/2023 METHY LMALO ANDREW ACID QUANT note Unlmarquez rivera other godinez noted testi ng perfo rmed at: [facility] [address] [place] [address] Juan Antonio rivera MD Not Available [facility] ([facility]) [address] [place] [address] [place], [address], 11/13/2023 14:17:09 11/09/19 24 11/13/2023 METHY LMALO ANDREW ACID QUANT methylmaloni c acid, serum 198 nmol/ L 0-378 Test( s) 08302 7-Met hylma lonic Acid, Serum was devel oped and its perfo rmanc e kayla cteri stics deter mined by [facility]. It has not been clear ed or appro dequan by the Food and Drug Admin istra tion. Perfo rmed at: - [facility] [place] [address] , [place] [address] Lab Direc tor: Blanca singh MD, Phone : [phone] Not Available [facility] ([facility]) [address] [place] [address] [place], [address], 11/13/2023 14:17:09 02/08/20 24 02/08/2024 CBC W/ AUTO DIFF WBC 7.20 K/uL 4.5-11 .5 Not Available [facility] ([facility]) [address] [place] [address] [place], [address], 02/08/2024 11:13:30 02/08/20 24 02/08/2024 CBC W/ AUTO DIFF RBC 3.41 M/uL 4.0-5. 4 low Not Available [facility] ([facility]) [address] [place] [address] [place], [address], 02/08/2024 11:13:30 02/08/20 24 02/08/2024 CBC W/ AUTO DIFF HGB 10.8 g/dL 12.0-1 5.0 low Not Available [facility] ([facility]) [address] [place] [address] [place], [address], 02/08/2024 11:13:30 02/08/20 24 02/08/2024 CBC W/ AUTO DIFF HCT 34.4 % 35-49 low Not Available [facility] ([facility]) [address] [place] [address] [place], [address], 02/08/2024 11:13:30 02/08/20 24 02/08/2024 CBC W/ AUTO DIFF MCV 100.9 fL 80.0-1 00.0 high Not Available [facility] ([facility]) [address] [place] [address] [place], [address], 02/08/2024 11:13:30 02/08/20 24 02/08/2024 CBC W/ AUTO DIFF MCH 31.7 pg 26.0-3 2.0 Not Available [facility] ([facility]) [address] [place] [address] [place], [address], 02/08/2024 11:13:30 02/08/20 24 02/08/2024 CBC W/ AUTO DIFF MCHC 31.4 g/dL 32.0-3 6.0 low Not Available [facility] ([facility]) [address] [place] [address] [place], [address], 02/08/2024 11:13:30 02/08/20 24 02/08/2024 CBC W/ AUTO DIFF RDW 14.4 % 11.5-1 4.5 Not Available [facility] ([facility]) [address] [place] [address] [place], [address], 02/08/2024 11:13:30 02/08/20 24 02/08/2024 CBC W/ AUTO DIFF platelet count 190 K/uL 142-42 4 Not Available [facility] ([facility]) [address] [place] [address] [place], [address], 02/08/2024 11:13:30 02/08/20 24 02/08/2024 CBC W/ AUTO DIFF MPV 9.7 fL 6.8-10 .2 Not Available [facility] ([facility]) [address] [place] [address] [place], [address], 02/08/2024 11:13:30 02/08/20 24 02/08/2024 CBC W/ AUTO DIFF neutrophil % 81.4 % 50-70 high Not Available [facility] ([facility]) [address] [place] [address] [place], [address], 02/08/2024 11:13:30 02/08/20 24 02/08/2024 CBC W/ AUTO DIFF lymphocyte % 9.9 % 18.0-4 2.0 low Not Available [facility] ([facility]) [address] [place] [address] [place], [address], 02/08/2024 11:13:30 02/08/20 24 02/08/2024 CBC W/ AUTO DIFF monocyte % 3.6 % 2.0-11 .0 Not Available [facility] ([facility]) [address] [place] [address] [place], [address], 02/08/2024 11:13:30 02/08/20 24 02/08/2024 CBC W/ AUTO DIFF eosinophil % 4.0 % 1.0-3. 0 high Not Available [facility] ([facility]) [address] [place] [address] [place], [address], 02/08/2024 11:13:30 02/08/20 24 02/08/2024 CBC W/ AUTO DIFF basophil % 0.7 % 0.0-2. 0 Not Available [facility] ([facility]) [address] [place] [address] [place], [address], 02/08/2024 11:13:30 02/08/20 24 02/08/2024 CBC W/ AUTO DIFF immature granulocytes % 0.4 % 0.0-0. 8 Not Available [facility] (Pre-Op Clinic) [address] [place] [address] [place], [address], 02/08/2024 11:13:30 02/08/20 24 02/08/2024 CBC W/ AUTO DIFF nucleated red blood cells % 0.0 % Not Available [facility] ([facility]) [address] [place] [address] [place], [address], 02/08/2024 11:13:30 02/08/20 24 02/08/2024 CBC W/ AUTO DIFF neutrophil # 5.86 K/uL Not Available [facility] (Pre[facility]Op Clinic) [address] [place] [address] [place], [address], 02/08/2024 11:13:30 02/08/20 24 02/08/2024 CBC W/ AUTO DIFF lymphocyte # 0.71 K/uL Not Available [facility] (Pre[facility]Op Clinic) [address] [place] [address] [place], [address], 02/08/2024 11:13:30 02/08/20 24 02/08/2024 CBC W/ AUTO DIFF monocyte # 0.26 K/uL Not Available [facility] (Pre[facility]Op [facility]) [address] [place] [address] [place], [address], 02/08/2024 11:13:30 02/08/20 24 02/08/2024 CBC W/ AUTO DIFF eosinophil # 0.29 K/uL Not Available [facility] ([facility]Op [facility]) [address] [place] [address] [place], [address], 02/08/2024 11:13:30 02/08/20 24 02/08/2024 CBC W/ AUTO DIFF basophil # 0.05 K/uL Not Available [facility] ([facility]) [address] [place] [address] [place], [address], 02/08/2024 11:13:30 02/08/20 24 02/08/2024 CBC W/ AUTO DIFF immature gramulocytes # 0.03 K/uL Not Available [facility] ([facility]) [address] [place] [address] [place], [address], 02/08/2024 11:13:30 02/08/20 24 02/08/2024 CBC W/ AUTO DIFF nucleated red blood cells # 0.00 k/uL Not Available [facility] ([facility]) [address] [place] [address] [place], [address], 02/08/2024 11:13:30 02/08/20 24 02/08/2024 CBC W/ AUTO DIFF manual differential NO Not Available [facility] ([facility]Op [facility]) [address] [place] [address] [place], [address], 02/08/2024 11:13:30 02/08/20 24 02/08/2024 CBC W/ AUTO DIFF note Unles s other godinez noted testi ng perfo rmed at: [facility] [address] [place] [address] Juan Antonio rivera MD Not Available [facility] ([facility]) [address] [place] [address] [place], [address], 02/08/2024 11:13:30 09/23/20 24 02/08/2024 COMP METAB OLIC PANEL sodium 144 mmol/ L 137-14 7 Not Available [facility] ([facility]) [address] [facility] [place], [address], 02/08/2024 11:52:56 02/08/20 24 02/08/2024 COMP METAB OLIC PANEL potassium 4.1 mmol/ L 3.5-5. 1 Not Available [facility] ([facility]) [address] [facility] [place], [address], 02/08/2024 11:52:56 02/08/20 24 02/08/2024 COMP METAB OLIC PANEL chloride 106 mmol/ L 98-110 Not Available [facility] ([facility]) [address] [place] [address] [place], [address], 02/08/2024 11:52:56 02/08/20 24 02/08/2024 COMP METAB OLIC PANEL carbon dioxide 27 mmol/ L 21-30 Not Available [facility] ([facility]) [address] [facility] [place], [address], 02/08/2024 11:52:56 02/08/20 24 02/08/2024 COMP METAB OLIC PANEL anion gap 11 mmol/ L 6-14 Not Available [facility] ([facility]Op [facility]) [address] [place] [address] [place], [address], 02/08/2024 11:52:56 02/08/20 24 02/08/2024 COMP METAB OLIC PANEL glucose 208 mg/dL 70-115 high Not Available [facility] ([facility]) [address] [place] [address] [place], [address], 02/08/2024 11:52:56 02/08/20 24 02/08/2024 COMP METAB OLIC PANEL BUN 21 mg/dL 7-17 high Not Available [facility] ([facility]) [address] [place] [address] [place], [address], 02/08/2024 11:52:56 02/08/20 24 02/08/2024 COMP METAB OLIC PANEL creatinine 1.0 mg/dL 0.5-1. 5 Not Available [facility] ([facility]) [address] [facility] [place], [address], 02/08/2024 11:52:56 02/08/20 24 02/08/2024 COMP METAB OLIC PANEL BUN/creatini ne ratio 21 ratio 10-20 high Not Available [facility] ([facility]) [address] [place] [address] [place], [address], 02/08/2024 11:52:56 02/08/20 24 02/08/2024 COMP METAB OLIC PANEL glom filtration rate 63 mL/mi n >60- Not Available [facility] ([facility]Op [facility]) [address] [place] [address] [place], [address], 02/08/2024 11:52:56 02/08/20 24 02/08/2024 COMP METAB OLIC PANEL osmolality (calculated) 308 mosmo l/kg 275-30 1 high OSMOL ALITY IS A CALCU LATIO N UTILI ZING THE SERUM /PLAS MA SODIU M, GLUCO SE AND UREA NITRO GEN (BUN) LEVEL S. FOR THE MOST ACCUR ATE RESUL T A MEASU RED SERUM OSMOL ALITY IS SUGGE STED. Not Available [facility] ([facility]) [address] [facility] [place], [address], 02/08/2024 11:52:56 02/08/20 24 02/08/2024 COMP METAB OLIC PANEL total protein 7.7 g/dL 6.2-8. 2 Not Available [facility] ([facility]) [address] [place] [address] [place], [address], 02/08/2024 11:52:56 02/08/20 24 02/08/2024 COMP METAB OLIC PANEL albumin 4.1 g/dL 3.5-5. 0 Not Available [facility] ([facility]Op [facility]) [address] [place] [address] [place], [address], 02/08/2024 11:52:56 02/08/20 24 02/08/2024 COMP METAB OLIC PANEL calcium 9.2 mg/dL 8.5-10 .8 Not Available [facility] ([facility]Op [facility]) [address] [place] [address] [place], [address], 02/08/2024 11:52:56 02/08/20 24 02/08/2024 COMP METAB OLIC PANEL bilirubin total 0.4 mg/dL 0.2-1. 3 Not Available [facility] ([facility]) [address] [place] [address] [place], [address], 02/08/2024 11:52:56 02/08/20 24 02/08/2024 COMP METAB OLIC PANEL AST (SGOT) 24 IU/L 14-36 Not Available [facility] ([facility]Op [facility]) [address] [place] [address] [place], [address], 02/08/2024 11:52:56 02/08/20 24 02/08/2024 COMP METAB OLIC PANEL ALT (SGPT) 19 IU/L 0-35 Pleas e note new refer ence inter lynn for ALT. 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 Not Available [facility] (Pre[facility]Op [facility]) [address] [place] [address] [place], [address], 02/08/2024 11:52:56 02/08/20 24 02/08/2024 COMP METAB OLIC PANEL alk phosphatase 121 IU/L 38-126 Not Available [facility] ([facility]Op [facility]) [address] [place] [address] [place], [address], 02/08/2024 11:52:56 02/08/20 24 02/08/2024 COMP METAB OLIC PANEL note Unles s other godinez noted testi ng perfo rmed at: [facility] [address] [place] [address] Juan Antonio rivera MD Not Available [facility] ([facility]) [address] [place] [address] [place], [address], 02/08/2024 11:52:56 02/08/20 24 02/08/2024 VITAM IN D, 25-HY DROXY vitamin D, 25-hydroxy 39.1 NG/mL 30-100 Vitam in D defic iency has been defin ed by the [facility] rine Soc[facility] ty pract ice guide line as a level of serum 25-OH vitam in D less than 20 ng/mL . The Endoc rine Socie ty went on to [facility] er defin e vitam in D insuf ficie ncy as a level betwe en 20 and 29 ng/mL . Level s of vitam in D betwe en 30 and 100 ng/mL are consi dered suffi ent. Level s above 100 ng/mL are consi dered poten tiall y toxic . Not Available [facility] ([facility]) [address] [place] [address] [place], [address], 02/08/2024 12:01:45 02/08/20 24 02/08/2024 VITAM IN D, 25-HY DROXY note Unles s other godinez noted testi ng perfo rmed at: [facility] [address] [place] [address] Juan Antonio rivera MD Not Available [facility] ([facility]) [address] [place] [address] [place], [address], 02/08/2024 12:01:45 02/08/20 24 02/08/2024 TSH thyroid stim hormone 3.21 uIU/m L 0.465- 4.68 Not Available [facility] ([facility]) [address] [place] [address] [place], [address], 02/08/2024 12:28:58 02/08/20 24 02/08/2024 TSH note Unles s other godinez noted testi ng perfo rmed at: [facility] [address] [place] [address] Juan Antonio rivera MD Not Available [facility] ([facility]) [address] [place] [address] [place], [address], 02/08/2024 12:28:58 02/08/20 24 02/08/2024 VITAM IN B12 vitamin B12 882 pg/mL 239-93 1 Not Available [facility] ([facility]) [address] [place] [address] [place], [address], 02/08/2024 12:33:32 02/08/20 24 02/08/2024 VITAM IN B12 note Benjie rivera other godinez noted testi ng perfo rmed at: [facility] [address] [place] [address] Juan Antonio rivera MD Not Available [facility] ([facility]) [address] [place] [address] [place], [address], 02/08/2024 12:33:32 02/08/20 24 02/08/2024 FOLAT E folate (folic acid), serum 8.2 NG/mL 2.76- Not Available [facility] (Pre[facility]Op [facility]) [address] [place] [address] [place], [address], 02/08/2024 12:50:13 02/08/20 24 02/08/2024 FOLAT E note Benjie s other godinez noted testi ng perfo rmed at: [facility] [address] [place] [address] Juan Antonio rivera MD Not Available [facility] ([facility]) [address] [place] [address] [place], [address], 02/08/2024 12:50:13 02/08/20 24 02/08/2024 T4 FREE T4 free 1.35 NG/dL 0.78-2 .19 Not Available [facility] ([facility]) [address] [place] [address] [place], [address], 02/08/2024 12:52:26 02/08/20 24 02/08/2024 T4 FREE note Unles s other godinez noted testi ng perfo rmed at: [facility] [address] [place] [address] Juan Antonio rivera MD Not Available [facility] ([facility]) [address] [place] [address] [place], [address], 02/08/2024 12:52:26 02/08/20 24 02/08/2024 METHY LMALO ANDREW ACID QUANT note Unles s other godinez noted testi ng perfo rmed at: [facility] [address] [place] [address] Juan Antonio rivera MD Not Available [facility] ([facility]) [address] [place] [address] [place], [address], 02/11/2024 18:11:06 02/08/20 24 02/11/2024 METHY LMALO ANDREW ACID QUANT methylmaloni c acid, serum 191 nmol/ L 0-378 Test( s) 59095 7-Met hylma lonic Acid, Serum was devel oped and its perfo rmanc e kayla cteri stics deter mined by [facility]. It has not been clear ed or appro dequan by the Food and Drug Admin istra tion. Perfo rmed at: - [facility] [place] [address] [facility] , [place] [address] Lab Direc tor: Blanca singh MD, Phone : [phone] Not Available [facility] ([facility]) [address] [place] [address] [place], [address], 02/11/2024 18:11:06 06/24/19 25 06/24/2024 CREAT ININE creatinine 0.9 mg/dL 0.5-1. 5 Not Available [facility] ([facility]) [address] [place] [address] [place], [address], 06/24/2024 12:55:41 06/24/19 25 06/24/2024 CREAT ININE [...] rangel ing kiney funct ion. Not Available [facility] ([facility]) [address] [place] [address] [place], [address], 06/24/2024 12:55:41 06/24/19 25 06/24/2024 CREAT ININE note Unles s other godinez noted testi ng perfo rmed at: [facility] [address] [place] [address] Juan Antonio rivera MD Not Available [facility] ([facility]) [address] [place] [address] [place], [address], 06/24/2024 12:55:41 08/18/19 25 08/17/2024 CREAT ININE creatinine 0.9 mg/dL 0.5-1. 5 Not Available [facility] ([facility]) [address] [place] [address] [place], [address], 08/17/2024 10:41:12 08/18/19 25 08/17/2024 CREAT ININE [...] rangel ing kiney funct ion. Not Available [facility] ([facility]) [address] [place] [address] [place], [address], 08/17/2024 10:41:12 08/18/19 25 08/17/2024 CREAT ININE note Unles s other godinez noted testi ng perfo rmed at: [facility] [address] [place] [address] Juan Antonio rivera MD Not Available [facility] ([facility]) [address] [place] [address] [place], [address], 08/17/2024 10:41:12 11/17/19 24 11/17/2023 elect tim boatenggr am No observ ation record ed. [facility] [address] [place] [address] [address], [place], [address], 11/17/2023 20:20:23 11/17/19 24 elect rockelechi boatenggr am No observ ation record ed. [email or web address] Not Available 2023 20:20:24 02/18/20 24 02/16/2024 PET-C T, skull base to mid-t high scan 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 Non-di agnost ic CT findin gs: None. IMPRES ILSA: 1. 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 [place], [address], 02/23/2024 15:09:34 06/24/19 25 06/24/2024 CT, abdom en + pelvi s, w/o contr ast 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 TION: malign ant neopla sm unspc [...] TERESA SHARP : 1960 Accoun t #: [id number] Age: 63 Years Patien t Type: Outpat ient Sex: F Access ion#: [id number] Exam Descri ption: CT CHEST/ ABD/PE [...] OF 3 : 1960 Accoun t #: [id number] Age: 63 Years Patien t Type: Outpat ient Sex: F Access ion#: [id number] Exam Descri ption: CT CHEST/ ABD/PE [...] GAYLE Berryitt ing Provid er: GAYLE GIMENEZ [facility] (Central Scheduling) [address] [place] [address] [place], [address], 06/27/2024 13:59:26 08/19/19 25 08/17/2024 CT, chest , w/ contr ast 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 Minima l depend ent atelec tasis versus scarri ng unchan ged. Stable subple ural micron odule in the left lower lobe apical segmen t. No new consol idatio n, pleura l effusi on or pneumo thorax . 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 No new consol idatio n, pleura l effusi on or pneumo thorax . 2. Stable subple ural micron odule in the left lower lobe apical segmen t. 3. Mild to modera te caballero ry calcif icatio ns. Mitral valve calcif icatio ns. Electr onical ly signed by: Iliana carreon MD 2024 04:10 AM EDT RP Workst ation: [id number] Princi pal Interp reter Name: Iliana carreon Provid er ID: [id number] PAGE 2 OF 2 CC'ed Logic: Orderi ng Provid er: ELGARI ED YOUSOF CC Provid er: SHEN PATTERSON AD Attend ing Provid er: ELGARI ED YOUSOF Referr ing Provid er: ELGARI ED YOUSOF Ad[facility] ing [facility] [email or web address] [facility] (Central Scheduling) [address] [place] [address], [address], 08/18/2024 08:16:46 Result Notes Documentation Provider Name and Address Organization Details Recorded Time Pet-ct, Skull Base To Mid-thigh Scan : [address] [address] (Phone) IMAGING REPORT Name: TERESA [...] MD 02/18/2024 11:46 AM EDT RP Principal Matrix Bath Attendant Name: Ebonie Olmos Provider ID: [id number] PAGE 3 OF 3 CC'ed Logic: Ordering Provider: GAYLE GIMENEZ CC Provider: SHEN HERNADEZ Attending Provider: GAYLE GIMENEZ Referring Provider: GAYLE GIMENEZ Admitting Provider: GAYLE LANDEROS [place], [place] - [facility] & [place] 02/23/2024 15:09:34 Ct, Abdomen + Pelvis, W/o Contrast : [address] [address] (Phone) IMAGING REPORT Name: TERESA URBINA Lizz : 1960 Age: 63 Years Patient Type: Outpatient Sex: F Exam Description: CT CHEST/ABD/PEL NO PO-IV ONLY Exam Reason: malignant neoplasm unspc brochus or lung Order Date/Time: 06/24/2024 02:49:15 PM Dictated By: Luis Rodriguez MD Ordering Physician: PERNELL ARAUJO Attending Physician: PERNELL ARAUJO CT CHEST ABDOMEN PELVIS WITH IV CONTRAST, 06/24/2024 1:49 PM [employer]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 PAGE 1 OF 3 Name: TERESA RUBINA : 1960 Age: 63 Years Patient Type: [...] by: Luis Rodriguez MD 06/24/2024 10:53 PM [facility] [employer] Attendant Name: Luis Rodriguez Provider ID: [id number] PAGE 3 OF 3 CC'ed Logic: Ordering Provider: GAYLE GIMENEZ CC Provider: SHEN HERNADEZ Attending Provider: GAYLE GIMENEZ Referring Provider: GAYLE GIMENEZ Admitting Provider: SAMANTA Price - [facility] - [place] & [place] 06/27/2024 13:59:26 Ct, Chest, W/ Contrast : [address] [address] (Phone) IMAGING REPORT Name: TERESA [...] MD 08/18/2024 04:10 AM EDT RP Principal Matrix Bath Attendant Name: Hardik Duff Provider ID: [id number] PAGE 2 OF 2 CC'ed Logic: Ordering Provider: NAT BONILLA CC Provider: SHEN HERNADEZ Attending Provider: NAT BONILLA Referring Provider: NAT BONILLA Admitting Provider: NAT Bush null, [place] - [facility] & [place] 08/18/2024 08:16:46 Problems Name Problem SNOMED Code Status Onset Date Resolution Date Notes Provider Name and Address Organization Details Recorded Time Prieto hematuria 816012884 Active 2021 Catherine Lamb null, [place] [facility] & [place] 09:59:40 Family history of malignant neoplasm 888922306 Active 2021 Maribeth Santos null, [place] - [place] - [place] & [place] 2 11:12:49 Retention of urine 081449206 Active 2021 Catherine Lamb [place] & [place] 2 10:00:08 Diabetes mellitus 99880494 Active 2021 Maribeth [place] & [place] 2 11:12:49 Chronic obstructive pulmonary disease 74234877 Active 2021 Maribeth [place] & [place] 2 11:12:49 Hypertensive disorder 85986184 Active 2021 Maribeth barksdale, [place] - [place] - [place] & [place] 2 11:12:49 Smoker 62785806 Active 2021 Maribeth barksdale, [place] - [place] - [place] & [place] 2 11:12:49 Urethral caruncle 9311389 Active 2021 Maribeth Santos [place] & [place] 2 11:12:49 Polyp of urethra 20885246 Active 2021 Maribeth barksdale, [place] & [place] 2 11:12:49 Atrophic vaginitis 50639746 Active 2021 Maribeth barksdale[place] & [place] 2 11:12:49 Cigarette smoker 04225615 Active Maribeth Santos [place] & [place] 2 11:12:49 Family history of malignant neoplasm of kidney 704322553 Active Maribeth [place] & [place] 2 11:12:49 Gastroesophage al reflux disease 492430983 Active 2022 Hafsa Hung null[place] & [place] 3 09:26:51 Chemotherapy-i nduced nausea and vomiting 87166520 Active 2023 Zoey Conti [place] & [place] 4 14:16:16 Abdominal bloating 458622619 Active 2023 Maribel Overton NP [address], [address], [place], [address], [place] & [place] 4 09:03:07 Acid reflux 368556104 Active 2023 Maribel Overton NP [address], [address], [place], [address], [place] & [place] 4 09:03:07 Hyperplastic polyp of large intestine 902324215 Active 2023 Maribel Overton NP [address], [address], [place], [address], [place] - [place] & [place] 4 09:03:07 Multiple renal cysts 662699314 Active 2023 Maribel Overton NP [address], [address], [place], [address], [place] & [place] 4 09:03:07 Increased body mass index 33063691 Active 2023 Maribel Overton NP [address], [address], [place], [address], [place] & [place] 4 09:03:08 Diverticular disease of colon 858608000 Active 2023 Maribel Overton NP [address], [address], [place], [address], [place] & [place] 4 09:03:08 Problem Notes None recorded. Procedures Surgical History Date Name Laterality Status Provider Name and Address Organization Details Recorded Time 07/20/19 25 6 Minute Walk Test completed Mary [place] - [facility]NT [facility] & [place] 07/19/2024 16:16:43 10/26/19 24 removal of implantable venous access port completed Rayne [place] - [facility]NT [facility] & [place] 10/27/2023 08:16:16 09/25/19 24 insertion of implantable venous access port completed Rayne [place] - [facility] - [facility] & [place] 09/28/2023 09:27:25 08/18/19 24 6 Minute Walk Test completed Amanda Tacho [place] - [facility] - [facility] & [place] 08/18/2023 13:36:17 06/30/19 24 6 Minute Walk Test completed Mary Bush [place] - [facility] - [facility] & [place] 06/30/2023 16:35:48 04/22/20 22 EMG/ Nerve Conduction Study completed Bairon Valente M.D [address], [address], [place], [address], [place] [facility] - [facility] & [place] 04/27/2022 18:10:54 04/03/20 22 EMG/ Nerve Conduction Study completed Bairon Valente M.D [address], [address], [place], [address], [place] - [facility] - [facility] & [place] 04/03/2022 15:01:54 03/24/20 22 Cystoscopy-Fema le completed Vonnie Brian [place] - [place] - [place] & [place] 03/24/2022 15:46:34 12/03/19 22 Date of Last Pap Smear completed maribeth cabezas [place] - [place] - [facility] & [place] 06/16/2022 09:02:06 08/07/19 22 completed maribeth cabezas [place] - [facility] & [place] 06/16/2022 09:02:06 ligation of bilateral fallopian tubes completed Maribeth Larose [place] - [facility] & [place] 08/24/2023 10:05:29 procedure on ear completed Maribeth [place] [facility] & [place] 08/24/2023 10:05:46 Colonoscopy completed Rayne [place]imental [place] - [place] - [facility] & [place] 09/17/2023 11:04:05 dental surgical procedure completed Rayne [place]imental [place] [facility] - [facility] & [place] 09/17/2023 11:04:15 Imaging Results None recorded. Procedure Notes None recorded. Medical Equipment None Reported. Allergies Allergen ID Allergen Name Allergen Category Reaction Reaction Severity Criticality Documentation Date Start Date Code Code System Note Provider Name and Address Organization Details Recorded Time 15183 Keflex medicatio n Not available Not available Not available 03/21/202245178 7 RxNorm [place] - [place] & [place] 2 09:59:05 90124 meloxicam medicatio n Not available Not available Not available 03/21/2022 41960 RxNorm [place] Smith LPNT - [place] & [place] 2 09:59:13 46263 lisinopri l medicatio n Not available Not available Not available 03/21/2022 76737 RxNorm [place] - [place] & [place] 2 09:59:22 Medications Name Sig Start Date [...] Not Available No t Available Dexcom G6 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 75 g 98.4 [degF] 94 % 94 % 87 /min 121/55 mm[Hg] Paige Puga [place] - [facility] [facility] & [place] 5 10:25:52 Date Recorded Body height Body mass index (BMI) Body weight Body temperature Oxygen saturation Oxygen saturation in Arterial blood by Pulse oximetry Heart rate Systolic And Diastolic Provider Name and Address Organization Details Last Updated DateTime 5 170.18 cm 39.8 kg/m2 249150. 46 g 97.4 [degF] 94 % 94 % 82 /min 130/80 mm[Hg] Mary Bush [place] - [place] [facility] & [place] 5 15:42:45 Date Recorded Body height Body mass index (BMI) Body weight Oxygen saturation Oxygen saturation in Arterial blood by Pulse oximetry Heart rate Systolic And Diastolic Provider Name and Address Organization Details Last Updated DateTime 4 170.18 cm 33 kg/m2 78744.9 9 g 94 % 94 % 134 /min 98/76 mm[Hg] Agustina Bush [facility] & [place] 4 13:10:21 Date Recorded Body height Body mass index (BMI) Body weight Body temperature Oxygen saturation Oxygen saturation in Arterial blood by Pulse oximetry Heart rate Systolic And Diastolic Provider Name and Address Organization Details Last Updated DateTime 4 170.18 cm 36.5 kg/m2 139266. 02 g 97.9 [degF] 94 % 94 % 90 /min 124/84 mm[Hg] Mary Bush [facility] & [place] 4 13:01:46 Date Recorded Body height Body mass index (BMI) Body weight Body temperature Oxygen saturation Oxygen saturation in Arterial blood by Pulse oximetry Heart rate Systolic And Diastolic Provider Name and Address Organization Details Last Updated DateTime 4 170.18 cm 38.1 kg/m2 634042. 31 g 98.1 [degF] 95 % 95 % 91 /min 140/60 mm[Hg] Maribeth Larose [facility] & [place] 4 09:19:52 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 Question Answer Notes LastModified by Organizat ion Details LastModified Time Tobacco Smoking Status Former Smoker quit [id number] Maribeth Larose [facility] & [place] 02/08/2024 09:22:44 Do You Have An Advance Directive? No [email or web address] Information not available 04/14/2022 Are You Blind Or Do You Have Difficulty Seeing? No [email or web address] Information not available 06/16/2022 What Is Your Level Of Caffeine Consumption? Occasional [email or web address] Information not available 08/24/2023 What Was The Date Of Your Most Recent Tobacco Screening? 08/24/2023 [email or web address] Information not available 08/24/2023 At What Age Did You Start Smoking Tobacco? 15 Information not available 02/08/2024 Are You Passively Exposed To Smoke? Yes Information not available 06/16/2022 How Much Tobacco Do You Smoke? 1 PPW [email or web address] Information not available 09/28/2023 Has Tobacco Cessation Counseling Been Provided? No [email or web address] Information not available 08/24/2023 How Many Years Have You Smoked Tobacco? 45 [email or web address] Information not available 06/16/2022 Sex: Unknown Functional Status Question Answer Note LastModified by Organizat ion Details LastModified Time Do you use any illicit or recreational drugs? No Information not available 03/21/2022 Do you or have you ever used any other forms of tobacco or nicotine? No [email or web address] Information not available 08/24/2023 What is your level of alcohol consumption? None Information not available 03/21/2022 Do you or have you ever used smokeless tobacco? Never used smokeless tobacco [email or web address] Information not available 04/14/2022 What is your exercise level? None [email or web address] Information not available 06/16/2022 Mental Status Question Answer Note LastModified by Organization D etails LastModified Time Do you feel stressed (tense, restless, nervous, or anxious, or unable to sleep at night)? [id number] [email or web address] Information not available 04/14/2022 Family History Relationship Description Onset Age of this Age Resolved Age Notes LastModified by Organization Details LastModified Time Brother Suspected kidney cancer [email or web address] Not available 07/19 15:03:48 Mother Heart disease [email or web address] Not available 2023 09:28:41 Mother Renal failure syndrome [email or web address] Not available 07/19 15:03:48 Mother Diabetes mellitus [email or web address] Not available 07/19 15:03:48 Mother Mother [email or web address] Not available 07/19 15:03:48 Father Diabetes mellitus Not available 07/19 15:03:48 Father Heart disease [email or web address] Not available 2023 09:29:00 Father Father [email or web address] Not available 07/19 15:03:48 Medical History Condition Response Diabetes Y Obesity Y Other Y Vision or Eye Problems Y Arthritis Y Ear or Hearing Problems Y Cancer Y Lung Disease Y COPD Y GI Problems Y Reflux/GERD Y High Cholesterol Y Hypertension Y Gynecological History Statement/Question Response Abnormal Pap N Date of Last Pap Smear 12/02/2021 Current Control Method Tubal Ligat ion 08/06/2021 Sexually Active? Y Obstetrics History GPAL:G 0 P 0 0 0 0 Past Encounters Encounter ID Performer Location Encounter Start Date Encounter Closed Date Diagnosis/Indication Diagnosis SNOMED-CT Code Diagnosis ICD10 Code Diagnosis Note [id number] Anders Meredith MD [facility] [address] [address] 03/24/2022 14:01:00 03/24/2022 16:28:54 Prieto hematuria 260909838 R31.0 Family his tory of malignant neoplasm of kidney 092146276 Z80.51 Brother Smoker 70095189 F17.210 Retention of urine 29267 4002 R33.9 Urethral caruncle 031863 3 N36.2 Polyp of urethra 2161428 1 N36.2 Atrophic vaginitis 41125 000 N95.2 [id number] Anders Meredith MD [facility] [address] [facility] [address] 07/22/2022 09:33:10 07/22/2022 10:33:55 Prieto hematuria 005923145 R31.0 Likely due to urethral caruncle Family his tory of malignant neoplasm of kidney 975460711 Z80.51 Brother Smoker 33609788 F17.210 Urethral caruncle 667397 3 N36.2 Polyp of urethra 1510499 1 N36.2 Atrophic vaginitis 30227 000 N95.2 Cyst of kidney 176420977 N28.1 bilateral with Bosniak 2 cysts on the right. Noncomplia nce with treatment 3643549 Z91.199 [id number] Bairon Valente M.D [facility] [address],[facility] [address] [place] [address] 04/03/2022 11:05:57 04/03/2022 11:43:47 Bilateral carpal tunnel syndrome 0137719073 3251368 G56.03 Neuralgia 26638538 M79.2 Paresthesia 68773606 R20 .2 [id number] MD [facility] - [address] [facility] [place] [address] 04/14/2022 09:13:12 04/14/2022 10:02:53 Family history of malignant neoplasm of kidney 986377599 Z80.51 follow with PCP and urologist History of hypertension 872251403 Z86.79 follow with PCP-diet suggest Chronic ob structive pulmonary disease 59055752 J44.9 follow with PCP anti-reflu x measure Nausea 672319716 R11.0 could be secondary to gastropare sis [...] symptoms given endoscopy further management Abdominal pain 45966217 R10.9 more for bloating she gets discomfort went is bloated although has normal bowel movement she is getting EGD colonoscop y with Dr. Hurley in May advised to keep that appointmen t and come back after the ultrasound the abdomen in 2 3 months Nausea and vomiting 1693 1999 R11.2 [id number] Bairon Valente M.D [facility] [address] [facility] [address] [place] [address] 04/22/2022 10:39:43 04/22/2022 11:47:21 Lumbosacral radiculitis 48620847 M54.17 Hyperesthesia 96659260 R 20.3 [id number] MD [facility] - [address] [facility] [place] [address] 06/16/2022 08:34:07 06/16/2022 10:33:39 Nausea 119917580 R11.0 could be secondary to gastropare sis [...] smoothies low residue Decrease in appetite 643 63322 R63.0 small to 4-5 meals a day do 4 hour gastric emptying study and follow-up in 2 3 months prescripti on for Protonix and FiberCon sent Gastroesop hageal reflux disease without esophagitis 071371794 K21.9 his reflux measure discontinu e coffee soda Protonix started has benign fundic polyp Diverticul ar disease of colon 047893703 K57.30 probiotic fiber suggested like FiberCon as she cannot eat enough fiber for the stomach [id number] Gordon Abel MD [facility] - [address] [place] [address] 09/15/2022 08:59:59 09/15/2022 13:24:46 Nausea 109260586 R11.0 she is trying to follow gastropare [...] all this thing Non-alcoho lic fatty liver 116973712 K76.0 continue low carb fatty liver diet Diverticul ar disease of colon 170264186 K57.30 probiotic fiber suggested like FiberCon as she cannot eat enough fiber for the stomach Fundic gla nd polyposis of stomach 064641553 K31.7 benign fundic polyp consider management at this time follow-up in 6 months [id number] Anders Meredith MD [facility] [address] [facility] [place] [address] 03/27/2023 11:14:58 03/27/2023 11:42:19 Cyst of kidney 044332879 N28.1 bilateral with Bosniak 2 cysts on the right. Prieto hematuria 85380634 5 R31.0 Likely due to urethral caruncle Family his tory of malignant neoplasm of kidney 037558985 Z80.51 Brother Smoker 40802023 F17.210 Urethral caruncle 227298 3 N36.2 Polyp of urethra 8586982 1 N36.2 Atrophic vaginitis 36937 000 N95.2 Noncomplia nce with treatment 3674651 Z91.199 [id number] Anders Meredith MD [facility] [address] [facility],[address] [place] [address] 05/26/2023 15:54:28 05/26/2023 16:02:14 Cyst of kidney 958552104 N28.1 bilateral with Bosniak 2 cysts on the right. Prieto hematuria 56070002 5 R31.0 Likely due to urethral caruncle Family his tory of malignant neoplasm of kidney 537301893 Z80.51 Brother Smoker 65528705 F17.210 Urethral caruncle 602846 3 N36.2 Polyp of urethra 5152830 1 N36.2 Atrophic vaginitis 24014 000 N95.2 Noncomplia nce with treatment 2639787 Z91.199 [id number] Irene Johns M.D [facility] W - [address] [place] [address] [address] [place] [address] 06/30/2023 14:42:20 06/30/2023 16:27:21 Dyspnea 421821376 R06.00 Nicotine dependence 5629 4008 Z87.891 Gastroesop hageal reflux disease without esophagitis 968352477 K21.9 [id number] Gordon Abel MD [facility] [address] [place] [address] [address] [place] [address] 07/27/2023 13:02:25 07/27/2023 13:59:41 Abdominal bloating 288882283 R14.0 given informatio n on low FODMAP diet along with probiotics Vu colon Health she is going to eliminate food that gives her gas especially certain vegetables she is off pancreatic enzyme if not better will do SIBO breath test with normal gastric emptying study Acid reflux 049771268 K2 1.9 continue PPI anti-reflu x measure weight reduction low acid diet follow-up in 4 months Hyperplast ic polyp of large intestine 280397816 K63.5 with the type of polyp is generally we do 10 years unless symptoms or signs for colonoscop y Multiple renal cysts 253 970383 N28.[address] follow with PCP Increased body mass index 95101190 E66.9 prevent metabolic liver disease advise low carb diet probiotic excess informatio n CHAPMAN in the diet associated with CHAPMAN given Diverticul ar disease of colon 823028854 K57.30 probiotic fiber suggested like FiberCon as she cannot eat enough fiber for the stomach [id number] Irene Johns M.D [facility] [address] [place] [address] 08/05/2023 12:57:43 08/05/2023 14:01:45 Dyspnea 385283843 R06.00 Nicotine dependence 5629 4008 Z87.891 Gastroesop hageal reflux disease without esophagitis 424368276 K21.9 Nodule of lung 246856193 R91.1 [id number] Irene Johns M.D [facility] [address] [place] [address] 08/18/2023 13:04:03 08/18/2023 13:40:14 Dyspnea 338688041 R06.00 Nicotine dependence 5629 4008 Z87.891 Gastroesop hageal reflux disease without esophagitis 628743814 K21.9 Nodule of lung 499149848 R91.1 Small cell carcinoma of lung 177065432 C34.90 [id number] Pernell Araujo MD [facility] [address] [place] [address] 08/24/2023 09:45:34 08/24/2023 10:54:19 Small cell carcinoma of lung 770255222 C34.90 Low-dose lung cancer screening CT on [...] etoposide starting following staging imaging. Cigarette smoker 6655507 7 F17.210 Current smoker. Will address smoking cessation as further imaging performed. Anxiety 51638770 F41.9 Anxiety with MRI. Will add as needed Valium. Will follow-up [id number] Summer Martines PA-C [facility] [address] [place] [address] 09/07/2023 07:58:02 09/07/2023 09:25:24 Small cell carcinoma of lung 469556084 C34.90 Low-dose lung cancer screening CT on [...] radiation. Chemothera py education performed. Cigarette smoker 3448053 7 F17.210 Current smoker. Will address smoking cessation as further imaging performed. Anxiety 67057586 F41.9 Anxiety with MRI. Will add as needed Valium. Will follow-up Antineopla stic chemotherapy regimen 953764376 Z51.11 Cycle 1 of etoposide and cisplatin on September 07, 2023. Chemothera py education performed. [id number] Marion Siddiqui DO [facility] General Surgery - [address] [place] [address], [address] [place] [address] 09/17/2023 10:09:43 09/21/2023 10:14:39 Small cell carcinoma of lung 375697063 C34.90 we will schedule her for power port placement at the earliest convenienc e. The procedure, risks and benefits were discussed with her and she agrees to proceed. She will have to stop her aspirin 7 days prior to the procedure. Type 2 munira betes mellitus without complication 529318176 E11.9 we will get a fasting blood sugar preoperati vely. Essential hypertension 39518580 I10 we will get blood work and an EKG preoperati vely [id number] Summer [place]ines PA-C [facility] [address] [place] [address] 09/28/2023 07:55:54 09/28/2023 08:35:00 Small cell carcinoma of lung 782353472 C34.90 Low-dose lung cancer screening CT on [...] radiation after completion concurrent radiation. Cigarette smoker 4537371 7 F17.210 Current smoker. Will address smoking cessation as further imaging performed. Anxiety 58016020 F41.9 Anxiety with MRI. Will add as needed Valium. Will follow-up Antineopla stic chemotherapy regimen 319040345 Z51.11 Cycle 1 of etoposide and cisplatin on September 07, 2023. Chemothera py education performed. Cycle 2 of etoposide and cisplatin on September 28, 2023. [id number] Irene Johns M.D [facility] W - [address] [place] [address] [place] [address] 09/29/2023 15:06:32 09/29/2023 16:06:06 Dyspnea 613106809 R06.00 Nicotine dependence 5629 4008 Z87.891 Gastroesop hageal reflux disease without esophagitis 752915982 K21.9 Nodule of lung 674918618 R91.1 Small cell carcinoma of lung 924016115 C34.90 [id number] DO Manfred Phippsjustin nataly General Surgery - [address] [place] [address], [address] [place] [address] 10/06/2023 11:13:56 10/07/2023 08:01:43 Postoperative visit 964578702 Z48.89 Status post power port placement she is doing well. She does not need to see me again unless she has a problem. Small cell carcinoma of lung 607913166 C34.90 we discussed that the port can stand for years as long as it is functional and does not become infected. [id number] Pernell Araujo MD [facility] [address] [place] [address] 10/19/2023 07:53:40 10/19/2023 09:32:29 Small cell carcinoma of lung 231134097 C34.90 Low-dose lung cancer screening CT on [...] next few weeks. Will follow-up Cigarette smoker 7611897 7 F17.210 Current smoker. Will address smoking cessation as further imaging performed. Anxiety 18401923 F41.9 Anxiety with MRI. Will add as needed Valium. Will follow-up Antineopla stic chemotherapy regimen 943618668 Z51.11 Cycle 1 of etoposide and cisplatin on September 07, 2023. Chemothera py education performed. Cycle 2 of etoposide and cisplatin on September 28, 2023.Radia tion therapy completed during cycle 2. Cycle 3 of cisplatin and etoposide on October 19, 2023. [id number] Summer [place]ines PA-C [facility] [address] [place] [address] 11/09/2023 08:09:17 11/09/2023 08:49:48 Small cell carcinoma of lung 517812111 C34.90 Low-dose lung cancer screening CT on [...] continue with last cycle today. Cigarette smoker 3078830 7 F17.210 Current smoker. Will address smoking cessation as further imaging performed. Anxiety 52449312 F41.9 Anxiety with MRI. Will add as needed Valium. Will follow-up Antineopla stic chemotherapy regimen 052260967 Z51.11 Cycle 1 of etoposide and cisplatin on September 07, 2023. Chemothera py education performed. Cycle 2 of etoposide and cisplatin on September 28, 2023.Radia tion therapy completed during cycle 2.Cycle 3 of cisplatin and etoposide on October 19, 2023.Cycle 4 of cisplatin and etoposide on November 09, 2023. Anemia 387014852 D64.9 Will follow up on labs. [id number] Irene Johns M.D [facility] W - [address] [place] [address] [address] [place] [address] 01/25/2024 12:55:29 01/25/2024 13:23:22 Dyspnea 682360463 R06.00 Nicotine dependence 5629 4008 Z87.891 Gastroesop hageal reflux disease without esophagitis 365964831 K21.9 Nodule of lung 999946323 R91.1 Small cell carcinoma of lung 539361678 C34.90 [id number] Pernell Araujo MD [facility] -[address] [place] [address] 02/08/2024 09:02:49 02/08/2024 10:29:55 Small cell carcinoma of lung 605377507 C34.90 Low-dose lung cancer screening CT on [...] radiation next week. MRI of the brain negative.Vlad alisa presents to clinic on September 07, [...] MRI of the brain next month at [facility] in [place]. Will follow up evaluation with Radiation Medicine. Cigarette smoker [id number] F17.210 Current smoker. Will address smoking cessation as further imaging performed. Anxiety [id number] F41.9 Anxiety with MRI. Will add as needed Valium. Will follow-up Antineopla stic chemotherapy regimen [id number] Z51.11 Cycle 1 of etoposide and cisplatin on September 07, 2023. Chemothera py education performed. Cycle 2 of etoposide and cisplatin on September 28, 2023.Radia tion therapy completed during cycle 2.Cycle 3 of cisplatin and etoposide on October 19, 2023.Cycle 4 of cisplatin and etoposide on November 09, 2023. Idiopathic peripheral neuropathy 27579420 G60.9 Patient with history of peripheral neuropathy . Currently on gabapentin 600 mg 4 times a day. Refill for gabapentin sent. [id number] Pernell Araujo MD [facility] [address] [facility] [place] [address] 05/19/2024 10:09:43 05/19/2024 11:23:53 Small cell carcinoma of lung [id number] C34.90 Low-dose lung cancer screening CT on [...] again in another few months. Cigarette smoker [id number] 7 F17.210 Current smoker. Will address smoking cessation as further imaging performed. Anxiety 62340022 F41.9 Anxiety with MRI. Will add as needed Valium. Will follow-up Antineopla stic chemotherapy regimen [id number] Z51.11 Cycle 1 of etoposide and cisplatin on September 07, 2023. Chemothera py education performed. Cycle 2 of etoposide and cisplatin on September 28, 2023.Radia tion therapy completed during cycle 2.Cycle 3 of cisplatin and etoposide on October 19, 2023.Cycle 4 of cisplatin and etoposide on November 09, 2023. Idiopathic peripheral neuropathy 09560239 G60.9 Patient with history of peripheral neuropathy . Currently on gabapentin 600 mg 4 times a day. Refill for gabapentin sent. [id number] Irene Johns M.D [facility] [address] [place] [address] [place] [address] 07/19/2024 15:01:50 07/19/2024 16:16:02 Dyspnea 565434658 R06.00 Nicotine dependence 5629 4008 Z87.891 Gastroesop hageal reflux disease without esophagitis 211230501 K21.9 Nodule of lung 947554061 R91.1 Small cell carcinoma of lung 984416520 C34.90 Health Concerns Section Related Observation LastModified by Organization Detai ls LastModified Time None Recorded Concern Status LastModified by Organization Details LastModified Time None Recorded Advance Directives Directive N: Payers Insurance Date Sequence Insurance Name Policy Number Policy Hutson Covered Member ID Hutson Member ID Guarantor Name 05/19/2024 1 [place] [id number] Teresa Urbina [id number] Teresa Urbina 09/10/2024 1 [facility] (MEDICAID REPLACEMENT - HMO) Teresa Urbina [id number] Teresa Urbina Notes Date Note Type Note [...] hoarse after having treatments. Irene Johns M.D [address] [place] [address], [address], [address], [facility] - [facility] & [place] 01/25/2024 16:26:43 02/08/2024 text/html 63 yo F [...] Hopeful continued observation only. Pernell Araujo MD [address] [facility], [place], [address], [place] - [facility] - [place] & [place] 02/08/2024 10:31:17 05/19/2024 text/html 63 yo F [...] another few months. Pernell Araujo MD [address], [place], [address], [place] - [facility] & [place] 05/19/2024 11:51:12 07/19/2024 text/html Patient is a [...] hospitalization for breathing issues. Irene Johns M.D [address] [place] [address], [address], [place], [address], [facility] - [facility] & [place] 07/19/2024 17:02:42 OBGyn Episode No OBEpisode recorded.
--- OUTSIDE RECORDS SUMMARY | 2024-11-24 20:55 | XMS_ITS | Encounter Summary ---
Author Organization Healthcare Address [address] [place] [address] Care Team Providers Care Senior Major Gifts Officer Name Role Phone Laurie Gutierrez MD Primary Care Provider [phone] Joshua Martínez MD Unavailable Encounter Details Date Type Department Care Team (Late st Contact Info) Description 11/07/2024 Orders Only [facility] Radiation [id number] [place] [address] Radiation Oncology, Physician, [facility] [place] [address] 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 Tobacco Use Types Packs/Day Years [...] first t laurie in the morning (EYE-WELT BUTTER HAND) to steady your nerves or to [...] [facility] Head, Neck & Respiratory [address] [facility] [place] [facility], 2nd [place] [address] 11/29/2024 11:00 AM EDT Office Visit [facility] Head[facility] Neck & Respiratory [address] [facility] [place] [facility], 2nd [place] [address] Satnam Colvin MD [address] [facility] [place] [facility] Nuria Degroot [facility] [address] [place] [address] 11/29/2024 12:30 PM EDT Appointment [facility] 1 [address] [place] [address] 11/30/2024 1:30 PM EDT Appointment [facility] 1 [address] [place] [address] 12/01/2024 2:00 PM EDT Appointment [facility] 1 [address] [place] [address] 12/06/2024 11:40 AM EDT Appointment [facility] Radiation [address] [id number] [place] [address] Haven Blum, MANAGER CONFIGURATION [address] [facility] [address] [place] [address] 01/19/2025 9:30 AM EDT Appointment P[facility] S Radiology [address], 1st [place] [address] 01/19/2025 10:45 AM EDT Office [facility] [place] [facility] [address], 1st [place] [address] Abhilash Bangura MD [address] [place] [address] 03/08/2025 1:00 PM EDT Office Visit [facility] Abie Wenceslao 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 10/26/2024 10/31/2024 Assessment Noted Time PHQ-9 Depression Total Score: 0 09/01/19 3:26 PM EDT A fall risk assessment has been complete d for the patient 10/06/2024 2:29 PM EDT A Body Mass Index follow-up plan has been documented for the patient 10/31/2024 4:09 PM EDT documented as of this encounter Care Teams Senior Major Gifts Officer Relationship Specialty Start Date End Date Laurie Gutierrez MD [address] [place] [address] PCP - General 12/09/23 Joshua Martínez MD [address] [place], [place] [address] [place] [address] Consulting Physician Radiation Oncology 09/19/24 documented as of this encounter
--- OUTSIDE RECORDS SUMMARY | 2024-11-24 20:56 | XMS_ITS | Encounter Summary ---
Author Organization Healthcare Address [address] [place] [address] Care Team Providers Care Resource Specialist Teacher Name Role Phone Laurie Gutierrez MD Primary Care Provider Joshua Martínez MD Unavailable Encounter Details Date Type Department Care Team (Late st Contact Info) Description 11/02/2024 Orders Only [facility] Radiation [address] [id number] [place] [address] Radiation Oncology, Physician, [facility] [place] [address] 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 Tobacco Use Types Packs/Day Years [...] in a fci (including now)? No 10/14/2024 Humiliation, Afraid, Rape, [...] living in a fci (including now)? No 10/26/2024 CAGE ASSESSMENT Answer [...] drink first t laurie in the morning (EYE-TRAVELING PASSENGER AGENT) to steady your nerves or to [...] [facility] Head[facility] Neck & Respiratory [address] [address] 11/29/2024 11:00 AM EDT Office Visit [facility] Head[facility] Neck & Respiratory [address] [address] Satnam Colvin MD 800 [facility] [address] [place] [address] 11/29/2024 12:30 PM EDT Appointment [facility] 1 [address] [place] [address] 11/30/2024 1:30 PM EDT Appointment [facility] 1 [address] [place] [address] 12/01/2024 2:00 PM EDT Appointment [facility] [address] [place] [address] 12/06/2024 11:40 AM EDT Appointment [facility] CC Radiation [address] [id number] [place] [address] Haven Blum, BELT REPAIRER [address] [place] [address] 01/19/2025 9:30 AM EDT Appointment P[facility] S Radiology [address], 1st [place] [address] 01/19/2025 10:45 AM EDT Office Visit [place] [facility] [address], 1st [place] [address] Abhilash Bangura MD [address] [place] [address] 03/08/2025 1:00 PM EDT Office Visit [facility] [place] Wenceslao 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, PEST CONTROL SERVICE SALES AGENT Panic 10/26/2024 10/31/2024 Assessment Noted Time PHQ-9 Depression Total Score: 0 09/01/19 25 3:26 PM EDT A fall risk assessment has been complete d for the patient 10/06/2024 2:29 PM EDT A Body Mass Index follow-up plan has been documented for the patient 10/31/2024 4:09 PM EDT documented as of this encounter Care Teams Resource Specialist Teacher Relationship Specialty Start Date End Date Laurie Gutierrez MD [address] [place] [address] PCP - General 12/09/23 Joshua Martínez MD [address] [place] [address] Consulting Physician Radiation Oncology 09/19/24 documented as of this encounter
--- OUTSIDE RECORDS SUMMARY | 2024-11-24 20:56 | XMS_ITS | Encounter Summary ---
Author Organization Healthcare Address [address] [place] [address] Care Team Providers Care Cargo Surveyor Name Role Phone Laurie Gutierrez MD Primary Care Provider [phone] Joshua Martínez MD Unavailable Paradise Pacheco RN Unavailable Unavailab le Encounter Details Date Type Department Care Team (Late st Contact Info) Description 11/15/2024 Orders Only External Location [address] [place] [address] Provider, External 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 Tobacco Use Types [...] any time in the past 12 m [facility], were you homeless or [...] any time in the past 12 m [facility], were you homeless or living in a snf (including now)? No 11/21/2024 CAGE ASSESSMENT Answer [...] drink first t laurie in the morning (EYE-DIGITAL COORDINATOR) to steady your nerves or to get rid of a hangover? 0 10/27/2024 CAGE Questionnaire Score 0 025 Utilities Answer Date Recorded In the past 12 months has e [employer], gas, oil, or water [employer]ach[employer] threatened to shut off services in your [...] Pav CC Head, Neck & Respiratory [address] [facility], 2nd [place] [address] 11/29/2024 11:00 AM EDT Office Visit Pav CC Head, Neck & Respiratory [address] [facility], 2nd [place] [address] Satnam Colvin MD [address] [facility] [address] [place] [address] 11/29/2024 12:30 PM EDT Appointment [facility] 1 [address] [place] [address] 11/30/2024 1:30 PM EDT Appointment [facility] 1 [address] [place] [address] 12/01/2024 2:00 PM EDT Appointment [facility] 1 [address] [place] [address] 12/06/2024 11:40 AM EDT Appointment [facility] CC Radiation [address] [facility]. [id number] [place] [address] Haven Blum, KETTLE HAND [address] [facility] [address] [place] [address] 01/19/2025 9:30 AM EDT Appointment P[facility] S Radiology [address], 1st [place] [address] 01/19/2025 10:45 AM EDT Office Visit [place] [facility] [address], 1st [place] [address] Abhilash Bangura MD [address] [place] [address] 03/08/2025 1:00 PM EDT Office Visit [facility] [place] Wenceslao [address] [place] [address] Teresita Oconnell MD [address] [place] [address] documented as of this encounter Procedures Procedure Name Priority Date/Time Associated Diagnosis Comments CT OUTSIDE IMAGES 11/15/2024 2:38 PM EDT documented in this encounter Results * CT OUTSIDE IMAGES (11/15/2024 2:38 PM EDT) Anatomical Region Laterality Modality Computed Tomogra phy 11/15/2024 2:38 PM EDT External Provider IMG CT PROCEDURES Final Result documented in this encounter Visit Diagnoses Not on filedocumented in this encounter Additional Health Concerns Infection Onset Date Last Indicated Resolved Time 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, 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 Panic 10/26/2024 10/31/2024 Assessment Noted Time PHQ-9 Depression Total Score: 0 09/01/19 3:26 PM EDT A fall risk assessment has been complete d for the patient 11/10/2024 2:43 PM EDT A Body Mass Index follow-up plan has been documented for the patient 11/08/2024 5:14 PM EDT documented as of this encounter Care Teams Cargo Surveyor Relationship Specialty Start Date End Date Laurie Gutierrez MD [address] [place] [address] PCP - General 12/09/23 Joshua Martínez MD [address] [phone] Consulting Physician Radiation Oncology 09/19/24 Paradise Pacheco, RN [facility] INTERVENTIONAL RADIOLOGY Registered Nurse 11/21/24 11/21/24 documented as of this encounter
--- OUTSIDE RECORDS SUMMARY | 2024-11-24 20:56 | XMS_ITS ---
Author Organization [facility] Address [address] [place] [address] Care Team Providers Care Clinical Leader Name Role Phone Laurie Gutierrez MD Primary Care Provider [phone] Joshua Martínez MD Unavailable Sabine Morales LPN Unavailable Unavailable Transitional Care Management Status:Identified (Enrolling) Start date:11/23/2024 Enrollment reason:Identified using hospital discharge data Overview This episode type is for outpatient care managers enrolling patients in the [facility] Transitional Care Management program. Case Team Name Relationship Phone Sabine Morales LPN(Responsible Staff) TCM Nurse Continued Care and Services Coordination
--- OUTSIDE RECORDS SUMMARY | 2024-11-24 20:56 | XMS_ITS | Encounter Summary ---
Author Organization Healthcare Address [address] [place] [address] Care Team Providers Care Automotive Power Electronics Engineer Name Role Phone Laurie Gutierrez MD Primary Care Provider [phone] Joshua Martínez MD Unavailable Reason for Visit * Reason Comments Resource Navigation Encounter Details Date Type Department Care Team (Late st Contact Info) Description 11/04/2024 Social Work Psych Oncology [address] [place] [address] Mariah Rowley 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 Tobacco Use Types [...] in the past 12 m [facility], were you homeless or living [...] in the past 12 m [facility], were you homeless or living [...] drink first t laurie in the morning (EYE-BILINGUAL SALES CONSULTANT) to steady your nerves or to get rid of a hangover? 0 10/27/2024 CAGE Questionnaire Score 0 025 Utilities Answer Date Recorded In the past 12 months has th [employer], gas, oil, or water company threatened to [...] Call Disease Status: Established Patient Clinic Location: [facility] Disease Type: Lung & Bronchus, Brain & Other Nervous System Services Provided: Clinical Navigation Education Provided: Lodging Intervention Level: 2 Units (1 unit = 15 minutes): 1 Narrative: BREAKFAST SERVER reached out to pt to discuss the possibility of extending pt's lodging. BREAKFAST SERVER informed pt that, after discussing appt dates with pt's care team, that lodging cannot be extended. BREAKFAST SERVER informed pt that pt's last rad tx is on 11/07 and last infusion on 11/10 and because of this pt's current stay at cannot be extended. Pt voiced understanding and appreciation for the assistance. No further needs identified. BREAKFAST SERVER to remain available for any ongoing needs or support. NAVEED Ashley, BREAKFAST SERVER [facility] Psych-Oncology Services documented in this encounter Plan of Treatment Upcoming Encounters Date Type Department Care Team (Late st Contact Info) Description 11/29/2024 10:30 AM EDT Clinical Support Pav CC Head, Neck & Respiratory 800 [facility], 2nd [place] [address] 11/29/2024 11:00 AM EDT Office Visit Pav CC Head, Neck & Respiratory [address] [facility], 2nd [place] [address] Satnam Colvin MD 800 [facility] [address]uria [address] [place] [address] 11/29/2024 12:30 PM EDT Appointment [facility] 1 [address] [place] [address] 11/30/2024 1:30 PM EDT Appointment [facility] 1 [address] [place] [address] 12/01/2024 2:00 PM EDT Appointment [facility] 1 [address] [place] [address] 12/06/2024 11:40 AM EDT Appointment P[facility] CC Radiation [address] [facility]. [id number] [place] [address] Haven Blum, ANNEALING FURNACE TENDER [address] [facility] [address] [place] [address] 01/19/2025 9:30 AM EDT Appointment P[facility] S Radiology [address], 1st [place] [address] 01/19/2025 10:45 AM EDT Office Visit [place] [facility] [address], 1st [place] [address] Abhilash Bangura MD [address] [place] [address] 03/08/2025 1:00 PM EDT Office Visit [facility] [place] Wenceslao 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 INSTALLER Panic 10/26/2024 10/31/2024 Assessment Noted Time PHQ-9 Depression Total Score: 0 09/01/19 3:26 PM EDT A fall risk assessment has been complete d for the patient 10/06/2024 2:29 PM EDT A Body Mass Index follow-up plan has been documented for the patient 10/31/2024 4:09 PM EDT documented as of this encounter Care Teams Automotive Power Electronics Engineer Relationship Specialty Start Date End Date Laurie Gutierrez MD [address] [place] [address] PCP - General 12/09/23 Joshua Martínez MD [address] [place] [address] Consulting Physician Radiation Oncology 09/19/24 documented as of this encounter
--- OUTSIDE RECORDS SUMMARY | 2024-11-24 20:56 | XMS_ITS | Encounter Summary ---
Author Organization Healthcare Address [address] [place] [address] Care Team Providers Care Check Cashier Name Role Phone Laurie Gutierrez MD Primary Care Provider [phone] Joshua Martínez MD Unavailable Jasmina Smith LPN Unavailable Unavailable Reason for Visit * Reason Comments TCM Call Encounter Details Date Type Department Care Team (Late st Contact Info) Description 11/01/2024 Patient Outreach POPULATION [facility] [address] [facility] [place] [address] Jasmina Smith LPN VALUE-BASED [place] [address] TCM Call 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 Tobacco Use Types [...] drink first t laurie in the morning (EYE-STATE TESTED NURSING ASSISTANT) to steady your nerves or to [...] Upcoming Encounters Date Type Department Care Team ([facility] st Contact Info) Description 11/29/2024 10:30 AM EDT Clinical Support Pav CC Head, Neck & Respiratory 800 [facility] 2nd [place] [address] 11/29/2024 11:00 AM EDT Office Visit Pav CC Head, Neck & Respiratory [address] [address] Satnam Colvin MD 800 [facility] [address] [place] [address] 11/29/2024 12:30 PM EDT Appointment [facility] 1 [address] [place] [address] 11/30/2024 1:30 PM EDT Appointment [facility] 1 [address] [place] [address] 12/01/2024 2:00 PM EDT Appointment [facility] [address] [place] [address] 12/06/2024 11:40 AM EDT Appointment [facility] CC Radiation [id number] [place] [address] Haven Blum, TWISTING DEPARTMENT END FINDER [address] [place] [address] 01/19/2025 9:30 AM EDT Appointment P[facility] S Radiology [address], 1st [place] [address] 01/19/2025 10:45 AM EDT Office [facility] [place] [facility] [address], [address] [place] [address] Abhilash Bangura MD [address] [place] [address] 03/08/2025 1:00 PM EDT Office Visit [facility] [place] Wenceslao 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 PROFESSOR Panic 10/26/2024 10/31/2024 Assessment Noted Time PHQ-9 Depression Total Score: 0 09/01/19 25 3:26 PM EDT A fall risk assessment has been complete d for the patient 10/06/2024 2:29 PM EDT A Body Mass Index follow-up plan has been documented for the patient 10/31/2024 4:09 PM EDT documented as of this encounter Care Teams Check Cashier Relationship Specialty Start Date End Date Laurie Gutierrez MD [address] [place] [address] PCP - General 12/09/23 Joshua Martínez MD [address] [place] [address] [address] [place] [address] Consulting Physician Radiation Oncology 09/19/24 Jasmina Smith LPN VALUE-BASED [place] [address] TCM Nurse 10/19/24 11/01/24 documented as of this encounter
--- OUTSIDE RECORDS SUMMARY | 2024-11-24 20:56 | XMS_ITS | Encounter Summary ---
Author Organization [facility] Address [address] [place] [address] Care Team Providers Care Forge Tender Name Role Phone Paola Hyde APRN Primary Care Provider Laurie Gutierrez MD Primary Care Provider [phone] Joshua Martínez MD Unavailable Jasmina Smith DATA CENTER SOLUTIONS ARCHITECT Unavailable Unavailable Paradise Pacheco RN Unavailable Unavailab Sabine Crowe DATA CENTER SOLUTIONS ARCHITECT Unavailable Unavailable Encounter Details Date Type Department Care Team (Late Contact Info) Description 07/31/2023 Orders Only External Location [address] [place] [address] Provider, External 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 Tobacco [...] Respiratory 800 [facility], [address]nd [place] [address] 11/29/2024 11:00 AM EDT Office Visit [facility] Head, Neck & Respiratory 800 [facility], [address] [place] [address] Satnam Colvin MD 800 [facility] [address] [place] [address] 11/29/2024 12:30 PM EDT Appointment [facility] 1 [address] [place] [address] 11/30/2024 1:30 PM EDT Appointment [facility] 1 [address] [place] [address] 12/01/2024 2:00 PM EDT Appointment [facility] 1 [address] [place] [address] 12/06/2024 11:40 AM EDT Appointment [facility] CC Radiation 800 [facility]. [id number] [place] [address] Haven Blum, DIRECTOR OF REIMBURSEMENT 800 [facility] [address] [place] [address] 01/19/2025 9:30 AM EDT Appointment P[facility] S Radiology [address], 1st [place] [address] 01/19/2025 10:45 AM EDT [facility] [address], 1st [place] [address] Abhilash Bangura MD [address] [place] [address] 03/08/2025 1:00 PM EDT Office Visit [facility] [place] [facility] 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, ORDER PROCESSOR Panic 10/26/2024 10/31/2024 documented as of this encounter Care Teams Forge Tender Relationship Specialty Start Date End Date Paola Hyde APRN [address] [place] [address] PCP - General 09/28/20 12/08/23 Laurie Gutierrez MD [address] [place] [address] PCP - General 12/09/23 Joshua Martínez MD [address] [phone] Consulting Physician Radiation Oncology 09/19/24 Jasmina Smith LPN VALUE-BASED [place] [address] TCM Nurse 10/19/24 11/01/24 Paradise Pacheco, RN CH-VASCULAR & INTERVENTIONAL RADIOLOGY Registered Nurse 11/21/24 11/21/24 Sabine Morales LPN TCM Nurse 11/23/24 documented as of this encounter
--- OUTSIDE RECORDS SUMMARY | 2024-11-24 20:56 | XMS_ITS ---
Author Organization [facility] Address [address] [place] [address] Care Team Providers Care Communication Equipment Repairer Name Role Phone Laurie Gutierrez MD Primary Care Provider [phone] Joshua Martínez MD Unavailable Sabine Morales LPN Unavailable Unavailable LINK Program Status:Closed (Closed) Start date:11/21/2024 Enrollment date:11/21/2024 End date:11/21/2024 Close reason:Not Eligible Overview Patient identified for LINK program. Program was closed at the time of review. Following chart review, patient determined to be ineligible based on program criteria. Continued Care and Services Coordination
--- OUTSIDE RECORDS SUMMARY | 2024-11-24 20:56 | XMS_ITS | Encounter Summary ---
Author Organization Healthcare Address [address] [place] [address] Care Team Providers Care Dipper Fish Name Role Phone Laurie Gutierrez MD Primary Care Provider [phone] Joshua Martínez MD Unavailable Encounter Details Date [...] drink first t laurie in the morning (EYE-TUMBLING INSTRUCTOR) to steady your nerves or to get rid of a hangover? 0 10/27/2024 CAGE Questionnaire Score 0 025 Utilities Answer Date Recorded In the past 12 months has [employer], gas, oil, or water company threatened to shut off services in your home? No 10/26/2024 Comments No Sex and Gender Information Value Date Recorded Sex Assigned at Not on file Legal Sex Female 8:32 PM EDT Gender Identity Not on file Sexual Orientation Not on file documented as of this encounter Plan of Treatment Upcoming Encounters Date Type Department Care Team ([facility] Contact Info) Description 11/29/2024 10:30 AM EDT Clinical Support Pav CC Head, Neck & Respiratory 800 [facility], [address]nd [place] [address] 11/29/2024 11:00 AM EDT Office Visit Pav CC Head, Neck & Respiratory 800 [facility], 2nd [place] [address] Satnam Colvin MD 800 [facility] [address] [facility] [address] [place] [address] 11/29/2024 12:30 PM EDT Appointment [facility] 1 [address] [place] [address] 11/30/2024 1:30 PM EDT Appointment [facility] 1 [address] [place] [address] 12/01/2024 2:00 PM EDT Appointment [facility] 1 [address] [place] [address] 12/06/2024 11:40 AM EDT Appointment [facility] CC Radiation [id number] [place] [address] Haven Blum, GLAZE MIXER 800 [facility] [address] [place] [address] 01/19/2025 9:30 AM EDT Appointment P[facility] S Radiology [address], 1st [place] [address] 01/19/2025 10:45 AM EDT Office Visit [place] [facility] [address], 1st [place] [address] Abhilash Bangura MD [address] [place] [address] 03/08/2025 1:00 PM EDT Office Visit [facility] [place] [facility] 800 [facility]. 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 Panic 10/26/2024 10/31/2024 Assessment Noted Time PHQ-9 Depression Total Score: 0 09/01/19 25 3:26 PM EDT A fall risk assessment has been complete d for the patient 11/09/2024 2:52 PM EDT A Body Mass Index follow-up plan has been documented for the patient 11/08/2024 5:14 PM EDT documented as of this encounter Care Teams Dipper Fish Relationship Specialty Start Date End Date Laurie Gutierrez MD [address] [place] [address] PCP - General 12/09/23 Joshua Martínez MD [address] [place] [address] [address] [place] [address] Consulting Physician Radiation Oncology 09/19/24 documented as of this encounter
--- OUTSIDE RECORDS SUMMARY | 2024-11-24 20:56 | XMS_ITS | Encounter Summary ---
Author Organization Healthcare Address [address] [place] [address] Care Team Providers Care Fish Peddler Name Role Phone Laurie Gutierrez MD Primary Care Provider [phone] Joshua Martínez MD Unavailable Reason for Visit * Reason Comments Resource Navigation Encounter Details Date Type Department Care Team (Late st Contact Info) Description 11/02/2024 Social Work Psych Oncology [address] [place] [address] Mariah Rowley 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 Tobacco Use Types [...] in the past 12 m [facility], were you homeless or living [...] in the past 12 m [facility], were you homeless or living [...] drink first t laurie in the morning (EYE-HARNESS RACING HANDICAPPER) to steady your nerves or to get rid of a hangover? 0 10/27/2024 CAGE Questionnaire Score 0 025 Utilities Answer Date Recorded In the past 12 months has th [employer], gas, oil, or water company threatened to [...] Call Disease Status: Established Patient Clinic Location: [facility] Disease Type: Lung & Bronchus, Brain & Other Nervous System Services Provided: Clinical Navigation Education Provided: Lodging Intervention Level: 3 Units (1 unit = 15 minutes): 2 Narrative: CLINICAL NURSE LEADER received phone call from pt asking about having lodging extended for upcoming tx. Pt currently staying at through 11/10 as arranged by inpatient CM prior to dc. Per pt's sister, pt's tx is to be extended. CM attempted to explain that pt's appts only go until 11/10 but pt's sister adamant that pt will be going for several more treatments. CLINICAL NURSE LEADER explained that there is a different scheduling system for radiation appts and that CLINICAL NURSE LEADER would need to reach out to rad med team in order to clarify new appt dates before setting up any new lodging. Pt's sister agreeable to receiving phone call once clarification received. CLINICAL NURSE LEADER currently waiting to hear back from care team about whether or not pt's appts being extended past 11/10. No further needs identified. CLINICAL NURSE LEADER to remain available for any ongoing needs or support. Mariah Rowley, TRACK MACHINE OPERATOR REPAIRER, CLINICAL NURSE LEADER [facility] Psych-Oncology Services documented in this encounter Plan of Treatment Upcoming Encounters Date Type Department Care Team (Late st Contact Info) Description 11/29/2024 10:30 AM EDT Clinical Support Pav CC Head, Neck & Respiratory 800 [facility], 2nd [place] [address] 11/29/2024 11:00 AM EDT Office Visit Pav CC Head, Neck & Respiratory 800 [facility], [address]nd [place] [address] Satnam Colvin MD 800 [facility] [address] [facility] [address] [place] [address] 11/29/2024 12:30 PM EDT Appointment [facility] 1 [address] [place] [address] 11/30/2024 1:30 PM EDT Appointment [facility] 1 [address] [place] [address] 12/01/2024 2:00 PM EDT Appointment [facility] 1 [address] [place] [address] 12/06/2024 11:40 AM EDT Appointment [facility] CC Radiation 800 [facility]. [id number] [place] [address] Haven Blum, BIODIESEL PRODUCT MANAGER 800 [facility] [address] [place] [address] 01/19/2025 9:30 AM EDT Appointment P[facility] S Radiology [address], 1st [place] [address] 01/19/2025 10:45 AM EDT Office Visit [place] [facility] [address], 1st [place] [address] Abhilash Bangura MD [address] [place] [address] 03/08/2025 1:00 PM EDT Office Visit [facility] [place] [facility] 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, EYEGLASS FITTER Panic 10/26/2024 10/31/2024 Assessment Noted Time PHQ-9 Depression Total Score: 0 09/01/19 25 3:26 PM EDT A fall risk assessment has been complete d for the patient 10/06/2024 2:29 PM EDT A Body Mass Index follow-up plan has been documented for the patient 10/31/2024 4:09 PM EDT documented as of this encounter Care Teams Fish Peddler Relationship Specialty Start Date End Date Laurie Gutierrez MD [address] [place] [address] PCP - General 12/09/23 Joshua Martínez MD [address] [place] [address] Consulting Physician Radiation Oncology 09/19/24 documented as of this encounter
--- OUTSIDE RECORDS SUMMARY | 2024-11-24 20:56 | XMS_ITS | Encounter Summary ---
Author Organization Healthcare Address [address] [place] [address] Care Team Providers Care Maintenance Supervisor 2Nd Shift Name Role Phone Laurie Gutierrez MD Primary Care Provider [phone] Joshua Martínez MD Unavailable Paradise Pacheco RN Unavailable Unavailab le Encounter Details Date Type Department Care Team (Late st Contact Info) Description 11/15/2024 Orders Only External Location [address] [place] [address] eRgina Katz D, MONORAIL HOOKER [address] [place] [address] 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 Tobacco Use Types [...] living in a half-way (including now)? No 11/21/2024 CAGE ASSESSMENT Answer [...] drink first t laurie in the morning (EYE-SPINNER HAND) to steady your nerves or to [...] Respiratory 800 [facility], 2nd [place] [address] 11/29/2024 11:00 AM EDT Office Visit Pav CC Head, Neck & Respiratory 800 [facility], 2nd [place] [address] Satnam Colvin MD 800 [facility] [address] [place] [address] 11/29/2024 12:30 PM EDT Appointment [facility] 1 [address] [place] [address] 11/30/2024 1:30 PM EDT Appointment [facility] 1 [address] [place] [address] 12/01/2024 2:00 PM EDT Appointment [facility] 1 [address] [place] [address] 12/06/2024 11:40 AM EDT Appointment [facility] CC Radiation 800 [facility]. [id number] [place] [address] Haven Blum, MONORAIL HOOKER 800 [facility] [address] [place] [address] 01/19/2025 9:30 AM EDT Appointment [facility] S Radiology [address], 1st [place] [address] 01/19/2025 10:45 AM EDT Office Visit [place] [facility] [address], 1st [place] [address] Abhilash Bangura MD [address] [place] [address] 03/08/2025 1:00 PM EDT Office Visit [facility] [place] [facility] [address] [place] [address] Teresita Oconnell MD [address] [place] [address] documented as of this encounter Procedures Procedure Name Priority Date/Time Associated Diagnosis Comments CT OUTSIDE IMAGES 11/15/2024 2:38 PM EDT documented in this encounter Results * CT OUTSIDE IMAGES (11/15/2024 2:38 PM EDT) Anatomical Region Laterality Modality Computed Tomogra phy 11/15/2024 2:38 PM EDT Regina Katz APRN IMG CT PROCEDURES Final Res ult documented in this encounter Visit Diagnoses Not on filedocumented in this encounter Additional Health Concerns Infection Onset Date Last Indicated Resolved Time 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, RETAIL ADVISOR Panic 10/26/2024 10/31/2024 Assessment Noted Time PHQ-9 Depression Total Score: 0 09/01/19 3:26 PM EDT A fall risk assessment has been complete d for the patient 11/10/2024 2:43 PM EDT A Body Mass Index follow-up plan has been documented for the patient 11/08/2024 5:14 PM EDT documented as of this encounter Care Teams Maintenance Supervisor 2Nd Shift Relationship Specialty Start Date End Date Laurie Gutierrez MD [address] [place] [address] PCP - General 12/09/23 Joshua Martínez MD [address] [place] [address] Consulting Physician Radiation Oncology 09/19/24 Paradise Pacheco, RN CH-VASCULAR & INTERVENTIONAL RADIOLOGY Registered Nurse 11/21/24 11/21/24 documented as of this encounter
--- OUTSIDE RECORDS SUMMARY | 2024-11-24 20:56 | XMS_ITS | Encounter Summary ---
Author Organization Healthcare Address [address] [place] [address] Care Team Providers Care Antique Refinisher Name Role Phone Laurie Gutierrez MD Primary Care Provider [phone] Joshua Martínez MD Unavailable Paradise Pacheco RN Unavailable Unavailab le Encounter Details Date Type Department Care Team (Late st Contact Info) Description 11/15/2024 Orders Only External Location [address] [place] [address] Provider, External Social History Tobacco Use Types [...] any time in the past 12 m [facility], were you homeless or [...] any time in the past 12 m [facility], were you homeless or living in a jail (including now)? No 11/21/2024 CAGE ASSESSMENT Answer [...] first t laurie in the morning (EYE-MARINE DESIGN ENGINEER) to steady your nerves or to get rid of a hangover? 0 10/27/2024 CAGE Questionnaire Score 0 025 Utilities Answer Date Recorded In the past 12 months has e [employer], gas, oil, or water [employer] threatened to shut off services in your [...] Respiratory 800 [facility], 2nd [place] [address] 11/29/2024 11:00 AM EDT Office Visit Pav CC Head, Neck & Respiratory 800 [facility], 2nd [place] [address] Satnam Colvin MD 800 [facility] [address] [place] [address] 11/29/2024 12:30 PM EDT Appointment [facility] 1 [address] [place] [address] 11/30/2024 1:30 PM EDT Appointment [facility] 1 [address] [place] [address] 12/01/2024 2:00 PM EDT Appointment [facility] 1 [address] [place] [address] 12/06/2024 11:40 AM EDT Appointment [facility] CC Radiation 800 [facility]. [id number] [place] [address] Haven Blum, ELECTROGALVANIZING MACHINE OPERATOR 800 [facility] [address] [place] [address] 01/19/2025 9:30 AM EDT Appointment P[facility] S Radiology [address], 1st [place] [address] 01/19/2025 10:45 AM EDT Office Visit [place] [facility] [address], 1st [place] [address] Abhilash Bangura MD [address] [place] [address] 03/08/2025 1:00 PM EDT Office Visit [facility] [place] [facility] 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, DOOR FRAME BUILDER Panic 10/26/2024 10/31/2024 Assessment Noted Time PHQ-9 Depression Total Score: 0 09/01/19 3:26 PM EDT A fall risk assessment has been complete d for the patient 11/10/2024 2:43 PM EDT A Body Mass Index follow-up plan has been documented for the patient 11/08/2024 5:14 PM EDT documented as of this encounter Care Teams Antique Refinisher Relationship Specialty Start Date End Date Laurie Gutierrez MD [address] [place] [address] PCP - General 12/09/23 Joshua Martínez MD [address] [phone] Consulting Physician Radiation Oncology 09/19/24 Paradise Pacheco, RN CH-VASCULAR & INTERVENTIONAL RADIOLOGY Registered Nurse 11/21/24 11/21/24 documented as of this encounter
--- OUTSIDE RECORDS SUMMARY | 2024-11-24 20:56 | XMS_ITS | Encounter Summary ---
Author Organization Healthcare Address [address] [place] [address] Care Team Providers Care Counselor Marriage And Family Name Role Phone Laurie Gutierrez MD Primary Care Provider [phone] Joshua Martínez MD Unavailable Encounter Details Date Type Department Care Team (Late st Contact Info) Description 11/04/2024 Orders Only [facility] CC Radiation [address] [id number] [place] [address] Radiation Oncology, Physician, [facility] [place] [address] Social History Tobacco Use Types Packs/Day Years [...] any time in the past 12 m [facility], were you homeless or living [...] any time in the past 12 m [facility], were you homeless or living [...] drink first t laurie in the morning (EYE-COMMUNITY CULTURAL DEVELOPMENT OFFICER) to steady your nerves or to get [...] Pav CC Head, Neck & Respiratory [address] [address] 11/29/2024 11:00 AM EDT Office Visit [facility] Head, Neck & Respiratory [address] [address] Satnam Colvin MD 800 [facility] [address] [place] [address] 11/29/2024 12:30 PM EDT Appointment [facility] 1 [address] [place] [address] 11/30/2024 1:30 PM EDT Appointment [facility] 1 [address] [place] [address] 12/01/2024 2:00 PM EDT Appointment [facility] [address] [place] [address] 12/06/2024 11:40 AM EDT Appointment [facility] CC Radiation [address] [id number] [place] [address] Haven Blum, DRUG SAFETY PHYSICIAN [address] [place] [address] 01/19/2025 9:30 AM EDT Appointment [facility] S Radiology [address], 1st [place] [address] 01/19/2025 10:45 AM EDT Office Visit [place] [facility] [address], 1st [place] [address] Abhilash Bangura MD [address] [place] [address] 03/08/2025 1:00 PM EDT Office Visit [facility] [place] [facility] 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, SAMPLE SELECTOR Panic 10/26/2024 10/31/2024 Assessment Noted Time PHQ-9 Depression Total Score: 0 09/01/19 3:26 PM EDT A fall risk assessment has been complete d for the patient 10/06/2024 2:29 PM EDT A Body Mass Index follow-up plan has been documented for the patient 10/31/2024 4:09 PM EDT documented as of this encounter Care Teams Counselor Marriage And Family Relationship Specialty Start Date End Date Laurie Gutierrez MD [address] [place] [address] PCP - General 12/09/23 Joshua Martínez MD [address] [place] [address] Consulting Physician Radiation Oncology 09/19/24 documented as of this encounter
--- OUTSIDE RECORDS SUMMARY | 2024-11-24 20:56 | XMS_ITS | Encounter Summary ---
Author Organization Healthcare Address [address] [place] [address] Care Team Providers Care Sales Promotion Manager Name Role Phone aLurie Gutierrez MD Primary Care Provider Joshua Martínez [...] first t laurie in the morning (EYE-SUPERVISOR PAINT DEPARTMENT) to steady your nerves or to get rid of a hangover? 0 10/27/2024 CAGE Questionnaire Score 0 025 Utilities Answer Date Recorded In the past 12 months has [employer] electric, gas, oil, or water company threatened to shut off services in your home? No 10/26/2024 Comments No Sex and Gender Information Value Date Recorded Sex Assigned at Not on file Legal Sex Female 8:32 PM EDT Gender Identity Not on file Sexual Orientation Not on file documented as of this encounter Plan of Treatment Upcoming Encounters Date Type Department Care Team ([facility] Contact Info) Description 11/29/2024 10:30 AM EDT Clinical Support [facility] [address] [facility], 2nd [place] [address] 11/29/2024 11:00 AM EDT Office Visit [facility] [address] [facility], 2nd [place] [address] Satnam Colvin MD [address] [facility] Nuria Contehrickson [facility] [address] [place] [address] 11/29/2024 12:30 PM EDT Appointment [facility] 1 [address] [place] [address] 11/30/2024 1:30 PM EDT Appointment [facility] 1 [address] [place] [address] 12/01/2024 2:00 PM EDT Appointment [facility] [address] [place] [address] 12/06/2024 11:40 AM EDT Appointment [facility] CC Radiation [address] [id number] [place] [address] Haven Blum, INDEPENDENT DRIVER [address] [place] [address] 01/19/2025 9:30 AM EDT Appointment PAV S Radiology [address], 1st [place] [address] 01/19/2025 10:45 AM EDT Office Visit [place] [facility] [address], 1st [place] [address] Abhilash Bangura MD [address] [place] [address] 03/08/2025 1:00 PM EDT Office Visit [facility] [place] [facility] 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, FIELD SERVICE MANAGER Panic 10/26/2024 10/31/2024 Assessment Noted Time PHQ-9 Depression Total Score: 0 09/01/19 25 3:26 PM EDT A fall risk assessment has been complete d for the patient 10/06/2024 2:29 PM EDT A Body Mass Index follow-up plan has been documented for the patient 10/31/2024 4:09 PM EDT documented as of this encounter Care Teams Sales Promotion Manager Relationship Specialty Start Date End Date Laurie Gutierrez MD [address] [place] [id number] PCP - General 12/09/23 Joshua Martínez MD [address] [place], [place] [address] [place] [phone] Consulting Physician Radiation Oncology 09/19/24 documented as of this encounter
--- OUTSIDE RECORDS SUMMARY | 2024-11-24 20:56 | XMS_ITS | Encounter Summary ---
Author Organization Healthcare Address [address] [place] [address] Care Team Providers Care Wheat Inspector Name Role Phone Laurie Gutierrez MD Primary Care Provider [phone] Joshua Martínez MD Unavailable Paradise Pacheco RN Unavailable Unavailab le Encounter Details Date Type Department Care Team (Late st Contact Info) Description 11/15/2024 Orders Only External Location [address] [place] [address] Provider, External Social History Tobacco Use Types [...] any time in the past 12 m [facility], were you homeless or living in a [...] any time in the past 12 m [facility], were you homeless or living in a [facility] (including now)? No 11/21/2024 CAGE ASSESSMENT Answer [...] drink first t laurie in the morning (EYE-CAN CLOSING MACHINE TENDER) to steady your nerves or to get rid of a hangover? 0 10/27/2024 CAGE Questionnaire Score 0 025 Utilities Answer Date Recorded In the past 12 months has e [employer], gas, oil, or water [employer] threatened to shut off services in your [...] Pav [facility] Res[facility] 800 [facility], 2nd [place] [phone] 11/29/2024 11:00 AM EDT Office Visit Pav [facility] Res[facility] [address] [facility], [address]nd [place] [address] Satnam Colvin MD 800 [facility] [address] [place] [phone] 11/29/2024 12:30 PM EDT Appointment [facility] 1 [address] [place] [address] 11/30/2024 1:30 PM EDT Appointment [facility] 1 [address] [place] [address] 12/01/2024 2:00 PM EDT Appointment [facility] 1 [address] [place] [address] 12/06/2024 11:40 AM EDT Appointment [facility] CC Radiation [address] [facility]. [id number] [place] [phone] Haven Blum, FOOD BEVERAGE SUPERVISOR [address] [facility] [address] [place] [address] 01/19/2025 9:30 AM EDT Appointment [facility] S Radiology [address], 1st [place] [address] 01/19/2025 10:45 AM EDT Office Visit [place] [facility] [address], 1st [place] [address] Abhilash Bangura MD [address] [place] [address] 03/08/2025 1:00 PM EDT Office Visit [facility] [place] 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, BUSINESS DEVELOPMENT RECRUITER Panic 10/26/2024 10/31/2024 Assessment Noted Time PHQ-9 Depression Total Score: 0 09/01/19 3:26 PM EDT A fall risk assessment has been complete d for the patient 11/10/2024 2:43 PM EDT A Body Mass Index follow-up plan has been documented for the patient 11/08/2024 5:14 PM EDT documented as of this encounter Care Teams Wheat Inspector Relationship Specialty Start Date End Date Laurie Gutierrez MD [address] [place] [address] PCP - General 12/09/23 Joshua Martínez MD [address] [phone] Consulting Physician Radiation Oncology 09/19/24 Paradise Pacheco, RN [facility]ULAR [facility] INTERVENTIONAL RADIOLOGY Registered Nurse 11/21/24 11/21/24 documented as of this encounter
--- OUTSIDE RECORDS SUMMARY | 2024-11-24 20:57 | XMS_ITS | Encounter Summary ---
Author Organization Healthcare Address [address] [place] [address] Care Team Providers Care Crowning Hammer Operator Name Role Phone Laurie Gutierrez MD Primary Care Provider [phone] Joshua Martínez MD Unavailable Encounter Details Date [...] drink first t laurie in the morning (EYE-ANALYTICAL RESEARCH CHEMIST) to steady your nerves or to get rid of a hangover? 0 10/27/2024 CAGE Questionnaire Score 0 025 Utilities Answer Date Recorded In the past 12 months has [employer]), gas, oil, or water company threatened to [...] Department Care Team ([facility] Contact Info) Description 11/29/2024 10:30 AM EDT Clinical Support [facility] 800 [facility], [address]nd [place] [address] 11/29/2024 11:00 AM EDT Office Visit Pav [facility] Res[facility] [address] [facility], 2nd [place] [address] Satnam Colvin MD 800 [facility] Nuria Degroot [facility] [address] [place] [address] 11/29/2024 12:30 PM EDT Appointment [facility] 1 [address] [place] [address] 11/30/2024 1:30 PM EDT Appointment [facility] 1 [address] [place] [address] 12/01/2024 2:00 PM EDT Appointment [facility] 1 [address] [place] [address] 12/06/2024 11:40 AM EDT Appointment [facility] CC Radiation [id number] [place] [address] Haven Blum, MEMBERSHIP COUNSELOR [address] [facility] [address] [place] [address] 01/19/2025 9:30 AM EDT Appointment P[facility] S Radiology [address], 1st [place] [address] 01/19/2025 10:45 AM EDT Office Visit [place] [facility] [address], 1st [place] [address] Abhilash Bangura MD [address] [place] [address] 03/08/2025 1:00 PM EDT Office Visit [facility] [place] [facility] [address] 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, MUFFLER MECHANIC Panic 10/26/2024 10/31/2024 Assessment Noted Time PHQ-9 Depression Total Score: 0 09/01/19 25 3:26 PM EDT A fall risk assessment has been complete d for the patient 11/10/2024 2:43 PM EDT A Body Mass Index follow-up plan has been documented for the patient 11/08/2024 5:14 PM EDT documented as of this encounter Care Teams Crowning Hammer Operator Relationship Specialty Start Date End Date Laurie Gutierrez MD [address] [place] [id number] PCP - General 12/09/23 Joshua Martínez MD [address] [place] [address] [address] [place] [address] Consulting Physician Radiation Oncology 09/19/24 documented as of this encounter
--- OUTSIDE RECORDS SUMMARY | 2024-11-24 20:57 | XMS_ITS ---
Author Organization Healthcare Address [address] [place] [address] Care Team Providers Care Utilities Service Investigator Name Role Phone Laurie Gutierrez MD Primary Care Provider [phone] Joshua Martínez MD Unavailable Sabine Morales RESIDENCE MANAGER Unavailable Unavailable Active Problems Problem Noted Date Diagnosed Date Fall 11/16/2024 Assessment & Plan (11/16/2024 7:16 AM EDT): - Admit to SGT 6 - Tertiary 11/16 Concussion 11/16/2024 Assessment & Plan (11/16/2024 7:16 AM EDT): - Neurochecks q4 Anxiety 10/25/2024 Acute exacerbation of chronic obstructive airway s disease 10/25/2024 Immunocompromised state 10/25/2024 Incontinence 10/25/2024 Irritable bowel syndrome 10/25/2024 Neuropathy 10/25/2024 Other specified disorders of bladder 10/25/2024 Tobacco dependence 10/25/2024 Vertebrogenic low back pain 10/25/2024 Pneumonia of right upper lobe due to infectious organism 10/25/2024 Subdural hemorrhage 10/12/2024 Assessment & Plan (11/16/2024 7:16 AM EDT): - L parafalcine subdural hemorrhage at the vertex measuring up to 7 mm - Kcentra and Keppra given - Stable after 6hrs - Hold AC/AP through 7/16 - Nsgy following Other malaise 09/17/2024 Other sequelae of other nont raumatic intracranial hemorrhage 09/17/2024 Unspecified abnormalities of gait and mobility 0 09/17/2024 Extensive stage primary small cell carcinoma of lung 09/09/2024 Metastasis to brain 09/09/2024 Assessment & Plan (11/01/2024 11:48 AM EDT): Morbid (severe) obesity due to excess calories 0 09/09/2024 Cerebral edema 09/09/2024 Functional urinary incontinence 09/08/2024 Other chronic pain 09/07/2024 Anemia 09/06/2024 Assessment & Plan (11/16/2024 7:16 AM EDT): - Likely chronic and multifactorial - Hgb 7.2 on arrival - Monitor and transfuse if <7 or symptomatic Other abnormalities of gait and mobility 025 Weakness 09/06/2024 Paroxysmal atrial fibrillation 09/06/2024 Anesthesia of skin 09/03/2024 Other symptoms and signs inv olving the musculoskeletal system 09/03/2024 Obesity (BMI 35.0-39.9 without comorbidity) 08/16 Morbid obesity with BMI of 40.0-44.9, adult 08/16 Assessment & Plan (11/16/2024 7:16 AM EDT): - Can complicate recovery Right leg weakness 09/01/2024 Atelectasis 09/01/2024 Atherosclerosis of aorta 09/01/2024 Compression of vein 09/01/2024 Diverticulosis of intestine, part unspecified, without perforation or abscess without bleeding 09/01/2024 Localized swelling, mass and lump, head 09/02/19 Cyst of kidney, acquired 09/01/2024 Other disorders of lung 09/01/2024 Brain mass 08/31/2024 Assessment & Plan (11/16/2024 7:16 AM EDT): - S/p L frontal craniotomy for metastatic brain lesion resection on 09/05/24 - Nsgy following 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 08/31/2024 A-fib 08/31/2024 Assessment & Plan (11/16/2024 7:16 AM EDT): - Holding Xarelto in a setting of head bleed until 11/16 - Recommend discussing risk vs benefit with a PCP prior to restarting Spinal stenosis, lumbar matias on without neurogenic [...] upper respiratory infection, unspecified 1 Glycosuria 04/20/2024 UTI (urinary tract infection) 04/20/2024 Assessment & Plan (11/16/2024 7:16 AM EDT): - AEB UA collected on arrival - Macrobid PO through 11/21 Plantar fascial fibromatosis 04/11/2024 Short Achilles tendon (acquired), right ankle Acute frontal sinusitis, unspecified 03/28/2024 Unspecified acute conjunctivitis, right eye 03/18 Candidiasis, unspecified 03/21/2024 Vitamin D deficiency 03/21/2024 Pain in right toe(s) 02/25/2024 Tinea unguium 02/25/2024 Pain in right foot 02/05/2024 Abnormal uterine bleeding 01/01/2024 Type 2 diabetes mellitus wit h diabetic neuropathy, unspecified 11/20/2023 Palpitations 11/17/2023 Dehydration 11/14/2023 Dizziness and giddiness 11/14/2023 Muscle weakness (generalized) 11/14/2023 Bacteremia 10/28/2023 Chronic respiratory failure with hypoxia 024 Anemia due to chemotherapy 10/27/2023 Diverticular disease of colon 10/26/2023 Acid [...] single renal cyst 05/31/2015 Hyperglycemia due to diabetes mellitus 6 Assessment & Plan (11/16/2024 7:16 AM EDT): - CC2 diet while inpatient Type 2 diabetes mellitus without complications 0 [...] 2, Cycle 3 - Planned for 11/30/2024) Rgsygxqcbfau-Muzivhkprrzti-t qjs (Tecentriq Hybreza) [id number] MG-UT/15ML solutionCARBOplatin (Paraplatin)CARBOplatin (Paraplatin) IVPB (by AUC: GOG-COCKCROFT GAULT)Etoposide (Toposar)etoposide (Vepesid) IVPB Atezolizumab-Hyaluronidase- tqjs (Tecentriq Hybreza) [id number] MG-UT/15ML injection solution 1,875 mgCARBOplatin (Paraplatin) 620 [...] Problem Noted Date Diagnosed Date Resolved Date Atrial fibrillation with rap id ventricular response 11/19/2024 11/24/2024 SAH (subarachnoid hemorrhage) 11/16/2024 11/16/2024 Neutropenic fever 10/12/2024 10/18/2024 Sepsis without acute organ dysfunction 10/12/2024 10/18/2024 Subarachnoid hemorrhage 10/12/2024 06/0 07/2024 Acute cystitis without hematuria 12/07/2023 11/24/2024 Atrial flutter with rapid ve ntricular response 11/19/2023 10/18/2024 Abdominal bloating 04/03/2022
--- OUTSIDE RECORDS SUMMARY | 2024-11-24 20:57 | XMS_ITS | Encounter Summary ---
Author Organization Healthcare Address [address] [place] [address] Care Team Providers Care Rattling Machine Tender Name Role Phone Laurie Gutierrez MD [...] drink first t laurie in the morning (EYE-BREWER HELPER) to steady your nerves or to get rid of a hangover? 0 10/27/2024 CAGE Questionnaire Score 0 025 Utilities Answer Date Recorded In the past 12 months has [employer], gas, oil, or water company threatened to shut off services in your home? No 10/26/2024 Comments No Sex and Gender Information Value Date Recorded Sex Assigned at Not on file Legal Sex Female 8:32 PM EDT Gender Identity Not on file Sexual Orientation Not on file documented as of this encounter Plan of Treatment Upcoming Encounters Date Type Department Care Team ([facility] Contact Info) Description 11/29/2024 10:30 AM EDT Clinical Support Pav [facility] Neck [facility] Respiratory [address] [facility], 2nd [place] [address] 11/29/2024 11:00 AM EDT Office Visit Pav [facility] Head[facility] Neck [facility] Respiratory [address] [facility], 2nd [place] [address] Satnam Colvin MD 800 [facility] Nuria Degroot [facility] [address] [place] [address] 11/29/2024 12:30 PM EDT Appointment [facility] 1 [address] [place] [address] 11/30/2024 1:30 PM EDT Appointment [facility] 1 [address] [place] [address] 12/01/2024 2:00 PM EDT Appointment [facility] 1 [address] [place] [address] 12/06/2024 11:40 AM EDT Appointment [facility] CC Radiation [id number] [place] [address] Haven Blum, PODIATRIC MEDICINE PROFESSOR [address] [facility] [address] [place] [address] 01/19/2025 9:30 AM EDT Appointment P[facility] S Radiology [address], [address]st [place] [address] 01/19/2025 10:45 AM EDT Office Visit [place] [facility] [address], [address] [place] [address] Abhilash Bangura MD [address] [place] [address] 03/08/2025 1:00 PM EDT Office Visit [facility] [place] [facility] [address] 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 Panic 10/26/2024 10/31/2024 Assessment Noted Time PHQ-9 Depression Total Score: 0 09/01/19 25 3:26 PM EDT A fall risk assessment has been complete d for the patient 11/10/2024 2:43 PM EDT A Body Mass Index follow-up plan has been documented for the patient 11/08/2024 5:14 PM EDT documented as of this encounter Care Teams Rattling Machine Tender Relationship Specialty Start Date End Date Laurie Gutierrez MD [address] [place] [address] PCP - General 12/09/23 Joshua Martínez MD [address] [place] [address] [address] [place] [address] Consulting Physician Radiation Oncology 09/19/24 documented as of this encounter
--- OUTSIDE RECORDS SUMMARY | 2024-11-24 20:57 | XMS_ITS | Patient Health Record ---
Author Organization [facility] [place] Address [address] [place] [address] [place] [address] Care Team Providers Care [employer]cher [employer] Name Role Phone TRAY CARRERA Unavailable [phone] Tray Carrera MD Unavailable Unavailable SATYA GOTTI Unavailable [phone] REAL SAVAGE Unavailable [phone] Yamilet Coleman Unavailable [phone] Justina Beasley Unavailable [phone] Catherine Vidal Unavailable [phone] Allergies Allergen (clinical drug ingredient) Drug/Non Drug Allergy documented on EMR Reaction Allergy Type Onset Date Status Keflex Unknown Drug Allergy Active lisinopril Unknown Drug Allergy Active meloxicam meloxicam Unknown Drug Allergy Active Results Component Value Reference Range Notes Urinalysis, Routine Reviewed date:03/21/2024 12:29:01 PM Interpretation: Performing Lab: Notes/Report: Urine-Color YELLOW Appearance DARK Specific Hinckley 1.015 pH 6.0 Glucose 3+ Protein NEG Occult Blood NEG Bilirubin NEG Urobilinogen,Semi-Qn NEG Nitrite, Urine NEG Ketones NEG WBC Esterase NEG X ray : Foot, right 3v Reviewed date:02/01/2024 11:17:29 AM Interpretation: Performing Lab: Notes/Report: Microalb/Creat Ratio, Randm Ur Reviewed date:07/11/2024 08:42:54 AM Interpretation: Performing Lab:[facility] [place], [address] [facility], [place], Phone - [phone], Director - Gabe Notes/Report: Albumin, Urine <3.0 Not Estab. ug/mL Alb/Creat Ratio <5 0-29 mg/g creat Normal: 0 - 29 Moderately increased: 30 - 300 Severely increased: >300 Electrocardiogram (EKG) Reviewed date:08/14/2024 05:14:30 PM Interpretation: Performing Lab: Notes/Report: MAMMOGRAM, SCREENING Reviewed date:01/04/2024 10:35:30 AM Interpretation:appt is 01/14 @ 10 Performing Lab: Notes/Report: appt is 01/14 @ 10 Urinalysis, Complete Reviewed date:09/26/2024 10:10:03 AM Interpretation: Performing Lab: Notes/Report: Specific Hinckley 1.015 pH 6 Urine-Color YELLOW Appearance CLEAR WBC Esterase NEG Protein NEG Glucose 3+ Ketones NEG Occult Blood NEG Bilirubin NEG Urobilinogen,Semi-Qn 3.5 Nitrite, Urine NEG Comp. Metabolic Panel (14) Reviewed date:07/11/2024 08:43:11 AM Interpretation: Performing Lab:[facility] [place], [address] [facility], Phone - [phone], Director - Gabe Notes/Report: Glucose 139 70-99 [...] 0-40 IU/L ALT (SGPT) 14 0-32 IU/L Lipid Panel With LDL/HDL Rat io Reviewed date:07/11/2024 08:43:28 AM Interpretation: Performing Lab:[facility] [place], [address] [facility], Phone - [phone], Director - Gabe Notes/Report: Cholesterol, Total 137 100-199 mg/dL Triglycerides 98 0-149 mg/dL HDL Cholesterol 51 >39 mg/dL VLDL Cholesterol Luis 18 5-40 mg/dL LDL Chol Calc ([facility]) 68 0-99 mg/dL LDL/HDL Ratio 1.3 0.0-3.2 ratio LDL/HDL Ratio Men Women 1/2 Avg.Risk 1.0 1.5 Avg.Risk 3.6 3.2 2X Avg.Risk 6.2 5.0 3X Avg.Risk 8.0 6.1 Vitamin D, 25-Hydroxy Reviewed date:07/11/2024 08:43:34 AM Interpretation: Performing Lab:[facility] [place], [address] [facility], Phone - [phone], Director - PhDPati Notes/Report: Vitamin D, 25-Hydroxy 31.8 30.0-100.0 ng/mL Vitamin D deficiency has been defined by the [place] of [employer] and an Endocrine Society practice guideline as a level of serum 25-OH vitamin D less than 20 ng/mL (1,2). The Endocrine Society went on to further define vitamin D insufficiency as a level between 21 and 29 ng/mL (2). 1. IOM ([place] [employer]). 2010. Dietary reference intakes for calcium and D. Prabhakar [place]: The National Academies Press. 2. Lawrence MF, Yusuf NC, Pablito ONEAL, et al. Evaluation, treatment, and prevention of vitamin D deficiency: an Endocrine Society clinical practice guideline. JCEM. 2010; 96(7):1911-30. CBC With Differential/Platel et Reviewed date:07/11/2024 08:43:54 AM Interpretation: Performing Lab:[facility] [place], [address] [facility], [place], Phone - [phone], Director - PhDRicmelissa Notes/Report: WBC 7.5 3.4-10.8 x10E3/uL RBC 3.81 [...] TSH Reviewed date:07/11/2024 08:43:39 AM Interpretation: Performing Lab:[facility], Phone - [phone], Director - [facility] Notes/Report: TSH 2.140 0.450-4.500 uIU/mL Urinalysis, Complete Reviewed date:07/11/2024 08:44:12 AM Interpretation: Performing Lab:[facility] [place], Phone - [phone], Director - [facility] Notes/Report: Specific Hinckley >=1.030 1.005-1.030 pH 5.5 5.0-7.5 Urine-Color Yellow [...] (Random) Reviewed date:07/11/2024 08:44:02 AM Interpretation: Performing Lab:[facility] [place], [facility], Phone - [phone], Director - [facility] Notes/Report: Creatinine, Urine 58.6 Not Estab. mg/dL Protein,Total,Urine 12.6 Not Estab. mg/dL Protein/Creat Ratio 215 0-200 mg/g creat Magnesium, Serum Reviewed date:07/11/2024 08:43:44 AM Interpretation: Performing Lab:[facility], [address] [place] [address], Phone - [phone], Director - [facility] Notes/Report: Magnesium 1.6 1.6-2.3 mg/dL Hemoglobin A1c Reviewed date:07/11/2024 08:43:16 AM Interpretation: Performing Lab:[facility], Phone - [phone], Director - [facility] Notes/Report: Hemoglobin A1c 6.6 4.8-5.6 % . Prediabetes: 5.7 - 6.4 Diabetes: >6.4 Glycemic control for adults with diabetes: <7.0 Vitamin B12 and Folate Reviewed date:07/11/2024 08:42:58 AM Interpretation: Performing Lab:[facility] [address], Phone - [phone], Director - [facility] Notes/Report: Vitamin B12 [phone] pg/mL Folate (Folic Acid), Serum 9.0 >3.0 ng/mL A serum folate concentration of less than 3.1 ng/mL is considered to represent clinical deficiency. Comp. Metabolic Panel (14) Reviewed date:02/26/2024 10:41:06 AM Interpretation: Performing Lab:[facility] [address], Phone - [phone], Director - [facility] Notes/Report: Glucose 108 70-99 mg/dL BUN 18 [...] io Reviewed date:02/26/2024 10:41:23 AM Interpretation: Performing Lab:[facility] [place], [address] [facility], Phone - [phone], Director - [facility] Notes/Report: Cholesterol, Total 134 100-199 mg/dL Triglycerides 71 0-149 mg/dL HDL Cholesterol 56 >39 mg/dL VLDL Cholesterol Luis 14 5-40 mg/dL LDL Chol Calc (NIH) 64 0-99 mg/dL LDL/HDL Ratio 1.1 0.0-3.2 ratio LDL/HDL Ratio Men Women 1/2 Avg.Risk 1.0 1.5 Avg.Risk 3.6 3.2 2X Avg.Risk 6.2 5.0 3X Avg.Risk 8.0 6.1 Vitamin D, 25-Hydroxy Reviewed date:02/26/2024 10:41:28 AM Interpretation: Performing Lab:[facility] [place], [address] [facility], Phone - [phone], Director - [facility] Notes/Report: Vitamin D, 25-Hydroxy 33.8 30.0-100.0 ng/mL Vitamin D deficiency has been defined by the [place] [employer] and an Endocrine Society practice guideline as a level of serum 25-OH vitamin D less than 20 ng/mL (1,2). The Endocrine Society went on to further define vitamin D insufficiency as a level between 21 and 29 ng/mL (2). 1. IOM ([place] [employer]). 2010. Dietary reference intakes for calcium and D. Prabhakar [place]: The National Academies Press. 2. Lawrence MF, Yusuf MULLINS, Pablito ONEAL, et al. Evaluation, treatment, and prevention of vitamin D deficiency: an Endocrine Society clinical practice guideline. JCEM. 2010; 96(7):1911-30. CBC With Differential/Platel et Reviewed date:02/26/2024 10:42:12 AM Interpretation: Performing Lab:[facility], [address] [facility], Phone - [phone], Director - [facility] Notes/Report: WBC 7.5 3.4-10.8 x10E3/uL RBC 3.37 [...] TSH Reviewed date:02/26/2024 10:41:37 AM Interpretation: Performing Lab:[facility] [place], [address] [facility], Phone - [phone], Director - [facility] Notes/Report: TSH 2.980 0.450-4.500 uIU/mL Urinalysis, Complete Reviewed date:02/26/2024 10:42:26 AM Interpretation: Performing Lab:[facility], [address] [place] [address], Phone - [phone], Director - [facility] Notes/Report: Specific Hinckley 1.028 1.005-1.030 pH 6.5 5.0-7.5 Urine-Color Yellow [...] (Random) Reviewed date:02/26/2024 10:42:18 AM Interpretation: Performing Lab:[facility], Phone - [phone], Director - [facility] Notes/Report: Creatinine, Urine 67.9 Not Estab. mg/dL Protein,Total,Urine 9.1 Not Estab. mg/dL Protein/Creat Ratio 134 0-200 mg/g creat Magnesium, Serum Reviewed date:02/26/2024 10:41:42 AM Interpretation: Performing Lab:[facility], Phone - [phone], Director - [facility] Notes/Report: Magnesium 1.8 1.6-2.3 mg/dL Vitamin B12 Reviewed date:02/26/2024 10:41:32 AM Interpretation: Performing Lab:[facility], Phone - [phone], Director - [facility] Notes/Report: Vitamin B12 6182 259-8026 pg/mL Hemoglobin A1c Reviewed date:02/26/2024 10:41:10 AM Interpretation: Performing Lab:[facility], Phone - [phone], Director - [facility] Notes/Report: Hemoglobin A1c 6.3 4.8-5.6 % . Prediabetes: 5.7 - 6.4 Diabetes: >6.4 Glycemic control for adults with diabetes: <7.0 Uric Acid, Serum Reviewed date:02/26/2024 10:41:18 AM Interpretation: Performing Lab:[facility], Phone - [phone], Director - [facility] Notes/Report: Uric Acid 5.0 3.0-7.2 mg/dL Therapeutic ta rget for gout patients: <6.0 MAMMOGRAM, SCREENING Reviewed date:01/06/2024 02:10:11 PM Interpretation:appt is 01/14 @ 10am Performing Lab: Notes/Report: appt is 01/14 @ 10am Urinalysis, Routine Reviewed date:01/04/2024 08:41:20 AM Interpretation: Performing Lab: Notes/Report: Urine-Color YELLOW Appearance LIGHT Specific Hinckley 1.015 pH 6.0 Glucose 3+ Protein NEG Occult Blood NEG Bilirubin NEG Urobilinogen,Semi-Qn 3.5 Nitrite, Urine NEG Ketones NEG WBC Esterase NEG Urinalysis, Routine Reviewed date:12/07/2023 04:42:31 PM Interpretation: Performing Lab: Notes/Report: Urine-Color YELLOW Appearance DARK Specific Hinckley 1.000 pH 6.5 Glucose 3+ Protein +- 15MG Occult Blood +- 10ERY Bilirubin NEG Urobilinogen,Semi-Qn - Nitrite, Urine NEG Ketones NEG WBC Esterase 2+ Reason For Referral Reason right foot pain Diagnosis 1 Foot pain, right (M7 9.671) Referral Organization [facility] Referring Provider First Name Yamilet Referring Provider Last Name Jared Referring Provider Speciality Physician Air Tester Referred Provider FELIPA CERVANTES Referred Provider Specialty Podiatry General Notes JANNETH MORALES 02/02 01:40:42 PM > FAXEDCARMEN DEBBIE 02/05/2024 09:42:21 AM > PER FAX PT HAS BEEN NOTIFIED. Referral Priority Urgent Referral Appointment Date 02/25/2024 Reason Samson Best M.D. Orthopaedic & Spine Surgery at [facility] orthopedic Diagnosis 1 Low back pain, unspe cified (M54.50) Referral Organization [facility] [place] Referring Provider First Name Justina Referring Provider Last Name Ramos Referring Provider Speciality Nurse Prac titioner Referred Provider deepa gillette Referred Provider Specialty Orthopedic S urgery General Notes ZHANGGLEJANNETH 08/26 10:34:29 AM > FAXED, ANAYELI MORALESBIE 09/13/2024 04:05:27 PM > PT NOTIFIED BY ORTHO Referral Priority Urgent Referral Appointment Date 09/14/2024 Reason PT/OT and home healt h , starting chemo Diagnosis 1 Malignant neoplasm o f unspecified part of unspecified bronchus or lung (C34.90) Referral Organization [facility] Referring Provider First Name Yamilet Referring Provider Last Name Jared Referring Provider Speciality Physician Air Tester Referred Provider Home [facility] 2, Lula baez Referred Provider Specialty Other Medica l Care General Notes TINGLEANAYELIJANNETH 10/04 12:09:51 PM > FAXED Referral Priority Urgent Reason home health, PT, OT Diagnosis 1 Pneumonia, unspecifi ed organism (J18.9) Referral Organization [facility] Referring Provider First Name Yamilet Referring Provider Last Name Jared Referring Provider Speciality Physician Air Tester Referred Provider [facility] 2, Lula baez Referred Provider Specialty Other Medica l Care General Notes TINGLEANAYELIJANNETH 10/28 01:52:00 PM > FAXED Referral Priority Routine [facility] Diagnosis 1 Cellulitis of left l ower extremity (L03.116) Referral Organization [facility] Referring Provider First Name REAL Referring Provider Last Name JANETTE Referring Provider Speciality Nurse Solo dubois Referred Provider Specialty Other Medica l Care Referral Priority Routine Medications Medication SIG (Take, Route, Frequency, Duration) Notes Start Date End Date Status Stephanie Aerosphere 160-9-4.8 MCG/ACT INHALE 2 PUFFS 2 TIMES EACH DAY for 30 Active Lipitor 40 MG 1 tablet Orally Once a day for 90 days Active metFORMIN HCl 1000 MG 1 tablet with meal s Orally Twice a day for 30 days Active Accu-Chek Softclix Lancets - USE TO TEST BLOOD SUGAR 3 TIMES EACH DAY for 30 Active Pantoprazole Sodium 40 mg TAKE 1 TABLET 1 TIME EACH DAY for 30 Active Alcohol Prep Pads 70 % as directed for 3 0 days Active Montelukast Sodium 10 MG 1 tablet Orally Once a day for 30 days Active Carvedilol 25 MG 1 tablet Orally Twic e a day for 30 days Active hydrOXYzine HCl 25 MG 1 tablet as needed Orally three times a day for 30 days Active Xarelto 20 MG 1 tablet with food Orally Once a day for 30 days Not-Taking Cyanocobalamin ER 1000 MCG 1 tablet Orally Once a day 11/24/2024 Active Atorvastatin Calcium 40 MG 1 tablet Orally Once a day 11/24/2024 Active Protonix 40 MG 1 tablet Orally Once a day for 90 days Active Dexcom G6 Returns Processor - as directed 02/12/2024 Active Gabapentin 600 MG 1 capsule Orally 4 times a day for 28 days oncology 12/07/2023 Active dexAMETHasone 2 MG 1 tablet Orally twic e a day Not-Taking Vitamin D-[address] 25 MCG (1000 UT) 1 tablet Orally Once a day Active Benzonatate 100 MG 1 capsule as needed Orally Three times a day for 15 days Not-Taking Vitamin B-12 ER 1000 MCG 1 tablet Orally Once a day for 90 days Active FreeStyle Lite Test - as directed In Vit ro daily for 30 days Active Insulin Lispro 100 UNIT/ML inject 15 units with meals Active Jardiance 25 mg TAKE 1 TABLET 1 TIME EACH DAY for 90 days Not-Taking Fluconazole 200 MG 1 tablet Orally russel y for 7 days 11/24/2024 Active Ofloxacin 0.3 % 5 drops into affecte d ear right ear Otic Once a day for 7 days 11/24/2024 Active Bactrim DS 800-160 MG 1 tablet Orally tw ice a day for 10 days 11/24/2024 Active Compazine Active Dexcom G6 Transmitter - as directed for 90 days Active Ondansetron 8 MG 1 tablet on the tongue and allow to dissolve as needed Orally every 8 hours Active Ciclopirox 8 % 1 application Externally Once a day for 30 days 07/08/2024 Not-Taking Triamterene-HCTZ 37.5-25 MG 1 tablet in the morning Orally Once a day for 90 days Not-Taking Acetaminophen 325 MG 2 tablets Orally every 6 hrs 11/24/2024 Active Cetirizine HCl 10 mg TAKE 1 TABLET 1 AURELIA E EACH DAY daily for 90 days Active rOPINIRole HCl 1 mg 1 tablet orally twic e a day for 30 day(s) 08/23/2024 Not-Taking Benzonatate 100 MG 1 capsule as needed Orally Three times a day for 30 days 07/08/2024 Active Azithromycin 250 MG take 2 tablets the first day then 1 daily Orally daily for 5 days 10/21/2024 Not-Taking Januvia 50 MG 1 tablet Orally Once a day for 30 days Active Calcium Carbonate Ac tive FLUoxetine HCl 40 mg take 1 tablet oral once aday for 90 days Active Calcium 600/Vitamin D 600-10 MG-MCG 1 tablet with a meal Orally Once a day for 30 days Active Magnesium Oxide 400 MG 1 tablet with citlali d Orally twice a day 10/20/2024 Active Dexcom G7 Returns Processor - as directed 09/26/2024 Active Insulin Glargine-yfgn 100 UNIT/ML inject 20 units under the skin Subcutaneous nightly Active Dexcom G7 Sensor - as directed 09/26/2024 Active Nystatin 610539 UNIT/ML swish and swallo w 5mL Mouth/Throat Four times a day for 39 doses 10/20/2024 Active tiZANidine HCl 2 MG 1 tablet at bedtime as needed Orally Once a day for 10 days 08/23/2024 Active Melatonin Active Ferrous Sulfate 325 (65 Fe) MG 1 tablet Orally once a day for 30 days 08/23/2024 Active Immunizations Vaccine Route Administration Date Status [...] Hyperglycemia due to type 2 diabetes mellitus (927015039115457) Type 2 diabetes mellitus with hyperglycemia (E11.65) 016 Active confirmed Ricky-Bi n Problem Type II diabetes mellitus without complication (158472526) Type 2 diabetes mellitus without complications (E11.9) Active confirmed Ricky-Bi n Problem Mixed hyperlipidemia (974582341) Mixed hyperlipidemia (E78.2) Active confirmed Ricky-Bi n Problem Essential hypertension (14622154) Essential (primary) hypertension (I10) Active confirmed Ricky-Bi n Problem Congenital single renal cyst (6353874618327) Congenital single renal cyst (Q61.01) 016 Active confirmed Ricky-Bi n Problem Malignant tumor of lung (163061885) Malignant neoplasm of unspecified part of unspecified bronchus or lung (C34.90) Active confirmed Problem Anemia (169916145) Anemia, unspe cified (D64.9) Active confirmed Problem Hypomagnesemia (697164476) Hypomagnesemia (E83.42) Active confirmed Problem Disorder of urinary bladder (30364525) Other specified disorders of bladder (N32.89) Active confirmed Problem Abnormal uterine bleeding (59697530815703) Abnormal uterine and vaginal bleeding, unspecified (N93.9) Active confirmed Problem Congenital renal cyst (865549507177326) Congenital multiple renal cysts (Q61.02) Active confirmed Problem Nausea (894070710) Nausea (R11.0) Active confir med Problem Body mass index 40+ - severely obese (623350594) Body mass index (BMI) 45.0-49.9, adult (Z68.42) Active confirmed Problem Vitamin D deficiency (25474804) Vitamin D deficiency (E55.9) Active confirmed Problem Neuropathy (106016400) Neuropathy (G62.9) Active confirmed Problem Anxiety (17013166) Anxiety (F41.9) Active confi rmed Problem Chronic kidney disease stage 2 (700605228) Chronic kidney disease (CKD), stage II (mild) (N18.2) Active confirmed Problem Gastroesophageal reflux disease without esophagitis (728900984) Gastroesophageal reflux disease without esophagitis (K21.9) Active confirmed Problem Allergic rhinitis (26085339) Allergic rhinitis (J30.9) Active confirmed Problem Allergic rhinitis (10194112) Acute allergic rhinitis, unspecified seasonality, unspecified trigger (J30.9) Active confirmed Problem Restless legs (69719564) Restless leg (G25.81) Active confirmed Problem Patient immunocompromised (202923550) Immunocompromised patient (D84.9) Active confirmed Problem Diabetes mellitus type 2 (03695201) Diabetes mellitus type 2, uncontrolled (E11.65) Active confirmed Problem Incontinence (06297946) Incontinence in female (R32) Active confirmed Problem Acute exacerbation of chronic obstructive airways disease (387179743) COPD exacerbation (J44.1) Active confirmed Problem Chronic obstructive lung disease (95323582) COPD without exacerbation (J44.9) Active confirmed Problem Irritable bowel syndrome (96130599) Irritable bowel syndrome, unspecified type (K58.9) Active confirmed Problem Tobacco dependence (11363638) Tobacco dependence (F17.200) Active confirmed Problem Vertebrogenic low back pain (245316814290906461 ) Vertebrogenic low back pain (M54.51) Active confirmed Vital Signs Heart Rate 102 /min 11/24/2024 Temperature 98.7 degrees Fahrenheit 11/24/2024 Respiratory Rate 20 /min 11/24/2024 Oximetry 96 % 11/24/2024 Blood pressure diastolic 88 mm Hg 11/24/2024 Height 67 in 11/24/2024 Blood pressure systolic 130 mm Hg 11/24/2024 Weight 242 lbs 08/23/2024 BMI 37.9 kg/m2 08/23/2024 Encounters Encounter Location Date Provider Diagnosis [facility] [place] [address] [place] [address] 12/07/2023 Yamilet Coleman Dysuria R30.0 ; Alee min D deficiency E55.9 ; Gastroesophageal reflux disease without esophagitis K21.9 ; Anxiety F41.9 ; Essential (primary) hypertension I10 ; Acute cystitis without hematuria N30.00 ; Type 2 diabetes mellitus with hyperglycemia E11.65 ; Neuropathy G62.9 and Bronchitis J40 [facility] [place] [address] 01/01/2024 Yamilet Berry Dysuria R30.0 ; Abno rmal uterine and vaginal bleeding, unspecified N93.9 ; Vitamin D deficiency E55.9 ; Gastroesophageal reflux disease without esophagitis K21.9 ; Anxiety F41.9 ; Essential (primary) hypertension I10 ; Neuropathy G62.9 ; Screening for breast cancer Z12.31 and Type 2 diabetes mellitus with hyperglycemia E11.65 [facility] [place] [address] 02/01/2024 Yamilet Coleman Foot pain, right M79 .671 and Encounter for immunization Z23 [facility] [place] [address] 02/05/2024 Yamilet Berry Foot pain, right M79 .671 [facility] [place] [address] 02/25/2024 Yamileteliot Coleman Annual physical exam Z00.00 ; Type [...] G62.9 and Vitamin D deficiency E55.9 [facility] [place] [address] 03/21/2024 Yamilet Coleman COVID-19 U07.1 ; Dys uria R30.0 ; Yeast infection B37.9 ; Vitamin D deficiency E55.9 ; Gastroesophageal reflux disease without esophagitis K21.9 ; Type 2 diabetes mellitus with hyperglycemia E11.65 and COPD without exacerbation J44.9 [facility] [place] [address] 03/28/2024 Yamilet Coleman Acute frontal sinusi tis, unspecified J01.10 and Acute bacterial conjunctivitis of right eye H10.31 [facility] [place] [address] 04/27/2024 Yamilet Coleman Type 2 diabetes mo itus with hyperglycemia E11.65 ; COPD without exacerbation J44.9 ; Congenital multiple renal cysts Q61.02 ; Gastroesophageal reflux disease without esophagitis K21.9 ; Neuropathy G62.9 ; Malignant neoplasm of unspecified part of unspecified bronchus or lung C34.90 ; Mixed hyperlipidemia E78.2 ; Allergic rhinitis J30.9 and Vitamin D deficiency E55.9 [facility] [place] [address] 05/16/2024 Yamilet Coleman Type 2 diabetes mo itus [...] type R53.83 [facility] [address] [place] [address] 07/08/2024 Yamileteliot Coleman Type 2 diabetes mo itus [...] B35.1 and Fatigue, unspecified type R53.83 [facility] [place] [address] 08/05/2024 Catherine Vidal Acute cough R05.1 ; Pneumonia, unspecified organism J18.9 ; COPD without exacerbation J44.9 and Malignant neoplasm of unspecified part of unspecified bronchus or lung C34.90 [facility] [place] [address] 08/12/2024 Catherine Vidal Chest pain at rest R 07.9 ; Essential (primary) hypertension I10 ; COPD without exacerbation J44.9 and Chronic kidney disease (CKD), stage II (mild) N18.2 [facility] [place] [address] 08/23/2024 Justina Ramos Low back pain, unspecified M54.50 ; Restless leg G25.81 and Anemia, unspecified D64.9 [facility] [place] [address] 09/26/2024 Yamilet Coleman Type 2 diabetes mo itus [...] (mild) N18.2 [facility] [address] [place] [address] 09/29/2024 Yamilet Coleman Pneumonia, unspecifi ed organism J18.9 ; Malignant neoplasm of unspecified part of unspecified bronchus or lung C34.90 ; Acute cough R05.1 ; Weakness generalized R53.1 ; COPD without exacerbation J44.9 and Anxiety F41.9 [facility] [address] [place] [address] 10/21/2024 Yamilet Coleman Pneumonia, unspecifi ed organism J18.9 ; Malignant neoplasm of unspecified part of unspecified bronchus or lung C34.90 ; Essential (primary) hypertension I10 ; Acute cough R05.1 ; Weakness generalized R53.1 ; COPD without exacerbation J44.9 and Anxiety F41.9 [facility] [address] [place] [address] 11/24/2024 REAL PENGEY Cellulitis of left l ower extremity L03.116 ; Yeast infection B37.9 ; Type 2 diabetes mellitus with hyperglycemia E11.65 ; Cellulitis of right external ear H60.11 and Immunocompromised patient D84.9 [facility] [place] [address] 11/30/2023 RERYANNE CARRERA [facility] [address] [place] [address] 11/30/2023 Yamilet Berry [facility] [address] [place] [address] 11/30/2023 SATYA GOTTI [facility] [address] [place] [address] 11/30/2023 SATYA GOTTI [facility] [place] [address] 12/07/2023 SATYA GOTTI Neuropathy G62.9 [facility] [place] [address] 12/08/2023 Yamilet Coleman [facility] [address] [place] [address] 12/22/2023 Yamilet Coleman Other screening mammogram Z12.31 [facility] [address] [place] [address] 02/03/2024 Yamilet Jared Anxiety F41.9 ; Neuropathy G62.9 and Type 2 diabetes mellitus with hyperglycemia E11.65 [facility] [address] [place] [address] 02/11/2024 Yamilet Berry [facility] [address] [place] [address] 02/12/2024 Yamilet Coleman Type 2 diabetes mo itus with hyperglycemia E11.65 [facility] [place] [address], [place] [id number] 02/16/2024 TRAY CARRERA [facility] [address] [place] [address] 03/04/2024 TRAY CARRERA Anxiety F41.9 [facility] [address] [place] [address] 03/21/2024 Yamilet Coleman [facility] [address] [place] [address] 03/21/2024 Yamilet Coleman [facility] [address] [place] [address] 03/21/2024 Yamilet Coleman [facility] [address] [place] [address] 04/05/2024 Yamilet Coleman Gastroesophageal ref lux disease without esophagitis K21.9 and COPD without exacerbation J44.9 [facility] [address] [place] [address] 05/06/2024 TRAY CARRERA Type 2 diabetes mo itus with hyperglycemia E11.65 [facility] [place] [address], [place] [id number] 05/10/2024 TRAY CARRERA [facility] [address] [place] [address] 06/03/2024 Yamilet Coleman Type 2 diabetes mo itus with hyperglycemia E11.65 [facility] [place] [address] 07/04/2024 Yamilet Coleman [facility] [address] [place] [address] 07/04/2024 Yamilet Coleman Yeast infection B37. 9 and Type 2 diabetes mellitus with hyperglycemia E11.65 [facility] [address] [place] [address] 08/02/2024 Yamilet Coleman [facility] [place] [address] 09/28/2024 Yamilet Coleman [facility] [place] [address] [place] [address] 10/20/2024 TRAY CARRERA Assessments Encounter Date Diagnosis [...] unspecified (ICD-10 - M54.50) 09/26/2024 Malignant neoplasm o f unspecified part of unspecified bronchus or lung (ICD-10 - C34.90) follows with pulm and oncology. doing well 09/26/2024 Type 2 diabetes mellitus with hyperglycemia (ICD-10 - E11.65) [facility] A1c 6.3% she reports doing well with medicaitons 08/12/2024 Chest pain at rest (ICD-10 - R07.9) EKG-normal sinus rhythm Pt to [facility] cariologist's office about cp. 09/29/2024 Malignant neoplasm o f unspecified part of unspecified bronchus or lung (ICD-10 - C34.90) follows with pulm and oncology pt would benefit from home health due to starting treatment 09/29/2024 Pneumonia, unspecified organism (ICD-10 - J18.9) Will treat with antibiotics due to history and symptoms Encourage rest, hydration, and supportive care pt is currently on dexamethasone for swelling on brain 10/21/2024 Malignant neoplasm o f unspecified part of [...] currently on dexamethasone for swelling on brain 11/24/2024 Yeast infection (ICD-10 - B37.9) 11/24/2024 Cellulitis of left lower extremity (ICD-10 - L03.116) pt appears dehydrated w dry orals. encourage 1.5L water or other juices sprite etc per day. take bactrim w a snack and 16 oz water bid. pt agrees. 09/29/2024 Acute cough (ICD-10 - R05.1) 11/24/2024 Type 2 diabetes mellitus with hyperglycemia (ICD-10 - E11.65) [facility] decent control aic 6.6 in -202410/21/2024 Essential (primary) hypertension (ICD-10 - I10) increasing [...] K21.9) stable on protonix 08/05/2024 Malignant neoplasm o f unspecified part of unspecified bronchus or lung (ICD-10 - C34.90) follows with pulm and oncology 07/08/2024 Gastroesophageal reflux disease without esophagitis (ICD-10 - K21.9) stable on protonix 08/12/2024 Chronic kidney disease (CKD), stage II (mild) (ICD-10 - N18.2) 09/29/2024 Weakness generalized (ICD-10 - R53.1) working with care and insurance so patient can keep her wheelchair she will need this to help with visits. starting chemo and radiation soon 09/26/2024 COPD without exacerbation (ICD-10 - J44.9) stable. has stopped smoking she reports breathing is better she kirill any wheezing. no exacerbations 11/24/2024 Cellulitis of right external ear (ICD-10 - H60.11) 10/21/2024 Acute cough (ICD-10 - R05.1) 10/21/2024 Weakness generalized (ICD-10 - R53.1) 09/26/2024 Congenital multiple renal cysts (ICD-10 - Q61.02) reviewed renal US showed bilateral renal cyst hx of cyst. high risk due to malignancy. she has had PET scan , nml 09/29/2024 COPD without exacerbation (ICD-10 - J44.9) stable. has stopped smoking 11/24/2024 Immunocompromised patient (ICD-10 - D84.9) 07/08/2024 Neuropathy (ICD-10 - G62.9) stable. tx from oncology 05/16/2024 Gastroesophageal reflux disease without esophagitis (ICD-10 - K21.9) stable on protonix 03/21/2024 Gastroesophageal reflux disease without esophagitis (ICD-10 - K21.9) 04/27/2024 Neuropathy (ICD-10 - G62.9) stable. tx from oncology 01/01/2024 Anxiety (ICD-10 - F41.9) 02/25/2024 Malignant neoplasm o f unspecified part of [...] (ICD-10 - E11.65) [facility] 04/27/2024 Malignant neoplasm o f unspecified part of unspecified bronchus or lung (ICD-10 - C34.90) follows with pulm and oncology. doing well 05/16/2024 Neuropathy (ICD-10 - G62.9) stable. tx from oncology 07/08/2024 Malignant neoplasm o f unspecified part of [...] [facility] stable on statin 05/16/2024 Malignant neoplasm o f unspecified part of [...] regimen 05/16/2024 Mixed hyperlipidemia (ICD-10 - E78.2) [facility] stable on statin 07/08/2024 Allergic rhinitis (ICD-10 [...] PCR 05/16/2024 Lipid Panel With LDL/HDL Ratio 3 Comp. Metabolic Panel (14) 04/03/2023 Next Appt Details Provider Name:Yamilet Stephanie heath, 02/27/2025 10:30:00 AM, [address], [place], [address], Insurance Providers Payer Name Payer Address Payer Phone Subscriber Number Group Number Insured Name Patient Relationship to Insured Coverage Start Date Coverage End Date [employer] -[facility] [id number] [place] [address] [id number] Teresa Urbina Self - patient is the insured Medical (General) History Medical History History ICD Code Hypertension (Ricky)High Cholesterol (Ricky) Arthritis (Ricky)Diabetes (Ricky) Surgical History Surgery Date(Month/Year) No Surgeries As Of Todays Date Hospitalization History Reason Date(Month/Year) Pneumonia 06/2017
--- OUTSIDE RECORDS SUMMARY | 2024-11-24 20:57 | XMS_ITS ---
Author Organization [facility] Address [address] [place] [address] Care Team Providers Care Pottery Striper Name Role Phone Laurie Gutierrez MD Primary Care Provider [phone] Joshua Martínez MD Unavailable Sabine Morales LPN Unavailable Unavailable Transitional Care Management Status:Closed (Closed) Start date:10/19/2024 Enrollment date:10/19/2024 Enrollment reason:Identified using hospital discharge data End date:11/01/2024 Close reason:Patient Readmitted Overview This episode type is for outpatient care managers enrolling patients in the [facility] Transitional Care Management program. Continued Care and Services Coordination
--- OUTSIDE RECORDS SUMMARY | 2024-11-24 20:57 | XMS_ITS | Encounter Summary ---
Author Organization [facility] Address [address] [place] [address] Care Team Providers Care Personal Vehicle Advisor Name Role Phone Paola Hyde APRN Primary Care Provider Laurie Gutierrez MD Primary Care Provider [phone] Joshua Martínez MD Unavailable Jasmina Smith NETBACKUP ADMIN Unavailable Unavailable Paradise Pacheco RN Unavailable Unavailab Sabine Crowe NETBACKUP ADMIN Unavailable Unavailable Encounter Details Date Type Department Care Team (Late Contact Info) Description 09/01/2023 Orders Only External Location [address] [place] [address] Provider, External Social History Tobacco [...] [address] [facility] [place] [address] 11/29/2024 11:00 AM EDT Office Visit [facility] [address] [facility], [address] [place] [address] Satnam Colvin MD [address] [facility] [address] [place] [address] 11/29/2024 12:30 PM EDT Appointment [facility] [address] [place] [address] 11/30/2024 1:30 PM EDT Appointment [facility] [address] [place] [address] 12/01/2024 2:00 PM EDT Appointment [facility] [address] [place] [address] 12/06/2024 11:40 AM EDT Appointment [facility] Radiation [address] [facility] [place] [address] Haven Blum, BOAT CAMP OPERATOR [address] [facility] [address] [place] [address] 01/19/2025 9:30 AM EDT Appointment [facility] Radiology [address] [place] [address] 01/19/2025 10:45 AM EDT Office Visit [facility] [address] [place] [address] Abhilash Bangura MD [address] [place] [address] 03/08/2025 1:00 PM EDT Office Visit [facility] [place] 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 Panic 10/26/2024 10/31/2024 documented as of this encounter Care Teams Personal Vehicle Advisor Relationship Specialty Start Date End Date Paola Hyde APRN [address] [place] [id number] PCP - General 09/28/20 12/08/23 Laurie Gutierrez MD [address] [place] [address] PCP - General 12/09/23 Joshua Martínez MD [address] [place] [address] Consulting Physician Radiation Oncology 09/19/24 Jasmina Smith LPN VALUE[employer] [place] [address] TCM Nurse 10/19/24 11/01/24 Paradise Pacheco RN [facility] INTERVENT[facility] RADIOLOGY Registered Nurse 11/21/24 11/21/24 Sabine Morales LPN TCM Nurse 11/23/24 documented as of this encounter
--- OUTSIDE RECORDS SUMMARY | 2024-11-24 20:57 | XMS_ITS | Clinical Summary ---
Author Organization [facility] Address [address] [place] [address] Care Team Providers Care Corn Sheller Name Role Phone Laurie Gutierrez MD Primary Care Provider [phone] Joshua Martínez MD Unavailable Sabine Morales LPN Unavailable Unavailable Allergies Active Allergy Reactions Criticality Noted Date Comments Cephalexin Nausea,Vomiting Low 11/19/2023 Lisinopril Cough Low 11/19/2023 Meloxicam Nausea Low 06/30/2016 Medications atorvastatin (Lipitor) 40 MG tablet Take 1 tablet by mouth every evening. Active Calcium Carb-Cholecal ciferol 600-10 MG-MCG tablet Take 1 tablet by mouth daily. Active cetirizine (ZyrTEC) 10 MG tablet Take 1 tablet by mouth daily. Active Vitamin B-12 ER 1000 MCG tablet controlled-re lease Take 1 tablet by mouth Daily. Active FLUoxetine (PROzac) 40 MG capsule Take 1 capsule by mouth daily. Active pantoprazole (Protonix) 40 MG EC tablet Take 1 tablet by mouth daily. Do not crush, chew, or split. Active SITagliptin (Januvia) 50 MG tablet Take 1 tablet by mouth every morning. Active montelukast (Singulair) 10 MG tablet Take 1 tablet by mouth nightly. Active triamterene-h ydrochlorothi azide (Maxzide-25) 37.5-25 MG tablet Take 1 tablet by mouth every morning. Active hydrOXYzine HCl (Atarax) 25 MG tablet Take 1 tablet by mouth 3 times a day as needed. Active metFORMIN (Glucophage) 1000 MG tablet Take 1 tablet by mouth 2 times a day with meals. Active Budeson-Glyco pyrrol-Formot anne (Breztri Aerosphere) 160-9-4.8 [...] as needed for indigestion or heartburn. Active benzonatate (Tessalon) 100 MG capsule Take 1 capsule by mouth 3 times a day as needed for cough. Do not crush or chew. 20 capsule 10/19/19 25 Active magic mouthwash BLM (FIRST-Mouthw tamir) suspension Swish and spit 15 mL 4 times a day before meals and nightly for 3 days. 180 mL 10/19/19 25 Active Additional Information Patient taking differently:15 mL Swish & Spit4 times daily PRN, mucositis, Reported on 11/19/2024 magic butt balm (Cholestyrami ne) CMPD (Magic Butt) Apply 1 Application topically every 1 hour as needed for diaper rash. 80 g 11/01/19 25 2024 Active pen needle, diabetic 31G X 5 MM misc Use as directed with insulin pen. 100 each 11 11/01/19 25 Active glucose (Trueplus Glucose) 4 g chewable tablet Chew 4 tablets as needed for low blood sugar. 50 tablet 12 11/01/19 25 Active estradiol (Estrace) 0.1 MG/GM vaginal cream Insert 2 g into the vagina daily. Active mupirocin (Bactroban) 2 % ointment Apply on head 2 times a day 22 g 11/09/19 25 Active Additional Information Patient taking differently: 1 Application Topical 2 times daily, Apply on head 2 times a day, Reported on 11/19/2024 Probiotic, Lactobacillus , capsule Take 1 capsule by mouth daily. 30 capsule 1 11/09/19 25 2024 Active prochlorperaz ine (Compazine) 10 MG tabletIndicat [...] tablet 5 11/09/19 25 Active nystatin (Mycostatin) 248792 UNIT/GM powder Apply on bottom 2 times a day 30 g 11/09/19 25 Active lidocaine (Xylocaine) 5 % ointment Apply 2 times a day. 30 g 11/09/19 25 Active acetaminophen (Tylenol) 325 MG tablet Take 2 tablets by mouth every 6 hours. Under [place] law, monthly prescriptions (30 days) can be refilled at 25 days and three-month prescriptions (90 days) at 80 days. Please contact the insurance company with questions if refills are denied. 100 tablet 11/17/19 25 Active Additional Information Patient taking differently:650 mg Oral Every 6 hours scheduled,(No instructions reported), Reported on 11/19/2024 rivaroxaban (Xarelto) 20 MG tablet Take 1 tablet by mouth 1 time each day with dinner. Take with food. Active metoprolol tartrate (Lopressor) 50 MG tablet Take 1 tablet by mouth 2 times a day. 60 tablet 11/23/19 25 2024 Active gabapentin (Neurontin) 600 MG tablet Take 1 tablet by mouth 4 times a day. 2024 Discontinued(R eorder) Xarelto 20 MG tablet Take 1 tablet by mouth every evening. 2024 Discontinued(S top Taking at Discharge) ondansetron (Zofran) 8 MG tablet Take 1 tablet by mouth every 8 hours as needed for nausea or vomiting. 2024 Discontinued(E ntered in Error) empagliflozin (Jardiance) 25 MG Take 1 tablet by mouth daily. 2024 Discontinued(S top Taking at Discharge) tiZANidine (Zanaflex) 2 MG tablet Take 1 tablet by mouth nightly. 2024 Discontinued(E ntered in Error) ciclopirox (Penlac) 8 % solution Apply over affected nail fold daily. 2024 Discontinued(E ntered in Error) Accu-Chek Softclix Lancets lancets USE TO TEST BLOOD SUGAR 3 TIMES EACH DAY 09/02/192024 Discontinued(E ntered in Error) B-D UF III MINI PEN NEEDLES 31G X 5 MM [facility] 09/20/19 25 2024 Discontinued(E ntered in Error) Blood Glucose Monitoring Suppl (NextCode Health Verio Flex System) w/Device kit 09/20/192024 Discontinued(E ntered in Error) Continuous Glucose Sensor (Dexcom G6 Sensor) [facility] USE DIRECTED TO MEASURE BLOOD SUGAR. REPLACE SENSOR EVERY 10 DAYS 09/02/192024 Discontinued(E ntered in Error) FREESTYLE LITE test strip USE TO TEST BLOOD SUGAR 3 TIMES EACH DAY AND NEEDED 09/02/192024 Discontinued(E ntered in Error) Alcohol Swabs (Easy Touch Alcohol Prep Medium) 70 % pads 09/20/192024 Discontinued(E ntered in Error) ondansetron (Zofran) 8 MG tabletIndicat ions:Extensiv e stage primary small cell carcinoma of lung Take 1 tablet by mouth 2 times a day. Take on Day 4 of cycle and then take PRN 30 tablet 5 10/05/19 25 2024 Discontinued(R eorder) prochlorperaz ine (Compazine) 10 MG tabletIndicat ions:Extensiv e stage primary small cell carcinoma of lung Take 1 tablet by mouth every 6 hours as needed for nausea or vomiting. 30 tablet 3 10/05/19 25 2024 Discontinued(R eorder) dexamethasone (Decadron) 2 MG tablet Take 1 tablet by mouth every 12 hours. 10 tablet 10/19/19 25 2024 Discontinued(E ntered in Error) insulin glargine-yfgn 100 UNIT/ML injection vial Inject 20 Units under the skin nightly. 10 mL 3 10/19/19 25 2024 Discontinued(E ntered in Error) Insulin Lispro (Admelog, HumaLOG) 100 UNIT/ML injection vial Inject 15 Units under the skin 3 times a day with meals. Can be adjusted per the MD at [facility] 10 mL 12 10/19/19 25 2024 Discontinued(E ntered in Error) nystatin (Mycostatin) 427212 UNIT/ML suspension Swish and swallow 5 mL 4 times a day for 39 doses. 195 mL 10/19/19 25 2024 Discontinued(S top Taking at Discharge) lidocaine (Xylocaine) 2 % solution Take 5 mL by mouth as needed for mild pain. 10/19/192024 Discontinued(E ntered in Error) Lantus SoloStar 100 UNIT/ML injection pen Inject under the skin 2 times a day. 10/19/192024 Discontinued(E ntered in Error) Continuous Glucose Document Control Supervisor (LogicTreecom G7 Document Control Supervisor) device USE TO MEASURE BLOOD SUGAR DIRECTED 09/30/192024 Discontinued(E ntered in Error) metoprolol succinate XL (Toprol-XL) 25 MG 24 hr tablet Take 2 tablets by mouth daily. Do not crush or chew. 60 tablet 10/26/192024 Discontinued(S top Taking at Discharge) insulin lispro (Admelog, HumaLOG) 100 UNIT/ML injection pen Inject 15 Units under the skin 3 times a day with meals. 2024 Discontinued(S top Taking at Discharge) insulin glargine (Lantus) 100 UNIT/ML injection vial Inject 20 Units under the skin nightly. 2024 Discontinued carvedilol (Coreg) 25 MG tablet Take 1 tablet by mouth 2 times a day. 2024 Discontinued insulin glargine (Lantus) 100 UNIT/ML injection vial Inject 25 Units under the skin nightly. 10 mL 3 11/01/19 25 2024 Discontinued(S top Taking at Discharge) NovoLOG FLEXPEN 100 UNIT/ML injection pen Inject under the skin 3 (three) times daily with meals per correction scale as follows: blood sugar 150-199 use 2 units, 200-249 use 4 units, 250-299 use 6 units, 300-349 use 8 units, 350-399 use 10 units, >399 12 units and call provider. 15 mL 3 11/01/19 25 2024 Discontinued(S top Taking at Discharge) metoprolol succinate XL (Toprol-XL) 50 MG 24 hr tablet Take 1 tablet by mouth daily. Do not crush or chew. 90 tablet 11/02/19 25 2024 Discontinued(S top Taking at Discharge) omeprazole (PriLOSEC) [address] capsule Take 1 capsule by mouth daily. 2024 Discontinued(E ntered in Error) cholestyramin e light (Prevalite) 4 GM/DOSE powder Take 1 packet by mouth 2 times a day with meals. 11/01/19 25 2024 Discontinued(E ntered in Error) nitrofurantoi n, macrocrystal- monohydrate, (Macrobid) 100 MG capsuleIndica tions:Acute cystitis without hematuria Take 1 capsule by mouth 2 times a day for 9 doses. 9 capsule 11/17/192024 Discontinued(S top Taking at Discharge) Active Problems Problem Noted Date Diagnosed Date fall11/16/2024 Assessment & Plan (11/16/2024 7:16 AM EDT): - Admit to T 6 - Tertiary 11/16 Concussion 11/16/2024 Assessment [...] vertex measuring up to 7 mm - Lyssa and Keppra given - Stable after 6hrs - Hold AC/AP through 11/30 - Nsgy following Other malaise 09/17/2024 Other [...] Encounters Date Type Department Care Team Description 11/24/2024 Patient Outreach [facility] [address], [address] [place] [address] Sabine Morales LPN 11/23/2024 Patient Outreach [facility] [address], [address] [place] [address] Sabine Morales LPN TCM Call 11/22/2024 Travel 11/21/2024 Patient Outreach [address], [address] [place] [address] Paradise Pacheco, RN Link 11/19/2024 12:35 AM EDT - 11/22/2024 4:58 PM EDT Hospital Encounter [facility] Inpatient [address] [place] [address] Jose David Ponce MD Wolak, Megan M, MD Atrial fibrillation with rapid ventricular response (CMS/HCC) (Primary Dx); Small cell carcinoma of lung, unspecified laterality, unspecified part of lung; Type 2 diabetes mellitus with diabetic neuropathy, unspecified whether senior living insulin use (CMS/HCC) Discharge Disposition: Home or Self Care 11/19/2024 Travel 11/18/2024 Orders Only External Location [address] [place] [address] Nuria Lunsford PA 11/18/2024 Orders Only External Location [address] [place] [address] Provider, External 11/16/2024 Travel 11/15/2024 4:42 PM EDT - 11/16/2024 3:39 PM EDT Hospital Encounter [facility] Emergency Department [address] [place] [address] Ashu Ortiz MD Nickols, Alexis K, MD Wheelock, Brittany N, MD SAH (subarachnoid hemorrhage) (CMS/HCC) (Primary Dx); SDH (subdural hematoma) (CMS/HCC); Nondisplaced fracture of distal phalanx of left thumb, initial encounter for closed fracture; Acute cystitis without hematuria Discharge Disposition: Home or Self Care 11/15/2024 Orders Only External Location [address] [place] [address] Regina Katz, CAT WAGON OPERATOR 11/15/2024 Orders Only External Location [address] [place] [address] Regina Katz, CAT WAGON OPERATOR 11/15/2024 Orders Only External Location [address] [place] [address] Regina Katz, CAT WAGON OPERATOR 11/15/2024 Orders Only External Location [address] [place] [address] Regina Katz, CAT WAGON OPERATOR 11/15/2024 Travel 11/15/2024 Orders Only External Location [address] [place] [address] Provider, External 11/15/2024 Orders Only External Location [address] [place] [address] Provider, External 11/15/2024 Orders Only External Location [address] [place] [address] Provider, External 11/15/2024 Orders Only External Location [address] [place] [address] Regina Katz, CAT WAGON OPERATOR 11/15/2024 Orders Only External Location [address] [place] [address] Provider, External 11/14/2024 8:45 AM EDT - 11/14/2024 11:59 PM EDT Hospital Encounter [facility] Radiation [address] [place] [address] Discharge Disposition: Still a Patient 11/14/2024 Travel 11/10/2024 2:39 PM EDT - 11/10/2024 11:59 PM EDT Hospital Encounter [facility] 1 [address] [place] [address] 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) Discharge Disposition: Home or Self Care 11/10/2024 Travel 11/09/2024 2:49 PM EDT - 11/09/2024 11:59 PM EDT Hospital Encounter [facility] 2 [address] [place] [address] 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) Discharge Disposition: Home or Self Care 11/09/2024 Travel 11/08/2024 2:00 PM EDT - 11/08/2024 11:59 PM EDT Hospital Encounter [facility] 1 [address] [place] [address] 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) Discharge Disposition: Home or Self Care 11/08/2024 11:20 AM EDT Office Visit [facility] [address] [address] Satnam Colvin MD 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); Encounter for antineoplastic chemotherapy; Acute hypoxic respiratory failure; Chemotherapy-induced neutropenia (CMS/HCC); Neoplastic (malignant) related fatigue 11/08/2024 11:00 AM EDT Clinical Support [facility] [address] [address] Extensive stage primary small cell carcinoma of lung 11/08/2024 Social Work Psych Oncology [address] [place] [address] Mariah Rowley 11/08/2024 Travel 11/07/2024 12:14 PM EDT - 11/07/2024 11:59 PM EDT Hospital Encounter [facility] [address] [address] Discharge Disposition: Still a Patient 11/07/2024 8:45 AM EDT - 11/07/2024 12:13 PM EDT Hospital Encounter [facility] [address] [address] Discharge Disposition: Still a Patient 11/07/2024 Orders Only [facility] Rad[facility] [address] [address] Radiation Oncology, PhysicianMD 11/07/2024 Orders Only [facility] [address] [address] Radiation Oncology, PhysicianMD 11/07/2024 Travel 11/04/2024 10:49 AM EDT - 11/04/2024 11:59 PM EDT Hospital Encounter [facility] [address] [address] Discharge Disposition: Still a Patient 11/04/2024 Orders Only [facility] [address] [address] Radiation Oncology, PhysicianMD 11/04/2024 Social Work Psych Oncology [address] [place] [address] Mariah Rowley 11/02/2024 10:54 AM EDT - 11/02/2024 11:59 PM EDT Hospital Encounter [facility] [address] [phone] Discharge Disposition: Still a Patient 11/02/2024 Social Work Psych Oncology [address] [place] [address] Mariah Rowley 11/02/2024 Orders Only [facility] [address] [phone] Radiation Oncology, PhysicianMD 11/01/2024 10:58 AM EDT - 11/01/2024 11:59 PM EDT Hospital Encounter [facility] Radiation [address] [place] [phone] Garrison Marie MD 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CMS/HCC) (Primary Dx) Discharge Disposition: Still a Patient 11/01/2024 10:16 AM EDT - 11/01/2024 10:57 AM EDT Hospital Encounter [facility] [address] [phone] Discharge Disposition: Still a Patient 11/01/2024 Patient Outreach POP[facility] [address], [address] [place] [address] Jasmina Smith LPN TCM Call 11/01/2024 Travel 11/01/2024 Orders Only [facility] [address] [phone] Radiation Oncology, PhysicianMD 10/31/2024 8:45 AM EDT - 10/31/2024 11:59 PM EDT Hospital Encounter [facility] [address] [phone] Discharge Disposition: Still a Patient 10/31/2024 8:41 AM EDT - 10/31/2024 8:44 AM EDT Hospital Encounter [facility] [address] [address] Discharge Disposition: Still a Patient 10/31/2024 Travel 10/31/2024 Orders Only [facility] [address] [address] Radiation Oncology, Physician, 10/28/2024 8:46 AM EDT - 10/28/2024 11:59 PM EDT Hospital Encounter [facility] [address] [address] Discharge Disposition: Still a Patient 10/28/2024 Social Work Psych Oncology [address] [place] [address] Mariah Rowley 10/28/2024 Orders Only [facility] [address] [address] Radiation Oncology, Physician, 10/27/2024 11:45 AM EDT - 10/27/2024 11:59 PM EDT Hospital Encounter [facility] [address] [address] Discharge Disposition: Still a Patient 10/27/2024 Orders Only [facility] [address] [address] Radiation Oncology, Physician, 10/26/2024 11:30 AM EDT - 10/26/2024 11:59 PM EDT Hospital Encounter [facility] [address] [address] Discharge Disposition: Still a Patient 10/26/2024 Orders Only [facility] [address] [address] Radiation Oncology, Physician, 10/25/2024 12:45 PM EDT - 10/25/2024 11:59 PM EDT Hospital Encounter [facility] [address] [address] Discharge Disposition: Still a Patient 10/25/2024 10:03 AM EDT - 10/31/2024 5:33 PM EDT Hospital Encounter [facility] Inpatient [address] [place] [address] West Bobby MD Lile, Anthony G, MD Pneumonia of right upper lobe due to infectious organism (Primary Dx); Hypoxia; Other fatigue Discharge Disposition: Home or Self Care 10/25/2024 8:40 AM EDT Office Visit [facility] Perry Wenceslao [address] [place] [address] Vonnie Barksdale PA Atrial flutter with rapid ventricular response (CMS/HCC) (Primary Dx); High risk medication use; Anesthesia of skin 10/25/2024 Orders Only [facility] [address] [phone] Radiation Oncology, PhysicianMD 10/25/2024 Travel 10/24/2024 11:48 AM EDT - 10/24/2024 11:59 PM EDT Hospital Encounter [facility] [address] [address] Discharge Disposition: Still a Patient 10/24/2024 11:47 AM EDT Hospital Encounter [facility] [address] [phone] Joshua Martínez MD Discharge Disposition: Still a Patient 10/24/2024 8:59 AM EDT - 10/24/2024 11:46 AM EDT Hospital Encounter [facility] [address] [phone] Discharge Disposition: Still a Patient 10/24/2024 Orders Only [facility] [address] [phone] Radiation Oncology, PhysicianMD 10/24/2024 Travel 10/20/2024 9:22 AM EDT - 10/20/2024 11:59 PM EDT Hospital Encounter [facility] [address] [phone] Discharge Disposition: Still a Patient 10/20/2024 12:10 AM EDT - 10/20/2024 9:21 AM EDT Hospital Encounter [facility] [address] [phone] Discharge Disposition: Still a Patient 10/19/2024 Patient Outreach [facility] [address] [place] [address] Jasmina Smith, AUTOMOTIVE TIRE WORKER TCM Call 10/19/2024 Telephone [facility] Perry Wenceslao [address] [facility] [place] [address] Teresita Oconnell MD 10/18/2024 Travel 10/17/2024 Orders Only [facility] [address] [facility]nd [place] [address] Rupa De Santiago, PharmD 10/14/2024 Travel 10/13/2024 Travel 10/12/2024 4:08 PM EDT - 10/18/2024 12:48 PM EDT Hospital Encounter [facility] Inpatient [address] [place] [address] Sanya Ledezma MD Garrison, Caitlin M, Hyacinth Michael MD Tsering Dolkar, Unknown, MD Febrile neutropenia (CMS/HCC) (Primary Dx); Hypomagnesemia Discharge Disposition: Home or Self Care 10/12/2024 Travel 10/12/2024 Telephone [facility] [address] [place] [address] Abhilash Bangura MD HCN - Patient Message (Call back ) 10/06/2024 2:22 PM EDT - 10/06/2024 11:59 PM EDT Hospital Encounter [facility] Infusion [address] [place] [address] 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) Discharge Disposition: Home or Self Care 10/06/2024 Travel 10/05/2024 2:13 PM EDT - 10/05/2024 11:59 PM EDT Hospital Encounter [facility] Infusion [address] [place] [address] 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) Discharge Disposition: Home or Self Care 10/05/2024 Travel 10/04/2024 11:02 AM EDT - 10/04/2024 11:59 PM EDT Hospital Encounter [facility] Infusion [address] [place] [address] 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) Discharge Disposition: Home or Self Care 10/04/2024 10:40 AM EDT Office Visit [facility] [address] [facility]nd [place] [address] Satnam Colvin MD 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); Brain mass; Type 2 diabetes mellitus without complication, without long-term current use of insulin; Primary hypertension; Encounter for antineoplastic chemotherapy 10/04/2024 10:00 AM EDT Clinical Support [facility] [address] [facility] [address] [place] [address] Extensive stage primary small cell carcinoma of lung 10/04/2024 Social Work Psych Oncology [address] [place] [address] Mariah Rowley 10/04/2024 Travel 10/03/2024 10:06 AM EDT - 10/03/2024 11:59 PM EDT Hospital Encounter [facility] [address] [address] 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CMS/HCC) Discharge Disposition: Still a Patient 10/03/2024 Travel 09/30/2024 Travel 09/26/2024 4:00 PM EDT - 09/26/2024 11:59 PM EDT Hospital Encounter [facility] [address] [address] Discharge Disposition: Still a Patient 09/26/2024 12:55 PM EDT - 09/26/2024 3:59 PM EDT Hospital Encounter [facility] [address] [address] Joshua Martínez MD 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CMS/HCC) (Primary Dx); Brain mass Discharge Disposition: Still a Patient 09/26/2024 Travel 09/22/2024 2:45 PM EDT Office Visit [place] [facility] [address] [place] [address] Abhilash Bangura MD 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CMS/HCC) (Primary Dx) 09/22/2024 Orders Only [facility] [address] [place] [address] Abhilash Bangura MD 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CMS/HCC) (Primary Dx) 09/22/2024 Travel 09/20/2024 10:00 AM EDT Office Visit [facility] [address] [facility]nd [place] [address] Satnam Colvin MD SDH (subdural hematoma) (CMS/HCC) (Primary Dx); Brain mass; Extensive stage primary small cell carcinoma of lung; Type 2 diabetes mellitus without complication, without long-term current use of insulin; Primary hypertension; Encounter for antineoplastic chemotherapy 09/20/2024 Social Work Psych Oncology [address] [place] [address] Mariah Rowley 09/20/2024 Travel 09/19/2024 Orders Only [facility] [address] [place] [address] Haven Peterson, Type 2 diabetes mellitus with hyperglycemia, without long-term current use of insulin (CMS/HCC) (Primary Dx) 09/13/2024 Telephone [facility] Radiation [address] [facility] [place] [address] Joshua Martínez MD 09/12/2024 Travel 09/05/2024 7:30 AM EDT - 09/05/2024 10:40 AM EDT Surgery [facility] A OPERATING ROOM [address] [place] [address] Abhilash Bangura MD CRANIOTOMY, FOR INTRACRANIAL NEOPLASM EXCISION [06641 (CPT )] 09/05/2024 7:30 AM EDT Anesthesia Event [facility] OPERATING ROOM [address] [place] [address] Ry Villalba MD Garrett, Olivia F, DO 09/05/2024 Travel 09/04/2024 Travel 09/01/2024 Travel 08/31/2024 5:55 PM EDT - 09/09/2024 2:27 PM EDT Hospital Encounter [facility] Inpatient [facility] [address] [place] [address] Manuel Almonte MD Prabhu, Ashwin B, MD Leung, Stephanie, MD Tackett, Madison S, Right leg weakness (Primary Dx); SDH (subdural hematoma) (CMS/HCC); Brain mass Discharge Disposition: Rehab Facility 08/31/2024 3:20 PM EDT Office Visit [facility] Perry Meraux [address] [place] [address] Teresita Oconnell MD Atrial flutter with rapid [...] drink first t laurie in the morning (EYE-ZONE MANAGER) to steady your nerves or to [...] Mass Index 40.33 11/19/2024 6:29 PM EDT Plan of Treatment Upcoming Encounters Date Type Department Care Team (Late st Contact Info) Description 11/29/2024 10:30 AM EDT Clinical Support [facility] [address] [facility]nd [place] [phone] 11/29/2024 11:00 AM EDT Office Visit [facility] [address] [facility] [place] [address] Satnam Colvin MD [address] [facility] Nuria Degroot [facility] [address] [place] [address] 11/29/2024 12:30 PM EDT Appointment [facility] 1 [address] [place] [phone] 11/30/2024 1:30 PM EDT Appointment [facility] 1 [address] [place] [phone] 12/01/2024 2:00 PM EDT Appointment [facility] 1 [address] [place] [phone] 12/06/2024 11:40 AM EDT Appointment [facility] [address] [facility] Health. [address] [place] [id number] Haven Blum, SHARDA [address] [facility] [address] [place] [address] 01/19/2025 9:30 AM EDT Appointment [facility] Radiology [address] [place] [id number] 01/19/2025 10:45 AM EDT Office Visit [facility] [address], [address] [place] [address] Abhilash Bangura MD [address] [place] [address] 03/08/2025 1:00 PM EDT Office Visit [facility] Perry Wenceslao [address] [place] [address] Teresita Oconnell MD [address] [place] [address] Health Maintenance Due Date Last [...] - Risk 60-74 years 1-dose series) 2020 VOE-[id number]-90 Vaccine (9 - Mixed Product risk 2023- season) 09/13/2024 03/15/2024, 06/11/2023, 07/01/2022, Additional history exists [facility]-Influenza Vaccine (#1) 01/16/202501/31, 02/23/2023, 03/17/2022, Additional history exists [facility]-Diabetes: Hemoglobin A1C 03/02/2025 09/02/2024, 11/19/2023 [facility]- SDOH Screenings 05/24/2025 [facility]-Adult SDOH Screenings 05/24/2025 11/21/2024 [facility]-Depression Screening 08/31/2025 08/31/2024, 08/16 [facility]-Breast Cancer Screening 01/14/2026 01/15/2024, 0 01/15/2024 [facility]-DTaP,Tdap,and Td Vaccines (2 - Td or Tdap) 09/04/2027 09/03/2017 [facility]-Hepatitis A Vaccines Aged Out 09/03/2018, 01/17 No longer eligible based on patient's age to complete this topic [facility]HIV Screening Completed 08/31/2024 [facility]Hepatitis C Screening Completed 08/31/2024, 02/2014 [facility]-Lung Cancer Screening Discontinued 2024, 10/13/2024, 09/01/2024 [facility]-Obesity Intervention Completed 025, 11/08/2024, 10/25/2024, Additional history exists HPV Vaccines Aged [...] this topic Medical Devices Implanted Type Area Bunk Assembler Device Identifier Shelf Expiration Date Model / Serial / Lot Graft Dura Repair 2x2 Synthecel - [id number] Implanted:Qty: 1 on 09/05/2024 by Abhilash Bangura MD at [facility] [employer]-[id number] 03/17/2026 [id number] / / [id number] Screw Ti Matrixneuro Selfdrill 4mm - S. - [id number] Implanted:Qty: 12 on 09/05/2024 by Abhilash Bangura MD at [facility] [employer] [facility]-[id number] 09/05/2025 [id number] / . / Plate, 2 Hole Low Profile - S. - [id number] Implanted:Qty: 2 on 09/05/2024 by Abhilash Bangura MD at [facility]09/05/2025 [id number] / . / Cover, Neuro Vernon Lp 17mm - S. - [id number] Implanted:Qty: 2 on 09/05/2024 by Abhilash Bangura MD at [facility]-09/05/2025 [id number] / . / Procedures Procedure Name Priority Date/Time Associated Diagnosis Comments POCT GLUCOSE METER UNSOLICITED RESULTS Routine 11/22/2024 11:50 AM EDT TYPE AND SCREEN Routine 11/22/2024 11:30 AM EDT PREPARE RBC Routine 11/22/2024 10:58 AM EDT POCT GLUCOSE METER UNSOLICITED RESULTS Routine 11/22/2024 7:28 AM EDT BASIC METABOLIC PANEL, PLASMA Routine 11/22/2024 2:44 AM EDT CBC W/O DIFFERENTIAL Routine 11/22/2024 2:44 AM EDT POCT GLUCOSE METER UNSOLICITED RESULTS Routine 11/21/2024 7:48 PM EDT POCT GLUCOSE METER UNSOLICITED RESULTS Routine 11/21/2024 5:04 PM EDT POCT GLUCOSE METER UNSOLICITED RESULTS Routine 11/21/2024 11:51 AM EDT POCT GLUCOSE METER UNSOLICITED RESULTS Routine 11/21/2024 7:56 AM EDT BASIC METABOLIC PANEL, PLASMA Routine 11/21/2024 12:47 AM EDT CBC W/O DIFFERENTIAL Routine 11/21/2024 12:47 AM EDT POCT GLUCOSE METER UNSOLICITED RESULTS Routine 11/20/2024 8:22 PM EDT POCT GLUCOSE METER UNSOLICITED RESULTS Routine 11/20/2024 4:58 PM EDT POCT GLUCOSE METER UNSOLICITED RESULTS Routine 11/20/2024 12:19 PM EDT POCT GLUCOSE METER UNSOLICITED RESULTS Routine 11/20/2024 8:01 AM EDT ECG ADULT Routine 11/20/2024 7:20 AM EDT CBC WITH AUTO DIFFERENTIAL Routine 11/20/2024 12:57 AM EDT MAGNESIUM, PLASMA Routine 11/20/2024 12:57 AM EDT PHOSPHORUS, PLASMA Routine 11/20/2024 12:57 AM EDT BASIC METABOLIC PANEL, PLASMA Routine 11/20/2024 12:57 AM EDT HEMOGLOBIN AND HEMATOCRIT, BLOOD Timed 11/20/2024 12:57 AM EDT POCT GLUCOSE METER [...] PREPARE RBC Routine 11/19/2024 3:38 AM EDT URINE MEEK PANEL STAT 11/19/2024 3:37 AM EDT URINALYSIS WITH REFLEX MICROSCOPIC STAT 11/19/2024 3:37 AM EDT URINALYSIS WITH REFLEX MICROSCOPIC AND CULTURE STAT 11/19/2024 3:37 AM EDT TYPE AND SCREEN STAT 11/19/2024 1:33 AM EDT IRON & TOTAL IRON BINDING CAPACITY, PLASMA (INCLUDES TRANSFERRIN) Add-On 11/19/2024 12:51 AM EDT ANTI XA LEVEL UNFRACTIONATED HEPARIN STAT 11/19/2024 12:51 AM EDT MAGNESIUM, PLASMA STAT 11/19/2024 12:51 AM EDT COMPREHENSIVE METABOLIC PANEL, PLASMA STAT 11/19/2024 12:51 AM EDT CBC WITH AUTO DIFFERENTIAL STAT 11/19/2024 12:51 AM EDT POCT GLUCOSE METER UNSOLICITED RESULTS Routine 11/19/2024 12:43 AM EDT ECG ADULT Routine 11/19/2024 12:[address] MSK OUTSIDE IMAGES 11/18/2024 8:[address] OUTSIDE IMAGES 11/18/2024 8:3 8 PM EDT XR HAND LEFT 3+ VIEWS STAT 11/16/2024 8:30 AM EDT XR WRIST LEFT 3+ VIEWS STAT 8:30 AM EDT XR KNEE LEFT 3 VIEWS STAT 11/16/2024 8:30 AM EDT MULTI DRUG RESISTANCE TEST Routine 11/16/2024 1:41 AM EDT URINALYSIS MICROSCOPIC FOR UA REFLEX STAT 11/16/2024 1:14 AM EDT URINALYSIS WITH REFLEX MICROSCOPIC STAT 11/16/2024 1:14 AM EDT DRUG ABUSE SCREEN, URINE STAT 11/16/2024 1:[address] VENOGRAM HEAD STAT 11/15/2024 9:[address] HEAD WO IV CONTRAST STAT 9:21 PM EDT TRAUMA SHOCK PANEL BLOOD GAS STAT 11/15/2024 8:06 PM EDT TYPE AND SCREEN STAT 11/15/2024 6:51 PM EDT TEST QUALITATIVE PLASMA STAT 11/15/2024 6:51 PM EDT ETHYL ALCOHOL PLASMA STAT 11/15/2024 6:51 PM EDT APTT STAT 11/15/2024 6:51 PM EDT PROTHROMBIN TIME(PT) / INR STAT 11/15/2024 6:51 PM EDT CBC W/O DIFFERENTIAL STAT 11/15/2024 6:51 PM EDT COMPREHENSIVE METABOLIC PANEL, PLASMA STAT 11/15/2024 6:51 PM EDT EXTRA TUBE GOLD TOP Routine 11/15/2024 6 :41 PM EDT EXTRA TUBES Routine 11/15/2024 6:41 PM EDT OXYGEN THERAPY STAT 11/15/2024 5:50 PM EDT OXYGEN THERAPY STAT 11/15/2024 5:50 PM EDT OXYGEN THERAPY STAT 11/15/2024 5:50 PM EDT POCT GLUCOSE METER UNSOLICITED RESULTS Routine 11/15/2024 4:49 PM EDT XR MSK OUTSIDE IMAGES 11/15/2024 2:42 PM EDT XR OUTSIDE IMAGES 11/15/2024 2:4 2 PM EDT XR MSK OUTSIDE IMAGES 11/15/2024 2:42 PM EDT XR MSK OUTSIDE IMAGES 11/15/2024 2:[address] NEURO OUTSIDE IMAGES 11/15/2024 2:[address] OUTSIDE IMAGES 11/15/2024 2:[address] OUTSIDE IMAGES 11/15/2024 2:[address] OUTSIDE IMAGES 11/15/2024 2:[address] OUTSIDE IMAGES 11/15/2024 2:3 8 PM EDT MAGNESIUM, PLASMA STAT 11/08/2024 11:36 AM EDT [...] ECG ADULT STAT 10/25/2024 10:12 AM EDT [facility] POCUS PROCDOC Routine 10/25/2024 9:51 AM EDT [facility] ED POCUS PROCDOC Routine 10/25/2024 9:51 AM [...] ADULT STAT 10/12/2024 3:39 PM EDT CARIS MD TUMOR SEEK HYBRID + IHCS AND OTHER [...] ANESTHESIA PLACEHOLDER Routine 09/05/2024 7:43 AM EDT UT AN ELECTIVE ENDOTRACHEAL AIRWAY Routine 09/05/2024 7:43 AM EDT POCT GLUCOSE METER UNSOLICITED RESULTS Routine 09/05/2024 7:22 AM EDT UT EXCIS SUPRATENT BRAIN TUMOR 09/05/2024 7:14 AM [...] (CMS/HCC) from Last 3 Months Results * Transfuse RBC, Irradiated (11/22/2024 4:22 PM EDT) Only the most recent of4 resultswithin the time period is included. us Regina Ivey MD BLOOD TRANSFUSION ORDERABLES Fi nal Result * (ABNORMAL) POCT glucose meter (11/22/2024 11:50 AM EDT) Only the most recent of118 resultswithin the time period is included. [facility] POCT Glucose 178(H) 74 - 99 mg/dL [...] for testing. Comment 11/22/2024 11:52 AM EDT [facility] Elementary Science Teacher ID Lisa Veliz 11/22/2024 11:52 AM EDT HEALTHCARE LAB Device ID [id number] 11/22/2024 11:52 AM EDT HEALTHCARE LAB Specimen Type POC Capillary 11/22/2024 11:52 AM EDT HEALTHCARE LAB Blood Capillary blood specimen / Unknown 11/22/2024 11:50 AM EDT 11/22/2024 11:52 AM EDT us Regina Ivey MD LAB POINT OF CARE TE ST DOCKED DEVICE UNSOLICITED RESULTS Final Result [facility] [address] [place] [id number] * Type and screen (11/22/2024 11:30 AM EDT) Only the most recent of4 resultswithin the time period is included. [facility] ABO/Rh O Positive 11/22/2024 10:58 AM EDT BLOOD BANK Antibody Screen Negative 11/22/2024 10:58 AM EDT BLOOD BANK Specimen Expiration 11/25/2024 23:59 11/22/2024 10:58 AM EDT BLOOD BANK Blood Venous blood specimen / Unknown Venipuncture / Unknown 11/22/2024 11:30 AM EDT 11/22/2024 11:36 AM EDT Regina Ivey MD LAB BLOOD BANK TEST ORDERABLES Final Result Performing Organization Address City/[facility]/ZIP Co de Phone Number BLOOD BANK [address] [place] [address], * Prepare Leukocyte Reduced RBC: 1 Units, Irradiated, Leukocyte reduced (CMV reduced risk) (11/22/2024 10:58 AM EDT) Only the most recent of3 resultswithin the time period is included. Pathologist [facility] Product Code [id number] CH BLOO D BANK Dispense Status Transfused BLOOD BANK Blood Expiration Date [id number] BLOOD BANK Unit Number [id number] B LOOD BANK Product Blood Type 5100 BLOOD BANK Blood Type O+ BLOOD BANK Crossmatch Compatible BLOOD BANK Other Regina Ivey MD BLOOD BANK PRODUCT ORDERABLES F inal Result Performing Organization Address City/[facility] Co de Phone Number BLOOD BANK [address] [place] [address], * (ABNORMAL) CBC W/O Differential (11/22/2024 2:44 AM EDT) Only the most recent of4 resultswithin the time period is included. WBC Count 6.07 3.70 - 10.30 10*3/uL LAB HEMATOLOGY METHOD 11/22/2024 3:04 AM EDT [facility] RBC Count 2.45(L) 3.90 - 5.20 10*6/uL LAB HEMATOLOGY METHOD 11/22/2024 3:04 AM EDT [facility] HGB 7.3(L) 11.2 - 15.7 g/dL LAB HEMATOLOGY METHOD 11/22/2024 3:04 AM EDT [facility] HCT 23.3(L) 34.0 - 45.0 % LAB HEMATOLOGY METHOD 11/22/2024 3:04 AM EDT [facility] Platelet Count 32(L) 155 - 369 10*3/uL LAB HEMATOLOGY METHOD 11/22/2024 3:04 AM EDT [facility] MCV 95 79 - 98 fL LAB HEMATOLOGY METHOD 11/22/2024 3:04 AM EDT [facility] MCH 29.8 26.0 - 32.0 pg LAB HEMATOLOGY METHOD 11/22/2024 3:04 AM EDT [facility] MCHC 31.3 30.7 - 35.5 g/dL LAB HEMATOLOGY METHOD 11/22/2024 3:04 AM EDT [facility] RDW 20.4(H) 11.5 - 14.5 % LAB HEMATOLOGY METHOD 11/22/2024 3:04 AM EDT [facility] MPV 11.6 8.8 - 12.5 fL LAB HEMATOLOGY METHOD 11/22/2024 3:04 AM EDT [facility] nRBC 0.7(H) <=0.0 per 100 WBCs LAB HEMATOLOGY METHOD 11/22/2024 3:04 AM EDT [facility] Blood Venous blood specimen / Unknown Venipuncture / Unknown 11/22/2024 2:44 AM EDT 11/22/2024 2:50 AM EDT us Regina Ivey MD LAB BLOOD ORDERABLES Final Resu lt [facility] [address] [place] [address] * (ABNORMAL) Basic metabolic panel (11/22/2024 2:44 AM EDT) Only the most recent of11 resultswithin the time period is included. Glucose, Plasma 210(H) 74 - 99 mg/dL 11/22/2024 3:19 AM EDT [facility] BUN, Plasma 6(L) 8 - 23 mg/dL 11/22/2024 3:19 AM EDT [facility] Creatinine, Plasma 0.61 0.60 - 1.10 mg/dL 11/22/2024 3:19 AM EDT [facility] BUN/Creatinine Ratio 10 11/22/2024 3:19 AM EDT [facility] Sodium, Plasma 141 136 - 145 mmol/L 11/22/2024 3:19 AM EDT [facility] Potassium, Plasma 3.5(L) 3.6 - 4.9 mmol/L 11/22/2024 3:19 AM EDT [facility] Chloride, Plasma 104 97 - 107 mmol/L 11/22/2024 3:19 AM EDT [facility] CO2, Plasma 24 22 - 29 mmol/L 11/22/2024 3:19 AM EDT [facility] Anion Gap 13 6 - 16 mmol/L 11/22/2024 3:19 AM EDT [facility] Total Calcium, Plasma 8.0(L) 8.9 - 10.2 mg/dL 11/22/2024 3:19 AM EDT [facility] eGFRcr 100.6 mL/min/1.7 3m*2 11/22/2024 3:19 AM EDT [facility] Comment:Reported eGFRcr in m L/min/1.73m2 is based the CKD-EPI 2020 equation that does not use a race coefficient. Blood Venous blood specimen / Unknown Venipuncture / Unknown 11/22/2024 2:44 AM EDT 11/22/2024 2:49 AM EDT us Regina Ivey MD LAB BLOOD ORDERABLES Final Resu lt [facility] [address] [place] [address] * ECG Adult (11/20/2024 7:20 AM EDT) Only the most recent of12 resultswithin the time period is included. EKG DIAGNOSIS CLASS Abnormal MUSE ECG Ventricular Rate 148 BPM MUSE ECG Atrial Rate 340 BPM MUSE ECG QRSD Interval 90 ms MUSE ECG QT Interval 298 ms MUSE ECG QTC Interval 467 ms MUSE ECG P [place] 110 degrees MUSE ECG R [place] 16 degrees MUSE ECG T Wave [place] 82 degrees MUSE ECG Diagnosis Atrial flutter with variable AV block MUSE ECG Diagnosis Nonspecific ST and T wave abnormality MUSE ECG Diagnosis Abnormal ECG MUSE ECG Diagnosis Compared to last ECG MUSE ECG Diagnosis atrial flutter has replaced sinus rhythm MUSE ECG Diagnosis MUSE ECG Diagnosis Confirmed by Leeroy Herbert ([id number]) on 11/20/2024 12:49:05 PM MUSE ECG 11/20/2024 7:20 AM EDT 11/20/2024 12:49 PM EDT Regina Ivey MD ECG ORDERABLES Final Result Performing Organization Address City/[facility]/ZIP Co de Phone Number MUSE ECG * (ABNORMAL) Hemoglobin and Hematocrit, Blood (11/20/2024 12:57 AM EDT) Only the most recent of3 resultswithin the time period is included. HGB 7.9(L) 11.2 - 15.7 g/dL LAB HEMATOLOGY METHOD 11/20/2024 1:18 AM EDT [facility] HCT 24.8(L) 34.0 - 45.0 % LAB HEMATOLOGY METHOD 11/20/2024 1:18 AM EDT [facility] Blood Venous blood specimen / Unknown Venipuncture / Unknown 11/20/2024 12:57 AM EDT 11/20/2024 1:10 AM EDT Regina Ivey MD LAB BLOOD ORDERABLES Final Resu lt [facility] [address] [place] [address] * (ABNORMAL) CBC and Differential (11/20/2024 12:57 AM EDT) Only the most recent of18 resultswithin the time period is included. WBC Count 5.47 3.70 - 10.30 10*3/uL LAB HEMATOLOGY METHOD 11/20/2024 2:38 AM EDT [facility] RBC Count 2.71(L) 3.90 - 5.20 10*6/uL LAB HEMATOLOGY METHOD 11/20/2024 2:38 AM EDT [facility] HGB 7.9(L) 11.2 - 15.7 g/dL LAB HEMATOLOGY METHOD 11/20/2024 2:38 AM EDT [facility] HCT 24.8(L) 34.0 - 45.0 % LAB HEMATOLOGY METHOD 11/20/2024 2:38 AM EDT [facility] Platelet Count 44(L) 155 - 369 10*3/uL LAB HEMATOLOGY METHOD 11/20/2024 2:38 AM EDT [facility] MCV 92 79 - 98 fL LAB HEMATOLOGY METHOD 11/20/2024 2:38 AM EDT [facility] Comment:Results inconsistent with previous lab findings. MCH 29.2 26.0 - 32.0 pg LAB HEMATOLOGY METHOD 11/20/2024 2:38 AM EDT [facility] MCHC 31.9 30.7 - 35.5 g/dL LAB HEMATOLOGY METHOD 11/20/2024 2:38 AM EDT [facility] RDW 20.9(H) 11.5 - 14.5 % LAB HEMATOLOGY METHOD 11/20/2024 2:38 AM EDT [facility] MPV 10.3 8.8 - 12.5 fL LAB HEMATOLOGY METHOD 11/20/2024 2:38 AM EDT [facility] nRBC 1.3(H) <=0.0 per 100 WBCs LAB HEMATOLOGY METHOD 11/20/2024 2:38 AM EDT [facility] Differential Type Automated LAB HEMATOLOGY METHOD 11/20/2024 2:38 AM EDT [facility] Neutrophils % 70 % LAB HEMATOLOGY METHOD 11/20/2024 2:38 AM EDT [facility] Lymphocytes % 14 % LAB HEMATOLOGY METHOD 11/20/2024 2:38 AM EDT [facility] Monocytes % 7 % LAB HEMATOLOGY METHOD 11/20/2024 2:38 AM EDT [facility] Eosinophils % 3 % LAB HEMATOLOGY METHOD 11/20/2024 2:38 AM EDT [facility] Basophils % 1 % LAB HEMATOLOGY METHOD 11/20/2024 2:38 AM EDT [facility] Immature Granulocytes % 5 % LAB HEMATOLOGY METHOD 11/20/2024 2:38 AM EDT [facility] Neutrophils Absolute 3.82 1.60 - 6.10 10*3/uL LAB HEMATOLOGY METHOD 11/20/2024 2:38 AM EDT [facility] Lymphocytes Absolute 0.75(L) 1.20 - 3.90 10*3/uL LAB HEMATOLOGY METHOD 11/20/2024 2:38 AM EDT [facility] Monocytes Absolute 0.39 0.30 - 0.90 10*3/uL LAB HEMATOLOGY METHOD 11/20/2024 2:38 AM EDT [facility] Eosinophils Absolute 0.16 0.00 - 0.50 10*3/uL LAB HEMATOLOGY METHOD 11/20/2024 2:38 AM EDT [facility] Basophils Absolute 0.07 0.00 - 0.10 10*3/uL LAB HEMATOLOGY METHOD 11/20/2024 2:38 AM EDT [facility] Immature Granulocytes Absolute 0.28(H) 0.00 - 0.06 10*3/uL LAB HEMATOLOGY METHOD 11/20/2024 2:38 AM EDT [facility] Blood Venous blood specimen / Unknown Venipuncture / Unknown 11/20/2024 12:57 AM EDT 11/20/2024 1:10 AM EDT Narrative [facility] - 11/20/2024 2:38 AM EDT Therapeutic decision making should be based on absolute values, rather than percentages. us Regina Ivey MD LAB BLOOD ORDERABLES Final Resu lt [facility] [address] [place] [address] * (ABNORMAL) Phosphorus, Plasma (11/20/2024 12:57 AM EDT) Only the most recent of6 resultswithin the time period is included. Phosphorus, Plasma 2.1(L) 2.5 - 4.5 mg/dL 11/20/2024 1:39 AM EDT [facility] Blood Venous blood specimen / Unknown Venipuncture / Unknown 11/20/2024 12:57 AM EDT 11/20/2024 1:10 AM EDT us Regina Ivey MD LAB BLOOD ORDERABLES Final Resu lt Performing Organization Address City/[facility] Co de Phone Number [facility] [address] [place] [address] * (ABNORMAL) Magnesium, Plasma (11/20/2024 12:57 AM EDT) Only the most recent of14 resultswithin the time period is included. Magnesium, Plasma 1.7(L) 1.9 - 2.4 mg/dL 11/20/2024 1:39 AM EDT [facility] Blood Venous blood specimen / Unknown Venipuncture / Unknown 11/20/2024 12:57 AM EDT 11/20/2024 1:10 AM EDT Regina Ivey MD LAB BLOOD ORDERABLES Final Resu lt Performing Organization Address [facility] Co de Phone Number [facility] [address] [place] [address] * Wilbur auris Surveillance by PCR (11/19/2024 7:58 PM EDT) Only the most recent of2 resultswithin the time period is included. Pathologist [facility] Wilbur auris PCR Result Not Detected Not Detected 11/20/2024 1:19 PM EDT [facility] Swab (Axilla and Groin) Non-blood Collection / Unknown 11/19/2024 7:58 PM EDT 11/19/2024 8:33 PM EDT Narrative [facility] - 11/20/2024 1:19 PM EDT This PCR assay was developed and its performance characteristics determined by [facility] as appropriate for clinical purposes. This assay has not been cleared or approved by the FDA, but is performed in a CLIA regulated laboratory that is qualified to perform high-complexity testing. us Regina Ivey MD LAB MICROBIOLOGY - GENERAL BENNETT NAYAK Final Result Performing Organization Address [facility] Co de Phone Number [facility] [address] [place] [address] * Lactate, venous (11/19/2024 3:59 AM EDT) Only the most recent of3 resultswithin the time period is included. Lactate, Venous, Whole Blood 1.6 0.5 - 2.2 mmol/L LAB HEMATOLOGY METHOD 11/19/2024 4:08 AM EDT [facility] Blood Venous blood specimen / Unknown Venipuncture / Unknown 11/19/2024 3:59 AM EDT 11/19/2024 4:07 AM EDT us Jose David Ponce MD LAB BLOOD ORDERABLES Final Resu lt [facility] [address] [place] [address] * Urine Meek Panel (11/19/2024 3:37 AM EDT) Only the most recent of3 resultswithin the time period is included. Extra Reflex urine culture not indicated 11/19/2024 12:01 PM EDT [facility] Comment: Previously prelim verified as [...] 3:37 AM EDT 11/19/2024 3:46 AM EDT us Jose David Ponce MD LAB URINE ORDERABLES Final Resu lt [facility] [address] [place] [address] * (ABNORMAL) Urinalysis with reflex microscopic (Culture NOT Included) (11/19/2024 3:37 AM EDT) Only the most recent of4 resultswithin the time period is included. Color, Urine Yellow LAB URINALYSIS - AUTOMATED METHOD 11/19/2024 4:09 AM EDT [facility] Clarity, Urine Clear LAB URINALYSIS - AUTOMATED METHOD 11/19/2024 4:09 AM EDT [facility] Spec Peterson, Urine >1.030(H) 1.005 - 1.030 LAB URINALYSIS - AUTOMATED METHOD 11/19/2024 4:09 AM EDT [facility] pH, Urine 6.0 5.0 - 8.0 LAB URINALYSIS - AUTOMATED METHOD 11/19/2024 4:09 AM EDT [facility] Protein, Urine Negative Negative mg/dL LAB URINALYSIS - AUTOMATED METHOD 11/19/2024 4:09 AM EDT [facility] Glucose, Urine >=1000(A) Negative mg/dL LAB URINALYSIS - AUTOMATED METHOD 11/19/2024 4:09 AM EDT [facility] Ketones, Urine Negative Negative mg/dL LAB URINALYSIS - AUTOMATED METHOD 11/19/2024 4:09 AM EDT [facility] Blood, Urine Negative Negative LAB URINALYSIS - AUTOMATED METHOD 11/19/2024 4:09 AM EDT [facility] Bilirubin, Urine Negative Negative LAB URINALYSIS - AUTOMATED METHOD 11/19/2024 4:09 AM EDT [facility] Urobilinogen, Urine 0.2 0.2 to 1.0 mg/dL LAB URINALYSIS - AUTOMATED METHOD 11/19/2024 4:09 AM EDT [facility] Leukocytes, Urine Negative Negative LAB URINALYSIS - AUTOMATED METHOD 11/19/2024 4:09 AM EDT [facility] Nitrite, Urine Negative Negative LAB URINALYSIS - AUTOMATED METHOD 11/19/2024 4:09 AM T [facility] Urine Urine specimen obtained by clean catch procedure / Unknown Non-blood Collection / Unknown 11/19/2024 3:37 AM EDT 11/19/2024 4:06 AM EDT us Jose David Ponce MD LAB URINE ORDERABLES Final Resu lt Performing Organization Address [facility] Co de Phone Number [facility] [address] [place] [address] * (ABNORMAL) Iron & Total Iron Binding Capacity, Plasma (Includes Transferrin) (11/19/2024 12:51 AM EDT) Iron, Plasma 67 30 - 160 ug/dL 11/19/2024 4:08 AM EDT [facility] Transferrin, Plasma 182(L) 200 - 360 mg/dL 11/19/2024 4:08 AM EDT [facility] Total Iron Binding Capacity, Plasma 228(L) 240 - 450 ug/mL 11/19/2024 4:08 AM EDT [facility] Transferrin Saturation 29 14 - 50 % 11/19/2024 4:08 AM EDT [facility] Blood Venous blood specimen / Unknown Venipuncture / Unknown 11/19/2024 12:51 AM EDT 11/19/2024 12:53 AM EDT us Regina Ivey MD LAB BLOOD ORDERABLES Final Resu lt Performing Organization Address [facility] de Phone Number [facility] [address] [place] [address] * Anti Xa Level Unfractionated Heparin (11/19/2024 12:51 AM EDT) Only the most recent of2 resultswithin the time period is included. Anti Xa Level Unfractionated Heparin <0.11 <1.00 IU/mL 11/19/2024 1:10 AM EDT [facility] Blood Venous blood specimen / Unknown Venipuncture / Unknown 11/19/2024 12:51 AM EDT 11/19/2024 12:53 AM EDT Narrative [facility] - 11/19/2024 1:10 AM EDT Therapeutic Range: UFH Full Dose and ACS/MD protocols*: 0.30 - 0.70 IU/mL UFH Low Dose protocol*: 0.25 - 0.50 IU/mL UFH prophylaxis: Not established us Jose David Ponce MD LAB BLOOD ORDERABLES Final Resu lt [facility] [address] [place] [address] * (ABNORMAL) CMP (11/19/2024 12:51 AM EDT) Only the most recent of11 resultswithin the time period is included. Glucose, Plasma 130(H) 74 - 99 mg/dL 11/19/2024 1:23 AM EDT [facility] BUN, Plasma 19 8 - 23 mg/dL 11/19/2024 1:23 AM EDT [facility] Creatinine, Plasma 1.08 0.60 - 1.10 mg/dL 11/19/2024 1:23 AM EDT [facility] BUN/Creatinine Ratio 18 11/19/2024 1:23 AM EDT [facility] Sodium, Plasma 136 136 - 145 mmol/L 11/19/2024 1:23 AM EDT [facility] Potassium, Plasma 3.4(L) 3.6 - 4.9 mmol/L 11/19/2024 1:23 AM EDT [facility] Chloride, Plasma 99 97 - 107 mmol/L 11/19/2024 1:23 AM EDT [facility] CO2, Plasma 23 22 - 29 mmol/L 11/19/2024 1:23 AM EDT [facility] Anion Gap 14 6 - 16 mmol/L 11/19/2024 1:23 AM EDT [facility] Total Calcium, Plasma 9.1 8.9 - 10.2 mg/dL 11/19/2024 1:23 AM EDT [facility] Total Protein 6.4 6.3 - 7.9 g/dL 11/19/2024 1:23 AM EDT [facility] Albumin, Plasma 3.5 3.5 - 5.2 g/dL 11/19/2024 1:23 AM EDT [facility] AST, Plasma 12 10 - 35 U/L 11/19/2024 1:23 AM EDT [facility] ALT, Plasma 19 10 - 35 U/L 11/19/2024 1:23 AM EDT [facility] Alkaline Phosphatase, Plasma 99 46 - 142 U/L 11/19/2024 1:23 AM EDT [facility] Total Bilirubin, Plasma 0.7 0.2 - 1.1 mg/dL 11/19/2024 1:23 AM EDT [facility] eGFRcr 57.8 mL/min/1.7 3m*2 11/19/2024 1:23 AM EDT [facility] Comment:Reported eGFRcr in m L/min/1.73m2 is based the CKD-EPI 2020 equation that does not use a race coefficient. Blood Venous blood specimen / Unknown Venipuncture / Unknown 11/19/2024 12:51 AM EDT 11/19/2024 12:53 AM EDT us Jose David Ponce MD LAB BLOOD ORDERABLES Final Resu lt [facility] [address] [place] [address] * CT MSK OUTSIDE IMAGES (11/18/2024 8:50 PM EDT) Anatomical Region Laterality Modality Computed Tomogra phy 11/18/2024 8:50 PM EDT us External Provider IMG CT PROCEDURES Final Result * CT OUTSIDE IMAGES (11/18/2024 8:38 PM EDT) Only the most recent of5 resultswithin the time period is included. Anatomical Region Laterality Modality Computed Tomogra phy 11/18/2024 8:38 PM EDT us Nuria RAMOS IMG CT PROCEDURES Final Resu lt * XR Knee Left 3 Views (11/16/2024 [...] XR PROCEDURES Final Resul t * XR Hand 3+ Views Left (11/16/2024 [...] Resistant Organisms Isolated 11/18/2024 9:10 AM EDT [facility] Swab (Nares and Carole Rectal) Non-blood Collection / Unknown 11/16/2024 1:41 AM EDT 11/16/2024 7:14 AM EDT Narrative [facility] - 11/18/2024 9:10 AM EDT This test was developed and its performance characteristics determined by the [facility]. Although the media is FDA-approved, it is not FDA-approved for all specimen types submitted. The FDA has determined that such clearance or approval is not necessary. This test is used for surveillance purposes. It should not be regarded as investigational or for research. The [facility] is certified under the Clinical Laboratory Improvement Amendments of 1988 (CLIA-88) as qualified to perform high complexity clinical laboratory testing. us Giovany Vance MD LAB MICROBIOLOGY - GENERAL O RDERABLES Final Result Performing Organization Address [facility] [place] [address] * Urinalysis Microscopic Examination (11/16/2024 1:14 AM EDT) Urine Urine specimen obtained by clean catch procedure / Unknown Non-blood Collection / Unknown 11/16/2024 1:14 AM EDT 11/16/2024 1:21 AM EDT us Ashu Ortiz MD LAB URINE ORDERABLES Final Result Performing Organization Address [facility] [place] [address] * Drug Abuse Screen, Urine (11/16/2024 1:14 AM EDT) Amphetamine Screen Urine Negative Cutoff: 500 ng/mL 11/16/2024 1:42 AM EDT [facility] Benzodiazepines Screen Urine Negative Cutoff: 200 ng/mL 11/16/2024 1:42 AM EDT [facility] Cannabinoid Screen Urine Negative Cutoff: 50 ng/mL 11/16/2024 1:42 AM EDT [facility] Cocaine Screen Urine Negative Cutoff: 300 ng/mL 11/16/2024 1:42 AM EDT [facility] Barbiturate Screen Urine Negative Cutoff: 200 ng/mL 11/16/2024 1:42 AM EDT [facility] Opiate Screen Urine Negative Cutoff: 300 ng/mL 11/16/2024 1:42 AM EDT [facility] Methadone Screen Urine Negative Cutoff: 300 ng/mL 11/16/2024 1:42 AM EDT [facility] Buprenorphine Screen Urine Negative Cutoff: 10 ng/mL 11/16/2024 1:42 AM EDT [facility] Fentanyl Screen Urine Negative Cutoff: 1 ng/mL 11/16/2024 1:42 AM EDT [facility] Oxycodone Screen Urine Negative Cutoff: 100 ng/mL 11/16/2024 1:42 AM EDT [facility] Urine Urine specimen obtained by clean catch procedure / Unknown Non-blood Collection / Unknown 11/16/2024 1:14 AM EDT 11/16/2024 1:21 AM EDT us Ashu Ortiz MD LAB URINE ORDERABLES Final Result [facility] [address] [place] [address] * CT Venogram Head (11/15/2024 9:21 PM EDT) Only the most recent of2 [...] 10:08 PM Final report signed by Abhilash aCstorena MD on 11/15/2024 10:22 PM Narrative 11/15/2024 [...] Total DLP (Dose-Length Product): 1926.17 mGy.cm (accession [id number]), 1926.17 mGy.cm (accession [id number]). Please note: The reported value represents the [...] Total DLP (Dose-Length Product): 1926.17 mGy.cm (accession [id number]),1926.17 mGy.cm (accession [id number]). Please note: The reported valuerepresents the total [...] Castorena MD on 11/15/2024 10:22 PM us Ashu Ortiz MD IMG CT PROCEDURES Final Res ult * CT Head wo IV Contrast (11/15/2024 9:21 PM EDT) Only the most recent of4 resultswithin the time period is included. Anatomical [...] Total DLP (Dose-Length Product): 1926.17 mGy.cm (accession [id number]), 1926.17 mGy.cm (accession [id number]). Please note: The reported value represents the [...] Total DLP (Dose-Length Product): 1926.17 mGy.cm (accession [id number]),1926.17 mGy.cm (accession [id number]). Please note: The reported valuerepresents the total [...] Abhilash Castorena MD on 11/15/2024 10:22 PM Ashu Ortiz MD IMG CT PROCEDURES Final Res ult * (ABNORMAL) Trauma shock panel blood gas (11/15/2024 8:06 PM EDT) pH, Venous 7.39 7.32 - 7.43 LAB HEMATOLOGY METHOD 11/15/2024 8:21 PM EDT [facility] Bicarbonate, Calculated, Venous 29(H) 22 - 26 mmol/L LAB HEMATOLOGY METHOD 11/15/2024 8:21 PM EDT [facility] Base Excess, Venous 3.2(H) -2.0 - 3.0 mmol/L LAB HEMATOLOGY METHOD 11/15/2024 8:21 PM EDT [facility] Lactate, Venous, Whole Blood 1.8 0.5 - 2.2 mmol/L LAB HEMATOLOGY METHOD 11/15/2024 8:21 PM EDT [facility] Blood Venous blood specimen / Unknown Venipuncture / Unknown 11/15/2024 8:06 PM EDT 11/15/2024 8:20 PM EDT Ashu Ortiz MD LAB BLOOD ORDERABLES Final Result [facility] [address] [place] [address] * Ethyl Alcohol Plasma (11/15/2024 6:51 PM EDT) Ethanol Plasma <10 <10 mg/dL 11/15/2024 7:19 PM EDT [facility] Blood Venous blood specimen / Unknown Venipuncture / Unknown 11/15/2024 6:51 PM EDT 11/15/2024 6:56 PM EDT Narrative [facility] - 11/15/2024 7:19 PM EDT Enzymatic Assay: Performed on Nayeli Linnette. Ashu Ortiz MD LAB BLOOD ORDERABLES Final Result Performing Organization Address City/[facility]/ZIP Co de Phone Number [facility] [address] [place] [address] * APTT (PTT) (11/15/2024 6:51 PM EDT) aPTT 28 25 - 35 sec 11/15/2024 7:14 PM EDT [facility] Blood Venous blood specimen / Unknown Venipuncture / Unknown 11/15/2024 6:51 PM EDT 11/15/2024 6:56 PM EDT Ashu Ortiz MD LAB BLOOD ORDERABLES Final Result Performing Organization Address City/[facility] Co de Phone Number [facility] [address] [place] [address] * (ABNORMAL) PT-INR (11/15/2024 6:51 PM EDT) Only the most recent of4 resultswithin the time period is included. Prothrombin Time 19.5(H) 12.0 - 14.3 sec 11/15/2024 7:14 PM EDT [facility] INR 1.7(H) 0.9 - 1.1 11/15/2024 7:14 PM EDT [facility] Blood Venous blood specimen / Unknown Venipuncture / Unknown 11/15/2024 6:51 PM EDT 11/15/2024 6:56 PM EDT Narrative [facility] - 11/15/2024 7:14 PM EDT OPTIMAL INR RANGES FOR PATIENT ON ORAL ANTICOAGULANT THERAPY Prevention of venous thromboembolism INR 2.0 to 3.0 In patients with heart disease: Atrial fibrillation INR 2.0 to 3.0 Valvular heart disease INR 2.0 to 3.0 Tissue heart valves INR 2.0 to 3.0 Mechanical prosthetic valves INR 2.5 to 3.5 Prevention of recurrent MD INR 2.5 to 3.5 Ashu Ortiz MD LAB BLOOD ORDERABLES Final Result [facility] [address] [place] [address] * Test Qualitative Plasma (11/15/2024 6:51 PM EDT) Test Negative Negative 11/15/2024 7:47 PM EDT [facility] Blood Venous blood specimen / Unknown Venipuncture / Unknown 11/15/2024 6:51 PM EDT 11/15/2024 6:56 PM EDT Narrative [facility] - 11/15/2024 7:47 PM EDT Reference Range: Males and non- females: Negative. Ashu Ortiz MD LAB BLOOD ORDERABLES Final Result [facility] [address] [place] [address] * Gold Top (11/15/2024 6:41 PM EDT) Pathologist [facility] Extra Hold for add-ons 11/15/2024 9:01 PM EDT [facility] Comment:Auto resulted. Blood Venous blood specimen / Unknown 11/15/2024 6:41 PM EDT 11/15/2024 6:56 PM EDT Ashu Ortiz MD LAB BLOOD ORDERABLES Final Result [facility] [address] [place] [address] * XR OUTSIDE IMAGES (11/15/2024 2:42 PM EDT) Anatomical Region Laterality Modality Radiographic Carolyne ging 11/15/2024 2:42 PM EDT Regina Katz CAT WAGON OPERATOR IMG XR PROCEDURES Final Res ult * XR MSK OUTSIDE IMAGES (11/15/2024 2:42 PM EDT) Only the most recent of3 resultswithin the time period is included. Anatomical Region Laterality Modality Radiographic Carolyne ging 11/15/2024 2:42 PM EDT us Regina Katz CAT WAGON OPERATOR IMG XR PROCEDURES Final Res ult * CT NEURO OUTSIDE IMAGES (11/15/2024 2:38 PM EDT) Anatomical Region Laterality Modality Computed Tomogra phy 11/15/2024 2:38 PM EDT us Regina Katz CAT WAGON OPERATOR IMG CT PROCEDURES Final Res ult * Rad Onc Aria Course Summary (11/07/2024 [...] 11/07/2024 2:16 PM EDT Physician Radiation Oncology MD RADIATION [...] 12:4 0 PM EDT Physician Radiation Oncology RADIATION ONCOLO GY ORDERABLES Final Result Performing Organization Address City/State/[facility] Co de Phone Number [facility] * Rad Onc Aria [...] ONCOLOGY * Rad Onc Aria Session Summary (10/31/2024 [...] LAB HEMATOLOGY METHOD 10/31/2024 2:12 AM EDT [facility] Polychromasia Slight LAB HEMATOLOGY METHOD 10/31/2024 2:12 AM EDT [facility] RBC Morphology Slide Reviewed LAB HEMATOLOGY METHOD 10/31/2024 2:12 AM EDT [facility] Teardrop Cells Present LAB HEMATOLOGY METHOD 10/31/2024 2:12 AM EDT [facility] Platelet Estimate Platelet smear estimate consistent with automated count LAB HEMATOLOGY METHOD 10/31/2024 2:12 AM EDT [facility] Blood Venous blood specimen / Unknown Venipuncture / Unknown 10/31/2024 12:21 AM EDT 10/31/2024 12:55 AM EDT us Robert Amin MD LAB BLOOD ORDERABLES Final Res ult [facility] [address] [place] [address] * (ABNORMAL) Manual Differential (10/31/2024 12:21 AM EDT) Only the most recent of4 resultswithin the time period is included. Blasts % 0 % LAB HEMATOLOGY METHOD 10/31/2024 2:12 AM EDT [facility] Promyelocytes % 0 % LAB HEMATOLOGY METHOD 10/31/2024 2:12 AM EDT [facility] Myelocytes % 3 % LAB HEMATOLOGY METHOD 10/31/2024 2:12 AM EDT [facility] Metamyelocytes % 3 % LAB HEMATOLOGY METHOD 10/31/2024 2:12 AM EDT [facility] Neutrophils % 84 % LAB HEMATOLOGY METHOD 10/31/2024 2:12 AM EDT [facility] Lymphocytes % 6 % LAB HEMATOLOGY METHOD 10/31/2024 2:12 AM EDT [facility] Reactive Lymphocytes % 0 % LAB HEMATOLOGY METHOD 10/31/2024 2:12 AM EDT [facility] Monocytes % 3 % LAB HEMATOLOGY METHOD 10/31/2024 2:12 AM EDT [facility] Eosinophils % 1 % LAB HEMATOLOGY METHOD 10/31/2024 2:12 AM EDT [facility] Basophils % 0 % LAB HEMATOLOGY METHOD 10/31/2024 2:12 AM EDT [facility] Blasts Absolute 0.00 10*3/UL LAB HEMATOLOGY METHOD 10/31/2024 2:12 AM EDT [facility] Promyelocytes Absolute 0.00 10*3/uL LAB HEMATOLOGY METHOD 10/31/2024 2:12 AM EDT [facility] Myelocytes Absolute 0.20 10*3/uL LAB HEMATOLOGY METHOD 10/31/2024 2:12 AM EDT [facility] Metamyelocytes Absolute 0.20 10*3/uL LAB HEMATOLOGY METHOD 10/31/2024 2:12 AM EDT [facility] Neutrophils Absolute 5.62 1.60 - 6.10 10*3/uL LAB HEMATOLOGY METHOD 10/31/2024 2:12 AM EDT [facility] Lymphocytes Absolute 0.40(L) 1.20 - 3.90 10*3/uL LAB HEMATOLOGY METHOD 10/31/2024 2:12 AM EDT [facility] Reactive Lymphocytes Absolute 0.00 10*3/uL LAB HEMATOLOGY METHOD 10/31/2024 2:12 AM EDT [facility] Monocytes Absolute 0.20(L) 0.30 - 0.90 10*3/uL LAB HEMATOLOGY METHOD 10/31/2024 2:12 AM EDT [facility] Eosinophils Absolute 0.07 0.00 - 0.50 10*3/uL LAB HEMATOLOGY METHOD 10/31/2024 2:12 AM EDT [facility] Basophils Absolute 0.00 0.00 - 0.10 10*3/uL LAB HEMATOLOGY METHOD 10/31/2024 2:12 AM EDT [facility] Blood Venous blood specimen / Unknown Venipuncture / Unknown 10/31/2024 12:21 AM EDT 10/31/2024 12:55 AM EDT us Robert Amin MD LAB BLOOD ORDERABLES Final Res ult [facility] [address] [place] [address] * Rad Onc Aria Session Summary (10/28/2024 [...] 8:57 AM EDT Physician Radiation Oncology RADIATION ONCJOSELITO [...] 0 PM EDT Physician Radiation Oncology RADIATION ONCJOSELITO GY ORDERABLES Final Result [facility] * Rad Onc Aria Session Summary (10/26/2024 [...] ORDERABLES Final Result [facility] * PERIPHERAL IV (SMARTFORM LINK) (10/26/2024 12:46 PM EDT) Only the most recent of3 resultswithin the time period is included. Dayana So RN - 10/26/2024 12:46 PM EDT Dayana [...] (Urine) Negative Negative 10/26/2024 7:43 AM EDT [facility] Streptococcus pneumoniae Antigen Result (Urine) Negative Negative 10/26/2024 7:43 AM EDT [facility] Urine Urine specimen obtained by clean catch procedure / Unknown Non-blood Collection / Unknown 10/26/2024 5:37 AM EDT 10/26/2024 6:19 AM EDT us Robert Amin MD LAB MICROBIOLOGY - GENERAL ORD ERABLES Final Result [facility] [address] [place] [address] * (ABNORMAL) Respiratory Culture and Gram Stain (10/26/2024 5:37 AM EDT) Culture Light Growth 10/31/2024 12:21 PM EDT [facility] Culture Pseudomonas aeruginosa MDR, RESEARCH LIBRARIAN(AA) DONAVAN 10/31/2024 12:21 PM EDT [facility] Comment: This isolate has been identified using the FDA Approved mSellerer [place] System Tobramycin no longer reported. If [...] than 25 WBC/LPF(A) 10/31/2024 12:21 PM EDT [facility] Gram Stain Result Greater than 10 Epithelial cells/LPF(A) 10/31/2024 12:21 PM EDT [facility] Gram Stain Result Few Gram negative rods(A) 10/31/2024 12:21 PM EDT [facility] Gram Stain Result Rare Budding yeast(A) 10/31/2024 12:21 PM EDT [facility] Gram Stain Result Few Gram positive rods(A) 10/31/2024 12:21 PM EDT [facility] Gram Stain Result Rare Gram positive cocci in clusters(A) 10/31/2024 12:21 PM EDT [facility] Sputum Coughed sputum specimen / Unknown Non-blood Collection / Unknown 10/26/2024 5:37 AM EDT 10/26/2024 6:19 AM EDT Narrative Organism Antibiotic Method Susceptibility Pseudomonas aeruginosa MDR, RESEARCH LIBRARIAN Aztreonam DONAVAN 8 ug/ml: Susceptible Pseudomonas aeruginosa MDR, RESEARCH LIBRARIAN Cefepime DONAVAN 16 ug/ml: Resistant Pseudomonas aeruginosa MDR, RESEARCH LIBRARIAN Levofloxacin DONAVAN >4 ug/ml: Resistant Pseudomonas aeruginosa MDR, RESEARCH LIBRARIAN Piperacillin/Tazobactam DONAVAN 64/4 ug/ml: Intermediate Pseudomonas aeruginosa MDR, RESEARCH LIBRARIAN Meropenem ETEST 32.0 ug/ml: Resistant Comment:The previously repor samaria component Tobramycin is no longer being reported. us Robert Amin MD LAB MICROBIOLOGY - GENERAL ORD ERABLES Edited Result - Final Performing Organization Address City/[facility]/ZIP Co de Phone Number [facility] [address] [place] [address] * Blood Culture (Aerobic/Anaerobet Set) (10/26/2024 3:03 AM EDT) Only the most recent of4 resultswithin the time period is included. Culture No growth at day 5 10/31/2024 5:01 AM EDT [facility] Blood Structure of left hand / Unknown Venipuncture / Unknown 10/26/2024 3:03 AM EDT 10/26/2024 4:58 AM EDT us West Bobby MD LAB MICROBIOLOGY - GENE [place] [address] * Methicillin Resistant Staphylococcus aureus (MRSA) by PCR (10/25/2024 6:32 PM EDT) Only the most recent of2 resultswithin the time period is included. Methicillin Resistant Staphylococcus aureus (MRSA) by PCR Not Detected Not Detected 10/25/2024 8:41 PM EDT [facility] Swab Both anterior nares / Unknown Non-blood Collection / Unknown 10/25/2024 6:32 PM EDT 10/25/2024 6:58 PM EDT Narrative [facility] - 10/25/2024 8:41 PM EDT This [...] MICROBIOLOGY - GENERAL ORD ERABLES Final Result [facility] [address] [place] [address] * Rad Onc Aria Session Summary (10/25/2024 [...] Final Result [facility] * (ABNORMAL) Troponin T, High Sensitivity, 2 Hour, Plasma (10/25/2024 1:16 PM EDT) Troponin T, High Sensitivity, 2 Hour 19(H) <14 ng/L 10/25/2024 1:40 PM EDT [facility] Troponin Delta 2 <10 ng/L 10/25/2024 1:40 PM EDT [facility] Troponin Delta Interpretation Not Significant 10/25/2024 1:40 PM EDT [facility] Comment:Not Significant. No acute change in troponin observed between the baseline and 2 hour samples. Blood Venous blood specimen / Unknown Venipuncture / Unknown 10/25/2024 1:16 PM EDT 10/25/2024 1:20 PM EDT us West Bobby MD LAB BLOOD ORDERABLES Fi nal Result [facility] [address] [place] [address] * CT Angio Pulmonary Embolism (10/25/2024 11:02 [...] on 10/25/2024 12:50 PM West Bobby MD IMG CT PROCEDURES Final Result * SARS CoV-2/COVID-19 by PCR - Rapid (10/25/2024 10:42 AM EDT) SARS CoV-2/COVID-1 9 RNA PCR Result Not Detected Not Detected 10/25/2024 12:13 PM EDT [facility] Swab Nasopharyngeal structure / Unknown Non-blood Collection / Unknown 10/25/2024 10:42 AM EDT 10/25/2024 11:16 AM EDT Narrative [facility] - 10/25/2024 12:13 PM EDT This [...] COVID-19. West Bobby MD LAB MICROBIOLOGY - GENE RAL ORDERABLES Final Result [facility] [address] [place] [address] * Nasopharyngeal Respiratory Panel (10/25/2024 10:42 AM EDT) Only the most recent of2 resultswithin the time period is included. Nasopharyngeal Respiratory PCR Interpretation Not Detected for all analytes Not Detected for all analytes 10/25/2024 3:07 PM EDT [facility] Swab Nasopharyngeal structure / Unknown Non-blood Collection / Unknown 10/25/2024 10:42 AM EDT 10/25/2024 11:16 AM EDT Narrative [facility] - 10/25/2024 3:07 PM EDT This [...] Respiratory PCR Panel is performed using the Zventslex instrument. This test is FDA approved for use with Nasopharyngeal swabs only. This test is used for clinical purposes. It should not be regarded as investigational or for research. The [facility] is certified under the Clinical Laboratory Improvement Amendments of 1988 (CLIA-88) as qualified to perform high complexity clinical laboratory testing. West Bobby MD LAB MICROBIOLOGY - [facility] ORDERABLES Final Result [facility] [address] [place] [address] * (ABNORMAL) Troponin now and 120 min (10/25/2024 10:28 AM EDT) Only the most recent of2 resultswithin the time period is included. Pathologist [facility] Troponin T, High Sensitivity, 0 Hour 21(H) <14 ng/L 10/25/2024 10:59 AM EDT [facility] Blood Venous blood specimen / Unknown Venipuncture / Unknown 10/25/2024 10:28 AM EDT 10/25/2024 10:35 AM EDT West Bobby MD LAB BLOOD ORDERABLES Fi nal Result Performing Organization Address City/[facility]/ZIP Co de Phone Number [facility] [address] [place] [address] * (ABNORMAL) BNP (10/25/2024 10:28 AM EDT) Only the most recent of2 resultswithin the time period is included. Pathologist [facility] N-Terminal, PROBNP, Plasma 1,887(H) 0 - 899 pg/mL 10/25/2024 10:59 AM EDT [facility] Blood Venous blood specimen / Unknown Venipuncture / Unknown 10/25/2024 10:28 AM EDT 10/25/2024 10:35 AM EDT West Bobby MD LAB BLOOD ORDERABLES Fi nal Result Performing Organization Address City/[facility] Co de Phone Number [facility] [address] [place] [address] * (ABNORMAL) Blood gas panel, venous (10/25/2024 10:28 AM EDT) [facility] pH, Venous 7.39 7.32 - 7.43 LAB HEMATOLOGY METHOD 10/25/2024 10:32 AM EDT [facility] pCO2, Venous 50 37 - 52 mmHg LAB HEMATOLOGY METHOD 10/25/2024 10:32 AM EDT [facility] pO2, Venous 47(H) 25 - 40 mmHg LAB HEMATOLOGY METHOD 10/25/2024 10:32 AM EDT [facility] SO2, Measured, Venous 79 65 - 80 % LAB HEMATOLOGY METHOD 10/25/2024 10:32 AM EDT [facility] Base Excess, Venous 4.4(H) -2.0 - 3.0 mmol/L LAB HEMATOLOGY METHOD 10/25/2024 10:32 AM EDT [facility] Bicarbonate, Calculated, Venous 30(H) 22 - 26 mmol/L LAB HEMATOLOGY METHOD 10/25/2024 10:32 AM EDT [facility] Hematocrit, Whole Blood 23.3(L) 34.0 - 45.0 % LAB HEMATOLOGY METHOD 10/25/2024 10:32 AM EDT [facility] Sodium, Whole Blood 142 136 - 145 mmol/L LAB HEMATOLOGY METHOD 10/25/2024 10:32 AM EDT [facility] Potassium, Whole Blood 3.9 3.6 - 4.9 mmol/L LAB HEMATOLOGY METHOD 10/25/2024 10:32 AM EDT [facility] Chloride, Whole Blood 101 97 - 107 mmol/L LAB HEMATOLOGY METHOD 10/25/2024 10:32 AM EDT [facility] Glucose, Whole Blood 200(H) 74 - 99 mg/dL LAB HEMATOLOGY METHOD 10/25/2024 10:32 AM EDT [facility] Lactate, Venous, Whole Blood 2.6(H) 0.5 - 2.2 mmol/L LAB HEMATOLOGY METHOD 10/25/2024 10:32 AM EDT [facility] Ionized Calcium, Whole Blood 4.4(L) 4.6 - 5.1 mg/dL LAB HEMATOLOGY METHOD 10/25/2024 10:32 AM EDT [facility] Blood Venous blood specimen / Unknown Venipuncture / Unknown 10/25/2024 10:28 AM EDT 10/25/2024 10:31 AM EDT us West Bobby MD LAB BLOOD ORDERABLES Fi nal Result Performing Organization Address City/State/[facility] Co de Phone Number [facility] [address] [place] [address] * [facility] ED POCUS PROCDOC (10/25/2024 9:51 AM [...] IN CLINIC/BEDSIDE ORDER SOLOMON Final Result * [facility] ED POCUS PROCDOC (10/25/2024 9:51 AM [...] 12:0 6 PM EDT Physician Radiation Oncology MD RADIATION ONCOLO GY ORDERABLES Final Result Performing Organization Address City/[facility]/ZIP Co de Phone Number [facility] * (ABNORMAL) Vancomycin, Trough, [...] - 20.0 ug/mL 10/16/2024 6:34 AM EDT [facility] Blood Venous blood specimen / Unknown Venipuncture / Unknown 10/16/2024 5:49 AM EDT 10/16/2024 6:04 AM EDT Narrative [facility] - 10/16/2024 6:34 AM EDT Therapeutic Trough level: 10-20ug/mL Supra-therapeutic Trough level: >20 ug/mL us Unknown Claudia Cali MD LAB BLOOD ORDERABLES F inal Result [facility] [address] [place] [address] * (ABNORMAL) Vancomycin, Peak, Plasma Please draw ~2 hours after 0600 dose of vancomycin administeredon 10/14/24 finishes infusing. Consider obtaining level via peripheral stick. If peripheral stick isnot feasible, please ensure that line is flushed well prio... (10/14/2024 2:33 PM EDT) Vancomycin, Peak, Plasma 9.2(L) 20.0 - 40.0 ug/mL 10/14/2024 3:56 PM EDT [facility] Blood Venous blood specimen / Unknown Venipuncture / Unknown 10/14/2024 2:33 PM EDT 10/14/2024 2:39 PM EDT Narrative [facility] - 10/14/2024 3:56 PM EDT Therapeutic Peak level: 20-40ug/mL Supra-therapeutic Peak level: >40 ug/mL us Hyacinth Perkins MD LAB BLOOD ORDERABLES Final Res ult [facility] [address] [place] [address] * IR Lumbar Puncture (10/14/2024 10:29 AM [...] AM COMPARISON: MR head reviewed from 10/09/24. CALCIMINER: Lisa Romano PA-C SECONDARY VISUAL DESIGN LEAD: Dr. Gaby Ponce CONTRAST: 0 cc MEDICATIONS: [...] AM COMPARISON: MR head reviewed from 10/09/24. CALCIMINER: Lisa Romano PA-C SECONDARY VISUAL DESIGN LEAD: Dr. Gaby Ponce CONTRAST: 0 cc MEDICATIONS: [...] FLUIDS AND STOOLS ORD ERABLES Final Result [facility] [address] [place] [address] * CSF Cell Count w/ Manual Differential (10/14/2024 10:24 AM EDT) Unspun Color, CSF Colorless Colorless LAB HEMATOLOGY METHOD 10/14/2024 12:19 PM EDT [facility] Unspun Clarity, CSF Clear Clear LAB HEMATOLOGY METHOD 10/14/2024 12:19 PM EDT [facility] Spun Color, CSF LAB HEMATOLOGY METHOD 10/14/2024 12:19 PM EDT [facility] Comment:Test Not Indicated Spun Clarity, CSF LAB HEMATOLOGY METHOD 10/14/2024 12:19 PM EDT [facility] Comment:Test Not Indicated Volume CSF 4.0 cc LAB HEMATOLOGY METHOD 10/14/2024 12:19 PM EDT [facility] Tube Number, CSF Tube 4 LAB HEMATOLOGY METHOD 10/14/2024 12:19 PM EDT [facility] Red Blood Cell Count, CSF 0 0 uL uL LAB HEMATOLOGY METHOD 10/14/2024 12:19 PM EDT [facility] Comment:Test performed by ma nual method. Total Nucleated Cell Count, CSF 2 0 - 5 L LAB HEMATOLOGY METHOD 10/14/2024 12:19 PM EDT [facility] Comment:Test performed by ma nual method. Neutrophils %, CSF LAB HEMATOLOGY METHOD 10/14/2024 12:19 PM EDT [facility] Comment:Too few to count Lymphocytes %, CSF LAB HEMATOLOGY METHOD 10/14/2024 12:19 PM EDT [facility] Comment:Too few to count Monocytes/Macro phages %, CSF LAB HEMATOLOGY METHOD 10/14/2024 12:19 PM EDT [facility] Comment:Too few to count Eosinophils %, CSF LAB HEMATOLOGY METHOD 10/14/2024 12:19 PM EDT [facility] Comment:Too few to count Basophils %, CSF LAB HEMATOLOGY METHOD 10/14/2024 12:19 PM EDT [facility] Comment:Too few to count Neutrophils Absolute, CSF LAB HEMATOLOGY METHOD 10/14/2024 12:19 PM EDT [facility] Comment:Too few to count Lymphocytes Absolute, CSF LAB HEMATOLOGY METHOD 10/14/2024 12:19 PM EDT [facility] Comment:Too few to count Monocytes/Macro phages Absolute, CSF LAB HEMATOLOGY METHOD 10/14/2024 12:19 PM EDT [facility] Comment:Too few to count Eosinophils Absolute, CSF LAB HEMATOLOGY METHOD 10/14/2024 12:19 PM EDT [facility] Comment:Too few to count Basophils Absolute, CSF LAB HEMATOLOGY METHOD 10/14/2024 12:19 PM EDT [facility] Comment:Too few to count Cerebrospinal Fluid Lumbar puncture / Unknown Non-blood Collection / Unknown 10/14/2024 10:24 AM EDT 10/14/2024 10:59 AM EDT us Hyacinth Perkins MD LAB BODY FLUIDS AND STOOLS ORD ERABLES Final Result Performing Organization Address City/[facility]/ZIP Co de Phone Number [facility] [address] [place] [address] * Fungal Culture, Cerebrospinal Fluid (CSF) and Emily Ink (10/14/2024 10:24 AM EDT) Culture No Fungal Growth at 3 Weeks 11/04/2024 10:05 AM EDT [facility] Emily Ink No fungal elements seen 11/04/2024 10:05 AM EDT [facility] Cerebrospinal Fluid Lumbar puncture / Unknown Non-blood Collection / Unknown 10/14/2024 10:24 AM EDT 10/14/2024 10:55 AM EDT us Hyacinth Perkins MD LAB MICROBIOLOGY - GENERAL ORD ERABLES Final Result Performing Organization Address City/[facility]/ZIP Co de Phone Number [facility] [address] [place] [address] * Lactate Dehydrogenase Total, Body Fluid (SO) (10/14/2024 10:24 AM EDT) Pathologist [facility] Lactate Dehydrogenase Total, Body Fluid 21 U/L 10/16/2024 12:07 AM EDT [facility] (ALEX) LDH Fluid Source CSF 10/17/19 12:07 AM EDT [facility] ([place]) Cerebrospinal Fluid Non-blood Collection / Unknown 10/14/2024 10:24 AM EDT 10/14/2024 11:01 AM EDT Narrative [facility] (ALEX) - 10/16/2024 12:07 AM EDT INTERPRETIVE INFORMATION: Lactate Dehydrogenase Total, Body Fluid For information on body fluid reference ranges and/or interpretive guidance visit [email or web address]/bodyfluids/ This test was developed and its performance characteristics determined by [facility]. It has not been cleared or approved by the US Food and Drug Administration. This test was performed in a CLIA certified laboratory and is intended for clinical purposes. Performed By: [facility] [address] [place] [address] Semi Driver: Manuel Mas MD, PhD CLIA Number: [id number] Hyacinth Perkins MD LAB REF LAB BLOOD AND FLUID OR D Final Result [facility] ([facility]) [address] [id number] * Meningitis/Encephalitis Panel by PCR (10/14/2024 10:24 AM EDT) Pathologist [facility] Escherichia coli K1 PCR Result Not Detected Not Detected 10/14/2024 3:51 PM EDT [facility] Haemophilus influenzae PCR Result Not Detected Not Detected 10/14/2024 3:51 PM EDT [facility] Listeria monocytogenes PCR Result Not Detected Not Detected 10/14/2024 3:51 PM EDT [facility] Neisseria meningitidis PCR Result Not Detected Not Detected 10/14/2024 3:51 PM EDT [facility] Streptococcus agalactiae PCR Result Not Detected Not Detected 10/14/2024 3:51 PM EDT [facility] Streptococcus pneumoniae PCR Result Not Detected Not Detected 10/14/2024 3:51 PM EDT [facility] Cytomegalovirus (CMV) PCR Result Not Detected Not Detected 10/14/2024 3:51 PM EDT [facility] Enterovirus (EV) PCR Result Not Detected Not Detected 10/14/2024 3:51 PM EDT [facility] Herpes Simplex Virus 1 (HSV-1) PCR Result Not Detected Not Detected 10/14/2024 3:51 PM EDT [facility] Herpes Simplex Virus 2 (HSV-2) PCR Result Not Detected Not Detected 10/14/2024 3:51 PM EDT [facility] Human Herpes Virus 6 (HHV-6) PCR Result Not Detected Presumptive Negative 10/14/2024 3:51 PM EDT [facility] Human Parechovirus (HPeC) PCR Result Not Detected Not Detected 10/14/2024 3:51 PM EDT [facility] Varicella Zoster Virus (VZV) PCR Result Not Detected Not Detected 10/14/2024 3:51 PM EDT [facility] Cryptococcus neoformans/gattii PCR Result Not Detected Not Detected 10/14/2024 3:51 PM EDT [facility] Cerebrospinal Fluid Lumbar puncture / Unknown Non-blood Collection / Unknown 10/14/2024 10:24 AM EDT 10/14/2024 10:55 AM EDT Narrative [facility] - 10/14/2024 3:51 PM EDT [...] MICROBIOLOGY - GENERAL ORD ERABLES Final Result [facility] [address] [place] [id number] * MADINA NELSON DNA BY PCR(CSF) (SO) (10/14/2024 10:24 AM EDT) Madina Nelson PCR CSF Not Detected Not Detected IU/mL 10/15/2024 8:27 PM EDT [facility] (ALEX) Comment: Assay Range: 52 IU/mL to 1.69E+08 IU/mL The limit of quantitation (LOQ) is 52 IU/mL. EBV DNA detected below the LOQ will be reported as Detected:<52 IU/mL. This test was developed and its performance characteristics determined by [facility]. It has not been cleared or approved by the U.S. Food and Drug Administration. Results should be used in conjunction with clinical findings, and should not form the sole basis for a diagnosis or treatment decision. Testing Performed at: [facility] [address] [place] [address], [facility] [address] [place] [address] Pump Erector: Anatoly Turk, PhD [facility] ([facility]) CLIA # [id number] FLAG Interpretation: A = Abnormal, H = High, L = Low Cerebrospinal Fluid Cerebrospinal fluid specimen / Unknown Non-blood Collection / Unknown 10/14/2024 10:24 AM EDT 10/14/2024 11:01 AM EDT Narrative [facility] (ALEX) - 10/15/2024 8:27 PM EDT Release to patient in [facility]->Immediate us Hyacinth Perkins MD LAB BODY FLUIDS AND STOOLS ORD ERABLES Final Result [facility]) * Cryptococcal Antigen, CSF (10/14/2024 10:24 AM EDT) Cryptococcal Antigen Result (CSF) Negative Negative 10/14/2024 3:50 PM EDT [facility] Cerebrospinal Fluid Lumbar puncture / Unknown Non-blood Collection / Unknown 10/14/2024 10:24 AM EDT 10/14/2024 10:55 AM EDT us Hyacinth Perkins MD LAB MICROBIOLOGY - GENERAL ORD ERABLES Final Result [facility] [address] [place] [address] * HUYEN Polyoma Virus Quantitative by PCR, CSF (10/14/2024 10:24 AM EDT) HUYEN POLYOMA VIRUS DNA, QN,CSF Not Detected Not Detected copies/mL 10/15/2024 6:34 PM EDT [facility] (ALEX) Comment: Assay Range: 72 copies/mL to 1.00E+08 copies/mL The limit of quantitation (LOQ) is 72 copies/mL. HUYEN virus DNA detected below the LOQ will be reported as Detected:<72 copies/mL. This test was developed and its performance characteristics determined by [facility]. It has not been cleared or approved by the U.S. Food and Drug Administration. Results should be used in conjunction with clinical findings, and should not form the sole basis for a diagnosis or treatment decision. Testing Performed at: [facility] [address] [place] [address], [place] [address] Pump Erector: Anatoly Turk, PhD [facility] ([facility]) CLIA # [id number] FLAG Interpretation: A = Abnormal, H = High, L = Low Cerebrospinal Fluid Cerebrospinal fluid specimen / Unknown Non-blood Collection / Unknown 10/14/2024 10:24 AM EDT 10/14/2024 11:01 AM EDT Narrative [facility] (ALEX) - 10/15/2024 6:34 PM EDT Release to patient in [facility]->Immediate Hyacinth Perkins MD LAB BODY FLUIDS AND STOOLS ORD ERABLES Final Result [facility]) * Cerebrospinal Fluid (CSF) Culture and Gram Stain (10/14/2024 10:24 AM EDT) Pathologist [facility] Culture No growth at day 4 2024 8:24 AM EDT [facility] Gram Stain No polymorphonuclear leukocytes seen 10/17/2024 8:24 AM EDT [facility] Gram Stain No organisms seen 025 8:24 AM EDT [facility] Cerebrospinal Fluid Lumbar puncture / Unknown Non-blood Collection / Unknown 10/14/2024 10:24 AM EDT 10/14/2024 10:55 AM EDT us Hyacinth Perkins MD LAB MICROBIOLOGY - GENERAL ORD ERABLES Final Result [facility] [address] [place] [address] * CSF Cell Count W/O Diff (10/14/2024 10:24 AM EDT) Unspun Color, CSF Colorless Colorless LAB HEMATOLOGY METHOD 10/14/2024 12:10 PM EDT [facility] Unspun Clarity, CSF Clear Clear LAB HEMATOLOGY METHOD 10/14/2024 12:10 PM EDT [facility] Spun Color, CSF LAB HEMATOLOGY METHOD 10/14/2024 12:10 PM EDT [facility] Comment:Test Not Indicated Spun Clarity, CSF LAB HEMATOLOGY METHOD 10/14/2024 12:10 PM EDT [facility] Comment:Test Not Indicated Volume CSF 3.0 cc LAB HEMATOLOGY METHOD 10/14/2024 12:10 PM EDT [facility] Tube Number, CSF Tube 1 LAB HEMATOLOGY METHOD 10/14/2024 12:10 PM EDT [facility] Total Nucleated Cell Count, CSF 2 0 - 5 L LAB HEMATOLOGY METHOD 10/14/2024 12:10 PM EDT [facility] Comment:Test performed by ma nual method. Red Blood Cell Count, CSF 1 0 uL uL LAB HEMATOLOGY METHOD 10/14/2024 12:10 PM EDT [facility] Comment:Test performed by ma nual method. Cerebrospinal Fluid Lumbar puncture / Unknown Non-blood Collection / Unknown 10/14/2024 10:24 AM EDT 10/14/2024 10:59 AM EDT us Hyacinth Perkins MD LAB BODY FLUIDS AND STOOLS ORD ERABLES Final Result [facility] [address] [place] [address] * West Nile virus, CSF (10/14/2024 10:24 AM EDT) WEST NILE VIRUS AB,IGG,CSF 0.01 <=1.29 IV 10/17/2024 7:33 AM EDT [facility] ([place]EX) WEST NILE VIRUS AB,IGM,CSF 0.00 <=0.89 IV 10/17/2024 7:33 AM EDT [facility] ([facility]) Cerebrospinal Fluid Cerebrospinal fluid specimen / Unknown Non-blood Collection / Unknown 10/14/2024 10:24 AM EDT 10/14/2024 11:01 AM EDT Narrative [facility] (ALEX) - 10/17/2024 7:33 AM EDT [...] members of the Flaviviridae family, such as Penn encephalitis virus, show extensive cross-reactivity with West [...] developed and its performance characteristics determined by [facility]. It has not been cleared or approved [...] members of the Flaviviridae family, such as Penn encephalitis virus, show extensive cross-reactivity with West [...] developed and its performance characteristics determined by [facility]. It has not been cleared or approved by the US Food and Drug Administration. This test was performed in a CLIA certified laboratory and is intended for clinical purposes. Performed By: [facility] [address] [place] [address] Semi Driver: Manuel Mas MD, PhD CLIA Number: [id number] us Hyacinth Perkins MD LAB BLOOD ORDERABLES Final Res ult [employer] (ALEX) [address] [place], [place] [id number] * Protein, CSF (10/14/2024 10:24 AM EDT) Total Protein, CSF 31 15 - 45 mg/dL 10/14/2024 12:15 PM EDT [facility] Cerebrospinal Fluid Lumbar puncture / Unknown Non-blood Collection / Unknown 10/14/2024 10:24 AM EDT 10/14/2024 11:01 AM EDT Narrative [facility] - 10/14/2024 12:15 PM EDT Blood, when present in CSF, invalidates protein. Interpret results in the context of the patient's condition and other laboratory results. us Hyacinth Perkins MD LAB BODY FLUIDS AND STOOLS ORD ERABLES Final Result Performing Organization Address [facility] Co de Phone Number [facility] [address] [place] [address] * (ABNORMAL) Glucose, CSF (10/14/2024 10:24 AM EDT) Glucose, CSF 89(H) 41 - 70 mg/dL 10/14/2024 12:15 PM EDT [facility] Cerebrospinal Fluid Lumbar puncture / Unknown Non-blood Collection / Unknown 10/14/2024 10:24 AM EDT 10/14/2024 11:01 AM EDT Narrative [facility] - 10/14/2024 12:15 PM EDT CSF glucose values should be approximately 60 % of the plasma values and must always be compared with concurrently measured plasma values for adequate clinical interpretation. No reference ranges have been established for pediatric patients. Hyacinth Perkins MD LAB BODY FLUIDS AND STOOLS ORD ERABLES Final Result Performing Organization Address [facility] de Phone Number [facility] [address] [place] [address] * Non-Gynecologic Cytology (10/14/2024 10:24 AM EDT) Case Report Cytology Case: [id number] Authorizing Provider: Hyacinth Perkins MD Collected: 10/14/2024 1024 Ordering Location: [facility] Emergency Department Received: 10/14/2024 1353 Pathologist: Miryam Navarro MD Specimen: Cerebrospinal Fluid, CEREBROSPINAL FLUID 10/17/2024 4:58 PM EDT [facility] Final Diagnosis A. CEREBROSPINAL FLUID: - NO EVIDENCE OF MALIGNANCY. 10/17/2024 4:58 PM EDT [facility] at 1658 EDT Clinical History H/O SCLC, mets to brain 10/17/2024 4:58 PM EDT [facility] Previous Cancer Yes 10/17/2024 4:58 PM EDT [facility] Previous Cancer Primary Site Lung Cancer 10/17/2024 4:58 PM EDT [facility] Gross Description A. CEREBROSPINAL FLUID 8 ml's clear fluid, 3 ml's tube one, 0.5 ml's tube two, 1.5 ml's tube three and 3 ml's tube four processed as thin prep 10/17/2024 4:58 PM EDT [facility] Cerebrospinal Fluid Cerebrospinal fluid specimen / Unknown Non-blood Collection / Unknown 10/14/2024 10:24 AM EDT 10/14/2024 1:53 PM EDT us Hyacinth Perkins MD LAB CYTOLOGY ORDERABLES Final Result [facility] [address] [place] [address] * CT Chest w IV Contrast (10/13/2024 [...] Liseth Woods MD on 10/13/2024 9:09 PM Jamilamoshe Stanford IMG CT PROCEDURES Final Re sult * [...] IMG MRI PROCEDURES Final Re sult * Sodium, urine, random (10/13/2024 2:33 AM EDT) Sodium, Urine 49 mmol/L 10/13/2024 3:10 AM EDT [facility] Urine Urine specimen obtained by clean catch procedure / Unknown Non-blood Collection / Unknown 10/13/2024 2:33 AM EDT 10/13/2024 2:51 AM EDT [facility] URINE ORDERABLES Final Result Performing Organization Address City/[facility]/ZIP Co de Phone Number [facility] [address] [place] [address] * Osmolality, urine (10/13/2024 2:33 AM EDT) Osmolality, Urine 504 50 - 1,200 mOsm/kg 10/13/2024 4:35 AM EDT [facility] Urine Urine specimen obtained by clean catch procedure / Unknown Non-blood Collection / Unknown 10/13/2024 2:33 AM EDT 10/13/2024 2:51 AM EDT Jamila Stanford LAB URINE ORDERABLES Final Result Performing Organization Address City/[facility]/ZIP Co de Phone Number [facility] [address] [place] [address] * Anti Xa Level Low Molecular Weight (10/12/2024 10:37 PM EDT) Only the most recent of2 resultswithin the time period is included. Anti Xa Level Low Molecular Weight Heparin 1.20 <2.00 IU/mL 10/12/2024 11:52 PM EDT [facility] Blood Venous blood specimen / Unknown Venipuncture / Unknown 10/12/2024 10:37 PM EDT 10/12/2024 10:43 PM EDT Narrative [facility] - 10/12/2024 11:52 PM EDT Therapeutic Range: LMWH enoxaparin 1mg/kg/dose, 12hrs - peak (3-5 hours after dose): 0.5 - 1.0 IU/mL LMWH enoxaparin 1.5mg/kg/dose, 24hrs - peak (3-5 hours after dose): 1.0 - 2.0 IU/mL LMWH enoxaparin prophylaxis: Not established us Sanya Ledezma MD LAB BLOOD ORDERABLES Final Result [facility] [address] [place] [address] * CT Abdomen Pelvis w IV Contrast [...] 0.69(H) <0.09 ng/mL 10/12/2024 5:39 PM EDT [facility] Blood Venous blood specimen / Unknown Venipuncture / Unknown 10/12/2024 4:51 PM EDT 10/12/2024 5:09 PM EDT Narrative [facility] - 10/12/2024 5:39 PM EDT [...] predict 28 day mortality risk. Please consult [email or web address] for more information. Test performed at [facility] LAB BLOOD ORDERABLES Gracia l Result Performing Organization Address [facility]/ZIP Co de Phone Number [facility] [address] [place] [address] * (ABNORMAL) C-Reactive protein (10/12/2024 4:51 PM EDT) CRP, Plasma 90.1(H) <=8.0 mg/L 10/12/2024 5:38 PM EDT [facility] Blood Venous blood specimen / Unknown Venipuncture / Unknown 10/12/2024 4:51 PM EDT 10/12/2024 5:09 PM EDT Narrative [facility] - 10/12/2024 5:38 PM EDT This CRP test is appropriate for assessment of infection, systemic inflammation and/or tissue injury. To assess cardiovascular disease risk order high sensitivity CRP (CRPH). us [facility] LAB BLOOD ORDERABLES Gracia l Result Performing Organization Address City/[facility]/ZIP Co de Phone Number [facility] [address] [place] [address] * (ABNORMAL) Osmolality (10/12/2024 4:51 PM EDT) Osmolality, Serum 279(L) 280 - 301 mOsm/Kg 10/13/2024 12:14 AM EDT [facility] Blood Venous blood specimen / Unknown Venipuncture / Unknown 10/12/2024 4:51 PM EDT 10/12/2024 5:09 PM EDT Jamila Stanford DO LAB BLOOD ORDERABLES Final Result [facility] [address] [place] [address] * (ABNORMAL) Caris MD Cancer Seek Hybrid??? + IHCs and Other Tests by Tumor Type (10/05/2024 8:54 AM EDT) [employer] PD-L1 (22C3) Negative 2024 8:15 PM EDT [facility] Genomic Loss of Heterozygosity - [place]ome Low 4% 10/16/2024 8:15 PM EDT [facility] Microsatellite Instability - Exome Stable 10/16/2024 8:15 PM EDT [facility] Tumor Mutational Colstrip - Exome High 11 per Mb 10/16/2024 8:15 PM EDT [facility] Her2/Megan Negative 10/16/2024 8:15 PM EDT [employer] HLA-A - [place]ome A*02:01,A*24 :02 10/16/2024 8:15 PM EDT [employer] HLA-B - [place] B*08:01,B*39 :06 10/16/2024 8:15 PM EDT [employer] HLA-C - [place] C*07:01,C*07 :02 10/16/2024 8:15 PM EDT [facility] Tissue Non-blood Collection / Unknown 10/05/2024 8:54 AM EDT 10/05/2024 8:54 AM EDT Narrative This result has genomic variants that were not included in this document. Satnam Dunne MD LAB MOL DX NO SOURCE Fi nal Result [facility] [id number] [place] [address], * TSH reflex FT4 (10/04/2024 9:43 AM EDT) Thyroid Stimulating Hormone, Plasma 0.90 0.40 - 4.20 uIU/mL 10/04/2024 10:29 AM EDT [facility] Blood Venous blood specimen / Unknown Venipuncture / Unknown 10/04/2024 9:43 AM EDT 10/04/2024 9:55 AM EDT us Satnam Dunne MD LAB BLOOD ORDERABLES Fi nal Result [facility] [address] [place] [address] * Surgical Pathology Exam (09/05/2024 8:29 AM EDT) Case Report Surgical Pathology Case: [id number] Authorizing Provider: Abhilash Bangura MD Collected: 09/05/2024 0829 Ordering Location: [facility] Received: 09/05/2024 0840 Pathologist: Mali Benton MD Specimens: A) - Brain, Sonopet Contents B) - Brain, Brain Tumor 09/06/2024 2:24 PM EDT [facility] Final Diagnosis BRAIN, RESECTION OF MASS AND SONOPET CONTENTS (A, B): - METASTATIC CARCINOMA, MORPHOLOGICALLY COMPATIBLE WITH KNOWN SMALL CELL CARCINOMA 09/06/2024 2:24 PM EDT [facility] at 1424 EDT Tumor Blocks Tumor blocks: B1-3 08/17 2:24 PM EDT [facility] Tumor Adequacy for Ancillary Testing Adequate Tissue Present 09/06/2024 2:24 PM EDT [facility] Clinical Information Brain mass [G93.89] Per [...] abdomen or pelvis.... 09/06/2024 2:24 PM EDT [facility] Gross Description A. SONOPET CONTENTS Received [...] in cassettes B1-B3. Cold Time: 7m Vonnie Stephens 09/06/2024 2:24 PM EDT [facility] Note: A resident was involved in the service. I attest I examined the relevant preparations for the specimens and confirmed the diagnosis or interpretation. 09/06/2024 2:24 PM EDT [facility] Tissue Brain structure / Unknown 09/05/2024 8:29 AM EDT 09/05/2024 8:40 AM EDT Comment:Pre-op diagnosis: Brain mass [G93.89] Tissue specimen (specimen) Brain structure / Unknown 09/05/2024 8:33 AM EDT 09/05/2024 8:40 AM EDT Comment:Pre-op diagnosis: Brain mass [G93.89] Abhilash Bangura MD LAB PATHOLOGY ORDERABLES Final Result [facility] [address] [place] [address] * UT AN ELECTIVE ENDOTRACHEAL AIRWAY, PB ANESTHESIA PLACEHOLDER [...] MD ANESTHESIA ORDERABLES Final Resu lt * MR Head w IV Contrast (09/04/2024 [...] on 09/05/2024 8:50 AM Zoraida Herbert MD IM MRI PROCEDURES Final Resu lt * TSH (09/02/2024 3:25 AM EDT) Thyroid Stimulating Hormone, Plasma 0.67 0.40 - 4.20 uIU/mL 09/02/2024 4:29 AM EDT [facility] Blood Venous blood specimen / Unknown Venipuncture / Unknown 09/02/2024 3:25 AM EDT 09/02/2024 3:52 AM EDT Zoraida Herbert MD LAB BLOOD ORDERABLES Final Re sult Performing Organization Address [facility]/ZIP Co de Phone Number [facility] [address] [place] [address] * (ABNORMAL) Hemoglobin A1c (09/02/2024 3:25 AM EDT) Hemoglobin A1c 6.3(H) <5.7 % 09/02/2024 6:18 AM EDT [facility] Blood Venous blood specimen / Unknown Venipuncture / Unknown 09/02/2024 3:25 AM EDT 09/02/2024 3:56 AM EDT Narrative [facility] - 09/02/2024 6:18 AM EDT HA1C Interpretive Data: Diagnosis of Diabetes: Diabetic > or = 6.5% Pre-diabetic 5.7 to 6.4% Non-diabetic < or = 5.6% Glycemic Targets for Type I and Type II Diabetics: Non- Adults <7.0% Adults <6.0% Children and Adolescents <7.5% Source: [place] [employer]. Standards of medical care in diabetes,2017. Diabetes Care.2017:40 (suppl 1):S1-S135. Zoraida Herbert MD LAB BLOOD ORDERABLES Final Re sult Performing Organization Address City/[facility] [place]/ZIP Co de Phone Number [facility] [address] [place] [address] * (ABNORMAL) Renal Function Panel, Plasma (09/02/2024 3:25 AM EDT) Glucose, Plasma 249(H) 74 - 99 mg/dL 09/02/2024 4:29 AM EDT [facility] BUN, Plasma 15 8 - 23 mg/dL 09/02/2024 4:29 AM EDT [facility] Creatinine, Plasma 0.75 0.60 - 1.10 mg/dL 09/02/2024 4:29 AM EDT [facility] BUN/Creatinine Ratio 20 09/02/2024 4:29 AM EDT [facility] Sodium, Plasma 139 136 - 145 mmol/L 09/02/2024 4:29 AM EDT [facility] Potassium, Plasma 3.7 3.6 - 4.9 mmol/L 09/02/2024 4:29 AM EDT [facility] Chloride, Plasma 103 97 - 107 mmol/L 09/02/2024 4:29 AM EDT [facility] CO2, Plasma 23 22 - 29 mmol/L 09/02/2024 4:29 AM EDT [facility] Anion Gap 13 6 - 16 mmol/L 09/02/2024 4:29 AM EDT [facility] Total Calcium, Plasma 8.9 8.9 - 10.2 mg/dL 09/02/2024 4:29 AM EDT [facility] Phosphorus, Plasma 2.3(L) 2.5 - 4.5 mg/dL 09/02/2024 4:29 AM EDT [facility] Albumin, Plasma 3.7 3.5 - 5.2 g/dL 09/02/2024 4:29 AM EDT [facility] eGFRcr 89.6 mL/min/1.7 3m*2 09/02/2024 4:29 AM EDT [facility] Comment:Reported eGFRcr in m L/min/1.73m2 is based the CKD-EPI 2020 equation that does not use a race coefficient. Blood Venous blood specimen / Unknown Venipuncture / Unknown 09/02/2024 3:25 AM EDT 09/02/2024 3:52 AM EDT us Zoraida Herbert MD LAB BLOOD ORDERABLES Final Re sult [facility] [address] [place] [address] * (ABNORMAL) Lipid panel (09/02/2024 3:25 AM EDT) Pathologist [facility] Cholesterol, Plasma 128 <200 mg/dL 09/02/2024 4:29 AM EDT [facility] Comment: Cholesterol Reference Range (age >17 years): Desirable <200 mg/dL Borderline 200 to 239 mg/dL Undesirable >239 mg/dL HDL 46(L) >=50 mg/dL 09/02/2024 4:29 AM EDT [facility] Comment: HDL Cholesterol Reference Ranges (age >17 years): Female, acceptable > or = 50 mg/dL Male, acceptable > or = 40 mg/dL Triglycerides, Plasma 67 <150 mg/dL 09/02/2024 4:29 AM EDT [facility] Comment: Triglyceride Reference Range (age >17 years): Desirable: <150 mg/dL Borderline high: 150 to 199 mg/dL High: 200 to 499 mg/dL Very high: >499 mg/dL Increased risk of pancreatitis: >1000 mg/dL Cholesterol/HDL Ratio 3 09/02/2024 4:29 AM EDT [facility] LDL, Calculated 68 <100 mg/dL 4:29 AM EDT [facility] Comment: LDL Cholesterol Reference Range (age [...] 12 hours? Unknown 09/02/2024 4:29 AM EDT [facility] Blood Venous blood specimen / Unknown Venipuncture / Unknown 09/02/2024 3:25 AM EDT 09/02/2024 3:52 AM EDT us Zoraida Herbert MD LAB BLOOD ORDERABLES Final Re sult [facility] [address] [place] [address] * MR Venogram Head w IV Contrast [...] MRI PROCEDURES Final Resu lt * CT Lumbar Spine wo IV Contrast [...] Total DLP (Dose-Length Product): 3123.65 mGy.cm (accession [id number]), 3123.65 mGy.cm (accession [id number]). Please note: The reported value represents the [...] Total DLP (Dose-Length Product): 3123.65 mGy.cm (accession [id number]),3123.65 mGy.cm (accession [id number]). Please note: The reported valuerepresents the total [...] Talisha Mo MD on 08/31/2024 10:14 PM Kim Lares MD IMG CT PROCEDURES Final [...] Total DLP (Dose-Length Product): 3123.65 mGy.cm (accession [id number]), 3123.65 mGy.cm (accession [id number]). Please note: The reported value represents the [...] Total DLP (Dose-Length Product): 3123.65 mGy.cm (accession [id number]),3123.65 mGy.cm (accession [id number]). Please note: The reported valuerepresents the total [...] HIV 1/2 Differentiation (08/31/2024 5:54 PM EDT) Pathologist [facility] HIV 1 & 2 Antibody/Antigen Screen Non Reactive Non Reactive 08/31/2024 7:08 PM EDT [facility] Comment:Screening for HIV 1 & 2 antibodies, and P24 antigen is NONREACTIVE. No confirmatory testing is required. Blood Venous blood specimen / Unknown Venipuncture / Unknown 08/31/2024 5:54 PM EDT 08/31/2024 6:28 PM EDT Result Arlet Lares MD LAB BLOOD ORDERABLES Final Re sult Performing Organization Address [facility] [place]/ZIP Co de Phone Number [facility] [address] [place] [address] * Hepatitis C Antibody - ED (08/31/2024 5:54 PM EDT) [facility] Hepatitis C Antibody Negative Negative 08/31/2024 7:15 PM EDT [facility] Blood Venous blood specimen / Unknown Venipuncture / Unknown 08/31/2024 5:54 PM EDT 08/31/2024 6:28 PM EDT Result Arlet Lares MD LAB BLOOD ORDERABLES Final Re sult Performing Organization Address City/[facility] [place]/ZIP Co de Phone Number [facility] [address] [place] [address] * Lipase (08/31/2024 5:54 PM EDT) [facility] Lipase, Plasma 34 19 - 63 U/L 08/31/2024 6:43 PM EDT [facility] Blood Venous blood specimen / Unknown Venipuncture / Unknown 08/31/2024 5:54 PM EDT 08/31/2024 6:16 PM EDT Result Arlet Lares MD LAB BLOOD ORDERABLES Final Re sult Performing Organization Address City/[facility] [place]/ZIP Co de Phone Number [facility] [address] [place] [phone] from Last 3 Months Additional Health Concerns Infection Onset Date Last Indicated 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, RESEARCH LIBRARIAN Panic 10/26/2024 11/01/[address] [place] [address] [place] [address] MEDICAID Advance Directives * Full Code (Latest Code Status on File) Date Activated Date Inactivated Comments 11/19/2024 3:43 AM 11/22/2024 7:03 PM Question Answer Comments I have reviewed the capacity from the link above and, if needed, have updated to appropriate status: Yes * Full Code Date Activated Date Inactivated Comments 11/16/2024 1:19 AM 11/16/2024 5:44 PM Question Answer Comments I have reviewed the capacity from the link above and, if needed, have updated to appropriate status: Yes * Full Code Date Activated Date Inactivated Comments 10/25/2024 1:32 [...] needed, have updated to appropriate status: Yes Care Teams Corn Sheller Relationship Specialty Start Date End Date Laurie Gutierrez MD [address] [place], [place] [id number] PCP - General 12/09/23 Joshua Martínez MD [address] [place] [phone] Consulting Physician Radiation Oncology 09/19/24 Sabine Morales LPN TCM Nurse 11/23/24
--- OUTSIDE RECORDS SUMMARY | 2024-11-24 20:58 | XMS_ITS | Encounter Summary ---
Author Organization [facility] Address [address] [place] [address] Care Team Providers Care Epidemiology Investigator Name Role Phone Laurie Gutierrez MD Primary Care Provider [phone] Joshua Martínez MD Unavailable Encounter Details Date [...] living in a [facility]p (including now)? 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) to steady your nerves or to [...] [facility] [address] [facility], [address]nd [place] [address] 11/29/2024 11:00 AM EDT Office Visit [facility] [address] [facility], [address] [place] [address] Satnam Colvin MD [address] [facility] [address] [place] [address] 11/29/2024 12:30 PM EDT Appointment [facility] [address] [place] [address] 11/30/2024 1:30 PM EDT Appointment [facility] [address] [place] [address] 12/01/2024 2:00 PM EDT Appointment [facility] [address] [place] [address] 12/06/2024 11:40 AM EDT Appointment [facility] [address] [id number] [place] [address] Haven Blum, TUBE HEATER [address] [facility] [address] [place] [phone] 01/19/2025 9:30 AM EDT Appointment [facility] Radiology [address] [place] [phone] 01/19/2025 10:45 AM EDT Office Visit [place] [facility] [address] [place] [phone] Abhilash Bangura MD [address] [place] [phone] 03/08/2025 1:00 PM EDT Office Visit [facility] Wenceslao [address] [place] [address] Teresita Oconnell MD [address] [place] [address] documented as of this encounter [...] documented as of this encounter Care Teams Epidemiology Investigator Relationship Specialty Start Date End Date Laurie Gutierrez MD [address] [place] [address] PCP - General 12/09/23 Joshua Martínez MD [address] [place] [phone] Consulting Physician Radiation Oncology 09/19/24 documented as of this encounter
--- OUTSIDE RECORDS SUMMARY | 2024-11-24 20:58 | XMS_ITS | Encounter Summary ---
Author Organization Healthcare Address [address] [place] [address] Care Team Providers Care Solution Mixer Name Role Phone Laurie Gutierrez MD Primary Care Provider [phone] Joshua Martínez MD Unavailable Reason for Visit * Reason Comments Resource Navigation Encounter Details Date Type Department Care Team (Late st Contact Info) Description 10/04/2024 Social Work Psych Oncology [address] [place] [address] Mariah Rowley Social History Tobacco Use Types [...] time in the past 12 m [facility], were you homeless or living in [...] drink first t laurie in the morning (EYE-INTERVENTION TEACHER) to steady your nerves or to [...] Visit Disease Status: Established Patient Clinic Location: [facility] Services Provided: Gift / Gas Card Gift Card Type: [employer] Gift Card Amount: 100 Intervention Level: 2 Units (1 unit = 15 minutes): 4 Narrative: WIND TURBINE CONTROLS ENGINEER met with pt in clinic to follow up on request from RN. Per RN, pt identified financial hardships. WIND TURBINE CONTROLS ENGINEER met with pt in exam room and introduced self and non urgent nature of visit. Pt explained that she is in need of assistance for food and gas money to get back and forth for her tx. Pt voiced wish to stay at [facility] but stated she has been unable to find a caregiver. WIND TURBINE CONTROLS ENGINEER encouraged pt to reach out to WIND TURBINE CONTROLS ENGINEER in the future should pt locate a caregiver to stay at with pt. WIND TURBINE CONTROLS ENGINEER offered to givept assistance for fuel and gas to offset costs associated with getting back and forth with treatment. Pt expressed appreciation for the assistance. WIND TURBINE CONTROLS ENGINEER then assisted pt with getting over to infusion and committed to coming back during pt's infusion. WIND TURBINE CONTROLS ENGINEER later met with pt once in a chair and provided pt with 100.00 card. WIND TURBINE CONTROLS ENGINEER informed pt that card already activated and ready to use. Pt voiced understanding and appreciation for the assistance. No further needs identified. WIND TURBINE CONTROLS ENGINEER encouraged to reach out for any future questions, comments, or concerns. WIND TURBINE CONTROLS ENGINEER to remain available for any ongoing needs orsupport. NAVEED Ashley, WIND TURBINE CONTROLS ENGINEER [facility] Psych-Oncology Services documented in this encounter Plan of Treatment Upcoming Encounters Date Type Department Care Team (Late st Contact Info) Description 11/29/2024 10:30 AM EDT Clinical Support [facility] [address] [facility], [address]nd [place] [address] 11/29/2024 11:00 AM EDT Office Visit [facility] [address] [facility], [address]nd [place] [address] Satnam Colvin MD [address] [facility] [address] [place] [address] 11/29/2024 12:30 PM EDT Appointment [facility] [address] [place] [phone] 11/30/2024 1:30 PM EDT Appointment [facility] [address] [place] [phone] 12/01/2024 2:00 PM EDT Appointment [facility] [address] [place] [phone] 12/06/2024 11:40 AM EDT Appointment [facility] Radiation [address] [facility] [place] [address] Haven Blum, ASSISTANT PROFESSOR OF HISTORY [address] [facility] [address] [place] [address] 01/19/2025 9:30 AM EDT Appointment [facility] [address] [place] [address] 01/19/2025 10:45 AM EDT Office Visit [place] [facility] [address], [address] [place] [address] Abhilash Bangura MD [address] [place] [address] 03/08/2025 1:00 PM EDT Office Visit [facility] [place] [address] [place] [address] Teresita Oconnell MD [address] [place] [address] documented as of this encounter [...] documented as of this encounter Care Teams Solution Mixer Relationship Specialty Start Date End Date Laurie Gutierrez MD [address] [place] [address] PCP - General 12/09/23 Joshua Martínez MD [address] [facility] [address] [place] [address] Consulting Physician Radiation Oncology 09/19/24 documented as of this encounter
--- OUTSIDE RECORDS SUMMARY | 2024-11-24 20:58 | XMS_ITS | Data Portability ---
Author Organization [place] [employer] [place] [facility] Address [address] [place] [address] Assessment No assessment recorded. Plan of Treatment Reminders Order Date Submit Date Provider Last Modified By Organization Details Last Modified Time Details Appointments None record ed. Lab pap, LB 024 05/19/19 HARI [facility], [address], [place], [address], 23:41:14 Referral None record ed. Procedures None [...] perfo rming site locat ion. Not Available [employer] [facility] [place] [facility] [address], [place], [address], 05/20/2023 23:41:14 05/19/19 24 05/20/2023 IMAGE -GUID ED PAP W/AGE BASED SCR FADI COLS clinical information: normal None given Not Available [employer] [facility] [place] [facility] [address], [place], [address], 05/20/2023 23:41:14 05/19/19 24 05/20/2023 IMAGE -GUID ED PAP W/AGE BASED SCR FADI COLS LMP: normal NONE GIVEN Not Available [facility] [place] [facility] [address] [place], [address], 05/20/2023 23:41:14 05/19/19 24 05/20/2023 IMAGE -GUID ED PAP W/AGE BASED SCR FADI COLS prev. Pap: normal NONE GIVEN Not Available [facility] [address] [place], [address], 05/20/2023 23:41:14 05/19/19 24 05/20/2023 IMAGE -GUID ED PAP W/AGE BASED SCR FADI COLS prev. BX: normal NONE GIVEN Not Available [facility] [address] [place], [address], 05/20/2023 23:41:14 05/19/19 24 05/20/2023 IMAGE -GUID ED PAP W/AGE BASED SCR FADI COLS source: normal Vagin a, Cervi x, Endoc ervix Not Available [facility] [address] [place], [address], 05/20/2023 23:41:14 05/19/19 24 05/20/2023 IMAGE -GUID ED PAP W/AGE BASED SCR FADI COLS statement of adequacy: normal Satis facto ry for evalu ation . Endoc ervic al/tr ansfo rmati on zone compo nent prese nt. Not Available [employer] [facility] [address] [place], [address], 05/20/2023 23:41:14 05/19/19 24 05/20/2023 IMAGE -GUID ED PAP W/AGE BASED SCR FADI COLS interpretati on/result: normal Cytol ogy Resul ts: Negat elissa for intra epith elial lesio n or malig aleena . Not Available [facility] [place] [facility] [address] [place], [address], 05/20/2023 23:41:14 05/19/19 24 05/20/2023 IMAGE -GUID ED PAP W/AGE BASED SCR FADI COLS comment: normal This Pap test has been evalu ated with compu ter elizabeth samaria techn ology . Not Available [facility] [place] [facility] [address] [place], [address], 05/20/2023 23:41:14 05/19/19 24 05/20/2023 IMAGE -GUID ED PAP W/AGE BASED SCR FADI COLS cytotechnolo gist: normal MTE, CT( CP) CT Scree amelie Locat ion: [facility] [place] [address] [facility] [place] [place] [address] Not Available [facility] [place] [facility] [address] [place], [address], 05/20/2023 23:41:14 05/19/19 24 05/20/2023 IMAGE -GUID [...] matio n. Not Available [facility] [place] [facility] [address] [place], [address], 05/20/2023 23:41:14 05/19/19 24 05/20/2023 IMAGE -GUID [...] infor gill murray e refer to http: //[facility] joseph levy.edmond stdia gnost ics.c om/fa q/FAQ 129v1 (This link if provi ded for infor jaja levy/ educa syed albarado purpo ses only. ) Not Available [facility] [place] [facility] [address] [facility], [place], [address], 05/20/2023 23:41:14 Result Notes None recorded. Problems Name Problem SNOMED Code Status Onset Date Resolution Date Notes Provider Name and Address Organization Details Recorded Time Malignant neoplasm of lung 995278191 Active 024 Bud Shaffer, [address], [address], [employer] 4 13:19:41 Problem Notes None recorded. Procedures Surgical History Date Name Laterality Status Provider Name and Address Organization Details Recorded Time 4 Date of Last Pap Smear completed [facility] [employer] 05/22/2023 08:29:39 Tubal Ligation completed [facility] [employer] 05/19/2023 10:41:55 Imaging Results None recorded. Procedure Notes None recorded. Medical Equipment None Reported. Allergies Allergen ID Allergen Name Allergen Category Reaction Reaction Severity Criticality Documentation Date Start Date Code Code System Note Provider Name and Address Organization Details Recorded Time 07982 Keflex medicatio n Not available Not available Not available 10/16/202386278 7 RxNorm ELMER barksdale [employer] 12:54:16 48890 lisinopri l medicatio n Not available Not available Not available 10/16/2023 85639 RxNorm ELMER RICO [employer] [facility] 12:54:23 29908 meloxicam medicatio n Not available Not available Not available 10/16/2023 87401 RxNorm ELMER barksdale [employer] 12:54:50 Medications Name Sig Start Date [...] in Arterial blood by Pulse oximetry Systolic And Diastolic Provider Name and Address Organization Details Last Updated DateTime 167.64 cm 32.5 kg/m2 72531.5 g 77 /min 99 % 99 % 114/74 mm[Hg] JERMAN WELLS [employer] 10:46:23 Date Recorded Body height Body mass index (BMI) Body weight Systolic And Diastolic Provider Name and Address Organization Details Last Updated DateTime 10/16/2023 167.64 cm 35.2 kg/m2 24294.42 g 106/68 mm[Hg] ELMER RICO [employer] 10/16/2023 12:58:44 Social History Question Answer Notes LastModified by Organizat ion Details LastModified Time Tobacco Smoking Status Current Some Day Smoker ELMER [employer] 10/16/2023 12:55:50 Do You Have An Advance Directive? No [email or web address] Information not available 05/19/2023 Is Your Home Air Conditioned? Yes [email or web address] Information not available 05/19/2023 Are You Blind Or Do You Have Difficulty Seeing? No [email or web address] Information not available 05/19/2023 What Is Your Level Of Caffeine Consumption? Moderate [email or web address] Information not available 05/19/2023 What Type Of Functional Architect Do You Use? Relative [email or web address] Information not available 05/19/2023 Are You Deaf Or Do You Have Serious Difficulty Hearing? No Information not available 05/19/2023 What Type Of Diet Are You Following? REGULAR Information not available 05/19/2023 Have There Been Any Changes To Your Family Or Social Situation? No [email or web address] Information no t available 05/19/2023 Are There Any Guns Present In Your Home? No [email or web address] Information not available 05/19/2023 Which Of Your Hands Is Dominant? Right [email or web address] Information not available 05/19/2023 What Is Your Home Situation? Other [email or web address] Information not available 05/19/2023 Do You Have A Medical Power Of Semiconductor Packages Leak Tester? No Information not available 05/19/2023 What Was The Date Of Your Most Recent Tobacco Screening? 10/16/2023 Information not available 10/16/2023 What Is Your Current Pack Years? [email or web address] ears [email or web address] Information not available 05/19/2023 Do You Have Any Pets? No [email or web address] Information not available 05/19/2023 What Is Your Relationship Status? [email or web address] Information not available 05/19/2023 Have You Repeated Any Grades? No [email or web address] Information not available 05/19/2023 Do You Use Your Seat Belt Or Car Seat Routinely? Yes [email or web address] Information not available 05/19/2023 Are You Sexually Active? Yes [email or web address] Information not available 05/19/2023 Do You Have Any Siblings? Yes [email or web address] Information not available 05/19/2023 Do You Have Smoke And Carbon Monoxide Detectors In Your Home? Yes [email or web address] Information not available 05/19/2023 At What Age Did You Start Smoking Tobacco? 15 [email or web address] Information not available 05/19/2023 Are You Passively Exposed To Smoke? No [email or web address] Information no t available 05/19/2023 Are There Any Smokers In Your House? Yes Information not available 05/19/2023 How Much Tobacco Do You Smoke? 2 PPW Information not available 10/16/2023 Do You Use Sunscreen Routinely? No [email or web address] Information not available 05/19/2023 How Many Years Have You Smoked Tobacco? 47 [email or web address] Information not available 05/19/2023 Do You Have Difficulty Walking Or Climbing Stairs? No Information not available 05/19/2023 Sex: Female Functional Status Question Answer Note LastModified by Organizat ion Details LastModified Time Do you use any illicit or recreational drugs? No [email or web address] Information not available 05/19/2023 Do you or have you ever used any other forms of tobacco or nicotine? No Information not available 10/16/2023 Are you currently employed? No Information not available 05/19/2023 Are you able to walk? YESWOREST [email or web address] Information not available 05/19/2023 Do you have difficulty doing errands alone? No Information not available 05/19/2023 Are you able to care for yourself? Yes Information n ot available 05/19/2023 Do you have difficulty dressing or bathing? No [email or web address] Information not available 05/19/2023 Mental Status Question Answer Note LastModified by Organization D etails LastModified Time Do you have difficulty concentrating, remembering or making decisions? No [email or web address] Information no t available 05/19/2023 Family History Nothing Reported. Medical History Condition Response Diabetes Y Anxiety Disorder Y Cancer Y Hypertension Y Asthma Y Gynecological History Statement/Question Response Abnormal Pap [...] Influenza, split virus, quadrivalent, preservative 7 completed [employer], [employer] 10/16/2023 12:53:53 Influenza, split virus, quadrivalent, preservative 1 completed [employer], [employer] 10/16/2023 12:53:53 Influenza, split virus, quadrivalent, preservative 4 completed ELMER Vigno, [employer] 10/16/2023 12:53:53 zoster recombinant 9 completed [employer], [employer] 10/16/2023 12:53:53 Influenza, high-dose, quadrivalent, PF 0 completed [employer], [employer] 10/16/2023 12:53:53 COVID-19, mRNA, LNP-S, PF, 100 mcg/0.5mL dose or 50 mcg/0.25mL dose 1 completed ELMER JACKY null, [employer] 10/16/2023 12:53:53 COVID-19, mRNA, LNP-S, PF, 100 mcg/0.5mL dose or 50 mcg/0.25mL dose 1 completed ELMER JACKY null, [employer] 10/16/2023 12:53:53 COVID-19, mRNA, LNP-S, PF, 100 mcg/0.5mL dose or 50 mcg/0.25mL dose 2 completed ELMER JACKY null, [employer] 10/16/2023 12:53:53 COVID-19, mRNA, LNP-S, PF, 100 mcg/0.5mL dose or 50 mcg/0.25mL dose 1 completed ELMER JACKY null, [employer] 10/16/2023 12:53:53 COVID-19, mRNA, LNP-S, bivalent, PF, 50 mcg/0.5 mL or 25mcg/0.25 mL dose 3 completed ELMER JACKY null, [employer] 10/16/2023 12:53:53 pneumococcal polysaccharide PPV23 9 completed ELMER JACKY null, [employer] 10/16/2023 12:53:53 Tdap 8 completed ELMER JACKY [employer], [employer] 10/16/2023 12:53:53 Influenza, split virus, trivalent, preservative 4 completed ELMER JACKY null, [employer] 10/16/2023 12:53:53 Influenza, split virus, trivalent, PF 4 completed ELMER JACKY null, [employer] 10/16/2023 12:53:53 Hep A, adult 9 completed ELMER JACKY null, [employer] 10/16/2023 12:53:53 Hep A, adult 8 completed ELMER JACKY null, [employer] 10/16/2023 12:53:53 Influenza, split virus, quadrivalent, PF 8 completed ELMER barksdale, [employer] 10/16/2023 12:53:53 Influenza, split virus, quadrivalent, PF 9 completed ELMER barksdale, SAMANTA [employer] 10/16/2023 12:53:53 Past Encounters Encounter ID Performer Location Encounter Start Date Encounter Closed Date Diagnosis/Indication Diagnosis SNOMED-CT Code Diagnosis ICD10 Code Diagnosis Note [id number] Bud Shaffer [address],[facility] [place] [address] 05/19/2023 09:48:38 05/19/2023 12:57:51 Gynecologic examination 06839019 Z01.125 [id number] Bud Shaffer [address],[facility] [place] [address] 10/16/2023 12:32:37 10/16/2023 13:30:46 Urethral caruncle 5618613 N36.2 continue neosporin. Pt has appt with [...] Hutson Member ID Guarantor Name 10/16/2023 1 RADHA-[place]: [place]ICA[place]MO[place] [id number] Teresa Rivera [id number] Teresa Rivera Notes Date Note Type Note [...] and colorectal screening. Bud Shaffer, [address] [place], [address], [employer] 05/19/2023 12:44:19 10/16/2023 text/html Patient here [...] her lung cancer Bud Shaffer, [address] [place], [address], [employer] 10/16/2023 13:23:25 OBGyn Episode No OBEpisode recorded.
--- OUTSIDE RECORDS SUMMARY | 2024-11-24 20:58 | XMS_ITS | Encounter Summary ---
Author Organization [facility] Address [address] [place] [address] Care Team Providers Care Waste Oil Pumper Name Role Phone Laurie Gutierrez MD Primary [...] first t laurie in the morning (EYE-SOLAR FIELD INSTALLATION CREW MEMBER) to steady your nerves or to get [...] Upcoming Encounters Date Type Department Care Team ([facility] st Contact Info) Description 11/29/2024 10:30 AM EDT Clinical Support Pav [facility] Head[facility] Neck & Respiratory [address] [facility], 2nd [place] [address] 11/29/2024 11:00 AM EDT Office Visit Pav [facility] Head[facility] Neck [facility] Respiratory [address] [facility], [address]nd [place] [address] Satnam Colvin MD [address] [facility] [address] [place] [address] 11/29/2024 12:30 PM EDT Appointment [facility] 1 [address] [place] [address] 11/30/2024 1:30 PM EDT Appointment [facility] 1 [address] [place] [address] 12/01/2024 2:00 PM EDT Appointment [facility] 1 [address] [place] [address] 12/06/2024 11:40 AM EDT Appointment [facility] CC Radiation [address] [facility]. [address] [place] [address] Haven Blum, MACHINIST GENERAL [address] [facility] [address] [place] [address] 01/19/2025 9:30 AM EDT Appointment PAV S Radiology [address], [address] [place] [address] 01/19/2025 10:45 AM EDT Office Visit [place] [facility] [address], 1st [place] [address] Abhilash Bangura MD [address] [place] [address] 03/08/2025 1:00 PM EDT Office Visit [facility] [place] [address] [place] [address] Teresita Oconnell MD [address] [place] [address] documented as of this encounter [...] documented as of this encounter Care Teams Waste Oil Pumper Relationship Specialty Start Date End Date Laurie Gutierrez MD [address] [place] [address] PCP - General 12/09/23 Joshua Martínez MD [address] [place] [address] Consulting Physician Radiation Oncology 09/19/24 documented as of this encounter
--- OUTSIDE RECORDS SUMMARY | 2024-11-24 20:58 | XMS_ITS | Encounter Summary ---
Author Organization [facility] Address [address] [place] [address] Care Team Providers Care Senior Project Manager Engineering Name Role Phone Laurie Gutierrez MD Primary Care Provider [phone] Joshua Martínez MD Unavailable Jasmina Smith LPN Unavailable Unavailable Paradise Pacheco RN Unavailable Unavailab Sabine Crowe [employer] Unavailable Unavailable Encounter Details Date Type Department Care Team (Late st Contact Info) Description 06/10/2024 Orders Only External Location [address] [place] [address] Provider, External Social History Tobacco Use Types [...] in a long-term (including now)? No 11/20/2023 CAGE ASSESSMENT Answer [...] drink first t laurie in the morning (EYE-JUNIOR SYSTEMS ANALYST) to steady your nerves or to [...] CC Head, Neck & Respiratory [address] [facility], 2nd [place] [address] 11/29/2024 11:00 AM EDT Office Visit Pav [facility] Head[facility] Neck & Respiratory [address] [facility], [address]nd [place] [address] Satnam Colvin MD [address] [facility] Nuria Degroot [facility] [address] [place] [address] 11/29/2024 12:30 PM EDT Appointment [facility] 1 [address] [place] [address] 11/30/2024 1:30 PM EDT Appointment [facility] 1 [address] [place] [address] 12/01/2024 2:00 PM EDT Appointment [facility] 1 [address] [place] [address] 12/06/2024 11:40 AM EDT Appointment [facility] CC Radiation [address] [facility]. [address] [place] [address] Haven Blum, LONG TERM ACUTE CARE REGISTERED NURSE [address] [facility] [address] [place] [address] 01/19/2025 9:30 AM EDT Appointment PAV S Radiology [address], 1st [place] [address] 01/19/2025 10:45 AM EDT Office Visit [place] [facility] [address], 1st [place] [address] Abhilash Bangura MD [address] [place] [address] 03/08/2025 1:00 PM EDT Office Visit [facility] [place] [address] 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, INDIVIDUAL PENSION CONSULTANT Panic 10/26/2024 10/31/2024 Assessment Noted Time A fall risk assessment has been complete d for the patient 01/27/2024 11:18 AM EDT A Body Mass Index follow-up plan has been documented for the patient 01/27/2024 12:19 PM EDT documented as of this encounter Care Teams Senior Project Manager Engineering Relationship Specialty Start Date End Date Laurie Gutierrez MD [address] [place] [address] PCP - General 12/09/23 Joshua Martínez MD [address] [facility] [address] [place] [address] Consulting Physician Radiation Oncology 09/19/24 Jasmina Smith LPN VALUE[employer] [place] [address] TCM Nurse 10/19/24 11/01/24 Paradise Pacheco, RN CH-VASCULAR & INTERVENTIONAL RADIOLOGY Registered Nurse 11/21/24 11/21/24 Sabine Morales LPN TCM Nurse 11/23/24 documented as of this encounter
--- OUTSIDE RECORDS SUMMARY | 2024-11-24 20:59 | XMS_ITS | Encounter Summary ---
Author Organization Healthcare Address [address] [place] [address] Care Team Providers Care Inspector Eyeglass Name Role Phone Laurie Gutierrez MD Primary Care Provider [phone] Joshua Martínez MD Unavailable Paradise Pacheco RN Unavailable Unavailab le Reason for Visit * Reason Comments Link Encounter Details Date Type Department Care Team (Late st Contact Info) Description 11/21/2024 Patient Outreach POPULATION [facility] [address] [facility], [address] [place] [address] Paradise Pacheco, RN CH-VASCULAR & INTERVENTIONAL RADIOLOGY Link Social History Tobacco Use Types Packs/Day Years [...] any time in the past 12 m [facility], were you homeless or living in [...] any time in the past 12 m [facility], were you homeless or living in a alf (including now)? No 11/21/2024 CAGE ASSESSMENT Answer [...] drink first t laurie in the morning (EYE-BLACKJACK PIT BOSS) to steady your nerves or to get [...] Author No Risk Indicated 11/21/2024 7:39 AM Stephanie Santana RN * Question Answer Date of Assessment Author 1. Wish to be (Past 1 Month) No 025 7:39 AM Flor Santana RN 2. Non-Specific Active Suici radha Thoughts (Past 1 Month) No 11/21/2024 7:39 AM Gerson Santana RN 6. Suicidal Behavior (Lifetime) No 7:39 AM EDT Pierre, Flor R, RN documented as of this encounter Miscellaneous Notes * Progress Notes - Paradise Pacheco, RN - 11/21/2024 8:05 AM EDT Patient identified for LINK program. Program was closed at the time of review. Following chart review, patient determined to be ineligible based on program criteria. documented in this encounter Plan of Treatment Upcoming Encounters Date Type Department Care Team (Late st Contact Info) Description 11/29/2024 10:30 AM EDT Clinical Support Pav CC Head, Neck & Respiratory [address] [facility], 2nd [place] [address] 11/29/2024 11:00 AM EDT Office Visit Pav CC Head, Neck & Respiratory [address] [facility], [address]nd [place] [address] Satnam Colvin MD [address] [facility] [address] [place] [address] 11/29/2024 12:30 PM EDT Appointment [facility] 1 [address] [place] [address] 11/30/2024 1:30 PM EDT Appointment [facility] 1 [address] [place] [address] 12/01/2024 2:00 PM EDT Appointment [facility] 1 [address] [place] [address] 12/06/2024 11:40 AM EDT Appointment [facility] CC Radiation [address] [facility]. [address] [place] [address] Haven Blum, DIRECTOR OF RESOURCE DEVELOPMENT [address] [facility] [address] [place] [address] 01/19/2025 9:30 AM EDT Appointment P[facility] S Radiology [address] [place] [address] 01/19/2025 10:45 AM EDT Office Visit [place] [facility] [address], [address] [place] [address] Abhilash Bangura MD [address] [place] [address] 03/08/2025 1:00 PM EDT Office Visit [facility] [place] 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, [employer] LINE Panic 10/26/2024 10/31/2024 Assessment Noted Time PHQ-9 Depression Total Score: 0 09/01/19 3:26 PM EDT A fall risk assessment has been complete d for the patient 11/10/2024 2:43 PM EDT A Body Mass Index follow-up plan has been documented for the patient 11/22/2024 4:27 PM EDT documented as of this encounter Care Teams Inspector Eyeglass Relationship Specialty Start Date End Date Laurie Gutierrez MD [address] [place] [address] PCP - General 12/09/23 Joshua Martínez MD [address] [place] [address] Consulting Physician Radiation Oncology 09/19/24 Paradise Pacheco, RN CH-VASCULAR & INTERVENTIONAL RADIOLOGY Registered Nurse 11/21/24 11/21/24 documented as of this encounter
--- OUTSIDE RECORDS SUMMARY | 2024-11-24 20:59 | XMS_ITS | Encounter Summary ---
Author Organization Healthcare Address [address] [place] [address] Care Team Providers Care Nematologist Name Role Phone Laurie Gutierrez MD Primary Care Provider [phone] Joshua Martínez MD Unavailable Paradise Pacheco RN Unavailable Unavailab le Encounter Details Date Type Department Care Team (Late st Contact Info) Description 11/18/2024 Orders Only External Location [address] [place] [address] Provider, External Social History Tobacco Use Types [...] the past [address] [facility], were you homeless or living [...] No 11/21/2024 Housing Stability Vital Sign Answer Greogr e Recorded In the last 12 months, was t here a time when you were not able to pay the mortgage or rent on time? No 11/21/2024 In the past 12 months, how m any times have you moved where you were living? 1 11/21/2024 At any time in the past [address] [facility], were you homeless or living in a senior living (including now)? No 11/21/2024 CAGE ASSESSMENT Answer [...] drink first t laurie in the morning (EYE-BEEF BONER) to steady your nerves or to get rid of a hangover? 0 10/27/2024 CAGE Questionnaire Score 0 025 Utilities Answer Date Recorded In the past 12 months has e Only [place], gas, oil, or water [employer] threatened to shut off services in your [...] (Past 1 Month) No 025 6:00 PM JULIAT Flor Pierre RN 2. Non-Specific Active Suici radha Thoughts (Past 1 Month) No 11/21/2024 6:00 PM EDT Gerson Pierre RN 6. Suicidal Behavior (Lifetime) No 6:00 PM JULIAT Flor Pierre RN documented as of this encounter Plan of Treatment Upcoming Encounters Date Type Department Care Team (Late st Contact Info) Description 11/29/2024 10:30 AM EDT Clinical Support [facility] [address] [facility], 2nd [place] [address] 11/29/2024 11:00 AM EDT Office Visit [facility] [address] [facility], 2nd [place] [address] Satnam Colvin MD 800 [facility] [address] [place] [address] 11/29/2024 12:30 PM EDT Appointment [facility] 1 [address] [place] [address] 11/30/2024 1:30 PM EDT Appointment [facility] 1 [address] [place] [address] 12/01/2024 2:00 PM EDT Appointment [facility] 1 [address] [place] [address] 12/06/2024 11:40 AM EDT Appointment [facility] CC Radiation [address] [facility]. [id number] [place] [address] Haven Blum, BUCKET HOOKER [address] [facility] [address] [place] [address] 01/19/2025 9:30 AM EDT Appointment PAV S Radiology [address], 1st [place] [address] 01/19/2025 10:45 AM EDT Office Visit [place] [facility] [address], 1st [place] [address] Abhilash Bangura MD [address] [place] [address] 03/08/2025 1:00 PM EDT Office Visit [facility] [place] [address] [place] [address] Teresita Oconnell MD [address] [place] [address] documented as of this encounter Procedures Procedure Name Priority Date/Time Associated Diagnosis Comments CT MSK OUTSIDE IMAGES 11/18/2024 8:50 PM EDT documented in this encounter Results * CT MSK OUTSIDE IMAGES (11/18/2024 8:50 PM EDT) Anatomical Region Laterality Modality Computed Tomogra phy 11/18/2024 8:50 PM EDT us External Provider IMG CT PROCEDURES Final Result documented in this encounter Visit Diagnoses Not on filedocumented in this encounter Additional Health Concerns Infection Onset Date Last Indicated Resolved Time 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, LIQUIFIED NATURAL GAS TECHNICIAN Panic 10/26/2024 10/31/2024 Assessment Noted Time PHQ-9 Depression Total Score: 0 09/01/19 25 3:26 PM EDT A fall risk assessment has been complete d for the patient 11/10/2024 2:43 PM EDT A Body Mass Index follow-up plan has been documented for the patient 11/08/2024 5:14 PM EDT documented as of this encounter Care Teams Nematologist Relationship Specialty Start Date End Date Laurie Gutierrez MD [address] [place] [address] PCP - General 12/09/23 Joshua Martínez MD 800 [facility] [address] [place] [address] Consulting Physician Radiation Oncology 09/19/24 Paradise Pacheco, RN CH-VASCULAR & INTERVENTIONAL RADIOLOGY Registered Nurse 11/21/24 11/21/24 documented as of this encounter
--- OUTSIDE RECORDS SUMMARY | 2024-11-24 20:59 | XMS_ITS | Encounter Summary ---
Author Organization Healthcare Address [address] [place] [address] Care Team Providers Care Clinic Director Name Role Phone Laurie Gutierrez MD Primary Care Provider [phone] Joshua Martínez MD Unavailable Paradise Pacheco RN Unavailable Unavailab le Encounter Details Date Type Department Care Team (Late st Contact Info) Description 11/18/2024 Orders Only External Location [address] [place] [address] Nuria Lunsford PA [address] [place] [address] Social History Tobacco Use Types Packs/Day Years [...] living in a chcf (including now)? No 11/21/2024 CAGE ASSESSMENT Answer [...] drink first t laurie in the morning (EYE-PMP CERTIFIED PROJECT MANAGER) to steady your nerves or [...] Author No Risk Indicated 11/21/2024 6:00 PM JULIAT Stephanie Pierre RN * Question Answer Date of Assessment Author 1. Wish to be (Past 1 Month) No 025 6:00 PM Flor Santana RN 2. Non-Specific Active Suici radha Thoughts (Past 1 Month) No 11/21/2024 6:00 PM JULIAT Gerson Pierre RN 6. Suicidal Behavior (Lifetime) No 6:00 PM EDT Pierre, Flor R, RN documented as of this encounter Plan of Treatment Upcoming Encounters Date Type Department Care Team (Late st Contact Info) Description 11/29/2024 10:30 AM EDT Clinical Support Pav [facility] Head[facility] Neck & Respiratory 800 [facility], 2nd [place] [address] 11/29/2024 11:00 AM EDT Office Visit Pav [facility] Head[facility] Neck & Respiratory [address] [facility], 2nd [place] [address] Satnam Colvin MD 800 [facility] [address] [place] [address] 11/29/2024 12:30 PM EDT Appointment [facility] 1 [address] [place] [address] 11/30/2024 1:30 PM EDT Appointment [facility] 1 [address] [place] [address] 12/01/2024 2:00 PM EDT Appointment [facility] 1 [address] [place] [address] 12/06/2024 11:40 AM EDT Appointment P[facility] CC Radiation 800 [facility]. [id number] [place] [address] Haven Blum, CLINICAL RESEARCH MANAGER 800 [facility] [address] [place] [address] 01/19/2025 9:30 AM EDT Appointment PAV S Radiology [address], 1st [place] [address] 01/19/2025 10:45 AM EDT Office Visit [place] [facility] [address], 1st [place] [address] Abhilash Bangura MD [address] [place] [address] 03/08/2025 1:00 PM EDT Office Visit [facility] [place] [address] [place] [address] Teresita Oconnell MD [address] [place] [address] documented as of this encounter Procedures Procedure Name Priority Date/Time Associated Diagnosis Comments CT OUTSIDE IMAGES 11/18/2024 8:38 PM EDT documented in this encounter Results * CT OUTSIDE IMAGES (11/18/2024 8:38 PM EDT) Anatomical Region Laterality Modality Computed Tomogra phy 11/18/2024 8:38 PM EDT us Nuria RAMOS IMAileen CT PROCEDURES Final Resu lt documented in this encounter Visit Diagnoses Not on filedocumented in this encounter Additional Health Concerns Infection Onset Date Last Indicated Resolved Time 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, NEW CAR MAKE READY MECHANIC Panic 10/26/2024 10/31/2024 Assessment Noted Time PHQ-9 Depression Total Score: 0 09/01/19 25 3:26 PM EDT A fall risk assessment has been complete d for the patient 11/10/2024 2:43 PM EDT A Body Mass Index follow-up plan has been documented for the patient 11/08/2024 5:14 PM EDT documented as of this encounter Care Teams Clinic Director Relationship Specialty Start Date End Date Laurie Gutierrez MD [address] [place] [address] PCP - General 12/09/23 Joshua Martínez MD [address] [place] [address] Consulting Physician Radiation Oncology 09/19/24 Paradise Pacheco, RN CH-VASCULAR & INTERVENTIONAL RADIOLOGY Registered Nurse 11/21/24 11/21/24 documented as of this encounter
--- OUTSIDE RECORDS SUMMARY | 2024-11-24 20:59 | XMS_ITS | Encounter Summary ---
Author Organization [facility] Address [address] [place] [address] Care Team Providers Care Bit Grinder Name Role Phone Laurie Gutierrez MD Primary Care Provider [phone] Joshua Martínez MD Unavailable Encounter Details Date [...] any time in the past 12 m [facility], were you homeless or living in a assisted (including now)? No 09/06/2024 CAGE ASSESSMENT Answer [...] drink first t laurie in the morning (EYE-SOLID WASTE ANALYST) to steady your nerves or to [...] Upcoming Encounters Date Type Department Care Team ([facility] st Contact Info) Description 11/29/2024 10:30 AM EDT Clinical Support Pav [facility] Head, Neck & Respiratory 800 [facility], 2nd [place] [address] 11/29/2024 11:00 AM EDT Office Visit Pav [facility] Head[facility] Neck & Respiratory 800 [facility], [address]nd [place] [address] Satnam Colvin MD 800 [facility] [address] [place] [address] 11/29/2024 12:30 PM EDT Appointment [facility] 1 [address] [place] [address] 11/30/2024 1:30 PM EDT Appointment [facility] 1 [address] [place] [address] 12/01/2024 2:00 PM EDT Appointment [facility] 1 [address] [place] [address] 12/06/2024 11:40 AM EDT Appointment P[facility] CC Radiation 800 [facility]. [id number] [place] [address] Haven Blum, MAINTENANCE TRAINER 800 [facility] [address] [place] [address] 01/19/2025 9:30 AM EDT Appointment P[facility] S Radiology [address], [address]st [place] [address] 01/19/2025 10:45 AM EDT Office Visit [place] [facility] [address], 1st [place] [address] Abhilash Bangura MD [address] [place] [address] 03/08/2025 1:00 PM EDT Office Visit [facility] [place] [address] [place] [address] Teresita Oconnell MD [address] [place] [address] documented as of this encounter [...] documented as of this encounter Care Teams Bit Grinder Relationship Specialty Start Date End Date Laurie Gutierrez MD [address] [place] [address] PCP - General 12/09/23 Joshua Martínez MD [address] [place] [address] Consulting Physician Radiation Oncology 09/19/24 documented as of this encounter
--- OUTSIDE RECORDS SUMMARY | 2024-11-24 20:59 | XMS_ITS | Encounter Summary ---
Author Organization [facility] Address [address] [place] [address] Care Team Providers Care Pot Builder Name Role Phone Laurie Gutierrez MD Primary Care Provider [phone] Joshua Martínez MD Unavailable Encounter Details Date [...] drink first t laurie in the morning (EYE-SOLUTION ADVISOR) to steady your nerves or to [...] Pav CC Head, Neck & Respiratory 800 [facility], 2nd [place] [address] 11/29/2024 11:00 AM EDT Office Visit Pav [facility] Head[facility] Neck & Respiratory 800 [facility], [address]nd [place] [address] Satnam Colvin MD 800 [facility] [address] [place] [address] 11/29/2024 12:30 PM EDT Appointment [facility] 1 [address] [place] [address] 11/30/2024 1:30 PM EDT Appointment [facility] 1 [address] [place] [address] 12/01/2024 2:00 PM EDT Appointment [facility] 1 [address] [place] [address] 12/06/2024 11:40 AM EDT Appointment P[facility] CC Radiation 800 [facility]. [id number] [place] [address] Haven Blum, TOOLSMITH 800 [facility] [address] [place] [address] 01/19/2025 9:30 AM EDT Appointment P[facility] S Radiology [address], [address]st [place] [address] 01/19/2025 10:45 AM EDT Office Visit [place] [facility] [address], 1st [place] [address] Abhilash Bangura MD [address] [place] [address] 03/08/2025 1:00 PM EDT Office Visit [facility] [place] [address] [place] [address] Teresita Oconnell MD [address] [place] [address] documented as of this encounter [...] documented as of this encounter Care Teams Pot Builder Relationship Specialty Start Date End Date Laurie Gutierrez MD [address] [place] [address] PCP - General 12/09/23 Joshua Martínez MD [address] [place] [address] Consulting Physician Radiation Oncology 09/19/24 documented as of this encounter
--- OUTSIDE RECORDS SUMMARY | 2024-11-24 20:59 | XMS_ITS | Encounter Summary ---
Author Organization [facility] Address [address] [place] [address] Care Team Providers Care Town Clerk Name Role Phone Laurie Gutierrez MD Primary Care Provider [phone] Joshua Martínez MD Unavailable Encounter Details Date [...] any time in the past 12 m [facility], were you homeless or living [...] drink first t laurie in the morning (EYE-SOFTWARE DESIGN ENGINEER) to steady your nerves or [...] Encounters Date Type Department Care Team ([facility] st Contact Info) Description 11/29/2024 10:30 AM EDT Clinical Support Pav CC Head, Neck & Respiratory 800 [facility], 2nd [place] [address] 11/29/2024 11:00 AM EDT Office Visit Pav CC Head, Neck & Respiratory 800 [facility], [address]nd [place] [address] Satnam Colvin MD 800 [facility] [address] [place] [address] 11/29/2024 12:30 PM EDT Appointment [facility] 1 [address] [place] [address] 11/30/2024 1:30 PM EDT Appointment [facility] 1 [address] [place] [address] 12/01/2024 2:00 PM EDT Appointment [facility] 1 [address] [place] [address] 12/06/2024 11:40 AM EDT Appointment P[facility] CC Radiation 800 [facility]. [id number] [place] [address] Haven Blum, DEVELOPMENT INTERN 800 [facility] [address] [place] [address] 01/19/2025 9:30 AM EDT Appointment PAV S Radiology [address], [address]st [place] [address] 01/19/2025 10:45 AM EDT Office Visit [place] [facility] [address], 1st [place] [address] Abhilash Bangura MD [address] [place] [address] 03/08/2025 1:00 PM EDT Office Visit [facility] [place] [address] [place] [address] Teresita Oconnell MD [address] [place] [address] documented as of this encounter [...] documented as of this encounter Care Teams Town Clerk Relationship Specialty Start Date End Date Laurie Gutierrez MD [address] [place] [address] PCP - General 12/09/23 Joshua Martínez MD [address] [place] [address] Consulting Physician Radiation Oncology 09/19/24 documented as of this encounter
--- OUTSIDE RECORDS SUMMARY | 2024-11-24 20:59 | XMS_ITS | Encounter Summary ---
Author Organization [facility] Address [address] [place] [address] Care Team Providers Care Sewer Repairer Name Role Phone Laurie Gutierrez MD Primary Care Provider [phone] Joshua Martínez MD Unavailable Encounter Details Date [...] drink first t laurie in the morning (EYE-ROLLOFF DRIVER) to steady your nerves or to [...] Upcoming Encounters Date Type Department Care Team ([facility] st Contact Info) Description 11/29/2024 10:30 AM EDT Clinical Support Pav CC Head, Neck & Respiratory 800 [facility], 2nd [place] [address] 11/29/2024 11:00 AM EDT Office Visit Pav CC Head, Neck & Respiratory [address] [facility], 2nd [place] [address] Satnam Colvin MD [address] [facility] [address] [place] [address] 11/29/2024 12:30 PM EDT Appointment [facility] 1 [address] [place] [address] 11/30/2024 1:30 PM EDT Appointment [facility] 1 [address] [place] [address] 12/01/2024 2:00 PM EDT Appointment [facility] 1 [address] [place] [address] 12/06/2024 11:40 AM EDT Appointment P[facility] CC Radiation [address] [facility]. [id number] [place] [address] Haven Blum, OFFICE MACHINE SERVICER APPRENTICE 800 [facility] [address] [place] [address] 01/19/2025 9:30 AM EDT Appointment PAV S Radiology [address], [address]st [place] [address] 01/19/2025 10:45 AM EDT Office Visit [place] [facility] [address], 1st [place] [address] Abhilash Bangura MD [address] [place] [address] 03/08/2025 1:00 PM EDT Office Visit [facility] [place] [facility] [address] [place] [address] Teresita Oconnell MD [address] [place] [address] documented as of this encounter [...] documented as of this encounter Care Teams Sewer Repairer Relationship Specialty Start Date End Date Laurie Gutierrez MD [address] [place] [address] PCP - General 12/09/23 Joshua Martínez MD [address] [place] [address] Consulting Physician Radiation Oncology 09/19/24 documented as of this encounter
--- OUTSIDE RECORDS SUMMARY | 2024-11-24 20:59 | XMS_ITS | Encounter Summary ---
Author Organization Healthcare Address [address] [place] [address] Care Team Providers Care Unemployment Inspector Name Role Phone Laurie Gutierrez MD Primary Care Provider [phone] Joshua Martínez MD Unavailable Encounter Details Date Type Department Care Team (Latest Contact Info) Description 11/19/2024 Travel Social History Tobacco Use Types Packs/Day [...] any time in the past 12 m [facility], were you homeless or living in [...] any time in the past 12 m [facility], were you homeless or living in [...] drink first t laurie in the morning (EYE-TETRYL BLENDER OPERATOR) to steady your nerves or to get rid of a hangover? 0 10/27/2024 CAGE Questionnaire Score 0 025 Utilities Answer Date Recorded In the past 12 months has e [employer], gas, oil, or water [employer] threatened to shut off services in your home? No 10/26/2024 Comments No Sex and Gender Information Value Date Recorded Sex Assigned at Not on file Legal Sex Female 8:32 PM EDT Gender Identity Not on file Sexual Orientation Not on file documented as of this encounter Functional Status * Calculated C-SSRS Risk Score (Lifetime/Recent) Answer Date of Assessment Author No Risk Indicated 11/19/2024 6:48 PM EDT Stephanie Pierre RN * Question Answer Date of Assessment Author 1. Wish to be (Past 1 Month) No 025 6:48 PM EDT Flor Pierre RN 2. Non-Specific Active Suici radha Thoughts (Past 1 Month) No 11/19/2024 6:48 PM EDT Gerson Pierre RN 6. Suicidal Behavior (Lifetime) No 6:48 PM EDT Flor Pierre RN documented as of this encounter Plan of Treatment Upcoming Encounters Date Type Department Care Team ([facility] st Contact Info) Description 11/29/2024 10:30 AM EDT Clinical Support Pav CC Head, Neck & Respiratory 800 [facility], 2nd [place] [address] 11/29/2024 11:00 AM EDT Office Visit Pav CC Head, Neck & Respiratory 800 [facility], 2nd [place] [address] Satnam Colvin MD 800 [facility] [address] [place] [address] 11/29/2024 12:30 PM EDT Appointment [facility] 1 [address] [place] [address] 11/30/2024 1:30 PM EDT Appointment [facility] 1 [address] [place] [address] 12/01/2024 2:00 PM EDT Appointment [facility] 1 [address] [place] [address] 12/06/2024 11:40 AM EDT Appointment P[facility] CC Radiation 800 [facility]. [id number] [place] [address] Haven Blum, ARCHITECTURAL COATING FINISHER 800 [facility] [address] [place] [address] 01/19/2025 9:30 AM EDT Appointment P[facility] S Radiology [address], 1st [place] [address] 01/19/2025 10:45 AM EDT Office Visit [place] [facility] [address], 1st [place] [address] Abhilash Bangura MD [address] [place] [address] 03/08/2025 1:00 PM EDT Office Visit [facility] [place] 800 [facility]. 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, ESCROW SECRETARY Panic 10/26/2024 10/31/2024 Assessment Noted Time PHQ-9 Depression Total Score: 0 09/01/19 25 3:26 PM EDT A fall risk assessment has been complete d for the patient 11/10/2024 2:43 PM EDT A Body Mass Index follow-up plan has been documented for the patient 11/22/2024 4:27 PM EDT documented as of this encounter Care Teams Unemployment Inspector Relationship Specialty Start Date End Date Laurie Gutierrez MD [address] [place] [address] PCP - General 12/09/23 Joshua Martínez MD [address] [place] [address] Consulting Physician Radiation Oncology 09/19/24 documented as of this encounter
--- NOTE | 2024-11-24 21:00 | XR_ITS ---
PROCEDURE INFORMATION: Exam: XR Chest Exam date and time: 11/24/2024 8:58 PM Age: 63 years old Clinical indication: Other: SOB, cough, fever TECHNIQUE: Imaging protocol: Radiologic exam of the chest. Views: 2 views. COMPARISON: CR XR CHEST PORTABLE 11/15/2024 2:42 PM FINDINGS: Lungs: Right apical/suprahilar and lower lung zones/infrahilar bronchial wall thickening and peribronchial opacity. Pleural spaces: Unremarkable. No pleural effusion. No pneumothorax. Heart/Mediastinum: Unremarkable. No cardiomegaly. Bones/joints: Unremarkable. IMPRESSION: Right supra and infrahilar bronchitis and peribronchial infiltration.
--- OUTSIDE RECORDS SUMMARY | 2024-11-24 21:00 | XMS_ITS | Encounter Summary ---
Author Organization Healthcare Address [address] [place] [address] Care Team Providers Care Supervisor Offset Plate Preparation Name Role Phone Laurie Gutierrez MD Primary Care Provider [phone] Joshua Martínez MD Unavailable Jasmina [place] LPN Unavailable Unavailable Encounter Details Date Type Department Care Team (Late st Contact Info) Description 10/25/2024 Orders Only [facility] Radiation [address] [id number] [place] [address] Radiation Oncology, Physician, [address] [place], [place] [id number] Social History Tobacco Use Types Packs/Day Years [...] time in the past 12 m [facility], were you homeless or living in a [...] drink first t laurie in the morning (EYE-EDGE TRIMMING MACHINE OPERATOR) to steady your nerves [...] & Respiratory 800 [facility], 2nd [place] [address] 11/29/2024 11:00 AM EDT Office Visit Pav CC Head, Neck & Respiratory 800 [facility], [address]nd [place] [address] Satnam Colvin MD 800 [facility] [address] [place] [address] 11/29/2024 12:30 PM EDT Appointment [facility] 1 [address] [place] [address] 11/30/2024 1:30 PM EDT Appointment [facility] 1 [address] [place] [address] 12/01/2024 2:00 PM EDT Appointment [facility] 1 [address] [place] [address] 12/06/2024 11:40 AM EDT Appointment [facility] Radiation [address] [facility]. [id number] [place] [address] Haven Blum, CABLE TECHNICIAN [address] [facility] [address] [place] [address] 01/19/2025 9:30 AM EDT Appointment PAV S Radiology [address], 1st [place] [address] 01/19/2025 10:45 AM EDT Office Visit [facility] [address], 1st [place] [address] Abhilash Bangura MD [address] [place] [address] 03/08/2025 1:00 PM EDT Office Visit [facility] [place] [address] [facility]. [address] [place] [address] Teresita Oconnell MD [address] [place] [address] documented as of this encounter [...] as of this encounter Care Teams Supervisor Offset Plate Preparation Relationship Specialty Start Date End Date Laurie Gutierrez MD [address] [place] [address] [place] [address] PCP - General 12/09/23 Joshua Martínez MD 800 [facility] [address] [place] [address] Consulting Physician Radiation Oncology 09/19/24 Jasmina [place] LPN VALUE-[place]ED [place] [address] TCM Nurse 10/19/24 11/01/24 documented as of this encounter
--- OUTSIDE RECORDS SUMMARY | 2024-11-24 21:00 | XMS_ITS | Encounter Summary ---
Author Organization Healthcare Address [address] [place] [address] Care Team Providers Care Rn Hyperbaric Name Role Phone Laurie Gutierrez MD Primary Care Provider [phone] Joshua Martínez MD Unavailable Encounter Details Date Type Department Care Team (Latest Contact Info) Description 11/16/2024 Travel Social History Tobacco Use Types Packs/Day [...] first t laurie in the morning (EYE-MANAGER TECHNICAL) to steady your nerves or to get rid of a hangover? 0 10/27/2024 CAGE Questionnaire Score 0 025 Utilities Answer Date Recorded In the past 12 months has [employer], gas, oil, or water company threatened to [...] No Risk Indicated 11/16/2024 7:30 AM EDT Macria Pelletier * Question Answer Date of Assessment Author 1. Wish to be (Past 1 Month) No 025 7:30 AM EDT Marcia Pelletier 2. Non-Specific Active Suici radha Thoughts (Past 1 Month) No 11/16/2024 7:30 AM EDT Neida Pelletier 6. Suicidal Behavior (Lifetime) No 7:30 AM EDT Marcia Pelletier documented as of this encounter Plan of Treatment Upcoming Encounters Date Type Department Care Team ([facility] st Contact Info) Description 11/29/2024 10:30 AM EDT Clinical Support Pav CC Head, Neck & Respiratory 800 [facility], 2nd [place] [address] 11/29/2024 11:00 AM EDT Office Visit Pav CC Head, Neck & Respiratory 800 [facility], 2nd [place] [address] Satnam Colvin MD 800 [facility] [address] [place] [address] 11/29/2024 12:30 PM EDT Appointment [facility] 1 [address] [place] [address] 11/30/2024 1:30 PM EDT Appointment [facility] 1 [address] [place] [address] 12/01/2024 2:00 PM EDT Appointment [facility] 1 [address] [place] [address] 12/06/2024 11:40 AM EDT Appointment [facility] CC Radiation 800 [facility]. [id number] [place] [address] Haven Blmu, SUPERVISOR CUTTING DEPARTMENT 800 [facility] [address] [place] [address] 01/19/2025 9:30 AM EDT Appointment P[facility] S Radiology [address], 1st [place] [address] 01/19/2025 10:45 AM EDT Office Visit [place] [facility] [address], 1st [place] [address] Abhilash Bangura MD [address] [place] [address] 03/08/2025 1:00 PM EDT Office Visit [facility] [place] 800 [facility]. 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, COOK'S ASSISTANT Panic 10/26/2024 10/31/2024 Assessment Noted Time PHQ-9 Depression Total Score: 0 09/01/19 3:26 PM EDT A fall risk assessment has been complete d for the patient 11/10/2024 2:43 PM EDT A Body Mass Index follow-up plan has been documented for the patient 11/08/2024 5:14 PM EDT documented as of this encounter Care Teams Rn Hyperbaric Relationship Specialty Start Date End Date Laurie Gutierrez MD [address] [place] [address] PCP - General 12/09/23 Joshua Martínez MD [address] [place], [place] [id number] [place] [address] Consulting Physician Radiation Oncology 09/19/24 documented as of this encounter
--- OUTSIDE RECORDS SUMMARY | 2024-11-24 21:00 | XMS_ITS | Encounter Summary ---
Author Organization Healthcare Address [address] [place] [address] Care Team Providers Care Garageman Name Role Phone Laurie Gutierrez MD Primary Care Provider Joshua Martínez MD Unavailable Sabien Morales LPN Unavailable Unavailable Reason for Visit * Reason Comments TCM Call Encounter Details Date Type Department Care Team (Late st Contact Info) Description 11/23/2024 Patient Outreach [facility] [address] [facility] [address] [place] [address] Sabine Morales LPN TCM Call Social History Tobacco Use Types [...] in a group home (including now)? No 11/21/2024 CAGE ASSESSMENT [...] drink first t laurie in the morning (EYE-CLEAN ENERGY POLICY ANALYST) to steady your nerves or to [...] encounter Miscellaneous Notes * Progress Notes - Sabine Morales LPN - 11/23/2024 11:48 AM EDT Admit Date: 11/19/2024 Discharge Date: 11/22/2024 Hospital Service: [facility] Discharge Diagnosis: Atrial fibrillation with rapid ventricular response 11/23/2024 TCM call # 1 Patient Reached: No Outcome: Called patient for TCM nurse call, unable to contact, voicemail left with call back numberprovided. Action: N/A Medication changes: Per Discharge Summary: Other Medication Changes: - Hold Ropinirole and Triamterene-hydrochlorothiazide. You have not been taking them while admitted. Discuss with primary care doctor about whether or not to restart these medications. -- Discontinue Metoprolol succinate and start Metoprolol TARTRATE 50mg BID. The medications sound similar so be certain to only take Metoprolol TARTRATE. - Restart Xarelto on 12/01/24 as per Neurosurgery's recommendations -- Discontinue insulin and jardiance. -- Restart Metformin 1000mg BID and Januvia 50mg daily -- Holding Xarelto per NSGY, restarting on 12/01 rOPINIRole 1 MG tablet Wait to take [...] Take 1 tablet by mouth every morning. [facility] appointment: Needs an appointment scheduled with PCP Items to address at [facility]: N/A documented in this encounter Plan of Treatment Upcoming Encounters Date Type Department Care Team (Late st Contact Info) Description 11/29/2024 10:30 AM EDT Clinical Support [facility] Head, Neck & Respiratory [address] [address] 11/29/2024 11:00 AM EDT Office Visit Pav CC Head, Neck & Respiratory [address] [address] Satnam Colvin MD 800 [facility] [address] [place] [address] 11/29/2024 12:30 PM EDT Appointment [facility] 1 744 [place] [address] 11/30/2024 1:30 PM EDT Appointment [facility] 1 [address] [place] [address] 12/01/2024 2:00 PM EDT Appointment [facility] [address] [place] [address] 12/06/2024 11:40 AM EDT Appointment [facility] Radiation [address] [id number] [place] [address] Haven Blum, SAP BW ARCHITECT [address] [place] [address] 01/19/2025 9:30 AM EDT Appointment PAV S Radiology [address], 1st [place] [address] 01/19/2025 10:45 AM EDT Office Visit [place] [facility] [address], 1st [place] [address] Abhilash Bangura MD [address] [place] [address] 03/08/2025 1:00 PM EDT Office Visit [facility] [place] 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, PIANO MACHINE OPERATOR Panic 10/26/2024 10/31/2024 Assessment Noted Time PHQ-9 Depression Total Score: 0 09/01/19 25 3:26 PM EDT A fall risk assessment has been complete d for the patient 11/10/2024 2:43 PM EDT A Body Mass Index follow-up plan has been documented for the patient 11/22/2024 4:27 PM EDT documented as of this encounter Care Teams Garageman Relationship Specialty Start Date End Date Laurie Gutierrez MD [address] [place] [address] PCP - General 12/09/23 Joshua Martínez MD [address] [place] [address] Consulting Physician Radiation Oncology 09/19/24 Sabine Morales LPN TCM Nurse 11/23/24 documented as of this encounter
--- OUTSIDE RECORDS SUMMARY | 2024-11-24 21:00 | XMS_ITS | Encounter Summary ---
Author Organization Healthcare Address [address] [place] [address] Care Team Providers Care Mobile Device Developer Name Role Phone Laurie Gutierrez MD Primary Care Provider [phone] Joshua Martínez MD Unavailable Jasmina [place] LPN Unavailable Unavailable Encounter Details Date Type Department Care Team (Late st Contact Info) Description 10/24/2024 Orders Only [facility] CC Radiation [id number] [place] [address] Radiation Oncology, Physician, [facility] [place] [id number] Social History Tobacco Use Types Packs/Day Years [...] drink first t laurie in the morning (EYE-GLOBAL LOGISTICS ANALYST) to steady your nerves or to get rid of a hangover? 0 11/19/2023 CAGE Questionnaire Score 0 024 Utilities Answer Date Recorded In the past 12 months has [facility] electric, gas, oil, or water company threatened to shut off services in your home? No 10/14/2024 Comments No Sex and Gender Information Value Date Recorded Sex Assigned at Not on file Legal Sex Female 8:32 PM EDT Gender Identity Not on file Sexual Orientation Not on file documented as of this encounter Plan of Treatment Upcoming Encounters Date Type Department Care Team ([facility] Contact Info) Description 11/29/2024 10:30 AM EDT Clinical Support Pav CC Head, Neck & Respiratory 800 [facility] 2nd [place] [address] 11/29/2024 11:00 AM EDT Office Visit Pav CC Head, Neck & Respiratory 800 [facility] 2nd [place] [address] Satnam Colvin MD 800 [facility] [address] [place] [address] 11/29/2024 12:30 PM EDT Appointment [facility] 1 744 [place] [address] 11/30/2024 1:30 PM EDT Appointment [facility] 1 [address] [place] [address] 12/01/2024 2:00 PM EDT Appointment [facility] 1 [address] [place] [address] 12/06/2024 11:40 AM EDT Appointment P[facility] CC Radiation [address] [facility]. [id number] [place] [address] Haven Blum, CAR WASHER 800 [facility] [address] [place] [address] 01/19/2025 9:30 AM EDT Appointment PAV S Radiology [address], [address] [place] [address] 01/19/2025 10:45 AM EDT Office Visit [place] [facility] [address], 1st [place] [address] Abhilash Bangura MD [address] [place] [address] 03/08/2025 1:00 PM EDT Office Visit [facility] [place] [address] [place] [address] Teresita Oconnell MD [address] [place] [address] documented as of this encounter [...] documented as of this encounter Care Teams Mobile Device Developer Relationship Specialty Start Date End Date Laurie Gutierrez MD [address] [place] [address] PCP - General 12/09/23 Joshua Martínez MD [address] [place], [place] [address]D [place] [address] Consulting Physician Radiation Oncology 09/19/24 Jasmina [place] LPN VALUE-[place] [address] TCM Nurse 10/19/24 11/01/24 documented as of this encounter
--- OUTSIDE RECORDS SUMMARY | 2024-11-24 21:00 | XMS_ITS | Encounter Summary ---
Author Organization Healthcare Address [address] [place] [address] Care Team Providers Care Feeder Switchboard Operator Name Role Phone Laurie Gutierrez MD Primary Care Provider [phone] Joshua Martínez MD Unavailable Paradise Pacheco RN Unavailable Unavailab le Encounter Details Date Type Department Care Team (Late st Contact Info) Description 11/15/2024 Orders Only External Location [address] [place] [address] Regina Katz D, PRODUCTION DESIGNER [address] [place] [address] Social History Tobacco Use Types [...] living in a fci (including now)? No 11/21/2024 CAGE ASSESSMENT Answer [...] drink first t laurie in the morning (EYE-ACID TENDER) to steady your nerves or to [...] CC Head, Neck & Respiratory 800 [facility], 2nd [place] [address] 11/29/2024 11:00 AM EDT Office Visit Pav CC Head, Neck & Respiratory [address] [facility], 2nd [place] [address] Satnam Colvin MD 800 [facility] [address] [place] [address] 11/29/2024 12:30 PM EDT Appointment [facility] 1 [address] [place] [address] 11/30/2024 1:30 PM EDT Appointment [facility] 1 [address] [place] [address] 12/01/2024 2:00 PM EDT Appointment [facility] 1 [address] [place] [address] 12/06/2024 11:40 AM EDT Appointment P[facility] CC Radiation [address] [facility]. [id number] [place] [address] Haven Blum, PRODUCTION DESIGNER 800 [facility] [address] [place] [address] 01/19/2025 9:30 AM EDT Appointment PAV S Radiology [address], 1st [place] [address] 01/19/2025 10:45 AM EDT Office Visit [place] [facility] [address], 1st [place] [address] Abhilash Bangura MD [address] [place] [address] 03/08/2025 1:00 PM EDT Office Visit [facility] [place] [address] [place] [address] Teresita Oconnell MD [address] [place] [address] documented as of this encounter Procedures Procedure Name Priority Date/Time Associated Diagnosis Comments XR MSK OUTSIDE IMAGES 11/15/2024 2:42 PM EDT documented in this encounter Results * XR MSK OUTSIDE IMAGES (11/15/2024 2:42 PM EDT) Anatomical Region Laterality Modality Radiographic Carolyne ging 11/15/2024 2:42 PM EDT Regina Katz PRODUCTION DESIGNER IMG XR PROCEDURES Final Res ult documented in this encounter Visit Diagnoses Not on filedocumented in this encounter Additional Health Concerns Infection Onset Date Last Indicated Resolved Time 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, ROOM CLEANER Panic 10/26/2024 10/31/2024 Assessment Noted Time PHQ-9 Depression Total Score: 0 09/01/19 3:26 PM EDT A fall risk assessment has been complete d for the patient 11/10/2024 2:43 PM EDT A Body Mass Index follow-up plan has been documented for the patient 11/08/2024 5:14 PM EDT documented as of this encounter Care Teams Feeder Switchboard Operator Relationship Specialty Start Date End Date Laurie Gutierrez MD [address] [place] [address] PCP - General 12/09/23 Joshua Martínez MD [address] [place] [address] Consulting Physician Radiation Oncology 09/19/24 Praadise Pacheco, RN CH-VASCULAR & INTERVENTIONAL RADIOLOGY Registered Nurse 11/21/24 11/21/24 documented as of this encounter
--- OUTSIDE RECORDS SUMMARY | 2024-11-24 21:00 | XMS_ITS | Encounter Summary ---
Author Organization Healthcare Address [address] [place] [address] Care Team Providers Care Audio Video Repairer Name Role Phone Laurie Gutierrez MD Primary Care Provider [phone] Joshua Martínez MD Unavailable Paradise Pacheco RN Unavailable Unavailab le Encounter Details Date Type Department Care Team (Late st Contact Info) Description 11/15/2024 Orders Only External Location [address] [place] [address] Regina Katz D, PEDIATRIC OPHTHALMOLOGIST [address] [place] [address] Social History Tobacco Use Types [...] drink first t laurie in the morning (EYE-TARPER) to steady your nerves or to get [...] 800 [facility], 2nd [place] [address] 11/29/2024 11:00 AM EDT Office Visit Pav CC Head, Neck & Respiratory 800 [facility], 2nd [place] [address] Satnam Colvin MD 800 [facility] [address] [place] [address] 11/29/2024 12:30 PM EDT Appointment [facility] 1 [address] [place] [address] 11/30/2024 1:30 PM EDT Appointment [facility] 1 [address] [place] [address] 12/01/2024 2:00 PM EDT Appointment [facility] 1 [address] [place] [address] 12/06/2024 11:40 AM EDT Appointment P[facility] CC Radiation 800 [facility]. [id number] [place] [address] Haven Blum, PEDIATRIC OPHTHALMOLOGIST 800 [facility] [address] [place] [address] 01/19/2025 9:30 AM EDT Appointment PAV S Radiology [address], 1st [place] [address] 01/19/2025 10:45 AM EDT Office Visit [place] [facility] [address], 1st [place] [address] Abhilash Bangura MD [address] [place] [address] 03/08/2025 1:00 PM EDT Office Visit [facility] [place] [address] [place] [address] Teresita Oconnell MD [address] [place] [address] documented as of this encounter Procedures Procedure Name Priority Date/Time Associated Diagnosis Comments XR OUTSIDE IMAGES 11/15/2024 2:42 PM EDT documented in this encounter Results * XR OUTSIDE IMAGES (11/15/2024 2:42 PM EDT) Anatomical Region Laterality Modality Radiographic Carolyne ging 11/15/2024 2:42 PM EDT Regina Katz PEDIATRIC OPHTHALMOLOGIST IMG XR PROCEDURES Final Res ult documented in this encounter Visit Diagnoses Not on filedocumented in this encounter Additional Health Concerns Infection Onset Date Last Indicated Resolved Time 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, UNIFORM CAP OPERATOR Panic 10/26/2024 10/31/2024 Assessment Noted Time PHQ-9 Depression Total Score: 0 09/01/19 25 3:26 PM EDT A fall risk assessment has been complete d for the patient 11/10/2024 2:43 PM EDT A Body Mass Index follow-up plan has been documented for the patient 11/08/2024 5:14 PM EDT documented as of this encounter Care Teams Audio Video Repairer Relationship Specialty Start Date End Date Laurie Gutierrez MD [address] [place] [address] PCP - General 12/09/23 Joshua Martínez MD [address] [place] [address] Consulting Physician Radiation Oncology 09/19/24 Paradise Pacheco, RN CH-VASCULAR & INTERVENTIONAL RADIOLOGY Registered Nurse 11/21/24 11/21/24 documented as of this encounter
--- OUTSIDE RECORDS SUMMARY | 2024-11-24 21:00 | XMS_ITS | Encounter Summary ---
Author Organization [facility] Address [address] [place] [address] Care Team Providers Care Director Of Corporate Responsibility Name Role Phone Laurie Gutierrez MD Primary Care Provider [phone] Joshua Martínez MD Unavailable Jasmina [place] LPN [...] a group home (including now)? No 10/14/2024 CAGE ASSESSMENT [...] drink first t laurie in the morning (EYE-STRATEGIC PROCUREMENT MANAGER) to steady your nerves or to [...] Pav CC Head, Neck & Respiratory 800 [facility], 2nd [place] [address] 11/29/2024 11:00 AM EDT Office Visit Pav CC Head, Neck & Respiratory 800 [facility] 2nd [place] [address] Satnam Colvin MD 800 [facility] [address] [place] [address] 11/29/2024 12:30 PM EDT Appointment [facility] 1 [address] [place] [address] 11/30/2024 1:30 PM EDT Appointment [facility] 1 [address] [place] [address] 12/01/2024 2:00 PM EDT Appointment [facility] 1 [address] [place] [address] 12/06/2024 11:40 AM EDT Appointment P[facility] CC Radiation 800 [facility]. [id number] [place] [address] Haven Blum, BUCKLE FRAME SHAPER 800 [facility] [address] [place] [address] 01/19/2025 9:30 AM EDT Appointment P[facility] S Radiology [address], [address]st [place] [address] 01/19/2025 10:45 AM EDT Office Visit [place] [facility] [address], 1st [place] [address] Abhilash Bangura MD [address] [place] [address] 03/08/2025 1:00 PM EDT Office Visit [facility] [place] [facility] [address] [place] [address] Teresita Oconnell MD [address] [place] [address] documented as of this encounter [...] as of this encounter Care Teams Director Of Corporate Responsibility Relationship Specialty Start Date End Date Laurie Gutierrez MD [address] [place], [place] [id number] PCP - General 12/09/23 Joshua Martínez MD [address] [place] [address] Consulting Physician Radiation Oncology 09/19/24 Jasmina [place] LPN VALUE-BASED [place] [address] TCM Nurse 10/19/24 11/01/24 documented as of this encounter
--- OUTSIDE RECORDS SUMMARY | 2024-11-24 21:00 | XMS_ITS | Encounter Summary ---
Author Organization Healthcare Address [address] [place] [address] Care Team Providers Care Prefinish Operator Name Role Phone Laurie Gutierrez MD Primary Care Provider [phone] Joshua Martínez MD Unavailable Jasmina Smith LPN Unavailable Unavailable Encounter Details Date Type Department Care Team (Late st Contact Info) Description 10/26/2024 Orders Only [facility] CC Radiation [address] [id number] [place] [address] Radiation Oncology, Physician, [address] [place], [place] [id number] Social History Tobacco Use Types Packs/Day Years [...] in the past 12 m [facility], were you homeless or living in a [...] first t laurie in the morning (EYE-HARNESS PREPARER) to steady your nerves or to get [...] Upcoming Encounters Date Type Department Care Team ([facility] st Contact Info) Description 11/29/2024 10:30 AM EDT Clinical Support Pav [facility] Head, Neck & Respiratory [address] [facility], 2nd [place] [address] 11/29/2024 11:00 AM EDT Office Visit Pav [facility] Head[facility] Neck & Respiratory [address] [facility], 2nd [place] [address] Satnam Colvin MD [address] [facility] [address] [place] [address] 11/29/2024 12:30 PM EDT Appointment [facility] 1 [address] [place] [address] 11/30/2024 1:30 PM EDT Appointment [facility] 1 [address] [place] [address] 12/01/2024 2:00 PM EDT Appointment [facility] 1 [address] [place] [address] 12/06/2024 11:40 AM EDT Appointment [facility] CC Radiation [address] [facility] [id number] [place] [address] Haven Blum, STOREKEEPER STEWARD [address] [facility] [address] [place] [address] 01/19/2025 9:30 AM EDT Appointment PAV S Radiology [address], 1st [place] [address] 01/19/2025 10:45 AM EDT Office Visit [place] [facility] [address], 1st [place] [address] Abhilash Bangura MD [address] [place] [address] 03/08/2025 1:00 PM EDT Office Visit [facility] [place] [address] [facility] [place] [address] Teresita Oconnell MD [address] [place] [address] documented as of this encounter [...] documented as of this encounter Care Teams Prefinish Operator Relationship Specialty Start Date End Date Laurie Gutierrez MD [address] [place] [address] PCP - General 12/09/23 Joshua Martínez MD [address] [place] [address] Consulting Physician Radiation Oncology 09/19/24 Jasmina Smith LPN VALUE-[place] [address] [facility] Nurse 10/19/24 11/01/24 documented as of this encounter
--- OUTSIDE RECORDS SUMMARY | 2024-11-24 21:00 | XMS_ITS | Encounter Summary ---
Author Organization Healthcare Address [address] [place] [address] Care Team Providers Care Rn Ambulatory Name Role Phone Laurie Gutierrez MD Primary Care Provider [phone] Joshua Martínez MD Unavailable Paradise Pacheco RN Unavailable Unavailab le Encounter Details Date Type Department Care Team (Late st Contact Info) Description 11/15/2024 Orders Only External Location [address] [place] [address] Regina Katz D, OCCUPATIONAL HEALTH PROFESSIONAL [address] [place] [address] Social History Tobacco Use Types [...] living in a prison (including now)? No 11/21/2024 CAGE ASSESSMENT Answer [...] drink first t laurie in the morning (EYE-PUMPER GAUGER) to steady your nerves or to get [...] Pav CC Head, Neck & Respiratory 800 [facility], 2nd [place] [address] 11/29/2024 11:00 AM EDT Office Visit Pav CC Head, Neck & Respiratory 800 [facility], 2nd [place] [address] Satnam Colvin MD 800 [facility] [address] [place] [address] 11/29/2024 12:30 PM EDT Appointment [facility] 1 [address] [place] [address] 11/30/2024 1:30 PM EDT Appointment [facility] 1 [address] [place] [address] 12/01/2024 2:00 PM EDT Appointment [facility] 1 [address] [place] [address] 12/06/2024 11:40 AM EDT Appointment [facility] CC Radiation [address] [facility]. NE[address]R [place] [address] Haven Blum, OCCUPATIONAL HEALTH PROFESSIONAL [address] [facility] [address] [place] [address] 01/19/2025 9:30 AM EDT Appointment PAV S Radiology [address], 1st [place] [address] 01/19/2025 10:45 AM EDT Office Visit [place] [facility] [address], 1st [place] [address] Abhilash Bangura MD [address] [place] [address] 03/08/2025 1:00 PM EDT Office Visit [facility] [place] [address] [place] [address] Teresita Oconnell MD [address] [place] [address] documented as of this encounter Procedures Procedure Name Priority Date/Time Associated Diagnosis Comments CT NEURO OUTSIDE IMAGES 11/15/2024 2:38 PM EDT documented in this encounter Results * CT NEURO OUTSIDE IMAGES (11/15/2024 2:38 PM EDT) Anatomical Region Laterality Modality Computed Tomogra phy 11/15/2024 2:38 PM EDT Regina Katz APRN IMG CT PROCEDURES Final Res ult documented in this encounter Visit Diagnoses Not on filedocumented in this encounter Additional Health Concerns Infection Onset Date Last Indicated Resolved Time 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, HOME STAGING SPECIALIST Panic 10/26/2024 10/31/2024 Assessment Noted Time PHQ-9 Depression Total Score: 0 09/01/19 3:26 PM EDT A fall risk assessment has been complete d for the patient 11/10/2024 2:43 PM EDT A Body Mass Index follow-up plan has been documented for the patient 11/08/2024 5:14 PM EDT documented as of this encounter Care Teams Rn Ambulatory Relationship Specialty Start Date End Date Laurie Gutierrez MD [address] [place] [address] PCP - General 12/09/23 Joshua Martínez MD [address] [place] [address] Consulting Physician Radiation Oncology 09/19/24 Paradise Pacheco, RN [facility]ULAR [facility] INTERVENTIONAL RADIOLOGY Registered Nurse 11/21/24 11/21/24 documented as of this encounter
--- OUTSIDE RECORDS SUMMARY | 2024-11-24 21:00 | XMS_ITS | Encounter Summary ---
Author Organization Healthcare Address [address] [place] [address] Care Team Providers Care Precision Machining Instructor Name Role Phone Laurie Gutierrez MD Primary Care Provider [phone] Joshua Martínez MD Unavailable Jasmina Smith LPN [...] first t laurie in the morning (EYE-FIELD REIMBURSEMENT MANAGER) to steady your nerves or to [...] Pav CC Head, Neck & Respiratory 800 [facility], 2nd [place] [address] 11/29/2024 11:00 AM EDT Office Visit Pav CC Head, Neck & Respiratory 800 [facility], 2nd [place] [address] Satnam Colvin MD 800 [facility] [address] [facility] 134 [place] [address] 11/29/2024 12:30 PM EDT Appointment [facility] 1 [address] [place] [address] 11/30/2024 1:30 PM EDT Appointment [facility] 1 [address] [place] [address] 12/01/2024 2:00 PM EDT Appointment [facility] 1 [address] [place] [address] 12/06/2024 11:40 AM EDT Appointment P[facility] CC Radiation 800 [facility]. [id number] [place] [address] Haven Blum, ROD STRAIGHTENER 800 [facility] [address] [place] [address] 01/19/2025 9:30 AM EDT Appointment PAV S Radiology [address], 1st [place] [address] 01/19/2025 10:45 AM EDT Office Visit [place] [facility] [address], 1st [place] [address] Abhilash Bangura MD [address] [place] [address] 03/08/2025 1:00 PM EDT Office Visit [facility] [place] Wences[place]o [address] [place] [address] Teresita Oconnell MD [address] [place] [address] documented as of this encounter [...] documented as of this encounter Care Teams Precision Machining Instructor Relationship Specialty Start Date End Date Laurie Gutierrez MD [address] [place], [place] [phone] PCP - General 12/09/23 Joshua Martínez MD [address] [place], [place] [address]D [place] [address] Consulting Physician Radiation Oncology 09/19/24 Jasmina Smith LPN VALUE-BASED [place] [address] TCM Nurse 10/19/24 11/01/24 documented as of this encounter
--- OUTSIDE RECORDS SUMMARY | 2024-11-24 21:01 | XMS_ITS | Encounter Summary ---
Author Organization Healthcare Address [address] [place] [address] Care Team Providers Care Powerhouse Electrician Apprentice Name Role Phone Laurie Gutierrez MD Primary Care Provider [phone] Joshua Martínez MD Unavailable Encounter Details Date Type Department Care Team (Latest Contact Info) Description 11/22/2024 Travel Social History Tobacco Use Types Packs/Day [...] drink first t laurie in the morning (EYE-COAL EQUIPMENT OPERATOR) to steady your nerves or to get rid of a hangover? 0 10/27/2024 CAGE Questionnaire Score 0 025 Utilities Answer Date Recorded In the past 12 months has [employer], gas, oil, or water company threatened to shut off services in your home? No 11/21/2024 Comments No Sex and Gender Information Value Date Recorded Sex Assigned at Not on file Legal Sex Female 8:32 PM EDT Gender Identity Not on file Sexual Orientation Not on file documented as of this encounter Plan of Treatment Upcoming Encounters Date Type Department Care Team ([facility] Contact Info) Description 11/29/2024 10:30 AM EDT Clinical Support Pav CC Head, Neck & Respiratory [address] [facility], 2nd [place] [address] 11/29/2024 11:00 AM EDT Office Visit Pav CC Head, Neck & Respiratory [address] [facility], 2nd [place] [address] Satnam Colvin MD [address] [facility] [address] [facility] 134 [place] [address] 11/29/2024 12:30 PM EDT Appointment [facility] 1 [address] [place] [address] 11/30/2024 1:30 PM EDT Appointment [facility] 1 [address] [place] [address] 12/01/2024 2:00 PM EDT Appointment [facility] 1 [address] [place] [address] 12/06/2024 11:40 AM EDT Appointment PAV CC Radiation [id number] [place] [address] Haven Blum, BUTTER WRAPPER [address] [facility] [address] [place] [address] 01/19/2025 9:30 AM EDT Appointment PAV S Radiology [address], 1st [place] [address] 01/19/2025 10:45 AM EDT Office Visit [place] [facility] [address], 1st [place] [address] Abhilash Bangura MD [address] [place] [address] 03/08/2025 1:00 PM EDT Office Visit [facility] [place] Wenceslao [address] [facility]. 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, SYSTEM ANALYST Panic 10/26/2024 10/31/2024 Assessment Noted Time PHQ-9 Depression Total Score: 0 09/01/19 25 3:26 PM EDT A fall risk assessment has been complete d for the patient 11/10/2024 2:43 PM EDT A Body Mass Index follow-up plan has been documented for the patient 11/22/2024 4:27 PM EDT documented as of this encounter Care Teams Powerhouse Electrician Apprentice Relationship Specialty Start Date End Date Laurie Gutierrez MD [address] [place] [address] PCP - General 12/09/23 Joshua Martínez MD [address] [place] [address] [address] [place] [address] Consulting Physician Radiation Oncology 09/19/24 documented as of this encounter
--- OUTSIDE RECORDS SUMMARY | 2024-11-24 21:01 | XMS_ITS | Encounter Summary ---
Author Organization Healthcare Address [address] [place] [address] Care Team Providers Care Hot Metal Crane Operator Name Role Phone Laurie Gutierrez MD Primary Care Provider [phone] Joshua Martínez MD Unavailable Sabine Morales LPN Unavailable Unavailable Encounter Details Date Type Department Care Team (Late st Contact Info) Description 11/24/2024 Patient Outreach POPULATION [facility] [address] [facility] [place] [address] Sabine Morales LPN Social History Tobacco Use Types Packs/Day Years [...] drink first t laurie in the morning (EYE-SPRINKLER WORKER) to steady your nerves or to [...] Progress Notes - Sabine Morales LPN - 11/24/2024 10:43 AM EDT Admit Date: 11/19/2024 Discharge Date: 11/22/2024 Hospital Service: [facility] Discharge Diagnosis: Atrial fibrillation with rapid ventricular response 11/24/2024 TCM call # 2 Patient Reached: No Outcome: Called patient for [...] Upcoming Encounters Date Type Department Care Team ([facility] st Contact Info) Description 11/29/2024 10:30 AM EDT Clinical Support Pav CC Head, Neck & Respiratory [address] [address] 11/29/2024 11:00 AM EDT Office Visit Pav CC Head, Neck & Respiratory [address] [address] Satnam Colvin MD 800 [facility] [address] [facility] 134 [place] [address] 11/29/2024 12:30 PM EDT Appointment [facility] 1 [address] [place] [address] 11/30/2024 1:30 PM EDT Appointment [facility] 1 [address] [place] [address] 12/01/2024 2:00 PM EDT Appointment [facility] 1 [address] [place] [address] 12/06/2024 11:40 AM EDT Appointment P[facility] CC Radiation [id number] [place] [address] Haven Blum, SHARDA [address] [place] [address] 01/19/2025 9:30 AM EDT Appointment PAV S Radiology [address], 1st [place] [address] 01/19/2025 10:45 AM EDT Office Visit [place] [facility] [address], 1st [place] [address] Abhilash Bangura MD [address] [place] [address] 03/08/2025 1:00 PM EDT Office Visit [facility] [place]lao 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, AUTOMATIC FOLDER SEAMER Panic 10/26/2024 10/31/2024 Assessment Noted Time PHQ-9 Depression Total Score: 0 09/01/19 25 3:26 PM EDT A fall risk assessment has been complete d for the patient 11/10/2024 2:43 PM EDT A Body Mass Index follow-up plan has been documented for the patient 11/22/2024 4:27 PM EDT documented as of this encounter Care Teams Hot Metal Crane Operator Relationship Specialty Start Date End Date Laurie Gutierrez MD [address] [place] [address] PCP - General 12/09/23 Joshua Martínez MD [address] [address] Consulting Physician Radiation Oncology 09/19/24 Sbaine Morales LPN TCM Nurse 11/23/24 documented as of this encounter
--- OUTSIDE RECORDS SUMMARY | 2024-11-24 21:02 | XMS_ITS | Encounter Summary ---
Author Organization Healthcare Address [address] [place] [address] Care Team Providers Care Field Adjuster Name Role Phone Laurie Gutierrze MD Primary Care Provider [phone] Joshua Martínez MD Unavailable Jasmina Smith LPN Unavailable Unavailable Reason for Visit * Reason Comments TCM Call Encounter Details Date Type Department Care Team (Late st Contact Info) Description 10/19/2024 Patient Outreach POPULATION HEALTH [address] [facility] [place] [place] [address] Jasmina Smith LPN VALUE-[place] [address] TCM Call Social History Tobacco Use Types [...] any time in the past 12 m [facility], were you homeless or living in [...] any time in the past 12 m [facility], were you homeless or living in [...] first t laurie in the morning (EYE-MARKETING SENIOR RECRUITER) to steady your nerves or to get rid of a hangover? 0 10/27/2024 CAGE Questionnaire Score 0 025 Utilities Answer Date Recorded In the past 12 months has th e [employer], gas, oil, or water company threatened [...] and aware of stop medication listed below. [place] assessment is up to date, no issue with transportation. Snehat is active, aware of upcoming appointments at [facility]. Action: Follow up call after appointment with [...] to diagnosis and patient admitted to the [facility] until 11/10/2024. documented in this encounter Plan of Treatment Upcoming Encounters Date Type Department Care Team ([facility] st Contact Info) Description 11/29/2024 10:30 AM EDT Clinical Support Pav CC Head, Neck & Respiratory [address] 2[address] Floor [place] [phone] 11/29/2024 11:00 AM EDT Office Visit Pav CC Head, Neck & Respiratory 800 [facility], 2nd [place] [address] Satnam Colvin MD 800 [facility] [address] [place] [address] 11/29/2024 12:30 PM EDT Appointment [facility] 1 [address] [place] [address] 11/30/2024 1:30 PM EDT Appointment [facility] 1 [address] [place] [address] 12/01/2024 2:00 PM EDT Appointment [facility] 1 [address] [place] [address] 12/06/2024 11:40 AM EDT Appointment P[facility] CC Radiation 800 [facility]. [address] [place] [address] Haven Blum, MAPLE SUGAR MAKER 800 [facility] [address] [place] [address] 01/19/2025 9:30 AM EDT Appointment PAV S Radiology [address], 1st [place] [address] 01/19/2025 10:45 AM EDT Office Visit [place] [facility] [address], 1st [place] [address] Abhilash Bangura MD [address] [place] [address] 03/08/2025 1:00 PM EDT Office Visit [facility] [place] [address] 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, MSWS Panic 10/26/2024 10/31/2024 Assessment Noted Time PHQ-9 Depression Total Score: 0 09/01/19 3:26 PM EDT A fall risk assessment has been complete d for the patient 10/06/2024 2:29 PM EDT A Body Mass Index follow-up plan has been documented for the patient 10/18/2024 11:56 AM EDT documented as of this encounter Care Teams Field Adjuster Relationship Specialty Start Date End Date Laurie Gutierrez MD [address] [place] [address] PCP - General 12/09/23 Joshua Martínez MD [address] [place] [phone] Consulting Physician Radiation Oncology 09/19/24 Jasmina Smith LPN VALUE-[place]ED [place] [address] TCM Nurse 10/19/24 11/01/24 documented as of this encounter
--- OUTSIDE RECORDS SUMMARY | 2024-11-24 21:02 | XMS_ITS | Encounter Summary ---
Author Organization Healthcare Address [address] [place] [address] Care Team Providers Care Vp Director Of Creative Strategy Name Role Phone Laurie Gutierrez MD Primary Care Provider [phone] Joshua Martínez MD Unavailable Encounter Details Date Type Department Care Team ([facility] Contact Info) Description 10/17/2024 Orders Only Pav CC Head, Neck & Respiratory 800 [facility], 2nd [place] [address] Rupa De Santiago, PharmD 800 [facility] 2nd [place] [address] Social History Tobacco Use Types [...] first t laurie in the morning (EYE-SENIOR PROJECT ARCHITECT) to steady your nerves or to [...] Pav CC Head, Neck & Respiratory [address] [address] 11/29/2024 11:00 AM EDT Office Visit Pav [facility] Head, Neck & Respiratory [address] [address] Satnam Colvin MD 800 [facility] [address] [address] 11/29/2024 12:30 PM EDT Appointment [facility] 1 [address] [place] [address] 11/30/2024 1:30 PM EDT Appointment [facility] 1 [address] [place] [address] 12/01/2024 2:00 PM EDT Appointment [facility] [address] [place] [address] 12/06/2024 11:40 AM EDT Appointment P[facility] CC Radiation [address] [place] [address] Haven Blum, ACCOUNT EXECUTIVE SALES REPRESENTATIVE [address] [place] [address] 01/19/2025 9:30 AM EDT Appointment P[facility] S Radiology [address], 1st [place] [address] 01/19/2025 10:45 AM EDT Office [facility] [place] [facility] [address], 1st [place] [address] Abhilash Bangura MD [address] [place] [address] 03/08/2025 1:00 PM EDT Office Visit [facility] [place] [address] [place] [address] Teresita Oconnell MD [address] [place] [address] documented as of this encounter [...] documented as of this encounter Care Teams Vp Director Of Creative Strategy Relationship Specialty Start Date End Date Laurie Gutierrez MD [address] [place] [address] PCP - General 12/09/23 Joshua Martínez MD [address] [address] Consulting Physician Radiation Oncology 09/19/24 documented as of this encounter
--- OUTSIDE RECORDS SUMMARY | 2024-11-24 21:02 | XMS_ITS | Encounter Summary ---
Author Organization [facility] Address [address] [place] [address] Care Team Providers Care Mental Health Consultant Name Role Phone Laurie Gutierrez MD Primary Care Provider [phone] Joshua Martínez MD Unavailable Encounter Details Date [...] drink first t laurie in the morning (EYE-PIANO BUILDER) to steady your nerves or to get [...] [facility] Head[facility] Neck & Respiratory 800 [facility], 2nd [place] [address] 11/29/2024 11:00 AM EDT Office Visit [facility] Head[facility] Neck & Respiratory [address] [facility], 2nd [place] [address] Satnam Colvin MD [address] [facility] [address] [place] [address] 11/29/2024 12:30 PM EDT Appointment [facility] 1 [address] [place] [address] 11/30/2024 1:30 PM EDT Appointment [facility] 1 [address] [place] [address] 12/01/2024 2:00 PM EDT Appointment [facility] 1 [address] [place] [address] 12/06/2024 11:40 AM EDT Appointment [facility] CC Radiation 800 [facility]. [id number] [place] [address] Haven Blum APRN [address] [place] [address] 01/19/2025 9:30 AM EDT Appointment P[facility] S Radiology [address], 1st [place] [address] 01/19/2025 10:45 AM EDT Office Visit [place] [facility] [address], 1st [place] [address] Abhilash Bangura MD [address] [place] [address] 03/08/2025 1:00 PM EDT Office Visit [facility] [place] [address] [place] [address] Teresita Oconnell MD [address] [place] [address] documented as of this encounter [...] documented as of this encounter Care Teams Mental Health Consultant Relationship Specialty Start Date End Date Laurie Gutierrez MD [address] [place] [address] PCP - General 12/09/23 Joshua Martínez MD [address] [place] [address] Consulting Physician Radiation Oncology 09/19/24 documented as of this encounter
--- OUTSIDE RECORDS SUMMARY | 2024-11-24 21:02 | XMS_ITS | Encounter Summary ---
Author Organization [facility] Address [address] [place] [address] Care Team Providers Care Chemical Pathologist Name Role Phone Laurie Gutierrez MD Primary Care Provider Joshua Martínez MD Unavailable Jasmina Smith LPN Unavailable Unavailable Encounter Details Date Type Department Care Team (Late st Contact Info) Description 10/19/2024 Telephone [facility] [place] [address] [place] [address] Teresita Oconnell MD [address] [place] [address] Social History Tobacco Use Types [...] time in the past 12 m cox [place], were you homeless or living in a [...] drink first t laurie in the morning (EYE-FACT CHECKER) to steady your nerves or to get [...] CARMEN clinic would be made with EP inlayer and she would be notified later today of date and time. Also advised her to encourage patient to rest and drink plenty of fluids as dehydration and additional stress to the body such as the cancer and the chemo would cause her a-fib to be worse. Era verbalized understanding. Messagesent to EP inlayer Ashly Gerard to arrange CARMEN visit. * Telephone Encounter - Susan Lloyd - 10/19/2024 11:26 AM EDT Clinical Concern/Question Reason for Call: PT experiencing extreme elevated heart rate to where she cannot walk and fatigue. Asking if there is something prescribed she can take now or if something can be prescribed. [facility] contact number: Other: [phone] Optimal time of day to reach caller: [...] heart rate and fatigue? Best contact number: [phone] Optimal time of day to reach caller: [...] Head, Neck & Respiratory 800 [facility], 2nd [place] [address] 11/29/2024 11:00 AM EDT Office Visit Pav [facility] Head, Neck & Respiratory 800 [facility], 2nd [place] [address] Satnam Colvin MD 800 [facility] Nuria Degroot [facility] [address] [place] [address] 11/29/2024 12:30 PM EDT Appointment [facility] 1 [address] [place] [address] 11/30/2024 1:30 PM EDT Appointment [facility] 1 [address] [place] [address] 12/01/2024 2:00 PM EDT Appointment [facility] 1 [address] [place] [address] 12/06/2024 11:40 AM EDT Appointment [facility] CC Radiation 800 [facility]. [id number] [place] [address] Haven Blum, ART COORDINATOR [address] [place] [address] 01/19/2025 9:30 AM EDT Appointment [facility] S Radiology [address], 1st [place] [address] 01/19/2025 10:45 AM EDT Office Visit [place] [facility] [address], 1st [place] [address] Abhilash Bangura MD [address] [place] [address] 03/08/2025 1:00 PM EDT Office Visit [facility] [place] [address] [place] [address] Teresita Oconnell MD [address] [place] [address] documented as of this encounter [...] documented as of this encounter Care Teams Chemical Pathologist Relationship Specialty Start Date End Date Laurie Gutierrez MD [address] [place] [address] PCP - General 12/09/23 Joshua Martínez MD [address] [place] [address] Consulting Physician Radiation Oncology 09/19/24 Jasmina Smith LPN VALUE-BASED [place] [address] [facility] Nurse 10/19/24 11/01/24 documented as of this encounter
--- OUTSIDE RECORDS SUMMARY | 2024-11-24 21:02 | XMS_ITS | Encounter Summary ---
Author Organization [facility] Address [address] [place] [address] Care Team Providers Care Plant Protection Guard Name Role Phone Laurie Gutierrez MD Primary Care Provider [phone] Joshua Martínez MD Unavailable Jasmina Smith WAFER POLISHER Unavailable Unavailable Reason for Visit * Reason Onset Date Comments HCN - Patient Message 10/12/2024 Call back Encounter Details Date Type Department Care Team (Late st Contact Info) Description 10/12/2024 Telephone [place] [facility] [address], 1st [place] [address] Abhilash Bangura MD [address] [place] [address] HCN - Patient Message (Call [...] drink first t laurie in the morning (EYE-CNC MANUFACTURING ENGINEER) to steady your nerves or to [...] optimal time of day to reach caller: [phone] anytime Note: Please do not reply to this message. Follow-up communication and further actions as a result of this message need to be communicated with the patient directly, if the patient is not active onMyChart. If the patient is active on MyChart, they will receive notification of the communication/outcome via [employer]. documented in this encounter Plan of Treatment Upcoming Encounters Date Type Department Care Team (Late st Contact Info) Description 11/29/2024 10:30 AM EDT Clinical Support [facility] Head[facility] Neck & Respiratory 800 [facility], 2nd [place] [address] 11/29/2024 11:00 AM EDT Office Visit [facility] Head[facility] Neck & Respiratory [address] [facility], 2nd [place] [address] Satnam Colvin MD 800 [facility] [address] [place] [address] 11/29/2024 12:30 PM EDT Appointment [facility] 1 [address] [place] [address] 11/30/2024 1:30 PM EDT Appointment [facility] 1 [address] [place] [address] 12/01/2024 2:00 PM EDT Appointment [facility] 1 [address] [place] [address] 12/06/2024 11:40 AM EDT Appointment [facility] CC Radiation 800 [facility]. [id number] [place] [address] Haven Blum, TEAR DOWN WORKER [address] [facility] [address] [place] [address] 01/19/2025 9:30 AM EDT Appointment [facility] S Radiology [address], 1st [place] [address] 01/19/2025 10:45 AM EDT Office Visit [place] [facility] [address], 1st [place] [address] Abhilash Bangura MD [address] [place] [address] 03/08/2025 1:00 PM EDT Office Visit [facility] [place] [address] [facility]. 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, MECHANICS SUPERVISOR Panic 10/26/2024 10/31/2024 Assessment Noted Time PHQ-9 Depression Total Score: 0 09/01/19 3:26 PM EDT A fall risk assessment has been complete d for the patient 10/06/2024 2:29 PM EDT A Body Mass Index follow-up plan has been documented for the patient 10/18/2024 11:56 AM EDT documented as of this encounter Care Teams Plant Protection Guard Relationship Specialty Start Date End Date Laurie Gutierrez MD [address] [place] [address] PCP - General 12/09/23 Joshua Martínez MD 800 [facility] [address] [place] [address] Consulting Physician Radiation Oncology 09/19/24 Jasmina Smith LPN VALUE-BASED [place] [address] TCM Nurse 10/19/24 11/01/24 documented as of this encounter
--- OUTSIDE RECORDS SUMMARY | 2024-11-24 21:02 | XMS_ITS | Encounter Summary ---
Author Organization [facility] Address [address] [place] [address] Care Team Providers Care Entry Examiner Name Role Phone Laurie Gutierrez MD Primary Care Provider [phone] Joshua Martínez MD Unavailable Encounter Details Date [...] drink first t laurie in the morning (EYE-TELEGRAPH OFFICE MANAGER) to steady your nerves or to [...] & Respiratory 800 [facility], 2nd [place] [address] 11/29/2024 11:00 AM EDT Office Visit Pav [facility] Head, Neck & Respiratory 800 [facility], 2nd [place] [address] Satnam Colvin MD 800 [facility] [address] [place] [address] 11/29/2024 12:30 PM EDT Appointment [facility] 1 [address] [place] [address] 11/30/2024 1:30 PM EDT Appointment [facility] 1 [address] [place] [address] 12/01/2024 2:00 PM EDT Appointment [facility] 1 [address] [place] [address] 12/06/2024 11:40 AM EDT Appointment [facility] CC Radiation 800 [facility]. [id number] [place] [address] Haven Blum, WARP YARN SORTER [address] [place] [address] 01/19/2025 9:30 AM EDT Appointment [facility] S Radiology [address], [address] [place] [address] 01/19/2025 10:45 AM EDT Office Visit [place] [facility] [address], [address] [place] [address] Abhilash Bangura MD [address] [place] [address] 03/08/2025 1:00 PM EDT Office Visit [facility] [place] [address] [place] [address] Teresita Oconnell MD [address] [place] [address] documented as of this encounter [...] documented as of this encounter Care Teams Entry Examiner Relationship Specialty Start Date End Date Laurie Gutierrez MD [address] [place] [address] PCP - General 12/09/23 Joshua Martínez MD [address] [place] [address] Consulting Physician Radiation Oncology 09/19/24 documented as of this encounter
--- OUTSIDE RECORDS SUMMARY | 2024-11-24 21:02 | XMS_ITS | Encounter Summary ---
Author Organization [facility] Address [address] [place] [address] Care Team Providers Care Patch Finisher Name Role Phone Laurie Gutierrez MD Primary Care Provider [phone] Joshua Martínez MD Unavailable Encounter Details Date [...] time in the past 12 m [address] [place], were you homeless or living in a residential (including now)? No 10/14/2024 CAGE ASSESSMENT Answer [...] drink first t laurie in the morning (EYE-CERTIFICATION OFFICER) to steady your nerves or to [...] Upcoming Encounters Date Type Department Care Team ([facility] st Contact Info) Description 11/29/2024 10:30 AM EDT Clinical Support Pav [facility] Head, Neck & Respiratory 800 [facility], 2nd [place] [address] 11/29/2024 11:00 AM EDT Office Visit [facility] Head, Neck & Respiratory 800 [facility], 2nd [place] [address] Satnam Colvin MD 800 [facility] [address] [place] [address] 11/29/2024 12:30 PM EDT Appointment [facility] 1 [address] [place] [address] 11/30/2024 1:30 PM EDT Appointment [facility] 1 [address] [place] [address] 12/01/2024 2:00 PM EDT Appointment [facility] 1 [address] [place] [address] 12/06/2024 11:40 AM EDT Appointment [facility] CC Radiation 800 [facility]. [id number] [place] [address] Haven Blum, WOOLEN TESTER 800 [facility] [address] [place] [address] 01/19/2025 9:30 AM EDT Appointment [facility] S Radiology [address], 1st [place] [address] 01/19/2025 10:45 AM EDT Office Visit [place] [facility] [address], 1st [place] [address] Abhilash Bangura MD [address] [place] [address] 03/08/2025 1:00 PM EDT Office Visit [facility] [place] [address] [place] [address] Teresita Oconnell MD [address] [place] [address] documented as of this encounter [...] documented as of this encounter Care Teams Patch Finisher Relationship Specialty Start Date End Date Laurie Gutierrez MD [address] [place] [address] PCP - General 12/09/23 Joshua Martínez MD [address] [place] [address] Consulting Physician Radiation Oncology 09/19/24 documented as of this encounter
--- OUTSIDE RECORDS SUMMARY | 2024-11-24 21:02 | XMS_ITS | Encounter Summary ---
Author Organization [facility] Address [address] [place] [address] Care Team Providers Care Sales Merchandising Specialist Name Role Phone Laurie Gutierrez MD Primary Care Provider [phone] Joshua Martínez MD Unavailable Encounter Details Date [...] in a long-term (including now)? No 10/14/2024 CAGE ASSESSMENT Answer [...] drink first t laurie in the morning (EYE-DEMO SPECIALIST) to steady your nerves or to [...] Pav [facility] Head, Neck & Respiratory 800 [facility], 2nd [place] [address] 11/29/2024 11:00 AM EDT Office Visit Pav [facility] Head, Neck & Respiratory [address] [facility], 2nd [place] [address] Satnam Colvin MD 800 [facility] [address] [place] [address] 11/29/2024 12:30 PM EDT Appointment [facility] 1 [address] [place] [address] 11/30/2024 1:30 PM EDT Appointment [facility] 1 [address] [place] [address] 12/01/2024 2:00 PM EDT Appointment [facility] 1 [address] [place] [address] 12/06/2024 11:40 AM EDT Appointment [facility] CC Radiation 800 [facility]. [id number] [place] [address] Haven Blum APRN [address] [place] [address] 01/19/2025 9:30 AM EDT Appointment P[facility] S Radiology [address], 1st [place] [address] 01/19/2025 10:45 AM EDT Office Visit [place] [facility] [address], 1st [place] [address] Abhilash Bangura MD [address] [place] [address] 03/08/2025 1:00 PM EDT Office Visit [facility] [place] [address] [place] [address] Teresita Oconnell MD [address] [place] [address] documented as of this encounter [...] as of this encounter Care Teams Sales Merchandising Specialist Relationship Specialty Start Date End Date Laurie Gutierrez MD [address] [place] [address] PCP - General 12/09/23 Joshua Martínez MD [address] [place] [address] Consulting Physician Radiation Oncology 09/19/24 documented as of this encounter
--- NOTE | 2024-11-24 21:03 | ED_ITS ---
Discharge Plan Disposition Patient Disposition: Admitted Clinical Impressions Clinical Impression: Sepsis, Cellulitis of knee, left Discharge ED Provider: Dash Joya General Adult HPI General Chief complaint: Weakness Stated complaint: fever,body aches,weakness Time Seen by Provider: 11/24/24 20:50 Mode of Arrival: Wheelchair Source of Information: Patient and Parent(s) Description of Symptoms (Recalled from ER Triage Doc. by RN): pt presents to the ED d/t complaints of weakness starting today, pt was at clinic earlier today and they stated to come to hospital if it gets worse. pt fell a week ago on knee and has redness to knee. pt is recieving chemo for brain cancer. pt has hx of diabetes and has had trouble breathing with activity. 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 Patient states that earlier this month, she had a fall resulting in a head bleed and was sent to . At that time, she scraped her left knee and has noticed increased redness to that area. She states that today, she had a fever of 105 ?F at home and was seen by her primary care physician who diagnosed her with a right ear infection and put her on ofloxacin drops, Bactrim and diagnosed her with a yeast infection. Patient took 3 Tylenol prior to arrival. Temperature 100.4 on arrival. Patient denies any chest pain or shortness of breath but does note that she has had a history of urinary tract infections. She does not have any current urinary symptoms or abdominal pain. Related Data Home Medications ?Medication ?Instructions ?Recorded ?Confirmed amlodipine 5 mg tablet 5 mg PO DAILY Hypertension 0 07/11/17 02/01/23 aspirin 81 mg chewable tablet 81 mg PO DAILY Blood thi nner 07/11/17 02/01/23 atorvastatin 40 mg tablet 40 mg PO DAILY Cholesterol 0 07/11/17 02/01/23 calcium carbonate 600 mg PO DAILY SUPPLEMENT 0 07/11/17 02/01/23 carvedilol 6.25 mg tablet 6.25 mg PO BID Hypertension 07/11/17 02/01/23 cyanocobalamin (vitamin B-12) 1,000 mcg PO DAILY VITAM IN 07/11/17 02/01/23 1,000 mcg tablet glucosamine sulfate dipotassium Cl 1 ea PO DAILY [facility] 07/11/17 08/06/18 500 mg-chondroitin 400 mg capsule (Glucosamine Sulfate 2 KCL-Chondroitin) metformin 500 mg tablet 500 mg PO BID Diabetes 07/1102/01/23 triamterene 37.5 1 ea PO DAILY High blood pre ssure 07/11/17 02/01/23 mg-hydrochlorothiazide 25 mg capsule (Dyazide) empagliflozin 10 mg tablet 10 mg PO DAILY Diabetes 02/01/23 (Jardiance) [id number] See Rx Instructions .Route 0 05/31/22 02/01/23 12,000-38,000-60,000 unit .COMPLEX . capsule,delayed rel (Creon) celecoxib 200 mg capsule 400 mg PO DAILY . 02/01/23 0 02/01/23 gabapentin 600 mg tablet 600 mg PO QID Pain 02/01/23 02/01/23 ipratropium 20 mcg-albuterol 100 See Rx Instructions . Route 02/01/23 02/01/23 mcg/actuation mist for inhalation .COMPLEX . (Combivent Respimat) pantoprazole 40 mg tablet,delayed 40 mg PO DAILY gerd 02/01/23 02/01/23 release Previous Rx's ?Medication ?Instructions ?Recorded albuterol sulfate 90 mcg/actuation 1 - 2 puffs IH Q4-6 H PRN Shortness 05/13/19 aerosol inhaler Of Breath Or Wheezing #1 inh azithromycin 250 mg tablet See Rx Instructions PO .COM PLEX 5 02/01/23 (Zithromax Z-Tee) days #6 tabs benzonatate 100 mg capsule 100 mg PO TID PRN cough #30 caps 02/01/23 guaifenesin 600 mg tablet, 1,200 mg (2 x 600 mg) PO BI D PRN 02/01/23 extended release 12 hr (Mucinex) cough #20 tabs levofloxacin 500 mg tablet 500 mg PO DAILY #7 tabs 08/07 prednisone 10 mg tablet 10 mg PO DIRECTED 9 days #21 04/19/23 tabs promethazine-DM 6.25 mg-15 mg/5 mL 5 ml PO Q6H PRN Cou gh #240 mL 04/19/23 oral syrup levofloxacin 500 mg tablet 500 mg PO DAILY 5 days #5 t abs 08/02/23 benzonatate 100 mg capsule 100 mg PO TID PRN cough #30 caps 03/19/24 nirmatrelvir 300 mg (150 mg See Rx Instructions PO .CO MPLEX 03/19/24 x2)-ritonavir 100 mg tablet,dose #30 tabs pack (Paxlovid) Allergies Allergy/AdvReac Type Severity Reaction Status Date / Time cephalexin (From KEFLEX) Allergy Unknown Verified 04/19/23 09:37 lisinopril (LISINOPRIL) Allergy Unknown Verified 04/19/23 09:37 meloxicam (MELOXICAM) Allergy Unknown Verified 04/19/23 09:37 [facility] Disclaimer: The information contained in this section may have been updated after the patient was seen, as this information can be updated by other users. Social History Smoking Status: Unknown if ever smoked second hand exposure: Yes alcohol intake: never current occupational status: unemployed Travel in the last 8 weeks?: None household members: spouse housing: house current occupational exposures/hazards: No caffeine: Yes Have you lived/traveled outside [place] in past 30 days?: No Contact w/someone who lives/traveled outside [place] past 30 days?: No Exposure to someone with infectious disease in past 14 days?: No Do you have a fever (greater than 100.4 F or 38 C)?: Yes Have you tested positive for COVID-19?: No Exposed to someone with COVID-19 in past 14 days?: No Do you have a sore throat?: No Do you have a cough?: No Do you have any weakness?: No Do you have any diarrhea?: No Are you experiencing any unusual bleeding?: No Do you have any muscle aches/pain?: Yes Do you have any abdominal pain?: No Are you experiencing loss of taste or smell?: No Other Medical History Have you received the Flu Vaccine for this season: Yes Have you received the Pneumonia Vaccine: Yes ROS Obtained: Yes Systems reviewed as appropriate & no additional complaints except as documented Physical Exam General General appearance: alert and in no apparent distress Comment: Nontoxic-appearing Head Head exam: atraumatic Eye Eye exam: Present normal appearance ENT ENT exam: Present normal external ear exam; Absent TM's normal bilaterally (Small amount of serous fluid behind right tympanic membrane. Left dependent membrane normal) Neck Neck exam: Present full ROM Chest Chest inspection: Present symmetric chest wall rise Respiratory Respiratory exam: Present normal lung sounds bilaterally and wheezes (End expiratory wheezing bilaterally); Absent respiratory distress Cardiovascular Cardiovascular exam: Present regular rate and normal rhythm Abdominal Exam Abdominal exam: Present soft; Absent tenderness or guarding Extremities Exam Extremities exam: Present normal inspection Back Exam Back exam: Present normal inspection Neurological Exam Neurological exam: Present alert and oriented X3 Psychiatric Psychiatric exam: Present normal affect Skin Skin exam: Present warm, dry and other (Scabbing and erythema to the left knee with some tenderness and warmth in this area) Medical Decision Making Medical Records Screening: Per USPSTF and CDC recommendations, given the prevalence of disease in our region, it is our hospital?s policy to screen for HIV and viral Hepatitis for all patients aged 18 and over and those with ongoing risk factors. Garret Inquiry Pt receiving controlled substance: No Vital Signs: 11/24/24 20:53 11/24/24 21:30 11/24/24 22:30 Temperature 100.4 F H 98.8 F Temperature Source Oral Oral Pulse Rate 88 90 Pulse Rate [Right Radial] 102 H Respiratory Rate 20 16 Blood Pressure 114/60 93/47 L Blood Pressure [Right Arm] 126/71 Blood Pressure Mean 56 Blood Pressure Mean [Right Arm] 89 Blood Pressure Position [Right Arm] Supine 02 Sat by Pulse Oximetry 95 93 L 94 L Oxygen Delivery Method Room Air 11/24/24 22:45 Temperature Temperature Source Pulse Rate Pulse Rate [Right Radial] Respiratory Rate Blood Pressure 96/40 L Blood Pressure [Right Arm] Blood Pressure Mean 58 Blood Pressure Mean [Right Arm] Blood Pressure Position [Right Arm] 02 Sat by Pulse Oximetry Oxygen Delivery Method Lab Data Lab Results 11/24/24 20:56: WBC 11.3 H, RBC 2.82 L, Hgb 8.3 L, Hct 26.5 L, MCV 94.0, MCH 29.4, MCHC 31.3 L, RDW 19.6 H, Plt Count 61 L, MPV 9.8, Neut % (Auto) 78.1, Lymph % (Auto) 11.2, Ritchie % (Auto) 5.9, Eos % (Auto) 1.1, Baso % (Auto) 0.4, N eut # (Auto) 8.8 H, Lymph # (Auto) 1.3, Ritchie # (Auto) 0.7, Eos # (Auto) 0.1, Baso # (Auto) 0.1, Sodium 137, Potassium 3.2 L, Chloride 98, Carbon Dioxide 28, Anion Gap 14.2, BUN 5 L, Creatinine 0.70, Estimated Creat Clear 91, Estimated GFR 85, Est GFR ( Amer) 102, Glucose 170 H, Calcium 8.5, Total Bilirubin 0.8, AST 24, ALT 22, Alkaline Phosphatase 109, C-Reactive Protein 85.8 H, Total Protein 6.2 L, Albumin 3.2 L, Globulin 3.0, Albumin/Globulin Ratio 1.1, Procalcitonin 0.166 11/24/24 21:05: SARS-CoV-2 (PCR) Not detected, Influenza A Untype (PCR) Not detected, Influenza Type B (PCR) Not detected 11/24/24 21:06: VBG pH 7.45 H, VBG pCO2 35.3, VBG pO2 72.8 H, VBG HCO3 23.9, VBG Total CO2 25.0, VBG O2 Saturation 94.6 H, VBG Base Excess -0.1, VBG Lactic Acid 2.7 H 11/24/24 21:19: Urine Color Yellow, Urine Appearance Clear, Urine pH 6.5, Ur Specific [place] 1.010, Urine Protein Negative, Urine Glucose (UA) Negative, Urine Ketones Negative, Urine Blood Negative, Urine Nitrate Negative, Urine Bilirubin Negative, Urine Urobilinogen 0.2, Ur Leukocyte Esterase Negative, Urine RBC 3-5, Urine WBC 10-20, Ur Squamous Epith Cells 10-20, Urine Bacteria Trace 11/24/24 20:56 11/24/24 20:56 Orders (Tests/Meds): ED MEDICATIONS Generic Name Dose Route Start Last Admin Trade Name Freq PRN Reason Stop Dose Admin Acetaminophen 650 mg 11/24/24 22:46 Acetaminophen 325mg Tab PO 12/24/24 22:45 Q4HP PRN Fever or Mild Pain (1-3) Hydrocodone Bitart/Acetaminophen 1 tab 11/24/24 22:46 Hydrocodone/Apap 5/325 Mg Tablet PO 12/24/24 22:45 Q4HP PRN Mild to Moderate Pain (1-6) Al Hydrox/Mg Hydrox/Simethicone 30 ml 11/24/24 22:46 Aluminum/Magnesium/Simethicone 30ml Udc PO 12/24/24 22:45 QIDP PRN Dyspepsia Docusate Sodium 100 mg 11/25/24 09:00 Docusate Sodium 100 Mg Capsule PO 12/25/24 08:59 DAILY [facility] Enoxaparin Sodium 40 mg 11/25/24 09:00 Enoxaparin 40mg/0.4ml Syringe SUBCUT 12/25/24 08:59 DAILY [facility] Lactated Ringer's 2,990 mls @ 1,495 mls/hr 11/24/24 21:20 11/24/24 21:25 Lactated Ringer's 1000 Ml Bag 30 ml/kg infuse over 2 hr (2990 ml) 11/24/24 23:19 1,495 mls/hr IV Administration .Q2H ONE Vancomycin HCl 2,000 mg/ 250 mls @ 125 mls/hr 11/24/24 22:00 11/24/24 22:05 Sodium Chloride IV 11/24/24 23:59 125 mls/hr ONCE ONE Administration Sodium Chloride 1,000 mls @ 100 mls/hr 11/24/24 23:00 Sod Chlor 0.9% 1000ml Bag IV 12/24/24 22:59 .Q10H [facility] Piperacillin Sod/Tazobactam 50 mls @ 100 mls/hr 11/24/24 23:00 Sod 3.375 gm/ Sodium Chloride IV 12/04/24 22:59 Q6H [facility] Insulin Human Lispro 0 unit 11/25/24 06:00 Humalog 100 Units/Ml 10ml Vial (Ssi) SUBCUT 12/25/24 05:59 ACHS [facility] Protocol Miscellaneous 1 each 11/24/24 21:45 Vancomycin Consult Request NOTAPPLIC 12/24/24 21:44 CONSULT PHARMACY [facility] Ondansetron HCl 4 mg 11/24/24 22:46 Ondansetron 4mg/2ml Vial IV 12/24/24 22:45 Q8HP PRN Nausea Sodium Chloride 10 ml 11/24/24 22:46 Sodium Chloride 0.9% 10ml Flush Syringe IV 12/24/24 22:45 NEEDED PRN Maintain IV Site Discontinued Medications Generic Name Dose Route Start Last Admin Trade Name Freq PRN Reason Stop Dose Admin Albuterol/Ipratropium 3 ml 11/24/24 21:02 11/24/24 21:10 Ipratropium/Albuterol 3 Ml Neb IH 11/24/24 21:03 3 ml ONCE ONE Administration ORDERS Category Date Time Status CXR 2 view (NOT portable) [XR chest 2V] Stat Exams 11/24/24 21:00 Completed Knee XR left 2 views [XR knee LT 2V] Stat Exams 11/24/24 21:04 Completed POCUS Point of Care (ER Only) Stat Exams 11/24/24 22:06 Completed CBC w/Auto Diff [Complete Blood Count Auto Diff] Stat Lab 11/24/24 20:56 Completed CMP [Comprehensive Metabolic Panel] Stat Lab 11/24/24 20:56 Completed CRP [C-Reactive Protein] Stat Lab 11/24/24 20:56 Completed Procalcitonin Stat Lab 11/24/24 20:56 Completed Rapid PCR Covid and Flu A/B Stat Lab 11/24/24 21:05 Completed UA [Urinalysis and Microscopic] Stat Lab 11/24/24 21:19 Completed Blood Culture Stat Micro 11/24/24 21:09 Received Urine Culture Stat Micro 11/24/24 21:19 Received VBG [Venous Blood Gas] Stat RT 11/24/24 21:06 Completed Medical Decision Narrative: Teresa Rivera is a 63F with a past medical history of 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 Patient states that earlier this month, she had a fall resulting in a head bleed and was sent to . At that time, she scraped her left knee and has noticed increased redness to that area. She states that today, she had a fever of 105 ?F at home and was seen by her primary care physician who diagnosed her with a right ear infection and put her on ofloxacin drops, Bactrim and diagnosed her with a yeast infection. Patient took 3 Tylenol prior to arrival. Temperature 100.4 on arrival. Patient denies any chest pain or shortness of breath but does note that she has had a history of urinary tract infections. She does not have any current urinary symptoms or abdominal pain. On arrival, patient is normotensive, mildly tachycardic with a heart rate of 102 bpm, temperature of 100.4 ?F, no tachypnea, maintaining oxygen saturation 95% on room air. Physical exam, as stated above, revealed a nontoxic-appearing female in no distress. She has wheezing bilaterally but no other abnormal lung sounds. Cardiac exam revealed tachycardia but no murmurs are appreciated. Abdomen is soft, nontender nondistended. She has scab over her left knee with some surrounding erythema, warmth and tenderness. Differential diagnosis includes, but is not limited to: Sepsis, cellulitis, pneumonia, urinary tract infection, COPD exacerbation, neutropenic fever, among others viral respiratory illness. The most morbid conditions were considered and workup was based on these. Workup in the emergency department included: 2 view chest x-ray, left knee x- ray, CRP, CBC with differential, CMP, procalcitonin, COVID/flu swab, urinalysis. Patient was given a DuoNeb treatment for her wheezing. Laboratory workup showed leukocytosis with white blood cell count of 11.3. Thrombocytopenia with platelets of 61, pH mildly elevated 7.45 and lactate mildly elevated 2.7. Bicarb normal at 23.9. pCO2 normal at 35.3. Electrolytes with mildly low potassium at 3.2. No JORGE. Anion gap normal at 14.2. Glucose of 170. Liver enzymes within normal limits. CRP elevated at 85.8. Procalcitonin normal at 0.166. No evidence of urinary tract infection on urinalysis. Negative COVID, flu. [id number] soft tissue ultrasound of the knee was performed by me personally. There is cobblestoning in the anterior knee consistent with cellulitis. No drainable fluid collections. X-ray imaging interpreted by me personally. No fractures of the knee. Soft tissue edema. Chest x-ray interpreted by me personally. Patient has opacities in the right upper lobe consistent with scarring as this has been present on previous imaging without appreciable change. No other focal consolidations. No findings concerning for pneumonia. See final radiology report for details. Given patient meets sepsis criteria, started the patient on IV vancomycin as patient's source seems to be from cellulitis of the left knee. Patient was also given sepsis bolus IV fluids. Given this, is felt the patient requires admission for continued IV antibiotics. I discussed this with the patient and she was amenable to admission at this time. I discussed patient's case with the hospitalist who graciously agreed to admit the patient. Critical Care Critical Care Time Critical Care Time: No
--- NOTE | 2024-11-24 21:04 | XR_ITS ---
PROCEDURE INFORMATION: Exam: XR Left Knee Exam date and time: 11/24/2024 9:31 PM Age: 63 years old Clinical indication: Other: Redness, swelling, pain TECHNIQUE: Imaging protocol: Radiologic exam of the left knee. Views: 1 or 2 views. COMPARISON: CR XR KNEE LT 3V 11/15/2024 2:42 PM FINDINGS: Bones/joints: No fracture. Normal alignment. Moderate to moderately severe tricompartmental degenerative changes. No effusion. Soft tissues: Mild edema. IMPRESSION: Soft tissue edema without acute radiographic osseous findings. Degenerative changes.
[2024-11-24 21:09] LABS: Hematocrit 26.5 % (37.0-47.0); Hemoglobin 8.3 g/dL (12.2-16.2); Immature Granulocytes % 3.3 %; Mean Corpuscular HGB Conc 31.3 g/dL (31.8-35.4); Mean Corpuscular Hemoglobin 29.4 pg (27.0-31.2); Mean Corpuscular Volume 94.0 fl (81-99); Nucleated Red Blood Cells % 0.7 %; Platelet Count 61 K/mm3 (142-424); Red Blood Count 2.82 M/mm3 (4.20-5.40); Red Cell Distribution Width-SD 64.7 fL; White Blood Count 11.3 K/mm3 (4.8-10.8)
[2024-11-24 21:10] LABS: Coronavirus 19, PCR Not Detected (NotDetected); Influenza A, PCR Not Detected (NotDetected); Influenza B, PCR Not Detected (NotDetected)
[2024-11-24] MEDS: IPRATROPIUM/ALBUTEROL 3 ML NEB IH (21:10)
[2024-11-24 21:15] LABS: Lactate Venous 2.7 mmol/L (0.4-2.0); VBG HCO3 23.9 mmol/L (23-30); VBG PCO2 35.3 mmol/L (35-51); VBG PH 7.45 mmol/L (7.31-7.41); VBG PO2 72.8 mmol/L (28-40)
[2024-11-24 21:17] LABS: Albumin Level 3.2 g/dl (3.5-5.0); Chloride 98 mmol/L (98-107); Potassium 3.2 mmoL/L (3.5-5.1); Sodium 137 mmol/L (136-145)
[2024-11-24 21:20] LABS: Alanine Aminotransferase 22 U/L (12-78); Albumin/Globulin Ratio 1.1 (1.1-1.8); Alkaline Phosphatase 109 U/L (38-126); Anion Gap 14.2 mEq/L (5-15); Aspartate Amino Transferase 24 U/L (14-36); Bilirubin,Total 0.8 mg/dl (0.2-1.3); Blood Urea Nitrogen 5 mg/dl (7-17); Calcium 8.5 mg/dl (8.4-10.2); Carbon Dioxide 28 mmol/L (22.0-30.0); Creatinine Clearance Estimated 91 mL/min (50-200); Creatinine,Serum 0.70 mg/dl (0.52-1.04); Estimated Glomerular Filt Rate 85 ml/min (>60); GFR (African American) 102 ML/MIN (>60); Globulin 3.0 g/dL (1.3-3.2); Glucose 170 mg/dl (74-100); Total Protein,Serum 6.2 g/dl (6.3-8.2)
[2024-11-24 21:22] LABS: Microscopic, Urine URINE MICROSCOPIC (MICROSCOPIC)
[2024-11-24] MEDS: LACTATED RINGERS 1495 ML IV (21:25)
[2024-11-24 21:26] LABS: Bilirubin,Urine Negative (Negative); Color,Urine YELLOW (Yellow); Glucose,Urine (UA) Negative (Negative); Ketones,Urine Negative (Negative); Leukocyte Esterase,Urine Negative (Negative); PH,Urine 6.5 (5.0-8.5); Protein,Urine Negative (Negative); Specific Gravity, Urine 1.010 (1.005-1.030); Urobilinogen,Urine 0.2 EU/dl (0.2)
[2024-11-24 21:26] LABS: C-Reactive Protein 85.8 mg/L (0-4)
[2024-11-24 21:46] LABS: Procalcitonin 0.166 ng/mL (0.0-2.0)
[2024-11-24 22:00] LABS: Bacteria,Urine Trace /lpf
[2024-11-24] MEDS: VANCOMYCIN HCL 2,000 MG in 0.9 % SODIUM CHLORIDE 250 ML 125 MG IV (22:05)
[2024-11-25] VITALS (8 sets, daily range): BP systolic 100–126; BP diastolic 45–65; PULSE 80–93; RESP 14–22; TEMP 36.7–38.2; O2SAT 97–99; BMI 41.3
[2024-11-25] MEDS: PIPERCILLIN/TAZO 3.375 GM in 0.9 % SODIUM CHLORIDE 50 ML IV ×2 (00:22→04:00)
[2024-11-25] MEDS: 0.9 % SODIUM CHLORIDE 1000ML 1,000 ML 100 ML IV (00:22)
[2024-11-25 01:16] LABS: Reflex Lactic Add Lactic Reflex
--- NOTE | 2024-11-25 01:30 | P.HP_ITS ---
<Statement entered by Sherman Delatorre MD - 11/28/24 16:18> Personally evaluated patient and agree with plan of care as outlined by the [facility]ATH[facility] [employer]ESSER. History of Present Illness *Admission Date: 11/24/24 *Reason for visit:: Fever *History of present illness: Ms. Rivera is a 63-year-old female presents ER for evaluation of a fever. 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 Patient had a fall and sustained a subdural hemorrhage to which she was transferred to . At the time of the fall she scraped her left knee. She states that her son took her temperature and it was 105 today prompting her to get evaluated at the ER. She reports pain, erythema, and warmth to left knee. She states she noticed the redness got worse over the last 3 to 4 days. Patient states she saw some clear drainage and recently some yellow drainage coming from the wound. She reports her knee pain is 7 out of 10. She states she did have chills earlier today. Patient denies cough, congestion, runny nose, dyspnea, chest pain, abdominal pain, nausea, vomiting, diarrhea, constipation, headache, lightheadedness, dizziness, or syncope. [facility] Disclaimer: The information contained in this section may have been updated after the patient was seen, as this information can be updated by other users. Medical History (Updated 11/25/24 @ 01:56 by Anjali Hernandez APRN) GERD (gastroesophageal reflux disease) Diabetes Hyperlipidemia Obesity Falls Cellulitis of knee, left Insomnia COPD (chronic obstructive pulmonary disease) Chemotherapy management, encounter for Brain cancer Social History (Updated 11/25/24 @ 00:39 by Jaime Payan RN) Smoking Status: Never smoker second hand exposure: Yes alcohol intake: never current occupational status: unemployed Travel in the last 8 weeks?: None household members: spouse housing: house current occupational exposures/hazards: No caffeine: Yes Have you lived/traveled outside [place] in past 30 days?: No Contact w/someone who lives/traveled outside US past 30 days?: No Exposure to someone with infectious disease in past 14 days?: No Do you have a fever (greater than 100.4 F or 38 C)?: Yes Have you tested positive for COVID-19?: No Exposed to someone with COVID-19 in past 14 days?: No Do you have a sore throat?: No Do you have a cough?: No Do you have any weakness?: No Do you have any diarrhea?: No Are you experiencing any unusual bleeding?: No Do you have any muscle aches/pain?: Yes Do you have any abdominal pain?: No Are you experiencing loss of taste or smell?: No Other Medical History Have you received the Flu Vaccine for this season: No Have you received the Pneumonia Vaccine: No Review of Systems Constitutional Constitutional: Reports chills, Reports fever(s) and Denies headache(s) ENT Ears, Nose, Mouth, and Throat: Denies dizziness, Denies headache(s) and Denies nasal discharge *Cardiovascular Cardiovascular: Denies chest pain, Denies dyspnea and Denies lightheadedness *Respiratory Respiratory: Denies cough and Denies dyspnea *Gastrointestinal Gastrointestinal: Denies constipation, Denies loose stools, Denies nausea and Denies vomiting *Genitourinary Genitourinary: Reports system reviewed and no additional complaints, except as documented *Musculoskeletal Musculoskeletal: Reports other (Left knee pain) Integumentary/Breasts Skin/Breast: Reports erythema (Erythema, pain, and warmth to left knee) *Neurologic Neurologic: Denies dizziness and Denies headache(s) Meds Home Medications and Allergies Home Medications ?Medication ?Instructions ?Recorded ?Confirmed ?Type atorvastatin 40 mg tablet 40 mg PO DAILY Cholesterol 0 07/11/17 11/24/24 History calcium carbonate 500 mg PO QID PRN Heartburn 07/11/17 11/24/24 History cyanocobalamin (vitamin B-12) 1,000 mcg PO DAILY VITAM IN 07/11/17 11/24/24 History 1,000 mcg tablet glucosamine sulfate dipotassium Cl 1 ea PO DAILY [facility] 07/11/17 11/25/24 History 500 mg-chondroitin 400 mg capsule (Glucosamine Sulfate 2 KCL-Chondroitin) metformin 500 mg tablet 100 mg PO BID Diabetes 07/1111/25/24 History gabapentin 600 mg tablet 600 mg PO QID Pain 02/01/23 11/25/24 History pantoprazole 40 mg tablet,delayed 40 mg PO DAILY gerd 02/01/23 11/25/24 History release benzonatate 100 mg capsule 100 mg PO TID PRN cough #30 caps 11/02/24 07/10/25 Rx acetaminophen 325 mg tablet 650 mg PO Q6 PRN Pain (Sca le Score 11/24/24 11/25/24 History 1-3) budesonide 160 mcg-glycopyr 9 2 inh inhalation BID 03/1111/24/24 History mcg-formot 4.8 mcg/actuation HFA inhaler (Breztri Aerosphere) cetirizine 10 mg tablet 10 mg PO DAILY 11/24/2411/15 History estradiol 0.01% (0.1 mg/gram) 2 g vaginal DAILY 11/25/24 History vaginal cream ferrous sulfate 325 mg (65 mg 325 mg PO DAILY 11/24/24 11/25/24 History iron) tablet fluoxetine 40 mg capsule 40 mg PO DAILY 11/24/2411/15 History glucose 4 gram chewable tablet 4 g PO Q15M PRN Hypogly cemia 11/24/24 11/25/24 History hydroxyzine HCl 25 mg tablet 25 mg PO TID PRN . 11/25/24 History lidocaine 5 % topical ointment 1 applic topical BID 11/25/24 History magnesium oxide 400 mg PO BID 11/24/2411/25 History melatonin 10 mg tablet 10 mg PO HS PRN Insomnia 03/1111/25/24 History metoprolol tartrate 50 mg tablet 50 mg PO BID 11/24/24 11/24/24 History montelukast 10 mg tablet 10 mg PO HS 11/24/24 5 History mupirocin 2 % topical ointment 1 applic topical BID 11/25/24 History nystatin 100,000 unit/gram topical 1 applic topical BI D 11/24/24 11/25/24 History powder ofloxacin 0.3 % ear drops 1 drp otic (ear) BID 5 11/25/24 History ondansetron HCl 8 mg tablet 8 mg PO BID 11/24/2411/25 History prochlorperazine maleate 10 mg 10 mg PO Q6 PRN Nausea And Vomiting 11/24/24 11/25/24 History tablet rivaroxaban 20 mg tablet (Xarelto) 20 mg PO HS 5 11/24/24 History sitagliptin 50 mg tablet 50 mg PO DAILY 11/24/2411/15 History New Prescriptions to Start Prescriptions: Allergies Allergy/AdvReac Type Severity Reaction Status Date / Time cephalexin (From KEFLEX) Allergy Unknown Verified 04/19/23 09:37 lisinopril (LISINOPRIL) Allergy Unknown Verified 04/19/23 09:37 meloxicam (MELOXICAM) Allergy Unknown Verified 04/19/23 09:37 Exam Data for Last 24 hours Vital signs and Labs for Last 24 Hours: Temp Pulse Resp BP Pulse Ox O2 Del Method O2 Flow Rate 98.1 F 82 16 113/63 94 L Room Air 2 11/24/24 23:55 11/24/24 23:55 11/24/24 23:55 11/24/24 23:55 11/24/24 23:55 11/24/24 23:55 11/24/24 22:55 Laboratory Results - last 24 hr 11/24/24 20:56: WBC 11.3 H, RBC 2.82 L, Hgb 8.3 L, Hct 26.5 L, MCV 94.0, MCH 29.4, MCHC 31.3 L, RDW 19.6 H, Plt Count 61 L, MPV 9.8, Neut % (Auto) 78.1, Lymph % (Auto) 11.2, [place] % (Auto) 5.9, Eos % (Auto) 1.1, Baso % (Auto) 0.4, Neut # (Auto) 8.8 H, Lymph # (Auto) 1.3, [place] # (Auto) 0.7, Eos # (Auto) 0.1, Baso # (Auto) 0.1, Sodium 137, Potassium 3.2 L, Chloride 98, Carbon Dioxide 28, Anion Gap 14.2, BUN 5 L, Creatinine 0.70, Estimated Creat Clear 91, Estimated GFR 85, Est GFR ( Amer) 102, Glucose 170 H, Calcium 8.5, Total Bilirubin 0.8, AST 24, ALT 22, Alkaline Phosphatase 109, C-Reactive Protein 85.8 H, Total Protein 6.2 L, Albumin 3.2 L, Globulin 3.0, Albumin/Globulin Ratio 1.1, Procalci tonin 0.166 11/24/24 21:05: SARS-CoV-2 (PCR) Not detected, Influenza A Untype (PCR) Not detected, Influenza Type B (PCR) Not detected 11/24/24 21:06: VBG pH 7.45 H, VBG pCO2 35.3, VBG pO2 72.8 H, VBG HCO3 23.9, VBG Total CO2 25.0, VBG O2 Saturation 94.6 H, VBG Base Excess -0.1, VBG Lactic Acid 2.7 H 11/24/24 21:19: Urine Color Yellow, Urine Appearance Clear, Urine pH 6.5, Ur Specific [place] 1.010, Urine Protein Negative, Urine Glucose (UA) Negative, Urine Ketones Negative, Urine Blood Negative, Urine Nitrate Negative, Urine Bilirubin Negative, Urine Urobilinogen 0.2, Ur Leukocyte Esterase Negative, Urine RBC 3-5, Urine WBC 10-20, Ur Squamous Epith Cells 10-20, Urine Bacteria Trace I & O for Last 24 hours: Intake & Output 11/22/24 11/23/24 11/24/24 11/25/24 23:59 23:59 23:59 23:59 Intake Total 3530 / 3530 Balance 3530 / 3530 Weight 99.79 kg *Routine HEENT Exam Head: Present normocephalic and atraumatic Eye: Present EOMI and PERRL ENT: Present mucous membranes dry and oropharynx clear *Routine Neck Exam Neck: Present supple and full ROM *Routine Respiratory Exam Respiratory: Present CTA bilaterally, normal respiratory effort, able to speak in complete sentences and symmetric chest movement; Absent accessory muscle use or respiratory distress *Routine Cardiovascular Exam Cardiovascular: Present RRR, Normal S1 and Normal S2 *Routine Abdominal Exam Abdominal: Present soft, normoactive bowel sounds and obese; Absent tenderness or distended *Routine Rectal Exam Rectal:: deferred *Routine Genitalia Exam Genitalia:: deferred *Routine Extremities Exam Extremities: Present edema (2+ pitting edema noted to bilateral lower extremities), full ROM, pulses intact and normal capillary refill *Routine Skin Exam Skin: Present dry, warm and wounds (Scabbing to left knee with surrounding erythema and warmth) *Routine Neurological Exam Neurological: Present alert, oriented X3 and CN II-XII intact Assessment and Plan *Assessment and plan (1) Cellulitis of knee, left: Status: Acute Category: Medical Code(s): L03.116 - Cellulitis of left lower limb Plan: Patient received vancomycin 2 g in the ER Continue vancomycin pharmacy to dose Continue Zosyn 3.375 g every 6 hours Wound consult (2) Sepsis: Status: Acute Category: Medical Code(s): A41.9 - Sepsis, unspecified organism Plan: Patient is meeting sepsis criteria with fever, tachycardia HR 102, and source pna and cellulitis Patient received fluid bolus in the ER Follow blood cultures and adjust antibiotics if indicated (3) Pneumonia: Status: Acute Category: Medical Code(s): J18.9 - Pneumonia, unspecified organism Plan: Chest x-ray reviewed by me: Right infiltrate Continue Zosyn 3.375 g (4) Left knee pain: Status: Acute Category: Medical Code(s): M25.562 - Pain in left knee Plan: X-ray of left knee reviewed by me: Soft tissue edema without acute osseous findings. Continue analgesics as needed (5) Fever: Status: Acute Category: Medical Code(s): R50.9 - Fever, unspecified Plan: Self-reported fever 105 Temperature at time of arrival to the ER 100.4 Continue antipyretics (6) Hypokalemia: Status: Acute Category: Medical Code(s): E87.6 - Hypokalemia Plan: Replace with 40 mEq of potassium Monitor BMP in the a.m. (7) COPD (chronic obstructive pulmonary disease): Status: Acute Category: Medical Code(s): J44.9 - Chronic obstructive pulmonary disease, unspecified Plan: Continue patient's home Bretzi inhaler (8) Hyperlipidemia: Status: Acute Category: Medical Code(s): E78.5 - Hyperlipidemia, unspecified Plan: Continue patient's home dose of atorvastatin 40 mg p.o. daily (9) GERD (gastroesophageal reflux disease): Status: Acute Category: Medical Code(s): K21.9 - Gastro-esophageal reflux disease without esophagitis Plan: Continue patient's home dose of Protonix 40 mg p.o. daily (10) Diabetes: Status: Acute Category: Medical Code(s): E11.9 - Type 2 diabetes mellitus without complications Plan: Blood glucose on admission 170 Continue sliding scale insulin Blood glucose monitoring ACHS ADA diet (11) Immunocompromised patient: Status: Acute Category: Medical Code(s): D84.9 - Immunodeficiency, unspecified Plan: Patient is currently on chemotherapy for small cell lung cancer Plan Hospital medicine consulted by Dr. Dash Joya for admission. My decision to admit based on cellulitis, fever, needing sepsis criteria, immunocompromise state, need for wound care.
[2024-11-25 01:43] LABS: Lactic Acid Follow Up (RFLX 1) 1.2 mmol/L (0.7-2.1)
[2024-11-25] MEDS: VANCOMYCIN CONSULT REQUEST 1 EACH NOTAPPLIC (02:41)
--- NOTE | 2024-11-25 04:41 | PC.NURSE ---
[facility] patient. patient is a&o x 4, wears 2L NC HS PRN since coming from the ED, but now currently on RA. very pleasant, able to walk to the toilet with a standby assist. BA on r/t recent fall on 11/15.
[2024-11-25 06:28] LABS: POC Glucose,Bedside 176 (70-110)
--- NOTE | 2024-11-25 06:49 | PC.NURSE ---
patient stated she was freezing - room temp turned up earlier and room very warm, numerous blankets on - afebrile 98.9F orally
[2024-11-25 06:51] LABS: Hematocrit 25.3 % (37.0-47.0); Hemoglobin 7.9 g/dL (12.2-16.2); Immature Granulocytes % 3.7 %; Mean Corpuscular HGB Conc 31.2 g/dL (31.8-35.4); Mean Corpuscular Hemoglobin 29.8 pg (27.0-31.2); Mean Corpuscular Volume 95.5 fl (81-99); Nucleated Red Blood Cells % 0.7 %; Platelet Count 63 K/mm3 (142-424); Red Blood Count 2.65 M/mm3 (4.20-5.40); Red Cell Distribution Width-SD 65.7 fL; White Blood Count 7.5 K/mm3 (4.8-10.8)
[2024-11-25 07:04] LABS: Anion Gap 13.2 mEq/L (5-15); Blood Urea Nitrogen 5 mg/dl (7-17); Calcium 8.5 mg/dl (8.4-10.2); Carbon Dioxide 29 mmol/L (22.0-30.0); Chloride 101 mmol/L (98-107); Creatinine Clearance Estimated 54 mL/min (50-200); Creatinine,Serum 0.60 mg/dl (0.52-1.04); Estimated Glomerular Filt Rate 101 ml/min (>60); GFR (African American) 122 ML/MIN (>60); Glucose 176 mg/dl (74-100); Potassium 3.2 mmoL/L (3.5-5.1); Sodium 140 mmol/L (136-145)
--- NOTE | 2024-11-25 07:27 | EXP.PHA.CONS ---
Pharmacy Consult Date: 11/25/24 Time: 07:27 Referring provider: DR. KLEIN Reason for Consult:: VANCOMYCIN DOSING Allergies Allergy/AdvReac Type Severity Reaction Status Date / Time cephalexin (From KEFLEX) Allergy Unknown Verified 04/19/23 09:37 lisinopril (LISINOPRIL) Allergy Unknown Verified 04/19/23 09:37 meloxicam (MELOXICAM) Allergy Unknown Verified 04/19/23 09:37 Home Medications ?Medication ?Instructions ?Recorded ?Confirmed ?Type atorvastatin 40 mg tablet 40 mg PO DAILY Cholesterol 07/11/17 11/24/24 History calcium carbonate 500 mg PO QID PRN Heartburn 07/11/17 11/24/24 History cyanocobalamin (vitamin B-12) 1,000 mcg PO DAILY [facility] 07/11/17 11/24/24 History 1,000 mcg tablet glucosamine sulfate dipotassium Cl 1 ea PO DAILY [facility] 07/11/17 11/25/24 History 500 mg-chondroitin 400 mg capsule (Glucosamine Sulfate 2 KCL-Chondroitin) metformin 500 mg tablet 100 mg PO BID Diabetes 07/11/17 11/25/24 History gabapentin 600 mg tablet 600 mg PO QID Pain 02/01/23 11/25/24 History pantoprazole 40 mg tablet,delayed 40 mg PO DAILY gerd 02/01/23 11/25/24 History release benzonatate 100 mg capsule 100 mg PO TID PRN cough #30 caps 03/19/24 11/24/24 Rx acetaminophen 325 mg tablet 650 mg PO Q6 PRN Pain (Scale Score 11/24/24 11/25/24 History 1-3) budesonide 160 mcg-glycopyr 9 2 inh inhalation BID 11/24/24 11/24/24 History mcg-formot 4.8 mcg/actuation HFA inhaler (Breztri Aerosphere) cetirizine 10 mg tablet 10 mg PO DAILY 11/24/24 11/24/24 History estradiol 0.01% (0.1 mg/gram) 2 g vaginal DAILY 11/24/24 11/25/24 History vaginal cream ferrous sulfate 325 mg (65 mg 325 mg PO DAILY 11/24/24 11/25/24 History iron) tablet fluoxetine 40 mg capsule 40 mg PO DAILY 11/24/24 11/25/24 History glucose 4 gram chewable tablet 4 g PO Q15M PRN Hypoglycemia 11/24/24 11/25/24 History hydroxyzine HCl 25 mg tablet 25 mg PO TID PRN . 11/24/24 11/25/24 History lidocaine 5 % topical ointment 1 applic topical BID 11/24/24 11/25/24 History magnesium oxide 400 mg PO BID 11/24/24 11/25/24 History melatonin 10 mg tablet 10 mg PO HS PRN Insomnia 11/24/24 11/25/24 History metoprolol tartrate 50 mg tablet 50 mg PO BID 11/24/24 11/24/24 History montelukast 10 mg tablet 10 mg PO HS 11/24/24 11/25/24 History mupirocin 2 % topical ointment 1 applic topical BID 11/24/24 11/25/24 History nystatin 100,000 unit/gram topical 1 applic topical BID 11/24/24 11/25/24 History powder ofloxacin 0.3 % ear drops 1 drp otic (ear) BID 11/24/24 11/25/24 History ondansetron HCl 8 mg tablet 8 mg PO BID 11/24/24 11/25/24 History prochlorperazine maleate 10 mg 10 mg PO Q6 PRN Nausea And Vomiting 11/24/24 11/25/24 History tablet rivaroxaban 20 mg tablet (Xarelto) 20 mg PO HS 11/24/24 11/24/24 History sitagliptin 50 mg tablet 50 mg PO DAILY 11/24/24 11/25/24 History New Prescriptions to Start Prescriptions: Height: 1.68 m Weight: 116.743 kg Laboratory Results:: Laboratory Results - last 24 hr 11/24/24 20:56: WBC 11.3 H, RBC 2.82 L, Hgb 8.3 L, Hct 26.5 L, MCV 94.0, MCH 29.4, MCHC 31.3 L, RDW 19.6 H, Plt Count 61 L, MPV 9.8, Neut % (Auto) 78.1, Lymph % (Auto) 11.2, [place] % (Auto) 5.9, Eos % (Auto) 1.1, Baso % (Auto) 0.4, Neut # (Auto) 8.8 H, Lymph # (Auto) 1.3, [place] # (Auto) 0.7, Eos # (Auto) 0.1, Baso # (Auto) 0.1, Sodium 137, Potassium 3.2 L, Chloride 98, Carbon Dioxide 28, Anion Gap 14.2, BUN 5 L, Creatinine 0.70, Estimated Creat Clear 91, Estimated GFR 85, Est GFR ( Amer) 102, Glucose 170 H, Calcium 8.5, Total Bilirubin 0.8, AST 24, ALT 22, Alkaline Phosphatase 109, C-Reactive Protein 85.8 H, Total Protein 6.2 L, Albumin 3.2 L, Globulin 3.0, Albumin/Globulin Ratio 1.1, Procalcitonin 0.166 11/24/24 21:05: SARS-CoV-2 (PCR) Not detected, Influenza A Untype (PCR) Not detected, Influenza Type B (PCR) Not detected 11/24/24 21:06: VBG pH 7.45 H, VBG pCO2 35.3, VBG pO2 72.8 H, VBG HCO3 23.9, VBG Total CO2 25.0, VBG O2 Saturation 94.6 H, VBG Base Excess -0.1, VBG Lactic Acid 2.7 H 11/24/24 21:19: Urine Color Yellow, Urine Appearance Clear, Urine pH 6.5, Ur Specific [place] 1.010, Urine Protein Negative, Urine Glucose (UA) Negative, Urine Ketones Negative, Urine Blood Negative, Urine Nitrate Negative, Urine Bilirubin Negative, Urine Urobilinogen 0.2, Ur Leukocyte Esterase Negative, Urine RBC 3-5, Urine WBC 10-20, Ur Squamous Epith Cells 10-20, Urine Bacteria Trace 11/25/24 01:28: Lactate 1.2 11/25/24 06:21: POC Glucose 176 H 11/25/24 06:35: WBC 7.5 D, RBC 2.65 L, Hgb 7.9 L, Hct 25.3 L, MCV 95.5, MCH 29.8, MCHC 31.2 L, RDW 19.6 H, Plt Count 63 L, MPV 11.5 H, Neut % (Auto) 79.4, Lymph % (Auto) 8.4 L, [place] % (Auto) 6.1, Eos % (Auto) 1.6, Baso % (Auto) 0.8, Neut # (Auto) 5.9, Lymph # (Auto) 0.6 L, [place] # (Auto) 0.5, Eos # (Auto) 0.1, Baso # (Auto) 0.1, Sodium 140, Potassium 3.2 L, Chloride 101, Carbon Dioxide 29, Anion Gap 13.2, BUN 5 L, Creatinine 0.60, Estimated Creat Clear 54, Estimated GFR 101, Est GFR ( Amer) 122, Glucose 176 H, Calcium 8.5 Medical History: Medical History (Updated 11/25/24 @ 01:56 by Anjali Hernandez APRN) GERD (gastroesophageal reflux disease) Diabetes Hyperlipidemia Obesity Falls Cellulitis of knee, left Insomnia COPD (chronic obstructive pulmonary disease) Chemotherapy management, encounter for Brain cancer Assessment and Plan Assessment and plan all Dx Assessment and Plan for all problems:: Pharmacokinetic dosing service Objective: Patient: Floor: Age: 63 yo Serum creatinine: 0.60 mg/dL Height: 66.1 Inches Weight (kg): 116 Assessment: IBW (kg): 59.53 Dosing wt(kg): 116 Estimated Creatinine clearance (ml/min): 90.2 CRCL method: Cockcroft and Gault using ibw(default). Drug selected: Vancomycin Loading dose (mg): Vd (liters): 92.8 (factor used: 0.8 L/kg) Ministerio (hr-1): 0.079 Half life (hrs): 8.77 CLvanco=?? 7.331 L/hr Recommended dose: 2000 mg Interval: 12 hrs Infusion time (hrs): 2.0 Predicted peak (mcg/mL): 32.5 Predicted trough (mcg/mL): 14.75 Total body weight is being used for vancomycin dosing. Recommendations: Give Vancomycin 2000 mg q 12 hrs with an expected Cpeak of 32.5 mcg/ml and an expected Ctrough of 14.75 mcg/ml AUC 0-24 /DONAVAN Data: DONAVAN 0.5 mcg/mL:?? AUC/DONAVAN:? 1091.3 DONAVAN 1.0 mcg/mL:?? AUC/DONAVAN:? 545.6 --------- DONAVAN 1.5 mcg/mL:?? AUC/DONAVAN:? 363.8 DONAVAN 2.0 mcg/mL:?? AUC/DONAVAN:? 272.8 Thank you for the consult, will continue to follow. -RAHEEM ESPINOSA, GAILD
--- NOTE | 2024-11-25 08:06 | HMH.PTEV ---
Physical Therapy Evaluation Rehab PT IP Evaluation Start: 11/24/24 23:46 Freq: .once Status: Active Protocol: Document 11/25/24 08:00 FARHAN (Rec: 11/25/24 08:06 FARHAN [id number]) Subjective/History History History Per H&P: Ms. Rivera is a 63-year-old female presents ER for evaluation of a fever. 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 Patient had a fall and sustained a subdural hemorrhage to which she was transferred to . At the time of the fall she scraped her left knee. She states that her son took her temperature and it was 105 today prompting her to get evaluated at the ER. She reports pain, erythema, and warmth to left knee. She states she noticed the redness got worse over the last 3 to 4 days. Patient states she saw some clear drainage and recently some yellow drainage coming from the wound. She reports her knee pain is 7 out of 10. She states she did have chills earlier today. Patient denies cough, congestion, runny nose, dyspnea, chest pain, abdominal pain, nausea, vomiting, diarrhea, constipation, headache, lightheadedness, dizziness, or syncope. Subjective Subjective PLOF: IND with household level ambulation. Uses a RW some. Still driving. On 2 L supplemental O2. HOME: Lives alone in a single-story home with [address] [facility] and [facility]. [facility] How much help from another person do you currently need... Turning from your None back to your side while in a flat bed without using bedrails? Moving from lying on None back to sitting on the side of a flat bed without using bedrails? Moving to and from a None bed to a chair ( including a wheelchair)? Standing up from a None chair using your arms? (e.g., wheelchair, bedside chair) Walking in hospital A little room? Climbing 3-5 steps A little with a railing? Mobility Score 22 Mobility Level [facility] Mobility 7 Walk 25 feet or more Mobility Calculator Rehab PT IP Eval Objective Appearance Patient Behavior Appropriate,Cooperative Patient Orientation Person,Situation Difficulty following none instructions Speech Pattern Clear Ambulation Patient Able to Yes Ambulate Ambulation Observation IP General Gait Antalgic Gait Pattern Observation Ambulation Distance 20 (feet) Ambulation Ability Supervision/Stand by Balance Ability to Arise Able, uses arms to help Sitting Balance Steady, safe Standing Balance Steady, wide stance Dynamic Sitting Good Balance Ability Dynamic Standing Fair Balance Ability Transfers Bed Transfer Ability Supervision/Stand by Sit to Stand Bed Supervision/Stand by Transfer Ability Rehab PT IP prob,goals,plan Problems Date of Evaluation: 11/25/24 Rehab Potential Rehab Potential Innapropriate for Skilled Therapy Discharge Plan PT Discharge Plan Pt presents below baseline in endurance. Pt demo'd safe household level ambulation using RW. Pt most appropriate to d/c home with use of RW for all OOB activity d/t current level of mobility. Pt not appropriate for skilled acute care PT at this time d/t mobility being at baseline. PT recommending HH or OP PT services to address general strength and endurance deficits. Eval Complexity Eval Charge Codes 91532 - Moderate Complexity PHYSICIAN CERTIFICATION: I certify the specified therapy services for Teresa Rivera are required, authorized, and reviewed every 30 days.
--- NOTE | 2024-11-25 08:08 | HMH.PHAINT1 ---
Pharmacy Intervention Comments: HOME MEDICATION LIST VERIFIED USING LIST FROM OUTPATIENT PHARMACY
[2024-11-25] MEDS: SODIUM CHLORIDE 3% 15ML NEB 3 ML IH (09:10)
--- NOTE | 2024-11-25 09:52 | MR_ITS ---
FINAL REPORT TECHNIQUE: Multiplanar MR without contrast CLINICAL HISTORY: Eval for septic join, overlying cellulitis FINDINGS: Significant motion artifact is noted. Articular cartilage: Moderate diffuse thinning. Marrow signal: Multiple bone infarcts involving the proximal tibia and distal femur. Some of these extend to the articular surface. Joint fluid: Small joint effusion. Menisci: Small oblique tear posterior horn medial meniscus. Lateral meniscus is intact. Ligaments: Collateral, cruciate and patellofemoral ligaments intact Tendons: Quadriceps and patellar tendon normal Complex fluid collection in the prepatellar region which measures 43 x 11 x 24 mm. This could represent a hematoma, bursitis, including septic bursitis or abscess. IMPRESSION: No evidence of osteomyelitis or septic arthritis. Multiple bone infarcts. Complex prepatellar fluid collection with differential as above. Reviewed, Interpreted and Dictated by Ulises Clemente MD Transcribed by Fabienne Simon Authenticated and [facility]
[2024-11-25] MEDS: METOPROLOL TARTRATE 50MG TABLET 50 MG PO (10:03)
[2024-11-25] MEDS: DOCUSATE SODIUM 100 MG CAPSULE PO (10:03)
[2024-11-25] MEDS: SITAGLIPTIN 50MG TABLET 50 MG PO (10:03)
[2024-11-25] MEDS: FLUOXETINE 20MG CAPSULE 40 MG PO (10:04)
[2024-11-25] MEDS: LORATADINE 10MG TABLET 10 MG PO (10:04)
[2024-11-25] MEDS: FERROUS SULFATE 325MG TABLET 325 MG PO (10:04)
[2024-11-25] MEDS: POTASSIUM CHLORIDE 20MEQ TAB 40 MEQ PO (10:04)
[2024-11-25] MEDS: MAGNESIUM OXIDE 400MG TABLET 400 MG PO ×2 (10:04→20:28)
[2024-11-25] MEDS: OFLOXACIN 0.3% OTIC SOLUTION 5ML OT ×2 (10:06→20:29)
[2024-11-25] MEDS: GABAPENTIN 600MG TABLET 600 MG PO ×4 (10:14→20:28)
[2024-11-25] MEDS: VANCOMYCIN HCL 2,000 MG in 0.9 % SODIUM CHLORIDE 250 ML 125 MG IV ×2 (10:14→22:23)
[2024-11-25 10:31] LABS: NT Pro Brain Natriuretic Pep. 1050 pg/mL (0-125)
--- NOTE | 2024-11-25 10:48 | HMH.OTEV ---
OT Inpatient Evaluation Rehab OT IP Evaluation Start: 11/24/24 23:46 Freq: ONCE Status: Active Protocol: Document 11/25/24 10:43 [facility] (Rec: 11/25/24 10:48 [facility] [id number]) Rehab OT IP Assessment Subjective History Per H&P: Ms. Rivera is a 63-year-old female presents ER for evaluation of a fever. 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 Patient had a fall and sustained a subdural hemorrhage to which she was transferred to . At the time of the fall she scraped her left knee. She states that her son took her temperature and it was 105 today prompting her to get evaluated at the ER. She reports pain, erythema, and warmth to left knee. She states she noticed the redness got worse over the last 3 to 4 days. Patient states she saw some clear drainage and recently some yellow drainage coming from the wound. She reports her knee pain is 7 out of 10. She states she did have chills earlier today. Patient denies cough, congestion, runny nose, dyspnea, chest pain, abdominal pain, nausea, vomiting, diarrhea, constipation, headache, lightheadedness, dizziness, or syncope. Subjective PLOF: IND with household short distance transfers. Uses a RW some. Still driving. On 2 L supplemental O2. Pt claims she is normally independent with most ADLs. Family assists with all IADLs. Family is also taking turns staying with her to assist as needed. HOME: Lives alone in a single-story home with 4 BULMARO and HRs. Objective Patient Orientation Person,Place,Birthday Right Upper WFL Extremity Gross ROM Left Upper Extremity WFL Gross ROM Bed Mobility bed mobility-scooting,bed mobility - supine/sit Assist Level Supervision/Stand by Transfer Training Sit/Stand Transfer Assist Level Supervision/Stand by Lower Body Dressing Standby Assistance Ability Performing Toilet Standby Assistance Hygiene Ability Overall Commode/ Standby Assistance Toilet Transfer Ability Commode/Toilet Sit to/from Ambulatory Transfer Technique Rehab OT IP prob,goals,plan Problems Date of Evaluation: 11/25/24 Rehab Potential Rehab Potential Innapropriate for Skilled Therapy Discharge Plan OT Discharge Plan Pt appear to be at her baseline with functional transfers and ADL independence. Pt can return home with continued family assistance once she is medically stable per physician. Eval Complexity Eval Charge Codes 59639 - Moderate Complexity PHYSICIAN CERTIFICATION: I certify the specified therapy services for Teresa Rivera are required, authorized, and reviewed every 30 days.
[2024-11-25] MEDS: humaLOG 100 UNITS/ML 10ML VIAL (SSI) SUBCUT ×2 (11:57→17:11)
[2024-11-25 12:10] LABS: POC Glucose,Bedside 177 (70-110)
--- NOTE | 2024-11-25 12:22 | CA_ITS ---
APPROVED REPORT EXAM: Comprehensive 2D, Doppler, and color-flow Echocardiogram Rib Bender: Ewa Nguyen CRT Ht: 5 ft 6 in Wt: 257lbs BSA: 2.22 BP: 96/40 mmHg Indications: increased BNP, Sepsis chemotherapy, lung CA, brain CA 2D Dimensions LA Volume 54.00 mL LA Volume Index 23.70 mL/m2 (M/F) 16-34 M-Mode Dimensions RVDd 2.54 cm (0.9-2.6) LA Diam 3.92 cm (1.9-4.0) LVDd 5.28 cm (3.5-5.7) LVDs 2.92 cm (3.5-5.7) IVSd 1.78 cm (0.6-1.1) PWd 1.06 cm (0.6-1.1) EF (Teich) 75.60% FS 44.70% EDV (Teich) 134.20 mL TAPSE 2.22 (<1.7) ESV (Teich) 32.80 mL LV Diastology E Decel Time 200 (160-240 msec) E/A Ratio 0.86 MED A' 10.40 cm/s LAT A' 16.80 cm/s Aortic Valve PARIS Index 1.39 cm2/m2 AoV Peak Griffin. 157.0 (50-130 cm/s) AO Peak GR. 9.90 mmHg AO Mean GR. 5.50 (<5 mmHg) AO VTI 28.0 (18-25 cm) PARIS (VTI) 3.16 (2.5-4.5 cm2) Mitral Valve MV E Max Griffin. 87.0 (40-130 cm/s) MV A Velocity 101.0 (40-130 cm/s) E/A Ratio 0.86 MV PHT 59.0 ms Pulmonary Valve PV Peak Velocity 165.0 (50-150 cm/s) Tricuspid Valve TR P. Velocity 245.00 cm/s RAP Estimate 10.00 mmHg RVSP 34.10 mmHg Left Ventricle The left ventricle is normal size. Left ventricular systolic function is mild to moderately decreased. There is increased LV wall thickness. There is mild to moderate global hypokinesis. Grade 2 diastolic dysfunction is present. LVEF is 40%. Right Ventricle The right ventricle is normal size. The right ventricular systolic function is normal. Atria Left atrium is moderately dilated. Right atrium is moderately dilated. There is no Doppler evidence of interatrial shunt. Aortic Valve The aortic valve is mildly thickened. There is no aortic valvular stenosis. Trace aortic regurgitation. Mitral Valve The mitral valve is mildly thickened. No evidence of mitral valve stenosis. Mild mitral regurgitation. Tricuspid Valve Tricuspid valve is grossly normal in structure and function. Trace tricuspid regurgitation. There is insufficient TR jet to estimate RVSP. Pulmonic Valve The pulmonary valve is normal in structure. Trace pulmonic regurgitation. Great Vessels The aortic root is normal in size. IVC is normal in size and collapses >50% with inspiration. Pericardium There is no pericardial effusion. Other Information Study Quality: Fair Conclusion Mild to moderate reduction in LV systolic function (LVEF 40%). Grade 2 diastolic dysfunction is present. Biatrial dilation. Mild MR. Electronically signed by : Karen Beebe MD 11/25/2024 17:22:44
[2024-11-25] MEDS: PIPERACILLIN/TAZO 4.5 GM in 0.9 % SODIUM CHLORIDE 100 ML IV ×2 (13:44→17:18)
[2024-11-25] MEDS: FUROSEMIDE 40MG/4ML VIAL 40 MG IV (13:45)
--- OUTSIDE RECORDS SUMMARY | 2024-11-25 15:44 | XMS_ITS | Encounter Summary ---
Author Organization Healthcare Address [address] [place] [address] Care Team Providers Care Upholstery Sewer Name Role Phone Laurie Gutierrez MD Primary Care Provider Joshua Martínez MD Unavailable Jasmina Smith LPN Unavailable Unavailable Encounter Details Date Type Department Care Team (Late st Contact Info) Description 10/31/2024 Orders Only [facility] [id number] [place] [address] Radiation Oncology, Physician, [address] [place], [place] [id number] Social History Tobacco Use Types Packs/Day Years [...] [facility] the [facility] were [facility] homeless or living [...] drink first t laurie in the morning (EYE-POLICE OFFICER BOOKING) to steady your nerves or to get [...] [facility] Res[facility] [address] [facility], 2nd [place] [address] 11/29/2024 11:00 AM EDT Office Visit [facility] [address] [facility], 2nd [place] [address] Satnam Colvin MD [address] [facility] [address] [place] [address] 11/29/2024 12:30 PM EDT Appointment [facility] 1 [address] [place] [address] 11/30/2024 1:30 PM EDT Appointment [facility] 1 [address] [place] [address] 12/01/2024 2:00 PM EDT Appointment [facility] [address] [place] [address] 12/06/2024 11:40 AM EDT Appointment [facility] Rad[facility] [address] [facility]. [address] [place] [address] Haven Blum, FOILING MACHINE ADJUSTER [address] [facility] [address] [place] [address] 01/19/2025 9:30 AM EDT Appointment [facility] S Radiology [address], 1st [place] [address] 01/19/2025 10:45 AM EDT [facility] Visit [facility] [address], [address]st [place] [address] Abhilash Bangura MD [address] [place] [address] 03/08/2025 1:00 PM EDT Office Visit [facility] [place] [address] [facility]. [address] [place] [address] Teresita Oconnell MD [address] [place] [address] documented as of this encounter [...] documented as of this encounter Care Teams Upholstery Sewer Relationship Specialty Start Date End Date Laurie Gutierrez MD [address] [place] [address] PCP - General 12/09/23 Joshua Martínez MD [address] [place] [address] [address] [place] [address] Consulting Physician Radiation Oncology 09/19/24 Jasmina Smith LPN VALUE-BASED [place] [address] TCM Nurse 10/19/24 11/01/24 documented as of this encounter
--- OUTSIDE RECORDS SUMMARY | 2024-11-25 15:44 | XMS_ITS | Referral Summary ---
Author Organization [employer] ([place], [place]) Address [address] [place] [address] Care Team Providers Care Money Market Clerk Name Role Phone Laurie Gutierrez MD Primary Care Provider [phone] Cecilio Barfield MD Unavailable [phone] Sriram Lobato MD Unavailable [phone] Allergies Active Allergy Reactions Criticality Noted [...] Influenza High Dose Preserva tive Free IM ([id number]) 02/14/2020 Influenza Quad-qiv Non Pf 03/13/2021,02/19/2017, 04/24/2014 [...] Date Tima rded Speak language other than [place] Islander at home Not on file 05/26/2023 Want [...] the next mammogram. At our facility, a [place] marker is positioned over a visible skin [...] family history of breast cancer. COMPARISON STUDY: [facility] 2021 and 2022 from [facility] FINDINGS: Craniocaudal and mediolateral oblique images [...] Recently Relevant to Health Maintenance Care Teams Money Market Clerk Relationship Specialty Start Date End Date Laurie Gutierrez MD [address] [place] [address] PCP - General Internal Medicine 04/03/22 Cecilio Barfield MD [address] [address] Radiation Oncologist Radiation Oncology 08/28/23 Sriram Lobato MD [address] [place] [address] [address] [place] [address] Referring Physician General Internal Medicine 11/24/23
--- OUTSIDE RECORDS SUMMARY | 2024-11-25 15:44 | XMS_ITS | Encounter Summary ---
Author Organization [employer] ([place], [place], [place], [place]) Address [address] [place] [address] Care Team Providers Care Information Security Architect Name Role Phone Laurie Gutierrez MD Primary Care Provider [phone] Cecilio Barfield MD Unavailable [phone] Sriram Lobato MD Unavailable [phone] Reason for Referral * Diagnostic X-Ray (Routine) - Closed Specialty Diagnoses / Procedures Referred By Contac t Referred To Contact Diagnoses Right hand pain Procedures XR humerus 2 views right Laurie Gutierrez MD [address] [place] [address] Phone: tel: fax: Referral ID Status Reason Start Date Expiration Date Visits Re quested Visits Authorized [id number] Closed 08/11/2022 02/07/2023 1 1 * Diagnostic X-Ray (Routine) - Closed Specialty Diagnoses / Procedures Referred By Contac t Referred To Contact Diagnoses Right hand pain Procedures XR hand 3 views right Laurie Gutierrez MD [address] [place] [address] Phone: tel: fax: Referral ID Status Reason Start Date Expiration Date Visits Re quested Visits Authorized [id number] Closed 08/11/2022 02/07/2023 1 1 Encounter Details Date Type Department Care Team (Late st Contact Info) Description 08/11/2022 Outside Orders [facility] Admitting [address] [place] [address] Laurie Gutierrez MD [address] [place] [address] Right hand pain (Primary Dx) Social History [...] Kianna Tucker (Nia). us Laurie Gutierrez MD [facility] DIAGNOSTIC IMAGING ORDERA BLES Final Result * [...] limb documented in this encounter Care Teams Information Security Architect Relationship Specialty Start Date End Date Laurie Gutierrez MD [address] [place] [address] PCP - General Internal Medicine 04/03/22 Cecilio Barfield MD [address] [facility] [address] [place] [address] Radiation Oncologist Radiation Oncology 08/28/23 Sriram Lobato MD [address] [facility] [address] [place] [address] Referring Physician General Internal Medicine 11/24/23 documented as of this encounter
--- OUTSIDE RECORDS SUMMARY | 2024-11-25 15:44 | XMS_ITS | Encounter Summary ---
Author Organization Healthcare Address [address] [place] [address] Care Team Providers Care Erosion Control Specialist Name Role Phone Laurie Gutierrez MD Primary Care Provider Joshua Martínez MD Unavailable Paradise Pacheco RN Unavailable Unavailab le Encounter Details Date Type Department Care Team (Late st Contact Info) Description 11/15/2024 Orders Only External Location [address] [place] [address] Regina Katz D, COMMUNITY SERVICE REPRESENTATIVE [address] [place] [address] Social History Tobacco Use Types [...] living in a usp (including now)? No 11/21/2024 CAGE ASSESSMENT Answer [...] drink first t laurie in the morning (EYE-RELEASE MANAGER) to steady your nerves or to [...] (Past 1 Month) No 025 7:39 AM Flro Santana RN 2. Non-Specific Active Suici radha [...] Respiratory [address] [facility], 2nd [place] [address] 11/29/2024 11:00 AM EDT Office Visit [facility] [address] [facility], 2nd [place] [address] Satnam Colvin MD [address] [facility] [address] [place] [address] 11/29/2024 12:30 PM EDT Appointment [facility] 1 [address] [place] [address] 11/30/2024 1:30 PM EDT Appointment [facility] 1 [address] [place] [address] 12/01/2024 2:00 PM EDT Appointment [facility] 1 [address] [place] [address] 12/06/2024 11:40 AM EDT Appointment [facility] Radiation [address] [facility]. [address] [place] [address] Haven Blum, COMMUNITY SERVICE REPRESENTATIVE [address] [facility] [address] [place] [address] 01/19/2025 9:30 AM EDT Appointment [facility] S Radiology [address], [address]st [place] [address] 01/19/2025 10:45 AM EDT Office Visit [place] [facility] [address], [address]st [place] [address] Abhilash Bangura MD [address] [place] [address] 03/08/2025 1:00 PM EDT Office Visit [facility] [place] [address] [place] [address] Teresita Oconnell MD [address] [place] [address] documented as of this encounter Procedures Procedure Name Priority Date/Time Associated Diagnosis Comments XR MSK OUTSIDE IMAGES 11/15/2024 2:42 PM EDT documented in this encounter Results * XR MSK OUTSIDE IMAGES (11/15/2024 2:42 PM EDT) Anatomical Region Laterality Modality Radiographic Carolyne ging 11/15/2024 2:42 PM EDT Regina Katz COMMUNITY SERVICE REPRESENTATIVE IMG XR PROCEDURES Final Res ult documented in this encounter Visit Diagnoses Not on filedocumented in this encounter Additional Health Concerns Infection Onset Date Last Indicated Resolved Time 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, BINDERY CUTTER OPERATOR Panic 10/26/2024 10/31/2024 Assessment Noted Time PHQ-9 Depression Total Score: 0 09/01/19 3:26 PM EDT A fall risk assessment has been complete d for the patient 11/10/2024 2:43 PM EDT A Body Mass Index follow-up plan has been documented for the patient 11/08/2024 5:14 PM EDT documented as of this encounter Care Teams Erosion Control Specialist Relationship Specialty Start Date End Date Laurie Gutierrez MD [address] [place] [address] PCP - General 12/09/23 Joshua Martínez MD [address] [place] [address] Consulting Physician Radiation Oncology 09/19/24 Paradise Pacheco, RN [facility] INTERVENTIONAL RADIOLOGY Registered Nurse 11/21/24 11/21/24 documented as of this encounter
--- OUTSIDE RECORDS SUMMARY | 2024-11-25 15:44 | XMS_ITS | Encounter Summary ---
Author Organization Healthcare Address [address] [place] [address] Care Team Providers Care Geography Professor Name Role Phone Laurie Gutierrez MD Primary Care Provider [phone] Joshua Martínez MD Unavailable Jasmina Smith LPN [...] time in the past 12 m [facility], were you homeless or living in a [...] time in the past 12 m [facility], were you homeless or living in a [...] drink first t laurie in the morning (EYE-EPIDEMIOLOGY INTERN) to steady your nerves or to get [...] Respiratory [address] [facility], 2nd [place] [address] 11/29/2024 11:00 AM EDT Office Visit [facility] Neck [facility] Res[facility] [address] [facility], 2nd [place] [address] Satnam Colvin MD [address] [facility] [address] [place] [address] 11/29/2024 12:30 PM EDT Appointment [facility] 1 [address] [place] [address] 11/30/2024 1:30 PM EDT Appointment [facility] 1 [address] [place] [address] 12/01/2024 2:00 PM EDT Appointment [facility] 1 [address] [place] [address] 12/06/2024 11:40 AM EDT Appointment [facility] Radiation [address] [facility]. [address] [place] [address] Haven Blum, DATA WAREHOUSING MANAGER [address] [place] [address] 01/19/2025 9:30 AM EDT Appointment [facility] [address], 1st [place] [address] 01/19/2025 10:45 AM EDT Office Visit [place] [facility] [address], [address]st [place] [address] Abhilash Bangura MD [address] [place] [address] 03/08/2025 1:00 PM EDT Office Visit [facility] [place] 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, DUSTER TENDER Panic 10/26/2024 10/31/2024 Assessment Noted Time PHQ-9 Depression Total Score: 0 09/01/19 25 3:26 PM EDT A fall risk assessment has been complete d for the patient 10/06/2024 2:29 PM EDT A Body Mass Index follow-up plan has been documented for the patient 10/31/2024 4:09 PM EDT documented as of this encounter Care Teams Geography Professor Relationship Specialty Start Date End Date Laurie Gutierrez MD [address] [place] [address] PCP - General 12/09/23 Joshua Martínez MD [address] [place] [address] Consulting Physician Radiation Oncology 09/19/24 Jasmina Smith LPN VALUE-BASED [place] [address] [facility] Nurse 10/19/24 11/01/24 documented as of this encounter
--- OUTSIDE RECORDS SUMMARY | 2024-11-25 15:44 | XMS_ITS | Encounter Summary ---
Author Organization [employer] ([place], [place], [place], [place]) Address [address] [place] [address] Care Team Providers Care Heart Doctor Name Role Phone Laurie Gutierrez MD Primary Care Provider [phone] Cecilio Barfield MD Unavailable [phone] Sriram Lobato MD Unavailable [phone] Reason for Referral * Ultrasound (Routine) - Closed Specialty Diagnoses / Procedures Referred By Contac t Referred To Contact Diagnoses Cyst of kidney, acquired Procedures US renal complete Anders Meredith MD [address] [place] [address] Phone: tel: fax: Referral ID Status Reason Start Date Expiration Date Visits Re quested Visits Authorized [id number] Closed 02/10/2023 08/09/2023 1 1 Encounter Details Date Type Department Care Team (Late st Contact Info) Description 02/10/[address] [facility] Central Scheduling [address] [place] [address] Anders Meredith MD [address] [address] Cyst of kidney, acquired (Primary [...] Date Tima rded Speak language other than [place] at home Not on file 05/26/2023 Want [...] Agustina Ceballos PA-C. us Anders Meredith MD [facility] US ORDERABLES Final Result documented in this encounter Visit Diagnoses Diagnosis Cyst of kidney, acquired- Primary Acquired cyst of kidney Cyst of kidney, acquired Acquired cyst of kidney documented in this encounter Care Teams Heart Doctor Relationship Specialty Start Date End Date Laurie Gutierrez MD [address] [place] [address] PCP - General Internal Medicine 04/03/22 Cecilio Barfield MD [address] [address] Radiation Oncologist Radiation Oncology 08/28/23 Sriram Lobato MD [address] [place] [address] [place] [address] Referring Physician General Internal Medicine 11/24/23 documented as of this encounter
--- OUTSIDE RECORDS SUMMARY | 2024-11-25 15:44 | XMS_ITS | Clinical Summary ---
Author Organization [employer] ([place]) Address [address] [place] [address] Care Team Providers Care Associate Embalmer/Funeral Director Name Role Phone Laurie Gutierrez MD Primary Care Provider [phone] Cecilio Barfield MD Unavailable [phone] Sriram Lobato MD Unavailable [phone] Allergies Active Allergy Reactions Criticality Noted [...] Influenza High Dose Preserva tive Free IM ([id number]) 02/14/2020 Influenza Quad-qiv Non Pf 03/13/2021,02/19/2017, 04/24/2014 [...] Date Tima rded Speak language other than [place] at home Not on file 05/26/2023 Want [...] 02/06/2021, 06/26/2020, Additional history exists Influenza Vaccine (#1) 2025 , 02/14/2020, 02/19/2017, Additional history exists Tobacco Cessation [...] the next mammogram. At our facility, a [place] marker is positioned over a visible skin [...] family history of breast cancer. COMPARISON STUDY: [facility] 2021 and 2022 from [facility] FINDINGS: Craniocaudal and mediolateral oblique images of both breasts were obtained in 2D, C-view, and 3D modes. The breast tissue has pattern b (scattered fibroglandular densities). There has been no change. There is no evidence of dominant mass, architectural distortion, or suspicious calcifications. Bilateral vascular calcifications are noted. This examination was reviewed with the benefit of computer-aided detection (CAD). us Yamilet Coleman PA-C IMG MAMMOGRAPHY ORDERABLES Final Result from Last 3 Months or Most Recently Relevant to Health Maintenance Care Teams Associate Embalmer/Funeral Director Relationship Specialty Start Date End Date Laurie Gutierrez MD [address] [place] [address] PCP - General Internal Medicine 04/03/22 Cecilio Barfield MD [address] [address] Radiation Oncologist Radiation Oncology 08/28/23 Sriram Lobato MD [address] [place] [address] [address] [place] [address] Referring Physician General Internal Medicine 11/24/23
--- OUTSIDE RECORDS SUMMARY | 2024-11-25 15:44 | XMS_ITS | Encounter Summary ---
Author Organization Healthcare Address [address] [place] [address] Care Team Providers Care Helper Shear Operator Name Role Phone Laurie Gutierrez MD Primary Care Provider [phone] Joshua Martínez MD Unavailable Jasmina Smith LPN Unavailable Unavailable Encounter Details Date Type Department Care Team (Late st Contact Info) Description 10/27/2024 Orders Only [facility] Radiation [address] [id number] [place] [address] Radiation Oncology, Physician, [address] [place], [place] [id number] Social History Tobacco Use Types Packs/Day Years [...] [facility] the [facility] were you homeless or living [...] time in the past [address] [facility], were you homeless or living [...] drink first t laurie in the morning (EYE-ENERGY TRADER) to steady your nerves or to get [...] [facility], 2nd [place] [address] 11/29/2024 11:00 AM EDT Office Visit Pav CC Head, Neck & Respiratory 800 [facility], 2nd [place] [address] Satnam Colvin MD 800 [facility] [address] [place] [address] 11/29/2024 12:30 PM EDT Appointment [facility] 1 [address] [place] [address] 11/30/2024 1:30 PM EDT Appointment [facility] 1 [address] [place] [address] 12/01/2024 2:00 PM EDT Appointment [facility] 1 [address] [place] [address] 12/06/2024 11:40 AM EDT Appointment [facility] Radiation 800 [facility]. [id number] [place] [address] Haven Blum, SLAG EXPANDER 800 [facility] [address] [place] [address] 01/19/2025 9:30 AM EDT Appointment PAV S Radiology [address], 1st [place] [address] 01/19/2025 10:45 AM EDT [facility] Visit [place] [facility] [address], 1st [place] [address] Abhilash Bangura MD [address] [place] [address] 03/08/2025 1:00 PM EDT Office Visit [facility] [place] 800 [facility]. [address] [place] [address] Teresita Oconnell MD [address] [place] [address] documented as of this encounter [...] documented as of this encounter Care Teams Helper Shear Operator Relationship Specialty Start Date End Date Laurie Gutierrez MD [address] [place] [address] PCP - General 12/09/23 Joshua Martínez MD [address] [place] [address] C114D [place] [address] Consulting Physician Radiation Oncology 09/19/24 Jasmina Smith LPN VALUE-BASED [place] [address] TCM Nurse 10/19/24 11/01/24 documented as of this encounter
--- OUTSIDE RECORDS SUMMARY | 2024-11-25 15:44 | XMS_ITS | Encounter Summary ---
Author Organization [employer] ([place], [place], [place], [place]) Address [address] [place] [address] Care Team Providers Care Oil House Attendant Name Role Phone Laurie Gutierrez MD Primary Care Provider [phone] Cecilio Barfield MD Unavailable [phone] Sriram Lobato MD Unavailable [phone] Encounter Details Date Type Department Care Team (Late st Contact Info) Description 02/27/2023 Outside Orders [facility] 1 [place] [address] Keegan Palacios APRN [address] [place], [place] [id number] Screening mammogram, encounter for (Primary Dx) Social [...] Date Tima rded Speak language other than Serbian at home Not on file 05/26/2023 Want [...] Primary documented in this encounter Care Teams Oil House Attendant Relationship Specialty Start Date End Date Laurie Gutierrez MD [address] [place] [address] PCP - General Internal Medicine 04/03/22 Cecilio Barfield MD [address] [address] Radiation Oncologist Radiation Oncology 08/28/23 Sriram Lobato MD [address] [place] [address] Referring Physician General Internal Medicine 11/24/23 documented as of this encounter
--- OUTSIDE RECORDS SUMMARY | 2024-11-25 15:44 | XMS_ITS | Encounter Summary ---
Author Organization Healthcare Address [address] [place] [address] Care Team Providers Care Ocular Care Technician Name Role Phone Laurie Gutierrez MD Primary Care Provider [phone] Joshua Martínez MD Unavailable Jasmina Smith LPN Unavailable Unavailable Encounter Details Date Type Department Care Team (Late st Contact Info) Description 11/01/2024 Orders Only [facility] Radiation [address] [id number] [place] [address] Radiation Oncology, Physician, [address] [place], [place] [id number] Social History Tobacco Use Types Packs/Day Years [...] any time in the [facility] 12 m [facility], were you homeless or living [...] drink first t laurie in the morning (EYE-KILN FIRER) to steady your nerves or to get [...] Upcoming Encounters Date Type Department Care Team ([facility] st Contact Info) Description 11/29/2024 10:30 AM EDT Clinical Support Pav CC Head, Neck & Respiratory 800 [facility], [address] [place] [address] 11/29/2024 11:00 AM EDT Office Visit Pav CC Head, Neck & Respiratory [address] [facility], [address] [place] [address] Satnam Colvin MD [address] [facility] N[address] [facility] [address] [place] [address] 11/29/2024 12:30 PM EDT Appointment [facility] 1 [address] [place] [address] 11/30/2024 1:30 PM EDT Appointment [facility] 1 [address] [place] [address] 12/01/2024 2:00 PM EDT Appointment [facility] [address] [place] [address] 12/06/2024 11:40 AM EDT Appointment [facility] Radiation [address] [id number] [place] [address] Haven Blum, WASTE MACHINE OPERATOR [address] [place] [address] 01/19/2025 9:30 AM EDT Appointment P[facility] S Radiology [address], 1st [place] [address] 01/19/2025 10:45 AM EDT Office Visit [place] [facility] [address], 1st [place] [address] Abhilash Bangura MD [address] [place] [address] 03/08/2025 1:00 PM EDT Office Visit [facility] [place] 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, CHIMNEY CONSTRUCTION SUPERVISOR Panic 10/26/2024 10/31/2024 Assessment Noted Time PHQ-9 Depression Total Score: 0 09/01/19 3:26 PM EDT A fall risk assessment has been complete d for the patient 10/06/2024 2:29 PM EDT A Body Mass Index follow-up plan has been documented for the patient 10/31/2024 4:09 PM EDT documented as of this encounter Care Teams Ocular Care Technician Relationship Specialty Start Date End Date Laurie Gutierrez MD [address] [place] [address] PCP - General 12/09/23 Joshua Martínez MD [address] [place], [place] [id number] [place] [address] Consulting Physician Radiation Oncology 09/19/24 Jasmina Simth LPN VALUE-[place] [address] TCM Nurse 10/19/24 11/01/24 documented as of this encounter
--- OUTSIDE RECORDS SUMMARY | 2024-11-25 15:44 | XMS_ITS | Encounter Summary ---
Author Organization [employer] ([place], [place], [place], [place]) Address [address] [place] [address] Care Team Providers Care Environmental Health Aide Name Role Phone Laurie Gutierrez MD Primary Care Provider [phone] Cecilio Barfield MD Unavailable [phone] Sriram Lobato MD Unavailable [phone] Encounter Details Date Type Department Care Team (Late st Contact Info) Description 06/10/2024 Outside Orders [facility] [address] [place] [address] Provider, Not In System [place] [...] Date Tima rded Speak language other than Faroese at home Not on file 05/26/2023 Want [...] on filedocumented in this encounter Care Teams Environmental Health Aide Relationship Specialty Start Date End Date Laurie Gutierrez MD [address] [place] [address] PCP - General Internal Medicine 04/03/22 Cecilio Barfield MD [address] [address] Radiation Oncologist Radiation Oncology 08/28/23 Sriram Lobato MD [address] [place] [address] [place] [address] Referring Physician General Internal Medicine 11/24/23 documented as of this encounter
--- OUTSIDE RECORDS SUMMARY | 2024-11-25 15:44 | XMS_ITS | Encounter Summary ---
Author Organization Healthcare Address [address] [place] [address] Care Team Providers Care District Service Manager Name Role Phone Laurie Gutierrez MD Primary Care Provider [phone] Joshua Martínez MD Unavailable Jasmina Smith LPN Unavailable Unavailable Encounter Details Date Type Department Care Team (Late st Contact Info) Description 10/28/2024 Orders Only [facility] Radiation [address] [id number] [place] [address] Radiation Oncology, Physician, [address] [place], [place] [phone] Social History Tobacco Use Types Packs/Day Years [...] drink first t laurie in the morning (EYE-CONTRACT PREPARER) to steady your nerves or to [...] [facility], 2nd [place] [address] 11/29/2024 11:00 AM EDT Office Visit Pav CC Head, Neck & Respiratory 800 [facility], 2nd [place] [address] Satnam Colvin MD 800 [facility] [address] [place] [address] 11/29/2024 12:30 PM EDT Appointment [facility] 1 [address] [place] [address] 11/30/2024 1:30 PM EDT Appointment [facility] 1 [address] [place] [address] 12/01/2024 2:00 PM EDT Appointment [facility] 1 [address] [place] [address] 12/06/2024 11:40 AM EDT Appointment [facility] Radiation 800 [facility] [place] [id number] [place] [address] Haven Blum, CHILD CARE ASSISTANT 800 [facility] [address] [place] [address] 01/19/2025 9:30 AM EDT Appointment P[facility] S Radiology [address], 1st [place] [address] 01/19/2025 10:45 AM EDT Office Visit [place] [facility] [address], 1st [place] [address] Abhilash Bangura MD [address] [place] [address] 03/08/2025 1:00 PM EDT Office Visit [facility] [place] 800 [facility]. [address] [place] [address] Teresita Oconnell MD [address] [place] [address] documented as of this encounter [...] as of this encounter Care Teams District Service Manager Relationship Specialty Start Date End Date Laurie Gutierrez MD [address] [place] [address] PCP - General 12/09/23 Joshua Martínez MD [address] [place] [address] Consulting Physician Radiation Oncology 09/19/24 Jasmina Smith LPN VALUE-[place]ED [place] [address] TCM Nurse 10/19/24 11/01/24 documented as of this encounter
--- OUTSIDE RECORDS SUMMARY | 2024-11-25 15:44 | XMS_ITS | Encounter Summary ---
Author Organization Healthcare Address [address] [place] [address] Care Team Providers Care Manager Life Insurance Name Role Phone Laurie Gutierrez MD Primary Care Provider [phone] Joshua Martínez MD Unavailable Encounter Details Date [...] first t laurie in the morning (EYE-KILN DRAWER) to steady your nerves or to get rid of a hangover? 0 10/27/2024 CAGE Questionnaire Score 0 025 Utilities Answer Date Recorded In the past 12 months has e [employer], gas, oil, or water [employer] threatened to shut off services in your [...] Respiratory 800 [facility], 2nd [place] [address] 11/29/2024 11:00 AM EDT Office Visit Pav CC Head, Neck & Respiratory [address] [facility], 2nd [place] [address] Satnam Colvin MD 800 [facility] [address] [place] [address] 11/29/2024 12:30 PM EDT Appointment [facility] 1 [address] [place] [address] 11/30/2024 1:30 PM EDT Appointment [facility] 1 [address] [place] [address] 12/01/2024 2:00 PM EDT Appointment [facility] 1 [address] [place] [address] 12/06/2024 11:40 AM EDT Appointment [facility] CC Radiation [address] [facility]. [id number] [place] [address] Haven Blum, TEXTILE TECHNOLOGIST 800 [facility] [address] [place] [address] 01/19/2025 9:30 AM EDT Appointment P[facility] S Radiology [address], 1st [place] [address] 01/19/2025 10:45 AM EDT Office Visit [place] [facility] [address], 1st [place] [address] Abhilash Bangura MD [address] [place] [address] 03/08/2025 1:00 PM EDT Office Visit [facility] [place] 800 [facility]. 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 Panic 10/26/2024 10/31/2024 Assessment Noted Time PHQ-9 Depression Total Score: 0 09/01/19 25 3:26 PM EDT A fall risk assessment has been complete d for the patient 11/10/2024 2:43 PM EDT A Body Mass Index follow-up plan has been documented for the patient 11/08/2024 5:14 PM EDT documented as of this encounter Care Teams Manager Life Insurance Relationship Specialty Start Date End Date Laurie Gutierrez MD [address] [place] [address] PCP - General 12/09/23 Joshua Martínez MD [address] [place] [phone] Consulting Physician Radiation Oncology 09/19/24 documented as of this encounter
--- OUTSIDE RECORDS SUMMARY | 2024-11-25 15:44 | XMS_ITS | Encounter Summary ---
Author Organization Healthcare Address [address] [place] [address] Care Team Providers Care Epidemiology Intern Name Role Phone Laurie Gutierrez MD Primary Care Provider [phone] Joshua Martínez MD Unavailable Paradise Pacheco RN Unavailable Unavailab le Encounter Details Date Type Department Care Team (Late st Contact Info) Description 11/15/2024 Orders Only External Location [address] [place] [address] Provider, External Social History Tobacco Use Types [...] living in a mcc (including now)? No 11/21/2024 CAGE ASSESSMENT Answer [...] drink first t laurie in the morning (EYE-INVERTEBRATE PALEONTOLOGIST) to steady your nerves or to get rid of a hangover? 0 10/27/2024 CAGE Questionnaire Score 0 025 Utilities Answer Date Recorded In the past 12 months has e [employer], gas, oil, or water [employer] threatened to shut off services in your [...] Head, Neck & Respiratory 800 [facility], 2nd [place] [address] 11/29/2024 11:00 AM EDT Office Visit Pav CC Head, Neck & Respiratory 800 [facility], 2nd [place] [address] Satnam Colvin MD 800 [facility] [address] [place] [address] 11/29/2024 12:30 PM EDT Appointment [facility] 1 [address] [place] [address] 11/30/2024 1:30 PM EDT Appointment [facility] 1 [address] [place] [address] 12/01/2024 2:00 PM EDT Appointment [facility] 1 [address] [place] [address] 12/06/2024 11:40 AM EDT Appointment [facility] CC Radiation 800 [facility]. [id number] [place] [address] Haven Blum, HONEY PROCESSOR 800 [facility] [address] [place] [address] 01/19/2025 9:30 AM EDT Appointment [facility] S Radiology [address], 1st [place] [address] 01/19/2025 10:45 AM EDT Office Visit [place] [facility] [address], 1st [place] [address] Abhilash Bangura MD [address] [place] [address] 03/08/2025 1:00 PM EDT Office Visit [facility] [place] 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, PERIOPERATIVE EDUCATOR Panic 10/26/2024 10/31/2024 Assessment Noted Time PHQ-9 Depression Total Score: 0 09/01/19 25 3:26 PM EDT A fall risk assessment has been complete d for the patient 11/10/2024 2:43 PM EDT A Body Mass Index follow-up plan has been documented for the patient 11/08/2024 5:14 PM EDT documented as of this encounter Care Teams Epidemiology Intern Relationship Specialty Start Date End Date Laurie Gutierrez MD [address] [place] [address] PCP - General 12/09/23 Joshua Martínez MD 800 [facility] [address] [place] [address] Consulting Physician Radiation Oncology 09/19/24 Paradise Pacheco, RN CH-VASCULAR & INTERVENTIONAL RADIOLOGY Registered Nurse 11/21/24 11/21/24 documented as of this encounter
--- OUTSIDE RECORDS SUMMARY | 2024-11-25 15:45 | XMS_ITS | Encounter Summary ---
Author Organization Healthcare Address [address] [place] [address] Care Team Providers Care Staff Design Engineer Name Role Phone Laurie Gutierrez MD Primary Care Provider [phone] Joshua Martínez MD Unavailable Jasmina Smith LPN Unavailable Unavailable Reason for Visit * Reason Comments Resource Navigation Encounter Details Date Type Department Care Team (Late st Contact Info) Description 10/28/2024 Social Work Psych Oncology [address] [place] [address] Mariah Rowley Social History Tobacco Use Types [...] in the past 12 m [facility], were you homeless or living [...] in the past 12 m [facility], were you homeless or living [...] drink first t laurie in the morning (EYE-CERAMICS INSTRUCTOR) to steady your nerves or to [...] Visit Disease Status: Established Patient Clinic Location: [facility] Disease Type: Lung & Bronchus, Brain & Other Nervous System Education Provided: Lodging Intervention Level: 2 Units (1 unit = 15 minutes): 1 Narrative: HAIR SPINNER met with pt along with HAIR SPINNER [place] to follow up on VM regarding HL. Pt currently inpatient but wondering about staying at HL after discharge. Pt wanting to stay at HL while finishing radiation. HAIR SPINNER informed pt that a referral cannot be submitted while pt still inpatient and that once pt is discharged HAIR SPINNER can look into getting pt set up to stay. Pt voiced understanding and appreciation for the assistance. No further needs identified. HAIR SPINNER to remain available for any ongoing needs or support. HAIR SPINNER working with pt's inpatient care team to coordinate dc plan and determine when to submit HL referral. Mariah Rowley MSW, HAIR SPINNER [facility] Psych-Oncology Services documented in this encounter Plan of Treatment Upcoming Encounters Date Type Department Care Team ([facility] st Contact Info) Description 11/29/2024 10:30 AM EDT Clinical Support Pav CC Head, Neck & Respiratory 800 [facility], 2nd [place] [address] 11/29/2024 11:00 AM EDT Office Visit Pav CC Head, Neck & Respiratory 800 [facility], 2nd [place] [address] Satnam Colvin MD 800 [facility] [address] [place] [address] 11/29/2024 12:30 PM EDT Appointment [facility] 1 [address] [place] [address] 11/30/2024 1:30 PM EDT Appointment [facility] 1 [address] [place] [address] 12/01/2024 2:00 PM EDT Appointment [facility] 1 [address] [place] [address] 12/06/2024 11:40 AM EDT Appointment [facility] CC Radiation 800 [facility]. [id number] [place] [address] Haven Blum, SUPERVISOR ELECTRONIC COILS 800 [facility] [address] [place] [address] 01/19/2025 9:30 AM EDT Appointment PAV S Radiology [address], 1st [place] [address] 01/19/2025 10:45 AM EDT Office Visit [place] [facility] [address], 1st [place] [address] Abhilash Bangura MD [address] [place] [address] 03/08/2025 1:00 PM EDT Office Visit [facility] [place] [address] [place] [address] Teresita Oconnell MD [address] [place] [address] documented as of this encounter [...] documented as of this encounter Care Teams Staff Design Engineer Relationship Specialty Start Date End Date Laurie Gutierrez MD [address] [place] [address] PCP - General 12/09/23 Joshua Martínez MD [address] [place] [place] [address] Consulting Physician Radiation Oncology 09/19/24 Jasmina Smith LPN VALUE-BASED [place] [address] TCM Nurse 10/19/24 11/01/24 documented as of this encounter
--- OUTSIDE RECORDS SUMMARY | 2024-11-25 15:45 | XMS_ITS | Encounter Summary ---
Author Organization Healthcare Address [address] [place] [address] Care Team Providers Care Fisheries Biologist Name Role Phone Laurie Gutierrez MD Primary Care Provider [phone] Joshua Martínez MD Unavailable Jasmina Smith LPN [...] drink first t laurie in the morning (EYE-STITCHDOWN TOE FORMER) to steady your nerves or to get [...] & Respiratory 800 [facility], 2nd [place] [address] 11/29/2024 11:00 AM EDT Office Visit Pav CC Head, Neck & Respiratory 800 [facility], 2nd [place] [address] Satnam Colvin MD 800 [facility] [address] [place] [address] 11/29/2024 12:30 PM EDT Appointment [facility] 1 [address] [place] [address] 11/30/2024 1:30 PM EDT Appointment [facility] 1 [address] [place] [address] 12/01/2024 2:00 PM EDT Appointment [facility] 1 [address] [place] [address] 12/06/2024 11:40 AM EDT Appointment [facility] CC Radiation 800 [facility]. [id number] [place] [address] Haven Blum, PAINT SPECIALIST 800 [facility] [address] [place] [address] 01/19/2025 9:30 AM EDT Appointment P[facility] S Radiology [address], 1st [place] [address] 01/19/2025 10:45 AM EDT Office Visit [place] [facility] [address], 1st [place] [address] Abhilash Bangura MD [address] [place] [address] 03/08/2025 1:00 PM EDT Office Visit [facility] [place] 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 EXPERIMENTAL MEDICINE Panic 10/26/2024 10/31/2024 Assessment Noted Time PHQ-9 Depression Total Score: 0 09/01/19 25 3:26 PM EDT A fall risk assessment has been complete d for the patient 10/06/2024 2:29 PM EDT A Body Mass Index follow-up plan has been documented for the patient 10/31/2024 4:09 PM EDT documented as of this encounter Care Teams Fisheries Biologist Relationship Specialty Start Date End Date Laurie Gutierrez MD [address] [place] [address] PCP - General 12/09/23 Joshua Martínez MD [address] [place] [phone] Consulting Physician Radiation Oncology 09/19/24 Jasmina Smith LPN VALUE-[place]ED [place] [address] TCM Nurse 10/19/24 11/01/24 documented as of this encounter
--- OUTSIDE RECORDS SUMMARY | 2024-11-25 15:46 | XMS_ITS | Encounter Summary ---
Author Organization Healthcare Address [address] [place] [address] Care Team Providers Care Movie Extra Name Role Phone Laurie Gutierrez MD Primary Care Provider [phone] Joshua Martínez MD Unavailable Encounter Details Date Type Department Care Team (Late st Contact Info) Description 11/07/2024 Orders Only [facility] [id number] [place] [address] Radiation Oncology, Physician, [facility] [place] [address] Social History Tobacco Use Types Packs/Day Years [...] drink first t laurie in the morning (EYE-NUTRITION SERVICES WORKER) to steady your nerves or to [...] Respiratory [address] [facility], [address]nd [place] [address] 11/29/2024 11:00 AM EDT Office Visit [facility] Ne[facility] Respiratory [address] [facility], [address]nd [place] [address] Satnam Colvin MD [address] [facility] N[address] [facility] [address] [place] [address] 11/29/2024 12:30 PM EDT Appointment [facility] [address] [place] [address] 11/30/2024 1:30 PM EDT Appointment [facility] [address] [place] [address] 12/01/2024 2:00 PM EDT Appointment [facility] [address] [place] [address] 12/06/2024 11:40 AM EDT Appointment [facility] [address] [id number] [place] [address] Haven Blum, PENSION MANAGER [address] [facility] [id number] [place] [address] 01/19/2025 9:30 AM EDT Appointment [facility] [address], [address] [place] [address] 01/19/2025 10:45 AM EDT Office Visit [place] [facility] [address], [address] [place] [address] Abhilash Bangura MD [address] [place] [address] 03/08/2025 1:00 PM EDT Office Visit [facility] [place] [address] [place] [address] Teresita Oconnell MD [address] [place] [address] documented as of this encounter [...] Bacteri al Infection Comment:Pseudomonas aeruginosa MDR, RUBBER PRESS OPERATOR Panic 10/26/2024 10/31/2024 Assessment Noted Time PHQ-9 Depression Total Score: 0 09/01/19 3:26 PM EDT A fall risk assessment has been complete d for the patient 10/06/2024 2:29 PM EDT A Body Mass Index follow-up plan has been documented for the patient 10/31/2024 4:09 PM EDT documented as of this encounter Care Teams Movie Extra Relationship Specialty Start Date End Date Laurie Gutierrez MD [address] [place] [id number] PCP - General 12/09/23 Joshua Martínez MD [address] [place], [place] [id number] [place] [address] Consulting Physician Radiation Oncology 09/19/24 documented as of this encounter
--- OUTSIDE RECORDS SUMMARY | 2024-11-25 15:46 | XMS_ITS | Encounter Summary ---
Author Organization Healthcare Address [address] [place] [address] Care Team Providers Care Police Stenographer Name Role Phone Laurie Gutierrez MD Primary Care Provider [phone] Joshua Martínez MD Unavailable Encounter Details Date Type Department Care Team (Late st Contact Info) Description 11/07/2024 Orders Only [facility] [address] [id number] [place] [address] Radiation Oncology, Physician, [facility] [place] [address] Social History Tobacco Use Types Packs/Day Years [...] drink first t laurie in the morning (EYE-CARTOGRAPHY TECHNICIAN) to steady your nerves or to [...] Respiratory [address] [facility], [address]nd [place] [address] 11/29/2024 11:00 AM EDT Office Visit [facility] Head[facility] Neck [facility] Respiratory [address] [facility], [address]nd [place] [address] Satnam Colvin MD [address] [facility] Nuria Degroot [facility] [address] [place] [address] 11/29/2024 12:30 PM EDT Appointment [facility] [address] [place] [address] 11/30/2024 1:30 PM EDT Appointment [facility] [address] [place] [address] 12/01/2024 2:00 PM EDT Appointment [facility] [address] [place] [address] 12/06/2024 11:40 AM EDT Appointment [facility] [address] [id number] [place] [address] Haven Blum, FREEZER MACHINE OPERATOR [address] [facility] [address] [place] [address] 01/19/2025 9:30 AM EDT Appointment [facility] [address], [address] [place] [address] 01/19/2025 10:45 AM EDT Office Visit [place] [facility] [address], [address] [place] [address] Abhilash Bangura MD [address] [place] [address] 03/08/2025 1:00 PM EDT Office Visit [facility] [place] 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, COMMISSIONS ANALYST Panic 10/26/2024 10/31/2024 Assessment Noted Time PHQ-9 Depression Total Score: 0 09/01/19 3:26 PM EDT A fall risk assessment has been complete d for the patient 10/06/2024 2:29 PM EDT A Body Mass Index follow-up plan has been documented for the patient 10/31/2024 4:09 PM EDT documented as of this encounter Care Teams Police Stenographer Relationship Specialty Start Date End Date Laurie Gutierrez MD [address] [place] [id number] PCP - General 12/09/23 Joshua Martínez MD [address] [place], [place] [id number] [place] [address] Consulting Physician Radiation Oncology 09/19/24 documented as of this encounter
--- OUTSIDE RECORDS SUMMARY | 2024-11-25 15:46 | XMS_ITS | Data Portability ---
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 Name Role Phone SATYA GOTTI Primary Care Provider PERNELL ARAUJO Hematology/Oncology [phone] Assessment Encounter Date Assessment Date Assessment LastModified [...] Lab CMP, serum or plasma 2024 025 [email or web address] [facility], [address] [place] [address] [place], [address], 5 07:48:27 vitamin B12 + folate, serum or blood 2023 024 [facility], [address] [place] [address] [place], [address], 4 08:42:43 mma (methylmal onic acid), serum 2023 024 [facility], [address] [place] [address] [place], [address], 4 08:42:43 CMP, serum or plasma 2023 024 [facility], [address] [place] [address] [place], [address], 4 08:42:43 CBC w/ auto diff 2023 024 [facility], [address] [place] [address] [place], [address], 4 08:42:43 TSH + free T4, serum 2023 [facility] (Lab Registration) , [address] [place] [address] [place], [address], 4 08:42:43 vitamin D, 25-hydroxy , total, serum 2023 024 [facility] (Lab Registration) , [address] [place] [address] [place], [address], 4 12:01:45 Referral None recorded. Procedures None recorded. Surgeries None recorded. Imaging CT, chest, w/ contrast 2024 025 [facility] (Central Scheduling), [address] [place] [address] [place], [address], 5 04:19:09 CT, chest + abdomen + pelvis, w/ contrast - iv contrast only 2024 025 [facility] (Central Scheduling), [address] [place] [address] [place], [address], 5 13:32:07 PET-CT, skull base to mid-thigh scan 2023 024 [facility] (Central Scheduling), [address] [place] [address] [place], [address], 4 11:50:43 Medication Orders doxycyclin e hyclate 100 mg capsule 2024 025 [facility], [address] [place] [address], [id number], 5 17:24:09 gabapentin 600 mg tablet 2023 024 [facility], [address] [place] [address], [id number], 4 14:21:53 Combivent Respimat 20 mcg-100 mcg/actuat ion solution for inhalation 2023 024 junie Spyder Lynk [facility], [address] [place] [address], [id number], 4 16:26:32 Symbicort 160 mcg-4.5 mcg/actuat ion HFA aerosol inhaler 2023 024 [facility], [address] [place] [address], [id number], 4 13:46:31 Patient TargetsNo targets recorded. Patient InstructionsNo instructions recorded. Reason for Referral None Reported. Results Created Date Observation Date Name Description Value Unit Range Abnormal Flag Note LastModifiedBy Organization Detail LastModifiedTime 10/19/1910/19/2023 CBC W/ AUTO DIFF WBC 8.22 K/uL 4.5-11 .5 Not Available [facility] ([facility]) [address] [place] [address] [place], [address], 10/19/2023 08:46:17 10/19/19 24 10/19/2023 CBC W/ AUTO DIFF RBC 3.05 M/uL 4.0-5. 4 low Not Available [facility] ([facility]) [address] [place] [address] [place], [address], 10/19/2023 08:46:17 10/19/19 24 10/19/2023 CBC W/ AUTO DIFF HGB 9.8 g/dL 12.0-1 5.0 low Not Available [facility] ([facility]) [address] [place] [address] [place], [address], 10/19/2023 08:46:17 10/19/19 24 10/19/2023 CBC W/ AUTO DIFF HCT 30.7 % 35-49 low Not Available [facility] ([facility]) [address] [place] [address] [place], [address], 10/19/2023 08:46:17 10/19/19 24 10/19/2023 CBC W/ AUTO DIFF MCV 100.7 fL 80.0-1 00.0 high Not Available [facility] ([facility]) [address] [place] [address] [place], [address], 10/19/2023 08:46:17 10/19/19 24 10/19/2023 CBC W/ AUTO DIFF MCH 32.1 pg 26.0-3 2.0 high Not Available [facility] ([facility]) [address] [place] [address] [place], [address], 10/19/2023 08:46:17 10/19/19 24 10/19/2023 CBC W/ AUTO DIFF MCHC 31.9 g/dL 32.0-3 6.0 low Not Available [facility] ([facility]) [address] [place] [address] [place], [address], 10/19/2023 08:46:17 10/19/19 24 10/19/2023 CBC W/ AUTO DIFF RDW 15.9 % 11.5-1 4.5 high Not Available [facility] ([facility]) [address] [place] [address] [place], [address], 10/19/2023 08:46:17 10/19/19 24 10/19/2023 CBC W/ AUTO DIFF platelet count 250 K/uL 142-42 4 Not Available [facility] ([facility]) [address] [place] [address] [place], [address], 10/19/2023 08:46:17 10/19/19 24 10/19/2023 CBC W/ AUTO DIFF MPV 9.2 fL 6.8-10 .2 Not Available [facility] ([facility]) [address] [place] [address] [place], [address], 10/19/2023 08:46:17 10/19/19 24 10/19/2023 CBC W/ AUTO DIFF neutrophil % 79.4 % 50-70 high Not Available [facility] ([facility]) [address] [place] [address] [place], [address], 10/19/2023 08:46:17 10/19/19 24 10/19/2023 CBC W/ AUTO DIFF lymphocyte % 6.7 % 18.0-4 2.0 low Not Available [facility] ([facility]) [address] [place] [address] [place], [address], 10/19/2023 08:46:17 10/19/19 24 10/19/2023 CBC W/ AUTO DIFF monocyte % 8.0 % 2.0-11 .0 Not Available [facility] ([facility]) [address] [place] [address] [place], [address], 10/19/2023 08:46:17 10/19/19 24 10/19/2023 CBC W/ AUTO DIFF eosinophil % 3.2 % 1.0-3. 0 high Not Available [facility] ([facility]) [address] [place] [address] [place], [address], 10/19/2023 08:46:17 10/19/19 24 10/19/2023 CBC W/ AUTO DIFF basophil % 0.5 % 0.0-2. 0 Not Available [facility] ([facility]) [address] [place] [address] [place], [address], 10/19/2023 08:46:17 10/19/19 24 10/19/2023 CBC W/ AUTO DIFF immature granulocytes % 2.2 % 0.0-0. 8 high Not Available [facility] ([facility]) [address] [place] [address] [place], [address], 10/19/2023 08:46:17 10/19/19 24 10/19/2023 CBC W/ AUTO DIFF nucleated red blood cells % 0.6 % Not Available [facility] ([facility]) [address] [facility] [place], [address], 10/19/2023 08:46:17 10/19/19 24 10/19/2023 CBC W/ AUTO DIFF neutrophil # 6.53 K/uL Not Available [facility] ([facility]) [address] [place] [address] [place], [address], 10/19/2023 08:46:17 10/19/19 24 10/19/2023 CBC W/ AUTO DIFF lymphocyte # 0.55 K/uL Not Available [facility] (Pre[facility]Op [facility]) [address] [facility] [place], [address], 10/19/2023 08:46:17 10/19/19 24 10/19/2023 CBC W/ AUTO DIFF monocyte # 0.66 K/uL Not Available [facility] ([facility]) [address] [place] [address] [place], [address], 10/19/2023 08:46:17 10/19/19 24 10/19/2023 CBC W/ AUTO DIFF eosinophil # 0.26 K/uL Not Available [facility] ([facility]Op [facility]) [address] [place] [address] [place], [address], 10/19/2023 08:46:17 10/19/19 24 10/19/2023 CBC W/ AUTO DIFF basophil # 0.04 K/uL Not Available [facility] ([facility]) [address] [place] [address] [place], [address], 10/19/2023 08:46:17 10/19/19 24 10/19/2023 CBC W/ AUTO DIFF immature gramulocytes # 0.18 K/uL Not Available [facility] ([facility]) [address] [place] [address] [place], [address], 10/19/2023 08:46:17 10/19/19 24 10/19/2023 CBC W/ AUTO DIFF nucleated red blood cells # 0.05 k/uL Not Available [facility] ([facility]) [address] [place] [address] [place], [address], 10/19/2023 08:46:17 10/19/19 24 10/19/2023 CBC W/ AUTO DIFF manual differential NO Not Available [facility] ([facility]) [address] [place] [address] [place], [address], 10/19/2023 08:46:17 10/19/19 24 10/19/2023 CBC W/ AUTO DIFF note Unles s other godinez noted testi ng perfo rmed at: [facility] [address] [place] [address] Juan Antonio rivera MD Not Available [facility] ([facility]) [address] [place] [address] [place], [address], 10/19/2023 08:46:17 10/19/19 24 10/19/2023 COMP METAB OLIC PANEL sodium 142 mmol/ L 137-14 7 Not Available [facility] ([facility]) [address] [place] [address] [place], [address], 10/19/2023 08:47:22 10/19/19 24 10/19/2023 COMP METAB OLIC PANEL potassium 4.1 mmol/ L 3.5-5. 1 Not Available [facility] ([facility]) [address] [place] [address] [place], [address], 10/19/2023 08:47:22 10/19/19 24 10/19/2023 COMP METAB OLIC PANEL chloride 105 mmol/ L 98-110 Not Available [facility] ([facility]) [address] [place] [address] [place], [address], 10/19/2023 08:47:22 10/19/19 24 10/19/2023 COMP METAB OLIC PANEL carbon dioxide 31 mmol/ L 21-30 high Not Available [facility] ([facility]) [address] [place] [address] [place], [address], 10/19/2023 08:47:22 10/19/19 24 10/19/2023 COMP METAB OLIC PANEL anion gap 6 mmol/ L 6-14 Not Available [facility] ([facility]) [address] [place] [address] [place], [address], 10/19/2023 08:47:22 10/19/19 24 10/19/2023 COMP METAB OLIC PANEL glucose 258 mg/dL 70-115 high Not Available [facility] ([facility]) [address] [place] [address] [place], [address], 10/19/2023 08:47:22 10/19/19 24 10/19/2023 COMP METAB OLIC PANEL BUN 16 mg/dL 7-17 Not Available [facility] ([facility]) [address] [place] [address] [place], [address], 10/19/2023 08:47:22 10/19/19 24 10/19/2023 COMP METAB OLIC PANEL creatinine 0.8 mg/dL 0.5-1. 5 Not Available [facility] ([facility]) [address] [place] [address] [place], [address], 10/19/2023 08:47:22 10/19/19 24 10/19/2023 COMP METAB OLIC PANEL BUN/creatini ne ratio 20 ratio 10-20 Not Available [facility] ([facility]) [address] [place] [address] [place], [address], 10/19/2023 08:47:22 10/19/19 24 10/19/2023 COMP METAB OLIC PANEL glom filtration rate 77 mL/mi n >60- Not Available [facility] ([facility]) [address] [place] [address] [place], [address], 10/19/2023 08:47:22 10/19/19 24 10/19/2023 COMP METAB OLIC PANEL osmolality (calculated) 305 mosmo l/kg 275-30 1 high OSMOL ALITY IS A CALCU LATIO N UTILI ZING THE SERUM /PLAS MA SODIU M, GLUCO SE AND UREA NITRO GEN (BUN) LEVEL S. FOR THE MOST ACCUR ATE RESUL T A MEASU RED SERUM OSMOL ALITY IS SUGGE STED. Not Available [facility] ([facility]) [address] [place] [address] [place], [address], 10/19/2023 08:47:22 10/19/19 24 10/19/2023 COMP METAB OLIC PANEL total protein 6.5 g/dL 6.2-8. 2 Not Available [facility] ([facility]) [address] [place] [address] [place], [address], 10/19/2023 08:47:22 10/19/19 24 10/19/2023 COMP METAB OLIC PANEL albumin 3.9 g/dL 3.5-5. 0 Not Available [facility] ([facility]) [address] [place] [address] [place], [address], 10/19/2023 08:47:22 10/19/19 24 10/19/2023 COMP METAB OLIC PANEL calcium 9.7 mg/dL 8.5-10 .8 Not Available [facility] ([facility]) [address] [place] [address] [place], [address], 10/19/2023 08:47:22 10/19/19 24 10/19/2023 COMP METAB OLIC PANEL bilirubin total 0.4 mg/dL 0.2-1. 3 Not Available [facility] ([facility]) [address] [place] [address] [place], [address], 10/19/2023 08:47:22 10/19/19 24 10/19/2023 COMP METAB OLIC PANEL AST (SGOT) 20 IU/L 14-36 Not Available [facility] ([facility]) [address] [place] [address] [place], [address], 10/19/2023 08:47:22 10/19/19 24 10/19/2023 COMP METAB OLIC PANEL ALT (SGPT) 16 IU/L 0-35 Pleas e note new refer ence inter lynn for ALT. 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 Not Available [facility] ([facility]) [address] [place] [address] [place], [address], 10/19/2023 08:47:22 10/19/19 24 10/19/2023 COMP METAB OLIC PANEL alk phosphatase 98 IU/L 38-126 Not Available [facility] ([facility]Op [facility]) [address] [place] [address] [place], [address], 10/19/2023 08:47:22 10/19/19 24 10/19/2023 COMP METAB OLIC PANEL note Benjie s other godinez noted testi ng perfo rmed at: [facility] [address] [place] [address] Juan Antonio rivera MD Not Available [facility] ([facility]) [address] [place] [address] [place], [address], 10/19/2023 08:47:22 10/19/19 24 10/19/2023 MAGNE SIUM magnesium 1.5 mg/dL 1.6-2. 4 low Not Available [facility] ([facility]) [address] [place] [address] [place], [address], 10/19/2023 08:47:23 10/19/19 24 10/19/2023 MAGNE SIUM note Unles s other godinez noted testi ng perfo rmed at: [facility] [address] [place] [place] [address] Juan Antonio rivera MD Not Available [facility] ([facility]) [address] [place] [address] [place], [address], 10/19/2023 08:47:23 11/09/19 24 11/09/2023 CBC W/ AUTO DIFF WBC 7.86 K/uL 4.5-11 .5 Not Available [facility] ([facility]) [address] [place] [address] [place], [address], 11/09/2023 08:55:13 11/09/19 24 11/09/2023 CBC W/ AUTO DIFF RBC 3.68 M/uL 4.0-5. 4 low Not Available [facility] ([facility]) [address] [place] [address] [place], [address], 11/09/2023 08:55:13 11/09/1911/09/2023 CBC W/ AUTO DIFF HGB 11.2 g/dL 12.0-1 5.0 low Not Available [facility] ([facility]) [address] [place] [address] [place], [address], 11/09/2023 08:55:13 11/09/19 24 11/09/2023 CBC W/ AUTO DIFF HCT 36.1 % 35-49 Not Available [facility] ([facility]) [address] [place] [address] [place], [address], 11/09/2023 08:55:13 11/09/19 24 11/09/2023 CBC W/ AUTO DIFF MCV 98.1 fL 80.0-1 00.0 Not Available [facility] ([facility]) [address] [place] [address] [place], [address], 11/09/2023 08:55:13 11/09/1911/09/2023 CBC W/ AUTO DIFF MCH 30.4 pg 26.0-3 2.0 Not Available [facility] ([facility]) [address] [place] [address] [place], [address], 11/09/2023 08:55:13 11/09/19 24 11/09/2023 CBC W/ AUTO DIFF MCHC 31.0 g/dL 32.0-3 6.0 low Not Available [facility] ([facility]) [address] [place] [address] [place], [address], 11/09/2023 08:55:13 11/09/19 24 11/09/2023 CBC W/ AUTO DIFF RDW 16.8 % 11.5-1 4.5 high Not Available [facility] ([facility]) [address] [place] [address] [place], [address], 11/09/2023 08:55:13 11/09/19 24 11/09/2023 CBC W/ AUTO DIFF platelet count 307 K/uL 142-42 4 Not Available [facility] ([facility]) [address] [place] [address] [place], [address], 11/09/2023 08:55:13 11/09/19 24 11/09/2023 CBC W/ AUTO DIFF MPV 9.5 fL 6.8-10 .2 Not Available [facility] ([facility]) [address] [place] [address] [place], [address], 11/09/2023 08:55:13 11/09/19 24 11/09/2023 CBC W/ AUTO DIFF neutrophil % 69.9 % 50-70 Not Available [facility] ([facility]) [address] [place] [address] [place], [address], 11/09/2023 08:55:13 11/09/19 24 11/09/2023 CBC W/ AUTO DIFF lymphocyte % 13.6 % 18.0-4 2.0 low Not Available [facility] ([facility]) [address] [place] [address] [place], [address], 11/09/2023 08:55:13 11/09/19 24 11/09/2023 CBC W/ AUTO DIFF monocyte % 10.1 % 2.0-11 .0 Not Available [facility] ([facility]) [address] [place] [address] [place], [address], 11/09/2023 08:55:13 11/09/19 24 11/09/2023 CBC W/ AUTO DIFF eosinophil % 2.4 % 1.0-3. 0 Not Available [facility] ([facility]) [address] [place] [address] [place], [address], 11/09/2023 08:55:13 11/09/1911/09/2023 CBC W/ AUTO DIFF basophil % 1.3 % 0.0-2. 0 Not Available [facility] ([facility]) [address] [place] [address] [place], [address], 11/09/2023 08:55:13 11/09/1911/09/2023 CBC W/ AUTO DIFF immature granulocytes % 2.7 % 0.0-0. 8 high Not Available [facility] ([facility]) [address] [place] [address] [place], [address], 11/09/2023 08:55:13 11/09/1911/09/2023 CBC W/ AUTO DIFF nucleated red blood cells % 0.3 % Not Available [facility] ([facility]Op [facility]) [address] [place] [address] [place], [address], 11/09/2023 08:55:13 11/09/1911/09/2023 CBC W/ AUTO DIFF neutrophil # 5.50 K/uL Not Available [facility] ([facility]Op [facility]) [address] [place] [address] [place], [address], 11/09/2023 08:55:13 11/09/1911/09/2023 CBC W/ AUTO DIFF lymphocyte # 1.07 K/uL Not Available [facility] ([facility]) [address] [place] [address] [place], [address], 11/09/2023 08:55:13 11/09/1908 1111/09/2023 CBC W/ AUTO DIFF monocyte # 0.79 K/uL Not Available [facility] ([facility]) [address] [place] [address] [place], [address], 11/09/2023 08:55:13 11/09/19 24 11/09/2023 CBC W/ AUTO DIFF eosinophil # 0.19 K/uL Not Available [facility] ([facility]) [address] [place] [address] [place], [address], 11/09/2023 08:55:13 11/09/19 24 11/09/2023 CBC W/ AUTO DIFF basophil # 0.10 K/uL Not Available [facility] ([facility]) [address] [place] [address] [place], [address], 11/09/2023 08:55:13 11/09/19 24 11/09/2023 CBC W/ AUTO DIFF immature gramulocytes # 0.21 K/uL Not Available [facility] ([facility]) [address] [place] [address] [place], [address], 11/09/2023 08:55:13 11/09/19 24 11/09/2023 CBC W/ AUTO DIFF nucleated red blood cells # 0.02 k/uL Not Available [facility] ([facility]) [address] [place] [address] [place], [address], 11/09/2023 08:55:13 11/09/19 24 11/09/2023 CBC W/ AUTO DIFF manual differential NO Not Available [facility] ([facility]) [address] [place] [address] [place], [address], 11/09/2023 08:55:13 11/09/19 24 11/09/2023 CBC W/ AUTO DIFF note Unles s other godinez noted testi ng perfo rmed at: [facility] [address] [place] [place] [address] Juan Antonio rivera MD Not Available [facility] ([facility]) [address] [place] [address] [place], [address], 11/09/2023 08:55:13 11/09/19 24 11/09/2023 COMP METAB OLIC PANEL sodium 142 mmol/ L 137-14 7 Not Available [facility] ([facility]) [address] [place] [address] [place], [address], 11/09/2023 09:19:53 11/09/19 24 11/09/2023 COMP METAB OLIC PANEL potassium 3.9 mmol/ L 3.5-5. 1 Not Available [facility] ([facility]) [address] [place] [address] [place], [address], 11/09/2023 09:19:53 11/09/1911/09/2023 COMP METAB OLIC PANEL chloride 101 mmol/ L 98-110 Not Available [facility] ([facility]) [address] [place] [address] [place], [address], 11/09/2023 09:19:53 11/09/1911/09/2023 COMP METAB OLIC PANEL carbon dioxide 28 mmol/ L 21-30 Not Available [facility] ([facility]) [address] [place] [address] [place], [address], 11/09/2023 09:19:53 11/09/1911/09/2023 COMP METAB OLIC PANEL anion gap 13 mmol/ L 6-14 Not Available [facility] ([facility]) [address] [place] [address] [place], [address], 11/09/2023 09:19:53 11/09/1911/09/2023 COMP METAB OLIC PANEL glucose 187 mg/dL 70-115 high Not Available [facility] ([facility]) [address] [place] [address] [place], [address], 11/09/2023 09:19:53 11/09/19 24 11/09/2023 COMP METAB OLIC PANEL BUN 16 mg/dL 7-17 Not Available [facility] ([facility]) [address] [place] [address] [place], [address], 11/09/2023 09:19:53 11/09/19 24 11/09/2023 COMP METAB OLIC PANEL creatinine 0.8 mg/dL 0.5-1. 5 Not Available [facility] ([facility]) [address] [place] [address] [place], [address], 11/09/2023 09:19:53 11/09/1911/09/2023 COMP METAB OLIC PANEL BUN/creatini ne ratio 20 ratio 10-20 Not Available [facility] ([facility]) [address] [place] [address] [place], [address], 11/09/2023 09:19:53 11/09/1911/09/2023 COMP METAB OLIC PANEL glom filtration rate 83 mL/mi n >60- Not Available [facility] ([facility]) [address] [place] [address] [place], [address], 11/09/2023 09:19:53 11/09/1911/09/2023 COMP METAB OLIC PANEL osmolality (calculated) 301 mosmo l/kg 275-30 1 OSMOL ALITY IS A CALCU LATIO N UTILI ZING THE SERUM /PLAS MA SODIU M, GLUCO SE AND UREA NITRO GEN (BUN) LEVEL S. FOR THE MOST ACCUR ATE RESUL T A MEASU RED SERUM OSMOL ALITY IS SUGGE STED. Not Available [facility] ([facility]) [address] [place] [address] [place], [address], 11/09/2023 09:19:53 11/09/1911/09/2023 COMP METAB OLIC PANEL total protein 7.3 g/dL 6.2-8. 2 Not Available [facility] ([facility]) [address] [place] [address] [place], [address], 11/09/2023 09:19:53 11/09/19 24 11/09/2023 COMP METAB OLIC PANEL albumin 4.1 g/dL 3.5-5. 0 Not Available [facility] ([facility]) [address] [place] [address] [place], [address], 11/09/2023 09:19:53 11/09/1911/09/2023 COMP METAB OLIC PANEL calcium 9.5 mg/dL 8.5-10 .8 Not Available [facility] ([facility]) [address] [place] [address] [place], [address], 11/09/2023 09:19:53 11/09/1911/09/2023 COMP METAB OLIC PANEL bilirubin total 0.5 mg/dL 0.2-1. 3 Not Available [facility] ([facility]) [address] [place] [address] [place], [address], 11/09/2023 09:19:53 11/09/1911/09/2023 COMP METAB OLIC PANEL AST (SGOT) 26 IU/L 14-36 Not Available [facility] ([facility]) [address] [place] [address] [place], [address], 11/09/2023 09:19:53 11/09/1911/09/2023 COMP METAB OLIC PANEL ALT (SGPT) 16 IU/L 0-35 Pleas e note new refer ence inter lynn for ALT. 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 Not Available [facility] ([facility]) [address] [place] [address] [place], [address], 11/09/2023 09:19:53 11/09/1911/09/2023 COMP METAB OLIC PANEL alk phosphatase 113 IU/L 38-126 Not Available [facility] ([facility]) [address] [place] [address] [place], [address], 11/09/2023 09:19:53 11/09/19 24 11/09/2023 COMP METAB OLIC PANEL note Benjie s other godinez noted testi ng perfo rmed at: [facility] [address] [place] [address] Juan Antonio rivera MD Not Available [facility] ([facility]) [address] [place] [address] [place], [address], 11/09/2023 09:19:53 11/09/19 24 11/09/2023 MAGNE SIUM magnesium 1.4 mg/dL 1.6-2. 4 low Not Available [facility] ([facility]) [address] [place] [address] [place], [address], 11/09/2023 09:19:54 11/09/19 24 11/09/2023 MAGNE SIUM note Benjie rivera other godinez noted testi ng perfo rmed at: [facility] [address] [place] [address] Juan Antonio rivera MD Not Available [facility] ([facility]) [address] [place] [address] [place], [address], 11/09/2023 09:19:54 11/09/19 24 11/09/2023 IRON STUDY W FE/TI BC/UI BC/%S AT iron 93 ug/dL 37-170 Not Available [facility] ([facility]Op [facility]) [address] [place] [address] [place], [address], 11/09/2023 10:42:03 11/09/19 24 11/09/2023 IRON STUDY W FE/TI BC/UI BC/%S AT total iron bind cap. 258 ug/dL 265-49 7 low Not Available [facility] ([facility]) [address] [place] [address] [place], [address], 11/09/2023 10:42:03 11/09/19 24 11/09/2023 IRON STUDY W FE/TI BC/UI BC/%S AT unsaturated iron binding cap 165 ug/dL 150-37 5 Not Available [facility] ([facility]) [address] [place] [address] [place], [address], 11/09/2023 10:42:03 11/09/19 24 11/09/2023 IRON STUDY W FE/TI BC/UI BC/%S AT % saturation 36 % 15-55 Not Available [facility] ([facility]) [address] [place] [address] [place], [address], 11/09/2023 10:42:03 11/09/19 24 11/09/2023 IRON STUDY W FE/TI BC/UI BC/%S AT note Unles s other godinez noted testi ng perfo rmed at: [facility] [address] [place] [address] Juan Antonio rivera MD Not Available [facility] ([facility]) [address] [place] [address] [place], [address], 11/09/2023 10:42:03 11/09/19 24 11/09/2023 JAMES TIN ferritin 180 NG/mL 3-105 high Not Available [facility] ([facility]) [address] [place] [address] [place], [address], 11/09/2023 11:17:42 11/09/19 24 11/09/2023 JAMES TIN note Unles s other godinez noted testi ng perfo rmed at: [facility] [address] [place] [address] Juan Antonio rivera MD Not Available [facility] ([facility]) [address] [place] [address] [place], [address], 11/09/2023 11:17:42 11/09/19 24 11/09/2023 VITAM IN B12 vitamin B12 925 pg/mL 239-93 1 Not Available [facility] ([facility]) [address] [place] [address] [place], [address], 11/09/2023 11:45:19 11/09/19 24 11/09/2023 VITAM IN B12 folate (folic acid), serum 11.5 NG/mL 2.76- Not Available [facility] (Pre[facility]Op [facility]) [address] [place] [address] [place], [address], 11/09/2023 11:45:19 11/09/19 24 11/09/2023 VITAM IN B12 note Unles s other godinez noted testi ng perfo rmed at: [facility] [address] [place] [address] Juan Anotnio rivera MD Not Available [facility] ([facility]) [address] [place] [address] [place], [address], 11/09/2023 11:45:19 11/09/19 24 11/09/2023 METHY LMALO ANDREW ACID QUANT note Unlmarquez rivera other godinez noted testi ng perfo rmed at: [facility] [address] [place] [address] Juan Antonio rivera MD Not Available [facility] ([facility]) [address] [place] [address] [place], [address], 11/13/2023 14:17:09 11/09/19 24 11/13/2023 METHY LMALO ANDREW ACID QUANT methylmaloni c acid, serum 198 nmol/ L 0-378 Test( s) 80210 7-Met hylma lonic Acid, Serum was devel oped and its perfo rmanc e kayla cteri stics deter mined by [facility]. It has not been clear ed or appro dequan by the Food and Drug Admin istra tion. Perfo rmed at: - [facility] [place] [address] , [place] [address] Lab Direc tor: Blanca singh MD, Phone : [phone] Not Available [facility] ([facility]) [address] [place] [address] [place], [address], 11/13/2023 14:17:09 02/08/20 24 02/08/2024 CBC W/ AUTO DIFF WBC 7.20 K/uL 4.5-11 .5 Not Available [facility] ([facility]) [address] [place] [address] [place], [address], 02/08/2024 11:13:30 02/08/20 24 02/08/2024 CBC W/ AUTO DIFF RBC 3.41 M/uL 4.0-5. 4 low Not Available [facility] ([facility]) [address] [place] [address] [place], [address], 02/08/2024 11:13:30 02/08/20 24 02/08/2024 CBC W/ AUTO DIFF HGB 10.8 g/dL 12.0-1 5.0 low Not Available [facility] ([facility]) [address] [place] [address] [place], [address], 02/08/2024 11:13:30 02/08/20 24 02/08/2024 CBC W/ AUTO DIFF HCT 34.4 % 35-49 low Not Available [facility] ([facility]) [address] [place] [address] [place], [address], 02/08/2024 11:13:30 02/08/20 24 02/08/2024 CBC W/ AUTO DIFF MCV 100.9 fL 80.0-1 00.0 high Not Available [facility] ([facility]) [address] [place] [address] [place], [address], 02/08/2024 11:13:30 02/08/20 24 02/08/2024 CBC W/ AUTO DIFF MCH 31.7 pg 26.0-3 2.0 Not Available [facility] ([facility]) [address] [place] [address] [place], [address], 02/08/2024 11:13:30 02/08/20 24 02/08/2024 CBC W/ AUTO DIFF MCHC 31.4 g/dL 32.0-3 6.0 low Not Available [facility] ([facility]) [address] [place] [address] [place], [address], 02/08/2024 11:13:30 02/08/20 24 02/08/2024 CBC W/ AUTO DIFF RDW 14.4 % 11.5-1 4.5 Not Available [facility] ([facility]) [address] [place] [address] [place], [address], 02/08/2024 11:13:30 02/08/20 24 02/08/2024 CBC W/ AUTO DIFF platelet count 190 K/uL 142-42 4 Not Available [facility] ([facility]) [address] [place] [address] [place], [address], 02/08/2024 11:13:30 02/08/20 24 02/08/2024 CBC W/ AUTO DIFF MPV 9.7 fL 6.8-10 .2 Not Available [facility] ([facility]) [address] [place] [address] [place], [address], 02/08/2024 11:13:30 02/08/20 24 02/08/2024 CBC W/ AUTO DIFF neutrophil % 81.4 % 50-70 high Not Available [facility] ([facility]) [address] [place] [address] [place], [address], 02/08/2024 11:13:30 02/08/20 24 02/08/2024 CBC W/ AUTO DIFF lymphocyte % 9.9 % 18.0-4 2.0 low Not Available [facility] ([facility]) [address] [place] [address] [place], [address], 02/08/2024 11:13:30 02/08/20 24 02/08/2024 CBC W/ AUTO DIFF monocyte % 3.6 % 2.0-11 .0 Not Available [facility] ([facility]) [address] [place] [address] [place], [address], 02/08/2024 11:13:30 02/08/20 24 02/08/2024 CBC W/ AUTO DIFF eosinophil % 4.0 % 1.0-3. 0 high Not Available [facility] ([facility]) [address] [place] [address] [place], [address], 02/08/2024 11:13:30 02/08/20 24 02/08/2024 CBC W/ AUTO DIFF basophil % 0.7 % 0.0-2. 0 Not Available [facility] ([facility]) [address] [place] [address] [place], [address], 02/08/2024 11:13:30 02/08/20 24 02/08/2024 CBC W/ AUTO DIFF immature granulocytes % 0.4 % 0.0-0. 8 Not Available [facility] (Pre-Op Clinic) [address] [place] [address] [place], [address], 02/08/2024 11:13:30 02/08/20 24 02/08/2024 CBC W/ AUTO DIFF nucleated red blood cells % 0.0 % Not Available [facility] ([facility]) [address] [place] [address] [place], [address], 02/08/2024 11:13:30 02/08/20 24 02/08/2024 CBC W/ AUTO DIFF neutrophil # 5.86 K/uL Not Available [facility] (Pre[facility]Op [facility]) [address] [place] [address] [place], [address], 02/08/2024 11:13:30 02/08/20 24 02/08/2024 CBC W/ AUTO DIFF lymphocyte # 0.71 K/uL Not Available [facility] (Pre[facility]Op [facility]) [address] [place] [address] [place], [address], 02/08/2024 11:13:30 02/08/20 24 02/08/2024 CBC W/ AUTO DIFF monocyte # 0.26 K/uL Not Available [facility] ([facility]Op [facility]) [address] [place] [address] [place], [address], 02/08/2024 11:13:30 02/08/20 24 02/08/2024 CBC W/ AUTO DIFF eosinophil # 0.29 K/uL Not Available [facility] ([facility]) [address] [place] [address] [place], [address], 02/08/2024 11:13:30 02/08/20 24 02/08/2024 CBC W/ AUTO DIFF basophil # 0.05 K/uL Not Available [facility] ([facility]) [address] [place] [address] [place], [address], 02/08/2024 11:13:30 02/08/20 24 02/08/2024 CBC W/ AUTO DIFF immature gramulocytes # 0.03 K/uL Not Available [facility] ([facility]) [address] [place] [address] [place], [address], 02/08/2024 11:13:30 02/08/20 24 02/08/2024 CBC W/ AUTO DIFF nucleated red blood cells # 0.00 k/uL Not Available [facility] ([facility]) [address] [place] [address] [place], [address], 02/08/2024 11:13:30 02/08/20 24 02/08/2024 CBC W/ AUTO DIFF manual differential NO Not Available [facility] ([facility]Op [facility]) [address] [place] [address] [place], [address], 02/08/2024 11:13:30 02/08/20 24 02/08/2024 CBC W/ AUTO DIFF note Unles s other godinez noted testi ng perfo rmed at: [facility] [address] [place] [address] Juan Antonio rivera MD Not Available [facility] ([facility]) [address] [place] [address] [place], [address], 02/08/2024 11:13:30 09/23/20 24 02/08/2024 COMP METAB OLIC PANEL sodium 144 mmol/ L 137-14 7 Not Available [facility] ([facility]) [address] [facility], [address], 02/08/2024 11:52:56 02/08/20 24 02/08/2024 COMP METAB OLIC PANEL potassium 4.1 mmol/ L 3.5-5. 1 Not Available [facility] ([facility]) [address] [facility], [address], 02/08/2024 11:52:56 02/08/20 24 02/08/2024 COMP METAB OLIC PANEL chloride 106 mmol/ L 98-110 Not Available [facility] ([facility]) [address] [place] [address] [place], [address], 02/08/2024 11:52:56 02/08/20 24 02/08/2024 COMP METAB OLIC PANEL carbon dioxide 27 mmol/ L 21-30 Not Available [facility] ([facility]) [address] [facility], [address], 02/08/2024 11:52:56 02/08/20 24 02/08/2024 COMP METAB OLIC PANEL anion gap 11 mmol/ L 6-14 Not Available [facility] ([facility]) [address] [place] [address] [place], [address], 02/08/2024 11:52:56 02/08/20 24 02/08/2024 COMP METAB OLIC PANEL glucose 208 mg/dL 70-115 high Not Available [facility] ([facility]) [address] [place] [address] [place], [address], 02/08/2024 11:52:56 02/08/20 24 02/08/2024 COMP METAB OLIC PANEL BUN 21 mg/dL 7-17 high Not Available [facility] ([facility]) [address] [place] [address] [place], [address], 02/08/2024 11:52:56 02/08/20 24 02/08/2024 COMP METAB OLIC PANEL creatinine 1.0 mg/dL 0.5-1. 5 Not Available [facility] ([facility]) [address] [facility], [address], 02/08/2024 11:52:56 02/08/20 24 02/08/2024 COMP METAB OLIC PANEL BUN/creatini ne ratio 21 ratio 10-20 high Not Available [facility] ([facility]) [address] [place] [address] [place], [address], 02/08/2024 11:52:56 02/08/20 24 02/08/2024 COMP METAB OLIC PANEL glom filtration rate 63 mL/mi n >60- Not Available [facility] ([facility]Op [facility]) [address] [place] [address] [place], [address], 02/08/2024 11:52:56 02/08/20 24 02/08/2024 COMP METAB OLIC PANEL osmolality (calculated) 308 mosmo l/kg 275-30 1 high OSMOL ALITY IS A CALCU LATIO N UTILI ZING THE SERUM /PLAS MA SODIU M, GLUCO SE AND UREA NITRO GEN (BUN) LEVEL S. FOR THE MOST ACCUR ATE RESUL T A MEASU RED SERUM OSMOL ALITY IS SUGGE STED. Not Available [facility] ([facility]) [address] [facility], [address], 02/08/2024 11:52:56 02/08/20 24 02/08/2024 COMP METAB OLIC PANEL total protein 7.7 g/dL 6.2-8. 2 Not Available [facility] ([facility]) [address] [place] [address] [place], [address], 02/08/2024 11:52:56 02/08/20 24 02/08/2024 COMP METAB OLIC PANEL albumin 4.1 g/dL 3.5-5. 0 Not Available [facility] ([facility]Op [facility]) [address] [place] [address] [place], [address], 02/08/2024 11:52:56 02/08/20 24 02/08/2024 COMP METAB OLIC PANEL calcium 9.2 mg/dL 8.5-10 .8 Not Available [facility] ([facility]Op [facility]) [address] [place] [address] [place], [address], 02/08/2024 11:52:56 02/08/20 24 02/08/2024 COMP METAB OLIC PANEL bilirubin total 0.4 mg/dL 0.2-1. 3 Not Available [facility] ([facility]) [address] [place] [address] [place], [address], 02/08/2024 11:52:56 02/08/20 24 02/08/2024 COMP METAB OLIC PANEL AST (SGOT) 24 IU/L 14-36 Not Available [facility] ([facility]Op [facility]) [address] [place] [address] [place], [address], 02/08/2024 11:52:56 02/08/20 24 02/08/2024 COMP METAB OLIC PANEL ALT (SGPT) 19 IU/L 0-35 Pleas e note new refer ence inter lynn for ALT. 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 Not Available [facility] ([facility]Op [facility]) [address] [place] [address] [place], [address], 02/08/2024 11:52:56 02/08/20 24 02/08/2024 COMP METAB OLIC PANEL alk phosphatase 121 IU/L 38-126 Not Available [facility] ([facility]Op [facility]) [address] [place] [address] [place], [address], 02/08/2024 11:52:56 02/08/20 24 02/08/2024 COMP METAB OLIC PANEL note Unles s other godinez noted testi ng perfo rmed at: [facility] [address] [place] [address] Juan Antonio rivera MD Not Available [facility] ([facility]) [address] [place] [address] [place], [address], 02/08/2024 11:52:56 02/08/20 24 02/08/2024 VITAM IN D, 25-HY DROXY vitamin D, 25-hydroxy 39.1 NG/mL 30-100 Vitam in D defic iency has been defin ed by the [facility]ine [facility] ty pract ice guide line as a level of serum 25-OH vitam in D less than 20 ng/mL . The Endoc rine Socie ty went on to [facility] er defin e vitam in D insuf ficie ncy as a level betwe en 20 and 29 ng/mL . Level s of vitam in D betwe en 30 and 100 ng/mL are consi dered suffi ent. Level s above 100 ng/mL are consi dered poten tiall y toxic . Not Available [facility] ([facility]) [address] [place] [address] [place], [address], 02/08/2024 12:01:45 02/08/20 24 02/08/2024 VITAM IN D, 25-HY DROXY note Unles s other godinez noted testi ng perfo rmed at: [facility] [address] [place] [address] Juan Antonio rivera MD Not Available [facility] ([facility]) [address] [place] [address] [place], [address], 02/08/2024 12:01:45 02/08/20 24 02/08/2024 TSH thyroid stim hormone 3.21 uIU/m L 0.465- 4.68 Not Available [facility] ([facility]) [address] [place] [address] [place], [address], 02/08/2024 12:28:58 02/08/20 24 02/08/2024 TSH note Unles s other godinez noted testi ng perfo rmed at: [facility] [address] [place] [address] Juan Antonio rivera MD Not Available [facility] ([facility]) [address] [place] [address] [place], [address], 02/08/2024 12:28:58 02/08/20 24 02/08/2024 VITAM IN B12 vitamin B12 882 pg/mL 239-93 1 Not Available [facility] ([facility]) [address] [place] [address] [place], [address], 02/08/2024 12:33:32 02/08/20 24 02/08/2024 VITAM IN B12 note Benjie rivera other godinez noted testi ng perfo rmed at: [facility] [address] [place] [address] Juan Antonio rivera MD Not Available [facility] ([facility]) [address] [place] [address] [place], [address], 02/08/2024 12:33:32 02/08/20 24 02/08/2024 FOLAT E folate (folic acid), serum 8.2 NG/mL 2.76- Not Available [facility] ([facility]Op [facility]) [address] [place] [address] [place], [address], 02/08/2024 12:50:13 02/08/20 24 02/08/2024 FOLAT E note Benjie s other godinez noted testi ng perfo rmed at: [facility] [address] [place] [address] Juan Antonio rivera MD Not Available [facility] ([facility]) [address] [place] [address] [place], [address], 02/08/2024 12:50:13 02/08/20 24 02/08/2024 T4 FREE T4 free 1.35 NG/dL 0.78-2 .19 Not Available [facility] ([facility]) [address] [place] [address] [place], [address], 02/08/2024 12:52:26 02/08/20 24 02/08/2024 T4 FREE note Unles s other godinez noted testi ng perfo rmed at: [facility] [address] [place] [address] Juan Antonio rivera MD Not Available [facility] ([facility]) [address] [place] [address] [place], [address], 02/08/2024 12:52:26 02/08/20 24 02/08/2024 METHY LMALO ANDREW ACID QUANT note Unles s other godinez noted testi ng perfo rmed at: [facility] [address] [place] [address] Juan Antonio rivera MD Not Available [facility] ([facility]) [address] [place] [address] [place], [address], 02/11/2024 18:11:06 02/08/20 24 02/11/2024 METHY LMALO ANDREW ACID QUANT methylmaloni c acid, serum 191 nmol/ L 0-378 Test( s) 61929 7-Met hylma lonic Acid, Serum was devel oped and its perfo rmanc e kayla cteri stics deter mined by [facility]. It has not been clear ed or appro dequan by the Food and Drug Admin istra tion. Perfo rmed at: - [facility] [place] [address] [facility] , [place] [address] Lab Direc tor: Blanca singh MD, Phone : [phone] Not Available [facility] ([facility]) [address] [place] [address] [place], [address], 02/11/2024 18:11:06 06/24/19 25 06/24/2024 CREAT ININE creatinine 0.9 mg/dL 0.5-1. 5 Not Available [facility] ([facility]) [address] [place] [address] [place], [address], 06/24/2024 12:55:41 06/24/19 25 06/24/2024 CREAT ININE [...] rangel ing kiney funct ion. Not Available [facility] ([facility]) [address] [place] [address] [place], [address], 06/24/2024 12:55:41 06/24/19 25 06/24/2024 CREAT ININE note Unles s other godinez noted testi ng perfo rmed at: [facility] [address] [place] [address] Juan Antonio rivera MD Not Available [facility] ([facility]) [address] [place] [address] [place], [address], 06/24/2024 12:55:41 08/18/19 25 08/17/2024 CREAT ININE creatinine 0.9 mg/dL 0.5-1. 5 Not Available [facility] ([facility]) [address] [place] [address] [place], [address], 08/17/2024 10:41:12 08/18/19 25 08/17/2024 CREAT ININE [...] rangel ing kiney funct ion. Not Available [facility] ([facility]) [address] [place] [address] [place], [address], 08/17/2024 10:41:12 08/18/19 25 08/17/2024 CREAT ININE note Unles s other godinez noted testi ng perfo rmed at: [facility] [address] [place] [address] Juan Antonio rivera MD Not Available [facility] ([facility]) [address] [place] [address] [place], [address], 08/17/2024 10:41:12 11/17/19 24 11/17/2023 elect tim boatenggr am No observ ation record ed. [facility] [address] [place] [address] [address], [place], [address], 11/17/2023 20:20:23 11/17/19 24 elect rockelechi boatenggr am No observ ation record ed. [email or web address] Not Available 2023 20:20:24 02/18/20 24 02/16/2024 PET-C T, skull base to mid-t high scan [facility] [address] [place] [address] (Phone ) JUVENAL Gallagher REPORT Name: TERESA SHARP : 1960 Accoun t #: [id number] Age: 63 Years Patien t Type: Outpat ient Sex: F Access ion#: [id number] Exam Descri ption: PET/CT SKULL BASE [...] TERESA SHARP : 1960 Accoun t #: [id number] Age: 63 Years Patien t Type: Outpat ient Sex: F Access ion#: [id number] Exam Descri ption: PET/CT SKULL BASE [...] ent appear ing opacit ies to the record pressman ior right upper lobe and superi or [...] OF 3 : 1960 Accoun t #: [id number] Age: 63 Years Patien t Type: Outpat ient Sex: F Access ion#: [id number] Exam Descri ption: PET/CT SKULL BASE [...] ent appear ing opacit ies to the record pressman ior right upper lobe and superi or [...] Admitt ing Provid er: GAYLE GIMENEZ [email or web address] [facility] (Central Scheduling) [address] [facility] [place], [address], 02/23/2024 15:09:34 06/24/19 25 06/24/2024 CT, abdom en + pelvi s, w/o contr ast [facility] [address] [place] [address] (Phone ) JUVENAL Gallagher REPORT Name: TERESA SHARP : 1960 Accoun t #: [id number] Age: 63 Years Patien t Type: Outpat ient Sex: F Access ion#: [id number] Exam Descri ption: CT CHEST/ ABD/PE L NO PO-IV ONLY Exam Reason : malign ant neopla sm unspc brochu s or lung Order Date/T sammi: 2024 02:49: 15 PM Dictat ed By: Angelina Ramachandran se, MD Orderi ng Physic juana: PERNELL ARAUJO Attend ing Physic juana: PERNELL ARAUJO CT CHEST ABDOME N PELVIS WITH IV CONTRA ST, 06/24/19 1:49 PM [facility] INDICA TION: malign ant neopla sm unspc [...] TERESA SHARP : 1960 Accoun t #: [id number] Age: 63 Years Patien t Type: Outpat ient Sex: F Access ion#: [id number] Exam Descri ption: CT CHEST/ ABD/PE [...] OF 3 : 1960 Accoun t #: [id number] Age: 63 Years Patien t Type: Outpat ient Sex: F Access ion#: [id number] Exam Descri ption: CT CHEST/ ABD/PE [...] GAYLE Berryitt ing Provid er: GAYLE GIMENEZ [facility] (Central Scheduling) [address] [place] [address] [place], [address], 06/27/2024 13:59:26 08/19/19 25 08/17/2024 CT, chest , w/ contr ast [facility] [address] [place] [address] [phone] (Phone ) JUVENAL Gallagher REPORT Name: TERESA SHARP : 1960 Accoun t #: [id number] Age: 63 Years Patien t Type: Outpat ient Sex: F Access ion#: [id number] Exam Descri ption: CT CHEST W [...] scarri ng in the right upper lobe record pressman ior segmen t. Minima l depend ent atelec tasis versus scarri ng unchan ged. Stable subple ural micron odule in the left lower lobe apical segmen t. No new consol idatio n, pleura l effusi on or pneumo thorax . PAGE 1 OF 2 Name: TERESA SHARP : 1960 Accoun t #: [id number] Age: 63 Years Patien t Type: Outpat ient Sex: F Access ion#: [id number] Exam Descri ption: CT CHEST W [...] scarri ng in the right upper lobe record pressman ior segmen t. No new consol idatio n, pleura l effusi on or pneumo thorax . 2. Stable subple ural micron odule in the left lower lobe apical segmen t. 3. Mild to modera te caballero ry calcif icatio ns. Mitral valve calcif icatio ns. Electr onical ly signed by: Iliana carreon MD 2024 04:10 AM EDT RP Workst ation: [id number] Princi pal Interp reter Name: Iliana carreon Provid er ID: [id number] PAGE 2 OF 2 CC'ed Logic: Orderi ng Provid er: ELGARI ED YOUSOF CC Provid er: SHEN PATTERSON AD Attend ing Provid er: ELGARI ED YOUSOF Referr ing Provid er: ELGARI ED YOUSOF [facility] [id number] [facility] (Central Scheduling) [address] [place] [address], [address], 08/18/2024 08:16:46 Result Notes Documentation Provider Name and Address Organization Details Recorded Time Pet-ct, Skull Base To Mid-thigh Scan : [address] [address] (Phone) IMAGING REPORT Name: TERESA [...] MD 02/18/2024 11:46 AM EDT RP Principal Roofing Foreman Name: Ebonie Olmos Provider ID: [id number] PAGE 3 OF 3 CC'ed Logic: Ordering Provider: GAYLE GIMENEZ CC Provider: SHEN HERNADEZ Attending Provider: GAYLE GIMENEZ Referring Provider: GAYLE GIMENEZ Admitting Provider: GAYLE LANDEROS [place], [place] - [facility] [place] 02/23/2024 15:09:34 Ct, Abdomen + Pelvis, W/o Contrast : [address] [address] (Phone) IMAGING REPORT Name: TERESA URBINA Lizz : 1960 Age: 63 Years Patient Type: Outpatient Sex: F Exam Description: CT CHEST/ABD/PEL NO PO-IV ONLY Exam Reason: malignant neoplasm unspc brochus or lung Order Date/Time: 06/24/2024 02:49:15 PM Dictated By: Luis Rodriguez MD Ordering Physician: PERNELL ARAUJO Attending Physician: PERNELL ARAUJO CT CHEST ABDOMEN PELVIS WITH IV CONTRAST, 06/24/2024 1:49 PM [facility] INDICATION: malignant neoplasm unspc brochus or lung [...] by: Luis Rodriguez MD 06/24/2024 10:53 PM [facility] Principal Roofing Foreman Name: Luis Rodriguez Provider ID: [id number] PAGE 3 OF 3 CC'ed Logic: Ordering Provider: GAYLE GIMENEZ CC Provider: SHEN HERNADEZ Attending Provider: GAYLE GIMENEZ Referring Provider: GAYLE GIMENEZ Admitting Provider: SAMANTA Price - [facility] - [place] & [place] 06/27/2024 13:59:26 Ct, Chest, W/ Contrast : [address] [address] (Phone) IMAGING REPORT Name: TERESA [...] MD 08/18/2024 04:10 AM EDT RP Principal Roofing Foreman Name: Hardik Duff Provider ID: [id number] PAGE 2 OF 2 CC'ed Logic: Ordering Provider: NAT BONILLA CC Provider: SHEN HERNADEZ Attending Provider: NAT BONILLA Referring Provider: NAT BONILLA Admitting Provider: NAT Bush null, [place] - [facility] & [place] 08/18/2024 08:16:46 Problems Name Problem SNOMED Code Status Onset Date Resolution Date Notes Provider Name and Address Organization Details Recorded Time Prieto hematuria 021681472 Active 2021 Catherine Lamb null, [place] [facility] [place] 09:59:40 Family history of malignant neoplasm 327313887 Active 2021 Maribeth Santos null[place] & [place] 2 11:12:49 Retention of urine 949486375 Active 2021 Catherine Lamb null[place] 2 10:00:08 Diabetes mellitus 26314245 Active 2021 Maribeth [place] 2 11:12:49 Chronic obstructive pulmonary disease 71664150 Active 2021 Maribeth [place] 2 11:12:49 Hypertensive disorder 45927302 Active 2021 Maribeth barksdale, [place] - [facility] - [place] & [place] 2 11:12:49 Smoker 87754375 Active 2021 Maribeth barksdale, [place] - [facility] - [place] & [place] 2 11:12:49 Urethral caruncle 4017520 Active 2021 Maribeth [place] 2 11:12:49 Polyp of urethra 49586795 Active 2021 Maribeth barksdale, [place] 2 11:12:49 Atrophic vaginitis 44731711 Active 2021 Maribeth barksdale, [place] 2 11:12:49 Cigarette smoker 61611310 Active Maribeth Santos null[place] 2 11:12:49 Family history of malignant neoplasm of kidney 808725500 Active Maribeth [place] 2 11:12:49 Gastroesophage al reflux disease 982099207 Active 2022 Hafsa Hung null[place] 3 09:26:51 Chemotherapy-i nduced nausea and vomiting 60394561 Active 2023 Zoey Conti null[place] 4 14:16:16 Abdominal bloating 430881898 Active 2023 Maribel Overton NP [address], [address], [place], [address], [place] & [place] 4 09:03:07 Acid reflux 888954968 Active 2023 Maribel Overton NP [address], [address], [place], [address], [place] & [place] 4 09:03:07 Hyperplastic polyp of large intestine 419660451 Active 2023 Maribel Overton NP [address], [address], [place], [address], [place] & [place] 4 09:03:07 Multiple renal cysts 242540037 Active 2023 Maribel Overton NP [address], [address], [place], [address], [place] [facility] & [place] 4 09:03:07 Increased body mass index 80079839 Active 2023 Maribel Overton NP [address], [address], [place], [address], [place] [facility] 4 09:03:08 Diverticular disease of colon 938464750 Active 2023 Maribel Overton NP [address], [address], [place], [address], [place] [facility] 4 09:03:08 Problem Notes None recorded. Procedures Surgical History Date Name Laterality Status Provider Name and Address Organization Details Recorded Time 07/20/19 25 6 Minute Walk Test completed Mary [place] - [facility] & [place] 07/19/2024 16:16:43 10/26/19 24 removal of implantable venous access port completed Rayne [place] - [facility] & [place] 10/27/2023 08:16:16 09/25/19 24 insertion of implantable venous access port completed Rayne [place]imental [place] - [facility] - [facility] & [place] 09/28/2023 09:27:25 08/18/19 24 6 Minute Walk Test completed Amanda Tacho [place] - [facility] & [place] 08/18/2023 13:36:17 06/30/19 24 6 Minute Walk Test completed Mary Bush [place] - [facility] - [facility] & [place] 06/30/2023 16:35:48 04/22/20 22 EMG/ Nerve Conduction Study completed Bairon Valente M.D [address], [address], [place], [address], [place] [facility] - [facility] & [place] 04/27/2022 18:10:54 04/03/20 22 EMG/ Nerve Conduction Study completed Bairon Valente M.D [address], [address], [place], [address], [place] [facility] - [facility] & [place] 04/03/2022 15:01:54 03/24/20 22 Cystoscopy-Fema le completed Vonnie Brian [place] [facility] & [place] 03/24/2022 15:46:34 12/03/19 22 Date of Last Pap Smear completed maribeth cabezas [place] - [facility] - [facility] & [place] 06/16/2022 09:02:06 08/07/19 22 completed maribeth cabezas [place] - [facility] - [facility] & [place] 06/16/2022 09:02:06 ligation of bilateral fallopian tubes completed Maribeth Larose [place] [facility] - [facility] & [place] 08/24/2023 10:05:29 procedure on ear completed Maribeth Lar[place] [facility] [place] [facility] & [place] 08/24/2023 10:05:46 Colonoscopy completed Rayne Simental [place] - [place] - [facility] & [place] 09/17/2023 11:04:05 dental surgical procedure completed Rayne [place]imental [place] [facility] [place] [facility] & [place] 09/17/2023 11:04:15 Imaging Results None recorded. Procedure Notes None recorded. Medical Equipment None Reported. Allergies Allergen ID Allergen Name Allergen Category Reaction Reaction Severity Criticality Documentation Date Start Date Code Code System Note Provider Name and Address Organization Details Recorded Time 75674 Keflex medicatio n Not available Not available Not available 03/21/202274897 7 RxNorm SAMANTA [place] - [place] & [place] 2 09:59:05 29354 meloxicam medicatio n Not available Not available Not available 03/21/2022 77340 RxNorm SAMANTA Smith [facility] - [place] & [place] 2 09:59:13 76873 lisinopri l medicatio n Not available Not available Not available 03/21/2022 54743 RxNorm SAMANTA Smith - [place] & [place] 2 09:59:22 Medications Name Sig Start Date [...] Not Available No t Available Dexcom G6 Downstream Biomanufacturing Technician USE TO TEST BLOOD SUGAR DIRECTED active [...] Updated DateTime 5 170.18 cm 38.7 kg/m2 770043. 75 g 98.4 [degF] 94 % 94 % 87 /min 121/55 mm[Hg] Paige Puga [place] - [facility] & [place] 5 10:25:52 Date Recorded Body height Body mass index (BMI) Body weight Body temperature Oxygen saturation Oxygen saturation in Arterial blood by Pulse oximetry Heart rate Systolic And Diastolic Provider Name and Address Organization Details Last Updated DateTime 5 170.18 cm 39.8 kg/m2 453442. 46 g 97.4 [degF] 94 % 94 % 82 /min 130/80 mm[Hg] Mary Bush [place] - [facility] [facility] & [place] 5 15:42:45 Date Recorded Body height Body mass index (BMI) Body weight Oxygen saturation Oxygen saturation in Arterial blood by Pulse oximetry Heart rate Systolic And Diastolic Provider Name and Address Organization Details Last Updated DateTime 4 170.18 cm 33 kg/m2 76323.9 9 g 94 % 94 % 134 /min 98/76 mm[Hg] Agustina Bush [facility] & [place] 4 13:10:21 Date Recorded Body height Body mass index (BMI) Body weight Body temperature Oxygen saturation Oxygen saturation in Arterial blood by Pulse oximetry Heart rate Systolic And Diastolic Provider Name and Address Organization Details Last Updated DateTime 4 170.18 cm 36.5 kg/m2 321669. 02 g 97.9 [degF] 94 % 94 % 90 /min 124/84 mm[Hg] Mary Bush [facility] & [place] 4 13:01:46 Date Recorded Body height Body mass index (BMI) Body weight Body temperature Oxygen saturation Oxygen saturation in Arterial blood by Pulse oximetry Heart rate Systolic And Diastolic Provider Name and Address Organization Details Last Updated DateTime 4 170.18 cm 38.1 kg/m2 388882. 31 g 98.1 [degF] 95 % 95 % 91 /min 140/60 mm[Hg] Maribeth Larose [facility] & [place] 4 09:19:52 Social History Question Answer Notes LastModified by Organizat ion Details LastModified Time Tobacco Smoking Status Former Smoker quit [id number] Maribeth Larose [facility] & [place] 02/08/2024 09:22:44 Do You Have An Advance Directive? No [email or web address] Information not available 04/14/2022 Are You Blind Or Do You Have Difficulty Seeing? No Information not available 06/16/2022 What Is Your Level Of Caffeine Consumption? Occasional [email or web address] Information not available 08/24/2023 What Was The Date Of Your Most Recent Tobacco Screening? 08/24/2023 Information not available 08/24/2023 At What Age Did You Start Smoking Tobacco? 15 [email or web address] Information not available 02/08/2024 Are You Passively Exposed To Smoke? Yes [email or web address] Information not available 06/16/2022 How Much Tobacco Do You Smoke? 1 PPW [email or web address] Information not available 09/28/2023 Has Tobacco Cessation Counseling Been Provided? No [email or web address] Information not available 08/24/2023 How Many Years Have You Smoked Tobacco? 45 [email or web address] Information not available 06/16/2022 Sex: Unknown Functional [...] used smokeless tobacco? Never used smokeless tobacco [email or web address] Information not available 04/14/2022 What is your exercise level? None [email or web address] Information not available 06/16/2022 Mental Status Question Answer Note LastModified by Organization D etails LastModified Time Do you feel stressed (tense, restless, nervous, or anxious, or unable to sleep at night)? [id number] Information not available 04/14/2022 Family History Relationship Description Onset Age of this Age Resolved Age Notes LastModified by Organization Details LastModified Time Brother Suspected kidney cancer [email or web address] Not available 07/19 15:03:48 Mother Heart disease [email or web address] Not available 2023 09:28:41 Mother Renal failure syndrome [email or web address] Not available 07/19 15:03:48 Mother Diabetes mellitus [email or web address] Not available 07/19 15:03:48 Mother Mother [email or web address] Not available 07/19 15:03:48 Father Diabetes mellitus [email or web address] Not available 07/19 15:03:48 Father Heart disease [email or web address] Not available 2023 09:29:00 Father Father [email or web address] Not available 07/19 15:03:48 Medical History Condition [...] SNOMED-CT Code Diagnosis ICD10 Code Diagnosis Note [id number] Anders Meredith MD [facility] [address] [address] 03/24/2022 14:01:00 03/24/2022 16:28:54 Prieto hematuria 265295384 R31.0 Family his tory of malignant neoplasm of kidney 458348503 Z80.51 Brother Smoker 07561414 F17.210 Retention of urine 09790 4002 R33.9 Urethral caruncle 955346 3 N36.2 Polyp of urethra 3488279 1 N36.2 Atrophic vaginitis 60266 000 N95.2 [id number] Anders Meredith MD [facility] [address] [facility] [place] [address] 07/22/2022 09:33:10 07/22/2022 10:33:55 Prieto hematuria 802241628 R31.0 Likely due to urethral caruncle Family his tory of malignant neoplasm of kidney 990121919 Z80.51 Brother Smoker 64001536 F17.210 Urethral caruncle 628905 3 N36.2 Polyp of urethra 9944994 1 N36.2 Atrophic vaginitis 05117 000 N95.2 Cyst of kidney 179227620 N28.1 bilateral with Bosniak 2 cysts on the right. Noncomplia nce with treatment 7983446 Z91.[id number] [facility] [address],[facility] [address] [place] [address] 04/03/2022 11:05:57 04/03/2022 11:43:47 Bilateral carpal tunnel syndrome 5553587779 2391964 G56.03 Neuralgia 69412010 M79.2 Paresthesia 83766743 R20 .2 [id number] MD [facility] - [address] [facility],[place] [address] [place] [address] 04/14/2022 09:13:12 04/14/2022 10:02:53 Family history of malignant neoplasm of kidney 266192298 Z80.51 follow with PCP and urologist History of hypertension 293663141 Z86.79 follow with PCP-diet suggest Chronic ob structive pulmonary disease 30541101 J44.9 follow with PCP anti-reflu x measure Nausea 173037556 R11.0 could be secondary to gastropare sis [...] symptoms given endoscopy further management Abdominal pain 71644374 R10.9 more for bloating she gets discomfort went is bloated although has normal bowel movement she is getting EGD colonoscop y with Dr. Hurley in May advised to keep that appointmen t and come back after the ultrasound the abdomen in 2 3 months Nausea and vomiting 1693 1999 R11.[id number] [facility] [address] [facility] [address] [place] [address] 04/22/2022 10:39:43 04/22/2022 11:47:21 Lumbosacral radiculitis 04772405 M54.17 Hyperesthesia 82590520 R 20.3 [id number] MD [facility] - [address] [facility],[place] [address] [place] [address] 06/16/2022 08:34:07 06/16/2022 10:33:39 Nausea 777024903 R11.0 could be secondary to gastropare sis [...] smoothies low residue Decrease in appetite 643 11673 R63.0 small to 4-5 meals a day do 4 hour gastric emptying study and follow-up in 2 3 months prescripti on for Protonix and FiberCon sent Gastroesop hageal reflux disease without esophagitis 762853526 K21.9 his reflux measure discontinu e coffee soda Protonix started has benign fundic polyp Diverticul ar disease of colon 205509160 K57.30 probiotic fiber suggested like FiberCon as she cannot eat enough fiber for the stomach [id number] Gordon Abel MD [facility] - [address] [place] [address] 09/15/2022 08:59:59 09/15/2022 13:24:46 Nausea 797673908 R11.0 she is trying to follow gastropare [...] all this thing Non-alcoho lic fatty liver 509765408 K76.0 continue low carb fatty liver diet Diverticul ar disease of colon 382259449 K57.30 probiotic fiber suggested like FiberCon as she cannot eat enough fiber for the stomach Fundic gla nd polyposis of stomach 273504836 K31.7 benign fundic polyp consider management at this time follow-up in 6 months [id number] Anders Meredith MD [facility] [address] [facility] [place] [address] 03/27/2023 11:14:58 03/27/2023 11:42:19 Cyst of kidney 943329011 N28.1 bilateral with Bosniak 2 cysts on the right. Prieto hematuria 59744865 5 R31.0 Likely due to urethral caruncle Family his tory of malignant neoplasm of kidney 132776307 Z80.51 Brother Smoker 42557216 F17.210 Urethral caruncle 346943 3 N36.2 Polyp of urethra 9681545 1 N36.2 Atrophic vaginitis 91385 000 N95.2 Noncomplia nce with treatment 6700569 Z91.199 [id number] Anders Meredith MD [facility] [address] [facility],[address] [place] [address] 05/26/2023 15:54:28 05/26/2023 16:02:14 Cyst of kidney 535388543 N28.1 bilateral with Bosniak 2 cysts on the right. Prieto hematuria 43315972 5 R31.0 Likely due to urethral caruncle Family his tory of malignant neoplasm of kidney 627427078 Z80.51 Brother Smoker 50516285 F17.210 Urethral caruncle 842276 3 N36.2 Polyp of urethra 0521841 1 N36.2 Atrophic vaginitis 42628 000 N95.2 Noncomplia nce with treatment 2001812 Z91.199 [id number] Irene Johns M.D [facility] W - [address] [place] [address] [address] [address] 06/30/2023 14:42:20 06/30/2023 16:27:21 Dyspnea 986384164 R06.00 Nicotine dependence 5629 4008 Z87.891 Gastroesop hageal reflux disease without esophagitis 001696797 K21.9 [id number] Gordon Abel MD [facility] [address] [place] [address] [address] [place] [address] 07/27/2023 13:02:25 07/27/2023 13:59:41 Abdominal bloating 770086566 R14.0 given informatio n on low FODMAP diet along with probiotics Vu colon Health she is going to eliminate food that gives her gas especially certain vegetables she is off pancreatic enzyme if not better will do SIBO breath test with normal gastric emptying study Acid reflux 435394550 K2 1.9 continue PPI anti-reflu x measure weight reduction low acid diet follow-up in 4 months Hyperplast ic polyp of large intestine 917252392 K63.5 with the type of polyp is generally we do 10 years unless symptoms or signs for colonoscop y Multiple renal cysts 253 355177 N28.[address] follow with PCP Increased body mass index 72386006 E66.9 prevent metabolic liver disease advise low carb diet probiotic excess informatio n CHAPMAN in the diet associated with CHAPMAN given Diverticul ar disease of colon 389114665 K57.30 probiotic fiber suggested like FiberCon as she cannot eat enough fiber for the stomach [id number] Irene Johns M.D [facility] [address] [place] [address] 08/05/2023 12:57:43 08/05/2023 14:01:45 Dyspnea 952886769 R06.00 Nicotine dependence 5629 4008 Z87.891 Gastroesop hageal reflux disease without esophagitis 058214267 K21.9 Nodule of lung 158190194 R91.1 [id number] Irene Johns M.D [facility] [address] [place] [address] 08/18/2023 13:04:03 08/18/2023 13:40:14 Dyspnea 393510682 R06.00 Nicotine dependence 5629 4008 Z87.891 Gastroesop hageal reflux disease without esophagitis 682475314 K21.9 Nodule of lung 547026075 R91.1 Small cell carcinoma of lung 663761846 C34.90 [id number] Pernell Araujo MD [facility] [address] [place] [address] 08/24/2023 09:45:34 08/24/2023 10:54:19 Small cell carcinoma of lung 845821100 C34.90 Low-dose lung cancer screening CT on [...] etoposide starting following staging imaging. Cigarette smoker 7052233 7 F17.210 Current smoker. Will address smoking cessation as further imaging performed. Anxiety 77150421 F41.9 Anxiety with MRI. Will add as needed Valium. Will follow-up [id number] Summer Martines PA-C [facility] [address] [place] [address] 09/07/2023 07:58:02 09/07/2023 09:25:24 Small cell carcinoma of lung 125355372 C34.90 Low-dose lung cancer screening CT on [...] radiation. Chemothera py education performed. Cigarette smoker 0945443 7 F17.210 Current smoker. Will address smoking cessation as further imaging performed. Anxiety 82058765 F41.9 Anxiety with MRI. Will add as needed Valium. Will follow-up Antineopla stic chemotherapy regimen 151553720 Z51.11 Cycle 1 of etoposide and cisplatin on September 07, 2023. Chemothera py education performed. [id number] Marion Siddiqui DO [facility] General Surgery - [address] [place] [address], [address] [facility] [place] [address] 09/17/2023 10:09:43 09/21/2023 10:14:39 Small cell carcinoma of lung 665866172 C34.90 we will schedule her for power port placement at the earliest convenienc e. The procedure, risks and benefits were discussed with her and she agrees to proceed. She will have to stop her aspirin 7 days prior to the procedure. Type 2 munira betes mellitus without complication 712272490 E11.9 we will get a fasting blood sugar preoperati vely. Essential hypertension 30153871 I10 we will get blood work and an EKG preoperati vely [id number] Summer Martines PA-C [facility] [address] [place] [address] 09/28/2023 07:55:54 09/28/2023 08:35:00 Small cell carcinoma of lung 276246943 C34.90 Low-dose lung cancer screening CT on [...] radiation after completion concurrent radiation. Cigarette smoker 7167326 7 F17.210 Current smoker. Will address smoking cessation as further imaging performed. Anxiety 81383087 F41.9 Anxiety with MRI. Will add as needed Valium. Will follow-up Antineopla stic chemotherapy regimen 761811606 Z51.11 Cycle 1 of etoposide and cisplatin on September 07, 2023. Chemothera py education performed. Cycle 2 of etoposide and cisplatin on September 28, 2023. [id number] Irene Johns M.D [facility] W - [address] [place] [address] [place] [address] 09/29/2023 15:06:32 09/29/2023 16:06:06 Dyspnea 491773879 R06.00 Nicotine dependence 5629 4008 Z87.891 Gastroesop hageal reflux disease without esophagitis 502592247 K21.9 Nodule of lung 455867260 R91.1 Small cell carcinoma of lung 512967398 C34.90 [id number] DO Manfred Phippsjustin nataly General Surgery - [address] [place] [address], [address] [place] [address] 10/06/2023 11:13:56 10/07/2023 08:01:43 Postoperative visit 122791447 Z48.89 Status post power port placement she is doing well. She does not need to see me again unless she has a problem. Small cell carcinoma of lung 592213821 C34.90 we discussed that the port can stand for years as long as it is functional and does not become infected. [id number] Pernell Araujo MD [facility] [address] [place] [address] 10/19/2023 07:53:40 10/19/2023 09:32:29 Small cell carcinoma of lung 019679618 C34.90 Low-dose lung cancer screening CT on [...] next few weeks. Will follow-up Cigarette smoker 2776022 7 F17.210 Current smoker. Will address smoking cessation as further imaging performed. Anxiety 73625152 F41.9 Anxiety with MRI. Will add as needed Valium. Will follow-up Antineopla stic chemotherapy regimen 346810882 Z51.11 Cycle 1 of etoposide and cisplatin on September 07, 2023. Chemothera py education performed. Cycle 2 of etoposide and cisplatin on September 28, 2023.Radia tion therapy completed during cycle 2. Cycle 3 of cisplatin and etoposide on October 19, 2023. [id number] Summer Martines PA-C [facility] [address] [place] [address] 11/09/2023 08:09:17 11/09/2023 08:49:48 Small cell carcinoma of lung 101737988 C34.90 Low-dose lung cancer screening CT on [...] continue with last cycle today. Cigarette smoker 2200933 7 F17.210 Current smoker. Will address smoking cessation as further imaging performed. Anxiety 78767471 F41.9 Anxiety with MRI. Will add as needed Valium. Will follow-up Antineopla stic chemotherapy regimen 883139717 Z51.11 Cycle 1 of etoposide and cisplatin on September 07, 2023. Chemothera py education performed. Cycle 2 of etoposide and cisplatin on September 28, 2023.Radia tion therapy completed during cycle 2.Cycle 3 of cisplatin and etoposide on October 19, 2023.Cycle 4 of cisplatin and etoposide on November 09, 2023. Anemia 471828955 D64.9 Will follow up on labs. [id number] Irene Johns M.D [facility] W - [address] [place] [address] [address] [place] [address] 01/25/2024 12:55:29 01/25/2024 13:23:22 Dyspnea 881593274 R06.00 Nicotine dependence 5629 4008 Z87.891 Gastroesop hageal reflux disease without esophagitis 217810929 K21.9 Nodule of lung 014856113 R91.1 Small cell carcinoma of lung 959448000 C34.90 [id number] Pernell Araujo MD [facility] -[address] [place] [address] 02/08/2024 09:02:49 02/08/2024 10:29:55 Small cell carcinoma of lung 253076500 C34.90 Low-dose lung cancer screening CT on [...] MRI of the brain next month at [facility] in [place]. Will follow up evaluation with Radiation Medicine. Cigarette smoker 6500316 7 F17.210 Current smoker. Will address smoking cessation as further imaging performed. Anxiety 86654868 F41.9 Anxiety with MRI. Will add as needed Valium. Will follow-up Antineopla stic chemotherapy regimen 688537722 Z51.11 Cycle 1 of etoposide and cisplatin on September 07, 2023. Chemothera py education performed. Cycle 2 of etoposide and cisplatin on September 28, 2023.Radia tion therapy completed during cycle 2.Cycle 3 of cisplatin and etoposide on October 19, 2023.Cycle 4 of cisplatin and etoposide on November 09, 2023. Idiopathic peripheral neuropathy [id number] G60.9 Patient with history of peripheral neuropathy . Currently on gabapentin 600 mg 4 times a day. Refill for gabapentin sent. [id number] Pernell Araujo MD [facility] [address] [facility] [place] [address] 05/19/2024 10:09:43 05/19/2024 11:23:53 Small cell carcinoma of lung [id number] C34.90 Low-dose lung cancer screening CT on [...] again in another few months. Cigarette smoker [id number] F17.210 Current smoker. Will address smoking cessation as further imaging performed. Anxiety [id number] F41.9 Anxiety with MRI. Will add as needed Valium. Will follow-up Antineopla stic chemotherapy regimen [id number] Z51.11 Cycle 1 of etoposide and cisplatin on September 07, 2023. Chemothera py education performed. Cycle 2 of etoposide and cisplatin on September 28, 2023.Radia tion therapy completed during cycle 2.Cycle 3 of cisplatin and etoposide on October 19, 2023.Cycle 4 of cisplatin and etoposide on November 09, 2023. Idiopathic peripheral neuropathy [id number] G60.9 Patient with history of peripheral neuropathy . Currently on gabapentin 600 mg 4 times a day. Refill for gabapentin sent. [id number] Irene Johns M.D [facility] [address] [place] [address] [place] [phone] 07/19/2024 15:01:50 07/19/2024 16:16:02 Dyspnea [id number] R06.00 Nicotine dependence 5629 [id number] Z87.891 Gastroesop hageal reflux disease without esophagitis [id number] K21.9 Nodule of lung [id number] R91.1 Small cell carcinoma of lung [id number] C34.90 Health Concerns Section Related Observation LastModified by Organization Detai ls LastModified Time None Recorded Concern Status LastModified by Organization Details LastModified Time None Recorded Advance Directives Directive N: Payers Insurance Date Sequence Insurance Name Policy Number Policy Hutson Covered Member ID Hutson Member ID Guarantor Name 05/19/2024 1 [place] [id number] Teresa Urbina [id number] Teresa Urbina 09/10/2024 1 [facility] (MEDICAID REPLACEMENT - HMO) Teresa Urbina [id number] Teresa Urbina Notes Date Note Type Note [...] hoarse after having treatments. Irene Johns M.D [address] [place] [address], [address], [address], [facility] - [facility] & [place] 01/25/2024 16:26:43 02/08/2024 text/html 63 yo F [...] Hopeful continued observation only. Pernell Araujo MD [address] [facility], [place], [address], [place] - [facility] - [place] & [place] 02/08/2024 10:31:17 05/19/2024 text/html 63 yo F [...] another few months. Pernell Araujo MD [address], [place], [address], [place] - [facility] & [place] 05/19/2024 11:51:12 07/19/2024 text/html Patient is a [...] hospitalization for breathing issues. Irene Johns M.D [address] [place] [address], [address], [place], [address], [facility] - [facility] & [place] 07/19/2024 17:02:42 OBGyn Episode No OBEpisode recorded.
--- OUTSIDE RECORDS SUMMARY | 2024-11-25 15:46 | XMS_ITS | Encounter Summary ---
Author Organization Healthcare Address [address] [place] [address] Care Team Providers Care Director Women Name Role Phone Laurie Gutierrez MD Primary Care Provider [phone] Joshua Martínez MD Unavailable Encounter Details Date [...] first t laurie in the morning (EYE-PROFESSOR OF GENETICS) to steady your nerves or to get rid of a hangover? 0 10/27/2024 CAGE Questionnaire Score 0 025 Utilities Answer Date Recorded In the past 12 months has [employer], gas, oil, or water company threatened [...] [facility] [address] [facility], 2nd [place] [address] 11/29/2024 11:00 AM EDT Office Visit [facility] [address] [facility], 2nd [place] [address] Satnam Colvin MD [address] [facility] [address] [place] [address] 11/29/2024 12:30 PM EDT Appointment [facility] [address] [place] [address] 11/30/2024 1:30 PM EDT Appointment [facility] 1 [address] [place] [address] 12/01/2024 2:00 PM EDT Appointment [facility] [address] [place] [address] 12/06/2024 11:40 AM EDT Appointment [facility] Radiation [address] [facility]. [id number] [place] [address] Haven Blum, BREEDING MANAGER [address] [facility] [address] [place] [address] 01/19/2025 9:30 AM EDT Appointment [facility] Radiology [address], [address]st [place] [address] 01/19/2025 10:45 AM EDT Office Visit [place] [facility] [address], [address]st [place] [address] Abhilash Bangura MD [address] [place] [address] 03/08/2025 1:00 PM EDT Office Visit [facility] Montesano Wenceslao [address] 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 Panic 10/26/2024 10/31/2024 Assessment Noted Time PHQ-9 Depression Total Score: 0 09/01/19 25 3:26 PM EDT A fall risk assessment has been complete d for the patient 11/08/2024 2:02 PM EDT A Body Mass Index follow-up plan has been documented for the patient 11/08/2024 5:14 PM EDT documented as of this encounter Care Teams Director Women Relationship Specialty Start Date End Date Laurie Gutierrez MD [address] [place] [address] PCP - General 12/09/23 Joshua Martínez MD [address] [place] [phone] Consulting Physician Radiation Oncology 09/19/24 documented as of this encounter
--- OUTSIDE RECORDS SUMMARY | 2024-11-25 15:47 | XMS_ITS | Encounter Summary ---
Author Organization Healthcare Address [address] [place] [address] Care Team Providers Care Ornamental Brick Installer Name Role Phone Laurie Gutierrez MD Primary Care Provider [phone] Joshua Martínez MD Unavailable Encounter Details Date Type Department Care Team (Late st Contact Info) Description 11/02/2024 Orders Only [facility] [address] [place] [address] Radiation Oncology, Physician, [facility] [place] [address] Social History Tobacco Use Types Packs/Day Years [...] drink first t laurie in the morning (EYE-TEN PIN BOWLING CENTRE MANAGER) to steady your nerves or to [...] [facility] [address] [address] 11/29/2024 11:00 AM EDT Office Visit [facility] [address] [address] Satnam Colvin MD [address] [facility] [address] [place] [address] 11/29/2024 12:30 PM EDT Appointment [facility] [address] [place] [address] 11/30/2024 1:30 PM EDT Appointment [facility] 1 [address] [place] [address] 12/01/2024 2:00 PM EDT Appointment [facility] [address] [place] [address] 12/06/2024 11:40 AM EDT Appointment [facility] [id number] [place] [address] Haven Blum, MANAGER WINTER [address] [place] [address] 01/19/2025 9:30 AM EDT Appointment [facility] Radiology [address] [place] [address] 01/19/2025 10:45 AM EDT Office Visit [place] [facility] [address], [address] [place] [address] Abhilash Bangura MD [address] [place] [address] 03/08/2025 1:00 PM EDT Office Visit [facility] Alexis Wenceslao 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 [employer]PV[employer] Panic 10/26/2024 10/31/2024 Assessment Noted Time PHQ-9 Depression Total Score: 0 09/01/19 25 3:26 PM EDT A fall risk assessment has been complete d for the patient 10/06/2024 2:29 PM EDT A Body Mass Index follow-up plan has been documented for the patient 10/31/2024 4:09 PM EDT documented as of this encounter Care Teams Ornamental Brick Installer Relationship Specialty Start Date End Date Laurie Gutierrez MD [address] [place] [address] PCP - General 12/09/23 Joshua Martínez MD [address] [place] [phone] Consulting Physician Radiation Oncology 09/19/24 documented as of this encounter
--- OUTSIDE RECORDS SUMMARY | 2024-11-25 15:47 | XMS_ITS | Encounter Summary ---
Author Organization Healthcare Address [address] 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 0 10/27/2024 CAGE Questionnaire Score 0 025 Utilities Answer Date Recorded In the past 12 months has [employer], gas, oil, or water company threatened to shut off services in your home? No 10/26/2024 Comments No Sex and Gender Information Value Date Recorded Sex Assigned at Not on file Legal Sex Female 8:32 PM EDT Gender Identity Not on file Sexual Orientation Not on file documented as of this encounter Plan of Treatment Upcoming Encounters Date Type Department Care Team ([facility] Contact Info) Description 11/29/2024 10:30 AM EDT Clinical Support [facility] [address] [facility], [address] [place] [address] 11/29/2024 11:00 AM EDT Office Visit [facility] [address] [facility], 2nd [place] [address] Satnam Colvin MD [address] [facility] [address] [facility] [address] [place] [address] 11/29/2024 12:30 PM EDT Appointment [facility] 1 [address] [place] [address] 11/30/2024 1:30 PM EDT Appointment [facility] 1 [address] [place] [address] 12/01/2024 2:00 PM EDT Appointment [facility] 1 [address] [place] [address] 12/06/2024 11:40 AM EDT Appointment [facility] Radiation [address] [place] [address] Haven Blum, REHABILITATION TECH [address] [facility] [address] [place] [address] 01/19/2025 9:30 AM EDT Appointment [facility] Radiology [address], [address] [place] [address] 01/19/2025 10:45 AM EDT Office Visit [place] [facility] [address], [address] [place] [address] Abhilash Bangura MD [address] [place] [address] 03/08/2025 1:00 PM EDT Office Visit [facility] Anchor Wenceslao [address] 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 Panic 10/26/2024 10/31/2024 Assessment Noted Time PHQ-9 Depression Total Score: 0 09/01/19 25 3:26 PM EDT A fall risk assessment has been complete d for the patient 11/09/2024 2:52 PM EDT A Body Mass Index follow-up plan has been documented for the patient 11/08/2024 5:14 PM EDT documented as of this encounter Care Teams Spray Unit Feeder Relationship Specialty Start Date End Date Laurie Gutierrez MD [address] [place] [address] PCP - General 12/09/23 Joshua Martínez MD [address] [place] [address] [address] [place] [address] Consulting Physician Radiation Oncology 09/19/24 documented as of this encounter
--- OUTSIDE RECORDS SUMMARY | 2024-11-25 15:47 | XMS_ITS | Data Portability ---
Author Organization [facility] Address [address] [place] [address] Assessment Encounter Date Assessment Date Assessment LastModified by Organization Details LastModified Time 12/02/2021 12/02/2021 Patient tolerated procedure well. Advised that mild vaginal discharge may occur for 24hrs and spotting for 48hrs. Patient will report passage of clots, onset of profuse bleeding, foul vaginal odor, fever and/or pelvic pain. [email or web address] Not available 12/02/2021 10:59:59 Plan of Treatment Reminders Order Date Submit Date Provider Last Modified By Organization Details Last Modified Time Details Appointments None recorded. Lab test, urine 2021 022 [place] [employer], [address] [place] [address] , [place], [address], 2 12:54:31 cytology report, thin prep, smear or scraping, cervical or vaginal 2021 022 [facility], [address], [place], [address], 2 15:09:24 pathology study 2021 022 [facility], [address], [place], [address], 2 15:09:26 pathology study 2021 022 [facility], [address], [address], [place], [address], 15:09:59 HbA1c (hemoglobin A1c), blood 2021 [facility], [address], [place], [address], 06:15:19 CMP, serum or plasma 2021 [facility], [address], [place], [address], 06:15:18 lipid panel, serum 2021 [facility], [address], [place], [address], 06:15:19 CBC w/ auto diff 2021 [facility], [address], [place], [address], 06:15:18 Referral gynecologis t referral 2021 [email or web address] Wilma Gunn [employer], [address] [place] [address] Rd, [place], [address], 15:14:49 Procedures None recorded. Surgeries None recorded. Imaging LDCT, chest, for lung cancer screening 2021 [email or web address] [place] ([facility]), [address] [place] [address] , [place], [address], 10:05:49 US, transvagina l 2021 [email or web address] [place] [employer], [address] [place] [address] , [place], [address], 11:51:30 Medication Orders metformin ER 500 mg tablet,exte nded release 24 hr 2021 [employer], [address] [place] [address], [id number], 09:41:16 omeprazole 20 mg capsule,del ayed release 2021 [facility], [address] [place] [address], [id number], 09:41:14 atorvastati n 40 mg tablet 2021 [facility], [address] [place] [address], [id number], 09:41:14 gabapentin 600 mg tablet 2021 [facility], [address] [place] [address], [id number], 09:41:15 carvedilol 6.25 mg tablet 2021 [facility], [address] [place] [address], [id number], 09:41:15 triamterene 37.5 mg-hydrochl orothiazide 25 mg capsule 2021 [facility], [address] [place] [address], [id number], 09:41:16 amlodipine 5 mg tablet 2021 [facility], [address] [place] [address], [id number], 09:41:15 cyanocobala min (vit B-12) ER 1,000 mcg tablet,exte nded release 2021 [facility], [address] [place] [address], [id number], 09:41:14 Patient TargetsNo targets recorded. Patient Instructions Encounter Date Encounter Id Patient Instructions Last Modified By Organization Details Last Modified Time 09/13/2021 [id number] learning about t ype 2 diabetes [email or web address] Not available 09/13/2021 09:23:25 type 2 diabetes: care instructions [email or web address] Not available 09/13/2021 09:23:25 gastroesophageal reflux disease (GERD): care instructions [email or web address] Not available 09/13/2021 09:23:25 high cholesterol : care instructions [email or web address] Not available 09/13/2021 09:23:25 vaginal bleeding after menopause: care instructions [email or web address] Not available 09/13/2021 09:35:03 high blood press ure: care instructions [email or web address] Not available 09/13/2021 09:23:25 learning about h igh blood pressure [email or web address] Not available 09/13/2021 09:23:25 discussed vagina l bleeding she is past due for BOAT [facility]ER exam will refer to [facility]ER for further evaluation and workup pt verbalized understanding, apt made discussed healthy diet and diabetes plan of care f/u in 6 months for routine diabetes visit [email or web address] Not available 09/13/2021 10:53:07 09/25/2021 [id number] 1. Schedule pelv ic ultrasound, OV and endometrial bx in [place] to evaluate PMB. Not available 09/26/2021 19:53:27 10/21/2021 [id number] US images review ed and discussed with Teresa. Anteverted uterus normal size with 2 small intramural fibroids measuring 1.4 and 1.5 cms. Endometrium measured 5 mm. Right and left ovaries small with normal appearance. Endometrial bx done today. Plan topical estrogens intravaginally twice a week if pathology negative. Not available 10/21/2021 11:06:55 12/02/2021 [id number] 1. Findings discussed with patient. Post-procedure instructions [...] procedure reviewed in detail and preformed today. [email or web address] Not available 12/02/2021 10:59:59 12/18/2021 [id number] smoking cessatio n counseling, greater than 3 [...] Not available 12/19/2021 19:09:28 Reason for Referral [employer] Referral for Po stmenopausal bleeding Referring Physician: Evangelina Nguyen, Family Medicine, Encounter Date: 09/13/2021 Results Created Date Observation Date Name Description Value Unit Range Abnormal Flag Note LastModifiedBy Organization Detail LastModifiedTime 09/14/1909/14/2021 CBC WITH DIFFE RENTI AL/PL ATELE T WBC 7.0 x10e3 /uL 3.4-10 .8 Not Available [facility] ([facility]) [address] [facility], [place], [address], 09/14/2021 06:15:18 09/14/19 22 09/14/2021 CBC WITH DIFFE RENTI AL/PL ATELE T RBC 4.67 x10e6 /uL 3.77-5 .28 Not Available [facility] ([facility]) [address] [facility], [place], [address], 09/14/2021 06:15:18 09/14/19 22 09/14/2021 CBC WITH DIFFE RENTI AL/PL ATELE T hemoglobin 14.6 g/dL 11.1-1 5.9 Not Available [facility] ([facility]) [address] [facility], [place], [address], 09/14/2021 06:15:18 09/14/19 22 09/14/2021 CBC WITH DIFFE RENTI AL/PL ATELE T hematocrit 44.4 % 34.0-4 6.6 Not Available [facility] ([facility]) [address] [facility], [place], [address], 09/14/2021 06:15:18 09/14/19 22 09/14/2021 CBC WITH DIFFE RENTI AL/PL ATELE T MCV 95 fL 79-97 Not Available [facility] ([facility]) [address] [place], [address], 09/14/2021 06:15:18 09/14/19 22 09/14/2021 CBC WITH DIFFE RENTI AL/PL ATELE T MCH 31.3 pg 26.6-3 3.0 Not Available [facility] ([facility]) [address] [place], [address], 09/14/2021 06:15:18 09/14/19 22 09/14/2021 CBC WITH DIFFE RENTI AL/PL ATELE T MCHC 32.9 g/dL 31.5-3 5.7 Not Available [facility] ([facility]) [address] [place], [address], 09/14/2021 06:15:18 09/14/19 22 09/14/2021 CBC WITH DIFFE RENTI AL/PL ATELE T RDW 11.8 % 11.7-1 5.4 Not Available [facility] ([facility]) [address] [facility], [place], [address], 09/14/2021 06:15:18 09/14/19 22 09/14/2021 CBC WITH DIFFE RENTI AL/PL ATELE T platelets 178 x10e3 /uL 150-45 0 Not Available [facility] ([facility]) [address] [facility], [place], [address], 09/14/2021 06:15:18 09/14/19 22 09/14/2021 CBC WITH DIFFE RENTI AL/PL ATELE T neutrophils 61 % not estab. Not Available [facility] ([facility]) [address] [facility], [place], [address], 09/14/2021 06:15:18 09/14/19 22 09/14/2021 CBC WITH DIFFE RENTI AL/PL ATELE T lymphs 30 % not estab. Not Available [facility] ([facility]) [address] [facility], [place], [address], 09/14/2021 06:15:18 09/14/19 22 09/14/2021 CBC WITH DIFFE RENTI AL/PL ATELE T monocytes 4 % not estab. Not Available [facility] ([facility]) [address] [facility], [place], [address], 09/14/2021 06:15:18 09/14/19 22 09/14/2021 CBC WITH DIFFE RENTI AL/PL ATELE T eos 4 % not estab. Not Available [facility] ([facility]) [address] [facility], [place], [address], 09/14/2021 06:15:18 09/14/19 22 09/14/2021 CBC WITH DIFFE RENTI AL/PL ATELE T basos 1 % not estab. Not Available [facility] ([facility]) [address] [facility], [place], [address], 09/14/2021 06:15:18 09/14/19 22 09/14/2021 CBC WITH DIFFE RENTI AL/PL ATELE T immature cells [employer] Not Available [facility] ([facility]) [address] [place], [address], 09/14/2021 06:15:18 09/14/19 22 09/14/2021 CBC WITH DIFFE RENTI AL/PL ATELE T neutrophils (absolute) 4.3 x10e3 /uL 1.4-7. 0 Not Available [facility] ([facility]) [address] [place], [address], 09/14/2021 06:15:18 09/14/19 22 09/14/2021 CBC WITH DIFFE RENTI AL/PL ATELE T lymphs (absolute) 2.1 x10e3 /uL 0.7-3. 1 Not Available [facility] ([facility]) [address] [place], [address], 09/14/2021 06:15:18 09/14/19 22 09/14/2021 CBC WITH DIFFE RENTI AL/PL ATELE T monocytes(ab solute) 0.3 x10e3 /uL 0.1-0. 9 Not Available [facility] ([facility]) [address] [place], [address], 09/14/2021 06:15:18 09/14/19 22 09/14/2021 CBC WITH DIFFE RENTI AL/PL ATELE T eos (absolute) 0.3 x10e3 /uL 0.0-0. 4 Not Available [facility] ([facility]) [address] [place], [address], 09/14/2021 06:15:18 09/14/19 22 09/14/2021 CBC WITH DIFFE RENTI AL/PL ATELE T baso (absolute) 0.1 x10e3 /uL 0.0-0. 2 Not Available [facility] ([facility]) [address] [place], [address], 09/14/2021 06:15:18 09/14/19 22 09/14/2021 CBC WITH DIFFE RENTI AL/PL ATELE T immature granulocytes 0 % not estab. Not Available [facility] ([facility]) [address] [facility], [place], [address], 09/14/2021 06:15:18 09/14/19 22 09/14/2021 CBC WITH DIFFE RENTI AL/PL ATELE T immature grans (abs) 0.0 x10e3 /uL 0.0-0. 1 Not Available [facility] ([facility]) [address] [facility], [place], [address], 09/14/2021 06:15:18 09/14/19 22 09/14/2021 CBC WITH DIFFE RENTI AL/PL ATELE T NRBC [employer]TER Not Available [facility] ([facility]) [address] [facility], [place], [address], 09/14/2021 06:15:18 09/14/19 22 09/14/2021 CBC WITH DIFFE RENTI AL/PL ATELE T hematology comments: [employer]TER Not Available [facility] ([facility]) [address] [facility], [place], [address], 09/14/2021 06:15:18 09/14/19 22 09/14/2021 COMP. METAB OLIC PANEL (14) glucose 129 mg/dL 65-99 above high normal Not Available [facility] ([facility]) [address] [facility], [place], [address], 09/14/2021 06:15:18 09/14/19 22 09/14/2021 COMP. METAB OLIC PANEL (14) BUN 14 mg/dL 8-27 Not Available [facility] ([facility]) [address] [place], [address], 09/14/2021 06:15:18 09/14/19 22 09/14/2021 COMP. METAB OLIC PANEL (14) creatinine 0.65 mg/dL 0.57-1 .00 Not Available [facility] ([facility]) [address] [place], [address], 09/14/2021 06:15:18 09/14/19 22 09/14/2021 COMP. METAB OLIC PANEL (14) eGFR 101 mL/mi n/1.7 3 >59 Not Available [facility] ([facility]) [address] [facility], [place], [address], 09/14/2021 06:15:18 09/14/19 22 09/14/2021 COMP. METAB OLIC PANEL (14) BUN/creatini ne ratio 22 -28 Not Available [facility] ([facility]) [address] [facility], [place], [address], 09/14/2021 06:15:18 09/14/19 22 09/14/2021 COMP. METAB OLIC PANEL (14) sodium 141 mmol/ L 134-14 4 Not Available [facility] ([facility]) [address] [place], [address], 09/14/2021 06:15:18 09/14/19 22 09/14/2021 COMP. METAB OLIC PANEL (14) potassium 4.3 mmol/ L 3.5-5. 2 Not Available [facility] ([facility]) [address] [place], [address], 09/14/2021 06:15:18 09/14/19 22 09/14/2021 COMP. METAB OLIC PANEL (14) chloride 100 mmol/ L 96-106 Not Available [facility] ([facility]) [address] [place], [address], 09/14/2021 06:15:18 09/14/19 22 09/14/2021 COMP. METAB OLIC PANEL (14) carbon dioxide, total 25 mmol/ L 20-29 Not Available [facility] ([facility]) [address], [place], [address], 09/14/2021 06:15:18 09/14/19 22 09/14/2021 COMP. METAB OLIC PANEL (14) calcium 9.4 mg/dL 8.7-10 .3 Not Available [facility] ([facility]) [address] [place], [address], 09/14/2021 06:15:18 09/14/19 22 09/14/2021 COMP. METAB OLIC PANEL (14) protein, total 7.2 g/dL 6.0-8. 5 Not Available [facility] ([facility]) [address], [place], [address], 09/14/2021 06:15:18 09/14/19 22 09/14/2021 COMP. METAB OLIC PANEL (14) albumin 4.5 g/dL 3.8-4. 9 Not Available [facility] ([facility]) [address] [place], [address], 09/14/2021 06:15:18 09/14/19 22 09/14/2021 COMP. METAB OLIC PANEL (14) globulin, total 2.7 g/dL 1.5-4. 5 Not Available [facility] ([facility]) [address] [place], [address], 09/14/2021 06:15:18 09/14/19 22 09/14/2021 COMP. METAB OLIC PANEL (14) A/G ratio 1.7 1.2-2. 2 Not Available [facility] ([facility]) [address] [place], [address], 09/14/2021 06:15:18 09/14/19 22 09/14/2021 COMP. METAB OLIC PANEL (14) bilirubin, total 0.6 mg/dL 0.0-1. 2 Not Available [facility] ([facility]) [address] [facility], [place], [address], 09/14/2021 06:15:18 09/14/19 22 09/14/2021 COMP. METAB OLIC PANEL (14) alkaline phosphatase 90 IU/L 44-121 Not Available [facility] ([facility]) [address] [facility], [place], [address], 09/14/2021 06:15:18 09/14/19 22 09/14/2021 COMP. METAB OLIC PANEL (14) AST (SGOT) 16 IU/L 0-40 Not Available [facility] ([facility]) [address] [place], [address], 09/14/2021 06:15:18 09/14/19 22 09/14/2021 COMP. METAB OLIC PANEL (14) ALT (SGPT) 13 IU/L 0-32 Not Available [facility] ([facility]) [address] [place], [address], 09/14/2021 06:15:18 09/14/19 22 09/14/2021 LIPID PANEL cholesterol, total 124 mg/dL 100-19 9 Not Available [facility] ([facility]) [address] [place], [address], 09/14/2021 06:15:19 09/14/19 22 09/14/2021 LIPID PANEL triglyceride s 67 mg/dL 0-149 Not Available [facility] ([facility]) [address] [place], [address], 09/14/2021 06:15:19 09/14/19 22 09/14/2021 LIPID PANEL HDL cholesterol 47 mg/dL >39 Not Available [facility] ([facility]) [address] [place], [address], 09/14/2021 06:15:19 09/14/19 22 09/14/2021 LIPID PANEL VLDL cholesterol josr 14 mg/dL 5-40 Not Available [facility] ([facility]) [address] [facility], [place], [address], 09/14/2021 06:15:19 09/14/19 22 09/14/2021 LIPID PANEL LDL chol calc ([facility]) 63 mg/dL 0-99 Not Available [facility] ([facility]) [address] [facility], [place], [address], 09/14/2021 06:15:19 09/14/19 22 09/14/2021 LIPID PANEL comment: [employer]TER Not Available [facility] ([facility]) [address] [facility], [place], [address], 09/14/2021 06:15:19 09/14/1909/14/2021 HEMOG LOBIN A1C hemoglobin A1C 6.8 % 4.8-5. 6 above high normal Predi abete s: 5.7 - 6.4 Diabe carolyn: >6.4 Glyce chyna contr ol for adult s with diabe carolyn: <7.0 Not Available [facility] ([facility]) [address] [facility], [place], [address], 09/14/2021 06:15:19 10/22/1910/23/2021 PATHO LOGY LEEANN Hoskins t Mater ial submi tted: . endom etriu m - ENDOM ETRIA L BIOPS Y Not Available [facility] ([facility]) [address] [facility], [place], [address], 10/23/2021 15:09:58 10/22/1910/23/2021 PATHO LOGTerry Hoskins t [...] TMZ 10/23 1246 Local Not Available [facility] ([facility]) [address] [place], [address], 10/23/2021 15:09:58 10/22/19 22 10/23/2021 PATHO LOGY REPOR T . Commen t Elect shira solo veronika d: . Rishi silverman MD, Patho logis t Not Available [facility] ([facility]) [address] [place], [address], 10/23/2021 15:09:58 10/22/19 22 10/23/2021 PATHO LOGY [...] AV 10/22 1024 Local Not Available [facility] ([facility]) [address] [facility], [place], [address], 10/23/2021 15:09:58 10/22/19 22 10/23/2021 PATHO LOGY REPOR T . Commen t Patho logis t provi ded ICD-1 0: N95.0 Not Available [facility] ([facility]) [address] [facility], [place], [address], 10/23/2021 15:09:58 10/22/19 22 10/23/2021 PATHO LOGY REPOR T . Commen t CPT . 72833 1 Not Available [facility] ([facility]) [address] [facility], [place], [address], 10/23/2021 15:09:58 12/03/19 22 12/04/2021 IGP, APTIM A HPV, RFX 16/18 ,45 diagnosis: Commen t NEGAT SVETLANA FOR INTRA EPITH ELIAL ALONSO N OR SHIRLEY LAUREANO . Not Available [facility] ([facility]) [address] [facility], [place], [address], 12/04/2021 15:09:24 12/03/19 22 12/04/2021 IGP, APTIM A HPV, RFX 16/18 ,45 specimen adequacy: Commen t Satis facto ry for evalu ation . Endoc ervic al and/o r squam ous metap lasti c cells (endo cervi josr compo nent) are prese nt. Not Available [facility] ([facility]) [address] [place], [address], 12/04/2021 15:09:24 12/03/19 22 12/04/2021 IGP, APTIM A HPV, RFX 16/18 ,45 clinician provided ICD10: Gato t R85.6 19 Z12.4 Not Available [facility] ([facility]) [address] [facility], [place], [address], 12/04/2021 15:09:24 12/03/19 22 12/04/2021 IGP, APTIM A HPV, RFX 16/18 ,45 performed by: Gato Chavez , Cytot echno logis t (ASCP ) Not Available [facility] ([facility]) [address] [place], [address], 12/04/2021 15:09:24 12/03/19 22 12/04/2021 IGP, APTIM A HPV, RFX 16/18 ,45 electronical ly signed by: Gato Nieves MD, Patho logis t Not Available [facility] ([facility]) [address] [place], [address], 12/04/2021 15:09:24 12/03/19 22 12/04/2021 IGP, APTIM A HPV, RFX 16/18 ,45 . . Not Available [facility] ([facility]) [address] [place], [address], 12/04/2021 15:09:24 12/03/19 22 12/04/2021 IGP, APTIM [...] ts do occur . Not Available [facility] ([facility]) [address] [place], [address], 12/04/2021 15:09:24 12/03/19 22 12/04/2021 IGP, APTIM A HPV, RFX 16/18 ,45 test methodology: Commen t This liqui d based ThinP rep(R ) pap test was ross rome with the use of an image guide meg wagner Not Available [facility] ([facility]) [address] [facility], [place], [address], 12/04/2021 15:09:24 12/03/19 22 12/04/2021 IGP, APTIM A HPV, RFX 16/18 ,45 HPV aptima Negati ve negati ve This nucle ic acid ampli ficat ion test detec ts fourt een high- risk HPV types (16,1 8,31, 33,35 ,39,4 5,51, 52,56 ,58,5 9,66, 68) witho ut diffe renti ation . Not Available [facility] ([facility]) [address] [facility], [place], [address], 12/04/2021 15:09:24 12/03/19 22 12/04/2021 PATHO LOGY REPOR T . Commen t Mater ial submi tted: . PART A: endoc ervix - ENDOC ERVIC AL CURET TAGE PART B: cervi x - CERVI JOSR BIOPS Y 1:00. Modif iers: 1:00 Not Available [facility] ([facility]) [address] [facility], [place], [address], 12/04/2021 15:09:26 12/03/19 22 12/04/2021 PATHO LOGY [...] MXB 12/04 1503 Local Not Available [facility] ([facility]) [address] [facility], [place], [address], 12/04/2021 15:09:26 12/03/19 22 12/04/2021 PATHO LOGY REPOR T . Commen t Elect shira solo veronika d: . Manal i Miguel dennison MD, Patho logis t Not Available [facility] ([facility]) [address] [facility], [place], [address], 12/04/2021 15:09:26 12/03/19 22 12/04/2021 PATHO LOGY [...] CL 12/03 0614 Local Not Available [facility] ([facility]) [address] [facility], [place], [address], 12/04/2021 15:09:26 12/03/19 22 12/04/2021 PATHO LOGY REPOR T . Commen t CPT . 73717 1, 37186 2 Not Available [facility] ([facility]) [address] [facility], [place], [address], 12/04/2021 15:09:26 12/03/19 22 12/02/2021 pregn pablo test, urine HCG negati ve Not Available [facility] [employer] [address] [place] [address] , [place], [address], 12/02/2021 11:00:01 10/22/19 22 10/21/2021 US, trans vagin al No observ ation record ed. [facility] [address] [place] [address] , [place], [address], 10/21/2021 11:04:17 10/22/19 22 US, trans vagin al No observ ation record ed. [facility] [facility] [address] [place] [address] , [place], [address], 10/21/2021 12:56:41 10/24/19 22 10/21/2021 US, trans vagin al No observ ation record ed. [email or web address] [facility] [address] [place] [address] , [place], [address], 10/23/2021 15:29:47 10/24/19 22 10/21/2021 US, trans vagin al No observ ation record ed. BARCODE [facility] [address] [place] [address] , [place], [address], 10/23/2021 14:26:48 12/25/19 22 12/23/2021 MAMMO , scree amelie, digit al, bilat eral No observ ation record ed. [email or web address] [facility] ([facility]) [address] [facility] , [place], [address], 12/25/2021 14:45:13 12/27/19 22 12/26/2021 - ldct lung ross levy [facility] Name: MARIAJOSE SHARP RA [address] [employer] Phys: Baldo weaver NP, George Clemens [place] [address] : 1960 Age: 61 Sex: F Acct: [id number] Loc: G.CT PHONE #: Exam Date: 2021 Status : REG CLI FAX #: Rad# [id number] Unit# [id number] Admit Date: 2021 EXAMS: CPT CODE: [id number] CT CHEST LDCT LUNG SCREEN G0297 [...] ended. PAGE 1 Signed Report (VIGNESH NUED) [facility] Name: MARIA[facility]SE SHARP RA [address] [place], [place] [address]a [employer] [facility] Phys: Baldo weaver NP, George Clemens [facility] [place] [address] : 1960 Age: 61 Sex: F Acct: [id number] Loc: G.CT PHONE #: Exam Date: 2021 Status : REG CLI FAX #: Rad# [id number] Unit# [id number] Admit Date: 2021 EXAMS: CPT CODE: [id number] CT CHEST LDCT LUNG SCREEN G0297 [...] 2021 (1645) Printe d Date/T sammi: 2021 (0378) BATCH NO: N/A PAGE 2 Signed Report CC'ed Logic: Orderi ng Provid er: BALDO Leon Attend ing Provid er: BALDO Leon Referr ing Provid er: BALDO Leon Consul ting Provid er: NATALIYA GEORGE [email or web address] [address] , [place], [address], 01/01/2022 13:53:49 Result Notes None recorded. Problems Name Problem SNOMED Code Status Onset Date Resolution Date Notes Provider Name and Address Organization Details Recorded Time Osteoarthritis 801670285 Active 2018 Paola Hyde null, [place] - [facility] 9 13:26:22 Hyperlipidemia 71540971 Active 2019 Mary Pradhan null, [place] - [facility] 0 09:00:41 Chronic obstructive pulmonary disease 30432186 Active 2020 Gloria Kumar null, [place] - [facility] 1 08:56:26 Gastroesophage al reflux disease 701474840 Active 2020 Gloria Kumar null, [place] - [facility] 1 08:57:37 Nausea 483090109 Active 2020 Paola Hyde null, [place] - [facility] 1 09:01:42 Type 2 diabetes mellitus 52764869 Active 2016 Mary Pradhan null, [place] - [facility] 7 15:12:55 Essential hypertension 74234985 Active 2016 Mary Pradhan shamir, [place] - [facility] 7 15:13:21 Problem Notes None recorded. Procedures Surgical History Date Name Laterality Status Provider Name and Address Organization Details Recorded Time 12/03/19 22 Colposcopy completed Wilma Ocampo, LAB TECHNOLOGIST [address], [place], [address], [place] [facility] 12/02/2021 12:50:52 12/03/19 22 Colposcopy completed Wilma Dolanmond, LAB TECHNOLOGIST [address], [place], [address], [place] [facility] 12/02/2021 12:54:48 12/03/19 22 Colposcopy completed Wilma Dolanmond, LAB TECHNOLOGIST [address], [place], [address], [place] [facility] 12/06/2021 09:17:32 10/22/19 22 Endometrial Biopsy completed Wilma Ocampo, LAB TECHNOLOGIST [address], [place], [address], [place] - [facility] 10/21/2021 11:08:39 10/22/19 22 Endometrial Biopsy completed Wilma Ocampo, LAB TECHNOLOGIST [address], [place], [address], [place] [facility] 10/29/2021 08:09:56 06/17/19 [...] Name and Address Organization Details Recorded Time 567191 meloxicam medicatio n Not available Not available Not available 09/29/2019 79375 RxNorm SAM[place] Humphries [facility] 0 08:50:26 230856 lisinopri l medicatio n cough Not available Not available 09/29/2019 25435 RxNorm SAMANTA Humphries [facility] 0 08:50:49 51133 Keflex medicatio n Not available Not available Not available 02/22/2016201216 7 RxNorm Not Available [facility] 6 10:16:19 Medications Name Sig Start [...] Available Not Available Not Available Dexcom 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 DIRECTED active [...] Updated DateTime 2 170.18 cm 34.5 kg/m2 49113.3 2 g 98 [degF] 86 /min 99 % 99 % 19 /min 110/70 mm[Hg] Timo Knapp [place] - [facility] 2 08:58:16 Date Recorded Body height Body mass index (BMI) Body weight Systolic And Diastolic Provider Name and Address Organization Details Last Updated DateTime 09/25/2021 170.18 cm 33 kg/m2 01595.99 g 114/72 mm[Hg] Shahana Rivas [place] [facility] 09/25/2021 16:10:51 Date Recorded Body height Body mass index (BMI) Body weight Systolic And Diastolic Provider Name and Address Organization Details Last Updated DateTime 10/21/2021 170.18 cm 33 kg/m2 56860.99 g 116/70 mm[Hg] Shahana Rivas [place] [facility] 10/21/2021 10:42:36 Date Recorded Body height Body mass index (BMI) Body weight Systolic And Diastolic Provider Name and Address Organization Details Last Updated DateTime 12/02/2021 170.18 cm 33 kg/m2 42814.99 g 128/70 mm[Hg] Shahana Rivas [place] [facility] 12/02/2021 11:00:32 Date Recorded Body height Body mass index (BMI) Body weight Systolic And Diastolic Provider Name and Address Organization Details Last Updated DateTime 12/18/2021 170.18 cm 32.7 kg/m2 08456.81 g 128/80 mm[Hg] Shahana Rivas [place] [facility] 12/18/2021 16:36:43 Social History Question Answer Notes LastModified by Organizat ion Details LastModified Time Tobacco Smoking Status Current Every Day Smoker Mary barksdale [place] - [facility] 09/16/2016 15:16:08 Able To Swim? Yes [email or web address] Information not available 09/16/2016 Do You Have An Advance Directive? No [email or web address] Information not available 09/25/2021 Do You Wear A Helmet When Biking? No [email or web address] Information not available 09/16/2016 Are You Blind Or Do You Have Difficulty Seeing? No [email or web address] Information not available 09/16/2016 Is Blood Transfusion Acceptable In An Emergency? Yes [email or web address] Information not available 09/25/2021 What Is Your Level Of Caffeine Consumption? Occasional [email or web address] Information not available 09/16/2016 How Much Tobacco Do You Chew? None [email or web address] Information not available 09/16/2016 In The 14 Days Before Symptom Onset, Have You Had Close Contact With A Laboratory-confir med COVID-19 While That Case Was Ill? No [email or web address] Information not available 09/25/2021 In The 14 Days Before Symptom Onset, Have You Had Close Contact With A Person Who Is Under Investigation For COVID-19 While That Person Was Ill? No [email or web address] Information not available 09/25/2021 Have You Been To An Area Known To Be High Risk For COVID-19? No [email or web address] Information not available 09/25/2021 Are You Deaf Or Do You Have Serious Difficulty Hearing? No [email or web address] Information not available 09/16/2016 What Type Of Diet Are You Following? DIABETIC Information not available 09/16/2016 Which Illicit Or Recreational Drugs Have You Used? None [email or web address] Information not available 09/16/2016 Have You Processed Blood Or Body Fluids From An Ebola Virus Disease Patient Without Appropriate PPE? No [email or web address] Information not available 09/25/2021 Do You Reside In Or Have You Traveled To An Area Where Ebola Virus Transmission Is Active? No [email or web address] Information not available 09/25/2021 What Is The Highest Grade Or Level Of School You Have Completed Or The Highest Degree You Have Received? AD42099-8 [email or web address] Information not available 12/18/2021 Swimming/diving No [email or web address] Informati on not available 09/16/2016 Have There Been Any Changes To Your Family Or Social Situation? No [email or web address] Information no t available 12/18/2021 What Is The Fluoride Status Of Your Home? Fluoridated Information not available 09/25/2021 Hard Of Hearing Or Deaf In One Or Both Ears? No [email or web address] Information not available 09/16/2016 Have You Recently Or Are You Planning To Travel To An Area With Zika Virus? No [email or web address] Information not available 09/25/2021 Legally Blind In One Or Both Eyes? No sucnvem51 Information no t available 09/16/2016 Live Alone Or With Others? With Others [email or web address] Information not available 09/16/2016 Do You Have A Medical Power Of Commercial Driver? No Information not available 09/25/2021 What Was The Date Of Your Most Recent Tobacco Screening? 11/26/2020 Information not available 11/26/2020 Do You Use Protection During Sex? No [email or web address] Information not available 09/25/2021 Do You Use Protection Against STDs? No [email or web address] Information not available 09/25/2021 What Is Your Relationship Status? [email or web address] Information not available 10/30/2016 Seat Belts Used Routinely Yes [email or web address] Information not available 09/16/2016 Are You Sexually Active? Yes gkclucq85 Information not available 09/25/2021 Smoke Alarm In Home Yes [email or web address] Information not available 09/16/2016 Do You Have Smoke And Carbon Monoxide Detectors In Your Home? Yes [email or web address] Information not available 12/18/2021 At What Age Did You Start Smoking Tobacco? 14 amlvymc60 Information not available 09/25/2021 Are You Passively Exposed To Smoke? Yes qubjdyd73 Information no t available 09/16/2016 How Much Tobacco Do You Smoke? 1 PPD hriker1 Information not available 09/29/2019 General Stress Level Low Information not available 09/16/2016 Do You Use Sunscreen Routinely? Yes [email or web address] Information not available 09/16/2016 Has Tobacco Cessation Counseling Been Provided? Yes [email or web address] Information not available 09/16/2016 On What Date Was Tobacco Cessation Counseling Provided? 11/26/2020 Information not available 11/26/2020 How Many Years Have You Smoked Tobacco? 20 Information not available 01/18/2019 Do You Have Difficulty Walking Or Climbing Stairs? No [email or web address] Information not available 09/16/2016 What Contraceptive Method Was Reported At Start Of This Visit? None [email or web address] Information not available 09/25/2021 What Contraceptive Method Was Reported At End Of This Visit? None [email or web address] Information not available 09/25/2021 Do You Want To Talk About Contraception Or Prevention During Your Visit Today? No - I Do Not Want To Talk About Contraception Today Because I Am Here For Something Else gvbfowz26 Information not available 09/25/2021 Do You Have Any Future Plans To Get ? No, I Don't Want To Become [email or web address] Information not available 09/25/2021 What Is Your Reason For Having No Contraceptive Method At Start Of This Visit? Other Information not available 09/25/2021 Sex: Female Functional Status Question Answer Note LastModified by Organizat ion Details LastModified Time Do you or have you ever used smokeless tobacco? Former smokeless tobacco user Information not available 01/18/2019 Are you currently employed? No Information not available 09/16/2016 Do you have transportation difficulties? No [email or web address] Information not available 12/02/2021 Are you able to care for yourself? Yes [email or web address] Information n ot available 09/16/2016 Do you have difficulty dressing or bathing? No anbrfbx69 Information not available 09/16/2016 Do you or have you ever used e-cigarettes or vape? Never used electronic cigarettes Information not available 01/18/2019 What is your exercise level? Occasional [email or web address] Information not available 09/16/2016 Do you use any illicit or recreational drugs? No Information not available 09/25/2021 Do you or have you ever used any other forms of tobacco or nicotine? No cnenfmc17 Information not available 09/25/2021 What is your level of alcohol consumption? None kowsddr71 Information not available 09/16/2016 What is your status? Not [email or web address] Information no t available 09/25/2021 Are you able to walk? YESWOREST [email or web address] Information not available 09/16/2016 Do you have difficulty doing errands alone? No fwihboa15 Information not available 09/16/2016 Mental Status Question Answer Note LastModified by Organizat ion Details LastModified Time Do you feel stressed (tense, restless, nervous, or anxious, or unable to sleep at night)? [id number] [email or web address] Information not available 12/18/2021 Do you have difficulty concentrating, remembering or making decisions? No [email or web address] Information no t available 09/16/2016 Family History Relationship Description Onset Age of this Age Resolved Age Notes LastModified by Organization Details LastModified Time Mother Blindness of one eye [email or web address] Not available 2016 15:18:12 Mother Type 2 diabetes mellitus [email or web address] Not available 2016 15:18:34 Mother Kidney disease [email or web address] Not available 2016 15:19:12 Mother Myocardial infarction Not available 09/16 15:19:26 Father Type 2 diabetes mellitus [email or web address] Not available 2016 15:18:34 Father Myocardial infarction [email or web address] Not available 09/16 15:19:26 Sister Fibromyalgia bxkfyrv50 Not avai lable 09/16/2016 15:18:53 Sister Osteoarthrit is [email or web address] Not available 2016 15:20:30 Medical History Condition Response Pancreatitis N Coronary Artery Disease N Gout N Other N Atrial Fibrillation N congenital heart disease N Kidney Stones N Blood Diseases N Hyperthyroidism N Blood Transfusion N Rheumatoid [...] colitis N Cerebrovascular Disease N Depression N Guillain-[place] N Sleep Apnea N Aneurysm N Bronchitis [...] high-dose, quadrivalent, PF 0 completed Andrea Barajaspaxton, LAB TECHNOLOGIST [address], [place], [address], [place] [facility] 02/14/2020 15:06:06 influenza, unspecified formulation 4 completed Not Available [facility] 06/18/2019 02:21:20 influenza, unspecified formulation 4 completed Not Available [facility] 06/18/2019 02:21:20 Influenza, split virus, quadrivalent, preservative 7 completed Not Available [facility] 06/04/2019 03:54:37 Influenza, split virus, quadrivalent, preservative 1 completed Timo [place] [facility] 03/13/2021 10:03:07 Tdap 8 completed Not Available [facility] 06/04/2019 03:54:59 Hep A, adult 8 completed Not Available [facility] 06/04/2019 03:55:12 Influenza, split virus, quadrivalent, PF 8 completed Not Available [facility] 06/04/2019 03:55:22 SARS-COV-2 (COVID-19) vaccine, UNSPECIFIED 1 completed [place] [facility] 08/27/2020 08:54:32 SARS-COV-2 (COVID-19) vaccine, UNSPECIFIED 1 completed [place] [facility] 08/27/2020 08:54:40 COVID-19, mRNA, LNP-S, PF, 100 mcg/0.5mL dose or 50 mcg/0.25mL dose 1 completed Timo Kn[place] [facility] 02/27/2021 08:17:20 zoster recombinant 9 completed Not Available [facility] 06/04/2019 03:55:40 pneumococcal polysaccharide PPV23 9 completed Not Available [facility] 06/04/2019 03:55:37 Hep A, adult 9 completed Not Available [facility] 06/04/2019 03:55:40 Influenza, split virus, quadrivalent, PF 9 completed Not Available [facility] 06/04/2019 03:56:04 Past Encounters Encounter ID Performer Location Encounter Start Date Encounter Closed Date Diagnosis/Indication Diagnosis SNOMED-CT Code Diagnosis ICD10 Code Diagnosis Note [id number] SHARDA Carpenter [place] [address] [address] Armando EDWARDSGRACEAngela [facility] [place] [address] 06/03/2016 12:19:27 06/03/2016 13:33:18 Screening mammography 19964051 Z12.31 Abscess 356091542 L02.91 Essential hypertension 57208391 I10 Diabetes mellitus 291922 09 E11.9 [id number] SHARDA Carpenter [place] [address] [address] Armando EDWARDSSAMIA [facility] [place] [address] 07/04/2016 10:40:44 07/04/2016 11:37:42 Upper respiratory infection 08529650 J06.9 Acute bronchitis 6972907 2 J20.9 Bronchitis 87154260 J40 Cough 05417928 R05 [id number] SHARDA Carpenter [place] [address] [place] [address] 07/22/2016 10:56:16 07/22/2016 12:00:19 Cough 46841418 R05 Bronchitis 68281473 J40 Acute bronchitis 4975832 2 J20.9 Trying to give up smoking 700517418 Z72.0 [id number] SHARDA Carpenter [place] [address] [address] Armando DIANA [facility] [place] [address] 08/15/2016 09:20:34 08/15/2016 11:00:35 Essential hypertension 35082582 I10 Chronic ob structive pulmonary disease 74572780 J44.9 Diabetes mellitus 604706 09 E11.9 Type 2 munira betes mellitus 77665658 E11.9 Tobacco user 590711281 Z 72.0 [id number] SHARDA Bates [place] [address] [place] [address] 09/16/2016 14:49:34 09/16/2016 16:19:00 Acute sinusitis 56242417 J01.90 [id number] Paola Hyde APRN [place] [address] [place] [address] 10/30/2016 13:47:08 10/30/2016 16:08:25 Body mass index 30+ - obesity 101212914 Z68.39 Pain of joint 89834021 M 25.50 [id number] Paola Mary EllenTENN [place] [address] [place] [address] 12/18/2016 09:04:39 12/18/2016 09:51:19 Long-term drug therapy 749516775 Z79.899 Wasp sting 378567421 T63 .461A Pain of joint 37609107 M 25.50 [id number] Paola Hyde LAB TECHNOLOGIST [place] [address] [place] [address] 02/02/2017 09:35:32 02/02/2017 10:43:04 Type 2 diabetes mellitus 19789002 E11.9 Diabetes mellitus 323975 09 E11.9 Renewal of prescription 563872516 Z76.0 Abscess 043827184 L02.91 [id number] Paola Hyde APRN [place] [address] [place] [address] 02/19/2017 15:02:47 02/19/2017 16:30:34 Nicotine dependence 87092955 F17.200 Administra tion of influenza vaccine 56328885 Z23 [id number] Paola Hyde APRN [place] [address] [place] [address] 05/28/2017 12:52:54 05/28/2017 13:56:18 Pain of joint 81769707 M25.50 Renewal of prescription 431533858 Z76.0 Screening mammography 24 412212 Z12.31 Diabetes mellitus 259026 09 E11.9 [id number] Paola HydeETNN [place] [address] [address] [address] 07/07/2017 13:43:26 07/07/2017 14:48:04 Acute exacerbation of chronic obstructive pulmonary disease 762825949 J44.1 Candidiasis of vagina 72 818993 B37.3 [id number] Paolaana Hyde SHARDA [place] [address] [address] BRAUN [facility] [place] [address] 07/16/2017 10:05:38 07/16/2017 12:37:12 Acute exacerbation of chronic obstructive pulmonary disease 647685204 J44.1 Pneumonia 287114693 J18. 9 rtc in 7 to 10 days for follow up cxr [id number] Paola HydeTENN [place] [address] [address] [place] [address] 08/27/2017 08:34:53 08/27/2017 10:05:42 Renewal of prescription 123813432 Z76.0 Essential hypertension 31923699 I10 Type 2 munira betes mellitus 49843106 E11.37X1 [id number] Paola Mary EllenTENN [place] [address] [address] [address] 09/03/2017 08:25:23 09/03/2017 09:54:08 Adult health examination 425091239 Z00.00 Depression screening 171 481519 Z13.89 Examinatio n of blood pressure 702705399 Z01.30 Diet education 57280372 Z71.3 Counseling 595118514 Z71 .82 Exercise counseling . Patient encouraged to exercise 30 minutes 5 days a week. Gynecologi c examination 97153514 Z01.419 Diabetes mellitus 751682 09 E11.9 Body mass index 30+ - obesity 293091260 Z68.39 Administra tion of diphtheria, pertussis, and tetanus vaccine 030455951 Z23 Active or passive immunization 832665221 Z23 [id number] Paola Hyde APRN [place] [address] [address] Armando DIANA [facility] [place] [address] 10/20/2017 13:07:14 10/20/2017 13:58:05 Acute bronchitis 27524405 J20.9 Cough 52165651 R05 [id number] [facility] [address] [place] [address] 10/26/2017 14:37:16 10/26/2017 15:17:01 Upper respiratory infection 15051790 J06.9 discussed that this is likely viral and will need to run its course; given copd history will tx with augmentin (completes a course of levaquin) and a steroid course. [id number] SHARDA Carpenter [facility] [address] [place] [address] 11/26/2017 10:21:57 11/26/2017 13:13:20 History of surgical procedure on mouth 692171008 Z98.890 keep scheduled appointmen t with surgeon for follow up [id number] SHARDA Carpenter [place] [address] [address] [place] [address] 02/08/2018 08:01:56 02/08/2018 09:53:45 Renewal of prescription 041044593 Z76.0 Essential hypertension 37512851 I10 Diabetes mellitus 743505 09 E11.9 Type 2 munira betes mellitus without complication 319161452 E11.9 Eruption 269394404 R21 Anxiety 61107329 F41.9 Active or passive immunization 372904041 Z23 Nicotine dependence 5629 4008 F17.200 Pain of joint 82888334 M 25.50 [id number] SHARDA Carpenter [facility] [address] [place] [address] 02/18/2018 09:09:57 02/18/2018 11:17:23 Nausea 600161438 R11.0 discontinu e zoloft, bland diet, rtc in one week to consider new medication for anxiety. rtc sooner if symptoms worsen. [id number] SHARDA Carpenter [place] [address] [address] [place] [address] 04/06/2018 11:22:42 04/06/2018 12:24:21 Anxiety 84770990 F41.9 [id number] Paola Hyde APRN [place] [address] [place] [address] 06/03/2018 12:48:10 06/03/2018 13:42:22 Tobacco dependence syndrome 59533409 F17.200 Osteoarthritis 680990106 M19.90 Vitamin D deficiency 347 99707 E55.9 Disorder o f vitamin B12 546086488 E53.8 Acute bronchitis 2472086 2 J20.9 [id number] Paola Hyde APRN [place] [address] [address] Arm[place] DIANA [facility] [place] [address] 06/17/2018 09:43:02 06/17/2018 10:40:32 Active or passive immunization 219632650 Z23 Tobacco de pendence syndrome 70499202 F17.199 [id number] Paola Hyde APRN [place] [address] [address] Armando DIANA [facility] [place] [address] 08/09/2018 08:44:18 08/09/2018 09:59:01 Type 2 diabetes mellitus 58276877 E11.37X1 Type 2 munira betes mellitus without complication 083886592 E11.9 Pain of joint 50789491 M 25.50 [id number] Paola Hyde APRN [place] [address] [address] [address] 09/03/2018 09:21:00 09/03/2018 10:32:58 Active or passive immunization 912948701 Z23 Type 2 munira betes mellitus 10959548 E11.37X1 Vitamin D deficiency 347 60666 E55.9 Neuropathy 872554832 G62 .9 [id number] Paola Hyde APRN [place] [address] [address]RAUN [facility] [place] [address] 12/24/2018 08:21:01 12/24/2018 09:44:40 Pain in left arm 868948592 M79.602 Type 2 munira betes mellitus 28506687 E11.37X1 Acute exac erbation of chronic obstructive pulmonary disease 301487871 J44.1 [id number] SHARDA Carpenter [facility] [address] [place] [address] 01/27/2019 14:10:48 01/27/2019 15:17:24 Disorder of vitamin B12 411971567 E53.8 Renewal of prescription 917666822 Z76.0 Diabetes mellitus 851293 09 E11.9 Pain of [facility] 13146798 M25.519 Long-term drug therapy 741550115 Z79.899 Shoulder joint pain 2679 49361 M25.519 Pain in left arm 6185734 00 M79.575 [id number] SHARDA Carpentergraceangela [place] [address] [address] Armando DIANA [facility] [place] [address] 02/11/2019 10:05:35 02/11/2019 12:42:20 Osteoarthritis 593479124 M19.90 Administra tion of influenza vaccine 17781796 Z23 Pain of [place] region 54831298 M25.966 [id number] SHARDA Carpentergraceangela [place] [address] [address] [place] [address] 03/31/2019 09:00:10 03/31/2019 10:23:19 Type 2 diabetes mellitus 16688629 E11.37X1 Renewal of prescription 615324691 Z76.0 Pain of [facility] 15416228 M25.519 Disorder o f vitamin B12 914155924 E53.8 Neuropathy 940600199 G62 .9 [id number] SHARDA Carpentermiguelangela [place] [address] [address] Armando DIANA [facility] [place] [address] 05/09/2019 14:33:37 05/09/2019 15:41:47 Bronchitis 12683372 J40 rtc as needed [id number] Paola Hyde APRN Nellyangela [place] [address] [address] Arm[place] DIANA [facility] [place] [address] 07/01/2019 08:49:24 07/01/2019 10:21:21 Type 2 diabetes mellitus 38143384 E11.37X1 Sinusitis 07834495 J32.9 Bronchitis 09247708 J40 rtc as needed Neuropathy 846263953 G62 .9 Renewal of prescription 318308310 Z76.0 Cough 63565848 R05 [id number] SHARDA Carpenter Counts Include [address] [facility] [address] [place] [address] 09/29/2019 08:45:47 09/29/2019 09:20:29 Type 2 diabetes mellitus 57993096 E11.37X1 Renewal of prescription 138804285 Z76.0 Osteoarthritis 992896262 M19.90 Nausea 415982779 R11.0 discontinu e zoloft, bland diet, rtc in one week to consider new medication for anxiety. rtc sooner if symptoms worsen. Neuropathy 217613701 G62 .9 [id number] SHARDA Carpenter Counts Include [address] [facility] [address] [place] [address] 01/03/2020 08:05:23 01/03/2020 09:16:59 Type 2 diabetes mellitus 63656739 E11.37X1 Body mass index 30+ - obesity 845490151 Z68.39 Renewal of prescription 929590400 Z76.0 Candidiasis of vagina 72 146392 B37.3 Long-term drug therapy 879962517 Z79.899 Neuropathy 826354526 G62 .9 [id number] SHARDA Baets Counts Include [address] [facility] [address] [place] [address] 02/14/2020 14:42:27 02/14/2020 14:57:25 Administration of influenza vaccine 00363468 Z23 [id number] SHARDA Carpenter [facility] [address] [place] [address] 04/09/2020 08:30:50 04/09/2020 10:05:41 General examination of patient 766876832 Z00.00 Screening for cardiovascular system disease 316714403 Z13.6 Screening mammography 24 532874 Z12.31 Exercises education, guidance, and counseling 868617980 Z71.82 Dietary ma nagement surveillance 092194581 Z71.3 Type 2 munira betes mellitus 19661871 E11.37X1 Hyperlipidemia 48393078 E78.5 Renewal of prescription 541466542 Z76.0 Cough 31030696 R05 [id number] SHARDA Carpenter [place] [address] [address] Armando DIANA [facility] [place] [address] 08/27/2020 08:33:56 08/27/2020 09:30:32 Type 2 diabetes mellitus 34119409 E11.37X1 will call with results Essential hypertension 56259164 I10 controlled with medication s, will call with results Hyperlipidemia 63637601 E78.5 controlled with medication , will call with results Osteoarthritis 921678144 M19.90 controlled with medication , will call with results Chronic ob structive pulmonary disease 94630994 J44.9 controlled with medicaton Gastroesop hageal reflux disease 265377917 K21.9 controlled with medication Arthritis 5113906 M19.90 controlled with medication [id number] SHARDA Carpenter [place] [address] [address] Armando NELLYAngela [facility] [place] [address] 09/28/2020 08:42:12 09/28/2020 09:21:40 Osteoarthritis 317161476 M19.90 controlled with medication Type 2 munira betes mellitus 23844556 E11.37X1 stable [id number] SHARDA Carpenter [place] [address] [address] Armando DIANA [facility] [place] [address] 11/26/2020 08:03:44 11/26/2020 09:06:48 Type 2 diabetes mellitus 44702836 E11.37X1 stable Nausea 990173385 R11.0 requests refills for episodes of nausea Renewal of prescription 484884194 Z76.0 requests refills Hyperlipidemia 04107294 E78.5 controlled with medication , will call with results Essential hypertension 62056658 I10 controlled with medication s, will call with results Gastroesop hageal reflux disease 250714132 K21.9 controlled with medication Chronic ob structive pulmonary disease 29858036 J44.9 controlled with medicaton Nicotine dependence 5629 4008 F17.200 discussed importance of not smoking Hepatitis C screening 41 1858525 Z11.59 screening Screening mammography 24 718823 Z12.31 screening Screening for malignant neoplasm of colon 117456052 Z12.11 declined workup today. [id number] Paola Hyde APRN Ethelsamia [place] [address] [address] Armando DIANA [facility] [place] [address] 12/03/2020 08:41:57 12/03/2020 09:27:36 Acute bronchitis 60827332 J20.9 Cough 11720311 R05 do not take gabapentin while on promethazi ne DM [id number] Paoal Hyde APRN Nellyangela [place] [address] [address] [address] 01/18/2021 15:42:39 01/18/2021 16:57:54 Chronic obstructive pulmonary disease 43306687 J44.9 Acute exac erbation of chronic obstructive pulmonary disease 542310267 J44.1 [id number] Paola Hyde APRN Nellyangela [place] [address] [address] Armando DIANA [facility] [place] [address] 01/28/2021 08:55:15 01/28/2021 11:47:26 Acute bronchitis 81540365 J20.9 declined xray today, seek urgent care if symptoms worsen Osteoarthritis 439144396 M19.90 controlled with medication [id number] SHARDA Reed [place] [address] [address] Armando DIANA [facility] [place] [address] 02/27/2021 07:44:06 02/27/2021 08:38:17 Type 2 diabetes mellitus 44894552 E11.9 chronic controlled Body mass index 30+ - obesity 852562652 Z68.33 Essential hypertension 09163413 I10 chronic controlled Vitamin D deficiency 347 12876 E55.9 chronic controlled Cobalamin deficiency 190 237351 E53.8 chronic controlled Gastroesop hageal reflux disease 916120583 K21.9 chronic controlled [id number] Evangelina Nguyen APRN Ethelsamia [place] [address] [address] Armando NELLYAngela [facility] [place] [address] 03/01/2021 08:40:39 03/01/2021 10:03:09 Viral screening 713353566 Z11.52 Acute bronchitis 2521249 2 J20.9 [id number] Evangelina Nguyen APRN Kandicealejandra [facility] [address] [place] [address] 03/13/2021 09:44:46 03/13/2021 10:03:27 Administration of influenza vaccine 75145786 Z23 Body mass index 30+ - obesity 220627357 Z68.33 Type 2 munira betes mellitus 83377780 E11.9 chronic uncontroll ed [id number] Evangelina Nguyen APRN Nellyangela [facility] [address] [place], [place] [address] 06/17/2021 09:49:08 06/17/2021 10:17:14 Type 2 diabetes mellitus 74493782 E11.9 chronic uncontroll ed Essential hypertension 93526980 I10 chronic controlled Hyperlipidemia 11313121 E78.5 chronic controlled [id number] SHARDA Reedgraceangela [facility] [address] Armando DIANA [facility] [place] [address] 09/13/2021 08:28:03 09/13/2021 09:43:19 Type 2 diabetes mellitus 44647275 E11.9 chronic uncontroll ed Essential hypertension 11123742 I10 chronic controlled Gastroesop hageal reflux disease 487639057 K21.9 chronic controlled Hyperlipidemia 39546698 E78.5 chronic controlled Cobalamin deficiency 190 634424 E53.8 chronic controlled Chronic back pain 468336 002 M54.9 chronic, worsening at times, panchito reviewed appropriat e Postmenopa usal bleeding 21383787 N95.0 been going on for about a year, also reports capps with intercours e [id number] SHARDA Enriquez [facility] [address] Armando LEARYMiguelAngela [facility] [place] [address] 09/25/2021 15:18:40 09/25/2021 16:35:21 Postmenopausal bleeding 85108215 N95.0 Essential hypertension 53897174 I10 Type 2 munira betes mellitus 67466528 E11.9 Body mass index 30+ - obesity 924288638 Z68.33 Postcoital bleeding 4888 0000 N93.0 [id number] SHARDA Enriquez [employer] [address] [place] [address] 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 [employer] [address] [place] [address] [place] [address] 12/02/2021 10:38:57 12/02/2021 11:40:06 Abnormal cytology findings 348720889 R89.6 Screening for malignant neoplasm of cervix 932489448 Z12.4 [id number] SHARDA Enriquez [facility] [address] [place] [address] 12/18/2021 15:46:58 12/18/2021 17:05:35 Routine gynecologic examination done 2196315404 9101 Z01.419 Examinatio n of blood pressure 839254432 Z01.30 BP goal < 140/90 Depression screening 171 396945 Z13.31 Diet education 85593621 Z71.3 2556-4667 calorie diet recommende d with an emphasis on reducing sugar and refined carbohydra carolyn, avoiding highly processed foods and decreasing saturated fats. She declines dietary consult. Counseling 390952216 Z71 .82 Exercise counsellin dimitris. Patient encouraged to exercise 30 minutes 5 days a week. Screening for malignant neoplasm of breast 075092657 Z12.31 Scheduled for 12-23-21 Screening for malignant neoplasm of colon 668928281 Z12.11 declines Screening for malignant neoplasm of respiratory tract 750199563 Z12.2 Body mass index 30+ - obesity 608073837 Z68.32 Cigarette smoker 6737592 7 F17.210 Tobacco use discourage d. Techniques for quitting smoking discussed including pharmaceut icals (Nicotine patches, gum, Zyban, and Chantix) and behavioral therapy (Rob Escobedo). Immediate and halfway cardiovasc ular and respirator y benefits of smoking cessation discussed. Lung cancer risk reduction also discussed. Chronic ob structive pulmonary disease 22343347 J44.9 Essential hypertension 58443966 I10 Type 2 munira betes mellitus 20687090 E11.65 History of tubal ligation 375266517 Z98.51 Health Concerns Section Related Observation LastModified by Organization Detai ls LastModified Time None Recorded Concern Status LastModified by Organization Details LastModified Time None Recorded Advance Directives Directive N: Payers Insurance Date Sequence Insurance Name Policy Number Policy Hutson Covered Member ID Hutson Member ID Guarantor Name 02/18/2017 1 PASSPORT BY [employer]. (MEDICAID REPLACEMENT - HMO) Teresa Rivera [id number] Teresa Rivera 01/25/2022 1 [place] [id number] Teresa Rivera [id number] Teresa Rivera 01/25/2022 [place] Teresa Rivera [id number] Teresa Rivera 07/15/2016 1 UNSPECIFIED REMIT PAYOR Teresa Rivera 06/03/2018 1 PASSPORT BY [employer] (MEDICAID REPLACEMENT - HMO) MEDICAID Teresa Rivera [id number] Teresa Rivera Notes Date Note Type Note Provider Name and Address Organization Details Recorded Time 09/13/2021 text/html Diabetes F/URepo rted bypatient.Review finger sticks:Doesn't check Labs:last A1C result: 7.1 Context:not missing doses of medications; no side effects from medications Evangelina Nguyen, SHARDA [address], [place], [address], [facility] - [facility] 09/13/2021 10:53:24 09/25/2021 text/html [...] Wilma Ocampo APRN [address], [place], [address], [place] - [facility] 09/26/2021 19:54:45 10/21/2021 text/html Teresa is here t o discuss ultrasound done to follow up on PMB. Wilma Ocampo APRN [address], [place], [address], [facility] - [facility] 10/21/2021 11:09:36 12/02/2021 text/html Patient in for colposcopy/biopsy. Patient denies any other symptoms. Wilma Ocampo APRN [address], [place], [address], [facility] - [facility] 12/02/2021 12:55:37 12/18/2021 text/html [...] and high risk HPV typing;Needs to schedule mammogram([facility] 12-23-2021); Up to date on colonoscopy screening; All immunization are current The patient is a 61 year old naturally postmenopausal White female who presents as a/an established patient for annual gynecologic wellness exam. She denies gynecologic concerns. See above notations for significant gynecologic history of present illness as reported per patient during visit intake. Wilma Ocampo APRN [address], [place], [address], [place] - [facility] 12/19/2021 19:22:15 OBGyn Episode No OBEpisode recorded.
--- OUTSIDE RECORDS SUMMARY | 2024-11-25 15:47 | XMS_ITS | Encounter Summary ---
Author Organization Healthcare Address [address] [place] [address] Care Team Providers Care Extract Wringer Name Role Phone Laurie Gutierrez MD Primary Care Provider [phone] Joshua Martínez MD Unavailable Reason for Visit * Reason Comments Distress Screen Follow-up Encounter Details Date Type Department Care Team (Late st Contact Info) Description 11/08/2024 Social Work Psych Oncology [address] [place] [address] Mariah Rowley Social History Tobacco Use Types [...] in the past 12 m [facility], were you homeless or living in [...] in the past 12 m [facility], were you homeless or living in [...] first t laurie in the morning (EYE-BATTERY WRECKER OPERATOR) to steady your nerves or to get rid of a hangover? 0 10/27/2024 CAGE Questionnaire Score 0 025 Utilities Answer Date Recorded In the past 12 months has th e [employer], gas, oil, or water company threatened to [...] Person Disease Status: Established Patient Clinic Location: [facility] Disease Type: Lung & Bronchus Services Provided: Gift / Gas Card Gift Card Type: ACS Transportation Talat Gift Card Amount: 50 Education Provided: Lodging Intervention Level: 2 Units (1 unit = 15 minutes): 2 Narrative: LOAN CLOSER met with pt and sister prior to appt to follow up on DT screen. LOAN CLOSER introduced self and non urgent nature of visit. Pt stated she is doing okay but both asked about upcoming radiation treatments and whether or not those would be extended. LOAN CLOSER explained that pt's radiation will not be extended but that LOAN CLOSER had spoken to pt's care team and pt is due to return on 11/29-12/01 for more infusions. Pt asked about staying at [facility] and LOAN CLOSER encouraged pt to reach out to [facility] to complete a self referral which pt agreeable to doing. Pt also asked about possible fuel and utility assistance.LOAN CLOSER explained [address] and stated that pt would just need to bring in the bills she is wantingpaid. LOAN CLOSER also explained that LOAN CLOSER could bring over some ACS cards to pt in infusion. LOAN CLOSER encouragedboth to reach out should any further needs arise or should they have issues when making a self referral to the [facility]. Both voiced understanding and appreciation for the assistance. No further needs identified. LOAN CLOSER to remain available for any ongoing needs or support. LOAN CLOSER met with pt while in infusion to provide pt with 50.00 in ACS cards. NAVEED Ashley, LOAN CLOSER [facility] Psych-Oncology [facility] documented in this encounter Plan of Treatment Upcoming Encounters Date Type Department Care Team (Late st Contact Info) Description 11/29/2024 10:30 AM EDT Clinical Support [facility] Res[facility] [address] [facility], 2nd [place] [address] 11/29/2024 11:00 AM EDT Office Visit [facility] Res[facility] [address] [facility], 2nd [place] [address] Satnam Colvin MD [address] [facility] [address] [place] [address] 11/29/2024 12:30 PM EDT Appointment [facility] 1 [address] [place] [address] 11/30/2024 1:30 PM EDT Appointment [facility] 1 [address] [place] [address] 12/01/2024 2:00 PM EDT Appointment [facility] 1 [address] [place] [address] 12/06/2024 11:40 AM EDT Appointment [facility] CC Radiation [address] [facility]. [id number] [place] [address] Haven Blum, ADVERTISING TRAFFIC MANAGER [address] [facility] [address] [place] [address] 01/19/2025 9:30 AM EDT Appointment P[facility] S Radiology [address], 1st [place] [address] 01/19/2025 10:45 AM EDT Office Visit [facility] [address], 1st [place] [address] Abhilash Bangura MD [address] [place] [address] 03/08/2025 1:00 PM EDT Office Visit [facility] [place] Wenceslao 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, SEA FOAM KISS MAKER Panic 10/26/2024 10/31/2024 Assessment Noted Time PHQ-9 Depression Total Score: 0 09/01/19 25 3:26 PM EDT A fall risk assessment has been complete d for the patient 11/08/2024 2:02 PM EDT A Body Mass Index follow-up plan has been documented for the patient 11/08/2024 5:14 PM EDT documented as of this encounter Care Teams Extract Wringer Relationship Specialty Start Date End Date Laurie Gutierrez MD [address] [place] [address] PCP - General 12/09/23 Joshua Martínez MD [address] [place], [place] [address]D [place] [address] Consulting Physician Radiation Oncology 09/19/24 documented as of this encounter
--- OUTSIDE RECORDS SUMMARY | 2024-11-25 15:48 | XMS_ITS | Encounter Summary ---
Author Organization Healthcare Address [address] [place] [address] Care Team Providers Care Charter Boat Captain Name Role Phone Laurie Gutierrez MD Primary Care Provider [phone] Joshua Martínez MD Unavailable Encounter Details Date Type Department Care Team (Late st Contact Info) Description 11/04/2024 Orders Only [facility] CC Radiation [id number] [place] [address] Radiation Oncology, Physician, [facility] [place] [address] Social History Tobacco Use Types Packs/Day Years [...] drink first t laurie in the morning (EYE-TRANSCRIPTIONIST) to steady your nerves or to get [...] [facility] Res[facility] [address] [address] 11/29/2024 11:00 AM EDT Office Visit [facility] [address] [address] Satnam Colvin MD [address] [facility] [address] [place] [address] 11/29/2024 12:30 PM EDT Appointment [facility] 1 [address] [place] [address] 11/30/2024 1:30 PM EDT Appointment [facility] 1 [address] [place] [address] 12/01/2024 2:00 PM EDT Appointment [facility] [address] [place] [address] 12/06/2024 11:40 AM EDT Appointment [facility] CC Radiation [id number] [place] [address] Haven Blum, CATEGORY ANALYST [address] [place] [address] 01/19/2025 9:30 AM EDT Appointment [facility] S Radiology [address], [address] [place] [address] 01/19/2025 10:45 AM EDT Office Visit [place] [facility] [address], [address]st [place] [address] Abhilash Bangura MD [address] [place] [address] 03/08/2025 1:00 PM EDT Office Visit [facility] [place] Wenceslao 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, MOTOR VEHICLES SUPERVISOR Panic 10/26/2024 10/31/2024 Assessment Noted Time PHQ-9 Depression Total Score: 0 09/01/19 3:26 PM EDT A fall risk assessment has been complete d for the patient 10/06/2024 2:29 PM EDT A Body Mass Index follow-up plan has been documented for the patient 10/31/2024 4:09 PM EDT documented as of this encounter Care Teams Charter Boat Captain Relationship Specialty Start Date End Date Laurie Gutierrez MD [address] [place] [address] PCP - General 12/09/23 Joshua Martínez MD [address] [place] [address] Consulting Physician Radiation Oncology 09/19/24 documented as of this encounter
--- OUTSIDE RECORDS SUMMARY | 2024-11-25 15:48 | XMS_ITS | Encounter Summary ---
Author Organization Healthcare Address [address] [place] [address] Care Team Providers Care Cisco Certified Internetwork Expert Name Role Phone Laurie Gutierrez MD Primary Care Provider [phone] Joshua Martínez MD Unavailable Paradise Pacheco RN Unavailable Unavailab le Encounter Details Date Type Department Care Team (Late st Contact Info) Description 11/15/2024 Orders Only External Location [address] [place] [address] Provider, External Social History Tobacco Use Types [...] in the past 12 m [facility], were you homeless or living [...] in the past 12 m [facility], were you homeless or living [...] drink first t laurie in the morning (EYE-TELEPHONE DIAPHRAGM ASSEMBLER) to steady your nerves or to get rid of a hangover? 0 10/27/2024 CAGE Questionnaire Score 0 025 Utilities Answer Date Recorded In the past 12 months has e [employer], gas, oil, or water [employer] threatened to shut off services in your [...] & Respiratory [address] [facility], [address]nd [place] [address] 11/29/2024 11:00 AM EDT Office Visit Pav [facility] Head[facility] Neck [facility] Respiratory [address] [facility], [address]nd [place] [address] Satnam Colvin MD [address] [facility] [address] [place] [address] 11/29/2024 12:30 PM EDT Appointment [facility] 1 [address] [place] [address] 11/30/2024 1:30 PM EDT Appointment [facility] 1 [address] [place] [address] 12/01/2024 2:00 PM EDT Appointment [facility] 1 [address] [place] [address] 12/06/2024 11:40 AM EDT Appointment [facility] CC Radiation [address] [facility]. [address] [place] [address] Haven Blum, CUSTOMS APPRAISER [address] [facility] [address] [place] [address] 01/19/2025 9:30 AM EDT Appointment P[facility] S Radiology [address], [address] [place] [address] 01/19/2025 10:45 AM EDT Office Visit [place] [facility] [address], [address] [place] [address] Abhilash Bangura MD [address] [place] [address] 03/08/2025 1:00 PM EDT Office Visit [facility] [place] Wenceslao 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, COLLECTIONS TECHNICIAN Panic 10/26/2024 10/31/2024 Assessment Noted Time PHQ-9 Depression Total Score: 0 09/01/19 3:26 PM EDT A fall risk assessment has been complete d for the patient 11/10/2024 2:43 PM EDT A Body Mass Index follow-up plan has been documented for the patient 11/08/2024 5:14 PM EDT documented as of this encounter Care Teams Cisco Certified Internetwork Expert Relationship Specialty Start Date End Date Laurie Gutierrez MD [address] [place] [address] PCP - General 12/09/23 Joshua Martínez MD [address] [phone] Consulting Physician Radiation Oncology 09/19/24 Paradise Pacheco, RN CH-VASCULAR & INTERVENTIONAL RADIOLOGY Registered Nurse 11/21/24 11/21/24 documented as of this encounter
--- OUTSIDE RECORDS SUMMARY | 2024-11-25 15:48 | XMS_ITS | Encounter Summary ---
Author Organization Healthcare Address [address] [place] [address] Care Team Providers Care Experience Planning Strategist Name Role Phone Laurie Gutierrez MD Primary Care Provider [phone] Joshua Martínez MD Unavailable Encounter Details Date [...] drink first t laurie in the morning (EYE-PANEL BEATER) to steady your nerves or to get rid of a hangover? 0 10/27/2024 CAGE Questionnaire Score 0 025 Utilities Answer Date Recorded In the past 12 months has [employer], gas, oil, or water company threatened to shut off services in your home? No 10/26/2024 Comments No Sex and Gender Information Value Date Recorded Sex Assigned at Not on file Legal Sex Female 8:32 PM EDT Gender Identity Not on file Sexual Orientation Not on file documented as of this encounter Plan of Treatment Upcoming Encounters Date Type Department Care Team ([facility] Contact Info) Description 11/29/2024 10:30 AM EDT Clinical Support Pav [facility] Head[facility] Neck & Respiratory [address] [facility], 2nd [place] [address] 11/29/2024 11:00 AM EDT Office Visit Pav CC Head, Neck & Respiratory [address] [facility], 2nd [place] [address] Satnam Colvin MD [address] [facility] N[address] [facility] [address] [place] [address] 11/29/2024 12:30 PM EDT Appointment [facility] 1 [address] [place] [address] 11/30/2024 1:30 PM EDT Appointment [facility] 1 [address] [place] [address] 12/01/2024 2:00 PM EDT Appointment [facility] [address] [place] [address] 12/06/2024 11:40 AM EDT Appointment [facility] CC Radiation [address] [place] [address] Haven Blum, FLOTATION TENDER [address] [place] [address] 01/19/2025 9:30 AM EDT Appointment [facility] S Radiology [address], [address] [place] [address] 01/19/2025 10:45 AM EDT Office Visit [place] [facility] [address], [address] [place] [address] Abhilash Bangura MD [address] [place] [address] 03/08/2025 1:00 PM EDT Office Visit [facility] [place] Wenceslao 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, OPTICAL INSTRUMENT REPAIRER Panic 10/26/2024 10/31/2024 Assessment Noted Time PHQ-9 Depression Total Score: 0 09/01/19 25 3:26 PM EDT A fall risk assessment has been complete d for the patient 10/06/2024 2:29 PM EDT A Body Mass Index follow-up plan has been documented for the patient 10/31/2024 4:09 PM EDT documented as of this encounter Care Teams Experience Planning Strategist Relationship Specialty Start Date End Date Laurie Gutierrez MD [address] [place] [address] PCP - General 12/09/23 Joshua Martínez MD [address] [place], [place] [address] [place] [address] Consulting Physician Radiation Oncology 09/19/24 documented as of this encounter
--- OUTSIDE RECORDS SUMMARY | 2024-11-25 15:48 | XMS_ITS | Encounter Summary ---
Author Organization Healthcare Address [address] [place] [address] Care Team Providers Care Director Of Integrated Marketing Name Role Phone Laurie Gutierrez MD Primary Care Provider [phone] Joshua Martínez MD Unavailable Paradise Pacheco RN Unavailable Unavailab le Encounter Details Date Type Department Care Team (Late st Contact Info) Description 11/15/2024 Orders Only External Location [address] [place] [address] Regina Katz D, METAL MOVER [address] [place] [address] Social History Tobacco Use Types [...] any time in the past 12 m [facility], were you homeless or living [...] any time in the past 12 m [facility], were you homeless or living [...] drink first t laurie in the morning (EYE-PADDING GLUER) to steady your nerves or to get [...] Respiratory 800 [facility], 2nd [place] [address] 11/29/2024 11:00 AM EDT Office Visit [facility] Head, Neck & Respiratory [address] [facility], 2nd [place] [address] Satnam Colvin MD 800 [facility] [address] [place] [address] 11/29/2024 12:30 PM EDT Appointment [facility] 1 [address] [place] [address] 11/30/2024 1:30 PM EDT Appointment [facility] 1 [address] [place] [address] 12/01/2024 2:00 PM EDT Appointment [facility] 1 [address] [place] [address] 12/06/2024 11:40 AM EDT Appointment [facility] CC Radiation [address] [facility]. [id number] [place] [address] Haven Blum, METAL MOVER [address] [facility] [address] [place] [address] 01/19/2025 9:30 AM EDT Appointment [facility] S Radiology [address], 1st [place] [address] 01/19/2025 10:45 AM EDT Office Visit [place] [facility] [address], 1st [place] [address] Abhilash Bangura MD [address] [place] [address] 03/08/2025 1:00 PM EDT Office Visit [facility] [place] [facility] 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, [facility]PC Panic 10/26/2024 10/31/2024 Assessment Noted Time PHQ-9 Depression Total Score: 0 09/01/19 3:26 PM EDT A fall risk assessment has been complete d for the patient 11/10/2024 2:43 PM EDT A Body Mass Index follow-up plan has been documented for the patient 11/08/2024 5:14 PM EDT documented as of this encounter Care Teams Director Of Integrated Marketing Relationship Specialty Start Date End Date Laurie Gutierrez MD [address] [place] [address] PCP - General 12/09/23 Joshua Martínez MD [address] [place] [address] Consulting Physician Radiation Oncology 09/19/24 Paradise Pacheco, RN CH-VASCULAR & INTERVENTIONAL RADIOLOGY Registered Nurse 11/21/24 11/21/24 documented as of this encounter
--- OUTSIDE RECORDS SUMMARY | 2024-11-25 15:48 | XMS_ITS | Encounter Summary ---
Author Organization Healthcare Address [address] [place] [address] Care Team Providers Care Water Meter Mechanic Name Role Phone Laurie Gutierrez MD Primary Care Provider [phone] Joshua Martínez MD Unavailable Paradise Pacheco RN Unavailable Unavailab le Encounter Details Date Type Department Care Team (Late st Contact Info) Description 11/15/2024 Orders Only External Location [address] [place] [address] Provider, External Social History Tobacco Use Types [...] drink first t laurie in the morning (EYE-WORLDWIDE CHIEF CREATIVE OFFICER) to steady your nerves or to get rid of a hangover? 0 10/27/2024 CAGE Questionnaire Score 0 025 Utilities Answer Date Recorded In the past 12 months has e [employer], gas, oil, or water [employer] threatened to shut off services in your [...] Pav CC Head, Neck & Respiratory 800 [facility], 2nd [place] [address] 11/29/2024 11:00 AM EDT Office Visit [facility] Head, Neck & Respiratory 800 [facility], 2nd [place] [address] Satnam Colvin MD 800 [facility] [address] [place] [address] 11/29/2024 12:30 PM EDT Appointment [facility] 1 [address] [place] [address] 11/30/2024 1:30 PM EDT Appointment [facility] 1 [address] [place] [address] 12/01/2024 2:00 PM EDT Appointment [facility] 1 [address] [place] [address] 12/06/2024 11:40 AM EDT Appointment [facility] CC Radiation [address] [facility]. [id number] [place] [address] Hvaen Blum, TOOL SPECIALIST 800 [facility] [address] [place] [address] 01/19/2025 9:30 AM EDT Appointment [facility] S Radiology [address], 1st [place] [address] 01/19/2025 10:45 AM EDT Office Visit [place] [facility] [address], 1st [place] [address] Abhilash Bangura MD [address] [place] [address] 03/08/2025 1:00 PM EDT Office Visit [facility] [place] [facility] 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, INFORMATION TECHNOLOGY ARCHITECT Panic 10/26/2024 10/31/2024 Assessment Noted Time PHQ-9 Depression Total Score: 0 09/01/19 3:26 PM EDT A fall risk assessment has been complete d for the patient 11/10/2024 2:43 PM EDT A Body Mass Index follow-up plan has been documented for the patient 11/08/2024 5:14 PM EDT documented as of this encounter Care Teams Water Meter Mechanic Relationship Specialty Start Date End Date Laurie Gutierrez MD [address] [place] [address] PCP - General 12/09/23 Joshua Martínez MD [address] [phone] Consulting Physician Radiation Oncology 09/19/24 Paradise Pacheco, RN CH-VASCULAR & INTERVENTIONAL RADIOLOGY Registered Nurse 11/21/24 11/21/24 documented as of this encounter
--- OUTSIDE RECORDS SUMMARY | 2024-11-25 15:48 | XMS_ITS | Encounter Summary ---
Author Organization [facility] Address [address] [place] [address] Care Team Providers Care Brush Machine Setter Name Role Phone Paola Hyde APRN Primary Care Provider Laurie Gutierrez MD Primary Care Provider [phone] Joshua Martínez MD Unavailable Jasmina Smith PHARMACY CUSTOMER CARE SPECIALIST Unavailable Unavailable Paradise Pacheco RN Unavailable Unavailab Sabine Crowe PHARMACY CUSTOMER CARE SPECIALIST Unavailable Unavailable Encounter Details Date Type Department Care Team (Late Contact Info) Description 07/31/2023 Orders Only External Location [address] [place] [address] Provider, External Social History Tobacco [...] Respiratory 800 [facility], [address]nd [place] [address] 11/29/2024 11:00 AM EDT Office Visit [facility] Head, Neck & Respiratory 800 [facility], [address] [place] [address] Satnam Colvin MD 800 [facility] [address] [place] [address] 11/29/2024 12:30 PM EDT Appointment [facility] 1 [address] [place] [address] 11/30/2024 1:30 PM EDT Appointment [facility] 1 [address] [place] [address] 12/01/2024 2:00 PM EDT Appointment [facility] 1 [address] [place] [address] 12/06/2024 11:40 AM EDT Appointment [facility] CC Radiation 800 [facility]. [id number] [place] [address] Haven Blum, MASTER FIRE CONTROL TECHNICIAN 800 [facility] [address] [place] [address] 01/19/2025 9:30 AM EDT Appointment [facility] S Radiology [address], 1st [place] [address] 01/19/2025 10:45 AM EDT Office Visit [place] [facility] [address], 1st [place] [address] Abhilash Bangura MD [address] [place] [address] 03/08/2025 1:00 PM EDT Office Visit [facility] [place] [facility] [address] [place] [address] Teresita Oconnell MD [address] [place] [address] documented as of this encounter [...] Bacteri al Infection Comment:Pseudomonas aeruginosa MDR, MARINE RESOURCE ECONOMIST Panic 10/26/2024 10/31/2024 documented as of this encounter Care Teams Brush Machine Setter Relationship Specialty Start Date End Date Paola Hyde APRN [address] [place] [address] PCP - General 09/28/20 12/08/23 Laurie Gutierrez MD [address] [place] [address] PCP - General 12/09/23 Joshua Martínez MD [address] [phone] Consulting Physician Radiation Oncology 09/19/24 Jasmina Smith LPN VALUE-[place] [address] TCM Nurse 10/19/24 11/01/24 Paradise Pacheco, RN CH-VASCULAR & INTERVENTIONAL RADIOLOGY Registered Nurse 11/21/24 11/21/24 Sabine Morales LPN TCM Nurse 11/23/24 documented as of this encounter
--- OUTSIDE RECORDS SUMMARY | 2024-11-25 15:48 | XMS_ITS | Encounter Summary ---
Author Organization Healthcare Address [address] [place] [address] Care Team Providers Care Antique Furniture Reproducer Name Role Phone Laurie Gutierrez MD Primary Care Provider Joshua Martínez MD Unavailable Reason for Visit * Reason Comments Resource Navigation Encounter Details Date Type Department Care Team (Late st Contact Info) Description 11/04/2024 Social Work Psych Oncology 800 [place] [address] Mariah Rowley Social History Tobacco Use Types [...] drink first t laurie in the morning (EYE-TELEMEDICINE PHYSICIAN) to steady your nerves or to get rid of a hangover? 0 10/27/2024 CAGE Questionnaire Score 0 025 Utilities Answer Date Recorded In the past 12 months has th [employer], gas, oil, or water company threatened to shut off services in your home? No 10/26/2024 Comments No Sex and Gender Information Value Date Recorded Sex Assigned at Not on file Legal Sex Female 8:32 PM EDT Gender Identity Not on file Sexual Orientation Not on file documented as of this encounter Miscellaneous Notes * Progress Notes - Maraih Rowley - 11/04/2024 9:08 AM EDT Encounter Type: Phone Call Disease Status: Established Patient Clinic Location: [facility] Disease Type: Lung & Bronchus, Brain & Other Nervous System Services Provided: Clinical Navigation Education Provided: Lodging Intervention Level: 2 Units (1 unit = 15 minutes): 1 Narrative: OCULAR CARE TECHNICIAN reached out to pt to discuss the possibility of extending pt's lodging. OCULAR CARE TECHNICIAN informed pt that, after discussing appt dates with pt's care team, that lodging cannot be extended. OCULAR CARE TECHNICIAN informed pt that pt's last rad tx is on 11/07 and last infusion on 11/10 and because of this pt's current stay at cannot be extended. Pt voiced understanding and appreciation for the assistance. No further needs identified. OCULAR CARE TECHNICIAN to remain available for any ongoing needs or support. NAVEED Ashley, OCULAR CARE TECHNICIAN [facility] Psych-Oncology Services documented in this encounter Plan of Treatment Upcoming Encounters Date Type Department Care Team (Late st Contact Info) Description 11/29/2024 10:30 AM EDT Clinical Support Pav CC Head, Neck & Respiratory 800 [facility], 2nd [place] [address] 11/29/2024 11:00 AM EDT Office Visit Pav CC Head, Neck & Respiratory 800 [facility], 2nd [place] [address] Satnam Colvin MD 800 [facility] [address] [place] [address] 11/29/2024 12:30 PM EDT Appointment [facility] 1 [address] [place] [address] 11/30/2024 1:30 PM EDT Appointment [facility] 1 [address] [place] [address] 12/01/2024 2:00 PM EDT Appointment [facility] 1 [address] [place] [address] 12/06/2024 11:40 AM EDT Appointment [facility] CC Radiation 800 [facility]. [id number] [place] [address] Haven Blum, DEEP SEA DIVER 800 [facility] [address] [place] [address] 01/19/2025 9:30 AM EDT Appointment P[facility] S Radiology [address], 1st [place] [address] 01/19/2025 10:45 AM EDT Office Visit [place] [facility] [address], [address]st [place] [address] Abhilash Bangura MD [address] [place] [address] 03/08/2025 1:00 PM EDT Office Visit [facility] [place] 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, GOLF CLUB WEIGHER Panic 10/26/2024 10/31/2024 Assessment Noted Time PHQ-9 Depression Total Score: 0 09/01/19 3:26 PM EDT A fall risk assessment has been complete d for the patient 10/06/2024 2:29 PM EDT A Body Mass Index follow-up plan has been documented for the patient 10/31/2024 4:09 PM EDT documented as of this encounter Care Teams Antique Furniture Reproducer Relationship Specialty Start Date End Date Laurie Gutierrez MD [address] [place] [address] PCP - General 12/09/23 Joshua Martínez MD [address] [place] [address] Consulting Physician Radiation Oncology 09/19/24 documented as of this encounter
--- OUTSIDE RECORDS SUMMARY | 2024-11-25 15:48 | XMS_ITS ---
Author Organization [facility] Address [address] [place] [address] Care Team Providers Care Public Relations Consultant Name Role Phone Laurie Gutierrez MD Primary Care Provider [phone] Joshua Martínez MD Unavailable Sabine Morales LPN Unavailable Unavailable Transitional Care Management Status:Identified (Enrolling) Start date:11/23/2024 Enrollment reason:Identified using hospital discharge data Overview This episode type is for outpatient care managers enrolling patients in the [facility] Transitional Care Management program. Case Team Name Relationship Phone Sabine Morales LPN(Responsible Staff) TCM Nurse Continued Care and Services Coordination
--- OUTSIDE RECORDS SUMMARY | 2024-11-25 15:48 | XMS_ITS | Encounter Summary ---
Author Organization Healthcare Address [address] [place] [address] Care Team Providers Care Frame Wirer Name Role Phone Laurie Gutierrez MD Primary Care Provider [phone] Joshua Martínez MD Unavailable Paradise Pacheco RN Unavailable Unavailab le Encounter Details Date Type Department Care Team (Late st Contact Info) Description 11/15/2024 Orders Only External Location [address] [place] [address] Provider, External Social History Tobacco Use Types [...] drink first t laurie in the morning (EYE-MYSQL DATABASE DEVELOPER) to steady your nerves or to get rid of a hangover? 0 10/27/2024 CAGE Questionnaire Score 0 025 Utilities Answer Date Recorded In the past 12 months has e [employer], gas, oil, or water [employer] threatened to shut off services in your [...] & Respiratory 800 [facility], 2nd [place] [address] 11/29/2024 11:00 AM EDT Office Visit Pav CC Head, Neck & Respiratory 800 [facility], 2nd [place] [address] Satnam Colvin MD 800 [facility] [address] [place] [phone] 11/29/2024 12:30 PM EDT Appointment [facility] 1 [address] [place] [address] 11/30/2024 1:30 PM EDT Appointment [facility] 1 [address] [place] [address] 12/01/2024 2:00 PM EDT Appointment [facility] 1 [address] [place] [address] 12/06/2024 11:40 AM EDT Appointment [facility] CC Radiation [address] [facility]. [id number] [place] [address] Haven Blum, MINING ANALYST [address] [facility] [address] [place] [address] 01/19/2025 9:30 AM EDT Appointment PAV S Radiology [address], [address]st [place] [address] 01/19/2025 10:45 AM EDT Office Visit [place] [facility] [address], [address]st [place] [address] Abhilash Bangura MD [address] [place] [address] 03/08/2025 1:00 PM EDT Office Visit [facility] [place] [facility] 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
--- OUTSIDE RECORDS SUMMARY | 2024-11-25 15:48 | XMS_ITS | Encounter Summary ---
Author Organization Healthcare Address [address] [place] [address] Care Team Providers Care Seat Scooper Machine Name Role Phone Laurie Gutierrez MD Primary Care Provider [phone] Joshua Martínez MD Unavailable Reason for Visit * Reason Comments Resource Navigation Encounter Details Date Type Department Care Team (Late st Contact Info) Description 11/02/2024 Social Work Psych Oncology [address] [place] [address] Mariah Rowley Social History Tobacco Use Types [...] first t laurie in the morning (EYE-WEB FEEDER) to steady your nerves or to get rid of a hangover? 0 10/27/2024 CAGE Questionnaire Score 0 025 Utilities Answer Date Recorded In the past 12 months has th [employer], gas, oil, or water company threatened to [...] Call Disease Status: Established Patient Clinic Location: [facility] [place] Disease Type: Lung & Bronchus, Brain & Other Nervous System Services Provided: Clinical Navigation Education Provided: Lodging Intervention Level: 3 Units (1 unit = 15 minutes): 2 Narrative: MONEY MARKET CLERK received phone call from pt asking about having lodging extended for upcoming tx. Pt currently staying at through 11/10 as arranged by inpatient CM prior to dc. Per pt's sister, pt's tx is to be extended. CM attempted to explain that pt's appts only go until 11/10 but pt's sister adamant that pt will be going for several more treatments. MONEY MARKET CLERK explained that there is a different scheduling system for radiation appts and that MONEY MARKET CLERK would need to reach out to rad med team in order to clarify new appt dates before setting up any new lodging. Pt's sister agreeable to receiving phone call once clarification received. MONEY MARKET CLERK currently waiting to hear back from care team about whether or not pt's appts being extended past 11/10. No further needs identified. MONEY MARKET CLERK to remain available for any ongoing needs or support. Mariah Rowley, MOLDER OPERATOR, MONEY MARKET CLERK [facility] Psych-Oncology Services documented in this encounter Plan of Treatment Upcoming Encounters Date Type Department Care Team (Late st Contact Info) Description 11/29/2024 10:30 AM EDT Clinical Support Pav CC Head, Neck & Respiratory 800 [facility], 2nd [place] [address] 11/29/2024 11:00 AM EDT Office Visit Pav CC Head, Neck & Respiratory 800 [facility], [address] [place] [address] Satnam Colvin MD 800 [facility] [address] [facility] [address] [place] [address] 11/29/2024 12:30 PM EDT Appointment [facility] 1 [address] [place] [address] 11/30/2024 1:30 PM EDT Appointment [facility] 1 [address] [place] [address] 12/01/2024 2:00 PM EDT Appointment [facility] 1 [address] [place] [address] 12/06/2024 11:40 AM EDT Appointment [facility] CC Radiation 800 [facility]. [id number] [place] [address] Haven Blum, BUILDING MAINTENANCE WORKER 800 [facility] [address] [place] [address] 01/19/2025 9:30 AM EDT Appointment PAV S Radiology [address], [address]st [place] [address] 01/19/2025 10:45 AM EDT Office Visit [place] [facility] [address], 1st [place] [address] Abhilash Bangura MD [address] [place] [address] 03/08/2025 1:00 PM EDT Office Visit [facility] [place] W[facility]o 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, ELECTROCHEMIST Panic 10/26/2024 10/31/2024 Assessment Noted Time PHQ-9 Depression Total Score: 0 09/01/19 25 3:26 PM EDT A fall risk assessment has been complete d for the patient 10/06/2024 2:29 PM EDT A Body Mass Index follow-up plan has been documented for the patient 10/31/2024 4:09 PM EDT documented as of this encounter Care Teams Seat Scooper Machine Relationship Specialty Start Date End Date Laurie Gutierrez MD [address] [place] [address] PCP - General 12/09/23 Joshua Martínez MD [address] [place] [address] Consulting Physician Radiation Oncology 09/19/24 documented as of this encounter
--- OUTSIDE RECORDS SUMMARY | 2024-11-25 15:48 | XMS_ITS ---
Author Organization [facility] Address [address] [place] [address] Care Team Providers Care Meal Cooker Name Role Phone Laurie Gutierrez MD Primary Care Provider [phone] Joshua Martínez MD Unavailable Sabine Morales LPN Unavailable Unavailable LINK Program Status:Closed (Closed) Start date:11/21/2024 Enrollment date:11/21/2024 End date:11/21/2024 Close reason:Not Eligible Overview Patient identified for LINK program. Program was closed at the time of review. Following chart review, patient determined to be ineligible based on program criteria. Continued Care and Services Coordination
--- OUTSIDE RECORDS SUMMARY | 2024-11-25 15:48 | XMS_ITS | Encounter Summary ---
Author Organization Healthcare Address [address] [place] [address] Care Team Providers Care Coin Purse Framer Name Role Phone Laurie Gutierrez MD Primary Care Provider [phone] Joshua Martínez MD Unavailable Jasmina Smith LPN Unavailable Unavailable Reason for Visit * Reason Comments TCM Call Encounter Details Date Type Department Care Team (Late st Contact Info) Description 11/01/2024 Patient Outreach POPUL[facility] [address] [facility] [address] [place] [address] Jasmina Smith LPN VALUE-BASED TRANSFORMATION [place] [address] TCM Call Social History Tobacco Use Types [...] any time in the past 12 m [facility], were you homeless or living in [...] any time in the past 12 m [facility], were you homeless or living in [...] drink first t laurie in the morning (EYE-POWER HOUSE ENGINEER) to steady your nerves or to [...] Upcoming Encounters Date Type Department Care Team ([facility] st Contact Info) Description 11/29/2024 10:30 AM EDT Clinical Support [facility] 800 [facility] 2nd [place] [address] 11/29/2024 11:00 AM EDT Office Visit [facility] [address] [address] Satnam Colvin MD 800 [facility] [address] [place] [address] 11/29/2024 12:30 PM EDT Appointment [facility] 1 [address] [place] [address] 11/30/2024 1:30 PM EDT Appointment [facility] 1 [address] [place] [address] 12/01/2024 2:00 PM EDT Appointment [facility] [address] [place] [address] 12/06/2024 11:40 AM EDT Appointment [facility] CC Radiation [id number] [place] [address] Haven Blum, ORCHARDIST [address] [place] [address] 01/19/2025 9:30 AM EDT Appointment [facility] S Radiology [address]st [place] [address] 01/19/2025 10:45 AM EDT Office Visit [place] [facility] [address], [address]st [place] [address] Abhilash Bangura MD [address] [place] [address] 03/08/2025 1:00 PM EDT Office Visit [facility] [place] 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, PHARMACEUTICAL WORKER Panic 10/26/2024 10/31/2024 Assessment Noted Time PHQ-9 Depression Total Score: 0 09/01/19 25 3:26 PM EDT A fall risk assessment has been complete d for the patient 10/06/2024 2:29 PM EDT A Body Mass Index follow-up plan has been documented for the patient 10/31/2024 4:09 PM EDT documented as of this encounter Care Teams Coin Purse Framer Relationship Specialty Start Date End Date Laurie Gutierrez MD [address] [place] [address] PCP - General 12/09/23 Joshua Martínez MD [address] [place] [address] [address] [place] [address] Consulting Physician Radiation Oncology 09/19/24 Jasmina Smith LPN VALUE-BASED TRANSFORMATION [place] [address] TCM Nurse 10/19/24 11/01/24 documented as of this encounter
--- OUTSIDE RECORDS SUMMARY | 2024-11-25 15:49 | XMS_ITS ---
Author Organization [facility] Address [address] [place] [address] Care Team Providers Care Rod Buster Helper Name Role Phone Laurie Gutierrez MD Primary Care Provider [phone] Joshua Martínez MD Unavailable Sabine Morales LPN Unavailable Unavailable Transitional Care Management Status:Closed (Closed) Start date:10/19/2024 Enrollment date:10/19/2024 Enrollment reason:Identified using hospital discharge data End date:11/01/2024 Close reason:Patient Readmitted Overview This episode type is for outpatient care managers enrolling patients in the [facility] Transitional Care Management program. Continued Care and Services Coordination
--- OUTSIDE RECORDS SUMMARY | 2024-11-25 15:49 | XMS_ITS | Encounter Summary ---
Author Organization [employer] ([place], [place], [place], [place]) Address [address] [place] [address] Care Team Providers Care Bundle Tier And Labeler Name Role Phone Laurie Gutierrez MD Primary Care Provider [phone] Cecilio Barfield MD Unavailable [phone] Sriram Lobato MD Unavailable [phone] Encounter Details Date Type Department Care Team (Late st Contact Info) Description 01/12/2024 Telephone [facility] [address] [place] [address] Cecilio Barfield MD [address] [place] [address] Social History Tobacco Use Types [...] Date Tima rded Speak language other than Citizen [place] at home Not on file 05/26/2023 Want [...] on filedocumented in this encounter Care Teams Bundle Tier And Labeler Relationship Specialty Start Date End Date Laurie Gutierrez MD [address] [place] [address] PCP - General Internal Medicine 04/03/22 Cecilio Barfield MD [address] [facility] [address] Radiation Oncologist Radiation Oncology 08/28/23 Sriram Lobato MD [address] [place] [address] [place] [address] Referring Physician General Internal Medicine 11/24/23 documented as of this encounter
--- OUTSIDE RECORDS SUMMARY | 2024-11-25 15:49 | XMS_ITS | Encounter Summary ---
Author Organization [employer] ([place], [place], [place], [place]) Address [address] [place] [address] Care Team Providers Care Basin Finish Operator Tig Welder Name Role Phone Laurie Gutierrez MD Primary Care Provider [phone] Cecilio Barfield MD Unavailable [phone] Sriram Lobato MD Unavailable [phone] Reason for Referral * Mammography (Routine) - Closed Specialty Diagnoses / Procedures Referred By Mackenzie t Referred To Contact Diagnoses Other screening mammogram Procedures MM digital mammo screen with oswaldo bilateral Yamilet Coleman PA-C [address] [place] [address] Phone: tel: fax: Referral ID Status Reason Start Date Expiration Date Visits Re quested Visits Authorized [id number] Closed 12/31/2023 12/30/2024 1 1 Encounter Details Date Type Department Care Team (Late st Contact Info) Description 12/31/2023 Outside Orders [facility] Central Scheduling [address] [place] [address] Yamilet Coleman PA-C [address] [place] [address] Other screening mammogram (Primary Dx) Social [...] Date Tima rded Speak language other than [place] at home Not on file 05/26/2023 Want [...] the next mammogram. At our facility, a [place] marker is positioned over a visible skin [...] family history of breast cancer. COMPARISON STUDY: [facility] 2021 and 2022 from [facility] FINDINGS: Craniocaudal and mediolateral oblique images [...] mammogram documented in this encounter Care Teams Basin Finish Operator Tig Welder Relationship Specialty Start Date End Date Laurie Gutierrez MD [address] [place] [address] PCP - General Internal Medicine 04/03/22 Cecilio Barfield MD [address] [facility] [address] [address] Radiation Oncologist Radiation Oncology 08/28/23 Sriram Lobato MD [address] [facility] [address] [place] [address] Referring Physician General Internal Medicine 11/24/23 documented as of this encounter
--- OUTSIDE RECORDS SUMMARY | 2024-11-25 15:49 | XMS_ITS | Encounter Summary ---
Author Organization [facility] Address [address] [place] [address] Care Team Providers Care Warehouse Lead Name Role Phone Laurie Gutierrez MD Primary Care Provider [phone] Joshua Martínez MD Unavailable Jasmina Smith LPN Unavailable Unavailable Paradise Pacheco RN Unavailable Unavailab Sabine Crowe COUNTER STACKER Unavailable Unavailable Encounter Details Date Type Department Care Team (Late st Contact Info) Description 06/10/2024 Orders Only External Location [address] [place] [address] Provider, External Social History Tobacco Use Types [...] in a usp (including now)? No 11/20/2023 CAGE ASSESSMENT Answer [...] drink first t laurie in the morning (EYE-PIPE FITTER MAINTENANCE) to steady your nerves or to get [...] [facility] [address] [facility] [address] [place] [address] 11/29/2024 11:00 AM EDT Office Visit [facility] [address] [facility] 2nd [place] [address] Satnam Colvin MD [address] [facility] [address] [place] [address] 11/29/2024 12:30 PM EDT Appointment [facility] 1 [address] [place] [address] 11/30/2024 1:30 PM EDT Appointment [facility] 1 [address] [place] [address] 12/01/2024 2:00 PM EDT Appointment [facility] 1 [address] [place] [address] 12/06/2024 11:40 AM EDT Appointment [facility] Radiation [address] [facility] [address] [place] [address] Haven Blum, PROFESSIONAL PROGRAMMER ANALYST [address] [facility] [address] [place] [address] 01/19/2025 9:30 AM EDT Appointment [facility] S Radiology [address] [place] [address] 01/19/2025 10:45 AM EDT Office Visit [place] [facility] [address] [place] [address] Abhilash Bangura MD [address] [place] [address] 03/08/2025 1:00 PM EDT Office Visit [facility] [place] [facility] [address] 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, CHEMICAL PUMPER Panic 10/26/2024 10/31/2024 Assessment Noted Time A fall risk assessment has been complete d for the patient 01/27/2024 11:18 AM EDT A Body Mass Index follow-up plan has been documented for the patient 01/27/2024 12:19 PM EDT documented as of this encounter Care Teams Warehouse Lead Relationship Specialty Start Date End Date Laurie Gutierrez MD [address] [place] [address] PCP - General 12/09/23 Joshua Martínez MD 800 [facility] [address] [place] [address] Consulting Physician Radiation Oncology 09/19/24 Jasmina Smith LPN VALUE-BASED [place] [address] TCM Nurse 10/19/24 11/01/24 Paradise Pacheco, RN CH-VASCULAR & INTERVENTIONAL RADIOLOGY Registered Nurse 11/21/24 11/21/24 Sabine Morales LPN TCM Nurse 11/23/24 documented as of this encounter
--- OUTSIDE RECORDS SUMMARY | 2024-11-25 15:49 | XMS_ITS | Patient Health Record ---
Author Organization [facility] [place] Address [address] [place] [address] [place] [address] Care Team Providers Care Regulatory Intern Name Role Phone TRAY CARRERA Unavailable [phone] Tray Carrera MD Unavailable Unavailable SATYA GOTTI Unavailable [phone] REAL SAVAGE Unavailable [phone] Yamilet Coleman Unavailable [phone] Justina Beasley Unavailable [phone] Catherine Vidal Unavailable [phone] Allergies Allergen (clinical drug ingredient) Drug/Non Drug Allergy documented on EMR Reaction Allergy Type Onset Date Status Keflex Unknown Drug Allergy Active lisinopril Unknown Drug Allergy Active meloxicam meloxicam Unknown Drug Allergy Active Results Component Value Reference Range Notes X ray : Foot, right 3v Reviewed date:02/01/2024 11:17:29 AM Interpretation: Performing Lab: Notes/Report: MAMMOGRAM, SCREENING Reviewed date:01/06/2024 02:10:11 PM Interpretation:appt is 01/14 @ 10am Performing Lab: Notes/Report: appt is 01/14 @ 10am Urinalysis, Routine Reviewed date:01/04/2024 08:41:20 AM Interpretation: Performing Lab: Notes/Report: Urine-Color YELLOW Appearance LIGHT Specific [place] 1.015 pH 6.0 Glucose 3+ Protein NEG Occult Blood NEG Bilirubin NEG Urobilinogen,Semi-Qn 3.5 Nitrite, Urine NEG Ketones NEG WBC Esterase NEG Lipid Panel With LDL/HDL Rat io Reviewed date:07/11/2024 08:43:28 AM Interpretation: Performing Lab:[facility] [facility], Phone - [phone], Director - [facility] Notes/Report: Cholesterol, Total 137 100-199 mg/dL Triglycerides 98 0-149 mg/dL HDL Cholesterol 51 >39 mg/dL VLDL Cholesterol Luis 18 5-40 mg/dL LDL Chol Calc (RUST) 68 0-99 mg/dL LDL/HDL Ratio 1.3 0.0-3.2 ratio LDL/HDL Ratio Men Women 1/2 Avg.Risk 1.0 1.5 Avg.Risk 3.6 3.2 2X Avg.Risk 6.2 5.0 3X Avg.Risk 8.0 6.1 Microalb/Creat Ratio, Randm Ur Reviewed date:07/11/2024 08:42:54 AM Interpretation: Performing Lab:[facility] [place], [address], Phone - [phone], Director - [facility] Notes/Report: Albumin, Urine <3.0 Not Estab. ug/mL Alb/Creat Ratio <5 0-29 mg/g creat Normal: 0 - 29 Moderately increased: 30 - 300 Severely increased: >300 Vitamin D, 25-Hydroxy Reviewed date:07/11/2024 08:43:34 AM Interpretation: Performing Lab:[facility] [place], [address] [facility], Phone - [phone], Director - [facility] Notes/Report: Vitamin D, 25-Hydroxy 31.8 30.0-100.0 ng/mL Vitamin D deficiency has been defined by the [place] [employer] and an Endocrine Society practice guideline as a level of serum 25-OH vitamin D less than 20 ng/mL (1,2). The Endocrine Society went on to further define vitamin D insufficiency as a level between 21 and 29 ng/mL (2). 1. IOM ([place] [employer]). 2010. Dietary reference intakes for calcium and D. Prabhakar [place]: The National Academies Press. 2. Lawrence MF, Yusuf [place], Pablito ONEAL, et al. Evaluation, treatment, and prevention of vitamin D deficiency: an Endocrine Society clinical practice guideline. JCEM. 2010; 96(7):1911-30. CBC With Differential/Platel et Reviewed date:07/11/2024 08:43:54 AM Interpretation: Performing Lab:[facility] [address] [place] [address], Phone - [phone], Director - [facility] Notes/Report: WBC 7.5 3.4-10.8 x10E3/uL RBC 3.81 [...] TSH Reviewed date:07/11/2024 08:43:39 AM Interpretation: Performing Lab:[facility] [address], Phone - [phone], Director - [facility] Notes/Report: TSH 2.140 0.450-4.500 uIU/mL Urinalysis, Complete Reviewed date:07/11/2024 08:44:12 AM Interpretation: Performing Lab:[facility], [address] [place] [address], Phone - [phone], Director - [facility] Notes/Report: Specific [place] >=1.030 1.005-1.030 pH 5.5 5.0-7.5 Urine-Color Yellow [...] (Random) Reviewed date:07/11/2024 08:44:02 AM Interpretation: Performing Lab:[facility] [place] [facility] [address] [place] [address], Phone - [phone], Director - [facility] Notes/Report: Creatinine, Urine 58.6 Not Estab. mg/dL Protein,Total,Urine 12.6 Not Estab. mg/dL Protein/Creat Ratio 215 0-200 mg/g creat Magnesium, Serum Reviewed date:07/11/2024 08:43:44 AM Interpretation: Performing Lab:[facility] [address], Phone - [phone], Director - [facility] Notes/Report: Magnesium 1.6 1.6-2.3 mg/dL Hemoglobin A1c Reviewed date:07/11/2024 08:43:16 AM Interpretation: Performing Lab:[facility] [address], Phone - [phone], Director - [facility] Notes/Report: Hemoglobin A1c 6.6 4.8-5.6 % . Prediabetes: 5.7 - 6.4 Diabetes: >6.4 Glycemic control for adults with diabetes: <7.0 Vitamin B12 and Folate Reviewed date:07/11/2024 08:42:58 AM Interpretation: Performing Lab:[facility] [address], Phone - [phone], Director - [facility] Notes/Report: Vitamin B12 4707 708-3980 pg/mL Folate (Folic Acid), Serum 9.0 >3.0 ng/mL A serum folate concentration of less than 3.1 ng/mL is considered to represent clinical deficiency. Urinalysis, Routine Reviewed date:03/21/2024 12:29:01 PM Interpretation: Performing Lab: Notes/Report: Urine-Color YELLOW Appearance DARK Specific [place] 1.015 pH 6.0 Glucose 3+ Protein NEG Occult Blood NEG Bilirubin NEG Urobilinogen,Semi-Qn NEG Nitrite, Urine NEG Ketones NEG WBC Esterase NEG Comp. Metabolic Panel (14) Reviewed date:07/11/2024 08:43:11 AM Interpretation: Performing Lab[facility], [address], Phone - [phone], Director - [facility] Notes/Report: Glucose 139 70-99 [...] 0-40 IU/L ALT (SGPT) 14 0-32 IU/L Urinalysis, Complete Reviewed date:09/26/2024 10:10:03 AM Interpretation: Performing Lab: Notes/Report: Specific [place] 1.015 pH 6 Urine-Color YELLOW Appearance CLEAR WBC Esterase NEG Protein NEG Glucose 3+ Ketones NEG Occult Blood NEG Bilirubin NEG Urobilinogen,Semi-Qn 3.5 Nitrite, Urine NEG Comp. Metabolic Panel (14) Reviewed date:02/26/2024 10:41:06 AM Interpretation: Performing Lab:[facility], [address], Phone - [phone], Director - [facility] Notes/Report: Glucose 108 70-99 [...] io Reviewed date:02/26/2024 10:41:23 AM Interpretation: Performing Lab:[facility] [place], [address], Phone - [phone], Director - [facility] Notes/Report: Cholesterol, Total 134 100-199 mg/dL Triglycerides 71 0-149 mg/dL HDL Cholesterol 56 >39 mg/dL VLDL Cholesterol Luis 14 5-40 mg/dL LDL Chol Calc (RUST) 64 0-99 mg/dL LDL/HDL Ratio 1.1 0.0-3.2 ratio LDL/HDL Ratio Men Women 1/2 Avg.Risk 1.0 1.5 Avg.Risk 3.6 3.2 2X Avg.Risk 6.2 5.0 3X Avg.Risk 8.0 6.1 Vitamin D, 25-Hydroxy Reviewed date:02/26/2024 10:41:28 AM Interpretation: Performing Lab:[facility] [place], [address], Phone - [phone], [facility] - [facility] Notes/Report: Vitamin D, 25-Hydroxy 33.8 30.0-100.0 ng/mL Vitamin D deficiency has been defined by the [place] and an Endocrine Society practice guideline as a level of serum 25-OH vitamin D less than 20 ng/mL (1,2). The Endocrine Society went on to further define vitamin D insufficiency as a level between 21 and 29 ng/mL (2). 1. IOM ([place] [employer]). 2010. Dietary reference intakes for calcium and D. Prabhak[place]: The National Academies Press. 2. Lawrence MORRISON, Yusuf MULLINS, Pablito ONEAL, et al. Evaluation, treatment, and prevention of vitamin D deficiency: an Endocrine Society clinical practice guideline. JCEM. 2010; 96(7):1911-30. CBC With Differential/Platel et Reviewed date:02/26/2024 10:42:12 AM Interpretation: Performing Lab:[facility], [address], Phone - [phone], Director - [facility] Notes/Report: WBC 7.5 3.4-10.8 x10E3/uL RBC 3.37 [...] Reviewed date:02/26/2024 10:41:37 AM Interpretation: Performing Lab:[facility] [place], [address], Phone - [phone], Director - [facility] Notes/Report: TSH 2.980 0.450-4.500 uIU/mL Urinalysis, Complete Reviewed date:02/26/2024 10:42:26 AM Interpretation: Performing Lab:[facility] [place], [address], Phone - [phone], Director - [facility] Notes/Report: Specific [place] 1.028 1.005-1.030 pH 6.5 5.0-7.5 Urine-Color Yellow [...] (Random) Reviewed date:02/26/2024 10:42:18 AM Interpretation: Performing Lab:[facility] [address], Phone - [phone], Director - [facility] Notes/Report: Creatinine, Urine 67.9 Not Estab. mg/dL Protein,Total,Urine 9.1 Not Estab. mg/dL Protein/Creat Ratio 134 0-200 mg/g creat Magnesium, Serum Reviewed date:02/26/2024 10:41:42 AM Interpretation: Performing Lab:[facility] [address], Phone - [phone], Director - [facility] Notes/Report: Magnesium 1.8 1.6-2.3 mg/dL Vitamin B12 Reviewed date:02/26/2024 10:41:32 AM Interpretation: Performing Lab:[facility] [address], Phone - [phone], Director - [facility] Notes/Report: Vitamin B12 3269 462-5603 pg/mL Hemoglobin A1c Reviewed date:02/26/2024 10:41:10 AM Interpretation: Performing Lab:[facility] [address], Phone - [phone], Director - [facility] Notes/Report: Hemoglobin A1c 6.3 4.8-5.6 % . Prediabetes: 5.7 - 6.4 Diabetes: >6.4 Glycemic control for adults with diabetes: <7.0 Uric Acid, Serum Reviewed date:02/26/2024 10:41:18 AM Interpretation: Performing Lab:[facility] [place], [address] [place] [address], [place], Phone - [phone], Director - [facility]abe Notes/Report: Uric Acid 5.0 3.0-7.2 mg/dL Therapeutic ta rget for gout patients: <6.0 MAMMOGRAM, SCREENING Reviewed date:01/04/2024 10:35:30 AM Interpretation:appt is 01/14 Performing Lab: Notes/Report: appt is 01/14 Electrocardiogram (EKG) Reviewed date:08/14/2024 05:14:30 PM Interpretation: Performing Lab: Notes/Report: Urinalysis, Routine Reviewed date:12/07/2023 04:42:31 PM Interpretation: Performing Lab: Notes/Report: Urine-Color YELLOW Appearance DARK Specific [place] 1.000 pH 6.5 Glucose 3+ Protein +- 15MG Occult Blood +- 10ERY Bilirubin NEG Urobilinogen,Semi-Qn - Nitrite, Urine NEG Ketones NEG WBC Esterase 2+ Reason For Referral Reason right foot pain Diagnosis 1 Foot pain, right (M7 9.671) Referral Organization [facility] Referring Provider First Name Yamliet Referring Provider Last Name Jared Referring Provider Speciality Physician Display Specialist Referred Provider FELIPA CERVANTES Referred Provider Specialty Podiatry General Notes JANNETH MORALES 02/02 01:40:42 PM > FAXEDCARMEN DEBBIE 02/05/2024 09:42:21 AM > PER FAX PT HAS BEEN NOTIFIED. Referral Priority Urgent Referral Appointment Date 02/25/2024 Reason Samson Best M.D. Orthopaedic & Spine Surgery at [facility] orthopedic Diagnosis 1 Low back pain, unspe cified (M54.50) Referral Organization [facility] [place] Referring Provider First Name Justina Referring Provider Last Name Ramos Referring Provider Speciality Nurse Prac titioner Referred Provider deepa gillette Referred Provider Specialty Orthopedic S urgery General Notes JANNETH MORALES 08/26 10:34:29 AM > FAXED, JANNETH MORALES 09/13/2024 04:05:27 PM > PT NOTIFIED BY ORTHO Referral Priority Urgent Referral Appointment Date 09/14/2024 Reason PT/OT and home healt h , starting chemo Diagnosis 1 Malignant neoplasm o f unspecified part of unspecified bronchus or lung (C34.90) Referral Organization [facility] Referring Provider First Name Yamilet Referring Provider Last Name Jared Referring Provider Speciality Physician Display Specialist Referred Provider Home [facility] 2, Lual baez Referred Provider Specialty Other Medica l Care General Notes TINGLEANAYELIJANNETH 10/04 12:09:51 PM > FAXED Referral Priority Urgent Reason home health, PT, OT Diagnosis 1 Pneumonia, unspecifi ed organism (J18.9) Referral Organization [facility] Referring Provider First Name Yamilet Referring Provider Last Name Jared Referring Provider Speciality Physician Display Specialist Referred Provider [facility] 2, Lula baez Referred Provider Specialty Other Medica l Care General Notes TINGLEANAYELIJANNETH 10/28 01:52:00 PM > FAXED Referral Priority Routine Reason home health [facility] Diagnosis 1 Cellulitis of left l ower extremity (L03.116) Referral Organization [facility] Referring Provider First Name REAL [...] day for 90 days Active Dexcom G6 Heating Operators Engineer - as directed 02/12/2024 Active Gabapentin 600 [...] twice a day 10/20/2024 Active Dexcom G7 Heating Operators Engineer - as directed 09/26/2024 Active Insulin Glargine-yfgn 100 UNIT/ML inject 20 units under the skin Subcutaneous nightly Active Dexcom G7 Sensor - as directed 09/26/2024 Active Nystatin 322638 UNIT/ML swish and swallo w 5mL Mouth/Throat [...] Hyperglycemia due to type 2 diabetes mellitus (708525516063159) Type 2 diabetes mellitus with hyperglycemia (E11.65) 016 Active confirmed Ricky-Bi n Problem Type II diabetes mellitus without complication (017017995) Type 2 diabetes mellitus without complications (E11.9) Active confirmed Ricky-Bi n Problem Mixed hyperlipidemia (669139649) Mixed hyperlipidemia (E78.2) Active confirmed Ricky-Bi n Problem Essential hypertension (82072644) Essential (primary) hypertension (I10) Active confirmed Ricky-Bi n Problem Congenital single renal cyst (5852765919948) Congenital single renal cyst (Q61.01) 016 Active confirmed Ricky-Bi n Problem Malignant tumor of lung (283577744) Malignant neoplasm of unspecified part of unspecified bronchus or lung (C34.90) Active confirmed Problem Anemia (502400430) Anemia, unspe cified (D64.9) Active confirmed Problem Hypomagnesemia (006312426) Hypomagnesemia (E83.42) Active confirmed Problem Disorder of urinary bladder (75681660) Other specified disorders of bladder (N32.89) Active confirmed Problem Abnormal uterine bleeding (62840126405115) Abnormal uterine and vaginal bleeding, unspecified (N93.9) Active confirmed Problem Congenital renal cyst (108114861059231) Congenital multiple renal cysts (Q61.02) Active confirmed Problem Nausea (379099002) Nausea (R11.0) Active confir med Problem Body mass index 40+ - severely obese (339778712) Body mass index (BMI) 45.0-49.9, adult (Z68.42) Active confirmed Problem Vitamin D deficiency (22024132) Vitamin D deficiency (E55.9) Active confirmed Problem Neuropathy (421869559) Neuropathy (G62.9) Active confirmed Problem Anxiety (53058814) Anxiety (F41.9) Active confi rmed Problem Chronic kidney disease stage 2 (337631767) Chronic kidney disease (CKD), stage II (mild) (N18.2) Active confirmed Problem Gastroesophageal reflux disease without esophagitis (144781224) Gastroesophageal reflux disease without esophagitis (K21.9) Active confirmed Problem Allergic rhinitis (28434456) Allergic rhinitis (J30.9) Active confirmed Problem Allergic rhinitis (82347289) Acute allergic rhinitis, unspecified seasonality, unspecified trigger (J30.9) Active confirmed Problem Restless legs (59372574) Restless leg (G25.81) Active confirmed Problem Patient immunocompromised (449051153) Immunocompromised patient (D84.9) Active confirmed Problem Diabetes mellitus type 2 (98378583) Diabetes mellitus type 2, uncontrolled (E11.65) Active confirmed Problem Incontinence (16762205) Incontinence in female (R32) Active confirmed Problem Acute exacerbation of chronic obstructive airways disease (495466323) COPD exacerbation (J44.1) Active confirmed Problem Chronic obstructive lung disease (46939116) COPD without exacerbation (J44.9) Active confirmed Problem Irritable bowel syndrome (88514786) Irritable bowel syndrome, unspecified type (K58.9) Active confirmed Problem Tobacco dependence (57790464) Tobacco dependence (F17.200) Active confirmed Problem Vertebrogenic low back pain (798909363881489035 ) Vertebrogenic low back pain (M54.51) Active confirmed Vital Signs Heart Rate 102 /min 11/24/2024 Temperature 98.7 degrees Fahrenheit 11/24/2024 Respiratory Rate 20 /min 11/24/2024 Oximetry 96 % 11/24/2024 Blood pressure diastolic 88 mm Hg 11/24/2024 Height 67 in 11/24/2024 Blood pressure systolic 130 mm Hg 11/24/2024 Weight 242 lbs 08/23/2024 BMI 37.9 kg/m2 08/23/2024 Encounters Encounter Location Date Provider Diagnosis [facility] [address] [place] [address] 12/07/2023 Yamilet Coleman Dysuria R30.0 ; Alee min D deficiency E55.9 ; Gastroesophageal reflux disease without esophagitis K21.9 ; Anxiety F41.9 ; Essential (primary) hypertension I10 ; Acute cystitis without hematuria N30.00 ; Type 2 diabetes mellitus with hyperglycemia E11.65 ; Neuropathy G62.9 and Bronchitis J40 [facility] [place] [address] 01/01/2024 Yamilet Berry Dysuria R30.0 ; Abno rmal uterine and vaginal bleeding, unspecified N93.9 ; Vitamin D deficiency E55.9 ; Gastroesophageal reflux disease without esophagitis K21.9 ; Anxiety F41.9 ; Essential (primary) hypertension I10 ; Neuropathy G62.9 ; Screening for breast cancer Z12.31 and Type 2 diabetes mellitus with hyperglycemia E11.65 [facility] [place] [address] 02/01/2024 Yamilet Coleman Foot pain, right M79 .671 and Encounter for immunization Z23 [facility] [place] [address] 02/05/2024 Yamilet Berry Foot pain, right M79 .671 [facility] [place] [address] 02/25/2024 Yamileteliot Coleman Annual physical exam Z00.00 [...] deficiency E55.9 [facility] [place] [address] 03/21/2024 Yamilet Coleman COVID-19 U07.1 ; Dys uria R30.0 ; Yeast infection B37.9 ; Vitamin D deficiency E55.9 ; Gastroesophageal reflux disease without esophagitis K21.9 ; Type 2 diabetes mellitus with hyperglycemia E11.65 and COPD without exacerbation J44.9 [facility] [place] [address] 03/28/2024 Yamilet Coleman Acute frontal sinusi tis, unspecified J01.10 and Acute bacterial conjunctivitis of right eye H10.31 [facility] [place] [address] 04/27/2024 Yamilet Coleman Type 2 diabetes mo itus with hyperglycemia E11.65 ; COPD without exacerbation J44.9 ; Congenital multiple renal cysts Q61.02 ; Gastroesophageal reflux disease without esophagitis K21.9 ; Neuropathy G62.9 ; Malignant neoplasm of unspecified part of unspecified bronchus or lung C34.90 ; Mixed hyperlipidemia E78.2 ; Allergic rhinitis J30.9 and Vitamin D deficiency E55.9 [facility] [place] [address] 05/16/2024 Yamilet Coleman Type 2 diabetes mo [...] type R53.83 [facility] [address] [place] [address] 07/08/2024 Yamileteliot Coleman Type 2 diabetes mo [...] B35.1 and Fatigue, unspecified type R53.83 [facility] [place] [address] 08/05/2024 Catherine Vidal Acute cough R05.1 ; Pneumonia, unspecified organism J18.9 ; COPD without exacerbation J44.9 and Malignant neoplasm of unspecified part of unspecified bronchus or lung C34.90 [facility] [place] [place] [address] 08/12/2024 Catherine Vidal Chest pain at rest R 07.9 ; Essential (primary) hypertension I10 ; COPD without exacerbation J44.9 and Chronic kidney disease (CKD), stage II (mild) N18.2 [facility] [place] [address] 08/23/2024 Justina Ramos Low back pain, unspecified M54.50 ; Restless leg G25.81 and Anemia, unspecified D64.9 [facility] [place] [address] 09/26/2024 Yamilet Coleman Type 2 diabetes mo [...] (mild) N18.2 [facility] [address] [place] [address] 09/29/2024 Yamilet Coleman Pneumonia, unspecifi ed organism J18.9 ; Malignant neoplasm of unspecified part of unspecified bronchus or lung C34.90 ; Acute cough R05.1 ; Weakness generalized R53.1 ; COPD without exacerbation J44.9 and Anxiety F41.9 [facility] [address] [place] [address] 10/21/2024 Yamilet Coleman Pneumonia, unspecifi ed organism J18.9 ; Malignant neoplasm of unspecified part of unspecified bronchus or lung C34.90 ; Essential (primary) hypertension I10 ; Acute cough R05.1 ; Weakness generalized R53.1 ; COPD without exacerbation J44.9 and Anxiety F41.9 [facility] [address] [place] [address] 11/24/2024 REAL PENGEY Cellulitis of left l ower extremity L03.116 ; Yeast infection B37.9 ; Type 2 diabetes mellitus with hyperglycemia E11.65 ; Cellulitis of right external ear H60.11 and Immunocompromised patient D84.9 [facility] [place] [address] 11/30/2023 RERYANNE CARRERA [facility] [address] [place] [address] 11/30/2023 Yaimlet Berry [facility] [address] [place] [address] 11/30/2023 SATYA GOTTI [facility] [address] [place] [address] 11/30/2023 SATYA GOTTI [facility] [place] [address] 12/07/2023 SATYA GOTTI Neuropathy G62.9 [facility] [place] [address] 12/08/2023 Yamilet Coleman [facility] [address] [place] [address] 12/22/2023 Yamilet Coleman Other screening mammogram Z12.31 [facility] [address] [place] [address] 02/03/2024 Yamilet Jared Anxiety F41.9 ; Neuropathy G62.9 and Type 2 diabetes mellitus with hyperglycemia E11.65 [facility] [address] [place] [address] 02/11/2024 Yamilet Berry [facility] [address] [place] [address] 02/12/2024 Yamilet Coleman Type 2 diabetes mo itus with hyperglycemia E11.65 [facility] [place] [address] [place] [phone] 02/16/2024 TRAY CARRERA [facility] [address] [place] [address] 03/04/2024 TRAY CARRERA Anxiety F41.9 [facility] [address] [place] [address] 03/21/2024 Yamilet Coleman [facility] [address] [place] [address] 03/21/2024 Yamilet Colemna [facility] [address] [place] [address] 03/21/2024 Yamilet Coleman [facility] [address] [place] [address] 04/05/2024 Yamilet Coleman Gastroesophageal ref lux disease without esophagitis K21.9 and COPD without exacerbation J44.9 [facility] [address] [place] [address] 05/06/2024 TRAY CARRERA Type 2 diabetes mo itus with hyperglycemia E11.65 [facility] [place] [address] [place] [phone] 05/10/2024 TRAY CARRERA [facility] [address] [place] [address] 06/03/2024 Yamilet Coleman Type 2 diabetes mo itus with hyperglycemia E11.65 [facility] [place] [address] 07/04/2024 Yamilet Coleman [facility] [address] [place] [address] 07/04/2024 Yamilet Coleman Yeast infection B37. 9 and Type 2 diabetes mellitus with hyperglycemia E11.65 [facility] [address] [place] [address] 08/02/2024 Yamilet Coleman [facility] [place] [address] 09/28/2024 Yamilet Coleman [facility] [facility] [address] [place] [address] 10/20/2024 TRAY CARRERA Assessments Encounter Date Diagnosis [...] diabetes mellitus with hyperglycemia (ICD-10 - E11.65) [facility] [place] A1c 6.3% she reports doing well with medicaitons 08/12/2024 Chest pain at rest (ICD-10 - R07.9) EKG-normal sinus rhythm Pt to [facility] cariologist's office about cp. 09/29/2024 Malignant neoplasm [...] heath, 02/27/2025 10:30:00 AM, [address], [place], [address], Insurance Providers Payer Name Payer Address Payer Phone Subscriber Number Group Number Insured Name Patient Relationship to Insured Coverage Start Date Coverage End Date [employer] MEDICA[employer] -[facility] [address] [place] [address] [phone] [id number] Teresa Rivera Self - patient is the insured Medical (General) History Medical History History ICD Code Hypertension (Ricky)High Cholesterol (Ricky) Arthritis (Ricky)Diabetes (Ricky) Surgical History Surgery Date(Month/Year) No Surgeries As Of Todays Date Hospitalization History Reason Date(Month/Year) Pneumonia 06/2017
--- OUTSIDE RECORDS SUMMARY | 2024-11-25 15:49 | XMS_ITS | Encounter Summary ---
Author Organization [facility] Address [address] [place] [address] Care Team Providers Care Hydraulic Governor Assembler Name Role Phone Laurie Gutierrez MD Primary Care Provider [phone] Joshua Martínez MD Unavailable Encounter Details Date [...] drink first t laurie in the morning (EYE-HIDE DROPPER) to steady your nerves or to get [...] [facility] [address] [facility], 2nd [place] [address] 11/29/2024 11:00 AM EDT Office Visit [facility] [address] [facility], [address]nd [place] [address] Satnam Colvin MD [address] [facility] [address] [place] [address] 11/29/2024 12:30 PM EDT Appointment [facility] [address] [place] [address] 11/30/2024 1:30 PM EDT Appointment [facility] [address] [place] [address] 12/01/2024 2:00 PM EDT Appointment [facility] [address] [place] [address] 12/06/2024 11:40 AM EDT Appointment [facility] Radiation [address] [facility]. [id number] [place] [address] Haven Blum, PIPE CHANGER [address] [facility] [address] [place] [phone] 01/19/2025 9:30 AM EDT Appointment [facility] Radiology [address], [address] [place] [id number] 01/19/2025 10:45 AM EDT Office Visit [place] [facility] [address], [address] [place] [phone] Abhilash Bangura MD [address] [place] [address] 03/08/2025 1:00 PM EDT Office Visit [facility] [place] [address] [place] [address] eTresita Oconnell MD [address] [place] [address] documented as of this encounter [...] Date End Date Laurie Gutierrez MD [address] [place] [address] PCP - General 12/09/23 Joshua Martínez MD [address] [address] [place] [phone] Consulting Physician Radiation Oncology 09/19/24 documented as of this encounter
--- OUTSIDE RECORDS SUMMARY | 2024-11-25 15:49 | XMS_ITS | Encounter Summary ---
Author Organization [facility] Address [address] [place] [address] Care Team Providers Care Wood Veneer Taper Name Role Phone Paola Hyde APRN Primary Care Provider Laurie Gutierrez MD Primary Care Provider [phone] Joshua Martínez MD Unavailable Jasmina Smith FILTER CHANGING TECHNICIAN Unavailable Unavailable Paradise Pacheco RN Unavailable Unavailab Sabine Crowe FILTER CHANGING TECHNICIAN Unavailable Unavailable Encounter Details Date Type Department Care Team (Late Contact Info) Description 09/01/2023 Orders Only External Location [address] [place] [address] Provider, External Social History Tobacco [...] Neck & Respiratory [address] [facility], [address] [place] [address] 11/29/2024 11:00 AM EDT Office Visit [facility] [address] [facility], [address] [place] [address] Satnam Colvin MD [address] [facility] [address] [place] [address] 11/29/2024 12:30 PM EDT Appointment [facility] [address] [place] [address] 11/30/2024 1:30 PM EDT Appointment [facility] [address] [place] [address] 12/01/2024 2:00 PM EDT Appointment [facility] [address] [place] [address] 12/06/2024 11:40 AM EDT Appointment [facility] Radiation [address] [facility]. [id number] [place] [address] Haven Blum, DOBIE WORKER [address] [facility] [address] [place] [address] 01/19/2025 9:30 AM EDT Appointment [facility] Radiology [address], [address] [place] [address] 01/19/2025 10:45 AM EDT Office Visit [place] [facility] [address], [address] [place] [address] Abhilash Bangura MD [address] [place] [address] 03/08/2025 1:00 PM EDT Office Visit [facility] [place] 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, CODE NUMBER STAMPER Panic 10/26/2024 10/31/2024 documented as of this encounter Care Teams Wood Veneer Taper Relationship Specialty Start Date End Date Paola Hyde APRN [address] [place] [address] PCP - General 09/28/20 12/08/23 Laurie Gutierrez MD [address] [place] [address] PCP - General 12/09/23 Joshua Martínez MD [address] [place] [address] Consulting Physician Radiation Oncology 09/19/24 Jasmina Smith LPN VALUE-[place]ED [place] [address] TCM Nurse 10/19/24 11/01/24 Paradise Pacheco RN CH-VASCULAR & INTERVENTIONAL RADIOLOGY Registered Nurse 11/21/24 11/21/24 Sabine Morales LPN TCM Nurse 11/23/24 documented as of this encounter
--- OUTSIDE RECORDS SUMMARY | 2024-11-25 15:49 | XMS_ITS | Clinical Summary ---
Author Organization [facility] Address [address] [place] [address] Care Team Providers Care Job Putter Up And Ticket Preparer Name Role Phone Laurie Gutierrez MD Primary Care Provider [phone] Joshua Martínez MD Unavailable Sabine Morales LPN [...] tablet 5 11/09/19 25 Active nystatin (Mycostatin) 345378 UNIT/GM powder Apply on bottom 2 times a day 30 g 11/09/19 25 Active lidocaine (Xylocaine) 5 % ointment Apply 2 times a day. 30 g 11/09/19 25 Active acetaminophen (Tylenol) 325 MG tablet Take 2 tablets by mouth every 6 hours. Under [place] law, monthly prescriptions (30 days) can be [...] evening. 2024 Discontinued(S top Taking at Discharge) empagliflozin (Jardiance) 25 MG Take 1 tablet by mouth daily. 2024 Discontinued(S top Taking at Discharge) tiZANidine (Zanaflex) 2 MG tablet Take 1 tablet by mouth nightly. 2024 Discontinued(E ntered in Error) ondansetron (Zofran) 8 [...] 2024 Discontinued(E ntered in Error) nystatin (Mycostatin) 605888 UNIT/ML suspension Swish and swallow 5 mL 4 times a day for 39 doses. 195 mL 10/19/19 25 2024 Discontinued(S top Taking at Discharge) metoprolol succinate XL (Toprol-XL) 25 MG 24 hr tablet Take 2 tablets by mouth daily. Do not crush or chew. 60 tablet 11 10/26/19 25 2024 Discontinued(S top Taking at Discharge) insulin lispro [...] a day for 9 doses. 9 capsule 11/17/19 25 2024 Discontinued(S top Taking at Discharge) Active Problems [...] Encounters Date Type Department Care Team Description 11/25/2024 Patient Outreach [facility] [address] [facility] [address], [address] [place] [address] Sabine Morales LPN TCM Call 11/24/2024 Patient Outreach [facility] [address] [place] [address], [address] [place] [address] Sabine Morales LPN TCM Call 11/23/2024 Patient Outreach [facility] [address], [address] [place] [address] Sabine Morales LPN TCM Call 11/22/2024 Travel 11/21/2024 Patient Outreach [facility] [address], [address] [place] [address] Paradise Pacheco, RN Link 11/19/2024 12:35 AM EDT - 11/22/2024 4:58 PM EDT Hospital Encounter [facility] H Inpatient [address] [place] [address] Jose David Ponce MD Wolak, Megan M, MD Atrial fibrillation with rapid ventricular response (CMS/HCC) (Primary Dx); Small cell carcinoma of lung, unspecified laterality, unspecified part of lung; Type 2 diabetes mellitus with diabetic neuropathy, unspecified whether joint terminal attack controller insulin use (CMS/HCC) Discharge Disposition: Home or Self Care 11/19/2024 Travel 11/18/2024 Orders Only External Location [address] [place] [address] Nuria Lunsford PA 11/18/2024 Orders Only External Location [address] [place] [address] Provider, External 11/16/2024 Travel 11/15/2024 4:42 PM EDT - 11/16/2024 3:39 PM EDT Hospital Encounter [facility] A Emergency Department [address] [place] [address] Ashu Ortiz MD Nickols, Alexis K, MD Wheelock, Brittany N, MD SAH (subarachnoid hemorrhage) (CMS/HCC) (Primary Dx); SDH (subdural hematoma) (CMS/HCC); Nondisplaced fracture of distal phalanx of left thumb, initial encounter for closed fracture; Acute cystitis without hematuria Discharge Disposition: Home or Self Care 11/15/2024 Orders Only External Location [address] [place] [address] Regina Katz, ELECTRONICS TECHNOLOGY INSTRUCTOR 11/15/2024 Orders Only External Location [address] [place] [address] Regina Katz, ELECTRONICS TECHNOLOGY INSTRUCTOR 11/15/2024 Orders Only External Location [address] [place] [address] Regina Katz, ELECTRONICS TECHNOLOGY INSTRUCTOR 11/15/2024 Orders Only External Location [address] [place] [address] Regina Katz, ELECTRONICS TECHNOLOGY INSTRUCTOR 11/15/2024 Travel 11/15/2024 Orders Only External Location [address] [place] [address] Provider, External 11/15/2024 Orders Only External Location [address] [place] [address] Provider, External 11/15/2024 Orders Only External Location [address] [place] [address] Provider, External 11/15/2024 Orders Only External Location [address] [place] [address] Regina Katz, ELECTRONICS TECHNOLOGY INSTRUCTOR 11/15/2024 Orders Only External Location [address] [place] [address] Provider, External 11/14/2024 8:45 AM EDT - 11/14/2024 11:59 PM EDT Hospital Encounter [facility] CC Radiation [address] [place] [address] Discharge Disposition: Still a Patient 11/14/2024 Travel 11/10/2024 2:39 PM EDT - 11/10/2024 11:59 PM EDT Hospital Encounter [facility]fusion [facility] 1 [address] [place] [address] 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) Discharge Disposition: Home or Self Care 11/10/2024 Travel 11/09/2024 2:49 PM EDT - 11/09/2024 11:59 PM EDT Hospital Encounter [facility] 2 [address] [place] [address] 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) Discharge Disposition: Home or Self Care 11/09/2024 Travel 11/08/2024 2:00 PM EDT - 11/08/2024 11:59 PM EDT Hospital Encounter [facility]fusion [facility] 1 [address] [place] [address] 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) Discharge Disposition: Home or Self Care 11/08/2024 11:20 AM EDT Office Visit [facility] Respiratory [address] [facility] 2nd [place] [address] Satnam Colvin MD 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); Encounter for antineoplastic chemotherapy; Acute hypoxic respiratory failure; Chemotherapy-induced neutropenia (CMS/HCC); Neoplastic (malignant) related fatigue 11/08/2024 11:00 AM EDT Clinical Support [facility] [address] [address] Extensive stage primary small cell carcinoma of lung 11/08/2024 Social Work Psych Oncology [address] [place] [address] Mariah Rowley 11/08/2024 Travel 11/07/2024 12:14 PM EDT - 11/07/2024 11:59 PM EDT Hospital Encounter [facility] Radiation [address] [address] Discharge Disposition: Still a Patient 11/07/2024 8:45 AM EDT - 11/07/2024 12:13 PM EDT Hospital Encounter [facility] Radiation [address] [address] Discharge Disposition: Still a Patient 11/07/2024 Orders Only [facility] Radiation [address] [address] Radiation Oncology, PhysicianMD 11/07/2024 Orders Only [facility] Radiation [address] [address] Radiation Oncology, PhysicianMD 11/07/2024 Travel 11/04/2024 10:49 AM EDT - 11/04/2024 11:59 PM EDT Hospital Encounter [facility] Radiation [address] [address] Discharge Disposition: Still a Patient 11/04/2024 Orders Only [facility] Radiation [address] [address] Radiation Oncology, Physician, 11/04/2024 Social Work Psych Oncology [address] [place] [address] Mariah Rowley 11/02/2024 10:54 AM EDT - 11/02/2024 11:59 PM EDT Hospital Encounter [facility] Radiation [address] [address] Discharge Disposition: Still a Patient 11/02/2024 Social Work Psych Oncology [address] [place] [address] Mariah Rowley 11/02/2024 Orders Only [facility] Radiation [address] [address] Radiation Oncology, PhysicianMD 11/01/2024 10:58 AM EDT - 11/01/2024 11:59 PM EDT Hospital Encounter [facility] Radiation [address] [place] [address] Garirson Marie MD 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CMS/HCC) (Primary Dx) Discharge Disposition: Still a Patient 11/01/2024 10:16 AM EDT - 11/01/2024 10:57 AM EDT Hospital Encounter [facility] Radiation [address] [address] Discharge Disposition: Still a Patient 11/01/2024 Patient Outreach POPULATION [address], [address] [place] [address] Jasmina Smith LPN TCM Call 11/01/2024 Travel 11/01/2024 Orders Only [facility] Radiation [address] [address] Radiation Oncology, Physician, 10/31/2024 8:45 AM EDT - 10/31/2024 11:59 PM EDT Hospital Encounter [facility] Radiation [address] [address] Discharge Disposition: Still a Patient 10/31/2024 8:41 AM EDT - 10/31/2024 8:44 AM EDT Hospital Encounter [facility] Radiation [address] [address] Discharge Disposition: Still a Patient 10/31/2024 Travel 10/31/2024 Orders Only [facility] Radiation [address] [address] Radiation Oncology, Physician, 10/28/2024 8:46 AM EDT - 10/28/2024 11:59 PM EDT Hospital Encounter [facility] Radiation [address] [address] Discharge Disposition: Still a Patient 10/28/2024 Social Work Psych Oncology [address] [place] [address] Mariah Rowley 10/28/2024 Orders Only [facility] Radiation [address] [address] Radiation Oncology, Physician, 10/27/2024 11:45 AM EDT - 10/27/2024 11:59 PM EDT Hospital Encounter [facility] Radiation [address] [address] Discharge Disposition: Still a Patient 10/27/2024 Orders Only [facility] CC Radiation [address] [address] Radiation Oncology, PhysicianMD 10/26/2024 11:30 AM EDT - 10/26/2024 11:59 PM EDT Hospital Encounter [facility] Radiation [address] [address] Discharge Disposition: Still a Patient 10/26/2024 Orders Only [facility] Radiation [address] [address] Radiation Oncology, PhysicianMD 10/25/2024 12:45 PM EDT - 10/25/2024 11:59 PM EDT Hospital Encounter [facility] Radiation [address] [address] Discharge Disposition: Still a Patient 10/25/2024 10:03 AM EDT - 10/31/2024 5:33 PM EDT Hospital Encounter P[facility] H Inpatient [address] [place] [address] West Bobby MD Lile, Anthony G, MD Pneumonia of right upper lobe due to infectious organism (Primary Dx); Hypoxia; Other fatigue Discharge Disposition: Home or Self Care 10/25/2024 8:40 AM EDT Office Visit [facility] [address] [place] [address] Vonnie Barksdale PA Atrial flutter with rapid ventricular response (CMS/HCC) (Primary Dx); High risk medication use; Anesthesia of skin 10/25/2024 Orders Only [facility] Radiation [address] [address] Radiation Oncology, PhysicianMD 10/25/2024 Travel 10/24/2024 11:48 AM EDT - 10/24/2024 11:59 PM EDT Hospital Encounter [facility] Radiation [address] [address] Discharge Disposition: Still a Patient 10/24/2024 11:47 AM EDT Hospital Encounter [facility] Radiation [address] [phone] Joshua Martínez MD Discharge Disposition: Still a Patient 10/24/2024 8:59 AM EDT - 10/24/2024 11:46 AM EDT Hospital Encounter [facility] Radiation [address] [phone] Discharge Disposition: Still a Patient 10/24/2024 Orders Only [facility] CC Radiation [address] [address] Radiation Oncology, PhysicianMD 10/24/2024 Travel 10/20/2024 9:22 AM EDT - 10/20/2024 11:59 PM EDT Hospital Encounter [facility] Radiation [address] [address] Discharge Disposition: Still a Patient 10/20/2024 12:10 AM EDT - 10/20/2024 9:21 AM EDT Hospital Encounter [facility] Radiation [address] [address] Discharge Disposition: Still a Patient 10/19/2024 Patient Outreach [facility] [address], [address] [place] [address] Jasmina Smith, FELLMONGERY WORKER TCM Call 10/19/2024 Telephone [facility] [address] [facility] [place] [address] Teresita Oconnell MD 10/18/2024 Travel 10/17/2024 Orders Only [facility] Respiratory [address] [facility], 2nd [place] [address] Rupa De Santiago, PharmD 10/14/2024 Travel 10/13/2024 Travel 10/12/2024 4:08 PM EDT - 10/18/2024 12:48 PM EDT Hospital Encounter P[facility] A Inpatient [address] [place] [address] Sanya Ledezma MD Garrison, Caitlin M, Hyacinth Michael MD Tsering Dolkar, Unknown, MD Febrile neutropenia (CMS/HCC) (Primary Dx); Hypomagnesemia Discharge Disposition: Home or Self Care 10/12/2024 Travel 10/12/2024 Telephone [facility] [address], [address]st [place] [address] Abhilash Bangura MD HCN - Patient Message (Call back ) 10/06/2024 2:22 PM EDT - 10/06/2024 11:59 PM EDT Hospital Encounter [facility] H Infusion [address] [place] [address] 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) Discharge Disposition: Home or Self Care 10/06/2024 Travel 10/05/2024 2:13 PM EDT - 10/05/2024 11:59 PM EDT Hospital Encounter [facility] H Infusion [address] [place] [address] 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) Discharge Disposition: Home or Self Care 10/05/2024 Travel 10/04/2024 11:02 AM EDT - 10/04/2024 11:59 PM EDT Hospital Encounter [facility] H Infusion [address] [place] [address] 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) Discharge Disposition: Home or Self Care 10/04/2024 10:40 AM EDT Office Visit [facility] Res[facility] [address] [facility] [address]nd [place] [address] Satnam Colvin MD 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); Brain mass; Type 2 diabetes mellitus without complication, without long-term current use of insulin; Primary hypertension; Encounter for antineoplastic chemotherapy 10/04/2024 10:00 AM EDT Clinical Support [facility] [address] [address] Extensive stage primary small cell carcinoma of lung 10/04/2024 Social Work Psych Oncology [address] [place] [address] Mariah Rowley 10/04/2024 Travel 10/03/2024 10:06 AM EDT - 10/03/2024 11:59 PM EDT Hospital Encounter [facility] Radiation [address] [address] 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CMS/HCC) Discharge Disposition: Still a Patient 10/03/2024 Travel 09/30/2024 Travel 09/26/2024 4:00 PM EDT - 09/26/2024 11:59 PM EDT Hospital Encounter [facility] Radiation [address] [address] Discharge Disposition: Still a Patient 09/26/2024 12:55 PM EDT - 09/26/2024 3:59 PM EDT Hospital Encounter [facility] Radiation [address] [address] Joshua Martínez MD 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CMS/HCC) (Primary Dx); Brain mass Discharge Disposition: Still a Patient 09/26/2024 Travel 09/22/2024 2:45 PM EDT Office Visit [place] [facility] [address] 1st [place] [address] Abhilash Bangura MD 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CMS/HCC) (Primary Dx) 09/22/2024 Orders Only [facility] [address], [address] [place] [address] Abhilash Bangura MD 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CMS/HCC) (Primary Dx) 09/22/2024 Travel 09/20/2024 10:00 AM EDT Office Visit [facility] Respiratory 800 [facility], 2nd [place] [address] Satnam Colvin MD SDH (subdural hematoma) (CMS/HCC) (Primary Dx); Brain mass; Extensive stage primary small cell carcinoma of lung; Type 2 diabetes mellitus without complication, without long-term current use of insulin; Primary hypertension; Encounter for antineoplastic chemotherapy 09/20/2024 Social Work Psych Oncology [address] [place] [address] Mariah Rowley 09/20/2024 Travel 09/19/2024 Orders Only [facility] [address] [place] [address] Haven Peterson, Type 2 diabetes mellitus with hyperglycemia, without long-term current use of insulin (CMS/HCC) (Primary Dx) 09/13/2024 Telephone [facility] CC Radiation [address] [facility]. [id number] [place] [address] Joshua Martínez MD 09/12/2024 Travel 09/05/2024 7:30 AM EDT - 09/05/2024 10:40 AM EDT Surgery P[facility] A OPERATING ROOM [address] [place] [address] Abhilash Banugra MD CRANIOTOMY, FOR INTRACRANIAL NEOPLASM EXCISION [62417 (CPT )] 09/05/2024 7:30 AM EDT Anesthesia Event P[facility] A OPERATING ROOM [address] [place] [address] Ry Villalba MD Garrett, Olivia F, DO 09/05/2024 Travel 09/04/2024 Travel 09/01/2024 Travel 08/31/2024 5:55 PM EDT - 09/09/2024 2:27 PM EDT Hospital Encounter PAV A Inpatient [facility] [address] [place] [address] Manuel Almonte MD Prabhu, Ashwin B, MD Leung, Stephanie, MD Tackett, Madison S, Right leg weakness (Primary Dx); SDH (subdural hematoma) (CMS/HCC); Brain mass Discharge Disposition: Rehab Facility 08/31/2024 3:20 PM EDT Office Visit [facility] [address] [place] [address] Teresita Oconnell MD Atrial flutter with rapid [...] living in a correction (including now)? No 11/21/2024 CAGE ASSESSMENT Answer [...] drink first t laurie in the morning (EYE-AERIAL ERECTOR) to steady your nerves or to [...] Respiratory [address] [facility], [address]nd [place] [address] 11/29/2024 11:00 AM EDT Office Visit [facility] Res[facility] [address] [facility], 2nd [place] [address] Satnam Colvin MD [address] [facility] Nuria Degroot [facility] [address] [place] [address] 11/29/2024 12:30 PM EDT Appointment [facility] 1 [address] [place] [address] 11/30/2024 1:30 PM EDT Appointment [facility] 1 [address] [place] [address] 12/01/2024 2:00 PM EDT Appointment [facility] 1 [address] [place] [address] 12/06/2024 11:40 AM EDT Appointment [facility] CC Radiation [address] [facility] [id number] [place] [address] Haven Blum, ELECTRONICS TECHNOLOGY INSTRUCTOR 800 [facility] [address] [place] [address] 01/19/2025 9:30 AM EDT Appointment P[facility] S Radiology [address], [address]st [place] [address] 01/19/2025 10:45 AM EDT Office Visit [place] [facility] [address], [address]st [place] [address] Abhilash Bangura MD [address] [place] [address] 03/08/2025 1:00 PM EDT Office Visit [facility] [address] [place] [address] Teresita Oconnell MD [address] [place] [address] Health Maintenance Due Date Last Done Comments [facility]-/Child/Adol SDOH Screenings 1960 Diabetes: Dental Exam 1970 [...] - Risk 60-74 years 1-dose series) 2020 [id number] Vaccine (9 - Mixed Product risk 2023- [...] this topic Medical Devices Implanted Type Area School Athletic Director Device Identifier Shelf Expiration Date Model / Serial / Lot Graft Dura Repair 2x2 Synthe[employer] - [id number] Implanted:Qty: 1 on 09/05/2024 by Abhilash Bangura MD at [facility]-[id number] 03/17/2026 [id number]. [id number] / / [id number] Screw Ti Matrixneuro Selfdrill 4mm - S. - [id number] Implanted:Qty: 12 on 09/05/2024 by Abhilash Bangura MD at [facility] [place]-[id number] 09/05/2025 [id number] / . / Plate, 2 Hole Low Profile - S. - [id number] Implanted:Qty: 2 on 09/05/2024 by Abhilash Bangura MD at [facility]-[id number] 09/05/2025 [id number] / . / Cover, Neuro [place] [employer] 17mm - S. - [id number] Implanted:Qty: 2 on 09/05/2024 by Abhilash Bangura MD at [facility]-09/05/2025 [id number] / . / Procedures Procedure Name [...] ECG ADULT STAT 10/25/2024 10:12 AM EDT [facility] ED POCUS PROCDOC Routine 10/25/2024 9:51 AM EDT [facility] ED POCUS PROCDOC Routine [...] ADULT STAT 10/12/2024 3:39 PM EDT CARIS ND TUMOR SEEK HYBRID + IHCS AND OTHER [...] ANESTHESIA PLACEHOLDER Routine 09/05/2024 7:43 AM EDT [place] AN ELECTIVE ENDOTRACHEAL AIRWAY Routine 09/05/2024 7:43 AM EDT POCT GLUCOSE METER UNSOLICITED RESULTS Routine 09/05/2024 7:22 AM EDT [place] EXCIS SUPRATENT BRAIN TUMOR 09/05/2024 7:14 AM [...] of118 resultswithin the time period is included. POCT Glucose 178(H) 74 - 99 mg/dL [...] Comment 11/22/2024 11:52 AM EDT [facility]ALTHCARE LAB Physician/Internist ID Lisa Veliz 11/22/2024 11:52 AM EDT HEALTHCARE LAB Device ID [id number] 11/22/2024 11:52 AM EDT [facility] Specimen Type POC Capillary 11/22/2024 11:52 AM EDT HEALTHCARE LAB Blood Capillary blood specimen / Unknown 11/22/2024 11:50 AM EDT 11/22/2024 11:52 AM EDT us Regina Ivey MD LAB POINT OF CARE TE ST DOCKED DEVICE UNSOLICITED RESULTS Final Result [facility] [address] [place] [id number] * Type and screen (11/22/2024 11:30 AM EDT) Only the most recent of4 resultswithin the time period is included. ABO/Rh O Positive 11/22/2024 10:58 AM EDT BLOOD BANK Antibody Screen Negative 11/22/2024 10:58 AM EDT BLOOD BANK Specimen Expiration 11/25/2024 23:59 11/22/2024 10:58 AM EDT BLOOD BANK Blood Venous blood specimen / Unknown Venipuncture / Unknown 11/22/2024 11:30 AM EDT 11/22/2024 11:36 AM EDT Regina Ivey MD LAB BLOOD BANK TEST ORDERABLES Final Result Performing Organization Address [facility] de Phone Number BLOOD BANK [address] [place] [address], * Prepare Leukocyte Reduced RBC: 1 Units, Irradiated, Leukocyte reduced (CMV reduced risk) (11/22/2024 10:58 AM EDT) Only the most recent of3 resultswithin the time period is included. Product Code R7431F77 CH BLOO D BANK Dispense Status Transfused BLOOD BANK Blood Expiration Date [id number] BLOOD BANK Unit Number [id number] B LOOD BANK Product Blood Type 5100 BLOOD BANK Blood Type O+ BLOOD BANK Crossmatch Compatible BLOOD BANK Other Regina Ivey MD BLOOD BANK PRODUCT ORDERABLES F inal Result Performing Organization Address [facility] de Phone Number BLOOD BANK [address] [place] [address], * (ABNORMAL) CBC W/O Differential (11/22/2024 2:44 AM EDT) Only the most recent of4 resultswithin the time period is included. WBC Count 6.07 3.70 - 10.30 10*3/uL LAB HEMATOLOGY METHOD 11/22/2024 3:04 AM EDT [facility] RBC Count 2.45(L) 3.90 - 5.20 10*6/uL LAB HEMATOLOGY METHOD 11/22/2024 3:04 AM EDT [facility] HGB 7.3(L) 11.2 - 15.7 g/dL LAB HEMATOLOGY METHOD 11/22/2024 3:04 AM EDT [facility] HCT 23.3(L) 34.0 - 45.0 % LAB HEMATOLOGY METHOD 11/22/2024 3:04 AM EDT [facility] Platelet Count 32(L) 155 - 369 10*3/uL LAB HEMATOLOGY METHOD 11/22/2024 3:04 AM EDT [facility] MCV 95 79 - 98 fL LAB HEMATOLOGY METHOD 11/22/2024 3:04 AM EDT [facility] MCH 29.8 26.0 - 32.0 pg LAB HEMATOLOGY METHOD 11/22/2024 3:04 AM EDT [facility] MCHC 31.3 30.7 - 35.5 g/dL LAB HEMATOLOGY METHOD 11/22/2024 3:04 AM EDT [facility] RDW 20.4(H) 11.5 - 14.5 % LAB HEMATOLOGY METHOD 11/22/2024 3:04 AM EDT [facility] MPV 11.6 8.8 - 12.5 fL LAB HEMATOLOGY METHOD 11/22/2024 3:04 AM EDT [facility] nRBC 0.7(H) <=0.0 per 100 WBCs LAB HEMATOLOGY METHOD 11/22/2024 3:04 AM EDT [facility] Blood Venous blood specimen / Unknown Venipuncture / Unknown 11/22/2024 2:44 AM EDT 11/22/2024 2:50 AM EDT us Regina Ivey MD LAB BLOOD ORDERABLES Final Resu lt [facility] [address] [place] [address] * (ABNORMAL) Basic metabolic panel (11/22/2024 2:44 AM EDT) Only the most recent of11 resultswithin the time period is included. Glucose, Plasma 210(H) 74 - 99 mg/dL 11/22/2024 3:19 AM EDT [facility] BUN, Plasma 6(L) 8 - 23 mg/dL 11/22/2024 3:19 AM EDT [facility] Creatinine, Plasma 0.61 0.60 - 1.10 mg/dL 11/22/2024 3:19 AM EDT [facility] BUN/Creatinine Ratio 10 11/22/2024 3:19 AM EDT [facility] Sodium, Plasma 141 136 - 145 mmol/L 11/22/2024 3:19 AM EDT [facility] Potassium, Plasma 3.5(L) 3.6 - 4.9 mmol/L 11/22/2024 3:19 AM EDT [facility] Chloride, Plasma 104 97 - 107 mmol/L 11/22/2024 3:19 AM EDT [facility] CO2, Plasma 24 22 - 29 mmol/L 11/22/2024 3:19 AM EDT [facility] Anion Gap 13 6 - 16 mmol/L 11/22/2024 3:19 AM EDT [facility] Total Calcium, Plasma 8.0(L) 8.9 - 10.2 mg/dL 11/22/2024 3:19 AM EDT [facility] eGFRcr 100.6 mL/min/1.7 3m*2 11/22/2024 3:19 AM EDT [facility] Comment:Reported eGFRcr in m L/min/1.73m2 is based the CKD-EPI 2020 equation that does not use a race coefficient. Blood Venous blood specimen / Unknown Venipuncture / Unknown 11/22/2024 2:44 AM EDT 11/22/2024 2:49 AM EDT us Regina Ivey MD LAB BLOOD ORDERABLES Final Resu lt [facility] [address] [place] [address] * ECG Adult (11/20/2024 7:20 AM EDT) Only the most recent of12 resultswithin the time period is included. EKG DIAGNOSIS CLASS Abnormal MUSE ECG Ventricular Rate 148 BPM MUSE ECG Atrial Rate 340 BPM MUSE ECG QRSD Interval 90 ms MUSE ECG QT Interval 298 ms MUSE ECG QTC Interval 467 ms MUSE ECG P [place] 110 degrees MUSE ECG R [place] 16 degrees MUSE ECG T Wave [place] 82 degrees MUSE ECG Diagnosis Atrial flutter with variable AV block MUSE ECG Diagnosis Nonspecific ST and T wave abnormality MUSE ECG Diagnosis Abnormal ECG MUSE ECG Diagnosis Compared to last ECG MUSE ECG Diagnosis atrial flutter has replaced sinus rhythm MUSE ECG Diagnosis MUSE ECG Diagnosis Confirmed by Leeroy Herbert ([id number]) on 11/20/2024 12:49:05 PM MUSE ECG 11/20/2024 7:20 AM EDT 11/20/2024 12:49 PM EDT Regina Ivey MD ECG ORDERABLES Final Result Performing Organization Address [facility] Co de Phone Number MUSE ECG * (ABNORMAL) Hemoglobin and Hematocrit, Blood (11/20/2024 12:57 AM EDT) Only the most recent of3 resultswithin the time period is included. HGB 7.9(L) 11.2 - 15.7 g/dL LAB HEMATOLOGY METHOD 11/20/2024 1:18 AM EDT [facility] HCT 24.8(L) 34.0 - 45.0 % LAB HEMATOLOGY METHOD 11/20/2024 1:18 AM EDT [facility] Blood Venous blood specimen / Unknown Venipuncture / Unknown 11/20/2024 12:57 AM EDT 11/20/2024 1:10 AM EDT Regina Ivey MD LAB BLOOD ORDERABLES Final Resu lt [facility] [address] [place] [address] * (ABNORMAL) CBC and Differential (11/20/2024 12:57 AM EDT) Only the most recent of18 resultswithin the time period is included. WBC Count 5.47 3.70 - 10.30 10*3/uL LAB HEMATOLOGY METHOD 11/20/2024 2:38 AM EDT [facility] RBC Count 2.71(L) 3.90 - 5.20 10*6/uL LAB HEMATOLOGY METHOD 11/20/2024 2:38 AM EDT [facility] HGB 7.9(L) 11.2 - 15.7 g/dL LAB HEMATOLOGY METHOD 11/20/2024 2:38 AM EDT [facility] HCT 24.8(L) 34.0 - 45.0 % LAB HEMATOLOGY METHOD 11/20/2024 2:38 AM EDT [facility] Platelet Count 44(L) 155 - 369 10*3/uL LAB HEMATOLOGY METHOD 11/20/2024 2:38 AM EDT [facility] MCV 92 79 - 98 fL LAB HEMATOLOGY METHOD 11/20/2024 2:38 AM EDT [facility] Comment:Results inconsistent with previous lab findings. MCH 29.2 26.0 - 32.0 pg LAB HEMATOLOGY METHOD 11/20/2024 2:38 AM EDT [facility] MCHC 31.9 30.7 - 35.5 g/dL LAB HEMATOLOGY METHOD 11/20/2024 2:38 AM EDT [facility] RDW 20.9(H) 11.5 - 14.5 % LAB HEMATOLOGY METHOD 11/20/2024 2:38 AM EDT [facility] MPV 10.3 8.8 - 12.5 fL LAB HEMATOLOGY METHOD 11/20/2024 2:38 AM EDT [facility] nRBC 1.3(H) <=0.0 per 100 WBCs LAB HEMATOLOGY METHOD 11/20/2024 2:38 AM EDT [facility] Differential Type Automated LAB HEMATOLOGY METHOD 11/20/2024 2:38 AM EDT [facility] Neutrophils % 70 % LAB HEMATOLOGY METHOD 11/20/2024 2:38 AM EDT [facility] Lymphocytes % 14 % LAB HEMATOLOGY METHOD 11/20/2024 2:38 AM EDT [facility] Monocytes % 7 % LAB HEMATOLOGY METHOD 11/20/2024 2:38 AM EDT [facility] Eosinophils % 3 % LAB HEMATOLOGY METHOD 11/20/2024 2:38 AM EDT [facility] Basophils % 1 % LAB HEMATOLOGY METHOD 11/20/2024 2:38 AM EDT [facility] Immature Granulocytes % 5 % LAB HEMATOLOGY METHOD 11/20/2024 2:38 AM EDT [facility] Neutrophils Absolute 3.82 1.60 - 6.10 10*3/uL LAB HEMATOLOGY METHOD 11/20/2024 2:38 AM EDT [facility] Lymphocytes Absolute 0.75(L) 1.20 - 3.90 10*3/uL LAB HEMATOLOGY METHOD 11/20/2024 2:38 AM EDT [facility] Monocytes Absolute 0.39 0.30 - 0.90 10*3/uL LAB HEMATOLOGY METHOD 11/20/2024 2:38 AM EDT [facility] Eosinophils Absolute 0.16 0.00 - 0.50 10*3/uL LAB HEMATOLOGY METHOD 11/20/2024 2:38 AM EDT [facility] Basophils Absolute 0.07 0.00 - 0.10 10*3/uL LAB HEMATOLOGY METHOD 11/20/2024 2:38 AM EDT [facility] Immature Granulocytes Absolute 0.28(H) 0.00 - 0.06 10*3/uL LAB HEMATOLOGY METHOD 11/20/2024 2:38 AM EDT [facility] Blood Venous blood specimen / Unknown Venipuncture / Unknown 11/20/2024 12:57 AM EDT 11/20/2024 1:10 AM EDT Narrative [facility] - 11/20/2024 2:38 AM EDT Therapeutic decision making should be based on absolute values, rather than percentages. us Regina Ivey MD LAB BLOOD ORDERABLES Final Resu lt [facility] [address] [place] [address] * (ABNORMAL) Phosphorus, Plasma (11/20/2024 12:57 AM EDT) Only the most recent of6 resultswithin the time period is included. Phosphorus, Plasma 2.1(L) 2.5 - 4.5 mg/dL 11/20/2024 1:39 AM EDT [facility] Blood Venous blood specimen / Unknown Venipuncture / Unknown 11/20/2024 12:57 AM EDT 11/20/2024 1:10 AM EDT Regina Ivey MD LAB BLOOD ORDERABLES Final Resu lt Performing Organization Address City/[facility]/ZIP Co de Phone Number [facility] [address] [place] [address] * (ABNORMAL) Magnesium, Plasma (11/20/2024 12:57 AM EDT) Only the most recent of14 resultswithin the time period is included. Magnesium, Plasma 1.7(L) 1.9 - 2.4 mg/dL 11/20/2024 1:39 AM EDT [facility] Blood Venous blood specimen / Unknown Venipuncture / Unknown 11/20/2024 12:57 AM EDT 11/20/2024 1:10 AM EDT us Regina Ivey MD LAB BLOOD ORDERABLES Final Resu lt Performing Organization Address [facility] Co de Phone Number [facility] [address] [place] [address] * Wilbur auris Surveillance by PCR (11/19/2024 7:58 PM EDT) Only the most recent of2 resultswithin the time period is included. Pathologist [facility] [place] Wilbur auris PCR Result Not Detected Not Detected 11/20/2024 1:19 PM EDT [facility] Swab (Axilla and Groin) Non-blood Collection / Unknown 11/19/2024 7:58 PM EDT 11/19/2024 8:33 PM EDT Narrative [facility] - 11/20/2024 1:19 PM EDT This PCR assay was developed and its performance characteristics determined by [facility] as appropriate for clinical purposes. This assay has not been cleared or approved by the FDA, but is performed in a CLIA regulated laboratory that is qualified to perform high-complexity testing. us Regina Ivey MD LAB MICROBIOLOGY - GENERAL [facility] Final Result Performing Organization Address City/[facility]/ZIP Co de Phone Number [facility] [address] [place] [address] * Lactate, venous (11/19/2024 3:59 AM EDT) Only the most recent of3 resultswithin the time period is included. Lactate, Venous, Whole Blood 1.6 0.5 - 2.2 mmol/L LAB HEMATOLOGY METHOD 11/19/2024 4:08 AM EDT [facility] Blood Venous blood specimen / Unknown Venipuncture / Unknown 11/19/2024 3:59 AM EDT 11/19/2024 4:07 AM EDT us Jose David Ponce MD LAB BLOOD ORDERABLES Final Resu lt Performing Organization Address City/[facility]/ZIP Co de Phone Number [facility] [address] [place] [address] * Urine Meek Panel (11/19/2024 3:37 AM EDT) Only the most recent of3 resultswithin the time period is included. Extra Reflex urine culture not indicated 11/19/2024 12:01 PM EDT [facility] MD LAB URINE ORDERABLES Final Resu lt [facility] [address] [place] [address] * (ABNORMAL) Urinalysis with reflex microscopic (Culture NOT Included) (11/19/2024 3:37 AM EDT) Only the most recent of4 resultswithin the time period is included. Color, Urine Yellow LAB URINALYSIS - AUTOMATED METHOD 11/19/2024 4:09 AM EDT [facility] Clarity, Urine Clear LAB URINALYSIS - AUTOMATED METHOD 11/19/2024 4:09 AM EDT [facility] Spec Simpson, Urine >1.030(H) 1.005 - 1.030 LAB URINALYSIS - AUTOMATED METHOD 11/19/2024 4:09 AM EDT [facility] pH, Urine 6.0 5.0 - 8.0 LAB URINALYSIS - AUTOMATED METHOD 11/19/2024 4:09 AM EDT [facility] Protein, Urine Negative Negative mg/dL LAB URINALYSIS - AUTOMATED METHOD 11/19/2024 4:09 AM EDT [facility] Glucose, Urine >=1000(A) Negative mg/dL LAB URINALYSIS - AUTOMATED METHOD 11/19/2024 4:09 AM EDT [facility] Ketones, Urine Negative Negative mg/dL LAB URINALYSIS - AUTOMATED METHOD 11/19/2024 4:09 AM EDT [facility] Blood, Urine Negative Negative LAB URINALYSIS - AUTOMATED METHOD 11/19/2024 4:09 AM EDT [facility] Bilirubin, Urine Negative Negative LAB URINALYSIS - AUTOMATED METHOD 11/19/2024 4:09 AM T [facility] Urobilinogen, Urine 0.2 0.2 to 1.0 mg/dL LAB URINALYSIS - AUTOMATED METHOD 11/19/2024 4:09 AM EDT [facility] Leukocytes, Urine Negative Negative LAB URINALYSIS - AUTOMATED METHOD 11/19/2024 4:09 AM T [facility] Nitrite, Urine Negative Negative LAB URINALYSIS - AUTOMATED METHOD 11/19/2024 4:09 AM T [facility] Urine Urine specimen obtained by clean catch procedure / Unknown Non-blood Collection / Unknown 11/19/2024 3:37 AM EDT 11/19/2024 4:06 AM EDT us Jose David Ponce MD LAB URINE ORDERABLES Final Resu lt Performing Organization Address [facility] Co de Phone Number [facility] [address] [place] [address] * (ABNORMAL) Iron & Total Iron Binding Capacity, Plasma (Includes Transferrin) (11/19/2024 12:51 AM EDT) Iron, Plasma 67 30 - 160 ug/dL 11/19/2024 4:08 AM EDT [facility] Transferrin, Plasma 182(L) 200 - 360 mg/dL 11/19/2024 4:08 AM EDT [facility] Total Iron Binding Capacity, Plasma 228(L) 240 - 450 ug/mL 11/19/2024 4:08 AM EDT [facility] Transferrin Saturation 29 14 - 50 % 11/19/2024 4:08 AM EDT [facility] Blood Venous blood specimen / Unknown Venipuncture / Unknown 11/19/2024 12:51 AM EDT 11/19/2024 12:53 AM EDT us Regina Ivey MD LAB BLOOD ORDERABLES Final Resu lt Performing Organization Address [facility] [place] [address] * Anti Xa Level Unfractionated Heparin (11/19/2024 12:51 AM EDT) Only the most recent of2 resultswithin the time period is included. Anti Xa Level Unfractionated Heparin <0.11 <1.00 IU/mL 11/19/2024 1:10 AM EDT [facility] Blood Venous blood specimen / Unknown Venipuncture / Unknown 11/19/2024 12:51 AM EDT 11/19/2024 12:53 AM EDT Narrative [facility] - 11/19/2024 1:10 AM EDT Therapeutic Range: UFH Full Dose and ACS/ND protocols*: 0.30 - 0.70 IU/mL UFH Low Dose protocol*: 0.25 - 0.50 IU/mL UFH prophylaxis: Not established us Jose David Ponce MD LAB BLOOD ORDERABLES Final Resu lt [facility] [address] [place] [address] * (ABNORMAL) CMP (11/19/2024 12:51 AM EDT) Only the most recent of11 resultswithin the time period is included. Glucose, Plasma 130(H) 74 - 99 mg/dL 11/19/2024 1:23 AM EDT [facility] BUN, Plasma 19 8 - 23 mg/dL 11/19/2024 1:23 AM EDT [facility] Creatinine, Plasma 1.08 0.60 - 1.10 mg/dL 11/19/2024 1:23 AM EDT [facility] BUN/Creatinine Ratio 18 11/19/2024 1:23 AM EDT [facility] Sodium, Plasma 136 136 - 145 mmol/L 11/19/2024 1:23 AM EDT [facility] Potassium, Plasma 3.4(L) 3.6 - 4.9 mmol/L 11/19/2024 1:23 AM EDT [facility] Chloride, Plasma 99 97 - 107 mmol/L 11/19/2024 1:23 AM EDT [facility] CO2, Plasma 23 22 - 29 mmol/L 11/19/2024 1:23 AM EDT [facility] Anion Gap 14 6 - 16 mmol/L 11/19/2024 1:23 AM EDT [facility] Total Calcium, Plasma 9.1 8.9 - 10.2 mg/dL 11/19/2024 1:23 AM EDT [facility] Total Protein 6.4 6.3 - 7.9 g/dL 11/19/2024 1:23 AM EDT [facility] Albumin, Plasma 3.5 3.5 - 5.2 g/dL 11/19/2024 1:23 AM EDT [facility] AST, Plasma 12 10 - 35 U/L 11/19/2024 1:23 AM EDT [facility] ALT, Plasma 19 10 - 35 U/L 11/19/2024 1:23 AM EDT [facility] Alkaline Phosphatase, Plasma 99 46 - 142 U/L 11/19/2024 1:23 AM EDT [facility] Total Bilirubin, Plasma 0.7 0.2 - 1.1 mg/dL 11/19/2024 1:23 AM EDT [facility] eGFRcr 57.8 mL/min/1.7 3m*2 11/19/2024 1:23 AM EDT [facility] Comment:Reported eGFRcr in m L/min/1.73m2 is based the CKD-EPI 2020 equation that does not use a race coefficient. Blood Venous blood specimen / Unknown Venipuncture / Unknown 11/19/2024 12:51 AM EDT 11/19/2024 12:53 AM EDT us Jose David Ponce MD LAB BLOOD ORDERABLES Final Resu lt [facility] [address] [place] [address] * CT MSK OUTSIDE IMAGES (11/18/2024 8:50 [...] Resistant Organisms Isolated 11/18/2024 9:10 AM EDT [facility] Swab (Nares and Carole Rectal) Non-blood Collection / Unknown 11/16/2024 1:41 AM EDT 11/16/2024 7:14 AM EDT Narrative [facility] - 11/18/2024 9:10 AM EDT This test was developed and its performance characteristics determined by the [facility]. Although the media is FDA-approved, it is not FDA-approved for all specimen types submitted. The FDA has determined that such clearance or approval is not necessary. This test is used for surveillance purposes. It should not be regarded as investigational or for research. The [facility] is certified under the Clinical Laboratory Improvement Amendments of 1988 (CLIA-88) as qualified to perform high complexity clinical laboratory testing. Giovany Vance MD LAB MICROBIOLOGY - GENERAL O RDERABLES Final Result Performing Organization Address [facility] [place] [address] * Urinalysis Microscopic Examination (11/16/2024 1:14 AM EDT) Urine Urine specimen obtained by clean catch procedure / Unknown Non-blood Collection / Unknown 11/16/2024 1:14 AM EDT 11/16/2024 1:21 AM EDT Ashu Ortiz MD LAB URINE ORDERABLES Final Result Performing Organization Address [facility] [place] [address] * Drug Abuse Screen, Urine (11/16/2024 1:14 AM EDT) Amphetamine Screen Urine Negative Cutoff: 500 ng/mL 11/16/2024 1:42 AM EDT [facility] Benzodiazepines Screen Urine Negative Cutoff: 200 ng/mL 11/16/2024 1:42 AM EDT [facility] Cannabinoid Screen Urine Negative Cutoff: 50 ng/mL 11/16/2024 1:42 AM EDT [facility] Cocaine Screen Urine Negative Cutoff: 300 ng/mL 11/16/2024 1:42 AM EDT [facility] Barbiturate Screen Urine Negative Cutoff: 200 ng/mL 11/16/2024 1:42 AM EDT [facility] Opiate Screen Urine Negative Cutoff: 300 ng/mL 11/16/2024 1:42 AM EDT [facility] Methadone Screen Urine Negative Cutoff: 300 ng/mL 11/16/2024 1:42 AM EDT [facility] Buprenorphine Screen Urine Negative Cutoff: 10 ng/mL 11/16/2024 1:42 AM EDT [facility] Fentanyl Screen Urine Negative Cutoff: 1 ng/mL 11/16/2024 1:42 AM EDT [facility] Oxycodone Screen Urine Negative Cutoff: 100 ng/mL 11/16/2024 1:42 AM EDT [facility] Urine Urine specimen obtained by clean catch procedure / Unknown Non-blood Collection / Unknown 11/16/2024 1:14 AM EDT 11/16/2024 1:21 AM EDT us Ashu Ortiz MD LAB URINE ORDERABLES Final Result [facility] [address] [place] [address] * CT Venogram Head (11/15/2024 9:21 PM [...] Total DLP (Dose-Length Product): 1926.17 mGy.cm (accession [id number]), 1926.17 mGy.cm (accession [id number]). Please note: The reported value represents the [...] Total DLP (Dose-Length Product): 1926.17 mGy.cm (accession [id number]),1926.17 mGy.cm (accession [id number]). Please note: The reported valuerepresents the total [...] Total DLP (Dose-Length Product): 1926.17 mGy.cm (accession [id number]), 1926.17 mGy.cm (accession [id number]). Please note: The reported value represents the [...] Total DLP (Dose-Length Product): 1926.17 mGy.cm (accession [id number]),1926.17 mGy.cm (accession [id number]). Please note: The reported valuerepresents the total [...] LAB HEMATOLOGY METHOD 11/15/2024 8:21 PM EDT [facility] Bicarbonate, Calculated, Venous 29(H) 22 - 26 mmol/L LAB HEMATOLOGY METHOD 11/15/2024 8:21 PM EDT [facility] Base Excess, Venous 3.2(H) -2.0 - 3.0 mmol/L LAB HEMATOLOGY METHOD 11/15/2024 8:21 PM EDT [facility] Lactate, Venous, Whole Blood 1.8 0.5 - 2.2 mmol/L LAB HEMATOLOGY METHOD 11/15/2024 8:21 PM EDT [facility] Blood Venous blood specimen / Unknown Venipuncture / Unknown 11/15/2024 8:06 PM EDT 11/15/2024 8:20 PM EDT us Ashu Ortiz MD LAB BLOOD ORDERABLES Final Result [facility] [address] [place] [address] * Ethyl Alcohol Plasma (11/15/2024 6:51 PM EDT) Pathologist [facility] Ethanol Plasma <10 <10 mg/dL 11/15/2024 7:19 PM EDT [facility] Blood Venous blood specimen / Unknown Venipuncture / Unknown 11/15/2024 6:51 PM EDT 11/15/2024 6:56 PM EDT Narrative [facility] - 11/15/2024 7:19 PM EDT Enzymatic Assay: Performed on Nayeli Linnette. Ashu Ortiz MD LAB BLOOD ORDERABLES Final Result Performing Organization Address City/[facility]/ZIP Co de Phone Number [facility] [address] [place] [address] * APTT (PTT) (11/15/2024 6:51 PM EDT) Pathologist [facility] aPTT 28 25 - 35 sec 11/15/2024 7:14 PM EDT [facility] Blood Venous blood specimen / Unknown Venipuncture / Unknown 11/15/2024 6:51 PM EDT 11/15/2024 6:56 PM EDT Ashu Ortiz MD LAB BLOOD ORDERABLES Final Result Performing Organization Address [facility] [place] [address] * (ABNORMAL) PT-INR (11/15/2024 6:51 PM EDT) Only the most recent of4 resultswithin the time period is included. Pathologist [facility] Prothrombin Time 19.5(H) 12.0 - 14.3 sec 11/15/2024 7:14 PM EDT [facility] INR 1.7(H) 0.9 - 1.1 11/15/2024 7:14 PM EDT [facility] Blood Venous blood specimen / Unknown Venipuncture / Unknown 11/15/2024 6:51 PM EDT 11/15/2024 6:56 PM EDT Narrative [facility] - 11/15/2024 7:14 PM EDT OPTIMAL INR RANGES FOR PATIENT ON ORAL ANTICOAGULANT THERAPY Prevention of venous thromboembolism INR 2.0 to 3.0 In patients with heart disease: Atrial fibrillation INR 2.0 to 3.0 Valvular heart disease INR 2.0 to 3.0 Tissue heart valves INR 2.0 to 3.0 Mechanical prosthetic valves INR 2.5 to 3.5 Prevention of recurrent ND INR 2.5 to 3.5 Ashu Ortiz MD LAB BLOOD ORDERABLES Final Result [facility] [address] [place] [address] * Test Qualitative Plasma (11/15/2024 6:51 PM EDT) Test Negative Negative 11/15/2024 7:47 PM EDT [facility] Blood Venous blood specimen / Unknown Venipuncture / Unknown 11/15/2024 6:51 PM EDT 11/15/2024 6:56 PM EDT Narrative [facility] - 11/15/2024 7:47 PM EDT Reference Range: Males and non- females: Negative. Ashu Ortiz MD LAB [place] [address] * Gold Top (11/15/2024 6:41 PM EDT) Extra Hold for add-ons 11/15/2024 9:01 PM EDT [facility] Comment:Auto resulted. Blood Venous blood specimen / Unknown 11/15/2024 6:41 PM EDT 11/15/2024 6:56 PM EDT Ashu Ortiz MD LAB [place] [address] * XR OUTSIDE IMAGES (11/15/2024 2:42 PM EDT) Anatomical Region Laterality Modality Radiographic Carolyne ging 11/15/2024 2:42 PM EDT us Regina Katz ELECTRONICS TECHNOLOGY INSTRUCTOR IMG XR PROCEDURES Final Res ult * XR MSK OUTSIDE IMAGES (11/15/2024 2:42 PM EDT) Only the most recent of3 resultswithin the time period is included. Anatomical Region Laterality Modality Radiographic Carolyne ging 11/15/2024 2:42 PM EDT us Regina Tania Katz ELECTRONICS TECHNOLOGY INSTRUCTOR IMG XR PROCEDURES Final Res ult * CT NEURO OUTSIDE IMAGES (11/15/2024 2:38 PM EDT) Anatomical Region Laterality Modality Computed Tomogra phy 11/15/2024 2:38 PM EDT us Regina Katz ELECTRONICS TECHNOLOGY INSTRUCTOR IMG CT PROCEDURES Final Res ult * [facility] [address] [place] [address] * (ABNORMAL) Manual Differential (10/31/2024 12:21 AM [...] [facility] [address] [place] [address] * Rad Onc Aria Session Summary (10/28/2024 [...] Oncology RADIATION ONCJOSELITO GY ORDERABLES Final Result JESUSITAA RADIATION ONCOLOGY * Rad Onc Aria Session [...] Oncology RADIATION ONCJOSELITO GY ORDERABLES Final Result JESUSITAA RADIATION ONCOLOGY * Rad Onc Aria Session [...] [facility] [address] [place] [address] * (ABNORMAL) Respiratory Culture and Gram Stain (10/26/2024 5:37 AM EDT) Pathologist [facility] Culture Light Growth 10/31/2024 12:21 PM EDT [facility] Culture Pseudomonas aeruginosa MDR, INTERLIBRARY LOAN SERVICES LIBRARIAN(AA) DONAVAN 10/31/2024 12:21 PM EDT [facility] Comment: This isolate has been identified using the FDA Approved [employer] [place] System Tobramycin no longer reported. If [...] Organism Antibiotic Method Susceptibility Pseudomonas aeruginosa MDR, INTERLIBR[employer] SERVICES LIBRARIAN Aztreonam DONAVAN 8 ug/ml: Susceptible Pseudomonas aeruginosa MDR, INTER[employer] SERVICES LIBRARIAN Cefepime DONAVAN 16 ug/ml: Resistant Pseudomonas aeruginosa MDR, INTER[employer] LO[employer] SERVICES LIBRARIAN Levofloxacin DONAVAN >4 ug/ml: Resistant Pseudomonas aeruginosa MDR, INTER[employer] SERVICES LIBRARIAN Piperacillin/Tazobactam DONAVAN 64/4 ug/ml: Intermediate Pseudomonas aeruginosa MDR, INTERLIBRARY LOAN SERVICES LIBRARIAN Meropenem ETEST 32.0 ug/ml: Resistant Comment:The previously repor samaria component Tobramycin is no longer being reported. us Robert Amin MD LAB MICROBIOLOGY - GENERAL ORD ERABLES Edited Result - Final Performing Organization Address City/[facility]/ZIP Co de Phone Number [facility] [address] [place] [address] * Blood Culture (Aerobic/Anaerobet Set) (10/26/2024 3:03 [...] RAL ORDERABLES Final Result Performing Organization Address City/[facility]/[place] [address] * Methicillin Resistant Staphylococcus aureus (MRSA) by [...] [facility] [address] [place] [address] * Rad Onc Aria Session Summary (10/25/2024 2:01 PM EDT) Pathologist [facility] Course ID [id number] ARIA RADIATION ONCOLOGY Course [...] [facility] [address] [place] [address] * CT Angio Pulmonary Embolism (10/25/2024 11:02 [...] MICROBIOLOGY - GENE RAL ORDERABLES Final Result [facility] [facility] [address] [place] [address] * Nasopharyngeal Respiratory Panel (10/25/2024 10:42 AM EDT) Only the most recent of2 resultswithin the time period is included. Pathologist [facility] [place] Nasopharyngeal Respiratory PCR Interpretation Not Detected for [...] Respiratory PCR Panel is performed using the [employer] ePlex instrument. This test is FDA approved for use with Nasopharyngeal swabs only. This test is used for clinical purposes. It should not be regarded as investigational or for research. The [facility] Clinical Microbiology Laboratory is certified under the Clinical Laboratory Improvement Amendments of 1988 (CLIA-88) as qualified to perform high complexity clinical laboratory testing. us West Bobby MD LAB MICROBIOLOGY - [facility] ORDERABLES Final Result [facility] [address] [place] [address] * (ABNORMAL) Troponin now and 120 min (10/25/2024 10:28 AM EDT) Only the most recent of2 resultswithin the time period is included. Pathologist [facility] [place] Troponin T, High Sensitivity, 0 Hour 21(H) <14 ng/L 10/25/2024 10:59 AM EDT [facility] Blood Venous blood specimen / Unknown Venipuncture / Unknown 10/25/2024 10:28 AM EDT 10/25/2024 10:35 AM EDT West Bobby MD LAB BLOOD ORDERABLES Fi nal Result Performing Organization Address City/[facility]/ZIP Co de Phone Number [facility] [address] [place] [address] * (ABNORMAL) BNP (10/25/2024 10:28 AM EDT) [...] ORDERABLES Fi nal Result Performing Organization Address City/[facility] Co de Phone Number [facility] [address] [place] [address] * (ABNORMAL) Blood gas panel, venous (10/25/2024 [...] ORDERABLES Fi nal Result Performing Organization Address City/State/[facility] Co de Phone Number [facility] [address] [place] [address] * [facility] ED POCUS PROCDOC (10/25/2024 9:51 AM [...] IN CLINIC/BEDSIDE ORDER SOLOMON Final Result * [facility] ED POCUS PROCDOC (10/25/2024 9:51 AM [...] GY ORDERABLES Final Result Performing Organization Address City/[facility]/ZIP Co de Phone Number [facility] * (ABNORMAL) Vancomycin, Trough, Plasma [...] MD LAB BLOOD ORDERABLES F inal Result [facility] [address] [place] [address] * (ABNORMAL) Vancomycin, Peak, Plasma Please draw [...] PM EDT 10/14/2024 2:39 PM EDT Narrative [facility] - 10/14/2024 3:56 PM EDT Therapeutic Peak level: 20-40ug/mL Supra-therapeutic Peak level: >40 ug/mL us Hyacinth Perkins MD LAB BLOOD ORDERABLES Final Res ult [facility] [address] [place] [address] * IR Lumbar Puncture (10/14/2024 10:29 AM [...] AM COMPARISON: MR head reviewed from 10/09/24. STENOCAPTIONER: Lisa Romano PA-C SECONDARY EGG FACTORY WORKER: Dr. Gaby Ponce CONTRAST: 0 cc MEDICATIONS: [...] AM COMPARISON: MR head reviewed from 10/09/24. STENOCAPTIONER: Lisa Romano PA-C SECONDARY EGG FACTORY WORKER: Dr. Gaby Ponce CONTRAST: 0 cc MEDICATIONS: [...] [facility] [address] [place] [address] * CSF Cell Count w/ Manual Differential [...] 10:24 AM EDT 10/14/2024 10:59 AM EDT Result Arlet Perkins MD LAB BODY FLUIDS AND STOOLS ORD ERABLES Final Result [facility] [address] [place] [address] * Fungal Culture, Cerebrospinal Fluid (CSF) and [...] [facility] [address] [place] [address] * Lactate Dehydrogenase Total, Body Fluid (SO) (10/14/2024 10:24 AM EDT) Lactate Dehydrogenase Total, Body Fluid 21 U/L 10/16/2024 12:07 AM EDT [facility] LDH Fluid Source CSF 10/17/19 12:07 AM EDT [facility] ([facility]) Cerebrospinal Fluid Non-blood Collection / Unknown 10/14/2024 10:24 AM EDT 10/14/2024 11:01 AM EDT Narrative [facility] (ALEX) - 10/16/2024 12:07 AM EDT INTERPRETIVE INFORMATION: Lactate Dehydrogenase Total, Body Fluid For information on body fluid reference ranges and/or interpretive guidance visit [email or web address]/ This test was developed and its performance characteristics determined by [employer]. It has not been cleared or approved by the US Food and Drug Administration. This test was performed in a CLIA certified laboratory and is intended for clinical purposes. Performed By: [facility] [address] [place] [address] Automation And Controls Manager: Manuel Mas MD, PhD CLIA Number: [id number] Hyacinth Perkins MD LAB REF LAB BLOOD AND FLUID OR D Final Result Performing Organization Address [facility] Co de Phone Number [facility] [address] [place] [address] * Meningitis/Encephalitis Panel by PCR (10/14/2024 10:24 AM EDT) Pathologist [facility] Escherichia coli K1 PCR Result Not Detected [...] [facility] [address] [place] [address] * MADINA NELSON DNA BY PCR(CSF) (SO) (10/14/2024 10:24 AM EDT) Pathologist [facility] [place] Madina Nelson PCR CSF Not Detected Not Detected IU/mL 10/15/2024 8:27 PM EDT [facility] (ALEX) Comment: Assay Range: 52 IU/mL to 1.69E+08 IU/mL The limit of quantitation (LOQ) is 52 IU/mL. EBV DNA detected below the LOQ will be reported as Detected:<52 IU/mL. This test was developed and its performance characteristics determined by [employer]. It has not been cleared or approved by the U.S. Food and Drug Administration. Results should be used in conjunction with clinical findings, and should not form the sole basis for a diagnosis or treatment decision. Testing Performed at: [facility] [address] [place] [address], [facility] [address] [place] [address] Sole Skiver: Anatoly Turk, PhD BCLD ([facility]) CLIA # [id number] FLAG Interpretation: A = Abnormal, H = High, L = Low Cerebrospinal Fluid Cerebrospinal fluid specimen / Unknown Non-blood Collection / Unknown 10/14/2024 10:24 AM EDT 10/14/2024 11:01 AM EDT Narrative [facility] (ALEX) - 10/15/2024 8:27 PM EDT Release to patient in [facility]->Immediate Hyacinth Perkins MD LAB BODY FLUIDS AND STOOLS ORD ERABLES Final Result [facility] FINK) * Cryptococcal Antigen, CSF (10/14/2024 10:24 AM EDT) Pathologist [facility] [place] Cryptococcal Antigen Result (CSF) Negative Negative 10/14/2024 3:50 PM EDT [facility] Cerebrospinal Fluid Lumbar puncture / Unknown Non-blood Collection / Unknown 10/14/2024 10:24 AM EDT 10/14/2024 10:55 AM EDT Hyacinth Perkins MD LAB MICROBIOLOGY - GENERAL ORD ERABLES Final Result [facility] [address] [place] [address] * HUYEN Polyoma Virus Quantitative by PCR, CSF (10/14/2024 10:24 AM EDT) HUYEN POLYOMA VIRUS DNA, QN,CSF Not Detected Not Detected copies/mL 10/15/2024 6:34 PM EDT [facility] ([facility]) Comment: Assay Range: 72 copies/mL to 1.00E+08 copies/mL The limit of quantitation (LOQ) is 72 copies/mL. HUYEN virus DNA detected below the LOQ will be reported as Detected:<72 copies/mL. This test was developed and its performance characteristics determined by [employer]. It has not been cleared or approved by the U.S. Food and Drug Administration. Results should be used in conjunction with clinical findings, and should not form the sole basis for a diagnosis or treatment decision. Testing Performed at: [facility] [address] [place] [address], [address] [place] [address] Sole Skiver: Anatoly Turk, PhD SUNITA ([facility]) IA # [id number] FLAG Interpretation: A = Abnormal, H = High, L = Low Cerebrospinal Fluid Cerebrospinal fluid specimen / Unknown Non-blood Collection / Unknown 10/14/2024 10:24 AM EDT 10/14/2024 11:01 AM EDT Narrative [facility] ([facility]) - 10/15/2024 6:34 PM EDT Release to patient in [facility]->Immediate Hyacinth Perkins MD LAB BODY FLUIDS AND STOOLS ORD ERABLES Final Result Field [facility] [employer]) * Cerebrospinal Fluid (CSF) Culture and Gram Stain (10/14/2024 10:24 AM EDT) Culture No growth at day 4 2024 [...] [facility] [address] [place] [address] * CSF Cell Count W/O Diff (10/14/2024 [...] ORD ERABLES Final Result [facility] [address] [place] [address] * West Nile virus, CSF (10/14/2024 10:24 AM EDT) WEST NILE VIRUS AB,IGG,CSF 0.01 <=1.29 IV 10/17/2024 7:33 AM EDT [facility] ([facility]) WEST NILE VIRUS AB,IGM,CSF 0.00 <=0.89 IV 10/17/2024 7:33 AM EDT [facility] ([facility]) Cerebrospinal Fluid Cerebrospinal fluid specimen / Unknown Non-blood Collection / Unknown 10/14/2024 10:24 AM EDT 10/14/2024 11:01 AM EDT Narrative [facility] ([facility]) - 10/17/2024 7:33 AM EDT INTERPRETIVE INFORMATION: [...] members of the Flaviviridae family, such as [place] encephalitis virus, show extensive cross-reactivity with West [...] developed and its performance characteristics determined by [employer]. It has not been cleared or approved [...] members of the Flaviviridae family, such as [place] encephalitis virus, show extensive cross-reactivity with West [...] developed and its performance characteristics determined by [employer]. It has not been cleared or approved by the US Food and Drug Administration. This test was performed in a CLIA certified laboratory and is intended for clinical purposes. Performed By: [employer] [address] [place] [address] Automation And Controls Manager: Manuel Mas MD, PhD CLIA Number: [id number] Hyacinth Perkins MD LAB BLOOD ORDERABLES Final Res ult [facility] [address] [place] [address] * Protein, CSF (10/14/2024 10:24 AM EDT) Total Protein, CSF 31 15 - 45 mg/dL 10/14/2024 12:15 PM EDT [facility] Cerebrospinal Fluid Lumbar puncture / Unknown Non-blood Collection / Unknown 10/14/2024 10:24 AM EDT 10/14/2024 11:01 AM EDT [facility] - 10/14/2024 12:15 PM EDT Blood, when present in CSF, invalidates protein. Interpret results in the context of the patient's condition and other laboratory results. Hyacinth Perkins MD LAB BODY FLUIDS AND STOOLS ORD ERABLES Final Result Performing Organization Address [facility] de Phone Number [facility] [address] [place] [address] * (ABNORMAL) Glucose, CSF (10/14/2024 10:24 AM EDT) Glucose, CSF 89(H) 41 - 70 mg/dL 10/14/2024 12:15 PM EDT [facility] Cerebrospinal Fluid Lumbar puncture / Unknown Non-blood Collection / Unknown 10/14/2024 10:24 AM EDT 10/14/2024 11:01 AM EDT [facility] - 10/14/2024 12:15 PM EDT CSF glucose values should be approximately 60 % of the plasma values and must always be compared with concurrently measured plasma values for adequate clinical interpretation. No reference ranges have been established for pediatric patients. Hyacinth Perkins MD LAB BODY FLUIDS AND STOOLS ORD ERABLES Final Result Performing Organization Address [facility] [place] [address] * Non-Gynecologic Cytology (10/14/2024 10:24 AM EDT) Case Report Cytology Case: [id number] Authorizing Provider: Hyacinth Perkins MD Collected: 10/14/2024 1024 Ordering Location: [facility] Emergency Department Received: 10/14/2024 1353 Pathologist: Miryam Navarro MD Specimen: Cerebrospinal Fluid, CEREBROSPINAL FLUID 10/17/2024 4:58 PM EDT [facility] Final Diagnosis A. CEREBROSPINAL FLUID: - NO EVIDENCE OF MALIGNANCY. 10/17/2024 4:58 PM EDT [facility] at 1658 EDT Clinical History H/O SCLC, mets to brain 10/17/2024 4:58 PM EDT [facility] Previous Cancer Yes 10/17/2024 4:58 PM EDT [facility] Previous Cancer Primary Site Lung Cancer 10/17/2024 4:58 PM EDT [facility] Gross Description A. CEREBROSPINAL FLUID 8 ml's clear fluid, 3 ml's tube one, 0.5 ml's tube two, 1.5 ml's tube three and 3 ml's tube four processed as thin prep 10/17/2024 4:58 PM EDT [facility] Cerebrospinal Fluid Cerebrospinal fluid specimen / Unknown Non-blood Collection / Unknown 10/14/2024 10:24 AM EDT 10/14/2024 1:53 PM EDT us Hyacinth Perkins MD LAB CYTOLOGY ORDERABLES Final Result [facility] [address] [place] [address] * CT Chest w IV Contrast (10/13/2024 [...] 9:02 PM Final report signed by Liseth oWods MD on 10/13/2024 9:09 PM Jamila Stanford IMG CT PROCEDURES Final Re sult [...] Harpreet Draper MD on 10/13/2024 12:36 PM Sanya Ledezma MD IMG MRI PROCEDURES Final Re sult * Sodium, urine, random (10/13/2024 2:33 AM EDT) Sodium, Urine 49 mmol/L 10/13/2024 3:10 AM EDT [facility] Urine Urine specimen obtained by clean catch procedure / Unknown Non-blood Collection / Unknown 10/13/2024 2:33 AM EDT 10/13/2024 2:51 AM EDT us Jamila Stanford DO LAB URINE ORDERABLES Final Result Performing Organization Address City/[facility]/ZIP Co de Phone Number [facility] [address] [place] [address] * Osmolality, urine (10/13/2024 2:33 AM EDT) Osmolality, Urine 504 50 - 1,200 mOsm/kg 10/13/2024 4:35 AM EDT [facility] Urine Urine specimen obtained by clean catch procedure / Unknown Non-blood Collection / Unknown 10/13/2024 2:33 AM EDT 10/13/2024 2:51 AM EDT Jamila Stanford LAB URINE ORDERABLES Final Result [facility] [address] [place] [address] * Anti Xa Level Low Molecular Weight [...] [facility] [address] [place] [address] * CT Abdomen Pelvis w IV Contrast [...] of the spine. Procedure Note True, Talisha Whitatker MD - 10/12/2024 CLINICAL INDICATION: fever, small [...] predict 28 day mortality risk. Please consult [email or web address]-efp-bwwiivepsh.com for more information. Test performed at [facility]. us PT PAL LAB BLOOD ORDERABLES Gracia l Result Performing Organization Address [facility]/ZIP Co de Phone Number [facility] [address] [place] [address] * (ABNORMAL) C-Reactive protein (10/12/2024 4:51 PM [...] risk order high sensitivity CRP (CRPH). us PT PAL LAB BLOOD ORDERABLES Gracia l Result Performing Organization Address [facility]/ZIP Co de Phone Number [facility] [address] [place] [address] * (ABNORMAL) Osmolality (10/12/2024 4:51 PM EDT) Osmolality, Serum 279(L) 280 - 301 mOsm/Kg 10/13/2024 12:14 AM EDT [facility] Blood Venous blood specimen / Unknown Venipuncture / Unknown 10/12/2024 4:51 PM EDT 10/12/2024 5:09 PM EDT us Jamila Stanford DO LAB BLOOD ORDERABLES Final Result [facility] [address] [place] [address] * (ABNORMAL) Caris ND Cancer Seek Hybrid??? + IHCs and Other Tests by Tumor Type (10/05/2024 8:54 AM EDT) CARIS PD-L1 (22C3) Negative 2024 8:15 PM EDT [facility] Genomic Loss of Heterozygosity - Exome Low 4% 10/16/2024 8:15 PM EDT [facility] CARNantero Microsatellite Instability - Exome Stable 10/16/2024 8:15 PM EDT [facility] Tumor Mutational [place] - Exome High 11 per Mb 10/16/2024 8:15 PM EDT [facility] CARIS Her2/Megan Negative 10/16/2024 8:15 PM EDT [facility] HLA-A - [place]ome A*02:01,A*24 :02 10/16/2024 8:15 PM EDT [facility] HLA-B - [place] B*08:01,B*39 :06 10/16/2024 8:15 PM EDT [facility] HLA-C - [place] C*07:01,C*07 :02 10/16/2024 8:15 PM EDT [facility] Tissue Non-blood Collection / Unknown 10/05/2024 8:54 AM EDT 10/05/2024 8:54 AM EDT Narrative This result has genomic variants that were not included in this document. us Satnam Dunne MD LAB MOL DX NO SOURCE Fi nal Result [facility] [address] [address], * TSH reflex FT4 (10/04/2024 9:43 AM EDT) Thyroid Stimulating Hormone, Plasma 0.90 0.40 - 4.20 uIU/mL 10/04/2024 10:29 AM EDT [facility] Blood Venous blood specimen / Unknown Venipuncture / Unknown 10/04/2024 9:43 AM EDT 10/04/2024 9:55 AM EDT Satnam Dunne MD LAB BLOOD ORDERABLES Fi nal Result [facility] [address] [place] [address] * Surgical Pathology Exam (09/05/2024 8:29 AM EDT) Case Report Surgical Pathology Case: [id number] Authorizing Provider: Abhilash Bangura MD Collected: 09/05/2024 [...] 7m Vonnie Stephens 09/06/2024 2:24 PM EDT [facility] [...] [facility] [address] [place] [address] * [place] AN ELECTIVE ENDOTRACHEAL AIRWAY, PB ANESTHESIA PLACEHOLDER [...] Additional Comments Atraumatic. No change to dentition. Result [facility] Ry Villalba MD ANESTHESIA ORDERABLES Final Resu [...] ORDERABLES Final Re sult Performing Organization Address [facility] Co de Phone Number [facility] [address] [place] [address] * (ABNORMAL) Hemoglobin A1c (09/02/2024 3:25 AM [...] Adults <6.0% Children and Adolescents <7.5% Source: [place] [employer]. Standards of medical care in diabetes,2017. Diabetes Care.2017:40 (suppl 1):S1-S135. us Zoraida Herbert MD LAB BLOOD ORDERABLES Final Re sult Performing Organization Address City/[facility]/ZIP Co de Phone Number [facility] [address] [place] [address] * (ABNORMAL) Renal Function Panel, Plasma (09/02/2024 [...] [facility] [address] [place] [address] * (ABNORMAL) Lipid panel (09/02/2024 3:25 AM [...] [facility] [address] [place] [address] * MR Venogram Head w IV Contrast [...] Total DLP (Dose-Length Product): 3123.65 mGy.cm (accession [id number]), 3123.65 mGy.cm (accession [id number]). Please note: The reported value represents the [...] Total DLP (Dose-Length Product): 3123.65 mGy.cm (accession [id number]),3123.65 mGy.cm (accession [id number]). Please note: The reported valuerepresents the total [...] Total DLP (Dose-Length Product): 3123.65 mGy.cm (accession [id number]), 3123.65 mGy.cm (accession [id number]). Please note: The reported value represents the [...] Total DLP (Dose-Length Product): 3123.65 mGy.cm (accession [id number]),3123.65 mGy.cm (accession [id number]). Please note: The reported valuerepresents the total [...] Talisha Mo MD on 08/31/2024 10:14 PM Result Arlet Lares MD IMG CT PROCEDURES Final Resul t * ED HIV 1/2 Antibody/Antigen Screen w/Reflex to HIV 1/2 Differentiation (08/31/2024 5:54 PM EDT) [facility] HIV 1 & 2 Antibody/Antigen Screen Non [...] ORDERABLES Final Re sult Performing Organization Address [facility] de Phone Number [facility] [address] [place] [address] * Hepatitis C Antibody - ED (08/31/2024 5:54 PM EDT) [facility] Hepatitis C Antibody Negative Negative 08/31/2024 7:15 PM EDT [facility] Blood Venous blood specimen / Unknown Venipuncture / Unknown 08/31/2024 5:54 PM EDT 08/31/2024 6:28 PM EDT Result Arlet Lares MD LAB BLOOD ORDERABLES Final Re sult Performing Organization Address [facility] Co de Phone Number [facility] [address] [place] [address] * Lipase (08/31/2024 5:54 PM EDT) [facility] Lipase, Plasma 34 19 - 63 U/L 08/31/2024 6:43 PM EDT [facility] Blood Venous blood specimen / Unknown Venipuncture / Unknown 08/31/2024 5:54 PM EDT 08/31/2024 6:16 PM EDT Result Arlet Lares MD LAB BLOOD ORDERABLES Final Re sult [facility] [address] [place] [address] from Last 3 Months Additional Health Concerns Infection Onset Date Last Indicated 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
--- OUTSIDE RECORDS SUMMARY | 2024-11-25 15:49 | XMS_ITS ---
Author Organization Healthcare Address [address] [place] [address] Care Team Providers Care Transfer Man Name Role Phone Laurie Gutierrez MD Primary Care Provider [phone] Joshua Martínez MD Unavailable Sabine Morales RUBBER MOLDER Unavailable Unavailable Active Problems Problem Noted Date [...] 2, Cycle 3 - Planned for 11/30/2024) Qmpaugjozabd-Kzugasdzzppms-s qjs (Tecentriq Hybreza) 1875-83224 MG-UT/15ML solutionCARBOplatin (Paraplatin)CARBOplatin (Paraplatin) IVPB (by AUC: GOG-COCKCROFT GAULT)Etoposide (Toposar)etoposide (Vepesid) IVPB Atezolizumab-Hyaluronidase- tqjs (Tecentriq Hybreza) [id number] MG-UT/15ML injection solution 1,875 mgCARBOplatin (Paraplatin) 620 [...]
--- OUTSIDE RECORDS SUMMARY | 2024-11-25 15:49 | XMS_ITS | Encounter Summary ---
Author Organization Healthcare Address [address] [place] [address] Care Team Providers Care Referral And Information Aide Name Role Phone Laurie Gutierrez MD [...] drink first t laurie in the morning (EYE-GRAPHICS MANAGER) to steady your nerves or to get rid of a hangover? 0 10/27/2024 CAGE Questionnaire Score 0 025 Utilities Answer Date Recorded In the past 12 months has [employer], gas, oil, or water company threatened to shut off services in your home? No 10/26/2024 Comments No Sex and Gender Information Value Date Recorded Sex Assigned at Not on file Legal Sex Female 8:32 PM EDT Gender Identity Not on file Sexual Orientation Not on file documented as of this encounter Plan of Treatment Upcoming Encounters Date Type Department Care Team ([facility] Contact Info) Description 11/29/2024 10:30 AM EDT Clinical Support Pav CC Head, Neck & Respiratory 800 [facility], [address]nd [place] [address] 11/29/2024 11:00 AM EDT Office Visit Pav CC Head, Neck & Respiratory 800 [facility], 2nd [place] [address] Satnam Colvin MD 800 [facility] Nuria Degroot [facility] 134 [place] [address] 11/29/2024 12:30 PM EDT Appointment [facility] 1 [address] [place] [address] 11/30/2024 1:30 PM EDT Appointment [facility] 1 [address] [place] [address] 12/01/2024 2:00 PM EDT Appointment [facility] 1 [address] [place] [address] 12/06/2024 11:40 AM EDT Appointment P[facility] CC Radiation [id number] [place] [address] Haven Blum, SAFETY ENGINEER 800 [facility] [address] [place] [address] 01/19/2025 9:30 AM EDT Appointment PAV S Radiology [address], 1st [place] [address] 01/19/2025 10:45 AM EDT [facility] [place] [facility] [address], 1st [place] [address] Abhilash Bangura MD [address] [place] [address] 03/08/2025 1:00 PM EDT Office Visit [facility] Felton Wenceslao 800 [facility]. 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 Panic 10/26/2024 10/31/2024 Assessment Noted Time PHQ-9 Depression Total Score: 0 09/01/19 25 3:26 PM EDT A fall risk assessment has been complete d for the patient 11/10/2024 2:43 PM EDT A Body Mass Index follow-up plan has been documented for the patient 11/08/2024 5:14 PM EDT documented as of this encounter Care Teams Referral And Information Aide Relationship Specialty Start Date End Date Laurie Gutierrez MD [address] [place] [address] PCP - General 12/09/23 Joshua Martínez MD [address] [place] [address] [address] [place] [address] Consulting Physician Radiation Oncology 09/19/24 documented as of this encounter
--- OUTSIDE RECORDS SUMMARY | 2024-11-25 15:49 | XMS_ITS | Encounter Summary ---
Author Organization Healthcare Address [address] [place] [address] Care Team Providers Care Lozenge Maker Name Role Phone Laurie Gutierrez MD Primary Care Provider [phone] Joshua Martínez MD Unavailable Encounter Details Date [...] drink first t laurie in the morning (EYE-INTEL RECRUITER) to steady your nerves or to get rid of a hangover? 0 10/27/2024 CAGE Questionnaire Score 0 025 Utilities Answer Date Recorded In the past 12 months has [employer], gas, oil, or water company threatened to shut off services in your home? No 10/26/2024 Comments No Sex and Gender Information Value Date Recorded Sex Assigned at Not on file Legal Sex Female 8:32 PM EDT Gender Identity Not on file Sexual Orientation Not on file documented as of this encounter Plan of Treatment Upcoming Encounters Date Type Department Care Team ([facility] Contact Info) Description 11/29/2024 10:30 AM EDT Clinical Support Pav CC Head, Neck & Respiratory 800 [facility], [address]nd [place] [address] 11/29/2024 11:00 AM EDT Office Visit Pav CC Head, Neck & Respiratory 800 [facility], 2nd [place] [address] Satnam Colvin MD 800 [facility] Nuria Degroot [facility] 134 [place] [address] 11/29/2024 12:30 PM EDT Appointment [facility] 1 [address] [place] [address] 11/30/2024 1:30 PM EDT Appointment [facility] 1 [address] [place] [address] 12/01/2024 2:00 PM EDT Appointment [facility] 1 [address] [place] [address] 12/06/2024 11:40 AM EDT Appointment P[facility] CC Radiation [id number] [place] [address] Haven Blum, CHAR CONVEYOR TENDER CELLAR 800 [facility] [address] [place] [address] 01/19/2025 9:30 AM EDT Appointment PAV S Radiology [address], 1st [place] [address] 01/19/2025 10:45 AM EDT Office [facility] [place] [facility] [address], 1st [place] [address] Abhilash Bangura MD [address] [place] [address] 03/08/2025 1:00 PM EDT Office Visit [facility] Wacissa Wenceslao 800 [facility]. 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 Panic 10/26/2024 10/31/2024 Assessment Noted Time PHQ-9 Depression Total Score: 0 09/01/19 25 3:26 PM EDT A fall risk assessment has been complete d for the patient 11/10/2024 2:43 PM EDT A Body Mass Index follow-up plan has been documented for the patient 11/08/2024 5:14 PM EDT documented as of this encounter Care Teams Lozenge Maker Relationship Specialty Start Date End Date Laurie Gutiererz MD [address] [place] [address] PCP - General 12/09/23 Joshua Martínez MD [address] [place] [address] [address] [place] [address] Consulting Physician Radiation Oncology 09/19/24 documented as of this encounter
--- OUTSIDE RECORDS SUMMARY | 2024-11-25 15:50 | XMS_ITS | Encounter Summary ---
Author Organization Healthcare Address [address] [place] [address] Care Team Providers Care Electrical Laboratory Technician Name Role Phone Laurie Gutierrez MD Primary Care Provider [phone] Joshua Martínez MD Unavailable Paradise Pacheco RN Unavailable Unavailab le Encounter Details Date Type Department Care Team (Late st Contact Info) Description 11/18/2024 Orders Only External Location 800 [place] [address] Nuria Lunsford PA [address] [place] [address] Social History Tobacco Use Types Packs/Day [...] any time in the past 12 m [facility], were you homeless or [...] any time in the past 12 m [facility], were you homeless or [...] drink first t laurie in the morning (EYE-PASTRY COOK) to steady your nerves or to get [...] Head, Neck & Respiratory 800 [facility], 2nd [place] [address] 11/29/2024 11:00 AM EDT Office Visit Pav CC Head, Neck & Respiratory [address] [facility], 2nd [place] [address] Satnam Colvin MD [address] [facility] Nuria [address]root [address] [place] [address] 11/29/2024 12:30 PM EDT Appointment [facility] 1 [address] [place] [address] 11/30/2024 1:30 PM EDT Appointment [facility] 1 [address] [place] [address] 12/01/2024 2:00 PM EDT Appointment [facility] 1 [address] [place] [address] 12/06/2024 11:40 AM EDT Appointment P[facility] CC Radiation [address] [facility]. [id number] [place] [address] Haven Blum, ANTI AIR WARFARE OPERATIONS OFFICER 800 [facility] [address] [place] [address] 01/19/2025 9:30 AM EDT Appointment PAV S Radiology [address], 1st [place] [address] 01/19/2025 10:45 AM EDT Office Visit [place] [facility] [address], 1st [place] [address] Abhilash Bangura MD [address] [place] [address] 03/08/2025 1:00 PM EDT Office Visit [facility] Duke Wenceslao 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 Panic 10/26/2024 10/31/2024 Assessment Noted Time PHQ-9 Depression Total Score: 0 09/01/19 25 3:26 PM EDT A fall risk assessment has been complete d for the patient 11/10/2024 2:43 PM EDT A Body Mass Index follow-up plan has been documented for the patient 11/08/2024 5:14 PM EDT documented as of this encounter Care Teams Electrical Laboratory Technician Relationship Specialty Start Date End Date Laurie Gutierrez MD [address] [place] [address] PCP - General 12/09/23 Joshua Martínez MD [address] [place] [address] Consulting Physician Radiation Oncology 09/19/24 Paradise Pacheco, RN CH-VASCULAR & INTERVENTIONAL RADIOLOGY Registered Nurse 11/21/24 11/21/24 documented as of this encounter
--- OUTSIDE RECORDS SUMMARY | 2024-11-25 15:50 | XMS_ITS | Encounter Summary ---
Author Organization Healthcare Address [address] [place] [address] Care Team Providers Care Emergency Medical Technician Name Role Phone Laurie Gutierrez MD Primary Care Provider [phone] Joshua Martínez MD Unavailable Paradise Pacheco RN Unavailable Unavailab le Encounter Details Date Type Department Care Team (Late st Contact Info) Description 11/18/2024 Orders Only External Location 800 [place] [address] Provider, External Social History Tobacco Use Types [...] living in a detention (including now)? No 11/21/2024 CAGE ASSESSMENT Answer [...] first t laurie in the morning (EYE-LEAD PROJECT MANAGER) to steady your nerves or to get rid of a hangover? 0 10/27/2024 CAGE Questionnaire Score 0 025 Utilities Answer Date Recorded In the past 12 months has e [employer], gas, oil, or water [facility] threatened to shut off services in your [...] Pav CC Head, Neck & Respiratory 800 [facility], 2nd [place] [address] 11/29/2024 11:00 AM EDT Office Visit Pav CC Head, Neck & Respiratory 800 [facility], 2nd [place] [address] Satnam Colvin MD 800 [facility] Nuria [address]root [address] [place] [address] 11/29/2024 12:30 PM EDT Appointment [facility] 1 [address] [place] [address] 11/30/2024 1:30 PM EDT Appointment [facility] 1 [address] [place] [address] 12/01/2024 2:00 PM EDT Appointment [facility] 1 [address] [place] [address] 12/06/2024 11:40 AM EDT Appointment PAV CC Radiation 800 [facility]. [id number] [place] [address] Haven Blum, TRUCK LOADER AND UNLOADER 800 [facility] [address] [place] [address] 01/19/2025 9:30 AM EDT Appointment PAV S Radiology [address], 1st [place] [address] 01/19/2025 10:45 AM EDT Office Visit [place] [facility] [address], 1st [place] [address] Abhilash Bangura MD [address] [place] [address] 03/08/2025 1:00 PM EDT Office Visit [facility] Lindsay Wenceslao 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, KITCHEN DESIGNER Panic 10/26/2024 10/31/2024 Assessment Noted Time PHQ-9 Depression Total Score: 0 09/01/19 25 3:26 PM EDT A fall risk assessment has been complete d for the patient 11/10/2024 2:43 PM EDT A Body Mass Index follow-up plan has been documented for the patient 11/08/2024 5:14 PM EDT documented as of this encounter Care Teams Emergency Medical Technician Relationship Specialty Start Date End Date Laurie Gutierrez MD [address] [place] [address] PCP - General 12/09/23 Joshua Martínez MD 800 [facility] [address] [place] [address] Consulting Physician Radiation Oncology 09/19/24 Paradise Pacheco, RN CH-VASCULAR & INTERVENTIONAL RADIOLOGY Registered Nurse 11/21/24 11/21/24 documented as of this encounter
--- OUTSIDE RECORDS SUMMARY | 2024-11-25 15:50 | XMS_ITS | Encounter Summary ---
Author Organization Healthcare Address [address] [place] [address] Care Team Providers Care Mechanic General Operational Test Name Role Phone Laurie Gutierrez MD Primary Care Provider [phone] Joshua Martínez MD Unavailable Paradise Pacheco RN Unavailable Unavailab le Reason for Visit * Reason Comments Link Encounter Details Date Type Department Care Team (Late st Contact Info) Description 11/21/2024 Patient Outreach [facility] [address] [facility], [address] [place] [address] Paradise Pacheco, RN CH-VASCULAR & [...] living in a halfway (including now)? No 11/21/2024 CAGE ASSESSMENT Answer [...] drink first t laurie in the morning (EYE-AQUATIC INSTRUCTOR) to steady your nerves or to [...] Pav CC Head, Neck & Respiratory 800 [facility], 2nd [place] [address] 11/29/2024 11:00 AM EDT Office Visit Pav CC Head, Neck & Respiratory 800 [facility], [address]nd [place] [address] Satnam Colvin MD 800 [facility] [address] [address] [place] [address] 11/29/2024 12:30 PM EDT Appointment [facility] 1 [address] [place] [address] 11/30/2024 1:30 PM EDT Appointment [facility] 1 [address] [place] [address] 12/01/2024 2:00 PM EDT Appointment [facility] 1 [address] [place] [address] 12/06/2024 11:40 AM EDT Appointment PAV CC Radiation 800 [facility]. [id number] [place] [address] Haven Blum, OPERATIONS/DISPATCH 800 [facility] [address] [place] [address] 01/19/2025 9:30 AM EDT Appointment PAV S Radiology [address], 1st [place] [address] 01/19/2025 10:45 AM EDT Office Visit [place] [facility] [address], 1st [place] [address] Abhilash Bangura MD [address] [place] [address] 03/08/2025 1:00 PM EDT Office Visit [facility] [place] Wenceslao 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, PRESS OPERATOR Panic 10/26/2024 10/31/2024 Assessment Noted Time PHQ-9 Depression Total Score: 0 09/01/19 3:26 PM EDT A fall risk assessment has been complete d for the patient 11/10/2024 2:43 PM EDT A Body Mass Index follow-up plan has been documented for the patient 11/22/2024 4:27 PM EDT documented as of this encounter Care Teams Mechanic General Operational Test Relationship Specialty Start Date End Date Laurie Gutierrez MD [address] [place] [address] PCP - General 12/09/23 Joshua Martínez MD [address] [place] [address] Consulting Physician Radiation Oncology 09/19/24 Paradise Pacheco, RN CH-VASCULAR & INTERVENTIONAL RADIOLOGY Registered Nurse 11/21/24 11/21/24 documented as of this encounter
--- OUTSIDE RECORDS SUMMARY | 2024-11-25 15:50 | XMS_ITS | Encounter Summary ---
Author Organization [facility] Address [address] [place] [address] Care Team Providers Care Meteorology Professor Name Role Phone Laurie Gutierrez MD Primary Care Provider [phone] Joshua Martínez MD Unavailable Encounter Details Date [...] living in a fdc (including now)? No 09/06/2024 CAGE ASSESSMENT Answer [...] drink first t laurie in the morning (EYE-WHARF LABOURER) to steady your nerves or to get [...] Pav CC Head, Neck & Respiratory 800 [facility], 2nd [place] [address] 11/29/2024 11:00 AM EDT Office Visit Pav CC Head, Neck & Respiratory 800 [facility], 2nd [place] [address] Satnam Colvin MD 800 [facility] [address] [place] [address] 11/29/2024 12:30 PM EDT Appointment [facility] 1 [address] [place] [address] 11/30/2024 1:30 PM EDT Appointment [facility] 1 [address] [place] [address] 12/01/2024 2:00 PM EDT Appointment [facility] 1 [address] [place] [address] 12/06/2024 11:40 AM EDT Appointment PAV CC Radiation 800 [facility]. [id number] [place] [address] Haven Blum, BULK TANK DRIVER 800 [facility] [address] [place] [address] 01/19/2025 9:30 AM EDT Appointment PAV S Radiology [address], [address] [place] [address] 01/19/2025 10:45 AM EDT Office Visit [place] [facility] [address], 1st [place] [address] Abhilash Bangura MD [address] [place] [address] 03/08/2025 1:00 PM EDT Office Visit [facility] [place] Wenceslao [address] [place] [address] Teresita Oconnell MD [address] [place] [address] documented as of this encounter [...] documented as of this encounter Care Teams Meteorology Professor Relationship Specialty Start Date End Date Laurie Gutierrez MD [address] [place] [address] PCP - General 12/09/23 Joshua Martínez MD [address] [place] [address] Consulting Physician Radiation Oncology 09/19/24 documented as of this encounter
--- OUTSIDE RECORDS SUMMARY | 2024-11-25 15:50 | XMS_ITS | Encounter Summary ---
Author Organization Healthcare Address [address] [place] [address] Care Team Providers Care Satellite Dish Repairer Name Role Phone Laurie Gutierrez MD Primary Care Provider [phone] Joshua Martínez MD Unavailable Reason for Visit * Reason Comments Resource Navigation Encounter Details Date Type Department Care Team (Late st Contact Info) Description 10/04/2024 Social Work Psych Oncology 800 [place] [address] Mariah Rowley Social History Tobacco Use Types [...] living in a halfway (including now)? No 09/06/2024 CAGE ASSESSMENT Answer [...] drink first t laurie in the morning (EYE-DIRECTORY COMPILER) to steady your nerves or to get [...] Visit Disease Status: Established Patient Clinic Location: [facility] Services Provided: Gift / Gas Card Gift Card Type: [employer] Gift Card Amount: 100 Intervention Level: 2 Units (1 unit = 15 minutes): 4 Narrative: RENEWALS REPRESENTATIVE met with pt in clinic to follow up on request from RN. Per RN, pt identified financial hardships. RENEWALS REPRESENTATIVE met with pt in exam room and introduced self and non urgent nature of visit. Pt explained that she is in need of assistance for food and gas money to get back and forth for her tx. Pt voiced wish to stay at [facility] but stated she has been unable to find a caregiver. RENEWALS REPRESENTATIVE encouraged pt to reach out to RENEWALS REPRESENTATIVE in the future should pt locate a caregiver to stay at with pt. RENEWALS REPRESENTATIVE offered to givept assistance for fuel and gas to offset costs associated with getting back and forth with treatment. Pt expressed appreciation for the assistance. RENEWALS REPRESENTATIVE then assisted pt with getting over to infusion and committed to coming back during pt's infusion. RENEWALS REPRESENTATIVE later met with pt once in a chair and provided pt with 100.00 card. RENEWALS REPRESENTATIVE informed pt that card already activated and ready to use. Pt voiced understanding and appreciation for the assistance. No further needs identified. RENEWALS REPRESENTATIVE encouraged to reach out for any future questions, comments, or concerns. RENEWALS REPRESENTATIVE to remain available for any ongoing needs orsupport. NAVEED Ashley, RENEWALS REPRESENTATIVE [facility] Psych-Oncology Services documented in this encounter Plan of Treatment Upcoming Encounters Date Type Department Care Team (Late st Contact Info) Description 11/29/2024 10:30 AM EDT Clinical Support Pav CC Head, Neck & Respiratory 800 [facility], 2nd [place] [address] 11/29/2024 11:00 AM EDT Office Visit Pav CC Head, Neck & Respiratory 800 [facility], 2nd [place] [address] Satnam Colvin MD 800 [facility] [address] [place] [address] 11/29/2024 12:30 PM EDT Appointment [facility] 1 [address] [place] [address] 11/30/2024 1:30 PM EDT Appointment [facility] 1 [address] [place] [address] 12/01/2024 2:00 PM EDT Appointment [facility] 1 [address] [place] [address] 12/06/2024 11:40 AM EDT Appointment P[facility] CC Radiation [address] [facility]. [id number] [place] [address] aHven Blum, BELL SPINNER SOUSAPHONES 800 [facility] [address] [place] [address] 01/19/2025 9:30 AM EDT Appointment PAV S Radiology [address], 1st [place] [address] 01/19/2025 10:45 AM EDT Office Visit [place] [facility] [address], 1st [place] [address] Abhilash Bangura MD [address] [place] [address] 03/08/2025 1:00 PM EDT Office Visit [facility] [place] Wenceslao [address] [place] [address] Teresita Oconnell MD [address] [place] [address] documented as of this encounter [...] documented as of this encounter Care Teams Satellite Dish Repairer Relationship Specialty Start Date End Date Laurie Gutierrez MD [address] [place] [address] PCP - General 12/09/23 Joshua Martínez MD 800 [facility] [address] [place] [address] Consulting Physician Radiation Oncology 09/19/24 documented as of this encounter
--- OUTSIDE RECORDS SUMMARY | 2024-11-25 15:50 | XMS_ITS | Encounter Summary ---
Author Organization Healthcare Address [address] [place] [address] Care Team Providers Care Equipment Sales Specialist Name Role Phone Laurie Gutierrez MD [...] drink first t laurie in the morning (EYE-MICROGRINDER OPERATOR) to steady your nerves or to get rid of a hangover? 0 10/27/2024 CAGE Questionnaire Score 0 025 Utilities Answer Date Recorded In the past 12 months has e [employer], gas, oil, or water [employer] threatened to shut off services in your [...] Upcoming Encounters Date Type Department Care Team ([facility] st Contact Info) Description 11/29/2024 10:30 AM EDT Clinical Support Pav [facility] Head, Neck & Respiratory [address] [facility], 2nd [place] [address] 11/29/2024 11:00 AM EDT Office Visit Pav [facility] Head[facility] Neck & Respiratory [address] [facility], 2nd [place] [address] Satnam Colvin MD [address] [facility] [address] [place] [address] 11/29/2024 12:30 PM EDT Appointment [facility] 1 [address] [place] [address] 11/30/2024 1:30 PM EDT Appointment [facility] 1 [address] [place] [address] 12/01/2024 2:00 PM EDT Appointment [facility] 1 [address] [place] [address] 12/06/2024 11:40 AM EDT Appointment [facility] CC Radiation [address] [facility]. [id number] [place] [address] Haven Blum, PRODUCTION CONTROL COORDINATING CLERK [address] [facility] [address] [place] [address] 01/19/2025 9:30 AM EDT Appointment PAV S Radiology [address], 1st [place] [address] 01/19/2025 10:45 AM EDT Office Visit [place] [facility] [address], 1st [place] [address] Abhilash Bangura MD [address] [place] [address] 03/08/2025 1:00 PM EDT Office Visit [facility] [place] W[facility]o [address] 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, STOCK BROKER Panic 10/26/2024 10/31/2024 Assessment Noted Time PHQ-9 Depression Total Score: 0 09/01/19 25 3:26 PM EDT A fall risk assessment has been complete d for the patient 11/10/2024 2:43 PM EDT A Body Mass Index follow-up plan has been documented for the patient 11/22/2024 4:27 PM EDT documented as of this encounter Care Teams Equipment Sales Specialist Relationship Specialty Start Date End Date Laurie Gutierrez MD [address] [place] [address] PCP - General 12/09/23 Joshua Martínez MD [address] [place] [phone] Consulting Physician Radiation Oncology 09/19/24 documented as of this encounter
--- OUTSIDE RECORDS SUMMARY | 2024-11-25 15:50 | XMS_ITS | Encounter Summary ---
Author Organization [facility] Address [address] [place] [address] Care Team Providers Care Electrician Research Name Role Phone Laurie Gutierrez MD Primary [...] drink first t laurie in the morning (EYE-MATERIAL REPROCESSING ASSOCIATE) to steady your nerves or to [...] Upcoming Encounters Date Type Department Care Team ([facility] st Contact Info) Description 11/29/2024 10:30 AM EDT Clinical Support Pav CC Head, Neck & Respiratory 800 [facility], 2nd [place] [address] 11/29/2024 11:00 AM EDT Office Visit Pav CC Head, Neck & Respiratory [address] [facility], 2nd [place] [address] Satnam Colvin MD [address] [facility] [address] [place] [address] 11/29/2024 12:30 PM EDT Appointment [facility] 1 [address] [place] [address] 11/30/2024 1:30 PM EDT Appointment [facility] 1 [address] [place] [address] 12/01/2024 2:00 PM EDT Appointment [facility] 1 [address] [place] [address] 12/06/2024 11:40 AM EDT Appointment P[facility] CC Radiation [address] [facility]. [id number] [place] [address] Haven Blum, DISASSEMBLER PRODUCT 800 [facility] [address] [place] [address] 01/19/2025 9:30 AM EDT Appointment PAV S Radiology [address], 1st [place] [address] 01/19/2025 10:45 AM EDT Office Visit [place] [facility] [address], 1st [place] [address] Abhilash Bangura MD [address] [place] [address] 03/08/2025 1:00 PM EDT Office Visit [facility] [place] [address] [place] [address] Teresita Oconnell MD [address] [address] documented as of this encounter [...] as of this encounter Care Teams Electrician Research Relationship Specialty Start Date End Date Laurie Gutierrez MD [address] [place] [address] PCP - General 12/09/23 Joshua Martínez MD [address] [place] [address] Consulting Physician Radiation Oncology 09/19/24 documented as of this encounter
--- OUTSIDE RECORDS SUMMARY | 2024-11-25 15:50 | XMS_ITS | Encounter Summary ---
Author Organization [facility] Address [address] [place] [address] Care Team Providers Care Gerentological Physiotherapist Name Role Phone Laurie Gutierrez MD Primary Care Provider [phone] Joshua Marítnez MD Unavailable Encounter Details Date Type Department [...] in a long term (including now)? No 09/06/2024 CAGE ASSESSMENT Answer [...] drink first t laurie in the morning (EYE-BRADDISHER) to steady your nerves or to get [...] Upcoming Encounters Date Type Department Care Team ([facility] st Contact Info) Description 11/29/2024 10:30 AM EDT Clinical Support Pav CC Head, Neck & Respiratory 800 [facility], 2nd [place] [address] 11/29/2024 11:00 AM EDT Office Visit Pav CC Head, Neck & Respiratory 800 [facility], 2nd [place] [address] Satnam Colvin MD 800 [facility] [address] [place] [address] 11/29/2024 12:30 PM EDT Appointment [facility] 1 [address] [place] [address] 11/30/2024 1:30 PM EDT Appointment [facility] 1 [address] [place] [address] 12/01/2024 2:00 PM EDT Appointment [facility] 1 [address] [place] [address] 12/06/2024 11:40 AM EDT Appointment PAV CC Radiation [address] [facility]. [id number] [place] [address] Haven Blum, PUBLIC HEALTH SANITARIAN 800 [facility] [address] [place] [address] 01/19/2025 9:30 AM EDT Appointment PAV S Radiology [address], 1st [place] [address] 01/19/2025 10:45 AM EDT Office Visit [place] [facility] [address], 1st [place] [address] Abhilash Bangura MD [address] [place] [address] 03/08/2025 1:00 PM EDT Office Visit [facility] [place] W[facility]lao [address] [place] [address] Teresita Oconnell MD [address] [place] [address] documented as of this encounter [...] documented as of this encounter Care Teams Gerentological Physiotherapist Relationship Specialty Start Date End Date Laurie Gutierrez MD [address] [place] [address] PCP - General 12/09/23 Joshua Martínez MD [address] [place] [address] Consulting Physician Radiation Oncology 09/19/24 documented as of this encounter
--- OUTSIDE RECORDS SUMMARY | 2024-11-25 15:51 | XMS_ITS | Encounter Summary ---
Author Organization [facility] Address [address] [place] [address] Care Team Providers Care Machine Feeder Name Role Phone Laurie Gutierrez MD Primary Care Provider [phone] Joshua Martínez MD Unavailable Encounter Details Date [...] living in a custodial (including now)? No 09/06/2024 CAGE ASSESSMENT Answer [...] drink first t laurie in the morning (EYE-CONTENT STRATEGY LEAD) to steady your nerves or to [...] Upcoming Encounters Date Type Department Care Team ([facility] st Contact Info) Description 11/29/2024 10:30 AM EDT Clinical Support Pav CC Head, Neck & Respiratory [address] [facility], 2nd [place] [address] 11/29/2024 11:00 AM EDT Office Visit Pav CC Head, Neck & Respiratory [address] [facility], 2nd [place] [address] Satnam Colvin MD [address] [facility] [address] [place] [address] 11/29/2024 12:30 PM EDT Appointment [facility] 1 [address] [place] [address] 11/30/2024 1:30 PM EDT Appointment [facility] 1 [address] [place] [address] 12/01/2024 2:00 PM EDT Appointment [facility] 1 [address] [place] [address] 12/06/2024 11:40 AM EDT Appointment PAV CC Radiation [address] [facility]. [id number] [place] [address] Haven Blum, CONFIGURATION DEVELOPER 800 [facility] [address] [place] [address] 01/19/2025 9:30 AM EDT Appointment PAV S Radiology [address], 1st [place] [address] 01/19/2025 10:45 AM EDT Office Visit [place] [facility] [address], 1st [place] [address] Abhilash Bangura MD [address] [place] [address] 03/08/2025 1:00 PM EDT Office Visit [facility] [place] Wenceslao [address] [place] [address] Teresita Oconnell MD [address] [place] [address] documented as of this encounter [...] as of this encounter Care Teams Machine Feeder Relationship Specialty Start Date End Date Laurie Gutierrez MD [address] [place] [address] PCP - General 12/09/23 Joshua Martínez MD [address] [place] [address] Consulting Physician Radiation Oncology 09/19/24 documented as of this encounter
--- OUTSIDE RECORDS SUMMARY | 2024-11-25 15:51 | XMS_ITS | Encounter Summary ---
Author Organization [facility] Address [address] [place] [address] Care Team Providers Care Sound Printer Name Role Phone Laurie Gutierrez MD Primary Care Provider [phone] Joshua Martínez MD Unavailable Encounter Details Date [...] time in the past 12 m [facility], were you homeless or living in [...] drink first t laurie in the morning (EYE-DISEASE EDUCATION SPECIALIST) to steady your nerves or to [...] Upcoming Encounters Date Type Department Care Team ([facility] st Contact Info) Description 11/29/2024 10:30 AM EDT Clinical Support Pav CC Head, Neck & Respiratory 800 [facility], 2nd [place] [address] 11/29/2024 11:00 AM EDT Office Visit Pav CC Head, Neck & Respiratory 800 [facility], 2nd [place] [address] Satnam Colvin MD 800 [facility] [address] [place] [address] 11/29/2024 12:30 PM EDT Appointment [facility] 1 [address] [place] [address] 11/30/2024 1:30 PM EDT Appointment [facility] 1 [address] [place] [address] 12/01/2024 2:00 PM EDT Appointment [facility] 1 [address] [place] [address] 12/06/2024 11:40 AM EDT Appointment P[facility] CC Radiation 800 [facility]. [id number] [place] [address] Haven Blum, SNOW TECHNICIAN 800 [facility] [address] [place] [address] 01/19/2025 9:30 AM EDT Appointment PAV S Radiology [address], 1st [place] [address] 01/19/2025 10:45 AM EDT Office Visit [place] [facility] [address], 1st [place] [address] Abhilash Bangura MD [address] [place] [address] 03/08/2025 1:00 PM EDT Office Visit [facility] [place] Wences[place]o [address] [place] [address] Teresita Oconnell MD [address] [place] [...] documented as of this encounter Care Teams Sound Printer Relationship Specialty Start Date End Date Laurie Gutierrez MD [address] [place] [address] PCP - General 12/09/23 Joshua Martínez MD [address] [place] [address] Consulting Physician Radiation Oncology 09/19/24 documented as of this encounter
--- OUTSIDE RECORDS SUMMARY | 2024-11-25 15:51 | XMS_ITS | Encounter Summary ---
Author Organization Healthcare Address [address] [place] [address] Care Team Providers Care Physicist Acoustics Name Role Phone Laurie Gutierrez MD Primary Care Provider [phone] Joshua Martínez MD Unavailable Jasmina Smith LPN Unavailable Unavailable Encounter Details Date Type Department Care Team (Late st Contact Info) Description 10/25/2024 Orders Only [facility] CC Radiation [id number] [place] [address] Radiation Oncology, Physician, [address] [place], [place] [id number] Social History Tobacco Use Types Packs/Day Years [...] drink first t laurie in the morning (EYE-ROLLER INSPECTOR AND MENDER) to steady your nerves or to get [...] & Respiratory 800 [facility], 2nd [place] [address] 11/29/2024 11:00 AM EDT Office Visit Pav CC Head, Neck & Respiratory 800 [facility], 2nd [place] [address] Satnam Colvin MD 800 [facility] [address] [place] [address] 11/29/2024 12:30 PM EDT Appointment [facility] 1 [address] [place] [address] 11/30/2024 1:30 PM EDT Appointment [facility] 1 [address] [place] [address] 12/01/2024 2:00 PM EDT Appointment [facility] 1 [address] [place] [address] 12/06/2024 11:40 AM EDT Appointment P[facility] CC Radiation 800 [facility]. [id number] [place] [address] Haven Blum, SEWING INSPECTOR 800 [facility] [address] [place] [address] 01/19/2025 9:30 AM EDT Appointment PAV S Radiology [address], 1st [place] [address] 01/19/2025 10:45 AM EDT Office Visit [facility] [address], 1st [place] [address] Abhilash Bangura MD [address] [place] [address] 03/08/2025 1:00 PM EDT Office Visit [facility] [place] 800 [facility]. [address] [place] [address] Teresita Oconnell MD [address] [place] [address] documented as of this encounter [...] documented as of this encounter Care Teams Physicist Acoustics Relationship Specialty Start Date End Date Laurie Gutierrez MD [address] [place] [address] [place] [address] PCP - General 12/09/23 Joshua Martínez MD 800 [facility] [address] [place] [address] Consulting Physician Radiation Oncology 09/19/24 Jasmina Smith LPN VALUE-[place]ED [place] [address] TCM Nurse 10/19/24 11/01/24 documented as of this encounter
--- OUTSIDE RECORDS SUMMARY | 2024-11-25 15:51 | XMS_ITS | Encounter Summary ---
Author Organization Healthcare Address [address] [place] [address] Care Team Providers Care Rollway Man Name Role Phone Laurie Gutierrez MD Primary Care Provider Joshua Martínez MD Unavailable Paradise Pacheco RN Unavailable Unavailab le Encounter Details Date Type Department Care Team (Late st Contact Info) Description 11/15/2024 Orders Only External Location [address] [place] [address] Regina Katz D, MEDICAL INFORMATION SPECIALIST [address] [place] [address] Social History Tobacco Use Types [...] drink first t laurie in the morning (EYE-EQUALIZER OPERATOR) to steady your nerves or to [...] 800 [facility], 2nd [place] [address] 11/29/2024 11:00 AM EDT Office Visit Pav CC Head, Neck & Respiratory 800 [facility], 2nd [place] [address] Satnam Colvin MD 800 [facility] [address] [place] [address] 11/29/2024 12:30 PM EDT Appointment [facility] 1 [address] [place] [address] 11/30/2024 1:30 PM EDT Appointment [facility] 1 [address] [place] [address] 12/01/2024 2:00 PM EDT Appointment [facility] 1 [address] [place] [address] 12/06/2024 11:40 AM EDT Appointment P[facility] CC Radiation 800 [facility]. [id number] [place] [address] Haven Blum, MEDICAL INFORMATION SPECIALIST 800 [facility] [address] [place] [address] 01/19/2025 9:30 AM EDT Appointment PAV S Radiology [address], 1st [place] [address] 01/19/2025 10:45 AM EDT Office Visit [place] [facility] [address], 1st [place] [address] Abhilash Bangura MD [address] [place] [address] 03/08/2025 1:00 PM EDT Office Visit [facility] [place] W[facility] [address] [place] [address] Teresita Oconnell MD [address] [place] [address] documented as of this encounter Procedures Procedure Name Priority Date/Time Associated Diagnosis Comments XR OUTSIDE IMAGES 11/15/2024 2:42 PM EDT documented in this encounter Results * XR OUTSIDE IMAGES (11/15/2024 2:42 PM EDT) Anatomical Region Laterality Modality Radiographic Carolyne ging 11/15/2024 2:42 PM EDT Regina Katz MEDICAL INFORMATION SPECIALIST IMG XR PROCEDURES Final Res ult documented in this encounter Visit Diagnoses Not on filedocumented in this encounter Additional Health Concerns Infection Onset Date Last Indicated Resolved Time 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, IMPREGNATOR ELECTROLYTIC CAPACITORS Panic 10/26/2024 10/31/2024 Assessment Noted Time PHQ-9 Depression Total Score: 0 09/01/19 25 3:26 PM EDT A fall risk assessment has been complete d for the patient 11/10/2024 2:43 PM EDT A Body Mass Index follow-up plan has been documented for the patient 11/08/2024 5:14 PM EDT documented as of this encounter Care Teams Rollway Man Relationship Specialty Start Date End Date Laurie Gutierrez MD [address] [place] [address] PCP - General 12/09/23 Joshua Martínez MD [address] [place] [address] Consulting Physician Radiation Oncology 09/19/24 Paradise Pacheco, RN [facility]-VASCULAR & INTERVENTIONAL RADIOLOGY Registered Nurse 11/21/24 11/21/24 documented as of this encounter
--- OUTSIDE RECORDS SUMMARY | 2024-11-25 15:51 | XMS_ITS | Encounter Summary ---
Author Organization Healthcare Address [address] [place] [address] Care Team Providers Care Gospel Singer Name Role Phone Laurie Gutierrez MD Primary Care Provider [phone] Joshua Martínez MD Unavailable Jasmina Smith LPN [...] drink first t laurie in the morning (EYE-CHIP FRIER) to steady your nerves or to get [...] [facility], 2nd [place] [address] 11/29/2024 11:00 AM EDT Office Visit Pav CC Head, Neck & Respiratory 800 [facility], 2nd [place] [address] Satnam Colvin MD 800 [facility] Nuria Degroot [facility] [address] [place] [address] 11/29/2024 12:30 PM EDT Appointment [facility] 1 [address] [place] [address] 11/30/2024 1:30 PM EDT Appointment [facility] 1 [address] [place] [address] 12/01/2024 2:00 PM EDT Appointment [facility] 1 [address] [place] [address] 12/06/2024 11:40 AM EDT Appointment [facility] CC Radiation 800 [facility]. [id number] [place] [address] Haven Blum, BLOW MOLD OPERATOR 800 [facility] [address] [place] [address] 01/19/2025 9:30 AM EDT Appointment P[facility] S Radiology [address], 1st [place] [address] 01/19/2025 10:45 AM EDT Office Visit [place] [facility] [address], 1st [place] [address] Abhilash Bangura MD [address] [place] [address] 03/08/2025 1:00 PM EDT Office Visit [facility] [place] W[place]o [address] [place] [address] Teresita Oconnell MD [address] [place] [address] documented as of this encounter [...] documented as of this encounter Care Teams Gospel Singer Relationship Specialty Start Date End Date Laurie Gutierrez MD [address] [place], [place] [id number] PCP - General 12/09/23 Joshua Martínez MD [address] [place], [place] [address]D [place] [address] Consulting Physician Radiation Oncology 09/19/24 Jasmina Smith LPN VALUE-BASED TRANSFORMATION [place] [address] TCM Nurse 10/19/24 11/01/24 documented as of this encounter
--- OUTSIDE RECORDS SUMMARY | 2024-11-25 15:51 | XMS_ITS | Encounter Summary ---
Author Organization Healthcare Address [address] [place] [address] Care Team Providers Care Assistant Hairstylist Name Role Phone Laurie Gutierrez MD Primary Care Provider [phone] Joshua Martínez MD Unavailable Jasmina Smith LPN Unavailable Unavailable Encounter Details Date Type Department Care Team (Late st Contact Info) Description 10/26/2024 Orders Only [facility] CC Radiation [id number] [place] [address] Radiation Oncology, Physician, [address] [place], [place] [id number] Social History Tobacco Use Types Packs/Day Years [...] any time in the [facility] were [facility] homeless or living in [...] drink first t laurie in the morning (EYE-ADVANCED PRACTICE NURSE PSYCHOTHERAPIST) to steady your nerves or to get [...] Pav CC Head, Neck & Respiratory 800 [facility], 2nd [place] [address] 11/29/2024 11:00 AM EDT Office Visit Pav CC Head, Neck & Respiratory 800 [facility], 2nd [place] [address] Satnam Colvin MD 800 [facility] [address] [place] [address] 11/29/2024 12:30 PM EDT Appointment [facility] 1 [address] [place] [address] 11/30/2024 1:30 PM EDT Appointment [facility] 1 [address] [place] [address] 12/01/2024 2:00 PM EDT Appointment [facility] 1 [address] [place] [address] 12/06/2024 11:40 AM EDT Appointment [facility] CC Radiation 800 [facility]. [id number] [place] [address] Haven Blum, MOBILE NURSE 800 [facility] [address] [place] [address] 01/19/2025 9:30 AM EDT Appointment [facility] S Radiology [address], 1st [place] [address] 01/19/2025 10:45 AM EDT Office Visit [place] [facility] [address], 1st [place] [address] Abhilash Bangura MD [address] [place] [address] 03/08/2025 1:00 PM EDT Office Visit [facility] [place] 800 [facility]. [address] [place] [address] Teresita Oconnell MD [address] [place] [address] documented as of this encounter [...] as of this encounter Care Teams Assistant Hairstylist Relationship Specialty Start Date End Date Laurie Gutierrez MD [address] [place] [address] PCP - General 12/09/23 Joshua Martínez MD [address] [place] [address] Consulting Physician Radiation Oncology 09/19/24 Jasmina Smith LPN VALUE-BASED [place] [address] [facility] Nurse 10/19/24 11/01/24 documented as of this encounter
--- OUTSIDE RECORDS SUMMARY | 2024-11-25 15:51 | XMS_ITS | Encounter Summary ---
Author Organization Healthcare Address [address] [place] [address] Care Team Providers Care Radiology Special Procedure Tech Name Role Phone Laurie Gutierrez MD Primary Care Provider [phone] Joshua Martínez MD Unavailable Encounter Details Date [...] drink first t laurie in the morning (EYE-FAMILY LITERACY COORDINATOR) to steady your nerves or to get rid of a hangover? 0 10/27/2024 CAGE Questionnaire Score 0 025 Utilities Answer Date Recorded In the past 12 months has e [employer], gas, oil, or water company threatened to [...] Upcoming Encounters Date Type Department Care Team ([facility] st Contact Info) Description 11/29/2024 10:30 AM EDT Clinical Support Pav [facility] Head, Neck & Respiratory [address] [facility], 2nd [place] [address] 11/29/2024 11:00 AM EDT Office Visit Pav CC Head, Neck & Respiratory [address] [facility], 2nd [place] [address] Satnam Colvin MD [address] [facility] [address] [place] [address] 11/29/2024 12:30 PM EDT Appointment [facility] 1 [address] [place] [address] 11/30/2024 1:30 PM EDT Appointment [facility] 1 [address] [place] [address] 12/01/2024 2:00 PM EDT Appointment [facility] 1 [address] [place] [address] 12/06/2024 11:40 AM EDT Appointment PAV CC Radiation [address] [facility]. [id number] [place] [address] Haven Blum, RESEARCH DAIRY FARM SUPERVISOR [address] [facility] [address] [place] [address] 01/19/2025 9:30 AM EDT Appointment PAV S Radiology [address], 1st [place] [address] 01/19/2025 10:45 AM EDT [facility] [place] [facility] [address], 1st [place] [address] Abhilash Bangura MD [address] [place] [address] 03/08/2025 1:00 PM EDT Office Visit [facility] [place] [address] 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, METAL PICKLING EQUIPMENT OPERATOR Panic 10/26/2024 10/31/2024 Assessment Noted Time PHQ-9 Depression Total Score: 0 09/01/19 3:26 PM EDT A fall risk assessment has been complete d for the patient 11/10/2024 2:43 PM EDT A Body Mass Index follow-up plan has been documented for the patient 11/08/2024 5:14 PM EDT documented as of this encounter Care Teams Radiology Special Procedure Tech Relationship Specialty Start Date End Date Laurie Gutierrez MD [address] [place] [address] PCP - General 12/09/23 Joshua Martínez MD [address] [place], [place] [id number] [place] [address] Consulting Physician Radiation Oncology 09/19/24 documented as of this encounter
--- OUTSIDE RECORDS SUMMARY | 2024-11-25 15:51 | XMS_ITS | Encounter Summary ---
Author Organization [facility] Address [address] [place] [address] Care Team Providers Care Building Services Technician Name Role Phone Laurie Gutierrez MD Primary Care Provider [phone] Joshua Martínez MD Unavailable Jasmina Smith LPN [...] first t laurie in the morning (EYE-CONTRACT CLERK AUTOMOBILE) to steady your nerves or to get [...] [facility], 2nd [place] [address] 11/29/2024 11:00 AM EDT Office Visit Pav CC Head, Neck & Respiratory 800 [facility] 2nd [place] [address] Satnam Colvin MD 800 [facility] [address] [place] [address] 11/29/2024 12:30 PM EDT Appointment [facility] 1 [address] [place] [address] 11/30/2024 1:30 PM EDT Appointment [facility] 1 [address] [place] [address] 12/01/2024 2:00 PM EDT Appointment [facility] 1 [address] [place] [address] 12/06/2024 11:40 AM EDT Appointment PAV CC Radiation 800 [facility]. [id number] [place] [address] Haven Blum, DATA ASSISTANT 800 [facility] [address] [place] [address] 01/19/2025 9:30 AM EDT Appointment PAV S Radiology [address], 1st [place] [address] 01/19/2025 10:45 AM EDT Office Visit [place] [facility] [address], 1st [place] [address] Abhilash Bangura MD [address] [place] [address] 03/08/2025 1:00 PM EDT Office Visit [facility] [place] [facility] [address] [place] [address] Teresita Oconnell MD [address] [place] [address] documented as of this [...] as of this encounter Care Teams Building Services Technician Relationship Specialty Start Date End Date Laurie Gutierrez MD [address] [place], [place] [id number] PCP - General 12/09/23 Joshua Martínez MD [address] [place] [address] Consulting Physician Radiation Oncology 09/19/24 Jasmina Smith LPN VALUE-BASED [place] [address] TCM Nurse 10/19/24 11/01/24 documented as of this encounter
--- OUTSIDE RECORDS SUMMARY | 2024-11-25 15:51 | XMS_ITS | Encounter Summary ---
Author Organization Healthcare Address [address] [place] [address] Care Team Providers Care Packing Floor Worker Name Role Phone Laurie Gutierrez MD Primary Care Provider Joshua Martínez MD Unavailable Paradise Pacheco RN Unavailable Unavailab le Encounter Details Date Type Department Care Team (Late st Contact Info) Description 11/15/2024 Orders Only External Location [address] [place] [address] Regina Katz D, RECRUITMENT DIRECTOR [address] [place] [address] Social History Tobacco Use Types [...] in a senior care (including now)? No 11/21/2024 CAGE ASSESSMENT Answer [...] drink first t laurie in the morning (EYE-AUCTION CLERK) to steady your nerves or to [...] Head, Neck & Respiratory 800 [facility], 2nd [place] [address] 11/29/2024 11:00 AM EDT Office Visit Pav CC Head, Neck & Respiratory [address] [facility], 2nd [place] [address] Satnam Colvin MD [address] [facility] [address] [place] [address] 11/29/2024 12:30 PM EDT Appointment [facility] 1 [address] [place] [address] 11/30/2024 1:30 PM EDT Appointment [facility] 1 [address] [place] [address] 12/01/2024 2:00 PM EDT Appointment [facility] 1 [address] [place] [address] 12/06/2024 11:40 AM EDT Appointment PAV CC Radiation [address] [facility]. [id number] [place] [address] Haven Blum, RECRUITMENT DIRECTOR [address] [facility] [address] [place] [address] 01/19/2025 9:30 AM EDT Appointment PAV S Radiology [address], 1st [place] [address] 01/19/2025 10:45 AM EDT Office Visit [place] [facility] [address], 1st [place] [address] Abhilash Bangura MD [address] [place] [address] 03/08/2025 1:00 PM EDT Office Visit [facility] [place] [address] [place] [address] Teresita Oconnell MD [address] [place] [address] documented as of this encounter Procedures Procedure Name Priority Date/Time Associated Diagnosis Comments XR MSK OUTSIDE IMAGES 11/15/2024 2:42 PM EDT documented in this encounter Results * XR MSK OUTSIDE IMAGES (11/15/2024 2:42 PM EDT) Anatomical Region Laterality Modality Radiographic Carolyne ging 11/15/2024 2:42 PM EDT Regina Katz RECRUITMENT DIRECTOR IMG XR PROCEDURES Final Res ult documented in this encounter Visit Diagnoses Not on filedocumented in this encounter Additional Health Concerns Infection Onset Date Last Indicated Resolved Time 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, PLASTER HELPER Panic 10/26/2024 10/31/2024 Assessment Noted Time PHQ-9 Depression Total Score: 0 09/01/19 3:26 PM EDT A fall risk assessment has been complete d for the patient 11/10/2024 2:43 PM EDT A Body Mass Index follow-up plan has been documented for the patient 11/08/2024 5:14 PM EDT documented as of this encounter Care Teams Packing Floor Worker Relationship Specialty Start Date End Date Laurie Gutierrez MD [address] [place] [address] PCP - General 12/09/23 Joshua Martínez MD [address] [place] [address] Consulting Physician Radiation Oncology 09/19/24 Paradise Pacheco, RN CH-VASCULAR & INTERVENTIONAL RADIOLOGY Registered Nurse 11/21/24 11/21/24 documented as of this encounter
--- OUTSIDE RECORDS SUMMARY | 2024-11-25 15:51 | XMS_ITS | Encounter Summary ---
Author Organization Healthcare Address [address] [place] [address] Care Team Providers Care Storage And Backup Administrator Name Role Phone Laurie Gutierrez MD Primary Care Provider [phone] Joshua Martínez MD Unavailable Paradise Pacheco RN Unavailable Unavailab le Encounter Details Date Type Department Care Team (Late st Contact Info) Description 11/15/2024 Orders Only External Location [address] [place] [address] Regina Katz D, BREAKFAST COOK [address] [place] [address] Social History Tobacco Use Types [...] in a long term (including now)? No 11/21/2024 CAGE ASSESSMENT Answer [...] drink first t laurie in the morning (EYE-BRAINER) to steady your nerves or to get [...] (Past 1 Month) No 025 7:39 AM Folr Santana RN 2. Non-Specific Active Suici radha [...] Respiratory 800 [facility], 2nd [place] [address] 11/29/2024 11:00 AM EDT Office Visit Pav CC Head, Neck & Respiratory [address] [facility], 2nd [place] [address] Satnam Colvin MD 800 [facility] [address] [place] [address] 11/29/2024 12:30 PM EDT Appointment [facility] 1 [address] [place] [address] 11/30/2024 1:30 PM EDT Appointment [facility] 1 [address] [place] [address] 12/01/2024 2:00 PM EDT Appointment [facility] 1 [address] [place] [address] 12/06/2024 11:40 AM EDT Appointment PAV CC Radiation [address] [facility]. [id number] [place] [address] Haven Blum, BREAKFAST COOK [address] [facility] [address] [place] [address] 01/19/2025 9:30 AM EDT Appointment PAV S Radiology [address], 1st [place] [address] 01/19/2025 10:45 AM EDT Office Visit [place] [facility] [address], 1st [place] [address] Abhilash Bangura MD [address] [place] [address] 03/08/2025 1:00 PM EDT Office Visit [facility] [place] [facility] 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 Panic 10/26/2024 10/31/2024 Assessment Noted Time PHQ-9 Depression Total Score: 0 09/01/19 3:26 PM EDT A fall risk assessment has been complete d for the patient 11/10/2024 2:43 PM EDT A Body Mass Index follow-up plan has been documented for the patient 11/08/2024 5:14 PM EDT documented as of this encounter Care Teams Storage And Backup Administrator Relationship Specialty Start Date End Date Laurie Gutierrez MD [address] [place] [address] PCP - General 12/09/23 Joshua Martínez MD [address] [place] [address] Consulting Physician Radiation Oncology 09/19/24 Paradise Pacheco, RN CH-VASCULAR & INTERVENTIONAL RADIOLOGY Registered Nurse 11/21/24 11/21/24 documented as of this encounter
--- OUTSIDE RECORDS SUMMARY | 2024-11-25 15:51 | XMS_ITS | Encounter Summary ---
Author Organization Healthcare Address [address] [place] [address] Care Team Providers Care Business Continuity Manager Name Role Phone Laurie Gutierrez MD Primary Care Provider [phone] Joshua Martínez MD Unavailable Jasmina Smith LPN Unavailable Unavailable Encounter Details Date Type Department Care Team (Late st Contact Info) Description 10/24/2024 Orders Only [facility] CC Radiation [id number] [place] [address] Radiation Oncology, Physician, [facility] [place] [id number] Social History Tobacco Use Types Packs/Day Years [...] in a detention (including now)? No 10/14/2024 CAGE ASSESSMENT Answer [...] first t laurie in the morning (EYE-MANAGER SPRING) to steady your nerves or to get rid of a hangover? 0 11/19/2023 CAGE Questionnaire Score 0 024 Utilities Answer Date Recorded In the past 12 months has [facility] electric, gas, oil, or water company threatened to shut off services in your home? No 10/14/2024 Comments No Sex and Gender Information Value Date Recorded Sex Assigned at Not on file Legal Sex Female 8:32 PM EDT Gender Identity Not on file Sexual Orientation Not on file documented as of this encounter Plan of Treatment Upcoming Encounters Date Type Department Care Team ([facility] Contact Info) Description 11/29/2024 10:30 AM EDT Clinical Support Pav CC Head, Neck & Respiratory 800 [facility] 2nd [place] [address] 11/29/2024 11:00 AM EDT Office Visit Pav CC Head, Neck & Respiratory 800 [facility] 2nd [place] [address] Satnam Colvin MD 800 [facility] [address] [place] [address] 11/29/2024 12:30 PM EDT Appointment [facility] 1 7[address] [place] [address] 11/30/2024 1:30 PM EDT Appointment [facility] 1 [address] [place] [address] 12/01/2024 2:00 PM EDT Appointment [facility] 1 [address] [place] [address] 12/06/2024 11:40 AM EDT Appointment PAV CC Radiation 800 [facility]. [id number] [place] [address] Haven Blum, TAB BUILDER 800 [facility] [address] [place] [address] 01/19/2025 9:30 AM EDT Appointment PAV S Radiology [address], 1st [place] [address] 01/19/2025 10:45 AM EDT Office Visit [place] [facility] [address], 1st [place] [address] Abhilash Bangura MD [address] [place] [address] 03/08/2025 1:00 PM EDT Office Visit [facility] [place] [facility] [address] [place] [address] Teresita Oconnell MD [address] [place] [address] documented as of this encounter [...] documented as of this encounter Care Teams Business Continuity Manager Relationship Specialty Start Date End Date Laurie Gutierrez MD [address] [place] [address] PCP - General 12/09/23 Joshua Martínez MD [address] [place], [place] [id number] [place] [address] Consulting Physician Radiation Oncology 09/19/24 Jasmina Smith LPN VALUE-[place]ED [place] [address] TCM Nurse 10/19/24 11/01/24 documented as of this encounter
--- NOTE | 2024-11-25 15:52 | CARE MANAGER ---
Spoke with patient this morning regarding discharge planning. Patient stated that she does not want to go to SNF and feels she won't be able to attend outpatient therapy due to chemo. She will not be eligible for services r/t medicaid.
--- OUTSIDE RECORDS SUMMARY | 2024-11-25 15:52 | XMS_ITS | Encounter Summary ---
Author Organization Healthcare Address [address] [place] [address] Care Team Providers Care Slubber Machine Operator Name Role Phone Laurie Gutierrez MD Primary Care Provider [phone] Joshua Martínez MD Unavailable Encounter Details Date [...] first t laurie in the morning (EYE-TRAVELING OPERATOR) to steady your nerves or to get rid of a hangover? 0 10/27/2024 CAGE Questionnaire Score 0 025 Utilities Answer Date Recorded In the past 12 months has [employer], gas, oil, or water company threatened to shut off services in your home? No 11/21/2024 Comments No Sex and Gender Information Value Date Recorded Sex Assigned at Not on file Legal Sex Female 8:32 PM EDT Gender Identity Not on file Sexual Orientation Not on file documented as of this encounter Plan of Treatment Upcoming Encounters Date Type Department Care Team ([facility] Contact Info) Description 11/29/2024 10:30 AM EDT Clinical Support Pav CC Head, Neck & Respiratory 800 [facility], 2nd [place] [address] 11/29/2024 11:00 AM EDT Office Visit Pav CC Head, Neck & Respiratory 800 [facility], 2nd [place] [address] Satnam Colvin MD 800 [facility] [address] [facility] 134 [place] [address] 11/29/2024 12:30 PM EDT Appointment [facility] 1 [address] [place] [address] 11/30/2024 1:30 PM EDT Appointment [facility] 1 [address] [place] [address] 12/01/2024 2:00 PM EDT Appointment [facility] 1 [address] [place] [address] 12/06/2024 11:40 AM EDT Appointment PAV CC Radiation [address] [place] [address] Haven Blum, AND TAXI INSTRUCTOR BUS TROLLEY 800 [facility] [address] [place] [address] 01/19/2025 9:30 AM EDT Appointment PAV S Radiology [address], 1st [place] [address] 01/19/2025 10:45 AM EDT Office [facility] [place] [facility] [address], 1st [place] [address] Abhilash Bangura MD [address] [place] [address] 03/08/2025 1:00 PM EDT Office Visit [facility] [place] 800 [facility]. 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, MARINE PIPEFITTER Panic 10/26/2024 10/31/2024 Assessment Noted Time PHQ-9 Depression Total Score: 0 09/01/19 25 3:26 PM EDT A fall risk assessment has been complete d for the patient 11/10/2024 2:43 PM EDT A Body Mass Index follow-up plan has been documented for the patient 11/22/2024 4:27 PM EDT documented as of this encounter Care Teams Slubber Machine Operator Relationship Specialty Start Date End Date Laurie Gutierrez MD [address] [place] [address] PCP - General 12/09/23 Joshua Martínez MD [address] [place] [address] [address] [place] [address] Consulting Physician Radiation Oncology 09/19/24 documented as of this encounter
--- OUTSIDE RECORDS SUMMARY | 2024-11-25 15:52 | XMS_ITS | Encounter Summary ---
Author Organization Healthcare Address [address] [place] [address] Care Team Providers Care Veterinary Practice Manager Name Role Phone Laurie Gutierrez MD Primary Care Provider [phone] Joshua Martínez MD Unavailable Encounter Details Date Type Department Care Team ([facility] Contact Info) Description 10/17/2024 Orders Only Pav CC Head, Neck & Respiratory 800 [facility], 2nd [place] [address] Rupa De Santiago, PharmD 800 [facility] 2nd [place] [address] Social History Tobacco Use Types [...] drink first t laurie in the morning (EYE-TRANSIT BUS DRIVER) to steady your nerves or to [...] Pav CC Head, Neck & Respiratory [address] [address] 11/29/2024 11:00 AM EDT Office Visit Pav CC Head, Neck & Respiratory [address] [address] Satnam Colvin MD 800 [facility] Nuria [address] [address] 11/29/2024 12:30 PM EDT Appointment [facility] 1 744 [place] [address] 11/30/2024 1:30 PM EDT Appointment [facility] 1 [address] [place] [address] 12/01/2024 2:00 PM EDT Appointment [facility] [address] [place] [address] 12/06/2024 11:40 AM EDT Appointment P[facility] CC Radiation [address] [place] [address] Haven Blum, INTERNET NETWORK SPECIALIST [address] [place] [address] 01/19/2025 9:30 AM EDT Appointment PAV S Radiology [address], 1st [place] [address] 01/19/2025 10:45 AM EDT Office [facility] [place] [facility] [address], 1st [place] [address] Abhilash Bangura MD [address] [place] [address] 03/08/2025 1:00 PM EDT Office Visit [facility] [place] [address] [place] [address] Teresita Oconnell MD [address] [place] [address] documented as of this encounter [...] documented as of this encounter Care Teams Veterinary Practice Manager Relationship Specialty Start Date End Date Laurie Gutierrez MD [address] [place] [address] PCP - General 12/09/23 Joshua Martínez MD [address] [address] Consulting Physician Radiation Oncology 09/19/24 documented as of this encounter
--- OUTSIDE RECORDS SUMMARY | 2024-11-25 15:52 | XMS_ITS | Encounter Summary ---
Author Organization Healthcare Address [address] [place] [address] Care Team Providers Care Wood Room Hand Name Role Phone Laurie Gutierrez MD Primary Care Provider [phone] Joshua Martníez MD Unavailable Sabine Morales LPN Unavailable Unavailable Reason for Visit * Reason Comments TCM Call Encounter Details Date Type Department Care Team (Late st Contact Info) Description 11/23/2024 Patient Outreach [facility] [address] [facility] [address] [place] [address] Sabine Morales LPN TCM Call [...] first t laurie in the morning (EYE-INDUSTRIAL THERAPIST) to steady your nerves or to [...] Miscellaneous Notes * Progress Notes - Sabine Moraels LPN - 11/23/2024 11:48 AM EDT Admit Date: 11/19/2024 Discharge Date: 11/22/2024 Hospital Service: [facility] Discharge Diagnosis: Atrial fibrillation with rapid [...] Pav CC Head, Neck & Respiratory [address] [address] 11/29/2024 11:00 AM EDT Office Visit Pav CC Head, Neck & Respiratory [address] [address] Satnam Colvin MD 800 [facility] [address] [place] [address] 11/29/2024 12:30 PM EDT Appointment [facility] 1 [address]44 [place] [address] 11/30/2024 1:30 PM EDT Appointment [facility] 1 [address] [place] [address] 12/01/2024 2:00 PM EDT Appointment [facility] [address] [place] [address] 12/06/2024 11:40 AM EDT Appointment [facility] CC Radiation [id number] [place] [address] Haven Blum, PARK INTERPRETER [address] [place] [address] 01/19/2025 9:30 AM EDT Appointment PAV S Radiology [address], 1st [place] [address] 01/19/2025 10:45 AM EDT [facility] [place] [facility] [address], 1st [place] [address] Abhilash Bangura MD [address] [place] [address] 03/08/2025 1:00 PM EDT Office Visit [facility] [place] 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, AUTO WASHER Panic 10/26/2024 10/31/2024 Assessment Noted Time PHQ-9 Depression Total Score: 0 09/01/19 25 3:26 PM EDT A fall risk assessment has been complete d for the patient 11/10/2024 2:43 PM EDT A Body Mass Index follow-up plan has been documented for the patient 11/22/2024 4:27 PM EDT documented as of this encounter Care Teams Wood Room Hand Relationship Specialty Start Date End Date Laurie Gutierrez MD [address] [place] [address] PCP - General 12/09/23 Joshua Martínez MD [address] [place] [address] Consulting Physician Radiation Oncology 09/19/24 Sabine Morales LPN TCM Nurse 11/23/24 documented as of this encounter
--- OUTSIDE RECORDS SUMMARY | 2024-11-25 15:52 | XMS_ITS | Encounter Summary ---
Author Organization Healthcare Address [address] [place] [address] Care Team Providers Care Computer Customer Support Specialist Name Role Phone Laurie Gutierrez MD Primary Care Provider [phone] Joshua Martínez MD Unavailable Sabine Morales LPN Unavailable Unavailable Reason for Visit * Reason Comments TCM Call Encounter Details Date Type Department Care Team (Late st Contact Info) Description 11/24/2024 Patient Outreach [facility] [address] [facility] [place] [address] Sabine Morales LPN TCM Call [...] any time in the past 12 m [facility], were you homeless or living in a [...] any time in the past 12 m [facility], were you homeless or living in a retirement (including now)? No 11/21/2024 CAGE ASSESSMENT Answer [...] drink first t laurie in the morning (EYE-FOLLOW UP CLERK) to steady your nerves or to [...] Date: 11/19/2024 Discharge Date: 11/22/2024 Hospital Service: [facility] Discharge Diagnosis: Atrial fibrillation with rapid [...] [facility] [address] [address] 11/29/2024 11:00 AM EDT Office Visit [facility] [address] [address] Satnam Colvin MD 800 [facility] [place] [address] 11/29/2024 12:30 PM EDT Appointment [facility] 1 744 [place] [address] 11/30/2024 1:30 PM EDT Appointment [facility] 1 744 [place] [address] 12/01/2024 2:00 PM EDT Appointment [facility] [address] [place] [address] 12/06/2024 11:40 AM EDT Appointment [facility] Radiation [address] [id number] [place] [address] Haven Blum, ROLLER SKATE ASSEMBLER [address] [place] [address] 01/19/2025 9:30 AM EDT Appointment P[facility] S Radiology [address], 1st [place] [address] 01/19/2025 10:45 AM EDT Office [facility] [place] [facility] [address], 1st [place] [address] Abhilash Bangura MD [address] [place] [address] 03/08/2025 1:00 PM EDT Office Visit [facility] [place] 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, MOP MACHINE OPERATOR Panic 10/26/2024 10/31/2024 Assessment Noted Time PHQ-9 Depression Total Score: 0 09/01/19 25 3:26 PM EDT A fall risk assessment has been complete d for the patient 11/10/2024 2:43 PM EDT A Body Mass Index follow-up plan has been documented for the patient 11/22/2024 4:27 PM EDT documented as of this encounter Care Teams Computer Customer Support Specialist Relationship Specialty Start Date End Date Laurie Gutierrez MD [address] [place] [address] PCP - General 12/09/23 Joshua Martínez MD [address] [place] [address] Consulting Physician Radiation Oncology 09/19/24 Sabine Morales LPN TCM Nurse 11/23/24 documented as of this encounter
--- OUTSIDE RECORDS SUMMARY | 2024-11-25 15:52 | XMS_ITS | Encounter Summary ---
Author Organization [facility] Address [address] [place] [address] Care Team Providers Care Auto Transport Driver Name Role Phone Laurie Gutierrez MD Primary Care Provider [phone] Joshua Martínez MD Unavailable Encounter Details Date [...] living in a snf (including now)? No 09/06/2024 CAGE ASSESSMENT Answer [...] drink first t laurie in the morning (EYE-PORTER USED CAR LOT) to steady your nerves or to get [...] 800 [facility], 2nd [place] [address] 11/29/2024 11:00 AM EDT Office Visit [facility] Res[facility] 800 [facility], 2nd [place] [address] Satnam Colvin MD 800 [facility] [address] [place] [address] 11/29/2024 12:30 PM EDT Appointment [facility] 1 [address] [place] [address] 11/30/2024 1:30 PM EDT Appointment [facility] 1 [address] [place] [address] 12/01/2024 2:00 PM EDT Appointment [facility] 1 [address] [place] [address] 12/06/2024 11:40 AM EDT Appointment [facility] CC Radiation 800 [facility]. [id number] [place] [address] Haven Blum, CYBER DEFENSE ANALYST [address] [place] [address] 01/19/2025 9:30 AM EDT Appointment P[facility] S Radiology [address], 1st [place] [address] 01/19/2025 10:45 AM EDT Office Visit [place] [facility] [address], 1st [place] [address] Abhilash Bangura MD [address] [place] [address] 03/08/2025 1:00 PM EDT Office Visit [facility] [place] [address] [place] [address] Teresita Oconnell MD [address] [place] [address] documented as of this encounter [...] documented as of this encounter Care Teams Auto Transport Driver Relationship Specialty Start Date End Date Laurie Gutierrez MD [address] [place] [address] PCP - General 12/09/23 Joshua Martínez MD [address] [place] [address] Consulting Physician Radiation Oncology 09/19/24 documented as of this encounter
--- OUTSIDE RECORDS SUMMARY | 2024-11-25 15:53 | XMS_ITS | Encounter Summary ---
Author Organization Healthcare Address [address] [place] [address] Care Team Providers Care Operations Dispatcher Name Role Phone Laurie Gutierrez MD Primary Care Provider [phone] Joshua Martínez MD Unavailable Jasmina Smith LPN Unavailable Unavailable Encounter Details Date Type Department Care Team (Late st Contact Info) Description 10/19/2024 Telephone [facility] [place] [address] [place] [address] Teresita Oconnell MD [address] [place] [address] Social History Tobacco Use Types [...] drink first t laurie in the morning (EYE-CADDIE SUPERVISOR) to steady your nerves or to [...] [facility] clinic would be made with EP imaging scheduler and she would be notified later today of date and time. Also advised her to encourage patient to rest and drink plenty of fluids as dehydration and additional stress to the body such as the cancer and the chemo would cause her a-fib to be worse. Era verbalized understanding. Messagesent to EP imaging scheduler Ashly Gerard to arrange [facility] visit. * Telephone Encounter - Susan Lloyd - 10/19/2024 11:26 AM EDT Clinical Concern/Question Reason for Call: PT experiencing extreme elevated heart rate to where she cannot walk and fatigue. Asking if there is something prescribed she can take now or if something can be prescribed. Please call [facility] Best contact number: Other: [phone] Optimal time of day to reach caller: [...] heart rate and fatigue? Best contact number: [phone] Optimal time of day to reach caller: [...] Respiratory 800 [facility], 2nd [place] [address] 11/29/2024 11:00 AM EDT Office Visit [facility] Respiratory 800 [facility], 2nd [place] [address] Satnam Colvin MD 800 [facility] Nuria Degroot [facility] [address] [place] [address] 11/29/2024 12:30 PM EDT Appointment [facility] 1 [address] [place] [address] 11/30/2024 1:30 PM EDT Appointment [facility] 1 [address] [place] [address] 12/01/2024 2:00 PM EDT Appointment [facility] 1 [address] [place] [address] 12/06/2024 11:40 AM EDT Appointment [facility] Radiation 800 [facility]. [id number] [place] [address] Haven Blum, PERSONAL FITNESS TRAINER [address] [place] [address] 01/19/2025 9:30 AM EDT Appointment [facility] S Radiology [address], 1st [place] [address] 01/19/2025 10:45 AM EDT Office Visit [place] [facility] [address], 1st [place] [address] Abhilsah Bangura MD [address] [place] [address] 03/08/2025 1:00 PM EDT Office Visit [facility] [place] [address] [place] [address] Teresita Oconnell MD [address] [place] [address] documented as of this encounter [...] documented as of this encounter Care Teams Operations Dispatcher Relationship Specialty Start Date End Date Laurie Gutierrez MD [address] [place] [address] PCP - General 12/09/23 Joshua Martínez MD [address] [place] [address] Consulting Physician Radiation Oncology 09/19/24 Jasmina Smith LPN VALUE-BASED [place] [address] [facility] Nurse 10/19/24 11/01/24 documented as of this encounter
--- OUTSIDE RECORDS SUMMARY | 2024-11-25 15:53 | XMS_ITS | Encounter Summary ---
Author Organization [facility] Address [address] [place] [address] Care Team Providers Care Slice Cutting Machine Operator Name Role Phone Laurie Gutierrez MD Primary Care Provider [phone] Joshua Martínez MD Unavailable Encounter Details Date [...] first t laurie in the morning (EYE-MARINE SURVEYOR) to steady your nerves or to get [...] Respiratory 800 [facility], 2nd [place] [address] 11/29/2024 11:00 AM EDT Office Visit [facility] Head[facility] Neck [facility] Respiratory 800 [facility], 2nd [place] [address] Satnam Colvin MD 800 [facility] [address] [place] [address] 11/29/2024 12:30 PM EDT Appointment [facility] 1 [address] [place] [address] 11/30/2024 1:30 PM EDT Appointment [facility] 1 [address] [place] [address] 12/01/2024 2:00 PM EDT Appointment [facility] 1 [address] [place] [address] 12/06/2024 11:40 AM EDT Appointment [facility] Radiation 800 [facility]. [id number] [place] [address] Haven Blum APRN [address] [place] [address] 01/19/2025 9:30 AM EDT Appointment P[facility] S Radiology [address], 1st [place] [address] 01/19/2025 10:45 AM EDT Office Visit [place] [facility] [address], 1st [place] [address] Abhilash Bangura MD [address] [place] [address] 03/08/2025 1:00 PM EDT Office Visit [facility] [place] [address] [place] [address] Teresita Oconnell MD [address] [place] [address] documented as of this [...] documented as of this encounter Care Teams Slice Cutting Machine Operator Relationship Specialty Start Date End Date Laurie Gutierrez MD [address] [place] [address] PCP - General 12/09/23 Joshua Martínez MD [address] [place] [address] Consulting Physician Radiation Oncology 09/19/24 documented as of this encounter
--- OUTSIDE RECORDS SUMMARY | 2024-11-25 15:53 | XMS_ITS | Encounter Summary ---
Author Organization [facility] Address [address] [place] [address] Care Team Providers Care Dietitian Assistant Name Role Phone Laurie Gutierrez MD Primary Care Provider [phone] Joshua Martínez MD Unavailable Encounter Details Date [...] drink first t laurie in the morning (EYE-CARDIAC CATHETERIZATION TECHNOLOGIST) to steady your nerves or to get [...] [facility], 2nd [place] [address] 11/29/2024 11:00 AM EDT Office Visit [facility] Head[facility] Neck & Respiratory 800 [facility], 2nd [place] [address] Satnam Colvin MD 800 [facility] [address] [place] [address] 11/29/2024 12:30 PM EDT Appointment [facility] 1 [address] [place] [address] 11/30/2024 1:30 PM EDT Appointment [facility] 1 [address] [place] [address] 12/01/2024 2:00 PM EDT Appointment [facility] 1 [address] [place] [address] 12/06/2024 11:40 AM EDT Appointment [facility] Radiation 800 [facility]. [id number] [place] [address] Haven Blum APRN [address] [place] [address] 01/19/2025 9:30 AM EDT Appointment P[facility] S Radiology [address], 1st [place] [address] 01/19/2025 10:45 AM EDT Office Visit [place] [facility] [address], 1st [place] [address] Abhilash Bangura MD [address] [place] [address] 03/08/2025 1:00 PM EDT Office Visit [facility] [place] [address] [place] [address] Teresita Oconnell MD [address] [place] [address] documented as of this encounter [...] documented as of this encounter Care Teams Dietitian Assistant Relationship Specialty Start Date End Date Laurie Gutierrez MD [address] [place] [address] PCP - General 12/09/23 Joshua Martínez MD [address] [place] [address] Consulting Physician Radiation Oncology 09/19/24 documented as of this encounter
--- OUTSIDE RECORDS SUMMARY | 2024-11-25 15:53 | XMS_ITS | Encounter Summary ---
Author Organization Healthcare Address [address] [place] [address] Care Team Providers Care Timber Cruiser Name Role Phone Laurie Gutierrez MD Primary Care Provider [phone] Joshua Martínez MD Unavailable Jasmina Smith GEOGRAPHIC INFORMATION SYSTEM SURVEYOR Unavailable Unavailable Reason for Visit * Reason Onset Date Comments HCN - Patient Message 10/12/2024 Call back Encounter Details Date Type Department Care Team (Late st Contact Info) Description 10/12/2024 Telephone [place] [facility] [address], 1st [place] [address] Abhilash Bangura MD [address] [place] [address] HCN - Patient Message (Call [...] drink first t laurie in the morning (EYE-PSYCHOLOGICAL OPERATIONS OFFICER) to steady your nerves or to [...] optimal time of day to reach caller: [phone] anytime Note: Please do not reply to this message. Follow-up communication and further actions as a result of this message need to be communicated with the patient directly, if the patient is not active onMyChart. If the patient is active on MyChart, they will receive notification of the communication/outcome via AppSharehart. documented in this encounter Plan of Treatment Upcoming Encounters Date Type Department Care Team (Late st Contact Info) Description 11/29/2024 10:30 AM EDT Clinical Support [facility] Neck [facility] Respiratory 800 [facility], 2nd [place] [address] 11/29/2024 11:00 AM EDT Office Visit [facility] Head[facility] Neck [facility] Respiratory 800 [facility], 2nd [place] [address] Satnam Colvin MD 800 [facility] [address] [place] [address] 11/29/2024 12:30 PM EDT Appointment [facility] 1 [address] [place] [address] 11/30/2024 1:30 PM EDT Appointment [facility] 1 [address] [place] [address] 12/01/2024 2:00 PM EDT Appointment [facility] 1 [address] [place] [address] 12/06/2024 11:40 AM EDT Appointment [facility] CC Radiation 800 [facility]. [id number] [place] [address] Haven Blum, BOLT THREADER [address] [facility] [address] [place] [address] 01/19/2025 9:30 AM EDT Appointment P[facility] S Radiology [address], 1st [place] [address] 01/19/2025 10:45 AM EDT Office [facility] [place] [facility] [address], 1st [place] [address] Abhilash Bangura MD [address] [place] [address] 03/08/2025 1:00 PM EDT Office Visit [facility] [place] [address] 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 [address] [place] [address] Consulting Physician Radiation Oncology 09/19/24 Jasmina Smith LPN VALUE-BASED [place] [address] TCM Nurse 10/19/24 11/01/24 documented as of this encounter
--- OUTSIDE RECORDS SUMMARY | 2024-11-25 15:53 | XMS_ITS | Encounter Summary ---
Author Organization Healthcare Address [address] [place] [address] Care Team Providers Care Regulator Inspector Name Role Phone Laurie Gutierrez MD Primary Care Provider [phone] Joshua Martínez MD Unavailable Jasmina Smith LPN Unavailable Unavailable Reason for Visit * Reason Comments TCM Call Encounter Details Date Type Department Care Team (Late st Contact Info) Description 10/19/2024 Patient Outreach POPULATION HEALTH [address] [facility] [place] [place] [address] Jasmina Smith LPN VALUE-BASED [place] [address] TCM Call Social History Tobacco Use Types [...] first t laurie in the morning (EYE-JUNIOR DATA ANALYST) to steady your nerves or to get rid of a hangover? 0 10/27/2024 CAGE Questionnaire Score 0 025 Utilities Answer Date Recorded In the past 12 months has th e [employer], gas, oil, or water company threatened to [...] and aware of stop medication listed below. SDAL assessment is up to date, no issue with transportation. Snehat is active, aware of upcoming appointments at [facility]. Action: Follow up call after [...] to diagnosis and patient admitted [facility] until 11[facility]10[facility]2024. documented in this encounter Plan of Treatment Upcoming Encounters Date Type Department Care Team ([facility] st Contact Info) Description 11/29/2024 10:30 AM EDT Clinical Support [facility] Head[facility] Neck [facility] Respiratory [address] 2nd Floor [place] [phone] 11/29/2024 11:00 AM EDT Office Visit [facility] Head[facility] Neck & Respiratory 800 [facility], 2nd [place] [address] Satnam Colvin MD 800 [facility] [address] [place] [address] 11/29/2024 12:30 PM EDT Appointment [facility] 1 [address] [place] [address] 11/30/2024 1:30 PM EDT Appointment [facility] 1 [address] [place] [address] 12/01/2024 2:00 PM EDT Appointment [facility] 1 [address] [place] [address] 12/06/2024 11:40 AM EDT Appointment [facility] CC Radiation 800 [facility]. [id number] [place] [address] Haven Blum, AGRICULTURE DEPARTMENT CHAIR 800 [facility] [address] [place] [address] 01/19/2025 9:30 AM EDT Appointment [facility] S Radiology [address], 1st [place] [address] 01/19/2025 10:45 AM EDT Office [facility] [place] [facility] [address], 1st [place] [address] Abhilash Bangura MD [address] [place] [address] 03/08/2025 1:00 PM EDT Office Visit [facility] [place] W[facility] 800 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, PLANT BIOLOGY PROFESSOR Panic 10/26/2024 10/31/2024 Assessment Noted Time PHQ-9 Depression Total Score: 0 09/01/19 3:26 PM EDT A fall risk assessment has been complete d for the patient 10/06/2024 2:29 PM EDT A Body Mass Index follow-up plan has been documented for the patient 10/18/2024 11:56 AM EDT documented as of this encounter Care Teams Regulator Inspector Relationship Specialty Start Date End Date Laurie Gutierrez MD [address] [place] [address] PCP - General 12/09/23 Joshua Martínez MD [address] [place] [phone] Consulting Physician Radiation Oncology 09/19/24 Jasmina Smith LPN VALUE-BASED [place] [address] TCM Nurse 10/19/24 11/01/24 documented as of this encounter
--- OUTSIDE RECORDS SUMMARY | 2024-11-25 15:53 | XMS_ITS | Encounter Summary ---
Author Organization [facility] Address [address] [place] [address] Care Team Providers Care Enterprise Business Architect Name Role Phone Laurie Gutierrez MD Primary Care Provider [phone] Joshua Martínez MD Unavailable Encounter Details Date [...] in a mcc (including now)? 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) to steady your nerves or to get [...] Respiratory 800 [facility], 2nd [place] [address] 11/29/2024 11:00 AM EDT Office Visit Pav [facility] Head[facility] Neck & Respiratory 800 [facility], 2nd [place] [address] Satnam Colvin MD 800 [facility] [address] [place] [address] 11/29/2024 12:30 PM EDT Appointment [facility] 1 [address] [place] [address] 11/30/2024 1:30 PM EDT Appointment [facility] 1 [address] [place] [address] 12/01/2024 2:00 PM EDT Appointment [facility] 1 [address] [place] [address] 12/06/2024 11:40 AM EDT Appointment [facility] CC Radiation 800 [facility]. [id number] [place] [address] Haven Blum, DIRECTOR OF OPERATIONS 800 [facility] [address] [place] [address] 01/19/2025 9:30 AM EDT Appointment P[facility] S Radiology [address], [address]st [place] [address] 01/19/2025 10:45 AM EDT Office Visit [place] [facility] [address], 1st [place] [address] Abhilash Bangura MD [address] [place] [address] 03/08/2025 1:00 PM EDT Office Visit [facility] [place] Wenceslao [address] [place] [address] Teresita Oconnell MD [address] [place] [address] documented as of this encounter [...] documented as of this encounter Care Teams Enterprise Business Architect Relationship Specialty Start Date End Date Laurie Gutierrez MD [address] [place] [address] PCP - General 12/09/23 Joshua Martínez MD [address] [place] [address] Consulting Physician Radiation Oncology 09/19/24 documented as of this encounter
--- OUTSIDE RECORDS SUMMARY | 2024-11-25 15:53 | XMS_ITS | Encounter Summary ---
Author Organization Healthcare Address [address] [place] [address] Care Team Providers Care Shoe Reconditioner Name Role Phone Laurie Gutierrez MD Primary Care Provider [phone] Joshua Martínez MD Unavailable Sabine Morales LPN Unavailable Unavailable Reason for Visit * Reason Comments TCM Call Encounter Details Date Type Department Care Team (Late st Contact Info) Description 11/25/2024 Patient Outreach POP[facility] [address] [facility] [address] [place] [address] Sabine Morales LPN TCM Call [...] drink first t laurie in the morning ([employer]) to steady your nerves or to get [...] Progress Notes - Sabine Morales LPN - 11/25/2024 9:01 AM EDT Admit Date: 11/19/2024 Discharge Date: 11/22/2024 Hospital Service: [facility] Discharge Diagnosis: Atrial fibrillation with rapid ventricular response 11/25/2024 TCM call # 3 Patient Reached: No Outcome: Called patient for TCM nurse call, unable to contact, voicemail left with call back numberprovided. Call attempt made to all emergency contacts listed, no answer for any emergency contact. Action: Follow up call scheduled for 12/02/2024 Medication changes: Per Discharge Summary: Other Medication [...] [facility] [address] [address] 11/29/2024 11:00 AM EDT Office Visit [facility] [address] [phone] Satnam Colvin MD 800 [facility] [address] [place] [address] 11/29/2024 12:30 PM EDT Appointment [facility] [address] [place] [address] 11/30/2024 1:30 PM EDT Appointment [facility] [address] [place] [phone] 12/01/2024 2:00 PM EDT Appointment [facility] [address] [place] [address] 12/06/2024 11:40 AM EDT Appointment [facility] [id number] [place] [phone] Haven Blum, QUESTIONED DOCUMENTS EXAMINER [id number] [place] [address] 01/19/2025 9:30 AM EDT Appointment [facility] Radiology [address] [place] [address] 01/19/2025 10:45 AM EDT Office Visit [place] [facility] [address] [place] [address] Abhilash Bangura MD [address] [place] [address] 03/08/2025 1:00 PM EDT Office Visit [facility] Gurdon Wenceslao 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 Panic 10/26/2024 10/31/2024 Assessment Noted Time PHQ-9 Depression Total Score: 0 09/01/19 25 3:26 PM EDT A fall risk assessment has been complete d for the patient 11/10/2024 2:43 PM EDT A Body Mass Index follow-up plan has been documented for the patient 11/22/2024 4:27 PM EDT documented as of this encounter Care Teams Shoe Reconditioner Relationship Specialty Start Date End Date Laurie Gutierrez MD [address] [place] [address] [place] [address] PCP - General 12/09/23 Joshua Martínez MD [id number] [place] [address] Consulting Physician Radiation Oncology 09/19/24 Sabine Morales LPN TCM Nurse 11/23/24 documented as of this encounter
--- NOTE | 2024-11-25 17:29 | PC.NURSE ---
Pt is sitting on the side of bed eating her dinner. Appetite has been good today. She is currently on RA at this time. VSS. FSBS 177, 201 this shift. Wound Cx obtained and sent to lab. Medication administered per jul. Pt has Ambulated to bathroom with assist x1. Tolerated well. Urine output is 400 ml x1 unmeasured. Call light is within reach. No other concerns at this time.
[2024-11-25 17:30] LABS: POC Glucose,Bedside 201 (70-110)
--- NOTE | 2024-11-25 18:00 | PC.NURSE ---
Pt is resting in bed. Has diuresed well with urine output has been 1750 this shift via [employer]. Pt has had multiple incontinent liquid stools this shift. He has c/o some discomfort to his abdomen. Pt has dependent edema. He has been encouraged and educated to turn off his back. He is currently on RA with O2 sats in the upper 90s. Medicated per jul. Call light within reach. Pt refuses to leave seizure pads in place. CIWA 0.
[2024-11-25 20:15] LABS: POC Glucose,Bedside 131 (70-110)
[2024-11-25] MEDS: ACETAMINOPHEN 325MG TAB 650 MG PO (20:27)
[2024-11-25] MEDS: PANTOPRAZOLE 40MG TABLET 40 MG PO (20:28)
[2024-11-25] MEDS: MONTELUKAST SODIUM 10MG TAB 10 MG PO (20:28)
[2024-11-25] MEDS: ATORVASTATIN 40MG TABLET 40 MG PO (20:28)
[2024-11-25] MEDS: PATIENT'S OWN HOME MEDICATION (Rivaroxaban [Xarelto] 20 mg tablet) 20 EACH PO (20:30)
[2024-11-26] VITALS: BP 127/63; PULSE 78; RESP 20; TEMP 36.8; O2SAT 99
[2024-11-26] MEDS: PIPERACILLIN/TAZO 4.5 GM in 0.9 % SODIUM CHLORIDE 100 ML IV ×3 (00:04→11:43)
--- NOTE | 2024-11-26 02:40 | PC.NURSE ---
Pt AOx4, pleasant. Received zosyn and vanc this shift. 20 RAC, saline locked. Pt ran a fever of 100.8 at the beginning of the shift. Administered tylenol and rechecked later, upon recheck it was 98.9. Pt continually denies pain or any additional needs. Pt is resting in bed with eyes closed. Respirations even and unlabored. Bed is low, locked, and call light is in reach.
[2024-11-26 04:00] VITALS: BP 129/62; PULSE 90; RESP 18; TEMP 36.8; O2SAT 98; BMI 43.9
[2024-11-26 05:28] LABS: POC Glucose,Bedside 169 (70-110)
[2024-11-26] MEDS: SITAGLIPTIN 50MG TABLET 50 MG PO (06:06)
[2024-11-26] MEDS: humaLOG 100 UNITS/ML 10ML VIAL (SSI) SUBCUT ×2 (06:06→12:04)
[2024-11-26 07:44] LABS: Hematocrit 27.2 % (37.0-47.0); Hemoglobin 8.4 g/dL (12.2-16.2); Immature Granulocytes % 1.5 %; Mean Corpuscular HGB Conc 30.9 g/dL (31.8-35.4); Mean Corpuscular Hemoglobin 29.5 pg (27.0-31.2); Mean Corpuscular Volume 95.4 fl (81-99); Nucleated Red Blood Cells % 0.3 %; Platelet Count 87 K/mm3 (142-424); Red Blood Count 2.85 M/mm3 (4.20-5.40); Red Cell Distribution Width-SD 66.5 fL; White Blood Count 9.7 K/mm3 (4.8-10.8)
[2024-11-26 07:59] LABS: Cholesterol 97 mg/dl (140-200); HDL Cholesterol 25 mg/dl (40-60); Triglycerides 92 mg/dl (30-150)
[2024-11-26 08:00] VITALS: BP 112/64; PULSE 83; RESP 18; TEMP 37.2; O2SAT 96
[2024-11-26 08:27] LABS: Alanine Aminotransferase 17 U/L (12-78); Albumin Level 2.9 g/dl (3.5-5.0); Albumin/Globulin Ratio 1.1 (1.1-1.8); Alkaline Phosphatase 101 U/L (38-126); Anion Gap 17.4 mEq/L (5-15); Aspartate Amino Transferase 29 U/L (14-36); Bilirubin,Total 1.1 mg/dl (0.2-1.3); Blood Urea Nitrogen 7 mg/dl (7-17); Calcium 8.0 mg/dl (8.4-10.2); Carbon Dioxide 25 mmol/L (22.0-30.0); Chloride 98 mmol/L (98-107); Creatinine Clearance Estimated 45 mL/min (50-200); Creatinine,Serum 1.20 mg/dl (0.52-1.04); Estimated Glomerular Filt Rate 45 ml/min (>60); GFR (African American) 55 ML/MIN (>60); Globulin 2.7 g/dL (1.3-3.2); Glucose 206 mg/dl (74-100); Potassium 3.4 mmoL/L (3.5-5.1); Sodium 137 mmol/L (136-145); Total Protein,Serum 5.6 g/dl (6.3-8.2)
[2024-11-26 08:34] LABS: C-Reactive Protein 110.5 mg/L (0-4)
[2024-11-26] MEDS: FLUOXETINE 20MG CAPSULE 40 MG PO (09:06)
[2024-11-26] MEDS: FERROUS SULFATE 325MG TABLET 325 MG PO (09:07)
[2024-11-26] MEDS: MAGNESIUM OXIDE 400MG TABLET 400 MG PO (09:07)
[2024-11-26] MEDS: DOCUSATE SODIUM 100 MG CAPSULE PO (09:07)
[2024-11-26] MEDS: EMPAGLIFLOZIN 25MG TABLET 25 MG PO (09:07)
[2024-11-26] MEDS: GABAPENTIN 600MG TABLET 600 MG PO ×2 (09:07→12:52)
[2024-11-26] MEDS: LORATADINE 10MG TABLET 10 MG PO (09:07)
[2024-11-26] MEDS: OFLOXACIN 0.3% OTIC SOLUTION 5ML OT (09:09)
[2024-11-26 10:02] LABS: RBC Morphology Normal; Total Cells Counted 100
[2024-11-26 10:09] LABS: Vancomycin,Trough 21.2 ug/mL (5.0-10.0)
[2024-11-26 10:15] LABS: Hemoglobin A1C 7.9 % (4.0-6.0)
[2024-11-26] MEDS: METOPROLOL TARTRATE 25MG TABLET 25 MG PO (10:15)
[2024-11-26] MEDS: FUROSEMIDE 40 MG TABLET PO (11:44)
[2024-11-26] MEDS: SPIRONOLACTONE 25MG TABLET 25 MG PO (11:44)
[2024-11-26 12:00] VITALS: BP 137/53; PULSE 84; RESP 18; TEMP 37.2; O2SAT 100
[2024-11-26 12:07] LABS: POC Glucose,Bedside 247 (70-110)
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
--- NOTE | 2024-11-28 10:12 | SW/DCPLANNER ---
Spoke with patient on the phone. Patient stated that she is doing good. Patient stated that she is aware of her upcoming appointments and that she hasnt called to schedule her 2 follow ups that was no scheduled. Patient stated that she was able to get her new medicine picked up from [facility]. Patient stated that she has no concerns or questions at this time. Bryan Estrella
== END 2024-11-26 15:09 | disposition home or self-care (01) | DRG 557 ==
LOC: ER 20:55 → 2ND 23:16
PROVIDERS: Nurse Practitioner Family; Admitting Provider Student in an Organized Health Care Education/Training Program; Emergency Provider Student in an Organized Health Care Education/Training Program; Visit Provider Student in an Organized Health Care Education/Training Program
DX: M70.42 Prepatellar bursitis, left knee (principal); J18.9 Pneumonia, unspecified organism; C34.90 Malignant neoplasm of unspecified part of unspecified bronchus or lung; Z68.41 Body mass index [BMI] 40.0-44.9, adult; C79.31 Secondary malignant neoplasm of brain; J44.0 Chronic obstructive pulmonary disease with (acute) lower respiratory infection; D84.9 Immunodeficiency, unspecified; I50.22 Chronic systolic (congestive) heart failure; E66.9 Obesity, unspecified; E87.6 Hypokalemia; E78.5 Hyperlipidemia, unspecified; K21.9 Gastro-esophageal reflux disease without esophagitis; E11.9 Type 2 diabetes mellitus without complications; I11.0 Hypertensive heart disease with heart failure; I48.91 Unspecified atrial fibrillation; F32.A Depression, unspecified; F41.9 Anxiety disorder, unspecified; W18.09XD Striking against other object with subsequent fall, subsequent encounter; S06.5XAD Traumatic subdural hemorrhage with loss of consciousness status unknown, subsequent encounter; Z92.3 Personal history of irradiation; Z92.21 Personal history of antineoplastic chemotherapy; Z79.84 Long term (current) use of oral hypoglycemic drugs; Z79.01 Long term (current) use of anticoagulants; Z79.899 Other long term (current) drug therapy
CPT/HCPCS: 36415; 71046; 73560; 73721; 80048; 80053; 80061; 80202; 81001; 82803; 82962; 83036; 83605; 83880; 84145; 85007; 85025; 85651; 86140; 87040; 87070; 87077; 87086; 87186; 87205; 87636; 93306; 97162; 97166; J1938; J2543; J3370; J7030; J7050; J7120

== ENCOUNTER 2025-01-04 11:24 | Emergency (ER) | payer MEDICAID, SELFPAY ==
--- OUTSIDE RECORDS SUMMARY | 2024-11-04 10:49 | XMS_ITS | Encounter Summary ---
Author Organization Healthcare Address [address] [place] [address] Care Team Providers Care Carton Catcher Name Role Phone Laurie Gutierrez MD Primary Care Provider [phone] Joshua Martínez MD Unavailable Encounter Details Date Type Department Care Team (Latest Contact Info) Description 11/04/2024 10:49 AM EDT - 11/04/2024 11:59 PM EDT Hospital Encounter PAV CC Radiation [address] [id number] [place] [address] Discharge Disposition: Still a Patient 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 [...] drink first t laurie in the morning (EYE-PECAN MALLOW DIPPER) to steady your nerves or to get rid of a hangover? 0 10/27/2024 CAGE Questionnaire Score 0 025 Utilities Answer Date Recorded In the past 12 months has th e [employer], gas, oil, or water company threatened to shut off services in your home? No 10/26/2024 Comments No Sex and Gender Information Value Date Recorded Sex Assigned at Female 12/02/2024 4:52 PM EDT Legal Sex Female 8:32 PM EDT Gender Identity Female 12/02/2024 4:52 PM EDT Sexual Orientation Straight 12/02/2024 4: 52 PM EDT documented as of this encounter Medications at [...] mouth 3 times a day as needed. metFORMIN (Glucophage) 1000 MG tablet Take 1 tablet by mouth 2 times a day with meals. montelukast (Singulair) 10 MG tablet Take 1 tablet by mouth nightly. pantoprazole (Protonix) 40 MG EC tablet Take 1 tablet by mouth daily. Do not crush, chew, or split. pen needle, diabetic 31G X 5 MM misc Use as directed with insulin pen. 100 each 11 10/31/2024 SITagliptin (Januvia) 50 MG tablet Take 1 tablet by mouth every morning. triamterene-hydr ochlorothiazide (Maxzide-25) 37.5-25 MG tablet Take 1 tablet by mouth every morning. Vitamin B-12 ER 1000 MCG tablet controlled-relea se Take 1 tablet by mouth Daily. benzonatate (Tessalon) 100 MG capsule Take 1 capsule by mouth 3 times a day as needed for cough. Do not crush or chew. 20 capsule 10/18/2024 calcium carbonate (Tums) 500 MG chewable tablet Chew 1 tablet 4 times a day as needed for indigestion or heartburn. 5 cholestyramine light (Prevalite) 4 GM/DOSE powder Take 1 packet by mouth 2 times a day with meals. 10/31/2024 5 dexamethasone (Decadron) 2 MG tablet Take 1 tablet by mouth every 12 hours. 10 tablet 10/18/2024 5 empagliflozin (Jardiance) 25 MG Take 1 tablet by mouth daily. estradiol (Estrace) 0.1 MG/GM vaginal cream Insert 2 g into the vagina daily. 5 gabapentin (Neurontin) 600 MG tablet [...] needed for diaper rash. 80 g 10/31/2024 5 magic mouthwash BLM (FIRST-Mouthwash ) suspension Swish and spit 15 mL 4 times a day before meals and nightly for 3 days. 180 mL 10/18/2024 5 magnesium oxide (Mag-Ox) 400 MG tablet Take 1 tablet by mouth 2 times a day. Hold for diarrhea 60 tablet 1 10/04/2024 5 melatonin tablet Take 2 tablets by mouth nightly. 5 metoprolol succinate XL (Toprol-XL) 50 MG [...] or vomiting. 30 tablet 3 10/04/2024 5 rOPINIRole (Requip) 1 MG tablet Take 1 tablet by mouth 2 times a day. 5 tiZANidine (Zanaflex) 2 MG tablet Take 1 tablet by mouth nightly. 5 Xarelto 20 MG tablet Take 1 tablet by mouth every evening. 5 documented as of this encounter Plan of Treatment Upcoming Encounters Date Type Department Care Team (Late st Contact Info) Description 01/05/2025 1:00 PM EDT Office Visit [facility] [address] [place] [address] Lia Barnes, ASSEMBLER RADIO AND ELECTRICAL [address] [facility] [address] [place] [address] 01/10/2025 9:00 AM EDT Clinical Support Pav CC Head, Neck & Respiratory 800 [facility], 2nd [place] [address] 01/10/2025 9:40 AM EDT Office Visit Pav CC Head, Neck & Respiratory 800 [facility], 2nd [place] [address] Satnam Colvin MD 800 [facility] Nuria Degroot [facility] [address] [place] [address] 01/10/2025 12:00 PM EDT Appointment [facility] 1 [address] [place] [address] 01/11/2025 3:30 PM EDT Appointment [facility] 1 [address] [place] [address] 01/12/2025 3:30 PM EDT Appointment [facility] 2 [address] [place] [address] 01/19/2025 9:20 AM EDT Appointment P[facility] S Radiology [address], 1st [place] [address] 01/19/2025 10:45 AM EDT Office Visit [place] [facility] [address], 1st [place] [address] Abhilash Bangura MD [address] [place] [address] 01/26/2025 4:30 PM EDT Office Visit [facility] [address] [place] [address] Lia Barnes, ASSEMBLER RADIO AND ELECTRICAL [address] [facility] [address] [place] [address] 03/08/2025 1:00 PM EDT Office Visit [facility] [place] [facility] 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, IRRIGATOR GRAVITY FLOW 10/26/2024 10/31/2024 Assessment Noted Time PHQ-9 Depression Total Score: 0 09/01/19 3:26 PM EDT A fall risk assessment has been complete d for the patient 10/06/2024 2:29 PM EDT A Body Mass Index follow-up plan has been documented for the patient 10/31/2024 4:09 PM EDT documented as of this encounter Care Teams Carton Catcher Relationship Specialty Start Date End Date Laurie Gutierrez MD [address] [place] [address] PCP - General 12/09/23 Joshua Martínez MD [address] [place] [address] Consulting Physician Radiation Oncology 09/19/24 documented as of this encounter
--- OUTSIDE RECORDS SUMMARY | 2024-11-07 08:45 | XMS_ITS | Encounter Summary ---
Author Organization Healthcare Address [address] [place] [address] Care Team Providers Care Valet Parking Attendant Name Role Phone Laurie Gutierrez MD Primary Care Provider [phone] Joshua Martínez MD Unavailable Encounter Details Date Type Department Care Team (Latest Contact Info) Description 11/07/2024 8:45 AM EDT - 11/07/2024 12:13 PM EDT Hospital Encounter [facility] Radiation [address] [id number] [place] [address] Discharge Disposition: Still a Patient 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 [...] in the past 12 m [facility], were you homeless or living in a group home (including now)? No 10/14/2024 Humiliation, Afraid, [...] by your partner or ex-partner? No 10/26/2024 AUDIT-C Answer Date Recorded Q1: How often do you have a drink containing alcohol? Never 11/08/2024 Q2: How many drinks containi ng alcohol do you have on a typical day when you are drinking? Patient does not drink Q3: How often do you have si x or more drinks on one occasion? Never 11/08/2024 Overall Financial Resource Strain (CARDIA) Answe r [...] in the past 12 m [facility], were you homeless or living in a group home (including now)? No 10/26/2024 CAGE ASSESSMENT [...] drink first t laurie in the morning (EYE-PROCESS DEVELOPMENT CHEMIST) to steady your nerves or to get [...] not crush or chew. 20 capsule 10/18/2024 5 calcium carbonate (Tums) 500 MG chewable tablet [...] Take 1 tablet by mouth daily. 5 estradiol (Estrace) 0.1 MG/GM vaginal cream Insert [...] 3 times a day with meals. 5 magic butt balm (Cholestyramine) CMPD (Magic Butt) [...] Description 01/05/2025 1:00 PM EDT Office Visit [facility] [address] [facility] [place] [address] Lia Barnes, ACCESS ANALYST [address] [facility] [address] [place] [address] 01/10/2025 9:00 AM EDT Clinical Support [facility] Head[facility] Respiratory 800 [facility], 2nd [place] [address] 01/10/2025 9:40 AM EDT Office Visit [facility] Head[facility] Respiratory 800 [facility], 2nd [place] [address] Satnam Colvin MD 800 [facility] [address] [place] [address] 01/10/2025 12:00 PM EDT Appointment [facility] 1 [address] [place] [address] 01/11/2025 3:30 PM EDT Appointment [facility] 1 [address] [place] [address] 01/12/2025 3:30 PM EDT Appointment [facility] 2 [address] [place] [address] 01/19/2025 9:20 AM EDT Appointment [facility] S Radiology [address], 1st [place] [phone] 01/19/2025 10:45 AM EDT Office Visit [facility] [address], 1st [place] [address] Abhilash Bangura MD [address] [facility] [address] [place] [address] 01/26/2025 4:30 PM EDT Office Visit [facility] [address] [facility] [place] [address] Lia Barnes, ACCESS ANALYST [address] [facility] [address] [place] [address] 03/08/2025 1:00 PM EDT Office Visit [facility] [place] [facility] 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, POCKETS AND PIECES NECKTIE OPERATOR 10/26/2024 10/31/2024 Assessment Noted Time PHQ-9 Depression Total Score: 0 09/01/19 3:26 PM EDT A fall risk assessment has been complete d for the patient 10/06/2024 2:29 PM EDT A Body Mass Index follow-up plan has been documented for the patient 10/31/2024 4:09 PM EDT documented as of this encounter Care Teams Valet Parking Attendant Relationship Specialty Start Date End Date Laurie Gutierrez MD [address] [place] [address] PCP - General 12/09/23 Joshua Martínez MD [address] [place] [address] Consulting Physician Radiation Oncology 09/19/24 documented as of this encounter
--- OUTSIDE RECORDS SUMMARY | 2024-11-07 12:14 | XMS_ITS | Encounter Summary ---
Author Organization Healthcare Address [address] [place] [address] Care Team Providers Care Robotic Machine Tender Production Name Role Phone Laurie Gutierrez MD Primary Care Provider [phone] Joshua Martínez MD Unavailable Encounter Details Date Type Department Care Team (Latest Contact Info) Description 11/07/2024 12:14 PM EDT - 11/07/2024 11:59 PM EDT Hospital Encounter [facility] Rad[facility] [id number] [place] [address] Discharge Disposition: Still a Patient 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 [...] drink first t laurie in the morning (EYE-FITNESS ASSISTANT) to steady your nerves or to [...] Description 01/05/2025 1:00 PM EDT Office Visit [facility] [address] [facility] [place] [address] Lia Barnes, DATA REDUCTION TECHNICIAN [address] [facility] [facility] [address] [place] [address] 01/10/2025 9:00 AM EDT Clinical Support [facility] Respiratory [address] [facility], 2nd [place] [address] 01/10/2025 9:40 AM EDT Office Visit [facility] [address] [facility], 2nd [place] [address] Satnam Colvin MD 800 [facility] [address] [place] [address] 01/10/2025 12:00 PM EDT Appointment [facility] 1 [address] [place] [address] 01/11/2025 3:30 PM EDT Appointment [facility] 1 [address] [place] [address] 01/12/2025 3:30 PM EDT Appointment [facility] 2 [address] [place] [address] 01/19/2025 9:20 AM EDT Appointment [facility] S Radiology [address], 1st [place] [address] 01/19/2025 10:45 AM EDT Office [facility] [place] [facility] [address], 1st [place] [address] Abhilash Bangura MD [address] [facility] [address] [place] [address] 01/26/2025 4:30 PM EDT Office Visit [facility] [address] [facility] [place] [address] Lia Barnes, DATA REDUCTION TECHNICIAN [address] [facility] [address] [place] [address] 03/08/2025 1:00 PM EDT Office Visit [facility] [place] [facility] 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, MARIONETTE PERFORMER 10/26/2024 10/31/2024 Assessment Noted Time PHQ-9 Depression Total Score: 0 09/01/19 3:26 PM EDT A fall risk assessment has been complete d for the patient 10/06/2024 2:29 PM EDT A Body Mass Index follow-up plan has been documented for the patient 10/31/2024 4:09 PM EDT documented as of this encounter Care Teams Robotic Machine Tender Production Relationship Specialty Start Date End Date Laurie Gutierrez MD [address] [place] [address] PCP - General 12/09/23 Joshua Martínez MD [address] [place] [address] Consulting Physician Radiation Oncology 09/19/24 documented as of this encounter
--- OUTSIDE RECORDS SUMMARY | 2024-11-08 11:00 | XMS_ITS | Encounter Summary ---
Author Organization Healthcare Address [address] [place] [address] Care Team Providers Care Spray Drier Operator Helper Name Role Phone Laurie Gutierrez MD Primary Care Provider [phone] Joshua Martínez MD Unavailable Reason for Visit * Reason Comments Labs Peripheral stick, ri ght arm Encounter Details Date Type Department Care Team (Latest Contact Info) Description 11/08/2024 11:00 AM EDT Clinical Support Pav [facility] Head[facility] Neck [facility] Respiratory [address] [place] [address] Extensive stage primary small cell carcinoma of [...] drink first t laurie in the morning (EYE-GROUP LEADER SEMICONDUCTOR PROCESSING) to steady your nerves or to get [...] PM EDT documented as of this encounter Functional Status * AUDIT-C Score Answer Date of Assessment Author 0 11/08/2024 11:13 AM EDT Kasandra Riley * Question Answer Date of Assessment Author Q1: How often do you have a drink containing alcohol? Never 11/08/2024 11:13 AM JULIAT Kasandra Riley Q2: How many drinks containing alcohol do you have on a typical day when you are drinking? Patient does not drink 11/08/2024 11:13 AM EDT Kasandra Riley Q3: How often do you have six or more drinks on one occasion? Never 11/08/2024 11:13 AM EDT Kasandra Riley documented as of this encounter Miscellaneous Notes * Clinician Note - Kasandra Riley - 11/08/2024 11:00 AM EDT Peripheral stick, right arm documented in this encounter Plan of Treatment Upcoming Encounters Date Type Department Care Team (Late st Contact Info) Description 01/05/2025 1:00 PM EDT Office Visit [facility] [address] [place] [address] Lia Barnes, UTILITY AIRCREWMAN [address] [facility] [address] [place] [address] 01/10/2025 9:00 AM EDT Clinical Support Pav [facility] Head[facility] Neck [facility] Respiratory [address] [facility] 2nd [place] [address] 01/10/2025 9:40 AM EDT Office Visit Pav [facility] Head[facility]ck [facility] Respiratory [address] [facility] 2nd [place] [address] Satnam Colvin MD [address] [facility] [address] [place] [address] 01/10/2025 12:00 PM EDT Appointment [facility] 1 [address] [place] [address] 01/11/2025 3:30 PM EDT Appointment [facility] 1 [address] [place] [address] 01/12/2025 3:30 PM EDT Appointment [facility] [address] [place] [address] 01/19/2025 9:20 AM EDT Appointment [facility] S Radiology [address] [place] [phone] 01/19/2025 10:45 AM EDT Office Visit [place] [facility] [address] [place] [address] Abhilash Bangura MD [address] [place] [address] 01/26/2025 4:30 PM EDT Office Visit [facility] [address] [place] [address] Lia Barnes, UTILITY AIRCREWMAN [address] [facility] [address] [place] [address] 03/08/2025 1:00 PM EDT Office Visit [facility] [place] [address] [place] [address] Teresita Oconnell MD [address] [place] [address] documented as of this encounter [...] - 2.4 mg/dL 11/08/2024 12:14 PM EDT [facility] Blood Venous blood specimen / Unknown Venipuncture / Unknown 11/08/2024 11:36 AM EDT 11/08/2024 11:45 AM EDT us Satnam Dunne MD LAB BLOOD ORDERABLES Fi nal Result [facility] [address] [place] [address] * (ABNORMAL) Comprehensive metabolic panel (11/08/2024 11:36 AM EDT) Glucose, Plasma 140(H) 74 - 99 mg/dL 11/08/2024 12:14 PM EDT [facility] BUN, Plasma 11 8 - 23 mg/dL 11/08/2024 12:14 PM EDT [facility] Creatinine, Plasma 0.77 0.60 - 1.10 mg/dL 11/08/2024 12:14 PM EDT [facility] BUN/Creatinine Ratio 14 11/08/2024 12:14 PM EDT [facility] Sodium, Plasma 144 136 - 145 mmol/L 11/08/2024 12:14 PM EDT [facility] Potassium, Plasma 4.1 3.6 - 4.9 mmol/L 11/08/2024 12:14 PM EDT [facility] Chloride, Plasma 105 97 - 107 mmol/L 11/08/2024 12:14 PM EDT [facility] CO2, Plasma 23 22 - 29 mmol/L 11/08/2024 12:14 PM EDT [facility] Anion Gap 16 6 - 16 mmol/L 11/08/2024 12:14 PM EDT [facility] Total Calcium, Plasma 9.3 8.9 - 10.2 mg/dL 11/08/2024 12:14 PM EDT [facility] Total Protein 7.1 6.3 - 7.9 g/dL 11/08/2024 12:14 PM EDT [facility] Albumin, Plasma 3.7 3.5 - 5.2 g/dL 11/08/2024 12:14 PM EDT [facility] AST, Plasma 17 10 - 35 U/L 11/08/2024 12:14 PM EDT [facility] ALT, Plasma 26 10 - 35 U/L 11/08/2024 12:14 PM EDT [facility] Alkaline Phosphatase, Plasma 94 46 - 142 U/L 11/08/2024 12:14 PM EDT [facility] Total Bilirubin, Plasma 0.4 0.2 - 1.1 mg/dL 11/08/2024 12:14 PM EDT [facility] eGFRcr 86.8 mL/min/1.7 3m*2 11/08/2024 12:14 PM EDT [facility] Comment:Reported eGFRcr in m L/min/1.73m2 is based the CKD-EPI 2020 equation that does not use a race coefficient. Blood Venous blood specimen / Unknown Venipuncture / Unknown 11/08/2024 11:36 AM EDT 11/08/2024 11:45 AM EDT Satnam Dunne MD LAB BLOOD ORDERABLES Fi nal Result [facility] [address] [place] [address] * (ABNORMAL) CBC and differential (11/08/2024 11:36 AM EDT) WBC Count 10.97(H) 3.70 - 10.30 10*3/uL LAB HEMATOLOGY METHOD 11/08/2024 11:52 AM EDT [facility] RBC Count 2.87(L) 3.90 - 5.20 10*6/uL LAB HEMATOLOGY METHOD 11/08/2024 11:52 AM EDT [facility] HGB 8.9(L) 11.2 - 15.7 g/dL LAB HEMATOLOGY METHOD 11/08/2024 11:52 AM EDT [facility] HCT 30.2(L) 34.0 - 45.0 % LAB HEMATOLOGY METHOD 11/08/2024 11:52 AM EDT [facility] Platelet Count 275 155 - 369 10*3/uL LAB HEMATOLOGY METHOD 11/08/2024 11:52 AM EDT [facility] MCV 105(H) 79 - 98 fL LAB HEMATOLOGY METHOD 11/08/2024 11:52 AM EDT [facility] MCH 31.0 26.0 - 32.0 pg LAB HEMATOLOGY METHOD 11/08/2024 11:52 AM EDT [facility] MCHC 29.5(L) 30.7 - 35.5 g/dL LAB HEMATOLOGY METHOD 11/08/2024 11:52 AM EDT [facility] RDW 19.9(H) 11.5 - 14.5 % LAB HEMATOLOGY METHOD 11/08/2024 11:52 AM EDT [facility] MPV 9.7 8.8 - 12.5 fL LAB HEMATOLOGY METHOD 11/08/2024 11:52 AM EDT [facility] nRBC 1.1(H) <=0.0 per 100 WBCs LAB HEMATOLOGY METHOD 11/08/2024 11:52 AM EDT [facility] Differential Type Automated LAB HEMATOLOGY METHOD 11/08/2024 11:52 AM EDT [facility] Neutrophils % 78 % LAB HEMATOLOGY METHOD 11/08/2024 11:52 AM EDT [facility] Lymphocytes % 13 % LAB HEMATOLOGY METHOD 11/08/2024 11:52 AM EDT [facility] Monocytes % 6 % LAB HEMATOLOGY METHOD 11/08/2024 11:52 AM EDT [facility] Eosinophils % 1 % LAB HEMATOLOGY METHOD 11/08/2024 11:52 AM EDT [facility] Basophils % 1 % LAB HEMATOLOGY METHOD 11/08/2024 11:52 AM EDT [facility] Immature Granulocytes % 1 % LAB HEMATOLOGY METHOD 11/08/2024 11:52 AM EDT [facility] Neutrophils Absolute 8.68(H) 1.60 - 6.10 10*3/uL LAB HEMATOLOGY METHOD 11/08/2024 11:52 AM EDT [facility] Lymphocytes Absolute 1.38 1.20 - 3.90 10*3/uL LAB HEMATOLOGY METHOD 11/08/2024 11:52 AM EDT [facility] Monocytes Absolute 0.68 0.30 - 0.90 10*3/uL LAB HEMATOLOGY METHOD 11/08/2024 11:52 AM EDT [facility] Eosinophils Absolute 0.07 0.00 - 0.50 10*3/uL LAB HEMATOLOGY METHOD 11/08/2024 11:52 AM EDT [facility] Basophils Absolute 0.06 0.00 - 0.10 10*3/uL LAB HEMATOLOGY METHOD 11/08/2024 11:52 AM EDT [facility] Immature Granulocytes Absolute 0.10(H) 0.00 - 0.06 10*3/uL LAB HEMATOLOGY METHOD 11/08/2024 11:52 AM EDT [facility] Blood Venous blood specimen / Unknown Venipuncture / Unknown 11/08/2024 11:36 AM EDT 11/08/2024 11:45 AM EDT Narrative [facility] - 11/08/2024 11:52 AM EDT Therapeutic decision making should be based on absolute values, rather than percentages. 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 10/26/2024 10/31/2024 Assessment Noted Time PHQ-9 Depression Total Score: 0 09/01/19 25 3:26 PM EDT A fall risk assessment has been complete d for the patient 11/08/2024 2:02 PM EDT A Body Mass Index follow-up plan has been documented for the patient 11/08/2024 5:14 PM EDT documented as of this encounter Care Teams Spray Drier Operator Helper Relationship Specialty Start Date End Date Laurie Gutierrez MD [address] [place] [id number] PCP - General 12/09/23 Joshua Martínez MD [address] [address] Consulting Physician Radiation Oncology 09/19/24 documented as of this encounter
--- OUTSIDE RECORDS SUMMARY | 2024-11-08 11:20 | XMS_ITS | Encounter Summary ---
Author Organization Healthcare Address [address] [place] [address] Care Team Providers Care Lumber Stacker Name Role Phone Laurie Gutierrez MD Primary Care Provider [phone] Joshua Martínez MD Unavailable Reason for Visit * Reason Comments Follow-up Encounter Details Date Type Department Care Team ([facility] Contact Info) Description 11/08/2024 11:20 AM EDT Office Visit [facility] Head[facility] Neck & Respiratory [address]nd [place] [address] Satnam Colvin MD [address] [facility] [address] [place] [address] Extensive stage primary small cell carcinoma of [...] drink first t laurie in the morning (EYE-TECHNICIAN INVENTORY SPECIALIST) to steady your nerves or to get rid of a hangover? 0 10/27/2024 CAGE Questionnaire Score 0 025 Utilities Answer Date Recorded In the past 12 months has th e [employer], gas, oil, or water company threatened to shut off services in your home? No 10/26/2024 Comments No Sex and Gender Information Value Date Recorded Sex Assigned at Female 12/02/2024 4:52 PM EDT Legal Sex Female 8:32 PM EDT Gender Identity Female 12/02/2024 4:52 PM EDT Sexual Orientation Straight 12/02/2024 4: 52 PM EDT documented as of this encounter Last Filed [...] time. Pharmacist Attestation: Rupa De Santiago PharmD, [facility] Clinical Oncology Pharmacist * Progress Notes - [...] 10/04-10/06/24 Oncology History: - initially diagnosed with [id number], stage IIIA limited stage of the right [...] images, labs, coordinating care and, 20 minutes kmno-qg-dklb encounter. MD GIGI Man PAV CC HEAD, NECK & RESPIRATORY [address] [facility] [address] [facility]. [1] Past Medical History: Diagnosis [...] SURGERY TUBAL LIGATION N/A Tubal Ligation from [employer] TYMPANOSTOMY TUBE PLACEMENT N/A Ear Surgery Eustachian Tube from [employer] [3] Family History Problem Relation Name Age [...] or chew., Disp: 20 capsule, Rfl: 0 Fdrfidc-Zpzvhqfuvsd-Bzdixromik (Breztri Aerosphere) 160-9-4.8 MCG/ACT aerosol, Inhale 2 [...] Disp: 22 g, Rfl: 0 nystatin (Mycostatin) 922236 UNIT/GM powder, Apply on bottom 2 times [...] Upcoming Encounters Date Type Department Care Team ([facility] st Contact Info) Description 01/05/2025 1:00 PM EDT Office Visit [facility] [address] [place] [address] Lia Barnes, FIELD ARTILLERY OPERATIONS MAN [address] [facility] [address] [place] [address] 01/10/2025 9:00 AM EDT Clinical Support Pav [facility] Head, Neck & Respiratory 800 [facility], 2nd [place] [address] 01/10/2025 9:40 AM EDT Office Visit Pav [facility] Head, Neck & Respiratory [address] [facility], 2nd [place] [address] Satnam Colvin MD [address] [place] [address] 01/10/2025 12:00 PM EDT Appointment [facility] Infusion Clinic 1 [address] [place] [address] 01/11/2025 3:30 PM EDT Appointment [facility] Infusion Clinic 1 [address] [place] [address] 01/12/2025 3:30 PM EDT Appointment [facility] Infusion Clinic 2 [address] [place] [address] 01/19/2025 9:20 AM EDT Appointment [facility] S Radiology [address], 1st [place] [address] 01/19/2025 10:45 AM EDT [facility] Visit [facility] [address], [address] [place] [address] Abhilash Bangura MD [address] [place] [address] 01/26/2025 4:30 PM EDT Office Visit [facility] [address] [facility] [place] [address] Lia Barnes, FIELD ARTILLERY OPERATIONS MAN [address] [facility] [address] [place] [address] 03/08/2025 1:00 PM EDT Office Visit [facility] [place] [facility] [address] [place] [address] Teresita Oconnell MD [address] [place] [address] documented as of this encounter Results * TSH reflex FT4 (11/29/2024 12:19 PM EDT) [facility] Thyroid Stimulating Hormone, Plasma 1.32 0.40 - 4.20 uIU/mL 11/29/2024 1:46 PM EDT [facility] Blood Venous blood specimen / Unknown Venipuncture / Unknown 11/29/2024 12:19 PM EDT 11/29/2024 12:36 PM EDT Satnam Dunne MD LAB BLOOD ORDERABLES Fi nal Result Performing Organization Address City/[facility]/ZIP Co de Phone Number [facility] [address] [place] [address] * (ABNORMAL) Magnesium (11/29/2024 12:19 PM EDT) [facility] Magnesium, Plasma 0.8(LL) 1.9 - 2.4 mg/dL 11/29/2024 1:46 PM EDT [facility] Blood Venous blood specimen / Unknown Venipuncture / Unknown 11/29/2024 12:19 PM EDT 11/29/2024 12:36 PM EDT Satnam Dunne MD LAB BLOOD ORDERABLES Fi nal Result Performing Organization Address [facility] Co de Phone Number [facility] [address] [place] [address] * (ABNORMAL) Comprehensive metabolic panel (11/29/2024 12:19 PM EDT) [facility] Glucose, Plasma 287(H) 74 - 99 mg/dL 11/29/2024 1:46 PM EDT [facility] BUN, Plasma 17 8 - 23 mg/dL 11/29/2024 1:46 PM EDT [facility] Creatinine, Plasma 2.81(H) 0.60 - 1.10 mg/dL 11/29/2024 1:46 PM EDT [facility] BUN/Creatinine Ratio 6 11/29/2024 1:46 PM EDT [facility] Sodium, Plasma 139 136 - 145 mmol/L 11/29/2024 1:46 PM EDT [facility] Potassium, Plasma 4.6 3.6 - 4.9 mmol/L 11/29/2024 1:46 PM EDT [facility] Comment:Hemolyzed, result ma y be falsely increased. Chloride, Plasma 102 97 - 107 mmol/L 11/29/2024 1:46 PM EDT [facility] CO2, Plasma 22 22 - 29 mmol/L 11/29/2024 1:46 PM EDT [facility] Anion Gap 15 6 - 16 mmol/L 11/29/2024 1:46 PM EDT [facility] Total Calcium, Plasma 7.7(L) 8.9 - 10.2 mg/dL 11/29/2024 1:46 PM EDT [facility] Total Protein 6.3 6.3 - 7.9 g/dL 11/29/2024 1:46 PM EDT [facility] Albumin, Plasma 3.0(L) 3.5 - 5.2 g/dL 11/29/2024 1:46 PM EDT [facility] AST, Plasma 33 10 - 35 U/L 11/29/2024 1:46 PM EDT [facility] Comment:Hemolyzed, result ma y be falsely increased. ALT, Plasma 17 10 - 35 U/L 11/29/2024 1:46 PM EDT [facility] Alkaline Phosphatase, Plasma 122 46 - 142 U/L 11/29/2024 1:46 PM EDT [facility] Total Bilirubin, Plasma 0.5 0.2 - 1.1 mg/dL 11/29/2024 1:46 PM EDT [facility] eGFRcr 18.2 mL/min/1.7 3m*2 11/29/2024 1:46 PM EDT [facility] Comment:Reported eGFRcr in m L/min/1.73m2 is based the CKD-EPI 2020 equation that does not use a race coefficient. Blood Venous blood specimen / Unknown Venipuncture / Unknown 11/29/2024 12:19 PM EDT 11/29/2024 12:36 PM EDT Satnam Dunne MD LAB BLOOD ORDERABLES Fi nal Result [facility] [address] [place] [address] * (ABNORMAL) CBC and differential (11/29/2024 12:19 PM EDT) WBC Count 9.83 3.70 - 10.30 10*3/uL LAB HEMATOLOGY METHOD 11/29/2024 1:00 PM EDT [facility] RBC Count 2.67(L) 3.90 - 5.20 10*6/uL LAB HEMATOLOGY METHOD 11/29/2024 1:00 PM EDT [facility] HGB 7.7(L) 11.2 - 15.7 g/dL LAB HEMATOLOGY METHOD 11/29/2024 1:00 PM EDT [facility] HCT 25.9(L) 34.0 - 45.0 % LAB HEMATOLOGY METHOD 11/29/2024 1:00 PM EDT [facility] Platelet Count 166 155 - 369 10*3/uL LAB HEMATOLOGY METHOD 11/29/2024 1:00 PM EDT [facility] MCV 97 79 - 98 fL LAB HEMATOLOGY METHOD 11/29/2024 1:00 PM EDT [facility] MCH 28.8 26.0 - 32.0 pg LAB HEMATOLOGY METHOD 11/29/2024 1:00 PM EDT [facility] MCHC 29.7(L) 30.7 - 35.5 g/dL LAB HEMATOLOGY METHOD 11/29/2024 1:00 PM EDT [facility] RDW 19.9(H) 11.5 - 14.5 % LAB HEMATOLOGY METHOD 11/29/2024 1:00 PM EDT [facility] MPV 9.9 8.8 - 12.5 fL LAB HEMATOLOGY METHOD 11/29/2024 1:00 PM EDT [facility] nRBC 0.0 <=0.0 per 100 WBCs LAB HEMATOLOGY METHOD 11/29/2024 1:00 PM EDT [facility] Differential Type Automated LAB HEMATOLOGY METHOD 11/29/2024 1:00 PM EDT [facility] Neutrophils % 83 % LAB HEMATOLOGY METHOD 11/29/2024 1:00 PM EDT [facility] Lymphocytes % 8 % LAB HEMATOLOGY METHOD 11/29/2024 1:00 PM EDT [facility] Monocytes % 6 % LAB HEMATOLOGY METHOD 11/29/2024 1:00 PM EDT [facility] Eosinophils % 2 % LAB HEMATOLOGY METHOD 11/29/2024 1:00 PM EDT [facility] Basophils % 0 % LAB HEMATOLOGY METHOD 11/29/2024 1:00 PM EDT [facility] Immature Granulocytes % 1 % LAB HEMATOLOGY METHOD 11/29/2024 1:00 PM EDT [facility] Neutrophils Absolute 8.18(H) 1.60 - 6.10 10*3/uL LAB HEMATOLOGY METHOD 11/29/2024 1:00 PM EDT [facility] Lymphocytes Absolute 0.75(L) 1.20 - 3.90 10*3/uL LAB HEMATOLOGY METHOD 11/29/2024 1:00 PM EDT [facility] Monocytes Absolute 0.55 0.30 - 0.90 10*3/uL LAB HEMATOLOGY METHOD 11/29/2024 1:00 PM EDT [facility] Eosinophils Absolute 0.20 0.00 - 0.50 10*3/uL LAB HEMATOLOGY METHOD 11/29/2024 1:00 PM EDT [facility] Basophils Absolute 0.04 0.00 - 0.10 10*3/uL LAB HEMATOLOGY METHOD 11/29/2024 1:00 PM EDT [facility] Immature Granulocytes Absolute 0.11(H) 0.00 - 0.06 10*3/uL LAB HEMATOLOGY METHOD 11/29/2024 1:00 PM EDT [facility] Blood Venous blood specimen / Unknown Venipuncture / Unknown 11/29/2024 12:19 PM EDT 11/29/2024 12:50 PM EDT Narrative [facility] - 11/29/2024 1:00 PM EDT Therapeutic decision making should be based on absolute values, rather than percentages. 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, MONTESSORI PROGRAM DIRECTOR 10/26/2024 10/31/2024 Assessment Noted Time PHQ-9 Depression Total Score: 0 09/01/19 25 3:26 PM EDT A fall risk assessment has been complete d for the patient 11/08/2024 2:02 PM EDT A Body Mass Index follow-up plan has been documented for the patient 11/08/2024 5:14 PM EDT documented as of this encounter Care Teams Lumber Stacker Relationship Specialty Start Date End Date Laurie Gutierrez MD [address] [place] [address] PCP - General 12/09/23 Joshua Martínez MD [address] [place] [phone] Consulting Physician Radiation Oncology 09/19/24 documented as of this encounter
--- OUTSIDE RECORDS SUMMARY | 2024-11-08 14:00 | XMS_ITS | Encounter Summary ---
Author Organization Healthcare Address [address] [place] [address] Care Team Providers Care Photovoltaic Fabrication Technician Name Role Phone Laurie Gutierrez MD Primary Care Provider [phone] Joshua Martínez MD Unavailable Reason for Visit * Episode Based Medications (Routine) - Authorized Specialty Diagnoses / Procedures Referred By Contnida t Referred To Contact Diagnoses Extensive stage primary small cell carcinoma of lung Procedures CARBOplatin / Etoposide Daily x 3 / Atezolizumab Every 21 Days Satnam Colvin MD [address] [facility] [address] [address] Phone: tel: fax: Satnam Colvin MD 800 [facility] [address] [address] [address] Phone: tel: fax: Referral ID Status Reason Start Date Expiration Date V isits Requested Visits Authorized [id number] Authorized 10/04/2024 04/05/2026 24 Encounter Details Date Type Department Care Team (Latest Contact Info) Description 11/08/2024 2:00 PM EDT - 11/08/2024 11:59 PM EDT Hospital En[facility] [address] [place] [address] Extensive stage primary small cell carcinoma of [...] drink first t laurie in the morning (EYE-GLASS VIAL BENDING CONVEYOR FEEDER) to steady your nerves or to get rid of a hangover? 0 10/27/2024 CAGE Questionnaire Score 0 025 Utilities Answer Date Recorded In the past 12 months has th e [employer], oil, or water company threatened to shut off services in your home? No 10/26/2024 Comments No Sex and Gender Information Value Date Recorded Sex Assigned at Female 12/02/2024 4:52 PM EDT Legal Sex Female 8:32 PM EDT Gender Identity Female 12/02/2024 4:52 PM EDT Sexual Orientation Straight 12/02/2024 4 :52 PM EDT documented as of this encounter [...] Take 1 tablet by mouth nightly. nystatin (Mycostatin) 303777 UNIT/GM powder Apply on bottom 2 times a day 30 g 11/08/2024 pantoprazole (Protonix) 40 MG EC tablet [...] nausea or vomiting. 30 tablet 3 11/08/2024 SITagliptin (Januvia) 50 MG tablet Take 1 [...] 2 g into the vagina daily. 5 insulin glargine (Lantus) 100 UNIT/ML injection vial Inject 25 Units under the skin nightly. 10 mL 3 10/31/2024 5 insulin lispro (Admelog, HumaLOG) 100 UNIT/ML injection pen Inject 15 Units under the skin 3 times a day with meals. 5 lidocaine (Xylocaine) 5 % ointment Apply 2 times a day. 30 g 11/08/2024 5 magic butt balm (Cholestyramine) CMPD (Magic [...] crush or chew. 90 tablet 11/01/2024 5 mupirocin (Bactroban) 2 % ointment Apply on head 2 times a day 22 g 11/08/2024 5 NovoLOG FLEXPEN 100 UNIT/ML injection pen [...] then take PRN 30 tablet 5 11/08/2024 5 Probiotic, Lactobacillus, capsule Take 1 capsule by mouth daily. 30 capsule 1 11/08/2024 5 rOPINIRole (Requip) 1 MG tablet Take [...] Description 01/05/2025 1:00 PM EDT Office Visit [facility] [address] [place] [address] Lia Barnes, OCCUPANCY SPECIALIST [address] [facility] [address] [place] [address] 01/10/2025 9:00 AM EDT Clinical Support [facility] [address] [facility], 2nd [place] [address] 01/10/2025 9:40 AM EDT Office Visit [facility] [address] [facility], 2nd [place] [address] Satnam Colvin MD [address] [facility] N[place] [facility] [address] [place] [address] 01/10/2025 12:00 PM EDT Appointment [facility] 1 [address] [place] [address] 01/11/2025 3:30 PM EDT Appointment [facility] 1 [address] [place] [address] 01/12/2025 3:30 PM EDT [facility]ointment [facility] 2 [address] [place] [address] 01/19/2025 9:20 AM EDT Appointment [facility] Radiology [address], 1st [place] [address] 01/19/2025 10:45 AM EDT Office Visit [facility] [address], 1st [place] [address] Abhilash Bangura MD [address] [place] [address] 01/26/2025 4:30 PM EDT Office Visit [facility] [address] [facility] [place] [address] Lia Barnes, OCCUPANCY SPECIALIST [address] [facility] [address] [place] [address] 03/08/2025 1:00 PM EDT Office Visit [facility] [place] [facility] [address] [place] [address] Teresita Oconnell MD [address] [place] [address] documented as of this encounter [...] cell carcinoma of lung New Bag 11/08/2024 3:13 PM EDT 130 mg Atezolizumab-Hyaluronida se-tqjs (Tecentriq Hybreza) 1875-91401 MG-UT/15ML injection solution 1,875 mg 1,875 mg, Subcutaneous, Once, 1 dose, On Thu11/08/24 at 1500, RoutineIndications:Exten sive stage primary small cell carcinoma of lung [facility] 11/08/2024 3:17 PM EDT 1,875 mg Left Outer Thigh CARBOplatin (Paraplatin) 620 mg in sodium chloride 0.9 % 250 mL IVPB 620 mg (rounded from 622 mg, Target AUC = 5), Intravenous, at 714 mL/hr, Administer over 30 Minutes, Once, Hazardous Drug-Tier 1 Precautions. Dispose in BLACK Hazardous Waste Container. Chemotherapy: refer to A145., On Thu11/08/24 at 1515, For 1 dose, Pharmacist to calculate carboplatin dose based on today's Scr. If dose changes by > 5%, verify new dose with physician.Indications:Ex tensive stage primary small cell carcinoma of lung [facility] 11/08/2024 3:34 PM EDT 620 mg [...] Use 0.2 micron filter. Chemotherapy: refer to A145., On Thu11/08/24 at 1545, For 1 dose, NS 500 mL; Precipitation may occur with concentrations >0.4 mg/mL. 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, SACK CLEANING HAND 10/26/2024 10/31/2024 Assessment Noted Time PHQ-9 Depression Total Score: 0 09/01/19 3:26 PM EDT A fall risk assessment has been complete d for the patient 11/08/2024 2:02 PM EDT A Body Mass Index follow-up plan has been documented for the patient 11/08/2024 5:14 PM EDT documented as of this encounter Care Teams Photovoltaic Fabrication Technician Relationship Specialty Start Date End Date Laurie Gutierrez MD [address] [place] [address] PCP - General 12/09/23 Joshua Martínez MD [address] [place], [place] [address]D [place] [address] Consulting Physician Radiation Oncology 09/19/24 documented as of this encounter
--- OUTSIDE RECORDS SUMMARY | 2024-11-09 14:49 | XMS_ITS | Encounter Summary ---
Author Organization Healthcare Address [address] [place] [address] Care Team Providers Care Parimutuel Ticket Checker Name Role Phone Laurie Gutierrez MD Primary Care Provider [phone] Joshua Martínez MD Unavailable Reason for Visit * Episode Based Medications (Routine) - Authorized Specialty Diagnoses / Procedures Referred By Contnida t Referred To Contact Diagnoses Extensive stage primary small cell carcinoma of lung Procedures CARBOplatin / Etoposide Daily x 3 / Atezolizumab Every 21 Days Satnam Colvin MD 800 [facility] [address] [address] Phone: tel: fax: Satnam Colvin MD 800 [facility] [address] Deg[place] [address] [address] Phone: tel: fax: Referral ID Status Reason Start Date Expiration Date V isits Requested Visits Authorized [id number] Authorized 10/04/2024 04/05/2026 1 24 Encounter Details Date Type Department Care Team (Latest Contact Info) Description 11/09/2024 2:49 PM EDT - 11/09/2024 11:59 PM EDT Hospital Encounter [facility] 2 [address] [place] [address] Extensive stage primary small cell carcinoma of [...] any time in the past 12 [facility], were you homeless or living in a fdc (including now)? No 10/14/2024 Humiliation, Afraid, Rape, [...] any time in the past 12 [facility], were you homeless or living in a fdc (including now)? No 10/26/2024 CAGE ASSESSMENT Answer [...] drink first t laurie in the morning (EYE-SOLAR BUSINESS DEVELOPER) to steady your nerves or to get rid of a hangover? 0 10/27/2024 CAGE Questionnaire Score 0 025 Utilities Answer Date Recorded In the past 12 months has th e [employer], oil, or water [employer] threatened to shut off services in your [...] 1 tablet by mouth nightly. nystatin (Mycostatin) 668045 UNIT/GM powder Apply on bottom 2 times [...] Description 01/05/2025 1:00 PM EDT Office Visit [facility] [address] [facility] [place] [address] Lia Barnes, INSPECTOR WEIGHTS AND MEASURES [address] [facility] [address] [place] [address] 01/10/2025 9:00 AM EDT Clinical Support [facility] Respiratory 800 [facility], 2nd [place] [address] 01/10/2025 9:40 AM EDT Office Visit [facility] Res[facility] 800 [facility], [address]nd [place] [address] Satnam Colvin MD 800 [facility] [address] [place] [address] 01/10/2025 12:00 PM EDT Appointment [facility] 1 [address] [place] [address] 01/11/2025 3:30 PM EDT Appointment [facility] 1 [address] [place] [address] 01/12/2025 3:30 PM EDT Appointment [facility] 2 [address] [place] [address] 01/19/2025 9:20 AM EDT Appointment [facility] Radiology [address], 1st [place] [address] 01/19/2025 10:45 AM EDT Office Visit [place] [facility] [address], [address]st [place] [address] Abhilash Bangura MD [address] [place] [address] 01/26/2025 4:30 PM EDT Office Visit [facility] [address] [facility] [place] [address] Lia Barnes, INSPECTOR WEIGHTS AND MEASURES [address] [facility] [address] [place] [address] 03/08/2025 1:00 PM EDT Office Visit [facility] [place] [facility] 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 WORKER 10/26/2024 10/31/2024 Assessment Noted Time PHQ-9 Depression Total Score: 0 09/01/19 3:26 PM EDT A fall risk assessment has been complete d for the patient 11/09/2024 2:52 PM EDT A Body Mass Index follow-up plan has been documented for the patient 11/08/2024 5:14 PM EDT documented as of this encounter Care Teams Parimutuel Ticket Checker Relationship Specialty Start Date End Date Laurie Gutierrez MD [address] [place] [address] PCP - General 12/09/23 Joshua Martínez MD [address] [place] [address] Consulting Physician Radiation Oncology 09/19/24 documented as of this encounter
--- OUTSIDE RECORDS SUMMARY | 2024-11-10 14:39 | XMS_ITS | Encounter Summary ---
Author Organization Healthcare Address [address] [place] [address] Care Team Providers Care Bath Solution Maker Name Role Phone Laurie Gutierrez MD Primary Care Provider [phone] Joshua Martínez MD Unavailable Reason for Visit * Episode Based Medications (Routine) - Authorized Specialty Diagnoses / Procedures Referred By Contnida t Referred To Contact Diagnoses Extensive stage primary small cell carcinoma of lung Procedures CARBOplatin / Etoposide Daily x 3 / Atezolizumab Every 21 Days Satnam Colvin MD 800 [facility] Nuria Degroot [address] [address] Phone: tel: fax: Satnam Colvin MD 800 [facility] Nuria Degroot [address] [address] Phone: tel: fax: Referral ID Status Reason Start Date Expiration Date V isits Requested Visits Authorized [id number] Authorized 10/04/2024 04/05/2026 1 24 Encounter Details Date Type Department Care Team (Latest Contact Info) Description 11/10/2024 2:39 PM EDT - 11/10/2024 11:59 PM EDT Hospital Encounter [facility] 1 [address] [place] [address] Extensive stage primary small cell carcinoma of [...] drink first t laurie in the morning (EYE-SURGICAL ASSISTANT CERTIFIED) to steady your nerves or to get rid of a hangover? 0 10/27/2024 CAGE Questionnaire Score 0 025 Utilities Answer Date Recorded In the past 12 months has th e [employer], gas, oil, or water company threatened to [...] 1 tablet by mouth nightly. nystatin (Mycostatin) 656221 UNIT/GM powder Apply on bottom 2 times [...] Description 01/05/2025 1:00 PM EDT Office Visit [facility] [address] [facility] [place] [address] Lia Barnes, PROGRAM SUPPORT SPECIALIST [address] [facility] [address] [place] [address] 01/10/2025 9:00 AM EDT Clinical Support [facility] 800 [facility], 2nd [place] [address] 01/10/2025 9:40 AM EDT Office Visit [facility] 800 [facility], 2nd [place] [address] Satnam Colvin MD 800 [facility] [address] [place] [address] 01/10/2025 12:00 PM EDT Appointment [facility] 1 [address] [place] [address] 01/11/2025 3:30 PM EDT Appointment [facility] 1 [address] [place] [address] 01/12/2025 3:30 PM EDT Appointment [facility] 2 [address] [place] [address] 01/19/2025 9:20 AM EDT Appointment [facility] S Radiology [address], 1st [place] [address] 01/19/2025 10:45 AM EDT Office Visit [place] [facility] [address], 1st [place] [address] Abhilash Bangura MD [address] [place] [address] 01/26/2025 4:30 PM EDT Office Visit [facility] [address] [facility] [place] [address] Lia Barnes, PROGRAM SUPPORT SPECIALIST [address] [facility] [address] [place] [address] 03/08/2025 1:00 PM EDT Office Visit [facility] [place] [facility] 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 ENGINEER 10/26/2024 10/31/2024 Assessment Noted Time PHQ-9 Depression Total Score: 0 09/01/19 3:26 PM EDT A fall risk assessment has been complete d for the patient 11/10/2024 2:43 PM EDT A Body Mass Index follow-up plan has been documented for the patient 11/08/2024 5:14 PM EDT documented as of this encounter Care Teams Bath Solution Maker Relationship Specialty Start Date End Date Laurie Gutierrez MD [address] [place] [address] PCP - General 12/09/23 Joshua Martínez MD [address] [place] [address] Consulting Physician Radiation Oncology 09/19/24 documented as of this encounter
--- OUTSIDE RECORDS SUMMARY | 2024-11-14 08:45 | XMS_ITS | Encounter Summary ---
Author Organization Healthcare Address [address] [place] [address] Care Team Providers Care Wall Taper Helper Name Role Phone Laurie Gutierrez MD Primary Care Provider [phone] Joshua Martínez MD Unavailable Encounter Details Date Type Department Care Team (Latest Contact Info) Description 11/14/2024 8:45 AM EDT - 11/14/2024 11:59 PM EDT Hospital Encounter [facility] [id number] [place] [address] Discharge Disposition: Still a Patient 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 [...] drink first t laurie in the morning (EYE-PAYROLL TECHNICIAN) to steady your nerves or to [...] 1 tablet by mouth nightly. nystatin (Mycostatin) [id number] UNIT/GM powder Apply on bottom 2 times [...] Description 01/05/2025 1:00 PM EDT Office Visit [facility] [address] [place] [address] Lia Barnes, C WEB DEVELOPER [address] [facility] [address] [place] [address] 01/10/2025 9:00 AM EDT Clinical Support [facility] Respiratory [address] [facility] [address] [place] [address] 01/10/2025 9:40 AM EDT Office Visit [facility] Head[facility] Neck [facility] Respiratory [address] [facility], [address] [place] [address] Satnam Colvin MD [address] [facility] [address] [facility] [address] [place] [address] 01/10/2025 12:00 PM EDT Appointment [facility] 1 [address] [place] [address] 01/11/2025 3:30 PM EDT Appointment [facility] 1 [address] [place] [address] 01/12/2025 3:30 PM EDT Appointment [facility] 2 [address] [place] [address] 01/19/2025 9:20 AM EDT Appointment [facility] S Radiology [address] 1st [place] [address] 01/19/2025 10:45 AM EDT [facility] Visit [facility] [address], [address] [place] [address] Abhilash Bangura MD [address] [place] [address] 01/26/2025 4:30 PM EDT Office Visit [facility] [address] [facility] [place] [address] Lia Barnes, C WEB DEVELOPER [address] [facility] [address] [place] [address] 03/08/2025 1:00 PM EDT Office Visit [facility] 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, MATERIAL MOVER 10/26/2024 10/31/2024 Assessment Noted Time PHQ-9 Depression Total Score: 0 09/01/19 25 3:26 PM EDT A fall risk assessment has been complete d for the patient 11/10/2024 2:43 PM EDT A Body Mass Index follow-up plan has been documented for the patient 11/08/2024 5:14 PM EDT documented as of this encounter Care Teams Wall Taper Helper Relationship Specialty Start Date End Date Laurie Gutierrez MD [address] [place] [address] PCP - General 12/09/23 Joshua Martínez MD [address] [place] [address] Consulting Physician Radiation Oncology 09/19/24 documented as of this encounter
--- OUTSIDE RECORDS SUMMARY | 2024-11-15 16:42 | XMS_ITS | Encounter Summary ---
Author Organization Healthcare Address [address] [place] [address] Care Team Providers Care Frame Wirer Name Role Phone Laurie Gutierrez MD Primary Care Provider [phone] Joshua Martínez MD Unavailable Reason for Visit * Reason Comments Trauma Alert Red * Auth/Cert (Routine) Specialty Diagnoses / Procedures Referred By Mackenzie carreon Referred To Contact Diagnoses Atrial fibrillation with rapid ventricular response (CMS/HCC) afib rvr; hx head bleed from fall. Regina Ivey MD [address] [place] [address] Phone: tel: fax: [facility] [address] [place] [address] Phone: tel: Referral ID Status Reason Start Date Expiration Date Visits Re quested Visits Authorized [id number] 1 1 Encounter Details Date Type Department Care Team (Latest Contact Info) Description 11/15/2024 4:42 PM EDT - 11/16/2024 3:39 PM EDT Hospital Encounter [facility] [address] [place] [address] Lona Ortiz MD [address] [place] [address] Giovany Vance MD [address] [facility] [address] [place] [address] Jojo Rapp MD [address] [place] [address] SAH (subarachnoid hemorrhage) (CMS/HCC) (Primary Dx); SDH (subdural hematoma) (CMS/HCC); Nondisplaced fracture of distal phalanx of left thumb, initial encounter for closed fracture; Acute cystitis without hematuria Discharge Disposition: Home or Self Care Social [...] drink first t laurie in the morning ([employer]) to steady your nerves or to get rid of a hangover? 0 10/27/2024 CAGE Questionnaire Score 0 025 Utilities Answer Date Recorded In the past 12 months has th e Fleec[employer], gas, oil, or water [employer] threatened to shut off services in [...] Sign Reading Time Taken Comments Blood Pressure 126/83 11/16/2024 2:18 PM EDT Pulse 89 11/16/2024 2:18 PM EDT Temperature 37.1 C (98.7 F) 11/16/2024 2:18 PM EDT Respiratory Rate 18 11/16/2024 2:18 PM EDT Oxygen Saturation 95% 11/16/2024 2:18 PM EDT Inhaled Oxygen Concentration - - Weight 120 kg (263 lb 7.2 oz) 11/15/2024 5:07 PM EDT Height - - Body Mass Index 41.26 11/10/2024 2:43 PM EDT documented in this encounter Functional Status * Calculated C-SSRS Risk Score (Lifetime/Recent) Answer Date of Assessment Author No Risk Indicated 11/16/2024 7:30 AM EDT Marcia Pelletier * Question Answer Date of Assessment Author 1. Wish to be (Past 1 Month) No 025 7:30 AM EDT Marcia Pelletier 2. Non-Specific Active Suici radha Thoughts (Past 1 Month) No 11/16/2024 7:30 AM EDT Neida Pelletier 6. Suicidal Behavior (Lifetime) No 7:30 AM EDT Marcia Pelletier documented as of this encounter Medications at Time of Discharge acetaminophen (Tylenol) 325 MG tablet Take 2 tablets by mouth every 6 hours. Under [place] law, monthly prescriptions (30 days) can be refilled at 25 days and three-month prescriptions (90 days) at 80 days. Please contact the insurance company with questions if refills are denied. 100 tablet 11/16/2024 atorvastatin (Lipitor) 40 MG tablet Take 1 [...] 1 tablet by mouth nightly. nystatin (Mycostatin) 662944 UNIT/GM powder Apply on bottom 2 times [...] times a day 22 g 11/08/2024 5 nitrofurantoin, macrocrystal-mon ohydrate, (Macrobid) 100 MG capsuleIndicatio ns:Acute cystitis without hematuria Take 1 capsule by mouth 2 times a day for 9 doses. 9 capsule 11/16/2024 5 NovoLOG FLEXPEN 100 UNIT/ML injection pen [...] by mouth 2 times a day. 5 documented as of this encounter Miscellaneous Notes * Discharge Summary - Torrie Mustafa PA - 11/16/2024 3:39 PM EDT Hospitalization Admit Date/Time: 11/15/2024 4:42 PM Admitting Attending: Giovany Vance Discharge Date: 11/16/24 Discharge Attending Physician: Jojo Rapp MD PCP name and Address: Laurie Gutierrez MD [facility] [address] Referring provider name and address: Regina Katz, WELL REACTIVATOR OPERATOR [address] [place] [address] Chief Concern, Brief History of Present Illness, and Hospital Course HPI: Teresa Rivera is a 63 y.o. F with PMH of small cell lung cancer, s/p L frontal craniotomy formetastatic brain lesion resection on 09/05/24, on Xarelto for Afib (last dose 10/11), who presented to [facility] on 11/15 from an OSH after falling and striking her head. Injuries include a traumatic SD hemorrhage adjacent to tumor bed and SSS Past 24 hours: Pt sitting up in bed, awake. Answers all orientation questions correctly. Female visitor at bedside. VSS, on room air. Endorsing pain in her left knee. Bruising noted over anterior left knee, pain with ROM. Plain films ordered, no evidence of fracture. Left hand in cock up brace. Hand/wrist films ordered and personally reviewed. NSGY has cleared pt for discharge home, with plan to hold Xarelto for 2 weeks and to keep scheduledfollow up in 3 months with MRI scan. Has been ambulating since admission. PT was ordered but pt prefers to forego evaluation in favor of discharge home today. At the time of discharge the patient was hemodynamically stable, tolerating PO, voiding spontaneously, normal bowel function, mobilizing appropriately, with their pain controlled with PO medication. At this time, the patient has obtained the maximum benefit from the present hospital stay, and so will be discharged to home. DVT prophylaxis: None at discharge HOLD YOUR XARELTO FOR 2 WEEKS (through 11/30) Procedures: N/A Restrictions: No blood thinning medications for 2 weeks (through 11/30) Incidental Findings: N/A Follow up appointments: Follow up with PCP within one week after discharge for post hospitalization visit, chronic medical conditions and incidental findings. NSGY: You will follow up as scheduled with your 3 month MRI scan Follow up with Trauma clinic as needed. [address] [place] [address] First Floor, Wing D Room [address] [place] [address], [address][phone]. Questions or Concerns and Appointments If there are questions or concerns after discharge from the hospital, please call [phone] and ask for [facility] Nurse. Working hours are Thursday - Thursday 8:00 AM to 4:00 PM. After hours, weekends and holidays please call [phone] and ask for the resident geographic information systems manager for [facility]. For appointments please call [phone]. Medication requests should be made between the hours of 9:00 AM to 3:00 PM Thursday thru Thursday. Please note that based upon recent changes to [place] law related to prescribing opioid pain medications, our providers will not provide refills on controlled medications after your hospital discharge following a major surgery or trauma. [place] 201 KAR9:260. Surgeries and Procedures Medication List .. acetaminophen 325 MG tablet Commonly known as: Tylenol Take 2 tablets by mouth every 6 hours. Under [place] law, monthly prescriptions (30 days) can be refilled at 25 days and three-month prescriptions (90 days) at 80 days. Please contact the insurance company with questions if refills are denied. Alum & Mag hydroxide, Zinc Oxide, Cholestyramine balm CMPD Commonly known as: Magic Butt Apply 1 Application topically every 1 hour as needed for diaper rash. atorvastatin 40 MG tablet Commonly known as: Lipitor Take 1 tablet by mouth every evening. benzonatate 100 MG capsule Commonly known as: Tessalon Take 1 capsule by mouth 3 times a day as needed for cough. Do not crush or chew. Breztri Aerosphere 160-9-4.8 MCG/ACT aerosol Generic drug: Qbutnix-Xpwdigrpfzj-Lzafyvydcz Inhale 2 puffs 2 (two) times a day. Calcium Carb-Cholecalciferol 600-10 MG-MCG tablet Take 1 tablet by mouth daily. calcium carbonate 500 MG chewable tablet Commonly known as: Tums Chew 1 tablet 4 times a day as needed for indigestion or heartburn. cetirizine 10 MG tablet Commonly known as: ZyrTEC Take 1 tablet by mouth daily. cholestyramine light 4 GM/DOSE powder Commonly known as: Prevalite Take 1 packet by mouth 2 times a day with meals. Cyanocobalamin ER 1000 MCG tablet controlled-release Take 1 tablet by mouth Daily. empagliflozin 25 MG Commonly known as: Jardiance Take 1 tablet by mouth daily. estradiol 0.1 MG/GM vaginal cream Commonly known as: Estrace Insert 2 g into the vagina daily. [...] skin 3 times a day with meals. lidocaine 5 % ointment Commonly known as: Xylocaine Apply 2 times a day. magic mouthwash BLM suspension Swish and spit [...] mouth daily. Do not crush or chew. montelukast 10 MG tablet Commonly known as: Singulair Take 1 tablet by mouth nightly. mupirocin 2 % ointment Commonly known as: Bactroban Apply on head 2 times a day nitrofurantoin (macrocrystal-monohydrate) 100 MG capsule Commonly known as: Macrobid Take 1 capsule by mouth 2 times a day for 9 doses. NovoLOG FLEXPEN 100 UNIT/ML injection pen Generic drug: insulin aspart Inject under the skin 3 (three) times daily with meals per correction scale as follows: blood [id number] use 2 units, 200-249 use 4 units, 250-299 use 6 units, 300-349 use 8 units, 350-399 use 10 units, >399 12 units and call provider. nystatin [id number] UNIT/GM powder Commonly known as: Mycostatin Apply on bottom 2 times a day ondansetron 8 MG tablet Commonly known as: Zofran Take 1 tablet by mouth 2 times a day. Take on Day 4 of cycle and then take PRN pantoprazole 40 MG EC tablet Commonly known as: Protonix Take 1 tablet by mouth daily. Do not crush, chew, or split. pen needle, diabetic 31G X 5 MM misc Use as directed with insulin pen. Probiotic (Lactobacillus) capsule Take 1 capsule by mouth daily. prochlorperazine 10 MG tablet Commonly known as: Compazine Take 1 tablet by mouth every 6 hours as needed for nausea or vomiting. rOPINIRole 1 MG tablet Commonly known as: Requip Take 1 tablet by mouth 2 times a day. SITagliptin 50 MG tablet Commonly known as: Januvia Take 1 tablet by mouth every morning. triamterene-hydrochlorothiazide 37.5-25 MG tablet Commonly known as: Maxzide-25 Take 1 tablet by mouth every morning. Where to Get Your Medications These medications were sent to [facility] - [place], [place] - [address] [facility] [id number] acetaminophen 325 MG tablet nitrofurantoin (macrocrystal-monohydrate) 100 MG capsule Discharge Diagnosis Medical Problems Active and Resolved Hospital Problems Hospital Brain mass Morbid obesity with BMI of 40.0-44.9, adult (CMS/HCC) Subdural hemorrhage (CMS/HCC) Anemia A-fib (CMS/HCC) Hyperglycemia due to diabetes mellitus (CMS/HCC) UTI (urinary tract infection) RESOLVED: SAH (subarachnoid hemorrhage) (CMS/HCC) * (Principal) Fall Concussion Outpatient Follow-Up Future Appointments Date Time Provider Department Center 11/29/2024 10:30 AM [facility] [place] 11/29/2024 11:00 AM [facility] Colvin [facility] [place] 11/29/2024 12:30 PM [facility] [id number] [facility] 11/30/2024 1:30 PM [facility] TREAT[facility] [id number] [facility] 12/01/2024 2:00 PM [facility] TREATMENT [id number] [facility] 12/06/2024 11:40 AM [facility] [place] 01/19/2025 9:30 AM MR 2 [facility] 01/19/2025 10:45 AM Abhilash Bangura MD [facility] 03/08/2025 1:00 PM Teresita Oconnell MD [facility] TRAUMA SURGERY TERTIARY SURVEY I performed a complete tertiary exam, reviewed patient history, lab studies and all available imaging. All traumatic or incidental findings have been documented as below: Past Medical History: Active Ambulatory Problems Diagnosis Date Noted Right leg weakness 09/01/2024 Brain mass 08/31/2024 Obesity (BMI 35.0-39.9 without comorbidity) 09/02/2024 Morbid obesity with BMI of 40.0-44.9, adult ([facility]) 09/02/2024 Extensive stage primary small cell carcinoma of lung 09/09/2024 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[facility]) 09/09/2024 Subdural hemorrhage ([facility]) 10/12/2024 Abnormal uterine bleeding 01/01/2024 Acute cystitis without hematuria 12/07/2023 Acute frontal sinusitis, unspecified 03/28/2024 Acute upper respiratory infection, unspecified 05/16/2024 Allergic rhinitis 07/08/2024 Anemia 09/06/2024 Anesthesia of skin 09/03/2024 Antineoplastic chemotherapy induced pancytopenia ([facility]) 10/27/2023 Anxiety 10/25/2024 Arthralgia of multiple joints 08/25/2013 Arthralgia 08/25/2013 Atelectasis 09/01/2024 Atherosclerosis of aorta ([facility]) 09/01/2024 Atrophic vaginitis 03/24/2022 Bacteremia 10/28/2023 Cardiomegaly 06/24/2024 Chest pain, unspecified 08/12/2024 Acute exacerbation of chronic obstructive airways disease ([facility]) 10/25/2024 Chronic respiratory failure with hypoxia 10/28/2023 Cigarette smoker 03/24/2022 Compression of vein 09/01/2024 Congenital multiple renal cysts 07/08/2024 Congenital single renal cyst 05/31/2015 Dehydration 11/14/2023 Diabetes mellitus ([facility]) 08/25/2013 Type 2 diabetes mellitus without complications 08/24/2014 Diverticular disease of colon 10/26/2023 Diverticulosis of intestine, part unspecified, without perforation or abscess without bleeding 09/01/2024 Dizziness and giddiness 11/14/2023 Dyspnea, unspecified 07/19/2024 Dysuria 07/08/2024 Essential hypertension 08/25/2013 Hypertensive disorder 03/21/2022 Prieto hematuria 03/21/2022 Functional urinary incontinence 09/08/2024 Acid reflux 10/26/2023 Glycosuria 04/20/2024 Hyperlipidemia 04/09/2020 Mixed hyperlipidemia 08/24/2014 Hyperplastic polyp of large intestine 10/26/2023 Hypomagnesemia 07/08/2024 Immunocompromised state ([facility]) 10/25/2024 Incontinence 10/25/2024 Irritable bowel syndrome 10/25/2024 Localized swelling, mass and lump, head 09/01/2024 Malignant neoplasm of upper lobe, right bronchus or lung ([facility]) 08/28/2023 Morbid (severe) obesity due to excess calories ([facility]) 09/09/2024 Cyst of kidney, acquired 09/01/2024 Multiple renal cysts 10/26/2023 Muscle weakness (generalized) 11/14/2023 Chemotherapy-induced nausea and vomiting 08/28/2023 Nausea and vomiting 04/03/2022 Hereditary and idiopathic neuropathy, unspecified 05/19/2024 Neuropathy 10/25/2024 Nonpyogenic thrombosis of intracranial venous system 08/31/2024 Cerebral edema ([facility]) 09/09/2024 Osteoarthritis 08/25/2013 Other abnormalities of gait and mobility 09/06/2024 Other chronic pain 09/07/2024 Other disorders of lung 09/01/2024 Other fatigue 07/08/2024 Weakness 09/06/2024 Other malaise 09/17/2024 Other sequelae of other nontraumatic intracranial hemorrhage 09/17/2024 Other symptoms and signs involving the musculoskeletal system 09/03/2024 Pain in right foot 02/05/2024 Pain in right toe(s) 02/25/2024 Palpitations 11/17/2023 Paroxysmal atrial fibrillation ([facility]) 09/06/2024 A-fib ([facility]) 08/31/2024 Plantar fascial fibromatosis 04/11/2024 Pneumonia, unspecified organism 08/05/2024 Polyneuropathy, unspecified 07/08/2024 Presbyopia 06/16/2024 Restless legs 08/23/2024 Other specified disorders of bladder 10/25/2024 Short Achilles tendon (acquired), right ankle 04/11/2024 Solitary pulmonary nodule 07/19/2024 Spinal stenosis, lumbar region without neurogenic claudication 08/31/2024 Stage 2 chronic kidney disease 08/12/2024 Candidiasis, unspecified 03/21/2024 Thrush 09/14/2023 Tinea unguium 02/25/2024 Tobacco dependence 10/25/2024 Type 2 diabetes mellitus with diabetic neuropathy, unspecified ([facility]) 11/20/2023 Hyperglycemia due to diabetes mellitus ([facility]) 05/31/2015 Unspecified abnormalities of gait and mobility 09/17/2024 Unspecified acute conjunctivitis, right eye 03/28/2024 Unspecified right bundle-branch block 08/31/2024 Urethral caruncle 03/24/2022 UTI (urinary tract infection) 04/20/2024 Vertebrogenic low back pain 10/25/2024 Vitamin D deficiency 03/21/2024 Pneumonia of right upper lobe due to infectious organism 10/25/2024 Resolved Ambulatory Problems Diagnosis Date Noted Atrial flutter with rapid ventricular response ([facility]) 11/19/2023 Neutropenic fever ([facility]) 10/12/2024 Sepsis without acute organ dysfunction ([facility]) 10/12/2024 Subarachnoid hemorrhage ([facility]) 10/12/2024 Abdominal bloating 04/03/2022 Past Medical History: Diagnosis Date Brain tumor ([facility]) Personal history of other diseases of the circulatory system Personal history of other diseases of the musculoskeletal system and connective tissue Personal history of other endocrine, nutritional and metabolic disease Pneumonia Past Surgical History: Surgical History[1] Home Medications: Prior to Admission medications Medication Sig Start Date End Date Taking? Authorizing Provider acetaminophen (Tylenol) 325 MG tablet Take 2 tablets by mouth every 6 hours. Under [place] law, monthly prescriptions (30 days) can be refilled at 25 days and three-month prescriptions (90 days) at 80 days. Please contact the insurance company with questions if refills are denied. 11/16/24 Yes Torrie Mustafa PA atorvastatin (Lipitor) 40 MG tablet Take 1 tablet by mouth every evening. Yes Provider, MD Jef benzonatate (Tessalon) 100 MG capsule Take 1 capsule by mouth 3 times a day as needed for cough. Donot crush or chew. 10/18/24 Yes Radha Slaughter MD Zckzhsw-Gyxrnkurqzd-Kvkpnplgrn (Breztri Aerosphere) 160-9-4.8 MCG/ACT aerosol Inhale 2 puffs 2 (two) times a day. Yes Provider, Historical, MD Calcium Carb-Cholecalciferol 600-10 MG-MCG tablet Take 1 tablet by mouth daily. Yes Jef Hendrickson MD calcium carbonate (Tums) 500 MG chewable tablet Chew 1 tablet 4 times a day as needed for indigestion or heartburn. Yes Jef Hendrickson MD cetirizine (ZyrTEC) 10 MG tablet Take 1 tablet by mouth daily. Yes Jef Hendrickson MD cholestyramine light (Prevalite) 4 GM/DOSE powder Take 1 packet by mouth 2 times a day with meals. 10/31/24 Yes Jef Hendrickson MD empagliflozin (Jardiance) 25 MG Take 1 tablet by mouth daily. Yes Jef Hendrickson MD estradiol (Estrace) 0.1 MG/GM vaginal cream Insert 2 g into the vagina daily. Yes Jef Hendrickson MD ferrous sulfate 325 (65 Fe) MG tablet Take 1 tablet by mouth daily with breakfast. Yes Jef Hendrickson MD FLUoxetine (PROzac) 40 MG capsule Take 1 capsule by mouth daily. Yes Jef Hendrickson MD gabapentin (Neurontin) 600 MG tablet Take 1 tablet by mouth 4 times a day. 11/08/24 Yes Satnam Colvin MD glucose (Trueplus Glucose) 4 g chewable tablet Chew 4 tablets as needed for low blood sugar. 10/31/24 Yes Sasha Nuñez DO hydrOXYzine HCl (Atarax) 25 MG tablet Take 1 tablet by mouth 3 times a day as needed. Yes Jef Hendrickson MD insulin glargine (Lantus) 100 UNIT/ML injection vial Inject 25 Units under the skin nightly. 10/31/24 Yes Sasha Nuñez DO insulin lispro (Admelog, HumaLOG) 100 UNIT/ML injection pen Inject 15 Units under the skin 3 times a day with meals. Yes Jef Hendrickson MD lidocaine (Xylocaine) 5 % ointment Apply 2 times a day. 11/08/24 Yes Satnam Colvin MD magic butt balm (Cholestyramine) CMPD (Magic Butt) Apply 1 Application topically every 1 hour as needed for diaper rash. 10/31/24 11/30/24 Yes Sasha Nuñez DO magic mouthwash BLM (FIRST-Mouthwash) suspension Swish and spit 15 mL 4 times a day before meals and nightly for 3 days. Patient taking differently: Swish and spit 15 mL 4 times a day as needed for mucositis. 10/18/24 Yes Radha Slaughter MD magnesium oxide (Mag-Ox) 400 MG tablet Take 1 tablet by mouth 2 times a day. Hold for diarrhea 10/04/24 Yes Satnam Colvin MD melatonin tablet Take 2 tablets by mouth nightly. Yes ProviderJef MD metFORMIN (Glucophage) 1000 MG tablet Take 1 tablet by mouth 2 times a day with meals. Yes ProviderJef MD metoprolol succinate XL (Toprol-XL) 50 MG 24 hr tablet Take 1 tablet by mouth daily. Do not crush or chew. Patient taking differently: Take 1 tablet by mouth every morning. Do not crush or chew. 11/01/24 YesSasha Nuñez DO montelukast (Singulair) 10 MG tablet Take 1 tablet by mouth nightly. Yes ProviderJef MD mupirocin (Bactroban) 2 % ointment Apply on head 2 times a day Patient taking differently: Apply 1 Application topically 2 times a day. Apply on head 2 times a day 11/08/24 Yes Satnam Colvin MD nitrofurantoin, macrocrystal-monohydrate, (Macrobid) 100 MG capsule Take 1 capsule by mouth 2 timesa day for 9 doses. 11/16/24 11/21/24 Yes Torrie Mustafa PA NovoLOG FLEXPEN 100 UNIT/ML injection pen Inject under the skin 3 (three) times daily with meals per correction scale as follows: blood sugar 150-199 use 2 units, 200-249 use 4 units, 250-299 use 6 units, 300-349 use 8 units, 350-399 use 10 units, >399 12 units and call provider. 10/31/24 Yes Sasha Nuñez DO nystatin (Mycostatin) [id number] UNIT/GM powder Apply on bottom 2 times a day 11/08/24 Yes Satnam Colvin MD ondansetron (Zofran) 8 MG tablet Take 1 tablet by mouth 2 times a day. Take on Day 4 of cycle and then take PRN 11/08/24 Yes Satnam Colvin MD pantoprazole (Protonix) 40 MG EC tablet Take 1 tablet by mouth daily. Do not crush, chew, or split.Yes Jef Hendrickson MD pen needle, diabetic 31G X 5 MM misc Use as directed with insulin pen. 10/31/24 Yes Sasha Nuñez DO Probiotic, Lactobacillus, capsule Take 1 capsule by mouth daily. 11/08/24 12/08/24 Yes Satnam Colvin MD prochlorperazine (Compazine) 10 MG tablet Take 1 tablet by mouth every 6 hours as needed for nauseaor vomiting. 11/08/24 Yes Satnam Colvin MD rOPINIRole (Requip) 1 MG tablet Take 1 tablet by mouth 2 times a day. Yes Jef Hendrickson MD SITagliptin (Januvia) 50 MG tablet Take 1 tablet by mouth every morning. Yes Jef Hendrickson MD triamterene-hydrochlorothiazide (Maxzide-25) 37.5-25 MG tablet Take 1 tablet by mouth every morning. Yes Jef Hendrickson MD Vitamin B-12 ER 1000 MCG tablet controlled-release Take 1 tablet by mouth Daily. Yes Jef Hendrickson MD Xarelto 20 MG tablet Take 1 tablet by mouth every evening. 11/16/24 Yes Jef Hendrickson MD dexamethasone (Decadron) 2 MG tablet Take 1 tablet by mouth every 12 hours. Patient taking differently: Take 1 tablet by mouth 2 times a day. 10/18/24 11/16/24 Radha Slaughter MD omeprazole (PriLOSEC) [address] capsule Take 1 capsule by mouth daily. 11/16/24 Jef Hendrickson MD tiZANidine (Zanaflex) 2 MG tablet Take 1 tablet by mouth nightly. 11/16/24 Jef Hendrickson MD 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: Pt has reports that she quit smoking about 13 months ago. Her smoking use included cigarettes. She started smoking about 49 years ago. She has a 72.6 pack-year smoking history. She has been exposed to tobacco smoke. She has never used smokeless tobacco. She reports that she does not drink alcohol and does not use drugs. (details as available below) 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 Substance and Sexual Activity Alcohol Use Never 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 Substance and Sexual Activity Drug Use Never Tobacco Use History[2] Audit-C for Alcohol Misuse Screening Lab Results Component Value Date ETOH <10 11/15/2024 Q1: How often did you have a drink containing alcohol in the past year? Never = 0 Q2: How many drinks did you have on a typical day when you were drinking in the past year? None = 0 Q3: How often did you have six or more drinks on one occasion in the past year? Never = 0 The AUDIT-C is scored on a scale of 0-12 (scores of 0 reflect no alcohol use). In men, a score of 4or more is considered positive; in women, a score of 3 or more is considered positive. Generally, the higher the AUDIT-C score, the more likely it is that the patient's drinking is affecting his/her health and safety. If screening positive (men = 4 women = 3), proceed with referral for alcohol misuse. TOTAL SCORE: 0 Brief Intervention Performed: Not indicated Referral to Treatment Made: Not indicated ITSS deferred due to patient acuity, inability to complete screening, or anticipated length of stay. ITSS to be completed when appropriate, added to 'To Do' for delayed provider screening. Tertiary exam as documented above. Radiology: All imaging reviewed New diagnoses, need for imaging or specialty consultation identified as present on admission via tertiary survey: N/A Are there limits on this patient's care or advanced wishes/documents available? No Pertinent Physical Exam At Time of Discharge Physical Exam Vitals reviewed. Constitutional: General: She is not in acute distress. Appearance: She is obese. She is ill-appearing (chronically). HENT: Head: Normocephalic. Right Ear: External ear normal. Left Ear: External ear normal. Eyes: Conjunctiva/sclera: Conjunctivae normal. Cardiovascular: Rate and Rhythm: Normal rate. Heart sounds: Normal heart sounds. Pulmonary: Effort: Pulmonary effort is normal. Breath sounds: Wheezing present. Chest: Chest wall: No tenderness. Abdominal: General: There is no distension. Palpations: Abdomen is soft. Tenderness: There is no abdominal tenderness. Musculoskeletal: Cervical back: Normal range of motion. No rigidity or tenderness. Skin: General: Skin is warm and dry. Coloration: Skin is pale. Findings: Bruising present. Neurological: Mental Status: She is alert and oriented to person, place, and time. Psychiatric: Behavior: Behavior normal. Discharge Disposition/Condition Disposition: Home Condition: Stable (s/sx potential problems absent or manageable) I spent >30 minutes of patient care and instruction time in preparation for this discharge. [1] Past Surgical History: Procedure Laterality Date BRAIN SURGERY TUBAL LIGATION N/A Tubal Ligation from [facility] TYMPANOSTOMY TUBE PLACEMENT N/A Ear Surgery Eustachian Tube from [facility] [2] 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 Tobacco Use Smoking Status Former Current packs/day: 0.00 Average packs/day: 1.5 packs/day for 48.4 years (72.6 ttl pk-yrs) Types: Cigarettes Start date: 1975 Quit date: 10/17/2023 Years since quittin.0 Passive exposure: Past Smokeless Tobacco Never Cosigned by Jojo Rapp MD at 11/16/2024 3:55 PM EDT * Marcia Pleitez 11/16/2024 3:01 PM EDT Images from the original note were not included. [id number] Fall Prevention Falls often take place due to slipping, tripping, or losing your balance. Millions of people fall every year and injure themselves. Among older adults in the [place] falls are the most common cause of traumatic brain injuries. Every 20 minutes, an older adult dies from a fall. Here are ways to reduceyour risk of falling again: ?? Think about your fall. Was there anything that caused your fall that can be fixed, removed, or replaced? ?? Make your home safe by keeping walkways clear of objects you may trip over, such as animal toys and electrical cords. ?? If you are sad or depressed talk to your health care provider. Symptoms of depression, such as feeling under the weather, or physically slowed down, have been linked to an increased fall risk. ?? Drink fluids throughout the day. Dehydration can lead to dizziness and increase your risk of falling. It's best to talk to your primary care providers about how much water you should drink. They know your medical history, your current prescriptions and your [id number] medicines. As a general rule, the [employer] [place] [employer] ([employer]) recommends taking one-third of your body weight and drinking that number of ounces in fluids. For example, if you weigh 150 pounds, you would drink at least 50 ounces, or about 6 cups, of fluid each day. Ask your provider if it's safe for you to use this formula. ?? Use nonslip pads under rugs. Don't use area rugs or small throw rugs. ?? Use nonslip mats in bathtubs and showers. ?? Hang grab rails by the toilet and inside and outside the shower. ?? Install handrails and lights on staircases. The handrails should be on both sides of the stairs. ?? Use night lights. ?? Don't walk in poorly lit areas. ?? Don't stand on chairs or wobbly ladders. ?? Use care when reaching overhead or looking up. This position can cause a loss of balance. ?? Be sure your shoes fit well, are in good condition, and have nonslip bottoms. ?? Wear shoes both inside and outside of your home. Don't go barefoot or wear slippers. ?? Be cautious when going up and down stairs, curbs, and when walking on uneven sidewalks. ?? If your balance is poor, consider using a cane or walker. Talk with your health care provider about having a balance assessment. ?? If your fall was related to alcohol use, stop or limit alcohol intake. Ask your provider for help if you think you may overuse alcohol and can't stop. ?? If your fall was related to use of sleeping medicines, talk with your provider about this. You may need to reduce your dosage at bedtime if you wake up during the night to go to the bathroom. ?? To reduce the need for nighttime bathroom trips: o Don't drink fluids for several hours before going to bed. o Empty your bladder before going to bed. o Men can keep a urinal at the bedside. ?? Stay as active as you can. Balance, flexibility, strength, and endurance all come from exercise.They all play a role in preventing falls. Ask your provider which types of activity are right for you. Try to do some type of exercise every day. ?? Get your eyes checked once a year or more often if your vision changes. Be extra cautious while adjusting to new prescription lenses. ?? If you have pets, know where they are before you stand up or walk so you don't trip over them. ?? Go over all your medicines with a pharmacist or other provider. This is to see if any of them could make you more likely to fall. Have this type of medicine review at least once every year. ?? If your provider advises a new medicine, ask if the side effects will affect your balance. ?? Don't move quickly from one position to another. For instance, don't stand up fast from sitting.This can cause dizziness and may lead to a fall. ?? Sit down when putting on pants, socks, and shoes. This will make you less likely to lose your balance and fall. ?? Always let your provider know if you have fallen since your last visit. ?? Contact your provider right away if you're having balance problems or falling more often. Last Reviewed Date: 2024 00:00:00 ?? [id number] [employer]. All rights reserved. This information is not intended as a substitute for professional medical care. Always follow your healthcare professional's instructions. * Zachary OnBRETT - Marcia Pelletier - 11/16/2024 3:01 PM EDT Images from the original note were not included. [id number] After a Fall You have had a fall today. That means that you slipped, tripped, or lost your balance. If your fallwas because of fainting or a seizure, you might need other tests. It is normal to feel sore and tight in your muscles and back the next day, and not just the musclesyou injured. Remember, all the parts of your body are connected, so while one area hurts now, the next day another may hurt. Also, when you injure yourself, it causes inflammation. This then causes the muscles to tighten up and hurt more. After the initial worsening symptoms, they should slowly improve over the next few days. Tell your healthcare provider if you have more severe pain. Even without a definite head injury, you can still get a concussion from your head suddenly jerkingforward, backward, or sideways when you fall. This is especially true if you have had concussions in the past. Concussions and even bleeding can still happen, especially if you had a recent injury ortake blood thinner medicine. It is not unusual to have a mild headache and feel tired and even nauseous or dizzy. Home care ?? Rest today and return to your normal activities when you are feeling back to normal. ?? If you were injured during the fall, follow the advice from your healthcare provider about how to care for your injury. ?? At first, don't try to stretch out the sore spots. If there is a strain, stretching may make it worse. Massage may help relax the muscles without stretching them. ?? Use an ice pack or cold compress on and off at the sore spots for 10 to 20 minutes at a time, asoften as you feel comfortable. This may help reduce the inflammation, swelling, and pain. ?? Know that if you have any scrapes (abrasions), they often heal within 10 days. Keep the scrapes clean while they start to heal. But an infection may happen even with correct care. So watch for early signs of infection (such as warmth, redness, or swelling). Medicines ?? Talk with your healthcare provider before taking new medicines, especially if you have other health problems or are taking other medicines. ?? If you need anything for pain, use acetaminophen or ibuprofen, unless you were given a differentpain medicine to use. Talk with your healthcare provider before using these medicines if you: o Have chronic liver or kidney disease o Ever had a stomach ulcer or gastrointestinal bleeding o Are taking blood-thinner medicines ?? Be careful if you are given prescription pain medicines, narcotics, or medicine for muscle spasms. They can make you sleepy and dizzy. And they can affect your coordination, reflexes, and judgment. Don't drive or do work where you can hurt yourself when taking them. Fall prevention ?? Fix, remove, or replace anything that caused your fall. ?? Make your home safe by keeping walkways clear of objects you could trip over. ?? Use nonslip pads under rugs. Don't use small area rugs or throw rugs. ?? Don't walk in poorly lit areas. ?? Don't stand on chairs or wobbly ladders. ?? Be careful when reaching overhead or looking upward. This position can cause a loss of balance. ?? Be sure your shoes fit correctly, have nonslip bottoms, and are in good condition. ?? Be careful when going up and down curbs, and walking on uneven sidewalks. ?? If your balance is poor, think about using a cane or walker. ?? Stay as active as you can. Balance, flexibility, strength, and endurance all come from exercise.They all play a role in preventing falls. ?? If you have pets, know where they are before you stand up or walk so you don't trip over them. ?? Limit alcohol intake. Alcohol can cause balance problems and increase the risk for falls. ?? Use night-lights. ?? Have your eyes tested to be sure you are seeing well, even if you already wear glasses. Follow-up Follow up with your healthcare provider, or as advised. If X-rays or CT scans were done, you will be told if there is a change in the reading, especially if it affects treatment. Call 911 Call 911 if any of these happen: ?? Trouble breathing ?? Confusion ?? Trouble waking up ?? Fainting or loss of consciousness ?? Fast or very slow heart rate ?? Seizure ?? Trouble with speech or vision, weakness of an arm or leg ?? Trouble walking or talking, loss of balance, numbness or weakness on one side of your body, or facial droop When to get medical advice Call your healthcare provider right away if any of these happen: ?? Repeated falls, including falls that seem to happen for no reason ?? Dizziness ?? Severe headache ?? Blood in vomit or stools (look black or red in color) Last Reviewed Date: 2022 00:00:00 ?? [id number] [employer]. All rights reserved. This information is not intended as a substitute for professional medical care. Always follow your healthcare professional's instructions. * Progress Notes - Domingo Waldrop MD - 11/16/2024 9:41 AM EDT Neurosurgery Consult Follow-up Note History, exam, and imaging review with attending and discussed on rounds this morning. Teresa Rivera is a 63 y.o. female presenting s/p L frontal craniotomy for brain met (09/05/24), presenting with traumatic hemorrhage adjacent to tumor bed and SSS. On Xarelto (held 10/11). No shift ormass effect. Neurologically stable Exam: GCS 15 Awake, alert, oriented CN II-XII grossly intact Strength 5/5 bilaterally No drift Sensation intact No new focal deficit - No acute neurosurgical intervention - Recommend holding xarelto for 2 weeks - Keep follow up as scheduled with 3 month MRI - Rest of care per primary team - Neurosurgery will sign off, please contact our team in case of any new concern or clinical change - Thank you for allowing us to participate in the care of this patient. Please call with any questions or concerns. [phone] Zachary Brown MD Resident Physician, PGY-2 Department of neurosurgery Pager: [phone] Cosigned by Abhilash Bangura MD at 11/17/2024 12:43 PM EDT Associated attestation - Abhilash Bangura MD - 11/17/2024 12:43 PM EDT I saw and evaluated the patient with the resident/fellow. I discussed the case with the resident/fellow and agree with the findings and plan as documented. * Assessment & Plan Note - Brandan Pedroza MD - 11/16/2024 7:16 AM EDT Associated Problem(s): Subdural hemorrhage (CMS/HCC) - L parafalcine subdural hemorrhage at the vertex measuring up to 7 mm - Kcentra and Keppra given - Stable after 6hrs - Hold AC/AP through 11/30 - Nsgy following * Assessment & Plan Note - Brandan Pedroza MD - 11/16/2024 7:16 AM EDT Associated Problem(s): Fall - Admit to SGT 6 - Tertiary 11/16 * Assessment & Plan Note - Brandan Pedroza MD - 11/16/2024 7:16 AM EDT Associated Problem(s): Morbid obesity with BMI of 40.0-44.9, adult (CMS/HCC) - Can complicate recovery * Assessment & Plan Note - Brandan Pedroza MD - 11/16/2024 7:16 AM EDT Associated Problem(s): A-fib (CMS/HCC) - Holding Xarelto in a setting of head bleed until 11/16 - Recommend discussing risk vs benefit with a PCP prior to restarting * Assessment & Plan Note - Brandan Pedroza MD - 11/16/2024 7:16 AM EDT Associated Problem(s): Concussion - Neurochecks q4 * Assessment & Plan Note - Brandan Pedroza MD - 11/16/2024 7:16 AM EDT Associated Problem(s): Anemia - Likely chronic and multifactorial - Hgb 7.2 on arrival - Monitor and transfuse if <7 or symptomatic * Assessment & Plan Note - Brandan Pedroza MD - 11/16/2024 7:16 AM EDT Associated Problem(s): UTI (urinary tract infection) - AEB UA collected on arrival - Macrobid PO through 11/21 * Assessment & Plan Note - Brandan Pedroza MD - 11/16/2024 7:16 AM EDT Associated Problem(s): Hyperglycemia due to diabetes mellitus (CMS/HCC) - CC2 diet while inpatient * Assessment & Plan Note - Brandan Pedroza MD - 11/16/2024 7:16 AM EDT Associated Problem(s): Brain mass - S/p L frontal craniotomy for metastatic brain lesion resection on 4/21/25 - Nsgy following * Hospital Course - Torrie Mustafa PA - 11/16/2024 3:43 AM EDT HPI: Teresa Rivera is a 63 y.o. F with PMH of small cell lung cancer, s/p L frontal craniotomy formetastatic brain lesion resection on 09/05/24, on Xarelto for Afib (last dose 10/11), who presented to [facility] on 11/15 from an OSH after falling and striking her head. Injuries include a traumatic SD hemorrhage adjacent to tumor bed and SSS Past 24 hours: Pt sitting up in bed, awake. Answers all orientation questions correctly. Female visitor at bedside. VSS, on room air. Endorsing pain in her left knee. Bruising noted over anterior left knee, pain with ROM. Plain films ordered, no evidence of fracture. Left hand in cock up brace. Hand/wrist films ordered and personally reviewed. NSGY has cleared pt for discharge home, with plan to hold Xarelto for 2 weeks and to keep scheduledfollow up in 3 months with MRI scan. Has been ambulating since admission. PT was ordered but pt prefers to forego evaluation in favor of discharge home today. At the time of discharge the patient was hemodynamically stable, tolerating PO, voiding spontaneously, normal bowel function, mobilizing appropriately, with their pain controlled with PO medication. At this time, the patient has obtained the maximum benefit from the present hospital stay, and so will be discharged to home. DVT prophylaxis: None at discharge HOLD YOUR XARELTO FOR 2 WEEKS (through 11/30) Procedures: N/A Restrictions: No blood thinning medications for 2 weeks (through 11/30) Incidental Findings: N/A Follow up appointments: Follow up with PCP within one week after discharge for post hospitalization visit, chronic medical conditions and incidental findings. NSGY: You will follow up as scheduled with your 3 month MRI scan Follow up with Trauma clinic as needed. 0 [facility] First Floor, Wing [address] [place] [address], #[phone]. Questions or Concerns and Appointments If there are questions or concerns after discharge from the hospital, please call [phone] and ask for [facility] Nurse. Working hours are Thursday - Thursday 8:00 AM to 4:00 PM. After hours, weekends and holidays please call [phone] and ask for the resident geographic information systems manager for [facility]. For appointments please call [phone]. Medication requests should be made between the hours of 9:00 AM to 3:00 PM Thursday thru Thursday. Please note that based upon recent changes to [place] law related to prescribing opioid pain medications, our providers will not provide refills on controlled medications after your hospital discharge following a major surgery or trauma. [place], [place] 201 KAR9:260. * H&P - Brandan Pedroza MD - 11/16/2024 2:08 AM EDTAssociated Order(s): Consult to Trauma Surgery Trauma Alert? Yes Trauma Alert Consult to Trauma Surgery Consult performed by: Brandan Pedroza MD Consult ordered by: Lona Ortiz MD Time of Consultation: 2222 Time of Trauma Evaluation: 2309 Arrival Date: 11/15 Arrival Time: 44 Referring Hospital: [facility] () Injury Date: 11/15 Transport Mode: Mode of Arrival: Air Mechanism of Injury ground-level fall Farm Related Injury: no Work Related Injury: no History Of Present Illness Teresa Rivera is a 63 y.o. female w/ PMH of small cell lung cancer (dx 07/2023), s/p L frontal craniotomy for metastatic brain lesion resection on 09/05/24, on Xarelto for Afib (last dose 10/11), presenting after ground-level fall today with acute left frontal vertex hemorrhage near prior tumor bed.No LOC. [employer] hypotension noted (SBP 80s); EMV15 on arrival, HD stable. Transferred from [facility] for concern of traumatic bleed beneath craniotomy flap. Trauma Surgery consulted for further treatment recommendations. Old Chart Reviewed: yes Loss of Consciousness: no Past Medical History She has a past medical history of Brain tumor (CMS/HCC), Chemotherapy-induced nausea and vomiting (08/28/2023), Personal history of other diseases of the circulatory system, Personal history of otherdiseases of the musculoskeletal system and connective tissue, Personal history of other endocrine, nutritional and metabolic disease, and Pneumonia. She has no past medical history of Malignant hyperthermia or Pseudocholinesterase deficiency. Surgical History She has a past surgical history that includes Tubal ligation (N/A); Tympanostomy tube placement (N/A); and Brain surgery. Family History Family History[1] 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 She reports that she quit smoking about 13 months ago. Her smoking use included cigarettes. She started smoking about 49 years ago. She has a 72.6 pack-year smoking history. She has been exposed to tobacco smoke. She has never used smokeless tobacco. She reports that she does not drink alcohol and does not use drugs. Allergies Cephalexin, Lisinopril, and Meloxicam Medications Current Medications[2] Occupational History Occupational history[3] Employer: No address on file. Immunizations reviewed VACCINE / DOSE DATE DATE DATE DATE DATE DATE Flu 02/11/2019 02/14/2020 03/13/2021 03/17/2022 02/23/2023 02/01/2024 Tetanus 09/03/2017 Pneumovax 07/13/2017 06/17/2018 Shingles 06/17/2018 Review of Systems Relevant review of systems was obtained as able and is negative unless stated above in HPI. Physical Exam Constitutional: General: She is not in acute distress. HENT: Head: Normocephalic. Comments: No facial swelling Mouth/Throat: Mouth: Mucous membranes are moist. Pharynx: Oropharynx is clear. Cardiovascular: Rate and Rhythm: Normal rate. Pulmonary: Effort: Pulmonary effort is normal. No respiratory distress. Breath sounds: Normal air entry. Comments: Speaking full sentences. Symmetric chest rise Abdominal: General: There is no distension. Musculoskeletal: General: Tenderness (Base of left thumb) present. No deformity. Normal range of motion. Cervical back: Normal range of motion. Neurological: Mental Status: She is alert. Mental status is at baseline. Comments: Awake Psychiatric: Behavior: Behavior normal. Rectal exam was deferred. Last Recorded Vitals Blood pressure 121/77, pulse 85, temperature 37.2 ??C (99 ??F), temperature source Oral, resp. rate18, weight 120 kg (263 lb 7.2 oz), SpO2 92%. Tk Tk Coma Scale Best Eye Response: Spontaneous Best Verbal Response: Oriented Best Motor Response: Follows commands Mathis Coma Scale Score: 15 Intubated No Recent Results Labs in last 18 hours CBC WBC 2.96 (L) Hb 7.2 (L) Plt 158 Hct 24.0 (L) ANC ?? INR 1.7 (H), PTT 28, Anti-Xa ?? BMP Na 141 Cl 102 BUN 22 Glu 107 (H) K 3.7 Co2 26 Cr 0.81 Ca 8.9 iCa ?? Mg ??, Phos ?? Lactate ?? LFT AST 12 AlkPhos 108 T Prot 6.4 ALK 22 Bili 0.7 Alb ?? D.Bili ?? Radiology FAST:Not Done Images associated: No Images personally reviewed and consistent with the following: CT Head wo IV Contrast Result Date: 11/15/2024 Impression: Stable appearance of left parafalcine subdural hemorrhage at the vertex measuring up to7 mm in this, and adjacent small amount of subarachnoid hemorrhage. Small subdural collection measuring 3.5 mm in thickness thickness, underlying left parietal bone flap from recent craniotomy, also unchanged. No new hemorrhages are identified. No midline shift or attenuation of basilar cisterns. No evidence of dural venous sinus or cortical vein thrombosis. CRITICAL RESULT: No. COMMUNICATION: Per this written report. Drafted by Abhilash Castorena MD on 11/15/2024 10:08 PM Final report signed by MD James on 11/15/2024 10:[address] Venogram Head Result Date: 11/15/2024 Impression: Stable appearance of left parafalcine subdural hemorrhage at the vertex measuring up to7 mm in this, and adjacent small amount of subarachnoid hemorrhage. Small subdural collection measuring 3.5 mm in thickness thickness, underlying left parietal bone flap from recent craniotomy, also unchanged. No new hemorrhages are identified. No midline shift or attenuation of basilar cisterns. No evidence of dural venous sinus or cortical vein thrombosis. CRITICAL RESULT: No. COMMUNICATION: Per this written report. Drafted by Abhilash Castorena MD on 11/15/2024 10:08 PM Final report signed by MD James on 11/15/2024 10:22 PM Impression: I personally reviewed the above labs and imaging and my personal interpretation is thatas above Assessment & Plan SAH (subarachnoid hemorrhage) (CMS/HCC) (Resolved: 11/16/2024) Present on Admission: Yes Brain mass Present on Admission: Yes - S/p L frontal craniotomy for metastatic brain lesion resection on 09/05/24 - Nsgy following Morbid obesity with BMI of 40.0-44.9, adult (CMS/HCC) Present on Admission: Not Applicable - Can complicate recovery Subdural hemorrhage (CMS/HCC) Present on Admission: Yes - L parafalcine subdural hemorrhage at the vertex measuring up to 7 mm - Kcentra and Keppra given - Stable after 6hrs - Hold AC/AP through 11/30 - Nsgy following Anemia Present on Admission: Yes - Likely chronic and multifactorial - Hgb 7.2 on arrival - Monitor and transfuse if <7 or symptomatic A-fib (CMS/HCC) Present on Admission: Yes - Holding Xarelto in a setting of head bleed until 11/16 - Recommend discussing risk vs benefit with a PCP prior to restarting Hyperglycemia due to diabetes mellitus (CMS/HCC) Present on Admission: Yes - CC2 diet while inpatient UTI (urinary tract infection) Present on Admission: Yes - AEB UA collected on arrival - Macrobid PO through 11/21 Fall Present on Admission: Yes - Admit to SGT 6 - Tertiary 11/16 Concussion Present on Admission: Yes - Neurochecks q4 Non-Hospital Problems Right leg weakness Obesity (BMI 35.0-39.9 without comorbidity) 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CMS/HCC) Abnormal uterine bleeding Acute cystitis without hematuria Acute frontal sinusitis, unspecified Acute upper respiratory infection, unspecified Allergic rhinitis Anesthesia of skin Antineoplastic chemotherapy induced pancytopenia (CMS/HCC) Anxiety Arthralgia of multiple joints Arthralgia Atelectasis Atherosclerosis of aorta (CMS/HCC) Atrophic vaginitis Bacteremia Cardiomegaly Chest pain, unspecified Acute exacerbation of chronic obstructive airways disease (CMS/HCC) Chronic respiratory failure with hypoxia Cigarette smoker Compression of vein 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 Dehydration Diabetes mellitus (CMS/HCC) Type 2 diabetes mellitus without complications Diverticular disease of colon Diverticulosis of intestine, part unspecified, without perforation or abscess without bleeding Dizziness and giddiness Dyspnea, unspecified Dysuria Essential hypertension Hypertensive disorder Prieto hematuria Functional urinary incontinence Acid reflux Glycosuria Hyperlipidemia Mixed hyperlipidemia Hyperplastic polyp of large intestine Hypomagnesemia Immunocompromised state (CMS/HCC) Incontinence Irritable bowel syndrome Localized swelling, mass and lump, head Malignant neoplasm of upper lobe, right bronchus or lung (CMS/HCC) (Chronic) Morbid (severe) obesity due to excess calories (CMS/HCC) Cyst of kidney, acquired Multiple renal cysts Muscle weakness (generalized) Chemotherapy-induced nausea and vomiting Nausea and vomiting Hereditary and idiopathic neuropathy, unspecified Neuropathy Nonpyogenic thrombosis of intracranial venous system Cerebral edema (CMS/HCC) Osteoarthritis Other abnormalities of gait and mobility Other chronic pain Other disorders of lung Other fatigue Weakness Other malaise Other sequelae of other nontraumatic intracranial hemorrhage Other symptoms and signs involving the musculoskeletal system Pain in right foot Pain in right toe(s) Palpitations Paroxysmal atrial fibrillation (CMS/HCC) Plantar fascial fibromatosis Pneumonia, unspecified organism Polyneuropathy, unspecified Presbyopia Restless legs Other specified disorders of bladder Short Achilles tendon (acquired), right ankle Solitary pulmonary nodule Spinal stenosis, lumbar region without neurogenic claudication Stage 2 chronic kidney disease Candidiasis, unspecified Thrush Tinea unguium Tobacco dependence Type 2 diabetes mellitus with diabetic neuropathy, unspecified (CMS/HCC) Unspecified abnormalities of gait and mobility Unspecified acute conjunctivitis, right eye Unspecified right bundle-branch block Urethral caruncle Vertebrogenic low back pain Vitamin D deficiency Pneumonia of right upper lobe due to infectious organism Disposition: Admit to SGT NSGY on board, appreciate recs Restart home meds as appropriate Brandan Pedroza MD [1] Family History Problem Relation Name Age of Onset No Known Problems Mother No Known Problems Father Diabetes Other Fibromyalgia Other [2] Current Facility-Administered Medications Medication Dose Route Frequency Provider Last Rate Last Admin acetaminophen (Tylenol) tablet 650 mg 650 mg Oral q6h Torrie Rene PA dextrose 5 % and lactated Ringer's infusion 100 mL/hr Intravenous Continuous Chery Nolasco MD100 mL/hr at 11/16/24 0138 100 mL/hr at 11/16/24 0138 nitrofurantoin (macrocrystal-monohydrate) (Macrobid) capsule 100 mg 100 mg Oral BID Keren Ledbetter APRN ondansetron (Zofran) injection 4 mg 4 mg Intravenous q6h PRN Torrie Mustafa PA Or ondansetron ODT (Zofran-ODT) disintegrating tablet 4 mg 4 mg Oral q6h PRN Torrie Mustafa PA oxyCODONE (Roxicodone) immediate release tablet 5 mg 5 mg Oral q4h PRN Torrie Mustafa PA Or oxyCODONE (Roxicodone) immediate release tablet 10 mg 10 mg Oral q4h PRN Torrie Mustafa PA sodium chloride 0.9 % flush 10 mL 10 mL Intravenous q12h Chery Nolasco MD 10 mL at 11/16/24 0131 And sodium chloride 0.9 % flush 10 mL 10 mL Intravenous PRN Chery Nolasco MD Current Outpatient Medications Medication Sig Dispense Refill atorvastatin (Lipitor) 40 MG tablet Take 1 tablet by mouth daily. benzonatate (Tessalon) 100 MG capsule Take 1 capsule by mouth 3 times a day as needed for cough. Donot crush or chew. 20 capsule 0 Ynaqorx-Ayyiwgbrzkg-Mafhnkqntj (Breztri Aerosphere) 160-9-4.8 MCG/ACT aerosol Inhale 2 [...] mouth 2 times a day with meals. dexamethasone (Decadron) 2 MG tablet Take 1 tablet by mouth every 12 hours. 10 tablet 0 empagliflozin (Jardiance) 25 MG Take 1 tablet [...] mouth 4 times a day. 120 tablet 0 glucose (Trueplus Glucose) 4 g chewable tablet Chew 4 tablets as needed for low blood sugar. 50 tablet 12 hydrOXYzine HCl (Atarax) 25 MG tablet Take 1 tablet by mouth 3 times a day as needed. insulin glargine (Lantus) 100 UNIT/ML injection vial Inject 25 Units under the skin nightly. 10 mL 3 insulin lispro (Admelog, HumaLOG) 100 UNIT/ML injection pen Inject 15 Units under the skin 3 times a day with meals. lidocaine (Xylocaine) 5 % ointment Apply 2 times a day. 30 g 0 magic butt balm (Cholestyramine) CMPD (Magic Butt) Apply 1 Application topically every 1 hour as needed for diaper rash. 80 g 0 magic mouthwash BLM (FIRST-Mouthwash) suspension Swish and spit 15 mL 4 times a day before meals and nightly for 3 days. 180 mL 0 magnesium oxide (Mag-Ox) 400 MG tablet Take 1 tablet by mouth 2 times a day. Hold for diarrhea 60 tablet 1 melatonin tablet Take 2 tablets by mouth nightly. metFORMIN (Glucophage) 1000 MG tablet Take 1 tablet by mouth 2 times a day with meals. metoprolol succinate XL (Toprol-XL) 50 MG 24 hr tablet Take 1 tablet by mouth daily. Do not crush or chew. 90 tablet 0 montelukast (Singulair) 10 MG tablet Take 1 tablet by mouth nightly. mupirocin (Bactroban) 2 % ointment Apply on head 2 times a day 22 g 0 NovoLOG FLEXPEN 100 UNIT/ML injection pen Inject under the skin 3 (three) times daily with meals per correction scale as follows: blood sugar 150-199 use 2 units, 200-249 use 4 units, 250-299 use 6 units, 300-349 use 8 units, 350-399 use 10 units, >399 12 units and call provider. 15 mL 3 nystatin (Mycostatin) 204493 UNIT/GM powder Apply on bottom 2 times a day 30 g 0 omeprazole (PriLOSEC) [address] capsule Take 1 capsule by mouth daily. ondansetron (Zofran) 8 MG tablet Take 1 tablet by mouth 2 times a day. Take on Day 4 of cycle and then take PRN 30 tablet 5 pantoprazole (Protonix) 40 MG EC tablet Take 1 tablet by mouth daily. Do not crush, chew, or split. pen needle, diabetic 31G X 5 MM misc Use as directed with insulin pen. 100 each 11 Probiotic, Lactobacillus, capsule Take 1 capsule by mouth daily. 30 capsule 1 prochlorperazine (Compazine) 10 MG tablet Take 1 tablet by mouth every 6 hours as needed for nauseaor vomiting. 30 tablet 3 rOPINIRole (Requip) 1 MG tablet Take 1 [...] Take 1 tablet by mouth every evening. [3] Cosigned by Giovany Vance MD at 11/21/2024 9:07 AM EDT Associated attestation - Giovany Vance MD - 11/21/2024 9:07 AM EDT I saw and evaluated the patient. I discussed the case with the resident/fellow and agree with the findings and plan as documented. * Progress Notes - Angelita Steen MD - 11/15/2024 10:09 PM EDT Neurosurgery Update Note 6-hr repeat CT Head (Dual Energy): Stable left parafalcine subdural hematoma. Tumor bed hyperdensity likely represents post-surgical products (Surgicel) with superimposed acute blood products. No obvious superior sagittal sinus injuryor thrombosis noted. Independent interpretation; recommend follow-up with formal radiology reads if further clarification needed. Management: Received KCentra and Keppra. Patient remains at neurologic baseline. Recommend overnight observation given Xarelto use. Hold all anticoagulation/antiplatelets for 2 weeks unless strong contraindication arises. F/u w/ cardiology Follow-up in clinic as scheduled. Please reach out to Neurosurgery with any questions or concerns Angelita Steen MD PGY-3, Neurosurgery Cosigned by Gabino Adam MD at 11/24/2024 6:09 PM EDT * Progress Notes - Becki Plasencia, PharmD - 11/15/2024 8:09 PM EDT Pharmacy Anticoagulation Reversal Patient was evaluated for reversal of Rivaroxaban. Clinical Course: Patient is a 63 y.o. female who presents as a TAR from OSH s/p ground [place] [facility] [place] she had a follow-up appt. for recent brain mass resection, (-) LOC. Patient was hemodynamically stable on arrival with GCS 15. Patient takes ASA and Xarelto daily, reported last dose of Xarelto this morning. OSH imaging showing acute intracranial hemorrhage. 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 s/p craniotomy for metastatic resection on palliative chemo/radiation, COPD, Afib (on Xarelto) PSH: Past Surgical History: Procedure Laterality Date BRAIN SURGERY TUBAL LIGATION N/A Tubal Ligation from [facility] TYMPANOSTOMY TUBE PLACEMENT N/A Ear Surgery Eustachian Tube from [facility] Allergies: Cephalexin, Lisinopril, and Meloxicam Height/Weight: Ht Readings from Last 1 Encounters: 11/10/24 1.702 m (5' 7 ) Wt Readings from Last 1 Encounters: 11/15/24 120 kg (263 lb 7.2 oz) Labs: INR (no units) Date/Time Value 11/15/2024 1851 1.7 (H) Vitals: Visit Vitals BP 103/58 Pulse 69 Temp 36.6 ??C (97.9 ??F) (Oral) Resp 19 Anticoagulation History: Patient is anticoagulated with of Rivaroxaban for Atrial fibrulation/atrial flutter. Patient reports that they are compliant with dosing. Verified fill Xarelto fill history via Surescripts. Last dose: morning of 11/15/2024 per patient Other Pertinent Concomitant Medications: Aspirin Assessment of Bleeding and General Approaches to Management: Severe/Life Threatening Severe bleeding encompasses forms of bleeding that are life threatening. Anticoagulant should be discontinued in these patients, and supportive care and local hemostasis measures Consideration of targeted reversal agents (Idarucizumab) / nonspecific reversal agents (KCentra) Recommendations: Risk vs. benefits of KCentra treatment was discussed with team specifics outlined above and due to severity of bleeding, clinical picture, timing of last dose and coagulation parameters anticoagulantreversal was completed. Prepared and administered KCentra 4930 units (~41 units/kg factor IX) as a bolus dose at 1944 (lot#[id number], factor IX 493 units/vial x10 vials). Monitoring: Anti Xa levels calibrated for individual anti Xa inhibitors are currently not available at for assessment. Anti Xa levels calibrated for heparin or enoxaparin are less sensitive for oral Anti Xa Inhibitors. A normal anti-Xa level using any calibrator may exclude clinically relevant levels of anyof the Xa inhibitors. Mild increases in the PT/INR can be seen however a normal PT/INR may occur at typical trough levels. Recommend reassessment of clinical signs and symptoms of bleeding and complications secondary to thrombolytic events post KCentra administration. Becki Plasencia, VeritoD PGY1 Resident Pharmacist Available via Secure Chat * Consults - Gabino Adam MD - 11/15/2024 7:19 PM EDTAssociated Order(s): Inpatient consult to Neurosurgery Inpatient consult to Neurosurgery Consult performed by: Angelita Steen MD Consult ordered by: Lona Ortiz MD Reason for Consult Traumatic intracranial hemorrhage under prior craniotomy site Requesting Service ED Requested Date/Time 11/15/2024 7:20 PM History Of Present Illness Teresa Rivera is a 63 y.o. female w/ PMH of small cell lung cancer (dx 07/2023), s/p L frontal craniotomy for metastatic brain lesion resection on 09/05/24, on Xarelto for Afib (last dose 10/11), presenting after ground-level fall today with acute left frontal vertex hemorrhage near prior tumor bed.No LOC. [employer] hypotension noted (SBP 80s); EMV15 on arrival, HD stable. Transferred from [facility] for concern of traumatic bleed beneath craniotomy flap. Last neurosurgery clinic visit on 09/22 noted improving R hemibody strength and intact wound. Imaging CTH: Small acute L frontal hemorrhage adjacent to tumor bed and SSS, with mild edema, no mass effect. Overlying small tentorial SDH. Neuro Exam GCS 15 Awake, alert, oriented CN II-XII grossly intact Strength 5/5 bilaterally No drift Sensation intact No new focal deficit Past Medical History[1] Surgical History[2] Tobacco Use: Medium Risk (11/15/2024) Patient History Smoking Tobacco Use: Former Smokeless Tobacco Use: Never Passive Exposure: Past Current Scheduled Medications[3] Current Continuous Medications[4] Allergies[5] Impression This is a 63 y.o. female s/p L frontal craniotomy for brain met (09/05/24), presenting with traumatic hemorrhage adjacent to tumor bed and SSS. On Xarelto (held 10/11). No shift or mass effect. Neurologically stable. Plan [] Fully reverse anticoagulation [] Repeat dual-energy CTH in 6 hr from last CTH [] CT venogram to assess SSS involvement [] Neuro checks Q2 [] Keppra bid dosing per pharmacy [] Continue to monitor for neuro decline [] NSGY to continue to follow [] Rest per HM/cards/Onc as needed [] Plan explained to the patient and family at bedside Please Call NSGY w/ any exam changes, questions, or concerns. Angelita Steen MD PGY-3, Neurosurgery [1] Past Medical History: Diagnosis Date [...] SURGERY TUBAL LIGATION N/A Tubal Ligation from [facility] TYMPANOSTOMY TUBE PLACEMENT N/A Ear Surgery Eustachian Tube from [facility] [3] levETIRAcetam, 2,000 mg, Intravenous, Once [4] [5] Allergies Allergen Reactions Cephalexin Other - please document in the comment field Patient states makes her feel tired Lisinopril Cough and Other - please document in the comment field Meloxicam Cough and Other - please document in the comment field * Clinician Note - Eliseo Beauchamp DO - 11/15/2024 4:50 PM EDT I was present at the trauma activation. I have spoken with the EM physician who is performing the evaluation. ATLS resuscitation is in process and I have assessed the need for immediate surgery, intervention and/or imaging. Ongoing workup and stabilization per EM physician. Trauma/Surgical Critical Care will be available as needed. 63 yoF who underwent recent resection for brain mass and was in the neurosurgical clinic when she suffered a ground level fall landing face first. No LOC. HD stable en route however single episode ofhypotension so she was upgraded to a TAR. GCS 15 and HD stable on arrival, moving all extremities. Case discussed with EM attending and Dr. Henley - decision made to downgrade to TA. * Consults - Ester Stein - 11/15/2024 4:46 PM EDT Pastoral Care Note Responded to a trauma alert red that was downgraded to a trauma alert. Care team members were tending to patient. Per flight crew, famly is on their way from about an hour away. Referral From: Other (Comment) (pager) Pastoral Care Provided For: Patient Patient Profile: Consult Reasons: Trauma alert red, Trauma alert Unable to Assess: Unavailable, No family present at this time, Other (Comment) (care team tending to patient) Spiritual Assessment: Support Systems/ Spiritual Resources: Unknown Spiritual Issues: Trauma/ crisis Interventions: Interventions Provided: Attempted visit, Consulted with care team Pastoral Care Outcomes: Patient Outcomes: Unable to Assess * Clinician Note - Zeke Randolph RN - 11/15/2024 4:42 PM EDT Right upper extremity PIV X2 removed due to infiltration. Wrapped with warm compress and elevated. Team made aware. * Care Plan - Clare Canada - 11/15/2024 4:42 PM EDT Pt educated about use of call garrison. Non-slip socks placed on patient. Stand by assist to use the restroom. Pt educated to use call light when in need of assistance to ambulate and to not ambulate alone. * Care Plan - Marcia Pelletier - 11/15/2024 4:42 PM EDT Problem: Adult Inpatient Plan of Care Goal: Plan of Care Review Outcome: Adequate for Care Transition Goal: Patient-Specific Goal (Individualized) Outcome: Adequate for Care Transition Goal: Absence of Hospital-Acquired Illness or Injury Outcome: Adequate for Care Transition Goal: Optimal Comfort and Wellbeing Outcome: Adequate for Care Transition Goal: Readiness for Transition of Care Outcome: Adequate for Care Transition Problem: Fall Injury Risk Goal: Absence of Fall and Fall-Related Injury Outcome: Adequate for Care Transition * ED Provider Notes - Dania Ibrahim MD - 11/15/2024 4:42 PM EDT Images from the original note were not included. - HPI Chief Complaint Patient presents with Trauma Alert Red HPI This is a 63-year-old female with PMH of small cell lung cancer (dx 07/2023), s/p L frontal craniotomy for metastatic brain lesion resection on 09/05/24, on Xarelto for Afib (last dose 10/11) who presents emerged department as a trauma alert read after she initially presented to outside hospital after falling and hitting her head and being found to have signs concerning for head bleed on CT scan. Patient had 1 hypotensive reading while in transport. Patient states that she currently has a headache and pain in her left thumb. Patient History Past Medical History[1] Surgical History[2] Family History[3] 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[4] Allergies: Allergies[5] Physical Exam ED Triage Vitals Temp Heart Rate Resp BP 11/15/24 1646 11/15/24 1645 11/15/24 1645 11/15/24 1645 36.6 ??C (97.9 ??F) 87 16 116/81 SpO2 Temp Source Heart Rate Source Patient Position 11/15/24 1647 11/15/24 1646 -- -- 93 % Oral BP Location FiO2 (%) -- -- Physical Exam Constitutional: General: She is not in acute distress. HENT: Head: Normocephalic. Comments: No facial swelling Mouth/Throat: Mouth: Mucous membranes are moist. Pharynx: Oropharynx is clear. Cardiovascular: Rate and Rhythm: Normal rate. Pulmonary: Effort: Pulmonary effort is normal. No respiratory distress. Breath sounds: Normal air entry. Comments: Speaking full sentences. Symmetric chest rise Abdominal: General: There is no distension. Musculoskeletal: General: Tenderness (Base of left thumb) present. No deformity. Normal range of motion. Cervical back: Normal range of motion. Neurological: Mental Status: She is alert. Mental status is at baseline. Comments: Awake Psychiatric: Behavior: Behavior normal. Tk Coma Scale Score: 15 ED Course & MDM - Assessment: 63 y.o. female presents to ED with complaint of head bleed. It should be noted that the chronic conditions includes AFib on Xarelto, This complicates the clinical picture because it Comorbidities: increases the risk for morbidity Differential Diagnosis: Subdural, epidural, subarachnoid, fracture In order to fully explore the differential diagnosis the following treatments and tests were ordered: ED Medication Administration from 11/15/2024 1456 to 11/16/2024 0017 Date/Time Order Dose Route Action 11/15/2024 1934 EDT levETIRAcetam (Keppra) injection 2,000 mg 2,000 mg Intravenous Given 11/15/20241943 EDT four factor human prothrombin complex Concentrate (Kcentra) 4,930 Units, empty bag 1 each infusion 4,930 Units Intravenous New Bag 11/15/20242009 EDT four factor human prothrombin complex Concentrate (Kcentra) 4,930 Units, empty bag 1 each infusion 0 Units Intravenous Stopped 11/15/20242101 EDT HYDROmorphone (Dilaudid) injection 0.5 mg 0.5 mg Intravenous Given 11/15/20242121 EDT iohexol (OMNIPaque) 350 MG/ML injection 100 mL 100 mL Intravenous Given All Other Orders Ordered Status Ordering Provider 11/15/242222 Consult to Trauma Surgery Once Specialty: Trauma Surgery Provider: (Not yet assigned) Acknowledged DANIA IBRAHIM 11/15/24 1824 Once Canceled DANIA IBRAHIM 11/15/[address] Head wo IV Contrast Once Final result DANIA IBRAHIM 11/15/[address] Venogram Head Once Final result DANIA IBRAHIM 11/15/24 1856 Extra Tubes Once Final result LONA ORTIZ 11/15/24 1856 Gold Top PROCEDURE ONCE Final result LONA ORTIZ 11/15/24 1749 Trauma shock panel blood gas STAT Comments: Trauma Alert Final result DANIA IBRAHIM 11/15/24 1824 Inpatient consult to Neurosurgery Once Specialty: Neurosurgery Provider: (Not yet assigned) Completed DANIA IBRAHIM 11/15/24 1749 Vital Signs Every 1 hour Acknowledged DANIA IBRAHIM 11/15/24 1749 Neuro checks Every 1 hour Acknowledged DANIA IBRAHIM 11/15/24 1749 2 Large Bore IV's Continuous Comments: 2 Large Bore IV's Acknowledged DANIA IBRAHIM 11/15/24 1749 Printer Assistant Until discontinued Acknowledged DANIA IBRAHIM 11/15/24 1749 Continuous Pulse Oximetry Until discontinued Acknowledged DANIA IBRAHIM 11/15/24 1749 Oxygen Therapy - Device: Nasal Cannula Continuous Order ID Start Status Ordering Provider [id number] 11/15/24 1750 Completed DANIA IBRAHIM [id number] 11/15/241999 Completed DANIA IBRAHIM [id number] 11/16/24 0800 Acknowledged DANIA IBRAHIM [id number] 11/16/241999 Acknowledged DANIA IBRAHIM M 11/17/24 0800 Scheduled DANIA IBRAHIM M 11/17/241999 Scheduled DANIA IBRAHIM M 11/18/24 0800 Scheduled DANIA IBRAHIM M 11/18/241999 Scheduled DANIA IBRAHIM M 11/19/24 0800 Scheduled DANIA IBRAHIM M 11/19/241999 Scheduled DANIA IBRAHIM M 11/20/24 0800 Scheduled ROSSDANIA M 11/20/241999 Scheduled DANIA IBRAHIM M 11/21/24 0800 Scheduled DANIA IBRAHIM M 11/21/241999 Scheduled DANIA IBRAHIM M 11/22/24 0800 Scheduled DANIA IBRAHIM M 11/22/241999 Scheduled DANIA IBRAHIM M 11/23/24 0800 Scheduled DANIA IBRAHIM M 11/23/241999 Scheduled DANIA IBRAHIM M Acknowledged DANIA IBRAHIM 11/15/24 1749 CMP STAT Comments: Trauma Alert Final result DANIA IBRAHIM 11/15/24 1749 CBC w/o diff STAT Comments: Trauma Alert Final result DANIA IBRAHIM 11/15/24 1749 PT-INR STAT Comments: Trauma Alert Final result DANIA IBRAHIM 11/15/24 1749 APTT (PTT) STAT Comments: Trauma Alert Final result DANIA IBRAHIM 11/15/24 1749 Ethyl Alcohol Plasma STAT Comments: Trauma Alert Final result DANIA IBRAHIM 11/15/24 1749 Drug Abuse Screen, Urine STAT Comments: Trauma Alert Acknowledged DANIA IBRAHIM 11/15/24 1749 Urinalysis with reflex microscopic (Culture NOT Included) STAT Comments: Trauma Alert Acknowledged DANIA IBRAHIM 11/15/24 1749 Test Qualitative Plasma STAT Comments: Trauma Alert Final result DANIA IBRAHIM 11/15/24 1749 Type and Screen Start now Comments: Trauma Alert Final result DANIA IBRAHIM 11/15/24 1749 Trauma Alert Notification Once Completed DANIA IBRAHIM 11/15/24 1742 Initiate contact isolation Continuous Comments: Added via Instant Order OPA Acknowledged BPA, INSTANT ORDERS 11/15/24 1649 POCT glucose meter PROCEDURE ONCE Final result POCT, GENERIC PROVIDER ED Course as of 11/16/2416Nov 16, 202414 At the time of patient's arrival she was initially alerted as a trauma alert read due to her hypotension. However after patient was evaluated in the Trauma [place] she was quickly downgraded to a trauma alert commands the patient's stable vital signs and exam. Outside imaging was reviewed by our radiologist and was concerning for new subarachnoid hemorrhage and potential nondisplaced fracture ofthe left thumb. Neurosurgery was consulted to evaluate patient and requested the patient receive Kcentra to reverse her Xarelto as well as Keppra to prevent seizure burden. Patient required 1 dose ofIV Dilaudid for pain medicine. Trauma alert labs were ordered and patient had non actionable abnorma lities across CBC, CMP, INR and trauma panel blood gas. Repeat CT venogram and CT head without IV contrast were ordered for 6 hours from time of original scans. These repeat scan showed stable head bleed. Trauma surgery was consulted to evaluate patient for admission given the fact the patient meets brain injury guidelines 3 classification and would likely benefit from continued observation overnight [BR] ED Course User Index [BR] Dania Ibrahim MD Clinical Impressions as of 11/16/2416 SAH (subarachnoid hemorrhage) (CMS/HCC) SDH (subdural hematoma) (CMS/HCC) Nondisplaced fracture of distal phalanx of left thumb, initial encounter for closed fracture Social Determinates of Health Risks (including Economic Stability, Education and level of understanding, Healthcare access and quality and concerning social factors): Lives far away Ultimately, this patient was Was admitted (Admission) The primary encounter diagnosis was SAH (subarachnoid hemorrhage) (CMS/HCC). Diagnoses of SDH (subdural hematoma) (CMS/HCC) and Nondisplaced fracture of distal phalanx of left thumb, initial encounter for closed fracture were also pertinent to this visit.. Patient believed to require admission for the listed diagnoses. The Trauma Surgery service was consulted for admission and was [...] SURGERY TUBAL LIGATION N/A Tubal Ligation from [facility] TYMPANOSTOMY TUBE PLACEMENT N/A Ear Surgery Eustachian Tube from [facility] [3] Family History Problem Relation Name Age [...] Alcohol use: Never Drug use: Never [5] Allergies Allergen Reactions Cephalexin Other - please document in the comment field Patient states makes her feel tired Lisinopril Cough and Other - please document in the comment field Meloxicam Cough and Other - please document in the comment field Dania Ibrahim MD Resident 11/16/24 0017 Cosigned by Lona Ortiz MD at 11/21/2024 9:42 PM EDT Associated attestation - Lona Ortiz MD - 11/21/2024 9:42 PM EDT I saw and evaluated the patient with the resident/fellow. I discussed the case with the resident/fellow and agree with the findings and plan as documented. * ED Triage Notes - Giovany Richey RN - 11/15/2024 4:42 PM EDT Fall from standing at home, recent hx brain tumor resection, patient takes Eliquis for afib. EMV15,-LOC. Hpotensive episode fourdrinier machine tender, 80s SBP. documented in this encounter Plan of Treatment Upcoming Encounters Date Type Department Care Team (Abhilash Contact Info) Description 01/05/2025 1:00 PM EDT Office Visit [facility] [address] [place] [address] Lia Barnes, WELL REACTIVATOR OPERATOR [address] [facility] [address] [place] [address] 01/10/2025 9:00 AM EDT Clinical Support [facility] [address] [facility] 2nd [place] [address] 01/10/2025 9:40 AM EDT Office Visit [facility] [address] [facility]nd [place] [address] Satnam Colvin MD [address] [facility] [address] [place] [address] 01/10/2025 12:00 PM EDT Appointment [facility] [address] [place] [address] 01/11/2025 3:30 PM EDT Appointment [facility] [address] [place] [phone] 01/12/2025 3:30 PM EDT Appointment [facility] [address] [place] [phone] 01/19/2025 9:20 AM EDT Appointment [facility] [address]st [place] [id number] 01/19/2025 10:45 AM EDT Office Visit [facility] [address], [address] [place] [address] Abhilash Bangura MD [address] [place] [address] 01/26/2025 4:30 PM EDT Office Visit [facility] [address] [facility] [place] [address] Lia Barnes, WELL REACTIVATOR OPERATOR [address] [facility] [address] [place] [address] 03/08/2025 1:00 PM EDT Office Visit [facility] [address] [place] [id number] Teresita Oconnell MD [address] [place] [address] documented as of this encounter Procedures Procedure Name Priority Date/Time Associated Diagnosis Comments XR KNEE LEFT 3 VIEWS STAT 11/16/2024 8:30 AM EDT XR HAND LEFT 3+ VIEWS STAT 11/16/2024 8:30 AM EDT XR WRIST LEFT 3+ VIEWS STAT 8:30 AM EDT MULTI DRUG RESISTANCE TEST Routine 11/16/2024 1:41 AM EDT URINALYSIS MICROSCOPIC FOR UA REFLEX STAT 11/16/2024 1:14 AM EDT DRUG ABUSE SCREEN, URINE STAT 11/16/2024 1:14 AM EDT URINALYSIS WITH REFLEX MICROSCOPIC STAT 11/16/2024 1:[address] VENOGRAM HEAD STAT 11/15/2024 9:[address] HEAD WO IV CONTRAST STAT 9:21 PM EDT TRAUMA SHOCK PANEL BLOOD GAS STAT 11/15/2024 8:06 PM EDT ETHYL ALCOHOL PLASMA STAT 11/15/2024 6:51 PM EDT APTT STAT 11/15/2024 6:51 PM EDT PROTHROMBIN TIME(PT) / INR STAT 11/15/2024 6:51 PM EDT CBC W/O DIFFERENTIAL STAT 11/15/2024 6:51 PM EDT TYPE AND SCREEN STAT 11/15/2024 6:51 PM EDT TEST QUALITATIVE PLASMA STAT 11/15/2024 6:51 PM EDT COMPREHENSIVE METABOLIC PANEL, PLASMA STAT 11/15/2024 6:51 PM EDT EXTRA TUBE GOLD TOP Routine 11/15/2024 6 :41 PM EDT EXTRA TUBES Routine 11/15/2024 6:41 PM EDT OXYGEN THERAPY STAT 11/15/2024 5:50 PM EDT OXYGEN THERAPY STAT 11/15/2024 5:50 PM EDT OXYGEN THERAPY STAT 11/15/2024 5:50 PM EDT POCT GLUCOSE METER UNSOLICITED RESULTS Routine 11/15/2024 4:49 PM EDT documented in this encounter Results * XR Hand 3+ Views Left (11/16/2024 8:30 AM EDT) Anatomical Region Laterality Modality Upper Extremities, Hand Left Digital Radiography Impressions 11/16/2024 8:47 AM EDT 1. Osteoarthritis of the left hand that is severe in the first carpometacarpal joint. No acute osseous or articular abnormality of the left hand or wrist. 2. Prepatellar soft tissue swelling consistent with contusion. No fracture of the left knee. 3. Moderate to severe osteoarthritis of the left patellofemoral joint. CRITICAL RESULT: No. COMMUNICATION: Per this written report. Drafted by Davin Mcdonough MD on 11/16/2024 8:42 AM Final report signed by Davin Mcdonough MD on 11/16/2024 8:47 AM Narrative 11/16/2024 8:47 AM EDT CLINICAL INDICATION: pain TECHNIQUE: XR KNEE LEFT 3 VIEWS, XR HAND LEFT 3+ VIEWS, XR WRIST LEFT 3+ VIEWS COMPARISON: August 25, 2013. FINDINGS: 3 views of the left hand and 3 views of the left wrist show osteoarthritis of interphalangeal joints. Severe osteoarthritis of the first carpometacarpal joint. Minimal degenerative changes of MCP joints. Coalition between the hamate and capitate. No fracture or erosive changes. No fracture. 3 views of the left knee show anterior knee soft tissue swelling. No effusion. Patellofemoral joint space narrowing and tricompartmental osteophyte formation. No fracture or bone destruction. Procedure Note Davin Mcdonough MD - 11/16/2024 CLINICAL INDICATION: pain TECHNIQUE: XR KNEE LEFT 3 VIEWS, XR HAND LEFT 3+ VIEWS, XR WRIST LEFT 3+ VIEWS COMPARISON: August 25, 2013. FINDINGS: 3 views of the left hand and 3 views of the left wrist show osteoarthritisof interphalangeal joints. Severe osteoarthritis of the firstcarpometacarpal joint. Minimal degenerative changes of MCP joints.Coalition between the hamate and capitate. No fracture or erosive changes.No fracture. 3 views of the left knee show anterior knee soft tissue swelling. Noeffusion. Patellofemoral joint space narrowing and tricompartmentalosteophyte formation. No fracture or bone destruction. IMPRESSION: 1.Osteoarthritis of the left hand that is severe in the firstcarpometacarpal joint. No acute osseous or articular abnormality of theleft hand or wrist. 2.Prepatellar soft tissue swelling consistent with contusion. No fractureof the left knee. 3.Moderate to severe osteoarthritis of the left patellofemoral joint. CRITICAL RESULT: No. COMMUNICATION: Per this written report. Drafted by Davin Mcdonough MD on 11/16/2024 8:42 AM Final report signed by Davni Mcdonough MD on 11/16/2024 8:47 AM Torrie RAMOS IMG XR PROCEDURES Final Resul t * XR Wrist Left 3+ Views (11/16/2024 8:30 AM EDT) Anatomical Region Laterality Modality Upper Extremities, Wrist Left Digital Radiography Impressions 11/16/2024 8:47 AM EDT 1. Osteoarthritis of the left hand that is severe in the first carpometacarpal joint. No acute osseous or articular abnormality of the left hand or wrist. 2. Prepatellar soft tissue swelling consistent with contusion. No fracture of the left knee. 3. Moderate to severe osteoarthritis of the left patellofemoral joint. CRITICAL RESULT: No. COMMUNICATION: Per this written report. Drafted by Davin Mcdonough MD on 11/16/2024 8:42 AM Final report signed by Davin Mcdonough MD on 11/16/2024 8:47 AM Narrative 11/16/2024 8:47 AM EDT CLINICAL INDICATION: pain TECHNIQUE: XR KNEE LEFT 3 VIEWS, XR HAND LEFT 3+ VIEWS, XR WRIST LEFT 3+ VIEWS COMPARISON: August 25, 2013. FINDINGS: 3 views of the left hand and 3 views of the left wrist show osteoarthritis of interphalangeal joints. Severe osteoarthritis of the first carpometacarpal joint. Minimal degenerative changes of MCP joints. Coalition between the hamate and capitate. No fracture or erosive changes. No fracture. 3 views of the left knee show anterior knee soft tissue swelling. No effusion. Patellofemoral joint space narrowing and tricompartmental osteophyte formation. No fracture or bone destruction. Procedure Note Davin Mcdonough MD - 11/16/2024 CLINICAL INDICATION: pain TECHNIQUE: XR KNEE LEFT 3 VIEWS, XR HAND LEFT 3+ VIEWS, XR WRIST LEFT 3+ VIEWS COMPARISON: August 25, 2013. FINDINGS: 3 views of the left hand and 3 views of the left wrist show osteoarthritisof interphalangeal joints. Severe osteoarthritis of the firstcarpometacarpal joint. Minimal degenerative changes of MCP joints.Coalition between the hamate and capitate. No fracture or erosive changes.No fracture. 3 views of the left knee show anterior knee soft tissue swelling. Noeffusion. Patellofemoral joint space narrowing and tricompartmentalosteophyte formation. No fracture or bone destruction. IMPRESSION: 1.Osteoarthritis of the left hand that is severe in the firstcarpometacarpal joint. No acute osseous or articular abnormality of theleft hand or wrist. 2.Prepatellar soft tissue swelling consistent with contusion. No fractureof the left knee. 3.Moderate to severe osteoarthritis of the left patellofemoral joint. CRITICAL RESULT: No. COMMUNICATION: Per this written report. Drafted by Davin Mcdonough MD on 11/16/2024 8:42 AM Final report signed by Davin Mcdonough MD on 11/16/2024 8:47 AM Torrie RAMOS IMG XR PROCEDURES Final Resul t * XR Knee Left 3 Views (11/16/2024 8:30 AM EDT) Anatomical Region Laterality Modality Lower Extremities, Knee Left Digital Radiography Impressions 11/16/2024 8:47 AM EDT 1. Osteoarthritis of the left hand that is severe in the first carpometacarpal joint. No acute osseous or articular abnormality of the left hand or wrist. 2. Prepatellar soft tissue swelling consistent with contusion. No fracture of the left knee. 3. Moderate to severe osteoarthritis of the left patellofemoral joint. CRITICAL RESULT: No. COMMUNICATION: Per this written report. Drafted by Davin Mcdonough MD on 11/16/2024 8:42 AM Final report signed by Davin Mcdonough MD on 11/16/2024 8:47 AM Narrative 11/16/2024 8:47 AM EDT CLINICAL INDICATION: pain TECHNIQUE: XR KNEE LEFT 3 VIEWS, XR HAND LEFT 3+ VIEWS, XR WRIST LEFT 3+ VIEWS COMPARISON: August 25, 2013. FINDINGS: 3 views of the left hand and 3 views of the left wrist show osteoarthritis of interphalangeal joints. Severe osteoarthritis of the first carpometacarpal joint. Minimal degenerative changes of MCP joints. Coalition between the hamate and capitate. No fracture or erosive changes. No fracture. 3 views of the left knee show anterior knee soft tissue swelling. No effusion. Patellofemoral joint space narrowing and tricompartmental osteophyte formation. No fracture or bone destruction. Procedure Note Davin Mcdonough MD - 11/16/2024 CLINICAL INDICATION: pain TECHNIQUE: XR KNEE LEFT 3 VIEWS, XR HAND LEFT 3+ VIEWS, XR WRIST LEFT 3+ VIEWS COMPARISON: August 25, 2013. FINDINGS: 3 views of the left hand and 3 views of the left wrist show osteoarthritisof interphalangeal joints. Severe osteoarthritis of the firstcarpometacarpal joint. Minimal degenerative changes of MCP joints.Coalition between the hamate and capitate. No fracture or erosive changes.No fracture. 3 views of the left knee show anterior knee soft tissue swelling. Noeffusion. Patellofemoral joint space narrowing and tricompartmentalosteophyte formation. No fracture or bone destruction. IMPRESSION: 1.Osteoarthritis of the left hand that is severe in the firstcarpometacarpal joint. No acute osseous or articular abnormality of theleft hand or wrist. 2.Prepatellar soft tissue swelling consistent with contusion. No fractureof the left knee. 3.Moderate to severe osteoarthritis of the left patellofemoral joint. CRITICAL RESULT: No. COMMUNICATION: Per this written report. Drafted by Davin Mcdonough MD on 11/16/2024 8:42 AM Final report signed by aDvin Mcdonough MD on 11/16/2024 8:47 AM Torrie RAMOS IMG XR PROCEDURES Final Resul t * Multi Drug Resistance Test (11/16/2024 1:41 AM EDT) Culture No Multi Drug Resistant Organisms Isolated 11/18/2024 9:10 AM EDT [facility] Swab (Nares and Carole Rectal) Non-blood Collection / Unknown 11/16/2024 1:41 AM EDT 11/16/2024 7:14 AM EDT Narrative [facility] - 11/18/2024 9:10 AM EDT This test was developed and its performance characteristics determined by the [facility]. Although the media is FDA-approved, it is not FDA-approved for all specimen types submitted. The FDA has determined that such clearance or approval is not necessary. This test is used for surveillance purposes. It should not be regarded as investigational or for research. The [facility] is certified under the Clinical Laboratory Improvement Amendments of 1988 (CLIA-88) as qualified to perform high complexity clinical laboratory testing. Giovany Vance MD LAB MICROBIOLOGY - GENERAL O RDERABLES Final Result [facility] [address] [place] [address] * Urinalysis Microscopic Examination (11/16/2024 1:14 AM EDT) Urine Urine specimen obtained by clean catch procedure / Unknown Non-blood Collection / Unknown 11/16/2024 1:14 AM EDT 11/16/2024 1:21 AM EDT us Lona Ortiz MD LAB URINE ORDERABLES Final Result Performing Organization Address City/[facility]/ZIP Co de Phone Number [facility] [address] [place] [address] * (ABNORMAL) Urinalysis with reflex microscopic (Culture NOT Included) (11/16/2024 1:14 AM EDT) Color, Urine [place] LAB URINALYSIS - AUTOMATED METHOD 11/16/2024 1:54 AM EDT [facility] Clarity, Urine Clear LAB URINALYSIS - AUTOMATED METHOD 11/16/2024 1:54 AM EDT [facility] Spec [place], Urine >1.030(H) 1.005 - 1.030 LAB URINALYSIS - AUTOMATED METHOD 11/16/2024 1:54 AM EDT [facility] pH, Urine 6.0 5.0 - 8.0 LAB URINALYSIS - AUTOMATED METHOD 11/16/2024 1:54 AM EDT [facility] Protein, Urine Trace(A) Negative mg/dL LAB URINALYSIS - AUTOMATED METHOD 11/16/2024 1:54 AM EDT [facility] Glucose, Urine >=1000(A) Negative mg/dL LAB URINALYSIS - AUTOMATED METHOD 11/16/2024 1:54 AM EDT [facility] Ketones, Urine Negative Negative mg/dL LAB URINALYSIS - AUTOMATED METHOD 11/16/2024 1:54 AM EDT [facility] Blood, Urine Trace(A) Negative LAB URINALYSIS - AUTOMATED METHOD 11/16/2024 1:54 AM EDT [facility] Bilirubin, Urine Negative Negative LAB URINALYSIS - AUTOMATED METHOD 11/16/2024 1:54 AM EDT [facility] Urobilinogen, Urine 0.2 0.2 to 1.0 mg/dL LAB URINALYSIS - AUTOMATED METHOD 11/16/2024 1:54 AM EDT [facility] Leukocytes, Urine Moderate(A) Negative LAB URINALYSIS - AUTOMATED METHOD 11/16/2024 1:54 AM EDT [facility] Nitrite, Urine Positive(A) Negative LAB URINALYSIS - AUTOMATED METHOD 11/16/2024 1:54 AM EDT [facility] RBC, Urine 1 0 to 3 /HPF 11/16/2024 1:54 AM EDT [facility] Comment:This result was prev iously suppressed from the chart. WBC, Urine 21 - 50(A) 0 to 5 /HPF 11/16/2024 1:54 AM EDT [facility] Comment:This result was prev iously suppressed from the chart. Squamous Epithelial Cells 0 - 2 0 to 5 /HPF 11/16/2024 1:54 AM EDT [facility] Comment:This result was prev iously suppressed from the chart. Hyaline Casts 0 - 2 0 to 5 /LPF 11/16/2024 1:54 AM EDT [facility] Comment:This result was prev iously suppressed from the chart. Bacteria, Urine Present Negative 11/16/2024 1:54 AM EDT [facility] Comment:This result was prev iously suppressed from the chart. Urine Urine specimen obtained by clean catch procedure / Unknown Non-blood Collection / Unknown 11/16/2024 1:14 AM EDT 11/16/2024 1:21 AM EDT Narrative [facility] - 11/16/2024 1:54 AM EDT Urinalysis dipstick results may be inaccurate due to specimen color or an interfering substance in the specimen. Performed by manual method us Lona Ortiz MD LAB URINE ORDERABLES Final Result [facility] [address] [place] [address] * Drug Abuse Screen, Urine (11/16/2024 1:14 AM EDT) Amphetamine Screen Urine Negative Cutoff: 500 ng/mL 11/16/2024 1:42 AM EDT [facility] Benzodiazepines Screen Urine Negative Cutoff: 200 ng/mL 11/16/2024 1:42 AM EDT [facility] Cannabinoid Screen Urine Negative Cutoff: 50 ng/mL 11/16/2024 1:42 AM EDT [facility] Cocaine Screen Urine Negative Cutoff: 300 ng/mL 11/16/2024 1:42 AM EDT [facility] Barbiturate Screen Urine Negative Cutoff: 200 ng/mL 11/16/2024 1:42 AM EDT [facility] Opiate Screen Urine Negative Cutoff: 300 ng/mL 11/16/2024 1:42 AM EDT [facility] Methadone Screen Urine Negative Cutoff: 300 ng/mL 11/16/2024 1:42 AM EDT [facility] Buprenorphine Screen Urine Negative Cutoff: 10 ng/mL 11/16/2024 1:42 AM EDT [facility] Fentanyl Screen Urine Negative Cutoff: 1 ng/mL 11/16/2024 1:42 AM EDT [facility] Oxycodone Screen Urine Negative Cutoff: 100 ng/mL 11/16/2024 1:42 AM EDT [facility] Urine Urine specimen obtained by clean catch procedure / Unknown Non-blood Collection / Unknown 11/16/2024 1:14 AM EDT 11/16/2024 1:21 AM EDT Lona Ortiz MD LAB URINE ORDERABLES Final Result [facility] [address] [place] [address] * CT Venogram Head (11/15/2024 9:21 PM EDT) Anatomical Region Laterality Modality Head Computed Tomogra phy Impressions 11/15/2024 10:22 PM EDT Stable appearance of left parafalcine subdural hemorrhage at the vertex measuring up to 7 mm in this, and adjacent small amount of subarachnoid hemorrhage. Small subdural collection measuring 3.5 mm in thickness thickness, underlying left parietal bone flap from recent craniotomy, also unchanged. No new hemorrhages are identified. No midline shift or attenuation of basilar cisterns. No evidence of dural venous sinus or cortical vein thrombosis. CRITICAL RESULT: No. COMMUNICATION: Per this written report. Drafted by Abhilash Castorena MD on 11/15/2024 10:08 PM Final report signed by Abhilash Castorena MD on 11/15/2024 10:22 PM Narrative 11/15/2024 10:22 PM EDT CLINICAL INDICATION: SAH big 3 TECHNIQUE: Routine contiguous axial CT images of the head were obtained without contrast administration. Spiral axial CT images of the head were obtained with IV contrast administration during the venous phase. MIP images were created. A total of 100 mL of Omnipaque 350 were administered intravenously. Total DLP (Dose-Length Product): 1926.17 mGy.cm (accession [id number]), 1926.17 mGy.cm (accession [id number]). Please note: The reported value represents the total of one or more individual components during the CT acquisition on this date and at this time, and as such, the same value may appear in more than one CT report depending on the interpreting/reporting physicians. COMPARISON: Outside CT obtained at 1438 FINDINGS: CT HEAD: Stable appearance of left parafalcine subdural hemorrhage at the vertex measuring up to 7 mm in thickness (10/5), and adjacent small amount of subarachnoid hemorrhage. Small subdural collection measuring 3.5 mm in thickness (8/114), underlying left parietal bone flap from recent craniotomy, also unchanged. No other acute hemorrhages are appreciated. No evidence of acute large territory infarct. No midline shift, or attenuation of basilar cisterns. Remainder of the calvarium and skull base without acute findings. The mastoids, middle ear cavities, paranasal sinuses are aerated. Trace fluid in the right sphenoidal sinus, mucosal retention cyst within the posterior left sphenoidal sinus. Mucosal thickening within the maxillary sinuses. Postoperative changes of the scalp overlying the craniotomy, and trace amount of subcutaneous fluid overlying the bone flap. CTV HEAD: No appreciable contrast extravasation. There is normal enhancement of the superior sagittal, transverse and sigmoid sinuses with no filling defects to suggest thrombosis. The straight sinus, Vein of [place] and deep venous system are grossly normal. There is narrowing of the cortical vein passing under the craniotomy flap but appears to remain patent. No cortical vein thrombosis is present. Procedure Note Abhilash Castorena MD - 11/15/2024 CLINICAL INDICATION: SAH big 3 TECHNIQUE: Routine contiguous axial CT images of the head were obtained withoutcontrast administration. Spiral axial CT images of the head were obtained with IV contrastadministration during the venous phase. MIP images were created. A totalof 100 mL of Omnipaque 350 were administered intravenously. Total DLP (Dose-Length Product): 1926.17 mGy.cm (accession [id number]),1926.17 mGy.cm (accession [id number]). Please note: The reported valuerepresents the total of one or more individual components during the CTacquisition on this date and at this time, and as such, the same value mayappear in more than one CT report depending on the interpreting/reportingphysicians. COMPARISON: Outside CT obtained at 1438 FINDINGS: CT HEAD: Stable appearance of left parafalcine subdural hemorrhage at the vertexmeasuring up to 7 mm in thickness (10/5), and adjacent small amount ofsubarachnoid hemorrhage. Small subdural collection measuring 3.5 mm in thickness (8/114),underlying left parietal bone flap from recent craniotomy, alsounchanged. No other acute hemorrhages are appreciated. No evidence of acute large territory infarct. No midline shift, or attenuation of basilar cisterns. Remainder of the calvarium and skull base without acute findings. The mastoids, middle ear cavities, paranasal sinuses are aerated. Tracefluid in the right sphenoidal sinus, mucosal retention cyst within theposterior left sphenoidal sinus. Mucosal thickening within the maxillarysinuses. Postoperative changes of the scalp overlying the craniotomy, and traceamount of subcutaneous fluid overlying the bone flap. CTV HEAD: No appreciable contrast extravasation. There is normal enhancement of thesuperior sagittal, transverse and sigmoid sinuses with no filling defectsto suggest thrombosis. The straight sinus, Vein of [place] and deep venoussystem are grossly normal. There is narrowing of the cortical vein passingunder the craniotomy flap but appears to remain patent. No cortical veinthrombosis is present. IMPRESSION: Stable appearance of left parafalcine subdural hemorrhage at the vertexmeasuring up to 7 mm in this, and adjacent small amount of subarachnoidhemorrhage. Small subdural collection measuring 3.5 mm in thicknessthickness, underlying left parietal bone flap from recent craniotomy, alsounchanged. No new hemorrhages are identified. No midline shift or attenuation ofbasilar cisterns. No evidence of dural venous sinus or cortical vein thrombosis. CRITICAL RESULT: No. COMMUNICATION: Per this written report. Drafted by Abhilash Castorena MD on 11/15/2024 10:08 PM Final report signed by Abhilash Castorena MD on 11/15/2024 10:22 PM us Lona Ortiz MD IMG CT PROCEDURES Final Res ult * CT Head wo IV Contrast (11/15/2024 9:21 PM EDT) Anatomical Region Laterality Modality Head Computed Tomogra phy Impressions 11/15/2024 10:22 PM EDT Stable appearance of left parafalcine subdural hemorrhage at the vertex measuring up to 7 mm in this, and adjacent small amount of subarachnoid hemorrhage. Small subdural collection measuring 3.5 mm in thickness thickness, underlying left parietal bone flap from recent craniotomy, also unchanged. No new hemorrhages are identified. No midline shift or attenuation of basilar cisterns. No evidence of dural venous sinus or cortical vein thrombosis. CRITICAL RESULT: No. COMMUNICATION: Per this written report. Drafted by bAhilash Castorena MD on 11/15/2024 10:08 PM Final report signed by Abhilash Castorena MD on 11/15/2024 10:22 PM Narrative 11/15/2024 10:22 PM EDT CLINICAL INDICATION: SAH big 3 TECHNIQUE: Routine contiguous axial CT images of the head were obtained without contrast administration. Spiral axial CT images of the head were obtained with IV contrast administration during the venous phase. MIP images were created. A total of 100 mL of Omnipaque 350 were administered intravenously. Total DLP (Dose-Length Product): 1926.17 mGy.cm (accession [id number]), 1926.17 mGy.cm (accession [id number]). Please note: The reported value represents the total of one or more individual components during the CT acquisition on this date and at this time, and as such, the same value may appear in more than one CT report depending on the interpreting/reporting physicians. COMPARISON: Outside CT obtained at 1438 FINDINGS: CT HEAD: Stable appearance of left parafalcine subdural hemorrhage at the vertex measuring up to 7 mm in thickness (10/5), and adjacent small amount of subarachnoid hemorrhage. Small subdural collection measuring 3.5 mm in thickness (8/114), underlying left parietal bone flap from recent craniotomy, also unchanged. No other acute hemorrhages are appreciated. No evidence of acute large territory infarct. No midline shift, or attenuation of basilar cisterns. Remainder of the calvarium and skull base without acute findings. The mastoids, middle ear cavities, paranasal sinuses are aerated. Trace fluid in the right sphenoidal sinus, mucosal retention cyst within the posterior left sphenoidal sinus. Mucosal thickening within the maxillary sinuses. Postoperative changes of the scalp overlying the craniotomy, and trace amount of subcutaneous fluid overlying the bone flap. CTV HEAD: No appreciable contrast extravasation. There is normal enhancement of the superior sagittal, transverse and sigmoid sinuses with no filling defects to suggest thrombosis. The straight sinus, Vein of [place] and deep venous system are grossly normal. There is narrowing of the cortical vein passing under the craniotomy flap but appears to remain patent. No cortical vein thrombosis is present. Procedure Note Abhilash Castorena MD - 11/15/2024 CLINICAL INDICATION: SAH big 3 TECHNIQUE: Routine contiguous axial CT images of the head were obtained withoutcontrast administration. Spiral axial CT images of the head were obtained with IV contrastadministration during the venous phase. MIP images were created. A totalof 100 mL of Omnipaque 350 were administered intravenously. Total DLP (Dose-Length Product): 1926.17 mGy.cm (accession [id number]),1926.17 mGy.cm (accession [id number]). Please note: The reported valuerepresents the total of one or more individual components during the CTacquisition on this date and at this time, and as such, the same value mayappear in more than one CT report depending on the interpreting/reportingphysicians. COMPARISON: Outside CT obtained at 1438 FINDINGS: CT HEAD: Stable appearance of left parafalcine subdural hemorrhage at the vertexmeasuring up to 7 mm in thickness (10/5), and adjacent small amount ofsubarachnoid hemorrhage. Small subdural collection measuring 3.5 mm in thickness (8/114),underlying left parietal bone flap from recent craniotomy, alsounchanged. No other acute hemorrhages are appreciated. No evidence of acute large territory infarct. No midline shift, or attenuation of basilar cisterns. Remainder of the calvarium and skull base without acute findings. The mastoids, middle ear cavities, paranasal sinuses are aerated. Tracefluid in the right sphenoidal sinus, mucosal retention cyst within theposterior left sphenoidal sinus. Mucosal thickening within the maxillarysinuses. Postoperative changes of the scalp overlying the craniotomy, and traceamount of subcutaneous fluid overlying the bone flap. CTV HEAD: No appreciable contrast extravasation. There is normal enhancement of thesuperior sagittal, transverse and sigmoid sinuses with no filling defectsto suggest thrombosis. The straight sinus, Vein of [place] and deep venoussystem are grossly normal. There is narrowing of the cortical vein passingunder the craniotomy flap but appears to remain patent. No cortical veinthrombosis is present. IMPRESSION: Stable appearance of left parafalcine subdural hemorrhage at the vertexmeasuring up to 7 mm in this, and adjacent small amount of subarachnoidhemorrhage. Small subdural collection measuring 3.5 mm in thicknessthickness, underlying left parietal bone flap from recent craniotomy, alsounchanged. No new hemorrhages are identified. No midline shift or attenuation ofbasilar cisterns. No evidence of dural venous sinus or cortical vein thrombosis. CRITICAL RESULT: No. COMMUNICATION: Per this written report. Drafted by Abhilash Castorena MD on 11/15/2024 10:08 PM Final report signed by Abhilash Castorena MD on 11/15/2024 10:22 PM us Lona Ortiz MD IMG CT PROCEDURES Final Res ult * (ABNORMAL) Trauma shock panel blood gas (11/15/2024 8:06 PM EDT) pH, Venous 7.39 7.32 - 7.43 LAB HEMATOLOGY METHOD 11/15/2024 8:21 PM EDT [facility] Bicarbonate, Calculated, Venous 29(H) 22 - 26 mmol/L LAB HEMATOLOGY METHOD 11/15/2024 8:21 PM EDT [facility] Base Excess, Venous 3.2(H) -2.0 - 3.0 mmol/L LAB HEMATOLOGY METHOD 11/15/2024 8:21 PM EDT [facility] Lactate, Venous, Whole Blood 1.8 0.5 - 2.2 mmol/L LAB HEMATOLOGY METHOD 11/15/2024 8:21 PM EDT [facility] Blood Venous blood specimen / Unknown Venipuncture / Unknown 11/15/2024 8:06 PM EDT 11/15/2024 8:20 PM EDT Lona Ortiz MD LAB BLOOD ORDERABLES Final Result [facility] [address] [place] [address] * Type and Screen (11/15/2024 6:51 PM EDT) ABO/Rh O Positive 11/15/2024 5:50 PM EDT BLOOD BANK Antibody Screen Negative 11/15/2024 5:50 PM EDT BLOOD BANK Specimen Expiration 11/18/2024 23:59 11/15/2024 5:50 PM EDT BLOOD BANK Blood Venous blood specimen / Unknown Venipuncture / Unknown 11/15/2024 6:51 PM EDT 11/15/2024 7:03 PM EDT us Lona Ortiz MD LAB BLOOD BANK TEST ORDERAB LES Final Result Performing Organization Address [facility] Co de Phone Number BLOOD BANK [address] [place] [address], [place] * Test Qualitative Plasma (11/15/2024 6:51 PM EDT) Test Negative Negative 11/15/2024 7:47 PM EDT [facility] Blood Venous blood specimen / Unknown Venipuncture / Unknown 11/15/2024 6:51 PM EDT 11/15/2024 6:56 PM EDT Narrative [facility] - 11/15/2024 7:47 PM EDT Reference Range: Males and non- females: Negative. us Lona Ortiz MD LAB BLOOD ORDERABLES Final Result Performing Organization Address City/[facility]/ZIP Co de Phone Number [facility] [address] [place] [address] * Ethyl Alcohol Plasma (11/15/2024 6:51 PM EDT) Ethanol Plasma <10 <10 mg/dL 11/15/2024 7:19 PM EDT [facility] Blood Venous blood specimen / Unknown Venipuncture / Unknown 11/15/2024 6:51 PM EDT 11/15/2024 6:56 PM EDT Narrative [facility] - 11/15/2024 7:19 PM EDT Enzymatic Assay: Performed on Nayeli Linnette. Lona Ortiz MD LAB BLOOD ORDERABLES Final Result Performing Organization Address [facility] Co de Phone Number [facility] [address] [place] [address] * APTT (PTT) (11/15/2024 6:51 PM EDT) aPTT 28 25 - 35 sec 11/15/2024 7:14 PM EDT [facility] Blood Venous blood specimen / Unknown Venipuncture / Unknown 11/15/2024 6:51 PM EDT 11/15/2024 6:56 PM EDT Lona Ortiz MD LAB BLOOD ORDERABLES Final Result Performing Organization Address City/[facility]/ZIP Co de Phone Number [facility] [address] [place] [address] * (ABNORMAL) PT-INR (11/15/2024 6:51 PM EDT) Prothrombin Time 19.5(H) 12.0 - 14.3 sec 11/15/2024 7:14 PM EDT [facility] INR 1.7(H) 0.9 - 1.1 11/15/2024 7:14 PM EDT [facility] Blood Venous blood specimen / Unknown Venipuncture / Unknown 11/15/2024 6:51 PM EDT 11/15/2024 6:56 PM EDT Narrative [facility] - 11/15/2024 7:14 PM EDT OPTIMAL INR RANGES FOR PATIENT ON ORAL ANTICOAGULANT THERAPY Prevention of venous thromboembolism INR 2.0 to 3.0 In patients with heart disease: Atrial fibrillation INR 2.0 to 3.0 Valvular heart disease INR 2.0 to 3.0 Tissue heart valves INR 2.0 to 3.0 Mechanical prosthetic valves INR 2.5 to 3.5 Prevention of recurrent [place] INR 2.5 to 3.5 us Lona Ortiz MD LAB BLOOD ORDERABLES Final Result [facility] [address] [place] [address] * (ABNORMAL) CBC w/o diff (11/15/2024 6:51 PM EDT) WBC Count 2.96(L) 3.70 - 10.30 10*3/uL LAB HEMATOLOGY METHOD 11/15/2024 8:05 PM EDT [facility] RBC Count 2.35(L) 3.90 - 5.20 10*6/uL LAB HEMATOLOGY METHOD 11/15/2024 8:05 PM EDT [facility] HGB 7.2(L) 11.2 - 15.7 g/dL LAB HEMATOLOGY METHOD 11/15/2024 8:05 PM EDT [facility] HCT 24.0(L) 34.0 - 45.0 % LAB HEMATOLOGY METHOD 11/15/2024 8:05 PM EDT [facility] Platelet Count 158 155 - 369 10*3/uL LAB HEMATOLOGY METHOD 11/15/2024 8:05 PM EDT [facility] MCV 102(H) 79 - 98 fL LAB HEMATOLOGY METHOD 11/15/2024 8:05 PM EDT [facility] MCH 30.6 26.0 - 32.0 pg LAB HEMATOLOGY METHOD 11/15/2024 8:05 PM EDT [facility] MCHC 30.0(L) 30.7 - 35.5 g/dL LAB HEMATOLOGY METHOD 11/15/2024 8:05 PM EDT [facility] RDW 17.7(H) 11.5 - 14.5 % LAB HEMATOLOGY METHOD 11/15/2024 8:05 PM EDT [facility] MPV 10.2 8.8 - 12.5 fL LAB HEMATOLOGY METHOD 11/15/2024 8:05 PM EDT [facility] nRBC 0.0 <=0.0 per 100 WBCs LAB HEMATOLOGY METHOD 11/15/2024 8:05 PM EDT [facility] Blood Venous blood specimen / Unknown Venipuncture / Unknown 11/15/2024 6:51 PM EDT 11/15/2024 6:56 PM EDT us Lona Ortiz MD LAB BLOOD ORDERABLES Final Result [facility] [address] [place] [address] * (ABNORMAL) CMP (11/15/2024 6:51 PM EDT) Glucose, Plasma 107(H) 74 - 99 mg/dL 11/15/2024 7:47 PM EDT [facility] BUN, Plasma 22 8 - 23 mg/dL 11/15/2024 7:47 PM EDT [facility] Creatinine, Plasma 0.81 0.60 - 1.10 mg/dL 11/15/2024 7:47 PM EDT [facility] BUN/Creatinine Ratio 27 11/15/2024 7:47 PM EDT [facility] Sodium, Plasma 141 136 - 145 mmol/L 11/15/2024 7:47 PM EDT [facility] Potassium, Plasma 3.7 3.6 - 4.9 mmol/L 11/15/2024 7:47 PM EDT [facility] Chloride, Plasma 102 97 - 107 mmol/L 11/15/2024 7:47 PM EDT [facility] CO2, Plasma 26 22 - 29 mmol/L 11/15/2024 7:47 PM EDT [facility] Anion Gap 13 6 - 16 mmol/L 11/15/2024 7:47 PM EDT [facility] Total Calcium, Plasma 8.9 8.9 - 10.2 mg/dL 11/15/2024 7:47 PM EDT [facility] Total Protein 6.4 6.3 - 7.9 g/dL 11/15/2024 7:47 PM EDT [facility] Albumin, Plasma 3.7 3.5 - 5.2 g/dL 11/15/2024 7:47 PM EDT [facility] AST, Plasma 12 10 - 35 U/L 11/15/2024 7:47 PM EDT [facility] ALT, Plasma 22 10 - 35 U/L 11/15/2024 7:47 PM EDT [facility] Alkaline Phosphatase, Plasma 108 46 - 142 U/L 11/15/2024 7:47 PM EDT [facility] Total Bilirubin, Plasma 0.7 0.2 - 1.1 mg/dL 11/15/2024 7:47 PM EDT [facility] eGFRcr 81.7 mL/min/1.7 3m*2 11/15/2024 7:47 PM EDT [facility] Comment:Reported eGFRcr in m L/min/1.73m2 is based the CKD-EPI 2020 equation that does not use a race coefficient. Blood Venous blood specimen / Unknown Venipuncture / Unknown 11/15/2024 6:51 PM EDT 11/15/2024 6:56 PM EDT Lona Ortiz MD LAB BLOOD ORDERABLES Final Result Performing Organization Address [facility]/ZIP Co de Phone Number [facility] [address] [place] [address] * Gold Top (11/15/2024 6:41 PM EDT) Extra Hold for add-ons 11/15/2024 9:01 PM EDT [facility] Comment:Auto resulted. Blood Venous blood specimen / Unknown 11/15/2024 6:41 PM EDT 11/15/2024 6:56 PM EDT us Lona Ortiz MD LAB BLOOD ORDERABLES Final Result Performing Organization Address [facility]/ZIP Co de Phone Number [facility] [address] [place] [address] * (ABNORMAL) POCT glucose meter (11/15/2024 4:49 PM EDT) POCT Glucose 135(H) 74 - 99 mg/dL 11/15/2024 4:50 PM EDT [facility] Comment:Accuracy [...] to the main labortory for testing. Comment 11/15/2024 4:50 PM EDT [facility] Medical Lab Director ID Lynda Murphy 4:50 PM EDT [facility] Device ID [id number] 11/15/2024 4:50 PM EDT [facility] Specimen Type POC Capillary 11/15/2024 4:50 PM EDT [facility] Blood Capillary blood specimen / Unknown 11/15/2024 4:49 PM EDT 11/15/2024 4:50 PM EDT us Generic Provider Poct LAB POINT OF CARE TEST DOCKED DEVICE UNSOLICITED RESULTS Final Result [facility] [address] [place], [place] [id number] documented in this encounter Visit Diagnoses Diagnosis Fall- Primary Unspecified fall SAH (subarachnoid hemorrhage) ([facility]/HCC) Subarachnoid hemorrhage SDH (subdural hematoma) ([facility]) Subdural hemorrhage Nondisplaced fracture of distal phalanx of left thumb, initial encounter for closed fracture Acute cystitis without hematuria SAH (subarachnoid hemorrhage) (CMS/HCC) Subarachnoid hemorrhage Subdural hemorrhage ([facility]/HCC) Subdural hemorrhage Morbid obesity with BMI of 40.0-44.9, adult ([facility]) A-fib ([facility]) Atrial fibrillation Concussion Unspecified concussion Anemia Unspecified anemia UTI (urinary tract infection) Urinary tract infection, site not specified Hyperglycemia due to diabetes mellitus ([facility]) Brain mass Unspecified condition of brain documented in this encounter Admitting Diagnoses Diagnosis SAH (subarachnoid hemorrhage) (CMS/HCC) Subarachnoid hemorrhage documented in this encounter Administered Medications Inactive Administered Medications - up to 3 most recent administrations Medication Order MAR Action Action Date Dose Rate Site acetaminophen (Tylenol) tablet 650 mg 650 mg, Oral, Every 6 hours scheduled, First dose on Thu11/16/24 at 0715, Until Discontinued, Routine Given 11/16/2024 11:41 AM EDT 650 mg Given 11/16/2024 7:33 AM EDT 650 mg dextrose 5 % and lactated Ringer's infusion 100 mL/hr, Intravenous, Continuous, Starting on Thu11/16/24 at 0120, Until Thu11/16/24 at 1023, Routine New Bag 11/16/2024 1:38 AM EDT 100 mL/hr 100 mL/hr four factor human prothrombin complex Concentrate (Kcentra) 4,930 Units, empty bag 1 each infusion 4,930 Units, Intravenous, Once, 1 dose, On Thu11/15/24 at 1925, Administer over 24 Minutes, STAT New Bag 11/15/2024 7:44 PM EDT 4,930 Units 500 mL/hr HYDROmorphone (Dilaudid) injection 0.5 mg 0.5 mg, Intravenous, Once, 1 dose, On Thu11/15/24 at 2030, STAT Given 11/15/2024 9:02 PM EDT 0.5 mg iohexol (OMNIPaque) 350 MG/ML injection 100 mL 100 mL, Intravenous, Once in imaging, 1 dose, Starting on Thu11/15/24 at 2122, Until Thu11/15/24 at 2122, Routine, Imaging Protocol Orders Given 11/15/2024 9:22 PM EDT 100 mL levETIRAcetam (Keppra) injection 2,000 mg 2,000 mg, Intravenous, Once, 1 dose, On Thu11/15/24 at 1920, STAT Given 11/15/2024 7:34 PM EDT 2,000 mg nitrofurantoin (macrocrystal-monohydrate) (Macrobid) capsule 100 mg 100 mg, Oral, 2 times daily, 10 doses, First dose on Thu11/16/24 at 0900, Last dose on Thu11/20/24 at 2100, Routine Given 11/16/2024 9:38 AM EDT 100 mg ondansetron (Zofran) injection 4 mg 4 mg, Intravenous, Every 6 hours PRN, Starting on Thu11/16/24 at 0709, Until Thu11/16/24 at 1739, Routine, nausea, vomiting ondansetron ODT (Zofran-ODT) disintegrating tablet 4 mg 4 mg, Oral, Every 6 hours PRN, Starting on Thu11/16/24 at 0709, Until Thu11/16/24 at 1739, Routine, nausea, vomiting Given 11/16/2024 7:36 AM EDT 4 mg oxyCODONE (Roxicodone) immediate release tablet 10 mg 10 mg, Oral, Every 4 hours PRN, Starting on Thu11/16/24 at 0710, Until Thu11/16/24 at 1739, Routine, severe pain oxyCODONE (Roxicodone) immediate release tablet 5 mg 5 mg, Oral, Every 4 hours PRN, Starting on Thu11/16/24 at 0710, Until Thu11/16/24 at 1739, Routine, moderate pain Given 11/16/2024 11:41 AM EDT 5 mg Given 11/16/2024 7:33 AM EDT 5 mg sodium chloride 0.9 % flush 10 mL 10 mL, Intravenous, Every 12 hours, First dose on Thu11/16/24 at 0120, Until Discontinued, Routine Given 11/16/2024 1:31 AM EDT 10 mL sodium chloride 0.9 % flush 10 mL 10 mL, Intravenous, As needed, Starting on Thu11/16/24 at 0118, Until Thu11/16/24 at 1739, Routine, line care documented in this encounter Active and Recently Administered Medications Times are shown in EDT. Scheduled Medication Order 11/14/2024 11/15/2024 11/16/2024 acetaminophen (Tylenol) tablet 650 mg 650 mg, Oral, Every 6 hours scheduled, First dose on Thu11/16/24 at 0715, Until Discontinued, Routine 0733 (Given - Provid er: Marcia Pelletier)1141 (Given - Provider: Marcia Pelletier) four factor human prothrombin complex Concentrate (Kcentra) 4,930 Units, empty bag 1 each infusion (COMPLETED) 4,930 Units, Intravenous, Once, 1 dose, On Thu11/15/24 at 1925, Administer over 24 Minutes, STAT 194 (New Bag - Provider: Cynthia Juan, VeirtoD)2009 (Stopped - Provider: Clare Canada) HYDROmorphone (Dilaudid) injection 0.5 mg (COMPLETED) 0.5 mg, Intravenous, Once, 1 dose, On Thu11/15/24 at 2030, STAT 210 (Given - Provider: Clare Canada) iohexol (OMNIPaque) 350 MG/ML injection 100 mL (COMPLETED) 100 mL, Intravenous, Once in imaging, 1 dose, Starting on Thu11/15/24 at 2122, Until Thu11/15/24 at 212, Routine, Imaging Protocol Orders 2121 (Given - Provider: Jane Burnett) levETIRAcetam (Keppra) injection 2,000 mg (COMPLETED) 2,000 mg, Intravenous, Once, 1 dose, On Thu11/15/24 at 1920, STAT 193 (Given - Provider: Clare Canada) nitrofurantoin (macrocrystal-monohydrate) (Macrobid) capsule 100 mg 100 mg, Oral, 2 times daily, 10 doses, First dose on Thu11/16/24 at 0900, Last dose on Thu11/20/24 at 2100, Routine 0938 (Given - Provid er: Marcia Pelletier) sodium chloride 0.9 % flush 10 mL(Linked Group 1) 10 mL, Intravenous, Every 12 hours, First dose on Thu11/16/24 at 0120, Until Discontinued, Routine 0131 (Given - Provid er: Clare Canada)1238 (Canceled Entry - Provider: Marcia Pelletier) Continuous Medication Order 11/14/2024 11/15/2024 11/16/2024 dextrose 5 % and lactated Ringer's infusion (CANCELED) 100 mL/hr, Intravenous, Continuous, Starting on Thu11/16/24 at 0120, Until Thu11/16/24 at 1023, Routine 0138 (New Bag - Prov ider: Clare Canada)0920 (Stopped - Provider: Marcia Pelletier) PRN Medication Order 11/14/2024 11/15/2024 11/16/2024 ondansetron (Zofran) injection 4 mg(Linked Group 2) 4 mg, Intravenous, Every 6 hours PRN, Starting on Thu11/16/24 at 0709, Until Thu11/16/24 at 1739, Routine, nausea, vomiting 0736 (See Alternativ e - Provider: Marcia Pelletier) ondansetron ODT (Zofran-ODT) disintegrating tablet 4 mg(Linked Group 2) 4 mg, Oral, Every 6 hours PRN, Starting on Thu11/16/24 at 0709, Until Thu11/16/24 at 1739, Routine, nausea, vomiting 0736 (Given - Provid er: Marcia Pelletier) oxyCODONE (Roxicodone) immediate release tablet 10 mg(Linked Group 3) 10 mg, Oral, Every 4 hours PRN, Starting on Thu11/16/24 at 0710, Until Thu11/16/24 at 1739, Routine, severe pain 0733 (See Alternativ e - Provider: Marcia Pelletier)1141 (See Alternative - Provider: Marcia Pelletier) oxyCODONE (Roxicodone) immediate release tablet 5 mg(Linked Group 3) 5 mg, Oral, Every 4 hours PRN, Starting on Thu11/16/24 at 0710, Until Thu11/16/24 at 1739, Routine, moderate pain 0733 (Given - Provid er: Marcia Pelletier)1141 (Given - Provider: Marcia Pelletier) sodium chloride 0.9 % flush 10 mL(Linked Group 1) 10 mL, Intravenous, As needed, Starting on Thu11/16/24 at 0118, Until Thu11/16/24 at 1739, Routine, line care Linked Groups Order Group 1: Insert peripheral IV (COMPLETED) Once, On Thu11/16/24 at 0119, For 1 occurrence And Saline lock IV (COMPLETED) Once, On Thu11/16/24 at 0119, For 1 occurrence And sodium chloride 0.9 % flush 10 mLJump to med 10 mL, Intravenous, Every 12 hours, First dose on Thu11/16/24 at 0120, Until Discontinued, Routine And sodium chloride 0.9 % flush 10 mLJump to med 10 mL, Intravenous, As needed, Starting on Thu11/16/24 at 0118, Until Thu11/16/24 at 1739, Routine, line care Group 2: ondansetron (Zofran) injection 4 mgJump to med 4 mg, Intravenous, Every 6 hours PRN, Starting on Thu11/16/24 at 0709, Until Thu11/16/24 at 1739, Routine, nausea, vomiting Or ondansetron ODT (Zofran-ODT) disintegrating tablet 4 mgJump to med 4 mg, Oral, Every 6 hours PRN, Starting on Thu11/16/24 at 0709, Until Thu11/16/24 at 1739, Routine, nausea, vomiting Group 3: oxyCODONE (Roxicodone) immediate release tablet 5 mgJump to med 5 mg, Oral, Every 4 hours PRN, Starting on Thu11/16/24 at 0710, Until Thu11/16/24 at 1739, Routine, moderate pain Or oxyCODONE (Roxicodone) immediate release tablet 10 mgJump to med 10 mg, Oral, Every 4 hours PRN, Starting on Thu11/16/24 at 0710, Until Thu11/16/24 at 1739, Routine, severe pain documented in this encounter Additional Health Concerns Infection Onset Date Last Indicated Resolved Time 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, [employer] 10/26/2024 10/31/2024 Assessment Noted Time PHQ-9 Depression Total Score: 0 09/01/19 3:26 PM EDT A fall risk assessment has been complete d for the patient 11/10/2024 2:43 PM EDT A Body Mass Index follow-up plan has been documented for the patient 11/08/2024 5:14 PM EDT documented as of this encounter Care Teams Frame Wirer Relationship Specialty Start Date End Date Laurie Gutierrez MD [address] [place] [address] PCP - General 12/09/23 Joshua Martínez MD [address] [place] [address] [phone] Consulting Physician Radiation Oncology 09/19/24 documented as of this encounter
--- OUTSIDE RECORDS SUMMARY | 2024-11-19 00:35 | XMS_ITS | Encounter Summary ---
Author Organization Healthcare Address [address] [place] [address] Care Team Providers Care Cloth Spreader Screen Printing Name Role Phone Laurie Gutierrez MD Primary Care Provider [phone] Joshua Martínez MD Unavailable Paradise Pacheco RN Unavailable Unavailab le Reason for Referral * Consultation (Routine) - Authorized Specialty Diagnoses / Procedures Referred By Mackenzie t Referred To Contact Family Medicine Diagnoses Type 2 diabetes mellitus with diabetic neuropathy, unspecified whether emt intermediate insulin use (CMS/HCC) Alin Ivey MD [address] [place] [address] Phone: tel: fax: Referral ID Status Reason Start Date Expiration Date V isits Requested Visits Authorized [id number] Authorized 11/22/2024 05/24/2026 1 1 Reason for Visit * Reason Comments Rapid Heart Rate * Auth/Cert (Routine) Specialty Diagnoses / Procedures Referred By Mackenzie t Referred To Contact Diagnoses Atrial fibrillation with rapid ventricular response (CMS/HCC) afib rvr; hx head bleed from fall. Alin Ivey MD [address] [place] [address] Phone: tel: fax: [facility] Emergency Department [address] [place] [address] Phone: tel: Referral ID Status Reason Start Date Expiration Date Visits Re quested Visits Authorized [id number] 1 1 Encounter Details Date Type Department Care Team (Latest Contact Info) Description 11/19/2024 12:35 AM EDT - 11/22/2024 4:58 PM EDT Hospital Encounter [facility] Inpatient [address] [place] [address] Jose David Topete MD [address] [place] [address] Alin Ivey MD [address] [place] [address] Atrial fibrillation with rapid ventricular response (CMS/HCC) (Primary Dx); Small cell carcinoma of lung, unspecified laterality, unspecified part of lung; Type 2 diabetes mellitus with diabetic neuropathy, unspecified whether care home insulin use (CMS/HCC) Discharge Disposition: Home-Health Care [facility] 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 Tobacco Use Types Packs/Day Years [...] afraid of your partner or ex-partner? No 12/16/2024 Within the last year, have y ou been humiliated or emotionally abused in other ways by your partner or ex-partner? No Within the last year, have y ou been kicked, hit, slapped, or otherwise physically hurt by your partner or ex-partner? No 12/16/2024 Within the last year, have y ou been raped or forced to have any kind of sexual activity by your partner or ex-partner? No 12/16/2024 AUDIT-C Answer Date Recorded Q1: How often do you have a drink containing alcohol? Never 11/29/2024 Q2: How many drinks containi ng alcohol do you have on a typical day when you are drinking? Patient does not drink Q3: How often do you have si x or more drinks on one occasion? Never 11/29/2024 Overall Financial Resource Strain (CARDIA) Answe r Date Recorded How hard is it for you to pa y for the very basics like food, housing, medical care, and heating? Somewhat hard 10/26/2024 Hunger Vital Sign Answer Date Recorded Within the past 12 months, y ou worried that your food would run out before you got the money to buy more. Never true 12/17/19 25 Within the past 12 months, t he food you bought just didn't last and you didn't have money to get more. Never true 12/16/2024 PRAPARE - Transportation Answer Date Re corded In the past 12 months, has l ack of transportation kept you from medical appointments or from getting medications? No 05/2024 In the past 12 months, has l ack of transportation kept you from meetings, work, or from getting things needed for daily living? No 12/16/2024 Housing Stability Vital Sign Answer Gregor e Recorded In the last 12 months, was t here a time when you were not able to pay the mortgage or rent on time? No 12/16/2024 In the past 12 months, how m any times have you moved where you were living? 1 12/16/2024 At any time in the past 12 m [facility], were you homeless or living in a [facility] (including now)? No 12/16/2024 CAGE ASSESSMENT Answer Date Recorded Cage unable to access Not on file 12/02/2024 Cage max number of drinks Not on file 2024 Cage Beverages a week Not on file 12/02/2024 Have you ever felt you should CUT down on your d rinking? 0 12/02/2024 Have you been ANNOYED by people criticizing your drinking? 0 12/02/2024 Have you felt GUILTY about your drinking? 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 0 12/02/2024 CAGE Questionnaire Score 0 025 Utilities Answer Date Recorded In the past 12 months has th e electric, gas, oil, or water company threatened to shut off services in your home? No 12/16/2024 Comments No Sex and Gender Information Value [...] Score Answer Date of Assessment Author 0 11/29/2024 11:06 AM EDT Kasandra Riley * Question Answer Date of Assessment Author Q1: How often do you have a drink containing alcohol? Never 11/29/2024 11:06 AM EDT Kasandra Riley Q2: How many drinks containing alcohol do you have on a typical day when you are drinking? Patient does not drink 11/29/2024 11:06 AM EDT Kasandra Riley Q3: How often do you have six or more drinks on one occasion? Never 11/29/2024 11:06 AM EDT Kasandra Riley * Calculated C-SSRS Risk Score (Lifetime/Recent) Answer Date of Assessment Author No Risk Indicated 12/20/2024 7:00 AM EDT Daphnie Cerda RN * Question Answer Date of Assessment Author 1. Wish to be (Past 1 Month) No 025 7:00 AM Daphnie Moffett RN 2. Non-Specific Active Suici radha Thoughts (Past 1 Month) No 12/20/2024 7:00 AM EDT Diana Perez RN 6. Suicidal Behavior (Lifetime) No 7:00 AM Daphnie Moffett RN documented as of this encounter Discharge [...] 1 tablet by mouth nightly. nystatin (Mycostatin) 292700 UNIT/GM powder Apply on bottom 2 times [...] nausea or vomiting. 30 tablet 3 11/08/2024 rivaroxaban (Xarelto) 20 MG tablet Take 1 tablet by mouth 1 time each day with dinner. Take with food. SITagliptin (Januvia) 50 MG tablet Take 1 [...] as needed for indigestion or heartburn. 5 estradiol (Estrace) 0.1 MG/GM vaginal cream Insert 2 g into the vagina daily. 5 lidocaine (Xylocaine) 5 % ointment Apply [...] tablet Take 2 tablets by mouth nightly. metoprolol tartrate (Lopressor) 50 MG tablet Take 1 tablet by mouth 2 times a day. 60 tablet 11/22/2024 mupirocin (Bactroban) 2 % ointment Apply on head 2 times a day 22 g 11/08/2024 ondansetron (Zofran) 8 MG tabletIndication s:Extensive stage primary small cell carcinoma of lung Take 1 tablet by mouth 2 times a day. Take on Day 4 of cycle and then take PRN 30 tablet 5 11/08/2024 Probiotic, Lactobacillus, capsule Take 1 capsule by mouth daily. 30 capsule 1 11/08/2024 5 rOPINIRole (Requip) 1 MG tablet Take 1 tablet by mouth 2 times a day. documented as of this encounter Miscellaneous Notes * Addendum Note - Js Diez - 11/22/2024 4:58 PM EDTEncounter addended by: Js Diez on: 12/06/2024 8:57 AM Actions taken: Utilization Review data saved * Addendum Note - Lia Damon RN - 11/22/2024 4:58 PM EDTEncounter addended by: Lia Damon RN on: 12/20/2024 3:54 PM Actions taken: Flowsheet accepted, Utilization Review data saved * Luis Angel Porter - 11/22/2024 4:27 PM EDT Images from the original note were not included. 90010 Living with Lung Cancer When living with [...] you're not sure what to eat. This dairy nutrition consultant can teach you tips on how to [...] cancer, contact the following: ?? Lung Cancer [place] at www.lungcanceralliance.org or 226-902-1808 ?? [employer] at www.cancer.org or 492-772-6467 ?? [employer] Lung Association at lung.org or 426-452-2291 ?? National Cancer [place] at www.cancer.gov or 869-462-7557 Last Reviewed Date: 2022 00:00:00 ?? [employer]. All rights reserved. This information is not intended as a substitute for professional medical care. Always follow your healthcare professional's instructions. * Progress Notes - Talisha Mcnamara RN - 11/22/2024 1:28 PM EDT Case Management Discharge Note Teresa Urbina 63 y.o. female CSN: [id number] Admission: 11/19/2024 12:35 AM Primary Problem: Atrial fibrillation with rapid ventricular response (CMS/HCC) Primary Residential Driver: Primary Caregiver: Self Assistance Available at Discharge: Current Outpatient/Agency/Support Group: infusion therapy, outpatient Availability of Care Givers (#Hours): 10-14 hours Family/Residential Driver(s) Willingness Assessed to care for patient at home: Yes Family/Residential Driver(s) Readiness Assessed to care for patient at home: Yes Housing Circumstances-Z Codes: Housing Circumstances (select all that apply): Low Income (101-300% Federal Poverty Guidlines) - Z596 Patient Referred to Financial or Community Resources: Discharge Facility/Level of Care Needs: Discharge Facility/Level of Care Needs: 5-Qnut-Dvyn[facility] Care [facility] Patient's Choice of Community Agency(s): Patient's Choice of Community Agency(s): [facility] Patient/Family Anticipated Services at Transition: Patient/Family Anticipated Services at Transition: education services, home health care, outpatientcare DME/Equipment Needed after Discharge: Equipment Currently Used at Home: walker, rolling, wheelchair, manual, commode chair Equipment Needed After Discharge: none Readmission Within the Last 30 Days: Readmission Within the Last 30 Days: current reason for admission unrelated to previous admission Medicare Documentation: Follow-up: [facility] [address] [place] [id number] Follow up Discharge Transportation: Transportation Anticipated: family or friend will provide Transportation Home at Discharge: Family/Friend will Provide Has discharge transport been arranged?: No Follow Up Transport: Transportation Needed to Follow up Appoinments: Family/Friend will Provide Additional Comments: Patient to be discharged home today. Patient is current with [facility]; CM updated. No new DME at this time. Family can provide transportation home. Talisha Mcnamara RN * Discharge Summary - Aaron Bowens MD - 11/22/2024 11:50 AM EDT Hospitalization Admit Date/Time: 11/19/2024 12:35 AM Admitting Attending: Alin Ivey Discharge Date: 11/22/2024 Discharge Attending Physician: Alin Ivey MD PCP name and Address: Laurie Gutierrez MD [address] [place] [address] Referring provider name and address: Nuria Lunsford PA [address] [place] [address] Chief Concern, Brief History of Present Illness, and Hospital Course History of Presenting Illness: Ms. 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 Of [...] UTI this prompted her to present to [facility]. On arrival she was found [...] Breztri Aerosphere 160-9-4.8 MCG/ACT aerosol Generic drug: Ckjlmui-Rgdeotejwle-Mormbzzsqy Inhale 2 puffs 2 (two) times a [...] on head 2 times a day nystatin 204957 UNIT/GM powder Commonly known as: Mycostatin Apply [...] Your Medications These medications were sent to [facility] - [place], [place] - [address] [facility] [id number] metoprolol tartrate 50 MG tablet Discharge Diagnosis [...] Time Provider Department Center 11/29/2024 10:30 AM [facility] JOSE MARTIN LEBRON [facility] 11/29/2024 11:00 AM Satnam Colvin MD HNRCHROACH [facility] 11/29/2024 12:30 PM [facility] 1 INFUSION TREATMENT [id number] [facility] 11/30/2024 1:30 PM CH [facility] 1 INFUSION TREATMENT DISRWH2CP [facility] 12/01/2024 2:00 PM CH [facility] 1 INFUSION TREATMENT [id number] [facility] 12/06/2024 11:40 AM [facility]um [facility] 01/19/2025 9:30 AM GS MR 2 [facility] 01/19/2025 10:45 AM Abhilash Bangura MD [facility] 03/08/2025 1:00 PM Teresita Oconnell MD [facility] Heart I Test Results Pending At [...] Care Review Outcome: Ongoing, Progressing Flowsheets Taken 11/21/20241953 by Flor Pierre, RN Progress: improving Taken 11/19/2024 1523 by [...] (see comments) Taken 11/21/2024 1000 by Flor Pierre RN Skin Protection: hydrocolloids used skin sealant/moisture [...] Monitor Pain and Promote Comfort Flowsheets (Taken 11/21/20242234 by Refugio Page, JOSE MARTIN) Pain Management Interventions: medication (see MAR) Intervention: Provide Person-Centered Care Flowsheets (Taken 11/21/20241953 by Flor Pierre RN) Trust Relationship/Rapport: emotional support provided choices [...] Manage Contributors Flowsheets (Taken 11/21/20241953 by Flor Pierre RN) Medication Review/Management: medications reviewed provider consulted Self-Care Promotion: independence encouraged adaptive equipment use encouraged Intervention: Promote Injury-Free Environment Flowsheets (Taken 11/21/20241953 by Flor Pierre RN) Safety Promotion/Fall Prevention: activity supervised fall [...] Progressing Flowsheets (Taken 11/21/20241953) Progress: improving 11/21/2024 0736 by Flor Pierre RN Outcome: Ongoing, Progressing Goal: Patient-Specific Goal (Individualized) 11/21/20241953 by Flor Pierre RN Outcome: Ongoing, Progressing 11/21/2024 0736 by Flor Pierre RN Outcome: Ongoing, Progressing Goal: Absence of Hospital-Acquired Illness or Injury 11/21/20241953 by Flor Pierre RN Outcome: Ongoing, Progressing 11/21/2024 0736 by Flor Pierre RN Outcome: Ongoing, Progressing Intervention: Identify and Manage Fall Risk Flowsheets (Taken 11/21/20241953) Safety Promotion/Fall Prevention: activity supervised fall prevention program maintained clutter-free environment maintained lighting adjusted mobility aid in reach nonskid shoes/slippers when out of bed Intervention: Prevent Skin Injury Flowsheets (Taken 11/21/2024 1000) Body Position: upper extremity elevated heels elevated legs elevated [place] chair Skin Protection: hydrocolloids used skin sealant/moisture [...] for Transition of Care 11/21/20241953 by Flor Pierre RN Outcome: Ongoing, [...] Flor Pierre RN Outcome: Ongoing, Progressing 11/21/2024 0736 by Flor Pierre RN Outcome: Ongoing, Progressing [...] Flor Pierre RN Outcome: Ongoing, Progressing 11/21/2024 0736 by Flor Pierre RN Outcome: Ongoing, Progressing [...] patient not responding to Macrobid, febrile on 11/20 am Plan: - Switching Macrobid to ceftriaxone [...] - Home gabapentin #HLD - home statin Bradyrosana Mendoza, MS3 Douglas Garcia MD Internal Medicine [...] Note Teresa Urbina 63 y.o. female CSN: [id number] Admission: 11/19/2024 12:35 AM Primary Problem: Atrial fibrillation with rapid ventricular response (CMS/HCC) Vp Cardiovascular Service Line reviewed chart and spoke with patient to complete this Initial Case Management Assessment. PCP: Laurie Gutierrez MD Emergency Contact: Extended Emergency Contact Information Primary Emergency Contact: NicoleZachary Mobile Relation: Son Preferred language: Danish Setter Machine needed? No Secondary Emergency Contact: NicoleAurora Mobile Relation: Daughter Preferred language: Danish Setter Machine needed? No Insurance: Primary Visit Coverage Payer Plan Sponsor Code Group Number Group Name [employer] [id number] Primary Visit Coverage Subscriber Subscriber ID Subscriber Name Subscriber SSN Subscriber Address [id number] TERESA URBINA [id number] [id number] Patient information: Primary Caregiver: Self Support System: Immediate family Daily Living Activities: Functional Status: Minimum assistance Living Arrangements: Alone Type of Residence: Private residence [address] [place] [address] Smoker in the Home?: N/A Current DME: [...] Health- Home Oxygen Living Will/Advance Directive/Power of Manager In Home /Guardian: Have you reviewed your Advance Directive [...] Note Teresa Urbina 63 y.o. female CSN: [id number] Room/Bed 876/876A Nutrition evaluation type: assessment Reason [...] Supplemental oxygen O2 Delivery Method: Nasal cannula Tk Coma Scale Score: 15 Rosendo Scale Score: [...] Weight Evaluation: Extreme Obesity (BMI > 40) [place] Body Weight (kg): 61.3 Percent [place] Body Weight: 190 Adjusted Body Weight (kg): 75.2 Estimated Needs: Metabolic Cart Study Results: Current Nutrition Intake: Diet Order: Adult Diet Diet Texture: Regular Other Restrictions: (disposables) Percent Meals Eaten (%): 36% x 6 recorded meals Diet Experience and Nutrition History: Diet Education Provided: Will monitor Pertinent home medications: reviewed Orthodoxy needs: Nutrition Focused Physical Exam: Physical exam performed on (date): 11/21 Temples (muscles): None Clavicle (muscle): None Shoulder (muscle): None Orbital (fat): None Triceps (fat): None Assessment of Malnutrition: Malnutrition Identified: No Nutrition Problem: Inadequate oral intake related to acute illness as evidenced by po intake 36%. Status of Nutrition Diagnosis: New Nutrition Interventions and Recommendations: - Boost [facility] at breakfast - Encourage adequate po intake Nutrition Monitoring and Goals: - PO intake > 75% of most meals - Monitor po intake and tolerance, weight changes, labs, GI function and skin integrity. Acuity Level: 1 Talisha Pepper, VALE, LD [1] Past Medical History: Diagnosis Date [...] SURGERY TUBAL LIGATION N/A Tubal Ligation from [employer] TYMPANOSTOMY TUBE PLACEMENT N/A Ear Surgery Eustachian Tube from [employer] [3] 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 Tobacco Use Smoking status: [...] metoprolol tartrate, 50 mg, Oral, BID Tiotropium [place] Monohydrate, 2 puff, Inhalation, Daily AND mometasone- [...] Goal: Patient-Specific Goal (Individualized) Flowsheets (Taken 11/21/2024 8587) Patient/Family-Specific Goals (Include Timeframe): Pt will be hemodynamically stable by 11/22 Individualized Care Needs: hemodynamically stable Anxieties, Fears or Concerns: prognosis Goal: Optimal Comfort and Wellbeing Intervention: Provide Person-Centered Care Flowsheets (Taken 11/20/2024 8138) Trust Relationship/Rapport: emotional support provided empathic listening provided questions encouraged questions answered reassurance provided * Consults - Roberto Lobato RN - 11/21/2024 12:44 AM EDT Labs obtained with US in the left AC x 1 attempt. Specimens handed to primary RN. * Significant Event - Jojo Singh RN - 11/21/2024 12:11 AM EDT 11/20/24 2348 Event/Notification Description Event Location [facility] and Room Number 876 Reason for Rapid Response Team notification mews Is the patient a DNR? No Type of Event PEWS/MEWS alert Method of Notification PEWS/MEWS alert Vitals Temp 37.4 ??C (99.3 ??F) Temp Source Axillary Heart Rate (!) 136 Resp 24 SpO2 100 % BINDER FOLDER OPERATOR notified of mews alert--messaged primary RN who has no concerns at this time. RN will continue to monitor closely. * Progress Notes - Douglas Garcia MD - 11/20/2024 1:08 PM EDT Images from the original note were not included. [facility] Medicine Progress Note Subjective Overnight team paged [...] responding to Macrobid, febrile on 7/6 am Plan: - Switching Macrobid to ceftriaxone [...] as documented. * Significant Event - Haven Agrawal, RN - 11/20/2024 1:02 PM EDT 11/20/24 1130 Event/Notification Description Event Location [facility] and Room Number 8w 876 Reason for Rapid Response Team notification decline Is the patient a DNR? No Type of Event Decline Type of Decline Cardiac Method of Notification Nurse (specify) (JOSE MARTIN Patel) Rapid Response Outcome Survival Yes Rapid Response Termination Due to Patient remained on floor 1130--Primary RN Amanda messaged BINDER FOLDER OPERATOR about a vital sign alert on Mrs. Urbina. Pt's HR has been 140's-160's. 25 mg metoprolol was admin earlier without any changes. Pt has been normotensive, no changes in condition. Pt does not have a fever at this time. Team is aware, wanted to have BINDER FOLDER OPERATOR aware. Pt had recent SDH and is currently not receiving anticoagulation. During chart review, noted pt kefln67jx toprol xl daily. Messaged team (MD Garcia and MD Ivey). Mds plan is to give 50 mg at 1400 today, unless HR sustains higher and/or hypotension occurs. Primary RN satisfied with poc at this time.Primary RN to continue to monitor patient. Please notify MD and BINDER FOLDER OPERATOR of any changes in patients condition and/or concerns. * Care Plan - Flor Pierre RN - 11/20/2024 7:34 AM EDT Problem: Adult Inpatient Plan of Care Goal: Plan of Care Review 11/20/2024732 by Flor Pierre RN Outcome: Ongoing, Progressing Flowsheets Taken 11/20/2024732 by Flor Pierre RN Progress: improving Taken 11/19/2024 152 by Kavita Hall RN Plan of Care [...] Progressing Problem: Dysrhythmia Goal: Normalized Cardiac Rhythm 11/20/2024732 by Flor Pierre RN Outcome: Ongoing, Progressing 11/19/20241827 by Flor Pierre RN Outcome: Ongoing, Progressing 11/19/20241826 by Flor Pierre RN Outcome: Ongoing, Progressing [...] fall who presents as a transfer from [facility] for afib w/ RVR, UTI. Of [...] UTI this prompted her to present to [facility]. On arrival she was found [...] of Metoprolol on admission - In RVR 11/21 am, ended by increasing metoprolol to 25 [...] patient not responding to Macrobid, febrile on 11/20 am and septic - Transitioned to ceftriaxone [...] fall who presents as a transfer from [facility] for afib w/ RVR, UTI. Of [...] of abdominal pain and dysuria and then 7/ developed a fever. Given prior sepsis w/ UTI this prompted her to present to [facility]. On arrival she was found [...] daily PRN, Do not crush or chew. Uullybt-Expbqrugkxq-Jfgpqelvxj (Breztri Aerosphere) 160-9-4.8 MCG/ACT aerosol 2 puffs, [...] 12 units and call provider. 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 [place] Coma Scale Score: 15 ED Course & [...] were ordered: ED Medication Administration from 11/18/2024 2258 to 11/19/2024 0343 Date/Time Order Dose Route [...] Okay To Give Nicotine Replacement Until discontinued AARON Villalta 11/19/24 034 Full code Continuous AARON Villalta 11/19/24 034 Adult diet Diet texture: Regular Diet effective now Acknowledged AARON BOWENS 11/19/24 034 Mobility Orders Until discontinued AARON Villalta 11/19/24 034 Notify physician (specify parameters) Until discontinued Acknowledged AARON BOWENS 11/19/24 034 Insert peripheral IV Once Placed in And Linked Group AARON Villalta 11/19/24 034 Saline lock IV Once Placed in And Linked Group AARON Villalta 11/19/24 034 Admit to inpatient Once AARON Villalta 11/19/24 033 Vital signs for transfusion Until discontinued Comments: Check vital signs immediately prior to transfusion, 15 minutes into transfusion, every hour and after completion of transfusion. AARON Villalta 11/19/24 033 Prepare Leukocyte Reduced RBC: 1 Units Blood - Once Placed in And Linked Group Final result ANDREA CUMMINGS 11/19/24336 Transfuse RBC Transfusion Placed in And Linked Group Preliminary result AARON BOWENS 11/19/24 0223 Consult to Hospital Medicine Once Specialty: Internal Medicine Provider: (Not yet assigned) Completed AARON BOWENS 11/19/24130 Initiate contact isolation Continuous Comments: Added via Instant Order OPA Acknowledged BPA, INSTANT ORDERS 11/19/24130 Vital signs for transfusion Until discontinued Comments: Check vital signs immediately prior to transfusion, 15 minutes into transfusion, every hour and after completion of transfusion. Acknowledged AARON BOWENS 11/19/24130 Type and screen Once Final result ANDREA CUMMINGS 11/19/24 013 Blood - Once Placed in And Linked Group Canceled ZOILAANDREA LAMB 11/19/24 013 Transfusion Placed in And Linked Group Canceled ZOILAANDREA LAMB 11/19/24 005 CBC w/diff STAT Final result ZOILA, ANDREA Kramer 11/19/24 005 CMP STAT Final result ZOILAANDREA 11/19/24 005 Magnesium STAT Final result ZOILA, ANDREA Kramer 11/19/24 005 Anti Xa Level Unfractionated Heparin STAT Final result ZOILA, ANDREA Kramer 11/19/24 005 Urinalysis with reflex microscopic AND reflex culture (IF UTI SUSPECTED) STAT Preliminary result ZOILA, ANDREA Kramer 11/19/24 005 Urinalysis with reflex microscopic (Culture NOT Included) PROCEDURE ONCE Final result ZOILA, ANDREA Kramer 11/19/24 005 Urine Meek Panel PROCEDURE ONCE Preliminary result ZOILAANDREA LAMB 11/19/24 004 POCT glucose meter PROCEDURE ONCE Final result POCT, GENERIC PROVIDER 11/19/24 004 ECG Adult Once Preliminary result [...] Physician: ALIN IVEY [[id number]] Provider Care Team: WENCESLAO Denise [[id number]] Are they the primary team?: Yes [...] SURGERY TUBAL LIGATION N/A Tubal Ligation from [facility] TYMPANOSTOMY TUBE PLACEMENT N/A Ear Surgery Eustachian Tube from [facility] [3] Family History Problem Relation Name Age [...] rxn details Andrea Cummings DO Resident 11/19/24 0529 Cosigned by Jose David Topete MD at [...] Description 01/05/2025 1:00 PM EDT Office Visit [facility] [address] [place] [address] Lia Barnes, SCRAPER LOADER OPERATOR [address] [facility] [address] [place] [address] 01/10/2025 9:00 AM EDT Clinical Support [facility] [address] [facility] 2nd [place] [phone] 01/10/2025 9:40 AM EDT Office Visit [facility] [address] [facility], [address]nd [place] [phone] aStnam Colvin MD [address] [facility] Nuria Degroot [facility] [address] [place] [address] 01/10/2025 12:00 PM EDT Appointment [facility] [address] [place] [phone] 01/11/2025 3:30 PM EDT Appointment [facility] [address] [place] [phone] 01/12/2025 3:30 PM EDT Appointment [facility] [address] [place] [phone] 01/19/2025 9:20 AM EDT Appointment [facility] S Radiology [address], [address]st [place] [phone] 01/19/2025 10:45 AM EDT [facility] Visit [facility] [address], [address] [place] [address] Abhilash Bangura MD [address] [place] [address] 01/26/2025 4:30 PM EDT Office Visit [facility] [address] [place] [address] Lia Barnes, SCRAPER LOADER OPERATOR [address] [facility] [address] [place] [address] 03/08/2025 1:00 PM EDT Office Visit [facility] [place] Wenceslao [address] [place] [phone] Teresita Oconnell MD [address] [place] [address] Scheduled Referrals Name Type Priority Associated Diagnoses Order Schedule Ambulatory referral to External PCP Outpatient Referral Routine Type 2 diabetes mellitus with diabetic neuropathy, unspecified whether care home insulin use ([facility]) 1 Occurrences starting 11/22/2024 until 05/26/2026 documented [...] Comment 11/22/2024 11:52 AM EDT HEALTHCARE LAB [employer] Technician ID Lisa Veliz 11/22/2024 11:52 AM EDT HEALTHCARE LAB Device ID [id number] 11/22/2024 11:52 AM EDT HEALTHCARE LAB Specimen Type POC Capillary 11/22/2024 11:52 AM EDT HEALTHCARE LAB Blood Capillary blood specimen / Unknown 11/22/2024 11:50 AM EDT 11/22/2024 11:52 AM EDT us Alin Ivey MD LAB POINT OF CARE TE ST DOCKED DEVICE UNSOLICITED RESULTS Final Result Performing Organization Address City/State/[facility] Co de Phone Number HEALTHCARE LAB [address] [place] [address] * Type and screen (11/22/2024 11:30 AM EDT) ABO/Rh O Positive 11/22/2024 10:58 AM EDT BLOOD BANK Antibody Screen Negative 11/22/2024 10:58 AM EDT BLOOD BANK Specimen Expiration 11/25/2024 23:59 11/22/2024 10:58 AM EDT BLOOD BANK Blood Venous blood specimen / Unknown Venipuncture / Unknown 11/22/2024 11:30 AM EDT 11/22/2024 11:36 AM EDT Alin Ivey MD LAB BLOOD BANK TEST ORDERABLES Final Result Performing Organization Address City/[facility]/ZIP Co de Phone Number BLOOD BANK [address] [place] [address], * Prepare Leukocyte Reduced RBC: 1 Units, Irradiated, Leukocyte reduced (CMV reduced risk) (11/22/2024 10:58 AM EDT) Pathologist [facility] Product Code [id number] BLOO D BANK Dispense Status Transfused BLOOD BANK Blood Expiration Date [id number] BLOOD BANK Unit Number [id number] CH B LOOD BANK Product Blood Type 5100 BLOOD BANK Blood Type O+ BLOOD BANK Crossmatch Compatible BLOOD BANK Other Alin Ivey MD BLOOD BANK PRODUCT ORDERABLES F inal Result Performing Organization Address City/[facility] Co de Phone Number BLOOD BANK [address] [place] [address], * (ABNORMAL) POCT glucose meter (11/22/2024 7:28 AM EDT) [facility] POCT Glucose 199(H) 74 - 99 mg/dL [...] 11/22/2024 7:30 AM EDT [facility] [employer] Technician ID Lisa Veliz 11/22/2024 7:30 AM EDT [facility] Device ID [id number] 11/22/2024 7:30 AM EDT [facility] Specimen Type POC Capillary 11/22/2024 7:30 AM EDT [facility] Blood Capillary blood specimen / Unknown 11/22/2024 7:28 AM EDT 11/22/2024 7:30 AM EDT us Alin Ivey MD LAB POINT OF CARE TE ST DOCKED DEVICE UNSOLICITED RESULTS Final Result [facility] [address] [place] [address] * (ABNORMAL) Basic metabolic panel (11/22/2024 2:44 AM EDT) Glucose, Plasma 210(H) 74 - 99 mg/dL 11/22/2024 3:19 AM EDT [facility] BUN, Plasma 6(L) 8 - 23 mg/dL 11/22/2024 3:19 AM EDT [facility] Creatinine, Plasma 0.61 0.60 - 1.10 mg/dL 11/22/2024 3:19 AM EDT [facility] BUN/Creatinine Ratio 10 11/22/2024 3:19 AM EDT [facility] Sodium, Plasma 141 136 - 145 mmol/L 11/22/2024 3:19 AM EDT [facility] Potassium, Plasma 3.5(L) 3.6 - 4.9 mmol/L 11/22/2024 3:19 AM EDT [facility] Chloride, Plasma 104 97 - 107 mmol/L 11/22/2024 3:19 AM EDT [facility] CO2, Plasma 24 22 - 29 mmol/L 11/22/2024 3:19 AM EDT [facility] Anion Gap 13 6 - 16 mmol/L 11/22/2024 3:19 AM EDT [facility] Total Calcium, Plasma 8.0(L) 8.9 - 10.2 mg/dL 11/22/2024 3:19 AM EDT [facility] eGFRcr 100.6 mL/min/1.7 3m*2 11/22/2024 3:19 AM EDT [facility] Comment:Reported eGFRcr in m L/min/1.73m2 is based the CKD-EPI 2020 equation that does not use a race coefficient. Blood Venous blood specimen / Unknown Venipuncture / Unknown 11/22/2024 2:44 AM EDT 11/22/2024 2:49 AM EDT us Alin Ivey MD LAB BLOOD ORDERABLES Final Resu lt [facility] [address] [place] [address] * (ABNORMAL) CBC W/O Differential (11/22/2024 2:44 AM EDT) WBC Count 6.07 3.70 - 10.30 10*3/uL LAB HEMATOLOGY METHOD 11/22/2024 3:04 AM EDT [facility] RBC Count 2.45(L) 3.90 - 5.20 10*6/uL LAB HEMATOLOGY METHOD 11/22/2024 3:04 AM EDT [facility] HGB 7.3(L) 11.2 - 15.7 g/dL LAB HEMATOLOGY METHOD 11/22/2024 3:04 AM EDT [facility] HCT 23.3(L) 34.0 - 45.0 % LAB HEMATOLOGY METHOD 11/22/2024 3:04 AM EDT [facility] Platelet Count 32(L) 155 - 369 10*3/uL LAB HEMATOLOGY METHOD 11/22/2024 3:04 AM EDT [facility] MCV 95 79 - 98 fL LAB HEMATOLOGY METHOD 11/22/2024 3:04 AM EDT [facility] MCH 29.8 26.0 - 32.0 pg LAB HEMATOLOGY METHOD 11/22/2024 3:04 AM EDT [facility] MCHC 31.3 30.7 - 35.5 g/dL LAB HEMATOLOGY METHOD 11/22/2024 3:04 AM EDT [facility] RDW 20.4(H) 11.5 - 14.5 % LAB HEMATOLOGY METHOD 11/22/2024 3:04 AM EDT [facility] MPV 11.6 8.8 - 12.5 fL LAB HEMATOLOGY METHOD 11/22/2024 3:04 AM EDT [facility] nRBC 0.7(H) <=0.0 per 100 WBCs LAB HEMATOLOGY METHOD 11/22/2024 3:04 AM EDT [facility] Blood Venous blood specimen / Unknown Venipuncture / Unknown 11/22/2024 2:44 AM EDT 11/22/2024 2:50 AM EDT us Alin Ivey MD LAB BLOOD ORDERABLES Final Resu lt Performing Organization Address City/[facility]/ZIP Co de Phone Number [facility] [address] [place] [address] * (ABNORMAL) POCT glucose meter (11/21/2024 7:48 [...] Comment 11/21/2024 7:50 PM EDT HEALTHCARE LAB [employer] Technician ID Carlos Nolasco 7:50 PM EDT HEALTHCARE LAB Device ID [id number] 11/21/2024 7:50 PM EDT HEALTHCARE LAB Specimen Type POC Capillary 11/21/2024 7:50 PM EDT HEALTHCARE LAB Blood Capillary blood specimen / Unknown 11/21/2024 7:48 PM EDT 11/21/2024 7:50 PM EDT us Alin Ivey MD LAB POINT OF CARE TE ST DOCKED DEVICE UNSOLICITED RESULTS Final Result Performing Organization Address [facility] Co de Phone Number [facility] [address] [place] [address] * (ABNORMAL) POCT glucose meter (11/21/2024 5:04 [...] Comment 11/21/2024 5:05 PM EDT HEALTHCARE LAB [employer] Technician ID Holley Schultz 025 5:05 PM EDT HEALTHCARE LAB Device ID [id number] 11/21/2024 5:05 PM EDT HEALTHCARE LAB Specimen Type POC Capillary 11/21/2024 5:05 PM EDT HEALTHCARE LAB Blood Capillary blood specimen / Unknown 11/21/2024 5:04 PM EDT 11/21/2024 5:05 PM EDT us Alin Ivey MD LAB POINT OF CARE TE ST DOCKED DEVICE UNSOLICITED RESULTS Final Result Performing Organization Address City/[facility] Co de Phone Number HEALTHCARE LAB [address] [place] [address] * (ABNORMAL) POCT glucose meter (11/21/2024 11:51 [...] Comment 11/21/2024 11:52 AM EDT HEALTHCARE LAB [employer] Technician ID Holley Schultz 025 11:52 AM EDT HEALTHCARE LAB Device ID [id number] 11/21/2024 11:52 AM EDT HEALTHCARE LAB Specimen Type POC Capillary 11/21/2024 11:52 AM EDT HEALTHCARE LAB Blood Capillary blood specimen / Unknown 11/21/2024 11:51 AM EDT 11/21/2024 11:52 AM EDT us Alin Ivey MD LAB POINT OF CARE TE ST DOCKED DEVICE UNSOLICITED RESULTS Final Result Performing Organization Address City/[facility] Co de Phone Number [facility] [address] [place] [address] * (ABNORMAL) POCT glucose meter (11/21/2024 7:56 AM EDT) [facility] POCT Glucose 218(H) 74 - 99 mg/dL 11/21/2024 7:57 AM EDT [facility] Comment:Accuracy of [...] Comment 11/21/2024 7:57 AM EDT HEALTHCARE LAB [employer] Technician ID Holley Schultz Nia 025 7:57 AM EDT HEALTHCARE LAB Device ID [id number] 11/21/2024 7:57 AM EDT HEALTHCARE LAB Specimen Type POC Capillary 11/21/2024 7:57 AM EDT HEALTHCARE LAB Blood Capillary blood specimen / Unknown 11/21/2024 7:56 AM EDT 11/21/2024 7:57 AM EDT us Alin Ivey MD LAB POINT OF CARE TE ST DOCKED DEVICE UNSOLICITED RESULTS Final Result [facility] [address] [place] [address] * (ABNORMAL) Basic Metabolic Panel, Plasma (11/21/2024 12:47 AM EDT) [facility] Glucose, Plasma 195(H) 74 - 99 mg/dL 11/21/2024 2:26 AM EDT [facility] BUN, Plasma 7(L) 8 - 23 mg/dL 11/21/2024 2:26 AM EDT [facility] Creatinine, Plasma 0.74 0.60 - 1.10 mg/dL 11/21/2024 2:26 AM EDT [facility] BUN/Creatinine Ratio 9 11/21/2024 2:26 AM EDT [facility] Sodium, Plasma 140 136 - 145 mmol/L 11/21/2024 2:26 AM EDT [facility] Potassium, Plasma 3.4(L) 3.6 - 4.9 mmol/L 11/21/2024 2:26 AM EDT [facility] Chloride, Plasma 102 97 - 107 mmol/L 11/21/2024 2:26 AM EDT [facility] CO2, Plasma 25 22 - 29 mmol/L 11/21/2024 2:26 AM EDT [facility] Anion Gap 13 6 - 16 mmol/L 11/21/2024 2:26 AM EDT [facility] Total Calcium, Plasma 8.1(L) 8.9 - 10.2 mg/dL 11/21/2024 2:26 AM EDT [facility] eGFRcr 91.0 mL/min/1.7 3m*2 11/21/2024 2:26 AM EDT [facility] Comment:Reported eGFRcr in m L/min/1.73m2 is based the CKD-EPI 2020 equation that does not use a race coefficient. Blood Venous blood specimen / Unknown Venipuncture / Unknown 11/21/2024 12:47 AM EDT 11/21/2024 1:43 AM EDT us Alin Ivey MD LAB BLOOD ORDERABLES Final Resu lt [facility] [address] [place] [address] * (ABNORMAL) CBC W/O Differential (11/21/2024 12:47 AM EDT) WBC Count 7.16 3.70 - 10.30 10*3/uL LAB HEMATOLOGY METHOD 11/21/2024 1:45 AM EDT [facility] RBC Count 2.52(L) 3.90 - 5.20 10*6/uL LAB HEMATOLOGY METHOD 11/21/2024 1:45 AM EDT [facility] HGB 7.5(L) 11.2 - 15.7 g/dL LAB HEMATOLOGY METHOD 11/21/2024 1:45 AM EDT [facility] HCT 23.5(L) 34.0 - 45.0 % LAB HEMATOLOGY METHOD 11/21/2024 1:45 AM EDT [facility] Platelet Count 37(L) 155 - 369 10*3/uL LAB HEMATOLOGY METHOD 11/21/2024 1:45 AM EDT [facility] MCV 93 79 - 98 fL LAB HEMATOLOGY METHOD 11/21/2024 1:45 AM EDT [facility] MCH 29.8 26.0 - 32.0 pg LAB HEMATOLOGY METHOD 11/21/2024 1:45 AM EDT [facility] MCHC 31.9 30.7 - 35.5 g/dL LAB HEMATOLOGY METHOD 11/21/2024 1:45 AM EDT [facility] RDW 20.9(H) 11.5 - 14.5 % LAB HEMATOLOGY METHOD 11/21/2024 1:45 AM EDT [facility] MPV 11.0 8.8 - 12.5 fL LAB HEMATOLOGY METHOD 11/21/2024 1:45 AM EDT [facility] nRBC 0.8(H) <=0.0 per 100 WBCs LAB HEMATOLOGY METHOD 11/21/2024 1:45 AM EDT [facility] Blood Venous blood specimen / Unknown Venipuncture / Unknown 11/21/2024 12:47 AM EDT 11/21/2024 1:36 AM EDT us Alin Ivey MD LAB BLOOD ORDERABLES Final Resu lt [facility] [address] [place] [address] * (ABNORMAL) POCT glucose meter (11/20/2024 8:22 PM EDT) [facility] POCT Glucose 241(H) 74 - 99 mg/dL 11/20/2024 8:24 PM EDT [facility] Comment:Accuracy of [...] for testing. Comment 11/20/2024 8:24 PM EDT [facility] [employer] Technician ID Wilfredo Johnson 11/20/2024 8:24 PM EDT HEALTHCARE LAB Device ID [id number] 11/20/2024 8:24 PM EDT HEALTHCARE LAB Specimen Type POC Capillary 11/20/2024 8:24 PM EDT HEALTHCARE LAB Blood Capillary blood specimen / Unknown 11/20/2024 8:22 PM EDT 11/20/2024 8:24 PM EDT Alin Ivey MD LAB POINT OF CARE TE ST DOCKED DEVICE UNSOLICITED RESULTS Final Result Performing Organization Address City/[facility] Co de Phone Number HEALTHCARE LAB [address] [place] [address] * (ABNORMAL) POCT glucose meter (11/20/2024 4:58 PM EDT) [facility] POCT Glucose 226(H) 74 - 99 mg/dL [...] Comment 11/20/2024 5:00 PM EDT HEALTHCARE LAB [employer] Technician ID Holley Schultz 025 5:00 PM EDT HEALTHCARE LAB Device ID [id number] 11/20/2024 5:00 PM EDT HEALTHCARE LAB Specimen Type POC Capillary 11/20/2024 5:00 PM EDT HEALTHCARE LAB Blood Capillary blood specimen / Unknown 11/20/2024 4:58 PM EDT 11/20/2024 5:00 PM EDT us Alin Ivey MD LAB POINT OF CARE TE ST DOCKED DEVICE UNSOLICITED RESULTS Final Result Performing Organization Address City/[facility] Co de Phone Number HEALTHCARE LAB [address] [place] [address] * (ABNORMAL) POCT glucose meter (11/20/2024 12:19 PM EDT) [facility] POCT Glucose 256(H) 74 - 99 mg/dL 11/20/2024 12:20 PM EDT HEALTHCARE LAB Comment:Accuracy of a [...] 11/20/2024 12:20 PM EDT [facility] [employer] Technician ID Holley Schultz Nia 025 12:20 PM EDT HEALTHCARE LAB Device ID [id number] 11/20/2024 12:20 PM EDT HEALTHCARE LAB Specimen Type POC Capillary 11/20/2024 12:20 PM EDT HEALTHCARE LAB Blood Capillary blood specimen / Unknown 11/20/2024 12:19 PM EDT 11/20/2024 12:20 PM EDT Alin Ivey MD LAB POINT OF CARE TE ST DOCKED DEVICE UNSOLICITED RESULTS Final Result Performing Organization Address City/State/[facility] Co de Phone Number [facility] [address] [place] [address] * (ABNORMAL) POCT glucose meter (11/20/2024 8:01 AM EDT) [facility] POCT Glucose 218(H) 74 - 99 mg/dL [...] for testing. Comment 11/20/2024 8:03 AM EDT [facility] [employer] Technician ID Holley Schultz Nia 025 8:03 AM EDT [facility] Device ID [id number] 11/20/2024 8:03 AM EDT [facility] Specimen Type POC Capillary 11/20/2024 8:03 AM EDT HEALTHCARE LAB Blood Capillary blood specimen / Unknown 11/20/2024 8:01 AM EDT 11/20/2024 8:03 AM EDT Alin Ivey MD LAB POINT OF CARE TE ST DOCKED DEVICE UNSOLICITED RESULTS Final Result [facility] [address] [place] [address] * ECG Adult (11/20/2024 7:20 AM EDT) EKG DIAGNOSIS CLASS Abnormal MUSE ECG Ventricular Rate 148 BPM MUSE ECG Atrial Rate 340 BPM MUSE ECG QRSD Interval 90 ms MUSE ECG QT Interval 298 ms MUSE ECG QTC Interval 467 ms MUSE ECG P [place] 110 degrees MUSE ECG R [place] 16 degrees MUSE ECG T Wave [place] 82 degrees MUSE ECG Diagnosis Atrial flutter with variable AV block MUSE ECG Diagnosis Nonspecific ST and T wave abnormality MUSE ECG Diagnosis Abnormal ECG MUSE ECG Diagnosis Compared to last ECG MUSE ECG Diagnosis atrial flutter has replaced sinus rhythm MUSE ECG Diagnosis MUSE ECG Diagnosis Confirmed by Leeroy Herbert ([id number]) on 11/20/2024 12:49:05 PM MUSE ECG 11/20/2024 7:20 AM EDT 11/20/2024 12:49 PM EDT Alin Ivey MD ECG ORDERABLES Final Result Performing Organization Address City/[facility] Co de Phone Number MUSE ECG * (ABNORMAL) Hemoglobin and Hematocrit, Blood (11/20/2024 12:57 AM EDT) HGB 7.9(L) 11.2 - 15.7 g/dL LAB HEMATOLOGY METHOD 11/20/2024 1:18 AM EDT [facility] HCT 24.8(L) 34.0 - 45.0 % LAB HEMATOLOGY METHOD 11/20/2024 1:18 AM EDT [facility] Blood Venous blood specimen / Unknown Venipuncture / Unknown 11/20/2024 12:57 AM EDT 11/20/2024 1:10 AM EDT Alin Ivey MD LAB BLOOD ORDERABLES Final Resu lt [facility] [address] [place] [address] * (ABNORMAL) CBC and Differential (11/20/2024 12:57 AM EDT) WBC Count 5.47 3.70 - 10.30 10*3/uL LAB HEMATOLOGY METHOD 11/20/2024 2:38 AM EDT [facility] RBC Count 2.71(L) 3.90 - 5.20 10*6/uL LAB HEMATOLOGY METHOD 11/20/2024 2:38 AM EDT [facility] HGB 7.9(L) 11.2 - 15.7 g/dL LAB HEMATOLOGY METHOD 11/20/2024 2:38 AM EDT [facility] HCT 24.8(L) 34.0 - 45.0 % LAB HEMATOLOGY METHOD 11/20/2024 2:38 AM EDT [facility] Platelet Count 44(L) 155 - 369 10*3/uL LAB HEMATOLOGY METHOD 11/20/2024 2:38 AM EDT [facility] MCV 92 79 - 98 fL LAB HEMATOLOGY METHOD 11/20/2024 2:38 AM EDT [facility] Comment:Results inconsistent with previous lab findings. MCH 29.2 26.0 - 32.0 pg LAB HEMATOLOGY METHOD 11/20/2024 2:38 AM EDT [facility] MCHC 31.9 30.7 - 35.5 g/dL LAB HEMATOLOGY METHOD 11/20/2024 2:38 AM EDT [facility] RDW 20.9(H) 11.5 - 14.5 % LAB HEMATOLOGY METHOD 11/20/2024 2:38 AM EDT [facility] MPV 10.3 8.8 - 12.5 fL LAB HEMATOLOGY METHOD 11/20/2024 2:38 AM EDT [facility] nRBC 1.3(H) <=0.0 per 100 WBCs LAB HEMATOLOGY METHOD 11/20/2024 2:38 AM EDT [facility] Differential Type Automated LAB HEMATOLOGY METHOD 11/20/2024 2:38 AM EDT [facility] Neutrophils % 70 % LAB HEMATOLOGY METHOD 11/20/2024 2:38 AM EDT [facility] Lymphocytes % 14 % LAB HEMATOLOGY METHOD 11/20/2024 2:38 AM EDT [facility] Monocytes % 7 % LAB HEMATOLOGY METHOD 11/20/2024 2:38 AM EDT [facility] Eosinophils % 3 % LAB HEMATOLOGY METHOD 11/20/2024 2:38 AM EDT [facility] Basophils % 1 % LAB HEMATOLOGY METHOD 11/20/2024 2:38 AM EDT [facility] Immature Granulocytes % 5 % LAB HEMATOLOGY METHOD 11/20/2024 2:38 AM EDT [facility] Neutrophils Absolute 3.82 1.60 - 6.10 10*3/uL LAB HEMATOLOGY METHOD 11/20/2024 2:38 AM EDT [facility] Lymphocytes Absolute 0.75(L) 1.20 - 3.90 10*3/uL LAB HEMATOLOGY METHOD 11/20/2024 2:38 AM EDT [facility] Monocytes Absolute 0.39 0.30 - 0.90 10*3/uL LAB HEMATOLOGY METHOD 11/20/2024 2:38 AM EDT [facility] Eosinophils Absolute 0.16 0.00 - 0.50 10*3/uL LAB HEMATOLOGY METHOD 11/20/2024 2:38 AM EDT [facility] Basophils Absolute 0.07 0.00 - 0.10 10*3/uL LAB HEMATOLOGY METHOD 11/20/2024 2:38 AM EDT [facility] Immature Granulocytes Absolute 0.28(H) 0.00 - 0.06 10*3/uL LAB HEMATOLOGY METHOD 11/20/2024 2:38 AM EDT [facility] Blood Venous blood specimen / Unknown Venipuncture / Unknown 11/20/2024 12:57 AM EDT 11/20/2024 1:10 AM EDT Narrative [facility] - 11/20/2024 2:38 AM EDT Therapeutic decision making should be based on absolute values, rather than percentages. us Alin Ivey MD LAB BLOOD ORDERABLES Final Resu lt [facility] [address] [place] [address] * (ABNORMAL) Magnesium, Plasma (11/20/2024 12:57 AM EDT) Magnesium, Plasma 1.7(L) 1.9 - 2.4 mg/dL 11/20/2024 1:39 AM EDT [facility] Blood Venous blood specimen / Unknown Venipuncture / Unknown 11/20/2024 12:57 AM EDT 11/20/2024 1:10 AM EDT us Alin Ivey MD LAB BLOOD ORDERABLES Final Resu lt Performing Organization Address [facility] Co de Phone Number [facility] [address] [place] [address] * (ABNORMAL) Phosphorus, Plasma (11/20/2024 12:57 AM EDT) Phosphorus, Plasma 2.1(L) 2.5 - 4.5 mg/dL 11/20/2024 1:39 AM EDT [facility] Blood Venous blood specimen / Unknown Venipuncture / Unknown 11/20/2024 12:57 AM EDT 11/20/2024 1:10 AM EDT us Alin Ivey MD LAB BLOOD ORDERABLES Final Resu lt Performing Organization Address [facility] Co de Phone Number [facility] [address] [place] [address] * (ABNORMAL) Basic Metabolic Panel, Plasma (11/20/2024 12:57 AM EDT) Glucose, Plasma 160(H) 74 - 99 mg/dL 11/20/2024 1:39 AM EDT [facility] BUN, Plasma 10 8 - 23 mg/dL 11/20/2024 1:39 AM EDT [facility] Creatinine, Plasma 0.75 0.60 - 1.10 mg/dL 11/20/2024 1:39 AM EDT [facility] BUN/Creatinine Ratio 13 11/20/2024 1:39 AM EDT [facility] Sodium, Plasma 137 136 - 145 mmol/L 11/20/2024 1:39 AM EDT [facility] Potassium, Plasma 3.4(L) 3.6 - 4.9 mmol/L 11/20/2024 1:39 AM EDT [facility] Chloride, Plasma 100 97 - 107 mmol/L 11/20/2024 1:39 AM EDT [facility] CO2, Plasma 24 22 - 29 mmol/L 11/20/2024 1:39 AM EDT [facility] Anion Gap 13 6 - 16 mmol/L 11/20/2024 1:39 AM EDT [facility] Total Calcium, Plasma 8.4(L) 8.9 - 10.2 mg/dL 11/20/2024 1:39 AM EDT [facility] eGFRcr 89.6 mL/min/1.7 3m*2 11/20/2024 1:39 AM EDT [facility] Comment:Reported eGFRcr in m L/min/1.73m2 is based the CKD-EPI 2020 equation that does not use a race coefficient. Blood Venous blood specimen / Unknown Venipuncture / Unknown 11/20/2024 12:57 AM EDT 11/20/2024 1:10 AM EDT us Alin Ivey MD LAB BLOOD ORDERABLES Final Resu lt [facility] [address] [place] [address] * (ABNORMAL) POCT glucose meter (11/19/2024 9:42 PM EDT) POCT Glucose 186(H) 74 - 99 mg/dL 11/19/2024 9:44 PM EDT [facility] Comment:Accuracy of a glucos e result [...] Comment 11/19/2024 9:44 PM EDT [facility]ALTHCARE [facility] [employer] Technician ID Wilfredo Johnson 11/19/2024 9:44 PM EDT [employer] LAB Device ID [id number] 11/19/2024 9:44 PM EDT [facility] Specimen Type POC Capillary 11/19/2024 9:44 PM EDT [facility] Blood Capillary blood specimen / Unknown 11/19/2024 9:42 PM EDT 11/19/2024 9:44 PM EDT us Alin Ivey MD LAB POINT OF CARE TE ST DOCKED DEVICE UNSOLICITED RESULTS Final Result Performing Organization Address [facility] de Phone Number [facility] [address] [place] [address] * Wilbur auris Surveillance by PCR (11/19/2024 7:58 PM EDT) [facility] Wilbur auris PCR Result Not Detected Not Detected 11/20/2024 1:19 PM EDT [facility] Swab (Axilla and Groin) Non-blood Collection / Unknown 11/19/2024 7:58 PM EDT 11/19/2024 8:33 PM EDT Narrative [facility] - 11/20/2024 1:19 PM EDT This PCR assay was developed and its performance characteristics determined by [facility] as appropriate for clinical purposes. This assay has not been cleared or approved by the FDA, but is performed in a CLIA regulated laboratory that is qualified to perform high-complexity testing. us Alin Ivey MD LAB MICROBIOLOGY - GENERAL BENNETT NAYAK Final Result Performing Organization Address [facility] [place] [address] * (ABNORMAL) POCT glucose meter (11/19/2024 4:35 PM EDT) Pathologist [facility] POCT Glucose 176(H) 74 - 99 mg/dL 11/19/2024 4:36 PM EDT [facility] Comment:Accuracy of a glucos e result [...] for testing. Comment 11/19/2024 4:36 PM EDT HEALTHCARE [facility] [employer] Technician ID Bi Mascorro 025 4:36 PM EDT HEALTHCARE LAB Device ID [id number] 11/19/2024 4:36 PM EDT [facility]ALTH[facility]ARE LAB Specimen Type POC Capillary 11/19/2024 4:36 PM EDT [facility] Blood Capillary blood specimen / Unknown 11/19/2024 4:35 PM EDT 11/19/2024 4:36 PM EDT us Alin Ivey MD LAB POINT OF CARE TE ST DOCKED DEVICE UNSOLICITED RESULTS Final Result Performing Organization Address City/[facility]/ZIP Co de Phone Number HEALTHCARE LAB [address] [place] [address] * (ABNORMAL) Hemoglobin and Hematocrit, Blood (11/19/2024 4:18 PM EDT) [facility] Signature HGB 8.2(L) 11.2 - 15.7 g/dL LAB HEMATOLOGY METHOD 11/19/2024 4:23 PM EDT [facility] HCT 25.7(L) 34.0 - 45.0 % LAB HEMATOLOGY METHOD 11/19/2024 4:23 PM EDT [facility] Blood Venous blood specimen / Unknown Venipuncture / Unknown 11/19/2024 4:18 PM EDT 11/19/2024 4:21 PM EDT us Alin Ivey MD LAB BLOOD ORDERABLES Final Resu lt [facility] [address] [place] [address] * Transfuse RBC (11/19/2024 4:13 PM EDT) [...] Comment 11/19/2024 2:29 PM EDT [facility] [employer] Technician ID Bi Mascorro 025 2:29 PM EDT HEALTHCARE LAB Device ID [id number] 11/19/2024 2:29 PM EDT [facility]ALTH[facility]ARE LAB Specimen Type POC Capillary 11/19/2024 2:29 PM EDT [facility]ALTH[facility]ARE LAB Blood Capillary blood specimen / Unknown 11/19/2024 2:27 PM EDT 11/19/2024 2:29 PM EDT Alin Ivey MD LAB POINT OF CARE TE ST DOCKED DEVICE UNSOLICITED RESULTS Final Result Performing Organization Address City/State/[facility] Co de Phone Number [facility] [address] [place] [address] * Prepare Leukocyte Reduced RBC: 2 Units (11/19/2024 11:58 AM EDT) Product Code [id number] BLOO D BANK Dispense Status Transfused BLOOD BANK Blood Expiration Date [id number] BLOOD BANK Unit Number [id number] CH B LOOD BANK Product Blood Type 5100 BLOOD BANK Blood Type O+ CH BLOOD BANK Crossmatch Compatible BLOOD BANK Product Code [id number] CH BLOO D BANK Dispense Status Transfused BLOOD BANK Blood Expiration Date [id number] BLOOD BANK Unit Number [id number] CH B LOOD BANK Product Blood Type 5100 BLOOD BANK Blood Type O+ CH BLOOD BANK Crossmatch Compatible BLOOD BANK Other Alin Ivey MD BLOOD BANK PRODUCT ORDERABLES F inal Result Performing Organization Address [facility] Co de Phone Number BLOOD BANK [address] * (ABNORMAL) Hemoglobin and Hematocrit, Blood (11/19/2024 11:44 AM EDT) Pathologist [facility] HGB 6.1(LL) 11.2 - 15.7 g/dL LAB HEMATOLOGY METHOD 11/19/2024 11:48 AM EDT [facility] HCT 19.1(LL) 34.0 - 45.0 % LAB HEMATOLOGY METHOD 11/19/2024 11:48 AM EDT [facility] Blood Venous blood specimen / Unknown Venipuncture / Unknown 11/19/2024 11:44 AM EDT 11/19/2024 11:45 AM EDT Alin Ivey MD LAB BLOOD ORDERABLES Final Resu lt Performing Organization Address [facility] de Phone Number [facility] [address] [place] [address] * (ABNORMAL) POCT glucose meter (11/19/2024 11:40 AM EDT) [facility] POCT Glucose 175(H) 74 - 99 mg/dL 11/19/2024 11:47 AM EDT [facility] Comment:Accuracy of [...] for testing. Comment 11/19/2024 11:47 AM EDT [facility] [employer] Technician ID Bi Mascorro 025 11:47 AM EDT HEALTHCARE LAB Device ID [id number] 11/19/2024 11:47 AM EDT [facility]ALTH[facility]ARE LAB Specimen Type POC Capillary 11/19/2024 11:47 AM EDT [facility]ALTH[facility]ARE LAB Blood Capillary blood specimen / Unknown 11/19/2024 11:40 AM EDT 11/19/2024 11:47 AM EDT Alin Ivey MD LAB POINT OF CARE TE ST DOCKED DEVICE UNSOLICITED RESULTS Final Result [facility] [address] [place] [address] * ECG Adult (11/19/2024 8:09 AM EDT) Pathologist [facility] EKG DIAGNOSIS CLASS Borderline Normal MUSE ECG Ventricular Rate 75 BPM MUSE ECG Atrial Rate 75 BPM MUSE ECG DE Interval 134 ms MUSE ECG QRSD Interval 102 ms MUSE ECG QT Interval 404 ms MUSE ECG QTC Interval 451 ms MUSE ECG P [place] 66 degrees MUSE ECG R [place] 13 degrees MUSE ECG T Wave [place] 45 degrees MUSE ECG Diagnosis Sinus rhythm with blocked premature atrial complexes MUSE ECG Diagnosis Otherwise normal ECG MUSE ECG Diagnosis Compared to last ECG MUSE ECG Diagnosis Sinus rhythm has replaced atrial fibrillation MUSE ECG Diagnosis Confirmed by Leeroy Herbert ([id number]) on 11/19/2024 11:36:19 AM MUSE ECG 11/19/2024 8:09 AM EDT 11/19/2024 11:36 AM EDT Alin Ivey MD ECG ORDERABLES Final Result MUSE ECG * (ABNORMAL) POCT glucose meter (11/19/2024 7:42 AM EDT) [facility] POCT Glucose 165(H) 74 - 99 mg/dL [...] 11/19/2024 7:45 AM EDT [facility] [employer] Technician ID Cecilia Arroyon 7:45 AM EDT [facility] Device ID [id number] 11/19/2024 7:45 AM EDT [facility] Specimen Type POC Capillary 11/19/2024 7:45 AM EDT [facility]ALTH[facility]ARE LAB Blood Capillary blood specimen / Unknown 11/19/2024 7:42 AM EDT 11/19/2024 7:45 AM EDT us Alin Ivey MD LAB POINT OF CARE TE ST DOCKED DEVICE UNSOLICITED RESULTS Final Result Performing Organization Address City/[facility] Co de Phone Number HEALTHCARE LAB [address] [place] [address] * (ABNORMAL) POCT glucose meter (11/19/2024 6:11 AM EDT) [facility] Signature POCT Glucose 159(H) 74 - 99 mg/dL [...] Comment 11/19/2024 6:14 AM EDT [facility]ALTH[facility] [employer] Technician ID Litzy Powell 025 6:14 AM EDT HEALTHCARE LAB Device ID [id number] 11/19/2024 6:14 AM EDT [facility]ALTH[facility]ARE LAB Specimen Type POC Capillary 11/19/2024 6:14 AM EDT [facility] Blood Capillary blood specimen / Unknown 11/19/2024 6:11 AM EDT 11/19/2024 6:14 AM EDT us Alin Ivey MD LAB POINT OF CARE TE ST DOCKED DEVICE UNSOLICITED RESULTS Final Result Performing Organization Address City/[facility]/ZIP Co de Phone Number HEALTHCARE LAB [address] [place] [address] * Transfuse RBC (11/19/2024 5:27 AM EDT) [...] Comment 11/19/2024 4:06 AM EDT [facility] [employer] Technician ID Lashanda Stearns 11/20/19 4:06 AM EDT HEALTHCARE LAB Device ID [id number] 11/19/2024 4:06 AM EDT [facility] Specimen Type POC Capillary 11/19/2024 4:06 AM EDT [facility] Blood Capillary blood specimen / Unknown 11/19/2024 4:05 AM EDT 11/19/2024 4:06 AM EDT us Alin Ivey MD LAB POINT OF CARE TE ST DOCKED DEVICE UNSOLICITED RESULTS Final Result Performing Organization Address City/[facility]/ZIP Co de Phone Number HEALTHCARE LAB [address] [place] [address] * Lactate, venous (11/19/2024 3:59 AM EDT) [facility] Lactate, Venous, Whole Blood 1.6 0.5 - 2.2 mmol/L LAB HEMATOLOGY METHOD 11/19/2024 4:08 AM EDT [facility] Blood Venous blood specimen / Unknown Venipuncture / Unknown 11/19/2024 3:59 AM EDT 11/19/2024 4:07 AM EDT us Jose David Topete MD LAB BLOOD ORDERABLES Final Resu lt Performing Organization Address City/[facility]/ZIP Co de Phone Number [facility] [address] [place] [address] * Prepare Leukocyte Reduced RBC: 1 Units (11/19/2024 3:38 AM EDT) Product Code E1523S70 BLOO D BANK Dispense Status Transfused BLOOD BANK Blood Expiration Date [id number] BLOOD BANK Unit Number [id number] B LOOD BANK Product Blood Type 5100 BLOOD BANK Blood Type O+ BLOOD BANK Crossmatch Compatible BLOOD BANK Other Jose David Topete MD BLOOD BANK PRODUCT ORDERABLES F inal Result Performing Organization Address [facility] Co de Phone Number BLOOD BANK [address] [place] [address], * Urine Meek Panel (11/19/2024 3:37 AM EDT) Extra Reflex urine culture not indicated 11/19/2024 12:01 PM EDT [facility] Comment: Previously prelim verified as [...] ORDERABLES Final Resu lt Performing Organization Address City/[facility]/ZIP Co de Phone Number [facility] [address] [place] [address] * (ABNORMAL) Urinalysis with reflex microscopic (Culture NOT Included) (11/19/2024 3:37 AM EDT) Color, Urine Yellow LAB URINALYSIS - AUTOMATED METHOD 11/19/2024 4:09 AM EDT [facility] Clarity, Urine Clear LAB URINALYSIS - AUTOMATED METHOD 11/19/2024 4:09 AM EDT [facility] Spec [place], Urine >1.030(H) 1.005 - 1.030 LAB URINALYSIS - AUTOMATED METHOD 11/19/2024 4:09 AM EDT [facility] pH, Urine 6.0 5.0 - 8.0 LAB URINALYSIS - AUTOMATED METHOD 11/19/2024 4:09 AM EDT [facility] Protein, Urine Negative Negative mg/dL LAB URINALYSIS - AUTOMATED METHOD 11/19/2024 4:09 AM EDT [facility] Glucose, Urine >=1000(A) Negative mg/dL LAB URINALYSIS - AUTOMATED METHOD 11/19/2024 4:09 AM EDT [facility] Ketones, Urine Negative Negative mg/dL LAB URINALYSIS - AUTOMATED METHOD 11/19/2024 4:09 AM EDT [facility] Blood, Urine Negative Negative LAB URINALYSIS - AUTOMATED METHOD 11/19/2024 4:09 AM EDT [facility] Bilirubin, Urine Negative Negative LAB URINALYSIS - AUTOMATED METHOD 11/19/2024 4:09 AM EDT [facility] Urobilinogen, Urine 0.2 0.2 to 1.0 mg/dL LAB URINALYSIS - AUTOMATED METHOD 11/19/2024 4:09 AM EDT [facility] Leukocytes, Urine Negative Negative LAB URINALYSIS - AUTOMATED METHOD 11/19/2024 4:09 AM EDT [facility] Nitrite, Urine Negative Negative LAB URINALYSIS - AUTOMATED METHOD 11/19/2024 4:09 AM EDT [facility] Urine Urine specimen obtained by clean catch procedure / Unknown Non-blood Collection / Unknown 11/19/2024 3:37 AM EDT 11/19/2024 4:06 AM EDT us Jose David Topete MD LAB URINE ORDERABLES Final Resu lt [facility] [address] [place] [address] * Type and screen (11/19/2024 1:33 AM [...] TEST ORDERABLES Final Result BLOOD BANK [address] [place] [address], * (ABNORMAL) Iron & Total Iron Binding Capacity, Plasma (Includes Transferrin) (11/19/2024 12:51 AM EDT) Iron, Plasma 67 30 - 160 ug/dL 11/19/2024 4:08 AM EDT [facility] Transferrin, Plasma 182(L) 200 - 360 mg/dL 11/19/2024 4:08 AM EDT [facility] Total Iron Binding Capacity, Plasma 228(L) 240 - 450 ug/mL 11/19/2024 4:08 AM EDT [facility] Transferrin Saturation 29 14 - 50 % 11/19/2024 4:08 AM EDT [facility] Blood Venous blood specimen / Unknown Venipuncture / Unknown 11/19/2024 12:51 AM EDT 11/19/2024 12:53 AM EDT us Alin Ivey MD LAB BLOOD ORDERABLES Final Resu lt [facility] [address] [place] [address] * Anti Xa Level Unfractionated Heparin (11/19/2024 12:51 AM EDT) Anti Xa Level Unfractionated Heparin <0.11 <1.00 IU/mL 11/19/2024 1:10 AM EDT [facility] Blood Venous blood specimen / Unknown Venipuncture / Unknown 11/19/2024 12:51 AM EDT 11/19/2024 12:53 AM EDT Narrative [facility] - 11/19/2024 1:10 AM EDT Therapeutic Range: UFH Full Dose and ACS/VT protocols*: 0.30 - 0.70 IU/mL UFH Low Dose protocol*: 0.25 - 0.50 IU/mL UFH prophylaxis: Not established us Jose David Topete MD LAB BLOOD ORDERABLES Final Resu lt Performing Organization Address [facility]/ZIP Co de Phone Number [facility] [address] [place] [address] * (ABNORMAL) Magnesium (11/19/2024 12:51 AM EDT) Magnesium, Plasma 1.6(L) 1.9 - 2.4 mg/dL 11/19/2024 1:23 AM EDT [facility] Blood Venous blood specimen / Unknown Venipuncture / Unknown 11/19/2024 12:51 AM EDT 11/19/2024 12:53 AM EDT us Jose David Topete MD LAB BLOOD ORDERABLES Final Resu lt Performing Organization Address City/[facility]/ZIP Co de Phone Number [facility] [address] [place] [address] * (ABNORMAL) CMP (11/19/2024 12:51 AM EDT) Glucose, Plasma 130(H) 74 - 99 mg/dL 11/19/2024 1:23 AM EDT [facility] BUN, Plasma 19 8 - 23 mg/dL 11/19/2024 1:23 AM EDT [facility] Creatinine, Plasma 1.08 0.60 - 1.10 mg/dL 11/19/2024 1:23 AM EDT [facility] BUN/Creatinine Ratio 18 11/19/2024 1:23 AM EDT [facility] Sodium, Plasma 136 136 - 145 mmol/L 11/19/2024 1:23 AM EDT [facility] Potassium, Plasma 3.4(L) 3.6 - 4.9 mmol/L 11/19/2024 1:23 AM EDT [facility] Chloride, Plasma 99 97 - 107 mmol/L 11/19/2024 1:23 AM EDT [facility] CO2, Plasma 23 22 - 29 mmol/L 11/19/2024 1:23 AM EDT [facility] Anion Gap 14 6 - 16 mmol/L 11/19/2024 1:23 AM EDT [facility] Total Calcium, Plasma 9.1 8.9 - 10.2 mg/dL 11/19/2024 1:23 AM EDT [facility] Total Protein 6.4 6.3 - 7.9 g/dL 11/19/2024 1:23 AM EDT [facility] Albumin, Plasma 3.5 3.5 - 5.2 g/dL 11/19/2024 1:23 AM EDT [facility] AST, Plasma 12 10 - 35 U/L 11/19/2024 1:23 AM EDT [facility] ALT, Plasma 19 10 - 35 U/L 11/19/2024 1:23 AM EDT [facility] Alkaline Phosphatase, Plasma 99 46 - 142 U/L 11/19/2024 1:23 AM EDT [facility] Total Bilirubin, Plasma 0.7 0.2 - 1.1 mg/dL 11/19/2024 1:23 AM EDT [facility] eGFRcr 57.8 mL/min/1.7 3m*2 11/19/2024 1:23 AM EDT [facility] Comment:Reported eGFRcr in m L/min/1.73m2 is based the CKD-EPI 2020 equation that does not use a race coefficient. Blood Venous blood specimen / Unknown Venipuncture / Unknown 11/19/2024 12:51 AM EDT 11/19/2024 12:53 AM EDT us Jose David Topete MD LAB BLOOD ORDERABLES Final Resu lt [facility] [address] [place] [address] * (ABNORMAL) CBC w/diff (11/19/2024 12:51 AM EDT) WBC Count 3.61(L) 3.70 - 10.30 10*3/uL LAB HEMATOLOGY METHOD 11/19/2024 2:05 AM EDT [facility] RBC Count 2.08(L) 3.90 - 5.20 10*6/uL LAB HEMATOLOGY METHOD 11/19/2024 2:05 AM EDT [facility] HGB 6.5(L) 11.2 - 15.7 g/dL LAB HEMATOLOGY METHOD 11/19/2024 2:05 AM EDT [facility] HCT 20.8(L) 34.0 - 45.0 % LAB HEMATOLOGY METHOD 11/19/2024 2:05 AM EDT [facility] Platelet Count 73(L) 155 - 369 10*3/uL LAB HEMATOLOGY METHOD 11/19/2024 2:05 AM EDT [facility] MCV 100(H) 79 - 98 fL LAB HEMATOLOGY METHOD 11/19/2024 2:05 AM EDT [facility] MCH 31.3 26.0 - 32.0 pg LAB HEMATOLOGY METHOD 11/19/2024 2:05 AM EDT [facility] MCHC 31.3 30.7 - 35.5 g/dL LAB HEMATOLOGY METHOD 11/19/2024 2:05 AM EDT [facility] RDW 17.3(H) 11.5 - 14.5 % LAB HEMATOLOGY METHOD 11/19/2024 2:05 AM EDT [facility] MPV 10.7 8.8 - 12.5 fL LAB HEMATOLOGY METHOD 11/19/2024 2:05 AM EDT [facility] nRBC 2.2(H) <=0.0 per 100 WBCs LAB HEMATOLOGY METHOD 11/19/2024 2:05 AM EDT [facility] Differential Type Automated LAB HEMATOLOGY METHOD 11/19/2024 2:05 AM EDT [facility] Neutrophils % 54 % LAB HEMATOLOGY METHOD 11/19/2024 2:05 AM EDT [facility] Lymphocytes % 27 % LAB HEMATOLOGY METHOD 11/19/2024 2:05 AM EDT [facility] Monocytes % 11 % LAB HEMATOLOGY METHOD 11/19/2024 2:05 AM EDT [facility] Eosinophils % 4 % LAB HEMATOLOGY METHOD 11/19/2024 2:05 AM EDT [facility] Basophils % 2 % LAB HEMATOLOGY METHOD 11/19/2024 2:05 AM EDT [facility] Immature Granulocytes % 2 % LAB HEMATOLOGY METHOD 11/19/2024 2:05 AM EDT [facility] Neutrophils Absolute 1.99 1.60 - 6.10 10*3/uL LAB HEMATOLOGY METHOD 11/19/2024 2:05 AM EDT [facility] Lymphocytes Absolute 0.97(L) 1.20 - 3.90 10*3/uL LAB HEMATOLOGY METHOD 11/19/2024 2:05 AM EDT [facility] Monocytes Absolute 0.38 0.30 - 0.90 10*3/uL LAB HEMATOLOGY METHOD 11/19/2024 2:05 AM EDT [facility] Eosinophils Absolute 0.13 0.00 - 0.50 10*3/uL LAB HEMATOLOGY METHOD 11/19/2024 2:05 AM EDT [facility] Basophils Absolute 0.07 0.00 - 0.10 10*3/uL LAB HEMATOLOGY METHOD 11/19/2024 2:05 AM EDT [facility] Immature Granulocytes Absolute 0.07(H) 0.00 - 0.06 10*3/uL LAB HEMATOLOGY METHOD 11/19/2024 2:05 AM EDT [facility] Blood Venous blood specimen / Unknown Venipuncture / Unknown 11/19/2024 12:51 AM EDT 11/19/2024 12:53 AM EDT Narrative [facility] - 11/19/2024 2:05 AM EDT Therapeutic decision making should be based on absolute values, rather than percentages. us Jose David Topete MD LAB BLOOD ORDERABLES Final Resu lt [facility] [address] [place] [address] * (ABNORMAL) POCT glucose meter (11/19/2024 12:43 [...] Comment 11/19/2024 12:45 AM EDT [facility]ALTH[facility]ARE [facility] [employer] Technician ID Noam Stiles 11/19/2024 12:45 AM EDT HEALTHCARE LAB Device ID [id number] 11/19/2024 12:45 AM EDT [facility]ALTH[facility]ARE LAB Specimen Type POC Capillary 11/19/2024 12:45 AM EDT [facility] Blood Capillary blood specimen / Unknown 11/19/2024 12:43 AM EDT 11/19/2024 12:45 AM EDT us Generic Provider Poct LAB POINT OF CARE TEST DOCKED DEVICE UNSOLICITED RESULTS Final Result Performing Organization Address City/State/[facility] Co de Phone Number HEALTHCARE LAB [address] [place] [address] * ECG Adult (11/19/2024 12:42 AM EDT) Pathologist [facility] EKG DIAGNOSIS CLASS Abnormal MUSE ECG Ventricular Rate 140 BPM MUSE ECG QRSD Interval 90 ms MUSE ECG QT Interval 288 ms MUSE ECG QTC Interval 439 ms MUSE ECG R [place] 23 degrees MUSE ECG T Wave [place] 101 degrees MUSE ECG Diagnosis Baseline Artifact MUSE ECG Diagnosis Atrial fibrillation with rapid ventricular response MUSE ECG Diagnosis Nonspecific ST and T wave abnormality MUSE ECG Diagnosis Abnormal ECG MUSE ECG Diagnosis Compared to last ECG MUSE ECG Diagnosis Atrial fibrillation has replaced sinus rhythm MUSE ECG Diagnosis MUSE ECG Diagnosis Confirmed by Leeroy Herbert ([id number]) on 11/19/2024 11:13:01 AM MUSE ECG 11/19/2024 [...] diabetes mellitus with diabetic neuropathy, unspecified whether care home insulin use (CMS/HCC) Acute cystitis without hematuria 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 documented in this encounter Admitting Diagnoses Diagnosis [...] 1 dose, On 11/20/24 at 0815, Routine Given 11/20/2024 8:05 AM [...] Inhalation, 2 times daily, First dose on [facility] 11/19/24 at 0900, Until Discontinued Given 11/22/2024 8:22 AM EDT 2 puffs Given 11/21/2024 8:07 PM EDT 2 puffs Given 11/21/2024 8:00 AM EDT 2 puffs nitrofurantoin (macrocrystal-monohydrate) (Macrobid) capsule 100 mg 100 mg, Oral, 2 times daily, First dose on [facility] 11/19/24 at 1045, Until Discontinued, [...] 11/19/24 at 0900, Until Discontinued, Routine Given 11/22/2024 [...] 40 mEq, Oral, Once, 1 dose, On Thu11/20/24 at 0845, Routine Given 11/20/2024 8:10 AM [...] 10 mL, Intravenous, As needed, Starting on Thu11/19/24 at 0340, Until Thu11/22/24 at 1858, Routine, line care Tiotropium [place] Monohydrate (Spiriva Respimat) 2.5 MCG/ACT inhaler 2 puff 2 puff, Inhalation, Daily, First dose on Thu11/19/24 at 0900, Until Discontinued Given 11/22/2024 8:22 [...] 0700, Routine 0615 (Given - Provider: Refugio Page RN) acetaminophen [...] Flor Pierre RN)2110 (Given - Provider: Refugio Page RN) 0932 (Given - Provider: Flor Pierre RN)1700 (Given - Provider: Flor Pierre RN)2106 (Given - Provider: Refugio Page RN) 0821 (Given - Provider: Luis Angel Cantu)1648 (Not Given - Provider: Luis Angel Cantu - Reason: Patient/family refused - Comment: d/t discharge) insulin glargine-yfgn 100 UNIT/ML injection 10 Units 10 Units, Subcutaneous, Nightly, First dose on 11/21/24 at 2100, Until Discontinued, Routine 210 (Given - Provider: Refugio Page RN) insulin [...] on 11/20/24 at 2100, Last dose on 11/21/24 at 1400, Routine 211 (Given - Provider: [...] on 11/21/24 at 2100, Until Discontinued, Routine 2314 (Given - Provider: Refugio Page RN - Comment: BP was low) 0822 (Given - Provider: Luis Angel Cantu) mometasone-formoterol (Dulera 100) 100-5 MCG/ACT inhaler 2 puff(Linked Group 1) 2 puff, Inhalation, 2 times daily, First dose on 11/19/24 at 0900, Until Discontinued 0814 (Given - Provider: Flor Pierre RN)211 (Given - Provider: Refugio Page RN) 0800 (Given - Provider: Flor Pierre RN)2006 (Given - Provider: Sheron Perez) 0822 (Given - Provider: Luis Angel Cantu) nitrofurantoin (macrocrystal-monohydr ate) (Macrobid) capsule 100 mg (CANCELED) 100 mg, Oral, 2 times daily, First dose on 11/19/24 at 1045, Until Discontinued, Routine 08 (Given - Provider: Flor Pierre RN) ondansetron (Zofran) injection 4 mg (COMPLETED) 4 mg, Intravenous, Once, 1 dose, On 11/20/24 at 1345, Routine 1256 (Given - Provider: Flor Pierre RN) pantoprazole (Protonix) EC tablet 40 mg 40 mg, Oral, Daily, First dose on 11/19/24 at 0900, Until Discontinued, Routine 08 (Given - Provider: Flor Pierre RN) 08 (Given - Provider: Flor Pierre RN) 0822 (Given - Provider: Luis Angel Cantu) phosphorus (K Phos Neutral) tablet 1 tablet (COMPLETED) 1 tablet, Oral, Every 8 hours, 3 doses, First dose on 11/20/24 at 0845, Last dose on Thu11/21/24 at [...] Pierre RN) 0258 (Given - Provider: Refugio Page, RN)1834 (Canceled Entry - Provider: Flor Pierre RN) 0332 (Given - Provider: Refugio Page RN)1648 (Not Given - Provider: Luis Angel Cantu - Reason: Loss of IV access) Tiotropium [place] Monohydrate (Spiriva Respimat) 2.5 MCG/ACT inhaler 2 puff(Linked Group 1) 2 puff, Inhalation, Daily, First dose on Thu11/19/24 at 0900, Until Discontinued 08 (Given - [...] 2033, Until Thu11/22/24 at 1858, Routine, wheezing 214 (Given - Provider: Sheron Perez) ondansetron (Zofran) [...] vomiting 0901 (See Alternative - Provider: Flor Pierre RN) sodium chloride 0.9 % flush 10 mL(Linked Group 2) 10 mL, Intravenous, As needed, Starting on 11/19/24 at 0340, Until Thu11/22/24 at 1858, Routine, line care Linked Groups Order Group 1: Tiotropium [place] Monohydrate (Spiriva Respimat) 2.5 MCG/ACT inhaler 2 puffJump to med 2 puff, Inhalation, Daily, First dose on Thu11/19/24 at 0900, Until Discontinued And mometasone-formoterol (Dulera 100) 100-5 MCG/ACT inhaler 2 puffJump to med 2 puff, Inhalation, 2 times daily, First dose on Thu11/19/24 at 0900, Until Discontinued Group 2: Insert peripheral IV (CANCELED) Once, On 11/19/24 at 0341, For 1 occurrence And Saline lock IV (CANCELED) Once, On 11/19/24 at 0341, For 1 occurrence And sodium chloride 0.9 % flush 10 mLJump to med 10 mL, Intravenous, Every 12 hours, First dose on Thu11/19/24 at 0345, Until Discontinued, Routine And sodium chloride 0.9 % flush 10 mLJump to med 10 mL, Intravenous, As needed, Starting on Thu11/19/24 at 0340, Until Thu11/22/24 at 1858, Routine, line care Group 3: glucose (Glutose) [...] Until Thu11/22/24 at 1858, Routine, nausea, vomiting Or ondansetron (Zofran) injection 4 mgJump to med 4 mg, Intravenous, Every 6 hours PRN, Starting on Thu11/20/24 at 0838, Until Thu11/22/24 at 1858, Routine, vomiting, nausea Or ondansetron (Zofran) 4 MG/5ML solution 4 mgJump to med 4 mg, Oral, Every 6 hours PRN, Starting on 11/20/24 at 0838, Until 11/22/24 at 1858, Routine, nausea, vomiting documented in this encounter Additional Health Concerns Infection Onset Date Last Indicated Resolved Time 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, 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 10/31/2024 Assessment Noted Time PHQ-9 Depression Total Score: 0 09/01/19 3:26 PM EDT A fall risk assessment has been complete d for the patient 11/10/2024 2:43 PM EDT A Body Mass Index follow-up plan has been documented for the patient 11/22/2024 4:27 PM EDT documented as of this encounter Care Teams Cloth Spreader Screen Printing Relationship Specialty Start Date End Date Laurie Gutierrez MD [address] [place] [address] PCP - General 12/09/23 Joshua Martínez MD [address] [place] [address] [phone] Consulting Physician Radiation Oncology 09/19/24 Paradise Pacheco, RN [facility] Registered Nurse 11/21/24 11/21/24 documented as of this encounter
--- OUTSIDE RECORDS SUMMARY | 2024-11-24 09:30 | XMS_ITS ---
Author Organization [facility] [place] Address [address] [place] [address] Care Team Providers Care Mechanical Equipment Sales Engineer Name Role Phone TRAY DEY Unavailable [phone] Tray Dey MD Unavailable Unavailable REAL SAVAGE Unavailable [phone] Allergies Allergen (clinical drug ingredient) Drug/Non Drug Allergy documented on EMR Reaction Allergy Type Onset Date Status Keflex Unknown Drug Allergy Active lisinopril lisinopril Unknown Drug Allergy Activ e meloxicam meloxicam Unknown Drug Allergy Active Reason For Referral Reason home health or [facility]. Diagnosis 1 Cellulitis of left l ower extremity (L03.116) Referral Organization [facility] Referring Provider First Name REAL Referring Provider Last Name JANETTE Referring Provider Speciality Nurse Prac titioner Referred Provider Specialty Other Medica l Care General Notes JANNETH MORALES 12/01 12:10:22 PM > [facility] P: [phone] F: [phone] (FAXED) Referral Priority Routine REASON FOR VISIT WALK IN Medications Medication SIG (Take, Route, Frequency, Duration) Notes Start Date End Date Status rOPINIRole HCl 1 mg 1 tablet orally twic e a day; Duration: 30 day(s) 08/23/2024 Not-Taking Azithromycin 250 MG take 2 tablets the first day then 1 daily Orally daily; Duration: 5 days 10/21/2024 Not-Taking Fluconazole 200 MG 1 tablet Orally daily; Duration: 7 days 11/24/2024 Active Ofloxacin 0.3 % 5 drops into affecte d ear right ear Otic Once a day; Duration: 7 days 11/24/2024 Active Bactrim DS 800-160 MG 1 tablet Orally tw ice a day; Duration: 10 days 11/24/2024 Active Accu-Chek Softclix Lancets - USE TO TEST BLOOD SUGAR 3 TIMES EACH DAY; Duration: 30 Active dexAMETHasone 2 MG 1 tablet Orally twic e a day Not-Taking Benzonatate 100 MG 1 capsule as needed Orally Three times a day; Duration: 15 days Not-Taking FreeStyle Lite Test - as directed In Vit ro daily; Duration: 30 days Active Jardiance 25 mg TAKE 1 TABLET 1 TIME EACH DAY; Duration: 90 days Not-Taking Lipitor 40 MG 1 tablet Orally Once a day; Duration: 90 days Active Alcohol Prep Pads 70 % as directed; Duration: 30 days Active Carvedilol 25 MG 1 tablet Orally Twic e a day; Duration: 30 days Active hydrOXYzine HCl 25 MG 1 tablet as needed Orally three times a day; Duration: 30 days Active Xarelto 20 MG 1 tablet with food Orally Once a day; Duration: 30 days Not-Taking FLUoxetine HCl 40 mg take 1 tablet oral once aday; Duration: 90 days Active Dexcom G7 Label Cutter - as directed 09/26/2024 Active Dexcom G7 Sensor - as directed 09/26/2024 Active tiZANidine HCl 2 MG 1 tablet at bedtime as needed Orally Once a day; Duration: 10 days 08/23/2024 Active Ferrous Sulfate 325 (65 Fe) MG 1 tablet Orally once a day; Duration: 30 days 08/23/2024 Active Dexcom G6 Transmitter - as directed; Duration: 90 days Active Ciclopirox 8 % 1 application Externally Once a day; Duration: 30 days 07/08/2024 Not-Taking Triamterene-HCTZ 37.5-25 MG 1 tablet in the morning Orally Once a day; Duration: 90 days Not-Taking Cetirizine HCl 10 mg TAKE 1 TABLET 1 AURELIA E EACH DAY daily; Duration: 90 days Active Benzonatate 100 MG 1 capsule as needed Orally Three times a day; Duration: 30 days 07/08/2024 Active Protonix 40 MG 1 tablet Orally Once a day; Duration: 90 days Active Dexcom G6 Label Cutter - as directed 02/12/2024 Active Gabapentin 600 MG 1 capsule Orally 4 times a day; Duration: 28 days oncology 12/07/2023 Active Vitamin D-[address] 25 MCG (1000 UT) 1 tablet Orally Once a day Active Insulin Lispro 100 UNIT/ML inject 15 units with meals Active Breztri Aerosphere 160-9-4.8 MCG/ACT INHALE 2 PUFFS 2 TIMES EACH DAY; Duration: 30 Active metFORMIN HCl 1000 MG 1 tablet with meal s Orally Twice a day; Duration: 30 days Active Pantoprazole Sodium 40 mg TAKE 1 TABLET 1 TIME EACH DAY; Duration: 30 Active Montelukast Sodium 10 MG 1 tablet Orally Once a day; Duration: 30 days Active Vitamin B-12 ER 1000 MCG 1 tablet Orally Once a day; Duration: 90 days Active Januvia 50 MG 1 tablet Orally Once a day; Duration: 30 days Active Calcium Carbonate Ac tive Calcium 600/Vitamin D 600-10 MG-MCG 1 tablet with a meal Orally Once a day; Duration: 30 days Active Magnesium Oxide 400 MG [...] Orally every 6 hrs 11/24/2024 Active Nystatin 217437 UNIT/ML swish and swallo w 5mL Mouth/Throat Four times a day for 39 doses 10/20/2024 Active Melatonin Active Cyanocobalamin ER 1000 MCG 1 tablet Orally Once a day 11/24/2024 Active Atorvastatin Calcium 40 MG 1 tablet Orally Once a day 11/24/2024 Active Vital Signs Temperature 98.7 degrees Fahrenheit 11/25/19 25 Blood pressure systolic 130 mm Hg 11/25/19 25 Blood pressure diastolic 88 mm Hg 025 Heart Rate 102 /min 11/24/2024 Respiratory Rate 20 /min 11/24/2024 Height 67 in 11/24/2024 Oximetry 96 % 11/24/2024 Encounters Encounter Location Date Provider Diagnosis [facility] [place] [address] [address] [place] [address] 11/24/2024 REAL HIGHLEY Cellulitis of left l ower extremity L03.116 [...] diabetes mellitus with hyperglycemia (ICD-10 - E11.65) [facility] decent control aic 6.6 in 11/24/2024 Cellulitis of right external ear (ICD-10 - H60.11) 11/24/2024 Immunocompromised patient (ICD-10 - D84.9) Plan Of Treatment Medication Medication Name Sig Start Date Stop Date Notes Fluconazole 200 MG 1 tablet Orally russel y; Duration: 7 days 11/24/2024 Ofloxacin 0.3 % 5 drops into affecte d ear right ear Otic Once a day; Duration: 7 days 11/24/2024 Bactrim DS 800-160 MG 1 tablet Orally tw ice a day; Duration: 10 days 11/24/2024 Treatment Notes Assessment Notes Cellulitis of left lower extremity pt ap pears dehydrated w dry orals. encourage 1.5L water or other juices sprite etc per day. take bactrim w a snack and 16 oz water bid. pt agrees. Type 2 diabetes mellitus with hyperglyce [facility] decent control aic 6.6 in Referrals Referral Date Details 11/24/2024 11/24/2024, home a [facility] or [facility]. Next Appt Details Follow Up: prn, Reason: Provider Name:Yamilet heath, 02/27/2025 10:30:00 AM, [address], [place], [address], Progress Notes * Teresa URBINADOB: [birth year] (63 yo F)Acc No.[id number]:11/24/2024 Progress Notes Patient: Isis Teresa REY Appointment Provider: Ian MARQUEZRICKTracy PENGJAJASHARDA :1960 A ge:63 Y S ex:Female Date:11/24/2024 Address:[address] [place] [address] [place], ANTONI [id number] Subjective: * Chief Complaints: * W ALK [...] knee, head, and thumb. she went to [facility] and was given 3 unit prbc [...] Other Systems: Review of Systems (ROS) [facility] for details. * Medical History: * [...] as needed Orally every 8 hours Nystatin 682790 UNIT/ML Suspension swish and swallow 5mL Mouth/Throat [...] tablet Orally Once a day Dexcom G6 Label Cutter - Device as directed Benzonatate 100 MG [...] tablet Orally once a day Dexcom G7 Label Cutter - Device as directed Dexcom G7 Sensor [...] needed Orally every 8 hours Taking Nystatin 883706 UNIT/ML Suspension swish and swallow 5mL Mouth/Throat [...] Orally Once a day Taking Dexcom G6 Label Cutter - Device as directed Taking Benzonatate 100 [...] Orally once a day Taking Dexcom G7 Label Cutter - Device as directed Taking Dexcom G7 [...] - Strip as directed In Vitro daily Umz-JiqwleLcbqoxovymf-WVDN 37.5-25 MG Tablet 1 tablet in the [...] * Appointment Provider: Ian SAVAGE APRN Date: 0 11/24/2024 Generated for Printing/Faxing/eTransmitting on: 01/04/2025 11:41 AM EDT History and Physical Notes * Examination [...] Referral Date Referring Provider Referred Provider Not marquez 11/24/2024 REAL SAVAGE , home health or [facility].
--- OUTSIDE RECORDS SUMMARY | 2024-11-29 10:30 | XMS_ITS | Encounter Summary ---
Author Organization [facility] Address [address] [place] [address] Care Team Providers Care Terminal Gauger Supervisor Name Role Phone Laurie Gutierrez MD Primary Care Provider [phone] Joshua Martínez MD Unavailable Sabine Morales LEATHER SCRAPER Unavailable Unavailable Reason for Visit * Reason Comments Labs * Auth/Cert (Routine) Specialty Diagnoses / Procedures Referred By Contac t Referred To Contact Diagnoses Seizures (CMS/HCC) New onset seizures in infusion clinic Nilson Jimenez MD [address] [place] [address] Phone: tel: fax: [facility] Emergency Department [address] [place] [address] Phone: tel: Referral ID Status Reason Start Date Expiration Date Visits Re quested Visits Authorized [id number] 1 1 Encounter Details Date Type Department Care Team (Latest Contact Info) Description 11/29/2024 10:30 AM EDT Clinical Support Pav CC Head, Neck & Respiratory 800 [facility], 2nd [place] [address] Extensive stage primary small cell [...] in a senior care (including now)? No 12/12/2024 CAGE ASSESSMENT Answer [...] first t laurie in the morning (EYE-SUPERVISOR PLATING AND POINT ASSEMBLY) to steady your nerves or to get [...] 1 Month) No 025 8:00 PM EDT Catrina Pierre 2. Non-Specific Active Suici radha Thoughts (Past 1 Month) No 12/07/2024 8:00 PM EDT Catrina Pierre 6. Suicidal Behavior (Lifetime) No 8:00 PM EDT Catrina Pierre documented as of this encounter Plan of Treatment Upcoming Encounters Date Type Department Care Team (Late st Contact Info) Description 01/05/2025 1:00 PM EDT Office Visit [facility] [address] [place] [address] Lia Barnes, GELATIN PLANT SUPERVISOR [address] [facility] [address] [place] [address] 01/10/2025 9:00 AM EDT Clinical Support Pav CC Head, Neck & Respiratory [address] [facility], 2nd [place] [phone] 01/10/2025 9:40 AM EDT Office Visit Pav [facility]ck [facility] Respiratory [address] [facility], 2nd [place] [address] Satnam Colvin MD [address] [facility] [address] [place] [address] 01/10/2025 12:00 PM EDT Appointment [facility] Infusion Clinic [address] [place] [address] 01/11/2025 3:30 PM EDT Appointment [facility] Infusion Clinic 1 [address] [place] [address] 01/12/2025 3:30 PM EDT Appointment [facility] Infusion Clinic 2 [address] [place] [address] 01/19/2025 9:20 AM EDT Appointment [facility] [address], 1st [place] [address] 01/19/2025 10:45 AM EDT Office Visit [facility] [address], [address]st [place] [address] Abhilash Bangura MD [address] [place] [address] 01/26/2025 4:30 PM EDT Office Visit [facility] [address] [facility] [place] [address] Lia Barnes, GELATIN PLANT SUPERVISOR [address] [facility] [address] [place] [address] 03/08/2025 1:00 PM EDT Office Visit [facility] [place] Wenceslao [address] [facility]. [address] [place] [address] Teresita Oconnell MD [address] [place] [address] documented as of this encounter [...] TSH reflex FT4 (11/29/2024 12:19 PM EDT) [facility] Thyroid Stimulating Hormone, Plasma 1.32 0.40 - 4.20 uIU/mL 11/29/2024 1:46 PM EDT [facility] Blood Venous blood specimen / Unknown Venipuncture / Unknown 11/29/2024 12:19 PM EDT 11/29/2024 12:36 PM EDT Satnam Dunne MD LAB BLOOD ORDERABLES Fi nal Result Performing Organization Address [facility] [place] [address] * (ABNORMAL) Magnesium (11/29/2024 12:19 PM EDT) [facility] Magnesium, Plasma 0.8(LL) 1.9 - 2.4 mg/dL 11/29/2024 1:46 PM EDT [facility] Blood Venous blood specimen / Unknown Venipuncture / Unknown 11/29/2024 12:19 PM EDT 11/29/2024 12:36 PM EDT Satnam Dunne MD LAB BLOOD ORDERABLES Fi nal Result Performing Organization Address [facility] [place]/ZIP Co de Phone Number [facility] [address] [place] [address] * (ABNORMAL) Comprehensive metabolic panel (11/29/2024 12:19 PM EDT) Glucose, Plasma 287(H) 74 - 99 mg/dL 11/29/2024 1:46 PM EDT [facility] BUN, Plasma 17 8 - 23 mg/dL 11/29/2024 1:46 PM EDT [facility] Creatinine, Plasma 2.81(H) 0.60 - 1.10 mg/dL 11/29/2024 1:46 PM EDT [facility] BUN/Creatinine Ratio 6 11/29/2024 1:46 PM EDT [facility] Sodium, Plasma 139 136 - 145 mmol/L 11/29/2024 1:46 PM EDT [facility] Potassium, Plasma 4.6 3.6 - 4.9 mmol/L 11/29/2024 1:46 PM EDT [facility] Comment:Hemolyzed, result ma y be falsely increased. Chloride, Plasma 102 97 - 107 mmol/L 11/29/2024 1:46 PM EDT [facility] CO2, Plasma 22 22 - 29 mmol/L 11/29/2024 1:46 PM EDT [facility] Anion Gap 15 6 - 16 mmol/L 11/29/2024 1:46 PM EDT [facility] Total Calcium, Plasma 7.7(L) 8.9 - 10.2 mg/dL 11/29/2024 1:46 PM EDT [facility] Total Protein 6.3 6.3 - 7.9 g/dL 11/29/2024 1:46 PM EDT [facility] Albumin, Plasma 3.0(L) 3.5 - 5.2 g/dL 11/29/2024 1:46 PM EDT [facility] AST, Plasma 33 10 - 35 U/L 11/29/2024 1:46 PM EDT [facility] Comment:Hemolyzed, result ma y be falsely increased. ALT, Plasma 17 10 - 35 U/L 11/29/2024 1:46 PM EDT [facility] Alkaline Phosphatase, Plasma 122 46 - 142 U/L 11/29/2024 1:46 PM EDT [facility] Total Bilirubin, Plasma 0.5 0.2 - 1.1 mg/dL 11/29/2024 1:46 PM EDT [facility] eGFRcr 18.2 mL/min/1.7 3m*2 11/29/2024 1:46 PM EDT [facility] Comment:Reported eGFRcr in m L/min/1.73m2 is based the CKD-EPI 2020 equation that does not use a race coefficient. Blood Venous blood specimen / Unknown Venipuncture / Unknown 11/29/2024 12:19 PM EDT 11/29/2024 12:36 PM EDT Satnam Dunne MD LAB BLOOD ORDERABLES Fi nal Result [facility] [address] [place] [address] * (ABNORMAL) CBC and differential (11/29/2024 12:19 PM EDT) WBC Count 9.83 3.70 - 10.30 10*3/uL LAB HEMATOLOGY METHOD 11/29/2024 1:00 PM EDT [facility] RBC Count 2.67(L) 3.90 - 5.20 10*6/uL LAB HEMATOLOGY METHOD 11/29/2024 1:00 PM EDT [facility] HGB 7.7(L) 11.2 - 15.7 g/dL LAB HEMATOLOGY METHOD 11/29/2024 1:00 PM EDT [facility] HCT 25.9(L) 34.0 - 45.0 % LAB HEMATOLOGY METHOD 11/29/2024 1:00 PM EDT [facility] Platelet Count 166 155 - 369 10*3/uL LAB HEMATOLOGY METHOD 11/29/2024 1:00 PM EDT [facility] MCV 97 79 - 98 fL LAB HEMATOLOGY METHOD 11/29/2024 1:00 PM EDT [facility] MCH 28.8 26.0 - 32.0 pg LAB HEMATOLOGY METHOD 11/29/2024 1:00 PM EDT [facility] MCHC 29.7(L) 30.7 - 35.5 g/dL LAB HEMATOLOGY METHOD 11/29/2024 1:00 PM EDT [facility] RDW 19.9(H) 11.5 - 14.5 % LAB HEMATOLOGY METHOD 11/29/2024 1:00 PM EDT [facility] MPV 9.9 8.8 - 12.5 fL LAB HEMATOLOGY METHOD 11/29/2024 1:00 PM EDT [facility] nRBC 0.0 <=0.0 per 100 WBCs LAB HEMATOLOGY METHOD 11/29/2024 1:00 PM EDT [facility] Differential Type Automated LAB HEMATOLOGY METHOD 11/29/2024 1:00 PM EDT [facility] Neutrophils % 83 % LAB HEMATOLOGY METHOD 11/29/2024 1:00 PM EDT [facility] Lymphocytes % 8 % LAB HEMATOLOGY METHOD 11/29/2024 1:00 PM EDT [facility] Monocytes % 6 % LAB HEMATOLOGY METHOD 11/29/2024 1:00 PM EDT [facility] Eosinophils % 2 % LAB HEMATOLOGY METHOD 11/29/2024 1:00 PM EDT [facility] Basophils % 0 % LAB HEMATOLOGY METHOD 11/29/2024 1:00 PM EDT [facility] Immature Granulocytes % 1 % LAB HEMATOLOGY METHOD 11/29/2024 1:00 PM EDT [facility] Neutrophils Absolute 8.18(H) 1.60 - 6.10 10*3/uL LAB HEMATOLOGY METHOD 11/29/2024 1:00 PM EDT [facility] Lymphocytes Absolute 0.75(L) 1.20 - 3.90 10*3/uL LAB HEMATOLOGY METHOD 11/29/2024 1:00 PM EDT [facility] Monocytes Absolute 0.55 0.30 - 0.90 10*3/uL LAB HEMATOLOGY METHOD 11/29/2024 1:00 PM EDT [facility] Eosinophils Absolute 0.20 0.00 - 0.50 10*3/uL LAB HEMATOLOGY METHOD 11/29/2024 1:00 PM EDT [facility] Basophils Absolute 0.04 0.00 - 0.10 10*3/uL LAB HEMATOLOGY METHOD 11/29/2024 1:00 PM EDT [facility] Immature Granulocytes Absolute 0.11(H) 0.00 - 0.06 10*3/uL LAB HEMATOLOGY METHOD 11/29/2024 1:00 PM EDT [facility] Blood Venous blood specimen / Unknown Venipuncture / Unknown 11/29/2024 12:19 PM EDT 11/29/2024 12:50 PM EDT Narrative [facility] - 11/29/2024 1:00 PM EDT Therapeutic decision making should be based on absolute values, rather than percentages. 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, HAND CLOTH EXAMINER 10/26/2024 10/31/2024 COVID-19 Rule-Out 11/30/2024 11/30/2024 11/30/2024 4:02 AM EDT Respiratory Rule-Out 11/30/2024 11/30/2024 025 5:05 AM EDT Meningitis Rule-Out 12/06/2024 12/06/2024 12/07/19 8:29 PM EDT Assessment Noted Time PHQ-9 Depression Total Score: 0 09/01/19 3:26 PM EDT A fall risk assessment has been complete d for the patient 11/29/2024 1:14 PM EDT A Body Mass Index follow-up plan has been documented for the patient 12/10/2024 5:08 PM EDT documented as of this encounter Care Teams Terminal Gauger Supervisor Relationship Specialty Start Date End Date Laurie Gutierrez MD [address] [place] [id number] PCP - General 12/09/23 Joshua Martínez MD [address] [address] Consulting Physician Radiation Oncology 09/19/24 Sabine Morales LPN TCM Nurse 11/23/24 12/23/24 documented as of this encounter
--- OUTSIDE RECORDS SUMMARY | 2024-11-29 11:00 | XMS_ITS | Encounter Summary ---
Author Organization Healthcare Address [address] [place] [address] Care Team Providers Care Accounts Receivable Clerk Name Role Phone Laurie Gutierrez MD Primary Care Provider [phone] Joshua Martínez MD Unavailable Sabine Morales LPN Unavailable Unavailable Reason for Visit * Reason Comments Follow-up * Auth/Cert (Routine) Specialty Diagnoses / Procedures Referred By Contac t Referred To Contact Diagnoses Seizures (CMS/HCC) New onset seizures in infusion clinic Nilson Jimenez MD [address] [place] [address] Phone: tel: fax: [facility] Emergency Department [address] [place] [address] Phone: tel: Referral ID Status Reason Start Date Expiration Date Visits Re quested Visits Authorized [id number] 1 1 Encounter Details Date Type Department Care Team (Late st Contact Info) Description 11/29/2024 11:00 AM EDT Office Visit [facility] Head, Neck & Respiratory [address] [facility], [address]nd [place] [address] Satnam Colvin MD [address] [facility] [address] [place] [address] Seizures (CMS/HCC) (Primary Dx); Extensive stage primary small cell carcinoma of lung; Encounter for antineoplastic chemotherapy; Chemotherapy-induced neutropenia (CMS/HCC); Brain mass; Neoplastic (malignant) related fatigue; SDH (subdural hematoma) (CMS/HCC); Right leg weakness Social History Tobacco Use Types Packs/Day Years [...] drink first 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) to 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 nerves or to [...] Sign Reading Time Taken Comments Blood Pressure 108/66 11/29/2024 11:15 AM EDT Pulse 97 11/29/2024 11:15 AM EDT Temperature 37.3 C (99.1 F) 11/29/2024 11:15 AM EDT Respiratory Rate 18 11/29/2024 11:15 AM EDT Oxygen Saturation 95% 11/29/2024 11:15 AM EDT Inhaled Oxygen Concentration - - Weight 122 kg (268 lb 11.9 oz) 11/29/2024 11:15 AM EDT Height 170.2 cm (5' 7.01 ) 11/29/2024 11:15 AM E DT Body Mass Index 42.08 11/29/2024 11:15 AM EDT documented in this encounter Functional [...] Date of Assessment Author No Risk Indicated 11/29/2024 4:53 PM EDT Carmencita Harrington RN * Question Answer Date of Assessment Author 1. Wish to be (Past 1 Month) No 025 4:53 PM EDT Carmencita Harrington RN 2. Non-Specific Active Suici radha Thoughts (Past 1 Month) No 11/29/2024 4:53 PM EDT Faith Harrington sa, RN 6. Suicidal Behavior (Lifetime) No 5 4:53 PM EDT Carmencita Harrington RN documented as of this encounter Miscellaneous Notes * Progress Notes - Satnam Colvin MD - 11/29/2024 11:00 AM EDT Medical Oncology Clinic Note Patient Name: Teresa Rivera Date of : 1960 64 y.o. Referring Physician:Satnam Colvin MD [address] [place] [phone] Encounter Date: 11/29/2024 Chief Complaint: Chief Complaint Patient presents with [...] Interval history Patient returns to clinic. She again had 2 hospitalizations since last visit. Since hospital discharge she has been doing better. But she has noted some right lower extremity spasms and happened in the clinic as well. Later in the infusion room she had seizures. She was also found to have acute kidney injury and sent to the ER. Today she reports fatigue. Her bottom is sore. No headaches, blurry or double vision. No significant nausea or vomiting. No worsening shortness of breath. No chest pain. No fevers or chills. Current Treatment Regimen: Carbo etoposide with whole-brain radiation Current Treatment Plan History: Carbo/Etop/Atezo C1: 10/04-10/06/24 Oncology History: - initially diagnosed with [id number], stage IIIA limited stage of the right [...] days of antibiotics improved and discharged home. 11/15/2024 to 11/16/2024 -hospital admission after fall. Found to have a small subdural and subarachnoid hemorrhage. 11/19/2024-11/22/2024- Found to be in Afib with RVR. Suspected UTI sepsis. ( Fever on 11/18) metoprolol was changed to 50 twice daily short-acting Past Medical, Surgical, Family and Social History: Past Medical History[1] Surgical History[2] Family History[3] Social History[4] Allergies: Cephalexin, Lisinopril, and Meloxicam Medications: Current Medications[5] Review of Systems: A comprehensive 14 point review of systems was performed, noted to be negative with the pertinent positives documented in the HPI section of this note. Vital Signs: Visit Vitals BP 108/66 (BP Location: Right arm) Pulse 97 Temp 37.3 ??C (99.1 ??F) (Oral) Resp 18 Physical Examination: GENERAL: no acute distress. SKIN: . No rashes or lesions. EYES: conjunctiva clear, ENT: intact, no apparent injury HEAD/NECK: neck supple RESPIRATORY: non-labored respirations CARDIOVASCULAR: no peripheral edema GASTROINTESTINAL: soft, non-tender, non-distended, MUSCULOSKELETAL: No significant muscle wasting noted, muscle spasms noted NEUROLOGICAL: alert and oriented x3, no focal deficits PSYCHOLOGICAL: Normal mood. Labs, Imaging, Pathology: Lab Results Component Value Date WBC 6.07 11/22/2024 RBC 2.45 (L) 11/22/2024 HGB 7.3 (L) 11/22/2024 HCT 23.3 (L) 11/22/2024 MCV 95 11/22/2024 MCV 93 08/25/2013 MCHC 31.3 11/22/2024 RDW 20.4 (H) 11/22/2024 PLT 32 (L) 11/22/2024 MPV 11.6 11/22/2024 EOS 3 08/25/2013 Lab Results Component Value Date BUN 6 (L) 11/22/2024 CL 104 11/22/2024 NA 141 11/22/2024 K 3.5 (L) 11/22/2024 CA 9.6 08/25/2013 TP 6.4 11/19/2024 AST 12 11/19/2024 ALT 19 11/19/2024 I visualized the recent imaging and discussed [...] Assessment and Plan: Teresa Rivera is a 64 y.o. female with PMH of atrial flutter [...] Status post broad-spectrum antibiotics and improved. - Hold chemo Sent patient to ER # Seizures Suspected brain mets. Will need emergent MRI. # Chemotherapy toxicity -febrile neutropenia-sepsis with acute [...] images, labs, coordinating care and, 20 minutes [id number] encounter. MD GIGI [facility] HEAD, NECK & RESPIRATORY [address] [facility] [phone] [facility]. [1] Past Medical History: Diagnosis Date Brain tumor (CMS/HCC) Chemotherapy-induced nausea and vomiting 08/28/2023 Heart failure Personal history of other diseases of the circulatory system History of essential hypertension Personal history of other diseases of the musculoskeletal system and connective tissue History of osteoarthritis Personal history of other endocrine, nutritional and metabolic disease History of type 2 diabetes mellitus Pneumonia [2] Past Surgical History: Procedure Laterality Date BRAIN SURGERY TUBAL LIGATION N/A Tubal Ligation from [employer] TYMPANOSTOMY TUBE PLACEMENT N/A Ear Surgery Eustachian Tube from [employer] [3] Family History Problem Relation Name Age of Onset No Known Problems Mother No Known Problems Father Diabetes Other Fibromyalgia Other [4] Social History Tobacco Use Smoking status: Former Current packs/day: 0.00 Average packs/day: 1.5 packs/day for 48.4 years (72.6 ttl pk-yrs) Types: Cigarettes Start date: 1975 Quit date: 10/17/2023 Years since quittin.1 Passive exposure: Past Smokeless tobacco: Never Vaping Use Vaping status: Never Used Substance Use Topics Alcohol use: Never Drug use: Never [5] Current Outpatient Medications: acetaminophen (Tylenol) 325 MG tablet, Take 2 tablets by mouth every 6 hours. Under [place] law, monthly prescriptions (30 days) can be refilled at 25 days and three-month prescriptions (90 days) at80 days. Please contact the insurance company with questions if refills are denied. (Patient takingdifferently: Take 2 tablets by mouth every 6 hours.), Disp: 100 tablet, Rfl: 0 atorvastatin (Lipitor) 40 MG tablet, Take 1 tablet by mouth every evening., Disp: , Rfl: Bactrim DS 800-160 MG tablet, every 12 hours., Disp: , Rfl: Ujslrfc-Utcmqvvrpis-Bjbxckxptz (Breztri Aerosphere) 160-9-4.8 MCG/ACT aerosol, Inhale 2 [...] mouth daily with breakfast., Disp: , Rfl: fluconazole (Diflucan) 200 MG tablet, TAKE 1 TABLET 1 TIME EACH DAY FOR 7 DAYS, Disp: , Rfl: FLUoxetine (PROzac) 40 MG capsule, Take 1 capsule by mouth daily., Disp: , Rfl: furosemide (Lasix) 40 MG tablet, TAKE 1 TABLET BY MOUTH ONCE DAILY FOR LEG SWELLLING, Disp: , Rfl: gabapentin (Neurontin) 600 MG tablet, Take 1 tablet by mouth 4 times a day., Disp: 120 tablet, Rfl:0 glucose (Trueplus Glucose) 4 g chewable tablet, Chew 4 tablets as needed for low blood sugar., Disp: 50 tablet, Rfl: 12 hydrOXYzine HCl (Atarax) 25 MG tablet, Take 1 tablet by mouth 3 times a day as needed., Disp: , Rfl: lidocaine (Xylocaine) 5 % ointment, Apply 2 times a day., Disp: 30 g, Rfl: 0 magic butt balm (Cholestyramine) CMPD (Magic Butt), Apply 1 Application topically every 1 hour as needed for diaper rash., Disp: 80 g, Rfl: 0 magic mouthwash BLM (FIRST-Mouthwash) suspension, Swish and spit 15 mL 4 times a day before meals and nightly for 3 days. (Patient taking differently: Swish and spit 15 mL 4 times a day as needed formucositis.), Disp: 180 mL, Rfl: 0 magnesium oxide (Mag-Ox) 400 MG tablet, Take 1 tablet by mouth 2 times a day. Hold for diarrhea, Disp: 60 tablet, Rfl: 1 melatonin tablet, Take 2 tablets by mouth nightly., Disp: , Rfl: metFORMIN (Glucophage) 1000 MG tablet, Take 1 tablet by mouth 2 times a day with meals., Disp: , Rfl: metoprolol tartrate (Lopressor) 50 MG tablet, Take 1 tablet by mouth 2 times a day., Disp: 60 tablet, Rfl: 0 montelukast (Singulair) 10 MG tablet, Take 1 tablet by mouth nightly., Disp: , Rfl: mupirocin (Bactroban) 2 % ointment, Apply on head 2 times a day (Patient taking differently: Apply 1 Application topically 2 times a day. Apply on head 2 times a day), Disp: 22 g, Rfl: 0 nystatin (Mycostatin) 391659 UNIT/GM powder, Apply on bottom 2 times a day, Disp: 30 g, Rfl: 0 ofloxacin (Floxin) 0.3 % otic solution, 1 (one) time each day at the same time., Disp: , Rfl: ondansetron (Zofran) 8 MG [...] insulin pen., Disp: 100 each, Rfl: 11 Probiotic, Lactobacillus, capsule, Take 1 capsule by mouth daily., Disp: 30 capsule, Rfl: 1 prochlorperazine (Compazine) 10 MG tablet, Take 1 tablet by mouth every 6 hours as needed for nausea or vomiting., Disp: 30 tablet, Rfl: 3 [Paused] rivaroxaban (Xarelto) 20 MG tablet, Take 1 tablet by mouth 1 time each day with dinner. Take with food., Disp: , Rfl: [Paused] rOPINIRole (Requip) 1 MG tablet, Take 1 tablet by mouth 2 times a day., Disp: , Rfl: SITagliptin (Januvia) 50 MG tablet, Take 1 tablet by mouth every morning., Disp: , Rfl: spironolactone (Aldactone) 25 MG tablet, Take 1 tablet by mouth., Disp: , Rfl: [Paused] triamterene-hydrochlorothiazide (Maxzide-25) 37.5-25 MG tablet, Take 1 tablet by mouth every morning., Disp: , Rfl: Vitamin B-12 ER 1000 MCG tablet controlled-release, Take 1 tablet by mouth Daily., Disp: , Rfl: benzonatate (Tessalon) 100 MG capsule, Take 1 capsule by mouth 3 times a day as needed for cough. Do not crush or chew. (Patient not taking: Reported on 11/29/2024), Disp: 20 capsule, Rfl: 0 * Progress Notes - Rupa De Santiago, PharmD - 11/29/2024 11:00 AM EDT Pharmacy Hematology/Oncology Treatment Note Teresa Rivera is a 64 y.o. female with ES SCLC Cancer Staging No matching staging information was found for the patient. . Study Patient: no Treatment Plan reviewed for Carboplatin/Etoposide/Atezolizumab every 21 days. [x] Follow-Up Clinical Review for Cycle 3 Days 1-3 - ON HOLD [] Follow-Up Clinical Review for Continuous Oral [...] WBRT completed 11/07. Labs appropriate for treatment. 11/29/24: Ms. Rivera was admitted 11/19-11/22 for A Fib with RVR and sepsis secondary to UTI. 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 Creatinine today is 2.81 from 0.61 1 week ago, and Mg is 0.8. Planned for re-draw CMP and give 1L fluids and 4g Mg IV, but in infusion, patient became convulsive and non- responsive, so she will go straight to the ED for evaluation and HOLD cycle 3. Today's Wt: Wt Readings from Last 1 Encounters: 11/29/24 121 kg (267 lb 6.7 oz) Dosing Wt: 118 kg Dosing Ht: 170.2 cm DosingBSA: 2.26 m2 Recent Labs: Lab Results Component Value Date WBC 9.83 11/29/2024 HGB 7.7 (L) 11/29/2024 HCT 25.9 (L) 11/29/2024 MCV 97 11/29/2024 PLT 166 11/29/2024 Lab Results Component Value Date GLUCOSE 287 (H) 11/29/2024 CALCIUM 7.7 (L) 11/29/2024 NA 139 11/29/2024 K 4.6 11/29/2024 CO2 22 11/29/2024 CL 102 11/29/2024 BUN 17 11/29/2024 CREATININE 2.81 (H) 11/29/2024 Lab Results Component Value Date ALT 17 11/29/2024 AST 33 11/29/2024 ALKPHOS 122 11/29/2024 BILITOT 0.5 11/29/2024 Lab Results Component Value Date NEUTROABS 8.18 (H) 11/29/2024 Lab Results Component Value Date MG 0.8 (LL) 11/29/2024 Lab Results Component Value Date TSH 1.32 11/29/2024 Lab Results Component Value Date URINEPRO Negative 11/19/2024 Vitals: Visit Vitals BP 108/66 (BP Location: Right arm) Pulse 97 Temp 37.3 ??C (99.1 ??F) (Oral) Resp 18 Other Relevant Monitoring: for carboplatin: AdjBW (BMI >25): 85.7 kg SCr: Results from last 7 days Lab Units 11/29/24 1219 CREATININE mg/dL 2.81* eCrCl: ml/min Treatment/Therapy Plan: Carboplatin AUC 5 IV Day 1 Etoposide 100 mg/m2 (220 mg) IV Days 1-3 Atezolizumab 1875 mg subcutaneous Day 1 + Neulasta 6 mg subcutaneous OBI Day 3 [x] No dose adjustments made Current Treatment Plan History: Carbo/Etop/Atezo C1: 10/04-10/06/24 C2: 11/08-11/10/24 (delayed d/t WBRT and admission, Neulasta added) C3: on hold d/t JORGE and seizure activity Prior Treatment History: Craniotomy 08/31/24 WBRT 10/24-11/07/24 Plan: Patient will return to clinic after hospital discharge. Will follow-up at that time. Pharmacist Attestation: Rupa De Santiago, PharmD, [facility] Clinical Oncology Pharmacist documented in this encounter Plan of Treatment Upcoming Encounters Date Type Department Care Team ([facility] st Contact Info) Description 01/05/2025 1:00 PM EDT Office Visit [facility] [address] [place] [address] Lia Barnes, OBSERVATION ASSISTANT [address] [facility] [address] [place] [address] 01/10/2025 9:00 AM EDT Clinical Support Pav [facility] Head, Neck & Respiratory [address] [facility], [address]nd [place] [address] 01/10/2025 9:40 AM EDT Office Visit [facility] Head, Neck & Respiratory [address] [facility], [address]nd [place] [address] Satnam Colvin MD [address] [place] [address] 01/10/2025 12:00 PM EDT Appointment [facility] Infusion Clinic [address] [place] [address] 01/11/2025 3:30 PM EDT Appointment [facility] Infusion Clinic [address] [place] [address] 01/12/2025 3:30 PM EDT Appointment [facility] Infusion Clinic [address] [place] [address] 01/19/2025 9:20 AM EDT Appointment [facility] Radiology [address] [place] [address] 01/19/2025 10:45 AM EDT Office Visit [place] [facility] [address], [address] [place] [address] Abhilash Bangura MD [address] [place] [address] 01/26/2025 4:30 PM EDT Office Visit [facility] [address] [place] [address] Lia Barnes, OBSERVATION ASSISTANT [address] [facility] [address] [place] [address] 03/08/2025 1:00 PM EDT Office Visit [facility] [address] [place] [address] Teresita Oconnell MD [address] [place] [address] documented as of this encounter Visit Diagnoses Diagnosis Seizures (CMS/HCC)- Primary Other convulsions Extensive stage primary small cell carcinoma of lung Encounter for antineoplastic chemotherapy Chemotherapy-induced neutropenia (CMS/HCC) Drug induced neutropenia Brain mass Unspecified condition of brain Neoplastic (malignant) related fatigue SDH (subdural hematoma) (CMS/HCC) Subdural hemorrhage Right leg weakness Muscle weakness (generalized) documented in this encounter Additional Health Concerns Infection Onset Date Last Indicated Resolved Time 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, 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 10/26/2024 10/31/2024 Assessment Noted Time PHQ-9 Depression Total Score: 0 09/01/19 3:26 PM EDT A fall risk assessment has been complete d for the patient 11/29/2024 1:14 PM EDT A Body Mass Index follow-up plan has been documented for the patient 12/10/2024 5:08 PM EDT documented as of this encounter Care Teams Accounts Receivable Clerk Relationship Specialty Start Date End Date Laurie Gutierrez MD [address] [place] [address] PCP - General 12/09/23 Joshua Martínez MD [address] [place] [phone] Consulting Physician Radiation Oncology 09/19/24 Sabine Morales LPN TCM Nurse 11/23/24 12/23/24 documented as of this encounter
--- OUTSIDE RECORDS SUMMARY | 2024-11-29 12:30 | XMS_ITS | Encounter Summary ---
Author Organization Healthcare Address [address] [place] [address] Care Team Providers Care Concert Promoter Name Role Phone Laurie Gutierrez MD Primary Care Provider [phone] Joshua Martínez MD Unavailable Sabine Morales LPN Unavailable Unavailable Reason for Visit * Auth/Cert (Routine) Specialty Diagnoses / Procedures Referred By Contnida t Referred To Contact Diagnoses Seizures (CMS/FORMERLY [facility]) New onset seizures in infusion clinic Nilson Jimenez MD [address] [place] [address] Phone: tel: fax: [facility] [address] [place] [address] Phone: tel: Referral ID Status Reason Start Date Expiration Date Visits Re quested Visits Authorized [id number] 1 1 Encounter Details Date Type Department Care Team (Latest Contact Info) Description 11/29/2024 12:30 PM EDT - 11/29/2024 3:10 PM EDT Hospital Encounter [facility] [address] [place] [address] Extensive stage primary small cell [...] living in a residential (including now)? No 12/12/2024 CAGE ASSESSMENT Answer [...] drink first t laurie in the morning (EYE-FUSELAGE FRAMER) to steady your nerves or to get [...] Sign Reading Time Taken Comments Blood Pressure 132/81 11/29/2024 2:44 PM EDT Pulse 107 11/29/2024 2:44 PM EDT Temperature 37.6 C (99.6 F) 11/29/2024 1:16 PM EDT Respiratory Rate 18 11/29/2024 2:44 PM EDT Oxygen Saturation 95% 11/29/2024 2:44 PM EDT Inhaled Oxygen Concentration - - Weight 121 kg (267 lb 6.7 oz) 11/29/2024 1:16 PM EDT Height 170.2 cm (5' 7 ) 11/29/2024 1:16 PM EDT Body Mass Index 41.88 11/29/2024 1:16 PM EDT documented in this encounter Functional [...] Catrina Pierre documented as of this encounter Medications at Time of Discharge acetaminophen (Tylenol) 325 MG tablet Take 2 tablets by mouth every 6 hours. Under [place] law, monthly prescriptions (30 days) can be refilled at 25 days and three-month prescriptions (90 days) at 80 days. Please contact the insurance company with questions if refills are denied. 100 tablet 5 atorvastatin (Lipitor) 40 MG tablet Take 1 tablet by mouth every evening. Budeson-Glycopyrrol -Formoterol (Breztri Aerosphere) 160-9-4.8 MCG/ACT aerosol Inhale 2 puffs 2 (two) times a day. Calcium Carb-Cholecalcifero l 600-10 MG-MCG tablet Take 1 tablet by mouth daily. cetirizine (ZyrTEC) 10 MG tablet Take 1 tablet by mouth daily. ferrous sulfate 325 (65 Fe) MG tablet Take 1 tablet by mouth daily with breakfast. FLUoxetine (PROzac) 40 MG capsule Take 1 capsule by mouth daily. gabapentin (Neurontin) 600 MG tablet Take 1 tablet by mouth 4 times a day. 120 tablet 5 glucose (Trueplus Glucose) 4 g chewable tablet Chew 4 tablets as needed for low blood sugar. 50 tablet 12 5 hydrOXYzine HCl (Atarax) 25 MG tablet Take 1 tablet by mouth 3 times a day as needed. insulin glargine (Lantus SoloStar) 100 UNIT/ML injection pen Inject 25 Units under the skin nightly. metFORMIN (Glucophage) 1000 MG tablet Take 1 tablet by mouth 2 times a day with meals. montelukast (Singulair) 10 MG tablet Take 1 tablet by mouth nightly. NovoLOG FLEXPEN 100 UNIT/ML injection pen Sliding scale three times a day with corrections and meals; BS 150-199=2units; BS 200-249=4units; BS 250-229=6units; 300-349=8 units; 350-399=10 units; anything greater than 399=12units max of 36units daily nystatin (Mycostatin) 461300 UNIT/GM powder Apply on bottom 2 times a day 30 g 5 ondansetron ODT (Zofran-ODT) 4 MG disintegrating tablet Dissolve 1 tablet on the tongue every 6 hours as needed for nausea or vomiting. 20 tablet 5 pantoprazole (Protonix) 40 MG EC tablet Take 1 tablet by mouth daily. Do not crush, chew, or split. pen needle, diabetic 31G X 5 MM misc Use as directed with insulin pen. 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 30 tablet 3 5 rivaroxaban (Xarelto) 20 MG tablet Take 1 tablet by mouth 1 time each day with dinner. Take with food. SITagliptin (Januvia) 50 MG tablet Take 1 tablet by mouth every morning. triamterene-hydroch lorothiazide (Maxzide-25) 37.5-25 MG tablet Take 1 tablet by mouth every morning. Vitamin B-12 ER 1000 MCG tablet controlled-release Take 1 tablet by mouth Daily. Bactrim DS 800-160 MG tablet every 12 hours. 5 12/11/19 25 benzonatate (Tessalon) 100 MG capsule Take 1 capsule by mouth 3 times a day as needed for cough. Do not crush or chew. 20 capsule 5 12/01/19 25 calcium carbonate (Tums) 500 MG chewable tablet Chew 1 tablet 4 times a day as needed for indigestion or heartburn. 12/17/19 25 carvedilol (Coreg) 25 MG tablet take 1 tablet 2 times each day 12/11/19 25 empagliflozin (Jardiance) 25 MG take 1 tablet 1 time each day 12/11/19 25 estradiol (Estrace) 0.1 MG/GM vaginal cream Insert 2 g into the vagina daily. 12/17/19 25 fluconazole (Diflucan) 200 MG tablet TAKE 1 TABLET 1 TIME EACH DAY FOR 7 DAYS 5 12/11/19 25 furosemide (Lasix) 40 MG tablet TAKE 1 TABLET BY MOUTH ONCE DAILY FOR LEG SWELLLING 5 12/23/19 25 levETIRAcetam (Keppra) 1000 MG tablet Take 1 tablet by mouth 2 times a day. 60 tablet 5 5 01/04/20 25 levETIRAcetam (Keppra) 500 MG tablet Take 2 tablets by mouth 2 times a day. 60 tablet 5 5 12/11/19 25 lidocaine (Xylocaine) 5 % ointment Apply 2 times a day. 30 g 5 12/17/19 25 losartan (Cozaar) 25 MG tabletIndications:H ypertension Take 1 tablet by mouth daily. 12/11/19 25 magic butt balm (Cholestyramine) CMPD (Magic Butt) Apply 1 Application topically every 1 hour as needed for diaper rash. 80 g 5 12/11/19 25 magic mouthwash BLM (FIRST-Mouthwash) suspension Swish and spit 15 mL 4 times a day before meals and nightly for 3 days. 180 mL 5 12/23/19 25 magnesium oxide (Mag-Ox) 400 MG tablet Take 1 tablet by mouth 2 times a day. Hold for diarrhea 60 tablet 1 5 01/03/20 25 melatonin tablet Take 2 tablets by mouth nightly. 12/17/19 25 metoprolol tartrate (Lopressor) 25 MG tablet Take 1 tablet by mouth 3 times a day. 90 tablet 5 5 12/23/19 25 metoprolol tartrate (Lopressor) 50 MG tablet Take 1 tablet by mouth 2 times a day. 60 tablet 5 12/11/19 25 mupirocin (Bactroban) 2 % ointment Apply on head 2 times a day 22 g 5 12/17/19 25 ofloxacin (Floxin) 0.3 % otic solution 1 (one) time each day at the same time. 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 Take on Day 4 of cycle and then take PRN 30 tablet 5 5 12/11/19 25 polyethylene glycol (Miralax) 17 g packet Take 17 g by mouth 2 times a day as needed (constipation). 60 packet 5 5 12/23/19 25 Probiotic, Lactobacillus, capsule Take 1 capsule by mouth daily. 30 capsule 1 5 12/11/19 rOPINIRole (Requip) 1 MG tablet Take 1 tablet by mouth 2 times a day. 12/17/19 spironolactone (Aldactone) 25 MG tablet Take 1 tablet by mouth. 5 12/11/19 documented as of this encounter Miscellaneous Notes * Addendum Note - Robbie Rosas APRN - 11/29/2024 12:30 PM EDTEncounter addended by: Robbie Rosas APRN on: 11/29/2024 6:45 PM Actions taken: Clinical Note Signed * Progress Notes - Robbie Rosas APRN - 11/29/2024 12:30 PM EDT Medical Oncology Interim Summary Teresa Rivera 11/29/2024 Teresa Rivera is a 64 y.o. 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 She presents to infusion clinic for C3D1 Carboplatin / Etoposide daily x3 / Atezolizumab Every 21 Days. Received message from produce assistant stating PT was convulsing, w/ bladder incontinence. PT was convulsing and non-responsive during the episode. No hx of sz. VS BP 148/75, HR tachyO2 is good, placed on 4L NC. PT is postictal and not currently convulsing. EMS contact by infusion CN. [facility] notified and report given to [facility]. Arrival to infusion suite was followed by EMS and PT transported by EMS to JOAO Rosas APRN, CHEMICAL DEPENDENCY THERAPIST-C Division of Medical Oncology [facility] Vital Signs Temp: [37.3 ??C (99.1 ??F)-37.7 ??C (99.9 ??F)] 37.7 ??C (99.9 ??F) Heart Rate: [95-150] 103 Resp: [18-20] 19 BP: (108-148)/(66-82) 118/75 SpO2: [92 %-99 %] 92 % Labs: CBC WBC 9.83 Hb 7.7 (L) Plt 166 Hct 25.9 (L) ANC 8.18 (H) Lab Results Component Value Date INR 1.7 (H) 11/15/2024 Lab Results Component Value Date APTT 28 11/15/2024 BMP Na 139 Cl 102 BUN 17 Glu 193 (H) K 4.6 Co2 19 (L) Cr 2.82 (H) EGFR 18.2 CA 7.7 (L) LFTs AST 29 AlkPhos 119 T Prot 6.5 ALT 18 T Bili 0.4 Alb 2.9 (L) Lab Results Component Value Date MG 0.8 (LL) 11/29/2024 Lab Results Component Value Date PHOS 2.1 (L) 11/20/2024 Lab Results Component Value Date TSH 1.32 11/29/2024 FREET4 1.3 11/19/2023 No results found for: CEA , CA199 , AFP Current Treatment Plan: CARBOplatin / Etoposide Daily x 3 / Atezolizumab Every 21 Days [facility] History Extensive stage primary small cell carcinoma of lung 09/09/2024 Initial Diagnosis Extensive stage primary small cell carcinoma of lung 10/04/2024 - Chemotherapy pegfilgrastim (Neulasta) 6 MG/0.6ML on-body injector 6 mg, 6 mg, Subcutaneous, Once, 1 of 3 cycles Administration: 6 mg (11/10/2024) Aimxlpqadmid-Bcfkaychtmmyw-ecti (Tecentriq Hybreza) [id number] MG-UT/15ML injection solution 1,875 mg, 1,875 mg, Subcutaneous, Once, 2 of 4 cycles Administration: 1,875 mg (10/04/2024), 1,875 mg (11/08/2024) CARBOplatin (Paraplatin) 650 mg in sodium chloride 0.9 % 250 mL IVPB, 650 mg, Intravenous, Once, 2 of 4 cycles Administration: 650 mg (10/04/2024), 620 mg (11/08/2024) etoposide (Toposar) 220 mg in sodium chloride 0.9 % 500 mL IVPB, 100 mg/m2 = 220 mg, Intravenous, Once, 2 of 4 cycles Administration: 220 mg (10/04/2024), 220 mg (10/05/2024), 220 mg (11/08/2024), 220 mg (11/09/2024), 220mg (10/06/2024), 220 mg (11/10/2024) aprepitant (Cinvanti) 130 MG/18ML IV 130 mg, 130 mg, Intravenous, Once, 2 of 4 cycles Administration: 130 mg (10/04/2024), 130 mg (11/08/2024) 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CMS/HCC) 09/09/2024 Initial Diagnosis 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CMS/HCC) 09/26/2024 - Radiation Therapy The patient saw Joshua Martínez MD for radiation treatment. This is the current list of radiation treatment: SBRT: Midline Brain Treatment Period Fraction Dose Fractions Total Dose Course C1 10/24/2024-11/07/2024 (days elapsed: 14) Plans Planned [id number] 10/24/2024-11/07/2024 300 cGy 3,000 cGy Reference Points Delivered Brain WBRT 10/24/2024-11/07/2024 -- -- 3,000 cGy documented in this encounter Plan of Treatment Upcoming Encounters Date Type Department Care Team (Late st Contact Info) Description 01/05/2025 1:00 PM EDT Office Visit [facility] [address] [place] [address] Lia Barnes, [facility] [employer]OSS [address] [facility] [address] [place] [address] 01/10/2025 9:00 AM EDT Clinical Support [facility] [address] [facility]nd [place] [address] 01/10/2025 9:40 AM EDT Office Visit [facility] [address] [facility]nd [place] [address] Satnam Colvin MD [address] [place] [address] 01/10/2025 12:00 PM EDT Appointment [facility] Infusion [facility] [address] [place] [address] 01/11/2025 3:30 PM EDT Appointment [facility]fusion [facility] [address] [place] [address] 01/12/2025 3:30 PM EDT Appointment [facility] [address] [place] [address] 01/19/2025 9:20 AM EDT Appointment [facility] S Radiology [address] [place] [address] 01/19/2025 10:45 AM EDT [facility] [address] [place] [address] Abhilash Bangura MD [address] [place] [address] 01/26/2025 4:30 PM EDT Office Visit [facility] [address] [facility] [place] [address] Lia Barnes, [facility] [employer] [address] [facility] [address] [place] [address] 03/08/2025 1:00 PM EDT Office Visit [facility] [place] [facility] [address] [place] [address] Teresita Oconnell MD [address] [place] [address] documented as of this encounter Procedures Procedure Name Priority Date/Time Associated Diagnosis Comments BLOOD GAS PANEL, VENOUS Routine 11/29/2024 2:35 PM EDT COMPREHENSIVE METABOLIC PANEL, PLASMA STAT 11/29/2024 2:35 PM EDT Extensive stage primary small cell carcinoma of lung documented in this encounter Results * (ABNORMAL) Blood gas panel, venous (11/29/2024 2:35 PM EDT) pH, Venous 7.35 7.32 - 7.43 LAB HEMATOLOGY METHOD 11/29/2024 2:47 PM EDT [facility] pCO2, Venous 42 37 - 52 mmHg LAB HEMATOLOGY METHOD 11/29/2024 2:47 PM EDT [facility] pO2, Venous 42(H) 25 - 40 mmHg LAB HEMATOLOGY METHOD 11/29/2024 2:47 PM EDT [facility] SO2, Measured, Venous 71 65 - 80 % LAB HEMATOLOGY METHOD 11/29/2024 2:47 PM EDT [facility] Base Excess, Venous -2.6(L) -2.0 - 3.0 mmol/L LAB HEMATOLOGY METHOD 11/29/2024 2:47 PM EDT [facility] Bicarbonate, Calculated, Venous 23 22 - 26 mmol/L LAB HEMATOLOGY METHOD 11/29/2024 2:47 PM EDT [facility] Hematocrit, Whole Blood 24.7(L) 34.0 - 45.0 % LAB HEMATOLOGY METHOD 11/29/2024 2:47 PM EDT [facility] Sodium, Whole Blood 142 136 - 145 mmol/L LAB HEMATOLOGY METHOD 11/29/2024 2:47 PM EDT [facility] Potassium, Whole Blood 3.9 3.6 - 4.9 mmol/L LAB HEMATOLOGY METHOD 11/29/2024 2:47 PM EDT [facility] Chloride, Whole Blood 104 97 - 107 mmol/L LAB HEMATOLOGY METHOD 11/29/2024 2:47 PM EDT [facility] Glucose, Whole Blood 198(H) 74 - 99 mg/dL LAB HEMATOLOGY METHOD 11/29/2024 2:47 PM EDT [facility] Lactate, Venous, Whole Blood 5.7(H) 0.5 - 2.2 mmol/L LAB HEMATOLOGY METHOD 11/29/2024 2:47 PM EDT [facility] Ionized Calcium, Whole Blood 4.0(L) 4.6 - 5.1 mg/dL LAB HEMATOLOGY METHOD 11/29/2024 2:47 PM EDT [facility] Blood Venous blood specimen / Unknown Venipuncture / Unknown 11/29/2024 2:35 PM EDT 11/29/2024 2:45 PM EDT Satnam Dunne MD LAB BLOOD ORDERABLES Fi nal Result [facility] [address] [place] [address] * (ABNORMAL) Comprehensive metabolic panel (11/29/2024 2:35 PM EDT) Glucose, Plasma 193(H) 74 - 99 mg/dL 11/29/2024 3:28 PM EDT [facility] BUN, Plasma 17 8 - 23 mg/dL 11/29/2024 3:28 PM EDT [facility] Creatinine, Plasma 2.82(H) 0.60 - 1.10 mg/dL 11/29/2024 3:28 PM EDT [facility] BUN/Creatinine Ratio 6 11/29/2024 3:28 PM EDT [facility] Sodium, Plasma 139 136 - 145 mmol/L 11/29/2024 3:28 PM EDT [facility] Potassium, Plasma 4.6 3.6 - 4.9 mmol/L 11/29/2024 3:28 PM EDT [facility] Comment:Hemolyzed, result ma y be falsely increased. Chloride, Plasma 102 97 - 107 mmol/L 11/29/2024 3:28 PM EDT [facility] CO2, Plasma 19(L) 22 - 29 mmol/L 11/29/2024 3:28 PM EDT [facility] Anion Gap 18(H) 6 - 16 mmol/L 11/29/2024 3:28 PM EDT [facility] Total Calcium, Plasma 7.7(L) 8.9 - 10.2 mg/dL 11/29/2024 3:28 PM EDT [facility] Total Protein 6.5 6.3 - 7.9 g/dL 11/29/2024 3:28 PM EDT [facility] Albumin, Plasma 2.9(L) 3.5 - 5.2 g/dL 11/29/2024 3:28 PM EDT [facility] AST, Plasma 29 10 - 35 U/L 11/29/2024 3:28 PM EDT [facility] Comment:Hemolyzed, result ma y be falsely increased. ALT, Plasma 18 10 - 35 U/L 11/29/2024 3:28 PM EDT [facility] Alkaline Phosphatase, Plasma 119 46 - 142 U/L 11/29/2024 3:28 PM EDT [facility] Total Bilirubin, Plasma 0.4 0.2 - 1.1 mg/dL 11/29/2024 3:28 PM EDT [facility] eGFRcr 18.2 mL/min/1.7 3m*2 11/29/2024 3:28 PM EDT [facility] Comment:Reported eGFRcr in m L/min/1.73m2 is based the CKD-EPI 2020 equation that does not use a race coefficient. Blood Venous blood specimen / Unknown Venipuncture / Unknown 11/29/2024 2:35 PM EDT 11/29/2024 2:58 PM EDT Satnam Dunne MD LAB BLOOD ORDERABLES Fi nal Result [facility] [address] [place] [address] documented in this encounter Visit Diagnoses Diagnosis Extensive stage primary small cell carcinoma of lung- Primary documented in this encounter Administered Medications Inactive Administered Medications - up to 3 most recent administrations Medication Order MAR Action Action Date Dose Rate Site magnesium sulfate IVPB 4 g 4 g, Intravenous, Once as needed, 1 dose, Starting on Thu11/29/24 at 1404, Until Thu11/29/24 at 1455, Routine, For magnesium value 1.2 to 1.4 and patient having GREATER THAN 3 loose stools per dayIndications:Extensive stage primary small cell carcinoma of lung New Bag 11/29/2024 2:26 PM EDT 4 g 25 mL/hr sodium chloride 0.9 % bolus 1,000 mL 1,000 mL, Intravenous, Once, 1 dose, On 11/29/24 at 1430, Administer over 60 Minutes, RoutineIndications:Extensive stage primary small cell carcinoma of lung New Bag 11/29/2024 2:26 PM EDT 1,000 mL 25 mL/hr documented in this encounter Additional Health Concerns Infection Onset Date Last Indicated Resolved Time 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, AN/SQQ 89(V)15 [employer] 10/26/2024 10/31/2024 Assessment Noted Time PHQ-9 Depression Total Score: 0 09/01/19 3:26 PM EDT A fall risk assessment has been complete d for the patient 11/29/2024 1:14 PM EDT A Body Mass Index follow-up plan has been documented for the patient 12/10/2024 5:08 PM EDT documented as of this encounter Care Teams Concert Promoter Relationship Specialty Start Date End Date Laurie Gutierrez MD [address] [place] [address] PCP - General 12/09/23 Joshua Martínez MD [address] [place] [address] Consulting Physician Radiation Oncology 09/19/24 Sabine Morales LPN TCM Nurse 11/23/24 12/23/24 documented as of this encounter
--- OUTSIDE RECORDS SUMMARY | 2024-11-29 15:11 | XMS_ITS | Encounter Summary ---
Author Organization [facility] Address [facility] [place] [address] Care Team Providers Care Satellite Tv Installer Name Role Phone Laurie Gutierrez MD Primary Care Provider [phone] Joshua Martínez MD Unavailable Sabine Morales SENIOR MICROSTRATEGY DEVELOPER Unavailable Unavailable Reason for Visit * Reason Comments Seizures * Auth/Cert (Routine) Specialty Diagnoses / Procedures Referred By Contac t Referred To Contact Diagnoses Seizures ([facility]) New onset seizures in infusion clinic Nilson Jimenez MD [address] [place] [address] Phone: tel: fax: [facility] Emergency Department [address] [place] [address] Phone: tel: Referral ID Status Reason Start Date Expiration Date Visits Re quested Visits Authorized [id number] 1 1 Encounter Details Date Type Department Care Team (Latest Contact Info) Description 11/29/2024 3:11 PM EDT - 12/10/2024 6:03 PM EDT Hospital Encounter [facility] Inpatient [address] [place] [address] Nisha Cordova MD [address] [place] [address] Patrick Gtz MD [address] [place] [address] Nilson Jimenez MD [address] [place] [address] Noemí Leigh MD [address] [facility] [address] [place] [address] Bernice Eckert MD [address] [place] [address] Seizure (CMS/HCC) (Primary Dx); Acute heart failure, unspecified heart failure type (CMS/HCC) Discharge Disposition: Home-Health Care Svc Social History Tobacco Use Types Packs/Day Years [...] the money to buy more. Never true 12/02/19 25 Within the past 12 months, t he food you bought just didn't last and you didn't have money to get more. Never true 12/01/2024 PRAPARE - Transportation Answer Date Re corded In the past 12 months, has l ack of transportation kept you from medical appointments or from getting medications? No 11/15 In the past 12 months, has l ack of transportation kept you from meetings, work, or from getting things needed for daily living? No 12/01/2024 Housing Stability Vital Sign Answer Gregor e Recorded In the last 12 months, was t here a time when you were not able to pay the mortgage or rent on time? No 12/01/2024 Number of Times Moved in the Last Year Not on fi le 12/01/2024 At any time in the past 12 m [facility], were you homeless or living in a detention (including now)? 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 0 12/02/2024 CAGE Questionnaire Score 0 025 Utilities Answer Date Recorded In the past 12 months has th [employer], gas, oil, or water company threatened to shut off services in your home? No 12/01/2024 Comments No Sex and Gender Information Value Date Recorded Sex Assigned at Female 12/02/2024 4:52 PM EDT Legal Sex Female 8:32 PM EDT Gender Identity Female 12/02/2024 4:52 PM EDT Sexual Orientation Straight 12/02/2024 4: 52 PM EDT documented as of this encounter Last Filed Vital Signs Vital Sign Reading Time Taken Comments Blood Pressure 126/61 12/10/2024 3:00 PM EDT Pulse 74 12/10/2024 4:51 PM EDT Temperature 36.8 C (98.3 F) 12/10/2024 3:00 PM EDT Respiratory Rate 23 12/10/2024 4:51 PM EDT Oxygen Saturation 85% 12/10/2024 4:51 PM EDT Inhaled Oxygen Concentration - - Weight 110 kg (242 lb 15.2 oz) 12/10/2024 5:15 A M EDT Height 170.2 cm (5' 7 ) 12/02/2024 5:49 AM EDT Body Mass Index 38.05 12/02/2024 5:49 AM EDT documented in this encounter Functional [...] Risk Indicated 12/07/2024 8:00 PM EDT Stephanie Antonio * Question Answer Date of Assessment Author 1. Wish to be (Past 1 Month) No 025 8:00 PM EDT Catrina Antonio 2. Non-Specific Active Suici radha Thoughts (Past 1 Month) No 12/07/2024 8:00 PM EDT Catrina Antonio 6. Suicidal Behavior (Lifetime) No 5 8:00 PM EDT Catrina Antonio documented as of this encounter Medications at Time of Discharge acetaminophen (Tylenol) 325 MG tablet Take 2 tablets by mouth every 6 hours. Under [place] law, monthly prescriptions (30 days) can be [...] 399=12units max of 36units daily nystatin (Mycostatin) 986676 UNIT/GM powder Apply on bottom 2 times [...] controlled-release Take 1 tablet by mouth Daily. calcium carbonate (Tums) 500 MG chewable tablet Chew 1 tablet 4 times a day as needed for indigestion or heartburn. 12/17/19 25 estradiol (Estrace) 0.1 MG/GM vaginal cream Insert 2 g into the vagina daily. 12/17/19 25 furosemide (Lasix) 40 MG tablet TAKE 1 TABLET BY MOUTH ONCE DAILY FOR LEG SWELLLING 5 12/23/19 25 levETIRAcetam (Keppra) 1000 MG tablet Take 1 tablet by mouth 2 times a day. 60 tablet 5 5 01/04/20 25 lidocaine (Xylocaine) 5 % ointment Apply 2 times a day. 30 g 5 12/17/19 25 magic mouthwash BLM (FIRST-Mouthwash) suspension Swish [...] day. 90 tablet 5 5 12/23/19 25 mupirocin (Bactroban) 2 % ointment Apply on head 2 times a day 22 g 5 12/17/19 25 polyethylene glycol (Miralax) 17 g packet Take 17 g by mouth 2 times a day as needed (constipation). 60 packet 5 5 12/23/19 25 rOPINIRole (Requip) 1 MG tablet Take 1 tablet by mouth 2 times a day. 12/17/19 25 documented as of this encounter Miscellaneous Notes * Discharge Summary - Bernice Eckert MD - 12/10/2024 4:53 PM EDT Hospitalization Admit Date/Time: 11/29/2024 3:11 PM Admitting Attending: Nilson Jimenez Discharge Date: 12/10/2024 Discharge Attending Physician: Bernice Eckert MD PCP name and Address: Laurie Gutierrez MD [address] [place], [place] [address] [id number] Referring provider name and address: Robbie Rosas, MATERIAL CONTROL MANAGER [address] [facility] [address] [place] [address] Chief Concern, Brief History of Present Illness, and Hospital Course Teresa Rivera is a 64 yof with SCLCA with metastasis to brain s/p craniotomy and recent SAH/SDH who was transferred to ED after having a seizure in [facility]. 1.Seizure occurred - Likely new symptom (maybe had seizure 1 week CHEF DE CUISINE, witnessed seizure 11/29). Apparently Keppra had been stopped postoperatively prior to this event. - CT head: no acute/new findings, similar appearance of small amount of subdural blood - No seizures noted on EEG - Discussed MRI brain findings with Neurosurgery 12/02; recommend continuing Keppra Again discussed possible meningitis with Neurosurgery (LGF, after seizure). Images reviewed and they do not think source of her infection is meningitis - In light of LGF with new seizure, had LP in IR. Choe partially pe nding so far but 15 nucleated cells. Cytology neg Cultures neg. Cryptococc ag negative. Had abx plan 7d 2.Fever, low grade and unclear significance External Otitis Headache - No photophobia on exam - CXR negative for infiltrate - No urinary symptoms and admission UA negative for infection. - Started empiric ceftriaxone and vancomycin (limited by JORGE) and added ampicillin today. Broadenedceftriaxone to cefepime because pseudomonas noted from sputum culture. This pseudomonas is likely colonization because she does not have respiratory symptoms so would have low threshold to narrow once CSF cultures are back. - Started Cortisporin gtt QID right ear 12/01, stopped per patient request. 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 Discussed with Neurosurgery 12/01. They have evaluated and there are no surgical recommendations. Will continue with plans for continuing OPchemotherapy pending other medical issues. - Discussed with Med Onc on rounds today. Chronic Conditions or Resolved issues: Diplopia, resolved - No changes on MRI brain to explain this symptom. Atrial flutter/fibrillation, uncontrolled with RVR - Followed by [facility]ology for atrial flutter/fibrillation; history of ablation - Noted to be mostly in NSR on tele; intermittent, short episodes of AF with RVR, asymptomatic. History of bradycardia and hypotension with higher doses of metoprolol. Home dose 50mg BID but here titrating up and was at 25mg TID. - Home meds: lasix, spiralactone, htcz-triamterene, metoprolol, losartan. Per sister, not taking most of these. . - Have been holding anticoagulation due to recent SAH/SDH on 11/15. The initial plan was to hold for 2 weeks but notably mri this admission with residual hemorrhage. Dw neurosurgery who recommended to continued to hold and follow up with PCP as outpt to discuss continued need for ac HYPOKALEMIA- replaced. HYPOMAGNESEMIA- replaced. Type II DM, controlled - Last A1c, 08/2024: 6.3% - home regimen: metformin, Januvia - Hospital regimen: Insulin sliding scale -prevously also on insulin but poor po intake so many meds held/decreased. Resume metformin alone on dc Anemia, chronic disease - monitor, transfuse for hgb < 7.0 HTN - meds as above HLD - atorvastatin COPD on 2L NC- no signs of exacerbation, home meds: Breztri, cetirizine, montelukast, GERD - protonix, tums Chronic hypomagnesemia - Mag oxide Anxiety/Depression - hydroxyzine, fluoxetine Neuropathy/Chronic Pain -gabapentin Chemo induced Nausea and Vomiting - Zofran and Compazine Code status: Full Code Discharge planning Anticipate home. Spouse 2 months ago so now lives alone. She is planning to stay with her sister short term. Sister confirms. Pt ot rec hwa Surgeries and Procedures Medication List PAUSE taking these medications Lantus SoloStar 100 UNIT/ML injection pen Wait to take this until your doctor or other care provider tells you to start again. Generic drug: insulin glargine Inject 25 Units under the skin nightly. NovoLOG FLEXPEN 100 UNIT/ML injection pen Wait to take this until your doctor or other care provider tells you to start again. Generic drug: insulin aspart Sliding scale three times a day with corrections and meals; BS 150-199=2units; BS 200-249=4units; BS 250-229=6units; 300-349=8 units; 350-399=10 units; anything greater than 399=12units max of 36units daily rivaroxaban 20 MG tablet Wait to take this until your doctor or other care provider tells you to start again. Commonly known as: Xarelto Take 1 tablet by mouth 1 time each day with dinner. Take with food. rOPINIRole 1 MG tablet Wait to take this until your doctor or other care provider tells you to start again. Commonly known as: Requip Take 1 tablet by mouth 2 times a day. SITagliptin 50 MG tablet Wait to take this until your doctor or other care provider tells you to start again. Commonly known as: Januvia Take 1 tablet by mouth every morning. triamterene-hydrochlorothiazide 37.5-25 MG tablet Wait to take this until your doctor or other care provider tells you to start again. Commonly known as: Maxzide-25 Take 1 tablet by mouth every morning. .. acetaminophen 325 MG tablet Commonly known as: Tylenol Take 2 tablets by mouth every 6 hours. Under [place] law, monthly prescriptions (30 days) can be refilled at 25 days and three-month prescriptions (90 days) at 80 days. Please contact the insurance company with questions if refills are denied. atorvastatin 40 MG tablet Commonly known as: Lipitor Take 1 tablet by mouth every evening. Breztri Aerosphere 160-9-4.8 MCG/ACT aerosol Generic drug: Hgbuwoy-Jfbhlvhajet-Nykqyprnlo Inhale 2 puffs 2 (two) times a [...] PROzac Take 1 capsule by mouth daily. furosemide 40 MG tablet Commonly known as: Lasix TAKE 1 TABLET BY MOUTH ONCE DAILY FOR LEG SWELLLING gabapentin 600 MG tablet Commonly known as: Neurontin Take 1 tablet by mouth 4 times a day. glucose 4 g chewable tablet Commonly known as: Trueplus Glucose Chew 4 tablets as needed for low blood sugar. hydrOXYzine HCl 25 MG tablet Commonly known as: Atarax Take 1 tablet by mouth 3 times a day as needed. levETIRAcetam 500 MG tablet Commonly known as: Keppra Take 2 tablets by mouth 2 times a day. lidocaine 5 % ointment Commonly known as: [...] times a day with meals. metoprolol tartrate 25 MG tablet Commonly known as: Lopressor Take 1 tablet by mouth 3 times a day. montelukast 10 MG tablet Commonly known as: Singulair Take 1 tablet by mouth nightly. mupirocin 2 % ointment Commonly known as: Bactroban Apply on head 2 times a day nystatin [id number] UNIT/GM powder Commonly known as: Mycostatin Apply on bottom 2 times a day ondansetron ODT 4 MG disintegrating tablet Commonly known as: Zofran-ODT Dissolve 1 tablet on the tongue every 6 hours as needed for nausea or vomiting. pantoprazole 40 MG EC tablet Commonly known as: Protonix Take 1 tablet by mouth daily. Do not crush, chew, or split. pen needle, diabetic 31G X 5 MM misc Use as directed with insulin pen. polyethylene glycol 17 g packet Commonly known as: Miralax Take 17 g by mouth 2 times a day as needed (constipation). prochlorperazine 10 MG tablet Commonly known as: Compazine Take 1 tablet by mouth every 6 hours as needed for nausea or vomiting. 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CMS/HCC) Anemia Anxiety COPD (chronic obstructive pulmonary disease) (CMS/HCC) Diabetes mellitus (CMS/HCC) Essential hypertension Mixed hyperlipidemia Hypomagnesemia Neuropathy A-fib (CMS/HCC) Heart failure * (Principal) Seizure (CMS/HCC) JORGE (acute kidney injury) (CMS/HCC) Post Discharge Instructions Outpatient Follow-Up Future Appointments Date Time Provider Department Center 12/20/2024 10:30 AM [facility] JOSE MARTIN [facility] [place] 12/20/2024 11:00 AM Satnam Colvin MD [facility] [place] 12/20/2024 12:30 PM [facility] 12/21/2024 2:30 PM [facility] 1 INFUSION TREATMENT [id number] [facility] 12/22/2024 2:30 PM [facility] 1 INFUSION TREATMENT [id number] [facility] 01/19/2025 9:30 AM GS MR 2 MRIGSH [facility] 01/19/2025 10:45 AM Abhilash Bangura MD [facility] 03/08/2025 1:00 PM Teresita Oconnell MD [facility] Heart I Test Results Pending At Discharge Pending Labs Order Current Status AFB Culture, Non Respiratory Source and Acid Fast Stain Preliminary result Freeze and Hold Preliminary result Fungal Culture, Cerebrospinal Fluid (CSF) and Emily Ink Preliminary result Pertinent Physical Exam At Time of Discharge Physical Exam Constitutional: Appearance: Normal appearance. Neurological: Mental Status: She is alert and oriented to person, place, and time. Psychiatric: Mood and Affect: Mood normal. Behavior: Behavior normal. Thought Content: Thought content normal. Judgment: Judgment normal. Discharge Disposition/Condition Disposition: Home Condition: Stable (s/sx potential problems absent or manageable) I spent >30 minutes of patient care and instruction time in preparation for this discharge. * Hospital Course - Bernice Eckert MD - 12/10/2024 4:53 PM EDT Teresa Rivera is a 64 yof with SCLCA with metastasis to brain s/p craniotomy and recent SAH/SDH who was transferred to ED after having a seizure in [facility] infusion [facility]. 1.Seizure occurred - Likely new symptom (maybe had seizure 1 week CHEF DE CUISINE, witnessed seizure 11/29). Apparently Keppra had been stopped postoperatively prior to this event. - CT head: no acute/new findings, similar appearance of small amount of subdural blood - No seizures noted on EEG - Discussed MRI brain findings with Neurosurgery 12/02; recommend continuing Keppra Again discussed possible meningitis with Neurosurgery (LGF, after seizure). Images reviewed and they do not think source of her infection is meningitis - In light of LGF with new seizure, had LP in IR. Choe partially pe nding so far but 15 nucleated cells. Cytology neg Cultures neg. Cryptococc ag negative. Had abx plan 7d 2.Fever, low grade and unclear significance External Otitis Headache - No photophobia on exam - CXR negative for infiltrate - No urinary symptoms and admission UA negative for infection. - Started empiric ceftriaxone and vancomycin (limited by JORGE) and added ampicillin today. Broadenedceftriaxone to cefepime because pseudomonas noted from sputum culture. This pseudomonas is likely colonization because she does not have respiratory symptoms so would have low threshold to narrow once CSF cultures are back. - Started Cortisporin gtt QID right ear 12/01, stopped per patient request. 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 Discussed with Neurosurgery 12/01. They have evaluated and there are no surgical recommendations. Will continue with plans for continuing OPchemotherapy pending other medical issues. - Discussed with Med Onc on rounds today. Chronic Conditions or Resolved issues: Diplopia, resolved - No changes on MRI brain to explain this symptom. Atrial flutter/fibrillation, uncontrolled with RVR - Followed by cardiology for atrial flutter/fibrillation; history of ablation - Noted to be mostly in NSR on tele; intermittent, short episodes of AF with RVR, asymptomatic. History of bradycardia and hypotension with higher doses of metoprolol. Home dose 50mg BID but here titrating up and was at 25mg TID. - Home meds: lasix, spiralactone, htcz-triamterene, metoprolol, losartan. Per sister, not taking most of these. . - Have been holding anticoagulation due to recent SAH/SDH on 11/15. The initial plan was to hold for 2 weeks but notably mri this admission with residual hemorrhage. Dw neurosurgery who recommended to continued to hold and follow up with PCP as outpt to discuss continued need for ac HYPOKALEMIA- replaced. HYPOMAGNESEMIA- replaced. Type II DM, controlled - Last A1c, 08/2024: 6.3% - home regimen: metformin, Januvia - Hospital regimen: Insulin sliding scale -prevously also on insulin but poor po intake so many meds held/decreased. Resume metformin alone on dc Anemia, chronic disease - monitor, transfuse for hgb < 7.0 HTN - meds as above HLD - atorvastatin COPD on 2L NC- no signs of exacerbation, home meds: Breztri, cetirizine, montelukast, GERD - protonix, tums Chronic hypomagnesemia - Mag oxide Anxiety/Depression - hydroxyzine, fluoxetine Neuropathy/Chronic Pain -gabapentin Chemo induced Nausea and Vomiting - Zofran and Compazine Code status: Full Code Discharge planning Anticipate home. Spouse 2 months ago so now lives alone. She is planning to stay with her sister short term. Sister confirms. Pt ot rec hwa * Zachary Ford - Bernice Eckert MD - 12/10/2024 4:48 PM EDT Images from the original note were not included. [id number] Potassium-Rich Foods The recommended average daily intake of potassium for a healthy man is 3,400 mg a day. For a healthy woman who is not , the amount is 2,600 mg a day. More potassium is needed when you lose too much potassium from your body. This can happen if you have diarrhea or vomiting. Or if you have inflammatory bowel disease. It can also happen if you take a medicine to make you urinate more (diuretic) or large doses of laxatives. People with chronic kidney disease must be careful not to get too much potassium. If your healthcare provider tells you that you need to increase the amount of potassium in your diet, include these high-potassium foods. [The (*) indicates foods highest in potassium.] Vegetables Artichokes. Cooked 1/2 cup, 200 mg to 300 mg* Asparagus. Cooked 1/2 cup, 200 mg to 300 mg Beans. White, red, [place] cooked 1/2 cup, 300 mg to 500 mg* Beets. Cooked 1/2 cup, 200 mg to 300 mg Broccoli. Cooked or raw 1 cup, 200 mg to 500 mg* [place] sprouts. Cooked 1/2 cup, 200 mg to 300 mg Cabbage. Raw 1 cup, 100 mg to 200 mg Carrots. Raw or cooked 1/2 cup, 100 mg to 200 mg Celery. Raw 1 cup, 200 mg to 300 mg Guy beans. Fresh or frozen 1/2 cup, 300 mg to 500 mg* Mushrooms. Raw or cooked 1/2 cup, 100 mg to 300 mg Peas. Cooked 1/2 cup, 150 mg to 250 mg Potatoes. Baked 1 medium, 500 mg to 900 mg* Spinach. Cooked 1 cup, 800 mg to 900 mg* Spinach. Raw 2 cups, 300 mg to 400 mg* Squash, winter. Fresh, frozen, or cooked 1/2 cup, 200 mg to 400 mg Tomato. Fresh 1 medium, 200 mg to 300 mg Tomato juice. Canned 1/2 cup, 200 mg to 300 mg Fruits Apple juice. Unsweetened 1 cup, 200 mg to 300 mg Apricots. Canned 1/2 cup, 200 mg to 300 mg Apricots. Dried 4 pieces, 100 mg to 200 mg Avocado. Raw 1/2 cup, 300 mg to 400 mg* Banana. Fresh 1 small, 300 mg to 400 mg* Cantaloupe. Fresh 1 cup diced, 300 mg to 400 mg* Grape juice. Unsweetened 1 cup, 200 mg to 300 mg Honeydew melon. Fresh 1 cup diced, 300 mg to 400 mg* [place]. Fresh 1 medium, 200 mg to 300 mg [place] juice. Unsweetened, fresh or frozen 1/2 cup, 200 mg to 300 mg Pineapple juice. Unsweetened 1 cup, 300 mg to 400 mg Prune juice. Unsweetened 1/2 cup, 300 mg to 400 mg* Prunes. Dried 5 pieces, 300 mg to 400 mg* Strawberries. Fresh or frozen 1 cup, 200 mg to 300 mg Meat Red meat. Cooked 3 ounces, 100 mg to 300 mg Seafood Cod, flounder, halibut. Cooked 3 ounces, 100 mg to 300 mg* [place]. Cooked, 3 ounces 300 mg to 400 mg* Scallops. Cooked 3 ounces, 200 mg to 300 mg* Shrimp. Cooked 3/4 cup, 100 mg to 200 mg Tuna. Fresh or canned 3/4 cup, 200 mg to 500 mg Last Reviewed Date: 2022 00:00:00 ?? 2112-0273 The [employer]. All rights reserved. This information is not intended as a substitute for professional medical care. Always follow your healthcare professional's instructions. * Joya Thacker RN - 12/10/2024 3:50 PM EDT Images from the original note were not included. [id number] Discharge Instructions: Eating a High-Potassium Diet Your healthcare provider has told you to eat a high-potassium diet. This may be because you have low levels of potassium in your blood. Or it may be because you have high blood pressure. You may alsoneed a high potassium diet because you take a medicine, such as a diuretic (water pill), that causes your body to lose potassium. Potassium is found in many foods. These include dairy products, nuts, seeds, and beans. It?s also found in many fruits and vegetables in high amounts. Guidelines for a high-potassium diet ? Eat fruits and vegetables in their fresh or raw form most often. ? Check labels for ingredients that have potassium. This includes potassium chloride. Add these items to your diet. ? Try salt substitutes. Many of these have potassium. ? Don't eat large amounts of licorice. This includes licorice root and teas that have licorice. These can reduce potassium levels in your body. Eat plenty of the following high-potassium foods: ? Fruits. Good choices are apricots (canned and fresh), bananas, cantaloupe, honeydew melon, kiwi, nectarines, oranges, orange juice, and pears. Dried fruits include apricots, dates, figs, and prunes. Prune juice also has potassium. ? Vegetables. Good choices are asparagus, avocado, artichoke, broccoli, bamboo shoots, beets, [place] sprouts, cabbage, celery, chard, okra, potatoes (white and sweet), pumpkin, rutabaga, spinach (cooked), squash, and tomatoes. Tomato sauce, tomato juice, and vegetable juice cocktail are also goodchoices. ? Chicken, fish, clams, and crab ? Milk, chocolate milk, buttermilk, and soy milk ? Legumes. These include black-eyed peas, chickpeas, lentils, guy beans, navy beans, red kidney beans, soybeans, and split peas. ? Nuts and seeds. Try almonds, [place] nuts, cashews, peanuts, peanut butter, pecans, pumpkin seeds,sunflower seeds, and walnuts. ? Breads and cereals. These include bran and whole-grain products. ? Other foods include chocolate, cocoa, coconut milk, and molasses Follow-up Make a follow-up appointment for a repeat test. When to call your healthcare provider Call your healthcare provider right away if any of the following occur: ? Vomiting ? Extreme tiredness (fatigue) ? Diarrhea ? Rapid, irregular heartbeat ? Shortness of breath ? Chest pain ? Muscle cramps, spasms, or twitching ? Weakness ? Paralysis Last Reviewed Date: 2022 00:00:00 ?? [id number] The [employer]. All rights reserved. This information is not intended as a substitute for professional medical care. Always follow your healthcare professional's instructions. * Care Plan - Summer Monet RN - 12/10/2024 10:38 AM EDT Problem: Adult Inpatient Plan of Care Goal: Plan of Care Review Outcome: Ongoing, Progressing Flowsheets (Taken 12/10/2024 1033) Progress: improving Plan of Care Reviewed With: patient Goal: Patient-Specific Goal (Individualized) Outcome: Ongoing, Progressing Flowsheets (Taken 12/10/2024 0700) Patient/Family-Specific Goals (Include Timeframe): Pt will report decreased nausea during this shift Individualized Care Needs: nausea Anxieties, Fears or Concerns: nausea Goal: Absence of Hospital-Acquired Illness or Injury Outcome: Ongoing, Progressing Intervention: Identify and Manage Fall Risk Flowsheets (Taken 12/10/20241032) Safety Promotion/Fall Prevention: activity supervised Intervention: Prevent Skin Injury Flowsheets (Taken 12/10/20241032) Body Position: right Skin Protection: incontinence pads utilized Intervention: Prevent and Manage VTE (Venous Thromboembolism) Risk Flowsheets (Taken 12/10/20241032) VTE Prevention/Management: bilateral SCDs (sequential compression devices) on Intervention: Prevent Infection Flowsheets (Taken 12/10/20241032) Infection Prevention: personal protective equipment utilized Goal: Optimal Comfort and Wellbeing Outcome: Ongoing, Progressing Intervention: Monitor Pain and Promote Comfort Flowsheets (Taken 12/10/20241032) Pain Management Interventions: ambulation/increased activity Intervention: Provide Person-Centered Care Flowsheets (Taken 12/10/20241032) Trust Relationship/Rapport: care explained choices provided emotional support provided empathic listening provided questions answered questions encouraged reassurance provided thoughts/feelings acknowledged Goal: Readiness for Transition of Care Outcome: Ongoing, Progressing Intervention: Mutually Develop Transition Plan Flowsheets (Taken 12/10/20241032) Readmission Within the Last 30 Days: no previous admission in last 30 days Problem: Fluid Volume Excess Goal: Fluid Balance Outcome: Ongoing, Progressing Intervention: Monitor and Manage Hypervolemia Flowsheets (Taken 12/10/20241032) Fluid/Electrolyte Management: electrolyte supplement adjusted Skin Protection: incontinence pads utilized Problem: Fall Injury Risk Goal: Absence of Fall and Fall-Related Injury Outcome: Ongoing, Progressing Intervention: Identify and Manage Contributors Flowsheets (Taken 12/10/20241032) Medication Review/Management: medications reviewed Self-Care Promotion: BADL personal objects within reach BADL personal routines maintained Intervention: Promote Injury-Free Environment Flowsheets (Taken 12/10/2024 1033) Safety Promotion/Fall Prevention: activity supervised Problem: Skin Injury Risk Increased Goal: Skin Health and Integrity Outcome: Ongoing, Progressing Intervention: Optimize Skin Protection Flowsheets (Taken 12/10/2024 1033) Activity Management: activity adjusted per tolerance Pressure Reduction Techniques: heels elevated off bed Pressure Reduction Devices: positioning supports utilized Skin Protection: incontinence pads utilized Head of Bed (HOB) Positioning: HOB at 20-30 degrees Intervention: Promote and Optimize Oral Intake Flowsheets (Taken 12/10/20241032) Oral Nutrition Promotion: calorie-dense foods provided Nutrition Interventions: frequent small meals provided Problem: Infection Goal: Absence of Infection Signs and Symptoms Outcome: Ongoing, Progressing Intervention: Prevent or Manage Infection Flowsheets (Taken 12/10/20243) Infection Management: aseptic technique maintained Fever Reduction/Comfort Measures: lightweight clothing Isolation Precautions: contact Problem: Diabetes Goal: Blood Glucose Level Within Target Range Outcome: Ongoing, Progressing Note: Blood glucose monitored Intervention: Optimize Glycemic Control Flowsheets (Taken 12/09/20244 by Lila Shin) Hyperglycemia Management: blood glucose monitored Goal: Minimize Hypoglycemia Risk Outcome: Ongoing, Progressing Intervention: Minimize and Manage Hypoglycemia Flowsheets (Taken 12/09/2024 2314 by Lila Shin) Hypoglycemia Management: blood glucose monitored Problem: Seizure, Active Management Goal: Absence of Seizure/Seizure-Related Injury Outcome: Ongoing, Progressing Intervention: Prevent Seizure-Related Injury Flowsheets (Taken 12/10/20243) Sensory Stimulation Regulation: care clustered Seizure Precautions: activity supervised clutter-free environment maintained emergency equipment at bedside side rails padded Problem: Acute Kidney Injury/Impairment Goal: Effective Renal Function Outcome: Ongoing, Progressing Intervention: Monitor and Support Renal Function Flowsheets (Taken 12/10/20243) Stabilization Measures: legs elevated Medication Review/Management: medications reviewed Problem: Pain Acute Goal: Optimal Pain Control and Function Outcome: Ongoing, Progressing Intervention: Optimize Psychosocial Wellbeing Flowsheets (Taken 12/10/2024 1033) Supportive Measures: active listening utilized Diversional Activities: smartphone Spiritual Activities Assistance: affirmation provided Intervention: Develop Pain Management Plan Flowsheets (Taken 12/10/2024 103) Pain Management Interventions: ambulation/increased activity Intervention: Prevent or Manage Pain Flowsheets (Taken 12/10/2024 103) Sensory Stimulation Regulation: care clustered Bowel Elimination Promotion: adequate fluid intake promoted Sleep/Rest Enhancement: consistent schedule promoted Medication Review/Management: medications reviewed * Care Plan - Lila Shin - 12/09/2024 11:23 PM EDT Problem: Adult Inpatient Plan of Care Goal: Plan of Care Review Outcome: Ongoing, Progressing Flowsheets (Taken 12/09/20242313) Progress: improving Outcome Evaluation: Plan of care reviewed with patient and her sister. Verbalized understanding. Plan of Care Reviewed With: patient Goal: Patient-Specific Goal (Individualized) Outcome: Ongoing, Progressing Flowsheets (Taken 12/09/20241999) Patient/Family-Specific Goals (Include Timeframe): patient will remain free from falls/injury during this shift Individualized Care Needs: safety Anxieties, Fears or Concerns: none stated Goal: Absence of Hospital-Acquired Illness or Injury Outcome: Ongoing, Progressing Intervention: Identify and Manage Fall Risk Flowsheets (Taken 12/09/20241999) Safety Promotion/Fall Prevention: activity supervised assistive device/personal items within reach clutter-free environment maintained fall prevention program maintained lighting adjusted nonskid shoes/slippers when out of bed room organization consistent safety round/check completed toileting scheduled mobility aid in reach Intervention: Prevent Skin Injury Flowsheets Taken 12/09/20242313 Body Position: weight shifting Taken 12/09/2024 0038 Skin Protection: incontinence pads utilized protective footwear used Intervention: Prevent and Manage VTE (Venous Thromboembolism) Risk Flowsheets (Taken 12/09/2024 2302) VTE Prevention/Management: bilateral SCDs (sequential compression devices) on Intervention: Prevent Infection Flowsheets (Taken 12/09/2024 0038) Infection Prevention: hand hygiene promoted rest/sleep promoted single patient room provided Goal: Optimal Comfort and Wellbeing Outcome: Ongoing, Progressing Intervention: Monitor Pain and Promote Comfort Flowsheets (Taken 12/09/20242313) Pain Management Interventions: quiet environment facilitated pain management plan reviewed with patient/caregiver care clustered rest Intervention: Provide Person-Centered Care Flowsheets (Taken 12/09/2024 0038) Trust Relationship/Rapport: care explained emotional support provided questions answered reassurance provided Goal: Readiness for Transition of Care Outcome: Ongoing, Progressing Intervention: Mutually Develop Transition Plan Flowsheets Taken 12/09/20242313 by Lila Shin Discharge Facility/Level of Care Needs: 1-Home or Self Care Discharge Coordination/Progress: Will be staying with her sister for a while when discharged Anticipated Changes Related to Illness: inability to care for self Transportation Anticipated: family or friend will provide Transportation Concerns: none Current Discharge Risk: chronically ill lives alone Concerns to be Addressed: adjustment to diagnosis/illness discharge planning Readmission Within the Last 30 Days: unable to assess Patient/Family Anticipates Transition to: home with family Taken 12/08/2024 1433 by Tootie Sullivan, RN Equipment Currently Used at Home: commode chair walker, rollator pulse oximeter glucometer Current Outpatient/Agency/Support Group: homecare agency Taken 12/06/2024 0050 by Erin Hardwick, RN Patient/Family Anticipated Services at Transition: ed case manager outpatient care Problem: Fluid Volume Excess Goal: Fluid Balance Outcome: Ongoing, Progressing Intervention: Monitor and Manage Hypervolemia Flowsheets Taken 12/09/20242313 Fluid/Electrolyte Management: fluids provided Taken 12/09/2024 0038 Skin Protection: incontinence pads utilized protective footwear used Problem: Fall Injury Risk Goal: Absence of Fall and Fall-Related Injury Outcome: Ongoing, Progressing Intervention: Identify and Manage Contributors Flowsheets Taken 12/09/20242313 Medication Review/Management: medications reviewed high-risk medications identified Taken 12/09/2024 0038 Self-Care Promotion: independence encouraged BADL personal objects within reach BADL personal routines maintained Intervention: Promote Injury-Free Environment Flowsheets (Taken 12/09/20241999) Safety Promotion/Fall Prevention: activity supervised assistive device/personal items within reach clutter-free environment maintained fall prevention program maintained lighting adjusted nonskid shoes/slippers when out of bed room organization consistent safety round/check completed toileting scheduled mobility aid in reach Problem: Skin Injury Risk Increased Goal: Skin Health and Integrity Outcome: Ongoing, Progressing Intervention: Optimize Skin Protection Flowsheets Taken 12/09/20242313 Activity Management: activity adjusted per tolerance activity encouraged ambulated in room ambulated to bathroom Pressure Reduction Devices: positioning supports utilized Head of Bed (HOB) Positioning: HOB at 20-30 degrees Taken 12/09/20248 Pressure Reduction Techniques: heels elevated off bed Skin Protection: incontinence pads utilized protective footwear used Intervention: Promote and Optimize Oral Intake Flowsheets (Taken 12/09/20242313) Oral Nutrition Promotion: calorie-dense liquids provided physical activity promoted Nutrition Interventions: diet liberalized food preferences provided Problem: Infection Goal: Absence of Infection Signs and Symptoms Outcome: Ongoing, Progressing Intervention: Prevent or Manage Infection Flowsheets (Taken 12/09/20242313) Infection Management: aseptic technique maintained Isolation Precautions: contact precautions maintained Problem: Diabetes Goal: Blood Glucose Level Within Target Range Outcome: Ongoing, Progressing Intervention: Optimize Glycemic Control Flowsheets (Taken 12/09/20242313) Hyperglycemia Management: blood glucose monitored Goal: Minimize Hypoglycemia Risk Outcome: Ongoing, Progressing Intervention: Minimize and Manage Hypoglycemia Flowsheets (Taken 12/09/20242313) Hypoglycemia Management: blood glucose monitored Problem: Seizure, Active Management Goal: Absence of Seizure/Seizure-Related Injury Outcome: Ongoing, Progressing Intervention: Prevent Seizure-Related Injury Flowsheets (Taken 12/09/20242313) Sensory Stimulation Regulation: care clustered quiet environment promoted Seizure Precautions: clutter-free environment maintained emergency equipment at bedside side rails padded Problem: Acute Kidney Injury/Impairment Goal: Effective Renal Function Outcome: Ongoing, Progressing Intervention: Monitor and Support Renal Function Flowsheets (Taken 12/09/20242313) Medication Review/Management: medications reviewed high-risk medications identified Problem: Pain Acute Goal: Optimal Pain Control and Function Outcome: Ongoing, Progressing Intervention: Optimize Psychosocial Wellbeing Flowsheets (Taken 12/09/20248) Supportive Measures: positive reinforcement provided relaxation techniques promoted self-care encouraged verbalization of feelings encouraged Diversional Activities: smartphone television Intervention: Develop Pain Management Plan Flowsheets (Taken 12/09/20242313) Pain Management Interventions: quiet environment facilitated pain management plan reviewed with patient/caregiver care clustered rest Intervention: Prevent or Manage Pain Flowsheets Taken 12/09/20242313 Sensory Stimulation Regulation: care clustered quiet environment promoted Medication Review/Management: medications reviewed high-risk medications identified Taken 12/09/2024 0038 Bowel Elimination Promotion: adequate fluid intake promoted commode/bedpan at bedside Sleep/Rest Enhancement: awakenings minimized consistent schedule promoted regular sleep/rest pattern promoted room darkened * Progress Notes - Bernice Eckert MD - 12/09/2024 4:02 PM EDT Images from the original note were not included. Subjective Denies Review of Systems Current Scheduled Medications[1] Current Continuous Medications[2] Current PRN Medications[3] Objective Vitals Temp: [36.8 ??C (98.2 ??F)-36.9 ??C (98.4 ??F)] 36.8 ??C (98.3 ??F) Heart Rate: [64-78] 71 Resp: [15-24] 22 BP: (93-127)/(41-82) 124/41 Physical Exam Constitutional: Appearance: Normal appearance. She is obese. Eyes: Conjunctiva/sclera: Conjunctivae normal. Pulmonary: Effort: Pulmonary effort is normal. No respiratory distress. Musculoskeletal: Right lower leg: No edema. Left lower leg: No edema. Skin: General: Skin is warm and dry. Neurological: Mental Status: She is alert and oriented to person, place, and time. Psychiatric: Mood and Affect: Mood normal. Behavior: Behavior normal. Thought Content: Thought content normal. Judgment: Judgment normal. Labs in last 18 hours CBC WBC ?? Hb ?? Plt ?? Hct ?? ANC ?? INR ??, PTT ??, Anti-Xa ?? BMP Na 143 Cl 102 BUN 9 Glu 110 (H) K 3.2 (L) Co2 25 Cr 1.48 (H) Ca 8.8 (L) iCa ?? Mg ??, Phos ?? Lactate ?? LFT AST ?? AlkPhos ?? T Prot ?? ALK ?? Bili ?? Alb ?? D.Bili ?? 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CMS/HCC) Anemia Anxiety COPD (chronic obstructive pulmonary disease) (CMS/HCC) Diabetes mellitus ([facility]) Essential hypertension Mixed hyperlipidemia Hypomagnesemia Neuropathy A-fib ([facility]) Heart failure JORGE (acute kidney injury) ([facility]) Results Procedure Component Value Units Date/Time Cerebrospinal Fluid (CSF) Culture and Gram Stain [[id number]] Collected: 12/06/241847 Order Status: Completed Specimen: Cerebrospinal Fluid from Lumbar Puncture Updated: 12/09/24 1422 Culture No growth at day 4 Gram Stain Rare Polymorphonuclear leukocytes No organisms seen Wilbur auris Surveillance by PCR [[id number]] (Normal) Collected: 12/08/24 1532 Order Status: Completed Specimen: Swab from Axilla and Groin Updated: 12/09/24 1146 Wilbur auris PCR Result Not Detected Narrative: This PCR assay was developed and its performance characteristics determined by [facility] as appropriate for clinical purposes. This assay has not been cleared or approved bythe FDA, but is performed in a CLIA regulated laboratory that is qualified to perform high-complexity testing. Blood Culture (Aerobic/Anaerobet Set) [[id number]] Collected: 12/03/24 0030 Order Status: Completed Specimen: Blood, Venous Updated: 12/08/24 1502 Culture No growth at day 5 Fungal Culture, Cerebrospinal Fluid (CSF) and Emily Ink [[id number]] Collected: 12/06/241847 Order Status: Completed Specimen: Cerebrospinal Fluid from Lumbar Puncture Updated: 12/08/24 1000 Culture No Fungal Growth <1 Week Emily Ink No fungal elements seen AFB Culture, Non Respiratory Source and Acid Fast Stain [[id number]] Collected: 12/06/241847 Order Status: Completed Specimen: Cerebrospinal Fluid from Lumbar Puncture Updated: 12/07/24 1602 Acid Fast Stain No acid fast bacilli seen Respiratory Culture and Gram Stain [[id number]] (Abnormal) (Susceptibility) Collected: 12/01/24 1807 Order Status: Completed Specimen: Sputum, Expectorated Updated: 12/07/24 1103 Culture Moderate Growth 3+ Pseudomonas aeruginosa MDR, [employer] Comment: This isolate has been identified using the FDA Approved [employer] System The organism value for this result has been updated. These results have been appended to the previously preliminary verified report. Edited result: Previously reported as Gram Negative Bruno on 12/04/2024 at 1300 EDT. Edited result: Previously reported as Pseudomonas aeruginosa on 12/06/2024 at 0925 EDT. This is a corrected result. Previous organism was Pseudomonas aeruginosa MDR on 12/06/2024 at 1029 EDT. 2+ Mixed upper respiratory sweetie Comment: The organism value for this result has been updated. These results have been appended to the previously preliminary verified report. Gram Stain Result Fewer than 10 Epithelial cells/LPF Fewer than 25 WBC/LPF Moderate Budding yeast Moderate Gram positive cocci in pairs Few Gram positive cocci in clusters Susceptibility Pseudomonas aeruginosa MDR, [employer] DONAVAN ETEST Aztreonam 8 Susceptible Cefepime 8 Susceptible Levofloxacin >4 Resistant Meropenem 32.0 Resistant Piperacillin/Tazobactam 32/4 Intermediate Tobramycin >8 Resistant Herpes Simplex Virus (HSV) by PCR [[id number]] (Normal) Collected: 12/06/241847 Order Status: Completed Specimen: Cerebrospinal Fluid from Lumbar Puncture Updated: 12/07/24 0854 Herpes Simplex Virus 1 (HSV-1) PCR Result Not Detected Herpes Simplex Virus 2 (HSV-2) PCR Result Not Detected Narrative: The FDA approved specimen sources for this assay are CSF, cutaneous, and mucocutaneous sites. Theseresults should be used in conjunction with other clinical tests and findings and should not be the sole basis for diagnosis or treatment of the patient. The FDA approved specimen sources for this assay are CSF, cutaneous, and mucocutaneous sites. Theseresults should be used in conjunction with other clinical tests and findings and should not be the sole basis for diagnosis or treatment of the patient. Cryptococcal Antigen, CSF [[id number]] (Normal) Collected: 12/06/241847 Order Status: Completed Specimen: Cerebrospinal Fluid from Lumbar Puncture Updated: 12/07/24 0555 Cryptococcal Antigen Result (CSF) Negative Freeze and Hold [[id number]] Collected: 12/06/241847 Order Status: Completed Specimen: Cerebrospinal Fluid from Lumbar Puncture Updated: 12/06/242140 Freeze and Hold Result The specimen has been received and verified. All specimens are held 30 days before discarding. Time of verification: 2140 Estimated Volume of Specimen 0.5-1.0 mL Blood Culture (Aerobic/Anaerobet Set) [[id number]] Collected: 11/30/24 0232 Order Status: Completed Specimen: Blood, Venous Updated: 12/05/24 0403 Culture No growth at day 5 Blood Culture (Aerobic/Anaerobet Set) [[id number]] Collected: 11/30/24208 Order Status: Completed Specimen: Blood, Venous Updated: 12/05/24 0328 Culture No growth at day 5 Blood Culture (Aerobic/Anaerobet Set) [[id number]] Collected: 12/03/24 0030 Order Status: Completed Specimen: Blood, Venous Updated: 12/03/24 1426 Narrative: BLOOD CULTURE SET SENT WITH TWO DIFFERENT ACCESSION NUMBERS. REFER TO [address] [place] [address] FOR BLOOD CULTURE SET. A CREDIT HAS BEEN ISSUED FOR DUPLICATE ORDER 12/03 TS Methicillin Resistant Staphylococcus aureus (MRSA) by PCR [[id number]] (Normal) Collected: 12/03/24 0015 Order Status: Completed Specimen: Swab from Nares Updated: 12/03/24 0231 Methicillin Resistant Staphylococcus aureus (MRSA) by PCR Not Detected Narrative: This test is FDA approved for use with nares swab specimens using the eSwabs. This test is used forclinical purposes. It should not be regarded as investigational or for research. This laboratory iscertified under the Clinical Laboratory improvement Amendments of 1988 (CLIA-88 as qualified to perform high complexity clinical laboratory testing. Multi Drug Resistance Test [[id number]] Collected: 11/30/24208 Order Status: Completed Specimen: Swab from Nares and Carole Rectal Updated: 12/01/24 0625 Culture No growth at day 1 Narrative: This test was developed and its performance characteristics determined by the [facility]. Although the media is FDA-approved, it is not FDA-approved for all specimen types submitted. The FDA has determined that such clearance or approval is not necessary. This test is used for surveillance purposes. It should not be regarded as investigational or for research. The [facility] is certified under the ClinicalLaboratory Improvement Amendments of 1988 (CLIA-88) as qualified to perform high complexity clinical laboratory testing. Streptococcus pneumoniae and Legionella Urinary Antigen [[id number]] (Normal) Collected: 11/30/24208 Order Status: Completed Specimen: Urine, Clean Catch Updated: 11/30/24 0518 Legionella pneumophila serogroup 1 Antigen Result (Urine) Negative Streptococcus pneumoniae Antigen Result (Urine) Negative Nasopharyngeal Respiratory Panel [[id number]] (Normal) Collected: 07/16/25 0209 Order Status: Completed Specimen: Swab from Nasopharynx Updated: 11/30/24 0505 Nasopharyngeal Respiratory PCR Interpretation Not Detected for all analytes Narrative: This assay can detect Adenovirus, Coronavirus, Human [...] Respiratory PCR Panel is performed using the Olo instrument. This test is FDA approved for use with Nasopharyngeal swabs only. This test is used for clinical purposes. It should not be regarded as investigational or for research. The [facility] is certified under the Clinical Laboratory Improvement Amendments of 1988 (CLIA-88) as qualified to perform high complexity clinical laboratory testing. SARS CoV-2/COVID-19 by PCR [[id number]] (Normal) Collected: 11/30/24 0209 Order Status: Completed Specimen: Swab from Nasopharynx Updated: 11/30/24 0402 SARS CoV-2/COVID-19 RNA PCR Result Not Detected Narrative: This test is FDA approved for use with nasopharyngeal specimens in Viral Transport Media (VTM). This test is used for clinical purposes. It should not be regarded as investigational or for research. This laboratory is certified under the Clinical Laboratory improvement Amendments of 1988 (CLIA-88 as qualified to perform high complexity clinical laboratory testing. This test was performed on the Xpert XpCartiCure SARS CoV-2 Plus assay test, a PCR- based method. Negative results should be considered presumptive and do not preclude current or future infection obtained through community transmission or other exposures. Negative results must be considered in the context of an individual's recent exposures, history, presence of clinical signs and symptoms consistent with COVID-19. Teresa Rivera is a 64 yof with SCLCA with metastasis to brain s/p craniotomy and recent SAH/SDH who was transferred to ED after having a seizure in [facility]. 1.Seizure occurred - Likely new symptom (maybe had seizure 1 week CHEF DE CUISINE, witnessed seizure 11/29). Apparently Keppra had been stopped postoperatively prior to this event. - Possible etiology: prior surgery, infection, medications, previous TBI, and recent SAH/SDH - CT head: no acute/new findings, similar appearance of small amount of subdural blood - No seizures noted on EEG - Discussed MRI brain findings with Neurosurgery 12/02; recommend continuing Keppra at renal dosing.Again discussed possible meningitis with Neurosurgery (LGF, after seizure). Images reviewed and they do not think source of her infection is meningitis (per resident Monique Dahl, discussed with Dr. Bangura). - In light of LGF with new seizure, had LP in IR. Choe partially pending so far but 15 nucleated cells. Cytology neg Cultures neg. Cryptococc ag negative. Fu the rest of the results. Had abx started 12/03- plan 7d 2.Fever, low grade and unclear significance External Otitis Headache - No photophobia on exam - CXR negative for infiltrate - No urinary symptoms and admission UA negative for infection. - Started empiric ceftriaxone and vancomycin (limited by JORGE) and added ampicillin today. Broadenedceftriaxone to cefepime because pseudomonas noted from sputum culture. This pseudomonas is likely colonization because she does not have respiratory symptoms so would have low threshold to narrow once CSF cultures are back. - Started Cortisporin gtt QID right ear 12/01, stopped per patient request. 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 Discussed with Neurosurgery 12/01. They have evaluated and there are no surgical recommendations. Will continue with plans for continuing OPchemotherapy pending other medical issues. - Discussed with Med Onc on rounds today. Chronic Conditions or Resolved issues: Diplopia, resolved - No changes on MRI brain to explain this symptom. Atrial flutter/fibrillation, uncontrolled with RVR - Followed by [facility]ology for atrial flutter/fibrillation; history of ablation - Noted to be mostly in NSR on tele; intermittent, short episodes of AF with RVR, asymptomatic. History of bradycardia and hypotension with higher doses of metoprolol. Home dose 50mg BID but here titrating up and was at 25mg TID. OK to give extra dose if needed. Monitoring lytes and trying to keep K/Mg at 4/2 respectively. - Home meds: lasix, spiralactone, htcz-triamterene, metoprolol, losartan. Per sister, not taking most of these. . Will add back GDMT as BP allows. - Have been holding anticoagulation due to recent SAH/SDH on 11/15. The initial plan was to hold for 2 weeks so she is in the window to restart. Discussed with her, planning to start therapeutic Lovenox (but holding dose due to plans for LP). HYPOKALEMIA- replaced. Recheck in am HYPOMAGNESEMIA- replaced. Recheck in am Type II DM, controlled - Last A1c, 08/2024: 6.3% - home regimen: metformin, Januvia - Hospital regimen: Insulin sliding scale Anemia, chronic disease - monitor, transfuse for hgb < 7.0 HTN - meds as above HLD - atorvastatin COPD on 2L NC- no signs of exacerbation, home meds: Breztri, cetirizine, montelukast, continue + duo nebs prn GERD - protonix, tums Chronic hypomagnesemia - Mag oxide Anxiety/Depression - hydroxyzine, fluoxetine Neuropathy/Chronic Pain -gabapentin, dose reduced for JORGE Chemo induced Nausea and Vomiting - Zofran and Compazine IVF: Saline lock. Hypokalemia - replaced orally. Hypomagnesemia - replaced IV and orally. Diet: Adult diet Diet texture: Regular; Carbohydrate restriction: Consistent Carb 2 (80 gm max/meal); Sodium restriction: 2,000 mg Na Last bowel movement: 12/05/24 Lines/Tubes: PIV Venous thromboembolism prophylaxis: SCDs only Code status: Full Code Discharge planning Anticipate home. Spouse 2 months ago so now lives alone. She is planning to stay with her sister short term. Sister confirms. Sister at bedside. Room Server also echoed need to comply with MDand RN instructions. Medically Ready for Discharge: [1] calcium-vitamin D, 1 tablet, Oral, Daily cetirizine, 5 mg, Oral, Daily cyanocobalamin, 1,000 mcg, Oral, Daily [Held by provider] enoxaparin, 1 mg/kg, Subcutaneous, q12h ferrous sulfate, 324 mg, Oral, Daily with breakfast FLUoxetine, 40 mg, Oral, Daily furosemide, 40 mg, Oral, Daily gabapentin, 100 mg, Oral, 4x daily insulin lispro, 0-5 Units, Subcutaneous, TID with meals insulin lispro, 0-3 Units, Subcutaneous, Twice at night [START ON 12/10/2024] levETIRAcetam, 1,000 mg, Oral, BID levETIRAcetam, 750 mg, Oral, BID magnesium oxide, 400 mg, Oral, BID melatonin, 6 mg, Oral, Nightly metoprolol tartrate, 25 mg, Oral, TID Tiotropium [place] Monohydrate, 2 puff, Inhalation, Daily And mometasone-formoterol, 2 puff, Inhalation, BID montelukast, 10 mg, Oral, Nightly nystatin, , Topical, BID pantoprazole, 40 mg, Oral, Daily sodium chloride, 10 mL, Intravenous, q12h [2] [3] PRN medications: acetaminophen, calcium carbonate, glucose OR dextrose 10 % OR [id number] % OR glucagon (human recombinant), hydrOXYzine HCl, ipratropium-albuterol, Alum & Mag hydroxide, Zinc Oxide, Cholestyramine, magic mouthwash BLM, ondansetron ODT OR ondansetron OR ondansetron, polyethylene glycol, prochlorperazine, [COMPLETED] Insert peripheral IV AND Saline lock IV AND sodium chloride AND sodium chloride * Progress Notes - Lourdes Mckeon - 12/09/2024 12:13 PM EDT Case Management Adult Progress Note Teresa Rivera 64 y.o. female CSN: [id number] Admission: 11/29/2024 3:11 PM Primary Problem: Seizures (CMS/HCC) Anticipated Discharge Date: Unknown. Has Discharge Plans Changed? Disposition is home with support from family and resumption of HH. PT/OT recs are home with 08/12 assistance and HH PT/OT. Pt is current with [facility] . SW will send resumption of care orders at d/c. Medically Ready for Discharge: Anticipated in 2-4 Days Additional Comments Per medical team, JORGE is improving. Not yet medically ready. SW will continue to follow. Lourdes Mckeon * Care Plan - Luis Angel Cantu - 12/09/2024 10:25 AM EDT Problem: Adult Inpatient Plan of Care Goal: Plan of Care Review Outcome: Ongoing, Progressing Flowsheets Taken 12/08/2024 1433 by Tootie Sullivan, RN Outcome Evaluation: Plan of care reviewed with patient, all questions answered with patient verbalizing understanding. Plan of Care Reviewed With: patient Taken 12/07/2024 0921 by Rupa Pierce, RN Progress: improving Goal: Patient-Specific Goal (Individualized) Outcome: Ongoing, Progressing Flowsheets (Taken 12/09/2024 0750) Patient/Family-Specific Goals (Include Timeframe): Patient will remain free from falls on 12/09/24 from [id number] Individualized Care Needs: safety Anxieties, Fears or Concerns: None stated Goal: Absence of Hospital-Acquired Illness or Injury Outcome: Ongoing, Progressing Intervention: Identify and Manage Fall Risk Flowsheets (Taken 12/09/2024 1000) Safety Promotion/Fall Prevention: activity supervised assistive device/personal items within reach clutter-free environment maintained lighting adjusted fall prevention program maintained nonskid shoes/slippers when out of bed room organization consistent safety round/check completed toileting scheduled Intervention: Prevent Skin Injury Flowsheets Taken 12/09/2024 1000 by Luis Angel Cantu Body Position: supine weight shifting Taken 12/09/2024 0038 by Lila Shin Skin Protection: incontinence pads utilized protective footwear used Intervention: Prevent and Manage VTE (Venous Thromboembolism) Risk Flowsheets (Taken 12/09/2024 1000) VTE Prevention/Management: bilateral SCDs (sequential compression devices) on Intervention: Prevent Infection Flowsheets (Taken 12/09/202437 by Lila Shin) Infection Prevention: hand hygiene promoted rest/sleep promoted single patient room provided Goal: Optimal Comfort and Wellbeing Outcome: Ongoing, Progressing Intervention: Monitor Pain and Promote Comfort Flowsheets (Taken 12/08/2024 1433 by Tootie Sullivan, RN) Pain Management Interventions: relaxation techniques promoted Intervention: Provide Person-Centered Care Flowsheets (Taken 12/09/202437 by Lila Shin) Trust Relationship/Rapport: care explained emotional support provided questions answered reassurance provided Goal: Readiness for Transition of Care Outcome: Ongoing, Progressing Intervention: Mutually Develop Transition Plan Flowsheets Taken 12/09/202437 by Lila Shin Discharge Facility/Level of Care Needs: 1-Home or Self Care Current Discharge Risk: chronically ill Readmission Within the Last 30 Days: no previous admission in last 30 days Taken 12/08/2024 1433 by Tootie Sullivan RN Equipment Currently Used at Home: commode chair walker, rollator pulse oximeter glucometer Current Outpatient/Agency/Support Group: homecare agency Taken 12/07/2024 0004 by Erin Hardwick RN Anticipated Changes Related to Illness: inability to care for self Transportation Concerns: none Offered/Gave Vendor List: other (see comments) Taken 12/06/2024 0050 by Erin Hardwick RN Transportation Anticipated: family or friend will provide Concerns to be Addressed: adjustment to diagnosis/illness coping/stress Patient/Family Anticipated Services at Transition: ed case manager outpatient care Patient's Choice of Community Agency(s): per case management Patient/Family Anticipates Transition to: home with family Taken 12/03/2024 194 by Pepper Madden Discharge Coordination/Progress: per case management Problem: Fluid Volume Excess Goal: Fluid Balance Outcome: Ongoing, Progressing Intervention: Monitor and Manage Hypervolemia Flowsheets (Taken 12/09/202437 by Lila Shin) Fluid/Electrolyte Management: fluids provided Skin Protection: incontinence pads utilized protective footwear used Problem: Fall Injury Risk Goal: Absence of Fall and Fall-Related Injury Outcome: Ongoing, Progressing Intervention: Identify and Manage Contributors Flowsheets (Taken 12/09/202437 by Lila Shin) Medication Review/Management: medications reviewed high-risk medications identified Self-Care Promotion: independence encouraged BADL personal objects within reach BADL personal routines maintained Intervention: Promote Injury-Free Environment Flowsheets (Taken 12/09/2024 1000) Safety Promotion/Fall Prevention: activity supervised assistive device/personal items within reach clutter-free environment maintained lighting adjusted fall prevention program maintained nonskid shoes/slippers when out of bed room organization consistent safety round/check completed toileting scheduled Problem: Skin Injury Risk Increased Goal: Skin Health and Integrity Outcome: Ongoing, Progressing Intervention: Optimize Skin Protection Flowsheets Taken 12/09/2024 1000 by Luis Angel Cantu Activity Management: up in chair Taken 12/09/202437 by Lila Shin Pressure Reduction Techniques: heels elevated off bed Pressure Reduction Devices: positioning supports utilized Skin Protection: incontinence pads utilized protective footwear used Taken 12/08/2024 1610 by Tootie Sullivan RN Head of Bed (HOB) Positioning: HOB at 20-30 degrees Intervention: Promote and Optimize Oral Intake Flowsheets (Taken 12/08/2024 1433 by Tootie Sullivan, JOSE MARTIN) Oral Nutrition Promotion: calorie-dense liquids provided Nutrition Interventions: diet liberalized food preferences provided Problem: Infection Goal: Absence of Infection Signs and Symptoms Outcome: Ongoing, Progressing Intervention: Prevent or Manage Infection Flowsheets Taken 12/09/2024 1000 by Luis Angel Cantu Isolation Precautions: contact precautions maintained Taken 12/09/2024 003 by Lila Shin Infection Management: aseptic technique maintained Taken 12/08/2024 1433 by Tootie Sullivan, JOSE MARTIN Fever Reduction/Comfort Measures: lightweight clothing Problem: Diabetes Goal: Blood Glucose Level Within Target Range Outcome: Ongoing, Progressing Intervention: Optimize Glycemic Control Flowsheets (Taken 12/09/202437 by Lila Shin) Hyperglycemia Management: blood glucose monitored Goal: Minimize Hypoglycemia Risk Outcome: Ongoing, Progressing Intervention: Minimize and Manage Hypoglycemia Flowsheets (Taken 12/09/202437 by Lila Shin) Hypoglycemia Management: blood glucose monitored Problem: Seizure, Active Management Goal: Absence of Seizure/Seizure-Related Injury Outcome: Ongoing, Progressing Intervention: Prevent Seizure-Related Injury Flowsheets Taken 12/09/202437 by Lila Shin Sensory Stimulation Regulation: care clustered quiet environment promoted Seizure Precautions: clutter-free environment maintained side rails padded activity supervised Taken 12/07/2024 09 by Rupa Pierce RN Aspiration Prevention During Seizure: (no seizure activity) other (see comments) Problem: Acute Kidney Injury/Impairment Goal: Effective Renal Function Outcome: Ongoing, Progressing Intervention: Monitor and Support Renal Function Flowsheets (Taken 12/09/202437 by Lila Shin) Stabilization Measures: legs elevated Medication Review/Management: medications reviewed high-risk medications identified Problem: Pain Acute Goal: Optimal Pain Control and Function Outcome: Ongoing, Progressing Intervention: Optimize Psychosocial Wellbeing Flowsheets Taken 12/09/202437 by Lila Shin Supportive Measures: positive reinforcement provided relaxation techniques promoted self-care encouraged verbalization of feelings encouraged Diversional Activities: smartphone television Taken 12/08/2024 1433 by Tootie Sullivan RN Spiritual Activities Assistance: hope instilled spiritual support provided personal rituals encouraged Intervention: Develop Pain Management Plan Flowsheets (Taken 12/08/2024 1433 by Tootie Sullivan RN) Pain Management Interventions: relaxation techniques promoted Intervention: Prevent or Manage Pain Flowsheets (Taken 12/09/202437 by Lila Shin) Sensory Stimulation Regulation: care clustered quiet environment promoted Bowel Elimination Promotion: adequate fluid intake promoted commode/bedpan at bedside Sleep/Rest Enhancement: awakenings minimized consistent schedule promoted regular sleep/rest pattern promoted room darkened Medication Review/Management: medications reviewed high-risk medications identified Problem: Pain Acute Goal: Optimal Pain Control and Function Outcome: Ongoing, Progressing Intervention: Optimize Psychosocial Wellbeing Flowsheets Taken 12/09/202437 by Lila Shin Supportive Measures: positive reinforcement provided relaxation techniques promoted self-care encouraged verbalization of feelings encouraged Diversional Activities: smartphone television Taken 12/08/2024 1433 by Tootie Sullivan RN Spiritual Activities Assistance: hope instilled spiritual support provided personal rituals encouraged Intervention: Develop Pain Management Plan Flowsheets (Taken 12/08/2024 1433 by Tootie Sullivan RN) Pain Management Interventions: relaxation techniques promoted Intervention: Prevent or Manage Pain Flowsheets (Taken 12/09/202437 by Lila Shin) Sensory Stimulation Regulation: care clustered quiet environment promoted Bowel Elimination Promotion: adequate fluid intake promoted commode/bedpan at bedside Sleep/Rest Enhancement: awakenings minimized consistent schedule promoted regular sleep/rest pattern promoted room darkened Medication Review/Management: medications reviewed high-risk medications identified * Care Plan - Lila Shin - 12/09/2024 12:46 AM EDT Problem: Adult Inpatient Plan of Care Goal: Plan of Care Review Outcome: Ongoing, Progressing Flowsheets Taken 12/08/2024 1433 by Tootie Sullivan RN Outcome Evaluation: Plan of care reviewed with patient, all questions answered with patient verbalizing understanding. Plan of Care Reviewed With: patient Taken 12/07/2024 0921 by Rupa Pierce RN Progress: improving Goal: Patient-Specific Goal (Individualized) Outcome: Ongoing, Progressing Flowsheets (Taken 12/08/20241999) Patient/Family-Specific Goals (Include Timeframe): patient will remain free from falls/injury during this shift Individualized Care Needs: safety Anxieties, Fears or Concerns: none stated Goal: Absence of Hospital-Acquired Illness or Injury Outcome: Ongoing, Progressing Intervention: Identify and Manage Fall Risk Flowsheets (Taken 12/08/20241999) Safety Promotion/Fall Prevention: activity supervised assistive device/personal items within reach clutter-free environment maintained lighting adjusted fall prevention program maintained nonskid shoes/slippers when out of bed room organization consistent safety round/check completed toileting scheduled Intervention: Prevent Skin Injury Flowsheets (Taken 12/09/20248) Body Position: weight shifting Skin Protection: incontinence pads utilized protective footwear used Intervention: Prevent and Manage VTE (Venous Thromboembolism) Risk Flowsheets (Taken 12/08/20241999) VTE Prevention/Management: bilateral SCDs (sequential compression devices) on Intervention: Prevent Infection Flowsheets (Taken 12/09/202437) Infection Prevention: hand hygiene promoted rest/sleep promoted single patient room provided Goal: Optimal Comfort and Wellbeing Outcome: Ongoing, Progressing Intervention: Monitor Pain and Promote Comfort Flowsheets (Taken 12/09/202437) Pain Management Interventions: pain management plan reviewed with patient/caregiver Intervention: Provide Person-Centered Care Flowsheets (Taken 12/09/202437) Trust Relationship/Rapport: care explained emotional support provided questions answered reassurance provided Goal: Readiness for Transition of Care Outcome: Ongoing, Progressing Intervention: Mutually Develop Transition Plan Flowsheets Taken 12/09/202437 by Lila Shin Discharge Facility/Level of Care Needs: 1-Home or Self Care Current Discharge Risk: chronically ill Readmission Within the Last 30 Days: no previous admission in last 30 days Taken 12/08/2024 1433 by Tootie Sullivan RN Equipment Currently Used at Home: commode chair walker, rollator pulse oximeter glucometer Current Outpatient/Agency/Support Group: homecare agency Taken 12/07/2024 0004 by Erin Hardwick RN Transportation Concerns: none Taken 12/06/2024 0050 by Erin Hardwick RN Transportation Anticipated: family or friend will provide Concerns to be Addressed: adjustment to diagnosis/illness coping/stress Patient/Family Anticipated Services at Transition: ed case manager outpatient care Patient/Family Anticipates Transition to: home with family Problem: Fluid Volume Excess Goal: Fluid Balance Outcome: Ongoing, Progressing Intervention: Monitor and Manage Hypervolemia Flowsheets (Taken 12/09/202437) Fluid/Electrolyte Management: fluids provided Skin Protection: incontinence pads utilized protective footwear used Problem: Fall Injury Risk Goal: Absence of Fall and Fall-Related Injury Outcome: Ongoing, Progressing Intervention: Identify and Manage Contributors Flowsheets (Taken 12/09/202437) Medication Review/Management: medications reviewed high-risk medications identified Self-Care Promotion: independence encouraged BADL personal objects within reach BADL personal routines maintained Intervention: Promote Injury-Free Environment Flowsheets (Taken 12/08/20241999) Safety Promotion/Fall Prevention: activity supervised assistive device/personal items within reach clutter-free environment maintained lighting adjusted fall prevention program maintained nonskid shoes/slippers when out of bed room organization consistent safety round/check completed toileting scheduled Problem: Skin Injury Risk Increased Goal: Skin Health and Integrity Outcome: Ongoing, Progressing Intervention: Optimize Skin Protection Flowsheets (Taken 12/09/202437) Activity Management: up to bedside commode Pressure Reduction Techniques: heels elevated off bed Pressure Reduction Devices: positioning supports utilized Skin Protection: incontinence pads utilized protective footwear used Head of Bed (HOB) Positioning: HOB at 20-30 degrees Intervention: Promote and Optimize Oral Intake Flowsheets (Taken 12/08/20243 by Tootie Sullivan, RN) Oral Nutrition Promotion: calorie-dense liquids provided Nutrition Interventions: diet liberalized food preferences provided Problem: Infection Goal: Absence of Infection Signs and Symptoms Outcome: Ongoing, Progressing Intervention: Prevent or Manage Infection Flowsheets (Taken 12/09/202437) Infection Management: aseptic technique maintained Isolation Precautions: contact precautions maintained Problem: Diabetes Goal: Blood Glucose Level Within Target Range Outcome: Ongoing, Progressing Intervention: Optimize Glycemic Control Flowsheets (Taken 12/09/202437) Hyperglycemia Management: blood glucose monitored Goal: Minimize Hypoglycemia Risk Outcome: Ongoing, Progressing Intervention: Minimize and Manage Hypoglycemia Flowsheets (Taken 12/09/202437) Hypoglycemia Management: blood glucose monitored Problem: Seizure, Active Management Goal: Absence of Seizure/Seizure-Related Injury Outcome: Ongoing, Progressing Intervention: Prevent Seizure-Related Injury Flowsheets (Taken 12/09/202437) Sensory Stimulation Regulation: care clustered quiet environment promoted Seizure Precautions: clutter-free environment maintained side rails padded activity supervised Problem: Acute Kidney Injury/Impairment Goal: Effective Renal Function Outcome: Ongoing, Progressing Intervention: Monitor and Support Renal Function Flowsheets (Taken 12/09/202437) Stabilization Measures: legs elevated Medication Review/Management: medications reviewed high-risk medications identified Problem: Pain Acute Goal: Optimal Pain Control and Function Outcome: Ongoing, Progressing Intervention: Optimize Psychosocial Wellbeing Flowsheets (Taken 12/09/202437) Supportive Measures: positive reinforcement provided relaxation techniques promoted self-care encouraged verbalization of feelings encouraged Diversional Activities: smartphone television Intervention: Develop Pain Management Plan Flowsheets (Taken 12/09/202437) Pain Management Interventions: pain management plan reviewed with patient/caregiver Intervention: Prevent or Manage Pain Flowsheets (Taken 12/09/202437) Sensory Stimulation Regulation: care clustered quiet environment promoted Bowel Elimination Promotion: adequate fluid intake promoted commode/bedpan at bedside Sleep/Rest Enhancement: awakenings minimized consistent schedule promoted regular sleep/rest pattern promoted room darkened Medication Review/Management: medications reviewed high-risk medications identified * Procedures - Dayana River RN - 12/08/2024 3:30 PM EDTAssociated Order(s): Insert peripheral IV Insert peripheral IV Performed by: Dayana River RN Authorized by: Jay Nicolas APRN, DNP Hand hygiene: Hand hygiene performed prior to [...] semipermeable dressing Education provided to: Patient * Care Plan - Tootie Sullivan RN - 12/08/2024 2:38 PM EDT Problem: Adult Inpatient Plan of Care Goal: Plan of Care Review Outcome: Ongoing, Progressing Flowsheets (Taken 12/08/2024 1433) Outcome Evaluation: Plan of care reviewed with patient, all questions answered with patient verbalizing understanding. Plan of Care Reviewed With: patient Note: Plan of care reviewed with patient, all questions answered with patient verbalizing understanding. Goal: Patient-Specific Goal (Individualized) Outcome: Ongoing, Progressing Flowsheets (Taken 12/08/2024 0900) Patient/Family-Specific Goals (Include Timeframe): Patient will remain free of falls and harm this shift Individualized Care Needs: safety Anxieties, Fears or Concerns: None stated Goal: Absence of Hospital-Acquired Illness or Injury Outcome: Ongoing, Progressing Intervention: Identify and Manage Fall Risk Flowsheets (Taken 12/08/2024 1221) Safety Promotion/Fall Prevention: fall prevention program maintained clutter-free environment maintained assistive device/personal items within reach activity supervised lighting adjusted nonskid shoes/slippers when out of bed room organization consistent safety round/check completed toileting scheduled Intervention: Prevent Skin Injury Flowsheets Taken 12/08/2024 1433 Skin Protection: protective footwear used incontinence pads utilized Taken 12/08/2024 1114 Body Position: left legs elevated heels elevated Intervention: Prevent and Manage VTE (Venous Thromboembolism) Risk Flowsheets (Taken 12/08/2024 1200) VTE Prevention/Management: bilateral SCDs (sequential compression devices) on education provided Intervention: Prevent Infection Flowsheets (Taken 12/08/2024 1433) Infection Prevention: hand hygiene promoted environmental surveillance performed Goal: Optimal Comfort and Wellbeing Outcome: Ongoing, Progressing Intervention: Monitor Pain and Promote Comfort Flowsheets (Taken 12/08/2024 1433) Pain Management Interventions: relaxation techniques promoted Intervention: Provide Person-Centered Care Flowsheets (Taken 12/08/2024 1433) Trust Relationship/Rapport: choices provided emotional support provided empathic listening provided questions answered questions encouraged reassurance provided care explained thoughts/feelings acknowledged Goal: Readiness for Transition of Care Outcome: Ongoing, Progressing Intervention: Mutually Develop Transition Plan Flowsheets (Taken 12/08/2024 1433) Equipment Currently Used at Home: commode chair walker, rollator pulse oximeter glucometer Current Outpatient/Agency/Support Group: homecare agency Readmission Within the Last 30 Days: no previous admission in last 30 days Problem: Fluid Volume Excess Goal: Fluid Balance Outcome: Ongoing, Progressing Intervention: Monitor and Manage Hypervolemia Flowsheets (Taken 12/08/2024 1433) Fluid/Electrolyte Management: fluids provided Skin Protection: protective footwear used incontinence pads utilized Problem: Fall Injury Risk Goal: Absence of Fall and Fall-Related Injury Outcome: Ongoing, Progressing Intervention: Identify and Manage Contributors Flowsheets (Taken 12/08/2024 1433) Medication Review/Management: medications reviewed Self-Care Promotion: independence encouraged BADL personal objects within reach BADL personal routines maintained meal set-up provided Intervention: Promote Injury-Free Environment Flowsheets (Taken 12/08/2024 1221) Safety Promotion/Fall Prevention: fall prevention program maintained clutter-free environment maintained assistive device/personal items within reach activity supervised lighting adjusted nonskid shoes/slippers when out of bed room organization consistent safety round/check completed toileting scheduled Problem: Skin Injury Risk Increased Goal: Skin Health and Integrity Outcome: Ongoing, Progressing Intervention: Optimize Skin Protection Flowsheets Taken 12/08/2024 1433 Pressure Reduction Techniques: heels elevated off bed Pressure Reduction Devices: positioning supports utilized Skin Protection: protective footwear used incontinence pads utilized Taken 12/08/2024 1221 Activity Management: activity adjusted per tolerance activity encouraged Taken 12/08/2024 0816 Head of Bed (HOB) Positioning: HOB at 20-30 degrees Intervention: Promote and Optimize Oral Intake Flowsheets (Taken 12/08/2024 1433) Oral Nutrition Promotion: calorie-dense liquids provided Nutrition Interventions: diet liberalized food preferences provided Problem: Infection Goal: Absence of Infection Signs and Symptoms Outcome: Ongoing, Progressing Intervention: Prevent or Manage Infection Flowsheets (Taken 12/08/2024 1433) Infection Management: aseptic technique maintained Fever Reduction/Comfort Measures: lightweight clothing Isolation Precautions: contact protective precautions maintained Problem: Diabetes Goal: Blood Glucose Level Within Target Range Outcome: Ongoing, Progressing Intervention: Optimize Glycemic Control Flowsheets (Taken 12/08/2024 143) Hyperglycemia Management: blood glucose monitored Goal: Minimize Hypoglycemia Risk Outcome: Ongoing, Progressing Intervention: Minimize and Manage Hypoglycemia Flowsheets (Taken 12/08/2024 143) Hypoglycemia Management: blood glucose monitored Problem: Seizure, Active Management Goal: Absence of Seizure/Seizure-Related Injury Outcome: Ongoing, Progressing Intervention: Prevent Seizure-Related Injury Flowsheets (Taken 12/08/2024 143) Sensory Stimulation Regulation: quiet environment promoted Seizure Precautions: soft boundaries provided side rails padded clutter-free environment maintained activity supervised Problem: Acute Kidney Injury/Impairment Goal: Effective Renal Function Outcome: Ongoing, Progressing Intervention: Monitor and Support Renal Function Flowsheets (Taken 12/08/2024 143) Medication Review/Management: medications reviewed Problem: Pain Acute Goal: Optimal Pain Control and Function Outcome: Ongoing, Progressing Intervention: Optimize Psychosocial Wellbeing Flowsheets (Taken 12/08/2024 1433) Supportive Measures: goal-setting facilitated active listening utilized self-care encouraged relaxation techniques promoted problem-solving facilitated positive reinforcement provided mindfulness techniques promoted self-reflection promoted self-responsibility promoted verbalization of feelings encouraged Diversional Activities: smartphone Spiritual Activities Assistance: hope instilled spiritual support provided personal rituals encouraged Intervention: Develop Pain Management Plan Flowsheets (Taken 12/08/2024 143) Pain Management Interventions: relaxation techniques promoted Intervention: Prevent or Manage Pain Flowsheets (Taken 12/08/2024 1433) Sensory Stimulation Regulation: quiet environment promoted Bowel Elimination Promotion: adequate fluid intake promoted Medication Review/Management: medications reviewed * Consults - Eva West, RD - 12/08/2024 10:38 AM EDT Adult Nutrition Evaluation Note Teresa Rivera 64 y.o. female CSN: [id number] Room/Bed 120/120A Nutrition evaluation type: follow up Reason for evaluation: Hospital course: 64 y.o. F presenting after a seizure in the [facility]. Pt found to have anemia, JORGE, hypomagnesium, and elevated lactate. 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 Pt at risk of malnutrition. Will add Boost GC BID. Encourage adequate po intake 12/08: Visited patient room. Performed NFPE. Pt denied N/V/D. Mentioned she had low appetite. Reported no recent unintentional weight loss. Requested Boost flavor to change to chocolate. Vitals and Basic Assessment: BP: 125/59 Temp: 36.3 ??C (97.4 ??F) Oxygen Therapy: Supplemental oxygen O2 Delivery Method: Nasal cannula Ruffs Dale Coma Scale Score: 15 Rosendo Scale Score: 17 Most Recent BM Date: 12/07/24 GI Symptoms: None Edema: Generalized Allergies: NKFA Medications: Current Scheduled Medications[3] Labs: Lab Results Component Value Date GLUCOSE 138 (H) 12/07/2024 CALCIUM 8.7 (L) 12/07/2024 NA 142 12/07/2024 K 3.7 12/07/2024 CO2 26 12/07/2024 CL 103 12/07/2024 BUN 10 12/07/2024 CREATININE 1.74 (H) 12/07/2024 PHOS 3.7 11/30/2024 MG 1.8 (L) 12/07/2024 HGBA1C 6.3 (H) 09/02/2024 Anthropometrics: Height: 170.2 cm (5' 7 ) Weight: 114 kg (251 lb 1.7 oz) BMI (Calculated): 39.32 Weight Evaluation: Obese-Class 2 (BMI 35-39.9) Weight History: 20# (7.2%) wt loss x 2 months Eckerman Body Weight (kg): 61.6 Percent Eckerman Body Weight: 186 Adjusted Body Weight (kg): 74 Wt Readings from Last 20 Encounters: 12/08/24 114 kg (251 lb 1.7 oz) 12/01/24 114 kg (251 lb) 11/29/24 121 kg (267 lb 6.7 oz) 11/29/24 122 kg (268 lb 11.9 oz) 11/21/24 117 kg (257 lb 8 oz) 11/15/24 120 kg (263 lb 7.2 oz) 11/10/24 118 kg (259 lb 7.7 oz) 11/09/24 118 kg (260 lb 12.9 oz) 11/08/24 118 kg (259 lb 11.2 oz) 11/08/24 117 kg (257 lb 4.4 oz) 11/01/24 116 kg (255 lb 15.3 oz) 10/27/24 114 kg (250 lb 14.1 oz) 10/25/24 119 kg (262 lb) 10/12/24 119 kg (262 lb) 10/12/24 119 kg (262 lb 5.6 oz) 10/06/24 119 kg (262 lb 12.6 oz) 10/05/24 118 kg (261 lb 0.4 oz) 10/04/24 117 kg (257 lb 15 oz) 10/04/24 117 kg (258 lb 13.1 oz) 09/26/24 124 kg (274 lb 7.6 oz) 20# (7.2%) wt loss x 2 months (not significant) Estimated Needs: Kcal/ K-30 Kcal Provided: 2781-9607 Kcal Needs Based On: Adjusted weight Gm Protein/ Kg : 1.0-1.2 Protein Provided: 74-89 Protein Needs Based On: Adjusted weight Metabolic Cart Study Results: Current Nutrition Intake: Diet Supplements: Boost Glucose Control Diet Order: Adult Diet Diet Texture: Regular Adult Carbohydrate Restriction: Consistent CHO 2 (9740-0815 Luis, 80 g/meal) Adult Sodium Restriction: 2,000 mg Na Percent Meals Eaten (%): 20% x last 6 recorded meals (12/05-12/07) Diet Experience and Nutrition History: Diet Education Provided: Will monitor Pertinent home medications: Calcium carb vitamin D, ferrous sulfate, lasix, mag- ox, metformin, zofran, probiotic, compazine, januvia, vitamin B12, jardiance, lantus, aldactone Baptism needs: -- Nutrition Focused Physical Exam: Physical exam performed on (date): 12/08 Temples (muscles): None Clavicle (muscle): None Shoulder (muscle): None Scapula (muscle): None Thigh (muscle): None Orbital (fat): None Triceps (fat): None Weight Loss: 20# (7.2%) wt loss x 2 months Assessment of Malnutrition: Malnutrition Identified: No Nutrition Problem: Predicted suboptimal energy intake related to inability to consume adequate nutrients as evidenced by 20# wt loss x 2 months, consuming 50% or less of meals so far. Status of Nutrition Diagnosis: ongoing Nutrition Interventions and Recommendations: .- Rec diet order to NCS, No added salt - Boost VHC daily, chocolate - Recommend obtaining weight weekly - Please document meal intake in flowsheet Nutrition Monitoring and Goals: - Will monitor PO intake/EN infusion, weight, skin, labs, nutrition status - Pt will maintain body weight throughout hospital admission - NFPE on follow up Acuity Level: [address] [1] Past Surgical History: Procedure Laterality Date BRAIN SURGERY TUBAL LIGATION N/A Tubal Ligation from [facility] TYMPANOSTOMY TUBE PLACEMENT N/A Ear Surgery Eustachian Tube from [facility] [2] Social History Tobacco Use Smoking status: Former Current packs/day: 0.00 Average packs/day: 1.5 packs/day for 48.4 years (72.6 ttl pk-yrs) Types: Cigarettes Start date: 1975 Quit date: 10/17/2023 Years since quittin.1 Passive exposure: Past Smokeless tobacco: Never Vaping Use Vaping status: Never Used Substance Use Topics Alcohol use: Never Drug use: Never [3] ampicillin, 2 g, Intravenous, q6h calcium-vitamin D, 1 tablet, Oral, Daily cefepime, 2 g, Intravenous, q12h cetirizine, 5 mg, Oral, Daily cyanocobalamin, 1,000 mcg, Oral, Daily [Held by provider] enoxaparin, 1 mg/kg, Subcutaneous, q12h ferrous sulfate, 324 mg, Oral, Daily with breakfast FLUoxetine, 40 mg, Oral, Daily furosemide, 40 mg, Oral, Daily gabapentin, 100 mg, Oral, 4x daily insulin lispro, 0-5 Units, Subcutaneous, TID with meals insulin lispro, 0-3 Units, Subcutaneous, Twice at night levETIRAcetam, 750 mg, Oral, BID magnesium oxide, 400 mg, Oral, BID melatonin, 6 mg, Oral, Nightly metoprolol tartrate, 25 mg, Oral, TID Tiotropium [place] Monohydrate, 2 puff, Inhalation, Daily AND mometasone- formoterol, 2 puff, Inhalation, BID montelukast, 10 mg, Oral, Nightly nystatin, , Topical, BID pantoprazole, 40 mg, Oral, Daily Insert peripheral IV, , , Once AND Saline lock IV, , , Once AND sodium chloride, 10 mL, Intravenous, q12h AND sodium chloride, 10 mL, Intravenous, PRN vancomycin (Vancocin) intermittent dosing, 1 each, Intravenous, See admin instructions Cosigned by Daya Rucker RD at 12/08/2024 2:32 PM EDT * Progress Notes - Rupa Minaya - 12/08/2024 9:53 AM EDT Pharmacokinetic Consult - Therapeutic Drug Monitoring HPI and Hospital Course: Teresa Rivera is a 64 y.o. female presenting with seizures Pharmacy consulted to assist with management of vancomycin therapy for possible meningitis. Random concentration therapeutic drug monitoring performed due to unstable renal function. Creatinine, Plasma (mg/dL) Date/Time Value 12/07/2024 0351 1.74 (H) Estimated Creatinine Clearance: 42.6 mL/min (A) (by C-G formula based on SCr of 1.74 mg/dL (H)). Vancomycin, Random, Plasma (ug/mL) Date/Time Value 12/08/2024 0337 30.3 Renal function w/ Scr not assessed today. Vancomycin dose given late yesterday thus not appropriatefor dosing. Will continue to monitor. Assessment/Plan 1. Patient is Not appropriate for redosing at this time. Recommend to hold dose at this time and assess further vancomycin clearance prior to redose. 2. Monitor renal function (SCr and BUN) and UOP at least 2-3x weekly or more frequently if renal function changes. 3. Recommend random vancomycin level with AM labs on 12/09. Pharmacy will continue to follow. Rupa Minaya 12/08/2024 9:52 AM Cosigned by Bairon Hernandez PharmD at 12/08/2024 1:03 PM EDT Associated attestation - Bairon Hernandez PharmD - 12/08/2024 1:03 PM EDT I have reviewed the note above and agree with the recommendations. Giorgio Hernandez, Sammy, BCPS * Progress Notes - Bernice Eckert MD - 12/08/2024 9:41 AM EDT Subjective No complaints per pt except that she doesn't like the food here and she has ANGELA. Some tremors in R leg and arm . Son present for visit via Mister Mario on the patient's phone Review of Systems Current Scheduled Medications[1] Current Continuous Medications[2] Current PRN Medications[3] Objective Vitals Temp: [36.6 ??C (97.9 ??F)-37 ??C (98.6 ??F)] 36.8 ??C (98.3 ??F) Heart Rate: [68-73] 73 Resp: [18] 18 BP: (115-146)/(56-76) 127/60 Physical Exam HENT: Head: Normocephalic. Eyes: Conjunctiva/sclera: Conjunctivae normal. Pulmonary: Effort: Pulmonary effort is normal. No respiratory distress. Abdominal: Palpations: Abdomen is soft. Neurological: Mental Status: She is alert and oriented to person, place, and time. Psychiatric: Mood and Affect: Mood normal. Behavior: Behavior normal. Thought Content: Thought content normal. Judgment: Judgment normal. Labs in last 18 hours CBC WBC ?? Hb ?? Plt ?? Hct ?? ANC ?? INR ??, PTT ??, Anti-Xa ?? BMP Na ?? Cl ?? BUN ?? Glu ?? K ?? Co2 ?? Cr ?? Ca ?? iCa ?? Mg ??, Phos ?? Lactate ?? LFT AST ?? AlkPhos ?? T Prot ?? ALK ?? Bili ?? Alb ?? D.Bili ?? 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CMS/HCC) Anemia Anxiety COPD (chronic obstructive pulmonary disease) (CMS/HCC) Diabetes mellitus (CMS/HCC) Essential hypertension Mixed hyperlipidemia Hypomagnesemia Neuropathy A-fib (CMS/HCC) Heart failure JORGE (acute kidney injury) (CMS/HCC) Teresa Rivera is a 64 yof with SCLCA with metastasis to brain s/p craniotomy and recent SAH/SDH who was transferred to ED after having a seizure in [facility] infusion clinic. 1.Seizure occurred - Likely new symptom (maybe had seizure 1 week CHEF DE CUISINE, witnessed seizure 11/29). Apparently Keppra had been stopped postoperatively prior to this event. - Possible etiology: prior surgery, infection, medications, previous TBI, and recent SAH/SDH - CT head: no acute/new findings, similar appearance of small amount of subdural blood - No seizures noted on EEG - Discussed MRI brain findings with Neurosurgery 12/02; recommend continuing Keppra at renal dosing.Again discussed possible meningitis with Neurosurgery (LGF, after seizure). Images reviewed and they do not think source of her infection is meningitis (per resident Monique Dahl, discussed with Dr. Bangura). - In light of LGF with new seizure, had LP in IR. Choe partially pending so far but 15 nucleated cells. Cytology neg Cultures neg. Cryptococc ag negative. Fu the rest of the results. Had abx started 12/03- plan 7d Pt requesting to ask neurology about strting topamax for ANGELA given that her son had seizures and angela iso brain tumor and found this to be helpful. 2.Fever, low grade and unclear significance External Otitis Headache - No photophobia on exam - CXR negative for infiltrate - No urinary symptoms and admission UA negative for infection. - Started empiric ceftriaxone and vancomycin (limited by JORGE) and added ampicillin today. Broadenedceftriaxone to cefepime because pseudomonas noted from sputum culture. This pseudomonas is likely colonization because she does not have respiratory symptoms so would have low threshold to narrow once CSF cultures are back. - Started Cortisporin gtt QID right ear 12/01, stopped per patient request. 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 Discussed with Neurosurgery 12/01. They have evaluated and there are no surgical recommendations. Will continue with plans for continuing OPchemotherapy pending other medical issues. - Discussed with Med Onc on rounds today. Chronic Conditions or Resolved issues: Diplopia, resolved - No changes on MRI brain to explain this symptom. Atrial flutter/fibrillation, uncontrolled with RVR - Followed by cardiology for atrial flutter/fibrillation; history of ablation - Noted to be mostly in NSR on tele; intermittent, short episodes of AF with RVR, asymptomatic. History of bradycardia and hypotension with higher doses of metoprolol. Home dose 50mg BID but here titrating up and was at 25mg TID. OK to give extra dose if needed. Monitoring lytes and trying to keep K/Mg at 4/2 respectively. - Home meds: lasix, spiralactone, htcz-triamterene, metoprolol, losartan. Per sister, not taking most of these. . Will add back GDMT as BP allows. - Have been holding anticoagulation due to recent SAH/SDH on 11/15. The initial plan was to hold for 2 weeks so she is in the window to restart. Discussed with her, planning to start therapeutic Lovenox (but holding dose due to plans for LP). HYPOKALEMIA- replaced. Recheck in am HYPOMAGNESEMIA- replaced. Recheck in am Type II DM, controlled - Last A1c, 08/2024: 6.3% - home regimen: metformin, Januvia - Hospital regimen: Insulin sliding scale Anemia, chronic disease - monitor, transfuse for hgb < 7.0 HTN - meds as above HLD - atorvastatin COPD on 2L NC- no signs of exacerbation, home meds: Breztri, cetirizine, montelukast, continue + duo nebs prn GERD - protonix, tums Chronic hypomagnesemia - Mag oxide Anxiety/Depression - hydroxyzine, fluoxetine Neuropathy/Chronic Pain -gabapentin, dose reduced for JORGE Chemo induced Nausea and Vomiting - Zofran and Compazine IVF: Saline lock. Hypokalemia - replaced orally. Hypomagnesemia - replaced IV and orally. Diet: Adult diet Diet texture: Regular; Carbohydrate restriction: Consistent Carb 2 (80 gm max/meal); Sodium restriction: 2,000 mg Na Last bowel movement: 12/05/24 Lines/Tubes: PIV Venous thromboembolism prophylaxis: SCDs only Code status: Full Code Discharge planning Anticipate home. Spouse 2 months ago so now lives alone. She is planning to stay with her sister short term. Sister confirms. Sister at bedside. Room Server also [facility] Ready for Discharge: [1] ampicillin, 2 g, Intravenous, q6h calcium-vitamin D, 1 tablet, Oral, Daily cefepime, 2 g, Intravenous, q12h cetirizine, 5 mg, Oral, Daily cyanocobalamin, 1,000 mcg, Oral, Daily [Held by provider] enoxaparin, 1 mg/kg, Subcutaneous, q12h ferrous sulfate, 324 mg, Oral, Daily with breakfast FLUoxetine, 40 mg, Oral, Daily furosemide, 40 mg, Oral, Daily gabapentin, 100 mg, Oral, 4x daily insulin lispro, 0-5 Units, Subcutaneous, TID with meals insulin lispro, 0-3 Units, Subcutaneous, Twice at night levETIRAcetam, 750 mg, Oral, BID magnesium oxide, 400 mg, Oral, BID melatonin, 6 mg, Oral, Nightly metoprolol tartrate, 25 mg, Oral, TID Tiotropium [place] Monohydrate, 2 puff, Inhalation, Daily And mometasone-formoterol, 2 puff, Inhalation, BID montelukast, 10 mg, Oral, Nightly nystatin, , Topical, BID pantoprazole, 40 mg, Oral, Daily sodium chloride, 10 mL, Intravenous, q12h vancomycin (Vancocin) intermittent dosing, 1 each, Intravenous, See admin instructions [2] [3] PRN medications: acetaminophen, calcium carbonate, glucose OR dextrose 10 % OR [id number] % OR glucagon (human recombinant), hydrOXYzine HCl, ipratropium-albuterol, Alum & Mag hydroxide, Zinc Oxide, Cholestyramine, magic mouthwash BLM, ondansetron ODT OR ondansetron OR ondansetron, polyethylene glycol, prochlorperazine, Insert peripheral IV AND Saline lock IV AND sodium chloride AND sodium chloride * Care Plan - Catirna Antonio - 12/08/2024 3:14 AM EDT Problem: Adult Inpatient Plan of Care Goal: Plan of Care Review Outcome: Ongoing, Progressing Flowsheets (Taken 12/07/2024920 by Rupa Pierce, RN) Progress: improving Outcome Evaluation: Plan of care reviewed with patient. Verbalized understading. Plan of Care Reviewed With: patient Goal: Patient-Specific Goal (Individualized) Outcome: Ongoing, Progressing Flowsheets (Taken 12/07/20241999) Patient/Family-Specific Goals (Include Timeframe): Will be free of falls throughout shift Individualized Care Needs: Safety Anxieties, Fears or Concerns: none stated Goal: Absence of Hospital-Acquired Illness or Injury Outcome: Ongoing, Progressing Intervention: Identify and Manage Fall Risk Flowsheets (Taken 12/07/20241999) Safety Promotion/Fall Prevention: activity supervised assistive device/personal items within reach clutter-free environment maintained fall prevention program maintained nonskid shoes/slippers when out of bed safety round/check completed Intervention: Prevent Skin Injury Flowsheets Taken 12/08/2024 0200 by Halle House Body Position: weight shifting Taken 12/07/2024920 by Pierce, Rupa G, RN Skin Protection: protective footwear used Intervention: Prevent and Manage VTE (Venous Thromboembolism) Risk Flowsheets (Taken 12/08/2024 0000) VTE Prevention/Management: bilateral SCDs (sequential compression devices) off Intervention: Prevent Infection Flowsheets (Taken 12/06/2024 0050 by Erin Hardwick RN) Infection Prevention: hand hygiene promoted single patient room provided equipment surfaces disinfected rest/sleep promoted environmental surveillance performed Goal: Optimal Comfort and Wellbeing Outcome: Ongoing, Progressing Intervention: Monitor Pain and Promote Comfort Flowsheets (Taken 12/07/2024 1626 by Rupa Pierce, RN) Pain Management Interventions: medication (see MAR) Intervention: Provide Person-Centered Care Flowsheets (Taken 12/07/2024 0921 by Rupa Pierce, RN) Trust Relationship/Rapport: care explained choices provided emotional support provided empathic listening provided questions answered Goal: Readiness for Transition of Care Outcome: Ongoing, Progressing Intervention: Mutually Develop Transition Plan Flowsheets Taken 12/07/2024 0004 by Erin Hardwick RN Anticipated Changes Related to Illness: inability to care for self Transportation Concerns: none Readmission Within the Last 30 Days: previous discharge plan unsuccessful Offered/Gave Vendor List: other (see comments) Taken 12/06/2024 0050 by Erin Hardwick RN Equipment Currently Used at Home: walker, rollator commode chair Transportation Anticipated: family or friend will provide Current Discharge Risk: chronically ill Concerns to be Addressed: adjustment to diagnosis/illness coping/stress Patient/Family Anticipated Services at Transition: ed case manager outpatient care Patient's Choice of Community Agency(s): per case management Patient/Family Anticipates Transition to: home with family Taken 12/05/2024 0147 by Erma Cary RN Current Outpatient/Agency/Support Group: homecare agency Taken 12/03/2024 1945 by Pepper Madden Discharge Coordination/Progress: per case management Problem: Fluid Volume Excess Goal: Fluid Balance Outcome: Ongoing, Progressing Intervention: Monitor and Manage Hypervolemia Flowsheets (Taken 12/07/2024 0921 by Rupa Pierce, RN) Fluid/Electrolyte Management: fluids adjusted Skin Protection: protective footwear used Problem: Fall Injury Risk Goal: Absence of Fall and Fall-Related Injury Outcome: Ongoing, Progressing Intervention: Identify and Manage Contributors Flowsheets (Taken 12/07/2024920 by Rupa Pierce, RN) Medication Review/Management: medications reviewed Self-Care Promotion: independence encouraged BADL personal objects within reach meal set-up provided Intervention: Promote Injury-Free Environment Flowsheets (Taken 12/07/20241999) Safety Promotion/Fall Prevention: activity supervised assistive device/personal items within reach clutter-free environment maintained fall prevention program maintained nonskid shoes/slippers when out of bed safety round/check completed Problem: Skin Injury Risk Increased Goal: Skin Health and Integrity Outcome: Ongoing, Progressing Intervention: Optimize Skin Protection Flowsheets Taken 12/07/20241999 by Halle House Activity Management: up in chair Taken 12/07/2024920 by Rupa Pierce RN Pressure Reduction Techniques: heels elevated off bed Skin Protection: protective footwear used Head of Bed (HOB) Positioning: HOB elevated Taken 12/07/2024 0004 by Erin Hardwick RN Pressure Reduction Devices: positioning supports utilized Intervention: Promote and Optimize Oral Intake Flowsheets (Taken 12/06/2024 0050 by Erin Hardwick, JOSE MARTIN) Oral Nutrition Promotion: calorie-dense foods provided Nutrition Interventions: food preferences provided Problem: Infection Goal: Absence of Infection Signs and Symptoms Outcome: Ongoing, Progressing Intervention: Prevent or Manage Infection Flowsheets Taken 12/07/20241999 by Catrina Antonio Isolation Precautions: contact precautions maintained Taken 12/07/2024920 by Rupa Pierce, RN Infection Management: aseptic technique maintained Fever Reduction/Comfort Measures: lightweight bedding lightweight clothing Problem: Diabetes Goal: Blood Glucose Level Within Target Range Outcome: Ongoing, Progressing Intervention: Optimize Glycemic Control Flowsheets (Taken 12/07/2024920 by Rupa Pierce, RN) Hyperglycemia Management: blood glucose monitored Goal: Minimize Hypoglycemia Risk Outcome: Ongoing, Progressing Intervention: Minimize and Manage Hypoglycemia Flowsheets (Taken 12/07/2024920 by Rupa Pierce, RN) Hypoglycemia Management: blood glucose monitored Problem: Seizure, Active Management Goal: Absence of Seizure/Seizure-Related Injury Outcome: Ongoing, Progressing Intervention: Prevent Seizure-Related Injury Flowsheets (Taken 12/07/2024920 by Rupa Pierce, RN) Sensory Stimulation Regulation: television on quiet environment promoted Aspiration Prevention During Seizure: (no seizure activity) other (see comments) Seizure Precautions: clutter-free environment maintained activity supervised Problem: Acute Kidney Injury/Impairment Goal: Effective Renal Function Outcome: Ongoing, Progressing Intervention: Monitor and Support Renal Function Flowsheets (Taken 12/07/2024920 by Rupa Pierce, RN) Stabilization Measures: legs elevated Medication Review/Management: medications reviewed Problem: Pain Acute Goal: Optimal Pain Control and Function Outcome: Ongoing, Progressing Intervention: Optimize Psychosocial Wellbeing Flowsheets (Taken 12/07/2024920 by Rupa Pierce, RN) Supportive Measures: active listening utilized decision-making supported self-care encouraged relaxation techniques promoted mindfulness techniques promoted self-reflection promoted Diversional Activities: television Spiritual Activities Assistance: affirmation provided Intervention: Develop Pain Management Plan Flowsheets (Taken 12/07/2024 1626 by Rupa Pierce, RN) Pain Management Interventions: medication (see MAR) Intervention: Prevent or Manage Pain Flowsheets Taken 12/07/2024920 by Rupa Pierce, RN Sensory Stimulation Regulation: television on quiet environment promoted Medication Review/Management: medications reviewed Taken 12/06/2024 0050 by Erin Hardwick RN Bowel Elimination Promotion: adequate fluid intake promoted Sleep/Rest Enhancement: awakenings minimized regular sleep/rest pattern promoted room darkened noise level reduced consistent schedule promoted relaxation techniques promoted * Progress Notes - Rupa Minaya - 12/07/2024 12:20 PM EDT Pharmacokinetic Consult - Therapeutic Drug Monitoring HPI and Hospital Course: Teresa Rivera is a 64 y.o. female presenting with seizure Pharmacy consulted to assist with management of vancomycin therapy for possible meningitis. Random concentration therapeutic drug monitoring performed due to unstable renal function. Creatinine, Plasma (mg/dL) Date/Time Value 12/07/2024 035 1.74 (H) Estimated Creatinine Clearance: 43.6 mL/min (A) (by C-G formula based on SCr of 1.74 mg/dL (H)). Vancomycin, Random, Plasma (ug/mL) Date/Time Value 12/07/20241 19.8 Assessment/Plan 1. Patient is Appropriate for redosing at this time. Recommend to dose with vancomycin 1500 mg IV followed by intermittent dosing. 2. Monitor renal function (SCr and BUN) and UOP at least 2-3x weekly or more frequently if renal function changes. 3. Recommend random vancomycin level with AM labs on 12/08. Pharmacy will continue to follow, Rupa Minaya 12/07/2024 12:18 PM Cosigned by Bairon Hernandez, PharmD at 12/07/2024 2:24 PM EDT Associated attestation - Bairon Hernandez PharmD - 12/07/2024 2:24 PM EDT I have reviewed the note above and agree with the recommendations. Giorgio Hernandez, VeritoD, BCPS * Progress Notes - Lourdes Mckeon - 12/07/2024 10:37 AM EDT Case Management Adult Progress Note Teresa Rivera 64 y.o. female CSN: [id number] Admission: 11/29/2024 3:11 PM Primary Problem: Seizures (CMS/HCC) Anticipated Discharge Date: Unknown. Has Discharge Plans Changed? Disposition is home with support from family and resumption of HH. PT/OT recs are home with / assistance and PT/OT. Pt is current with [facility] . SW will send resumption of care orders at d/c. Medically Ready for Discharge: Anticipated in 2-4 Days Additional Comments Per medical team, ongoing symptom management. LP done yesterday. Not yet medically ready. SW will continue to follow. oLurdes Mckeon * Progress Notes - Bernice Eckert MD - 12/07/2024 9:47 AM EDT Subjective HR controlled. No palpitations. Denies dyspnea. Upset that dietary not getting orders correct. Current Scheduled Medications[1] Current Continuous Medications[2] Current PRN Medications[3] Review of Systems Objective Vitals Temp: [36.1 ??C (97 ??F)-37.4 ??C (99.3 ??F)] 36.8 ??C (98.2 ??F) Heart Rate: [71-84] 71 Resp: [16-23] 16 BP: (95-149)/(45-78) 149/70 Physical Exam Constitutional: General: She is not in acute distress. Appearance: She is obese. HENT: Head: Normocephalic. Eyes: Conjunctiva/sclera: Conjunctivae normal. Pulmonary: Effort: Pulmonary effort is normal. No respiratory distress. Abdominal: General: Abdomen is flat. Palpations: Abdomen is soft. Musculoskeletal: Right lower leg: No edema. Left lower leg: No edema. Skin: General: Skin is dry. Neurological: Mental Status: She is alert and oriented to person, place, and time. Labs in last 18 hours CBC WBC 5.92 Hb 7.5 (L) Plt 264 Hct 24.3 (L) ANC 4.44 INR ??, PTT ??, Anti-Xa ?? BMP Na 142 Cl 103 BUN 10 Glu 138 (H) K 3.7 Co2 26 Cr 1.74 (H) Ca 8.7 (L) iCa ?? Mg 1.8 (L), Phos ?? Lactate ?? LFT AST ?? AlkPhos ?? T Prot ?? ALK ?? Bili ?? Alb ?? D.Bili ?? 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 1.Seizure occurred - Likely new symptom (maybe had seizure 1 week CHEF DE CUISINE, witnessed seizure 11/29). Apparently Keppra had been stopped postoperatively prior to this event. - Possible etiology: prior surgery, infection, medications, previous TBI, and recent SAH/SDH - CT head: no acute/new findings, similar appearance of small amount of subdural blood - No seizures noted on EEG - Discussed MRI brain findings with Neurosurgery 12/02; recommend continuing Keppra at renal dosing.Again discussed possible meningitis with Neurosurgery (LGF, after seizure). Images reviewed and they do not think source of her infection is meningitis (per resident Monique Dahl, discussed with Dr. Bangura). - In light of LGF with new seizure, had LP in IR. Choe partially pending so far but 15 nucleated cells. Cultures neg. Cryptococc ag negative. 2.Fever, low grade and unclear significance External Otitis Headache - No photophobia on exam - CXR negative for infiltrate - No urinary symptoms and admission UA negative for infection. - Started empiric ceftriaxone and vancomycin (limited by JORGE) and added ampicillin today. Broadenedceftriaxone to cefepime because pseudomonas noted from sputum culture. This pseudomonas is likely colonization because she does not have respiratory symptoms so would have low threshold to narrow once CSF cultures are back. - Started Cortisporin gtt QID right ear 12/01, stopped today per patient request. 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 Discussed with Neurosurgery 12/01. They have evaluated and there are no surgical recommendations. Will continue with plans for continuing OPchemotherapy pending other medical issues. - Discussed with Med Onc on rounds today. Chronic Conditions or Resolved issues: Diplopia, resolved - No changes on MRI brain to explain this symptom. Atrial flutter/fibrillation, uncontrolled with RVR - Followed by cardiology for atrial flutter/fibrillation; history of ablation - Noted to be mostly in NSR on tele; intermittent, short episodes of AF with RVR, asymptomatic. History of bradycardia and hypotension with higher doses of metoprolol. Home dose 50mg BID but here titrating up and was at 25mg TID. OK to give extra dose if needed. Monitoring lytes and trying to keep K/Mg at 4/2 respectively. - Home meds: lasix, spiralactone, htcz-triamterene, metoprolol, losartan. Per sister, not taking most of these. . Will add back GDMT as BP allows. - Have been holding anticoagulation due to recent SAH/SDH on 11/15. The initial plan was to hold for 2 weeks so she is in the window to restart. Discussed with her, planning to start therapeutic Lovenox (but holding dose due to plans for LP). HYPOKALEMIA- replaced. Recheck in am HYPOMAGNESEMIA- replaced. Recheck in am Type II DM, controlled - Last A1c, 08/2024: 6.3% - home regimen: metformin, Januvia - Hospital regimen: Insulin sliding scale Anemia, chronic disease - monitor, transfuse for hgb < 7.0 HTN - meds as above HLD - atorvastatin COPD on 2L NC- no signs of exacerbation, home meds: Breztri, cetirizine, montelukast, continue + duo nebs prn GERD - protonix, tums Chronic hypomagnesemia - Mag oxide Anxiety/Depression - hydroxyzine, fluoxetine Neuropathy/Chronic Pain -gabapentin, dose reduced for JORGE Chemo induced Nausea and Vomiting - Zofran and Compazine IVF: Saline lock. Hypokalemia - replaced orally. Hypomagnesemia - replaced IV and orally. Diet: Adult diet Diet texture: Regular; Carbohydrate restriction: Consistent Carb 2 (80 gm max/meal); Sodium restriction: 2,000 mg Na Last bowel movement: 12/05/24 Lines/Tubes: PIV Venous thromboembolism prophylaxis: SCDs only Code status: Full Code Discharge planning Anticipate home. Spouse 2 months ago so now lives alone. She is planning to stay with her sister short term. Sister confirms. Sister at bedside. Room Server also [facility]. [facility] Ready for [facility]: Revision History Medically Ready for Discharge: [1] ampicillin, 2 g, Intravenous, q6h calcium-vitamin D, 1 tablet, Oral, Daily cefepime, 2 g, Intravenous, q12h cetirizine, 5 mg, Oral, Daily cyanocobalamin, 1,000 mcg, Oral, Daily [Held by provider] enoxaparin, 1 mg/kg, Subcutaneous, q24h ferrous sulfate, 324 mg, Oral, Daily with breakfast FLUoxetine, 40 mg, Oral, Daily furosemide, 40 mg, Oral, Daily gabapentin, 100 mg, Oral, 4x daily insulin lispro, 0-5 Units, Subcutaneous, TID with meals insulin lispro, 0-3 Units, Subcutaneous, Twice at night levETIRAcetam, 750 mg, Oral, BID magnesium oxide, 400 mg, Oral, BID melatonin, 6 mg, Oral, Nightly metoprolol tartrate, 25 mg, Oral, TID Tiotropium [place] Monohydrate, 2 puff, Inhalation, Daily And mometasone-formoterol, 2 puff, Inhalation, BID montelukast, 10 mg, Oral, Nightly nystatin, , Topical, BID pantoprazole, 40 mg, Oral, Daily sodium chloride, 10 mL, Intravenous, q12h vancomycin (Vancocin) intermittent dosing, 1 each, Intravenous, See admin instructions vancomycin, 1,500 mg, Intravenous, Once [2] [3] PRN medications: acetaminophen, calcium carbonate, glucose OR dextrose 10 % OR [id number] % OR glucagon (human recombinant), hydrOXYzine HCl, ipratropium-albuterol, Alum & Mag hydroxide, Zinc Oxide, Cholestyramine, magic mouthwash BLM, ondansetron ODT OR ondansetron OR ondansetron, polyethylene glycol, prochlorperazine, Insert peripheral IV AND Saline lock IV AND sodium chloride AND sodium chloride * Care Plan - Rupa Pierce RN - 12/07/2024 9:24 AM EDT Problem: Adult Inpatient Plan of Care Goal: Plan of Care Review Outcome: Ongoing, Progressing Flowsheets (Taken 12/07/2024 0921) Progress: improving Outcome Evaluation: Plan of care reviewed with patient. Verbalized understading. Plan of Care Reviewed With: patient Goal: Patient-Specific Goal (Individualized) Outcome: Ongoing, Progressing Flowsheets (Taken 12/07/2024 0800) Patient/Family-Specific Goals (Include Timeframe): Will be free of falls throughout shift Individualized Care Needs: Safety Anxieties, Fears or Concerns: none stated Goal: Absence of Hospital-Acquired Illness or Injury Outcome: Ongoing, Progressing Intervention: Identify and Manage Fall Risk Flowsheets (Taken 12/07/2024920) Safety Promotion/Fall Prevention: activity supervised clutter-free environment maintained room organization consistent fall prevention program maintained Goal: Optimal Comfort and Wellbeing Outcome: Ongoing, Progressing Intervention: Provide Person-Centered Care Flowsheets (Taken 12/07/2024920) Trust Relationship/Rapport: care explained choices provided emotional support provided empathic listening provided questions answered Goal: Readiness for Transition of Care Outcome: Ongoing, Progressing Intervention: Mutually Develop Transition Plan Flowsheets Taken 12/07/2024 0004 by Erin Hardwick RN Anticipated Changes Related to Illness: inability to care for self Transportation Concerns: none Readmission Within the Last 30 Days: previous discharge plan unsuccessful Offered/Gave Vendor List: other (see comments) Taken 12/06/2024 0050 by Erin Hardwick RN Equipment Currently Used at Home: walker, rollator commode chair Transportation Anticipated: family or friend will provide Current Discharge Risk: chronically ill Concerns to be Addressed: adjustment to diagnosis/illness coping/stress Patient/Family Anticipated Services at Transition: ed case manager outpatient care Patient's Choice of Community Agency(s): per case management Patient/Family Anticipates Transition to: home with family Taken 12/05/2024 0147 by Erma Cary, RN Current Outpatient/Agency/Support Group: homecare agency Taken 12/03/2024 1945 by Pepper Madden Discharge Coordination/Progress: per case management Problem: Fluid Volume Excess Goal: Fluid Balance Outcome: Ongoing, Progressing Intervention: Monitor and Manage Hypervolemia Flowsheets (Taken 12/07/2024920) Fluid/Electrolyte Management: fluids adjusted Skin Protection: protective footwear used Problem: Fall Injury Risk Goal: Absence of Fall and Fall-Related Injury Outcome: Ongoing, Progressing Intervention: Identify and Manage Contributors Flowsheets (Taken 12/07/2024920) Medication Review/Management: medications reviewed Self-Care Promotion: independence encouraged BADL personal objects within reach meal set-up provided Problem: Skin Injury Risk Increased Goal: Skin Health and Integrity Outcome: Ongoing, Progressing Intervention: Optimize Skin Protection Flowsheets (Taken 12/07/2024920) Activity Management: activity adjusted per tolerance activity encouraged Pressure Reduction Techniques: heels elevated off bed Skin Protection: protective footwear used Head of Bed (HOB) Positioning: HOB elevated Problem: Infection Goal: Absence of Infection Signs and Symptoms Outcome: Ongoing, Progressing Intervention: Prevent or Manage Infection Flowsheets (Taken 12/07/2024920) Infection Management: aseptic technique maintained Fever Reduction/Comfort Measures: lightweight bedding lightweight clothing Isolation Precautions: precautions maintained contact Problem: Diabetes Goal: Blood Glucose Level Within Target Range Outcome: Ongoing, Progressing Intervention: Optimize Glycemic Control Flowsheets (Taken 12/07/2024920) Hyperglycemia Management: blood glucose monitored Goal: Minimize Hypoglycemia Risk Outcome: Ongoing, Progressing Intervention: Minimize and Manage Hypoglycemia Flowsheets (Taken 12/07/2024920) Hypoglycemia Management: blood glucose monitored Problem: Seizure, Active Management Goal: Absence of Seizure/Seizure-Related Injury Outcome: Ongoing, Progressing Intervention: Prevent Seizure-Related Injury Flowsheets (Taken 12/07/2024920) Sensory Stimulation Regulation: television on quiet environment promoted Aspiration Prevention During Seizure: (no seizure activity) other (see comments) Seizure Precautions: clutter-free environment maintained activity supervised Problem: Acute Kidney Injury/Impairment Goal: Effective Renal Function Outcome: Ongoing, Progressing Intervention: Monitor and Support Renal Function Flowsheets (Taken 12/07/2024920) Stabilization Measures: legs elevated Medication Review/Management: medications reviewed Problem: Pain Acute Goal: Optimal Pain Control and Function Outcome: Ongoing, Progressing Intervention: Optimize Psychosocial Wellbeing Flowsheets (Taken 12/07/2024920) Supportive Measures: active listening utilized decision-making supported self-care encouraged relaxation techniques promoted mindfulness techniques promoted self-reflection promoted Diversional Activities: television Spiritual Activities Assistance: affirmation provided * Consults - Marcelo Kelly - 12/07/2024 5:40 AM EDT VAT consulted for PIV placement. PIV access has been obtained. VAT will complete consult. * Care Plan - Erin Hardwick RN - 12/07/2024 12:15 AM EDT Problem: Adult Inpatient Plan of Care Goal: Plan of Care Review Outcome: Ongoing, Progressing Flowsheets (Taken 12/07/20243) Progress: improving Outcome Evaluation: Plan of care ongoing and reviewed with patient and family Both verbalized understanding Plan of Care Reviewed With: patient family Goal: Patient-Specific Goal (Individualized) Outcome: Ongoing, Progressing Flowsheets (Taken 12/06/20241999) Patient/Family-Specific Goals (Include Timeframe): pt will be free of falls/injury this 7p shift from 12-06-24 to 12-07-24 Individualized Care Needs: safety Anxieties, Fears or Concerns: denies Goal: Absence of Hospital-Acquired Illness or Injury Outcome: Ongoing, Progressing Intervention: Identify and Manage Fall Risk Flowsheets (Taken 12/06/20241999) Safety Promotion/Fall Prevention: activity supervised assistive device/personal items within reach clutter-free environment maintained fall prevention program maintained lighting adjusted mobility aid in reach nonskid shoes/slippers when out of bed room organization consistent safety round/check completed toileting scheduled Intervention: Prevent Skin Injury Flowsheets (Taken 12/06/20241999) Body Position: weight shifting Skin Protection: incontinence pads utilized transparent dressing maintained pulse oximeter probe site changed protective footwear used Intervention: Prevent and Manage VTE (Venous Thromboembolism) Risk Flowsheets (Taken 12/07/20243) VTE Prevention/Management: (pt ambulating) -- Intervention: Prevent Infection Flowsheets (Taken 12/06/2024 0050) Infection Prevention: hand hygiene promoted single patient room provided equipment surfaces disinfected rest/sleep promoted environmental surveillance performed Goal: Optimal Comfort and Wellbeing Outcome: Ongoing, Progressing Intervention: Monitor Pain and Promote Comfort Flowsheets (Taken 12/07/20243) Pain Management Interventions: pain management plan reviewed with patient/caregiver quiet environment facilitated position adjusted pillow support provided care clustered emotional support rest therapeutic presence medication (see MAR) Intervention: Provide Person-Centered Care Flowsheets (Taken 12/07/20243) Trust Relationship/Rapport: choices provided emotional support provided empathic listening provided questions answered thoughts/feelings acknowledged reassurance provided questions encouraged care explained Goal: Readiness for Transition of Care Outcome: Ongoing, Progressing Intervention: Mutually Develop Transition Plan Flowsheets Taken 12/07/20243 Anticipated Changes Related to Illness: inability to care for self Transportation Concerns: none Readmission Within the Last 30 Days: previous discharge plan unsuccessful Offered/Gave Vendor List: other (see comments) Taken 12/06/202449 Equipment Currently Used at Home: walker, rollator commode chair Transportation Anticipated: family or friend will provide Current Discharge Risk: chronically ill Concerns to be Addressed: adjustment to diagnosis/illness coping/stress Patient/Family Anticipated Services at Transition: ed case manager outpatient care Patient's Choice of Community Agency(s): per case management Patient/Family Anticipates Transition to: home with family Problem: Fluid Volume Excess Goal: Fluid Balance Outcome: Ongoing, Progressing Intervention: Monitor and Manage Hypervolemia Flowsheets Taken 12/07/20243 Fluid/Electrolyte Management: fluids provided Taken 12/06/20241999 Skin Protection: incontinence pads utilized transparent dressing maintained pulse oximeter probe site changed protective footwear used Problem: Fall Injury Risk Goal: Absence of Fall and Fall-Related Injury Outcome: Ongoing, Progressing Intervention: Identify and Manage Contributors Flowsheets (Taken 12/07/20243) Medication Review/Management: medications reviewed pharmacy consulted Self-Care Promotion: independence encouraged BADL personal objects within reach BADL personal routines maintained Intervention: Promote Injury-Free Environment Flowsheets (Taken 12/06/20241999) Safety Promotion/Fall Prevention: activity supervised assistive device/personal items within reach clutter-free environment maintained fall prevention program maintained lighting adjusted mobility aid in reach nonskid shoes/slippers when out of bed room organization consistent safety round/check completed toileting scheduled Problem: Skin Injury Risk Increased Goal: Skin Health and Integrity Outcome: Ongoing, Progressing Intervention: Optimize Skin Protection Flowsheets Taken 12/07/20243 Pressure Reduction Techniques: frequent weight shift encouraged weight shift assistance provided heels elevated off bed rest period provided between sit times Pressure Reduction Devices: positioning supports utilized Taken 12/06/20241999 Activity Management: activity adjusted per tolerance Skin Protection: incontinence pads utilized transparent dressing maintained pulse oximeter probe site changed protective footwear used Head of Bed (HOB) Positioning: HOB elevated Intervention: Promote and Optimize Oral Intake Flowsheets (Taken 12/06/202449) Oral Nutrition Promotion: calorie-dense foods provided Nutrition Interventions: food preferences provided Problem: Infection Goal: Absence of Infection Signs and Symptoms Outcome: Ongoing, Progressing Intervention: Prevent or Manage Infection Flowsheets Taken 12/07/20243 Fever Reduction/Comfort Measures: lightweight bedding lightweight clothing Taken 12/06/20241999 Isolation Precautions: contact precautions maintained Taken 12/06/202449 Infection Management: aseptic technique maintained Problem: Diabetes Goal: Blood Glucose Level Within Target Range Outcome: Ongoing, Progressing Intervention: Optimize Glycemic Control Flowsheets (Taken 12/07/20243) Hyperglycemia Management: blood glucose monitored Goal: Minimize Hypoglycemia Risk Outcome: Ongoing, Progressing Intervention: Minimize and Manage Hypoglycemia Flowsheets (Taken 12/07/20243) Hypoglycemia Management: blood glucose monitored Problem: Seizure, Active Management Goal: Absence of Seizure/Seizure-Related Injury Outcome: Ongoing, Progressing Intervention: Prevent Seizure-Related Injury Flowsheets (Taken 12/07/20243) Sensory Stimulation Regulation: care clustered quiet environment promoted Aspiration Prevention During Seizure: (no seizure activity) other (see comments) Seizure Precautions: activity supervised clutter-free environment maintained side rails padded Problem: Acute Kidney Injury/Impairment Goal: Effective Renal Function Outcome: Ongoing, Progressing Intervention: Monitor and Support Renal Function Flowsheets (Taken 12/07/20243) Stabilization Measures: legs elevated Medication Review/Management: medications reviewed pharmacy consulted Problem: Pain Acute Goal: Optimal Pain Control and Function Outcome: Ongoing, Progressing Intervention: Optimize Psychosocial Wellbeing Flowsheets (Taken 12/07/20243) Supportive Measures: active listening utilized positive reinforcement provided self-care encouraged verbalization of feelings encouraged relaxation techniques promoted decision-making supported Diversional Activities: television Spiritual Activities Assistance: affirmation provided Intervention: Develop Pain Management Plan Flowsheets (Taken 12/07/20243) Pain Management Interventions: pain management plan reviewed with patient/caregiver quiet environment facilitated position adjusted pillow support provided care clustered emotional support rest therapeutic presence medication (see MAR) Intervention: Prevent or Manage Pain Flowsheets Taken 12/07/20243 Sensory Stimulation Regulation: care clustered quiet environment promoted Medication Review/Management: medications reviewed pharmacy consulted Taken 12/06/202449 Bowel Elimination Promotion: adequate fluid intake promoted Sleep/Rest Enhancement: awakenings minimized regular sleep/rest pattern promoted room darkened noise level reduced consistent schedule promoted relaxation techniques promoted * Post-Procedure Note - Lisa Romano PA - 12/06/2024 4:31 PM EDT Vascular and Interventional Radiology Brief Postprocedure Note Attending: Rosalina Speech Therapy Assistant: Scottie Pre-operative Diagnosis: seizure, concern for possible meningitis Post-operative Diagnosis: same Type of Anesthesia: Local Description of Findings: CSF is light yellow; non-cloudy OP 19 CP 14 Technical/Surgical Procedures Used: Image-guided L3-4 LUMBAR PUNCTURE 15 ml CSF removed Specimen Obtained: Yes, csf Complications: None Estimated Blood Loss: none Procedure Events Event Event Time See detailed result report with images in PACS. The patient tolerated the procedure well without incident or complication and is in stable condition. * Progress Notes - Bairon Hernandez PharmD - 12/06/2024 3:45 PM EDT Pharmacokinetic Consult - Therapeutic Drug Monitoring HPI and Hospital Course: Teresa Rivera is a 64 y.o. female presenting with seizure from clinic Pharmacy consulted to assist with management of vancomycin therapy for possible meningitis. Random concentration therapeutic drug monitoring performed due to unstable renal function. Creatinine, Plasma (mg/dL) Date/Time Value 12/06/2024 0334 1.90 (H) Estimated Creatinine Clearance: 40 mL/min (A) (by C-G formula based on SCr of 1.9 mg/dL (H)). Vancomycin, Random, Plasma (ug/mL) Date/Time Value 12/06/2024 0334 32.4 Assessment/Plan 1. Patient is Not appropriate for redosing at this time. Recommend to hold dose at this time and assess further vancomycin clearance prior to redose. 2. Monitor renal function (SCr and BUN) and UOP at least 2-3x weekly or more frequently if renal function changes. 3. Recommend random vancomycin level with AM labs on 12/07. Pharmacy will continue to follow, Bairon Hernandez PharmD 12/06/2024 3:44 PM * Consults - Lisa Romano PA - 12/06/2024 2:23 PM EDTAssociated Order(s): Inpatient Consult to Spine Neuro Interventional Radiology Inpatient Consult to Spine Neuro Interventional Radiology Consult performed by: Lisa Romano PA Consult ordered by: Noemí Leigh MD Reason For Consult Seizure Requesting Service: General Medicine Requested Date/Time: 12/04/24 History Of Present Illness Teresa Rivera is a 64 y.o. 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 She hasheadache, low grade fever and otitis externa. She is obese with BMI of 41. MICHAEL was consulted for animage-guided LUMBAR PUNCTURE to exclude meningitis. Takes xarelto at home, which has been held. Medical/Surgical/Social/Family History Past Medical History[1] Surgical History[2] Social History[3] Family History[4] Allergies Cephalexin, Lisinopril, and Meloxicam Medications Current Medications[5] Review of Systems Review of Systems HENT: Positive for ear pain. Negative for ear discharge. Eyes: Negative for visual disturbance. Respiratory: Negative for shortness of breath. Wears supplemental oxygen Neurological: Positive for headaches. Physical Exam Physical Exam Constitutional: General: She is not in acute distress. Appearance: She is obese. She is ill-appearing. HENT: Head: Comments: Healing incision on top of head Cardiovascular: Rate and Rhythm: Normal rate and regular rhythm. Pulmonary: Effort: Pulmonary effort is normal. No respiratory distress. Comments: Wearing supplemental oxygen via NC, Audible congestion Skin: General: Skin is dry. Neurological: Mental Status: She is alert and oriented to person, place, and time. Psychiatric: Mood and Affect: Mood normal. Behavior: Behavior normal. Last Recorded Vitals Blood pressure 95/56, pulse 96, temperature 36.6 ??C (97.9 ??F), temperature source Oral, resp. rate 23, height 1.702 m (5' 7 ), weight 119 kg (263 lb 0.1 oz), SpO2 95%. Results Review {Vanishing Link Review Results :[id number] I have reviewed the latest lab and imaging results. Lab Results Component Value Date WBC 7.07 12/06/2024 HGB 7.6 (L) 12/06/2024 HCT 24.4 (L) 12/06/2024 MCV 95 12/06/2024 PLT 249 12/06/2024 Lab Results Component Value Date INR 1.2 (H) 11/30/2024 INR 1.7 (H) 11/15/2024 INR 1.2 (H) 10/14/2024 === 11/29/24 === MR HEAD W AND WO IV CONTRAST - Narrative - CLINICAL INDICATION: Neuro deficit, persistent/recurrent, [employer] neoplasm suspected TECHNIQUE: Multiplanar multiecho sequences were performed through the brain utilizing T1 and T2 weighting, as well as either axial susceptibility weighted or gradient echo sequences, and axial diffusion weighted images. A coronal post-contrast 1mm thick T1-weighted 3D MP RAGE sequence was performed and multiplanar reformatted images were created. Imaging was performed with and without contrast administration: 12.1 mL of Gadavist. COMPARISON: Brain MRI 10/13/2024 FINDINGS: Diagnostic Quality: Mild motion degradation of postcontrast MPRAGE. 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 Thin fluid collection subjacent to the craniotomy site. Unchanged abundant irregular dural thickening and enhancement subjacent to the craniotomy site and overlying the left frontal convexity. There is persistent hemorrhage in the left perirolandicregion demonstrating susceptibility and intrinsic T1 hyperintensity. There is a residual thin cleftof enhancing tissue along the left aspect of the falx measuring 0.5 cm (S14:21). No midline shift, mass effect, new parenchymal hemorrhage, or evidence of acute infarct. There are nonspecific punctate and patchy T2/FLAIR hyperintensities in the periventricular and subcortical white matter which may represent sequela of small vessel disease. No extra-axial fluid collections. Basal cisterns are patent. No hydrocephalus. There is mild prominence of the sulci, cisterns, and ventricles suggestive of generalized brain parenchymal volume loss without a regional predominance. The callosal angle is obtuse. Vascular Flow Voids: The V4 segment of the left vertebral artery is diminutive and not well visualized. Remaining flow voids are intact. Paranasal Sinuses and Mastoid Air Cells: Left septal deviation. Mild mucosal thickening of the maxillary sinuses. Moderate mucosal thickening of the left sphenoid sinus. Mild mucosal thickening of the right sphenoid sinus. Mild mucosal thickening of the ethmoid air cells. Scattered T2 hyperintensities of the mastoid air cells. Orbits: No definite masses within the limitations of the study. Extracranial Findings: None. Craniocervical Junction and Skull Base: No tonsillar ectopia or mass is present. - Impression - Restaging of small cell lung cancer. 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 Again noted is a small amount of intraparenchymal hemorrhage in the perirolandic region along the resection margin. * Unchanged abundant dural thickening and enhancement subjacent to the craniotomy site which could reflect a combination of posttreatment changes and reactive changes. A superimposed infectious process could be considered in the appropriate clinical setting. * Residual cleft of enhancing tissue along the left falx which may reflect residual or recurrent tumor. * There is no evidence of new or enlarging intracranial hemorrhage or acute infarction. CRITICAL RESULT: No. COMMUNICATION: Per this written report. 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CMS/HCC) Anemia Anxiety COPD (chronic obstructive pulmonary disease) (CMS/HCC) Diabetes mellitus (CMS/HCC) Essential hypertension Mixed hyperlipidemia Hypomagnesemia Neuropathy A-fib (CMS/HCC) Heart failure JORGE (acute kidney injury) (CMS/HCC) Procedure and risks were discussed Consent obtained Proceed with image-guided LUMBAR PUNCTURE [1] Past Medical History: Diagnosis Date A-fib (CMS/HCC) Anxiety Brain tumor (CMS/HCC) Chemotherapy-induced nausea and vomiting 08/28/2023 COPD (chronic obstructive pulmonary disease) (CMS/HCC) Depression Heart failure Hyperlipidemia Hypertension Osteoarthritis Pneumonia Small cell lung cancer (CMS/HCC) Type 2 diabetes mellitus [2] Past Surgical History: Procedure Laterality Date BRAIN SURGERY TUBAL LIGATION N/A Tubal Ligation from [facility] TYMPANOSTOMY TUBE PLACEMENT N/A Ear Surgery Eustachian Tube from [facility] [3] Social History Tobacco Use Smoking status: Former Current packs/day: 0.00 Average packs/day: 1.5 packs/day for 48.4 years (72.6 ttl pk-yrs) Types: Cigarettes Start date: 1975 Quit date: 10/17/2023 Years since quittin.1 Passive exposure: Past Smokeless tobacco: Never Vaping Use Vaping status: Never Used Substance Use Topics Alcohol use: Never Drug use: Never [4] Family History Problem Relation Name Age of Onset No Known Problems Mother No Known Problems Father Diabetes Other Fibromyalgia Other [5] Current Facility-Administered Medications Medication Dose Route Frequency Provider Last Rate Last Admin acetaminophen (Tylenol) tablet 650 mg 650 mg Oral q6h PRN Jay Nicolas APRN, DNP 650 mg at 12/04/24 2143 ampicillin (Omnipen) 2 g in sodium chloride 0.9% 100 mL IVPB (vial adapter required) 2 g Intravenous q6h Noemí Leigh MD 220 mL/hr at 12/06/24 1139 2 g at 12/06/24 1139 calcium carbonate (Tums) chewable tablet 500 mg 500 mg Oral 4x daily PRN Jay Nicolas APRN, DNP 500 mg at 12/05/24 1829 calcium-vitamin D 500-200 MG-UNIT per tablet 1 tablet 1 tablet Oral Daily Jay Nicolas APRN, DNP1 tablet at 12/06/24 0809 cefepime (Maxipime) 2 g in sodium chloride 0.9% 100 mL IVPB (vial adapter required) 2 g [id number] Noemí Leigh MD 36.7 mL/hr at 12/06/24 0328 2 g at 12/06/24 0328 cetirizine (ZyrTEC) tablet 5 mg 5 mg Oral Daily Jay Nicolas APRN, DNP 5 mg at 12/06/24 0809 cyanocobalamin (Vitamin B-12) tablet 1,000 mcg 1,000 mcg Oral Daily Jay Nicolas APRN, DNP 1,000mcg at 12/06/24 0810 glucose (Glutose) 40 % oral gel 15-30 grams of glucose 15-30 grams of glucose Sublingual q15 min PRN Jay Nicolas APRN, DNP Or dextrose 10 % (D10W) bolus 125 mL 125 mL Intravenous q15 min PRN Jay Nicolas APRN, DNP Or dextrose 10 % (D10W) bolus 250 mL 250 mL Intravenous q15 min PRN Jay Nicolas APRN, DNP Or glucagon (human recombinant) injection 1 mg 1 mg Intramuscular q15 min PRN Jay Nicolas APRN, DNP [Held by provider] enoxaparin (Lovenox) syringe 120 mg 1 mg/kg Subcutaneous q24h Noemí Leigh MD ferrous sulfate EC tablet 324 mg 324 mg Oral Daily with breakfast Jay Nicolas APRN, DNP 324 mg at 12/06/24 0809 FLUoxetine (PROzac) capsule 40 mg 40 mg Oral Daily Jay Nicolas APRN, DNP 40 mg at 12/06/24 0810 furosemide (Lasix) tablet 40 mg 40 mg Oral Daily Noemí Leigh MD 40 mg at 12/06/24 0809 gabapentin (Neurontin) capsule 100 mg 100 mg Oral 4x daily Noemí Leigh MD 100 mg at 12/06/24 1322 hydrOXYzine HCl (Atarax) tablet 25 mg 25 mg Oral TID PRN Jay Nicolas APRN, DNP insulin lispro (Admelog) 100 units/mL injection - Correction - Standard Dose 0-5 Units SubcutaneousTID with meals aJy Nicolas APRN, DNP 1 Units at 12/06/24 1254 insulin lispro (Admelog) injection - Correction - Nighttime Dose 0-3 Units Subcutaneous Twice at night Jay Nicolas APRN, DNP ipratropium-albuterol (Duo-Neb) 0.5-2.5 mg/3 mL nebulizer solution 3 mL 3 mL Nebulization q4h PRN Jay Nicolas APRN, DNP levETIRAcetam (Keppra) tablet 750 mg 750 mg Oral BID Noemí Leigh MD 750 mg at 12/06/24 0809 magic butt balm (Cholestyramine) ointment 1 Application Topical q1h PRN Jay Nicolas APRN, DNP magic mouthwash BLM (FIRST-Mouthwash) suspension 15 mL 15 mL Swish & Spit 4x daily PRN Jay Nicolas APRN, DNP magnesium oxide (Mag-Ox) tablet 400 mg 400 mg Oral BID Jay Nioclas APRN, DNP 400 mg at melatonin tablet 6 mg 6 mg Oral Nightly Jay Nicolas APRN, DNP 6 mg at 12/05/242027 metoprolol tartrate (Lopressor) split tablet 37.5 mg 37.5 mg Oral TID Bernice Eckert MD Tiotropium [place] Monohydrate (Spiriva Respimat) 2.5 MCG/ACT inhaler 2 puff 2 puff Inhalation Daily Jay Nicolas APRN, DNP 2 puff at 12/06/24 0951 And mometasone-formoterol (Dulera 200) 200-5 MCG/ACT inhaler 2 puff 2 puff Inhalation BID Jay Nicolas APRN, DNP 2 puff at 12/06/24 08 montelukast (Singulair) tablet 10 mg 10 mg Oral Nightly Jay Nicolas APRN, DNP 10 mg at nystatin (Mycostatin) 117369 UNIT/GM powder Topical BID Jay Nicolas APRN, DNP Given at ondansetron ODT (Zofran-ODT) disintegrating tablet 4 mg 4 mg Oral q6h PRN Bernice Eckert MD Or ondansetron (Zofran) injection 4 mg 4 mg Intravenous q6h PRN Bernice Eckert MD 4 mg at 12/06/24 0941 Or ondansetron (Zofran) 4 MG/5ML solution 4 mg 4 mg Oral q6h PRN Bernice Eckert MD pantoprazole (Protonix) EC tablet 40 mg 40 mg Oral Daily Jay Nicolas APRN, DNP 40 mg at 12/06/24 0809 polyethylene glycol (Miralax) packet 17 g 17 g Oral BID PRN Jay Nicolas APRN, DNP potassium chloride (Klor-Con) packet 40 mEq 40 mEq Oral Once Bernice Eckert MD prochlorperazine (Compazine) tablet 10 mg 10 mg Oral q6h PRN Jay Nicolas APRN, DNP 10 mg at 12/06/24 0445 sodium chloride 0.9 % flush 10 mL 10 mL Intravenous q12h Jay Nicolas APRN, DNP 10 mL at 12/05/24 2030 And sodium chloride 0.9 % flush 10 mL 10 mL Intravenous PRN Jay Nicolas APRN, DNP vancomycin (Vancocin) intermittent dosing 1 each 1 each Intravenous See admin instructions Noemí Leigh MD * Progress Notes - Robbie Rosas APRN - 12/06/2024 12:00 PM EDT Medical Oncology Consult Follow-Up Note 12/06/24 Patient Care Team: Laurie Gutierrez MD as PCP - Joshua Gerber MD as Consulting Physician (Radiation Oncology) Sabine Morales LPN as TCM Nurse Subjective: PT lying comfortably in bed with sister at bedside. Pt currently having soup for lunch. Ongoing weakness and fatigue. Good appetite and oral intake. Current;y PT in afib w/rvr. HR 130-140. PT reportshx of afib. Has received IV metoprolol in hope to convert or control rate, however still remains inAfib w/ rvr. PT currently asymptomatic. PT report hx of afib which has previously controlled with digoxin. LP scheduled for later today w/ neurosurgery Denies fever, chills, soa, chest pain, dizziness, lightheadedness, oral lesions, nvdc, edema, rash, and neuropathy. PMH, Surg History, Social History, Family History and current medications reviewed and unchanged from last encounter of 12/01, or updated as indicated. ROS: 14 point review of systems completed and negative unless stated above. Objective: Visit Vitals BP 123/61 (BP Location: Left arm, Patient Position: Lying) Pulse 80 Temp 37.4 ??C (99.3 ??F) (Oral) Resp 16 ECO General: Lying/resting comfortably in bed, fatigued and ill appearing; NAD HEENT: NCAT, PERRLA/EOMI, anicteric; no oral lesions Neck: Supple, no JVD Heart: Afib w/rvr, no MGR Lungs: Decreased bilat lobe; no rales, rhonchi or wheezes Abdomen: Soft, NTND, + BS Extremities: No edema Musculoskeletal: No focal tenderness or deformity Skin: No visible rashes or lesions Neuro: Generalized weakness otherwise grossly nonfocal; no localizing deficits of strength, sensation, or mentation Psychiatric: Normal mood and thought content Labs: Latest Reference Range & Units 12/06/24 03:34 WBC 3.70 - 10.30 10*3/uL 7.07 RBC 3.90 - 5.20 10*6/uL 2.57 (L) Hemoglobin 11.2 - 15.7 g/dL 7.6 (L) Hematocrit 34.0 - 45.0 % 24.4 (L) Platelet Count 155 - 369 10*3/uL 249 MCV 79 - 98 fL 95 MCH 26.0 - 32.0 pg 29.6 MCHC 30.7 - 35.5 g/dL 31.1 RDW 11.5 - 14.5 % 18.6 (H) MPV 8.8 - 12.5 fL 9.0 nRBC <=0.0 per 100 WBCs 0.0 Glucose 74 - 99 mg/dL 140 (H) Sodium 136 - 145 mmol/L 137 Potassium 3.6 - 4.9 mmol/L 3.0 (L) Chloride 97 - 107 mmol/L 99 CO2 22 - 29 mmol/L 26 Creatinine 0.60 - 1.10 mg/dL 1.90 (H) Anion Gap 6 - 16 mmol/L 12 BUN 8 - 23 mg/dL 10 BUN/Creatinine Ratio 5 EGFR mL/min/1.73m*2 29.2 Calcium 8.9 - 10.2 mg/dL 8.8 (L) Magnesium 1.9 - 2.4 mg/dL 1.7 (L) Vancomycin Rm ug/mL 32.4 (L): Data is abnormally low (H): Data is abnormally high Labs personally reviewed Imaging: MR Head w and wo IV Contrast Result Date: 12/02/2024 Restaging of small cell lung cancer. 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 Again noted is a small amount of intraparenchymal hemorrhage in the perirolandic region along the resection margin. * Unchanged abundant dural thickening and enhancement subjacent to the craniotomy site which could reflect a combination of posttreatment changes and reactive changes. A superimposed infectious process could be considered in the appropriate clinical setting. * Residual cleft of enhancing tissue along the left falx which may reflect residual or recurrent tumor. * There is no evidence of new or enlarging intracranial hemorrhage or acute infarction. CRITICAL RESULT: No. COMMUNICATION: Per this written report. Drafted by Brian Coats MD on 12/02/2024 2:16 AM Final report signed by MD Naun on 12/02/2024 2:34 AM Assessment/Plan: Teresa Rivera 64 y.o. 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 Medical oncology consulted for oncology plan of care. # ES-SCLC - Primary oncologist: Dr. 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 - 09/01/23 PET/CT: hypermetabolism of mediastinum, faint area RUL; MRI brain negative - 08/2023 - 10/2023: XRT + 4 cycles carbo/etop - 08/31/24: To ED for weakness/gait changes; CT head: 2.9 x 3.2 x 3.2 cm L paramedian superior frontal broad based extra-axial hyperdense hemorrhage with surrounding vasogenic edema - 09/02/24 MRI: enhancing extra-axial mass in L frontal vertex region with invasion of superior sagittal sinus and filling defect in sinus suggestive of bland tumor or thrombus, adjacent intraparenchymal hemorrhage and surrounding vasogenic edema in L frontal lobe - 09/05/24: S/p crani, path + metastatic carcinoma morphologically compatible with known small cell carcinoma - 10/24 - 11/07/24: 10 fx WBRT - 10/04/24: Began carbo + etop + atezo - 11/29: To ED from clinic for seizure # Seizure - ?Unwitnessed episode ~ 1-2 weeks ago - 11/29: Witnessed seizure in infusion clinic - CT head: similar appearance of small amount of subdural blood beneath L parietal craniotomy flap just left of vertex, similar appearance of adjacent L parafalcine subdural hematoma - Neurology consulted - EEG -no activity - Seizure precautions - Continue renally dosed keppra - Await MRI # New onset diplopia - Will proceed with MRI head today to evaluate underlying etiology # JORGE - Cr 1.9 improve from 2.64 - Baseline Cr 0.61 - 0.94 - 11/30: Renal US no hydronephrosis - Avoid nephrotoxic agents - Consider nephrology consult # Afib w/rvr - Hx of Afib - Currently asymptomatic; Vitals stable - IV Metoprolol - Continue telemetry # Gr 2 anemia - No s/s acute blood loss - Continue to monitor with CBC - Transfuse if hgb /< 7.0 Plan: - Continue to HOLD C3 carbo + etop due to acute seizure - Afib w/ rvr - attempt to convert/rate control - LP -Neurosurgery scheduled for later today -will follow results - Monitor for subsequent seizures and continue renally dosed keppra - Monitor kidney function/creatinine - FU Dr. Dunne + infusion slot C3D1 held 12/20 Medical oncology will continue to follow. Please call with additional questions or concerns. 35 minutes was spent on this encounter; including preparing to see the patient, which involved review/interpretation of diagnostics and reports; obtaining and/or reviewing separately obtained history; performing appropriate physical exam; ordering/scheduling medications, tests or procedures; communicating findings and counseling/educating the patient, family and/or caregiver; documentation in EMR; and care coordination. The selection, dosing and administration of anti-cancer agents and the management of associated toxicities requires complex medical decision making and intensive monitoring for toxicity. Modifications of drug dose and schedule as well as the initiation of supportive care interventions are often necessary because of expected toxicities. This varies individually based on patient tolerability, priortreatments and comorbidities/risk status. Monitoring typically entails labs, imaging and/or other diagnostics, utilizing a healthcare delivery team experienced in the use of anticancer agents and themanagement of associated toxicities in patients with cancer. Attending physician previously developed plan of care, which I discussed with the patient, whom I saw independently. The patient verbalized understanding and agrees with plan. All questions answered to their satisfaction. Encouraged to call should other questions/concerns arise. Robbie Rosas APRN Division of Medical Oncology [facility] * Progress Notes - Bernice Eckert MD - 12/06/2024 9:35 AM EDT Images from the original note were not included. Subjective No complaints at time of my visit. Denies pain or dyspnea. Sister notes she feels pt is fatigued. RN notes hr 130s to 160s today earlier and that Asked pt to rest, sister pulled pt out of bed and declined to stop when RN counseled her that this would likely be hard on her HR> During my visit again sister says she wants to get her up, asked PT her reasoning for wanting to get up and she notes warm water from shower helps break up secretions. Offered warm moist washcloth and this was beneficial. When I echoed RN concerns about ambulation iso RVR pt's sister noted she was going to take her out of the hospital. Sister frequently interrupting and will not let examiner nor pt finish a sentence. Ate some tomato soup. Review of Systems Current Scheduled Medications[1] Current Continuous Medications[2] Current PRN Medications[3] Objective Vitals Temp: [36.5 ??C (97.7 ??F)-37.3 ??C (99.1 ??F)] 36.8 ??C (98.3 ??F) Heart Rate: [79-150] 96 Resp: [21-23] 23 BP: (116-136)/(71-83) 136/83 Physical Exam Constitutional: General: She is not in acute distress. Appearance: She is obese. She is not toxic-appearing. HENT: Head: Comments: Healing incision Eyes: Conjunctiva/sclera: Conjunctivae normal. Cardiovascular: Rate and Rhythm: Tachycardia present. Rhythm irregular. Pulmonary: Effort: Pulmonary effort is normal. No respiratory distress. Skin: General: Skin is warm and dry. Neurological: Mental Status: She is alert and oriented to person, place, and time. Labs in last 18 hours CBC WBC 7.07 Hb 7.6 (L) Plt 249 Hct 24.4 (L) ANC ?? INR ??, PTT ??, Anti-Xa ?? BMP Na 137 Cl 99 BUN 10 Glu 140 (H) K 3.0 (L) Co2 26 Cr 1.90 (H) Ca 8.8 (L) iCa ?? Mg 1.7 (L), Phos ?? Lactate ?? LFT AST ?? AlkPhos ?? T Prot ?? ALK ?? Bili ?? Alb ?? D.Bili ?? 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 1.Seizure occurred - Likely new symptom (maybe had seizure 1 week CHEF DE CUISINE, witnessed seizure 11/29). Apparently Keppra had been stopped postoperatively prior to this event. - Possible etiology: prior surgery, infection, medications, previous TBI, and recent SAH/SDH - CT head: no acute/new findings, similar appearance of small amount of subdural blood - No seizures noted on EEG - Discussed MRI brain findings with Neurosurgery 12/02; recommend continuing Keppra at renal dosing.Again discussed possible meningitis with Neurosurgery (LGF, after seizure). Images reviewed and they do not think source of her infection is meningitis (per resident Monique Dahl, discussed with Dr. Bangura). - In light of LGF with new seizure, will pursue LP, scheduled for tomorrow with IR. 2.Fever, low grade and unclear significance External Otitis Headache - No photophobia on exam - CXR negative for infiltrate - No urinary symptoms and admission UA negative for infection. - Started empiric ceftriaxone and vancomycin (limited by JORGE) and added ampicillin today. Broadenedceftriaxone to cefepime because pseudomonas noted from sputum culture. This pseudomonas is likely colonization because she does not have respiratory symptoms so would have low threshold to narrow once CSF cultures are back. - Started Cortisporin gtt QID right ear 12/01, stopped today per patient request. 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 Discussed with Neurosurgery 12/01. They have evaluated and there are no surgical recommendations. Will continue with plans for continuing OPchemotherapy pending other medical issues. - Discussed with Med Onc on rounds today. Chronic Conditions or Resolved issues: Diplopia, resolved - No changes on MRI brain to explain this symptom. Atrial flutter/fibrillation, uncontrolled with RVR - Followed by cardiology for atrial flutter/fibrillation; history of ablation - Noted to be mostly in NSR on tele; intermittent, short episodes of AF with RVR, asymptomatic. History of bradycardia and hypotension with higher doses of metoprolol. Home dose 50mg BID but here titrating up and was at 25mg TID. Now increasing to 37.5q8h and OK to give extra dose if needed. Monitoring lytes and trying to keep K/Mg at 4/2 respectively. - Home meds: lasix, spiralactone, htcz-triamterene, metoprolol, losartan. Per sister, not taking most of these. Started Lasix due to wet cough. Will add back GDMT as BP allows. - Have been holding anticoagulation due to recent SAH/SDH on 11/15. The initial plan was to hold for 2 weeks so she is in the window to restart. Discussed with her, planning to start therapeutic Lovenox (but holding dose due to plans for LP). HYPOKALEMIA- replaced. Recheck in am HYPOMAGNESEMIA- replaced. Recheck in am Type II DM, controlled - Last A1c, 08/2024: 6.3% - home regimen: metformin, Januvia - Hospital regimen: Insulin sliding scale Anemia, chronic disease - monitor, transfuse for hgb < 7.0 HTN - meds as above HLD - atorvastatin COPD on 2L NC- no signs of exacerbation, home meds: Breztri, cetirizine, montelukast, continue + duo nebs prn GERD - protonix, tums Chronic hypomagnesemia - Mag oxide Anxiety/Depression - hydroxyzine, fluoxetine Neuropathy/Chronic Pain -gabapentin, dose reduced for JORGE Chemo induced Nausea and Vomiting - Zofran and Compazine IVF: Saline lock. Hypokalemia - replaced orally. Hypomagnesemia - replaced IV and orally. Diet: Adult diet Diet texture: Regular; Carbohydrate restriction: Consistent Carb 2 (80 gm max/meal); Sodium restriction: 2,000 mg Na Last bowel movement: 12/05/24 Lines/Tubes: PIV Venous thromboembolism prophylaxis: SCDs only Code status: Full Code Discharge planning Anticipate home. Spouse 2 months ago so now lives alone. She is planning to stay with her sister short term. Sister confirms. Sister at bedside. Room Server also [facility] Ready for Discharge: [1] ampicillin, 2 g, Intravenous, q6h calcium-vitamin D, 1 tablet, Oral, Daily cefepime, 2 g, Intravenous, q12h cetirizine, 5 mg, Oral, Daily cyanocobalamin, 1,000 mcg, Oral, Daily [Held by provider] enoxaparin, 1 mg/kg, Subcutaneous, q24h ferrous sulfate, 324 mg, Oral, Daily with breakfast FLUoxetine, 40 mg, Oral, Daily furosemide, 40 mg, Oral, Daily gabapentin, 100 mg, Oral, 4x daily insulin lispro, 0-5 Units, Subcutaneous, TID with meals insulin lispro, 0-3 Units, Subcutaneous, Twice at night levETIRAcetam, 750 mg, Oral, BID magnesium oxide, 400 mg, Oral, BID magnesium sulfate, 1 g, Intravenous, Once melatonin, 6 mg, Oral, Nightly metoprolol tartrate, 12.5 mg, Oral, Once metoprolol tartrate, 37.5 mg, Oral, TID Tiotropium [place] Monohydrate, 2 puff, Inhalation, Daily And mometasone-formoterol, 2 puff, Inhalation, BID montelukast, 10 mg, Oral, Nightly nystatin, , Topical, BID pantoprazole, 40 mg, Oral, Daily potassium chloride, 40 mEq, Oral, Once potassium chloride, 60 mEq, Oral, Once sodium chloride, 10 mL, Intravenous, q12h vancomycin (Vancocin) intermittent dosing, 1 each, Intravenous, See admin instructions [2] [3] PRN medications: acetaminophen, calcium carbonate, glucose OR dextrose 10 % OR ckyxolby14 % OR glucagon (human recombinant), hydrOXYzine HCl, ipratropium-albuterol, Alum & Mag hydroxide, Zinc Oxide, Cholestyramine, magic mouthwash BLM, ondansetron ODT OR ondansetron OR ondansetron, polyethylene glycol, prochlorperazine, Insert peripheral IV AND Saline lock IV AND sodium chloride AND sodium chloride * Progress Notes - Kasey Noriega - 12/06/2024 9:10 AM EDT Occupational Therapy Treatment Patient Name: Teresa Rivera Today's Date: 12/06/2024 OT Discharge Recommendations: Home with 24 hour assistance, Home health PT, Home health OT Equipment Recommended: Patient owns appropriate equipment Subjective Patient agreeable to OT treatment following RN's consent. Family reports she's getting a lot more weak , family requesting PT consult for re-evaluation- team made aware. Participants in Care Family/Caregiver Present: No Presentation Oxygen Therapy: Supplemental oxygen O2 Delivery Method: Nasal cannula O2 Flow Rate (L/min): 3 L/min Lines and Tubes: Intravenous access, Telemetry Pre-Session: Head of bed elevated, Lines intact, Sitting in chair Pre-Session Comments: family present at bedside Post-Session: Supine, Head of bed elevated, Bed alarm (zone 1, 2, 3), RN notified, Lines intact, Call light in reach Post-Session Comments: All needs met, pt requests to return to supine 2/2 fatigue, positioned for comfort and pressure relief in bed, family present, RN aware Precautions Medical Precautions: Fall precautions, Seizure precautions Objective Pain Patient does not rate generalized pain throughout session. Patient provided with cuing throughout activity for pain management techniques and provided with repositioning for comfort and pressure relief. Delirium Screening RASS: Alert and calm Confusion Assessment Method-ICU (CAM-ICU/PCAM-ICU) Feature 3: Altered Level of Consciousness: Negative Cognition Cognition Overall Cognitive Status: Impaired Arousal/Alertness: Appropriate responses to stimuli Mood/Behavior: Alert, Impulsive, Distractible Orientation Level: Oriented X4 Orientation Level Comments: increased time Single Step Commands: Consistently Multi-Step Commands: With increased time, With repetition, Consistently Method of Communication: Verbal Safety Judgment: Decreased awareness of need for assistance Awareness of Errors: Assistance required to identify errors made Deficit Awareness: Decreased awareness of deficits Patient family perseverate throughout conservation requiring redirection Self-Care Interventions Self Care/Home Management (ADLs) Time Entry: 40 Feeding Feeding Level of Assistance: Setup, Modified independent Feeding Where Assessed: Chair Level Feeding Interventions: pt demo's functional strength and dexterity needed for self feeding and drink system management, assist provided from family for food tray set up Grooming Grooming Level of Assistance: Contact guard Grooming Where Assessed: Chair level Grooming Interventions: set up for grooming routine from chair at tabletop using energy conservation and work simplification techniques, unable to complete standing at sink 2/2 elevated HR and dyspnea, min A for dyn standing balance Bathing UE Bathing Level of Assistance: Setup, Minimum assistance LE Bathing Level of Assistance: Maximum assistance, Setup Bathing: Where Assessed: Chair level Bathing Interventions: pt reports cont'd difficulty engaging in sponge bathing routine with RN assist 2/2 dyspnea, elevated HR, and generalized weakness with rapid fatigue UE Dressing UE Dressing Level of Assistance: Setup, SBA UE Dressing Where Assessed: Chair level UE Dressing Interventions: gown management and adjustments Lower Extremity Dressing Sock Level of Assistance: Maximum assistance, Setup Adult Briefs Level of Assistance: Maximum assistance, Setup LE Dressing Where Assessed: Chair level LE Dressing Interventions: pt requires max A for LB dressing management in standing following toileting routine, max A for sock management from sitting limited 2/2 body habitus with anterior reach and dyspnea with acute elevated HR Toileting Toileting Level of Assistance: Setup, Minimum assistance Where Assessed: Toilet Toileting Interventions: Min A for ambulation to/from bathroom using RW, CGA with max cuing for stand>sit on commode using grab bar and RW, min A for sit>stand from commode using grab bar, CGA for sitting balance with cuing for sequencing and safety with carole care in unsupported sitting Bed Mobility Bed Mobility Exam: Rolling/Turning Level of [place]: Stand-by assist Physical/Nonphysical Assist: Supervision, Verbal Cues Assistive Device: Bed rails Bed Mobility Exam: Scooting/Bridging Level of [place]: Contact guard Physical/Nonphysical Assist: Supervision, Verbal Cues Assistive Device: Bed rails Bed Mobility Exam: Sit to Supine Level of [place]: Minimum assist (75% patient's effort) Physical/Nonphysical Assist: Supervision, Verbal Cues, Maximal cues Assistive Device: Bed rails Transfers Transfer Exam: Sit to stand Level of [place]: Minimum assist (75% patient's effort) Physical/Nonphysical Assist: Supervision, Verbal Cues Assistive Device: Walker, rolling Transfer Exam: Stand to Sit Level of [place]: Minimum assist (75% patient's effort) Physical/Nonphysical Assist: Supervision, Verbal Cues Assistive Device: Walker, rolling Transfer Exam: Bed to Chair/Chair to Bed Level of [place]: Minimum assist (75% patient's effort) Physical/Nonphysical Assist: Supervision, Verbal Cues, Maximal cues Type of Transfer: Sidesteps Assistive Device: Walker, rolling Toilet Transfer Level of [place]: Minimum assist (75% patient's effort) (standard commode) Physical/Nonphysical Assist: Supervision, Verbal Cues, Maximal cues Type of Transfer: Ambulation, To toilet Assistive Device: Walker, rolling Functional Mobility Device: Rolling walker Assistance: Minimum assistance Distance : x15+20ft Ambulation Comments: HR fluctuates between 130's-160's with OOB activity, increased dyspnea withouthypoxia noted, rapid fatigue, CGA-Min A using RW, max cuing for safety 2/2 impulsivity Balance Postural Appearance Posture: Stooped posture, Forward head Static Sitting Balance Static Sitting-Balance Support: Right upper extremity support, Left upper extremity support, Feet supported Static Sitting-Level of Assistance: Standby assist Stating Sitting - Interventions: from chair Dynamic Sitting Balance Dynamic Sitting-Balance Support: Right upper extremity support, Left upper extremity support, Feet supported Dynamic Sitting-Balance: Lateral weight shifts, Anterior/Posterior weight shifts, Reaching for objects Level of Assistance: Contact guard Dynamic Sitting - Interventions: from chair Static Standing Balance Static Standing-Balance Support: Right upper extremity support, Left upper extremity support Static Standing-Level of Assistance: Contact guard Static Standing - Interventions: RW Dynamic Standing Balance Dynamic Standing-Balance Support: Right upper extremity support, Left upper extremity support Dynamic Standing-Balance: Lateral weight shifts, Anterior/Posterior weight shifts, Reaching for objects Dynamic Standing Level of Assistance: Minimum assistance Dynamic Standing - Interventions: RW Therapeutic Exercise (in prep for ADLs) pt encouraged to continue participation in dilcia UE AROM, all joints, all planes, within tolerance, 1-2 reps x10 each plane, 2-3x/daily, from sitting in chair or supine in bed as appropriate, for improved independence and strength needed for ADL/mobility participation, pt and family verbalize understanding Assessment Patient progressing toward OT goals, continue with cognitive, safety, pain management, strength, balance, endurance and activity tolerance training in prep for ADL/IADL tasks as pt continues to be limited primarily limited by generalized weakness, intermittent AMS, poor standing tolerance with ADL c ompletion, instability in standing using AD, intermittent pain, elevated HR, and dyspnea. RN is aware of elevated HR throughout session. Patient remains at high risk for falling with increased assistfrom staff/family for basic self care routines. Continue with OT POC and discharge recommendations-HHOT/PT recommendation added to d/c needs. OT Recommendations Discharge Destination: Home with 24 hour assistance, Home health PT, Home health OT Discharge Equipment: Patient owns appropriate equipment Plan Patient remains appropriate for current OT POC. Continue OT POC. Goals OT GOAL DETAILS Goal Established Date Time Frame Goal Status OT Goal 1: Pt will complete sit <> stand and toilet transfers with Mod(I) using AE PRN 11/30/24 2 weeks OT Goal 2: Pt will complete lower body dressing with Min A 11/30/24 2 weeks OT Goal 3: Pt will complete grooming tasks independently while standing at sink level 11/30/24 2 weeks OT Goal 4: Pt will complete 2 consecutive tx sessions without requiring cues for safety 11/30/24 2 weeks Written by Kasey Noriega on 12/06/24 at 1:12 PM. * Care Plan - Rupa Pierce RN - 12/06/2024 9:07 AM EDT Problem: Adult Inpatient Plan of Care Goal: Plan of Care Review Outcome: Ongoing, Progressing Flowsheets (Taken 12/06/2024903) Progress: improving Outcome Evaluation: Plan of care discussed with patient and family. Verbalized understanding. Plan of Care Reviewed With: patient family Goal: Patient-Specific Goal (Individualized) Outcome: Ongoing, Progressing Flowsheets (Taken 12/06/2024 0800) Patient/Family-Specific Goals (Include Timeframe): Patient will ambulate in [place] once during shift Individualized Care Needs: Mobility Anxieties, Fears or Concerns: None stated Goal: Absence of Hospital-Acquired Illness or Injury Outcome: Ongoing, Progressing Intervention: Prevent Skin Injury Flowsheets (Taken 12/06/2024903) Body Position: weight shifting Skin Protection: incontinence pads utilized Goal: Optimal Comfort and Wellbeing Outcome: Ongoing, Progressing Intervention: Provide Person-Centered Care Flowsheets (Taken 12/06/2024903) Trust Relationship/Rapport: care explained choices provided emotional support provided reassurance provided questions answered empathic listening provided questions encouraged thoughts/feelings acknowledged Goal: Readiness for Transition of Care Outcome: Ongoing, Progressing Intervention: Mutually Develop Transition Plan Flowsheets Taken 12/06/2024 0050 by Erin Hardwick, RN Equipment Currently Used at Home: walker, rollator commode chair Transportation Anticipated: family or friend will provide Current Discharge Risk: chronically ill Concerns to be Addressed: adjustment to diagnosis/illness coping/stress Readmission Within the Last 30 Days: previous discharge plan unsuccessful Patient/Family Anticipated Services at Transition: ed case manager outpatient care Patient's Choice of Community Agency(s): per case management Patient/Family Anticipates Transition to: home with family Offered/Gave Vendor List: other (see comments) Taken 12/05/2024 0147 by Erma Cary, RN Current Outpatient/Agency/Support Group: homecare agency Transportation Concerns: none Taken 12/03/2024 194 by Pepper Madden Discharge Coordination/Progress: per case management Problem: Fluid Volume Excess Goal: Fluid Balance Outcome: Ongoing, Progressing Intervention: Monitor and Manage Hypervolemia Flowsheets (Taken 12/06/2024903) Fluid/Electrolyte Management: fluids adjusted Skin Protection: incontinence pads utilized Problem: Fall Injury Risk Goal: Absence of Fall and Fall-Related Injury Outcome: Ongoing, Progressing Intervention: Identify and Manage Contributors Flowsheets (Taken 12/06/2024903) Medication Review/Management: medications reviewed Self-Care Promotion: independence encouraged BADL personal objects within reach Problem: Skin Injury Risk Increased Goal: Skin Health and Integrity Outcome: Ongoing, Progressing Intervention: Optimize Skin Protection Flowsheets (Taken 12/06/2024903) Activity Management: activity adjusted per tolerance activity encouraged Pressure Reduction Techniques: frequent weight shift encouraged Pressure Reduction Devices: positioning supports utilized Skin Protection: incontinence pads utilized Head of Bed (HOB) Positioning: HOB elevated Problem: Infection Goal: Absence of Infection Signs and Symptoms Outcome: Ongoing, Progressing Intervention: Prevent or Manage Infection Flowsheets Taken 12/06/2024903 by Rupa Pierce RN Fever Reduction/Comfort Measures: lightweight clothing lightweight bedding Isolation Precautions: precautions maintained contact Taken 12/06/202449 by Erin Hardwcik RN Infection Management: aseptic technique maintained Problem: Diabetes Goal: Blood Glucose Level Within Target Range Outcome: Ongoing, Progressing Intervention: Optimize Glycemic Control Flowsheets (Taken 12/06/2024903) Hyperglycemia Management: blood glucose monitored Goal: Minimize Hypoglycemia Risk Outcome: Ongoing, Progressing Intervention: Minimize and Manage Hypoglycemia Flowsheets (Taken 12/06/2024903) Hypoglycemia Management: blood glucose monitored Problem: Seizure, Active Management Goal: Absence of Seizure/Seizure-Related Injury Outcome: Ongoing, Progressing Intervention: Prevent Seizure-Related Injury Flowsheets (Taken 12/06/2024903) Sensory Stimulation Regulation: care clustered quiet environment promoted Aspiration Prevention During Seizure: (No seizure activity) other (see comments) Seizure Precautions: activity supervised clutter-free environment maintained side rails padded Problem: Acute Kidney Injury/Impairment Goal: Effective Renal Function Outcome: Ongoing, Progressing Intervention: Monitor and Support Renal Function Flowsheets (Taken 12/06/2024903) Stabilization Measures: legs elevated Medication Review/Management: medications reviewed Problem: Pain Acute Goal: Optimal Pain Control and Function Outcome: Ongoing, Progressing Intervention: Optimize Psychosocial Wellbeing Flowsheets (Taken 12/06/2024903) Supportive Measures: active listening utilized decision-making supported self-care encouraged relaxation techniques promoted Diversional Activities: television Spiritual Activities Assistance: affirmation provided * Care Plan - Erin Hardwick RN - 12/06/2024 1:02 AM EDT Problem: Adult Inpatient Plan of Care Goal: Plan of Care Review Outcome: Ongoing, Progressing Flowsheets (Taken 12/06/202449) Progress: improving Outcome Evaluation: Plan of care ongoing and reviewed with patient pt verbalizes understanding Plan of Care Reviewed With: patient Goal: Patient-Specific Goal (Individualized) Outcome: Ongoing, Progressing Flowsheets (Taken 12/05/20241999) Patient/Family-Specific Goals (Include Timeframe): pt will be free of falls/injury this 7p shift from 12-05-24 to 12-06-24 Individualized Care Needs: safety Anxieties, Fears or Concerns: denies Goal: Absence of Hospital-Acquired Illness or Injury Outcome: Ongoing, Progressing Intervention: Identify and Manage Fall Risk Flowsheets (Taken 12/05/20241999) Safety Promotion/Fall Prevention: activity supervised assistive device/personal items within reach clutter-free environment maintained fall prevention program maintained lighting adjusted mobility aid in reach nonskid shoes/slippers when out of bed room organization consistent safety round/check completed toileting scheduled Intervention: Prevent Skin Injury Flowsheets Taken 12/06/202449 Body Position: turned left legs elevated Taken 12/05/20241999 Skin Protection: drying agents applied protective footwear used pulse oximeter probe site changed transparent dressing maintained incontinence pads utilized Intervention: Prevent and Manage VTE (Venous Thromboembolism) Risk Flowsheets (Taken 12/06/2024 0000) VTE Prevention/Management: bilateral SCDs (sequential compression devices) off Note: Pt ambulating Intervention: Prevent Infection Flowsheets (Taken 12/06/202449) Infection Prevention: hand hygiene promoted single patient room provided equipment surfaces disinfected rest/sleep promoted environmental surveillance performed Goal: Optimal Comfort and Wellbeing Outcome: Ongoing, Progressing Intervention: Monitor Pain and Promote Comfort Flowsheets (Taken 12/06/202449) Pain Management Interventions: pain management plan reviewed with patient/caregiver emotional support care clustered medication offered but refused rest relaxation techniques promoted position adjusted pillow support provided ambulation/increased activity Intervention: Provide Person-Centered Care Flowsheets (Taken 12/06/202449) Trust Relationship/Rapport: care explained choices provided emotional support provided empathic listening provided questions answered thoughts/feelings acknowledged reassurance provided questions encouraged Goal: Readiness for Transition of Care Outcome: Ongoing, Progressing Intervention: Mutually Develop Transition Plan Flowsheets Taken 12/06/202449 by Erin Hardwick RN Equipment Currently Used at Home: walker, rollator commode chair Transportation Anticipated: family or friend will provide Current Discharge Risk: chronically ill Concerns to be Addressed: adjustment to diagnosis/illness coping/stress Readmission Within the Last 30 Days: previous discharge plan unsuccessful Patient/Family Anticipated Services at Transition: ed case manager outpatient care Patient's Choice of Community Agency(s): per case management Patient/Family Anticipates Transition to: home with family Offered/Gave Vendor List: other (see comments) Taken 12/05/2024 0147 by Erma Cary, JOSE MARTIN Transportation Concerns: none Problem: Fluid Volume Excess Goal: Fluid Balance Outcome: Ongoing, Progressing Intervention: Monitor and Manage Hypervolemia Flowsheets Taken 12/06/202449 Fluid/Electrolyte Management: fluids provided Taken 12/05/20241999 Skin Protection: drying agents applied protective footwear used pulse oximeter probe site changed transparent dressing maintained incontinence pads utilized Problem: Fall Injury Risk Goal: Absence of Fall and Fall-Related Injury Outcome: Ongoing, Progressing Intervention: Identify and Manage Contributors Flowsheets (Taken 12/06/202449) Medication Review/Management: medications reviewed Self-Care Promotion: independence encouraged BADL personal objects within reach BADL personal routines maintained Intervention: Promote Injury-Free Environment Flowsheets (Taken 12/05/20241999) Safety Promotion/Fall Prevention: activity supervised assistive device/personal items within reach clutter-free environment maintained fall prevention program maintained lighting adjusted mobility aid in reach nonskid shoes/slippers when out of bed room organization consistent safety round/check completed toileting scheduled Problem: Skin Injury Risk Increased Goal: Skin Health and Integrity Outcome: Ongoing, Progressing Intervention: Optimize Skin Protection Flowsheets Taken 12/06/202449 Pressure Reduction Techniques: frequent weight shift encouraged weight shift assistance provided heels elevated off bed Pressure Reduction Devices: positioning supports utilized Taken 12/05/20241999 Activity Management: activity encouraged Skin Protection: drying agents applied protective footwear used pulse oximeter probe site changed transparent dressing maintained incontinence pads utilized Head of Bed (HOB) Positioning: HOB elevated Intervention: Promote and Optimize Oral Intake Flowsheets (Taken 12/06/202449) Oral Nutrition Promotion: calorie-dense foods provided Nutrition Interventions: food preferences provided Problem: Infection Goal: Absence of Infection Signs and Symptoms Outcome: Ongoing, Progressing Intervention: Prevent or Manage Infection Flowsheets Taken 12/06/202449 Infection Management: aseptic technique maintained Fever Reduction/Comfort Measures: lightweight bedding lightweight clothing Taken 12/05/20241999 Isolation Precautions: contact precautions maintained Problem: Diabetes Goal: Blood Glucose Level Within Target Range Outcome: Ongoing, Progressing Intervention: Optimize Glycemic Control Flowsheets (Taken 12/06/202449) Hyperglycemia Management: blood glucose monitored Goal: Minimize Hypoglycemia Risk Outcome: Ongoing, Progressing Intervention: Minimize and Manage Hypoglycemia Flowsheets (Taken 12/06/202449) Hypoglycemia Management: blood glucose monitored Problem: Seizure, Active Management Goal: Absence of Seizure/Seizure-Related Injury Outcome: Ongoing, Progressing Intervention: Prevent Seizure-Related Injury Flowsheets (Taken 12/06/202449) Sensory Stimulation Regulation: care clustered lighting decreased quiet environment promoted auditory stimulation minimized visual stimulation minimized Aspiration Prevention During Seizure: (no seizure activity) other (see comments) Seizure Precautions: activity supervised clutter-free environment maintained side rails padded Problem: Acute Kidney Injury/Impairment Goal: Effective Renal Function Outcome: Ongoing, Progressing Intervention: Monitor and Support Renal Function Flowsheets (Taken 12/06/202449) Stabilization Measures: legs elevated Medication Review/Management: medications reviewed Problem: Pain Acute Goal: Optimal Pain Control and Function Outcome: Ongoing, Progressing Intervention: Optimize Psychosocial Wellbeing Flowsheets (Taken 12/06/202449) Supportive Measures: active listening utilized verbalization of feelings encouraged positive reinforcement provided self-care encouraged decision-making supported Diversional Activities: television Spiritual Activities Assistance: affirmation provided Intervention: Develop Pain Management Plan Flowsheets (Taken 12/06/202449) Pain Management Interventions: pain management plan reviewed with patient/caregiver emotional support care clustered medication offered but refused rest relaxation techniques promoted position adjusted pillow support provided ambulation/increased activity Intervention: Prevent or Manage Pain Flowsheets (Taken 12/06/202449) Sensory Stimulation Regulation: care clustered lighting decreased quiet environment promoted auditory stimulation minimized visual stimulation minimized Bowel Elimination Promotion: adequate fluid intake promoted Sleep/Rest Enhancement: awakenings minimized regular sleep/rest pattern promoted room darkened noise level reduced consistent schedule promoted relaxation techniques promoted Medication Review/Management: medications reviewed * Progress Notes - Noemí Leigh MD - 12/05/2024 5:35 PM EDT Daily Progress Note Chief Complaint Right ear pain, headache Subjective Still not feeling well. Still has a headache and ear pain. She requests we stop the ear drops - shefeels like it's making the pain worse. Not eating much. Still going in and out of AF with RVR. Last Recorded Vitals Blood pressure 130/73, pulse (!) 150, temperature 37.1 ??C (98.8 ??F), temperature source Oral, resp. rate 22, height 1.702 m (5' 7 ), weight 119 kg (262 lb 9.1 oz), SpO2 97%. Physical Exam Awake and alert. Oriented x 3. HEENT: PERRL. Mouth clear. Neck supple. Incision over cranium without redness or warmth but had some yellow drainage from the posterior aspect. Chest: Diminished breath sounds bilaterally with fine crackles. Wet sounding cough. Heart: RRR no RMG Abd: Soft, NT, ND, BS+ normally active. Ext: 1+ edema in lower extremities Labs (in last 18 hours): CBC WBC 6.68 Hb 7.6 (L) Plt 260 Hct 24.8 (L) ANC ?? INR ??, PTT ??, Anti-Xa ?? BMP Na 147 (H) Cl 107 BUN 11 Glu 153 (H) K 3.5 (L) Co2 28 Cr 2.31 (H) Ca 8.6 (L) iCa ?? Mg 1.5 (L), Phos ?? Lactate ?? LFT AST ?? AlkPhos ?? T Prot ?? ALK ?? Bili ?? Alb ?? D.Bili ?? Microbiology: Results Procedure Component Value Units Date/Time Blood Culture (Aerobic/Anaerobet Set) [[id number]] Collected: 11/30/24 0232 Order Status: Completed Specimen: Blood, Venous Updated: 11/30/24524 Culture Culture in lab Streptococcus pneumoniae and Legionella Urinary Antigen [[id number]] (Normal) Collected: 11/30/24 0209 Order Status: Completed Specimen: Urine, Clean Catch Updated: 11/30/24517 Legionella pneumophila serogroup 1 Antigen Result (Urine) Negative Streptococcus pneumoniae Antigen Result (Urine) Negative Nasopharyngeal Respiratory Panel [[id number]] (Normal) Collected: 11/30/24208 Order Status: Completed Specimen: Swab from Nasopharynx Updated: 11/30/24 0505 Nasopharyngeal Respiratory PCR Interpretation Not Detected for all analytes Narrative: This assay can detect Adenovirus, Coronavirus, Human [...] Respiratory PCR Panel is performed using the Olo instrument. This test is FDA approved for use with Nasopharyngeal swabs only. This test is used for clinical purposes. It should not be regarded as investigational or for research. The [facility] is certified under the Clinical Laboratory Improvement Amendments of 1988 (CLIA-88) as qualified to perform high complexity clinical laboratory testing. Blood Culture (Aerobic/Anaerobet Set) [[id number]] Collected: 11/30/24208 Order Status: Completed Specimen: Blood, Venous Updated: 11/30/24 0501 Culture Culture in lab SARS CoV-2/COVID-19 by PCR [[id number]] (Normal) Collected: 11/30/24208 Order Status: Completed Specimen: Swab from Nasopharynx Updated: 11/30/24 0402 SARS CoV-2/COVID-19 RNA PCR Result Not Detected Narrative: This test is FDA approved for use with nasopharyngeal specimens in Viral Transport Media (VTM). This test is used for clinical purposes. It should not be regarded as investigational or for research. This laboratory is certified under the Clinical Laboratory improvement Amendments of 1988 (CLIA-88 as qualified to perform high complexity clinical laboratory testing. This test was performed on the StudySoup XpCartiCure SARS CoV-2 Plus assay test, a PCR- based method. Negative results should be considered presumptive and do not preclude current or future infection obtained through community transmission or other exposures. Negative results must be considered in the context of an individual's recent exposures, history, presence of clinical signs and symptoms consistent with COVID-19. Multi Drug Resistance Test [[id number]] Collected: 11/30/24 0209 Order Status: Sent Specimen: Swab from Nares and Carole Rectal Updated: 11/30/24312 Respiratory Culture and Gram Stain [[id number]] Order Status: Sent Specimen: Sputum, Expectorated Imaging (in last 24 hours): All Images reviewed by me US Renal Complete Result Date: 11/30/2024 No hydronephrosis. CRITICAL RESULT: No. COMMUNICATION: Per this written report. Preliminary report signed by Ashu Fontana MD on 11/30/2024 1:32 PM By electronically signing this report, I, the attending physician, attest that I have personally reviewed the images/data for the above examination(s) and agree with the final edited report. Drafted by Ashu Fontana MD on 11/30/2024 1:26 PM Final report signed by Anna Dee MD on 11/30/2024 2:15 PM VAS US Venous Duplex Lower Extremity Bilateral Result Date: 11/30/2024 Right: Normal study; no evidence of acute DVT is identified. Left: Normal study; no evidence of acute DVT is identified. COMMUNICATION: Per this written report. Preliminary report signed by Anum Hurley RVT on 11/30/2024 7:45 AM By electronically signing this report, I, the attending physician, attest that I have personally reviewed the images/data for the above examination(s) and I agree with thefinal edited report. Drafted by Anum Hurley RVT on 11/30/2024 7:44 AM Final report signed by Laura Meeks MD on 11/30/2024 9:44 AM XR Chest 1 View Result Date: 11/29/2024 Persistent airspace disease within the right upper lung with left basilar atelectasis and possible trace left pleural effusion. Atelectasis versus infection in the right lower lung zone laterally CRITICAL RESULT: No. COMMUNICATION: Per this written report. Preliminary report signed by Tim Ozuna DO on 11/29/2024 7:52 PM By electronically signing this report, I, the attending physician, attestthat I have personally reviewed the images/data for the above examination(s) and agree with the final edited report. Drafted by Tim Ozuna DO on 11/29/2024 7:51 PM Final report signed by Mathew Mathew MD on 11/29/2024 8:[address] Head wo IV Contrast Result Date: 11/29/2024 Similar appearance of small amount of subdural blood beneath left parietal craniotomy flap just left of the vertex. Similar appearance of adjacent left parafalcine subdural hematoma. No new findings.CRITICAL RESULT: No. COMMUNICATION: Per this written report. 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 Seizure - Likely new symptom (maybe had seizure 1 week CHEF DE CUISINE, witnessed seizure 11/29). Apparently Keppra had been stopped postoperatively prior to this event. - Possible etiology: prior surgery, infection, medications, previous TBI, and recent SAH/SDH - CT head: no acute/new findings, similar appearance of small amount of subdural blood - No seizures noted on EEG - Discussed MRI brain findings with Neurosurgery 12/02; recommend continuing Keppra at renal dosing.Again discussed possible meningitis with Neurosurgery (LGF, after seizure). Images reviewed and they do not think source of her infection is meningitis (per resident Monique Dahl, discussed with Dr. Bangura). - In light of LGF with new seizure, will pursue LP, scheduled for tomorrow with IR. LGF External Otitis Headache - No photophobia on exam - CXR negative for infiltrate - No urinary symptoms and admission UA negative for infection. - Started empiric ceftriaxone and vancomycin (limited by JORGE) and added ampicillin today. Broadenedceftriaxone to cefepime because pseudomonas noted from sputum culture. This pseudomonas is likely colonization because she does not have respiratory symptoms so would have low threshold to narrow once CSF cultures are back. - Started Cortisporin gtt QID right ear 12/01, stopped today per patient request. 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 Discussed with Neurosurgery 12/01. They have evaluated and there are no surgical recommendations. Will continue with plans for continuing OPchemotherapy pending other medical issues. - Discussed with Med Onc on rounds today. Chronic Conditions or Resolved issues: Diplopia, resolved - No changes on MRI brain to explain this symptom. Atrial flutter/fibrillation - Followed by cardiology for atrial flutter/fibrillation; history of ablation - Noted to be mostly in NSR on tele; intermittent, short episodes of AF with RVR, asymptomatic. History of bradycardia and hypotension with higher doses of metoprolol. Home dose 50mg BID but here titrating up and currently at 25mg TID. OK to give extra dose if needed. - Home meds: lasix, spiralactone, htcz-triamterene, metoprolol, losartan. Per sister, not taking most of these. Started Lasix due to wet cough. Will add back GDMT as BP allows. - Have been holding anticoagulation due to recent SAH/SDH on 11/15. The initial plan was to hold for 2 weeks so she is in the window to restart. Discussed with her, planning to start therapeutic Lovenox (but holding dose due to plans for LP). Type II DM - Last A1c, 08/2024: 6.3% - home regimen: metformin, Januvia - Hospital regimen: Insulin sliding scale Anemia, chronic disease - monitor, transfuse for hgb < 7.0 HTN - meds as above HLD - atorvastatin COPD on 2L NC- no signs of exacerbation, home meds: Breztri, cetirizine, montelukast, continue + duo nebs prn GERD - protonix, tums Chronic hypomagnesemia - Mag oxide Anxiety/Depression - hydroxyzine, fluoxetine Neuropathy/Chronic Pain -gabapentin, dose reduced for JORGE Chemo induced Nausea and Vomiting - Zofran and Compazine IVF: Saline lock. Hypokalemia - replaced orally. Hypomagnesemia - replaced IV and orally. Diet: Adult diet Diet texture: Regular; Carbohydrate restriction: Consistent Carb 2 (80 gm max/meal); Sodium restriction: 2,000 mg Na Last bowel movement: 12/05/24 Lines/Tubes: PIV Venous thromboembolism prophylaxis: SCDs only Code status: Full Code Discharge planning Anticipate home. Spouse 2 months ago so now lives alone. She is planning to stay with her sister short term. Sister confirms. Updated sister today per patient request. Medically Ready for Discharge:Anticipated in 2-4 Days Noemí Leigh MD [facility] [1] ampicillin, 2 g, Intravenous, q6h calcium-vitamin D, 1 tablet, Oral, Daily cefepime, 2 g, Intravenous, q12h cetirizine, 5 mg, Oral, Daily cyanocobalamin, 1,000 mcg, Oral, Daily [Held by provider] enoxaparin, 1 mg/kg, Subcutaneous, q24h ferrous sulfate, 324 mg, Oral, Daily with breakfast FLUoxetine, 40 mg, Oral, Daily furosemide, 40 mg, Oral, Daily gabapentin, 100 mg, Oral, 4x daily insulin lispro, 0-5 Units, Subcutaneous, TID with meals insulin lispro, 0-3 Units, Subcutaneous, Twice at night levETIRAcetam, 750 mg, Oral, BID magnesium oxide, 400 mg, Oral, BID melatonin, 6 mg, Oral, Nightly metoprolol tartrate, 25 mg, Oral, TID Tiotropium [place] Monohydrate, 2 puff, Inhalation, Daily And mometasone-formoterol, 2 puff, Inhalation, BID montelukast, 10 mg, Oral, Nightly nystatin, , Topical, BID pantoprazole, 40 mg, Oral, Daily sodium chloride, 10 mL, Intravenous, q12h vancomycin (Vancocin) intermittent dosing, 1 each, Intravenous, See admin instructions [2] [3] PRN medications: acetaminophen, calcium carbonate, glucose OR dextrose 10 % OR [id number] % OR glucagon (human recombinant), hydrOXYzine HCl, ipratropium-albuterol, Alum & Mag hydroxide, Zinc Oxide, Cholestyramine, magic mouthwash BLM, polyethylene glycol, prochlorperazine, Insert peripheral IV AND Saline lock IV AND sodium chloride AND sodium chloride * Progress Notes - Lourdes Mckeon - 12/05/2024 11:14 AM EDT Case Management Adult Progress Note Teresa Rivera 64 y.o. female CSN: [id number] Admission: 11/29/2024 3:11 PM Primary Problem: Seizures (CMS/HCC) Anticipated Discharge Date: Unknown. Has Discharge Plans Changed? Disposition is home with support from family and resumption of HH. PT/OT recs are home with 24/7 assistance and PT/OT. Pt is current with [facility] . SW will send resumption of care orders at d/c. Medically Ready for Discharge: Anticipated in 2-4 Days Additional Comments Per medical team, ongoing symptom management. Pt is currently on IV abx. Not yet medically ready. SW will continue to follow. Lourdes Mckeon * Care Plan - Rupa Pierce RN - 12/05/2024 9:40 AM EDT Problem: Adult Inpatient Plan of Care Goal: Plan of Care Review Outcome: Ongoing, Progressing Flowsheets (Taken 12/05/2024 0938) Progress: improving Outcome Evaluation: Plan of care reviewed with patient. Plan of Care Reviewed With: patient Goal: Patient-Specific Goal (Individualized) Outcome: Ongoing, Progressing Flowsheets (Taken 12/05/2024 0800) Patient/Family-Specific Goals (Include Timeframe): Will be free of falls throughout shift Individualized Care Needs: Safety Anxieties, Fears or Concerns: None stated Goal: Absence of Hospital-Acquired Illness or Injury Outcome: Ongoing, Progressing Intervention: Identify and Manage Fall Risk Flowsheets (Taken 12/05/2024 0938) Safety Promotion/Fall Prevention: activity supervised clutter-free environment maintained Goal: Optimal Comfort and Wellbeing Outcome: Ongoing, Progressing Intervention: Provide Person-Centered Care Flowsheets (Taken 12/05/2024937) Trust Relationship/Rapport: care explained choices provided reassurance provided questions answered Goal: Readiness for Transition of Care Outcome: Ongoing, Progressing Intervention: Mutually Develop Transition Plan Flowsheets (Taken 12/05/2024146 by Erma Cary, RN) Equipment Currently Used at Home: commode chair oxygen walker, rollator pulse oximeter Current Outpatient/Agency/Support Group: homecare agency Concerns to be Addressed: adjustment to diagnosis/illness basic needs care coordination/care conferences Readmission Within the Last 30 Days: previous discharge plan unsuccessful Patient/Family Anticipated Services at Transition: education services home health care outpatient care Patient/Family Anticipates Transition to: home with family Problem: Fluid Volume Excess Goal: Fluid Balance Outcome: Ongoing, Progressing Intervention: Monitor and Manage Hypervolemia Flowsheets (Taken 12/05/2024937) Fluid/Electrolyte Management: fluids provided Skin Protection: incontinence pads utilized Problem: Fall Injury Risk Goal: Absence of Fall and Fall-Related Injury Outcome: Ongoing, Progressing Intervention: Identify and Manage Contributors Flowsheets (Taken 12/05/2024937) Medication Review/Management: medications reviewed Self-Care Promotion: independence encouraged BADL personal objects within reach Problem: Skin Injury Risk Increased Goal: Skin Health and Integrity Outcome: Ongoing, Progressing Intervention: Optimize Skin Protection Flowsheets (Taken 12/05/2024937) Activity Management: activity adjusted per tolerance activity encouraged Pressure Reduction Techniques: frequent weight shift encouraged Pressure Reduction Devices: positioning supports utilized Skin Protection: incontinence pads utilized Head of Bed (HOB) Positioning: HOB elevated Problem: Infection Goal: Absence of Infection Signs and Symptoms Outcome: Ongoing, Progressing Intervention: Prevent or Manage Infection Flowsheets (Taken 12/05/2024937) Infection Management: aseptic technique maintained Fever Reduction/Comfort Measures: lightweight bedding lightweight clothing Isolation Precautions: precautions maintained contact Problem: Diabetes Goal: Blood Glucose Level Within Target Range Outcome: Ongoing, Progressing Intervention: Optimize Glycemic Control Flowsheets (Taken 12/05/2024 014 by Erma Cary, RN) Hyperglycemia Management: blood glucose monitored Goal: Minimize Hypoglycemia Risk Outcome: Ongoing, Progressing Intervention: Minimize and Manage Hypoglycemia Flowsheets (Taken 12/05/2024937) Hypoglycemia Management: blood glucose monitored Problem: Seizure, Active Management Goal: Absence of Seizure/Seizure-Related Injury Outcome: Ongoing, Progressing Intervention: Prevent Seizure-Related Injury Flowsheets (Taken 12/05/2024 0938) Sensory Stimulation Regulation: care clustered quiet environment promoted Aspiration Prevention During Seizure: (No seizure activity) other (see comments) Seizure Precautions: activity supervised clutter-free environment maintained Problem: Acute Kidney Injury/Impairment Goal: Effective Renal Function Outcome: Ongoing, Progressing Intervention: Monitor and Support Renal Function Flowsheets (Taken 12/05/2024 0938) Stabilization Measures: legs elevated Medication Review/Management: medications reviewed * Care Plan - Erma Cary RN - 12/05/2024 1:55 AM EDT Problem: Adult Inpatient Plan of Care Goal: Plan of Care Review Outcome: Ongoing, Progressing Flowsheets (Taken 12/05/2024 014) Progress: improving Outcome Evaluation: Patient will complete the antibiotics course. Plan of Care Reviewed With: patient Goal: Patient-Specific Goal (Individualized) Outcome: Ongoing, Progressing Flowsheets (Taken 12/04/20241999) Patient/Family-Specific Goals (Include Timeframe): Patient will remain free from injury this shift. Individualized Care Needs: Safety Anxieties, Fears or Concerns: Prognosis Goal: Absence of Hospital-Acquired Illness or Injury Outcome: Ongoing, Progressing Intervention: Identify and Manage Fall Risk Flowsheets (Taken 12/05/2024 014) Safety Promotion/Fall Prevention: activity supervised fall prevention program maintained assistive device/personal items within reach lighting adjusted clutter-free environment maintained nonskid shoes/slippers when out of bed safety round/check completed room organization consistent toileting scheduled Intervention: Prevent Skin Injury Flowsheets (Taken 12/05/2024 014) Body Position: turned left weight shifting education provided Skin Protection: incontinence pads utilized pulse oximeter probe site changed Goal: Optimal Comfort and Wellbeing Outcome: Ongoing, Progressing Intervention: Provide Person-Centered Care Flowsheets (Taken 12/05/2024146) Trust Relationship/Rapport: care explained choices provided emotional support provided empathic listening provided questions answered questions encouraged thoughts/feelings acknowledged Goal: Readiness for Transition of Care Outcome: Ongoing, Progressing Intervention: Mutually Develop Transition Plan Flowsheets (Taken 12/05/2024146) Equipment Currently Used at Home: commode chair oxygen walker, rollator pulse oximeter Current Outpatient/Agency/Support Group: homecare agency Transportation Concerns: none Concerns to be Addressed: adjustment to diagnosis/illness basic needs care coordination/care conferences Readmission Within the Last 30 Days: previous discharge plan unsuccessful Patient/Family Anticipated Services at Transition: education services home health care outpatient care Patient/Family Anticipates Transition to: home with family Problem: Fluid Volume Excess Goal: Fluid Balance Outcome: Ongoing, Progressing Intervention: Monitor and Manage Hypervolemia Flowsheets (Taken 12/05/2024146) Fluid/Electrolyte Management: fluids provided Skin Protection: incontinence pads utilized pulse oximeter probe site changed Problem: Fall Injury Risk Goal: Absence of Fall and Fall-Related Injury Outcome: Ongoing, Progressing Intervention: Identify and Manage Contributors Flowsheets (Taken 12/05/2024146) Medication Review/Management: medications reviewed high-risk medications identified Self-Care Promotion: independence encouraged BADL personal objects within reach meal set-up provided Intervention: Promote Injury-Free Environment Flowsheets (Taken 12/05/2024146) Safety Promotion/Fall Prevention: activity supervised fall prevention program maintained assistive device/personal items within reach lighting adjusted clutter-free environment maintained nonskid shoes/slippers when out of bed safety round/check completed room organization consistent toileting scheduled Problem: Skin Injury Risk Increased Goal: Skin Health and Integrity Outcome: Ongoing, Progressing Intervention: Optimize Skin Protection Flowsheets (Taken 12/05/2024146) Activity Management: activity adjusted per tolerance Pressure Reduction Techniques: weight shift assistance provided heels elevated off bed Pressure Reduction Devices: positioning supports utilized heel offloading device utilized Skin Protection: incontinence pads utilized pulse oximeter probe site changed Head of Bed (HOB) Positioning: HOB elevated HOB at 30-45 degrees Intervention: Promote and Optimize Oral Intake Flowsheets (Taken 12/05/2024146) Oral Nutrition Promotion: calorie-dense foods provided physical activity promoted social interaction promoted Nutrition Interventions: diet liberalized meal set-up provided supplemental drinks provided Problem: Infection Goal: Absence of Infection Signs and Symptoms Outcome: Ongoing, Progressing Intervention: Prevent or Manage Infection Flowsheets (Taken 12/05/2024146) Infection Management: aseptic technique maintained Fever Reduction/Comfort Measures: lightweight clothing lightweight bedding Isolation Precautions: precautions maintained contact protective Problem: Diabetes Goal: Blood Glucose Level Within Target Range Outcome: Ongoing, Progressing Intervention: Optimize Glycemic Control Flowsheets (Taken 12/05/2024 014) Hyperglycemia Management: blood glucose monitored Goal: Minimize Hypoglycemia Risk Outcome: Ongoing, Progressing Intervention: Minimize and Manage Hypoglycemia Flowsheets (Taken 12/05/2024 014) Hypoglycemia Management: blood glucose monitored Problem: Seizure, Active Management Goal: Absence of Seizure/Seizure-Related Injury Outcome: Ongoing, Progressing Intervention: Prevent Seizure-Related Injury Flowsheets (Taken 12/05/2024 014) Sensory Stimulation Regulation: care clustered quiet environment promoted Seizure Precautions: clutter-free environment maintained side rails padded Problem: Acute Kidney Injury/Impairment Goal: Effective Renal Function Outcome: Ongoing, Progressing Intervention: Monitor and Support Renal Function Flowsheets (Taken 12/05/2024 014) Stabilization Measures: legs elevated tactile stimulation provided Medication Review/Management: medications reviewed high-risk medications identified * Progress Notes - Melvin Veloz PharmD - 12/04/2024 8:37 PM EDT Pharmacokinetic Consult - Therapeutic Drug Monitoring HPI and Hospital Course: Teresa Rivera is a 64 y.o. female presenting with seizure who was startedon IV vancomycin for possible meningitis. Pharmacy was consulted for management of vancomycin. Dose History: Recent Vancomycin Admin vancomycin (Vancocin) 2,500 mg in sodium chloride 0.9 % 500 mL IVPB (mg) 2,500 mg Given 12/03/24 1757 Wt Readings from Last 1 Encounters: 12/04/24 118 kg (259 lb 0.7 oz) BMI: 40.57 kg/m?? Creatinine, Plasma (mg/dL) Date/Time Value 12/04/2024 0130 2.42 (H) 12/03/2024 0030 2.64 (H) 12/02/2024 0344 2.82 (H) Estimated Creatinine Clearance: 31.2 mL/min (A) (by C-G formula based on SCr of 2.42 mg/dL (H)). Assessment Estimated kinetic evaluation utilizing population kinetics (Patient without first-dose kinetics): CrCl using Lima-Rockham Equation: 35.1 mL/min Vd: 82.6 L k = 0.237465 hr^-1 Half-life: 20.67 hours Cl = 2.77 L/hr TDD: 1384.91 mg Dosing interval (utilizing a desired Cmax of 40 and Cmin of 15): ~31 hours Calculated MD: 1774.4 mg Suggested MD regimen: 2250mg q36hrs Predicted Cmax: 39.73 Predicted Ctrough: 12.2 Predicted AUC: ~542 Plan 1. Pt was given LD of 2500 mg on 12/03 at 1757. 2. Recommend vancomycin 2250mg (19.1 mg/kg) x 1 on 12/05 at 0600. Recommend continuing intermittent vancomycin dosing iso of recent JORGE. Pt renal function improving but still requiring close monitoring of vancomycin levels to ensure adequate therapy. 3. Monitor renal function (Scr and BUN) and UOP at least 2-3x/week or more frequently if renal function changes. 4. Recommend scheduling vancomycin levels 2 hours after infusion and 24 hours post dose (the 2 hourpost infusion level has been ordered but not the 24 hour level) to better calculate pt specific vancomycin dosing kinetics which will aid with future dosing iso of unstable renal function. Pharmacy will continue to follow. Submitted by: Melvin Veloz PharmD 12/04/2024 7:22 PM * Progress Notes - Noemí Leigh MD - 12/04/2024 11:03 AM EDT Daily Progress Note Chief Complaint Right ear pain, headache Subjective Had another LGF overnight to 100.5. Right ear pain and headache persist. She had some purulent drainage from her crani incision site without redness over site. Still having episodes of AF with RVR but converts back to NSR quickly without intervention. Doesn't feel like eating. Sister at bedside. Feels tired. Last Recorded Vitals Blood pressure 123/70, pulse (!) 145, temperature 37.2 ??C (98.9 ??F), temperature source Oral, resp. rate 21, height 1.702 m (5' 7 ), weight 118 kg (259 lb 0.7 oz), SpO2 93%. Physical Exam Awake and alert. Oriented x 3. HEENT: PERRL. Mouth clear. Neck supple. Attempted to visualized right TM but otoscope was blurry; unable to visualize TM well. Incision over cranium without redness or warmth but had some yellow drainage from the posterior aspect. Chest: Diminished breath sounds bilaterally with fine crackles. Wet sounding cough. Heart: RRR no RMG Abd: Soft, NT, ND, BS+ normally active. Ext: 1+ edema in lower extremities Labs (in last 18 hours): CBC WBC 7.07 Hb 7.5 (L) Plt 242 Hct 24.4 (L) ANC ?? INR ??, PTT ??, Anti-Xa ?? BMP Na 144 Cl 106 BUN 14 Glu 147 (H) K 3.8 Co2 26 Cr 2.42 (H) Ca 8.4 (L) iCa ?? Mg ??, Phos ?? Lactate ?? LFT AST ?? AlkPhos ?? T Prot ?? ALK ?? Bili ?? Alb ?? D.Bili ?? Microbiology: Results Procedure Component Value Units Date/Time Blood Culture (Aerobic/Anaerobet Set) [[id number]] Collected: 11/30/24 0232 Order Status: Completed Specimen: Blood, Venous Updated: 11/30/24 0525 Culture Culture in lab Streptococcus pneumoniae and Legionella Urinary Antigen [[id number]] (Normal) Collected: 11/30/24 020 Order Status: Completed Specimen: Urine, Clean Catch Updated: 11/30/24 0518 Legionella pneumophila serogroup 1 Antigen Result (Urine) Negative Streptococcus pneumoniae Antigen Result (Urine) Negative Nasopharyngeal Respiratory Panel [[id number]] (Normal) Collected: 11/30/24 0209 Order Status: Completed Specimen: Swab from Nasopharynx Updated: 11/30/24 0505 Nasopharyngeal Respiratory PCR Interpretation Not Detected for all analytes Narrative: This assay can detect Adenovirus, Coronavirus, Human [...] Respiratory PCR Panel is performed using the PowerPot ePlex instrument. This test is FDA approved for use with Nasopharyngeal swabs only. This test is used for clinical purposes. It should not be regarded as investigational or for research. The [facility] is certified under the Clinical Laboratory Improvement Amendments of 1988 (CLIA-88) as qualified to perform high complexity clinical laboratory testing. Blood Culture (Aerobic/Anaerobet Set) [[id number]] Collected: 11/30/24208 Order Status: Completed Specimen: Blood, Venous Updated: 11/30/24 0501 Culture Culture in lab SARS CoV-2/COVID-19 by PCR [[id number]] (Normal) Collected: 11/30/24208 Order Status: Completed Specimen: Swab from Nasopharynx Updated: 11/30/24 0402 SARS CoV-2/COVID-19 RNA PCR Result Not Detected Narrative: This test is FDA approved for use [...] clinical signs and symptoms consistent with COVID-19. Multi Drug Resistance Test [[id number]] Collected: 11/30/24208 Order Status: Sent Specimen: Swab from Nares and Carole Rectal Updated: 11/30/24 0313 Respiratory Culture and Gram Stain [[id number]] Order Status: Sent Specimen: Sputum, Expectorated Imaging (in last 24 hours): All Images reviewed by me US Renal Complete Result Date: 11/30/2024 No hydronephrosis. CRITICAL RESULT: No. COMMUNICATION: Per this written report. Preliminary report signed by Ashu Fontana MD on 11/30/2024 1:32 PM By electronically signing this report, I, the attending physician, attest that I have personally reviewed the images/data for the above examination(s) and agree with the final edited report. Drafted by Ashu Fontana MD on 11/30/2024 1:26 PM Final report signed by Anna Dee MD on 11/30/2024 2:15 PM VAS US Venous Duplex Lower Extremity Bilateral Result Date: 11/30/2024 Right: Normal study; no evidence of acute DVT is identified. Left: Normal study; no evidence of acute DVT is identified. COMMUNICATION: Per this written report. Preliminary report signed by Anum Hurley RVT on 11/30/2024 7:45 AM By electronically signing this report, I, the attending physician, attest that I have personally reviewed the images/data for the above examination(s) and I agree with thefinal edited report. Drafted by Anum Hurley RVT on 11/30/2024 7:44 AM Final report signed by Laura Meeks MD on 11/30/2024 9:44 AM XR Chest 1 View Result Date: 11/29/2024 Persistent airspace disease within the right upper lung with left basilar atelectasis and possible trace left pleural effusion. Atelectasis versus infection in the right lower lung zone laterally CRITICAL RESULT: No. COMMUNICATION: Per this written report. Preliminary report signed by Tim Ozuna DO on 11/29/2024 7:52 PM By electronically signing this report, I, the attending physician, attestthat I have personally reviewed the images/data for the above examination(s) and agree with the final edited report. Drafted by Tim Ozuna DO on 11/29/2024 7:51 PM Final report signed by Mathew Mathew MD on 11/29/2024 8:[address] Head wo IV Contrast Result Date: 11/29/2024 Similar appearance of small amount of subdural blood beneath left parietal craniotomy flap just left of the vertex. Similar appearance of adjacent left parafalcine subdural hematoma. No new findings.CRITICAL RESULT: No. COMMUNICATION: Per this written report. 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 Seizure - Likely new symptom (maybe had seizure 1 week ago, witnessed seizure 11/29). Apparently Keppra had been stopped postoperatively prior to this event. - Possible etiology: prior surgery, infection, medications, previous TBI, and recent SAH/SDH - CT head: no acute/new findings, similar appearance of small amount of subdural blood - No seizures noted on EEG - Discussed MRI brain findings with Neurosurgery 12/02; recommend continuing Keppra at renal dosing.Again discussed possible meningitis with Neurosurgery (LGF, after seizure). Images reviewed and they do not think source of her infection is meningitis (per resident Monique Dahl, discussed with Dr. Bangura). - Treating possible otitis. Had some drainage from crani incision but no redness and no other obvious sources, so started empiric antibiotics for possible meningitis with ceftriaxone, vancomycin, ampicillin. Will attempt to get LP with Neuro IR this week. LGF overnight External Otitis Headache - No photophobia on exam - CXR negative for infiltrate - No urinary symptoms and admission UA negative for infection. - Started empiric ceftriaxone and vancomycin (limited by JORGE) and added ampicillin today. 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 Discussed with Neurosurgery 12/01. They have evaluated and there are no surgical recommendations. Will continue with plans for continuing OPchemotherapy pending other medical issues. Chronic Conditions or Resolved issues: Diplopia, resolved - No changes on MRI brain to explain this symptom. Atrial flutter/fibrillation - Followed by [facility] cardiology for atrial flutter/fibrillation; history of ablation - Noted to be mostly in NSR on tele; intermittent, short episodes of AF with RVR, asymptomatic. History of bradycardia and hypotension with higher doses of metoprolol. Home dose 50mg BID but here on 25mg BID. OK to give extra dose if needed. - Home meds: lasix, spiralactone, htcz-triamterene, metoprolol, losartan. Per sister, not taking most of these. Started Lasix due to wet cough. Will add back GDMT as BP allows. - Have been holding anticoagulation due to recent SAH/SDH on 11/15. The initial plan was to hold for 2 weeks so she is in the window to restart. Discussed with her, starting therapeutic Lovenox (but holding dose in case of LP need). Type II DM - Last A1c, 08/2024: 6.3% - home regimen: metformin, Januvia - Hospital regimen: Insulin sliding scale Anemia, chronic disease - monitor, transfuse for hgb < 7.0 HTN - meds as above HLD - atorvastatin COPD on 2L NC- no signs of exacerbation, home meds: Breztri, cetirizine, montelukast, continue + duo nebs prn GERD - protonix, tums Chronic hypomagnesemia - Mag oxide Anxiety/Depression - hydroxyzine, fluoxetine Neuropathy/Chronic Pain -gabapentin, dose reduced for JORGE Chemo induced Nausea and Vomiting - Zofran and Compazine IVF: Saline lock. Diet: Adult diet Diet texture: Regular; Carbohydrate restriction: Consistent Carb 2 (80 gm max/meal); Sodium restriction: 2,000 mg Na Last bowel movement: 12/04/24 Lines/Tubes: PIV Venous thromboembolism prophylaxis: SCDs only Code status: Full Code Discharge planning Anticipate home. Spouse 2 months ago so now lives alone. She is planning to stay with her sister short term. Sister confirms. Medically Ready for Discharge:Anticipated in 2-4 Days Noemí Leigh MD [facility] [1] calcium-vitamin D, 1 tablet, Oral, Daily cefTRIAXone, 2 g, Intravenous, q12h cetirizine, 5 mg, Oral, Daily cyanocobalamin, 1,000 mcg, Oral, Daily [Held by provider] enoxaparin, 1 mg/kg, Subcutaneous, q24h ferrous sulfate, 324 mg, Oral, Daily with breakfast FLUoxetine, 40 mg, Oral, Daily furosemide, 40 mg, Oral, Daily gabapentin, 100 mg, Oral, 4x daily insulin lispro, 0-5 Units, Subcutaneous, TID with meals insulin lispro, 0-3 Units, Subcutaneous, Twice at night levETIRAcetam, 500 mg, Oral, BID magnesium oxide, 400 mg, Oral, BID melatonin, 6 mg, Oral, Nightly metoprolol tartrate, 12.5 mg, Oral, BID Tiotropium [place] Monohydrate, 2 puff, Inhalation, Daily And mometasone-formoterol, 2 puff, Inhalation, BID montelukast, 10 mg, Oral, Nightly mupirocin, 1 Application, Topical, BID lvbfopol-ifwrktglm-oahvzvpzbubkqf, 4 drop, Right Ear, 4x daily nystatin, , Topical, BID pantoprazole, 40 mg, Oral, Daily sodium chloride, 10 mL, Intravenous, q12h [2] [3] PRN medications: acetaminophen, calcium carbonate, glucose OR dextrose 10 % OR [id number] % OR glucagon (human recombinant), hydrOXYzine HCl, ipratropium-albuterol, Alum & Mag hydroxide, Zinc Oxide, Cholestyramine, magic mouthwash BLM, polyethylene glycol, prochlorperazine, Insert peripheral IV AND Saline lock IV AND sodium chloride AND sodium chloride * Care Plan - Tootie Sullivan RN - 12/04/2024 9:26 AM EDT Problem: Adult Inpatient Plan of Care Goal: Plan of Care Review Outcome: Ongoing, Progressing Flowsheets (Taken 12/04/2024 0920) Progress: improving Outcome Evaluation: Patient will complete IV antibiotics and return home. Plan of Care Reviewed With: patient family Goal: Patient-Specific Goal (Individualized) Outcome: Ongoing, Progressing Goal: Absence of Hospital-Acquired Illness or Injury Outcome: Ongoing, Progressing Intervention: Identify and Manage Fall Risk Flowsheets (Taken 12/04/2024 1545) Safety Promotion/Fall Prevention: fall prevention program maintained clutter-free environment maintained assistive device/personal items within reach activity supervised lighting adjusted nonskid shoes/slippers when out of bed room organization consistent safety round/check completed toileting scheduled Intervention: Prevent Skin Injury Flowsheets (Taken 12/04/20241926) Body Position: turned right legs elevated heels elevated weight shifting Skin Protection: pulse oximeter probe site changed skin sealant/moisture barrier applied protective footwear used Intervention: Prevent and Manage VTE (Venous Thromboembolism) Risk Flowsheets (Taken 12/04/20241926) VTE Prevention/Management: bilateral SCDs (sequential compression devices) on education provided Intervention: Prevent Infection Flowsheets (Taken 12/04/20241926) Infection Prevention: hand hygiene promoted environmental surveillance performed equipment surfaces disinfected rest/sleep promoted personal protective equipment utilized Goal: Optimal Comfort and Wellbeing Outcome: Ongoing, Progressing Intervention: Monitor Pain and Promote Comfort Flowsheets (Taken 12/04/20241926) Pain Management Interventions: emotional support pain management plan reviewed with patient/caregiver relaxation techniques promoted Intervention: Provide Person-Centered Care Flowsheets (Taken 12/04/20241926) Trust Relationship/Rapport: care explained reassurance provided emotional support provided empathic listening provided questions answered questions encouraged thoughts/feelings acknowledged choices provided Goal: Readiness for Transition of Care Outcome: Ongoing, Progressing Intervention: Mutually Develop Transition Plan Flowsheets (Taken 12/04/20241926) Equipment Currently Used at Home: commode chair glucometer pulse oximeter walker, rollator oxygen Current Outpatient/Agency/Support Group: homecare agency Readmission Within the Last 30 Days: previous discharge plan unsuccessful Problem: Fluid Volume Excess Goal: Fluid Balance Outcome: Ongoing, Progressing Intervention: Monitor and Manage Hypervolemia Flowsheets (Taken 12/04/20241926) Fluid/Electrolyte Management: fluids provided Skin Protection: pulse oximeter probe site changed skin sealant/moisture barrier applied protective footwear used Problem: Fall Injury Risk Goal: Absence of Fall and Fall-Related Injury Outcome: Ongoing, Progressing Intervention: Identify and Manage Contributors Flowsheets (Taken 12/04/20241926) Medication Review/Management: medications reviewed Self-Care Promotion: independence encouraged BADL personal objects within reach BADL personal routines maintained meal set-up provided Intervention: Promote Injury-Free Environment Flowsheets (Taken 12/04/2024 1545) Safety Promotion/Fall Prevention: fall prevention program maintained clutter-free environment maintained assistive device/personal items within reach activity supervised lighting adjusted nonskid shoes/slippers when out of bed room organization consistent safety round/check completed toileting scheduled Problem: Skin Injury Risk Increased Goal: Skin Health and Integrity Outcome: Ongoing, Progressing Intervention: Optimize Skin Protection Flowsheets (Taken 12/04/20241926) Activity Management: up in chair Pressure Reduction Techniques: weight shift assistance provided Pressure Reduction Devices: positioning supports utilized heel offloading device utilized Skin Protection: pulse oximeter probe site changed skin sealant/moisture barrier applied protective footwear used Head of Bed (HOB) Positioning: HOB at 30 degrees Intervention: Promote and Optimize Oral Intake Flowsheets (Taken 12/04/20241926) Oral Nutrition Promotion: calorie-dense liquids provided rest periods promoted physical activity promoted Nutrition Interventions: diet liberalized meal set-up provided supplemental drinks provided Problem: Infection Goal: Absence of Infection Signs and Symptoms Outcome: Ongoing, Progressing Intervention: Prevent or Manage Infection Flowsheets (Taken 12/04/20241926) Infection Management: aseptic technique maintained Fever Reduction/Comfort Measures: lightweight clothing lightweight bedding Isolation Precautions: contact precautions maintained * Care Plan - Erma Cary RN - 12/04/2024 6:30 AM EDT Problem: Adult Inpatient Plan of Care Goal: Plan of Care Review Outcome: Ongoing, Progressing Flowsheets Taken 12/04/2024 06 by Erma Cary RN Progress: no change Taken 12/01/2024 07 by Keren Cordoba RN Plan of Care Reviewed With: patient Goal: Patient-Specific Goal (Individualized) Outcome: Ongoing, Progressing Flowsheets (Taken 12/03/20241999) Patient/Family-Specific Goals (Include Timeframe): Patient will remain free from injury this shift. Individualized Care Needs: Safety Anxieties, Fears or Concerns: Prognosis Goal: Absence of Hospital-Acquired Illness or Injury Outcome: Ongoing, Progressing Intervention: Identify and Manage Fall Risk Flowsheets (Taken 12/04/2024 06) Safety Promotion/Fall Prevention: activity supervised assistive device/personal items within reach lighting adjusted clutter-free environment maintained fall prevention program maintained room organization consistent nonskid shoes/slippers when out of bed toileting scheduled safety round/check completed Problem: Fluid Volume Excess Goal: Fluid Balance Outcome: Ongoing, Progressing Intervention: Monitor and Manage Hypervolemia Flowsheets (Taken 12/04/2024626) Fluid/Electrolyte Management: fluids provided fluids adjusted Skin Protection: protective footwear used incontinence pads utilized pulse oximeter probe site changed Problem: Fall Injury Risk Goal: Absence of Fall and Fall-Related Injury Outcome: Ongoing, Progressing Intervention: Promote Injury-Free Environment Flowsheets (Taken 12/04/2024626) Safety Promotion/Fall Prevention: activity supervised assistive device/personal items within reach lighting adjusted clutter-free environment maintained fall prevention program maintained room organization consistent nonskid shoes/slippers when out of bed toileting scheduled safety round/check completed Problem: Skin Injury Risk Increased Goal: Skin Health and Integrity Outcome: Ongoing, Progressing Intervention: Optimize Skin Protection Flowsheets (Taken 12/04/2024626) Activity Management: activity adjusted per tolerance activity encouraged Pressure Reduction Techniques: frequent weight shift encouraged heels elevated off bed Pressure Reduction Devices: positioning supports utilized Skin Protection: protective footwear used incontinence pads utilized pulse oximeter probe site changed Head of Bed (HOB) Positioning: HOB at 30-45 degrees Problem: Infection Goal: Absence of Infection Signs and Symptoms Outcome: Ongoing, Progressing Intervention: Prevent or Manage Infection Flowsheets (Taken 12/04/2024626) Infection Management: aseptic technique maintained Fever Reduction/Comfort Measures: lightweight bedding lightweight clothing Isolation Precautions: precautions maintained contact * Care Plan - Pepper Madden - 12/03/2024 7:53 PM EDT Problem: Adult Inpatient Plan of Care Goal: Plan of Care Review Outcome: Ongoing, Progressing Goal: Patient-Specific Goal (Individualized) Outcome: Ongoing, Progressing Goal: Absence of Hospital-Acquired Illness or Injury Outcome: Ongoing, Progressing Intervention: Identify and Manage Fall Risk Flowsheets (Taken 12/03/2024 0800) Safety Promotion/Fall Prevention: activity supervised fall prevention program maintained assistive device/personal items within reach clutter-free environment maintained lighting adjusted mobility aid in reach nonskid shoes/slippers when out of bed room organization consistent safety round/check completed Intervention: Prevent Skin Injury Flowsheets (Taken 12/03/2024799) Skin Protection: incontinence pads utilized Intervention: Prevent and Manage VTE (Venous Thromboembolism) Risk Flowsheets (Taken 12/03/2024799) VTE Prevention/Management: SCDs (sequential compression devices) on Intervention: Prevent Infection Flowsheets (Taken 12/03/2024799) Infection Prevention: cohorting utilized equipment surfaces disinfected personal protective equipment utilized Goal: Optimal Comfort and Wellbeing Outcome: Ongoing, Progressing Intervention: Monitor Pain and Promote Comfort Flowsheets (Taken 12/03/2024799) Pain Management Interventions: pillow support provided Intervention: Provide Person-Centered Care Flowsheets (Taken 12/03/2024799) Trust Relationship/Rapport: care explained emotional support provided Goal: Readiness for Transition of Care Outcome: Ongoing, Progressing Intervention: Mutually Develop Transition Plan Flowsheets (Taken 12/03/20241944) Discharge Coordination/Progress: per case management Equipment Currently Used at Home: oxygen Concerns to be Addressed: adjustment to diagnosis/illness basic needs care coordination/care conferences Readmission Within the Last 30 Days: no previous admission in last 30 days Patient/Family Anticipates Transition to: home with family Problem: Fluid Volume Excess Goal: Fluid Balance Outcome: Ongoing, Progressing Intervention: Monitor and Manage Hypervolemia Flowsheets (Taken 12/03/2024799) Fluid/Electrolyte Management: fluids adjusted Skin Protection: incontinence pads utilized Problem: Fall Injury Risk Goal: Absence of Fall and Fall-Related Injury Outcome: Ongoing, Progressing Intervention: Identify and Manage Contributors Flowsheets (Taken 12/03/2024799) Medication Review/Management: medications reviewed Self-Care Promotion: independence encouraged Intervention: Promote Injury-Free Environment Flowsheets (Taken 12/03/2024799) Safety Promotion/Fall Prevention: activity supervised fall prevention program maintained assistive device/personal items within reach clutter-free environment maintained lighting adjusted mobility aid in reach nonskid shoes/slippers when out of bed room organization consistent safety round/check completed Problem: Skin Injury Risk Increased Goal: Skin Health and Integrity Outcome: Ongoing, Progressing Intervention: Optimize Skin Protection Flowsheets (Taken 12/03/2024799) Pressure Reduction Techniques: heels elevated off bed Pressure Reduction Devices: chair cushion utilized Skin Protection: incontinence pads utilized Intervention: Promote and Optimize Oral Intake Flowsheets (Taken 12/03/2024 08) Oral Nutrition Promotion: rest periods promoted Nutrition Interventions: food preferences provided Problem: Infection Goal: Absence of Infection Signs and Symptoms Outcome: Ongoing, Progressing Intervention: Prevent or Manage Infection Flowsheets (Taken 12/03/2024 08) Infection Management: aseptic technique maintained Fever Reduction/Comfort Measures: lightweight bedding lightweight clothing * Progress Notes - West Dixon, PharmD - 12/03/2024 3:57 PM EDT Pharmacokinetic Consult - Therapeutic Drug Monitoring HPI and Hospital Course: Teresa Rivera is a 64 y.o. female presenting with meningitis who was started on IV vancomycin for . Pharmacy was consulted for management of vancomycin. Dose History: Recent Vancomycin Admin No antibiotic orders with administrations found. Wt Readings from Last 1 Encounters: 12/03/24 115 kg (254 lb 3.1 oz) BMI: 39.81 kg/m?? Creatinine, Plasma (mg/dL) Date/Time Value 12/03/2024 0030 2.64 (H) 12/02/2024 0344 2.82 (H) 12/01/2024 0502 3.00 (H) Estimated Creatinine Clearance: 28.2 mL/min (A) (by C-G formula based on SCr of 2.64 mg/dL (H)). Assessment Estimated kinetic evaluation utilizing population kinetics: Vancomycin Dosing Method Vancomycin Dose Calculation Method Area under the curve (AUC) dosing General Parameters for Vancomycin Dose Calculation (AUC) Dosing Weight 115 kg (253 lb 8.5 oz) Vancomycin clearance calculation method Matzke equation Administer over 60 minutes AUC 24 hr goal (mg-hr/L) 500 mg??hr/L Estimated creatinine clearance (mL/min 28.2 mL/min Matzke Equation Parameters for Vancomycin Dose Calculation (AUC) Estimated vancomycin Vd (0.7 L/kg typically) 0.7 L/kg (Typical) Crass Equation Parameters for Vancomycin Dose Calculation (AUC) Serum creatinine (mg/dL) 2.64 mg/dL Recommended Initial Vancomycin Dosing Estimated Ke (hr ^-1) 0.0278 hr^-1 Estimated half-life (hr) 24.93 hr Estimated vancomycin Cl (L/hr) 2.238 Recommended TDD (mg) 1119 Plan 1. Recommend loading dose of 2500 mg IV once 2. Recommend initiating vancomycin 1250 mg IV q24h for a total daily dose of 1250 mg and predicted AUC of 559 mg??hr/L. 3. Monitor renal function (Scr and BUN) and UOP at least 2-3x/week or more frequently if renal function changes. 4. Obtain vancomycin levels around the 4th dose of new regimen if therapy is to be continued. Pharmacy will continue to follow. Submitted by: West Dixon, PharmD 12/03/2024 3:56 PM * Progress Notes - Noemí Leigh MD - 12/03/2024 2:49 PM EDT Daily Progress Note Chief Complaint Right ear pain Subjective Noted to have a LGF overnight to 100.6. Blood cultures drawn. Called by RN this AM for episodes of AF with RVR, nonsustained. Today, sister at bedside. Concerned about right ear pain. Patient says she's having right ear pain with headache (points near her craniotomy scar). The episodes are severe but only last seconds. Last Recorded Vitals Blood pressure 110/72, pulse 80, temperature 37.4 ??C (99.4 ??F), temperature source Oral, resp. rate 20, height 1.702 m (5' 7 ), weight 115 kg (254 lb 3.1 oz), SpO2 97%. Physical Exam Awake and alert. Oriented x 3. HEENT: PERRL. Mouth clear. Neck supple. Right ear canal with cerumen obstructing half of view of TM. TM is slightly red, no bulging noted. Chest: Diminished breath sounds bilaterally with fine crackles. Wet sounding cough. Heart: RRR no RMG Abd: Soft, NT, ND, BS+ normally active. Ext: 1+ edema in lower extremities Labs (in last 18 hours): CBC WBC 8.11 Hb 7.8 (L) Plt 239 Hct 25.8 (L) ANC ?? INR ??, PTT ??, Anti-Xa ?? BMP Na 141 Cl 103 BUN 16 Glu 148 (H) K 3.6 Co2 27 Cr 2.64 (H) Ca 8.5 (L) iCa ?? Mg ??, Phos ?? Lactate ?? LFT AST ?? AlkPhos ?? T Prot ?? ALK ?? Bili ?? Alb ?? D.Bili ?? Microbiology: Results Procedure Component Value Units Date/Time Blood Culture (Aerobic/Anaerobet Set) [[id number]] Collected: 11/30/24 0232 Order Status: Completed Specimen: Blood, Venous Updated: 11/30/24524 Culture Culture in lab Streptococcus pneumoniae and Legionella Urinary Antigen [[id number]] (Normal) Collected: 11/30/24208 Order Status: Completed Specimen: Urine, Clean Catch Updated: 11/30/24517 Legionella pneumophila serogroup 1 Antigen Result (Urine) Negative Streptococcus pneumoniae Antigen Result (Urine) Negative Nasopharyngeal Respiratory Panel [[id number]] (Normal) Collected: 11/30/24208 Order Status: Completed Specimen: Swab from Nasopharynx Updated: 11/30/24 050 Nasopharyngeal Respiratory PCR Interpretation Not Detected for all analytes Narrative: This assay can detect Adenovirus, Coronavirus, Human [...] Respiratory PCR Panel is performed using the [employer] instrument. This test is FDA approved for use with Nasopharyngeal swabs only. This test is used for clinical purposes. It should not be regarded as investigational or for research. The [facility] is certified under the Clinical Laboratory Improvement Amendments of 1988 (CLIA-88) as qualified to perform high complexity clinical laboratory testing. Blood Culture (Aerobic/Anaerobet Set) [[id number]] Collected: 11/30/24208 Order Status: Completed Specimen: Blood, Venous Updated: 11/30/24 050 Culture Culture in lab SARS CoV-2/COVID-19 by PCR [[id number]] (Normal) Collected: 11/30/24208 Order Status: Completed Specimen: Swab from Nasopharynx Updated: 11/30/24 0402 SARS CoV-2/COVID-19 RNA PCR Result Not Detected Narrative: This test is FDA approved for use [...] clinical signs and symptoms consistent with COVID-19. Multi Drug Resistance Test [[id number]] Collected: 11/30/24208 Order Status: Sent Specimen: Swab from Nares and Carole Rectal Updated: 11/30/24 0313 Respiratory Culture and Gram Stain [[id number]] Order Status: Sent Specimen: Sputum, Expectorated Imaging (in last 24 hours): All Images reviewed by ky US Renal Complete Result Date: 11/30/2024 No hydronephrosis. CRITICAL RESULT: No. COMMUNICATION: Per this written report. Preliminary report signed by Ashu Fontana MD on 11/30/2024 1:32 PM By electronically signing this report, I, the attending physician, attest that I have personally reviewed the images/data for the above examination(s) and agree with the final edited report. Drafted by Ashu Fontana MD on 11/30/2024 1:26 PM Final report signed by Anna Dee MD on 11/30/2024 2:15 PM VAS US Venous Duplex Lower Extremity Bilateral Result Date: 11/30/2024 Right: Normal study; no evidence of acute DVT is identified. Left: Normal study; no evidence of acute DVT is identified. COMMUNICATION: Per this written report. Preliminary report signed by Anum Hurley RVT on 11/30/2024 7:45 AM By electronically signing this report, I, the attending physician, attest that I have personally reviewed the images/data for the above examination(s) and I agree with thefinal edited report. Drafted by Anum Hurley RVT on 11/30/2024 7:44 AM Final report signed by Laura Meeks MD on 11/30/2024 9:44 AM XR Chest 1 View Result Date: 11/29/2024 Persistent airspace disease within the right upper lung with left basilar atelectasis and possible trace left pleural effusion. Atelectasis versus infection in the right lower lung zone laterally CRITICAL RESULT: No. COMMUNICATION: Per this written report. Preliminary report signed by Tim Ozuna DO on 11/29/2024 7:52 PM By electronically signing this report, I, the attending physician, attestthat I have personally reviewed the images/data for the above examination(s) and agree with the final edited report. Drafted by Tim Ozuna DO on 11/29/2024 7:51 PM Final report signed by Mathew Mathew MD on 11/29/2024 8:[address] Head wo IV Contrast Result Date: 11/29/2024 Similar appearance of small amount of subdural blood beneath left parietal craniotomy flap just left of the vertex. Similar appearance of adjacent left parafalcine subdural hematoma. No new findings.CRITICAL RESULT: No. COMMUNICATION: Per this written report. 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 Seizure - Likely new symptom (maybe had seizure 1 week ago, witnessed seizure 11/29). Apparently Keppra had been stopped postoperatively prior to this event. - Possible etiology: prior surgery, infection, medications, previous TBI, and recent SAH/SDH - CT head: no acute/new findings, similar appearance of small amount of subdural blood - No seizures noted on EEG - Discussed MRI brain findings with Neurosurgery 12/02; recommend continuing Keppra at renal dosing.No intervention recommended. LGF overnight External Otitis Headache - No photophobia on exam - CXR negative for infiltrate - Wonder if this fever is due to a [employer] infection? MRI 12/01 notes: unchanged abundant dural thickening and enhancement subjacent to the craniotomy site .... A superimposed infectious process could beconsidered in the appropriate clinical setting. - Will ask if NS would be willing to do LP ([facility] LP is currently short staffed and not available on weekends). Due to her size, I will not be able to do an LP bedside. - Started empiric ceftriaxone and vancomycin (limited by JORGE). - Examined right TM; no budging TM noted, no air-fluid levels but exam limited by cerumen. - Started Cortisporin gtt QID right ear 12/01, OK to continue - Other etiology for fever: PNA (CXR negative), urine (no urinary symptoms and negative UA on admission). 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 - MRI brain with evidence of recurrent vs residual tumor. Discussed with Neurosurgery 12/01. They have evaluated and there are no surgical recommendations. Will continue with plans for continuing OPchemotherapy pending other medical issues. Chronic Conditions or Resolved issues: Diplopia, resolved - No changes on MRI brain to explain this symptom. Atrial flutter/fibrillation - Followed by [facility] cardiology for atrial flutter/fibrillation; history of ablation - Noted to be mostly in NSR on tele; intermittent, short episodes of AF with RVR. History of bradycardia and hypotension with higher doses of metoprolol. Home dose 50mg BID but here on 25mg BID. OK to give extra dose if needed. - Home meds: lasix, spiralactone, htcz-triamterene, metoprolol, losartan; holding diuretics and losartan but starting to hear crackles on exam, so may need to restart tomorrow 12/04. - Have been holding anticoagulation due to recent SAH/SDH on 11/15. The initial plan was to hold for 2 weeks so she is in the window to restart. Discussed with her, starting therapeutic Lovenox (but holding dose today in case of LP need). Type II DM - Last A1c, 08/2024: 6.3 - home regimen: metformin, Januvia - Hospital regimen: Insulin sliding scale Anemia, chronic disease - monitor, transfuse for hgb < 7.0 HTN - meds as above HLD - atorvastatin COPD on 2L NC- no signs of exacerbation, home meds: Breztri, cetirizine, montelukast, continue + duo nebs prn GERD - protonix, tums Chronic hypomagnesemia - Mag oxide Anxiety/Depression - hydroxyzine, fluoxetine Neuropathy/Chronic Pain -gabapentin, dose reduced for JORGE Chemo induced Nausea and Vomiting - Zofran and Compazine IVF: Saline lock. Diet: Adult diet Diet texture: Regular; Carbohydrate restriction: Consistent Carb 2 (80 gm max/meal); Sodium restriction: 2,000 mg Na Last bowel movement: 12/01/24 Lines/Tubes: PIV Venous thromboembolism prophylaxis: SCDs only Code status: Full Code Discharge planning Anticipate home. Spouse 2 months ago so now lives alone. She is planning to stay with her sister short term. Sister confirms. Medically Ready for Discharge:Anticipated in 2-4 Days Noemí Leigh MD [facility] [1] calcium-vitamin D, 1 tablet, Oral, Daily cetirizine, 5 mg, Oral, Daily cyanocobalamin, 1,000 mcg, Oral, Daily enoxaparin, 1 mg/kg, Subcutaneous, q24h ferrous sulfate, 324 mg, Oral, Daily with breakfast FLUoxetine, 40 mg, Oral, Daily gabapentin, 100 mg, Oral, 4x daily insulin lispro, 0-5 Units, Subcutaneous, TID with meals insulin lispro, 0-3 Units, Subcutaneous, Twice at night levETIRAcetam, 500 mg, Oral, BID magnesium oxide, 400 mg, Oral, BID melatonin, 6 mg, Oral, Nightly metoprolol tartrate, 12.5 mg, Oral, BID Tiotropium [place] Monohydrate, 2 puff, Inhalation, Daily And mometasone-formoterol, 2 puff, Inhalation, BID montelukast, 10 mg, Oral, Nightly mupirocin, 1 Application, Topical, BID vgovqtvf-ytkoqtgst-dggdmqapwvsqpj, 3 drop, Right Ear, q8h BRIDGETTE nystatin, , Topical, BID pantoprazole, 40 mg, Oral, Daily piperacillin-tazobactam, 4.5 g, Intravenous, q8h sodium chloride, 10 mL, Intravenous, q12h [2] [3] PRN medications: acetaminophen, calcium carbonate, glucose OR dextrose 10 % OR iwqqlerq38 % OR glucagon (human recombinant), hydrOXYzine HCl, ipratropium-albuterol, Alum & Mag hydroxide, Zinc Oxide, Cholestyramine, magic mouthwash BLM, metoprolol tartrate, polyethylene glycol, prochlorperazine, Insert peripheral IV AND Saline lock IV AND sodium chloride AND sodiumchloride * Consults - Rosalinda Colorado RD - 12/03/2024 8:40 AM EDTAssociated Order(s): IP CONSULT TO NUTRITION SERVICES Adult Nutrition Evaluation Note Teresa Rivera 64 y.o. female CSN: [id number] Room/Bed 120/120A Nutrition evaluation type: assessment Reason for evaluation: nurse consult Hospital course: 64 y.o. F presenting after a seizure in the [facility]. Pt found to have anemia, JORGE, hypomagnesium, and elevated lactate. Past medical/ surgical history: Past Medical History[1] Surgical History[2] Social history: Social History[3] Additional comments: 12/03: Wt loss x months, not considered significant at this time. Pt at risk of malnutrition. Will add Boost GC BID. Encourage adequate po intake Vitals and Basic Assessment: BP: 129/54 Temp: 37.1 ??C (98.7 ??F) Oxygen Therapy: Supplemental oxygen O2 Delivery Method: Nasal cannula Tk Coma Scale Score: 15 Rosendo Scale Score: 20 Most Recent BM Date: 12/01/24 GI Symptoms: None Edema: Generalized Allergies: NKFA Medications: Current Scheduled Medications[4] Labs: Lab Results Component Value Date GLUCOSE 148 (H) 12/03/2024 CALCIUM 8.5 (L) 12/03/2024 NA 141 12/03/2024 K 3.6 12/03/2024 CO2 27 12/03/2024 CL 103 12/03/2024 BUN 16 12/03/2024 CREATININE 2.64 (H) 12/03/2024 PHOS 3.7 11/30/2024 MG 2.2 11/30/2024 HGBA1C 6.3 (H) 09/02/2024 Anthropometrics: Height: 170.2 cm (5' 7 ) Weight: 115 kg (254 lb 3.1 oz) BMI (Calculated): 39.8 Weight Evaluation: Obese-Class 2 (BMI 35-39.9) Weight History: 20# (7.2%) wt loss x 2 months [place] Body Weight (kg): 61.6 Percent [place] Body Weight: 186 Adjusted Body Weight (kg): 74 Wt Readings from Last 20 Encounters: 12/03/24 115 kg (254 lb 3.1 oz) 12/01/24 114 kg (251 lb) 11/29/24 121 kg (267 lb 6.7 oz) 11/29/24 122 kg (268 lb 11.9 oz) 11/21/24 117 kg (257 lb 8 oz) 11/15/24 120 kg (263 lb 7.2 oz) 11/10/24 118 kg (259 lb 7.7 oz) 11/09/24 118 kg (260 lb 12.9 oz) 11/08/24 118 kg (259 lb 11.2 oz) 11/08/24 117 kg (257 lb 4.4 oz) 11/01/24 116 kg (255 lb 15.3 oz) 10/27/24 114 kg (250 lb 14.1 oz) 10/25/24 119 kg (262 lb) 10/12/24 119 kg (262 lb) 10/12/24 119 kg (262 lb 5.6 oz) 10/06/24 119 kg (262 lb 12.6 oz) 10/05/24 118 kg (261 lb 0.4 oz) 10/04/24 117 kg (257 lb 15 oz) 10/04/24 117 kg (258 lb 13.1 oz) 09/26/24 124 kg (274 lb 7.6 oz) 20# (7.2%) wt loss x 2 months (not significant) Estimated Needs: Metabolic Cart Study Results: Current Nutrition Intake: Diet Supplements: None Diet Order: Adult Diet Diet Texture: Regular Adult Carbohydrate Restriction: Consistent CHO 2 ([id number] Luis, 80 g/meal) Adult Sodium Restriction: 2,000 mg Na Percent Meals Eaten (%): 50% x 1 meal Diet Experience and Nutrition History: Diet Education Provided: Will monitor Pertinent home medications: Calcium carb vitamin D, ferrous sulfate, lasix, mag- ox, metformin, zofran, probiotic, compazine, januvia, vitamin B12, jardiance, lantus, aldactone Baptism needs: -- Nutrition Focused Physical Exam: Unable to Complete Exam: Weekend coverage Physical exam performed on (date): -- Weight Loss: 20# (7.2%) wt loss x 2 months Assessment of Malnutrition: Malnutrition Identified: Additional Information Needed Nutrition Problem: Predicted suboptimal energy intake related to inability to consume adequate nutrients as evidenced by 20# wt loss x 2 months, consuming 50% or less of meals so far. Status of Nutrition Diagnosis: New Nutrition Interventions and Recommendations: .- Continue rCCD/2g Na diet as tolerated - Boost GC BID - Recommend obtaining weight weekly - Please document meal intake in flowsheet Nutrition Monitoring and Goals: - Will monitor PO intake/EN infusion, weight, skin, labs, nutrition status - Pt will maintain body weight throughout hospital admission - NFPE on follow up Acuity Level: [address] [1] Past Medical History: Diagnosis Date A-fib (CMS/HCC) Anxiety Brain tumor (CMS/HCC) Chemotherapy-induced nausea and vomiting 08/28/2023 COPD (chronic obstructive pulmonary disease) (CMS/HCC) Depression Heart failure Hyperlipidemia Hypertension Osteoarthritis Pneumonia Small cell lung cancer (CMS/HCC) Type 2 diabetes mellitus [2] Past Surgical History: Procedure Laterality Date BRAIN SURGERY TUBAL LIGATION N/A Tubal Ligation from [facility] TYMPANOSTOMY TUBE PLACEMENT N/A Ear Surgery Eustachian Tube from [facility] [3] Social History Tobacco Use Smoking status: Former Current packs/day: 0.00 Average packs/day: 1.5 packs/day for 48.4 years (72.6 ttl pk-yrs) Types: Cigarettes Start date: 1975 Quit date: 10/17/2023 Years since quittin.1 Passive exposure: Past Smokeless tobacco: Never Vaping Use Vaping status: Never Used Substance Use Topics Alcohol use: Never Drug use: Never [4] calcium-vitamin D, 1 tablet, Oral, Daily cetirizine, 5 mg, Oral, Daily cyanocobalamin, 1,000 mcg, Oral, Daily ferrous sulfate, 324 mg, Oral, Daily with breakfast FLUoxetine, 40 mg, Oral, Daily gabapentin, 100 mg, Oral, 4x daily insulin lispro, 0-5 Units, Subcutaneous, TID with meals insulin lispro, 0-3 Units, Subcutaneous, Twice at night levETIRAcetam, 500 mg, Oral, BID magnesium oxide, 400 mg, Oral, BID melatonin, 6 mg, Oral, Nightly metoprolol tartrate, 12.5 mg, Oral, BID Tiotropium [place] Monohydrate, 2 puff, Inhalation, Daily AND mometasone- formoterol, 2 puff, Inhalation, BID montelukast, 10 mg, Oral, Nightly mupirocin, 1 Application, Topical, BID upmlifns-rutktwasr-eqssgvnceqfilu, 3 drop, Right Ear, q8h BRIDGETTE nystatin, , Topical, BID pantoprazole, 40 mg, Oral, Daily piperacillin-tazobactam, 4.5 g, Intravenous, q8h [Held by provider] rivaroxaban, 20 mg, Oral, Daily with dinner Insert peripheral IV, , , Once AND Saline lock IV, , , Once AND sodium chloride, 10 mL, Intravenous, q12h AND sodium chloride, 10 mL, Intravenous, PRN * Care Plan - Nahomi Mittal RN - 12/03/2024 3:15 AM EDT Problem: Adult Inpatient Plan of Care Goal: Plan of Care Review Outcome: Ongoing, Progressing Flowsheets (Taken 12/02/20242029) Progress: no change Goal: Patient-Specific Goal (Individualized) Outcome: Ongoing, Progressing Flowsheets (Taken 12/02/20242029) Patient/Family-Specific Goals (Include Timeframe): patient will remain free from injury throughout shift Individualized Care Needs: safety Anxieties, Fears or Concerns: denies Goal: Absence of Hospital-Acquired Illness or Injury Outcome: Ongoing, Progressing Intervention: Identify and Manage Fall Risk Flowsheets (Taken 12/03/2024 0200) Safety Promotion/Fall Prevention: safety round/check completed Intervention: Prevent Skin Injury Flowsheets Taken 12/03/2024 0314 Skin Protection: incontinence pads utilized Taken 12/03/2024 0200 Body Position: weight shifting Intervention: Prevent and Manage VTE (Venous Thromboembolism) Risk Flowsheets (Taken 12/03/2024 0000) VTE Prevention/Management: bilateral SCDs (sequential compression devices) on Intervention: Prevent Infection Flowsheets (Taken 12/02/2024 0937 by Janette Yoon, RN) Infection Prevention: equipment surfaces disinfected hand hygiene promoted rest/sleep promoted single patient room provided Goal: Optimal Comfort and Wellbeing Outcome: Ongoing, Progressing Intervention: Monitor Pain and Promote Comfort Flowsheets (Taken 12/02/2024 1655 by Quan Chavez) Pain Management Interventions: position adjusted pillow support provided Intervention: Provide Person-Centered Care Flowsheets (Taken 12/02/2024 0937 by Janette Yoon RN) Trust Relationship/Rapport: care explained questions answered Goal: Readiness for Transition of Care Outcome: Ongoing, Progressing Intervention: Mutually Develop Transition Plan Flowsheets (Taken 12/03/2024 0314) Patient/Family Anticipates Transition to: home with family Problem: Fluid Volume Excess Goal: Fluid Balance Outcome: Ongoing, Progressing Intervention: Monitor and Manage Hypervolemia Flowsheets Taken 12/03/2024 0314 by Nahomi Mittal RN Skin Protection: incontinence pads utilized Taken 11/30/2024 0853 by Marie Smyth RN Fluid/Electrolyte Management: fluids adjusted Problem: Fall Injury Risk Goal: Absence of Fall and Fall-Related Injury Outcome: Ongoing, Progressing Intervention: Identify and Manage Contributors Flowsheets Taken 12/03/2024 0314 by Nahomi Mittal RN Medication Review/Management: medications reviewed Taken 12/02/2024 0937 by Janette Yoon RN Self-Care Promotion: independence encouraged BADL personal objects within reach Intervention: Promote Injury-Free Environment Flowsheets (Taken 12/03/2024 0200) Safety Promotion/Fall Prevention: safety round/check completed Problem: Skin Injury Risk Increased Goal: Skin Health and Integrity Outcome: Ongoing, Progressing Intervention: Optimize Skin Protection Flowsheets Taken 12/03/2024 0314 Activity Management: activity adjusted per tolerance Pressure Reduction Techniques: heels elevated off bed Skin Protection: incontinence pads utilized Taken 12/03/2024 0200 Head of Bed (HOB) Positioning: HOB elevated Intervention: Promote and Optimize Oral Intake Flowsheets (Taken 12/03/2024 0314) Oral Nutrition Promotion: rest periods promoted Nutrition Interventions: diet adjusted * Progress Notes - Noemí Leigh MD - 12/02/2024 5:16 PM EDT Daily Progress Note Chief Complaint Weakness Subjective Called by RN this AM for intermittent AF with RVR. Episodes seemed short lived and she would convert back to NSR with rate controlled. No intervention. No new complaints. Sister Era in room. No diplopia today. Overall feels weak and is asking to walkmore. Now that sister is here, potentially could walk with assist. She also says her right ear is hurting. She had been started on ear drops prior to hospitalization and is asking for some now. Last Recorded Vitals Blood pressure 105/67, pulse 83, temperature 36.6 ??C (97.8 ??F), temperature source Oral, resp. rate 20, height 1.702 m (5' 7 ), weight 121 kg (267 lb 6.7 oz), SpO2 97%. Physical Exam Awake and alert. Oriented x 3. HEENT: PERRL. Mouth clear. Neck supple. Right ear canal with cerumen obstructing half of view of TM. TM is slightly red, no bulging noted. Chest: Diminished breath sounds bilaterally. Wet sounding cough. Heart: RRR no RMG Abd: Soft, NT, ND, BS+ normally active. Ext: 1+ edema in lower extremities Labs (in last 18 hours): CBC WBC ?? Hb ?? Plt ?? Hct ?? ANC ?? INR ??, PTT ??, Anti-Xa ?? BMP Na 142 Cl 104 BUN 18 Glu 161 (H) K 4.1 Co2 27 Cr 2.82 (H) Ca 8.7 (L) iCa ?? Mg ??, Phos ?? Lactate ?? LFT AST ?? AlkPhos ?? T Prot ?? ALK ?? Bili ?? Alb ?? D.Bili ?? Microbiology: Results Procedure Component Value Units Date/Time Blood Culture (Aerobic/Anaerobet Set) [[id number]] Collected: 11/30/24 0232 Order Status: Completed Specimen: Blood, Venous Updated: 11/30/24524 Culture Culture in lab Streptococcus pneumoniae and Legionella Urinary Antigen [[id number]] (Normal) Collected: 11/30/24208 Order Status: Completed Specimen: Urine, Clean Catch Updated: 11/30/2418 Legionella pneumophila serogroup 1 Antigen Result (Urine) Negative Streptococcus pneumoniae Antigen Result (Urine) Negative Nasopharyngeal Respiratory Panel [[id number]] (Normal) Collected: 11/30/24208 Order Status: Completed Specimen: Swab from Nasopharynx Updated: 11/30/24 0505 Nasopharyngeal Respiratory PCR Interpretation Not Detected for all analytes Narrative: This assay can detect Adenovirus, Coronavirus, Human [...] Respiratory PCR Panel is performed using the [employer] instrument. This test is FDA approved for use with Nasopharyngeal swabs only. This test is used for clinical purposes. It should not be regarded as investigational or for research. The [facility] is certified under the Clinical Laboratory Improvement Amendments of 1988 (CLIA-88) as qualified to perform high complexity clinical laboratory testing. Blood Culture (Aerobic/Anaerobet Set) [[id number]] Collected: 11/30/24208 Order Status: Completed Specimen: Blood, Venous Updated: 11/30/24 0501 Culture Culture in lab SARS CoV-2/COVID-19 by PCR [[id number]] (Normal) Collected: 11/30/24208 Order Status: Completed Specimen: Swab from Nasopharynx Updated: 11/30/24 0402 SARS CoV-2/COVID-19 RNA PCR Result Not Detected Narrative: This test is FDA approved for use [...] clinical signs and symptoms consistent with COVID-19. Multi Drug Resistance Test [[id number]] Collected: 11/30/24 0209 Order Status: Sent Specimen: Swab from Nares and Carole Rectal Updated: 11/30/24312 Respiratory Culture and Gram Stain [[id number]] Order Status: Sent Specimen: Sputum, Expectorated Imaging (in last 24 hours): All Images reviewed by ky US Renal Complete Result Date: 11/30/2024 No hydronephrosis. CRITICAL RESULT: No. COMMUNICATION: Per this written report. Preliminary report signed by Ashu Fontana MD on 11/30/2024 1:32 PM By electronically signing this report, I, the attending physician, attest that I have personally reviewed the images/data for the above examination(s) and agree with the final edited report. Drafted by Ashu Fontana MD on 11/30/2024 1:26 PM Final report signed by Anna Dee MD on 11/30/2024 2:15 PM VAS US Venous Duplex Lower Extremity Bilateral Result Date: 11/30/2024 Right: Normal study; no evidence of acute DVT is identified. Left: Normal study; no evidence of acute DVT is identified. COMMUNICATION: Per this written report. Preliminary report signed by Anum Hurley RVT on 11/30/2024 7:45 AM By electronically signing this report, I, the attending physician, attest that I have personally reviewed the images/data for the above examination(s) and I agree with thefinal edited report. Drafted by Anum Hurley RVT on 11/30/2024 7:44 AM Final report signed by Laura Meeks MD on 11/30/2024 9:44 AM XR Chest 1 View Result Date: 11/29/2024 Persistent airspace disease within the right upper lung with left basilar atelectasis and possible trace left pleural effusion. Atelectasis versus infection in the right lower lung zone laterally CRITICAL RESULT: No. COMMUNICATION: Per this written report. Preliminary report signed by Tim Ozuna DO on 11/29/2024 7:52 PM By electronically signing this report, I, the attending physician, attestthat I have personally reviewed the images/data for the above examination(s) and agree with the final edited report. Drafted by Tim Ozuna DO on 11/29/2024 7:51 PM Final report signed by Mathew Mathew MD on 11/29/2024 8:[address] Head wo IV Contrast Result Date: 11/29/2024 Similar appearance of small amount of subdural blood beneath left parietal craniotomy flap just left of the vertex. Similar appearance of adjacent left parafalcine subdural hematoma. No new findings.CRITICAL RESULT: No. COMMUNICATION: Per this written report. Drafted by Abhilash Castorena MD on 11/29/2024 8:39 PM Final report signed by Abhilash Castorena MD on 11/29/2024 8:45 PM EKG None new Medications Current Scheduled Medications[1] Current Continuous Medications[2] Current PRN Medications[3] Medical Decision Making: Assessment/Plan Teresa Rivera is a 64 yof with SCLCA with metastasis to brain s/p craniotomy and recent SAH/SDH who was transferred to ED after having a seizure in [facility] infusion clinic. Seizure - Likely new symptom (maybe had seizure 1 week ago, witnessed seizure 11/29). - Possible etiology: prior surgery, infection, medications, previous TBI, and recent SAH/SDH - CT head: no acute/new findings, similar appearance of small amount of subdural blood - No seizures noted on EEG - Discussed MRI brain findings with Neurosurgery today; recommend continuing Keppra at renal dosing. No intervention recommended. Acute Kidney Injury - Baseline creatinine 0.61-0.94; peaked at 3, trending down to 2.8 today - CK normal - Renal US without hydronephrosis - Making adequate urine - Etiology remains unclear Stage III SCLC w/ mets to brain s/p craniotomy and WBRT - Chemo: Carboplatin/Etopside daily, Atezolizumab q21 days - last chemo: 11/10/24 - Radiation Therapy: 10/24/24-11/07/24 - Discussed with Med Onc on rounds today. - MRI brain with evidence of recurrent vs residual tumor. Discussed with Neurosurgery today. Theyhave evaluated and there are no surgical recommendations. Will continue with plans for continuing OP chemotherapy. Will need to move up appointment currently scheduled 12/20/24. Chronic Conditions or Resolved issues: Diplopia, resolved - No changes on MRI brain to explain this symptom. External Otitis, Cortisporin gtt TID Atrial flutter/fibrillation - Followed by cardiology for atrial flutter/fibrillation; history of ablation - Noted to be mostly in NSR on tele; intermittent, short episodes of AF with RVR. History of bradycardia and hypotension with higher doses of metoprolol. Home dose 50mg BID but here on 12.5mg BID. OKto give extra dose if needed. - Home meds: lasix, spiralactone, htcz-triamterene, metoprolol, losartan; holding diuretics and losartan - Holding anticoagulation due to recent SAH/SDH on 11/15. The initial plan was to hold for 2 weeks soshe is in the window to restart. We now have evidence of stability of bleeding on imaging. Will discuss restarting Xarelto with her tomorrow. Type II DM - Last A1c, 08/2024: 6.3 - home regimen: metformin, Januvia - Insulin sliding scale Anemia, chronic disease - monitor, transfuse for hgb < 7.0 HTN - meds as above HLD - atorvastatin COPD on 2L NC- no signs of exacerbation, home meds: Breztri, cetirizine, montelukast, continue + duo nebs prn GERD - protonix, tums Chronic hypomagnesemia - Mag oxide Anxiety/Depression - hydroxyzine, fluoxetine Neuropathy/Chronic Pain -gabapentin, dose reduced for JORGE Chemo induced Nausea and Vomiting - Zofran and Compazine IVF: Saline lock. Diet: Adult diet Diet texture: Regular; Carbohydrate restriction: Consistent Carb 2 (80 gm max/meal); Sodium restriction: 2,000 mg Na Last bowel movement: CHEF DE CUISINE Lines/Tubes: PIV Venous thromboembolism prophylaxis: SCDs only Code status: Full Code Discharge planning Anticipate home. Spouse 2 months ago so now lives alone. She is planning to stay with her sister short term. Sister confirms. Medically Ready for Discharge:Anticipated in 2-4 Days Noemí Leigh MD [facility] [1] calcium-vitamin D, 1 tablet, Oral, Daily cetirizine, 5 mg, Oral, Daily cyanocobalamin, 1,000 mcg, Oral, Daily ferrous sulfate, 324 mg, Oral, Daily with breakfast FLUoxetine, 40 mg, Oral, Daily gabapentin, 100 mg, Oral, 4x daily insulin lispro, 0-5 Units, Subcutaneous, TID with meals insulin lispro, 0-3 Units, Subcutaneous, Twice at night levETIRAcetam, 500 mg, Oral, BID magnesium oxide, 400 mg, Oral, BID melatonin, 6 mg, Oral, Nightly metoprolol tartrate, 12.5 mg, Oral, BID Tiotropium [place] Monohydrate, 2 puff, Inhalation, Daily And mometasone-formoterol, 2 puff, Inhalation, BID montelukast, 10 mg, Oral, Nightly mupirocin, 1 Application, Topical, BID nystatin, , Topical, BID pantoprazole, 40 mg, Oral, Daily [Held by provider] rivaroxaban, 20 mg, Oral, Daily with dinner sodium chloride, 10 mL, Intravenous, q12h [2] [3] PRN medications: acetaminophen, calcium carbonate, glucose OR dextrose 10 % OR [id number] % OR glucagon (human recombinant), hydrOXYzine HCl, ipratropium-albuterol, Alum & Mag hydroxide, Zinc Oxide, Cholestyramine, magic mouthwash BLM, polyethylene glycol, prochlorperazine, Insert peripheral IV AND Saline lock IV AND sodium chloride AND sodium chloride * Consults - Félix Duval MD - 12/02/2024 2:00 PM EDTAssociated Order(s): IP CONSULT TO NEUROSURGERY Reason For Consult Seizure in the setting of Stage III SCLC w/ mets to brain s/p craniotomy and WBRT Requesting Service: Hospital Medicine History Of Present Illness Teresa Rivera is a 64 y.o. 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 MRI of the head was obtained on 12/02 and was stable when compared to scans taken 10/13. Neurosurgery was consulted to follow-up MRI for post-operative changes. The patient reports she had a seizure while receiving treatment on 11/29. She believes she had previous seizure last week, but she was with her young grandchild who could not describe what happened. The patient does not recall what happened during the event. Patient was previously taking Keppra, but has not been taking it for 3-4 weeks. Past Medical History She has a past medical history of A-fib (CMS/HCC), Anxiety, Brain tumor (CMS/HCC), Chemotherapy-induced nausea and vomiting (08/28/2023), COPD (chronic obstructive pulmonary disease) (CMS/HCC), Depression, Heart failure, Hyperlipidemia, Hypertension, Osteoarthritis, Pneumonia, Small cell lung cancer (CMS/HCC), and Type 2 diabetes mellitus. She has no past medical history of [...] drink alcohol and does not use drugs. Medications Current Medications[2] Allergies Cephalexin, Lisinopril, and Meloxicam Review of Systems 14 point review of systems was performed and was negative except as noted per HPI. Neuro Exam Physical Exam GCS (EMV): 465 Awake, alert, orientedx3 Follows commands appropriately Speech clear PERRL, EOMI CN 2-12 grossly intact No drift Strength: Delt Bi Tri Load Checker RUE: 5/5 5/5 5/5 5/5 LUE: 5/5 5/5 5/5 5/5 HF KE KF DF PF RLE: 5/5 5/5 5/5 5/5 4/5 LLE: 5/5 5/5 5/5 5/5 4/5 Painful when assessing knee extension BL Sensation intact throughout bilateral upper and lower extremities Last Recorded Vitals Visit Vitals BP 120/54 (BP Location: Left arm, Patient Position: Lying) Pulse 80 Temp 37.3 ??C (99.1 ??F) (Oral) Resp 23 Ht 1.702 m (5' 7 ) Wt 121 kg (267 lb 6.7 oz) SpO2 96% BMI 41.88 kg/m?? OB Status Postmenopausal Smoking Status Former BSA 2.39 m?? Labs Results from last 7 days Lab Units 12/02/24 0344 12/01/24 0502 11/30/24 0209 SODIUM mmol/L 142 141 141 POTASSIUM mmol/L 4.1 4.3 3.7 CHLORIDE mmol/L 104 102 101 CO2 mmol/L 27 28 26 BUN mg/dL 18 19 17 CREATININE mg/dL 2.82* 3.00* 2.98* EGFR mL/min/1.73m*2 18.2 16.9 17.0 GLUCOSE mg/dL 161* 139* 155* CALCIUM mg/dL 8.7* 8.2* 7.6* Results from last 7 days Lab Units 11/30/24 0209 ALKALINE PHOSPHATASE U/L 96 BILIRUBIN TOTAL mg/dL 0.5 ALT U/L 14 AST U/L 21 Results from last 7 days Lab Units 12/01/24 0502 11/30/24 1210 11/30/24 0209 WBC 10*3/uL 8.48 7.50 9.55 HEMOGLOBIN g/dL 8.3* 8.1* 7.0* HEMATOCRIT % 26.6* 25.5* 22.9* PLATELETS 10*3/uL 203 186 190 Results from last 7 days Lab Units 11/30/24 0209 APTT sec 30 INR 1.2* Results from last 7 days Lab Units 11/30/24 0209 CRP mg/L 70.4* Imaging I personally reviewed, independently interpreted, and read available radiology reports (as available) for the following studies, and with the following findings: MRI Head (11/29): Area of concern for recurrence represents interval improvement from previous imaging per review with attending Assessment and Plan Teresa Rivera is a 64 y.o. 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 Assessment/Plan Principal Problem: Seizures (CMS/HCC) Active Problems: Morbid obesity with BMI of 40.0-44.9, adult (CMS/HCC) 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CMS/HCC) Anemia Anxiety COPD (chronic obstructive pulmonary disease) (CMS/HCC) Diabetes mellitus (CMS/HCC) Essential hypertension Mixed hyperlipidemia Hypomagnesemia Neuropathy A-fib (CMS/HCC) Heart failure JORGE (acute kidney injury) (CMS/HCC) - MRI Reviewed. No acute need for neurosurgical intervention - Continue on Keppra - Patient may keep follow-up in clinic as scheduled with repeat MRI head - Rest of care per primary - Neurosurgery will sign off Félix Duval MD Resident Physician PGY-1 Department of Neurosurgery [facility] [1] Family History Problem Relation Name Age of Onset No Known Problems Mother No Known Problems Father Diabetes Other Fibromyalgia Other [2] Current Facility-Administered Medications Medication Dose Route Frequency Provider Last Rate Last Admin acetaminophen (Tylenol) tablet 650 mg 650 mg Oral q6h PRN Jay Nicolas APRN, DNP 650 mg at 12/02/24 1205 calcium carbonate (Tums) chewable tablet 500 mg 500 mg Oral 4x daily PRN Jay Nicolas APRN, DNP calcium-vitamin D 500-200 MG-UNIT per tablet 1 tablet 1 tablet Oral Daily Jay Nicolas APRN, DNP1 tablet at 12/02/24 0832 cetirizine (ZyrTEC) tablet 5 mg 5 mg Oral Daily Jay Nicolas APRN, DNP 5 mg at 12/02/24 0832 cyanocobalamin (Vitamin B-12) tablet 1,000 mcg 1,000 mcg Oral Daily Jay Nicolas APRN, DNP 1,000mcg at 12/02/24 0832 glucose (Glutose) 40 % oral gel 15-30 grams of glucose 15-30 grams of glucose Sublingual q15 min PRN Jay Nicolas APRN, DNP Or dextrose 10 % (D10W) bolus 125 mL 125 mL Intravenous q15 min PRN Jay Nicolas APRN, DNP Or dextrose 10 % (D10W) bolus 250 mL 250 mL Intravenous q15 min PRN Jay Nicolas APRN, DNP Or glucagon (human recombinant) injection 1 mg 1 mg Intramuscular q15 min PRN Jay Nicolas APRN, DNP ferrous sulfate EC tablet 324 mg 324 mg Oral Daily with breakfast Jay Nicolas APRN, DNP 324 mg at 12/02/24 0832 FLUoxetine (PROzac) capsule 40 mg 40 mg Oral Daily Jay Nicolas APRN, DNP 40 mg at 12/02/24 0832 gabapentin (Neurontin) capsule 100 mg 100 mg Oral 4x daily Noemí Leigh MD 100 mg at 12/02/24 1513 hydrOXYzine HCl (Atarax) tablet 25 mg 25 mg Oral TID PRN Jay Nicolas APRN, DNP insulin lispro (Admelog) 100 units/mL injection - Correction - Standard Dose 0-5 Units SubcutaneousTID with meals Jay Nicolas APRN, DNP 1 Units at 12/01/24 1804 insulin lispro (Admelog) injection - Correction - Nighttime Dose 0-3 Units Subcutaneous Twice at night Jay Nicolas APRN, DNP ipratropium-albuterol (Duo-Neb) 0.5-2.5 mg/3 mL nebulizer solution 3 mL 3 mL Nebulization q4h PRN Jay Nicolas APRN, DNP levETIRAcetam (Keppra) tablet 500 mg 500 mg Oral BID Ulysses Nolasco DO 500 mg at 12/02/24 0832 magic butt balm (Cholestyramine) ointment 1 Application Topical q1h PRN Jay Nicolas APRN, DNP magic mouthwash BLM (FIRST-Mouthwash) suspension 15 mL 15 mL Swish & Spit 4x daily PRN Jay Nicolas APRN, DNP magnesium oxide (Mag-Ox) tablet 400 mg 400 mg Oral BID Jay Nicolas APRN, DNP 400 mg at melatonin tablet 6 mg 6 mg Oral Nightly Jay Nicolas APRN, DNP 6 mg at 12/01/24 2157 metoprolol tartrate (Lopressor) split tablet 12.5 mg 12.5 mg Oral BID Noemí Leigh MD 12.5 mg at 12/02/24 0832 Tiotropium [place] Monohydrate (Spiriva Respimat) 2.5 MCG/ACT inhaler 2 puff 2 puff Inhalation Daily Jay Nicolas APRN, DNP 2 puff at 12/02/24 0833 And mometasone-formoterol (Dulera 200) 200-5 MCG/ACT inhaler 2 puff 2 puff Inhalation BID Jay Nicolas APRN, DNP 2 puff at 12/02/24 0833 montelukast (Singulair) tablet 10 mg 10 mg Oral Nightly Jay Nicolas APRN, DNP 10 mg at 158 mupirocin (Bactroban) 2 % ointment 1 Application 1 Application Topical BID Jay Nicolas APRN, DNP 1 Application at 12/02/24 0833 nystatin (Mycostatin) 286741 UNIT/GM powder Topical BID Jay Nicolas APRN, DNP Given at pantoprazole (Protonix) EC tablet 40 mg 40 mg Oral Daily Jay Nicolas APRN, DNP 40 mg at 12/02/24 0832 polyethylene glycol (Miralax) packet 17 g 17 g Oral BID PRN Jay Nicolas APRN, DNP prochlorperazine (Compazine) tablet 10 mg 10 mg Oral q6h PRN Jay Nicolas APRN, DNP [Held by provider] rivaroxaban (Xarelto) tablet 20 mg 20 mg Oral Daily with dinner Jay Nicolas APRN, DNP sodium chloride 0.9 % flush 10 mL 10 mL Intravenous q12h Jay Nicolas APRN, DNP 10 mL at 12/02/24 1150 And sodium chloride 0.9 % flush 10 mL 10 mL Intravenous PRN Jay Nicolas APRN, DNP Cosigned by Amilcar Farnsworth MD at 12/04/2024 9:10 AM EDT Associated attestation - Amilcar Farnsworth MD - 12/04/2024 9:10 AM EDT Signature only. * Progress Notes - Lourdes Mckeon - 12/02/2024 12:21 PM EDT Case Management Adult Progress Note Teresa Rivera 64 y.o. female CSN: [id number] Admission: 11/29/2024 3:11 PM Primary Problem: Seizures (CMS/HCC) Anticipated Discharge Date: Unknown. Has Discharge Plans Changed? Disposition is home with support from family and resumption of HH. PT/OT recs are home with 08/12 assistance and PT/OT. Pt is current with [facility]. SW will send resumption of care orders at d/c. Medically Ready for Discharge: Anticipated in 2-4 Days Additional Comments Per medical team, ongoing symptom management; not yet medically ready. SW will continue to follow. Lourdes Mckeon * Progress Notes - Noemí Leigh MD - 12/01/2024 4:57 PM EDT Daily Progress Note Chief Complaint Weakness Subjective Notes having diplopia upon arrival to her room. She says she hasn't had this before. It resolved during our visit. Sister Era on speakerphone during the visit. Last Recorded Vitals Blood pressure 112/73, pulse 90, temperature 36.8 ??C (98.3 ??F), temperature source Oral, resp. rate 18, weight 121 kg (266 lb 12.1 oz), SpO2 98%. Physical Exam Awake and alert. Oriented x 3. HEENT: PERRL. Right eye movements impaired (abduction) with diplopia. Mouth clear. Neck supple. Chest: Diminished breath sounds bilaterally. Heart: RRR no RMG Abd: Soft, NT, ND, BS+ normally active. Ext: 1+ edema in lower extremities Labs (in last 18 hours): CBC WBC 8.48 Hb 8.3 (L) Plt 203 Hct 26.6 (L) ANC ?? INR ??, PTT ??, Anti-Xa ?? BMP Na 141 Cl 102 BUN 19 Glu 139 (H) K 4.3 Co2 28 Cr 3.00 (H) Ca 8.2 (L) iCa ?? Mg ??, Phos ?? Lactate ?? LFT AST ?? AlkPhos ?? T Prot ?? ALK ?? Bili ?? Alb ?? D.Bili ?? Microbiology: Results Procedure Component Value Units Date/Time Blood Culture (Aerobic/Anaerobet Set) [[id number]] Collected: 11/30/24 0232 Order Status: Completed Specimen: Blood, Venous Updated: 11/30/24 0525 Culture Culture in lab Streptococcus pneumoniae and Legionella Urinary Antigen [[id number]] (Normal) Collected: 11/30/24 020 Order Status: Completed Specimen: Urine, Clean Catch Updated: 11/30/24 0518 Legionella pneumophila serogroup 1 Antigen Result (Urine) Negative Streptococcus pneumoniae Antigen Result (Urine) Negative Nasopharyngeal Respiratory Panel [[id number]] (Normal) Collected: 11/30/24 0209 Order Status: Completed Specimen: Swab from Nasopharynx Updated: 11/30/24 0505 Nasopharyngeal Respiratory PCR Interpretation Not Detected for all analytes Narrative: This assay can detect Adenovirus, Coronavirus, Human [...] regarded as investigational or for research. The [facility] is certified under the Clinical Laboratory Improvement Amendments of 1988 (CLIA-88) as qualified to perform high complexity clinical laboratory testing. Blood Culture (Aerobic/Anaerobet Set) [[id number]] Collected: 11/30/24208 Order Status: Completed Specimen: Blood, Venous Updated: 11/30/24 0501 Culture Culture in lab SARS CoV-2/COVID-19 by PCR [[id number]] (Normal) Collected: 11/30/24208 Order Status: Completed Specimen: Swab from Nasopharynx Updated: 11/30/24 0402 SARS CoV-2/COVID-19 RNA PCR Result Not Detected Narrative: This test is FDA approved for use [...] clinical signs and symptoms consistent with COVID-19. Multi Drug Resistance Test [[id number]] Collected: 11/30/24208 Order Status: Sent Specimen: Swab from Nares and Carole Rectal Updated: 11/30/24 0313 Respiratory Culture and Gram Stain [[id number]] Order Status: Sent Specimen: Sputum, Expectorated Imaging (in last 24 hours): All Images reviewed by me US Renal Complete Result Date: 11/30/2024 No hydronephrosis. CRITICAL RESULT: No. COMMUNICATION: Per this written report. Preliminary report signed by Ashu Fontana MD on 11/30/2024 1:32 PM By electronically signing this report, I, the attending physician, attest that I have personally reviewed the images/data for the above examination(s) and agree with the final edited report. Drafted by Ashu Fontana MD on 11/30/2024 1:26 PM Final report signed by Anna Dee MD on 11/30/2024 2:15 PM VAS US Venous Duplex Lower Extremity Bilateral Result Date: 11/30/2024 Right: Normal study; no evidence of acute DVT is identified. Left: Normal study; no evidence of acute DVT is identified. COMMUNICATION: Per this written report. Preliminary report signed by Anum Hurley RVT on 11/30/2024 7:45 AM By electronically signing this report, I, the attending physician, attest that I have personally reviewed the images/data for the above examination(s) and I agree with thefinal edited report. Drafted by Anum Hurley RVT on 11/30/2024 7:44 AM Final report signed by Laura Meeks MD on 11/30/2024 9:44 AM XR Chest 1 View Result Date: 11/29/2024 Persistent airspace disease within the right upper lung with left basilar atelectasis and possible trace left pleural effusion. Atelectasis versus infection in the right lower lung zone laterally CRITICAL RESULT: No. COMMUNICATION: Per this written report. Preliminary report signed by Tim Ozuna DO on 11/29/2024 7:52 PM By electronically signing this report, I, the attending physician, attestthat I have personally reviewed the images/data for the above examination(s) and agree with the final edited report. Drafted by Tim Ozuna DO on 11/29/2024 7:51 PM Final report signed by Mathew Mathew MD on 11/29/2024 8:[address] Head wo IV Contrast Result Date: 11/29/2024 Similar appearance of small amount of subdural blood beneath left parietal craniotomy flap just left of the vertex. Similar appearance of adjacent left parafalcine subdural hematoma. No new findings.CRITICAL RESULT: No. COMMUNICATION: Per this written report. Drafted by Abhilash Castorena MD on 11/29/2024 8:39 PM Final report signed by Abhilash Castorena MD on 11/29/2024 8:45 PM EKG reviewed by me Encounter Date: 11/29/24 ECG Adult Result Value EKG DIAGNOSIS CLASS Abnormal Ventricular Rate 88 Atrial Rate 88 NH Interval 140 QRSD Interval 88 QT Interval 402 QTC Interval 487 P [place] 65 R [place] 6 T Wave [place] 34 Diagnosis Normal sinus rhythm Diagnosis Possible Left atrial enlargement Diagnosis Incomplete right bundle branch block Diagnosis Abnormal ECG Diagnosis Diagnosis Confirmed by Jeff Jackson ([id number]) on 11/30/2024 7:29:48 AM *Note: Due to a large number of results and/or encounters for the requested time period, some results have not been displayed. A complete set of results can be found in Results Review. 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 Diplopia - New symptom today, resolved but appears to be due to poor abduction of right eye - MRI brain ordered and pending Seizure - Likely new symptom (maybe had seizure 1 week ago, witnessed seizure 11/29). 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 - Chemo: Carboplatin/Etopside daily, Atezolizumab q21 days - last chemo: 11/10/24 - Radiation Therapy: 10/24/24-11/07/24 - Discussed with Med Onc on rounds today Atrial flutter/fibrillation - Followed by cardiology for atrial flutter/fibrillation; history of ablation - Noted to be mostly in NSR on tele; one episode of AF - Home meds: lasix, spiralactone, htcz-triamterene, metoprolol, losartan; holding diuretics and losartan - Holding anticoagulation due to recent SAH/SDH Type II DM - Last A1c, 08/2024: 6.3 - home regimen: metformin, Januvia - Insulin sliding scale Anemia, chronic disease - monitor, transfuse for hgb < 7.0 HTN - meds as above HLD - atorvastatin COPD on 2L NC- no signs of exacerbation, home meds: Breztri, cetirizine, montelukast, continue + duo nebs prn GERD - protonix, tums Chronic hypomagnesemia - Mag oxide Anxiety/Depression - hydroxyzine, fluoxetine Neuropathy/Chronic Pain -gabapentin, dose reduced for JORGE Chemo induced Nausea and Vomiting - Zofran and Compazine IVF: Saline lock. Diet: Adult diet Diet texture: Regular; Carbohydrate restriction: Consistent Carb 2 (80 gm max/meal); Sodium restriction: 2,000 mg Na Last bowel movement: CHEF DE CUISINE Lines/Tubes: PIV Venous thromboembolism prophylaxis: SCDs only Code status: Full Code Discharge planning Anticipate home. Spouse 2 months ago so now lives alone. She is planning to stay with her sister short term. Medically Ready for Discharge:Anticipated in 2-4 Days Noemí Leigh MD [facility] [1] calcium-vitamin D, 1 tablet, Oral, Daily cetirizine, 5 mg, Oral, Daily cyanocobalamin, 1,000 mcg, Oral, Daily ferrous sulfate, 324 mg, Oral, Daily with breakfast FLUoxetine, 40 mg, Oral, Daily gabapentin, 100 mg, Oral, 4x daily insulin lispro, 0-5 Units, Subcutaneous, TID with meals insulin lispro, 0-3 Units, Subcutaneous, Twice at night levETIRAcetam, 500 mg, Oral, BID magnesium oxide, 400 mg, Oral, BID melatonin, 6 mg, Oral, Nightly metoprolol tartrate, 50 mg, Oral, BID Tiotropium [place] Monohydrate, 2 puff, Inhalation, Daily And mometasone-formoterol, 2 puff, Inhalation, BID montelukast, 10 mg, Oral, Nightly mupirocin, 1 Application, Topical, BID nystatin, , Topical, BID pantoprazole, 40 mg, Oral, Daily [Held by provider] rivaroxaban, 20 mg, Oral, Daily with dinner sodium chloride, 10 mL, Intravenous, q12h [2] [3] PRN medications: acetaminophen, calcium carbonate, glucose OR dextrose 10 % OR lowztbec72 % OR glucagon (human recombinant), hydrOXYzine HCl, ipratropium-albuterol, Alum & Mag hydroxide, Zinc Oxide, Cholestyramine, magic mouthwash BLM, polyethylene glycol, prochlorperazine, Insert peripheral IV AND Saline lock IV AND sodium chloride AND sodium chloride * Progress Notes - Yamilet Longoria Imelda, MATERIAL CONTROL MANAGER, DNP - 12/01/2024 12:08 PM EDT Medical Oncology Consult Follow-Up Note 12/01/24 Patient Care Team: Laurie Gutierrez MD as PCP - Joshua Gerber MD as Consulting Physician (Radiation Oncology) Sabine Morales LPN as TCM Nurse Subjective: Pt lying comfortably in bed. Notes new onset of double vision this morning. She denies changes in mentation, strength, or sensation. Does have a headache. States it is on the top of her head, rates 5-6/10. No fevers. Ongoing fatigue and weakness. Good PO intake, but notes she received 'slop' this morning for breakfast. Denies nausea or vomiting. Denies chest pain or shortness of breath. Denies diarrhea, constipation, or difficulties voiding. She is tearful today, as family support is limited tosister and one son. She states she wants to fight for her grand baby. PMH, Surg History, Social History, Family History and current medications reviewed and unchanged from last encounter of 12/01/24, or updated as indicated. ROS: Targeted review of systems completed and negative unless stated above. Objective: Visit Vitals BP 113/60 (BP Location: Left arm, Patient Position: Lying) Pulse 82 Temp 36.8 ??C (98.3 ??F) (Oral) SpO2 99% ECO General: Lying/resting comfortably in bed, NAD, fatigued/ill appearing HEENT: NCAT, PERRLA/EOMI, anicteric Neck: Supple Heart: RRR, no MGR Lungs: CTAB; no rales, rhonchi or wheezes; NC Abdomen: Soft, NTND, + BS Extremities: No edema, distal pulses intact Musculoskeletal: No focal tenderness or deformity Skin: No visible rashes or lesions Neuro: Generalized weakness otherwise grossly nonfocal; no localizing deficits of strength, sensation, or mentation Psychiatric: Normal mood and thought content, tearful Labs: Labs in last 18 hours CBC WBC 8.48 Hb 8.3 (L) Plt 203 Hct 26.6 (L) ANC ?? INR ??, PTT ??, Anti-Xa ?? BMP Na 141 Cl 102 BUN 19 Glu 139 (H) K 4.3 Co2 28 Cr 3.00 (H) Ca 8.2 (L) iCa ?? Mg ??, Phos ?? Lactate ?? LFT AST ?? AlkPhos ?? T Prot ?? ALK ?? Bili ?? Alb ?? D.Bili ?? Labs personally reviewed Imaging: As noted in HPI if relevant. Assessment/Plan: Teresa Rivera 64 y.o. 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 Medical oncology consulted for oncology plan of care. # ES-SCLC - Primary oncologist: Dr. 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 - 09/01/23 PET/CT: hypermetabolism of mediastinum, faint area RUL; MRI brain negative - 08/2023 - 10/2023: XRT + 4 cycles carbo/etop - 08/31/24: To ED for weakness/gait changes; CT head: 2.9 x 3.2 x 3.2 cm L paramedian superior frontal broad based extra-axial hyperdense hemorrhage with surrounding vasogenic edema - 09/02/24 MRI: enhancing extra-axial mass in L frontal vertex region with invasion of superior sagittal sinus and filling defect in sinus suggestive of bland tumor or thrombus, adjacent intraparenchymal hemorrhage and surrounding vasogenic edema in L frontal lobe - 09/05/24: S/p crani, path + metastatic carcinoma morphologically compatible with known small cell carcinoma - 10/24 - 11/07/24: 10 fx WBRT - 10/04/24: Began carbo + etop + atezo - 11/29: To ED from clinic for seizure # Seizure - ?Unwitnessed episode ~ 1-2 weeks ago - 11/29: Witnessed seizure in infusion clinic - CT head: similar appearance of small amount of subdural blood beneath L parietal craniotomy flap just left of vertex, similar appearance of adjacent L parafalcine subdural hematoma - Neurology consulted: recommend EEG - Seizure precautions - Continue renally dosed keppra - Await MRI # New onset diplopia - Will proceed with MRI head today to evaluate underlying etiology # JORGE - Cr 3.00 today - Baseline Cr 0.61 - 0.94 - 11/30: Renal US no hydronephrosis - Avoid nephrotoxic agents - Consider nephrology consult # Gr 2 anemia - No s/s acute blood loss - Continue to monitor with CBC - Transfuse if hgb /< 7.0 Plan 12/01/24: - Continue to HOLD C3 carbo + etop due to acute seizure - Will obtain MRI head to evaluate underlying etiology of seizures, diplopia, headaches - Closely monitor for subsequent seizures and continue renally dosed keppra - Monitor kidney function/creatinine - FU Dr. Dunne + infusion slot C3D1 held 12/20 - Dispo: HWA - Rest per primary team Medical oncology will continue to follow. Please call with additional questions or concerns. > 40 minutes was spent on this encounter; including preparing to see the patient, which involvedreview/interpretation of diagnostics and reports; obtaining and/or reviewing separately obtained history; performing appropriate physical exam; ordering/scheduling medications, tests or procedures; co mmunicating findings and counseling/educating the patient, family and/or caregiver; documentation in EMR; and care coordination. The selection, dosing and administration of anti-cancer agents and the management of associated toxicities requires complex medical decision making and intensive monitoring for toxicity. Modifications of drug dose and schedule as well as the initiation of supportive care interventions are often necessary because of expected toxicities. This varies individually based on patient tolerability, priortreatments and comorbidities/risk status. Monitoring typically entails labs, imaging and/or other diagnostics, utilizing a healthcare delivery team experienced in the use of anticancer agents and themanagement of associated toxicities in patients with cancer. Attending physician previously developed plan of care, which I discussed with the patient, whom I saw independently. The patient verbalized understanding and agrees with plan. All questions answered to their satisfaction. Encouraged to call should other questions/concerns arise. Yamilet Longoria DNP, SHARDA, TICKET CLERK-C Medical Oncology * Progress Notes - Lourdes Mckeon - 12/01/2024 7:48 AM EDT Case Management Adult Initial Progress Note Teresa Rivera 64 y.o. female CSN: [id number] Admission: 11/29/2024 3:11 PM Primary Problem: Seizures (CMS/HCC) Field Sales Associate reviewed chart to complete this Initial Case Management Assessment. PCP: Laurie Gutierrez MD Emergency Contact: Extended Emergency Contact Information Primary Emergency Contact: NicoleZachary Mobile Relation: Son Preferred language: Azerbaijani Shell Assembler needed? No Secondary Emergency Contact: NicoleAurora Mobile Relation: Daughter Preferred language: Azerbaijani Shell Assembler needed? No Insurance: Primary Visit Coverage Payer Plan Sponsor Code Group Number Group Name [employer] [id number] Primary Visit Coverage Subscriber Subscriber ID Subscriber Name Subscriber SSN Subscriber Address [id number] TERESA RIVERA [phone] [address] [place] [address] Patient information: Pt lives alone at listed address in [place], [place]. Pt's sister and children are supportive. Daily Living Activities: Independent. Current DME: RW, wheelchair, BSC, home O2 through [employer] Anticipated Discharge Date: Unknown. Patient's Discharge Goal: Return home with support from family. Assistance Available at Discharge: Family. Discharge Transport: Family. Follow Up Transport: Family. Home Health / Home Infusion / Outpatient Dialysis Services: Pt is current with [facility]. Living Will/Advance Directive/Power of Construction Producer /Guardian: None. Additional Comments: Per medical record, pt is a re-admit; last d/c'ed from [facility] on 11/22. Pt admits to [facility] on 11/29 from the infusion clinic secondary to seizure and JORGE. MedOnc following. PT/OT recs are home with 08/12 assistance and resumption of PT/OT. SW will continue to follow. Lourdes Mckeon * Care Plan - Rudy Almendarez DO - 12/01/2024 6:56 AM EDT BRIEF ELECTROPHYSIOLOGY CARE PLAN Ms. Rivera follows with outpatient electrophysiology clinic and recently, per family, has had bradycardia and hypotensive events. Discussed with patient's primary electrophysiology Dr. Oconnell and planned to decrease metoprolol dosing however on telemetry during her admission she is tolerating home dose without bradycaridc or hypotensive events. Will remain on metoprolol tartrate 50 mg BID for now. Ga Almendarez DO Department of Cardiovascular Disease Fellow, PGY-4 Cosigned by Teresita Oconnell MD at 12/01/2024 4:15 PM EDT Associated attestation - Teresita Oconnell MD - 12/01/2024 4:15 PM EDT Signature only. * Progress Notes - Noemí Leigh MD - 11/30/2024 2:24 PM EDT Daily Progress Note Chief Complaint Weakness Subjective History reviewed - patient able to give a history. She notes that her right foot twitches before she has an episode. Per report, this was her first seizure. She says that she thinks she may have had one about a week ago at home because her symptoms were similar, unwitnessed. She's concerned abouther kidneys. She does not want HD if it came to that. Her passed in late September. She's been inand out of the hospital for the past few months and is wondering if she should still fight. Last Recorded Vitals Blood pressure 101/57, pulse 73, temperature 37 ??C (98.6 ??F), temperature source Oral, resp. rate22, weight 121 kg (266 lb 12.1 oz), SpO2 99%. Physical Exam Awake and alert. Oriented x 3. HEENT: PERRL. Mouth clear. Neck supple. Chest: CTA b Heart: RRR no RMG Abd: Soft, NT, ND, BS+ normally active. Ext: 1+ edema in lower extremities Labs (in last 18 hours): CBC WBC 7.50 Hb 8.1 (L) Plt 186 Hct 25.5 (L) ANC 7.75 (H) INR 1.2 (H), PTT 30, Anti-Xa ?? BMP Na 141 Cl 101 BUN 17 Glu 155 (H) K 3.7 Co2 26 Cr 2.98 (H) Ca 7.6 (L) iCa 4.1 (L) Mg 2.2, Phos 3.7 Lactate ?? LFT AST 21 AlkPhos 96 T Prot 6.0 (L) ALK 14 Bili 0.5 Alb ?? D.Bili ?? Microbiology: Results Procedure Component Value Units Date/Time Blood Culture (Aerobic/Anaerobet Set) [[id number]] Collected: 11/30/24 0232 Order Status: Completed Specimen: Blood, Venous Updated: 11/30/24524 Culture Culture in lab Streptococcus pneumoniae and Legionella Urinary Antigen [[id number]] (Normal) Collected: 11/30/24208 Order Status: Completed Specimen: Urine, Clean Catch Updated: 11/30/24 0518 Legionella pneumophila serogroup 1 Antigen Result (Urine) Negative Streptococcus pneumoniae Antigen Result (Urine) Negative Nasopharyngeal Respiratory Panel [[id number]] (Normal) Collected: 11/30/24 0209 Order Status: Completed Specimen: Swab from Nasopharynx Updated: 11/30/24 0505 Nasopharyngeal Respiratory PCR Interpretation Not Detected for all analytes Narrative: This assay can detect Adenovirus, Coronavirus, Human [...] Respiratory PCR Panel is performed using the [employer] instrument. This test is FDA approved for use with Nasopharyngeal swabs only. This test is used for clinical purposes. It should not be regarded as investigational or for research. The [facility] Clinical Microbiology [facility] is certified under the Clinical Laboratory Improvement Amendments of 1988 (CLIA-88) as qualified to perform high complexity clinical laboratory testing. Blood Culture (Aerobic/Anaerobet Set) [[id number]] Collected: 11/30/24208 Order Status: Completed Specimen: Blood, Venous Updated: 11/30/24 0501 Culture Culture in lab SARS CoV-2/COVID-19 by PCR [[id number]] (Normal) Collected: 11/30/24208 Order Status: Completed Specimen: Swab from Nasopharynx Updated: 11/30/24 0402 SARS CoV-2/COVID-19 RNA PCR Result Not Detected Narrative: This test is FDA approved for use [...] clinical signs and symptoms consistent with COVID-19. Multi Drug Resistance Test [[id number]] Collected: 11/30/24208 Order Status: Sent Specimen: Swab from Nares and Carole Rectal Updated: 11/30/24 0313 Respiratory Culture and Gram Stain [[id number]] Order Status: Sent Specimen: Sputum, Expectorated Imaging (in last 24 hours): All Images reviewed by ky US Renal Complete Result Date: 11/30/2024 No hydronephrosis. CRITICAL RESULT: No. COMMUNICATION: Per this written report. Preliminary report signed by Ashu Fontana MD on 11/30/2024 1:32 PM By electronically signing this report, I, the attending physician, attest that I have personally reviewed the images/data for the above examination(s) and agree with the final edited report. Drafted by Ashu Fontana MD on 11/30/2024 1:26 PM Final report signed by Anna Dee MD on 11/30/2024 2:15 PM VAS US Venous Duplex Lower Extremity Bilateral Result Date: 11/30/2024 Right: Normal study; no evidence of acute DVT is identified. Left: Normal study; no evidence of acute DVT is identified. COMMUNICATION: Per this written report. Preliminary report signed by Anum Hurley RVT on 11/30/2024 7:45 AM By electronically signing this report, I, the attending physician, attest that I have personally reviewed the images/data for the above examination(s) and I agree with thefinal edited report. Drafted by Anum Hurley RVT on 11/30/2024 7:44 AM Final report signed by Laura Meeks MD on 11/30/2024 9:44 AM XR Chest 1 View Result Date: 11/29/2024 Persistent airspace disease within the right upper lung with left basilar atelectasis and possible trace left pleural effusion. Atelectasis versus infection in the right lower lung zone laterally CRITICAL RESULT: No. COMMUNICATION: Per this written report. Preliminary report signed by Tim Ozuna DO on 11/29/2024 7:52 PM By electronically signing this report, I, the attending physician, attestthat I have personally reviewed the images/data for the above examination(s) and agree with the final edited report. Drafted by Tim Ozuna DO on 11/29/2024 7:51 PM Final report signed by Mathew Mathew MD on 11/29/2024 8:[address] Head wo IV Contrast Result Date: 11/29/2024 Similar appearance of small amount of subdural blood beneath left parietal craniotomy flap just left of the vertex. Similar appearance of adjacent left parafalcine subdural hematoma. No new findings.CRITICAL RESULT: No. COMMUNICATION: Per this written report. Drafted by Abhilash Castoerna MD on 11/29/2024 8:39 PM Final report signed by Abhilash Castorena MD on 11/29/2024 8:45 PM EKG reviewed by me Encounter Date: 11/29/24 ECG Adult Result Value EKG DIAGNOSIS CLASS Abnormal Ventricular Rate 88 Atrial Rate 88 NH Interval 140 QRSD Interval 88 QT Interval 402 QTC Interval 487 P [place] 65 R [place] 6 T Wave [place] 34 Diagnosis Normal sinus rhythm Diagnosis Possible Left atrial enlargement Diagnosis Incomplete right bundle branch block Diagnosis Abnormal ECG Diagnosis Diagnosis Confirmed by Jeff Jackson ([id number]) on 11/30/2024 7:29:48 AM *Note: Due to a large number of results and/or encounters for the requested time period, some results have not been displayed. A complete set of results can be found in Results Review. 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 Seizure - Likely new symptom (maybe had seizure 1 week ago, witnessed seizure yesterday). 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 - Chemo: Carboplatin/Etopside daily, Atezolizumab q21 days - last chemo: 11/10/24 - Radiation Therapy: 10/24/24-11/07/24 - Discussed with Med Onc on rounds today Atrial flutter/fibrillation - Followed by [facility] cardiology for atrial flutter/fibrillation; history of ablation - Home meds: lasix, spiralactone, htcz-triamterene, metoprolol, losartan; holding diuretics and losartan - Holding anticoagulation due to recent SAH/SDH Type II DM - Last A1c, 08/2024: 6.3 - home regimen: metformin, Januvia - Insulin sliding scale Anemia, chronic disease - monitor, transfuse for hgb < 7.0 HTN - meds as above HLD - atorvastatin COPD on 2L NC- no signs of exacerbation, home meds: Breztri, cetirizine, montelukast, continue + duo nebs prn GERD - protonix, tums Chronic hypomagnesemia - Mag oxide Anxiety/Depression - hydroxyzine, fluoxetine Neuropathy/Chronic Pain -gabapentin, dose reduced for JORGE Chemo induced Nausea and Vomiting - Zofran and Compazine IVF: LR, now stopping, saline lock. Diet: Adult diet Diet texture: Regular; Carbohydrate restriction: Consistent Carb 2 (80 gm max/meal); Sodium restriction: 2,000 mg Na Last bowel movement: CHEF DE CUISINE Lines/Tubes: PIV Venous thromboembolism prophylaxis: SCDs only Code status: Full Code Discharge planning Anticipate home. Spouse 2 months ago so now lives alone. She is planning to stay with her sister short term. Medically Ready for Discharge:Anticipated in 2-4 Days Noemí Leigh MD [facility] [1] calcium-vitamin D, 1 tablet, Oral, Daily cetirizine, 5 mg, Oral, Daily cyanocobalamin, 1,000 mcg, Oral, Daily ferrous sulfate, 324 mg, Oral, Daily with breakfast FLUoxetine, 40 mg, Oral, Daily gabapentin, 100 mg, Oral, 4x daily insulin lispro, 0-5 Units, Subcutaneous, TID with meals insulin lispro, 0-3 Units, Subcutaneous, Twice at night lactobacillus acidophilus, 1 packet, Oral, Daily levETIRAcetam, 500 mg, Oral, BID magnesium oxide, 400 mg, Oral, BID melatonin, 6 mg, Oral, Nightly metoprolol tartrate, 50 mg, Oral, BID Tiotropium [place] Monohydrate, 2 puff, Inhalation, Daily And mometasone-formoterol, 2 puff, Inhalation, BID montelukast, 10 mg, Oral, Nightly mupirocin, 1 Application, Topical, BID nystatin, , Topical, BID pantoprazole, 40 mg, Oral, Daily [Held by provider] rivaroxaban, 20 mg, Oral, Daily with dinner sodium chloride, 10 mL, Intravenous, q12h [2] lactated Ringer's, 100 mL/hr, Last Rate: 100 mL/hr (11/30/24 0252) [3] PRN medications: acetaminophen, calcium carbonate, glucose OR dextrose 10 % OR % OR glucagon (human recombinant), hydrOXYzine HCl, ipratropium-albuterol, Alum & Mag hydroxide, Zinc Oxide, Cholestyramine, magic mouthwash BLM, polyethylene glycol, prochlorperazine, Insert peripheral IV AND Saline lock IV AND sodium chloride AND sodium chloride * Consults - Summer Eisenberg APRN, DNP - 11/30/2024 11:30 AM EDTAssociated Order(s): Inpatient consult to Oncology Inpatient consult to Oncology Consult performed by: Summer Eisenberg APRN, DNP Consult ordered by: Noemí Leigh MD Reason for consult: POC r/t SCLC Medical Oncology Consult Note Date: 11/30/24 Primary Service: Patient Care Team: Laurie Gutierrez MD as PCP - General Joshua Martínez MD as Consulting Physician (Radiation Oncology) Sabine Morales LPN as TCM Nurse History of Present Illness Teresa Rivera is a 64 y.o. female with SCLC who presented to chemotherapy infusion suite for C3D1 Carboplatin / Etoposide daily x3 / Atezolizumab on 11/29/24. In the infusion suite she began convulsing with bladder incontinence. She was sent to ED for further work-up. CT of the head showed with a sm amount of subdural blood beneath left parietal carniotomy flap, no midline shift, no acute infarct. Neurology was consulted. The patient was started on renally dosed Keppra. MRI w/ and w/o contrast was recommended, but unfortunately pt has an JORGE. She was admitted per hospital medicine. Medical oncology was consulted on 11/30/24 for POC r/t SCLC. At bedside, pt complains of a headache. She also complains of fatigue. She denies fever, body aches, chills, rash, edema, chest pain, vision changes, or falls. She did have a similar episode at home ~1 week ago but it was unwitnessed. She does live alone and was recently became a . She was initially diagnosed as limited stage SCLC. She was treated w/ concurrent chemoradiation andno prophylactic cranial irradiation. Unfortunately in August 2024 she was found to have brain mets requiring a craniotomy followed by WBRT. She was then deemed extensive stage SCLC. She was started on carbo/etoposide/atezo and completed 2 cycles w/ last C2D1-3 on 10/25-10/28. She was due for C3D1 yesterday, but it was held d/t seizure in the infusion suite. Oncology History Oncology History Extensive stage primary small cell carcinoma of lung 09/09/2024 Initial Diagnosis Extensive stage primary small cell carcinoma of lung 10/04/2024 - Chemotherapy pegfilgrastim (Neulasta) 6 MG/0.6ML on-body injector 6 mg, 6 mg, Subcutaneous, Once, 1 of 3 cycles Administration: 6 mg (11/10/2024) Cwkmdojcjglb-Pwugfbxpfrzpf-orfo (Tecentriq Hybreza) [id number] MG-UT/15ML injection solution 1,875 mg, 1,875 mg, [...] Brain WBRT 10/24/2024-11/07/2024 -- -- 3,000 cGy Review of Systems: 14 pt review of systems performed and negative except as noted in HPI. Past Medical History Past Medical History[1] Past Surgical History Surgical History[2] Family History Family History[3] Social History Patient lives in [place], [place] Tobacco Use History[4] Social History Substance and Sexual Activity Alcohol Use Never Social History Substance and Sexual Activity Drug Use Never Allergies Allergies[5] Medications Current medications reviewed Physical Exam Visit Vitals BP 101/57 (BP Location: Left arm, Patient Position: Lying) Pulse 73 Temp 37 ??C (98.6 ??F) (Oral) Resp 22 ECO General: Lying/resting comfortably in bed, NAD HEENT: NCAT, PERRLA/EOMI, anicteric; no oral lesions Neck: Supple, no lymphadenopathy or JVD Heart: RRR, no MGR Lungs: CTAB; no rales, rhonchi or wheezes; 2L NC Abdomen: Soft, NTND, + BS Extremities: No edema, distal pulses intact Musculoskeletal: No focal tenderness or deformity; generalized weakness Skin: No visible rashes or lesions Neuro: Grossly nonfocal; no localizing deficits of strength, sensation, or mentation Psychiatric: Normal mood and thought content Labs Labs in last 18 hours CBC WBC 7.50 Hb 8.1 (L) Plt 186 Hct 25.5 (L) ANC 7.75 (H) INR 1.2 (H), PTT 30, Anti-Xa ?? BMP Na 141 Cl 101 BUN 17 Glu 155 (H) K 3.7 Co2 26 Cr 2.98 (H) Ca 7.6 (L) iCa 4.1 (L) Mg 2.2, Phos 3.7 Lactate ?? LFT AST 21 AlkPhos 96 T Prot 6.0 (L) ALK 14 Bili 0.5 Alb ?? D.Bili ?? No results found for: UTPCR No results found for: TSH , FREET4 No results found for: CEA , CA199 , AFP Imaging: As per HPI if relevant Assessment and Plan Teresa Rivera is a 64 y.o. female who is admitted with a seziure. Medical oncology consulted for POC r/t ES-SCLC. #ES-SCLC - Oncologist: Dr. Dunne - Regimen: CARBOplatin / Etoposide Daily x 3 / Atezolizumab Every 21 Days - 07/2023 diagnosed w/ limited stage SCLC. -09/01/2023: PET/CT demonstrates hypermetabolism in mediastinum and faint area of right upper lobe 09/01/2023: MRI Brain negative for intracranial metastatic disease -09/08/2023 - 10/06/2023: Radiation to right upper lobe and mediastinum with carboplatin/etoposide -- initially received concurrent chemoradiation and no prophylactic cranial irradiation. 09/08/2023 - 11/13/2023: Carboplatin/etoposide x 4 cycles --6000 cGy in 40 fractions delivered twice daily to the right upper lobe and mediastinal lymph nodes Start date: 09/08/2023 End date: 10/06/2023 - presented with 3 weeks of right-sided weakness on 08/31/2024. --she was found to have brain mets requiring a craniotomy followed by WBRT with 10 fx last on 11/07/24. -She was then deemed extensive stage SCLC. -She was started on carbo/etoposide/atezo and completed 2 cycles w/ last C2D1-3 on 10/25-10/28. #Seizure - one unwitnessed episode ~1 week ago - CT head 11/29: sm amt of subdural blood beneath left parietal craniotomy flap just left of the vertex; no new findings - neurology consult - consider MRI of brain once JORGE improves - seizure precautions - Ativan prn for continued seizure activity - renally dosed Keppra #Anemia of chronic dz - further affected by chemotherapy - monitor h/h closely - transfuse if hgb <7 or hct <22 #JORGE - creatinine 2.98 - baseline creatinine 0.61-0.94 - Renal US - no hydronephrosis - avoid nephrotoxic agents - will hold on MRI of head w/ contrast d/t JORGE - consider nephrology consult Plan 11/30/24: - Hold C3 d/t acute seizure - Will await improvement of renal function to get MRI with contrast - monitor for subsequent seizures - cont Keppra - Neurology following - monitor h/h closely; transfuse if hgb <7 or hct <22 Thank you for the consult. We will continue to follow with you. Please call with additional questions or concerns. 60 minutes was spent on this encounter; including preparing to see the patient, which involved review/interpretation of diagnostics and reports; obtaining and/or reviewing separately obtained history; performing appropriate physical exam; ordering/scheduling medications, tests or procedures; communicating findings and counseling/educating the patient, family and/or caregiver; documentation in EMR; and care coordination. Attending physician developed plan of care, which we both discussed with the patient .Discussed patient during multidisciplinary rounds with current inpatient medical oncologist. The patient verbalized understanding and agrees with plan. All questions answered to their satisfaction. Encouraged to call should other questions/concerns arise. Summer Eisenberg APRN, [facility] Division of Medical Oncology [1] Past Medical History: Diagnosis Date A-fib ([facility]) Anxiety Brain tumor ([facility]) Chemotherapy-induced nausea and vomiting 08/28/2023 COPD (chronic obstructive pulmonary disease) ([facility]) Depression Heart failure Hyperlipidemia Hypertension Osteoarthritis Pneumonia Small cell lung cancer ([facility]) Type 2 diabetes mellitus [2] Past Surgical History: Procedure Laterality Date BRAIN SURGERY TUBAL LIGATION N/A Tubal Ligation from [facility] TYMPANOSTOMY TUBE PLACEMENT N/A Ear Surgery Eustachian Tube from [facility] [3] Family History Problem Relation Name Age of Onset No Known Problems Mother No Known Problems Father Diabetes Other Fibromyalgia Other [4] Social History Tobacco Use Smoking Status Former Current packs/day: 0.00 Average packs/day: 1.5 packs/day for 48.4 years (72.6 ttl pk-yrs) Types: Cigarettes Start date: 1975 Quit date: 10/17/2023 Years since quittin.1 Passive exposure: Past Smokeless Tobacco Never [5] Allergies Allergen Reactions Cephalexin Nausea and Vomiting Lisinopril Cough Meloxicam Nausea Cosigned by Maribeth Jacobson MD at 12/03/2024 9:43 AM EDT Associated attestation - Maribeth Jacobson MD - 12/03/2024 9:43 AM EDT I attest to being involved in providing substantive part of the medical decision making in patient care. * Progress Notes - Angel Webb - 11/30/2024 9:26 AM EDT Physical Therapy Evaluation & Discharge Patient Name: Teresa Rivera Today's Date: 11/30/2024 PT Discharge Recommendations: Home with 24 hour assistance, Home health PT, Home health OT Equipment Recommended: Patient owns appropriate equipment History Teresa Rivera is 64 y.o. female admitted 11/29/2024 for work-up of Seizures ([facility]). Problem List Active Hospital Problems Diagnosis Date Noted Heart failure 11/29/2024 Seizures ([facility]) 11/29/2024 JORGE (acute kidney injury) ([facility]) 11/29/2024 Anxiety 10/25/2024 Neuropathy 10/25/2024 COPD (chronic obstructive pulmonary disease) ([facility]) 10/25/2024 Extensive stage primary small cell carcinoma of lung 09/09/2024 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[facility]) 09/09/2024 Anemia 09/06/2024 Morbid obesity with BMI of 40.0-44.9, adult ([facility]) 09/02/2024 A-fib ([facility]) 08/31/2024 Hypomagnesemia 07/08/2024 Mixed hyperlipidemia 08/24/2014 Essential hypertension 08/25/2013 Diabetes mellitus ([facility]) 08/25/2013 Procedures Past Medical History Patient has a past medical history of A-fib ([facility]), Anxiety, Brain tumor ([facility]), Chemotherapy-induced nausea and vomiting (08/28/2023), COPD (chronic obstructive pulmonary disease) ([facility]), Depression, Heart failure, Hyperlipidemia, Hypertension, Osteoarthritis, Pneumonia, Small cell lung cancer ([facility]), and Type 2 diabetes mellitus. Past Surgical History Patient has a past surgical history that includes Tubal ligation (N/A); Tympanostomy tube placement(N/A); and Brain surgery. Precautions Medical Precautions: Fall precautions, Seizure precautions Subjective Patient agreeable to PT evaluation. Participants in Care Family/Caregiver Present: No Shell Assembler: Not Applicable Presentation Oxygen Therapy: Supplemental oxygen O2 Delivery Method: Nasal cannula O2 Flow Rate (L/min): 2 L/min Lines and Tubes: Intravenous access, Telemetry Peripheral IV 11/30/24 Left;Posterior Forearm (Active) Pre-Session: Supine, Head of bed elevated, Lines intact Pre-Session Comments: RN agreeable to evaluation Post-Session: Supine, Head of bed elevated, Bed alarm (zone 1, 2, 3), RN notified, Lines intact, Call light in reach Post-Session Comments: All needs met, positioned to comfort and pressure relief, MD present Home Living/Set-up Lives With: Alone Home Type: Mobile home Home Adaptive Equipment: Rolling walker, Bedside commode, shower chair, Wheelchair-manual Home Layout: One level, Stairs to enter with rails Number of Stairs: 3 Bathroom: Tub/Shower: Walk-in shower, Built-in shower seat, Grab bars Home Living Comments: patient [place] living [place] sister [place] so that she can assist; recently passed in September 2024; reports son and daughter in law live very close, can assist if needed Prior Level of Function Receives Help From: (sister) Level of Mobility: Ambulatory- household only Mobility [place]: Independent gait with device History of Falls: Yes ADL Performance: Needs assistance (reports recently requiring assist from sister) Bathing: Needs assist Upper Body Dressing: Independent Lower Body Dressing: Independent Grooming: Independent Toileting: Independent Eating: Independent Home Management Skills: Needs assist Patient/Family Goals Return home. Objective Pain Patient endorsed headache, but did not numerically rate severity. RN notified. Patient currently being managed pharmacologically and positioned to comfort at session conclusion. Delirium Screening RASS: Alert and calm Confusion Assessment Method-ICU (CAM-ICU/PCAM-ICU) Feature 3: Altered Level of Consciousness: Negative Cognition Overall Cognitive Status: Impaired Arousal/Alertness: Appropriate responses to stimuli Mood/Behavior: Alert (drowsy; inconsistent with answers at times during discussion) Orientation Level: Oriented X4 Method of Communication: Verbal Right Upper Extremity Examination RUE Assessment: Within Functional Limits Manual Muscle Testing - RUE: Within functional limits Sensation Light Touch: Right Upper Extremity: Intact Left Upper Extremity Examination LUE ROM Assessment LUE Assessment: (shoulder to 80-90deg, distally WFL) Manual Muscle Testing - LUE Manual Muscle Testing - LUE: (shoulder 2+/5, distally 3+/5) Sensation Light Touch: Left Upper Extremity: Intact Right Lower Extremity Examination RLE ROM Assessment RLE Assessment: Within Functional Limits Manual Muscle Testing - RLE Manual Muscle Testing - RLE: Within functional limits Sensation Light Touch: Right Lower Extremity: Intact Left Lower Extremity Examination LLE Assessment: Within Functional Limits Manual Muscle Testing: Within functional limits Sensation Light Touch: Left Lower Extremity: Intact Bed Mobility Bed Mobility Exam: Rolling/Turning Level of [place]: Stand-by assist Physical/Nonphysical Assist: Verbal Cues, Minimal cues Bed Mobility Exam: Scooting/Bridging Level of [place]: Stand-by assist Physical/Nonphysical Assist: Verbal Cues, Minimal cues Bed Mobility Exam: Supine to Sit Level of [place]: Stand-by assist Physical/Nonphysical Assist: Verbal Cues, Minimal cues, HOB elevated Bed Mobility Exam: Sit to Supine Level of [place]: Stand-by assist Physical/Nonphysical Assist: Verbal Cues, Minimal cues, HOB elevated Transfers Transfer Exam: Sit to stand Level of [place]: Stand-by assist Physical/Nonphysical Assist: Verbal Cues, Minimal cues Assistive Device: Walker, rolling Transfer Exam: Stand to Sit Level of [place]: Stand-by assist Physical/Nonphysical Assist: Verbal Cues, Minimal cues Assistive Device: Walker, rolling Toilet Transfer Level of [place]: Stand-by assist Physical/Nonphysical Assist: Verbal Cues, Minimal cues Type of Transfer: Sidesteps, To bedside commode Assistive Device: Walker, rolling Balance Postural Appearance Posture: Within Functional Limits Static Sitting Balance Static Sitting-Balance Support: Right upper extremity support, Left upper extremity support, Feet supported Static Sitting-Level of Assistance: Supervision Dynamic Sitting Balance Dynamic Sitting-Balance Support: No upper extremity support, Feet supported Dynamic Sitting-Balance: Anterior/Posterior weight shifts, Lateral weight shifts Level of Assistance: Contact guard Static Standing Balance Static Standing-Balance Support: Right upper extremity support, Left upper extremity support Static Standing-Level of Assistance: Standby assist Dynamic Standing Balance Dynamic Standing-Balance Support: Right upper extremity support, Left upper extremity support Dynamic Standing-Balance: Lateral weight shifts, Anterior/Posterior weight shifts Dynamic Standing Level of Assistance: Contact guard Gait Training (13 minutes) Device: Rolling walker Apparatus: None Assistance: Contact guard assist Distance: 300ft Gait Analysis: downward gaze, mildly decreased safety awareness, decreased stride, slower gait speed, no unsteadiness or overt LOB noted Gait Training Interventions: verbal cueing regarding upright posture, scanning environment for increased safety awareness, increasing stride, and safe RW management Standardized Assessments Standardized Assessments Standardized Assessments: [facility] 6-Clicks Mobility Assessment [facility] 6-Clicks Mobility Assessment Difficulty patient has turning over in bed (including adjusting bedclothes, sheets, and blankets)?:None Difficulty patient has sitting down on and standing up from a chair with arms (wheelchair, bedside commode, etc.)?: A little Difficulty patient has moving from lying on back to sitting on the side of the bed?: A little How much help does the patient need moving to and from a bed to a chair (including a wheelchair)?: A little How much help does the patient need to walk in hospital room?: A little How much help does the patient need climbing 3-5 steps with a railing?: A little [facility] 6-Clicks Mobility Assessment Total : 19 Assessment Patient was educated for role of PT, POC, and d/c recommendations with opportunity provided for questions as needed. Based upon standardized testing, functional level at time of evaluation, clinical judgment, and patient's baseline level of functioning, no further skilled inpatient PT needs were clay ntified. PT to sign off. Re-consult if change in medical status or functional decline. Impairments: Decreased endurance, ventilation, and/or gas exchange, Pain Activity Limitations: Inability to complete ADLs independently Participation Restrictions: Self-care Activity Tolerance: Tolerates 30 min activity with multiple rests Evaluation/Treatment Tolerance: Patient limited by fatigue Barriers to Discharge: Comorbidities Eval Complexity History Profile: 1 - 2 personal factors and/or comorbidities Clinical Presentation: Stable and/or uncomplicated characteristics Clinical Decision Making: Low complexity PT Recommendations Discharge Destination: Home with 24 hour assistance, Home health PT, Home health OT Discharge Equipment: Patient owns appropriate equipment Plan Patient no longer demonstrates need for inpatient physical therapy services. Patient to be discharged from physical therapy. Written by Angel Webb on 11/30/24 at 12:04 PM. * Progress Notes - Brad Sifuentes D - 11/30/2024 9:25 AM EDT OCCUPATIONAL THERAPY EVALUATION PATIENT DATA Patient Name Teresa Rivera Session Date 11/30/2024 Total Time 27 min OT Discharge Recommendations Home with 24 hour assistance Equipment Recommendations Patient owns appropriate equipment HISTORY Teresa Rivera is 64 y.o. female admitted 11/29/2024 for work-up of Seizures ([facility]). Hospital Course 1. Seizure (CMS/HCC) 2. Acute heart failure, unspecified heart failure type ([facility]) Procedures (if applicable) Past Medical History Patient has a past medical history of A-fib ([facility]), Anxiety, Brain tumor ([facility]), Chemotherapy-induced nausea and vomiting (08/28/2023), COPD (chronic obstructive pulmonary disease) ([facility]), Depression, Heart failure, Hyperlipidemia, Hypertension, Osteoarthritis, Pneumonia, Small cell lung cancer ([facility]), and Type 2 diabetes mellitus. Past Surgical History Patient has a past surgical history that includes Tubal ligation (N/A); Tympanostomy tube placement (N/A); and Brain surgery. PRECAUTIONS Mobility Guidelines Mobility Protocol: General - Mobility Guidelines Extremity Precautions: No Extremity Precautions Other mobility precautions: No other precautions required Medical Precautions Medical Precautions: Fall precautions, Seizure precautions SUBJECTIVE PARTICIPANTS IN CARE Subjective Pt reports feeling sleepy and with severe headache throughout session Visitors Present none Shell Assembler (if applicable) N/a PRESENTATION Oxygen 2 L via Nasal Cannula Telemetry Yes Lines and Tubes Peripheral IV 11/30/24 Left;Posterior Forearm (Active) Peripheral IV Anterior;Right Forearm (Active) Pre-Session Supine, Head of bed elevated, Lines intact, Bed alarm RN agreeable to OT session. Post-Session Supine, Head of bed elevated, Bed alarm (zone 1, 2, 3), RN notified, Lines intact, Call light in reach MD present All needs met upon close of session. Bracing (if applicable) HOME LIVING/SET-UP Lives With Alone Home Type Mobile home Home Equipment Rolling walker, Bedside commode, shower chair, Wheelchair-manual Home Layout One level, Stairs to enter with rails Number of Stairs: 3 Bathroom Layout Walk-in shower, Built-in shower seat, Grab bars Additional Comments patient [place] living [place] sister [place] so that she can assist; recently passed in September 2024; reports son and daughter in law live very close, can assist if needed PRIOR LEVEL OF FUNCTION Receives help from (sister) Level of Mobility Ambulatory- household only Mobility [place] Independent gait with device History of Falls Yes ADL Performance ADL Performance: Needs assistance (reports recently requiring assist from sister) Bathing: Needs assist Upper Body Dressing: Independent Lower Body Dressing: Independent Grooming: Independent Toileting: Independent Eating: Independent Home Management Skills: Needs assist PATIENT/FAMILY GOALS Pt hopes to return home when medically ready OBJECTIVE PAIN 02/24 headache Pain management addressed by the following: * pt was positioned for comfort *pt was pre-medicated for session DELIRIUM SCREENING RASS: Alert and calm Confusion Assessment Method-ICU (CAM-ICU/PCAM-ICU) Feature 3: Altered Level of Consciousness: Negative COGNITION Overall Cognitive Status Impaired Arousal/Alertness Appropriate responses to stimuli Mood/Behavior Alert (drowsy; inconsistent with answers at times during discussion) Orientation Oriented X4 Command Following Method of Communication Verbal Additional Observations VISION Baseline Vision Current Vision (if different) RIGHT UPPER EXTREMITY EXAMINATION Range of Motion Within Functional Limits Manual Muscle Testing Within functional limits Light Touch Sensation Intact LEFT UPPER EXTREMITY EXAMINATION Range of Motion (shoulder to 80-90deg, distally WFL) Manual Muscle Testing (shoulder 2+/5, distally 3+/5) Light Touch Sensation Intact RIGHT LOWER EXTREMITY EXAMINATION Range of Motion Within Functional Limits Manual Muscle Testing Within functional limits Light Touch Sensation Intact LEFT LOWER EXTREMITY EXAMINATION Range of Motion Within Functional Limits Manual Muscle Testing Within functional limits Light Touch Sensation Intact INTERVENTIONS Bed Mobility Bed Mobility Exam: Rolling/Turning Level of [place]: Stand-by assist Physical/Nonphysical Assist: Verbal Cues, Minimal cues Bed Mobility Exam: Scooting/Bridging Level of [place]: Stand-by assist Physical/Nonphysical Assist: Verbal Cues, Minimal cues Bed Mobility Exam: Supine to Sit Level of [place]: Stand-by assist Physical/Nonphysical Assist: Verbal Cues, Minimal cues, HOB elevated Bed Mobility Exam: Sit to Supine Level of [place]: Stand-by assist Physical/Nonphysical Assist: Verbal Cues, Minimal cues, HOB elevated Transfers Transfer Exam: Sit to stand Level of [place]: Stand-by assist Physical/Nonphysical Assist: Verbal Cues, Minimal cues Assistive Device: Walker, rolling Transfer Exam: Stand to Sit Level of [place]: Stand-by assist Physical/Nonphysical Assist: Verbal Cues, Minimal cues Assistive Device: Walker, rolling Toilet Transfer Level of [place]: Stand-by assist Physical/Nonphysical Assist: Verbal Cues, Minimal cues Type of Transfer: Sidesteps, To bedside commode Assistive Device: Walker, rolling Balance Postural Appearance Posture: Within Functional Limits Static Sitting Balance Static Sitting-Balance Support: Right upper extremity support, Left upper extremity support, Feet supported Static Sitting-Level of Assistance: Supervision Dynamic Sitting Balance Dynamic Sitting-Balance Support: No upper extremity support, Feet supported Dynamic Sitting-Balance: Anterior/Posterior weight shifts, Lateral weight shifts Level of Assistance: Contact guard Static Standing Balance Static Standing-Balance Support: Right upper extremity support, Left upper extremity support Static Standing-Level of Assistance: Standby assist Dynamic Standing Balance Dynamic Standing-Balance Support: Right upper extremity support, Left upper extremity support Dynamic Standing-Balance: Lateral weight shifts, Anterior/Posterior weight shifts Dynamic Standing Level of Assistance: Contact guard Self-Care Lower Extremity Dressing Sock Level of Assistance: Dependent (pt deferred attempt, reports I'm too fat for that and reports family assisting at home) LE Dressing Where Assessed: Edge of bed Therapeutic Activity (12 minutes) Pt stood from EOB with SBA. Functional mobility performed in hallway with RW; VCs for walker management and navigating busy hallway as pt somewhat distractible by environment. No overt loss of balance noted. Slow with mobility.Returned to bed upon return to room. STANDARDIZED ASSESSMENTS [facility] 6-Click Daily Activities Help from Other: Don/Doff Regular Lower Body Clothings: A lot Help From Other: Bathing: A lot Help From Other: Toileting: Little Help From Other: Don/Doff Upper Body Clothings: Little Help From Other: Grooming: Little Help From Other: Eating Meals: None [facility] 6 Click - Daily Activities Score: 17 ASSESSMENT OT FINDINGS Pt presents with seizure activity at clinic yesterday. Pt somewhat drowsy after receiving keppra overnight. Perseverates on headache during session, RN aware. Pt navigated household distance. Decreased safety awareness demonstrated, will benefit from OT POC during current admission. Could benefit from initial 24hr assist upon discharge home as pt reports she does not want rehab at this time. Impaired ADL performance, Impaired IADL performance, Decreased endurance/ventilation/gas exchange, Impaired functional mobility, Impaired balance, Decreased upper extremity strength Evaluation/ Treatment Tolerance (if identified) Patient limited by fatigue, Patient limited by pain Rehab Potential (if identified) Good, to achieve stated therapy goals Barriers to Discharge (if identified) EVAL COMPLEXITY Occupational Profile Expanded review of medical/therapy records and additional review of physical, cognitive, or psychosocial history Performance Deficits Instrumental activities of daily living (IADLs), Activities of daily living (ADLs), Body functions, Process skills, Personal, Physical Clinical Decision Making Moderate Overall Eval Complexity Moderate OT RECOMMENDATIONS Discharge Destination Home with 24 hour assistance Discharge Equipment Patient owns appropriate equipment Recommendations for Referral to Another Service (if applicable) PLAN Planned OT Interventions IADL retraining, ADL retraining, Balance training, Bed mobility Training, Transfer training, Functional mobility, Cognitive retraining OT Frequency 1 - 3 times per week OT Duration 2 weeks OT GOALS OT GOAL DETAILS Time Frame OT Goal 1: Pt will complete sit <> stand and toilet transfers with Mod(I) using AE PRN 2 weeks OT Goal 2: Pt will complete lower body dressing with Min A 2 weeks OT Goal 3: Pt will complete grooming tasks independently while standing at sink level 2 weeks OT Goal 4: Pt will complete 2 consecutive tx sessions without requiring cues for safety 2 weeks Written by Brad Sifuentes on 11/30/24 at 12:38 PM. * Care Plan - Marie Smyth RN - 11/30/2024 8:55 AM EDT Problem: Adult Inpatient Plan of Care Goal: Plan of Care Review 11/30/2024 0853 by Marie Smyth RN Outcome: Ongoing, Progressing 11/30/2024 0852 by Marie Smyth RN Outcome: Ongoing, Progressing Flowsheets (Taken 11/30/2024 0852) Plan of Care Reviewed With: patient family Goal: Patient-Specific Goal (Individualized) 11/30/2024 0853 by Marie Smyth RN Outcome: Ongoing, Progressing 11/30/2024 0852 by Marie Smyth RN Outcome: Ongoing, Progressing Flowsheets (Taken 11/30/2024 0852) Individualized Care Needs: safety Anxieties, Fears or Concerns: none Goal: Absence of Hospital-Acquired Illness or Injury 11/30/2024852 by Marie Smyth RN Outcome: Ongoing, Progressing 11/30/2024851 by Marie Smyth RN Outcome: Ongoing, Progressing Goal: Optimal Comfort and Wellbeing 11/30/2024852 by Marie Smyth RN Outcome: Ongoing, Progressing 11/30/2024851 by Marie Smyth RN Outcome: Ongoing, Progressing Goal: Readiness for Transition of Care 11/30/2024852 by Marie Smyth RN Outcome: Ongoing, Progressing 11/30/2024851 by Marie Smyth RN Outcome: Ongoing, Progressing Problem: Fluid Volume Excess Goal: Fluid Balance Outcome: Ongoing, Progressing Intervention: Monitor and Manage Hypervolemia Flowsheets (Taken 11/30/2024852) Fluid/Electrolyte Management: fluids adjusted * Consults - Ulysses Nolasco DO - 11/30/2024 12:53 AM EDTAssociated Order(s): Consult to Neurology Consult to Neurology Consult performed by: Ulysses Nolasco DO Consult ordered by: Nisha Cordova MD General Neurology Consult Chief Complaint: Seizures Subjective History Of Present Illness Teresa Rivera is a 64 y.o. 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 She was at the [facility] on 11/29 and had an event of 2-3 minutes that the sister describes as a right head turn with tonic right upper extremity and shaking of the right lower extremity with loss of bladder with ictal cry. Patient self aborted the event andwas reported to be postictal for 10-15 minutes afterwards. Patient has no recollection of the eventand reports no aura prior to the event. Family additionally reports an event a week ago that appears to be similar to this event without loss of bladder. . She was with her granddaughter who is 6 years old who described a similar presentation to the father. The sister states she called her and the patient had garbled speech . The patient was back to baseline <30 minutes. Patient was recently admitted from 11/15 to 11/16 to after falling and striking her head and was found to have a traumatic hill bdural subarachnoid hemorrhage. She was recently discharged on 11/16. There was a plan to start Xarelto on 12/01 per chart review. Family reports that patient was on Keppra up to 2-3 weeks ago prophylactically for the tumor that was resected but she is no longer taking it as they thought it was discontinued. On exam patient is back to baseline per patient and family. She reports no recollection . Patient was not given any seizure medication prior to transfer to the ED. At the time my exam no seizure medication has been given. Recommended patient be giving a small load of Keppra 20 mg/kg and start maintenance for renal dosing with concern for seizure based on the story provided. Patient reports that she does not have a seizure history prior to the event a week ago, states normal , normal delivery, she does state that she has family members with seizures. Patient is reports that she has had no seizures as child. Labs shows a magnesium of 0.8, Creatinine 2.87, Lactate 2.3, Negative UA, CT head show Similar appearance of small amount of subdural blood beneath left parietal craniotomy flap just left of the vertex. Similar appearance of adjacent left parafalcine subdural hematoma. No new findings. Review of Systems A complete 14 point review of systems was performed and was negative except as stated in the HPI. Past Medical History She has a past medical history of A-fib (CMS/HCC), Anxiety, Brain tumor (CMS/HCC), Chemotherapy-induced nausea and vomiting (08/28/2023), COPD (chronic obstructive pulmonary disease) (CMS/HCC), Depression, Heart failure, Hyperlipidemia, Hypertension, Osteoarthritis, Pneumonia, Small cell lung cancer (CMS/HCC), and Type 2 diabetes mellitus. She has no past medical history of [...] Allergies Cephalexin, Lisinopril, and Meloxicam Medications Current Outpatient Medications Medication Instructions acetaminophen (TYLENOL) 650 mg, Oral, Every 6 hours scheduled, Under [employer] law, monthly prescriptions (30 days) can be refilled at 25 days and three-month prescriptions (90 days) at 80 days. Please contact the insurance company with questions if refills are denied. atorvastatin (LIPITOR) 40 mg, Every evening Bactrim DS 800-160 MG tablet Every 12 hours Qzuuixa-Wurphvuypau-Xmwpudjjsd (Breztri Aerosphere) 160-9-4.8 MCG/ACT aerosol 2 puffs, 2 times daily Calcium Carb-Cholecalciferol 600-10 MG-MCG tablet 1 tablet, Daily calcium carbonate (TUMS) 500 mg, 4 times daily PRN cetirizine (ZYRTEC) 10 mg, Daily estradiol (ESTRACE) 2 g, Daily ferrous sulfate 325 mg, Daily with breakfast fluconazole (Diflucan) 200 MG tablet TAKE 1 TABLET 1 TIME EACH DAY FOR 7 DAYS FLUoxetine (PROZAC) 40 mg, Daily furosemide (Lasix) 40 MG tablet TAKE 1 TABLET BY MOUTH ONCE DAILY FOR LEG SWELLLING gabapentin (NEURONTIN) 600 mg, Oral, 4 times daily glucose (TRUEPLUS GLUCOSE) 16 g, Oral, As needed hydrOXYzine HCl (ATARAX) 25 mg, 3 times daily PRN lidocaine (Xylocaine) 5 % ointment Apply 2 times a day. losartan (COZAAR) 25 mg, Daily magic butt balm (Cholestyramine) CMPD (Magic Butt) 1 Application, Topical, Every 1 hour PRN magic mouthwash BLM (FIRST-Mouthwash) suspension 15 mL, Swish & Spit, 4 times daily before meals and nightly magnesium oxide (MAG-OX) 400 mg, Oral, 2 times daily, Hold for diarrhea melatonin tablet Take 2 tablets by mouth nightly. metFORMIN (GLUCOPHAGE) 1,000 mg, 2 times daily with meals metoprolol tartrate (LOPRESSOR) 50 mg, Oral, 2 times daily montelukast (Singulair) 10 MG tablet Take 1 tablet by mouth nightly. mupirocin (Bactroban) 2 % ointment Apply on head 2 times a day nystatin (Mycostatin) 267277 UNIT/GM powder Apply on bottom 2 times a day ofloxacin (Floxin) 0.3 % otic solution Every 24 hours ondansetron (ZOFRAN) 8 mg, Oral, 2 times daily, Take on Day 4 of cycle and then take PRN pantoprazole (PROTONIX) 40 mg, Daily pen needle, diabetic 31G X 5 MM misc Use as directed with insulin pen. Probiotic, Lactobacillus, capsule 1 capsule, Oral, Daily prochlorperazine (COMPAZINE) 10 mg, Oral, Every 6 hours PRN [Paused] rivaroxaban (XARELTO) 20 mg, Daily with dinner [Paused] rOPINIRole (Requip) 1 MG tablet Take 1 tablet by mouth 2 times a day. SITagliptin (JANUVIA) 50 mg, Every morning spironolactone (ALDACTONE) 25 mg [Paused] triamterene-hydrochlorothiazide (Maxzide-25) 37.5-25 MG tablet Take 1 tablet by mouth every morning. Vitamin B-12 ER 1000 MCG tablet controlled-release 1 tablet, Daily Objective Last Recorded Vitals Vitals: 11/29/24 1521 11/29/24 1652 11/29/242017 BP: 118/75 130/68 BP Location: Right arm Patient Position: Lying Lying Pulse: 103 101 Resp: 19 23 Temp: 37.7 ??C (99.9 ??F) 37.2 ??C (98.9 ??F) TempSrc: Oral Oral SpO2: 92% 97% Weight: 121 kg (266 lb 12.1 oz) Physical Exam Constitutional: in no acute distress, appears stated age HENT: normocephalic, non-erythematous oropharynx, anicteric sclera Cardiovascular: no appreciable murmurs, gallops, or rubs Respiratory: symmetric chest expansion. non-labored breathing Gastrointestinal: abdomen is soft, not distended, non-tender Musculoskeletal: no appreciable joint swelling, no appreciable lower extremity warmth or erythema Psychiatric: appropriate mood and affect. Patient is cooperative. NEURO: Neurological: Mental Status: The patient is alert and interactive, able to follow commands. Oriented to person, place, and time, Speech: Intact Articulation, Fluent language CN: II - PERRL, Visual english: full III, IV, - EOMI V - Facial sensation intact VII - Brow raise and smile symmetrical VIII - Auditory acuity intact IX, X - Palate elevation symmetric, uvula midline XI - SCM and Trapezius strength intact XII - Tongue protrudes midline Motor: Normal bulk and tone, strength 4/5 (upper extremities) and -4/5 LLE -3/5 of RLE No appreciable reflexes B/L Biceps or Patella.. Sustained right ankle clonus. Plantar reflex down-going Sensation to light touch in all extremities is preserved and symmetric except decreased LLE No limb ataxia with [id number] Cortical: No Extinction Gait: Deferred Relevant Results Recent labs personally reviewed and interpreted and notable for anemia, elevated creatinine, hypocalcemia, hypomagnesemia, hypoalbuminemia CBC Recent Labs 11/29/24 1219 WBC 9.83 HGB 7.7* HCT 25.9* PLT 166 ANC 8.18 (H) INR ??, PTT ??, Anti-Xa ?? CMP/RFP Recent Labs 11/29/24 1219 11/29/24 1435 11/29/24 1935 NA 139 139 141 K 4.6 4.6 3.8 CL 102 102 103 CO2 22 19* 23 BUN 17 17 17 CREATININE 2.81* 2.82* 2.87* CALCIUM 7.7* 7.7* 7.9* MG 0.8* -- 1.1* PHOS -- -- 3.5 ALBUMIN 3.0* 2.9* -- BILITOT 0.5 0.4 -- ALKPHOS 122 119 -- ALT 17 18 -- AST 33 29 -- GLUCOSE 287* 193* 145* ADDITIONAL LABS iCa 4.0 (L) Lactate ?? D.Bili ?? Lab Results Component Value Date WBC 9.83 11/29/2024 HGB 7.7 (L) 11/29/2024 HCT 25.9 (L) 11/29/2024 MCV 97 11/29/2024 PLT 166 11/29/2024 Lab Results Component Value Date GLUCOSE 145 (H) 11/29/2024 CALCIUM 7.9 (L) 11/29/2024 NA 141 11/29/2024 K 3.8 11/29/2024 CO2 23 11/29/2024 CL 103 11/29/2024 BUN 17 11/29/2024 CREATININE 2.87 (H) 11/29/2024 Imaging I personally viewed the images of the CT head which did not show any worsening acute bleed, imagingappears stable on my review to prior scans The report is ( congruent ) with my interpretation XR Chest 1 View Result Date: 11/29/2024 Impression: Persistent airspace disease within the right upper lung with left basilar atelectasis and possible trace left pleural effusion. Atelectasis versus infection in the right lower lung zone laterally CRITICAL RESULT: No. COMMUNICATION: Per this written report. Preliminary report signed by Tim Ozuna DO on 11/29/2024 7:52 PM By electronically signing this report, I, the attending physician, attest that I have personally reviewed the images/data for the above examination(s) and agree with the final edited report. Drafted by Tim Ozuna DO on 11/29/2024 7:51 PM Final report signedby Mathew Mathew MD on 11/29/2024 8:[address] Head wo IV Contrast Result Date: 11/29/2024 Impression: Similar appearance of small amount of subdural blood beneath left parietal craniotomy flap just left of the vertex. Similar appearance of adjacent left parafalcine subdural hematoma. No new findings. CRITICAL RESULT: No. COMMUNICATION: Per this written report. Drafted by Abhilash Castorena MDon 11/29/2024 8:39 PM Final report signed by Abhilash Castorena MD on 11/29/2024 8:45 PM Assessment and Plan The patient is a 64-year-old female with a complex medical history, including hypertension, diabetes, small-cell lung cancer with metastases to the brain, and a recent left frontal craniotomy performed on September 05, 2024. She also experienced a recent fall 11/15 with acute left frontal vertex hemorrhage near prior tumor bed . Currently undergoing chemotherapy, she presented at the [facility] with an event suggestive of a seizure. The episode involved a right head turn, right tonic arm, and right leg shaking lasting 2-3 minutes, accompanied by loss of bladder control and an ictal cry. The patient was postictal for 10-15 minutes, and the seizure self-aborted. A similar event reportedlyoccurred about a week prior. The patient was previously prescribed Keppra, but her family reports she has not been taking it forthe past two weeks, under the assumption that it had been discontinued. Given her significant medical history and the recent seizure-like events, it is recommended to initiate treatment with Levetiracetam and conduct a routine EEG for further evaluation of her condition and to monitor for potentialmetabolic disturbances. Recommend further imaging to assess that there is no further pathology. # Focal epilepsy # metabolic disturbances # hypomagnesemia # JORGE # history of AFib # history of met Mets to the brain status post left frontal craniotomy # history of subdural hematoma Recommendation - Keppra to be renally dosed (currently 500 mg twice daily) - MRI head with and without - routine EEG - no urgent need for admission Neurology at this time, recommend further management of her metabolic disturbances and JORGE by appropriate service Code status: Prior Neurology will continue to follow. Please feel free to call with any questions. Case was discussed with Dr. Dwyer who agrees with this plan. Zev Nolasco DO PGY-2 Neurology Pager# [phone] [facility] Preferred Dictation software disclaimer: Parts of this note was generated using voice dictation software. Although proofread, there may be spelling errors, changes in dictated words, and words inserted which may have been misinterpreted by voice dictation software. Meaning of words may require interpretationin the appropriate context of the sentence and clinical situation. [1] Family History Problem Relation Name Age of Onset No Known Problems Mother No Known Problems Father Diabetes Other Fibromyalgia Other Cosigned by Florencia Dwyer MD at 12/01/2024 8:27 AM EDT Associated attestation - Florencia Dwyer MD - 12/01/2024 8:27 AM EDT I saw and evaluated the patient with the resident/fellow. I discussed the case with the resident/fellow and agree with the findings and plan as documented. * H&P - Jay Nicolas APRN, DNP - 11/29/2024 11:27 PM EDTAssociated Order(s): Consult to [facility] Consult to [facility] Consult performed by: Jay Nicolas APRN, DNP Consult ordered by: Nisha Cordova MD Reason for consult: seizures, JORGE, concern for HF Chief complaint: seizure, JORGE History Of Present Illness Teresa Rivera is a 64 y.o. female with past medical history of Stage III small- cell lung cancer with metastasis to the brain S/ P craniotomy, recent dramatic SAH & SDH, COPD on 2 L nasal cannula, HTN, Afib, HLD, recurrent UTI, type 2 DM, osteoarthritis, and anxiety/depression who presents to ED after having a seizure in the infusion clinic today. Upon a brief chart review Ms. Rivera has had a string of hospitalizations starting in last August. Upon arrival to ED she is alert and oriented. Neurology was consulted recs pending. lab work was significant for anemia, an JORGE, hypo magnesium and an elevated lactate. Imaging was unremarkable with the exception of a possible left pleural effusion versus infection on chest x-ray. Hospital medicine was consulted for admission. Upon assessment for admission, Ms. Rivera is alert and oriented x3 but sleepy with some difficultyof maintaining awakening. Otherwise afebrile and VSS. She endorses fevers, headaches, increased legswelling, and problems walking. She reports that she has never had a prior seizure. She will be admitted to Hospital Medicine for further workup and evaluation. Past Medical History Past Medical History[1] Surgical History Surgical History[2] Family History[3] Social History She reports that she quit smoking about 13 months ago. Her smoking use included cigarettes. She started smoking about 49 years ago. She has a 72.6 pack-year smoking history. She has been exposed to tobacco smoke. She has never used smokeless tobacco. She reports that she does not drink alcohol and does not use drugs. Allergies Cephalexin, Lisinopril, and Meloxicam Scheduled: Current Scheduled Medications[4] Continuous: Current Continuous Medications[5] As needed: acetaminophen, 650 mg, q6h PRN calcium carbonate, 500 mg, 4x daily PRN glucose, 15-30 grams of glucose, q15 min PRN Or dextrose 10 %, 125 mL, q15 min PRN Or dextrose 10 %, 250 mL, q15 min PRN Or glucagon (human recombinant), 1 mg, q15 min PRN hydrOXYzine HCl, 25 mg, TID PRN ipratropium-albuterol, 3 mL, q4h PRN Alum & Mag hydroxide, Zinc Oxide, Cholestyramine, 1 Application, q1h PRN magic mouthwash BLM, 15 mL, 4x daily PRN polyethylene glycol, 17 g, BID PRN prochlorperazine, 10 mg, q6h PRN sodium chloride, 10 mL, PRN Prior to Admission medications Medication Sig Start Date End Date Taking? Authorizing Provider acetaminophen (Tylenol) 325 MG tablet Take 2 tablets by mouth every 6 hours. Under [place] law, monthly prescriptions (30 days) can be refilled at 25 days and three-month prescriptions (90 days) at 80 days. Please contact the insurance company with questions if refills are denied. Patient taking differently: Take 2 tablets by mouth every 6 hours. 11/16/24 Torrie Mustafa PA atorvastatin (Lipitor) 40 MG tablet Take 1 tablet by mouth every evening. Jef Hendrickson MD Bactrim DS 800-160 MG tablet every 12 hours. 11/24/24 Jef Hendrickson MD benzonatate (Tessalon) 100 MG capsule Take 1 capsule by mouth 3 times a day as needed for cough. Donot crush or chew. Patient not taking: Reported on 11/29/2024 10/18/24 Radha Slaughter MD Xnslvyy-Pkjpjolagja-Kkvvyeqwle (Breztri Aerosphere) 160-9-4.8 MCG/ACT aerosol Inhale 2 puffs 2 (two) times a day. Jef Hendrickson MD Calcium Carb-Cholecalciferol 600-10 MG-MCG tablet Take 1 tablet by mouth daily. Jef Hendrickson MD calcium carbonate (Tums) 500 MG chewable tablet Chew 1 tablet 4 times a day as needed for indigestion or heartburn. Jef Hendrickson MD cetirizine (ZyrTEC) 10 MG tablet Take 1 tablet by mouth daily. Jef Hendrickson MD estradiol (Estrace) 0.1 MG/GM vaginal cream Insert 2 g into the vagina daily. Jef Hendrickson MD ferrous sulfate 325 (65 Fe) MG tablet Take 1 tablet by mouth daily with breakfast. Jef Hendrickson MD fluconazole (Diflucan) 200 MG tablet TAKE 1 TABLET 1 TIME EACH DAY FOR 7 DAYS 11/24/24 Jef Hendrickson MD FLUoxetine (PROzac) 40 MG capsule Take 1 capsule by mouth daily. Jef Hendrickson MD furosemide (Lasix) 40 MG tablet TAKE 1 TABLET BY MOUTH ONCE DAILY FOR LEG SWELLLING 11/26/24 Jef Hendrickson MD gabapentin (Neurontin) 600 MG tablet Take 1 tablet by mouth 4 times a day. 11/08/24 Satnam Colvin MD glucose (Trueplus Glucose) 4 g chewable tablet Chew 4 tablets as needed for low blood sugar. 10/31/24 Sasha Nuñez DO hydrOXYzine HCl (Atarax) 25 MG tablet Take 1 tablet by mouth 3 times a day as needed. Jef Hendrickson MD lidocaine (Xylocaine) 5 % ointment Apply 2 times a day. 11/08/24 Satnam Colvin MD magic butt balm (Cholestyramine) CMPD (Magic Butt) Apply 1 Application topically every 1 hour as needed for diaper rash. 10/31/24 11/30/24 Sasha Nuñez DO magic mouthwash BLM (FIRST-Mouthwash) suspension Swish and spit 15 mL 4 times a day before meals and nightly for 3 days. Patient taking differently: Swish and spit 15 mL 4 times a day as needed for mucositis. 10/18/24 Radha Slaughter MD magnesium oxide (Mag-Ox) 400 MG tablet Take 1 tablet by mouth 2 times a day. Hold for diarrhea 10/04/24 Satnam Colvin MD melatonin tablet Take 2 tablets by mouth nightly. Jef Hendrickson MD metFORMIN (Glucophage) 1000 MG tablet Take 1 tablet by mouth 2 times a day with meals. Jef Hendrickson MD metoprolol tartrate (Lopressor) 50 MG tablet Take 1 tablet by mouth 2 times a day. 11/22/24 12/22/24 Vonnie Bowens MD montelukast (Singulair) 10 MG tablet Take 1 tablet by mouth nightly. Jef Hendrickson MD mupirocin (Bactroban) 2 % ointment Apply on head 2 times a day Patient taking differently: Apply 1 Application topically 2 times a day. Apply on head 2 times a day 11/08/24 Satnam Colvin MD nystatin (Mycostatin) 840061 UNIT/GM powder Apply on bottom 2 times a day 11/08/24 Satnam Colvin MD ofloxacin (Floxin) 0.3 % otic solution 1 (one) time each day at the same time. 11/24/24 Jef Hendrickson MD ondansetron (Zofran) 8 MG tablet Take 1 tablet by mouth 2 times a day. Take on Day 4 of cycle and then take PRN 11/08/24 Satnam Colvin MD pantoprazole (Protonix) 40 MG EC tablet Take 1 tablet by mouth daily. Do not crush, chew, or split.Jef Hendrickson MD pen needle, diabetic 31G X 5 MM misc Use as directed with insulin pen. 10/31/24 Sasha Nuñez, Probiotic, Lactobacillus, capsule Take 1 capsule by mouth daily. 11/08/24 12/08/24 Satnam Colvin MD prochlorperazine (Compazine) 10 MG tablet Take 1 tablet by mouth every 6 hours as needed for nauseaor vomiting. 11/08/24 Satnam Colvin MD [Paused] rivaroxaban (Xarelto) 20 MG tablet Take 1 tablet by mouth 1 time each day with dinner. Take with food. Wait to take this until: December 01, 2024 Jef Hendrickson MD [Paused] rOPINIRole (Requip) 1 MG tablet Take 1 tablet by mouth 2 times a day. Wait to take this until your doctor or other care provider tells you to start again. Jef Hendrickson MD SITagliptin (Januvia) 50 MG tablet Take 1 tablet by mouth every morning. Jef Hendrickson MD spironolactone (Aldactone) 25 MG tablet Take 1 tablet by mouth. 7/12/25 8/11/25 ProviderJef MD [Paused] triamterene-hydrochlorothiazide (Maxzide-25) 37.5-25 MG tablet Take 1 tablet by mouth every morning. Wait to take this until your doctor or other care provider tells you to start again. Jef Hendrickson MD Vitamin B-12 ER 1000 MCG tablet controlled-release Take 1 tablet by mouth Daily. Jef Hendrickson MD Labs (in last 24 hours): CBC: Lab Results Component Value Date WBC 9.83 11/29/2024 RBC 2.67 (L) 11/29/2024 HGB 7.7 (L) 11/29/2024 HCT 25.9 (L) 11/29/2024 PLT 166 11/29/2024 MCV 97 11/29/2024 MCH 28.8 11/29/2024 MCHC 29.7 (L) 11/29/2024 RDW 19.9 (H) 11/29/2024 NRBC 0.0 11/29/2024 Differential: Lab Results Component Value Date WBC 9.83 11/29/2024 NEUTOPHILPCT 83 11/29/2024 LYMPHOPCT 8 11/29/2024 MONOPCT 6 11/29/2024 EOSPCT 2 11/29/2024 Coagulation: No results found for: INR , PT , PTT , CLFGN Renal: Lab Results Component Value Date NA 141 11/29/2024 K 3.8 11/29/2024 CL 103 11/29/2024 CO2 23 11/29/2024 BUN 17 11/29/2024 CREATININE 2.87 (H) 11/29/2024 GLUCOSE 145 (H) 11/29/2024 CALCIUM 7.9 (L) 11/29/2024 MG 1.1 (L) 11/29/2024 PHOS 3.5 11/29/2024 Liver: Lab Results Component Value Date AST 29 11/29/2024 ALT 18 11/29/2024 BILITOT 0.4 11/29/2024 Glucose: No results found for: PGLU Lab Results Component Value Date HGBA1C 6.3 (H) 09/02/2024 Microbiology: Results No results found for the last 48 hours. Imaging (in last 24 hours): XR Chest 1 View Result Date: 11/29/2024 Persistent airspace disease within the right upper lung with left basilar atelectasis and possible trace left pleural effusion. Atelectasis versus infection in the right lower lung zone laterally CRITICAL RESULT: No. COMMUNICATION: Per this written report. Preliminary report signed by Tim Ozuna DO on 11/29/2024 7:52 PM By electronically signing this report, I, the attending physician, [email or web address] I have personally reviewed the images/data for the above examination(s) and agree with the final edited report. Drafted by Tim Ozuna DO on 11/29/2024 7:51 PM Final report signed by Mathew Mathew MD on 11/29/2024 8:[address] Head wo IV Contrast Result Date: 11/29/2024 Similar appearance of small amount of subdural blood beneath left parietal craniotomy flap just left of the vertex. Similar appearance of adjacent left parafalcine subdural hematoma. No new findings.CRITICAL RESULT: No. COMMUNICATION: Per this written report. Drafted by Abhilash Castorena MD on 11/29/2024 8:39 PM Final report signed by Abhilash Castorena MD on 11/29/2024 8:45 PM EKG/Echo: Encounter Date: 11/19/24 ECG Adult Result Value EKG DIAGNOSIS CLASS Abnormal Ventricular Rate 148 Atrial Rate 340 QRSD Interval 90 QT Interval 298 QTC Interval 467 P [place] 110 R [place] 16 T Wave [place] 82 Diagnosis Atrial flutter with variable AV block Diagnosis Nonspecific ST and T wave abnormality Diagnosis Abnormal ECG Diagnosis Compared to last ECG Diagnosis atrial flutter has replaced sinus rhythm Diagnosis Diagnosis Confirmed by Leeroy Herbert ([id number]) on 11/20/2024 12:49:05 PM *Note: Due to a large number of results and/or encounters for the requested time period, some results have not been displayed. A complete set of results can be found in Results Review. No echocardiogram results found for the past 12 months Last Recorded Vitals Vitals: 11/29/24 1521 11/29/24 1652 11/29/24 2018 11/30/24 0055 BP: 118/75 130/68 97/54 BP Location: Right arm Right arm Patient Position: Lying Lying Lying Pulse: 103 101 100 Resp: 19 23 25 Temp: 37.7 ??C (99.9 ??F) 37.2 ??C (98.9 ??F) 37.7 ??C (99.9 ??F) TempSrc: Oral Oral Oral SpO2: 92% 97% 97% Weight: 121 kg (266 lb 12.1 oz) Intake/Output Summary (Last 24 hours) at 11/30/2024 0130 Last data filed at 11/29/2024 1930 Gross per 24 hour Intake -- Output 550 ml Net -550 ml Admission weight: Weight: 121 kg (266 lb 12.1 oz) Review of Systems Constitutional: Positive for activity change, chills and fatigue. Negative for diaphoresis and unexpected weight change. HENT: Negative. Eyes: Negative. Respiratory: Positive for cough. Cardiovascular: Positive for leg swelling. Gastrointestinal: Negative. Endocrine: Negative. Genitourinary: Negative. Musculoskeletal: Positive for gait problem. Allergic/Immunologic: Negative. Neurological: Positive for headaches. Negative for dizziness, seizures, syncope, weakness and light-headedness. Hematological: Negative. Psychiatric/Behavioral: Negative. Physical Exam Constitutional: Appearance: She is obese. She is ill-appearing. HENT: Head: Normocephalic and atraumatic. Right Ear: External ear normal. Left Ear: External ear normal. Nose: Nose normal. Mouth/Throat: Mouth: Mucous membranes are moist. Pharynx: Oropharynx is clear. Eyes: Extraocular Movements: Extraocular movements intact. Conjunctiva/sclera: Conjunctivae normal. Pupils: Pupils are equal, round, and reactive to light. Cardiovascular: Rate and Rhythm: Tachycardia present. Rhythm irregular. Pulses: Normal pulses. Heart sounds: Normal heart sounds. Pulmonary: Effort: Pulmonary effort is normal. Breath sounds: Normal breath sounds. Abdominal: General: There is distension. Palpations: Abdomen is soft. Musculoskeletal: General: Normal range of motion. Cervical back: Normal range of motion and neck supple. Right lower leg: Edema present. Left lower leg: Edema present. Skin: General: Skin is warm and dry. Capillary Refill: Capillary refill takes 2 to 3 seconds. Neurological: Mental Status: She is alert, oriented to person, place, and time and easily aroused. Mental status is at baseline. Motor: Weakness present. Comments: Mild right-sided weakness Psychiatric: Attention and Perception: Perception normal. She is inattentive. Mood and Affect: Mood normal. Affect is labile. Speech: Speech normal. Behavior: Behavior is cooperative. Thought Content: Thought content normal. Cognition and Memory: Memory normal. Cognition is impaired. Judgment: Judgment normal. 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CMS/HCC) Anemia Anxiety COPD (chronic obstructive pulmonary disease) (CMS/HCC) Diabetes mellitus (CMS/HCC) Essential hypertension Mixed hyperlipidemia Hypomagnesemia Neuropathy A-fib (CMS/HCC) Heart failure JORGE (acute kidney injury) (CMS/HCC) #Seizure - Onset: 11/29, lasted for: unknown, resolved with/without intervention: none - Possible etiology: prior surgery, chemo, infection, medications, previous TBI, and strokes - lactate: 5.7 -> 2.3 - CT head: no acute/new findings, similar appearance of small amount of subdural blood beanth left parietal craniotomy flap and adjacent left parafalcine subdural hematoma - neurology consulted, recommendations pending Plan: - UDS, Ammonia - infectious work up pending - Consulted neurology for additional recs - Seizure precautions - Ativan prn for continued seizure activity #Acute Kidney Injury - Baseline creatinine 0.61-0.94; 2.87 on admission - ED gave 1 L LR Plan: - UA and urine lytes; consider renal US - Gentle fluid resuscitation - Renally dose medications; avoid nephrotoxins - Strict I&O - Renal function panel daily #Concern for HFpEF exacerbation - followed by cardiology - increased leg swelling - Etiology of Exacerbation: ischemia, infection, increased salt intake, excess fluid, use of NSAIDs, cardiac stress, HTN, Arrhythmia, Anemia, JORGE, Substance use, PE, - Symptoms: shortness of breath, leg swelling, - [place] Heart Failure Risk Score: 5 pts, 39.8% risk - Temp: 37.7 ??C (99.9 ??F) (Oral), HR: 100, BP: 97/54, RR: 25, SpO2: 97% - WBC: 9.83, H&H: 7.7 (L)/ 25.9 (L), Plt: 166, MCV: 97, MCHC: 29.7 (L), ANC: 8.18 (H) - Na: 141, K: 3.8, Cl: 103, CO2: 23, sCr: 2.87 (H), A, BUN: 17, eGFR: 17.8, Ca: 7.9 (L), M.1 (L), Phos: 3.5 - Total Protein: 6.5, Albumin: 2.9 (L), T.Bili: 0.4, AST: 29, ALT: 18, Alk Phos: 119, - BNP:1,813 pg/mL (11/29 1934) - last echo, 10/2023: EF 55-60%, RA & RV dilated - CXR: Persistent air space disease with right upper lobe lung with left basilar atelectasis and possible trace left pleural effusion. 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 s/p craniotomy and WBRT - Chemo: Carboplatin/Etopside daily, Atezolizumab q.21 days - last chemo: 11/10/24 - Radiation Therapy: 10/24/24-11/07/24, 3,000 cGY Plan - consult med onc in AM #Afib - hx of typical aflutter s/p CTI flutter ablation - home meds: Xarelto, on hold per NSGY for recent SAH/SHD Plan - continue BB as above - hold AC #Type II DM - glucose: 145 - Last A1c, 08/2024: 6.3 - home meds: metformin, Januvia Plan - hold oral agents - ISS per protocol - FSBS per protocol - 2CC diet when medically appropriate #Anemia - hgb 7.7, baseline 7.0-9.0, monitor, transfuse for hgb < 7.0 #HTN - meds as above #HLD - atorvastatin, hold, resume when medically appropriate #COPD on 2L NC- no signs of exacerbation, home meds: Breztri, cetirizine, montelukast, continue + duo nebs prn #GERD - protonix, tums #Chronic hypomagnesemia - Mag oxide #Anxiety/Depression - hydroxyzine, fluoxetine #Neuropathy/Chronic Pain -gabapentin #Chemo induced Nausea and Vomiting - Zofran and Compazine #Code Status: Full Code Diet Adult diet Diet texture: Regular; Carbohydrate restriction: Consistent Carb 2 (80 gm max/meal); Sodium restriction: 2,000 mg Na DVT prophylaxis Prophylactic Lovenox [1] Past Medical History: Diagnosis Date A-fib (CMS/HCC) Anxiety Brain tumor (CMS/HCC) Chemotherapy-induced nausea and vomiting 08/28/2023 COPD (chronic obstructive pulmonary disease) ([facility]) Depression Heart failure Hyperlipidemia Hypertension Osteoarthritis Pneumonia Small cell lung cancer (CMS/HCC) Type 2 diabetes mellitus [2] Past Surgical History: Procedure Laterality Date BRAIN SURGERY TUBAL LIGATION N/A Tubal Ligation from [facility] TYMPANOSTOMY TUBE PLACEMENT N/A Ear Surgery Eustachian Tube from [facility] [3] Family History Problem Relation Name Age of Onset No Known Problems Mother No Known Problems Father Diabetes Other Fibromyalgia Other [4] calcium-vitamin D, 1 tablet, Oral, Daily cetirizine, 10 mg, Oral, Daily cyanocobalamin, 1,000 mcg, Oral, Daily ferrous sulfate, 324 mg, Oral, Daily with breakfast FLUoxetine, 40 mg, Oral, Daily gabapentin, 600 mg, Oral, 4x daily insulin lispro, 0-5 Units, Subcutaneous, TID with meals insulin lispro, 0-3 Units, Subcutaneous, Twice at night lactobacillus acidophilus, 1 packet, Oral, Daily levETIRAcetam, 500 mg, Oral, BID magnesium oxide, 400 mg, Oral, BID magnesium sulfate, 4 g, Intravenous, Once melatonin, 6 mg, Oral, Nightly metoprolol tartrate, 50 mg, Oral, BID Tiotropium [place] Monohydrate, 2 puff, Inhalation, Daily And mometasone-formoterol, 2 puff, Inhalation, BID montelukast, 10 mg, Oral, Nightly mupirocin, 1 Application, Topical, BID nystatin, , Topical, BID ondansetron, 8 mg, Oral, BID pantoprazole, 40 mg, Oral, Daily [Held by provider] rivaroxaban, 20 mg, Oral, Daily with dinner sodium chloride, 10 mL, Intravenous, q12h [5] lactated Ringer's, 100 mL/hr * Care Plan - Janette Yoon RN - 11/29/2024 3:09 PM EDT Problem: Fall Injury Risk Goal: Absence of Fall and Fall-Related Injury Intervention: Promote Injury-Free Environment Flowsheets (Taken 12/02/2024936) Safety Promotion/Fall Prevention: activity supervised assistive device/personal items within reach clutter-free environment maintained fall prevention program maintained Problem: Fall Injury Risk Goal: Absence of Fall and Fall-Related Injury Outcome: Ongoing, Progressing Intervention: Identify and Manage Contributors Flowsheets (Taken 12/02/2024 09) Self-Care Promotion: independence encouraged BADL personal objects within reach Intervention: Promote Injury-Free Environment Flowsheets (Taken 12/02/2024936) Safety Promotion/Fall Prevention: activity supervised assistive device/personal items within reach clutter-free environment maintained fall prevention program maintained * ED Provider Notes - Marcelo Joseph MD - 11/29/2024 3:09 PM EDT Images from the original note were not included. - HPI Chief Complaint Patient presents with Seizures Patient is a 64 yo female with PMH of T2DM, HTN, and SCLC with mets, s/p brain mass resection and radiation. Still undergoing chemotherapy. Was seen for her infusion today, where she was found to have an JORGE and low magnesium (0.8). Repleted in clinic. Patient has been dealing with focal seizures of her right leg. Fell a couple weeks ago and has noticed some possible seizures since then. Focal seizures were going on prior to that. Witnessed seizure prior to infusion today. Sister said it started in her leg and went up to her arm, then generalized; lasted 2-3 min. Patient reportedly lost control of her bladder during the incident. Patient was reportedly post-ictal for 10 min after - confused, not talking appropriately, etc. Denies alcohol or drug use. Patient History Past Medical History[1] Surgical History[2] Family History[3] Social History[4] Allergies: Allergies[5] Physical Exam ED Triage Vitals [11/29/24 1521] Temp Heart Rate Resp BP 37.7 ??C (99.9 ??F) 103 19 118/75 SpO2 Temp Source Heart Rate Source Patient Position 92 % Oral -- Lying BP Location FiO2 (%) -- -- Physical Exam Vitals and nursing note reviewed. Constitutional: General: She is not in acute distress. Appearance: She is ill-appearing. HENT: Head: Normocephalic. Comments: No facial swelling Nose: Nose normal. Mouth/Throat: Mouth: Mucous membranes are moist. Pharynx: Oropharynx is clear. Eyes: Extraocular Movements: Extraocular movements intact. Cardiovascular: Rate and Rhythm: Normal rate. Pulmonary: Effort: Pulmonary effort is normal. No respiratory distress. Breath sounds: Normal air entry. Wheezing (Wheezes more prominent on the R) present. Comments: Speaking full sentences. Symmetric chest rise Abdominal: General: There is no distension. Tenderness: There is no abdominal tenderness. Musculoskeletal: General: No deformity. Normal range of motion. Cervical back: Normal range of motion. Right lower leg: Edema present. Left lower leg: Edema present. Comments: Atraumatic, moves all extremities spontaneously Neurological: General: No focal deficit present. Mental Status: She is alert and oriented to person, place, and time. Mental status is at baseline. Comments: Awake Psychiatric: Mood and Affect: Mood normal. Behavior: Behavior normal. [place] Coma Scale Score: 15 ED Course & MDM - Assessment: 64 y.o. female presents to ED with complaint of a seizure before her chemotherapy infusion today after she was found to have low magnesium and an elevated creatinine. It should be noted that the chronic conditions includes T2DM, HTN, SCLC with mets, which currently is not at goal therapy. This compl icates the clinical picture because it Comorbidities: may be exacerbating symptoms, increases the amount and complexity of data to be reviewed, complicates the clinical workup, and increases the riskfor morbidity Differential Diagnosis: generalized tonic/clonic seizure, focal seizure, electrolyte abnormality, dehydration, PE, pneumonia, heart failure exacerbation, JORGE, UTI In order to fully explore the differential diagnosis the following treatments and tests were ordered: All Other Orders Ordered Status Ordering Provider 11/29/242255 Consult to [facility] Once Specialty: Internal Medicine Provider: (Not yet assigned) Completed MARCELO JOSEPH 11/29/242255 ED to floor bed request Once Completed MARCELO JOSEPH 11/29/242118 Comprehensive Urine Drug Screening, Qualitative Assay, >= 27 Drug Classes STAT In process MARCELO JOSEPH 11/29/242108 Consult to Neurology Once Specialty: Neurology Provider: (Not yet assigned) Acknowledged MARCELO JOSEPH 11/29/24 194 BNP STAT Final result THE, NISHA Luís 11/29/241848 Blood gas panel, venous STAT Final result THE, NISHA S 11/29/24 193 BMP STAT Final result THE, NISHA S 11/29/241848 Vital Signs Every 1 hour Acknowledged THE, NISHA S 11/29/241848 Vital signs Per unit protocol Acknowledged THE, NISHA S 11/29/241848 XR Chest 1 View One time imaging Final result THE, NISHA S 11/29/241848 Magnesium STAT Final result THE, NISHA S 11/29/241848 Phosphorus STAT Final result THE, NISHA S 11/29/241848 Urinalysis with reflex microscopic AND reflex culture (IF UTI SUSPECTED) STAT Preliminary result THE, NISHA S 11/29/241848 Urinalysis with reflex microscopic (Culture NOT Included) PROCEDURE ONCE Final result THE, NISHA S 11/29/241848 Urine Meek Panel PROCEDURE ONCE Preliminary result THE, NISHA S 11/29/241848 CT Head wo IV Contrast Once Final result THE, NISHA S 11/29/24 1528 Initiate contact isolation Continuous Acknowledged THE, NISHA S 11/30/24128 POCT Glucose - PRN As needed Comments: Check POC BG at 0300 if patient received correction insulin or was hypoglycemic at bedtime. Ordered JAY NICOLAS 11/30/24 012 POCT Glucose As needed Comments: Recheck POC BG 15 minutes after any hypoglycemia treatment. Continue until POC BG is greater than 100 mg/dL. Ordered JAY NICOLAS ED Medication Administration from 11/29/2024 1442 to 11/30/2024 0129 Date/Time Order Dose Route Action 11/29/2024 2233 EDT acetaminophen (Tylenol) tablet 1,000 mg 1,000 mg Oral Given 11/29/2024 2234 EDT magnesium sulfate IVPB 4 g 4 g Intravenous New Bag 11/29/2024 2317 EDT lactated Ringer's infusion 300 mL 300 mL Intravenous New Bag 11/29/2024 2358 EDT levETIRAcetam (Keppra) injection 2,500 mg 2,500 mg Intravenous Given 11/30/2024 0129 EDT rivaroxaban (Xarelto) tablet 20 mg -- Oral Held by provider ED Course as of 11/30/244 ThuNov 29, 2024 181 Patient was hemodynamically stable, no acute respiratory distress. Patient did not endorse anypain. [CJ] 2036 XR Chest 1 View Chest XR was unremarkable for any signs of consolidation or rib fractures. Some haziness in the lower left lung. Final read showed some chronic airspace disease and left pleural effusion. See read for further details [CJ] 2036 CT Head wo IV Contrast CT independently reviewed by me and showed no acute pathology. See final read for further details about some chronic findings [CJ] 2036 Creatinine(!): 2.87 Significant JORGE compared to value a week ago [CJ] 2036 Magnesium(!): 1.1 Magnesium improving after repletion in clinic. Will continue to replete [CJ] 2036 Urinalysis with reflex microscopic AND reflex culture (IF UTI SUSPECTED) U/A was unremarkable for any signs consistent with an urinary tract infection or noteworthy hematuria, ketonuria, or glucosuria. [CJ] 2045 N-Terminal, PROBNP, Plasma(!): 1,813 Increased BNP, concerning for active heart failure [CJ] 2046 Blood gas panel, venous(!) No significant acidosis, hypercarbia, or significant electrolyte abnormalities [CJ] 2055 Will consult neurology for further recs given her complicated PMH and new onset general tonic/clonic seizure with a hx of focal seizures. They agreed to come see her. Recs include a keppra load,routine EEG, and an MRI head w/wo [CJ] ThuNov 30, 2024 0019 Consulted hospital medicine for admission given her possible heart failure exacerbation with possible fluid overload. Her electrolyte abnormalities and high BNP further support this. Additionally, neurology needs to do further workup [CJ] ED Course User Index [CJ] Marcelo Joseph MD Social Determinates of Health Risks (including Economic Stability, Education and level of understanding, Healthcare access and quality and concerning social factors): Poor health literacy Ultimately, this patient was Was admitted (Admission) There were no encounter diagnoses.. Patient believed to require admission for the listed diagnoses. The Internal Medicine service was consulted for admission and was agreeable to admit toAcute Floor (Med/Surg). ED Prescriptions None Disposition Admit Admitting/Attending Physician: NILSON JIMENEZ [[id number]] Provider Care Team: WENCESLAO [[id number]] Are they the primary team?: Yes [1] - [1] Past Medical History: Diagnosis Date A-fib (CMS/HCC) Anxiety Brain tumor (CMS/HCC) Chemotherapy-induced nausea and vomiting 08/28/2023 COPD (chronic obstructive pulmonary disease) ([facility]) Depression Heart failure Hyperlipidemia Hypertension Osteoarthritis Pneumonia Small cell lung cancer (CMS/HCC) Type 2 diabetes mellitus [2] Past Surgical History: Procedure Laterality Date BRAIN SURGERY TUBAL LIGATION N/A Tubal Ligation from [facility] TYMPANOSTOMY TUBE PLACEMENT N/A Ear Surgery Eustachian Tube from [facility] [3] Family History Problem Relation Name Age [...] Cephalexin Nausea and Vomiting Lisinopril Cough Meloxicam Nausea Marcelo Joseph MD Resident 11/30/24 0224 Cosigned by Nisha Cordoav MD at 11/30/2024 3:44 PM EDT Associated attestation - The, Nisha Staley MD - 11/30/2024 3:44 PM EDT I saw and evaluated the patient with the resident/fellow. I discussed the case with the resident/fellow and agree with the findings and plan as documented. * ED Triage Notes - Carmencita Harrington RN - 11/29/2024 3:09 PM EDT [facility] reports that patient was at her chemo appt today when she had a seizure. Patient had only had a PIV placed and an infusion of magnesium when this occurred, she had not started her chemo infusion. documented in this encounter Plan of Treatment Upcoming Encounters Date Type Department Care Team (Late st Contact Info) Description 01/05/2025 1:00 PM EDT Office Visit [facility] [address] [place] [address] Lia Barnes, MATERIAL CONTROL MANAGER [address] [facility] [address] [place] [address] 01/10/2025 9:00 AM EDT Clinical Support [facility] [address] [place] [address] 01/10/2025 9:40 AM EDT Office Visit [facility] [address] [place] [address] Satnam Colvin MD [address] Nuria [address] [facility] [address] [place] [address] 01/10/2025 12:00 PM EDT Appointment [facility] [address] [place] [address] 01/11/2025 3:30 PM EDT Appointment [facility] [address] [place] [address] 01/12/2025 3:30 PM EDT Appointment [facility] Infusion Clinic [address] [place] [id number] 01/19/2025 9:20 AM EDT Appointment [facility] Radiology [address] [place] [address] 01/19/2025 10:45 AM EDT [facility] Visit [facility] [address], 1[address] [place] [address] Abhilash Bangura MD [address] [place] [address] 01/26/2025 4:30 PM EDT Office Visit [facility] [address] [place] [address] Lia Barnes, MATERIAL CONTROL MANAGER [address] [place] [address] 03/08/2025 1:00 PM EDT Office Visit [facility] Spencer Wenceslao [address] [place] [phone] Teresita Oconnell MD [address] [place] [address] Pending Results Name Type Priority Associated Diagnoses Date /Time AFB Culture, Non Respiratory Source and Acid Fast Stain Microbiology Routine 12/06/2024 6:48 PM EDT Freeze and Hold Microbiology Routine 025 6:48 PM EDT documented as of this encounter Procedures Procedure Name Priority Date/Time Associated Diagnosis Comments POCT GLUCOSE METER UNSOLICITED RESULTS Routine 12/10/2024 4:33 PM EDT POCT GLUCOSE METER UNSOLICITED RESULTS Routine 12/10/2024 11:21 AM EDT POCT GLUCOSE METER UNSOLICITED RESULTS Routine 12/10/2024 8:00 AM EDT BASIC METABOLIC PANEL, PLASMA Routine 12/10/2024 7:06 AM EDT POCT GLUCOSE METER UNSOLICITED RESULTS Routine 12/09/2024 7:23 PM EDT POCT GLUCOSE METER UNSOLICITED RESULTS Routine 12/09/2024 5:34 PM EDT POCT GLUCOSE METER UNSOLICITED RESULTS Routine 12/09/2024 12:21 PM EDT POCT GLUCOSE METER UNSOLICITED RESULTS Routine 12/09/2024 8:57 AM EDT VANCOMYCIN, RANDOM, PLASMA Routine 12/09/2024 3:52 AM EDT BASIC METABOLIC PANEL, PLASMA STAT Add-on 12/09/2024 3:52 AM EDT POCT GLUCOSE METER UNSOLICITED RESULTS Routine 12/08/2024 8:06 PM EDT POCT GLUCOSE METER UNSOLICITED RESULTS Routine 12/08/2024 5:28 PM EDT WILBUR AURIS SURVEILLANCE BY PCR Routine 12/08/2024 3:32 PM EDT INSERT PERIPHERAL IV STAT 12/08/2024 3:30 PM EDT POCT GLUCOSE METER UNSOLICITED RESULTS Routine 12/08/2024 12:42 PM EDT POCT GLUCOSE METER UNSOLICITED RESULTS Routine 12/08/2024 9:02 AM EDT ECHO, ADULT TRANSTHORACIC COMPLETE W/ STRAIN Routine 12/08/2024 8:59 AM EDT VANCOMYCIN, RANDOM, PLASMA Routine 12/08/2024 3:37 AM EDT POCT GLUCOSE METER UNSOLICITED RESULTS Routine 12/07/2024 8:42 PM EDT POCT GLUCOSE METER UNSOLICITED RESULTS Routine 12/07/2024 5:36 PM EDT POCT GLUCOSE METER UNSOLICITED RESULTS Routine 12/07/2024 12:12 PM EDT POCT GLUCOSE METER UNSOLICITED RESULTS Routine 12/07/2024 8:16 AM EDT CBC WITH AUTO DIFFERENTIAL Routine 12/07/2024 3:51 AM EDT MAGNESIUM, PLASMA Routine 12/07/2024 3:5 1 AM EDT VANCOMYCIN, RANDOM, PLASMA Routine 12/07/2024 3:51 AM EDT BASIC METABOLIC PANEL, PLASMA Routine 12/07/2024 3:51 AM EDT POCT GLUCOSE METER UNSOLICITED RESULTS Routine 12/06/2024 7:54 PM EDT FUNGAL CULTURE, CEREBROSPINAL FLUID (CSF) AND EMIYL INK Routine 12/06/2024 6:48 PM EDT FREEZE AND HOLD Routine 12/06/2024 6:48 PM EDT AFB CULTURE, NON RESPIRATORY SOURCE AND ACID FAST STAIN Routine 12/06/2024 6:48 PM EDT CRYPTOCOCCAL ANTIGEN, CSF Routine 12/06/2024 6:48 PM EDT HERPES SIMPLEX VIRUS (HSV) BY PCR Routine 12/06/2024 6:48 PM EDT CEREBROSPINAL FLUID (CSF) CULTURE AND GRAM STAIN Routine 12/06/2024 6:48 PM EDT POCT GLUCOSE METER UNSOLICITED RESULTS Routine 12/06/2024 6:00 PM EDT IR LUMBAR PUNCTURE Routine 12/06/2024 4: 24 PM EDT CSF NOTIFICATION ORDER - PERFORMABLE Routine 12/06/2024 4:21 PM EDT CSF PANEL Routine 12/06/2024 4:21 PM EDT CSF, PATHOLOGIST INTERPRETATION Routine 12/06/2024 4:21 PM EDT CSF CELL COUNT W/ MANUAL DIFFERENTIAL Routine 12/06/2024 4:21 PM EDT LACTATE DEHYDROGENASE TOTAL, BODY FLUID (SO) Routine 12/06/2024 4:21 PM EDT ENTEROVIRUS QUANTITATIVE PCR, CSF (SO) Routine 12/06/2024 4:21 PM EDT VARICELLA ZOSTER DNA, QUANTITATIVE CSF Routine 12/06/2024 4:21 PM EDT CMV DNA, QUANTITATIVE, PCR CSF Routine 12/06/2024 4:21 PM EDT WEST NILE VIRUS ANTIBODIES, IGG AND IGM BY SONI, CSF (SO) Routine 12/06/2024 4:21 PM EDT TOTAL PROTEIN, CSF Routine 12/06/2024 4: 21 PM EDT GLUCOSE, CSF Routine 12/06/2024 4:21 PM EDT NON-GYNECOLOGIC CYTOLOGY Routine 12/06/2024 4:21 PM EDT POCT GLUCOSE METER UNSOLICITED RESULTS Routine 12/06/2024 12:23 PM EDT POCT GLUCOSE METER UNSOLICITED RESULTS Routine 12/06/2024 8:33 AM EDT CBC W/O DIFFERENTIAL Routine 12/06/2024 3:34 AM EDT MAGNESIUM, PLASMA Routine 12/06/2024 3:3 4 AM EDT VANCOMYCIN, RANDOM, PLASMA Routine 12/06/2024 3:34 AM EDT BASIC METABOLIC PANEL, PLASMA Routine 12/06/2024 3:34 AM EDT POCT GLUCOSE METER UNSOLICITED RESULTS Routine 12/05/2024 9:34 PM EDT POCT GLUCOSE METER UNSOLICITED RESULTS Routine 12/05/2024 5:21 PM EDT VANCOMYCIN, PEAK, PLASMA Routine 12/05/2024 12:14 PM EDT POCT GLUCOSE METER UNSOLICITED RESULTS Routine 12/05/2024 11:41 AM EDT POCT GLUCOSE METER UNSOLICITED RESULTS Routine 12/05/2024 8:07 AM EDT CBC W/O DIFFERENTIAL Routine 12/05/2024 2:58 AM EDT MAGNESIUM, PLASMA Routine 12/05/2024 2:5 8 AM EDT BASIC METABOLIC PANEL, PLASMA Routine 12/05/2024 2:58 AM EDT ECG ADULT STAT 12/04/2024 11:16 PM EDT POCT GLUCOSE METER UNSOLICITED RESULTS Routine 12/04/2024 7:57 PM EDT VANCOMYCIN, RANDOM, PLASMA Routine 12/04/2024 6:10 PM EDT POCT GLUCOSE METER UNSOLICITED RESULTS Routine 12/04/2024 5:25 PM EDT POCT GLUCOSE METER UNSOLICITED RESULTS Routine 12/04/2024 12:32 PM EDT POCT GLUCOSE METER UNSOLICITED RESULTS Routine 12/04/2024 8:39 AM EDT CBC W/O DIFFERENTIAL Routine 12/04/2024 1:30 AM EDT C-REACTIVE PROTEIN, PLASMA Routine 12/04/2024 1:30 AM EDT BASIC METABOLIC PANEL, PLASMA Routine 12/04/2024 1:30 AM EDT POCT GLUCOSE METER UNSOLICITED RESULTS Routine 12/03/2024 8:11 PM EDT POCT GLUCOSE METER UNSOLICITED RESULTS Routine 12/03/2024 5:31 PM EDT POCT GLUCOSE METER UNSOLICITED RESULTS Routine 12/03/2024 12:26 PM EDT POCT GLUCOSE METER UNSOLICITED RESULTS Routine 12/03/2024 8:28 AM EDT XR CHEST 1 VIEW Routine 12/03/2024 6:05 AM EDT LACTATE, VENOUS Routine 12/03/2024 12:30 AM EDT PROCALCITONIN, PLASMA Routine 12/03/2024 12:30 AM EDT BLOOD CULTURE (AEROBIC/ANAEROBIC SET) Routine 12/03/2024 12:30 AM EDT BLOOD CULTURE (AEROBIC/ANAEROBIC SET) Routine 12/03/2024 12:30 AM EDT CBC W/O DIFFERENTIAL Routine 12/03/2024 12:30 AM EDT MAGNESIUM, PLASMA Add-On 12/03/2024 12: 30 AM EDT BASIC METABOLIC PANEL, PLASMA Routine 12/03/2024 12:30 AM EDT METHICILLIN RESISTANT STAPHYLOCOCCUS AUREUS (MRSA) BY PCR Routine 12/03/2024 12:15 AM EDT POCT GLUCOSE METER UNSOLICITED RESULTS Routine 12/02/2024 8:35 PM EDT POCT GLUCOSE METER UNSOLICITED RESULTS Routine 12/02/2024 5:51 PM EDT POCT GLUCOSE METER UNSOLICITED RESULTS Routine 12/02/2024 11:49 AM EDT POCT GLUCOSE METER UNSOLICITED RESULTS Routine 12/02/2024 6:46 AM EDT POCT GLUCOSE METER UNSOLICITED RESULTS Routine 12/02/2024 5:39 AM EDT BASIC METABOLIC PANEL, PLASMA Routine 12/02/2024 3:44 AM EDT MR HEAD W AND WO IV CONTRAST STAT 12/02/2024 12:30 AM EDT POCT GLUCOSE METER UNSOLICITED RESULTS Routine 12/01/2024 9:47 PM EDT ECG ADULT STAT 12/01/2024 7:12 PM EDT RESPIRATORY CULTURE AND GRAM STAIN Routine 12/01/2024 6:07 PM EDT POCT GLUCOSE METER UNSOLICITED RESULTS Routine 12/01/2024 5:13 PM EDT POCT GLUCOSE METER UNSOLICITED RESULTS Routine 12/01/2024 1:08 PM EDT NH EEG,W/AWAKE & DROWSY RECORD Routine 12/01/2024 12:59 PM EDT POCT GLUCOSE METER UNSOLICITED RESULTS Routine 12/01/2024 11:17 AM EDT POCT GLUCOSE METER UNSOLICITED RESULTS Routine 12/01/2024 7:39 AM EDT CYSTATIN C Add-On 12/01/2024 5:02 AM EDT CBC W/O DIFFERENTIAL Routine 12/01/2024 5:02 AM EDT BASIC METABOLIC PANEL, PLASMA Routine 12/01/2024 5:02 AM EDT POCT GLUCOSE METER UNSOLICITED RESULTS Routine 11/30/2024 9:11 PM EDT POCT GLUCOSE METER UNSOLICITED RESULTS Routine 11/30/2024 5:25 PM EDT US RENAL COMPLETE Routine 11/30/2024 12: 47 PM EDT CBC W/O DIFFERENTIAL Routine 11/30/2024 12:10 PM EDT POCT GLUCOSE METER UNSOLICITED RESULTS Routine 11/30/2024 10:36 AM EDT VAS US VENOUS DUPLEX LOWER EXTREMITY BILATERAL STAT 11/30/2024 7:43 AM EDT TROPONIN T, HIGH SENSITIVITY, 2 HOUR, PLASMA Timed 11/30/2024 6:31 AM EDT POCT GLUCOSE METER UNSOLICITED RESULTS Routine 11/30/2024 6:05 AM EDT TRANSFUSE RED BLOOD CELLS Routine 11/30/2024 4:05 AM EDT ECG ADULT Routine 11/30/2024 3:55 AM EDT PREPARE RBC Routine 11/30/2024 3:50 AM EDT POCT GLUCOSE METER UNSOLICITED RESULTS Routine 11/30/2024 2:41 AM EDT BLOOD CULTURE (AEROBIC/ANAEROBIC SET) Routine 11/30/2024 2:32 AM EDT STREPTOCOCCUS PNEUMONIAE AND LEGIONELLA URINARY ANTIGEN Routine 11/30/2024 2:09 AM EDT TROPONIN T, HIGH SENSITIVITY, 0 HOUR, PLASMA, REFLEX TO 2 HOUR STAT 11/30/2024 2:09 AM EDT SARS COV-2/COVID-19 BY PCR Routine 11/30/2024 2:09 AM EDT D DIMER, QUANTITATIVE Routine 11/30/2024 2:09 AM EDT NASOPHARYNGEAL RESPIRATORY PANEL Routine 11/30/2024 2:09 AM EDT MULTI DRUG RESISTANCE TEST Routine 11/30/2024 2:09 AM EDT CREATINE KINASE, TOTAL, PLASMA Add-On 11/30/2024 2:09 AM EDT PROCALCITONIN, PLASMA Routine 11/30/2024 2:09 AM EDT BLOOD CULTURE (AEROBIC/ANAEROBIC SET) Routine 11/30/2024 2:09 AM EDT APTT Routine 11/30/2024 2:09 AM EDT PROTHROMBIN TIME(PT) / INR Routine 11/30/2024 2:09 AM EDT CBC WITH AUTO DIFFERENTIAL Routine 11/30/2024 2:09 AM EDT TYPE AND SCREEN Routine 11/30/2024 2:09 AM EDT C-REACTIVE PROTEIN, PLASMA Routine 11/30/2024 2:09 AM EDT PHOSPHORUS, PLASMA Routine 11/30/2024 2: 09 AM EDT MAGNESIUM, PLASMA Routine 11/30/2024 2:0 9 AM EDT BLOOD GAS PANEL, VENOUS Routine 11/30/2024 2:09 AM EDT COMPREHENSIVE METABOLIC PANEL, PLASMA Routine 11/30/2024 2:09 AM EDT ECG ADULT STAT 11/30/2024 1:36 AM EDT UREA NITROGEN, RANDOM URINE Routine 11/29/2024 11:17 PM EDT SODIUM, URINE, RANDOM Routine 11/29/2024 11:17 PM EDT CREATININE, RANDOM URINE Routine 11/29/2024 11:17 PM EDT URINALYSIS WITH REFLEX MICROSCOPIC Routine 11/29/2024 11:17 PM EDT COMPREHENSIVE URINE DRUG SCREENING,QUALITATIVE ASSAY, >= 27 DRUG CLASSES STAT 11/29/2024 9:34 PM EDT BLOOD GAS PANEL, VENOUS STAT 11/29/2024 8:30 PM EDT URINALYSIS WITH REFLEX MICROSCOPIC AND CULTURE STAT 11/29/2024 7:58 PM EDT URINE MEEK PANEL STAT 11/29/2024 7:58 PM EDT URINALYSIS WITH REFLEX MICROSCOPIC STAT 11/29/2024 7:[address] HEAD WO IV CONTRAST STAT 7:42 PM EDT N-TERMINAL PROBNP, PLASMA STAT Add-on 11/29/2024 7:35 PM EDT PHOSPHORUS, PLASMA STAT 11/29/2024 7: 35 PM EDT MAGNESIUM, PLASMA STAT 11/29/2024 7:3 5 PM EDT BASIC METABOLIC PANEL, PLASMA STAT 11/29/2024 7:35 PM EDT XR CHEST 1 VIEW STAT 11/29/2024 7:19 PM EDT documented in this encounter Results * (ABNORMAL) POCT glucose meter (12/10/2024 4:33 PM EDT) Pathologist [facility] POCT Glucose 130(H) 74 - 99 mg/dL 12/10/2024 4:35 PM EDT [facility] Comment:Accuracy of a glucos e result obtained from a capillary whole blood specimen relies upon adequate, non-compromised capillary blood flow. If the capillary glucose result is not consistent with the patient's clinical signs and symptoms, glucose testing should be repeated with either an arterial or venous sample on the glucometer or sent to the main labortory for testing. Comment 12/10/2024 4:35 PM EDT [facility] [employer]red[employer] Dumping Supervisor ID Mari Ovalles 12/11/19 25 4:35 PM EDT [facility]ARE [facility] Device ID [id number] 12/10/2024 4:35 PM EDT [facility] Specimen Type POC Capillary 12/10/2024 4:35 PM EDT [facility] Blood Capillary blood specimen / Unknown 12/10/2024 4:33 PM EDT 12/10/2024 4:35 PM EDT Bernice Eckert MD LAB POINT OF CARE TE ST DOCKED DEVICE UNSOLICITED RESULTS Final Result Performing Organization Address City/State/[facility] Co de Phone Number [facility] [address] [place] [address] * (ABNORMAL) POCT glucose meter (12/10/2024 11:21 AM EDT) Pathologist [facility] POCT Glucose 258(H) 74 - 99 mg/dL 12/10/2024 11:23 AM EDT [facility] Comment:Accuracy of [...] to the main labortory for testing. Comment 12/10/2024 11:23 AM EDT [facility] Su[employer] Dumping Supervisor ID Mari Ovalles 12/11/19 11:23 AM EDT HEALTHCARE LAB Device ID [id number] 12/10/2024 11:23 AM EDT [facility] Specimen Type POC Capillary 12/10/2024 11:23 AM EDT [facility] Blood Capillary blood specimen / Unknown 12/10/2024 11:21 AM EDT 12/10/2024 11:23 AM EDT us Bernice Eckert MD LAB POINT OF CARE TE ST DOCKED DEVICE UNSOLICITED RESULTS Final Result Performing Organization Address City/[facility] Co de Phone Number [facility] [address] [place] [address] * (ABNORMAL) POCT glucose meter (12/10/2024 8:00 AM EDT) POCT Glucose 113(H) 74 - 99 mg/dL 12/10/2024 8:02 AM EDT [facility] Comment:Accuracy of [...] to the main labortory for testing. Comment 12/10/2024 8:02 AM EDT [facility] Su[employer] Dumping Supervisor ID Mari Ovalles 12/11/19 8:02 AM EDT [facility]ARE [facility] Device ID [id number] 12/10/2024 8:02 AM EDT [facility] Specimen Type POC Capillary 12/10/2024 8:02 AM EDT [facility] Blood Capillary blood specimen / Unknown 12/10/2024 8:00 AM EDT 12/10/2024 8:02 AM EDT us Bernice Eckert MD LAB POINT OF CARE TE ST DOCKED DEVICE UNSOLICITED RESULTS Final Result Performing Organization Address City/[facility] Co de Phone Number [facility] [address] [place] [address] * (ABNORMAL) Basic metabolic panel (12/10/2024 7:06 AM EDT) Glucose, Plasma 108(H) 74 - 99 mg/dL 12/10/2024 7:43 AM EDT [facility] BUN, Plasma 9 8 - 23 mg/dL 12/10/2024 7:43 AM EDT [facility] Creatinine, Plasma 1.35(H) 0.60 - 1.10 mg/dL 12/10/2024 7:43 AM EDT [facility] BUN/Creatinine Ratio 7 12/10/2024 7:43 AM EDT [facility] Sodium, Plasma 142 136 - 145 mmol/L 12/10/2024 7:43 AM EDT [facility] Potassium, Plasma 2.7(L) 3.6 - 4.9 mmol/L 12/10/2024 7:43 AM EDT [facility] Chloride, Plasma 99 97 - 107 mmol/L 12/10/2024 7:43 AM EDT [facility] CO2, Plasma 28 22 - 29 mmol/L 12/10/2024 7:43 AM EDT [facility] Anion Gap 15 6 - 16 mmol/L 12/10/2024 7:43 AM EDT [facility] Total Calcium, Plasma 8.7(L) 8.9 - 10.2 mg/dL 12/10/2024 7:43 AM EDT [facility] eGFRcr 44.0 mL/min/1.7 3m*2 12/10/2024 7:43 AM EDT [facility] Comment:Reported eGFRcr in m L/min/1.73m2 is based the CKD-EPI 2020 equation that does not use a race coefficient. Blood Venous blood specimen / Unknown Venipuncture / Unknown 12/10/2024 7:06 AM EDT 12/10/2024 7:15 AM EDT us Bernice Eckert MD LAB BLOOD ORDERABLES Final Resu lt [facility] [address] [place] [address] * (ABNORMAL) POCT glucose meter (12/09/2024 7:23 PM EDT) POCT Glucose 112(H) 74 - 99 mg/dL 12/09/2024 7:35 PM EDT [facility] Comment:Accuracy of [...] to the main labortory for testing. Comment 12/09/2024 7:35 PM EDT [facility] Su[employer] Dumping Supervisor ID Silvio Alvares 12/09/2024 7:35 PM EDT [facility] Device ID [id number] 12/09/2024 7:35 PM EDT [facility] Specimen Type POC Capillary 12/09/2024 7:35 PM EDT [facility] Blood Capillary blood specimen / Unknown 12/09/2024 7:23 PM EDT 12/09/2024 7:35 PM EDT Bernice Eckert MD LAB POINT OF CARE TE ST DOCKED DEVICE UNSOLICITED RESULTS Final Result [facility] [address] [place] [address] * (ABNORMAL) POCT glucose meter (12/09/2024 5:34 PM EDT) [facility] POCT Glucose 120(H) 74 - 99 mg/dL 12/09/2024 5:35 PM EDT [facility] Comment:Accuracy of [...] to the main labortory for testing. Comment 12/09/2024 5:35 PM EDT [facility] [employer] Dumping Supervisor ID Cynthia Meza 025 5:35 PM EDT [facility] Device ID [id number] 12/09/2024 5:35 PM EDT [facility] Specimen Type POC Capillary 12/09/2024 5:35 PM EDT [facility] Blood Capillary blood specimen / Unknown 12/09/2024 5:34 PM EDT 12/09/2024 5:35 PM EDT Bernice Eckert MD LAB POINT OF CARE TE ST DOCKED DEVICE UNSOLICITED RESULTS Final Result Performing Organization Address [facility] de Phone Number [facility]ARE [facility] [address] [place] [address] * (ABNORMAL) POCT glucose meter (12/09/2024 12:21 PM EDT) Pathologist [facility] POCT Glucose 198(H) 74 - 99 mg/dL 12/09/2024 12:22 PM EDT [facility] Comment:Accuracy [...] to the main labortory for testing. Comment 12/09/2024 12:22 PM EDT [facility] [employer] Dumping Supervisor ID Cynthia Meza 025 12:22 PM EDT [facility] Device ID [id number] 12/09/2024 12:22 PM EDT [facility] Specimen Type POC Capillary 12/09/2024 12:22 PM EDT [facility] Blood Capillary blood specimen / Unknown 12/09/2024 12:21 PM EDT 12/09/2024 12:22 PM EDT Bernice Eckert MD LAB POINT OF CARE TE ST DOCKED DEVICE UNSOLICITED RESULTS Final Result Performing Organization Address City/[facility] Co de Phone Number [facility] [address] [place] [address] * (ABNORMAL) POCT glucose meter (12/09/2024 8:57 AM EDT) Pathologist [facility] POCT Glucose 118(H) 74 - 99 mg/dL 12/09/2024 8:59 AM EDT [facility] Comment:Accuracy of [...] to the main labortory for testing. Comment 12/09/2024 8:59 AM EDT [facility] Su[employer] Dumping Supervisor ID Cynthia Meza 025 8:59 AM EDT [facility] Device ID [id number] 12/09/2024 8:59 AM EDT [facility] Specimen Type POC Capillary 12/09/2024 8:59 AM EDT [facility] Blood Capillary blood specimen / Unknown 12/09/2024 8:57 AM EDT 12/09/2024 8:59 AM EDT us Bernice Eckert MD LAB POINT OF CARE TE ST DOCKED DEVICE UNSOLICITED RESULTS Final Result [facility] [address] [place] [phone] * (ABNORMAL) Basic metabolic panel (12/09/2024 3:52 AM EDT) Glucose, Plasma 110(H) 74 - 99 mg/dL 12/09/2024 9:10 AM EDT [facility] BUN, Plasma 9 8 - 23 mg/dL 12/09/2024 9:10 AM EDT [facility] Creatinine, Plasma 1.48(H) 0.60 - 1.10 mg/dL 12/09/2024 9:10 AM EDT [facility] BUN/Creatinine Ratio 6 12/09/2024 9:10 AM EDT [facility] Sodium, Plasma 143 136 - 145 mmol/L 12/09/2024 9:10 AM EDT [facility] Potassium, Plasma 3.2(L) 3.6 - 4.9 mmol/L 12/09/2024 9:10 AM EDT [facility] Chloride, Plasma 102 97 - 107 mmol/L 12/09/2024 9:10 AM EDT [facility] CO2, Plasma 25 22 - 29 mmol/L 12/09/2024 9:10 AM EDT [facility] Anion Gap 16 6 - 16 mmol/L 12/09/2024 9:10 AM EDT [facility] Total Calcium, Plasma 8.8(L) 8.9 - 10.2 mg/dL 12/09/2024 9:10 AM EDT [facility] eGFRcr 39.4 mL/min/1.7 3m*2 12/09/2024 9:10 AM EDT [facility] Comment:Reported eGFRcr in m L/min/1.73m2 is based the CKD-EPI 2020 equation that does not use a race coefficient. Blood Venous blood specimen / Unknown Venipuncture / Unknown 12/09/2024 3:52 AM EDT 12/09/2024 4:02 AM EDT us Bernice Eckert MD LAB BLOOD ORDERABLES Final Resu lt Performing Organization Address [facility]/ZIP Co de Phone Number [facility] [address] [place] [address] * Vancomycin, random (12/09/2024 3:52 AM EDT) Pathologist [facility] Vancomycin, Random, Plasma 15.7 ug/mL 12/09/2024 4:41 AM EDT [facility] Blood Venous blood specimen / Unknown Venipuncture / Unknown 12/09/2024 3:52 AM EDT 12/09/2024 4:02 AM EDT us Bernice Eckert MD LAB BLOOD ORDERABLES Final Resu lt Performing Organization Address [facility] Co de Phone Number [facility] [address] [place] [address] * (ABNORMAL) POCT glucose meter (12/08/2024 8:06 PM EDT) POCT Glucose 120(H) 74 - 99 mg/dL 12/08/2024 11:27 PM EDT [facility] Comment:Accuracy of [...] to the main labortory for testing. Comment 12/08/2024 11:27 PM EDT [facility] Su[employer] Dumping Supervisor ID Princess Abdoul 025 11:27 PM EDT [facility] Device ID [id number] 12/08/2024 11:27 PM EDT [facility] Specimen Type POC Capillary 12/08/2024 11:27 PM EDT [facility] Blood Capillary blood specimen / Unknown 12/08/2024 8:06 PM EDT 12/08/2024 11:27 PM EDT us Bernice Eckert MD LAB POINT OF CARE TE ST DOCKED DEVICE UNSOLICITED RESULTS Final Result Performing Organization Address City/[facility] Co de Phone Number [facility] [address] [place] [address] * (ABNORMAL) POCT glucose meter (12/08/2024 5:28 PM EDT) [facility] POCT Glucose 115(H) 74 - 99 mg/dL 12/08/2024 5:29 PM EDT [facility] Comment:Accuracy of [...] to the main labortory for testing. Comment 12/08/2024 5:29 PM EDT [facility] Su[employer] Dumping Supervisor ID Cynthia Meza 025 5:29 PM EDT [facility] Device ID [id number] 12/08/2024 5:29 PM EDT [facility] Specimen Type POC Capillary 12/08/2024 5:29 PM EDT [facility] Blood Capillary blood specimen / Unknown 12/08/2024 5:28 PM EDT 12/08/2024 5:29 PM EDT us Bernice Eckert MD LAB POINT OF CARE TE ST DOCKED DEVICE UNSOLICITED RESULTS Final Result Performing Organization Address City/[facility]/ZIP Co de Phone Number [facility] [address] [place] [address] * Wilbur auris Surveillance by PCR (12/08/2024 3:32 PM EDT) [facility] Wilbur auris PCR Result Not Detected Not Detected 12/09/2024 11:46 AM EDT [facility] Swab (Axilla and Groin) Non-blood Collection / Unknown 12/08/2024 3:32 PM EDT 12/08/2024 3:53 PM EDT Narrative [facility] - 12/09/2024 11:46 AM EDT This PCR assay was developed and its performance characteristics determined by [facility] as appropriate for clinical purposes. This assay has not been cleared or approved by the FDA, but is performed in a CLIA regulated laboratory that is qualified to perform high-complexity testing. us Bernice Eckert MD LAB MICROBIOLOGY - GENERAL BENNETT NAYAK Final Result [facility] [address] [id number] * PERIPHERAL IV (SMARTFORM LINK) (12/08/2024 3:30 PM EDT) Narrative Dayana River RN - 12/08/2024 3:30 PM EDT Dayana River RN 12/08/2024 3:30 PM Insert peripheral IV Performed by: Dayana River RN Authorized by: Jay Nicolas APRN, DNP Hand hygiene: Hand hygiene performed prior to [...] semipermeable dressing Education provided to: Patient us Jay Nicolas APRN, DNP IV THERAPY ORDERABLES Fi nal Result * (ABNORMAL) POCT glucose meter (12/08/2024 12:42 PM EDT) Pathologist [facility] POCT Glucose 142(H) 74 - 99 mg/dL 12/08/2024 12:43 PM EDT [facility] Comment:Accuracy of a glucos e result obtained from a capillary whole blood specimen relies upon adequate, non-compromised capillary blood flow. If the capillary glucose result is not consistent with the patient's clinical signs and symptoms, glucose testing should be repeated with either an arterial or venous sample on the glucometer or sent to the main labortory for testing. Comment 12/08/2024 12:43 PM EDT [facility] [employer] Dumping Supervisor ID Cynthia Meza 025 12:43 PM EDT [facility] Device ID [id number] 12/08/2024 12:43 PM EDT [facility] Specimen Type POC Capillary 12/08/2024 12:43 PM EDT [facility] Blood Capillary blood specimen / Unknown 12/08/2024 12:42 PM EDT 12/08/2024 12:43 PM EDT us Bernice Eckert MD LAB POINT OF CARE TE ST DOCKED DEVICE UNSOLICITED RESULTS Final Result Performing Organization Address [facility] Co de Phone Number [facility] [address] [place] [address] * (ABNORMAL) POCT glucose meter (12/08/2024 9:02 AM EDT) [facility] POCT Glucose 129(H) 74 - 99 mg/dL 12/08/2024 9:04 AM EDT [facility] Comment:Accuracy of a glucos e result obtained from a capillary whole blood specimen relies upon adequate, non-compromised capillary blood flow. If the capillary glucose result is not consistent with the patient's clinical signs and symptoms, glucose testing should be repeated with either an arterial or venous sample on the glucometer or sent to the main labortory for testing. Comment 12/08/2024 9:04 AM EDT [facility] Su[employer] Dred[employer] Dumping Supervisor ID Cynthia Meza 025 9:04 AM EDT [facility] LAB Device ID [id number] 12/08/2024 9:04 AM EDT [facility] Specimen Type POC Capillary 12/08/2024 9:04 AM EDT [facility] Blood Capillary blood specimen / Unknown 12/08/2024 9:02 AM EDT 12/08/2024 9:04 AM EDT us Bernice Eckert MD LAB POINT OF CARE TE ST DOCKED DEVICE UNSOLICITED RESULTS Final Result [facility] [address] [place] [address] * ECHO, ADULT TRANSTHORACIC COMPLETE W/ STRAIN (12/08/2024 8:59 AM EDT) BSA 2.23 m2 SOL ISCV Height 170.2 SOL ISCV Weight 113.9 SOL ISCV LV V1 VTI 25.8 cm SOL ISCV MV E Vmax 108.0 cm/s SOL ISCV MV A Vmax 118.0 cm/s SOL ISCV MV E/A 0.9 cm/s SOL ISCV TR Vmax 272.0 cm/s SOL ISCV PA V2 VTI 24.5 cm SOL ISCV RV s' Griffin 12.4 cm/s SOL ISCV TAPSE 24 mm SOL ISCV TR Max PG 30 mmHG SOL ISCV LV V1 Vmax 115.5 cm/s SOL ISCV Ao V2 VTI 30.8 cm SOL ISCV Ao mean PG 4 mmHg SOL ISCV Ao V2 Vmax 142.0 cm/s SOL ISCV Ao max PG 8 mmHg SOL ISCV AV VTI Index 0.84 SOL ISCV MV dec slope 450 cm/s2 SOL ISCV MV dec time 240 ms SOL ISCV MV P1/2t 70 ms SOL ISCV MVA(P1/2t) 3.2 cm2 SOL ISCV PA MG 2 mmHg SOL ISCV PA V2 Vmax 90.4 cm/s SOL ISCV PA PG 3 mmHg SOL ISCV LV mean PG 3.0 mmHG SOL ISCV LV V1 mean 73.5 cm/sec SOL ISCV LV max PG 5.3 mmHg SOL ISCV AV-pr VR 0.8 SOL ISCV Ao V2 mean 92.6 cm/s SOL ISCV IVSd 11 mm SOL ISCV LVIDd 55 mm SOL ISCV LVPWd 11 mm SOL ISCV LV MASS(C)D 241 g SOL ISCV [facility] CV ECHO LV MASS INDEX 108 g/m2 SOL ISCV LV RWT 0.40 mm SOL ISCV Ao Root Diam 31 mm SOL ISCV LVIDs 44 mm SOL ISCV LA dimension 33 mm SOL ISCV LVOT diam 22 mm SOL ISCV LVOT AREA 3.8 cm2 SOL ISCV SV(LVOT) 98 mL SOL ISCV PARIS(I,D) 3.2 cm2 SOL ISCV PARIS(VTI)/BSA_ph l 1.4 cm2/m2 SOL ISCV LAV(MOD-4ch) 78 mL SOL ISCV RA MOD 4Ch 26 mL SOL ISCV MICHEAL 12 mL/m2 SOL ISCV RV base 31 mm SOL ISCV LV EDV(MOD-4ch) 122 mL SOL ISCV LV ESV(MOD4ch) 58 mL SOL ISCV EF(MOD-sp4) 52 % SOL ISCV LAV(MOD-bp) Indexed 40 mL/m2 SOL ISCV LAV(MOD-2ch) 101 mL SOL ISCV LV EDV(MOD-2ch) 128 mL SOL ISCV EDV(MOD-bp) 125 mL SOL ISCV LV ESV(MOD2ch) 61 mL SOL ISCV EF(MOD-sp2) 52 % SOL ISCV ESV(MOD-bp) 60 mL SOL ISCV EF(MOD-bp) 52 % SOL ISCV LVLs ap2 6.6 mm SOL ISCV RVSP 33 mmHg SOL ISCV RAP systole 3 mmHg SOL ISCV LV Lat e' Velocity 10.8 cm/s SOL ISCV LV Sept e' Griffin 7.7 cm/s SOL ISCV Lat E/e' 10.0 SOL ISCV Sep E/e' 14.0 SOL ISCV Avg E/e' 12.0 SOL ISCV Anatomical Region Laterality Modality Echocardiography Narrative 12/08/2024 9:44 AM EDT Left Ventricle: The left ventricle is normal size. The LVEF as measured by biplane volume is 52%. The left ventricular filling pressure is elevated. No regional wall motion abnormalities are seen. Right Ventricle: The right ventricle is normal in size. The right ventricular systolic function is normal. All cardiac valves were reasonably well interrogated with 2D imaging and/or Doppler assessment and no significant valve regurgitation or stenosis is seen. There is no recent study available for direct [id number] comparison. Left Ventricle The left ventricle is normal size. The LVEF as measured by biplane volume is 52%. The left ventricular filling pressure is elevated. No regional wall motion abnormalities are seen. Right Ventricle The right ventricle is normal in size. The right ventricular systolic function is normal. Right ventricular systolic pressure is normal (<35mmHg). Left Atrium The left atrial size is mildly increased with an indexed volume of 35-41 mL/m2. The interatrial septum is intact with no evidence for an atrial septal defect. Right Atrium The right atrial volume index is normal (18-32mL/m2). IVC/SVC Based on the IVC size and respiratory variation, the estimated right atrial pressure is 3mmHg. Mitral Valve There is mild mitral annular calcification. There is no mitral regurgitation. There is no mitral stenosis. Tricuspid Valve The tricuspid valve is normal in appearance. There is no tricuspid regurgitation. There is no tricuspid stenosis. Aortic Valve The aortic valve appears grossly normal. There is no valvular regurgitation. There is no hemodynamically significant valvular aortic stenosis. Pulmonic Valve The pulmonic valve is normal in appearance. There is no pulmonic regurgitation. There is no pulmonic stenosis. Pericardium No pericardial effusion. Great Vessels The aortic root is normal in size. The main pulmonary artery is normal in size. Study Details A complete transthoracic echocardiogram using two-dimensional (2D), m-mode, color and spectral flow Doppler imaging was performed. A limited transthoracic echocardiogram using strain imaging was performed. Height: 170.2 cm. Weight: 113.9 kg. BSA: 2.23 m2. Study Recommendation All cardiac valves were reasonably well interrogated with 2D imaging and/or Doppler assessment and no significant valve regurgitation or stenosis is seen. There is no recent study available for direct [id number] comparison. Wall Scoring Baseline Score Index: 1.00 The left ventricular wall motion is normal. us Bernice Eckert MD CV ECHO PROCEDURES Final Result * Vancomycin, random (12/08/2024 3:37 AM EDT) Vancomycin, Random, Plasma 30.3 ug/mL 12/08/2024 4:20 AM EDT [facility] Blood Venous blood specimen / Unknown Venipuncture / Unknown 12/08/2024 3:37 AM EDT 12/08/2024 3:51 AM EDT Bernice Eckert MD LAB BLOOD ORDERABLES Final Resu lt [facility] [address] [place] [address] * (ABNORMAL) POCT glucose meter (12/07/2024 8:42 PM EDT) [facility] POCT Glucose 204(H) 74 - 99 mg/dL 12/07/2024 8:44 PM EDT [facility] Comment:Accuracy of [...] to the main labortory for testing. Comment 12/07/2024 8:44 PM EDT [facility] Su[employer] Dred[employer] Dumping Supervisor ID Halle House 12/07/2024 8:44 PM EDT [facility] Device ID [id number] 12/07/2024 8:44 PM EDT [facility] Specimen Type POC Capillary 12/07/2024 8:44 PM EDT [facility] Blood Capillary blood specimen / Unknown 12/07/2024 8:42 PM EDT 12/07/2024 8:44 PM EDT Bernice Eckert MD LAB POINT OF CARE TE ST DOCKED DEVICE UNSOLICITED RESULTS Final Result Performing Organization Address City/State/[facility] Co de Phone Number [facility] [address] [place] [address] * (ABNORMAL) POCT glucose meter (12/07/2024 5:36 PM EDT) [facility] POCT Glucose 138(H) 74 - 99 mg/dL 12/07/2024 5:38 PM EDT [facility] Comment:Accuracy of [...] to the main labortory for testing. Comment 12/07/2024 5:38 PM EDT [facility] Su[employer] D[employer] Dumping Supervisor ID Cynthia Meza 025 5:38 PM EDT [facility] Device ID [id number] 12/07/2024 5:38 PM EDT [facility] Specimen Type POC Capillary 12/07/2024 5:38 PM EDT [facility] Blood Capillary blood specimen / Unknown 12/07/2024 5:36 PM EDT 12/07/2024 5:38 PM EDT Bernice Eckert MD LAB POINT OF CARE TE ST DOCKED DEVICE UNSOLICITED RESULTS Final Result Performing Organization Address City/[facility]/ZIP Co de Phone Number [facility] [address] [place] [address] * (ABNORMAL) POCT glucose meter (12/07/2024 12:12 PM EDT) POCT Glucose 154(H) 74 - 99 mg/dL 12/07/2024 12:13 PM EDT [facility] Comment:Accuracy of [...] to the main labortory for testing. Comment 12/07/2024 12:13 PM EDT [facility] Su[employer] Dred[employer] Dumping Supervisor ID Cynthia Meza 025 12:13 PM EDT [facility] Device ID [id number] 12/07/2024 12:13 PM EDT [facility] Specimen Type POC Capillary 12/07/2024 12:13 PM EDT [facility] Blood Capillary blood specimen / Unknown 12/07/2024 12:12 PM EDT 12/07/2024 12:13 PM EDT Berniec Eckert MD LAB POINT OF CARE TE ST DOCKED DEVICE UNSOLICITED RESULTS Final Result [facility] [address] [place] [address] * (ABNORMAL) POCT glucose meter (12/07/2024 8:16 AM EDT) POCT Glucose 160(H) 74 - 99 mg/dL 12/07/2024 8:18 AM EDT [facility] Comment:Accuracy of [...] to the main labortory for testing. Comment 12/07/2024 8:18 AM EDT [facility] Su[employer] Dred[employer] Dumping Supervisor ID Cynthia Meza 025 8:18 AM EDT [facility] Device ID [id number] 12/07/2024 8:18 AM EDT [facility] Specimen Type POC Capillary 12/07/2024 8:18 AM EDT [facility] Blood Capillary blood specimen / Unknown 12/07/2024 8:16 AM EDT 12/07/2024 8:18 AM EDT us Noemí Leigh MD LAB POINT OF CARE TE ST DOCKED DEVICE UNSOLICITED RESULTS Final Result Performing Organization Address City/State/[facility] Co de Phone Number [facility] [address] [place] [address] * (ABNORMAL) CBC and Differential (12/07/2024 3:51 AM EDT) [facility] Signature WBC Count 5.92 3.70 - 10.30 10*3/uL LAB HEMATOLOGY METHOD 12/07/2024 4:23 AM EDT [facility] RBC Count 2.54(L) 3.90 - 5.20 10*6/uL LAB HEMATOLOGY METHOD 12/07/2024 4:23 AM EDT [facility] HGB 7.5(L) 11.2 - 15.7 g/dL LAB HEMATOLOGY METHOD 12/07/2024 4:23 AM EDT [facility] HCT 24.3(L) 34.0 - 45.0 % LAB HEMATOLOGY METHOD 12/07/2024 4:23 AM EDT [facility] Platelet Count 264 155 - 369 10*3/uL LAB HEMATOLOGY METHOD 12/07/2024 4:23 AM EDT [facility] MCV 96 79 - 98 fL LAB HEMATOLOGY METHOD 12/07/2024 4:23 AM EDT [facility] MCH 29.5 26.0 - 32.0 pg LAB HEMATOLOGY METHOD 12/07/2024 4:23 AM EDT [facility] MCHC 30.9 30.7 - 35.5 g/dL LAB HEMATOLOGY METHOD 12/07/2024 4:23 AM EDT [facility] RDW 18.6(H) 11.5 - 14.5 % LAB HEMATOLOGY METHOD 12/07/2024 4:23 AM EDT [facility] MPV 9.4 8.8 - 12.5 fL LAB HEMATOLOGY METHOD 12/07/2024 4:23 AM EDT [facility] nRBC 0.0 <=0.0 per 100 WBCs LAB HEMATOLOGY METHOD 12/07/2024 4:23 AM EDT [facility] Differential Type Automated LAB HEMATOLOGY METHOD 12/07/2024 4:23 AM EDT [facility] Neutrophils % 74 % LAB HEMATOLOGY METHOD 12/07/2024 4:23 AM EDT [facility] Lymphocytes % 12 % LAB HEMATOLOGY METHOD 12/07/2024 4:23 AM EDT [facility] Monocytes % 9 % LAB HEMATOLOGY METHOD 12/07/2024 4:23 AM EDT [facility] Eosinophils % 3 % LAB HEMATOLOGY METHOD 12/07/2024 4:23 AM EDT [facility] Basophils % 1 % LAB HEMATOLOGY METHOD 12/07/2024 4:23 AM EDT [facility] Immature Granulocytes % 1 % LAB HEMATOLOGY METHOD 12/07/2024 4:23 AM EDT [facility] Neutrophils Absolute 4.44 1.60 - 6.10 10*3/uL LAB HEMATOLOGY METHOD 12/07/2024 4:23 AM EDT [facility] Lymphocytes Absolute 0.69(L) 1.20 - 3.90 10*3/uL LAB HEMATOLOGY METHOD 12/07/2024 4:23 AM EDT [facility] Monocytes Absolute 0.52 0.30 - 0.90 10*3/uL LAB HEMATOLOGY METHOD 12/07/2024 4:23 AM EDT [facility] Eosinophils Absolute 0.16 0.00 - 0.50 10*3/uL LAB HEMATOLOGY METHOD 12/07/2024 4:23 AM EDT [facility] Basophils Absolute 0.07 0.00 - 0.10 10*3/uL LAB HEMATOLOGY METHOD 12/07/2024 4:23 AM EDT [facility] Immature Granulocytes Absolute 0.04 0.00 - 0.06 10*3/uL LAB HEMATOLOGY METHOD 12/07/2024 4:23 AM EDT [facility] Blood Venous blood specimen / Unknown Venipuncture / Unknown 12/07/2024 3:51 AM EDT 12/07/2024 4:12 AM EDT Narrative [facility] - 12/07/2024 4:23 AM EDT Therapeutic decision making should be based on absolute values, rather than percentages. us Bernice Eckert MD LAB BLOOD ORDERABLES Final Resu lt Performing Organization Address [facility]/ZIP Co de Phone Number [facility] [address] [place] [address] * (ABNORMAL) Magnesium, Plasma (12/07/2024 3:51 AM EDT) Magnesium, Plasma 1.8(L) 1.9 - 2.4 mg/dL 12/07/2024 4:43 AM EDT [facility] Blood Venous blood specimen / Unknown Venipuncture / Unknown 12/07/2024 3:51 AM EDT 12/07/2024 4:12 AM EDT us Bernice Eckert MD LAB BLOOD ORDERABLES Final Resu lt Performing Organization Address [facility] Co de Phone Number [facility] [address] [place] [address] * (ABNORMAL) Basic Metabolic Panel, Plasma (12/07/2024 3:51 AM EDT) Glucose, Plasma 138(H) 74 - 99 mg/dL 12/07/2024 4:43 AM EDT [facility] BUN, Plasma 10 8 - 23 mg/dL 12/07/2024 4:43 AM EDT [facility] Creatinine, Plasma 1.74(H) 0.60 - 1.10 mg/dL 12/07/2024 4:43 AM EDT [facility] BUN/Creatinine Ratio 6 12/07/2024 4:43 AM EDT [facility] Sodium, Plasma 142 136 - 145 mmol/L 12/07/2024 4:43 AM EDT [facility] Potassium, Plasma 3.7 3.6 - 4.9 mmol/L 12/07/2024 4:43 AM EDT [facility] Comment:Hemolyzed, result ma y be falsely increased. Chloride, Plasma 103 97 - 107 mmol/L 12/07/2024 4:43 AM EDT [facility] CO2, Plasma 26 22 - 29 mmol/L 12/07/2024 4:43 AM EDT [facility] Anion Gap 13 6 - 16 mmol/L 12/07/2024 4:43 AM EDT [facility] Total Calcium, Plasma 8.7(L) 8.9 - 10.2 mg/dL 12/07/2024 4:43 AM EDT [facility] eGFRcr 32.4 mL/min/1.7 3m*2 12/07/2024 4:43 AM EDT [facility] Comment:Reported eGFRcr in m L/min/1.73m2 is based the CKD-EPI 2020 equation that does not use a race coefficient. Blood Venous blood specimen / Unknown Venipuncture / Unknown 12/07/2024 3:51 AM EDT 12/07/2024 4:12 AM EDT us Bernice Eckert MD LAB BLOOD ORDERABLES Final Resu lt Performing Organization Address City/[facility]/ZIP Co de Phone Number [facility] [address] [place] [address] * Vancomycin, random (12/07/2024 3:51 AM EDT) Vancomycin, Random, Plasma 19.8 ug/mL 12/07/2024 4:43 AM EDT [facility] Blood Venous blood specimen / Unknown Venipuncture / Unknown 12/07/2024 3:51 AM EDT 12/07/2024 4:12 AM EDT us Bernice Eckert MD LAB BLOOD ORDERABLES Final Resu lt Performing Organization Address City/[facility]/ZIP Co de Phone Number [facility] [address] [place] [address] * (ABNORMAL) POCT glucose meter (12/06/2024 7:54 PM EDT) Pathologist [facility] POCT Glucose 200(H) 74 - 99 mg/dL 12/06/2024 7:59 PM EDT [facility] Comment:Accuracy of a glucos e result obtained from a capillary whole blood specimen relies upon adequate, non-compromised capillary blood flow. If the capillary glucose result is not consistent with the patient's clinical signs and symptoms, glucose testing should be repeated with either an arterial or venous sample on the glucometer or sent to the main labortory for testing. Comment 12/06/2024 7:59 PM EDT [facility] Su[employer] D[employer] Dumping Supervisor ID OdhiamboDean 12/06/2024 7:59 PM EDT [facility] Device ID [id number] 12/06/2024 7:59 PM EDT [facility] Specimen Type POC Capillary 12/06/2024 7:59 PM EDT [facility] Blood Capillary blood specimen / Unknown 12/06/2024 7:54 PM EDT 12/06/2024 7:59 PM EDT Noemí Leigh MD LAB POINT OF CARE TE ST DOCKED DEVICE UNSOLICITED RESULTS Final Result Performing Organization Address City/State/[facility] Co de Phone Number [facility] [address] [place] [address] * Herpes Simplex Virus (HSV) by PCR (12/06/2024 6:48 PM EDT) [facility] Herpes Simplex Virus 1 (HSV-1) PCR Result Not Detected Not Detected 12/07/2024 8:54 AM EDT [facility] Herpes Simplex Virus 2 (HSV-2) PCR Result Not Detected Not Detected 12/07/2024 8:54 AM EDT [facility] Cerebrospinal Fluid Lumbar puncture / Unknown Non-blood Collection / Unknown 12/06/2024 6:48 PM EDT 12/06/2024 6:48 PM EDT Narrative [facility] - 12/07/2024 8:54 AM EDT The FDA approved specimen sources for this assay are CSF, cutaneous, and mucocutaneous sites. These results should be used in conjunction with other clinical tests and findings and should not be the sole basis for diagnosis or treatment of the patient. The FDA approved specimen sources for this assay are CSF, cutaneous, and mucocutaneous sites. These results should be used in conjunction with other clinical tests and findings and should not be the sole basis for diagnosis or treatment of the patient. Noemí Leigh MD LAB MICROBIOLOGY - GENERAL ORD ERABLES Final Result Performing Organization Address City/[facility]/[place] [address] * Fungal Culture, Cerebrospinal Fluid (CSF) and Emily Ink (12/06/2024 6:48 PM EDT) Culture No Fungal Growth at 3 Weeks 12/27/2024 5:53 AM EDT [facility] Emily Ink No fungal elements seen 12/27/2024 5:53 AM EDT [facility] Cerebrospinal Fluid Lumbar puncture / Unknown Non-blood Collection / Unknown 12/06/2024 6:48 PM EDT 12/06/2024 6:48 PM EDT Noemí Leigh MD LAB MICROBIOLOGY - GENERAL ORD ERABLES Final Result Performing Organization Address City/[facility]/[place] [address] * Cryptococcal Antigen, CSF (12/06/2024 6:48 PM EDT) Cryptococcal Antigen Result (CSF) Negative Negative 12/07/2024 5:55 AM EDT [facility] Cerebrospinal Fluid Lumbar puncture / Unknown Non-blood Collection / Unknown 12/06/2024 6:48 PM EDT 12/06/2024 6:48 PM EDT Noemí Leigh MD LAB MICROBIOLOGY - GENERAL ORD ERABLES Final Result Performing Organization Address City/[facility]/[place] [address] * Cerebrospinal Fluid (CSF) Culture and Gram Stain (12/06/2024 6:48 PM EDT) Culture No growth at day 4 2024 2:22 PM EDT [facility] Gram Stain Rare Polymorphonuclear leukocytes 12/09/2024 2:22 PM EDT [facility] Gram Stain No organisms seen 025 2:22 PM EDT [facility] Cerebrospinal Fluid Lumbar puncture / Unknown Non-blood Collection / Unknown 12/06/2024 6:48 PM EDT 12/06/2024 6:48 PM EDT us Noemí Leigh MD LAB MICROBIOLOGY - GENERAL ORD ERABLES Final Result [facility] [address] [place] [address] * (ABNORMAL) POCT glucose meter (12/06/2024 6:00 PM EDT) [facility] POCT Glucose 144(H) 74 - 99 mg/dL 12/06/2024 6:03 PM EDT [facility] Comment:Accuracy of a glucos e result obtained from a capillary whole blood specimen relies upon adequate, non-compromised capillary blood flow. If the capillary glucose result is not consistent with the patient's clinical signs and symptoms, glucose testing should be repeated with either an arterial or venous sample on the glucometer or sent to the main labortory for testing. Comment 12/06/2024 6:03 PM EDT [facility] Su[employer] Dred[employer] Dumping Supervisor ID Dean Cummings 12/06/2024 6:03 PM EDT [facility] Device ID [id number] 12/06/2024 6:03 PM EDT [facility] Specimen Type POC Capillary 12/06/2024 6:03 PM EDT [facility] Blood Capillary blood specimen / Unknown 12/06/2024 6:00 PM EDT 12/06/2024 6:03 PM EDT us Noemí Leigh MD LAB POINT OF CARE TE ST DOCKED DEVICE UNSOLICITED RESULTS Final Result [facility] [address] [place] [address] * IR Lumbar Puncture (12/06/2024 4:24 PM EDT) Anatomical Region Laterality Modality Spine, L-spine X-Ray Angiograph y Impressions 12/13/2024 3:33 PM EDT Technically successful diagnostic lumbar puncture under fluoroscopic guidance. COMMUNICATION: Per this written report. Preliminary report signed by Lisa Romano on 12/07/2024 9:22 AM By electronically signing this report, I, the attending physician, attest that I have personally reviewed the images/data for the above examination(s) and agree with the final edited report. 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 She has had a headache, low grade fever, otitis externa and concern for possible meningitis. A diagnostic lumbar puncture under fluoroscopic guidance was requested. PRE-OP EVALUATION: The patient's preoperative neurological exam demonstrated the following findings: She is alert and oriented. DATE: 12/06/2024 4:11 PM COMPARISON: MR head reviewed from 12/01/2024. FRICTION PAINT MACHINE TENDER: Lisa Romano PA-C SECONDARY STANDPIPE TENDER: RT Scottie CONTRAST: 0 cc MEDICATIONS: 1% buffered Lidocaine (local) PROCEDURE TIME: 13 minutes FLUORO TIME: 0.9 minutes FLUORO DOSE: 53 mGy TECHNIQUE: The procedure was explained in [...] sac. Spontaneous CSF flow was obtained and 15 cc of pale yellow, non-cloudy CSF was obtained and sent for testing. Opening pressure was 19 cm water and closing pressure was 13 cm water. The inner trocar of the needle was re-introduced, and the needle was removed. The patient tolerated the procedure without complication. FINDINGS: Technically successful diagnostic lumbar puncture at L3-4 with return of clear and colorless CSF. 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 Shehas had a headache, low grade fever, otitis externa and concern forpossible meningitis. A diagnostic lumbar puncture under fluoroscopicguidance was requested. PRE-OP EVALUATION: The patient's preoperative neurological examdemonstrated the following findings: She is alert and oriented. DATE: 12/06/2024 4:11 PM COMPARISON: MR head reviewed from 12/01/2024. FRICTION PAINT MACHINE TENDER: Lisa Romano PA-C SECONDARY STANDPIPE TENDER: RT Scottie CONTRAST: 0 cc MEDICATIONS: 1% buffered Lidocaine (local) PROCEDURE TIME: 13 minutes FLUORO TIME: 0.9 minutes FLUORO DOSE: 53 mGy TECHNIQUE: The procedure was explained in [...] thecalsac. Spontaneous CSF flow was obtained and 15 cc of pale yellow, non-cloudy CSF was obtained and sent for testing. Opening pressure was 19cm water and closing pressure was 13 cm water. The inner trocar of theneedle was re- introduced, and the needle was removed. The patienttolerated the procedure without complication. FINDINGS: Technically successful diagnostic lumbar puncture at L3-4 with return ofclear and colorless CSF. IMPRESSION: Technically successful diagnostic lumbar puncture under fluoroscopicguidance. COMMUNICATION: Per this written report. Preliminary report signed by Lisa Romano on 12/07/2024 9:22 AM By electronically signing this report, I, the attending physician, attestthat I have personally reviewed the images/data for the aboveexamination(s) and agree with the final edited report. Drafted by Lisa Romano on 12/07/2024 9:16 AM Final report signed by Blu Medrano on 12/13/2024 3:33 PM us Lisa RAMOS IMG IR PROCEDURES Final Resul t * CSF, pathologist interpretation (12/06/2024 4:21 PM EDT) Specimen Type Cerebrospinal Fluid 12/07/2024 12:00 PM EDT [facility] Specimen Source, CSF Lumbar Puncture 12/07/2024 12:00 PM EDT [facility] Clinical Diagnosis, CSF Seizures, history of metastatic small cell carcinoma to the brain 12/07/2024 12:00 PM EDT [facility] Interpretation, CSF No evidence of malignancy; lymphocytosis. A resident was involved in the service. I attest I examined the relevant preparations for the specimens and confirmed the diagnosis or interpretation. 12/07/2024 12:00 PM EDT [facility] Pathologist Signature, CSF 12/07/2024 12:00 PM EDT [facility] Comment:Reviewed by: Wilma Courtney MD LAB CP ASR DISCLAIMER Yes 12/07/2024 12:00 PM EDT [facility] Cerebrospinal Fluid Lumbar puncture / Unknown Non-blood Collection / Unknown 12/06/2024 4:21 PM EDT 12/06/2024 6:34 PM EDT us Noemí Leigh MD LAB PATHOLOGY ORDERABLES Final Result Performing Organization Address City/[facility]/ZIP Co de Phone Number [facility] [address] [place] [address] * ENTEROVIRUS QUANTITATIVE PCR, CSF (SO) (12/06/2024 4:21 PM EDT) ENTEROVIRUS PCR CSF Not Detected Not Detected copies/ml 12/08/2024 9:44 PM EDT [facility] ([employer]) Comment: Assay Range: 83 copies/mL to 1.00E+08 copies/mL The limit of quantitation (LOQ) is 83 copies/mL. Enterovirus RNA detected below the LOQ will be reported as Detected:<83 copies/mL. This assay is designed to specifically detect enteroviruses; however, rhinoviruses are a closely related and highly diverse group of pathogens. Cross-reactivity has been observed with some strains of rhinovirus. This test was developed and its performance characteristics determined by [facility]. It has not been cleared or approved by the U.S. Food and Drug Administration. Results should be used in conjunction with clinical findings, and should not form the sole basis for a diagnosis or treatment decision. Testing Performed at: [facility] [address] [place] [address], [address] [place] [address] Insect Control Inspector: Anatoly Turk, PhD SUNITA ([facility]) CLIA # [id number] FLAG Interpretation: A = Abnormal, H = High, L = Low Cerebrospinal Fluid Cerebrospinal fluid specimen / Unknown Non-blood Collection / Unknown 12/06/2024 4:21 PM EDT 12/06/2024 6:36 PM EDT Narrative [facility] ([facility]) - 12/08/2024 9:44 PM EDT Release to patient in [facility]->Immediate us Noemí Leigh MD LAB BODY FLUIDS AND STOOLS ORD ERABLES Final Result ALLIE FINK) * Varicella zoster DNA, quantitative (12/06/2024 4:21 PM EDT) VZV qPCR CSF Not Detected Not Detected copies/mL 12/08/2024 9:06 PM EDT [facility]IE F[facility]) Comment: Assay Range: 251 copies/mL to 1.00E+08 copies/mL The limit of quantitation (LOQ) is 251 copies/mL. VZV DNA detected below the LOQ will be reported as Detected:<251 copies/mL. This test was developed and its performance characteristics determined by [facility]. It has not been cleared or approved by the U.S. Food and Drug Administration. Results should be used in conjunction with clinical findings, and should not form the sole basis for a diagnosis or treatment decision. Testing Performed at: [facility] [address] [place] [address], [facility] [address] [place] [address] Insect Control Inspector: Anatoly Turk, PhD BCLD ([facility]) CLIA # [id number] FLAG Interpretation: A = Abnormal, H = High, L = Low Cerebrospinal Fluid Cerebrospinal fluid specimen / Unknown Non-blood Collection / Unknown 12/06/2024 4:21 PM EDT 12/06/2024 6:36 PM EDT Narrative ALLIE FINK) - 12/08/2024 9:06 PM EDT Release to patient in [facility]->Immediate Noemí Leigh MD LAB BODY FLUIDS AND STOOLS ORD ERABLES Final Result ALLIE FINK) * West Nile virus, CSF (12/06/2024 4:21 PM EDT) WEST NILE VIRUS AB,IGG,CSF 0.07 <=1.29 IV 12/09/2024 5:05 AM EDT [facility] ([facility] [facility]) WEST NILE VIRUS AB,IGM,CSF 0.01 <=0.89 IV 12/09/2024 5:05 AM EDT [facility] ([employer]) Cerebrospinal Fluid Cerebrospinal fluid specimen / Unknown Non-blood Collection / Unknown 12/06/2024 4:21 PM EDT 12/06/2024 6:36 PM EDT [facility] (ALEX) - 12/09/2024 5:05 AM EDT INTERPRETIVE INFORMATION: West Nile Virus [...] members of the Flaviviridae family, such as [place] encephalitis virus, show extensive cross-reactivity with West [...] developed and its performance characteristics determined by [facility]. It has not been cleared or approved [...] members of the Flaviviridae family, such as [place] encephalitis virus, show extensive cross-reactivity with West [...] developed and its performance characteristics determined by [facility]. It has not been cleared or approved by the US Food and Drug Administration. This test was performed in a CLIA certified laboratory and is intended for clinical purposes. Performed By: [facility] [address] [place] [id number] Chef Concierge: Manuel Mas MD, PhD CLIA Number: [id number] us Noemí Leigh MD LAB BLOOD ORDERABLES Final Res ult [facility] ([employer]) [address] [place] [address] * CMV DNA, Quantitative, PCR CSF (SO) (12/06/2024 4:21 PM EDT) CMV qPCR CSF Not Detected Not Detected IU/mL 12/08/2024 9:06 PM EDT [facility] ([facility]) Comment: Assay Range: 142 IU/mL to 1.88E+08 IU/mL The limit of quantitation (LOQ) is 142 IU/mL. CMV DNA detected below the LOQ will be reported as Detected:<142 IU/mL. This test was developed and its performance characteristics determined by [facility]. It has not been cleared or approved by the U.S. Food and Drug Administration. Results should be used in conjunction with clinical findings, and should not form the sole basis for a diagnosis or treatment decision. Testing Performed at: [facility] [address] [place] [address], [address] [place] [address] Insect Control Inspector: Anatoly Turk, PhD [facility] ([facility]) CLIA # [id number] FLAG Interpretation: A = Abnormal, H = High, L = Low Cerebrospinal Fluid Cerebrospinal fluid specimen / Unknown Non-blood Collection / Unknown 12/06/2024 4:21 PM EDT 12/06/2024 6:36 PM EDT Su FINK) - 12/08/2024 9:06 PM EDT Release to patient in [facility]->Immediate us Noemí Leigh MD LAB BODY FLUIDS AND STOOLS ORD ERABLES Final Result Performing Organization Address [facility]/ZIP Co de Phone Number ALLIE FINK) * Lactate Dehydrogenase Total, Body Fluid (SO) (12/06/2024 4:21 PM EDT) Lactate Dehydrogenase Total, Body Fluid 33 U/L 12/09/2024 12:02 PM EDT [facility] ([facility]) LDH Fluid Source CSF 12/10/19 12:02 PM EDT [facility] ([facility]) Cerebrospinal Fluid Non-blood Collection / Unknown 12/06/2024 4:21 PM EDT 12/06/2024 6:36 PM EDT Narrative ASHUTOSH TAVAREZ (ALEX) - 12/09/2024 12:02 PM EDT INTERPRETIVE INFORMATION: Lactate Dehydrogenase Total, Body Fluid For information on body fluid reference ranges and/or interpretive guidance visit [email or web address] This test was developed and its performance characteristics determined by [facility]. It has not been cleared or approved by the US Food and Drug Administration. This test was performed in a CLIA certified laboratory and is intended for clinical purposes. Performed By: [facility] [address] [place] [address] Chef Concierge: Manuel Mas MD, PhD CLIA Number: [id number] us Noemí Leigh MD LAB REF LAB BLOOD AND FLUID OR D Final Result Performing Organization Address [facility] Co de Phone Number ASHUTOSH FINK) [address] [phone] * (ABNORMAL) Protein, CSF (12/06/2024 4:21 PM EDT) Total Protein, CSF 82(H) 15 - 45 mg/dL 12/06/2024 9:49 PM EDT [facility] Cerebrospinal Fluid Lumbar puncture / Unknown Non-blood Collection / Unknown 12/06/2024 4:21 PM EDT 12/06/2024 6:36 PM EDT Narrative [facility] - 12/06/2024 9:49 PM EDT Blood, when present in CSF, invalidates protein. Interpret results in the context of the patient's condition and other laboratory results. Noemí Leigh MD LAB BODY FLUIDS AND STOOLS ORD ERABLES Final Result Performing Organization Address [facility]/ZIP Co de Phone Number [facility] [address] [place] [address] * (ABNORMAL) Glucose, CSF (12/06/2024 4:21 PM EDT) Glucose, CSF 86(H) 41 - 70 mg/dL 12/06/2024 9:49 PM EDT [facility] Cerebrospinal Fluid Lumbar puncture / Unknown Non-blood Collection / Unknown 12/06/2024 4:21 PM EDT 12/06/2024 6:36 PM EDT Narrative [facility] - 12/06/2024 9:49 PM EDT CSF glucose values should be approximately 60 % of the plasma values and must always be compared with concurrently measured plasma values for adequate clinical interpretation. No reference ranges have been established for pediatric patients. Noemí Leigh MD LAB BODY FLUIDS AND STOOLS ORD ERABLES Final Result Performing Organization Address City/[facility]/ZIP Co de Phone Number [facility] [address] [place] [address] * (ABNORMAL) CSF Cell Count w/ Manual Differential (12/06/2024 4:21 PM EDT) Unspun Color, CSF Colorless Colorless LAB HEMATOLOGY METHOD 12/06/2024 10:03 PM EDT [facility] Unspun Clarity, CSF Clear Clear LAB HEMATOLOGY METHOD 12/06/2024 10:03 PM EDT [facility] Spun Color, CSF LAB HEMATOLOGY METHOD 12/06/2024 10:03 PM EDT [facility] Comment:Test Not Indicated Spun Clarity, CSF LAB HEMATOLOGY METHOD 12/06/2024 10:03 PM EDT [facility] Comment:Test Not Indicated Volume CSF 5.0 cc LAB HEMATOLOGY METHOD 12/06/2024 10:03 PM EDT [facility] Tube Number, CSF Tube 4 LAB HEMATOLOGY METHOD 12/06/2024 10:03 PM EDT [facility] Red Blood Cell Count, CSF 7 0 uL uL LAB HEMATOLOGY METHOD 12/06/2024 10:03 PM EDT [facility] Comment:Test performed by ma nual method. Total Nucleated Cell Count, CSF 15(H) 0 - 5 L LAB HEMATOLOGY METHOD 12/06/2024 10:03 PM EDT [facility] Comment:Test performed by ma nual method. Neutrophils %, CSF 1 % LAB HEMATOLOGY METHOD 12/06/2024 10:03 PM EDT [facility] Lymphocytes %, CSF 84 % LAB HEMATOLOGY METHOD 12/06/2024 10:03 PM EDT [facility] Monocytes/Macro phages %, CSF 15 % LAB HEMATOLOGY METHOD 12/06/2024 10:03 PM EDT [facility] Eosinophils %, CSF 0 % LAB HEMATOLOGY METHOD 12/06/2024 10:03 PM EDT [facility] Basophils %, CSF 0 % LAB HEMATOLOGY METHOD 12/06/2024 10:03 PM EDT [facility] Neutrophils Absolute, CSF 0 uL LAB HEMATOLOGY METHOD 12/06/2024 10:03 PM EDT [facility] Lymphocytes Absolute, CSF 13 uL LAB HEMATOLOGY METHOD 12/06/2024 10:03 PM EDT [facility] Monocytes/Macro phages Absolute, CSF 2 uL LAB HEMATOLOGY METHOD 12/06/2024 10:03 PM EDT [facility] Eosinophils Absolute, CSF 0 uL LAB HEMATOLOGY METHOD 12/06/2024 10:03 PM EDT [facility] Basophils Absolute, CSF 0 uL LAB HEMATOLOGY METHOD 12/06/2024 10:03 PM EDT [facility] Comment, CSF None LAB HEMATOLOGY METHOD 12/06/2024 10:03 PM EDT [facility] Comment:This is an appended report. These results have been appended to a previously preliminary verified report. Cerebrospinal Fluid Lumbar puncture / Unknown Non-blood Collection / Unknown 12/06/2024 4:21 PM EDT 12/06/2024 6:34 PM EDT us Noemí Leigh MD LAB BODY FLUIDS AND STOOLS ORD ERABLES Final Result [facility] [address] [place] [address] * Non-Gynecologic Cytology (12/06/2024 4:21 PM EDT) Case Report Cytology Case: [id number] Authorizing Provider: Bernice Eckert MD Collected: 12/06/2024 1621 Ordering Location: [facility] A Inpatient Received: 12/07/2024 0842 Pathologist: Veronique Salas MD Specimen: Lumbar Puncture, CEREBROSPINAL FLUID 12/07/2024 5:19 PM EDT [facility] Final Diagnosis A. CEREBROSPINAL FLUID - NO EVIDENCE OF MALIGNANCY - CHRONIC INFLAMMATORY CELLS WITH PREDOMINANTLY LYMPHOCYTES 12/07/2024 5:19 PM EDT [facility] at 1719 EDT Clinical History angela, fever 12/07/2024 5:19 PM EDT [facility] Previous Cancer Yes 12/07/2024 5:19 PM EDT [facility] Previous Cancer Primary Site Lung Cancer 12/07/2024 5:19 PM EDT [facility] Gross Description A. CEREBROSPINAL FLUID 2 ml's of clear fluid in tube #1, 0.4 ml's of clear fluid in tube #2, 0.5 ml's of clear fluid in tube #3 and 0.1 ml's of clear fluid in tube #4 all for thinprep 12/07/2024 5:19 PM EDT [facility] Cerebrospinal Fluid Lumbar puncture / Unknown Non-blood Collection / Unknown 12/06/2024 4:21 PM EDT 12/07/2024 8:42 AM EDT us Bernice Eckert MD LAB CYTOLOGY ORDERABLES Final R esult [facility] [address] [place] [address] * CSF Panel (12/06/2024 4:21 PM EDT) Cerebrospinal Fluid Lumbar puncture / Unknown Non-blood Collection / Unknown 12/06/2024 4:21 PM EDT 12/06/2024 6:28 PM EDT us Bernice Eckert MD LAB BODY FLUIDS AND STOOLS BENNETT NAYAK Final Result Performing Organization Address City/[facility]/ZIP Co de Phone Number [facility] [address] [place] [address] * (ABNORMAL) POCT glucose meter (12/06/2024 12:23 PM EDT) POCT Glucose 181(H) 74 - 99 mg/dL 12/06/2024 12:25 PM EDT [facility] Comment:Accuracy of [...] to the main labortory for testing. Comment 12/06/2024 12:25 PM EDT [facility] Suction Dredge Dumping Supervisor ID Clyde Lemons 12/06/2024 12:25 PM EDT [facility] Device ID [id number] 12/06/2024 12:25 PM EDT [facility] Specimen Type POC Capillary 12/06/2024 12:25 PM EDT [facility] Blood Capillary blood specimen / Unknown 12/06/2024 12:23 PM EDT 12/06/2024 12:25 PM EDT us Noemí Leigh MD LAB POINT OF CARE TE ST DOCKED DEVICE UNSOLICITED RESULTS Final Result [facility] [address] [place] [address] * (ABNORMAL) POCT glucose meter (12/06/2024 8:33 AM EDT) POCT Glucose 187(H) 74 - 99 mg/dL 12/06/2024 8:35 AM EDT [facility] Comment:Accuracy of a glucos e result obtained from a capillary whole blood specimen relies upon adequate, non-compromised capillary blood flow. If the capillary glucose result is not consistent with the patient's clinical signs and symptoms, glucose testing should be repeated with either an arterial or venous sample on the glucometer or sent to the main labortory for testing. Comment 12/06/2024 8:35 AM EDT [facility] Suction Dredge Dumping Supervisor ID Clyde Lemons 12/06/2024 8:35 AM EDT [facility] Device ID [id number] 12/06/2024 8:35 AM EDT [facility] Specimen Type POC Capillary 12/06/2024 8:35 AM EDT [facility] Blood Capillary blood specimen / Unknown 12/06/2024 8:33 AM EDT 12/06/2024 8:35 AM EDT Noemí Leigh MD LAB POINT OF CARE TE ST DOCKED DEVICE UNSOLICITED RESULTS Final Result Performing Organization Address City/[facility] Co de Phone Number [facility] [address] [place] [address] * (ABNORMAL) Magnesium, Plasma (12/06/2024 3:34 AM EDT) Pathologist [facility] Magnesium, Plasma 1.7(L) 1.9 - 2.4 mg/dL 12/06/2024 4:33 AM EDT [facility] Blood Venous blood specimen / Unknown Venipuncture / Unknown 12/06/2024 3:34 AM EDT 12/06/2024 3:52 AM EDT us Noemí Leigh MD LAB BLOOD ORDERABLES Final Res ult Performing Organization Address City/[facility]/ZIP Co de Phone Number [facility] [address] [place] [address] * (ABNORMAL) Basic Metabolic Panel, Plasma (12/06/2024 3:34 AM EDT) Glucose, Plasma 140(H) 74 - 99 mg/dL 12/06/2024 4:33 AM EDT [facility] BUN, Plasma 10 8 - 23 mg/dL 12/06/2024 4:33 AM EDT [facility] Creatinine, Plasma 1.90(H) 0.60 - 1.10 mg/dL 12/06/2024 4:33 AM EDT [facility] BUN/Creatinine Ratio 5 12/06/2024 4:33 AM EDT [facility] Sodium, Plasma 137 136 - 145 mmol/L 12/06/2024 4:33 AM EDT [facility] Potassium, Plasma 3.0(L) 3.6 - 4.9 mmol/L 12/06/2024 4:33 AM EDT [facility] Chloride, Plasma 99 97 - 107 mmol/L 12/06/2024 4:33 AM EDT [facility] CO2, Plasma 26 22 - 29 mmol/L 12/06/2024 4:33 AM EDT [facility] Anion Gap 12 6 - 16 mmol/L 12/06/2024 4:33 AM EDT [facility] Total Calcium, Plasma 8.8(L) 8.9 - 10.2 mg/dL 12/06/2024 4:33 AM EDT [facility] eGFRcr 29.2 mL/min/1.7 3m*2 12/06/2024 4:33 AM EDT [facility] Comment:Reported eGFRcr in m L/min/1.73m2 is based the CKD-EPI 2020 equation that does not use a race coefficient. Blood Venous blood specimen / Unknown Venipuncture / Unknown 12/06/2024 3:34 AM EDT 12/06/2024 3:52 AM EDT us Noemí Leigh MD LAB BLOOD ORDERABLES Final Res ult [facility] [address] [place] [address] * (ABNORMAL) CBC W/O Differential (12/06/2024 3:34 AM EDT) WBC Count 7.07 3.70 - 10.30 10*3/uL LAB HEMATOLOGY METHOD 12/06/2024 4:08 AM EDT [facility] RBC Count 2.57(L) 3.90 - 5.20 10*6/uL LAB HEMATOLOGY METHOD 12/06/2024 4:08 AM EDT [facility] HGB 7.6(L) 11.2 - 15.7 g/dL LAB HEMATOLOGY METHOD 12/06/2024 4:08 AM EDT [facility] HCT 24.4(L) 34.0 - 45.0 % LAB HEMATOLOGY METHOD 12/06/2024 4:08 AM EDT [facility] Platelet Count 249 155 - 369 10*3/uL LAB HEMATOLOGY METHOD 12/06/2024 4:08 AM EDT [facility] MCV 95 79 - 98 fL LAB HEMATOLOGY METHOD 12/06/2024 4:08 AM EDT [facility] MCH 29.6 26.0 - 32.0 pg LAB HEMATOLOGY METHOD 12/06/2024 4:08 AM EDT [facility] MCHC 31.1 30.7 - 35.5 g/dL LAB HEMATOLOGY METHOD 12/06/2024 4:08 AM EDT [facility] RDW 18.6(H) 11.5 - 14.5 % LAB HEMATOLOGY METHOD 12/06/2024 4:08 AM EDT [facility] MPV 9.0 8.8 - 12.5 fL LAB HEMATOLOGY METHOD 12/06/2024 4:08 AM EDT [facility] nRBC 0.0 <=0.0 per 100 WBCs LAB HEMATOLOGY METHOD 12/06/2024 4:08 AM EDT [facility] Blood Venous blood specimen / Unknown Venipuncture / Unknown 12/06/2024 3:34 AM EDT 12/06/2024 3:52 AM EDT us Noemí Leigh MD LAB BLOOD ORDERABLES Final Res ult [facility] [address] [place] [address] * Vancomycin, random (12/06/2024 3:34 AM EDT) Vancomycin, Random, Plasma 32.4 ug/mL 12/06/2024 4:33 AM EDT [facility] Blood Venous blood specimen / Unknown Venipuncture / Unknown 12/06/2024 3:34 AM EDT 12/06/2024 3:52 AM EDT Noemí Leigh MD LAB BLOOD ORDERABLES Final Res ult Performing Organization Address City/[facility]/ZIP Co de Phone Number [facility] [address] [place] [address] * (ABNORMAL) POCT glucose meter (12/05/2024 9:34 PM EDT) POCT Glucose 139(H) 74 - 99 mg/dL 12/05/2024 9:35 PM EDT [facility] Comment:Accuracy of [...] to the main labortory for testing. Comment 12/05/2024 9:35 PM EDT [facility] Suction Dred[employer] Dumping Supervisor ID Erendira Christianson 12/06/19 9:35 PM EDT [facility] Device ID [id number] 12/05/2024 9:35 PM EDT [facility] Specimen Type POC Capillary 12/05/2024 9:35 PM EDT [facility] Blood Capillary blood specimen / Unknown 12/05/2024 9:34 PM EDT 12/05/2024 9:35 PM EDT Noemí Leigh MD LAB POINT OF CARE TE ST DOCKED DEVICE UNSOLICITED RESULTS Final Result Performing Organization Address City/[facility]/ZIP Co de Phone Number [facility] [address] [place] [address] * (ABNORMAL) POCT glucose meter (12/05/2024 5:21 PM EDT) POCT Glucose 171(H) 74 - 99 mg/dL 12/05/2024 5:23 PM EDT [facility] Comment:Accuracy of [...] to the main labortory for testing. Comment 12/05/2024 5:23 PM EDT [facility] Suction Dredge Dumping Supervisor ID Zahra Osborn 12/05/2024 5:23 PM EDT [facility] Device ID [id number] 12/05/2024 5:23 PM EDT [facility] Specimen Type POC Capillary 12/05/2024 5:23 PM EDT [facility] Blood Capillary blood specimen / Unknown 12/05/2024 5:21 PM EDT 12/05/2024 5:23 PM EDT us Noemí Leigh MD LAB POINT OF CARE TE ST DOCKED DEVICE UNSOLICITED RESULTS Final Result Performing Organization Address [facility] Co de Phone Number [facility] [address] [place] [address] * (ABNORMAL) Vancomycin, Peak, Plasma (12/05/2024 12:14 PM EDT) Vancomycin, Peak, Plasma 49.6(H) 20.0 - 40.0 ug/mL 12/05/2024 1:06 PM EDT [facility] Blood Venous blood specimen / Unknown Venipuncture / Unknown 12/05/2024 12:14 PM EDT 12/05/2024 12:37 PM EDT Narrative [facility] - 12/05/2024 1:06 PM EDT Therapeutic Peak level: 20-40ug/mL Supra-therapeutic Peak level: >40 ug/mL us Noemí Leigh MD LAB BLOOD ORDERABLES Final Res ult [facility] [address] [place] [address] * (ABNORMAL) POCT glucose meter (12/05/2024 11:41 AM EDT) POCT Glucose 147(H) 74 - 99 mg/dL 12/05/2024 11:43 AM EDT [facility] Comment:Accuracy of a glucos e result obtained from a capillary whole blood specimen relies upon adequate, non-compromised capillary blood flow. If the capillary glucose result is not consistent with the patient's clinical signs and symptoms, glucose testing should be repeated with either an arterial or venous sample on the glucometer or sent to the main labortory for testing. Comment 12/05/2024 11:43 AM EDT [facility] Suction Dredge Dumping Supervisor ID Zahra Osborn 12/05/2024 11:43 AM EDT [facility] Device ID [id number] 12/05/2024 11:43 AM EDT [facility] Specimen Type POC Capillary 12/05/2024 11:43 AM EDT [facility] Blood Capillary blood specimen / Unknown 12/05/2024 11:41 AM EDT 12/05/2024 11:43 AM EDT Noemí Leigh MD LAB POINT OF CARE TE ST DOCKED DEVICE UNSOLICITED RESULTS Final Result Performing Organization Address City/State/[facility] Co de Phone Number [facility] [address] [place] [address] * (ABNORMAL) POCT glucose meter (12/05/2024 8:07 AM EDT) [facility] Signature POCT Glucose 175(H) 74 - 99 mg/dL 12/05/2024 8:08 AM EDT [facility] Comment:Accuracy of [...] to the main labortory for testing. Comment 12/05/2024 8:08 AM EDT [facility] Suction Dredge Dumping Supervisor ID Zahra Osborn 12/05/2024 8:08 AM EDT [facility] Device ID [id number] 12/05/2024 8:08 AM EDT [facility] Specimen Type POC Capillary 12/05/2024 8:08 AM EDT [facility] Blood Capillary blood specimen / Unknown 12/05/2024 8:07 AM EDT 12/05/2024 8:08 AM EDT us Noemí Leigh MD LAB POINT OF CARE TE ST DOCKED DEVICE UNSOLICITED RESULTS Final Result Performing Organization Address City/[facility]/ZIP Co de Phone Number [facility] [address] [place] [address] * (ABNORMAL) Magnesium (12/05/2024 2:58 AM EDT) Magnesium, Plasma 1.5(L) 1.9 - 2.4 mg/dL 12/05/2024 7:45 AM EDT [facility] Blood Venous blood specimen / Unknown Venipuncture / Unknown 12/05/2024 2:58 AM EDT 12/05/2024 4:20 AM EDT us Noemí Leigh MD LAB BLOOD ORDERABLES Final Res ult Performing Organization Address [facility] Co de Phone Number [facility] [address] [place] [address] * (ABNORMAL) Basic Metabolic Panel, Plasma (12/05/2024 2:58 AM EDT) Glucose, Plasma 153(H) 74 - 99 mg/dL 12/05/2024 4:48 AM EDT [facility] BUN, Plasma 11 8 - 23 mg/dL 12/05/2024 4:48 AM EDT [facility] Creatinine, Plasma 2.31(H) 0.60 - 1.10 mg/dL 12/05/2024 4:48 AM EDT [facility] BUN/Creatinine Ratio 5 12/05/2024 4:48 AM EDT [facility] Sodium, Plasma 147(H) 136 - 145 mmol/L 12/05/2024 4:48 AM EDT [facility] Potassium, Plasma 3.5(L) 3.6 - 4.9 mmol/L 12/05/2024 4:48 AM EDT [facility] Chloride, Plasma 107 97 - 107 mmol/L 12/05/2024 4:48 AM EDT [facility] CO2, Plasma 28 22 - 29 mmol/L 12/05/2024 4:48 AM EDT [facility] Anion Gap 12 6 - 16 mmol/L 12/05/2024 4:48 AM EDT [facility] Total Calcium, Plasma 8.6(L) 8.9 - 10.2 mg/dL 12/05/2024 4:48 AM EDT [facility] eGFRcr 23.1 mL/min/1.7 3m*2 12/05/2024 4:48 AM EDT [facility] Comment:Reported eGFRcr in m L/min/1.73m2 is based the CKD-EPI 2020 equation that does not use a race coefficient. Blood Venous blood specimen / Unknown Venipuncture / Unknown 12/05/2024 2:58 AM EDT 12/05/2024 4:20 AM EDT us Noemí Leigh MD LAB BLOOD ORDERABLES Final Res ult [facility] [address] [place] [address] * (ABNORMAL) CBC W/O Differential (12/05/2024 2:58 AM EDT) WBC Count 6.68 3.70 - 10.30 10*3/uL LAB HEMATOLOGY METHOD 12/05/2024 4:29 AM EDT [facility] RBC Count 2.58(L) 3.90 - 5.20 10*6/uL LAB HEMATOLOGY METHOD 12/05/2024 4:29 AM EDT [facility] HGB 7.6(L) 11.2 - 15.7 g/dL LAB HEMATOLOGY METHOD 12/05/2024 4:29 AM EDT [facility] HCT 24.8(L) 34.0 - 45.0 % LAB HEMATOLOGY METHOD 12/05/2024 4:29 AM EDT [facility] Platelet Count 260 155 - 369 10*3/uL LAB HEMATOLOGY METHOD 12/05/2024 4:29 AM EDT [facility] MCV 96 79 - 98 fL LAB HEMATOLOGY METHOD 12/05/2024 4:29 AM EDT [facility] MCH 29.5 26.0 - 32.0 pg LAB HEMATOLOGY METHOD 12/05/2024 4:29 AM EDT [facility] MCHC 30.6(L) 30.7 - 35.5 g/dL LAB HEMATOLOGY METHOD 12/05/2024 4:29 AM EDT [facility] RDW 18.8(H) 11.5 - 14.5 % LAB HEMATOLOGY METHOD 12/05/2024 4:29 AM EDT [facility] MPV 9.4 8.8 - 12.5 fL LAB HEMATOLOGY METHOD 12/05/2024 4:29 AM EDT [facility] nRBC 0.0 <=0.0 per 100 WBCs LAB HEMATOLOGY METHOD 12/05/2024 4:29 AM EDT [facility] Blood Venous blood specimen / Unknown Venipuncture / Unknown 12/05/2024 2:58 AM EDT 12/05/2024 4:20 AM EDT us Noemí Leigh MD LAB BLOOD ORDERABLES Final Res ult Performing Organization Address City/[facility]/ZIP Co de Phone Number [facility] [address] [place] [address] * ECG Adult (12/04/2024 11:16 PM EDT) EKG DIAGNOSIS CLASS Abnormal MUSE ECG Ventricular Rate 142 BPM MUSE ECG QRSD Interval 88 ms MUSE ECG QT Interval 316 ms MUSE ECG QTC Interval 486 ms MUSE ECG R [place] -4 degrees MUSE ECG T Wave [place] 53 degrees MUSE ECG Diagnosis Atrial fibrillation with rapid ventricular response MUSE ECG Diagnosis Nonspecific ST and T wave abnormality MUSE ECG Diagnosis Abnormal ECG MUSE ECG Diagnosis MUSE ECG Diagnosis Confirmed by Herman Lima ([id number]) on 12/05/2024 4:36:57 PM MUSE ECG 12/04/2024 11:1 6 PM EDT 12/05/2024 4:36 PM EDT us Daily Pollock MD ECG ORDERABLES Final Result MUSE ECG * (ABNORMAL) POCT glucose meter (12/04/2024 7:57 PM EDT) POCT Glucose 165(H) 74 - 99 mg/dL 12/04/2024 7:59 PM EDT [facility] Comment:Accuracy of a glucos e result obtained from a capillary whole blood specimen relies upon adequate, non-compromised capillary blood flow. If the capillary glucose result is not consistent with the patient's clinical signs and symptoms, glucose testing should be repeated with either an arterial or venous sample on the glucometer or sent to the main labortory for testing. Comment 12/04/2024 7:59 PM EDT [facility] [employer] Supervisor ID Juan Castorena 025 7:59 PM EDT [facility] Device ID [id number] 12/04/2024 7:59 PM EDT [facility] Specimen Type POC Capillary 12/04/2024 7:59 PM EDT [facility] Blood Capillary blood specimen / Unknown 12/04/2024 7:57 PM EDT 12/04/2024 7:59 PM EDT Noemí Leigh MD LAB POINT OF CARE TE ST DOCKED DEVICE UNSOLICITED RESULTS Final Result Performing Organization Address City/[facility]/ZIP Co de Phone Number [facility] [address] [place] [address] * Vancomycin, random (12/04/2024 6:10 PM EDT) [facility] Vancomycin, Random, Plasma 22.1 ug/mL 12/04/2024 6:44 PM EDT [facility] Blood Venous blood specimen / Unknown Venipuncture / Unknown 12/04/2024 6:10 PM EDT 12/04/2024 6:16 PM EDT us Noemí Leigh MD LAB BLOOD ORDERABLES Final Res ult [facility] [address] [place] [address] * (ABNORMAL) POCT glucose meter (12/04/2024 5:25 PM EDT) [facility] POCT Glucose 147(H) 74 - 99 mg/dL 12/04/2024 5:29 PM EDT [facility] Comment:Accuracy of a glucos e result obtained from a capillary whole blood specimen relies upon adequate, non-compromised capillary blood flow. If the capillary glucose result is not consistent with the patient's clinical signs and symptoms, glucose testing should be repeated with either an arterial or venous sample on the glucometer or sent to the main labortory for testing. Comment 12/04/2024 5:29 PM EDT [facility] [employer] Supervisor ID Karlie Garcia 5:29 PM EDT [facility] Device ID [id number] 12/04/2024 5:29 PM EDT [facility] Specimen Type POC Capillary 12/04/2024 5:29 PM EDT [facility] Blood Capillary blood specimen / Unknown 12/04/2024 5:25 PM EDT 12/04/2024 5:29 PM EDT Noemí Leigh MD LAB POINT OF CARE TE ST DOCKED DEVICE UNSOLICITED RESULTS Final Result Performing Organization Address City/State[facility] Co de Phone Number [facility] [address] [place] [address] * (ABNORMAL) POCT glucose meter (12/04/2024 12:32 PM EDT) [facility] POCT Glucose 199(H) 74 - 99 mg/dL 12/04/2024 12:55 PM EDT [facility] Comment:Accuracy of a glucos e result obtained from a capillary whole blood specimen relies upon adequate, non-compromised capillary blood flow. If the capillary glucose result is not consistent with the patient's clinical signs and symptoms, glucose testing should be repeated with either an arterial or venous sample on the glucometer or sent to the main labortory for testing. Comment 12/04/2024 12:55 PM EDT [facility] [employer] Supervisor ID Karlie Garcia 12:55 PM EDT [facility] Device ID [id number] 12/04/2024 12:55 PM EDT [facility] Specimen Type POC Capillary 12/04/2024 12:55 PM EDT [facility] Blood Capillary blood specimen / Unknown 12/04/2024 12:32 PM EDT 12/04/2024 12:55 PM EDT us Noemí Leigh MD LAB POINT OF CARE TE ST DOCKED DEVICE UNSOLICITED RESULTS Final Result Performing Organization Address City/[facility] de Phone Number [facility] [address] [place] [address] * (ABNORMAL) POCT glucose meter (12/04/2024 8:39 AM EDT) POCT Glucose 169(H) 74 - 99 mg/dL 12/04/2024 8:54 AM EDT [facility] Comment:Accuracy of a glucos e result obtained from a capillary whole blood specimen relies upon adequate, non-compromised capillary blood flow. If the capillary glucose result is not consistent with the patient's clinical signs and symptoms, glucose testing should be repeated with either an arterial or venous sample on the glucometer or sent to the main labortory for testing. Comment 12/04/2024 8:54 AM EDT [facility] [employer] Supervisor ID Karlie Garcia 8:54 AM EDT [facility] Device ID [id number] 12/04/2024 8:54 AM EDT [facility] Specimen Type POC Capillary 12/04/2024 8:54 AM EDT [facility] Blood Capillary blood specimen / Unknown 12/04/2024 8:39 AM EDT 12/04/2024 8:54 AM EDT us Noemí Leigh MD LAB POINT OF CARE TE ST DOCKED DEVICE UNSOLICITED RESULTS Final Result Performing Organization Address City/[facility] Co de Phone Number [facility] [address] [place] [address] * (ABNORMAL) C-Reactive Protein, Plasma (12/04/2024 1:30 AM EDT) CRP, Plasma 49.9(H) <=8.0 mg/L 12/04/2024 3:04 AM EDT [facility] Blood Venous blood specimen / Unknown Venipuncture / Unknown 12/04/2024 1:30 AM EDT 12/04/2024 2:34 AM EDT Narrative [facility] - 12/04/2024 3:04 AM EDT This CRP test is appropriate for assessment of infection, systemic inflammation and/or tissue injury. To assess cardiovascular disease risk order high sensitivity CRP (CRPH). us Noemí Leigh MD LAB BLOOD ORDERABLES Final Res ult [facility] [address] [place] [address] * (ABNORMAL) Basic Metabolic Panel, Plasma (12/04/2024 1:30 AM EDT) Glucose, Plasma 147(H) 74 - 99 mg/dL 12/04/2024 3:04 AM EDT [facility] BUN, Plasma 14 8 - 23 mg/dL 12/04/2024 3:04 AM EDT [facility] Creatinine, Plasma 2.42(H) 0.60 - 1.10 mg/dL 12/04/2024 3:04 AM EDT [facility] BUN/Creatinine Ratio 6 12/04/2024 3:04 AM EDT [facility] Sodium, Plasma 144 136 - 145 mmol/L 12/04/2024 3:04 AM EDT [facility] Potassium, Plasma 3.8 3.6 - 4.9 mmol/L 12/04/2024 3:04 AM EDT [facility] Chloride, Plasma 106 97 - 107 mmol/L 12/04/2024 3:04 AM EDT [facility] CO2, Plasma 26 22 - 29 mmol/L 12/04/2024 3:04 AM EDT [facility] Anion Gap 12 6 - 16 mmol/L 12/04/2024 3:04 AM EDT [facility] Total Calcium, Plasma 8.4(L) 8.9 - 10.2 mg/dL 12/04/2024 3:04 AM EDT [facility] eGFRcr 21.8 mL/min/1.7 3m*2 12/04/2024 3:04 AM EDT [facility] Comment:Reported eGFRcr in m L/min/1.73m2 is based the CKD-EPI 2020 equation that does not use a race coefficient. Blood Venous blood specimen / Unknown Venipuncture / Unknown 12/04/2024 1:30 AM EDT 12/04/2024 2:34 AM EDT us Noemí Leigh MD LAB BLOOD ORDERABLES Final Res ult [facility] [address] [place] [address] * (ABNORMAL) CBC W/O Differential (12/04/2024 1:30 AM EDT) WBC Count 7.07 3.70 - 10.30 10*3/uL LAB HEMATOLOGY METHOD 12/04/2024 2:42 AM EDT [facility] RBC Count 2.55(L) 3.90 - 5.20 10*6/uL LAB HEMATOLOGY METHOD 12/04/2024 2:42 AM EDT [facility] HGB 7.5(L) 11.2 - 15.7 g/dL LAB HEMATOLOGY METHOD 12/04/2024 2:42 AM EDT [facility] HCT 24.4(L) 34.0 - 45.0 % LAB HEMATOLOGY METHOD 12/04/2024 2:42 AM EDT [facility] Platelet Count 242 155 - 369 10*3/uL LAB HEMATOLOGY METHOD 12/04/2024 2:42 AM EDT [facility] MCV 96 79 - 98 fL LAB HEMATOLOGY METHOD 12/04/2024 2:42 AM EDT [facility] MCH 29.4 26.0 - 32.0 pg LAB HEMATOLOGY METHOD 12/04/2024 2:42 AM EDT [facility] MCHC 30.7 30.7 - 35.5 g/dL LAB HEMATOLOGY METHOD 12/04/2024 2:42 AM EDT [facility] RDW 18.9(H) 11.5 - 14.5 % LAB HEMATOLOGY METHOD 12/04/2024 2:42 AM EDT [facility] MPV 9.4 8.8 - 12.5 fL LAB HEMATOLOGY METHOD 12/04/2024 2:42 AM EDT [facility] nRBC 0.0 <=0.0 per 100 WBCs LAB HEMATOLOGY METHOD 12/04/2024 2:42 AM EDT [facility] Blood Venous blood specimen / Unknown Venipuncture / Unknown 12/04/2024 1:30 AM EDT 12/04/2024 2:34 AM EDT Noemí Leigh MD LAB BLOOD ORDERABLES Final Res ult Performing Organization Address City/[facility]/ZIP Co de Phone Number [facility] [address] [place] [address] * (ABNORMAL) POCT glucose meter (12/03/2024 8:11 PM EDT) Pathologist [facility] POCT Glucose 145(H) 74 - 99 mg/dL 12/03/2024 8:13 PM EDT [facility] Comment:Accuracy of [...] to the main labortory for testing. Comment 12/03/2024 8:13 PM EDT [facility] [employer] Supervisor ID Taiwo Johnson 12/03/2024 8:13 PM EDT [facility] Device ID [id number] 12/03/2024 8:13 PM EDT [facility] Specimen Type POC Capillary 12/03/2024 8:13 PM EDT [facility] Blood Capillary blood specimen / Unknown 12/03/2024 8:11 PM EDT 12/03/2024 8:13 PM EDT Noemí Leigh MD LAB POINT OF CARE TE ST DOCKED DEVICE UNSOLICITED RESULTS Final Result Performing Organization Address City/[facility]/ZIP Co de Phone Number [facility] [address] [place] [address] * (ABNORMAL) POCT glucose meter (12/03/2024 5:31 PM EDT) [facility] POCT Glucose 205(H) 74 - 99 mg/dL 12/03/2024 5:33 PM EDT [facility] Comment:Accuracy of [...] to the main labortory for testing. Comment 12/03/2024 5:33 PM EDT [facility] [employer] Supervisor ID Cynthia Meza 025 5:33 PM EDT [facility] Device ID [id number] 12/03/2024 5:33 PM EDT [facility] Specimen Type POC Capillary 12/03/2024 5:33 PM EDT [facility] Blood Capillary blood specimen / Unknown 12/03/2024 5:31 PM EDT 12/03/2024 5:33 PM EDT us Noemí Leigh MD LAB POINT OF CARE TE ST DOCKED DEVICE UNSOLICITED RESULTS Final Result Performing Organization Address City/State[facility] Co de Phone Number [facility] [address] [place] [address] * (ABNORMAL) POCT glucose meter (12/03/2024 12:26 PM EDT) [facility] POCT Glucose 176(H) 74 - 99 mg/dL 12/03/2024 12:28 PM EDT [facility] Comment:Accuracy of [...] to the main labortory for testing. Comment 12/03/2024 12:28 PM EDT [facility] [employer] Supervisor ID Cynthia Meza 025 12:28 PM EDT [facility] Device ID [id number] 12/03/2024 12:28 PM EDT [facility] Specimen Type POC Capillary 12/03/2024 12:28 PM EDT [facility] Blood Capillary blood specimen / Unknown 12/03/2024 12:26 PM EDT 12/03/2024 12:28 PM EDT us Noemí Leigh MD LAB POINT OF CARE TE ST DOCKED DEVICE UNSOLICITED RESULTS Final Result Performing Organization Address City/[facility]/ZIP Co de Phone Number [facility] [address] [place] [address] * (ABNORMAL) POCT glucose meter (12/03/2024 8:28 AM EDT) POCT Glucose 176(H) 74 - 99 mg/dL 12/03/2024 8:29 AM EDT [facility] Comment:Accuracy of [...] to the main labortory for testing. Comment 12/03/2024 8:29 AM EDT [facility] [employer] Supervisor ID Cynthia Meza 025 8:29 AM EDT [facility] Device ID [id number] 12/03/2024 8:29 AM EDT [facility] Specimen Type POC Capillary 12/03/2024 8:29 AM EDT [facility] Blood Capillary blood specimen / Unknown 12/03/2024 8:28 AM EDT 12/03/2024 8:29 AM EDT Noemí Leigh MD LAB POINT OF CARE TE ST DOCKED DEVICE UNSOLICITED RESULTS Final Result Performing Organization Address [facility] Co de Phone Number [facility] [address] [place] [address] * XR Chest 1 View (12/03/2024 6:05 AM EDT) Anatomical Region Laterality Modality Chest Digital Radiogra phy Impressions 12/03/2024 9:44 AM EDT Improved right upper lobe opacity. CRITICAL RESULT: No. COMMUNICATION: Per this written report Drafted by Chalo Medina MD on 12/03/2024 9:44 AM Final report signed by Chalo Medina MD on 12/03/2024 9:44 AM Narrative 12/03/2024 9:44 AM EDT CLINICAL INDICATION: fever TECHNIQUE: XR CHEST 1 VIEW COMPARISON: November 29, 2024 FINDINGS: No new consolidation. Some previously noted right suprahilar opacity is improved but not entirely resolved. Procedure Note Chalo Medina MD - 12/03/2024 CLINICAL INDICATION: fever TECHNIQUE: XR CHEST 1 VIEW COMPARISON: November 29, 2024 FINDINGS: No new consolidation. Some previously noted right suprahilar opacity isimproved but not entirely resolved. IMPRESSION: Improved right upper lobe opacity. CRITICAL RESULT: No. COMMUNICATION: Per this written report Drafted by Chalo Medina MD on 12/03/2024 9:44 AM Final report signed by Chalo Medina MD on 12/03/2024 9:44 AM Yolande Rosas MD IMG XR PROCEDURES Final Result * Magnesium (12/03/2024 12:30 AM EDT) Pathologist [facility] Magnesium, Plasma 1.9 1.9 - 2.4 mg/dL 12/03/2024 3:22 PM EDT [facility] Blood Venous blood specimen / Unknown Venipuncture / Unknown 12/03/2024 12:30 AM EDT 12/03/2024 12:46 AM EDT Noemí Leigh MD LAB BLOOD ORDERABLES Final Res ult Performing Organization Address City/[facility]/ZIP Co de Phone Number [facility] [address] [place] [address] * Lactate, venous (12/03/2024 12:30 AM EDT) Lactate, Venous, Whole Blood 0.7 0.5 - 2.2 mmol/L LAB HEMATOLOGY METHOD 12/03/2024 12:45 AM EDT [facility] Blood Venous blood specimen / Unknown Venipuncture / Unknown 12/03/2024 12:30 AM EDT 12/03/2024 12:43 AM EDT us Yolande Rosas MD LAB BLOOD ORDERABLES Final Resu lt Performing Organization Address City/[facility]/ZIP Co de Phone Number [facility] [address] [place] [address] * (ABNORMAL) Procalcitonin (12/03/2024 12:30 AM EDT) Procalcitonin, Plasma 0.34(H) <0.09 ng/mL 12/03/2024 1:24 AM EDT [facility] Blood Venous blood specimen / Unknown Venipuncture / Unknown 12/03/2024 12:30 AM EDT 12/03/2024 12:46 AM EDT Narrative [facility] - 12/03/2024 1:24 AM EDT Procalcitonin concentrations in healthy individuals are [...] predict 28 day mortality risk. Please consult [email or web address] for more information. Test performed at [facility]. us Yolande Rosas MD LAB BLOOD ORDERABLES Final Resu lt [facility] [address] [place] [address] * Blood Culture (Aerobic/Anaerobet Set) (12/03/2024 12:30 AM EDT) Blood Venous blood specimen / Unknown Venipuncture / Unknown 12/03/2024 12:30 AM EDT 12/03/2024 1:01 AM EDT Narrative [facility] - 12/03/2024 2:26 PM EDT BLOOD CULTURE SET SENT WITH TWO DIFFERENT ACCESSION NUMBERS. REFER TO [facility]- [id number] FOR BLOOD CULTURE SET. A CREDIT HAS BEEN ISSUED FOR DUPLICATE ORDER 12/03 TS Yolande Rosas MD LAB MICROBIOLOGY - [facility]AL [facility] Final Result [facility] [address] [place] [address] * Blood Culture (Aerobic/Anaerobet Set) (12/03/2024 12:30 AM EDT) Pathologist [facility] Culture No growth at day 5 DONAVAN 12/08/2024 3:02 PM EDT [facility] Blood Venous blood specimen / Unknown Venipuncture / Unknown 12/03/2024 12:30 AM EDT 12/03/2024 2:13 PM EDT us Yolande Rosas MD LAB MICROBIOLOGY - GENERAL ORDE MALINI Final Result Performing Organization Address [facility] Co de Phone Number [facility] [address] [place] [address] * (ABNORMAL) Basic Metabolic Panel, Plasma (12/03/2024 12:30 AM EDT) Glucose, Plasma 148(H) 74 - 99 mg/dL 12/03/2024 1:24 AM EDT [facility] BUN, Plasma 16 8 - 23 mg/dL 12/03/2024 1:24 AM EDT [facility] Creatinine, Plasma 2.64(H) 0.60 - 1.10 mg/dL 12/03/2024 1:24 AM EDT [facility] BUN/Creatinine Ratio 6 12/03/2024 1:24 AM EDT [facility] Sodium, Plasma 141 136 - 145 mmol/L 12/03/2024 1:24 AM EDT [facility] Potassium, Plasma 3.6 3.6 - 4.9 mmol/L 12/03/2024 1:24 AM EDT [facility] Chloride, Plasma 103 97 - 107 mmol/L 12/03/2024 1:24 AM EDT [facility] CO2, Plasma 27 22 - 29 mmol/L 12/03/2024 1:24 AM EDT [facility] Anion Gap 11 6 - 16 mmol/L 12/03/2024 1:24 AM EDT [facility] Total Calcium, Plasma 8.5(L) 8.9 - 10.2 mg/dL 12/03/2024 1:24 AM EDT [facility] eGFRcr 19.7 mL/min/1.7 3m*2 12/03/2024 1:24 AM EDT [facility] Comment:Reported eGFRcr in m L/min/1.73m2 is based the CKD-EPI 2020 equation that does not use a race coefficient. Blood Venous blood specimen / Unknown Venipuncture / Unknown 12/03/2024 12:30 AM EDT 12/03/2024 12:46 AM EDT us Noemí Leigh MD LAB BLOOD ORDERABLES Final Res ult [facility] [address] [place] [address] * (ABNORMAL) CBC W/O Differential (12/03/2024 12:30 AM EDT) WBC Count 8.11 3.70 - 10.30 10*3/uL LAB HEMATOLOGY METHOD 12/03/2024 12:59 AM EDT [facility] RBC Count 2.72(L) 3.90 - 5.20 10*6/uL LAB HEMATOLOGY METHOD 12/03/2024 12:59 AM EDT [facility] HGB 7.8(L) 11.2 - 15.7 g/dL LAB HEMATOLOGY METHOD 12/03/2024 12:59 AM EDT [facility] HCT 25.8(L) 34.0 - 45.0 % LAB HEMATOLOGY METHOD 12/03/2024 12:59 AM EDT [facility] Platelet Count 239 155 - 369 10*3/uL LAB HEMATOLOGY METHOD 12/03/2024 12:59 AM EDT [facility] MCV 95 79 - 98 fL LAB HEMATOLOGY METHOD 12/03/2024 12:59 AM EDT [facility] MCH 28.7 26.0 - 32.0 pg LAB HEMATOLOGY METHOD 12/03/2024 12:59 AM EDT [facility] MCHC 30.2(L) 30.7 - 35.5 g/dL LAB HEMATOLOGY METHOD 12/03/2024 12:59 AM EDT [facility] RDW 19.0(H) 11.5 - 14.5 % LAB HEMATOLOGY METHOD 12/03/2024 12:59 AM EDT [facility] MPV 9.4 8.8 - 12.5 fL LAB HEMATOLOGY METHOD 12/03/2024 12:59 AM EDT [facility] nRBC 0.0 <=0.0 per 100 WBCs LAB HEMATOLOGY METHOD 12/03/2024 12:59 AM EDT [facility] Blood Venous blood specimen / Unknown Venipuncture / Unknown 12/03/2024 12:30 AM EDT 12/03/2024 12:46 AM EDT us Noemí Leigh MD LAB BLOOD ORDERABLES Final Res ult Performing Organization Address [facility]/ZIP Co de Phone Number [facility] [address] [place] [address] * Methicillin Resistant Staphylococcus aureus (MRSA) by PCR (12/03/2024 12:15 AM EDT) Pathologist [facility] Methicillin Resistant Staphylococcus aureus (MRSA) by PCR Not Detected Not Detected 12/03/2024 2:31 AM EDT [facility] Swab Both anterior nares / Unknown Non-blood Collection / Unknown 12/03/2024 12:15 AM EDT 12/03/2024 1:06 AM EDT Narrative [facility] - 12/03/2024 2:31 AM EDT This test is FDA approved for use with nares swab specimens using the eSwabs. This test is used for clinical purposes. It should not be regarded as investigational or for research. This laboratory is certified under the Clinical Laboratory improvement Amendments of 1988 (CLIA-88 as qualified to perform high complexity clinical laboratory testing. us Yolande Rosas MD LAB MICROBIOLOGY - GENERAL ORDE [place] [address] * (ABNORMAL) POCT glucose meter (12/02/2024 8:35 PM EDT) POCT Glucose 182(H) 74 - 99 mg/dL 12/02/2024 8:36 PM EDT [facility] Comment:Accuracy of [...] to the main labortory for testing. Comment 12/02/2024 8:36 PM EDT [facility] [employer] Supervisor ID Erendira Christianson 12/03/19 8:36 PM EDT [facility] Device ID [id number] 12/02/2024 8:36 PM EDT [facility] Specimen Type POC Capillary 12/02/2024 8:36 PM EDT [facility] Blood Capillary blood specimen / Unknown 12/02/2024 8:35 PM EDT 12/02/2024 8:36 PM EDT Noemí Leigh MD LAB POINT OF CARE TE ST DOCKED DEVICE UNSOLICITED RESULTS Final Result [facility] [address] [place] [address] * (ABNORMAL) POCT glucose meter (12/02/2024 5:51 PM EDT) [facility] POCT Glucose 213(H) 74 - 99 mg/dL 12/02/2024 5:53 PM EDT [facility] Comment:Accuracy of [...] to the main labortory for testing. Comment 12/02/2024 5:53 PM EDT [facility] [employer] Supervisor ID Cynthia Meza 025 5:53 PM EDT [facility] Device ID [id number] 12/02/2024 5:53 PM EDT [facility] Specimen Type POC Capillary 12/02/2024 5:53 PM [facility] Blood Capillary blood specimen / Unknown 12/02/2024 5:51 PM EDT 12/02/2024 5:53 PM EDT Noemí Leigh MD LAB POINT OF CARE TE ST DOCKED DEVICE UNSOLICITED RESULTS Final Result Performing Organization Address [facility] de Phone Number [facility] [address] [place] [address] * (ABNORMAL) POCT glucose meter (12/02/2024 11:49 AM EDT) POCT Glucose 152(H) 74 - 99 mg/dL 12/02/2024 11:50 AM EDT [facility] Comment:Accuracy of [...] to the main labortory for testing. Comment 12/02/2024 11:50 AM EDT [facility] Suction Dredge Dumping Supervisor ID MercedesMichell grimmPaxton lyles 12/02/2024 11:50 AM EDT [facility] Device ID [id number] 12/02/2024 11:50 AM EDT [facility] Specimen Type POC Capillary 12/02/2024 11:50 AM EDT [facility] Blood Capillary blood specimen / Unknown 12/02/2024 11:49 AM EDT 12/02/2024 11:50 AM EDT us Noemí Leigh MD LAB POINT OF CARE TE ST DOCKED DEVICE UNSOLICITED RESULTS Final Result Performing Organization Address [facility] de Phone Number [facility] [address] [place] [address] * (ABNORMAL) POCT glucose meter (12/02/2024 6:46 AM EDT) POCT Glucose 144(H) 74 - 99 mg/dL 12/02/2024 6:48 AM EDT [facility] Comment:Accuracy of [...] to the main labortory for testing. Comment 12/02/2024 6:48 AM EDT [facility] Suction Dredge Dumping Supervisor ID Nancy Quintero 025 6:48 AM EDT [facility] Device ID [id number] 12/02/2024 6:48 AM EDT [facility] Specimen Type POC Capillary 12/02/2024 6:48 AM EDT [facility] Blood Capillary blood specimen / Unknown 12/02/2024 6:46 AM EDT 12/02/2024 6:48 AM EDT Noemí Leigh MD LAB POINT OF CARE TE ST DOCKED DEVICE UNSOLICITED RESULTS Final Result Performing Organization Address City/[facility] Co de Phone Number [facility] [address] [place] [address] * (ABNORMAL) POCT glucose meter (12/02/2024 5:39 AM EDT) [facility] POCT Glucose 135(H) 74 - 99 mg/dL 12/02/2024 5:41 AM EDT [facility] Comment:Accuracy of [...] to the main labortory for testing. Comment 12/02/2024 5:41 AM EDT [facility] Suction Dredge Dumping Supervisor ID Nancy Quintero 025 5:41 AM EDT [facility] Device ID [id number] 12/02/2024 5:41 AM EDT [facility] Specimen Type POC Capillary 12/02/2024 5:41 AM EDT [facility] Blood Capillary blood specimen / Unknown 12/02/2024 5:39 AM EDT 12/02/2024 5:41 AM EDT us Noemí Leigh MD LAB POINT OF CARE TE ST DOCKED DEVICE UNSOLICITED RESULTS Final Result [facility] [address] [place] [address] * (ABNORMAL) Basic Metabolic Panel, Plasma (12/02/2024 3:44 AM EDT) Glucose, Plasma 161(H) 74 - 99 mg/dL 12/02/2024 4:42 AM EDT [facility] BUN, Plasma 18 8 - 23 mg/dL 12/02/2024 4:42 AM EDT [facility] Creatinine, Plasma 2.82(H) 0.60 - 1.10 mg/dL 12/02/2024 4:42 AM EDT [facility] BUN/Creatinine Ratio 6 12/02/2024 4:42 AM EDT [facility] Sodium, Plasma 142 136 - 145 mmol/L 12/02/2024 4:42 AM EDT [facility] Potassium, Plasma 4.1 3.6 - 4.9 mmol/L 12/02/2024 4:42 AM EDT [facility] Chloride, Plasma 104 97 - 107 mmol/L 12/02/2024 4:42 AM EDT [facility] CO2, Plasma 27 22 - 29 mmol/L 12/02/2024 4:42 AM EDT [facility] Anion Gap 11 6 - 16 mmol/L 12/02/2024 4:42 AM EDT [facility] Total Calcium, Plasma 8.7(L) 8.9 - 10.2 mg/dL 12/02/2024 4:42 AM EDT [facility] eGFRcr 18.2 mL/min/1.7 3m*2 12/02/2024 4:42 AM EDT [facility] Comment:Reported eGFRcr in m L/min/1.73m2 is based the CKD-EPI 2020 equation that does not use a race coefficient. Blood Venous blood specimen / Unknown Venipuncture / Unknown 12/02/2024 3:44 AM EDT 12/02/2024 4:09 AM EDT us Noemí Leigh MD LAB BLOOD ORDERABLES Final Res ult [facility] [address] * MR Head w and wo IV Contrast (12/02/2024 12:30 AM EDT) Anatomical Region Laterality Modality Head Magnetic Resonan ce Impressions 12/02/2024 2:34 AM EDT Restaging of small cell lung cancer. 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 Again noted is a small amount of intraparenchymal hemorrhage in the perirolandic region along the resection margin. * Unchanged abundant dural thickening and enhancement subjacent to the craniotomy site which could reflect a combination of posttreatment changes and reactive changes. A superimposed infectious process could be considered in the appropriate clinical setting. * Residual cleft of enhancing tissue along the left falx which may reflect residual or recurrent tumor. * There is no evidence of new or enlarging intracranial hemorrhage or acute infarction. CRITICAL RESULT: No. COMMUNICATION: Per this written report. 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 A coronal post-contrast 1mm thick T1-weighted 3D MP RAGE sequence was performed and multiplanar reformatted images were created. Imaging was performed with and without contrast administration: 12.1 mL of Gadavist. COMPARISON: Brain MRI 10/13/2024 FINDINGS: Diagnostic Quality: Mild motion degradation of postcontrast MPRAGE. 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 Thin fluid collection subjacent to the craniotomy site. Unchanged abundant irregular dural thickening and enhancement subjacent to the craniotomy site and overlying the left frontal convexity. There is persistent hemorrhage in the left perirolandic region demonstrating susceptibility and intrinsic T1 hyperintensity. There is a residual thin cleft of enhancing tissue along the left aspect of the falx measuring 0.5 cm (S14:21). No midline shift, mass effect, new parenchymal hemorrhage, or evidence of acute infarct. There are nonspecific punctate and patchy T2/FLAIR hyperintensities in the periventricular and subcortical white matter which may represent sequela of small vessel disease. No extra-axial fluid collections. Basal cisterns are patent. No hydrocephalus. There is mild prominence of the sulci, cisterns, and ventricles suggestive of generalized brain parenchymal volume loss without a regional predominance. The callosal angle is obtuse. Vascular Flow Voids: The V4 segment of the left vertebral artery is diminutive and not well visualized. Remaining flow voids are intact. Paranasal Sinuses and Mastoid Air Cells: Left septal deviation. Mild mucosal thickening of the maxillary sinuses. Moderate mucosal thickening of the left sphenoid sinus. Mild mucosal thickening of the right sphenoid sinus. Mild mucosal thickening of the ethmoid air cells. Scattered T2 hyperintensities of the mastoid air cells. Orbits: No definite masses within the limitations of the study. Extracranial Findings: None. Craniocervical Junction and Skull Base: No tonsillar ectopia or mass is present. Procedure Note Brian Coats MD - 12/02/2024 CLINICAL INDICATION: Neuro deficit, persistent/recurrent, [employer]IRE[employer] PL[employer] SPECIALIST neoplasm suspected TECHNIQUE: Multiplanar multiecho sequences were performed through the brain utilizingT1 and T2 weighting, as well as either axial susceptibility weighted orgradient echo sequences, and axial diffusion weighted images. A coronalpost-contrast 1mm thick T1- weighted 3D MP RAGE sequence was performed andmultiplanar reformatted images were created. Imaging was performed withand without contrast administration: 12.1 mL of Gadavist. COMPARISON: Brain MRI 10/13/2024 FINDINGS: Diagnostic Quality: Mild motion degradation of postcontrast MPRAGE. Again noted are postsurgical changes related to left parietal craniotomyfor resection of an extra-axial metastasis along the left aspect of thefalx. Thin fluid collection subjacent to the craniotomy site. Unchangedabundant irregular dural thickening and enhancement subjacent to thecraniotomy site and overlying the left frontal convexity. There ispersistent hemorrhage in the left perirolandic region demonstratingsusceptibility and intrinsic T1 hyperintensity. There is a residual thincleft of enhancing tissue along the left aspect of the falx measuring 0.5cm (S14:21). No midline shift, mass effect, new parenchymal hemorrhage, or evidence ofacute infarct. There are nonspecific punctate and patchy T2/FLAIRhyperintensities in the periventricular and subcortical white matter whichmay represent sequela of small vessel disease. No extra-axial fluid collections. Basal cisterns are patent. Nohydrocephalus. There is mild prominence of the sulci, cisterns, andventricles suggestive of generalized brain parenchymal volume loss withouta regional predominance. The callosal angle is obtuse. Vascular Flow Voids: The V4 segment of the left vertebral artery isdiminutive and not well visualized. Remaining flow voids are intact. Paranasal Sinuses and Mastoid Air Cells: Left septal deviation. Mildmucosal thickening of the maxillary sinuses. Moderate mucosal thickeningof the left sphenoid sinus. Mild mucosal thickening of the right sphenoidsinus. Mild mucosal thickening of the ethmoid air cells. Scattered [id number] of the mastoid air cells. Orbits: No definite masses within the limitations of the study. Extracranial Findings: None. Craniocervical Junction and Skull Base: No tonsillar ectopia or mass ispresent. IMPRESSION: Restaging of small cell lung cancer. Compared to most recent prior, brainMRI 10/13/2024: *Postsurgical changes related to left parietal craniotomy for resectionof an extra-axial metastasis. Again noted is a small amount ofintraparenchymal hemorrhage in the perirolandic region along the resectionmargin. *Unchanged abundant dural thickening and enhancement subjacent to thecraniotomy site which could reflect a combination of posttreatment changesand reactive changes. A superimposed infectious process could beconsidered in the appropriate clinical setting. *Residual cleft of enhancing tissue along the left falx which may reflectresidual or recurrent tumor. *There is no evidence of new or enlarging intracranial hemorrhage oracute infarction. CRITICAL RESULT: No. COMMUNICATION: Per this written report. Drafted by Brian Coats MD on 12/02/2024 2:16 AM Final report signed by Brian Coats MD on 12/02/2024 2:34 AM us Noemí Leigh MD IMG MRI PROCEDURES Final Resul t * (ABNORMAL) POCT glucose meter (12/01/2024 9:47 PM EDT) Pathologist [facility] POCT Glucose 147(H) 74 - 99 mg/dL 12/01/2024 9:51 PM EDT [facility] Comment:Accuracy of [...] to the main labortory for testing. Comment 12/01/2024 9:51 PM EDT [facility] Suction Dredge Dumping Supervisor ID Nancy Quintero 025 9:51 PM EDT [facility] Device ID [id number] 12/01/2024 9:51 PM EDT [facility] Specimen Type POC Capillary 12/01/2024 9:51 PM EDT [facility] Blood Capillary blood specimen / Unknown 12/01/2024 9:47 PM EDT 12/01/2024 9:51 PM EDT us Noemí Leigh MD LAB POINT OF CARE TE ST DOCKED DEVICE UNSOLICITED RESULTS Final Result Performing Organization Address City/State/[facility] Co de Phone Number [facility] [address] [place] [address] * EKG now - STAT (adult) (12/01/2024 7:12 PM EDT) [facility] EKG DIAGNOSIS CLASS Borderline Abnormal MUSE ECG Ventricular Rate 76 BPM MUSE ECG Atrial Rate 76 BPM MUSE ECG NH Interval 138 ms MUSE ECG QRSD Interval 90 ms MUSE ECG QT Interval 398 ms MUSE ECG QTC Interval 447 ms MUSE ECG P [place] 52 degrees MUSE ECG R [place] 1 degrees MUSE ECG T Wave [place] 23 degrees MUSE ECG Diagnosis Normal sinus rhythm MUSE ECG Diagnosis Low voltage QRS MUSE ECG Diagnosis MUSE ECG Diagnosis MUSE ECG Diagnosis Confirmed by Malik Webb ([id number]) on 12/02/2024 10:34:42 AM MUSE ECG 12/01/2024 7:12 PM EDT 12/02/2024 10:34 AM EDT us Noemí Leigh MD ECG ORDERABLES Final Result MUSE ECG * (ABNORMAL) Respiratory Culture and Gram Stain (12/01/2024 6:07 PM EDT) Culture Moderate Growth 11:03 AM EDT [facility] Culture 3+ Pseudomonas aeruginosa MDR, RAILWAY TRACK WORKER(AA) DONAVAN 12/07/2024 11:03 AM EDT [facility] Comment: This isolate has been identified using the FDA Approved Craft Dragoner CA System The organism value for this result has been updated. These results have been appended to the previously preliminary verified report. Edited result: Previously reported as Gram Negative Bruno on 12/04/2024 at 1300 EDT. Edited result: Previously reported as Pseudomonas aeruginosa on 12/06/2024 at 0925 EDT. This is a corrected result. Previous organism was Pseudomonas aeruginosa MDR on 12/06/2024 at 1029 EDT. Culture 2+ Mixed upper respiratory sweetie(A) DONAVAN 12/07/2024 11:03 AM EDT [facility] Comment:The organism value f or this result has been updated. These results have been appended to the previously preliminary verified report. Gram Stain Result Fewer than 10 Epithelial cells/LPF(A) 12/07/2024 11:03 AM EDT [facility] Gram Stain Result Fewer than 25 WBC/LPF(A) 12/07/2024 11:03 AM EDT [facility] Gram Stain Result Moderate Budding yeast(A) 12/07/2024 11:03 AM EDT [facility] Gram Stain Result Moderate Gram positive cocci in pairs(A) 12/07/2024 11:03 AM EDT [facility] Gram Stain Result Few Gram positive cocci in clusters(A) 12/07/2024 11:03 AM EDT [facility] Sputum Coughed sputum specimen / Unknown Non-blood Collection / Unknown 12/01/2024 6:07 PM EDT 12/01/2024 6:28 PM EDT Narrative Organism Antibiotic Method Susceptibility Pseudomonas aeruginosa MDR, RAILWAY TRACK WORKER Aztreonam DONAVAN 8 ug/ml: Susceptible Pseudomonas aeruginosa MDR, RAILWAY TRACK WORKER Cefepime DONAVAN 8 ug/ml: Susceptible Pseudomonas aeruginosa MDR, RAILWAY TRACK WORKER Levofloxacin DONAVAN >4 ug/ml: Resistant Pseudomonas aeruginosa MDR, RAILWAY TRACK WORKER Piperacillin/Tazobactam DONAVAN 32/4 ug/ml: Intermediate Pseudomonas aeruginosa MDR, RAILWAY TRACK WORKER Tobramycin DONAVAN >8 ug/ml: Resistant Pseudomonas aeruginosa MDR, RAILWAY TRACK WORKER Meropenem ETEST 32.0 ug/ml: Resistant us Jay Nicolas MATERIAL CONTROL MANAGER, DNP LAB MICROBIOLOGY - GENER AL ORDERABLES Final Result Performing Organization Address City/[facility]/ZIP Co de Phone Number [facility] [address] [place] [address] * (ABNORMAL) POCT glucose meter (12/01/2024 5:13 PM EDT) POCT Glucose 195(H) 74 - 99 mg/dL 12/01/2024 5:16 PM EDT [facility] Comment:Accuracy of [...] to the main labortory for testing. Comment 12/01/2024 5:16 PM EDT [facility] Suction Dredge Dumping Supervisor ID Kelli Valadez 12/01/2024 5:16 PM EDT [facility] Device ID [id number] 12/01/2024 5:16 PM EDT [facility] Specimen Type POC Capillary 12/01/2024 5:16 PM EDT [facility] Blood Capillary blood specimen / Unknown 12/01/2024 5:13 PM EDT 12/01/2024 5:16 PM EDT us Noemí Leigh MD LAB POINT OF CARE TE ST DOCKED DEVICE UNSOLICITED RESULTS Final Result Performing Organization Address City/[facility]/ZIP Co de Phone Number [facility] [address] [place] [address] * (ABNORMAL) POCT glucose meter (12/01/2024 1:08 PM EDT) POCT Glucose 137(H) 74 - 99 mg/dL 12/01/2024 1:10 PM EDT [facility] Comment:Accuracy of [...] to the main labortory for testing. Comment 12/01/2024 1:10 PM EDT [facility] Suction Dredge Dumping Supervisor ID Kelli Valadez 12/01/2024 1:10 PM EDT [facility] Device ID [id number] 12/01/2024 1:10 PM EDT [facility] Specimen Type POC Capillary 12/01/2024 1:10 PM EDT [facility] Blood Capillary blood specimen / Unknown 12/01/2024 1:08 PM EDT 12/01/2024 1:10 PM EDT us oNemí Leigh MD LAB POINT OF CARE TE ST DOCKED DEVICE UNSOLICITED RESULTS Final Result Performing Organization Address City/State/[facility] Co de Phone Number [facility] [address] [place] [address] * EEG (12/01/2024 12:59 PM EDT) Anatomical Region Laterality Modality EEG Narrative 12/01/2024 11:48 PM EDT Table formatting from the original result was not included. Electroencephalogram Report Patient: Teresa Rivera : 1960 SEX: female Referring Provider: Noemí Leigh MD EEG Reading Physician: Shawna Juárez MD Study Type: Routine Begin Date: 12/01/2024 Begin Time: 12:36 PM End Date: 12/01/2024 End Time: 12:59 PM Total EEG Recording Time: 23 minutes Indication for study: Concern for seizures SEIZURE HISTORY: Teresa Rivera is a 64 y.o. 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 Medications: Current Medications[1] ROUTINE-EEG MONITORING METHODOLOGY: This is a routine EEG with monitoring using 21-channel recordings (unless otherwise specified) in a 10/20 system with [employer] software and hardware. Additional electrodes: none FT9/FT10: no Other: none The seizure detection computer was used for detection of ictal discharges (subclinical and clinical), interictal discharges, and to record ictal events that were documented by depression of the event button in the patient's room. Analyses of the monitoring data were performed using the following techniques: 1. Review of the relevant video-EEG data. 2. Review of events detected by the computer system in detail. 3. Review of clinical seizures, with both detailed review of EEG and video and playback using multiple montages. A variety of referential and bipolar montages were used. Results of the monitoring were related to the treating team frequently throughout the study, at least once a day to help guide treatment via verbal or written communication. Updates and response to treatment were communicated as requested by the requesting physician or the team. CLINICAL AND EEG ANALYSIS INTERICTAL EEG DESCRIPTION: State of patient: awake Awake 100% Sleep: none Awake background: 9 hz PDR noted. In anterior regions frontocentral beta was noted. EMG artifact prominent in the study Posterior dominant rhythm: 9Hz Voltage: 30-40 uV Organization: well organised Reactivity to eye opening/closure: good Sleep background: Stages 1 of sleep were not attained. ACTIVATION PROCEDURES: none Hyperventilation: No hyperventilation was performed Photic stimulation: Photic stimulation was not performed Reactivity to stimulation: reactive NONEPILEPTIFORM INTERICTAL ABNORMALITIES None EPILEPTIFORM INTERICTAL ABNORMALITIES None ICTAL / EVENT DESCRIPTION: Clinical Description: none EEG Description: none Abnormalities: None CLINICAL INTERPRETATION: This is a normal awake EEG. Absence of epileptiform discharges does not rule out epilepsy. If clinical suspicion is high , and EMU admission may be requested for characterization of spells. Shawna Juárez MD Support Teacher [facility] [phone] [1] No current facility-administered medications for this visit. Current Outpatient Medications Medication Sig Dispense Refill acetaminophen (Tylenol) 325 MG tablet Take 2 tablets by mouth every 6 hours. Under [place] law, monthly prescriptions (30 days) can be refilled at 25 days and three-month prescriptions (90 days) at 80 days. Please contact the insurance company with questions if refills are denied. (Patient taking differently: Take 2 tablets by mouth every 6 hours.) 100 tablet 0 atorvastatin (Lipitor) 40 MG tablet Take 1 tablet by mouth every evening. Bactrim DS 800-160 MG tablet every 12 hours. Uqvsgtp-Bxkctmugadf-Gijqxvwyxr (Breztri Aerosphere) 160-9-4.8 MCG/ACT aerosol Inhale 2 puffs 2 (two) times a day. Calcium Carb-Cholecalciferol 600-10 MG-MCG tablet Take 1 tablet by mouth daily. calcium carbonate (Tums) 500 MG chewable tablet Chew 1 tablet 4 times a day as needed for indigestion or heartburn. carvedilol (Coreg) 25 MG tablet take 1 tablet 2 times each day cetirizine (ZyrTEC) 10 MG tablet Take 1 tablet by mouth daily. empagliflozin (Jardiance) 25 MG take 1 tablet 1 time each day estradiol (Estrace) 0.1 MG/GM vaginal cream Insert 2 g into the vagina daily. ferrous sulfate 325 (65 Fe) MG tablet Take 1 tablet by mouth daily with breakfast. fluconazole (Diflucan) 200 MG tablet TAKE 1 TABLET 1 TIME EACH DAY FOR 7 DAYS FLUoxetine (PROzac) 40 MG capsule Take 1 capsule by mouth daily. furosemide (Lasix) 40 MG tablet TAKE 1 TABLET BY MOUTH ONCE DAILY FOR LEG SWELLLING gabapentin (Neurontin) 600 MG tablet Take 1 [...] Inject 25 Units under the skin nightly. lidocaine (Xylocaine) 5 % ointment Apply 2 times a day. 30 g 0 losartan (Cozaar) 25 MG tablet Take 1 tablet by mouth daily. magic mouthwash BLM (FIRST-Mouthwash) suspension Swish and spit 15 mL 4 times a day before meals and nightly for 3 days. (Patient taking differently: Swish and spit 15 mL 4 times a day as needed for mucositis.) 180 mL 0 magnesium oxide (Mag-Ox) 400 [...] mouth 2 times a day. 60 tablet 0 montelukast (Singulair) 10 MG tablet Take 1 tablet by mouth nightly. mupirocin (Bactroban) 2 % ointment Apply on head 2 times a day (Patient taking differently: Apply 1 Application topically 2 times a day. Apply on head 2 times a day) 22 g 0 NovoLOG FLEXPEN 100 UNIT/ML injection pen Sliding scale three times a day with corrections and meals; BS 150-199=2units; BS 200-249=4units; BS 250-229=6units; 300-349=8 units; 350-399=10 units; anything greater than 399=12units max of 36units daily nystatin (Mycostatin) 844152 UNIT/GM powder Apply on bottom 2 times a day 30 g 0 ofloxacin (Floxin) 0.3 % otic solution 1 (one) time each day at the same time. ondansetron (Zofran) 8 MG tablet Take 1 [...] for nausea or vomiting. 30 tablet 3 rivaroxaban (Xarelto) 20 MG tablet Take 1 tablet by mouth 1 time each day with dinner. Take with food. [Paused] rOPINIRole (Requip) 1 MG tablet Take 1 tablet by mouth 2 times a day. SITagliptin (Januvia) 50 MG tablet Take 1 tablet by mouth every morning. spironolactone (Aldactone) 25 MG tablet Take 1 tablet by mouth. [Paused] triamterene-hydrochlorothiazide (Maxzide-25) 37.5-25 MG tablet Take 1 tablet by mouth every morning. Vitamin B-12 ER 1000 MCG tablet controlled-release Take 1 tablet by mouth Daily. Facility-Administered Medications Ordered in Other Visits Medication Dose Route Frequency Provider Last Rate Last Admin acetaminophen (Tylenol) tablet 650 mg 650 mg Oral q6h PRN Jay Nicolas APRN, DNP 650 mg at 11/30/24 2133 calcium carbonate (Tums) chewable tablet 500 mg 500 mg Oral 4x daily PRN Jay Nicolas APRN, DNP calcium-vitamin D 500-200 MG-UNIT per tablet 1 tablet 1 tablet Oral Daily Jay Nicolas APRN, DNP 1 tablet at 12/01/24 0900 cetirizine (ZyrTEC) tablet 5 mg 5 mg Oral Daily Jay Nicolas APRN, DNP 5 mg at 12/01/24 0857 cyanocobalamin (Vitamin B-12) tablet 1,000 mcg 1,000 mcg Oral Daily Jay Nicolas APRN, DNP 1,000 mcg at 12/01/24 08 glucose (Glutose) 40 % oral gel 15-30 grams of glucose 15-30 grams of glucose Sublingual q15 min PRN Jay Nicolas APRN, DNP Or dextrose 10 % (D10W) bolus 125 mL 125 mL Intravenous q15 min PRN Jay Nicolas APRN, DNP Or dextrose 10 % (D10W) bolus 250 mL 250 mL Intravenous q15 min PRN Jay Nicolas APRN, DNP Or glucagon (human recombinant) injection 1 mg 1 mg Intramuscular q15 min PRN Jay Nicolas APRN, DNP ferrous sulfate EC tablet 324 mg 324 mg Oral Daily with breakfast Jay Nicolas APRN, DNP 324 mg at 12/01/24 0857 FLUoxetine (PROzac) capsule 40 mg 40 mg Oral Daily Jay Nicolas APRN, DNP 40 mg at 12/01/24 08 gabapentin (Neurontin) capsule 100 mg 100 mg Oral 4x daily Noemí Leigh MD 100 mg at 12/01/24 08 hydrOXYzine HCl (Atarax) tablet 25 mg 25 mg Oral TID PRN Jay Nicolas APRN, DNP insulin lispro (Admelog) 100 units/mL injection - Correction - Standard Dose 0-5 Units Subcutaneous TID with meals Jay Nicolas APRN, DNP 1 Units at 12/01/24 1205 insulin lispro (Admelog) injection - Correction - Nighttime Dose 0-3 Units Subcutaneous Twice at night Jay Nicolas APRN, DNP ipratropium-albuterol (Duo-Neb) 0.5-2.5 mg/3 mL nebulizer solution 3 mL 3 mL Nebulization q4h PRN Jay Nicolas APRN, DNP levETIRAcetam (Keppra) tablet 500 mg 500 mg Oral BID Ulysses Nolasco DO 500 mg at 12/01/24 0857 magic butt balm (Cholestyramine) ointment 1 Application Topical q1h PRN Jay Nicolas APRN, DNP magic mouthwash BLM (FIRST-Mouthwash) suspension 15 mL 15 mL Swish & Spit 4x daily PRN Jay Nicolas APRN, DNP magnesium oxide (Mag-Ox) tablet 400 mg 400 mg Oral BID Jay Nicolas APRN, DNP 400 mg at 12/01/24 0857 melatonin tablet 6 mg 6 mg Oral Nightly Jay Nicolas APRN, DNP 6 mg at 11/30/24 2124 metoprolol tartrate (Lopressor) tablet 50 mg 50 mg Oral BID Jay Nicolas APRN, DNP 50 mg at 12/01/24 0857 Tiotropium [place] Monohydrate (Spiriva Respimat) 2.5 MCG/ACT inhaler 2 puff 2 puff Inhalation Daily Jay Nicolas APRN, DNP 2 puff at 12/01/24 0900 And mometasone-formoterol (Dulera 200) 200-5 MCG/ACT inhaler 2 puff 2 puff Inhalation BID Jay Nicolas APRN, DNP 2 puff at 12/01/24 0902 montelukast (Singulair) tablet 10 mg 10 mg Oral Nightly Jay Nicolas APRN, DNP 10 mg at 11/30/24 2124 mupirocin (Bactroban) 2 % ointment 1 Application 1 Application Topical BID Jay Nicolas APRN, DNP 1 Application at 12/01/24 0857 nystatin (Mycostatin) 261993 UNIT/GM powder Topical BID Jay Nicolas APRN, DNP Given at 12/01/24 0900 pantoprazole (Protonix) EC tablet 40 mg 40 mg Oral Daily Jay Nicolas APRN, DNP 40 mg at 12/01/24 0857 polyethylene glycol (Miralax) packet 17 g 17 g Oral BID PRN Jay Nicolas APRN, DNP prochlorperazine (Compazine) tablet 10 mg 10 mg Oral q6h PRN Jay Nicolas APRN, DNP [Held by provider] rivaroxaban (Xarelto) tablet 20 mg 20 mg Oral Daily with dinner Jay Nicolas APRN, DNP sodium chloride 0.9 % flush 10 mL 10 mL Intravenous q12h Jay Nicolas APRN, DNP 10 mL at 12/01/24 0900 And sodium chloride 0.9 % flush 10 mL 10 mL Intravenous PRN Jay Nicolas APRN, DNP Noemí Leigh MD NEUROLOGY ORDERABLES Final Res ult * (ABNORMAL) POCT glucose meter (12/01/2024 11:17 AM EDT) [facility] POCT Glucose 163(H) 74 - 99 mg/dL 12/01/2024 11:18 AM EDT [facility] Comment:Accuracy of [...] to the main labortory for testing. Comment 12/01/2024 11:18 AM EDT [facility] [employer] D[employer] Supervisor ID Kelli Valadez 12/01/2024 11:18 AM EDT [facility] Device ID [id number] 12/01/2024 11:18 AM EDT [facility] Specimen Type POC Capillary 12/01/2024 11:18 AM EDT [facility] Blood Capillary blood specimen / Unknown 12/01/2024 11:17 AM EDT 12/01/2024 11:18 AM EDT Noemí Leigh MD LAB POINT OF CARE TE ST DOCKED DEVICE UNSOLICITED RESULTS Final Result Performing Organization Address [facility] de Phone Number [facility]ARE [facility] [address] [place] [address] * (ABNORMAL) POCT glucose meter (12/01/2024 7:39 AM EDT) POCT Glucose 162(H) 74 - 99 mg/dL 12/01/2024 7:40 AM EDT [facility] Comment:Accuracy of a glucos e result obtained from a capillary whole blood specimen relies upon adequate, non-compromised capillary blood flow. If the capillary glucose result is not consistent with the patient's clinical signs and symptoms, glucose testing should be repeated with either an arterial or venous sample on the glucometer or sent to the main labortory for testing. Comment 12/01/2024 7:40 AM EDT [facility] Su[employer] Dumping Supervisor ID Kelli Valadez 12/01/2024 7:40 AM EDT [facility] Device ID [id number] 12/01/2024 7:40 AM EDT [facility] Specimen Type POC Capillary 12/01/2024 7:40 AM EDT [facility] Blood Capillary blood specimen / Unknown 12/01/2024 7:39 AM EDT 12/01/2024 7:40 AM EDT us Noemí Leigh MD LAB POINT OF CARE TE ST DOCKED DEVICE UNSOLICITED RESULTS Final Result Performing Organization Address [facility] de Phone Number [facility]ARE [facility] [address] [place] [address] * (ABNORMAL) Cystatin C (12/01/2024 5:02 AM EDT) Cystatin C 2.03(H) 0.61 - 0.95 mg/L 12/01/2024 8:31 AM EDT [facility] Blood Venous blood specimen / Unknown Venipuncture / Unknown 12/01/2024 5:02 AM EDT 12/01/2024 5:19 AM EDT us Noemí Leigh MD LAB BLOOD ORDERABLES Final Res ult Performing Organization Address City/[facility]/ZIP Co de Phone Number [facility] [address] [place] [address] * (ABNORMAL) Basic Metabolic Panel, Plasma (12/01/2024 5:02 AM EDT) Glucose, Plasma 139(H) 74 - 99 mg/dL 12/01/2024 5:52 AM EDT [facility] BUN, Plasma 19 8 - 23 mg/dL 12/01/2024 5:52 AM EDT [facility] Creatinine, Plasma 3.00(H) 0.60 - 1.10 mg/dL 12/01/2024 5:52 AM EDT [facility] BUN/Creatinine Ratio 6 12/01/2024 5:52 AM EDT [facility] Sodium, Plasma 141 136 - 145 mmol/L 12/01/2024 5:52 AM EDT [facility] Potassium, Plasma 4.3 3.6 - 4.9 mmol/L 12/01/2024 5:52 AM EDT [facility] Chloride, Plasma 102 97 - 107 mmol/L 12/01/2024 5:52 AM EDT [facility] CO2, Plasma 28 22 - 29 mmol/L 12/01/2024 5:52 AM EDT [facility] Anion Gap 11 6 - 16 mmol/L 12/01/2024 5:52 AM EDT [facility] Total Calcium, Plasma 8.2(L) 8.9 - 10.2 mg/dL 12/01/2024 5:52 AM EDT [facility] eGFRcr 16.9 mL/min/1.7 3m*2 12/01/2024 5:52 AM EDT [facility] Comment:Reported eGFRcr in m L/min/1.73m2 is based the CKD-EPI 2020 equation that does not use a race coefficient. Blood Venous blood specimen / Unknown Venipuncture / Unknown 12/01/2024 5:02 AM EDT 12/01/2024 5:19 AM EDT us Noemí Leigh MD LAB BLOOD ORDERABLES Final Res ult [facility] [address] [place] [address] * (ABNORMAL) CBC W/O Differential (12/01/2024 5:02 AM EDT) WBC Count 8.48 3.70 - 10.30 10*3/uL LAB HEMATOLOGY METHOD 12/01/2024 5:38 AM EDT [facility] RBC Count 2.82(L) 3.90 - 5.20 10*6/uL LAB HEMATOLOGY METHOD 12/01/2024 5:38 AM EDT [facility] HGB 8.3(L) 11.2 - 15.7 g/dL LAB HEMATOLOGY METHOD 12/01/2024 5:38 AM EDT [facility] HCT 26.6(L) 34.0 - 45.0 % LAB HEMATOLOGY METHOD 12/01/2024 5:38 AM EDT [facility] Platelet Count 203 155 - 369 10*3/uL LAB HEMATOLOGY METHOD 12/01/2024 5:38 AM EDT [facility] MCV 94 79 - 98 fL LAB HEMATOLOGY METHOD 12/01/2024 5:38 AM EDT [facility] MCH 29.4 26.0 - 32.0 pg LAB HEMATOLOGY METHOD 12/01/2024 5:38 AM EDT [facility] MCHC 31.2 30.7 - 35.5 g/dL LAB HEMATOLOGY METHOD 12/01/2024 5:38 AM EDT [facility] RDW 19.9(H) 11.5 - 14.5 % LAB HEMATOLOGY METHOD 12/01/2024 5:38 AM EDT [facility] MPV 9.6 8.8 - 12.5 fL LAB HEMATOLOGY METHOD 12/01/2024 5:38 AM EDT [facility] nRBC 0.0 <=0.0 per 100 WBCs LAB HEMATOLOGY METHOD 12/01/2024 5:38 AM EDT [facility] Blood Venous blood specimen / Unknown Venipuncture / Unknown 12/01/2024 5:02 AM EDT 12/01/2024 5:22 AM EDT us Noemí Leigh MD LAB BLOOD ORDERABLES Final Res ult [facility] [address] [place] [address] * (ABNORMAL) POCT glucose meter (11/30/2024 9:11 PM EDT) [facility] POCT Glucose 147(H) 74 - 99 mg/dL 11/30/2024 9:13 PM EDT [facility] Comment:Accuracy of [...] to the main labortory for testing. Comment 11/30/2024 9:13 PM EDT [facility] [employer] Supervisor ID Goran Soledad 12/01/19 9:13 PM EDT [facility] Device ID [id number] 11/30/2024 9:13 PM EDT [facility] Specimen Type POC Capillary 11/30/2024 9:13 PM EDT [facility] Blood Capillary blood specimen / Unknown 11/30/2024 9:11 PM EDT 11/30/2024 9:13 PM EDT Noemí Leihg MD LAB POINT OF CARE TE ST DOCKED DEVICE UNSOLICITED RESULTS Final Result Performing Organization Address [facility] Co de Phone Number [facility] [address] [place] [address] * (ABNORMAL) POCT glucose meter (11/30/2024 5:25 PM EDT) [facility] POCT Glucose 163(H) 74 - 99 mg/dL 11/30/2024 6:02 PM EDT [facility] Comment:Accuracy of [...] to the main labortory for testing. Comment 11/30/2024 6:02 PM EDT [facility] Su[employer] Supervisor ID Ruperto Mai 025 6:02 PM EDT [facility] Device ID [id number] 11/30/2024 6:02 PM EDT [facility] Specimen Type POC Capillary 11/30/2024 6:02 PM EDT [facility] Blood Capillary blood specimen / Unknown 11/30/2024 5:25 PM EDT 11/30/2024 6:02 PM EDT Noemí Leigh MD LAB POINT OF CARE TE ST DOCKED DEVICE UNSOLICITED RESULTS Final Result [facility] [address] [place], [place] [id number] * US Renal Complete (11/30/2024 12:47 PM EDT) Anatomical Region Laterality Modality Kidney Ultrasound Impressions 11/30/2024 2:15 PM EDT No hydronephrosis. CRITICAL RESULT: No. COMMUNICATION: Per this written report. Preliminary report signed by Ashu Fontana MD on 11/30/2024 1:32 PM By electronically signing this report, I, the attending physician, attest that I have personally reviewed the images/data for the above examination(s) and agree with the final edited report. Drafted by Ashu Fontana MD on 11/30/2024 1:26 PM Final report signed by Anna Dee MD on 11/30/2024 2:15 PM Narrative 11/30/2024 2:15 PM EDT CLINICAL INDICATION: Acute renal failure TECHNIQUE: Multiplanar static and cine meek scale ultrasound images of the kidneys and urinary bladder were obtained, accompanied by selective color Doppler ultrasound images. COMPARISON: 11/18/2024 CT abdomen pelvis FINDINGS: Right Kidney: Normal in size and echogenicity. Length 12.9 cm. No hydronephrosis or obvious calculi. Multiple renal cysts, some which appear to be septated, measuring up to 3.6 cm.. Left Kidney: Normal in size and echogenicity. Length 13.5 cm. No hydronephrosis or obvious calculi. The known small left renal cysts are poorly visualized and exophytic cyst at the interpolar region is seen on cine 8. Urinary bladder: Somewhat decompressed but grossly unremarkable. Procedure Note Anna Dee MD - 11/30/2024 CLINICAL INDICATION: Acute renal failure TECHNIQUE: Multiplanar static and cine meek scale ultrasound images of the kidneysand urinary bladder were obtained, accompanied by selective color Dopplerultrasound images. COMPARISON: 11/18/2024 CT abdomen pelvis FINDINGS: Right Kidney: Normal in size and echogenicity. Length 12.9 cm. Nohydronephrosis or obvious calculi. Multiple renal cysts, some which appearto be septated, measuring up to 3.6 cm.. Left Kidney: Normal in size and echogenicity. Length 13.5 cm. Nohydronephrosis or obvious calculi. The known small left renal cysts arepoorly visualized and exophytic cyst at the interpolar region is seen oncine 8. Urinary bladder: Somewhat decompressed but grossly unremarkable. IMPRESSION: No hydronephrosis. CRITICAL RESULT: No. COMMUNICATION: Per this written report. Preliminary report signed by Ashu Fontana MD on 11/30/2024 1:32 PM By electronically signing this report, I, the attending physician, attestthat I have personally reviewed the images/data for the aboveexamination(s) and agree with the final edited report. Drafted by Ashu Fontana MD on 11/30/2024 1:26 PM Final report signed by Anna Dee MD on 11/30/2024 2:15 PM us Noemí Leigh MD IMG US PROCEDURES Final Result * (ABNORMAL) CBC W/O Differential (11/30/2024 12:10 PM EDT) WBC Count 7.50 3.70 - 10.30 10*3/uL LAB HEMATOLOGY METHOD 11/30/2024 12:24 PM EDT [facility] RBC Count 2.76(L) 3.90 - 5.20 10*6/uL LAB HEMATOLOGY METHOD 11/30/2024 12:24 PM EDT [facility] HGB 8.1(L) 11.2 - 15.7 g/dL LAB HEMATOLOGY METHOD 11/30/2024 12:24 PM EDT [facility] HCT 25.5(L) 34.0 - 45.0 % LAB HEMATOLOGY METHOD 11/30/2024 12:24 PM EDT [facility] Platelet Count 186 155 - 369 10*3/uL LAB HEMATOLOGY METHOD 11/30/2024 12:24 PM EDT [facility] MCV 92 79 - 98 fL LAB HEMATOLOGY METHOD 11/30/2024 12:24 PM EDT [facility] MCH 29.3 26.0 - 32.0 pg LAB HEMATOLOGY METHOD 11/30/2024 12:24 PM EDT [facility] MCHC 31.8 30.7 - 35.5 g/dL LAB HEMATOLOGY METHOD 11/30/2024 12:24 PM EDT [facility] RDW 20.3(H) 11.5 - 14.5 % LAB HEMATOLOGY METHOD 11/30/2024 12:24 PM EDT [facility] MPV 9.9 8.8 - 12.5 fL LAB HEMATOLOGY METHOD 11/30/2024 12:24 PM EDT [facility] nRBC 0.0 <=0.0 per 100 WBCs LAB HEMATOLOGY METHOD 11/30/2024 12:24 PM EDT [facility] Blood Venous blood specimen / Unknown Venipuncture / Unknown 11/30/2024 12:10 PM EDT 11/30/2024 12:22 PM EDT us Noemí Leigh MD LAB BLOOD ORDERABLES Final Res ult [facility] [address] [place] [address] * (ABNORMAL) POCT glucose meter (11/30/2024 10:36 AM EDT) [facility] POCT Glucose 164(H) 74 - 99 mg/dL 11/30/2024 10:38 AM EDT [facility] Comment:Accuracy of a glucos e result obtained from a capillary whole blood specimen relies upon adequate, non-compromised capillary blood flow. If the capillary glucose result is not consistent with the patient's clinical signs and symptoms, glucose testing should be repeated with either an arterial or venous sample on the glucometer or sent to the main labortory for testing. Comment 11/30/2024 10:38 AM EDT [facility] [employer] Dumping Supervisor ID Ruperto Mai 025 10:38 AM EDT [facility] Device ID [id number] 11/30/2024 10:38 AM EDT [facility] Specimen Type POC Capillary 11/30/2024 10:38 AM EDT [facility] Blood Capillary blood specimen / Unknown 11/30/2024 10:36 AM EDT 11/30/2024 10:38 AM EDT us Noemí Leigh MD LAB POINT OF CARE TE ST DOCKED DEVICE UNSOLICITED RESULTS Final Result [facility] [address] [place] [address] * VAS US Venous Duplex Lower Extremity Bilateral (11/30/2024 7:43 AM EDT) Anatomical Region Laterality Modality Lower Extremities Bilateral Ultrasound Impressions 11/30/2024 9:44 AM EDT Right: Normal study; no evidence of acute DVT is identified. Left: Normal study; no evidence of acute DVT is identified. COMMUNICATION: Per this written report. Preliminary report signed by Anum Hurley RVT on 11/30/2024 7:45 AM By electronically signing this report, I, the attending physician, attest that I have personally reviewed the images/data for the above examination(s) and I agree with the final edited report. Drafted by Anum Hurley RVT on 11/30/2024 7:44 AM Final report signed by Laura Meeks MD on 11/30/2024 9:44 AM Narrative 11/30/2024 9:44 AM EDT CLINICAL INDICATION: Acute limb swelling TECHNIQUE: Non-invasive, real time duplex exam of the lower extremity venous circulation with Doppler ultrasonic waveform and spectral analysis was performed. COMPARISON: None. FINDINGS: Right: Venous duplex demonstrates compressible common femoral, femoral, popliteal, posterior tibial and peroneal veins. The venous spectral analysis demonstrates a spontaneous, phasic, augmentable and nonpulsatile flow signal. Left: Venous duplex demonstrates compressible common femoral, femoral, popliteal, posterior tibial and peroneal veins. The venous spectral analysis demonstrates a spontaneous, phasic, augmentable and nonpulsatile flow signal. Procedure Note Laura Meeks MD - 11/30/2024 CLINICAL INDICATION: Acute limb swelling TECHNIQUE: Non-invasive, real time duplex exam of the lower extremity venouscirculation with Doppler ultrasonic waveform and spectral analysis wasperformed. COMPARISON: None. FINDINGS: Right: Venous duplex demonstrates compressible common femoral, femoral,popliteal, posterior tibial and peroneal veins. The venous spectralanalysis demonstrates a spontaneous, phasic, augmentable and nonpulsatileflow signal. Left: Venous duplex demonstrates compressible common femoral, femoral,popliteal, posterior tibial and peroneal veins. The venous spectralanalysis demonstrates a spontaneous, phasic, augmentable and nonpulsatileflow signal. IMPRESSION: Right: Normal study; no evidence of acute DVT is identified. Left: Normal study; no evidence of acute DVT is identified. COMMUNICATION: Per this written report. Preliminary report signed by Anum Hurley RVT on 11/30/2024 7:45 AM By electronically signing this report, I, the attending physician, attestthat I have personally reviewed the images/data for the aboveexamination(s) and I agree with the final edited report. Drafted by Anum Hurley RVT on 11/30/2024 7:44 AM Final report signed by Laura Meeks MD on 11/30/2024 9:44 AM Jay Nicolas APRN, DNP CV VASCULAR PROCEDURES F inal Result * (ABNORMAL) Troponin T, High Sensitivity, 2 Hour, Plasma (11/30/2024 6:31 AM EDT) Troponin T, High Sensitivity, 2 Hour 40(H) <14 ng/L 11/30/2024 7:15 AM EDT [facility] Troponin Delta 1 <10 ng/L 11/30/2024 7:15 AM EDT [facility] Troponin Delta Interpretation Not Significant 11/30/2024 7:15 AM EDT [facility] Comment:Not Significant. No acute change in troponin observed between the baseline and 2 hour samples. Blood Venous blood specimen / Unknown Venipuncture / Unknown 11/30/2024 6:31 AM EDT 11/30/2024 6:44 AM EDT [facility] BLOOD ORDERABLES Fin al Result [facility] [address] [place] [address] * Transfuse RBC (11/30/2024 6:08 AM EDT) us Jay Nicolas MATERIAL CONTROL MANAGER, DNP BLOOD TRANSFUSION ORDERA BLES Final Result * Transfuse RBC: 1 Units (11/30/2024 6:08 AM EDT) [facility] BLOOD TRANSFUSION ORDERA BLES Final Result * (ABNORMAL) POCT glucose meter (11/30/2024 6:05 AM EDT) POCT Glucose 147(H) 74 - 99 mg/dL 11/30/2024 6:07 AM EDT [facility] Comment:Accuracy of [...] to the main labortory for testing. Comment 11/30/2024 6:07 AM EDT [facility] Su[employer] Dumping Supervisor ID Sherman Ovalles 11/30/2024 6:07 AM EDT [facility] Device ID [id number] 11/30/2024 6:07 AM EDT [facility] Specimen Type POC Capillary 11/30/2024 6:07 AM EDT [facility] Blood Capillary blood specimen / Unknown 11/30/2024 6:05 AM EDT 11/30/2024 6:07 AM EDT us Nilson Jimenez MD LAB POINT OF CARE TE ST DOCKED DEVICE UNSOLICITED RESULTS Final Result [facility] [address] [place] [address] * ECG Adult (11/30/2024 3:55 AM EDT) EKG DIAGNOSIS CLASS Abnormal MUSE ECG Ventricular Rate 88 BPM MUSE ECG Atrial Rate 88 BPM MUSE ECG NH Interval 140 ms MUSE ECG QRSD Interval 88 ms MUSE ECG QT Interval 402 ms MUSE ECG QTC Interval 487 ms MUSE ECG P [place] 65 degrees MUSE ECG R [place] 6 degrees MUSE ECG T Wave [place] 34 degrees MUSE ECG Diagnosis Normal sinus rhythm MUSE ECG Diagnosis Possible Left atrial enlargement MUSE ECG Diagnosis Incomplete right bundle branch block MUSE ECG Diagnosis Abnormal ECG MUSE ECG Diagnosis MUSE ECG Diagnosis Confirmed by Jeff Jackson ([id number]) on 11/30/2024 7:29:48 AM MUSE ECG 11/30/2024 3:55 AM EDT 11/30/2024 7:29 AM EDT Jay Nicolas APRN, [facility] ECG ORDERABLES Final Re sult Performing Organization Address City/[facility] Co de Phone Number MUSE ECG * Prepare Leukocyte Reduced RBC: 1 Units, Leukocyte reduced (CMV reduced risk) (11/30/2024 3:50 AM EDT) Product Code [id number] CH BLOO D BANK Dispense Status Transfused BLOOD BANK Blood Expiration Date [id number] BLOOD BANK Unit Number [id number] B LOOD BANK Product Blood Type 5100 BLOOD BANK Blood Type O+ BLOOD BANK Crossmatch Compatible BLOOD BANK Other us Jay Nicolas APRN, [facility] BLOOD BANK PRODUCT ORDER SOLOMON Final Result Performing Organization Address [facility] Co de Phone Number BLOOD BANK [address] [place] [address], * (ABNORMAL) POCT glucose meter (11/30/2024 2:41 AM EDT) POCT Glucose 151(H) 74 - 99 mg/dL 11/30/2024 2:43 AM EDT [facility] Comment:Accuracy of a glucos e result obtained from a capillary whole blood specimen relies upon adequate, non-compromised capillary blood flow. If the capillary glucose result is not consistent with the patient's clinical signs and symptoms, glucose testing should be repeated with either an arterial or venous sample on the glucometer or sent to the main labortory for testing. Comment 11/30/2024 2:43 AM EDT [facility] Su[employer] Dumping Supervisor ID Sherman Ovalles 11/30/2024 2:43 AM EDT [facility]ALTH[facility]ARE LAB Device ID [id number] 11/30/2024 2:43 AM EDT [facility] Specimen Type POC Capillary 11/30/2024 2:43 AM EDT [facility] Blood Capillary blood specimen / Unknown 11/30/2024 2:41 AM EDT 11/30/2024 2:43 AM EDT us Nilson Jimenez MD LAB POINT OF CARE TE ST DOCKED DEVICE UNSOLICITED RESULTS Final Result Performing Organization Address City/[facility]/ZIP Co de Phone Number [facility]ALTH[facility]ARE [facility] [address] [place] [address] * Blood Culture (Aerobic/Anaerobet Set) (11/30/2024 2:32 AM EDT) Culture No growth at day 5 12/05/2024 4:03 AM EDT [facility] Blood Venous blood specimen / Unknown Venipuncture / Unknown 11/30/2024 2:32 AM EDT 11/30/2024 3:17 AM EDT us Jay Nicolas APRN, [facility] LAB MICROBIOLOGY - GENER AL ORDERABLES Final Result Performing Organization Address City/[facility] [place] [address] * Creatine Kinase (CK), Total (11/30/2024 2:09 AM EDT) Creatine Kinase, Plasma 55 37 - 168 U/L 11/30/2024 10:21 AM EDT [facility] Blood Venous blood specimen / Unknown Venipuncture / Unknown 11/30/2024 2:09 AM EDT 11/30/2024 2:33 AM EDT us Noemí Leigh MD LAB BLOOD ORDERABLES Final Res ult Performing Organization Address City/[facility]/ZIP Co de Phone Number [facility] [address] [place] [address] * Streptococcus pneumoniae and Legionella Urinary Antigen (11/30/2024 2:09 AM EDT) Legionella pneumophila serogroup 1 Antigen Result (Urine) Negative Negative 11/30/2024 5:18 AM EDT [facility] Streptococcus pneumoniae Antigen Result (Urine) Negative Negative 11/30/2024 5:18 AM EDT [facility] Urine Urine specimen obtained by clean catch procedure / Unknown Non-blood Collection / Unknown 11/30/2024 2:09 AM EDT 11/30/2024 3:12 AM EDT Jay Nicolas APRN, [facility] LAB MICROBIOLOGY - GENER AL ORDERABLES Final Result Performing Organization Address City/[facility]/ZIP Co de Phone Number [facility] [address] [place] [address] * (ABNORMAL) Troponin T, High Sensitivity, 0 Hour Plasma, Reflex to 2 Hour (11/30/2024 2:09 AM EDT) Pathologist [facility] Troponin T, High Sensitivity, 0 Hour 41(H) <14 ng/L 11/30/2024 3:03 AM EDT [facility] Blood Venous blood specimen / Unknown Venipuncture / Unknown 11/30/2024 2:09 AM EDT 11/30/2024 2:33 AM EDT us Jay Nicolas APRN, DNP LAB BLOOD ORDERABLES Fin al Result Performing Organization Address City/[facility]/ZIP Co de Phone Number [facility] [address] [place] [address] * (ABNORMAL) D Dimer (11/30/2024 2:09 AM EDT) Pathologist [facility] D Dimer, Quantitative 8.98(H) <0.50 ug/mL FEU LAB COAGULATION METHOD 11/30/2024 3:05 AM EDT [facility] Blood Venous blood specimen / Unknown Venipuncture / Unknown 11/30/2024 2:09 AM EDT 11/30/2024 2:33 AM EDT Narrative [facility] - 11/30/2024 3:05 AM EDT Test performed by STAGO D-dimer assay. Values greater than 0.50 ug/mL FEU should be evaluated for risk stratification of patients with possible venous thromboembolism. In addition to expected elevations following injury or surgery, D-dimer levels increase in normal and increase steadily with normal aging. Values in healthy individuals often exceed the VTE exclusion cutoff value, and should be considered in the clinical context. us Jay Nicolas MATERIAL CONTROL MANAGER, DNP LAB BLOOD ORDERABLES Fin al Result [facility] [address] [place] [address] * (ABNORMAL) Venous Blood Gas (11/30/2024 2:09 AM EDT) pH, Venous 7.42 7.32 - 7.43 LAB HEMATOLOGY METHOD 11/30/2024 2:37 AM EDT [facility] pCO2, Venous 44 37 - 52 mmHg LAB HEMATOLOGY METHOD 11/30/2024 2:37 AM EDT [facility] pO2, Venous 66(H) 25 - 40 mmHg LAB HEMATOLOGY METHOD 11/30/2024 2:37 AM EDT [facility] SO2, Measured, Venous 94(H) 65 - 80 % LAB HEMATOLOGY METHOD 11/30/2024 2:37 AM EDT [facility] Base Excess, Venous 4.1(H) -2.0 - 3.0 mmol/L LAB HEMATOLOGY METHOD 11/30/2024 2:37 AM EDT [facility] Bicarbonate, Calculated, Venous 29(H) 22 - 26 mmol/L LAB HEMATOLOGY METHOD 11/30/2024 2:37 AM EDT [facility] Hematocrit, Whole Blood 22.6(L) 34.0 - 45.0 % LAB HEMATOLOGY METHOD 11/30/2024 2:37 AM EDT [facility] Sodium, Whole Blood 140 136 - 145 mmol/L LAB HEMATOLOGY METHOD 11/30/2024 2:37 AM EDT [facility] Potassium, Whole Blood 3.5(L) 3.6 - 4.9 mmol/L LAB HEMATOLOGY METHOD 11/30/2024 2:37 AM EDT [facility] Chloride, Whole Blood 101 97 - 107 mmol/L LAB HEMATOLOGY METHOD 11/30/2024 2:37 AM EDT [facility] Glucose, Whole Blood 156(H) 74 - 99 mg/dL LAB HEMATOLOGY METHOD 11/30/2024 2:37 AM EDT [facility] Lactate, Venous, Whole Blood 1.0 0.5 - 2.2 mmol/L LAB HEMATOLOGY METHOD 11/30/2024 2:37 AM EDT [facility] Ionized Calcium, Whole Blood 4.1(L) 4.6 - 5.1 mg/dL LAB HEMATOLOGY METHOD 11/30/2024 2:37 AM EDT [facility] Blood Venous blood specimen / Unknown Venipuncture / Unknown 11/30/2024 2:09 AM EDT 11/30/2024 2:34 AM EDT us Jay Nicolas MATERIAL CONTROL MANAGER, DNP LAB BLOOD ORDERABLES Fin al Result [facility] [address] [place] [address] * (ABNORMAL) Procalcitonin, Plasma (11/30/2024 2:09 AM EDT) Procalcitonin, Plasma 0.35(H) <0.09 ng/mL 11/30/2024 3:08 AM EDT [facility] Blood Venous blood specimen / Unknown Venipuncture / Unknown 11/30/2024 2:09 AM EDT 11/30/2024 2:33 AM EDT Narrative [facility] - 11/30/2024 3:08 AM EDT Procalcitonin concentrations in healthy individuals are [...] predict 28 day mortality risk. Please consult [email or web address]-fcp-[email or web address] for more information. Test performed at [facility]. us Jay Nicolas APRN, [facility] LAB BLOOD ORDERABLES Fin al Result Performing Organization Address [facility] de Phone Number [facility] [address] [place] [address] * (ABNORMAL) C-Reactive Protein, Plasma (Use only for Muscle/Bone/Joint Infections) (11/30/2024 2:09 AM EDT) [facility] CRP, Plasma 70.4(H) <=8.0 mg/L 11/30/2024 3:03 AM EDT [facility] Blood Venous blood specimen / Unknown Venipuncture / Unknown 11/30/2024 2:09 AM EDT 11/30/2024 2:33 AM EDT Narrative [facility] - 11/30/2024 3:03 AM EDT This CRP test is appropriate for assessment of infection, systemic inflammation and/or tissue injury. To assess cardiovascular disease risk order high sensitivity CRP (CRPH). us Jay Nicolas APRN, DNP LAB BLOOD ORDERABLES Fin al Result Performing Organization Address [facility] Phone Number [facility] [address] [place] [address] * Nasopharyngeal Respiratory Panel (11/30/2024 2:09 AM EDT) [facility] Nasopharyngeal Respiratory PCR Interpretation Not Detected for all analytes Not Detected for all analytes 11/30/2024 5:05 AM EDT [facility] Swab Nasopharyngeal structure / Unknown Non-blood Collection / Unknown 11/30/2024 2:09 AM EDT 11/30/2024 3:15 AM EDT Narrative [facility] - 11/30/2024 5:05 AM EDT This assay can detect Adenovirus, Coronavirus, [...] Respiratory PCR Panel is performed using the PowerPot ePlex instrument. This test is FDA approved for use with Nasopharyngeal swabs only. This test is used for clinical purposes. It should not be regarded as investigational or for research. The [facility] Clinical [facility]biology Laboratory is certified under the Clinical Laboratory Improvement Amendments of 1988 (CLIA-88) as qualified to perform high complexity clinical laboratory testing. Jay Nicolas APRN, DNP LAB MICROBIOLOGY - GENER AL ORDERABLES Final Result Performing Organization Address City/[facility]/[place] [address] * Blood Culture (Aerobic/Anaerobet Set) (11/30/2024 2:09 AM EDT) Culture No growth at day 5 12/05/2024 3:28 AM EDT [facility] Blood Venous blood specimen / Unknown Venipuncture / Unknown 11/30/2024 2:09 AM EDT 11/30/2024 3:17 AM EDT Jay Nicolas APRN, DNP LAB MICROBIOLOGY - GENER AL ORDERABLES Final Result Performing Organization Address City/[facility] Co de Phone Number [facility] [address] [place] [address] * Type and Screen (11/30/2024 2:09 AM EDT) ABO/Rh O Positive 11/30/2024 1:25 AM EDT [facility] Antibody Screen Negative 11/30/2024 1:25 AM EDT [facility] Specimen Expiration 12/03/2024 23:59 11/30/2024 1:25 AM EDT [facility] Blood Venous blood specimen / Unknown Venipuncture / Unknown 11/30/2024 2:09 AM EDT 11/30/2024 2:17 AM EDT us Jay Nicolas APRN, DNP LAB BLOOD BANK TEST ORDE RABLES Final Result Performing Organization Address City/[facility] Co de Phone Number BLOOD BANK [address] [place] [address], [place] * APTT (11/30/2024 2:09 AM EDT) aPTT 30 25 - 35 sec LAB COAGULATION METHOD 11/30/2024 3:05 AM EDT [facility] Blood Venous blood specimen / Unknown Venipuncture / Unknown 11/30/2024 2:09 AM EDT 11/30/2024 2:33 AM EDT us Jay Nicolas APRN, DNP LAB BLOOD ORDERABLES Fin al Result Performing Organization Address [facility] Co de Phone Number [facility] [address] [place] [address] * (ABNORMAL) PT/INR (11/30/2024 2:09 AM EDT) Prothrombin Time 15.2(H) 12.0 - 14.3 sec LAB COAGULATION METHOD 11/30/2024 3:05 AM EDT [facility] INR 1.2(H) 0.9 - 1.1 LAB COAGULATION METHOD 11/30/2024 3:05 AM EDT [facility] Blood Venous blood specimen / Unknown Venipuncture / Unknown 11/30/2024 2:09 AM EDT 11/30/2024 2:33 AM EDT Narrative [facility] - 11/30/2024 3:05 AM EDT OPTIMAL INR RANGES FOR PATIENT ON ORAL ANTICOAGULANT THERAPY Prevention of venous thromboembolism INR 2.0 to 3.0 In patients with heart disease: Atrial fibrillation INR 2.0 to 3.0 Valvular heart disease INR 2.0 to 3.0 Tissue heart valves INR 2.0 to 3.0 Mechanical prosthetic valves INR 2.5 to 3.5 Prevention of recurrent NM INR 2.5 to 3.5 us Jay iNcolas APRN, DNP LAB BLOOD ORDERABLES Fin al Result Performing Organization Address City/[facility] Co de Phone Number [facility] [address] [place] [address] * Phosphorus (11/30/2024 2:09 AM EDT) Phosphorus, Plasma 3.7 2.5 - 4.5 mg/dL 11/30/2024 3:03 AM EDT [facility] Blood Venous blood specimen / Unknown Venipuncture / Unknown 11/30/2024 2:09 AM EDT 11/30/2024 2:33 AM EDT us Jay Nicolas APRN, DNP LAB BLOOD ORDERABLES Fin al Result Performing Organization Address [facility]/ZIP Co de Phone Number [facility] [address] [place] [address] * Magnesium (11/30/2024 2:09 AM EDT) Magnesium, Plasma 2.2 1.9 - 2.4 mg/dL 11/30/2024 3:03 AM EDT [facility] Blood Venous blood specimen / Unknown Venipuncture / Unknown 11/30/2024 2:09 AM EDT 11/30/2024 2:33 AM EDT us Jay Nicolas APRN, DNP LAB BLOOD ORDERABLES Fin al Result Performing Organization Address City/[facility]/ZIP Co de Phone Number [facility] [address] [place] [address] * (ABNORMAL) Comprehensive metabolic panel (11/30/2024 2:09 AM EDT) Glucose, Plasma 155(H) 74 - 99 mg/dL 11/30/2024 3:03 AM EDT [facility] BUN, Plasma 17 8 - 23 mg/dL 11/30/2024 3:03 AM EDT [facility] Creatinine, Plasma 2.98(H) 0.60 - 1.10 mg/dL 11/30/2024 3:03 AM EDT [facility] BUN/Creatinine Ratio 6 11/30/2024 3:03 AM EDT [facility] Sodium, Plasma 141 136 - 145 mmol/L 11/30/2024 3:03 AM EDT [facility] Potassium, Plasma 3.7 3.6 - 4.9 mmol/L 11/30/2024 3:03 AM EDT [facility] Chloride, Plasma 101 97 - 107 mmol/L 11/30/2024 3:03 AM EDT [facility] CO2, Plasma 26 22 - 29 mmol/L 11/30/2024 3:03 AM EDT [facility] Anion Gap 14 6 - 16 mmol/L 11/30/2024 3:03 AM EDT [facility] Total Calcium, Plasma 7.6(L) 8.9 - 10.2 mg/dL 11/30/2024 3:03 AM EDT [facility] Total Protein 6.0(L) 6.3 - 7.9 g/dL 11/30/2024 3:03 AM EDT [facility] Albumin, Plasma 2.8(L) 3.5 - 5.2 g/dL 11/30/2024 3:03 AM EDT [facility] AST, Plasma 21 10 - 35 U/L 11/30/2024 3:03 AM EDT [facility] ALT, Plasma 14 10 - 35 U/L 11/30/2024 3:03 AM EDT [facility] Alkaline Phosphatase, Plasma 96 46 - 142 U/L 11/30/2024 3:03 AM EDT [facility] Total Bilirubin, Plasma 0.5 0.2 - 1.1 mg/dL 11/30/2024 3:03 AM EDT [facility] eGFRcr 17.0 mL/min/1.7 3m*2 11/30/2024 3:03 AM EDT [facility] Comment:Reported eGFRcr in m L/min/1.73m2 is based the CKD-EPI 2020 equation that does not use a race coefficient. Blood Venous blood specimen / Unknown Venipuncture / Unknown 11/30/2024 2:09 AM EDT 11/30/2024 2:33 AM EDT us Dirk A Religious MATERIAL CONTROL MANAGER, DNP LAB BLOOD ORDERABLES Fin al Result [facility] [address] [place] [address] * (ABNORMAL) CBC with differential (hemogram with differential) (11/30/2024 2:09 AM EDT) WBC Count 9.55 3.70 - 10.30 10*3/uL LAB HEMATOLOGY METHOD 11/30/2024 2:40 AM EDT [facility] RBC Count 2.41(L) 3.90 - 5.20 10*6/uL LAB HEMATOLOGY METHOD 11/30/2024 2:40 AM EDT [facility] HGB 7.0(L) 11.2 - 15.7 g/dL LAB HEMATOLOGY METHOD 11/30/2024 2:40 AM EDT [facility] HCT 22.9(L) 34.0 - 45.0 % LAB HEMATOLOGY METHOD 11/30/2024 2:40 AM EDT [facility] Platelet Count 190 155 - 369 10*3/uL LAB HEMATOLOGY METHOD 11/30/2024 2:40 AM EDT [facility] MCV 95 79 - 98 fL LAB HEMATOLOGY METHOD 11/30/2024 2:40 AM EDT [facility] MCH 29.0 26.0 - 32.0 pg LAB HEMATOLOGY METHOD 11/30/2024 2:40 AM EDT [facility] MCHC 30.6(L) 30.7 - 35.5 g/dL LAB HEMATOLOGY METHOD 11/30/2024 2:40 AM EDT [facility] RDW 19.6(H) 11.5 - 14.5 % LAB HEMATOLOGY METHOD 11/30/2024 2:40 AM EDT [facility] MPV 10.1 8.8 - 12.5 fL LAB HEMATOLOGY METHOD 11/30/2024 2:40 AM EDT [facility] nRBC 0.0 <=0.0 per 100 WBCs LAB HEMATOLOGY METHOD 11/30/2024 2:40 AM EDT [facility] Differential Type Automated LAB HEMATOLOGY METHOD 11/30/2024 2:40 AM EDT [facility] Neutrophils % 81 % LAB HEMATOLOGY METHOD 11/30/2024 2:40 AM EDT [facility] Lymphocytes % 8 % LAB HEMATOLOGY METHOD 11/30/2024 2:40 AM EDT [facility] Monocytes % 8 % LAB HEMATOLOGY METHOD 11/30/2024 2:40 AM EDT [facility] Eosinophils % 2 % LAB HEMATOLOGY METHOD 11/30/2024 2:40 AM EDT [facility] Basophils % 0 % LAB HEMATOLOGY METHOD 11/30/2024 2:40 AM EDT [facility] Immature Granulocytes % 1 % LAB HEMATOLOGY METHOD 11/30/2024 2:40 AM EDT [facility] Neutrophils Absolute 7.75(H) 1.60 - 6.10 10*3/uL LAB HEMATOLOGY METHOD 11/30/2024 2:40 AM EDT [facility] Lymphocytes Absolute 0.79(L) 1.20 - 3.90 10*3/uL LAB HEMATOLOGY METHOD 11/30/2024 2:40 AM EDT [facility] Monocytes Absolute 0.72 0.30 - 0.90 10*3/uL LAB HEMATOLOGY METHOD 11/30/2024 2:40 AM EDT [facility] Eosinophils Absolute 0.15 0.00 - 0.50 10*3/uL LAB HEMATOLOGY METHOD 11/30/2024 2:40 AM EDT [facility] Basophils Absolute 0.04 0.00 - 0.10 10*3/uL LAB HEMATOLOGY METHOD 11/30/2024 2:40 AM EDT [facility] Immature Granulocytes Absolute 0.10(H) 0.00 - 0.06 10*3/uL LAB HEMATOLOGY METHOD 11/30/2024 2:40 AM EDT [facility] Blood Venous blood specimen / Unknown Venipuncture / Unknown 11/30/2024 2:09 AM EDT 11/30/2024 2:33 AM EDT Narrative [facility] - 11/30/2024 2:40 AM EDT Therapeutic decision making should be based on absolute values, rather than percentages. us Jay Nicolas MATERIAL CONTROL MANAGER, DNP LAB BLOOD ORDERABLES Fin al Result [facility] [address] [place] [address] * SARS CoV-2/COVID-19 by PCR (11/30/2024 2:09 AM EDT) Pathologist [facility] SARS CoV-2/COVID-1 9 RNA PCR Result Not Detected Not Detected 11/30/2024 4:02 AM EDT [facility] Swab Nasopharyngeal structure / Unknown Non-blood Collection / Unknown 11/30/2024 2:09 AM EDT 11/30/2024 3:15 AM EDT Narrative [facility] - 11/30/2024 4:02 AM EDT This test is FDA approved [...] clinical signs and symptoms consistent with COVID-19. Jay Nicolas APRN, [facility] LAB MICROBIOLOGY - GENER AL ORDERABLES Final Result [facility] [address] [place] [address] * Multi Drug Resistance Test (11/30/2024 2:09 AM EDT) [facility] Culture No growth at day 1 12/01/2024 6:25 AM EDT [facility] Swab (Nares and Carole Rectal) Non-blood Collection / Unknown 11/30/2024 2:09 AM EDT 11/30/2024 3:13 AM EDT Narrative [facility] - 12/01/2024 6:25 AM EDT This test was developed and its performance characteristics determined by the [facility] Microbiology [facility]. Although the media is FDA-approved, it is not FDA-approved for all specimen types submitted. The FDA has determined that such clearance or approval is not necessary. This test is used for surveillance purposes. It should not be regarded as investigational or for research. The [facility] Clinical [facility]biology Laboratory is certified under the Clinical Laboratory Improvement Amendments of 1988 (CLIA-88) as qualified to perform high complexity clinical laboratory testing. us Jay Nicolas APRN, DNP LAB MICROBIOLOGY - GENER AL ORDERABLES Final Result Performing Organization Address [facility] de Phone Number [facility] [address] [place] [address] * ECG Adult (11/30/2024 1:36 AM EDT) EKG DIAGNOSIS CLASS Borderline Abnormal MUSE ECG Ventricular Rate 103 BPM MUSE ECG Atrial Rate 103 BPM MUSE ECG NH Interval 132 ms MUSE ECG QRSD Interval 86 ms MUSE ECG QT Interval 364 ms MUSE ECG QTC Interval 477 ms MUSE ECG P [place] 62 degrees MUSE ECG R [place] 2 degrees MUSE ECG T Wave [place] 34 degrees MUSE ECG Diagnosis Sinus tachycardia MUSE ECG Diagnosis Possible Left atrial enlargement MUSE ECG Diagnosis Incomplete right bundle branch block MUSE ECG Diagnosis Borderline ECG MUSE ECG Diagnosis MUSE ECG Diagnosis Confirmed by Jeff Jackson ([id number]) on 11/30/2024 7:16:08 AM MUSE ECG 11/30/2024 1:36 AM EDT 11/30/2024 7:16 AM EDT Jay Nicolas APRN, DNP ECG ORDERABLES Final Re sult Performing Organization Address [facility] de Phone Number MUSE ECG * Urinalysis with reflex microscopic (Culture NOT Included) (11/29/2024 11:17 PM EDT) Color, Urine Yellow LAB URINALYSIS - AUTOMATED METHOD 11/29/2024 11:33 PM EDT [facility] Clarity, Urine Clear LAB URINALYSIS - AUTOMATED METHOD 11/29/2024 11:33 PM EDT [facility] Spec [place], Urine 1.007 1.005 - 1.030 LAB URINALYSIS - AUTOMATED METHOD 11/29/2024 11:33 PM EDT [facility] pH, Urine 6.5 5.0 - 8.0 LAB URINALYSIS - AUTOMATED METHOD 11/29/2024 11:33 PM EDT [facility] Protein, Urine Negative Negative mg/dL LAB URINALYSIS - AUTOMATED METHOD 11/29/2024 11:33 PM EDT [facility] Glucose, Urine Negative Negative mg/dL LAB URINALYSIS - AUTOMATED METHOD 11/29/2024 11:33 PM EDT [facility] Ketones, Urine Negative Negative mg/dL LAB URINALYSIS - AUTOMATED METHOD 11/29/2024 11:33 PM EDT [facility] Blood, Urine Negative Negative LAB URINALYSIS - AUTOMATED METHOD 11/29/2024 11:33 PM EDT [facility] Bilirubin, Urine Negative Negative LAB URINALYSIS - AUTOMATED METHOD 11/29/2024 11:33 PM EDT [facility] Urobilinogen, Urine 0.2 0.2 to 1.0 mg/dL LAB URINALYSIS - AUTOMATED METHOD 11/29/2024 11:33 PM EDT [facility] Leukocytes, Urine Negative Negative LAB URINALYSIS - AUTOMATED METHOD 11/29/2024 11:33 PM EDT [facility] Nitrite, Urine Negative Negative LAB URINALYSIS - AUTOMATED METHOD 11/29/2024 11:33 PM EDT [facility] Urine Urine specimen obtained by clean catch procedure / Unknown Non-blood Collection / Unknown 11/29/2024 11:17 PM EDT 11/29/2024 11:30 PM EDT us Nilson Jimenez MD LAB URINE ORDERABLES Final Resul t [facility] [address] [place] [address] * Urea Nitrogen, Random Urine (11/29/2024 11:17 PM EDT) Urea Nitrogen, Urine 87 mg/dL 11/30/2024 1:00 AM EDT [facility] Urine Urine specimen obtained by clean catch procedure / Unknown Non-blood Collection / Unknown 11/29/2024 11:17 PM EDT 11/29/2024 11:39 PM EDT us Nilson Jimenez MD LAB URINE ORDERABLES Final Resul t [facility] [address] [place] [address] * Creatinine, Random, Urine (11/29/2024 11:17 PM EDT) Creatinine, Urine 24 mg/dL 11/30/2024 12:58 AM EDT [facility] Urine Urine specimen obtained by clean catch procedure / Unknown Non-blood Collection / Unknown 11/29/2024 11:17 PM EDT 11/29/2024 11:39 PM EDT us Nilson Jimenez MD LAB URINE ORDERABLES Final Resul t Performing Organization Address [facility] Co de Phone Number [facility] [address] [place] [address] * Sodium, Random, Urine (11/29/2024 11:17 PM EDT) Sodium, Urine 85 mmol/L 11/30/2024 12:58 AM EDT [facility] Urine Urine specimen obtained by clean catch procedure / Unknown Non-blood Collection / Unknown 11/29/2024 11:17 PM EDT 11/29/2024 11:39 PM EDT us Nilson Jimenez MD LAB URINE ORDERABLES Final Resul t Performing Organization Address [facility] Co de Phone Number [facility] [address] [place] [address] * (ABNORMAL) Comprehensive Urine Drug Screening, Qualitative Assay, >= 27 Drug Classes (59:34 PM EDT) Acetaminophen Negative Negative 12/01/2024 1:33 PM EDT [facility] Alprazolam Negative Negative 12/01/2024 1:33 PM EDT [facility] Amantadine Negative Negative 12/01/2024 1:33 PM EDT [facility] Amitriptyline Negative Negative 12/01/2024 1:33 PM EDT [facility] Amphetamine Negative Negative 12/01/2024 1:33 PM EDT [facility] Atenolol Negative Negative 12/01/2024 1:33 PM EDT [facility] Benzoylecgonine Negative Negative 1:33 PM EDT [facility] Bisoprolol Negative Negative 12/01/2024 1:33 PM EDT [facility] Bupropion Negative Negative 12/01/2024 1:33 PM EDT [facility] Butalbital Negative Negative 12/01/2024 1:33 PM EDT [facility] Carbamazepine Negative Negative 12/01/2024 1:33 PM EDT [facility] Carisoprodol Negative Negative 12/01/2024 1:33 PM EDT [facility] Chlorpheniramine Negative Negative 12/02/19 1:33 PM EDT [facility] Citalopram Negative Negative 12/01/2024 1:33 PM EDT [facility] Clindamycin Negative Negative 12/01/2024 1:33 PM EDT [facility] Clonidine Negative Negative 12/01/2024 1:33 PM EDT [facility] Clopidogrel / Ticlopidine Negative Negative 12/01/2024 1:33 PM EDT [facility] Cocaethylene Negative Negative 12/01/2024 1:33 PM EDT [facility] Cocaine Negative Negative 12/01/2024 1:33 PM EDT [facility] Codeine Negative Negative 12/01/2024 1:33 PM EDT [facility] Cyclobenzaprine Negative Negative 1:33 PM EDT [facility] Desvenlafaxine Negative Negative 12/01/2024 1:33 PM EDT [facility] Dextromethorphan Negative Negative 12/02/19 1:33 PM EDT [facility] Diazepam Negative Negative 12/01/2024 1:33 PM EDT [facility] Diltiazem Negative Negative 12/01/2024 1:33 PM EDT [facility] Diphenhydramine Negative Negative 1:33 PM EDT [facility] Doxepine Negative Negative 12/01/2024 1:33 PM EDT [facility] Doxylamine Negative Negative 12/01/2024 1:33 PM EDT [facility] EDDP-Methadone metabolite Negative Negative 12/01/2024 1:33 PM EDT [facility] Fentanyl Negative Negative 12/01/2024 1:33 PM EDT [facility] Fluconazole Positive(A) Negative 12/01/2024 1:33 PM EDT [facility] Fluoxetine Negative Negative 12/01/2024 1:33 PM EDT [facility] Guaifenesin Negative Negative 12/01/2024 1:33 PM EDT [facility] Haloperidol Negative Negative 12/01/2024 1:33 PM EDT [facility] Heroin/6-PINKY Negative Negative 12/01/2024 1:33 PM EDT [facility] Hydrocodone Negative Negative 12/01/2024 1:33 PM EDT [facility] Hydroxyzine / Cetirizine metabolite Negative Negative 12/01/2024 1:33 PM EDT [facility] Ibuprofen Negative Negative 12/01/2024 1:33 PM EDT [facility] Imipramine Negative Negative 12/01/2024 1:33 PM EDT [facility] Ketamine Negative Negative 12/01/2024 1:33 PM EDT [facility] Labetolol Negative Negative 12/01/2024 1:33 PM EDT [facility] Lamotrigine Negative Negative 12/01/2024 1:33 PM EDT [facility] Levetiracetam Negative Negative 12/01/2024 1:33 PM EDT [facility] Lidocaine Negative Negative 12/01/2024 1:33 PM EDT [facility] MDA Negative Negative 12/01/2024 1:33 PM EDT [facility] MDMA Negative Negative 12/01/2024 1:33 PM EDT [facility] Memantine Negative Negative 12/01/2024 1:33 PM EDT [facility] Meperidine Negative Negative 12/01/2024 1:33 PM EDT [facility] Meprobamate Negative Negative 12/01/2024 1:33 PM EDT [facility] Metaxalone Negative Negative 12/01/2024 1:33 PM EDT [facility] Methamphetamine Negative Negative 1:33 PM EDT [facility] Methocarbamol Negative Negative 12/01/2024 1:33 PM EDT [facility] Methylecgonine Negative Negative 12/01/2024 1:33 PM EDT [facility] Metoclopramide Negative Negative 12/01/2024 1:33 PM EDT [facility] Metoprolol Negative Negative 12/01/2024 1:33 PM EDT [facility] Metronidazole Negative Negative 12/01/2024 1:33 PM EDT [facility] Midazolam Negative Negative 12/01/2024 1:33 PM EDT [facility] Midazolam Metabolite Negative Negative 12/01/2024 1:33 PM EDT [facility] Mirtazapine Negative Negative 12/01/2024 1:33 PM EDT [facility] Misc Test Result Positive(A) Negative 025 1:33 PM EDT [facility] Comment:Gabapentin: positive Naproxen Negative Negative 12/01/2024 1:33 PM EDT [facility] Nefazodone Negative Negative 12/01/2024 1:33 PM EDT [facility] Norfentanyl Negative Negative 12/01/2024 1:33 PM EDT [facility] Nortriptyline Negative Negative 12/01/2024 1:33 PM EDT [facility] Ordanstron Negative Negative 12/01/2024 1:33 PM EDT [facility] Oxcarbazepine Negative Negative 12/01/2024 1:33 PM EDT [facility] Oxycodone Negative Negative 12/01/2024 1:33 PM EDT [facility] Paroxethine Negative Negative 12/01/2024 1:33 PM EDT [facility] Phenobarbital Negative Negative 12/01/2024 1:33 PM EDT [facility] Phentermine Negative Negative 12/01/2024 1:33 PM EDT [facility] Phenytoin Negative Negative 12/01/2024 1:33 PM EDT [facility] Primidone Negative Negative 12/01/2024 1:33 PM EDT [facility] Promethazine Negative Negative 12/01/2024 1:33 PM EDT [facility] Propofol Negative Negative 12/01/2024 1:33 PM EDT [facility] Propranolol Negative Negative 12/01/2024 1:33 PM EDT [facility] Quetiapine Negative Negative 12/01/2024 1:33 PM EDT [facility] Quinine Negative Negative 12/01/2024 1:33 PM EDT [facility] Rantidine Negative Negative 12/01/2024 1:33 PM EDT [facility] Sertraline Negative Negative 12/01/2024 1:33 PM EDT [facility] Spironolactone Negative Negative 12/01/2024 1:33 PM EDT [facility] Tizanidine Negative Negative 12/01/2024 1:33 PM EDT [facility] Topiramate Negative Negative 12/01/2024 1:33 PM EDT [facility] Tramadol Negative Negative 12/01/2024 1:33 PM EDT [facility] Trazadone/ Trazadone metabolite Negative Negative 12/01/2024 1:33 PM EDT [facility] Trimethoprim Positive(A) Negative 12/01/2024 1:33 PM EDT [facility] Valproic Acid Negative Negative 12/01/2024 1:33 PM EDT [facility] Venlafaxine Negative Negative 12/01/2024 1:33 PM EDT [facility] Verapamil Negative Negative 12/01/2024 1:33 PM EDT [facility] Zolpidem Negative Negative 12/01/2024 1:33 PM EDT [facility] Xylazine Negative Negative 12/01/2024 1:33 PM EDT [facility] Urine Urine specimen obtained by clean catch procedure / Unknown Non-blood Collection / Unknown 11/29/2024 9:34 PM EDT 11/29/2024 9:53 PM EDT us Nisha Choudhury LAB URINE ORDERABLES Final Resul t [facility] [address] [place] [address] * (ABNORMAL) Blood gas panel, venous (11/29/2024 8:30 PM EDT) pH, Venous 7.40 7.32 - 7.43 LAB HEMATOLOGY METHOD 11/29/2024 8:42 PM EDT [facility] pCO2, Venous 46 37 - 52 mmHg LAB HEMATOLOGY METHOD 11/29/2024 8:42 PM EDT [facility] pO2, Venous 33 25 - 40 mmHg LAB HEMATOLOGY METHOD 11/29/2024 8:42 PM EDT [facility] SO2, Measured, Venous 58(L) 65 - 80 % LAB HEMATOLOGY METHOD 11/29/2024 8:42 PM EDT [facility] Base Excess, Venous 3.5(H) -2.0 - 3.0 mmol/L LAB HEMATOLOGY METHOD 11/29/2024 8:42 PM EDT [facility] Bicarbonate, Calculated, Venous 29(H) 22 - 26 mmol/L LAB HEMATOLOGY METHOD 11/29/2024 8:42 PM EDT [facility] Hematocrit, Whole Blood 30.0(L) 34.0 - 45.0 % LAB HEMATOLOGY METHOD 11/29/2024 8:42 PM EDT [facility] Sodium, Whole Blood 144 136 - 145 mmol/L LAB HEMATOLOGY METHOD 11/29/2024 8:42 PM EDT [facility] Potassium, Whole Blood 3.7 3.6 - 4.9 mmol/L LAB HEMATOLOGY METHOD 11/29/2024 8:42 PM EDT [facility] Chloride, Whole Blood 102 97 - 107 mmol/L LAB HEMATOLOGY METHOD 11/29/2024 8:42 PM EDT [facility] Glucose, Whole Blood 141(H) 74 - 99 mg/dL LAB HEMATOLOGY METHOD 11/29/2024 8:42 PM EDT [facility] Lactate, Venous, Whole Blood 2.3(H) 0.5 - 2.2 mmol/L LAB HEMATOLOGY METHOD 11/29/2024 8:42 PM EDT [facility] Ionized Calcium, Whole Blood 4.0(L) 4.6 - 5.1 mg/dL LAB HEMATOLOGY METHOD 11/29/2024 8:42 PM EDT [facility] Blood Venous blood specimen / Unknown Venipuncture / Unknown 11/29/2024 8:30 PM EDT 11/29/2024 8:41 PM EDT us Nisha Choudhury LAB BLOOD ORDERABLES Final Resul t Performing Organization Address City/[facility]/ZIP Co de Phone Number [facility] [address] [place] [address] * Urine Meek Panel (11/29/2024 7:58 PM EDT) Extra Reflex urine culture not indicated 11/30/2024 5:01 AM EDT [facility] Comment: Previously prelim verified as Specimen evaluation in progress on 11/29/2024 at 2201 EDT. Previously prelim verified as Specimen evaluation in progress on 11/29/2024 at 2301 EDT. Previously prelim verified as Specimen evaluation in progress on 11/30/2024 at 0002 EDT. Previously prelim verified as Specimen evaluation in progress on 11/30/2024 at 0104 EDT. Previously prelim verified as Specimen evaluation in progress on 11/30/2024 at 0201 EDT. Previously prelim verified as Specimen evaluation in progress on 11/30/2024 at 0302 EDT. Previously prelim verified as Specimen evaluation in progress on 11/30/2024 at 0402 EDT. Urine Urine specimen obtained by clean catch procedure / Unknown Non-blood Collection / Unknown 11/29/2024 7:58 PM EDT 11/29/2024 8:18 PM EDT us Nisha Choudhury LAB URINE ORDERABLES Final Resul t Performing Organization Address City/[facility]/ZIP Co de Phone Number [facility] [address] [place] [address] * Urinalysis with reflex microscopic (Culture NOT Included) (11/29/2024 7:58 PM EDT) Color, Urine Yellow LAB URINALYSIS - AUTOMATED METHOD 11/29/2024 8:26 PM EDT [facility] Clarity, Urine Clear LAB URINALYSIS - AUTOMATED METHOD 11/29/2024 8:26 PM EDT [facility] Spec [place], Urine 1.007 1.005 - 1.030 LAB URINALYSIS - AUTOMATED METHOD 11/29/2024 8:26 PM EDT [facility] pH, Urine 6.5 5.0 - 8.0 LAB URINALYSIS - AUTOMATED METHOD 11/29/2024 8:26 PM EDT [facility] Protein, Urine Negative Negative mg/dL LAB URINALYSIS - AUTOMATED METHOD 11/29/2024 8:26 PM EDT [facility] Glucose, Urine Negative Negative mg/dL LAB URINALYSIS - AUTOMATED METHOD 11/29/2024 8:26 PM EDT [facility] Ketones, Urine Negative Negative mg/dL LAB URINALYSIS - AUTOMATED METHOD 11/29/2024 8:26 PM EDT [facility] Blood, Urine Negative Negative LAB URINALYSIS - AUTOMATED METHOD 11/29/2024 8:26 PM EDT [facility] Bilirubin, Urine Negative Negative LAB URINALYSIS - AUTOMATED METHOD 11/29/2024 8:26 PM EDT [facility] Urobilinogen, Urine 0.2 0.2 to 1.0 mg/dL LAB URINALYSIS - AUTOMATED METHOD 11/29/2024 8:26 PM EDT [facility] Leukocytes, Urine Negative Negative LAB URINALYSIS - AUTOMATED METHOD 11/29/2024 8:26 PM EDT [facility] Nitrite, Urine Negative Negative LAB URINALYSIS - AUTOMATED METHOD 11/29/2024 8:26 PM EDT [facility] Urine Urine specimen obtained by clean catch procedure / Unknown Non-blood Collection / Unknown 11/29/2024 7:58 PM EDT 11/29/2024 8:18 PM EDT us Nisha Choudhury LAB URINE ORDERABLES Final Resul t [facility] [address] [place] [address] * CT Head wo IV Contrast (11/29/2024 7:42 PM EDT) Anatomical Region Laterality Modality Head Computed Tomogra phy Impressions 11/29/2024 8:45 PM EDT Similar appearance of small amount of subdural blood beneath left parietal craniotomy flap just left of the vertex. Similar appearance of adjacent left parafalcine subdural hematoma. No new findings. CRITICAL RESULT: No. COMMUNICATION: Per this written report. Drafted by Abhilash Castorena MD on 11/29/2024 8:39 PM Final report signed by Abhilash Castorena MD on 11/29/2024 8:45 PM Narrative 11/29/2024 8:45 PM EDT CLINICAL INDICATION: first time seizure, history of mets, cancer pt on chemo TECHNIQUE: Routine contiguous axial CT images of the head were obtained without contrast administration. Total DLP (Dose-Length Product): 872.23 mGy.cm. Please note: The reported value represents the total of one or more individual components during the CT acquisition on this date and at this time, and as such, the same value may appear in more than one CT report depending on the interpreting/reporting physicians. COMPARISON: Head CT 11/15/2024 FINDINGS: Similar appearance of small amount of subdural blood beneath left parietal craniotomy flap just left of the vertex. Similar appearance of adjacent left parafalcine subdural hematoma. The CSF spaces appear clear. There is no midline shift, or attenuation of the basilar cisterns. Stable ventricular size, and configuration. No evidence of acute large territory infarct. Similar appearance of left parietal craniotomy flap. The remainder of the calvarium and skull base without acute findings. The mastoids, middle ear cavities are aerated. Small amount of mucosal thickening, and small amount of mucus within the left maxillary sinus, mucosal thickening within the sphenoidal sinuses. Small amount of deep subcutaneous fluid overlying the craniotomy is unchanged. Procedure Note Abhilash Castorena MD - 11/29/2024 CLINICAL INDICATION: first time seizure, history of mets, cancer pt on chemo TECHNIQUE: Routine contiguous axial CT images of the head were obtained withoutcontrast administration. Total DLP (Dose-Length Product): 872.23 mGy.cm. Please note: The reportedvalue represents the total of one or more individual components during theCT acquisition on this date and at this time, and as such, the same valuemay appear in more than one CT report depending on theinterpreting/reporting physicians. COMPARISON: Head CT 11/15/2024 FINDINGS: Similar appearance of small amount of subdural blood beneath left parietalcraniotomy flap just left of the vertex. Similar appearance of adjacentleft parafalcine subdural hematoma. The CSF spaces appear clear. There is no midline shift, or attenuation of the basilar cisterns. Stable ventricular size, and configuration. No evidence of acute large territory infarct. Similar appearance of left parietal craniotomy flap. The remainder of thecalvarium and skull base without acute findings. The mastoids, middle ear cavities are aerated. Small amount of mucosalthickening, and small amount of mucus within the left maxillary sinus,mucosal thickening within the sphenoidal sinuses. Small amount of deep subcutaneous fluid overlying the craniotomy isunchanged. IMPRESSION: Similar appearance of small amount of subdural blood beneath left parietalcraniotomy flap just left of the vertex. Similar appearance of adjacentleft parafalcine subdural hematoma. No new findings. CRITICAL RESULT: No. COMMUNICATION: Per this written report. Drafted by Abhilash Castorena MD on 11/29/2024 8:39 PM Final report signed by Abhilash Castorena MD on 11/29/2024 8:45 PM us Nisha Choudhury IMG CT PROCEDURES Final Result * (ABNORMAL) BNP (11/29/2024 7:35 PM EDT) N-Terminal, PROBNP, Plasma 1,813(H) 0 - 899 pg/mL 11/29/2024 8:38 PM EDT [facility] Blood Venous blood specimen / Unknown Venipuncture / Unknown 11/29/2024 7:35 PM EDT 11/29/2024 8:02 PM EDT us Nisha Choudhury LAB BLOOD ORDERABLES Final Resul t [facility] [address] [place] [address] * (ABNORMAL) BMP (11/29/2024 7:35 PM EDT) Glucose, Plasma 145(H) 74 - 99 mg/dL 11/29/2024 8:02 PM EDT [facility] BUN, Plasma 17 8 - 23 mg/dL 11/29/2024 8:02 PM EDT [facility] Creatinine, Plasma 2.87(H) 0.60 - 1.10 mg/dL 11/29/2024 8:02 PM EDT [facility] BUN/Creatinine Ratio 6 11/29/2024 8:02 PM EDT [facility] Sodium, Plasma 141 136 - 145 mmol/L 11/29/2024 8:02 PM EDT [facility] Potassium, Plasma 3.8 3.6 - 4.9 mmol/L 11/29/2024 8:02 PM EDT [facility] Chloride, Plasma 103 97 - 107 mmol/L 11/29/2024 8:02 PM EDT [facility] CO2, Plasma 23 22 - 29 mmol/L 11/29/2024 8:02 PM EDT [facility] Anion Gap 15 6 - 16 mmol/L 11/29/2024 8:02 PM EDT [facility] Total Calcium, Plasma 7.9(L) 8.9 - 10.2 mg/dL 11/29/2024 8:02 PM EDT [facility] eGFRcr 17.8 mL/min/1.7 3m*2 11/29/2024 8:02 PM EDT [facility] Comment:Reported eGFRcr in m L/min/1.73m2 is based the CKD-EPI 2020 equation that does not use a race coefficient. Blood Venous blood specimen / Unknown Venipuncture / Unknown 11/29/2024 7:35 PM EDT 11/29/2024 8:02 PM EDT us Nisha Choudhury LAB BLOOD ORDERABLES Final Resul t [facility] [address] [place] [address] * Phosphorus (11/29/2024 7:35 PM EDT) Phosphorus, Plasma 3.5 2.5 - 4.5 mg/dL 11/29/2024 8:02 PM EDT [facility] Blood Venous blood specimen / Unknown Venipuncture / Unknown 11/29/2024 7:35 PM EDT 11/29/2024 8:02 PM EDT us Nisha Choudhury LAB BLOOD ORDERABLES Final Resul t [facility] [address] [place] [address] * (ABNORMAL) Magnesium (11/29/2024 7:35 PM EDT) Magnesium, Plasma 1.1(L) 1.9 - 2.4 mg/dL 11/29/2024 8:02 PM EDT [facility] Blood Venous blood specimen / Unknown Venipuncture / Unknown 11/29/2024 7:35 PM EDT 11/29/2024 8:02 PM EDT us Nisha Choudhury LAB BLOOD ORDERABLES Final Resul t Performing Organization Address [facility]/ZIP Co de Phone Number [facility] [address] [place] [address] * XR Chest 1 View (11/29/2024 7:19 PM EDT) Anatomical Region Laterality Modality Chest Digital Radiogra phy Impressions 11/29/2024 8:51 PM EDT Persistent airspace disease within the right upper lung with left basilar atelectasis and possible trace left pleural effusion. Atelectasis versus infection in the right lower lung zone laterally CRITICAL RESULT: No. COMMUNICATION: Per this written report. Preliminary report signed by Tim Ozuna DO on 11/29/2024 7:52 PM By electronically signing this report, I, the attending physician, attest that I have personally reviewed the images/data for the above examination(s) and agree with the final edited report. Drafted by Tim Ozuna DO on 11/29/2024 7:51 PM Final report signed by Mathew Mathew MD on 11/29/2024 8:51 PM Narrative 11/29/2024 8:51 PM EDT CLINICAL INDICATION: hypoxia, tachypnea TECHNIQUE: XR CHEST 1 VIEW COMPARISON: CT PE 10/25/2024 FINDINGS: Airspace opacity within the right upper lung. Wedge-shaped focus of consolidation in the peripheral left lung consistent with atelectasis. Atelectasis or consolidation in the right lower lobe at the CP angle. No acute consolidation, pleural effusion or pneumothorax. Stable cardiac silhouette and mediastinal contours. No acute displaced fracture within the chest. Procedure Note Mathew Mathew MD - 11/29/2024 CLINICAL INDICATION: hypoxia, tachypnea TECHNIQUE: XR CHEST 1 VIEW COMPARISON: CT PE 10/25/2024 FINDINGS: Airspace opacity within the right upper lung. Wedge-shaped focus ofconsolidation in the peripheral left lung consistent with atelectasis.Atelectasis or consolidation in the right lower lobe at the CP angle. Noacute consolidation, pleural effusion or pneumothorax. Stable cardiacsilhouette and mediastinal contours. No acute displaced fracture withinthe chest. IMPRESSION: Persistent airspace disease within the right upper lung with left basilaratelectasis and possible trace left pleural effusion. Atelectasis versusinfection in the right lower lung zone laterally CRITICAL RESULT: No. COMMUNICATION: Per this written report. Preliminary report signed by Tim Ozuna DO on 11/29/2024 7:52 PM By electronically signing this report, I, the attending physician, [email or web address] I have personally reviewed the images/data for the aboveexamination(s) and agree with the final edited report. 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 Mixed hyperlipidemia Morbid obesity with BMI of 40.0-44.9, adult (CMS/HCC) Neuropathy Mononeuritis of unspecified site Diabetes mellitus (CMS/HCC) Type II or unspecified type diabetes mellitus without mention of complication, not stated as uncontrolled Hypomagnesemia Disorders of magnesium metabolism COPD (chronic obstructive pulmonary disease) (CMS/HCC) Chronic airway obstruction, not elsewhere classified Heart failure Unspecified heart failure JORGE (acute kidney injury) ([facility]) documented in this encounter Admitting Diagnoses Diagnosis Seizures ([facility]) Other convulsions Seizure ([facility]) Other convulsions documented in this encounter Administered Medications Inactive Administered Medications - up to 3 most recent administrations Medication Order MAR Action Action Date Dose Rate Site acetaminophen (Tylenol) tablet 1,000 mg 1,000 mg, Oral, Once, 1 dose, On Thu11/29/24 at 2150, STAT Given 11/29/2024 10:33 PM EDT 1,000 mg acetaminophen (Tylenol) tablet 650 mg 650 mg, Oral, Every 6 hours PRN, Starting on Thu11/30/24 at 0127, Until 12/10/24 at 2002, Routine, mild pain, moderate pain, headaches, fever, fever > 100.4 Given 12/07/2024 4:26 PM EDT 650 mg Given 12/06/2024 8:40 PM EDT 650 mg Given 12/04/2024 9:43 PM EDT 650 mg ampicillin (Omnipen) 2 g in sodium chloride 0.9% 100 mL IVPB (vial adapter required) 2 g, Intravenous, Every 6 hours, 28 doses, First dose on Thu12/04/24 at 1200, Last dose on Thu12/11/24 at 1000, Routine New Bag 12/09/2024 9:01 AM EDT 2 g 220 mL/hr New Bag 12/09/2024 3:39 AM EDT 2 g 220 mL/hr New Bag 12/08/2024 9:07 PM EDT 2 g 220 mL/hr calcium carbonate (Tums) chewable tablet 500 mg 500 mg, Oral, 4 times daily PRN, Starting on Thu11/30/24 at 0117, Until 12/10/24 at 2002, Routine, indigestion, heartburn Given 12/05/2024 6:29 PM EDT 500 mg calcium-vitamin D 500-200 MG-UNIT per tablet 1 tablet 1 tablet, Oral, Daily, First dose on Thu11/30/24 at 0900, Until Discontinued Given 12/10/2024 8:44 AM EDT 1 tablet Given 12/09/2024 9:03 AM EDT 1 tablet Given 12/08/2024 9:08 AM EDT 1 tablet cefepime (Maxipime) 2 g in sodium chloride 0.9% 100 mL IVPB (vial adapter required) 2 g, Intravenous, Every 12 hours, First dose on 12/05/24 at 1545, Until Discontinued, Routine New Bag 12/09/2024 4:14 AM EDT 2 g 36. 7 mL/hr New Bag 12/08/2024 4:10 PM EDT 2 g 36.7 mL/hr New Bag 12/08/2024 12:51 AM EDT 2 g 36.7 mL/hr cefTRIAXone (Rocephin) 2 g in sodium chloride 0.9% 100 mL IVPB (vial adapter required) 2 g, Intravenous, Every 12 hours, 14 doses, First dose on Thu12/03/24 at 1600, Last dose on Thu12/10/24 at 0400, STAT New Bag 12/05/2024 5:05 AM EDT 2 g 220 mL/hr New Bag 12/04/2024 3:45 PM EDT 2 g 220 mL/hr New Bag 12/04/2024 4:20 AM EDT 2 g 220 mL/hr cetirizine (ZyrTEC) tablet 5 mg 5 mg, Oral, Daily, First dose on Thu11/30/24 at 0900, Until Discontinued, Routine Given 12/10/2024 8:44 AM EDT 5 mg Given 12/09/2024 9:02 AM EDT 5 mg Given 12/08/2024 9:08 AM EDT 5 mg cyanocobalamin (Vitamin B-12) tablet 1,000 mcg 1,000 mcg, Oral, Daily, First dose on Thu11/30/24 at 0900, Until Discontinued Given 12/10/2024 8:43 AM EDT 1,000 mc g Given 12/09/2024 9:03 AM EDT 1,000 mcg Given 12/08/2024 9:10 AM EDT 1,000 mcg dextrose 10 % (D10W) bolus 125 mL 125 mL, Intravenous, Every 15 min PRN, Starting on Thu11/30/24 at 0126, Until 12/10/24 at 2003, Administer over 15 Minutes, Routine, low blood sugar BG 51-89 mg/dL dextrose 10 % (D10W) bolus 250 mL 250 mL, Intravenous, Every 15 min PRN, Starting on Thu11/30/24 at 0126, Until Thu12/10/24 at 2003, Administer over 15 Minutes, Routine, PRN low blood sugar BG =/<50 mg/dL enoxaparin (Lovenox) syringe 120 mg 120 mg (rounded from 115 mg = 1 mg/kg 115 kg), Subcutaneous, Every 12 hours, First dose (after last modification) on Thu12/07/24 at 2100, Until Discontinued, Routine, On hold since Thu12/04/2024 at 1102 until manually unheld ferrous sulfate EC tablet 324 mg 324 mg, Oral, Daily with breakfast, First dose on Thu11/30/24 at 0800, Until Discontinued Given 12/10/2024 8:44 AM EDT 324 mg Given 12/09/2024 9:03 AM EDT 324 mg Given 12/08/2024 9:08 AM EDT 324 mg FLUoxetine (PROzac) capsule 40 mg 40 mg, Oral, Daily, First dose on Thu11/30/24 at 0900, Until Discontinued Given 12/10/2024 8:43 AM EDT 40 mg Given 12/09/2024 9:02 AM EDT 40 mg Given 12/08/2024 9:10 AM EDT 40 mg furosemide (Lasix) tablet 40 mg 40 mg, Oral, Daily, First dose on Thu12/04/24 at 0900, Until Discontinued, Routine Given 12/10/2024 8:43 AM EDT 40 mg Given 12/09/2024 9:03 AM EDT 40 mg Given 12/08/2024 9:08 AM EDT 40 mg gabapentin (Neurontin) capsule 100 mg 100 mg, Oral, 4 times daily, First dose (after last modification) on Thu11/30/24 at 0900, Until Discontinued Given 12/10/2024 2:15 PM EDT 100 mg Given 12/10/2024 8:44 AM EDT 100 mg Given 12/09/2024 9:02 PM EDT 100 mg gabapentin (Neurontin) capsule 600 mg 600 mg, Oral, 4 times daily, First dose on Thu11/30/24 at 0130, Until Discontinued Given 11/30/2024 1:37 AM EDT 600 mg Gadopiclenol (Elucirem) injection 12.1 mL 12.1 mL (0.1 mL/kg 121 kg), Intravenous, Once in imaging, 1 dose, Starting on Thu12/02/24 at 0004, Until Thu12/02/24 at 0021, Routine, Imaging Protocol Orders Given 12/02/2024 12:21 AM EDT 12.1 mL glucagon (human recombinant) injection 1 mg 1 mg, Intramuscular, Every 15 min PRN, Starting on Thu11/30/24 at 0126, Until Thu12/10/24 at 2003, Routine, low blood sugar per Hypoglycemia Prevention and Treatment protocol glucose (Glutose) 40 % oral gel 15-30 grams of glucose 15-30 grams of glucose, Sublingual, Every 15 min PRN, Starting on Thu11/30/24 at 0126, Until Thu12/10/24 at 2002, Routine, low blood sugar, per Hypoglycemia Prevention and Treatment protocol hydrOXYzine HCl (Atarax) tablet 25 mg 25 mg, Oral, 3 times daily PRN, Starting on Thu11/30/24 at 0119, Until Thu12/10/24 at 2003, Routine, itching, anxiety, nausea, vomiting Given 12/09/2024 5:03 PM EDT 25 mg Given 12/09/2024 10:35 AM EDT 25 mg insulin lispro (Admelog) 100 units/mL injection - Correction - Standard Dose 0-5 Units, Subcutaneous, 3 times daily with meals, First dose on Thu11/30/24 at 0830, Until Discontinued, Routine Given 12/10/2024 12:19 PM EDT 3 Units Left Lower Abdomen Given 12/07/2024 8:27 AM EDT 1 Units Le ft Lower Abdomen Given 12/06/2024 12:54 PM EDT 1 Units L eft Lower Abdomen lactated Ringer's bolus 500 mL 500 mL, Intravenous, Once, 1 dose, On Thu12/03/24 at 0045, Administer over 2 Hours, STAT New Bag 12/03/2024 1:01 AM EDT 500 mL 2 50 mL/hr lactated Ringer's infusion 300 mL 300 mL, Intravenous, Once (Bolus), 1 dose, On Thu11/29/24 at 2300, STAT New Bag 11/29/2024 11:17 PM EDT 300 mL lactated Ringer's infusion 100 mL/hr, Intravenous, Continuous, Starting on Thu11/30/24 at 0130, Until Thu11/30/24 at 1550, Routine New Bag 11/30/2024 2:52 AM EDT 100 mL/hr 100 mL /hr lactobacillus acidophilus (Floranex) packet 1 packet 1 packet, Oral, Daily, First dose on Thu11/30/24 at 0900, Until Discontinued Given 11/30/2024 8:30 AM EDT 1 packet levETIRAcetam (Keppra) injection 2,500 mg 2,500 mg, Intravenous, Once, 1 dose, On Thu11/29/24 at 2345, Routine Given 11/29/2024 11:58 PM EDT 2,500 mg levETIRAcetam (Keppra) tablet 1,000 mg 1,000 mg, Oral, 2 times daily, First dose on Thu12/10/24 at 0900, Until Discontinued, Routine Given 12/10/2024 8:43 AM EDT 1,000 mg levETIRAcetam (Keppra) tablet 500 mg 500 mg, Oral, 2 times daily, First dose on Thu11/30/24 at 0900, Until Discontinued, Routine Given 12/05/2024 8:47 AM EDT 500 mg Given 12/04/2024 9:44 PM EDT 500 mg Given 12/04/2024 8:43 AM EDT 500 mg levETIRAcetam (Keppra) tablet 750 mg 750 mg, Oral, 2 times daily, 9 doses, First dose (after last modification) on Thu12/05/24 at 2100, Last dose on Thu12/09/24 at 2100, Routine Given 12/09/2024 8:46 PM EDT 750 mg Given 12/09/2024 9:02 AM EDT 750 mg Given 12/08/2024 8:13 PM EDT 750 mg lidocaine 0.9% in sodium bicarbonate (buffered lidocaine) solution solution As needed, Starting on Thu12/06/24 at 1613, Until Thu12/06/24 at 1611, Routine, Intraprocedure Given 12/06/2024 4:11 PM EDT 10 mL magnesium oxide (Mag-Ox) tablet 400 mg 400 mg, Oral, 2 times daily, First dose on Thu11/30/24 at 0130, Until Discontinued Given 12/10/2024 8:43 AM EDT 400 mg Given 12/09/2024 8:46 PM EDT 400 mg Given 12/09/2024 9:03 AM EDT 400 mg magnesium sulfate in D5W IVPB 1 g 1 g, Intravenous, Once, 1 dose, On Thu12/06/24 at 1030, Routine New Bag 12/06/2024 9:51 AM EDT 1 g magnesium sulfate in D5W IVPB 1 g 1 g, Intravenous, Once, 1 dose, On Thu12/07/24 at 1045, Routine New Bag 12/07/2024 10:21 AM EDT 1 g magnesium sulfate IVPB 2 g 2 g, Intravenous, Once, 1 dose, On Thu12/05/24 at 1145, Routine New Bag 12/05/2024 1:18 PM EDT 2 g 25 mL/hr magnesium sulfate IVPB 4 g 4 g, Intravenous, Once, 1 dose, On Thu11/29/24 at 2200, STAT New 11/29/2024 10:34 PM EDT 4 g 25 m L/hr melatonin tablet 6 mg 6 mg, Oral, Nightly, First dose on Thu11/30/24 at 0130, Until Discontinued, Routine Given 12/09/2024 8:46 PM EDT 6 mg Given 12/08/2024 8:13 PM EDT 6 mg Given 12/07/2024 8:49 PM EDT 6 mg metoprolol tartrate (Lopressor) injection 2.5 mg 2.5 mg, Intravenous, Every 5 min PRN, 3 doses, Starting on 12/03/24 at 0746, Until 12/04/24 at 1101, Routine, Sustained AF (longer than 15-20 minutes) or symptomatic AF with RVR Given 12/04/2024 11:01 AM EDT 2.5 mg Given 12/04/2024 10:28 AM EDT 2.5 mg Given 12/04/2024 1:50 AM EDT 2.5 mg metoprolol tartrate (Lopressor) injection 2.5 mg 2.5 mg, Intravenous, Every 5 min PRN, 3 doses, Starting on Thu12/04/24 at 1125, Until Thu12/05/24 at 1506, Routine, Sustained AF (longer than 15-20 minutes) or symptomatic AF with RVR Given 12/05/2024 3:06 PM EDT 2.5 mg Given 12/05/2024 2:31 PM EDT 2.5 mg Given 12/05/2024 1:45 PM EDT 2.5 mg metoprolol tartrate (Lopressor) split tablet 12.5 mg 12.5 mg, Oral, 2 times daily, First dose (after last modification) on Thu12/01/24 at 2100, Until Discontinued, Routine Given 12/04/2024 8:43 AM EDT 12.5 mg Given 12/03/2024 9:15 PM EDT 12.5 mg Given 12/03/2024 8:04 AM EDT 12.5 mg metoprolol tartrate (Lopressor) split tablet 12.5 mg 12.5 mg, Oral, Once, 1 dose, On Thu12/04/24 at 1215, Routine Given 12/04/2024 11:40 AM EDT 12.5 mg metoprolol tartrate (Lopressor) split tablet 12.5 mg 12.5 mg, Oral, Once, 1 dose, On Thu12/06/24 at 1030, Routine Given 12/06/2024 9:51 AM EDT 12.5 mg metoprolol tartrate (Lopressor) tablet 25 mg 25 mg, Oral, 2 times daily, First dose (after last modification) on Thu12/04/24 at 2100, Until Discontinued, Routine Given 12/05/2024 7:41 AM EDT 25 mg Given 12/04/2024 9:44 PM EDT 25 mg metoprolol tartrate (Lopressor) tablet 25 mg 25 mg, Oral, 3 times daily, First dose (after last modification) on Thu12/05/24 at 1600, Until Discontinued, Routine Given 12/06/2024 8:09 AM EDT 25 mg Given 12/05/2024 8:28 PM EDT 25 mg Given 12/05/2024 4:05 PM EDT 25 mg metoprolol tartrate (Lopressor) tablet 25 mg 25 mg, Oral, 3 times daily, First dose (after last modification) on Thu12/06/24 at 2100, Until Discontinued, Routine Given 12/10/2024 3:28 PM EDT 25 mg Given 12/10/2024 8:44 AM EDT 25 mg Given 12/09/2024 8:46 PM EDT 25 mg metoprolol tartrate (Lopressor) tablet 50 mg 50 mg, Oral, 2 times daily, First dose on Thu11/30/24 at 0130, Until Discontinued, Routine Given 12/01/2024 8:57 AM EDT 50 mg Given 11/30/2024 9:23 PM EDT 50 mg Given 11/30/2024 8:29 AM EDT 50 mg mometasone-formoterol (Dulera 200) 200-5 MCG/ACT inhaler 2 puff 2 puff, Inhalation, 2 times daily, First dose on Thu11/30/24 at 0130, Until Discontinued Given 12/10/2024 8:53 AM EDT 2 puffs Given 12/09/2024 8:49 PM EDT 2 puffs Given 12/09/2024 9:02 AM EDT 2 puffs montelukast (Singulair) tablet 10 mg 10 mg, Oral, Nightly, First dose on Thu11/30/24 at 0130, Until Discontinued, Routine Given 12/09/2024 8:46 PM EDT 10 mg Given 12/08/2024 8:13 PM EDT 10 mg Given 12/07/2024 8:49 PM EDT 10 mg mupirocin (Bactroban) 2 % ointment 1 Application Topical, 2 times daily, 10 doses, First dose on Thu11/30/24 at 0130, Last dose on Thu12/04/24 at 0900, Routine Given 12/04/2024 8:43 AM EDT 1 Application Given 12/03/2024 9:16 PM EDT 1 Application Given 12/03/2024 8:04 AM EDT 1 Application [id number]-[id number] (Cortisporin) otic solution 3 drop 3 drop, Right Ear, Every 8 hours scheduled, First dose on Thu12/02/24 at 2200, Until Discontinued, Routine Given 12/03/2024 1:45 PM EDT 3 drops Given 12/03/2024 6:53 AM EDT 3 drops Given 12/02/2024 9:45 PM EDT 3 drops cmmbxzkq-ulpoedicq-hxuxmueihzpygl (Cortisporin) otic solution 4 drop 4 drop, Right Ear, 4 times daily, First dose (after last modification) on Thu12/03/24 at 2200, Until Discontinued, Routine Given 12/05/2024 8:49 AM EDT 4 drops Given 12/04/2024 5:46 PM EDT 4 drops Given 12/04/2024 2:36 PM EDT 4 drops nystatin (Mycostatin) 769726 UNIT/GM powder Topical, 2 times daily, First dose on Thu11/30/24 at 0130, Until Discontinued, Routine Given 12/09/2024 8:47 PM EDT Given 12/09/2024 9:04 AM EDT Given 12/08/2024 8:14 PM EDT ondansetron (Zofran) 4 MG/5ML solution 4 mg 4 mg, Oral, Every 6 hours PRN, Starting on Thu12/06/24 at 0927, Until Thu12/10/24 at 2002, Routine, nausea, vomiting ondansetron (Zofran) injection 4 mg 4 mg, Intravenous, Every 6 hours PRN, Starting on Thu12/06/24 at 0927, Until Thu12/10/24 at 2002, Routine, vomiting, nausea Given 12/06/2024 9:41 AM EDT 4 mg ondansetron (Zofran) tablet 8 mg 8 mg, Oral, 2 times daily, First dose on Thu11/30/24 at 0130, Until Discontinued, Routine Given 11/30/2024 8:30 AM EDT 8 mg ondansetron ODT (Zofran-ODT) disintegrating tablet 4 mg 4 mg, Oral, Every 6 hours PRN, Starting on Thu12/06/24 at 0927, Until Thu12/10/24 at 2002, Routine, nausea, vomiting Given 12/10/2024 9:40 AM EDT 4 mg Given 12/09/2024 1:39 PM EDT 4 mg Given 12/08/2024 9:23 AM EDT 4 mg pantoprazole (Protonix) EC tablet 40 mg 40 mg, Oral, Daily, First dose on Thu11/30/24 at 0900, Until Discontinued, Routine Given 12/10/2024 8:43 AM EDT 40 mg Given 12/09/2024 9:03 AM EDT 40 mg Given 12/08/2024 9:08 AM EDT 40 mg piperacillin-tazobactam (Zosyn) 4.5 g in sodium chloride 0.9% 100 mL IVPB (vial adapter required) 4.5 g, Intravenous, Every 8 hours, First dose on Thu12/03/24 at 0045, Until Discontinued, Routine New Bag 12/03/2024 8:05 AM EDT 4.5 g 36. 7 mL/hr New Bag 12/03/2024 1:57 AM EDT 4.5 g 36.7 mL/hr potassium chloride (Klor-Con) packet 40 mEq 40 mEq, Oral, Once, 1 dose, On Thu12/06/24 at 1600, Routine Given 12/06/2024 6:14 PM EDT 40 mEq potassium chloride (Klor-Con) packet 40 mEq 40 mEq, Oral, Once, 1 dose, On Thu12/07/24 at 1045, Routine Given 12/07/2024 10:20 AM EDT 40 mEq potassium chloride (Klor-Con) packet 40 mEq 40 mEq, Oral, 3 times daily, First dose on Thu12/10/24 at 0900, Until Discontinued, Routine Given 12/10/2024 4:18 PM EDT 40 mEq Given 12/10/2024 2:16 PM EDT 40 mEq Given 12/10/2024 8:42 AM EDT 40 mEq potassium chloride (Klor-Con) packet 60 mEq 60 mEq, Oral, Once, 1 dose, On Thu12/06/24 at 1030, Routine Given 12/06/2024 12:54 PM EDT 60 mEq potassium chloride CR (Klor-Con) ER tablet 20 mEq 20 mEq, Oral, Once, 1 dose, On Thu12/03/24 at 1630, Routine Given 12/03/2024 5:58 PM EDT 20 mEq potassium chloride CR (Klor-Con) ER tablet 20 mEq 20 mEq, Oral, Once, 1 dose, On Thu12/05/24 at 0830, Routine Given 12/05/2024 8:47 AM EDT 20 mEq prochlorperazine (Compazine) tablet 10 mg 10 mg, Oral, Every 6 hours PRN, Starting on Thu11/30/24 at 0121, Until Thu12/10/24 at 2003, Routine, nausea, vomiting Given 12/06/2024 4:45 AM EDT 10 mg Given 12/05/2024 1:28 PM EDT 10 mg Given 12/04/2024 9:56 AM EDT 10 mg sodium chloride 0.9 % flush 10 mL 10 mL, Intravenous, Every 12 hours, First dose on Thu11/30/24 at 0130, Until Discontinued, Routine Given 12/09/2024 8:47 PM EDT 10 mL Given 12/09/2024 9:08 AM EDT 10 mL Given 12/08/2024 8:14 PM EDT 10 mL sodium chloride 0.9 % flush 10 mL 10 mL, Intravenous, As needed, Starting on Thu11/30/24 at 0121, Until 12/10/24 at 2003, Routine, line care Tiotropium [place] Monohydrate (Spiriva Respimat) 2.5 MCG/ACT inhaler 2 puff 2 puff, Inhalation, Daily, First dose on Thu11/30/24 at 0900, Until Discontinued Given 12/10/2024 8:54 AM EDT 2 puffs Given 12/09/2024 9:04 AM EDT 2 puffs Given 12/08/2024 9:13 AM EDT 2 puffs vancomycin (Vancocin) 2,250 mg in sodium chloride 0.9 % 500 mL 2,250 mg, Intravenous, Once, 1 dose, On Thu12/05/24 at 0600, at 252.2 mL/hr, Routine Given 12/05/2024 7:40 AM EDT 2,250 mg 252.2 m L/hr vancomycin (Vancocin) 2,500 mg in sodium chloride 0.9 % 500 mL IVPB 2,500 mg, Intravenous, Once, 1 dose, On 12/03/24 at 1645, at 228 mL/hr, Routine Given 12/03/2024 5:57 PM EDT 2,500 mg 228 mL/hr vancomycin in NS (Vancocin) IVPB 1,500 mg 1,500 mg, Intravenous, Once, 1 dose, On Thu12/07/24 at 1515, at 166.7 mL/hr, Routine New Bag 12/07/2024 10:42 PM EDT 1,500 mg 166.7 mL/hr documented in this encounter Active and Recently Administered Medications Times are shown in EDT. Scheduled Medication Order 12/08/2024 12/09/2024 12/10/2024 ampicillin (Omnipen) 2 g in sodium chloride 0.9% 100 mL IVPB (vial adapter required) (CANCELED) 2 g, Intravenous, Every 6 hours, 28 doses, First dose on Sun 25 at 1200, Last dose on Thu12/11/24 at 1000, Routine 0028 (New Bag - Provider: Catrina Antonio)0610 (New Bag - Provider: Catrina Antonio)1221 (New Bag - Provider: Tootie Sullivan RN)1222 (Paused - Provider: Tootie Sullivan RN)1536 (Restarted - Provider: Tootie Sullivan RN)2107 (New Bag - Provider: Lila Shin) 0339 (New Bag - Provider: Lila Shin)0901 (New Bag - Provider: Luis Angel Cantu) calcium-vitamin D 500-200 MG-UNIT per tablet 1 tablet 1 tablet, Oral, Daily, First dose on Thu11/30/24 at 0900, Until Discontinued 09 (Given - Provider: Ruddy Gonzalez RN) 09 (Given - Provider: Luis Angel Cantu) 0844 (Given - Provider: Summer Monet RN) cefepime (Maxipime) 2 g in sodium chloride 0.9% 100 mL IVPB (vial adapter required) (CANCELED) 2 g, Intravenous, Every 12 hours, First dose on Thu12/05/24 at 1545, Until Discontinued, Routine 0051 (New Bag - Provider: Catrina Antonio)1610 (New Bag - Provider: Tootie Sullivan RN - Comment: Loss IV access) 0414 (New Bag - Provider: Lila Shin) cetirizine (ZyrTEC) tablet 5 mg 5 mg, Oral, Daily, First dose on Thu11/30/24 at 0900, Until Discontinued, Routine 0908 (Given - Provider: Ruddy Gonzalez RN) 09 (Given - Provider: Luis Angel Cantu) 0844 (Given - Provider: Summer Monet RN) cyanocobalamin (Vitamin B-12) tablet 1,000 mcg 1,000 mcg, Oral, Daily, First dose on Thu11/30/24 at 0900, Until Discontinued 0910 (Given - Provider: Ruddy Gonzalez RN) 09 (Given - Provider: Luis Angel Cantu) 0843 (Given - Provider: Summer Monet RN) enoxaparin (Lovenox) syringe 120 mg 120 mg (rounded from 115 mg = 1 mg/kg 115 kg), Subcutaneous, Every 12 hours, First dose (after last modification) on Thu12/07/24 at 2100, Until Discontinued, Routine, On hold since Thu12/04/2024 at 1102 until manually unheld 0900 (Dose Auto Held)2099 (Dose Auto Held) 09 (Dose Auto Held)2099 (Dose Auto Held) 0900 (Dose Auto Held)2002 (Unheld by provider - Provider: Automatic Discharge Provider) ferrous sulfate EC tablet 324 mg 324 mg, Oral, Daily with breakfast, First dose on Thu11/30/24 at 0800, Until Discontinued 09 (Given - Provider: Ruddy Gonzalez RN) 09 (Given - Provider: Luis Angel Cantu) 0844 (Given - Provider: Summer Monet, JOSE MARTIN) FLUoxetine (PROzac) capsule 40 mg 40 mg, Oral, Daily, First dose on Thu11/30/24 at 0900, Until Discontinued 09 (Given - Provider: Ruddy Gonzalez RN) 09 (Given - Provider: Luis Angel Cantu) 0843 (Given - Provider: Summer Monet, JOSE MARTIN) furosemide (Lasix) tablet 40 mg 40 mg, Oral, Daily, First dose on Thu12/04/24 at 0900, Until Discontinued, Routine 09 (Given - Provider: Ruddy Gonzalez RN) 09 (Given - Provider: Luis Angel Cantu) 0843 (Given - Provider: Summer Monet, JOSE MARTIN) gabapentin (Neurontin) capsule 100 mg 100 mg, Oral, 4 times daily, First dose (after last modification) on Thu11/30/24 at 0900, Until Discontinued 0907 (Given - Provider: Ruddy Gonzalez RN)1340 (Given - Provider: Tootie Sullivan, JOSE MARTIN)1748 (Given - Provider: Tootie Sullivan, JOSE MARTIN)2200 (Canceled Entry - Provider: Lila Shin - Comment: too close to previous dose) 0902 (Given - Provider: Luis Angel Cantu)1408 (Not Given - Provider: Luis Angel Cantu - Reason: Patient/family refused)1703 (Given - Provider: Luis Angel Cantu)2102 (Given - Provider: Lila Shin) 0844 (Given - Provider: Summer Monet, JOSE MARTIN)1415 (Given - Provider: Summer Monet RN)1800 (Canceled Entry - Provider: Automatic Discharge Provider - Comment: Automatically canceled at discontinue of medication order) insulin lispro (Admelog) 100 units/mL injection - Correction - Standard Dose 0-5 Units, Subcutaneous, 3 times daily with meals, First dose on Thu11/30/24 at 0830, Until Discontinued, Routine 0924 (Not Given - Provider: Tootie Sullivan RN - Reason: Order parameters not met)1310 (Not Given - Provider: Tootie Sullivan RN - Reason: Order parameters not met)1729 (Not Given - Provider: Tootie Sullivan RN - Reason: Order parameters not met) 0924 (Not Given - Provider: Luis Angel Cantu - Reason: Order parameters not met - Comment: glucose 118)1253 (Not Given - Provider: Luis Angel Cantu - Reason: Patient/family refused)1739 (Not Given - Provider: Luis Angel Cantu - Reason: Order parameters not met - Comment: 120) 1040 (Not Given - Provider: Summer Monet RN - Reason: Order parameters not met)1219 (Given - Provider: Summer Monet RN)1730 (Canceled Entry - Provider: Automatic Discharge Provider - Comment: Automatically canceled at discontinue of medication order) insulin lispro (Admelog) injection - Correction - Nighttime Dose 0-3 Units, Subcutaneous, 2 times nightly (2100 & 0300), First dose on Thu11/30/24 at 0300, Until Discontinued, Routine 0225 (Not Given - Provider: Catrina Antonio - Reason: Order parameters not met)2007 (Not Given - Provider: Lila Shin - Reason: Order parameters not met) 0300 (Canceled Entry - Provider: Lila Shin)2004 (Not Given - Provider: Lila Shin - Reason: Order parameters not met) 0300 (Canceled Entry - Provider: Lila Shin - Comment: not indicated) levETIRAcetam (Keppra) tablet 1,000 mg 1,000 mg, Oral, 2 times daily, First dose on Thu12/10/24 at 0900, Until Discontinued, Routine 0843 (Given - Provid er: Summer Monet RN) levETIRAcetam (Keppra) tablet 750 mg (COMPLETED) 750 mg, Oral, 2 times daily, 9 doses, First dose (after last modification) on Thu12/05/24 at 2100, Last dose on Thu12/09/24 at 2100, Routine 09 (Given - Provider: Ruddy Gonzalez RN)2012 (Given - Provider: Lila Shin) 901 (Given - Provider: Luis Angel Cantu)2045 (Given - Provider: Lila Shin) magnesium oxide (Mag-Ox) tablet 400 mg 400 mg, Oral, 2 times daily, First dose on Thu11/30/24 at 0130, Until Discontinued 906 (Given - Provider: Ruddy Gonzalez RN)2012 (Given - Provider: Lila Shin) 902 (Given - Provider: Luis Angel Cantu)2045 (Given - Provider: Lila Shin) 0843 (Given - Provider: Summer Monet, RN) melatonin tablet 6 mg 6 mg, Oral, Nightly, First dose on Thu11/30/24 at 0130, Until Discontinued, Routine 2012 (Given - Provider: Lila Shin) 2045 (Given - Provider: Lila Shin) metoprolol tartrate (Lopressor) tablet 25 mg 25 mg, Oral, 3 times daily, First dose (after last modification) on Thu12/06/24 at 2100, Until Discontinued, Routine 908 (Given - Provider: Ruddy Gonzalez RN)1628 (Given - Provider: Tootie Sullivan RN)2012 (Given - Provider: Lila Shin) 902 (Given - Provider: Luis Angel Cantu)1703 (Given - Provider: Luis Angel Cantu)2045 (Given - Provider: Lila Shin) 0844 (Given - Provider: Summer Monet, RN)1528 (Given - Provider: Summer Monet, RN) mometasone-formoterol (Dulera 200) 200-5 MCG/ACT inhaler 2 puff(Linked Group 1) 2 puff, Inhalation, 2 times daily, First dose on Thu11/30/24 at 0130, Until Discontinued 913 (Given - Provider: Ruddy Gonzalez RN)2012 (Not Given - Provider: Lila Shin - Reason: Medication not available) 0902 (Given - Provider: Luis Angel Cantu)2048 (Given - Provider: Lila Shin) 0853 (Given - Provider: Summer Monet RN) montelukast (Singulair) tablet 10 mg 10 mg, Oral, Nightly, First dose on Thu11/30/24 at 0130, Until Discontinued, Routine 2012 (Given - Provider: Lila Shin) 2045 (Given - Provider: Lila Shin) nystatin (Mycostatin) [id number] UNIT/GM powder Topical, 2 times daily, First dose on Thu11/30/24 at 0130, Until Discontinued, Routine 912 (Given - Provider: Ruddy Gonzalez RN)2013 (Given - Provider: Lila Shin) 903 (Given - Provider: Luis Angel Cantu)2046 (Given - Provider: Lila Shin) 103 (Not Given - Provider: Summer Monet RN - Reason: Patient/family refused) pantoprazole (Protonix) EC tablet 40 mg 40 mg, Oral, Daily, First dose on Thu11/30/24 at 0900, Until Discontinued, Routine 09 (Given - Provider: Ruddy Gonzalez RN) 09 (Given - Provider: Luis Angel Cantu) 0843 (Given - Provider: Summer Monet RN) potassium chloride (Klor-Con) packet 40 mEq 40 mEq, Oral, 3 times daily, First dose on Thu12/10/24 at 0900, Until Discontinued, Routine 0842 (Given - Provid er: Summer Monet RN)1416 (Given - Provider: Summer Monet RN - Comment: give early per provider)1618 (Given - Provider: Summer Monet RN - Comment: ok to give 2100 dose early per provider) sodium chloride 0.9 % flush 10 mL(Linked Group 2) 10 mL, Intravenous, Every 12 hours, First dose on Thu11/30/24 at 0130, Until Discontinued, Routine 913 (Given - Provider: Ruddy Gonzalez RN)2013 (Given - Provider: Lila Shin) 907 (Given - Provider: Luis Angel Cantu)2046 (Given - Provider: Lila Shin) 103 (Canceled Entry - Provider: Summer Monet RN) Tiotropium [place] Monohydrate (Spiriva Respimat) 2.5 MCG/ACT inhaler 2 puff(Linked Group 1) 2 puff, Inhalation, Daily, First dose on Thu11/30/24 at 0900, Until Discontinued 912 (Given - Provider: Ruddy Gonzalez, RN) 903 (Given - Provider: Luis Angel Cantu) 08 (Given - Provider: Summer Monet, JOSE MARTIN) PRN Medication Order 12/08/2024 12/09/2024 12/10/2024 acetaminophen (Tylenol) tablet 650 mg 650 mg, Oral, Every 6 hours PRN, Starting on Thu11/30/24 at 0127, Until 12/10/24 at 2002, Routine, mild pain, moderate pain, headaches, fever, fever > 100.4 calcium carbonate (Tums) chewable tablet 500 mg 500 mg, Oral, 4 times daily PRN, Starting on Thu11/30/24 at 0117, Until 12/10/24 at 2002, Routine, indigestion, heartburn dextrose 10 % (D10W) bolus 125 mL(Linked Group 3) 125 mL, Intravenous, Every 15 min PRN, Starting on Thu11/30/24 at 0126, Until 12/10/24 at 2002, Administer over 15 Minutes, Routine, low blood sugar BG 51-89 mg/dL dextrose 10 % (D10W) bolus 250 mL(Linked Group 3) 250 mL, Intravenous, Every 15 min PRN, Starting on Thu11/30/24 at 0126, Until 12/10/24 at 2002, Administer over 15 Minutes, Routine, PRN low blood sugar BG =/<50 mg/dL glucagon (human recombinant) injection 1 mg(Linked Group 3) 1 mg, Intramuscular, Every 15 min PRN, Starting on Thu11/30/24 at 0126, Until 12/10/24 at 2002, Routine, low blood sugar per Hypoglycemia Prevention and Treatment protocol glucose (Glutose) 40 % oral gel 15-30 grams of glucose(Linked Group 3) 15-30 grams of glucose, Sublingual, Every 15 min PRN, Starting on Thu11/30/24 at 0126, Until 12/10/24 at 2002, Routine, low blood sugar, per Hypoglycemia Prevention and Treatment protocol hydrOXYzine HCl (Atarax) tablet 25 mg 25 mg, Oral, 3 times daily PRN, Starting on Thu11/30/24 at 0119, Until 12/10/24 at 2002, Routine, itching, anxiety, nausea, vomiting 1035 (Given - Provider: Luis Angel Cantu)1703 (Given - Provider: Luis Angel Cantu) ipratropium-albuterol (Duo-Neb) 0.5-2.5 mg/3 mL nebulizer solution 3 mL 3 mL, Nebulization, Every 4 hours PRN, Starting on Thu11/30/24 at 0126, Until Thu12/10/24 at 2002, Routine, wheezing, shortness of breath magic butt balm (Cholestyramine) ointment Topical, Every 1 hour PRN, Starting on Thu11/30/24 at 0119, Until 12/10/24 at 2002, Routine, diaper rash magic mouthwash BLM (FIRST-Mouthwash) suspension 15 mL 15 mL, Swish & Spit, 4 times daily PRN, Starting on Thu11/30/24 at 0119, Until 12/10/24 at 2002, Routine, mucositis ondansetron (Zofran) 4 MG/5ML solution 4 mg(Linked Group 4) 4 mg, Oral, Every 6 hours PRN, Starting on Thu12/06/24 at 0927, Until 12/10/24 at 2002, Routine, nausea, vomiting 0923 (See Alternative - Provider: Tootie Sullivan RN) 1339 (See Alternative - Provider: Luis Angel Cantu) 0940 (See Alternative - Provider: Summer Monet, RN) ondansetron (Zofran) injection 4 mg(Linked Group 4) 4 mg, Intravenous, Every 6 hours PRN, Starting on Thu12/06/24 at 0927, Until 12/10/24 at 2002, Routine, vomiting, nausea 0923 (See Alternative - Provider: Tootie Sullivan RN) 1339 (See Alternative - Provider: Luis Angel Cantu) 0940 (See Alternative - Provider: Summer Monet, RN) ondansetron ODT (Zofran-ODT) disintegrating tablet 4 mg(Linked Group 4) 4 mg, Oral, Every 6 hours PRN, Starting on Thu12/06/24 at 0927, Until 12/10/24 at 2002, Routine, nausea, vomiting 0923 (Given - Provider: Tootie Sullivan RN) 7726 (Given - Provider: Luis Angel Cantu) 9717 (Given - Provider: Summer Monet RN) polyethylene glycol (Miralax) packet 17 g 17 g, Oral, 2 times daily PRN, Starting on Thu11/30/24 at 0127, Until 12/10/24 at 2002, Routine, constipation prochlorperazine (Compazine) tablet 10 mg 10 mg, Oral, Every 6 hours PRN, Starting on Thu11/30/24 at 0121, Until 12/10/24 at 2002, Routine, nausea, vomiting sodium chloride 0.9 % flush 10 mL(Linked Group 2) 10 mL, Intravenous, As needed, Starting on Thu11/30/24 at 0121, Until 12/10/24 at 2002, Routine, line care Linked Groups Order Group 1: Tiotropium [place] Monohydrate (Spiriva Respimat) 2.5 MCG/ACT inhaler 2 puffJump to med 2 puff, Inhalation, Daily, First dose on Thu11/30/24 at 0900, Until Discontinued And mometasone-formoterol (Dulera 200) 200-5 MCG/ACT inhaler 2 puffJump to med 2 puff, Inhalation, 2 times daily, First dose on Thu11/30/24 at 0130, Until Discontinued Group 2: Insert peripheral IV (COMPLETED) Once, On Thu11/30/24 at 0122, For 1 occurrence And Saline lock IV (CANCELED) Once, On Thu11/30/24 at 0122, For 1 occurrence And sodium chloride 0.9 % flush 10 mLJump to med 10 mL, Intravenous, Every 12 hours, First dose on Thu11/30/24 at 0130, Until Discontinued, Routine And sodium chloride 0.9 % flush 10 mLJump to med 10 mL, Intravenous, As needed, Starting on Thu11/30/24 at 012, Until 12/10/24 at 2002, Routine, line care Group 3: glucose (Glutose) 40 % oral gel 15-30 grams of glucoseJump to med 15-30 grams of glucose, Sublingual, Every 15 min PRN, Starting on Thu11/30/24 at 0126, Until 12/10/24 at 2002, Routine, low blood sugar, per Hypoglycemia Prevention and Treatment protocol Or dextrose 10 % (D10W) bolus 125 mLJump to med 125 mL, Intravenous, Every 15 min PRN, Starting on Thu11/30/24 at 012, Until 12/10/24 at 2002, Administer over 15 Minutes, Routine, low blood sugar BG 51-89 mg/dL Or dextrose 10 % (D10W) bolus 250 mLJump to med 250 mL, Intravenous, Every 15 min PRN, Starting on Thu11/30/24 at 012, Until Thu12/10/24 at 2002, Administer over 15 Minutes, Routine, PRN low blood sugar BG =/<50 mg/dL Or glucagon (human recombinant) injection 1 mgJump to med 1 mg, Intramuscular, Every 15 min PRN, Starting on Thu11/30/24 at 012, Until 12/10/24 at 2002, Routine, low blood sugar per Hypoglycemia Prevention and Treatment protocol Group 4: ondansetron ODT (Zofran-ODT) disintegrating tablet 4 mgJump to med 4 mg, Oral, Every 6 hours PRN, Starting on Thu12/06/24 at 09, Until Thu12/10/24 at 2002, Routine, nausea, vomiting Or ondansetron (Zofran) injection 4 mgJump to med 4 mg, Intravenous, Every 6 hours PRN, Starting on Thu12/06/24 at 09, Until 12/10/24 at 2002, Routine, vomiting, nausea Or ondansetron (Zofran) 4 MG/5ML solution 4 mgJump to med 4 mg, Oral, Every 6 hours PRN, Starting on Thu12/06/24 at 09, Until 12/10/24 at 2002, Routine, nausea, vomiting documented in this encounter Additional Health Concerns Infection Onset Date Last Indicated Resolved Time 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
--- OUTSIDE RECORDS SUMMARY | 2024-12-15 09:45 | XMS_ITS ---
Author Organization [facility] [place] Address [address] [place] [address] Care Team Providers Care Plant Controls Specialist Name Role Phone TRAY DEY Unavailable [phone] Tray Dey MD Unavailable Unavailable Yamilet Coleman Unavailable [phone] Allergies Allergen (clinical drug ingredient) Drug/Non Drug Allergy documented on EMR Reaction Allergy Type Onset Date Status Keflex Unknown Drug Allergy Active lisinopril lisinopril Unknown Drug Allergy Activ e meloxicam meloxicam Unknown Drug Allergy Active Results Component Value Reference Range Notes Magnesium, Serum Reviewed date:12/16/2024 08:51:30 AM Interpretation: Performing Lab:[facility] [address] [place] [address], Phone - [phone], Director - [facility] Notes/Report: Magnesium 1.0 1.6-2.3 mg/dL TSH Reviewed date:12/16/2024 08:51:26 AM Interpretation: Performing Lab:[facility], Phone - [phone], [facility] Notes/Report: TSH 2.610 0.450-4.500 uIU/mL Comp. Metabolic Panel (14) Reviewed date:12/16/2024 08:50:26 AM Interpretation: Performing Lab:[facility], Phone - [phone], Director - [facility] Notes/Report: Glucose 186 70-99 mg/dL BUN 20 [...] directed; Duration: 90 days Active Dexcom G7 Forming Machine Upkeep Mechanic Helper - as directed 09/26/2024 Active Ferrous Sulfate [...] 28 days oncology 12/07/2023 Active Dexcom G6 Forming Machine Upkeep Mechanic Helper - as directed 02/12/2024 Active Protonix 40 [...] 10/20/2024 Active Melatonin Active Compazine Active Nystatin 759944 UNIT/ML swish and swallo w 5mL Mouth/Throat [...] Signs Temperature 98.7 degrees Fahrenheit 12/16/19 25 Heart Rate 106 /min 12/15/2024 Blood pressure systolic 132 mm Hg 12/16/19 25 Blood pressure diastolic 88 mm Hg 025 Height 67 in 12/15/2024 Respiratory Rate 18 /min 12/15/2024 Oximetry 97 % 12/15/2024 Encounters Encounter Location Date Provider Diagnosis [facility] [address] [place] [address] 12/15/2024 Yamilet Coleman Malignant neoplasm o f [...] heath, 02/27/2025 10:30:00 AM, [address], [place], [address], Progress Notes * Teresa URBINADOB: [birth year] (64 yo F)Acc No.[id number]:12/15/2024 Progress Notes Patient: Isis REYTeresa Provider: Carolyn Coleman :1960 A ge:64 Y S ex:Female Date:12/15/2024 Address:[address] [place] [address] [place], [place], [id number] Subjective: * Chief Complaints: * F /U [...] pallative care but would benefit [facility] - Adjustments to metoprolol [...] Dey next week Disposition: - Referred to [facility] for home assistance - Encouraged to contact [...] as needed Orally every 8 hours Nystatin 366546 UNIT/ML Suspension swish and swallow 5mL Mouth/Throat [...] tablet Orally Once a day Dexcom G6 Forming Machine Upkeep Mechanic Helper - Device as directed Benzonatate 100 MG [...] tablet Orally once a day Dexcom G7 Forming Machine Upkeep Mechanic Helper - Device as directed Dexcom G7 Sensor [...] needed Orally every 8 hours Taking Nystatin 018644 UNIT/ML Suspension swish and swallow 5mL Mouth/Throat [...] Orally Once a day Taking Dexcom G6 Forming Machine Upkeep Mechanic Helper - Device as directed Taking Benzonatate 100 [...] Orally once a day Taking Dexcom G7 Forming Machine Upkeep Mechanic Helper - Device as directed Taking Dexcom G7 [...] - Strip as directed In Vitro daily Etu-XjizctLkgminjelfq-PYWN 37.5-25 MG Tablet 1 tablet in the [...] Date: 12/15/2024 Generated for Chato gonzalez/Nica/Edwardo on: 01/04/2025 11:51 AM EDT History and Physical Notes * HPI [...] Dey next week Disposition: - Referred to [facility] for home assistance - Encouraged to contact [...]
--- OUTSIDE RECORDS SUMMARY | 2024-12-15 20:36 | XMS_ITS | Encounter Summary ---
Author Organization Healthcare Address [address] [place] [address] Care Team Providers Care Cognos Analyst Name Role Phone Laurie Gutierrez MD Primary Care Provider [phone] Joshua Martínez MD Unavailable Sabine Morales LPN Unavailable Unavailable Reason for Visit * Reason Comments Shortness of Breath * Auth/Cert (Routine) Specialty Diagnoses / Procedures Referred By Contac t Referred To Contact Diagnoses Dyspnea History of lung cancer Atrial fibrillation with RVR (CMS/HCC) Incisional infection Multiple subsegmental pulmonary emboli without acute cor pulmonale (CMS/HCC) Desi Pop MD [address] [place] [address] Phone: tel: fax: [facility] [address] [place] [address] Phone: tel: Referral ID Status Reason Start Date Expiration Date Visits Re quested Visits Authorized [id number] 1 1 Encounter Details Date Type Department Care Team (Latest Contact Info) Description 12/15/2024 8:36 PM EDT - 12/22/2024 3:43 PM EDT Hospital Encounter [facility] [address] [place] [address] Ailyn Cabrera MD [address] [place] [address] Desi Pop MD [address] [place] [address] Lisa Lloyd DO [address] [place] [address] Yosi Richmond MD [address] [place] [address] Incisional infection (Primary Dx); Multiple subsegmental pulmonary emboli without acute cor pulmonale (CMS/HCC); Atrial fibrillation with RVR (CMS/HCC); History of lung cancer Discharge Disposition: Home or Self Care Social [...] living in a residential (including now)? No 12/16/2024 CAGE ASSESSMENT Answer [...] t laurie in the morning ([employer]) to steady your nerves or to get rid of a hangover? 0 12/02/2024 CAGE Questionnaire Score 0 025 Utilities Answer Date Recorded In the past 12 months has th [employer] electric, gas, oil, or water company threatened [...] Sign Reading Time Taken Comments Blood Pressure 134/75 12/22/2024 12:11 PM EDT Pulse 61 12/22/2024 12:11 PM EDT Temperature 37.2 C (98.9 F) 12/22/2024 12:11 PM EDT Respiratory Rate 16 12/22/2024 12:11 PM EDT Oxygen Saturation 99% 12/22/2024 12:11 PM EDT Inhaled Oxygen Concentration - - Weight 112 kg (247 lb 9.2 oz) 12/22/2024 6:00 AM EDT Height 170.2 cm (5' 7.01 ) 12/17/2024 12:00 AM E DT Body Mass Index 38.77 12/17/2024 12:00 AM EDT documented in this encounter Functional Status * Calculated C-SSRS Risk Score (Lifetime/Recent) Answer Date of Assessment Author No Risk Indicated 12/22/2024 8:00 AM EDT Quentin Montoya RN * Question Answer Date of Assessment Author 1. Wish to be (Past 1 Month) No 025 8:00 AM EDT Quentin Montoya RN 2. Non-Specific Active Suici radha Thoughts (Past 1 Month) No 12/22/2024 8:00 AM EDT Dirk Montoya RN 6. Suicidal Behavior (Lifetime) No 5 8:00 AM EDT Quentin Montoya RN documented as of this encounter Medications [...] tablet Take 1 tablet by mouth daily. cefepime (Maxipime) 1 g injectionIndication s:Incisional infection Infuse 6 gm continuously every 24 hours. Mix per institutional policy. 1 each 5 01/27/20 25 cetirizine (ZyrTEC) 10 MG tablet Take 1 tablet by mouth daily. dilTIAZem CD (Cardizem CD) 120 MG 24 hr capsule Take 1 capsule by mouth nightly. 30 capsule 1 5 ferrous sulfate 325 (65 Fe) MG [...] mouth 3 times a day. 90 tablet 1 5 01/22/20 25 montelukast (Singulair) 10 MG tablet Take 1 tablet by mouth nightly. NovoLOG FLEXPEN 100 UNIT/ML injection pen Sliding scale three times a day with corrections and meals; BS 150-199=2units; BS 200-249=4units; BS 250-229=6units; 300-349=8 units; 350-399=10 units; anything greater than 399=12units max of 36units daily nystatin (Mycostatin) 589358 UNIT/GM powder Apply on bottom 2 times [...] controlled-release Take 1 tablet by mouth Daily. enoxaparin (Lovenox) 100 MG/ML solution prefilled syringe Inject 1 mL under the skin 2 times a day for 9 days. 17 each 5 01/04/20 25 levETIRAcetam (Keppra) 1000 MG tablet Take 1 tablet by mouth 2 times a day. 60 tablet 5 5 08/19/20 25 magnesium oxide (Mag-Ox) 400 MG tablet Take 1 tablet by mouth 2 times a day. Hold for diarrhea 60 tablet 1 5 01/03/20 documented as of this encounter Miscellaneous Notes * Nursing Note - Quentin Montoya RN - 12/22/2024 3:36 PM EDT Patient is alert and oriented with stable vital signs. AVS and discharge instructions provided, patient verbalized understanding. Went home accompanied by family members. * Discharge Summary - Yosi Richmond MD - 12/22/2024 1:28 PM EDT Hospitalization Admit Date/Time: 12/15/2024 8:36 PM Admitting Attending: Desi Pop Discharge Date: 12/22/24 Discharge Attending Physician: Yosi Richmond MD PCP name and Address: Laurie Gutierrez MD [address] [place] [id number] Referring provider name and address: No referring provider defined for this encounter. 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 She had been off of her outpatient anticoagulation recently In light of SDH. She underwent washout with NSGY on 12/16 and is being followed by ID. She has intermittently required blood transfusion and remains on heparin drip which was restarted on 12/18 per neurosurgery. I personally discussed with neurosurgery who recommends AC with LMWH for 2 weeks then restarting eliquis on 12/30. She had a PICC line placed and ID has recommended antibiotics intravenously until 12/30. For intermittent rapid AFIB we have increased metoprolol and added low dose Cardizem ER. Fortunately she is feeling well and eager for discharge. She medically optimized but remains a high risk for readmission given her medical complexity Surgeries and Procedures Procedures performed in this encounter Procedures Case Request Operating Room: IRRIGATION AND DEBRIDEMENT, WOUND IRRIGATION AND DEBRIDEMENT, WOUND (Left) Medication List PAUSE taking these medications rivaroxaban 20 MG tablet Wait to take this until your doctor or other care provider tells you to start again. Restart on 12/31 after stopping Lovenox Commonly known as: Xarelto Take 1 tablet by mouth 1 time each day with dinner. Take with food. .. acetaminophen 325 MG tablet Commonly known [...] Breztri Aerosphere 160-9-4.8 MCG/ACT aerosol Generic drug: Wewlkow-Yuvxsxfnmlt-Ihlgbvwdnq Inhale 2 puffs 2 (two) times a day. Calcium Carb-Cholecalciferol 600-10 MG-MCG tablet Take 1 tablet by mouth daily. cefepime 1 g injection Commonly known as: Maxipime Infuse 6 gm continuously every 24 hours. Mix per institutional policy. cetirizine 10 MG tablet Commonly known as: ZyrTEC Take 1 tablet by mouth daily. Cyanocobalamin ER 1000 MCG tablet controlled-release Take 1 tablet by mouth Daily. dilTIAZem CD 120 MG 24 hr capsule Commonly known as: Cardizem CD Take 1 capsule by mouth nightly. enoxaparin 100 MG/ML solution prefilled syringe Commonly known as: Lovenox Inject 1 mL under the skin 2 times a day for 9 days. ferrous sulfate 325 (65 Fe) MG tablet [...] mouth 3 times a day as needed. Lantus SoloStar 100 UNIT/ML injection pen Generic drug: insulin glargine Inject 25 Units under the skin nightly. levETIRAcetam 1000 MG tablet Commonly known as: Keppra Take 1 tablet by mouth 2 times a day. magnesium oxide 400 MG tablet Commonly known as: Mag-Ox Take 1 tablet by mouth 2 times a day. Hold for diarrhea metFORMIN 1000 MG tablet Commonly known as: Glucophage Take 1 tablet by mouth 2 times a day with meals. metoprolol tartrate 50 MG tablet Commonly known as: Lopressor Take 1 tablet by mouth 3 times a day. montelukast 10 MG tablet Commonly known as: Singulair Take 1 tablet by mouth nightly. NovoLOG FLEXPEN 100 UNIT/ML injection pen Generic drug: insulin aspart Sliding scale three times a day with corrections and meals; BS 150-199=2units; BS 200-249=4units; BS 250-229=6units; 300-349=8 units; 350-399=10 units; anything greater than 399=12units max of 36units daily nystatin 675207 UNIT/GM powder Commonly known as: Mycostatin Apply [...] Your Medications These medications were sent to [facility] -[place], [place] - [address], [facility] [address] cefepime 1 g injection These medications were sent to [facility] - [place], [place] - [address] , [facility] [id number] dilTIAZem CD 120 MG 24 hr capsule enoxaparin 100 MG/ML solution prefilled syringe metoprolol tartrate 50 MG tablet Discharge Diagnosis: Acute bilateral segmental and subsegmental pulmoary emboli Acute on chronic hypoxic respiratory failure 2/2 above and with concern for pneumonia Recurrent small cell lung cancer with resected oligmetastasis 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 concerning for pneumonia vs local recurrence of SCLC Hypokalemia Hypomagnesemia Acute on chronic anemia 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 s/p craniotomy and WBRT Afib w RVR, RVR resolved -intermittent Hx of Acute Kidney Injury (Cr improving) Seizure Type II diabetes with hyperglycemia Normocytic Normochromic Anemia/Anemia of Chronic Disease HLD COPD GERD Chronic hypomagnesemia Anxiety/Depression Neuropathy/Chronic Pain Obesity Outpatient Follow-Up Future Appointments Date Time Provider Department Center 01/03/2025 9:00 AM [facility] Pedro 01/03/2025 9:40 AM Satnam Colvin MD [facility] [place] 01/03/2025 11:00 AM [facility] TREATMENT [id number] [place] 01/04/2025 2:30 PM [facility] INF[facility]ION TREATMENT [id number] [place] 01/05/2025 1:00 PM Lia Barnes APRN [facility] [place] 01/05/2025 2:30 PM [facility] 2 INFUSION TREATMENT [id number] [place] 01/19/2025 9:20 AM [facility] MR 2 MRIGS [facility] 01/19/2025 10:45 AM Abhilash Bangura MD [facility] 01/26/2025 4:30 PM Lia Barnes APRN [id number] [place] 03/08/2025 1:00 PM Teresita Oconnell MD [facility] Pertinent Physical Exam At Time of Discharge Physical Exam Gen: Alert and Oriented x 3, NAD, insightful HEENT: Oral mucosa moist, craniotomy site clean/alejandro intact-stable CVS: S1S2, RRR, No edema, PICC site clean Pulm: CTA, No wheezes, No rhonchi ABS: Soft, NT MS: Normal ROM, No swelling Skin: No rash, normal turgor, atrophic, right arm ecchymoses Neuro: No focal Deficits, No sensory deficits, minimal right arm extension tremor Psych: Normal Mood and Affect Discharge Disposition/Condition Disposition: Home Condition: Stable (s/sx potential problems absent or manageable) I spent >30 minutes of patient care and instruction time in preparation for this discharge. * Progress Notes - Vonnie Gutierrez RN - 12/22/2024 11:19 AM EDT Case Management Discharge Note Teresa Rivera 64 y.o. female CSN: [id number] Admission: 12/15/2024 8:36 PM Primary Problem: Dyspnea Patient medically ready for discharge. Patient to transfer home with family transport. Patient to go home with IV abx until 01/26/25. Patient receiving abx through [facility]. No home health able to be secured, so patient will get PICC line dressing and lab draws at [facility] office ([phone]) per patient preference. Patient to follow up with Neurosurgery, ID and oncology outpatient. Primary Channel Development Manager: Primary Caregiver: Self Assistance Available at Discharge: Availability of Care Givers (#Hours): 24 hours Family/Channel Development Manager(s) Willingness Assessed to care for patient at home: Yes Family/Channel Development Manager(s) Readiness Assessed to care for patient at home: Yes Housing Circumstances-Z Codes: Housing Circumstances (select all that apply): Low Income (101-300% Federal Poverty Guidlines) - Z596 Patient Referred to Financial or Community Resources: None Discharge Facility/Level of Care Needs: Discharge Facility/Level of Care Needs: 1-Home or Self Care Patient's Choice of Community Agency(s): Patient's Choice of Community Agency(s): [facility] Patient/Family Anticipated Services at Transition: Patient/Family Anticipated Services at Transition: outpatient care DME/Equipment Needed after Discharge: Equipment Currently Used at Home: commode chair, walker, rolling, wheelchair, manual, oxygen ([employer]) Equipment Needed After Discharge: none Readmission Within the Last 30 Days: Yes Medicare Documentation: Medicare Second Notice?: No (medicaid insurance) Follow-up: [facility] [address] [place] [id number] Go on 12/26/2024 Go here for PICC dressing change and lab draws. Every Tuesday 12/26, 01/02, 01/09, 01/16, and 01/23 All follow up provided in AVS. Discharge Transportation: Transportation Anticipated: family or friend will provide Transportation Home at Discharge: Family/Friend will Provide Has discharge transport been arranged?: No Follow Up Transport: Transportation Needed to Follow up Appoinments: Family/Friend will Provide Additional Comments: No home health able to be secured. IV PICC dressing and lab draws set up with [facility] office. Vonnie Gutierrez RN * Care Plan - Quentin Montoya RN - 12/22/2024 8:00 AM EDT Problem: Adult Inpatient Plan of Care Goal: Plan of Care Review Outcome: Ongoing, Progressing Flowsheets (Taken 12/22/2024 110) Progress: improving Plan of Care Reviewed With: patient Goal: Patient-Specific Goal (Individualized) Outcome: Ongoing, Progressing Flowsheets (Taken 12/22/2024 110) Patient/Family-Specific Goals (Include Timeframe): Patient will remain injury/fall free during the shift. Individualized Care Needs: Safety Anxieties, Fears or Concerns: None Goal: Absence of Hospital-Acquired Illness or Injury Outcome: Ongoing, Progressing Intervention: Identify and Manage Fall Risk Flowsheets (Taken 12/22/2024 110) Safety Promotion/Fall Prevention: activity supervised assistive device/personal items within reach clutter-free environment maintained fall prevention program maintained lighting adjusted mobility aid in reach nonskid shoes/slippers when out of bed room organization consistent safety round/check completed Intervention: Prevent Skin Injury Flowsheets (Taken 12/22/2024 110) Body Position: right weight shifting Skin Protection: incontinence pads utilized pulse oximeter probe site changed drying agents applied Intervention: Prevent and Manage VTE (Venous Thromboembolism) Risk Flowsheets (Taken 12/22/2024 110) VTE Prevention/Management: education provided bilateral lower extremity Intervention: Prevent Infection Flowsheets (Taken 12/22/2024 110) Infection Prevention: environmental surveillance performed hand hygiene promoted personal protective equipment utilized rest/sleep promoted Goal: Optimal Comfort and Wellbeing Outcome: Ongoing, Progressing Intervention: Monitor Pain and Promote Comfort Flowsheets (Taken 12/22/2024 110) Pain Management Interventions: breathing exercises ambulation/increased activity diversional activity provided emotional support quiet environment facilitated rest Intervention: Provide Person-Centered Care Flowsheets (Taken 12/22/20241105) Trust Relationship/Rapport: care explained choices provided emotional support provided empathic listening provided questions answered questions encouraged reassurance provided thoughts/feelings acknowledged Problem: Fall Injury Risk Goal: Absence of Fall and Fall-Related Injury Outcome: Ongoing, Progressing Intervention: Identify and Manage Contributors Flowsheets (Taken 12/22/20241105) Medication Review/Management: medications reviewed Self-Care Promotion: BADL personal objects within reach meal set-up provided Intervention: Promote Injury-Free Environment Flowsheets (Taken 12/22/20241105) Safety Promotion/Fall Prevention: activity supervised assistive device/personal items within reach clutter-free environment maintained fall prevention program maintained lighting adjusted mobility aid in reach nonskid shoes/slippers when out of bed room organization consistent safety round/check completed Problem: Wound Goal: Optimal Coping Outcome: Ongoing, Progressing Intervention: Support Patient and Family Response Flowsheets (Taken 12/22/20241105) Supportive Measures: active listening utilized decision-making supported goal-setting facilitated mindfulness techniques promoted positive reinforcement provided self-care encouraged relaxation techniques promoted Family/Support System Care: family care conference arranged involvement promoted presence promoted self-care encouraged support provided Goal: Optimal Functional Ability Outcome: Ongoing, Progressing Intervention: Optimize Functional Ability Flowsheets (Taken 12/22/20241105) Activity Management: activity adjusted per tolerance activity encouraged sitting, edge of bed Activity Assistance Provided: assistance, 1 person Goal: Absence of Infection Signs and Symptoms Outcome: Ongoing, Progressing Intervention: Prevent or Manage Infection Flowsheets (Taken 12/22/2024 110) Infection Management: aseptic technique maintained Fever Reduction/Comfort Measures: fluid intake increased humidification temperature decreased lightweight bedding Isolation Precautions: precautions maintained contact Goal: Improved Oral Intake Outcome: Ongoing, Progressing Intervention: Promote and Optimize Oral Intake Flowsheets (Taken 12/22/20241105) Oral Nutrition Promotion: rest periods promoted Nutrition Interventions: diet adjusted Goal: Optimal Pain Control and Function Outcome: Ongoing, Progressing Intervention: Prevent or Manage Pain Flowsheets (Taken 12/22/2024 110) Pain Management Interventions: breathing exercises ambulation/increased activity diversional activity provided emotional support quiet environment facilitated rest Sleep/Rest Enhancement: awakenings minimized consistent schedule promoted natural light exposure provided reading promoted relaxation techniques promoted Goal: Skin Health and Integrity Outcome: Ongoing, Progressing Intervention: Optimize Skin Protection Flowsheets (Taken 12/22/20241105) Activity Management: activity adjusted per tolerance activity encouraged sitting, edge of bed Pressure Reduction Techniques: heels elevated off bed pressure points protected rest period provided between sit times positioned off wounds Skin Protection: heel offloading device utilized incontinence pads utilized pressure points protected protective dressing applied Head of Bed (HOB) Positioning: HOB at 30-45 degrees Goal: Optimal Wound Healing Outcome: Ongoing, Progressing Intervention: Promote Wound Healing Flowsheets (Taken 12/22/2024 1106) Sleep/Rest Enhancement: awakenings minimized consistent schedule promoted natural light exposure provided reading promoted relaxation techniques promoted Problem: Infection Goal: Absence of Infection Signs and Symptoms Outcome: Ongoing, Progressing Intervention: Prevent or Manage Infection Flowsheets (Taken 12/22/2024 110) Infection Management: aseptic technique maintained Fever Reduction/Comfort Measures: fluid intake increased humidification temperature decreased lightweight bedding Isolation Precautions: precautions maintained contact Problem: Diabetes Goal: Optimal Coping Outcome: Ongoing, Progressing Intervention: Support Wellbeing and Self-Management Success Flowsheets (Taken 12/22/20241105) Supportive Measures: active listening utilized decision-making supported goal-setting facilitated mindfulness techniques promoted positive reinforcement provided self-care encouraged relaxation techniques promoted Family/Support System Care: family care conference arranged involvement promoted presence promoted self-care encouraged support provided Goal: Optimal Functional Ability Outcome: Ongoing, Progressing Intervention: Optimize Functional Ability Flowsheets (Taken 12/22/2024 110) Activity Management: activity adjusted per tolerance activity encouraged sitting, edge of bed Activity Assistance Provided: assistance, 1 person Self-Care Promotion: BADL personal objects within reach meal set-up provided Problem: Pneumonia Goal: Fluid Balance Outcome: Ongoing, Progressing Intervention: Monitor and Manage Fluid Balance Flowsheets (Taken 12/22/2024 110) Fluid/Electrolyte Management: electrolyte supplement adjusted fluids provided fluids adjusted Goal: Absence of Infection Signs and Symptoms Outcome: Ongoing, Progressing Intervention: Prevent Infection Progression Flowsheets (Taken 12/22/2024 110) Infection Management: aseptic technique maintained Fever Reduction/Comfort Measures: fluid intake increased humidification temperature decreased lightweight bedding Isolation Precautions: precautions maintained contact Goal: Effective Oxygenation and Ventilation Outcome: Ongoing, Progressing Intervention: Promote Airway Secretion Clearance Flowsheets (Taken 12/22/20241105) Activity Management: activity adjusted per tolerance activity encouraged sitting, edge of bed Breathing Techniques/Airway Clearance: other (see comments) airway clearance techniques utilized pursed-lip breathing encouraged Cough And Deep Breathing: education provided Intervention: Optimize Oxygenation and Ventilation Flowsheets (Taken 12/22/20241105) Airway/Ventilation Management: calming measures promoted position adjusted Head of Bed (HOB) Positioning: HOB at 30-45 degrees * Care Plan - Quentin Montoya RN - 12/22/2024 8:00 AM EDT Problem: Adult Inpatient Plan of Care Goal: Plan of Care Review Outcome: Ongoing, Progressing Flowsheets (Taken 12/22/20241105) Progress: improving Plan of Care Reviewed With: patient Goal: Patient-Specific Goal (Individualized) Outcome: Ongoing, Progressing Flowsheets (Taken 12/22/20241105) Patient/Family-Specific Goals (Include Timeframe): Patient will remain injury/fall free during the shift. Individualized Care Needs: Safety Anxieties, Fears or Concerns: None Goal: Absence of Hospital-Acquired Illness or Injury Outcome: Ongoing, Progressing Intervention: Identify and Manage Fall Risk Flowsheets (Taken 12/22/20241105) Safety Promotion/Fall Prevention: activity supervised assistive device/personal items within reach clutter-free environment maintained fall prevention program maintained lighting adjusted mobility aid in reach nonskid shoes/slippers when out of bed room organization consistent safety round/check completed Intervention: Prevent Skin Injury Flowsheets (Taken 12/22/20241105) Body Position: right weight shifting Skin Protection: incontinence pads utilized pulse oximeter probe site changed drying agents applied Intervention: Prevent and Manage VTE (Venous Thromboembolism) Risk Flowsheets (Taken 12/22/20241105) VTE Prevention/Management: education provided bilateral lower extremity Intervention: Prevent Infection Flowsheets (Taken 12/22/20241105) Infection Prevention: environmental surveillance performed hand hygiene promoted personal protective equipment utilized rest/sleep promoted Goal: Optimal Comfort and Wellbeing Outcome: Ongoing, Progressing Intervention: Monitor Pain and Promote Comfort Flowsheets (Taken 12/22/20241105) Pain Management Interventions: breathing exercises ambulation/increased activity diversional activity provided emotional support quiet environment facilitated rest Intervention: Provide Person-Centered Care Flowsheets (Taken 12/22/2024 110) Trust Relationship/Rapport: care explained choices provided emotional support provided empathic listening provided questions answered questions encouraged reassurance provided thoughts/feelings acknowledged Problem: Fall Injury Risk Goal: Absence of Fall and Fall-Related Injury Outcome: Ongoing, Progressing Intervention: Identify and Manage Contributors Flowsheets (Taken 12/22/2024 110) Medication Review/Management: medications reviewed Self-Care Promotion: BADL personal objects within reach meal set-up provided Intervention: Promote Injury-Free Environment Flowsheets (Taken 12/22/2024 110) Safety Promotion/Fall Prevention: activity supervised assistive device/personal items within reach clutter-free environment maintained fall prevention program maintained lighting adjusted mobility aid in reach nonskid shoes/slippers when out of bed room organization consistent safety round/check completed Problem: Wound Goal: Optimal Coping Outcome: Ongoing, Progressing Intervention: Support Patient and Family Response Flowsheets (Taken 12/22/20241105) Supportive Measures: active listening utilized decision-making supported goal-setting facilitated mindfulness techniques promoted positive reinforcement provided self-care encouraged relaxation techniques promoted Family/Support System Care: family care conference arranged involvement promoted presence promoted self-care encouraged support provided Goal: Optimal Functional Ability Outcome: Ongoing, Progressing Intervention: Optimize Functional Ability Flowsheets (Taken 12/22/2024 110) Activity Management: activity adjusted per tolerance activity encouraged sitting, edge of bed Activity Assistance Provided: assistance, 1 person Goal: Absence of Infection Signs and Symptoms Outcome: Ongoing, Progressing Intervention: Prevent or Manage Infection Flowsheets (Taken 12/22/2024 110) Infection Management: aseptic technique maintained Fever Reduction/Comfort Measures: fluid intake increased humidification temperature decreased lightweight bedding Isolation Precautions: precautions maintained contact Goal: Improved Oral Intake Outcome: Ongoing, Progressing Intervention: Promote and Optimize Oral Intake Flowsheets (Taken 12/22/2024 110) Oral Nutrition Promotion: rest periods promoted Nutrition Interventions: diet adjusted Goal: Optimal Pain Control and Function Outcome: Ongoing, Progressing Intervention: Prevent or Manage Pain Flowsheets (Taken 12/22/2024 110) Pain Management Interventions: breathing exercises ambulation/increased activity diversional activity provided emotional support quiet environment facilitated rest Sleep/Rest Enhancement: awakenings minimized consistent schedule promoted natural light exposure provided reading promoted relaxation techniques promoted Goal: Skin Health and Integrity Outcome: Ongoing, Progressing Intervention: Optimize Skin Protection Flowsheets (Taken 12/22/2024 110) Activity Management: activity adjusted per tolerance activity encouraged sitting, edge of bed Pressure Reduction Techniques: heels elevated off bed pressure points protected rest period provided between sit times positioned off wounds Skin Protection: heel offloading device utilized incontinence pads utilized pressure points protected protective dressing applied Head of Bed (HOB) Positioning: HOB at 30-45 degrees Goal: Optimal Wound Healing Outcome: Ongoing, Progressing Intervention: Promote Wound Healing Flowsheets (Taken 12/22/2024 110) Sleep/Rest Enhancement: awakenings minimized consistent schedule promoted natural light exposure provided reading promoted relaxation techniques promoted Problem: Infection Goal: Absence of Infection Signs and Symptoms Outcome: Ongoing, Progressing Intervention: Prevent or Manage Infection Flowsheets (Taken 12/22/20241105) Infection Management: aseptic technique maintained Fever Reduction/Comfort Measures: fluid intake increased humidification temperature decreased lightweight bedding Isolation Precautions: precautions maintained contact * Care Plan - Rufus Florez RN - 12/22/2024 3:13 AM EDT Problem: Adult Inpatient Plan of Care Goal: Plan of Care Review Outcome: Ongoing, Progressing Flowsheets (Taken 12/21/2024 022) Progress: improving Outcome Evaluation: Can pt identify signs and symptoms of infection? Plan of Care Reviewed With: patient sibling Note: Yes. Pt able to verbalize s/s of infection and when to seek treatment. Goal: Patient-Specific Goal (Individualized) Outcome: Ongoing, Progressing Flowsheets (Taken 12/21/20242099) Patient/Family-Specific Goals (Include Timeframe): Pt/fam will be able to demonstrate proper administration technique by end of shift. Individualized Care Needs: medication education: lovenox Anxieties, Fears or Concerns: pt expresse desire to be DC home Note: Goal partially met: family member participated in lovenox administration during shift. Goal: Absence of Hospital-Acquired Illness or Injury Outcome: Ongoing, Progressing Intervention: Identify and Manage Fall Risk Flowsheets (Taken 12/21/20242099) Safety Promotion/Fall Prevention: activity supervised assistive device/personal items within reach clutter-free environment maintained fall prevention program maintained lighting adjusted nonskid shoes/slippers when out of bed room organization consistent safety round/check completed toileting scheduled Intervention: Prevent Skin Injury Flowsheets Taken 12/22/2024 0309 Body Position: legs elevated weight shifting Taken 12/21/2024 0229 Skin Protection: protective footwear used pulse oximeter probe site changed transparent dressing maintained incontinence pads utilized Intervention: Prevent and Manage VTE (Venous Thromboembolism) Risk Flowsheets (Taken 12/22/2024 0000) VTE Prevention/Management: medication Intervention: Prevent Infection Flowsheets (Taken 12/20/2024 0251) Infection Prevention: hand hygiene promoted environmental surveillance performed rest/sleep promoted single patient room provided Goal: Optimal Comfort and Wellbeing Outcome: Ongoing, Progressing Intervention: Provide Person-Centered Care Flowsheets (Taken 12/20/2024 0251) Trust Relationship/Rapport: care explained choices provided empathic listening provided Problem: Diabetes Goal: Optimal Coping Outcome: Ongoing, Progressing Intervention: Support Wellbeing and Self-Management Success Flowsheets (Taken 12/22/2024 0309) Supportive Measures: active listening utilized Family/Support System Care: involvement promoted self-care encouraged Goal: Optimal Functional Ability Outcome: Ongoing, Progressing Intervention: Optimize Functional Ability Flowsheets Taken 12/22/2024 0309 Self-Care Promotion: independence encouraged BADL personal objects within reach BADL personal routines maintained Taken 12/21/2024 2100 Activity Management: activity adjusted per tolerance activity encouraged Activity Assistance Provided: assistance, 1 person Goal: Blood Glucose Level Within Target Range Outcome: Ongoing, Progressing Intervention: Optimize Glycemic Control Flowsheets (Taken 12/19/2024 0751 by Daphnie Perez, RN) Hyperglycemia Management: blood glucose monitored Goal: Minimize Hypoglycemia Risk Outcome: Ongoing, Progressing Intervention: Minimize and Manage Hypoglycemia Flowsheets (Taken 12/21/20241916 by Emily Vera, RN) Hypoglycemia Management: blood glucose monitored * Care Plan - Emily Vera, RN - 12/21/2024 7:18 PM EDT Problem: Fall Injury Risk Goal: Absence of Fall and Fall-Related Injury Intervention: Promote Injury-Free Environment Flowsheets (Taken 12/21/2024 1917) Safety Promotion/Fall Prevention: activity supervised assistive device/personal items within reach nonskid shoes/slippers when out of bed Problem: Wound Goal: Optimal Functional Ability Intervention: Optimize Functional Ability Flowsheets Taken 12/21/20241916 by Emily Vera, RN Activity Management: ambulated to bathroom Taken 12/20/20242014 by Rufus Florez RN Activity Assistance Provided: assistance, stand-by Problem: Diabetes Goal: Minimize Hypoglycemia Risk Intervention: Minimize and Manage Hypoglycemia Flowsheets (Taken 12/21/20241916) Hypoglycemia Management: blood glucose monitored * Progress Notes - Vonnie Gutierrez RN - 12/21/2024 2:38 PM EDT Case Management Adult Progress Note Teresa Rivera 64 y.o. female CSN: [id number] Admission: 12/15/2024 8:36 PM Primary Problem: Dyspnea Anticipated Discharge Date: 12/22/24 Has Discharge Plans Changed? No Medicare Second Notice: Not applicable Medically Ready for Discharge: Anticipated Tomorrow Additional Comments Patient admitted for worsening dyspnea and hypoxia noted to desaturate to 80s on her baseline oxygen during activity. Patient on 2L currently; baseline is 2L. Per MD patient is not medically ready for discharge. Patient s/p I&D of wound on 12/16/24 with neurosurgery. Patient transitioned to Lovenox for home. ID consulted. IV abx until 01/26. Standard OPAT. RNCM sent out home health referrals. No home healthavailable to [facility] patient. Patient requesting to come to [facility] for PICC care and lab draws. RNCM set up with [facility] office. PT/OT recommend home with 24 assist and home health PT/OT. Will give outpatient PT/OT script due [facility] home health available. RNCM will continue to monitor for further discharge needs. Vonnie Gutierrez RN * Nahomi Contreras, PharmD - 12/21/2024 2:00 PM EDT Images from the original note were not included. 217 Giving a Subcutaneous (Sub-Q) Enoxaparin (Lovenox) Injection (UK) Giving yourself a subcutaneous injection (also called a sub-Q injection) means inserting medicine into the fat just under your skin. The needle used for a sub- Q injection is very small and doesn?t cause much pain. Many medicines are given in this way. Enoxaparin (Lovenox) is a blood thinner used to prevent or treat blood clots. Why you take enoxaparin (Lovenox): Keep taking this medicine for this time period: Injections can be given once or twice a day. Your doctor has prescribed the amount and times to inject. The prescription will also say how long you need to take it. Amount per injection: Times each day: Preparing a Work Area ? Put any pets in another room. ? Wash your hands for 1 to 2 minutes with liquid soap. ? Clean your area with soap and water. ? Collect the following items: o Your medication o Alcohol wipes or swabs o A puncture-proof plastic container to dispose of your used needles and syringes. Use a sharps container or an empty laundry detergent bottle. ? Wash your hands again. Selecting Your Injection Site ? Inject this medicine in your abdomen at least 2 inches from the belly button. ? Avoid areas that are red, swollen, or bruised. ? Rotate your injection sites. Choose a site that is at least 2 inches away from your last injection site. ? Sit or lie in a comfortable position. Preparing the Medicine ? Check the medicine in the syringe for changes in color, debris, or cloudiness. ? Don?t use the medicine if you notice anything different about the contents of the syringe. ? Call your doctor or pharmacist if you question whether the medicine is safe to use. ? Remove the syringe from its package. Don?t use the syringe if the package is already open or has holes in it. Giving the Injection ? Using an alcohol swab, clean the injection site. Make sure the cleaned area is about 2 inches in diameter. ? Let the injection site dry. ? Take the cap off the needle. ? There is an air bubble in the syringe. If the air bubble is not at the top of the syringe near the plunger, flick the syringe with your other fingers. The air bubble should be injected last to helpprevent skin irritation and make sure you receive all of the medicine. ? Hold the syringe like a pencil. ? With your other hand, place your thumb and forefinger on either side of the clean injection site.Pinch up about an inch of skin. ? Insert the needle at a 90?? angle into the pinched-up skin. Do this quickly; it will hurt less. ? Be sure to insert the needle with the bevel up and insert all the way to the end of the needle. This will help you inject the medicine correctly. ? Keep the skin pinched up. ? To inject the medicine , slowly push the plunger all the way down with your finger. After the Injection ? Pull the needle from the skin and release the pinched-up skin. ? Hold the alcohol swab on the injection site for a few seconds. Don?t rub the injection site. ? If you see blood or clear fluid, press on the injection site with the gauze or cotton ball for 5 to 8 minutes. Don?t rub while pressing. Apply a bandage if you wish. ? Don?t recap the needle. ? Put the empty syringe in the disposal container. Never put loose needles in the trash. ? Call your local waste company or public health department to find out the proper way to dispose of used syringes. * [facility] - Nahomi Purdy, PharmD - 12/21/2024 1:59 PM EDT Images from the original note were not included. [id number] Enoxaparin Injection IMPORTANT WARNING: If you have epidural or spinal anesthesia or a spinal puncture while taking a 'blood thinner' such as enoxaparin, you are at risk for having a blood clot form in or around your spine that could causeyou to become paralyzed. Tell your doctor if you are taking other anticoagulants ('blood thinners')such as warfarin (Coumadin), anagrelide (Agrylin), aspirin or nonsteroidal anti-inflammatory drugs (ibuprofen, naproxen), cilostazol (Pletal), clopidogrel (Plavix), dipyridamole (Persantine), eptifibatide (Integrilin), prasugrel (Effient), sulfinpyrazone (Anturane), ticlopidine (Ticlid), and tirofiban (Aggrastat). If you experience any of the following symptoms, call your doctor immediately: numbness, tingling, leg weakness or paralysis, and loss of control over your bladder or bowels. Talk to your doctor about the risk of taking enoxaparin. Keep all appointments with your doctor. WHY is this medicine prescribed? Enoxaparin is used to prevent blood clots in the leg in patients who are on bedrest or who are having hip replacement, knee replacement, or stomach surgery. It is used in combination with aspirin to prevent complications from angina (chest pain) and heart attacks. It is also used in combination with warfarin to treat blood clots in the leg. Enoxaparin is in a class of medications called low molecular weight heparins. It works by stopping the formation of substances that cause clots. HOW should this medicine be used? Enoxaparin comes as an injection in a syringe to be injected just under the skin (subcutaneously) but not into your muscle. It is usually given twice a day. You will probably begin using the drug while you are in the hospital and then use it for a total of 10 to 14 days. Follow the directions on your prescription label carefully, and ask your doctor or pharmacist to explain any part you do not und erstand. Use enoxaparin exactly as directed. Do not inject more or less of it or inject it more often than prescribed by your doctor. Continue to use enoxaparin even if you feel well. Do not stop taking enoxaparin without talking to your doctor. Your healthcare provider will teach you how to give yourself the shot or arrangements will be made for someone else to give you the shot. Enoxaparin is usually injected in the stomach area. You must use a different area of the stomach each time you give the shot. If you have questions about where to give the shot, ask your healthcare provider. Each syringe has enough drug in it for one shot. Do not use the syringe and needle more than one time. Your doctor, pharmacist, or health care provider will tell you how to dispose of used needles and syringes to avoid accidental injury. Keep syringes and needles out of reach of children. To inject enoxaparin, follow these instructions: ? Wash your hands and the area of skin where you will give the shot. ? Look at the syringe to be sure the drug is clear and colorless or pale yellow. ? Take the cap off the needle. Do not push any air or drug out of the syringe before giving the shot unless your healthcare provider tells you to. ? Lie down and pinch a fold of skin between your finger and thumb. Push the entire needle into the skin and then press down on the syringe plunger to inject the drug. Hold onto the skin the entire time you give the shot. Do not rub the site after you give the shot. Are there OTHER USES for this medicine? This medication may be prescribed for other uses; ask your doctor or pharmacist for more information. What SPECIAL PRECAUTIONS should I follow? Before taking enoxaparin, ? tell your doctor and pharmacist if you are allergic to enoxaparin, heparin, any other drugs, or pork products. ? tell your doctor and pharmacist what prescription and nonprescription medications, vitamins, nutritional supplements, and herbal products you are taking or plan to take while receiving enoxaparin. Your doctor may need to change the doses of your medications or monitor you carefully for side effects. ? the following nonprescription products may interact with enoxaparin: aspirin and nonsteroidal anti-inflammatory drugs (NSAIDs) such as ibuprofen (Advil, Motrin, others) and naproxen (Aleve, Naprosyn, others). Be sure to let your doctor and pharmacist know that you are taking these medications before you start receiving enoxaparin. Do not start any of these medications while receiving enoxaparinwithout discussing with your healthcare provider. ? tell your doctor if you have an artificial heart valve and if you have or have ever had kidney disease, an infection in your heart, a stroke, a bleeding disorder, ulcers, or a low platelet count. ? tell your doctor if you are , plan to become , or are breast- feeding. If you become while taking enoxaparin, call your doctor. ? if you are having surgery, including dental surgery, tell the doctor or dentist that you are taking enoxaparin. What should I do IF I FORGET to take a dose? Inject the missed dose as soon as you remember it. However, if it is almost time for the next dose,skip the missed dose and continue your regular dosing schedule. Do not inject a double dose to makeup for a missed one. What SIDE EFFECTS can this medicine cause? If you experience any of the following symptoms or those listed in the IMPORTANT WARNING section, call your doctor immediately: ? unusual bleeding or bruising ? black or bloody stools ? blood in urine ? swollen ankles and/or feet If you experience a serious side effect, you or your doctor may send a report to the Food and Drug Administration's (FDA) MedWatch Adverse Event Reporting program online (https://www.fda.gov/Safety/MedWatch) or by phone ( ). What should I know about STORAGE and DISPOSAL of this medication? Keep this medication out of reach of children. Store the syringes at room temperature and away fromexcess heat and moisture (not in the bathroom). Do not use the syringe if it leaks or if the fluid is dark or contains particles. Dispose of unneeded medications in a way so that pets, children, and other people cannot take them.Do not flush this medication down the toilet. Use a medicine take-back program. Talk to your pharmacist about take-back programs in your community. Visit the FDA's Safe Disposal of Medicines website h ttps://goo.gl/c4Rm4p for more information. Keep all medication out of sight and reach of children as many containers are not child-resistant. Always lock safety caps. Place the medication in a safe location - one that is up and away and out of their sight and reach. https://www.upandaway.org What should I do in case of OVERDOSE? In case of overdose, call the poison control helpline at . Information is also available online at https://www.poisonhelp.org/help. If the victim has collapsed, had a seizure, has trouble breathing, or can't be awakened, immediately call emergency services at 911. What OTHER INFORMATION should I know? Keep all appointments with your doctor and the laboratory. Your doctor will order certain lab teststo monitor your enoxaparin therapy. Enoxaparin prevents blood from clotting so it may take longer than usual for you to stop bleeding if you are cut or injured. Avoid activities that have a high risk of causing injury. Call your doctorif bleeding is unusual. Do not let anyone else use your medication. Your prescription is probably not refillable. Keep a written list of all of the prescription and nonprescription (kdne-iem-bsjiamm) medicines, vitamins, minerals, and dietary supplements you are taking. Bring this list with you each time you visit a doctor or if you are admitted to the hospital. You should carry the list with you in case of mary anne rgencies. Brand Name(s): ? Lovenox?? also available generically This report on medications is for your information only, and is not considered individual patient advice. Because of the changing nature of drug information, please consult your physician or pharmacist about specific clinical use. The [employer] represents that the information provided hereunder was formulated with a reasonable standard of care, and in conformity with professional standards in the field. The [employer] makes no representations or warranties, express or implied, including, but not limited to, any implied warranty of merchantability and/or fitness for a particular purpose, with respect to such information and specifically disclaims all such warranties. Users are advised that decisions regarding drug therapy are complex medical decisions requiring the independent, informed decision of an appropriate health managed care provider, and the information is provided for informational purposes only. The entire monograph for a drug should be reviewed for a thorough understanding of the drug's actions, uses and side effects. The [employer] does not endorse or recommend the use of any drug.The information is not a substitute for medical care. AHFS?? Patient Medication Information?. ?? Copyright, 2023. The [employer]??, [address], [address], [place], [place]. All Rights Reserved. Duplication for commercial use must be authorized by [facility]. Selected Revisions: December 05, 2023. AHFS?? Patient Medication Information?. ?? Copyright, 2024 * Progress Notes - Yosi Richmond MD - 12/21/2024 11:59 AM EDT Subjective Slept well, no headaches Review of Systems Objective Vitals Temp: [36.5 ??C (97.7 ??F)-37.1 ??C (98.7 ??F)] 36.6 ??C (97.9 ??F) Heart Rate: [62-138] 138 Resp: [18-24] 18 BP: (111-146)/(56-87) 117/80 Physical Exam Physical Exam: Gen: Alert and Oriented x 3, NAD HEENT: Oral mucosa moist, craniotomy site clean/alejandro intact-stable CVS: S1S2, RRR, No edema, PICC site clean Pulm: CTA, No wheezes, No rhonchi ABS: Soft, NT MS: Normal ROM, No swelling Skin: No rash, normal turgor, atrophic, right arm ecchymoses Neuro: No focal Deficits, No sensory deficits Psych: Normal Mood and Affect Assessment & Plan Dyspnea Morbid obesity with BMI of 40.0-44.9, adult (CMS/HCC) Small cell lung cancer (CMS/HCC) Anemia COPD (chronic obstructive pulmonary disease) (CMS/HCC) Diabetes mellitus (CMS/HCC) Type 2 diabetes mellitus without complications Pneumonia Pulmonary embolism Incisional infection This is a 64 y/o with 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 She had been off of her outpatient anticoagulation recently In light of SDH. She underwent washout with NSGY on 12/16 and is being followed by ID. She has intermittently required blood transfusion and remains on heparin drip which was restarted on 12/18 per neurosurgery. We personally discussed with neurosurgery today who recommends AC with LMWH for 2 weeks then restarting eliquis on 12/30. 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 Tentative duration of therapy 6 weeks from OR washout (12/16-01/26). Needs weekly CBC with diff, CMP, CRP on the above, with OPAT order placed, has a PICC line in place. -recommend 2 weeks postop 12/30 Hypokalemia Hypomagnesemia Acute on chronic anemia noted- multifactorial, transfused 1 unit prbc on 12/18 and Craniotomy site infection -discussed with nsgy -underwent washout on 12/16 -LMWH- eliquis 12/30 -continue abx, ID following as above Stage III SCLC w/ mets to brain s/p craniotomy and WBRT - Chemo: Carboplatin/Etopside daily, Atezolizumab q.21 days - last chemo: 11/10/24 - Radiation Therapy: 10/24/24-11/07/24, 3,000 cGY - MRI 12/02 : Postsurgical changes related to left parietal craniotomy for resection of an extra-axial metastasis. small amount of intraparenchymal hemorrhage in the perirolandic region along the resection margin. Unchanged abundant dural thickening and enhancement subjacent to the craniotomy site which could reflect a combination of posttreatment changes and reactive changes. A superimposed infectious process could be considered in the appropriate clinical setting. Residual cleft of enhancing tissue along the left falx which may reflect residual or recurrent tumor. CTA Pul 12/15- interval increase in right upper paramediastinal lung mass, now measuring 39 x 24 x 23 mm; -discussed with Dr. Felton personally, not clear if disease in lung is progressing. Oncology follow up outpatient for chemo in 2 weeks Afib w RVR, RVR resolved -intermittent - Follows Cardiology - hx of typical aflutter s/p CTI flutter ablation - home meds: Xarelto on her last admission, hold per NSGY for recent SAH/SH - continue metoprolol increased to 50 mg three times a day- add LA cardizem today Hx of Acute Kidney Injury (Cr improving) - JORGE Noted on last admission; after presenting with Cr of 2.81 with no clear etiology -Estimated Creatinine Clearance: 49.8 mL/min (A) (by C-G formula based on SCr of 1.48 mg/dL (H)). -resolved-off ACEI Restart lasix Seizure - [facility], no refill history on discharge - discussed with pharmacy and have resumed Type II diabetes with hyperglycemia - Continue home insulin regimen with lantus - FSBS AC/HS with correctional insulin - Consistent carb diet HFpEF does not appear in exacerbation - Last echo on 12/08/2024 noted LVEF of 52% - home meds include: lasix, spiralactone, htcz-triamterene, metoprolol dose increased, losartan - Holding home ARB/hydrochlorothiazide/Aldactone -restarted lasix Normocytic Normochromic Anemia/Anemia of Chronic Disease Stable HLD - atorvastatin COPD - July 2023 PFT Moderate hyperinflation suggestive underlying obstructive disease. Nonspecific spirometry. Moderate reduced diffusion capacity DLCO 41%. - Home O2 requirement: 3L - home meds: Breztri, cetirizine, montelukast, - Spiriva plus dulera -DuoNebs q6 PRN -Titrate O2NC to SpO2 88-92% GERD - protonix, tums Chronic hypomagnesemia - Mag oxide Anxiety/Depression - hydroxyzine, fluoxetine Neuropathy/Chronic Pain -gabapentin Chemo induced Nausea and Vomiting - Zofran and Compazine Obesity - BMI 39.02 kg/m2 - complicates all aspects of care Diet - Regular Code status - Full Code DVT prophylaxis LMWH Needs home health arranged prior to dc * Care Plan - Rufus Florez RN - 12/21/2024 2:33 AM EDT Problem: Adult Inpatient Plan of Care Goal: Plan of Care Review Outcome: Ongoing, Progressing Flowsheets (Taken 12/21/2024228) Progress: improving Outcome Evaluation: Can pt identify signs and symptoms of infection? Plan of Care Reviewed With: patient sibling Note: Yes, pt able to verbalize signs and symptoms of infection. Goal: Patient-Specific Goal (Individualized) Outcome: Ongoing, Progressing Flowsheets (Taken 12/20/20242014) Patient/Family-Specific Goals (Include Timeframe): Pt will remain free from falls during shift. Individualized Care Needs: safety Anxieties, Fears or Concerns: none expressed Note: Goal met: pt has remained free from falls so far during the shift. Goal: Absence of Hospital-Acquired Illness or Injury Outcome: Ongoing, Progressing Intervention: Identify and Manage Fall Risk Flowsheets (Taken 12/20/20242014) Safety Promotion/Fall Prevention: activity supervised assistive device/personal items within reach clutter-free environment maintained fall prevention program maintained lighting adjusted nonskid shoes/slippers when out of bed room organization consistent safety round/check completed toileting scheduled Intervention: Prevent Skin Injury Flowsheets (Taken 12/21/2024228) Body Position: neutral body alignment neutral head position weight shifting education provided Skin Protection: protective footwear used pulse oximeter probe site changed transparent dressing maintained incontinence pads utilized Intervention: Prevent and Manage VTE (Venous Thromboembolism) Risk Flowsheets (Taken 12/21/2024 0000) VTE Prevention/Management: medication Intervention: Prevent Infection Flowsheets (Taken 12/20/2024 0251) Infection Prevention: hand hygiene promoted environmental surveillance performed rest/sleep promoted single patient room provided Goal: Optimal Comfort and Wellbeing Outcome: Ongoing, Progressing Intervention: Provide Person-Centered Care Flowsheets (Taken 12/20/2024 0251) Trust Relationship/Rapport: care explained choices provided empathic listening provided Problem: Fall Injury Risk Goal: Absence of Fall and Fall-Related Injury Outcome: Ongoing, Progressing Intervention: Identify and Manage Contributors Flowsheets Taken 12/21/2024228 by Rufus Florez digital marketer Review/Management: medications reviewed Taken 12/20/2024 0725 by Daphnie Perez RN Self-Care Promotion: BADL personal objects within reach BADL personal routines maintained independence encouraged Intervention: Promote Injury-Free Environment Flowsheets (Taken 12/20/20242014) Safety Promotion/Fall Prevention: activity supervised assistive device/personal items within reach clutter-free environment maintained fall prevention program maintained lighting adjusted nonskid shoes/slippers when out of bed room organization consistent safety round/check completed toileting scheduled Problem: VTE (Venous Thromboembolism) Goal: Tissue Perfusion Outcome: Ongoing, Progressing Intervention: Optimize Tissue Perfusion Flowsheets Taken 12/21/2024 0229 Bleeding Precautions: blood pressure closely monitored coagulation study results reviewed foot protection facilitated gentle oral care promoted monitored for signs of bleeding Taken 12/21/2024 0000 VTE Prevention/Management: medication Goal: Optimal Right Ventricular Function Outcome: Ongoing, Progressing Intervention: Optimal Blood Flow Flowsheets (Taken 12/21/2024228) Stabilization Measures: legs elevated * Progress Notes - Félix Duval MD - 12/20/2024 6:17 PM EDT After discussion with Oncology, they have concerns that the patient has had an extended holiday from chemotherapy and should re-start treatment in the next 2-3 weeks. In order to promote appropriate closure of the operative wound, we recommend that the patient not start chemotherapy until a minimumof 2 weeks after surgery. They are otherwise ok to resume after 2 weeks. Félix Duval MD Resident Physician PGY-1 Department of Neurosurgery [facility] Cosigned by Abhilash Bangura MD at 12/21/2024 10:43 AM EDT Associated attestation - Abhilash Bangura MD - 12/21/2024 10:43 AM EDT I saw and evaluated the patient with the resident/fellow. I discussed the case with the resident/fellow and agree with the findings and plan as documented. * Progress Notes - Vonnie Gutierrez RN - 12/20/2024 1:39 PM EDT Case Management Adult Progress Note Teresa Rivera 64 y.o. female CSN: [id number] Admission: 12/15/2024 8:36 PM Primary Problem: Dyspnea Anticipated Discharge Date: TBD Has Discharge Plans Changed? No Medicare Second Notice: Not applicable Medically Ready for Discharge: Anticipated in 2-4 Days Additional Comments Patient admitted for worsening dyspnea and hypoxia noted to desaturate to 80s on her baseline oxygen during activity. Patient on 2L currently; baseline is 2L. Per MD patient is not medically ready for discharge. Patient s/p I&D of wound on 12/16/24 with neurosurgery. Awaiting on plan for transition from heparin gtt. ID consulted. IV abx until 01/26. Standard OPAT. RNCM sent out home health referrals on this date. PT/OT recommend home with 24 assist and home health PT/OT. RNCM will continue to monitor for further discharge needs. Vonnie Gutierrez RN * Progress Notes - Yosi Richmond MD - 12/20/2024 12:05 PM EDT Subjective Eager for discharge plans- feeling stronger Review of Systems Objective Vitals Temp: [36.4 ??C (97.6 ??F)-36.9 ??C (98.4 ??F)] 36.7 ??C (98.1 ??F) Heart Rate: [59-68] 68 Resp: [19-20] 19 BP: (106-144)/(60-82) 106/60 Physical Exam Physical Exam: Gen: Alert and Oriented x 3, NAD HEENT: Oral mucosa moist, craniotomy site clean/alejandro intact CVS: S1S2, RRR, No edema, PICC site clean Pulm: CTA, No wheezes, No rhonchi ABS: Soft, NT MS: Normal ROM, No swelling Skin: No rash, normal turgor, atrophic, right arm ecchymoses Neuro: No focal Deficits, No sensory deficits Psych: Normal Mood and Affect Assessment & Plan Dyspnea Morbid obesity with BMI of 40.0-44.9, adult (CMS/HCC) Small cell lung cancer (CMS/HCC) Anemia COPD (chronic obstructive pulmonary disease) (CMS/HCC) Diabetes mellitus (CMS/HCC) Type 2 diabetes mellitus without complications Pneumonia Pulmonary embolism Incisional infection This is a 64 y/o with 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 She had been off of her outpatient anticoagulation recently In light of SDH. She underwent washout with NSGY on 12/16 and is being followed by ID. She has intermittently required blood transfusion and remains on heparin drip which was restarted on 12/18 per neurosurgery. Ongoing discussion with franchise consultant teams to determine timing of resuming oral anticoagulation as well as when to resume outpatient chemotherapy. PT & OTare consulted. Acute bilateral segmental and subsegmental pulmoary emboli Acute on chronic hypoxic respiratory failure 2/2 above and with concern for pneumonia Recurrent small cell lung cancer with resected oligmetastasis 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 concerning for pneumonia vs local recurrence of SCLC -oncology following, appreciate input -heparin gtt was started on admission then held perioperatively, on 12/18 ok to resume. Remains on heparin pending further input/discussion and neurosurgery -continue abx appreciate ongoing ID recommendations> ID today 12/19 recommending monotherapy with cefepime 2g q8h, ok to discontinue vanc and flagyl. Tentative duration of therapy 6 weeks from OR washout (12/16-01/26). Needs weekly CBC with diff, CMP, CRP on the above, with OPAT order placed, has a PICC line in place. - recommend 2 weeks postop 12/30 Hypokalemia Hypomagnesemia Acute on chronic anemia noted- multifactorial, transfused 1 unit prbc on 12/18 and Craniotomy site infection -neurosugery follow up pending -underwent washout on 12/16 -heparin ok to resume 12/18 per nsgy-transition to eliquis when cleared by nsgy -continue abx, ID following as above Stage III SCLC w/ mets to brain s/p craniotomy and WBRT - Chemo: Carboplatin/Etopside daily, Atezolizumab q.21 days - last chemo: 11/10/24 - Radiation Therapy: 10/24/24-6/23/25, 3,000 cGY - MRI 12/02 : Postsurgical changes related to left parietal craniotomy for resection of an extra-axial metastasis. small amount of intraparenchymal hemorrhage in the perirolandic region along the resection margin. Unchanged abundant dural thickening and enhancement subjacent to the craniotomy site which could reflect a combination of posttreatment changes and reactive changes. A superimposed infectious process could be considered in the appropriate clinical setting. Residual cleft of enhancing tissue along the left falx which may reflect residual or recurrent tumor. CTA Pul 12/15- interval increase in right upper paramediastinal lung mass, now measuring 39 x 24 x 23 mm; -discussed with Dr. Felton personally, not clear if disease in lung is progressing. Oncology follow up outpatient for chemo Afib w RVR, RVR resolved - Follows Cardiology - hx of typical aflutter s/p CTI flutter ablation - home meds: Xarelto on her last admission, hold per NSGY for recent SAH/SH - continue metoprolol increased to 50 mg three times a day; titrate as tolerated Hx of Acute Kidney Injury (Cr improving) - JORGE Noted on last admission; after presenting with Cr of 2.81 with no clear etiology -sCr: 1.48 (H), (Baseline sCr 0.61- 0.91), BUN: 19, eGFR: 39.4, -Estimated Creatinine Clearance: 49.8 mL/min (A) (by C-G formula based on SCr of 1.48 mg/dL (H)). -resolved Seizure - Treated with Keppra inpatient, no refill history on discharge - discussed with pharmacy and have resumed Type II diabetes with hyperglycemia - Continue home insulin regimen with lantus - FSBS AC/HS with correctional insulin - Consistent carb diet HFpEF does not appear in exacerbation - Last echo on 12/08/2024 noted LVEF of 52% - home meds include: lasix, spiralactone, htcz-triamterene, metoprolol dose increased, losartan - Holding home ARB/hydrochlorothiazide/Aldactone -restart lasix Normocytic Normochromic Anemia/Anemia of Chronic Disease HLD - atorvastatin COPD - July 2023 PFT Moderate hyperinflation suggestive underlying obstructive disease. Nonspecific spirometry. Moderate reduced diffusion capacity DLCO 41%. - Home O2 requirement: 3L - home meds: Breztri, cetirizine, montelukast, - Spiriva plus dulera -DuoNebs q6 PRN -Titrate O2NC to SpO2 88-92% GERD - protonix, tums Chronic hypomagnesemia - Mag oxide Anxiety/Depression - hydroxyzine, fluoxetine Neuropathy/Chronic Pain -gabapentin Chemo induced Nausea and Vomiting - Zofran and Compazine Obesity - BMI 39.02 kg/m2 - complicates all aspects of care Diet - Regular Code status - Full Code DVT prophylaxis - heparin drip * Query Clarification Note - Yosi Richmond MD - 12/20/2024 12:04 PM EDT Physician Clarification Please review the following and provide your response below. 12/16/24 Debridement performed for incisional infection and bone flap infection post prior craniectomy Description of debridement: A screwdriver was then used to remove the titanium plates and screws and the bone flap was elevated. Bone flap appeared to be contaminated and was sent for culture as well. There appeared to be purulent material underlying the bone flap outside of the dural substitute graft and this was swabbed. We then irrigated copiously with several L of sterile saline. We then used a curette to debride any additional devitalized tissue and used a 15 blade to trim theedges of the skin until healthy-appearing skin was present. Please provide further specificity regarding the type and depth of debridement performed: Type debridement: [x] Excisional debridement - defined as removal by excision of devitalized tissue, necrosis, or slough [] Non-excisional debridement - defined as removal of devitalized tissue, necrosis, or slough by such methods as: irrigation, brushing, scrubbing, or washing. Depth of debridement: [] Skin [x] Subcutaneous tissue and fascia [] Muscle [] Bone This documentation will become part of the patient's medical record. * Progress Notes - Nahomi Vera PA - 12/20/2024 11:59 AM EDT ID OPAT INTAKE NOTE: Transitions of Care Summary OPAT Category: Standard OPAT, pending nurse navigator evaluation If patient enrolled into Modified OPAT Program list reason (ONLY if no Nurse Navigator assessment required): Not applicable Patient lives out of state: No Referring ID Physician (Fellow/Attending): Manfred Diagnosis: Osteoarticular Infection, non-prosthetic IV Access: Double Lumen PICC Antimicrobial Regimen: Antimicrobials (including doses): Cefepime 6g IV q24h CI Start date: 12/16 Projected End Date: 01/26 Transition to oral therapy: No If yes, antimicrobial (with dose/end dates): Future Imaging: No; Lab Monitoring (weekly, preferably on Mondays unless otherwise specified): CBC w/ differential *CRP for patients with bone/joint infections and endocarditis or endovascular infections Antimicrobial specific labs: Other Cephalosporins: BUN, SrCr Please fax all labs to: Fax #: [phone] Appointments: Lia Barnes ([place]) 01/05 at 1 PM, 01/26 at 4:30 at: [facility]: [address] [place] [address] (Select Option 3 for IV Antibiotic / PICC line related issues) For questions regarding OPAT prior to discharge, reach out to the OPAT team via [employer] Secure Chat (Group: OPAT Referral Team). For all questions regarding OPAT after discharge should be directed to the OPAT Team at (Select Option 3 for IV Antibiotics/PICC Issues) between 8am-5pm. After 5 pm, or during weekends/[place] holidays, please call the paging rock drill operator at to reach the on-call ID fellow. PLEASE NOTIFY THE ID CONSULTING SERVICE OF ANY QUESTIONS REGARDING THESE RECOMMENDATIONS OR WITH ANY ANTIMICROBIAL CHANGES THAT OCCUR AFTER THE DATE/TIME OF THIS OPAT INTAKE NOTE. * Progress Notes - Nahomi Vera PA - 12/20/2024 11:56 AM EDT TRANSPLANT INFECTIOUS DISEASE PROGRESS NOTE 12/20/2024 SUBJECTIVE: Patient is resting comfortably in bedside chair with her sister at bedside. She states overall feeling well, tolerating diet and denies N/V/D or new rashes. She is eager for d/c. REVIEW OF SYSTEMS: 14-point ROS negative except as stated above. MEDICATIONS: Current Medications[1] ALLERGIES: Allergies[2] PHYSICAL EXAM: GEN: well-appearing, well-nourished, in NAD SKIN: Surgical site noted to scalp with alejandro in place, no drainage or significant erythema. DL PICC noted to LUE. Otherwise, warm, well-perfused, no rashes or lesions on exposed skin EYES: sclera anicteric, EOMI, PERRL HENT: NCAT, mmm, neck supple, full ROM CHEST: atraumatic, symmetric chest rise HEART: RRR, normal S1/S2, no m/r/g LUNGS: CTAB, unlabored on 2L NC GI: NTND, BS normal, no organomegaly VASC: no cyanosis, no edema, peripheral pulses 2+ MSK: no obvious deformity NEURO: A&OX3, no focal neurologic deficits PSYCH: appropriate mood and affect VITAL SIGNS: Patient Vitals for the past 24 hrs: BP Temp Temp src Pulse Resp SpO2 Weight 12/20/24 1119 106/60 36.7 ??C (98.1 ??F) -- 68 -- 95 % -- 12/20/24 0744 137/82 36.4 ??C (97.6 ??F) Oral 62 -- 96 % -- 12/20/24 0600 -- -- -- -- -- -- 110 kg (241 lb 10 oz) 12/20/24 0410 -- -- -- -- 19 -- -- 12/20/24 0251 119/73 36.8 ??C (98.3 ??F) -- 62 -- 98 % -- 12/20/24 0014 -- -- -- -- 20 -- -- 12/19/24 2312 (!) 144/82 36.7 ??C (98.1 ??F) Oral 62 -- 96 % -- 12/19/241939 -- -- -- -- 20 -- -- 12/19/24 1914 129/70 36.8 ??C (98.3 ??F) Oral 59 -- 98 % -- 12/19/24 1524 (!) 144/82 36.9 ??C (98.4 ??F) Oral 66 -- 99 % -- 12/19/24 1159 138/80 36.6 ??C (97.8 ??F) Oral 66 -- 97 % -- LABS: Labs in last 18 hours CBC WBC 5.86 Hb 7.3 (L) Plt 166 Hct 23.4 (L) ANC ?? INR ??, PTT ??, Anti-Xa ?? BMP Na 145 Cl 112 (H) BUN 7 (L) Glu 120 (H) K 3.4 (L) Co2 23 Cr 0.90 Ca 8.5 (L) iCa ?? Mg 1.6 (L), Phos 3.3 Lactate ?? LFT AST 17 AlkPhos 67 T Prot 6.0 (L) ALK 6 (L) Bili 0.3 Alb ?? D.Bili ?? Patient records reviewed and pertinent findings outlined below. IMAGING/STUDIES: XR Chest 1 View Result Date: 12/18/2024 Impression: Right upper lung airspace disease. Bibasilar atelectasis and/or airspace disease. 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 CT Angio Pulmonary Embolism Result Date: 12/16/2024 Impression: Bilateral segmental and subsegmental pulmonary emboli with greatest involvement in the right lower lobe. No right heart strain. Increased size of right upper paramediastinal soft tissue lung mass in the region of prior malignancy is highly concerning for disease recurrence. Increased size of right upper paratracheal lymph node raises concern for metastatic involvement. Nodular consolidation within the posterior superior right upper lobe likely relating to postobstructive pneumonia. XR Chest 1 View Result Date: 12/15/2024 Impression: Stable appearance of the chest. No change right upper lobe opacity IR Lumbar Puncture Result Date: 12/13/2024 Impression: Technically successful diagnostic lumbar puncture under fluoroscopic guidance. Echo, Adult Transthoracic Complete Result Date: 12/08/2024 Narrative: Left Ventricle: The left ventricle is normal [...] is no recent study available for direct [id number] comparison. XR Chest 1 View Result Date: 12/03/2024 Impression: Improved right upper lobe opacity. MR Head w and wo IV Contrast Result Date: 12/02/2024 Impression: Restaging of small cell lung cancer. Compared [...] or enlarging intracranial hemorrhage or acute infarction. ANTIMICROBIAL REVIEW: Anti-infectives (From admission, onward) Start Dose/Rate Route Frequency Ordered Stop 12/18/24 1400 cefepime (Maxipime) 2 g in sodium chloride 0.9% 100 mL IVPB (vial adapter required) 2 g 36.7 mL/hr over 3 Hours Intravenous Every 8 hours 12/18/24 1308 MICROBIOLOGY: 12/16 Bone culture (incluidng anerobic, AFB and fungal) PsA 12/16 Intra-operative swab culture (including anerobic, AFB, Fungal) PsA 12/16 Resp culture poor quality 12/16 Urine strep and legionella negative 12/16 Blood culture NGTD 12/15 Resp culture negative 12/15 Covid negative 12/15 Blood culture NGTD 12/01 Resp culture MDR PsA, MURF ASSESSMENT: Teresa Rivera is a 64 y.o. 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 She was recently admitted 11/29/24 - 12/10/24 after a seizure. During that admission, she had a respiratory culture that grew MDR PRODUCT TECHNICIAN pseudomonas. She is now here with concern for postobstructive pneumonia and craniotomy surgical site infection. Blood cultures are NGTD. Patient ultimately had OR washout on 12/16 with NSGY with purulence/signs of infection associated with and below bone flap. Intra-operative cultures (+) PsA. PROBLEM LIST Craniotomy surgical site infection Pneumonia with history of MDR/PRODUCT TECHNICIAN organism Multiple bilateral PE Small cell lung cancer with mets to the brain on chemotherapy History of craniotomy RECOMMENDATIONS: - Would continue cefepime 2g q8h for coverage of PsA -Tentative duration of therapy is 6 weeks from OR washout/LV (12/16 -> 01/26) -Continue at least weekly CBC with diff, BUN/SrCr, CRP on the above -Will follow cultures -OPAT order placed, meets standard - DL PICC in place -ok to retain following the above course for heme/onc -F/U with ID with Lia Barnes ([place]) 01/05 at 1 PM, 01/26 at 4:30 -Ok to initiate chemotherapy from ID perspective when medically cleared from other specialities Thank you for allowing us to participate in this patient's care. ID will sign off, please re-consult if issues arise. Nahomi Vera PA-C Division of Infectious Diseases Available on [employer] Chat History, assessment, and plan discussed with ID attending, Dr. Shearer [1] Current Facility-Administered Medications Medication Dose Route Frequency Provider Last Rate Last Admin acetaminophen (Tylenol) tablet 650 mg 650 mg Oral q6h PRN Lisa Lloyd DO 650 mg at 12/19/24 1022 atorvastatin (Lipitor) tablet 40 mg 40 mg Oral q PM Gordy Purvis N, RIPENING ROOM OPERATOR, DNP 40 mg at 12/19/24 1752 cefepime (Maxipime) 2 g in sodium chloride 0.9% 100 mL IVPB (vial adapter required) 2 g [id number] Lisa Lloyd DO 36.7 mL/hr at 12/20/24 0956 2 g at 12/20/24 0956 cetirizine (ZyrTEC) tablet 10 mg 10 mg Oral Daily KentonuGordy mendoza APRN, DNP 10 mg at 12/20/24 0955 glucose (Glutose) 40 % oral gel 15-30 grams of glucose 15-30 grams of glucose Sublingual q15 min PRN Shaeberaine, Gordy Imelda, RIPENING ROOM OPERATOR, DNP Or dextrose 10 % (D10W) bolus 125 mL 125 mL Intravenous q15 min PRN Stephane, Gordy Segura, RIPENING ROOM OPERATOR, DNP Or dextrose 10 % (D10W) bolus 250 mL 250 mL Intravenous q15 min PRN Gordy Purvis APRN, DNP Or glucagon (human recombinant) injection 1 mg 1 mg Intramuscular q15 min PRN Stephane Gordy N, RIPENING ROOM OPERATOR, DNP diphenhydrAMINE (Benadryl) tablet 25 mg 25 mg Oral q8h PRN Lisa Lloyd DO 25 mg at 12/19/24 1414 FLUoxetine (PROzac) capsule 40 mg 40 mg Oral Daily Lisa Lloyd, DO 40 mg at 12/20/24 0955 gabapentin (Neurontin) capsule 400 mg 400 mg Oral TID Lisa Lloyd, DO 400 mg at 12/20/24 0955 heparin 25,000 units/250 mL (100 unit/mL) infusion - Adult LOW DOSE Protocol 0- 35 Units/kg/hr Intravenous Titrated Lisa Lloyd DO 12.1 mL/hr at 12/20/24 0220 11 Units/kg/hr at 12/20/24 0220 hydrOXYzine HCl (Atarax) tablet 25 mg 25 mg Oral TID PRN Lisa Lloyd DO 25 mg at 12/19/24 2056 insulin glargine-yfgn 100 UNIT/ML injection 5 Units 5 Units Subcutaneous Nightly Gordy Purvis APRN, DNP 5 Units at 12/19/242113 insulin lispro (Admelog) 100 units/mL injection - Correction - Standard Dose 0-5 Units SubcutaneousTID with meals Lisa Lloyd DO insulin lispro (Admelog) injection - Correction - Nighttime Dose 0-3 Units Subcutaneous Twice at night Lisa Lloyd DO ipratropium-albuterol (Duo-Neb) 0.5-2.5 mg/3 mL nebulizer solution 3 mL 3 mL Nebulization q6h PRN Gordy Purvis APRN, [place] levETIRAcetam (Keppra)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 episode in early November 2024 - 11/29: Witnessed seizure in infusion clinic - CT head: similar appearance of small amount of subdural blood beneath L parietal craniotomy flap just left of vertex, similar appearance of adjacent L parafalcine subdural hematoma - Neurology consulted - Seizure precautions - Continue renally dosed Keppra - 12/02/24 MRI of head: small amount of intraparenchymal hemorrhage in the perirolandic region alongthe resection margin. # Gr 3 anemia - No s/s acute blood loss - Continue to monitor with CBC - Transfuse if hgb /< 7.0 Plan 12/20/24: - It's not clear that her disease in her lung is progressing. Rather, the changes in her R lung appear more consistent with pneumonia than lung cancer. - We will hold her next cycle of chemotherapy in light of her debilitation, and recent crani washout procedure. Furthermore, neurosurgery would like us to wait to initiate chemotherapy until at least 2 weeks post-op (~12/30/24) and clinic clearance. - Per infectious disease, okay to resume chemotherapy despite pt being on IV abx until ~01/26/25 - Will ensure outpatient medical oncology follow up is scheduled when appropriate. 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 Recommendations were communicated to the primary service. Please call with additional questions or concerns. 40 minutes was spent on this encounter; [...] with the patient, whom I saw independently. Discussed patient during multidisciplinary rounds with current inpatient medical oncologist. The patient verbalized understanding and agrees with plan. All questions answered to their satisfaction. Encouraged to call should other questions/concerns arise. Summer Eisenberg APRN, DNP Division of Medical Oncology [address] [place] [address], [place] [address] * Care Plan - Daphnie Perez RN - 12/20/2024 7:26 AM EDT Problem: Adult Inpatient Plan of Care Goal: Plan of Care Review Outcome: Ongoing, Progressing Goal: Patient-Specific Goal (Individualized) Outcome: Ongoing, Progressing Goal: Absence of Hospital-Acquired Illness or Injury Outcome: Ongoing, Progressing Intervention: Identify and Manage Fall Risk Flowsheets (Taken 12/20/2024 07) Safety Promotion/Fall Prevention: activity supervised assistive device/personal items within reach clutter-free environment maintained Goal: Optimal Comfort and Wellbeing Outcome: Ongoing, Progressing Problem: Fall Injury Risk Goal: Absence of Fall and Fall-Related Injury Outcome: Ongoing, Progressing Intervention: Identify and Manage Contributors Flowsheets (Taken 12/20/2024 07) Medication Review/Management: medications reviewed Self-Care Promotion: BADL personal objects within reach BADL personal routines maintained independence encouraged SMART GOAL: Pt will use call button when in need of ADL assistance during shift. Problem: Wound Goal: Optimal Coping Outcome: Ongoing, Progressing Goal: Optimal Functional Ability Outcome: Ongoing, Progressing Goal: Absence of Infection Signs and Symptoms Outcome: Ongoing, Progressing Goal: Improved Oral Intake Outcome: Ongoing, Progressing Goal: Optimal Pain Control and Function Outcome: Ongoing, Progressing Goal: Skin Health and Integrity Outcome: Ongoing, Progressing Goal: Optimal Wound Healing Outcome: Ongoing, Progressing Problem: Infection Goal: Absence of Infection Signs and Symptoms Outcome: Ongoing, Progressing Problem: Diabetes Goal: Optimal Coping Outcome: Ongoing, Progressing Goal: Optimal Functional Ability Outcome: Ongoing, Progressing Goal: Blood Glucose Level Within Target Range Outcome: Ongoing, Progressing Goal: Minimize Hypoglycemia Risk Outcome: Ongoing, Progressing Problem: Pneumonia Goal: Fluid Balance Outcome: Ongoing, Progressing Goal: Absence of Infection Signs and Symptoms Outcome: Ongoing, Progressing Goal: Effective Oxygenation and Ventilation Outcome: Ongoing, Progressing Problem: VTE (Venous Thromboembolism) Goal: Tissue Perfusion Outcome: Ongoing, Progressing Goal: Optimal Right Ventricular Function Outcome: Ongoing, Progressing * Care Plan - Rufus Florez RN - 12/20/2024 3:00 AM EDT Problem: Adult Inpatient Plan of Care Goal: Plan of Care Review Outcome: Ongoing, Progressing Flowsheets (Taken 12/20/2024 025) Progress: improving Outcome Evaluation: does pt understand reason for PICC line placement? Plan of Care Reviewed With: patient parent Note: Yes, pt able to verbalize reason for PICC line placement Goal: Patient-Specific Goal (Individualized) Outcome: Ongoing, Progressing Flowsheets (Taken 12/19/20242044) Patient/Family-Specific Goals (Include Timeframe): Pt will remain free from falls during shift Individualized Care Needs: safety Anxieties, Fears or Concerns: none expressed Note: Goal met: pt has not fallen to this point during shift. Goal: Absence of Hospital-Acquired Illness or Injury Outcome: Ongoing, Progressing Intervention: Identify and Manage Fall Risk Flowsheets (Taken 12/19/20242044) Safety Promotion/Fall Prevention: activity supervised assistive device/personal items within reach clutter-free environment maintained fall prevention program maintained lighting adjusted nonskid shoes/slippers when out of bed room organization consistent safety round/check completed toileting scheduled Intervention: Prevent Skin Injury Flowsheets Taken 12/20/2024 0251 Skin Protection: protective footwear used transparent dressing maintained Taken 12/20/2024 0100 Body Position: weight shifting Intervention: Prevent and Manage VTE (Venous Thromboembolism) Risk Flowsheets (Taken 12/19/20242044) VTE Prevention/Management: medication Intervention: Prevent Infection Flowsheets (Taken 12/20/2024 025) Infection Prevention: hand hygiene promoted environmental surveillance performed rest/sleep promoted single patient room provided Goal: Optimal Comfort and Wellbeing Outcome: Ongoing, Progressing Intervention: Provide Person-Centered Care Flowsheets (Taken 12/20/2024250) Trust Relationship/Rapport: care explained choices provided empathic listening provided Problem: Fall Injury Risk Goal: Absence of Fall and Fall-Related Injury Outcome: Ongoing, Progressing Intervention: Identify and Manage Contributors Flowsheets Taken 12/20/2024 025 by Rufus Florez RN Self-Care Promotion: independence encouraged BADL personal objects within reach BADL personal routines maintained Taken 12/19/2024 075 by Daphnie Perez RN Medication Review/Management: medications reviewed Intervention: Promote Injury-Free Environment Flowsheets (Taken 12/19/20242044) Safety Promotion/Fall Prevention: activity supervised assistive device/personal items within reach clutter-free environment maintained fall prevention program maintained lighting adjusted nonskid shoes/slippers when out of bed room organization consistent safety round/check completed toileting scheduled Problem: Pneumonia Goal: Fluid Balance Outcome: Ongoing, Progressing Intervention: Monitor and Manage Fluid Balance Flowsheets (Taken 12/20/2024250) Fluid/Electrolyte Management: fluids adjusted Goal: Absence of Infection Signs and Symptoms Outcome: Ongoing, Progressing Intervention: Prevent Infection Progression Flowsheets Taken 12/20/2024250 by Rufus Florez RN Infection Management: aseptic technique maintained Taken 12/19/20242044 by Rufus Florez RN Isolation Precautions: precautions maintained protective Taken 12/18/2024 1154 by Zoraida Frias Fever Reduction/Comfort Measures: lightweight bedding lightweight clothing Goal: Effective Oxygenation and Ventilation Outcome: Ongoing, Progressing Intervention: Promote Airway Secretion Clearance Flowsheets Taken 12/20/2024250 Breathing Techniques/Airway Clearance: deep/controlled cough encouraged Cough And Deep Breathing: education provided Taken 12/19/20242044 Activity Management: activity adjusted per tolerance activity encouraged Intervention: Optimize Oxygenation and Ventilation Flowsheets Taken 12/20/2024250 Airway/Ventilation Management: position adjusted pulmonary hygiene promoted Taken 12/19/20242044 Head of Bed (HOB) Positioning: HOB at 30-45 degrees * Cynthia Luz RN - 12/19/2024 4:08 PM EDT Images from the original note were not included. [id number] PICC Line Care PICC stands for peripherally inserted central catheter. This is a short-term (temporary) tube that's used instead of a regular I.V. (intravenous) line. Reasons for using a PICC line A PICC line may be used because: ? It reduces the discomfort of putting in a new I.V. every time it's needed. ? Medicine or nutrition needs to be given over a period of weeks or even months. ? A PICC can stay in place longer than an I.V., so it reduces needle sticks. ? It reduces damage to small veins, where an I.V. is normally inserted. This can allow some substances that damage small veins to be infused safely and comfortably. ? A PICC may have more than one channel, so different fluids or medicines can be given at the same time. ? A PICC line allows for home therapy. Your PICC will need some care to keep it clean and working. This care includes: ? Changing the bandage (dressing). ? Flushing the catheter with fluids. ? Changing the cap on the end of the catheter. A nurse or other health care provider will teach you how to do each of these things. If you have any questions, contact your care team. Home care The following are general care guidelines that will help you care for your PICC line at home: ? You can use your arm. But stay away from any activity that causes pain. ? Don't pick at it or pull on the tubing. ? Don?t lift anything heavier than 10 pounds with the arm on the side of the PICC line. ? The PICC line and dressing should not get wet. When you bathe or shower, tape plastic wrap over the site to keep it dry. ? Don't put the PICC site under water. No swimming or hot tubs. If the dressing gets wet, change itright away if you've been trained to do so. If not, contact your care team. ? Always wash your hands with soap and clean, running water before and after touching any part of your PICC. ? Don't allow the tubing to hang freely. Make sure to keep the tubing covered and secured to your arm to prevent the PICC line from being pulled out by accident. ? Don?t use any sharp or pointy objects around the catheter. This includes scissors, pins, knives, and razors. The following tips will help you with dressing changes: ? Change the dressing over the site as directed. This is usually once a week. Change it sooner if the dressing gets wet or soiled. Check the dressing daily. ? You or a family member may be able to do the dressing change at home. Or you may be instructed toreturn to the office or clinic for dressing changes. ? Sterile technique must be used for PICC dressing change. If your dressing is changed at home, be sure you or your family member knows the sterile dressing technique. Contact your health care provider for instructions if you need them. Follow-up care Follow up as advised by your health care provider. When to get medical care Contact your health care provider right away if any of these occur: ? Fever of 100.4??F (38??C) or higher, or as advised by your provider ? Drainage from the PICC site ? Swelling or bulging around the PICC site, or anywhere above the insertion site ? Bleeding from the PICC site ? Skin pulling away from the PICC site ? Redness, warmth, or pus at the PICC site ? Tubing breaks, splits, or leaks ? More exposed tubing (tubing seems longer), or the tubing is pulled out completely ? Medicine or fluids don't drain from the bag into your PICC ? Coughing, wheezing, or shortness of breath ? A racing or irregular heartbeat ? Muscle stiffness or trouble moving the arm Last Reviewed Date: 2024 00:00:00 ?? [id number] [employer]. All rights reserved. This information is not intended as a substitute for professional medical care. Always follow your healthcare professional's instructions. * Zachary Fodr - Cynthia Tilley, RN - 12/19/2024 4:08 PM EDT Images from the original note were not included. [id number] * Cynthia Luz RN - 12/19/2024 4:08 PM EDT Images from the original note were not included. [id number] * Cynthia Luz RN - 12/19/2024 4:08 PM EDT Images from the original note were not included. [id number] Frequently Asked Questions about OPAT - Outpatient Parental Antimicrobial Therapy What is OPAT? Antibiotics are used to treat infections. They are often given either as pill to take by mouth or as a fluid to inject into a vein. Injecting medicines is called IV (intravenous) therapy or parenteral therapy. When IV antibiotic therapy is given at home, it?s called OPAT (Outpatients Parental Antibiotic therapy). To qualify for OPAT, you must: (1) be ready to leave the hospital, and (2) still need antibiotics. The OPAT team will also need to make sure you?ll be safe at home. What types of long-term IV lines are there? Peripherally Inserted Central Catheter (PICC)/Midline Central Venous Catheter (CVC) Port-a-Cath (PORT) After I leave the hospital, who will give me the IV antibiotics and care for my central line? 1. Before you leave the hospital, an OPAT Nurse Navigator will assess you. Then the nurse will teach you or a caregiver how to safely give IV antibiotics and care for the line. 2. You will receive supplies from the infusion company. The company will teach you about the IV antibiotics and delivery system. 3. At least once a week, you will need labs and PICC line care (dressing change). This will be doneby a home health nurse at your house or a medical facility. The skilled nursing case manager/social work professor will setthat up based on your insurance. Your infectious disease provider will check these labs. 4. The OPAT team may call to review your lab results. It?s important to answer your phone or returnthe phone call within 24 hours. How long will my antibiotic treatment last? This will depend on your infection and your infectious disease provider. Is it important to show up for OPAT clinic follow-up appointments? Yes. It is very important. During your appointment, the infectious disease provider will go over your labs and check for responses to the antibiotics. The provider will make sure the PICC line is safe and the antibiotics are working. What if I have questions or concerns about OPAT treatment? ? Call the OPAT team at (Select Option 3 for IV Antibiotics/PICC Issues) between 8 a.m.-5 p.m. ? After 5 p.m. or during weekends/ holidays, call the paging rock drill operator at . Ask for the infectious disease fellow carton making machine operator. Call the clinic if you have any of these: ? Fevers greater than 100.5??F ? An allergic reaction, such as rash ? Nausea, vomiting, or diarrhea ? New or returning redness near the IV line ? Redness, pain, swelling, or pus around the IV line * [facility] - Cynthia Tilley RN - 12/19/2024 4:08 PM EDT Images from the original note were not included. [id number] Flushing Your PICC Line at Home Your peripherally inserted central catheter (PICC) line is used to deliver medicine or feedings. It?s a long, flexible tube (catheter) that goes into your vein, runs into larger veins, and ends up with the tip near where the superior vena cava enters your heart. To care for your PICC line, you willneed to flush it. This means you?ll need to clean it with a solution as directed by your health care provider. This keeps it from getting clogged or blocked. A clogged or blocked PICC line will need to be taken out and replaced. When to flush your PICC line You?ll need to flush your PICC line as often as directed by your health care provider. You may needto flush it after each use. If the PICC line is not in active use, you may need to flush it once a day. Or you may only need to flush it once a week. Talk with your provider about how often you should do this. What you?ll need ? Flushing solution. This is the liquid that you will send through the PICC line. Your health care provider will tell you what kind to use. In most cases, it is saline solution. This is a sterile mixof water and a tiny amount of salt. Your provider will also tell you how much to use. You may also need to flush with a heparin solution after the saline. Heparin is a medicine that thins the blood. It helps prevent blood from clotting in and around the catheter. ? A syringe. This is the device used to give an injection, or shot. A syringe is used to flush yourPICC line with the solution. You will probably use prefilled syringes. ? Alcohol wipes or rubbing alcohol and cotton balls. You?ll use these to clean some of the tools used to flush your line. This helps to prevent germs from going into your PICC line. ? Clean medical gloves. How to flush your PICC line Repeat these steps as often as your health care provider has instructed. Skip steps 2 and 3 if you are using prefilled syringes. Step 1. Wash your hands ? Wash your hands well with soap and clean running water for at least 20 seconds. Scrub them well, including the backs of your hands and between your fingers. ? If you don?t have access to soap and water, use an alcohol-based hand animal handler. The gel should have at least 60% alcohol. Let the hands dry. ? Put on clean medical gloves. ? Only touch your PICC line with clean hands and when wearing clean gloves. This is to protect you from infection and to keep the line free from germs. Step 2. Fill the syringe ? Open a new bottle of the flushing solution. If you?re using a bottle that?s already open, use thealcohol to clean the top of the bottle. ? Remove the cap from the needle or tip of the syringe. Push the plunger of the syringe down all the way. ? Put the needle or tip of the syringe into the flushing solution. ? Pull the syringe plunger out. Stop when you have the right amount of flushing solution in the syringe. Your health care provider will tell you how much to use. Step 3. Remove air from the syringe ? Hold the syringe with the tip pointing up. ? Flick or tap the syringe with your finger. This will cause any large air bubbles to rise into thetip. ? Slowly push on the plunger until a tiny drop of flushing solution comes out of the needle or tip. ? Put the cap back on the needle or tip of the syringe. This will keep it germ- free until you use it. Step 4. Inject the flushing solution ? Scrub the top and sides of the port (end of the catheter) with an alcohol wipe for 15 seconds. Scrub using a twisting motion as if juicing an orange. Let it dry completely. Prevent it from touchinganything while drying. Don't blow on it. Don't reuse the alcohol wipe. Keep the port from touching anything until you connect the syringe. If you accidentally touch the port, clean it again. ? Open the clamp, if there is one. ? Take the cap off the needle or tip of the syringe. Insert the needle or tip into the port. Make sure you know if your PICC has a needleless connector. Ask your health care provider if you aren't sure. ? Push the plunger in slowly and smoothly. Don?t force the plunger. You shouldn?t feel any pressurewhen you push the fluid into the PICC line. If you do, stop and call your provider right away. Step 5. Finish flushing ? If there is a clamp, close it just before the syringe is empty. This stops blood from flowing back into the catheter. ? Remove the needle or tip of the syringe from the port. ? Put the syringe into a special container (sharps container). When to contact your doctor Contact your health care provider right away if you have: ? A fever of 100.4??F (38??C) or higher, or as directed by your provider. ? Chills during or after flushing your line. ? Swelling, redness, drainage, or pain around the PICC site. ? Bleeding from the PICC site. ? Tubing that leaks or is pulling out. ? A feeling of new resistance when flushing the PICC line, or you can't flush it at all. ? Medicine or fluids that don't drain from the bag into your PICC. Last Reviewed Date: 2024 00:00:00 ?? [id number] [employer]. All rights reserved. This information is not intended as a substitute for professional medical care. Always follow your healthcare professional's instructions. * Zachary Ford - Cynthia Tilley RN - 12/19/2024 4:08 PM EDT Images from the original note were not included. [id number] Cefepime Injection WHY is this medicine prescribed? Cefepime injection is used to treat certain infections caused by bacteria including pneumonia, and skin, urinary tract, and kidney infections. Cefepime injection is used in combination with metronidazole (Flagyl) to treat abdominal (stomach area) infections. Cefepime injection is also used to treatpatients who have fever and are at high risk for infection because they have a low number of white blood cells. Cefepime injection is in a class of medications called cephalosporin antibiotics. It works by killing bacteria. Antibiotics such as cefepime injection will not work for colds, flu, or other viral infections. Using antibiotics when they are not needed increases your risk of getting an infection later that resists antibiotic treatment. HOW should this medicine be used? Cefepime injection comes as a powder to be mixed with liquid, or as a premixed product, to be injected intravenously (into a vein) over a period of 30 minutes. Cefepime injection can also be given intramuscularly (into a muscle). It is usually given every 8 or 12 hours for 7 to 10 days. You may receive cefepime injection in a hospital or you may administer the medication at home. If you will be receiving cefepime injection at home, your healthcare provider will show you how to use the medication. Be sure that you understand these directions, and ask your healthcare provider if youhave any questions. You should begin to feel better during the first few days of treatment with cefepime injection. If your symptoms do not improve or get worse, call your doctor. Use cefepime injection until you finish the prescription, even if you feel better. If you stop using cefepime injection too soon or skip doses, your infection may not be completely treated and the bacteria may become resistant to antibiotics. Are there OTHER USES for this medicine? Cefepime injection is also sometimes used to treat endocarditis (infection of the heart lining and valves), meningitis (infection of the membranes covering the brain and spine), and infections in theblood. Talk to your doctor about the risks of using this medication for your condition. This medication may be prescribed for other uses; ask your doctor or pharmacist for more information. What SPECIAL PRECAUTIONS should I follow? Before taking cefepime injection, ? tell your doctor and pharmacist if you are allergic to cefepime; carbapenem antibiotics; other cephalosporin antibiotics such as cefaclor, cefadroxil,cefazolin (Ancef, Kefzol), cefdinir, cefditoren(Spectracef), cefixime (Suprax), cefotaxime (Claforan), cefotetan, cefoxitin (Mefoxin), cefpodoxime, cefprozil, ceftaroline (Teflaro), ceftazidime (Fortaz, Tazicef, in Avycaz), ceftibuten (Cedax), ceftriaxone (Rocephin), cefuroxime (Zinacef), and cephalexin (Keflex); penicillin antibiotics; or any other medications. Also tell your doctor if you are allergic to any of the ingredients in cefepime injection. Ask your pharmacist for a list of the ingredients. ? tell your doctor and pharmacist what prescription and nonprescription medications, vitamins, nutritional supplements, and herbal products you are taking or plan to take while using cefepime injection. Your doctor may need to change the doses of your medications or monitor you carefully for side effects. ? you should know that cefepime injection may decrease the effectiveness of hormonal contraceptives( control pills, patches, rings, and injections). You will need to use another method of contraception to prevent while using cefepime injection. Talk to your doctor about other ways to prevent while you are taking this medication. ? tell your doctor if you have or have ever had gastrointestinal disease (GI; affecting the stomachor intestines), especially colitis (condition that causes swelling in the lining of the colon [large intestine]), or kidney or liver disease. ? tell your doctor if you are , plan to become , or are . If you become while taking cefepime injection, call your doctor. What SPECIAL DIETARY instructions should I follow? Unless your doctor tells you otherwise, continue your normal diet. What should I do IF I FORGET to take a dose? Use the missed dose as soon as you remember it. However, if it is almost time for the next dose, skip the missed dose and continue your regular dosing schedule. Do not use a double dose to make up for a missed one. What SIDE EFFECTS can this medicine cause? Some side effects can be serious. If you experience any of these symptoms, stop taking cefepime injection and call your doctor immediately or get emergency medical treatment: ? watery or bloody stools, stomach cramps, or fever during treatment or for up to two or more months after stopping treatment ? rash ? nausea ? vomiting ? itching ? difficulty swallowing or breathing ? swelling of the throat or tongue ? seizures ? confusion ? hallucinations ? coma ? a return of fever, sore throat, chills, or other signs of infection Cefepime injection may cause other side effects. Call your doctor if you have any unusual problems while taking this medication. If you experience a serious side effect, you or your doctor may send a report to the Food and Drug Administration's (FDA) MedWatch Adverse Event Reporting program online (https://www.fda.gov/Safety/MedWatch) or by phone ( ). What should I know about STORAGE and DISPOSAL of this medication? Your healthcare provider will tell you how to store your medication. Store your medication only as directed. Make sure you understand how to store your medication properly. Dispose of unneeded medications in a way so that pets, children, and other people cannot take them.Do not flush this medication down the toilet. Use a medicine take-back program. Talk to your pharmacist about take-back programs in your community. Visit the FDA's Safe Disposal of Medicines website h ttps://goo.gl/c4Rm4p for more information. What should I do in case of OVERDOSE? In case of overdose, call the poison control helpline at . Information is also available online at https://www.poisonhelp.org/help. If the victim has collapsed, had a seizure, has trouble breathing, or can't be awakened, immediately call emergency services at 911. Symptoms of overdose may include the following: ? muscle shakes and spasms ? seizures ? confusion ? hallucinations ? coma What OTHER INFORMATION should I know? Keep all appointments with your doctor and the laboratory. Your doctor may order certain lab tests to check your body's response to cefepime injection. Before having any laboratory test, tell your doctor and the laboratory personnel that you are taking cefepime injection. If you are diabetic and test your urine for glucose, use Clinistix or TesTape (not Clinitest) to test your urine for sugar while taking this medication. Ask your pharmacist any questions you have about cefepime injection. Keep a written list of all of the prescription and nonprescription (rrhd-[id number]-[id number]) medicines, vitamins, minerals, and dietary supplements you are taking. Bring this list with you each time you visit a doctor or if you are admitted to the hospital. You should carry the list with you in case of mary anne rgencies. Brand Name(s): ? Maxipime?? also available generically This report on medications is for your information only, and is not considered individual patient advice. Because of the changing nature of drug information, please consult your physician or pharmacist about specific clinical use. The [place] [employer] represents that the information provided hereunder was formulated with a reasonable standard of care, and in conformity with professional standards in the field. The [place] [employer] makes no representations or warranties, express or implied, including, but not limited to, any implied warranty of merchantability and/or fitness for a particular purpose, with respect to such information and specifically disclaims all such warranties. Users are advised that decisions regarding drug therapy are complex medical decisions requiring the independent, informed decision of an appropriate health managed care provider, and the information is provided for informational purposes only. The entire monograph for a drug should be reviewed for a thorough understanding of the drug's actions, uses and side effects. The [employer] [employer] does not endorse or recommend the use of any drug.The information is not a substitute for medical care. AHFS?? Patient Medication Information?. ?? Copyright, 2023. The [employer] [employer]??, [address], [address], [place], [place]. All Rights Reserved. Duplication for commercial use must be authorized by [facility]. Selected Revisions: October 31, 2015. AHFS?? Patient Medication Information?. ?? Copyright, 2024 * Zachary Ford - Cynthia Tilley RN - 12/19/2024 4:08 PM EDT Images from the original note were not included. [address] Central Line Infections You need a central line as part of your treatment. It?s also called a central venous access device (CVAD) or central venous catheter (CVC). A small, soft tube called a catheter is put in a vein that leads to your heart. The central line is used instead of a standard I.V. (intravenous) line. It doesnot need to be replaced as often as a standard I.V. This means less pain and fewer needle sticks during treatment. But central lines come with a risk of infection. This sheet tells you more about central line infections and what hospitals are doing to prevent them. And it explains how an infection is treated if one happens. Types of central lines With a central line, a catheter is inserted into your body through a vein that leads to the large vein near the heart (vena cava). Types of central lines and their risk of infection are listed below.Which type is best for you depends on your needs and your overall health. Your doctor will talk with you which type of line you need, and why. ? Peripherally inserted central catheter (PICC). This is placed in a large vein in the upper arm, or near the bend of the elbow. ? Subclavian line. This is placed in a vein that runs behind the collarbone. ? Internal jugular line. This is placed in a large vein in the neck. Infection risk is higher here than with a PICC or subclavian line, but lower than with a femoral line. ? Femoral line. This may be placed in a large vein in the groin. This site is generally not used because of an increased risk for infection. ? Tunneled catheter. This is run through the soft tissue under the skin before it enters a vein. A small cuff helps hold the catheter in place. Both the tunnel and the cuff help lower your chances for infection. This type of catheter may be placed in any of the above locations. ? Port. This small device is placed completely under the skin on the arm or chest. It?s connected to a catheter that is threaded into the vena cava. Types of infections A central line provides a direct path into your bloodstream. This gives germs possible access into your body. All types of central lines are associated with some risk of infection. Often, the germs that cause a central line infection come from your own skin. There are two possible types of infection: ? Local infection. This can happen where the central line enters your body. Symptoms include redness, pain, or swelling at or near the catheter site. This is the area where the catheter enters your body. You may also have pain or tenderness along the path of the catheter, and drainage from the skinaround the catheter. ? Systemic infection (also called bacteremia). This can happen if germs get into the bloodstream. It is very serious and can be fatal. Symptoms include sudden fever, shaking chills, a racing heartbeat, confusion, changes in behavior, and a skin rash. Risk factors for infection Anyone who has a central line can get an infection. Your risk is higher if you: ? Are in the intensive care unit (ICU). ? Have a weak immune system or serious illness. ? Are getting bone marrow or chemotherapy. ? Have the line in for an extended time. ? Have a central line in your neck or groin. ? Have the catheter used often to draw blood or give you medicines. How central line infections are treated Treatment depends on the type of central line placed, how severe the infection is, and your overallhealth. Your doctor will prescribe antibiotics to fight the infection. The line may also need to beremoved. In some cases, the line may be flushed with high doses of antibiotics. This may kill the germs causing the infection, so the line doesn?t have to be removed. What hospitals do to prevent infection Hospitals have ways to reduce central line infections. They include: ? Using good hand hygiene. Hospital staff clean their hands before and after touching the line. They wash their hands with soap and water. Or they use an alcohol-based hand animal handler containing at least 60% alcohol. ? Using sterile practices during placement. The doctor who places the line wears germ-free (sterile) clothing including a long-sleeved gown, a mask, hat, and gloves. Before the line is placed, your skin is cleaned with an antiseptic solution. During placement, you are fully covered with a large sterile sheet (a sterile drape). Only the spot where the line is being placed is exposed. After placement, the site where the line enters the body is covered with a sterile bandage (dressing). Whenever the dressing is soiled or loose, they change it right away. ? Choosing a lower-risk vein. Whenever possible, the line is placed in a vein that's right for yourtreatment and has the lowest infection risk. Some hospitals use lines coated with an antimicrobial substance to reduce the chance of infection. An antibiotic patch may also be placed over the line. ? Limiting how often blood is drawn from your central line. Each time your line is used, the risk for infection increases. ? Scrubbing the cap (hub) of your catheter vigorously with an antiseptic, such as a 70% alcohol swab, before each use. ? Checking for infection. The line is checked often for infection. It's removed as soon as you no longer need it. ? Cleaning your body every day with a soap called chlorhexidine gluconate (CHG). This soap helps reduce the risk for infection. ? Swabbing your nose with a povidine-iodine antiseptic several times during your hospital stay. This helps to prevent infections such as methyllin-resistant staphylococcus aureus (MRSA). What you can do to prevent infection Good handwashing helps prevent central line infections. Before you get a central line, ask questions. Find out why you need the line and where it will be placed. Learn what steps the hospital is taking to reduce your infection risk. After the line has been placed, you, your caregivers, and any visitors can help prevent infection by doing the following: ? Use good hand hygiene. Wash your hands often with soap and clean, running water (warm or cold), and use alcohol-based hand animal handler with at least 60% alcohol as directed. To clean your hands well,follow the guidelines on this sheet. Visitors should wash their hands well when they arrive and when they leave. ? Make sure the health care staff and your visitors clean their hands. They should use soap and clean, running water or an alcohol-based hand animal handler before and after checking the line. Don?t be afraid to remind them. ? Follow your hospital team's personal hygiene instructions. This may include bathing every day with CHG soap. ? Talk with your care team about how often your line needs to be used for drawing blood. If possible, have them draw blood from lower risk veins in your arm. ? Keep the line dry. Follow your doctor?s guidelines for bathing. If the dressing does get wet, tell your doctor right away. ? Limit touching your line. Even when your hands are clean, try not to touch the catheter or dressing. Remind visitors not to touch your line. ? Learn the sterile dressing technique. This is important if you will be caring for the line at home. Your care team will show you how to use sterile method to change your dressing. Tell your team ifthe dressing or area around it gets wet, dirty, or if the bandage is loose. ? At home, follow all instructions from your care team about how to care for your line and dressing. Change your dressing right away if it's loose or gets dirty. Risk for blood clot If a blood clot forms, it can block blood flow through the vein where the catheter is placed. Signsof a blood clot include pain or swelling in the neck, face, chest, or arm. If you have any of thesesymptoms, contact your doctor right away. You may need an ultrasound exam to locate the blood clot and receive treatment. Handwashing To protect the central line from germs, it?s very important to wash your hands often and clean themwell. You and anyone who comes in contact with you should follow these steps: ? Wet your hands with clean, running water (cold or warm). Don't use hot water. It can cause skin irritation when you wash your hands often. ? Apply enough soap to cover the entire surface of your hands, including your fingers. ? Rub your hands together briskly for at least 20 seconds. Make sure to rub the front and back of each hand up to the wrist, your fingers and fingernails, between the fingers, and each thumb. ? Rinse your hands with clean, running water. ? Dry your hands completely with a new, unused paper towel. Don?t use a cloth towel or other reusable towel. These can hold germs. ? Use the paper towel to turn off the faucet, then throw it away. If you?re in a bathroom, also usea paper towel to open the door instead of touching the handle. When you can't use soap and water, alcohol-based hand sanitizers are a good choice for cleaning your hands. The animal handler should have at least 60% alcohol. Note that some germs can't be killed by alcohol. Your care team can answer any questions you have about when to use a hand animal handler, or when it?s better to wash with soap and water. Follow these steps: ? Spread the hand animal handler in the palm of one hand. (Check the package for specific guidelines.) ? Rub your hands together briskly. Clean the backs of your hands, the palms, between your fingers, and up your wrists. ? Rub until the animal handler is gone and your hands are completely dry. When to contact your doctor Contact your doctor right away if you have a central line and: ? You have pain or burning in your shoulder, chest, back, arm, or leg. ? You have a fever of 100.4?? F ( 38??C) or higher, or as advised by your doctor. ? You have chills. ? You have pain, redness, drainage, burning, or stinging at the catheter site. ? You are coughing, wheezing, or feeling short of breath. ? You have a racing or irregular heartbeat. ? You have muscle stiffness or trouble moving. ? You hear gurgling noises coming from the catheter. ? Your catheter falls out, breaks, cracks, leaks, or has other damage. ? You bleed from the catheter or where it enters the skin. Last Reviewed Date: 2024 00:00:00 ?? [id number] [employer]. All rights reserved. This information is not intended as a substitute for professional medical care. Always follow your healthcare professional's instructions. * Progress Notes - Cynthia Tilley RN - 12/19/2024 4:04 PM EDT OPAT Enrollment Progress Note Patient: Teresa Rivera : 1960 Referring ID Team: Transplant ID Indications for Use: Osteoarticular Infection, non-prosthetic (Additional Indications for Use comments may be attached to the order. To view those comments, please review the order in Chart Review) Evaluation Start Date: 12/19/24 Evaluation Status: Complete Enrollment Status: Standard OPAT Appropriate Standard Enrollment Plan: Home Infusion Number of IV Medications: 1 Delivery Method: Elastomeric Continuous OPAT Nurse Navigator Eligibility and Assessment Note (Standard OPAT) Patient has met all established OPAT criteria to safely and successfully administer IV antibiotics at home via a central venous access device. It is the opinion of the ID team that the patient can bedischarged home to complete their IV antibiotic course. Patient Name: Teresa Rivera Primary ID Diagnosis: Osteoarticular Infection, non-prosthetic Referring ID Provider: Manfred IV Antimicrobial Therapy Plan: See OPAT MD intake note for final recommendations Recommended IV Access: Double Lumen PICC Patient Specific Outpatient Circumstances: [address] [address] (patients home address) Patient will be staying with her sister Era at: [address] Family Support: Extended Emergency Contact Information Primary Emergency Contact: Zachary Rivera Mobile Relation: Son Preferred language: Barbadian Environmental Aid needed? No Secondary Emergency Contact: NicoleAurora Mobile Relation: Daughter Preferred language: Barbadian Environmental Aid needed? No Contact information: Teresa Rivera [phone] Outpatient services (including home infusion, home health, facility referral: See recent case management/social work note for finalization of services ID follow up appointment: Future Appointments Date Time Provider Department Center 01/19[facility]25 9:20 AM [facility]/19/[facility]25 10:45 AM [facility] 03/08/2025 1:00 PM Teresita Oconnell MD [facility] [place] Patient Assessment I spoke with patient at bedside and completed an initial assessment with regards to OPAT eligibility. I explained the OPAT program and its services (IV antimicrobial management, lab monitoring, follow up appointments reminders, etc.) to the patient and family. Patient states family can help with IV antimicrobial administration at home. When speaking with the patient's recognized support at bedside (sister, Era), she confirmed she will be able to assist this patient in IV antimicrobial administration when the patient is discharged home. Transportation was also identified and confirmed with help of patient and family member. After this discussion, the patient appeared to be a good candidate for the OPAT program. Patient was educated about s/s of infection at the PICC line insertion site, how to keep the PICC line dressing dry while bathing, weight lifting limitations of 10 pounds or more, avoiding intense physical work and any repetitive motion within arm the PICC line was placed and how the PICC line dressing must be changed each week, weekly lab monitoring, and OPAT availability. Patient was given information about IV antimicrobials including possible administration options (continuous , IV push, number of infusions) and estimated duration of therapy. Treatment medications and delivery method may change based on culture results. Patient prefers Elastomeric ball, continuous infusion. Patient and family verbalized understanding and provided teachback and demonstration on assessment discussion as stated above. Patient was provided with the PICC agreement and signed prior to ending the discussion by the nurse navigator. Patient agreed for the OPAT team to leave messages on their cell phone. OPAT program packet including contacts were left with patient and family in the event they would have questions or concerns. The OPAT nurse navigator will continue to follow the patient peripherally for any changes in the discharge plan. Please direct questions to myself, another member of the OPAT team, or the ID consulting provider via secure chat or staff messaging in [employer]. Patient and family will need to be educated by the infusion company before being discharged home. This note is not the final recommendation from the infectious diseases team, please refer to the mostrecent note for this information. Cynthia Tilley RN 12/19/2024 * Progress Notes - Vonnie Gutierrez RN - 12/19/2024 1:11 PM EDT Case Management Adult Progress Note Teresa Rivera 64 y.o. female CSN: [id number] Admission: 12/15/2024 8:36 PM Primary Problem: Dyspnea Anticipated Discharge Date: TBD Has Discharge Plans Changed? No Medicare Second Notice: Not applicable Medically Ready for Discharge: Anticipated in 2-4 Days Additional Comments Patient admitted for worsening dyspnea and hypoxia noted to desaturate to 80s on her baseline oxygen during activity. Patient on 4L currently; baseline is 2L. Per MD patient is not medically ready for discharge. Patient s/p I&D of wound on 12/16/24 with neurosurgery. ID consulted for abx length. PT/OT consulted. RNCM will continue to monitor for further discharge needs. Vonnie Gutierrez RN * Progress Notes - Nahomi Vera PA - 12/19/2024 1:03 PM EDT TRANSPLANT INFECTIOUS DISEASE PROGRESS NOTE 12/19/2024 SUBJECTIVE: Patient is resting comfortably in bed with her sister at bedside. She states overall feeling well aside from itching at surgical site. She has been AF/HDS, tolerating abx without rashes, N/V/D. Discussed abx plan and questions answered. REVIEW OF SYSTEMS: 14-point ROS negative except as stated above. MEDICATIONS: Current Medications[1] ALLERGIES: Allergies[2] PHYSICAL EXAM: GEN: well-appearing, well-nourished, in NAD SKIN: Clean and dry dressing noted to scalp covering surgical site, no surrounding erythema. DL PICC noted to LUE. Otherwise, warm, well-perfused, no rashes or lesions on exposed skin EYES: sclera anicteric, EOMI, PERRL HENT: NCAT, mmm, neck supple, full ROM CHEST: atraumatic, symmetric chest rise HEART: RRR, normal S1/S2, no m/r/g LUNGS: CTAB, unlabored on 2L NC GI: NTND, BS normal, no organomegaly VASC: no cyanosis, no edema, peripheral pulses 2+ MSK: no obvious deformity NEURO: A&OX3, no focal neurologic deficits PSYCH: appropriate mood and affect VITAL SIGNS: Patient Vitals for the past 24 hrs: BP Temp Temp src Pulse Resp SpO2 Weight 12/19/24 1159 138/80 36.6 ??C (97.8 ??F) -- 66 -- 97 % -- 12/19/24 0807 133/75 36.5 ??C (97.7 ??F) Oral 60 -- 92 % -- 12/19/24 0500 -- -- -- -- -- -- 112 kg (247 lb 9.2 oz) 12/19/24 0407 126/68 36.4 ??C (97.5 ??F) Oral 71 -- 98 % -- 12/19/24 0112 -- -- -- 62 15 -- -- 12/18/24 2356 115/82 37.2 ??C (99 ??F) Oral 71 -- 98 % -- 12/18/241924 -- 36.9 ??C (98.4 ??F) Oral -- -- -- -- 12/18/24 192 136/77 -- -- 70 -- -- -- 12/18/24 1714 121/83 -- -- (!) 149 -- -- -- 12/18/24 1702 126/77 -- -- (!) 141 -- -- -- 12/18/24 1645 -- -- -- (!) 144 -- -- -- 12/18/24 1628 -- -- -- (!) 147 -- -- -- 12/18/24 1626 124/84 37 ??C (98.6 ??F) Oral 66 18 99 % -- 12/18/24 1541 135/79 36.7 ??C (98 ??F) -- 68 16 97 % -- 12/18/24 1444 135/78 36.8 ??C (98.2 ??F) Oral 64 19 97 % -- 12/18/24 1424 -- -- -- 63 18 -- -- 12/18/24 1344 (!) 148/78 36.5 ??C (97.7 ??F) -- 84 18 94 % -- LABS: Labs in last 18 hours CBC WBC 8.55 Hb 8.0 (L) Plt 204 Hct 25.9 (L) ANC ?? INR ??, PTT ??, Anti-Xa ?? BMP Na 143 Cl 105 BUN 7 (L) Glu 152 (H) K 3.4 (L) Co2 25 Cr 0.96 Ca 9.0 iCa ?? Mg 1.5 (L), Phos 3.4 Lactate ?? LFT AST 16 AlkPhos 76 T Prot 6.5 ALK 11 Bili 0.4 Alb ?? D.Bili ?? Patient records reviewed and pertinent findings outlined below. IMAGING/STUDIES: XR Chest 1 View Result Date: 12/18/2024 Impression: Right upper lung airspace disease. Bibasilar atelectasis and/or airspace disease. 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 CT Angio Pulmonary Embolism Result Date: 12/16/2024 Impression: Bilateral segmental and subsegmental pulmonary emboli with greatest involvement in the right lower lobe. No right heart strain. Increased size of right upper paramediastinal soft tissue lung mass in the region of prior malignancy is highly concerning for disease recurrence. Increased size of right upper paratracheal lymph node raises concern for metastatic involvement. Nodular consolidation within the posterior superior right upper lobe likely relating to postobstructive pneumonia. XR Chest 1 View Result Date: 12/15/2024 Impression: Stable appearance of the chest. No change right upper lobe opacity IR Lumbar Puncture Result Date: 12/13/2024 Impression: Technically successful diagnostic lumbar puncture under fluoroscopic guidance. Echo, Adult Transthoracic Complete Result Date: 12/08/2024 Narrative: Left Ventricle: The left ventricle is normal [...] is no recent study available for direct [id number] comparison. XR Chest 1 View Result Date: 12/03/2024 Impression: Improved right upper lobe opacity. MR Head w and wo IV Contrast Result Date: 12/02/2024 Impression: Restaging of small cell lung cancer. Compared [...] or enlarging intracranial hemorrhage or acute infarction. ANTIMICROBIAL REVIEW: Anti-infectives (From admission, onward) Start Dose/Rate Route Frequency Ordered Stop 12/18/24 1600 vancomycin in NS (Vancocin) IVPB 1,500 mg 1,500 mg 166.7 mL/hr over 90 Minutes Intravenous Every 24 hours 12/17/24 1438 12/18/24 1400 cefepime (Maxipime) 2 g in sodium chloride 0.9% 100 mL IVPB (vial adapter required) 2 g 36.7 mL/hr over 3 Hours Intravenous Every 8 hours 12/18/24 1308 12/16/24 1600 metroNIDAZOLE (Flagyl) tablet 500 mg 500 mg Oral Every 8 hours 12/16/24 1427 MICROBIOLOGY: 12/16 Bone culture (incluidng anerobic, AFB and fungal) PsA 12/16 Intra-operative swab culture (including anerobic, AFB, Fungal) PsA 12/16 Resp culture poor quality 12/16 Urine strep and legionella negative 12/16 Blood culture NGTD 12/15 Resp culture negative 12/15 Covid negative 12/15 Blood culture NGTD 12/01 Resp culture MDR PsA, MURF ASSESSMENT: Teresa Rivera is a 64 y.o. 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 She was recently admitted 11/29/24 - 12/10/24 after a seizure. During that admission, she had a respiratory culture that grew MDR PRODUCT TECHNICIAN pseudomonas. She is now here with concern for postobstructive pneumonia and craniotomy surgical site infection. Blood cultures are NGTD. Patient ultimately had OR washout on 12/16 with NSGY with purulence/signs of infection associated with and below bone flap. Intra-operative cultures (+) PsA. PROBLEM LIST Craniotomy surgical site infection Pneumonia with history of MDR/PRODUCT TECHNICIAN organism Multiple bilateral PE Small cell lung cancer with mets to the brain on chemotherapy History of craniotomy RECOMMENDATIONS: - Would continue cefepime 2g q8h for coverage of PsA, ok to d/c other antimicrobials -Tentative duration of therapy is 6 weeks from OR washout/LV (12/16 -> 01/26) -Continue at least weekly CBC with diff, CMP, CRP on the above -Will follow cultures -OPAT order placed, pending NN eval - DL PICC in place -Ok to initiate chemotherapy from ID perspective when medically cleared from other specialities Thank you for allowing us to participate in this patient's care. ID will follow. Nahomi Vera PA-C Division of Infectious Diseases Available on [employer] Chat History, assessment, and plan discussed with ID attending, Dr. Shearer [1] Current Facility-Administered Medications Medication Dose Route Frequency Provider Last Rate Last Admin acetaminophen (Tylenol) tablet 650 mg 650 mg Oral q6h PRN Lisa Lloyd, DO 650 mg at 12/19/24 1022 atorvastatin (Lipitor) tablet 40 mg 40 mg Oral q PM Madujibeya, Gordy N, RIPENING ROOM OPERATOR, DNP 40 mg at 12/18/24 1702 cefepime (Maxipime) 2 g in sodium chloride 0.9% 100 mL IVPB (vial adapter required) 2 g [id number] Lisa Lloyd, DO 36.7 mL/hr at 12/19/24 1023 2 g at 12/19/24 1023 cetirizine (ZyrTEC) tablet 10 mg 10 mg Oral Daily Madujibeya, Gordy N, RIPENING ROOM OPERATOR, DNP 10 mg at 12/19/24 0837 glucose (Glutose) 40 % oral gel 15-30 grams of glucose 15-30 grams of glucose Sublingual q15 min PRN Madujibeya, Gordy N, RIPENING ROOM OPERATOR, DNP Or dextrose 10 % (D10W) bolus 125 mL 125 mL Intravenous q15 min PRN Madujibeya, Gordy N, RIPENING ROOM OPERATOR, DNP Or dextrose 10 % (D10W) bolus 250 mL 250 mL Intravenous q15 min PRN Madujibeya, Gordy N, RIPENING ROOM OPERATOR, DNP Or glucagon (human recombinant) injection 1 mg 1 mg Intramuscular q15 min PRN Gordy Purvis APRN, DNP diphenhydrAMINE (Benadryl) tablet 25 mg 25 mg Oral q8h PRN Lisa Lloyd, DO 25 mg at 12/17/24 1853 FLUoxetine (PROzac) capsule 40 mg 40 mg Oral Daily Lisa Lloyd, DO 40 mg at 12/19/24 0837 heparin 25,000 units/250 mL (100 unit/mL) infusion - Adult LOW DOSE Protocol 0- 35 Units/kg/hr Intravenous Titrated Lisa Lloyd, DO 9.9 mL/hr at 12/19/24 0909 9 Units/kg/hr at 12/19/24 0909 insulin glargine-yfgn 100 UNIT/ML injection 5 Units 5 Units Subcutaneous Nightly Gordy Purvis APRN, DNP 5 Units at 12/18/242029 ipratropium-albuterol (Duo-Neb) 0.5-2.5 mg/3 mL nebulizer solution 3 mL 3 mL Nebulization q6h PRN Gordy Purvis APRN, DNP levETIRAcetam (Keppra) tablet 1,000 mg 1,000 mg Oral BID Lisa Lloyd, DO 1,000 mg at 12/19/24 0836 metoprolol tartrate (Lopressor) tablet 50 mg 50 mg Oral TID Lisa Lloyd, DO 50 mg at 12/19/24 0837 metroNIDAZOLE (Flagyl) tablet 500 mg 500 mg Oral q8h Lisa Lloyd, DO 500 mg at 12/19/24 0837 Tiotropium Norman Monohydrate (Spiriva Respimat) 2.5 MCG/ACT inhaler 2 puff 2 puff Inhalation Daily Gordy Purvis APRN, DNP 2 puff at 12/18/24 0811 And mometasone-formoterol (Dulera 200) 200-5 MCG/ACT inhaler 2 puff 2 puff Inhalation BID Gordy Purvis APRN, DNP 2 puff at 12/18/24 2030 mupirocin (Bactroban) 2 % ointment 1 Application 1 Application Each Nostril BID Lisa Lloyd, DO 1 Application at 12/19/24 0837 oxyCODONE (Roxicodone) immediate release tablet 5 mg 5 mg Oral q4h PRN Lisa Lloyd, DO 5 mg at 12/18/24 2047 Or oxyCODONE (Roxicodone) immediate release tablet 10 mg 10 mg Oral q4h PRN Lisa Lloyd, DO 10 mg at 12/19/24 1022 pantoprazole (Protonix) EC tablet 40 mg 40 mg Oral Daily Madujibeya, Gordy N, RIPENING ROOM OPERATOR, DNP 40 mg at 12/19/24 0837 prochlorperazine (Compazine) tablet 10 mg 10 mg Oral q6h PRN Madujibeya, Gordy N, RIPENING ROOM OPERATOR, DNP sodium chloride 0.9 % flush 10 mL 10 mL Intravenous q12h Madujibeya, Gordy N, RIPENING ROOM OPERATOR, DNP 10 mL at 12/19/24 0207 And sodium chloride 0.9 % flush 10 mL 10 mL Intravenous PRN Kentonujibeya, Gordy N, RIPENING ROOM OPERATOR, DNP sodium chloride 0.9 % flush 10 mL 10 mL Intravenous q12h Lisa Lloyd, DO 10 mL at 12/19/24 1200 sodium chloride 0.9 % flush 10 mL 10 mL Intravenous q1h PRN Lisa Lloyd, DO sodium chloride 0.9 % flush 20 mL 20 mL Intravenous q1h PRN Lisa Lloyd, DO vancomycin in NS (Vancocin) IVPB 1,500 mg 1,500 mg Intravenous q24h Lisa Lloyd, DO 166.7 mL/hr at 12/19/24 0026 1,500 mg at 12/19/24 0026 [2] Allergies Allergen Reactions Cephalexin Nausea and Vomiting Lisinopril Cough Meloxicam Nausea * Progress Notes - Lisa Lloyd DO - 12/19/2024 8:15 AM EDT Images from the original note were not included. Subjective Patient was seen and examined at bedside. Her sister is at bedside. She feels ok, having ongoing pain for which she just received pain meds. Discussed her plan of care and questions were answered. Medications Current Scheduled Medications[1] Current Continuous Medications[2] Current PRN Medications[3] Objective Last Recorded Vitals Blood pressure 133/75, pulse 60, temperature 36.5 ??C (97.7 ??F), resp. rate 15, height 1.702 m (5'7.01 ), weight 112 kg (247 lb 9.2 oz), SpO2 92%. Intake/Output Summary (Last 24 hours) at 12/19/2024 0815 Last data filed at 12/19/2024 0656 Gross per 24 hour Intake 1178.45 ml Output -- Net 1178.45 ml Physical Exam General: awake and alert, resting in NAD HEENT: NC, bandage on skull is CDI CV: RRR, no MRG Lungs: scattered rhonchi, on 2L o2 Abd: soft, nontender Ext: moving all ext Neuro: A&O with no focal deficit Psych: appropriate mood and affect Skin: scattered echymossis LABS Results from last 7 days Lab Units 12/19/24 0025 12/18/24 0516 12/17/24 2159 12/17/24 1522 WBC 10*3/uL 8.55 7.00 -- 8.32 HEMOGLOBIN g/dL 8.0* 6.9* 6.9* 7.1* HEMATOCRIT % 25.9* 22.4* 22.2* 23.1* PLATELETS 10*3/uL 204 201 -- 202 Results from last 7 days Lab Units 12/19/24 0025 12/18/24 0516 12/17/24 1522 SODIUM mmol/L 143 146* 142 POTASSIUM mmol/L 3.4* 3.8 3.7 CHLORIDE mmol/L 105 109* 105 CO2 mmol/L 25 26 27 BUN mg/dL 7* 8 11 CREATININE mg/dL 0.96 1.05 1.14* CALCIUM mg/dL 9.0 8.8* 8.7* BILIRUBIN TOTAL mg/dL 0.4 0.3 0.3 ALKALINE PHOSPHATASE U/L 76 75 75 ALT U/L 11 11 10 AST U/L 16 23 17 GLUCOSE mg/dL 152* 130* 133* IMAGING XR Chest 1 View Result Date: 12/18/2024 Impression: Right upper lung airspace disease. Bibasilar atelectasis and/or airspace disease. CRITICAL RESULT: No. COMMUNICATION: Per this written report. Drafted by Liseth Woods MD on 12/18/2024 6:33 PM Final report signed by Liseth Woods MD on 12/18/2024 6:34 PM Assessment/Plan Principal Problem: Dyspnea Active Problems: Morbid obesity with BMI of 40.0-44.9, adult (CMS/HCC) Small cell lung cancer (CMS/HCC) Anemia COPD (chronic obstructive pulmonary disease) (CMS/HCC) Diabetes mellitus (CMS/HCC) Type 2 diabetes mellitus without complications Pneumonia Pulmonary embolism Incisional infection This is a 64 y/o with 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 She had been off of her outpatient anticoagulation recently In light of SDH. She underwent washout with NSGY on 12/16 and is being followed by ID. She has intermittently required blood transfusion and remains on heparin drip which was restarted on 12/18 per neurosurgery. Ongoing discussion with franchise consultant teams to determine timing of resuming oral anticoagulation as well as when to resume outpatient chemotherapy. PT & OTare consulted. Acute bilateral segmental and subsegmental pulmoary emboli Acute on chronic hypoxic respiratory failure 2/2 above and with concern for pneumonia Recurrent small cell lung cancer with resected oligmetastasis 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 concerning for pneumonia vs local recurrence of SCLC -oncology following, appreciate input -heparin gtt was started on admission then held perioperatively, on 12/18 ok to resume. Remains on heparin pending further input/discussion with oncology and neurosurgery -continue abx appreciate ongoing ID recommendations> discussed with ID today 12/19 recommending monotherapy with cefepime 2g q8h, ok to discontinue vanc and flagyl. Tentative duration of therapy 6 weeks from OR washout (12/16-01/26). Needs weekly CBC with diff, CMP, CRP on the above, with OPAT order placed, has a PICC line in place. -post op oncology requesting neurosurgery input regarding time to wait prior to chemotherapy -blood and sputum cx pending, monitor procal/crp -continue vanc, cefepime, flagyl per ID with therapeutic drug monitoring Hypokalemia Hypomagnesemia -replete and check in AM Acute on chronic anemia noted- multifactorial, transfused 1 unit prbc on 12/18 and trend hgb, transfuse for hgb <7 Craniotomy site infection -neurosugery following -underwent washout on 12/16 -heparin ok to resume 12/18 per nsgy, discuss with neuro and onc when ok for doac -prn pain control -continue abx, ID following as above Stage III SCLC w/ mets to brain s/p craniotomy and WBRT - Chemo: Carboplatin/Etopside daily, Atezolizumab q.21 days - last chemo: 11/10/24 - Radiation Therapy: 10/24/24-11/07/24, 3,000 cGY - MRI 12/02 : Postsurgical changes related to left parietal craniotomy for resection of an extra-axial metastasis. small amount of intraparenchymal hemorrhage in the perirolandic region along the resection margin. Unchanged abundant dural thickening and enhancement subjacent to the craniotomy site which could reflect a combination of posttreatment changes and reactive changes. A superimposed infectious process could be considered in the appropriate clinical setting. Residual cleft of enhancing tissue along the left falx which may reflect residual or recurrent tumor. CTA Pul 12/15- interval increase in right upper paramediastinal lung mass, now measuring 39 x 24 x 23 mm; Increased size of right upper paratracheal lymph node raises concern for metastatic involvement. -discussed with Dr. Felton personally, not clear if disease in lung is progressing. Post op oncology is requesting additional neurosurgery input regarding minimum recommended time to wait before restarting chemotherapy Afib w RVR, RVR resolved - Follows [facility] - hx of typical aflutter s/p CTI flutter ablation - home meds: Xarelto on her last admission, hold per NSGY for recent SAH/SH - continue metoprolol increased to 50 mg three times a day; titrate as tolerated Hx of Acute Kidney Injury (Cr improving) - JORGE Noted on last admission; after presenting with Cr of 2.81 with no clear etiology -sCr: 1.48 (H), (Baseline sCr 0.61- 0.91), BUN: 19, eGFR: 39.4, -Estimated Creatinine Clearance: 49.8 mL/min (A) (by C-G formula based on SCr of 1.48 mg/dL (H)). - Renally dose medications - Strict I&O - Repeat BMP in the AM - Renal US on last admission without hydronephrosis - monitor volume status closely Seizure - Treated with Keppra inpatient, no refill history on discharge - discussed with pharmacy and have resumed Type II diabetes with hyperglycemia - Continue home insulin regimen with lantus - FSBS AC/HS with correctional insulin - Consistent carb diet HFpEF does not appear in exacerbation - Last echo on 12/08/2024 noted LVEF of 52%; with elevated filling pressure - home meds include: lasix, spiralactone, htcz-triamterene, metoprolol, losartan - Holding home antihypertensives in setting of low BP/normotension, monitor and resume as able - appears close to euvolemia, consider restarting lasix in coming days Normocytic Normochromic Anemia/Anemia of Chronic Disease HTN - meds as above HLD - atorvastatin, COPD - July 2023 PFT Moderate hyperinflation suggestive underlying obstructive disease. Nonspecific spirometry. Moderate reduced diffusion capacity DLCO 41%. - Home O2 requirement: 3L - home meds: Breztri, cetirizine, montelukast, - Spiriva plus dulera -DuoNebs q6 PRN -Titrate O2NC to SpO2 88-92% GERD - protonix, tums Chronic hypomagnesemia - Mag oxide Anxiety/Depression - hydroxyzine, fluoxetine Neuropathy/Chronic Pain -gabapentin Chemo induced Nausea and Vomiting - Zofran and Compazine Obesity - BMI 39.02 kg/m2 - complicates all aspects of care Diet - Regular Code status - Full Code DVT prophylaxis - heparin gtt Discharge planning - pending clinical course , ID has left recs for 6 weeks of OPAT cefepime, awaiting input from onc and neuro regarding timing of doac initiation, remains on heparin drip at this time, asking PT &OT to eval for dcp needs. Lisa Lloyd DO Department of Internal Medicine Division of Hospital Medicine Epic Chat Preferred Pager: [phone] 12/19/2024 [1] atorvastatin, 40 mg, Oral, q PM cefepime, 2 g, Intravenous, q8h cetirizine, 10 mg, Oral, Daily FLUoxetine, 40 mg, Oral, Daily insulin glargine-yfgn, 5 Units, Subcutaneous, Nightly levETIRAcetam, 1,000 mg, Oral, BID magnesium sulfate, 2 g, Intravenous, Once metoprolol tartrate, 50 mg, Oral, TID metroNIDAZOLE, 500 mg, Oral, q8h Tiotropium Norman Monohydrate, 2 puff, Inhalation, Daily And mometasone-formoterol, 2 puff, Inhalation, BID mupirocin, 1 Application, Each Nostril, BID pantoprazole, 40 mg, Oral, Daily potassium chloride, 10 mEq, Intravenous, q1h sodium chloride, 10 mL, Intravenous, q12h sodium chloride, 10 mL, Intravenous, q12h vancomycin, 1,500 mg, Intravenous, q24h [2] heparin - COM Adult Low Dose Protocol - MAR calculator by anti-Xa, 0-35 Units/kg/hr, Last Rate:Stopped (12/19/24 0656) [3] PRN medications: acetaminophen, glucose OR dextrose 10 % OR dextrose 10 % OR glucagon (human recombinant), diphenhydrAMINE, ipratropium- albuterol, oxyCODONE OR oxyCODONE, prochlorperazine, [COMPLETED] Insert peripheral IV AND Saline lock IV AND sodium chloride AND sodium chloride, sodium chloride, sodium chloride * Care Plan - Daphnie Perez RN - 12/19/2024 7:51 AM EDT Problem: Adult Inpatient Plan of Care Goal: Plan of Care Review Outcome: Ongoing, Progressing Goal: Patient-Specific Goal (Individualized) Outcome: Ongoing, Progressing Goal: Absence of Hospital-Acquired Illness or Injury Outcome: Ongoing, Progressing Intervention: Identify and Manage Fall Risk Flowsheets (Taken 12/19/2024 075) Safety Promotion/Fall Prevention: activity supervised Goal: Optimal Comfort and Wellbeing Outcome: Ongoing, Progressing Problem: Fall Injury Risk Goal: Absence of Fall and Fall-Related Injury Outcome: Ongoing, Progressing Intervention: Identify and Manage Contributors Flowsheets (Taken 12/19/2024 075) Medication Review/Management: medications reviewed Self-Care Promotion: BADL personal objects within reach BADL personal routines maintained SMART GOAL: Pt will use call button when in need of ADL assistance during shift. Problem: Wound Goal: Optimal Coping Outcome: Ongoing, Progressing Goal: Optimal Functional Ability Outcome: Ongoing, Progressing Goal: Absence of Infection Signs and Symptoms Outcome: Ongoing, Progressing Goal: Improved Oral Intake Outcome: Ongoing, Progressing Goal: Optimal Pain Control and Function Outcome: Ongoing, Progressing Goal: Skin Health and Integrity Outcome: Ongoing, Progressing Goal: Optimal Wound Healing Outcome: Ongoing, Progressing Problem: Infection Goal: Absence of Infection Signs and Symptoms Outcome: Ongoing, Progressing Problem: Diabetes Goal: Optimal Coping Outcome: Ongoing, Progressing Goal: Optimal Functional Ability Outcome: Ongoing, Progressing Goal: Blood Glucose Level Within Target Range Outcome: Ongoing, Progressing Intervention: Optimize Glycemic Control Flowsheets (Taken 12/19/2024 0751) Hyperglycemia Management: blood glucose monitored Goal: Minimize Hypoglycemia Risk Outcome: Ongoing, Progressing Problem: Pneumonia Goal: Fluid Balance Outcome: Ongoing, Progressing Goal: Absence of Infection Signs and Symptoms Outcome: Ongoing, Progressing Goal: Effective Oxygenation and Ventilation Outcome: Ongoing, Progressing Problem: VTE (Venous Thromboembolism) Goal: Tissue Perfusion Outcome: Ongoing, Progressing Goal: Optimal Right Ventricular Function Outcome: Ongoing, Progressing * Care Plan - Ammy Prather RN - 12/19/2024 6:53 AM EDT Problem: Adult Inpatient Plan of Care Goal: Plan of Care Review Outcome: Ongoing, Progressing Flowsheets (Taken 12/18/2024 0113 by Mitzi Porter, JOSE MARTIN) Plan of Care Reviewed With: patient Goal: Patient-Specific Goal (Individualized) Outcome: Ongoing, Progressing Flowsheets (Taken 12/18/20242004) Patient/Family-Specific Goals (Include Timeframe): Patient will remain free of falls Individualized Care Needs: Sleep promotion Anxieties, Fears or Concerns: none verbalized Goal: Absence of Hospital-Acquired Illness or Injury Outcome: Ongoing, Progressing Intervention: Identify and Manage Fall Risk Flowsheets (Taken 12/18/20242004) Safety Promotion/Fall Prevention: activity supervised assistive device/personal items within reach clutter-free environment maintained fall prevention program maintained lighting adjusted mobility aid in reach nonskid shoes/slippers when out of bed toileting scheduled safety round/check completed room organization consistent Goal: Optimal Comfort and Wellbeing Outcome: Ongoing, Progressing Intervention: Monitor Pain and Promote Comfort Flowsheets (Taken 12/19/2024624) Pain Management Interventions: medication (see MAR) Problem: Fall Injury Risk Goal: Absence of Fall and Fall-Related Injury Outcome: Ongoing, Progressing Intervention: Identify and Manage Contributors Flowsheets (Taken 12/18/2024 1154 by Zoraida Frias) Medication Review/Management: medications reviewed Self-Care Promotion: independence encouraged BADL personal routines maintained Problem: Wound Goal: Optimal Coping Outcome: Ongoing, Progressing Intervention: Support Patient and Family Response Flowsheets Taken 12/19/2024650 by Ammy Prather RN Supportive Measures: active listening utilized Taken 12/18/2024112 by Mitzi Porter RN Family/Support System Care: involvement promoted Goal: Optimal Functional Ability Outcome: Ongoing, Progressing Intervention: Optimize Functional Ability Flowsheets (Taken 12/18/20242004) Activity Assistance Provided: assistance, 1 person Goal: Absence of Infection Signs and Symptoms Outcome: Ongoing, Progressing Intervention: Prevent or Manage Infection Flowsheets (Taken 12/18/2024 1154 by Zoraida Frias) Fever Reduction/Comfort Measures: lightweight bedding lightweight clothing Goal: Improved Oral Intake Outcome: Ongoing, Progressing Goal: Optimal Pain Control and Function Outcome: Ongoing, Progressing Intervention: Prevent or Manage Pain Flowsheets Taken 12/19/2024624 by Ammy Prather RN Pain Management Interventions: medication (see MAR) Taken 12/18/2024112 by Mitzi Porter RN Sleep/Rest Enhancement: awakenings minimized family presence promoted regular sleep/rest pattern promoted Goal: Skin Health and Integrity Outcome: Ongoing, Progressing Goal: Optimal Wound Healing Outcome: Ongoing, Progressing Problem: Infection Goal: Absence of Infection Signs and Symptoms Outcome: Ongoing, Progressing Problem: Diabetes Goal: Optimal Coping Outcome: Ongoing, Progressing Goal: Optimal Functional Ability Outcome: Ongoing, Progressing Goal: Blood Glucose Level Within Target Range Outcome: Ongoing, Progressing Goal: Minimize Hypoglycemia Risk Outcome: Ongoing, Progressing Problem: Pneumonia Goal: Fluid Balance Outcome: Ongoing, Progressing Intervention: Monitor and Manage Fluid Balance Flowsheets (Taken 12/19/2024650) Fluid/Electrolyte Management: fluids adjusted Goal: Absence of Infection Signs and Symptoms Outcome: Ongoing, Progressing Goal: Effective Oxygenation and Ventilation Outcome: Ongoing, Progressing Problem: VTE (Venous Thromboembolism) Goal: Tissue Perfusion Outcome: Ongoing, Progressing Intervention: Optimize Tissue Perfusion Flowsheets (Taken 12/18/20242004) VTE Prevention/Management: medication Goal: Optimal Right Ventricular Function Outcome: Ongoing, Progressing * Progress Notes - Félix Duval MD - 12/19/2024 6:43 AM EDT Neurosurgery Consult Follow-up Note History, exam, and imaging review with attending and discussed on rounds this morning. Teresa Rivera is a 64 y.o. female with past medical history of Stage III small- cell lung cancer with metastasis to the brain S/ P craniotomy, recent dramatic SAH & SDH s/p Craniectomy 12/16 Interval: OR Cultures growing Pseudamonas. Exam: GCS (EMV): 465 Awake, alert, oriented Follows commands appropriately Speech clear PERRL, EOMI ESQUEDA symmetrically, no drift Strength 5/5 throughout Sensation intact - Contact ID for reccomendations - okay to resume Hep gtt -Continue broad spec abx - Rest of care per primary team - Neurosurgery will continue to follow for ORCx - Thank you for allowing us to participate in the care of this patient. Please call with any questions or concerns. [phone] Félix Duval MD Resident Physician PGY-1 Department of Neurosurgery [facility] Cosigned by Abhilash Bangura MD at 12/19/2024 9:26 AM EDT Associated attestation - Abhilash Bangura MD - 12/19/2024 9:26 AM EDT I saw and evaluated the patient with the resident/fellow. I discussed the case with the resident/fellow and agree with the findings and plan as documented. * Procedures - Brian Dai RN - 12/18/2024 11:40 PM EDTAssociated Order(s): Insert PICC line Insert PICC line Performed by: Brian Dai RN Authorized by: Lisa Lloyd DO [place] Protocol: Verbal consent obtained?: Yes Written consent obtained?: Yes Risks and benefits: Risks, benefits and alternatives were discussed Consent given by: Patient Patient states understanding of procedure being performed: Yes Patient's understanding of procedure matches consent: Yes Procedure consent matches procedure scheduled: Yes Relevant documents present and verified: Yes Test results available and properly labeled: Yes Site marked: Yes Imaging studies available: Yes Patient identity confirmed: Verbally with patient, arm band and hospital- assigned identification number Time out: Immediately prior to the procedure a time out was called Indications: Vascular access Local anesthetic: Lidocaine 1% without epinephrine (4 ml) Sedation: Patient sedated: No Preparation: Skin prepped with 2% chlorhexidine and skin prepped with alcohol Skin prep agent dried: Skin prep agent completely dried prior to procedure Sterile barriers: All five maximal sterile barriers used - gloves, gown, cap, mask and large sterile sheet Hand hygiene: Hand hygiene performed prior to catheter insertion Orientation: Left Location (Adult): Basilic vein (Largest vein, txmlyrxn-vb-[id number] ratio 18%.) Site selection rationale: Infiltration from PIV in RUE. Patient position: Supine Catheter Lot #: [id number] Catheter transfer machine operator: Bard Power PICC Provena Catheter with Solo Valve Catheter placed: Double lumen Catheter size: 4 Fr Catheter trimmed length: 48 Catheter threaded length: 48 Vein placed in: SVC Catheter cm indwellin Catheter cm outside: 0 Placement confirmed by: Micropelt 3CG technology Pre-procedure: Landmarks identified Ultrasound guidance: Yes Sterile ultrasound techniques: Sterile gel and sterile probe covers were used Number of attempts: 1 Post-procedure: Adhesive securement device and sterile access caps placed on each lumen Dressing applied: CHG tegaderm Assessment: Blood return through all ports Patient tolerated the procedure well with no immediate complications.: Yes PICC kit educational material was given to the patient.: Yes Comments: VAT consult for PICC line. Patient had IV infiltration to RUE earlier in day during blood transfusion. LUE utilized for PICC line. Procedure explained to Patient thoroughly and consent obtained priorto PICC line placement (Consent placed on chart). After sterile drape placed over Patient, Patient's Nurse called into room. Patient's Nurse abided by sterile precautions donning mask and hair bonnet. Patient appeared to have claustrophobia and increased restlessness once drape was placed over Patient. Patient's Nurse able to calm Patient under sterile drape enough to allow finishing sterile PICC procedure. *Would not recommend Patient for any future bedside PICC placements unless given any pre-proceduralanxiolytic(s) and/or sedative medications. Images of vein and Sherlock 3CG uploaded to PACS. Able to confirm placement with Sherlock 3CG (Patient in sinus rhythm at time of PICC placement), okay to use order will be placed. Marcy limb precaution armband placed on left wrist for PICC precautions while PICC is in place (No sticks/BP's). Green alcohol caps placed on ends of each lumen hub/heplock. VAT consult completed. * Procedures - Rosalind Narvaez RN - 12/18/2024 2:20 PM EDTAssociated Order(s): Insert peripheral IV Insert peripheral IV Performed by: Rosalind Narvaez RN Authorized by: Lisa Lloyd DO Hand hygiene: Hand hygiene performed prior to insertion Inserted using aseptic techniques: Yes Preparation: Skin prepped with chg Orientation: Left, upper and medial Location: Arm Catheter placed: Peripheral IV Catheter size: 20g/2.225in. Line Technique: Ultrasound Guidance Number of attempts: 1 IV flushes: Without difficulty and positive blood return noted and IV luer locked Patient tolerance: Patient tolerated the procedure well and there were no complications Patient comfort measures used: Distraction and position of comfort IV site covered with: Transparent semipermeable dressing Education provided to: Patient * Care Plan - Zoraida Frias - 12/18/2024 11:55 AM EDT Problem: Adult Inpatient Plan of Care Goal: Patient-Specific Goal (Individualized) Outcome: Ongoing, Progressing Flowsheets (Taken 12/18/2024 0810) Patient/Family-Specific Goals (Include Timeframe): pt will remain free from falls and injury this shift Individualized Care Needs: safety Anxieties, Fears or Concerns: denies Problem: Fall Injury Risk Goal: Absence of Fall and Fall-Related Injury Outcome: Ongoing, Progressing Intervention: Identify and Manage Contributors Flowsheets (Taken 12/18/2024 1154) Medication Review/Management: medications reviewed Self-Care Promotion: independence encouraged BADL personal routines maintained Problem: Wound Goal: Optimal Functional Ability Outcome: Ongoing, Progressing Intervention: Optimize Functional Ability Flowsheets (Taken 12/18/2024 1154) Activity Management: activity adjusted per tolerance Activity Assistance Provided: assistance, 1 person Problem: Infection Goal: Absence of Infection Signs and Symptoms Outcome: Ongoing, Progressing Intervention: Prevent or Manage Infection Flowsheets (Taken 12/18/2024 1154) Fever Reduction/Comfort Measures: lightweight bedding lightweight clothing Isolation Precautions: precautions maintained Problem: Diabetes Goal: Optimal Functional Ability Outcome: Ongoing, Progressing Intervention: Optimize Functional Ability Flowsheets (Taken 12/18/2024 1154) Activity Management: activity adjusted per tolerance Activity Assistance Provided: assistance, 1 person Self-Care Promotion: independence encouraged BADL personal routines maintained Problem: VTE (Venous Thromboembolism) Goal: Tissue Perfusion Outcome: Ongoing, Progressing Intervention: Optimize Tissue Perfusion Flowsheets (Taken 12/18/2024 1154) Bleeding Precautions: blood pressure closely monitored * Procedures - Cynthia Joreg, RN - 12/18/2024 9:58 AM EDTAssociated Order(s): Insert peripheral IV Insert peripheral IV Performed by: Cynthia Jorge, RN Authorized by: Lisa Lloyd DO Hand hygiene: Hand hygiene performed prior to insertion Inserted using aseptic techniques: Yes Preparation: Skin prepped with chg Orientation: Right and upper Location: Arm Catheter placed: Peripheral IV Catheter size: 20g/2.00in Line Technique: Ultrasound Guidance Number of attempts: 1 IV flushes: Without difficulty and positive blood return noted and IV luer locked Patient tolerance: There were no complications and patient tolerated the procedure well Patient comfort measures used: Distraction and position of comfort IV site covered with: Transparent semipermeable dressing Education provided to: Patient Comments: All pertinent images were uploaded to PACS. * Progress Notes - Lisa Lloyd DO - 12/18/2024 9:09 AM EDT Images from the original note were not included. Subjective Patient was seen and examined at bedside. Her sister is at bedside. She feels ok,discussed blood transfusion today. Pain is controlled. We discussed the plan of care and questions were answered. Medications Current Scheduled Medications[1] Current Continuous Medications[2] Current PRN Medications[3] Objective Last Recorded Vitals Blood pressure 136/74, pulse 67, temperature 36.7 ??C (98.1 ??F), temperature source Oral, resp. rate 21, height 1.702 m (5' 7.01 ), weight 110 kg (241 lb 6.5 oz), SpO2 99%. Intake/Output Summary (Last 24 hours) at 12/18/2024 0909 Last data filed at 12/18/2024 0100 Gross per 24 hour Intake 50 ml Output 0 ml Net 50 ml Physical Exam General: awake and alert, resting in NAD HEENT: NC, bandage on skull is CDI CV: RRR, no MRG Lungs: scattered rhonchi, on 2L o2 Abd: soft, nontender Ext: moving all ext Neuro: A&O with no focal deficit Psych: appropriate mood and affect LABS Results from last 7 days Lab Units 12/18/24 0516 12/17/24 2159 12/17/24 1522 12/16/24 0552 WBC 10*3/uL 7.00 -- 8.32 9.08 HEMOGLOBIN g/dL 6.9* 6.9* 7.1* 8.0* HEMATOCRIT % 22.4* 22.2* 23.1* 25.6* PLATELETS 10*3/uL 201 -- 202 187 Results from last 7 days Lab Units 12/18/24 0516 12/17/24 1522 12/16/24 0552 12/15/24 2318 SODIUM mmol/L 146* 142 138 140 POTASSIUM mmol/L 3.8 3.7 3.8 3.9 CHLORIDE mmol/L 109* 105 100 100 CO2 mmol/L 26 27 24 28 BUN mg/dL 8 11 18 19 CREATININE mg/dL 1.05 1.14* 1.50* 1.48* CALCIUM mg/dL 8.8* 8.7* 9.0 9.1 BILIRUBIN TOTAL mg/dL 0.3 0.3 -- 0.5 ALKALINE PHOSPHATASE U/L 75 75 -- 85 ALT U/L 11 10 -- 8* AST U/L 23 17 -- 16 GLUCOSE mg/dL 130* 133* 168* 132* IMAGING Assessment/Plan Principal Problem: Dyspnea Active Problems: Morbid obesity with BMI of 40.0-44.9, adult (CMS/HCC) Small cell lung cancer (CMS/HCC) Anemia COPD (chronic obstructive pulmonary disease) (CMS/HCC) Diabetes mellitus (CMS/HCC) Type 2 diabetes mellitus without complications Pneumonia Pulmonary embolism Incisional infection This is a 64 y/o with 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 Acute bilateral segmental and subsegmental pulmoary emboli Acute on chronic hypoxic respiratory failure 2/2 above and with concern for pneumonia Recurrent small cell lung cancer with resected oligmetastasis 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 concerning for pneumonia vs local recurrence of SCLC -oncology following, appreciate input -heparin is held until 12/18 per neurosurgery > today 12/18 ok to resume, transfusing 1 unit prbc then restarting, trend hgb -continue abx appreciate ongoing ID recommendations -post op oncology requesting neurosurgery input regarding time to wait prior to chemotherapy -blood and sputum cx pending, monitor procal/crp -continue vanc, cefepime, flagyl per ID with therapeutic drug monitoring -acute on chronic anemia noted- multifactorial, transfuse 1 unit prbc and trend hgb, transfuse for hgb <7 Craniotomy site infection -neurosugery following -underwent washout on 12/16 -ok for diet -heparin held per neurosurgery until 12/18 > can resume today -prn pain control -continue abx, ID following Stage III SCLC w/ mets to brain s/p craniotomy and WBRT - Chemo: Carboplatin/Etopside daily, Atezolizumab q.21 days - last chemo: 11/10/24 - Radiation Therapy: 10/24/24-11/07/24, 3,000 cGY - MRI 12/02 : Postsurgical changes related to left parietal craniotomy for resection of an extra-axial metastasis. small amount of intraparenchymal hemorrhage in the perirolandic region along the resection margin. Unchanged abundant dural thickening and enhancement subjacent to the craniotomy site which could reflect a combination of posttreatment changes and reactive changes. A superimposed infectious process could be considered in the appropriate clinical setting. Residual cleft of enhancing tissue along the left falx which may reflect residual or recurrent tumor. - Reportedly discuss with Neurology on previous admission and there was no surgical recommendation CTA Pul 12/15- interval increase in right upper paramediastinal lung mass, now measuring 39 x 24 x 23 mm; Increased size of right upper paratracheal lymph node raises concern for metastatic involvement. -discussed with Dr. Felton personally, not clear if disease in lung is progressing. Post op need neurosurgery input regarding minimum recommended time to wait before restarting chemotherapy Afib w RVR, RVR resolved - Follows [facility] - hx of typical aflutter s/p CTI flutter ablation - home meds: Xarelto on her last admission, hold per NSGY for recent SAH/SH - continue metoprolol 25 mg three times a day; titrate as tolerated Hx of Acute Kidney Injury (Cr improving) - JORGE Noted on last admission; after presenting with Cr of 2.81 with no clear etiology -sCr: 1.48 (H), (Baseline sCr 0.61- 0.91), BUN: 19, eGFR: 39.4, -Estimated Creatinine Clearance: 49.8 mL/min (A) (by C-G formula based on SCr of 1.48 mg/dL (H)). - Renal dose medications - Strict I&O - Repeat BMP in the AM - Renal US on last admission without hydronephrosis Seizure - Treated with [facility] inpatient, no refill history on discharge - discussed with pharmacy Type II diabetes with hyperglycemia - Continue home insulin regimen with lantus - FSBS AC/HS with correctional insulin - Consistent carb diet HFpEF does not appear in exacerbation - Last echo on 12/08/2024 noted LVEF of 52%; with elevated filling pressure - home meds: lasix, spiralactone, htcz-triamterene, metoprolol, losartan - Holding home antihypertensives in setting of low BP Normocytic Normochromic Anemia/Anemia of Chronic Disease HTN - meds as above HLD - atorvastatin, COPD - July 2023 PFT Moderate hyperinflation suggestive underlying obstructive disease. Nonspecific spirometry. Moderate reduced diffusion capacity DLCO 41%. - Home O2 requirement: 3L - home meds: Breztri, cetirizine, montelukast, - Spiriva plus dulera -DuoNebs q6 PRN -Titrate O2NC to SpO2 88-92% GERD - protonix, tums Chronic hypomagnesemia - Mag oxide Anxiety/Depression - hydroxyzine, fluoxetine Neuropathy/Chronic Pain -gabapentin Chemo induced Nausea and Vomiting - Zofran and Compazine Obesity - BMI 39.02 kg/m2 - complicates all aspects of care Diet - Regular Code status - Full Code DVT prophylaxis - SCDs only > resuming heparin Discharge planning - pending clinical course Lisa Lloyd DO Department of Internal Medicine Division of Hospital Medicine Epic Chat Preferred Pager: [phone] 12/18/2024 [1] atorvastatin, 40 mg, Oral, q PM cefepime, 2 g, Intravenous, q12h cetirizine, 10 mg, Oral, Daily FLUoxetine, 40 mg, Oral, Daily insulin glargine-yfgn, 5 Units, Subcutaneous, Nightly levETIRAcetam, 1,000 mg, Oral, BID metoprolol tartrate, 25 mg, Oral, TID metroNIDAZOLE, 500 mg, Oral, q8h Tiotropium Norman Monohydrate, 2 puff, Inhalation, Daily And mometasone-formoterol, 2 puff, Inhalation, BID pantoprazole, 40 mg, Oral, Daily sodium chloride, 10 mL, Intravenous, q12h vancomycin, 1,500 mg, Intravenous, q24h [2] [Held by provider] heparin - COM Adult Low Dose Protocol - MAR calculator by anti-Xa, 0-35 Units/kg/hr, Last Rate: Stopped (12/16/24 0743) [3] PRN medications: acetaminophen, glucose OR dextrose 10 % OR dextrose 10 % OR glucagon (human recombinant), diphenhydrAMINE, ipratropium- albuterol, oxyCODONE OR oxyCODONE, prochlorperazine, [COMPLETED] Insert peripheral IV AND Saline lock IV AND sodium chloride AND sodium chloride * Progress Notes - Crystal Vuong MD - 12/18/2024 8:30 AM EDT Neurosurgery Consult Follow-up Note History, exam, and imaging review with attending and discussed on rounds this morning. Teresa Rivera is a 64 y.o. female with past medical history of Stage III small- cell lung cancer with metastasis to the brain S/ P craniotomy, recent dramatic SAH & SDH s/p Craniectomy 12/16 Exam: GCS (EMV): 465 Awake, alert, oriented Follows commands appropriately Speech clear PERRL, EOMI ESQUEDA symmetrically, no drift Strength 5/5 throughout Sensation intact - NSGY will follow ORcx - okay to resume Hep gtt today -Continue broad spec abx - Rest of care per primary team - Neurosurgery will continue to follow for ORCx - Thank you for allowing us to participate in the care of this patient. Please call with any questions or concerns. [phone] Crystal Vuong MD Resident Physician, PGY-2 Department of Neurosurgery [facility] Cosigned by Abhialsh Bangura MD at 12/19/2024 9:20 AM EDT Associated attestation - Abhilash Bangura MD - 12/19/2024 9:20 AM EDT I saw and evaluated the patient with the resident/fellow. I discussed the case with the resident/fellow and agree with the findings and plan as documented. * Care Plan - Mitzi Porter RN - 12/18/2024 1:29 AM EDT Problem: Adult Inpatient Plan of Care Goal: Plan of Care Review Outcome: Ongoing, Progressing Flowsheets (Taken 12/18/2024112) Progress: no change Plan of Care Reviewed With: patient Goal: Patient-Specific Goal (Individualized) Outcome: Ongoing, Progressing Flowsheets (Taken 12/18/2024112) Patient/Family-Specific Goals (Include Timeframe): Patient will remain free of falls/injury this shift. Individualized Care Needs: safety Anxieties, Fears or Concerns: denies Goal: Absence of Hospital-Acquired Illness or Injury Outcome: Ongoing, Progressing Intervention: Identify and Manage Fall Risk Flowsheets (Taken 12/18/2024112) Safety Promotion/Fall Prevention: activity supervised assistive device/personal items within reach clutter-free environment maintained fall prevention program maintained nonskid shoes/slippers when out of bed room organization consistent safety round/check completed Intervention: Prevent Skin Injury Flowsheets (Taken 12/18/2024112) Body Position: weight shifting Skin Protection: silicone foam dressing in place Goal: Optimal Comfort and Wellbeing Outcome: Ongoing, Progressing Intervention: Provide Person-Centered Care Flowsheets (Taken 12/18/2024112) Trust Relationship/Rapport: care explained choices provided reassurance provided thoughts/feelings acknowledged questions answered Problem: Fall Injury Risk Goal: Absence of Fall and Fall-Related Injury Outcome: Ongoing, Progressing Intervention: Identify and Manage Contributors Flowsheets (Taken 12/18/2024112) Medication Review/Management: medications reviewed Self-Care Promotion: BADL personal objects within reach BADL personal routines maintained adaptive equipment use encouraged Intervention: Promote Injury-Free Environment Flowsheets (Taken 12/18/2024112) Safety Promotion/Fall Prevention: activity supervised assistive device/personal items within reach clutter-free environment maintained fall prevention program maintained nonskid shoes/slippers when out of bed room organization consistent safety round/check completed Problem: Wound Goal: Optimal Coping Outcome: Ongoing, Progressing Intervention: Support Patient and Family Response Flowsheets (Taken 12/18/2024112) Supportive Measures: active listening utilized self-care encouraged Family/Support System Care: involvement promoted Goal: Optimal Functional Ability Outcome: Ongoing, Progressing Intervention: Optimize Functional Ability Flowsheets (Taken 12/18/2024112) Activity Management: activity adjusted per tolerance up to bedside commode Activity Assistance Provided: assistance, 1 person Goal: Absence of Infection Signs and Symptoms Outcome: Ongoing, Progressing Intervention: Prevent or Manage Infection Flowsheets (Taken 12/18/2024112) Infection Management: aseptic technique maintained Fever Reduction/Comfort Measures: lightweight bedding lightweight clothing Isolation Precautions: contact precautions maintained Goal: Improved Oral Intake Outcome: Ongoing, Progressing Intervention: Promote and Optimize Oral Intake Flowsheets (Taken 12/18/2024112) Nutrition Interventions: diet adjusted Goal: Optimal Pain Control and Function Outcome: Ongoing, Progressing Intervention: Prevent or Manage Pain Flowsheets (Taken 12/18/2024112) Sleep/Rest Enhancement: awakenings minimized family presence promoted regular sleep/rest pattern promoted Goal: Skin Health and Integrity Outcome: Ongoing, Progressing Intervention: Optimize Skin Protection Flowsheets (Taken 12/18/2024112) Activity Management: activity adjusted per tolerance up to bedside commode Pressure Reduction Techniques: frequent weight shift encouraged Head of Bed (HOB) Positioning: HOB elevated Goal: Optimal Wound Healing Outcome: Ongoing, Progressing Intervention: Promote Wound Healing Flowsheets (Taken 12/18/2024112) Sleep/Rest Enhancement: awakenings minimized family presence promoted regular sleep/rest pattern promoted Problem: Infection Goal: Absence of Infection Signs and Symptoms Outcome: Ongoing, Progressing Intervention: Prevent or Manage Infection Flowsheets (Taken 12/18/2024112) Infection Management: aseptic technique maintained Fever Reduction/Comfort Measures: lightweight bedding lightweight clothing Isolation Precautions: contact precautions maintained Problem: Diabetes Goal: Optimal Coping Outcome: Ongoing, Progressing Intervention: Support Wellbeing and Self-Management Success Flowsheets (Taken 12/18/2024112) Supportive Measures: active listening utilized self-care encouraged Family/Support System Care: involvement promoted Goal: Optimal Functional Ability Outcome: Ongoing, Progressing Intervention: Optimize Functional Ability Flowsheets (Taken 12/18/2024112) Activity Management: activity adjusted per tolerance up to bedside commode Activity Assistance Provided: assistance, 1 person Self-Care Promotion: BADL personal objects within reach BADL personal routines maintained adaptive equipment use encouraged Goal: Blood Glucose Level Within Target Range Outcome: Ongoing, Progressing Intervention: Optimize Glycemic Control Flowsheets (Taken 12/18/2024112) Hyperglycemia Management: blood glucose monitored Goal: Minimize Hypoglycemia Risk Outcome: Ongoing, Progressing Intervention: Minimize and Manage Hypoglycemia Flowsheets (Taken 12/18/2024112) Hypoglycemia Management: blood glucose monitored Problem: Pneumonia Goal: Fluid Balance Outcome: Ongoing, Progressing Intervention: Monitor and Manage Fluid Balance Flowsheets (Taken 12/18/2024112) Fluid/Electrolyte Management: fluids provided Goal: Absence of Infection Signs and Symptoms Outcome: Ongoing, Progressing Intervention: Prevent Infection Progression Flowsheets (Taken 12/18/2024112) Infection Management: aseptic technique maintained Fever Reduction/Comfort Measures: lightweight bedding lightweight clothing Isolation Precautions: contact precautions maintained Goal: Effective Oxygenation and Ventilation Outcome: Ongoing, Progressing Intervention: Promote Airway Secretion Clearance Flowsheets (Taken 12/18/2024112) Activity Management: activity adjusted per tolerance up to bedside commode Cough And Deep Breathing: done independently per patient Intervention: Optimize Oxygenation and Ventilation Flowsheets (Taken 12/18/2024112) Airway/Ventilation Management: oxygen therapy provided Head of Bed (HOB) Positioning: HOB elevated Problem: VTE (Venous Thromboembolism) Goal: Tissue Perfusion Outcome: Ongoing, Progressing Intervention: Optimize Tissue Perfusion Flowsheets (Taken 12/18/2024112) Bleeding Precautions: blood pressure closely monitored * Procedures - Roberto Lobato RN - 12/17/2024 9:45 PM EDTAssociated Order(s): Insert peripheral IV Insert peripheral IV Performed by: Roberto Lobato RN Authorized by: Gordy Purvis APRN, DNP Hand hygiene: Hand hygiene performed prior to insertion Inserted using aseptic techniques: Yes Preparation: Skin prepped with chg Orientation: Left and upper Location: Arm Catheter placed: Peripheral IV Catheter size: 20g/1.16in Line Technique: Ultrasound Guidance Number of attempts: 1 IV flushes: Without difficulty and positive blood return noted and IV luer locked Patient tolerance: Patient tolerated the procedure well and there were no complications Patient comfort measures used: Distraction and position of comfort IV site covered with: Transparent semipermeable dressing * Nursing Note - Sasha Hussein - 12/17/2024 7:04 PM EDT Pt had vanc ordered that was started at 1630, vanc was 2.5hr run, ran about 2hrs when pt started complaining of itching. Vanc stopped and IV site assessed. Insertion site looks normal but around it it slightly pink, unable to tell if d/t scratching or reaction as pt was actively scratching. madeaware as unable to reach any pharmacists. MD and Rnretimed next abx doses and ordered benadryl, states to give benadryl and give a little bit of time and re-try finishing vanc. VAT consuled to place new PIV or 2 as other PIV was leaking (pt is oncology / chemo and difficult veins). * Care Plan - Sasha Hussein - 12/17/2024 5:52 PM EDT Problem: Fall Injury Risk Goal: Absence of Fall and Fall-Related Injury Outcome: Ongoing, Progressing Intervention: Identify and Manage Contributors Flowsheets (Taken 12/17/2024 1751) Medication Review/Management: medications reviewed Self-Care Promotion: adaptive equipment use encouraged Problem: Pneumonia Goal: Effective Oxygenation and Ventilation Outcome: Ongoing, Progressing Intervention: Promote Airway Secretion Clearance Flowsheets (Taken 12/17/2024 0800) Activity Management: activity adjusted per tolerance * Consults - Cynthia Jorge RN - 12/17/2024 3:22 PM EDT VAT consulted for lab draw. Ordered labs were collected with ultrasound guidance from Left AC (Brachial) X 1 attempt. Lab tubes were properly labeled, collected in epic and sent to lab. * Progress Notes - Zachary Brown - 12/17/2024 11:38 AM EDT Neurosurgery Consult Follow-up Note History, exam, and imaging review with attending and discussed on rounds this morning. Teresa Rivera is a 64 y.o. female with past medical history of Stage III small- cell lung cancer with metastasis to the brain S/ P craniotomy, recent dramatic SAH & SDH s/p Craniectomy 12/16 Exam: GCS (EMV): 465 Awake, alert, oriented Follows commands appropriately Speech clear PERRL, EOMI ESQUEDA symmetrically, no drift Strength 5/5 throughout Sensation intact - POD1 - NSGY will follow ORcx - okay to resume Hep gtt tomorrow (12/18) - Rest of care per primary team - Neurosurgery will continue to follow - Thank you for allowing us to participate in the care of this patient. Please call with any questions or concerns. [phone] Zachary Brown MD Resident Physician, PGY-2 Department of neurosurgery Pager: [phone] Cosigned by Abhilash Bangura MD at 12/19/2024 9:21 AM EDT Associated attestation - Abhilash Bangura MD - 12/19/2024 9:21 AM EDT I saw and evaluated the patient with the resident/fellow. I discussed the case with the resident/fellow and agree with the findings and plan as documented. * Consults - Lisa Felton MD - 12/17/2024 10:21 AM EDTAssociated Order(s): Inpatient consult to Oncology Inpatient consult to Oncology Consult performed by: Lisa Felton MD Consult ordered by: Lisa Lloyd DO Medical Oncology Consult Note Date: 12/16/24 Reason for Consult: scc metastatic with progression Assessment/Plan Teresa Rivera is 64 y.o. 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 Summary of recommendations: - We defer anticoagulation recommendations to neurosurgery. If safe to start anticoagulation in setting of her ICH 1 month ago, we have no qualms with starting either. - It's not clear that her disease in her lung is progressing. Rather, the changes in her R lung appear more consistent with pneumonia than lung cancer. - We will hold her next cycle of chemotherapy in light of her debilitation and active infection. Postop and once her infection is controlled, we'd like neurosurgery input as to the minimum recommended time to wait before restarting chemotherapy. - Will ensure outpatient medical oncology follow up is scheduled when appropriate. 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 Recommendations were communicated to the primary service. Please call with additional questions or concerns. History of Present Illness She now presents with purulent drainage fro her craniotomy site. Review of Systems Review of Systems Constitutional: Positive for appetite change and fatigue. Negative for activity change. Cardiovascular: Negative for chest pain. Gastrointestinal: Positive for nausea. Skin: Negative for rash. Allergic/Immunologic: Positive for immunocompromised state. Neurological: Positive for headaches. Hematological: Does not bruise/bleed easily. Psychiatric/Behavioral: Negative for confusion. -- --Oncology History--- initially diagnosed with [id number], stage IIIA limited stage of the right [...] 09/08/2023 - 11/13/2023: Carboplatin/etoposide x 4 cycles - patient has been off tx since [...] invasion causing near occlusion of the sinus -09/01 CT CAP for cancer staging shows no metastatic disease - 09/05 s/p left frontal craniotomy - Pathology of brain mass: Small-cell lung cancer - patient discharged on 09/09 with Keppra 500 mg twice daily and tapering dose of dexamethasone. - C1 carbo/etop/atezo 10/04 - WBRT 10/24-11/01 - C2 carbo/etop/atezo 11/08 - 11/29: admission fo new seizure like activity in setting of stopping keppra. MRI brain shows no changes, persistent enhancing tissue along the left falx which may reflect residual or recurrent tumor. Past Medical, Surgical, Family, and Social History: Reviewed by me; any relevant updates made in [facility]. Social History Lives in [place]. Former smoker. Allergies Reviewed by me; any relevant updates made in [facility]. Medications Current Medications[1] Physical Exam Vitals: 12/16/24 0830 BP: 99/53 Pulse: 80 Resp: 26 Temp: 36.6 ??C (97.8 ??F) SpO2: 97% Performance Status 1: Restricted in physically strenuous activity but ambulatory and able to do light work Gen: NAD. Comfortable. Well-appearing pleasant woman, lively and animated. Cushingoid. Eyes: No scleral icterus, normal conjunctivae HENT: Hearing normal, dentition absent, Mucus membranes are moist. Neck: supple, normal ROM. CV: WWP Resp: effort normal, breathing comfortably on supplemental O2 GI: Abdomen is grossly nondistended MSK: No clubbing or cyanosis. Normal muscle tone. Skin: Warm, dry, no rash, no erythema, not diaphoretic, no pallor Neuro: No gross neurologic deficits. L craniectomy site noted. Psych: A&O x3, mood and affect normal, judgment and insight appear normal. Labs, Imaging, and Microbiology Reviewed personally in [facility]. Notable as discussed in Assessment and Plan. [1] Current Facility-Administered Medications: atorvastatin (Lipitor) tablet 40 mg, 40 mg, Oral, q PM, Gordy Purvis APRN, DNP cetirizine (ZyrTEC) tablet 10 mg, 10 mg, Oral, Daily, Gordy Purvis RIPENING ROOM OPERATOR, VINCENZO glucose (Glutose) 40 % oral gel 15-30 grams of glucose, 15-30 grams of glucose, Sublingual, q15 minPRN OR dextrose 10 % (D10W) bolus 125 mL, 125 mL, Intravenous, q15 min PRN OR dextrose 10 %(D10W) bolus 250 mL, 250 mL, Intravenous, q15 min PRN OR glucagon (human recombinant) injection1 mg, 1 mg, Intramuscular, q15 min PRN, Gordy Purvis APRN, IVNCENZO [Held by provider] heparin 25,000 units/250 mL (100 unit/mL) infusion - Adult LOW DOSE Protocol, 0-35 Units/kg/hr, Intravenous, Titrated, Jimmy Jones, DO, Stopped at 12/16/24 0743 insulin glargine-yfgn 100 UNIT/ML injection 5 Units, 5 Units, Subcutaneous, Nightly, Gordy Purvis APRN, DNP ipratropium-albuterol (Duo-Neb) 0.5-2.5 mg/3 mL nebulizer solution 3 mL, 3 mL, Nebulization, q6h PRN, Gordy Purvis APRN, VINCENZO magnesium sulfate IVPB 4 g, 4 g, Intravenous, q4h, MadujibeGordy ni APRN, DNP, Last Rate: 25 mL/hr at 12/16/24 0826, 4 g at 12/16/24 0826 metoprolol tartrate (Lopressor) tablet 25 mg, 25 mg, Oral, TID, Gordy Purvis APRN, DNP Tiotropium Norman Monohydrate (Spiriva Respimat) 2.5 MCG/ACT inhaler 2 puff, 2 puff, Inhalation, Daily, 2 puff at 12/16/24 0842 AND mometasone-formoterol (Dulera 200) 200-5 MCG/ACT inhaler 2 puff, 2 puff, Inhalation, BID, Gordy Purvis APRN, DNP, 2 puff at 12/16/24 0845 pantoprazole (Protonix) EC tablet 40 mg, 40 mg, Oral, Daily, Gordy Purvis APRN, DNP piperacillin-tazobactam (Zosyn) 4.5 g in sodium chloride 0.9% 100 mL IVPB (vial adapter required), 4.5 g, Intravenous, q6h, Gordy Purvis APRN, DNP, Last Rate: 36.7 mL/hr at 12/16/24 0825, 4.5 g at 12/16/24 0825 prochlorperazine (Compazine) tablet 10 mg, 10 mg, Oral, q6h PRN, Gordy Purvis APRN, DNP Insert peripheral IV, , , Once AND Saline lock IV, , , Once AND sodium chloride 0.9 % flush10 mL, 10 mL, Intravenous, q12h, 10 mL at 12/16/24 0751 AND sodium chloride 0.9 % flush 10 mL, 10 mL, Intravenous, PRN, Gordy Purvis APRN, DNP Current Outpatient Medications: acetaminophen (Tylenol) 325 MG [...] by mouth every evening., Disp: , Rfl: Wshwwxs-Uwiitiveusv-Tibuoazmjz (Breztri Aerosphere) 160-9-4.8 MCG/ACT aerosol, Inhale 2 [...] a day as needed., Disp: , Rfl: [Paused] insulin glargine (Lantus SoloStar) 100 UNIT/ML injection pen, Inject 25 Units under the skin nightly., Disp: , Rfl: levETIRAcetam (Keppra) 1000 MG tablet, Take 1 tablet by mouth 2 times a day., Disp: 60 tablet, Rfl:5 lidocaine (Xylocaine) 5 % ointment, Apply 2 times a day., Disp: 30 g, Rfl: 0 magic mouthwash BLM (FIRST-Mouthwash) [...] meals., Disp: , Rfl: metoprolol tartrate (Lopressor) 25 MG tablet, Take 1 tablet by mouth 3 times a day., Disp: 90 tablet, Rfl: 5 montelukast (Singulair) 10 MG tablet, Take 1 tablet by mouth nightly., Disp: , Rfl: mupirocin (Bactroban) 2 % ointment, Apply on head 2 times a day (Patient taking differently: Apply 1 Application topically 2 times a day. Apply on head 2 times a day), Disp: 22 g, Rfl: 0 [Paused] NovoLOG FLEXPEN 100 UNIT/ML injection pen, Sliding scale three times a day with corrections and meals; BS 150-199=2units; BS 200-249=4units; BS 250- 229=6units; 300-349=8 units; 350-399=10 units; anything greater than 399=12units max of 36units daily, Disp: , Rfl: nystatin (Mycostatin) 826432 UNIT/GM powder, Apply on bottom 2 times a day, Disp: 30 g, Rfl: 0 ondansetron ODT (Zofran-ODT) 4 MG disintegrating tablet, Dissolve 1 tablet on the tongue every 6 hours as needed for nausea or vomiting., Disp: 20 tablet, Rfl: 0 pantoprazole (Protonix) 40 MG EC tablet, Take 1 tablet by mouth daily. Do not crush, chew, or split., Disp: , Rfl: pen needle, diabetic 31G X 5 MM misc, Use as directed with insulin pen., Disp: 100 each, Rfl: 11 polyethylene glycol (Miralax) 17 g packet, Take 17 g by mouth 2 times a day as needed (constipation)., Disp: 60 packet, Rfl: 5 prochlorperazine (Compazine) 10 MG tablet, Take 1 [...] 2 times a day., Disp: , Rfl: [Paused] SITagliptin (Januvia) 50 MG tablet, Take 1 tablet by mouth every morning., Disp: , Rfl: [Paused] triamterene-hydrochlorothiazide (Maxzide-25) 37.5-25 MG tablet, Take 1 tablet by mouth every morning., Disp: , Rfl: Vitamin B-12 ER 1000 MCG tablet controlled-release, Take 1 tablet by mouth Daily., Disp: , Rfl: Cosigned by Ozzie Vazquez MD at 12/17/2024 3:06 PM EDT Associated attestation - Ozzie Vazquez MD - 12/17/2024 3:06 PM EDT I saw and evaluated the patient with the resident/fellow. I discussed the case with the resident/fellow and agree with the findings and plan as documented. * Progress Notes - Lisa Lloyd DO - 12/17/2024 8:38 AM EDT Images from the original note were not included. Subjective Patient was seen and examined at bedside. Her sister is at bedside. She feels ok, reports headache and pain medication recently given per RN. We discussed the plan of care and questions were answered. Medications Current Scheduled Medications[1] Current Continuous Medications[2] Current PRN Medications[3] Objective Last Recorded Vitals Blood pressure (!) 142/61, pulse 69, temperature 36.5 ??C (97.7 ??F), resp. rate 12, height 1.702 m(5' 7.01 ), weight 113 kg (248 lb 14.4 oz), SpO2 95%. Intake/Output Summary (Last 24 hours) at 12/17/2024 0839 Last data filed at 12/16/2024 2300 Gross per 24 hour Intake 800 ml Output -- Net 800 ml Physical Exam General: awake and alert, resting in NAD HEENT: NC, bandage on skull with scant drainage noted CV: RRR, no MRG Lungs: scattered rhonchi, on 2L o2 Abd: soft, nontender Ext: moving all ext Neuro: A&O with no focal deficit Psych: appropriate mood and affect LABS Results from last 7 days Lab Units 12/16/24 0552 12/15/24 2318 WBC 10*3/uL 9.08 9.58 HEMOGLOBIN g/dL 8.0* 7.5* HEMATOCRIT % 25.6* 24.7* PLATELETS 10*3/uL 187 206 Results from last 7 days Lab Units 12/16/24 0552 12/15/24 2318 SODIUM mmol/L 138 140 POTASSIUM mmol/L 3.8 3.9 CHLORIDE mmol/L 100 100 CO2 mmol/L 24 28 BUN mg/dL 18 19 CREATININE mg/dL 1.50* 1.48* CALCIUM mg/dL 9.0 9.1 BILIRUBIN TOTAL mg/dL -- 0.5 ALKALINE PHOSPHATASE U/L -- 85 ALT U/L -- 8* AST U/L -- 16 GLUCOSE mg/dL 168* 132* IMAGING Assessment/Plan Principal Problem: Dyspnea Active Problems: Morbid obesity with BMI of 40.0-44.9, adult ([facility]) Small cell lung cancer ([facility]) Anemia COPD (chronic obstructive pulmonary disease) ([facility]) Diabetes mellitus ([facility]) Type 2 diabetes mellitus without complications Pneumonia Pulmonary embolism Incisional infection This is a 64 y/o with 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 Acute bilateral segmental and subsegmental pulmoary emboli Acute on chronic hypoxic respiratory failure 2/2 above and with concern for pneumonia Recurrent small cell lung cancer with resected oligmetastasis 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 concerning for pneumonia vs local recurrence of SCLC -oncology following, appreciate input -heparin is held until 12/18 per neurosurgery -continue abx appreciate ongoing ID recommendations -post op oncology requesting neurosurgery input regarding time to wait prior to chemotherapy -blood and sputum cx pending, monitor procal/crp -continue vanc, cefepime, flagyl per ID with therapeutic drug monitoring Craniotomy site infection -neurosugery following -underwent washout on 12/16 -ok for diet -heparin held per neurosurgery until 12/18 -prn pain control -continue abx, ID following Stage III SCLC w/ mets to brain s/p craniotomy and WBRT - Chemo: Carboplatin/Etopside daily, Atezolizumab q.21 days - last chemo: 11/10/24 - Radiation Therapy: 10/24/24-11/07/24, 3,000 cGY - MRI 12/02 : Postsurgical changes related to left parietal craniotomy for resection of an extra-axial metastasis. small amount of intraparenchymal hemorrhage in the perirolandic region along the resection margin. Unchanged abundant dural thickening and enhancement subjacent to the craniotomy site which could reflect a combination of posttreatment changes and reactive changes. A superimposed infectious process could be considered in the appropriate clinical setting. Residual cleft of enhancing tissue along the left falx which may reflect residual or recurrent tumor. - Reportedly discuss with Neurology on previous admission and there was no surgical recommendation CTA Pul 12/15- interval increase in right upper paramediastinal lung mass, now measuring 39 x 24 x 23 mm; Increased size of right upper paratracheal lymph node raises concern for metastatic involvement. -discussed with Dr. Felton personally, not clear if disease in lung is progressing. Post op need neurosurgery input regarding minimum recommended time to wait before restarting chemotherapy Afib w RVR, RVR resolved - Follows Cardiology - hx of typical aflutter s/p CTI flutter ablation - home meds: Xarelto on her last admission, hold per NSGY for recent SAH/SH - continue metoprolol 25 mg three times a day; titrate as tolerated Hx of Acute Kidney Injury (Cr improving) - JORGE Noted on last admission; after presenting with Cr of 2.81 with no clear etiology -sCr: 1.48 (H), (Baseline sCr 0.61- 0.91), BUN: 19, eGFR: 39.4, -Estimated Creatinine Clearance: 49.8 mL/min (A) (by C-G formula based on SCr of 1.48 mg/dL (H)). - Renal dose medications - Strict I&O - Repeat BMP in the AM - Renal US on last admission without hydronephrosis Seizure - [facility], no refill history on discharge - discussed with pharmacy Type II diabetes with hyperglycemia - Continue home insulin regimen with lantus - FSBS AC/HS with correctional insulin - Consistent carb diet HFpEF does not appear in exacerbation - Last echo on 12/08/2024 noted LVEF of 52%; with elevated filling pressure - home meds: lasix, spiralactone, htcz-triamterene, metoprolol, losartan - Holding home antihypertensives in setting of low BP Normocytic Normochromic Anemia/Anemia of Chronic Disease HTN - meds as above HLD - atorvastatin, COPD - July 2023 PFT Moderate hyperinflation suggestive underlying obstructive disease. Nonspecific spirometry. Moderate reduced diffusion capacity DLCO 41%. - Home O2 requirement: 3L - home meds: Breztri, cetirizine, montelukast, - Spiriva plus dulera -DuoNebs q6 PRN -Titrate O2NC to SpO2 88-92% GERD - protonix, tums Chronic hypomagnesemia - Mag oxide Anxiety/Depression - hydroxyzine, fluoxetine Neuropathy/Chronic Pain -gabapentin Chemo induced Nausea and Vomiting - Zofran and Compazine Obesity - BMI 39.02 kg/m2 - complicates all aspects of care Diet - Regular Code status - Full Code DVT prophylaxis - SCDs only Discharge planning - pending clinical course Lisa Lloyd DO Department of Internal Medicine Division of Hospital Medicine Epic Chat Preferred Pager: [phone] 12/17/2024 [1] atorvastatin, 40 mg, Oral, q PM cefepime, 2 g, Intravenous, q12h cetirizine, 10 mg, Oral, Daily FLUoxetine, 40 mg, Oral, Daily insulin glargine-yfgn, 5 Units, Subcutaneous, Nightly levETIRAcetam, 1,000 mg, Oral, BID metoprolol tartrate, 25 mg, Oral, TID metroNIDAZOLE, 500 mg, Oral, q8h Tiotropium Norman Monohydrate, 2 puff, Inhalation, Daily And mometasone-formoterol, 2 puff, Inhalation, BID pantoprazole, 40 mg, Oral, Daily sodium chloride, 10 mL, Intravenous, q12h vancomycin, 2,500 mg, Intravenous, Once vancomycin (Vancocin) intermittent dosing, 1 each, Intravenous, See admin instructions [2] [Held by provider] heparin - COM Adult Low Dose Protocol - MAR calculator by anti-Xa, 0-35 Units/kg/hr, Last Rate: Stopped (12/16/24 0743) [3] PRN medications: acetaminophen, glucose OR dextrose 10 % OR dextrose 10 % OR glucagon (human recombinant), ipratropium-albuterol, oxyCODONE OR oxyCODONE, prochlorperazine, Insert peripheral IV AND Saline lock IV AND sodium chloride AND sodium chloride * Care Plan - Catherine Davis RN - 12/16/2024 11:31 PM EDT Problem: Adult Inpatient Plan of Care Goal: Plan of Care Review 12/16/20242330 by Catherine Davis RN Outcome: Ongoing, Progressing 12/16/20242327 by Catherine Davis RN Outcome: Ongoing, Progressing Flowsheets (Taken 12/16/20242327) Progress: no change Plan of Care Reviewed With: patient sibling Goal: Patient-Specific Goal (Individualized) 12/16/20242330 by Catherine Davis RN Outcome: Ongoing, Progressing 12/16/20242327 by Catherine Davis RN Outcome: Ongoing, Progressing Goal: Absence of Hospital-Acquired Illness or Injury 12/16/20242330 by Catherine Davis RN Outcome: Ongoing, Progressing 12/16/20242327 by Catherine Davis RN Outcome: Ongoing, Progressing Intervention: Identify and Manage Fall Risk Flowsheets (Taken 12/16/20242327) Safety Promotion/Fall Prevention: activity supervised assistive device/personal items within reach clutter-free environment maintained fall prevention program maintained Intervention: Prevent Skin Injury Flowsheets Taken 12/16/20242327 Skin Protection: protective footwear used Taken 12/16/20242229 Body Position: weight shifting Intervention: Prevent and Manage VTE (Venous Thromboembolism) Risk Flowsheets (Taken 12/16/20242327) VTE Prevention/Management: bilateral lower extremity SCDs (sequential compression devices) on Intervention: Prevent Infection Flowsheets (Taken 12/16/20242327) Infection Prevention: environmental surveillance performed Goal: Optimal Comfort and Wellbeing 12/16/20242330 by Catherine Davis RN Outcome: Ongoing, Progressing 12/16/20242327 by Catherine Davis RN Outcome: Ongoing, Progressing Intervention: Monitor Pain and Promote Comfort Flowsheets (Taken 12/16/20242327) Pain Management Interventions: quiet environment facilitated Problem: Fall Injury Risk Goal: Absence of Fall and Fall-Related Injury 12/16/20242330 by Catherine Davis RN Outcome: Ongoing, Progressing 12/16/20242327 by Catherine Davis RN Outcome: Ongoing, Progressing Intervention: Identify and Manage Contributors Flowsheets (Taken 12/16/20242327) Self-Care Promotion: independence encouraged Intervention: Promote Injury-Free Environment Flowsheets (Taken 12/16/20242327) Safety Promotion/Fall Prevention: activity supervised assistive device/personal items within reach clutter-free environment maintained fall prevention program maintained Problem: Wound Goal: Optimal Coping 12/16/20242330 by Catherine Davis RN Outcome: Ongoing, Progressing 12/16/20242327 by Catherine Davis RN Outcome: Ongoing, Progressing Intervention: Support Patient and Family Response Flowsheets (Taken 12/16/20242327) Supportive Measures: active listening utilized Family/Support System Care: involvement promoted presence promoted Goal: Optimal Functional Ability 12/16/20242330 by Catherine Davis RN Outcome: Ongoing, Progressing 12/16/20242327 by Catherine Davis RN Outcome: Ongoing, Progressing Intervention: Optimize Functional Ability Flowsheets (Taken 12/16/20242229) Activity Management: activity adjusted per tolerance Activity Assistance Provided: assistance, 1 person Goal: Absence of Infection Signs and Symptoms 12/16/20242330 by Catherine Davis RN Outcome: Ongoing, Progressing 12/16/20242327 by Catherine Davis RN Outcome: Ongoing, Progressing Intervention: Prevent or Manage Infection Flowsheets (Taken 12/16/20242327) Fever Reduction/Comfort Measures: lightweight bedding lightweight clothing Isolation Precautions: precautions maintained Goal: Improved Oral Intake 12/16/20242330 by Catherine Davis RN Outcome: Ongoing, Progressing 12/16/20242327 by Catherine Davis RN Outcome: Ongoing, Progressing Goal: Optimal Pain Control and Function 12/16/20242330 by Catherine Davis RN Outcome: Ongoing, Progressing 12/16/20242327 by Catherine Davis RN Outcome: Ongoing, Progressing Intervention: Prevent or Manage Pain Flowsheets (Taken 12/16/20242327) Pain Management Interventions: quiet environment facilitated Sleep/Rest Enhancement: awakenings minimized consistent schedule promoted family presence promoted Goal: Skin Health and Integrity 12/16/20242330 by Catherine Davis RN Outcome: Ongoing, Progressing 12/16/20242327 by Catherine Davis RN Outcome: Ongoing, Progressing Intervention: Optimize Skin Protection Flowsheets Taken 12/16/20242327 by Catherine Davis RN Pressure Reduction Techniques: frequent weight shift encouraged Skin Protection: adhesive use limited Taken 12/16/20242229 by Catherine Davis RN Activity Management: activity adjusted per tolerance Taken 12/16/2024 1300 by Christina Pierce, RN Head of Bed (HOB) Positioning: HOB at 30-45 degrees Goal: Optimal Wound Healing 12/16/20242330 by Catherine Davis RN Outcome: Ongoing, Progressing 12/16/20242327 by Catherine Davis RN Outcome: Ongoing, Progressing Intervention: Promote Wound Healing Flowsheets (Taken 12/16/20242327) Sleep/Rest Enhancement: awakenings minimized consistent schedule promoted family presence promoted Problem: Diabetes Goal: Optimal Coping 12/16/20242330 by Catherine Davis RN Outcome: Ongoing, Progressing 12/16/20242327 by Catherine Davis RN Outcome: Ongoing, Progressing Intervention: Support Wellbeing and Self-Management Success Flowsheets (Taken 12/16/20242327) Supportive Measures: active listening utilized Family/Support System Care: involvement promoted presence promoted Goal: Optimal Functional Ability 12/16/20242330 by Catherine Davis RN Outcome: Ongoing, Progressing 12/16/20242327 by Catherine Davis RN Outcome: Ongoing, Progressing Intervention: Optimize Functional Ability Flowsheets Taken 12/16/20242327 Self-Care Promotion: independence encouraged Taken 12/16/20242229 Activity Management: activity adjusted per tolerance Activity Assistance Provided: assistance, 1 person Goal: Blood Glucose Level Within Target Range 12/16/20242330 by Ctaherine Davis RN Outcome: Ongoing, Progressing 12/16/20242327 by Catherine Davis RN Outcome: Ongoing, Progressing Intervention: Optimize Glycemic Control Flowsheets (Taken 12/16/20242327) Hyperglycemia Management: blood glucose monitored Goal: Minimize Hypoglycemia Risk 12/16/20242330 by Catherine Davis RN Outcome: Ongoing, Progressing 12/16/20242327 by Catherine Davis RN Outcome: Ongoing, Progressing * Anesthesia PACU Signout - Herman Tineo DO - 12/16/2024 4:43 PM EDT Patient: Teresa Rivera Anesthesia Type: general Vitals Value Taken Time BP 113/50 12/16/24 15:50 Temp 36.4 ??C (97.5 ??F) 12/16/24 14:25 Pulse 76 12/16/24 15:53 Resp 18 12/16/24 15:53 SpO2 93 % 12/16/24 15:53 Vitals shown include unfiled device data. Anesthesia PACU Signout Patient location during evaluation: PACU Patient participation: complete - patient participated Level of consciousness: baseline and awake Pain management: adequate (pain score 0-3) Airway patency: natural airway Hydration status: acceptable PONV: none Cardiovascular status: acceptable and hemodynamically stable Respiratory status: acceptable, spontaneous ventilation, unassisted, nonlabored ventilation and nasal cannula Discharge Disposition: admit to inpatient unit Comments: Patient is s/p Procedure(s) and Anesthesia Type: * IRRIGATION AND DEBRIDEMENT, WOUND - General. Patient remains HDS on baseline 3L NC, neurologically appropriate, pain is controlled, and tolerating PO w/o N/V. Patient is appropriate for discharge from PACU to inpatient unit for continued postopcare. Cosigned by Aroldo Abdalla MD at 12/16/2024 9:02 PM EDT Associated attestation - Aroldo Abdalla MD - 12/16/2024 9:02 PM EDT Signature only. * Significant Event - Lisa Felton MD - 12/16/2024 2:54 PM EDT Brief oncology note Teresa Rivera is admitted for craniotomy site infection, and oncology is asked how to manage her anticoagulation in light of her new PE diagnosis. I was unable to see Mrs. Rivera today, as she was in the OR. Please see full consult note tomorrow. Brief recommendations are below: - We defer anticoagulation recommendations to neurosurgery. If safe to start anticoagulation in setting of her ICH 1 month ago, we have no qualms with starting either. - It's not clear that her disease in her lung is progressing. Rather, the changes in her R lung appear more consistent with pneumonia than lung cancer. - We will hold her next cycle of chemotherapy in light of her debilitation and active infection. Postop and once her infection is controlled, we'd like neurosurgery input as to the minimum recommended time to wait before restarting chemotherapy. - Will ensure outpatient medical oncology follow up is scheduled when appropriate. Lisa Felton MD Hematology/Oncology fellow * Progress Notes - Pepper Evans PharmD - 12/16/2024 2:32 PM EDT A request for Pharmacist to Dose was entered for cefepime & metronidazole. An individualized dose was entered on behalf of the requesting provider. Details are listed below: Medication/Dose/Route/Frequency: Cefepime 2g IV Q12H Metronidazole 500mg PO Q8H Indication: surgical site infection; poss PNA Weight: 113 kg CrCl: ~49 ml/min Pepper Evans PharmD, [place], [facility] Internal Medicine Clinical Pharmacist * Op Note - Barron Baer MD - 12/16/2024 1:53 PM EDT Operative Note Date: 12/16/24 Location: [facility] Name: Teresa Rivera, : 1960, Diagnoses: Pre-op Diagnosis Incisional infection Post-op Diagnosis Incisional infection Procedure(s): Wound washout/revision with craniectomy for infected bone flap Attending Surgeon(s): * Abhilash Bangura - Primary Brick Layer(s): * Barron Baer MD - Resident - Assisting Anesthesia: General ASA: ASA status not filed in the log. Blood Administration: Blood Product Administration History Date Volume Status Transfuse RBC, Irradiated Ordered (Discontinued) Transfuse RBC 11/30/2024 300 mL Completed 11/30/24 0609 Transfuse RBC, Irradiated 11/22/2024 347.92 mL Stopped Transfuse RBC 11/19/2024 300 mL Completed 11/19/24 1613 11/19/2024 600 mL Completed 11/19/24 1430 Transfuse RBC 11/19/2024 400 mL Completed 11/19/24 0528 Estimated Blood Loss: 75 mL Drains: * None in log * Specimen: Specimens ID Source Frozen? A Other (specify site) Description: Epidural B Other (specify site) Description: Skull flap Findings: described below Indications: Teresa Rivera is an 64 y.o. female who is having surgery for Incisional infection. Narrative: The patient was identified by name and medical record number within the preoperative holding area and taken back to the operating room where Anesthesiology colleagues intubated the patient and placedher under general endotracheal anesthesia. She was positioned supine with the head in a isaac bag. We then marked out the patient's old incision and prepped and draped was performed in standard sterile fashion. Time-out was called. Old incision was opened using a 15 blade and dissection was carried downward using Bovie electrocautery and blunt dissection. Purulent material was noted below the galea and a small portion of the temporalis flap appeared to be quite devitalized and infected. The temporalis devitalized tissue was then removed and sent for tissue culture. There was additional exudative phlegmon appearing tissue that was also sent with tissue for culture. A screwdriver was then used to remove the titanium plates and screws and the bone flap was elevated. Bone flap appeared to be contaminated and was sent for culture as well. There appeared to be purulent material underlying the bone flap outside of the dural s ubstitute graft and this was swabbed. We then irrigated copiously with several L of sterile saline.We then used a curette to debride any additional devitalized tissue and used a 15 blade to trim theedges of the skin until healthy-appearing skin was present. We then irrigated once again placed vancomycin powder in the wound and turned our attention towards closure. The galea was closed using inte rrupted 2-0 Vicryl stitches. The skin was then closed using alejandro. The incision was then dressed with bacitracin and Covaderm. At the end of the case all counts were correct and there were no immediate intraoperative complications. The attending physician was present for all cabral portions of the case. The patient was then extubated and taken to PACU in stable condition. Complications: None; patient tolerated the procedure well. Submitted by: Barron Baer MD - 12/16/2024 Cosigned by Abhilash Bangura MD at 12/19/2024 9:17 AM EDT Associated attestation - Abhilash Bangura MD - 12/19/2024 9:17 AM EDT I was present for the entirety of the procedure(s). * Progress Notes - Vonnie Gutierrez RN - 12/16/2024 1:32 PM EDT Case Management Adult Initial Progress Note Teresa Rivera 64 y.o. female CSN: [id number] Admission: 12/15/2024 8:36 PM Primary Problem: Dyspnea Inker Machine reviewed chart to complete this Initial Case Management Assessment. PCP: Laurie Gutierrez MD Emergency Contact: Extended Emergency Contact Information Primary Emergency Contact: Zachary Rivera Mobile Relation: Son Preferred language: Barbadian Environmental Aid needed? No Secondary Emergency Contact: Aurora Rivera Mobile Relation: Daughter Preferred language: Barbadian Environmental Aid needed? No Insurance: Primary Visit Coverage Payer Plan Sponsor Code Group Number Group Name [employer] [id number] Primary Visit Coverage Subscriber Subscriber ID Subscriber Name Subscriber SSN Subscriber Address [id number] TERESA RIVERA [id number] [place] [address] Patient information: Primary Caregiver: Self Support System: Immediate family Daily Living Activities: Functional Status: Independent Living Arrangements: Alone Type of Residence: Private residence [address] [place] [address] Current DME: Equipment Currently Used at Home: commode chair, walker, rolling, wheelchair, manual, oxygen ([employer]) Income Information: Income Source: Retired Income/Expense Information: Income meets expenses Current Resources Utilized: None Housing Circumstances-Z Codes: Housing Circumstances (select all that apply): Low Income (101-300% Federal Poverty Guidlines) - Z596 Patient Referred to: None Anticipated Discharge Date: TBD Patient's Discharge Goal: Patient/Family Anticipates Transition to: home with family Assistance Available at Discharge: Availability of Care Givers (#Hours): 10-14 hours Discharge Transport: Transportation Anticipated: family or friend will provide Follow Up Transport: Transportation Needed to Follow up Appoinments: Family/Friend will Provide Home Health / Home Infusion / Outpatient Dialysis Services: None Living Will/Advance Directive/Power of Recessing Machine Operator /Guardian: None Additional Comments: Patient admitted for worsening dyspnea and hypoxia noted to desaturate to 80s on her baseline oxygen during activity. Patient going for I&D of wound on this date. RNCM will continue to monitor for further discharge needs. Vonnie Gutierrez RN * Progress Notes - Pepper Evans PharmD - 12/16/2024 12:00 PM EDT Pharmacokinetic Consult - Therapeutic Drug Monitoring HPI and Hospital Course: Teresa Rivera is a 64 y.o. female who was started on vancomycin given c/fcraniotomy site infection and possible PNA. Pharmacy was consulted for management of vancomycin. Dose History: Recent Vancomycin Admin No antibiotic orders with administrations found. Wt Readings from Last 1 Encounters: 12/16/24 113 kg (249 lb 1.9 oz) BMI: 39.02 kg/m?? Creatinine, Plasma (mg/dL) Date/Time Value 12/16/2024 0552 1.50 (H) 12/15/2024 2318 1.48 (H) 12/10/2024 0706 1.35 (H) Estimated Creatinine Clearance: 49.2 mL/min (A) (by C-G formula based on SCr of 1.5 mg/dL (H)). Assessment Unclear if SCr is new baseline or still recovering from previous JORGE. Plan 1. Recommend loading dose of 2500 mg IV once (~22 mg/kg). 2. Recommend dosing IV vancomycin intermittently. 3. Obtain vancomycin random level with AM labs on 12/17. Pharmacy will continue to follow. Submitted by: Pepper Evasn PharmD 12/16/2024 11:58 AM * Consults - Mariah Hurley PA - 12/16/2024 10:13 AM EDTAssociated Order(s): Inpatient consult to Infectious Diseases Images from the original note were not included. Inpatient consult to Infectious Diseases Consult performed by: Mariah Hurley PA Consult ordered by: Lisa Lloyd DO Reason for consult: crani surgical site infection and post obstructive pna TRANSPLANT INFECTIOUS DISEASE INPATIENT CONSULT 12/16/2024 HPI OBTAINED FROM: [X] Patient [ ] Family [ ] Friend [ ] Environmental Aid [X] Medical records HISTORY OF PRESENT ILLNESS: Teresa Rivera is a 64 y.o. 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 Recently admitted 11/29/24 - 12/10/24 after having a seizure in [facility]. Some notes about concern for meningitis; underwent LP 12/06/24. [facility] 15 (0 neutrophils, 13 lymphocytes, 2 monocytes), cultures were NGTD, ME panel not sent. MR head noted small amount of intraparenchymal hemorrhage along the resection margin, unchanged abundant dural thickening and enhancement subjacent to the craniotomy site (can't rule out superimposed infectious process). Completed 6 days of IV antibiotics prior todischarge including cefepime, ampicillin, and vancomycin. She presented on 12/15/24 with complaints of worsening dyspnea and productive cough. She had subjective fevers at home. She has noticed purulent drainage from her craniotomy site for the past 3-4 weeks. No overt erythema from the site. On admission, she is afebrile, on 3-3.5 L NC, and WBC 9. Blood cultures are pending. CT head noted swelling and enhancement of the superficial soft tissues and adjacent dura at the site of resection on the let parietal skull concerning for postoperative infection. CTA PE with bilateral segmental and subsegmental pulmonary emboli with greatest involvement in the RLL; nodular consolidation in RUL likely relating to post obstructive pneumonia. She was started on zosyn. Respiratory culture with poor quality. Of note, sputum culture 12/01/24 grew pseudomonas aeruginosis MDR/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 Neurosurgery was consulted and plans to take today for I&D. ROS: 14 point ROS was reviewed and negative except as detailed above. PAST MEDICAL HISTORY: Past Medical History[1] PAST SURGICAL HISTORY: Surgical History[2] ALLERGIES: Allergies[3] HOME MEDICATIONS: Prior to Admission medications Medication Sig Start [...] by mouth every evening. Jef Hendrickson MD Qphhfbi-Obllpqwcfcx-Nnwbyykvyq (Breztri Aerosphere) 160-9-4.8 MCG/ACT aerosol Inhale 2 [...] mouth daily with breakfast. Jef Hendrickson MD FLUoxetine (PROzac) 40 MG [...] a day as needed. Jef Hendrickson MD [Paused] insulin glargine (Lantus SoloStar) 100 UNIT/ML injection pen Inject 25 Units under the skin nightly. Wait to take this until your doctor or other care provider tells you to start again. Jef Hendrickson MD levETIRAcetam (Keppra) 1000 MG tablet Take 1 tablet by mouth 2 times a day. 12/10/24 Bernice Eckert MD lidocaine (Xylocaine) 5 % ointment Apply 2 times a day. 11/08/24 Satnam Colvin MD magic mouthwash BLM (FIRST-Mouthwash) suspension Swish and spit 15 mL 4 times a day before meals and nightly for 3 days. 10/18/24 Radha Slaughter MD magnesium oxide (Mag-Ox) 400 MG tablet Take 1 tablet by mouth 2 times a day. Hold for diarrhea 10/04/24 Satnam Colvin MD melatonin tablet Take 2 tablets by mouth nightly. ProviderJef MD metFORMIN (Glucophage) 1000 MG tablet Take 1 tablet by mouth 2 times a day with meals. ProviderJef MD metoprolol tartrate (Lopressor) 25 MG tablet Take 1 tablet by mouth 3 times a day. 12/10/24 Bernice Eckert MD montelukast (Singulair) 10 MG tablet Take 1 tablet by mouth nightly. ProviderJef MD mupirocin (Bactroban) 2 % ointment Apply on head 2 times a day Patient taking differently: Apply 1 Application topically 2 times a day. Apply on head 2 times a day 11/08/24 Satnam Colvin MD [Paused] NovoLOG FLEXPEN 100 UNIT/ML injection pen Sliding scale three times a day with correctionsand meals; BS 150-199=2units; BS 200-249=4units; BS 250- 229=6units; 300-349=8 units; 350-399=10 units; anything greater than 399=12units max of 36units daily Wait to take this until your doctor or other care provider tells you to start again. Jef Hendrickson MD nystatin (Mycostatin) 713845 UNIT/GM powder Apply on bottom 2 times a day 11/08/24 Satnam Colvin MD ondansetron ODT (Zofran-ODT) 4 MG disintegrating tablet Dissolve 1 tablet on the tongue every 6 hours as needed for nausea or vomiting. 12/10/24 Bernice Eckert MD pantoprazole (Protonix) 40 MG EC tablet Take 1 tablet by mouth daily. Do not crush, chew, or split.Jef Hendrickson MD pen needle, diabetic 31G X 5 MM misc Use as directed with insulin pen. 10/31/24 Sasha Nuñez, polyethylene glycol (Miralax) 17 g packet Take 17 g by mouth 2 times a day as needed (constipation). 12/10/24 Bernice Eckert MD prochlorperazine (Compazine) 10 MG tablet Take 1 tablet by mouth every 6 hours as needed for nauseaor vomiting. 11/08/24 Satnam Colvin MD [Paused] rivaroxaban (Xarelto) 20 MG tablet Take 1 tablet by mouth 1 time each day with dinner. Take with food. Wait to take this until your doctor or other care provider tells you to start again. Jef Hendrickson MD [Paused] rOPINIRole (Requip) 1 MG tablet Take 1 tablet by mouth 2 times a day. Wait to take this until your doctor or other care provider tells you to start again. Jef Hendrickson MD [Paused] SITagliptin (Januvia) 50 MG tablet Take 1 tablet by mouth every morning. Wait to take this until your doctor or other care provider tells you to start again. Jef Hendrickson MD [Paused] triamterene-hydrochlorothiazide (Maxzide-25) 37.5-25 MG tablet Take 1 tablet by mouth every morning. Wait to take this until your doctor or other care provider tells you to start again. Jef Hendrickson MD Vitamin B-12 ER 1000 MCG tablet controlled-release Take 1 tablet by mouth Daily. Jef Hendrickson MD Bactrim DS 800-160 MG tablet every 12 hours. 11/24/24 12/10/24 Jef Hendrickson MD carvedilol (Coreg) 25 MG tablet take 1 tablet 2 times each day Patient not taking: Reported on 12/01/2024 12/10/24 Jef Hendrickson MD empagliflozin (Jardiance) 25 MG take 1 tablet 1 time each day Patient not taking: Reported on 12/01/2024 12/10/24 Jef Hendrickson MD fluconazole (Diflucan) 200 MG tablet TAKE 1 TABLET 1 TIME EACH DAY FOR 7 DAYS 11/24/24 12/10/24 Jef Hendrickson MD levETIRAcetam (Keppra) 500 MG tablet Take 2 tablets by mouth 2 times a day. 12/10/24 12/10/24 Bernice Eckert MD losartan (Cozaar) 25 MG tablet Take 1 tablet by mouth daily. Patient not taking: Reported on 12/01/2024 12/10/24 Jef Hendrickson MD magic butt balm (Cholestyramine) CMPD (Magic Butt) Apply 1 Application topically every 1 hour as needed for diaper rash. 10/31/24 12/10/24 Sasha Nuñez DO metoprolol tartrate (Lopressor) 50 MG tablet Take 1 tablet by mouth 2 times a day. 11/22/24 12/10/24 Vonnie Bowens MD ofloxacin (Floxin) 0.3 % otic solution 1 (one) time each day at the same time. 11/24/24 12/10/24 Jef Hendrickson MD ondansetron (Zofran) 8 MG tablet Take 1 tablet by mouth 2 times a day. Take on Day 4 of cycle and then take PRN 11/08/24 12/10/24 Satnam Colvin MD Probiotic, Lactobacillus, capsule Take 1 capsule by mouth daily. 11/08/24 12/10/24 Satnam Colvin MD spironolactone (Aldactone) 25 MG tablet Take 1 tablet by mouth. Patient not taking: Reported on 12/01/2024 11/26/24 12/10/24 Jef Hendrickson MD CURRENT MEDICATIONS: Current Medications[4] SOCIAL HISTORY: Social History[5] FAMILY HISTORY: Family History[6] PHYSICAL EXAMINATION: GEN: chronically ill appearing, in NAD, falling asleep SKIN: craniotomy site with mostly healed incision, small open area with minimal drainage, no surrounding erythema EYES: sclera anicteric, EOMI, PERRL HENT: NCAT, mmm, neck supple, full ROM CHEST: atraumatic, symmetric chest rise HEART: RRR, no murmur LUNGS: on NC, bilateral decreased breath sounds GI: NTND VASC: no cyanosis, no edema MSK: no obvious deformity NEURO: A&OX3, no focal neurologic deficits PSYCH: appropriate mood and affect ACCESS: PIV VITAL SIGNS: Patient Vitals for the past 24 hrs: BP Temp Temp src Pulse Resp SpO2 Weight 12/16/24 0830 99/53 36.6 ??C (97.8 ??F) Oral 80 26 97 % -- 12/16/24 0730 100/54 -- -- 78 22 99 % -- 12/16/24 0545 111/51 -- -- 96 18 96 % -- 12/16/24 0534 108/75 -- -- (!) 159 -- -- -- 12/16/24 0530 108/75 -- -- (!) 157 (!) 32 96 % -- 12/16/24 0447 98/72 -- -- (!) 144 -- -- -- 12/16/24 0422 -- -- -- -- -- -- 113 kg (249 lb 1.9 oz) 12/16/24 0353 -- -- -- -- 23 -- -- 12/16/24 0342 91/51 36.7 ??C (98 ??F) -- 87 24 100 % -- 12/16/24 0204 -- -- -- -- 23 -- -- 12/16/24 0138 118/69 -- -- 89 25 92 % -- 12/16/24 0106 -- -- -- 92 23 94 % -- 12/16/24 0105 -- -- -- 91 26 95 % -- 12/16/24 0103 -- -- -- 56 19 95 % -- 12/16/24 0102 -- -- -- 92 22 95 % -- 12/16/24 0101 -- -- -- (!) 133 26 96 % -- 12/16/24 0050 -- -- -- (!) 163 24 95 % -- 12/16/24 0045 115/87 -- -- (!) 144 (!) 29 94 % -- 12/16/24 0040 91/54 -- -- (!) 152 24 95 % -- 12/16/24 0038 -- -- -- (!) 149 21 95 % -- 12/16/24 0037 -- -- -- 100 24 96 % -- 12/16/24 0036 -- -- -- (!) 152 26 95 % -- 12/16/24 0035 -- -- -- (!) 163 25 95 % -- 12/16/24 0034 -- -- -- (!) 146 26 95 % -- 12/16/24 0033 -- -- -- 100 24 96 % -- 12/16/24 0032 -- -- -- (!) 150 (!) 27 95 % -- 12/16/24 0031 -- -- -- (!) 157 25 96 % -- 12/16/24 0030 83/65 -- -- (!) 154 26 96 % -- 12/16/24 0025 -- -- -- (!) 160 25 96 % -- 12/16/24 0020 -- -- -- (!) 152 24 97 % -- 12/16/24 0017 -- -- -- (!) 145 24 96 % -- 12/16/24 0014 -- -- -- (!) 161 25 97 % -- 12/16/24 0011 -- -- -- (!) 167 25 98 % -- 12/16/24 0008 -- -- -- 85 22 98 % -- 12/16/24 0005 -- -- -- 87 24 97 % -- 12/16/24 0000 104/53 36.8 ??C (98.3 ??F) -- 87 23 98 % -- 12/15/24 2018 114/74 37.1 ??C (98.8 ??F) Oral 95 20 97 % -- LABS: Labs in last 18 hours CBC WBC 9.08 Hb 8.0 (L) Plt 187 Hct 25.6 (L) ANC ?? INR 1.2 (H), PTT 26, Anti-Xa ?? BMP Na 138 Cl 100 BUN 18 Glu 168 (H) K 3.8 Co2 24 Cr 1.50 (H) Ca 9.0 iCa 4.7 Mg 1.0 (L), Phos 2.9 Lactate ?? LFT AST 16 AlkPhos 85 T Prot 7.1 ALK 8 (L) Bili 0.5 Alb ?? D.Bili ?? Patient records reviewed and pertinent findings outlined below. IMAGING/STUDIES: CT Head w and wo IV Contrast Result Date: 12/16/2024 Impression: Swelling and enhancement of the superficial soft tissues and adjacent dura associated with the site of prior extra-axial metastasis resection in the left superior parietal skull concerning for postoperative infection. CT Angio Pulmonary Embolism Result Date: 12/16/2024 Impression: Bilateral segmental and subsegmental pulmonary emboli with greatest involvement in the right lower lobe. No right heart strain. Increased size of right upper paramediastinal soft tissue lung mass in the region of prior malignancy is highly concerning for disease recurrence. Increased size of right upper paratracheal lymph node raises concern for metastatic involvement. Nodular consolidation within the posterior superior right upper lobe likely relating to postobstructive pneumonia. XR Chest 1 View Result Date: 12/15/2024 Impression: Stable appearance of the chest. No change right upper lobe opacity ANTIMICROBIAL REVIEW: Vancomycin 12/16 - present Zosyn 12/16 - present MICROBIOLOGY: Results Procedure Component Value Units Date/Time Methicillin Resistant Staphylococcus aureus (MRSA) by PCR [[id number]] (Normal) Collected: 12/16/24 0750 Order Status: Completed Specimen: Swab from Nares Updated: 12/16/24 1001 Methicillin Resistant Staphylococcus aureus (MRSA) by PCR Not Detected Narrative: This test is FDA approved for use with nares swab specimens using the eSwabs. This test is used forclinical purposes. It should not be regarded as investigational or for research. This laboratory iscertified under the Clinical Laboratory improvement Amendments of 1988 (CLIA-88 as qualified to perform high complexity clinical laboratory testing. Respiratory Culture and Gram Stain [[id number]] (Abnormal) Collected: 12/16/24 0847 Order Status: Completed Specimen: Sputum, Expectorated Updated: 12/16/24 0950 Culture Smear contains >=10 squamous epithelial cells per low power field, suggestive of poor quality. Culture not performed. A credit has been issued. Gram Stain Result Greater than 10 Epithelial cells/LPF Fewer than 25 WBC/LPF Few Gram positive cocci in clusters Rare Gram positive cocci in pairs and chains Few Gram negative rods Rare Budding yeast Streptococcus pneumoniae and Legionella Urinary Antigen [[id number]] (Normal) Collected: 12/16/24 0839 Order Status: Completed Specimen: Urine, Clean Catch Updated: 12/16/24 0945 Legionella pneumophila serogroup 1 Antigen Result (Urine) Negative Streptococcus pneumoniae Antigen Result (Urine) Negative Multi Drug Resistance Test [[id number]] Collected: 12/16/24 0750 Order Status: Sent Specimen: Swab from Nares and Carole Rectal Updated: 12/16/24 0845 Blood Culture (Aerobic/Anaerobet Set) [[id number]] Collected: 12/16/24 0552 Order Status: Completed Specimen: Blood, Venous Updated: 12/16/24 0819 Culture Culture in lab Narrative: Low blood volume submitted, results may be compromised Blood Culture (Aerobic/Anaerobet Set) [[id number]] Collected: 12/15/24 2318 Order Status: Completed Specimen: Blood, Venous Updated: 12/16/24 0301 Culture Culture in lab Nasopharyngeal Respiratory Panel [[id number]] (Normal) Collected: 12/15/242318 Order Status: Completed Specimen: Swab from Nasopharynx Updated: 12/16/24 0233 Nasopharyngeal Respiratory PCR Interpretation Not Detected for [...] Respiratory PCR Panel is performed using the [employer] instrument. This test is FDA approved for use with Nasopharyngeal swabs only. This test is used for clinical purposes. It should not be regarded as investigational or for research. [facility] [facility] [place] Clinical Microbiology Laboratory is certified under the Clinical Laboratory Improvement Amendments of 1988 (CLIA-88) as qualified to perform high complexity clinical laboratory testing. SARS CoV-2/COVID-19 by PCR - Rapid [[id number]] (Normal) Collected: 12/15/242318 Order Status: Completed Specimen: Swab from Nasopharynx Updated: 12/16/24 0122 SARS CoV-2/COVID-19 RNA PCR Result Not Detected [...] clinical signs and symptoms consistent with COVID-19. SARS-CoV-2, Flu A, Flu B, and RSV - Rapid [[id number]] Order Status: Canceled Specimen: Swab from Nasopharynx PRIOR CULTURES ASSESSMENT: Teresa Rivera is a 64 y.o. 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 She was recently admitted 11/29/24 - 12/10/24 after a seizure. During that admission, she had a respiratory culture that grew MDR PRODUCT TECHNICIAN pseudomonas. She is now here with concern for postobstructive pneumonia and craniotomy surgical site infection. Blood cultures are pending. She was started on zosyn. Neurosurgery was taking her on 12/16 for a washout of her craniotomy site. PROBLEM LIST Craniotomy surgical site infection Pneumonia with history of MDR/PRODUCT TECHNICIAN organism Multiple bilateral PE Small cell lung cancer with mets to the brain on chemotherapy History of craniotomy RECOMMENDATIONS: - Start vancomycin, pharmacy to dose, to cover gram positive skin pathogens likely to be involved in surgical site infection - Stop zosyn - Start cefepime 2g q8h and flagyl 500 mg TID, given history of MDR/PRODUCT TECHNICIAN pseudomonas - Obtain bone/tissue/fluid cultures in the OR and send for gram stain/culture, fungal cultures, AFBcultures - Obtain repeat sputum culture - Will follow blood cultures - Monitor CBCd, CMP, and vancomycin levels on the above antibiotics Thank you for allowing us to participate in this patient's care. ID will follow. Mariah Hurley PA-C Division of Infectious Diseases Available on [employer] Chat History, assessment, and plan discussed with ID attending, Dr. Nelson MDM attestation - Today, I am treating the patient for surgical site infection, pneumonia which can cause sepsis, ARDS in the short-term future in the absence of appropriate treatment, as described in the note. - Assessment required an independent historian, additional information obtained from chart review, primary team - Independently interpreted test CT which shows craniotomy site infection. - Discussed management of surgical site infection, pneumonia with primary team and consulting services. - Reviewed notes by primary team and consulting services to determine appropriate plan of care as in the note. - Estimated Creatinine Clearance: 49.2 mL/min (A) (by C-G formula based on SCr of 1.5 mg/dL (H)).reviewed; antibiotics recommended above are dosed accordingly. - The patient is being intensively monitored for antimicrobial toxicity from vancomycin, cefepime, flagyl with the following tests: CBC, CMP. [1] Past Medical History: Diagnosis Date A-fib (CMS/HCC) Anxiety Brain tumor (CMS/HCC) Chemotherapy-induced nausea and vomiting 08/28/2023 COPD (chronic obstructive pulmonary disease) (CMS/[facility]) Depression Heart failure Hyperlipidemia Hypertension Osteoarthritis Pneumonia Small cell lung cancer (CMS/HCC) Type 2 diabetes mellitus [2] Past Surgical History: Procedure Laterality Date BRAIN SURGERY TUBAL LIGATION N/A Tubal Ligation from [facility] TYMPANOSTOMY TUBE PLACEMENT N/A Ear Surgery Eustachian Tube from [facility] [3] Allergies Allergen Reactions Cephalexin Nausea and Vomiting Lisinopril Cough Meloxicam Nausea [4] Current Facility-Administered Medications Medication Dose Route Frequency Provider Last Rate Last Admin atorvastatin (Lipitor) tablet 40 mg 40 mg Oral q PM Gordy Purvis APRN, DNP cetirizine (ZyrTEC) tablet 10 mg 10 mg Oral Daily Gordy Purvis APRN, DNP glucose (Glutose) 40 % oral gel 15-30 grams of glucose 15-30 grams of glucose Sublingual q15 min PRN Gordy Purvis APRN, DNP Or dextrose 10 % (D10W) bolus 125 mL 125 mL Intravenous q15 min PRN Kentonuascencionberaine Gordyjustin Segura APRN, DNP Or dextrose 10 % (D10W) bolus 250 mL 250 mL Intravenous q15 min PRN Shaeberaine Gordyjustin Segura APRN, DNP Or glucagon (human recombinant) injection 1 mg 1 mg Intramuscular q15 min PRN Gordy Purvis APRN, DNP [Held by provider] heparin 25,000 units/250 mL (100 unit/mL) infusion - Adult LOW DOSE Protocol 0-35 Units/kg/hr Intravenous Titrated Jimmy Jones, Stopped at 12/16/24 0743 insulin glargine-yfgn 100 UNIT/ML injection 5 Units 5 Units Subcutaneous Nightly Gordy Purvis APRN, DNP ipratropium-albuterol (Duo-Neb) 0.5-2.5 mg/3 mL nebulizer solution 3 mL 3 mL Nebulization q6h PRN Gordy Purvis APRN, DNP magnesium sulfate IVPB 4 g 4 g Intravenous q4h Gordy Purvis APRN, DNP 25 mL/hr at 12/16/24 0826 4 g at 12/16/24 0826 metoprolol tartrate (Lopressor) tablet 25 mg 25 mg Oral TID Gordy Purvis APRN, DNP Tiotropium Norman Monohydrate (Spiriva Respimat) 2.5 MCG/ACT inhaler 2 puff 2 puff Inhalation Daily Gordy Purvis APRN, DNP 2 puff at 12/16/24 0842 And mometasone-formoterol (Dulera 200) 200-5 MCG/ACT inhaler 2 puff 2 puff Inhalation BID Gordy Purvis APRN, DNP 2 puff at 12/16/24 0845 pantoprazole (Protonix) EC tablet 40 mg 40 mg Oral Daily Gordy Purvis APRN, DNP piperacillin-tazobactam (Zosyn) 4.5 g in sodium chloride 0.9% 100 mL IVPB (vial adapter required) 4.5 g Intravenous q6h Gordy Purvis APRN, DNP 36.7 mL/hr at 12/16/24 0825 4.5 g at 12/16/24 0825 prochlorperazine (Compazine) tablet 10 mg 10 mg Oral q6h PRN Gordy Purvis APRN, DNP sodium chloride 0.9 % flush 10 mL 10 mL Intravenous q12h Gordy Purvis APRN, DNP 10 mL at 12/16/24 0751 And sodium chloride 0.9 % flush 10 mL 10 mL Intravenous PRN Gordy Purvis APRN, DNP Current Outpatient Medications Medication Sig Dispense Refill [...] Take 1 tablet by mouth every evening. Uqqtzcz-Srekzbsrtxr-Datkprmwsf (Breztri Aerosphere) 160-9-4.8 MCG/ACT aerosol Inhale 2 [...] mouth 3 times a day as needed. [Paused] insulin glargine (Lantus SoloStar) 100 UNIT/ML injection pen Inject 25 Units under the skin nightly. levETIRAcetam (Keppra) 1000 MG tablet Take 1 tablet by mouth 2 times a day. 60 tablet 5 lidocaine (Xylocaine) 5 % ointment Apply 2 times a day. 30 g 0 magic mouthwash BLM (FIRST-Mouthwash) suspension [...] a day with meals. metoprolol tartrate (Lopressor) 25 MG tablet Take 1 tablet by mouth 3 times a day. 90 tablet 5 montelukast (Singulair) 10 MG tablet Take 1 tablet by mouth nightly. mupirocin (Bactroban) 2 % ointment Apply on head 2 times a day (Patient taking differently: Apply 1Application topically 2 times a day. Apply on head 2 times a day) 22 g 0 [Paused] NovoLOG FLEXPEN 100 UNIT/ML injection pen Sliding scale three times a day with correctionsand meals; BS 150-199=2units; BS 200-249=4units; BS 250- 229=6units; 300-349=8 units; 350-399=10 units; anything greater than 399=12units max of 36units daily nystatin (Mycostatin) 449368 UNIT/GM powder Apply on bottom 2 times a day 30 g 0 ondansetron ODT (Zofran-ODT) 4 MG disintegrating tablet Dissolve 1 tablet on the tongue every 6 hours as needed for nausea or vomiting. 20 tablet 0 pantoprazole (Protonix) 40 MG EC tablet Take 1 tablet by mouth daily. Do not crush, chew, or split. pen needle, diabetic 31G X 5 MM misc Use as directed with insulin pen. 100 each 11 polyethylene glycol (Miralax) 17 g packet Take 17 g by mouth 2 times a day as needed (constipation). 60 packet 5 prochlorperazine (Compazine) 10 MG tablet Take 1 tablet by mouth every 6 hours as needed for nauseaor vomiting. 30 tablet 3 [Paused] rivaroxaban (Xarelto) 20 MG tablet Take 1 tablet by mouth 1 time each day with dinner. Take with food. [Paused] rOPINIRole (Requip) 1 MG tablet Take 1 tablet by mouth 2 times a day. [Paused] SITagliptin (Januvia) 50 MG tablet Take 1 tablet by mouth every morning. [Paused] triamterene-hydrochlorothiazide (Maxzide-25) 37.5-25 MG tablet Take 1 tablet by mouth every morning. Vitamin B-12 ER 1000 MCG tablet controlled-release Take 1 tablet by mouth Daily. [5] Social History Tobacco Use Smoking status: Former Current packs/day: 0.00 Average packs/day: 1.5 packs/day for 48.4 years (72.6 ttl pk-yrs) Types: Cigarettes Start date: 1975 Quit date: 10/17/2023 Years since quittin.1 Passive exposure: Past Smokeless tobacco: Never Vaping Use Vaping status: Never Used Substance Use Topics Alcohol use: Never Drug use: Never [6] Family History Problem Relation Name Age of Onset No Known Problems Mother No Known Problems Father Diabetes Other Fibromyalgia Other * Progress Notes - Lisa Lloyd DO - 12/16/2024 8:48 AM EDT Non-billable rounding note: See H&P dated this date for full details. Patient seen and examined on rounds. Labs, medications, and vitals reviewed. I discussed her case with oncology, infectious disease, and reviewed notes from neurosurgery. Patient is feeling well, reports improvement since initial admission as far as dyspnea is concerned. No family present at the time of my exam. She voices understanding about the operative plan of care as well as findings on imaging. Full progress note will follow in AM. 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 Nodular consolidation within the posterior superior right upper lobe likely relating to postobstructive pneumonia. - Chest Xray: Stable appearance of the chest. No change right upper lobe opacity, No large pleural effusion - SARS-CoV-2 testing; Nasopharyngeal Respiratory panel PCR: not detected - MRSA by PCR not detected on last admission - Consider Pulmonology consult pending clinical course - Blood Cx pending - Sputum Gram stain and culture - MRSA nares, Urine legionella/S. Pneuomo, histoplasma, - DouNebs ordered - Titrate O2NC to SpO2 >92% / 88-92% in setting of COPD -C-reactive protein (CRP) and procalcitonin tp monitor treatment - Started initially on zosyn on admission, discussed with ID, will stop zosyn and start cefepime and flagyl given history. Start vanc. Craniotomy site infection - Imaging noted extradural fluid collection with 5 mm dural replacement, as well as moderate soft tissue edema with cutaneous gas superficial to the site - Purulent drainage on exam - Neurosurgery taking her for a washout today - MRI brain with and without - Q.4 neuro check - ID consulted as above, continue vanc, cefepime, flagyl Hypomagnesemia -replete mag and check in AM Bilateral segmental and subsegmental pulmonary emboli w/o right heart strain. - On baseline 3L NC - on Xarelto for Afib, held since her recent SAD/SDH on 11/15. - Continue Low dose Heparin drip per protocol - will further discuss ongoing longterm anticoagulation with neurosurgery and with oncology Stage III SCLC w/ mets to brain s/p craniotomy and WBRT - Chemo: Carboplatin/Etopside daily, Atezolizumab q.21 days - last chemo: 11/10/24 - Radiation Therapy: 10/24/24-11/07/24, 3,000 cGY - MRI 12/02 : Postsurgical changes related to left parietal craniotomy for resection of an extra-axial metastasis. small amount of intraparenchymal hemorrhage in the perirolandic region along the resection margin. Unchanged abundant dural thickening and enhancement subjacent to the craniotomy site which could reflect a combination of posttreatment changes and reactive changes. A superimposed infectious process could be considered in the appropriate clinical setting. Residual cleft of enhancing tissue along the left falx which may reflect residual or recurrent tumor. - Reportedly discuss with Neurology on previous admission and there was no surgical recommendation CTA Pul 12/15- interval increase in right upper paramediastinal lung mass, now measuring 39 x 24 x 23 mm; Increased size of right upper paratracheal lymph node raises concern for metastatic involvement. -discussed with Dr. Felton personally, not clear if disease in lung is progressing. Post op need neurosurgery input regarding minimum recommended time to wait before restarting chemotherapy Afib w RVR - Follows [facility] - hx of typical aflutter s/p CTI flutter ablation - home meds: Xarelto on her last admission, hold per NSGY for recent SAH/SH - continue metoprolol 25 mg three times a day; titrate as tolerated Hx of Acute Kidney Injury (Cr improving) - JORGE Noted on last admission; after presenting with Cr of 2.81 with no clear etiology -sCr: 1.48 (H), (Baseline sCr 0.61- 0.91), BUN: 19, eGFR: 39.4, -Estimated Creatinine Clearance: 49.8 mL/min (A) (by C-G formula based on SCr of 1.48 mg/dL (H)). - Renal dose medications - Strict I&O - Repeat BMP in the AM - Renal US on last admission without hydronephrosis - Making adequate urine - Etiology remains unclear Seizure - Treated with [facility] inpatient, no refill history on discharge - discussed with pharmacy Chronic Type II diabetes with hyperglycemia -Glucose: - Hemoglobin A1c: 6.3 on 09/02/2024 - Home medication: Metformin, Januvia - Continue home insulin regimen with lantus - FSBS AC/HS with correctional insulin - Consistent carb diet - Monitor for hypoglycemia HFpEF exacerbation - Troponin , pro BNP 879 pg/ml - Last echo on 12/08/2024 noted LVEF of 52%; with elevated filling pressure - home meds: lasix, spiralactone, htcz-triamterene, metoprolol, losartan - Holding home antihypertensives in setting of low BP Normocytic Normochromic Anemia/Anemia of Chronic Disease HTN - meds as above HLD - atorvastatin, COPD - July 2023 PFT Moderate hyperinflation suggestive underlying obstructive disease. Nonspecific spirometry. Moderate reduced diffusion capacity DLCO 41%. - Home O2 requirement: 3L - home meds: Breztri, cetirizine, montelukast, - Spiriva plus dulera -DuoNebs q6 PRN -Titrate O2NC to SpO2 88-92% GERD - protonix, tums Chronic hypomagnesemia - Mag oxide Anxiety/Depression - hydroxyzine, fluoxetine Neuropathy/Chronic Pain -gabapentin Chemo induced Nausea and Vomiting - Zofran and Compazine Obesity - BMI 39.02 kg/m2 - complicates all aspects of care * Significant Event - Crystal Vuong MD - 12/16/2024 7:36 AM EDT To OR today for wound washout. Keep NPO and heparin drip held. Will discuss and consent patient * H&P - Gordy Purvis APRN, VINCENZO - 12/16/2024 3:24 AM EDT Images from the original note were not included. Consult to for Medical Management Chief Complaint: worsening dyspnea and hypoxia History of Present Illness: Teresa Rivera is a 64 y.o. 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 She reports that dyspnea started following her last hospitalization discharge and usually occur both at rest and with activity. She is she also reports a persistent productive cough over the past month. Additionally she reports concern for purulent drainage from her prior craniotomy site, as well as low grade fever and chills at home. However , she does not remember what her temperature was at home. She was recently hospitalized from 11/29/2024 to 12/10/2024 after presenting from [facility] infusion clinic to the ED with concern for seizure, external otitis, headaches. and low grade fever. CT HEAD was unremarkable for acute intracranial process but noted a small stable subdural hematoma. No seizure noted on EEG. MRI head noted Unchanged abundant dural thickening and enhancement subjacent to the craniotomy site which could reflect a combination of posttreatment changes and reactive changes . Neurosurgery was consulted given concern for possible meningitis (low grade fever after seizure). However Neurosurgery was reportedly less concerning for meningitis. In light of low grade fever with newseizure had a LP with IR. Cytology neg Cultures neg. Cryptococc ag negative. She was started on empirical antibiotics with ceftriaxone and vancomycin, ampicillin, broadened ceftriaxone to cefepime given Pseudomonas noted from sputum culture, which was attributed likely to colonization . Of note she was previously on Xarelto for AFib. But has been held since her recent SAD/SDH on 11/15.Per chart review, the initial plan was to hold for 2 weeks however given residual hemorrhage on MRInoted on her last admission neurosurgery reportedly recommended to hold follow-up with PCP as outpatient to discuss need for anticoagulation. Patient reports she has not restarted anticoagulation on admission Patient denies headache nausea and vomitting chest pain, syncope, dizziness,,hematemesis, pleuriticchest pain, melena, and diarrhea, constipation, dysuria, frequency, or urgency. In the ED, patient is afebrile, GCS of 15, tachypnic. She had tow episodes of Afib with RVR with max hr in 160s, requiring metoprolol IV. Purulent drainage from her craniotomy site noted on exam in the ED . Initial labs were pertinent for CRP: 50.7 (H), ESR:46 (H), CT head with and without contrastshows Swelling and enhancement of the superficial soft tissues and adjacent dura associated with the site of prior extra-axial metastasis resection in the left superior parietal skull concerning for postoperative infection. CTPE noted Bilateral segmental and subsegmental pulmonary emboli with greatest involvement in the right lower lobe. No right heart strain. She was started on Heparin drip. Neurosurgery was consulted has deferred primary management to Internal Medicine, recommending consult follow-up. Hospital Medicine was consulted and decision was made to admit for further workup and management Patient at bedside provided HPI, along with chart review. Review of Systems: Review of Systems Constitutional: Positive for chills and fever. Respiratory: Positive for cough and shortness of breath. Skin: Positive for wound (Post craniotomy site drainage). All other systems reviewed and are negative. Past Medical History: Past Medical History[1] Surgical History: Surgical History[2] Family History: Family History[3] Social History: She reports that she quit smoking about 14 months ago. Her smoking use included cigarettes. She started smoking about 49 years ago. She has a 72.6 pack-year smoking history. She has been exposed to tobacco smoke. She has never used smokeless tobacco. She reports that she does not drink alcohol and does not use drugs. Travel History: Relevant Travel History: Travel Screening Question Response Have you been in contact with someone who was sick? No / Unsure Do you have any of the following new or worsening symptoms? None of these Have you traveled internationally or domestically in the last month? No Travel History Travel since 11/15/24 No documented travel since 11/15/24 Allergies: Cephalexin, Lisinopril, and Meloxicam Vital Signs: Visit Vitals BP 111/51 Pulse 96 Temp 36.7 ??C (98 ??F) Resp 18 Wt 113 kg (249 lb 1.9 oz) SpO2 96% BMI 39.02 kg/m?? OB Status Postmenopausal Smoking Status Former BSA 2.31 m?? Physical Exam: General: well developed, well-nourished female who presents in no apparent distress Physical Exam Vitals and nursing note reviewed. Constitutional: Appearance: Normal appearance. She is well-groomed. She is obese. She is ill-appearing. HENT: Head: Normocephalic and atraumatic. Comments: Dried purulent drainage noted on post craniotomy site Eyes: General: Lids are normal. Vision grossly intact. Gaze aligned appropriately. Pupils: Pupils are equal, round, and reactive to light. Cardiovascular: Rate and Rhythm: Regular rhythm. Tachycardia present. Pulses: Radial pulses are 2+ on the right side and 2+ on the left side. Dorsalis pedis pulses are 2+ on the right side and 2+ on the left side. Posterior tibial pulses are 2+ on the right side and 2+ on the left side. Heart sounds: Normal heart sounds, S1 normal and S2 normal. Pulmonary: Effort: Pulmonary effort is normal. Tachypnea present. Breath sounds: Examination of the right-lower field reveals decreased breath sounds. Examination ofthe left-lower field reveals decreased breath sounds. Decreased breath sounds present. Abdominal: General: Bowel sounds are normal. Palpations: Abdomen is soft. Tenderness: There is no right CVA tenderness, left CVA tenderness, guarding or rebound. Musculoskeletal: General: Normal range of motion. Right upper arm: Normal. No swelling or edema. Left upper arm: Normal. No swelling or edema. Cervical back: Normal range of motion and neck supple. No edema or erythema. Right lower leg: Edema present. Left lower leg: No edema. Right foot: Normal. Left foot: Normal. Skin: General: Skin is warm. Capillary Refill: Capillary refill takes less than 2 seconds. Coloration: Skin is not jaundiced or pale. Neurological: General: No focal deficit present. Mental Status: She is alert and oriented to person, place, and time. Mental status is at baseline. GCS: GCS eye subscore is 4. GCS verbal subscore is 5. GCS motor subscore is 6. Psychiatric: Attention and Perception: Attention and perception normal. Mood and Affect: Mood and affect normal. Speech: Speech normal. Behavior: Behavior normal. Behavior is cooperative. Thought Content: Thought content normal. Labs (in last 24 hours): CBC: Lab Results Component Value Date WBC 9.08 12/16/2024 RBC 2.69 (L) 12/16/2024 HGB 8.0 (L) 12/16/2024 HGB 7.5 (L) 12/15/2024 HCT 25.6 (L) 12/16/2024 HCT 24.7 (L) 12/15/2024 PLT 187 12/16/2024 PLT 206 12/15/2024 MCV 95 12/16/2024 MCH 29.7 12/16/2024 MCHC 31.3 12/16/2024 RDW 18.7 (H) 12/16/2024 NRBC 0.0 12/16/2024 Differential: Lab Results Component Value Date WBC 9.08 12/16/2024 Coagulation: Lab Results Component Value Date INR 1.2 (H) 12/16/2024 Renal: Lab Results Component Value Date NA 140 12/15/2024 K 3.9 12/15/2024 CL 100 12/15/2024 CO2 28 12/15/2024 BUN 19 12/15/2024 CREATININE 1.48 (H) 12/15/2024 GLUCOSE 132 (H) 12/15/2024 CALCIUM 9.1 12/15/2024 Liver: Lab Results Component Value Date AST 16 12/15/2024 ALT 8 (L) 12/15/2024 BILITOT 0.5 12/15/2024 Glucose: No results found for: PGLU Lab Results Component Value Date HGBA1C 6.3 (H) 09/02/2024 Microbiology: Results Procedure Component Value Units Date/Time Blood Culture (Aerobic/Anaerobet Set) [[id number]] Collected: 12/15/242317 Order Status: Completed Specimen: Blood, Venous Updated: 12/16/24 0301 Culture Culture in lab Nasopharyngeal Respiratory Panel [[id number]] (Normal) Collected: 12/15/242318 Order Status: Completed Specimen: Swab from Nasopharynx Updated: 12/16/24 0233 Nasopharyngeal Respiratory PCR Interpretation Not Detected for [...] Respiratory PCR Panel is performed using the [employer] instrument. This test is FDA approved for use with Nasopharyngeal swabs only. This test is used for clinical purposes. It should not be regarded as investigational or for research. The [facility] [place] Clinical Microbiology Laboratory is certified under the Clinical Laboratory Improvement Amendments of 1988 (CLIA-88) as qualified to perform high complexity clinical laboratory testing. SARS CoV-2/COVID-19 by PCR - Rapid [[id number]] (Normal) Collected: 12/15/242318 Order Status: Completed Specimen: Swab from Nasopharynx Updated: 12/16/24 0122 SARS CoV-2/COVID-19 RNA PCR Result Not Detected [...] testing. This test was performed on the [employer] SARS CoV-2 Plus assay test, a PCR- based method. Negative results should be considered presumptive and do not preclude current or future infection obtained through community transmission or other exposures. Negative results must be considered in the context of an individual's recent exposures, history, presence of clinical signs and symptoms consistent with COVID-19. SARS-CoV-2, Flu A, Flu B, and RSV - Rapid [[id number]] Order Status: Canceled Specimen: Swab from Nasopharynx Imaging (in last 24 hours): CT Head w and wo IV Contrast Result Date: 12/16/2024 Swelling and enhancement of the superficial soft tissues and adjacent dura associated with the siteof prior extra-axial metastasis resection in the left superior parietal skull concerning for postoperative infection. CRITICAL RESULT: No. COMMUNICATION: Per this written report. By electronically signing this report, I, the attending physician, attest that I have personally reviewed the images/data for the above examination(s) and agree with the final edited report. Drafted by Kenneth Overton MD on 12/16/2024 1:36 AM Final report signed by Manjit Uriostegui MD on 12/16/2024 2:[address] Angio Pulmonary Embolism Result Date: 12/16/2024 Bilateral segmental and subsegmental pulmonary emboli with greatest involvement in the right lower lobe. No right heart strain. Increased size of right upper paramediastinal soft tissue lung mass in the region of prior malignancy is highly concerning for disease recurrence. Increased size of right upper paratracheal lymph node raises concern for metastatic involvement. Nodular consolidation within the posterior superior right upper lobe likely relating to postobstructive pneumonia. CRITICAL RESULT: No. COMMUNICATION: Per this written report. Preliminary report signed by Tim Ozuna DO on 12/16/2024 1:52 AM By electronically signing this report, I, the attending physician, attest that I have personally reviewed the images/data for the above examination(s) and agree with the final edited report. Drafted by Tim Ozuna DO on 12/16/2024 1:37 AM Final report signed by Manjit Uriostegui MD on 12/16/2024 1:59 AM XR Chest 1 View Result Date: 12/15/2024 Stable appearance of the chest. No change right upper lobe opacity CRITICAL RESULT: No. COMMUNICATION: Per this written report. Drafted by Mathew Mathew MD on 12/15/2024 10:10 PM Final report signed by Mathew Mathew MD on 12/15/2024 10:12 PM Assessment and plan: Principal problem: Dyspnea - Principal Problem: Dyspnea Active Problems: Morbid obesity with BMI of 40.0-44.9, adult (CMS/HCC) Small cell lung cancer (CMS/HCC) Anemia COPD (chronic obstructive pulmonary disease) (CMS/HCC) Diabetes mellitus (CMS/HCC) Type 2 diabetes mellitus without complications Pneumonia Pulmonary embolism Teresa Rivera is a 64 y.o. 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 Problems #Concern for postobstructive Pneumonia #Acute on Chronic Respiratory failure - Productive cough + Dyspnea + chill + subjective low grade fever + hypoxia - WBC 9.08, CRP: 50.7 (H), Procal: ??,ESR:46 (H),Lactate: 0.8, - CTPE 12/16- Increased size of right upper paratracheal lymph node raises concern for metastatic involvement. Nodular consolidation within the posterior superior right upper lobe likely relating to postobstructive pneumonia. - Chest Xray: Stable appearance of the chest. No change right upper lobe opacity, No large pleural effusion - SARS-CoV-2 testing; Nasopharyngeal Respiratory panel PCR: not detected - MRSA by PCR not detected on last admission PLAN: - Consider Pulmonology consult - Blood Cx pending - Sputum Gram stain and culture - MRSA nares, Urine legionella/S. Pneuomo, histoplasma, - DouNebs ordered - Titrate O2NC to SpO2 >92% / 88-92% in setting of COPD -C-reactive protein (CRP) and procalcitonin tp monitor treatment - Started on Zosyn # concern for craniotomy site infection - Imaging noted extradural fluid collection with 5 mm dural replacement, as well as moderate soft tissue edema with cutaneous gas superficial to the site - Purulent drainage on exam Plan - Neurology consulted in the ED, appreciate recommendations - Nothing by mouth; Preop labs - MRI brain with and without - Okay to start heparin drip - Infectious workup as above - Q.4 neuro check - ID consult in a.m. #Bilateral segmental and subsegmental pulmonary emboli w/o right heart strain. - On baseline 3L NC -Temp: , HR: (!) 144, BP: 98/72, RR: 23, SpO2: 100% - Tachypnic - on Xarelto for Afib, held since her recent SAD/SDH on 11/15. - Continue Low dose Heparin drip per protocol # Progressive malignancy #Stage III SCLC w/ mets to brain s/p craniotomy and WBRT - Chemo: Carboplatin/Etopside daily, Atezolizumab q.21 days - last chemo: 11/10/24 - Radiation Therapy: 10/24/24-11/07/24, 3,000 cGY - MRI 12/02 : Postsurgical changes related to left parietal craniotomy for resection of an extra-axial metastasis. small amount of intraparenchymal hemorrhage in the perirolandic region along the resection margin. Unchanged abundant dural thickening and enhancement subjacent to the craniotomy site which could reflect a combination of posttreatment changes and reactive changes. A superimposed infectious process could be considered in the appropriate clinical setting. Residual cleft of enhancing tissue along the left falx which may reflect residual or recurrent tumor. - Reportedly discuss with Neurology on previous admission and there was no surgical recommendation CTA Pul 12/15- interval increase in right upper paramediastinal lung mass, now measuring 39 x 24 x 23 mm; Increased size of right upper paratracheal lymph node raises concern for metastatic involvement. Plan - consult med onc in AM Afib w RVR - Follows [facility] - hx of typical aflutter s/p CTI flutter ablation - home meds: Xarelto on her last admission, hold per NSGY for recent SAH/SHD - Given IV metoprolol for Afib with RVR with hr in 160s - Given LR bolus in setting soft BPs Plan - continue metoprolol 25 mg three times a day; titrate as tolerated #Hx of Acute Kidney Injury (Cr improving) - JORGE Noted on last admission; after presenting with Cr of 2.81 with no clear etiology -sCr: 1.48 (H), (Baseline sCr 0.61- 0.91), BUN: 19, eGFR: 39.4, -Estimated Creatinine Clearance: 49.8 mL/min (A) (by C-G formula based on SCr of 1.48 mg/dL (H)). Plan - Renal dose medications - Strict I&O - Repeat BMP in the AM - Renal US on last admission without hydronephrosis - Making adequate urine - Etiology remains unclear # Seizure - Treated with Keppra inpatient, no refill history on discharge Chronic Type II diabetes with hyperglycemia -Glucose: - Hemoglobin A1c: 6.3 on 09/02/2024 - Home medication: Metformin, Januvia Plan - Continue home insulin regimen with lantus - FSBS AC/HS with correctional insulin - Consistent carb diet - Monitor for hypoglycemia # HFpEF exacerbation - Troponin , pro BNP 879 pg/ml - Last echo on 12/08/2024 noted LVEF of 52%; with elevated filling pressure - home meds: lasix, spiralactone, htcz-triamterene, metoprolol, losartan PLAN: - Holding home antihypertensives in setting of low BP #Normocytic Normochromic Anemia/Anemia of Chronic Disease - On admission : WRBC: 2.69 (L), Hgb 8.0 (L) (within baseline 7 - 9), HCT: 25.6 (L), MCV: 95, MCHC:31.3, RDW: 18.7, NRBC:0.0, Plan: - Monitor and transfuse if hgb<7 #HTN - meds as above #HLD - atorvastatin, #COPD - July 2023 PFT Moderate hyperinflation suggestive underlying obstructive disease. Nonspecific spirometry. Moderate reduced diffusion capacity DLCO 41%. - Home O2 requirement: 3L - home meds: Breztri, cetirizine, montelukast, PLAN: - Spiriva plus dulera -DuoNebs q6 PRN -Titrate O2NC to SpO2 88-92% #GERD - protonix, tums #Chronic hypomagnesemia - Mag oxide #Anxiety/Depression - hydroxyzine, fluoxetine #Neuropathy/Chronic Pain -gabapentin #Chemo induced Nausea and Vomiting - Zofran and Compazine #Obesity - BMI 39.02 kg/m2 - complicates all aspects of care Medications Home Medications Current Outpatient Medications Medication Instructions acetaminophen (TYLENOL) 650 mg, Oral, Every 6 hours scheduled, Under [facility] law, monthly prescriptions (30 days) can be refilled at 25 days and three-month prescriptions (90 days) at 80 days. Please contact the insurance company with questions if refills are denied. atorvastatin (LIPITOR) 40 mg, Every evening Xpbkdyp-Cpdcxsfjpjk-Ehbtaabqld (Breztri Aerosphere) 160-9-4.8 MCG/ACT aerosol 2 puffs, 2 times daily Calcium Carb-Cholecalciferol 600-10 MG-MCG tablet 1 tablet, Daily calcium carbonate (TUMS) 500 mg, 4 times daily PRN cetirizine (ZYRTEC) 10 mg, Daily estradiol (ESTRACE) 2 g, Daily ferrous sulfate 325 mg, Daily with breakfast FLUoxetine (PROZAC) 40 mg, Daily furosemide (Lasix) 40 MG tablet TAKE 1 TABLET BY MOUTH ONCE DAILY FOR LEG SWELLLING gabapentin (NEURONTIN) 600 mg, Oral, 4 times daily glucose (TRUEPLUS GLUCOSE) 16 g, Oral, As needed hydrOXYzine HCl (ATARAX) 25 mg, 3 times daily PRN [Paused] Lantus SoloStar 25 Units, Subcutaneous, Nightly levETIRAcetam (KEPPRA) 1,000 mg, Oral, 2 times daily lidocaine (Xylocaine) 5 % ointment Apply 2 times a day. magic mouthwash BLM (FIRST-Mouthwash) suspension 15 mL, Swish & Spit, 4 times daily before meals and nightly magnesium oxide (MAG-OX) 400 mg, Oral, 2 times daily, Hold for diarrhea melatonin tablet Take 2 tablets by mouth nightly. metFORMIN (GLUCOPHAGE) 1,000 mg, 2 times daily with meals metoprolol tartrate (LOPRESSOR) 25 mg, Oral, 3 times daily montelukast (Singulair) 10 MG tablet Take 1 tablet by mouth nightly. mupirocin (Bactroban) 2 % ointment Apply on head 2 times a day [Paused] NovoLOG FLEXPEN 100 UNIT/ML injection pen Sliding scale three times a day with correctionsand meals; BS 150-199=2units; BS 200-249=4units; BS 250- 229=6units; 300-349=8 units; 350-399=10 units; anything greater than 399=12units max of 36units daily nystatin (Mycostatin) 022674 UNIT/GM powder Apply on bottom 2 times a day ondansetron ODT (ZOFRAN-ODT) 4 mg, Oral, Every 6 hours PRN pantoprazole (PROTONIX) 40 mg, Daily pen needle, diabetic 31G X 5 MM misc Use as directed with insulin pen. polyethylene glycol (MIRALAX) 17 g, Oral, 2 times daily PRN prochlorperazine (COMPAZINE) 10 mg, Oral, Every 6 hours PRN [Paused] rivaroxaban (XARELTO) 20 mg, Daily with dinner [Paused] rOPINIRole (Requip) 1 MG tablet Take 1 tablet by mouth 2 times a day. [Paused] SITagliptin (JANUVIA) 50 mg, Every morning [Paused] triamterene-hydrochlorothiazide (Maxzide-25) 37.5-25 MG tablet Take 1 tablet by mouth every morning. Vitamin B-12 ER 1000 MCG tablet controlled-release 1 tablet, Daily Scheduled: Current Scheduled Medications[4] Continuous: Current Continuous Medications[5] As needed: sodium chloride, 10 mL, PRN Fluids: LR bolus Electrolytes: Continue to monitor and replace as appropriate Diet: NPO diet DVT prophylaxis: SCDs + On therapeutic anticoagulation Code status: Full Code Follow-up visit Future Appointments Date Time Provider Department Center 12/20/2024 10:30 AM [facility] JOSE MARTIN Vasquez 12/20/2024 11:00 AM Satnam Colvin MD [facility] 12/20/2024 12:30 PM [facility] 12/21/2024 2:30 PM [facility] 1 INFUSION TREATMENT [id number] 12/22/2024 2:30 PM [facility] 2 INFUSION TREATMENT [id number] 01/19/2025 9:20 AM MR 2 [facility] 01/19/2025 10:45 AM [facility] 03/08/2025 1:00 PM Teresita Oconnell MD [facility] Purvis APRN, DNP [1] Past Medical History: Diagnosis Date A-fib (CMS/HCC) Anxiety Brain tumor (CMS/HCC) Chemotherapy-induced nausea and vomiting 08/28/2023 COPD (chronic obstructive pulmonary disease) (CMS/HCC) Depression Heart failure Hyperlipidemia Hypertension Osteoarthritis Pneumonia Small cell lung cancer (CMS/HCC) Type 2 diabetes mellitus [2] Past Surgical History: Procedure Laterality Date BRAIN SURGERY TUBAL LIGATION N/A Tubal Ligation from [facility] TYMPANOSTOMY TUBE PLACEMENT N/A Ear Surgery Eustachian Tube from [facility] [3] Family History Problem Relation Name Age of Onset No Known Problems Mother No Known Problems Father Diabetes Other Fibromyalgia Other [4] lactated Ringer's, 500 mL, Intravenous, Once sodium chloride, 10 mL, Intravenous, q12h [5] heparin - COM Adult Low Dose Protocol - MAR calculator by anti-Xa, 0-35 Units/kg/hr, Last Rate:9.091 Units/kg/hr (12/16/24 0530) * Consults - Domingo Waldrop MD - 12/16/2024 2:12 AM EDTAssociated Order(s): IP CONSULT TO NEUROSURGERY Reason For Consult: Postop infection Requesting Service: ED Requested Date/Time: 12/16/2024 2:12 AM History Of Present Illness: Teresa Rivera is a 64 y.o. 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 Patient is present with her son, both of them discloses the she has presented 3 seizures a far, shehas not presented any more episodes since Keppra was started. However, she has been feeling fatigued, weak, and has not been able to eat in the last 3 days. Son also reports that she has been having difficulty breathing. Otherwise, the patient is at her neurological baseline. He is able to walk with out difficulties. He is about to complete her chemotherapy. Past Medical, Surgical, and Social History noncontributory except as mentioned in HPI Medications: Current Medications[1] Allergies: Cephalexin, Lisinopril, and Meloxicam Physical Exam GCS (EMV): 365 (pt was sleeping) Awake, alert, oriented x3 Follows commands appropriately Speech clear PERRL, EOMI ESQUEDA symmetrically, no drift Strength 5/5 throughout Sensation intact No Dodge, no clonus Purulent secretion from head incision Labs I personally reviewed the following pertinent labs Results from last 7 days Lab Units 12/15/24 2318 12/10/24 0706 12/09/24 0352 SODIUM mmol/L 140 142 143 POTASSIUM mmol/L 3.9 2.7* 3.2* CHLORIDE mmol/L 100 99 102 CO2 mmol/L 28 28 25 BUN mg/dL 19 9 9 CREATININE mg/dL 1.48* 1.35* 1.48* EGFR mL/min/1.73m*2 39.4 44.0 39.4 GLUCOSE mg/dL 132* 108* 110* CALCIUM mg/dL 9.1 8.7* 8.8* Imaging I personally reviewed CTH with findings similar to prior CTH including L frontal enhancement near and in surgical cavity Assessment and Plan Teresa Rivera is a 64 y.o. female with R craniotomy wound infection Assessment/Plan Active Problems: There are no active Hospital Problems. - NPO overnight - MRI brain w/wo - ESR/CRP - Blood cultures - Preop labs - Recommend holding hep drip until surgical plan finaziled, ok to start if risk of holding drip is higher than benefit - NPO Domingo Solo MD Resident Physician, PGY-2 Department of Neurosurgery [facility] [1] No current facility-administered medications for this encounter. Current Outpatient Medications Medication Sig Dispense Refill [...] Take 1 tablet by mouth every evening. Wufdezf-Xlwmmqxiwdt-Krjvgaqhkd (Breztri Aerosphere) 160-9-4.8 MCG/ACT aerosol Inhale 2 [...] mouth 3 times a day as needed. [Paused] insulin glargine (Lantus SoloStar) 100 UNIT/ML injection pen Inject 25 Units under the skin nightly. levETIRAcetam (Keppra) 1000 MG tablet Take 1 tablet by mouth 2 times a day. 60 tablet 5 lidocaine (Xylocaine) 5 % ointment Apply 2 times a day. 30 g 0 magic mouthwash BLM (FIRST-Mouthwash) suspension [...] a day with meals. metoprolol tartrate (Lopressor) 25 MG tablet Take 1 tablet by mouth 3 times a day. 90 tablet 5 montelukast (Singulair) 10 MG tablet Take 1 tablet by mouth nightly. mupirocin (Bactroban) 2 % ointment Apply on head 2 times a day (Patient taking differently: Apply 1Application topically 2 times a day. Apply on head 2 times a day) 22 g 0 [Paused] NovoLOG FLEXPEN 100 UNIT/ML injection pen Sliding scale three times a day with correctionsand meals; BS 150-199=2units; BS 200-249=4units; BS 250- 229=6units; 300-349=8 units; 350-399=10 units; anything greater than 399=12units max of 36units daily nystatin (Mycostatin) 069867 UNIT/GM powder Apply on bottom 2 times a day 30 g 0 ondansetron ODT (Zofran-ODT) 4 MG disintegrating tablet Dissolve 1 tablet on the tongue every 6 hours as needed for nausea or vomiting. 20 tablet 0 pantoprazole (Protonix) 40 MG EC tablet Take 1 tablet by mouth daily. Do not crush, chew, or split. pen needle, diabetic 31G X 5 MM misc Use as directed with insulin pen. 100 each 11 polyethylene glycol (Miralax) 17 g packet Take 17 g by mouth 2 times a day as needed (constipation). 60 packet 5 prochlorperazine (Compazine) 10 MG tablet Take 1 tablet by mouth every 6 hours as needed for nauseaor vomiting. 30 tablet 3 [Paused] rivaroxaban (Xarelto) 20 MG tablet Take 1 tablet by mouth 1 time each day with dinner. Take with food. [Paused] rOPINIRole (Requip) 1 MG tablet Take 1 tablet by mouth 2 times a day. [Paused] SITagliptin (Januvia) 50 MG tablet Take 1 tablet by mouth every morning. [Paused] triamterene-hydrochlorothiazide (Maxzide-25) 37.5-25 MG tablet Take 1 tablet by mouth every morning. Vitamin B-12 ER 1000 MCG tablet controlled-release Take 1 tablet by mouth Daily. Cosigned by Amilcar Farnsworth MD at 12/16/2024 3:02 PM EDT Associated attestation - Amilcar Farnsworth MD - 12/16/2024 3:02 PM EDT Signature only. Care will be transferred to the primary attending from neurosurgery team. * Care Plan - Donna Aquino RN - 12/15/2024 8:04 PM EDT Problem: Adult Inpatient Plan of Care Goal: Plan of Care Review Outcome: Ongoing, Progressing Goal: Patient-Specific Goal (Individualized) Outcome: Ongoing, Progressing Flowsheets (Taken 12/16/2024 1048) Patient/Family-Specific Goals (Include Timeframe): this shift Individualized Care Needs: pt will remain free of falls and injury Goal: Absence of Hospital-Acquired Illness or Injury Outcome: Ongoing, Progressing Goal: Optimal Comfort and Wellbeing Outcome: Ongoing, Progressing Problem: Fall Injury Risk Goal: Absence of Fall and Fall-Related Injury Outcome: Ongoing, Progressing * ED Provider Notes - Jimmy Jones DO - 12/15/2024 8:04 PM EDT Images from the original note were not included. 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 The patient was most recently admitted to our hospital and discharged on 12/10/2024. During this admission she did have seizures that were felt to be a new symptom of her metastatic spread of disease. She also had persistent fevers with the external otitis and headaches and was started on cefepime and ampicillin. Since discharge the patient has had progressive dyspnea that is significantly worsens with the ambulation and is associated with ambulatory hypoxia which often reaches 80% on her baseline 3 L. She has not had associated chest pain. She has had minimal swelling in her bilateral lower extremities. Inaddition to this, she tells me that she has been having purulent output from her postoperative wound from her prior craniotomy in August. She has not had fevers, but she has had chills and headaches. Patient History Past Medical History[1] Surgical History[2] Family History[3] Social History[4] Allergies: Allergies[5] Physical Exam ED Triage Vitals [12/15/24 2018] Temp Heart Rate Resp BP 37.1 ??C (98.8 ??F) 95 20 114/74 SpO2 Temp Source Heart Rate Source Patient Position 97 % Oral -- Sitting BP Location FiO2 (%) Right arm -- Physical Exam Constitutional: General: She is not in acute distress. Appearance: Normal appearance. HENT: Head: Comments: See MDM Right Ear: External ear normal. Left Ear: External ear normal. Nose: Nose normal. Mouth/Throat: Mouth: Mucous membranes are moist. Eyes: Extraocular Movements: Extraocular movements intact. Pupils: Pupils are equal, round, and reactive to light. Cardiovascular: Rate and Rhythm: Normal rate and regular rhythm. Pulmonary: Comments: See MDM Abdominal: General: Abdomen is flat. Palpations: Abdomen is soft. Tenderness: There is no abdominal tenderness. Musculoskeletal: General: No swelling or deformity. Normal range of motion. Cervical back: Normal range of motion and neck supple. Skin: General: Skin is warm and dry. Capillary Refill: Capillary refill takes less than 2 seconds. Neurological: General: No focal deficit present. Mental Status: She is alert and oriented to person, place, and time. [place] Coma Scale Score: 15 ED Course & MDM - Assessment: 64 y.o. female presents to ED with complaint of dyspnea that is worse with exertion as well as purulent output from her healing cranial incision site. 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 This complicates the clinical picture because it Comorbidities: may be exacerbating symptoms and increases the risk for morbidity On initial evaluation of the patient they were resting comfortably in no acute distress and nontoxic in appearance. They are hemodynamically stable, saturating well on baseline 3 L and are neurologically intact. On physical examination of the patient her heart and lungs are clear to auscultation bilaterally. She does have trace bilateral lower extremity edema. On examination of her scalp she does have scab formation along the high parietal aspect of her craniotomy incision. Upon compression of the scabbed lesion there is output purulence. I have removed this scalp to see if there is a skin defect underneath but there appears to be healthy granulation tissue present. On further expression there is continued output of purulence. There was no streaking erythema. Differential Diagnosis: Intracranial abscess, craniotomy site infection, cranial osteomyelitis, ACS/mi, pulmonary embolism, pulmonary edema, pleural effusion, pneumonia, among others. In order to fully explore the differential diagnosis the following treatments and tests were ordered: ED Medication Administration from 12/15/20242003 to 12/16/2024 0451 Date/Time Order Dose Route Action 12/16/2024 0033 EDT metoprolol tartrate (Lopressor) injection 5 mg 5 mg Intravenous Given 12/16/2024 0121 EDT iohexol (OMNIPaque) 350 MG/ML injection 100 mL 100 mL Intravenous Given 12/16/2024 0447 EDT metoprolol tartrate (Lopressor) injection 5 mg 5 mg Intravenous Given All Other Orders Ordered Status Ordering Provider 12/16/24 0303 CBC W/O Differential - HIT surveillance Daily Start Status Ordering Provider 12/17/24 0600 Scheduled TINA, JIMMY T 12/18/24 0600 Scheduled TINA, JIMMY T 12/19/24 0600 Scheduled TINA, JIMMY T 12/20/24 0600 Scheduled TINA, JIMMY T 12/21/24 0600 Scheduled TINA, JIMMY T 12/22/24 0600 Scheduled TINA, JIMMY T 12/23/24 0600 Scheduled TINA, JIMMY T 12/24/24 0600 Scheduled TINA, JIMMY T 12/25/24 0600 Scheduled TINA, JIMMY T 12/26/24 0600 Scheduled TINA, JIMMY T 12/27/24 0600 Scheduled TINA, JIMMY T 12/28/24 0600 Scheduled TINA, JIMMY T Acknowledged TINA, JIMMY T 12/16/24 0426 Type and Screen Once Acknowledged DOMINGO WALDROP 12/16/24 0450 Vital Signs Every 4 hours Placed in And Linked Group Acknowledged GORDY PURVIS 12/16/24 0450 Pulse Oximetry Every 4 hours Placed in And Linked Group Acknowledged MADUJIBEYA, GORDY N 12/16/24 0450 Neuro checks Every 4 hours Acknowledged MADUJIBERAINE, GORDY N 12/16/24 0303 Assess Sx of bleed Every 6 hours Comments: Notify physician for signs of increased bruising, bleeding gums, blood in urine or stool,bleeding at arterial stick sites and bleeding at surgical sites. Acknowledged JIMMY JONES 12/16/24 0450 Daily weights Daily Acknowledged MADUJIBERAINE GORDY N 12/16/24 0450 Telemetry Monitoring for Other Arrhythmias except Chronic Atrial Fibrillation Until discontinued Acknowledged MADUJIBEYA, GORDY N 12/16/24 0450 Do Not Give Nicotine Replacement Until discontinued Acknowledged MADUJIBEYA, GORDY N 12/16/24 0450 Continuous Pulse Oximetry (Needs additional Telemetry Order too) Until discontinued Acknowledged MADUJIBEYA, GORDY N 12/16/24 0450 Full code Continuous Acknowledged MADUJIBEYA, GORDY N 12/16/24 0450 Mobility Orders Until discontinued Acknowledged MADUJIBEYA, GORDY N 12/16/24 0450 Notify physician (specify parameters) Until discontinued Acknowledged MADUJIBEYA, GORDY N 12/16/24 0450 Insert peripheral IV Once Placed in And Linked Group Acknowledged MADUJIBEYA, GORDY N 12/16/24 0450 Saline lock IV Once Placed in And Linked Group Acknowledged MADUJIBEYA, GORDY N 12/16/24 0450 Multi Drug Resistance Test Once Acknowledged MADUJIBEYA, GORDY N 12/16/24 0450 Admit to inpatient Once Acknowledged KENTONUJIBEYA, GORDY N 12/16/24 0436 Sedimentation Rate, Automated STAT Collected DOMINGO WALDROP 12/16/24 0436 C-reactive protein STAT Collected DOMINGO WALDROP 12/16/24 0436 Blood Culture (Aerobic/Anaerobet Set) Once Collected DOMINGO WALDROP 12/16/24 0426 Magnesium, Plasma STAT Collected DOMINGO WALDROP 12/16/24 0426 Basic Metabolic Panel, Plasma STAT Collected DOMINGO WALDROP 12/16/24 0426 CBC W/O Differential STAT Collected TAVON DOMINGO SOLO 12/16/24 0426 Prothrombin Time/INR STAT Acknowledged DOMINGO WALDROP 12/16/24 0426 APTT STAT Acknowledged DOMINGO WALDROP 12/16/24 0426 Phosphorus, Plasma STAT Collected MONTES DE OCA DOMINGO SOLO 12/16/24 0424 ECG Adult Once Preliminary result GORDY PURVIS N 12/16/24 0426 MR Head w and wo IV Contrast Once Acknowledged DOMINGO WALDROP 12/16/24 0426 NPO diet Diet effective midnight Acknowledged DOMINGO WALDROP 12/16/24 0303 Non-bolus heparin strategy Until discontinued Comments: Patient not appropriate to receive bolus or re-bolus. Adjust Heparin rate according to Heparin protocol. Acknowledged JIMMY JONES 12/16/24 0303 D/C all other Heparin products when heparin drip started. Until discontinued Acknowledged JIMMY JONES 12/16/24 0303 Infusion Rate Adjustment per Protocol Until discontinued Comments: CHART ALL DOSE ADJUSTMENTS. DOUBLE CHECK ANY RATE CHANGES. Acknowledged JIMMY JONES 12/16/24 0303 Anti Xa Level by Unfractionated Heparin - Baseline Once timed Final result JIMMY JONES 12/16/24 0303 CBC W/O Differential - Baseline Once Comments: If not done in the past 24 hours. Final result JIMMY JONES 12/16/24 0303 Protime-INR Once Comments: If no PT done in the last 24 hours. Final result JIMMY JONES 12/16/24 0204 Consult to Neurosurgery Once Specialty: Neurosurgery Provider: (Not yet assigned) Acknowledged JIMMY JONES 12/15/24 2354 Troponin T, High Sensitivity, 2 Hour, Plasma PROCEDURE ONCE Final result JIMMY JONES 12/16/24 0030 EKG now - STAT (adult) Once Preliminary result AILYN CABRERA 12/15/24 234 Initiate contact isolation Continuous Comments: Added via Instant Order OPA Acknowledged BPA, INSTANT ORDERS 12/15/242342 Initiate droplet isolation Continuous Comments: Added via Instant Order OPA Acknowledged BPA, INSTANT ORDERS 12/15/24 234 Initiate N95 isolation Continuous Comments: Added via Instant Order OPA Acknowledged BPA, INSTANT ORDERS 12/15/24 2343 Initiate eye protection Continuous Comments: Added via Instant Order OPA Acknowledged BPA, INSTANT ORDERS 12/15/24 2343 Initiate contact isolation Continuous Comments: Added via Instant Order OPA Acknowledged BPA, INSTANT ORDERS 12/15/24 2343 Initiate droplet isolation Continuous Comments: Added via Instant Order OPA Acknowledged BPA, INSTANT ORDERS 12/15/24 2343 Initiate N95 isolation Continuous Comments: Added via Instant Order OPA Acknowledged BPA, INSTANT ORDERS 12/15/24 2343 Initiate eye protection Continuous Comments: Added via Instant Order OPA Acknowledged BPA, INSTANT ORDERS 12/15/[address] Angio Pulmonary Embolism Once Final result JIMMY JONES 12/15/242136 Blood Culture (Aerobic/Anaerobet Set) STAT Preliminary result JIMMY JONES 12/15/242136 Once Canceled JIMMY JONES 12/15/242136 C-reactive protein STAT Final result JIMMY JONES 12/15/242136 Sed rate, automated STAT Final result JIMMY JONES 12/15/242136 STAT Canceled JIMMY JONES 12/15/242136 Nasopharyngeal Respiratory Panel Once Final result JIMMY JONES 12/15/242136 Once Canceled JIMMY JONES 12/15/242136 SARS CoV-2/COVID-19 by PCR - Rapid PROCEDURE ONCE Final result JIMMY JONES 12/15/242136 CT Head w and wo IV Contrast Once Final result AILYN CABRERA 12/15/242136 CMP STAT Final result JIMMY JONES 12/15/242136 Lipase STAT Final result JIMMY JONES 12/15/242136 Troponin now and 120 min STAT Final result JIMMY JONES 12/15/242136 BNP STAT Final result JIMMY JONES 12/15/242136 Blood gas panel, venous STAT Final result JIMMY JONES 12/15/242136 XR Chest 1 View One time imaging Final result JIMMY JONES 12/15/242020 ECG Adult Once Preliminary result AILYN CABRERA 12/16/24 0303 Anti Xa Level by Unfractionated Heparin - Heparin Drip Titration As needed Comments: Anti-Xa levels should be checked q6h until within target range X 2 consecutive levels, then can check anti-Xa daily with AM labs. Call Physician for Anti Xa greater than or equal to 1 unit / mL or signs and symptoms of bleeding, hematoma or thrombosis. NOTIFY MD IF NOT IN THERAPEUTIC RANGE WITHIN 24 HOURS. Acknowledged TINA JIMMY Leticia Initial EKG was personally interpreted by me and demonstrated normal sinus rhythm with a rate of 95beats per minute, left axis, no KS prolongation, narrow QRS, no QTC prolongation. There is incomplete right bundle-branch block morphology. No ST elevation or depression. There are intermittent PACs. Initial EKG was personally interpreted by me and demonstrated normal sinus rhythm with a rate of 95beats per minute, left axis, no KS prolongation, narrow QRS, no QTC prolongation. There is incomplete right bundle-branch block morphology. No ST elevation or depression. There are intermittent PACs. During the patient's stay in the emergency department she did develop atrial fibrillation with rapid ventricular response. At this time an EKG was repeated. This EKG was personally interpreted by me and demonstrated atrial fibrillation with a rate of 150 beats per minute, normal axis, narrow QRS, no QTC prolongation. No ST elevation or depression. No overt signs of ischemia We did treat her atrial fibrillation with a RVR with 5 mg of metoprolol IV push. This did achieve adequate rate control. Labs were personally interpreted by me and demonstrate nonischemic troponins. VBG shows mild hypercapnia with no evidence of acidosis. Despite being on Xarelto her anti Xa level is undetectably low. Her creatinine is stable from prior as well as her anemia. Nasopharyngeal swab and COVID swabs are negative. Chest x-ray was obtained and personally interpreted by me and demonstrates no evidence of pneumothorax. Official radiology read is in agreement states that there is a stable appearance of her chest with the no change in her right upper lobe opacity.Given these findings I do not feel that pneumonia adequately explains her dyspnea. We did obtain a CT pulmonary embolism study that was interpreted by Radiology and demonstrates bilateral segmental and subsegmental pulmonary emboli with greatest involvement in the right lower lobe and no evidence of right heart strain. Given that she has remained hemodynamically stable and her tropes are less than 100 she does not meet criteria for activating he pulmonary embolism response team. Regarding the purulent output from her cranial incision site we did also obtain inflammatory markers as well as a CT head with and without contrast. She does not have a leukocytosis, however she doeshave an elevated CRP of 50 and an elevated sed rate of 50. 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 Given these findings I did have an interactive discussion with the Neurosurgery Service who agreed to evaluate the patient in the emergency department. After our discussion their evaluation they do state that she may likely need surgery. We had a very lengthy discussion about starting anticoagulation in the setting of her pulmonary emboli and also potentially necessitating surgery in the morning.Given that she has experienced atrial fibrillation with rapid ventricular response in the emergencydepartment we ultimately decided to start the patient on a low-dose heparin drip without initiatingthe heparin bolus. Later in the patient's stay in the emergency department she did develop atrial fibrillation with rapid ventricular response again. She maintained hemodynamic stability during this episode with a map greater than 65. She was treated again with 5 mg of metoprolol IV push and her heart rate did improve. At this time we also administered 25 mg of metoprolol tartrate orally for ongoing rate control. Due to her significant comorbidities and pulmonary emboli, neurosurgery felt that she was more appropriate for Medicine admission. Therefore I had an interactive discussion with the Internal MedicineService who agreed to evaluate the patient in the emergency department. After our discussion and their evaluation they agreed to admit the patient to their service and accept primary responsibility of the patient moving forward. Clinical Impressions as of 12/16/24 0554 Incisional infection Multiple subsegmental pulmonary emboli without acute cor pulmonale (CMS/HCC) Atrial fibrillation with RVR (CMS/HCC) History of lung cancer Social Determinates of Health Risks (including Economic Stability, Education and level of understanding, Healthcare access and quality and concerning social factors): None identified on this visit Ultimately, this patient was Was admitted (Admission) The primary encounter diagnosis was Incisional infection. Diagnoses of Multiple subsegmental pulmonary emboli without acute cor pulmonale (CMS/HCC), Atrial fibrillation with RVR (CMS/HCC), and History of lung cancer were also pertinent to this visit.. Patient believed to require admission for the listed diagnoses. The Internal Medicine service was consulted for admission and was agreeable to admit to Acute Floor (Med/Surg). ED Prescriptions None Disposition Admit Admitting/Attending Physician: DESI POP [[id number]] Provider Care Team: LEONA YU 6 [[id number]] Are they the primary team?: Yes [1] - [1] Past Medical History: Diagnosis Date A-fib (CMS/HCC) Anxiety Brain tumor (CMS/HCC) Chemotherapy-induced nausea and vomiting 08/28/2023 COPD (chronic obstructive pulmonary disease) (CMS/HCC) Depression Heart failure Hyperlipidemia Hypertension Osteoarthritis Pneumonia Small cell lung cancer (CMS/HCC) Type 2 diabetes mellitus [2] Past Surgical History: Procedure Laterality Date BRAIN SURGERY TUBAL LIGATION N/A Tubal Ligation from [facility] TYMPANOSTOMY TUBE PLACEMENT N/A Ear Surgery Eustachian Tube from [facility] [3] Family History Problem Relation Name Age [...] Nausea and Vomiting Lisinopril Cough Meloxicam Nausea Jimmy Jones DO Resident 12/16/24 0554 Cosigned by Ailyn Cabrera MD at 12/16/2024 6:39 AM EDT Associated attestation - Ailyn Cabrera MD - 12/16/2024 6:39 AM EDT I saw and evaluated the patient with the resident/fellow. I discussed the case with the resident/fellow and agree with the findings and plan as documented. * ED Triage Notes - Alexandra Read RN - 12/15/2024 8:04 PM EDT Pt Spo2 been going down to 81%, went to PCP and recommended coming to ER to evaluated. DC from hospital Thursday for infection. Dc Thursday for infections documented in this encounter Plan of Treatment Upcoming Encounters Date Type Department Care Team (Late st Contact Info) Description 01/05/2025 1:00 PM EDT Office Visit [facility] [address] [place] [address] Lia Barnes, RIPENING ROOM OPERATOR [address] [facility] [address] [place] [address] 01/10/2025 9:00 AM EDT Clinical Support [facility] [address] [facility]nd [place] [address] 01/10/2025 9:40 AM EDT Office Visit [facility] [address] [facility]nd [place] [address] Satnam Colvin MD [address] [facility] N[address] Deg[facility] [address] [place] [address] 01/10/2025 12:00 PM EDT Appointment [facility] [address] [place] [address] 01/11/2025 3:30 PM EDT Appointment [facility] [address] [place] [address] 01/12/2025 3:30 PM EDT Appointment [facility] [address] [place] [address] 01/19/2025 9:20 AM EDT Appointment [facility] [address] [place] [address] 01/19/2025 10:45 AM EDT Office Visit [place] [facility] [address], [address] [place] [address] Abhilash Bangura MD [address] [place] [address] 01/26/2025 4:30 PM EDT Office Visit [facility] [address] [facility] [place] [address] Lia Barnes, RIPENING ROOM OPERATOR [address] [facility] [address] [place] [address] 03/08/2025 1:00 PM EDT Office Visit [facility] [address] [place] [address] Teresita Oconnell MD [address] [place] [address] Pending Results Name Type Priority Associated Diagnoses Date /Time AFB Culture, Non Respiratory Source and Acid Fast Stain Microbiology Routine Incisional infection 12/16/2024 1:59 PM EDT documented as of this encounter Procedures Procedure Name Priority Date/Time Associated Diagnosis Comments POCT GLUCOSE METER UNSOLICITED RESULTS Routine 12/22/2024 12:43 PM EDT POCT GLUCOSE METER UNSOLICITED RESULTS Routine 12/22/2024 8:11 AM EDT CBC W/O DIFFERENTIAL Routine 12/22/2024 12:26 AM EDT MAGNESIUM, PLASMA Routine 12/22/2024 12: 26 AM EDT BASIC METABOLIC PANEL, PLASMA Routine 12/22/2024 12:26 AM EDT POCT GLUCOSE METER UNSOLICITED RESULTS Routine 12/21/2024 9:17 PM EDT POCT GLUCOSE METER UNSOLICITED RESULTS Routine 12/21/2024 5:44 PM EDT POCT GLUCOSE METER UNSOLICITED RESULTS Routine 12/21/2024 12:11 PM EDT POCT GLUCOSE METER UNSOLICITED RESULTS Routine 12/21/2024 8:04 AM EDT ANTI XA LEVEL UNFRACTIONATED HEPARIN STAT 12/21/2024 7:30 AM EDT ANTI XA LEVEL UNFRACTIONATED HEPARIN STAT 12/21/2024 1:04 AM EDT CBC W/O DIFFERENTIAL STAT 12/21/2024 1:04 AM EDT POCT GLUCOSE METER UNSOLICITED RESULTS Routine 12/20/2024 7:55 PM EDT POCT GLUCOSE METER UNSOLICITED RESULTS Routine 12/20/2024 5:12 PM EDT POCT GLUCOSE METER UNSOLICITED RESULTS Routine 12/20/2024 12:47 PM EDT POCT GLUCOSE METER UNSOLICITED RESULTS Routine 12/20/2024 7:46 AM EDT ANTI XA LEVEL UNFRACTIONATED HEPARIN STAT 12/20/2024 2:20 AM EDT CBC W/O DIFFERENTIAL STAT 12/20/2024 2:20 AM EDT PHOSPHORUS, PLASMA Routine 12/20/2024 2: 20 AM EDT MAGNESIUM, PLASMA Routine 12/20/2024 2:2 0 AM EDT COMPREHENSIVE METABOLIC PANEL, PLASMA Routine 12/20/2024 2:20 AM EDT ANTI XA LEVEL UNFRACTIONATED HEPARIN STAT 12/19/2024 10:29 PM EDT POCT GLUCOSE METER UNSOLICITED RESULTS Routine 12/19/2024 8:18 PM EDT POCT GLUCOSE METER UNSOLICITED RESULTS Routine 12/19/2024 5:09 PM EDT ANTI XA LEVEL UNFRACTIONATED HEPARIN STAT 12/19/2024 3:33 PM EDT POCT GLUCOSE METER UNSOLICITED RESULTS Routine 12/19/2024 11:58 AM EDT POCT GLUCOSE METER UNSOLICITED RESULTS Routine 12/19/2024 8:09 AM EDT ANTI XA LEVEL UNFRACTIONATED HEPARIN STAT 12/19/2024 6:19 AM EDT MAGNESIUM, PLASMA Routine 12/19/2024 6:1 9 AM EDT TSH REFLEX FT4 Routine 12/19/2024 12:25 AM EDT N-TERMINAL PROBNP, PLASMA Routine 12/19/2024 12:25 AM EDT CBC W/O DIFFERENTIAL STAT 12/19/2024 12:25 AM EDT PHOSPHORUS, PLASMA Routine 12/19/2024 12 :25 AM EDT MAGNESIUM, PLASMA Routine 12/19/2024 12: 25 AM EDT COMPREHENSIVE METABOLIC PANEL, PLASMA Routine 12/19/2024 12:25 AM EDT INSERT PICC LINE Routine 12/18/2024 11:4 0 PM EDT POCT GLUCOSE METER UNSOLICITED RESULTS Routine 12/18/2024 7:27 PM EDT XR CHEST 1 VIEW STAT 12/18/2024 6:26 PM EDT ECG ADULT STAT 12/18/2024 4:47 PM EDT POCT GLUCOSE METER UNSOLICITED RESULTS Routine 12/18/2024 4:39 PM EDT INSERT PERIPHERAL IV Routine 12/18/2024 2:20 PM EDT TRANSFUSE RED BLOOD CELLS Routine 12/18/2024 12:44 PM EDT POCT GLUCOSE METER UNSOLICITED RESULTS Routine 12/18/2024 11:59 AM EDT INSERT PERIPHERAL IV Routine 12/18/2024 9:58 AM EDT PREPARE RBC Routine 12/18/2024 9:09 AM EDT POCT GLUCOSE METER UNSOLICITED RESULTS Routine 12/18/2024 7:55 AM EDT CBC W/O DIFFERENTIAL STAT 12/18/2024 5:16 AM EDT MAGNESIUM, PLASMA Routine 12/18/2024 5:1 6 AM EDT COMPREHENSIVE METABOLIC PANEL, PLASMA Routine 12/18/2024 5:16 AM EDT HEMOGLOBIN AND HEMATOCRIT, BLOOD Routine 12/17/2024 9:59 PM EDT INSERT PERIPHERAL IV STAT 12/17/2024 9:45 PM EDT POCT GLUCOSE METER UNSOLICITED RESULTS Routine 12/17/2024 9:09 PM EDT CBC W/O DIFFERENTIAL STAT 12/17/2024 3:22 PM EDT TYPE AND SCREEN Routine 12/17/2024 3:22 PM EDT PHOSPHORUS, PLASMA Routine 12/17/2024 3: 22 PM EDT MAGNESIUM, PLASMA Routine 12/17/2024 3:2 2 PM EDT COMPREHENSIVE METABOLIC PANEL, PLASMA Routine 12/17/2024 3:22 PM EDT WILBUR AURIS SURVEILLANCE BY PCR Routine 12/17/2024 4:24 AM EDT POCT GLUCOSE METER UNSOLICITED RESULTS Routine 12/16/2024 7:29 PM EDT POCT GLUCOSE METER UNSOLICITED RESULTS Routine 12/16/2024 4:55 PM EDT FUNGAL CULTURE, TISSUE AND GARO Routine 12/16/2024 1:59 PM EDT Incisional infection BONE CULTURE AND GRAM STAIN Routine 12/16/2024 1:59 PM EDT Incisional infection AFB CULTURE, NON RESPIRATORY SOURCE AND ACID FAST STAIN Routine 12/16/2024 1:59 PM EDT Incisional infection ANAEROBIC CULTURE Routine 12/16/2024 1:5 9 PM EDT Incisional infection ROUTINE CULTURE AND GRAM STAIN Routine 12/16/2024 1:58 PM EDT Incisional infection FUNGAL CULTURE, ROUTINE Routine 12/17/19 1:58 PM EDT Incisional infection ANAEROBIC CULTURE Routine 12/16/2024 1:5 8 PM EDT Incisional infection KS DEBRIDEMENT, SKIN, SUB-Q TISSUE,MUSCLE,=<20 SQ CM 12/16/2024 1:15 PM EDT Incisional infection POCT GLUCOSE METER UNSOLICITED RESULTS Routine 12/16/2024 12:53 PM EDT RESPIRATORY CULTURE AND GRAM STAIN Routine 12/16/2024 8:47 AM EDT STREPTOCOCCUS PNEUMONIAE AND LEGIONELLA URINARY ANTIGEN Routine 12/16/2024 8:39 AM EDT HISTOPLASMA GALACTOMANNAN EIA, URINE (SO) Routine 12/16/2024 8:39 AM EDT POCT GLUCOSE METER UNSOLICITED RESULTS Routine 12/16/2024 8:28 AM EDT APTT STAT 12/16/2024 8:24 AM EDT PROTHROMBIN TIME(PT) / INR STAT 12/16/2024 8:24 AM EDT MULTI DRUG RESISTANCE TEST Routine 12/16/2024 7:50 AM EDT METHICILLIN RESISTANT STAPHYLOCOCCUS AUREUS (MRSA) BY PCR Routine 12/16/2024 7:50 AM EDT PROCALCITONIN, PLASMA Add-On 12/16/2024 5:52 AM EDT BLOOD CULTURE (AEROBIC/ANAEROBIC SET) Routine 12/16/2024 5:52 AM EDT SEDIMENTATION RATE, AUTOMATED STAT 12/16/2024 5:52 AM EDT CBC W/O DIFFERENTIAL STAT 12/16/2024 5:52 AM EDT C-REACTIVE PROTEIN, PLASMA STAT 12/16/2024 5:52 AM EDT PHOSPHORUS, PLASMA STAT 12/16/2024 5: 52 AM EDT MAGNESIUM, PLASMA STAT 12/16/2024 5:5 2 AM EDT BASIC METABOLIC PANEL, PLASMA STAT 12/16/2024 5:52 AM EDT ECG ADULT STAT 12/16/2024 4:31 AM EDT PROTHROMBIN TIME(PT) / INR STAT 12/16/2024 3:36 AM EDT ANTI XA LEVEL UNFRACTIONATED HEPARIN STAT 12/16/2024 3:36 AM EDT TROPONIN T, HIGH SENSITIVITY, 2 HOUR, PLASMA Timed 12/16/2024 1:[address] ANGIO PULMONARY EMBOLISM STAT 12/16/2024 1:[address] HEAD W AND WO IV CONTRAST STAT 12/16/2024 1:30 AM EDT ECG ADULT STAT 12/16/2024 12:47 AM EDT SARS COV-2/COVID-19 BY PCR - RAPID STAT 12/15/2024 11:19 PM EDT NASOPHARYNGEAL RESPIRATORY PANEL STAT 12/15/2024 11:19 PM EDT TROPONIN T, HIGH SENSITIVITY, 0 HOUR, PLASMA, REFLEX TO 2 HOUR STAT 12/15/2024 11:18 PM EDT N-TERMINAL PROBNP, PLASMA STAT 12/15/2024 11:18 PM EDT BLOOD CULTURE (AEROBIC/ANAEROBIC SET) STAT 12/15/2024 11:18 PM EDT SEDIMENTATION RATE, AUTOMATED STAT 12/15/2024 11:18 PM EDT CBC W/O DIFFERENTIAL Add-On 12/15/2024 11:18 PM EDT C-REACTIVE PROTEIN, PLASMA STAT 12/15/2024 11:18 PM EDT LIPASE, PLASMA STAT 12/15/2024 11:18 PM EDT BLOOD GAS PANEL, VENOUS STAT 12/16/19 25 11:18 PM EDT COMPREHENSIVE METABOLIC PANEL, PLASMA STAT 12/15/2024 11:18 PM EDT XR CHEST 1 VIEW STAT 12/15/2024 10:01 PM EDT ECG ADULT STAT 12/15/2024 8:23 PM EDT documented in this encounter Results * (ABNORMAL) POCT glucose meter (12/22/2024 12:43 PM EDT) Pathologist [facility] [place] POCT Glucose 189(H) 74 - 99 mg/dL 12/22/2024 12:45 PM EDT [facility] Comment:Accuracy of [...] to the main labortory for testing. Comment 12/22/2024 12:45 PM EDT [facility] Pediatric Urologist ID Marciano Mai 12/22/2024 12:45 PM EDT [facility] Device ID [id number] 12/22/2024 12:45 PM EDT HEALTHCARE LAB Specimen Type POC Capillary 12/22/2024 12:45 PM EDT [facility]ALTH[facility]ARE LAB Blood Capillary blood specimen / Unknown 12/22/2024 12:43 PM EDT 12/22/2024 12:45 PM EDT us Yosi Richmond MD LAB POINT OF CARE T EST DOCKED DEVICE UNSOLICITED RESULTS Final Result [facility] [address] [place] [address] * (ABNORMAL) POCT glucose meter (12/22/2024 8:11 AM EDT) Pathologist [facility] [place] POCT Glucose 117(H) 74 - 99 mg/dL 12/22/2024 8:13 AM EDT [facility] Comment:Accuracy of [...] to the main labortory for testing. Comment 12/22/2024 8:13 AM EDT [facility] Pediatric Urologist ID Marciano Mai 12/22/2024 8:13 AM EDT [facility] Device ID [id number] 12/22/2024 8:13 AM EDT HEALTHCARE LAB Specimen Type POC Capillary 12/22/2024 8:13 AM EDT [facility] Blood Capillary blood specimen / Unknown 12/22/2024 8:11 AM EDT 12/22/2024 8:13 AM EDT Yosi Richmond MD LAB POINT OF CARE T EST DOCKED DEVICE UNSOLICITED RESULTS Final Result Performing Organization Address City/[facility]/ZIP Co de Phone Number [facility] [address] [place] [address] * (ABNORMAL) Magnesium (12/22/2024 12:26 AM EDT) Pathologist [facility] [place] Magnesium, Plasma 1.1(L) 1.9 - 2.4 mg/dL 12/22/2024 1:04 AM EDT [facility] Blood Venous blood specimen / Unknown Venipuncture / Unknown 12/22/2024 12:26 AM EDT 12/22/2024 12:35 AM EDT us Yosi Richmond MD LAB BLOOD ORDERABLES Final Result [facility] [address] [place] [address] * (ABNORMAL) CBC W/O Differential (12/22/2024 12:26 AM EDT) WBC Count 5.98 3.70 - 10.30 10*3/uL LAB HEMATOLOGY METHOD 12/22/2024 12:43 AM EDT [facility] RBC Count 2.50(L) 3.90 - 5.20 10*6/uL LAB HEMATOLOGY METHOD 12/22/2024 12:43 AM EDT [facility] HGB 7.3(L) 11.2 - 15.7 g/dL LAB HEMATOLOGY METHOD 12/22/2024 12:43 AM EDT [facility] HCT 23.7(L) 34.0 - 45.0 % LAB HEMATOLOGY METHOD 12/22/2024 12:43 AM EDT [facility] Platelet Count 152(L) 155 - 369 10*3/uL LAB HEMATOLOGY METHOD 12/22/2024 12:43 AM EDT [facility] MCV 95 79 - 98 fL LAB HEMATOLOGY METHOD 12/22/2024 12:43 AM EDT [facility] MCH 29.2 26.0 - 32.0 pg LAB HEMATOLOGY METHOD 12/22/2024 12:43 AM EDT [facility] MCHC 30.8 30.7 - 35.5 g/dL LAB HEMATOLOGY METHOD 12/22/2024 12:43 AM EDT [facility] RDW 19.8(H) 11.5 - 14.5 % LAB HEMATOLOGY METHOD 12/22/2024 12:43 AM EDT [facility] MPV 9.7 8.8 - 12.5 fL LAB HEMATOLOGY METHOD 12/22/2024 12:43 AM EDT [facility] nRBC 0.0 <=0.0 per 100 WBCs LAB HEMATOLOGY METHOD 12/22/2024 12:43 AM EDT [facility] Blood Venous blood specimen / Unknown Venipuncture / Unknown 12/22/2024 12:26 AM EDT 12/22/2024 12:36 AM EDT us Yosi Richmond MD LAB BLOOD ORDERABLES Final Result [facility] [address] [place] [address] * (ABNORMAL) Basic metabolic panel (12/22/2024 12:26 AM EDT) Glucose, Plasma 160(H) 74 - 99 mg/dL 12/22/2024 1:04 AM EDT [facility] BUN, Plasma 7(L) 8 - 23 mg/dL 12/22/2024 1:04 AM EDT [facility] Creatinine, Plasma 0.96 0.60 - 1.10 mg/dL 12/22/2024 1:04 AM EDT [facility] BUN/Creatinine Ratio 7 12/22/2024 1:04 AM EDT [facility] Sodium, Plasma 144 136 - 145 mmol/L 12/22/2024 1:04 AM EDT [facility] Potassium, Plasma 3.0(L) 3.6 - 4.9 mmol/L 12/22/2024 1:04 AM EDT [facility] Chloride, Plasma 110(H) 97 - 107 mmol/L 12/22/2024 1:04 AM EDT [facility] CO2, Plasma 24 22 - 29 mmol/L 12/22/2024 1:04 AM EDT [facility] Anion Gap 10 6 - 16 mmol/L 12/22/2024 1:04 AM EDT [facility] Total Calcium, Plasma 8.3(L) 8.9 - 10.2 mg/dL 12/22/2024 1:04 AM EDT [facility] eGFRcr 66.2 mL/min/1.7 3m*2 12/22/2024 1:04 AM EDT [facility] Comment:Reported eGFRcr in m L/min/1.73m2 is based the CKD-EPI 2020 equation that does not use a race coefficient. Blood Venous blood specimen / Unknown Venipuncture / Unknown 12/22/2024 12:26 AM EDT 12/22/2024 12:35 AM EDT us Yosi Richmond MD LAB BLOOD ORDERABLES Final Result [facility] [address] [place] [address] * (ABNORMAL) POCT glucose meter (12/21/2024 9:17 PM EDT) POCT Glucose 180(H) 74 - 99 mg/dL 12/21/2024 9:18 PM EDT [facility] Comment:Accuracy of a glucos e result obtained from a capillary whole blood specimen relies upon adequate, non-compromised capillary blood flow. If the capillary glucose result is not consistent with the patient's clinical signs and symptoms, glucose testing should be repeated with either an arterial or venous sample on the glucometer or sent to the main labortory for testing. Comment 12/21/2024 9:18 PM EDT [facility] Pediatric Urologist ID Anh Rankin 12/21/2024 9:18 PM EDT [facility] Device ID [id number] 12/21/2024 9:18 PM EDT [facility] Specimen Type POC Capillary 12/21/2024 9:18 PM EDT [facility] Blood Capillary blood specimen / Unknown 12/21/2024 9:17 PM EDT 12/21/2024 9:18 PM EDT Yosi Richmond MD LAB POINT OF CARE T EST DOCKED DEVICE UNSOLICITED RESULTS Final Result Performing Organization Address City/[facility]/ZIP Co de Phone Number [facility] [address] [place] [address] * (ABNORMAL) POCT glucose meter (12/21/2024 5:44 PM EDT) POCT Glucose 142(H) 74 - 99 mg/dL 12/21/2024 5:46 PM EDT [facility] Comment:Accuracy of [...] to the main labortory for testing. Comment 12/21/2024 5:46 PM EDT [facility] Pediatric Urologist ID Marciano Mai 12/21/2024 5:46 PM EDT [facility] Device ID [id number] 12/21/2024 5:46 PM EDT [facility] Specimen Type POC Capillary 12/21/2024 5:46 PM EDT [facility] Blood Capillary blood specimen / Unknown 12/21/2024 5:44 PM EDT 12/21/2024 5:46 PM EDT us Yosi Richmond MD LAB POINT OF CARE T EST DOCKED DEVICE UNSOLICITED RESULTS Final Result [facility] [address] [place] [address] * (ABNORMAL) POCT glucose meter (12/21/2024 12:11 PM EDT) POCT Glucose 151(H) 74 - 99 mg/dL 12/21/2024 12:14 PM EDT [facility] Comment:Accuracy of [...] to the main labortory for testing. Comment 12/21/2024 12:14 PM EDT [facility] Pediatric Urologist ID Emily Vera 025 12:14 PM EDT [facility] Device ID [id number] 12/21/2024 12:14 PM EDT [facility] Specimen Type POC Capillary 12/21/2024 12:14 PM EDT [facility] Blood Capillary blood specimen / Unknown 12/21/2024 12:11 PM EDT 12/21/2024 12:14 PM EDT us Yosi Richmond MD LAB POINT OF CARE T EST DOCKED DEVICE UNSOLICITED RESULTS Final Result Performing Organization Address City/State/[facility] Co de Phone Number [facility] [address] [place] [address] * (ABNORMAL) POCT glucose meter (12/21/2024 8:04 AM EDT) [facility] Signature POCT Glucose 138(H) 74 - 99 mg/dL 12/21/2024 8:05 AM EDT [facility] Comment:Accuracy of a glucos e result obtained from a capillary whole blood specimen relies upon adequate, non-compromised capillary blood flow. If the capillary glucose result is not consistent with the patient's clinical signs and symptoms, glucose testing should be repeated with either an arterial or venous sample on the glucometer or sent to the main labortory for testing. Comment 12/21/2024 8:05 AM EDT [facility] Pediatric Urologist ID Marciano Mai 12/21/2024 8:05 AM EDT [facility] Device ID [id number] 12/21/2024 8:05 AM EDT [facility] Specimen Type POC Capillary 12/21/2024 8:05 AM EDT [facility] Blood Capillary blood specimen / Unknown 12/21/2024 8:04 AM EDT 12/21/2024 8:05 AM EDT us Yosi Richmond MD LAB POINT OF CARE T EST DOCKED DEVICE UNSOLICITED RESULTS Final Result [facility] [address] [place] [address] * Anti Xa Level by Unfractionated Heparin - Heparin Drip Titration (12/21/2024 7:30 AM EDT) Anti Xa Level Unfractionated Heparin 0.56 <1.00 IU/mL LAB COAGULATION METHOD 12/21/2024 8:08 AM EDT [facility] Blood Venous blood specimen / Unknown Venipuncture / Unknown 12/21/2024 7:30 AM EDT 12/21/2024 7:38 AM EDT Narrative [facility] - 12/21/2024 8:08 AM EDT Therapeutic Range: UFH Full Dose and ACS/AL protocols*: 0.30 - 0.70 IU/mL UFH Low Dose protocol*: 0.25 - 0.50 IU/mL UFH prophylaxis: Not established us Ailyn Cabrera MD LAB BLOOD ORDERABLES Final Re sult Performing Organization Address City/[facility]/ZIP Co de Phone Number [facility] [address] [place] [address] * (ABNORMAL) CBC W/O Differential - HIT surveillance (12/21/2024 1:04 AM EDT) WBC Count 5.76 3.70 - 10.30 10*3/uL LAB HEMATOLOGY METHOD 12/21/2024 1:20 AM EDT [facility] RBC Count 2.41(L) 3.90 - 5.20 10*6/uL LAB HEMATOLOGY METHOD 12/21/2024 1:20 AM EDT [facility] HGB 7.3(L) 11.2 - 15.7 g/dL LAB HEMATOLOGY METHOD 12/21/2024 1:20 AM EDT [facility] HCT 23.2(L) 34.0 - 45.0 % LAB HEMATOLOGY METHOD 12/21/2024 1:20 AM EDT [facility] Platelet Count 149(L) 155 - 369 10*3/uL LAB HEMATOLOGY METHOD 12/21/2024 1:20 AM EDT [facility] MCV 96 79 - 98 fL LAB HEMATOLOGY METHOD 12/21/2024 1:20 AM EDT [facility] MCH 30.3 26.0 - 32.0 pg LAB HEMATOLOGY METHOD 12/21/2024 1:20 AM EDT [facility] MCHC 31.5 30.7 - 35.5 g/dL LAB HEMATOLOGY METHOD 12/21/2024 1:20 AM EDT [facility] RDW 19.4(H) 11.5 - 14.5 % LAB HEMATOLOGY METHOD 12/21/2024 1:20 AM EDT [facility] MPV 9.4 8.8 - 12.5 fL LAB HEMATOLOGY METHOD 12/21/2024 1:20 AM EDT [facility] nRBC 0.0 <=0.0 per 100 WBCs LAB HEMATOLOGY METHOD 12/21/2024 1:20 AM EDT [facility] Blood Venous blood specimen / Unknown Venipuncture / Unknown 12/21/2024 1:04 AM EDT 12/21/2024 1:13 AM EDT us Ailyn Cabrera MD LAB BLOOD ORDERABLES Final Re sult [facility] [address] [place] [address] * Anti Xa Level by Unfractionated Heparin - Heparin Drip Titration (12/21/2024 1:04 AM EDT) Anti Xa Level Unfractionated Heparin 0.23 <1.00 IU/mL LAB COAGULATION METHOD 12/21/2024 1:34 AM EDT [facility] Blood Venous blood specimen / Unknown Venipuncture / Unknown 12/21/2024 1:04 AM EDT 12/21/2024 1:13 AM EDT Narrative [facility] - 12/21/2024 1:34 AM EDT Therapeutic Range: UFH Full Dose and ACS/AL protocols*: 0.30 - 0.70 IU/mL UFH Low Dose protocol*: 0.25 - 0.50 IU/mL UFH prophylaxis: Not established us Ailyn Cabrera MD LAB BLOOD ORDERABLES Final Re sult Performing Organization Address City/[facility]/ZIP Co de Phone Number [facility] [address] [place] [address] * (ABNORMAL) POCT glucose meter (12/20/2024 7:55 PM EDT) POCT Glucose 195(H) 74 - 99 mg/dL 12/20/2024 7:57 PM EDT [facility] Comment:Accuracy of [...] to the main labortory for testing. Comment 12/20/2024 7:57 PM EDT [facility] Pediatric Urologist ID SagHany short 12/20/2024 7:57 PM EDT [facility] Device ID [id number] 12/20/2024 7:57 PM EDT [facility] Specimen Type POC Capillary 12/20/2024 7:57 PM EDT [facility] Blood Capillary blood specimen / Unknown 12/20/2024 7:55 PM EDT 12/20/2024 7:57 PM EDT us Yosi Richmond MD LAB POINT OF CARE T EST DOCKED DEVICE UNSOLICITED RESULTS Final Result Performing Organization Address City/[facility] Co de Phone Number [facility] [address] [place] [address] * (ABNORMAL) POCT glucose meter (12/20/2024 5:12 PM EDT) POCT Glucose 234(H) 74 - 99 mg/dL 12/20/2024 5:14 PM EDT [facility] Comment:Accuracy of [...] to the main labortory for testing. Comment 12/20/2024 5:14 PM EDT [facility] Pediatric Urologist ID Daphnie Perez 12/21/19 5:14 PM EDT [facility] Device ID [id number] 12/20/2024 5:14 PM EDT [facility] Specimen Type POC Capillary 12/20/2024 5:14 PM EDT [facility] Blood Capillary blood specimen / Unknown 12/20/2024 5:12 PM EDT 12/20/2024 5:14 PM EDT us Yosi Richmond MD LAB POINT OF CARE T EST DOCKED DEVICE UNSOLICITED RESULTS Final Result Performing Organization Address City/[facility] Co de Phone Number [facility] [address] [place] [address] * (ABNORMAL) POCT glucose meter (12/20/2024 12:47 PM EDT) POCT Glucose 144(H) 74 - 99 mg/dL 12/20/2024 12:48 PM EDT [facility] Comment:Accuracy of a glucos e result obtained from a capillary whole blood specimen relies upon adequate, non-compromised capillary blood flow. If the capillary glucose result is not consistent with the patient's clinical signs and symptoms, glucose testing should be repeated with either an arterial or venous sample on the glucometer or sent to the main labortory for testing. Comment 12/20/2024 12:48 PM EDT [facility] Pediatric Urologist ID Marciano Mai 12/20/2024 12:48 PM EDT [facility] Device ID [id number] 12/20/2024 12:48 PM EDT [facility] Specimen Type POC Capillary 12/20/2024 12:48 PM EDT [facility] Blood Capillary blood specimen / Unknown 12/20/2024 12:47 PM EDT 12/20/2024 12:48 PM EDT us Yosi Richmond MD LAB POINT OF CARE T EST DOCKED DEVICE UNSOLICITED RESULTS Final Result Performing Organization Address City/[facility]/ZIP Co de Phone Number [facility] [address] [place] [address] * (ABNORMAL) POCT glucose meter (12/20/2024 7:46 AM EDT) POCT Glucose 130(H) 74 - 99 mg/dL 12/20/2024 7:47 AM EDT [facility] Comment:Accuracy of a glucos e result obtained from a capillary whole blood specimen relies upon adequate, non-compromised capillary blood flow. If the capillary glucose result is not consistent with the patient's clinical signs and symptoms, glucose testing should be repeated with either an arterial or venous sample on the glucometer or sent to the main labortory for testing. Comment 12/20/2024 7:47 AM EDT [facility] Pediatric Urologist ID Marciano Mai 12/20/2024 7:47 AM EDT [facility] Device ID [id number] 12/20/2024 7:47 AM EDT [facility] Specimen Type POC Capillary 12/20/2024 7:47 AM EDT [facility] Blood Capillary blood specimen / Unknown 12/20/2024 7:46 AM EDT 12/20/2024 7:47 AM EDT us Yosi Richmond MD LAB POINT OF CARE T EST DOCKED DEVICE UNSOLICITED RESULTS Final Result Performing Organization Address City/State/[facility] Co de Phone Number [facility] [address] [place] [address] * Anti Xa Level by Unfractionated Heparin - Heparin Drip Titration (12/20/2024 2:20 AM EDT) Anti Xa Level Unfractionated Heparin 0.29 <1.00 IU/mL LAB COAGULATION METHOD 12/20/2024 2:52 AM EDT [facility] Blood Venous blood specimen / Unknown Venipuncture / Unknown 12/20/2024 2:20 AM EDT 12/20/2024 2:31 AM EDT Narrative [facility] - 12/20/2024 2:52 AM EDT Therapeutic Range: UFH Full Dose and ACS/AL protocols*: 0.30 - 0.70 IU/mL UFH Low Dose protocol*: 0.25 - 0.50 IU/mL UFH prophylaxis: Not established us Ailyn Cabrera MD LAB BLOOD ORDERABLES Final Re sult [facility] [address] [place] [address] * (ABNORMAL) CBC W/O Differential - HIT surveillance (12/20/2024 2:20 AM EDT) WBC Count 5.86 3.70 - 10.30 10*3/uL LAB HEMATOLOGY METHOD 12/20/2024 2:49 AM EDT [facility] RBC Count 2.42(L) 3.90 - 5.20 10*6/uL LAB HEMATOLOGY METHOD 12/20/2024 2:49 AM EDT [facility] HGB 7.3(L) 11.2 - 15.7 g/dL LAB HEMATOLOGY METHOD 12/20/2024 2:49 AM EDT [facility] HCT 23.4(L) 34.0 - 45.0 % LAB HEMATOLOGY METHOD 12/20/2024 2:49 AM EDT [facility] Platelet Count 166 155 - 369 10*3/uL LAB HEMATOLOGY METHOD 12/20/2024 2:49 AM EDT [facility] MCV 97 79 - 98 fL LAB HEMATOLOGY METHOD 12/20/2024 2:49 AM EDT [facility] MCH 30.2 26.0 - 32.0 pg LAB HEMATOLOGY METHOD 12/20/2024 2:49 AM EDT [facility] MCHC 31.2 30.7 - 35.5 g/dL LAB HEMATOLOGY METHOD 12/20/2024 2:49 AM EDT [facility] RDW 19.6(H) 11.5 - 14.5 % LAB HEMATOLOGY METHOD 12/20/2024 2:49 AM EDT [facility] MPV 9.9 8.8 - 12.5 fL LAB HEMATOLOGY METHOD 12/20/2024 2:49 AM EDT [facility] nRBC 0.0 <=0.0 per 100 WBCs LAB HEMATOLOGY METHOD 12/20/2024 2:49 AM EDT [facility] Blood Venous blood specimen / Unknown Venipuncture / Unknown 12/20/2024 2:20 AM EDT 12/20/2024 2:31 AM EDT Result [facility] Ailyn Cabrera MD LAB BLOOD ORDERABLES Final Re sult Performing Organization Address [facility]/ZIP Co de Phone Number [facility] [address] [place] [address] * Phosphorus, Plasma (12/20/2024 2:20 AM EDT) Phosphorus, Plasma 3.3 2.5 - 4.5 mg/dL 12/20/2024 3:00 AM EDT [facility] Blood Venous blood specimen / Unknown Venipuncture / Unknown 12/20/2024 2:20 AM EDT 12/20/2024 2:31 AM EDT Result [facility] Lisa Lloyd DO LAB BLOOD ORDERABLES Final Resu lt Performing Organization Address [facility] Co de Phone Number [facility] [address] [place] [address] * (ABNORMAL) Magnesium, Plasma (12/20/2024 2:20 AM EDT) Magnesium, Plasma 1.6(L) 1.9 - 2.4 mg/dL 12/20/2024 3:00 AM EDT [facility] Blood Venous blood specimen / Unknown Venipuncture / Unknown 12/20/2024 2:20 AM EDT 12/20/2024 2:31 AM EDT Result [facility] Lisa Lenka Lloyd DO LAB BLOOD ORDERABLES Final Resu lt Performing Organization Address [facility]/ZIP Co de Phone Number [facility] [address] [place] [address] * (ABNORMAL) Comprehensive Metabolic Panel, Plasma (12/20/2024 2:20 AM EDT) Glucose, Plasma 120(H) 74 - 99 mg/dL 12/20/2024 3:00 AM EDT [facility] BUN, Plasma 7(L) 8 - 23 mg/dL 12/20/2024 3:00 AM EDT [facility] Creatinine, Plasma 0.90 0.60 - 1.10 mg/dL 12/20/2024 3:00 AM EDT [facility] BUN/Creatinine Ratio 8 12/20/2024 3:00 AM EDT [facility] Sodium, Plasma 145 136 - 145 mmol/L 12/20/2024 3:00 AM EDT [facility] Potassium, Plasma 3.4(L) 3.6 - 4.9 mmol/L 12/20/2024 3:00 AM EDT [facility] Chloride, Plasma 112(H) 97 - 107 mmol/L 12/20/2024 3:00 AM EDT [facility] CO2, Plasma 23 22 - 29 mmol/L 12/20/2024 3:00 AM EDT [facility] Anion Gap 10 6 - 16 mmol/L 12/20/2024 3:00 AM EDT [facility] Total Calcium, Plasma 8.5(L) 8.9 - 10.2 mg/dL 12/20/2024 3:00 AM EDT [facility] Total Protein 6.0(L) 6.3 - 7.9 g/dL 12/20/2024 3:00 AM EDT [facility] Albumin, Plasma 2.7(L) 3.5 - 5.2 g/dL 12/20/2024 3:00 AM EDT [facility] AST, Plasma 17 10 - 35 U/L 12/20/2024 3:00 AM EDT [facility] ALT, Plasma 6(L) 10 - 35 U/L 12/20/2024 3:00 AM EDT [facility] Alkaline Phosphatase, Plasma 67 46 - 142 U/L 12/20/2024 3:00 AM EDT [facility] Total Bilirubin, Plasma 0.3 0.2 - 1.1 mg/dL 12/20/2024 3:00 AM EDT [facility] eGFRcr 71.5 mL/min/1.7 3m*2 12/20/2024 3:00 AM EDT [facility] Comment:Reported eGFRcr in m L/min/1.73m2 is based the CKD-EPI 2020 equation that does not use a race coefficient. Blood Venous blood specimen / Unknown Venipuncture / Unknown 12/20/2024 2:20 AM EDT 12/20/2024 2:31 AM EDT us Lisa Lloyd DO LAB BLOOD ORDERABLES Final Resu lt Performing Organization Address [facility] Co de Phone Number [facility] [address] [place] [address] * Anti Xa Level by Unfractionated Heparin - Heparin Drip Titration (12/19/2024 10:29 PM EDT) Pathologist [facility] [place] Anti Xa Level Unfractionated Heparin 0.39 <1.00 IU/mL LAB COAGULATION METHOD 12/19/2024 11:32 PM EDT [facility] Blood Venous blood specimen / Unknown Venipuncture / Unknown 12/19/2024 10:29 PM EDT 12/19/2024 10:54 PM EDT Narrative [facility] - 12/19/2024 11:32 PM EDT Therapeutic Range: UFH Full Dose and ACS/AL protocols*: 0.30 - 0.70 IU/mL UFH Low Dose protocol*: 0.25 - 0.50 IU/mL UFH prophylaxis: Not established Ailyn Cabrera MD LAB BLOOD ORDERABLES Final Re sult Performing Organization Address [facility] Co de Phone Number [facility] [address] [place] [address] * (ABNORMAL) POCT glucose meter (12/19/2024 8:18 PM EDT) Pathologist [facility] [place] POCT Glucose 180(H) 74 - 99 mg/dL 12/19/2024 8:20 PM EDT [facility] Comment:Accuracy of [...] to the main labortory for testing. Comment 12/19/2024 8:20 PM EDT [facility] Pediatric Urologist ID Sujatha Medrano 12/19/2024 8:20 PM EDT [facility] Device ID [id number] 12/19/2024 8:20 PM EDT [facility] Specimen Type POC Capillary 12/19/2024 8:20 PM EDT [facility] Blood Capillary blood specimen / Unknown 12/19/2024 8:18 PM EDT 12/19/2024 8:20 PM EDT us Lisa Lloyd DO LAB POINT OF CARE TE ST DOCKED DEVICE UNSOLICITED RESULTS Final Result Performing Organization Address City/[facility] Co de Phone Number [facility] [address] [place] [address] * (ABNORMAL) POCT glucose meter (12/19/2024 5:09 PM EDT) [facility] POCT Glucose 118(H) 74 - 99 mg/dL 12/19/2024 5:10 PM EDT [facility] Comment:Accuracy of [...] to the main labortory for testing. Comment 12/19/2024 5:10 PM EDT [facility] Pediatric Urologist ID Marciano Mai 12/19/2024 5:10 PM EDT [facility] Device ID [id number] 12/19/2024 5:10 PM EDT [facility] Specimen Type POC Capillary 12/19/2024 5:10 PM EDT [facility] Blood Capillary blood specimen / Unknown 12/19/2024 5:09 PM EDT 12/19/2024 5:10 PM EDT us Lisa Lloyd LAB POINT OF CARE TE ST DOCKED DEVICE UNSOLICITED RESULTS Final Result Performing Organization Address [facility] de Phone Number [facility] [address] [place] [address] * Anti Xa Level by Unfractionated Heparin - Heparin Drip Titration (12/19/2024 3:33 PM EDT) [facility] Anti Xa Level Unfractionated Heparin <0.11 <1.00 IU/mL LAB COAGULATION METHOD 12/19/2024 4:24 PM EDT [facility] Blood Venous blood specimen / Unknown Venipuncture / Unknown 12/19/2024 3:33 PM EDT 12/19/2024 4:05 PM EDT Narrative [facility] - 12/19/2024 4:24 PM EDT Therapeutic Range: UFH Full Dose and ACS/AL protocols*: 0.30 - 0.70 IU/mL UFH Low Dose protocol*: 0.25 - 0.50 IU/mL UFH prophylaxis: Not established us Ailyn Cabrera MD LAB BLOOD ORDERABLES Final Re sult Performing Organization Address City/[facility] Co de Phone Number [facility] [address] [place] [address] * (ABNORMAL) POCT glucose meter (12/19/2024 11:58 AM EDT) POCT Glucose 129(H) 74 - 99 mg/dL 12/19/2024 11:59 AM EDT [facility] Comment:Accuracy of a glucos e result obtained from a capillary whole blood specimen relies upon adequate, non-compromised capillary blood flow. If the capillary glucose result is not consistent with the patient's clinical signs and symptoms, glucose testing should be repeated with either an arterial or venous sample on the glucometer or sent to the main labortory for testing. Comment 12/19/2024 11:59 AM EDT [facility] Pediatric Urologist ID Marciano Mai 12/19/2024 11:59 AM EDT [facility] Device ID [id number] 12/19/2024 11:59 AM EDT [facility] Specimen Type POC Capillary 12/19/2024 11:59 AM EDT [facility] Blood Capillary blood specimen / Unknown 12/19/2024 11:58 AM EDT 12/19/2024 11:59 AM EDT us Lisa Lloyd DO LAB POINT OF CARE TE ST DOCKED DEVICE UNSOLICITED RESULTS Final Result Performing Organization Address City/[facility]/ZIP Co de Phone Number [facility] [address] [place] [address] * (ABNORMAL) POCT glucose meter (12/19/2024 8:09 AM EDT) POCT Glucose 130(H) 74 - 99 mg/dL 12/19/2024 8:11 AM EDT [facility] Comment:Accuracy of a glucos e result obtained from a capillary whole blood specimen relies upon adequate, non-compromised capillary blood flow. If the capillary glucose result is not consistent with the patient's clinical signs and symptoms, glucose testing should be repeated with either an arterial or venous sample on the glucometer or sent to the main labortory for testing. Comment 12/19/2024 8:11 AM EDT [facility] Pediatric Urologist ID Marciano Mai 12/19/2024 8:11 AM EDT [facility] Device ID [id number] 12/19/2024 8:11 AM EDT [facility] Specimen Type POC Capillary 12/19/2024 8:11 AM EDT [facility] Blood Capillary blood specimen / Unknown 12/19/2024 8:09 AM EDT 12/19/2024 8:11 AM EDT Lisa Lloyd DO LAB POINT OF CARE TE ST DOCKED DEVICE UNSOLICITED RESULTS Final Result Performing Organization Address City/State/[facility] Co de Phone Number [facility] [address] [place] [address] * (ABNORMAL) Anti Xa Level by Unfractionated Heparin - Heparin Drip Titration (12/19/2024 6:19 AM EDT) [facility] Anti Xa Level Unfractionated Heparin >1.10(HH ) <1.00 IU/mL LAB COAGULATION METHOD 12/19/2024 6:48 AM EDT [facility] Blood Venous blood specimen / Unknown Venipuncture / Unknown 12/19/2024 6:19 AM EDT 12/19/2024 6:28 AM EDT Narrative [facility] - 12/19/2024 6:48 AM EDT Therapeutic Range: UFH Full Dose and ACS/AL protocols*: 0.30 - 0.70 IU/mL UFH Low Dose protocol*: 0.25 - 0.50 IU/mL UFH prophylaxis: Not established us Ailyn Cabrera MD LAB BLOOD ORDERABLES Final Re sult [facility] [address] [place] [address] * (ABNORMAL) Magnesium, Plasma (12/19/2024 6:19 AM EDT) Pathologist [facility] [place] Magnesium, Plasma 1.5(L) 1.9 - 2.4 mg/dL 12/19/2024 6:50 AM EDT [facility] Blood Venous blood specimen / Unknown Venipuncture / Unknown 12/19/2024 6:19 AM EDT 12/19/2024 6:28 AM EDT us Lisa Lloyd DO LAB BLOOD ORDERABLES Final Resu lt Performing Organization Address City/[facility]/ZIP Co de Phone Number [facility] [address] [place] [address] * (ABNORMAL) CBC W/O Differential - HIT surveillance (12/19/2024 12:25 AM EDT) Pathologist [facility] [place] WBC Count 8.55 3.70 - 10.30 10*3/uL LAB HEMATOLOGY METHOD 12/19/2024 1:04 AM EDT [facility] RBC Count 2.73(L) 3.90 - 5.20 10*6/uL LAB HEMATOLOGY METHOD 12/19/2024 1:04 AM EDT [facility] HGB 8.0(L) 11.2 - 15.7 g/dL LAB HEMATOLOGY METHOD 12/19/2024 1:04 AM EDT [facility] HCT 25.9(L) 34.0 - 45.0 % LAB HEMATOLOGY METHOD 12/19/2024 1:04 AM EDT [facility] Platelet Count 204 155 - 369 10*3/uL LAB HEMATOLOGY METHOD 12/19/2024 1:04 AM EDT [facility] MCV 95 79 - 98 fL LAB HEMATOLOGY METHOD 12/19/2024 1:04 AM EDT [facility] MCH 29.3 26.0 - 32.0 pg LAB HEMATOLOGY METHOD 12/19/2024 1:04 AM EDT [facility] MCHC 30.9 30.7 - 35.5 g/dL LAB HEMATOLOGY METHOD 12/19/2024 1:04 AM EDT [facility] RDW 19.9(H) 11.5 - 14.5 % LAB HEMATOLOGY METHOD 12/19/2024 1:04 AM EDT [facility] MPV 9.7 8.8 - 12.5 fL LAB HEMATOLOGY METHOD 12/19/2024 1:04 AM EDT [facility] nRBC 0.0 <=0.0 per 100 WBCs LAB HEMATOLOGY METHOD 12/19/2024 1:04 AM EDT [facility] Blood Venous blood specimen / Unknown Venipuncture / Unknown 12/19/2024 12:25 AM EDT 12/19/2024 12:44 AM EDT us Ailyn Cabrera MD LAB BLOOD ORDERABLES Final Re sult Performing Organization Address City/[facility]/ZIP Co de Phone Number [facility] [address] [place] [address] * (ABNORMAL) N-Terminal Probnp (12/19/2024 12:25 AM EDT) N-Terminal, PROBNP, Plasma 2,653(H) 0 - 899 pg/mL 12/19/2024 1:24 AM EDT [facility] Blood Venous blood specimen / Unknown Venipuncture / Unknown 12/19/2024 12:25 AM EDT 12/19/2024 12:45 AM EDT us Lisa Lloyd DO LAB BLOOD ORDERABLES Final Resu lt [facility] [address] [place] [address] * TSH Reflex FT4 (12/19/2024 12:25 AM EDT) Thyroid Stimulating Hormone, Plasma 3.21 0.40 - 4.20 uIU/mL 12/19/2024 1:24 AM EDT [facility] Blood Venous blood specimen / Unknown Venipuncture / Unknown 12/19/2024 12:25 AM EDT 12/19/2024 12:45 AM EDT Lisa Lloyd [employer] LAB BLOOD ORDERABLES Final Resu lt Performing Organization Address [facility]/ZIP Co de Phone Number [facility] [address] [place] [address] * Phosphorus, Plasma (12/19/2024 12:25 AM EDT) Phosphorus, Plasma 3.4 2.5 - 4.5 mg/dL 12/19/2024 1:24 AM EDT [facility] Blood Venous blood specimen / Unknown Venipuncture / Unknown 12/19/2024 12:25 AM EDT 12/19/2024 12:45 AM EDT Lisa Lloyd [employer] LAB BLOOD ORDERABLES Final Resu lt Performing Organization Address [facility]/ZIP Co de Phone Number [facility] [address] [place] [address] * (ABNORMAL) Magnesium, Plasma (12/19/2024 12:25 AM EDT) Magnesium, Plasma 1.7(L) 1.9 - 2.4 mg/dL 12/19/2024 1:24 AM EDT [facility] Blood Venous blood specimen / Unknown Venipuncture / Unknown 12/19/2024 12:25 AM EDT 12/19/2024 12:45 AM EDT Result [facility] Lisa Lloyd [employer] LAB BLOOD ORDERABLES Final Resu lt Performing Organization Address City/[facility]/ZIP Co de Phone Number [facility] [address] [place] [address] * (ABNORMAL) Comprehensive Metabolic Panel, Plasma (12/19/2024 12:25 AM EDT) Glucose, Plasma 152(H) 74 - 99 mg/dL 12/19/2024 1:24 AM EDT [facility] BUN, Plasma 7(L) 8 - 23 mg/dL 12/19/2024 1:24 AM EDT [facility] Creatinine, Plasma 0.96 0.60 - 1.10 mg/dL 12/19/2024 1:24 AM EDT [facility] BUN/Creatinine Ratio 7 12/19/2024 1:24 AM EDT [facility] Sodium, Plasma 143 136 - 145 mmol/L 12/19/2024 1:24 AM EDT [facility] Potassium, Plasma 3.4(L) 3.6 - 4.9 mmol/L 12/19/2024 1:24 AM EDT [facility] Chloride, Plasma 105 97 - 107 mmol/L 12/19/2024 1:24 AM EDT [facility] CO2, Plasma 25 22 - 29 mmol/L 12/19/2024 1:24 AM EDT [facility] Anion Gap 13 6 - 16 mmol/L 12/19/2024 1:24 AM EDT [facility] Total Calcium, Plasma 9.0 8.9 - 10.2 mg/dL 12/19/2024 1:24 AM EDT [facility] Total Protein 6.5 6.3 - 7.9 g/dL 12/19/2024 1:24 AM EDT [facility] Albumin, Plasma 3.2(L) 3.5 - 5.2 g/dL 12/19/2024 1:24 AM EDT [facility] AST, Plasma 16 10 - 35 U/L 12/19/2024 1:24 AM EDT [facility] ALT, Plasma 11 10 - 35 U/L 12/19/2024 1:24 AM EDT [facility] Alkaline Phosphatase, Plasma 76 46 - 142 U/L 12/19/2024 1:24 AM EDT [facility] Total Bilirubin, Plasma 0.4 0.2 - 1.1 mg/dL 12/19/2024 1:24 AM EDT [facility] eGFRcr 66.2 mL/min/1.7 3m*2 12/19/2024 1:24 AM EDT [facility] Comment:Reported eGFRcr in m L/min/1.73m2 is based the CKD-EPI 2020 equation that does not use a race coefficient. Blood Venous blood specimen / Unknown Venipuncture / Unknown 12/19/2024 12:25 AM EDT 12/19/2024 12:45 AM EDT us Lisa Lloyd DO LAB BLOOD ORDERABLES Final Resu lt [facility] [address] [place] [address] * PICC DOUBLE LUMEN (SMARTFORM LINK) (12/18/2024 11:40 PM EDT) Narrative Brian Dai RN - 12/18/2024 11:40 PM EDT Brian Dai RN 12/19/2024 1:05 AM Insert PICC line Performed by: Brian Dai RN Authorized by: Lisa Lloyd DO [place] Protocol: Verbal consent obtained?: Yes Written consent obtained?: Yes Risks and benefits: Risks, benefits and alternatives were discussed Consent given by: Patient Patient states understanding of procedure being performed: Yes Patient's understanding of procedure matches consent: Yes Procedure consent matches procedure scheduled: Yes Relevant documents present and verified: Yes Test results available and properly labeled: Yes Site marked: Yes Imaging studies available: Yes Patient identity confirmed: Verbally with patient, arm band and hospital-assigned identification number Time out: Immediately prior to the procedure a time out was called Indications: Vascular access Local anesthetic: Lidocaine 1% without epinephrine (4 ml) Sedation: Patient sedated: No Preparation: Skin prepped with 2% chlorhexidine and skin prepped with alcohol Skin prep agent dried: Skin prep agent completely dried prior to procedure Sterile barriers: All five maximal sterile barriers used - gloves, gown, cap, mask and large sterile sheet Hand hygiene: Hand hygiene performed prior to catheter insertion Orientation: Left Location (Adult): Basilic vein (Largest vein, [id number] ratio 18%.) Site selection rationale: Infiltration from PIV in RUE. Patient position: Supine Catheter Lot #: [id number] Catheter transfer machine operator: Bard Power PICC Provena Catheter with Solo Valve Catheter placed: Double lumen Catheter size: 4 Fr Catheter trimmed length: 48 Catheter threaded length: 48 Vein placed in: SVC Catheter cm indwellin Catheter cm outside: 0 Placement confirmed by: Mackenzie 3CG technology Pre-procedure: Landmarks identified Ultrasound guidance: Yes Sterile ultrasound techniques: Sterile gel and sterile probe covers were used Number of attempts: 1 Post-procedure: Adhesive securement device and sterile access caps placed on each lumen Dressing applied: CHG tegaderm Assessment: Blood return through all ports Patient tolerated the procedure well with no immediate complications.: Yes PICC kit educational material was given to the patient.: Yes Comments: VAT consult for PICC line. Patient had IV infiltration to RUE earlier in day during blood transfusion. LUE utilized for PICC line. Procedure explained to Patient thoroughly and consent obtained prior to PICC line placement (Consent placed on chart). After sterile drape placed over Patient, Patient's Nurse called into room. Patient's Nurse abided by sterile precautions donning mask and hair bonnet. Patient appeared to have claustrophobia and increased restlessness once drape was placed over Patient. Patient's Nurse able to calm Patient under sterile drape enough to allow finishing sterile PICC procedure. *Would not recommend Patient for any future bedside PICC placements unless given any pre-procedural anxiolytic(s) and/or sedative medications. Images of vein and Sherlock 3CG uploaded to PACS. Able to confirm placement with Sherlock 3CG (Patient in sinus rhythm at time of PICC placement), okay to use order will be placed. Marcy limb precaution armband placed on left wrist for PICC precautions while PICC is in place (No sticks/BP's). Green alcohol caps placed on ends of each lumen hub/heplock. VAT consult completed. Lisa Lloyd DO IV THERAPY ORDERABLES Edited Re sult - Final * (ABNORMAL) POCT glucose meter (12/18/2024 7:27 PM EDT) POCT Glucose 120(H) 74 - 99 mg/dL 12/18/2024 7:29 PM EDT [facility] Comment:Accuracy of a glucos e result obtained from a capillary whole blood specimen relies upon adequate, non-compromised capillary blood flow. If the capillary glucose result is not consistent with the patient's clinical signs and symptoms, glucose testing should be repeated with either an arterial or venous sample on the glucometer or sent to the main labortory for testing. Comment 12/18/2024 7:29 PM EDT [facility] Pediatric Urologist ID Samina Woods 12/18/2024 7:29 PM EDT [facility] Device ID [id number] 12/18/2024 7:29 PM EDT [facility] Specimen Type POC Capillary 12/18/2024 7:29 PM EDT [facility] Blood Capillary blood specimen / Unknown 12/18/2024 7:27 PM EDT 12/18/2024 7:29 PM EDT us Lisa Og Lloyd DO LAB POINT OF CARE TE ST DOCKED DEVICE UNSOLICITED RESULTS Final Result [facility] [address] [place] [address] * XR Chest 1 View (12/18/2024 6:26 PM EDT) Anatomical Region Laterality Modality Chest Digital Radiogra phy Impressions 12/18/2024 6:34 PM EDT Right upper lung airspace disease. Bibasilar atelectasis and/or airspace disease. CRITICAL RESULT: No. COMMUNICATION: Per this written report. Drafted by Liseth Woods MD on 12/18/2024 6:33 PM Final report signed by Liseth Woods MD on 12/18/2024 6:34 PM Narrative 12/18/2024 6:34 PM EDT CLINICAL INDICATION: A. Fib with RVR, lung cancer TECHNIQUE: XR CHEST 1 VIEW COMPARISON: December 15, 2024 FINDINGS: Right upper lung airspace disease. Left greater than right basilar opacities. No pneumothorax. Stable cardiac silhouette. Procedure Note Liseth Woods MD - 12/18/2024 CLINICAL INDICATION: A. Fib with RVR, lung cancer TECHNIQUE: XR CHEST 1 VIEW COMPARISON: December 15, 2024 FINDINGS: Right upper lung airspace disease. Left greater than right basilaropacities. No pneumothorax. Stable cardiac silhouette. IMPRESSION: Right upper lung airspace disease. Bibasilar atelectasis and/or airspace disease. CRITICAL RESULT: No. COMMUNICATION: Per this written report. Drafted by Liseth Woods MD on 12/18/2024 6:33 PM Final report signed by Liseth Woods MD on 12/18/2024 6:34 PM Lisa Og Gabino DO IMG XR PROCEDURES Final Result * ECG Adult (12/18/2024 4:47 PM EDT) Pathologist [facility] [place] EKG DIAGNOSIS CLASS Abnormal MUSE ECG Ventricular Rate 139 BPM MUSE ECG QRSD Interval 86 ms MUSE ECG QT Interval 314 ms MUSE ECG QTC Interval 477 ms MUSE ECG R [place] 7 degrees MUSE ECG T Wave [place] 26 degrees MUSE ECG Diagnosis Atrial fibrillation with rapid ventricular response MUSE ECG Diagnosis Nonspecific ST and T wave abnormality MUSE ECG Diagnosis Borderline QT interval MUSE ECG Diagnosis Abnormal ECG MUSE ECG Diagnosis MUSE ECG Diagnosis Confirmed by Joey Perkins ([id number]) on 12/19/2024 2:57:40 PM MUSE ECG 12/18/2024 4:47 PM EDT 12/19/2024 2:57 PM EDT Lisa Loras DO ECG ORDERABLES Final Result MUSE ECG * (ABNORMAL) POCT glucose meter (12/18/2024 4:39 PM EDT) [facility] POCT Glucose 125(H) 74 - 99 mg/dL 12/18/2024 4:40 PM EDT [facility] Comment:Accuracy of [...] to the main labortory for testing. Comment 12/18/2024 4:40 PM EDT [facility] Pediatric Urologist ID ZaynabMargy nix 12/18/2024 4:40 PM EDT [facility] Device ID [id number] 12/18/2024 4:40 PM EDT [facility] Specimen Type POC Capillary 12/18/2024 4:40 PM EDT [facility] Blood Capillary blood specimen / Unknown 12/18/2024 4:39 PM EDT 12/18/2024 4:40 PM EDT Lisa Lloyd DO LAB POINT OF CARE TE ST DOCKED DEVICE UNSOLICITED RESULTS Final Result [facility] [address] [place] [address] * Transfuse RBC (12/18/2024 3:42 PM EDT) Lisa Lloyd DO BLOOD TRANSFUSION ORDERABLES Fi nal Result * Transfuse RBC: 1 Units (12/18/2024 3:42 PM EDT) Lisa Lloyd DO BLOOD TRANSFUSION ORDERABLES Fi nal Result * PERIPHERAL IV (SMARTFORM LINK) (12/18/2024 2:20 PM EDT) Narrative Rosalind Narvaez RN - 12/18/2024 2:20 PM EDT Rosalind Narvaez RN 12/18/2024 2:22 PM Insert peripheral IV Performed by: Rosalind Narvaez RN Authorized by: Lisa Lloyd DO Hand hygiene: Hand hygiene performed prior to insertion Inserted using aseptic techniques: Yes Preparation: Skin prepped with chg Orientation: Left, upper and medial Location: Arm Catheter placed: Peripheral IV Catheter size: 20g/2.225in. Line Technique: Ultrasound Guidance Number of attempts: 1 IV flushes: Without difficulty and positive blood return noted and IV luer locked Patient tolerance: Patient tolerated the procedure well and there were no complications Patient comfort measures used: Distraction and position of comfort IV site covered with: Transparent semipermeable dressing Education provided to: Patient Lisa Lloyd DO IV THERAPY ORDERABLES Final Res ult * (ABNORMAL) POCT glucose meter (12/18/2024 11:59 AM EDT) POCT Glucose 139(H) 74 - 99 mg/dL 12/18/2024 12:01 PM EDT [facility] Comment:Accuracy of a glucos e result obtained from a capillary whole blood specimen relies upon adequate, non-compromised capillary blood flow. If the capillary glucose result is not consistent with the patient's clinical signs and symptoms, glucose testing should be repeated with either an arterial or venous sample on the glucometer or sent to the main labortory for testing. Comment 12/18/2024 12:01 PM EDT [facility] Pediatric Urologist ID Margy Worthy 12/18/2024 12:01 PM EDT [facility] Device ID [id number] 12/18/2024 12:01 PM EDT [facility] Specimen Type POC Capillary 12/18/2024 12:01 PM EDT [facility] Blood Capillary blood specimen / Unknown 12/18/2024 11:59 AM EDT 12/18/2024 12:01 PM EDT Lisa Lloyd DO LAB POINT OF CARE TE ST DOCKED DEVICE UNSOLICITED RESULTS Final Result Performing Organization Address City/State/[facility] Co de Phone Number [facility] [address] [place] [address] * PERIPHERAL IV (SMARTFORM LINK) (12/18/2024 9:58 AM EDT) Narrative Cynthia Jorge, RN - 12/18/2024 9:58 AM EDT Cynthia Jorge, RN 12/18/2024 9:58 AM Insert peripheral IV Performed by: Cynthia Jorge, RN Authorized by: Lisa Lloyd DO Hand hygiene: Hand hygiene performed prior to insertion Inserted using aseptic techniques: Yes Preparation: Skin prepped with chg Orientation: Right and upper Location: Arm Catheter placed: Peripheral IV Catheter size: 20g/2.00in Line Technique: Ultrasound Guidance Number of attempts: 1 IV flushes: Without difficulty and positive blood return noted and IV luer locked Patient tolerance: There were no complications and patient tolerated the procedure well Patient comfort measures used: Distraction and position of comfort IV site covered with: Transparent semipermeable dressing Education provided to: Patient Comments: All pertinent images were uploaded to PACS. Lisa Lloyd DO IV THERAPY ORDERABLES Final Res ult * Prepare Leukocyte Reduced RBC: 1 Units (12/18/2024 9:09 AM EDT) Product Code [id number] CH BLOO D BANK Dispense Status Transfused BLOOD BANK Blood Expiration Date [id number] BLOOD BANK Unit Number [id number] B LOOD BANK Product Blood Type 5100 BLOOD BANK Blood Type O+ BLOOD BANK Crossmatch Compatible BLOOD BANK Other Lisa Lloyd DO BLOOD BANK PRODUCT ORDERABLES F inal Result Performing Organization Address [facility] Co de Phone Number BLOOD BANK [address] [place] [address], * (ABNORMAL) POCT glucose meter (12/18/2024 7:55 AM EDT) [facility] POCT Glucose 155(H) 74 - 99 mg/dL 12/18/2024 7:57 AM EDT [facility] Comment:Accuracy [...] to the main labortory for testing. Comment 12/18/2024 7:57 AM EDT [facility] Pediatric Urologist ID Margy Worthy 12/18/2024 7:57 AM EDT [facility] Device ID [id number] 12/18/2024 7:57 AM EDT [facility] Specimen Type POC Capillary 12/18/2024 7:57 AM EDT [facility] Blood Capillary blood specimen / Unknown 12/18/2024 7:55 AM EDT 12/18/2024 7:57 AM EDT Lisa Lloyd DO LAB POINT OF CARE TE ST DOCKED DEVICE UNSOLICITED RESULTS Final Result Performing Organization Address City/[facility]/ZIP Co de Phone Number [facility] [address] [place] [address] * (ABNORMAL) CBC W/O Differential - HIT surveillance (12/18/2024 5:16 AM EDT) [facility] WBC Count 7.00 3.70 - 10.30 10*3/uL LAB HEMATOLOGY METHOD 12/18/2024 5:30 AM EDT [facility] RBC Count 2.28(L) 3.90 - 5.20 10*6/uL LAB HEMATOLOGY METHOD 12/18/2024 5:30 AM EDT [facility] HGB 6.9(L) 11.2 - 15.7 g/dL LAB HEMATOLOGY METHOD 12/18/2024 5:30 AM EDT [facility] HCT 22.4(L) 34.0 - 45.0 % LAB HEMATOLOGY METHOD 12/18/2024 5:30 AM EDT [facility] Platelet Count 201 155 - 369 10*3/uL LAB HEMATOLOGY METHOD 12/18/2024 5:30 AM EDT [facility] MCV 98 79 - 98 fL LAB HEMATOLOGY METHOD 12/18/2024 5:30 AM EDT [facility] MCH 30.3 26.0 - 32.0 pg LAB HEMATOLOGY METHOD 12/18/2024 5:30 AM EDT [facility] MCHC 30.8 30.7 - 35.5 g/dL LAB HEMATOLOGY METHOD 12/18/2024 5:30 AM EDT [facility] RDW 18.7(H) 11.5 - 14.5 % LAB HEMATOLOGY METHOD 12/18/2024 5:30 AM EDT [facility] MPV 10.0 8.8 - 12.5 fL LAB HEMATOLOGY METHOD 12/18/2024 5:30 AM EDT [facility] nRBC 0.0 <=0.0 per 100 WBCs LAB HEMATOLOGY METHOD 12/18/2024 5:30 AM EDT [facility] Blood Venous blood specimen / Unknown Venipuncture / Unknown 12/18/2024 5:16 AM EDT 12/18/2024 5:22 AM EDT us Ailyn Cabrera MD LAB BLOOD ORDERABLES Final Re sult [facility] [address] [place] [address] * Magnesium, Plasma (12/18/2024 5:16 AM EDT) Magnesium, Plasma 2.0 1.9 - 2.4 mg/dL 12/18/2024 5:52 AM EDT [facility] Blood Venous blood specimen / Unknown Venipuncture / Unknown 12/18/2024 5:16 AM EDT 12/18/2024 5:23 AM EDT us Lisa Lloyd DO LAB BLOOD ORDERABLES Final Resu lt [facility] [address] [place] [address] * (ABNORMAL) Comprehensive Metabolic Panel, Plasma (12/18/2024 5:16 AM EDT) Glucose, Plasma 130(H) 74 - 99 mg/dL 12/18/2024 5:52 AM EDT [facility] BUN, Plasma 8 8 - 23 mg/dL 12/18/2024 5:52 AM EDT [facility] Creatinine, Plasma 1.05 0.60 - 1.10 mg/dL 12/18/2024 5:52 AM EDT [facility] BUN/Creatinine Ratio 8 12/18/2024 5:52 AM EDT [facility] Sodium, Plasma 146(H) 136 - 145 mmol/L 12/18/2024 5:52 AM EDT [facility] Potassium, Plasma 3.8 3.6 - 4.9 mmol/L 12/18/2024 5:52 AM EDT [facility] Chloride, Plasma 109(H) 97 - 107 mmol/L 12/18/2024 5:52 AM EDT [facility] CO2, Plasma 26 22 - 29 mmol/L 12/18/2024 5:52 AM EDT [facility] Anion Gap 11 6 - 16 mmol/L 12/18/2024 5:52 AM EDT [facility] Total Calcium, Plasma 8.8(L) 8.9 - 10.2 mg/dL 12/18/2024 5:52 AM EDT [facility] Total Protein 6.4 6.3 - 7.9 g/dL 12/18/2024 5:52 AM EDT [facility] Albumin, Plasma 3.0(L) 3.5 - 5.2 g/dL 12/18/2024 5:52 AM EDT [facility] AST, Plasma 23 10 - 35 U/L 12/18/2024 5:52 AM EDT [facility] Comment:Hemolyzed, result ma y be falsely increased. ALT, Plasma 11 10 - 35 U/L 12/18/2024 5:52 AM EDT [facility] Alkaline Phosphatase, Plasma 75 46 - 142 U/L 12/18/2024 5:52 AM EDT [facility] Total Bilirubin, Plasma 0.3 0.2 - 1.1 mg/dL 12/18/2024 5:52 AM EDT [facility] eGFRcr 59.5 mL/min/1.7 3m*2 12/18/2024 5:52 AM EDT [facility] Comment:Reported eGFRcr in m L/min/1.73m2 is based the CKD-EPI 2020 equation that does not use a race coefficient. Blood Venous blood specimen / Unknown Venipuncture / Unknown 12/18/2024 5:16 AM EDT 12/18/2024 5:23 AM EDT us Lisa Lloyd DO LAB BLOOD ORDERABLES Final Resu lt Performing Organization Address City/[facility] Co de Phone Number [facility] [address] [place] [address] * (ABNORMAL) Hemoglobin and Hematocrit, Blood (12/17/2024 9:59 PM EDT) [facility] Signature HGB 6.9(L) 11.2 - 15.7 g/dL LAB HEMATOLOGY METHOD 12/17/2024 9:59 PM EDT [facility] HCT 22.2(L) 34.0 - 45.0 % LAB HEMATOLOGY METHOD 12/17/2024 9:59 PM EDT [facility] Blood Venous blood specimen / Unknown 12/17/2024 9:51 PM EDT us Lisa Lloyd DO LAB BLOOD ORDERABLES Final Resu lt Performing Organization Address City/[facility]/ZIP Co de Phone Number [facility] [address] [place] [address] * PERIPHERAL IV (SMARTFORM LINK) (12/17/2024 9:45 PM EDT) Narrative Roberto Lobato RN - 12/17/2024 9:45 PM EDT Roberto Lobato RN 12/17/2024 9:45 PM Insert peripheral IV Performed by: Roberto Lobato RN Authorized by: Gordy Purvis APRN, DNP Hand hygiene: Hand hygiene performed prior to insertion Inserted using aseptic techniques: Yes Preparation: Skin prepped with chg Orientation: Left and upper Location: Arm Catheter placed: Peripheral IV Catheter size: 20g/1.16in Line Technique: Ultrasound Guidance Number of attempts: 1 IV flushes: Without difficulty and positive blood return noted and IV luer locked Patient tolerance: Patient tolerated the procedure well and there were no complications Patient comfort measures used: Distraction and position of comfort IV site covered with: Transparent semipermeable dressing us Gordy Purvis APRN, DNP IV THERAPY ORDERA BLES Final Result * (ABNORMAL) POCT glucose meter (12/17/2024 9:09 PM EDT) POCT Glucose 114(H) 74 - 99 mg/dL 12/17/2024 9:11 PM EDT [facility] Comment:Accuracy of [...] to the main labortory for testing. Comment 12/17/2024 9:11 PM EDT [facility] Pediatric Urologist ID Herman Gallardo 12/17/2024 9:11 PM EDT [facility] Device ID [id number] 12/17/2024 9:11 PM EDT [facility] Specimen Type POC Capillary 12/17/2024 9:11 PM EDT [facility] Blood Capillary blood specimen / Unknown 12/17/2024 9:09 PM EDT 12/17/2024 9:11 PM EDT us Lisa Lloyd DO LAB POINT OF CARE TE ST DOCKED DEVICE UNSOLICITED RESULTS Final Result [facility] [address] [place] [id number] * (ABNORMAL) CBC W/O Differential - HIT surveillance (12/17/2024 3:22 PM EDT) WBC Count 8.32 3.70 - 10.30 10*3/uL LAB HEMATOLOGY METHOD 12/17/2024 3:49 PM EDT [facility] RBC Count 2.37(L) 3.90 - 5.20 10*6/uL LAB HEMATOLOGY METHOD 12/17/2024 3:49 PM EDT [facility] HGB 7.1(L) 11.2 - 15.7 g/dL LAB HEMATOLOGY METHOD 12/17/2024 3:49 PM EDT [facility] HCT 23.1(L) 34.0 - 45.0 % LAB HEMATOLOGY METHOD 12/17/2024 3:49 PM EDT [facility] Platelet Count 202 155 - 369 10*3/uL LAB HEMATOLOGY METHOD 12/17/2024 3:49 PM EDT [facility] MCV 98 79 - 98 fL LAB HEMATOLOGY METHOD 12/17/2024 3:49 PM EDT [facility] MCH 30.0 26.0 - 32.0 pg LAB HEMATOLOGY METHOD 12/17/2024 3:49 PM EDT [facility] MCHC 30.7 30.7 - 35.5 g/dL LAB HEMATOLOGY METHOD 12/17/2024 3:49 PM EDT [facility] RDW 18.6(H) 11.5 - 14.5 % LAB HEMATOLOGY METHOD 12/17/2024 3:49 PM EDT [facility] MPV 10.1 8.8 - 12.5 fL LAB HEMATOLOGY METHOD 12/17/2024 3:49 PM EDT [facility] nRBC 0.0 <=0.0 per 100 WBCs LAB HEMATOLOGY METHOD 12/17/2024 3:49 PM EDT [facility] Blood Venous blood specimen / Unknown Venipuncture / Unknown 12/17/2024 3:22 PM EDT 12/17/2024 3:40 PM EDT us Ailyn Cabrera MD LAB BLOOD ORDERABLES Final Re sult [facility] [address] [place] [address] * Phosphorus, Plasma (12/17/2024 3:22 PM EDT) Phosphorus, Plasma 3.5 2.5 - 4.5 mg/dL 12/17/2024 4:08 PM EDT [facility] Blood Venous blood specimen / Unknown Venipuncture / Unknown 12/17/2024 3:22 PM EDT 12/17/2024 3:38 PM EDT us Lisa Lloyd DO LAB BLOOD ORDERABLES Final Resu lt [facility] [address] [place] [address] * (ABNORMAL) Comprehensive Metabolic Panel, Plasma (12/17/2024 3:22 PM EDT) Glucose, Plasma 133(H) 74 - 99 mg/dL 12/17/2024 4:08 PM EDT [facility] BUN, Plasma 11 8 - 23 mg/dL 12/17/2024 4:08 PM EDT [facility] Creatinine, Plasma 1.14(H) 0.60 - 1.10 mg/dL 12/17/2024 4:08 PM EDT [facility] BUN/Creatinine Ratio 10 12/17/2024 4:08 PM EDT [facility] Sodium, Plasma 142 136 - 145 mmol/L 12/17/2024 4:08 PM EDT [facility] Potassium, Plasma 3.7 3.6 - 4.9 mmol/L 12/17/2024 4:08 PM EDT [facility] Chloride, Plasma 105 97 - 107 mmol/L 12/17/2024 4:08 PM EDT [facility] CO2, Plasma 27 22 - 29 mmol/L 12/17/2024 4:08 PM EDT [facility] Anion Gap 10 6 - 16 mmol/L 12/17/2024 4:08 PM EDT [facility] Total Calcium, Plasma 8.7(L) 8.9 - 10.2 mg/dL 12/17/2024 4:08 PM EDT [facility] Total Protein 6.5 6.3 - 7.9 g/dL 12/17/2024 4:08 PM EDT [facility] Albumin, Plasma 3.1(L) 3.5 - 5.2 g/dL 12/17/2024 4:08 PM EDT [facility] AST, Plasma 17 10 - 35 U/L 12/17/2024 4:08 PM EDT [facility] ALT, Plasma 10 10 - 35 U/L 12/17/2024 4:08 PM EDT [facility] Alkaline Phosphatase, Plasma 75 46 - 142 U/L 12/17/2024 4:08 PM EDT [facility] Total Bilirubin, Plasma 0.3 0.2 - 1.1 mg/dL 12/17/2024 4:08 PM EDT [facility] eGFRcr 53.9 mL/min/1.7 3m*2 12/17/2024 4:08 PM EDT [facility] Comment:Reported eGFRcr in m L/min/1.73m2 is based the CKD-EPI 2020 equation that does not use a race coefficient. Blood Venous blood specimen / Unknown Venipuncture / Unknown 12/17/2024 3:22 PM EDT 12/17/2024 3:38 PM EDT us Lisa Lloyd DO LAB BLOOD ORDERABLES Final Resu lt [facility] [address] [place] [address] * (ABNORMAL) Magnesium (12/17/2024 3:22 PM EDT) Magnesium, Plasma 1.7(L) 1.9 - 2.4 mg/dL 12/17/2024 4:08 PM EDT [facility] Blood Venous blood specimen / Unknown Venipuncture / Unknown 12/17/2024 3:22 PM EDT 12/17/2024 3:38 PM EDT us Gordy Purvis APRN, DNP LAB BLOOD ORDERAB LES Final Result [facility] [address] [place] [address] * Type and Screen (12/17/2024 3:22 PM EDT) Pathologist [facility] [place] ABO/Rh O Positive 12/17/2024 12:01 AM EDT BLOOD BANK Antibody Screen Negative 12/17/2024 12:01 AM EDT BLOOD BANK Specimen Expiration 12/20/2024 23:59 12/17/2024 12:01 AM EDT BLOOD BANK Blood Venous blood specimen / Unknown Venipuncture / Unknown 12/17/2024 3:22 PM EDT 12/17/2024 3:39 PM EDT Abhilash Bangura MD LAB BLOOD BANK TEST ORDERABLES Final Result Performing Organization Address [facility] de Phone Number BLOOD BANK [address] [place] [address], * Wilbur auris Surveillance by PCR (12/17/2024 4:24 AM EDT) [facility] Wilbur auris PCR Result Not Detected Not Detected 12/19/2024 5:43 AM EDT [facility] Swab (Axilla and Groin) Non-blood Collection / Unknown 12/17/2024 4:24 AM EDT 12/17/2024 5:09 AM EDT Narrative [facility] - 12/19/2024 5:43 AM EDT This PCR assay was developed and its performance characteristics determined by [facility] as appropriate for clinical purposes. This assay has not been cleared or approved by the FDA, but is performed in a CLIA regulated laboratory that is qualified to perform high-complexity testing. Desi Pop MD LAB MICROBIOLOGY - GENERAL ORDER SOLOMON Final Result Performing Organization Address [facility] Co de Phone Number [facility] [address] [place] [address] * (ABNORMAL) POCT glucose meter (12/16/2024 7:29 PM EDT) [facility] POCT Glucose 218(H) 74 - 99 mg/dL 12/16/2024 7:31 PM EDT [facility] Comment:Accuracy of [...] to the main labortory for testing. Comment 12/16/2024 7:31 PM EDT [facility] Pediatric Urologist ID Vale Batista 12/16/2024 7:31 PM EDT [facility] Device ID [id number] 12/16/2024 7:31 PM EDT [facility] Specimen Type POC Capillary 12/16/2024 7:31 PM EDT [facility] Blood Capillary blood specimen / Unknown 12/16/2024 7:29 PM EDT 12/16/2024 7:31 PM EDT Desi Pop MD LAB POINT OF CARE TE ST DOCKED DEVICE UNSOLICITED RESULTS Final Result Performing Organization Address City/State/[facility] Co de Phone Number [facility] [address] [place] [address] * (ABNORMAL) POCT glucose meter (12/16/2024 4:55 PM EDT) [facility] POCT Glucose 193(H) 74 - 99 mg/dL 12/16/2024 4:57 PM EDT [facility] Comment:Accuracy of [...] to the main labortory for testing. Comment 12/16/2024 4:57 PM EDT [facility] Pediatric Urologist ID Kike William 025 4:57 PM EDT [facility] Device ID [id number] 12/16/2024 4:57 PM EDT [facility] Specimen Type POC Capillary 12/16/2024 4:57 PM EDT [facility] Blood Capillary blood specimen / Unknown 12/16/2024 4:55 PM EDT 12/16/2024 4:57 PM EDT us Desi Pop MD LAB POINT OF CARE TE ST DOCKED DEVICE UNSOLICITED RESULTS Final Result Performing Organization Address [facility] Co de Phone Number [facility] [address] [place] [address] * Fungal Culture, Tissue and GARO (12/16/2024 1:59 PM EDT) Culture Reading Mycological 4 Weeks Fungal culture overgrown with bacteria 12/30/2024 6:53 AM EDT [facility] GARO No fungal elements seen 12/30/2024 6:53 AM EDT [facility] Bone Topography unknown / Unknown 12/16/2024 1:59 PM EDT 12/16/2024 3:02 PM EDT Comment:Pre-op diagnosis: Incisional infection [T81.49XA] us Abhilash Bangura MD LAB MICROBIOLOGY - GENERAL ORD ERABLES Final Result Performing Organization Address City/[facility] Co de Phone Number [facility] [address] [place] [address] * (ABNORMAL) Bone Culture and Gram Stain (12/16/2024 1:59 PM EDT) Culture Light Growth 12/21/2024 3:10 PM EDT [facility] Culture Pseudomonas aeruginosa MDR, PRODUCT TECHNICIAN(AA) DONAVAN 12/21/2024 3:10 PM EDT [facility] Comment: This isolate has been identified using the FDA Approved MALDI Micropeltyper CA System The organism value for this result has been updated. These results have been appended to the previously preliminary verified report. Edited result: Previously reported as Pseudomonas aeruginosa on 12/20/2024 at 0807 EDT. This is a corrected result. Previous organism was Pseudomonas aeruginosa MDR, MILITARY SOURCE OPERATIONS SPECIALIST on 12/20/2024 at 1256 EDT. Gram Stain Result Moderate Polymorphonuclear leukocytes 12/21/2024 3:10 PM EDT [facility] Gram Stain Result No organisms seen 12/21/2024 3:10 PM EDT [facility] Bone Topography unknown / Unknown 12/16/2024 1:59 PM EDT 12/16/2024 3:02 PM EDT Comment:Pre-op diagnosis: Incisional infection [T81.49XA] Narrative Organism Antibiotic Method Susceptibility Pseudomonas aeruginosa MDR, PRODUCT TECHNICIAN Aztreonam DONAVAN 8 ug/ml: Susceptible Pseudomonas aeruginosa MDR, PRODUCT TECHNICIAN Cefepime DONAVAN 8 ug/ml: Susceptible Pseudomonas aeruginosa MDR, PRODUCT TECHNICIAN Levofloxacin DONAVAN >4 ug/ml: Resistant Pseudomonas aeruginosa MDR, PRODUCT TECHNICIAN Meropenem DONAVAN >8 ug/ml: Resistant Pseudomonas aeruginosa MDR, PRODUCT TECHNICIAN Tobramycin DONAVAN >8 ug/ml: Resistant Pseudomonas aeruginosa MDR, PRODUCT TECHNICIAN Piperacillin/Tazobactam ETEST 96.0 ug/ml: Resistant Comment:The previously repor samaria component Piperacillin/Tazobactam is no longer being reported. us Abhilash Bangura MD LAB MICROBIOLOGY - GENERAL ORD ERABLES Edited Result - Final Performing Organization Address [facility] de Phone Number [facility] [address] [place] [address] * Anaerobic Culture (12/16/2024 1:59 PM EDT) Culture No anaerobes isolated 12/20/2024 2:47 PM EDT [facility] Bone Topography unknown / Unknown 12/16/2024 1:59 PM EDT 12/16/2024 3:02 PM EDT Comment:Pre-op diagnosis: Incisional infection [T81.49XA] us Abhilash Bangura MD LAB MICROBIOLOGY - GENERAL ORD ERABLES Final Result Performing Organization Address [facility] de Phone Number [facility] [address] [place] [address] * (ABNORMAL) Routine Culture and Gram Stain (12/16/2024 1:58 PM EDT) Culture Light Growth 12/21/2024 3:10 PM EDT [facility] Culture Pseudomonas aeruginosa MDR, PRODUCT TECHNICIAN(AA) DONAVAN 12/21/2024 3:10 PM EDT [facility] Comment: This isolate has been identified using the FDA Approved Bilbus CA System The organism value for this result has been updated. These results have been appended to the previously preliminary verified report. Edited result: Previously reported as Pseudomonas aeruginosa on 12/20/2024 at 0807 EDT. This is a corrected result. Previous organism was Pseudomonas aeruginosa PRODUCT TECHNICIAN on 12/21/2024 at 1131 EDT. Gram Stain Result Moderate Polymorphonuclear leukocytes 12/21/2024 3:10 PM EDT [facility] Gram Stain Result No organisms seen 12/21/2024 3:10 PM EDT [facility] Swab Topography unknown / Unknown 12/16/2024 1:58 PM EDT 12/16/2024 3:01 PM EDT Comment:Pre-op diagnosis: Incisional infection [T81.49XA] Narrative Organism Antibiotic Method Susceptibility Pseudomonas aeruginosa MDR, PRODUCT TECHNICIAN Aztreonam DONAVAN 8 ug/ml: Susceptible Pseudomonas aeruginosa MDR, PRODUCT TECHNICIAN Cefepime DONAVAN 8 ug/ml: Susceptible Pseudomonas aeruginosa MDR, PRODUCT TECHNICIAN Levofloxacin DONAVAN >4 ug/ml: Resistant Pseudomonas aeruginosa MDR, PRODUCT TECHNICIAN Meropenem DONAVAN >8 ug/ml: Resistant Pseudomonas aeruginosa MDR, PRODUCT TECHNICIAN Tobramycin DONAVAN >8 ug/ml: Resistant Pseudomonas aeruginosa MDR, PRODUCT TECHNICIAN Piperacillin/Tazobactam ETEST 96.0 ug/ml: Resistant Comment:The previously repor samaria component Piperacillin/Tazobactam is no longer being reported. Abhilash Bangura MD LAB MICROBIOLOGY - GENERAL ORD ERABLES Edited Result - Final Performing Organization Address [facility] Co de Phone Number [facility] [address] [place] [address] * Fungal Culture, Routine (12/16/2024 1:58 PM EDT) Culture No Fungal Growth at 1 Week 12/23/2024 6:39 AM EDT [facility] Swab Topography unknown / Unknown 12/16/2024 1:58 PM EDT 12/16/2024 3:01 PM EDT Comment:Pre-op diagnosis: Incisional infection [T81.49XA] Abhilash Bangura MD LAB MICROBIOLOGY - GENERAL ORD ERABLES Final Result Performing Organization Address [facility] Co de Phone Number [facility] [address] [place] [address] * Anaerobic Culture (12/16/2024 1:58 PM EDT) Pathologist [facility] Culture No anaerobes isolated 12/20/2024 2:47 PM EDT [facility] Swab Topography unknown / Unknown 12/16/2024 1:58 PM EDT 12/16/2024 3:01 PM EDT Comment:Pre-op diagnosis: Incisional infection [T81.49XA] us Abhilash Bangura MD LAB MICROBIOLOGY - GENERAL ORD ERABLES Final Result [facility] [address] [place] [address] * (ABNORMAL) POCT glucose meter (12/16/2024 12:53 PM EDT) POCT Glucose 152(H) 74 - 99 mg/dL 12/16/2024 12:55 PM EDT [facility] Comment:Accuracy of [...] to the main labortory for testing. Comment 12/16/2024 12:55 PM EDT [facility] Pediatric Urologist ID Christina Pierce 12/17/19 25 12:55 PM EDT [facility] Device ID [id number] 12/16/2024 12:55 PM EDT [facility] Specimen Type POC Venous 12/16/2024 12:55 PM EDT [facility] Blood Venous blood specimen / Unknown 12/16/2024 12:53 PM EDT 12/16/2024 12:55 PM EDT us Desi Pop MD LAB POINT OF CARE TE ST DOCKED DEVICE UNSOLICITED RESULTS Final Result [facility] [address] [place] [address] * (ABNORMAL) Respiratory Culture and Gram Stain (12/16/2024 8:47 AM EDT) Culture Smear contains >=10 squamous epithelial cells per low power field, suggestive of poor quality. Culture not performed. A credit has been issued. 12/16/2024 9:50 AM EDT [facility] Gram Stain Result Greater than 10 Epithelial cells/LPF(A) 12/16/2024 9:50 AM EDT [facility] Gram Stain Result Fewer than 25 WBC/LPF(A) 12/16/2024 9:50 AM EDT [facility] Gram Stain Result Few Gram positive cocci in clusters(A) 12/16/2024 9:50 AM EDT [facility] Gram Stain Result Rare Gram positive cocci in pairs and chains(A) 12/16/2024 9:50 AM EDT [facility] Gram Stain Result Few Gram negative rods(A) 12/16/2024 9:50 AM EDT [facility] Gram Stain Result Rare Budding yeast(A) 12/16/2024 9:50 AM EDT [facility] Sputum Coughed sputum specimen / Unknown Non-blood Collection / Unknown 12/16/2024 8:47 AM EDT 12/16/2024 9:09 AM EDT Gordy Purvis APRN, [facility] LAB MICROBIOLOGY - GENERAL ORDERABLES Final Result [facility] [address] [place] [address] * Histoplasma Galactomannan EIA, Urine (SO) (12/16/2024 8:39 AM EDT) Histoplasma Galactomannan EIA, Urine <0.3 <0.3 ng/mL 12/17/2024 5:07 PM EDT [facility] ([facility]) Comment: This test is used for the measurement of Histoplasma Galactomannan in urine samples. Patients with a value greater than or equal to 0.3 ng/mL are considered to be positive for Histoplasma Galactomannan. Values greater than 25 ng/mL are considered positive and above the limit of quantitation. However, all test results should be reviewed in light of other clinical data by the physician. Specimens should be repeated if the results are positive and inconsistent with clinical findings. Patients with a value less than 0.3 ng/mL are considered to be negative for Histoplasma Galactomannan. A negative result does not rule out the diagnosis of disease as the specimen may be drawn before detectable Galactomannan antigen is present. The clarus Histoplasma Galactomannan EIA was found to be cross-reactive with Paracoccidioides, Blastomyces, and some Wilbur specimens. Positive tests should be confirmed in areas or patient groups where these organisms are endemic or a risk. Even though it was not tested in the clarus Histoplasma Galactomannan EIA, Talaromyces marneffei is known to cross-react with Histoplasma. The clarus Histoplasma Galactomannan EIA is not intended for monitoring therapy. Testing should not be performed as a screening procedure for the general population. The predictive value of a positive or negative result depends on the pretest likelihood of histoplasmosis disease being present. Testing should only be done when clinical evidence suggests the diagnosis of histoplasmosis disease. The clarus Histoplasma Galactomannan EIA is a product of [employer] and is labeled for in-vitro diagnostic use. This test has been registered with the FDA and is considered safe and effective for the detection of Histoplasma Galactomannan. Testing Performed at: [facility] [address] [place] [address], [place] [address] Product Development Director: Anatoly Turk, PhD [facility] ([employer]) CLIA # [id number] FLAG Interpretation: A = Abnormal, H = High, L = Low Urine Urine specimen obtained by clean catch procedure / Unknown Non-blood Collection / Unknown 12/16/2024 8:39 AM EDT 12/16/2024 9:04 AM EDT Narrative [facility] ([facility]) - 12/17/2024 5:07 PM EDT Release to patient in [facility]->Immediate us Gordy Purvis APRN, DNP LAB REF LAB BLOOD AND FLUID ORD Final Result ALLIE FINK) * Streptococcus pneumoniae and Legionella Urinary Antigen (12/16/2024 8:39 AM EDT) [facility] Legionella pneumophila serogroup 1 Antigen Result (Urine) Negative Negative 12/16/2024 10:35 AM EDT [facility] Streptococcus pneumoniae Antigen Result (Urine) Negative Negative 12/16/2024 10:35 AM EDT [facility] Urine Urine specimen obtained by clean catch procedure / Unknown Non-blood Collection / Unknown 12/16/2024 8:39 AM EDT 12/16/2024 9:09 AM EDT us Gordy Purvis APRN, DNP LAB MICROBIOLOGY - GENERAL ORDERABLES Final Result Performing Organization Address City/[facility]/ZIP Co de Phone Number [facility] [address] [place] [address] * (ABNORMAL) POCT glucose meter (12/16/2024 8:28 AM EDT) [facility] POCT Glucose 145(H) 74 - 99 mg/dL 12/16/2024 8:42 AM EDT [facility] Comment:Accuracy of a glucos e result obtained from a capillary whole blood specimen relies upon adequate, non-compromised capillary blood flow. If the capillary glucose result is not consistent with the patient's clinical signs and symptoms, glucose testing should be repeated with either an arterial or venous sample on the glucometer or sent to the main labortory for testing. Comment 12/16/2024 8:42 AM EDT [facility] Pediatric Urologist ID Marie Arroyo 8:42 AM EDT [facility] Device ID [id number] 12/16/2024 8:42 AM EDT [facility] Specimen Type POC Capillary 12/16/2024 8:42 AM EDT [facility] Blood Capillary blood specimen / Unknown 12/16/2024 8:28 AM EDT 12/16/2024 8:42 AM EDT us Desi Pop MD LAB POINT OF CARE TE ST DOCKED DEVICE UNSOLICITED RESULTS Final Result Performing Organization Address City/[facility]/ZIP Co de Phone Number [facility] [address] [place] [address] * APTT (12/16/2024 8:24 AM EDT) aPTT 26 25 - 35 sec 12/16/2024 8:43 AM EDT [facility] Blood Venous blood specimen / Unknown Venipuncture / Unknown 12/16/2024 8:24 AM EDT 12/16/2024 8:28 AM EDT us Abhilash Bangura MD LAB BLOOD ORDERABLES Final Res ult Performing Organization Address City/[facility] Co de Phone Number [facility] [address] [place] [address] * (ABNORMAL) Prothrombin Time/INR (12/16/2024 8:24 AM EDT) Prothrombin Time 15.1(H) 12.0 - 14.3 sec 12/16/2024 8:42 AM EDT [facility] INR 1.2(H) 0.9 - 1.1 12/16/2024 8:42 AM EDT [facility] Blood Venous blood specimen / Unknown Venipuncture / Unknown 12/16/2024 8:24 AM EDT 12/16/2024 8:28 AM EDT Narrative [facility] - 12/16/2024 8:42 AM EDT OPTIMAL INR RANGES FOR PATIENT ON ORAL ANTICOAGULANT THERAPY Prevention of venous thromboembolism INR 2.0 to 3.0 In patients with heart disease: Atrial fibrillation INR 2.0 to 3.0 Valvular heart disease INR 2.0 to 3.0 Tissue heart valves INR 2.0 to 3.0 Mechanical prosthetic valves INR 2.5 to 3.5 Prevention of recurrent AL INR 2.5 to 3.5 us Abhilash Bangura MD LAB BLOOD ORDERABLES Final Res ult Performing Organization Address [facility]/ZIP Co de Phone Number [facility] [address] [place] [id number] * Methicillin Resistant Staphylococcus aureus (MRSA) by PCR (12/16/2024 7:50 AM EDT) Methicillin Resistant Staphylococcus aureus (MRSA) by PCR Not Detected Not Detected 12/16/2024 10:01 AM EDT [facility] Swab Both anterior nares / Unknown Non-blood Collection / Unknown 12/16/2024 7:50 AM EDT 12/16/2024 8:46 AM EDT Narrative [facility] - 12/16/2024 10:01 AM EDT This test is FDA approved for use with nares swab specimens using the eSwabs. This test is used for clinical purposes. It should not be regarded as investigational or for research. This laboratory is certified under the Clinical Laboratory improvement Amendments of 1988 (CLIA-88 as qualified to perform high complexity clinical laboratory testing. Gordylianet Purvis APRN, DNP LAB MICROBIOLOGY - GENERAL ORDERABLES Final Result Performing Organization Address City/[facility]/ZIP Co de Phone Number [facility] [address] [place] [address] * Multi Drug Resistance Test (12/16/2024 7:50 AM EDT) Culture No growth at day 1 12/17/2024 9:52 AM EDT [facility] Swab (Nares and Carole Rectal) Non-blood Collection / Unknown 12/16/2024 7:50 AM EDT 12/16/2024 8:45 AM EDT Narrative [facility] - 12/17/2024 9:52 AM EDT This test was developed and its performance characteristics determined by the [facility]. Although the media is FDA-approved, it is not FDA-approved for all specimen types submitted. The FDA has determined that such clearance or approval is not necessary. This test is used for surveillance purposes. It should not be regarded as investigational or for research. The [facility] is certified under the Clinical Laboratory Improvement Amendments of 1988 (CLIA-88) as qualified to perform high complexity clinical laboratory testing. us Gordy N Stephane RIPENING ROOM OPERATOR, DNP LAB MICROBIOLOGY - GENERAL ORDERABLES Final Result Performing Organization Address City/[facility]/ZIP Co de Phone Number [facility] [address] [place] [address] * (ABNORMAL) Procalcitonin (12/16/2024 5:52 AM EDT) Procalcitonin, Plasma 0.15(H) <0.09 ng/mL 12/16/2024 7:10 AM EDT [facility] Blood Venous blood specimen / Unknown Venipuncture / Unknown 12/16/2024 5:52 AM EDT 12/16/2024 5:55 AM EDT Narrative [facility] - 12/16/2024 7:10 AM EDT Procalcitonin concentrations in healthy individuals [...] predict 28 day mortality risk. Please consult [email or web address]-wmk-[email or web address].[email or web address] for more information. Test performed at [facility]. us Gordy Purvis APRN, DNP LAB BLOOD ORDERAB LES Final Result [facility] [address] [place] [address] * Blood Culture (Aerobic/Anaerobet Set) (12/16/2024 5:52 AM EDT) Culture No growth at day 5 12/21/2024 7:01 AM EDT [facility] Blood Venous blood specimen / Unknown Venipuncture / Unknown 12/16/2024 5:52 AM EDT 12/16/2024 6:14 AM EDT Narrative [facility] - 12/21/2024 7:01 AM EDT Low blood volume submitted, results may be compromised us Amilcar Ibarra MD LAB MICROBIOLOGY - G ENERAL ORDERABLES Final Result Performing Organization Address City/[facility]/ZIP Co de Phone Number [facility] [address] [place] [address] * (ABNORMAL) C-reactive protein (12/16/2024 5:52 AM EDT) CRP, Plasma 54.2(H) <=8.0 mg/L 12/16/2024 6:44 AM EDT [facility] Blood Venous blood specimen / Unknown Venipuncture / Unknown 12/16/2024 5:52 AM EDT 12/16/2024 5:55 AM EDT Narrative [facility] - 12/16/2024 6:44 AM EDT This CRP test is appropriate for assessment of infection, systemic inflammation and/or tissue injury. To assess cardiovascular disease risk order high sensitivity CRP (CRPH). Amilcar Ibarra MD LAB BLOOD ORDERABLES Final Result Performing Organization Address [facility]/ZIP Co de Phone Number [facility] [address] [place] [address] * (ABNORMAL) Sedimentation Rate, Automated (12/16/2024 5:52 AM EDT) [facility] Sedimentation Rate 46(H) <30 mm/hr 2024 6:08 AM EDT [facility] Blood Venous blood specimen / Unknown Venipuncture / Unknown 12/16/2024 5:52 AM EDT 12/16/2024 5:55 AM EDT Amilcar Ibarra MD LAB BLOOD ORDERABLES Final Result [facility] [address] [place] [address] * (ABNORMAL) CBC W/O Differential (12/16/2024 5:52 AM EDT) Pathologist [facility] [place] WBC Count 9.08 3.70 - 10.30 10*3/uL LAB HEMATOLOGY METHOD 12/16/2024 5:57 AM EDT [facility] RBC Count 2.69(L) 3.90 - 5.20 10*6/uL LAB HEMATOLOGY METHOD 12/16/2024 5:57 AM EDT [facility] HGB 8.0(L) 11.2 - 15.7 g/dL LAB HEMATOLOGY METHOD 12/16/2024 5:57 AM EDT [facility] HCT 25.6(L) 34.0 - 45.0 % LAB HEMATOLOGY METHOD 12/16/2024 5:57 AM EDT [facility] Platelet Count 187 155 - 369 10*3/uL LAB HEMATOLOGY METHOD 12/16/2024 5:57 AM EDT [facility] MCV 95 79 - 98 fL LAB HEMATOLOGY METHOD 12/16/2024 5:57 AM EDT [facility] MCH 29.7 26.0 - 32.0 pg LAB HEMATOLOGY METHOD 12/16/2024 5:57 AM EDT [facility] MCHC 31.3 30.7 - 35.5 g/dL LAB HEMATOLOGY METHOD 12/16/2024 5:57 AM EDT [facility] RDW 18.7(H) 11.5 - 14.5 % LAB HEMATOLOGY METHOD 12/16/2024 5:57 AM EDT [facility] MPV 9.4 8.8 - 12.5 fL LAB HEMATOLOGY METHOD 12/16/2024 5:57 AM EDT [facility] nRBC 0.0 <=0.0 per 100 WBCs LAB HEMATOLOGY METHOD 12/16/2024 5:57 AM EDT [facility] Blood Venous blood specimen / Unknown Venipuncture / Unknown 12/16/2024 5:52 AM EDT 12/16/2024 5:55 AM EDT us Abhilash Bangura MD LAB BLOOD ORDERABLES Final Res ult [facility] [address] [place] [address] * (ABNORMAL) Basic Metabolic Panel, Plasma (12/16/2024 5:52 AM EDT) Glucose, Plasma 168(H) 74 - 99 mg/dL 12/16/2024 6:44 AM EDT [facility] BUN, Plasma 18 8 - 23 mg/dL 12/16/2024 6:44 AM EDT [facility] Creatinine, Plasma 1.50(H) 0.60 - 1.10 mg/dL 12/16/2024 6:44 AM EDT [facility] BUN/Creatinine Ratio 12 12/16/2024 6:44 AM EDT [facility] Sodium, Plasma 138 136 - 145 mmol/L 12/16/2024 6:44 AM EDT [facility] Potassium, Plasma 3.8 3.6 - 4.9 mmol/L 12/16/2024 6:44 AM EDT [facility] Chloride, Plasma 100 97 - 107 mmol/L 12/16/2024 6:44 AM EDT [facility] CO2, Plasma 24 22 - 29 mmol/L 12/16/2024 6:44 AM EDT [facility] Anion Gap 14 6 - 16 mmol/L 12/16/2024 6:44 AM EDT [facility] Total Calcium, Plasma 9.0 8.9 - 10.2 mg/dL 12/16/2024 6:44 AM EDT [facility] eGFRcr 38.8 mL/min/1.7 3m*2 12/16/2024 6:44 AM EDT [facility] Comment:Reported eGFRcr in m L/min/1.73m2 is based the CKD-EPI 2020 equation that does not use a race coefficient. Blood Venous blood specimen / Unknown Venipuncture / Unknown 12/16/2024 5:52 AM EDT 12/16/2024 5:55 AM EDT us Abhilash Bangura MD LAB BLOOD ORDERABLES Final Res ult [facility] [address] [place] [address] * (ABNORMAL) Magnesium, Plasma (12/16/2024 5:52 AM EDT) Magnesium, Plasma 1.0(L) 1.9 - 2.4 mg/dL 12/16/2024 6:44 AM EDT [facility] Blood Venous blood specimen / Unknown Venipuncture / Unknown 12/16/2024 5:52 AM EDT 12/16/2024 5:55 AM EDT Abhilash Bangura MD LAB BLOOD ORDERABLES Final Res ult Performing Organization Address City/[facility]/ZIP Co de Phone Number [facility] [address] [place] [address] * Phosphorus, Plasma (12/16/2024 5:52 AM EDT) Phosphorus, Plasma 2.9 2.5 - 4.5 mg/dL 12/16/2024 6:44 AM EDT [facility] Blood Venous blood specimen / Unknown Venipuncture / Unknown 12/16/2024 5:52 AM EDT 12/16/2024 5:55 AM EDT Abhilash Bangura MD LAB BLOOD ORDERABLES Final Res ult Performing Organization Address [facility] de Phone Number [facility] [address] [place] [address] * ECG Adult (12/16/2024 4:31 AM EDT) EKG DIAGNOSIS CLASS Abnormal MUSE ECG Ventricular Rate 150 BPM MUSE ECG QRSD Interval 86 ms MUSE ECG QT Interval 314 ms MUSE ECG QTC Interval 496 ms MUSE ECG R [place] 9 degrees MUSE ECG T Wave [place] 62 degrees MUSE ECG Diagnosis Atrial fibrillation with rapid ventricular response MUSE ECG Diagnosis Nonspecific ST and T wave abnormality MUSE ECG Diagnosis Abnormal ECG MUSE ECG Diagnosis MUSE ECG Diagnosis Confirmed by Cleve Fuller ([id number]) on 12/16/2024 1:22:18 PM MUSE ECG 12/16/2024 4:31 AM EDT 12/16/2024 1:22 PM EDT Gordy Purvis APRN, DNP ECG ORDERABLES F inal Result Performing Organization Address [facility] Co de Phone Number MUSE ECG * (ABNORMAL) Protime-INR (12/16/2024 3:36 AM EDT) Prothrombin Time 15.2(H) 12.0 - 14.3 sec 12/16/2024 4:00 AM EDT [facility] INR 1.2(H) 0.9 - 1.1 12/16/2024 4:00 AM EDT [facility] Blood Venous blood specimen / Unknown Venipuncture / Unknown 12/16/2024 3:36 AM EDT 12/16/2024 3:47 AM EDT Narrative [facility] - 12/16/2024 4:00 AM EDT OPTIMAL INR RANGES FOR PATIENT ON ORAL ANTICOAGULANT THERAPY Prevention of venous thromboembolism INR 2.0 to 3.0 In patients with heart disease: Atrial fibrillation INR 2.0 to 3.0 Valvular heart disease INR 2.0 to 3.0 Tissue heart valves INR 2.0 to 3.0 Mechanical prosthetic valves INR 2.5 to 3.5 Prevention of recurrent AL INR 2.5 to 3.5 Ailyn Cabrera MD LAB BLOOD ORDERABLES Final Re sult Performing Organization Address City/[facility] Co de Phone Number [facility] [address] [place] [address] * Anti Xa Level by Unfractionated Heparin - Baseline (12/16/2024 3:36 AM EDT) Pathologist [facility] [place] Anti Xa Level Unfractionated Heparin <0.11 <1.00 IU/mL 12/16/2024 4:02 AM EDT [facility] Blood Venous blood specimen / Unknown Venipuncture / Unknown 12/16/2024 3:36 AM EDT 12/16/2024 3:47 AM EDT Narrative [facility] - 12/16/2024 4:02 AM EDT Therapeutic Range: UFH Full Dose and ACS/AL protocols*: 0.30 - 0.70 IU/mL UFH Low Dose protocol*: 0.25 - 0.50 IU/mL UFH prophylaxis: Not established Ailyn Cabrera MD LAB BLOOD ORDERABLES Final Re sult Performing Organization Address City/[facility]/ZIP Co de Phone Number [facility] [address] [place] [address] * (ABNORMAL) Troponin T, High Sensitivity, 2 Hour, Plasma (12/16/2024 1:39 AM EDT) Troponin T, High Sensitivity, 2 Hour 28(H) <14 ng/L 12/16/2024 2:08 AM EDT [facility] Troponin Delta 1 <10 ng/L 12/16/2024 2:08 AM EDT [facility] Troponin Delta Interpretation Not Significant 12/16/2024 2:08 AM EDT [facility] Comment:Not Significant. No acute change in troponin observed between the baseline and 2 hour samples. Blood Venous blood specimen / Unknown Venipuncture / Unknown 12/16/2024 1:39 AM EDT 12/16/2024 1:40 AM EDT Balwinder Lock MD LAB BLOOD ORDERABLES Final Resul t [facility] [address] [place] [address] * CT Angio Pulmonary Embolism (12/16/2024 1:30 AM EDT) Anatomical Region Laterality Modality Chest Computed Tomogra phy Impressions 12/16/2024 1:59 AM EDT Bilateral segmental and subsegmental pulmonary emboli with greatest involvement in the right lower lobe. No right heart strain. Increased size of right upper paramediastinal soft tissue lung mass in the region of prior malignancy is highly concerning for disease recurrence. Increased size of right upper paratracheal lymph node raises concern for metastatic involvement. Nodular consolidation within the posterior superior right upper lobe likely relating to postobstructive pneumonia. CRITICAL RESULT: No. COMMUNICATION: Per this written report. Preliminary report signed by Tim Ozuna DO on 12/16/2024 1:52 AM By electronically signing this report, I, the attending physician, attest that I have personally reviewed the images/data for the above examination(s) and agree with the final edited report. Drafted by Tim Ozuna DO on 12/16/2024 1:37 AM Final report signed by Manjit Uriostegui MD on 12/16/2024 1:59 AM Narrative 12/16/2024 1:59 AM EDT CLINICAL INDICATION: Ambulatory hypoxia TECHNIQUE: Imaging of the chest was performed from thoracic inlet through upper abdomen, using spiral technique, following administration of IV contrast, Omnipaque 350, 100 mL per the pulmonary angiogram protocol. In addition, 3D images were created and reviewed. TOTAL DLP (Dose-Length Product): 2321.14 mGy.cm. Please note: The reported value represents the total of one or more individual components during the CT acquisition on this date and at this time, and as such, the same value may appear in more than one CT report depending on the interpreting/reporting physicians. COMPARISON: CT PE 10/25/2024 FINDINGS: Pulmonary Arteries/Vessels: Bilateral segmental and subsegmental pulmonary emboli involving pulmonary arteries feeding both upper and lower lobes, but greatest in the right lower lobe segmental and subsegmental branches. Atherosclerotic calcifications of the normal caliber thoracic aorta. Right Heart Strain: No right heart strain. Baseline cardiomegaly with biventricular enlargement. Pleural/Pericardial space: No pneumothorax. No pleural effusions. No pericardial effusion. Lymph Nodes: Slight increased size of right upper paratracheal node measuring 9 mm, previously 7 mm (). Lungs: Increased size of right upper paramediastinal soft tissue mass measuring 39 x 24 x 23 mm with right posterior upper lobe bronchial obstruction and postobstructive changes/nodular consolidation in the posterior superior right upper lobe ( and ). Mediastinum: Otherwise unremarkable. Chest wall: No acute chest wall findings. Bones: No acute fracture or other aggressive osseous finding within the chest. Upper Abdomen: Partially visualized multicystic right kidney, similar to prior. No acute findings within the upper abdomen. Procedure Note Manjit Uriostegui MD - 12/16/2024 CLINICAL INDICATION: Ambulatory hypoxia TECHNIQUE: Imaging of the chest was performed from thoracic inlet through upperabdomen, using spiral technique, following administration of IV contrast,Omnipaque 350, 100 mL per the pulmonary angiogram protocol. In addition,3D images were created and reviewed. TOTAL DLP (Dose-Length Product): 2321.14 mGy.cm. Please note: The reportedvalue represents the total of one or more individual components during theCT acquisition on this date and at this time, and as such, the same valuemay appear in more than one CT report depending on theinterpreting/reporting physicians. COMPARISON: CT PE 10/25/2024 FINDINGS: Pulmonary Arteries/Vessels: Bilateral segmental and subsegmental pulmonaryemboli involving pulmonary arteries feeding both upper and lower lobes,but greatest in the right lower lobe segmental and subsegmental branches.Atherosclerotic calcifications of the normal caliber thoracic aorta. Right Heart Strain: No right heart strain. Baseline cardiomegaly withbiventricular enlargement. Pleural/Pericardial space: No pneumothorax. No pleural effusions. Nopericardial effusion. Lymph Nodes: Slight increased size of right upper paratracheal nodemeasuring 9 mm, previously 7 mm (). Lungs: Increased size of right upper paramediastinal soft tissue massmeasuring 39 x 24 x 23 mm with right posterior upper lobe bronchialobstruction and postobstructive changes/nodular consolidation in theposterior superior right upper lobe ( and ). Mediastinum: Otherwise unremarkable. Chest wall: No acute chest wall findings. Bones: No acute fracture or other aggressive osseous finding within thechest. Upper Abdomen: Partially visualized multicystic right kidney, similar toprior. No acute findings within the upper abdomen. IMPRESSION: Bilateral segmental and subsegmental pulmonary emboli with greatestinvolvement in the right lower lobe. No right heart strain. Increased size of right upper paramediastinal soft tissue lung mass in theregion of prior malignancy is highly concerning for disease recurrence.Increased size of right upper paratracheal lymph node raises concern formetastatic involvement. Nodular consolidation within the posteriorsuperior right upper lobe likely relating to postobstructive pneumonia. CRITICAL RESULT: No. COMMUNICATION: Per this written report. Preliminary report signed by Tim Ozuna DO on 12/16/2024 1:52 AM By electronically signing this report, I, the attending physician, attestthat I have personally reviewed the images/data for the aboveexamination(s) and agree with the final edited report. 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 CRITICAL RESULT: No. COMMUNICATION: Per this written report. By electronically signing this report, I, the attending physician, attest that I have personally reviewed the images/data for the above examination(s) and agree with the final edited report. Drafted by Kenneth Overton MD on 12/16/2024 1:36 AM Final report signed by Manjit Uriostegui MD on 12/16/2024 2:02 AM Narrative 12/16/2024 2:02 AM EDT CLINICAL INDICATION: Purulence coming from high parietal craniotomy site TECHNIQUE: Routine contiguous axial CT images of the head were obtained with and without without contrast administration. 100 mL of Omnipaque 350 was administered intravenously. Total DLP (Dose-Length Product): 2321.14 mGy.cm. Please note: The reported value represents the total of one or more individual components during the CT acquisition on this date and at this time, and as such, the same value may appear in more than one CT report depending on the interpreting/reporting physicians. COMPARISON: MR head 12/01/2024 CT head 11/29/2024 FINDINGS: Postoperative changes from prior left high parietal craniectomy site. There is enhancement of the dura deep to the craniectomy site with heterogenous extradural fluid causing a 5 mm displacement of the dura along the superior cerebral convexity. Externally, there is moderate soft tissue edema and some cutaneous gas superficial to the craniectomy site. No significant erosive change of the skull. No evidence of acute hemorrhage or ischemia. Normal ventricular size and configuration. Patent basal cisterns. No new, additional site of abnormal parenchymal enhancement. Mild mucosal thickening of the maxillary sinus. Procedure Note Manjit Uriostegui MD - 12/16/2024 CLINICAL INDICATION: Purulence coming from high parietal craniotomy site TECHNIQUE: Routine contiguous axial CT images of the head were obtained with andwithout without contrast administration. 100 mL of Omnipaque 350 wasadministered intravenously. Total DLP (Dose-Length Product): 2321.14 mGy.cm. Please note: The reportedvalue represents the total of one or more individual components during theCT acquisition on this date and at this time, and as such, the same valuemay appear in more than one CT report depending on theinterpreting/reporting physicians. COMPARISON: MR head 12/01/2024 CT head 11/29/2024 FINDINGS: Postoperative changes from prior left high parietal craniectomy site.There is enhancement of the dura deep to the craniectomy site withheterogenous extradural fluid causing a 5 mm displacement of the duraalong the superior cerebral convexity. Externally, there is moderate softtissue edema and some cutaneous gas superficial to the craniectomy site.No significant erosive change of the skull. No evidence of acutehemorrhage or ischemia. Normal ventricular size and configuration. Patentbasal cisterns. No new, additional site of abnormal parenchymalenhancement. Mild mucosal thickening of the maxillary sinus. IMPRESSION: Swelling and enhancement of the superficial soft tissues and adjacent duraassociated with the site of prior extra-axial metastasis resection in theleft superior parietal skull concerning for postoperative infection. CRITICAL RESULT: No. COMMUNICATION: Per this written report. By electronically signing this report, I, the attending physician, [email or web address] I have personally reviewed the images/data for the aboveexamination(s) and agree with the final edited report. Drafted by Kenneth Overton MD on 12/16/2024 1:36 AM Final report signed by Manjit Uriostegui MD on 12/16/2024 2:02 AM us Ailyn Cabrera MD IMG CT PROCEDURES Final Resul t * EKG now - STAT (adult) (12/16/2024 12:47 AM EDT) EKG DIAGNOSIS CLASS Borderline Normal MUSE ECG Ventricular Rate 76 BPM MUSE ECG Atrial Rate 76 BPM MUSE ECG KS Interval 144 ms MUSE ECG QRSD Interval 88 ms MUSE ECG QT Interval 350 ms MUSE ECG QTC Interval 393 ms MUSE ECG P [place] 73 degrees MUSE ECG R [place] 23 degrees MUSE ECG T Wave [place] 66 degrees MUSE ECG Diagnosis Sinus rhythm with premature supraventricular complexes MUSE ECG Diagnosis Otherwise normal ECG MUSE ECG Diagnosis MUSE ECG Diagnosis Confirmed by Corona Donovan ([id number]) on 12/17/2024 10:53:55 PM MUSE ECG 12/16/2024 12:4 7 AM EDT 12/17/2024 10:53 PM EDT Ailyn Cabrera MD ECG ORDERABLES Final Result Performing Organization Address City/[facility]/ZIP Co de Phone Number MUSE ECG * SARS CoV-2/COVID-19 by PCR - Rapid (12/15/2024 11:19 PM EDT) [facility] SARS CoV-2/COVID-1 9 RNA PCR Result Not Detected Not Detected 12/16/2024 1:22 AM EDT [facility] Swab Nasopharyngeal structure / Unknown Non-blood Collection / Unknown 12/15/2024 11:19 PM EDT 12/16/2024 12:39 AM EDT Narrative [facility] - 12/16/2024 1:22 AM EDT This test is FDA approved [...] clinical signs and symptoms consistent with COVID-19. Balwinder Lock MD LAB MICROBIOLOGY - GENERAL ORDER SOLOMON Final Result [facility] [address] [place] [address] * Nasopharyngeal Respiratory Panel (12/15/2024 11:19 PM EDT) Nasopharyngeal Respiratory PCR Interpretation Not Detected for all analytes Not Detected for all analytes 12/16/2024 2:33 AM EDT [facility] Swab Nasopharyngeal structure / Unknown Non-blood Collection / Unknown 12/15/2024 11:19 PM EDT 12/16/2024 12:39 AM EDT Narrative [facility] - 12/16/2024 2:33 AM EDT This assay can detect Adenovirus, [...] Respiratory PCR Panel is performed using the [employer] instrument. This test is FDA approved for use with Nasopharyngeal swabs only. This test is used for clinical purposes. It should not be regarded as investigational or for research. The [facility] Clinical Microbiology Laboratory is certified under the Clinical Laboratory Improvement Amendments of 1988 (CLIA-88) as qualified to perform high complexity clinical laboratory testing. Balwinder Lock MD LAB MICROBIOLOGY - GENERAL ORDER SOLOMON Final Result [facility] [address] [place] [address] * (ABNORMAL) CBC W/O Differential - Baseline (12/15/2024 11:18 PM EDT) Pathologist [facility] [place] WBC Count 9.58 3.70 - 10.30 10*3/uL LAB HEMATOLOGY METHOD 12/16/2024 3:22 AM EDT [facility] RBC Count 2.55(L) 3.90 - 5.20 10*6/uL LAB HEMATOLOGY METHOD 12/16/2024 3:22 AM EDT [facility] HGB 7.5(L) 11.2 - 15.7 g/dL LAB HEMATOLOGY METHOD 12/16/2024 3:22 AM EDT [facility] HCT 24.7(L) 34.0 - 45.0 % LAB HEMATOLOGY METHOD 12/16/2024 3:22 AM EDT [facility] Platelet Count 206 155 - 369 10*3/uL LAB HEMATOLOGY METHOD 12/16/2024 3:22 AM EDT [facility] MCV 97 79 - 98 fL LAB HEMATOLOGY METHOD 12/16/2024 3:22 AM EDT [facility] MCH 29.4 26.0 - 32.0 pg LAB HEMATOLOGY METHOD 12/16/2024 3:22 AM EDT [facility] MCHC 30.4(L) 30.7 - 35.5 g/dL LAB HEMATOLOGY METHOD 12/16/2024 3:22 AM EDT [facility] RDW 18.6(H) 11.5 - 14.5 % LAB HEMATOLOGY METHOD 12/16/2024 3:22 AM EDT [facility] MPV 10.7 8.8 - 12.5 fL LAB HEMATOLOGY METHOD 12/16/2024 3:22 AM EDT [facility] nRBC 0.0 <=0.0 per 100 WBCs LAB HEMATOLOGY METHOD 12/16/2024 3:22 AM EDT [facility] Blood Venous blood specimen / Unknown Venipuncture / Unknown 12/15/2024 11:18 PM EDT 12/15/2024 11:29 PM EDT Ailyn Cabrera MD LAB BLOOD ORDERABLES Final Re sult Performing Organization Address City/State/[facility] Co de Phone Number [facility] [address] [place] [address] * Blood Culture (Aerobic/Anaerobet Set) (12/15/2024 11:18 PM EDT) Culture No growth at day 5 12/21/2024 2:01 AM EDT [facility] Blood Venous blood specimen / Unknown Venipuncture / Unknown 12/15/2024 11:18 PM EDT 12/16/2024 12:59 AM EDT Balwinder Lock MD LAB MICROBIOLOGY - GENERAL ORDER SOLOMON Final Result Performing Organization Address City/[facility]/ZIP Co de Phone Number [facility] [address] [place] [address] * (ABNORMAL) Sed rate, automated (12/15/2024 11:18 PM EDT) Sedimentation Rate 50(H) <30 mm/hr 2024 11:40 PM EDT [facility] Blood Venous blood specimen / Unknown Venipuncture / Unknown 12/15/2024 11:18 PM EDT 12/15/2024 11:29 PM EDT us Balwinder Lock MD LAB BLOOD ORDERABLES Final Resul t Performing Organization Address [facility] Co de Phone Number [facility] [address] [place] [address] * (ABNORMAL) C-reactive protein (12/15/2024 11:18 PM EDT) CRP, Plasma 50.7(H) <=8.0 mg/L 12/15/2024 11:55 PM EDT [facility] Blood Venous blood specimen / Unknown Venipuncture / Unknown 12/15/2024 11:18 PM EDT 12/15/2024 11:23 PM EDT Narrative [facility] - 12/15/2024 11:55 PM EDT This CRP test is appropriate for assessment of infection, systemic inflammation and/or tissue injury. To assess cardiovascular disease risk order high sensitivity CRP (CRPH). us Balwinder Lock MD LAB BLOOD ORDERABLES Final Resul t Performing Organization Address [facility]/ZIP Co de Phone Number [facility] [address] [place] [address] * (ABNORMAL) Blood gas panel, venous (12/15/2024 11:18 PM EDT) pH, Venous 7.39 7.32 - 7.43 LAB HEMATOLOGY METHOD 12/15/2024 11:36 PM EDT [facility] pCO2, Venous 54(H) 37 - 52 mmHg LAB HEMATOLOGY METHOD 12/15/2024 11:36 PM EDT [facility] pO2, Venous 39 25 - 40 mmHg LAB HEMATOLOGY METHOD 12/15/2024 11:36 PM EDT [facility] SO2, Measured, Venous 68 65 - 80 % LAB HEMATOLOGY METHOD 12/15/2024 11:36 PM EDT [facility] Base Excess, Venous 6.5(H) -2.0 - 3.0 mmol/L LAB HEMATOLOGY METHOD 12/15/2024 11:36 PM EDT [facility] Bicarbonate, Calculated, Venous 32(H) 22 - 26 mmol/L LAB HEMATOLOGY METHOD 12/15/2024 11:36 PM EDT [facility] Hematocrit, Whole Blood 23.4(L) 34.0 - 45.0 % LAB HEMATOLOGY METHOD 12/15/2024 11:36 PM EDT [facility] [facility] Sodium, Whole Blood 142 136 - 145 mmol/L LAB HEMATOLOGY METHOD 12/15/2024 11:36 PM EDT [facility] Potassium, Whole Blood 3.8 3.6 - 4.9 mmol/L LAB HEMATOLOGY METHOD 12/15/2024 11:36 PM EDT [facility] Chloride, Whole Blood 100 97 - 107 mmol/L LAB HEMATOLOGY METHOD 12/15/2024 11:36 PM EDT [facility] Glucose, Whole Blood 126(H) 74 - 99 mg/dL LAB HEMATOLOGY METHOD 12/15/2024 11:36 PM EDT [facility] Lactate, Venous, Whole Blood 0.8 0.5 - 2.2 mmol/L LAB HEMATOLOGY METHOD 12/15/2024 11:36 PM EDT [facility] Ionized Calcium, Whole Blood 4.7 4.6 - 5.1 mg/dL LAB HEMATOLOGY METHOD 12/15/2024 11:36 PM EDT [facility] Blood Venous blood specimen / Unknown Venipuncture / Unknown 12/15/2024 11:18 PM EDT 12/15/2024 11:34 PM EDT Balwinder Lock MD LAB BLOOD ORDERABLES Final Resul t [facility] [address] [place] [address] * BNP (12/15/2024 11:18 PM EDT) N-Terminal, PROBNP, Plasma 879 0 - 899 pg/mL 12/15/2024 11:55 PM EDT [facility] Blood Venous blood specimen / Unknown Venipuncture / Unknown 12/15/2024 11:18 PM EDT 12/15/2024 11:23 PM EDT us Balwinder Lock MD LAB BLOOD ORDERABLES Final Resul t Performing Organization Address City/[facility]/ZIP Co de Phone Number [facility] [address] [place] [address] * (ABNORMAL) Troponin now and 120 min (12/15/2024 11:18 PM EDT) Troponin T, High Sensitivity, 0 Hour 29(H) <14 ng/L 12/15/2024 11:55 PM EDT [facility] Blood Venous blood specimen / Unknown Venipuncture / Unknown 12/15/2024 11:18 PM EDT 12/15/2024 11:23 PM EDT us Balwinder Lock MD LAB BLOOD ORDERABLES Final Resul t Performing Organization Address [facility] Co de Phone Number [facility] [address] [place] [address] * (ABNORMAL) Lipase (12/15/2024 11:18 PM EDT) Lipase, Plasma 15(L) 19 - 63 U/L 12/15/2024 11:55 PM EDT [facility] Blood Venous blood specimen / Unknown Venipuncture / Unknown 12/15/2024 11:18 PM EDT 12/15/2024 11:23 PM EDT us Balwinder Lock MD LAB BLOOD ORDERABLES Final Resul t Performing Organization Address City/[facility]/ZIP Co de Phone Number [facility] [address] [place] [address] * (ABNORMAL) CMP (12/15/2024 11:18 PM EDT) Glucose, Plasma 132(H) 74 - 99 mg/dL 12/15/2024 11:55 PM EDT [facility] BUN, Plasma 19 8 - 23 mg/dL 12/15/2024 11:55 PM EDT [facility] Creatinine, Plasma 1.48(H) 0.60 - 1.10 mg/dL 12/15/2024 11:55 PM EDT [facility] BUN/Creatinine Ratio 13 12/15/2024 11:55 PM EDT [facility] Sodium, Plasma 140 136 - 145 mmol/L 12/15/2024 11:55 PM EDT [facility] Potassium, Plasma 3.9 3.6 - 4.9 mmol/L 12/15/2024 11:55 PM EDT [facility] Chloride, Plasma 100 97 - 107 mmol/L 12/15/2024 11:55 PM EDT [facility] CO2, Plasma 28 22 - 29 mmol/L 12/15/2024 11:55 PM EDT [facility] Anion Gap 12 6 - 16 mmol/L 12/15/2024 11:55 PM EDT [facility] Total Calcium, Plasma 9.1 8.9 - 10.2 mg/dL 12/15/2024 11:55 PM EDT [facility] Total Protein 7.1 6.3 - 7.9 g/dL 12/15/2024 11:55 PM EDT [facility] Albumin, Plasma 3.2(L) 3.5 - 5.2 g/dL 12/15/2024 11:55 PM EDT [facility] AST, Plasma 16 10 - 35 U/L 12/15/2024 11:55 PM EDT [facility] ALT, Plasma 8(L) 10 - 35 U/L 12/15/2024 11:55 PM EDT [facility] Alkaline Phosphatase, Plasma 85 46 - 142 U/L 12/15/2024 11:55 PM EDT [facility] Total Bilirubin, Plasma 0.5 0.2 - 1.1 mg/dL 12/15/2024 11:55 PM EDT [facility] eGFRcr 39.4 mL/min/1.7 3m*2 12/15/2024 11:55 PM EDT [facility] Comment:Reported eGFRcr in m L/min/1.73m2 is based the CKD-EPI 2020 equation that does not use a race coefficient. Blood Venous blood specimen / Unknown Venipuncture / Unknown 12/15/2024 11:18 PM EDT 12/15/2024 11:23 PM EDT us Balwinder Lock MD LAB BLOOD ORDERABLES Final Resul t [facility] [address] [place] [address] * XR Chest 1 View (12/15/2024 10:01 PM EDT) Anatomical Region Laterality Modality Chest Digital Radiogra phy Impressions 12/15/2024 10:12 PM EDT Stable appearance of the chest. No change right upper lobe opacity CRITICAL RESULT: No. COMMUNICATION: Per this written report. Drafted by Mathew Mathew MD on 12/15/2024 10:10 PM Final report signed by Mathew Mathew MD on 12/15/2024 10:12 PM Narrative 12/15/2024 10:12 PM EDT CLINICAL INDICATION: Dyspnea TECHNIQUE: XR CHEST 1 VIEW COMPARISON: 12/03/2024 FINDINGS: Stable cardiac mediastinal contour. Overall no change in the airspace opacity in the right upper lobe. Mild left basilar atelectasis. No large pleural effusion, pneumothorax, or acute osseous finding.. Procedure Note Mathew Mathew MD - 12/15/2024 CLINICAL INDICATION: Dyspnea TECHNIQUE: XR CHEST 1 VIEW COMPARISON: 12/03/2024 FINDINGS: Stable cardiac mediastinal contour. Overall no change in the airspaceopacity in the right upper lobe. Mild left basilar atelectasis. No largepleural effusion, pneumothorax, or acute osseous finding.. IMPRESSION: Stable appearance of the chest. No change right upper lobe opacity CRITICAL RESULT: No. COMMUNICATION: Per this written report. Drafted by Mathew Mathew MD on 12/15/2024 10:10 PM Final report signed by Mathew Mathew MD on 12/15/2024 10:12 PM us Balwinder Lock MD IMG XR PROCEDURES Final Result * ECG Adult (12/15/2024 8:23 PM EDT) EKG DIAGNOSIS CLASS Borderline Normal MUSE ECG Ventricular Rate 95 BPM MUSE ECG Atrial Rate 95 BPM MUSE ECG KS Interval 126 ms MUSE ECG QRSD Interval 86 ms MUSE ECG QT Interval 366 ms MUSE ECG QTC Interval 459 ms MUSE ECG P [place] 75 degrees MUSE ECG R [place] 9 degrees MUSE ECG T Wave [place] 67 degrees MUSE ECG Diagnosis Sinus rhythm with premature atrial complexes with aberrant conduction MUSE ECG Diagnosis Otherwise normal ECG MUSE ECG Diagnosis MUSE ECG Diagnosis Confirmed by Corona Donovan ([id number]) on 12/17/2024 10:52:35 PM MUSE ECG 12/15/2024 8:23 PM EDT 12/17/2024 10:52 PM EDT us Ailyn Cabrera MD ECG ORDERABLES Final Result MUSE ECG documented in this encounter Visit Diagnoses Diagnosis Dyspnea- Primary Other dyspnea and respiratory abnormality Incisional infection Multiple subsegmental pulmonary emboli without acute cor pulmonale (CMS/HCC) Atrial fibrillation with RVR (CMS/HCC) History of lung cancer Personal history of malignant neoplasm of bronchus and lung Morbid obesity with BMI of 40.0-44.9, adult (CMS/HCC) Pneumonia Pneumonia, organism unspecified Pulmonary embolism Other pulmonary embolism and infarction Anemia Unspecified anemia COPD (chronic obstructive pulmonary disease) (CMS/HCC) Chronic airway obstruction, not elsewhere classified Diabetes mellitus (CMS/HCC) Type II or unspecified type diabetes mellitus without mention of complication, not stated as uncontrolled Type 2 diabetes mellitus without complications Small cell lung cancer (CMS/HCC) Malignant neoplasm of bronchus and lung, unspecified site Incisional infection documented in this encounter Admitting Diagnoses Diagnosis Dyspnea Other dyspnea and respiratory abnormality Incisional infection documented in this encounter Administered Medications Inactive Administered Medications - up to 3 most recent administrations Medication Order MAR Action Action Date Dose Rate Site acetaminophen (Tylenol) tablet 1,000 mg 1,000 mg, Oral, Once as needed, 1 dose, Starting on Thu12/16/24 at 1407, Until Thu12/16/24 at 1435, Routine, Recovery (Phase I only), pain score of >1 out of 10 Given 12/16/2024 2:35 PM EDT 1,000 mg acetaminophen (Tylenol) tablet 650 mg 650 mg, Oral, Every 6 hours PRN, Starting on 12/17/24 at 0703, Until Corrina 12/22/24 at 1743, Routine, mild pain Given 12/21/2024 9:20 PM EDT 650 mg Given 12/19/2024 10:22 AM EDT 650 mg atorvastatin (Lipitor) tablet 40 mg 40 mg, Oral, Every evening, First dose on Thu12/16/24 at 1700, Until Discontinued, Routine Given 12/21/2024 5:52 PM EDT 40 mg Given 12/20/2024 5:16 PM EDT 40 mg Given 12/19/2024 5:52 PM EDT 40 mg cefepime (Maxipime) 2 g in sodium chloride 0.9% 100 mL IVPB (vial adapter required) 2 g, Intravenous, Every 12 hours, First dose on Thu12/16/24 at 1600, Until Discontinued, Routine New Bag 12/17/2024 4:50 PM EDT 2 g 36. 7 mL/hr New Bag 12/17/2024 4:04 AM EDT 2 g 36.7 mL/hr New Bag 12/16/2024 4:14 PM EDT 2 g 36.7 mL/hr cefepime (Maxipime) 2 g in sodium chloride 0.9% 100 mL IVPB (vial adapter required) 2 g, Intravenous, Every 12 hours, First dose (after last modification) on Thu12/18/24 at 0500, Until Discontinued, Routine New Bag 12/18/2024 5:04 AM EDT 2 g 36.7 mL/h r cefepime (Maxipime) 2 g in sodium chloride 0.9% 100 mL IVPB (vial adapter required) 2 g, Intravenous, Every 8 hours, First dose (after last modification) on Thu12/18/24 at 1400, Until Discontinued, Routine New Bag 12/22/2024 9:18 AM EDT 2 g 36.7 mL/h r New Bag 12/22/2024 1:59 AM EDT 2 g 36.7 mL/hr New Bag 12/21/2024 5:52 PM EDT 2 g 36.7 mL/hr cetirizine (ZyrTEC) tablet 10 mg 10 mg, Oral, Daily, First dose on Thu12/16/24 at 0900, Until Discontinued, Routine Given 12/22/2024 9:17 AM EDT 10 mg Given 12/21/2024 9:41 AM EDT 10 mg Given 12/20/2024 9:55 AM EDT 10 mg dextrose 10 % (D10W) bolus 125 mL 125 mL, Intravenous, Every 15 min PRN, Starting on Thu12/16/24 at 0654, Until Thu12/22/24 at 1743, Administer over 15 Minutes, Routine, low blood sugar BG 51-89 mg/dL dextrose 10 % (D10W) bolus 250 mL 250 mL, Intravenous, Every 15 min PRN, Starting on Thu12/16/24 at 0654, Until Thu12/22/24 at 1743, Administer over 15 Minutes, Routine, PRN low blood sugar BG =/<50 mg/dL dilTIAZem CD (Cardizem CD) 24 hr capsule 120 mg 120 mg, Oral, Nightly, First dose on Thu12/21/24 at 2100, Until Discontinued, Routine Given 12/21/2024 9:21 PM E DT 120 mg diphenhydrAMINE (Benadryl) tablet 25 mg 25 mg, Oral, Every 8 hours PRN, Starting on Thu12/17/24 at 1835, Until Thu12/22/24 at 1743, Routine, itching Given 12/19/2024 2:14 PM EDT 25 mg Given 12/17/2024 6:53 PM EDT 25 mg enoxaparin (Lovenox) syringe 100 mg 100 mg (rounded from 108 mg = 1 mg/kg 108 kg), Subcutaneous, Every 12 hours, First dose on Thu12/21/24 at 1145, Until Discontinued, Routine Given 12/22/2024 9:17 AM EDT 100 mg Left Lower Abdomen Given 12/21/2024 9:20 PM EDT 100 mg Le ft Lower Abdomen Given 12/21/2024 1:00 PM EDT 100 mg Ri ght Lower Abdomen fentaNYL (Sublimaze) injection 25 mcg 25 mcg, Intravenous, Every 5 min PRN, 2 doses, Starting on Thu12/16/24 at 1407, Until Thu12/16/24 at 1834, Routine, Recovery (Phase I only), pain score of 3-4 out of 10 Given 12/16/2024 2:58 PM EDT 25 mcg fentaNYL (Sublimaze) injection 50 mcg 50 mcg, Intravenous, Every 5 min PRN, 2 doses, Starting on Thu12/16/24 at 1407, Until Thu12/16/24 at 1445, Routine, Recovery (Phase I only), pain score of 5-8 out of 10 Given 12/16/2024 2:45 PM EDT 50 mcg Given 12/16/2024 2:35 PM EDT 50 mcg FLUoxetine (PROzac) capsule 40 mg 40 mg, Oral, Daily, First dose on Thu12/16/24 at 1500, Until Discontinued, Routine Given 12/22/2024 9:16 AM EDT 40 mg Given 12/21/2024 9:41 AM EDT 40 mg Given 12/20/2024 9:55 AM EDT 40 mg furosemide (Lasix) tablet 40 mg 40 mg, Oral, Daily, First dose on Thu12/21/24 at 0900, Until Discontinued, Routine Given 12/22/2024 9:17 AM EDT 40 mg Given 12/21/2024 9:41 AM EDT 40 mg gabapentin (Neurontin) capsule 400 mg 400 mg, Oral, 3 times daily, First dose on Thu12/19/24 at 1600, Until Discontinued Given 12/22/2024 9:19 AM EDT 400 m g Given 12/21/2024 9:21 PM EDT 400 mg Given 12/21/2024 5:52 PM EDT 400 mg glucagon (human recombinant) injection 1 mg 1 mg, Intramuscular, Every 15 min PRN, Starting on Thu12/16/24 at 0654, Until Thu12/22/24 at 1743, Routine, low blood sugar per Hypoglycemia Prevention and Treatment protocol glucose (Glutose) 40 % oral gel 15-30 grams of glucose 15-30 grams of glucose, Sublingual, Every 15 min PRN, Starting on Thu12/16/24 at 0654, Until Thu12/22/24 at 1743, Routine, low blood sugar, per Hypoglycemia Prevention and Treatment protocol heparin 25,000 units/250 mL (100 unit/mL) infusion - Adult LOW DOSE Protocol 0-35 Units/kg/hr 110 kg (0-38.5 mL/hr), Intravenous, Titrated, Starting on Thu12/16/24 at 0445, Until Thu12/21/24 at 1053, Routine New Bag 12/21/2024 9:33 AM EDT 11 Units/kg/hr 12.1 mL/hr Rate/Dose Verify 12/21/2024 4:00 AM EDT 12 Units/kg/hr 13. 2 mL/hr New Bag 12/21/2024 1:50 AM EDT 12 Units/kg/hr 13.2 mL/h r hydrOXYzine HCl (Atarax) tablet 25 mg 25 mg, Oral, 3 times daily PRN, Starting on Thu12/19/24 at 1437, Until Thu12/22/24 at 1743, Routine, anxiety Given 12/19/2024 8:56 PM EDT 25 mg insulin glargine-yfgn 100 UNIT/ML injection 5 Units 5 Units, Subcutaneous, Nightly, First dose on Thu12/16/24 at 2100, Until Discontinued, Routine Given 12/21/2024 9:20 PM EDT 5 Units Right Lower Abdomen Given 12/20/2024 8:29 PM EDT 5 Units Le ft Lower Abdomen Given 12/19/2024 9:14 PM EDT 5 Units Le ft Upper Abdomen insulin lispro (Admelog) 100 units/mL injection - Correction - Standard Dose 0-5 Units, Subcutaneous, 3 times daily with meals, First dose on Thu12/19/24 at 1730, Until Discontinued, Routine Given 12/22/2024 12:30 PM EDT 1 Units Left Lower Abdomen Given 12/20/2024 5:14 PM EDT 2 Units Le ft Upper Arm (Back) insulin lispro (Admelog) injection - Correction - Nighttime Dose 0-3 Units, Subcutaneous, 2 times nightly (2100 & 0300), First dose on Thu12/19/24 at 2100, Until Discontinued, Routine iohexol (OMNIPaque) 350 MG/ML injection 100 mL 100 mL, Intravenous, Once in imaging, 1 dose, Starting on Thu12/16/24 at 0119, Until Thu12/16/24 at 0121, Routine, Imaging Protocol Orders Given 12/16/2024 1:21 AM EDT 100 mL ipratropium-albuterol (Duo-Neb) 0.5-2.5 mg/3 mL nebulizer solution 3 mL 3 mL, Nebulization, Every 6 hours PRN, Starting on Thu12/16/24 at 0631, Until Thu12/22/24 at 1743, Routine, shortness of breath, wheezing lactated Ringer's bolus 500 mL 500 mL, Intravenous, Once, 1 dose, On Thu12/16/24 at 0505, Administer over 2 Hours, Routine New Bag 12/16/2024 5:21 AM EDT 500 mL 250 mL/hr lactated Ringer's infusion 20 mL/hr, Intravenous, Once, 1 dose, On Thu12/16/24 at 1500, Routine New Bag 12/16/2024 2:45 PM EDT 20 mL/hr 20 mL/hr levETIRAcetam (Keppra) tablet 1,000 mg 1,000 mg, Oral, 2 times daily, First dose on Thu12/16/24 at 2100, Until Discontinued, Routine Given 12/22/2024 9:16 AM EDT 1,000 mg Given 12/21/2024 9:21 PM EDT 1,000 mg Given 12/21/2024 9:41 AM EDT 1,000 mg magnesium sulfate IVPB 2 g 2 g, Intravenous, Once, 1 dose, On 12/17/24 at 1800, Routine New Bag 12/17/2024 10:45 PM EDT 2 g 25 mL/hr magnesium sulfate IVPB 2 g 2 g, Intravenous, Once, 1 dose, On 12/19/24 at 0915, Routine New Bag 12/19/2024 8:37 AM EDT 2 g 25 mL/hr magnesium sulfate IVPB 4 g 4 g, Intravenous, Every 4 hours, 2 doses, First dose on Thu12/16/24 at 0700, Last dose on Thu12/16/24 at 1100, Routine New Bag 12/16/2024 8:26 AM EDT 4 g 25 mL/hr metoprolol tartrate (Lopressor) injection 5 mg 5 mg, Intravenous, Once, 1 dose, On Thu12/16/24 at 0035, STAT Given 12/16/2024 12:33 AM EDT 5 mg metoprolol tartrate (Lopressor) injection 5 mg 5 mg, Intravenous, Once, 1 dose, On Thu12/16/24 at 0435, STAT Given 12/16/2024 4:47 AM EDT 5 mg metoprolol tartrate (Lopressor) injection 5 mg 5 mg, Intravenous, Every 5 min PRN, 3 doses, Starting on Thu12/18/24 at 1632, Until Thu12/18/24 at 1714, Routine, HR >130 Given 12/18/2024 5:14 PM EDT 5 mg Given 12/18/2024 5:02 PM EDT 5 mg Given 12/18/2024 4:45 PM EDT 5 mg metoprolol tartrate (Lopressor) tablet 25 mg 25 mg, Oral, Once, 1 dose, On Thu12/16/24 at 0455, Routine Given 12/16/2024 5:34 AM EDT 25 mg metoprolol tartrate (Lopressor) tablet 25 mg 25 mg, Oral, 3 times daily, First dose on Thu12/16/24 at 1600, Until Discontinued, Routine Given 12/18/2024 3:54 PM EDT 25 mg Given 12/18/2024 8:09 AM EDT 25 mg Given 12/17/2024 9:30 PM EDT 25 mg metoprolol tartrate (Lopressor) tablet 25 mg 25 mg, Oral, Once, 1 dose, On Thu12/21/24 at 0130, Routine Given 12/21/2024 12:53 AM EDT 25 mg metoprolol tartrate (Lopressor) tablet 50 mg 50 mg, Oral, 3 times daily, First dose (after last modification) on Thu12/18/24 at 1945, Until Discontinued, Routine Given 12/21/2024 9:41 AM EDT 50 mg Given 12/20/2024 8:29 PM EDT 50 mg Given 12/20/2024 5:16 PM EDT 50 mg metoprolol tartrate (Lopressor) tablet 50 mg 50 mg, Oral, 3 times daily, First dose (after last modification) on Thu12/21/24 at 1600, Until Discontinued, Routine Given 12/22/2024 9:17 AM EDT 50 mg Given 12/21/2024 9:21 PM EDT 50 mg Given 12/21/2024 5:52 PM EDT 50 mg metroNIDAZOLE (Flagyl) tablet 500 mg 500 mg, Oral, Every 8 hours, First dose on Thu12/16/24 at 1600, Until Discontinued, Routine Given 12/19/2024 3:26 PM EDT 500 mg Given 12/19/2024 8:37 AM EDT 500 mg Given 12/19/2024 12:12 AM EDT 500 mg mometasone-formoterol (Dulera 200) 200-5 MCG/ACT inhaler 2 puff 2 puff, Inhalation, 2 times daily, First dose on Thu12/16/24 at 0900, Until Discontinued Given 12/22/2024 9:20 AM EDT 2 puffs Given 12/21/2024 9:22 PM EDT 2 puffs Given 12/21/2024 9:39 AM EDT 2 puffs montelukast (Singulair) tablet 10 mg 10 mg, Oral, Nightly, First dose on Thu12/19/24 at 2100, Until Discontinued, Routine Given 12/21/2024 9:21 PM EDT 10 mg Given 12/20/2024 8:30 PM EDT 10 mg Given 12/19/2024 8:56 PM EDT 10 mg mupirocin (Bactroban) 2 % ointment 1 Application Each Nostril, 2 times daily, 10 doses, First dose on Thu12/19/24 at 0100, Last dose on Thu12/23/24 at 0900, Routine Given 12/22/2024 9:19 AM EDT 1 Applic ation Given 12/21/2024 9:22 PM EDT 1 Application Given 12/21/2024 9:41 AM EDT 1 Application oxyCODONE (Roxicodone) immediate release tablet 10 mg 10 mg, Oral, Once as needed, 2 doses, Starting on Thu12/16/24 at 1407, Until Thu12/16/24 at 1615, Routine, Recovery (Phase I only), pain score of 6-8 out of 10 Given 12/16/2024 4:15 PM EDT 10 mg Given 12/16/2024 2:36 PM EDT 10 mg oxyCODONE (Roxicodone) immediate release tablet 10 mg 10 mg, Oral, Every 4 hours PRN, Starting on 12/17/24 at 1153, Until Corrina 12/22/24 at 1743, Routine, severe pain Given 12/21/2024 10:59 AM EDT 10 mg Given 12/19/2024 10:22 AM EDT 10 mg Given 12/19/2024 6:25 AM EDT 10 mg oxyCODONE (Roxicodone) immediate release tablet 5 mg 5 mg, Oral, Every 6 hours PRN, Starting on 12/17/24 at 0703, Until 12/17/24 at 1153, Routine, moderate pain Given 12/17/2024 8:09 AM EDT 5 mg oxyCODONE (Roxicodone) immediate release tablet 5 mg 5 mg, Oral, Every 4 hours PRN, Starting on 12/17/24 at 1153, Until Corrina 12/22/24 at 1743, Routine, moderate pain Given 12/18/2024 8:47 PM EDT 5 mg Given 12/18/2024 5:35 AM EDT 5 mg pantoprazole (Protonix) EC tablet 40 mg 40 mg, Oral, Daily, First dose on Thu12/16/24 at 0900, Until Discontinued, Routine Given 12/22/2024 9:16 AM EDT 40 mg Given 12/21/2024 9:41 AM EDT 40 mg Given 12/20/2024 9:55 AM EDT 40 mg piperacillin-tazobactam (Zosyn) 4.5 g in sodium chloride 0.9% 100 mL IVPB (vial adapter required) 4.5 g, Intravenous, Every 6 hours, First dose on Thu12/16/24 at 0645, Until Discontinued, Routine New Bag 12/16/2024 8:25 AM EDT 4.5 g 36.7 mL/hr potassium chloride CR (Klor-Con) ER tablet 40 mEq 40 mEq, Oral, Once, 1 dose, On Thu12/19/24 at 0915, Routine Given 12/19/2024 8:36 AM EDT 40 mEq potassium chloride CR (Klor-Con) ER tablet 40 mEq 40 mEq, Oral, Once, 1 dose, On Tu12/20/24 at 0830, Routine Given 12/20/2024 9:55 AM EDT 40 mEq potassium chloride CR (Klor-Con) ER tablet 40 mEq 40 mEq, Oral, Once, 1 dose, On Corrina 12/22/24 at 0830, Routine Given 12/22/2024 9:16 AM EDT 40 mEq Povidone-Iodine 5 % swab solution 1 Application Nasal, Once, 1 dose, On Thu12/16/24 at 1220, Routine Given 12/16/2024 1:28 PM EDT 1 Application sodium chloride 0.9 % bolus 500 mL 500 mL, Intravenous, Once, 1 dose, On Thu12/18/24 at 1845, Administer over 30 Minutes, Routine New Bag 12/19/2024 12:27 AM EDT 500 mL 1000 mL/hr sodium chloride 0.9 % flush 10 mL 10 mL, Intravenous, Every 12 hours, First dose on Thu12/16/24 at 0455, Until Discontinued, Routine Given 12/20/2024 2:20 AM EDT 10 mL Given 12/19/2024 4:13 PM EDT 10 mL Given 12/19/2024 2:07 AM EDT 10 mL sodium chloride 0.9 % flush 10 mL 10 mL, Intravenous, Every 12 hours, First dose on Thu12/16/24 at 1220, Until Discontinued, Routine, Holding - Preprocedure Given 12/16/2024 2:48 PM EDT 10 mL sodium chloride 0.9 % flush 10 mL 10 mL, Intravenous, Every 12 hours, First dose on Thu12/19/24 at 0100, Until Discontinued, Routine Given 12/22/2024 1:59 AM EDT 10 mL Given 12/21/2024 12:33 PM EDT 10 mL Given 12/21/2024 1:06 AM EDT 10 mL sodium chloride 0.9 % flush 10 mL 10 mL, Intravenous, Every 1 hour PRN, Starting on Thu12/19/24 at 0005, Until [facility] 12/22/24 at 1743, Routine, Flush Before and After EVERY dose of medication. sodium chloride 0.9 % flush 10 mL 10 mL, Intravenous, Every 12 hours, First dose (after last modification) on Thu12/20/24 at 2100, Until Discontinued, Routine Given 12/22/2024 9:19 AM EDT 10 mL Given 12/21/2024 9:22 PM EDT 10 mL Given 12/21/2024 9:42 AM EDT 10 mL sodium chloride 0.9 % flush 10 mL 10 mL, Intravenous, As needed, Starting on Thu12/20/24 at 1520, Until [facility] 12/22/24 at 1743, Routine, line care sodium chloride 0.9 % flush 20 mL 20 mL, Intravenous, Every 1 hour PRN, Starting on 12/19/24 at 0005, Until Corrina 12/22/24 at 1743, Routine, After blood draws and if any blood seen in tubing. Tiotropium Norman Monohydrate (Spiriva Respimat) 2.5 MCG/ACT inhaler 2 puff 2 puff, Inhalation, Daily, First dose on Thu12/16/24 at 0900, Until Discontinued Given 12/22/2024 9:20 AM EDT 2 pu ffs Given 12/21/2024 9:41 AM EDT 2 puffs Given 12/20/2024 9:56 AM EDT 2 puffs vancomycin (Vancocin) 2,500 mg in sodium chloride 0.9 % 500 mL IVPB 2,500 mg, Intravenous, Once, 1 dose, On 12/17/24 at 1530, at 228 mL/hr, STAT Given 12/17/2024 4:49 PM EDT 2,500 mg 228 mL/hr vancomycin in NS (Vancocin) IVPB 1,500 mg 1,500 mg, Intravenous, Every 24 hours, First dose on Thu12/18/24 at 1600, Until Discontinued, at 166.7 mL/hr, Routine New Bag 12/19/2024 12:26 AM EDT 1,500 mg 166.7 mL/hr documented in this encounter Active and Recently Administered Medications Times are shown in EDT. Scheduled Medication Order 12/20/2024 12/21/2024 12/22/2024 atorvastatin (Lipitor) tablet 40 mg 40 mg, Oral, Every evening, First dose on Thu12/16/24 at 1700, Until Discontinued, Routine 1716 (Given - Provider: Daphnie Perez RN - Comment: cluster) 1752 (Given - Provider: Emily Vera RN) 1700 (Canceled Entry - Provider: Automatic Discharge Provider - Comment: Automatically canceled at discontinue of medication order) cefepime (Maxipime) 2 g in sodium chloride 0.9% 100 mL IVPB (vial adapter required) 2 g, Intravenous, Every 8 hours, First dose (after last modification) on Thu12/18/24 at 1400, Until Discontinued, Routine 0205 (New Bag - Provider: Rufus Florez RN)0956 (New Bag - Provider: Daphnie Perez RN)1716 (New Bag - Provider: Daphnie Perez RN) 0105 (New Bag - Provider: Rufus Florez RN)0941 (New Bag - Provider: Emily Vera RN)1752 (New Bag - Provider: Emily Vera RN) 0159 (New Bag - Provider: Rufus Florez RN)0918 (New Bag - Provider: Quentin Montoya RN) cetirizine (ZyrTEC) tablet 10 mg 10 mg, Oral, Daily, First dose on Thu12/16/24 at 0900, Until Discontinued, Routine 0955 (Given - Provider: Daphnie Perez RN) 0941 (Given - Provider: Emily Vera RN) 0917 (Given - Provider: Quentin Montoya RN) dilTIAZem CD (Cardizem CD) 24 hr capsule 120 mg 120 mg, Oral, Nightly, First dose on Thu12/21/24 at 2100, Until Discontinued, Routine 2120 (Given - Provider: Rufus Florez RN) enoxaparin (Lovenox) syringe 100 mg 100 mg (rounded from 108 mg = 1 mg/kg 108 kg), Subcutaneous, Every 12 hours, First dose on Thu12/21/24 at 1145, Until Discontinued, Routine 1300 (Given - Provider: Emily Vera RN)2120 (Given - Provider: Rufus Florez RN) 0917 (Given - Provider: Quentin Montoya RN) FLUoxetine (PROzac) capsule 40 mg 40 mg, Oral, Daily, First dose on Thu12/16/24 at 1500, Until Discontinued, Routine 0955 (Given - Provider: Daphnie Perez RN) 0941 (Given - Provider: Emily Vera RN) 0916 (Given - Provider: Quentin Montoya RN) furosemide (Lasix) tablet 40 mg 40 mg, Oral, Daily, First dose on Thu12/21/24 at 0900, Until Discontinued, Routine 0941 (Given - Provider: Emily Vera RN) 0917 (Given - Provider: Quentin Montoya RN) gabapentin (Neurontin) capsule 400 mg 400 mg, Oral, 3 times daily, First dose on Thu12/19/24 at 1600, Until Discontinued 0955 (Given - Provider: Daphnie Perez RN)171 (Given - Provider: Daphnie Perez RN - Comment: cluster)2028 (Given - Provider: Rufus Florez RN) 0941 (Given - Provider: Emily Vera RN)175 (Given - Provider: Emily Vera RN - Comment: CL[facility])2120 (Given - Provider: Rufus Florez RN) 0919 (Given - Provider: Quentin Montoya RN)1600 (Canceled Entry - Provider: Automatic Discharge Provider - Comment: Automatically canceled at discontinue of medication order) insulin glargine-yfgn 100 UNIT/ML injection 5 Units 5 Units, Subcutaneous, Nightly, First dose on Thu12/16/24 at 2100, Until Discontinued, Routine 2028 (Given - Provider: Rufus Florez RN) 2119 (Given - Provider: Rufus Florez RN) insulin lispro (Admelog) 100 units/mL injection - Correction - Standard Dose 0-5 Units, Subcutaneous, 3 times daily with meals, First dose on Thu12/19/24 at 1730, Until Discontinued, Routine 0813 (Not Given - Provider: Daphnie Perez RN - Reason: Order parameters not met)1253 (Not Given - Provider: Daphnie Perez RN - Reason: Order parameters not met)171 (Given - Provider: Daphnie Perez RN - Comment: cluster) 0836 (Not Given - Provider: Emily Vera RN - Reason: Order parameters not met)1231 (Not Given - Provider: Emily Vera RN - Reason: Hold for condition: must add comment - Comment: patient refused lunch tray. nursing decision hold one unit of insulin)1755 (Not Given - Provider: Emily Vera RN - Reason: Order parameters not met) 0830 (Not Given - Provider: Quentin Montoya RN - Reason: Order parameters not met)1230 (Given - Provider: Quentin Montoya RN)1730 (Canceled Entry - Provider: Automatic Discharge Provider - Comment: Automatically canceled at discontinue of medication order) insulin lispro (Admelog) injection - Correction - Nighttime Dose 0-3 Units, Subcutaneous, 2 times nightly (2099 & 299), First dose on Thu12/19/24 at 2100, Until Discontinued, Routine 022 (Not Given - Provider: Rufus Florez RN - Reason: Order parameters not met)2023 (Not Given - Provider: Rufus Florez RN - Reason: Order parameters not met) 104 (Not Given - Provider: Rufus Florez RN - Reason: Order parameters not met)2117 (Not Given - Provider: Rufus Florez RN - Reason: Order parameters not met) 201 (Not Given - Provider: Rufus Florez RN - Reason: Order parameters not met) levETIRAcetam (Keppra) tablet 1,000 mg 1,000 mg, Oral, 2 times daily, First dose on Thu12/16/24 at 2100, Until Discontinued, Routine 09 (Given - Provider: Daphnie Perez RN)2028 (Given - Provider: Rufus Florez RN) 0941 (Given - Provider: Emily Vera RN)2120 (Given - Provider: Rufus Florez RN) 0916 (Given - Provider: Quentin Montoya RN) metoprolol tartrate (Lopressor) tablet 25 mg (COMPLETED) 25 mg, Oral, Once, 1 dose, On Thu12/21/24 at 0130, Routine 0053 (Given - Provider: Rufus Florez RN) metoprolol tartrate (Lopressor) tablet 50 mg (CANCELED) 50 mg, Oral, 3 times daily, First dose (after last modification) on Thu12/18/24 at 1945, Until Discontinued, Routine 0955 (Given - Provider: Daphnie Perez RN)1715 (Given - Provider: Daphnie Perez RN - Comment: cluster)2028 (Given - Provider: Rufus Florez RN) 0941 (Given - Provider: Emily Vera RN) metoprolol tartrate (Lopressor) tablet 50 mg 50 mg, Oral, 3 times daily, First dose (after last modification) on Thu12/21/24 at 1600, Until Discontinued, Routine 1752 (Given - Provider: Emily Vera RN - Comment: [facility] care)2120 (Given - Provider: Rufus Florez RN) 0917 (Given - Provider: Quentin Montoya RN)1600 (Canceled Entry - Provider: Automatic Discharge Provider - Comment: Automatically canceled at discontinue of medication order) mometasone-formoterol (Dulera 200) 200-5 MCG/ACT inhaler 2 puff(Linked Group 1) 2 puff, Inhalation, 2 times daily, First dose on Thu12/16/24 at 0900, Until Discontinued 0956 (Given - Provider: Daphnie Perez RN)2031 (Given - Provider: Rufus Florez RN) 09 (Given - Provider: Emily Vera RN)2121 (Given - Provider: Rufus Florez RN) 09 (Given - Provider: Quentin Montoya RN) montelukast (Singulair) tablet 10 mg 10 mg, Oral, Nightly, First dose on Thu12/19/24 at 2100, Until Discontinued, Routine 2030 (Given - Provider: Rufus Florez RN) 2120 (Given - Provider: Rufus Florez RN) mupirocin (Bactroban) 2 % ointment 1 Application (CANCELED) Each Nostril, 2 times daily, 10 doses, First dose on Thu12/19/24 at 0100, Last dose on Thu12/23/24 at 0900, Routine 0955 (Given - Provider: Daphnie Perez RN)2028 (Given - Provider: Rufus Florez RN) 0941 (Given - Provider: Emily Vera RN)2121 (Given - Provider: Rufus Florez RN) 0919 (Given - Provider: Quentin Montoya RN) pantoprazole (Protonix) EC tablet 40 mg 40 mg, Oral, Daily, First dose on Thu12/16/24 at 0900, Until Discontinued, Routine 0955 (Given - Provider: Daphnie Perez RN) 0941 (Given - Provider: Emily Vera RN) 0916 (Given - Provider: Quentin Montoya RN) potassium chloride CR (Klor-Con) ER tablet 40 mEq (COMPLETED) 40 mEq, Oral, Once, 1 dose, On Thu12/20/24 at 0830, Routine 0955 (Given - Provider: Daphnie Perez RN - Comment: cluster) potassium chloride CR (Klor-Con) ER tablet 40 mEq (COMPLETED) 40 mEq, Oral, Once, 1 dose, On Thu12/22/24 at 0830, Routine 0916 (Given - Provid er: Quentin Montoya RN) sodium chloride 0.9 % flush 10 mL (CANCELED) 10 mL, Intravenous, Every 12 hours, First dose on Thu12/16/24 at 0455, Until Discontinued, Routine 0220 (Given - Provider: Rufus Florez RN - Comment: care clustering) sodium chloride 0.9 % flush 10 mL 10 mL, Intravenous, Every 12 hours, First dose on Thu12/19/24 at 0100, Until Discontinued, Routine 0220 (Given - Provider: Rufus Florez RN)1209 (Given - Provider: Daphnie Perez RN) 0106 (Given - Provider: Rufus Florez RN)1233 (Given - Provider: Emily Vera RN) 0159 (Given - Provider: Rufus Florez RN)1300 (Canceled Entry - Provider: Automatic Discharge Provider - Comment: Automatically canceled at discontinue of medication order) sodium chloride 0.9 % flush 10 mL(Linked Group 2) 10 mL, Intravenous, Every 12 hours, First dose (after last modification) on Thu12/20/24 at 2100, Until Discontinued, Routine 2031 (Not Given - Provider: Rufus Florez RN - Reason: Order changed) 0942 (Given - Provider: Emily Vera RN)2122 (Given - Provider: Rufus Florez RN) 0919 (Given - Provider: Quentin Montoya RN) Tiotropium Norman Monohydrate (Spiriva Respimat) 2.5 MCG/ACT inhaler 2 puff(Linked Group 1) 2 puff, Inhalation, Daily, First dose on Thu12/16/24 at 0900, Until Discontinued 0956 (Given - Provider: Daphnie Perez, JOSE MARTIN) 0941 (Given - Provider: Emily Vera, RN) 0920 (Given - Provider: Quentin Montoya RN) Continuous Medication Order 12/20/2024 12/21/2024 12/22/2024 heparin 25,000 units/250 mL (100 unit/mL) infusion - Adult LOW DOSE Protocol (CANCELED) 0-35 Units/kg/hr 110 kg (0-38.5 mL/hr), Intravenous, Titrated, Starting on Thu12/16/24 at 0445, Until 12/21/24 at 1053, Routine 0015 (Rate/Dose Verify - Provider: Rufus Florez RN)0220 (Rate/Dose Verify - Provider: Rufus Florez RN)0657 (Handoff - Provider: Rufus Florez RN)1904 (Handoff - Provider: Daphnie Perez, JOSE MARTIN)1917 (New Bag - Provider: Rufus Florez RN)2015 (Rate/Dose Verify - Provider: Rufus Florez RN) 0150 (New Bag - Provider: Rufus Florez RN)0400 (Rate/Dose Verify - Provider: Rufus Florez RN)0719 (Handoff - Provider: Rufus Florez RN)0933 (New Bag - Provider: Emily Vera, JOSE MARTIN)1144 (Stopped - Provider: Emily Vera, JOSE MARTIN) PRN Medication Order 12/20/2024 12/21/2024 12/22/2024 acetaminophen (Tylenol) tablet 650 mg 650 mg, Oral, Every 6 hours PRN, Starting on 12/17/24 at 0703, Until Corrina 12/22/24 at 1743, Routine, mild pain 2120 (Given - Provider: Rufus Florez RN) dextrose 10 % (D10W) bolus 125 mL(Linked Group 3) 125 mL, Intravenous, Every 15 min PRN, Starting on Thu12/16/24 at 0654, Until Corrina 12/22/24 at 1743, Administer over 15 Minutes, Routine, low blood sugar BG 51-89 mg/dL dextrose 10 % (D10W) bolus 250 mL(Linked Group 3) 250 mL, Intravenous, Every 15 min PRN, Starting on Thu12/16/24 at 0654, Until Corrina 12/22/24 at 1743, Administer over 15 Minutes, Routine, PRN low blood sugar BG =/<50 mg/dL diphenhydrAMINE (Benadryl) tablet 25 mg 25 mg, Oral, Every 8 hours PRN, Starting on 12/17/24 at 1835, Until Corrina 12/22/24 at 1743, Routine, itching glucagon (human recombinant) injection 1 mg(Linked Group 3) 1 mg, Intramuscular, Every 15 min PRN, Starting on Thu12/16/24 at 0654, Until Corrina 12/22/24 at 1743, Routine, low blood sugar per Hypoglycemia Prevention and Treatment protocol glucose (Glutose) 40 % oral gel 15-30 grams of glucose(Linked Group 3) 15-30 grams of glucose, Sublingual, Every 15 min PRN, Starting on Thu12/16/24 at 0654, Until Corrina 12/22/24 at 1743, Routine, low blood sugar, per Hypoglycemia Prevention and Treatment protocol hydrOXYzine HCl (Atarax) tablet 25 mg 25 mg, Oral, 3 times daily PRN, Starting on 12/19/24 at 1437, Until Corrina 12/22/24 at 1743, Routine, anxiety ipratropium-albuterol (Duo-Neb) 0.5-2.5 mg/3 mL nebulizer solution 3 mL 3 mL, Nebulization, Every 6 hours PRN, Starting on Thu12/16/24 at 0631, Until Thu12/22/24 at 1743, Routine, shortness of breath, wheezing oxyCODONE (Roxicodone) immediate release tablet 10 mg(Linked Group 4) 10 mg, Oral, Every 4 hours PRN, Starting on 12/17/24 at 1153, Until Corrina 12/22/24 at 1743, Routine, severe pain 1059 (Given - Provider: Gregory Veliz RN) oxyCODONE (Roxicodone) immediate release tablet 5 mg(Linked Group 4) 5 mg, Oral, Every 4 hours PRN, Starting on 12/17/24 at 1153, Until Thu12/22/24 at 1743, Routine, moderate pain 1059 (See Alternative - Provider: Greer Veliz, JOSE MARTIN) prochlorperazine (Compazine) tablet 10 mg 10 mg, Oral, Every 6 hours PRN, Starting on Thu12/16/24 at 0625, Until Thu12/22/24 at 1743, Routine, nausea, vomiting sodium chloride 0.9 % flush 10 mL 10 mL, Intravenous, Every 1 hour PRN, Starting on Thu12/19/24 at 0005, Until Thu12/22/24 at 1743, Routine, Flush Before and After EVERY dose of medication. sodium chloride 0.9 % flush 10 mL(Linked Group 2) 10 mL, Intravenous, As needed, Starting on Thu12/20/24 at 1520, Until Thu12/22/24 at 1743, Routine, line care sodium chloride 0.9 % flush 20 mL 20 mL, Intravenous, Every 1 hour PRN, Starting on Thu12/19/24 at 0005, Until Thu12/22/24 at 1743, Routine, After blood draws and if any blood seen in tubing. Linked Groups Order Group 1: Tiotropium Norman Monohydrate (Spiriva Respimat) 2.5 MCG/ACT inhaler 2 puffJump to med 2 puff, Inhalation, Daily, First dose on Thu12/16/24 at 0900, Until Discontinued And mometasone-formoterol (Dulera 200) 200-5 MCG/ACT inhaler 2 puffJump to med 2 puff, Inhalation, 2 times daily, First dose on Thu12/16/24 at 0900, Until Discontinued Group 2: Saline lock IV (CANCELED) Once, On Thu12/20/24 at 1521, For 1 occurrence And sodium chloride 0.9 % flush 10 mLJump to med 10 mL, Intravenous, Every 12 hours, First dose (after last modification) on Thu12/20/24 at 2100, Until Discontinued, Routine And sodium chloride 0.9 % flush 10 mLJump to med 10 mL, Intravenous, As needed, Starting on Thu12/20/24 at 1520, Until Thu12/22/24 at 1743, Routine, line care Group 3: glucose (Glutose) 40 % oral gel 15-30 grams of glucoseJump to med 15-30 grams of glucose, Sublingual, Every 15 min PRN, Starting on Thu12/16/24 at 0654, Until Corrina 12/22/24 at 1743, Routine, low blood sugar, per Hypoglycemia Prevention and Treatment protocol Or dextrose 10 % (D10W) bolus 125 mLJump to med 125 mL, Intravenous, Every 15 min PRN, Starting on Thu12/16/24 at 0654, Until Corrina 12/22/24 at 1743, Administer over 15 Minutes, Routine, low blood sugar BG 51-89 mg/dL Or dextrose 10 % (D10W) bolus 250 mLJump to med 250 mL, Intravenous, Every 15 min PRN, Starting on Thu12/16/24 at 0654, Until Corrina 12/22/24 at 1743, Administer over 15 Minutes, Routine, PRN low blood sugar BG =/<50 mg/dL Or glucagon (human recombinant) injection 1 mgJump to med 1 mg, Intramuscular, Every 15 min PRN, Starting on Thu12/16/24 at 0654, Until Corrina 12/22/24 at 1743, Routine, low blood sugar per Hypoglycemia Prevention and Treatment protocol Group 4: oxyCODONE (Roxicodone) immediate release tablet 5 mgJump to med 5 mg, Oral, Every 4 hours PRN, Starting on 12/17/24 at 1153, Until Corrina 12/22/24 at 1743, Routine, moderate pain Or oxyCODONE (Roxicodone) immediate release tablet 10 mgJump to med 10 mg, Oral, Every 4 hours PRN, Starting on 12/17/24 at 1153, Until Corrina 12/22/24 at 1743, Routine, severe pain documented in this encounter Additional Health Concerns Infection Onset Date Last Indicated Resolved Time 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 12/16/2024 12/22/2024 Assessment Noted Time PHQ-9 Depression Total Score: 0 09/01/19 3:26 PM EDT A fall risk assessment has been complete d for the patient 11/29/2024 1:14 PM EDT A Body Mass Index follow-up plan has been documented for the patient 12/22/2024 2:34 PM EDT documented as of this encounter Care Teams [employer] Analyst Relationship Specialty Start Date End Date Laurie Gutierrez MD [address] [place] [id number] PCP - General 12/09/23 Joshua Martínez MD [address] [place] [phone] Consulting Physician Radiation Oncology 09/19/24 Sabine Morales LPN TCM Nurse 11/23/24 12/23/24 documented as of this encounter
--- OUTSIDE RECORDS SUMMARY | 2024-12-16 12:05 | XMS_ITS | Encounter Summary ---
Author Organization Healthcare Address [address] [place] [address] Care Team Providers Care Glycerine Plant Operator Name Role Phone Laurie Gutierrez MD Primary Care Provider [phone] Joshua Martínez MD Unavailable Sabine Morales LPN Unavailable Unavailable Reason for Visit * Reason Comments Shortness of Breath * Auth/Cert (Routine) Specialty Diagnoses / Procedures Referred By Contac t Referred To Contact Diagnoses Dyspnea History of lung cancer Atrial fibrillation with RVR (CMS/HCC) Incisional infection Multiple subsegmental pulmonary emboli without acute cor pulmonale (CMS/HCC) Desi Pop MD [address] [place] [address] Phone: tel: fax: PAV H Inpatient [address] [place] [address] Phone: tel: Referral ID Status Reason Start Date Expiration Date Visits Re quested Visits Authorized [id number] 1 1 Encounter Details Date Type Department Care Team (Late st Contact Info) Description 12/16/2024 12:05 PM EDT - 12/16/2024 2:00 PM EDT Surgery PAV A OPERATING ROOM [address] [place] [address] Abhilash Bangura MD [address] [place] [address] IRRIGATION AND DEBRIDEMENT, WOUND [41843 (CPT )] Surgery Details Date/Time Status Location OR Service Patient Class Case Class Case Type Trauma Case? 12/16/2024 12:05 PM Posted [facility] OR 07 Neurosurgery Inpatient E-Electi [...] living in a fdc (including now)? No 12/16/2024 CAGE ASSESSMENT Answer [...] drink first t laurie in the morning (EYE-STRIPPER MACHINE OPERATOR) to steady your nerves or to get rid of a hangover? 0 12/02/2024 CAGE Questionnaire Score 0 025 Utilities Answer Date Recorded In the past 12 months has th [employer], gas, oil, or water company threatened to [...] Hughes RN 6. Suicidal Behavior (Lifetime) No 9:03 PM EDT Jimmy Hughes RN documented as of this encounter Medications at Time of Discharge acetaminophen (Tylenol) 325 MG tablet Take 2 tablets by mouth every 6 hours. Under [place] law, monthly prescriptions (30 days) can [...] 399=12units max of 36units daily nystatin (Mycostatin) 446657 UNIT/GM powder Apply on bottom 2 times [...] diarrhea 60 tablet 1 5 01/03/20 25 documented as of this encounter Miscellaneous [...] PCP name and Address: Laurie Gutierrez MD [address] [place] [address] Referring provider name and address: No referring [...] tablets by mouth every 6 hours. Under [place] law, monthly prescriptions (30 days) can be refilled at 25 days and three-month prescriptions (90 days) at 80 days. Please contact the insurance company with questions if refills are denied. atorvastatin 40 MG tablet Commonly known as: Lipitor Take 1 tablet by mouth every evening. Breztri Aerosphere 160-9-4.8 MCG/ACT aerosol Generic drug: Wzxnbxv-Hpyshbvrdif-Ljnwefhzsx Inhale 2 puffs 2 (two) times a [...] than 399=12units max of 36units daily nystatin [id number] UNIT/GM powder Commonly known as: Mycostatin Apply [...] medications were sent to [facility] -[place], [place] - [address], [facility] [address] cefepime 1 g injection These medications were sent to [facility] [place], [place] - [address] [place] [id number] dilTIAZem CD 120 MG 24 hr capsule enoxaparin 100 MG/ML solution prefilled syringe metoprolol tartrate 50 MG tablet Discharge Diagnosis: 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 lung mass concerning for pneumonia vs [...] Time Provider Department Center 01/03/2025 9:00 AM [facility] JOSE MARTIN Vasquez 01/03/2025 9:40 AM Satnam Colvin MD [facility] 01/03/2025 11:00 AM [facility] 1 INFUSION TREATMENT [id number] [facility] 01/04/2025 2:30 PM [facility] 1 INFUSION TREATMENT [id number] [place] 01/05/2025 1:00 PM Lia Barnes APRN IDBCCLX Marge 01/05/2025 2:30 PM [facility] 2 INFUSION TREATMENT [id number] [facility] 01/19/2025 9:20 AM [facility] 01[facility]19/2025 10:45 AM Abhilash Bangura MD [facility] 01/26/2025 4:30 PM Lia Barnes QLIKVIEW DEVELOPER IDBCCLX Marge 03/08/2025 1:00 PM Teresita Oconnell MD [facility] I Pertinent Physical Exam At Time [...] Note Teresa Rivera 64 y.o. female CSN: [id number] Admission: 12/15/2024 8:36 PM Primary Problem: Dyspnea Patient medically ready for discharge. Patient to transfer home with family transport. Patient to go home with IV abx until 01/26/25. Patient receiving abx through [facility]. No home health able to be secured, so patient will get PICC line dressing and lab draws at [facility] office ([phone]) per patient preference. Patient to follow up with Neurosurgery, ID and oncology outpatient. Primary Discharge Coordinator: Primary Caregiver: Self Assistance Available at Discharge: Availability of Care Givers (#Hours): 24 hours Family/Discharge Coordinator(s) Willingness Assessed to care for patient at home: Yes Family/Discharge Coordinator(s) Readiness Assessed to care for patient at home: Yes Housing Circumstances-Z Codes: Housing Circumstances (select all that apply): Low Income (101-300% Federal Poverty Guidlines) - Z596 Patient Referred to Financial or Community Resources: None Discharge Facility/Level of Care Needs: Discharge Facility/Level of Care Needs: 1-Home or Self Care Patient's Choice of Community Agency(s): Patient's Choice of Community Agency(s): [facility] Patient/Family Anticipated Services at Transition: Patient/Family Anticipated Services at Transition: outpatient care DME/Equipment Needed after Discharge: Equipment Currently Used at Home: commode chair, walker, rolling, wheelchair, manual, oxygen ([employer]) Equipment Needed After Discharge: none Readmission Within the Last 30 Days: Yes Medicare Documentation: Medicare Second Notice?: No (medicaid insurance) Follow-up: [facility] [address] [address] Go on 12/26/2024 Go here for PICC [...] set up with [facility] office. Vonnie Gutierrez, RN * Care Plan - Quentin Montoya [...] Support Patient and Family Response Flowsheets (Taken 12/22/2024 110) Supportive Measures: active [...] Support Patient and Family Response Flowsheets (Taken 12/22/2024 110) Supportive Measures: active [...] Intervention: Minimize and Manage Hypoglycemia Flowsheets (Taken 12/21/2024 1917) Hypoglycemia Management: blood glucose monitored * Progress Notes - Vonnie Gutierrez RN - 12/21/2024 2:38 PM EDT Case Management Adult Progress Note Teresa Rivera 64 y.o. female CSN: [id number] Admission: 12/15/2024 8:36 PM Primary Problem: Dyspnea [...] home health referrals. No home healthavailable to diamond picker patient. Patient requesting to come to [place] for PICC care and lab draws. RNCM [...] way to dispose of used syringes. * [facility]azah[facility] - Nahomi Purdy, PharmD - 12/21/2024 1:59 PM EDT Images from the original note were not included. [id number] Enoxaparin Injection IMPORTANT WARNING: If you have [...] of all of the prescription and nonprescription (cjck-dvg-alcfqpy) medicines, vitamins, minerals, and dietary supplements you [...] or pharmacist about specific clinical use. The [employer] represents that the information provided hereunder was formulated with a reasonable standard of care, and in conformity with professional standards in the field. The [employer] makes no representations or warranties, express or implied, including, but not limited to, any implied warranty of merchantability and/or fitness for a particular purpose, with respect to such information and specifically disclaims all such warranties. Users are advised that decisions regarding drug therapy are complex medical decisions requiring the independent, informed decision of an appropriate health summer child caregiver, and the information is provided for informational purposes only. The entire monograph for a drug should be reviewed for a thorough understanding of the drug's actions, uses and side effects. The [employer] does not endorse or recommend the use of any drug.The information is not a substitute for medical care. AHFS?? Patient Medication Information?. ?? Copyright, 2023. The [employer]-System Pharmacists??, [address], [address], [place], [place]. All Rights Reserved. Duplication for commercial use must be authorized by [facility]. Selected Revisions: December 05, 2023. AHFS?? Patient [...] cell lung cancer with resected oligmetastasis to ORACLE BUSINESS INTELLIGENCE DEVELOPER RUL lung mass concerning for pneumonia vs [...] ACEI Restart lasix Seizure - Treated with Keppra inpatient, no [...] scheduled Intervention: Prevent Skin Injury Flowsheets (Taken 12/21/2024 022) Body Position: neutral body alignment neutral head [...] Intervention: Identify and Manage Contributors Flowsheets Taken 12/21/2024 0229 by Rufus Florez building performance specialist Review/Management: medications reviewed Taken 12/20/2024 0725 by [...] MD Resident Physician PGY-1 Department of [facility] Cosigned by Abhilash Bangura MD [...] Note Teresa Rivera 64 y.o. female CSN: [id number] Admission: 12/15/2024 8:36 PM Primary Problem: Dyspnea [...] on 12/18 per neurosurgery. Ongoing discussion with environmental remediation consultant teams to determine timing of resuming oral anticoagulation as well as when to resume outpatient chemotherapy. PT & OTare consulted. 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 For all questions regarding OPAT after discharge should be directed to the OPAT Team at (Select Option 3 for IV Antibiotics/PICC Issues) between 8am-5pm. After 5 pm, or during weekends/ holidays, please call the paging metal wire coating operator at to reach the on-call ID [...] is no recent study available for direct pseo-wp-jbel comparison. XR Chest 1 View Result Date: [...] Intravenous Every 8 hours 12/18/24 1308 MICROBIOLOGY: 8 Bone culture (incluidng anerobic, AFB and fungal) [...] had a respiratory culture that grew MDR FARM HELPER pseudomonas. She is now here with concern for postobstructive pneumonia and craniotomy surgical site infection. Blood cultures are NGTD. Patient ultimately had OR washout on 12/16 with NSGY with purulence/signs of infection associated with and below bone flap. Intra-operative cultures (+) PsA. PROBLEM LIST Craniotomy surgical site infection Pneumonia with history of MDR/FARM HELPER organism Multiple bilateral PE Small cell lung [...] PA-C Division of Infectious Diseases Available on iSOCO Chat History, assessment, and plan discussed with ID attending, Dr. Shearer [1] Current Facility-Administered Medications Medication Dose Route Frequency Provider Last Rate Last Admin acetaminophen (Tylenol) tablet 650 mg 650 mg Oral q6h PRN Lisa Lloyd DO 650 mg at 12/19/24 1022 atorvastatin (Lipitor) tablet 40 mg 40 mg Oral q PM Gordy Purvis, QLIKVIEW DEVELOPER, DNP 40 mg at 12/19/24 1752 cefepime (Maxipime) 2 g in sodium chloride 0.9% 100 mL IVPB (vial adapter required) 2 g [id number] Lisa Lloyd DO 36.7 mL/hr at 12/20/24 0956 2 g at 12/20/24 0956 cetirizine (ZyrTEC) tablet 10 mg 10 mg Oral Daily MadGordy collado APRN, DNP 10 mg at 12/20/24 0955 [...] mg 40 mg Oral Daily Lisa Lloyd DO 40 mg at 12/20/24 0955 gabapentin (Neurontin) capsule 400 mg 400 mg Oral TID Lisa Lloyd DO 400 mg at 12/20/24 0955 heparin [...] DO 50 mg at 12/20/24 0955 Tiotropium [place] Monohydrate (Spiriva Respimat) 2.5 MCG/ACT inhaler 2 [...] flush 10 mL 10 mL Intravenous PRN [place] Gordy N, QLIKVIEW DEVELOPER, DNP sodium chloride 0.9 % flush 10 [...] embolism 12/16/2024 COPD (chronic obstructive pulmonary disease) ([facility]) 10/25/2024 Small cell lung cancer ([facility]) 09/09/2024 Anemia 09/06/2024 Morbid obesity with BMI of 40.0-44.9, adult ([facility]) 09/02/2024 Pneumonia 08/05/2024 Type 2 diabetes mellitus without complications 08/24/2014 Diabetes mellitus ([facility]) 08/25/2013 Incisional infection 12/15/2024 Procedures 12/16/2024 Procedure(s): IRRIGATION AND DEBRIDEMENT, WOUND Past Medical History Patient has a past medical history of A-fib ([facility]), Anxiety, Brain tumor ([facility]), Chemotherapy-induced nausea and vomiting (08/28/2023), COPD (chronic obstructive pulmonary disease) ([facility]/HCC), Depression, Heart failure, Hyperlipidemia, Hypertension, Osteoarthritis, Pneumonia, Small cell lung cancer ([facility]), and Type 2 diabetes mellitus. [...] Present: Yes Family/Caregiver: Other (Specify) (pt's sister) Bulk Gas Specialist: Not Applicable Presentation Oxygen Therapy: Supplemental oxygen [...] Level of Mobility: Ambulatory- household only Mobility [place]: Independent gait with device History of Falls: [...] Mobility Bed Mobility Exam: Scooting/Bridging Level of Nadeau: Contact guard (to EOB) Physical/Nonphysical Assist: Supervision, Verbal Cues Assistive Device: Bed rails Bed Mobility Exam: Supine to Sit Level of Nade[place]: Contact guard Physical/Nonphysical Assist: Supervision, Verbal Cues Assistive Device: Bed rails Transfers Transfer Exam: Sit to stand Level of Nade[place]: Contact guard Physical/Nonphysical Assist: Supervision, Verbal Cues Assistive Device: Walker, rolling Transfer Exam: Stand to Sit Level of Nade[place]: Contact guard Physical/Nonphysical Assist: Supervision, Verbal Cues [...] Where Assessed: Edge of bed Standardized Assessments [facility] 6-Click Daily Activities Help from Other: Don/Doff Regular Lower Body Clothings: Little Help From Other: Bathing: Little Help From Other: Toileting: Little Help From Other: Don/Doff Upper Body Clothings: None Help From Other: Grooming: None Help From Other: Eating Meals: None [facility] 6 Click - Daily Activities Score: 21 [...] embolism 12/16/2024 COPD (chronic obstructive pulmonary disease) ([facility]) 10/25/2024 Small cell lung cancer ([facility]) 09/09/2024 Anemia 09/06/2024 Morbid obesity with BMI of 40.0-44.9, adult ([facility]) 09/02/2024 Pneumonia 08/05/2024 Type 2 diabetes mellitus without complications 08/24/2014 Diabetes mellitus ([facility]) 08/25/2013 Incisional infection 12/15/2024 Procedures 12/16/2024 Procedure(s): IRRIGATION AND DEBRIDEMENT, WOUND Past Medical History Patient has a past medical history of A-fib ([facility]), Anxiety, Brain tumor ([facility]), Chemotherapy-induced nausea and vomiting (08/28/2023), COPD (chronic obstructive pulmonary disease) ([facility]), Depression, Heart failure, Hyperlipidemia, Hypertension, Osteoarthritis, Pneumonia, Small cell lung cancer ([facility]), and Type 2 diabetes mellitus. Past Surgical History Patient has a past surgical history that includes Tubal ligation (N/A); Tympanostomy tube placement(N/A); and Brain surgery. Precautions Medical Precautions: Fall precautions, Seizure precautions Medical Precautions: contact Subjective Patient agreeable to PT Evaluation. Patient reported hoping to drink a V8. Participants in Care Family/Caregiver Present: Yes Family/Caregiver: Other (Specify) (Sister) Bulk Gas Specialist: Not Applicable Presentation Oxygen Oxygen Therapy: Supplemental [...] Level of Mobility: Ambulatory- household only Mobility Nadeau: Independent gait with device History of Falls: [...] Mobility Bed Mobility Exam: Scooting/Bridging Level of Nadeau: Contact guard (to EOB) Physical/Nonphysical Assist: Supervision, Verbal Cues, Minimal cues Assistive Device: Bed rails Bed Mobility Exam: Supine to Sit Level of Nadeau: Contact guard Physical/Nonphysical Assist: Supervision, Verbal Cues, Minimal cues Assistive Device: Bed rails Verbal/tactile cues provided to use bed rails to assist with performing safe transfers. Patient demonstrated understanding. Transfers Transfer Exam: Sit to stand Level of Nadeau: Contact guard Physical/Nonphysical Assist: Supervision, Verbal Cues, Minimal cues Assistive Device: Walker, rolling Transfer Exam: Stand to Sit Level of Nadeau: Contact guard Physical/Nonphysical Assist: Supervision, Verbal Cues, [...] guard Standardized Assessments Standardized Assessments Standardized Assessments: [facility] 6-Clicks Mobility Assessment [facility] 6-Clicks Mobility Assessment Difficulty patient has [...] 3-5 steps with a railing?: A lot [facility] 6-Clicks Mobility Assessment Total : 17 [...] PM. * Progress Notes - Summer Eisenberg, QLIKVIEW DEVELOPER, DNP - 12/20/2024 9:30 AM EDT Medical [...] cell lung cancer with resected oligometasis to ORACLE BUSINESS INTELLIGENCE DEVELOPER RUL lung mass concerning for pneumonia vs [...] Eisenberg APRN, DNP Division of Medical Oncology [address] [place] [address] * Care Plan - Daphnie Perez RN [...] Intervention: Optimize Oxygenation and Ventilation Flowsheets Taken 12/20/2024 025 Airway/Ventilation Management: position adjusted pulmonary hygiene promoted Taken 12/19/20242044 Head of Bed (HOB) Positioning: HOB at 30-45 degrees * Cynthia Luz RN - 12/19/2024 4:08 PM EDT Images from the original note were not included. [id number] PICC Line Care PICC stands for peripherally [...] arm Last Reviewed Date: 2024 00:00:00 ?? [id number] [employer]. All rights reserved. This information is not intended as a substitute for professional medical care. Always follow your healthcare professional's instructions. * Cynthia Luz RN - 12/19/2024 4:08 PM EDT Images from the original note were not included. [id number] * Cytnhia Luz RN - 12/19/2024 4:08 PM EDT Images from the original note were not included. [id number] * Cynthia Luz RN - 12/19/2024 4:08 [...] your house or a medical facility. The telephonic nurse case manager/social research assistant will setthat up based on your insurance. [...] or during weekends/ holidays, call the paging metal wire coating operator at . Ask for the infectious disease fellow control systems technician. Call the clinic if you have any of these: ? Fevers greater than 100.5??F ? An allergic reaction, such as rash ? Nausea, vomiting, or diarrhea ? New or returning redness near the IV line ? Redness, pain, swelling, or pus around the IV line * [facility] - Cynthia Tilley RN - 12/19/2024 4:08 PM EDT Images from the original note were not included. [id number] Flushing Your PICC Line at Home Your [...] soap and water, use an alcohol-based hand fighting vehicle systems maintainer. The gel should have at least 60% [...] PICC. Last Reviewed Date: 2024 00:00:00 ?? [id number] [employer]. All rights reserved. This information is not intended as a substitute for professional medical care. Always follow your healthcare professional's instructions. * Zachary LeahyBRETT - Cynthia Tilley RN - 12/19/2024 4:08 PM EDT Images from the original note were not included. [id number] Cefepime Injection WHY is this medicine prescribed? [...] of all of the prescription and nonprescription (noui-lvh-wliebhj) medicines, vitamins, minerals, and dietary supplements you [...] or pharmacist about specific clinical use. The [employer] represents that the information provided hereunder was formulated with a reasonable standard of care, and in conformity with professional standards in the field. The [employer] makes no representations or warranties, express or implied, including, but not limited to, any implied warranty of merchantability and/or fitness for a particular purpose, with respect to such information and specifically disclaims all such warranties. Users are advised that decisions regarding drug therapy are complex medical decisions requiring the independent, informed decision of an appropriate health summer child caregiver, and the information is provided for informational purposes only. The entire monograph for a drug should be reviewed for a thorough understanding of the drug's actions, uses and side effects. The [employer] does not endorse or recommend the use of any drug.The information is not a substitute for medical care. AHFS?? Patient Medication Information?. ?? Copyright, 2023. The [employer]ists??, [address], [address], [place], [place]. All Rights Reserved. Duplication for commercial use must be authorized by [facility]. Selected Revisions: October 31, 2015. AHFS?? Patient Medication Information?. ?? Copyright, 2024 * Zachary LeahyBRETT - Cynthia Tilley RN - 12/19/2024 4:08 PM EDT Images from the original note were not included. [id number] Central Line Infections You need a central [...] water. Or they use an alcohol-based hand fighting vehicle systems maintainer containing at least 60% alcohol. ? Using [...] (warm or cold), and use alcohol-based hand fighting vehicle systems maintainer with at least 60% alcohol as directed. To clean your hands well,follow the guidelines on this sheet. Visitors should wash their hands well when they arrive and when they leave. ? Make sure the health care staff and your visitors clean their hands. They should use soap and clean, running water or an alcohol-based hand fighting vehicle systems maintainer before and after checking the line. Don?t [...] good choice for cleaning your hands. The fighting vehicle systems maintainer should have at least 60% alcohol. Note that some germs can't be killed by alcohol. Your care team can answer any questions you have about when to use a hand fighting vehicle systems maintainer, or when it?s better to wash with soap and water. Follow these steps: ? Spread the hand fighting vehicle systems maintainer in the palm of one hand. (Check the package for specific guidelines.) ? Rub your hands together briskly. Clean the backs of your hands, the palms, between your fingers, and up your wrists. ? Rub until the fighting vehicle systems maintainer is gone and your hands are completely [...] skin. Last Reviewed Date: 2024 00:00:00 ?? [id number] [employer]. All rights reserved. This information is not [...] Lumen PICC Patient Specific Outpatient Circumstances: [address] [address] (patients home address) Patient will be staying with her sister Era at: [address] Family Support: Extended Emergency Contact Information Primary Emergency Contact: NicoleZachary Mobile Relation: Son Preferred language: Estonian Bulk Gas Specialist needed? No Secondary Emergency Contact: [facility] Mobile Relation: Daughter Preferred language: Estonian Bulk Gas Specialist needed? No Contact information: Teresa Rivera [phone] Outpatient services (including home infusion, home health, facility referral: See recent [facility] case management/social work note for finalization of services ID follow up appointment: Future Appointments Date Time Provider Department Center 01/19/2025 9:20 AM MR 2 [facility] 01/19/2025 10:45 AM Abhilash Bangura MD [facility] 03/08/2025 1:00 PM Teresita Oconnell MD [facility] Patient Assessment I spoke with patient [...] via secure chat or staff messaging in iSOCO. Patient and family will need to be [...] Note Teresa Rivera 64 y.o. female CSN: [id number] Admission: 12/15/2024 8:36 PM Primary Problem: Dyspnea [...] is no recent study available for direct piid-kr-itim comparison. XR Chest 1 View Result Date: [...] had a respiratory culture that grew MDR FARM HELPER pseudomonas. She is now here with concern for postobstructive pneumonia and craniotomy surgical site infection. Blood cultures are NGTD. Patient ultimately had OR washout on 12/16 with NSGY with purulence/signs of infection associated with and below bone flap. Intra-operative cultures (+) PsA. PROBLEM LIST Craniotomy surgical site infection Pneumonia with history of MDR/FARM HELPER organism Multiple bilateral PE Small cell lung [...] PA-C Division of Infectious Diseases Available on [facility] Chat History, assessment, and plan discussed with [...] mL IVPB (vial adapter required) 2 g [id number] Lisa Lloyd, DO 36.7 mL/hr at 12/19/24 1023 2 g at 12/19/24 1023 cetirizine (ZyrTEC) tablet 10 mg 10 mg Oral Daily Madujiberaine Gordy N, QLIKVIEW DEVELOPER, DNP 10 mg at 12/19/24 0837 glucose (Glutose) 40 % oral gel 15-30 grams of glucose 15-30 grams of glucose Sublingual q15 min PRN Madujibeya, Gordy Imelda, QLIKVIEW DEVELOPER, DNP Or dextrose 10 % (D10W) bolus 125 mL 125 mL Intravenous q15 min PRN Madujibeya, Gordy N, QLIKVIEW DEVELOPER, DNP Or dextrose 10 % (D10W) bolus 250 mL 250 mL Intravenous q15 min PRN Madujibeya, Gordy Imelda, QLIKVIEW DEVELOPER, DNP Or glucagon (human recombinant) injection 1 mg 1 mg Intramuscular q15 min PRN Madujibeya, Gordy N, QLIKVIEW DEVELOPER, DNP diphenhydrAMINE (Benadryl) tablet 25 mg 25 [...] DO 500 mg at 12/19/24 0837 Tiotropium [place] Monohydrate (Spiriva Respimat) 2.5 MCG/ACT inhaler 2 [...] tablet 40 mg 40 mg Oral Daily Fawaduhai, Gordy Segura, QLIKVIEW DEVELOPER, DNP 40 mg at 12/19/24 0837 prochlorperazine (Compazine) tablet 10 mg 10 mg Oral q6h PRN Fawadujibeya, Gordy N, QLIKVIEW DEVELOPER, DNP sodium chloride 0.9 % flush 10 mL 10 mL Intravenous q12h Madujibeya, Gordy N, QLIKVIEW DEVELOPER, DNP 10 mL at 12/19/24 0207 And sodium chloride 0.9 % flush 10 mL 10 mL Intravenous PRN Hyun, Gordy Segura, QLIKVIEW DEVELOPER, DNP sodium chloride 0.9 % flush 10 mL 10 mL Intravenous q12h Lisa Lloyd C, DO 10 mL at 12/19/24 1200 sodium [...] on 12/18 per neurosurgery. Ongoing discussion with environmental remediation consultant teams to determine timing of resuming oral anticoagulation as well as when to resume outpatient chemotherapy. PT & OTare consulted. 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 lung mass concerning for pneumonia vs [...] of Hospital Medicine Epic Chat Preferred Pager: [phone] 12/19/2024 [1] atorvastatin, 40 mg, Oral, q PM cefepime, 2 g, Intravenous, q8h cetirizine, 10 mg, Oral, Daily FLUoxetine, 40 mg, Oral, Daily insulin glargine-yfgn, 5 Units, Subcutaneous, Nightly levETIRAcetam, 1,000 mg, Oral, BID magnesium sulfate, 2 g, Intravenous, Once metoprolol tartrate, 50 mg, Oral, TID metroNIDAZOLE, 500 mg, Oral, q8h Tiotropium [place] Monohydrate, 2 puff, Inhalation, Daily And mometasone-formoterol, [...] Pain and Promote Comfort Flowsheets (Taken 12/19/2024 0630) Pain Management Interventions: medication (see MAR) Problem: [...] Supportive Measures: active listening utilized Taken 12/18/2024 0113 by Mitzi Porter RN Family/Support System Care: [...] Prevent or Manage Pain Flowsheets Taken 12/19/2024 06 by Ammy Prather RN Pain Management Interventions: [...] Please call with any questions or concerns. [phone] Félix Duval MD Resident Physician PGY-1 Department of [facility] Cosigned by Abhilash Bangura MD [...] line Insert PICC line Performed by: Brian Dai, RN Authorized by: Lisa Lloyd DO [place] Protocol: Verbal consent obtained?: Yes Written consent [...] Left Location (Adult): Basilic vein (Largest vein, gckndbtt-gc-umgq ratio 18%.) Site selection rationale: Infiltration from PIV in RUE. Patient position: Supine Catheter Lot #: [id number] Catheter ops manager: Bard Power PICC Provena Catheter with Solo Valve Catheter placed: Double lumen Catheter size: 4 Fr Catheter trimmed length: 48 Catheter threaded length: 48 Vein placed in: SVC Catheter cm indwellin Catheter cm outside: 0 Placement confirmed by: Consignd 3CG technology Pre-procedure: Landmarks identified Ultrasound guidance: [...] okay to use order will be placed. [place] limb precaution armband placed on left wrist [...] to PACS. * Progress Notes - Lisa Lloyd, DO - 12/18/2024 9:09 AM EDT Images [...] last 7 days Lab Units 12/18/24 0516 12/17/24215812/17/24 1522 12/16/24 0552 WBC 10*3/uL 7.00 -- [...] cell lung cancer with resected oligmetastasis to ORACLE BUSINESS INTELLIGENCE DEVELOPER RUL lung mass concerning for pneumonia vs [...] of Hospital Medicine Epic Chat Preferred Pager: [phone] 12/18/2024 [1] atorvastatin, 40 mg, Oral, q PM cefepime, 2 g, Intravenous, q12h cetirizine, 10 mg, Oral, Daily FLUoxetine, 40 mg, Oral, Daily insulin glargine-yfgn, 5 Units, Subcutaneous, Nightly levETIRAcetam, 1,000 mg, Oral, BID metoprolol tartrate, 25 mg, Oral, TID metroNIDAZOLE, 500 mg, Oral, q8h Tiotropium [place] Monohydrate, 2 puff, Inhalation, Daily And mometasone-formoterol, [...] Please call with any questions or concerns. [phone] Crystal Vuong MD Resident Physician, PGY-2 Department of [facility] Cosigned by Abhilash Bangura MD [...] Review Outcome: Ongoing, Progressing Flowsheets (Taken 12/18/2024 0113) Progress: no change Plan of Care Reviewed [...] Please call with any questions or concerns. [phone] Zachary Brown MD Resident Physician, PGY-2 Department of neurosurgery Pager: [phone] Cosigned by Abhilash Bangura MD at 12/19/2024 [...] cell lung cancer with resected oligometasis to ORACLE BUSINESS INTELLIGENCE DEVELOPER RUL lung mass concerning for pneumonia vs [...] confusion. -- --Oncology History--- initially diagnosed with [id number], stage IIIA limited stage of the right [...] by me; any relevant updates made in iSOCO. Social History Lives in [place]. Former smoker. Allergies Reviewed by me; any relevant updates made in iSOCO. Medications Current Medications[1] Physical Exam Vitals: 12/16/24 [...] Labs, Imaging, and Microbiology Reviewed personally in Epic. Notable as discussed in Assessment and Plan. [...] Oral, TID, Gordy Purvis APRN, DNP Tiotropium [place] Monohydrate (Spiriva Respimat) 2.5 MCG/ACT inhaler 2 puff, 2 puff, Inhalation, Daily, 2 puff at 12/16/24 0842 AND mometasone-formoterol (Dulera 200) 200-5 MCG/ACT inhaler 2 puff, 2 puff, Inhalation, BID, Gordy Purvis APRN, DNP, 2 puff at 12/16/24 0845 pantoprazole (Protonix) EC tablet 40 mg, 40 mg, Oral, Daily, Gordy Purvis APRN, VINCENZO piperacillin-tazobactam (Zosyn) 4.5 g in sodium chloride [...] 10 mL, Intravenous, PRN, Gordy Purvis APRN, VINCENZO Current Outpatient Medications: acetaminophen (Tylenol) 325 MG tablet, Take 2 tablets by mouth every 6 hours. Under [place] law, monthly prescriptions (30 days) can be refilled at 25 days and three-month prescriptions (90 days) at80 days. Please contact the insurance company with questions if refills are denied. 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 RUL lung mass concerning for pneumonia vs [...] admission without hydronephrosis Seizure - Treated with Keppra inpatient, no [...] of Hospital Medicine Epic Chat Preferred Pager: [phone] 12/17/2024 [1] atorvastatin, 40 mg, Oral, q PM cefepime, 2 g, Intravenous, q12h cetirizine, 10 mg, Oral, Daily FLUoxetine, 40 mg, Oral, Daily insulin glargine-yfgn, 5 Units, Subcutaneous, Nightly levETIRAcetam, 1,000 mg, Oral, BID metoprolol tartrate, 25 mg, Oral, TID metroNIDAZOLE, 500 mg, Oral, q8h Tiotropium [place] Monohydrate, 2 puff, Inhalation, Daily And mometasone-formoterol, [...] - 12/16/2024 4:43 PM EDT Patient: Teresa Sweetser Anesthesia Type: general Vitals Value Taken Time [...] PM EDT Operative Note Date: 12/16/24 Location: [place] Name: Teresa Rivera, : 1960, Diagnoses: Pre-op Diagnosis Incisional infection Post-op Diagnosis Incisional infection Procedure(s): Wound washout/revision with craniectomy for infected bone flap Attending Surgeon(s): * Abhilash Bangura - Primary Dope Mixer(s): * Barron Baer MD - Resident - [...] Note Teresa Rivera 64 y.o. female CSN: [id number] Admission: 12/15/2024 8:36 PM Primary Problem: Dyspnea Floor Layer Tile reviewed chart to complete this Initial Case Management Assessment. PCP: Laurie Gutierrez MD Emergency Contact: Extended Emergency Contact Information Primary Emergency Contact: Cleve Riveraus Mobile Relation: Son Preferred language: Estonian Bulk Gas Specialist needed? No Secondary Emergency Contact: Aurora Rivera Mobile Relation: Daughter Preferred language: Estonian Bulk Gas Specialist needed? No Insurance: Primary Visit Coverage Payer Plan Sponsor Code Group Number Group Name [employer] [id number] Primary Visit Coverage Subscriber Subscriber ID Subscriber Name Subscriber SSN Subscriber Address [id number] TERESA RIVERA [id number] [place] [address] Patient information: Primary Caregiver: Self Support System: Immediate family Daily Living Activities: Functional Status: Independent Living Arrangements: Alone Type of Residence: Private residence [address] [place] [address] Current DME: Equipment Currently Used at Home: [...] Dialysis Services: None Living Will/Advance Directive/Power of Placer Miner /Guardian: None Additional Comments: Patient admitted for worsening dyspnea and hypoxia noted to desaturate to 80s on her baseline oxygen during activity. Patient going for I&D of wound on this date. RNCM will continue to monitor for further discharge needs. Vonnie Gutierrez RN * Progress Notes - ePpper Evans PharmD - 12/16/2024 12:00 PM EDT [...] ] Family [ ] Friend [ ] Bulk Gas Specialist [X] Medical records HISTORY OF PRESENT ILLNESS: [...] - 12/10/24 after having a seizure in [facility]. Some notes about concern for meningitis; underwent [...] note, sputum culture 12/01/24 grew pseudomonas aeruginosis MDR/FARM HELPER. Neurosurgery was consulted and plans to take [...] tablets by mouth every 6 hours. Under [place] law, monthly prescriptions (30 days) can be refilled at 25 days and three-month prescriptions (90 days) at 80 days. Please contact the insurance company with questions if refills are denied. Patient taking differently: Take 2 tablets by mouth every 6 hours. 11/16/24 Torrie Mustafa PA atorvastatin (Lipitor) 40 MG tablet Take 1 tablet by mouth every evening. Provider, MD Jef Uhirgdr-Rnkodwemdqk-Nxbrfxcehn (Breztri Aerosphere) 160-9-4.8 MCG/ACT aerosol Inhale 2 [...] to start again. ProviderJef MD nystatin (Mycostatin) 851207 UNIT/GM powder Apply on bottom 2 times a day 11/08/24 Satnam Colvin MD ondansetron ODT (Zofran-ODT) 4 MG disintegrating tablet Dissolve 1 tablet on the tongue every 6 hours as needed for nausea or vomiting. 12/10/24 Bernice Eckert MD pantoprazole (Protonix) 40 MG EC tablet Take 1 tablet by mouth daily. Do not crush, chew, or split.ProviderJfe MD pen needle, diabetic 31G X 5 [...] taking: Reported on 12/01/2024 11/26/24 12/10/24 Jef Hendrcikson MD CURRENT MEDICATIONS: Current Medications[4] SOCIAL HISTORY: [...] -- 91 26 95 % -- 12/16/24 010 -- -- -- 56 19 95 % [...] Methicillin Resistant Staphylococcus aureus (MRSA) by PCR [[id number]] (Normal) Collected: 12/16/24 075 Order Status: Completed Specimen: Swab from Nares [...] laboratory testing. Respiratory Culture and Gram Stain [[id number]] (Abnormal) Collected: 12/16/24 0847 Order Status: Completed [...] yeast Streptococcus pneumoniae and Legionella Urinary Antigen [[id number]] (Normal) Collected: 12/16/24 0839 Order Status: Completed Specimen: Urine, Clean Catch Updated: 12/16/24 0945 Legionella pneumophila serogroup 1 Antigen Result (Urine) Negative Streptococcus pneumoniae Antigen Result (Urine) Negative Multi Drug Resistance Test [[id number]] Collected: 12/16/24 0750 Order Status: Sent Specimen: Swab from Nares and Carole Rectal Updated: 12/16/24 0845 Blood Culture (Aerobic/Anaerobet Set) [[id number]] Collected: 12/16/24 0552 Order Status: Completed Specimen: Blood, Venous Updated: 12/16/24 0819 Culture Culture in lab Narrative: Low blood volume submitted, results may be compromised Blood Culture (Aerobic/Anaerobet Set) [[id number]] Collected: 12/15/248 Order Status: Completed Specimen: Blood, Venous Updated: 12/16/24 0301 Culture Culture in lab Nasopharyngeal Respiratory Panel [[id number]] (Normal) Collected: 12/15/242318 Order Status: Completed Specimen: [...] Respiratory PCR Panel is performed using the Fronto instrument. This test is FDA approved for use with Nasopharyngeal swabs only. This test is used for clinical purposes. It should not be regarded as investigational or for research. The [facility] Clinical Microbiology Laboratory is certified under the Clinical Laboratory Improvement Amendments of 1988 (CLIA-88) as qualified to perform high complexity clinical laboratory testing. SARS CoV-2/COVID-19 by PCR - Rapid [[id number]] (Normal) Collected: 12/15/242318 Order Status: Completed Specimen: [...] testing. This test was performed on the [employer] SARS CoV-2 Plus assay test, a PCR- based method. Negative results should be considered presumptive and do not preclude current or future infection obtained through community transmission or other exposures. Negative results must be considered in the context of an individual's recent exposures, history, presence of clinical signs and symptoms consistent with COVID-19. SARS-CoV-2, Flu A, Flu B, and RSV - Rapid [[id number]] Order Status: Canceled Specimen: Swab from Nasopharynx [...] had a respiratory culture that grew MDR FARM HELPER pseudomonas. She is now here with concern for postobstructive pneumonia and craniotomy surgical site infection. Blood cultures are pending. She was started on zosyn. Neurosurgery was taking her on 12/16 for a washout of her craniotomy site. PROBLEM LIST Craniotomy surgical site infection Pneumonia with history of MDR/FARM HELPER organism Multiple bilateral PE Small cell lung cancer with mets to the brain on chemotherapy History of craniotomy RECOMMENDATIONS: - Start vancomycin, pharmacy to dose, to cover gram positive skin pathogens likely to be involved in surgical site infection - Stop zosyn - Start cefepime 2g q8h and flagyl 500 mg TID, given history of MDR/FARM HELPER pseudomonas - Obtain bone/tissue/fluid cultures in the OR and send for gram stain/culture, fungal cultures, AFBcultures - Obtain repeat sputum culture - Will follow blood cultures - Monitor CBCd, CMP, and vancomycin levels on the above antibiotics Thank you for allowing us to participate in this patient's care. ID will follow. Mariah Hurley PA-C Division of Infectious Diseases Available on iSOC[employer] Chat History, assessment, and plan discussed with [...] [1] Past Medical History: Diagnosis Date A-fib ([facility]) Anxiety Brain tumor ([facility]) Chemotherapy-induced nausea and vomiting 08/28/2023 COPD (chronic obstructive pulmonary disease) ([facility]) Depression Heart failure Hyperlipidemia Hypertension Osteoarthritis Pneumonia Small cell lung cancer ([facility]) Type 2 diabetes mellitus [2] Past Surgical History: Procedure Laterality Date BRAIN SURGERY TUBAL LIGATION N/A Tubal Ligation from [employer] TYMPANOSTOMY TUBE PLACEMENT N/A Ear Surgery Eustachian Tube from [employer] [3] Allergies Allergen Reactions Cephalexin Nausea and [...] Oral TID Gordy Purvis APRN, DNP Tiotropium [place] Monohydrate (Spiriva Respimat) 2.5 MCG/ACT inhaler 2 [...] 10 mL Intravenous PRN Madujibeya, Gordy N, QLIKVIEW DEVELOPER, DNP Current Outpatient Medications Medication Sig Dispense Refill acetaminophen (Tylenol) 325 MG tablet Take 2 tablets by mouth every 6 hours. Under [place] law, monthly prescriptions (30 days) can be refilled at 25 days and three-month prescriptions (90 days) at 80 days. Please contact the insurance company with questions if refills are denied. (Patient taking differently: Take 2 tablets by mouth every 6 hours.) 100 tablet 0 atorvastatin (Lipitor) 40 MG tablet Take 1 tablet by mouth every evening. Dfyiyjo-Kttdtttwdtv-Uiszpyujhj (Breztri Aerosphere) 160-9-4.8 MCG/ACT aerosol Inhale 2 [...] 399=12units max of 36units daily nystatin (Mycostatin) 331026 UNIT/GM powder Apply on bottom 2 times [...] AM. A/P: Post obstructive pneumonia, history of MDR/FARM HELPER organism Acute on chronic hypoxic respiratory failure [...] per protocol - will further discuss ongoing terminal computer operator anticoagulation with neurosurgery and with oncology Stage [...] and consent patient * H&P - Gordy Purvis, SHARDA, DNP - 12/16/2024 3:24 AM EDT Images [...] DM, osteoarthritis, and anxiety/depression who presents to [facility] on 12/15/2024 with worsening dyspnea and hypoxia [...] from 11/29/2024 to 12/10/2024 after presenting from [facility] to the ED with concern for seizure, [...] Value Units Date/Time Blood Culture (Aerobic/Anaerobet Set) [[id number]] Collected: 12/15/24 2318 Order Status: Completed Specimen: Blood, Venous Updated: 12/16/24 0301 Culture Culture in lab Nasopharyngeal Respiratory Panel [[id number]] (Normal) Collected: 12/15/242318 Order Status: Completed Specimen: [...] Respiratory PCR Panel is performed using the Fronto instrument. This test is FDA approved for use with Nasopharyngeal swabs only. This test is used for clinical purposes. It should not be regarded as investigational or for research. The [facility] Clinical [facility] is certified under the Clinical Laboratory Improvement Amendments of 1988 (CLIA-88) as qualified to perform high complexity clinical laboratory testing. SARS CoV-2/COVID-19 by PCR - Rapid [[id number]] (Normal) Collected: 12/15/242318 Order Status: Completed Specimen: [...] testing. This test was performed on the Clifford Thames SARS CoV-2 Plus assay test, a PCR- based method. Negative results should be considered presumptive and do not preclude current or future infection obtained through community transmission or other exposures. Negative results must be considered in the context of an individual's recent exposures, history, presence of clinical signs and symptoms consistent with COVID-19. SARS-CoV-2, Flu A, Flu B, and RSV - Rapid [[id number]] Order Status: Canceled Specimen: Swab from Nasopharynx [...] 2 DM, osteoarthritis, and anxiety/depressionwho presents to [facility] on 12/[facility]/2024 with worsening dyspnea and hypoxia [...] remains unclear # Seizure - Treated with [facility] inpatient, no refill history on discharge Chronic [...] mg, Oral, Every 6 hours scheduled, Under [facility] law, monthly prescriptions (30 days) can be refilled at 25 days and three-month prescriptions (90 days) at 80 days. Please contact the insurance company with questions if refills are denied. atorvastatin (LIPITOR) 40 mg, Every evening Quwrnhg-Ybxncqaspsn-Pcawfmqkhc (Breztri Aerosphere) 160-9-4.8 MCG/ACT aerosol 2 puffs, [...] 399=12units max of 36units daily nystatin (Mycostatin) 150428 UNIT/GM powder Apply on bottom 2 times [...] Time Provider Department Center 12/20/2024 10:30 AM [facility] JOSE MARTIN Vasquez 12/20/2024 11:00 AM Satnam Colvin MD [facility] 12/20/2024 12:30 PM [facility] 12/21/2024 2:30 PM [facility] 1 INFUSION TREATMENT [id number] [facility] 12/22/2024 2:30 PM [facility] 2 INFUSION TREATMENT [id number] [facility] 01/19/2025 9:20 AM GS MR 2 [facility] 01/19/2025 10:45 AM Abhilash Bangura MD [facility] 03/08/2025 1:00 PM Teresita Oconnell MD [facility] Gordy Purvis APRN, VINCENZO [1] Past Medical History: Diagnosis Date A-fib (CMS/HCC) Anxiety Brain tumor (CMS/HCC) Chemotherapy-induced nausea and vomiting 08/28/2023 COPD (chronic obstructive pulmonary disease) (CMS/HCC) Depression Heart failure Hyperlipidemia Hypertension Osteoarthritis Pneumonia Small cell lung cancer (CMS/HCC) Type 2 diabetes mellitus [2] Past Surgical History: Procedure Laterality Date BRAIN SURGERY TUBAL LIGATION N/A Tubal Ligation from [employer] TYMPANOSTOMY TUBE PLACEMENT N/A Ear Surgery Eustachian Tube from [employer] [3] Family History Problem Relation Name Age [...] MD Resident Physician, PGY-2 [facility] [1] No current facility-administered medications for this encounter. Current Outpatient Medications Medication Sig Dispense Refill acetaminophen (Tylenol) 325 MG tablet Take 2 tablets by mouth every 6 hours. Under [place] law, monthly prescriptions (30 days) can be refilled at 25 days and three-month prescriptions (90 days) at 80 days. Please contact the insurance company with questions if refills are denied. (Patient taking differently: Take 2 tablets by mouth every 6 hours.) 100 tablet 0 atorvastatin (Lipitor) 40 MG tablet Take 1 tablet by mouth every evening. Bhfibar-Ocwhnhhmkbq-Qbxhmfdrpe (Breztri Aerosphere) 160-9-4.8 MCG/ACT aerosol Inhale 2 [...] 399=12units max of 36units daily nystatin (Mycostatin) 677439 UNIT/GM powder Apply on bottom 2 times [...] bleeding at surgical sites. Acknowledged JIMMY JONES Leticia 12/16/24 0450 Daily weights Daily Acknowledged MADUHAI GORDY N 12/16/24 0450 Telemetry Monitoring for [...] 0450 Multi Drug Resistance Test Once Acknowledged MADUDONNYBEYA, GORDY N 12/16/24 0450 Admit to inpatient Once Acknowledged HYUN, GORDY N 12/16/24 0436 Sedimentation Rate, Automated [...] ECG Adult Once Preliminary result GORDY PURVIS Imelda 12/16/24 0426 MR Head w and [...] Acknowledged BPA, INSTANT ORDERS 12/15/24 234 Initiate eye protection Continuous Comments: Added via Instant Order OPA Acknowledged BPA, INSTANT ORDERS 12/15/24 234 Initiate contact isolation Continuous Comments: [...] of 95beats per minute, left axis, no MO prolongation, narrow QRS, no QTC prolongation. There is incomplete right bundle-branch block morphology. No ST elevation or depression. There are intermittent PACs. Initial EKG was personally interpreted by me and demonstrated normal sinus rhythm with a rate of 95beats per minute, left axis, no MO prolongation, narrow QRS, no QTC prolongation. There [...] None Disposition Admit Admitting/Attending Physician: DESI POP [[id number]] Provider Care Team: LEONA YU 6 [[id number]] [...] SURGERY TUBAL LIGATION N/A Tubal Ligation from [employer] TYMPANOSTOMY TUBE PLACEMENT N/A Ear Surgery Eustachian Tube from [employer] [3] Family History Problem Relation Name Age [...] PM EDT Office Visit [facility] [address] [place] [address] Lia Barnes, [employer] DEVELOPER [address] [facility] [address] [place] [address] 01/10/2025 9:00 AM EDT Clinical Support [facility] [address] [facility], 2nd [place] [address] 01/10/2025 9:40 AM EDT Office Visit [facility] [address] [facility], 2nd [place] [address] Satnam Colvin MD 800 [facility] [address] [place] [address] 01/10/2025 12:00 PM EDT Appointment [facility] 1 [address] [place] [address] 01/11/2025 3:30 PM EDT Appointment [facility] 1 [address] [place] [address] 01/12/2025 3:30 PM EDT Appointment [facility] 2 [address] [place] [address] 01/19/2025 9:20 AM EDT Appointment [facility] S Radiology [address], 1st [place] [id number] 01/19/2025 10:45 AM EDT Office Visit [facility] [address], 1[address] [place] [address] Abhilash Bangura MD [address] [place] [address] 01/26/2025 4:30 PM EDT Office Visit [facility] [address] [place] [address] Lia Barnes, [employer] DEVELOPER [address] [facility] [address] [place] [address] 03/08/2025 1:00 PM EDT Office Visit [facility] [address] [place] [address] Teresita Oconnell MD [address] [place] [address] Pending Results Name Type Priority [...] 12/16/2024 1:5 8 PM EDT Incisional infection MO DEBRIDEMENT, SKIN, SUB-Q TISSUE,MUSCLE,=<20 SQ CM 12/16/2024 [...] POCT glucose meter (12/22/2024 12:43 PM EDT) [facility] POCT Glucose 189(H) 74 - 99 mg/dL 12/22/2024 12:45 PM EDT [facility] Comment:Accuracy of a glucos e result [...] Comment 12/22/2024 12:45 PM EDT [facility] Car Packer ID Marciano Mai 12/22/2024 12:45 PM EDT [facility]ARE LAB Device ID [id number] 12/22/2024 12:45 PM EDT [facility] Specimen Type POC Capillary 12/22/2024 12:45 PM EDT [facility] Blood Capillary blood specimen / Unknown 12/22/2024 12:43 PM EDT 12/22/2024 12:45 PM EDT us Yosi Richmond MD LAB POINT OF CARE T EST DOCKED DEVICE UNSOLICITED RESULTS Final Result Performing Organization Address City/State/[facility] Co de Phone Number [facility]ARE LAB [address] [place] [address] * (ABNORMAL) POCT glucose meter (12/22/2024 8:11 [...] Comment 12/22/2024 8:13 AM EDT [facility]ALTH[facility]ARE LAB Car Packer ID Marciano Mai 12/22/2024 8:13 AM EDT HEALTHCARE LAB Device ID [id number] 12/22/2024 8:13 AM EDT [facility]ARE [facility] Specimen Type POC Capillary 12/22/2024 8:13 AM EDT [facility] Blood Capillary blood specimen / Unknown 12/22/2024 8:11 AM EDT 12/22/2024 8:13 AM EDT us Yosi Richmond MD LAB POINT OF CARE T EST DOCKED DEVICE UNSOLICITED RESULTS Final Result [facility] [address] [place] [address] * (ABNORMAL) Magnesium (12/22/2024 12:26 AM EDT) [facility] Magnesium, Plasma 1.1(L) 1.9 - 2.4 mg/dL 12/22/2024 1:04 AM EDT [facility] Blood Venous blood specimen / Unknown Venipuncture / Unknown 12/22/2024 12:26 AM EDT 12/22/2024 12:35 AM EDT us Yosi Richmond MD LAB BLOOD ORDERABLES Final Result [facility] [address] [place] [address] * (ABNORMAL) CBC W/O Differential (12/22/2024 12:26 AM EDT) [facility] WBC Count 5.98 3.70 - 10.30 10*3/uL LAB HEMATOLOGY METHOD 12/22/2024 12:43 AM EDT [facility] RBC Count 2.50(L) 3.90 - 5.20 10*6/uL LAB HEMATOLOGY METHOD 12/22/2024 12:43 AM EDT [facility] HGB 7.3(L) 11.2 - 15.7 g/dL LAB HEMATOLOGY METHOD 12/22/2024 12:43 AM EDT [facility] HCT 23.7(L) 34.0 - 45.0 % LAB HEMATOLOGY METHOD 12/22/2024 12:43 AM EDT [facility] Platelet Count 152(L) 155 - 369 10*3/uL LAB HEMATOLOGY METHOD 12/22/2024 12:43 AM EDT [facility] MCV 95 79 - 98 fL LAB HEMATOLOGY METHOD 12/22/2024 12:43 AM EDT [facility] MCH 29.2 26.0 - 32.0 pg LAB HEMATOLOGY METHOD 12/22/2024 12:43 AM EDT [facility] MCHC 30.8 30.7 - 35.5 g/dL LAB HEMATOLOGY METHOD 12/22/2024 12:43 AM EDT [facility] RDW 19.8(H) 11.5 - 14.5 % LAB HEMATOLOGY METHOD 12/22/2024 12:43 AM EDT [facility] MPV 9.7 8.8 - 12.5 fL LAB HEMATOLOGY METHOD 12/22/2024 12:43 AM EDT [facility] nRBC 0.0 <=0.0 per 100 WBCs LAB HEMATOLOGY METHOD 12/22/2024 12:43 AM EDT [facility] Blood Venous blood specimen / Unknown Venipuncture / Unknown 12/22/2024 12:26 AM EDT 12/22/2024 12:36 AM EDT us Yosi Richmond MD LAB BLOOD ORDERABLES Final Result [facility] [address] [place] [address] * (ABNORMAL) Basic metabolic panel (12/22/2024 12:26 AM EDT) Glucose, Plasma 160(H) 74 - 99 mg/dL 12/22/2024 1:04 AM EDT [facility] BUN, Plasma 7(L) 8 - 23 mg/dL 12/22/2024 1:04 AM EDT [facility] Creatinine, Plasma 0.96 0.60 - 1.10 mg/dL 12/22/2024 1:04 AM EDT [facility] BUN/Creatinine Ratio 7 12/22/2024 1:04 AM EDT [facility] Sodium, Plasma 144 136 - 145 mmol/L 12/22/2024 1:04 AM EDT [facility] Potassium, Plasma 3.0(L) 3.6 - 4.9 mmol/L 12/22/2024 1:04 AM EDT [facility] Chloride, Plasma 110(H) 97 - 107 mmol/L 12/22/2024 1:04 AM EDT [facility] CO2, Plasma 24 22 - 29 mmol/L 12/22/2024 1:04 AM EDT [facility] Anion Gap 10 6 - 16 mmol/L 12/22/2024 1:04 AM EDT [facility] Total Calcium, Plasma 8.3(L) 8.9 - 10.2 mg/dL 12/22/2024 1:04 AM EDT [facility] eGFRcr 66.2 mL/min/1.7 3m*2 12/22/2024 1:04 AM EDT [facility] Comment:Reported eGFRcr in m L/min/1.73m2 is based the CKD-EPI 2020 equation that does not use a race coefficient. Blood Venous blood specimen / Unknown Venipuncture / Unknown 12/22/2024 12:26 AM EDT 12/22/2024 12:35 AM EDT us Yosi Richmond MD LAB BLOOD ORDERABLES Final Result [facility] [address] [place] [address] * (ABNORMAL) POCT glucose meter (12/21/2024 9:17 PM EDT) [facility] POCT Glucose 180(H) 74 - 99 mg/dL [...] Comment 12/21/2024 9:18 PM EDT [facility]ALTH[facility]ARE [facility] Car Packer ID Anh Rankin 12/21/2024 9:18 PM EDT [facility]ARE LAB Device ID [id number] 12/21/2024 9:18 PM EDT [facility] Specimen Type POC Capillary 12/21/2024 9:18 PM EDT [facility] Blood Capillary blood specimen / Unknown 12/21/2024 9:17 PM EDT 12/21/2024 9:18 PM EDT us Yosi Richmond MD LAB POINT OF CARE T EST DOCKED DEVICE UNSOLICITED RESULTS Final Result Performing Organization Address City/[facility]/ZIP Co de Phone Number [facility] [address] [place] [address] * (ABNORMAL) POCT glucose meter (12/21/2024 5:44 PM EDT) [facility] POCT Glucose 142(H) 74 - 99 mg/dL [...] Comment 12/21/2024 5:46 PM EDT HEALTH[facility]ARE LAB Car Packer ID Marciano Mai 12/21/2024 5:46 PM EDT [facility] Device ID [id number] 12/21/2024 5:46 PM EDT [facility] Specimen Type POC Capillary 12/21/2024 5:46 PM EDT [facility] Blood Capillary blood specimen / Unknown 12/21/2024 5:44 PM EDT 12/21/2024 5:46 PM EDT Yosi Richmond MD LAB POINT OF CARE T EST DOCKED DEVICE UNSOLICITED RESULTS Final Result Performing Organization Address City/[facility]/ZIP Co de Phone Number [facility] [address] [place] [address] * (ABNORMAL) POCT glucose meter (12/21/2024 12:11 PM EDT) [facility] POCT Glucose 151(H) 74 - 99 mg/dL [...] Comment 12/21/2024 12:14 PM EDT HEALTHCARE LAB Car Packer ID Emily Vera [id number] 12:14 PM EDT HEALTHCARE LAB Device ID [id number] 12/21/2024 12:14 PM EDT [facility] Specimen Type POC Capillary 12/21/2024 12:14 PM EDT [facility] Blood Capillary blood specimen / Unknown 12/21/2024 12:11 PM EDT 12/21/2024 12:14 PM EDT us Yosi Richmond MD LAB POINT OF CARE T EST DOCKED DEVICE UNSOLICITED RESULTS Final Result Performing Organization Address City/[facility] Co de Phone Number [facility] [address] [place] [address] * (ABNORMAL) POCT glucose meter (12/21/2024 8:04 AM EDT) [facility] POCT Glucose 138(H) 74 - 99 mg/dL [...] for testing. Comment 12/21/2024 8:05 AM EDT [facility] Car Packer ID Marciano Mai 12/21/2024 8:05 AM EDT [facility]ARE LAB Device ID [id number] 12/21/2024 8:05 AM EDT [facility] Specimen Type POC Capillary 12/21/2024 8:05 AM EDT [facility] Blood Capillary blood specimen / Unknown 12/21/2024 8:04 AM EDT 12/21/2024 8:05 AM EDT us Yosi Richmond MD LAB POINT OF CARE T EST DOCKED DEVICE UNSOLICITED RESULTS Final Result Performing Organization Address City/[facility] Co de Phone Number [facility] [address] [place] [address] * Anti Xa Level by Unfractionated Heparin - Heparin Drip Titration (12/21/2024 7:30 AM EDT) Anti Xa Level Unfractionated Heparin 0.56 <1.00 IU/mL LAB COAGULATION METHOD 12/21/2024 8:08 AM EDT [facility] Blood Venous blood specimen / Unknown Venipuncture / Unknown 12/21/2024 7:30 AM EDT 12/21/2024 7:38 AM EDT [facility] - 12/21/2024 8:08 AM EDT Therapeutic Range: UFH Full Dose and ACS/IN protocols*: 0.30 - 0.70 IU/mL UFH Low Dose protocol*: 0.25 - 0.50 IU/mL UFH prophylaxis: Not established us Ailyn Cabrera MD LAB BLOOD ORDERABLES Final Re sult [facility] [address] [place] [address] * (ABNORMAL) CBC W/O Differential - HIT surveillance (12/21/2024 1:04 AM EDT) WBC Count 5.76 3.70 - 10.30 10*3/uL LAB HEMATOLOGY METHOD 12/21/2024 1:20 AM EDT [facility] RBC Count 2.41(L) 3.90 - 5.20 10*6/uL LAB HEMATOLOGY METHOD 12/21/2024 1:20 AM EDT [facility] HGB 7.3(L) 11.2 - 15.7 g/dL LAB HEMATOLOGY METHOD 12/21/2024 1:20 AM EDT [facility] HCT 23.2(L) 34.0 - 45.0 % LAB HEMATOLOGY METHOD 12/21/2024 1:20 AM EDT [facility] Platelet Count 149(L) 155 - 369 10*3/uL LAB HEMATOLOGY METHOD 12/21/2024 1:20 AM EDT [facility] MCV 96 79 - 98 fL LAB HEMATOLOGY METHOD 12/21/2024 1:20 AM EDT [facility] MCH 30.3 26.0 - 32.0 pg LAB HEMATOLOGY METHOD 12/21/2024 1:20 AM EDT [facility] MCHC 31.5 30.7 - 35.5 g/dL LAB HEMATOLOGY METHOD 12/21/2024 1:20 AM EDT [facility] RDW 19.4(H) 11.5 - 14.5 % LAB HEMATOLOGY METHOD 12/21/2024 1:20 AM EDT [facility] MPV 9.4 8.8 - 12.5 fL LAB HEMATOLOGY METHOD 12/21/2024 1:20 AM EDT [facility] nRBC 0.0 <=0.0 per 100 WBCs LAB HEMATOLOGY METHOD 12/21/2024 1:20 AM EDT [facility] Blood Venous blood specimen / Unknown Venipuncture / Unknown 12/21/2024 1:04 AM EDT 12/21/2024 1:13 AM EDT Ailyn Cabrera MD LAB BLOOD ORDERABLES Final Re sult Performing Organization Address [facility] Co de Phone Number [facility] [address] [place] [address] * Anti Xa Level by Unfractionated Heparin - Heparin Drip Titration (12/21/2024 1:04 AM EDT) Anti Xa Level Unfractionated Heparin 0.23 <1.00 IU/mL LAB COAGULATION METHOD 12/21/2024 1:34 AM EDT [facility] Blood Venous blood specimen / Unknown Venipuncture / Unknown 12/21/2024 1:04 AM EDT 12/21/2024 1:13 AM EDT Narrative [facility] - 12/21/2024 1:34 AM EDT Therapeutic Range: UFH Full Dose and ACS/IN protocols*: 0.30 - 0.70 IU/mL UFH Low Dose protocol*: 0.25 - 0.50 IU/mL UFH prophylaxis: Not established us Ailyn Cabrera MD LAB BLOOD ORDERABLES Final Re sult Performing Organization Address [facility]/ZIP Co de Phone Number [facility] [address] [place] [address] * (ABNORMAL) POCT glucose meter (12/20/2024 7:55 [...] Comment 12/20/2024 7:57 PM EDT HEALTHCARE LAB Car Packer ID Hany Deutsch 12/20/2024 7:57 PM EDT HEALTH[facility]ARE LAB Device ID [id number] 12/20/2024 7:57 PM EDT [facility] Specimen Type POC Capillary 12/20/2024 7:57 PM EDT [facility] Blood Capillary blood specimen / Unknown 12/20/2024 7:55 PM EDT 12/20/2024 7:57 PM EDT Yosi Richmond MD LAB POINT OF CARE T EST DOCKED DEVICE UNSOLICITED RESULTS Final Result Performing Organization Address City/State/[facility] Co de Phone Number [facility]ARE [facility] [address] [place] [address] * (ABNORMAL) POCT glucose meter (12/20/2024 5:12 PM EDT) [facility] POCT Glucose 234(H) 74 - 99 mg/dL [...] Comment 12/20/2024 5:14 PM EDT HEALTHCARE LAB Car Packer ID Daphnie Perez 12/21/19 5:14 PM EDT HEALTHCARE LAB Device ID [id number] 12/20/2024 5:14 PM EDT [facility]ARE LAB Specimen Type POC Capillary 12/20/2024 5:14 PM EDT [facility] Blood Capillary blood specimen / Unknown 12/20/2024 5:12 PM EDT 12/20/2024 5:14 PM EDT Yosi Richmond MD LAB POINT OF CARE T EST DOCKED DEVICE UNSOLICITED RESULTS Final Result Performing Organization Address [facility] Co de Phone Number [facility] [address] [place] [address] * (ABNORMAL) POCT glucose meter (12/20/2024 12:47 [...] for testing. Comment 12/20/2024 12:48 PM EDT [facility] Car Packer ID Marciano Mai 12/20/2024 12:48 PM EDT [facility] Device ID [id number] 12/20/2024 12:48 PM EDT [facility] Specimen Type POC Capillary 12/20/2024 12:48 PM EDT [facility] Blood Capillary blood specimen / Unknown 12/20/2024 12:47 PM EDT 12/20/2024 12:48 PM EDT Yosi Richmond MD LAB POINT OF CARE T EST DOCKED DEVICE UNSOLICITED RESULTS Final Result Performing Organization Address City/[facility] Co de Phone Number [facility] [address] [place] [address] * (ABNORMAL) POCT glucose meter (12/20/2024 7:46 AM EDT) Pathologist [facility] POCT Glucose [...] Comment 12/20/2024 7:47 AM EDT HEALTHCARE LAB Car Packer ID Marciano Mai 12/20/2024 7:47 AM EDT HEALTH[facility]ARE LAB Device ID [id number] 12/20/2024 7:47 AM EDT [facility]ALTH[facility]ARE LAB Specimen Type POC Capillary 12/20/2024 7:47 AM EDT [facility] Blood Capillary blood specimen / Unknown 12/20/2024 7:46 AM EDT 12/20/2024 7:47 AM EDT us Yosi Richmond MD LAB POINT OF CARE T EST DOCKED DEVICE UNSOLICITED RESULTS Final Result Performing Organization Address [facility] de Phone Number [facility] [address] [place] [address] * Anti Xa Level by Unfractionated Heparin - Heparin Drip Titration (12/20/2024 2:20 AM EDT) Anti Xa Level Unfractionated Heparin 0.29 <1.00 IU/mL LAB COAGULATION METHOD 12/20/2024 2:52 AM EDT [facility] Blood Venous blood specimen / Unknown Venipuncture / Unknown 12/20/2024 2:20 AM EDT 12/20/2024 2:31 AM EDT Narrative [facility] - 12/20/2024 2:52 AM EDT Therapeutic Range: UFH Full Dose and ACS/IN protocols*: 0.30 - 0.70 IU/mL UFH Low Dose protocol*: 0.25 - 0.50 IU/mL UFH prophylaxis: Not established us Ailyn Cabrera MD LAB BLOOD ORDERABLES Final Re sult Performing Organization Address City/[facility]/ZIP Co de Phone Number [facility] [address] [place] [address] * (ABNORMAL) CBC W/O Differential - HIT surveillance (12/20/2024 2:20 AM EDT) WBC Count 5.86 3.70 - 10.30 10*3/uL LAB HEMATOLOGY METHOD 12/20/2024 2:49 AM EDT [facility] RBC Count 2.42(L) 3.90 - 5.20 10*6/uL LAB HEMATOLOGY METHOD 12/20/2024 2:49 AM EDT [facility] HGB 7.3(L) 11.2 - 15.7 g/dL LAB HEMATOLOGY METHOD 12/20/2024 2:49 AM EDT [facility] HCT 23.4(L) 34.0 - 45.0 % LAB HEMATOLOGY METHOD 12/20/2024 2:49 AM EDT [facility] Platelet Count 166 155 - 369 10*3/uL LAB HEMATOLOGY METHOD 12/20/2024 2:49 AM EDT [facility] MCV 97 79 - 98 fL LAB HEMATOLOGY METHOD 12/20/2024 2:49 AM EDT [facility] MCH 30.2 26.0 - 32.0 pg LAB HEMATOLOGY METHOD 12/20/2024 2:49 AM EDT [facility] MCHC 31.2 30.7 - 35.5 g/dL LAB HEMATOLOGY METHOD 12/20/2024 2:49 AM EDT [facility] RDW 19.6(H) 11.5 - 14.5 % LAB HEMATOLOGY METHOD 12/20/2024 2:49 AM EDT [facility] MPV 9.9 8.8 - 12.5 fL LAB HEMATOLOGY METHOD 12/20/2024 2:49 AM EDT [facility] nRBC 0.0 <=0.0 per 100 WBCs LAB HEMATOLOGY METHOD 12/20/2024 2:49 AM EDT [facility] Blood Venous blood specimen / Unknown Venipuncture / Unknown 12/20/2024 2:20 AM EDT 12/20/2024 2:31 AM EDT us Ailyn Cabrera MD LAB BLOOD ORDERABLES Final Re sult [facility] [address] [place] [address] * Phosphorus, Plasma (12/20/2024 2:20 AM EDT) Phosphorus, Plasma 3.3 2.5 - 4.5 mg/dL 12/20/2024 3:00 AM EDT [facility] Blood Venous blood specimen / Unknown Venipuncture / Unknown 12/20/2024 2:20 AM EDT 12/20/2024 2:31 AM EDT [facility] LAB BLOOD ORDERABLES Final Resu lt Performing Organization Address [facility] de Phone Number [facility] [address] [place] [address] * (ABNORMAL) Magnesium, Plasma (12/20/2024 2:20 AM EDT) Magnesium, Plasma 1.6(L) 1.9 - 2.4 mg/dL 12/20/2024 3:00 AM EDT [facility] Blood Venous blood specimen / Unknown Venipuncture / Unknown 12/20/2024 2:20 AM EDT 12/20/2024 2:31 AM EDT [facility] LAB BLOOD ORDERABLES Final Resu lt Performing Organization Address [facility] de Phone Number [facility] [address] [place] [address] * (ABNORMAL) Comprehensive Metabolic Panel, Plasma (12/20/2024 2:20 AM EDT) Glucose, Plasma 120(H) 74 - 99 mg/dL 12/20/2024 3:00 AM EDT [facility] BUN, Plasma 7(L) 8 - 23 mg/dL 12/20/2024 3:00 AM EDT [facility] Creatinine, Plasma 0.90 0.60 - 1.10 mg/dL 12/20/2024 3:00 AM EDT [facility] BUN/Creatinine Ratio 8 12/20/2024 3:00 AM EDT [facility] Sodium, Plasma 145 136 - 145 mmol/L 12/20/2024 3:00 AM EDT [facility] Potassium, Plasma 3.4(L) 3.6 - 4.9 mmol/L 12/20/2024 3:00 AM EDT [facility] Chloride, Plasma 112(H) 97 - 107 mmol/L 12/20/2024 3:00 AM EDT [facility] CO2, Plasma 23 22 - 29 mmol/L 12/20/2024 3:00 AM EDT [facility] Anion Gap 10 6 - 16 mmol/L 12/20/2024 3:00 AM EDT [facility] Total Calcium, Plasma 8.5(L) 8.9 - 10.2 mg/dL 12/20/2024 3:00 AM EDT [facility] Total Protein 6.0(L) 6.3 - 7.9 g/dL 12/20/2024 3:00 AM EDT [facility] Albumin, Plasma 2.7(L) 3.5 - 5.2 g/dL 12/20/2024 3:00 AM EDT [facility] AST, Plasma 17 10 - 35 U/L 12/20/2024 3:00 AM EDT [facility] ALT, Plasma 6(L) 10 - 35 U/L 12/20/2024 3:00 AM EDT [facility] Alkaline Phosphatase, Plasma 67 46 - 142 U/L 12/20/2024 3:00 AM EDT [facility] Total Bilirubin, Plasma 0.3 0.2 - 1.1 mg/dL 12/20/2024 3:00 AM EDT [facility] eGFRcr 71.5 mL/min/1.7 3m*2 12/20/2024 3:00 AM EDT [facility] Comment:Reported eGFRcr in m L/min/1.73m2 is based the CKD-EPI 2020 equation that does not use a race coefficient. Blood Venous blood specimen / Unknown Venipuncture / Unknown 12/20/2024 2:20 AM EDT 12/20/2024 2:31 AM EDT us Lisa Lloyd DO LAB BLOOD ORDERABLES Final Resu lt [facility] [address] [place] [address] * Anti Xa Level by Unfractionated Heparin - Heparin Drip Titration (12/19/2024 10:29 PM EDT) Anti Xa Level Unfractionated Heparin 0.39 <1.00 IU/mL LAB COAGULATION METHOD 12/19/2024 11:32 PM EDT [facility] Blood Venous blood specimen / Unknown Venipuncture / Unknown 12/19/2024 10:29 PM EDT 12/19/2024 10:54 PM EDT Narrative [facility] - 12/19/2024 11:32 PM EDT Therapeutic Range: UFH Full Dose and ACS/IN protocols*: 0.30 - 0.70 IU/mL UFH Low Dose protocol*: 0.25 - 0.50 IU/mL UFH prophylaxis: Not established us Ailyn Cabrera MD LAB BLOOD ORDERABLES Final Re sult [facility] [address] [place] [address] * (ABNORMAL) POCT glucose meter (12/19/2024 8:18 [...] 12/19/2024 8:20 PM EDT [facility] Car Packer ID Sujatha Medrano 12/19/2024 8:20 PM EDT [facility] Device ID [id number] 12/19/2024 8:20 PM EDT [facility] LAB Specimen Type POC Capillary 12/19/2024 8:20 PM EDT [facility] Blood Capillary blood specimen / Unknown 12/19/2024 8:18 PM EDT 12/19/2024 8:20 PM EDT us Lisa Og Gabino DO LAB POINT OF CARE TE ST DOCKED DEVICE UNSOLICITED RESULTS Final Result [facility] [address] [place] [address] * (ABNORMAL) POCT glucose meter (12/19/2024 5:09 PM EDT) POCT Glucose 118(H) 74 - 99 mg/dL 12/19/2024 5:10 PM EDT [facility] Comment:Accuracy of a [...] for testing. Comment 12/19/2024 5:10 PM EDT [facility] Car Packer ID Marciano Mai 12/19/2024 5:10 PM EDT HEALTHCARE LAB Device ID [id number] 12/19/2024 5:10 PM EDT [facility] Specimen Type POC Capillary 12/19/2024 5:10 PM EDT [facility] Blood Capillary blood specimen / Unknown 12/19/2024 5:09 PM EDT 12/19/2024 5:10 PM EDT Lisa Loras DO LAB POINT OF CARE TE ST DOCKED DEVICE UNSOLICITED RESULTS Final Result Performing Organization Address City/[facility]/ZIP Co de Phone Number [facility] [address] [place] [address] * Anti Xa Level by Unfractionated Heparin - Heparin Drip Titration (12/19/2024 3:33 PM EDT) Anti Xa Level Unfractionated Heparin <0.11 <1.00 IU/mL LAB COAGULATION METHOD 12/19/2024 4:24 PM EDT [facility] Blood Venous blood specimen / Unknown Venipuncture / Unknown 12/19/2024 3:33 PM EDT 12/19/2024 4:05 PM EDT Narrative [facility] - 12/19/2024 4:24 PM EDT Therapeutic Range: UFH Full Dose and ACS/IN protocols*: 0.30 - 0.70 IU/mL UFH Low Dose protocol*: 0.25 - 0.50 IU/mL UFH prophylaxis: Not established us Ailyn Cabrera MD LAB BLOOD ORDERABLES Final Re sult Performing Organization Address City/[facility]/ZIP Co de Phone Number [facility] [address] [place] [address] * (ABNORMAL) POCT glucose meter (12/19/2024 11:58 [...] for testing. Comment 12/19/2024 11:59 AM EDT [facility] Car Packer ID Marciano Mai 12/19/2024 11:59 AM EDT [facility] Device ID [id number] 12/19/2024 11:59 AM EDT [facility] Specimen Type POC Capillary 12/19/2024 11:59 AM EDT [facility] Blood Capillary blood specimen / Unknown 12/19/2024 11:58 AM EDT 12/19/2024 11:59 AM EDT us Lisa Lloyd DO LAB POINT OF CARE TE ST DOCKED DEVICE UNSOLICITED RESULTS Final Result Performing Organization Address City/[facility]/ZIP Co de Phone Number [facility] [address] [place] [address] * (ABNORMAL) POCT glucose meter (12/19/2024 8:09 [...] Comment 12/19/2024 8:11 AM EDT [facility] Car Packer ID Marciano Mai 12/19/2024 8:11 AM EDT [facility] Device ID [id number] 12/19/2024 8:11 AM EDT [facility] Specimen Type POC Capillary 12/19/2024 8:11 AM EDT [facility] Blood Capillary blood specimen / Unknown 12/19/2024 8:09 AM EDT 12/19/2024 8:11 AM EDT Lisa Lloyd DO LAB POINT OF CARE TE ST DOCKED DEVICE UNSOLICITED RESULTS Final Result Performing Organization Address [facility] de Phone Number [facility] [address] [place] [address] * (ABNORMAL) Anti Xa Level by Unfractionated Heparin - Heparin Drip Titration (12/19/2024 6:19 AM EDT) Anti Xa Level Unfractionated Heparin >1.10(HH ) <1.00 IU/mL LAB COAGULATION METHOD 12/19/2024 6:48 AM EDT [facility] Blood Venous blood specimen / Unknown Venipuncture / Unknown 12/19/2024 6:19 AM EDT 12/19/2024 6:28 AM EDT Narrative [facility] - 12/19/2024 6:48 AM EDT Therapeutic Range: UFH Full Dose and ACS/IN protocols*: 0.30 - 0.70 IU/mL UFH Low Dose protocol*: 0.25 - 0.50 IU/mL UFH prophylaxis: Not established us Ailyn Cabrera MD LAB BLOOD ORDERABLES Final Re sult Performing Organization Address City/[facility]/ZIP Co de Phone Number [facility] [address] [place] [address] * (ABNORMAL) Magnesium, Plasma (12/19/2024 6:19 AM EDT) Magnesium, Plasma 1.5(L) 1.9 - 2.4 mg/dL 12/19/2024 6:50 AM EDT [facility] Blood Venous blood specimen / Unknown Venipuncture / Unknown 12/19/2024 6:19 AM EDT 12/19/2024 6:28 AM EDT Lisa Lloyd DO LAB BLOOD ORDERABLES Final Resu lt [facility] [address] [place] [address] * (ABNORMAL) CBC W/O Differential - HIT surveillance (12/19/2024 12:25 AM EDT) [facility] WBC Count 8.55 3.70 - 10.30 10*3/uL LAB HEMATOLOGY METHOD 12/19/2024 1:04 AM EDT [facility] RBC Count 2.73(L) 3.90 - 5.20 10*6/uL LAB HEMATOLOGY METHOD 12/19/2024 1:04 AM EDT [facility] HGB 8.0(L) 11.2 - 15.7 g/dL LAB HEMATOLOGY METHOD 12/19/2024 1:04 AM EDT [facility] HCT 25.9(L) 34.0 - 45.0 % LAB HEMATOLOGY METHOD 12/19/2024 1:04 AM EDT [facility] Platelet Count 204 155 - 369 10*3/uL LAB HEMATOLOGY METHOD 12/19/2024 1:04 AM EDT [facility] MCV 95 79 - 98 fL LAB HEMATOLOGY METHOD 12/19/2024 1:04 AM EDT [facility] MCH 29.3 26.0 - 32.0 pg LAB HEMATOLOGY METHOD 12/19/2024 1:04 AM EDT [facility] MCHC 30.9 30.7 - 35.5 g/dL LAB HEMATOLOGY METHOD 12/19/2024 1:04 AM EDT [facility] RDW 19.9(H) 11.5 - 14.5 % LAB HEMATOLOGY METHOD 12/19/2024 1:04 AM EDT [facility] MPV 9.7 8.8 - 12.5 fL LAB HEMATOLOGY METHOD 12/19/2024 1:04 AM EDT [facility] nRBC 0.0 <=0.0 per 100 WBCs LAB HEMATOLOGY METHOD 12/19/2024 1:04 AM EDT [facility] Blood Venous blood specimen / Unknown Venipuncture / Unknown 12/19/2024 12:25 AM EDT 12/19/2024 12:44 AM EDT us Ailyn Cabrera MD LAB BLOOD ORDERABLES Final Re sult Performing Organization Address City/[facility]/ZIP Co de Phone Number [facility] [address] [place] [address] * (ABNORMAL) N-Terminal Probnp (12/19/2024 12:25 AM EDT) N-Terminal, PROBNP, Plasma 2,653(H) 0 - 899 pg/mL 12/19/2024 1:[address] [facility] Blood Venous blood specimen / Unknown Venipuncture / Unknown 12/19/2024 12:25 AM EDT 12/19/2024 12:45 AM EDT Lisa Lloyd DO LAB BLOOD ORDERABLES Final Resu lt Performing Organization Address [facility] [place] [address] * TSH Reflex FT4 (12/19/2024 12:25 AM EDT) Thyroid Stimulating Hormone, Plasma 3.21 0.40 - 4.20 uIU/mL 12/19/2024 1:24 AM EDT [facility] Blood Venous blood specimen / Unknown Venipuncture / Unknown 12/19/2024 12:25 AM EDT 12/19/2024 12:45 AM EDT Lisa Lloyd DO LAB BLOOD ORDERABLES Final Resu lt Performing Organization Address City/[facility]/ZIP Co de Phone Number [facility] [address] [place] [address] * Phosphorus, Plasma (12/19/2024 12:25 AM EDT) Phosphorus, Plasma 3.4 2.5 - 4.5 mg/dL 12/19/2024 1:24 AM EDT [facility] Blood Venous blood specimen / Unknown Venipuncture / Unknown 12/19/2024 12:25 AM EDT 12/19/2024 12:45 AM EDT [facility] LAB BLOOD ORDERABLES Final Resu lt Performing Organization Address City/[facility]/ZIP Co de Phone Number [facility] [address] [place] [address] * (ABNORMAL) Magnesium, Plasma (12/19/2024 12:25 AM EDT) Magnesium, Plasma 1.7(L) 1.9 - 2.4 mg/dL 12/19/2024 1:24 AM EDT [facility] Blood Venous blood specimen / Unknown Venipuncture / Unknown 12/19/2024 12:25 AM EDT 12/19/2024 12:45 AM EDT Lisa Battlepro LAB BLOOD ORDERABLES Final Resu lt Performing Organization Address City/[facility]/ZIP Co de Phone Number [facility] [address] [place] [address] * (ABNORMAL) Comprehensive Metabolic Panel, Plasma (12/19/2024 12:25 AM EDT) Glucose, Plasma 152(H) 74 - 99 mg/dL 12/19/2024 1:24 AM EDT [facility] BUN, Plasma 7(L) 8 - 23 mg/dL 12/19/2024 1:24 AM EDT [facility] Creatinine, Plasma 0.96 0.60 - 1.10 mg/dL 12/19/2024 1:24 AM EDT [facility] BUN/Creatinine Ratio 7 12/19/2024 1:24 AM EDT [facility] Sodium, Plasma 143 136 - 145 mmol/L 12/19/2024 1:24 AM EDT [facility] Potassium, Plasma 3.4(L) 3.6 - 4.9 mmol/L 12/19/2024 1:24 AM EDT [facility] Chloride, Plasma 105 97 - 107 mmol/L 12/19/2024 1:24 AM EDT [facility] CO2, Plasma 25 22 - 29 mmol/L 12/19/2024 1:24 AM EDT [facility] Anion Gap 13 6 - 16 mmol/L 12/19/2024 1:24 AM EDT [facility] Total Calcium, Plasma 9.0 8.9 - 10.2 mg/dL 12/19/2024 1:24 AM EDT [facility] Total Protein 6.5 6.3 - 7.9 g/dL 12/19/2024 1:24 AM EDT [facility] Albumin, Plasma 3.2(L) 3.5 - 5.2 g/dL 12/19/2024 1:24 AM EDT [facility] AST, Plasma 16 10 - 35 U/L 12/19/2024 1:24 AM EDT [facility] ALT, Plasma 11 10 - 35 U/L 12/19/2024 1:24 AM EDT [facility] Alkaline Phosphatase, Plasma 76 46 - 142 U/L 12/19/2024 1:24 AM EDT [facility] Total Bilirubin, Plasma 0.4 0.2 - 1.1 mg/dL 12/19/2024 1:24 AM EDT [facility] eGFRcr 66.2 mL/min/1.7 3m*2 12/19/2024 1:24 AM EDT [facility] Comment:Reported eGFRcr in m L/min/1.73m2 is based the CKD-EPI 2020 equation that does not use a race coefficient. Blood Venous blood specimen / Unknown Venipuncture / Unknown 12/19/2024 12:25 AM EDT 12/19/2024 12:45 AM EDT us Lisa Lloyd DO LAB BLOOD ORDERABLES Final Resu lt [facility] [address] [place] [address] * PICC DOUBLE LUMEN (SMARTFORM LINK) (12/18/2024 11:40 PM EDT) Narrative Brian Dai RN - 12/18/2024 11:40 PM EDT Brian Dai RN 12/19/2024 1:05 AM Insert PICC line Performed by: Brian Dai RN Authorized by: Lisa Lloyd DO [place] Protocol: Verbal consent obtained?: Yes Written consent [...] Left Location (Adult): Basilic vein (Largest vein, [id number] ratio 18%.) Site selection rationale: Infiltration from PIV in [facility]. Patient position: Supine Catheter Lot #: [id number] Catheter ops manager: Bard Power PICC Provena Catheter with Solo Valve Catheter placed: Double lumen Catheter size: 4 Fr Catheter trimmed length: 48 Catheter threaded length: 48 Vein placed in: SVC Catheter cm indwellin Catheter cm outside: 0 Placement confirmed by: Consignd 3CG technology Pre-procedure: Landmarks identified Ultrasound guidance: [...] okay to use order will be placed. [place] limb precaution armband placed on left wrist [...] 12/18/2024 7:29 PM EDT [facility] Car Packer ID Samina Woods 12/18/2024 7:29 PM EDT [facility] Device ID [id number] 12/18/2024 7:29 PM EDT [facility] Specimen Type POC Capillary 12/18/2024 7:29 PM EDT [facility] Blood Capillary blood specimen / Unknown 12/18/2024 7:27 PM EDT 12/18/2024 7:29 PM EDT Lisa Lloyd DO LAB POINT OF CARE TE ST DOCKED DEVICE UNSOLICITED RESULTS Final Result [facility] [address] [place] [address] * XR Chest 1 View (12/18/2024 6:26 [...] QTC Interval 477 ms MUSE ECG R Graford 7 degrees MUSE ECG T Wave Graford 26 degrees MUSE ECG Diagnosis Atrial fibrillation with rapid ventricular response MUSE ECG Diagnosis Nonspecific ST and T wave abnormality MUSE ECG Diagnosis Borderline QT interval MUSE ECG Diagnosis Abnormal ECG MUSE ECG Diagnosis MUSE ECG Diagnosis Confirmed by Joey Perkins ([id number]) on 12/19/2024 2:57:40 PM MUSE ECG 12/18/2024 4:47 PM EDT 12/19/2024 2:57 PM EDT Lisa Lloyd DO ECG ORDERABLES Final Result MUSE ECG * (ABNORMAL) POCT glucose meter (12/18/2024 4:39 PM EDT) [facility] POCT Glucose 125(H) 74 - 99 mg/dL [...] 12/18/2024 4:40 PM EDT [facility] Car Packer ID ZaynabMargy 12/18/2024 4:40 PM EDT [facility] Device ID [id number] 12/18/2024 4:40 PM EDT [facility] Specimen Type POC Capillary 12/18/2024 4:40 PM EDT [facility] Blood Capillary blood specimen / Unknown 12/18/2024 4:39 PM EDT 12/18/2024 4:40 PM EDT Lisa Lloyd DO LAB POINT OF CARE TE ST DOCKED DEVICE UNSOLICITED RESULTS Final Result [facility] [address] [place] [address] * Transfuse RBC (12/18/2024 3:42 PM EDT) Lisa C Lloyd DO BLOOD TRANSFUSION ORDERABLES Fi nal [...] semipermeable dressing Education provided to: Patient Lisa Lenka Lloyd DO IV THERAPY ORDERABLES [...] for testing. Comment 12/18/2024 12:01 PM EDT [facility] Car Packer ID ZaynabBrandon nixtaylor 12/18/2024 12:01 PM EDT HEALTHCARE LAB Device ID [id number] 12/18/2024 12:01 PM EDT [facility] Specimen Type POC Capillary 12/18/2024 12:01 PM EDT [facility] Blood Capillary blood specimen / Unknown 12/18/2024 11:59 AM EDT 12/18/2024 12:01 PM EDT Lisa Lloyd DO LAB POINT OF CARE TE ST DOCKED DEVICE UNSOLICITED RESULTS Final Result [facility] [address] [place] [address] * PERIPHERAL IV (SMARTFORM LINK) (12/18/2024 9:58 [...] Units (12/18/2024 9:09 AM EDT) Product Code R3293Y52 CH BLOO D BANK Dispense Status Transfused BLOOD BANK Blood Expiration Date [id number] BLOOD BANK Unit Number [id number] B LOOD BANK Product Blood Type 5100 BLOOD BANK Blood Type O+ BLOOD BANK Crossmatch Compatible BLOOD BANK Other Lisa Lloyd DO BLOOD BANK PRODUCT ORDERABLES F inal Result Performing Organization Address City/[facility]/ZIP Co de Phone Number BLOOD BANK [address] [place] [address], * (ABNORMAL) POCT glucose meter (12/18/2024 7:55 AM EDT) POCT Glucose 155(H) 74 - 99 mg/dL 12/18/2024 7:57 AM EDT [facility] Comment:Accuracy of [...] Comment 12/18/2024 7:57 AM EDT [facility] LAB Car Packer ID ZaynabMargy 12/18/2024 7:57 AM EDT HEALTH[facility]ARE LAB Device ID [id number] 12/18/2024 7:57 AM EDT [facility] Specimen Type POC Capillary 12/18/2024 7:57 AM EDT [facility] Blood Capillary blood specimen / Unknown 12/18/2024 7:55 AM EDT 12/18/2024 7:57 AM EDT Lisa Lloyd DO LAB POINT OF CARE TE ST DOCKED DEVICE UNSOLICITED RESULTS Final Result Performing Organization Address City/State/[facility] Co de Phone Number [facility]ARE LAB [address] [place] [address] * (ABNORMAL) CBC W/O Differential - HIT surveillance (12/18/2024 5:16 AM EDT) WBC Count 7.00 3.70 - 10.30 10*3/uL LAB HEMATOLOGY METHOD 12/18/2024 5:30 AM EDT [facility] RBC Count 2.28(L) 3.90 - 5.20 10*6/uL LAB HEMATOLOGY METHOD 12/18/2024 5:30 AM EDT [facility] HGB 6.9(L) 11.2 - 15.7 g/dL LAB HEMATOLOGY METHOD 12/18/2024 5:30 AM EDT [facility] HCT 22.4(L) 34.0 - 45.0 % LAB HEMATOLOGY METHOD 12/18/2024 5:30 AM EDT [facility] Platelet Count 201 155 - 369 10*3/uL LAB HEMATOLOGY METHOD 12/18/2024 5:30 AM EDT [facility] MCV 98 79 - 98 fL LAB HEMATOLOGY METHOD 12/18/2024 5:30 AM EDT [facility] MCH 30.3 26.0 - 32.0 pg LAB HEMATOLOGY METHOD 12/18/2024 5:30 AM EDT [facility] MCHC 30.8 30.7 - 35.5 g/dL LAB HEMATOLOGY METHOD 12/18/2024 5:30 AM EDT [facility] RDW 18.7(H) 11.5 - 14.5 % LAB HEMATOLOGY METHOD 12/18/2024 5:30 AM EDT [facility] MPV 10.0 8.8 - 12.5 fL LAB HEMATOLOGY METHOD 12/18/2024 5:30 AM EDT [facility] nRBC 0.0 <=0.0 per 100 WBCs LAB HEMATOLOGY METHOD 12/18/2024 5:30 AM EDT [facility] Blood Venous blood specimen / Unknown Venipuncture / Unknown 12/18/2024 5:16 AM EDT 12/18/2024 5:22 AM EDT us Ailyn Cabrera MD LAB BLOOD ORDERABLES Final Re sult Performing Organization Address City/[facility]/ZIP Co de Phone Number [facility] [address] [place] [address] * Magnesium, Plasma (12/18/2024 5:16 AM EDT) Magnesium, Plasma 2.0 1.9 - 2.4 mg/dL 12/18/2024 5:52 AM EDT [facility] Blood Venous blood specimen / Unknown Venipuncture / Unknown 12/18/2024 5:16 AM EDT 12/18/2024 5:23 AM EDT us Lisa Lloyd DO LAB BLOOD ORDERABLES Final Resu lt Performing Organization Address City/[facility]/ZIP Co de Phone Number [facility] [address] [place] [address] * (ABNORMAL) Comprehensive Metabolic Panel, Plasma (12/18/2024 5:16 AM EDT) Glucose, Plasma 130(H) 74 - 99 mg/dL 12/18/2024 5:52 AM EDT [facility] BUN, Plasma 8 8 - 23 mg/dL 12/18/2024 5:52 AM EDT [facility] Creatinine, Plasma 1.05 0.60 - 1.10 mg/dL 12/18/2024 5:52 AM EDT [facility] BUN/Creatinine Ratio 8 12/18/2024 5:52 AM EDT [facility] Sodium, Plasma 146(H) 136 - 145 mmol/L 12/18/2024 5:52 AM EDT [facility] Potassium, Plasma 3.8 3.6 - 4.9 mmol/L 12/18/2024 5:52 AM EDT [facility] Chloride, Plasma 109(H) 97 - 107 mmol/L 12/18/2024 5:52 AM EDT [facility] CO2, Plasma 26 22 - 29 mmol/L 12/18/2024 5:52 AM EDT [facility] Anion Gap 11 6 - 16 mmol/L 12/18/2024 5:52 AM EDT [facility] Total Calcium, Plasma 8.8(L) 8.9 - 10.2 mg/dL 12/18/2024 5:52 AM EDT [facility] Total Protein 6.4 6.3 - 7.9 g/dL 12/18/2024 5:52 AM EDT [facility] Albumin, Plasma 3.0(L) 3.5 - 5.2 g/dL 12/18/2024 5:52 AM EDT [facility] AST, Plasma 23 10 - 35 U/L 12/18/2024 5:52 AM EDT [facility] Comment:Hemolyzed, result ma y be falsely increased. ALT, Plasma 11 10 - 35 U/L 12/18/2024 5:52 AM EDT [facility] Alkaline Phosphatase, Plasma 75 46 - 142 U/L 12/18/2024 5:52 AM EDT [facility] Total Bilirubin, Plasma 0.3 0.2 - 1.1 mg/dL 12/18/2024 5:52 AM EDT [facility] eGFRcr 59.5 mL/min/1.7 3m*2 12/18/2024 5:52 AM EDT [facility] Comment:Reported eGFRcr in m L/min/1.73m2 is based the CKD-EPI 2020 equation that does not use a race coefficient. Blood Venous blood specimen / Unknown Venipuncture / Unknown 12/18/2024 5:16 AM EDT 12/18/2024 5:23 AM EDT [facility] LAB BLOOD ORDERABLES Final Resu lt Performing Organization Address [facility] [place] [address] * (ABNORMAL) Hemoglobin and Hematocrit, Blood (12/17/2024 9:59 PM EDT) HGB 6.9(L) 11.2 - 15.7 g/dL LAB HEMATOLOGY METHOD 12/17/2024 9:59 PM EDT [facility] HCT 22.2(L) 34.0 - 45.0 % LAB HEMATOLOGY METHOD 12/17/2024 9:59 PM EDT [facility] Blood Venous blood specimen / Unknown 12/17/2024 9:51 PM EDT [facility] LAB BLOOD ORDERABLES Final Resu lt Performing Organization Address City/[facility] Co de Phone Number [facility] [address] [place] [address] * PERIPHERAL IV (SMARTFORM LINK) (12/17/2024 9:45 [...] covered with: Transparent semipermeable dressing us Gordy Segura Valentedonnyjuniorraine QLIKVIEW DEVELOPER, DNP IV THERAPY ORDERA BLES Final Result * (ABNORMAL) POCT glucose meter (12/17/2024 9:09 PM EDT) [facility] POCT Glucose 114(H) 74 - 99 mg/dL 12/17/2024 9:11 PM EDT [facility] Comment:Accuracy of a [...] Comment 12/17/2024 9:11 PM EDT [facility] Car Packer ID Herman Gallardo 12/17/2024 9:11 PM EDT [facility] LAB Device ID [id number] 12/17/2024 9:11 PM EDT [facility] Specimen Type POC Capillary 12/17/2024 9:11 PM EDT [facility] Blood Capillary blood specimen / Unknown 12/17/2024 9:09 PM EDT 12/17/2024 9:11 PM EDT us Lisa Lloyd DO LAB POINT OF CARE TE ST DOCKED DEVICE UNSOLICITED RESULTS Final Result [facility] [address] [place] [address] * (ABNORMAL) CBC W/O Differential - HIT surveillance (12/17/2024 3:22 PM EDT) [facility] WBC Count 8.32 3.70 - 10.30 10*3/uL LAB HEMATOLOGY METHOD 12/17/2024 3:49 PM EDT [facility] RBC Count 2.37(L) 3.90 - 5.20 10*6/uL LAB HEMATOLOGY METHOD 12/17/2024 3:49 PM EDT [facility] HGB 7.1(L) 11.2 - 15.7 g/dL LAB HEMATOLOGY METHOD 12/17/2024 3:49 PM EDT [facility] HCT 23.1(L) 34.0 - 45.0 % LAB HEMATOLOGY METHOD 12/17/2024 3:49 PM EDT [facility] Platelet Count 202 155 - 369 10*3/uL LAB HEMATOLOGY METHOD 12/17/2024 3:49 PM EDT [facility] MCV 98 79 - 98 fL LAB HEMATOLOGY METHOD 12/17/2024 3:49 PM EDT [facility] MCH 30.0 26.0 - 32.0 pg LAB HEMATOLOGY METHOD 12/17/2024 3:49 PM EDT [facility] MCHC 30.7 30.7 - 35.5 g/dL LAB HEMATOLOGY METHOD 12/17/2024 3:49 PM EDT [facility] RDW 18.6(H) 11.5 - 14.5 % LAB HEMATOLOGY METHOD 12/17/2024 3:49 PM EDT [facility] MPV 10.1 8.8 - 12.5 fL LAB HEMATOLOGY METHOD 12/17/2024 3:49 PM EDT [facility] nRBC 0.0 <=0.0 per 100 WBCs LAB HEMATOLOGY METHOD 12/17/2024 3:49 PM EDT [facility] Blood Venous blood specimen / Unknown Venipuncture / Unknown 12/17/2024 3:22 PM EDT 12/17/2024 3:40 PM EDT us Ailyn Cabrera MD LAB BLOOD ORDERABLES Final Re sult [facility] [address] [place] [address] * Phosphorus, Plasma (12/17/2024 3:22 PM EDT) Phosphorus, Plasma 3.5 2.5 - 4.5 mg/dL 12/17/2024 4:08 PM EDT [facility] Blood Venous blood specimen / Unknown Venipuncture / Unknown 12/17/2024 3:22 PM EDT 12/17/2024 3:38 PM EDT us Lisa Lloyd DO LAB BLOOD ORDERABLES Final Resu lt [facility] [address] [place] [address] * (ABNORMAL) Comprehensive Metabolic Panel, Plasma (12/17/2024 3:22 PM EDT) Pathologist [facility] Glucose, Plasma 133(H) 74 - 99 mg/dL 12/17/2024 4:08 PM EDT [facility] BUN, Plasma 11 8 - 23 mg/dL 12/17/2024 4:08 PM EDT [facility] Creatinine, Plasma 1.14(H) 0.60 - 1.10 mg/dL 12/17/2024 4:08 PM EDT [facility] BUN/Creatinine Ratio 10 12/17/2024 4:08 PM EDT [facility] Sodium, Plasma 142 136 - 145 mmol/L 12/17/2024 4:08 PM EDT [facility] Potassium, Plasma 3.7 3.6 - 4.9 mmol/L 12/17/2024 4:08 PM EDT [facility] Chloride, Plasma 105 97 - 107 mmol/L 12/17/2024 4:08 PM EDT [facility] CO2, Plasma 27 22 - 29 mmol/L 12/17/2024 4:08 PM EDT [facility] Anion Gap 10 6 - 16 mmol/L 12/17/2024 4:08 PM EDT [facility] Total Calcium, Plasma 8.7(L) 8.9 - 10.2 mg/dL 12/17/2024 4:08 PM EDT [facility] Total Protein 6.5 6.3 - 7.9 g/dL 12/17/2024 4:08 PM EDT [facility] Albumin, Plasma 3.1(L) 3.5 - 5.2 g/dL 12/17/2024 4:08 PM EDT [facility] AST, Plasma 17 10 - 35 U/L 12/17/2024 4:08 PM EDT [facility] ALT, Plasma 10 10 - 35 U/L 12/17/2024 4:08 PM EDT [facility] Alkaline Phosphatase, Plasma 75 46 - 142 U/L 12/17/2024 4:08 PM EDT [facility] Total Bilirubin, Plasma 0.3 0.2 - 1.1 mg/dL 12/17/2024 4:08 PM EDT [facility] eGFRcr 53.9 mL/min/1.7 3m*2 12/17/2024 4:08 PM EDT [facility] Comment:Reported eGFRcr in m L/min/1.73m2 is based the CKD-EPI 2020 equation that does not use a race coefficient. Blood Venous blood specimen / Unknown Venipuncture / Unknown 12/17/2024 3:22 PM EDT 12/17/2024 3:38 PM EDT us Lisa Lloyd DO LAB BLOOD ORDERABLES Final Resu lt Performing Organization Address City/[facility]/ZIP Co de Phone Number [facility] [address] [place] [address] * (ABNORMAL) Magnesium (12/17/2024 3:22 PM EDT) Magnesium, Plasma 1.7(L) 1.9 - 2.4 mg/dL 12/17/2024 4:08 PM EDT [facility] Blood Venous blood specimen / Unknown Venipuncture / Unknown 12/17/2024 3:22 PM EDT 12/17/2024 3:38 PM EDT us Gordy Purvis APRN, DNP LAB BLOOD ORDERAB LES Final Result [facility] [address] [place] [address] * Type and Screen (12/17/2024 3:22 PM [...] TEST ORDERABLES Final Result Performing Organization Address [facility] de Phone Number BLOOD BANK [address] [place] [address], * Wilbur auris Surveillance by PCR (12/17/2024 4:24 AM EDT) Pathologist [facility] Wilbur auris PCR Result Not Detected Not Detected 12/19/2024 5:[address] [facility] Swab (Axilla and Groin) Non-blood Collection / Unknown 12/17/2024 4:24 AM EDT 12/17/2024 5:09 AM EDT Narrative [facility] - 12/19/2024 5:43 AM EDT This PCR assay was developed and its performance characteristics determined by [facility] as appropriate for clinical purposes. This assay has not been cleared or approved by the FDA, but is performed in a CLIA regulated laboratory that is qualified to perform high-complexity testing. Desi Pop MD LAB MICROBIOLOGY - GENERAL ORDER SOLOMON Final Result Performing Organization Address [facility] [place] [address] * (ABNORMAL) POCT glucose meter (12/16/2024 7:29 PM EDT) POCT Glucose 218(H) 74 - 99 mg/dL 12/16/2024 7:31 PM EDT [facility] Comment:Accuracy of a glucos e [...] Comment 12/16/2024 7:31 PM EDT [facility]ALTH[facility] Car Packer ID Vale Batista 12/16/2024 7:31 PM EDT HEALTH[facility]ARE LAB Device ID [id number] 12/16/2024 7:31 PM EDT [facility] Specimen Type POC Capillary 12/16/2024 7:31 PM EDT [facility] Blood Capillary blood specimen / Unknown 12/16/2024 7:29 PM EDT 12/16/2024 7:31 PM EDT us Desi Pop MD LAB POINT OF CARE TE ST DOCKED DEVICE UNSOLICITED RESULTS Final Result Performing Organization Address City/[facility]/ZIP Co de Phone Number [facility]ALTH[facility]ARE LAB [address] [place] [address] * (ABNORMAL) POCT glucose meter (12/16/2024 4:55 [...] Comment 12/16/2024 4:57 PM EDT [facility] Car Packer ID Kike William 025 4:57 PM EDT [facility]ALTH[facility] LAB Device ID [id number] 12/16/2024 4:57 PM EDT [facility] Specimen Type POC Capillary 12/16/2024 4:57 PM EDT [facility] Blood Capillary blood specimen / Unknown 12/16/2024 4:55 PM EDT 12/16/2024 4:57 PM EDT us Desi Pop MD LAB POINT OF CARE TE ST DOCKED DEVICE UNSOLICITED RESULTS Final Result Performing Organization Address City/[facility]/ZIP Co de Phone Number [facility] [address] [place] [address] * Fungal Culture, Tissue and GARO (12/16/2024 1:59 PM EDT) Culture Reading Mycological 4 Weeks Fungal culture overgrown with bacteria 12/30/2024 6:53 AM EDT [facility] GARO No fungal elements seen 12/30/2024 6:53 AM EDT [facility] Bone Topography unknown / Unknown 12/16/2024 1:59 PM EDT 12/16/2024 3:02 PM EDT Comment:Pre-op diagnosis: Incisional infection [T81.49XA] us Abhilash Bangura MD LAB MICROBIOLOGY - GENERAL ORD ERABLES Final Result [facility] [address] [place] [address] * (ABNORMAL) Bone Culture and Gram Stain (12/16/2024 1:59 PM EDT) Culture Light Growth 12/21/2024 3:10 PM EDT [facility] Culture Pseudomonas aeruginosa MDR, FARM HELPER(AA) DONAVAN 12/21/2024 3:10 PM EDT [facility] Comment: This isolate has been identified using the FDA Approved [employer] [place] System The organism value for this result has been updated. These results have been appended to the previously preliminary verified report. Edited result: Previously reported as Pseudomonas aeruginosa on 12/20/2024 at 0807 EDT. This is a corrected result. Previous organism was Pseudomonas aeruginosa MDR, WARD MAID on 12/20/2024 at 1256 EDT. Gram Stain Result Moderate Polymorphonuclear leukocytes 12/21/2024 3:10 PM EDT [facility] Gram Stain Result No organisms seen 12/21/2024 3:10 PM EDT [facility] Bone Topography unknown / Unknown 12/16/2024 1:59 PM EDT 12/16/2024 3:02 PM EDT Comment:Pre-op diagnosis: Incisional infection [T81.49XA] Narrative Organism Antibiotic Method Susceptibility Pseudomonas aeruginosa MDR, FARM HELPER Aztreonam DONAVAN 8 ug/ml: Susceptible Pseudomonas aeruginosa MDR, FARM HELPER Cefepime DONAVAN 8 ug/ml: Susceptible Pseudomonas aeruginosa MDR, FARM HELPER Levofloxacin DONAVAN >4 ug/ml: Resistant Pseudomonas aeruginosa MDR, FARM HELPER Meropenem DONAVAN >8 ug/ml: Resistant Pseudomonas aeruginosa MDR, FARM HELPER Tobramycin DONAVAN >8 ug/ml: Resistant Pseudomonas aeruginosa MDR, FARM HELPER Piperacillin/Tazobactam ETEST 96.0 ug/ml: Resistant Comment:The previously repor samaria component Piperacillin/Tazobactam is no longer being reported. Abhilash Bangura MD LAB MICROBIOLOGY - GENERAL ORD ERABLES Edited Result - Final Performing Organization Address [facility]/[place] [address] * Anaerobic Culture (12/16/2024 1:59 PM EDT) Culture No anaerobes isolated 12/20/2024 2:47 PM EDT [facility] Bone Topography unknown / Unknown 12/16/2024 1:59 PM EDT 12/16/2024 3:02 PM EDT Comment:Pre-op diagnosis: Incisional infection [T81.49XA] Abhilash Bangura MD LAB MICROBIOLOGY - GENERAL ORD ERABLES Final Result Performing Organization Address [facility] [place] [address] * (ABNORMAL) Routine Culture and Gram Stain (12/16/2024 1:58 PM EDT) Culture Light Growth 12/21/2024 3:10 PM EDT [facility] Culture Pseudomonas aeruginosa MDR, FARM HELPER(AA) DONAVAN 12/21/2024 3:10 PM EDT [facility] Comment: This isolate has been identified using the FDA Approved [employer] [place] System The organism value for this result has been updated. These results have been appended to the previously preliminary verified report. Edited result: Previously reported as Pseudomonas aeruginosa on 12/20/2024 at 0807 EDT. This is a corrected result. Previous organism was Pseudomonas aeruginosa FARM HELPER on 12/21/2024 at 1131 EDT. Gram Stain Result Moderate Polymorphonuclear leukocytes 12/21/2024 3:10 PM EDT [facility] Gram Stain Result No organisms seen 12/21/2024 3:10 PM EDT [facility] Swab Topography unknown / Unknown 12/16/2024 1:58 PM EDT 12/16/2024 3:01 PM EDT Comment:Pre-op diagnosis: Incisional infection [T81.49XA] Narrative Organism Antibiotic Method Susceptibility Pseudomonas aeruginosa MDR, FARM HELPER Aztreonam DONAVAN 8 ug/ml: Susceptible Pseudomonas aeruginosa MDR, FARM HELPER Cefepime DONAVAN 8 ug/ml: Susceptible Pseudomonas aeruginosa MDR, FARM HELPER Levofloxacin DONAVAN >4 ug/ml: Resistant Pseudomonas aeruginosa MDR, FARM HELPER Meropenem DONAVAN >8 ug/ml: Resistant Pseudomonas aeruginosa MDR, FARM HELPER Tobramycin DONAVAN >8 ug/ml: Resistant Pseudomonas aeruginosa MDR, FARM HELPER Piperacillin/Tazobactam ETEST 96.0 ug/ml: Resistant Comment:The previously repor samaria component Piperacillin/Tazobactam is no longer being reported. Abhilash Bangura MD LAB MICROBIOLOGY - GENERAL ORD ERABLES Edited Result - Final Performing Organization Address [facility] Co de Phone Number [facility] [address] [place] [address] * Fungal Culture, Routine (12/16/2024 1:58 PM EDT) Culture No Fungal Growth at 1 Week 12/23/2024 6:39 AM EDT [facility] Swab Topography unknown / Unknown 12/16/2024 1:58 PM EDT 12/16/2024 3:01 PM EDT Comment:Pre-op diagnosis: Incisional infection [T81.49XA] Abhilash Bangura MD LAB MICROBIOLOGY - GENERAL ORD ERABLES Final Result [facility] [address] [place] [address] * Anaerobic Culture (12/16/2024 1:58 PM EDT) Culture No anaerobes isolated 12/20/2024 2:47 PM EDT [facility] Swab Topography unknown / Unknown 12/16/2024 1:58 PM EDT 12/16/2024 3:01 PM EDT Comment:Pre-op diagnosis: Incisional infection [T81.49XA] Abhilash Bangura MD LAB MICROBIOLOGY - GENERAL ORD ERABLES Final Result Performing Organization Address [facility] Co de Phone Number [facility] [address] [place] [address] * (ABNORMAL) POCT glucose meter (12/16/2024 12:53 [...] Comment 12/16/2024 12:55 PM EDT [facility] Car Packer ID Christina Pierce 12/17/19 12:55 PM EDT [facility] Device ID [id number] 12/16/2024 12:55 PM EDT [facility] Specimen Type POC Venous 12/16/2024 12:55 PM EDT [facility] Blood Venous blood specimen / Unknown 12/16/2024 12:53 PM EDT 12/16/2024 12:55 PM EDT Desi Pop MD LAB POINT OF CARE TE ST DOCKED DEVICE UNSOLICITED RESULTS Final Result Performing Organization Address [facility] Co de Phone Number [facility] [address] [place] [address] * (ABNORMAL) Respiratory Culture and Gram Stain (12/16/2024 8:47 AM EDT) [facility] Culture Smear contains >=10 squamous epithelial cells per low power field, suggestive of poor quality. Culture not performed. A credit has been issued. 12/16/2024 9:50 AM EDT [facility] Gram Stain Result Greater than 10 Epithelial cells/LPF(A) 12/16/2024 9:50 AM EDT [facility] Gram Stain Result Fewer than 25 WBC/LPF(A) 12/16/2024 9:50 AM EDT [facility] Gram Stain Result Few Gram positive cocci in clusters(A) 12/16/2024 9:50 AM EDT [facility] Gram Stain Result Rare Gram positive cocci in pairs and chains(A) 12/16/2024 9:50 AM EDT [facility] Gram Stain Result Few Gram negative rods(A) 12/16/2024 9:50 AM EDT [facility] Gram Stain Result Rare Budding yeast(A) 12/16/2024 9:50 AM EDT [facility] Sputum Coughed sputum specimen / Unknown Non-blood Collection / Unknown 12/16/2024 8:47 AM EDT 12/16/2024 9:09 AM EDT Gordy Purvis APRN, DNP LAB MICROBIOLOGY - GENERAL ORDERABLES Final Result [facility] [address] [place] [address] * Histoplasma Galactomannan EIA, Urine (SO) (12/16/2024 8:39 AM EDT) Histoplasma Galactomannan EIA, Urine <0.3 <0.3 ng/mL 12/17/2024 5:07 PM EDT [facility] (ALEX) Comment: This test is used for [...] Histoplasma Galactomannan EIA is a product of [employer]. and is labeled for in-vitro diagnostic use. This test has been registered with the FDA and is considered safe and effective for the detection of Histoplasma Galactomannan. Testing Performed at: [facility] [address] [place] [address] [address] [place] [address] Aeronautical Engineer: Anatoly Turk, PhD BCLD ([facility]) CLIA # [id number] FLAG Interpretation: A = Abnormal, H = High, L = Low Urine Urine specimen obtained by clean catch procedure / Unknown Non-blood Collection / Unknown 12/16/2024 8:39 AM EDT 12/16/2024 9:04 AM EDT Narrative ALLIE FINK) - 12/17/2024 5:07 PM EDT Release to patient in [facility]->Immediate Gordy Purvis APRN, DNP LAB REF LAB BLOOD AND FLUID ORD Final Result ALLIE FINK) * Streptococcus pneumoniae and Legionella Urinary Antigen (12/16/2024 8:39 AM EDT) Legionella pneumophila serogroup 1 Antigen Result (Urine) Negative Negative 12/16/2024 10:35 AM EDT [facility] Streptococcus pneumoniae Antigen Result (Urine) Negative Negative 12/16/2024 10:35 AM EDT [facility] Urine Urine specimen obtained by clean catch procedure / Unknown Non-blood Collection / Unknown 12/16/2024 8:39 AM EDT 12/16/2024 9:09 AM EDT us Gordy Purivs APRN, DNP LAB MICROBIOLOGY - GENERAL ORDERABLES Final Result Performing Organization Address City/[facility] Co de Phone Number [facility] [address] [place] [address] * (ABNORMAL) POCT glucose meter (12/16/2024 8:28 AM EDT) [facility] POCT Glucose 145(H) 74 - 99 mg/dL [...] Comment 12/16/2024 8:42 AM EDT [facility] Car Packer ID Marie Arroyo 8:42 AM EDT [facility] Device ID [id number] 12/16/2024 8:42 AM EDT [facility] Specimen Type POC Capillary 12/16/2024 8:42 AM EDT [facility] Blood Capillary blood specimen / Unknown 12/16/2024 8:28 AM EDT 12/16/2024 8:42 AM EDT us Desi Pop MD LAB POINT OF CARE TE ST DOCKED DEVICE UNSOLICITED RESULTS Final Result Performing Organization Address City/[facility]/ZIP Co de Phone Number [facility] [address] [place] [address] * APTT (12/16/2024 8:24 AM EDT) [facility] aPTT 26 25 - 35 sec 12/16/2024 8:43 AM EDT [facility] Blood Venous blood specimen / Unknown Venipuncture / Unknown 12/16/2024 8:24 AM EDT 12/16/2024 8:28 AM EDT Abhilash Bangura MD LAB BLOOD ORDERABLES Final Res ult Performing Organization Address City/[facility]/ZIP Co de Phone Number [facility] [address] [place] [address] * (ABNORMAL) Prothrombin Time/INR (12/16/2024 8:24 AM EDT) Prothrombin Time 15.1(H) 12.0 - 14.3 sec 12/16/2024 8:42 AM EDT [facility] INR 1.2(H) 0.9 - 1.1 12/16/2024 8:42 AM EDT [facility] Blood Venous blood specimen / Unknown Venipuncture / Unknown 12/16/2024 8:24 AM EDT 12/16/2024 8:28 AM EDT Narrative [facility] - 12/16/2024 8:42 AM EDT OPTIMAL INR RANGES FOR PATIENT ON ORAL ANTICOAGULANT THERAPY Prevention of venous thromboembolism INR 2.0 to 3.0 In patients with heart disease: Atrial fibrillation INR 2.0 to 3.0 Valvular heart disease INR 2.0 to 3.0 Tissue heart valves INR 2.0 to 3.0 Mechanical prosthetic valves INR 2.5 to 3.5 Prevention of recurrent IN INR 2.5 to 3.5 Abhilash Bangura MD LAB BLOOD ORDERABLES Final Res ult Performing Organization Address City/[facility]/ZIP Co de Phone Number [facility] [address] [place] [address] * Methicillin Resistant Staphylococcus aureus (MRSA) by PCR (12/16/2024 7:50 AM EDT) Methicillin Resistant Staphylococcus aureus (MRSA) by PCR Not Detected Not Detected 12/16/2024 10:01 AM EDT [facility] Swab Both anterior nares / Unknown Non-blood Collection / Unknown 12/16/2024 7:50 AM EDT 12/16/2024 8:46 AM EDT Narrative [facility] - 12/16/2024 10:01 AM EDT This [...] GENERAL ORDERABLES Final Result Performing Organization Address [facility] Co de Phone Number [facility] [address] [place] [address] * Multi Drug Resistance Test (12/16/2024 7:50 AM EDT) Culture No growth at day 1 12/17/2024 9:[address] [facility] Swab (Nares and Carole Rectal) Non-blood Collection / Unknown 12/16/2024 7:50 AM EDT 12/16/2024 8:45 AM EDT Narrative [facility] - 12/17/2024 9:52 AM EDT This test was developed and its performance characteristics determined by the [facility]. Although the media is FDA-approved, it is not FDA-approved for all specimen types submitted. The FDA has determined that such clearance or approval is not necessary. This test is used for surveillance purposes. It should not be regarded as investigational or for research. The [facility] is certified under the Clinical Laboratory Improvement Amendments of 1988 (CLIA-88) as qualified to perform high complexity clinical laboratory testing. Gordy Purvis APRN, DNP LAB MICROBIOLOGY - GENERAL ORDERABLES Final Result Performing Organization Address City/[facility] Co de Phone Number [facility] [address] [place] [address] * (ABNORMAL) Procalcitonin (12/16/2024 5:52 AM EDT) Procalcitonin, Plasma 0.15(H) <0.09 ng/mL 12/16/2024 7:[address] [facility] Blood Venous blood specimen / Unknown Venipuncture / Unknown 12/16/2024 5:52 AM EDT 12/16/2024 5:55 AM EDT Narrative [facility] - 12/16/2024 7:10 AM EDT Procalcitonin [...] predict 28 day mortality risk. Please consult [email or web address] for more information. Test performed at [facility]. us Gordy Purvsi APRN, DNP LAB BLOOD ORDERAB LES Final Result Performing Organization Address City/[facility]/ZIP Co de Phone Number [facility] [address] [place] [address] * Blood Culture (Aerobic/Anaerobet Set) (12/16/2024 5:52 AM EDT) [facility] Culture No growth at day 5 12/21/2024 7:[address] [facility] Blood Venous blood specimen / Unknown Venipuncture / Unknown 12/16/2024 5:52 AM EDT 12/16/2024 6:14 AM EDT Narrative [facility] - 12/21/2024 7:01 AM EDT Low blood volume submitted, results may be compromised us Amilcar Ibarra MD LAB MICROBIOLOGY - G ENERAL ORDERABLES Final Result [facility] [address] [place] [address] * (ABNORMAL) C-reactive protein (12/16/2024 5:52 AM EDT) CRP, Plasma 54.2(H) <=8.0 mg/L 12/16/2024 6:44 AM EDT [facility] Blood Venous blood specimen / Unknown Venipuncture / Unknown 12/16/2024 5:52 AM EDT 12/16/2024 5:55 AM EDT Narrative [facility] - 12/16/2024 6:44 AM EDT This CRP test is appropriate for assessment of infection, systemic inflammation and/or tissue injury. To assess cardiovascular disease risk order high sensitivity CRP (CRPH). us Amilcar Ibarra MD LAB BLOOD ORDERABLES Final Result Performing Organization Address City/[facility]/ZIP Co de Phone Number [facility] [address] [place] [address] * (ABNORMAL) Sedimentation Rate, Automated (12/16/2024 5:52 AM EDT) Sedimentation Rate 46(H) <30 mm/hr 2024 6:08 AM EDT [facility] Blood Venous blood specimen / Unknown Venipuncture / Unknown 12/16/2024 5:52 AM EDT 12/16/2024 5:55 AM EDT Amilcar Ibarra MD LAB BLOOD ORDERABLES Final Result Performing Organization Address City/[facility]/ZIP Co de Phone Number [facility] [address] [place] [address] * (ABNORMAL) CBC W/O Differential (12/16/2024 5:52 AM EDT) WBC Count 9.08 3.70 - 10.30 10*3/uL LAB HEMATOLOGY METHOD 12/16/2024 5:57 AM EDT [facility] RBC Count 2.69(L) 3.90 - 5.20 10*6/uL LAB HEMATOLOGY METHOD 12/16/2024 5:57 AM EDT [facility] HGB 8.0(L) 11.2 - 15.7 g/dL LAB HEMATOLOGY METHOD 12/16/2024 5:57 AM EDT [facility] HCT 25.6(L) 34.0 - 45.0 % LAB HEMATOLOGY METHOD 12/16/2024 5:57 AM EDT [facility] Platelet Count 187 155 - 369 10*3/uL LAB HEMATOLOGY METHOD 12/16/2024 5:57 AM EDT [facility] MCV 95 79 - 98 fL LAB HEMATOLOGY METHOD 12/16/2024 5:57 AM EDT [facility] MCH 29.7 26.0 - 32.0 pg LAB HEMATOLOGY METHOD 12/16/2024 5:57 AM EDT [facility] MCHC 31.3 30.7 - 35.5 g/dL LAB HEMATOLOGY METHOD 12/16/2024 5:57 AM EDT [facility] RDW 18.7(H) 11.5 - 14.5 % LAB HEMATOLOGY METHOD 12/16/2024 5:57 AM EDT [facility] MPV 9.4 8.8 - 12.5 fL LAB HEMATOLOGY METHOD 12/16/2024 5:57 AM EDT [facility] nRBC 0.0 <=0.0 per 100 WBCs LAB HEMATOLOGY METHOD 12/16/2024 5:57 AM EDT [facility] Blood Venous blood specimen / Unknown Venipuncture / Unknown 12/16/2024 5:52 AM EDT 12/16/2024 5:55 AM EDT Abhilash Bangura MD LAB BLOOD ORDERABLES Final Res ult [facility] [address] [place] [address] * (ABNORMAL) Basic Metabolic Panel, Plasma (12/16/2024 5:52 AM EDT) Glucose, Plasma 168(H) 74 - 99 mg/dL 12/16/2024 6:44 AM EDT [facility] BUN, Plasma 18 8 - 23 mg/dL 12/16/2024 6:44 AM EDT [facility] Creatinine, Plasma 1.50(H) 0.60 - 1.10 mg/dL 12/16/2024 6:44 AM EDT [facility] BUN/Creatinine Ratio 12 12/16/2024 6:44 AM EDT [facility] Sodium, Plasma 138 136 - 145 mmol/L 12/16/2024 6:44 AM EDT [facility] Potassium, Plasma 3.8 3.6 - 4.9 mmol/L 12/16/2024 6:44 AM EDT [facility] Chloride, Plasma 100 97 - 107 mmol/L 12/16/2024 6:44 AM EDT [facility] CO2, Plasma 24 22 - 29 mmol/L 12/16/2024 6:44 AM EDT [facility] Anion Gap 14 6 - 16 mmol/L 12/16/2024 6:44 AM EDT [facility] Total Calcium, Plasma 9.0 8.9 - 10.2 mg/dL 12/16/2024 6:44 AM EDT [facility] eGFRcr 38.8 mL/min/1.7 3m*2 12/16/2024 6:44 AM EDT [facility] Comment:Reported eGFRcr in m L/min/1.73m2 is based the CKD-EPI 2020 equation that does not use a race coefficient. Blood Venous blood specimen / Unknown Venipuncture / Unknown 12/16/2024 5:52 AM EDT 12/16/2024 5:55 AM EDT us Abhilash Bangura MD LAB BLOOD ORDERABLES Final Res ult Performing Organization Address City/[facility]/ZIP Co de Phone Number [facility] [address] [place] [address] * (ABNORMAL) Magnesium, Plasma (12/16/2024 5:52 AM EDT) Magnesium, Plasma 1.0(L) 1.9 - 2.4 mg/dL 12/16/2024 6:44 AM EDT [facility] Blood Venous blood specimen / Unknown Venipuncture / Unknown 12/16/2024 5:52 AM EDT 12/16/2024 5:55 AM EDT us Abhilash Bangura MD LAB BLOOD ORDERABLES Final Res ult Performing Organization Address City/[facility]/ZIP Co de Phone Number [facility] [address] [place] [address] * Phosphorus, Plasma (12/16/2024 5:52 AM EDT) Phosphorus, Plasma 2.9 2.5 - 4.5 mg/dL 12/16/2024 6:44 AM EDT [facility] Blood Venous blood specimen / Unknown Venipuncture / Unknown 12/16/2024 5:52 AM EDT 12/16/2024 5:55 AM EDT Abhilash Bangura MD LAB BLOOD ORDERABLES Final Res ult Performing Organization Address City/[facility]/ZIP Co de Phone Number [facility] [address] [place] [address] * ECG Adult (12/16/2024 4:31 AM EDT) EKG DIAGNOSIS CLASS Abnormal MUSE ECG Ventricular Rate 150 BPM MUSE ECG QRSD Interval 86 ms MUSE ECG QT Interval 314 ms MUSE ECG QTC Interval 496 ms MUSE ECG R Graford 9 degrees MUSE ECG T Wave Graford 62 degrees MUSE ECG Diagnosis Atrial fibrillation with rapid ventricular response MUSE ECG Diagnosis Nonspecific ST and T wave abnormality MUSE ECG Diagnosis Abnormal ECG MUSE ECG Diagnosis MUSE ECG Diagnosis Confirmed by Cleve Fuller ([id number]) on 12/16/2024 1:22:18 PM MUSE ECG 12/16/2024 4:31 AM EDT 12/16/2024 1:22 PM EDT Gordy Purvis APRN, DNP ECG ORDERABLES F inal Result Performing Organization Address City/[facility]/ZIP Co de Phone Number MUSE ECG * (ABNORMAL) Protime-INR (12/16/2024 3:36 AM EDT) Prothrombin Time 15.2(H) 12.0 - 14.3 sec 12/16/2024 4:00 AM EDT [facility] INR 1.2(H) 0.9 - 1.1 12/16/2024 4:00 AM EDT [facility] Blood Venous blood specimen / Unknown Venipuncture / Unknown 12/16/2024 3:36 AM EDT 12/16/2024 3:47 AM EDT Narrative [facility] - 12/16/2024 4:00 AM EDT OPTIMAL INR RANGES FOR PATIENT ON ORAL ANTICOAGULANT THERAPY Prevention of venous thromboembolism INR 2.0 to 3.0 In patients with heart disease: Atrial fibrillation INR 2.0 to 3.0 Valvular heart disease INR 2.0 to 3.0 Tissue heart valves INR 2.0 to 3.0 Mechanical prosthetic valves INR 2.5 to 3.5 Prevention of recurrent IN INR 2.5 to 3.5 Ailyn Cabrera MD LAB BLOOD ORDERABLES Final Re sult Performing Organization Address [facility] Co de Phone Number [address] [address] * Anti Xa Level by Unfractionated Heparin - Baseline (12/16/2024 3:36 AM EDT) Anti Xa Level Unfractionated Heparin <0.11 <1.00 IU/mL 12/16/2024 4:[address] [facility] Blood Venous blood specimen / Unknown Venipuncture / Unknown 12/16/2024 3:36 AM EDT 12/16/2024 3:47 AM EDT Narrative [facility] - 12/16/2024 4:02 AM EDT Therapeutic Range: UFH Full Dose and ACS/IN protocols*: 0.30 - 0.70 IU/mL UFH Low Dose protocol*: 0.25 - 0.50 IU/mL UFH prophylaxis: Not established Ailyn Cabrera MD LAB BLOOD ORDERABLES Final Re sult Performing Organization Address [facility]/ZIP Co de Phone Number [facility] [address] [place] [address] * (ABNORMAL) Troponin T, High Sensitivity, 2 Hour, Plasma (12/16/2024 1:39 AM EDT) Troponin T, High Sensitivity, 2 Hour 28(H) <14 ng/L 12/16/2024 2:[address] [facility] Troponin Delta 1 <10 ng/L 12/16/2024 2:08 AM EDT [facility] Troponin Delta Interpretation Not Significant 12/16/2024 2:08 AM EDT [facility] Comment:Not Significant. No acute change in troponin observed between the baseline and 2 hour samples. Blood Venous blood specimen / Unknown Venipuncture / Unknown 12/16/2024 1:39 AM EDT 12/16/2024 1:40 AM EDT us Balwinder Lock MD LAB BLOOD ORDERABLES Final Resul t [facility] [address] [place] [address] * CT Angio Pulmonary Embolism (12/16/2024 1:30 [...] ECG Atrial Rate 76 BPM MUSE ECG MO Interval 144 ms MUSE ECG QRSD Interval 88 ms MUSE ECG QT Interval 350 ms MUSE ECG QTC Interval 393 ms MUSE ECG P Graford 73 degrees MUSE ECG R Graford 23 degrees MUSE ECG T Wave Graford 66 degrees MUSE ECG Diagnosis Sinus rhythm with premature supraventricular complexes MUSE ECG Diagnosis Otherwise normal ECG MUSE ECG Diagnosis MUSE ECG Diagnosis Confirmed by Corona Donovan ([id number]) on 12/17/2024 10:53:55 PM MUSE ECG 12/16/2024 12:4 7 AM EDT 12/17/2024 10:53 PM EDT Ailyn Cabrera MD ECG ORDERABLES Final Result Performing Organization Address City/[facility]/ZIP Co de Phone Number MUSE ECG * SARS CoV-2/COVID-19 by PCR - Rapid (12/15/2024 11:19 PM EDT) Pathologist [facility] SARS CoV-2/COVID-1 9 RNA PCR Result Not Detected Not Detected 12/16/2024 1:22 AM EDT [facility] Swab Nasopharyngeal structure / Unknown Non-blood Collection / Unknown 12/15/2024 11:19 PM EDT 12/16/2024 12:39 AM EDT Narrative [facility] - 12/16/2024 1:22 AM EDT This [...] ORDER SOLOMON Final Result Performing Organization Address City/[facility]/ZIP Co de Phone Number [facility] [address] [place] [address] * Nasopharyngeal Respiratory Panel (12/15/2024 11:19 PM EDT) Pathologist [facility] Nasopharyngeal Respiratory PCR Interpretation Not Detected for all analytes Not Detected for all analytes 12/16/2024 2:[address] [facility] Swab Nasopharyngeal structure / Unknown Non-blood Collection / Unknown 12/15/2024 11:19 PM EDT 12/16/2024 12:39 AM EDT Narrative [facility] - 12/16/2024 2:33 AM EDT This [...] Respiratory PCR Panel is performed using the [employer] instrument. This test is FDA approved for use with Nasopharyngeal swabs only. This test is used for clinical purposes. It should not be regarded as investigational or for research. The [facility] is certified under the Clinical Laboratory Improvement Amendments of 1988 (CLIA-88) as qualified to perform high complexity clinical laboratory testing. Balwinder Lock MD LAB MICROBIOLOGY - GENERAL ORDER SOLOMON Final Result [facility] [address] [place] [address] * (ABNORMAL) CBC W/O Differential - Baseline (12/15/2024 11:18 PM EDT) WBC Count 9.58 3.70 - 10.30 10*3/uL LAB HEMATOLOGY METHOD 12/16/2024 3:22 AM EDT [facility] RBC Count 2.55(L) 3.90 - 5.20 10*6/uL LAB HEMATOLOGY METHOD 12/16/2024 3:22 AM EDT [facility] HGB 7.5(L) 11.2 - 15.7 g/dL LAB HEMATOLOGY METHOD 12/16/2024 3:22 AM EDT [facility] HCT 24.7(L) 34.0 - 45.0 % LAB HEMATOLOGY METHOD 12/16/2024 3:22 AM EDT [facility] Platelet Count 206 155 - 369 10*3/uL LAB HEMATOLOGY METHOD 12/16/2024 3:22 AM EDT [facility] MCV 97 79 - 98 fL LAB HEMATOLOGY METHOD 12/16/2024 3:22 AM EDT [facility] MCH 29.4 26.0 - 32.0 pg LAB HEMATOLOGY METHOD 12/16/2024 3:22 AM EDT [facility] MCHC 30.4(L) 30.7 - 35.5 g/dL LAB HEMATOLOGY METHOD 12/16/2024 3:22 AM EDT [facility] RDW 18.6(H) 11.5 - 14.5 % LAB HEMATOLOGY METHOD 12/16/2024 3:22 AM EDT [facility] MPV 10.7 8.8 - 12.5 fL LAB HEMATOLOGY METHOD 12/16/2024 3:22 AM EDT [facility] nRBC 0.0 <=0.0 per 100 WBCs LAB HEMATOLOGY METHOD 12/16/2024 3:22 AM EDT [facility] Blood Venous blood specimen / Unknown Venipuncture / Unknown 12/15/2024 11:18 PM EDT 12/15/2024 11:29 PM EDT Ailyn Cabrera MD LAB BLOOD ORDERABLES Final Re sult [facility] [address] [place] [address] * Blood Culture (Aerobic/Anaerobet Set) (12/15/2024 11:18 PM EDT) Culture No growth at day 5 12/21/2024 2:01 AM EDT [facility] Blood Venous blood specimen / Unknown Venipuncture / Unknown 12/15/2024 11:18 PM EDT 12/16/2024 12:59 AM EDT Balwinder Lock MD LAB MICROBIOLOGY - GENERAL ORDER SOLOMON Final Result Performing Organization Address City/[facility]/ZIP Co de Phone Number [facility] [address] [place] [address] * (ABNORMAL) Sed rate, automated (12/15/2024 11:18 PM EDT) Sedimentation Rate 50(H) <30 mm/hr 2024 11:40 PM EDT [facility] Blood Venous blood specimen / Unknown Venipuncture / Unknown 12/15/2024 11:18 PM EDT 12/15/2024 11:29 PM EDT us Balwinder Lock MD LAB BLOOD ORDERABLES Final Resul t Performing Organization Address [facility]/ZIP Co de Phone Number [facility] [address] [place] [address] * (ABNORMAL) C-reactive protein (12/15/2024 11:18 PM EDT) CRP, Plasma 50.7(H) <=8.0 mg/L 12/15/2024 11:55 PM EDT [facility] Blood Venous blood specimen / Unknown Venipuncture / Unknown 12/15/2024 11:18 PM EDT 12/15/2024 11:23 PM EDT Narrative [facility] - 12/15/2024 11:55 PM EDT This CRP test is appropriate for assessment of infection, systemic inflammation and/or tissue injury. To assess cardiovascular disease risk order high sensitivity CRP (CRPH). us Balwinder Lock MD LAB BLOOD ORDERABLES Final Resul t Performing Organization Address [facility] Co de Phone Number [facility] [address] [place] [address] * (ABNORMAL) Blood gas panel, venous (12/15/2024 11:18 PM EDT) pH, Venous 7.39 7.32 - 7.43 LAB HEMATOLOGY METHOD 12/15/2024 11:36 PM EDT [facility] pCO2, Venous 54(H) 37 - 52 mmHg LAB HEMATOLOGY METHOD 12/15/2024 11:36 PM EDT [facility] pO2, Venous 39 25 - 40 mmHg LAB HEMATOLOGY METHOD 12/15/2024 11:36 PM EDT [facility] SO2, Measured, Venous 68 65 - 80 % LAB HEMATOLOGY METHOD 12/15/2024 11:36 PM EDT [facility] Base Excess, Venous 6.5(H) -2.0 - 3.0 mmol/L LAB HEMATOLOGY METHOD 12/15/2024 11:36 PM EDT [facility] Bicarbonate, Calculated, Venous 32(H) 22 - 26 mmol/L LAB HEMATOLOGY METHOD 12/15/2024 11:36 PM EDT [facility] Hematocrit, Whole Blood 23.4(L) 34.0 - 45.0 % LAB HEMATOLOGY METHOD 12/15/2024 11:36 PM EDT [facility] Sodium, Whole Blood 142 136 - 145 mmol/L LAB HEMATOLOGY METHOD 12/15/2024 11:36 PM EDT [facility] Potassium, Whole Blood 3.8 3.6 - 4.9 mmol/L LAB HEMATOLOGY METHOD 12/15/2024 11:36 PM EDT [facility] Chloride, Whole Blood 100 97 - 107 mmol/L LAB HEMATOLOGY METHOD 12/15/2024 11:36 PM EDT [facility] Glucose, Whole Blood 126(H) 74 - 99 mg/dL LAB HEMATOLOGY METHOD 12/15/2024 11:36 PM EDT [facility] Lactate, Venous, Whole Blood 0.8 0.5 - 2.2 mmol/L LAB HEMATOLOGY METHOD 12/15/2024 11:36 PM EDT [facility] Ionized Calcium, Whole Blood 4.7 4.6 - 5.1 mg/dL LAB HEMATOLOGY METHOD 12/15/2024 11:36 PM EDT [facility] Blood Venous blood specimen / Unknown Venipuncture / Unknown 12/15/2024 11:18 PM EDT 12/15/2024 11:34 PM EDT us Balwinder Lock MD LAB BLOOD ORDERABLES Final Resul t [facility] [address] [place] [address] * BNP (12/15/2024 11:18 PM EDT) N-Terminal, PROBNP, Plasma 879 0 - 899 pg/mL 12/15/2024 11:55 PM EDT [facility] Blood Venous blood specimen / Unknown Venipuncture / Unknown 12/15/2024 11:18 PM EDT 12/15/2024 11:23 PM EDT us Balwinder Lock MD LAB BLOOD ORDERABLES Final Resul t Performing Organization Address [facility]/ZIP Co de Phone Number [facility] [address] [place] [address] * (ABNORMAL) Troponin now and 120 min (12/15/2024 11:18 PM EDT) Troponin T, High Sensitivity, 0 Hour 29(H) <14 ng/L 12/15/2024 11:55 PM EDT [facility] Blood Venous blood specimen / Unknown Venipuncture / Unknown 12/15/2024 11:18 PM EDT 12/15/2024 11:23 PM EDT us Balwinder Lock MD LAB BLOOD ORDERABLES Final Resul t Performing Organization Address [facility] Co de Phone Number [facility] [address] [place] [address] * (ABNORMAL) Lipase (12/15/2024 11:18 PM EDT) Lipase, Plasma 15(L) 19 - 63 U/L 12/15/2024 11:55 PM EDT [facility] Blood Venous blood specimen / Unknown Venipuncture / Unknown 12/15/2024 11:18 PM EDT 12/15/2024 11:23 PM EDT us Balwinder Lock MD LAB BLOOD ORDERABLES Final Resul t Performing Organization Address [facility]/ZIP Co de Phone Number [facility] [address] [place] [address] * (ABNORMAL) CMP (12/15/2024 11:18 PM EDT) Glucose, Plasma 132(H) 74 - 99 mg/dL 12/15/2024 11:55 PM EDT [facility] BUN, Plasma 19 8 - 23 mg/dL 12/15/2024 11:55 PM EDT [facility] Creatinine, Plasma 1.48(H) 0.60 - 1.10 mg/dL 12/15/2024 11:55 PM EDT [facility] BUN/Creatinine Ratio 13 12/15/2024 11:55 PM EDT [facility] Sodium, Plasma 140 136 - 145 mmol/L 12/15/2024 11:55 PM EDT [facility] Potassium, Plasma 3.9 3.6 - 4.9 mmol/L 12/15/2024 11:55 PM EDT [facility] Chloride, Plasma 100 97 - 107 mmol/L 12/15/2024 11:55 PM EDT [facility] CO2, Plasma 28 22 - 29 mmol/L 12/15/2024 11:55 PM EDT [facility] Anion Gap 12 6 - 16 mmol/L 12/15/2024 11:55 PM EDT [facility] Total Calcium, Plasma 9.1 8.9 - 10.2 mg/dL 12/15/2024 11:55 PM EDT [facility] Total Protein 7.1 6.3 - 7.9 g/dL 12/15/2024 11:55 PM EDT [facility] Albumin, Plasma 3.2(L) 3.5 - 5.2 g/dL 12/15/2024 11:55 PM EDT [facility] AST, Plasma 16 10 - 35 U/L 12/15/2024 11:55 PM EDT [facility] ALT, Plasma 8(L) 10 - 35 U/L 12/15/2024 11:55 PM EDT [facility] Alkaline Phosphatase, Plasma 85 46 - 142 U/L 12/15/2024 11:55 PM EDT [facility] Total Bilirubin, Plasma 0.5 0.2 - 1.1 mg/dL 12/15/2024 11:55 PM EDT [facility] eGFRcr 39.4 mL/min/1.7 3m*2 12/15/2024 11:55 PM EDT [facility] Comment:Reported eGFRcr in m L/min/1.73m2 is based the CKD-EPI 2020 equation that does not use a race coefficient. Blood Venous blood specimen / Unknown Venipuncture / Unknown 12/15/2024 11:18 PM EDT 12/15/2024 11:23 PM EDT us Balwinder Lock MD LAB BLOOD ORDERABLES Final Resul t [facility] [address] [place] [address] * XR Chest 1 View (12/15/2024 10:01 [...] ECG Atrial Rate 95 BPM MUSE ECG MO Interval 126 ms MUSE ECG QRSD Interval 86 ms MUSE ECG QT Interval 366 ms MUSE ECG QTC Interval 459 ms MUSE ECG P Graford 75 degrees MUSE ECG R Graford 9 degrees MUSE ECG T Wave Graford 67 degrees MUSE ECG Diagnosis Sinus rhythm [...] mg, Oral, Every evening, First dose on 12/16/24 at 1700, Until Discontinued, Routine Given 12/21/2024 [...] if any blood seen in tubing. Tiotropium [place] Monohydrate (Spiriva Respimat) 2.5 MCG/ACT inhaler 2 [...] Perez RN)1716 (New Bag - Provider: Daphnie Perez, JOSE MARTIN) 0105 (New Bag - Provider: Rufus Florez, JOSE MARTIN)0941 (New Bag - Provider: Emily Vera RN)1752 (New Bag - Provider: Emily Vera RN) 0159 (New Bag - Provider: Rufus Florez RN)0918 (New Bag - Provider: Quentin Montoya, JOSE MARTIN) cetirizine (ZyrTEC) tablet 10 mg 10 mg, Oral, Daily, First dose on Thu12/16/24 at 0900, Until Discontinued, Routine 0955 (Given - Provider: Daphnie Perez RN) 0941 (Given - Provider: Emily Vera RN) 0917 (Given - Provider: Quentin Montoya, JOSE MARTIN) dilTIAZem CD (Cardizem CD) 24 hr capsule [...] Emily Vera RN) 0916 (Given - Provider: Quetnin Montoya RN) furosemide (Lasix) tablet 40 mg 40 mg, Oral, Daily, First dose on Thu12/21/24 at 0900, Until Discontinued, Routine 0941 (Given - Provider: Emily Vera RN) 0917 (Given - Provider: Quentin Montoya RN) gabapentin (Neurontin) capsule 400 mg 400 mg, Oral, 3 times daily, First dose on Thu12/19/24 at 1600, Until Discontinued 09 (Given - Provider: Daphnie Perez RN)171 (Given - Provider: Daphnie Perez RN - Comment: cluster)2028 (Given - Provider: Rufus Florez RN) 09 (Given - Provider: Emily Vera RN)175 (Given [...] Florez RN - Reason: Order parameters not met)211 (Not Given - Provider: Rufus Florez RN - Reason: Order parameters not met) 0202 (Not Given - Provider: Rufus Florez RN - Reason: Order parameters not met) levETIRAcetam (Keppra) tablet 1,000 mg 1,000 mg, Oral, 2 times daily, First dose on Thu12/16/24 at 2100, Until Discontinued, Routine 0955 (Given - Provider: Daphnie Perez RN)2028 (Given - Provider: Rufus Florez RN) 0941 (Given - Provider: Emily Vera RN)212 (Given - Provider: Rufus Florez RN) 0916 [...] Discontinued, Routine 0955 (Given - Provider: Daphnie Perez, JOSE MARTIN)171 (Given - Provider: Daphnie Perez RN - Comment: cluster)2028 (Given - Provider: Rufus Florez RN) 0941 (Given - Provider: Emily Vera, JOSE MARTIN) metoprolol tartrate (Lopressor) tablet 50 mg 50 mg, Oral, 3 times daily, First dose (after last modification) on Thu12/21/24 at 1600, Until Discontinued, Routine 1752 (Given - Provider: Emily Vera RN - Comment: cluster care)2120 (Given - Provider: Rufus Florez, JOSE MARTIN) 0917 (Given - Provider: Quentin Montoya RN)1600 (Canceled Entry - Provider: Automatic Discharge Provider - Comment: Automatically canceled at discontinue of medication order) mometasone-formoterol (Dulera 200) 200-5 MCG/ACT inhaler 2 puff(Linked Group 1) 2 puff, Inhalation, 2 times daily, First dose on Thu12/16/24 at 0900, Until Discontinued 0956 (Given - Provider: Daphnie Perez RN)2031 (Given - Provider: Rufus Florez RN) 0939 (Given - Provider: Emily Vera RN)2121 (Given - Provider: Rufus Florez RN) 0920 (Given - Provider: Quentin Montoya, JOSE MARTIN) montelukast (Singulair) tablet 10 mg [...] RN) 0941 (Given - Provider: Emily Vera RN)2122 (Given [...] Order changed) 0942 (Given - Provider: Emily Vera, RN)212 (Given - Provider: Rufus Florez, JOSE MARTIN) 0919 (Given - Provider: Quentin Montoya, JOSE MARTIN) Tiotropium [place] Monohydrate (Spiriva Respimat) 2.5 MCG/ACT inhaler 2 puff(Linked Group 1) 2 puff, Inhalation, Daily, First dose on Thu12/16/24 at 0900, Until Discontinued 0956 (Given - Provider: Daphnie Perez, JOSE MARTIN) 0941 (Given - Provider: Emily Vera, JOSE MARTIN) 0920 (Given - Provider: Quentin Montoya, RN) Continuous Medication Order 12/20/2024 12/21/2024 12/22/2024 [...] JOSE MARTIN)1917 (New Bag - Provider: Rufus Florez, JOSE MARTIN)2015 (Rate/Dose Verify - Provider: Rufus Florez RN) 0150 (New Bag - Provider: Rufus Florez RN)0400 (Rate/Dose Verify - Provider: Rufus Florez, JOSE MARTIN)0719 (Handoff - Provider: Rufus Florez, JOSE MARTIN)0933 (New Bag - Provider: Emily Vera, JOSE [...] PRN, Starting on 12/19/24 at 1437, Until Thu12/22/24 at 1743, Routine, anxiety ipratropium-albuterol (Duo-Neb) 0.5-2.5 mg/3 mL nebulizer solution 3 mL 3 mL, Nebulization, Every 6 hours PRN, Starting on Thu12/16/24 at 0631, Until Corrina 12/22/24 at 1743, Routine, shortness of breath, wheezing oxyCODONE (Roxicodone) immediate release tablet 10 mg(Linked Group 4) 10 mg, Oral, Every 4 hours PRN, Starting on Thu12/17/24 at 1153, Until Corrina 12/22/24 at 1743, [...] PRN, Starting on Thu12/16/24 at 0625, Until Corrina 12/22/24 at 1743, Routine, nausea, vomiting sodium chloride 0.9 % flush 10 mL 10 mL, Intravenous, Every 1 hour PRN, Starting on Thu12/19/24 at 0005, Until Corrina 12/22/24 at 1743, Routine, Flush Before and After EVERY dose of medication. sodium chloride 0.9 % flush 10 mL(Linked Group 2) 10 mL, Intravenous, As needed, Starting on Thu12/20/24 at 1520, Until Corrina 12/22/24 at 1743, Routine, line care sodium chloride 0.9 % flush 20 mL 20 mL, Intravenous, Every 1 hour PRN, Starting on Thu12/19/24 at 0005, Until Corrina 12/22/24 at 1743, Routine, After blood draws and if any blood seen in tubing. 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
--- OUTSIDE RECORDS SUMMARY | 2024-12-16 13:31 | XMS_ITS | Encounter Summary ---
Author Organization Healthcare Address [address] [place] [address] Care Team Providers Care Appeals Nurse Name Role Phone Laurie Gutierrez MD Primary Care Provider [phone] Joshua Martínez MD Unavailable Sabine Morales ELECTION ASSISTANT Unavailable Unavailable Reason for Visit * Auth/Cert (Routine) Specialty Diagnoses / Procedures Referred By Contac t Referred To Contact Diagnoses Dyspnea History of lung cancer Atrial fibrillation with RVR (CMS/HCC) Incisional infection Multiple subsegmental pulmonary emboli without acute cor pulmonale (CMS/HCC) Ry Stewart MD [address] [place] [address] Phone: tel: fax: PAV H Inpatient [address] [place] [address] Phone: tel: Referral ID Status Reason Start Date Expiration Date Visits Re quested Visits Authorized [id number] 1 1 Encounter Details Date Type Department Care Team (Late st Contact Info) Description 12/16/2024 1:31 PM EDT Anesthesia Event [facility] A OPERATING ROOM [address] [place] [address] Lavon Garcia MD [address] [facility] [address] [place] [address] Kasey Lock, RACHEL [address] [facility] [address] [place] [address] Anesthesia Record Procedure Summary Procedure Name Responsible [...] Hussein ETT Placement Date: 06/11; Placement Time: 134 (created via procedure documentation); Mask Ventilation: 1; [...] 12/16/24 1340 by Maikol Ferguson DO 12/16/24 142 by Maikol Ferguson DO documented in this [...] living in a fpc (including now)? No 12/16/2024 CAGE ASSESSMENT Answer [...] drink first t laurie in the morning (EYE-TIME STUDY TECHNICIAN) to steady your nerves or to [...] DO - 12/16/2024 2:29 PM EDT Patient: [facility] Anesthesia Type: general Vitals Value Taken Time [...] portions of the procedure(s) and immediately available [facility] services the entire duration. See resident note for details. * Anesthesia Preprocedure Evaluation - Lavon Garcia MD - 12/16/2024 7:44 AM EDT Images from the original note were not included. Procedure Information Date/Time: 12/16/24 1505 Procedure: IRRIGATION AND DEBRIDEMENT, WOUND (Left: Head) Location: [facility]-A OR Cl[facility] / GIGI OR Surgeons: Abhilash Bangura MD [...] depression, seizure, DMII On heparin drip from 529 to 729. Mag 1.0, received 4g IV, recheck pending [...] mg, Oral, Every 6 hours scheduled, Under [facility] law, monthly prescriptions (30 days) can be refilled at 25 days and three-month prescriptions (90 days) at 80 days. Please contact the insurance company with questions if refills are denied. atorvastatin (LIPITOR) 40 mg, Every evening Yaalddr-Nmwoyuaugwj-Kmxjbdmxal (Breztri Aerosphere) 160-9-4.8 MCG/ACT aerosol 2 puffs, [...] 399=12units max of 36units daily nystatin (Mycostatin) 834833 UNIT/GM powder Apply on bottom 2 times [...] ABG No results found for: PHART , IEJ6CWA , PO2ART , SO2ART , BEART , QHH6RBJ , HCTART , SODIUMART , POTASSIUMART , POCTCL , POCGLU , IONCALART , LACTATE Lab Results Component Value Date HCTSYR 23.4 (L) 12/15/2024 KSYR 3.8 12/15/2024 CLSYR 100 12/15/2024 GLUSYR 126 (H) 12/15/2024 CAION 4.7 12/15/2024 EKG Encounter Date: 12/15/24 ECG Adult Result Value EKG DIAGNOSIS CLASS Abnormal Ventricular Rate 150 QRSD Interval 86 QT Interval 314 QTC Interval 496 R [place] 9 T Wave [place] 62 Diagnosis Atrial fibrillation with rapid ventricular [...] is no recent study available for direct pajo-uk-jqke comparison. 12/16/[address] Angio Pulmonary Embolism [...] Plan ASA 3 Plan was reviewed with: STEMHOLE BORER Anesthesia technique(s) discussed with the patient/family: general [...] of anticoagulation therapy. Does not have past ME. hypertension: is well controlled. Does not have [...] a few months, had heparin drip from 7441-4859 this AM Endocrine/Metabolic: diabetes mellitus type 2. 6.3 Does not have thyroid disorder. [1] Allergies Allergen Reactions Cephalexin Nausea and Vomiting Lisinopril Cough Meloxicam Nausea [2] atorvastatin, 40 mg, Oral, q PM cetirizine, 10 mg, Oral, Daily insulin glargine-yfgn, 5 Units, Subcutaneous, Nightly magnesium sulfate, 4 g, Intravenous, q4h metoprolol tartrate, 25 mg, Oral, TID Tiotropium [place] Monohydrate, 2 puff, Inhalation, Daily AND mometasone- [...] PLACEMENT N/A Ear Surgery Eustachian Tube from [employer] [5] Social History Tobacco Use Smoking status: [...] [facility] st Contact Info) Description 01/05/2025 1:00 PM EDT Office Visit [facility] [address] [place] [address] Lia Barnes APRN [address] [address] 01/10/2025 9:00 AM EDT Clinical Support [facility] [address] [facility], [address]nd [place] [address] 01/10/2025 9:40 AM EDT Office Visit [facility] [address] [facility], [address]nd [place] [address] Satnam Colvin MD [address] [facility] [address] [place] [address] 01/10/2025 12:00 PM EDT Appointment [facility] 1 [address] [place] [address] 01/11/2025 3:30 PM EDT Appointment [facility] 1 [address] [place] [address] 01/12/2025 3:30 PM EDT Appointment [facility] 2 [address] [place] [address] 01/19/2025 9:20 AM EDT Appointment P[facility] S Radiology [address], [address]st [place] [address] 01/19/2025 10:45 AM EDT Office [facility] [place] [facility] [address], [address] [place] [address] Abhilash Bangura MD [address] [place] [address] 01/26/2025 4:30 PM EDT Office Visit [facility] [address] [facility] [place] [address] Lia Barnes, CYLINDER BATCHER [address] [facility] [address] [place] [address] 03/08/2025 1:00 PM EDT Office Visit [facility] [place] [address] [place] [address] Teresita Oconnell MD [address] [place] [address] documented as of this encounter Procedures Procedure Name Priority Date/Time Associated Diagnosis Comments PB ANESTHESIA PLACEHOLDER Routine 12/16/2024 1:40 PM EDT [place] AN ELECTIVE ENDOTRACHEAL AIRWAY Routine 12/16/2024 1:40 PM EDT documented in this encounter Results * [place] AN ELECTIVE ENDOTRACHEAL AIRWAY, PB ANESTHESIA PLACEHOLDER [...] (+) ETCO2, Atraumatic, No change to dentition. 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, ANIMAL CARE SUPERVISOR 10/26/2024 10/31/2024 Assessment Noted Time PHQ-9 Depression Total Score: 0 09/01/19 25 3:26 PM EDT A fall risk assessment has been complete d for the patient 11/29/2024 1:14 PM EDT A Body Mass Index follow-up plan has been documented for the patient 12/22/2024 2:34 PM EDT documented as of this encounter Care Teams Appeals Nurse Relationship Specialty Start Date End Date Laurie Gutierrez MD [address] [place] [address] PCP - General 12/09/23 Joshua Martínez MD [address] [place] [address] Consulting Physician Radiation Oncology 09/19/24 Sabine Morales LPN TCM Nurse 11/23/24 12/23/24 documented as of this encounter
--- OUTSIDE RECORDS SUMMARY | 2024-12-21 04:00 | XMS_ITS ---
Author Organization [facility] [place] [address] Care Team Providers Care Sponge Maker Name Role Phone MUNA DEY Unavailable [phone] Muna Dey MD Unavailable Unavailable Yamilet Cloeman Unavailable [phone] REASON FOR VISIT 1 week f/u IN HOP Encounters Encounter Location Date Provider Diagnosis [facility] [place] [address] [place] [address] 12/21/2024 Yamilet Coleman Plan Of Treatment Next Appt Details Provider Name:Yamilet heath, 02/27/2025 10:30:00 AM, [address], [place], [address], Progress Notes * Teresa URBINADOB: [birth year] (64 yo F)Acc No.[id number]:12/21/2024 Progress Notes Patient: Isis Teresa REY Provider: Carolyn Coleman :1960 A ge:64 Y S ex:Female Date:12/21/2024 Address:[address] [place] [address], [place] [id number] Subjective: * Chief Complaints: * 1 . 1 week f/u IN HOP. * Medical History: Objective: * Vitals: Assessment: Plan: * Treatment: * * Electronic signature of CAPO Ellis on 01/04/2025 at 11:37 AM EDT Sign off status: Pending * Provider: Carolyn Coleman Date: 0 12/21/2024 Generated for Chato gonzalez/Nica/Edwardo on: 0 01/04/2025 11:37 AM EDT
--- OUTSIDE RECORDS SUMMARY | 2024-12-31 12:55 | XMS_ITS | Encounter Summary ---
Author Organization Healthcare Address [address] [place] [address] Care Team Providers Care Transformer Inspector Name Role Phone Lauire Gutierrez MD Primary Care Provider [phone] Joshua Martínez MD Unavailable Reason for Visit * Reason Comments Vascular Access Problem Encounter Details Date Type Department Care Team ([facility] st Contact Info) Description 12/31/2024 12:55 PM EDT - 12/31/2024 4:03 PM EDT Emergency [facility] A Emergency Department [address] [place] [address] Juwan Da Silva MD [address] [place] [address] Maribeth Mays DO [address] [place] [address] PIC line (peripherally inserted central catheter) flush (Primary Dx) Discharge Disposition: Home or Self [...] living in a intermediate (including now)? No 12/16/2024 CAGE ASSESSMENT Answer [...] drink first t laurie in the morning (EYE-BUGGY LADLE TENDER) to steady your nerves or to [...] Sign Reading Time Taken Comments Blood Pressure 112/71 12/31/2024 3:59 PM EDT Pulse 75 12/31/2024 3:59 PM EDT Temperature 36.4 C (97.6 F) 12/31/2024 3:59 PM EDT Respiratory Rate 18 12/31/2024 3:59 PM EDT Oxygen Saturation 95% 12/31/2024 3:59 PM EDT Inhaled Oxygen Concentration - - Weight - - Height - - Body Mass Index - - documented in this encounter Functional Status * Calculated C-SSRS Risk Score (Lifetime/Recent) Answer Date of Assessment Author No Risk Indicated 12/31/2024 1:20 PM EDT StagerJanette RN * Question Answer Date of Assessment Author 1. Wish to be (Past 1 Month) No 025 1:20 PM EDT MarybelrJanette RN 2. Non-Specific Active Suici radha Thoughts (Past 1 Month) No 12/31/2024 1:20 PM EDT Marely Yoon RN 6. Suicidal Behavior (Lifetime) No 1:20 PM EDT MarybelrJanette RN documented as of this encounter Discharge Instructions * Discharge Instructions* Marva Pickering DO - 12/31/2024 3:52 PM EDT You were seen in the emergency department today for PICC line noises/flush. Please follow up with your primary care provider within the next 1-2 days regarding this visit, your current symptoms. Follow up with any previously scheduled medical appointments. Please return to the emergency department if your condition worsens, you experience fevers, intractable vomiting, severe headache, chest pain, shortness of breath or any other concern. documented in this encounter Medications at Time of Discharge acetaminophen (Tylenol) 325 MG tablet Take 2 tablets by mouth every 6 hours. Under [place] law, monthly prescriptions (30 days) can be refilled at 25 days and three-month prescriptions (90 days) at 80 days. Please contact the insurance company with questions if refills are denied. 100 tablet atorvastatin (Lipitor) 40 MG tablet Take 1 [...] 399=12units max of 36units daily nystatin (Mycostatin) 359729 UNIT/GM powder Apply on bottom 2 times [...] as of this encounter Miscellaneous Notes * ED Triage Notes - Belle Cortez RN - 12/31/2024 12:30 PM EDT Patient states the PICC line in her left arm has been making weird noises that sound like whistlingsince earlier this morning. documented in this encounter Plan of Treatment Upcoming Encounters Date Type Department Care Team (Late st Contact Info) Description 01/05/2025 1:00 PM EDT Office Visit [facility] [address] [place] [address] Lia Barnes, CMS EXPERT [address] [facility] [address] [place] [address] 01/10/2025 9:00 AM EDT Clinical Support Pav [facility] Head[facility] Neck [facility] Respiratory [address] [facility], 2nd [place] [address] 01/10/2025 9:40 AM EDT Office Visit [facility] Head[facility]ck [facility] Respiratory [address] [facility], 2nd [place] [address] Satanm Colvin MD [address] [facility] [address] [place] [address] 01/10/2025 12:00 PM EDT Appointment [facility]fusion [facility] 1 [address] [place] [address] 01/11/2025 3:30 PM EDT Appointment [facility] 1 [address] [place] [address] 01/12/2025 3:30 PM EDT Appointment [facility] 2 [address] [place] [address] 01/19/2025 9:20 AM EDT Appointment P[facility] S Radiology [address], [address]st [place] [address] 01/19/2025 10:45 AM EDT Office Visit [place] [facility] [address], [address] [place] [address] Abhilash Bangura MD [address] [place] [address] 01/26/2025 4:30 PM EDT Office Visit [facility] [address] [place] [address] BarnesLia Viktor, CMS EXPERT [address] [facility] [address] [place] [address] 03/08/2025 1:00 PM EDT Office Visit [facility] [place] [address] [place] [address] Teresita Oconnell MD [address] [place] [address] documented as of this encounter Procedures Procedure Name Priority Date/Time Associated Diagnosis Comments XR CHEST 1 VIEW STAT 12/31/2024 1:49 PM EDT documented in this encounter Results * XR Chest 1 View (12/31/2024 1:49 PM EDT) Anatomical Region Laterality Modality Chest Digital Radiogra phy Impressions 12/31/2024 1:41 PM EDT Left PICC terminates within upper right atrium. Retraction for [address] it close to superior cavoatrial junction. CRITICAL RESULT: No. COMMUNICATION: Per this written report. Drafted by Berta Richardson MD on 12/31/2024 1:39 PM Final report signed by Berta Richardson MD on 12/31/2024 1:41 PM Narrative 12/31/2024 1:41 PM EDT CLINICAL INDICATION: PICC line placement TECHNIQUE: Single frontal radiographic view of the chest COMPARISON: December 18, 2024 FINDINGS: Left PICC terminates with upper right atrium. No pneumothorax. Residual linear focus of ossification within right apex, similar to the prior. No acute airspace disease remaining lungs. No pleural effusions or pneumothorax. Stable cardiac silhouette. No acute osseous findings. Procedure Note Berta Richardson MD - 12/31/2024 CLINICAL INDICATION: PICC line placement TECHNIQUE: Single frontal radiographic view of the chest COMPARISON: December 18, 2024 FINDINGS: Left PICC terminates with upper right atrium. No pneumothorax. Residuallinear focus of ossification within right apex, similar to the prior. Noacute airspace disease remaining lungs. No pleural effusions orpneumothorax. Stable cardiac silhouette. No acute osseous findings. IMPRESSION: Left PICC terminates within upper right atrium. Retraction for 2 cm shouldplace it close to superior cavoatrial junction. CRITICAL RESULT: No. COMMUNICATION: Per this written report. 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 12/16/2024 12/22/2024 Assessment Noted Time PHQ-9 Depression Total Score: 0 09/01/19 25 3:26 PM EDT A fall risk assessment has been complete d for the patient 11/29/2024 1:14 PM EDT A Body Mass Index follow-up plan has been documented for the patient 12/23/2024 8:17 AM EDT documented as of this encounter Care Teams Transformer Inspector Relationship Specialty Start Date End Date Laurie Gutierrez MD [address] [place], [place] [phone] PCP - General 12/09/23 Joshua Martínez MD [address] [place] [address] Consulting Physician Radiation Oncology 09/19/24 documented as of this encounter
--- OUTSIDE RECORDS SUMMARY | 2025-01-03 09:40 | XMS_ITS | Encounter Summary ---
Author Organization Healthcare Address [address] 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 Never 01/03/2025 Q2: How many drinks containi ng alcohol do you have on a typical day when you are drinking? Patient does not drink Q3: How often do you have si x or more drinks on one occasion? Never 01/03/2025 Overall Financial Resource Strain (CARDIA) Answe r [...] time in the past 12 m [facility], were you homeless or living in a half-way (including now)? No 12/16/2024 CAGE ASSESSMENT Answer [...] drink first t laurie in the morning (EYE-ELECTRICIAN TECHNICIAN) to steady your nerves or to get rid of a hangover? 0 12/02/2024 CAGE Questionnaire Score 0 025 Utilities Answer Date Recorded In the past 12 months has th e [employer], gas, oil, or water company threatened to [...] Sign Reading Time Taken Comments Blood Pressure 92/63 01/03/2025 9:27 AM EDT Pulse 75 01/03/2025 9:27 AM EDT Temperature 36.7 C (98.1 F) 01/03/2025 9:27 AM EDT Respiratory Rate 14 01/03/2025 9:27 AM EDT Oxygen Saturation 94% 01/03/2025 9:27 AM EDT Inhaled Oxygen Concentration - - Weight - - Height - - Body Mass Index - - documented in this encounter Functional Status * AUDIT-C Score Answer Date of Assessment Author 0 01/03/2025 9:24 AM EDT Kasandra Riley * Question Answer Date of Assessment Author Q1: How often do you have a drink containing alcohol? Never 01/03/2025 9:24 AM EDT Kasandra Riley Q2: How many drinks containing alcohol do you have on a typical day when you are drinking? Patient does not drink 01/03/2025 9:24 AM EDT Kasandra Riley Q3: How often do you have six or more drinks on one occasion? Never 01/03/2025 9:24 AM EDT Kasandra Riley documented as of this encounter Miscellaneous Notes * Progress Notes - Satnam Colvin MD - 01/03/2025 9:40 AM EDT Medical Oncology Clinic Note Patient Name: Teresa Rivera Date of : 1960 64 y.o. Referring Physician:No referring provider defined for this encounter. Encounter Date: 01/03/2025 Chief Complaint: Chief Complaint Patient presents with [...] again had 2 hospitalizations since last visit. Noted below. Since discharge on 12/22 she has been very fatigued with decreased activity. Spends most of the time sittingon a couch or lying down. Walks with the bathroom and that is it. She also has some tremors but no seizures. He is on antibiotics for another 4 weeks. No fevers or chills. Has nausea and decreased appetite. No vomiting. Current Treatment Regimen: Carbo etoposide with whole-brain radiation Current Treatment Plan History: Carbo/Etop/Atezo C1: 10/04-10/06/24 Oncology History: - initially diagnosed with [id number], stage IIIA limited stage of the right [...] and improved. Was also treated for oral thrush.She was also had paroxysmal atrial fibrillation. Received filgrastim in the hospital and neutropenia resolved. 10/25/2024 to 10/31/2024-hospital readmission for weakness, shortness [...] was changed to 50 twice daily short-acting [id number] for seizures while in the infusion room on 11/29. CT head with some subdural head. MRI with no significant change. Neurosurgery recommended Keppra. LP done no definite evidence of infection. Low-grade fever. Also had acute kidney injury. 12/15/2024 to 12/22/2024-presented for infection on the craniotomy site. Found to have well bilateral pulmonary embolism. Started on heparin drip and then Lovenox for 2 weeks with plans to start apixaban 12/30. IV antibiotics until mid Jan. Also had rapid AFib for which metoprolol dose was increasedan added low- dose Cardizem. Past Medical, Surgical, Family and Social History: Past Medical History[1] Surgical History[2] Family History[3] Social History[4] Allergies: Cephalexin, Lisinopril, and Meloxicam Medications: Current Medications[5] Review of Systems: A comprehensive 14 point review of systems was performed, noted to be negative with the pertinent positives documented in the HPI section of this note. Vital Signs: Visit Vitals BP 92/63 (BP Location: Right arm) Pulse 75 Temp 36.7 ??C (98.1 ??F) (Oral) Resp 14 Physical Examination: GENERAL: Appears more fatigued SKIN: . No rashes or lesions. EYES: conjunctiva clear, ENT: intact, no apparent injury HEAD/NECK: neck supple RESPIRATORY: non-labored respirations CARDIOVASCULAR: no peripheral edema GASTROINTESTINAL: soft, non-tender, non-distended, MUSCULOSKELETAL: Mild muscle wasting noted, no muscle spasms noted NEUROLOGICAL: alert and oriented x3, no focal deficits slow PSYCHOLOGICAL: Normal mood. Labs, Imaging, Pathology: Lab Results Component Value Date WBC 8.22 01/02/2025 RBC 3.01 (L) 01/02/2025 HGB 9.2 (L) 01/02/2025 HCT 29.9 (L) 01/02/2025 MCV 99 (H) 01/02/2025 MCV 93 08/25/2013 MCHC 30.8 01/02/2025 RDW 20.6 (H) 01/02/2025 PLT 161 01/02/2025 MPV 10.5 01/02/2025 EOS 3 08/25/2013 Lab Results Component Value Date BUN 17 01/02/2025 CL 110 (H) 12/22/2024 NA 144 12/22/2024 K 3.0 (L) 12/22/2024 CA 9.6 08/25/2013 TP 6.0 (L) 12/20/2024 AST 17 12/20/2024 ALT 6 (L) 12/20/2024 I visualized the recent imaging and discussed [...] Uriostegui MD on 09/01/2024 2:56 AM === 04/16/25 === MR HEAD W AND WO IV [...] Status post broad-spectrum antibiotics and improved. - Hospitalization in November for seizures. Also acute kidney injury -End November to December 22 for craniotomy site infection and also found to have bilateral pulmonary embolism. - be antibiotics until around mid January. - Worsening fatigue, decline in functional status as well as memory impairment and cognition. PLAN Hold chemotherapy today-delay by 1 week. Decrease Keppra from 1000 mg twice daily to 750 mg twice daily # Seizures MRI of the head 12/02-with no evidence of new disease. There is a residual cleft him enhancing tissue along the left falx which may be residual tumor. Started on Keppra 1000 mg twice daily. Plan to decrease it to 750 mg twice daily today. # Chemotherapy toxicity -febrile neutropenia-sepsis with acute hypoxic respiratory failure. Grade 3-requiring hospitalization. Nausea and Anorexia-probably disease related and not chemotherapy related. Plan to start on olanzapine 5 mg at bedtime. # Medical comorbidities Diabetes mellitus type 2-was [...] toxicities in patients with cancer. I spent 55 minutes on this patient today which includes reviewing hospital records reviewing images, labs, coordinating care and, 20 minutes [id number] encounter. MD GIGI Man [facility] CC HEAD, NECK & RESPIRATORY [address] [facility] [address] [facility]. [1] Past Medical History: Diagnosis Date A-fib (CMS/HCC) Anxiety Brain tumor (CMS/HCC) Chemotherapy-induced nausea and vomiting 08/28/2023 COPD (chronic obstructive pulmonary disease) (CMS/HCC) Depression Heart failure Hyperlipidemia Hypertension Osteoarthritis Pneumonia Small cell lung cancer (CMS/HCC) Type 2 diabetes mellitus [2] Past Surgical History: Procedure Laterality Date BRAIN SURGERY TUBAL LIGATION N/A Tubal Ligation from [facility] TYMPANOSTOMY TUBE PLACEMENT N/A Ear Surgery Eustachian Tube from [facility] [3] Family History Problem Relation Name Age [...] by mouth every 6 hours. Under [place] law, monthly prescriptions (30 days) can be refilled at 25 days and three-month prescriptions (90 days) at80 days. Please contact the insurance company with questions if refills are denied., Disp: 100 tablet, Rfl: 0 atorvastatin (Lipitor) 40 MG tablet, Take 1 tablet by mouth every evening., Disp: , Rfl: Lrinzmi-Gyizwhezdka-Dtzxossoar (Breztri Aerosphere) 160-9-4.8 MCG/ACT aerosol, Inhale 2 puffs 2 (two) times a day., Disp: , Rfl: Calcium Carb-Cholecalciferol 600-10 MG-MCG tablet, Take 1 tablet by mouth daily., Disp: , Rfl: cefepime (Maxipime) 1 g injection, Infuse 6 gm continuously every 24 hours. Mix per institutional policy., Disp: 1 each, Rfl: 0 cetirizine (ZyrTEC) 10 MG tablet, Take 1 tablet by mouth daily., Disp: , Rfl: dilTIAZem CD (Cardizem CD) 120 MG 24 hr capsule, Take 1 capsule by mouth nightly., Disp: 30 capsule, Rfl: 1 enoxaparin (Lovenox) 100 MG/ML solution prefilled syringe, Inject 1 mL under the skin 2 times a dayfor 9 days., Disp: 17 each, Rfl: 0 ferrous sulfate 325 (65 Fe) MG tablet, [...] as needed., Disp: , Rfl: insulin glargine (Lantus SoloStar) 100 UNIT/ML injection pen, Inject 25 Units under the skin nightly., Disp: , Rfl: levETIRAcetam (Keppra) 1000 MG tablet, Take 1 tablet by mouth 2 times a day., Disp: 60 tablet, Rfl:5 magnesium oxide (Mag-Ox) 400 MG tablet, Take 1 tablet by mouth 2 times a day. Hold for diarrhea, Disp: 60 tablet, Rfl: 1 metFORMIN (Glucophage) 1000 MG tablet, Take 1 tablet by mouth 2 times a day with meals., Disp: , Rfl: metoprolol tartrate (Lopressor) 50 MG tablet, Take 1 tablet by mouth 3 times a day., Disp: 90 tablet, Rfl: 1 montelukast (Singulair) 10 MG tablet, Take 1 tablet by mouth nightly., Disp: , Rfl: NovoLOG FLEXPEN 100 UNIT/ML injection pen, Sliding scale three times a day with corrections and meals; BS 150-199=2units; BS 200-249=4units; BS 250-229=6units; 300-349=8 units; 350-399=10 units; anything greater than 399=12units max of 36units daily, Disp: , Rfl: nystatin (Mycostatin) 594269 UNIT/GM powder, Apply on bottom 2 times [...] dinner. Take with food., Disp: , Rfl: SITagliptin (Januvia) 50 MG tablet, Take 1 tablet by mouth every morning., Disp: , Rfl: triamterene-hydrochlorothiazide (Maxzide-25) 37.5-25 MG tablet, Take 1 tablet by mouth every morning., Disp: , Rfl: Vitamin B-12 ER 1000 MCG tablet controlled-release, Take 1 tablet by mouth Daily., Disp: , Rfl: documented in this encounter Plan of Treatment Upcoming Encounters Date Type Department Care Team (Late st Contact Info) Description 01/05/2025 1:00 PM EDT Office Visit [facility] [address] [place] [address] Lia Barnes, VEHICLE MAINTENANCE TECHNICIAN [address] [facility] [address] [place] [address] 01/10/2025 9:00 AM EDT Clinical Support Pav CC Head, Neck & Respiratory [address] [facility]nd [place] [phone] 01/10/2025 9:40 AM EDT Office Visit Pav [facility] Head, Neck & Respiratory [address] [facility]nd [place] [phone] Satnam Colvin MD [address] [facility] Nuria Degroot [facility] [address] [place] [phone] 01/10/2025 12:00 PM EDT Appointment [facility] [address] [place] [phone] 01/11/2025 3:30 PM EDT Appointment [facility] [address] [place] [phone] 01/12/2025 3:30 PM EDT Appointment [facility] [address] [place] [phone] 01/19/2025 9:20 AM EDT Appointment [facility] S Radiology [address] [place] [phone] 01/19/2025 10:45 AM EDT Office Visit [facility] [address], [address] [place] [address] Abhilash Bangura MD [address] [place] [phone] 01/26/2025 4:30 PM EDT Office Visit [facility] [address] [facility] [place] [address] Lia Barnes, VEHICLE MAINTENANCE TECHNICIAN [address] [facility] [address] [place] [address] 03/08/2025 1:00 PM EDT Office Visit [facility] [place] [address] [place] [phone] Teresita Oconnell MD [address] [place] [address] Scheduled Orders Name Type Priority Associated Diagnoses Orde r Schedule CBC and Differential Lab Routine Extensive stage primary small cell carcinoma of lung Expected: 01/03/2025 (Approximate), Expires: 01/03/2026 Comprehensive Metabolic Panel, Plasma Lab Routine Extensive stage primary small cell carcinoma of lung Expected: 01/03/2025 (Approximate), Expires: 01/03/2026 Magnesium, Plasma Lab Routine Extensive stage primary small cell carcinoma of lung Expected: 01/03/2025 (Approximate), Expires: 01/03/2026 CBC and differential Lab Routine Extensive stage primary small cell carcinoma of lung Expected: 01/10/2025, Expires: 01/10/2026 Comprehensive metabolic panel Lab Routine Extensive stage primary small cell carcinoma of lung Expected: 01/10/2025, Expires: 01/10/2026 Magnesium Lab STAT Extensive stage primary small cell carcinoma of lung Expected: 01/10/2025, Expires: 01/10/2026 TSH reflex FT4 Lab Routine Extensive stage primary small cell carcinoma of lung Expected: 01/10/2025, Expires: 01/10/2026 documented as of this encounter Visit Diagnoses Diagnosis Extensive stage primary small cell carcinoma of lung- Primary Seizures (CMS/HCC) Other convulsions Chemotherapy-induced neutropenia (CMS/HCC) Drug induced neutropenia Encounter for antineoplastic chemotherapy Neoplastic (malignant) related fatigue Anorexia documented in this encounter Additional Health Concerns Infection Onset Date Last Indicated Resolved Time 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 12/16/2024 12/22/2024 Assessment Noted Time PHQ-9 Depression Total Score: 0 09/01/19 25 3:26 PM EDT A fall risk assessment has been complete d for the patient 01/03/2025 9:25 AM EDT A Body Mass Index follow-up plan has been documented for the patient 12/23/2024 8:17 AM EDT documented as of this encounter Care Teams Data Collector Relationship Specialty Start Date End Date Laurie Gutierrez MD [address] [place] [address] PCP - General 12/09/23 Joshua Martínez MD [address] [place] [phone] Consulting Physician Radiation Oncology 09/19/24 documented as of this encounter
[2025-01-04] VITALS (11 sets, daily range): BP systolic 104–144; BP diastolic 46–91; PULSE 62–72; RESP 14–19; TEMP 36.7–36.8; O2SAT 94–98; BMI 40.5
--- OUTSIDE RECORDS SUMMARY | 2025-01-04 11:36 | XMS_ITS | Encounter Summary ---
Author Organization Healthcare Address [address] [place] [address] Care Team Providers Care Civil Engineering Project Manager Name Role Phone Laurie Gutierrez MD Primary Care Provider [phone] Joshua Martínez MD Unavailable Encounter Details Date Type Department Care Team (Latest Contact Info) Description 12/31/2024 Travel Social History Tobacco Use Types Packs/Day [...] living in a jail (including now)? No 12/16/2024 CAGE ASSESSMENT Answer [...] drink first t laurie in the morning (EYE-LINE THERAPIST) to steady your nerves or to get rid of a hangover? 0 12/02/2024 CAGE Questionnaire Score 0 025 Utilities Answer Date Recorded In the past 12 months has th e [employer], gas, oil, or water company threatened [...] 1 Month) No 025 1:20 PM EDT Janette Yoon RN 2. Non-Specific Active Suici radha Thoughts (Past 1 Month) No 12/31/2024 1:20 PM EDT Marely Yoon RN 6. Suicidal Behavior (Lifetime) No 1:20 PM EDT Janette Yoon RN documented as of this encounter Plan of Treatment Upcoming Encounters Date Type Department Care Team (Late st Contact Info) Description 01/05/2025 1:00 PM EDT Office Visit [facility] [address] [place] [address] Lia Barnes, CORPORATE DIRECTOR [address] [facility] [address] [place] [address] 01/10/2025 9:00 AM EDT Clinical Support [facility] Head[facility] Neck [facility] Respiratory [address] [facility], [address]nd [place] [address] 01/10/2025 9:40 AM EDT Office Visit [facility] Res[facility] [address] [facility], [address]nd [place] [address] Satnam Colvin MD [address] [facility] [address] [place] [phone] 01/10/2025 12:00 PM EDT Appointment [facility] 1 [address] [place] [phone] 01/11/2025 3:30 PM EDT Appointment [facility] [address] [place] [phone] 01/12/2025 3:30 PM EDT Appointment [facility] [address] [place] [phone] 01/19/2025 9:20 AM EDT Appointment [facility] [address], [address] [place] [phone] 01/19/2025 10:45 AM EDT [facility] [address], [address] [place] [address] Abhilash Bangura MD [address] [place] [address] 01/26/2025 4:30 PM EDT Office Visit [facility] [address] [place] [address] Lia Barnes, CORPORATE DIRECTOR [address] [facility] [address] [place] [address] 03/08/2025 1:00 PM EDT Office Visit [facility] [place] 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 12/16/2024 12/22/2024 Assessment Noted Time PHQ-9 Depression Total Score: 0 09/01/19 3:26 PM EDT A fall risk assessment has been complete d for the patient 11/29/2024 1:14 PM EDT A Body Mass Index follow-up plan has been documented for the patient 12/23/2024 8:17 AM EDT documented as of this encounter Care Teams Civil Engineering Project Manager Relationship Specialty Start Date End Date Laurie Gutierrez MD [address] [place] [address] PCP - General 12/09/23 Joshua Martínez MD [address] [place] [address] Consulting Physician Radiation Oncology 09/19/24 documented as of this encounter
--- OUTSIDE RECORDS SUMMARY | 2025-01-04 11:36 | XMS_ITS | Encounter Summary ---
Author Organization Healthcare Address [address] [place] [address] Care Team Providers Care Writing Manager Name Role Phone Laurie Gutierrez MD Primary Care Provider [phone] Joshua Martínez MD Unavailable Encounter Details Date Type Department Care Team (Late st Contact Info) Description 12/26/2024 Lab Requisition [facility] 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 No 12/16/2024 CAGE ASSESSMENT Answer [...] drink first t laurie in the morning (EYE-DIRECTOR PRODUCT MANAGEMENT) to steady your nerves or to get [...] Description 01/05/2025 1:00 PM EDT Office Visit [address] [address] iLa Barnes, CONFIGURATION MANAGEMENT MANAGER [address] [facility] [address] [place] [address] 01/10/2025 9:00 AM EDT Clinical Support [facility] [address] [facility], 2nd [place] [address] 01/10/2025 9:40 AM EDT Office Visit [facility] [address] [facility], 2nd [place] [address] Satnam Colvin MD [address] [facility] Nuria Degroot [facility] [address] [place] [address] 01/10/2025 12:00 PM EDT Appointment [facility] 1 [address] [place] [address] 01/11/2025 3:30 PM EDT Appointment [facility] 1 [address] [place] [address] 01/12/2025 3:30 PM EDT Appointment [facility] 2 [address] [place] [address] 01/19/2025 9:20 AM EDT Appointment [facility] [address], 1st [place] [address] 01/19/2025 10:45 AM EDT Office Visit [place] [facility] [address], [address]st [place] [address] Abhilash Bangura MD [address] [place] [address] 01/26/2025 4:30 PM EDT Office Visit [facility] [address] [place], [place] [phone] Lia Barnes, CONFIGURATION MANAGEMENT MANAGER [address] [facility] [address] [place] [address] 03/08/2025 1:00 PM EDT Office Visit [facility] 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) Dyspnea, unspecified Secondary malignant neoplasm of brain (CMS/HCC) CBC WITH AUTO DIFFERENTIAL Routine 12/26/2024 10:50 AM EDT Infection following a procedure, other surgical site, initial encounter 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 acute cor pulmonale (CMS/HCC) Dyspnea, unspecified Secondary malignant neoplasm of brain (CMS/HCC) C-REACTIVE PROTEIN, PLASMA Routine 12/26/2024 10:50 AM EDT Infection following a procedure, other surgical site, initial encounter 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 acute cor pulmonale (CMS/HCC) Dyspnea, unspecified Secondary malignant neoplasm of brain (CMS/HCC) UREA NITROGEN, PLASMA Routine 12/26/2024 10:50 AM EDT Infection following a procedure, other surgical site, initial encounter 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 acute cor pulmonale (CMS/HCC) Dyspnea, unspecified Secondary malignant neoplasm of brain (CMS/HCC) documented in this encounter Results * (ABNORMAL) CBC and Differential (12/26/2024 10:50 AM EDT) WBC Count 9.35 3.70 - 10.30 10*3/uL LAB HEMATOLOGY METHOD 12/26/2024 12:34 PM EDT [facility] RBC Count 2.86(L) 3.90 - 5.20 10*6/uL LAB HEMATOLOGY METHOD 12/26/2024 12:34 PM EDT [facility] HGB 8.5(L) 11.2 - 15.7 g/dL LAB HEMATOLOGY METHOD 12/26/2024 12:34 PM EDT [facility] HCT 27.8(L) 34.0 - 45.0 % LAB HEMATOLOGY METHOD 12/26/2024 12:34 PM EDT [facility] Platelet Count 163 155 - 369 10*3/uL LAB HEMATOLOGY METHOD 12/26/2024 12:34 PM EDT [facility] MCV 97 79 - 98 fL LAB HEMATOLOGY METHOD 12/26/2024 12:34 PM EDT [facility] MCH 29.7 26.0 - 32.0 pg LAB HEMATOLOGY METHOD 12/26/2024 12:34 PM EDT [facility] MCHC 30.6(L) 30.7 - 35.5 g/dL LAB HEMATOLOGY METHOD 12/26/2024 12:34 PM EDT [facility] RDW 20.3(H) 11.5 - 14.5 % LAB HEMATOLOGY METHOD 12/26/2024 12:34 PM EDT [facility] MPV 11.1 8.8 - 12.5 fL LAB HEMATOLOGY METHOD 12/26/2024 12:34 PM EDT [facility] nRBC 0.0 <=0.0 per 100 WBCs LAB HEMATOLOGY METHOD 12/26/2024 12:34 PM EDT [facility] Differential Type Automated LAB HEMATOLOGY METHOD 12/26/2024 12:34 PM EDT [facility] Neutrophils % 73 % LAB HEMATOLOGY METHOD 12/26/2024 12:34 PM EDT [facility] Lymphocytes % 12 % LAB HEMATOLOGY METHOD 12/26/2024 12:34 PM EDT [facility] Monocytes % 9 % LAB HEMATOLOGY METHOD 12/26/2024 12:34 PM EDT [facility] Eosinophils % 4 % LAB HEMATOLOGY METHOD 12/26/2024 12:34 PM EDT [facility] Basophils % 1 % LAB HEMATOLOGY METHOD 12/26/2024 12:34 PM EDT [facility] Immature Granulocytes % 1 % LAB HEMATOLOGY METHOD 12/26/2024 12:34 PM EDT [facility] Neutrophils Absolute 6.87(H) 1.60 - 6.10 10*3/uL LAB HEMATOLOGY METHOD 12/26/2024 12:34 PM EDT [facility] Lymphocytes Absolute 1.14(L) 1.20 - 3.90 10*3/uL LAB HEMATOLOGY METHOD 12/26/2024 12:34 PM EDT [facility] Monocytes Absolute 0.81 0.30 - 0.90 10*3/uL LAB HEMATOLOGY METHOD 12/26/2024 12:34 PM EDT [facility] Eosinophils Absolute 0.34 0.00 - 0.50 10*3/uL LAB HEMATOLOGY METHOD 12/26/2024 12:34 PM EDT [facility] Basophils Absolute 0.10 0.00 - 0.10 10*3/uL LAB HEMATOLOGY METHOD 12/26/2024 12:34 PM EDT [facility] Immature Granulocytes Absolute 0.09(H) 0.00 - 0.06 10*3/uL LAB HEMATOLOGY METHOD 12/26/2024 12:34 PM EDT [facility] Blood Venous blood specimen / Unknown 12/26/2024 10:50 AM EDT 12/26/2024 12:31 PM EDT Narrative [facility] - 12/26/2024 12:34 PM EDT Therapeutic decision making should be based on absolute values, rather than percentages. Yosi Richmond MD LAB BLOOD ORDERABLES Final Result Performing Organization Address City/[facility]/ZIP Co de Phone Number [facility]ALTH[facility] [address] [place] [address] * Urea Nitrogen, Plasma (12/26/2024 10:50 AM EDT) BUN, Plasma 14 8 - 23 mg/dL 12/26/2024 12:49 PM EDT [facility] Blood Venous blood specimen / Unknown 12/26/2024 10:50 AM EDT 12/26/2024 12:31 PM EDT Yosi Richmond MD LAB BLOOD ORDERABLES Final Result [facility] [address] [place] [address] * (ABNORMAL) Creatinine, plasma (12/26/2024 10:50 AM EDT) Creatinine, Plasma 1.45(H) 0.60 - 1.10 mg/dL 12/26/2024 12:49 PM EDT [facility] eGFRcr 40.4 mL/min/1.7 3m*2 12/26/2024 12:49 PM EDT [facility] Comment:Reported eGFRcr in m L/min/1.73m2 is based the CKD-EPI 2020 equation that does not use a race coefficient. Blood Venous blood specimen / Unknown 12/26/2024 10:50 AM EDT 12/26/2024 12:31 PM EDT Yosi Richmond MD LAB BLOOD ORDERABLES Final Result Performing Organization Address [facility] de Phone Number [facility] [address] [place] [address] * (ABNORMAL) C-reactive protein (12/26/2024 10:50 AM EDT) CRP, Plasma 10.0(H) <=8.0 mg/L 12/26/2024 12:49 PM EDT [facility] Blood Venous blood specimen / Unknown 12/26/2024 10:50 AM EDT 12/26/2024 12:31 PM EDT Narrative [facility] - 12/26/2024 12:49 PM EDT This CRP test is appropriate for assessment of infection, systemic inflammation and/or tissue injury. To assess cardiovascular disease risk order high sensitivity CRP (CRPH). 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 12/16/2024 12/22/2024 Assessment Noted Time PHQ-9 Depression Total Score: 0 09/01/19 25 3:26 PM EDT A fall risk assessment has been complete d for the patient 11/29/2024 1:14 PM EDT A Body Mass Index follow-up plan has been documented for the patient 12/23/2024 8:17 AM EDT documented as of this encounter Care Teams Writing Manager Relationship Specialty Start Date End Date Laurie Gutierrez MD [address] [place] [address] PCP - General 12/09/23 Joshua Martínez MD [address] [place] [phone] Consulting Physician Radiation Oncology 09/19/24 documented as of this encounter
--- OUTSIDE RECORDS SUMMARY | 2025-01-04 11:36 | XMS_ITS | Encounter Summary ---
Author Organization Healthcare Address [address] [place] [address] Care Team Providers Care Foundation Relations Manager Name Role Phone Laurie Gutierrez MD Primary Care Provider [phone] Joshua Martínez MD Unavailable Sabine Morales LPN Unavailable Unavailable Encounter Details Date Type Department Care Team (Late st Contact Info) Description 12/23/2024 Clinical Support [facility] [address] [place] [address] Daniella Sargent, PharmD [place], [place] [id number] Social History Tobacco Use Types Packs/Day Years [...] time in the past 12 [place], were you homeless or living in a [...] time in the past 12 [place], were you homeless or living in a senior care (including now)? No 12/16/2024 CAGE ASSESSMENT Answer [...] drink first t laurie in the morning (EYE-BOOMSWING OPERATOR) to steady your nerves or to [...] Description 01/05/2025 1:00 PM EDT Office Visit [facility] [address] [place] [address] Lia Barnes, ELECTRICAL DRAFTER [address] [facility] [address] [place] [address] 01/10/2025 9:00 AM EDT Clinical Support [facility] [address] [facility], 2nd [place] [address] 01/10/2025 9:40 AM EDT Office Visit [facility] [address] [facility], 2nd [place] [phone] Satnam Colvin MD [address] [facility] Nuria Zane [facility] [address] [place] [address] 01/10/2025 12:00 PM EDT Appointment [facility] 1 [address] [place] [phone] 01/11/2025 3:30 PM EDT Appointment [facility] 1 [address] [place] [phone] 01/12/2025 3:30 PM EDT Appointment [facility] 2 [address] [place] [phone] 01/19/2025 9:20 AM EDT Appointment [facility] [address], 1st [place] [address] 01/19/2025 10:45 AM EDT Office Visit [place] [facility] [address], 1st [place] [address] Abhilash Bangura MD [address] [place] [address] 01/26/2025 4:30 PM EDT Office Visit [facility] [address] [place] [address] Lia Barnes, ELECTRICAL DRAFTER [address] [facility] [address] [place] [address] 03/08/2025 1:00 PM EDT Office Visit [facility] 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 12/16/2024 12/22/2024 Assessment Noted Time PHQ-9 Depression Total Score: 0 09/01/19 3:26 PM EDT A fall risk assessment has been complete d for the patient 11/29/2024 1:14 PM EDT A Body Mass Index follow-up plan has been documented for the patient 12/23/2024 8:17 AM EDT documented as of this encounter Care Teams Foundation Relations Manager Relationship Specialty Start Date End Date Laurie Gutierrez MD [address] [place] [address] PCP - General 12/09/23 Joshua Martínez MD [address] [place] [address] Consulting Physician Radiation Oncology 09/19/24 Sabine Morales LPN TCM Nurse 11/23/24 12/23/24 documented as of this encounter
--- OUTSIDE RECORDS SUMMARY | 2025-01-04 11:37 | XMS_ITS | Encounter Summary ---
Author Organization Healthcare Address [address] [place] [address] Care Team Providers Care Commercial Credit Specialist Name Role Phone Laurie Gutierrez MD Primary Care Provider [phone] Joshua Martínez MD Unavailable Encounter Details Date Type Department Care Team (Late st Contact Info) Description 01/02/2025 Lab Requisition [facility] [address], 1st [place] [address] Yosi Richmond MD [address] [place] [address] Infection following a procedure, other [...] living in a fci (including now)? No 12/16/2024 CAGE ASSESSMENT Answer [...] drink first t laurie in the morning (EYE-CURLING MACHINE OPERATOR) to steady your nerves or [...] Description 01/05/2025 1:00 PM EDT Office Visit [facility] [address] [place] [address] Lia Barnes, ORDER CONTROL CLERK BLOOD BANK [address] [facility] 100 [place] [address] 01/10/2025 9:00 AM EDT Clinical Support [facility] [address] [facility], 2nd [place] [address] 01/10/2025 9:40 AM EDT Office Visit [facility] [address] [facility], 2nd [place] [address] Satnam Colvin MD [address] [facility] Nuria Degroot [facility] [address] [place] [address] 01/10/2025 12:00 PM EDT Appointment [facility] 1 [address] [place] [address] 01/11/2025 3:30 PM EDT Appointment [facility] 1 [address] [place] [address] 01/12/2025 3:30 PM EDT Appointment [facility] 2 [address] [place] [address] 01/19/2025 9:20 AM EDT Appointment [facility] [address] [place] [address] 01/19/2025 10:45 AM EDT Office Visit [place] [facility] [address], 1st [place] [address] Abhilash Bangura MD [address] [place] [address] 01/26/2025 4:30 PM EDT Office Visit [facility] [address] [facility] [place] [address] Lia Barnes, ORDER CONTROL CLERK BLOOD BANK [address] [facility] [address] [place] [address] 03/08/2025 1:00 PM EDT Office Visit [facility] 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) Dyspnea, unspecified Secondary malignant neoplasm of brain (CMS/HCC) CBC WITH AUTO DIFFERENTIAL Routine 01/02/2025 10:40 AM EDT Infection following a procedure, other surgical site, initial encounter 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 acute cor pulmonale (CMS/HCC) Dyspnea, unspecified Secondary malignant neoplasm of brain (CMS/HCC) C-REACTIVE PROTEIN, PLASMA Routine 01/02/2025 10:40 AM EDT Infection following a procedure, other surgical site, initial encounter 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 acute cor pulmonale (CMS/HCC) Dyspnea, unspecified Secondary malignant neoplasm of brain (CMS/HCC) UREA NITROGEN, PLASMA Routine 01/02/2025 10:40 AM EDT Infection following a procedure, other surgical site, initial encounter 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 acute cor pulmonale (CMS/HCC) Dyspnea, unspecified Secondary malignant neoplasm of brain (CMS/HCC) documented in this encounter Results * (ABNORMAL) CBC and Differential (01/02/2025 10:40 AM EDT) WBC Count 8.22 3.70 - 10.30 10*3/uL LAB HEMATOLOGY METHOD 01/02/2025 3:41 PM EDT [facility] RBC Count 3.01(L) 3.90 - 5.20 10*6/uL LAB HEMATOLOGY METHOD 01/02/2025 3:41 PM EDT [facility] HGB 9.2(L) 11.2 - 15.7 g/dL LAB HEMATOLOGY METHOD 01/02/2025 3:41 PM EDT [facility] HCT 29.9(L) 34.0 - 45.0 % LAB HEMATOLOGY METHOD 01/02/2025 3:41 PM EDT [facility] Platelet Count 161 155 - 369 10*3/uL LAB HEMATOLOGY METHOD 01/02/2025 3:41 PM EDT [facility] MCV 99(H) 79 - 98 fL LAB HEMATOLOGY METHOD 01/02/2025 3:41 PM EDT [facility] MCH 30.6 26.0 - 32.0 pg LAB HEMATOLOGY METHOD 01/02/2025 3:41 PM EDT [facility] MCHC 30.8 30.7 - 35.5 g/dL LAB HEMATOLOGY METHOD 01/02/2025 3:41 PM EDT [facility] RDW 20.6(H) 11.5 - 14.5 % LAB HEMATOLOGY METHOD 01/02/2025 3:41 PM EDT [facility] MPV 10.5 8.8 - 12.5 fL LAB HEMATOLOGY METHOD 01/02/2025 3:41 PM EDT [facility] nRBC 0.0 <=0.0 per 100 WBCs LAB HEMATOLOGY METHOD 01/02/2025 3:41 PM EDT [facility] Differential Type Automated LAB HEMATOLOGY METHOD 01/02/2025 3:41 PM EDT [facility] Neutrophils % 71 % LAB HEMATOLOGY METHOD 01/02/2025 3:41 PM EDT [facility] Lymphocytes % 16 % LAB HEMATOLOGY METHOD 01/02/2025 3:41 PM EDT [facility] Monocytes % 8 % LAB HEMATOLOGY METHOD 01/02/2025 3:41 PM EDT [facility] Eosinophils % 3 % LAB HEMATOLOGY METHOD 01/02/2025 3:41 PM EDT [facility] Basophils % 1 % LAB HEMATOLOGY METHOD 01/02/2025 3:41 PM EDT [facility] Immature Granulocytes % 1 % LAB HEMATOLOGY METHOD 01/02/2025 3:41 PM EDT [facility] Neutrophils Absolute 5.81 1.60 - 6.10 10*3/uL LAB HEMATOLOGY METHOD 01/02/2025 3:41 PM EDT [facility] Lymphocytes Absolute 1.34 1.20 - 3.90 10*3/uL LAB HEMATOLOGY METHOD 01/02/2025 3:41 PM EDT [facility] Monocytes Absolute 0.65 0.30 - 0.90 10*3/uL LAB HEMATOLOGY METHOD 01/02/2025 3:41 PM EDT [facility] Eosinophils Absolute 0.28 0.00 - 0.50 10*3/uL LAB HEMATOLOGY METHOD 01/02/2025 3:41 PM EDT [facility] Basophils Absolute 0.10 0.00 - 0.10 10*3/uL LAB HEMATOLOGY METHOD 01/02/2025 3:41 PM EDT [facility] Immature Granulocytes Absolute 0.04 0.00 - 0.06 10*3/uL LAB HEMATOLOGY METHOD 01/02/2025 3:41 PM EDT [facility] Blood Venous blood specimen / Unknown 01/02/2025 10:40 AM EDT 01/02/2025 3:21 PM EDT Narrative [facility] - 01/02/2025 3:41 PM EDT Therapeutic decision making should be based on absolute values, rather than percentages. us Yosi Richmond MD LAB BLOOD ORDERABLES Final Result [facility] [address] [place] [id number] * Urea Nitrogen, Plasma (01/02/2025 10:40 AM EDT) BUN, Plasma 17 8 - 23 mg/dL 01/02/2025 3:54 PM EDT [facility] Blood Venous blood specimen / Unknown 01/02/2025 10:40 AM EDT 01/02/2025 3:21 PM EDT Yosi Richmond MD LAB BLOOD ORDERABLES Final Result Performing Organization Address City/[facility] Co de Phone Number [facility] [address] [place] [address] * (ABNORMAL) Creatinine, plasma (01/02/2025 10:40 AM EDT) Creatinine, Plasma 1.23(H) 0.60 - 1.10 mg/dL 01/02/2025 3:54 PM EDT [facility] eGFRcr 49.2 mL/min/1.7 3m*2 01/02/2025 3:54 PM EDT [facility] Comment:Reported eGFRcr in m L/min/1.73m2 is based the CKD-EPI 2020 equation that does not use a race coefficient. Blood Venous blood specimen / Unknown 01/02/2025 10:40 AM EDT 01/02/2025 3:21 PM EDT Yosi Richmond MD LAB BLOOD ORDERABLES Final Result Performing Organization Address [facility] de Phone Number [facility] [address] [place] [address] * C-reactive protein (01/02/2025 10:40 AM EDT) CRP, Plasma <3.0 <=8.0 mg/L 01/02/2025 3:54 PM EDT [facility] Blood Venous blood specimen / Unknown 01/02/2025 10:40 AM EDT 01/02/2025 3:21 PM EDT Narrative [facility] - 01/02/2025 3:54 PM EDT This CRP test is appropriate for assessment of infection, systemic inflammation and/or tissue injury. To assess cardiovascular disease risk order high sensitivity CRP (CRPH). 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 12/16/2024 12/22/2024 Assessment Noted Time PHQ-9 Depression Total Score: 0 09/01/19 3:26 PM EDT A fall risk assessment has been complete d for the patient 11/29/2024 1:14 PM EDT A Body Mass Index follow-up plan has been documented for the patient 12/23/2024 8:17 AM EDT documented as of this encounter Care Teams Commercial Credit Specialist Relationship Specialty Start Date End Date Laurie Gutierrez MD [address] [place], [place] [id number] PCP - General 12/09/23 Joshua Martínez MD [address] [place] [phone] Consulting Physician Radiation Oncology 09/19/24 documented as of this encounter
--- OUTSIDE RECORDS SUMMARY | 2025-01-04 11:37 | XMS_ITS | Encounter Summary ---
Author Organization Healthcare Address [address] 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 No 12/16/2024 CAGE ASSESSMENT Answer [...] first t laurie in the morning (EYE-HAND SPINNER) to steady your nerves or to get [...] PM EDT Office Visit [facility] [address] [place] [address] Lia Barnes, RAILROAD DISPATCHER 3101 [facility] 100 [place] [address] 01/10/2025 9:00 AM EDT Clinical Support [facility] Res[facility] [address] [facility], 2nd [place] [address] 01/10/2025 9:40 AM EDT Office Visit [facility] [address] [facility], 2nd [place] [address] Satnam Colvin MD [address] [facility] [address] [place] [address] 01/10/2025 12:00 PM EDT Appointment [facility] 1 [address] [place] [address] 01/11/2025 3:30 PM EDT Appointment [facility] 1 [address] [place] [address] 01/12/2025 3:30 PM EDT Appointment [facility] 2 [address] [place] [address] 01/19/2025 9:20 AM EDT Appointment P[facility] S Radiology [address], 1st [place] [address] 01/19/2025 10:45 AM EDT Office Visit [place] [facility] [address], 1st [place] [address] Abhilash Bangura MD [address] [place] [address] 01/26/2025 4:30 PM EDT Office Visit [facility] [address] [facility] [place] [address] Lia Barnes, RAILROAD DISPATCHER [address]01 [facility] [address] [place] [address] 03/08/2025 1:00 PM EDT Office Visit [facility] [place] [facility] [address] 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 12/16/2024 12/22/2024 Assessment Noted Time PHQ-9 Depression Total Score: 0 09/01/19 3:26 PM EDT A fall risk assessment has been complete d for the patient 11/29/2024 1:14 PM EDT A Body Mass Index follow-up plan has been documented for the patient 12/23/2024 8:17 AM EDT documented as of this encounter Care Teams Comic Artist Relationship Specialty Start Date End Date Laurie Gutierrez MD [address] [place], [place] [phone] PCP - General 12/09/23 Joshua Martínez MD [address] [phone] Consulting Physician Radiation Oncology 09/19/24 documented as of this encounter
--- OUTSIDE RECORDS SUMMARY | 2025-01-04 11:37 | XMS_ITS | Encounter Summary ---
Author Organization Healthcare Address [address] [place] [address] Care Team Providers Care Guest Relations Executive Name Role Phone Laurie Gutierrez MD Primary Care Provider [phone] Joshua Martínez MD Unavailable Paradise Pacheco RN Unavailable Unavailab le Encounter Details Date Type Department Care Team (Late st Contact Info) Description 11/15/2024 Orders Only External Location [address] [place] [address] Provider, External Social History Tobacco Use Types [...] any time in the past 12 m [facility], were you homeless or living [...] any time in the past 12 m [facility], were you homeless or living [...] drink first t laurie in the morning (EYE-MIDDLE SCHOOL DIRECTOR) to steady your nerves or to [...] Author No Risk Indicated 11/21/2024 7:39 AM EDT Stephanie Pierre RN * Question Answer Date of Assessment Author 1. Wish to be (Past 1 Month) No 025 7:39 AM JULIAT Flor Pierre RN 2. Non-Specific Active Suici radha Thoughts (Past 1 Month) No 11/21/2024 7:39 AM EDT Gerson Pierre RN 6. Suicidal Behavior (Lifetime) No 7:39 AM JULIAT Pierre, Flor R, RN documented as of this encounter Plan of Treatment Upcoming Encounters Date Type Department Care Team (Late st Contact Info) Description 01/05/2025 1:00 PM EDT Office Visit [facility] [address] [facility] [place] [address] Lia Barnes, REGISTER REPAIRER [address] [facility] [address] [place] [address] 01/10/2025 9:00 AM EDT Clinical Support [facility] Head[facility] Neck [facility] Respiratory 800 [facility], 2nd [place] [address] 01/10/2025 9:40 AM EDT Office Visit [facility] Head[facility] Neck [facility] Respiratory [address] [facility], 2nd [place] [address] Satnam Colvin MD [address] [facility] [address] [place] [address] 01/10/2025 12:00 PM EDT Appointment [facility] 1 [address] [place] [address] 01/11/2025 3:30 PM EDT Appointment [facility] 1 [address] [place] [address] 01/12/2025 3:30 PM EDT Appointment [facility] 2 [address] [place] [address] 01/19/2025 9:20 AM EDT Appointment [facility] S Radiology [address], 1st [place] [address] 01/19/2025 10:45 AM EDT Office Visit [place] [facility] [address], 1st [place] [address] Abhilash Bangura MD [address] [place] [address] 01/26/2025 4:30 PM EDT Office Visit [facility] [address] [facility] [place] [address] Lia Barnes, SHARDA [address] [facility] [address] [place] [address] 03/08/2025 1:00 PM EDT Office Visit [facility] [place] [facility] 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, GUNNER'S MATE 10/26/2024 10/31/2024 Assessment Noted Time PHQ-9 Depression Total Score: 0 09/01/19 25 3:26 PM EDT A fall risk assessment has been complete d for the patient 11/10/2024 2:43 PM EDT A Body Mass Index follow-up plan has been documented for the patient 11/08/2024 5:14 PM EDT documented as of this encounter Care Teams Guest Relations Executive Relationship Specialty Start Date End Date Laurie Gutierrez MD [address] [place] [address] PCP - General 12/09/23 Joshua Martínez MD [address] [place] [address] Consulting Physician Radiation Oncology 09/19/24 Paradise Pacheco, RN CH-VASCULAR & INTERVENTIONAL RADIOLOGY Registered Nurse 11/21/24 11/21/24 documented as of this encounter
--- OUTSIDE RECORDS SUMMARY | 2025-01-04 11:37 | XMS_ITS | Encounter Summary ---
Author Organization Healthcare Address [address] [place] [address] Care Team Providers Care Tool Shaper Set Up Operator Name Role Phone Laurie Gutierrez MD Primary Care Provider [phone] Joshua Martínez MD Unavailable Sabine Morales LPN Unavailable Unavailable Encounter Details Date Type Department Care Team (Latest Contact Info) Description 12/08/2024 Travel Social History Tobacco Use Types Packs/Day [...] the past 12 m [facility], were you homeless or living in a [...] the past 12 m [facility], were you homeless or living in a [place] [facility] (including now)? No 12/01/2024 CAGE ASSESSMENT Answer [...] drink first t laurie in the morning (EYE-TAFE REGISTRAR) to steady your nerves or to get rid of a hangover? 0 12/02/2024 CAGE Questionnaire Score 0 025 Utilities Answer Date Recorded In the past 12 months has e [employer], gas, oil, or water company threatened to [...] Description 01/05/2025 1:00 PM EDT Office Visit [facility] [address] [place] [address] Lia Barnes, CHEMIST PROTEINS 3101 [facility] 100 [place] [address] 01/10/2025 9:00 AM EDT Clinical Support [facility] Head[facility] Neck [facility] Respiratory 800 [facility], 2nd [place] [address] 01/10/2025 9:40 AM EDT Office Visit [facility] Res[facility] [address] 2nd [place] [address] Satnam Colvin MD 800 [facility] [address] [place] [address] 01/10/2025 12:00 PM EDT Appointment [facility] 1 [address] [place] [address] 01/11/2025 3:30 PM EDT Appointment [facility] 1 [address] [place] [address] 01/12/2025 3:30 PM EDT Appointment [facility] 2 [address] [place] [address] 01/19/2025 9:20 AM EDT Appointment P[facility] S Radiology [address], 1st [place] [address] 01/19/2025 10:45 AM EDT Office Visit [place] [facility] [address], 1st [place] [address] Abhilash Bangura MD [address] [place] [address] 01/26/2025 4:30 PM EDT Office Visit [facility] [address]01 [facility] [place] [address] Lia Barnes, CHEMIST PROTEINS 3101 [facility] [address] [place] [address] 03/08/2025 1:00 PM EDT Office Visit [facility] [place] [facility] [address] [facility]. 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, COLLAR TURNER 10/26/2024 10/31/2024 Assessment Noted Time PHQ-9 Depression Total Score: 0 09/01/19 3:26 PM EDT A fall risk assessment has been complete d for the patient 11/29/2024 1:14 PM EDT A Body Mass Index follow-up plan has been documented for the patient 12/10/2024 5:08 PM EDT documented as of this encounter Care Teams Tool Shaper Set Up Operator Relationship Specialty Start Date End Date Laurie Gutierrez MD [address] [place] [address] PCP - General 12/09/23 Joshua Martínez MD [address] [place] [address] Consulting Physician Radiation Oncology 09/19/24 Sabine Morales LPN TCM Nurse 11/23/24 12/23/24 documented as of this encounter
--- OUTSIDE RECORDS SUMMARY | 2025-01-04 11:37 | XMS_ITS | Encounter Summary ---
Author Organization Healthcare Address [address] [place] [address] Care Team Providers Care Lapping Machine Operator Name Role Phone Laurie Gutierrez MD Primary Care Provider [phone] Joshua Martínez MD Unavailable Sabine Morales LPN Unavailable Unavailable Encounter Details Date Type Department Care Team (Latest Contact Info) Description 12/06/2024 Travel Social History Tobacco Use Types Packs/Day [...] living in a half-way (including now)? No 12/01/2024 CAGE ASSESSMENT Answer [...] drink first t laurie in the morning (EYE-CHUCK SPLITTER) to steady your nerves or to get rid of a hangover? 0 12/02/2024 CAGE Questionnaire Score 0 025 Utilities Answer Date Recorded In the past 12 months has e [employer], gas, oil, or water [employer] threatened to shut off services in your [...] Date of Assessment Author No Risk Indicated 12/06/2024 8:00 PM EDT Erin Hardwick RN * Question Answer Date of Assessment Author 1. Wish to be (Past 1 Month) No 025 8:00 PM EDT Erin Hardwick RN 2. Non-Specific Active Suici radha Thoughts (Past 1 Month) No 12/06/2024 8:00 PM EDT Solo Hardwick RN 6. Suicidal Behavior (Lifetime) No 8:00 PM EDT Erin Hardwick RN documented as of this encounter Plan of Treatment Upcoming Encounters Date Type Department Care Team (Late st Contact Info) Description 01/05/2025 1:00 PM EDT Office Visit [facility] [address] [place] [address] Lia Barnes, SENIOR ELECTRICAL DESIGN ENGINEER 3101 [facility] [address] [place] [address] 01/10/2025 9:00 AM EDT Clinical Support Pav [facility] Head[facility] Neck & Respiratory 800 [facility], 2nd [place] [address] 01/10/2025 9:40 AM EDT Office Visit [facility] Head[facility]ck [facility] Respiratory [address] [facility], 2nd [place] [address] Satnam Colvin MD 800 [facility] [address] [facility] [place] [facility] [address] [place] [address] 01/10/2025 12:00 PM EDT Appointment [facility] 1 [address] [place] [address] 01/11/2025 3:30 PM EDT Appointment [facility] 1 [address] [place] [address] 01/12/2025 3:30 PM EDT Appointment [facility] 2 [address] [place] [address] 01/19/2025 9:20 AM EDT Appointment [facility] S Radiology [address], 1st [place] [address] 01/19/2025 10:45 AM EDT Office Visit [place] [facility] [address], 1st [place] [address] Abhilash Bangura MD [address] [place] [address] 01/26/2025 4:30 PM EDT Office Visit [facility] [address] [place] [address] Lia Barnes, SENIOR ELECTRICAL DESIGN ENGINEER [address] [facility] [address] [place] [address] 03/08/2025 1:00 PM EDT Office Visit [facility] [place] 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, ADDICTION PROFESSIONAL 10/26/2024 10/31/2024 Meningitis Rule-Out 12/06/2024 12/06/2024 12/07/19 8:29 PM EDT Assessment Noted Time PHQ-9 Depression Total Score: 0 09/01/19 3:26 PM EDT A fall risk assessment has been complete d for the patient 11/29/2024 1:14 PM EDT A Body Mass Index follow-up plan has been documented for the patient 12/10/2024 5:08 PM EDT documented as of this encounter Care Teams Lapping Machine Operator Relationship Specialty Start Date End Date Laurie Gutierrez MD [address] [place], [place] [phone] PCP - General 12/09/23 Joshua Martínez MD [address] [place] [address] Consulting Physician Radiation Oncology 09/19/24 Sabine Morales LPN TCM Nurse 11/23/24 12/23/24 documented as of this encounter
--- OUTSIDE RECORDS SUMMARY | 2025-01-04 11:37 | XMS_ITS | Encounter Summary ---
Author Organization Healthcare Address [address] [place] [address] Care Team Providers Care Lining Maker Hand Name Role Phone Laurie Gutierrez MD Primary Care Provider [phone] Joshua Martínez MD Unavailable Sabine Morales LPN Unavailable Unavailable Encounter Details Date Type Department Care Team (Latest Contact Info) Description 12/18/2024 Travel Social History Tobacco Use Types Packs/Day [...] first t laurie in the morning (EYE-MANAGER GROUP) to steady your nerves or to get rid of a hangover? 0 12/02/2024 CAGE Questionnaire Score 0 025 Utilities Answer Date Recorded In the past 12 months has th [employer], gas, oil, or water [employer] threatened to shut off services in your [...] Date of Assessment Author No Risk Indicated 12/18/2024 8:05 PM EDT Ammy Prather RN * Question Answer Date of Assessment Author 1. Wish to be (Past 1 Month) No 12/18/2024 8:05 PM EDT Ammy Prather RN 2. Non-Specific Active Suici radha Thoughts (Past 1 Month) No 12/18/2024 8:05 PM EDT Anay Prather RN 6. Suicidal Behavior (Lifetime) No 8:05 PM EDT Ammy Prather RN documented as of this encounter Plan of Treatment Upcoming Encounters Date Type Department Care Team (Late st Contact Info) Description 01/05/2025 1:00 PM EDT Office Visit [facility] [address] [place] [address] Lia Barnes, MATCHING MACHINE OPERATOR 3101 [facility] [address] [place] [address] 01/10/2025 9:00 AM EDT Clinical Support [facility] Head[facility] Neck [facility] Respiratory [address] [facility], 2nd [place] [address] 01/10/2025 9:40 AM EDT Office Visit [facility] Head[facility] Neck [facility] Respiratory [address] [facility], 2nd [place] [address] Satnam Colvin MD 800 [facility] [address] [place] [address] 01/10/2025 12:00 PM EDT Appointment [facility] 1 [address] [place] [address] 01/11/2025 3:30 PM EDT Appointment [facility] 1 [address] [place] [address] 01/12/2025 3:30 PM EDT Appointment [facility] 2 [address] [place] [address] 01/19/2025 9:20 AM EDT Appointment [facility] S Radiology [address], 1st [place] [address] 01/19/2025 10:45 AM EDT Office Visit [place] [facility] [address], 1st [place] [address] Abhilash Bangura MD [address] [place] [address] 01/26/2025 4:30 PM EDT Office Visit [facility] 3101 [facility] [place] [address] Lia Barnes, MATCHING MACHINE OPERATOR [address] [facility] [address] [place] [address] 03/08/2025 1:00 PM EDT Office Visit [facility] [place] 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, CUSTODIAL AIDE 10/26/2024 10/31/2024 Assessment Noted Time PHQ-9 Depression Total Score: 0 09/01/19 25 3:26 PM EDT A fall risk assessment has been complete d for the patient 11/29/2024 1:14 PM EDT A Body Mass Index follow-up plan has been documented for the patient 12/22/2024 2:34 PM EDT documented as of this encounter Care Teams Lining Maker Hand Relationship Specialty Start Date End Date Laurie Gutierrez MD [address] [place], [place] [phone] PCP - General 12/09/23 Joshua Martínez MD [address] [place] [address] Consulting Physician Radiation Oncology 09/19/24 Sabine Morales LPN TCM Nurse 11/23/24 12/23/24 documented as of this encounter
--- OUTSIDE RECORDS SUMMARY | 2025-01-04 11:37 | XMS_ITS | Encounter Summary ---
Author Organization Healthcare Address [address] [place] [address] Care Team Providers Care Dredge Or Barge Shore Hand Name Role Phone Laurie Gutierrez MD Primary Care Provider [phone] Joshua Martínez MD Unavailable Sabine Morales LPN Unavailable Unavailable Reason for Visit * Reason Comments TCM Call Encounter Details Date Type Department Care Team (Late st Contact Info) Description 12/12/2024 Patient Outreach [facility] [address], [address] [place] [address] Sabine Morales LPN TCM Call [...] in the past 12 m [facility], were you homeless or [...] in the past 12 m [facility], were you homeless or living in a [facility] (including now)? No 12/16/2024 CAGE ASSESSMENT Answer [...] drink first t laurie in the morning (EYE-CARDIOPULMONARY SPECIALIST) to steady your nerves or to [...] Montoya RN 6. Suicidal Behavior (Lifetime) No 8:00 AM EDT Quentin Montoya RN documented as of this encounter Miscellaneous Notes * Progress Notes - Morales Sabineap Brown LPN - 12/12/2024 12:16 PM EDT Admit Date: 11/29/2024 Discharge Date: 12/10/2024 Hospital [facility]: [facility] Discharge Diagnosis: Seizure 12/12/2024 TCM call # 1 Patient Reached: Yes Outcome: Spoke with patient for TCM nurse call, patient states that she is doing well since discharge, denies seizure like activity. Patient endorses that she is eating and drinking well and using the restroom normally. Patient reviewed medications with TCM nurse, confirmed she is compliant with all home and discharge medications. Patient states she continues to hold medications as ordered, and has not had any side effects at this time. Patient states she still sees Dr. Laurie Gutierrez MD as her PCP, and can get an appointment any time one is needed, declines need for an appointment at this time. SDOH updated, patient denies needs at this time. No other questions, concerns, or complaints voiced. Action: N/A Medication changes: Per Discharge Summary: PAUSE taking these medications Lantus SoloStar 100 [...] Take 1 tablet by mouth every morning. -NEW: levETIRAcetam 500 MG tablet Commonly known as: Keppra Take 2 tablets by mouth 2 times a day. [facility] appointment: Needs an appointment scheduled with PCP Items to address at [facility]: N/A documented in this encounter Plan of Treatment Upcoming Encounters Date Type Department Care Team (Late st Contact Info) Description 01/05/2025 1:00 PM EDT Office Visit [facility] [address] [place] [address] Lia Barnes, WORK AND FAMILY LIFE CONSULTANT [address] [facility] 100 [place] [address] 01/10/2025 9:00 AM EDT Clinical Support [facility]ck [facility] Res[facility] 800 [facility], 2nd [place] [address] 01/10/2025 9:40 AM EDT Office Visit [facility] [address] [facility], 2nd [place] [address] Satnam Colvin MD 800 [facility] [address] [place] [address] 01/10/2025 12:00 PM EDT Appointment [facility] 1 [address] [place] [address] 01/11/2025 3:30 PM EDT Appointment [facility] 1 [address] [place] [address] 01/12/2025 3:30 PM EDT Appointment [facility] 2 [address] [place] [address] 01/19/2025 9:20 AM EDT Appointment [facility] [address], 1st [place] [address] 01/19/2025 10:45 AM EDT Office [facility] [place] [facility] [address], [address]st [place] [address] Abhilash Bangura MD [address] [place] [address] 01/26/2025 4:30 PM EDT Office Visit [facility] [address] [facility] [address] Lia Barnes, WORK AND FAMILY LIFE CONSULTANT [address] [facility] [address] [place] [address] 03/08/2025 1:00 PM EDT Office Visit [facility] [place] 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 12/16/2024 12/22/2024 Assessment Noted Time PHQ-9 Depression Total Score: 0 09/01/19 3:26 PM EDT A fall risk assessment has been complete d for the patient 11/29/2024 1:14 PM EDT A Body Mass Index follow-up plan has been documented for the patient 12/10/2024 5:08 PM EDT documented as of this encounter Care Teams Dredge Or Barge Shore Hand Relationship Specialty Start Date End Date Laurie Gutierrez MD [address] [place] [address] PCP - General 12/09/23 Joshua Martínez MD [address] [place] [phone] Consulting Physician Radiation Oncology 09/19/24 Sabine Morales LPN TCM Nurse 11/23/24 12/23/24 documented as of this encounter
--- OUTSIDE RECORDS SUMMARY | 2025-01-04 11:37 | XMS_ITS | Encounter Summary ---
Author Organization Healthcare Address [address] [place] [address] Care Team Providers Care Computer Application Developer Name Role Phone Laurie Gutierrez MD Primary Care Provider [phone] Joshua Martínez MD Unavailable Encounter Details Date [...] drink first t laurie in the morning (EYE-SOURCING SPECIALIST) to steady your nerves or to get rid of a hangover? 0 10/27/2024 CAGE Questionnaire Score 0 025 Utilities Answer Date Recorded In the past 12 months has th e [employer], gas, oil, or water company threatened to [...] Description 01/05/2025 1:00 PM EDT Office Visit [facility] [address] [place] [address] Lia Barnes, ANIMAL SHELTER WORKER [address] [facility] [address] [place] [address] 01/10/2025 9:00 AM EDT Clinical Support [facility] [address] [facility], 2nd [place] [address] 01/10/2025 9:40 AM EDT Office Visit [facility] [address] [facility], 2nd [place] [address] Satnam Colvin MD [address] [facility] [address] [place] [address] 01/10/2025 12:00 PM EDT Appointment [facility] 1 [address] [place] [address] 01/11/2025 3:30 PM EDT Appointment [facility] 1 [address] [place] [address] 01/12/2025 3:30 PM EDT Appointment [facility] 2 [address] [place] [address] 01/19/2025 9:20 AM EDT Appointment [facility] [address], 1st [place] [address] 01/19/2025 10:45 AM EDT Office Visit [facility] [address], 1st [place] [address] Abhilash Bangura MD [address] [place] [address] 01/26/2025 4:30 PM EDT Office Visit [facility] [address] [place] [address] Lia Barnes, ANIMAL SHELTER WORKER [address] [facility] [address] [place] [address] 03/08/2025 1:00 PM EDT Office Visit [facility] [place] [facility] 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, BELT SANDER STONE 10/26/2024 10/31/2024 Assessment Noted Time PHQ-9 Depression Total Score: 0 09/01/19 3:26 PM EDT A fall risk assessment has been complete d for the patient 11/10/2024 2:43 PM EDT A Body Mass Index follow-up plan has been documented for the patient 11/08/2024 5:14 PM EDT documented as of this encounter Care Teams Computer Application Developer Relationship Specialty Start Date End Date Laurie Gutierrez MD [address] [place] [address] PCP - General 12/09/23 Joshua Martínez MD [address] [place] [address] Consulting Physician Radiation Oncology 09/19/24 documented as of this encounter
--- OUTSIDE RECORDS SUMMARY | 2025-01-04 11:37 | XMS_ITS | Encounter Summary ---
Author Organization Healthcare Address [address] [place] [address] Care Team Providers Care Personal Lines Insurance Advisor Name Role Phone Laurie Gutierrez MD Primary Care Provider [phone] Joshua Martínez MD Unavailable Paradise Pacheco RN Unavailable Unavailab le Encounter Details Date Type Department Care Team (Late st Contact Info) Description 11/15/2024 Orders Only External Location [address] [place] [address] Regina Katz, EHS MANAGER [address] [place] [address] Social History Tobacco Use Types [...] medical appointments or from getting medications? No 07/0 11/2024 In the past 12 months, has [...] drink first t laurie in the morning (EYE-ENT PHYSICIAN) to steady your nerves or to [...] (Past 1 Month) No 025 7:39 AM EDT Flor Pierre RN 2. Non-Specific Active Suici radha Thoughts (Past 1 Month) No 11/21/2024 7:39 AM EDT Gerson Pierre RN 6. Suicidal Behavior (Lifetime) No 7:39 AM EDT Flor Pierre RN documented as of this encounter Plan of Treatment Upcoming Encounters Date Type Department Care Team (Late st Contact Info) Description 01/05/2025 1:00 PM EDT Office Visit [facility] [address] [place] [address] Lia Barnes, EHS MANAGER [address] [facility] [address] [place] [address] 01/10/2025 9:00 AM EDT Clinical Support [facility] [address] [facility], 2nd [place] [address] 01/10/2025 9:40 AM EDT Office Visit [facility] [address] [facility], 2nd [place] [address] Satnam Colvin MD [address] [facility] Nuria [facility] [address] [place] [address] 01/10/2025 12:00 PM EDT Appointment [facility] 1 [address] [place] [address] 01/11/2025 3:30 PM EDT Appointment [facility] 1 [address] [place] [address] 01/12/2025 3:30 PM EDT Appointment [facility] 2 [address] [place] [address] 01/19/2025 9:20 AM EDT Appointment [facility] [address], 1st [place] [address] 01/19/2025 10:45 AM EDT Office Visit [place] [facility] [address], 1st [place] [address] Abhilash Bangura MD [address] [place] [address] 01/26/2025 4:30 PM EDT Office Visit [facility] [address] [facility] [place] [address] Lia Barnes APRN [address] [facility] [address] [place] [address] 03/08/2025 1:00 PM EDT Office Visit [facility] [place] [facility] [address] [place] [address] Teresita Oconnell MD [address] [place] [address] documented as of this encounter Procedures Procedure Name Priority Date/Time Associated Diagnosis Comments XR MSK OUTSIDE IMAGES 11/15/2024 2:42 PM EDT documented in this encounter Results * XR MSK OUTSIDE IMAGES (11/15/2024 2:42 PM EDT) Anatomical Region Laterality Modality Radiographic Carolyne ging 11/15/2024 2:42 PM EDT Regina Katz EHS MANAGER IMG XR PROCEDURES Final Res ult documented in this encounter Visit Diagnoses Not on filedocumented in this encounter Additional Health Concerns Infection Onset Date Last Indicated Resolved Time 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, FILTROSE CRUSHER 10/26/2024 10/31/2024 Assessment Noted Time PHQ-9 Depression Total Score: 0 09/01/19 25 3:26 PM EDT A fall risk assessment has been complete d for the patient 11/10/2024 2:43 PM EDT A Body Mass Index follow-up plan has been documented for the patient 11/08/2024 5:14 PM EDT documented as of this encounter Care Teams Personal Lines Insurance Advisor Relationship Specialty Start Date End Date Laurie Gutierrez MD [address] [place] [address] PCP - General 12/09/23 Joshua Martínez MD [address] [place] [phone] Consulting Physician Radiation Oncology 09/19/24 Paradise Pacheco RN [facility]OLOG[facility] Registered Nurse 11/21/24 11/21/24 documented as of this encounter
--- OUTSIDE RECORDS SUMMARY | 2025-01-04 11:38 | XMS_ITS | Encounter Summary ---
Author Organization Healthcare Address [address] [place] [address] Care Team Providers Care Installation Helper Name Role Phone Laurie Gutierrez MD Primary Care Provider [phone] Joshua Martínez MD Unavailable Sabine Morales LPN Unavailable Unavailable Encounter Details Date Type Department Care Team (Latest Contact Info) Description 12/02/2024 Travel Social History Tobacco Use Types Packs/Day [...] living in a retirement (including now)? No 12/01/2024 CAGE ASSESSMENT Answer [...] drink first t laurie in the morning (EYE-RECORDS SECTION SUPERVISOR) to steady your nerves or to get rid of a hangover? 0 12/02/2024 CAGE Questionnaire Score 0 025 Utilities Answer Date Recorded In the past 12 months has e [employer], gas, oil, or water [employer] threatened to shut off services in your [...] Date of Assessment Author No Risk Indicated 12/02/2024 8:30 PM EDT Atilio Mittal RN * Question Answer Date of Assessment Author 1. Wish to be (Past 1 Month) No 025 8:30 PM EDT Nahomi Mittal, JOSE MARTIN 2. Non-Specific Active Suici radha Thoughts (Past 1 Month) No 12/02/2024 8:30 PM EDT Nahomi Mittal, RN 6. Suicidal Behavior (Lifetime) No 8:30 PM EDT Nahomi Mittal, RN documented as of this encounter Plan of Treatment Upcoming Encounters Date Type Department Care Team (Late st Contact Info) Description 01/05/2025 1:00 PM EDT Office Visit [facility] [address] [place] [address] Lia Barnes, SUPERVISOR MATTRESS AND BOXSPRINGS [address]01 [facility] [address] [place] [address] 01/10/2025 9:00 AM EDT Clinical Support Pav [facility] [address] [facility], 2nd [place] [address] 01/10/2025 9:40 AM EDT Office Visit Pav [facility] [address] [facility], 2nd [place] [address] Satnam Colvin MD [address] [facility] [address] [place] [address] 01/10/2025 12:00 PM EDT Appointment [facility] 1 [address] [place] [address] 01/11/2025 3:30 PM EDT Appointment [facility] 1 [address] [place] [address] 01/12/2025 3:30 PM EDT Appointment [facility] 2 [address] [place] [address] 01/19/2025 9:20 AM EDT Appointment [facility] [address], 1st [place] [address] 01/19/2025 10:45 AM EDT Office Visit [place] [facility] [address], 1st [place] [address] Abhilash Bangura MD [address] [place] [address] 01/26/2025 4:30 PM EDT Office Visit [facility] [address] [place] [address] Lia Barnes, SUPERVISOR MATTRESS AND BOXSPRINGS [address] [facility] [address] [place] [address] 03/08/2025 1:00 PM EDT Office Visit [facility] [place] [facility] 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, CARPENTER PACKING 10/26/2024 10/31/2024 Assessment Noted Time PHQ-9 Depression Total Score: 0 09/01/19 3:26 PM EDT A fall risk assessment has been complete d for the patient 11/29/2024 1:14 PM EDT A Body Mass Index follow-up plan has been documented for the patient 12/10/2024 5:08 PM EDT documented as of this encounter Care Teams Installation Helper Relationship Specialty Start Date End Date Laurie Gutierrez MD [address] [place], [place] [phone] PCP - General 12/09/23 Joshua Martínez MD [address] [place] [address] Consulting Physician Radiation Oncology 09/19/24 Sabine Morales LPN TCM Nurse 11/23/24 12/23/24 documented as of this encounter
--- OUTSIDE RECORDS SUMMARY | 2025-01-04 11:38 | XMS_ITS | Encounter Summary ---
Author Organization Healthcare Address [address] [place] [address] Care Team Providers Care Senior Graduate Advisor Name Role Phone Laurie Gutierrez MD Primary Care Provider [phone] Joshua Martínez MD Unavailable Sabine Morales LPN Unavailable Unavailable Encounter Details Date Type Department Care Team (Late st Contact Info) Description 12/15/2024 Telephone [place] [facility] [address], 1st [place] [address] Abhilash Bangura MD [address] [place] [address] Social History Tobacco Use Types Packs/Day Years [...] first t laurie in the morning (EYE-ELECTRONIC SCALE SUBASSEMBLER) to steady your nerves or to get [...] Month) No 12/18/2024 8:05 PM EDT Anay Prather, JOSE MARTIN 6. Suicidal Behavior (Lifetime) No 8:05 PM EDT Ammy Prather RN documented as of this encounter Miscellaneous Notes * Telephone Encounter - Daya Milan Carolyn - 12/28/2024 8:14 AM EDT Patient Phone Message Reason for Call: Patient sister calling about when stitches need to be removed procedure was 12/16 please advise Best contact number and optimal time of day to reach caller: Era [phone] Note: Please do not reply to this message. Follow-up communication and further actions as a result of this message need to be communicated with the patient directly, if the patient is not active onMyChart. If the patient is active on MyChart, they will receive notification of the communication/outcome via MyChart. * Telephone Encounter - Divya Hodgson - 12/15/2024 10:10 AM EDT Patient Phone Message Reason for Call: Sister states that incision from surgery is still looking infected. Oozing a lot Each hospital visit they bring this up, but no response on her head incision. Not eating well or drinking well either Please give a clinical call back to Era ya And donato f/u appt requested Best contact number and optimal time of day to reach caller: Era [phone] Note: Please do not reply to this [...] EDT Office Visit [facility] [address] [place] [address] Lia Barnes, REED REPAIRER 3101 [facility] [address] [place] [address] 01/10/2025 9:00 AM EDT Clinical Support Pav [facility] [address] [facility], 2nd [place] [address] 01/10/2025 9:40 AM EDT Office Visit [facility] [address] [facility], 2nd [place] [address] Satnam Colvin MD [address] [facility] [address] [place] [address] 01/10/2025 12:00 PM EDT Appointment [facility] 1 [address] [place] [address] 01/11/2025 3:30 PM EDT Appointment [facility] 1 [address] [place] [address] 01/12/2025 3:30 PM EDT Appointment [facility] 2 [address] [place] [address] 01/19/2025 9:20 AM EDT Appointment [facility] [address], 1st [place] [address] 01/19/2025 10:45 AM EDT Office Visit [place] [facility] [address], 1st [place] [address] Abhilash Bangura MD [address] [place] [address] 01/26/2025 4:30 PM EDT Office Visit [facility] [address] [place] [address] Lia Barnes, REED REPAIRER 3101 [facility] [address] [place] [address] 03/08/2025 1:00 PM EDT Office Visit [facility] [place] [facility] 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 12/16/2024 12/22/2024 Assessment Noted Time PHQ-9 Depression Total Score: 0 09/01/19 3:26 PM EDT A fall risk assessment has been complete d for the patient 11/29/2024 1:14 PM EDT A Body Mass Index follow-up plan has been documented for the patient 12/22/2024 2:34 PM EDT documented as of this encounter Care Teams Senior Graduate Advisor Relationship Specialty Start Date End Date Laurie Gutierrez MD [address] [place] [address] PCP - General 12/09/23 Joshua Martínez MD [address] [place] [address] Consulting Physician Radiation Oncology 09/19/24 Sabine Morales LPN TCM Nurse 11/23/24 12/23/24 documented as of this encounter
--- OUTSIDE RECORDS SUMMARY | 2025-01-04 11:38 | XMS_ITS | Encounter Summary ---
Author Organization Healthcare Address [address] [place] [address] Care Team Providers Care Student Activities Director Name Role Phone Laurie Gutierrez MD Primary Care Provider [phone] Joshua Martínez MD Unavailable Sabine Morales LPN Unavailable Unavailable Encounter Details Date Type Department Care Team (Latest Contact Info) Description 12/03/2024 Travel Social History Tobacco Use Types Packs/Day [...] [facility] or living in [...] any time in the past 12 [facility], were you homeless or living in [...] drink first t laurie in the morning (EYE-CHANGE MANAGEMENT DIRECTOR) to steady your nerves or to get rid of a hangover? 0 12/02/2024 CAGE Questionnaire Score 0 025 Utilities Answer Date Recorded In the past 12 months has e [employer], gas, oil, or water [employer] threatened to shut off services in your [...] Date of Assessment Author No Risk Indicated 12/03/2024 8:00 PM EDT Erma Cary RN * Question Answer Date of Assessment Author 1. Wish to be (Past 1 Month) No 025 8:00 PM EDT Erma Cary, JOSE MARTIN 2. Non-Specific Active Suici radha Thoughts (Past 1 Month) No 12/03/2024 8:00 PM EDT Blayne Cary i, RN 6. Suicidal Behavior (Lifetime) No 8:00 PM EDT Erma Cary, JOSE MARTIN documented as of this encounter Plan of Treatment Upcoming Encounters Date Type Department Care Team (Late st Contact Info) Description 01/05/2025 1:00 PM EDT Office Visit [facility] [address] [place] [address] Lia Barnes, SOLAR MECHANICAL ENGINEER [address] [facility] [address] [place] [address] 01/10/2025 9:00 AM EDT Clinical Support [facility] Res[facility] 800 [facility], 2nd [place] [address] 01/10/2025 9:40 AM EDT Office Visit [facility] 800 [facility], 2nd [place] [address] Satnam Colvin MD [address] [facility] [address] [place] [address] 01/10/2025 12:00 PM EDT Appointment [facility] 1 [address] [place] [address] 01/11/2025 3:30 PM EDT Appointment [facility] 1 [address] [place] [address] 01/12/2025 3:30 PM EDT Appointment [facility] 2 [address] [place] [address] 01/19/2025 9:20 AM EDT Appointment [facility] [address], 1st [place] [address] 01/19/2025 10:45 AM EDT Office Visit [place] [facility] [address], [address]st [place] [address] Abhilash Bangura MD [address] [place] [address] 01/26/2025 4:30 PM EDT Office Visit [facility] [address] [place] [address] Lia Barnes, SOLAR MECHANICAL ENGINEER [address] [facility] [address] [place] [address] 03/08/2025 1:00 PM EDT Office Visit [facility] [place] [facility] 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, ACCOUNTS SPECIALIST 10/26/2024 10/31/2024 Assessment Noted Time PHQ-9 Depression Total Score: 0 09/01/19 3:26 PM EDT A fall risk assessment has been complete d for the patient 11/29/2024 1:14 PM EDT A Body Mass Index follow-up plan has been documented for the patient 12/10/2024 5:08 PM EDT documented as of this encounter Care Teams Student Activities Director Relationship Specialty Start Date End Date Laurie Gutierrez MD [address] [place] [address] PCP - General 12/09/23 Joshua Martínez MD [address] [place] [address] Consulting Physician Radiation Oncology 09/19/24 Sabine Morales LPN TCM Nurse 11/23/24 12/23/24 documented as of this encounter
--- OUTSIDE RECORDS SUMMARY | 2025-01-04 11:38 | XMS_ITS | Encounter Summary ---
Author Organization Healthcare Address [address] [place] [address] Care Team Providers Care Software Computer Specialist Name Role Phone Laurie Gutierrez MD Primary Care Provider [phone] Joshua Martínez MD Unavailable Sabine Morales LPN Unavailable Unavailable Encounter Details Date Type Department Care Team (Latest Contact Info) Description 12/15/2024 Travel Social History Tobacco Use Types Packs/Day [...] living in a assisted (including now)? No 12/16/2024 CAGE ASSESSMENT Answer [...] first t laurie in the morning (EYE-PIPE FOREMAN) to steady your nerves or to get rid of a hangover? 0 12/02/2024 CAGE Questionnaire Score 0 025 Utilities Answer Date Recorded In the past 12 months has th [employer], gas, oil, or water [employer] threatened to shut off services in your [...] No Risk Indicated 12/15/2024 9:03 PM EDT Ben Reid RN * Question Answer Date of Assessment Author 1. Wish to be (Past 1 Month) No 12/15/2024 9:03 PM EDT Ben Hughes RN 2. Non-Specific Active Suici radha Thoughts (Past 1 Month) No 12/15/2024 9:03 PM EDT Nina Hughes RN 6. Suicidal Behavior (Lifetime) No 9:03 PM EDT Ben Hughes RN documented as of this encounter Plan of Treatment Upcoming Encounters Date Type Department Care Team (Late st Contact Info) Description 01/05/2025 1:00 PM EDT Office Visit [facility] [address] [place] [address] Lia Barnes, CONSUMER SAFETY INSPECTOR [address]01 [facility] [address] [place] [address] 01/10/2025 9:00 AM EDT Clinical Support [facility] 800 [facility], 2nd [place] [address] 01/10/2025 9:40 AM EDT Office Visit [facility] [address] [facility], 2nd [place] [address] Satnam Colvin MD 800 [facility] Nuria [facility] [address] [place] [address] 01/10/2025 12:00 PM EDT Appointment [facility] 1 [address] [place] [address] 01/11/2025 3:30 PM EDT Appointment [facility] 1 [address] [place] [address] 01/12/2025 3:30 PM EDT Appointment [facility] 2 [address] [place] [address] 01/19/2025 9:20 AM EDT Appointment [facility] [address], 1st [place] [address] 01/19/2025 10:45 AM EDT Office Visit [place] [facility] [address], 1st [place] [address] Abhilash Bangura MD [address] [place] [address] 01/26/2025 4:30 PM EDT Office Visit [facility] [address] [facility] [place] [address] Lia Barnes, CONSUMER SAFETY INSPECTOR [address] [facility] [address] [place] [address] 03/08/2025 1:00 PM EDT Office Visit [facility] [place] [facility] 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, INSPECTOR WATCH ASSEMBLY 10/26/2024 10/31/2024 COVID-19 Rule-Out 12/15/2024 12/15/2024 12/16/2024 1:22 AM EDT Respiratory Rule-Out 12/15/2024 12/15/2024 025 2:33 AM EDT Assessment Noted Time PHQ-9 Depression Total Score: 0 09/01/19 25 3:26 PM EDT A fall risk assessment has been complete d for the patient 11/29/2024 1:14 PM EDT A Body Mass Index follow-up plan has been documented for the patient 12/22/2024 2:34 PM EDT documented as of this encounter Care Teams Software Computer Specialist Relationship Specialty Start Date End Date Laurie Gutierrez MD [address] [place] [address] PCP - General 12/09/23 Joshua Martínez MD [address] [place] [address] Consulting Physician Radiation Oncology 09/19/24 Sabine Morales LPN TCM Nurse 11/23/24 12/23/24 documented as of this encounter
--- OUTSIDE RECORDS SUMMARY | 2025-01-04 11:39 | XMS_ITS | Encounter Summary ---
Author Organization Healthcare Address [address] [place] [address] Care Team Providers Care Infant Toddler Lead Teacher Name Role Phone Laurie Gutierrez MD Primary Care Provider [phone] Joshua Martínez MD Unavailable Sabine Morales LPN Unavailable Unavailable Encounter Details Date Type Department Care Team (Latest Contact Info) Description 12/16/2024 Travel Social History Tobacco Use Types Packs/Day [...] in a skilled nursing (including now)? No 12/16/2024 CAGE ASSESSMENT Answer [...] drink first t laurie in the morning (EYE-TEACHER CCLC) to steady your nerves or to get rid of a hangover? 0 12/02/2024 CAGE Questionnaire Score 0 025 Utilities Answer Date Recorded In the past 12 months has th [employer], gas, oil, or water [facility] threatened to shut off services in your [...] Date of Assessment Author No Risk Indicated 12/16/2024 10:30 PM EDT Catherine Carroll RN * Question Answer Date of Assessment Author 1. Wish to be (Past 1 Month) No 12/16/2024 10:30 PM EDT Fracisco Davis RN 2. Non-Specific Active Suicidal Thoughts (Past 1 Month) No 12/16/2024 10:30 PM EDT Fracisco Davis RN 6. Suicidal Behavior (Lifetime) No 12/16/2024 10:30 PM EDT Fracisco Davis RN documented as of this encounter Plan of Treatment Upcoming Encounters Date Type Department Care Team (Late st Contact Info) Description 01/05/2025 1:00 PM EDT Office Visit [facility] [address] [place] [address] Lia Barnes, DATA WAREHOUSING ENGINEER [address]01 [facility] [address] [place] [address] 01/10/2025 9:00 AM EDT Clinical Support [facility] 800 [facility], 2nd [place] [address] 01/10/2025 9:40 AM EDT Office Visit [facility] [address] [facility], 2nd [place] [address] Satnam Colvin MD 800 [facility] [address] [place] [address] 01/10/2025 12:00 PM EDT Appointment [facility] 1 [address] [place] [address] 01/11/2025 3:30 PM EDT Appointment [facility] 1 [address] [place] [address] 01/12/2025 3:30 PM EDT Appointment [facility] 2 [address] [place] [address] 01/19/2025 9:20 AM EDT Appointment [facility] S Radiology [address], 1st [place] [address] 01/19/2025 10:45 AM EDT Office [facility] [place] [facility] [address], 1st [place] [address] Abhilash Bangura MD [address] [place] [address] 01/26/2025 4:30 PM EDT Office Visit [facility] [address] [facility] [place] [address] Lia Barnes, DATA WAREHOUSING ENGINEER [address] [facility] [address] [place] [address] 03/08/2025 1:00 PM EDT Office Visit [facility] [place] [facility] 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
--- OUTSIDE RECORDS SUMMARY | 2025-01-04 11:39 | XMS_ITS ---
Author Organization [facility] Address [address] [place] [address] Care Team Providers Care Dialysis Social Worker Name Role Phone Laurie Gutierrez MD Primary Care Provider [phone] Joshua Martínez MD Unavailable Transitional Care Management Status:Closed (Closed) Start date:12/12/2024 Enrollment date:12/12/2024 Enrollment reason:Identified using hospital discharge data End date:12/23/2024 Close reason:Patient Readmitted Overview This episode type is for outpatient care managers enrolling patients in the [facility] Transitional Care Management program. Continued Care and Services Coordination
--- OUTSIDE RECORDS SUMMARY | 2025-01-04 11:39 | XMS_ITS | Encounter Summary ---
Author Organization [facility] Address [address] [place] [address] Care Team Providers Care Mobile Application Tester Name Role Phone Laurie Gutierrez MD Primary Care Provider [phone] Joshua Martínez MD Unavailable Sabine Morales RESEARCH INTERN Unavailable Unavailable Reason for Visit * Reason Onset Date Comments HCN Clinical Concern/Question 2024 Encounter Details Date Type Department Care Team (Late st Contact Info) Description 2024 Telephone [facility] [place] [facility] [address] [place] [address] Teresita Oconnell MD [address] [place] [address] HCN Clinical Concern/Question Social History [...] living in a long-term (including now)? No 11/21/2024 CAGE ASSESSMENT Answer [...] first t laurie in the morning (EYE-MOTOR REBUILDER) to steady your nerves or to get [...] PM EDT documented as of this encounter Miscellaneous Notes * Telephone Encounter - Teresa Biggs RN - 2024 3:15 PM EDT Called and spoke with patient. Advised her that no sooner appt is available at this time but will place her on a wait list for any cancellations. Patient verbalized understanding. EP Speech Language Pathologist Prn Abraham notified. * Telephone Encounter - Laura Lloyd - 2024 8:58 AM EDT Clinical Concern/Question Reason for Call: Patient would like to schedule a follow up to discuss her recent hospitalization. Best contact number: [phone] (mobile) Optimal time of day to reach caller: [...] Description 01/05/2025 1:00 PM EDT Office Visit [facility] [address] [place] [address] Lia Barnes APRN 3101 [facility] 100 [place] [address] 01/10/2025 9:00 AM EDT Clinical Support Pav [facility] Head[facility] Neck & Respiratory 800 [facility], 2nd [place] [address] 01/10/2025 9:40 AM EDT Office Visit Pav [facility] Head[facility] Neck [facility] Respiratory [address] [facility], 2nd [place] [address] Satnam Colvin MD 800 [facility] [address] [place] [address] 01/10/2025 12:00 PM EDT Appointment [facility] 1 [address] [place] [address] 01/11/2025 3:30 PM EDT Appointment [facility] Infusion Clinic 1 [address] [place] [address] 01/12/2025 3:30 PM EDT Appointment [facility] Infusion Clinic 2 [address] [place] [address] 01/19/2025 9:20 AM EDT Appointment [facility] S Radiology [address], 1st [place] [address] 01/19/2025 10:45 AM EDT [facility] Visit [facility] [address], [address]st [place] [address] Abhilash Bangura MD [address] [place] [address] 01/26/2025 4:30 PM EDT Office Visit [facility] [address] [place] [address] Lia Barnes, PRODUCTION FINISHER [address] [facility] [address] [place] [address] 03/08/2025 1:00 PM EDT Office Visit [facility] [place] [facility] 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, WELDING SPECIALIST 10/26/2024 10/31/2024 Assessment Noted Time PHQ-9 Depression Total Score: 0 09/01/19 25 3:26 PM EDT A fall risk assessment has been complete d for the patient 11/10/2024 2:43 PM EDT A Body Mass Index follow-up plan has been documented for the patient 11/22/2024 4:27 PM EDT documented as of this encounter Care Teams Mobile Application Tester Relationship Specialty Start Date End Date Laurie Gutierrez MD [address] [place] [address] PCP - General 12/09/23 Joshua Martínez MD [address] [place] [phone] Consulting Physician Radiation Oncology 09/19/24 Sabine Morales LPN TCM Nurse 11/23/24 12/23/24 documented as of this encounter
--- OUTSIDE RECORDS SUMMARY | 2025-01-04 11:40 | XMS_ITS | Encounter Summary ---
Author Organization Healthcare Address [address] [place] [address] Care Team Providers Care Fitness Teacher Name Role Phone Laurie Gutierrez MD Primary Care Provider [phone] Joshua Martínez MD Unavailable Sabine Morales LPN Unavailable Unavailable Encounter Details Date Type Department Care Team (Latest Contact Info) Description 11/30/2024 Travel Social History Tobacco Use Types Packs/Day [...] living in a fci (including now)? No 12/01/2024 CAGE ASSESSMENT Answer [...] drink first t laurie in the morning (EYE-MOLD DUMPER) to steady your nerves or to get rid of a hangover? 0 10/27/2024 CAGE Questionnaire Score 0 025 Utilities Answer Date Recorded In the past 12 months has e [employer], gas, oil, or water [employer] threatened to shut off services in your [...] Date of Assessment Author No Risk Indicated 11/30/2024 8:49 PM EDT Marion Kiser * Question Answer Date of Assessment Author 1. Wish to be (Past 1 Month) No 025 8:49 PM EDT Marion Goss 2. Non-Specific Active Suici radha Thoughts (Past 1 Month) No 11/30/2024 8:49 PM EDT Regina Goss 6. Suicidal Behavior (Lifetime) No 8:49 PM EDT Marion Goss documented as of this encounter Plan of Treatment Upcoming Encounters Date Type Department Care Team (Late st Contact Info) Description 01/05/2025 1:00 PM EDT Office Visit [facility] [address] [place] [address] Lia Barnes, DIRECTOR OF CORPORATE SALES [address]01 [facility] [address] [place] [address] 01/10/2025 9:00 AM EDT Clinical Support Pav [facility] [address] [facility], 2nd [place] [address] 01/10/2025 9:40 AM EDT Office Visit Pav [facility] [address] [facility], 2nd [place] [address] Satnam Colvin MD 800 [facility] [address] [place] [address] 01/10/2025 12:00 PM EDT Appointment [facility] 1 [address] [place] [address] 01/11/2025 3:30 PM EDT Appointment [facility] 1 [address] [place] [address] 01/12/2025 3:30 PM EDT Appointment [facility] 2 [address] [place] [address] 01/19/2025 9:20 AM EDT Appointment [facility] S Radiology [address], 1st [place] [address] 01/19/2025 10:45 AM EDT Office Visit [facility] [address], 1st [place] [address] Abhilash Bangura MD [address] [place] [address] 01/26/2025 4:30 PM EDT Office Visit [facility] [address] [place] [address] Lia Barnes, DIRECTOR OF CORPORATE SALES [address] [facility] [address] [place] [address] 03/08/2025 1:00 PM EDT Office Visit [facility] [place] [facility] 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, DOCUMENT REVIEW SPECIALIST 10/26/2024 10/31/2024 COVID-19 Rule-Out 11/30/2024 11/30/2024 11/30/2024 4:02 AM EDT Respiratory Rule-Out 11/30/2024 11/30/2024 025 5:05 AM EDT Assessment Noted Time PHQ-9 Depression Total Score: 0 09/01/19 25 3:26 PM EDT A fall risk assessment has been complete d for the patient 11/29/2024 1:14 PM EDT A Body Mass Index follow-up plan has been documented for the patient 12/10/2024 5:08 PM EDT documented as of this encounter Care Teams Fitness Teacher Relationship Specialty Start Date End Date Laurie Gutierrez MD [address] [place] [address] PCP - General 12/09/23 Joshua Martínez MD [address] [place] [address] Consulting Physician Radiation Oncology 09/19/24 Sabine Morales LPN TCM Nurse 11/23/24 12/23/24 documented as of this encounter
--- OUTSIDE RECORDS SUMMARY | 2025-01-04 11:40 | XMS_ITS | Encounter Summary ---
Author Organization Healthcare Address [address] [place] [address] Care Team Providers Care Chemical Blender Name Role Phone Laurie Gutierrez MD Primary Care Provider [phone] Joshua Martínez MD Unavailable Encounter Details Date [...] first t laurie in the morning (EYE-SUPERVISOR SCENIC ARTS) to steady your nerves or to get rid of a hangover? 0 10/27/2024 CAGE Questionnaire Score 0 025 Utilities Answer Date Recorded In the past 12 months has th e [employer], gas, oil, or water company threatened to [...] 01/05/2025 1:00 PM EDT Office Visit [facility] [address] [place] [address] Lia Barnes, SECOND BAKER 3101 [facility] [address] [place] [address] 01/10/2025 9:00 AM EDT Clinical Support Pav [facility] Head[facility] Neck [facility] Respiratory 800 [facility], 2nd [place] [address] 01/10/2025 9:40 AM EDT Office Visit Pav [facility] Head[facility] Respiratory [address] [facility], 2nd [place] [address] Satnam Colvin MD 800 [facility] [address] [place] [address] 01/10/2025 12:00 PM EDT Appointment [facility] 1 [address] [place] [address] 01/11/2025 3:30 PM EDT Appointment [facility] 1 [address] [place] [address] 01/12/2025 3:30 PM EDT Appointment [facility] 2 [address] [place] [address] 01/19/2025 9:20 AM EDT Appointment [facility] S Radiology [address], [address]st [place] [address] 01/19/2025 10:45 AM EDT Office Visit [place] [facility] [address], [address]st [place] [address] Abhilash Bangura MD [address] [place] [address] 01/26/2025 4:30 PM EDT Office Visit [facility] [address] [place] [address] Lia Barnes, SECOND BAKER [address] [facility] [address] [place] [address] 03/08/2025 1:00 PM EDT Office Visit [facility] [place] [facility] 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, LINUX SYSTEM ADMIN 10/26/2024 10/31/2024 Assessment Noted Time PHQ-9 Depression Total Score: 0 09/01/19 25 3:26 PM EDT A fall risk assessment has been complete d for the patient 11/08/2024 2:02 PM EDT A Body Mass Index follow-up plan has been documented for the patient 11/08/2024 5:14 PM EDT documented as of this encounter Care Teams Chemical Blender Relationship Specialty Start Date End Date Laurie Gutierrez MD [address] [place], [place] [phone] PCP - General 12/09/23 Joshua Martínez MD [address] [place] [address] Consulting Physician Radiation Oncology 09/19/24 documented as of this encounter
--- OUTSIDE RECORDS SUMMARY | 2025-01-04 11:40 | XMS_ITS | Encounter Summary ---
Author Organization Healthcare Address [address] [place] [address] Care Team Providers Care Highway Patrol Pilot Name Role Phone Laurie Gutierrez MD Primary Care Provider [phone] Joshua Martínez MD Unavailable Encounter Details Date Type Department Care Team (Late st Contact Info) Description 11/07/2024 Orders Only [facility] CC Radiation [address] [place] [address] Radiation Oncology, Physician, [facility] [place] [phone] Social History Tobacco Use Types Packs/Day Years [...] drink first t laurie in the morning (EYE-PERSONNEL REPRESENTATIVE) to steady your nerves or to [...] Description 01/05/2025 1:00 PM EDT Office Visit [facility] [address] [place] [address] Lia Barnes, DELICATE FABRICS PRESSER [address] [facility] 100 [place] [address] 01/10/2025 9:00 AM EDT Clinical Support Pav [facility] Head[facility] Neck [facility] Respiratory [address], 2nd [place] [address] 01/10/2025 9:40 AM EDT Office Visit Pav [facility] Respiratory [address] [facility], 2nd [place] [address] Satnam Colvin MD [address] [place] [address] 01/10/2025 12:00 PM EDT Appointment [facility] 1 [address] [place] [address] 01/11/2025 3:30 PM EDT Appointment [facility] 1 [address] [place] [address] 01/12/2025 3:30 PM EDT Appointment [facility] 2 [address] [place] [address] 01/19/2025 9:20 AM EDT Appointment [facility] S Radiology [address], 1st [place] [address] 01/19/2025 10:45 AM EDT Office Visit [place] [facility] [address], 1[address] [place] [address] Abhilash Bangura MD [address] [place] [address] 01/26/2025 4:30 PM EDT Office Visit [facility] [address]01 [facility] [place] [address] Lia Barnes, DELICATE FABRICS PRESSER 3101 [facility] [address] [place] [address] 03/08/2025 1:00 PM EDT Office Visit [facility] [place] [facility] [address] 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, GLASS SMOOTHER 10/26/2024 10/31/2024 Assessment Noted Time PHQ-9 Depression Total Score: 0 09/01/19 25 3:26 PM EDT A fall risk assessment has been complete d for the patient 10/06/2024 2:29 PM EDT A Body Mass Index follow-up plan has been documented for the patient 10/31/2024 4:09 PM EDT documented as of this encounter Care Teams Highway Patrol Pilot Relationship Specialty Start Date End Date Laurie Gutierrez MD [address] [place] [address] PCP - General 12/09/23 Joshua Martínez MD [address] [place] [address] Consulting Physician Radiation Oncology 09/19/24 documented as of this encounter
--- OUTSIDE RECORDS SUMMARY | 2025-01-04 11:40 | XMS_ITS | Encounter Summary ---
Author Organization Healthcare Address [address] [place] [address] Care Team Providers Care Visual Training Aide Name Role Phone Laurie Gutierrez MD Primary Care Provider Joshua Martínez MD Unavailable Sabine Morales LPN Unavailable Unavailable Encounter Details Date Type Department Care Team (Latest Contact Info) Description 11/29/2024 Travel Social History Tobacco Use Types Packs/Day [...] first t laurie in the morning (EYE-POULTRY DRESSER) to steady your nerves or to get rid of a hangover? 0 10/27/2024 CAGE Questionnaire Score 0 025 Utilities Answer Date Recorded In the past 12 months has th [employer], gas, oil, or water [employer] threatened to shut off services in your [...] Month) No 025 4:53 PM EDT Carmencita Harrington, JOSE MARTIN 2. Non-Specific Active Suici radha Thoughts (Past 1 Month) No 11/29/2024 4:53 PM EDT Faith Harrington sa, RN 6. Suicidal Behavior (Lifetime) No 4:53 PM EDT Carmencita Harrington RN documented as of this encounter Plan of Treatment Upcoming Encounters Date Type Department Care Team (Late st Contact Info) Description 01/05/2025 1:00 PM EDT Office Visit [facility] [address] [place] [address] Lia Barnes, DIALS INSPECTOR 3101 [facility] 100 [place] [address] 01/10/2025 9:00 AM EDT Clinical Support Pav [facility] Respiratory 800 [facility], 2nd [place] [address] 01/10/2025 9:40 AM EDT Office Visit Pav [facility] Respiratory [address] [facility], 2nd [place] [address] Satnam Colvin MD 800 [facility] [address] [facility] 134 [place] [address] 01/10/2025 12:00 PM EDT Appointment [facility] 1 [address] [place] [address] 01/11/2025 3:30 PM EDT Appointment [facility] 1 [address] [place] [address] 01/12/2025 3:30 PM EDT Appointment [facility] 2 [address] [place] [address] 01/19/2025 9:20 AM EDT Appointment [facility] S Radiology [address], 1st [place] [address] 01/19/2025 10:45 AM EDT Office Visit [place] [facility] [address], [address] [place] [address] Abhilash Bangura MD [address] [place] [address] 01/26/2025 4:30 PM EDT Office Visit [facility] [address] [facility] [address] Lia Barnes, SHARDA [address] [facility] [address] [place] [address] 03/08/2025 1:00 PM EDT Office Visit [facility] [place] [facility] 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 PLANT OPERATOR 10/26/2024 10/31/2024 Assessment Noted Time PHQ-9 Depression Total Score: 0 09/01/19 25 3:26 PM EDT A fall risk assessment has been complete d for the patient 11/29/2024 1:14 PM EDT A Body Mass Index follow-up plan has been documented for the patient 12/10/2024 5:08 PM EDT documented as of this encounter Care Teams Visual Training Aide Relationship Specialty Start Date End Date Laurie Gutierrez MD [address] [place] [address] PCP - General 12/09/23 Joshua Martínez MD [address] [address] Consulting Physician Radiation Oncology 09/19/24 Sabine Morales LPN TCM Nurse 11/23/24 12/23/24 documented as of this encounter
--- OUTSIDE RECORDS SUMMARY | 2025-01-04 11:40 | XMS_ITS | Encounter Summary ---
Author Organization Healthcare Address [address] [place] [address] Care Team Providers Care Foxpro Developer Name Role Phone Laurie Gutierrez MD Primary Care Provider [phone] Joshua Martínez MD Unavailable Encounter Details Date Type Department Care Team (Late st Contact Info) Description 11/07/2024 Orders Only [facility] CC Radiation [id number] [place] [address] Radiation Oncology, Physician, [facility] [place] [id number] Social History Tobacco Use Types Packs/Day Years [...] first t laurie in the morning (EYE-MACHINE JOINER CEMENTER) to steady your nerves or to get [...] Description 01/05/2025 1:00 PM EDT [facility] [address] [place] [address] Lia Barnes, SCHEDULE MANAGER 3101 [facility] 100 [place] [address] 01/10/2025 9:00 AM EDT Clinical Support [facility] Head[facility] Neck & Respiratory [address], 2nd [place] [address] 01/10/2025 9:40 AM EDT Office Visit [facility] [address] [facility], 2nd [place] [address] Satnam Colvin MD [address] [place] [address] 01/10/2025 12:00 PM EDT Appointment [facility] 1 [address] [place] [address] 01/11/2025 3:30 PM EDT Appointment [facility] 1 [address] [place] [address] 01/12/2025 3:30 PM EDT Appointment [facility] 2 [address] [place] [address] 01/19/2025 9:20 AM EDT Appointment P[facility] S Radiology [address], 1st [place] [address] 01/19/2025 10:45 AM EDT [facility] [place] [facility] [address], 1st [place] [address] Abhilash Bangura MD [address] [place] [address] 01/26/2025 4:30 PM EDT [facility] Visit [facility] [address] [facility] [place] [address] Lia Barnes, SCHEDULE MANAGER 3101 [facility] [address] [place] [address] 03/08/2025 1:00 PM EDT Office Visit [facility] [place] [address] [facility] [place] [address] Teresita Oconnell MD [address] [place] [phone] documented as of this encounter Procedures Procedure [...] Bacteri al Infection Comment:Pseudomonas aeruginosa MDR, PLANT OPERATIONS VICE PRESIDENT 10/26/2024 10/31/2024 Assessment Noted Time PHQ-9 Depression Total Score: 0 09/01/19 25 3:26 PM EDT A fall risk assessment has been complete d for the patient 10/06/2024 2:29 PM EDT A Body Mass Index follow-up plan has been documented for the patient 10/31/2024 4:09 PM EDT documented as of this encounter Care Teams Foxpro Developer Relationship Specialty Start Date End Date Laurie Gutierrez MD [address] [place] [address] PCP - General 12/09/23 Joshua Martínez MD [address] [place] [address] Consulting Physician Radiation Oncology 09/19/24 documented as of this encounter
--- OUTSIDE RECORDS SUMMARY | 2025-01-04 11:40 | XMS_ITS | Encounter Summary ---
Author Organization Healthcare Address [address] [place] [address] Care Team Providers Care Director Of Market Intelligence Name Role Phone Laurie Gutierrez MD Primary Care Provider [phone] Joshua Martínez MD Unavailable Reason for Visit * Reason Comments Distress Screen Follow-up Encounter Details Date Type Department Care Team ([facility] st Contact Info) Description 11/08/2024 Social Work Psych Oncology [address] [place] [address] Mariah Rowley Social History Tobacco Use Types [...] drink first t laurie in the morning (EYE-TOWER CRANE OPERATOR) to steady your nerves or to [...] Person Disease Status: Established Patient Clinic Location: [facility] Disease Type: Lung & Bronchus Services Provided: Gift / Gas Card Gift Card Type: ACS Transportation Talat Gift Card Amount: 50 Education Provided: Lodging Intervention Level: 2 Units (1 unit = 15 minutes): 2 Narrative: DIRECTOR EMBALMER met with pt and sister prior to appt to follow up on DT screen. DIRECTOR EMBALMER introduced self and non urgent nature of visit. Pt stated she is doing okay but both asked about upcoming radiation treatments and whether or not those would be extended. DIRECTOR EMBALMER explained that pt's radiation will not be extended but that DIRECTOR EMBALMER had spoken to pt's care team and pt is due to return on 11/29-12/01 for more infusions. Pt asked about staying at [facility] and DIRECTOR EMBALMER encouraged pt to reach out to [facility] to complete a self referral which pt agreeable to doing. Pt also asked about possible fuel and utility assistance.DIRECTOR EMBALMER explained [address] and stated that pt would just need to bring in the bills she is wantingpaid. DIRECTOR EMBALMER also explained that DIRECTOR EMBALMER could bring over some ACS cards to pt in infusion. DIRECTOR EMBALMER encouragedboth to reach out should any further needs arise or should they have issues when making a self referral to the [facility]. Both voiced understanding and appreciation for the assistance. No further needs identified. DIRECTOR EMBALMER to remain available for any ongoing needs or support. DIRECTOR EMBALMER met with pt while in infusion to provide pt with 50.00 in ACS cards. Mariah Rowley, PROGRESSIVE CARE MANAGER, DIRECTOR EMBALMER [facility] documented in this encounter Plan of Treatment Upcoming Encounters Date Type Department Care Team (Late st Contact Info) Description 01/05/2025 1:00 PM EDT Office Visit [facility] [address] [place] [address] Lia Barnes, BULLARD OPERATOR 3101 [facility] [address] [place] [address] 01/10/2025 9:00 AM EDT Clinical Support [facility] Neck & Respiratory 800 [facility], 2nd [place] [address] 01/10/2025 9:40 AM EDT Office Visit [facility] Head[facility] Neck & Respiratory 800 [facility], 2nd [place] [address] Satnam Colvin MD 800 [facility] [address] [place] [address] 01/10/2025 12:00 PM EDT Appointment [facility] 1 [address] [place] [address] 01/11/2025 3:30 PM EDT Appointment [facility] 1 [address] [place] [address] 01/12/2025 3:30 PM EDT Appointment [facility] 2 [address] [place] [address] 01/19/2025 9:20 AM EDT Appointment P[facility] S Radiology [address], 1st [place] [address] 01/19/2025 10:45 AM EDT Office [facility] [place] [facility] [address], 1st [place] [address] Abhilash Bangura MD [address] [place] [address] 01/26/2025 4:30 PM EDT Office Visit [facility] [address] [place] [address] Lia Barnes, BULLARD OPERATOR 3101 [facility] [address] [place] [address] 03/08/2025 1:00 PM EDT Office Visit [facility] [place] 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, INSULATION EXTRUDER OPERATOR 10/26/2024 10/31/2024 Assessment Noted Time PHQ-9 Depression Total Score: 0 09/01/19 3:26 PM EDT A fall risk assessment has been complete d for the patient 11/08/2024 2:02 PM EDT A Body Mass Index follow-up plan has been documented for the patient 11/08/2024 5:14 PM EDT documented as of this encounter Care Teams Director Of Market Intelligence Relationship Specialty Start Date End Date Laurie Gutierrez MD [address] [place] [address] PCP - General 12/09/23 Joshua Martínez MD [address] [place] [phone] Consulting Physician Radiation Oncology 09/19/24 documented as of this encounter
--- OUTSIDE RECORDS SUMMARY | 2025-01-04 11:40 | XMS_ITS | Encounter Summary ---
Author Organization Healthcare Address [address] [place] [address] Care Team Providers Care Defective Cigarette Slitter Name Role Phone Laurie Gutierrez MD Primary Care Provider [phone] Joshua Martínez MD Unavailable Sabine Morales LPN Unavailable Unavailable Encounter Details Date Type Department Care Team (Latest Contact Info) Description 12/01/2024 Travel Social History Tobacco Use Types Packs/Day [...] living in a long-term (including now)? No 12/01/2024 CAGE ASSESSMENT Answer [...] drink first t laurie in the morning (EYE-SHANKER OUT) to steady your nerves or to get rid of a hangover? 0 12/02/2024 CAGE Questionnaire Score 0 025 Utilities Answer Date Recorded In the past 12 months has e [employer], gas, oil, or water company threatened to [...] Description 01/05/2025 1:00 PM EDT Office Visit [facility] [address] [place] [address] Lia Barnes, MATTRESS WEAVER 3101 [facility] 100 [place] [address] 01/10/2025 9:00 AM EDT Clinical Support [facility] Head[facility] Neck & Respiratory 800 [facility], 2nd [place] [address] 01/10/2025 9:40 AM EDT Office Visit [facility] Head[facility]ck [facility] Respiratory [address]nd [place] [address] Satnam Colvin MD 800 [facility] [address] [place] [address] 01/10/2025 12:00 PM EDT Appointment [facility] 1 [address] [place] [address] 01/11/2025 3:30 PM EDT Appointment [facility] 1 [address] [place] [address] 01/12/2025 3:30 PM EDT Appointment [facility] 2 [address] [place] [address] 01/19/2025 9:20 AM EDT Appointment P[facility] S Radiology [address], 1st [place] [address] 01/19/2025 10:45 AM EDT Office [facility] [place] [facility] [address], 1st [place] [address] Abhilash Bangura MD [address] [place] [address] 01/26/2025 4:30 PM EDT Office Visit [facility] [address]01 [facility] [place] [address] Lia Barnes, MATTRESS WEAVER [address]01 [facility] [address] [place] [address] 03/08/2025 1:00 PM EDT Office Visit [facility] [place] 800 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, SENIOR RESEARCH EXECUTIVE 10/26/2024 10/31/2024 Assessment Noted Time PHQ-9 Depression Total Score: 0 09/01/19 3:26 PM EDT A fall risk assessment has been complete d for the patient 11/29/2024 1:14 PM EDT A Body Mass Index follow-up plan has been documented for the patient 12/10/2024 5:08 PM EDT documented as of this encounter Care Teams Defective Cigarette Slitter Relationship Specialty Start Date End Date Laurie Gutierrez MD [address] [place] [address] PCP - General 12/09/23 Joshua Martínez MD [address] [place] [address] Consulting Physician Radiation Oncology 09/19/24 Sabine Morales LPN TCM Nurse 11/23/24 12/23/24 documented as of this encounter
--- OUTSIDE RECORDS SUMMARY | 2025-01-04 11:41 | XMS_ITS ---
Author Organization [facility] Address [address] [place] [address] Care Team Providers Care Plasma Processing Centrifuge Operator Name Role Phone Laurie Gutierrez MD Primary Care Provider [phone] Joshua Martínez MD Unavailable LINK Program Status:Closed (Closed) Start date:11/21/2024 Enrollment date:11/21/2024 End date:11/21/2024 Close reason:Not Eligible Overview Patient identified for LINK program. Program was closed at the time of review. Following chart review, patient determined to be ineligible based on program criteria. Continued Care and Services Coordination
--- OUTSIDE RECORDS SUMMARY | 2025-01-04 11:41 | XMS_ITS | Encounter Summary ---
Author Organization Healthcare Address [address] [place] [address] Care Team Providers Care Astro Technician Name Role Phone Laurie Gutierrez MD Primary Care Provider [phone] Joshua Martínez MD Unavailable Encounter Details Date [...] drink first t laurie in the morning (EYE-ATHLETIC COACH) to steady your nerves or to get [...] Description 01/05/2025 1:00 PM EDT Office Visit [facility] [address] [place] [address] Lia Barnes, MASTER CONTROL ENGINEER 3101 [facility] [address] [place] [address] 01/10/2025 9:00 AM EDT Clinical Support Pav CC Head[facility] Neck [facility] Respiratory 800 [facility], 2nd [place] [address] 01/10/2025 9:40 AM EDT Office Visit [facility] Head[facility]ck [facility] Respiratory [address] [facility], 2nd [place] [address] Satnam Colvin MD [address] [facility] [address] [place] [address] 01/10/2025 12:00 PM EDT Appointment [facility] 1 [address] [place] [address] 01/11/2025 3:30 PM EDT Appointment [facility] 1 [address] [place] [address] 01/12/2025 3:30 PM EDT Appointment [facility] 2 [address] [place] [address] 01/19/2025 9:20 AM EDT Appointment PAV S Radiology [address], 1st [place] [address] 01/19/2025 10:45 AM EDT Office Visit [place] [facility] [address], 1st [place] [address] Abhilash Bangura MD [address] [place] [address] 01/26/2025 4:30 PM EDT Office Visit [facility] 3101 [facility] [place] [address] Lia Barnes, MASTER CONTROL ENGINEER 3101 [facility] [address] [place] [address] 03/08/2025 1:00 PM EDT Office Visit [facility] [place] [address] 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 10/26/2024 10/31/2024 Assessment Noted Time PHQ-9 Depression Total Score: 0 09/01/19 3:26 PM EDT A fall risk assessment has been complete d for the patient 11/09/2024 2:52 PM EDT A Body Mass Index follow-up plan has been documented for the patient 11/08/2024 5:14 PM EDT documented as of this encounter Care Teams Astro Technician Relationship Specialty Start Date End Date Laurie Gutierrez MD [address] [place] [address] PCP - General 12/09/23 Joshua Martínez MD [address] [place] [phone] Consulting Physician Radiation Oncology 09/19/24 documented as of this encounter
--- OUTSIDE RECORDS SUMMARY | 2025-01-04 11:42 | XMS_ITS | Encounter Summary ---
Author Organization Healthcare Address [address] [place] [address] Care Team Providers Care Paving Plant Operator Name Role Phone Laurie Gutierrez MD Primary Care Provider [phone] Joshua Martínez MD Unavailable Encounter Details Date [...] any time in the past 12 m [facility], were you homeless or living [...] any time in the past 12 m [facility], were you homeless or living [...] drink first t laurie in the morning (EYE-HEADER MACHINE OPERATOR) to steady your nerves or to get rid of a hangover? 0 10/27/2024 CAGE Questionnaire Score 0 025 Utilities Answer Date Recorded In the past 12 months has th [employer], gas, oil, or water company threatened to [...] Description 01/05/2025 1:00 PM EDT Office Visit [facility] [address] [place] [address] Lia Barnes, TABLE SETTER [address] [facility] 100 [place] [address] 01/10/2025 9:00 AM EDT Clinical Support Pav CC Head, Neck & Respiratory 800 [facility], 2nd [place] [address] 01/10/2025 9:40 AM EDT Office Visit Pav [facility] Head[facility] Neck [facility] Respiratory 800 [facility], 2nd [place] [address] Satnam Colvin MD [address] [place] [address] 01/10/2025 12:00 PM EDT Appointment [facility] 1 [address] [place] [address] 01/11/2025 3:30 PM EDT Appointment [facility] 1 [address] [place] [address] 01/12/2025 3:30 PM EDT Appointment [facility] 2 [address] [place] [address] 01/19/2025 9:20 AM EDT Appointment P[facility] S Radiology [address], 1st [place] [address] 01/19/2025 10:45 AM EDT [facility] [address], 1st [place] [address] Abhilash Bangura MD [address] [place] [address] 01/26/2025 4:30 PM EDT Office Visit [facility] [address]01 [facility] [place] [address] Lia Barnes, TABLE SETTER 3101 [facility] [address] [place] [address] 03/08/2025 1:00 PM EDT Office Visit [facility] [place] 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 SOCIAL MEDIA & MOBILE MANAGER 10/26/2024 10/31/2024 Assessment Noted Time PHQ-9 Depression Total Score: 0 09/01/19 3:26 PM EDT A fall risk assessment has been complete d for the patient 10/06/2024 2:29 PM EDT A Body Mass Index follow-up plan has been documented for the patient 10/31/2024 4:09 PM EDT documented as of this encounter Care Teams Paving Plant Operator Relationship Specialty Start Date End Date Laurie Gutierrez MD [address] [place] [address] PCP - General 12/09/23 Joshua Martínez MD [address] [place], [place] [address]D [place] [address] Consulting Physician Radiation Oncology 09/19/24 documented as of this encounter
--- OUTSIDE RECORDS SUMMARY | 2025-01-04 11:42 | XMS_ITS | Encounter Summary ---
Author Organization Healthcare Address [address] [place] [address] Care Team Providers Care Junior Project Manager Name Role Phone Laurie Gutierrez MD Primary Care Provider [phone] Joshua Martínez MD Unavailable Paradise Pacheco RN Unavailable Unavailab le Encounter Details Date Type Department Care Team (Late st Contact Info) Description 11/15/2024 Orders Only External Location [address] [place] [address] Provider, External Social History Tobacco Use Types [...] any time in the past 12 m [facility], were you homeless or living [...] any time in the past 12 m [facility], were you homeless or living [...] drink first t laurie in the morning (EYE-SMALL BUSINESS REPRESENTATIVE) to steady your nerves or to [...] Description 01/05/2025 1:00 PM EDT Office Visit [facility] [address] [facility] [place] [address] Lia Barnes, LEAD ACCOUNTANT 3101 [facility] [address] [place] [address] 01/10/2025 9:00 AM EDT Clinical Support [facility] Head[facility] Neck & Respiratory 800 [facility], 2nd [place] [address] 01/10/2025 9:40 AM EDT Office Visit [facility] Head[facility] Neck [facility] Respiratory 800 [facility], 2nd [place] [address] Satnam Colvin MD [address] [facility] [address] [place] [address] 01/10/2025 12:00 PM EDT Appointment [facility] 1 [address] [place] [address] 01/11/2025 3:30 PM EDT Appointment [facility] 1 [address] [place] [address] 01/12/2025 3:30 PM EDT Appointment [facility] 2 [address] [place] [address] 01/19/2025 9:20 AM EDT Appointment [facility] S Radiology [address], 1st [place] [address] 01/19/2025 10:45 AM EDT [facility] [place] [facility] [address], 1st [place] [address] Abhilash Bangura MD [address] [place] [address] 01/26/2025 4:30 PM EDT Office Visit [facility] [address] [facility] [place] [address] Lia Barnes, SHARDA [address] [facility] [address] [place] [address] 03/08/2025 1:00 PM EDT Office Visit [facility] [place] [address] [place] [address] Teresita Oconnell MD [address] [place] [address] documented as of this encounter Procedures Procedure Name Priority Date/Time Associated Diagnosis Comments CT OUTSIDE IMAGES 11/15/2024 2:38 PM EDT documented in this encounter Results * CT OUTSIDE IMAGES (11/15/2024 2:38 PM EDT) Anatomical Region Laterality Modality Computed Tomogra phy 11/15/2024 2:38 PM EDT us External Provider IMG CT PROCEDURES Final Result documented in this encounter Visit Diagnoses Not on filedocumented in this encounter Additional Health Concerns Infection Onset Date Last Indicated Resolved Time 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, MAGNETO REPAIRER 10/26/2024 10/31/2024 Assessment Noted Time PHQ-9 Depression Total Score: 0 09/01/19 25 3:26 PM EDT A fall risk assessment has been complete d for the patient 11/10/2024 2:43 PM EDT A Body Mass Index follow-up plan has been documented for the patient 11/08/2024 5:14 PM EDT documented as of this encounter Care Teams Junior Project Manager Relationship Specialty Start Date End Date Laurie Gutierrez MD [address] [place] [address] PCP - General 12/09/23 Joshua Martínez MD [address] [place] [address] Consulting Physician Radiation Oncology 09/19/24 Paradise Pacheco, RN CH-VASCULAR & INTERVENTIONAL RADIOLOGY Registered Nurse 11/21/24 11/21/24 documented as of this encounter
--- OUTSIDE RECORDS SUMMARY | 2025-01-04 11:42 | XMS_ITS | Encounter Summary ---
Author Organization Healthcare Address [address] [place] [address] Care Team Providers Care Publications Editor Name Role Phone Laurie Gutierrez MD Primary Care Provider [phone] Joshua Martínez MD Unavailable Paradise Pacheco RN Unavailable Unavailab le Encounter Details Date Type Department Care Team (Late st Contact Info) Description 11/15/2024 Orders Only External Location [address] [place] [address] Provider, External Social History Tobacco Use Types [...] any time in the past 12 m [facility], were you homeless or living [...] any time in the past 12 m [facility], were you homeless or living [...] first t laurie in the morning (EYE-CLINICAL RESEARCH ASSOCIATE) to steady your nerves or to [...] Description 01/05/2025 1:00 PM EDT Office Visit [facility] [address] [facility] [place] [address] Lia Barnes, NOVELTY CANDY MAKER [address] [facility] [address] [place] [address] 01/10/2025 9:00 AM EDT Clinical Support [facility] [address] [facility], 2nd [place] [address] 01/10/2025 9:40 AM EDT Office Visit [facility] [address] [facility], 2nd [place] [address] Satnam Colvin MD [address] [facility] [address] [place] [address] 01/10/2025 12:00 PM EDT Appointment [facility] 1 [address] [place] [address] 01/11/2025 3:30 PM EDT Appointment [facility] 1 [address] [place] [address] 01/12/2025 3:30 PM EDT Appointment [facility] 2 [address] [place] [address] 01/19/2025 9:20 AM EDT Appointment [facility] [address], 1st [place] [phone] 01/19/2025 10:45 AM EDT Office Visit [place] [facility] [address], [address]st [place] [address] Abhilash Bangura MD [address] [place] [address] 01/26/2025 4:30 PM EDT Office Visit [facility] [address] [facility] [place] [address] Lia Barnes, SHARDA [address] [facility] [address] [place] [address] 03/08/2025 1:00 PM EDT Office Visit [facility] [place] 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, UNDERGROUND ELECTRICIAN 10/26/2024 10/31/2024 Assessment Noted Time PHQ-9 Depression Total Score: 0 09/01/19 25 3:26 PM EDT A fall risk assessment has been complete d for the patient 11/10/2024 2:43 PM EDT A Body Mass Index follow-up plan has been documented for the patient 11/08/2024 5:14 PM EDT documented as of this encounter Care Teams Publications Editor Relationship Specialty Start Date End Date Laurie Gutierrez MD [address] [place] [address] PCP - General 12/09/23 Joshua Martínez MD [address] [place] [address] Consulting Physician Radiation Oncology 09/19/24 Paradise Pacheco, RN CH-VASCULAR & INTERVENTIONAL RADIOLOGY Registered Nurse 11/21/24 11/21/24 documented as of this encounter
--- OUTSIDE RECORDS SUMMARY | 2025-01-04 11:42 | XMS_ITS | Encounter Summary ---
Author Organization Healthcare Address [address] [place] [address] Care Team Providers Care Transistor Tester Name Role Phone Laurie Gutierrez MD Primary Care Provider [phone] Joshua Martínez MD Unavailable Paradise Pacheco RN Unavailable Unavailab le Encounter Details Date Type Department Care Team (Late st Contact Info) Description 11/15/2024 Orders Only External Location [address] [place] [address] Regina Katz, PROTECTIVE SIGNAL REPAIRER HELPER [address] [place] [address] Social History Tobacco Use Types [...] drink first t laurie in the morning (EYE-VIDEO CONTROL OPERATOR) to steady your nerves or to [...] EDT Office Visit [facility] [address] [place] [address] Lia Barnes, PROTECTIVE SIGNAL REPAIRER HELPER [address] [facility] [address] [place] [address] 01/10/2025 9:00 AM EDT Clinical Support [facility] [address] [facility], 2nd [place] [address] 01/10/2025 9:40 AM EDT Office Visit [facility] [address] [facility], 2nd [place] [address] Satnam Colvin MD [address] [facility] [address] [facility] [address] [place] [address] 01/10/2025 12:00 PM EDT Appointment [facility] 1 [address] [place] [address] 01/11/2025 3:30 PM EDT Appointment [facility] 1 [address] [place] [address] 01/12/2025 3:30 PM EDT Appointment [facility] 2 [address] [place] [address] 01/19/2025 9:20 AM EDT Appointment [facility] [address], [address]st [place] [address] 01/19/2025 10:45 AM EDT Office Visit [place] [facility] [address], [address] [place] [address] Abhilash Bangura MD [address] [place] [address] 01/26/2025 4:30 PM EDT Office Visit [facility] [address] [facility] [place] [address] Lia Barnes APRN [address] [facility] [address] [place] [address] 03/08/2025 1:00 PM EDT Office Visit [facility] [place] [address] [place] [address] Teresita Oconnell MD [address] [place] [address] documented as of this encounter Procedures Procedure Name Priority Date/Time Associated Diagnosis Comments CT OUTSIDE IMAGES 11/15/2024 2:38 PM EDT documented in this encounter Results * CT OUTSIDE IMAGES (11/15/2024 2:38 PM EDT) Anatomical Region Laterality Modality Computed Tomogra phy 11/15/2024 2:38 PM EDT Regina Katz PROTECTIVE SIGNAL REPAIRER HELPER IMG CT PROCEDURES Final Res ult documented in this encounter Visit Diagnoses Not on filedocumented in this encounter Additional Health Concerns Infection Onset Date Last Indicated Resolved Time 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, FLIGHT ATTENDANT INFLIGHT SERVICES 10/26/2024 10/31/2024 Assessment Noted Time PHQ-9 Depression Total Score: 0 09/01/19 25 3:26 PM EDT A fall risk assessment has been complete d for the patient 11/10/2024 2:43 PM EDT A Body Mass Index follow-up plan has been documented for the patient 11/08/2024 5:14 PM EDT documented as of this encounter Care Teams Transistor Tester Relationship Specialty Start Date End Date Laurie Gutierrez MD [address] [place] [address] PCP - General 12/09/23 Joshua Martínez MD [address] [id number] Consulting Physician Radiation Oncology 09/19/24 Paradise Pacheco, RN CH-VASCULAR & INTERVENTIONAL RADIOLOGY Registered Nurse 11/21/24 11/21/24 documented as of this encounter
--- OUTSIDE RECORDS SUMMARY | 2025-01-04 11:42 | XMS_ITS ---
Author Organization [facility] Address [address] [place] [address] Care Team Providers Care Care Technician Name Role Phone Laurie Gutierrez MD Primary Care Provider [phone] Joshua Martínez MD Unavailable Transitional Care Management Status:Closed (Closed) Start date:11/23/2024 Enrollment reason:Identified using hospital discharge data End date:12/12/2024 Close reason:Patient Readmitted Overview This episode type is for outpatient care managers enrolling patients in the CMS Transitional Care Management program. Continued Care and Services Coordination
--- OUTSIDE RECORDS SUMMARY | 2025-01-04 11:42 | XMS_ITS | Encounter Summary ---
Author Organization Healthcare Address [address] [place] [address] Care Team Providers Care Marketing Technology Specialist Name Role Phone Laurie Gutierrez MD Primary Care Provider [phone] Joshua Martínez MD Unavailable Paradise Pacheco RN Unavailable Unavailab le Encounter Details Date Type Department Care Team (Late st Contact Info) Description 11/15/2024 Orders Only External Location [address] [place] [address] Provider, External Social History Tobacco Use Types [...] any time in the past 12 m [facility], were you homeless or living in a [...] any time in the past 12 m [facility], were you homeless or living in a penitentiary (including now)? No 11/21/2024 CAGE ASSESSMENT Answer [...] drink first t laurie in the morning (EYE-WASHCLOTH FOLDER) to steady your nerves or to get [...] Description 01/05/2025 1:00 PM EDT Office Visit [facility] [address] [facility] [place] [address] Lia Barnes, SHIRT TRIMMER [address] [facility] [address] [place] [address] 01/10/2025 9:00 AM EDT Clinical Support [facility] [address] [facility], 2nd [place] [address] 01/10/2025 9:40 AM EDT Office Visit [facility] [address] [facility], [address]nd [place] [address] Satnam Colvin MD [address] [facility] [address] [place] [address] 01/10/2025 12:00 PM EDT Appointment [facility] 1 [address] [place] [address] 01/11/2025 3:30 PM EDT Appointment [facility] 1 [address] [place] [address] 01/12/2025 3:30 PM EDT Appointment [facility] 2 [address] [place] [address] 01/19/2025 9:20 AM EDT Appointment [facility] [address], [address]st [place] [address] 01/19/2025 10:45 AM EDT Office Visit [place] [facility] [address], [address] [place] [address] Abhilash Bangura MD [address] [place] [address] 01/26/2025 4:30 PM EDT Office Visit [facility] [address] [facility] [place] [address] Lia Barnes, SHARDA [address] [facility] [address] [place] [address] 03/08/2025 1:00 PM EDT Office Visit [facility] [place] [address] [place] [address] Teresita Oconnell MD [address] [place] [address] documented as of this encounter [...] Bacteri al Infection Comment:Pseudomonas aeruginosa MDR, STOCK PARTS INSPECTOR 10/26/2024 10/31/2024 Assessment Noted Time PHQ-9 Depression Total Score: 0 09/01/19 25 3:26 PM EDT A fall risk assessment has been complete d for the patient 11/10/2024 2:43 PM EDT A Body Mass Index follow-up plan has been documented for the patient 11/08/2024 5:14 PM EDT documented as of this encounter Care Teams Marketing Technology Specialist Relationship Specialty Start Date End Date Laurie Gutierrez MD [address] [place] [address] PCP - General 12/09/23 Joshua Martínez MD [address] [place] [address] Consulting Physician Radiation Oncology 09/19/24 Paradise Pacheco, RN CH-VASCULAR & INTERVENTIONAL RADIOLOGY Registered Nurse 11/21/24 11/21/24 documented as of this encounter
--- OUTSIDE RECORDS SUMMARY | 2025-01-04 11:45 | XMS_ITS | Clinical Summary ---
Author Organization [facility] Address [address] 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 Active Calcium Carb-Cholecalcife rol 600-10 MG-MCG tablet Take 1 tablet by mouth daily. Active cetirizine (ZyrTEC) 10 MG tablet Take 1 tablet by mouth daily. Active Vitamin B-12 ER 1000 MCG tablet controlled-releas e Take 1 tablet by mouth Daily. Active FLUoxetine (PROzac) 40 MG capsule Take 1 capsule by mouth daily. Active pantoprazole (Protonix) 40 MG EC tablet Take 1 tablet by mouth daily. Do not crush, chew, or split. Active SITagliptin (Januvia) 50 MG tablet Take 1 tablet by mouth every morning. Active montelukast (Singulair) 10 MG tablet Take 1 tablet by mouth nightly. Active triamterene-hydro chlorothiazide (Maxzide-25) 37.5-25 MG tablet Take 1 tablet by mouth every morning. Active hydrOXYzine HCl (Atarax) 25 MG tablet Take 1 tablet by mouth 3 times a day as needed. Active metFORMIN (Glucophage) 1000 MG tablet Take 1 tablet by mouth 2 times a day with meals. Active Budeson-Glycopyrr ol-Formoterol (Breztri Aerosphere) 160-9-4.8 MCG/ACT aerosol Inhale 2 puffs 2 (two) times a day. Active ferrous sulfate 325 (65 Fe) MG tablet Take 1 tablet by mouth daily with breakfast. Active pen needle, diabetic 31G X 5 MM misc Use as directed with insulin pen. 100 each 11 025 Active glucose (Trueplus Glucose) 4 g chewable tablet Chew 4 tablets as needed for low blood sugar. 50 tablet 12 025 Active prochlorperazine (Compazine) 10 MG tabletIndications :Extensive stage primary small cell carcinoma of lung Take 1 tablet by mouth every 6 hours as needed for nausea or vomiting. 30 tablet 3 025 Active gabapentin (Neurontin) 600 MG tablet Take 1 tablet by mouth 4 times a day. 120 tablet 025 Active nystatin (Mycostatin) 002170 UNIT/GM powder Apply on bottom 2 times a day 30 g 025 Active acetaminophen (Tylenol) 325 MG tablet Take 2 tablets by mouth every 6 hours. Under [place] law, monthly prescriptions (30 days) can be refilled at 25 days and three-month prescriptions (90 days) at 80 days. Please contact the insurance company with questions if refills are denied. 100 tablet 025 Active rivaroxaban (Xarelto) 20 MG tablet Take 1 tablet by mouth 1 time each day with dinner. Take with food. Active insulin glargine (Lantus SoloStar) 100 UNIT/ML injection pen Inject 25 Units under the skin nightly. Active NovoLOG FLEXPEN 100 UNIT/ML injection pen Sliding scale three times a day with corrections and meals; BS 150-199=2units; BS 200-249=4units; BS 250-229=6units; 300-349=8 units; 350-399=10 units; anything greater than 399=12units max of 36units daily Active ondansetron ODT (Zofran-ODT) 4 MG disintegrating tablet Dissolve 1 tablet on the tongue every 6 hours as needed for nausea or vomiting. 20 tablet 025 Active cefepime (Maxipime) 1 g injectionIndicati ons:Incisional infection Infuse 6 gm continuously every 24 hours. Mix per institutional policy. 1 each 025 2024 Active metoprolol tartrate (Lopressor) 50 MG tablet Take 1 tablet by mouth 3 times a day. 90 tablet 1 025 2024 Active dilTIAZem CD (Cardizem CD) 120 MG 24 hr capsule Take 1 capsule by mouth nightly. 30 capsule 1 025 Active magnesium oxide (Mag-Ox) 400 MG tabletIndications :Extensive stage primary small cell carcinoma of lung Take 1 tablet by mouth 2 times a day. Hold for diarrhea 60 tablet 1 025 Active levETIRAcetam (Keppra) 750 MG tablet Take 1 tablet by mouth 2 times a day. 60 tablet 2 025 Active OLANZapine (ZyPREXA) 5 MG tablet Take 1 tablet by mouth nightly. 30 tablet 2 025 Active melatonin tablet Take 2 tablets by mouth nightly. 2024 Discontinued(E ntered in Error) rOPINIRole (Requip) 1 MG tablet Take 1 tablet by mouth 2 times a day. 2024 Discontinued(E ntered in Error) magnesium oxide (Mag-Ox) 400 MG tablet Take 1 tablet by mouth 2 times a day. Hold for diarrhea 60 tablet 1 025 2024 Discontinued(R eorder) calcium carbonate (Tums) 500 MG chewable tablet Chew 1 tablet 4 times a day as needed for indigestion or heartburn. 2024 Discontinued(E ntered in Error) magic mouthwash BLM (FIRST-Mouthwash) suspension Swish and spit 15 mL 4 times a day before meals and nightly for 3 days. 180 mL 025 2024 Discontinued magic butt balm (Cholestyramine) CMPD (Magic Butt) Apply 1 Application topically every 1 hour as needed for diaper rash. 80 g 025 2024 Discontinued(S top Taking at Discharge) estradiol (Estrace) 0.1 MG/GM vaginal cream Insert 2 g into the vagina daily. 2024 Discontinued(E ntered in Error) mupirocin (Bactroban) 2 % ointment Apply on head 2 times a day 22 g 025 2024 Discontinued(E ntered in Error) Probiotic, Lactobacillus, capsule Take 1 capsule by mouth daily. 30 capsule 1 025 2024 Discontinued(S top Taking at Discharge) ondansetron (Zofran) 8 MG tabletIndications :Extensive stage primary small cell carcinoma of lung Take 1 tablet by mouth 2 times a day. Take on Day 4 of cycle and then take PRN 30 tablet 5 025 2024 Discontinued(S top Taking at Discharge) lidocaine (Xylocaine) 5 % ointment Apply 2 times a day. 30 g 025 2024 Discontinued(E ntered in Error) metoprolol tartrate (Lopressor) 50 MG tablet Take 1 tablet by mouth 2 times a day. 60 tablet 2024 Discontinued(S top Taking at Discharge) Bactrim DS 800-160 MG tablet every 12 hours. 025 2024 Discontinued(S top Taking at Discharge) spironolactone (Aldactone) 25 MG tablet Take 1 tablet by mouth. 2024 Discontinued(S top Taking at Discharge) ofloxacin (Floxin) 0.3 % otic solution 1 (one) time each day at the same time. 2024 Discontinued(S top Taking at Discharge) furosemide (Lasix) 40 MG tablet TAKE 1 TABLET BY MOUTH ONCE DAILY FOR LEG SWELLLING 025 2024 Discontinued(S top Taking at Discharge) fluconazole (Diflucan) 200 MG tablet TAKE 1 TABLET 1 TIME EACH DAY FOR 7 DAYS 025 2024 Discontinued(S top Taking at Discharge) losartan (Cozaar) 25 MG tabletIndications :Hypertension Take 1 tablet by mouth daily. 2024 Discontinued(S top Taking at Discharge) carvedilol (Coreg) 25 MG tablet take 1 tablet 2 times each day 2024 Discontinued(S top Taking at Discharge) empagliflozin (Jardiance) 25 MG take 1 tablet 1 time each day 2024 Discontinued(S top Taking at Discharge) polyethylene glycol (Miralax) 17 g packet Take 17 g by mouth 2 times a day as needed (constipation). 60 packet 5 025 2024 Discontinued levETIRAcetam (Keppra) 500 MG tablet Take 2 tablets by mouth 2 times a day. 60 tablet 5 025 2024 Discontinued(S top Taking at Discharge) metoprolol tartrate (Lopressor) 25 MG tablet Take 1 tablet by mouth 3 times a day. 90 tablet 5 025 2024 Discontinued(S top Taking at Discharge) levETIRAcetam (Keppra) 1000 MG tablet Take 1 tablet by mouth 2 times a day. 60 tablet 5 025 2024 Discontinued(D ose adjustment) enoxaparin (Lovenox) 100 MG/ML solution prefilled syringe Inject 1 mL under the skin 2 times a day for 9 days. 17 each 025 2024 Active Problems Problem Noted Date Diagnosed Date Dyspnea 12/16/2024 Pulmonary embolism 12/16/2024 Incisional infection 12/15/2024 Heart failure 11/29/2024 Seizure 11/29/2024 JORGE (acute kidney injury) 11/29/2024 Fall 11/16/2024 Assessment & Plan (11/16/2024 7:16 AM EDT): - Admit to SGT 6 - Tertiary 11/16 Concussion 11/16/2024 Assessment & Plan (11/16/2024 7:16 AM EDT): - Neurochecks q4 Anxiety 10/25/2024 COPD (chronic obstructive pulmonary disease) 02/2025 Immunocompromised state 10/25/2024 Incontinence 10/25/2024 Irritable bowel syndrome 10/25/2024 Neuropathy 10/25/2024 Other specified disorders of bladder 10/25/2024 Tobacco dependence 10/25/2024 Vertebrogenic low back pain 10/25/2024 Pneumonia of right upper lobe due to infectious organism 10/25/2024 Subdural hemorrhage 10/12/2024 Assessment & Plan (11/16/2024 7:16 AM EDT): - L parafalcine subdural hemorrhage at the vertex measuring up to 7 mm - Jovon given - Stable after 6hrs - Hold AC/AP through 11/30 - Nsgy following Other malaise 09/17/2024 Other sequelae of other nont raumatic intracranial hemorrhage 09/17/2024 Unspecified abnormalities of gait and mobility 0 09/17/2024 Small cell lung cancer 09/09/2024 Metastasis to brain 09/09/2024 Assessment & [...] 08/12/2024 Stage 2 chronic kidney disease 08/12/2024 Pneumonia 08/05/2024 Dyspnea, unspecified 07/19/2024 Solitary pulmonary nodule [...] Encounters Date Type Department Care Team Description 01/04/2025 Social Work Psych Oncology [address] [place] [address] HalleyMariah Stephanie 01/03/2025 9:40 AM EDT Office Visit [facility] [address] [phone] Satnam Colvin MD 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); Seizures (CMS/HCC); Chemotherapy-induced neutropenia (CMS/HCC); Encounter for antineoplastic chemotherapy; Neoplastic (malignant) related fatigue; Anorexia 01/03/2025 Travel 01/02/[address] [facility] Laboratory Services [address] [address] Yosi Richmond MD Infection following a procedure, other surgical site, initial encounter; 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 acute cor pulmonale (CMS/HCC); Dyspnea, unspecified; Secondary malignant neoplasm of brain (CMS/HCC) 01/02/2025 Orders Only [facility] [address] [phone] Sheridan Vila, RN 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) 12/31/2024 12:55 PM EDT - 12/31/2024 4:03 PM EDT Emergency [facility] Emergency Department [address] [place] [address] Juwan Da Silva MD Houck, Jessica L, PIC line (peripherally inserted central catheter) flush (Primary Dx) Discharge Disposition: Home or Self Care 12/31/2024 Travel 12/26/[address] [facility] S Laboratory Services [address] [address] Yosi Richmond MD Infection following a procedure, other surgical site, initial encounter; 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 acute cor pulmonale (CMS/HCC); Dyspnea, unspecified; Secondary malignant neoplasm of brain (CMS/HCC) 12/23/2024 Clinical Support [facility] [address] [place] [address] Daniella Sargent, PharmD 12/18/2024 Travel 12/16/2024 1:31 PM EDT Anesthesia Event [facility] OPERATING ROOM [address] [place] [address] Lavon Garcia MD Rock, Holly R, PA 12/16/2024 12:05 PM EDT - 12/16/2024 2:00 PM EDT Surgery [facility] [address] [place] [address] Abhilash Bangura MD IRRIGATION AND DEBRIDEMENT, WOUND [40262 (CPT )] 12/16/2024 Travel 12/15/2024 8:36 PM EDT - 12/22/2024 3:43 PM EDT Hospital Encounter [facility] Inpatient [address] Deandre Cabrera MD Raza, Syed A, MD Mills, Sarah C, Yosi Beasley MD Incisional infection (Primary Dx); Multiple subsegmental pulmonary emboli without acute cor pulmonale (CMS/HCC); Atrial fibrillation with RVR (CMS/HCC); History of lung cancer Discharge Disposition: Home or Self Care 12/15/2024 Travel 12/15/2024 Telephone OR Clinic [facility] [address], [address] [place] [address] Abhilash Bangura MD 12/12/2024 Patient Outreach [facility] [address] [place] [address] Sabine Morales LPN TCM Call 12/08/2024 Travel 12/06/2024 Travel 12/03/2024 Travel 12/02/2024 Travel 12/01/2024 Travel 11/30/2024 Travel 11/29/2024 3:11 PM EDT - 12/10/2024 6:03 PM EDT Hospital Encounter [facility] Inpatient [address] [place] [id number] Nisha Cordova MD Davidson, Blake M, MD Arora, Ankit, MD Engblade, Joy K, MD Sayers, Bernice E, MD Seizure (CMS/HCC) (Primary Dx); Acute heart failure, unspecified heart failure type (CMS/HCC) Discharge Disposition: [place] [facility] [place]/29/[place]24 12:30 PM EDT - 11/29/2024 3:10 PM EDT Hospital Encounter [facility] 1 [address] [place] [address] 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) Discharge Disposition: Home or Self Care 11/29/2024 11:00 AM EDT Office Visit [facility] [address] [facility], [address]nd [place] [address] Satnam Colvin MD Seizures (CMS/HCC) (Primary Dx); Extensive stage primary small cell carcinoma of lung; Encounter for antineoplastic chemotherapy; Chemotherapy-induced neutropenia (CMS/HCC); Brain mass; Neoplastic (malignant) related fatigue; SDH (subdural hematoma) (CMS/HCC); Right leg weakness 11/29/2024 10:30 AM EDT Clinical Support [facility] [address] [facility], [address]nd [place] [address] Extensive stage primary small cell carcinoma of lung 11/29/2024 Travel 2024 Telephone [facility] [address] [place] [address] Teresita Oconnell MD HCN Clinical Concern/Question 11/25/2024 Patient Outreach [facility] [address] [place] [phone] Sabine Morales LPN TCM Call 11/24/2024 Patient Outreach [facility] [address] [place] [address] [address], [address] [place] [address] Sabine Morales LPN TCM Call 11/23/2024 Patient Outreach [facility] [address] [place], [place] [address]an[address], [address] [place] [address] Sabine Morales LPN TCM Call 11/22/2024 Travel 11/21/2024 Patient Outreach [facility] [address] [facility], [address] [place] [phone] Paradise Pacheco RN Link 11/19/2024 12:35 AM EDT - 11/22/2024 4:58 PM EDT Hospital Encounter [facility] Inpatient [address] [place] [phone] Jose David Ponce MD Wolak, Megan M, MD Atrial fibrillation with rapid ventricular response (CMS/HCC) (Primary Dx); Small cell carcinoma of lung, unspecified laterality, unspecified part of lung; Type 2 diabetes mellitus with diabetic neuropathy, unspecified whether fci insulin use (CMS/HCC) Discharge Disposition: Home-Health Care c 11/19/2024 Travel 11/18/2024 Orders Only External Location [address] [place] [address] Nuria Lunsford PA 11/18/2024 Orders Only External Location [address] [place] [address] Provider, External 11/16/2024 Travel 11/15/2024 4:42 PM EDT - 11/16/2024 3:39 PM EDT Hospital Encounter [facility] Emergency Department [address] [place] [phone] Ashu Ortiz MD Nickols, Alexis K, MD Wheelock, Brittany N, MD SAH (subarachnoid hemorrhage) (CMS/HCC) (Primary Dx); SDH (subdural hematoma) (CMS/HCC); Nondisplaced fracture of distal phalanx of left thumb, initial encounter for closed fracture; Acute cystitis without hematuria Discharge Disposition: Home or Self Care 11/15/2024 Orders Only External Location [address] [place] [address] Regina Katz, REGIONAL VICE PRESIDENT [employer] 11/15/2024 Orders Only External Location [address] [place] [address] Regina Katz, REGIONAL VICE PRESIDENT [employer] 11/15/2024 Orders Only External Location [address] [place] [address] Regina Katz, REGIONAL VICE PRESIDENT [employer] 11/15/2024 Orders Only External Location [address] [place] [address] Regina Katz, REGIONAL VICE PRESIDENT [employer] 11/15/2024 Travel 11/15/2024 Orders Only External Location [address] [place] [address] Provider, External 11/15/2024 Orders Only External Location [address] [place] [address] Provider, External 11/15/2024 Orders Only External Location [address] [place] [address] Provider, External 11/15/2024 Orders Only External Location [address] [place] [address] Regina Katz, [employer]ION[employer] VICE PRESIDENT [employer] 11/15/2024 Orders Only External Location [address] [place] [address] Provider, External 11/14/2024 8:45 AM EDT - 11/14/2024 11:59 PM EDT Hospital Encounter [facility] Radiation [address] [facility]. [address] [place] [address] Discharge Disposition: Still a Patient 11/14/2024 Travel 11/10/2024 2:39 PM EDT - 11/10/2024 11:59 PM EDT Hospital Encounter [facility] 1 [address] [place] [address] 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) Discharge Disposition: Home or Self Care 11/10/2024 Travel 11/09/2024 2:49 PM EDT - 11/09/2024 11:59 PM EDT Hospital Encounter [facility] 2 [address] [place] [address] 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) Discharge Disposition: Home or Self Care 11/09/2024 Travel 11/08/2024 2:00 PM EDT - 11/08/2024 11:59 PM EDT Hospital Encounter [facility] 1 [address] [place] [address] 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) Discharge Disposition: Home or Self Care 11/08/2024 11:20 AM EDT Office Visit [facility] [address] [facility], [address]nd [place] [address] Satnam Colvin MD 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); Encounter for antineoplastic chemotherapy; Acute hypoxic respiratory failure; Chemotherapy-induced neutropenia (CMS/HCC); Neoplastic (malignant) related fatigue 11/08/2024 11:00 AM EDT Clinical Support [facility] [address] [facility], [address]nd [place] [address] Extensive stage primary small cell carcinoma of lung 11/08/2024 Social Work Psych Oncology [address] [place] [address] Mariah Rowley 11/08/2024 Travel 11/07/2024 12:14 PM EDT - 11/07/2024 11:59 PM EDT Hospital Encounter [facility] [address] [address] Discharge Disposition: Still a Patient 11/07/2024 8:45 AM EDT - 11/07/2024 12:13 PM EDT Hospital Encounter [facility] [address] [address] Discharge Disposition: Still a Patient 11/07/2024 Orders Only [facility] Radiation [address] [address] Radiation Oncology, PhysicianMD 11/07/2024 Orders Only [facility] Radiation [address] [place] [address] Radiation Oncology, PhysicianMD 11/07/2024 Travel 11/04/2024 10:49 AM EDT - 11/04/2024 11:59 PM EDT Hospital Encounter [facility] [address] [address] Discharge Disposition: Still a Patient 11/04/2024 Orders Only [facility] Rad[facility] [address] [address] Radiation Oncology, PhysicianMD 11/04/2024 Social Work Psych Oncology [address] [place] [address] Mariah Rowley 11/02/2024 10:54 AM EDT - 11/02/2024 11:59 PM EDT Hospital Encounter [facility] [address] [address] Discharge Disposition: Still a Patient 11/02/2024 Social Work Psych Oncology [address] [place] [address] BennyMariah pate 11/02/2024 Orders Only [facility] [address] [address] Radiation Oncology, Physician, 11/01/2024 10:58 AM EDT - 11/01/2024 11:59 PM EDT Hospital Encounter [facility] [address] [address] Garrison Marie MD 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CMS/HCC) (Primary Dx) Discharge Disposition: Still a Patient 11/01/2024 10:16 AM EDT - 11/01/2024 10:57 AM EDT Hospital Encounter [facility] [address] [phone] Discharge Disposition: Still a Patient 11/01/2024 Patient Outreach [facility] [address] [place] [address], [address] [place] [address] Jasmina Smith LPN TCM Call 11/01/2024 Travel 11/01/2024 Orders Only [facility] Radiation [address] [phone] Radiation Oncology, PhysicianMD 10/31/2024 8:45 AM EDT - 10/31/2024 11:59 PM EDT Hospital Encounter [facility] [address] [phone] Discharge Disposition: Still a Patient 10/31/2024 8:41 AM EDT - 10/31/2024 8:44 AM EDT Hospital Encounter [facility] [address] [address] Discharge Disposition: Still a Patient 10/31/2024 Travel 10/31/2024 Orders Only [facility] Radiation [address] [address] Radiation Oncology, Physician, 10/28/2024 8:46 AM EDT - 10/28/2024 11:59 PM EDT Hospital Encounter [facility] [address] [address] Discharge Disposition: Still a Patient 10/28/2024 Social Work Psych Oncology [address] [place] [address] Mariah Rowley 10/28/2024 Orders Only [facility] Radiation [address] [address] Radiation Oncology, Physician, 10/27/2024 11:45 AM EDT - 10/27/2024 11:59 PM EDT Hospital Encounter [facility] [address] [address] Discharge Disposition: Still a Patient 10/27/2024 Orders Only [facility] Radiation [address] [place] [address] Radiation Oncology, Physician, 10/26/2024 11:30 AM EDT - 10/26/2024 11:59 PM EDT Hospital Encounter [facility] [address] [address] Discharge Disposition: Still a Patient 10/26/2024 Orders Only [facility] Radiation [address] [address] Radiation Oncology, PhysicianMD 10/25/2024 12:45 PM EDT - 10/25/2024 11:59 PM EDT Hospital Encounter [facility] [address] [address] Discharge Disposition: Still a Patient 10/25/2024 10:03 AM EDT - 10/31/2024 5:33 PM EDT Hospital Encounter [facility] Inpatient [address] [place] [address] [place] Bobby MD Lile, Anthony G, MD Pneumonia of right upper lobe due to infectious organism (Primary Dx); Hypoxia; Other fatigue Discharge Disposition: Home or Self Care 10/25/2024 8:40 AM EDT Office Visit [facility] [address] [place] [address] Vonnie Barksdale PA Atrial flutter with rapid ventricular response (CMS/HCC) (Primary Dx); High risk medication use; Anesthesia of skin 10/25/2024 Orders Only [facility] [address] [phone] Radiation Oncology, Physician, 10/25/2024 Travel 10/24/2024 11:48 AM EDT - 10/24/2024 11:59 PM EDT Hospital Encounter [facility] [address] [phone] Discharge Disposition: Still a Patient 10/24/2024 11:47 AM EDT Hospital Encounter [facility] [address] [phone] Joshua Martínez MD Discharge Disposition: Still a Patient 10/24/2024 8:59 AM EDT - 10/24/2024 11:46 AM EDT Hospital Encounter [facility] [address] [phone] Discharge Disposition: Still a Patient 10/24/2024 Orders Only [facility] Rad[facility] [address] [phone] Radiation Oncology, Physician, 10/24/2024 Travel 10/20/2024 9:22 AM EDT - 10/20/2024 11:59 PM EDT Hospital Encounter [facility] [address] [phone] Discharge Disposition: Still a Patient 10/20/2024 12:10 AM EDT - 10/20/2024 9:21 AM EDT Hospital Encounter [facility] [address] [phone] Discharge Disposition: Still a Patient 10/19/2024 Patient Outreach [facility] [address] [place] [address], [address] [place] [phone] Jasmina Smith LPN TCM Call 10/19/2024 Telephone [facility] [address] [place] [phone] Teresita Oconnell MD 10/18/2024 Travel 10/17/2024 Orders Only [facility] 800 [facility] [address] [place] [address] Rupa De Santiago, PharmD 10/14/2024 Travel 10/13/2024 Travel 10/12/2024 4:08 PM EDT - 10/18/2024 12:48 PM EDT Hospital Encounter [facility] Inpatient [address] [place] [address] Sanya Ledezma MD Garrison, Caitlin M, DO Tanami, Sadia A, MD Tsering Dolkar, Unknown, MD Febrile neutropenia (CMS/HCC) (Primary Dx); Hypomagnesemia Discharge Disposition: Home or Self Care 10/12/2024 Travel 10/12/2024 Telephone OR Clinic [facility] [address], [address] [place] [address] Abhilash Bangura MD HCN - Patient Message (Call back ) 10/06/2024 2:22 PM EDT - 10/06/2024 11:59 PM EDT Hospital Encounter [facility] Infusion [address] [place] [phone] 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) Discharge Disposition: Home or Self Care 10/06/2024 Travel 10/05/2024 2:13 PM EDT - 10/05/2024 11:59 PM EDT Hospital Encounter [facility]fusion [address] [place] [phone] 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) Discharge Disposition: Home or Self Care 10/05/2024 Travel 10/04/2024 11:02 AM EDT - 10/04/2024 11:59 PM EDT Hospital Encounter [facility]fusion [address] [place] [phone] 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) Discharge Disposition: Home or Self Care 10/04/2024 10:40 AM EDT Office Visit [facility] [address] [facility] [address] [place] [phone] Satnam Colvin MD 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); Brain mass; Type 2 diabetes mellitus without complication, without long-term current use of insulin; Primary hypertension; Encounter for antineoplastic chemotherapy 10/04/2024 10:00 AM EDT Clinical Support [facility] [address] [facility] [place] [address] Extensive stage primary small cell carcinoma of lung 10/04/2024 Social Work Psych Oncology [address] [phone] Mariah Rowley 10/04/2024 Travel from Last 3 Months Immunizations Immunization [...] the past 12 months has th e Now [employer], gas, oil, or water company threatened to shut off services in your home? No 12/16/2024 Comments No Sex and Gender Information Value Date Recorded Sex Assigned at Female 12/02/2024 4:52 PM EDT Legal Sex Female 8:32 PM EDT Gender Identity Female 12/02/2024 4:52 PM EDT Sexual Orientation Straight 12/02/2024 4: 52 PM EDT Last Filed Vital Signs Vital Sign Reading [...] Mass Index 38.77 12/17/2024 12:00 AM EDT Plan of Treatment Upcoming Encounters Date Type Department Care Team ([facility] st Contact Info) Description 01/05/2025 1:00 PM EDT Office Visit [facility] [address] [place] [phone] Lia Barnes, REGIONAL VICE PRESIDENT [employer] [address] [facility] [address] [place] [phone] 01/10/2025 9:00 AM EDT Clinical Support [facility] [address] [facility], [address]nd [place] [address] 01/10/2025 9:40 AM EDT Office Visit [facility] [address] [facility], [address]nd [place] [address] Satnam Colvin MD [address] [facility] N[address] Degroot [facility] [address] [place] [address] 01/10/2025 12:00 PM EDT Appointment [facility] [address] [place] [phone] 01/11/2025 3:30 PM EDT Appointment [facility] 1 [address] [place] [address] 01/12/2025 3:30 PM EDT Appointment [facility] [address] [place] [phone] 01/19/2025 9:20 AM EDT Appointment [facility] [address] [place] [address] 01/19/2025 10:45 AM EDT Office Visit [facility] [address], [address] [place] [address] Abhilash Bangura MD [address] [place] [address] 01/26/2025 4:30 PM EDT Office Visit [facility] [address] [place] [address] Lia Barnes, REGIONAL VICE PRESIDENT [employer] [address] [place] [address] 03/08/2025 1:00 PM EDT Office Visit [facility] [place] [facility] [address] [place] [address] Teresita Oconnell MD [address] [place] [address] Health Maintenance Due Date Last [...] - Risk 60-74 years 1-dose series) 2020 [id number] Vaccine (9 - Mixed Product risk season) 2024 03/15/2024, 06/11/2023, 07/01/2022, Additional history exists [facility]-Influenza Vaccine (#1) 01/16/202501/31, 02/23/2023, 03/17/2022, Additional history exists [facility]-Diabetes: Hemoglobin A1C 03/02/2025 09/02/2024, 11/19/2023 [facility]- SDOH Screenings 06/18/2025 [facility]-Adult SDOH Screenings 06/18/2025 12/16/2024 [facility]-Depression Screening 08/31/2025 08/31/2024, 08/16 [facility]-Breast Cancer Screening 01/14/2026 01/15/2024, 0 01/15/2024 [facility]-DTaP,Tdap,and Td Vaccines (2 - Td or Tdap) 09/04/2027 09/03/2017 [facility]-Hepatitis A Vaccines Aged Out 09/03/2018, 01/17 No longer eligible based on patient's age to complete this topic [facility]-HIV Screening Completed 08/31/2024 [facility]-Hepatitis C Screening Completed 08/31/2024, 02/2014 [facility]-Lung Cancer Screening Discontinued 2024, 10/25/2024, 10/13/2024, Additional history exists [facility]-Obesity Intervention Completed 025, 12/15/2024, 11/29/2024, Additional history exists HPV Vaccines Aged Out [...] this topic Medical Devices Implanted Type Area Compliance Aide Device Identifier Shelf Expiration Date Model / Serial / Lot Graft Dura Repair 2x2 Synthe[employer] - [id number] Implanted:Qty: 1 on 09/05/2024 by Abhilash Bangura MD at [facility] [employer] [place]-[id number] 03/17/2026 [id number] / / [id number] Screw Ti Matrixneuro Selfdrill 4mm - S. - [id number] Implanted:Qty: 12 on 09/05/2024 by Abhilash Bangura MD at [facility] [employer] [place]-[id number] 09/05/2025 [id number] / . / Plate, 2 Hole Low Profile - S. - [id number] Implanted:Qty: 2 on 09/05/2024 by Abhilash Bangura MD at [facility] [employer] [facility]-[id number] 09/05/2025 [id number] / . / Cover, Neuro Vernon Lp 17mm - S. - [id number] Implanted:Qty: 2 on 09/05/2024 by Abhilash Bangura MD at [facility] [employer] [facility]-[id number] 09/05/2025 [id number] / . / Procedures Procedure Name Priority Date/Time Associated Diagnosis Comments CBC WITH AUTO DIFFERENTIAL Routine 01/02/2025 10:40 [...] unspecified Secondary malignant neoplasm of brain (CMS/HCC) CREATININE, PLASMA Routine 01/02/2025 10:40 AM EDT Infection [...] unspecified Secondary malignant neoplasm of brain (CMS/HCC) XR CHEST 1 VIEW STAT 12/31/2024 1:49 PM EDT CBC WITH AUTO DIFFERENTIAL Routine 12/26/2024 10:50 [...] unspecified Secondary malignant neoplasm of brain (CMS/HCC) CREATININE, PLASMA Routine 12/26/2024 10:50 AM EDT Infection [...] unspecified Secondary malignant neoplasm of brain (CMS/HCC) POCT GLUCOSE METER UNSOLICITED RESULTS Routine 12/22/2024 12:43 PM EDT POCT GLUCOSE METER UNSOLICITED RESULTS Routine 12/22/2024 8:11 AM EDT MAGNESIUM, PLASMA Routine 12/22/2024 12:26 AM EDT CBC W/O DIFFERENTIAL Routine 12/22/2024 12:26 AM EDT BASIC METABOLIC PANEL, PLASMA Routine 12/22/2024 12:26 AM EDT POCT GLUCOSE METER UNSOLICITED RESULTS Routine 12/21/2024 9:17 PM EDT POCT GLUCOSE METER UNSOLICITED RESULTS Routine 12/21/2024 5:44 PM EDT POCT GLUCOSE METER UNSOLICITED RESULTS Routine 12/21/2024 12:11 PM EDT POCT GLUCOSE METER UNSOLICITED RESULTS Routine 12/21/2024 8:04 AM EDT ANTI XA LEVEL UNFRACTIONATED HEPARIN STAT 12/21/2024 7:30 AM EDT CBC W/O DIFFERENTIAL STAT 12/21/2024 1:04 AM EDT ANTI XA LEVEL UNFRACTIONATED HEPARIN STAT 12/21/2024 1:04 AM EDT POCT GLUCOSE METER UNSOLICITED RESULTS Routine 12/20/2024 7:55 PM EDT POCT GLUCOSE METER UNSOLICITED RESULTS Routine 12/20/2024 5:12 PM EDT POCT GLUCOSE METER UNSOLICITED RESULTS Routine 12/20/2024 12:47 PM EDT POCT GLUCOSE METER UNSOLICITED RESULTS Routine 12/20/2024 7:46 AM EDT ANTI XA LEVEL UNFRACTIONATED HEPARIN STAT 12/20/2024 2:20 AM EDT PHOSPHORUS, PLASMA Routine 12/20/2024 2: 20 AM EDT MAGNESIUM, PLASMA Routine 12/20/2024 2:2 0 AM EDT COMPREHENSIVE METABOLIC PANEL, PLASMA Routine 12/20/2024 2:20 AM EDT CBC W/O DIFFERENTIAL STAT 12/20/2024 2:20 AM EDT ANTI XA LEVEL [...] UNSOLICITED RESULTS Routine 12/19/2024 8:09 AM EDT MAGNESIUM, PLASMA Routine 12/19/2024 6:1 9 AM EDT ANTI XA LEVEL UNFRACTIONATED HEPARIN STAT 12/19/2024 6:19 AM EDT COMPREHENSIVE METABOLIC PANEL, PLASMA Routine 12/19/2024 12:25 AM EDT CBC W/O DIFFERENTIAL STAT 12/19/2024 12:25 AM EDT N-TERMINAL PROBNP, PLASMA Routine 12/19/2024 12:25 AM EDT TSH REFLEX FT4 Routine 12/19/2024 12:25 AM EDT PHOSPHORUS, PLASMA Routine 12/19/2024 12:25 AM EDT MAGNESIUM, PLASMA Routine 12/19/2024 12:25 AM EDT INSERT PICC LINE Routine 12/18/2024 11:40 PM EDT POCT GLUCOSE METER UNSOLICITED RESULTS [...] UNSOLICITED RESULTS Routine 12/18/2024 7:55 AM EDT MAGNESIUM, PLASMA Routine 12/18/2024 5:1 6 AM EDT COMPREHENSIVE METABOLIC PANEL, PLASMA Routine 12/18/2024 5:16 AM EDT CBC W/O DIFFERENTIAL STAT 12/18/2024 5:16 AM EDT HEMOGLOBIN AND HEMATOCRIT, BLOOD Routine 12/17/2024 9:59 PM EDT INSERT PERIPHERAL IV STAT 12/17/2024 9:45 PM EDT POCT GLUCOSE METER UNSOLICITED RESULTS Routine 12/17/2024 9:09 PM EDT PHOSPHORUS, PLASMA Routine 12/17/2024 3: 22 PM EDT COMPREHENSIVE METABOLIC PANEL, PLASMA Routine 12/17/2024 3:22 PM EDT TYPE AND SCREEN Routine 12/17/2024 3:22 PM EDT CBC W/O DIFFERENTIAL STAT 12/17/2024 3:22 PM EDT MAGNESIUM, PLASMA Routine 12/17/2024 3:2 2 PM EDT WILBUR AURIS SURVEILLANCE BY PCR [...] EDT Incisional infection FUNGAL CULTURE, ROUTINE Routine 12/16/2024 1:58 PM EDT Incisional infection ANAEROBIC CULTURE Routine 12/16/2024 1:5 8 PM EDT Incisional infection PB ANESTHESIA PLACEHOLDER Routine 12/16/2024 1:40 PM EDT NE AN ELECTIVE ENDOTRACHEAL AIRWAY Routine 12/16/2024 1:40 PM EDT NE DEBRIDEMENT, SKIN, SUB-Q TISSUE,MUSCLE,=<20 SQ CM 12/16/2024 1:15 PM EDT Incisional infection POCT GLUCOSE METER UNSOLICITED RESULTS Routine 12/16/2024 12:53 PM EDT RESPIRATORY CULTURE AND GRAM STAIN Routine 12/16/2024 8:47 AM EDT HISTOPLASMA GALACTOMANNAN EIA, URINE (SO) Routine 12/16/2024 8:39 AM EDT STREPTOCOCCUS PNEUMONIAE AND LEGIONELLA URINARY ANTIGEN Routine 12/16/2024 8:39 AM EDT POCT GLUCOSE METER UNSOLICITED RESULTS Routine 12/16/2024 8:28 AM EDT APTT STAT 12/16/2024 8:24 AM EDT PROTHROMBIN TIME(PT) / INR STAT 12/16/2024 8:24 AM EDT METHICILLIN RESISTANT STAPHYLOCOCCUS AUREUS (MRSA) BY PCR Routine 12/16/2024 7:50 AM EDT MULTI DRUG RESISTANCE TEST Routine 12/16/2024 7:50 AM EDT PROCALCITONIN, PLASMA Add-On 12/16/2024 5:52 AM EDT C-REACTIVE PROTEIN, PLASMA STAT 12/16/2024 5:52 AM EDT SEDIMENTATION RATE, AUTOMATED STAT 12/16/2024 5:52 AM EDT CBC W/O DIFFERENTIAL STAT 12/16/2024 5:52 AM EDT BASIC METABOLIC PANEL, PLASMA STAT 12/16/2024 5:52 AM EDT MAGNESIUM, PLASMA STAT 12/16/2024 5:5 2 AM EDT PHOSPHORUS, PLASMA STAT 12/16/2024 5: 52 AM EDT BLOOD CULTURE (AEROBIC/ANAEROBIC SET) Routine 12/16/2024 5:52 AM EDT ECG ADULT STAT [...] RESPIRATORY PANEL STAT 12/15/2024 11:19 PM EDT CBC W/O DIFFERENTIAL Add-On 12/15/2024 11:18 PM EDT SEDIMENTATION RATE, AUTOMATED STAT 12/15/2024 11:18 PM EDT C-REACTIVE PROTEIN, PLASMA STAT 12/15/2024 11:18 PM EDT BLOOD GAS PANEL, VENOUS STAT 12/15/2024 11:18 PM EDT N-TERMINAL PROBNP, PLASMA STAT 12/15/2024 11:18 PM EDT TROPONIN T, HIGH SENSITIVITY, 0 HOUR, PLASMA, REFLEX TO 2 HOUR STAT 12/15/2024 11:18 PM EDT LIPASE, PLASMA STAT 12/15/2024 11:18 PM EDT COMPREHENSIVE METABOLIC PANEL, PLASMA STAT 12/15/2024 11:18 PM EDT BLOOD CULTURE (AEROBIC/ANAEROBIC SET) STAT 12/15/2024 11:18 PM EDT XR CHEST 1 VIEW STAT 12/15/2024 10:01 PM EDT ECG ADULT STAT 12/15/2024 8:23 PM EDT POCT GLUCOSE METER UNSOLICITED RESULTS [...] UNSOLICITED RESULTS Routine 12/09/2024 8:57 AM EDT BASIC METABOLIC PANEL, PLASMA STAT Add-on 12/09/2024 3:52 AM EDT VANCOMYCIN, RANDOM, PLASMA Routine 12/09/2024 3:52 AM EDT POCT GLUCOSE METER [...] PLASMA Routine 12/07/2024 3:5 1 AM EDT BASIC METABOLIC PANEL, PLASMA Routine 12/07/2024 3:51 AM EDT VANCOMYCIN, RANDOM, PLASMA Routine 12/07/2024 3:51 AM EDT POCT GLUCOSE METER UNSOLICITED RESULTS Routine 12/06/2024 7:54 PM EDT AFB CULTURE, NON RESPIRATORY SOURCE AND ACID FAST STAIN Routine 12/06/2024 6:48 PM EDT CEREBROSPINAL FLUID (CSF) CULTURE AND GRAM STAIN Routine 12/06/2024 6:48 PM EDT HERPES SIMPLEX VIRUS (HSV) BY PCR Routine 12/06/2024 6:48 PM EDT FREEZE AND HOLD Routine 12/06/2024 6:48 PM EDT FUNGAL CULTURE, CEREBROSPINAL FLUID (CSF) AND EMILY INK Routine 12/06/2024 6:48 PM EDT CRYPTOCOCCAL ANTIGEN, CSF Routine 12/06/2024 6:48 PM EDT POCT GLUCOSE METER UNSOLICITED RESULTS Routine 12/06/2024 6:00 PM EDT IR LUMBAR PUNCTURE Routine 12/06/2024 4: 24 PM EDT CSF, PATHOLOGIST INTERPRETATION Routine 12/06/2024 4:21 PM EDT NON-GYNECOLOGIC CYTOLOGY Routine 12/06/2024 4:21 PM EDT ENTEROVIRUS QUANTITATIVE PCR, CSF (SO) Routine 12/06/2024 4:21 PM EDT VARICELLA ZOSTER DNA, QUANTITATIVE CSF Routine 12/06/2024 4:21 PM EDT WEST NILE VIRUS ANTIBODIES, IGG AND IGM BY SONI, CSF (SO) Routine 12/06/2024 4:21 PM EDT CMV DNA, QUANTITATIVE, PCR CSF Routine 12/06/2024 4:21 PM EDT LACTATE DEHYDROGENASE TOTAL, BODY FLUID (SO) Routine 12/06/2024 4:21 PM EDT TOTAL PROTEIN, CSF Routine 12/06/2024 4: 21 PM EDT GLUCOSE, CSF Routine 12/06/2024 4:21 PM EDT CSF CELL COUNT W/ MANUAL DIFFERENTIAL Routine 12/06/2024 4:21 PM EDT CSF NOTIFICATION ORDER - PERFORMABLE Routine 12/06/2024 4:21 PM EDT CSF PANEL Routine 12/06/2024 4:21 PM EDT POCT GLUCOSE METER UNSOLICITED RESULTS Routine 12/06/2024 12:23 PM EDT POCT GLUCOSE METER UNSOLICITED RESULTS Routine 12/06/2024 8:33 AM EDT MAGNESIUM, PLASMA Routine 12/06/2024 3:3 4 AM EDT BASIC METABOLIC PANEL, PLASMA Routine 12/06/2024 3:34 AM EDT CBC W/O DIFFERENTIAL Routine 12/06/2024 3:34 AM EDT VANCOMYCIN, RANDOM, PLASMA Routine 12/06/2024 3:34 AM EDT POCT GLUCOSE METER UNSOLICITED RESULTS Routine 12/05/2024 9:34 PM EDT POCT GLUCOSE METER UNSOLICITED RESULTS Routine 12/05/2024 5:21 PM EDT VANCOMYCIN, PEAK, PLASMA Routine 12/05/2024 12:14 PM EDT POCT GLUCOSE METER UNSOLICITED RESULTS Routine 12/05/2024 11:41 AM EDT POCT GLUCOSE METER UNSOLICITED RESULTS Routine 12/05/2024 8:07 AM EDT MAGNESIUM, PLASMA Routine 12/05/2024 2:5 8 AM EDT BASIC METABOLIC PANEL, PLASMA Routine 12/05/2024 2:58 AM EDT CBC W/O DIFFERENTIAL Routine 12/05/2024 2:58 AM EDT ECG ADULT STAT 12/04/2024 11:16 PM EDT POCT GLUCOSE METER UNSOLICITED RESULTS Routine 12/04/2024 7:57 PM EDT VANCOMYCIN, RANDOM, PLASMA Routine 12/04/2024 6:10 PM EDT POCT GLUCOSE METER UNSOLICITED RESULTS Routine 12/04/2024 5:25 PM EDT POCT GLUCOSE METER UNSOLICITED RESULTS Routine 12/04/2024 12:32 PM EDT POCT GLUCOSE METER UNSOLICITED RESULTS Routine 12/04/2024 8:39 AM EDT C-REACTIVE PROTEIN, PLASMA Routine 12/04/2024 1:30 AM EDT BASIC METABOLIC PANEL, PLASMA Routine 12/04/2024 1:30 AM EDT CBC W/O DIFFERENTIAL Routine 12/04/2024 1:30 AM EDT POCT GLUCOSE METER UNSOLICITED RESULTS Routine 12/03/2024 8:11 PM EDT POCT GLUCOSE METER UNSOLICITED RESULTS Routine 12/03/2024 5:31 PM EDT POCT GLUCOSE METER UNSOLICITED RESULTS Routine 12/03/2024 12:26 PM EDT POCT GLUCOSE METER UNSOLICITED RESULTS Routine 12/03/2024 8:28 AM EDT XR CHEST 1 VIEW Routine 12/03/2024 6:05 AM EDT MAGNESIUM, PLASMA Add-On 12/03/2024 12:30 AM EDT LACTATE, VENOUS Routine 12/03/2024 12:30 AM EDT PROCALCITONIN, PLASMA Routine 12/03/2024 12:30 AM EDT BASIC METABOLIC PANEL, PLASMA Routine 12/03/2024 12:30 AM EDT CBC W/O DIFFERENTIAL Routine 12/03/2024 12:30 AM EDT BLOOD CULTURE (AEROBIC/ANAEROBIC SET) Routine 12/03/2024 12:30 AM EDT BLOOD CULTURE (AEROBIC/ANAEROBIC SET) Routine 12/03/2024 12:30 AM EDT METHICILLIN RESISTANT [...] UNSOLICITED RESULTS Routine 12/01/2024 1:08 PM EDT NE EEG,W/AWAKE & DROWSY RECORD Routine 12/01/2024 12:59 PM EDT POCT GLUCOSE METER UNSOLICITED RESULTS Routine 12/01/2024 11:17 AM EDT POCT GLUCOSE METER UNSOLICITED RESULTS Routine 12/01/2024 7:39 AM EDT CYSTATIN C Add-On 12/01/2024 5:02 AM EDT BASIC METABOLIC PANEL, PLASMA Routine 12/01/2024 5:02 AM EDT CBC W/O DIFFERENTIAL Routine 12/01/2024 5:02 AM EDT POCT GLUCOSE METER UNSOLICITED RESULTS Routine 11/30/2024 9:11 PM EDT POCT GLUCOSE METER UNSOLICITED RESULTS Routine 11/30/2024 5:25 PM EDT US RENAL COMPLETE Routine 11/30/2024 12:47 PM EDT CBC W/O DIFFERENTIAL Routine 11/30/2024 [...] (AEROBIC/ANAEROBIC SET) Routine 11/30/2024 2:32 AM EDT CREATINE KINASE, TOTAL, PLASMA Add-On 11/30/2024 2:09 AM EDT TROPONIN T, HIGH SENSITIVITY, 0 HOUR, PLASMA, REFLEX TO 2 HOUR STAT 11/30/2024 2:09 AM EDT D DIMER, QUANTITATIVE Routine 11/30/2024 2:09 AM EDT BLOOD GAS PANEL, VENOUS Routine 11/30/2024 2:09 AM EDT PROCALCITONIN, PLASMA Routine 11/30/2024 2:09 AM EDT C-REACTIVE PROTEIN, PLASMA Routine 11/30/2024 2:09 AM EDT TYPE AND SCREEN Routine 11/30/2024 2:09 AM EDT APTT Routine 11/30/2024 2:09 AM EDT PROTHROMBIN TIME(PT) / INR Routine 11/30/2024 2:09 AM EDT PHOSPHORUS, PLASMA Routine 11/30/2024 2: 09 AM EDT MAGNESIUM, PLASMA Routine 11/30/2024 2:0 9 AM EDT COMPREHENSIVE METABOLIC PANEL, PLASMA Routine 11/30/2024 2:09 AM EDT CBC WITH AUTO DIFFERENTIAL Routine 11/30/2024 2:09 AM EDT STREPTOCOCCUS PNEUMONIAE AND LEGIONELLA URINARY ANTIGEN Routine 11/30/2024 2:09 AM EDT NASOPHARYNGEAL RESPIRATORY PANEL Routine 11/30/2024 2:09 AM EDT BLOOD CULTURE (AEROBIC/ANAEROBIC SET) Routine 11/30/2024 2:09 AM EDT SARS COV-2/COVID-19 BY PCR Routine 11/30/2024 2:09 AM EDT MULTI DRUG RESISTANCE TEST Routine 11/30/2024 2:09 AM EDT ECG ADULT STAT 11/30/2024 1:36 AM EDT URINALYSIS WITH REFLEX MICROSCOPIC Routine 11/29/2024 11:17 PM EDT UREA NITROGEN, RANDOM URINE Routine 11/29/2024 11:17 PM EDT CREATININE, RANDOM URINE Routine 11/29/2024 11:17 PM EDT SODIUM, URINE, RANDOM Routine 11/29/2024 11:17 PM EDT COMPREHENSIVE URINE DRUG SCREENING,QUALITATIVE ASSAY, >= 27 DRUG CLASSES STAT 11/29/2024 9:34 PM EDT BLOOD GAS PANEL, VENOUS STAT 11/29/2024 8:30 PM EDT URINE MEEK PANEL STAT 11/29/2024 7:58 PM EDT URINALYSIS WITH REFLEX MICROSCOPIC STAT 11/29/2024 7:58 PM EDT URINALYSIS WITH REFLEX MICROSCOPIC AND CULTURE STAT 11/29/2024 7:[address] HEAD WO IV CONTRAST STAT 7:42 PM EDT N-TERMINAL PROBNP, PLASMA STAT Add-on 11/29/2024 7:35 PM EDT BASIC METABOLIC PANEL, PLASMA STAT 11/29/2024 7:35 PM EDT PHOSPHORUS, PLASMA STAT 11/29/2024 7: 35 PM EDT MAGNESIUM, PLASMA STAT 11/29/2024 7:3 5 PM EDT XR CHEST 1 VIEW STAT 11/29/2024 7:19 PM EDT BLOOD GAS PANEL, VENOUS Routine 11/29/2024 2:35 PM EDT COMPREHENSIVE METABOLIC PANEL, PLASMA STAT 11/29/2024 2:35 PM EDT Extensive stage primary small cell carcinoma of lung TSH REFLEX FT4 Routine 11/29/2024 12:19 PM EDT Extensive stage primary small cell carcinoma of lung MAGNESIUM, PLASMA STAT 11/29/2024 12:19 PM EDT Extensive stage primary small cell carcinoma of lung COMPREHENSIVE METABOLIC PANEL, PLASMA Routine 11/29/2024 12:19 PM EDT Extensive stage primary small cell carcinoma of lung CBC WITH AUTO DIFFERENTIAL Routine 11/29/2024 12:19 PM EDT Extensive stage primary small cell carcinoma of lung POCT GLUCOSE METER UNSOLICITED RESULTS Routine 11/22/2024 [...] ECG ADULT STAT 10/25/2024 10:12 AM EDT [facility] ED POCUS PROCDOC Routine 10/25/2024 9:51 AM EDT [facility] ED POCUS PROCDOC Routine 10/25/2024 9:51 [...] (SO) Routine 10/14/2024 10:24 AM EDT MADINA ALMANZA [...] ADULT STAT 10/12/2024 3:39 PM EDT CARIS MO TUMOR SEEK HYBRID + IHCS AND OTHER [...] stage primary small cell carcinoma of lung HEMOGLOBIN A1C Routine 09/02/2024 3:25 AM EDT HEPATITIS C ANTIBODY - ED W/REFLEX TO HCV QUANT PCR STAT 08/31/2024 5:54 PM EDT ED HIV 1/2 ANTIBODY/ANTIGEN SCREEN WITH REFLEX TO HIV I/II DIFFERENTIATION STAT 08/31/2024 5:54 PM EDT from Last 3 Months or Most Recently Relevant to Health Maintenance Results * (ABNORMAL) Creatinine, plasma (01/02/2025 10:40 AM EDT) Only the most recent of2 resultswithin the time period is included. Creatinine, Plasma 1.23(H) 0.60 - 1.10 mg/dL 01/02/2025 3:54 PM EDT [facility] eGFRcr 49.2 mL/min/1.7 3m*2 01/02/2025 3:54 PM EDT [facility] Comment:Reported eGFRcr in m L/min/1.73m2 is based the CKD-EPI 2020 equation that does not use a race coefficient. Blood Venous blood specimen / Unknown 01/02/2025 10:40 AM EDT 01/02/2025 3:21 PM EDT us Yosi Richmond MD LAB BLOOD ORDERABLES Final Result [facility] [address] [place] [address] * (ABNORMAL) CBC and Differential (01/02/2025 10:40 AM EDT) Only the most recent of20 resultswithin the time period is included. WBC Count 8.22 3.70 - 10.30 10*3/uL LAB HEMATOLOGY METHOD 01/02/2025 3:41 PM EDT [facility] RBC Count 3.01(L) 3.90 - 5.20 10*6/uL LAB HEMATOLOGY METHOD 01/02/2025 3:41 PM EDT [facility] HGB 9.2(L) 11.2 - 15.7 g/dL LAB HEMATOLOGY METHOD 01/02/2025 3:41 PM EDT [facility] HCT 29.9(L) 34.0 - 45.0 % LAB HEMATOLOGY METHOD 01/02/2025 3:41 PM EDT [facility] Platelet Count 161 155 - 369 10*3/uL LAB HEMATOLOGY METHOD 01/02/2025 3:41 PM EDT [facility] MCV 99(H) 79 - 98 fL LAB HEMATOLOGY METHOD 01/02/2025 3:41 PM EDT [facility] MCH 30.6 26.0 - 32.0 pg LAB HEMATOLOGY METHOD 01/02/2025 3:41 PM EDT [facility] MCHC 30.8 30.7 - 35.5 g/dL LAB HEMATOLOGY METHOD 01/02/2025 3:41 PM EDT [facility] RDW 20.6(H) 11.5 - 14.5 % LAB HEMATOLOGY METHOD 01/02/2025 3:41 PM EDT [facility] MPV 10.5 8.8 - 12.5 fL LAB HEMATOLOGY METHOD 01/02/2025 3:41 PM EDT [facility] nRBC 0.0 <=0.0 per 100 WBCs LAB HEMATOLOGY METHOD 01/02/2025 3:41 PM EDT [facility] Differential Type Automated LAB HEMATOLOGY METHOD 01/02/2025 3:41 PM EDT [facility] Neutrophils % 71 % LAB HEMATOLOGY METHOD 01/02/2025 3:41 PM EDT [facility] Lymphocytes % 16 % LAB HEMATOLOGY METHOD 01/02/2025 3:41 PM EDT [facility] Monocytes % 8 % LAB HEMATOLOGY METHOD 01/02/2025 3:41 PM EDT [facility] Eosinophils % 3 % LAB HEMATOLOGY METHOD 01/02/2025 3:41 PM EDT [facility] Basophils % 1 % LAB HEMATOLOGY METHOD 01/02/2025 3:41 PM EDT [facility] Immature Granulocytes % 1 % LAB HEMATOLOGY METHOD 01/02/2025 3:41 PM EDT [facility] Neutrophils Absolute 5.81 1.60 - 6.10 10*3/uL LAB HEMATOLOGY METHOD 01/02/2025 3:41 PM EDT [facility] Lymphocytes Absolute 1.34 1.20 - 3.90 10*3/uL LAB HEMATOLOGY METHOD 01/02/2025 3:41 PM EDT [facility] Monocytes Absolute 0.65 0.30 - 0.90 10*3/uL LAB HEMATOLOGY METHOD 01/02/2025 3:41 PM EDT [facility] Eosinophils Absolute 0.28 0.00 - 0.50 10*3/uL LAB HEMATOLOGY METHOD 01/02/2025 3:41 PM EDT [facility] Basophils Absolute 0.10 0.00 - 0.10 10*3/uL LAB HEMATOLOGY METHOD 01/02/2025 3:41 PM EDT [facility] Immature Granulocytes Absolute 0.04 0.00 - 0.06 10*3/uL LAB HEMATOLOGY METHOD 01/02/2025 3:41 PM EDT [facility] Blood Venous blood specimen / Unknown 01/02/2025 10:40 AM EDT 01/02/2025 3:21 PM EDT Narrative [facility] - 01/02/2025 3:41 PM EDT Therapeutic decision making should be based on absolute values, rather than percentages. us Yosi Richmond MD LAB BLOOD ORDERABLES Final Result Performing Organization Address City/[facility]/ZIP Co de Phone Number [facility] [address] [place] [phone] * C-reactive protein (01/02/2025 10:40 AM EDT) Only the most recent of7 resultswithin the time period is included. CRP, Plasma <3.0 <=8.0 mg/L 01/02/2025 3:54 PM EDT [facility] Blood Venous blood specimen / Unknown 01/02/2025 10:40 AM EDT 01/02/2025 3:21 PM EDT Narrative [facility] - 01/02/2025 3:54 PM EDT This CRP test is appropriate for assessment of infection, systemic inflammation and/or tissue injury. To assess cardiovascular disease risk order high sensitivity CRP (CRPH). us Yosi Richmond MD LAB BLOOD ORDERABLES Final Result [facility] [address] [place] [address] * Urea Nitrogen, Plasma (01/02/2025 10:40 AM EDT) Only the most recent of2 resultswithin the time period is included. BUN, Plasma 17 8 - 23 mg/dL 01/02/2025 3:54 PM EDT [facility] Blood Venous blood specimen / Unknown 01/02/2025 10:40 AM EDT 01/02/2025 3:21 PM EDT us Yosi Richmond MD LAB BLOOD ORDERABLES Final Result Performing Organization Address [facility] de Phone Number [facility] [address] [place] [address] * XR Chest 1 View (12/31/2024 1:49 PM EDT) Only the most recent of6 resultswithin the time period is included. Anatomical Region Laterality Modality Chest Digital Radiogra [...] Berta Richardson MD on 12/31/2024 1:41 PM us Jorge Richey MD IMG XR PROCEDURES Final Result * (ABNORMAL) POCT glucose meter (12/22/2024 12:43 PM EDT) Only the most recent of144 resultswithin the time period is included. POCT Glucose 189(H) 74 - 99 mg/dL 12/22/2024 12:45 PM EDT [facility] Comment:Accuracy of a [...] Comment 12/22/2024 12:45 PM EDT [facility] Oliving Machine Operator ID Marciano Mai 12/22/2024 12:45 PM EDT [facility] Device ID [id number] 12/22/2024 12:45 PM EDT [facility] Specimen Type POC Capillary 12/22/2024 12:45 PM EDT [facility] Blood Capillary blood specimen / Unknown 12/22/2024 12:43 PM EDT 12/22/2024 12:45 PM EDT us Yosi Richmond MD LAB POINT OF CARE T EST DOCKED DEVICE UNSOLICITED RESULTS Final Result [facility] [address] [place] [address] * (ABNORMAL) CBC W/O Differential (12/22/2024 12:26 AM EDT) Only the most recent of17 resultswithin the time period is included. WBC Count 5.98 3.70 - 10.30 10*3/uL LAB HEMATOLOGY METHOD 12/22/2024 12:43 AM EDT [facility] [facility] RBC Count 2.50(L) 3.90 - 5.20 10*6/uL LAB HEMATOLOGY METHOD 12/22/2024 12:43 AM EDT [facility] HGB 7.3(L) 11.2 - 15.7 g/dL LAB HEMATOLOGY METHOD 12/22/2024 12:43 AM EDT [facility] HCT 23.7(L) 34.0 - 45.0 % LAB HEMATOLOGY METHOD 12/22/2024 12:43 AM EDT [facility] Platelet Count 152(L) 155 - 369 10*3/uL LAB HEMATOLOGY METHOD 12/22/2024 12:43 AM EDT [facility] MCV 95 79 - 98 fL LAB HEMATOLOGY METHOD 12/22/2024 12:43 AM EDT [facility] MCH 29.2 26.0 - 32.0 pg LAB HEMATOLOGY METHOD 12/22/2024 12:43 AM EDT [facility] MCHC 30.8 30.7 - 35.5 g/dL LAB HEMATOLOGY METHOD 12/22/2024 12:43 AM EDT [facility] RDW 19.8(H) 11.5 - 14.5 % LAB HEMATOLOGY METHOD 12/22/2024 12:43 AM EDT [facility] MPV 9.7 8.8 - 12.5 fL LAB HEMATOLOGY METHOD 12/22/2024 12:43 AM EDT [facility] nRBC 0.0 <=0.0 per 100 WBCs LAB HEMATOLOGY METHOD 12/22/2024 12:43 AM EDT [facility] Blood Venous blood specimen / Unknown Venipuncture / Unknown 12/22/2024 12:26 AM EDT 12/22/2024 12:36 AM EDT us Yosi Richmond MD LAB BLOOD ORDERABLES Final Result [facility] [address] [place] [address] * (ABNORMAL) Magnesium (12/22/2024 12:26 AM EDT) Only the most recent of26 resultswithin the time period is included. Magnesium, Plasma 1.1(L) 1.9 - 2.4 mg/dL 12/22/2024 1:04 AM EDT [facility] Blood Venous blood specimen / Unknown Venipuncture / Unknown 12/22/2024 12:26 AM EDT 12/22/2024 12:35 AM EDT us Yosi Richmond MD LAB BLOOD ORDERABLES Final Result [facility] [address] [place] [address] * (ABNORMAL) Basic metabolic panel (12/22/2024 12:26 AM EDT) Only the most recent of21 resultswithin the time period is included. Glucose, Plasma 160(H) 74 - 99 mg/dL 12/22/2024 1:04 AM EDT [facility] BUN, Plasma 7(L) 8 - 23 mg/dL 12/22/2024 1:04 AM EDT [facility] Creatinine, Plasma 0.96 0.60 - 1.10 mg/dL 12/22/2024 1:04 AM EDT [facility] BUN/Creatinine Ratio 7 12/22/2024 1:04 AM EDT [facility] Sodium, Plasma 144 136 - 145 mmol/L 12/22/2024 1:04 AM EDT [facility] Potassium, Plasma 3.0(L) 3.6 - 4.9 mmol/L 12/22/2024 1:04 AM EDT [facility] Chloride, Plasma 110(H) 97 - 107 mmol/L 12/22/2024 1:04 AM EDT [facility] CO2, Plasma 24 22 - 29 mmol/L 12/22/2024 1:04 AM EDT [facility] Anion Gap 10 6 - 16 mmol/L 12/22/2024 1:04 AM EDT [facility] Total Calcium, Plasma 8.3(L) 8.9 - 10.2 mg/dL 12/22/2024 1:04 AM EDT [facility] eGFRcr 66.2 mL/min/1.7 3m*2 12/22/2024 1:04 AM EDT [facility] Comment:Reported eGFRcr in m L/min/1.73m2 is based the CKD-EPI 2020 equation that does not use a race coefficient. Blood Venous blood specimen / Unknown Venipuncture / Unknown 12/22/2024 12:26 AM EDT 12/22/2024 12:35 AM EDT us Yosi Richmond MD LAB BLOOD ORDERABLES Final Result [facility] [address] [place] [address] * Anti Xa Level by Unfractionated Heparin - Heparin Drip Titration (12/21/2024 7:30 AM EDT) Only the most recent of8 resultswithin the time period is included. Anti Xa Level Unfractionated Heparin 0.56 <1.00 IU/mL LAB COAGULATION METHOD 12/21/2024 8:08 AM EDT [facility] Blood Venous blood specimen / Unknown Venipuncture / Unknown 12/21/2024 7:30 AM EDT 12/21/2024 7:38 AM EDT Narrative [facility] - 12/21/2024 8:08 AM EDT Therapeutic Range: UFH Full Dose and ACS/MO protocols*: 0.30 - 0.70 IU/mL UFH Low Dose protocol*: 0.25 - 0.50 IU/mL UFH prophylaxis: Not established us Deandre Cabrera MD LAB BLOOD ORDERABLES Final Re sult [facility] [address] [place] [address] * Phosphorus, Plasma (12/20/2024 2:20 AM EDT) Only the most recent of11 resultswithin the time period is included. Phosphorus, Plasma 3.3 2.5 - 4.5 mg/dL 12/20/2024 3:00 AM EDT [facility] Blood Venous blood specimen / Unknown Venipuncture / Unknown 12/20/2024 2:20 AM EDT 12/20/2024 2:31 AM EDT Lisa Lloyd DO LAB BLOOD ORDERABLES Final Resu lt [facility] [address] [place] [address] * (ABNORMAL) Comprehensive Metabolic Panel, Plasma (12/20/2024 2:20 AM EDT) Only the most recent of18 resultswithin the time period is included. Glucose, Plasma 120(H) 74 - 99 mg/dL 12/20/2024 3:00 AM EDT [facility] BUN, Plasma 7(L) 8 - 23 mg/dL 12/20/2024 3:00 AM EDT [facility] Creatinine, Plasma 0.90 0.60 - 1.10 mg/dL 12/20/2024 3:00 AM EDT [facility] BUN/Creatinine Ratio 8 12/20/2024 3:00 AM EDT [facility] Sodium, Plasma 145 136 - 145 mmol/L 12/20/2024 3:00 AM EDT [facility] Potassium, Plasma 3.4(L) 3.6 - 4.9 mmol/L 12/20/2024 3:00 AM EDT [facility] Chloride, Plasma 112(H) 97 - 107 mmol/L 12/20/2024 3:00 AM EDT [facility] CO2, Plasma 23 22 - 29 mmol/L 12/20/2024 3:00 AM EDT [facility] Anion Gap 10 6 - 16 mmol/L 12/20/2024 3:00 AM EDT [facility] Total Calcium, Plasma 8.5(L) 8.9 - 10.2 mg/dL 12/20/2024 3:00 AM EDT [facility] Total Protein 6.0(L) 6.3 - 7.9 g/dL 12/20/2024 3:00 AM EDT [facility] Albumin, Plasma 2.7(L) 3.5 - 5.2 g/dL 12/20/2024 3:00 AM EDT [facility] AST, Plasma 17 10 - 35 U/L 12/20/2024 3:00 AM EDT [facility] ALT, Plasma 6(L) 10 - 35 U/L 12/20/2024 3:00 AM EDT [facility] Alkaline Phosphatase, Plasma 67 46 - 142 U/L 12/20/2024 3:00 AM EDT [facility] Total Bilirubin, Plasma 0.3 0.2 - 1.1 mg/dL 12/20/2024 3:00 AM EDT [facility] eGFRcr 71.5 mL/min/1.7 3m*2 12/20/2024 3:00 AM EDT [facility] Comment:Reported eGFRcr in m L/min/1.73m2 is based the CKD-EPI 2020 equation that does not use a race coefficient. Blood Venous blood specimen / Unknown Venipuncture / Unknown 12/20/2024 2:20 AM EDT 12/20/2024 2:31 AM EDT [facility] BLOOD ORDERABLES Final Resu lt Performing Organization Address City/State/[facility] Co de Phone Number [facility] [address] [place] [address] * TSH Reflex FT4 (12/19/2024 12:25 AM EDT) Only the most recent of3 resultswithin the time period is included. Thyroid Stimulating Hormone, Plasma 3.21 0.40 - 4.20 uIU/mL 12/19/2024 1:24 AM EDT [facility] Blood Venous blood specimen / Unknown Venipuncture / Unknown 12/19/2024 12:25 AM EDT 12/19/2024 12:45 AM EDT [facility] BLOOD ORDERABLES Final Resu lt [facility] [address] [place] [address] * (ABNORMAL) N-Terminal Probnp (12/19/2024 12:25 AM EDT) Only the most recent of4 resultswithin the time period is included. N-Terminal, PROBNP, Plasma 2,653(H) 0 - 899 pg/mL 12/19/2024 1:24 AM EDT [facility] Blood Venous blood specimen / Unknown Venipuncture / Unknown 12/19/2024 12:25 AM EDT 12/19/2024 12:45 AM EDT us Lisa Lloyd DO LAB BLOOD ORDERABLES Final [facility] Performing Organization Address City/[facility]/ZIP Co de Phone Number [facility] [address] [place] [address] * PICC DOUBLE LUMEN (SMARTFORM LINK) (12/18/2024 11:40 PM EDT) Narrative Brian Dai RN - 12/18/2024 11:40 PM EDT Brian Dai RN 12/19/2024 1:05 AM Insert PICC line Performed by: Brian Dai, RN Authorized by: Lisa Lloyd DO [place] Protocol: Verbal consent obtained?: Yes Written consent [...] Left Location (Adult): Basilic vein (Largest vein, [id number] ratio 18%.) Site selection rationale: Infiltration from PIV in RUE. Patient position: Supine Catheter Lot #: [id number] Catheter business performance analyst: Bard Power PICC Provena Catheter with Solo [...] okay to use order will be placed. Coolin limb precaution armband placed on left wrist for PICC precautions while PICC is in place (No sticks/BP's). Green alcohol caps placed on ends of each lumen hub/heplock. VAT consult completed. Lisa Lenka Lloyd DO IV THERAPY ORDERABLES Edited Re sult - Final * ECG Adult (12/18/2024 4:47 PM EDT) Only the most recent of18 resultswithin the time period is included. EKG DIAGNOSIS CLASS Abnormal MUSE ECG Ventricular Rate 139 BPM MUSE ECG QRSD Interval 86 ms MUSE ECG QT Interval 314 ms MUSE ECG QTC Interval 477 ms MUSE ECG R [place] 7 degrees MUSE ECG T Wave [place] 26 degrees MUSE ECG Diagnosis Atrial fibrillation with rapid ventricular response MUSE ECG Diagnosis Nonspecific ST and T wave abnormality MUSE ECG Diagnosis Borderline QT interval MUSE ECG Diagnosis Abnormal ECG MUSE ECG Diagnosis MUSE ECG Diagnosis Confirmed by Joey Perkins ([id number]) on 12/19/2024 2:57:40 PM MUSE ECG 12/18/2024 4:47 PM EDT 12/19/2024 2:57 PM EDT Result [facility] Lisa Lloyd DO ECG ORDERABLES Final Result MUSE ECG * Transfuse RBC (12/18/2024 3:42 PM EDT) Only the most recent of6 resultswithin the time period is included. Result [facility] Lisa Lloyd DO BLOOD TRANSFUSION ORDERABLES Fi nal Result * PERIPHERAL IV (SMARTFORM LINK) (12/18/2024 2:20 PM EDT) Only the most recent of7 resultswithin the time period is included. Narrative Rosalind Narvaez RN - 12/18/2024 2:20 [...] semipermeable dressing Education provided to: Patient us Lisa Lloyd DO IV THERAPY ORDERABLES Final Res ult * Prepare Leukocyte Reduced RBC: 1 Units (12/18/2024 9:09 AM EDT) Only the most recent of5 resultswithin the time period is included. Product Code [id number] CH BLOO D BANK Dispense Status Transfused BLOOD BANK Blood Expiration Date [id number] BLOOD BANK Unit Number [id number] CH B LOOD BANK Product Blood Type 5100 BLOOD BANK Blood Type O+ BLOOD BANK Crossmatch Compatible BLOOD BANK Other [employer] BLOOD BANK PRODUCT ORDERABLES F inal Result Performing Organization Address [facility] de Phone Number BLOOD BANK [address] [place] [address] * (ABNORMAL) Hemoglobin and Hematocrit, Blood (12/17/2024 9:59 PM EDT) Only the most recent of4 resultswithin the time period is included. HGB 6.9(L) 11.2 - 15.7 g/dL LAB HEMATOLOGY METHOD 12/17/2024 9:59 PM EDT [facility] HCT 22.2(L) 34.0 - 45.0 % LAB HEMATOLOGY METHOD 12/17/2024 9:59 PM EDT [facility] Blood Venous blood specimen / Unknown 12/17/2024 9:51 PM EDT [facility] LAB BLOOD ORDERABLES Final Resu lt Performing Organization Address City/[facility]/ZIP Co de Phone Number [facility] [address] [place] [address] * Type and Screen (12/17/2024 3:22 PM EDT) Only the most recent of5 resultswithin the time period is included. ABO/Rh O Positive 12/17/2024 12:01 AM EDT [facility]LO[facility] Antibody Screen Negative 12/17/2024 12:01 AM EDT BLO[facility] BANK Specimen Expiration 12/20/2024 23:59 12/17/2024 12:01 AM EDT [facility]LO[facility]ANK Blood Venous blood specimen / Unknown Venipuncture / Unknown 12/17/2024 3:22 PM EDT 12/17/2024 3:39 PM EDT Abhilash Bangura MD LAB BLOOD BANK TEST ORDERABLES Final Result Performing Organization Address [facility] Co de Phone Number BLOOD BANK [address] [place] [address], * Wilbur auris Surveillance by PCR (12/17/2024 4:24 AM EDT) Only the most recent of4 resultswithin the time period is included. Wilbur auris PCR Result Not Detected Not Detected 12/19/2024 5:43 AM EDT [facility] Swab (Axilla and Groin) Non-blood Collection / Unknown 12/17/2024 4:24 AM EDT 12/17/2024 5:09 AM EDT Narrative [facility] - 12/19/2024 5:43 AM EDT This PCR assay was developed and its performance characteristics determined by [email or web address] as appropriate for clinical purposes. This assay has not been cleared or approved by the FDA, but is performed in a CLIA regulated laboratory that is qualified to perform high-complexity testing. Ry Stewart MD LAB MICROBIOLOGY - GENERAL ORDER SOLOMON Final Result Performing Organization Address City/[facility] Co de Phone Number [facility] [address] [place] [address] * Fungal Culture, Tissue and GARO (12/16/2024 1:59 PM EDT) Culture Reading Mycological 4 Weeks Fungal culture overgrown with bacteria 12/30/2024 6:53 AM EDT [facility] GARO No fungal elements seen 12/30/2024 6:53 AM EDT [facility] Bone Topography unknown / Unknown 12/16/2024 1:59 PM EDT 12/16/2024 3:02 PM EDT Comment:Pre-op diagnosis: Incisional infection [T81.49XA] Abhilash Bangura MD LAB MICROBIOLOGY - GENERAL ORD ERABLES Final Result Performing Organization Address City/[facility]/ZIP Co de Phone Number [facility] [address] [place] [address] * (ABNORMAL) Bone Culture and Gram Stain (12/16/2024 1:59 PM EDT) Culture Light Growth 12/21/2024 3:10 PM EDT [facility] Culture Pseudomonas aeruginosa MDR, HAND FABRIC CUTTER(AA) DONAVAN 12/21/2024 3:10 PM EDT [facility] Comment: This isolate has been identified using the FDA Approved [employer] [place] System The organism value for this result has been updated. These results have been appended to the previously preliminary verified report. Edited result: Previously reported as Pseudomonas aeruginosa on 12/20/2024 at 0807 EDT. This is a corrected result. Previous organism was Pseudomonas aeruginosa MDR, RESIDENT PHYSICIAN IN RADIOLOGY on 12/20/2024 at 1256 EDT. Gram Stain Result Moderate Polymorphonuclear leukocytes 12/21/2024 3:10 PM EDT [facility] Gram Stain Result No organisms seen 12/21/2024 3:10 PM EDT [facility] Bone Topography unknown / Unknown 12/16/2024 1:59 PM EDT 12/16/2024 3:02 PM EDT Comment:Pre-op diagnosis: Incisional infection [T81.49XA] Narrative Organism Antibiotic Method Susceptibility Pseudomonas aeruginosa MDR, HAND FABRIC CUTTER Aztreonam DONAVAN 8 ug/ml: Susceptible Pseudomonas aeruginosa MDR, HAND FABRIC CUTTER Cefepime DONAVAN 8 ug/ml: Susceptible Pseudomonas aeruginosa MDR, HAND FABRIC CUTTER Levofloxacin DONAVAN >4 ug/ml: Resistant Pseudomonas aeruginosa MDR, HAND FABRIC CUTTER Meropenem ODNAVAN >8 ug/ml: Resistant Pseudomonas aeruginosa MDR, HAND FABRIC CUTTER Tobramycin DONAVAN >8 ug/ml: Resistant Pseudomonas aeruginosa MDR, HAND FABRIC CUTTER Piperacillin/Tazobactam ETEST 96.0 ug/ml: Resistant Comment:The previously repor samaria component Piperacillin/Tazobactam is no longer being reported. Abhilash Bangura MD LAB MICROBIOLOGY - GENERAL ORD ERABLES Edited Result - Final Performing Organization Address City/[facility]/ZIP Co de Phone Number [facility] [address] [place] [address] * Anaerobic Culture (12/16/2024 1:59 PM EDT) Only the most recent of2 resultswithin the time period is included. Culture No anaerobes isolated 12/20/2024 2:47 PM EDT [facility] Bone Topography unknown / Unknown 12/16/2024 1:59 PM EDT 12/16/2024 3:02 PM EDT Comment:Pre-op diagnosis: Incisional infection [T81.49XA] us Abhilash Bangura MD LAB MICROBIOLOGY - GENERAL ORD ERABLES Final Result [facility] [address] [place] [address] * (ABNORMAL) Routine Culture and Gram Stain (12/16/2024 1:58 PM EDT) Culture Light Growth 12/21/2024 3:10 PM EDT [facility] Culture Pseudomonas aeruginosa MDR, HAND FABRIC CUTTER(AA) DONAVAN 12/21/2024 3:10 PM EDT [facility] Comment: This isolate has been identified using the FDA Approved [employer] [place] System The organism value for this result has been updated. These results have been appended to the previously preliminary verified report. Edited result: Previously reported as Pseudomonas aeruginosa on 12/20/2024 at 0807 EDT. This is a corrected result. Previous organism was Pseudomonas aeruginosa HAND FABRIC CUTTER on 12/21/2024 at 1131 EDT. Gram Stain Result Moderate Polymorphonuclear leukocytes 12/21/2024 3:10 PM EDT [facility] Gram Stain Result No organisms seen 12/21/2024 3:10 PM EDT [facility] Swab Topography unknown / Unknown 12/16/2024 1:58 PM EDT 12/16/2024 3:01 PM EDT Comment:Pre-op diagnosis: Incisional infection [T81.49XA] Narrative Organism Antibiotic Method Susceptibility Pseudomonas aeruginosa MDR, HAND FABRIC CUTTER Aztreonam DONAVAN 8 ug/ml: Susceptible Pseudomonas aeruginosa MDR, HAND FABRIC CUTTER Cefepime DONAVAN 8 ug/ml: Susceptible Pseudomonas aeruginosa MDR, HAND FABRIC CUTTER Levofloxacin DONAVAN >4 ug/ml: Resistant Pseudomonas aeruginosa MDR, HAND FABRIC CUTTER Meropenem DONAVAN >8 ug/ml: Resistant Pseudomonas aeruginosa MDR, HAND FABRIC CUTTER Tobramycin DONAVAN >8 ug/ml: Resistant Pseudomonas aeruginosa MDR, HAND FABRIC CUTTER Piperacillin/Tazobactam ETEST 96.0 ug/ml: Resistant Comment:The previously repor samaria component Piperacillin/Tazobactam is no longer being reported. Abhilash Bangura MD LAB MICROBIOLOGY - GENERAL ORD ERABLES Edited Result - Final Performing Organization Address [facility] [place] [address] * Fungal Culture, Routine (12/16/2024 1:58 PM EDT) Culture No Fungal Growth at 1 Week 12/23/2024 6:39 AM EDT [facility] Swab Topography unknown / Unknown 12/16/2024 1:58 PM EDT 12/16/2024 3:01 PM EDT Comment:Pre-op diagnosis: Incisional infection [T81.49XA] Abhilash Bangura MD LAB MICROBIOLOGY - GENERAL ORD ERABLES Final Result Performing Organization Address [facility] [place] [address] * NE AN ELECTIVE ENDOTRACHEAL AIRWAY, PB ANESTHESIA PLACEHOLDER [...] Garcia MD ANESTHESIA ORDERABLES F inal Result * (ABNORMAL) Respiratory Culture and Gram Stain (12/16/2024 8:47 AM EDT) Only the most recent of3 resultswithin the time period is included. Culture Smear contains >=10 squamous epithelial cells per low power field, suggestive of poor quality. Culture not performed. A credit has been issued. 12/16/2024 9:50 AM EDT [facility] Gram Stain Result Greater than 10 Epithelial cells/LPF(A) 12/16/2024 9:50 AM EDT [facility] Gram Stain Result Fewer than 25 WBC/LPF(A) 12/16/2024 9:50 AM EDT [facility] Gram Stain Result Few Gram positive cocci in clusters(A) 12/16/2024 9:50 AM EDT [facility] Gram Stain Result Rare Gram positive cocci in pairs and chains(A) 12/16/2024 9:50 AM EDT [facility] Gram Stain Result Few Gram negative rods(A) 12/16/2024 9:50 AM EDT [facility] Gram Stain Result Rare Budding yeast(A) 12/16/2024 9:50 AM EDT [facility] Sputum Coughed sputum specimen / Unknown Non-blood Collection / Unknown 12/16/2024 8:47 AM EDT 12/16/2024 9:09 AM EDT us Gordy Calderón APRN, [facility] LAB MICROBIOLOGY - GENERAL ORDERABLES Final Result [facility] [address] [place] [address] * Streptococcus pneumoniae and Legionella Urinary Antigen (12/16/2024 8:39 AM EDT) Only the most recent of4 resultswithin the time period is included. Legionella pneumophila serogroup 1 Antigen Result (Urine) Negative Negative 12/16/2024 10:35 AM EDT [facility] Streptococcus pneumoniae Antigen Result (Urine) Negative Negative 12/16/2024 10:35 AM EDT [facility] Urine Urine specimen obtained by clean catch procedure / Unknown Non-blood Collection / Unknown 12/16/2024 8:39 AM EDT 12/16/2024 9:09 AM EDT us Gordy Calderón APRN, DNP LAB MICROBIOLOGY - GENERAL ORDERABLES Final Result [facility] [address] [place] [address] * Histoplasma Galactomannan EIA, Urine (SO) (12/16/2024 [...] Histoplasma Galactomannan EIA is a product of [employer], [employer]. and is labeled for in-vitro diagnostic use. This test has been registered with the FDA and is considered safe and effective for the detection of Histoplasma Galactomannan. Testing Performed at: [facility] [address] [place] [address], [address] [place] [address] Alterations Manager: Anatoly Turk, PhD [facility] ([facility]) CLIA # [id number] FLAG Interpretation: A = Abnormal, H = High, L = Low Urine Urine specimen obtained by clean catch procedure / Unknown Non-blood Collection / Unknown 12/16/2024 8:39 AM EDT 12/16/2024 9:04 AM EDT Narrative [facility] ([facility]) - 12/17/2024 5:07 PM EDT Release to patient in [facility]->Immediate us Gordy Calderón APRN, DNP LAB REF LAB BLOOD AND FLUID ORD Final Result [facility] ([facility]) * APTT (12/16/2024 8:24 AM EDT) Only the most recent of3 resultswithin the time period is included. aPTT 26 25 - 35 sec 12/16/2024 8:43 AM EDT [facility] Blood Venous blood specimen / Unknown Venipuncture / Unknown 12/16/2024 8:24 AM EDT 12/16/2024 8:28 AM EDT us Abhilash Bangura MD LAB BLOOD ORDERABLES Final Res ult [facility] [address] [place] [address] * (ABNORMAL) Prothrombin Time/INR (12/16/2024 8:24 AM EDT) Only the most recent of5 resultswithin the time period is included. Prothrombin Time 15.1(H) 12.0 - 14.3 sec 12/16/2024 8:42 AM EDT [facility] INR 1.2(H) 0.9 - 1.1 12/16/2024 8:42 AM EDT [facility] Blood Venous blood specimen / Unknown Venipuncture / Unknown 12/16/2024 8:24 AM EDT 12/16/2024 8:28 AM EDT Narrative [facility] - 12/16/2024 8:42 AM EDT OPTIMAL INR RANGES FOR PATIENT ON ORAL ANTICOAGULANT THERAPY Prevention of venous thromboembolism INR 2.0 to 3.0 In patients with heart disease: Atrial fibrillation INR 2.0 to 3.0 Valvular heart disease INR 2.0 to 3.0 Tissue heart valves INR 2.0 to 3.0 Mechanical prosthetic valves INR 2.5 to 3.5 Prevention of recurrent MO INR 2.5 to 3.5 Abhilash Bangura MD LAB BLOOD ORDERABLES Final Res ult [facility] [address] [place] [address] * Multi Drug Resistance Test (12/16/2024 7:50 AM EDT) Only the most recent of3 resultswithin the time period is included. Culture No growth at day 1 12/17/2024 9:52 AM EDT [facility] Swab (Nares and Carole Rectal) Non-blood Collection / Unknown 12/16/2024 7:50 AM EDT 12/16/2024 8:45 AM EDT Narrative [facility] - 12/17/2024 9:52 AM EDT This test was developed and its performance characteristics determined by the [facility]. Although the media is FDA-approved, it is not FDA-approved for all specimen types submitted. The FDA has determined that such clearance or approval is not necessary. This test is used for surveillance purposes. It should not be regarded as investigational or for research. The [facility] is certified under the Clinical Laboratory Improvement Amendments of 1988 (CLIA-88) as qualified to perform high complexity clinical laboratory testing. Gordy Calderón APRN, [facility] LAB MICROBIOLOGY - GENERAL ORDERABLES Final Result Performing Organization Address City/[facility] Co de Phone Number [facility] [address] [place] [address] * Methicillin Resistant Staphylococcus aureus (MRSA) by PCR (12/16/2024 7:50 AM EDT) Only the most recent of4 resultswithin the time period is included. Methicillin Resistant Staphylococcus aureus (MRSA) by PCR Not Detected Not Detected 12/16/2024 10:01 AM EDT [facility] Swab Both anterior nares / Unknown Non-blood Collection / Unknown 12/16/2024 7:50 AM EDT 12/16/2024 8:46 AM EDT Narrative [facility] - 12/16/2024 10:01 AM EDT This test is FDA approved for use with nares swab specimens using the eSw[employer]. This test is used for clinical purposes. It should not be regarded as investigational or for research. This laboratory is certified under the Clinical Laboratory improvement Amendments of 1988 (CLIA-88 as qualified to perform high complexity clinical laboratory testing. Gordy Calderón APRN [facility] MICROBIOLOGY - GENERAL ORDERABLES Final Result Performing Organization Address City/[facility] de Phone Number [facility] [facility] [address] [place] [address] * (ABNORMAL) Procalcitonin (12/16/2024 5:52 AM EDT) Only the most recent of4 resultswithin the time period is included. Procalcitonin, Plasma 0.15(H) <0.09 ng/mL 12/16/2024 7:10 AM EDT [facility] Blood Venous blood specimen / Unknown Venipuncture / Unknown 12/16/2024 5:52 AM EDT 12/16/2024 5:55 AM EDT Narrative [facility] - 12/16/2024 7:10 AM [...] predict 28 day mortality risk. Please consult www.wkvgov-qke-ptntmklnxw.Adlyfe for more information. Test performed at [facility], [facility]. us Gordy Calderón APRN, DNP LAB BLOOD ORDERAB LES Final Result Performing Organization Address City/[facility]/ZIP Co de Phone Number [facility] [address] [place] [address] * Blood Culture (Aerobic/Anaerobet Set) (12/16/2024 5:52 AM EDT) Only the most recent of10 resultswithin the time period is included. Culture No growth at day 5 12/21/2024 7:01 AM EDT [facility] Blood Venous blood specimen / Unknown Venipuncture / Unknown 12/16/2024 5:52 AM EDT 12/16/2024 6:14 AM EDT Narrative [facility] - 12/21/2024 7:01 AM EDT Low blood volume submitted, results may be compromised us Amilcar Ibarra MD LAB MICROBIOLOGY - G ENERAL ORDERABLES Final Result [facility] [address] [place] [address] * (ABNORMAL) Sedimentation Rate, Automated (12/16/2024 5:52 AM EDT) Only the most recent of2 resultswithin the time period is included. Sedimentation Rate 46(H) <30 mm/hr 2024 6:08 AM EDT [facility] Blood Venous blood specimen / Unknown Venipuncture / Unknown 12/16/2024 5:52 AM EDT 12/16/2024 5:55 AM EDT Amilcar Ibarra MD LAB BLOOD ORDERABLES Final Result Performing Organization Address City/[facility] Co de Phone Number [facility] [address] [place] [address] * (ABNORMAL) Troponin T, High Sensitivity, 2 Hour, Plasma (12/16/2024 1:39 AM EDT) Only the most recent of3 resultswithin the time period is included. Troponin T, High Sensitivity, 2 Hour 28(H) <14 ng/L 12/16/2024 2:08 AM EDT [facility] Troponin Delta 1 <10 ng/L 12/16/2024 2:08 AM EDT [facility] Troponin Delta Interpretation Not Significant 12/16/2024 2:08 AM EDT [facility] Comment:Not Significant. No acute change in troponin observed between the baseline and 2 hour samples. Blood Venous blood specimen / Unknown Venipuncture / Unknown 12/16/2024 1:39 AM EDT 12/16/2024 1:40 AM EDT Balwinder Lock MD LAB BLOOD ORDERABLES Final Resul t Performing Organization Address City/[facility] Co de Phone Number [facility] [address] [place] [address] * CT Angio Pulmonary Embolism (12/16/2024 1:30 AM EDT) Only the most recent of2 [...] Uriostegui MD on 12/16/2024 1:59 AM us Deandre Cabrera MD IMG CT PROCEDURES Final Resul [...] Manjit Uriostegui MD on 12/16/2024 2:02 AM Deandre Cabrera MD IMG CT PROCEDURES Final Resul t * SARS CoV-2/COVID-19 by PCR - Rapid (12/15/2024 11:19 PM EDT) Only the most recent of2 resultswithin the time period is included. [facility] SARS CoV-2/COVID-1 9 RNA PCR Result Not Detected Not Detected 12/16/2024 1:22 AM EDT [facility] Swab Nasopharyngeal structure / Unknown Non-blood Collection / Unknown 12/15/2024 11:19 PM EDT 12/16/2024 12:39 AM EDT Narrative [facility] - 12/16/2024 1:22 AM [...] MICROBIOLOGY - GENERAL ORDER SOLOMON Final Result [facility] [address] [place] [address] * Nasopharyngeal Respiratory Panel (12/15/2024 11:19 PM EDT) Only the most recent of4 resultswithin the time period is included. [facility] Nasopharyngeal Respiratory PCR Interpretation Not Detected for all analytes Not Detected for all analytes 12/16/2024 2:33 AM EDT [facility] Swab Nasopharyngeal structure / Unknown Non-blood Collection / Unknown 12/15/2024 11:19 PM EDT 12/16/2024 12:39 AM EDT Narrative [facility] - 12/16/2024 2:33 AM [...] Respiratory PCR Panel is performed using the [employer] instrument. This test is FDA approved for use with Nasopharyngeal swabs only. This test is used for clinical purposes. It should not be regarded as investigational or for research. [facility] Clinical Microbiology Laboratory is certified under the Clinical Laboratory Improvement Amendments of 1988 (CLIA-88) as qualified to perform high complexity clinical laboratory testing. us Balwinder Lock MD LAB MICROBIOLOGY - GENERAL ORDER SOLOMON Final Result Performing Organization Address City/[facility]/ZIP Co de Phone Number [facility] [address] [place] [address] * (ABNORMAL) Troponin now and 120 min (12/15/2024 11:18 PM EDT) Only the most recent of3 resultswithin the time period is included. Troponin T, High Sensitivity, 0 Hour 29(H) <14 ng/L 12/15/2024 11:55 PM EDT [facility] Blood Venous blood specimen / Unknown Venipuncture / Unknown 12/15/2024 11:18 PM EDT 12/15/2024 11:23 PM EDT us Balwinder Lock MD LAB BLOOD ORDERABLES Final Resul t Performing Organization Address City/[facility]/ZIP Co de Phone Number [facility] [address] [place] [address] * (ABNORMAL) Lipase (12/15/2024 11:18 PM EDT) Lipase, Plasma 15(L) 19 - 63 U/L 12/15/2024 11:55 PM EDT [facility] Blood Venous blood specimen / Unknown Venipuncture / Unknown 12/15/2024 11:18 PM EDT 12/15/2024 11:23 PM EDT Balwinder Lock MD LAB BLOOD ORDERABLES Final Resul t [facility] [address] [place] [address] * (ABNORMAL) Blood gas panel, venous (12/15/2024 11:18 PM EDT) Only the most recent of5 resultswithin the time period is included. pH, Venous 7.39 7.32 - 7.43 LAB HEMATOLOGY METHOD 12/15/2024 11:36 PM EDT [facility] pCO2, Venous 54(H) 37 - 52 mmHg LAB HEMATOLOGY METHOD 12/15/2024 11:36 PM EDT [facility] pO2, Venous 39 25 - 40 mmHg LAB HEMATOLOGY METHOD 12/15/2024 11:36 PM EDT [facility] SO2, Measured, Venous 68 65 - 80 % LAB HEMATOLOGY METHOD 12/15/2024 11:36 PM EDT [facility] Base Excess, Venous 6.5(H) -2.0 - 3.0 mmol/L LAB HEMATOLOGY METHOD 12/15/2024 11:36 PM EDT [facility] Bicarbonate, Calculated, Venous 32(H) 22 - 26 mmol/L LAB HEMATOLOGY METHOD 12/15/2024 11:36 PM EDT [facility] Hematocrit, Whole Blood 23.4(L) 34.0 - 45.0 % LAB HEMATOLOGY METHOD 12/15/2024 11:36 PM EDT [facility] Sodium, Whole Blood 142 136 - 145 mmol/L LAB HEMATOLOGY METHOD 12/15/2024 11:36 PM EDT [facility] Potassium, Whole Blood 3.8 3.6 - 4.9 mmol/L LAB HEMATOLOGY METHOD 12/15/2024 11:36 PM EDT [facility] Chloride, Whole Blood 100 97 - 107 mmol/L LAB HEMATOLOGY METHOD 12/15/2024 11:36 PM EDT [facility] Glucose, Whole Blood 126(H) 74 - 99 mg/dL LAB HEMATOLOGY METHOD 12/15/2024 11:36 PM EDT [facility] Lactate, Venous, Whole Blood 0.8 0.5 - 2.2 mmol/L LAB HEMATOLOGY METHOD 12/15/2024 11:36 PM EDT [facility] Ionized Calcium, Whole Blood 4.7 4.6 - 5.1 mg/dL LAB HEMATOLOGY METHOD 12/15/2024 11:36 PM EDT [facility] Blood Venous blood specimen / Unknown Venipuncture / Unknown 12/15/2024 11:18 PM EDT 12/15/2024 11:34 PM EDT us Balwinder Lock MD LAB BLOOD ORDERABLES Final Resul t Performing Organization Address City/[facility]/ZIP Co de Phone Number [facility] [address] [place] [address] * Vancomycin, random (12/09/2024 3:52 AM EDT) Only the most recent of5 resultswithin the time period is included. Pathologist [facility] Vancomycin, Random, Plasma 15.7 ug/mL 12/09/2024 4:41 AM EDT [facility] Blood Venous blood specimen / Unknown Venipuncture / Unknown 12/09/2024 3:52 AM EDT 12/09/2024 4:02 AM EDT us Bernice Eckert MD LAB BLOOD ORDERAB[place] [address] * ECHO, ADULT TRANSTHORACIC COMPLETE W/ STRAIN [...] ISCV LV MASS(C)D 241 g SOL ISCV UK CV ECHO LV MASS INDEX 108 g/m2 [...] is no recent study available for direct [id number] comparison. Left Ventricle The left ventricle is [...] is no recent study available for direct [id number] comparison. Wall Scoring Baseline Score Index: 1.00 The left ventricular wall motion is normal. us Bernice Eckert MD CV ECHO PROCEDURES Final Result * Fungal Culture, Cerebrospinal Fluid (CSF) and Emily Ink (12/06/2024 6:48 PM EDT) Only the most recent of2 resultswithin the time period is included. Culture No Fungal Growth at 3 Weeks 12/27/2024 5:53 AM EDT [facility] Emily Ink No fungal elements seen 12/27/2024 5:53 AM EDT [facility] Cerebrospinal Fluid Lumbar puncture / Unknown Non-blood Collection / Unknown 12/06/2024 6:48 PM EDT 12/06/2024 6:48 PM EDT us Noemí Leigh MD LAB MICROBIOLOGY - GENERAL ORD ERABLES Final Result [facility] [address] [place] [address] * Cryptococcal Antigen, CSF (12/06/2024 6:48 PM EDT) Only the most recent of2 resultswithin the time period is included. Cryptococcal Antigen Result (CSF) Negative Negative 12/07/2024 5:55 AM EDT [facility] Cerebrospinal Fluid Lumbar puncture / Unknown Non-blood Collection / Unknown 12/06/2024 6:48 PM EDT 12/06/2024 6:48 PM EDT Noemí Leigh MD LAB MICROBIOLOGY - GENERAL ORD ERABLES Final Result Performing Organization Address [facility]/ZIP Co de Phone Number [facility] [address] [place] [id number] * Herpes Simplex Virus (HSV) by PCR (12/06/2024 6:48 PM EDT) Herpes Simplex Virus 1 (HSV-1) PCR Result Not Detected Not Detected 12/07/2024 8:54 AM EDT [facility] Herpes Simplex Virus 2 (HSV-2) PCR Result Not Detected Not Detected 12/07/2024 8:54 AM EDT [facility] Cerebrospinal Fluid Lumbar puncture / Unknown Non-blood Collection / Unknown 12/06/2024 6:48 PM EDT 12/06/2024 6:48 PM EDT Narrative [facility] - 12/07/2024 8:54 AM EDT The [...] ORD ERABLES Final Result Performing Organization Address City/[facility] Co de Phone Number [facility] [address] [place] [address] * Cerebrospinal Fluid (CSF) Culture and Gram Stain (12/06/2024 6:48 PM EDT) Only the most recent of2 resultswithin the time period is included. Culture No growth at day 4 2024 2:22 PM EDT [facility] Gram Stain Rare Polymorphonuclear leukocytes 12/09/2024 2:22 PM EDT [facility] Gram Stain No organisms seen 025 2:22 PM EDT [facility] Cerebrospinal Fluid Lumbar puncture / Unknown Non-blood Collection / Unknown 12/06/2024 6:48 PM EDT 12/06/2024 6:48 PM EDT us Noemí Leigh MD LAB MICROBIOLOGY - GENERAL ORD ERABLES Final Result [facility] [address] [place] [address] * IR Lumbar Puncture (12/06/2024 4:24 PM EDT) Only the most recent of2 resultswithin the time period is included. Anatomical Region Laterality Modality Spine, L-spine X-Ray [...] PM COMPARISON: MR head reviewed from 12/01/2024. DETECTIVE SERGEANT: Lisa Romano PA-C SECONDARY TERRITORY REPRESENTATIVE: RT Scottie CONTRAST: 0 cc MEDICATIONS: 1% [...] PM COMPARISON: MR head reviewed from 12/01/2024. DETECTIVE SERGEANT: Lisa Romano PA-C SECONDARY TERRITORY REPRESENTATIVE: RT Scottie CONTRAST: 0 cc MEDICATIONS: 1% [...] PROCEDURES Final Resul t * CSF Panel (12/06/2024 4:21 PM EDT) Only the most recent of3 resultswithin the time period is included. Cerebrospinal Fluid Lumbar puncture / Unknown Non-blood Collection / Unknown 12/06/2024 4:21 PM EDT 12/06/2024 6:28 PM EDT us Bernice Ecketr MD LAB BODY FLUIDS AND STOOLS BENNETT NAYAK Final Result Performing Organization Address [facility] Co de Phone Number [facility] [address] [place] [address] * CSF, pathologist interpretation (12/06/2024 4:21 PM EDT) Specimen Type Cerebrospinal Fluid 12/07/2024 12:00 PM EDT [facility] Specimen Source, CSF Lumbar Puncture 12/07/2024 12:00 PM EDT [facility] Clinical Diagnosis, CSF Seizures, 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 A resident was involved in the service. I attest I examined the relevant preparations for the specimens and confirmed the diagnosis or interpretation. 12/07/2024 12:00 PM EDT [facility] Pathologist Signature, CSF 12/07/2024 12:00 PM EDT [facility] Comment:Reviewed by: Wilma Courtney MD LAB CP ASR DISCLAIMER Yes 12/07/2024 12:00 PM EDT [facility] Cerebrospinal Fluid Lumbar puncture / Unknown Non-blood Collection / Unknown 12/06/2024 4:21 PM EDT 12/06/2024 6:34 PM EDT us Noemí Leigh MD LAB PATHOLOGY ORDERABLES Final Result Performing Organization Address [facility] Co de Phone Number [facility] [address] [place] [address] * (ABNORMAL) CSF Cell Count w/ Manual Differential (12/06/2024 4:21 PM EDT) Only the most recent of2 resultswithin the time period is included. Unspun Color, CSF Colorless Colorless LAB HEMATOLOGY METHOD 12/06/2024 10:03 PM EDT [facility] Unspun Clarity, CSF Clear Clear LAB HEMATOLOGY METHOD 12/06/2024 10:03 PM EDT [facility] Spun Color, CSF LAB HEMATOLOGY METHOD 12/06/2024 10:03 PM EDT [facility] Comment:Test Not Indicated Spun Clarity, CSF LAB HEMATOLOGY METHOD 12/06/2024 10:03 PM EDT [facility] Comment:Test Not Indicated Volume CSF 5.0 cc LAB HEMATOLOGY METHOD 12/06/2024 10:03 PM EDT [facility] Tube Number, CSF Tube 4 LAB HEMATOLOGY METHOD 12/06/2024 10:03 PM EDT [facility] Red Blood Cell Count, CSF 7 0 uL uL LAB HEMATOLOGY METHOD 12/06/2024 10:03 PM EDT [facility] Comment:Test performed by ma nual method. Total Nucleated Cell Count, CSF 15(H) 0 - 5 L LAB HEMATOLOGY METHOD 12/06/2024 10:03 PM EDT [facility] Comment:Test performed by ma nual method. Neutrophils %, CSF 1 % LAB HEMATOLOGY METHOD 12/06/2024 10:03 PM EDT [facility] Lymphocytes %, CSF 84 % LAB HEMATOLOGY METHOD 12/06/2024 10:03 PM EDT [facility] Monocytes/Macro phages %, CSF 15 % LAB HEMATOLOGY METHOD 12/06/2024 10:03 PM EDT [facility] Eosinophils %, CSF 0 % LAB HEMATOLOGY METHOD 12/06/2024 10:03 PM EDT [facility] Basophils %, CSF 0 % LAB HEMATOLOGY METHOD 12/06/2024 10:03 PM EDT [facility] Neutrophils Absolute, CSF 0 uL LAB HEMATOLOGY METHOD 12/06/2024 10:03 PM EDT [facility] Lymphocytes Absolute, CSF 13 uL LAB HEMATOLOGY METHOD 12/06/2024 10:03 PM EDT [facility] Monocytes/Macro phages Absolute, CSF 2 uL LAB HEMATOLOGY METHOD 12/06/2024 10:03 PM EDT [facility] Eosinophils Absolute, CSF 0 uL LAB HEMATOLOGY METHOD 12/06/2024 10:03 PM EDT [facility] Basophils Absolute, CSF 0 uL LAB HEMATOLOGY METHOD 12/06/2024 10:03 PM EDT [facility] Comment, CSF None LAB HEMATOLOGY METHOD 12/06/2024 10:03 PM EDT [facility] Comment:This is an appended report. These results have been appended to a previously preliminary verified report. Cerebrospinal Fluid Lumbar puncture / Unknown Non-blood Collection / Unknown 12/06/2024 4:21 PM EDT 12/06/2024 6:34 PM EDT us Noemí Leigh MD LAB BODY FLUIDS AND STOOLS ORD ERABLES Final Result Performing Organization Address City/[facility]/ZIP Co de Phone Number [facility] [address] [place] [address] * Lactate Dehydrogenase Total, Body Fluid (SO) (12/06/2024 4:21 PM EDT) Only the most recent of2 resultswithin the time period is included. Lactate Dehydrogenase Total, Body Fluid 33 U/L 12/09/2024 12:02 PM EDT [facility] ([employer]) LDH Fluid Source CSF 12/10/19 12:02 PM EDT [facility] ([employer]) Cerebrospinal Fluid Non-blood Collection / Unknown 12/06/2024 4:21 PM EDT 12/06/2024 6:36 PM EDT Narrative [facility] ([facility]) - 12/09/2024 12:02 PM EDT INTERPRETIVE INFORMATION: Lactate Dehydrogenase Total, Body Fluid For information on body fluid reference ranges and/or interpretive guidance visit [email or web address]/bodyfluids/ This test was developed and its performance characteristics determined by [facility]. It has not been cleared or approved by the US Food and Drug Administration. This test was performed in a CLIA certified laboratory and is intended for clinical purposes. Performed By: [facility] [address] [place] [address] Telecine Operator: Manuel Mas MD, PhD CLIA Number: [id number] us Noemí Leigh MD LAB REF LAB BLOOD AND FLUID OR D Final Result Performing Organization Address City/[facility]/ZIP Co de Phone Number [facility] ([facility]) [address] [place] [address] * ENTEROVIRUS QUANTITATIVE PCR, CSF (SO) (12/06/2024 4:21 PM EDT) Pathologist [facility] ENTEROVIRUS PCR CSF Not Detected Not Detected copies/ml 12/08/2024 9:44 PM EDT [facility]) Comment: Assay Range: 83 copies/mL to 1.00E+08 [...] developed and its performance characteristics determined by [employer]. It has not been cleared or approved by the U.S. Food and Drug Administration. Results should be used in conjunction with clinical findings, and should not form the sole basis for a diagnosis or treatment decision. Testing Performed at: [facility] [address] [place] [address], [address] [place] [address] Alterations Manager: Anatoly Turk, PhD [facility] ([facility]) CLIA # [id number] FLAG Interpretation: A = Abnormal, H = High, L = Low Cerebrospinal Fluid Cerebrospinal fluid specimen / Unknown Non-blood Collection / Unknown 12/06/2024 4:21 PM EDT 12/06/2024 6:36 PM EDT Narrative [facility] FINK) - 12/08/2024 9:44 PM EDT Release to patient in [facility]->Immediate Noemí Leigh MD LAB BODY FLUIDS AND STOOLS ORD ERABLES Final Result [facility] F[facility]) * Varicella zoster DNA, quantitative (12/06/2024 4:21 PM EDT) Pathologist [facility] VZV qPCR CSF Not Detected Not Detected copies/mL 12/08/2024 9:06 PM EDT [facility]) Comment: Assay Range: 251 copies/mL to 1.00E+08 copies/mL The limit of quantitation (LOQ) is 251 copies/mL. VZV DNA detected below the LOQ will be reported as Detected:<251 copies/mL. This test was developed and its performance characteristics determined by [employer]. It has not been cleared or approved by the U.S. Food and Drug Administration. Results should be used in conjunction with clinical findings, and should not form the sole basis for a diagnosis or treatment decision. Testing Performed at: [facility] [address] [place] [address] Alterations Manager: Anatoly Turk PhD [facility] ([facility]) CLIA # [id number] FLAG Interpretation: A = Abnormal, H = High, L = Low Cerebrospinal Fluid Cerebrospinal fluid specimen / Unknown Non-blood Collection / Unknown 12/06/2024 4:21 PM EDT 12/06/2024 6:36 PM EDT Narrative [facility] Laiyaoyao) - 12/08/2024 9:06 PM EDT Release to patient in [facility]->Immediate Noemí Leigh MD LAB BODY FLUIDS AND STOOLS ORD ERABLES Final Result [facility]) * CMV DNA, Quantitative, PCR CSF (SO) (12/06/2024 4:21 PM EDT) CMV qPCR CSF Not Detected Not Detected IU/mL 12/08/2024 9:06 PM EDT [facility] FINK) Comment: Assay Range: 142 IU/mL to 1.88E+08 IU/mL The limit of quantitation (LOQ) is 142 IU/mL. CMV DNA detected below the LOQ will be reported as Detected:<142 IU/mL. This test was developed and its performance characteristics determined by [employer]. It has not been cleared or approved by the U.S. Food and Drug Administration. Results should be used in conjunction with clinical findings, and should not form the sole basis for a diagnosis or treatment decision. Testing Performed at: [facility] [address] [place] [address] Alterations Manager: Anatoly Turk, PhD [employer] ([facility]) CLIA # [id number] FLAG Interpretation: A = Abnormal, H = High, L = Low Cerebrospinal Fluid Cerebrospinal fluid specimen / Unknown Non-blood Collection / Unknown 12/06/2024 4:21 PM EDT 12/06/2024 6:36 PM EDT Narrative [facility] FINK) - 12/08/2024 9:06 PM EDT Release to patient in [facility]->Immediate us Noemí Leigh MD LAB BODY FLUIDS AND STOOLS ORD ERABLES Final Result [facility] FINK) * West Nile virus, CSF (12/06/2024 4:21 PM EDT) Only the most recent of2 resultswithin the time period is included. WEST NILE VIRUS AB,IGG,CSF 0.07 <=1.29 IV 12/09/2024 5:05 AM EDT [facility] ([employer]) WEST NILE VIRUS AB,IGM,CSF 0.01 <=0.89 IV 12/09/2024 5:05 AM EDT [facility] ([facility]) Cerebrospinal Fluid Cerebrospinal fluid specimen / Unknown Non-blood Collection / Unknown 12/06/2024 4:21 PM EDT 12/06/2024 6:36 PM EDT Narrative [facility] ([facility]) - 12/09/2024 5:05 AM EDT [...] members of the Flaviviridae family, such as [place] encephalitis virus, show extensive cross-reactivity with West [...] developed and its performance characteristics determined by [employer]. It has not been cleared or approved [...] members of the Flaviviridae family, such as [place] encephalitis virus, show extensive cross-reactivity with West [...] developed and its performance characteristics determined by [employer]. It has not been cleared or approved by the US Food and Drug Administration. This test was performed in a CLIA certified laboratory and is intended for clinical purposes. Performed By: [facility] [address] [place] [address] Telecine Operator: Manuel Mas MD, PhD CLIA Number: [id number] us Noemí Leigh MD LAB BLOOD ORDERABLES Final Res ult [facility] (AL[facility]) [address] [place] [address] * (ABNORMAL) Protein, CSF (12/06/2024 4:21 PM EDT) Only the most recent of2 resultswithin the time period is included. Total Protein, CSF 82(H) 15 - 45 mg/dL 12/06/2024 9:49 PM EDT [facility] Cerebrospinal Fluid Lumbar puncture / Unknown Non-blood Collection / Unknown 12/06/2024 4:21 PM EDT 12/06/2024 6:36 PM EDT [facility] - 12/06/2024 9:49 PM EDT Blood, when present in CSF, invalidates protein. Interpret results in the context of the patient's condition and other laboratory results. Noemí Leigh MD LAB BODY FLUIDS AND STOOLS ORD ERABLES Final Result Performing Organization Address [facility] [place] [address] * (ABNORMAL) Glucose, CSF (12/06/2024 4:21 PM EDT) Only the most recent of2 resultswithin the time period is included. [facility] Glucose, CSF 86(H) 41 - 70 mg/dL 12/06/2024 9:49 PM EDT [facility] Cerebrospinal Fluid Lumbar puncture / Unknown Non-blood Collection / Unknown 12/06/2024 4:21 PM EDT 12/06/2024 6:36 PM EDT [facility] - 12/06/2024 9:49 PM EDT CSF glucose values should be approximately 60 % of the plasma values and must always be compared with concurrently measured plasma values for adequate clinical interpretation. No reference ranges have been established for pediatric patients. us Noemí Leigh MD LAB BODY FLUIDS AND STOOLS ORD ERABLES Final Result Performing Organization Address City/[facility] Co de Phone Number [facility] [address] [place] [address] * Non-Gynecologic Cytology (12/06/2024 4:21 PM EDT) Only the most recent of2 resultswithin the time period is included. Pathologist [facility] Case Report Cytology Case: [id number] Authorizing Provider: Bernice Eckert MD Collected: 12/06/2024 1621 Ordering Location: [facility] Inpatient Received: 12/07/2024 0842 Pathologist: Veronique Salas MD Specimen: Lumbar Puncture, CEREBROSPINAL FLUID 12/07/2024 5:19 PM EDT [facility] Final Diagnosis A. CEREBROSPINAL FLUID - NO EVIDENCE OF MALIGNANCY - CHRONIC INFLAMMATORY CELLS WITH PREDOMINANTLY LYMPHOCYTES 12/07/2024 5:19 PM EDT [facility] at 1719 EDT Clinical History angela, fever 12/07/2024 5:19 PM EDT [facility] Previous Cancer Yes 12/07/2024 5:19 PM EDT [facility] Previous Cancer Primary Site Lung Cancer 12/07/2024 5:19 PM EDT [facility] Gross Description A. CEREBROSPINAL FLUID 2 ml's of clear fluid in tube #1, 0.4 ml's of clear fluid in tube #2, 0.5 ml's of clear fluid in tube #3 and 0.1 ml's of clear fluid in tube #4 all for thinprep 12/07/2024 5:19 PM EDT [facility] Cerebrospinal Fluid Lumbar puncture / Unknown Non-blood Collection / Unknown 12/06/2024 4:21 PM EDT 12/07/2024 8:42 AM EDT us Bernice Eckert MD LAB CYTOLOGY ORDERABLES Final R esult [facility] [address] [place] [address] * (ABNORMAL) Vancomycin, Peak, Plasma (12/05/2024 12:14 PM EDT) Only the most recent of2 resultswithin the time period is included. Pathologist [facility] Vancomycin, Peak, Plasma 49.6(H) 20.0 - 40.0 ug/mL 12/05/2024 1:06 PM EDT [facility] Blood Venous blood specimen / Unknown Venipuncture / Unknown 12/05/2024 12:14 PM EDT 12/05/2024 12:37 PM EDT Narrative [facility] - 12/05/2024 1:06 PM EDT Therapeutic Peak level: 20-40ug/mL Supra-therapeutic Peak level: >40 ug/mL us Noemí Leigh MD LAB BLOOD ORDERABLES Final Res ult Performing Organization Address City/[facility]/ZIP Co de Phone Number [facility] [address] [place] [address] * Lactate, venous (12/03/2024 12:30 AM EDT) Only the most recent of4 resultswithin the time period is included. Lactate, Venous, Whole Blood 0.7 0.5 - 2.2 mmol/L LAB HEMATOLOGY METHOD 12/03/2024 12:45 AM EDT [facility] Blood Venous blood specimen / Unknown Venipuncture / Unknown 12/03/2024 12:30 AM EDT 12/03/2024 12:43 AM EDT us Yolande Rosas MD LAB BLOOD ORDERABLES Final Resu lt Performing Organization Address [facility] Co de Phone Number [address] [address] * MR Head w and wo IV Contrast (12/02/2024 12:30 AM EDT) Only the most recent of2 [...] AM EDT CLINICAL INDICATION: Neuro deficit, persistent/recurrent, REGRINDER 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 Scattered [id number] of the mastoid air cells. Orbits: No [...] IMG MRI PROCEDURES Final Resul t * EEG (12/01/2024 12:59 PM EDT) Anatomical [...] otherwise specified) in a 10/20 system with [employer] software and hardware. Additional electrodes: none FT9/FT10: [...] for characterization of spells. Shawna Juárez MD [facility] [phone] [1] No current facility-administered medications for this [...] DS 800-160 MG tablet every 12 hours. Kksagoy-Lhmckayxiuy-Fdcxhrcrxu (Breztri Aerosphere) 160-9-4.8 MCG/ACT aerosol Inhale 2 [...] 399=12units max of 36units daily nystatin (Mycostatin) 838566 UNIT/GM powder Apply on bottom 2 times [...] 650 mg 650 mg Oral q6h PRN Gustavo Johnson APRN, DNP 650 mg at 11/30/24 2133 calcium carbonate (Tums) chewable tablet 500 mg 500 mg Oral 4x daily PRN Gustavo Johnson APRN, DNP calcium-vitamin D 500-200 MG-UNIT per tablet 1 tablet 1 tablet Oral Daily Gustavo Johnson APRN, DNP 1 tablet at 12/01/24 0900 cetirizine (ZyrTEC) tablet 5 mg 5 mg Oral Daily Gustavo Johnson APRN, DNP 5 mg at 12/01/24 0857 cyanocobalamin (Vitamin B-12) tablet 1,000 mcg 1,000 mcg Oral Daily Gustavo Johnson APRN, DNP 1,000 mcg at 12/01/24 0857 glucose (Glutose) 40 % oral gel 15-30 grams of glucose 15-30 grams of glucose Sublingual q15 min PRN Gustavo Johnson APRN, DNP Or dextrose 10 % (D10W) bolus 125 mL 125 mL Intravenous q15 min PRN Gustavo Johnson APRN, DNP Or dextrose 10 % (D10W) bolus 250 mL 250 mL Intravenous q15 min PRN Gustavo Johnson APRN, DNP Or glucagon (human recombinant) injection 1 mg 1 mg Intramuscular q15 min PRN Gustavo Johnson APRN, DNP ferrous sulfate EC tablet 324 mg 324 mg Oral Daily with breakfast Gustavo Johnson APRN, DNP 324 mg at 12/01/24 0857 FLUoxetine (PROzac) capsule 40 mg 40 mg Oral Daily Gustavo Johnson APRN, DNP 40 mg at 12/01/24 08 gabapentin (Neurontin) capsule 100 mg 100 mg Oral 4x daily Noemí Leigh MD 100 mg at 12/01/24 0857 hydrOXYzine HCl (Atarax) tablet 25 mg 25 mg Oral TID PRN Gustavo Johnson APRN, DNP insulin lispro (Admelog) 100 units/mL injection - Correction - Standard Dose 0-5 Units Subcutaneous TID with meals Gustavo Johnson APRN, DNP 1 Units at 12/01/24 1205 insulin lispro (Admelog) injection - Correction - Nighttime Dose 0-3 Units Subcutaneous Twice at night Gustavo Johnson APRN, DNP ipratropium-albuterol (Duo-Neb) 0.5-2.5 mg/3 mL nebulizer solution 3 mL 3 mL Nebulization q4h PRN Gustavo Johnson APRN, DNP levETIRAcetam (Keppra) tablet 500 mg 500 mg Oral BID Ulysses Nolasco DO 500 mg at 12/01/24 0857 magic butt balm (Cholestyramine) ointment 1 Application Topical q1h PRN Gustavo Johnson APRN, DNP magic mouthwash BLM (FIRST-Mouthwash) suspension 15 mL 15 mL Swish & Spit 4x daily PRN Gustavo Johnson APRN, DNP magnesium oxide (Mag-Ox) tablet 400 mg 400 mg Oral BID Gustavo Johnson APRN, DNP 400 mg at 12/01/24 0857 melatonin tablet 6 mg 6 mg Oral Nightly Gustavo Johnson APRN, DNP 6 mg at 11/30/24 2124 metoprolol tartrate (Lopressor) tablet 50 mg 50 mg Oral BID Gustavo Johnson APRN, DNP 50 mg at 12/01/24 0857 Tiotropium [place] Monohydrate (Spiriva Respimat) 2.5 MCG/ACT inhaler 2 puff 2 puff Inhalation Daily Gustavo Jonhson APRN, DNP 2 puff at 12/01/24 0900 And mometasone-formoterol (Dulera 200) 200-5 MCG/ACT inhaler 2 puff 2 puff Inhalation BID Gustavo Johnson APRN, DNP 2 puff at 12/01/24 0902 montelukast (Singulair) tablet 10 mg 10 mg Oral Nightly Gustavo Johnson APRN, DNP 10 mg at 11/30/24 2124 mupirocin (Bactroban) 2 % ointment 1 Application 1 Application Topical BID Gustavo Johnson APRN, DNP 1 Application at 12/01/24 0857 nystatin (Mycostatin) 203499 UNIT/GM powder Topical BID Gustavo Johnson APRN, DNP Given at 12/01/24 0900 pantoprazole (Protonix) EC tablet 40 mg 40 mg Oral Daily Gustavo Johnson APRN, DNP 40 mg at 12/01/24 0857 polyethylene glycol (Miralax) packet 17 g 17 g Oral BID PRN Gustavo Johnson APRN, DNP prochlorperazine (Compazine) tablet 10 mg 10 mg Oral q6h PRN Gustavo Johnson APRN, DNP [Held by provider] rivaroxaban (Xarelto) tablet 20 mg 20 mg Oral Daily with dinner Gustavo Johnson APRN, DNP sodium chloride 0.9 % flush 10 mL 10 mL Intravenous q12h Gustavo Johnson APRN, DNP 10 mL at 12/01/24 0900 And sodium chloride 0.9 % flush 10 mL 10 mL Intravenous PRN Gustavo Johnson APRN, DNP Noemí Leigh MD NEUROLOGY ORDERABLES Final Res ult * (ABNORMAL) Cystatin C (12/01/2024 5:02 AM EDT) Cystatin C 2.03(H) 0.61 - 0.95 mg/L 12/01/2024 8:31 AM EDT [facility] Blood Venous blood specimen / Unknown Venipuncture / Unknown 12/01/2024 5:02 AM EDT 12/01/2024 5:19 AM EDT Noemí Leigh MD LAB BLOOD ORDERABLES Final Res ult [facility] [address] [place] [address] * US Renal Complete (11/30/2024 12:47 PM [...] MD IMG US PROCEDURES Final Result * VAS US Venous Duplex Lower Extremity [...] Laura Meeks MD on 11/30/2024 9:44 AM Gustavo Johnson [employer], DNP CV VASCULAR PROCEDURES F inal Result * SARS CoV-2/COVID-19 by PCR (11/30/2024 2:09 AM EDT) SARS CoV-2/COVID-1 9 RNA PCR Result Not Detected Not Detected 11/30/2024 4:02 AM EDT [facility] Swab Nasopharyngeal structure / Unknown Non-blood Collection / Unknown 11/30/2024 2:09 AM EDT 11/30/2024 3:15 AM EDT Narrative [facility] - 11/30/2024 4:02 AM EDT This [...] clinical signs and symptoms consistent with COVID-19. Result [facility] Gustavo Johnson APRN, DNP LAB MICROBIOLOGY - GENER AL ORDERABLES Final Result Performing Organization Address [facility] de Phone Number [facility] [address] [place] [address] * (ABNORMAL) D Dimer (11/30/2024 2:09 AM EDT) D Dimer, Quantitative 8.98(H) <0.50 ug/mL FEU LAB COAGULATION METHOD 11/30/2024 3:05 AM EDT [facility] Blood Venous blood specimen / Unknown Venipuncture / Unknown 11/30/2024 2:09 AM EDT 11/30/2024 2:33 AM EDT Narrative [facility] - 11/30/2024 3:05 AM EDT Test [...] should be considered in the clinical context. Result [facility] Gustavo Johnson APRN, DNP LAB BLOOD ORDERABLES Fin al Result Performing Organization Address [facility] de Phone Number [facility] [address] [place] [address] * Creatine Kinase (CK), Total (11/30/2024 2:09 AM EDT) Creatine Kinase, Plasma 55 37 - 168 U/L 11/30/2024 10:21 AM EDT [facility] Blood Venous blood specimen / Unknown Venipuncture / Unknown 11/30/2024 2:09 AM EDT 11/30/2024 2:33 AM EDT Result [facility] Noemí Leigh MD LAB BLOOD ORDERABLES Final Res ult Performing Organization Address [facility] Co de Phone Number [facility] [address] [place] [address] * Urea Nitrogen, Random Urine (11/29/2024 11:17 PM EDT) Urea Nitrogen, Urine 87 mg/dL 11/30/2024 1:00 AM EDT [facility] Urine Urine specimen obtained by clean catch procedure / Unknown Non-blood Collection / Unknown 11/29/2024 11:17 PM EDT 11/29/2024 11:39 PM EDT us Nilson Jimenez MD LAB URINE ORDERABLES Final Resul t Performing Organization Address [facility] Phone Number [facility] [address] [place] [address] * Sodium, Random, Urine (11/29/2024 11:17 PM EDT) Only the most recent of2 resultswithin the time period is included. Sodium, Urine 85 mmol/L 11/30/2024 12:58 AM EDT [facility] Urine Urine specimen obtained by clean catch procedure / Unknown Non-blood Collection / Unknown 11/29/2024 11:17 PM EDT 11/29/2024 11:39 PM EDT us Nilson Jimenez MD LAB URINE ORDERABLES Final Resul t Performing Organization Address [facility] Co de Phone Number [facility] [address] [place] [address] * Creatinine, Random, Urine (11/29/2024 11:17 PM EDT) Creatinine, Urine 24 mg/dL 11/30/2024 12:58 AM EDT [facility] Urine Urine specimen obtained by clean catch procedure / Unknown Non-blood Collection / Unknown 11/29/2024 11:17 PM EDT 11/29/2024 11:39 PM EDT us Nilson Jimenez MD LAB URINE ORDERABLES Final Resul t [facility] [address] [place] [address] * Urinalysis with reflex microscopic (Culture NOT Included) (11/29/2024 11:17 PM EDT) Only the most recent of5 resultswithin the time period is included. Color, Urine Yellow LAB URINALYSIS - AUTOMATED METHOD 11/29/2024 11:33 PM EDT [facility] Clarity, Urine Clear LAB URINALYSIS - AUTOMATED METHOD 11/29/2024 11:33 PM EDT [facility] Spec [place], Urine 1.007 1.005 - 1.030 LAB URINALYSIS - AUTOMATED METHOD 11/29/2024 11:33 PM EDT [facility] pH, Urine 6.5 5.0 - 8.0 LAB URINALYSIS - AUTOMATED METHOD 11/29/2024 11:33 PM EDT [facility] Protein, Urine Negative Negative mg/dL LAB URINALYSIS - AUTOMATED METHOD 11/29/2024 11:33 PM EDT [facility] Glucose, Urine Negative Negative mg/dL LAB URINALYSIS - AUTOMATED METHOD 11/29/2024 11:33 PM EDT [facility] Ketones, Urine Negative Negative mg/dL LAB URINALYSIS - AUTOMATED METHOD 11/29/2024 11:33 PM EDT [facility] Blood, Urine Negative Negative LAB URINALYSIS - AUTOMATED METHOD 11/29/2024 11:33 PM EDT [facility] Bilirubin, Urine Negative Negative LAB URINALYSIS - AUTOMATED METHOD 11/29/2024 11:33 PM EDT [facility] Urobilinogen, Urine 0.2 0.2 to 1.0 mg/dL LAB URINALYSIS - AUTOMATED METHOD 11/29/2024 11:33 PM EDT [facility] Leukocytes, Urine Negative Negative LAB URINALYSIS - AUTOMATED METHOD 11/29/2024 11:33 PM EDT [facility] Nitrite, Urine Negative Negative LAB URINALYSIS - AUTOMATED METHOD 11/29/2024 11:33 PM EDT [facility] Urine Urine specimen obtained by clean catch procedure / Unknown Non-blood Collection / Unknown 11/29/2024 11:17 PM EDT 11/29/2024 11:30 PM EDT us Nilson Jimenez MD LAB URINE ORDERABLES Final Resul t [facility] [address] [place] [address] * (ABNORMAL) Comprehensive Urine Drug Screening, Qualitative Assay, >= 27 Drug Classes (59:34 PM EDT) Acetaminophen Negative Negative 12/01/2024 1:33 PM EDT [facility] Alprazolam Negative Negative 12/01/2024 1:33 PM EDT [facility] Amantadine Negative Negative 12/01/2024 1:33 PM EDT [facility] Amitriptyline Negative Negative 12/01/2024 1:33 PM EDT [facility] Amphetamine Negative Negative 12/01/2024 1:33 PM EDT [facility] Atenolol Negative Negative 12/01/2024 1:33 PM EDT [facility] Benzoylecgonine Negative Negative 1:33 PM EDT [facility] Bisoprolol Negative Negative 12/01/2024 1:33 PM EDT [facility] Bupropion Negative Negative 12/01/2024 1:33 PM EDT [facility] Butalbital Negative Negative 12/01/2024 1:33 PM EDT [facility] Carbamazepine Negative Negative 12/01/2024 1:33 PM EDT [facility] Carisoprodol Negative Negative 12/01/2024 1:33 PM EDT [facility] Chlorpheniramine Negative Negative 12/02/19 1:33 PM EDT [facility] Citalopram Negative Negative 12/01/2024 1:33 PM EDT [facility] Clindamycin Negative Negative 12/01/2024 1:33 PM EDT [facility] Clonidine Negative Negative 12/01/2024 1:33 PM EDT [facility] Clopidogrel / Ticlopidine Negative Negative 12/01/2024 1:33 PM EDT [facility] Cocaethylene Negative Negative 12/01/2024 1:33 PM EDT [facility] Cocaine Negative Negative 12/01/2024 1:33 PM EDT [facility] Codeine Negative Negative 12/01/2024 1:33 PM EDT [facility] Cyclobenzaprine Negative Negative 1:33 PM EDT [facility] Desvenlafaxine Negative Negative 12/01/2024 1:33 PM EDT [facility] Dextromethorphan Negative Negative 12/02/19 1:33 PM EDT [facility] Diazepam Negative Negative 12/01/2024 1:33 PM EDT [facility] Diltiazem Negative Negative 12/01/2024 1:33 PM EDT [facility] Diphenhydramine Negative Negative 1:33 PM EDT [facility] Doxepine Negative Negative 12/01/2024 1:33 PM EDT [facility] Doxylamine Negative Negative 12/01/2024 1:33 PM EDT [facility] EDDP-Methadone metabolite Negative Negative 12/01/2024 1:33 PM EDT [facility] Fentanyl Negative Negative 12/01/2024 1:33 PM EDT [facility] Fluconazole Positive(A) Negative 12/01/2024 1:33 PM EDT [facility] Fluoxetine Negative Negative 12/01/2024 1:33 PM EDT [facility] Guaifenesin Negative Negative 12/01/2024 1:33 PM EDT [facility] Haloperidol Negative Negative 12/01/2024 1:33 PM EDT [facility] Heroin/6-PINKY Negative Negative 12/01/2024 1:33 PM EDT [facility] Hydrocodone Negative Negative 12/01/2024 1:33 PM EDT [facility] Hydroxyzine / Cetirizine metabolite Negative Negative 12/01/2024 1:33 PM EDT [facility] Ibuprofen Negative Negative 12/01/2024 1:33 PM EDT [facility] Imipramine Negative Negative 12/01/2024 1:33 PM EDT [facility] Ketamine Negative Negative 12/01/2024 1:33 PM EDT [facility] Labetolol Negative Negative 12/01/2024 1:33 PM EDT [facility] Lamotrigine Negative Negative 12/01/2024 1:33 PM EDT [facility] Levetiracetam Negative Negative 12/01/2024 1:33 PM EDT [facility] Lidocaine Negative Negative 12/01/2024 1:33 PM EDT [facility] MDA Negative Negative 12/01/2024 1:33 PM EDT [facility] MDMA Negative Negative 12/01/2024 1:33 PM EDT [facility] Memantine Negative Negative 12/01/2024 1:33 PM EDT [facility] Meperidine Negative Negative 12/01/2024 1:33 PM EDT [facility] Meprobamate Negative Negative 12/01/2024 1:33 PM EDT [facility] Metaxalone Negative Negative 12/01/2024 1:33 PM EDT [facility] Methamphetamine Negative Negative 1:33 PM EDT [facility] Methocarbamol Negative Negative 12/01/2024 1:33 PM EDT [facility] Methylecgonine Negative Negative 12/01/2024 1:33 PM EDT [facility] Metoclopramide Negative Negative 12/01/2024 1:33 PM EDT [facility] Metoprolol Negative Negative 12/01/2024 1:33 PM EDT [facility] Metronidazole Negative Negative 12/01/2024 1:33 PM EDT [facility] Midazolam Negative Negative 12/01/2024 1:33 PM EDT [facility] Midazolam Metabolite Negative Negative 12/01/2024 1:33 PM EDT [facility] Mirtazapine Negative Negative 12/01/2024 1:33 PM EDT [facility] Misc Test Result Positive(A) Negative 025 1:33 PM EDT [facility] Comment:Gabapentin: positive Naproxen Negative Negative 12/01/2024 1:33 PM EDT [facility] Nefazodone Negative Negative 12/01/2024 1:33 PM EDT [facility] Norfentanyl Negative Negative 12/01/2024 1:33 PM EDT [facility] Nortriptyline Negative Negative 12/01/2024 1:33 PM EDT [facility] Ordanstron Negative Negative 12/01/2024 1:33 PM EDT [facility] Oxcarbazepine Negative Negative 12/01/2024 1:33 PM EDT [facility] Oxycodone Negative Negative 12/01/2024 1:33 PM EDT [facility] Paroxethine Negative Negative 12/01/2024 1:33 PM EDT [facility] Phenobarbital Negative Negative 12/01/2024 1:33 PM EDT [facility] Phentermine Negative Negative 12/01/2024 1:33 PM EDT [facility] Phenytoin Negative Negative 12/01/2024 1:33 PM EDT [facility] Primidone Negative Negative 12/01/2024 1:33 PM EDT [facility] Promethazine Negative Negative 12/01/2024 1:33 PM EDT [facility] Propofol Negative Negative 12/01/2024 1:33 PM EDT [facility] Propranolol Negative Negative 12/01/2024 1:33 PM EDT [facility] Quetiapine Negative Negative 12/01/2024 1:33 PM EDT [facility] Quinine Negative Negative 12/01/2024 1:33 PM EDT [facility] Rantidine Negative Negative 12/01/2024 1:33 PM EDT [facility] Sertraline Negative Negative 12/01/2024 1:33 PM EDT [facility] Spironolactone Negative Negative 12/01/2024 1:33 PM EDT [facility] Tizanidine Negative Negative 12/01/2024 1:33 PM EDT [facility] Topiramate Negative Negative 12/01/2024 1:33 PM EDT [facility] Tramadol Negative Negative 12/01/2024 1:33 PM EDT [facility] Trazadone/ Trazadone metabolite Negative Negative 12/01/2024 1:33 PM EDT [facility] Trimethoprim Positive(A) Negative 12/01/2024 1:33 PM EDT [facility] Valproic Acid Negative Negative 12/01/2024 1:33 PM EDT [facility] Venlafaxine Negative Negative 12/01/2024 1:33 PM EDT [facility] Verapamil Negative Negative 12/01/2024 1:33 PM EDT [facility] Zolpidem Negative Negative 12/01/2024 1:33 PM EDT [facility] Xylazine Negative Negative 12/01/2024 1:33 PM EDT [facility] Urine Urine specimen obtained by clean catch procedure / Unknown Non-blood Collection / Unknown 11/29/2024 9:34 PM EDT 11/29/2024 9:53 PM EDT us Nisha Choudhury LAB URINE ORDERABLES Final Resul t [facility] [address] [place] [address] * Urine Meek Panel (11/29/2024 7:58 PM EDT) Only the most recent of3 resultswithin the time period is included. Extra Reflex urine culture not indicated 11/30/2024 5:01 AM EDT [facility] Comment: Previously prelim verified as [...] Choudhury LAB URINE ORDERABLES Final Resul t [facility] [address] [place] [address] * CT Head wo IV Contrast (11/29/2024 7:42 PM EDT) Only the most recent of3 [...] Abhilash Castorena MD on 11/29/2024 8:45 PM Nisha Choudhury IM CT PROCEDURES Final Result * (ABNORMAL) Iron & Total Iron Binding Capacity, Plasma (Includes Transferrin) (11/19/2024 12:51 AM EDT) Iron, Plasma 67 30 - 160 ug/dL 11/19/2024 4:08 AM EDT [facility] Transferrin, Plasma 182(L) 200 - 360 mg/dL 11/19/2024 4:08 AM EDT [facility] Total Iron Binding Capacity, Plasma 228(L) 240 - 450 ug/mL 11/19/2024 4:08 AM EDT [facility] Transferrin Saturation 29 14 - 50 % 11/19/2024 4:08 AM EDT [facility] Blood Venous blood specimen / Unknown Venipuncture / Unknown 11/19/2024 12:51 AM EDT 11/19/2024 12:53 AM EDT us Regina Ivey MD LAB BLOOD ORDERABLES Final Resu lt [facility] [address] [place] [address] * CT MSK OUTSIDE IMAGES (11/18/2024 8:50 [...] Davin Mcdonough MD on 11/16/2024 8:47 AM us Torrie RAMOS IMG XR PROCEDURES Final Resul t * Urinalysis Microscopic Examination (11/16/2024 1:14 AM EDT) Urine Urine specimen obtained by clean catch procedure / Unknown Non-blood Collection / Unknown 11/16/2024 1:14 AM EDT 11/16/2024 1:21 AM EDT Ashu Ortiz MD LAB URINE ORDERABLES Final Result [facility] [address] [place] [address] * Drug Abuse Screen, Urine (11/16/2024 1:14 AM EDT) Amphetamine Screen Urine Negative Cutoff: 500 ng/mL 11/16/2024 1:42 AM EDT [facility] Benzodiazepines Screen Urine Negative Cutoff: 200 ng/mL 11/16/2024 1:42 AM EDT [facility] Cannabinoid Screen Urine Negative Cutoff: 50 ng/mL 11/16/2024 1:42 AM EDT [facility] Cocaine Screen Urine Negative Cutoff: 300 ng/mL 11/16/2024 1:42 AM EDT [facility] Barbiturate Screen Urine Negative Cutoff: 200 ng/mL 11/16/2024 1:42 AM EDT [facility] Opiate Screen Urine Negative Cutoff: 300 ng/mL 11/16/2024 1:42 AM EDT [facility] Methadone Screen Urine Negative Cutoff: 300 ng/mL 11/16/2024 1:42 AM EDT [facility] Buprenorphine Screen Urine Negative Cutoff: 10 ng/mL 11/16/2024 1:42 AM EDT [facility] Fentanyl Screen Urine Negative Cutoff: 1 ng/mL 11/16/2024 1:42 AM EDT [facility] Oxycodone Screen Urine Negative Cutoff: 100 ng/mL 11/16/2024 1:42 AM EDT [facility] Urine Urine specimen obtained by clean catch procedure / Unknown Non-blood Collection / Unknown 11/16/2024 1:14 AM EDT 11/16/2024 1:21 AM EDT us Ashu Ortiz MD LAB URINE ORDERABLES Final Result [facility] [address] [place] [address] * CT Venogram Head (11/15/2024 9:21 PM [...] Total DLP (Dose-Length Product): 1926.17 mGy.cm (accession [id number]), 1926.17 mGy.cm (accession [id number]). Please note: The reported value represents the [...] Total DLP (Dose-Length Product): 1926.17 mGy.cm (accession [id number]),1926.17 mGy.cm (accession [id number]). Please note: The reported valuerepresents the total [...] LAB HEMATOLOGY METHOD 11/15/2024 8:21 PM EDT [facility] Bicarbonate, Calculated, Venous 29(H) 22 - 26 mmol/L LAB HEMATOLOGY METHOD 11/15/2024 8:21 PM EDT [facility] Base Excess, Venous 3.2(H) -2.0 - 3.0 mmol/L LAB HEMATOLOGY METHOD 11/15/2024 8:21 PM EDT [facility] Lactate, Venous, Whole Blood 1.8 0.5 - 2.2 mmol/L LAB HEMATOLOGY METHOD 11/15/2024 8:21 PM EDT [facility] Blood Venous blood specimen / Unknown Venipuncture / Unknown 11/15/2024 8:06 PM EDT 11/15/2024 8:20 PM EDT Ashu Ortiz MD LAB BLOOD ORDERABLES Final Result [facility] [address] [place] [address] * Ethyl Alcohol Plasma (11/15/2024 6:51 PM EDT) Ethanol Plasma <10 <10 mg/dL 11/15/2024 7:19 PM EDT [facility] Blood Venous blood specimen / Unknown Venipuncture / Unknown 11/15/2024 6:51 PM EDT 11/15/2024 6:56 PM EDT Narrative [facility] - 11/15/2024 7:19 PM EDT Enzymatic Assay: Performed on Nayeli Linnette. Ashu Ortiz MD LAB BLOOD ORDERABLES Final Result [facility] [address] [place] [address] * Test Qualitative Plasma (11/15/2024 6:51 PM EDT) Test Negative Negative 11/15/2024 7:47 PM EDT [facility] Blood Venous blood specimen / Unknown Venipuncture / Unknown 11/15/2024 6:51 PM EDT 11/15/2024 6:56 PM EDT Narrative [facility] - 11/15/2024 7:47 PM EDT Reference Range: Males and non- females: Negative. Ashu Ortiz MD LAB BLOOD ORDERABLES Final Result [facility] [address] [place] [address] * Gold Top (11/15/2024 6:41 PM EDT) Extra Hold for add-ons 11/15/2024 9:01 PM EDT [facility] Comment:Auto resulted. Blood Venous blood specimen / Unknown 11/15/2024 6:41 PM EDT 11/15/2024 6:56 PM EDT Ashu Ortiz MD LAB BLOOD [place] [address] * XR OUTSIDE IMAGES (11/15/2024 2:42 PM EDT) Anatomical Region Laterality Modality Radiographic Carolyne ging 11/15/2024 2:42 PM EDT us Regina Katz APRN IMG XR PROCEDURES Final Res ult * XR MSK OUTSIDE IMAGES (11/15/2024 2:42 PM EDT) Only the most recent of3 resultswithin the time period is included. Anatomical Region Laterality Modality Radiographic Carolyne ging 11/15/2024 2:42 PM EDT us Regina Katz APRN IMG XR PROCEDURES Final Res ult * CT NEURO OUTSIDE IMAGES (11/15/2024 2:38 PM EDT) Anatomical Region Laterality Modality Computed Tomogra phy 11/15/2024 2:38 PM EDT Regina Katz [employer] IMG CT PROCEDURES Final Res ult * [...] RADIATION ONCOLOGY 11/07/2024 12:4 0 PM EDT us Physician Radiation Oncology RADIATION ONCJOSELITO GY ORDERABLES [...] RADIATION ONCOLOGY 11/04/2024 11:0 2 AM EDT us Physician Radiation Oncology RADIATION ONCJOSELITO GY ORDERABLES [...] 6 AM EDT Physician Radiation Oncology RADIATION ONCJOSELITO [...] 10/31/2024 8:41 AM EDT Physician Radiation Oncology MD RADIATION ONCOLO GY ORDERABLES Final Result [facility]COLOG[facility] * (ABNORMAL) Morphology (10/31/2024 12:21 AM EDT) Only the most recent of4 resultswithin the time period is included. RBC Fragments/Schist ocytes Slight(A) (none) LAB HEMATOLOGY METHOD 10/31/2024 2:12 AM EDT [facility] Polychromasia Slight LAB HEMATOLOGY METHOD 10/31/2024 2:12 AM EDT [facility] RBC Morphology Slide Reviewed LAB HEMATOLOGY METHOD 10/31/2024 2:12 AM EDT [facility] Teardrop Cells Present LAB HEMATOLOGY METHOD 10/31/2024 2:12 AM EDT [facility] Platelet Estimate Platelet smear estimate consistent with automated count LAB HEMATOLOGY METHOD 10/31/2024 2:12 AM EDT [facility] Blood Venous blood specimen / Unknown Venipuncture / Unknown 10/31/2024 12:21 AM EDT 10/31/2024 12:55 AM EDT us Robert Amin MD LAB BLOOD ORDERABLES Final Res ult [facility] [address] [place] [address] * (ABNORMAL) Manual Differential (10/31/2024 12:21 AM EDT) Only the most recent of4 resultswithin the time period is included. Blasts % 0 % LAB HEMATOLOGY METHOD 10/31/2024 2:12 AM EDT [facility] Promyelocytes % 0 % LAB HEMATOLOGY METHOD 10/31/2024 2:12 AM EDT [facility] Myelocytes % 3 % LAB HEMATOLOGY METHOD 10/31/2024 2:12 AM EDT [facility] Metamyelocytes % 3 % LAB HEMATOLOGY METHOD 10/31/2024 2:12 AM EDT [facility] Neutrophils % 84 % LAB HEMATOLOGY METHOD 10/31/2024 2:12 AM EDT [facility] Lymphocytes % 6 % LAB HEMATOLOGY METHOD 10/31/2024 2:12 AM EDT [facility] Reactive Lymphocytes % 0 % LAB HEMATOLOGY METHOD 10/31/2024 2:12 AM EDT [facility] Monocytes % 3 % LAB HEMATOLOGY METHOD 10/31/2024 2:12 AM EDT [facility] Eosinophils % 1 % LAB HEMATOLOGY METHOD 10/31/2024 2:12 AM EDT [facility] Basophils % 0 % LAB HEMATOLOGY METHOD 10/31/2024 2:12 AM EDT [facility] Blasts Absolute 0.00 10*3/UL LAB HEMATOLOGY METHOD 10/31/2024 2:12 AM EDT [facility] Promyelocytes Absolute 0.00 10*3/uL LAB HEMATOLOGY METHOD 10/31/2024 2:12 AM EDT [facility] Myelocytes Absolute 0.20 10*3/uL LAB HEMATOLOGY METHOD 10/31/2024 2:12 AM EDT [facility] Metamyelocytes Absolute 0.20 10*3/uL LAB HEMATOLOGY METHOD 10/31/2024 2:12 AM EDT [facility] Neutrophils Absolute 5.62 1.60 - 6.10 10*3/uL LAB HEMATOLOGY METHOD 10/31/2024 2:12 AM EDT [facility] Lymphocytes Absolute 0.40(L) 1.20 - 3.90 10*3/uL LAB HEMATOLOGY METHOD 10/31/2024 2:12 AM EDT [facility] Reactive Lymphocytes Absolute 0.00 10*3/uL LAB HEMATOLOGY METHOD 10/31/2024 2:12 AM EDT [facility] Monocytes Absolute 0.20(L) 0.30 - 0.90 10*3/uL LAB HEMATOLOGY METHOD 10/31/2024 2:12 AM EDT [facility] Eosinophils Absolute 0.07 0.00 - 0.50 10*3/uL LAB HEMATOLOGY METHOD 10/31/2024 2:12 AM EDT [facility] Basophils Absolute 0.00 0.00 - 0.10 10*3/uL LAB HEMATOLOGY METHOD 10/31/2024 2:12 AM EDT [facility] Blood Venous blood specimen / Unknown Venipuncture / Unknown 10/31/2024 12:21 AM EDT 10/31/2024 12:55 AM EDT us Robert Amin MD LAB BLOOD ORDERABLES Final Res ult [facility] [address] [place] [address] * Rad Onc Aria Session Summary (10/28/2024 [...] 1:15 PM EDT Physician Radiation Oncology RADIATION ONCJOSELITO GY ORDERABLES Final Result [facility] * Rad Onc Aria Session Summary (10/25/2024 [...] 2:01 PM EDT Physician Radiation Oncology RADIATION ONCJOSELITO GY ORDERABLES Final Result [facility] RADIATION ONCOLOGY * [facility] ED POCUS PROCDOC (10/25/2024 9:51 AM EDT) [...] IN CLINIC/BEDSIDE ORDER SOLOMON Final Result * [facility] ED POCUS PROCDOC (10/25/2024 9:51 AM [...] Aria Session Summary (10/24/2024 12:06 PM EDT) Pathologist [facility] Course ID C1 [facility] RADIATION ONCOLOGY Course [...] of2 resultswithin the time period is included. [facility] Vancomycin, Trough, Plasma 5.8(L) 10.0 - 20.0 ug/mL 10/16/2024 6:34 AM EDT [facility] Blood Venous blood specimen / Unknown Venipuncture / Unknown 10/16/2024 5:49 AM EDT 10/16/2024 6:04 AM EDT Narrative [facility] - 10/16/2024 6:34 AM EDT Therapeutic Trough level: 10-20ug/mL Supra-therapeutic Trough level: >20 ug/mL Unknown Claudia Dolkar MD LAB BLOOD ORDERABLES F inal Result [facility] [address] [place] [address] * Meningitis/Encephalitis Panel by PCR (10/14/2024 10:24 AM EDT) Escherichia coli K1 PCR Result Not Detected Not Detected 10/14/2024 3:51 PM EDT [facility] Haemophilus influenzae PCR Result Not Detected Not Detected 10/14/2024 3:51 PM EDT [facility] Listeria monocytogenes PCR Result Not Detected Not Detected 10/14/2024 3:51 PM EDT [facility] Neisseria meningitidis PCR Result Not Detected Not Detected 10/14/2024 3:51 PM EDT [facility] Streptococcus agalactiae PCR Result Not Detected Not Detected 10/14/2024 3:51 PM EDT [facility] Streptococcus pneumoniae PCR Result Not Detected Not Detected 10/14/2024 3:51 PM EDT [facility] Cytomegalovirus (CMV) PCR Result Not Detected Not Detected 10/14/2024 3:51 PM EDT [facility] Enterovirus (EV) PCR Result Not Detected Not Detected 10/14/2024 3:51 PM EDT [facility] Herpes Simplex Virus 1 (HSV-1) PCR Result Not Detected Not Detected 10/14/2024 3:51 PM EDT [facility] Herpes Simplex Virus 2 (HSV-2) PCR Result Not Detected Not Detected 10/14/2024 3:51 PM EDT [facility] Human Herpes Virus 6 (HHV-6) PCR Result Not Detected Presumptive Negative 10/14/2024 3:51 PM EDT [facility] Human Parechovirus (HPeC) PCR Result Not Detected Not Detected 10/14/2024 3:51 PM EDT [facility] Varicella Zoster Virus (VZV) PCR Result Not Detected Not Detected 10/14/2024 3:51 PM EDT [facility] Cryptococcus neoformans/gattii PCR Result Not Detected Not Detected 10/14/2024 3:51 PM EDT [facility] Cerebrospinal Fluid Lumbar puncture / Unknown Non-blood Collection / Unknown 10/14/2024 10:24 AM EDT 10/14/2024 10:55 AM EDT Narrative [facility] - 10/14/2024 3:51 PM EDT [...] MICROBIOLOGY - GENERAL ORD ERABLES Final Result [facility] [address] [place] [address] * MADINA ALMANZA DNA BY PCR(CSF) (SO) (10/14/2024 10:24 AM EDT) Madina Almanza PCR CSF Not Detected Not Detected IU/mL 10/15/2024 8:27 PM EDT [facility]) Comment: Assay Range: 52 IU/mL to 1.69E+08 IU/mL The limit of quantitation (LOQ) is 52 IU/mL. EBV DNA detected below the LOQ will be reported as Detected:<52 IU/mL. This test was developed and its performance characteristics determined by [employer]. It has not been cleared or approved by the U.S. Food and Drug Administration. Results should be used in conjunction with clinical findings, and should not form the sole basis for a diagnosis or treatment decision. Testing Performed at: [facility] [address] [place] [address], [address] [place] [address] Alterations Manager: Anatoly Turk, PhD SUN[facility] ([facility]) CLIA # [id number] FLAG Interpretation: A = Abnormal, H = High, L = Low Cerebrospinal Fluid Cerebrospinal fluid specimen / Unknown Non-blood Collection / Unknown 10/14/2024 10:24 AM EDT 10/14/2024 11:01 AM EDT Narrative [facility] - 10/15/2024 8:27 PM EDT Release to patient in [facility]->Immediate Hyacinth Perkins MD LAB BODY FLUIDS AND STOOLS ORD ERABLES Final Result [facility]) * HUYEN Polyoma Virus Quantitative by PCR, CSF (10/14/2024 10:24 AM EDT) HUYEN POLYOMA VIRUS DNA, QN,CSF Not Detected Not Detected copies/mL 10/15/2024 6:34 PM EDT [facility]) Comment: Assay Range: 72 copies/mL to 1.00E+08 copies/mL The limit of quantitation (LOQ) is 72 copies/mL. HUYEN virus DNA detected below the LOQ will be reported as Detected:<72 copies/mL. This test was developed and its performance characteristics determined by [employer]. It has not been cleared or approved by the U.S. Food and Drug Administration. Results should be used in conjunction with clinical findings, and should not form the sole basis for a diagnosis or treatment decision. Testing Performed at: [facility] [address] [place] [address], [place] [address] Alterations Manager: Anatoly Turk, PhD SUNITA ([facility]) CLIA # [id number] FLAG Interpretation: A = Abnormal, H = High, L = Low Cerebrospinal Fluid Cerebrospinal fluid specimen / Unknown Non-blood Collection / Unknown 10/14/2024 10:24 AM EDT 10/14/2024 11:01 AM EDT Narrative [facility]) - 10/15/2024 6:34 PM EDT Release to patient in [facility]->Immediate Hyacinth Perkins MD LAB BODY FLUIDS AND STOOLS ORD ERABLES Final Result [facility]) * CSF Cell Count W/O Diff (10/14/2024 10:24 AM EDT) Unspun Color, CSF Colorless Colorless LAB HEMATOLOGY METHOD 10/14/2024 12:10 PM EDT [facility] Unspun Clarity, CSF Clear Clear LAB HEMATOLOGY METHOD 10/14/2024 12:10 PM EDT [facility] Spun Color, CSF LAB HEMATOLOGY METHOD 10/14/2024 12:10 PM EDT [facility] Comment:Test Not Indicated Spun Clarity, CSF LAB HEMATOLOGY METHOD 10/14/2024 12:10 PM EDT [facility] Comment:Test Not Indicated Volume CSF 3.0 cc LAB HEMATOLOGY METHOD 10/14/2024 12:10 PM EDT [facility] Tube Number, CSF Tube 1 LAB HEMATOLOGY METHOD 10/14/2024 12:10 PM EDT [facility] Total Nucleated Cell Count, CSF 2 0 - 5 L LAB HEMATOLOGY METHOD 10/14/2024 12:10 PM EDT [facility] Comment:Test performed by ma nual method. Red Blood Cell Count, CSF 1 0 uL uL LAB HEMATOLOGY METHOD 10/14/2024 12:10 PM EDT [facility] Comment:Test performed by ma nual method. Cerebrospinal Fluid Lumbar puncture / Unknown Non-blood Collection / Unknown 10/14/2024 10:24 AM EDT 10/14/2024 10:59 AM EDT Hyacinth Perkins MD LAB BODY FLUIDS AND STOOLS ORD ERABLES Final Result [facility] [address] [place] [address] * CT Chest w IV Contrast (10/13/2024 [...] MD on 10/13/2024 9:09 PM us Jamila Stanford DO IMG CT PROCEDURES Final Re sult * Osmolality, urine (10/13/2024 2:33 AM EDT) Osmolality, Urine 504 50 - 1,200 mOsm/kg 10/13/2024 4:35 AM EDT [facility] Urine Urine specimen obtained by clean catch procedure / Unknown Non-blood Collection / Unknown 10/13/2024 2:33 AM EDT 10/13/2024 2:51 AM EDT Jamila Stanford DO LAB URINE ORDERABLES Final Result [facility] [address] [place] [address] * Anti Xa Level Low Molecular Weight (10/12/2024 10:37 PM EDT) Anti Xa Level Low Molecular Weight Heparin 1.20 <2.00 IU/mL 10/12/2024 11:52 PM EDT [facility] Blood Venous blood specimen / Unknown Venipuncture / Unknown 10/12/2024 10:37 PM EDT 10/12/2024 10:43 PM EDT Narrative [facility] - 10/12/2024 11:52 PM EDT Therapeutic Range: LMWH enoxaparin 1mg/kg/dose, 12hrs - peak (3-5 hours after dose): 0.5 - 1.0 IU/mL LMWH enoxaparin 1.5mg/kg/dose, 24hrs - peak (3-5 hours after dose): 1.0 - 2.0 IU/mL LMWH enoxaparin prophylaxis: Not established us Sanya Ledezma MD LAB BLOOD ORDERABLES Final Result [facility] [address] [place] [address] * CT Abdomen Pelvis w IV Contrast [...] IMG CT PROCEDURES Final R esult * (ABNORMAL) Osmolality (10/12/2024 4:51 PM EDT) Osmolality, Serum 279(L) 280 - 301 mOsm/Kg 10/13/2024 12:14 AM EDT [facility] Blood Venous blood specimen / Unknown Venipuncture / Unknown 10/12/2024 4:51 PM EDT 10/12/2024 5:09 PM EDT Jamila Stanford DO LAB BLOOD ORDERABLES Final Result [facility] [address] [place] [address] * (ABNORMAL) Caris [place] Cancer Seek Hybrid??? + IHCs and Other Tests by Tumor Type (10/05/2024 8:54 AM EDT) [employer] Classifieds PD-L1 (22C3) Negative 2024 8:15 PM EDT [facility] Genomic Loss of Heterozygosity - [place] Low 4% 10/16/2024 8:15 PM EDT [facility] CARIS Microsatellite Instability - [place] Stable 10/16/2024 8:15 PM EDT [facility] Tumor Mutational [place] - [place] High 11 per Mb 10/16/2024 8:15 PM EDT [facility]IS Her2/Megan Negative 10/16/2024 8:15 PM EDT [employer] HLA-A - [place] A*02:01,A*24 :02 10/16/2024 8:15 PM EDT [employer] HLA-B - [place] B*08:01,B*39 :06 10/16/2024 8:15 PM EDT [employer] HLA-C - [place] C*07:01,C*07 :02 10/16/2024 8:15 PM EDT [facility] Tissue Non-blood Collection / Unknown 10/05/2024 8:54 AM EDT 10/05/2024 8:54 AM EDT Narrative This result has genomic variants that were not included in this document. Satnam Dunne MD LAB MOL DX NO SOURCE Fi nal Result [facility] [address] [address], * (ABNORMAL) Hemoglobin A1c (09/02/2024 3:25 AM EDT) [facility] Hemoglobin A1c 6.3(H) <5.7 % 09/02/2024 6:18 AM EDT [facility] Blood Venous blood specimen / Unknown Venipuncture / Unknown 09/02/2024 3:25 AM EDT 09/02/2024 3:56 AM EDT Narrative [facility] - 09/02/2024 6:18 AM EDT HA1C Interpretive Data: Diagnosis of Diabetes: Diabetic > or = 6.5% Pre-diabetic 5.7 to 6.4% Non-diabetic < or = 5.6% Glycemic Targets for Type I and Type II Diabetics: Non- Adults <7.0% Adults <6.0% Children and Adolescents <7.5% Source: [place] [employer]. Standards of medical care in diabetes,2017. Diabetes Care.2017:40 (suppl 1):S1-S135. Zoraida Herbert MD LAB BLOOD ORDERABLES Final Re sult [facility] [address] [place] [address] * ED HIV 1/2 Antibody/Antigen Screen w/Reflex to HIV 1/2 Differentiation (08/31/2024 5:54 PM EDT) [facility] HIV 1 & 2 Antibody/Antigen Screen Non Reactive Non Reactive 08/31/2024 7:08 PM EDT [facility] Comment:Screening for HIV 1 & 2 antibodies, and P24 antigen is NONREACTIVE. No confirmatory testing is required. Blood Venous blood specimen / Unknown Venipuncture / Unknown 08/31/2024 5:54 PM EDT 08/31/2024 6:28 PM EDT Kim Lares MD LAB BLOOD ORDERABLES Final Re sult Performing Organization Address City/[facility]/ZIP Co de Phone Number [facility] [address] [place] [address] * Hepatitis C Antibody - ED (08/31/2024 5:54 PM EDT) Hepatitis C Antibody Negative Negative 08/31/2024 7:15 PM EDT [facility] Blood Venous blood specimen / Unknown Venipuncture / Unknown 08/31/2024 5:54 PM EDT 08/31/2024 6:28 PM EDT us Kim Lares MD LAB BLOOD ORDERABLES Final Re sult [facility] [address] [place] [address] from Last 3 Months or Most Recently Relevant to Health Maintenance Additional Health Concerns Infection Onset Date Last Indicated 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 12/16/2024 12/22/2024 Insurance [facility] MEDICAID Advance Directives * Full Code (Latest Code Status on File) Date Activated Date Inactivated Comments 12/16/2024 4:51 AM 12/22/2024 5:48 PM Question Answer Comments I have reviewed the capacity from the link above and, if needed, have updated to appropriate status: Yes * Full Code Date Activated Date Inactivated Comments 11/30/2024 1:29 AM 12/10/2024 8:08 PM Question Answer Comments I have reviewed the capacity from the link above and, if needed, have updated to appropriate status: Yes * Full Code Date Activated Date Inactivated Comments 11/19/2024 3:43 [...] Patient has decision-making capacity? 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
--- OUTSIDE RECORDS SUMMARY | 2025-01-04 11:46 | XMS_ITS | Patient Health Record ---
Author Organization [facility] [place] Address [address] [place] [address] [place] [address] Care Team Providers Care Medical Superintendent Name Role Phone TRAY CARRERA Unavailable [phone] Tray Carrera MD Unavailable Unavailable REAL SAVAGE Unavailable [phone] Yamilet Coleman Unavailable [phone] Justina Beasley Unavailable [phone] Catherine Vidal Unavailable [phone] Allergies Allergen (clinical drug ingredient) Drug/Non Drug Allergy documented on EMR Reaction Allergy Type Onset Date Status Keflex Unknown Drug Allergy Active lisinopril lisinopril Unknown Drug Allergy Activ e meloxicam meloxicam Unknown Drug Allergy Active Results Component Value Reference Range Notes Uric Acid, Serum Reviewed date:02/26/2024 10:41:18 AM Interpretation: Performing Lab:[facility], [address] [facility], Phone - [phone], Director - Gabe Notes/Report: Uric Acid 5.0 3.0-7.2 mg/dL Therapeutic ta rget for gout patients: <6.0 Hemoglobin A1c Reviewed date:02/26/2024 10:41:10 AM Interpretation: Performing Lab:[facility], [address] [facility], Phone - [phone], Director - PhDPati Notes/Report: Hemoglobin A1c 6.3 4.8-5.6 % . Prediabetes: 5.7 - 6.4 Diabetes: >6.4 Glycemic control for adults with diabetes: <7.0 Vitamin B12 Reviewed date:02/26/2024 10:41:32 AM Interpretation: Performing Lab:[facility], Phone - [phone], Director - [facility] Notes/Report: Vitamin B12 6734 937-0015 pg/mL Magnesium, Serum Reviewed date:02/26/2024 10:41:42 AM Interpretation: Performing Lab:[address], Phone - [phone], Director - [facility] Notes/Report: Magnesium 1.8 1.6-2.3 mg/dL Prot+CreatU (Random) Reviewed date:02/26/2024 10:42:18 AM Interpretation: Performing Lab:[address], Phone - [phone], Director - [facility] Notes/Report: Creatinine, Urine 67.9 Not Estab. mg/dL Protein,Total,Urine 9.1 Not Estab. mg/dL Protein/Creat Ratio 134 0-200 mg/g creat Urinalysis, Complete Reviewed date:02/26/2024 10:42:26 AM Interpretation: Performing Lab:[address], Phone - [phone], Director - [facility] Notes/Report: Specific [place] 1.028 1.005-1.030 pH 6.5 5.0-7.5 Urine-Color Yellow [...] seen /lpf Bacteria None seen None seen/Few TSH Reviewed date:02/26/2024 10:41:37 AM Interpretation: Performing Lab:[address], Phone - [phone], Director - [facility] Notes/Report: TSH 2.980 0.450-4.500 uIU/mL CBC With Differential/Platel et Reviewed date:02/26/2024 10:42:12 AM Interpretation: Performing Lab[facility], [address] [facility], Phone - [phone], [facility]Report: WBC 7.5 3.4-10.8 x10E3/uL RBC 3.37 [...] % Immature Grans (Abs) 0.0 0.0-0.1 x10E3/uL Vitamin D, 25-Hydroxy Reviewed date:02/26/2024 10:41:28 AM Interpretation: Performing Lab:[facility] [place], [address] [facility], Phone - [phone], [facility]/Report: Vitamin D, 25-Hydroxy 33.8 30.0-100.0 ng/mL Vitamin D deficiency has been defined by the [place] of Medicine and an Endocrine Society practice guideline as a level of serum 25-OH vitamin D less than 20 ng/mL (1,2). The Endocrine Society went on to further define vitamin D insufficiency as a level between 21 and 29 ng/mL (2). 1. IOM ([place] of Medicine). 2010. Dietary reference intakes for calcium and D. Prabhakar [place]: The National Academies Press. 2. Lawrence MF, Yusuf NC, Pablito ONEAL, et al. Evaluation, treatment, and prevention of vitamin D deficiency: an Endocrine Society clinical practice guideline. JCEM. 2010; 96(7):1911-30. Lipid Panel With LDL/HDL Rat io Reviewed date:02/26/2024 10:41:23 AM Interpretation: Performing Lab:[facility] [place], [address] [facility], Phone - [phone], Director - PhDPati Notes/Report: Cholesterol, Total 134 100-199 mg/dL Triglycerides 71 0-149 mg/dL HDL Cholesterol 56 >39 mg/dL VLDL Cholesterol Luis 14 5-40 mg/dL LDL Chol Calc (NIH) 64 0-99 mg/dL LDL/HDL Ratio 1.1 0.0-3.2 ratio LDL/HDL Ratio Men Women 1/2 Avg.Risk 1.0 1.5 Avg.Risk 3.6 3.2 2X Avg.Risk 6.2 5.0 3X Avg.Risk 8.0 6.1 Comp. Metabolic Panel (14) Reviewed date:02/26/2024 10:41:06 AM Interpretation: Performing Lab:[facility] [place], [address] [facility], Phone - [phone], Director - [facility] Notes/Report: Glucose 108 70-99 mg/dL BUN 18 [...] 0-40 IU/L ALT (SGPT) 11 0-32 IU/L Urinalysis, Complete Reviewed date:09/26/2024 10:10:03 AM Interpretation: Performing Lab: Notes/Report: Specific [place] 1.015 pH 6 Urine-Color YELLOW Appearance CLEAR WBC Esterase NEG Protein NEG Glucose 3+ Ketones NEG Occult Blood NEG Bilirubin NEG Urobilinogen,Semi-Qn 3.5 Nitrite, Urine NEG Electrocardiogram (EKG) Reviewed date:08/14/2024 05:14:30 PM Interpretation: Performing Lab: Notes/Report: Comp. Metabolic Panel (14) Reviewed date:07/11/2024 08:43:11 AM Interpretation: Performing Lab:[facility] [place], [address] [facility], Phone - [phone], Director [facility] Notes/Report: Glucose 139 70-99 mg/dL BUN 14 [...] Reviewed date:07/11/2024 08:43:28 AM Interpretation: Performing Lab:[facility] [place], [address] [facility], Phone - [phone], Director - Gabe Notes/Report: Cholesterol, Total 137 100-199 mg/dL Triglycerides 98 0-149 mg/dL HDL Cholesterol 51 >39 mg/dL VLDL Cholesterol Luis 18 5-40 mg/dL LDL Chol Calc (NIH) 68 0-99 mg/dL LDL/HDL Ratio 1.3 0.0-3.2 ratio LDL/HDL Ratio Men Women 1/2 Avg.Risk 1.0 1.5 Avg.Risk 3.6 3.2 2X Avg.Risk 6.2 5.0 3X Avg.Risk 8.0 6.1 Microalb/Creat Ratio, Randm Ur Reviewed date:07/11/2024 08:42:54 AM Interpretation: Performing Lab:[facility] [place], [address] [place] [address], Phone - [phone], [facility] Notes/Report: Albumin, Urine <3.0 Not Estab. ug/mL Alb/Creat Ratio <5 0-29 mg/g creat Normal: 0 - 29 Moderately increased: 30 - 300 Severely increased: >300 Vitamin D, 25-Hydroxy Reviewed date:07/11/2024 08:43:34 AM Interpretation: Performing Lab:[facility], Phone - [phone], [facility] Notes/Report: Vitamin D, 25-Hydroxy 31.8 30.0-100.0 ng/mL Vitamin D deficiency has been defined by the [place] of Medicine and an Endocrine Society practice guideline as a level of serum 25-OH vitamin D less than 20 ng/mL (1,2). The Endocrine Society went on to further define vitamin D insufficiency as a level between 21 and 29 ng/mL (2). 1. IOM ([place] of Medicine). 2010. Dietary reference intakes for calcium and D. Prabhakar [place]: The National Academies Press. 2. Lawrence MF, Yusuf NC, Pablito ONEAL, et al. Evaluation, treatment, and prevention of vitamin D deficiency: an Endocrine Society clinical practice guideline. JCEM. 2010; 96(7):1911-30. CBC With Differential/Platel et Reviewed date:07/11/2024 08:43:54 AM Interpretation: Performing Lab:[facility], [address] [place] [address], Phone - [phone], Director - [facility] Notes/Report: WBC 7.5 3.4-10.8 x10E3/uL RBC 3.81 [...] TSH Reviewed date:07/11/2024 08:43:39 AM Interpretation: Performing Lab:[facility] [place], [address] [place] [address], Phone - [phone], Director - [facility] Notes/Report: TSH 2.140 0.450-4.500 uIU/mL Urinalysis, Complete Reviewed date:07/11/2024 08:44:12 AM Interpretation: Performing Lab:[facility] [place], [address] [place] [address], Phone - [phone], Director - [facility] Notes/Report: Specific [place] >=1.030 1.005-1.030 pH 5.5 5.0-7.5 Urine-Color Yellow [...] (Random) Reviewed date:07/11/2024 08:44:02 AM Interpretation: Performing Lab:[address], Phone - [phone], Director - [facility] Notes/Report: Creatinine, Urine 58.6 Not Estab. mg/dL Protein,Total,Urine 12.6 Not Estab. mg/dL Protein/Creat Ratio 215 0-200 mg/g creat Magnesium, Serum Reviewed date:07/11/2024 08:43:44 AM Interpretation: Performing Lab:[address], Phone - [phone], Director - [facility] Notes/Report: Magnesium 1.6 1.6-2.3 mg/dL Hemoglobin A1c Reviewed date:07/11/2024 08:43:16 AM Interpretation: Performing Lab:[address], Phone - [phone], Director - [facility] Notes/Report: Hemoglobin A1c 6.6 4.8-5.6 % . Prediabetes: 5.7 - 6.4 Diabetes: >6.4 Glycemic control for adults with diabetes: <7.0 Vitamin B12 and Folate Reviewed date:07/11/2024 08:42:58 AM Interpretation: Performing Lab:[address], Phone - [phone], Director - [facility] Notes/Report: Vitamin B12 3060 803-3554 pg/mL Folate (Folic Acid), Serum 9.0 >3.0 ng/mL A serum folate concentration of less than 3.1 ng/mL is considered to represent clinical deficiency. TSH Reviewed date:12/16/2024 08:51:26 AM Interpretation: Performing Lab:[address], Phone - [phone], Director - [facility] Notes/Report: TSH 2.610 0.450-4.500 uIU/mL Magnesium, Serum Reviewed date:12/16/2024 08:51:30 AM Interpretation: Performing Lab:[address], Phone - [phone], Director - [facility] Notes/Report: Magnesium 1.0 1.6-2.3 mg/dL Comp. Metabolic Panel (14) Reviewed date:12/16/2024 08:50:26 AM Interpretation: Performing Lab:[facility] [place], [address] [facility], [place], Phone - [phone], Director - Gabe Notes/Report: Glucose 186 70-99 mg/dL BUN 20 [...] 0-40 IU/L ALT (SGPT) 9 0-32 IU/L Urinalysis, Routine Reviewed date:03/21/2024 12:29:01 PM Interpretation: Performing Lab: Notes/Report: Urine-Color YELLOW Appearance DARK Specific [place] 1.015 pH 6.0 Glucose 3+ Protein NEG Occult Blood NEG Bilirubin NEG Urobilinogen,Semi-Qn NEG Nitrite, Urine NEG Ketones NEG WBC Esterase NEG X ray : Foot, right 3v Reviewed date:02/01/2024 11:17:29 AM Interpretation: Performing Lab: Notes/Report: Reason For Referral Reason right foot pain Diagnosis 1 Foot pain, right (M7 9.671) Referral Organization [facility] Referring Provider First Name Yamilet Referring Provider Last Name Jared Referring Provider Speciality Physician Clinical Reimbursement Specialist Referred Provider FELIPA CERVANTES Referred Provider Specialty Podiatry General Notes JANNETH MORALES 02/02 01:40:42 PM > FAXEDCARMEN DEBBIE 02/05/2024 09:42:21 AM > PER FAX PT HAS BEEN NOTIFIED. Referral Priority Urgent Referral Appointment Date 02/25/2024 Reason Samson Best M.D. Orthopaedic & Spine Surgery at [facility] orthopedic Diagnosis 1 Low back pain, unspe cified (M54.50) Referral Organization [facility] Referring Provider First Name Justina Referring Provider Last Name Ramos Referring Provider Speciality Nurse Solo dubois Referred Provider deepa gillette Referred Provider Specialty Orthopedic S urgery General Notes TINGLEANAYELIJANNETH 08/26 10:34:29 AM > FAXED, ZHANGGLEANAYELIJANNETH 09/13/2024 04:05:27 PM > PT NOTIFIED BY [facility] Referral Priority Urgent Referral Appointment Date 09/14/2024 Reason PT/OT and home healt h , starting chemo Diagnosis 1 Malignant neoplasm o f unspecified part of unspecified bronchus or lung (C34.90) Referral Organization [facility] Referring Provider First Name Yamilet Referring Provider Last Name Jared Referring Provider Speciality Physician Clinical Reimbursement Specialist Referred Provider Home Health 2, Amedy sis Referred Provider Specialty Other Medica l Care General Notes TINGLEANAYELIJANNETH 10/04 12:09:51 PM > FAXED Referral Priority Urgent Reason home health, PT, OT Diagnosis 1 Pneumonia, unspecifi ed organism (J18.9) Referral Organization [facility] Referring Provider First Name Yamilet Referring Provider Last Name Jared Referring Provider Speciality Physician Clinical Reimbursement Specialist Referred Provider Home Health 2, Amedy sis Referred Provider Specialty Other Medica l Care General Notes TINGLE JANNETH 10/28 01:52:00 PM > FAXED Referral Priority Routine Reason home health or palla itive care [facility]. Diagnosis 1 Cellulitis of left l ower extremity (L03.116) Referral Organization [facility] Referring Provider First Name REAL Referring Provider Last Name JANETTE Referring Provider Speciality Nurse Solo dubois Referred Provider Specialty Other Medica l Care General Notes TINGLEANAYELIJANNETH 12/01 12:10:22 PM > [facility] P: [phone] F: [phone] (FAXED) Referral Priority Routine Diagnosis 1 Cellulitis of left l ower extremity (L03.116) Diagnosis 2 Malignant neoplasm o f unspecified part of unspecified bronchus or lung (C34.90) Diagnosis 3 COPD without exacerb ation (J44.9) Diagnosis 4 Weakness generalized (R53.1) Diagnosis 5 Pneumonia, unspecifi ed organism (J18.9) Referral Organization [facility] Referring Provider First Name Yamilet Referring Provider Last Name Jared Referring Provider Speciality Physician Clinical Reimbursement Specialist Referred Provider Specialty Palliative c are physician General Notes JANNETH MORALES 12/15 04:07:50 PM > [facility] P: [phone] F: [phone] (FAXED), JANNETH MORALES 12/20/2024 04:08:27 PM > NEW FAX # [phone], JANNETH MORALES 12/23/2024 10:08:07 AM > DOMINIC GALLEGOS IN PALLIATIVE DID NOT RECEIVE REFAXED TODAY. Referral Priority Routine Medications Medication SIG (Take, Route, Frequency, Duration) Notes Start Date End Date Status Insulin Lispro 100 UNIT/ML inject 15 units with meals Active Bactrim DS 800-160 MG 1 tablet Orally tw ice a day; Duration: 10 days 11/24/2024 Active rOPINIRole HCl 1 mg 1 tablet orally twic e a day; Duration: 30 day(s) 08/23/2024 Active Breztri Aerosphere 160-9-4.8 MCG/ACT INHALE 2 PUFFS 2 TIMES EACH DAY; Duration: 30 Active Triamterene-HCTZ 37.5-25 MG 1 tablet in the morning Orally Once a day; Duration: 90 days Not-Taking Montelukast Sodium 10 MG 1 tablet Orally Once a day; Duration: 30 days Active FreeStyle Lite Test - as directed In Vit ro daily; Duration: 30 days Active Vitamin B-12 ER 1000 MCG 1 tablet Orally Once a day; Duration: 90 days Active metFORMIN HCl 1000 MG 1 tablet with meal s Orally Twice a day; Duration: 30 days Active Ciclopirox 8 % 1 application Externally Once a day; Duration: 30 days 07/08/2024 Not-Taking Calcium 600/Vitamin D 600-10 MG-MCG 1 tablet with a meal Orally Once a day; Duration: 30 days Active Carvedilol 25 MG 1 tablet Orally Twic e a day; Duration: 30 days Active Calcium Carbonate Ac tive Alcohol Prep Pads 70 % as directed; Duration: 30 days Active Pantoprazole Sodium 40 mg TAKE 1 TABLET 1 TIME EACH DAY; Duration: 30 Active Accu-Chek Softclix Lancets - USE TO TEST BLOOD SUGAR 3 TIMES EACH DAY; Duration: 30 Active Januvia 50 MG 1 tablet Orally Once a day; Duration: 30 days Active Lipitor 40 MG 1 tablet Orally Once a day; Duration: 90 days Active Dexcom G7 Sensor - as directed 09/26/2024 Active Insulin Glargine-yfgn 100 UNIT/ML inject 20 units under the skin Subcutaneous nightly Active hydrOXYzine HCl 25 MG 1 tablet as needed Orally three times a day; Duration: 30 days Active FLUoxetine HCl 40 mg take 1 tablet oral once aday; Duration: 90 days Active Cyproheptadine HCl 4 MG 1 tablet Orally Twice a day; Duration: 30 days 01/03/2025 Active Magnesium Oxide 400 MG 1 tablet with citlali d Orally twice a day 10/20/2024 Active Melatonin Active Compazine Active tiZANidine HCl 2 MG 1 tablet at bedtime as needed Orally Once a day; Duration: 10 days 08/23/2024 Active Acetaminophen 325 MG 2 tablets Orally every 6 hrs 11/24/2024 Active Dexcom G6 Transmitter - as directed; Duration: 90 days Active Nystatin 655335 UNIT/ML swish and swallo w 5mL Mouth/Throat Four times a day for 39 doses 10/20/2024 Active Dexcom G7 Development Scientist - as directed 09/26/2024 Active Ondansetron 8 MG 1 tablet on the tongue and allow to dissolve as needed Orally every 8 hours Active Ferrous Sulfate 325 (65 Fe) MG 1 tablet Orally once a day; Duration: 30 days 08/23/2024 Active Ofloxacin 0.3 % 5 drops into affecte d ear right ear Otic Once a day; Duration: 7 days 11/24/2024 Active Dexcom G6 Development Scientist - as directed 02/12/2024 Active Fluconazole 200 MG 1 tablet Orally daily; Duration: 7 days 11/24/2024 Active Protonix 40 MG 1 tablet Orally Once a day; Duration: 90 days Active Azithromycin 250 MG take 2 tablets the first day then 1 daily Orally daily; Duration: 5 days 10/21/2024 Not-Taking Atorvastatin Calcium 40 MG 1 tablet Orally Once a day 11/24/2024 Active Cetirizine HCl 10 mg TAKE 1 TABLET 1 AURELIA E EACH DAY daily; Duration: 90 days Active Cyanocobalamin ER 1000 MCG 1 tablet Orally Once a day 11/24/2024 Active Benzonatate 100 MG 1 capsule as needed Orally Three times a day; Duration: 30 days 07/08/2024 Active Jardiance 25 mg TAKE 1 TABLET 1 TIME EACH DAY; Duration: 90 days Not-Taking Xarelto 20 MG 1 tablet with food Orally Once a day; Duration: 30 days Not-Taking Vitamin D-[address] 25 MCG (1000 UT) 1 tablet Orally Once a day Active Benzonatate 100 MG 1 capsule as needed Orally Three times a day; Duration: 15 days Not-Taking Gabapentin 600 MG 1 capsule Orally 4 times a day; Duration: 28 days oncology 12/07/2023 Active dexAMETHasone 2 MG 1 tablet Orally twic e a day Not-Taking Immunizations Vaccine Route Administration Date Status Comme [...] Hyperglycemia due to type 2 diabetes mellitus (388364241592238) Type 2 diabetes mellitus with hyperglycemia (E11.65) Active confirmed Ricky-Bi n Problem Type II diabetes mellitus without complication (398279386) Type 2 diabetes mellitus without complications (E11.9) Active confirmed Ricky-Bi n Problem Mixed hyperlipidemia (751268541) Mixed hyperlipidemia (E78.2) Active confirmed Ricky-Bi n Problem Essential hypertension (21037387) Essential (primary) hypertension (I10) Active confirmed Ricky-Bi n Problem Congenital single renal cyst (7873395709775) Congenital single renal cyst (Q61.01) Active confirmed Ricky-Bi n Problem Malignant tumor of lung (339314215) Malignant neoplasm of unspecified part of unspecified bronchus or lung (C34.90) Active confirmed Problem Anemia (346341712) Anemia, unspe cified (D64.9) Active confirmed Problem Hypomagnesemia (638336385) Hypomagnesemia (E83.42) Active confirmed Problem Disorder of urinary bladder (07688438) Other specified disorders of bladder (N32.89) Active confirmed Problem Abnormal uterine bleeding (28417775526360) Abnormal uterine and vaginal bleeding, unspecified (N93.9) Active confirmed Problem Congenital renal cyst (555866662846465) Congenital multiple renal cysts (Q61.02) Active confirmed Problem Nausea (328889090) Nausea (R11.0) Active confir med Problem Body mass index 40+ - severely obese (731692220) Body mass index (BMI) 45.0-49.9, adult (Z68.42) Active confirmed Problem Vitamin D deficiency (10782471) Vitamin D deficiency (E55.9) Active confirmed Problem Neuropathy (574806019) Neuropathy (G62.9) Active confirmed Problem Anxiety (82447281) Anxiety (F41.9) Active confi rmed Problem Chronic kidney disease stage 2 (996269411) Chronic kidney disease (CKD), stage II (mild) (N18.2) Active confirmed Problem Gastroesophageal reflux disease without esophagitis (423278020) Gastroesophageal reflux disease without esophagitis (K21.9) Active confirmed Problem Allergic rhinitis (31568656) Allergic rhinitis (J30.9) Active confirmed Problem Allergic rhinitis (67347863) Acute allergic rhinitis, unspecified seasonality, unspecified trigger (J30.9) Active confirmed Problem Restless legs (13645541) Restless leg (G25.81) Active confirmed Problem Patient immunocompromised (750356154) Immunocompromised patient (D84.9) Active confirmed Problem Diabetes mellitus type 2 (08020580) Diabetes mellitus type 2, uncontrolled (E11.65) Active confirmed Problem Incontinence (05383940) Incontinence in female (R32) Active confirmed Problem Acute exacerbation of chronic obstructive airways disease (434489985) COPD exacerbation (J44.1) Active confirmed Problem Chronic obstructive lung disease (00348638) COPD without exacerbation (J44.9) Active confirmed Problem Irritable bowel syndrome (30859627) Irritable bowel syndrome, unspecified type (K58.9) Active confirmed Problem Tobacco dependence (16432047) Tobacco dependence (F17.200) Active confirmed Problem Vertebrogenic low back pain (634423165033562105 ) Vertebrogenic low back pain (M54.51) Active confirmed Vital Signs Heart Rate 106 /min 12/15/2024 Temperature 98.7 degrees Fahrenheit 12/15/2024 Respiratory Rate 18 /min 12/15/2024 Oximetry 97 % 12/15/2024 Blood pressure diastolic 88 mm Hg 12/15/2024 Height 67 in 12/15/2024 Blood pressure systolic 132 mm Hg 12/15/2024 Weight 242 lbs 08/23/2024 BMI 37.9 kg/m2 08/23/2024 Encounters Encounter Location Date Provider Diagnosis [facility] [place] [address] 02/01/2024 Yamilet Coelman Foot pain, right M79 .671 and Encounter for immunization Z23 [facility] [place] [address] 02/05/2024 Yamileteliot Coleman Foot pain, right M79 .671 [facility] [place] [address] 02/25/2024 Yamilet Coleman Annual physical exam Z00.00 [...] G62.9 and Vitamin D deficiency E55.9 [facility] [place] [address] 03/21/2024 Yamilet Coleman COVID-19 U07.1 ; Dys uria R30.0 ; Yeast infection B37.9 ; Vitamin D deficiency E55.9 ; Gastroesophageal reflux disease without esophagitis K21.9 ; Type 2 diabetes mellitus with hyperglycemia E11.65 and COPD without exacerbation J44.9 [facility] [place] [address] 03/28/2024 Yamilet Coleman Acute frontal sinusi tis, unspecified J01.10 and Acute bacterial conjunctivitis of right eye H10.31 [facility] [place] [place] [address] 04/27/2024 Yamilet Coleman Type 2 diabetes mo itus with hyperglycemia E11.65 ; COPD without exacerbation J44.9 ; Congenital multiple renal cysts Q61.02 ; Gastroesophageal reflux disease without esophagitis K21.9 ; Neuropathy G62.9 ; Malignant neoplasm of unspecified part of unspecified bronchus or lung C34.90 ; Mixed hyperlipidemia E78.2 ; Allergic rhinitis J30.9 and Vitamin D deficiency E55.9 [facility] [place] [address] 05/16/2024 Yamilet Coleman Type 2 diabetes mo [...] type R53.83 [facility] [place] [address] 07/08/2024 Yamilet Berry Type 2 diabetes mo itus with hyperglycemia [...] type R53.83 [facility] [place] [address] 08/05/2024 Catherine Vidal Acute cough R05.1 ; Pneumonia, unspecified organism J18.9 ; COPD without exacerbation J44.9 and Malignant neoplasm of unspecified part of unspecified bronchus or lung C34.90 [facility] [address] [address] 08/12/2024 Catherine Vidal Chest pain at rest R 07.9 ; Essential (primary) hypertension I10 ; COPD without exacerbation J44.9 and Chronic kidney disease (CKD), stage II (mild) N18.2 [facility] [place] [address] 08/23/2024 Justina Ramos Low back pain, unspecified M54.50 ; Restless leg G25.81 and Anemia, unspecified D64.9 [facility] [address] [place] [address] 09/26/2024 Yamilet Coleman Type 2 diabetes mo [...] (mild) N18.2 [facility] [place] [address] 09/29/2024 Yamilet Coleman Pneumonia, unspecifi ed organism J18.9 ; Malignant neoplasm of unspecified part of unspecified bronchus or lung C34.90 ; Acute cough R05.1 ; Weakness generalized R53.1 ; COPD without exacerbation J44.9 and Anxiety F41.9 [facility] [facility] [address] 10/21/2024 Yamilet Coleman Pneumonia, unspecifi ed organism J18.9 ; Malignant neoplasm of unspecified part of unspecified bronchus or lung C34.90 ; Essential (primary) hypertension I10 ; Acute cough R05.1 ; Weakness generalized R53.1 ; COPD without exacerbation J44.9 and Anxiety F41.9 [facility] [address] 11/24/2024 REAL JANETTE Cellulitis of left l ower extremity L03.116 ; Yeast infection B37.9 ; Type 2 diabetes mellitus with hyperglycemia E11.65 ; Cellulitis of right external ear H60.11 and Immunocompromised patient D84.9 [facility] [address] 12/15/2024 Yamilet Coleman Malignant neoplasm o f unspecified part of unspecified bronchus or lung C34.90 ; Pneumonia, unspecified organism J18.9 ; Essential (primary) hypertension I10 ; Acute cough R05.1 ; Weakness generalized R53.1 ; COPD without exacerbation J44.9 and Anxiety F41.9 [facility] [address] 02/03/2024 Yamilet Coleman Anxiety F41.9 ; Neuropathy G62.9 and Type 2 diabetes mellitus with hyperglycemia E11.65 [facility] [place] [address] 02/11/2024 Yamilet Coleman [facility] [place] [address] 02/12/2024 Yamilet Coleman Type 2 diabetes mo itus with hyperglycemia E11.65 [facility] [place] [address] [place] [id number] 02/16/2024 TRAY CARRERA [facility] [address] 03/04/2024 TRAY CARRERA Anxiety F41.9 [facility] [place] [address] 03/21/2024 Yamilet Coleman [facility] [place] [address] 03/21/2024 Yamilet Coleman [facility] [place] [address] 03/21/2024 Yamilet Coleman [facility] [place] [address] [place] [address] 04/05/2024 Yamilet Coleman Gastroesophageal ref lux disease without esophagitis K21.9 and COPD without exacerbation J44.9 [facility] [place] [address] [place] [address] 05/06/2024 TRAY CARRERA Type 2 diabetes mo itus with hyperglycemia E11.65 [facility] [place] [address] [id number] 05/10/2024 REZKIMBERLEYREGIA EKTAROS [facility] [place] [address] [place] [address] 06/03/2024 Yamilet Coleman Type 2 diabetes mo itus with hyperglycemia E11.65 [facility] [place] [address] 07/04/2024 Yamilet Coleman [facility] [place] [address] 07/04/2024 Yamilet Coleman Yeast infection B37. 9 and Type 2 diabetes mellitus with hyperglycemia E11.65 [facility] [place] [address] 08/02/2024 Yamilet Coleman [facility] [place] [address] 09/28/2024 Yamilet Coleman [facility] [address] [address] 10/20/2024 TONYA DEBI [facility] [place] [address] 12/29/2024 TRAY CARRERA Restless leg G25.81 [facility] [place] [address] 01/02/2025 Yamilet Coleman Assessments Encounter Date Diagnosis (ICD Code) Assessment Notes Treatment Notes Treatment Clinical Notes Section Notes 02/01/2024 Encounter for immunization (ICD-10 - Z23) [...] - R07.9) EKG-normal sinus rhythm Pt to [facility] cariologist's office about cp. 09/29/2024 Malignant [...] and 16 oz water bid. pt agrees. 12/15/2024 Malignant neoplasm o f unspecified part of [...] fluids Encourage rest, hydration, and supportive care 12/29/2024 Restless leg (ICD-10 - G25.81) 12/15/2024 Essential (primary) hypertension (ICD-10 - I10) increasing carvediolol dose today 09/29/2024 Acute cough (ICD-10 - R05.1) 11/24/2024 Type 2 diabetes mellitus with hyperglycemia (ICD-10 - E11.65) [facility] decent control aic 6.6 in 2-202410/21/2024 Essential (primary) hypertension (ICD-10 - I10) increasing [...] done today 02/03/2024 Neuropathy (ICD-10 - G62.9) 02/03/2024 Type 2 diabetes mellitus with hyperglycemia [...] H60.11) 10/21/2024 Acute cough (ICD-10 - R05.1) 12/15/2024 Acute cough (ICD-10 - R05.1) 11/24/2024 Immunocompromised patient (ICD-10 - D84.9) 12/15/2024 Weakness generalized (ICD-10 - R53.1) using walker pt appears to be declining working to get home health / pallative 10/21/2024 Weakness generalized (ICD-10 - R53.1) 09/26/2024 [...] (ICD-10 - G62.9) stable. tx from oncology 02/25/2024 Malignant neoplasm o f unspecified part of unspecified bronchus or lung (ICD-10 - C34.90) follows with pulm and oncology, goes for PET scan soon 02/25/2024 Anxiety (ICD-10 - F41.9) wouls like [...] esophagitis (ICD-10 - K21.9) stable on protonix 12/15/2024 COPD without exacerbation (ICD-10 - J44.9) stable. has stopped smoking 12/15/2024 Anxiety (ICD-10 - F41.9) hydroxyzine to take as needed during the day 09/26/2024 Neuropathy (ICD-10 - G62.9) stable. tx [...] 02/25/2024 COPD without exacerbation (ICD-10 - J44.9) 02/25/2024 Essential (primary) hypertension (ICD-10 - I10) [...] 04/27/2024 Vitamin D deficiency (ICD-10 - E55.9) 02/25/2024 Hypomagnesemia (ICD-10 - E83.42) 05/16/2024 Vitamin [...] Treatment Pending Test Test Name Order Date Vitamin B12 and Folate 12/15/2024 Uric Acid, Serum 04/03/2023 Hemoglobin A1c 04/03/2023 Hemoglobin A1c 12/15/2024 Vitamin B12 04/03/2023 Magnesium, Serum 04/03/2023 Prot+CreatU (Random) 04/03/2023 Urinalysis, Complete 04/03/2023 Urinalysis, Complete 12/15/2024 CBC With Differential/Platelet CBC With Differential/Platelet 3 Vitamin D, 25-Hydroxy 04/03/2023 Vitamin D, 25-Hydroxy 12/15/2024 Respiratory Profile, PCR 05/16/2024 Lipid Panel With LDL/HDL Ratio Comp. Metabolic Panel (14) 04/03/2023 Next Appt Details Provider Name:Yamilet heath, 02/27/2025 10:30:00 AM, [address], [place], [address], Insurance Providers Payer Name Payer Address Payer Phone Subscriber Number Group Number Insured Name Patient Relationship to Insured Coverage Start Date Coverage End Date [employer] -[place] [address] [address] [place] [address] [id number] Teresa Urbina Self - patient is the insured Medical (General) History Medical History History ICD Code Hypertension (Ricky)High Cholesterol (Ricky) Arthritis (Ricky)Diabetes (Ricky) Surgical History Surgery Date(Month/Year) No Surgeries As Of Todays Date Hospitalization History Reason Date(Month/Year) Pneumonia 06/2017
--- OUTSIDE RECORDS SUMMARY | 2025-01-04 11:46 | XMS_ITS | Encounter Summary ---
Author Organization Healthcare Address [address] [place] [address] Care Team Providers Care Funeral Service Practitioner/Embalmer Name Role Phone Paola Hyde APRN Primary Care Provider Laurie Gutierrez MD Primary Care Provider [phone] Joshua Martínez MD Unavailable Jasmina Smith CO OP Unavailable Unavailable Paradise Pacheco RN Unavailable Unavailab Sabine Crowe CO OP Unavailable Unavailable Encounter Details Date Type Department Care Team (Late st Contact Info) Description 09/01/2023 Orders Only External Location [address] [place] [address] Provider, External Social History Tobacco Use Types [...] PM EDT Office Visit [facility] [address] [place] [address] Lia Barnse APRN [address] [facility] [address] [place] [address] 01/10/2025 9:00 AM EDT Clinical Support [facility] [address] [facility], 2nd [place] [address] 01/10/2025 9:40 AM EDT Office Visit [facility] [address] [facility], 2nd [place] [address] Satnam Colvin MD [address] [facility] [address] [place] [address] 01/10/2025 12:00 PM EDT Appointment [facility] 1 [address] [place] [address] 01/11/2025 3:30 PM EDT Appointment [facility] 1 [address] [place] [address] 01/12/2025 3:30 PM EDT Appointment [facility] 2 [address] [place] [address] 01/19/2025 9:20 AM EDT Appointment [facility] [address], 1st [place] [address] 01/19/2025 10:45 AM EDT Office Visit [place] [facility] [address], 1st [place] [address] Abhilash Bangura MD [address] [place] [address] 01/26/2025 4:30 PM EDT Office Visit [facility] [address] [place] [address] Lia Barnes, DOOR TO DOOR SELLING DISTRIBUTOR [address] [facility] [address] [place] [address] 03/08/2025 1:00 PM EDT Office Visit [facility] [place] 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 12/16/2024 12/22/2024 documented as of this encounter Care Teams Funeral Service Practitioner/Embalmer Relationship Specialty Start Date End Date Paola Hyde APRN [address] [place] [address] [id number] PCP - General 09/28/20 12/08/23 Laurie Gutierrez MD [address] [place] [address] PCP - General 12/09/23 Joshua Martínez MD [address] [place] [address] Consulting Physician Radiation Oncology 09/19/24 Jasmina Smith LPN VALUE-[place]ED [place] [address] TCM Nurse 10/19/24 11/01/24 Paradise Pacheco, RN [facility]ULAR [facility] INTERVENTIONAL RADIOLOGY Registered Nurse 11/21/24 11/21/24 Sabine Morales LPN TCM Nurse 11/23/24 12/23/24 documented as of this encounter
--- OUTSIDE RECORDS SUMMARY | 2025-01-04 11:47 | XMS_ITS | Encounter Summary ---
Author Organization Healthcare Address [address] [place] [address] Care Team Providers Care Inspector Machined Parts Name Role Phone Laurie Gutierrez MD Primary Care Provider [phone] Joshua Martínez MD Unavailable Encounter Details Date Type Department Care Team (Latest Contact Info) Description 01/03/2025 Travel Social History Tobacco Use Types Packs/Day [...] drink first t laurie in the morning (EYE-PRINT COLOR OPERATOR) to steady your nerves or to get rid of a hangover? 0 12/02/2024 CAGE Questionnaire Score 0 025 Utilities Answer Date Recorded In the past 12 months has th e Xcedex, gas, oil, or water company threatened to [...] Description 01/05/2025 1:00 PM EDT Office Visit [facility] [address] [place] [address] Lia Barnes, MACHINE TOOL BUILDER [address] [facility] [address] [place] [address] 01/10/2025 9:00 AM EDT Clinical Support [facility] [address] [facility], 2nd [place] [address] 01/10/2025 9:40 AM EDT Office Visit [facility] [address] [facility], 2nd [place] [address] Satnam Colvin MD [address] [facility] [address] [place] [address] 01/10/2025 12:00 PM EDT Appointment [facility] 1 [address] [place] [address] 01/11/2025 3:30 PM EDT Appointment [facility] 1 [address] [place] [address] 01/12/2025 3:30 PM EDT Appointment [facility] 2 [address] [place] [address] 01/19/2025 9:20 AM EDT Appointment [facility] [address], 1st [place] [address] 01/19/2025 10:45 AM EDT Office Visit [place] [facility] [address], 1st [place] [address] Abhilash Bangura MD [address] [place] [address] 01/26/2025 4:30 PM EDT Office Visit [facility] [address] [place] [address] Lia Barnes, MACHINE TOOL BUILDER [address] [facility] [address] [place] [address] 03/08/2025 1:00 PM EDT Office Visit [facility] [place] 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 12/16/2024 12/22/2024 Assessment Noted Time PHQ-9 Depression Total Score: 0 09/01/19 3:26 PM EDT A fall risk assessment has been complete d for the patient 01/03/2025 9:25 AM EDT A Body Mass Index follow-up plan has been documented for the patient 12/23/2024 8:17 AM EDT documented as of this encounter Care Teams Inspector Machined Parts Relationship Specialty Start Date End Date Laurie Gutierrez MD [address] [place], [place] [phone] PCP - General 12/09/23 Joshua Martínez MD [address] [place] [address] Consulting Physician Radiation Oncology 09/19/24 documented as of this encounter
--- OUTSIDE RECORDS SUMMARY | 2025-01-04 11:47 | XMS_ITS | Encounter Summary ---
Author Organization Healthcare Address [address] [place] [address] Care Team Providers Care Director Compensation Name Role Phone Laurie Gutierrez MD Primary Care Provider [phone] Joshua Martínez MD Unavailable Encounter Details Date [...] drink first t laurie in the morning (EYE-ANODISER) to steady your nerves or to get [...] Description 01/05/2025 1:00 PM EDT Office Visit [facility] [address] [place] [address] Lia Barnes, ROBOTICS TECHNICIAN [address] [facility] [address] [place] [address] 01/10/2025 9:00 AM EDT Clinical Support [facility] [address] [facility], 2nd [place] [address] 01/10/2025 9:40 AM EDT Office Visit [facility] [address] [facility], 2nd [place] [address] Satnam Colvin MD [address] [facility] [address] [place] [address] 01/10/2025 12:00 PM EDT Appointment [facility] 1 [address] [place] [address] 01/11/2025 3:30 PM EDT Appointment [facility] 1 [address] [place] [address] 01/12/2025 3:30 PM EDT Appointment [facility] 2 [address] [place] [address] 01/19/2025 9:20 AM EDT Appointment [facility] S [facility] [address], [address]st [place] [address] 01/19/2025 10:45 AM EDT Office Visit [place] [facility] [address], 1st [place] [address] Abhilash Bangura MD [address] [place] [address] 01/26/2025 4:30 PM EDT Office Visit [facility] [address] [facility] [place] [address] Lia Barnes, ROBOTICS TECHNICIAN [address] [facility] [address] [place] [address] 03/08/2025 1:00 PM EDT Office Visit [facility] [place] [address] [facility]. 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, FLOOR RENOVATOR 10/26/2024 10/31/2024 Assessment Noted Time PHQ-9 Depression Total Score: 0 09/01/19 25 3:26 PM EDT A fall risk assessment has been complete d for the patient 11/10/2024 2:43 PM EDT A Body Mass Index follow-up plan has been documented for the patient 11/08/2024 5:14 PM EDT documented as of this encounter Care Teams Director Compensation Relationship Specialty Start Date End Date Laurie Gutierrez MD [address] [place] [address] PCP - General 12/09/23 Joshua Martínez MD [address] [place] [phone] Consulting Physician Radiation Oncology 09/19/24 documented as of this encounter
--- OUTSIDE RECORDS SUMMARY | 2025-01-04 11:47 | XMS_ITS | Encounter Summary ---
Author Organization Healthcare Address [address] [place] [address] Care Team Providers Care Extruding Department Supervisor Name Role Phone Laurie Gutierrez MD Primary Care Provider [phone] Joshua Martínez MD Unavailable Encounter Details Date [...] drink first t laurie in the morning (EYE-PUBLIC AFFAIRS OFFICER) to steady your nerves or to [...] Office Visit [facility] [address] [place] [address] Lia Barnes, TATTOO TECHNICIAN [address] [facility] [address] [place] [address] 01/10/2025 9:00 AM EDT Clinical Support Pav [facility] [address] [facility], 2nd [place] [address] 01/10/2025 9:40 AM EDT Office Visit [facility] [address] [facility], [address]nd [place] [address] Satnam Colvin MD [address] [facility] [address] [place] [address] 01/10/2025 12:00 PM EDT Appointment [facility] 1 [address] [place] [address] 01/11/2025 3:30 PM EDT Appointment [facility] 1 [address] [place] [address] 01/12/2025 3:30 PM EDT Appointment [facility] 2 [address] [place] [address] 01/19/2025 9:20 AM EDT Appointment [facility] [address], 1st [place] [address] 01/19/2025 10:45 AM EDT Office Visit [place] [facility] [address], [address]st [place] [address] Abhilash Bangura MD [address] [place] [address] 01/26/2025 4:30 PM EDT Office Visit [facility] [address] [facility] [place] [address] Lia Barnes, TATTOO TECHNICIAN [address] [facility] [address] [place] [address] 03/08/2025 1:00 PM EDT Office Visit [facility] [place] [address] [facility]. 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, SECURITY DELIVERY SPECIALIST 10/26/2024 10/31/2024 Assessment Noted Time PHQ-9 Depression Total Score: 0 09/01/19 25 3:26 PM EDT A fall risk assessment has been complete d for the patient 11/10/2024 2:43 PM EDT A Body Mass Index follow-up plan has been documented for the patient 11/08/2024 5:14 PM EDT documented as of this encounter Care Teams Extruding Department Supervisor Relationship Specialty Start Date End Date Laurie Gutierrez MD [address] [place] [address] PCP - General 12/09/23 Joshua Martínez MD [address] [place] [phone] Consulting Physician Radiation Oncology 09/19/24 documented as of this encounter
--- OUTSIDE RECORDS SUMMARY | 2025-01-04 11:47 | XMS_ITS | Encounter Summary ---
Author Organization Healthcare Address [address] [place] [address] Care Team Providers Care Silver Lap Machine Tender Name Role Phone Laurie Gutierrez MD Primary Care Provider [phone] Joshua Martínez MD Unavailable Reason for Visit * Reason Comments Distress Screen Follow-up Encounter Details Date Type Department Care Team ([facility] st Contact Info) Description 01/04/2025 Social Work Psych Oncology [address] [place] [address] Mariah Rowley Social History Tobacco Use Types [...] first t laurie in the morning (EYE-WELT STITCH CLEANER) to steady your nerves or to [...] * Progress Notes - Mariah Rowley - 01/04/2025 10:25 AM EDT Encounter Type: Distress Follow Up - Phone Call Disease Status: Established Patient Clinic Location: [facility] Disease Type: Lung & Bronchus, Brain & Other Nervous System Intervention Level: 1 Units (1 unit = 15 minutes): 1 Narrative: GENERAL HELPER attempted to reach pt regarding DT screen. Pt did not answer phone. Left VM with contact information and encouraged pt to reach out if pt has any needs, questions, or concerns. Mariah Rowley, PHYSICAL TRAINER, GENERAL HELPER [facility] Psych-Oncology Services documented in this encounter Plan of Treatment Upcoming Encounters Date Type Department Care Team (Late st Contact Info) Description 01/05/2025 1:00 PM EDT Office Visit [facility] [address] [facility] [place] [address] Lia Barnes, CATTLE DIPPER [address] [facility] [address] [place] [address] 01/10/2025 9:00 AM EDT Clinical Support Pav [facility] Respiratory [address] [facility], 2nd [place] [address] 01/10/2025 9:40 AM EDT Office Visit [facility] Res[facility] [address] [facility], 2nd [place] [address] Satnam Colvin MD 800 [facility] [address] [place] [address] 01/10/2025 12:00 PM EDT Appointment [facility] 1 [address] [place] [address] 01/11/2025 3:30 PM EDT Appointment [facility] 1 [address] [place] [address] 01/12/2025 3:30 PM EDT Appointment [facility] 2 [address] [place] [address] 01/19/2025 9:20 AM EDT Appointment [facility] Rad[facility] [address], 1st [place] [address] 01/19/2025 10:45 AM EDT Office Visit [facility] [address], [address]st [place] [address] Abhilash Bangura MD [address] [place] [address] 01/26/2025 4:30 PM EDT Office Visit [facility] [address] [facility] [place] [address] Lia Barnes, CATTLE DIPPER [address] [facility] [address] [place] [address] 03/08/2025 1:00 PM EDT Office Visit [facility] [place] 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 12/16/2024 12/22/2024 Assessment Noted Time PHQ-9 Depression Total Score: 0 09/01/19 3:26 PM EDT A fall risk assessment has been complete d for the patient 01/03/2025 9:25 AM EDT A Body Mass Index follow-up plan has been documented for the patient 12/23/2024 8:17 AM EDT documented as of this encounter Care Teams Silver Lap Machine Tender Relationship Specialty Start Date End Date Laurie Gutierrez MD [address] [place] [address] PCP - General 12/09/23 Joshua Martínez MD [address] [place] [address] Consulting Physician Radiation Oncology 09/19/24 documented as of this encounter
--- OUTSIDE RECORDS SUMMARY | 2025-01-04 11:47 | XMS_ITS ---
Author Organization [facility] Address [address] [place] [address] Care Team Providers Care Rn Hospice Name Role Phone Laurie Gutierrez MD Primary Care Provider [phone] Joshua Martínez MD Unavailable Active Problems Problem [...] 10/04/2024 Plan Provider:Satnam Colvin MD Linked Problems Small cell lung cancer (CMS/ HCC) Treatment Medications No medications scheduled. CARBOplatin / Etoposide Daily x 3 / Atezolizumab Every 21 Days* Plan Start Date: 10/03/2024 Plan Provider:Satnam Colvin MD Linked Problems Small cell lung cancer (CMS/ HCC) Treatment Medications Current Day (Day 1 , Cycle 3 - Planned for 01/10/2025) Next Day (Day 2, Cycle 3 - Planned for 01/11/2025) Mctkwvquuukz-Ewccbmsgtquuy-s qjs (Tecentriq Hybreza) 1875-26213 MG-UT/15ML solutionCARBOplatin (Paraplatin)CARBOplatin (Paraplatin) IVPB (by AUC: GOG-COCKCROFT GAULT)Etoposide (Toposar)etoposide (Vepesid) IVPB Atezolizumab-Hyaluronidase- tqjs (Tecentriq Hybreza) 1875-32586 MG-UT/15ML injection solution 1,875 mgCARBOplatin (Paraplatin) 430 mg in sodium chloride 0.9 % 250 mL IVPBetoposide (Toposar) 220 mg in sodium chloride 0.9 % 500 mL IVPB etoposide (Toposar) 220 mg in sodium chloride 0.9 % 500 mL IVPB IV Fluid NO Electrolytes* Plan Start Date:11/29/2024 Plan Provider:Satnam Colvin MD Linked Problems Small cell lung cancer (CMS/ HCC) Treatment Medications No medications scheduled. Past Treatment and Therapy Plans No past [...] Automatic Entry Manual Entr y Fluoro Time 17.7 minutes 0.3 minutes 17.4 minutes Air Kerma 120.2 mGy 19 mGy 101.2 mGy Air Kerma Area Product 8.08 Gy-cm2 0 Gy-cm2 8.08 Gy-cm2 Air Kerma Area Product 489.97 Gym 148.49 Gym 341.48 Gym Resolved Problems Problem Noted Date Diagnosed [...]
--- OUTSIDE RECORDS SUMMARY | 2025-01-04 11:47 | XMS_ITS | Encounter Summary ---
Author Organization [facility] Address [address] [place] [address] Care Team Providers Care Customs Inspector Name Role Phone Laurie Gutierrez MD Primary Care Provider [phone] Joshua Martínez MD Unavailable Jasmina Smith LPN Unavailable Unavailable Paradise Pacheco RN Unavailable Unavailab Sabine Crowe LOADING SUPERVISOR Unavailable Unavailable Encounter Details Date Type Department Care Team (Late st Contact Info) Description 06/10/2024 Orders Only External Location [address] [place] [id number] Provider, External Social History Tobacco Use Types [...] a skilled nursing (including now)? No 11/20/2023 CAGE ASSESSMENT Answer [...] drink first t laurie in the morning (EYE-FORKLIFT TECHNICIAN) to steady your nerves or to [...] PM EDT Office Visit [facility] [address] [place] [address] Lia Barnes, MARKET RESEARCH INTERN 3101 [facility] 100 [place] [address] 01/10/2025 9:00 AM EDT Clinical Support Pav [facility] Res[facility] 800 [facility], 2nd [place] [address] 01/10/2025 9:40 AM EDT Office Visit Pav [facility] Res[facility] 800 [facility], 2nd [place] [address] Satnam Colvin MD [address] [facility] [address] [place] [address] 01/10/2025 12:00 PM EDT Appointment [facility] 1 [address] [place] [address] 01/11/2025 3:30 PM EDT Appointment [facility] 1 [address] [place] [address] 01/12/2025 3:30 PM EDT Appointment [facility] 2 [address] [place] [address] 01/19/2025 9:20 AM EDT Appointment [facility] S Radiology [address], 1st [place] [address] 01/19/2025 10:45 AM EDT Office Visit [place] [facility] [address], 1st [place] [address] Abhilash Bangura MD [address] [place] [address] 01/26/2025 4:30 PM EDT Office Visit [facility] [address] [facility] [place] [address] Lia Barnes, MARKET RESEARCH INTERN 3101 [facility] [address] [place] [address] 03/08/2025 1:00 PM EDT Office Visit [facility] [place] [address] [facility]. 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 12/16/2024 12/22/2024 Assessment Noted Time A fall risk assessment has been complete d for the patient 01/27/2024 11:18 AM EDT A Body Mass Index follow-up plan has been documented for the patient 01/27/2024 12:19 PM EDT documented as of this encounter Care Teams Customs Inspector Relationship Specialty Start Date End Date Laurie Gutierrez MD [address] [place] [address] PCP - General 12/09/23 Joshua Martínez MD [address] [place] [address] Consulting Physician Radiation Oncology 09/19/24 Jasmina Smith LPN VALUE-BASED [place] [address] TCM Nurse 10/19/24 11/01/24 Paradise Pacheco, RN CH-VASCULAR & INTERVENTIONAL RADIOLOGY Registered Nurse 11/21/24 11/21/24 Sabine Morales LPN TCM Nurse 11/23/24 12/23/24 documented as of this encounter
--- OUTSIDE RECORDS SUMMARY | 2025-01-04 11:51 | XMS_ITS | Encounter Summary ---
Author Organization [facility] Address [address] [place] [address] Care Team Providers Care Sheet Hanger Name Role Phone Laurie Gutierrez MD Primary Care Provider [phone] Joshua Martínez MD Unavailable Paradise Pacheco RN Unavailable Unavailab le Encounter Details Date Type Department Care Team (Late st Contact Info) Description 11/18/2024 Orders Only External Location [address] [place] [address] Nuria Lunsford PA [address] [place] [address] Social History Tobacco Use Types Packs/Day [...] drink first t laurie in the morning (EYE-GASOLINE FINISHER) to steady your nerves or to get [...] ([facility] st Contact Info) Description 01/05/2025 1:00 PM EDT Office Visit [facility] [address]01 [facility] [place] [address] Lia Barnes, PRODUCTION CLERK 3101 [facility] [address] [place] [address] 01/10/2025 9:00 AM EDT Clinical Support Pav CC Head, Neck & Respiratory 800 [facility], 2nd [place] [address] 01/10/2025 9:40 AM EDT Office Visit Pav [facility] Head[facility] Neck & Respiratory 800 [facility], 2nd [place] [address] Satnam Colvin MD 800 [facility] [address] [place] [address] 01/10/2025 12:00 PM EDT Appointment [facility] 1 [address] [place] [address] 01/11/2025 3:30 PM EDT Appointment [facility] 1 [address] [place] [address] 01/12/2025 3:30 PM EDT Appointment [facility] 2 [address] [place] [address] 01/19/2025 9:20 AM EDT Appointment P[facility] S Radiology [address], [address] [place] [address] 01/19/2025 10:45 AM EDT Office Visit [place] [facility] [address], 1st [place] [address] Abhilash Bangura MD [address] [place] [address] 01/26/2025 4:30 PM EDT Office Visit [facility] [address]01 [facility] [place] [address] Lia Barnes, PRODUCTION CLERK [address] [facility] [address] [place] [address] 03/08/2025 1:00 PM EDT Office Visit [facility] [place] 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, FAMILY AND CONSUMER SCIENCE PROFESSOR 10/26/2024 10/31/2024 Assessment Noted Time PHQ-9 Depression Total Score: 0 09/01/19 25 3:26 PM EDT A fall risk assessment has been complete d for the patient 11/10/2024 2:43 PM EDT A Body Mass Index follow-up plan has been documented for the patient 11/08/2024 5:14 PM EDT documented as of this encounter Care Teams Sheet Hanger Relationship Specialty Start Date End Date Laurie Gutierrez MD [address] [place] [address] PCP - General 12/09/23 Joshua Martínez MD [address] [place] [address] Consulting Physician Radiation Oncology 09/19/24 Paradise Pacheco, RN CH-VASCULAR & INTERVENTIONAL RADIOLOGY Registered Nurse 11/21/24 11/21/24 documented as of this encounter
--- OUTSIDE RECORDS SUMMARY | 2025-01-04 11:51 | XMS_ITS | Encounter Summary ---
Author Organization Healthcare Address [address] [place] [address] Care Team Providers Care Poultry Veterinarian Name Role Phone Laurie Gutierrez MD Primary Care Provider [phone] Joshua Martínez MD Unavailable Paradise Pacheco RN Unavailable Unavailab le Reason for Visit * Reason Comments Link Encounter Details Date Type Department Care Team (Late st Contact Info) Description 11/21/2024 Patient Outreach [facility] [address], [address] [place] [address] Paradise Pacheco, RN CH-VASCULAR & [...] drink first t laurie in the morning (EYE-MUSIC VIDEO PRODUCER) to steady your nerves or to [...] Miscellaneous Notes * Progress Notes - Paradise Pacheco RN - 11/21/2024 8:05 AM EDT Patient identified for LINK program. Program was closed at the time of review. Following chart review, patient determined to be ineligible based on program criteria. documented in this encounter Plan of Treatment Upcoming Encounters Date Type Department Care Team ([facility] st Contact Info) Description 01/05/2025 1:00 PM EDT Office Visit [facility] [address] [place] [address] Lia Barnes, TELE GROUT SEWER LINE REPAIRER 3101 [facility] 100 [place] [address] 01/10/2025 9:00 AM EDT Clinical Support Pav CC Head, Neck & Respiratory 800 [facility], 2nd [place] [address] 01/10/2025 9:40 AM EDT Office Visit Pav [facility] Head[facility] Neck & Respiratory 800 [facility], 2nd [place] [address] Satnam Colvin MD 800 [facility] N[facility] [address] [place] [address] 01/10/2025 12:00 PM EDT Appointment [facility] 1 [address] [place] [address] 01/11/2025 3:30 PM EDT Appointment [facility] 1 [address] [place] [address] 01/12/2025 3:30 PM EDT Appointment [facility] 2 [address] [place] [address] 01/19/2025 9:20 AM EDT Appointment [facility] S Radiology [address], 1st [place] [address] 01/19/2025 10:45 AM EDT Office Visit [place] [facility] [address], 1st [place] [address] Abhilash Bangura MD [address] [place] [address] 01/26/2025 4:30 PM EDT Office Visit [facility] [address] [place] [address] Lia Barnes, TELE GROUT SEWER LINE REPAIRER [address] [facility] [address] [place] [address] 03/08/2025 1:00 PM EDT Office Visit [facility] [place] 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, FIRER LOW PRESSURE 10/26/2024 10/31/2024 Assessment Noted Time PHQ-9 Depression Total Score: 0 09/01/19 25 3:26 PM EDT A fall risk assessment has been complete d for the patient 11/10/2024 2:43 PM EDT A Body Mass Index follow-up plan has been documented for the patient 11/22/2024 4:27 PM EDT documented as of this encounter Care Teams Poultry Veterinarian Relationship Specialty Start Date End Date Laurie Gutierrez MD [address] [place] [address] PCP - General 12/09/23 Joshua Martínez MD [address] [address] Consulting Physician Radiation Oncology 09/19/24 Paradise Pacheco, RN CH-VASCULAR & INTERVENTIONAL RADIOLOGY Registered Nurse 11/21/24 11/21/24 documented as of this encounter
--- OUTSIDE RECORDS SUMMARY | 2025-01-04 11:51 | XMS_ITS | Encounter Summary ---
Author Organization Healthcare Address [address] [place] [address] Care Team Providers Care Agent Name Role Phone Laurie Gutierrez MD Primary Care Provider [phone] Joshua Martínez MD Unavailable Encounter Details Date [...] time in the past 12 m [facility], were you homeless or living [...] time in the past 12 m [facility], were you homeless or living [...] drink first t laurie in the morning (EYE-SCREENING REPRESENTATIVE) to steady your nerves or to get rid of a hangover? 0 10/27/2024 CAGE Questionnaire Score 0 025 Utilities Answer Date Recorded In the past 12 months has th e [employer], gas, oil, or water company threatened to [...] 1 Month) No 11/19/2024 6:48 PM EDT Gersno Pierre RN 6. Suicidal Behavior (Lifetime) No 5 6:48 PM EDT Flor Pierre RN documented as of this encounter Plan of Treatment Upcoming Encounters Date Type Department Care Team (Late st Contact Info) Description 01/05/2025 1:00 PM EDT Office Visit [facility] [address] [place] [address] Lia Barnes, ARRT TECHNOLOGIST [address] [facility] [address] [place] [address] 01/10/2025 9:00 AM EDT Clinical Support Pav CC Head, Neck & Respiratory 800 [facility], 2nd [place] [address] 01/10/2025 9:40 AM EDT Office Visit Pav [facility] Head, Neck & Respiratory 800 [facility], 2nd [place] [address] Satnam Colvin MD 800 [facility] [address] [place] [address] 01/10/2025 12:00 PM EDT Appointment [facility] 1 [address] [place] [address] 01/11/2025 3:30 PM EDT Appointment [facility] 1 [address] [place] [address] 01/12/2025 3:30 PM EDT Appointment [facility] 2 [address] [place] [address] 01/19/2025 9:20 AM EDT Appointment [facility] S Radiology [address], 1st [place] [address] 01/19/2025 10:45 AM EDT Office Visit [place] [facility] [address], 1st [place] [address] Abhilash Bangura MD [address] [place] [address] 01/26/2025 4:30 PM EDT Office Visit [facility] [address] [place] [address] Lia Barnes, ARRT TECHNOLOGIST [address] [facility] [address] [place] [address] 03/08/2025 1:00 PM EDT Office Visit [facility] [place] 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 ROLLER ASSEMBLER 10/26/2024 10/31/2024 Assessment Noted Time PHQ-9 Depression Total Score: 0 09/01/19 25 3:26 PM EDT A fall risk assessment has been complete d for the patient 11/10/2024 2:43 PM EDT A Body Mass Index follow-up plan has been documented for the patient 11/22/2024 4:27 PM EDT documented as of this encounter Care Teams Agent Relationship Specialty Start Date End Date Laurie Gutierrez MD [address] [place], [place] [phone] PCP - General 12/09/23 Joshua Martínez MD [address] [place] [address] Consulting Physician Radiation Oncology 09/19/24 documented as of this encounter
--- OUTSIDE RECORDS SUMMARY | 2025-01-04 11:51 | XMS_ITS | Encounter Summary ---
Author Organization [facility] Address [address] [place] [address] Care Team Providers Care Hospice Team Lead Name Role Phone Laurie Gutierrez MD Primary Care Provider [phone] Joshua Martínez MD Unavailable Paradise Pacheco RN Unavailable Unavailab le Encounter Details Date Type Department Care Team (Late st Contact Info) Description 11/18/2024 Orders Only External Location [address] [place] [address] Provider, External Social History Tobacco Use Types [...] drink first t laurie in the morning (EYE-CAKE CUTTER MACHINE) to steady your nerves or to [...] Office Visit [facility] 3101 [facility] [place] [address] Lia Barnes, CARBON FURNACE OPERATOR HELPER 3101 [facility] [address] [place] [address] 01/10/2025 9:00 AM EDT Clinical Support Pav CC Head[facility] Neck & Respiratory 800 [facility], 2nd [place] [address] 01/10/2025 9:40 AM EDT Office Visit Pav [facility] Head[facility] Neck & Respiratory 800 [facility], 2nd [place] [address] Satnam Colvin MD [address] [facility] [address] [place] [address] 01/10/2025 12:00 PM EDT Appointment [facility] 1 [address] [place] [address] 01/11/2025 3:30 PM EDT Appointment [facility] 1 [address] [place] [address] 01/12/2025 3:30 PM EDT Appointment [facility] 2 [address] [place] [address] 01/19/2025 9:20 AM EDT Appointment [facility] S Radiology [address], 1st [place] [address] 01/19/2025 10:45 AM EDT Office Visit [place] [facility] [address], 1st [place] [address] Abhilash Bangura MD [address] [place] [address] 01/26/2025 4:30 PM EDT Office Visit [facility] [address]01 [facility] [place] [address] Lia Barnes, SHARDA [address] [facility] [address] [place] [address] 03/08/2025 1:00 PM EDT Office Visit [facility] [place] [address] [place] [address] Teresita Oconnell MD [address] [place] [address] documented as of this encounter Procedures Procedure Name Priority Date/Time Associated Diagnosis Comments CT MSK OUTSIDE IMAGES 11/18/2024 8:50 PM EDT documented in this encounter Results * CT MSK OUTSIDE IMAGES (11/18/2024 8:50 PM EDT) Anatomical Region Laterality Modality Computed Tomogra phy 11/18/2024 8:50 PM EDT External Provider IMG CT PROCEDURES Final Result documented in this encounter Visit Diagnoses Not on filedocumented in this encounter Additional Health Concerns Infection Onset Date Last Indicated Resolved Time 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, QUILL MACHINE OPERATOR 10/26/2024 10/31/2024 Assessment Noted Time PHQ-9 Depression Total Score: 0 09/01/19 25 3:26 PM EDT A fall risk assessment has been complete d for the patient 11/10/2024 2:43 PM EDT A Body Mass Index follow-up plan has been documented for the patient 11/08/2024 5:14 PM EDT documented as of this encounter Care Teams Hospice Team Lead Relationship Specialty Start Date End Date Laurie Gutierrez MD [address] [place] [address] PCP - General 12/09/23 Joshua Martínez MD [address] [place] [address] Consulting Physician Radiation Oncology 09/19/24 Paradise Pacheco RN CH-VASCULAR & INTERVENTIONAL RADIOLOGY Registered Nurse 11/21/24 11/21/24 documented as of this encounter
--- OUTSIDE RECORDS SUMMARY | 2025-01-04 11:52 | XMS_ITS | Encounter Summary ---
Author Organization Healthcare Address [address] [place] [address] Care Team Providers Care Window Shade Estimator Name Role Phone Laurie Gutierrez MD Primary Care Provider [phone] Joshua Martínez MD Unavailable Jasmina Smith GREENS PICKER Unavailable Unavailable Reason for Visit * Reason Onset Date Comments HCN - Patient Message 10/12/2024 Call back Encounter Details Date Type Department Care Team (Late st Contact Info) Description 10/12/2024 Telephone [facility] [address], 1st [place] [address] Abhilash Bangura MD [address] [place] [address] HCN - Patient Message (Call [...] drink first t laurie in the morning (EYE-WASHER OPERATOR) to steady your nerves or to [...] optimal time of day to reach caller: [phone] anytime Note: Please do not reply to [...] Description 01/05/2025 1:00 PM EDT Office Visit [facility] [address] [place] [address] Lia Barnes, EARLY INTERVENTIONIST 3101 [facility] [address] [place] [address] 01/10/2025 9:00 AM EDT Clinical Support [facility] Respiratory 800 [facility], 2nd [place] [address] 01/10/2025 9:40 AM EDT Office Visit [facility] Head[facility] Neck [facility] Respiratory 800 [facility], 2nd [place] [address] Satnam Colvin MD 800 [facility] [address] [place] [address] 01/10/2025 12:00 PM EDT Appointment [facility] 1 [address] [place] [address] 01/11/2025 3:30 PM EDT Appointment [facility] 1 [address] [place] [address] 01/12/2025 3:30 PM EDT Appointment [facility] 2 [address] [place] [address] 01/19/2025 9:20 AM EDT Appointment [facility] [address], 1st [place] [address] 01/19/2025 10:45 AM EDT Office Visit [facility] [address], [address] [place] [address] Abhilash Bangura MD [address] [place] [address] 01/26/2025 4:30 PM EDT Office Visit [facility] [address] [place] [address] Lia Barnes, EARLY INTERVENTIONIST [address] [facility] [address] [place] [address] 03/08/2025 1:00 PM EDT Office Visit [facility] [place] 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, HOG KILLER 10/26/2024 10/31/2024 Assessment Noted Time PHQ-9 Depression Total Score: 0 09/01/19 25 3:26 PM EDT A fall risk assessment has been complete d for the patient 10/06/2024 2:29 PM EDT A Body Mass Index follow-up plan has been documented for the patient 10/18/2024 11:56 AM EDT documented as of this encounter Care Teams Window Shade Estimator Relationship Specialty Start Date End Date Laurie Gutierrez MD [address] [place] [address] PCP - General 12/09/23 Joshua Martínez MD [address] [place] [address] Consulting Physician Radiation Oncology 09/19/24 Jasmina Smith LPN VALUE-BASED [place] [address] TCM Nurse 10/19/24 11/01/24 documented as of this encounter
--- OUTSIDE RECORDS SUMMARY | 2025-01-04 11:52 | XMS_ITS | Encounter Summary ---
Author Organization Healthcare Address [address] [place] [address] Care Team Providers Care Dermatology Procedural Physician Name Role Phone Laurie Gutierrez MD Primary Care Provider [phone] Joshua Martínez MD Unavailable Encounter Details Date [...] drink first t laurie in the morning (EYE-OIL WELL PERFORATOR OPERATOR) to steady your nerves or to get rid of a hangover? 0 10/27/2024 CAGE Questionnaire Score 0 025 Utilities Answer Date Recorded In the past 12 months has th e [employer] gas, oil, or water company threatened to [...] PM EDT Office Visit [facility] [address]01 [place] [address] Lia Barnes, SPEECH LANG PATH 3101 [facility] [address] [place] [address] 01/10/2025 9:00 AM EDT Clinical Support [facility] 800 [facility], 2nd [place] [address] 01/10/2025 9:40 AM EDT Office Visit [facility] 800 [facility], 2nd [place] [address] Satnam Colvin MD 800 [facility] [address] [place] [address] 01/10/2025 12:00 PM EDT Appointment [facility] 1 [address]44 [place] [address] 01/11/2025 3:30 PM EDT Appointment [facility] 1 [address] [place] [address] 01/12/2025 3:30 PM EDT Appointment [facility] 2 [address] [place] [address] 01/19/2025 9:20 AM EDT Appointment [facility] S Radiology [address], 1st [place] [address] 01/19/2025 10:45 AM EDT Office Visit [place] [facility] [address], 1st [place] [address] Abhilash Bangura MD [address] [place] [address] 01/26/2025 4:30 PM EDT Office Visit [facility] [address] [place] [address] Lia Barnes, SPEECH LANG PATH 3101 [facility] [address] [place] [address] 03/08/2025 1:00 PM EDT Office Visit [facility] [place] Wenceslao 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, REGISTRY NP 10/26/2024 10/31/2024 Assessment Noted Time PHQ-9 Depression Total Score: 0 09/01/19 25 3:26 PM EDT A fall risk assessment has been complete d for the patient 11/10/2024 2:43 PM EDT A Body Mass Index follow-up plan has been documented for the patient 11/08/2024 5:14 PM EDT documented as of this encounter Care Teams Dermatology Procedural Physician Relationship Specialty Start Date End Date Laurie Gutierrez MD [address] [place] [address] PCP - General 12/09/23 Joshua Martínez MD [address] [place] [address] Consulting Physician Radiation Oncology 09/19/24 documented as of this encounter
--- OUTSIDE RECORDS SUMMARY | 2025-01-04 11:52 | XMS_ITS | Encounter Summary ---
Author Organization Healthcare Address [address] [place] [address] Care Team Providers Care Physical Therapy Coordinator Name Role Phone Laurie Gutierrez MD Primary Care Provider [phone] Joshua Martínez MD Unavailable Sabine Morales LPN Unavailable Unavailable Reason for Visit * Reason Comments TCM Call Encounter Details Date Type Department Care Team (Late st Contact Info) Description 11/25/2024 Patient Outreach POP[facility] [address], [address] [place] [address] Sabine Morales LPN TCM Call [...] [facility] (including now)? No 12/12/2024 CAGE ASSESSMENT Answer [...] drink first t laurie in the morning (EYE-OVERLOCK SLEEVE SETTER) to steady your nerves or to [...] one occasion? Never 11/29/2024 11:06 AM EDT Kasandar Riley R * Calculated C-SSRS Risk Score (Lifetime/Recent) Answer [...] Catrina Pierre documented as of this encounter Miscellaneous Notes [...] 01/05/2025 1:00 PM EDT Office Visit [facility] [address] [place] [address] Lia Barnes, SANDAL PARTS ASSEMBLER 3101 [facility] 100 [place] [address] 01/10/2025 9:00 AM EDT Clinical Support Pav [facility] Res[facility] 800 [facility] 2nd [place] [address] 01/10/2025 9:40 AM EDT Office Visit Pav [facility] Res[facility] 800 [facility] [address] [place] [address] Satnam Colvin MD 800 [facility] 134 [place] [address] 01/10/2025 12:00 PM EDT Appointment [facility] 1 [address] [place] [address] 01/11/2025 3:30 PM EDT Appointment [facility] 1 [address] [place] [address] 01/12/2025 3:30 PM EDT Appointment [facility] 2 [address] [place] [address] 01/19/2025 9:20 AM EDT Appointment [facility] S Radiology [address] [address] 01/19/2025 10:45 AM EDT Office Visit [place] [facility] [address], 1st [place] [address] Abhilash Bangura MD [address] [place] [address] 01/26/2025 4:30 PM EDT Office Visit [facility] 3101 [facility] [place] [address] Lia Barnes, SANDAL PARTS ASSEMBLER [address] [facility] [address] [place] [address] 03/08/2025 1:00 PM EDT Office Visit [facility] [place] Wenceslao 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
--- OUTSIDE RECORDS SUMMARY | 2025-01-04 11:52 | XMS_ITS | Encounter Summary ---
Author Organization Healthcare Address [address] [place] [address] Care Team Providers Care Stand Up Comedian Name Role Phone Laurie Gutierrez MD Primary Care Provider [phone] Joshua Martínez MD Unavailable Paradise Pacheco RN Unavailable Unavailab le Encounter Details Date Type Department Care Team (Late st Contact Info) Description 11/15/2024 Orders Only External Location [address] [place] [address] Regina Katz, WATERWAY TRAFFIC CHECKER [address] [place] [address] Social History Tobacco Use Types [...] drink first t laurie in the morning (EYE-FOOD STYLIST) to steady your nerves or to get [...] 1:00 PM EDT Office Visit [facility] [address]01 [place] [address] Lia Barnes, WATERWAY TRAFFIC CHECKER 3101 [facility] [address] [place] [address] 01/10/2025 9:00 AM EDT Clinical Support Pav [facility] Respiratory 800 [facility], 2nd [place] [address] 01/10/2025 9:40 AM EDT Office Visit Pav [facility] Res[facility] 800 [facility], 2nd [place] [address] Satnam Colvin MD 800 [facility] Nuria Degroot [facility] [address] [place] [address] 01/10/2025 12:00 PM EDT Appointment [facility] 1 [address] [place] [address] 01/11/2025 3:30 PM EDT Appointment [facility] 1 [address] [place] [address] 01/12/2025 3:30 PM EDT Appointment [facility] 2 [address] [place] [address] 01/19/2025 9:20 AM EDT Appointment [facility] S Radiology [address], [address] [place] [address] 01/19/2025 10:45 AM EDT [facility] [address], 1st [place] [address] Abhilash Bangura MD [address] [place] [address] 01/26/2025 4:30 PM EDT Office Visit [facility] [address] [facility] [place] [address] Lia Barnes APRN [address] [facility] [address] [place] [address] 03/08/2025 1:00 PM EDT Office Visit [facility] [place] [address] [place] [address] Teresita Oconnell MD [address] [place] [address] documented as of this encounter Procedures Procedure Name Priority Date/Time Associated Diagnosis Comments XR OUTSIDE IMAGES 11/15/2024 2:42 PM EDT documented in this encounter Results * XR OUTSIDE IMAGES (11/15/2024 2:42 PM EDT) Anatomical Region Laterality Modality Radiographic Carolyne ging 11/15/2024 2:42 PM EDT Regina Katz WATERWAY TRAFFIC CHECKER IMG XR PROCEDURES Final Res ult documented in this encounter Visit Diagnoses Not on filedocumented in this encounter Additional Health Concerns Infection Onset Date Last Indicated Resolved Time 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, TORCH STRAIGHTENER 10/26/2024 10/31/2024 Assessment Noted Time PHQ-9 Depression Total Score: 0 09/01/19 25 3:26 PM EDT A fall risk assessment has been complete d for the patient 11/10/2024 2:43 PM EDT A Body Mass Index follow-up plan has been documented for the patient 11/08/2024 5:14 PM EDT documented as of this encounter Care Teams Stand Up Comedian Relationship Specialty Start Date End Date Laurie Gutierrez MD [address] [place] [address] PCP - General 12/09/23 Joshua Martínez MD [address] [place] [address] Consulting Physician Radiation Oncology 09/19/24 Paradise Pacheco, RN CH-VASCULAR & INTERVENTIONAL RADIOLOGY Registered Nurse 11/21/24 11/21/24 documented as of this encounter
--- OUTSIDE RECORDS SUMMARY | 2025-01-04 11:52 | XMS_ITS | Encounter Summary ---
Author Organization Healthcare Address [address] [place] [address] Care Team Providers Care Transformer Coil Winder Name Role Phone Laurie Gutierrez MD Primary Care Provider [phone] Joshua Martínez MD Unavailable Paradise Pacheco RN Unavailable Unavailab le Encounter Details Date Type Department Care Team (Late st Contact Info) Description 11/15/2024 Orders Only External Location [address] [place] [address] Regina Katz, BOOK MENDER [address] [place] [address] Social History Tobacco Use Types [...] drink first t laurie in the morning (EYE-METER TECHNICIAN) to steady your nerves or to [...] PM EDT [facility] 3101 [place] [address] Lia Barnes, BOOK MENDER 3101 [facility] [address] [place] [address] 01/10/2025 9:00 AM EDT Clinical Support Pav [facility] Head[facility]ck [facility] Respiratory 800 [facility], 2nd [place] [address] 01/10/2025 9:40 AM EDT Office Visit Pav [facility] Head[facility] Neck & Respiratory 800 [facility], 2nd [place] [address] Satnam Colvin MD 800 [facility] Nuria Degroot [facility] [address] [place] [address] 01/10/2025 12:00 PM EDT Appointment [facility] 1 [address] [place] [address] 01/11/2025 3:30 PM EDT Appointment [facility] 1 [address] [place] [address] 01/12/2025 3:30 PM EDT Appointment [facility] 2 [address] [place] [address] 01/19/2025 9:20 AM EDT Appointment [facility] Radiology [address], [address]st [place] [address] 01/19/2025 10:45 AM EDT Office Visit [place] [facility] [address], 1st [place] [address] Abhilash Bangura MD [address] [place] [address] 01/26/2025 4:30 PM EDT [facility] 3101 [facility] [place] [address] Lia Barnes APRN [address] [facility] [address] [place] [address] 03/08/2025 1:00 PM EDT Office Visit [facility] [place] [address] [place] [address] Teresita Oconnell MD [address] [place] [address] documented as of this encounter Procedures Procedure Name Priority Date/Time Associated Diagnosis Comments CT NEURO OUTSIDE IMAGES 11/15/2024 2:38 PM EDT documented in this encounter Results * CT NEURO OUTSIDE IMAGES (11/15/2024 2:38 PM EDT) Anatomical Region Laterality Modality Computed Tomogra phy 11/15/2024 2:38 PM EDT Regina Katz BOOK MENDER IMG CT PROCEDURES Final Res ult documented in this encounter Visit Diagnoses Not on filedocumented in this encounter Additional Health Concerns Infection Onset Date Last Indicated Resolved Time 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, FIRE 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 DIRECTOR 10/26/2024 10/31/2024 Assessment Noted Time PHQ-9 Depression Total Score: 0 09/01/19 25 3:26 PM EDT A fall risk assessment has been complete d for the patient 11/10/2024 2:43 PM EDT A Body Mass Index follow-up plan has been documented for the patient 11/08/2024 5:14 PM EDT documented as of this encounter Care Teams Transformer Coil Winder Relationship Specialty Start Date End Date Laurie Gutierrez MD [address] [place] [address] PCP - General 12/09/23 Joshua Martínez MD [address] [place] [phone] Consulting Physician Radiation Oncology 09/19/24 Paradise Pacheco RN CH-VASCULAR & INTERVENTIONAL RADIOLOGY Registered Nurse 11/21/24 11/21/24 documented as of this encounter
--- OUTSIDE RECORDS SUMMARY | 2025-01-04 11:52 | XMS_ITS | Encounter Summary ---
Author Organization Healthcare Address [address] [place] [address] Care Team Providers Care Correspondence School Instructor Name Role Phone Laurie Gutierrez MD Primary Care Provider [phone] Joshua Martínez MD Unavailable Encounter Details Date [...] any time in the past 12 m [facility], were you homeless or [...] any time in the past 12 m [facility], were you homeless or [...] drink first t laurie in the morning (EYE-CRYOLITE RECOVERY OPERATOR) to steady your nerves or to [...] 01/05/2025 1:00 PM EDT Office Visit [facility] [address] [place] [address] Lia Barnes, SCALLOP BINDER [address] [facility] [address] [place] [address] 01/10/2025 9:00 AM EDT Clinical Support Pav [facility] Head[facility] Neck & Respiratory 800 [facility], 2nd [place] [address] 01/10/2025 9:40 AM EDT Office Visit Pav [facility] Head[facility] Neck & Respiratory 800 [facility], 2nd [place] [address] Satnam Colvin MD 800 [facility] N[address] [place] [address] 01/10/2025 12:00 PM EDT Appointment [facility] 1 [address] [place] [address] 01/11/2025 3:30 PM EDT Appointment [facility] 1 [address] [place] [address] 01/12/2025 3:30 PM EDT Appointment [facility] 2 [address] [place] [address] 01/19/2025 9:20 AM EDT Appointment [facility] [address], 1st [place] [address] 01/19/2025 10:45 AM EDT Office Visit [place] [facility] [address], 1st [place] [address] Abhilash Bangura MD [address] [place] [address] 01/26/2025 4:30 PM EDT Office [facility] 3101 [facility] [place] [address] Lia Barnes, SCALLOP BINDER [address] [facility] [address] [place] [address] 03/08/2025 1:00 PM EDT Office Visit [facility] [place] Wenceslao 800 [facility]. 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, TIP BANDING MACHINE OPERATOR 10/26/2024 10/31/2024 Assessment Noted Time PHQ-9 Depression Total Score: 0 09/01/19 25 3:26 PM EDT A fall risk assessment has been complete d for the patient 11/10/2024 2:43 PM EDT A Body Mass Index follow-up plan has been documented for the patient 11/22/2024 4:27 PM EDT documented as of this encounter Care Teams Correspondence School Instructor Relationship Specialty Start Date End Date Laurie Gutierrez MD [address] [place] [address] PCP - General 12/09/23 Joshua Martínez MD [address] [place] [phone] Consulting Physician Radiation Oncology 09/19/24 documented as of this encounter
--- OUTSIDE RECORDS SUMMARY | 2025-01-04 11:52 | XMS_ITS | Encounter Summary ---
Author Organization Healthcare Address [address] [place] [address] Care Team Providers Care Plaque Maker Name Role Phone Laurie Gutierrez MD Primary Care Provider [phone] Joshua Martínez MD Unavailable Sabine Morales LPN Unavailable Unavailable Reason for Visit * Reason Comments TCM Call Encounter Details Date Type Department Care Team (Late st Contact Info) Description 11/24/2024 Patient Outreach POPULATION HEALTH [address], [address] [place] [address] Sabine Morales LPN TCM Call [...] any time in the past 12 m [facility], were you homeless or living [...] any time in the past 12 m [facility], were you homeless or living in a skilled nursing (including now)? No 11/21/2024 CAGE ASSESSMENT Answer [...] first t laurie in the morning (EYE-FINE PATCHER) to steady your nerves or to get [...] Discharge Date: 11/22/2024 Hospital Service: [facility] Discharge Diagnosis: Atrial fibrillation with [...] Team ([facility] st Contact Info) Description 01/05/2025 1:00 PM EDT Office Visit [facility] [address] [place] [address] Lia Barnes, LEAD JAVA PROGRAMMER 3101 [facility] 100 [place] [address] 01/10/2025 9:00 AM EDT Clinical Support Pav [facility] Neck & Respiratory 800 [facility], 2nd [place] [address] 01/10/2025 9:40 AM EDT Office Visit Pav [facility] Head[facility] Neck & Respiratory 800 [facility], 2nd [place] [address] Satnam Colvin MD 800 [facility] Nuria Degroot [facility] 134 [place] [address] 01/10/2025 12:00 PM EDT Appointment [facility] Infusion Clinic 1 [address] [place] [address] 01/11/2025 3:30 PM EDT Appointment [facility] Infusion Clinic 1 [address] [place] [address] 01/12/2025 3:30 PM EDT Appointment [facility] Infusion Clinic 2 [address] [place] [address] 01/19/2025 9:20 AM EDT Appointment [facility] S Radiology [address], 1st [place] [address] 01/19/2025 10:45 AM EDT Office Visit [place] [facility] [address], [address]st [place] [address] Abhilash Bangura MD [address] [place] [address] 01/26/2025 4:30 PM EDT Office Visit [facility] [address] [place] [address] Lia Barnes, LEAD JAVA PROGRAMMER 3101 [facility] [address] [place] [address] 03/08/2025 1:00 PM EDT Office Visit [facility] [place] Wenceslao 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, RESOURCE ROOM TEACHER 10/26/2024 10/31/2024 Assessment Noted Time PHQ-9 Depression Total Score: 0 09/01/19 3:26 PM EDT A fall risk assessment has been complete d for the patient 11/10/2024 2:43 PM EDT A Body Mass Index follow-up plan has been documented for the patient 11/22/2024 4:27 PM EDT documented as of this encounter Care Teams Plaque Maker Relationship Specialty Start Date End Date Laurie Gutierrez MD [address] [place] [address] PCP - General 12/09/23 Joshua Martínez MD [address] [place] [phone] Consulting Physician Radiation Oncology 09/19/24 Sabine Morales LPN TCM Nurse 11/23/24 12/23/24 documented as of this encounter
--- OUTSIDE RECORDS SUMMARY | 2025-01-04 11:52 | XMS_ITS | Encounter Summary ---
Author Organization Healthcare Address [address] [place] [address] Care Team Providers Care Pre School Teacher Name Role Phone Laurie Gutierrez MD Primary Care Provider [phone] Joshua Martínez MD Unavailable Paradise Pacheco RN Unavailable Unavailab le Encounter Details Date Type Department Care Team (Late st Contact Info) Description 11/15/2024 Orders Only External Location [address] [place] [address] Regina Katz, DICTIONARY EDITOR [address] [place] [address] Social History Tobacco Use Types [...] living in a residential (including now)? No 11/21/2024 CAGE ASSESSMENT Answer [...] drink first t laurie in the morning (EYE-RESTAURANT FLOOR MANAGER) to steady your nerves or to [...] Description 01/05/2025 1:00 PM EDT Office Visit [facility] [address] [place] [address] Lia Barnes, DICTIONARY EDITOR [address] [facility] [address] [place] [address] 01/10/2025 9:00 AM EDT Clinical Support Pav [facility] Head[facility] Neck & Respiratory 800 [facility], 2nd [place] [address] 01/10/2025 9:40 AM EDT Office Visit Pav [facility] Head[facility] Neck & Respiratory 800 [facility], 2nd [place] [address] Satnam Colvin MD 800 [facility] Nuria Degroot [facility] [address] [place] [address] 01/10/2025 12:00 PM EDT Appointment [facility] 1 [address] [place] [address] 01/11/2025 3:30 PM EDT Appointment [facility] 1 [address] [place] [address] 01/12/2025 3:30 PM EDT Appointment [facility] 2 [address] [place] [address] 01/19/2025 9:20 AM EDT Appointment [facility] [address] [place] [address] 01/19/2025 10:45 AM EDT Office Visit [place] [facility] [address], 1st [place] [address] Abhilash Bangura MD [address] [place] [address] 01/26/2025 4:30 PM EDT Office Visit [facility] 3101 [facility] [place] [address] Lia Barnes APRN [address] [facility] [address] [place] [address] 03/08/2025 1:00 PM EDT Office Visit [facility] [place] Wenceslao [address] [place] [address] Teresita Oconnell MD [address] [place] [address] documented as of this encounter Procedures Procedure Name Priority Date/Time Associated Diagnosis Comments XR MSK OUTSIDE IMAGES 11/15/2024 2:42 PM EDT documented in this encounter Results * XR MSK OUTSIDE IMAGES (11/15/2024 2:42 PM EDT) Anatomical Region Laterality Modality Radiographic Carolyne ging 11/15/2024 2:42 PM EDT Regina Katz DICTIONARY EDITOR IMG XR PROCEDURES Final Res ult documented in this encounter Visit Diagnoses Not on filedocumented in this encounter Additional Health Concerns Infection Onset Date Last Indicated Resolved Time 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, 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 10/26/2024 10/31/2024 Assessment Noted Time PHQ-9 Depression Total Score: 0 09/01/19 25 3:26 PM EDT A fall risk assessment has been complete d for the patient 11/10/2024 2:43 PM EDT A Body Mass Index follow-up plan has been documented for the patient 11/08/2024 5:14 PM EDT documented as of this encounter Care Teams Pre School Teacher Relationship Specialty Start Date End Date Laurie Gutierrez MD [address] [place] [address] PCP - General 12/09/23 Joshua Martínez MD [address] [place] [phone] Consulting Physician Radiation Oncology 09/19/24 Paradise Pacheco RN CH-VASCULAR & INTERVENTIONAL RADIOLOGY Registered Nurse 11/21/24 11/21/24 documented as of this encounter
--- OUTSIDE RECORDS SUMMARY | 2025-01-04 11:52 | XMS_ITS | Encounter Summary ---
Author Organization Healthcare Address [address] [place] [address] Care Team Providers Care Carpentry Instructor Name Role Phone Laurie Gutierrez MD Primary Care Provider [phone] Joshua Martínez MD Unavailable Sabine Morales LPN Unavailable Unavailable Reason for Visit * Reason Comments TCM Call Encounter Details Date Type Department Care Team (Late st Contact Info) Description 11/23/2024 Patient Outreach [facility] [address], [address] [place] [address] Sabine Morales LPN TCM Call [...] drink first t laurie in the morning (EYE-HOSPICE COORDINATOR) to steady your nerves or to [...] Date: 11/19/2024 Discharge Date: 11/22/2024 Hospital Service: [facility] Discharge Diagnosis: Atrial fibrillation with rapid [...] Upcoming Encounters Date Type Department Care Team ([facility] st Contact Info) Description 01/05/2025 1:00 PM EDT Office Visit [facility] [address] [place] [address] Lia Barnes, COMMUNICATIONS WRITER [address] [facility] [address] [place] [address] 01/10/2025 9:00 AM EDT Clinical Support [facility] [address] [facility], 2nd [place] [address] 01/10/2025 9:40 AM EDT Office Visit [facility] [address] [facility], [address]nd [place] [address] Satnam Colvin MD [address] [facility] Nuria Degroot [facility] [address] [place] [address] 01/10/2025 12:00 PM EDT Appointment [facility] Infusion Clinic [address] [place] [address] 01/11/2025 3:30 PM EDT Appointment [facility] Infusion Clinic [address] [place] [address] 01/12/2025 3:30 PM EDT Appointment [facility] Infusion Clinic [address] [place] [address] 01/19/2025 9:20 AM EDT Appointment [facility] S Radiology [address], [address] [place] [address] 01/19/2025 10:45 AM EDT [facility] Visit [facility] [address], [address] [place] [address] Abhilash Bangura MD [address] [place] [address] 01/26/2025 4:30 PM EDT Office Visit [facility] [address] [place] [address] Lia Barnes, COMMUNICATIONS WRITER [address] [facility] [address] [place] [address] 03/08/2025 1:00 PM EDT Office Visit [facility] Wenceslao 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 10/26/2024 10/31/2024 Assessment Noted Time PHQ-9 Depression Total Score: 0 09/01/19 3:26 PM EDT A fall risk assessment has been complete d for the patient 11/10/2024 2:43 PM EDT A Body Mass Index follow-up plan has been documented for the patient 11/22/2024 4:27 PM EDT documented as of this encounter Care Teams Carpentry Instructor Relationship Specialty Start Date End Date Laurie Gutierrez MD [address] [place] [address] PCP - General 12/09/23 Joshua Martínez MD [address] [place] [address] Consulting Physician Radiation Oncology 09/19/24 Sabine Morales LPN TCM Nurse 11/23/24 12/23/24 documented as of this encounter
--- NOTE | 2025-01-04 11:56 | CT_ITS ---
FINAL REPORT TECHNIQUE: Axial CT images were performed through the head. Coronal reformatted images were submitted. This study was performed with techniques to keep radiation doses as low as reasonably achievable (ALARA). Individualized dose reduction techniques using automated exposure control or adjustment of mA and/or kV according to the patient's size were employed. CLINICAL HISTORY: fall injury early am, recent brain surgery COMPARISON: 11/15/2024 FINDINGS: The craniotomy defect has been has been explanted. Overlying gross skin alejandro are identified. The previously noted subdural hematoma is significantly decreased in size however there is a persistent component in the left parafalcine region well seen on images 39 through 45, series 1001. The ventricles are normal in size. There is no mass or edema identified. There is no abnormal extra-axial fluid seen. There is lobular mucoperiosteal thickening in both maxillary sinuses and in the sphenoid sinus. IMPRESSION: Repeat surgery with interval resection of the craniotomy at the left vertex. Significant decrease in size in the previously noted hematoma. Chronic bilateral maxillary and sphenoid sinusitis. Reviewed, Interpreted and Dictated by Jeff Guadalupe MD Transcribed by Fabienne Simon Authenticated and [facility]
--- NOTE | 2025-01-04 11:57 | HMH.EDGENADL ---
Discharge Plan Disposition Patient Disposition: Home, Self-Care Prescriptions Prescriptions: No Action metoprolol tartrate 50 mg tablet 50 mg PO BID Xarelto 20 mg tablet 20 mg PO HS Patient Comments: TAKE 1 TABLET 1 TIME EACH DAY WITH FOOD Rx Instructions: on hold - resume december 01 per Stephanie Morin 160-9-4.8 mcg/actuation HFA aerosol inhaler 2 inh INHALATION BID Patient Comments: INHALE 2 PUFFS 2 TIMES EACH DAY fluoxetine 40 mg capsule 40 mg PO DAILY Patient Comments: TAKE 1 CAPSULE 1 TIME EACH DAY acetaminophen 325 mg tablet 650 mg PO Q6 PRN (Reason: Pain (Scale Score 1-3)) cetirizine 10 mg Tablet 10 mg PO DAILY ofloxacin 0.3 % drops 1 drp otic (ear) BID ferrous sulfate 325 mg (65 mg iron) Tablet 325 mg PO DAILY glucose 4 gram Tablet,Chewable 4 g PO Q15M PRN (Reason: Hypoglycemia) Rx Instructions: until symptoms of low blood sugar are controlled montelukast 10 mg Tablet 10 mg PO HS hydroxyzine HCl 25 mg Tablet 25 mg PO TID PRN (Reason: Anxiety) estradiol 0.01 % (0.1 mg/gram) Cream 2 g VAGINAL DAILY Rx Instructions: for 7 days melatonin 10 mg Tablet 10 mg PO HS PRN (Reason: Insomnia) magnesium oxide 400 mg magnesium Tablet 400 mg PO BID sitagliptin 50 mg Tablet 50 mg PO DAILY metformin 1,000 mg tablet 1,000 mg PO BID Patient Comments: TAKE 1 TABLET 2 TIMES EACH DAY WITH MEALS calcium carbonate-vitamin D3 600 mg-10 mcg (400 unit) tablet 1 tab PO DAILY Patient Comments: TAKE 1 TABLET 1 TIME EACH DAY WITH MEALS Jardiance 25 mg tablet 25 mg PO DAILY Patient Comments: TAKE 1 TABLET 1 TIME EACH DAY furosemide 40 mg Tablet 40 mg PO DAILY 30 Days Qty: 30 0RF spironolactone 25 mg Tablet 25 mg PO DAILY 30 Days Qty: 30 0RF doxycycline hyclate 100 mg capsule 100 mg PO DAILY 12 Days Qty: 12 0RF losartan 25 mg tablet 25 mg PO DAILY Qty: 30 0RF Rx Instructions: Started on 11/30/2024 due to mild JORGE. atorvastatin 40 MG tablet 40 mg PO HS Glucosamine Sulf-Chondroitin 1 EACH capsule 1 ea PO DAILY cyanocobalamin (vitamin B-12) 1,000 MCG tablet 1,000 mcg PO DAILY calcium carbonate 600 MG tablet 500 mg PO QID PRN (Reason: Heartburn) gabapentin 600 mg tablet 600 mg PO QID Patient Comments: TAKE 1 TABLET 4 TIMES EACH DAY pantoprazole 40 mg tablet,delayed release (DR/EC) 40 mg PO DAILY Patient Comments: TAKE 1 TABLET 1 TIME EACH DAY benzonatate 100 mg capsule 100 mg PO TID PRN (Reason: cough) Qty: 30 0RF Referrals Follow up/Referrals: Laurie Gutierrez MD [Primary Care Provider, Medical] - See instructions Activity Restrictions/Add. Instructions Additional Instructions/Restrictions: No definitive explanation for worsening of the chronic generalized weakness. Regarding the fall no obvious significant injury in the head extremities etc. Please follow-up with your primary care doctor and return with any significant worsening of symptoms Clinical Impressions Clinical Impression: Fall, Minor head injury, Sprain and strain of left wrist, Generalized weakness Print Language Print Language: Arabic Discharge ED Provider: Lizz Santos General Adult HPI General Chief complaint: Fall Stated complaint: AO-Fall 01/03 1300, Pain R side Time Seen by Provider: 01/04/25 11:43 Mode of Arrival: Ambulatory Source of Information: Patient and Relative Description of Symptoms (Recalled from ER Triage Doc. by RN): patient present to the ER today for evaluatin after a fall she took this morning at home trying to get in her car. the patient stated that her right leg gave out on her and she landed on her right arm and leg. patient stated she did not hit her head and no abraisions were noted on the patient. patient does have a PICC line infusing cefepime. History of Present Illness HPI narrative: Patient is a 64-year-old female presenting today with multiple complaints. She is a very poor historian her son is currently out of the room and I took history. She told nursing staff as well as son told nursing staff that she fell trying to get into the car today. 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 She has chronic right upper and right lower extremity weakness and uses assist devices to get around. Patient states that she has also left upper extremity discomfort particular in her wrist area. Denies any other symptoms to me but she has a poor historian having a hard time remembering details. Related Data Home Medications ?Medication ?Instructions ?Recorded ?Confirmed atorvastatin 40 mg tablet 40 mg PO HS 07/11/17 11/25/24 calcium carbonate 500 mg PO QID PRN Heartburn 07/11/17 11/24/24 cyanocobalamin (vitamin B-12) 1,000 mcg PO DAILY 07/11/17 11/24/24 1,000 mcg tablet glucosamine sulfate dipotassium Cl 1 ea PO DAILY [facility] 07/11/17 11/25/24 500 mg-chondroitin 400 mg capsule (Glucosamine Sulfate 2 KCL-Chondroitin) gabapentin 600 mg tablet 600 mg PO QID 02/01/23 11/25/24 pantoprazole 40 mg tablet,delayed 40 mg PO DAILY 02/01/23 11/25/24 release acetaminophen 325 mg tablet 650 mg PO Q6 PRN Pain (Scale Score 11/24/24 11/25/24 1-3) budesonide 160 mcg-glycopyr 9 2 inh inhalation BID 11/24/24 11/24/24 mcg-formot 4.8 mcg/actuation HFA inhaler (Breztri Aerosphere) cetirizine 10 mg tablet 10 mg PO DAILY 11/24/24 11/24/24 estradiol 0.01% (0.1 mg/gram) 2 g vaginal DAILY 11/24/24 11/25/24 vaginal cream ferrous sulfate 325 mg (65 mg 325 mg PO DAILY 11/24/24 11/25/24 iron) tablet fluoxetine 40 mg capsule 40 mg PO DAILY 11/24/24 11/25/24 glucose 4 gram chewable tablet 4 g PO Q15M PRN Hypoglycemia 11/24/24 11/25/24 hydroxyzine HCl 25 mg tablet 25 mg PO TID PRN Anxiety 11/24/24 11/25/24 magnesium oxide 400 mg PO BID 11/24/24 11/25/24 melatonin 10 mg tablet 10 mg PO HS PRN Insomnia 11/24/24 11/25/24 metoprolol tartrate 50 mg tablet 50 mg PO BID 11/24/24 11/24/24 montelukast 10 mg tablet 10 mg PO HS 11/24/24 11/25/24 ofloxacin 0.3 % ear drops 1 drp otic (ear) BID 11/24/24 11/25/24 rivaroxaban 20 mg tablet (Xarelto) 20 mg PO HS 11/24/24 11/24/24 sitagliptin 50 mg tablet 50 mg PO DAILY 11/24/24 11/25/24 calcium 600 mg (as 1 tab PO DAILY 11/25/24 11/25/24 carbonate)-vitamin D3 10 mcg (400 unit) tablet empagliflozin 25 mg tablet 25 mg PO DAILY 11/25/24 11/25/24 (Jardiance) metformin 1,000 mg tablet 1,000 mg PO BID 11/25/24 11/25/24 Previous Rx's ?Medication ?Instructions ?Recorded benzonatate 100 mg capsule 100 mg PO TID PRN cough #30 caps 03/19/24 doxycycline hyclate 100 mg capsule 100 mg PO DAILY 12 days #12 caps 11/26/24 furosemide 40 mg tablet 40 mg PO DAILY leg swelling 30 11/26/24 days #30 tabs losartan 25 mg tablet 25 mg PO DAILY #30 tabs 11/26/24 spironolactone 25 mg tablet 25 mg PO DAILY 30 days #30 tabs 11/26/24 Allergies Allergy/AdvReac Type Severity Reaction Status Date / Time cephalexin (From KEFLEX) Allergy Unknown Verified 04/19/23 09:37 lisinopril (LISINOPRIL) Allergy Unknown Verified 04/19/23 09:37 meloxicam (MELOXICAM) Allergy Unknown Verified 04/19/23 09:37 [facility] Disclaimer: The information contained in this section may have been updated after the patient was seen, as this information can be updated by other users. Medical History (Updated 01/04/25 @ 15:30 by Lizz Santos MD) Pneumonia GERD (gastroesophageal reflux disease) Diabetes Hyperlipidemia Obesity Falls Cellulitis of knee, left Insomnia COPD (chronic obstructive pulmonary disease) Chemotherapy management, encounter for Brain cancer Social History (Updated 11/25/24 @ 00:39 by Jaime Payan RN) Smoking Status: Never smoker second hand exposure: Yes alcohol intake: never current occupational status: unemployed Travel in the last 8 weeks?: None household members: spouse housing: house current occupational exposures/hazards: No caffeine: Yes Have you lived/traveled outside US in past 30 days?: No Contact w/someone who lives/traveled outside US past 30 days?: No Exposure to someone with infectious disease in past 14 days?: No Do you have a fever (greater than 100.4 F or 38 C)?: No Have you tested positive for COVID-19?: No Exposed to someone with COVID-19 in past 14 days?: No Do you have a sore throat?: No Do you have a cough?: No Do you have any weakness?: No Do you have any diarrhea?: No Are you experiencing any unusual bleeding?: No Do you have any muscle aches/pain?: No Do you have any abdominal pain?: No Are you experiencing loss of taste or smell?: No Other Medical History Have you received the Flu Vaccine for this season: No Have you received the Pneumonia Vaccine: No ROS Obtained: Yes All systems reviewed & no additional complaints except as documented Physical Exam General General appearance: alert and in no apparent distress Head Head exam: other (Fresh craniotomy scar with alejandro clean dry and intact no erythema or purulent drainage on the left side of the patient's parietal region) Chest Chest inspection: Absent tenderness Respiratory Respiratory exam: Present normal lung sounds bilaterally and respiratory distress Cardiovascular Cardiovascular exam: Present regular rate Extremities Exam Extremities exam: Present other (Right upper right lower extremity weakness no focal or obvious soft tissue swelling or injuries in her extremities) Neurological Exam Neurological exam: Present alert and oriented X3 Medical Decision Making Medical Records Screening: Per USPSTF and CDC recommendations, given the prevalence of disease in our region, it is our hospital?s policy to screen for HIV and viral Hepatitis for all patients aged 18 and over and those with ongoing risk factors. Garret Inquiry Pt receiving controlled substance: No Vital Signs: 01/04/25 11:39 01/04/25 11:46 01/04/25 12:15 Temperature 98.3 F Temperature Source Oral Pulse Rate 65 Pulse Rate [Right Radial] 68 Respiratory Rate 18 15 Blood Pressure Blood Pressure [Right Arm] 130/91 H Blood Pressure Mean Blood Pressure Mean [Right Arm] 104 Blood Pressure Source [Right Arm] Automatic Cuff Blood Pressure Position [Right Arm] Sitting 02 Sat by Pulse Oximetry 94 L 94 L 98 Oxygen Delivery Method Room Air Room Air 01/04/25 12:30 01/04/25 13:00 01/04/25 13:30 Temperature Temperature Source Pulse Rate 65 62 63 Pulse Rate [Right Radial] Respiratory Rate 16 14 17 Blood Pressure 104/46 L 116/56 L 119/56 L Blood Pressure [Right Arm] Blood Pressure Mean 77 69 Blood Pressure Mean [Right Arm] Blood Pressure Source [Right Arm] Blood Pressure Position [Right Arm] 02 Sat by Pulse Oximetry 98 97 97 Oxygen Delivery Method 01/04/25 14:00 01/04/25 14:03 01/04/25 14:30 Temperature Temperature Source Pulse Rate 69 72 Pulse Rate [Right Radial] Respiratory Rate 17 14 19 Blood Pressure 118/70 134/67 Blood Pressure [Right Arm] Blood Pressure Mean 81 Blood Pressure Mean [Right Arm] Blood Pressure Source [Right Arm] Blood Pressure Position [Right Arm] 02 Sat by Pulse Oximetry Oxygen Delivery Method 01/04/25 15:01 Temperature Temperature Source Pulse Rate Pulse Rate [Right Radial] Respiratory Rate 17 Blood Pressure 144/78 H Blood Pressure [Right Arm] Blood Pressure Mean Blood Pressure Mean [Right Arm] Blood Pressure Source [Right Arm] Blood Pressure Position [Right Arm] 02 Sat by Pulse Oximetry Oxygen Delivery Method Lab Data Lab results reviewed: Yes I reviewed the patient's lab results. Lab Results 01/04/25 12:34: WBC 8.1, RBC 2.89 L, Hgb 8.9 L, Hct 28.4 L, MCV 98.3, MCH 30.8, MCHC 31.3 L, RDW 20.4 H, Plt Count 133 L, MPV 9.7, Neut % (Auto) 73.0, Lymph % (Auto) 13.6, [place] % (Auto) 8.3, Eos % (Auto) 3.7, Baso % (Auto) 1.0, Neut # (Auto) 5.9, Lymph # (Auto) 1.1, [place] # (Auto) 0.7, Eos # (Auto) 0.3, Baso # (Auto) 0.1, Sodium 140, Potassium 4.1, Chloride 113 H, Carbon Dioxide 16 L, Anion Gap 15.1 H, BUN 21 H, Creatinine 1.30 H, Estimated Creat Clear 81, Estimated GFR 41 L, Est GFR ( Amer) 50 L, Glucose 120 H, Calcium 9.8, Phosphorus 3.4, Magnesium 1.4 L, Total Bilirubin 0.4, AST 23, ALT 12, Alkaline Phosphatase 98, Troponin I < 0.01, Total Protein 6.9, Albumin 3.3 L, Globulin 3.6 H, Albumin/Globulin Ratio 0.9 L 01/04/25 14:19: Urine Color Yellow, Urine Appearance Clear, Urine pH 6.0, Ur Specific [place] 1.015, Urine Protein 2+ A, Urine Glucose (UA) Negative, Urine Ketones Negative, Urine Blood 3+ A, Urine Nitrate Negative, Urine Bilirubin Negative, Urine Urobilinogen 0.2, Ur Leukocyte Esterase Negative, Urine RBC 3-5, Urine WBC 3-5, Ur Squamous Epith Cells 3-5, Urine Bacteria Trace 01/04/25 12:34 01/04/25 12:34 Orders (Tests/Meds): ED MEDICATIONS Discontinued Medications Generic Name Dose Route Start Last Admin Trade Name Lata PRN Reason Stop Dose Admin Lactated Ringer's 1,000 mls @ 999 mls/hr 01/04/25 12:30 01/04/25 15:20 Lactated Ringer's 1000 Ml Bag IV 01/04/25 13:30 Infused .Q1H1M [facility]GET[facility] Infusion ORDERS Category Date Time Status CT head/brain wo con Stat Cat Scan 01/04/25 11:56 Completed Forearm XR left 2 views [XR forearm LT 2V] Stat Exams 01/04/25 11:58 Completed Knee XR right 3 views [XR knee RT 3V] Stat Exams 01/04/25 14:09 Taken XR ankle RT min 3V Stat Exams 01/04/25 14:09 Taken CBC w/Auto Diff [Complete Blood Count Auto Diff] Stat Lab 01/04/25 12:34 Completed CMP [Comprehensive Metabolic Panel] Stat Lab 01/04/25 12:34 Completed Magnesium Stat Lab 01/04/25 12:34 Completed Phosphorous Stat Lab 01/04/25 12:34 Completed Trop I [Troponin I] Stat Lab 01/04/25 12:34 Completed Troponin I Q3H Lab 01/04/25 15:16 Received Troponin I Q3H Lab 01/04/25 18:30 Ordered UA [Urinalysis and Microscopic] Stat Lab 01/04/25 14:19 Completed Medical Decision Narrative: Patient with above history and physical she is a poor historian but it seems as if she is primarily concerned about her head after this fall. Will get a noncontrasted CT scan. She does have some mild left wrist discomfort but no obvious abnormalities from a soft tissue standpoint in any of her extremities she has no chest abdomen or pelvis or neck pain as well. Unclear to me as to whether or not she had any preceding symptoms other than just a mechanical fall today. Her son is not in the room and at the moment I have not currently been able to have a conversation with him regarding any other symptoms that led up to today. At the moment I will presume that she was at her baseline given the fact that she has right-sided weakness that is chronic associated with this brain tumor and that she fell today likely from a mechanical standpoint but we will confirm with him once he arrives. In the meantime we will get a CT scan of her head plain film of the left forearm and reassess. Reassessment 1223 patient's son showed up and told me she has been chronically weak and laying in bed for several months however she is little bit worse than she has been at baseline. He also tells me that she had a bone flap infection and that she is getting cefepime through her PICC line but that is significantly improved from the past. He thinks that she has had significant decrease in p.o. intake over the last several days and that she may be dehydrated therefore I will escalate her workup to include electrolytes and other causes of potential generalized weakness. Reassessment 2:10 PM the scan of the patient's head performed I personally interpreted which shows improvement in hematoma formation in the past no obvious significant vasogenic edema no recurrence of tumor or acute worsening blood. Labs essentially unremarkable from emergency standpoint still pending urinalysis at the moment. Nothing to definitively explain patient's generalized weakness which seems to be chronic. Hemoglobin is near her baseline. On serial assessments patient is now complaining of right knee and ankle pain. She is a very poor historian from both the history and physical exam standpoint but will get plain films of the knee and ankle and reassess. Reassessment 3:30 PM patient remains very stable x-rays of her right knee and ankle from my personal interpretation show no obvious fractures or dislocations. Patient is stable for outpatient follow-up no obvious urinary tract infection she did have some trace blood in her urine but this was a catheterized sample possibly traumatic negative for leuks and nitrates. Overall my interpretation is that this patient has significant deconditioning of the last several months which manifested itself in a fall today with no obvious injuries. She may have been mildly dehydrated as her anion gap is mildly elevated with a slightly depressed bicarb but she was given IV fluids and no other significant endorgan damage noted from that standpoint. Patient was discharged in stable condition with close outpatient follow-up and return precautions emphasized. Critical Care Critical Care Time Critical Care Time: No
--- NOTE | 2025-01-04 11:58 | XR_ITS ---
FINAL REPORT CLINICAL HISTORY: fall injury early am FINDINGS: Left forearm Two views were obtained. There is no fracture or dislocation. The joint spaces appear normal. No soft tissue abnormality is identified. IMPRESSION: No acute process. Reviewed, Interpreted and Dictated by Jeff Guadalupe MD Transcribed by Fabienne Simon Authenticated and [facility]
[2025-01-04] MEDS: LACTATED RINGERS 1000ML 1,000 ML 999 ML IV (12:31)
[2025-01-04 12:42] LABS: Hematocrit 28.4 % (37.0-47.0); Hemoglobin 8.9 g/dL (12.2-16.2); Immature Granulocytes % 0.4 %; Mean Corpuscular HGB Conc 31.3 g/dL (31.8-35.4); Mean Corpuscular Hemoglobin 30.8 pg (27.0-31.2); Mean Corpuscular Volume 98.3 fl (81-99); Nucleated Red Blood Cells % 0 %; Platelet Count 133 K/mm3 (142-424); Red Blood Count 2.89 M/mm3 (4.20-5.40); Red Cell Distribution Width-SD 73.5 fL; White Blood Count 8.1 K/mm3 (4.8-10.8)
[2025-01-04 12:53] LABS: Alanine Aminotransferase 12 U/L (12-78); Albumin Level 3.3 g/dl (3.5-5.0); Albumin/Globulin Ratio 0.9 (1.1-1.8); Alkaline Phosphatase 98 U/L (38-126); Anion Gap 15.1 mEq/L (5-15); Aspartate Amino Transferase 23 U/L (14-36); Bilirubin,Total 0.4 mg/dl (0.2-1.3); Blood Urea Nitrogen 21 mg/dl (7-17); Calcium 9.8 mg/dl (8.4-10.2); Carbon Dioxide 16 mmol/L (22.0-30.0); Chloride 113 mmol/L (98-107); Creatinine Clearance Estimated 81 mL/min (50-200); Creatinine,Serum 1.30 mg/dl (0.52-1.04); Estimated Glomerular Filt Rate 41 ml/min (>60); GFR (African American) 50 ML/MIN (>60); Globulin 3.6 g/dL (1.3-3.2); Glucose 120 mg/dl (74-100); Magnesium 1.4 mg/dl (1.6-2.3); Potassium 4.1 mmoL/L (3.5-5.1); Sodium 140 mmol/L (136-145); Total Protein,Serum 6.9 g/dl (6.3-8.2)
[2025-01-04 13:14] LABS: Troponin I < 0.01 ng/ml (0.00-0.034)
[2025-01-04 13:34] LABS: Phosphorous 3.4 mg/dl (2.5-4.5)
--- NOTE | 2025-01-04 14:09 | XR_ITS ---
PROCEDURE INFORMATION: Exam: XR Right Ankle Exam date and time: 01/04/2025 2:59 PM Age: 64 years old Clinical indication: Injury or trauma; Fall; Blunt trauma; Lower leg and ankle; Right; Additional info: Pain TECHNIQUE: Imaging protocol: Radiologic exam of the right ankle. Views: 3 or more views. COMPARISON: CR XR KNEE RT 3V 01/04/2025 2:59 PM FINDINGS: Bones/joints: Moderate osteoarthritis of the tibiofemoral joint with decreased joint space and marginal osteophyte formation. Small bone fragment inferior to the medial malleolus is slighlty laterally displaced, raising concern for a fractured osteophyte vs a chronic bone fragment. No other fracture or dislocation. Soft tissues: Mild swelling at the medial ankle. IMPRESSION: Small bone fragment inferior to the medial malleolus is slighlty laterally displaced, raising concern for a fractured osteophyte vs a chronic bone fragment. Consider follow up or correlation with noncontrast CT if warranted.
--- NOTE | 2025-01-04 14:09 | XR_ITS ---
PROCEDURE INFORMATION: Exam: XR Right Knee Exam date and time: 01/04/2025 2:59 PM Age: 64 years old Clinical indication: Injury or trauma; Fall; Blunt trauma; Lower leg and ankle; Right; Additional info: Pain TECHNIQUE: Imaging protocol: Radiologic exam of the right knee. Views: 3 views. COMPARISON: CR XR ANKLE RT MIN 3V 01/04/2025 2:59 PM FINDINGS: Bones/joints: Severe osteoarthritis of the patellofemoral compartment with bone on bone articulation. Small suprapatellar effusion. Mild to moderate osteoarthritis in bilateral tibiofemoral compartments. No acute fracture or dislocation. Soft tissues: Normal. 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
[2025-01-04 14:23] LABS: Microscopic, Urine URINE MICROSCOPIC (MICROSCOPIC)
[2025-01-04 14:30] LABS: Bilirubin,Urine Negative (Negative); Color,Urine YELLOW (Yellow); Glucose,Urine (UA) Negative (Negative); Ketones,Urine Negative (Negative); Leukocyte Esterase,Urine Negative (Negative); PH,Urine 6.0 (5.0-8.5); Protein,Urine 2+ (Negative); Specific Gravity, Urine 1.015 (1.005-1.030); Urobilinogen,Urine 0.2 EU/dl (0.2)
--- NOTE | 2025-01-04 14:32 | PC.NURSE ---
1424- in and out cath done
[2025-01-04 14:41] LABS: Bacteria,Urine Trace /lpf
--- NOTE | 2025-01-04 14:52 | PC.NURSE ---
radiology called for xrays
--- NOTE | 2025-01-04 14:59 | PC.NURSE ---
radiology at bedside
[2025-01-04 15:47] LABS: Troponin I < 0.01 ng/ml (0.00-0.034)
== END 2025-01-04 15:50 | disposition home or self-care (01) ==
PROVIDERS: Emergency Provider Student in an Organized Health Care Education/Training Program; PCP Internal Medicine
DX: S09.90XA Unspecified injury of head, initial encounter (principal); S63.502A Unspecified sprain of left wrist, initial encounter; S66.912A Strain of unspecified muscle, fascia and tendon at wrist and hand level, left hand, initial encounter; W19.XXXA Unspecified fall, initial encounter
CPT/HCPCS: 70450; 73090; 73562; 73610; 80053; 81001; 83735; 84100; 84484; 85025; 96360; 99285; J7120

== ENCOUNTER 2025-02-10 12:53 | Emergency (ER) | payer MEDICAID, SELFPAY ==
--- OUTSIDE RECORDS SUMMARY | 2024-10-24 04:00 | XMS_ITS ---
Author Organization [facility] [place] [address] Care Team Providers Care Curriculum Director Name Role Phone MUNA DEY Unavailable [phone] Muna Dey MD Unavailable Unavailable Yamilet Coleman Unavailable [phone] REASON FOR VISIT [facility] HFU DC 6.3.25 AND 1 month f/u/NEEDS A1C/DM EYE EXAM/MCUC/CMP Encounters Encounter Location Date Provider Diagnosis [facility] [place] [address] [place] [address] 10/24/2024 Yamilet Coleman Plan Of Treatment Next Appt Details Provider Name:Yamilet heath, 02/27/2025 10:30:00 AM, [address], [place], [address], Progress Notes * Teresa URBINADOB: [birth year] (64 yo F)Acc No.[id number]:10/24/2024 Progress Note Patient: Isis Teresa REY Provider: Carolyn Coleman :1960 A ge:63 Y S ex:Female Date:10/24/2024 Address:[address] [place] [address] [id number] Subjective: * Chief Complaints: * 1 . [facility] HFU DC 6.3.25 AND 1 month f/u/NEEDS A1C/DM EYE EXAM/MCUC/CMP. * Medical History: Objective: * Vitals: Assessment: Plan: * Treatment: * * Electronic signature of Giorgio Coleman PAC on 02/10/2025 at 01:37 PM EDT Sign off status: Pending * Provider: Carolyn Coleman Date: 0 10/24/2024 Generated for Chato Rose on: 0 02/10/2025 01:37 PM EDT
--- OUTSIDE RECORDS SUMMARY | 2024-11-22 04:00 | XMS_ITS ---
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 Role Phone MUNA CARRERA Unavailable [phone] Yissel PALMER, Muna Unavailable Unavailable Yamilet Coleman Unavailable [phone] REASON FOR VISIT follow-up Encounters Encounter Location Date Provider Diagnosis [facility] [place] [address] 11/22/2024 Yamilet Coleman Plan Of Treatment Next Appt Details Provider Name:Yamilet heath, 02/27/2025 10:30:00 AM, [address], [place], [address], Progress Notes * Teresa URBINADOB: [birth year] (64 yo F)Acc No.[id number]:11/22/2024 Progress Notes Patient: Isis Teresa REY Provider: Carolyn Coleman :1960 A ge:63 Y S ex:Female Date:11/22/2024 Address:[address] [place] [address], [place] [id number] Subjective: * Chief Complaints: * 1 . Follow-up. * Medical History: Objective: * Vitals: Assessment: Plan: * Treatment: * * Electronic signature of CAPO Ellis on 02/10/2025 at 01:38 PM EDT Sign off status: Pending * Provider: Carolyn Coleman Date: 0 11/22/2024 Generated for Chato gonzalez/Nica/Edwardo on: 0 02/10/2025 01:38 PM EDT
--- OUTSIDE RECORDS SUMMARY | 2024-11-29 10:30 | XMS_ITS | Encounter Summary ---
Author Organization [facility] Address [address] [place] [address] Care Team Providers Care Scientific Software Developer Name Role Phone Laurie Gutierrez MD Primary Care Provider [phone] Joshua Martínez MD Unavailable Sabine Morales LPN Unavailable Unavailable Reason for Visit * Reason Comments Labs * Auth/Cert (Routine) Specialty Diagnoses / Procedures Referred By Contac t Referred To Contact Diagnoses Seizures (CMS/HCC) New onset seizures in infusion clinic Nilson Jimenez MD [address] [place] [address] Phone: tel: fax: P[facility] A Emergency Department [address] [place] [address] Phone: tel: Referral ID Status Reason Start Date Expiration Date Visits Re quested Visits Authorized [id number] 1 1 Encounter Details Date Type Department Care Team (Latest Contact Info) Description 11/29/2024 10:30 AM EDT Clinical Support Pav CC Head, Neck & Respiratory [address] [facility], 2nd [place] [address] Extensive stage primary small cell carcinoma of lung Social History Tobacco Use Types Packs/Day Years Used Date Smoking Tobacco: Former Cigarettes 1.5 48.4 1 976 - 10/17/2023 Passive Smoke Exposure: Past Smokeless Tobacco: Never Alcohol Use Standard Drinks/Week Comments Never 0 (1 standard drink = 0.6 oz pur e alcohol) PHQ-2 Answer Date Recorded Patient Health Questionnaire-2 Score 0 08/31/2024 PHQ-9 Answer Date Recorded Patient Health Questionnaire-9 Score 0 08/31/2024 Humiliation, Afraid, Rape, and Kick questionnair e Answer Date Recorded Within the last year, have y ou been afraid of your partner or ex-partner? No 12/01/2024 Within the last year, have y ou been humiliated or emotionally abused in other ways by your partner or ex-partner? No Within the last year, have y ou been kicked, hit, slapped, or otherwise physically hurt by your partner or ex-partner? No 12/01/2024 Within the last year, have y ou been raped or forced to have any kind of sexual activity by your partner or ex-partner? No 12/01/2024 AUDIT-C Answer Date Recorded Q1: How often [...] the money to buy more. Never true 12/13/19 25 Within the past 12 months, t he food you bought just didn't last and you didn't have money to get more. Never true 12/12/2024 PRAPARE - Transportation Answer Date Re corded In the past 12 months, has l ack of transportation kept you from medical appointments or from getting medications? No 11/16 In the past 12 months, has l ack of transportation kept you from meetings, work, or from getting things needed for daily living? No 12/12/2024 Housing Stability Vital Sign Answer Gregor e Recorded In the last 12 months, was t here a time when you were not able to pay the mortgage or rent on time? No 12/12/2024 In the past 12 months, how m any times have you moved where you were living? 1 12/12/2024 At any time in the past 12 m [facility], were you homeless or living in a halfway (including now)? No 12/12/2024 CAGE ASSESSMENT Answer Date Recorded Cage unable [...] drink first t laurie in the morning (EYE-STATUS CONTROLLER) to steady your nerves or to get rid of a hangover? 0 12/02/2024 CAGE Questionnaire Score 0 025 Utilities Answer Date Recorded In the past 12 months has th [employer], gas, oil, or water [employer] threatened to shut off services in your home? No 12/12/2024 Comments No Sex and Gender Information Value [...] drink containing alcohol? Never 11/29/2024 11:06 AM JULIAT Kasandra Riley Q2: How many drinks containing alcohol do you have on a typical day when you are drinking? Patient does not drink 11/29/2024 11:06 AM JULIAT Kasandra Riley Q3: How often do you have six or more drinks on one occasion? Never 11/29/2024 11:06 AM JULIAT Kasandra Riley * Calculated C-SSRS Risk Score (Lifetime/Recent) Answer Date of Assessment Author No Risk Indicated 12/07/2024 8:00 PM EDT Stephanie Pierre * Question Answer Date of Assessment Author 1. Wish to be (Past 1 Month) No 025 8:00 PM EDT Ignacio Catrina L 2. Non-Specific Active Suici radha Thoughts (Past 1 Month) No 12/07/2024 8:00 PM EDT Catrina Pierre 6. Suicidal Behavior (Lifetime) No 8:00 PM EDT Catrina Pierre documented as of this encounter Plan of Treatment Upcoming Encounters Date Type Department Care Team (Late st Contact Info) Description 02/21/2025 8:45 AM EDT Clinical Support Pav [facility] Head[facility] Ne[facility] Respiratory [address] [phone] 02/21/2025 9:20 AM EDT Office Visit Pav [facility] Head[facility] Neck & Respiratory [address] [phone] Satnam Colvin MD 800 [facility] [address] [place] [phone] 02/21/2025 11:00 AM EDT Appointment [facility] Infusion Clinic [address] [place] [phone] 02/22/2025 2:30 PM EDT Appointment [facility] Infusion Clinic 1 [address] [place] [phone] 02/23/2025 3:30 PM EDT Appointment [facility] Infusion Clinic [address] [place] [phone] 03/08/2025 1:00 PM EDT Office Visit [facility] [place] Wenceslao [address] [facility] [place] [address] Teresita Oconnell MD [address] [place] [phone] 03/10/2025 2:20 PM EDT Appointment [facility] [address], [address] [place] [phone] 03/10/2025 3:45 PM EDT Appointment [facility] Radiology [address], 1st [place] [address] 03/14/2025 11:00 AM EDT Office Visit Pav CC Head, Neck & Respiratory [address] [facility], 2nd [place] [address] Satnam Colvin MD [address] [facility] [address] [place] [address] documented as of this encounter Procedures Procedure Name Priority Date/Time Associated Diagnosis Comments TSH REFLEX FT4 Routine 11/29/2024 12:19 PM EDT Extensive stage primary small cell carcinoma of lung CBC WITH AUTO DIFFERENTIAL Routine 11/29/2024 12:19 PM EDT Extensive stage primary small cell carcinoma of lung MAGNESIUM, PLASMA STAT 11/29/2024 12: 19 PM EDT Extensive stage primary small cell carcinoma of lung COMPREHENSIVE METABOLIC PANEL, PLASMA Routine 11/29/2024 12:19 PM EDT Extensive stage primary small cell carcinoma of lung documented in this encounter Results * TSH reflex FT4 (11/29/2024 12:19 PM EDT) Thyroid Stimulating Hormone, Plasma 1.32 0.40 - 4.20 uIU/mL 11/29/2024 1:46 PM EDT [facility] Blood Venous blood specimen / Unknown Venipuncture / Unknown 11/29/2024 12:19 PM EDT 11/29/2024 12:36 PM EDT us Satnam Dunne MD LAB BLOOD ORDERABLES Fi nal Result [facility] [address] [place] [address] * (ABNORMAL) Magnesium (11/29/2024 12:19 PM EDT) Magnesium, Plasma 0.8(LL) 1.9 - 2.4 mg/dL 11/29/2024 1:46 PM EDT [facility] Blood Venous blood specimen / Unknown Venipuncture / Unknown 11/29/2024 12:19 PM EDT 11/29/2024 12:36 PM EDT Satnam Dunne MD LAB BLOOD ORDERABLES Fi nal Result [facility] [address] [place] [address] * (ABNORMAL) Comprehensive metabolic panel (11/29/2024 12:19 PM EDT) Glucose, Plasma 287(H) 74 - 99 mg/dL 11/29/2024 1:46 PM EDT [facility] BUN, Plasma 17 8 - 23 mg/dL 11/29/2024 1:46 PM EDT [facility] Creatinine, Plasma 2.81(H) 0.60 - 1.10 mg/dL 11/29/2024 1:46 PM EDT [facility] BUN/Creatinine Ratio 6 11/29/2024 1:46 PM EDT [facility] Sodium, Plasma 139 136 - 145 mmol/L 11/29/2024 1:46 PM EDT [facility] Potassium, Plasma 4.6 3.6 - 4.9 mmol/L 11/29/2024 1:46 PM EDT [facility] Comment:Hemolyzed, result ma y be falsely increased. Chloride, Plasma 102 97 - 107 mmol/L 11/29/2024 1:46 PM EDT [facility] CO2, Plasma 22 22 - 29 mmol/L 11/29/2024 1:46 PM EDT [facility] Anion Gap 15 6 - 16 mmol/L 11/29/2024 1:46 PM EDT [facility] Total Calcium, Plasma 7.7(L) 8.9 - 10.2 mg/dL 11/29/2024 1:46 PM EDT [facility] Total Protein 6.3 6.3 - 7.9 g/dL 11/29/2024 1:46 PM EDT [facility] Albumin, Plasma 3.0(L) 3.5 - 5.2 g/dL 11/29/2024 1:46 PM EDT [facility] AST, Plasma 33 10 - 35 U/L 11/29/2024 1:46 PM EDT [facility] Comment:Hemolyzed, result ma y be falsely increased. ALT, Plasma 17 10 - 35 U/L 11/29/2024 1:46 PM EDT [facility] Alkaline Phosphatase, Plasma 122 46 - 142 U/L 11/29/2024 1:46 PM EDT [facility] Total Bilirubin, Plasma 0.5 0.2 - 1.1 mg/dL 11/29/2024 1:46 PM EDT [facility] eGFRcr 18.2 mL/min/1.7 3m*2 11/29/2024 1:46 PM EDT [facility] Comment:Reported eGFRcr in m L/min/1.73m2 is based the CKD-EPI 2020 equation that does not use a race coefficient. Blood Venous blood specimen / Unknown Venipuncture / Unknown 11/29/2024 12:19 PM EDT 11/29/2024 12:36 PM EDT us Satnam Dunne MD LAB BLOOD ORDERABLES Fi nal Result [facility] [address] [place] [address] * (ABNORMAL) CBC and differential (11/29/2024 12:19 PM EDT) WBC Count 9.83 3.70 - 10.30 10*3/uL LAB HEMATOLOGY METHOD 11/29/2024 1:00 PM EDT [facility] RBC Count 2.67(L) 3.90 - 5.20 10*6/uL LAB HEMATOLOGY METHOD 11/29/2024 1:00 PM EDT [facility] HGB 7.7(L) 11.2 - 15.7 g/dL LAB HEMATOLOGY METHOD 11/29/2024 1:00 PM EDT [facility] HCT 25.9(L) 34.0 - 45.0 % LAB HEMATOLOGY METHOD 11/29/2024 1:00 PM EDT [facility] Platelet Count 166 155 - 369 10*3/uL LAB HEMATOLOGY METHOD 11/29/2024 1:00 PM EDT [facility] MCV 97 79 - 98 fL LAB HEMATOLOGY METHOD 11/29/2024 1:00 PM EDT [facility] MCH 28.8 26.0 - 32.0 pg LAB HEMATOLOGY METHOD 11/29/2024 1:00 PM EDT [facility] MCHC 29.7(L) 30.7 - 35.5 g/dL LAB HEMATOLOGY METHOD 11/29/2024 1:00 PM EDT [facility] RDW 19.9(H) 11.5 - 14.5 % LAB HEMATOLOGY METHOD 11/29/2024 1:00 PM EDT [facility] MPV 9.9 8.8 - 12.5 fL LAB HEMATOLOGY METHOD 11/29/2024 1:00 PM EDT [facility] nRBC 0.0 <=0.0 per 100 WBCs LAB HEMATOLOGY METHOD 11/29/2024 1:00 PM EDT [facility] Differential Type Automated LAB HEMATOLOGY METHOD 11/29/2024 1:00 PM EDT [facility] Neutrophils % 83 % LAB HEMATOLOGY METHOD 11/29/2024 1:00 PM EDT [facility] Lymphocytes % 8 % LAB HEMATOLOGY METHOD 11/29/2024 1:00 PM EDT [facility] Monocytes % 6 % LAB HEMATOLOGY METHOD 11/29/2024 1:00 PM EDT [facility] Eosinophils % 2 % LAB HEMATOLOGY METHOD 11/29/2024 1:00 PM EDT [facility] Basophils % 0 % LAB HEMATOLOGY METHOD 11/29/2024 1:00 PM EDT [facility] Immature Granulocytes % 1 % LAB HEMATOLOGY METHOD 11/29/2024 1:00 PM EDT [facility] Neutrophils Absolute 8.18(H) 1.60 - 6.10 10*3/uL LAB HEMATOLOGY METHOD 11/29/2024 1:00 PM EDT [facility] Lymphocytes Absolute 0.75(L) 1.20 - 3.90 10*3/uL LAB HEMATOLOGY METHOD 11/29/2024 1:00 PM EDT [facility] Monocytes Absolute 0.55 0.30 - 0.90 10*3/uL LAB HEMATOLOGY METHOD 11/29/2024 1:00 PM EDT [facility] Eosinophils Absolute 0.20 0.00 - 0.50 10*3/uL LAB HEMATOLOGY METHOD 11/29/2024 1:00 PM EDT [facility] Basophils Absolute 0.04 0.00 - 0.10 10*3/uL LAB HEMATOLOGY METHOD 11/29/2024 1:00 PM EDT [facility] Immature Granulocytes Absolute 0.11(H) 0.00 - 0.06 10*3/uL LAB HEMATOLOGY METHOD 11/29/2024 1:00 PM EDT [facility] Blood Venous blood specimen / Unknown Venipuncture / Unknown 11/29/2024 12:19 PM EDT 11/29/2024 12:50 PM EDT Narrative [facility] - 11/29/2024 1:00 PM EDT Therapeutic decision making should be based on absolute values, rather than percentages. 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, SWITCHBOARD CLERK 10/26/2024 10/31/2024 COVID-19 Rule-Out 11/30/2024 11/30/2024 11/30/2024 4:02 AM EDT Respiratory Rule-Out 11/30/2024 11/30/2024 025 5:05 AM EDT Meningitis Rule-Out 12/06/2024 12/06/2024 12/07/19 25 8:29 PM EDT Assessment Noted Time PHQ-9 Depression Total Score: 0 09/01/19 25 3:26 PM EDT A fall risk assessment has been complete d for the patient 11/29/2024 1:14 PM EDT A Body Mass Index follow-up plan has been documented for the patient 12/10/2024 5:08 PM EDT documented as of this encounter Care Teams Scientific Software Developer Relationship Specialty Start Date End Date Laurie Gutierrez MD [address] [place], [place] [phone] PCP - General 12/09/23 Joshua Martínez MD [address] [place] [phone] Consulting Physician Radiation Oncology 09/19/24 Sabine Morales LPN TCM Nurse 11/23/24 12/23/24 documented as of this encounter
--- OUTSIDE RECORDS SUMMARY | 2024-12-15 09:45 | XMS_ITS ---
Author Organization [facility] Address [address] [place] [address] Care Team Providers Care Political Analyst Name Role Phone TRAY DEY Unavailable [phone] Tray Dey MD Unavailable Unavailable Yamilet Coleman Unavailable [phone] Allergies Allergen (clinical drug ingredient) Drug/Non Drug Allergy documented on EMR Reaction Allergy Type Onset Date Status Keflex Unknown Drug Allergy Active lisinopril lisinopril Unknown Drug Allergy Activ e meloxicam meloxicam Unknown Drug Allergy Active Results Component Value Reference Range Notes Magnesium, Serum Reviewed date:12/16/2024 08:51:30 AM Interpretation: Performing Lab:[facility] [address] [place] [address], Phone - [phone], [facility] Notes/Report: Magnesium 1.0 1.6-2.3 mg/dL TSH Reviewed date:12/16/2024 08:51:26 AM Interpretation: Performing Lab:[facility], Phone - [phone], Director - [facility] Notes/Report: TSH 2.610 0.450-4.500 uIU/mL Comp. Metabolic Panel (14) Reviewed date:12/16/2024 08:50:26 AM Interpretation: Performing Lab:[facility], Phone - [phone], [facility] Notes/Report: Glucose 186 70-99 mg/dL BUN 20 8-27 mg/dL Creatinine 1.52 0.57-1.00 mg/dL eGFR 38 >59 mL/min/1.73 BUN/Creatinine Ratio 13 12-28 Sodium 140 134-144 mmol/L Potassium 4.8 3.5-5.2 mmol/L Chloride 98 96-106 mmol/L Carbon Dioxide, Total 20 20-29 mmol/L Calcium 9.5 8.7-10.3 mg/dL Protein, Total 7.2 6.0-8.5 g/dL Albumin 3.5 3.9-4.9 g/dL Globulin, Total 3.7 1.5-4.5 g/dL Bilirubin, Total 0.5 0.0-1.2 mg/dL Alkaline Phosphatase 100 44-121 IU/L AST (SGOT) 15 0-40 IU/L ALT (SGPT) 9 0-32 IU/L REASON FOR VISIT F/U Medications Medication SIG (Take, Route, Frequency, Duration) Notes Start Date End Date Status Dexcom G7 Sensor - as directed 09/26/2024 Active hydrOXYzine HCl 25 MG 1 tablet as needed Orally three times a day; Duration: 30 days Active FLUoxetine HCl 40 mg take 1 tablet oral once aday; Duration: 90 days Active Carvedilol 25 MG 1 tablet Orally Twic e a day; Duration: 30 days Active Alcohol Prep Pads 70 % as directed; Duration: 30 days Active tiZANidine HCl 2 MG 1 tablet at bedtime as needed Orally Once a day; Duration: 10 days 08/23/2024 Active Dexcom G6 Transmitter - as directed; Duration: 90 days Active Dexcom G7 Certified Solid Waste Facility Operator - as directed 09/26/2024 Active Ferrous Sulfate 325 (65 Fe) MG 1 tablet Orally once a day; Duration: 30 days 08/23/2024 Active Cetirizine HCl 10 mg TAKE 1 TABLET 1 AURELIA E EACH DAY daily; Duration: 90 days Active Vitamin D-[address] 25 MCG (1000 UT) 1 tablet Orally Once a day Active Gabapentin 600 MG 1 capsule Orally 4 times a day; Duration: 28 days oncology 12/07/2023 Active Dexcom G6 Certified Solid Waste Facility Operator - as directed 02/12/2024 Active Protonix 40 MG 1 tablet Orally Once a day; Duration: 90 days Active Benzonatate 100 MG 1 capsule as needed Orally Three times a day; Duration: 30 days 07/08/2024 Active Insulin Lispro 100 UNIT/ML inject 15 units with meals Active Breztri Aerosphere 160-9-4.8 MCG/ACT INHALE 2 PUFFS 2 TIMES EACH DAY; Duration: 30 Active Montelukast Sodium 10 MG 1 tablet Orally Once a day; Duration: 30 days Active Vitamin B-12 ER 1000 MCG 1 tablet Orally Once a day; Duration: 90 days Active metFORMIN HCl 1000 MG 1 tablet with meal s Orally Twice a day; Duration: 30 days Active Insulin Glargine-yfgn 100 UNIT/ML inject 20 units under the skin Subcutaneous nightly Active Calcium 600/Vitamin D 600-10 MG-MCG 1 tablet with a meal Orally Once a day; Duration: 30 days Active Calcium Carbonate Ac tive Pantoprazole Sodium 40 mg TAKE 1 TABLET 1 TIME EACH DAY; Duration: 30 Active Januvia 50 MG 1 tablet Orally Once a day; Duration: 30 days Active Magnesium Oxide 400 MG 1 tablet with citlali d Orally twice a day 10/20/2024 Active Melatonin Active Compazine Active Nystatin 978080 UNIT/ML swish and swallo w 5mL Mouth/Throat Four times a day for 39 doses 10/20/2024 Active Ondansetron 8 MG 1 tablet on the tongue and allow to dissolve as needed Orally every 8 hours Active Acetaminophen 325 MG 2 tablets Orally every 6 hrs 11/24/2024 Active Ofloxacin 0.3 % 5 drops into affecte d ear right ear Otic Once a day; Duration: 7 days 11/24/2024 Active Fluconazole 200 MG 1 tablet Orally daily; Duration: 7 days 11/24/2024 Active Atorvastatin Calcium 40 MG 1 tablet Orally Once a day 11/24/2024 Active Cyanocobalamin ER 1000 MCG 1 tablet Orally Once a day 11/24/2024 Active Benzonatate 100 MG 1 capsule as needed Orally Three times a day; Duration: 15 days Not-Taking dexAMETHasone 2 MG 1 tablet Orally twic e a day Not-Taking Bactrim DS 800-160 MG 1 tablet Orally tw ice a day; Duration: 10 days 11/24/2024 Active rOPINIRole HCl 1 mg 1 tablet orally twic e a day; Duration: 30 day(s) 08/23/2024 Not-Taking Azithromycin 250 MG take 2 tablets the first day then 1 daily Orally daily; Duration: 5 days 10/21/2024 Not-Taking Jardiance 25 mg TAKE 1 TABLET 1 TIME EACH DAY; Duration: 90 days Not-Taking Xarelto 20 MG 1 tablet with food Orally Once a day; Duration: 30 days Not-Taking Triamterene-HCTZ 37.5-25 MG 1 tablet in the morning Orally Once a day; Duration: 90 days Not-Taking FreeStyle Lite Test - as directed In Vit ro daily; Duration: 30 days Active Ciclopirox 8 % 1 application Externally Once a day; Duration: 30 days 07/08/2024 Not-Taking Accu-Chek Softclix Lancets - USE TO TEST BLOOD SUGAR 3 TIMES EACH DAY; Duration: 30 Active Lipitor 40 MG 1 tablet Orally Once a day; Duration: 90 days Active Vital Signs Temperature 98.7 degrees Fahrenheit 12/16/19 25 Blood pressure systolic 132 mm Hg 12/16/19 25 Blood pressure diastolic 88 mm Hg 025 Heart Rate 106 /min 12/15/2024 Respiratory Rate 18 /min 12/15/2024 Height 67 in 12/15/2024 Oximetry 97 % 12/15/2024 Encounters Encounter Location Date Provider Diagnosis [facility] [address] [place] [address] 12/15/2024 Yamilet Coleman Malignant neoplasm o f unspecified part of unspecified bronchus or lung C34.90 ; Pneumonia, unspecified organism J18.9 ; Essential (primary) hypertension I10 ; Acute cough R05.1 ; Weakness generalized R53.1 ; COPD without exacerbation J44.9 and Anxiety F41.9 Assessments Encounter Date Diagnosis (ICD Code) Assessment Notes Treatment Notes Treatment Clinical Notes Section Notes 12/15/2024 Malignant neoplasm of unspecified part of unspecified bronchus or lung (ICD-10 - C34.90) Pt family states that they feels she is about to 'give up She has not heard from pallative care. Called to try to get her set up [place] follows with pulm and oncology She hasnt been able to get treatments due to illness and being in the hospital 12/15/2024 Pneumonia, unspecified organism (ICD-10 - J18.9) Pt recently in the hospital and was given IV abx pt appears weak Discussed how she would benefit from going back to the hospital to receive treatments adn fluids Encourage rest, hydration, and supportive care 12/15/2024 Essential (primary) hypertension (ICD-10 - I10) increasing carvediolol dose today 12/15/2024 Acute cough (ICD-10 - R05.1) 12/15/2024 Weakness generalized (ICD-10 - R53.1) using walker pt appears to be declining working to get home health / pallative 12/15/2024 COPD without exacerbation (ICD-10 - J44.9) stable. has stopped smoking 12/15/2024 Anxiety (ICD-10 - F41.9) hydroxyzine to take as needed during the day Plan Of Treatment Treatment Notes Assessment Notes Malignant neoplasm of unspec ified part of unspecified bronchus or lung Pt family states that they feels she is about to 'give up She has not heard from pallative care. Called to try to get her set up [place] follows with pulm and oncology She hasnt been able to get treatments due to illness and being in the hospital Pneumonia, unspecified organism Pt recently in the hospital and was given IV abx pt appears weak Discussed how she would benefit from going back to the hospital to receive treatments adn fluids Encourage rest, hydration, and supportive care Essential (primary) hypertension increas ing carvediolol dose today Weakness generalized using walker pt appears to be declining working to get home health / pallative COPD without exacerbation stable. has st opped smoking Anxiety hydroxyzine to take as needed during the day Pending Test Test Name Order Date Vitamin B12 and Folate 12/15/2024 Hemoglobin A1c 12/15/2024 Urinalysis, Complete 12/15/2024 CBC With Differential/Platelet Vitamin D, 25-Hydroxy 12/15/2024 Next Appt Details Follow Up: 1 Week, Reason: Provider Name:Yamilet heath, 02/27/2025 10:30:00 AM, [address], [place], [address], Progress Notes * Teresa URBINADOB: [birth year] (64 yo F)Acc No.[id number]:12/15/2024 Progress Notes Patient: Isis REYTeresa Provider: Carolyn Coleman :1960 A ge:64 Y S ex:Female Date:12/15/2024 Address:[address] [place] [address] VALE, Lenka GARCIA, [id number] Subjective: * Chief Complaints: * F /U * HPI: C onstitutional: 64 y/o female with PMHX significant for htn, DM, copd, anxiety, and hld presents in for f/u. New dx of small cell lung cancer with immunocompromised state. has quit smoking. She states all her specialists now are at .pt is now starting chemo and radiation. SHe has been in and out of the hospital recently. The patient presented for a follow-up after a recent hospital discharge with concerns regarding kidney function, electrolyte imbalances, heart failure, and a history of a seizure. Reviewed hospital notes The patient reported ongoing kidney problems with abnormal potassium and magnesium levels. The patient had been hospitalized three days prior for ten days, during which her creatinine level was 3.4 but decreased to 1 point something by discharge. She experienced significant swelling in her feet and ankles, and had been treated with antibiotics for a UTI and a suspected meningitis. The patient was not eating well, having had little appetite for about two weeks. She was advised to maintain a high potassium diet. Additionally, the patient had a history of respiratory infection with Pseudomonas bacteria, treated with IV antibiotics. The patient reported a seizure prior to hospitalization and was prescribed Keppra. Her heart rate and blood pressure had been fluctuating, and she had not been taking insulin due to good sugar control from oral medications. The patient mentioned a persistent infection from a prior head surgery and was not experiencing nausea. ASSESSMENT: 1. Electrolyte Imbalance: The patient had abnormal potassium and magnesium levels, likely contributing to her current symptoms and requiring monitoring and dietary adjustments. Recently discharged without supplementation, necessitating further evaluation. 2. Chronic Kidney Disease: The patient's history of elevated creatinine and ongoing kidney issues suggest chronic kidney disease, likely contributing to her electrolyte imbalances and swelling. Requires further assessment and management. 3. Seizure Disorder: The patient experienced a seizure prior to hospitalization and is currently on Keppra. Monitoring for further seizures and optimization of antiepileptic therapy is necessary. 4. Heart Failure: The patient mentioned heart failure, possibly related to her fluctuating heart rate and blood pressure. Requires ongoing management and monitoring. PLAN: Treatment: - Discussed with pateint the severlity of her condition. Upon blood draw was unable to get labs due to dehydration . Discussed with family that patient would need to go back to hospital for treatment _ pt has not been set up with pallative care but would benefit - [facility] - Adjustments to metoprolol dosage based on blood pressure and heart rate monitoring Tests: - Ordered blood work to assess kidney function, electrolyte levels, and infection markers Patient Education: - Discussed the importance of dietary potassium intake - Advised on monitoring symptoms and when to seek hospital care Follow-Up: - Arranged for follow-up with Dr. Dey next week Disposition: - [facility] for [facility] assistance - Encouraged to contact home health services for setup and support. * ROS: G eneral/Constitutional: Change in appetite [...] loss d enies. R espiratory: Admits Lenka ough. A dmits P neumonia. S hortness of [...] last office visit?: no. * Medications: T akingBactrim DS 800-160 MG Tablet 1 tablet Orally twice a day Fluconazole 200 MG Tablet 1 tablet Orally daily Ofloxacin 0.3 % Solution 5 drops into affected ear right ear Otic Once a day Cyanocobalamin ER 1000 MCG Tablet Extended Release 1 tablet Orally Once a day Atorvastatin Calcium 40 MG Tablet 1 tablet Orally Once a day Acetaminophen 325 MG Tablet 2 tablets Orally every 6 hrs Compazine Ondansetron 8 MG Tablet Disintegrating 1 tablet on the tongue and allow to dissolve as needed Orally every 8 hours Nystatin 956167 UNIT/ML Suspension swish and swallow 5mL Mouth/Throat Four times a day for 39 doses Melatonin Magnesium Oxide 400 MG Tablet 1 tablet with food Orally twice a day Insulin Glargine-yfgn 100 UNIT/ML Solution inject 20 units under the skin Subcutaneous nightly Calcium Carbonate Calcium 600/Vitamin D 600- 10 MG-MCG Tablet [...] tablet Orally Once a day Dexcom G6 Certified Solid Waste Facility Operator - Device as directed Benzonatate 100 [...] tablet Orally once a day Dexcom G7 Certified Solid Waste Facility Operator - Device as directed Dexcom G7 [...] Strip as directed In Vitro daily Taking Bactrim DS 800-160 MG Tablet 1 tablet Orally twice a day Taking Fluconazole 200 MG Tablet 1 tablet Orally daily Taking Ofloxacin 0.3 % Solution 5 drops into affected ear right ear Otic Once a day Taking Cyanocobalamin ER 1000 MCG Tablet Extended Release 1 tablet Orally Once a day Taking Atorvastatin Calcium 40 MG Tablet 1 tablet Orally Once a day Taking Acetaminophen 325 MG Tablet 2 tablets Orally every 6 hrs Taking Compazine Taking Ondansetron 8 MG Tablet Disintegrating 1 tablet on the tongue and allow to dissolve as needed Orally every 8 hours Taking Nystatin 730238 UNIT/ML Suspension swish and swallow 5mL Mouth/Throat [...] Orally Once a day Taking Dexcom G6 Certified Solid Waste Facility Operator - Device as directed Taking Benzonatate [...] Orally once a day Taking Dexcom G7 Certified Solid Waste Facility Operator - Device as directed Taking Dexcom [...] 1 tablet Orally Once a day Taking Accu- Chek Softclix Lancets - Miscellaneous USE TO TEST BLOOD SUGAR 3 TIMES EACH DAY Taking FreeStyle Lite Test - Strip as directed In Vitro daily Ygb-ZyekkxObdqqowvdfj-JGQD 37.5-25 MG Tablet 1 tablet in the [...] as needed Orally Three times a day Not- Taking Azithromycin 250 MG Tablet take 2 tablets the first day then 1 daily Orally daily Not-Taking rOPINIRole HCl 1 mg 1 tablet orally twice a day Medication List reviewed and reconciled with the patient * Allergies: K eflexlisinoprilmeloxicamno[Allergies Verified] Objective: * Vitals: T emp:98.7F, HR:106/min, BP:132/88mm Hg, Ht: 67 in, RR:18/min, Oxygen sat %:97%, Peak Flow: 3l. * Examination: G eneral Examination: GENERAL APPEARANCE: [...] sounds present, normal. EXTREMITIES: n o clubbing, cyanosis,. NEUROLOGIC: n onfocal, . Assessment: * Assessment: 1. P neumonia, unspecified [...] part of unspecified bronchus or lung Notes: Pt family states that they feels she is about to 'give up She has not heard from pallative care. Called to try to get her set up [place] follows with pulm and oncology She hasnt been able to get treatments due to illness and being in the hospital 3. E ssential (primary) hypertension L AB: CBC With Differential/Platelet L AB: Comp. Metabolic Panel (14) Notes: increasing carvediolol dose today 4. W eakness generalized Notes: using walker pt appears to be declining working to get home health / pallative 5. C OPD without exacerbation Notes: stable. has stopped smoking 6. A nxiety Notes: hydroxyzine to take as needed during the day 7. O thers L AB: Vitamin B12 and Folate L AB: Hemoglobin A1c L AB: Vitamin D, 25-Hydroxy L AB: Magnesium, Serum L AB: Urinalysis, Complete L AB: CBC With Differential/Platelet L AB: Comp. Metabolic Panel (14) L AB: TSH * Procedure Codes: * Follow Up: 1 Week * * Sign off status: Completed true * Provider: Carolyn Coleman Date: 12/15/2024 Generated for Chato gonzalez/Nica/Edwardo on: 0 02/10/2025 01:40 PM EDT History and Physical Notes * HPI (History of Present Illness) Category Sub-Category Detail Notes Category Not es Constitutional 64 y/o female with PMHX significant for htn, DM, copd, anxiety, and hld presents in for f/u. New dx of small cell lung cancer with immunocompromised state. has quit smoking. She states all her specialists now are at .pt is now starting chemo and radiation. SHe has been in and out of the hospital recently. The patient presented for a follow-up after a recent hospital discharge with concerns regarding kidney function, electrolyte imbalances, heart failure, and a history of a seizure. Reviewed hospital notes The patient reported ongoing kidney problems with abnormal potassium and magnesium levels. The patient had been hospitalized three days prior for ten days, during which her creatinine level was 3.4 but decreased to 1 point something by discharge. She experienced significant swelling in her feet and ankles, and had been treated with antibiotics for a UTI and a suspected meningitis. The patient was not eating well, having had little appetite for about two weeks. She was advised to maintain a high potassium diet. Additionally, the patient had a history of respiratory infection with Pseudomonas bacteria, treated with IV antibiotics. The patient reported a seizure prior to hospitalization and was prescribed Keppra. Her heart rate and blood pressure had been fluctuating, and she had not been taking insulin due to good sugar control from oral medications. The patient mentioned a persistent infection from a prior head surgery and was not experiencing nausea. ASSESSMENT: 1. Electrolyte Imbalance: The patient had abnormal potassium and magnesium levels, likely contributing to her current symptoms and requiring monitoring and dietary adjustments. Recently discharged without supplementation, necessitating further evaluation. 2. Chronic Kidney Disease: The patient's history of elevated creatinine and ongoing kidney issues suggest chronic kidney disease, likely contributing to her electrolyte imbalances and swelling. Requires further assessment and management. 3. Seizure Disorder: The patient experienced a seizure prior to hospitalization and is currently on Keppra. Monitoring for further seizures and optimization of antiepileptic therapy is necessary. 4. Heart Failure: The patient mentioned heart failure, possibly related to her fluctuating heart rate and blood pressure. Requires ongoing management and monitoring. PLAN: Treatment: - Discussed with pateint the severlity of her condition. Upon blood draw was unable to get labs due to dehydration . Discussed with family that patient would need to go back to hospital for treatment _ pt has not been set up with pallative care but would benefit - Continued Keppra for seizure management - Adjustments to metoprolol dosage based on blood pressure and heart rate monitoring Tests: - Ordered blood work to assess kidney function, electrolyte levels, and infection markers Patient Education: - Discussed the importance of dietary potassium intake - Advised on monitoring symptoms and when to seek hospital care Follow-Up: - Arranged for follow-up with Dr. Dey next week Disposition: - [facility] - Encouraged to contact home health services for setup and support Examination Category Sub-Category Detail Notes Category Not [...] picious lesions EXTREMITIES: no clubbing, cyanosi s, ORAL CAVITY: mucosa dry redness t o the corners of mouth.
--- OUTSIDE RECORDS SUMMARY | 2024-12-15 20:36 | XMS_ITS | Encounter Summary ---
Author Organization [facility] Address [address] [place] [address] Care Team Providers Care Lithographic Proofer Apprentice Name Role Phone Laurie Gutierrez MD Primary Care Provider [phone] Joshua Martínez MD Unavailable Sabine Morales LPN Unavailable Unavailable Reason for Visit * Reason Comments Shortness of Breath * Auth/Cert (Routine) Specialty Diagnoses / Procedures Referred By Contac t Referred To Contact Diagnoses Dyspnea History of lung cancer Atrial fibrillation with RVR (CMS/HCC) Incisional infection Multiple subsegmental pulmonary emboli without acute cor pulmonale (CMS/HCC) Desi Pop MD [address] [place] [address] Phone: tel: fax: [facility] Inpatient [address] [place] [address] Phone: tel: Referral ID Status Reason Start Date Expiration Date Visits Re quested Visits Authorized [id number] 1 1 Encounter Details Date Type Department Care Team (Latest Contact Info) Description 12/15/2024 8:36 PM EDT - 12/22/2024 3:43 PM EDT Hospital Encounter [facility] Inpatient [address] [place] [address] Ailyn Cabrera MD [address] [place] [address] Desi Pop MD [address] [place] [address] Lisa Lloyd DO [address] [place] [address] Yosi Richmond MD [address] [place] [address] Incisional infection (Primary Dx); Multiple [...] living in a snf (including now)? 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 0 12/02/2024 CAGE Questionnaire Score 0 025 Utilities Answer Date Recorded In the past 12 months has th e MoSo, gas, oil, or water company threatened to [...] Take 1 tablet by mouth every evening. cetirizine (ZyrTEC) 10 MG tablet Take 1 tablet by mouth daily. dilTIAZem CD (Cardizem CD) 120 MG 24 hr capsule Take 1 capsule by mouth nightly. 30 capsule 1 08/07/202 5 ferrous sulfate 325 (65 Fe) MG [...] times a day. 90 tablet 1 5 montelukast (Singulair) 10 MG tablet Take 1 tablet by mouth nightly. ondansetron ODT (Zofran-ODT) 4 MG disintegrating tablet [...] controlled-release Take 1 tablet by mouth Daily. cefepime (Maxipime) 1 g injectionIndication s:Incisional infection Infuse 6 gm continuously every 24 hours. Mix per institutional policy. 1 each 5 02/02/20 25 enoxaparin (Lovenox) 100 MG/ML solution prefilled syringe Inject 1 mL under the skin 2 times a day for 9 days. 17 each 5 01/04/20 25 acetaminophen (Tylenol) 325 MG tablet Take 2 tablets by mouth every 6 hours. Under [place] law, monthly prescriptions (30 days) can be refilled at 25 days and three-month prescriptions (90 days) at 80 days. Please contact the insurance company with questions if refills are denied. 100 tablet 5 01/19/20 25 Budeson-Glycopyrrol -Formoterol (Breztri Aerosphere) 160-9-4.8 MCG/ACT aerosol Inhale 2 puffs 2 (two) times a day. 01/19/20 25 Calcium Carb-Cholecalcifero l 600-10 MG-MCG tablet Take 1 tablet by mouth daily. 01/19/20 25 insulin glargine (Lantus SoloStar) 100 UNIT/ML injection pen Inject 25 Units under the skin nightly. 01/19/20 25 levETIRAcetam (Keppra) 1000 MG tablet Take 1 tablet by mouth 2 times a day. 60 tablet 5 5 01/04/20 25 magnesium oxide (Mag-Ox) 400 MG tablet Take 1 tablet by mouth 2 times a day. Hold for diarrhea 60 tablet 1 5 01/03/20 25 NovoLOG FLEXPEN 100 UNIT/ML injection pen Sliding scale three times a day with corrections and meals; BS 150-199=2units; BS 200-249=4units; BS 250-229=6units; 300-349=8 units; 350-399=10 units; anything greater than 399=12units max of 36units daily 01/19/20 25 nystatin (Mycostatin) 284700 UNIT/GM powder Apply on bottom 2 times a day 30 g 5 01/19/20 25 triamterene-hydroch lorothiazide (Maxzide-25) 37.5-25 MG tablet Take 1 tablet by mouth every morning. 01/19/20 25 documented as of this encounter Miscellaneous [...] PCP name and Address: Laurie Gutierrez MD [address] [place] [id number] Referring provider name and address: No referring [...] Breztri Aerosphere 160-9-4.8 MCG/ACT aerosol Generic drug: Nqkrpgi-Lkopijdtpsh-Mjdmmbgyeu Inhale 2 puffs 2 (two) times a [...] than 399=12units max of 36units daily nystatin 422425 UNIT/GM powder Commonly known as: Mycostatin Apply [...] medications were sent to [facility] -[place], [place] - [address], [facility] [address] cefepime 1 g injection These medications were sent to [facility] - [place], [place] - 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 concerning for pneumonia vs [...] Time Provider Department Center 01/03/2025 9:00 AM [facility] JOSE MARTIN Vasquez 01/03/2025 9:40 AM Satnam Colvin MD [facility] 01/03/2025 11:00 AM [facility] 1 INFUSION TREATMENT [id number] [place] 01/04/2025 2:30 PM [facility] 1 INFUSION TREATMENT [id number] [place] 01/05/2025 1:00 PM Lia Barnes, PRODUCTION ILLUSTRATOR IDBCCLX [place] 01/05/2025 2:30 PM [facility] 2 INFUSION TREATMENT [id number] [place] 01/19/2025 9:20 AM GS MR 2 MRIGSH [facility] 01/19/2025 10:45 AM Abhilash Bangura MD [facility] 01/26/2025 4:30 PM Lia Barnes PRODUCTION ILLUSTRATOR IDBCCLX [place] 03/08/2025 1:00 PM Teresita Oconnell MD [facility] Heart I Pertinent Physical Exam At Time [...] Note Teresa Rivera 64 y.o. female CSN: [id number] Admission: 12/15/2024 8:36 PM Primary Problem: Dyspnea Patient medically ready for discharge. Patient to transfer home with family transport. Patient to go home with IV abx until 01/26/25. Patient receiving abx through [facility]. No home health able to be secured, so patient will get PICC line dressing and lab draws at [facility] office ([phone]) per patient preference. Patient to follow up with Neurosurgery, ID and oncology outpatient. Primary Telephone Service Representative: Primary Caregiver: Self Assistance Available at Discharge: Availability of Care Givers (#Hours): 24 hours Family/Telephone Service Representative(s) Willingness Assessed to care for patient at home: Yes Family/Telephone Service Representative(s) Readiness Assessed to care for patient at home: Yes Housing Circumstances-Z Codes: Housing Circumstances (select all that apply): Low Income (101-300% Federal Poverty Guidlines) - Z596 Patient Referred to Financial or Community Resources: None Discharge Facility/Level of Care Needs: Discharge Facility/Level of Care Needs: 1-Home or Self Care Patient's Choice of Community Agency(s): Patient's Choice of Community Agency(s): [facility] Patient/Family Anticipated Services at Transition: Patient/Family Anticipated Services at Transition: outpatient care DME/Equipment Needed after Discharge: Equipment Currently Used at Home: commode chair, walker, rolling, wheelchair, manual, oxygen ([employer]) Equipment Needed After Discharge: none Readmission Within the Last 30 Days: Yes Medicare Documentation: Medicare Second Notice?: No (medicaid insurance) Follow-up: [facility] [place] [address] Go on 12/26/2024 Go here for PICC [...] dressing and lab draws set up with [facility] office. Vonnie Gutierrez RN * Care Plan [...] Wellbeing and Self-Management Success Flowsheets (Taken 12/22/2024 110) Supportive Measures: active listening utilized decision-making supported [...] Monitor and Manage Fluid Balance Flowsheets (Taken 12/22/20241105) Fluid/Electrolyte Management: electrolyte supplement adjusted fluids provided fluids adjusted Goal: Absence of Infection Signs and Symptoms Outcome: Ongoing, Progressing Intervention: Prevent Infection Progression Flowsheets (Taken 12/22/20241105) Infection Management: aseptic technique maintained Fever Reduction/Comfort Measures: fluid intake increased humidification temperature decreased lightweight bedding Isolation Precautions: precautions maintained contact Goal: Effective Oxygenation and Ventilation Outcome: Ongoing, Progressing Intervention: Promote Airway Secretion Clearance Flowsheets (Taken 12/22/2024 110) Activity Management: activity adjusted per tolerance activity encouraged sitting, edge of bed Breathing Techniques/Airway Clearance: other (see comments) airway clearance techniques utilized pursed-lip breathing encouraged Cough And Deep Breathing: education provided Intervention: Optimize Oxygenation and Ventilation Flowsheets (Taken 12/22/2024 110) Airway/Ventilation Management: calming measures promoted position adjusted [...] Intervention: Prevent or Manage Pain Flowsheets (Taken 12/22/20241105) Pain Management Interventions: breathing [...] Prevent or Manage Infection Flowsheets (Taken 12/22/2024 1106) Infection Management: aseptic technique maintained Fever Reduction/Comfort [...] Goal (Individualized) Outcome: Ongoing, Progressing Flowsheets (Taken 12/21/2024 2100) Patient/Family-Specific Goals (Include Timeframe): Pt/fam will be [...] Identify and Manage Fall Risk Flowsheets (Taken 12/21/2024 2100) Safety Promotion/Fall Prevention: activity supervised assistive device/personal [...] glucose monitored * Care Plan - Emily Vera RN - 12/21/2024 7:18 PM EDT Problem: Fall Injury Risk Goal: Absence of Fall and Fall-Related Injury Intervention: Promote Injury-Free Environment Flowsheets (Taken 12/21/20241916) Safety Promotion/Fall Prevention: activity supervised assistive device/personal items within reach nonskid shoes/slippers when out of bed Problem: Wound Goal: Optimal Functional Ability Intervention: Optimize Functional Ability Flowsheets Taken 12/21/20241916 by Emily Vera, RN Activity Management: ambulated to bathroom Taken 12/20/20242014 by Rufus Florez, RN Activity Assistance Provided: assistance, stand-by Problem: Diabetes Goal: Minimize Hypoglycemia Risk Intervention: Minimize and Manage Hypoglycemia Flowsheets (Taken 12/21/20241916) Hypoglycemia Management: blood glucose monitored * Progress Notes - Vonnie Gutierrez RN - 12/21/2024 2:38 PM EDT Case Management Adult Progress Note Teresa Rivera 64 y.o. female CSN: [id number] Admission: 12/15/2024 8:36 PM Primary Problem: Dyspnea [...] home health referrals. 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 Patient requesting to come to [place] for PICC care and lab draws. RNCM set up with [facility] office. PT/OT recommend home with 24 assist and home health PT/OT. Will give outpatient PT/OT script due [facility] home health available. RNCM will continue to monitor for further discharge needs. Vonnie Gutierrez RN * Zachary Ford - Nahomi Purdy, VeritoD - 12/21/2024 2:00 PM EDT Images from [...] to dispose of used syringes. * [facility] - Nahomi Purdy, PharmD - 12/21/2024 1:59 PM EDT Images from the original note were not included. [id number] Enoxaparin Injection IMPORTANT WARNING: If you have [...] be awakened, immediately call emergency services at [phone]. What OTHER INFORMATION should I know? Keep [...] of all of the prescription and nonprescription (wvdi-cfq-csmeuvj) medicines, vitamins, minerals, and dietary supplements you [...] or pharmacist about specific clinical use. The [employer] represents that the information provided hereunder was formulated with a reasonable standard of care, and in conformity with professional standards in the field. The [place] makes no representations or warranties, express or implied, including, but not limited to, any implied warranty of merchantability and/or fitness for a particular purpose, with respect to such information and specifically disclaims all such warranties. Users are advised that decisions regarding drug therapy are complex medical decisions requiring the independent, informed decision of an appropriate health care specialist, and the information is provided for informational purposes only. The entire monograph for a drug should be reviewed for a thorough understanding of the drug's actions, uses and side effects. The [place] does not endorse or recommend the use of any drug.The information is not a substitute for medical care. AHFS?? Patient Medication Information?. ?? Copyright, 2023. The [employer] [place]??, [address], [address], [place], [place]. All Rights Reserved. Duplication for commercial use must be authorized by [facility]. Selected Revisions: December 05, 2023. AHFS?? 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 lung mass concerning for pneumonia vs [...] ACEI Restart lasix Seizure - Treated with [facility] inpatient, no refill history on discharge - [...] Review Outcome: Ongoing, Progressing Flowsheets (Taken 12/21/2024 0229) Progress: improving Outcome Evaluation: Can pt identify [...] Manage VTE (Venous Thromboembolism) Risk Flowsheets (Taken 12/21/2024) VTE Prevention/Management: medication Intervention: Prevent Infection Flowsheets (Taken 12/20/20241) Infection Prevention: hand hygiene promoted environmental surveillance performed rest/sleep promoted single patient room provided Goal: Optimal Comfort and Wellbeing Outcome: Ongoing, Progressing Intervention: Provide Person-Centered Care Flowsheets (Taken 12/20/20241) Trust Relationship/Rapport: care explained choices provided empathic listening provided Problem: Fall Injury Risk Goal: Absence of Fall and Fall-Related Injury Outcome: Ongoing, Progressing Intervention: Identify and Manage Contributors Flowsheets Taken 12/21/2024228 by Rufus Florez rn wellness Review/Management: medications reviewed Taken 12/20/202425 by Daphnie Perez, RN Self-Care Promotion: BADL personal objects within [...] Progressing Intervention: Optimize Tissue Perfusion Flowsheets Taken 12/21/2024228 Bleeding Precautions: blood pressure closely monitored coagulation study results reviewed foot protection facilitated gentle oral care promoted monitored for signs of bleeding Taken 12/21/2024 0000 VTE Prevention/Management: medication Goal: Optimal Right Ventricular Function Outcome: Ongoing, Progressing Intervention: Optimal Blood Flow Flowsheets (Taken 12/21/2024 022) Stabilization Measures: legs elevated * Progress Notes [...] MD Resident Physician PGY-1 Department of Neurosurgery [facility] Cosigned by Abhilash Bangura MD at 12/21/2024 [...] Progress Note Teresa Rivera 64 y.o. female [facility]: [id number] Admission: 12/15/2024 8:36 PM Primary Problem: Dyspnea [...] on 12/18 per neurosurgery. Ongoing discussion with application development consultant teams to determine timing of resuming oral anticoagulation as well as when to resume outpatient chemotherapy. PT & OTare consulted. 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 -resolved Seizure - Treated with [facility] inpatient, no [...] Please fax all labs to: Fax #: [phone] Appointments: Lia Barnes ([place]) 01/05 at 1 PM, 01/26 at 4:30 at: [facility]: [address] [place] [address] (Select Option 3 for IV Antibiotic / PICC line related issues) For questions regarding OPAT prior to discharge, reach out to the OPAT team via [employer] Secure Chat (Group: OPAT Referral Team). For all questions regarding OPAT after discharge should be directed to the OPAT Team at (Select Option 3 for IV Antibiotics/PICC Issues) between 8am-5pm. After 5 pm, or during weekends/ holidays, please call the paging cleaning and washing equipment operator at to reach the on-call ID [...] ??F) Oral 62 -- 96 % -- 12/19/24 1940 -- -- -- -- 20 -- -- [...] is no recent study available for direct kltb-mw-rqkg comparison. XR Chest 1 View Result Date: [...] culture (incluidng anerobic, AFB and fungal) PsA 8 Intra-operative swab culture (including anerobic, AFB, Fungal) PsA 8 Resp culture poor quality 12/16 Urine strep [...] had a respiratory culture that grew MDR PRODUCTION PROOFREADER pseudomonas. She is now here with concern for postobstructive pneumonia and craniotomy surgical site infection. Blood cultures are NGTD. Patient ultimately had OR washout on 12/16 with NSGY with purulence/signs of infection associated with and below bone flap. Intra-operative cultures (+) PsA. PROBLEM LIST Craniotomy surgical site infection Pneumonia with history of MDR/PRODUCTION PROOFREADER organism Multiple bilateral PE Small cell lung [...] PA-C Division of Infectious Diseases Available on [employer] Chat History, assessment, and plan discussed with ID attending, Dr. Shearer [1] Current Facility-Administered Medications Medication Dose Route Frequency Provider Last Rate Last Admin acetaminophen (Tylenol) tablet 650 mg 650 mg Oral q6h PRN Lisa Lloyd, DO 650 mg at 12/19/24 1022 atorvastatin (Lipitor) tablet 40 mg 40 mg Oral q PM Gordy Purvis APRN DNP 40 mg at 12/19/24 1752 cefepime (Maxipime) 2 g in sodium chloride 0.9% 100 mL IVPB (vial adapter required) 2 g [id number] Lisa Lloyd, DO 36.7 mL/hr at 12/20/24 0956 2 g at 12/20/24 0956 cetirizine (ZyrTEC) tablet 10 mg 10 mg Oral Daily Gordy Purvis APRN, DNP 10 mg at 12/20/24 0955 glucose (Glutose) 40 % oral gel 15-30 grams of glucose 15-30 grams of glucose Sublingual q15 min PRN Gordy Purvis APRN, DNP Or dextrose 10 % (D10W) bolus 125 mL 125 mL Intravenous q15 min PRN Gordy Purvis APRN, DNP Or dextrose 10 % (D10W) bolus 250 mL 250 mL Intravenous q15 min PRN Gordy Purvis APRN, DNP Or glucagon (human recombinant) injection 1 mg 1 mg Intramuscular q15 min PRN Gordy Purvis APRN, [place] diphenhydrAMINE (Benadryl) tablet 25 mg 25 mg Oral q8h PRN Lisa Llyod, DO 25 mg at 12/19/24 1414 FLUoxetine [...] mg 25 mg Oral TID PRN Lisa Lloyd, DO 25 mg at 12/19/242055 insulin glargine-yfgn 100 UNIT/ML injection 5 Units [...] DO 50 mg at 12/20/24 0955 Tiotropium [place] Monohydrate (Spiriva Respimat) 2.5 MCG/ACT inhaler 2 [...] Lisa Lloyd, DO 1 Application at 12/20/24 0955 oxyCODONE (Roxicodone) immediate release tablet 5 mg 5 mg Oral q4h PRN Lisa Lloyd, DO 5 mg at 12/18/242046 Or oxyCODONE (Roxicodone) immediate release tablet 10 mg 10 mg Oral q4h PRN Lisa Lloyd, DO 10 mg at 12/19/24 1022 pantoprazole (Protonix) EC tablet 40 mg 40 mg Oral Daily Gordy Purvis APRN, DNP 40 mg at 12/20/24 0955 prochlorperazine (Compazine) tablet 10 mg 10 mg Oral q6h PRN Gordy Purvis APRN, DNP sodium chloride 0.9 % flush 10 mL 10 mL Intravenous q12h Gordy Purvis APRN, DNP 10 mL at 12/20/24 0220 And sodium chloride 0.9 % flush 10 mL 10 mL Intravenous PRN Madujibeya, Gordy N, PRODUCTION ILLUSTRATOR, DNP sodium chloride 0.9 % flush 10 [...] embolism 12/16/2024 COPD (chronic obstructive pulmonary disease) ([facility]) 10/25/2024 Small cell lung cancer ([facility]) 09/09/2024 Anemia 09/06/2024 Morbid obesity with BMI of 40.0-44.9, adult ([facility]) 09/02/2024 Pneumonia 08/05/2024 Type 2 diabetes mellitus without complications 08/24/2014 Diabetes mellitus ([facility]) 08/25/2013 Incisional infection 12/15/2024 Procedures 12/16/2024 Procedure(s): IRRIGATION AND DEBRIDEMENT, WOUND Past Medical History Patient has a past medical history of A-fib ([facility]), Anxiety, Brain tumor ([facility]), Chemotherapy-induced nausea and vomiting (08/28/2023), COPD (chronic obstructive pulmonary disease) ([facility]), Depression, Heart failure, Hyperlipidemia, Hypertension, Osteoarthritis, Pneumonia, Small cell lung cancer ([facility]), and Type 2 diabetes mellitus. Past Surgical [...] Present: Yes Family/Caregiver: Other (Specify) (pt's sister) Teacher Kindergarten: Not Applicable Presentation Oxygen Therapy: Supplemental oxygen [...] Level of Mobility: Ambulatory- household only Mobility Gage: Independent gait with device History of Falls: [...] Mobility Bed Mobility Exam: Scooting/Bridging Level of Gage: Contact guard (to EOB) Physical/Nonphysical Assist: Supervision, Verbal Cues Assistive Device: Bed rails Bed Mobility Exam: Supine to Sit Level of Gage: Contact guard Physical/Nonphysical Assist: Supervision, Verbal Cues Assistive Device: Bed rails Transfers Transfer Exam: Sit to stand Level of Gage: Contact guard Physical/Nonphysical Assist: Supervision, Verbal Cues Assistive Device: Walker, rolling Transfer Exam: Stand to Sit Level of Gage: Contact guard Physical/Nonphysical Assist: Supervision, Verbal Cues [...] Where Assessed: Edge of bed Standardized Assessments [facility] 6-Click Daily Activities Help from Other: Don/Doff Regular Lower Body Clothings: Little Help From Other: Bathing: Little Help From Other: Toileting: Little Help From Other: Don/Doff Upper Body Clothings: None Help From Other: Grooming: None Help From Other: Eating Meals: None [facility] 6 Click - Daily Activities Score: 21 [...] embolism 12/16/2024 COPD (chronic obstructive pulmonary disease) [place] 10/25/2024 Small cell lung cancer ([facility]) 09/09/2024 Anemia 09/06/2024 Morbid obesity with BMI of 40.0-44.9, adult ([facility]) 09/02/2024 Pneumonia 08/05/2024 Type 2 diabetes mellitus without complications 08/24/2014 Diabetes mellitus ([facility]) 08/25/2013 Incisional infection 12/15/2024 Procedures 12/16/2024 Procedure(s): IRRIGATION AND DEBRIDEMENT, WOUND Past Medical History Patient has a past medical history of A-fib ([facility]), Anxiety, Brain tumor ([facility]), Chemotherapy-induced nausea and vomiting (08/28/2023), COPD (chronic obstructive pulmonary disease) ([facility]), Depression, Heart failure, Hyperlipidemia, Hypertension, Osteoarthritis, Pneumonia, Small cell lung cancer ([facility]), and Type 2 diabetes mellitus. Past Surgical History Patient has a past surgical history that includes Tubal ligation (N/A); Tympanostomy tube placement(N/A); and Brain surgery. Precautions Medical Precautions: Fall precautions, Seizure precautions Medical Precautions: contact Subjective Patient agreeable to PT Evaluation. Patient reported hoping to drink a V8. Participants in Care Family/Caregiver Present: Yes Family/Caregiver: Other (Specify) (Sister) Teacher Kindergarten: Not Applicable Presentation Oxygen Oxygen Therapy: Supplemental [...] Level of Mobility: Ambulatory- household only Mobility Gage: Independent gait with device History of Falls: [...] Mobility Bed Mobility Exam: Scooting/Bridging Level of Gage: Contact guard (to EOB) Physical/Nonphysical Assist: Supervision, Verbal Cues, Minimal cues Assistive Device: Bed rails Bed Mobility Exam: Supine to Sit Level of Gage: Contact guard Physical/Nonphysical Assist: Supervision, Verbal Cues, Minimal cues Assistive Device: Bed rails Verbal/tactile cues provided to use bed rails to assist with performing safe transfers. Patient demonstrated understanding. Transfers Transfer Exam: Sit to stand Level of Gage: Contact guard Physical/Nonphysical Assist: Supervision, Verbal Cues, Minimal cues Assistive Device: Walker, rolling Transfer Exam: Stand to Sit Level of Gage: Contact guard Physical/Nonphysical Assist: Supervision, Verbal Cues, [...] guard Standardized Assessments Standardized Assessments Standardized Assessments: [facility] 6-Clicks Mobility Assessment [facility] 6-Clicks Mobility Assessment Difficulty patient has turning [...] 3-5 steps with a railing?: A lot [facility] 6-Clicks Mobility Assessment Total : 17 Assessment [...] PM. * Progress Notes - Summer Eisenberg, PRODUCTION ILLUSTRATOR, DNP - 12/20/2024 9:30 AM EDT Medical [...] cell lung cancer with resected oligometasis to STRUCTURAL IRON WORKER RUL lung mass concerning for pneumonia vs [...] Eisenberg APRN, DNP Division of Medical Oncology [address] [place] [address], [place] [phone] * Care Plan - Daphnie Perez RN - 12/20/2024 7:26 AM EDT Problem: Adult Inpatient Plan of Care Goal: Plan of Care Review Outcome: Ongoing, Progressing Goal: Patient-Specific Goal (Individualized) Outcome: Ongoing, Progressing Goal: Absence of Hospital-Acquired Illness or Injury Outcome: Ongoing, Progressing Intervention: Identify and Manage Fall Risk Flowsheets (Taken 12/20/2024724) Safety Promotion/Fall Prevention: activity supervised assistive device/personal items within reach clutter-free environment maintained Goal: Optimal Comfort and Wellbeing Outcome: Ongoing, Progressing Problem: Fall Injury Risk Goal: Absence of Fall and Fall-Related Injury Outcome: Ongoing, Progressing Intervention: Identify and Manage Contributors Flowsheets (Taken 12/20/2024724) Medication Review/Management: medications reviewed Self-Care Promotion: BADL [...] Care Review Outcome: Ongoing, Progressing Flowsheets (Taken 12/20/2024250) Progress: improving Outcome Evaluation: does pt understand [...] scheduled Intervention: Prevent Skin Injury Flowsheets Taken 12/20/2024250 Skin Protection: protective footwear used transparent dressing maintained Taken 12/20/2024 0100 Body Position: weight shifting Intervention: Prevent and Manage VTE (Venous Thromboembolism) Risk Flowsheets (Taken 12/19/20242044) VTE Prevention/Management: medication Intervention: Prevent Infection Flowsheets (Taken 12/20/2024250) Infection Prevention: hand hygiene promoted environmental surveillance performed rest/sleep promoted single patient room provided Goal: Optimal Comfort and Wellbeing Outcome: Ongoing, Progressing Intervention: Provide Person-Centered Care Flowsheets (Taken 12/20/2024250) Trust Relationship/Rapport: care explained choices provided empathic listening provided Problem: Fall Injury Risk Goal: Absence of Fall and Fall-Related Injury Outcome: Ongoing, Progressing Intervention: Identify and Manage Contributors Flowsheets Taken 12/20/2024250 by Rufus Florez RN Self-Care Promotion: independence encouraged BADL personal objects within reach BADL personal routines maintained Taken 12/19/2024 0751 by Daphnie Perez RN Medication Review/Management: medications [...] Monitor and Manage Fluid Balance Flowsheets (Taken 12/20/2024 025) Fluid/Electrolyte Management: fluids adjusted Goal: Absence of Infection Signs and Symptoms Outcome: Ongoing, Progressing Intervention: Prevent Infection Progression Flowsheets Taken 12/20/2024 025 by Rufus Florez RN Infection Management: aseptic [...] from the original note were not included. [id number] PICC Line Care PICC stands for peripherally [...] arm Last Reviewed Date: 2024 00:00:00 ?? [id number] [employer]. All rights reserved. This information is not intended as a substitute for professional medical care. Always follow your healthcare professional's instructions. * Cynthia Luz RN - 12/19/2024 4:08 PM EDT Images from the original note were not included. [id number] * Cynthia Luz RN - 12/19/2024 4:08 PM EDT Images from the original note were not included. [id number] * Cynthia Luz RN - 12/19/2024 4:08 [...] your house or a medical facility. The geriatric case manager/social work professor will setthat up [...] p.m. ? After 5 p.m. or during weekends/[place] holidays, call the paging cleaning and washing equipment operator at . Ask for the infectious disease fellow civil engineering professional. Call the clinic if you have any of these: ? Fevers greater than 100.5??F ? An allergic reaction, such as rash ? Nausea, vomiting, or diarrhea ? New or returning redness near the IV line ? Redness, pain, swelling, or pus around the IV line * Zachary Ford - Cynthia Tilley RN - 12/19/2024 4:08 PM EDT Images from the original note were not included. [id number] Flushing Your PICC Line at Home Your [...] soap and water, use an alcohol-based hand oil transport driver. The gel should have at least 60% [...] Put the syringe into a special container (Airbnbs container). When to contact your doctor Contact [...] PICC. Last Reviewed Date: 2024 00:00:00 ?? [id number] [employer]. All rights reserved. This information is not intended as a substitute for professional medical care. Always follow your healthcare professional's instructions. * Zachary LeahyBRETT - Cynthia Tilley RN - 12/19/2024 4:08 PM EDT Images from the original note were not included. [id number] Cefepime Injection WHY is this medicine prescribed? [...] of all of the prescription and nonprescription (ohjh-mko-eoflzsy) medicines, vitamins, minerals, and dietary supplements you [...] or pharmacist about specific clinical use. The [employer] represents that the information provided hereunder was formulated with a reasonable standard of care, and in conformity with professional standards in the field. The [employer] makes no representations or warranties, express or implied, including, but not limited to, any implied warranty of merchantability and/or fitness for a particular purpose, with respect to such information and specifically disclaims all such warranties. Users are advised that decisions regarding drug therapy are complex medical decisions requiring the independent, informed decision of an appropriate health care specialist, and the information is provided for informational purposes only. The entire monograph for a drug should be reviewed for a thorough understanding of the drug's actions, uses and side effects. The [employer] does not endorse or recommend the use of any drug.The information is not a substitute for medical care. AHFS?? Patient Medication Information?. ?? Copyright, 2023. The [employer]??, [address], [address], [place], [place]. All Rights Reserved. Duplication for commercial use must be authorized by [facility]. Selected Revisions: October 31, 2015. AHFS?? Patient Medication Information?. ?? Copyright, 2024 * [facility] OnFORMERLY [facility] - Cynthia Tilley RN - 12/19/2024 4:08 PM EDT Images from the original note were not included. 42172 Central Line Infections You need a central [...] water. Or they use an alcohol-based hand oil transport driver containing at least 60% alcohol. ? Using [...] (warm or cold), and use alcohol-based hand oil transport driver with at least 60% alcohol as directed. To clean your hands well,follow the guidelines on this sheet. Visitors should wash their hands well when they arrive and when they leave. ? Make sure the health care staff and your visitors clean their hands. They should use soap and clean, running water or an alcohol-based hand oil transport driver before and after checking the line. Don?t [...] good choice for cleaning your hands. The oil transport driver should have at least 60% alcohol. Note that some germs can't be killed by alcohol. Your care team can answer any questions you have about when to use a hand oil transport driver, or when it?s better to wash with soap and water. Follow these steps: ? Spread the hand oil transport driver in the palm of one hand. (Check the package for specific guidelines.) ? Rub your hands together briskly. Clean the backs of your hands, the palms, between your fingers, and up your wrists. ? Rub until the oil transport driver is gone and your hands are completely [...] skin. Last Reviewed Date: 2024 00:00:00 ?? 6319-2438 [employer]. All rights reserved. This information is not [...] Lumen PICC Patient Specific Out[address] Circumstances[address] [place] [address] (patients home address) Patient will be staying with her sister Era at: [address] [facility] Family Support: Extended Emergency Contact Information Primary Emergency Contact: Zachary Rivera Mobile Relation: Son Preferred language: Yemeni Teacher Kindergarten needed? No Secondary Emergency Contact: Aurora Rivera Mobile Relation: Daughter Preferred language: Yemeni Teacher Kindergarten needed? No Contact information: Teresa Rivera [phone] Outpatient services (including home infusion, home health, facility referral: See recent case management/social work note for finalization of services ID follow up appointment: Future Appointments Date Time Provider Department Center 01/19/2025 9:20 AM MR 2 [facility] 01/19/2025 10:45 AM [facility] 03/08/2025 1:00 PM Teresita Oconnell MD [facility] Patient Assessment I spoke with patient at [...] via secure chat or staff messaging in [place]. Patient and family will need to be [...] Note Teresa Rivera 64 y.o. female CSN: [id number] Admission: 12/15/2024 8:36 PM Primary Problem: Dyspnea [...] ??F) Oral 71 -- 98 % -- 12/18/24 1925 -- 36.9 ??C (98.4 ??F) Oral -- -- -- -- 12/18/24 1921 136/77 -- -- 70 -- -- -- [...] is no recent study available for direct ueka-wa-fsfe comparison. XR Chest 1 View Result Date: [...] had a respiratory culture that grew MDR PRODUCTION PROOFREADER pseudomonas. She is now here with concern for postobstructive pneumonia and craniotomy surgical site infection. Blood cultures are NGTD. Patient ultimately had OR washout on 12/16 with NSGY with purulence/signs of infection associated with and below bone flap. Intra-operative cultures (+) PsA. PROBLEM LIST Craniotomy surgical site infection Pneumonia with history of MDR/PRODUCTION PROOFREADER organism Multiple bilateral PE Small cell lung [...] PA-C Division of Infectious Diseases Available on [facility] Chat History, assessment, and plan discussed with ID attending, Dr. Shearer [1] Current Facility-Administered Medications Medication Dose Route Frequency Provider Last Rate Last Admin acetaminophen (Tylenol) tablet 650 mg 650 mg Oral q6h PRN Lisa Lloyd C, DO 650 mg at 12/19/24 1022 atorvastatin (Lipitor) tablet 40 mg 40 mg Oral q PM Madujibeya, Gordy N, PRODUCTION ILLUSTRATOR, DNP 40 mg at 12/18/24 1702 cefepime (Maxipime) 2 g in sodium chloride 0.9% 100 mL IVPB (vial adapter required) 2 g [id number] Lisa Lloyd C, DO 36.7 mL/hr at 12/19/24 1023 2 g at 12/19/24 1023 cetirizine (ZyrTEC) tablet 10 mg 10 mg Oral Daily Madujibeya, Gordy N, PRODUCTION ILLUSTRATOR, DNP 10 mg at 12/19/24 0837 glucose (Glutose) 40 % oral gel 15-30 grams of glucose 15-30 grams of glucose Sublingual q15 min PRN Madujibeya, Gordy N, PRODUCTION ILLUSTRATOR, DNP Or dextrose 10 % (D10W) bolus 125 mL 125 mL Intravenous q15 min PRN Madujibeya, Gordy N, PRODUCTION ILLUSTRATOR, DNP Or dextrose 10 % (D10W) bolus 250 mL 250 mL Intravenous q15 min PRN Madujibeya, Gordy N, PRODUCTION ILLUSTRATOR, DNP Or glucagon (human recombinant) injection 1 mg 1 mg Intramuscular q15 min PRN Madujibeya, Gordy N, PRODUCTION ILLUSTRATOR, DNP diphenhydrAMINE (Benadryl) tablet 25 mg 25 mg Oral q8h PRN Lisa Lloyd C, DO 25 mg at 12/17/24 1853 FLUoxetine (PROzac) capsule 40 mg 40 mg Oral Daily Lisa Lloyd C, DO 40 mg at 12/19/24 0837 heparin [...] DO 500 mg at 12/19/24 0837 Tiotropium [place] Monohydrate (Spiriva Respimat) 2.5 MCG/ACT inhaler 2 [...] PRN Lisa Lloyd, DO 5 mg at 12/18/247 Or oxyCODONE (Roxicodone) immediate release tablet 10 mg 10 mg Oral q4h PRN Lisa Lloyd, DO 10 mg at 12/19/24 1022 pantoprazole (Protonix) EC tablet 40 mg 40 mg Oral Daily Hyun Gordy N, PRODUCTION ILLUSTRATOR, DNP 40 mg at 12/19/24 0837 prochlorperazine (Compazine) tablet 10 mg 10 mg Oral q6h PRN Madujibeya, Gordy N, PRODUCTION ILLUSTRATOR, DNP sodium chloride 0.9 % flush 10 mL 10 mL Intravenous q12h Madujibeya, Gordy N, PRODUCTION ILLUSTRATOR, DNP 10 mL at 12/19/24 0207 And sodium chloride 0.9 % flush 10 mL 10 mL Intravenous PRN Madujibeya, Gordy N, PRODUCTION ILLUSTRATOR, DNP sodium chloride 0.9 % flush 10 mL 10 mL Intravenous q12h Lisa Lloyd, DO 10 mL at 12/19/24 1200 sodium chloride 0.9 % flush 10 mL 10 mL Intravenous q1h PRN Lisa Lloyd C, DO sodium chloride 0.9 % flush [...] on 12/18 per neurosurgery. Ongoing discussion with application development consultant teams to determine timing of resuming oral anticoagulation as well as when to resume outpatient chemotherapy. PT & OTare consulted. 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 lung mass concerning for pneumonia vs [...] of Hospital Medicine Epic Chat Preferred Pager: [phone] 12/19/2024 [1] atorvastatin, 40 mg, Oral, q PM cefepime, 2 g, Intravenous, q8h cetirizine, 10 mg, Oral, Daily FLUoxetine, 40 mg, Oral, Daily insulin glargine-yfgn, 5 Units, Subcutaneous, Nightly levETIRAcetam, 1,000 mg, Oral, BID magnesium sulfate, 2 g, Intravenous, Once metoprolol tartrate, 50 mg, Oral, TID metroNIDAZOLE, 500 mg, Oral, q8h Tiotropium [place] Monohydrate, 2 puff, Inhalation, Daily And mometasone-formoterol, [...] and Manage Fall Risk Flowsheets (Taken 12/19/2024 0751) Safety Promotion/Fall Prevention: activity supervised Goal: Optimal Comfort and Wellbeing Outcome: Ongoing, Progressing Problem: Fall Injury Risk Goal: Absence of Fall and Fall-Related Injury Outcome: Ongoing, Progressing Intervention: Identify and Manage Contributors Flowsheets (Taken 12/19/2024 0751) Medication Review/Management: medications reviewed Self-Care Promotion: BADL [...] Monitor Pain and Promote Comfort Flowsheets (Taken 12/19/2024 0625) Pain Management Interventions: medication (see MAR) Problem: Fall Injury Risk Goal: Absence of Fall and Fall-Related Injury Outcome: Ongoing, Progressing Intervention: Identify and Manage Contributors Flowsheets (Taken 12/18/2024 1154 by Zoraida Frias) Medication Review/Management: medications reviewed Self-Care Promotion: independence encouraged BADL personal routines maintained Problem: Wound Goal: Optimal Coping Outcome: Ongoing, Progressing Intervention: Support Patient and Family Response Flowsheets Taken 12/19/2024 0651 by Ammy Prather RN Supportive Measures: active listening utilized Taken 12/18/2024 011 by Mitzi Porter RN Family/Support System Care: [...] Intervention: Prevent or Manage Pain Flowsheets Taken 12/19/2024 0625 by Ammy Prather RN Pain Management Interventions: medication (see MAR) Taken 12/18/2024 011 by Mitzi Porter RN Sleep/Rest Enhancement: awakenings [...] Monitor and Manage Fluid Balance Flowsheets (Taken 12/19/2024 0651) Fluid/Electrolyte Management: fluids adjusted Goal: Absence of [...] Please call with any questions or concerns. [phone] Félix Duval MD Resident Physician PGY-1 Department of Neurosurgery [facility] Cosigned by Abhilash Bangura MD at 12/19/2024 [...] by: Brian Dai RN Authorized by: Lisa Lloyd, [place] Protocol: Verbal consent obtained?: Yes Written consent [...] Left Location (Adult): Basilic vein (Largest vein, xerswldd-nd-luyw ratio 18%.) Site selection rationale: Infiltration from PIV in RUE. Patient position: Supine Catheter Lot #: [id number] Catheter oil tester: [place] Power PICC Provena Catheter with Solo Valve Catheter placed: Double lumen Catheter size: 4 Fr Catheter trimmed length: 48 Catheter threaded length: 48 Vein placed in: SVC Catheter cm indwellin Catheter cm outside: 0 Placement confirmed by: Sherlock 3CG technology Pre-procedure: Landmarks identified Ultrasound guidance: [...] sinus rhythm at time of PICC placement), gaurav to use order will be placed. [place] limb precaution armband placed on left wrist [...] pressure closely monitored * Procedures - Cynthia Jorge RN - 12/18/2024 9:58 AM EDTAssociated Order(s): [...] 7 days Lab Units 12/18/24 0516 12/17/24 21512/17/24 1522 12/16/24 0552 WBC 10*3/uL 7.00 -- [...] cell lung cancer with resected oligmetastasis to STRUCTURAL IRON WORKER RUL lung mass concerning for pneumonia vs [...] DO Department of Internal Medicine Division of [facility] Medicine Epic Chat Preferred Pager: [phone] 12/18/2024 [1] atorvastatin, 40 mg, Oral, q PM cefepime, 2 g, Intravenous, q12h cetirizine, 10 mg, Oral, Daily FLUoxetine, 40 mg, Oral, Daily insulin glargine-yfgn, 5 Units, Subcutaneous, Nightly levETIRAcetam, 1,000 mg, Oral, BID metoprolol tartrate, 25 mg, Oral, TID metroNIDAZOLE, 500 mg, Oral, q8h Tiotropium [place] Monohydrate, 2 puff, Inhalation, Daily And mometasone-formoterol, [...] Please call with any questions or concerns. [phone] Crystal Vuong MD Resident Physician, PGY-2 Department of Neurosurgery [facility] Cosigned by Abhilash Bangura MD at 12/19/2024 9:20 AM EDT [...] Review Outcome: Ongoing, Progressing Flowsheets (Taken 12/18/2024 011) Progress: no change Plan of Care Reviewed With: patient Goal: Patient-Specific Goal (Individualized) Outcome: Ongoing, Progressing Flowsheets (Taken 12/18/2024 011) Patient/Family-Specific Goals (Include Timeframe): Patient will remain [...] Problem: Diabetes Goal: Optimal Coping Outcome: Ongoing, Intervention: Support Wellbeing and Self-Management Success Flowsheets [...] by: Roberto Lobato RN Authorized by: Gordy Purvis, SHARDA, DNP Hand hygiene: Hand hygiene performed prior [...] madeaware as unable to reach any pharmacists. and Rnretimed next abx doses and ordered [...] Please call with any questions or concerns. [phone] Zachary Brown MD Resident Physician, PGY-2 Department of neurosurgery Pager: [phone] Cosigned by Abhilash Bangura MD at 12/19/2024 [...] cell lung cancer with resected oligometasis to STRUCTURAL IRON WORKER RUL lung mass concerning for pneumonia vs [...] confusion. -- --Oncology History--- initially diagnosed with [id number], stage IIIA limited stage of the right [...] by me; any relevant updates made in [facility]. Social History Lives in [place]. Former smoker. Allergies Reviewed by me; any relevant updates made in [facility]. Medications Current Medications[1] Physical Exam Vitals: 12/16/24 [...] Labs, Imaging, and Microbiology Reviewed personally in [facility]. Notable as discussed in Assessment and Plan. [1] Current Facility-Administered Medications: atorvastatin (Lipitor) tablet 40 mg, 40 mg, Oral, q PM, Gordy Purvis APRN, DNP cetirizine (ZyrTEC) tablet 10 mg, 10 mg, Oral, Daily, Gordy Purvis APRN, DNP glucose (Glutose) 40 % oral gel 15-30 grams of glucose, 15-30 grams of glucose, Sublingual, q15 minPRN OR dextrose 10 % (D10W) bolus 125 mL, 125 mL, Intravenous, q15 min PRN OR dextrose 10 %(D10W) bolus 250 mL, 250 mL, Intravenous, q15 min PRN OR glucagon (human recombinant) injection1 mg, 1 mg, Intramuscular, q15 min PRN, Gordy Purvis APRN, DNP [Held by provider] heparin 25,000 units/250 mL (100 unit/mL) infusion - Adult LOW DOSE Protocol, 0-35 Units/kg/hr, Intravenous, Titrated, Jmimy Jones, , Stopped at 12/16/24 0743 insulin glargine-yfgn 100 UNIT/ML injection 5 Units, 5 Units, Subcutaneous, Nightly, Gordy Purvis APRN, DNP ipratropium-albuterol (Duo-Neb) 0.5-2.5 mg/3 mL nebulizer solution 3 mL, 3 mL, Nebulization, q6h PRN, Gordy Purvis APRN, DNP magnesium sulfate IVPB 4 g, 4 g, Intravenous, q4h, Gordy Purvis APRN, DNP, Last Rate: 25 mL/hr at 12/16/24 0826, 4 g at 12/16/24 0826 metoprolol tartrate (Lopressor) tablet 25 mg, 25 mg, Oral, TID, Gordy Purvis APRN, DNP Tiotropium [place] Monohydrate (Spiriva Respimat) 2.5 MCG/ACT inhaler 2 [...] by mouth every evening., Disp: , Rfl: Qkqwwja-Fxgpaclajlr-Tpeoyvnwlq (Breztri Aerosphere) 160-9-4.8 MCG/ACT aerosol, Inhale 2 [...] 36units daily, Disp: , Rfl: nystatin (Mycostatin) [id number] UNIT/GM powder, Apply on bottom 2 times [...] cell lung cancer with resected oligmetastasis to STRUCTURAL IRON WORKER RUL lung mass concerning for pneumonia vs [...] admission without hydronephrosis Seizure [facility] no refill history on discharge - [...] of Hospital Medicine Epic Chat Preferred Pager: [phone] 12/17/2024 [1] atorvastatin, 40 mg, Oral, q PM cefepime, 2 g, Intravenous, q12h cetirizine, 10 mg, Oral, Daily FLUoxetine, 40 mg, Oral, Daily insulin glargine-yfgn, 5 Units, Subcutaneous, Nightly levETIRAcetam, 1,000 mg, Oral, BID metoprolol tartrate, 25 mg, Oral, TID metroNIDAZOLE, 500 mg, Oral, q8h Tiotropium [place] Monohydrate, 2 puff, Inhalation, Daily And mometasone-formoterol, [...] per tolerance Taken 12/16/2024 1300 by Christina Pierce RN Head of Bed (HOB) Positioning: HOB [...] Glucose Level Within Target Range 12/16/20242330 by Catherine Davis RN Outcome: Ongoing, [...] CrCl: ~49 ml/min Pepper Evans PharmD, LAURENCE, BCPS Internal Medicine Clinical Pharmacist * Op Note - Barron Baer MD - 12/16/2024 1:53 PM EDT Operative Note Date: 12/16/24 Location: [place] Name: Teresa Rivera, : 1960, Diagnoses: Pre-op Diagnosis Incisional infection Post-op Diagnosis Incisional infection Procedure(s): Wound washout/revision with craniectomy for infected bone flap Attending Surgeon(s): * Abhilash Bangura - Primary Letter Of Credit Document Examiner(s): * Barron Baer MD - Resident - [...] was then used to remove the titanium platesand screws and the bone flap was elevated. [...] and used a 15 blade to trim the edges of the skin until healthy-appearing skin was present. We then irrigated once again placed van comycin powder in the wound and turned our attention towards closure. The galea was closed using interrupted 2-0 Vicryl stitches. The skin was then closed using alejandro. The incision was then dressedwith bacitracin and Covaderm. At the end of the case all counts were correct and there were no immediate intraoperative complications. The attending physician was present for all cabral portions of the c ase. The patient was then extubated and taken [...] Note Teresa Rivera 64 y.o. female CSN: [id number] Admission: 12/15/2024 8:36 PM Primary Problem: Dyspnea Student Services Vice President reviewed chart to complete this Initial Case Management Assessment. PCP: Laurie Gutierrez MD Emergency Contact: Extended Emergency Contact Information Primary Emergency Contact: Zachary Rivera Mobile Relation: Son Preferred language: Yemeni Teacher Kindergarten needed? No Secondary Emergency Contact: NicoleAurora Mobile Relation: Daughter Preferred language: Yemeni Teacher Kindergarten needed? No Insurance: Primary Visit Coverage Payer Plan Sponsor Code Group Number Group Name [employer] [id number] Primary Visit Coverage Subscriber Subscriber ID Subscriber Name Subscriber SSN Subscriber Address [id number] TERESA RIVERA [id number] [place] [address] Patient information: Primary Caregiver: Self Support System: Immediate family Daily Living Activities: Functional Status: Independent Living Arrangements: Alone Type of Residence: Private residence [address] [place] [address] Current DME: Equipment Currently Used at Home: [...] Dialysis Services: None Living Will/Advance Directive/Power of Pole Peeling Machine Operator /Guardian: None Additional Comments: Patient [...] will continue to follow. Submitted by: Pepper Evans PharmD 12/16/2024 11:58 AM * Consults - [...] ] Family [ ] Friend [ ] Teacher Kindergarten [X] Medical records HISTORY OF PRESENT ILLNESS: [...] - 12/10/24 after having a seizure in [facility]. Some notes about concern for meningitis; underwent [...] note, sputum culture 12/01/24 grew pseudomonas aeruginosis MDR/PRODUCTION PROOFREADER. Neurosurgery was consulted and plans to take [...] Take 1 tablet by mouth every evening. ProviderJef MD Qqxencq-Vrurjuqgrzc-Nzjsqrmhaa (Breztri Aerosphere) 160-9-4.8 MCG/ACT aerosol Inhale 2 [...] 2 times a day with meals. Jef Hendrickson, MD metoprolol tartrate (Lopressor) 25 MG tablet [...] care provider tells you to start again. ProviderJef MD nystatin (Mycostatin) 037732 UNIT/GM powder Apply on bottom 2 times a day 11/08/24 Satnam Colvin MD ondansetron ODT (Zofran-ODT) 4 MG disintegrating tablet Dissolve 1 tablet on the tongue every 6 hours as needed for nausea or vomiting. 12/10/24 Bernice Eckert MD pantoprazole (Protonix) 40 MG EC tablet Take 1 tablet by mouth daily. Do not crush, chew, or split.ProviderJef MD pen needle, diabetic 31G X 5 [...] needed for diaper rash. 10/31/24 12/10/24 Sasha Nuñez, metoprolol tartrate (Lopressor) 50 MG tablet Take 1 tablet by mouth 2 times a day. 11/22/24 12/10/24 Vonnie Bowens MD ofloxacin (Floxin) 0.3 % otic solution 1 (one) time each day at the same time. 11/24/24 12/10/24 ProviderJef MD ondansetron (Zofran) 8 MG tablet Take 1 tablet by mouth 2 times a day. Take on Day 4 of cycle and then take PRN 11/08/24 12/10/24 Satnam Colvin MD Probiotic, Lactobacillus, capsule Take 1 capsule by mouth daily. 11/08/24 12/10/24 Satnam Colvin MD spironolactone (Aldactone) 25 MG tablet Take 1 tablet by mouth. Patient not taking: Reported on 12/01/2024 11/26/24 12/10/24 ProviderJef MD CURRENT MEDICATIONS: Current Medications[4] SOCIAL HISTORY: [...] -- -- (!) 144 -- -- -- 12/16/24421 -- -- -- -- -- -- 113 kg (249 lb 1.9 oz) 12/16/24 0353 -- -- -- -- 23 -- -- 12/16/24 0342 91/51 36.7 ??C (98 ??F) -- 87 24 100 % -- 12/16/24 0204 -- -- -- -- 23 -- -- 12/16/24 0138 118/69 -- -- 89 25 92 % -- 12/16/246 -- -- -- 92 23 94 % -- 12/16/24104 -- -- -- 91 26 95 % -- 12/16/24102 -- -- -- 56 19 95 % -- 12/16/24101 -- -- -- 92 22 95 % -- 12/16/24100 -- -- -- (!) 133 26 96 % -- 12/16/240 -- -- -- (!) 163 24 95 % -- 12/16/24 0045 115/87 -- -- (!) 144 (!) 29 94 % -- 12/16/24 0040 91/54 -- -- (!) 152 24 95 % -- 12/16/248 -- -- -- (!) 149 21 95 % -- 12/16/247 -- -- -- 100 24 96 % -- 12/16/24 0036 -- -- -- (!) 152 26 95 % -- 12/16/245 -- -- -- (!) 163 25 95 % -- 12/16/24 0034 -- -- -- (!) 146 26 95 % -- 12/16/24 0033 -- -- -- 100 24 96 % -- 12/16/242 -- -- -- (!) 150 (!) 27 95 % -- 12/16/241 -- -- -- (!) 157 25 96 % -- 12/16/24 0030 83/65 -- -- (!) 154 26 96 % -- 12/16/245 -- -- -- (!) 160 25 96 [...] Methicillin Resistant Staphylococcus aureus (MRSA) by PCR [[id number]] (Normal) Collected: 12/16/24 0750 Order Status: Completed [...] laboratory testing. Respiratory Culture and Gram Stain [[id number]] (Abnormal) Collected: 12/16/24 0847 Order Status: Completed [...] yeast Streptococcus pneumoniae and Legionella Urinary Antigen [[id number]] (Normal) Collected: 12/16/24 0839 Order Status: Completed Specimen: Urine, Clean Catch Updated: 12/16/24 0945 Legionella pneumophila serogroup 1 Antigen Result (Urine) Negative Streptococcus pneumoniae Antigen Result (Urine) Negative Multi Drug Resistance Test [[id number]] Collected: 12/16/24 0750 Order Status: Sent Specimen: Swab from Nares and Carole Rectal Updated: 12/16/24 0845 Blood Culture (Aerobic/Anaerobet Set) [[id number]] Collected: 12/16/24 0552 Order Status: Completed Specimen: Blood, Venous Updated: 12/16/24 0819 Culture Culture in lab Narrative: Low blood volume submitted, results may be compromised Blood Culture (Aerobic/Anaerobet Set) [[id number]] Collected: 12/15/24 2318 Order Status: Completed Specimen: Blood, Venous Updated: 12/16/24 0301 Culture Culture in lab Nasopharyngeal Respiratory Panel [[id number]] (Normal) Collected: 07/31/25 2319 Order Status: Completed Specimen: Swab from Nasopharynx [...] Respiratory PCR Panel is performed using the Procura instrument. This test is FDA approved for use with Nasopharyngeal swabs only. This test is used for clinical purposes. It should not be regarded as investigational or for research. The [facility] is certified under the Clinical Laboratory Improvement Amendments of 1988 (CLIA-88) as qualified to perform high complexity clinical laboratory testing. SARS CoV-2/COVID-19 by PCR - Rapid [[id number]] (Normal) Collected: 12/15/242318 Order Status: Completed Specimen: [...] This test was performed on the Xpert XpSolarReserve SARS CoV-2 Plus assay test, a PCR- based method. Negative results should be considered presumptive and do not preclude current or future infection obtained through community transmission or other exposures. Negative results must be considered in the context of an individual's recent exposures, history, presence of clinical signs and symptoms consistent with COVID-19. SARS-CoV-2, Flu A, Flu B, and RSV - Rapid [[id number]] Order Status: Canceled Specimen: Swab from Nasopharynx [...] had a respiratory culture that grew MDR PRODUCTION PROOFREADER pseudomonas. She is now here with concern for postobstructive pneumonia and craniotomy surgical site infection. Blood cultures are pending. She was started on zosyn. Neurosurgery was taking her on 12/16 for a washout of her craniotomy site. 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 ID will follow. Mariah Hurley PA-C Division of Infectious Diseases Available on [employer] History, assessment, and plan discussed with ID attending, Dr. Omar VASQUEZ attestation - Today, I am treating the [...] [1] Past Medical History: Diagnosis Date A-fib ([facility]/HCC) Anxiety Brain tumor ([facility]/HCC) Chemotherapy-induced nausea and vomiting 08/28/2023 COPD (chronic obstructive pulmonary disease) ([facility]) Depression Heart failure Hyperlipidemia Hypertension Osteoarthritis Pneumonia Small cell lung cancer ([facility]/HCC) Type 2 diabetes mellitus [2] Past Surgical History: Procedure Laterality Date BRAIN SURGERY TUBAL LIGATION N/A Tubal Ligation from mySkin TYMPANOSTOMY TUBE PLACEMENT N/A Ear Surgery Eustachian Tube from mySkin [3] Allergies Allergen Reactions Cephalexin Nausea and [...] mL 125 mL Intravenous q15 min PRN Gordy Purvis [...] DOSE Protocol 0-35 Units/kg/hr Intravenous Titrated Jimmy Jones DO Stopped at 12/16/24 0743 insulin glargine-yfgn 100 [...] Oral TID Gordy Purvis APRN, DNP Tiotropium [place] Monohydrate (Spiriva Respimat) 2.5 MCG/ACT inhaler 2 [...] flush 10 mL 10 mL Intravenous PRN Goryd Purvis APRN, DNP Current Outpatient Medications Medication Sig Dispense Refill acetaminophen (Tylenol) 325 MG tablet Take 2 tablets by mouth every 6 hours. Under [employer] law, monthly prescriptions (30 days) can be refilled at 25 days and three-month prescriptions (90 days) at 80 days. Please contact the insurance company with questions if refills are denied. (Patient taking differently: Take 2 tablets by mouth every 6 hours.) 100 tablet 0 atorvastatin (Lipitor) 40 MG tablet Take 1 tablet by mouth every evening. Hgjtmyi-Jrnfpqwrkso-Nkfyebvcjm (Breztri Aerosphere) 160-9-4.8 MCG/ACT aerosol Inhale 2 [...] 399=12units max of 36units daily nystatin (Mycostatin) 540925 UNIT/GM powder Apply on bottom 2 times [...] AM. A/P: Post obstructive pneumonia, history of MDR/PRODUCTION PROOFREADER organism Acute on chronic hypoxic respiratory failure [...] per protocol - will further discuss ongoing residential anticoagulation with neurosurgery and with oncology Stage [...] Etiology remains unclear Seizure - Treated with Keppra inpatient, no [...] patient * H&P - Gordy Purvis APRN, DNP - 12/16/2024 3:24 AM EDT Images from [...] DM, osteoarthritis, and anxiety/depression who presents to [facility] on 12/15/2024 with worsening dyspnea and hypoxia [...] from 11/29/2024 to 12/10/2024 after presenting from [facility] to the ED with concern for seizure, [...] been held since her recent SAD/SDH on 11/15. Per chart review, the initial plan was to hold for 2 weeks however given residual hemorrhage on MRI noted on her last admission neurosurgery reportedly recommended [...] Value Units Date/Time Blood Culture (Aerobic/Anaerobet Set) [[id number]] Collected: 12/15/242317 Order Status: Completed Specimen: Blood, Venous Updated: 12/16/24 0301 Culture Culture in lab Nasopharyngeal Respiratory Panel [[id number]] (Normal) Collected: 12/15/242318 Order Status: Completed Specimen: [...] Respiratory PCR Panel is performed using the Procura instrument. This test is FDA approved for use with Nasopharyngeal swabs only. This test is used for clinical purposes. It should not be regarded as investigational or for research. The [facility] is certified under the Clinical Laboratory Improvement Amendments of 1988 (CLIA-88) as qualified to perform high complexity clinical laboratory testing. SARS CoV-2/COVID-19 by PCR - Rapid [[id number]] (Normal) Collected: 12/15/24 2319 Order Status: Completed Specimen: Swab from Nasopharynx [...] testing. This test was performed on the [employer] XpSolarReserve SARS CoV-2 Plus assay test, a PCR- based method. Negative results should be considered presumptive and do not preclude current or future infection obtained through community transmission or other exposures. Negative results must be considered in the context of an individual's recent exposures, history, presence of clinical signs and symptoms consistent with COVID-19. SARS-CoV-2, Flu A, Flu B, and RSV - Rapid [[id number]] Order Status: Canceled Specimen: Swab from Nasopharynx [...] 2 DM, osteoarthritis, and anxiety/depressionwho presents to [facility] on 12/15/2024 with worsening dyspnea and hypoxia [...] mg, Oral, Every 6 hours scheduled, Under [employer] law, monthly prescriptions (30 days) can be refilled at 25 days and three-month prescriptions (90 days) at 80 days. Please contact the insurance company with questions if refills are denied. atorvastatin (LIPITOR) 40 mg, Every evening Dbmlgwh-Rfmwnmlkydq-Xacnrhmras (Breztri Aerosphere) 160-9-4.8 MCG/ACT aerosol 2 puffs, [...] 399=12units max of 36units daily nystatin (Mycostatin) 632849 UNIT/GM powder Apply on bottom 2 times [...] Time Provider Department Center 12/20/2024 10:30 AM [facility] JOSE MARTIN Vasquez 12/20/2024 11:00 AM Satnam Colvin MD [facility] 12/20/2024 12:30 PM [facility] INFUSION TREATMENT [facility] 12/21/2024 2:30 PM [facility] 1 INFUSION TREATMENT [id number] [facility] 12/22/2024 2:30 PM [facility] 2 INFUSION TREATMENT [id number] [facility] 01/19/2025 9:20 AM GS MR 2 MRIGSH [facility] 01/19/2025 10:45 AM Abhilash Bangura MD [facility] 03/08/2025 1:00 PM Teresita Oconnell MD [facility] Gordy Purvis APRN, [facility] [1] Past Medical History: Diagnosis Date A-fib (CMS/HCC) Anxiety Brain tumor (CMS/HCC) Chemotherapy-induced nausea and vomiting 08/28/2023 COPD (chronic obstructive pulmonary disease) (CMS/HCC) Depression Heart failure Hyperlipidemia Hypertension Osteoarthritis Pneumonia Small cell lung cancer (CMS/HCC) Type 2 diabetes mellitus [2] Past Surgical History: Procedure Laterality Date BRAIN SURGERY TUBAL LIGATION N/A Tubal Ligation from mySkin TYMPANOSTOMY TUBE PLACEMENT N/A Ear Surgery Eustachian Tube from mySkin [3] Family History Problem Relation Name Age [...] is higher than benefit - NPO Domingo Bowles MD Resident Physician, PGY-2 Department of Neurosurgery [facility] [1] No current facility-administered medications for this [...] Take 1 tablet by mouth every evening. Gpgeags-Jirxvtatbta-Idckpcgrqc (Breztri Aerosphere) 160-9-4.8 MCG/ACT aerosol Inhale 2 [...] 399=12units max of 36units daily nystatin (Mycostatin) 807163 UNIT/GM powder Apply on bottom 2 times [...] and oriented to person, place, and time. Tk Coma Scale Score: 15 ED Course [...] Linked Group Acknowledged GORDY PURVIS 12/16/24 0450 Neuro checks Every 4 hours Acknowledged GORDY PURVIS 12/16/24 0303 Assess Sx of bleed Every 6 hours Comments: Notify physician for signs of increased bruising, bleeding gums, blood in urine or stool,bleeding at arterial stick sites and bleeding at surgical sites. Acknowledged JIMMY JONES 12/16/24 0450 Daily weights Daily Acknowledged GORDY PURVIS 12/16/24 0450 Telemetry Monitoring for Other Arrhythmias [...] 12/16/24 0450 Admit to inpatient Once Acknowledged MADUJIBEYA, GORDY N 12/16/24 0436 Sedimentation Rate, Automated STAT Collected DOMINGO WALDROP 12/16/24 0436 C-reactive protein STAT Collected DOMINGO WALDROP 12/16/24 043 Blood Culture (Aerobic/Anaerobet Set) Once Collected DOMINGO WALDROP 12/16/24 042 Magnesium, Plasma STAT Collected DOMINGO WALDROP 12/16/24 042 Basic Metabolic Panel, Plasma STAT Collected DOMINGO WALDROP 12/16/24 0426 CBC W/O Differential STAT Collected DOMINGO WALDROP 12/16/24 042 Prothrombin Time/INR STAT Acknowledged DOMINGO WALDROP 12/16/24 042 APTT STAT Acknowledged DOMINGO WALDROP 12/16/24 042 Phosphorus, Plasma STAT Collected DOMINGO WALDROP 12/16/24 042 ECG Adult Once Preliminary result HYUN GORDY Imelda 12/16/24 042 MR Head w and wo IV Contrast Once Acknowledged DOMINGO WALDROP 12/16/24 042 NPO diet Diet effective midnight Acknowledged DOMINGO [...] Acknowledged BPA, INSTANT ORDERS 12/15/24 234 Initiate droplet isolation Continuous Comments: Added via [...] Pulmonary Embolism Once Final result JIMMY JONES 12/15/24 2137 Blood Culture (Aerobic/Anaerobet Set) STAT Preliminary result [...] JONES 12/15/242020 ECG Adult Once Preliminary result LALI, AILYN B 12/16/24 0303 Anti Xa Level by Unfractionated [...] IN THERAPEUTIC RANGE WITHIN 24 HOURS. Acknowledged JIMMY JONES Initial EKG was personally interpreted by me and demonstrated normal sinus rhythm with a rate of 95beats per minute, left axis, no NC prolongation, narrow QRS, no QTC prolongation. There is incomplete right bundle-branch block morphology. No ST elevation or depression. There are intermittent PACs. Initial EKG was personally interpreted by me and demonstrated normal sinus rhythm with a rate of 95beats per minute, left axis, no NC prolongation, narrow QRS, no QTC prolongation. There [...] None Disposition Admit Admitting/Attending Physician: DESI POP [[id number]] Provider Care Team: LEONA YU 6 [[id number]] [...] SURGERY TUBAL LIGATION N/A Tubal Ligation from mySkin TYMPANOSTOMY TUBE PLACEMENT N/A Ear Surgery Eustachian Tube from mySkin [3] Family History Problem Relation Name Age [facility] [address] [place] [address] 02/21/2025 9:20 AM EDT Office Visit [facility] [address] [facility] [place] [address] Satnam Colvin MD [address] [facility] [address] [place] [phone] 02/21/2025 11:00 AM EDT Appointment [facility] [address] [place] [phone] 02/22/2025 2:30 PM EDT Appointment [facility] [address] [place] [phone] 02/23/2025 3:30 PM EDT Appointment [facility] [address] [place] [phone] 03/08/2025 1:00 PM EDT Office Visit [facility] [place] [address] [facility] [place] [phone] Teresita Oconnell MD [address] [place] [phone] 03/10/2025 2:20 PM EDT Appointment [facility] [address] [place] [phone] 03/10/2025 3:45 PM EDT Appointment [facility] Radiology [address], [address] [place] [address] 03/14/2025 11:00 AM EDT Office Visit [facility] [address] [facility], [address] [place] [address] Satnam Colvin MD [address] [facility] Nuria Degroot [facility] [address] [place] [phone] documented as of this encounter Procedures Procedure [...] 12/16/2024 1:5 8 PM EDT Incisional infection NC DEBRIDEMENT, SKIN, SUB-Q TISSUE,MUSCLE,=<20 SQ CM 12/16/2024 [...] EDT BLOOD GAS PANEL, VENOUS STAT 12/16/19 11:18 PM EDT COMPREHENSIVE METABOLIC PANEL, PLASMA STAT 12/15/2024 11:18 PM EDT XR CHEST 1 VIEW STAT 12/15/2024 10:01 PM EDT ECG ADULT STAT 12/15/2024 8:23 PM EDT documented in this encounter Results * (ABNORMAL) POCT glucose meter (12/22/2024 12:43 PM EDT) [facility] POCT Glucose 189(H) 74 - 99 [...] 12/22/2024 12:45 PM EDT [facility] Campground Caretaker ID Marciano Mai 12/22/2024 12:45 PM EDT [facility] Device ID [id number] 12/22/2024 12:45 PM EDT [facility] Specimen Type POC Capillary 12/22/2024 12:45 PM EDT [facility] Blood Capillary blood specimen / Unknown 12/22/2024 12:43 PM EDT 12/22/2024 12:45 PM EDT us Yosi Richmond MD LAB POINT OF CARE T EST DOCKED DEVICE UNSOLICITED RESULTS Final Result [facility] [address] [place] [address] * (ABNORMAL) POCT glucose meter (12/22/2024 8:11 AM EDT) Pathologist [facility] POCT Glucose 117(H) 74 - 99 mg/dL 12/22/2024 8:13 AM EDT [facility] Comment:Accuracy of a [...] for testing. Comment 12/22/2024 8:13 AM EDT [facility] Campground Caretaker ID Marciano Mai 12/22/2024 8:13 AM EDT HEALTHCARE LAB Device ID [id number] 12/22/2024 8:13 AM EDT [facility] Specimen Type POC Capillary 12/22/2024 8:13 AM EDT [facility] Blood Capillary blood specimen / Unknown 12/22/2024 8:11 AM EDT 12/22/2024 8:13 AM EDT us Yosi Richmond MD LAB POINT OF CARE T EST DOCKED DEVICE UNSOLICITED RESULTS Final Result Performing Organization Address [facility] Co de Phone Number [facility] [address] [place] [address] * (ABNORMAL) Magnesium (12/22/2024 12:26 AM EDT) [facility] Magnesium, Plasma 1.1(L) 1.9 - 2.4 mg/dL 12/22/2024 1:04 AM EDT [facility] Blood Venous blood specimen / Unknown Venipuncture / Unknown 12/22/2024 12:26 AM EDT 12/22/2024 12:35 AM EDT us Yosi Richmond MD LAB BLOOD ORDERABLES Final Result Performing Organization Address [facility]/ZIP Co de Phone Number [facility] [address] [place] [address] * (ABNORMAL) CBC W/O Differential (12/22/2024 12:26 AM EDT) WBC Count 5.98 3.70 - 10.30 10*3/uL LAB HEMATOLOGY METHOD 12/22/2024 12:43 AM EDT [facility] RBC Count 2.50(L) 3.90 - 5.20 10*6/uL LAB HEMATOLOGY METHOD 12/22/2024 12:43 AM EDT [facility] HGB 7.3(L) 11.2 - 15.7 g/dL LAB HEMATOLOGY METHOD 12/22/2024 12:43 AM EDT [facility] HCT 23.7(L) 34.0 - 45.0 % LAB HEMATOLOGY METHOD 12/22/2024 12:43 AM EDT [facility] Platelet Count 152(L) 155 - 369 10*3/uL LAB HEMATOLOGY METHOD 12/22/2024 12:43 AM EDT [facility] MCV 95 79 - 98 fL LAB HEMATOLOGY METHOD 12/22/2024 12:43 AM EDT [facility] MCH 29.2 26.0 - 32.0 pg LAB HEMATOLOGY METHOD 12/22/2024 12:43 AM EDT [facility] MCHC 30.8 30.7 - 35.5 g/dL LAB HEMATOLOGY METHOD 12/22/2024 12:43 AM EDT [facility] RDW 19.8(H) 11.5 - 14.5 % LAB HEMATOLOGY METHOD 12/22/2024 12:43 AM EDT [facility] MPV 9.7 8.8 - 12.5 fL LAB HEMATOLOGY METHOD 12/22/2024 12:43 AM EDT [facility] nRBC 0.0 <=0.0 per 100 WBCs LAB HEMATOLOGY METHOD 12/22/2024 12:43 AM EDT [facility] Blood Venous blood specimen / Unknown Venipuncture / Unknown 12/22/2024 12:26 AM EDT 12/22/2024 12:36 AM EDT us Yosi Richmond MD LAB BLOOD ORDERABLES Final Result [facility] [address] [place] [address] * (ABNORMAL) Basic metabolic panel (12/22/2024 12:26 AM EDT) Glucose, Plasma 160(H) 74 - 99 mg/dL 12/22/2024 1:04 AM EDT [facility] BUN, Plasma 7(L) 8 - 23 mg/dL 12/22/2024 1:04 AM EDT [facility] Creatinine, Plasma 0.96 0.60 - 1.10 mg/dL 12/22/2024 1:04 AM EDT [facility] BUN/Creatinine Ratio 7 12/22/2024 1:04 AM EDT [facility] Sodium, Plasma 144 136 - 145 mmol/L 12/22/2024 1:04 AM EDT [facility] Potassium, Plasma 3.0(L) 3.6 - 4.9 mmol/L 12/22/2024 1:04 AM EDT [facility] Chloride, Plasma 110(H) 97 - 107 mmol/L 12/22/2024 1:04 AM EDT [facility] CO2, Plasma 24 22 - 29 mmol/L 12/22/2024 1:04 AM EDT [facility] Anion Gap 10 6 - 16 mmol/L 12/22/2024 1:04 AM EDT [facility] Total Calcium, Plasma 8.3(L) 8.9 - 10.2 mg/dL 12/22/2024 1:04 AM EDT [facility] eGFRcr 66.2 mL/min/1.7 3m*2 12/22/2024 1:04 AM EDT [facility] Comment:Reported eGFRcr in m L/min/1.73m2 is based the CKD-EPI 2020 equation that does not use a race coefficient. Blood Venous blood specimen / Unknown Venipuncture / Unknown 12/22/2024 12:26 AM EDT 12/22/2024 12:35 AM EDT us Yosi Richmond MD LAB BLOOD ORDERABLES Final Result [facility] [address] [place] [address] * (ABNORMAL) POCT glucose meter (12/21/2024 9:17 PM EDT) [facility] POCT Glucose 180(H) 74 - 99 mg/dL 12/21/2024 9:18 PM EDT [facility] Comment:Accuracy of [...] Comment 12/21/2024 9:18 PM EDT [facility] Campground Caretaker ID Anh Rankin 12/21/2024 9:18 PM EDT [facility] Device ID [id number] 12/21/2024 9:18 PM EDT [facility] Specimen Type POC Capillary 12/21/2024 9:18 PM EDT [facility] Blood Capillary blood specimen / Unknown 12/21/2024 9:17 PM EDT 12/21/2024 9:18 PM EDT us Yosi Richmond MD LAB POINT OF CARE T EST DOCKED DEVICE UNSOLICITED RESULTS Final Result [facility] [address] [place] [address] * (ABNORMAL) POCT glucose meter (12/21/2024 5:44 PM EDT) [facility] POCT Glucose 142(H) 74 - 99 [...] for testing. Comment 12/21/2024 5:46 PM EDT [facility] Campground Caretaker ID Marciano Mai 12/21/2024 5:46 PM EDT [facility] Device ID [id number] 12/21/2024 5:46 PM EDT [facility] Specimen Type POC Capillary 12/21/2024 5:46 PM EDT [facility] Blood Capillary blood specimen / Unknown 12/21/2024 5:44 PM EDT 12/21/2024 5:46 PM EDT Yosi Richmond MD LAB POINT OF CARE T EST DOCKED DEVICE UNSOLICITED RESULTS Final Result Performing Organization Address [facility]/ZIP Co de Phone Number [facility] [address] [place] [address] * (ABNORMAL) POCT glucose meter (12/21/2024 12:11 [...] Comment 12/21/2024 12:14 PM EDT [facility] Campground Caretaker ID Emily Vera 025 12:14 PM EDT [facility] Device ID [id number] 12/21/2024 12:14 PM EDT [facility] Specimen Type POC Capillary 12/21/2024 12:14 PM EDT [facility] Blood Capillary blood specimen / Unknown 12/21/2024 12:11 PM EDT 12/21/2024 12:14 PM EDT us Yosi Richmond MD LAB POINT OF CARE T EST DOCKED DEVICE UNSOLICITED RESULTS Final Result Performing Organization Address City/[facility]/ZIP Co de Phone Number [facility] [address] [place] [address] * (ABNORMAL) POCT glucose meter (12/21/2024 8:04 AM EDT) POCT Glucose 138(H) 74 - 99 mg/dL 12/21/2024 8:05 AM EDT [facility] Comment:Accuracy of [...] Comment 12/21/2024 8:05 AM EDT [facility]ARE [facility] Campground Caretaker ID Marciano Mai 12/21/2024 8:05 AM EDT HEALTHCARE LAB Device ID [id number] 12/21/2024 8:05 AM EDT [facility]ALTH[facility]ARE LAB Specimen Type POC Capillary 12/21/2024 8:05 AM EDT [facility] Blood Capillary blood specimen / Unknown 12/21/2024 8:04 AM EDT 12/21/2024 8:05 AM EDT us Yosi Richmond MD LAB POINT OF CARE T EST DOCKED DEVICE UNSOLICITED RESULTS Final Result Performing Organization Address [facility] Co de Phone Number [facility] [address] [place] [address] * Anti Xa Level by Unfractionated Heparin - Heparin Drip Titration (12/21/2024 7:30 AM EDT) Anti Xa Level Unfractionated Heparin 0.56 <1.00 IU/mL LAB COAGULATION METHOD 12/21/2024 8:08 AM EDT [facility] Blood Venous blood specimen / Unknown Venipuncture / Unknown 12/21/2024 7:30 AM EDT 12/21/2024 7:38 AM EDT Narrative [facility] - 12/21/2024 8:08 AM EDT Therapeutic Range: UFH Full Dose and ACS/SD protocols*: 0.30 - 0.70 IU/mL UFH Low Dose protocol*: 0.25 - 0.50 IU/mL UFH prophylaxis: Not established us Ailyn Cabrera MD LAB BLOOD ORDERABLES Final Re sult Performing Organization Address City/[facility]/ZIP Co de Phone Number [facility] [address] [place] [address] * (ABNORMAL) CBC W/O Differential - HIT surveillance (12/21/2024 1:04 AM EDT) WBC Count 5.76 3.70 - 10.30 10*3/uL LAB HEMATOLOGY METHOD 12/21/2024 1:20 AM EDT [facility] RBC Count 2.41(L) 3.90 - 5.20 10*6/uL LAB HEMATOLOGY METHOD 12/21/2024 1:20 AM EDT [facility] HGB 7.3(L) 11.2 - 15.7 g/dL LAB HEMATOLOGY METHOD 12/21/2024 1:20 AM EDT [facility] HCT 23.2(L) 34.0 - 45.0 % LAB HEMATOLOGY METHOD 12/21/2024 1:20 AM EDT [facility] Platelet Count 149(L) 155 - 369 10*3/uL LAB HEMATOLOGY METHOD 12/21/2024 1:20 AM EDT [facility] MCV 96 79 - 98 fL LAB HEMATOLOGY METHOD 12/21/2024 1:20 AM EDT [facility] MCH 30.3 26.0 - 32.0 pg LAB HEMATOLOGY METHOD 12/21/2024 1:20 AM EDT [facility] MCHC 31.5 30.7 - 35.5 g/dL LAB HEMATOLOGY METHOD 12/21/2024 1:20 AM EDT [facility] RDW 19.4(H) 11.5 - 14.5 % LAB HEMATOLOGY METHOD 12/21/2024 1:20 AM EDT [facility] MPV 9.4 8.8 - 12.5 fL LAB HEMATOLOGY METHOD 12/21/2024 1:20 AM EDT [facility] nRBC 0.0 <=0.0 per 100 WBCs LAB HEMATOLOGY METHOD 12/21/2024 1:20 AM EDT [facility] Blood Venous blood specimen / Unknown Venipuncture / Unknown 12/21/2024 1:04 AM EDT 12/21/2024 1:13 AM EDT us Ailyn Cabrera MD LAB BLOOD ORDERABLES Final Re sult [facility] [address] [place] [address] * Anti Xa Level by Unfractionated Heparin - Heparin Drip Titration (12/21/2024 1:04 AM EDT) Pathologist [facility] [place] Anti Xa Level Unfractionated Heparin 0.23 <1.00 IU/mL LAB COAGULATION METHOD 12/21/2024 1:34 AM EDT [facility] Blood Venous blood specimen / Unknown Venipuncture / Unknown 12/21/2024 1:04 AM EDT 12/21/2024 1:13 AM EDT Narrative [facility] - 12/21/2024 1:34 AM EDT Therapeutic Range: UFH Full Dose and ACS/SD protocols*: 0.30 - 0.70 IU/mL UFH Low Dose protocol*: 0.25 - 0.50 IU/mL UFH prophylaxis: Not established Ailyn Cabrera MD LAB BLOOD ORDERABLES Final Re sult [facility] [address] [place] [address] * (ABNORMAL) POCT glucose meter (12/20/2024 7:55 PM EDT) Pathologist [facility] [place] POCT Glucose 195(H) 74 - 99 mg/dL 12/20/2024 7:57 PM EDT [facility] Comment:Accuracy [...] for testing. Comment 12/20/2024 7:57 PM EDT [facility] Campground Caretaker ID Hany Deutsch 12/20/2024 7:57 PM EDT [facility]ARE LAB Device ID [id number] 12/20/2024 7:57 PM EDT [facility] Specimen Type POC Capillary 12/20/2024 7:57 PM EDT [facility] Blood Capillary blood specimen / Unknown 12/20/2024 7:55 PM EDT 12/20/2024 7:57 PM EDT Yosi Richmond MD LAB POINT OF CARE T EST DOCKED DEVICE UNSOLICITED RESULTS Final Result Performing Organization Address City/[facility] Co de Phone Number [facility]ARE [facility] [address] [place] [address] * (ABNORMAL) POCT glucose meter (12/20/2024 5:12 PM EDT) POCT Glucose 234(H) 74 - 99 mg/dL 12/20/2024 5:14 PM EDT [facility] Comment:Accuracy of a [...] for testing. Comment 12/20/2024 5:14 PM EDT [facility] Campground Caretaker ID Daphnie Perez 12/21/19 5:14 PM EDT HEALTHCARE LAB Device ID [id number] 12/20/2024 5:14 PM EDT [facility] Specimen Type POC Capillary 12/20/2024 5:14 PM EDT [facility] Blood Capillary blood specimen / Unknown 12/20/2024 5:12 PM EDT 12/20/2024 5:14 PM EDT Yosi Richmond MD LAB POINT OF CARE T EST DOCKED DEVICE UNSOLICITED RESULTS Final Result Performing Organization Address City/[facility]/ZIP Co de Phone Number [facility] [address] [place] [address] * (ABNORMAL) POCT glucose meter (12/20/2024 12:47 PM EDT) POCT Glucose 144(H) 74 - 99 mg/dL 12/20/2024 12:48 PM EDT [facility] Comment:Accuracy of [...] Comment 12/20/2024 12:48 PM EDT [facility] Campground Caretaker ID Marciano Mai 12/20/2024 12:48 PM EDT [facility]ARE LAB Device ID [id number] 12/20/2024 12:48 PM EDT [facility] Specimen Type POC Capillary 12/20/2024 12:48 PM EDT [facility] Blood Capillary blood specimen / Unknown 12/20/2024 12:47 PM EDT 12/20/2024 12:48 PM EDT us Yosi Richmond MD LAB POINT OF CARE T EST DOCKED DEVICE UNSOLICITED RESULTS Final Result Performing Organization Address City/[facility] Co de Phone Number [facility] [address] [place] [address] * (ABNORMAL) POCT glucose meter (12/20/2024 7:46 AM EDT) [facility] POCT Glucose 130(H) 74 - 99 mg/dL 12/20/2024 7:47 AM EDT [facility] Comment:Accuracy of [...] Comment 12/20/2024 7:47 AM EDT [facility] Campground Caretaker ID Marciano Mai 12/20/2024 7:47 AM EDT HEALTHCARE LAB Device ID [id number] 12/20/2024 7:47 AM EDT [facility] Specimen Type POC Capillary 12/20/2024 7:47 AM EDT [facility] Blood Capillary blood specimen / Unknown 12/20/2024 7:46 AM EDT 12/20/2024 7:47 AM EDT us Yosi Richmond MD LAB POINT OF CARE T EST DOCKED DEVICE UNSOLICITED RESULTS Final Result Performing Organization Address City/[facility] Co de Phone Number [facility] [address] [place] [address] * Anti Xa Level by Unfractionated Heparin - Heparin Drip Titration (12/20/2024 2:20 AM EDT) Anti Xa Level Unfractionated Heparin 0.29 <1.00 IU/mL LAB COAGULATION METHOD 12/20/2024 2:52 AM EDT [facility] Blood Venous blood specimen / Unknown Venipuncture / Unknown 12/20/2024 2:20 AM EDT 12/20/2024 2:31 AM EDT Narrative [facility] - 12/20/2024 2:52 AM EDT Therapeutic Range: UFH Full Dose and ACS/SD protocols*: 0.30 - 0.70 IU/mL UFH Low Dose protocol*: 0.25 - 0.50 IU/mL UFH prophylaxis: Not established us Ailyn Cabrera MD LAB BLOOD ORDERABLES Final Re sult [facility] [address] [place] [address] * (ABNORMAL) CBC W/O Differential - HIT surveillance (12/20/2024 2:20 AM EDT) WBC Count 5.86 3.70 - 10.30 10*3/uL LAB HEMATOLOGY METHOD 12/20/2024 2:49 AM EDT [facility] RBC Count 2.42(L) 3.90 - 5.20 10*6/uL LAB HEMATOLOGY METHOD 12/20/2024 2:49 AM EDT [facility] HGB 7.3(L) 11.2 - 15.7 g/dL LAB HEMATOLOGY METHOD 12/20/2024 2:49 AM EDT [facility] HCT 23.4(L) 34.0 - 45.0 % LAB HEMATOLOGY METHOD 12/20/2024 2:49 AM EDT [facility] Platelet Count 166 155 - 369 10*3/uL LAB HEMATOLOGY METHOD 12/20/2024 2:49 AM EDT [facility] MCV 97 79 - 98 fL LAB HEMATOLOGY METHOD 12/20/2024 2:49 AM EDT [facility] MCH 30.2 26.0 - 32.0 pg LAB HEMATOLOGY METHOD 12/20/2024 2:49 AM EDT [facility] MCHC 31.2 30.7 - 35.5 g/dL LAB HEMATOLOGY METHOD 12/20/2024 2:49 AM EDT [facility] RDW 19.6(H) 11.5 - 14.5 % LAB HEMATOLOGY METHOD 12/20/2024 2:49 AM EDT [facility] MPV 9.9 8.8 - 12.5 fL LAB HEMATOLOGY METHOD 12/20/2024 2:49 AM EDT [facility] nRBC 0.0 <=0.0 per 100 WBCs LAB HEMATOLOGY METHOD 12/20/2024 2:49 AM EDT [facility] Blood Venous blood specimen / Unknown Venipuncture / Unknown 12/20/2024 2:20 AM EDT 12/20/2024 2:31 AM EDT us Ailyn Cabrera MD LAB BLOOD ORDERABLES Final Re sult [facility] [address] [place] [address] * Phosphorus, Plasma (12/20/2024 2:20 AM EDT) Phosphorus, Plasma 3.3 2.5 - 4.5 mg/dL 12/20/2024 3:00 AM EDT [facility] Blood Venous blood specimen / Unknown Venipuncture / Unknown 12/20/2024 2:20 AM EDT 12/20/2024 2:31 AM EDT us Lisa Lloyd DO LAB BLOOD ORDERABLES Final Resu lt [facility] [address] [place] [address] * (ABNORMAL) Magnesium, Plasma (12/20/2024 2:20 AM EDT) Magnesium, Plasma 1.6(L) 1.9 - 2.4 mg/dL 12/20/2024 3:00 AM EDT [facility] Blood Venous blood specimen / Unknown Venipuncture / Unknown 12/20/2024 2:20 AM EDT 12/20/2024 2:31 AM EDT us Lisa Lloyd DO LAB BLOOD ORDERABLES Final Resu lt [facility] [address] [place] [address] * (ABNORMAL) Comprehensive Metabolic Panel, Plasma (12/20/2024 2:20 AM EDT) Glucose, Plasma 120(H) 74 - 99 mg/dL 12/20/2024 3:00 AM EDT [facility] BUN, Plasma 7(L) 8 - 23 mg/dL 12/20/2024 3:00 AM EDT [facility] Creatinine, Plasma 0.90 0.60 - 1.10 mg/dL 12/20/2024 3:00 AM EDT [facility] BUN/Creatinine Ratio 8 12/20/2024 3:00 AM EDT [facility] Sodium, Plasma 145 136 - 145 mmol/L 12/20/2024 3:00 AM EDT [facility] Potassium, Plasma 3.4(L) 3.6 - 4.9 mmol/L 12/20/2024 3:00 AM EDT [facility] Chloride, Plasma 112(H) 97 - 107 mmol/L 12/20/2024 3:00 AM EDT [facility] CO2, Plasma 23 22 - 29 mmol/L 12/20/2024 3:00 AM EDT [facility] Anion Gap 10 6 - 16 mmol/L 12/20/2024 3:00 AM EDT [facility] Total Calcium, Plasma 8.5(L) 8.9 - 10.2 mg/dL 12/20/2024 3:00 AM EDT [facility] Total Protein 6.0(L) 6.3 - 7.9 g/dL 12/20/2024 3:00 AM EDT [facility] Albumin, Plasma 2.7(L) 3.5 - 5.2 g/dL 12/20/2024 3:00 AM EDT [facility] AST, Plasma 17 10 - 35 U/L 12/20/2024 3:00 AM EDT [facility] ALT, Plasma 6(L) 10 - 35 U/L 12/20/2024 3:00 AM EDT [facility] Alkaline Phosphatase, Plasma 67 46 - 142 U/L 12/20/2024 3:00 AM EDT [facility] Total Bilirubin, Plasma 0.3 0.2 - 1.1 mg/dL 12/20/2024 3:00 AM EDT [facility] eGFRcr 71.5 mL/min/1.7 3m*2 12/20/2024 3:00 AM EDT [facility] Comment:Reported eGFRcr in m L/min/1.73m2 is based the CKD-EPI 2020 equation that does not use a race coefficient. Blood Venous blood specimen / Unknown Venipuncture / Unknown 12/20/2024 2:20 AM EDT 12/20/2024 2:31 AM EDT us Lisa Lloyd DO LAB BLOOD ORDERABLES Final Resu lt [facility] [address] [place] [address] * Anti Xa Level by Unfractionated Heparin - Heparin Drip Titration (12/19/2024 10:29 PM EDT) Anti Xa Level Unfractionated Heparin 0.39 <1.00 IU/mL LAB COAGULATION METHOD 12/19/2024 11:32 PM EDT [facility] Blood Venous blood specimen / Unknown Venipuncture / Unknown 12/19/2024 10:29 PM EDT 12/19/2024 10:54 PM EDT Narrative [facility] - 12/19/2024 11:32 PM EDT Therapeutic Range: UFH Full Dose and ACS/SD protocols*: 0.30 - 0.70 IU/mL UFH Low Dose protocol*: 0.25 - 0.50 IU/mL UFH prophylaxis: Not established us Ailyn Cabrera MD LAB BLOOD ORDERABLES Final Re sult [facility] [address] [place] [address] * (ABNORMAL) POCT glucose meter (12/19/2024 8:18 PM EDT) [facility] POCT Glucose 180(H) 74 - 99 mg/dL [...] for testing. Comment 12/19/2024 8:20 PM EDT [facility]ALTHCARE LAB Campground Caretaker ID Sujatha Medrano 12/19/2024 8:20 PM EDT [facility] Device ID [id number] 12/19/2024 8:20 PM EDT [facility] Specimen Type POC Capillary 12/19/2024 8:20 PM EDT [facility]ALTH[facility]ARE LAB Blood Capillary blood specimen / Unknown 12/19/2024 8:18 PM EDT 12/19/2024 8:20 PM EDT Lisa Lloyd DO LAB POINT OF CARE TE ST DOCKED DEVICE UNSOLICITED RESULTS Final Result [facility] [address] [place] [address] * (ABNORMAL) POCT glucose meter (12/19/2024 5:09 PM EDT) [facility] POCT Glucose 118(H) 74 - 99 mg/dL [...] 12/19/2024 5:10 PM EDT [facility] Campground Caretaker ID Marciano Mai 12/19/2024 5:10 PM EDT [facility] Device ID [id number] 12/19/2024 5:10 PM EDT HEALTHCARE LAB Specimen Type POC Capillary 12/19/2024 5:10 PM EDT [facility] Blood Capillary blood specimen / Unknown 12/19/2024 5:09 PM EDT 12/19/2024 5:10 PM EDT Lisa Lloyd DO LAB POINT OF CARE TE ST DOCKED DEVICE UNSOLICITED RESULTS Final Result Performing Organization Address City/[facility] Co de Phone Number [facility] [address] [place] [address] * Anti Xa Level by Unfractionated Heparin - Heparin Drip Titration (12/19/2024 3:33 PM EDT) Pathologist [facility] Anti Xa Level Unfractionated Heparin <0.11 <1.00 IU/mL LAB COAGULATION METHOD 12/19/2024 4:24 PM EDT [facility] Blood Venous blood specimen / Unknown Venipuncture / Unknown 12/19/2024 3:33 PM EDT 12/19/2024 4:05 PM EDT Narrative [facility] - 12/19/2024 4:24 PM EDT Therapeutic Range: UFH Full Dose and ACS/SD protocols*: 0.30 - 0.70 IU/mL UFH Low Dose protocol*: 0.25 - 0.50 IU/mL UFH prophylaxis: Not established Ailyn Cabrera MD LAB BLOOD ORDERABLES Final Re sult [facility] [address] [place] [address] * (ABNORMAL) POCT glucose meter (12/19/2024 11:58 AM EDT) POCT Glucose 129(H) 74 - 99 mg/dL 12/19/2024 11:59 AM EDT [facility] Comment:Accuracy of a [...] for testing. Comment 12/19/2024 11:59 AM EDT [facility] Campground Caretaker ID Marciano Mai 12/19/2024 11:59 AM EDT [facility] Device ID [id number] 12/19/2024 11:59 AM EDT [facility] Specimen Type POC Capillary 12/19/2024 11:59 AM EDT [facility] Blood Capillary blood specimen / Unknown 12/19/2024 11:58 AM EDT 12/19/2024 11:59 AM EDT Lisa C Gabino DO LAB POINT OF CARE TE ST DOCKED DEVICE UNSOLICITED RESULTS Final Result Performing Organization Address [facility] de Phone Number [facility]ARE [facility] [address] [place] [address] * (ABNORMAL) POCT glucose meter (12/19/2024 8:09 AM EDT) [facility] POCT Glucose 130(H) 74 - 99 mg/dL 12/19/2024 8:11 AM EDT [facility] Comment:Accuracy of [...] Comment 12/19/2024 8:11 AM EDT [facility]ALTH[facility]ARE LAB Campground Caretaker ID Marciano Mai 12/19/2024 8:11 AM EDT HEALTHCARE LAB Device ID [id number] 12/19/2024 8:11 AM EDT [facility]ALTH[facility]ARE LAB Specimen Type POC Capillary 12/19/2024 8:11 AM EDT [facility] Blood Capillary blood specimen / Unknown 12/19/2024 8:09 AM EDT 12/19/2024 8:11 AM EDT Lisa Lloyd DO LAB POINT OF CARE TE ST DOCKED DEVICE UNSOLICITED RESULTS Final Result Performing Organization Address City/[facility]/ZIP Co de Phone Number [facility] [address] [place] [address] * (ABNORMAL) Anti Xa Level by Unfractionated Heparin - Heparin Drip Titration (12/19/2024 6:19 AM EDT) Anti Xa Level Unfractionated Heparin >1.10(HH ) <1.00 IU/mL LAB COAGULATION METHOD 12/19/2024 6:48 AM EDT [facility] Blood Venous blood specimen / Unknown Venipuncture / Unknown 12/19/2024 6:19 AM EDT 12/19/2024 6:28 AM EDT Narrative [facility] - 12/19/2024 6:48 AM EDT Therapeutic Range: UFH Full Dose and ACS/SD protocols*: 0.30 - 0.70 IU/mL UFH Low Dose protocol*: 0.25 - 0.50 IU/mL UFH prophylaxis: Not established us Ailyn Cabrera MD LAB BLOOD ORDERABLES Final Re sult [facility] [address] [place] [address] * (ABNORMAL) Magnesium, Plasma (12/19/2024 6:19 AM EDT) Magnesium, Plasma 1.5(L) 1.9 - 2.4 mg/dL 12/19/2024 6:50 AM EDT [facility] Blood Venous blood specimen / Unknown Venipuncture / Unknown 12/19/2024 6:19 AM EDT 12/19/2024 6:28 AM EDT us Lisa Lloyd DO LAB BLOOD ORDERABLES Final Resu lt [facility] [address] [place] [address] * (ABNORMAL) CBC W/O Differential - HIT surveillance (12/19/2024 12:25 AM EDT) WBC Count 8.55 3.70 - 10.30 10*3/uL LAB HEMATOLOGY METHOD 12/19/2024 1:04 AM EDT [facility] RBC Count 2.73(L) 3.90 - 5.20 10*6/uL LAB HEMATOLOGY METHOD 12/19/2024 1:04 AM EDT [facility] HGB 8.0(L) 11.2 - 15.7 g/dL LAB HEMATOLOGY METHOD 12/19/2024 1:04 AM EDT [facility] HCT 25.9(L) 34.0 - 45.0 % LAB HEMATOLOGY METHOD 12/19/2024 1:04 AM EDT [facility] Platelet Count 204 155 - 369 10*3/uL LAB HEMATOLOGY METHOD 12/19/2024 1:04 AM EDT [facility] MCV 95 79 - 98 fL LAB HEMATOLOGY METHOD 12/19/2024 1:04 AM EDT [facility] MCH 29.3 26.0 - 32.0 pg LAB HEMATOLOGY METHOD 12/19/2024 1:04 AM EDT [facility] MCHC 30.9 30.7 - 35.5 g/dL LAB HEMATOLOGY METHOD 12/19/2024 1:04 AM EDT [facility] RDW 19.9(H) 11.5 - 14.5 % LAB HEMATOLOGY METHOD 12/19/2024 1:04 AM EDT [facility] MPV 9.7 8.8 - 12.5 fL LAB HEMATOLOGY METHOD 12/19/2024 1:04 AM EDT [facility] nRBC 0.0 <=0.0 per 100 WBCs LAB HEMATOLOGY METHOD 12/19/2024 1:04 AM EDT [facility] Blood Venous blood specimen / Unknown Venipuncture / Unknown 12/19/2024 12:25 AM EDT 12/19/2024 12:44 AM EDT us Ailyn Cabrera MD LAB BLOOD ORDERABLES Final Re sult [facility] [address] [place] [address] * (ABNORMAL) N-Terminal Probnp (12/19/2024 12:25 AM EDT) N-Terminal, PROBNP, Plasma 2,653(H) 0 - 899 pg/mL 12/19/2024 1:24 AM EDT [facility] Blood Venous blood specimen / Unknown Venipuncture / Unknown 12/19/2024 12:25 AM EDT 12/19/2024 12:45 AM EDT Lisa [employer] LAB BLOOD ORDERABLES Final Resu lt Performing Organization Address [facility]/[place] [address] * TSH Reflex FT4 (12/19/2024 12:25 AM EDT) Thyroid Stimulating Hormone, Plasma 3.21 0.40 - 4.20 uIU/mL 12/19/2024 1:24 AM EDT [facility] Blood Venous blood specimen / Unknown Venipuncture / Unknown 12/19/2024 12:25 AM EDT 12/19/2024 12:45 AM EDT Lisa Lloyd [employer] LAB BLOOD ORDERABLES Final Resu lt Performing Organization Address [facility] [place] [address] * Phosphorus, Plasma (12/19/2024 12:25 AM EDT) Phosphorus, Plasma 3.4 2.5 - 4.5 mg/dL 12/19/2024 1:24 AM EDT [facility] Blood Venous blood specimen / Unknown Venipuncture / Unknown 12/19/2024 12:25 AM EDT 12/19/2024 12:45 AM EDT Lisa Og Lloyd [employer] LAB BLOOD ORDERABLES Final Resu lt Performing Organization Address [facility] [place] [address] * (ABNORMAL) Magnesium, Plasma (12/19/2024 12:25 AM EDT) Magnesium, Plasma 1.7(L) 1.9 - 2.4 mg/dL 12/19/2024 1:24 AM EDT [facility] Blood Venous blood specimen / Unknown Venipuncture / Unknown 12/19/2024 12:25 AM EDT 12/19/2024 12:45 AM EDT us Lisa Lloyd DO LAB BLOOD ORDERABLES Final Resu lt [facility] [address] [place] [address] * (ABNORMAL) Comprehensive Metabolic Panel, Plasma (12/19/2024 12:25 AM EDT) Glucose, Plasma 152(H) 74 - 99 mg/dL 12/19/2024 1:24 AM EDT [facility] BUN, Plasma 7(L) 8 - 23 mg/dL 12/19/2024 1:24 AM EDT [facility] Creatinine, Plasma 0.96 0.60 - 1.10 mg/dL 12/19/2024 1:24 AM EDT [facility] BUN/Creatinine Ratio 7 12/19/2024 1:24 AM EDT [facility] Sodium, Plasma 143 136 - 145 mmol/L 12/19/2024 1:24 AM EDT [facility] Potassium, Plasma 3.4(L) 3.6 - 4.9 mmol/L 12/19/2024 1:24 AM EDT [facility] Chloride, Plasma 105 97 - 107 mmol/L 12/19/2024 1:24 AM EDT [facility] CO2, Plasma 25 22 - 29 mmol/L 12/19/2024 1:24 AM EDT [facility] Anion Gap 13 6 - 16 mmol/L 12/19/2024 1:24 AM EDT [facility] Total Calcium, Plasma 9.0 8.9 - 10.2 mg/dL 12/19/2024 1:24 AM EDT [facility] Total Protein 6.5 6.3 - 7.9 g/dL 12/19/2024 1:24 AM EDT [facility] Albumin, Plasma 3.2(L) 3.5 - 5.2 g/dL 12/19/2024 1:24 AM EDT [facility] AST, Plasma 16 10 - 35 U/L 12/19/2024 1:24 AM EDT [facility] ALT, Plasma 11 10 - 35 U/L 12/19/2024 1:24 AM EDT [facility] Alkaline Phosphatase, Plasma 76 46 - 142 U/L 12/19/2024 1:24 AM EDT [facility] Total Bilirubin, Plasma 0.4 0.2 - 1.1 mg/dL 12/19/2024 1:24 AM EDT [facility] eGFRcr 66.2 mL/min/1.7 3m*2 12/19/2024 1:24 AM EDT [facility] Comment:Reported eGFRcr in m L/min/1.73m2 is based the CKD-EPI 2020 equation that does not use a race coefficient. Blood Venous blood specimen / Unknown Venipuncture / Unknown 12/19/2024 12:25 AM EDT 12/19/2024 12:45 AM EDT us Lisa Lloyd DO LAB BLOOD ORDERABLES Final Resu lt [facility] [address] [place] [address] * PICC DOUBLE LUMEN (SMART[employer] LINK) (12/18/2024 11:40 PM EDT) Narrative Brian Dai RN - 12/18/2024 11:40 PM EDT Brian Dai RN 12/19/2024 1:05 AM Insert PICC line Performed by: Brian Dai RN Authorized by: Lisa Lloyd DO [place] Protocol: Verbal consent obtained?: Yes Written consent [...] Left Location (Adult): Basilic vein (Largest vein, [id number] ratio 18%.) Site selection rationale: Infiltration from PIV in RUE. Patient position: Supine Catheter Lot #: [id number] Catheter oil tester: [place] Power PICC Provena Catheter with Solo Valve Catheter placed: Double lumen Catheter size: 4 Fr Catheter trimmed length: 48 Catheter threaded length: 48 Vein placed in: SVC Catheter cm indwellin Catheter cm outside: 0 Placement confirmed by: Sherlock 3CG technology Pre-procedure: Landmarks identified Ultrasound guidance: [...] okay to use order will be placed. [place] limb precaution armband placed on left wrist for PICC precautions while PICC is in place (No sticks/BP's). Green alcohol caps placed on ends of each lumen hub/heplock. VAT consult completed. Lisa Lloyd DO IV THERAPY ORDERABLES Edited Re sult - Final * (ABNORMAL) POCT glucose meter (12/18/2024 7:27 PM EDT) POCT Glucose 120(H) 74 - 99 mg/dL 12/18/2024 7:29 PM EDT [facility] Comment:Accuracy of [...] for testing. Comment 12/18/2024 7:29 PM EDT [facility]ALTH[facility]ARE [facility] Campground Caretaker ID Samina Woods 12/18/2024 7:29 PM EDT [facility]ARE LAB Device ID [id number] 12/18/2024 7:29 PM EDT [facility] Specimen Type POC Capillary 12/18/2024 7:29 PM EDT [employer] [facility] Blood Capillary blood specimen / Unknown 12/18/2024 7:27 PM EDT 12/18/2024 7:29 PM EDT Lisa Lenka Lloyd DO LAB POINT OF CARE TE ST DOCKED DEVICE UNSOLICITED RESULTS Final Result Performing Organization Address City/State/[facility] Co de Phone Number HEALTHCARE LAB [address] [place] [address] * XR Chest 1 View (12/18/2024 6:26 [...] Woods MD on 12/18/2024 6:34 PM Lisa Lloyd DO IMG XR PROCEDURES Final Result * ECG Adult (12/18/2024 4:47 PM EDT) EKG DIAGNOSIS CLASS Abnormal MUSE ECG Ventricular Rate 139 BPM MUSE ECG QRSD Interval 86 ms MUSE ECG QT Interval 314 ms MUSE ECG QTC Interval 477 ms MUSE ECG R Media 7 degrees MUSE ECG T Wave Media 26 degrees MUSE ECG Diagnosis Atrial fibrillation with rapid ventricular response MUSE ECG Diagnosis Nonspecific ST and T wave abnormality MUSE ECG Diagnosis Borderline QT interval MUSE ECG Diagnosis Abnormal ECG MUSE ECG Diagnosis MUSE ECG Diagnosis Confirmed by Joey Perkins ([id number]) on 12/19/2024 2:57:40 PM MUSE ECG 12/18/2024 4:47 PM EDT 12/19/2024 2:57 PM EDT Lisa Lloyd DO ECG ORDERABLES Final Result MUSE ECG * (ABNORMAL) POCT glucose meter (12/18/2024 4:39 PM EDT) POCT Glucose 125(H) 74 - 99 mg/dL [...] for testing. Comment 12/18/2024 4:40 PM EDT [facility]ALTHCARE LAB Campground Caretaker ID Margy Worthy 12/18/2024 4:40 PM EDT HEALTHCARE LAB Device ID [id number] 12/18/2024 4:40 PM EDT [facility]ALTH[facility]ARE LAB Specimen Type POC Capillary 12/18/2024 4:40 PM EDT [facility] Blood Capillary blood specimen / Unknown 12/18/2024 4:39 PM EDT 12/18/2024 4:40 PM EDT Lisa Lloyd DO LAB POINT OF CARE TE ST DOCKED DEVICE UNSOLICITED RESULTS Final Result Performing Organization Address City/State/[facility] de Phone Number HEALTHCARE LAB [address] [place] [address] * Transfuse RBC (12/18/2024 3:42 PM EDT) [...] 99 mg/dL 12/18/2024 12:01 PM EDT [facility] Comment:Accuracy of [...] Comment 12/18/2024 12:01 PM EDT HEALTHCARE LAB Campground Caretaker ID ZaynabMargy 12/18/2024 12:01 PM EDT HEALTHCARE LAB Device ID [id number] 12/18/2024 12:01 PM EDT [facility]ALTH[facility]ARE LAB Specimen Type POC Capillary 12/18/2024 12:01 PM EDT [facility] Blood Capillary blood specimen / Unknown 12/18/2024 11:59 AM EDT 12/18/2024 12:01 PM EDT Lisa Lloyd DO LAB POINT OF CARE TE ST DOCKED DEVICE UNSOLICITED RESULTS Final Result Performing Organization Address City/State/[facility] Phone Number [facility] [address] [place], [place] [id number] * PERIPHERAL IV (SMARTFORM LINK) (12/18/2024 9:58 [...] pertinent images were uploaded to PACS. Lisa Lenka Lloyd DO IV THERAPY ORDERABLES Final Res ult * Prepare Leukocyte Reduced RBC: 1 Units (12/18/2024 9:09 AM EDT) [facility] Product Code R5570A22 BLOO D BANK Dispense Status Transfused BLOOD BANK Blood Expiration Date [id number] BLOOD BANK Unit Number [id number] B LOOD BANK Product Blood Type 5100 BLOOD BANK Blood Type O+ BLOOD BANK Crossmatch Compatible BLOOD BANK Other [facility] Lenka Lloyd BLOOD BANK PRODUCT ORDERABLES F inal Result BLOOD BANK [address] [place] [address], * (ABNORMAL) POCT glucose meter (12/18/2024 7:55 AM EDT) [facility] POCT Glucose 155(H) 74 - 99 mg/dL [...] for testing. Comment 12/18/2024 7:57 AM EDT [facility] Campground Caretaker ID Zaynab, Ashmae 12/18/2024 7:57 AM EDT HEALTHCARE LAB Device ID [id number] 12/18/2024 7:57 AM EDT [facility]ALTHCARE LAB Specimen Type POC Capillary 12/18/2024 7:57 AM EDT [facility]ALTHCARE LAB Blood Capillary blood specimen / Unknown 12/18/2024 7:55 AM EDT 12/18/2024 7:57 AM EDT Lisa Lloyd DO LAB POINT OF CARE TE ST DOCKED DEVICE UNSOLICITED RESULTS Final Result [facility] [address] [place] [address] * (ABNORMAL) CBC W/O Differential - HIT surveillance (12/18/2024 5:16 AM EDT) WBC Count 7.00 3.70 - 10.30 10*3/uL LAB HEMATOLOGY METHOD 12/18/2024 5:30 AM EDT [facility] RBC Count 2.28(L) 3.90 - 5.20 10*6/uL LAB HEMATOLOGY METHOD 12/18/2024 5:30 AM EDT [facility] HGB 6.9(L) 11.2 - 15.7 g/dL LAB HEMATOLOGY METHOD 12/18/2024 5:30 AM EDT [facility] HCT 22.4(L) 34.0 - 45.0 % LAB HEMATOLOGY METHOD 12/18/2024 5:30 AM EDT [facility] Platelet Count 201 155 - 369 10*3/uL LAB HEMATOLOGY METHOD 12/18/2024 5:30 AM EDT [facility] MCV 98 79 - 98 fL LAB HEMATOLOGY METHOD 12/18/2024 5:30 AM EDT [facility] MCH 30.3 26.0 - 32.0 pg LAB HEMATOLOGY METHOD 12/18/2024 5:30 AM EDT [facility] MCHC 30.8 30.7 - 35.5 g/dL LAB HEMATOLOGY METHOD 12/18/2024 5:30 AM EDT [facility] RDW 18.7(H) 11.5 - 14.5 % LAB HEMATOLOGY METHOD 12/18/2024 5:30 AM EDT [facility] MPV 10.0 8.8 - 12.5 fL LAB HEMATOLOGY METHOD 12/18/2024 5:30 AM EDT [facility] nRBC 0.0 <=0.0 per 100 WBCs LAB HEMATOLOGY METHOD 12/18/2024 5:30 AM EDT [facility] Blood Venous blood specimen / Unknown Venipuncture / Unknown 12/18/2024 5:16 AM EDT 12/18/2024 5:22 AM EDT us Ailyn Cabrera MD LAB BLOOD ORDERABLES Final Re sult Performing Organization Address [facility]/Va Hospital/ZIP Co de Phone Number [facility] [address] [place] [address] * Magnesium, Plasma (12/18/2024 5:16 AM EDT) Magnesium, Plasma 2.0 1.9 - 2.4 mg/dL 12/18/2024 5:52 AM EDT [facility] Blood Venous blood specimen / Unknown Venipuncture / Unknown 12/18/2024 5:16 AM EDT 12/18/2024 5:23 AM EDT Lisa Lloyd DO LAB BLOOD ORDERABLES Final Resu lt Performing Organization Address City/Va Hospital/ZIP Co de Phone Number [facility] [address] [place] [address] * (ABNORMAL) Comprehensive Metabolic Panel, Plasma (12/18/2024 5:16 AM EDT) Glucose, Plasma 130(H) 74 - 99 mg/dL 12/18/2024 5:52 AM EDT [facility] BUN, Plasma 8 8 - 23 mg/dL 12/18/2024 5:52 AM EDT [facility] Creatinine, Plasma 1.05 0.60 - 1.10 mg/dL 12/18/2024 5:52 AM EDT [facility] BUN/Creatinine Ratio 8 12/18/2024 5:52 AM EDT [facility] Sodium, Plasma 146(H) 136 - 145 mmol/L 12/18/2024 5:52 AM EDT [facility] Potassium, Plasma 3.8 3.6 - 4.9 mmol/L 12/18/2024 5:52 AM EDT [facility] Chloride, Plasma 109(H) 97 - 107 mmol/L 12/18/2024 5:52 AM EDT [facility] CO2, Plasma 26 22 - 29 mmol/L 12/18/2024 5:52 AM EDT [facility] Anion Gap 11 6 - 16 mmol/L 12/18/2024 5:52 AM EDT [facility] Total Calcium, Plasma 8.8(L) 8.9 - 10.2 mg/dL 12/18/2024 5:52 AM EDT [facility] Total Protein 6.4 6.3 - 7.9 g/dL 12/18/2024 5:52 AM EDT [facility] Albumin, Plasma 3.0(L) 3.5 - 5.2 g/dL 12/18/2024 5:52 AM EDT [facility] AST, Plasma 23 10 - 35 U/L 12/18/2024 5:52 AM EDT [facility] Comment:Hemolyzed, result ma y be falsely increased. ALT, Plasma 11 10 - 35 U/L 12/18/2024 5:52 AM EDT [facility] Alkaline Phosphatase, Plasma 75 46 - 142 U/L 12/18/2024 5:52 AM EDT [facility] Total Bilirubin, Plasma 0.3 0.2 - 1.1 mg/dL 12/18/2024 5:52 AM EDT [facility] eGFRcr 59.5 mL/min/1.7 3m*2 12/18/2024 5:52 AM EDT [facility] Comment:Reported eGFRcr in m L/min/1.73m2 is based the CKD-EPI 2020 equation that does not use a race coefficient. Blood Venous blood specimen / Unknown Venipuncture / Unknown 12/18/2024 5:16 AM EDT 12/18/2024 5:23 AM EDT us Lisa Lloyd DO LAB BLOOD ORDERABLES Final Resu lt [facility] [address] [place] [address] * (ABNORMAL) Hemoglobin and Hematocrit, Blood (12/17/2024 9:59 PM EDT) HGB 6.9(L) 11.2 - 15.7 g/dL LAB HEMATOLOGY METHOD 12/17/2024 9:59 PM EDT [facility] HCT 22.2(L) 34.0 - 45.0 % LAB HEMATOLOGY METHOD 12/17/2024 9:59 PM EDT [facility] Blood Venous blood specimen / Unknown 12/17/2024 9:51 PM EDT us Lisa Lloyd DO LAB BLOOD ORDERABLES Final Resu lt [facility] [address] [place] [address] * PERIPHERAL IV (SMARTFORM LINK) (12/17/2024 9:45 [...] IV site covered with: Transparent semipermeable dressing Gordy Purvis APRN, DNP IV THERAPY ORDERA BLES Final Result * (ABNORMAL) POCT glucose meter (12/17/2024 9:09 PM EDT) Pathologist [facility] POCT Glucose 114(H) 74 - 99 mg/dL 12/17/2024 9:11 PM EDT [facility] Comment:Accuracy of a [...] Comment 12/17/2024 9:11 PM EDT HEALTHCARE LAB Campground Caretaker ID Herman Gallardo 12/17/2024 9:11 PM EDT HEALTHCARE LAB Device ID [id number] 12/17/2024 9:11 PM EDT [facility]ALTH[facility]ARE LAB Specimen Type POC Capillary 12/17/2024 9:11 PM EDT [facility] Blood Capillary blood specimen / Unknown 12/17/2024 9:09 PM EDT 12/17/2024 9:11 PM EDT us Lisa Lloyd DO LAB POINT OF CARE TE ST DOCKED DEVICE UNSOLICITED RESULTS Final Result [facility] [address] [place] [id number] * (ABNORMAL) CBC W/O Differential - HIT surveillance (12/17/2024 3:22 PM EDT) WBC Count 8.32 3.70 - 10.30 10*3/uL LAB HEMATOLOGY METHOD 12/17/2024 3:49 PM EDT [facility] RBC Count 2.37(L) 3.90 - 5.20 10*6/uL LAB HEMATOLOGY METHOD 12/17/2024 3:49 PM EDT [facility] HGB 7.1(L) 11.2 - 15.7 g/dL LAB HEMATOLOGY METHOD 12/17/2024 3:49 PM EDT [facility] HCT 23.1(L) 34.0 - 45.0 % LAB HEMATOLOGY METHOD 12/17/2024 3:49 PM EDT [facility] Platelet Count 202 155 - 369 10*3/uL LAB HEMATOLOGY METHOD 12/17/2024 3:49 PM EDT [facility] MCV 98 79 - 98 fL LAB HEMATOLOGY METHOD 12/17/2024 3:49 PM EDT [facility] MCH 30.0 26.0 - 32.0 pg LAB HEMATOLOGY METHOD 12/17/2024 3:49 PM EDT [facility] MCHC 30.7 30.7 - 35.5 g/dL LAB HEMATOLOGY METHOD 12/17/2024 3:49 PM EDT [facility] RDW 18.6(H) 11.5 - 14.5 % LAB HEMATOLOGY METHOD 12/17/2024 3:49 PM EDT [facility] MPV 10.1 8.8 - 12.5 fL LAB HEMATOLOGY METHOD 12/17/2024 3:49 PM EDT [facility] nRBC 0.0 <=0.0 per 100 WBCs LAB HEMATOLOGY METHOD 12/17/2024 3:49 PM EDT [facility] Blood Venous blood specimen / Unknown Venipuncture / Unknown 12/17/2024 3:22 PM EDT 12/17/2024 3:40 PM EDT us Ailyn Cabrera MD LAB BLOOD ORDERABLES Final Re sult Performing Organization Address City/Va Hospital/ZIP Co de Phone Number [facility] [address] [place] [address] * Phosphorus, Plasma (12/17/2024 3:22 PM EDT) Phosphorus, Plasma 3.5 2.5 - 4.5 mg/dL 12/17/2024 4:08 PM EDT [facility] Blood Venous blood specimen / Unknown Venipuncture / Unknown 12/17/2024 3:22 PM EDT 12/17/2024 3:38 PM EDT us Lisa Lloyd DO LAB BLOOD ORDERABLES Final Resu lt Performing Organization Address City/[facility] Hospital/ZIP Co de Phone Number [facility] [address] [place] [address] * (ABNORMAL) Comprehensive Metabolic Panel, Plasma (12/17/2024 3:22 PM EDT) Glucose, Plasma 133(H) 74 - 99 mg/dL 12/17/2024 4:08 PM EDT [facility] BUN, Plasma 11 8 - 23 mg/dL 12/17/2024 4:08 PM EDT [facility] Creatinine, Plasma 1.14(H) 0.60 - 1.10 mg/dL 12/17/2024 4:08 PM EDT [facility] BUN/Creatinine Ratio 10 12/17/2024 4:08 PM EDT [facility] Sodium, Plasma 142 136 - 145 mmol/L 12/17/2024 4:08 PM EDT [facility] Potassium, Plasma 3.7 3.6 - 4.9 mmol/L 12/17/2024 4:08 PM EDT [facility] Chloride, Plasma 105 97 - 107 mmol/L 12/17/2024 4:08 PM EDT [facility] CO2, Plasma 27 22 - 29 mmol/L 12/17/2024 4:08 PM EDT [facility] Anion Gap 10 6 - 16 mmol/L 12/17/2024 4:08 PM EDT [facility] Total Calcium, Plasma 8.7(L) 8.9 - 10.2 mg/dL 12/17/2024 4:08 PM EDT [facility] Total Protein 6.5 6.3 - 7.9 g/dL 12/17/2024 4:08 PM EDT [facility] Albumin, Plasma 3.1(L) 3.5 - 5.2 g/dL 12/17/2024 4:08 PM EDT [facility] AST, Plasma 17 10 - 35 U/L 12/17/2024 4:08 PM EDT [facility] ALT, Plasma 10 10 - 35 U/L 12/17/2024 4:08 PM EDT [facility] Alkaline Phosphatase, Plasma 75 46 - 142 U/L 12/17/2024 4:08 PM EDT [facility] Total Bilirubin, Plasma 0.3 0.2 - 1.1 mg/dL 12/17/2024 4:08 PM EDT [facility] eGFRcr 53.9 mL/min/1.7 3m*2 12/17/2024 4:08 PM EDT [facility] Comment:Reported eGFRcr in m L/min/1.73m2 is based the CKD-EPI 2020 equation that does not use a race coefficient. Blood Venous blood specimen / Unknown Venipuncture / Unknown 12/17/2024 3:22 PM EDT 12/17/2024 3:38 PM EDT us Lisa Lloyd DO LAB BLOOD ORDERABLES Final Resu lt Performing Organization Address City/[facility] Hospital/ZIP Co de Phone Number [facility] [address] [place] [address] * (ABNORMAL) Magnesium (12/17/2024 3:22 PM EDT) [facility] Magnesium, Plasma 1.7(L) 1.9 - 2.4 mg/dL 12/17/2024 4:08 PM EDT [facility] Blood Venous blood specimen / Unknown Venipuncture / Unknown 12/17/2024 3:22 PM EDT 12/17/2024 3:38 PM EDT Gordy Purvis APRN, [facility] LAB BLOOD ORDERAB LES Final Result Performing Organization Address [facility] Hospital/[facility] Co de Phone Number [facility] [address] [place] [address] * Type and Screen (12/17/2024 3:22 PM EDT) [facility] ABO/Rh O Positive 12/17/2024 12:01 AM EDT BLOOD BANK Antibody Screen Negative 12/17/2024 12:01 AM EDT BLOOD BANK Specimen Expiration 12/20/2024 23:59 12/17/2024 12:01 AM EDT BLOOD BANK Blood Venous blood specimen / Unknown Venipuncture / Unknown 12/17/2024 3:22 PM EDT 12/17/2024 3:39 PM EDT Abhilash Bangura MD LAB BLOOD BANK TEST ORDERABLES Final Result Performing Organization Address City/[facility] Hospital/ZIP Co de Phone Number BLOOD BANK [address] [place] [address], [place] * Wilbur auris Surveillance by PCR (12/17/2024 4:24 AM EDT) [facility] Wilbur auris PCR Result Not Detected Not Detected 12/19/2024 5:43 AM EDT [facility] Swab (Axilla and Groin) Non-blood Collection / Unknown 12/17/2024 4:24 AM EDT 12/17/2024 5:09 AM EDT Narrative [facility] - 12/19/2024 5:43 AM EDT This PCR assay was developed and its performance characteristics determined by [facility] as appropriate for clinical purposes. This assay has not been cleared or approved by the FDA, but is performed in a CLIA regulated laboratory that is qualified to perform high-complexity testing. us Desi Pop MD LAB MICROBIOLOGY - GENERAL ORDER SOLOMON Final Result Performing Organization Address City/[facility] Hospital/ZIP Co de Phone Number [facility] [address] [place] [address] * (ABNORMAL) POCT glucose meter (12/16/2024 7:29 PM EDT) POCT Glucose 218(H) 74 - 99 mg/dL 12/16/2024 7:31 PM EDT [facility]ALTH[facility]ARE LAB Comment:Accuracy of a [...] for testing. Comment 12/16/2024 7:31 PM EDT HEALTHCARE LAB Campground Caretaker ID Vale Batista 12/16/2024 7:31 PM EDT HEALTHCARE LAB Device ID [id number] 12/16/2024 7:31 PM EDT HEALTHCARE LAB Specimen Type POC Capillary 12/16/2024 7:31 PM EDT [facility] Blood Capillary blood specimen / Unknown 12/16/2024 7:29 PM EDT 12/16/2024 7:31 PM EDT us Desi Pop MD LAB POINT OF CARE TE ST DOCKED DEVICE UNSOLICITED RESULTS Final Result Performing Organization Address City/[facility] Hospital/ZIP Co de Phone Number [facility] [address] [place] [address] * (ABNORMAL) POCT glucose meter (12/16/2024 4:55 PM EDT) POCT Glucose 193(H) 74 - 99 mg/dL 12/16/2024 4:57 PM EDT HEALTHCARE LAB Comment:Accuracy of a [...] for testing. Comment 12/16/2024 4:57 PM EDT HEALTHCARE LAB Campground Caretaker ID Kike William 025 4:57 PM EDT HEALTHCARE LAB Device ID [id number] 12/16/2024 4:57 PM EDT HEALTHCARE LAB Specimen Type POC Capillary 12/16/2024 4:57 PM EDT [facility] LAB Blood Capillary blood specimen / Unknown 12/16/2024 4:55 PM EDT 12/16/2024 4:57 PM EDT us Desi Pop MD LAB POINT OF CARE TE ST DOCKED DEVICE UNSOLICITED RESULTS Final Result Performing Organization Address City/[facility] Hospital/ZIP Co de Phone Number [facility] [address] [place] [address] * Fungal Culture, Tissue and GARO (12/16/2024 1:59 PM EDT) Culture Reading Mycological 4 Weeks Fungal culture overgrown with bacteria 12/30/2024 6:53 AM EDT [facility] GARO No fungal elements seen 12/30/2024 6:53 AM EDT [facility] Bone Topography unknown / Unknown 12/16/2024 1:59 PM EDT 12/16/2024 3:02 PM EDT Comment:Pre-op diagnosis: Incisional infection [T81.49XA] us Abhilash Bangura MD LAB MICROBIOLOGY - GENERAL ORD ERABLES Final Result [facility] [address] [place] [address] * (ABNORMAL) Bone Culture and Gram Stain (12/16/2024 1:59 PM EDT) Culture Light Growth 12/21/2024 3:10 PM EDT [facility] Culture Pseudomonas aeruginosa MDR, PRODUCTION PROOFREADER(AA) DONAVAN 12/21/2024 3:10 PM EDT [facility] Comment: This isolate has been identified using the FDA Approved LoopNeter CA System The organism value for this result has been updated. These results have been appended to the previously preliminary verified report. Edited result: Previously reported as Pseudomonas aeruginosa on 12/20/2024 at 0807 EDT. This is a corrected result. Previous organism was Pseudomonas aeruginosa MDR, GAMING TABLE OPERATOR on 12/20/2024 at 1256 EDT. Gram Stain Result Moderate Polymorphonuclear leukocytes 12/21/2024 3:10 PM EDT [facility] Gram Stain Result No organisms seen 12/21/2024 3:10 PM EDT [facility] Bone Topography unknown / Unknown 12/16/2024 1:59 PM EDT 12/16/2024 3:02 PM EDT Comment:Pre-op diagnosis: Incisional infection [T81.49XA] Narrative Organism Antibiotic Method Susceptibility Pseudomonas aeruginosa MDR, PRODUCTION PROOFREADER Aztreonam DONAVAN 8 ug/ml: Susceptible Pseudomonas aeruginosa MDR, PRODUCTION PROOFREADER Cefepime DONAVAN 8 ug/ml: Susceptible Pseudomonas aeruginosa MDR, PRODUCTION PROOFREADER Levofloxacin DONAVAN >4 ug/ml: Resistant Pseudomonas aeruginosa MDR, PRODUCTION PROOFREADER Meropenem DONAVAN >8 ug/ml: Resistant Pseudomonas aeruginosa MDR, PRODUCTION PROOFREADER Tobramycin DONAVAN >8 ug/ml: Resistant Pseudomonas aeruginosa MDR, PRODUCTION PROOFREADER Piperacillin/Tazobactam ETEST 96.0 ug/ml: Resistant Comment:The previously repor samaria component Piperacillin/Tazobactam is no longer being reported. us Abhilash Bangura MD LAB MICROBIOLOGY - GENERAL ORD ERABLES Edited Result - Final [facility] [address] [place] [address] * AFB Culture, Non Respiratory Source and Acid Fast Stain (12/16/2024 1:59 PM EDT) AFB Culture No Mycobacterial Growth at 6 Weeks 01/29/2025 4:48 PM EDT [facility] Acid Fast Stain No acid fast bacilli seen 01/29/2025 4:48 PM EDT [facility] Bone Topography unknown / Unknown 12/16/2024 1:59 PM EDT 12/16/2024 3:02 PM EDT Comment:Pre-op diagnosis: Incisional infection [T81.49XA] Abhilash Bangura MD LAB MICROBIOLOGY - GENERAL ORD ERABLES Final Result Performing Organization Address [facility] Hospital/ZIP Co de Phone Number [facility] [address] [place] [address] * Anaerobic Culture (12/16/2024 1:59 PM EDT) Culture No anaerobes isolated 12/20/2024 2:47 PM EDT [facility] Bone Topography unknown / Unknown 12/16/2024 1:59 PM EDT 12/16/2024 3:02 PM EDT Comment:Pre-op diagnosis: Incisional infection [T81.49XA] Abhilash Bangura MD LAB MICROBIOLOGY - GENERAL ORD ERABLES Final Result Performing Organization Address City/[facility] Hospital/[facility] Co de Phone Number [facility] [address] [place] [address] * (ABNORMAL) Routine Culture and Gram Stain (12/16/2024 1:58 PM EDT) Culture Light Growth 12/21/2024 3:10 PM EDT [facility] Culture Pseudomonas aeruginosa MDR, PRODUCTION PROOFREADER(AA) DONAVAN 12/21/2024 3:10 PM EDT [facility] Comment: This isolate has been identified using the FDA Approved Medine[employer] CA System The organism value for this result has been updated. These results have been appended to the previously preliminary verified report. Edited result: Previously reported as Pseudomonas aeruginosa on 12/20/2024 at 0807 EDT. This is a corrected result. Previous organism was Pseudomonas aeruginosa PRODUCTION PROOFREADER on 12/21/2024 at 1131 EDT. Gram Stain Result Moderate Polymorphonuclear leukocytes 12/21/2024 3:10 PM EDT [facility] Gram Stain Result No organisms seen 12/21/2024 3:10 PM EDT [facility] Swab Topography unknown / Unknown 12/16/2024 1:58 PM EDT 12/16/2024 3:01 PM EDT Comment:Pre-op diagnosis: Incisional infection [T81.49XA] Narrative Organism Antibiotic Method Susceptibility Pseudomonas aeruginosa MDR, PRODUCTION PROOFREADER Aztreonam DONAVAN 8 ug/ml: Susceptible Pseudomonas aeruginosa MDR, PRODUCTION PROOFREADER Cefepime DONAVAN 8 ug/ml: Susceptible Pseudomonas aeruginosa MDR, PRODUCTION PROOFREADER Levofloxacin DONAVAN >4 ug/ml: Resistant Pseudomonas aeruginosa MDR, PRODUCTION PROOFREADER Meropenem DONAVAN >8 ug/ml: Resistant Pseudomonas aeruginosa MDR, PRODUCTION PROOFREADER Tobramycin DONAVAN >8 ug/ml: Resistant Pseudomonas aeruginosa MDR, PRODUCTION PROOFREADER Piperacillin/Tazobactam ETEST 96.0 ug/ml: Resistant Comment:The previously repor samaria component Piperacillin/Tazobactam is no longer being reported. us Abhilash Bangura MD LAB MICROBIOLOGY - GENERAL ORD ERABLES Edited Result - Final Performing Organization Address City/Va Hospital/ZIP Co de Phone Number [facility] [address] [place] [address] * Fungal Culture, Routine (12/16/2024 1:58 PM EDT) Culture No Fungal Growth at 1 Week 12/23/2024 6:39 AM EDT [facility] Swab Topography unknown / Unknown 12/16/2024 1:58 PM EDT 12/16/2024 3:01 PM EDT Comment:Pre-op diagnosis: Incisional infection [T81.49XA] us Abihlash Bangura MD LAB MICROBIOLOGY - GENERAL ORD ERABLES Final Result [facility] [address] [place] [address] * Anaerobic Culture (12/16/2024 1:58 PM EDT) Culture No anaerobes isolated 12/20/2024 2:47 PM EDT [facility] Swab Topography unknown / Unknown 12/16/2024 1:58 PM EDT 12/16/2024 3:01 PM EDT Comment:Pre-op diagnosis: Incisional infection [T81.49XA] us Abhilash Bangura MD LAB MICROBIOLOGY - GENERAL ORD ERABLES Final Result Performing Organization Address City/[facility] [facility] Co de Phone Number [facility] [address] [place] [address] * (ABNORMAL) POCT glucose meter (12/16/2024 12:53 PM EDT) POCT Glucose 152(H) 74 - 99 mg/dL 12/16/2024 12:55 PM EDT [facility] Comment:Accuracy of [...] Comment 12/16/2024 12:55 PM EDT [facility] Campground Caretaker ID Christina Pierce 12/17/19 12:55 PM EDT [facility]ARE LAB Device ID [id number] 12/16/2024 12:55 PM EDT [facility] Specimen Type POC Venous 12/16/2024 12:55 PM EDT [facility] Blood Venous blood specimen / Unknown 12/16/2024 12:53 PM EDT 12/16/2024 12:55 PM EDT us Desi Pop MD LAB POINT OF CARE TE ST DOCKED DEVICE UNSOLICITED RESULTS Final Result Performing Organization Address [facility] Co de Phone Number [facility]ALTH[facility]ARE [facility] [address] [place] [address] * (ABNORMAL) Respiratory Culture and Gram Stain (12/16/2024 8:47 AM EDT) Culture Smear contains >=10 squamous epithelial cells per low power field, suggestive of poor quality. Culture not performed. A credit has been issued. 12/16/2024 9:50 AM EDT [facility] Gram Stain Result Greater than 10 Epithelial cells/LPF(A) 12/16/2024 9:50 AM EDT [facility] Gram Stain Result Fewer than 25 WBC/LPF(A) 12/16/2024 9:50 AM EDT [facility] Gram Stain Result Few Gram positive cocci in clusters(A) 12/16/2024 9:50 AM EDT [facility] Gram Stain Result Rare Gram positive cocci in pairs and chains(A) 12/16/2024 9:50 AM EDT [facility] Gram Stain Result Few Gram negative rods(A) 12/16/2024 9:50 AM EDT [facility] Gram Stain Result Rare Budding yeast(A) 12/16/2024 9:50 AM EDT [facility] Sputum Coughed sputum specimen / Unknown Non-blood Collection / Unknown 12/16/2024 8:47 AM EDT 12/16/2024 9:09 AM EDT us Gordy Purvis APRN, DNP LAB MICROBIOLOGY - GENERAL ORDERABLES Final Result [facility] [address] [place] [address] * Histoplasma Galactomannan EIA, Urine (SO) (12/16/2024 8:39 AM EDT) Histoplasma Galactomannan EIA, Urine <0.3 <0.3 ng/mL 12/17/2024 5:07 PM EDT [facility] (BEAKER) Comment: This test is used for the [...] Histoplasma Galactomannan EIA is a product of [employer]. and is labeled for in-vitro diagnostic use. This test has been registered with the FDA and is considered safe and effective for the detection of Histoplasma Galactomannan. Testing Performed at: [facility] [address] [place] [address], [facility] [address] [place] [address] Weight Checker: Anatoly Turk, PhD [facility] ([facility]) CLIA # [id number] FLAG Interpretation: A = Abnormal, H = High, L = Low Urine Urine specimen obtained by clean catch procedure / Unknown Non-blood Collection / Unknown 12/16/2024 8:39 AM EDT 12/16/2024 9:04 AM EDT Narrative ALLIE FINK) - 12/17/2024 5:07 PM EDT Release to patient in [facility]->Immediate us Gordylianet Purvis APRN, DNP LAB REF LAB BLOOD AND FLUID ORD Final Result ALLIE FINK) * Streptococcus pneumoniae and Legionella Urinary Antigen (12/16/2024 8:39 AM EDT) Legionella pneumophila serogroup 1 Antigen Result (Urine) Negative Negative 12/16/2024 10:35 AM EDT [facility] Streptococcus pneumoniae Antigen Result (Urine) Negative Negative 12/16/2024 10:35 AM EDT [facility] Urine Urine specimen obtained by clean catch procedure / Unknown Non-blood Collection / Unknown 12/16/2024 8:39 AM EDT 12/16/2024 9:09 AM EDT us Gordy Purvis APRN, DNP LAB MICROBIOLOGY - GENERAL ORDERABLES Final Result Performing Organization Address [facility] Co de Phone Number [facility] [address] [place] [address] * (ABNORMAL) POCT glucose meter (12/16/2024 8:28 AM EDT) POCT Glucose 145(H) 74 - 99 mg/dL [...] Comment 12/16/2024 8:42 AM EDT [facility]ALTH[facility]ARE LAB Campground Caretaker ID Cecilia Arroyon 8:42 AM EDT HEALTHCARE LAB Device ID [id number] 12/16/2024 8:42 AM EDT [facility] Specimen Type POC Capillary 12/16/2024 8:42 AM EDT [facility] Blood Capillary blood specimen / Unknown 12/16/2024 8:28 AM EDT 12/16/2024 8:42 AM EDT us Desi Pop MD LAB POINT OF CARE TE ST DOCKED DEVICE UNSOLICITED RESULTS Final Result Performing Organization Address [facility] Co de Phone Number HEALTHCARE LAB [address] [place] [address] * APTT (12/16/2024 8:24 AM EDT) aPTT 26 25 - 35 sec 12/16/2024 8:43 AM EDT [facility] Blood Venous blood specimen / Unknown Venipuncture / Unknown 12/16/2024 8:24 AM EDT 12/16/2024 8:28 AM EDT us Abhilash Bangura MD LAB BLOOD ORDERABLES Final Res ult Performing Organization Address City/[facility]/ZIP Co de Phone Number [facility] [address] [place] [address] * (ABNORMAL) Prothrombin Time/INR (12/16/2024 8:24 AM EDT) Prothrombin Time 15.1(H) 12.0 - 14.3 sec 12/16/2024 8:42 AM EDT [facility] INR 1.2(H) 0.9 - 1.1 12/16/2024 8:42 AM EDT [facility] Blood Venous blood specimen / Unknown Venipuncture / Unknown 12/16/2024 8:24 AM EDT 12/16/2024 8:28 AM EDT Narrative [facility] - 12/16/2024 8:42 AM EDT OPTIMAL INR RANGES FOR PATIENT ON ORAL ANTICOAGULANT THERAPY Prevention of venous thromboembolism INR 2.0 to 3.0 In patients with heart disease: Atrial fibrillation INR 2.0 to 3.0 Valvular heart disease INR 2.0 to 3.0 Tissue heart valves INR 2.0 to 3.0 Mechanical prosthetic valves INR 2.5 to 3.5 Prevention of recurrent SD INR 2.5 to 3.5 Abhilash Bangura MD LAB BLOOD ORDERABLES Final Res ult Performing Organization Address [facility] Co de Phone Number [facility] [address] [place] [address] * Methicillin Resistant Staphylococcus aureus (MRSA) by PCR (12/16/2024 7:50 AM EDT) Pathologist [facility] Methicillin Resistant Staphylococcus aureus (MRSA) by PCR Not Detected Not Detected 12/16/2024 10:01 AM EDT [facility] Swab Both anterior nares / Unknown Non-blood Collection / Unknown 12/16/2024 7:50 AM EDT 12/16/2024 8:46 AM EDT Narrative [facility] - 12/16/2024 10:01 AM EDT This test is FDA approved for use with nares swab specimens using the eSwabs. This test is used for clinical purposes. It should not be regarded as investigational or for research. This laboratory is certified under the Clinical Laboratory improvement Amendments of 1988 (CLIA-88 as qualified to perform high complexity clinical laboratory testing. Gordy Purvis APRN, DNP LAB MICROBIOLOGY - GENERAL ORDERABLES Final Result Performing Organization Address [facility] Co de Phone Number [facility] [address] [place] [address] * Multi Drug Resistance Test (12/16/2024 7:50 AM EDT) Culture No growth at day 1 12/17/2024 9:52 AM EDT [facility] Swab (Nares and Carole Rectal) Non-blood Collection / Unknown 12/16/2024 7:50 AM EDT 12/16/2024 8:45 AM EDT Narrative [facility] - 12/17/2024 9:52 AM EDT This test was developed and its performance characteristics determined by the [facility]. Although the media is FDA-approved, it is not FDA-approved for all specimen types submitted. The FDA has determined that such clearance or approval is not necessary. This test is used for surveillance purposes. It should not be regarded as investigational or for research. The [facility] is certified under the Clinical Laboratory Improvement Amendments of 1988 (CLIA-88) as qualified to perform high complexity clinical laboratory testing. Gordy Purvis APRN, DNP LAB MICROBIOLOGY - GENERAL ORDERABLES Final Result Performing Organization Address [facility] Co de Phone Number [facility] [address] [place] [address] * (ABNORMAL) Procalcitonin (12/16/2024 5:52 AM EDT) Procalcitonin, Plasma 0.15(H) <0.09 ng/mL 12/16/2024 7:10 AM EDT [facility] Blood Venous blood specimen / Unknown Venipuncture / Unknown 12/16/2024 5:52 AM EDT 12/16/2024 5:55 AM EDT Narrative [facility] - 12/16/2024 7:10 AM EDT [...] predict 28 day mortality risk. Please consult [email or web address] for more information. Test performed at [facility]. us Gordy Purvis APRN, DNP LAB BLOOD ORDERAB LES Final Result [facility] [address] [place] [address] * Blood Culture (Aerobic/Anaerobet Set) (12/16/2024 5:52 AM EDT) Culture No growth at day 5 12/21/2024 7:01 AM EDT [facility] Blood Venous blood specimen / Unknown Venipuncture / Unknown 12/16/2024 5:52 AM EDT 12/16/2024 6:14 AM EDT Narrative [facility] - 12/21/2024 7:01 AM EDT Low blood volume submitted, results may be compromised us Amilcar Ibarra MD LAB MICROBIOLOGY - G ENERAL ORDERABLES Final Result [facility] [address] [place] [address] * (ABNORMAL) C-reactive protein (12/16/2024 5:52 AM EDT) CRP, Plasma 54.2(H) <=8.0 mg/L 12/16/2024 6:44 AM EDT [facility] Blood Venous blood specimen / Unknown Venipuncture / Unknown 12/16/2024 5:52 AM EDT 12/16/2024 5:55 AM EDT Narrative [facility] - 12/16/2024 6:44 AM EDT This CRP test is appropriate for assessment of infection, systemic inflammation and/or tissue injury. To assess cardiovascular disease risk order high sensitivity CRP (CRPH). us Amilcar Ibarra MD LAB BLOOD ORDERABLES Final Result Performing Organization Address City/[facility]/ZIP Co de Phone Number [facility] [address] [place] [address] * (ABNORMAL) Sedimentation Rate, Automated (12/16/2024 5:52 AM EDT) Sedimentation Rate 46(H) <30 mm/hr 2024 6:08 AM EDT [facility] Blood Venous blood specimen / Unknown Venipuncture / Unknown 12/16/2024 5:52 AM EDT 12/16/2024 5:55 AM EDT Amilcar Ibarra MD LAB BLOOD ORDERABLES Final Result Performing Organization Address [facility] Co de Phone Number [facility] [address] [place] [address] * (ABNORMAL) CBC W/O Differential (12/16/2024 5:52 AM EDT) WBC Count 9.08 3.70 - 10.30 10*3/uL LAB HEMATOLOGY METHOD 12/16/2024 5:57 AM EDT [facility] RBC Count 2.69(L) 3.90 - 5.20 10*6/uL LAB HEMATOLOGY METHOD 12/16/2024 5:57 AM EDT [facility] HGB 8.0(L) 11.2 - 15.7 g/dL LAB HEMATOLOGY METHOD 12/16/2024 5:57 AM EDT [facility] HCT 25.6(L) 34.0 - 45.0 % LAB HEMATOLOGY METHOD 12/16/2024 5:57 AM EDT [facility] Platelet Count 187 155 - 369 10*3/uL LAB HEMATOLOGY METHOD 12/16/2024 5:57 AM EDT [facility] MCV 95 79 - 98 fL LAB HEMATOLOGY METHOD 12/16/2024 5:57 AM EDT [facility] MCH 29.7 26.0 - 32.0 pg LAB HEMATOLOGY METHOD 12/16/2024 5:57 AM EDT [facility] MCHC 31.3 30.7 - 35.5 g/dL LAB HEMATOLOGY METHOD 12/16/2024 5:57 AM EDT [facility] RDW 18.7(H) 11.5 - 14.5 % LAB HEMATOLOGY METHOD 12/16/2024 5:57 AM EDT [facility] MPV 9.4 8.8 - 12.5 fL LAB HEMATOLOGY METHOD 12/16/2024 5:57 AM EDT [facility] nRBC 0.0 <=0.0 per 100 WBCs LAB HEMATOLOGY METHOD 12/16/2024 5:57 AM EDT [facility] Blood Venous blood specimen / Unknown Venipuncture / Unknown 12/16/2024 5:52 AM EDT 12/16/2024 5:55 AM EDT Abhilash Bangura MD LAB BLOOD ORDERABLES Final Res ult [facility] [address] [place] [address] * (ABNORMAL) Basic Metabolic Panel, Plasma (12/16/2024 5:52 AM EDT) Glucose, Plasma 168(H) 74 - 99 mg/dL 12/16/2024 6:44 AM EDT [facility] BUN, Plasma 18 8 - 23 mg/dL 12/16/2024 6:44 AM EDT [facility] Creatinine, Plasma 1.50(H) 0.60 - 1.10 mg/dL 12/16/2024 6:44 AM EDT [facility] BUN/Creatinine Ratio 12 12/16/2024 6:44 AM EDT [facility] Sodium, Plasma 138 136 - 145 mmol/L 12/16/2024 6:44 AM EDT [facility] Potassium, Plasma 3.8 3.6 - 4.9 mmol/L 12/16/2024 6:44 AM EDT [facility] Chloride, Plasma 100 97 - 107 mmol/L 12/16/2024 6:44 AM EDT [facility] CO2, Plasma 24 22 - 29 mmol/L 12/16/2024 6:44 AM EDT [facility] Anion Gap 14 6 - 16 mmol/L 12/16/2024 6:44 AM EDT [facility] Total Calcium, Plasma 9.0 8.9 - 10.2 mg/dL 12/16/2024 6:44 AM EDT [facility] eGFRcr 38.8 mL/min/1.7 3m*2 12/16/2024 6:44 AM EDT [facility] Comment:Reported eGFRcr in m L/min/1.73m2 is based the CKD-EPI 2020 equation that does not use a race coefficient. Blood Venous blood specimen / Unknown Venipuncture / Unknown 12/16/2024 5:52 AM EDT 12/16/2024 5:55 AM EDT us Abhilash Bangura MD LAB BLOOD ORDERABLES Final Res ult [facility] [address] [place] [address] * (ABNORMAL) Magnesium, Plasma (12/16/2024 5:52 AM EDT) Magnesium, Plasma 1.0(L) 1.9 - 2.4 mg/dL 12/16/2024 6:44 AM EDT [facility] Blood Venous blood specimen / Unknown Venipuncture / Unknown 12/16/2024 5:52 AM EDT 12/16/2024 5:55 AM EDT us Abhilash Bangura MD LAB BLOOD ORDERABLES Final Res ult [facility] [address] [place] [address] * Phosphorus, Plasma (12/16/2024 5:52 AM EDT) Phosphorus, Plasma 2.9 2.5 - 4.5 mg/dL 12/16/2024 6:44 AM EDT [facility] Blood Venous blood specimen / Unknown Venipuncture / Unknown 12/16/2024 5:52 AM EDT 12/16/2024 5:55 AM EDT Abhilash Bangura MD LAB BLOOD ORDERABLES Final Res ult Performing Organization Address City/[facility] Co de Phone Number [facility] [address] [place] [address] * ECG Adult (12/16/2024 4:31 AM EDT) EKG DIAGNOSIS CLASS Abnormal MUSE ECG Ventricular Rate 150 BPM MUSE ECG QRSD Interval 86 ms MUSE ECG QT Interval 314 ms MUSE ECG QTC Interval 496 ms MUSE ECG R Media 9 degrees MUSE ECG T Wave Media 62 degrees MUSE ECG Diagnosis Atrial fibrillation with rapid ventricular response MUSE ECG Diagnosis Nonspecific ST and T wave abnormality MUSE ECG Diagnosis Abnormal ECG MUSE ECG Diagnosis MUSE ECG Diagnosis Confirmed by Cleve Fuller ([id number]) on 12/16/2024 1:22:18 PM MUSE ECG 12/16/2024 4:31 AM EDT 12/16/2024 1:22 PM EDT Gordy Purvis APRN, DNP ECG ORDERABLES F inal Result Performing Organization Address City/[facility] Co de Phone Number MUSE ECG * (ABNORMAL) Protime-INR (12/16/2024 3:36 AM EDT) Prothrombin Time 15.2(H) 12.0 - 14.3 sec 12/16/2024 4:00 AM EDT [facility] INR 1.2(H) 0.9 - 1.1 12/16/2024 4:00 AM EDT [facility] Blood Venous blood specimen / Unknown Venipuncture / Unknown 12/16/2024 3:36 AM EDT 12/16/2024 3:47 AM EDT Narrative [facility] - 12/16/2024 4:00 AM EDT OPTIMAL INR RANGES FOR PATIENT ON ORAL ANTICOAGULANT THERAPY Prevention of venous thromboembolism INR 2.0 to 3.0 In patients with heart disease: Atrial fibrillation INR 2.0 to 3.0 Valvular heart disease INR 2.0 to 3.0 Tissue heart valves INR 2.0 to 3.0 Mechanical prosthetic valves INR 2.5 to 3.5 Prevention of recurrent SD INR 2.5 to 3.5 Ailyn Cabrera MD LAB BLOOD ORDERABLES Final Re sult Performing Organization Address [facility] de Phone Number [facility] [address] [place] [address] * Anti Xa Level by Unfractionated Heparin - Baseline (12/16/2024 3:36 AM EDT) Anti Xa Level Unfractionated Heparin <0.11 <1.00 IU/mL 12/16/2024 4:02 AM EDT [facility] Blood Venous blood specimen / Unknown Venipuncture / Unknown 12/16/2024 3:36 AM EDT 12/16/2024 3:47 AM EDT Narrative [facility] - 12/16/2024 4:02 AM EDT Therapeutic Range: UFH Full Dose and ACS/SD protocols*: 0.30 - 0.70 IU/mL UFH Low Dose protocol*: 0.25 - 0.50 IU/mL UFH prophylaxis: Not established Ailyn Cabrera MD LAB BLOOD ORDERABLES Final Re sult Performing Organization Address [facility] Co de Phone Number [facility] [address] [place] [address] * (ABNORMAL) Troponin T, High Sensitivity, 2 Hour, Plasma (12/16/2024 1:39 AM EDT) Troponin T, High Sensitivity, 2 Hour 28(H) <14 ng/L 12/16/2024 2:08 AM EDT [facility] Troponin Delta 1 <10 ng/L 12/16/2024 2:08 AM EDT [facility] Troponin Delta Interpretation Not Significant 12/16/2024 2:08 AM EDT [facility] Comment:Not Significant. No acute change in troponin observed between the baseline and 2 hour samples. Blood Venous blood specimen / Unknown Venipuncture / Unknown 12/16/2024 1:39 AM EDT 12/16/2024 1:40 AM EDT us Balwinder Lock MD LAB BLOOD ORDERABLES Final Resul t [facility] [address] [place] [address] * CT Angio Pulmonary Embolism (12/16/2024 1:30 [...] with the final edited report. Drafted by Kenneht Overton MD on 12/16/2024 1:36 AM Final [...] Manjit Uriostegui MD on 12/16/2024 2:02 AM Ailyn Cabrera MD IMG CT PROCEDURES Final Resul t * EKG now - STAT (adult) (12/16/2024 12:47 AM EDT) EKG DIAGNOSIS CLASS Borderline Normal MUSE ECG Ventricular Rate 76 BPM MUSE ECG Atrial Rate 76 BPM MUSE ECG NC Interval 144 ms MUSE ECG QRSD Interval 88 ms MUSE ECG QT Interval 350 ms MUSE ECG QTC Interval 393 ms MUSE ECG P Media 73 degrees MUSE ECG R Media 23 degrees MUSE ECG T Wave Media 66 degrees MUSE ECG Diagnosis Sinus rhythm with premature supraventricular complexes MUSE ECG Diagnosis Otherwise normal ECG MUSE ECG Diagnosis MUSE ECG Diagnosis Confirmed by Corona Donovan ([id number]) on 12/17/2024 10:53:55 PM MUSE ECG 12/16/2024 12:4 7 AM EDT 12/17/2024 10:53 PM EDT us Ailyn Cabrera MD ECG ORDERABLES Final Result MUSE ECG * SARS CoV-2/COVID-19 by PCR - Rapid (12/15/2024 11:19 PM EDT) [facility] SARS CoV-2/COVID-1 9 RNA PCR Result Not Detected Not Detected 12/16/2024 1:22 AM EDT [facility] Swab Nasopharyngeal structure / Unknown Non-blood Collection / Unknown 12/15/2024 11:19 PM EDT 12/16/2024 12:39 AM EDT Narrative [facility] - 12/16/2024 1:22 AM EDT [...] ORDER SOLOMON Final Result Performing Organization Address City/[facility] Co de Phone Number [facility] [address] [place] [address] * Nasopharyngeal Respiratory Panel (12/15/2024 11:19 PM EDT) [facility] Nasopharyngeal Respiratory PCR Interpretation Not Detected for all analytes Not Detected for all analytes 12/16/2024 2:33 AM EDT [facility] Swab Nasopharyngeal structure / Unknown Non-blood Collection / Unknown 12/15/2024 11:19 PM EDT 12/16/2024 12:39 AM EDT Narrative [facility] - 12/16/2024 2:33 AM EDT [...] Respiratory PCR Panel is performed using the [employer] instrument. This test is FDA approved for use with Nasopharyngeal swabs only. This test is used for clinical purposes. It should not be regarded as investigational or for research. The [facility] is certified under the Clinical Laboratory Improvement Amendments of 1988 (CLIA-88) as qualified to perform high complexity clinical laboratory testing. Balwinder Lock MD LAB MICROBIOLOGY - GENERAL ORDER SOLOMON Final Result [facility] [address] [place] [address] * (ABNORMAL) CBC W/O Differential - Baseline (12/15/2024 11:18 PM EDT) WBC Count 9.58 3.70 - 10.30 10*3/uL LAB HEMATOLOGY METHOD 12/16/2024 3:22 AM EDT [facility] RBC Count 2.55(L) 3.90 - 5.20 10*6/uL LAB HEMATOLOGY METHOD 12/16/2024 3:22 AM EDT [facility] HGB 7.5(L) 11.2 - 15.7 g/dL LAB HEMATOLOGY METHOD 12/16/2024 3:22 AM EDT [facility] HCT 24.7(L) 34.0 - 45.0 % LAB HEMATOLOGY METHOD 12/16/2024 3:22 AM EDT [facility] Platelet Count 206 155 - 369 10*3/uL LAB HEMATOLOGY METHOD 12/16/2024 3:22 AM EDT [facility] MCV 97 79 - 98 fL LAB HEMATOLOGY METHOD 12/16/2024 3:22 AM EDT [facility] MCH 29.4 26.0 - 32.0 pg LAB HEMATOLOGY METHOD 12/16/2024 3:22 AM EDT [facility] MCHC 30.4(L) 30.7 - 35.5 g/dL LAB HEMATOLOGY METHOD 12/16/2024 3:22 AM EDT [facility] RDW 18.6(H) 11.5 - 14.5 % LAB HEMATOLOGY METHOD 12/16/2024 3:22 AM EDT [facility] MPV 10.7 8.8 - 12.5 fL LAB HEMATOLOGY METHOD 12/16/2024 3:22 AM EDT [facility] nRBC 0.0 <=0.0 per 100 WBCs LAB HEMATOLOGY METHOD 12/16/2024 3:22 AM EDT [facility] Blood Venous blood specimen / Unknown Venipuncture / Unknown 12/15/2024 11:18 PM EDT 12/15/2024 11:29 PM EDT Ailyn Cabrera MD LAB BLOOD ORDERABLES Final Re sult [facility] [address] [place] [address] * Blood Culture (Aerobic/Anaerobet Set) (12/15/2024 11:18 PM EDT) Culture No growth at day 5 12/21/2024 2:01 AM EDT [facility] Blood Venous blood specimen / Unknown Venipuncture / Unknown 12/15/2024 11:18 PM EDT 12/16/2024 12:59 AM EDT Balwinder Lock MD LAB MICROBIOLOGY - GENERAL ORDER SOLOMON Final Result [facility] [address] [place] [address] * (ABNORMAL) Sed rate, automated (12/15/2024 11:18 PM EDT) Sedimentation Rate 50(H) <30 mm/hr 2024 11:40 PM EDT [facility] Blood Venous blood specimen / Unknown Venipuncture / Unknown 12/15/2024 11:18 PM EDT 12/15/2024 11:29 PM EDT us Balwinder Lokc MD LAB BLOOD ORDERABLES Final Resul t Performing Organization Address [facility]/ZIP Co de Phone Number [facility] [address] [place] [address] * (ABNORMAL) C-reactive protein (12/15/2024 11:18 PM EDT) CRP, Plasma 50.7(H) <=8.0 mg/L 12/15/2024 11:55 PM EDT [facility] Blood Venous blood specimen / Unknown Venipuncture / Unknown 12/15/2024 11:18 PM EDT 12/15/2024 11:23 PM EDT Narrative [facility] - 12/15/2024 11:55 PM EDT This CRP test is appropriate for assessment of infection, systemic inflammation and/or tissue injury. To assess cardiovascular disease risk order high sensitivity CRP (CRPH). us Balwinder Lock MD LAB BLOOD ORDERABLES Final Resul t Performing Organization Address [facility] Co de Phone Number [facility] [address] [place] [address] * (ABNORMAL) Blood gas panel, venous (12/15/2024 11:18 PM EDT) pH, Venous 7.39 7.32 - 7.43 LAB HEMATOLOGY METHOD 12/15/2024 11:36 PM EDT [facility] pCO2, Venous 54(H) 37 - 52 mmHg LAB HEMATOLOGY METHOD 12/15/2024 11:36 PM EDT [facility] pO2, Venous 39 25 - 40 mmHg LAB HEMATOLOGY METHOD 12/15/2024 11:36 PM EDT [facility] SO2, Measured, Venous 68 65 - 80 % LAB HEMATOLOGY METHOD 12/15/2024 11:36 PM EDT [facility] [facility] Base Excess, Venous 6.5(H) -2.0 - 3.0 mmol/L LAB HEMATOLOGY METHOD 12/15/2024 11:36 PM EDT [facility] Bicarbonate, Calculated, Venous 32(H) 22 - 26 mmol/L LAB HEMATOLOGY METHOD 12/15/2024 11:36 PM EDT [facility] Hematocrit, Whole Blood 23.4(L) 34.0 - 45.0 % LAB HEMATOLOGY METHOD 12/15/2024 11:36 PM EDT [facility] Sodium, Whole Blood 142 136 - 145 mmol/L LAB HEMATOLOGY METHOD 12/15/2024 11:36 PM EDT [facility] Potassium, Whole Blood 3.8 3.6 - 4.9 mmol/L LAB HEMATOLOGY METHOD 12/15/2024 11:36 PM EDT [facility] Chloride, Whole Blood 100 97 - 107 mmol/L LAB HEMATOLOGY METHOD 12/15/2024 11:36 PM EDT [facility] Glucose, Whole Blood 126(H) 74 - 99 mg/dL LAB HEMATOLOGY METHOD 12/15/2024 11:36 PM EDT [facility] Lactate, Venous, Whole Blood 0.8 0.5 - 2.2 mmol/L LAB HEMATOLOGY METHOD 12/15/2024 11:36 PM EDT [facility] Ionized Calcium, Whole Blood 4.7 4.6 - 5.1 mg/dL LAB HEMATOLOGY METHOD 12/15/2024 11:36 PM EDT [facility] Blood Venous blood specimen / Unknown Venipuncture / Unknown 12/15/2024 11:18 PM EDT 12/15/2024 11:34 PM EDT us Balwinder Lock MD LAB BLOOD ORDERABLES Final Resul t [facility] [address] [place] [address] * BNP (12/15/2024 11:18 PM EDT) N-Terminal, PROBNP, Plasma 879 0 - 899 pg/mL 12/15/2024 11:55 PM EDT [facility] Blood Venous blood specimen / Unknown Venipuncture / Unknown 12/15/2024 11:18 PM EDT 12/15/2024 11:23 PM EDT us Balwinder Lock MD LAB BLOOD ORDERABLES Final Resul t Performing Organization Address City/[facility] Hospital/ZIP Co de Phone Number [facility] [address] [place] [address] * (ABNORMAL) Troponin now and 120 min (12/15/2024 11:18 PM EDT) Troponin T, High Sensitivity, 0 Hour 29(H) <14 ng/L 12/15/2024 11:55 PM EDT [facility] Blood Venous blood specimen / Unknown Venipuncture / Unknown 12/15/2024 11:18 PM EDT 12/15/2024 11:23 PM EDT us Balwinder Lock MD LAB BLOOD ORDERABLES Final Resul t Performing Organization Address [facility] Hospital/ZIP Co de Phone Number [facility] [address] [place] [address] * (ABNORMAL) Lipase (12/15/2024 11:18 PM EDT) Lipase, Plasma 15(L) 19 - 63 U/L 12/15/2024 11:55 PM EDT [facility] Blood Venous blood specimen / Unknown Venipuncture / Unknown 12/15/2024 11:18 PM EDT 12/15/2024 11:23 PM EDT us Balwinder Lock MD LAB BLOOD ORDERABLES Final Resul t Performing Organization Address [facility] Hospital/ZIP Co de Phone Number [facility] [address] [place] [address] * (ABNORMAL) CMP (12/15/2024 11:18 PM EDT) Glucose, Plasma 132(H) 74 - 99 mg/dL 12/15/2024 11:55 PM EDT [facility] BUN, Plasma 19 8 - 23 mg/dL 12/15/2024 11:55 PM EDT [facility] Creatinine, Plasma 1.48(H) 0.60 - 1.10 mg/dL 12/15/2024 11:55 PM EDT [facility] BUN/Creatinine Ratio 13 12/15/2024 11:55 PM EDT [facility] Sodium, Plasma 140 136 - 145 mmol/L 12/15/2024 11:55 PM EDT [facility] Potassium, Plasma 3.9 3.6 - 4.9 mmol/L 12/15/2024 11:55 PM EDT [facility] Chloride, Plasma 100 97 - 107 mmol/L 12/15/2024 11:55 PM EDT [facility] CO2, Plasma 28 22 - 29 mmol/L 12/15/2024 11:55 PM EDT [facility] Anion Gap 12 6 - 16 mmol/L 12/15/2024 11:55 PM EDT [facility] Total Calcium, Plasma 9.1 8.9 - 10.2 mg/dL 12/15/2024 11:55 PM EDT [facility] Total Protein 7.1 6.3 - 7.9 g/dL 12/15/2024 11:55 PM EDT [facility] Albumin, Plasma 3.2(L) 3.5 - 5.2 g/dL 12/15/2024 11:55 PM EDT [facility] AST, Plasma 16 10 - 35 U/L 12/15/2024 11:55 PM EDT [facility] ALT, Plasma 8(L) 10 - 35 U/L 12/15/2024 11:55 PM EDT [facility] Alkaline Phosphatase, Plasma 85 46 - 142 U/L 12/15/2024 11:55 PM EDT [facility] Total Bilirubin, Plasma 0.5 0.2 - 1.1 mg/dL 12/15/2024 11:55 PM EDT [facility] eGFRcr 39.4 mL/min/1.7 3m*2 12/15/2024 11:55 PM EDT [facility] Comment:Reported eGFRcr in m L/min/1.73m2 is based the CKD-EPI 2020 equation that does not use a race coefficient. Blood Venous blood specimen / Unknown Venipuncture / Unknown 12/15/2024 11:18 PM EDT 12/15/2024 11:23 PM EDT Balwinder Lock MD LAB BLOOD ORDERABLES Final Resul t [facility] [address] [place] [id number] * XR Chest 1 View (12/15/2024 10:01 [...] Mathew Mathew MD on 12/15/2024 10:12 PM Balwinder Lock MD IMG XR PROCEDURES Final Result * ECG Adult (12/15/2024 8:23 PM EDT) EKG DIAGNOSIS CLASS Borderline Normal MUSE ECG Ventricular Rate 95 BPM MUSE ECG Atrial Rate 95 BPM MUSE ECG NC Interval 126 ms MUSE ECG QRSD Interval 86 ms MUSE ECG QT Interval 366 ms MUSE ECG QTC Interval 459 ms MUSE ECG P Media 75 degrees MUSE ECG R Media 9 degrees MUSE ECG T Wave Media 67 degrees MUSE ECG Diagnosis Sinus rhythm [...] Unspecified anemia COPD (chronic obstructive pulmonary disease) Chronic airway obstruction, not elsewhere classified Diabetes mellitus Type II or unspecified type diabetes mellitus [...] 2 g, Intravenous, Once, 1 dose, On Thu12/17/24 at 1800, Routine New Bag 12/17/2024 10:45 PM EDT 2 g 25 mL/hr magnesium sulfate IVPB 2 g 2 g, Intravenous, Once, 1 dose, On Thu12/19/24 at 0915, Routine New Bag 12/19/2024 8:37 [...] 1 dose, On Thu12/20/24 at 0830, Routine Given 12/20/2024 9:55 AM EDT 40 mEq potassium chloride CR (Klor-Con) ER tablet 40 mEq 40 mEq, Oral, Once, 1 dose, On Thu12/22/24 at 0830, Routine Given 12/22/2024 9:16 AM [...] PRN, Starting on Thu12/19/24 at 0005, Until Corrina 12/22/24 at 1743, Routine, Flush Before and [...] PRN, Starting on Thu12/19/24 at 0005, Until Corrina 12/22/24 at 1743, Routine, After blood draws and if any blood seen in tubing. Tiotropium Mendon Monohydrate (Spiriva Respimat) 2.5 MCG/ACT inhaler 2 puff 2 puff, Inhalation, Daily, First dose on Thu12/16/24 at 0900, Until Discontinued Given 12/22/2024 9:20 AM EDT 2 puffs Given 12/21/2024 9:41 AM EDT 2 puffs [...] Intravenous, Every 24 hours, First dose on 12/18/24 at 1600, Until Discontinued, at 166.7 mL/hr, [...] Comment: cluster) 1752 (Given - Provider: Emily Vera, JOSE MARTIN) 1700 (Canceled Entry - Provider: Automatic Discharge Provider - Comment: Automatically canceled at discontinue of medication order) cefepime (Maxipime) 2 g in sodium chloride 0.9% 100 mL IVPB (vial adapter required) 2 g, Intravenous, Every 8 hours, First dose (after last modification) on Thu12/18/24 at 1400, Until Discontinued, Routine 0205 (New Bag - Provider: Rufus Florez, JOSE MARTIN)0956 (New Bag - Provider: Daphnie Perez, JOSE MARTIN)1716 (New Bag - Provider: Daphnie Perez RN) 0105 (New Bag - Provider: Rufus Florez, JOSE MARTIN)0941 (New Bag - Provider: Emily Vera, JOSE MARTIN)1752 (New Bag - Provider: Emily Vera, JOSE MARTIN) 0159 (New Bag - Provider: Rufus Florez, JOSE MARTIN)0918 (New Bag - Provider: Quentin Montoya RN) [...] Routine 1300 (Given - Provider: Emily Vera RN)2119 (Given - Provider: Rufus Florez RN) 916 (Given - Provider: Quentin Montoya RN) FLUoxetine (PROzac) capsule 40 mg 40 mg, Oral, Daily, First dose on Thu12/16/24 at 1500, Until Discontinued, Routine 0955 (Given - Provider: Daphnie Perez RN) 0941 (Given - Provider: Emily Vera RN) 0916 (Given - Provider: Quentin Montoya RN) furosemide (Lasix) tablet 40 mg 40 mg, Oral, Daily, First dose on Thu12/21/24 at 0900, Until Discontinued, Routine 09 (Given - Provider: Emily Vera RN) 0917 (Given - Provider: Quentin Montoya RN) gabapentin (Neurontin) capsule 400 mg 400 mg, Oral, 3 times daily, First dose on Thu12/19/24 at 1600, Until Discontinued 0955 (Given - Provider: Daphnie Perez RN)171 (Given - Provider: Daphine Perez RN - Comment: cluster)2028 (Given - Provider: Rufus Florez RN) 0941 (Given - Provider: Emily Vera RN)175 (Given - Provider: Emily Vera RN - Comment: [facility])2121 (Given - Provider: Rufus Florez RN) 0919 [...] Perez RN - Reason: Order parameters not met)1714 (Given - Provider: Daphnie Perez RN - [...] Florez RN - Reason: Order parameters not met)202 (Not Given - Provider: Rufus Florez RN - Reason: Order parameters not met) 0105 (Not Given - Provider: Rufus Florez RN - Reason: Order parameters not met)2117 (Not Given - Provider: Rufus Florez RN - Reason: Order parameters not met) 201 (Not Given - Provider: Rufus Florez RN - Reason: Order parameters not met) levETIRAcetam (Keppra) tablet 1,000 mg 1,000 mg, Oral, 2 times daily, First dose on Thu12/16/24 at 2100, Until Discontinued, Routine 0955 (Given - Provider: Daphnie Perez RN)2028 (Given - Provider: Rufus Florez RN) 0941 (Given - Provider: Emily Vera, JOSE MARTIN)2120 (Given - Provider: Rufus Florez RN) 0916 [...] - Comment: cluster)2028 (Given - Provider: Rufus Florez, JOSE MARTIN) 0941 (Given - Provider: Emily Vera, JOSE MARTIN) metoprolol tartrate (Lopressor) tablet 50 mg 50 mg, Oral, 3 times daily, First dose (after last modification) on Thu12/21/24 at 1600, Until Discontinued, Routine 1752 (Given - Provider: Emily Vera, JOSE MARTIN - Comment: cluster care)2120 (Given - Provider: Rufus Florez RN) 0917 (Given - Provider: Quentin Montoya, JOSE MARTIN)1600 (Canceled Entry - Provider: Automatic Discharge Provider - Comment: Automatically canceled at discontinue of medication order) mometasone-formoterol (Dulera 200) 200-5 MCG/ACT inhaler 2 puff(Linked Group 1) 2 puff, Inhalation, 2 times daily, First dose on Thu12/16/24 at 0900, Until Discontinued 0956 (Given - Provider: Daphnie Perez RN)2031 (Given - Provider: Rufus Florez RN) 09 (Given - Provider: Emily Vera, JOSE MARTIN)2121 (Given - Provider: Rufus Florez, JOSE MARTIN) 09 (Given - Provider: Quentin Montoya RN) montelukast (Singulair) tablet 10 mg 10 mg, Oral, Nightly, First dose on Thu12/19/24 at 2100, Until Discontinued, Routine 2029 (Given - Provider: Rufus Florez RN) 2120 [...] Routine 0916 (Given - Provid er: Quentin Montoya, JOSE MARTIN) sodium chloride 0.9 % flush 10 mL [...] Perez RN) 0106 (Given - Provider: Rufus Florez, JOSE MARTIN)1233 (Given - Provider: Emily Vera RN) 0159 [...] Florez RN) 0919 (Given - Provider: Quentin Montoya, JOSE MARTIN) Tiotropium [place] Monohydrate (Spiriva Respimat) 2.5 MCG/ACT inhaler 2 puff(Linked Group 1) 2 puff, Inhalation, Daily, First dose on Thu12/16/24 at 0900, Until Discontinued 0956 (Given - Provider: Daphnie Perez RN) 0941 (Given - Provider: Emily Vera, JOSE MARTIN) 0920 (Given - Provider: Quentin Montoya, JOSE MARTIN) Continuous Medication Order 12/20/2024 12/21/2024 12/22/2024 heparin 25,000 units/250 mL (100 unit/mL) infusion - Adult LOW DOSE Protocol (CANCELED) 0-35 Units/kg/hr 110 kg (0-38.5 mL/hr), Intravenous, Titrated, Starting on Thu12/16/24 at 0445, Until Thu12/21/24 at 1053, Routine 0015 (Rate/Dose Verify - [...] Vera, JOSE MARTIN)1144 (Stopped - Provider: Emily Vera RN) PRN Medication Order 12/20/2024 12/21/2024 12/22/2024 acetaminophen [...] 1437, Until Thu12/22/24 at 1743, Routine, anxiety ipratropium-albuterol (Duo-Neb) 0.5-2.5 mg/3 mL nebulizer solution 3 mL 3 mL, Nebulization, Every 6 hours PRN, Starting on Thu12/16/24 at 0631, Until Thu12/22/24 at 1743, Routine, shortness of breath, wheezing oxyCODONE (Roxicodone) immediate release tablet 10 mg(Linked Group 4) 10 mg, Oral, Every 4 hours PRN, Starting on 12/17/24 at 1153, Until Thu12/22/24 at 1743, Routine, severe pain 1059 (Given - Provider: Gregory Veliz, JOSE MARTIN) oxyCODONE (Roxicodone) immediate release tablet 5 mg(Linked [...] tubing. 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 12/16/2024 12/22/2024 Assessment Noted Time PHQ-9 Depression Total Score: 0 09/01/19 25 3:26 PM EDT A fall risk assessment has been complete d for the patient 11/29/2024 1:14 PM EDT A Body Mass Index follow-up plan has been documented for the patient 12/22/2024 2:34 PM EDT documented as of this encounter Care Teams [employer] Apprentice Relationship Specialty Start Date End Date Laurie Gutierrez MD [address] [place] [address] PCP - General 12/09/23 Joshua Martínez MD [address] [place] [phone] Consulting Physician Radiation Oncology 09/19/24 Sabine Morales LPN TCM Nurse 11/23/24 12/23/24 documented as of this encounter
--- OUTSIDE RECORDS SUMMARY | 2024-12-16 12:05 | XMS_ITS | Encounter Summary ---
Author Organization [facility] Address [address] [place] [address] Care Team Providers Care Door And Arrival Attendant Name Role Phone Laurie Gutierrez MD Primary Care Provider [phone] Joshua Martínez MD Unavailable Sabine Morales LPN Unavailable Unavailable Reason for Visit * Reason Comments Shortness of Breath * Auth/Cert (Routine) Specialty Diagnoses / Procedures Referred By Contac t Referred To Contact Diagnoses Dyspnea History of lung cancer Atrial fibrillation with RVR (CMS/HCC) Incisional infection Multiple subsegmental pulmonary emboli without acute cor pulmonale (CMS/HCC) Desi Pop MD [address] [place] [address] Phone: tel: fax: P[facility] H Inpatient [address] [place] [address] Phone: tel: Referral ID Status Reason Start Date Expiration Date Visits Re quested Visits Authorized [id number] 1 1 Encounter Details Date Type Department Care Team (Late st Contact Info) Description 12/16/2024 12:05 PM EDT - 12/16/2024 2:00 PM EDT Surgery [facility] A OPERATING ROOM [address] [place] [address] Abhilash Bangura MD [address] [facility] [address] [place] [address] IRRIGATION AND DEBRIDEMENT, WOUND [[id number] (CPT )] Surgery Details Date/Time Status Location OR Service Patient Class Case Class Case Type Trauma Case? 12/16/2024 12:05 PM Posted [facility] OR 07 Neurosurgery Inpatient E-Electi ve Panel 1 Procedure LRB Anes Op Region Wound Class Comments IRRIGATION AND DEBRIDEMENT, WOUND Left General Head Surgeon Surgeon Role Service Panel Abhilash Bangura MD Primary Neurosurgery 1 Barron Baer MD Resident - Assisting 1 documented in this encounter Social History Tobacco Use Types Packs/Day Years [...] living in a longterm (including now)? No 12/16/2024 CAGE ASSESSMENT Answer [...] drink first t laurie in the morning (EYE-STORAGE SPECIALIST) to steady your nerves or to get rid of a hangover? 0 12/02/2024 CAGE Questionnaire Score 0 025 Utilities Answer Date Recorded In the past 12 months has th e Known, gas, oil, or water company threatened to [...] Sign Reading Time Taken Comments Blood Pressure 107/49 12/16/2024 12:55 PM EDT Pulse 74 12/16/2024 12:55 PM EDT Temperature 37.1 C (98.8 F) 12/16/2024 12:55 PM EDT Respiratory Rate 19 12/16/2024 12:55 PM EDT Oxygen Saturation 96% 12/16/2024 12:55 PM EDT Inhaled Oxygen Concentration - - Weight 113 kg (249 lb 1.9 oz) 12/16/2024 4:22 AM EDT Height - - Body Mass Index 38.77 12/17/2024 12:00 AM EDT documented in this encounter Functional Status * Calculated C-SSRS Risk Score (Lifetime/Recent) Answer Date of Assessment Author No Risk Indicated 12/15/2024 9:03 PM EDT Jimmy Reid RN * Question Answer Date of Assessment Author 1. Wish to be (Past 1 Month) No 12/15/2024 9:03 PM EDT Jimmy Hughes RN 2. Non-Specific Active Suici radha Thoughts (Past 1 Month) No 12/15/2024 9:03 PM EDT Nina Hughes RN 6. Suicidal Behavior (Lifetime) No 5 9:03 PM EDT Jimmy Hughes RN documented as of this encounter Medications [...] tablets by mouth every 6 hours. Under [place] law, monthly prescriptions (30 days) can be [...] of 36units daily 01/19/20 25 nystatin (Mycostatin) 166329 UNIT/GM powder Apply on bottom 2 times [...] PCP name and Address: Laurie Gutierrez MD [address] [place] [address] Referring provider name and address: No referring [...] tablets by mouth every 6 hours. Under [place] law, monthly prescriptions (30 days) can be refilled at 25 days and three-month prescriptions (90 days) at 80 days. Please contact the insurance company with questions if refills are denied. atorvastatin 40 MG tablet Commonly known as: Lipitor Take 1 tablet by mouth every evening. Breztri Aerosphere 160-9-4.8 MCG/ACT aerosol Generic drug: Bkiivha-Liiqrauhehl-Sagzespelr Inhale 2 puffs 2 (two) times a [...] than 399=12units max of 36units daily nystatin 047221 UNIT/GM powder Commonly known as: Mycostatin Apply [...] medications were sent to [facility] -[place], [place] - [address], [facility] [address] cefepime 1 g injection These medications were sent to [facility] [place], [place] - 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 lung mass concerning for pneumonia vs [...] Time Provider Department Center 01/03/2025 9:00 AM ZOILA Vasquez 01/03/2025 9:40 AM Satnam Colvin MD [facility] 01/03/2025 11:00 AM [facility] 1 INFUSION TREATMENT [id number] [facility] 01/04/2025 2:30 PM [facility] 1 INFUSION TREATMENT [id number] [facility] 01/05/2025 1:00 PM Lia Barnes, SPOT WELDER IDBCCLX Marge 01/05/2025 2:30 PM [facility] 2 INFUSION TREATMENT [id number] [facility] 01/19/2025 9:20 AM [facility] 01/19/2025 10:45 AM Abhilash Bangura MD [facility] 01/26/2025 4:30 PM Lia Barnes, SPOT WELDER IDBCCLX Marge 03/08/2025 1:00 PM Teresita Oconnell MD [facility] I Pertinent Physical Exam At [...] Note Teresa Rivera 64 y.o. female CSN: [id number] Admission: 12/15/2024 8:36 PM Primary Problem: Dyspnea Patient medically ready for discharge. Patient to transfer home with family transport. Patient to go home with IV abx until 01/26/25. Patient receiving abx through [facility]. No home health able to be secured, so patient will get PICC line dressing and lab draws at [facility] office ([phone]) per patient preference. Patient to follow up with Neurosurgery, ID and oncology outpatient. Primary Oracle Security Consultant: Primary Caregiver: Self Assistance Available at Discharge: Availability of Care Givers (#Hours): 24 hours Family/Oracle Security Consultant(s) Willingness Assessed to care for patient at home: Yes Family/Oracle Security Consultant(s) Readiness Assessed to care for patient at home: Yes Housing Circumstances-Z Codes: Housing Circumstances (select all that apply): Low Income (101-300% Federal Poverty Guidlines) - Z596 Patient Referred to Financial or Community Resources: None Discharge Facility/Level of Care Needs: Discharge Facility/Level of Care Needs: 1-Home or Self Care Patient's Choice of Community Agency(s): Patient's Choice of Community Agency(s): [facility] Patient/Family Anticipated Services at Transition: Patient/Family Anticipated Services at Transition: outpatient care DME/Equipment Needed after Discharge: Equipment Currently Used at Home: commode chair, walker, rolling, wheelchair, manual, oxygen ([employer]) Equipment Needed After Discharge: none Readmission Within the Last 30 Days: Yes Medicare Documentation: Medicare Second Notice?: No (medicaid insurance) Follow-up: [facility] [address] [place] [address] Go on 12/26/2024 Go here for PICC [...] draws set up with [facility] office. Vonnie Gutierrez, JOSE MARTIN * Care Plan - Quentin Montoya RN - 12/22/2024 8:00 AM EDT Problem: Adult Inpatient Plan of Care Goal: Plan of Care Review Outcome: Ongoing, Progressing Flowsheets (Taken 12/22/2024 1106) Progress: improving Plan of Care Reviewed With: [...] Progressing Intervention: Promote Wound Healing Flowsheets (Taken 12/22/20241105) Sleep/Rest Enhancement: awakenings minimized consistent schedule promoted [...] Review Outcome: Ongoing, Progressing Flowsheets (Taken 12/22/2024 1106) Progress: improving Plan of Care Reviewed With: [...] Intervention: Prevent Skin Injury Flowsheets Taken 12/22/2024 030 Body Position: legs elevated weight shifting Taken 12/21/2024228 Skin Protection: protective footwear used pulse oximeter [...] Manage Hypoglycemia Flowsheets (Taken 12/21/20241916 by Emily Vera RN) Hypoglycemia Management: blood glucose monitored * [...] Ability Flowsheets Taken 12/21/20241916 by Emily Vera, JOSE MARTIN Activity Management: ambulated to bathroom Taken 12/20/20242014 by Rufus Florez RN Activity Assistance Provided: assistance, stand-by Problem: Diabetes Goal: Minimize Hypoglycemia Risk Intervention: Minimize and Manage Hypoglycemia Flowsheets (Taken 12/21/20241916) Hypoglycemia Management: blood glucose monitored * Progress Notes - Vonnie Gutierrez RN - 12/21/2024 2:38 PM EDT Case Management Adult Progress Note Teresa Rivera 64 y.o. female CSN: [id number] Admission: 12/15/2024 8:36 PM Primary Problem: Dyspnea [...] home health referrals. 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 Patient requesting to come to [facility] for PICC care and lab draws. RNCM set up with [facility] office. PT/OT recommend home with 24 assist and home health PT/OT. Will give outpatient PT/OT script due sylvia home health available. RNCM will continue to monitor for further discharge needs. Vonnie Gutierrez RN * Zachary LeahyBRETT - Nahomi Purdy, PharmD - 12/21/2024 2:00 PM EDT Images [...] to dispose of used syringes. * [facility] Nahomi Purdy, PharmD - 12/21/2024 1:59 PM EDT Images from the original note were not included. [id number] Enoxaparin Injection IMPORTANT WARNING: If you have [...] of all of the prescription and nonprescription (ctvg-hla-znkgeuy) medicines, vitamins, minerals, and dietary supplements you [...] or pharmacist about specific clinical use. The [employer] represents that the information provided hereunder was formulated with a reasonable standard of care, and in conformity with professional standards in the field. The [employer] makes no representations or warranties, express or implied, including, but not limited to, any implied warranty of merchantability and/or fitness for a particular purpose, with respect to such information and specifically disclaims all such warranties. Users are advised that decisions regarding drug therapy are complex medical decisions requiring the independent, informed decision of an appropriate health rn care manager, and the information is provided for informational purposes only. The entire monograph for a drug should be reviewed for a thorough understanding of the drug's actions, uses and side effects. The [employer] does not endorse or recommend the use of any drug.The information is not a substitute for medical care. AHFS?? Patient Medication Information?. ?? Copyright, 2023. The [employer]??, [address] [facility], [address], [place], [place]. All Rights Reserved. Duplication for commercial use must be authorized by [facility]. Selected Revisions: December 05, 2023. AHFS?? 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 female CSN: [id number] Admission: 12/15/2024 8:36 PM Primary Problem: Dyspnea [...] on 12/18 per neurosurgery. Ongoing discussion with communication consultant teams to determine timing of resuming oral anticoagulation as well as when to resume outpatient chemotherapy. PT & OTare consulted. 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 For all questions regarding OPAT after discharge should be directed to the OPAT Team at (Select Option 3 for IV Antibiotics/PICC Issues) between 8am-5pm. After 5 pm, or during weekends/ holidays, please call the paging finishing operator at to reach the on-call ID [...] is no recent study available for direct nwid-jv-xauw comparison. XR Chest 1 View Result Date: [...] had a respiratory culture that grew MDR PROCESSING TECH pseudomonas. She is now here with concern for postobstructive pneumonia and craniotomy surgical site infection. Blood cultures are NGTD. Patient ultimately had OR washout on 12/16 with NSGY with purulence/signs of infection associated with and below bone flap. Intra-operative cultures (+) PsA. PROBLEM LIST Craniotomy surgical site infection Pneumonia with history of MDR/PROCESSING TECH organism Multiple bilateral PE Small cell lung [...] PA-C Division of Infectious Diseases Available on [employer] Chat History, assessment, and plan discussed with ID attending, Dr. Shearer [1] Current Facility-Administered Medications Medication Dose Route Frequency Provider Last Rate Last Admin acetaminophen (Tylenol) tablet 650 mg 650 mg Oral q6h PRN Lisa Lloyd, DO 650 mg at 12/19/24 1022 atorvastatin (Lipitor) tablet 40 mg 40 mg Oral q PM Madujibeya, Gordy N, SPOT WELDER, DNP 40 mg at 12/19/24 1752 cefepime (Maxipime) 2 g in sodium chloride 0.9% 100 mL IVPB (vial adapter required) 2 g Ebasfxyumyku6h Lisa Lloyd, DO 36.7 mL/hr at 12/20/24 0956 2 g at 12/20/24 0956 cetirizine (ZyrTEC) tablet 10 mg 10 mg Oral Daily Madujibeya, Gordy N, SPOT WELDER, DNP 10 mg at 12/20/24 0955 glucose (Glutose) 40 % oral gel 15-30 grams of glucose 15-30 grams of glucose Sublingual q15 min PRN Madujibeya, Gordy N, SPOT WELDER, DNP Or dextrose 10 % (D10W) bolus 125 mL 125 mL Intravenous q15 min PRN Madujibeya, Gordy N, SPOT WELDER, DNP Or dextrose 10 % (D10W) bolus 250 mL 250 mL Intravenous q15 min PRN Madujibeya, Gordy N, SPOT WELDER, DNP Or glucagon (human recombinant) injection 1 mg 1 mg Intramuscular q15 min PRN Gordy Purvis APRN, DNP diphenhydrAMINE (Benadryl) tablet 25 mg 25 mg Oral q8h PRN Lisa Lloyd, DO 25 mg at 12/19/24 1414 FLUoxetine [...] PRN Lisa Lloyd DO 25 mg at 12/19/242055 insulin glargine-yfgn [...] Lisa Lloyd, DO 1,000 mg at 12/20/24 09 metoprolol tartrate (Lopressor) tablet 50 mg 50 mg Oral TID Lisa Lloyd, DO 50 mg at 12/20/24 09 Tiotropium [place] Monohydrate (Spiriva Respimat) 2.5 MCG/ACT inhaler 2 puff 2 puff Inhalation Daily Gordy Purvis APRN, DNP 2 puff at 12/20/24 0956 And mometasone-formoterol (Dulera 200) 200-5 MCG/ACT inhaler 2 puff 2 puff Inhalation BID Gordy Purvis APRN, DNP 2 puff at 12/20/24 0956 montelukast (Singulair) tablet 10 mg 10 mg Oral Nightly Lisa Lloyd C, DO 10 mg at 12/19/242055 mupirocin (Bactroban) 2 % ointment 1 Application 1 Application Each Nostril BID Lisa Lloyd C, DO 1 Application at 12/20/24954 oxyCODONE (Roxicodone) immediate release tablet 5 mg 5 mg Oral q4h PRN Gabino Lisa C, DO 5 mg at 12/18/242046 Or oxyCODONE (Roxicodone) immediate release tablet 10 mg 10 mg Oral q4h PRN Lloyd, Lisa C, DO 10 mg at 12/19/24 102 pantoprazole (Protonix) EC tablet 40 mg 40 mg Oral Daily Gordy Purvis APRN, DNP 40 mg at 12/20/24 0955 prochlorperazine (Compazine) tablet 10 mg 10 mg Oral q6h PRN Gordy Purvis APRN, VINCENZO sodium chloride 0.9 % flush 10 mL 10 mL Intravenous q12h Gordy Purvis APRN, DNP 10 mL at 12/20/24 0220 And sodium chloride 0.9 % flush 10 mL 10 mL Intravenous PRN Gordy Purvis APRN, VINCENZO sodium chloride 0.9 % flush 10 mL 10 mL Intravenous q12h Lloyd, Lisa C, DO 10 mL at 12/20/24 0220 sodium chloride 0.9 % flush 10 mL 10 mL Intravenous q1h PRN Gabino Lisa C, DO sodium chloride 0.9 % flush 20 mL 20 mL Intravenous q1h PRN Gabino Lisa C, DO [2] Allergies Allergen Reactions Cephalexin Nausea and Vomiting Lisinopril Cough Meloxicam Nausea * Progress Notes - ChristianJess Viktor - 12/20/2024 11:17 AM EDT Occupational Therapy [...] pulmonary disease) ([facility]) 10/25/2024 Small cell lung cancer ([facility]) 09/09/2024 Anemia 09/06/2024 Morbid obesity with BMI of 40.0-44.9, adult ([facility]) 09/02/2024 Pneumonia 08/05/2024 Type 2 diabetes mellitus without complications 08/24/2014 Diabetes mellitus ([facility]) 08/25/2013 Incisional infection 12/15/2024 Procedures 12/16/2024 Procedure(s): IRRIGATION AND DEBRIDEMENT, WOUND Past Medical History Patient has a past medical history of A-fib ([facility]), Anxiety, Brain tumor ([facility]), Chemotherapy-induced nausea and vomiting (08/28/2023), COPD (chronic obstructive pulmonary disease) ([facility]), Depression, Heart failure, Hyperlipidemia, Hypertension, Osteoarthritis, Pneumonia, Small cell lung cancer ([facility]), and Type 2 diabetes mellitus. [...] Present: Yes Family/Caregiver: Other (Specify) (pt's sister) Computer Programming Supervisor: Not Applicable Presentation Oxygen Therapy: Supplemental oxygen [...] Level of Mobility: Ambulatory- household only Mobility [place]: Independent gait with device History of Falls: [...] Mobility Bed Mobility Exam: Scooting/Bridging Level of [place]: Contact guard (to EOB) Physical/Nonphysical Assist: Supervision, Verbal Cues Assistive Device: Bed rails Bed Mobility Exam: Supine to Sit Level of [place]: Contact guard Physical/Nonphysical Assist: Supervision, Verbal Cues Assistive Device: Bed rails Transfers Transfer Exam: Sit to stand Level of [place]: Contact guard Physical/Nonphysical Assist: Supervision, Verbal Cues Assistive Device: Walker, rolling Transfer Exam: Stand to Sit Level of [place]: Contact guard Physical/Nonphysical Assist: Supervision, Verbal Cues [...] Where Assessed: Edge of bed Standardized Assessments [facility] 6-Click Daily Activities Help from Other: Don/Doff Regular Lower Body Clothings: Little Help From Other: Bathing: Little Help From Other: Toileting: Little Help From Other: Don/Doff Upper Body Clothings: None Help From Other: Grooming: None Help From Other: Eating Meals: None [facility] 6 Click - Daily Activities Score: 21 [...] embolism 12/16/2024 COPD (chronic obstructive pulmonary disease) ([facility]) 10/25/2024 Small cell lung cancer ([facility]) 09/09/2024 Anemia 09/06/2024 Morbid obesity with BMI of 40.0-44.9, adult ([facility]) 09/02/2024 Pneumonia 08/05/2024 Type 2 diabetes mellitus without complications 08/24/2014 Diabetes mellitus ([facility]) 08/25/2013 Incisional infection 12/15/2024 Procedures 12/16/2024 Procedure(s): IRRIGATION AND DEBRIDEMENT, WOUND Past Medical History Patient has a past medical history of A-fib ([facility]), Anxiety, Brain tumor ([facility]), Chemotherapy-induced nausea and vomiting (08/28/2023), COPD (chronic obstructive pulmonary disease) ([facility]), Depression, Heart failure, Hyperlipidemia, Hypertension, Osteoarthritis, Pneumonia, Small cell lung cancer ([facility]), and Type 2 diabetes mellitus. Past Surgical History Patient has a past surgical history that includes Tubal ligation (N/A); Tympanostomy tube placement(N/A); and Brain surgery. Precautions Medical Precautions: Fall precautions, Seizure precautions Medical Precautions: contact Subjective Patient agreeable to PT Evaluation. Patient reported hoping to drink a V8. Participants in Care Family/Caregiver Present: Yes Family/Caregiver: Other (Specify) (Sister) Computer Programming Supervisor: Not Applicable Presentation Oxygen Oxygen Therapy: Supplemental [...] Level of Mobility: Ambulatory- household only Mobility [place]: Independent gait with device History of Falls: [...] Mobility Bed Mobility Exam: Scooting/Bridging Level of [place]: Contact guard (to EOB) Physical/Nonphysical Assist: Supervision, Verbal Cues, Minimal cues Assistive Device: Bed rails Bed Mobility Exam: Supine to Sit Level of [place]: Contact guard Physical/Nonphysical Assist: Supervision, Verbal Cues, Minimal cues Assistive Device: Bed rails Verbal/tactile cues provided to use bed rails to assist with performing safe transfers. Patient demonstrated understanding. Transfers Transfer Exam: Sit to stand Level of [place]: Contact guard Physical/Nonphysical Assist: Supervision, Verbal Cues, Minimal cues Assistive Device: Walker, rolling Transfer Exam: Stand to Sit Level of [place]: Contact guard Physical/Nonphysical Assist: Supervision, Verbal Cues, [...] guard Standardized Assessments Standardized Assessments Standardized Assessments: AMPA 6-Clicks Mobility Assessment AMPA 6-Clicks Mobility Assessment Difficulty patient has turning [...] 3-5 steps with a railing?: A lot [facility] 6-Clicks Mobility Assessment Total : 17 [...] PM. * Progress Notes - Summer Eisenberg, SPOT WELDER, DNP - 12/20/2024 9:30 AM EDT Medical [...] cell lung cancer with resected oligometasis to SEWING MACHINE MAINTENANCE MECHANIC RUL lung mass concerning for pneumonia vs [...] Eisenberg APRN, DNP Division of Medical Oncology [address] [place] [address] * Care Plan - Daphnie Perez RN [...] Review Outcome: Ongoing, Progressing Flowsheets (Taken 12/20/2024 0251) Progress: improving Outcome Evaluation: does pt understand [...] Intervention: Prevent Skin Injury Flowsheets Taken 12/20/2024 025 Skin Protection: protective footwear used transparent dressing [...] Contributors Flowsheets Taken 12/20/2024 025 by Rufus Florez, RN Self-Care Promotion: independence encouraged BADL personal [...] from the original note were not included. [id number] PICC Line Care PICC stands for peripherally [...] arm Last Reviewed Date: 2024 00:00:00 ?? [id number] The [employer]. All rights reserved. This information is not intended as a substitute for professional medical care. Always follow your healthcare professional's instructions. * Cynthia Luz RN - 12/19/2024 4:08 PM EDT Images from the original note were not included. [id number] * Cynthia Luz RN - 12/19/2024 4:08 PM EDT Images from the original note were not included. [id number] * Cynthia Luz RN - 12/19/2024 4:08 [...] a medical facility. The geriatric case manager/social media editor will setthat up based on your insurance. [...] or during weekends/[place] holidays, call the paging finishing operator at . Ask for the infectious disease fellow assembler and tester electronics. Call the clinic if you have any of these: ? Fevers greater than 100.5??F ? An allergic reaction, such as rash ? Nausea, vomiting, or diarrhea ? New or returning redness near the IV line ? Redness, pain, swelling, or pus around the IV line * Zachary Ford - Jarek, Cynthia Chu RN - 12/19/2024 4:08 PM EDT Images from the original note were not included. [id number] Flushing Your PICC Line at Home Your [...] soap and water, use an alcohol-based hand data processing supervisor. The gel should have at least 60% [...] PICC. Last Reviewed Date: 2024 00:00:00 ?? [id number] The [employer]. All rights reserved. This information is not intended as a substitute for professional medical care. Always follow your healthcare professional's instructions. * [facility] - Cynthia Tilley RN - 12/19/2024 4:08 PM EDT Images from the original note were not included. [id number] Cefepime Injection WHY is this medicine prescribed? [...] of all of the prescription and nonprescription (eduf-ran-zrxntsj) medicines, vitamins, minerals, and dietary supplements you [...] or pharmacist about specific clinical use. The [employer] represents that the information provided hereunder was formulated with a reasonable standard of care, and in conformity with professional standards in the field. The [employer] makes no representations or warranties, express or implied, including, but not limited to, any implied warranty of merchantability and/or fitness for a particular purpose, with respect to such information and specifically disclaims all such warranties. Users are advised that decisions regarding drug therapy are complex medical decisions requiring the independent, informed decision of an appropriate health rn care manager, and the information is provided for informational purposes only. The entire monograph for a drug should be reviewed for a thorough understanding of the drug's actions, uses and side effects. The [employer] does not endorse or recommend the use of any drug.The information is not a substitute for medical care. AHFS?? Patient Medication Information?. ?? Copyright, 2023. The [employer]??, [address] [facility], [address], [place], [place]. All Rights Reserved. Duplication for commercial use must be authorized by [facility]. Selected Revisions: October 31, 2015. AHFS?? Patient Medication Information?. ?? Copyright, 2024 * [facility] - Cynthia Tilley RN - 12/19/2024 4:08 PM EDT Images from the original note were not included. 48[address] Central Line Infections You need a central [...] water. Or they use an alcohol-based hand data processing supervisor containing at least 60% alcohol. ? Using [...] (warm or cold), and use alcohol-based hand data processing supervisor with at least 60% alcohol as directed. To clean your hands well,follow the guidelines on this sheet. Visitors should wash their hands well when they arrive and when they leave. ? Make sure the health care staff and your visitors clean their hands. They should use soap and clean, running water or an alcohol-based hand data processing supervisor before and after checking the line. Don?t [...] good choice for cleaning your hands. The data processing supervisor should have at least 60% alcohol. Note that some germs can't be killed by alcohol. Your care team can answer any questions you have about when to use a hand data processing supervisor, or when it?s better to wash with soap and water. Follow these steps: ? Spread the hand data processing supervisor in the palm of one hand. (Check the package for specific guidelines.) ? Rub your hands together briskly. Clean the backs of your hands, the palms, between your fingers, and up your wrists. ? Rub until the data processing supervisor is gone and your hands are completely [...] skin. Last Reviewed Date: 2024 00:00:00 ?? [id number] The [employer]. All rights reserved. This information is not [...] Lumen PICC Patient Specific Outpatient Circumstances: [address] [address] (patients home address) Patient will be staying with her sister Era at: [address] Family Support: Extended Emergency Contact Information Primary Emergency Contact: Zachary Rivera Mobile Relation: Son Preferred language: Filipino Computer Programming Supervisor needed? No Secondary Emergency Contact: Aurora Rivera Mobile Relation: Daughter Preferred language: Filipino Computer Programming Supervisor needed? No Contact information: Teresa Rivera [phone] Outpatient services (including home infusion, home health, facility referral: See recent [facility] case management/social work note for finalization of services ID follow up appointment: Future Appointments Date Time Provider Department Center 01[facility] 9[facility]20 [facility]25 10:45 AM [facility]ash Bang[facility] 03/08/2025 1:00 PM Teresita Oconnell MD [facility] Patient Assessment I spoke with patient at [...] via secure chat or staff messaging in [employer]. Patient and family will need to be [...] Note Teresa Rivera 64 y.o. female CSN: [id number] Admission: 12/15/2024 8:36 PM Primary Problem: Dyspnea [...] is no recent study available for direct iupp-cz-ddte comparison. XR Chest 1 View Result Date: [...] had a respiratory culture that grew MDR PROCESSING TECH pseudomonas. She is now here with concern for postobstructive pneumonia and craniotomy surgical site infection. Blood cultures are NGTD. Patient ultimately had OR washout on 12/16 with NSGY with purulence/signs of infection associated with and below bone flap. Intra-operative cultures (+) PsA. PROBLEM LIST Craniotomy surgical site infection Pneumonia with history of MDR/PROCESSING TECH organism Multiple bilateral PE Small cell lung [...] PA-C Division of Infectious Diseases Available on [employer] Chat History, assessment, and plan discussed with ID attending, Dr. Shearer [1] Current Facility-Administered Medications Medication Dose Route Frequency Provider Last Rate Last Admin acetaminophen (Tylenol) tablet 650 mg 650 mg Oral q6h PRN Lisa Lloyd DO 650 mg at 12/19/24 1022 atorvastatin (Lipitor) tablet 40 mg 40 mg Oral q PM Gordy Purvis APRN, DNP 40 mg at 12/18/24 1702 cefepime (Maxipime) 2 g in sodium chloride 0.9% 100 mL IVPB (vial adapter required) 2 g Gjfwfbqmfdzk4b Lisa Lloyd, DO 36.7 mL/hr at 12/19/24 1023 2 g at 12/19/24 1023 cetirizine (ZyrTEC) tablet 10 mg 10 mg Oral Daily Gordy Purvis APRN, DNP 10 mg at 12/19/24 0837 glucose [...] 35 Units/kg/hr Intravenous Titrated Lisa Lloyd DO 9.9 mL/hr at 12/19/24 0909 9 [...] tablet 50 mg 50 mg Oral TID Perez Lloydah Lenka, DO 50 mg at 12/19/24 0837 metroNIDAZOLE (Flagyl) tablet 500 mg 500 mg Oral q8h Perez Lloydah C, DO 500 mg at 12/19/24 0837 Tiotropium [place] Monohydrate (Spiriva Respimat) 2.5 MCG/ACT inhaler 2 [...] 5 mg 5 mg Oral q4h PRN Perez Lloydah Lenka, DO 5 mg at 12/18/247 Or oxyCODONE (Roxicodone) immediate release tablet 10 mg 10 mg Oral q4h PRN Perez Lloydah Lenka, DO 10 mg at 12/19/24 1022 pantoprazole (Protonix) EC tablet 40 mg 40 mg Oral Daily Gordy Purvis APRN, DNP 40 mg at 12/19/24 0837 prochlorperazine (Compazine) tablet 10 mg 10 mg Oral q6h PRN Gordy Purvis APRN, DNP sodium chloride 0.9 % flush 10 mL 10 mL Intravenous q12h Gordy Purvis APRN, DNP 10 mL at 12/19/24 0207 And sodium chloride 0.9 % flush 10 mL 10 mL Intravenous PRN Gordy Purvis, SHARDA, DNP sodium chloride 0.9 % flush 10 mL 10 mL Intravenous q12h Lisa Lloyd, DO 10 mL at 12/19/24 1200 sodium chloride 0.9 % flush 10 mL 10 mL Intravenous q1h PRN Lias Lloyd, DO sodium chloride 0.9 % flush [...] SDH. She underwent washout with NSGY on 8/1 and is being followed by ID. She has intermittently required blood transfusion and remains on heparin drip which was restarted on 12/18 per neurosurgery. Ongoing discussion with communication consultant teams to determine timing of resuming oral anticoagulation as well as when to resume outpatient chemotherapy. PT & OTare consulted. 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 inpatient, no refill history on [...] of Hospital Medicine Epic Chat Preferred Pager: [phone] 12/19/2024 [1] atorvastatin, 40 mg, Oral, q PM cefepime, 2 g, Intravenous, q8h cetirizine, 10 mg, Oral, Daily FLUoxetine, 40 mg, Oral, Daily insulin glargine-yfgn, 5 Units, Subcutaneous, Nightly levETIRAcetam, 1,000 mg, Oral, BID magnesium sulfate, 2 g, Intravenous, Once metoprolol tartrate, 50 mg, Oral, TID metroNIDAZOLE, 500 mg, Oral, q8h Tiotropium [place] Monohydrate, 2 puff, Inhalation, Daily And mometasone-formoterol, [...] Intervention: Optimize Glycemic Control Flowsheets (Taken 12/19/2024 075) Hyperglycemia Management: blood glucose monitored Goal: Minimize [...] Progressing Flowsheets (Taken 12/18/2024 0113 by Mitzi Porter RN) Plan of Care Reviewed With: patient Goal: [...] Management Interventions: medication (see MAR) Taken 12/18/2024 0113 by Mitzi Porter RN Sleep/Rest Enhancement: awakenings [...] Please call with any questions or concerns. [phone] Félix Duval MD Resident Physician PGY-1 Department of Neurosurgery [facility] Cosigned by Abhilash Bangura MD at 12/19/2024 [...] Dai RN Authorized by: Lisa Lloyd DO [place] Protocol: Verbal consent obtained?: Yes Written consent [...] Left Location (Adult): Basilic vein (Largest vein, xdeyjjiw-ll-olzl ratio 18%.) Site selection rationale: Infiltration from PIV in RUE. Patient position: Supine Catheter Lot #: [id number] Catheter financial intern: Bard Power PICC Provena Catheter with Solo [...] okay to use order will be placed. Winkelman limb precaution armband placed on left wrist [...] cell lung cancer with resected oligmetastasis to SEWING MACHINE MAINTENANCE MECHANIC RUL lung mass concerning for pneumonia vs [...] admission without hydronephrosis Seizure - Treated with [facility] inpatient, no refill history on [...] DO Department of Internal Medicine Division of [facility] Preferred Pager: [phone] 12/18/2024 [1] atorvastatin, 40 mg, Oral, q PM cefepime, 2 g, Intravenous, q12h cetirizine, 10 mg, Oral, Daily FLUoxetine, 40 mg, Oral, Daily insulin glargine-yfgn, 5 Units, Subcutaneous, Nightly levETIRAcetam, 1,000 mg, Oral, BID metoprolol tartrate, 25 mg, Oral, TID metroNIDAZOLE, 500 mg, Oral, q8h Tiotropium [place] Monohydrate, 2 puff, Inhalation, Daily And mometasone-formoterol, [...] Please call with any questions or concerns. [phone] Crystal Vuong MD Resident Physician, PGY-2 Department of Neurosurgery [facility] Cosigned by Abhilash Bangura MD at 12/19/2024 [...] Intervention: Optimize Tissue Perfusion Flowsheets (Taken 12/18/2024 0113) Bleeding Precautions: blood pressure closely monitored * [...] adjusted per tolerance * Consults - Cynthia Jorge, RN - 12/17/2024 3:22 PM EDT VAT [...] Please call with any questions or concerns. [phone] Zachary Brown MD Resident Physician, PGY-2 Department of neurosurgery Pager: [phone] Cosigned by Abhilash Bangura MD at 12/19/2024 [...] cell lung cancer with resected oligometasis to SEWING MACHINE MAINTENANCE MECHANIC RUL lung mass concerning for pneumonia vs [...] confusion. -- --Oncology History--- initially diagnosed with [id number], stage IIIA limited stage of the right [...] by me; any relevant updates made in [facility]. Social History Lives in [place]. Former smoker. Allergies Reviewed by me; any relevant updates made in [facility]. Medications Current Medications[1] Physical Exam Vitals: 12/16/24 [...] Labs, Imaging, and Microbiology Reviewed personally in [facility]. Notable as discussed in Assessment and Plan. [1] Current Facility-Administered Medications: atorvastatin (Lipitor) tablet 40 mg, 40 mg, Oral, q PM, Kentonujibeya, Gordy N, SPOT WELDER, DNP cetirizine (ZyrTEC) tablet 10 mg, 10 mg, Oral, Daily, Madujibeya, Gordy N, SPOT WELDER, DNP glucose (Glutose) 40 % oral gel [...] Protocol, 0-35 Units/kg/hr, Intravenous, Titrated, Jimmy Jones, , Stopped at 12/16/24 0743 insulin [...] Oral, TID, Gordy Purvis APRN, DNP Tiotropium [place] Monohydrate (Spiriva Respimat) 2.5 MCG/ACT inhaler 2 [...] tablets by mouth every 6 hours. Under [place] law, monthly prescriptions (30 days) can be refilled at 25 days and three-month prescriptions (90 days) at80 days. Please contact the insurance company with questions if refills are denied. (Patient takingdifferently: Take 2 tablets by mouth every 6 hours.), Disp: 100 tablet, Rfl: 0 atorvastatin (Lipitor) 40 MG tablet, Take 1 tablet by mouth every evening., Disp: , Rfl: Duztrtw-Jloipktldhk-Sqpvotuabo (Breztri Aerosphere) 160-9-4.8 MCG/ACT aerosol, Inhale 2 [...] 36units daily, Disp: , Rfl: nystatin (Mycostatin) 111324 UNIT/GM powder, Apply on bottom 2 times [...] cell lung cancer with resected oligmetastasis to SEWING MACHINE MAINTENANCE MECHANIC RUL lung mass concerning for pneumonia vs [...] admission without hydronephrosis Seizure - Treated with [facility] inpatient, no refill history on [...] DO Department of Internal Medicine Division of [facility] Chat Preferred Pager: [phone] 12/17/2024 [1] atorvastatin, 40 mg, Oral, q PM cefepime, 2 g, Intravenous, q12h cetirizine, 10 mg, Oral, Daily FLUoxetine, 40 mg, Oral, Daily insulin glargine-yfgn, 5 Units, Subcutaneous, Nightly levETIRAcetam, 1,000 mg, Oral, BID metoprolol tartrate, 25 mg, Oral, TID metroNIDAZOLE, 500 mg, Oral, q8h Tiotropium [place] Monohydrate, 2 puff, Inhalation, Daily And mometasone-formoterol, [...] RN Outcome: Ongoing, Progressing 12/16/20242327 by Catherine Davis, RN Outcome: Ongoing, Progressing * Anesthesia PACU [...] CrCl: ~49 ml/min Pepper Evans PharmD, [facility] Internal Medicine Clinical Pharmacist * Op Note - Barron Baer MD - 12/16/2024 1:53 PM EDT Operative Note Date: 12/16/24 Location: [place] Name: Teresa Rivera, : 1960, Diagnoses: Pre-op Diagnosis Incisional infection Post-op Diagnosis Incisional infection Procedure(s): Wound washout/revision with craniectomy for infected bone flap Attending Surgeon(s): * Abhilash Bangura - Primary Nanosystems Engineer(s): * Barron Baer MD - Resident - [...] Note Teresa Rivera 64 y.o. female CSN: [id number] Admission: 12/15/2024 8:36 PM Primary Problem: Dyspnea Director Of Student Financial Aid reviewed chart to complete this Initial Case Management Assessment. PCP: Laurie Gutierrez MD Emergency Contact: Extended Emergency Contact Information Primary Emergency Contact: NicoleZachary Mobile Relation: Son Preferred language: Filipino Computer Programming Supervisor needed? No Secondary Emergency Contact: NicoleAurora Mobile Relation: Daughter Preferred language: Filipino Computer Programming Supervisor needed? No Insurance: Primary Visit Coverage Payer Plan Sponsor Code Group Number Group Name [employer] [id number] Primary Visit Coverage Subscriber Subscriber ID Subscriber Name Subscriber SSN Subscriber Address [id number] [place] [id number] [place] [address] Patient information: Primary Caregiver: Self Support System: Immediate family Daily Living Activities: Functional Status: Independent Living Arrangements: Alone Type of Residence: Private residence [address] [address] Current DME: Equipment Currently Used at Home: [...] Dialysis Services: None Living Will/Advance Directive/Power of Bitumen Plant Operator /Guardian: None Additional Comments: Patient admitted [...] ] Family [ ] Friend [ ] Computer Programming Supervisor [X] Medical records HISTORY OF PRESENT ILLNESS: [...] - 12/10/24 after having a seizure in [facility]. Some notes about concern for meningitis; [...] note, sputum culture 12/01/24 grew pseudomonas aeruginosis MDR/PROCESSING TECH. Neurosurgery was consulted and plans to take [...] tablets by mouth every 6 hours. Under [place] law, monthly prescriptions (30 days) can be refilled at 25 days and three-month prescriptions (90 days) at 80 days. Please contact the insurance company with questions if refills are denied. Patient taking differently: Take 2 tablets by mouth every 6 hours. 11/16/24 Torrie Mustafa PA atorvastatin (Lipitor) 40 MG tablet Take 1 tablet by mouth every evening. ProviderJef MD Ejuyecu-Mnbetanbgsq-Rxccdeiipu (Breztri Aerosphere) 160-9-4.8 MCG/ACT aerosol Inhale 2 [...] meals. Jef Hendrickson MD metoprolol tartrate (Lopressor) 25 MG tablet [...] to start again. ProviderJef MD nystatin (Mycostatin) 996182 UNIT/GM powder Apply on bottom 2 times [...] directed with insulin pen. 10/31/24 Sasha Nuñez, DO polyethylene glycol (Miralax) 17 g packet Take [...] not taking: Reported on 12/01/2024 11/26/24 12/10/24 Provider, MD Jef CURRENT MEDICATIONS: Current Medications[4] SOCIAL HISTORY: Social [...] Methicillin Resistant Staphylococcus aureus (MRSA) by PCR [[id number]] (Normal) Collected: 12/16/24 0750 Order Status: Completed [...] laboratory testing. Respiratory Culture and Gram Stain [[id number]] (Abnormal) Collected: 12/16/24 0847 Order Status: Completed [...] yeast Streptococcus pneumoniae and Legionella Urinary Antigen [[id number]] (Normal) Collected: 12/16/24 0839 Order Status: Completed Specimen: Urine, Clean Catch Updated: 12/16/24 0945 Legionella pneumophila serogroup 1 Antigen Result (Urine) Negative Streptococcus pneumoniae Antigen Result (Urine) Negative Multi Drug Resistance Test [[id number]] Collected: 12/16/24 0750 Order Status: Sent Specimen: Swab from Nares and Carole Rectal Updated: 12/16/24 0845 Blood Culture (Aerobic/Anaerobet Set) [[id number]] Collected: 12/16/24 0552 Order Status: Completed Specimen: Blood, Venous Updated: 12/16/24 0819 Culture Culture in lab Narrative: Low blood volume submitted, results may be compromised Blood Culture (Aerobic/Anaerobet Set) [[id number]] Collected: 12/15/24 2318 Order Status: Completed Specimen: Blood, Venous Updated: 12/16/24 0301 Culture Culture in lab Nasopharyngeal Respiratory Panel [[id number]] (Normal) Collected: 12/15/24 2319 Order Status: Completed [...] Respiratory PCR Panel is performed using the [employer] ePlex instrument. This test is FDA approved for use with Nasopharyngeal swabs only. This test is used for clinical purposes. It should not be regarded as investigational or for research. The [facility] Clinical Microbiology Laboratory is certified under the Clinical Laboratory Improvement Amendments of 1988 (CLIA-88) as qualified to perform high complexity clinical laboratory testing. SARS CoV-2/COVID-19 by PCR - Rapid [[id number]] (Normal) Collected: 12/15/24 2319 Order Status: Completed [...] A, Flu B, and RSV - Rapid [[id number]] Order Status: Canceled Specimen: Swab from Nasopharynx [...] had a respiratory culture that grew MDR PROCESSING TECH pseudomonas. She is now here with concern for postobstructive pneumonia and craniotomy surgical site infection. Blood cultures are pending. She was started on zosyn. Neurosurgery was taking her on 12/16 for a washout of her craniotomy site. PROBLEM LIST Craniotomy surgical site infection Pneumonia with history of MDR/PROCESSING TECH organism Multiple bilateral PE Small cell lung cancer with mets to the brain on chemotherapy History of craniotomy RECOMMENDATIONS: - Start vancomycin, pharmacy to dose, to cover gram positive skin pathogens likely to be involved in surgical site infection - Stop zosyn - Start cefepime 2g q8h and flagyl 500 mg TID, given history of MDR/PROCESSING TECH pseudomonas - Obtain bone/tissue/fluid cultures in the OR and send for gram stain/culture, fungal cultures, AFBcultures - Obtain repeat sputum culture - Will follow blood cultures - Monitor CBCd, CMP, and vancomycin levels on the above antibiotics Thank you for allowing us to participate in this patient's care. ID will follow. Mariah Hurley PA-C Division of Infectious Diseases Available on [employer] Chat History, assessment, and plan discussed with [...] lung cancer ([facility]) Type 2 diabetes mellitus [2] Past Surgical History: Procedure Laterality Date BRAIN SURGERY TUBAL LIGATION N/A Tubal Ligation from [facility] TYMPANOSTOMY TUBE PLACEMENT N/A Ear Surgery Eustachian Tube from [facility] [3] Allergies Allergen Reactions Cephalexin Nausea and [...] Oral TID Gordy Purvis APRN, DNP Tiotropium [place] Monohydrate (Spiriva Respimat) 2.5 MCG/ACT inhaler 2 [...] tablets by mouth every 6 hours. Under [place] law, monthly prescriptions (30 days) can be refilled at 25 days and three-month prescriptions (90 days) at 80 days. Please contact the insurance company with questions if refills are denied. (Patient taking differently: Take 2 tablets by mouth every 6 hours.) 100 tablet 0 atorvastatin (Lipitor) 40 MG tablet Take 1 tablet by mouth every evening. Jthnkle-Mfykpniamqx-Dmicfyhirx (Breztri Aerosphere) 160-9-4.8 MCG/ACT aerosol Inhale 2 [...] 399=12units max of 36units daily nystatin (Mycostatin) 505930 UNIT/GM powder Apply on bottom 2 times [...] Fibromyalgia Other * Progress Notes - Lisa LloydDO - 12/16/2024 8:48 AM EDT Non-billable rounding [...] AM. A/P: Post obstructive pneumonia, history of MDR/PROCESSING TECH organism Acute on chronic hypoxic respiratory failure [...] per protocol - will further discuss ongoing correction anticoagulation with neurosurgery and with oncology Stage [...] DM, osteoarthritis, and anxiety/depression who presents to [facility] on 12/15/2024 with worsening dyspnea and [...] from 11/29/2024 to 12/10/2024 after presenting [facility] to the ED with concern for seizure, [...] Value Units Date/Time Blood Culture (Aerobic/Anaerobet Set) [[id number]] Collected: 12/15/248 Order Status: Completed Specimen: Blood, Venous Updated: 12/16/24 0301 Culture Culture in lab Nasopharyngeal Respiratory Panel [[id number]] (Normal) Collected: 12/15/24 2319 Order Status: Completed [...] Respiratory PCR Panel is performed using the [employer] Travel[employer] instrument. This test is FDA approved for use with Nasopharyngeal swabs only. This test is used for clinical purposes. It should not be regarded as investigational or for research. The [facility] Clinical Microbiology Laboratory is certified under the Clinical Laboratory Improvement Amendments of 1988 (CLIA-88) as qualified to perform high complexity clinical laboratory testing. SARS CoV-2/COVID-19 by PCR - Rapid [[id number]] (Normal) Collected: 12/15/24 2319 Order Status: Completed Specimen: Swab from Nasopharynx Updated: 12/16/24121 SARS CoV-2/COVID-19 RNA PCR Result Not Detected [...] A, Flu B, and RSV - Rapid [[id number]] Order Status: Canceled Specimen: Swab from Nasopharynx [...] 2 DM, osteoarthritis, and anxiety/depressionwho presents to [facility] on 12/15/2024 with worsening dyspnea and [...] mg, Oral, Every 6 hours scheduled, Under [place] law, monthly prescriptions (30 days) can be refilled at 25 days and three-month prescriptions (90 days) at 80 days. Please contact the insurance company with questions if refills are denied. atorvastatin (LIPITOR) 40 mg, Every evening Gewekpe-Zqeljluedqf-Finrxcctxu (Breztri Aerosphere) 160-9-4.8 MCG/ACT aerosol 2 puffs, [...] 399=12units max of 36units daily nystatin (Mycostatin) 123431 UNIT/GM powder Apply on bottom 2 times [...] Provider Department Center 12/20/2024 10:30 AM [facility] JOSE MARTIN Vasquez 12/20/2024 11:00 AM Satnam Colvin MD [facility] 12/20/2024 12:30 PM [facility]FUSION TREATMENT [facility] 12/21/2024 2:30 PM [facility] 1 INFUSION TREATMENT [id number] [facility] 12/22/2024 2:30 PM [facility] 2 INFUSION TREATMENT [id number] [facility]end 01/19/2025 9:20 AM GS MR 2 [facility] 01/19/2025 10:45 AM Abhilash Bangura MD [facility] 03/08/2025 1:00 PM Teresita Oconnell MD [facility] Purvis APRN, DNP [1] Past Medical History: Diagnosis Date A-fib (CMS/HCC) Anxiety Brain tumor (CMS/HCC) Chemotherapy-induced nausea and vomiting 08/28/2023 COPD (chronic obstructive pulmonary disease) (CMS/HCC) Depression Heart failure Hyperlipidemia Hypertension Osteoarthritis Pneumonia Small cell lung cancer (CMS/HCC) Type 2 diabetes mellitus [2] Past Surgical History: Procedure Laterality Date BRAIN SURGERY TUBAL LIGATION N/A Tubal Ligation from [facility] TYMPANOSTOMY TUBE PLACEMENT N/A Ear Surgery Eustachian Tube from [employer] [3] Family History Problem Relation Name Age [...] MD Resident Physician, PGY-2 Department of Neurosurgery [facility] [1] No current facility-administered medications for this encounter. Current Outpatient Medications Medication Sig Dispense Refill acetaminophen (Tylenol) 325 MG tablet Take 2 tablets by mouth every 6 hours. Under [place] law, monthly prescriptions (30 days) can be refilled at 25 days and three-month prescriptions (90 days) at 80 days. Please contact the insurance company with questions if refills are denied. (Patient taking differently: Take 2 tablets by mouth every 6 hours.) 100 tablet 0 atorvastatin (Lipitor) 40 MG tablet Take 1 tablet by mouth every evening. Yovtrfh-Gzcbjjdvfyk-Yekmopuknx (Breztri Aerosphere) 160-9-4.8 MCG/ACT aerosol Inhale 2 [...] 399=12units max of 36units daily nystatin (Mycostatin) 067959 UNIT/GM powder Apply on bottom 2 times [...] and oriented to person, place, and time. [place] Coma Scale Score: 15 ED Course & [...] 12/28/24 0600 Scheduled TINA, JIMMY T Acknowledged TINAJIMMY CAMARILLO T 12/16/24 0426 Type and Screen Once [...] except Chronic Atrial Fibrillation Until discontinued Acknowledged GORDY PURVIS 12/16/24 0450 Do Not Give Nicotine Replacement Until discontinued Acknowledged GORDY PURVIS 12/16/24 0450 Continuous Pulse Oximetry (Needs additional Telemetry Order too) Until discontinued Acknowledged GORDY PURVIS 12/16/24 0450 Full code Continuous Acknowledged KENTONUTEDJOSE GORDY N 12/16/24 0450 Mobility Orders Until discontinued Acknowledged HYUN GORDY N 12/16/24 0450 Notify physician (specify parameters) Until discontinued Acknowledged HYUN GORDY N 12/16/24 0450 Insert peripheral IV Once Placed in And Linked Group Acknowledged HYUN GORDY Imelda 12/16/24 0450 Saline lock IV Once Placed in And Linked Group Acknowledged KENTONUDONNYBEJOSE GORDY N 12/16/24 0450 Multi Drug Resistance Test Once Acknowledged HYUN GORDY Imelda 12/16/24 0450 Admit to inpatient Once Acknowledged HYUN GORDY Imelda 12/16/24 0436 Sedimentation Rate, Automated STAT Collected DOMINGO WALDROP 12/16/24 0436 C-reactive protein STAT Collected DOMINGO WALDROP 12/16/24 0436 Blood Culture (Aerobic/Anaerobet Set) Once Collected DOMINGO WALDROP 12/16/24 0426 Magnesium, Plasma STAT Collected DOMINGO WALDROP 12/16/24 0426 Basic Metabolic Panel, Plasma STAT Collected DOMINGO WALDROP 12/16/24 0426 CBC W/O Differential STAT Collected DOMINGO WALDROP 12/16/24 0426 Prothrombin Time/INR STAT Acknowledged DOMINGO WALDROP 12/16/24 0426 APTT STAT Acknowledged DOMINGO WALDROP 12/16/24 0426 Phosphorus, Plasma STAT Collected DOMINGO WALDROP 12/16/24 0424 ECG Adult Once Preliminary result HYUN GORDY Imelda 12/16/24 0426 MR Head w and wo [...] Baseline Once timed Final result JIMMY JONES Leticia 12/16/24 0303 CBC W/O Differential - Baseline Once Comments: If not done in the past 24 hours. Final result JIMMY JONES 12/16/24 0303 Protime-INR Once Comments: If no PT done in the last 24 hours. Final result JIMMY JONES 12/16/24 0204 Consult to Neurosurgery Once Specialty: Neurosurgery Provider: (Not yet assigned) Acknowledged JIMMY JONES Leticia 12/15/24 2354 Troponin T, High Sensitivity, 2 Hour, Plasma PROCEDURE ONCE Final result JIMMY JONES 12/16/24 0030 EKG now - STAT (adult) Once Preliminary result AILYN CABRERA 12/15/24 2343 Initiate contact isolation Continuous Comments: [...] Pulmonary Embolism Once Final result JIMMY JONES Leticia 12/15/242136 Blood Culture (Aerobic/Anaerobet Set) STAT Preliminary result JIMMY JONES Leticia 12/15/242136 Once Canceled TINA JIMMY T 12/15/242136 C-reactive protein STAT Final result TINAJIMMY CAMARILLO Letiica 12/15/242136 Sed rate, automated STAT Final result TINAJIMMY CAMARILLO Leticia 12/15/242136 STAT Canceled JIMMY JONES 12/15/242136 Nasopharyngeal [...] JONES 12/15/242020 ECG Adult Once Preliminary result JÚINOR CABRERAMUSHTAQ Hoang 12/16/24 0303 Anti Xa Level by Unfractionated [...] of 95beats per minute, left axis, no ME prolongation, narrow QRS, no QTC prolongation. There is incomplete right bundle-branch block morphology. No ST elevation or depression. There are intermittent PACs. Initial EKG was personally interpreted by me and demonstrated normal sinus rhythm with a rate of 95beats per minute, left axis, no ME prolongation, narrow QRS, no QTC prolongation. There [...] None Disposition Admit Admitting/Attending Physician: DESI POP [[id number]] Provider Care Team: LEONA YU 6 [[id number]] [...] SURGERY TUBAL LIGATION N/A Tubal Ligation from [facility] TYMPANOSTOMY TUBE PLACEMENT N/A Ear Surgery Eustachian Tube from [facility] [3] Family History Problem Relation Name Age [...] [address] [facility], [address]nd [place] [address] 02/21/2025 9:20 AM EDT Office Visit [facility] [address] [facility], 2nd [place] [address] Satnam Colvin MD [address] [facility] [address] [place] [address] 02/21/2025 11:00 AM EDT Appointment [facility] [address] [place] [address] 02/22/2025 2:30 PM EDT Appointment [facility] [address] [place] [phone] 02/23/2025 3:30 PM EDT Appointment [facility] [address] [place] [address] 03/08/2025 1:00 PM EDT Office Visit [facility] [address] [facility]. [address] [place] [address] Teresita Oconnell MD [address] [place] [phone] 03/10/2025 2:20 PM EDT Appointment [facility] [address] [place] [address] 03/10/2025 3:45 PM EDT Appointment [facility] Radiology [address], [address] [place] [address] 03/14/2025 11:00 AM EDT Office Visit [facility] [address] [facility], [address]nd [place] [phone] Satnam Colvin MD [address] [facility] N[address] [place] [address] documented as of this encounter Procedures Procedure [...] Incisional infection FUNGAL CULTURE, ROUTINE Routine 12/17/19 25 1:58 PM EDT Incisional infection ANAEROBIC CULTURE Routine 12/16/2024 1:5 8 PM EDT Incisional infection ME DEBRIDEMENT, SKIN, SUB-Q TISSUE,MUSCLE,=<20 SQ CM 12/16/2024 [...] POCT glucose meter (12/22/2024 12:43 PM EDT) POCT Glucose 189(H) 74 - [...] for testing. Comment 12/22/2024 12:45 PM EDT HEALTHCARE LAB Guard Captain ID Marciano Mai 12/22/2024 12:45 PM EDT [facility] Device ID [id number] 12/22/2024 12:45 PM EDT [facility] Specimen Type POC Capillary 12/22/2024 12:45 PM EDT [facility]ALTH[facility]ARE LAB Blood Capillary blood specimen / Unknown 12/22/2024 12:43 PM EDT 12/22/2024 12:45 PM EDT us Yosi Richmond MD LAB POINT OF CARE T EST DOCKED DEVICE UNSOLICITED RESULTS Final Result [facility] [address] [place] [phone] * (ABNORMAL) POCT glucose meter (12/22/2024 8:11 AM EDT) POCT Glucose 117(H) 74 - 99 mg/dL [...] Comment 12/22/2024 8:13 AM EDT HEALTHCARE LAB Guard Captain ID Marciano Mai 12/22/2024 8:13 AM EDT HEALTHCARE LAB Device ID [id number] 12/22/2024 8:13 AM EDT HEALTHCARE LAB Specimen Type POC Capillary 12/22/2024 8:13 AM EDT [facility] Blood Capillary blood specimen / Unknown 12/22/2024 8:11 AM EDT 12/22/2024 8:13 AM EDT Yosi Richmond MD LAB POINT OF CARE T EST DOCKED DEVICE UNSOLICITED RESULTS Final Result Performing Organization Address [facility] Co de Phone Number [facility] [address] [place] [address] * (ABNORMAL) Magnesium (12/22/2024 12:26 AM EDT) Pathologist [facility] Magnesium, Plasma 1.1(L) 1.9 - 2.4 mg/dL 12/22/2024 1:04 AM EDT [facility] Blood Venous blood specimen / Unknown Venipuncture / Unknown 12/22/2024 12:26 AM EDT 12/22/2024 12:35 AM EDT Yosi Richmond MD LAB BLOOD ORDERABLES Final Result [facility] [address] [place] [address] * (ABNORMAL) CBC W/O Differential (12/22/2024 12:26 AM EDT) WBC Count 5.98 3.70 - 10.30 10*3/uL LAB HEMATOLOGY METHOD 12/22/2024 12:43 AM EDT [facility] RBC Count 2.50(L) 3.90 - 5.20 10*6/uL LAB HEMATOLOGY METHOD 12/22/2024 12:43 AM EDT [facility] HGB 7.3(L) 11.2 - 15.7 g/dL LAB HEMATOLOGY METHOD 12/22/2024 12:43 AM EDT [facility] HCT 23.7(L) 34.0 - 45.0 % LAB HEMATOLOGY METHOD 12/22/2024 12:43 AM EDT [facility] Platelet Count 152(L) 155 - 369 10*3/uL LAB HEMATOLOGY METHOD 12/22/2024 12:43 AM EDT [facility] MCV 95 79 - 98 fL LAB HEMATOLOGY METHOD 12/22/2024 12:43 AM EDT [facility] MCH 29.2 26.0 - 32.0 pg LAB HEMATOLOGY METHOD 12/22/2024 12:43 AM EDT [facility] MCHC 30.8 30.7 - 35.5 g/dL LAB HEMATOLOGY METHOD 12/22/2024 12:43 AM EDT [facility] RDW 19.8(H) 11.5 - 14.5 % LAB HEMATOLOGY METHOD 12/22/2024 12:43 AM EDT [facility] MPV 9.7 8.8 - 12.5 fL LAB HEMATOLOGY METHOD 12/22/2024 12:43 AM EDT [facility] nRBC 0.0 <=0.0 per 100 WBCs LAB HEMATOLOGY METHOD 12/22/2024 12:43 AM EDT [facility] Blood Venous blood specimen / Unknown Venipuncture / Unknown 12/22/2024 12:26 AM EDT 12/22/2024 12:36 AM EDT us Yosi Richmond MD LAB BLOOD ORDERABLES Final Result [facility] [address] [place] [address] * (ABNORMAL) Basic metabolic panel (12/22/2024 12:26 AM EDT) [facility] Glucose, Plasma 160(H) 74 - 99 mg/dL 12/22/2024 1:04 AM EDT [facility] BUN, Plasma 7(L) 8 - 23 mg/dL 12/22/2024 1:04 AM EDT [facility] Creatinine, Plasma 0.96 0.60 - 1.10 mg/dL 12/22/2024 1:04 AM EDT [facility] BUN/Creatinine Ratio 7 12/22/2024 1:04 AM EDT [facility] Sodium, Plasma 144 136 - 145 mmol/L 12/22/2024 1:04 AM EDT [facility] Potassium, Plasma 3.0(L) 3.6 - 4.9 mmol/L 12/22/2024 1:04 AM EDT [facility] Chloride, Plasma 110(H) 97 - 107 mmol/L 12/22/2024 1:04 AM EDT [facility] CO2, Plasma 24 22 - 29 mmol/L 12/22/2024 1:04 AM EDT [facility] Anion Gap 10 6 - 16 mmol/L 12/22/2024 1:04 AM EDT [facility] Total Calcium, Plasma 8.3(L) 8.9 - 10.2 mg/dL 12/22/2024 1:04 AM EDT [facility] eGFRcr 66.2 mL/min/1.7 3m*2 12/22/2024 1:04 AM EDT [facility] Comment:Reported eGFRcr in m L/min/1.73m2 is based the CKD-EPI 2020 equation that does not use a race coefficient. Blood Venous blood specimen / Unknown Venipuncture / Unknown 12/22/2024 12:26 AM EDT 12/22/2024 12:35 AM EDT us Yosi Richmond MD LAB BLOOD ORDERABLES Final Result [facility] [address] [place] [address] * (ABNORMAL) POCT glucose meter (12/21/2024 9:17 PM EDT) POCT Glucose 180(H) 74 - 99 mg/dL 12/21/2024 9:18 PM EDT [facility] Comment:Accuracy of a glucos e [...] Comment 12/21/2024 9:18 PM EDT HEALTHCARE LAB Guard Captain ID Anh Rankin 12/21/2024 9:18 PM EDT HEALTHCARE LAB Device ID [id number] 12/21/2024 9:18 PM EDT [facility]ARE LAB Specimen Type POC Capillary 12/21/2024 9:18 PM EDT [facility] Blood Capillary blood specimen / Unknown 12/21/2024 9:17 PM EDT 12/21/2024 9:18 PM EDT us Yosi Richmond MD LAB POINT OF CARE T EST DOCKED DEVICE UNSOLICITED RESULTS Final Result Performing Organization Address City/State/[facility] Co de Phone Number [facility] [address] [place] [address] * (ABNORMAL) POCT glucose meter (12/21/2024 5:44 PM EDT) [facility] Signature POCT Glucose 142(H) 74 - 99 mg/dL 12/21/2024 5:46 PM EDT [facility] Comment:Accuracy of a [...] Comment 12/21/2024 5:46 PM EDT HEALTHCARE LAB Guard Captain ID Marciano Mai 12/21/2024 5:46 PM EDT HEALTHCARE LAB Device ID [id number] 12/21/2024 5:46 PM EDT [facility]ALTH[facility]ARE LAB Specimen Type POC Capillary 12/21/2024 5:46 PM EDT [facility] Blood Capillary blood specimen / Unknown 12/21/2024 5:44 PM EDT 12/21/2024 5:46 PM EDT us Yosi Richmond MD LAB POINT OF CARE T EST DOCKED DEVICE UNSOLICITED RESULTS Final Result [facility] [address] [place] [address] * (ABNORMAL) POCT glucose meter (12/21/2024 12:11 PM EDT) POCT Glucose 151(H) 74 - 99 mg/dL 12/21/2024 12:14 PM EDT [facility] Comment:Accuracy of a [...] for testing. Comment 12/21/2024 12:14 PM EDT [facility] Guard Captain ID Emily Vera 025 12:14 PM EDT [facility] Device ID [id number] 12/21/2024 12:14 PM EDT [facility] Specimen Type POC Capillary 12/21/2024 12:14 PM EDT [facility] Blood Capillary blood specimen / Unknown 12/21/2024 12:11 PM EDT 12/21/2024 12:14 PM EDT Yosi Richmond MD LAB POINT OF CARE T EST DOCKED DEVICE UNSOLICITED RESULTS Final Result [facility] [address] [place] [address] * (ABNORMAL) POCT glucose meter (12/21/2024 8:04 [...] Comment 12/21/2024 8:05 AM EDT HEALTHCARE LAB Guard Captain ID Marciano Mai 12/21/2024 8:05 AM EDT HEALTHCARE LAB Device ID [id number] 12/21/2024 8:05 AM EDT HEALTHCARE LAB Specimen Type POC Capillary 12/21/2024 8:05 AM EDT [facility] Blood Capillary blood specimen / Unknown 12/21/2024 8:04 AM EDT 12/21/2024 8:05 AM EDT us Yosi Richmond MD LAB POINT OF CARE T EST DOCKED DEVICE UNSOLICITED RESULTS Final Result Performing Organization Address City/[facility] Co de Phone Number [facility] [address] [place] [address] * Anti Xa Level by Unfractionated Heparin - Heparin Drip Titration (12/21/2024 7:30 AM EDT) Anti Xa Level Unfractionated Heparin 0.56 <1.00 IU/mL LAB COAGULATION METHOD 12/21/2024 8:08 AM EDT [facility] Blood Venous blood specimen / Unknown Venipuncture / Unknown 12/21/2024 7:30 AM EDT 12/21/2024 7:38 AM EDT Narrative [facility] - 12/21/2024 8:08 AM EDT Therapeutic Range: UFH Full Dose and ACS/HI protocols*: 0.30 - 0.70 IU/mL UFH Low Dose protocol*: 0.25 - 0.50 IU/mL UFH prophylaxis: Not established us Ailyn Cabrera MD LAB BLOOD ORDERABLES Final Re sult [facility] [address] [place] [address] * (ABNORMAL) CBC W/O Differential - HIT surveillance (12/21/2024 1:04 AM EDT) WBC Count 5.76 3.70 - 10.30 10*3/uL LAB HEMATOLOGY METHOD 12/21/2024 1:20 AM EDT [facility] RBC Count 2.41(L) 3.90 - 5.20 10*6/uL LAB HEMATOLOGY METHOD 12/21/2024 1:20 AM EDT [facility] HGB 7.3(L) 11.2 - 15.7 g/dL LAB HEMATOLOGY METHOD 12/21/2024 1:20 AM EDT [facility] HCT 23.2(L) 34.0 - 45.0 % LAB HEMATOLOGY METHOD 12/21/2024 1:20 AM EDT [facility] Platelet Count 149(L) 155 - 369 10*3/uL LAB HEMATOLOGY METHOD 12/21/2024 1:20 AM EDT [facility] MCV 96 79 - 98 fL LAB HEMATOLOGY METHOD 12/21/2024 1:20 AM EDT [facility] MCH 30.3 26.0 - 32.0 pg LAB HEMATOLOGY METHOD 12/21/2024 1:20 AM EDT [facility] MCHC 31.5 30.7 - 35.5 g/dL LAB HEMATOLOGY METHOD 12/21/2024 1:20 AM EDT [facility] RDW 19.4(H) 11.5 - 14.5 % LAB HEMATOLOGY METHOD 12/21/2024 1:20 AM EDT [facility] MPV 9.4 8.8 - 12.5 fL LAB HEMATOLOGY METHOD 12/21/2024 1:20 AM EDT [facility] nRBC 0.0 <=0.0 per 100 WBCs LAB HEMATOLOGY METHOD 12/21/2024 1:20 AM EDT [facility] Blood Venous blood specimen / Unknown Venipuncture / Unknown 12/21/2024 1:04 AM EDT 12/21/2024 1:13 AM EDT us Ailyn Cabrera MD LAB BLOOD ORDERABLES Final Re sult [facility] [address] [place] [address] * Anti Xa Level by Unfractionated Heparin - Heparin Drip Titration (12/21/2024 1:04 AM EDT) Anti Xa Level Unfractionated Heparin 0.23 <1.00 IU/mL LAB COAGULATION METHOD 12/21/2024 1:34 AM EDT [facility] Blood Venous blood specimen / Unknown Venipuncture / Unknown 12/21/2024 1:04 AM EDT 12/21/2024 1:13 AM EDT Narrative [facility] - 12/21/2024 1:34 AM EDT Therapeutic Range: UFH Full Dose and ACS/HI protocols*: 0.30 - 0.70 IU/mL UFH Low Dose protocol*: 0.25 - 0.50 IU/mL UFH prophylaxis: Not established us Ailyn Cabrera MD LAB BLOOD ORDERABLES Final Re sult Performing Organization Address City/[facility]/ZIP Co de Phone Number [facility] [address] [place] [address] * (ABNORMAL) POCT glucose meter (12/20/2024 7:55 [...] for testing. Comment 12/20/2024 7:57 PM EDT HEALTHCARE LAB Guard Captain ID Hany Deutsch 12/20/2024 7:57 PM EDT HEALTHCARE LAB Device ID [id number] 12/20/2024 7:57 PM EDT [facility]ALTH[facility]ARE LAB Specimen Type POC Capillary 12/20/2024 7:57 PM EDT [facility] Blood Capillary blood specimen / Unknown 12/20/2024 7:55 PM EDT 12/20/2024 7:57 PM EDT us Yosi Richmond MD LAB POINT OF CARE T EST DOCKED DEVICE UNSOLICITED RESULTS Final Result Performing Organization Address City/[facility]/ZIP Co de Phone Number [facility] [address] [place] [address] * (ABNORMAL) POCT glucose meter (12/20/2024 5:12 PM EDT) [facility] POCT Glucose 234(H) 74 - 99 mg/dL [...] Comment 12/20/2024 5:14 PM EDT HEALTHCARE LAB Guard Captain ID Daphnie Perez 12/21/19 5:14 PM EDT HEALTHCARE LAB Device ID [id number] 12/20/2024 5:14 PM EDT [facility]ALTH[facility]ARE LAB Specimen Type POC Capillary 12/20/2024 5:14 PM EDT [facility] Blood Capillary blood specimen / Unknown 12/20/2024 5:12 PM EDT 12/20/2024 5:14 PM EDT us Yosi Richmond MD LAB POINT OF CARE T EST DOCKED DEVICE UNSOLICITED RESULTS Final Result Performing Organization Address City/State/[facility] Co de Phone Number [facility] [address] [place] [address] * (ABNORMAL) POCT glucose meter (12/20/2024 12:47 PM EDT) [facility] POCT Glucose 144(H) 74 - 99 mg/dL [...] for testing. Comment 12/20/2024 12:48 PM EDT [facility] Guard Captain ID Marciano Mai 12/20/2024 12:48 PM EDT HEALTHCARE LAB Device ID [id number] 12/20/2024 12:48 PM EDT [facility]ALTH[facility]ARE LAB Specimen Type POC Capillary 12/20/2024 12:48 PM EDT [facility] Blood Capillary blood specimen / Unknown 12/20/2024 12:47 PM EDT 12/20/2024 12:48 PM EDT Yosi Richmond MD LAB POINT OF CARE T EST DOCKED DEVICE UNSOLICITED RESULTS Final Result Performing Organization Address City/[facility]/ZIP Co de Phone Number [facility] [address] [place] [address] * (ABNORMAL) POCT glucose meter (12/20/2024 7:46 AM EDT) POCT Glucose 130(H) 74 - 99 mg/dL 12/20/2024 7:47 AM EDT [facility] Comment:Accuracy of a glucos e result [...] for testing. Comment 12/20/2024 7:47 AM EDT [facility] Guard Captain ID Marciano Mai 12/20/2024 7:47 AM EDT [facility] Device ID [id number] 12/20/2024 7:47 AM EDT [facility] Specimen Type POC Capillary 12/20/2024 7:47 AM EDT [facility] Blood Capillary blood specimen / Unknown 12/20/2024 7:46 AM EDT 12/20/2024 7:47 AM EDT Yosi Richmond MD LAB POINT OF CARE T EST DOCKED DEVICE UNSOLICITED RESULTS Final Result [facility] [address] [place] [address] * Anti Xa Level by Unfractionated Heparin - Heparin Drip Titration (12/20/2024 2:20 AM EDT) Anti Xa Level Unfractionated Heparin 0.29 <1.00 IU/mL LAB COAGULATION METHOD 12/20/2024 2:52 AM EDT [facility] Blood Venous blood specimen / Unknown Venipuncture / Unknown 12/20/2024 2:20 AM EDT 12/20/2024 2:31 AM EDT Narrative [facility] - 12/20/2024 2:52 AM EDT Therapeutic Range: UFH Full Dose and ACS/HI protocols*: 0.30 - 0.70 IU/mL UFH Low Dose protocol*: 0.25 - 0.50 IU/mL UFH prophylaxis: Not established us Ailyn Cabrera MD LAB BLOOD ORDERABLES Final Re sult [facility] [address] [place] [address] * (ABNORMAL) CBC W/O Differential - HIT surveillance (12/20/2024 2:20 AM EDT) WBC Count 5.86 3.70 - 10.30 10*3/uL LAB HEMATOLOGY METHOD 12/20/2024 2:49 AM EDT [facility] RBC Count 2.42(L) 3.90 - 5.20 10*6/uL LAB HEMATOLOGY METHOD 12/20/2024 2:49 AM EDT [facility] HGB 7.3(L) 11.2 - 15.7 g/dL LAB HEMATOLOGY METHOD 12/20/2024 2:49 AM EDT [facility] HCT 23.4(L) 34.0 - 45.0 % LAB HEMATOLOGY METHOD 12/20/2024 2:49 AM EDT [facility] Platelet Count 166 155 - 369 10*3/uL LAB HEMATOLOGY METHOD 12/20/2024 2:49 AM EDT [facility] MCV 97 79 - 98 fL LAB HEMATOLOGY METHOD 12/20/2024 2:49 AM EDT [facility] MCH 30.2 26.0 - 32.0 pg LAB HEMATOLOGY METHOD 12/20/2024 2:49 AM EDT [facility] MCHC 31.2 30.7 - 35.5 g/dL LAB HEMATOLOGY METHOD 12/20/2024 2:49 AM EDT [facility] RDW 19.6(H) 11.5 - 14.5 % LAB HEMATOLOGY METHOD 12/20/2024 2:49 AM EDT [facility] MPV 9.9 8.8 - 12.5 fL LAB HEMATOLOGY METHOD 12/20/2024 2:49 AM EDT [facility] nRBC 0.0 <=0.0 per 100 WBCs LAB HEMATOLOGY METHOD 12/20/2024 2:49 AM EDT [facility] Blood Venous blood specimen / Unknown Venipuncture / Unknown 12/20/2024 2:20 AM EDT 12/20/2024 2:31 AM EDT us Ailyn Cabrera MD LAB BLOOD ORDERABLES Final Re sult Performing Organization Address City/[facility]/ZIP Co de Phone Number [facility] [address] [place] [address] * Phosphorus, Plasma (12/20/2024 2:20 AM EDT) Phosphorus, Plasma 3.3 2.5 - 4.5 mg/dL 12/20/2024 3:00 AM EDT [facility] Blood Venous blood specimen / Unknown Venipuncture / Unknown 12/20/2024 2:20 AM EDT 12/20/2024 2:31 AM EDT Lisa Lloyd DO LAB BLOOD ORDERABLES Final Resu lt Performing Organization Address [facility]/ZIP Co de Phone Number [facility] [address] [place] [address] * (ABNORMAL) Magnesium, Plasma (12/20/2024 2:20 AM EDT) Magnesium, Plasma 1.6(L) 1.9 - 2.4 mg/dL 12/20/2024 3:00 AM EDT [facility] Blood Venous blood specimen / Unknown Venipuncture / Unknown 12/20/2024 2:20 AM EDT 12/20/2024 2:31 AM EDT Lisa Lloyd DO LAB BLOOD ORDERABLES Final Resu lt Performing Organization Address City/[facility]/ZIP Co de Phone Number [facility] [address] [place] [phone] * (ABNORMAL) Comprehensive Metabolic Panel, Plasma (12/20/2024 2:20 AM EDT) Glucose, Plasma 120(H) 74 - 99 mg/dL 12/20/2024 3:00 AM EDT [facility] BUN, Plasma 7(L) 8 - 23 mg/dL 12/20/2024 3:00 AM EDT [facility] Creatinine, Plasma 0.90 0.60 - 1.10 mg/dL 12/20/2024 3:00 AM EDT [facility] BUN/Creatinine Ratio 8 12/20/2024 3:00 AM EDT [facility] Sodium, Plasma 145 136 - 145 mmol/L 12/20/2024 3:00 AM EDT [facility] Potassium, Plasma 3.4(L) 3.6 - 4.9 mmol/L 12/20/2024 3:00 AM EDT [facility] Chloride, Plasma 112(H) 97 - 107 mmol/L 12/20/2024 3:00 AM EDT [facility] CO2, Plasma 23 22 - 29 mmol/L 12/20/2024 3:00 AM EDT [facility] Anion Gap 10 6 - 16 mmol/L 12/20/2024 3:00 AM EDT [facility] Total Calcium, Plasma 8.5(L) 8.9 - 10.2 mg/dL 12/20/2024 3:00 AM EDT [facility] Total Protein 6.0(L) 6.3 - 7.9 g/dL 12/20/2024 3:00 AM EDT [facility] Albumin, Plasma 2.7(L) 3.5 - 5.2 g/dL 12/20/2024 3:00 AM EDT [facility] AST, Plasma 17 10 - 35 U/L 12/20/2024 3:00 AM EDT [facility] ALT, Plasma 6(L) 10 - 35 U/L 12/20/2024 3:00 AM EDT [facility] Alkaline Phosphatase, Plasma 67 46 - 142 U/L 12/20/2024 3:00 AM EDT [facility] Total Bilirubin, Plasma 0.3 0.2 - 1.1 mg/dL 12/20/2024 3:00 AM EDT [facility] eGFRcr 71.5 mL/min/1.7 3m*2 12/20/2024 3:00 AM EDT [facility] Comment:Reported eGFRcr in m L/min/1.73m2 is based the CKD-EPI 2020 equation that does not use a race coefficient. Blood Venous blood specimen / Unknown Venipuncture / Unknown 12/20/2024 2:20 AM EDT 12/20/2024 2:31 AM EDT us Lisa Lloyd DO LAB BLOOD ORDERABLES Final Resu lt Performing Organization Address [facility] Co de Phone Number [facility] [address] [place] [address] * Anti Xa Level by Unfractionated Heparin - Heparin Drip Titration (12/19/2024 10:29 PM EDT) Anti Xa Level Unfractionated Heparin 0.39 <1.00 IU/mL LAB COAGULATION METHOD 12/19/2024 11:32 PM EDT [facility] Blood Venous blood specimen / Unknown Venipuncture / Unknown 12/19/2024 10:29 PM EDT 12/19/2024 10:54 PM EDT Narrative [facility] - 12/19/2024 11:32 PM EDT Therapeutic Range: UFH Full Dose and ACS/HI protocols*: 0.30 - 0.70 IU/mL UFH Low Dose protocol*: 0.25 - 0.50 IU/mL UFH prophylaxis: Not established us Ailyn Cabrera MD LAB BLOOD ORDERABLES Final Re sult Performing Organization Address [facility]/ZIP Co de Phone Number [facility] [address] [place] [address] * (ABNORMAL) POCT glucose meter (12/19/2024 8:18 PM EDT) POCT Glucose 180(H) 74 - [...] 12/19/2024 8:20 PM EDT [facility] Guard Captain ID Sujatha Medrano 12/19/2024 8:20 PM EDT [facility] Device ID [id number] 12/19/2024 8:20 PM EDT [facility] Specimen Type POC Capillary 12/19/2024 8:20 PM EDT [facility] Blood Capillary blood specimen / Unknown 12/19/2024 8:18 PM EDT 12/19/2024 8:20 PM EDT Lisa Lloyd DO LAB POINT OF CARE TE ST DOCKED DEVICE UNSOLICITED RESULTS Final Result Performing Organization Address City/State/[facility] Co de Phone Number [facility] [address] [place] [address] * (ABNORMAL) POCT glucose meter (12/19/2024 5:09 PM EDT) [facility] POCT Glucose 118(H) 74 - 99 mg/dL [...] 12/19/2024 5:10 PM EDT [facility] Guard Captain ID Marciano Mai 12/19/2024 5:10 PM EDT [facility] Device ID [id number] 12/19/2024 5:10 PM EDT [facility] Specimen Type POC Capillary 12/19/2024 5:10 PM EDT [facility] Blood Capillary blood specimen / Unknown 12/19/2024 5:09 PM EDT 12/19/2024 5:10 PM EDT us Lisa Lloyd DO LAB POINT OF CARE TE ST DOCKED DEVICE UNSOLICITED RESULTS Final Result Performing Organization Address [facility] Co de Phone Number [facility] [address] [place] [address] * Anti Xa Level by Unfractionated Heparin - Heparin Drip Titration (12/19/2024 3:33 PM EDT) Anti Xa Level Unfractionated Heparin <0.11 <1.00 IU/mL LAB COAGULATION METHOD 12/19/2024 4:24 PM EDT [facility] Blood Venous blood specimen / Unknown Venipuncture / Unknown 12/19/2024 3:33 PM EDT 12/19/2024 4:05 PM EDT Narrative [facility] - 12/19/2024 4:24 PM EDT Therapeutic Range: UFH Full Dose and ACS/HI protocols*: 0.30 - 0.70 IU/mL UFH Low Dose protocol*: 0.25 - 0.50 IU/mL UFH prophylaxis: Not established Ailyn Cabrera MD LAB BLOOD ORDERABLES Final Re sult Performing Organization Address City/[facility] Co de Phone Number [facility] [address] [place] [address] * (ABNORMAL) POCT glucose meter (12/19/2024 11:58 AM EDT) POCT Glucose 129(H) 74 - 99 mg/dL 12/19/2024 11:59 AM EDT [facility] Comment:Accuracy of [...] 12/19/2024 11:59 AM EDT [facility] Guard Captain ID Marciano Mai 12/19/2024 11:59 AM EDT [facility] Device ID [id number] 12/19/2024 11:59 AM EDT [facility] Specimen Type POC Capillary 12/19/2024 11:59 AM EDT [facility] Blood Capillary blood specimen / Unknown 12/19/2024 11:58 AM EDT 12/19/2024 11:59 AM EDT Lisa Lloyd [facility]ALP LAB POINT OF CARE TE ST DOCKED DEVICE UNSOLICITED RESULTS Final Result [facility] [address] [place] [address] * (ABNORMAL) POCT glucose meter (12/19/2024 8:09 AM EDT) Pathologist [facility] POCT Glucose 130(H) 74 - 99 mg/dL 12/19/2024 8:11 AM EDT [facility] Comment:Accuracy of a glucos e result [...] for testing. Comment 12/19/2024 8:11 AM EDT [facility] Guard Captain ID Marciano Mai 12/19/2024 8:11 AM EDT [facility] Device ID [id number] 12/19/2024 8:11 AM EDT [facility] Specimen Type POC Capillary 12/19/2024 8:11 AM EDT [facility] Blood Capillary blood specimen / Unknown 12/19/2024 8:09 AM EDT 12/19/2024 8:11 AM EDT Lisa Lloyd [facility] LAB POINT OF CARE TE ST DOCKED DEVICE UNSOLICITED RESULTS Final Result [facility] [address] [place] [address] * (ABNORMAL) Anti Xa Level by Unfractionated Heparin - Heparin Drip Titration (12/19/2024 6:19 AM EDT) Pathologist [facility] Anti Xa Level Unfractionated Heparin >1.10(HH ) <1.00 IU/mL LAB COAGULATION METHOD 12/19/2024 6:48 AM EDT [facility] Blood Venous blood specimen / Unknown Venipuncture / Unknown 12/19/2024 6:19 AM EDT 12/19/2024 6:28 AM EDT Narrative [facility] - 12/19/2024 6:48 AM EDT Therapeutic Range: UFH Full Dose and ACS/HI protocols*: 0.30 - 0.70 IU/mL UFH Low Dose protocol*: 0.25 - 0.50 IU/mL UFH prophylaxis: Not established us Ailyn Cabrera MD LAB BLOOD ORDERABLES Final Re sult Performing Organization Address City/[facility]/ZIP Co de Phone Number [facility] [address] [place] [address] * (ABNORMAL) Magnesium, Plasma (12/19/2024 6:19 AM EDT) Magnesium, Plasma 1.5(L) 1.9 - 2.4 mg/dL 12/19/2024 6:50 AM EDT [facility] Blood Venous blood specimen / Unknown Venipuncture / Unknown 12/19/2024 6:19 AM EDT 12/19/2024 6:28 AM EDT us Lisa Lloyd DO LAB BLOOD ORDERABLES Final Resu lt Performing Organization Address [facility]/ZIP Co de Phone Number [facility] [address] [place] [address] * (ABNORMAL) CBC W/O Differential - HIT surveillance (12/19/2024 12:25 AM EDT) WBC Count 8.55 3.70 - 10.30 10*3/uL LAB HEMATOLOGY METHOD 12/19/2024 1:04 AM EDT [facility] RBC Count 2.73(L) 3.90 - 5.20 10*6/uL LAB HEMATOLOGY METHOD 12/19/2024 1:04 AM EDT [facility] HGB 8.0(L) 11.2 - 15.7 g/dL LAB HEMATOLOGY METHOD 12/19/2024 1:04 AM EDT [facility] HCT 25.9(L) 34.0 - 45.0 % LAB HEMATOLOGY METHOD 12/19/2024 1:04 AM EDT [facility] Platelet Count 204 155 - 369 10*3/uL LAB HEMATOLOGY METHOD 12/19/2024 1:04 AM EDT [facility] MCV 95 79 - 98 fL LAB HEMATOLOGY METHOD 12/19/2024 1:04 AM EDT [facility] MCH 29.3 26.0 - 32.0 pg LAB HEMATOLOGY METHOD 12/19/2024 1:04 AM EDT [facility] MCHC 30.9 30.7 - 35.5 g/dL LAB HEMATOLOGY METHOD 12/19/2024 1:04 AM EDT [facility] RDW 19.9(H) 11.5 - 14.5 % LAB HEMATOLOGY METHOD 12/19/2024 1:04 AM EDT [facility] MPV 9.7 8.8 - 12.5 fL LAB HEMATOLOGY METHOD 12/19/2024 1:04 AM EDT [facility] nRBC 0.0 <=0.0 per 100 WBCs LAB HEMATOLOGY METHOD 12/19/2024 1:04 AM EDT [facility] Blood Venous blood specimen / Unknown Venipuncture / Unknown 12/19/2024 12:25 AM EDT 12/19/2024 12:44 AM EDT us Ailyn Cabrera MD LAB BLOOD ORDERABLES Final Re sult [facility] [address] [place] [address] * (ABNORMAL) N-Terminal Probnp (12/19/2024 12:25 AM EDT) N-Terminal, PROBNP, Plasma 2,653(H) 0 - 899 pg/mL 12/19/2024 1:24 AM EDT [facility] Blood Venous blood specimen / Unknown Venipuncture / Unknown 12/19/2024 12:25 AM EDT 12/19/2024 12:45 AM EDT us Lisa Lloyd DO LAB BLOOD ORDERABLES Final Resu lt Performing Organization Address City/[facility]/ZIP Co de Phone Number [facility] [address] [place] [address] * TSH Reflex FT4 (12/19/2024 12:25 AM EDT) Thyroid Stimulating Hormone, Plasma 3.21 0.40 - 4.20 uIU/mL 12/19/2024 1:24 AM EDT [facility] Blood Venous blood specimen / Unknown Venipuncture / Unknown 12/19/2024 12:25 AM EDT 12/19/2024 12:45 AM EDT Lisa Lloyd DO LAB BLOOD ORDERABLES Final Resu lt Performing Organization Address [facility]/[place] [address] * Phosphorus, Plasma (12/19/2024 12:25 AM EDT) Phosphorus, Plasma 3.4 2.5 - 4.5 mg/dL 12/19/2024 1:24 AM EDT [facility] Blood Venous blood specimen / Unknown Venipuncture / Unknown 12/19/2024 12:25 AM EDT 12/19/2024 12:45 AM EDT Lisa Lloyd DO LAB BLOOD ORDERABLES Final Resu lt Performing Organization Address City/[facility]/ZIP Co de Phone Number [facility] [address] [place] [address] * (ABNORMAL) Magnesium, Plasma (12/19/2024 12:25 AM EDT) Magnesium, Plasma 1.7(L) 1.9 - 2.4 mg/dL 12/19/2024 1:24 AM EDT [facility] Blood Venous blood specimen / Unknown Venipuncture / Unknown 12/19/2024 12:25 AM EDT 12/19/2024 12:45 AM EDT Lisa Lloyd DO LAB BLOOD ORDERABLES Final Resu lt [facility] [address] [place] [address] * (ABNORMAL) Comprehensive Metabolic Panel, Plasma (12/19/2024 12:25 AM EDT) Glucose, Plasma 152(H) 74 - 99 mg/dL 12/19/2024 1:24 AM EDT [facility] BUN, Plasma 7(L) 8 - 23 mg/dL 12/19/2024 1:24 AM EDT [facility] Creatinine, Plasma 0.96 0.60 - 1.10 mg/dL 12/19/2024 1:24 AM EDT [facility] BUN/Creatinine Ratio 7 12/19/2024 1:24 AM EDT [facility] Sodium, Plasma 143 136 - 145 mmol/L 12/19/2024 1:24 AM EDT [facility] Potassium, Plasma 3.4(L) 3.6 - 4.9 mmol/L 12/19/2024 1:24 AM EDT [facility] Chloride, Plasma 105 97 - 107 mmol/L 12/19/2024 1:24 AM EDT [facility] CO2, Plasma 25 22 - 29 mmol/L 12/19/2024 1:24 AM EDT [facility] Anion Gap 13 6 - 16 mmol/L 12/19/2024 1:24 AM EDT [facility] Total Calcium, Plasma 9.0 8.9 - 10.2 mg/dL 12/19/2024 1:24 AM EDT [facility] Total Protein 6.5 6.3 - 7.9 g/dL 12/19/2024 1:24 AM EDT [facility] Albumin, Plasma 3.2(L) 3.5 - 5.2 g/dL 12/19/2024 1:24 AM EDT [facility] AST, Plasma 16 10 - 35 U/L 12/19/2024 1:24 AM EDT [facility] ALT, Plasma 11 10 - 35 U/L 12/19/2024 1:24 AM EDT [facility] Alkaline Phosphatase, Plasma 76 46 - 142 U/L 12/19/2024 1:24 AM EDT [facility] Total Bilirubin, Plasma 0.4 0.2 - 1.1 mg/dL 12/19/2024 1:24 AM EDT [facility] eGFRcr 66.2 mL/min/1.7 3m*2 12/19/2024 1:24 AM EDT [facility] Comment:Reported eGFRcr in m L/min/1.73m2 is based the CKD-EPI 2020 equation that does not use a race coefficient. Blood Venous blood specimen / Unknown Venipuncture / Unknown 12/19/2024 12:25 AM EDT 12/19/2024 12:45 AM EDT us Lisa Lloyd DO LAB BLOOD ORDERABLES Final Resu lt [facility] [address] [place] [address] * PICC DOUBLE LUMEN (SMARTFORM LINK) (12/18/2024 11:40 PM EDT) Narrative Brian Dai RN - 12/18/2024 11:40 PM EDT Brian Dai RN 12/19/2024 1:05 AM Insert PICC line Performed by: Brian Dai RN Authorized by: Lisa Lloyd DO [place] Protocol: Verbal consent obtained?: Yes Written consent [...] Left Location (Adult): Basilic vein (Largest vein, [id number] ratio 18%.) Site selection rationale: Infiltration from PIV in RUE. Patient position: Supine Catheter Lot #: [id number] Catheter financial intern: Bard Power PICC Provena Catheter with Solo [...] okay to use order will be placed. [place]ink[place] limb precaution armband placed on left wrist for PICC precautions while PICC is in place (No sticks/BP's). Green alcohol caps placed on ends of each lumen hub/heplock. VAT consult completed. Lisa Lenka Lloyd DO IV THERAPY ORDERABLES Edited Re [...] testing. Comment 12/18/2024 7:29 PM EDT [facility] Guard Captain ID José Woodsine 12/18/2024 7:29 PM EDT [facility] Device ID [id number] 12/18/2024 7:29 PM EDT [facility] Specimen Type POC Capillary 12/18/2024 7:29 PM EDT [facility] Blood Capillary blood specimen / Unknown 12/18/2024 7:27 PM EDT 12/18/2024 7:29 PM EDT Lisa Lloyd DO LAB POINT OF CARE TE ST DOCKED DEVICE UNSOLICITED RESULTS Final Result [facility] [address] [place] [address] * XR Chest 1 View (12/18/2024 6:26 [...] ECG Adult (12/18/2024 4:47 PM EDT) Pathologist [facility] EKG DIAGNOSIS CLASS Abnormal MUSE ECG Ventricular Rate 139 BPM MUSE ECG QRSD Interval 86 ms MUSE ECG QT Interval 314 ms MUSE ECG QTC Interval 477 ms MUSE ECG R [place] 7 degrees MUSE ECG T Wave [place] 26 degrees MUSE ECG Diagnosis Atrial fibrillation [...] POCT glucose meter (12/18/2024 4:39 PM EDT) Pathologist [facility] POCT Glucose 125(H) 74 - 99 mg/dL 12/18/2024 4:40 PM EDT [facility] Comment:Accuracy of a glucos e result [...] Comment 12/18/2024 4:40 PM EDT [facility] Guard Captain ID Margy Worthy 12/18/2024 4:40 PM EDT [facility] Device ID [id number] 12/18/2024 4:40 PM EDT [facility] Specimen Type POC Capillary 12/18/2024 4:40 PM EDT [facility] Blood Capillary blood specimen / Unknown 12/18/2024 4:39 PM EDT 12/18/2024 4:40 PM EDT Lisa Lloyd DO LAB POINT OF CARE TE ST DOCKED DEVICE UNSOLICITED RESULTS Final Result Performing Organization Address City/State/[facility] Co de Phone Number [facility] [address] [place] [address] * Transfuse RBC (12/18/2024 3:42 PM EDT) [...] Comment 12/18/2024 12:01 PM EDT [facility] Guard Captain ID ZaynabMargy nix 12/18/2024 12:01 PM EDT [facility] Device ID [id number] 12/18/2024 12:01 PM EDT [facility] Specimen Type POC Capillary 12/18/2024 12:01 PM EDT [facility] Blood Capillary blood specimen / Unknown 12/18/2024 11:59 AM EDT 12/18/2024 12:01 PM EDT Lisa Lloyd DO LAB POINT OF CARE TE ST DOCKED DEVICE UNSOLICITED RESULTS Final Result Performing Organization Address City/State/[facility] Co de Phone Number [facility] [address] [place] [address] * PERIPHERAL IV (SMARTFORM LINK) (12/18/2024 9:58 [...] RBC: 1 Units (12/18/2024 9:09 AM EDT) Pathologist [facility] Product Code [id number] CH BLOO D BANK Dispense Status Transfused BLOOD BANK Blood Expiration Date [id number] BLOOD BANK Unit Number [id number] CH B LOOD BANK Product Blood Type 5100 BLOOD BANK Blood Type O+ BLOOD BANK Crossmatch Compatible BLOOD BANK Other Lisa Og Gabino DAMON BLOOD BANK PRODUCT ORDERABLES F inal Result Performing Organization Address [facility] Co de Phone Number BLOOD BANK [address] [place] [address] * (ABNORMAL) POCT glucose meter (12/18/2024 7:55 AM EDT) [facility] POCT Glucose 155(H) 74 - 99 mg/dL [...] 12/18/2024 7:57 AM EDT [facility] Guard Captain ID ZaynabMargy nix 12/18/2024 7:57 AM EDT [facility]ALTH[facility] LAB Device ID [id number] 12/18/2024 7:57 AM EDT [facility] Specimen Type POC Capillary 12/18/2024 7:57 AM EDT [facility] Blood Capillary blood specimen / Unknown 12/18/2024 7:55 AM EDT 12/18/2024 7:57 AM EDT Lisa C Gabino DAMON LAB POINT OF CARE TE ST DOCKED DEVICE UNSOLICITED RESULTS Final Result Performing Organization Address City/[facility]/ZIP Co de Phone Number [facility] [address] [place] [address] * (ABNORMAL) CBC W/O Differential - HIT surveillance (12/18/2024 5:16 AM EDT) WBC Count 7.00 3.70 - 10.30 10*3/uL LAB HEMATOLOGY METHOD 12/18/2024 5:30 AM EDT [facility] RBC Count 2.28(L) 3.90 - 5.20 10*6/uL LAB HEMATOLOGY METHOD 12/18/2024 5:30 AM EDT [facility] HGB 6.9(L) 11.2 - 15.7 g/dL LAB HEMATOLOGY METHOD 12/18/2024 5:30 AM EDT [facility] HCT 22.4(L) 34.0 - 45.0 % LAB HEMATOLOGY METHOD 12/18/2024 5:30 AM EDT [facility] Platelet Count 201 155 - 369 10*3/uL LAB HEMATOLOGY METHOD 12/18/2024 5:30 AM EDT [facility] MCV 98 79 - 98 fL LAB HEMATOLOGY METHOD 12/18/2024 5:30 AM EDT [facility] MCH 30.3 26.0 - 32.0 pg LAB HEMATOLOGY METHOD 12/18/2024 5:30 AM EDT [facility] MCHC 30.8 30.7 - 35.5 g/dL LAB HEMATOLOGY METHOD 12/18/2024 5:30 AM EDT [facility] RDW 18.7(H) 11.5 - 14.5 % LAB HEMATOLOGY METHOD 12/18/2024 5:30 AM EDT [facility] MPV 10.0 8.8 - 12.5 fL LAB HEMATOLOGY METHOD 12/18/2024 5:30 AM EDT [facility] nRBC 0.0 <=0.0 per 100 WBCs LAB HEMATOLOGY METHOD 12/18/2024 5:30 AM EDT [facility] Blood Venous blood specimen / Unknown Venipuncture / Unknown 12/18/2024 5:16 AM EDT 12/18/2024 5:22 AM EDT us Ailyn Cabrera MD LAB BLOOD ORDERABLES Final Re sult [facility] [address] [place] [address] * Magnesium, Plasma (12/18/2024 5:16 AM EDT) Pathologist [facility] Magnesium, Plasma 2.0 1.9 - 2.4 mg/dL 12/18/2024 5:52 AM EDT [facility] Blood Venous blood specimen / Unknown Venipuncture / Unknown 12/18/2024 5:16 AM EDT 12/18/2024 5:23 AM EDT us Lisa Lloyd DO LAB BLOOD ORDERABLES Final Resu lt Performing Organization Address [facility]/ZIP Co de Phone Number [facility] [address] [place] [address] * (ABNORMAL) Comprehensive Metabolic Panel, Plasma (12/18/2024 5:16 AM EDT) Pathologist [facility] Glucose, Plasma 130(H) 74 - 99 mg/dL 12/18/2024 5:52 AM EDT [facility] BUN, Plasma 8 8 - 23 mg/dL 12/18/2024 5:52 AM EDT [facility] Creatinine, Plasma 1.05 0.60 - 1.10 mg/dL 12/18/2024 5:52 AM EDT [facility] BUN/Creatinine Ratio 8 12/18/2024 5:52 AM EDT [facility] Sodium, Plasma 146(H) 136 - 145 mmol/L 12/18/2024 5:52 AM EDT [facility] Potassium, Plasma 3.8 3.6 - 4.9 mmol/L 12/18/2024 5:52 AM EDT [facility] Chloride, Plasma 109(H) 97 - 107 mmol/L 12/18/2024 5:52 AM EDT [facility] CO2, Plasma 26 22 - 29 mmol/L 12/18/2024 5:52 AM EDT [facility] Anion Gap 11 6 - 16 mmol/L 12/18/2024 5:52 AM EDT [facility] Total Calcium, Plasma 8.8(L) 8.9 - 10.2 mg/dL 12/18/2024 5:52 AM EDT [facility] Total Protein 6.4 6.3 - 7.9 g/dL 12/18/2024 5:52 AM EDT [facility] Albumin, Plasma 3.0(L) 3.5 - 5.2 g/dL 12/18/2024 5:52 AM EDT [facility] AST, Plasma 23 10 - 35 U/L 12/18/2024 5:52 AM EDT [facility] Comment:Hemolyzed, result ma y be falsely increased. ALT, Plasma 11 10 - 35 U/L 12/18/2024 5:52 AM EDT [facility] Alkaline Phosphatase, Plasma 75 46 - 142 U/L 12/18/2024 5:52 AM EDT [facility] Total Bilirubin, Plasma 0.3 0.2 - 1.1 mg/dL 12/18/2024 5:52 AM EDT [facility] eGFRcr 59.5 mL/min/1.7 3m*2 12/18/2024 5:52 AM EDT [facility] Comment:Reported eGFRcr in m L/min/1.73m2 is based the CKD-EPI 2020 equation that does not use a race coefficient. Blood Venous blood specimen / Unknown Venipuncture / Unknown 12/18/2024 5:16 AM EDT 12/18/2024 5:23 AM EDT us Lisa Lloyd DO LAB BLOOD ORDERABLES Final Resu lt [facility] [address] [place] [address] * (ABNORMAL) Hemoglobin and Hematocrit, Blood (12/17/2024 9:59 PM EDT) HGB 6.9(L) 11.2 - 15.7 g/dL LAB HEMATOLOGY METHOD 12/17/2024 9:59 PM EDT [facility] HCT 22.2(L) 34.0 - 45.0 % LAB HEMATOLOGY METHOD 12/17/2024 9:59 PM EDT [facility] Blood Venous blood specimen / Unknown 12/17/2024 9:51 PM EDT us Lisa Lloyd DO LAB BLOOD ORDERABLES Final Resu lt [facility] [address] [place] [address] * PERIPHERAL IV (SMARTFORM LINK) (12/17/2024 9:45 [...] POCT glucose meter (12/17/2024 9:09 PM EDT) [facility] POCT Glucose 114(H) 74 - 99 mg/dL [...] for testing. Comment 12/17/2024 9:11 PM EDT [facility] Guard Captain ID Herman Gallardo 12/17/2024 9:11 PM EDT [facility] Device ID [id number] 12/17/2024 9:11 PM EDT [facility] Specimen Type POC Capillary 12/17/2024 9:11 PM EDT [facility] Blood Capillary blood specimen / Unknown 12/17/2024 9:09 PM EDT 12/17/2024 9:11 PM EDT Lisa Lenka Lloyd DO LAB POINT OF CARE TE ST DOCKED DEVICE UNSOLICITED RESULTS Final Result [facility] [address] [place] [id number] * (ABNORMAL) CBC W/O Differential - HIT surveillance (12/17/2024 3:22 PM EDT) WBC Count 8.32 3.70 - 10.30 10*3/uL LAB HEMATOLOGY METHOD 12/17/2024 3:49 PM EDT [facility] RBC Count 2.37(L) 3.90 - 5.20 10*6/uL LAB HEMATOLOGY METHOD 12/17/2024 3:49 PM EDT [facility] HGB 7.1(L) 11.2 - 15.7 g/dL LAB HEMATOLOGY METHOD 12/17/2024 3:49 PM EDT [facility] HCT 23.1(L) 34.0 - 45.0 % LAB HEMATOLOGY METHOD 12/17/2024 3:49 PM EDT [facility] Platelet Count 202 155 - 369 10*3/uL LAB HEMATOLOGY METHOD 12/17/2024 3:49 PM EDT [facility] MCV 98 79 - 98 fL LAB HEMATOLOGY METHOD 12/17/2024 3:49 PM EDT [facility] MCH 30.0 26.0 - 32.0 pg LAB HEMATOLOGY METHOD 12/17/2024 3:49 PM EDT [facility] MCHC 30.7 30.7 - 35.5 g/dL LAB HEMATOLOGY METHOD 12/17/2024 3:49 PM EDT [facility] RDW 18.6(H) 11.5 - 14.5 % LAB HEMATOLOGY METHOD 12/17/2024 3:49 PM EDT [facility] MPV 10.1 8.8 - 12.5 fL LAB HEMATOLOGY METHOD 12/17/2024 3:49 PM EDT [facility] nRBC 0.0 <=0.0 per 100 WBCs LAB HEMATOLOGY METHOD 12/17/2024 3:49 PM EDT [facility] Blood Venous blood specimen / Unknown Venipuncture / Unknown 12/17/2024 3:22 PM EDT 12/17/2024 3:40 PM EDT Ailyn Cabrera MD LAB BLOOD ORDERABLES Final Re sult Performing Organization Address [facility]/ZIP Co de Phone Number [facility] [address] [place] [address] * Phosphorus, Plasma (12/17/2024 3:22 PM EDT) Phosphorus, Plasma 3.5 2.5 - 4.5 mg/dL 12/17/2024 4:08 PM EDT [facility] Blood Venous blood specimen / Unknown Venipuncture / Unknown 12/17/2024 3:22 PM EDT 12/17/2024 3:38 PM EDT Lisa Lloyd DO LAB BLOOD ORDERABLES Final Resu lt Performing Organization Address [facility]/ZIP Co de Phone Number [facility] [address] [place] [address] * (ABNORMAL) Comprehensive Metabolic Panel, Plasma (12/17/2024 3:22 PM EDT) Glucose, Plasma 133(H) 74 - 99 mg/dL 12/17/2024 4:08 PM EDT [facility] BUN, Plasma 11 8 - 23 mg/dL 12/17/2024 4:08 PM EDT [facility] Creatinine, Plasma 1.14(H) 0.60 - 1.10 mg/dL 12/17/2024 4:08 PM EDT [facility] BUN/Creatinine Ratio 10 12/17/2024 4:08 PM EDT [facility] [facility] Sodium, Plasma 142 136 - 145 mmol/L 12/17/2024 4:08 PM EDT [facility] Potassium, Plasma 3.7 3.6 - 4.9 mmol/L 12/17/2024 4:08 PM EDT [facility] Chloride, Plasma 105 97 - 107 mmol/L 12/17/2024 4:08 PM EDT [facility] CO2, Plasma 27 22 - 29 mmol/L 12/17/2024 4:08 PM EDT [facility] Anion Gap 10 6 - 16 mmol/L 12/17/2024 4:08 PM EDT [facility] Total Calcium, Plasma 8.7(L) 8.9 - 10.2 mg/dL 12/17/2024 4:08 PM EDT [facility] Total Protein 6.5 6.3 - 7.9 g/dL 12/17/2024 4:08 PM EDT [facility] Albumin, Plasma 3.1(L) 3.5 - 5.2 g/dL 12/17/2024 4:08 PM EDT [facility] AST, Plasma 17 10 - 35 U/L 12/17/2024 4:08 PM EDT [facility] ALT, Plasma 10 10 - 35 U/L 12/17/2024 4:08 PM EDT [facility] Alkaline Phosphatase, Plasma 75 46 - 142 U/L 12/17/2024 4:08 PM EDT [facility] Total Bilirubin, Plasma 0.3 0.2 - 1.1 mg/dL 12/17/2024 4:08 PM EDT [facility] eGFRcr 53.9 mL/min/1.7 3m*2 12/17/2024 4:08 PM EDT [facility] Comment:Reported eGFRcr in m L/min/1.73m2 is based the CKD-EPI 2020 equation that does not use a race coefficient. Blood Venous blood specimen / Unknown Venipuncture / Unknown 12/17/2024 3:22 PM EDT 12/17/2024 3:38 PM EDT us Lisa Lloyd DO LAB BLOOD ORDERABLES Final Resu lt [facility] [address] [place] [address] * (ABNORMAL) Magnesium (12/17/2024 3:22 PM EDT) Magnesium, Plasma 1.7(L) 1.9 - 2.4 mg/dL 12/17/2024 4:08 PM EDT [facility] Blood Venous blood specimen / Unknown Venipuncture / Unknown 12/17/2024 3:22 PM EDT 12/17/2024 3:38 PM EDT Gordy Purvis APRN, [facility] LAB BLOOD ORDERAB LES Final Result Performing Organization Address City/[facility]/ZIP Co de Phone Number [facility] [address] [place] [address] * Type and Screen (12/17/2024 3:22 PM EDT) ABO/Rh O Positive 12/17/2024 12:01 AM EDT [facility] Antibody Screen Negative 12/17/2024 12:01 AM EDT [facility]LO[facility] Specimen Expiration 12/20/2024 23:59 12/17/2024 12:01 AM EDT BLO[facility]ANK Blood Venous blood specimen / Unknown Venipuncture / Unknown 12/17/2024 3:22 PM EDT 12/17/2024 3:39 PM EDT Abhilash Bangura MD LAB BLOOD BANK TEST ORDERABLES Final Result Performing Organization Address [facility] Phone Number BLOOD BANK [address] [place] [address] * Wilbur auris Surveillance by PCR (12/17/2024 4:24 AM EDT) Wilbur auris PCR Result Not Detected Not Detected 12/19/2024 5:43 AM EDT [facility] Swab (Axilla and Groin) Non-blood Collection / Unknown 12/17/2024 4:24 AM EDT 12/17/2024 5:09 AM EDT Narrative [facility] - 12/19/2024 5:43 AM EDT This PCR assay was developed and its performance characteristics determined by [facility] as appropriate for clinical purposes. This assay has not been cleared or approved by the FDA, but is performed in a CLIA regulated laboratory that is qualified to perform high-complexity testing. Desi Pop MD LAB MICROBIOLOGY - GENERAL ORDER SOLOMON Final Result Performing Organization Address [facility] Co de Phone Number [facility] [address] [place] [address] * (ABNORMAL) POCT glucose meter (12/16/2024 7:29 [...] for testing. Comment 12/16/2024 7:31 PM EDT [facility] Guard Captain ID Vale Batista 12/16/2024 7:31 PM EDT [facility] LAB Device ID [id number] 12/16/2024 7:31 PM EDT [facility] Specimen Type POC Capillary 12/16/2024 7:31 PM EDT [facility] Blood Capillary blood specimen / Unknown 12/16/2024 7:29 PM EDT 12/16/2024 7:31 PM EDT Desi Pop MD LAB POINT OF CARE TE ST DOCKED DEVICE UNSOLICITED RESULTS Final Result Performing Organization Address [facility] Co de Phone Number [facility] [address] [place] [address] * (ABNORMAL) POCT glucose meter (12/16/2024 4:55 [...] Comment 12/16/2024 4:57 PM EDT [facility] Guard Captain ID Kike William 025 4:57 PM EDT [facility] Device ID [id number] 12/16/2024 4:57 PM EDT [facility] Specimen Type POC Capillary 12/16/2024 4:57 PM EDT [facility] Blood Capillary blood specimen / Unknown 12/16/2024 4:55 PM EDT 12/16/2024 4:57 PM EDT Desi Pop MD LAB POINT OF CARE TE ST DOCKED DEVICE UNSOLICITED RESULTS Final Result Performing Organization Address City/[facility] Co de Phone Number [facility] [address] [place] [address] * Fungal Culture, Tissue and GARO (12/16/2024 1:59 PM EDT) Culture Reading Mycological 4 Weeks Fungal culture overgrown with bacteria 12/30/2024 6:53 AM EDT [facility] GARO No fungal elements seen 12/30/2024 6:53 AM EDT [facility] Bone Topography unknown / Unknown 12/16/2024 1:59 PM EDT 12/16/2024 3:02 PM EDT Comment:Pre-op diagnosis: Incisional infection [T81.49XA] Abhilash Bangura MD LAB MICROBIOLOGY - GENERAL ORD ERABLES Final Result Performing Organization Address City/[facility]/ZIP Co de Phone Number [facility] [address] [place] [phone] * (ABNORMAL) Bone Culture and Gram Stain (12/16/2024 1:59 PM EDT) Culture Light Growth 12/21/2024 3:10 PM EDT [facility] Culture Pseudomonas aeruginosa MDR, PROCESSING TECH(AA) DONAVAN 12/21/2024 3:10 PM EDT [facility] Comment: This isolate has been identified using the FDA Approved JP3 Measurementer CA System The organism value for this result has been updated. These results have been appended to the previously preliminary verified report. Edited result: Previously reported as Pseudomonas aeruginosa on 12/20/2024 at 0807 EDT. This is a corrected result. Previous organism was Pseudomonas aeruginosa MDR, [employer] on 12/20/2024 at 1256 EDT. Gram Stain Result Moderate Polymorphonuclear leukocytes 12/21/2024 3:10 PM EDT [facility] Gram Stain Result No organisms seen 12/21/2024 3:10 PM EDT [facility] Bone Topography unknown / Unknown 12/16/2024 1:59 PM EDT 12/16/2024 3:02 PM EDT Comment:Pre-op diagnosis: Incisional infection [T81.49XA] Narrative Organism Antibiotic Method Susceptibility Pseudomonas aeruginosa MDR, PROCESSING TECH Aztreonam DONAVAN 8 ug/ml: Susceptible Pseudomonas aeruginosa MDR, PROCESSING TECH Cefepime DONAVAN 8 ug/ml: Susceptible Pseudomonas aeruginosa MDR, PROCESSING TECH Levofloxacin DONAVAN >4 ug/ml: Resistant Pseudomonas aeruginosa MDR, PROCESSING TECH Meropenem DONAVAN >8 ug/ml: Resistant Pseudomonas aeruginosa MDR, PROCESSING TECH Tobramycin DONAVAN >8 ug/ml: Resistant Pseudomonas aeruginosa MDR, PROCESSING TECH Piperacillin/Tazobactam ETEST 96.0 ug/ml: Resistant Comment:The previously repor samaria component Piperacillin/Tazobactam is no longer being reported. Result [facility] Abhilash Bangura MD LAB MICROBIOLOGY - GENERAL ORD ERABLES Edited Result - Final [facility] [address] [place] [address] * AFB Culture, Non Respiratory Source and Acid Fast Stain (12/16/2024 1:59 PM EDT) AFB Culture No Mycobacterial Growth at 6 Weeks 01/29/2025 4:48 PM EDT [facility] Acid Fast Stain No acid fast bacilli seen 01/29/2025 4:48 PM EDT [facility] Bone Topography unknown / Unknown 12/16/2024 1:59 PM EDT 12/16/2024 3:02 PM EDT Comment:Pre-op diagnosis: Incisional infection [T81.49XA] Abhilash Bangura MD LAB MICROBIOLOGY - GENERAL ORD ERABLES Final Result Performing Organization Address City/[facility]/ZIP Co de Phone Number [facility] [address] [place] [address] * Anaerobic Culture (12/16/2024 1:59 PM EDT) Culture No anaerobes isolated 12/20/2024 2:47 PM EDT [facility] Bone Topography unknown / Unknown 12/16/2024 1:59 PM EDT 12/16/2024 3:02 PM EDT Comment:Pre-op diagnosis: Incisional infection [T81.49XA] Abhilash Bangura MD LAB MICROBIOLOGY - GENERAL ORD ERABLES Final Result Performing Organization Address [facility] Co de Phone Number [facility] [address] [place] [address] * (ABNORMAL) Routine Culture and Gram Stain (12/16/2024 1:58 PM EDT) Culture Light Growth 12/21/2024 3:10 PM EDT [facility] Culture Pseudomonas aeruginosa MDR, PROCESSING TECH(AA) DONAVAN 12/21/2024 3:10 PM EDT [facility] Comment: This isolate has been identified using the FDA Approved JP3 Measurementer CA System The organism value for this result has been updated. These results have been appended to the previously preliminary verified report. Edited result: Previously reported as Pseudomonas aeruginosa on 12/20/2024 at 0807 EDT. This is a corrected result. Previous organism was Pseudomonas aeruginosa PROCESSING TECH on 12/21/2024 at 1131 EDT. Gram Stain Result Moderate Polymorphonuclear leukocytes 12/21/2024 3:10 PM EDT [facility] Gram Stain Result No organisms seen 12/21/2024 3:10 PM EDT [facility] Swab Topography unknown / Unknown 12/16/2024 1:58 PM EDT 12/16/2024 3:01 PM EDT Comment:Pre-op diagnosis: Incisional infection [T81.49XA] Narrative Organism Antibiotic Method Susceptibility Pseudomonas aeruginosa MDR, PROCESSING TECH Aztreonam DONAVAN 8 ug/ml: Susceptible Pseudomonas aeruginosa MDR, PROCESSING TECH Cefepime DONAVAN 8 ug/ml: Susceptible Pseudomonas aeruginosa MDR, PROCESSING TECH Levofloxacin DONAVAN >4 ug/ml: Resistant Pseudomonas aeruginosa MDR, PROCESSING TECH Meropenem DONAVAN >8 ug/ml: Resistant Pseudomonas aeruginosa MDR, PROCESSING TECH Tobramycin DONAVAN >8 ug/ml: Resistant Pseudomonas aeruginosa MDR, PROCESSING TECH Piperacillin/Tazobactam ETEST 96.0 ug/ml: Resistant Comment:The previously repor samraia component Piperacillin/Tazobactam is no longer being reported. Abhilash Bangura MD LAB MICROBIOLOGY - GENERAL ORD ERABLES Edited Result - Final Performing Organization Address City/[facility] Co de Phone Number [facility] [address] [place] [address] * Fungal Culture, Routine (12/16/2024 1:58 PM EDT) Culture No Fungal Growth at 1 Week 12/23/2024 6:39 AM EDT [facility] Swab Topography unknown / Unknown 12/16/2024 1:58 PM EDT 12/16/2024 3:01 PM EDT Comment:Pre-op diagnosis: Incisional infection [T81.49XA] Abhilash Bangura MD LAB MICROBIOLOGY - GENERAL ORD ERABLES Final Result Performing Organization Address [facility] Co de Phone Number [facility] [address] [place] [address] * Anaerobic Culture (12/16/2024 1:58 PM EDT) Culture No anaerobes isolated 12/20/2024 2:47 PM EDT [facility] Swab Topography unknown / Unknown 12/16/2024 1:58 PM EDT 12/16/2024 3:01 PM EDT Comment:Pre-op diagnosis: Incisional infection [T81.49XA] Result [facility] Abhilash Bangura MD LAB MICROBIOLOGY - GENERAL ORD ERABLES Final Result Performing Organization Address City/[facility] Co de Phone Number [facility] [address] [place] [address] * (ABNORMAL) POCT glucose meter (12/16/2024 12:53 PM EDT) Pathologist [facility] POCT Glucose 152(H) 74 - 99 mg/dL [...] Comment 12/16/2024 12:55 PM EDT [facility] Guard Captain ID Christina Pierce 12/17/19 12:55 PM EDT [facility] Device ID [id number] 12/16/2024 12:55 PM EDT [facility] Specimen Type POC Venous 12/16/2024 12:55 PM EDT [facility] Blood Venous blood specimen / Unknown 12/16/2024 12:53 PM EDT 12/16/2024 12:55 PM EDT Desi Pop MD LAB POINT OF CARE TE ST DOCKED DEVICE UNSOLICITED RESULTS Final Result [facility] [address] [place] [address] * (ABNORMAL) Respiratory Culture and Gram Stain (12/16/2024 8:47 AM EDT) [facility] Culture Smear contains >=10 squamous epithelial cells per low power field, suggestive of poor quality. Culture not performed. A credit has been issued. 12/16/2024 9:50 AM EDT [facility] Gram Stain Result Greater than 10 Epithelial cells/LPF(A) 12/16/2024 9:50 AM EDT [facility] Gram Stain Result Fewer than 25 WBC/LPF(A) 12/16/2024 9:50 AM EDT [facility] Gram Stain Result Few Gram positive cocci in clusters(A) 12/16/2024 9:50 AM EDT [facility] Gram Stain Result Rare Gram positive cocci in pairs and chains(A) 12/16/2024 9:50 AM EDT [facility] Gram Stain Result Few Gram negative rods(A) 12/16/2024 9:50 AM EDT [facility] Gram Stain Result Rare Budding yeast(A) 12/16/2024 9:50 AM EDT [facility] Sputum Coughed sputum specimen / Unknown Non-blood Collection / Unknown 12/16/2024 8:47 AM EDT 12/16/2024 9:09 AM EDT Gordy Purvis APRN, DNP LAB MICROBIOLOGY - GENERAL ORDERABLES Final Result [facility] [address] [place] [address] * Histoplasma Galactomannan EIA, Urine (SO) (12/16/2024 8:39 AM EDT) Histoplasma Galactomannan EIA, Urine <0.3 <0.3 ng/mL 12/17/2024 5:07 PM EDT [facility] (ALEX) Comment: This test is used for the [...] Histoplasma Galactomannan EIA is a product of [employer] and is labeled for in-vitro diagnostic use. This test has been registered with the FDA and is considered safe and effective for the detection of Histoplasma Galactomannan. Testing Performed at: [employer] [employer] [address] [place] [address], [address] [place] [address] Testing Shaking Shipping: Anatoly Turk, PhD BCLD (ABB) CLIA # [id number] FLAG Interpretation: A = Abnormal, H = High, L = Low Urine Urine specimen obtained by clean catch procedure / Unknown Non-blood Collection / Unknown 12/16/2024 8:39 AM EDT 12/16/2024 9:04 AM EDT Narrative [facility] (ALEX) - 12/17/2024 5:07 PM EDT Release to patient in [facility]->Immediate Gordy Purvis APRN, DNP LAB REF LAB BLOOD AND FLUID ORD Final Result [facility] (ALEX) * Streptococcus pneumoniae and Legionella Urinary Antigen (12/16/2024 8:39 AM EDT) Legionella pneumophila serogroup 1 Antigen Result (Urine) Negative Negative 12/16/2024 10:35 AM EDT [facility] Streptococcus pneumoniae Antigen Result (Urine) Negative Negative 12/16/2024 10:35 AM EDT [facility] Urine Urine specimen obtained by clean catch procedure / Unknown Non-blood Collection / Unknown 12/16/2024 8:39 AM EDT 12/16/2024 9:09 AM EDT Gordy Purvis APRN, DNP LAB MICROBIOLOGY - GENERAL ORDERABLES Final Result [facility] [address] [facility] [place] [facility] [place] [address] * (ABNORMAL) POCT glucose meter (12/16/2024 8:28 [...] Comment 12/16/2024 8:42 AM EDT [facility] LAB Guard Captain ID Marie Arroyo 8:42 AM EDT [facility] Device ID [id number] 12/16/2024 8:42 AM EDT [facility] Specimen Type POC Capillary 12/16/2024 8:42 AM EDT [facility] Blood Capillary blood specimen / Unknown 12/16/2024 8:28 AM EDT 12/16/2024 8:42 AM EDT us Desi Pop MD LAB POINT OF CARE TE ST DOCKED DEVICE UNSOLICITED RESULTS Final Result Performing Organization Address City/[facility]/ZIP Co de Phone Number [facility]ALTH[facility] [address] [place] [address] * APTT (12/16/2024 8:24 AM EDT) [facility] aPTT 26 25 - 35 sec 12/16/2024 8:43 AM EDT [facility] Blood Venous blood specimen / Unknown Venipuncture / Unknown 12/16/2024 8:24 AM EDT 12/16/2024 8:28 AM EDT us Abhilash Bangura MD LAB BLOOD ORDERABLES Final Res ult Performing Organization Address City/[facility]/ZIP Co de Phone Number [facility] [address] [place] [address] * (ABNORMAL) Prothrombin Time/INR (12/16/2024 8:24 AM EDT) [facility] Prothrombin Time 15.1(H) 12.0 - 14.3 sec 12/16/2024 8:42 AM EDT [facility] INR 1.2(H) 0.9 - 1.1 12/16/2024 8:42 AM EDT [facility] Blood Venous blood specimen / Unknown Venipuncture / Unknown 12/16/2024 8:24 AM EDT 12/16/2024 8:28 AM EDT Narrative [facility] - 12/16/2024 8:42 AM EDT OPTIMAL INR RANGES FOR PATIENT ON ORAL ANTICOAGULANT THERAPY Prevention of venous thromboembolism INR 2.0 to 3.0 In patients with heart disease: Atrial fibrillation INR 2.0 to 3.0 Valvular heart disease INR 2.0 to 3.0 Tissue heart valves INR 2.0 to 3.0 Mechanical prosthetic valves INR 2.5 to 3.5 Prevention of recurrent HI INR 2.5 to 3.5 us Abhilash Bangura MD LAB BLOOD ORDERABLES Final Res ult Performing Organization Address [facility] Co de Phone Number [facility] [address] [place] [address] * Methicillin Resistant Staphylococcus aureus (MRSA) by PCR (12/16/2024 7:50 AM EDT) Methicillin Resistant Staphylococcus aureus (MRSA) by PCR Not Detected Not Detected 12/16/2024 10:01 AM EDT [facility] Swab Both anterior nares / Unknown Non-blood Collection / Unknown 12/16/2024 7:50 AM EDT 12/16/2024 8:46 AM EDT Narrative [facility] - 12/16/2024 10:01 AM EDT This test is FDA approved for use with nares swab specimens using the eSwabs. This test is used for clinical purposes. It should not be regarded as investigational or for research. This laboratory is certified under the Clinical Laboratory improvement Amendments of 1988 (CLIA-88 as qualified to perform high complexity clinical laboratory testing. us Gordy Purvis APRN, DNP LAB MICROBIOLOGY - GENERAL ORDERABLES Final Result Performing Organization Address [facility] Co de Phone Number [facility] [address] [place] [address] * Multi Drug Resistance Test (12/16/2024 7:50 AM EDT) Culture No growth at day 1 12/17/2024 9:52 AM EDT [facility] Swab (Nares and Carole Rectal) Non-blood Collection / Unknown 12/16/2024 7:50 AM EDT 12/16/2024 8:45 AM EDT Narrative [facility] - 12/17/2024 9:52 AM EDT This test was developed and its performance characteristics determined by the [facility]. Although the media is FDA-approved, it is not FDA-approved for all specimen types submitted. The FDA has determined that such clearance or approval is not necessary. This test is used for surveillance purposes. It should not be regarded as investigational or for research. The [facility] is certified under the Clinical Laboratory Improvement Amendments of 1988 (CLIA-88) as qualified to perform high complexity clinical laboratory testing. Gordy Purvis APRN, DNP LAB MICROBIOLOGY - GENERAL ORDERABLES Final Result [facility] [address] [place] [address] * (ABNORMAL) Procalcitonin (12/16/2024 5:52 AM EDT) Procalcitonin, Plasma 0.15(H) <0.09 ng/mL 12/16/2024 7:10 AM EDT [facility] Blood Venous blood specimen / Unknown Venipuncture / Unknown 12/16/2024 5:52 AM EDT 12/16/2024 5:55 AM EDT Narrative [facility] - 12/16/2024 7:10 AM [...] predict 28 day mortality risk. Please consult [email or web address] for more information. Test performed at [facility]. us oGrdy Purvis APRN, DNP LAB BLOOD ORDERAB LES Final Result Performing Organization Address [facility]/ZIP Co de Phone Number [facility] [address] [place] [address] * Blood Culture (Aerobic/Anaerobet Set) (12/16/2024 5:52 AM EDT) [facility] Culture No growth at day 5 12/21/2024 7:01 AM EDT [facility] Blood Venous blood specimen / Unknown Venipuncture / Unknown 12/16/2024 5:52 AM EDT 12/16/2024 6:14 AM EDT Narrative [facility] - 12/21/2024 7:01 AM EDT Low blood volume submitted, results may be compromised us Amilcar Ibarra MD LAB MICROBIOLOGY - G ENERAL ORDERABLES Final Result Performing Organization Address [facility] Co de Phone Number [facility] [address] [place] [address] * (ABNORMAL) C-reactive protein (12/16/2024 5:52 AM EDT) CRP, Plasma 54.2(H) <=8.0 mg/L 12/16/2024 6:44 AM EDT [facility] Blood Venous blood specimen / Unknown Venipuncture / Unknown 12/16/2024 5:52 AM EDT 12/16/2024 5:55 AM EDT Narrative [facility] - 12/16/2024 6:44 AM EDT This CRP test is appropriate for assessment of infection, systemic inflammation and/or tissue injury. To assess cardiovascular disease risk order high sensitivity CRP (CRPH). us Amilcar Ibarra MD LAB BLOOD ORDERABLES Final Result [facility] [address] [place] [address] * (ABNORMAL) Sedimentation Rate, Automated (12/16/2024 5:52 AM EDT) Sedimentation Rate 46(H) <30 mm/hr 2024 6:08 AM EDT [facility] Blood Venous blood specimen / Unknown Venipuncture / Unknown 12/16/2024 5:52 AM EDT 12/16/2024 5:55 AM EDT Amilcar Ibarra MD LAB BLOOD ORDERABLES Final Result Performing Organization Address City/[facility]/ZIP Co de Phone Number [facility] [address] [place] [address] * (ABNORMAL) CBC W/O Differential (12/16/2024 5:52 AM EDT) WBC Count 9.08 3.70 - 10.30 10*3/uL LAB HEMATOLOGY METHOD 12/16/2024 5:57 AM EDT [facility] RBC Count 2.69(L) 3.90 - 5.20 10*6/uL LAB HEMATOLOGY METHOD 12/16/2024 5:57 AM EDT [facility] HGB 8.0(L) 11.2 - 15.7 g/dL LAB HEMATOLOGY METHOD 12/16/2024 5:57 AM EDT [facility] HCT 25.6(L) 34.0 - 45.0 % LAB HEMATOLOGY METHOD 12/16/2024 5:57 AM EDT [facility] Platelet Count 187 155 - 369 10*3/uL LAB HEMATOLOGY METHOD 12/16/2024 5:57 AM EDT [facility] MCV 95 79 - 98 fL LAB HEMATOLOGY METHOD 12/16/2024 5:57 AM EDT [facility] MCH 29.7 26.0 - 32.0 pg LAB HEMATOLOGY METHOD 12/16/2024 5:57 AM EDT [facility] MCHC 31.3 30.7 - 35.5 g/dL LAB HEMATOLOGY METHOD 12/16/2024 5:57 AM EDT [facility] RDW 18.7(H) 11.5 - 14.5 % LAB HEMATOLOGY METHOD 12/16/2024 5:57 AM EDT [facility] MPV 9.4 8.8 - 12.5 fL LAB HEMATOLOGY METHOD 12/16/2024 5:57 AM EDT [facility] nRBC 0.0 <=0.0 per 100 WBCs LAB HEMATOLOGY METHOD 12/16/2024 5:57 AM EDT [facility] Blood Venous blood specimen / Unknown Venipuncture / Unknown 12/16/2024 5:52 AM EDT 12/16/2024 5:55 AM EDT us Abhilash Bangura MD LAB BLOOD ORDERABLES Final Res ult [facility] [address] [place] [address] * (ABNORMAL) Basic Metabolic Panel, Plasma (12/16/2024 5:52 AM EDT) Glucose, Plasma 168(H) 74 - 99 mg/dL 12/16/2024 6:44 AM EDT [facility] BUN, Plasma 18 8 - 23 mg/dL 12/16/2024 6:44 AM EDT [facility] Creatinine, Plasma 1.50(H) 0.60 - 1.10 mg/dL 12/16/2024 6:44 AM EDT [facility] BUN/Creatinine Ratio 12 12/16/2024 6:44 AM EDT [facility] Sodium, Plasma 138 136 - 145 mmol/L 12/16/2024 6:44 AM EDT [facility] Potassium, Plasma 3.8 3.6 - 4.9 mmol/L 12/16/2024 6:44 AM EDT [facility] Chloride, Plasma 100 97 - 107 mmol/L 12/16/2024 6:44 AM EDT [facility] CO2, Plasma 24 22 - 29 mmol/L 12/16/2024 6:44 AM EDT [facility] [facility] Anion Gap 14 6 - 16 mmol/L 12/16/2024 6:44 AM EDT [facility] Total Calcium, Plasma 9.0 8.9 - 10.2 mg/dL 12/16/2024 6:44 AM EDT [facility] eGFRcr 38.8 mL/min/1.7 3m*2 12/16/2024 6:44 AM EDT [facility] Comment:Reported eGFRcr in m L/min/1.73m2 is based the CKD-EPI 2020 equation that does not use a race coefficient. Blood Venous blood specimen / Unknown Venipuncture / Unknown 12/16/2024 5:52 AM EDT 12/16/2024 5:55 AM EDT us Abhilash Bangura MD LAB BLOOD ORDERABLES Final Res ult Performing Organization Address City/[facility]/ZIP Co de Phone Number [facility] [address] [place] [address] * (ABNORMAL) Magnesium, Plasma (12/16/2024 5:52 AM EDT) Magnesium, Plasma 1.0(L) 1.9 - 2.4 mg/dL 12/16/2024 6:44 AM EDT [facility] Blood Venous blood specimen / Unknown Venipuncture / Unknown 12/16/2024 5:52 AM EDT 12/16/2024 5:55 AM EDT us Abhilash Bangura MD LAB BLOOD ORDERABLES Final Res ult [facility] [address] [place] [address] * Phosphorus, Plasma (12/16/2024 5:52 AM EDT) Phosphorus, Plasma 2.9 2.5 - 4.5 mg/dL 12/16/2024 6:44 AM EDT [facility] Blood Venous blood specimen / Unknown Venipuncture / Unknown 12/16/2024 5:52 AM EDT 12/16/2024 5:55 AM EDT us Abhilash Bangura MD LAB BLOOD ORDERABLES Final Res ult [facility] [address] [place] [address] * ECG Adult (12/16/2024 4:31 AM EDT) EKG DIAGNOSIS CLASS Abnormal MUSE ECG Ventricular Rate 150 BPM MUSE ECG QRSD Interval 86 ms MUSE ECG QT Interval 314 ms MUSE ECG QTC Interval 496 ms MUSE ECG R [place] 9 degrees MUSE ECG T Wave [place] 62 degrees MUSE ECG Diagnosis Atrial fibrillation with rapid ventricular response MUSE ECG Diagnosis Nonspecific ST and T wave abnormality MUSE ECG Diagnosis Abnormal ECG MUSE ECG Diagnosis MUSE ECG Diagnosis Confirmed by Cleve Fuller ([id number]) on 12/16/2024 1:22:18 PM MUSE ECG 12/16/2024 4:31 AM EDT 12/16/2024 1:22 PM EDT Gordy Purvis APRN, DNP ECG ORDERABLES F inal Result MUSE ECG * (ABNORMAL) Protime-INR (12/16/2024 3:36 AM EDT) Prothrombin Time 15.2(H) 12.0 - 14.3 sec 12/16/2024 4:00 AM EDT [facility] INR 1.2(H) 0.9 - 1.1 12/16/2024 4:00 AM EDT [facility] Blood Venous blood specimen / Unknown Venipuncture / Unknown 12/16/2024 3:36 AM EDT 12/16/2024 3:47 AM EDT Narrative [facility] - 12/16/2024 4:00 AM EDT OPTIMAL INR RANGES FOR PATIENT ON ORAL ANTICOAGULANT THERAPY Prevention of venous thromboembolism INR 2.0 to 3.0 In patients with heart disease: Atrial fibrillation INR 2.0 to 3.0 Valvular heart disease INR 2.0 to 3.0 Tissue heart valves INR 2.0 to 3.0 Mechanical prosthetic valves INR 2.5 to 3.5 Prevention of recurrent HI INR 2.5 to 3.5 Ailyn Cabrera MD LAB BLOOD ORDERABLES Final Re sult Performing Organization Address [facility] de Phone Number [facility] [address] [place] [address] * Anti Xa Level by Unfractionated Heparin - Baseline (12/16/2024 3:36 AM EDT) Anti Xa Level Unfractionated Heparin <0.11 <1.00 IU/mL 12/16/2024 4:02 AM EDT [facility] Blood Venous blood specimen / Unknown Venipuncture / Unknown 12/16/2024 3:36 AM EDT 12/16/2024 3:47 AM EDT [facility] - 12/16/2024 4:02 AM EDT Therapeutic Range: UFH Full Dose and ACS/HI protocols*: 0.30 - 0.70 IU/mL UFH Low Dose protocol*: 0.25 - 0.50 IU/mL UFH prophylaxis: Not established Ailyn Cabrera MD LAB BLOOD ORDERABLES Final Re sult Performing Organization Address [facility] de Phone Number [facility] [address] [place] [address] * (ABNORMAL) Troponin T, High Sensitivity, 2 Hour, Plasma (12/16/2024 1:39 AM EDT) Troponin T, High Sensitivity, 2 Hour 28(H) <14 ng/L 12/16/2024 2:08 AM EDT [facility] Troponin Delta 1 <10 ng/L 12/16/2024 2:08 AM EDT [facility] Troponin Delta Interpretation Not Significant 12/16/2024 2:08 AM EDT [facility] Comment:Not Significant. No acute change in troponin observed between the baseline and 2 hour samples. Blood Venous blood specimen / Unknown Venipuncture / Unknown 12/16/2024 1:39 AM EDT 12/16/2024 1:40 AM EDT us Balwinder Lock MD LAB BLOOD ORDERABLES Final Resul t [facility] [address] [place] [address] * CT Angio Pulmonary Embolism (12/16/2024 1:30 [...] Manjit Uriostegui MD on 12/16/2024 1:59 AM Ailyn Cabrera MD IMG CT PROCEDURES [...] ECG Atrial Rate 76 BPM MUSE ECG ME Interval 144 ms MUSE ECG QRSD Interval 88 ms MUSE ECG QT Interval 350 ms MUSE ECG QTC Interval 393 ms MUSE ECG P [place] 73 degrees MUSE ECG R [place] 23 degrees MUSE ECG T Wave [place] 66 degrees MUSE ECG Diagnosis Sinus rhythm [...] PCR - Rapid (12/15/2024 11:19 PM EDT) SARS CoV-2/COVID-1 9 RNA PCR Result Not Detected Not Detected 12/16/2024 1:22 AM EDT [facility] Swab Nasopharyngeal structure / Unknown Non-blood Collection / Unknown 12/15/2024 11:19 PM EDT 12/16/2024 12:39 AM EDT Narrative [facility] - 12/16/2024 1:22 AM [...] This test was performed on the [employer] SARS CoV-2 Plus assay test, a PCR- based method. Negative results should be considered presumptive and do not preclude current or future infection obtained through community transmission or other exposures. Negative results must be considered in the context of an individual's recent exposures, history, presence of clinical signs and symptoms consistent with COVID-19. Balwinder Lcok MD LAB MICROBIOLOGY - GENERAL ORDER SOLOMON Final Result [facility] [address] [place] [address] * Nasopharyngeal Respiratory Panel (12/15/2024 11:19 PM EDT) Nasopharyngeal Respiratory PCR Interpretation Not Detected for all analytes Not Detected for all analytes 12/16/2024 2:33 AM EDT [facility] Swab Nasopharyngeal structure / Unknown Non-blood Collection / Unknown 12/15/2024 11:19 PM EDT 12/16/2024 12:39 AM EDT Narrative [facility] - 12/16/2024 2:33 AM [...] Respiratory PCR Panel is performed using the [employer] ePlex instrument. This test is FDA approved for use with Nasopharyngeal swabs only. This test is used for clinical purposes. It should not be regarded as investigational or for research. The [facility] Clinical Microbiology Laboratory is certified under the Clinical Laboratory Improvement Amendments of 1988 (CLIA-88) as qualified to perform high complexity clinical laboratory testing. Balwinder Lock MD LAB MICROBIOLOGY - GENERAL ORDER SOLOMON Final Result [facility] [address] [place] [address] * (ABNORMAL) CBC W/O Differential - Baseline (12/15/2024 11:18 PM EDT) WBC Count 9.58 3.70 - 10.30 10*3/uL LAB HEMATOLOGY METHOD 12/16/2024 3:22 AM EDT [facility] RBC Count 2.55(L) 3.90 - 5.20 10*6/uL LAB HEMATOLOGY METHOD 12/16/2024 3:22 AM EDT [facility] HGB 7.5(L) 11.2 - 15.7 g/dL LAB HEMATOLOGY METHOD 12/16/2024 3:22 AM EDT [facility] HCT 24.7(L) 34.0 - 45.0 % LAB HEMATOLOGY METHOD 12/16/2024 3:22 AM EDT [facility] Platelet Count 206 155 - 369 10*3/uL LAB HEMATOLOGY METHOD 12/16/2024 3:22 AM EDT [facility] MCV 97 79 - 98 fL LAB HEMATOLOGY METHOD 12/16/2024 3:22 AM EDT [facility] MCH 29.4 26.0 - 32.0 pg LAB HEMATOLOGY METHOD 12/16/2024 3:22 AM EDT [facility] MCHC 30.4(L) 30.7 - 35.5 g/dL LAB HEMATOLOGY METHOD 12/16/2024 3:22 AM EDT [facility] RDW 18.6(H) 11.5 - 14.5 % LAB HEMATOLOGY METHOD 12/16/2024 3:22 AM EDT [facility] MPV 10.7 8.8 - 12.5 fL LAB HEMATOLOGY METHOD 12/16/2024 3:22 AM EDT [facility] nRBC 0.0 <=0.0 per 100 WBCs LAB HEMATOLOGY METHOD 12/16/2024 3:22 AM EDT [facility] Blood Venous blood specimen / Unknown Venipuncture / Unknown 12/15/2024 11:18 PM EDT 12/15/2024 11:29 PM EDT Ailyn Cabrera MD LAB BLOOD ORDERABLES Final Re sult Performing Organization Address City/[facility]/[place] [address] * Blood Culture (Aerobic/Anaerobet Set) (12/15/2024 11:18 PM EDT) Culture No growth at day 5 12/21/2024 2:01 AM EDT [facility] Blood Venous blood specimen / Unknown Venipuncture / Unknown 12/15/2024 11:18 PM EDT 12/16/2024 12:59 AM EDT us Balwinder Lock MD LAB MICROBIOLOGY - GENERAL ORDER SOLOMON Final Result Performing Organization Address City/[facility]/[place] [address] * (ABNORMAL) Sed rate, automated (12/15/2024 11:18 PM EDT) Sedimentation Rate 50(H) <30 mm/hr 2024 11:40 PM EDT [facility] Blood Venous blood specimen / Unknown Venipuncture / Unknown 12/15/2024 11:18 PM EDT 12/15/2024 11:29 PM EDT us Balwinder Lock MD LAB BLOOD ORDERABLES Final Resul t Performing Organization Address City/[facility]/ZIP Co de Phone Number [facility] [address] [place] [address] * (ABNORMAL) C-reactive protein (12/15/2024 11:18 PM EDT) CRP, Plasma 50.7(H) <=8.0 mg/L 12/15/2024 11:55 PM EDT [facility] Blood Venous blood specimen / Unknown Venipuncture / Unknown 12/15/2024 11:18 PM EDT 12/15/2024 11:23 PM EDT Narrative [facility] - 12/15/2024 11:55 PM EDT This CRP test is appropriate for assessment of infection, systemic inflammation and/or tissue injury. To assess cardiovascular disease risk order high sensitivity CRP (CRPH). Balwinder Lock MD LAB BLOOD ORDERABLES Final Resul t [facility] [address] [place] [address] * (ABNORMAL) Blood gas panel, venous (12/15/2024 11:18 PM EDT) Pathologist [facility] pH, Venous 7.39 7.32 - 7.43 LAB HEMATOLOGY METHOD 12/15/2024 11:36 PM EDT [facility] pCO2, Venous 54(H) 37 - 52 mmHg LAB HEMATOLOGY METHOD 12/15/2024 11:36 PM EDT [facility] pO2, Venous 39 25 - 40 mmHg LAB HEMATOLOGY METHOD 12/15/2024 11:36 PM EDT [facility] SO2, Measured, Venous 68 65 - 80 % LAB HEMATOLOGY METHOD 12/15/2024 11:36 PM EDT [facility] Base Excess, Venous 6.5(H) -2.0 - 3.0 mmol/L LAB HEMATOLOGY METHOD 12/15/2024 11:36 PM EDT [facility] Bicarbonate, Calculated, Venous 32(H) 22 - 26 mmol/L LAB HEMATOLOGY METHOD 12/15/2024 11:36 PM EDT [facility] Hematocrit, Whole Blood 23.4(L) 34.0 - 45.0 % LAB HEMATOLOGY METHOD 12/15/2024 11:36 PM EDT [facility] Sodium, Whole Blood 142 136 - 145 mmol/L LAB HEMATOLOGY METHOD 12/15/2024 11:36 PM EDT [facility] Potassium, Whole Blood 3.8 3.6 - 4.9 mmol/L LAB HEMATOLOGY METHOD 12/15/2024 11:36 PM EDT [facility] Chloride, Whole Blood 100 97 - 107 mmol/L LAB HEMATOLOGY METHOD 12/15/2024 11:36 PM EDT [facility] Glucose, Whole Blood 126(H) 74 - 99 mg/dL LAB HEMATOLOGY METHOD 12/15/2024 11:36 PM EDT [facility] Lactate, Venous, Whole Blood 0.8 0.5 - 2.2 mmol/L LAB HEMATOLOGY METHOD 12/15/2024 11:36 PM EDT [facility] Ionized Calcium, Whole Blood 4.7 4.6 - 5.1 mg/dL LAB HEMATOLOGY METHOD 12/15/2024 11:36 PM EDT [facility] Blood Venous blood specimen / Unknown Venipuncture / Unknown 12/15/2024 11:18 PM EDT 12/15/2024 11:34 PM EDT us Balwinder Lock MD LAB BLOOD ORDERABLES Final Resul t [facility] [address] [place] [address] * BNP (12/15/2024 11:18 PM EDT) N-Terminal, PROBNP, Plasma 879 0 - 899 pg/mL 12/15/2024 11:55 PM EDT [facility] Blood Venous blood specimen / Unknown Venipuncture / Unknown 12/15/2024 11:18 PM EDT 12/15/2024 11:23 PM EDT us Balwinder Lock MD LAB BLOOD ORDERABLES Final Resul t [facility] [address] [place] [address] * (ABNORMAL) Troponin now and 120 min (12/15/2024 11:18 PM EDT) Troponin T, High Sensitivity, 0 Hour 29(H) <14 ng/L 12/15/2024 11:55 PM EDT [facility] Blood Venous blood specimen / Unknown Venipuncture / Unknown 12/15/2024 11:18 PM EDT 12/15/2024 11:23 PM EDT us Balwinder Lock MD LAB BLOOD ORDERABLES Final Resul t Performing Organization Address City/[facility]/ZIP Co de Phone Number [facility] [address] [place] [address] * (ABNORMAL) Lipase (12/15/2024 11:18 PM EDT) Lipase, Plasma 15(L) 19 - 63 U/L 12/15/2024 11:55 PM EDT [facility] Blood Venous blood specimen / Unknown Venipuncture / Unknown 12/15/2024 11:18 PM EDT 12/15/2024 11:23 PM EDT us Balwinder Lock MD LAB BLOOD ORDERABLES Final Resul t Performing Organization Address City/[facility]/ZIP Co de Phone Number [facility] [address] [place] [address] * (ABNORMAL) CMP (12/15/2024 11:18 PM EDT) Glucose, Plasma 132(H) 74 - 99 mg/dL 12/15/2024 11:55 PM EDT [facility] BUN, Plasma 19 8 - 23 mg/dL 12/15/2024 11:55 PM EDT [facility] Creatinine, Plasma 1.48(H) 0.60 - 1.10 mg/dL 12/15/2024 11:55 PM EDT [facility] BUN/Creatinine Ratio 13 12/15/2024 11:55 PM EDT [facility] Sodium, Plasma 140 136 - 145 mmol/L 12/15/2024 11:55 PM EDT [facility] Potassium, Plasma 3.9 3.6 - 4.9 mmol/L 12/15/2024 11:55 PM EDT [facility] Chloride, Plasma 100 97 - 107 mmol/L 12/15/2024 11:55 PM EDT [facility] CO2, Plasma 28 22 - 29 mmol/L 12/15/2024 11:55 PM EDT [facility] Anion Gap 12 6 - 16 mmol/L 12/15/2024 11:55 PM EDT [facility] Total Calcium, Plasma 9.1 8.9 - 10.2 mg/dL 12/15/2024 11:55 PM EDT [facility] Total Protein 7.1 6.3 - 7.9 g/dL 12/15/2024 11:55 PM EDT [facility] Albumin, Plasma 3.2(L) 3.5 - 5.2 g/dL 12/15/2024 11:55 PM EDT [facility] AST, Plasma 16 10 - 35 U/L 12/15/2024 11:55 PM EDT [facility] ALT, Plasma 8(L) 10 - 35 U/L 12/15/2024 11:55 PM EDT [facility] Alkaline Phosphatase, Plasma 85 46 - 142 U/L 12/15/2024 11:55 PM EDT [facility] Total Bilirubin, Plasma 0.5 0.2 - 1.1 mg/dL 12/15/2024 11:55 PM EDT [facility] eGFRcr 39.4 mL/min/1.7 3m*2 12/15/2024 11:55 PM EDT [facility] Comment:Reported eGFRcr in m L/min/1.73m2 is based the CKD-EPI 2020 equation that does not use a race coefficient. Blood Venous blood specimen / Unknown Venipuncture / Unknown 12/15/2024 11:18 PM EDT 12/15/2024 11:23 PM EDT us Balwinder Lock MD LAB BLOOD ORDERABLES Final Resul t [facility] [address] [place] [address] * XR Chest 1 View (12/15/2024 10:01 [...] ECG Atrial Rate 95 BPM MUSE ECG ME Interval 126 ms MUSE ECG QRSD Interval 86 ms MUSE ECG QT Interval 366 ms MUSE ECG QTC Interval 459 ms MUSE ECG P [place] 75 degrees MUSE ECG R [place] 9 degrees MUSE ECG T Wave [place] 67 degrees MUSE ECG Diagnosis Sinus rhythm [...] bronchus and lung, unspecified site Incisional infection Incisional infection documented in this encounter Admitting [...] Until Corrina 12/22/24 at 1743, Routine, itching Given 12/19/2024 2:14 [...] EDT 100 mg Ri ght Lower Abdomen FLUoxetine (PROzac) capsule 40 mg [...] on Thu12/19/24 at 2100, Until Discontinued, Routine ipratropium-albuterol (Duo-Neb) 0.5-2.5 mg/3 mL nebulizer solution 3 mL 3 mL, Nebulization, Every 6 hours PRN, Starting on Thu12/16/24 at 0631, Until Thu12/22/24 at 1743, Routine, shortness of breath, wheezing levETIRAcetam (Keppra) tablet 1,000 mg 1,000 mg, Oral, 2 times daily, First dose on Thu12/16/24 at 2100, Until Discontinued, Routine Given 12/22/2024 9:16 AM EDT 1,000 mg Given 12/21/2024 9:21 PM EDT 1,000 mg Given 12/21/2024 9:41 AM EDT 1,000 mg metoprolol tartrate (Lopressor) tablet 50 mg 50 mg, Oral, 3 times daily, First dose (after last modification) on Thu12/21/24 at 1600, Until Discontinued, Routine Given 12/22/2024 9:17 AM EDT 50 mg Given 12/21/2024 9:21 PM EDT 50 mg Given 12/21/2024 5:52 PM EDT 50 mg mometasone-formoterol (Dulera 200) 200-5 [...] Given 12/19/2024 8:56 PM EDT 10 mg oxyCODONE (Roxicodone) immediate [...] Given 12/20/2024 9:55 AM EDT 40 mg sodium chloride 0.9 % flush 10 [...] if any blood seen in tubing. Tiotropium [place] Monohydrate (Spiriva Respimat) 2.5 MCG/ACT inhaler 2 puff 2 puff, Inhalation, Daily, First dose on Thu12/16/24 at 0900, Until Discontinued Given 12/22/2024 9:20 AM EDT 2 puffs Given 12/21/2024 9:41 AM EDT 2 puffs Given 12/20/2024 9:56 AM EDT 2 puffs vancomycin (Vancocin) vial for injection As needed, Starting on Thu12/16/24 at 1358, Until Thu12/16/24 at 1428, Routine, Intraprocedure Given 12/16/2024 1:58 PM EDT 1 g documented in this encounter Active and Recently [...] Vera RN - Reason: Order parameters not met)123 (Not Given - Provider: Emily Vera RN [...] on Thu12/19/24 at 2100, Until Discontinued, Routine 0221 (Not Given - Provider: Rufus Florez RN [...] on Thu12/21/24 at 1600, Until Discontinued, Routine 175 (Given - Provider: Emily Vrea RN - Comment: [facility] care)2120 (Given - Provider: Rufus [...] RN)2031 (Given - Provider: Rufus Florez RN) 938 (Given - Provider: Emily Vera RN)2121 (Given [...] RN)2028 (Given - Provider: Rufus Florez RN) 09 [...] Provider: Rufus Florez RN - Comment: care [facility]) sodium chloride 0.9 % flush 10 mL 10 mL, Intravenous, Every 12 hours, First dose on Thu12/19/24 at 0100, Until Discontinued, Routine 0220 (Given - Provider: Rufus Florez RN)1209 (Given - Provider: Daphnie Perez RN) 0106 (Given - Provider: uRfus Florez RN)1233 (Given - Provider: Emily Vera [...] Reason: Order changed) 0942 (Given - Provider: mEily Vera RN)2122 (Given - Provider: Rufus Florez RN) 0919 (Given - Provider: Quentin Montoya RN) Tiotropium [place] Monohydrate (Spiriva Respimat) 2.5 MCG/ACT inhaler 2 puff(Linked Group 1) 2 puff, Inhalation, Daily, First dose on Thu12/16/24 at 0900, Until Discontinued 0956 (Given - Provider: Daphnie Perez RN) 0941 (Given - Provider: Emily Vera, JOSE MARTIN) 0920 (Given - Provider: Quentin Montoya RN) [...] Rufus Florez RN)1904 (Handoff - Provider: Daphnie Perez RN)1917 (New Bag - Provider: Rufus Florez, JOSE MARTIN)2015 (Rate/Dose Verify - Provider: Rufus Florez RN) 0150 (New Bag - Provider: Rufus Florez RN)0400 (Rate/Dose Verify - Provider: Rufus Florez RN)0719 (Handoff - Provider: Rufus Florez RN)0933 (New Bag - Provider: Emily Vera RN)1144 (Stopped - Provider: Emily Vera RN) PRN [...] PRN, Starting on Thu12/16/24 at 0631, Until Corrina 12/22/24 at 1743, Routine, shortness of breath, wheezing [...] Corrina 12/22/24 at 1743, Routine, moderate pain 1059 (See Alternative - Provider: Greer Veliz RN) prochlorperazine (Compazine) tablet 10 mg 10 mg, [...] tubing. 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 12/16/2024 12/22/2024 Assessment Noted Time PHQ-9 Depression Total Score: 0 09/01/19 25 3:26 PM EDT A fall risk assessment has been complete d for the patient 11/29/2024 1:14 PM EDT A Body Mass Index follow-up plan has been documented for the patient 12/22/2024 2:34 PM EDT documented as of this encounter Care Teams Door And Arrival Attendant Relationship Specialty Start Date End Date Laurie Gutierrez MD [address] [place] [address] PCP - General 12/09/23 Joshua Martínez MD [address] [place] [phone] Consulting Physician Radiation Oncology 09/19/24 Sabine Morales LPN TCM Nurse 11/23/24 12/23/24 documented as of this encounter
--- OUTSIDE RECORDS SUMMARY | 2024-12-16 13:31 | XMS_ITS | Encounter Summary ---
Author Organization [facility] Address [address] [place] [address] Care Team Providers Care Reinforced Ironworker Name Role Phone Laurie Gutierrez MD Primary Care Provider [phone] Joshua Martínez MD Unavailable Sabine Morales LPN Unavailable Unavailable Reason for Visit * Auth/Cert (Routine) Specialty Diagnoses / Procedures Referred By Contac t Referred To Contact Diagnoses Dyspnea History of lung cancer Atrial fibrillation with RVR (CMS/HCC) Incisional infection Multiple subsegmental pulmonary emboli without acute cor pulmonale (CMS/HCC) Ry Stewart MD [address] [place] [address] Phone: tel: fax: [facility] H Inpatient [address] [place] [address] Phone: tel: Referral ID Status Reason Start Date Expiration Date Visits Re quested Visits Authorized [id number] 1 1 Encounter Details Date Type Department Care Team (Late st Contact Info) Description 12/16/2024 1:31 PM EDT Anesthesia Event [facility] A OPERATING ROOM [address] [place] [address] Lavon Garcia MD [address] [facility] [address] [place] [phone] Kasey Lock PA [address] [place] [phone] Anesthesia Record Procedure Summary Procedure Name Responsible Anesthesiologist Anesthesia Start Time Anesthesia Stop Time IRRIGATION AND DEBRIDEMENT, WOUND (Left: Head) Lavon Garcia MD 12/16/24 1331 12/16/24 1429 Events Date Time Event Comment 12/16/2024 1330 In Room 1331 An Start The patient was reevaluated immediately before sedation and remains eligible for anesthesia plan. 1331 An Start Data 1337 An Induction The patient was reevaluated immediately before moderate or deep sedation use and before anesthesia induction. 1340 An Intubation 1341 Anesthesia Ready 1353 Proc Start 1416 Proc Fin 1420 An Extubation 1423 Out of Room 1423 an stop data 1428 Handoff to Receiving I compl eted my handoff to the receiving clinician during which we: 1. Identified the patient 2. Identified the responsible provider 3. Reviewed the pertinent medical history 4. Discussed the surgical course 5. Reviewed intra-op anesthesia management and issues during anesthesia 6. Set expectations for post-procedure period 7. Allowed opportunity for questions and acknowledgement of understanding. 1429 An Stop Meds Name Total propofol (Diprivan) injection 10 mg/mL 1 40 mg fentaNYL (Sublimaze) injection 50 mcg/mL 100 mcg lidocaine PF (Xylocaine-MPF) 2% 40 mg rocuronium (ZeMuron) injection 10 mg/mL 50 mg dexamethasone (Decadron) injection 4 mg/ mL 4 mg phenylephrine (Dandre-Synephrine) prefilled syringe 1 mg/10 mL 600 mcg ondansetron (Zofran) injection 2 mg/mL 4 mg sugammadex (Bridion) injection 100 mg/mL 200 mg ceFAZolin (Ancef) injection 2 g 2 g esmolol (Brevibloc) injection 10 mg/mL 4 0 mg sodium chloride 0.9 % infusion 500 mL * Agents No agents on file. * Blood No blood administrations on file. Lines, Drains, and Airways Type Details Placement Removal Wound 12/16/24; 1353; N; Y es; Surgical; Closed Surgi; Head; Left, Posterior, Upper 12/16/24 1353 by Yessenia Telles RN Wound 12/04/24; 0136; Y; Surgical; Face; Left, Upper; Old crani site; 12/16/24; 1353; Other (new surgical site) 12/04/24 0136 by Erma Cary RN 12/16/24 1353 by Yessenia Telles RN Peripheral IV Placement Date: 06/11; Catheter Size: 20 G; Orientation: Anterior, Right; Location: Forearm; Site Prep: Chlorhexidine ; Technique: Ultrasound guidance; Inserted by: js donovan rn; Removal Date: 12/17/24; Removal Time: 2144; Removal Reason: Per patient/family request 12/16/24 0000 by Donna Donovan RN 12/17/242144 by Mitzi Porter RN Peripheral IV Placement Date: 06/11; Placement Time: 517; Catheter Size: 22 G; Orientation: Anterior, Distal, Left; Location: Forearm; Site Prep: Chlorhexidine ; Technique: Anatomical landmarks; Inserted by: torres zapata; Insertion Attempts: 1; Patient Tolerance: Tolerated well; Removal Date: 12/17/24; Removal Time: 1747; Removal Reason: Infiltrated 12/16/24517 by Brad Driver RN 12/17/241747 by Sasha Hussein ETT Placement Date: 06/11; Placement Time: 1339 (created via procedure documentation); Mask Ventilation: 1; Technique: Direct laryngoscopy; Type: ETT - single; Single Lumen Tube Size: 7.5 mm; Cuffed: Yes; Laryngoscope: Myla; Blade Size: 3; Location: Oral; Grade View: Grade I; Insertion Attempts: 1; Placement Verification: Auscultation, Capnometry; Airway Comments: Bilateral Breath Sounds, (+) ETCO2, Atraumatic, No change to dentition. ; Placed by: Resident ; Removal Date: 12/16/24; Removal Time: 1420 12/16/24 1340 by Maikol Ferguson DO 12/16/24 1420 by Maikol Ferguson DO documented in this encounter Social History Tobacco [...] any time in the past 12 m ont, were you homeless or living in a [place] facility (including now)? 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 Wish to be (Past 1 Month) No 025 8:00 AM EDT Sasha Hussein 2. Non-Specific Active Suici radha Thoughts (Past 1 Month) No 12/17/2024 8:00 AM EDT Sasha Hussein 6. Suicidal Behavior (Lifetime) No 8:00 AM EDT Sasha Hussein documented as of this encounter Miscellaneous Notes * Anesthesia Postprocedure Evaluation - Maikol Ferguson DO - 12/16/2024 2:29 PM EDT Patient: Teresa Rivera Anesthesia Type: general Vitals Value Taken Time BP 133/69 12/16/24 14:25 Temp 36.8 12/16/24 14:29 Pulse 81 12/16/24 14:28 Resp 11 12/16/24 14:28 SpO2 100 % 12/16/24 14:28 Vitals shown include unfiled device data. Anesthesia Post Evaluation Patient location during evaluation: PACU Patient participation: complete - patient participated Level of consciousness: awake Pain management: adequate (pain score 0-3) Airway patency: natural airway Cardiovascular status: acceptable and hemodynamically stable Respiratory status: acceptable, blow-by oxygen and face mask Hydration status: acceptable Nausea/Vomiting: No No notable events documented. Cosigned by Lavon Garcia MD at 12/17/2024 2:25 PM EDT Associated attestation - Lavon Garcia MD - 12/17/2024 2:25 PM EDT I agree with the findings and care plan documented in the postprocedure evaluation note. * Anesthesia Procedure Notes - Maikol Ferguson DO - 12/16/2024 1:48 PM EDT Associated Order(s): Airway Airway Date/Time: 12/16/2024 1:40 PM Reason: elective Airway not difficult General Information and Staff Patient location during procedure: OR Anesthesiologist: Lavon Garcia MD Resident: Maikol Ferguson DO Performed: Resident Patient Condition Indications for airway management: anesthesia Patient position: sniffing Final Airway Details Final airway type: endotracheal airway Successful airway: ETT Cuffed: yes Successful intubation technique: direct laryngoscopy Adjuncts used in placement: intubating stylet Endotracheal tube insertion site: oral Blade: Myla Blade size: #3 ETT size (mm): 7.5 Cormack-Lehane Classification: grade I - full view of glottis Placement verified by: chest auscultation and capnometry Measured from: teeth ETT to teeth (cm): 21 Additional Comments Bilateral Breath Sounds, (+) ETCO2, Atraumatic, No change to dentition. Cosigned by Lavon Garcia MD at 12/17/2024 2:38 PM EDT Associated attestation - Lavon Garcia MD - 12/17/2024 2:38 PM EDT I was present during all critical and cabral portions of the procedure(s) and immediately available [facility] services the entire duration. See resident note for details. * Anesthesia Preprocedure Evaluation - Lavon Garcia MD - 12/16/2024 7:44 AM EDT Images from the original note were not included. Procedure Information Date/Time: 12/16/24 1505 Procedure: IRRIGATION AND DEBRIDEMENT, WOUND (Left: Head) Location: [facility] OR / [facility] OR Surgeons: Abhilash Bangura MD AMANUEL Rivera is a 64 y.o. female with body mass index is 39.02 kg/m??. who presents with Dyspnea (acute on chronic resp failure with concern for postobstructive pneumonia) and concern for craniotomy site infection, now for above procedure. Also with Bilateral segmental and subsegmental pulmonary emboli w/o right heart strain (on CT PE 12/16), pt on baseline 3L NC. 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 Mag 1.0, received 4g IV, recheck pending AIRWAY HISTORY: Date Difficult Airway Blade Size ETT Size C-L Class Final Type Intubation Method 09/05/24 No 3 7.0 grade I - full view of glottis endotracheal airway direct laryngoscopy 11/20/23 No 2 7.5 grade I - full view of glottis endotracheal airway direct laryngoscopy NPO STATUS: Activity Level/METS: Type & Screen Expires: ORDERED Lab Results Component Value Date ABO O Positive 11/30/2024 ALLERGIES Allergies[1] MEDICATIONS Outpatient Current Outpatient Medications Medication Instructions acetaminophen (TYLENOL) 650 mg, Oral, Every 6 hours scheduled, Under [place] law, monthly prescriptions (30 days) can be refilled at 25 days and three-month prescriptions (90 days) at 80 days. Please contact the insurance company with questions if refills are denied. atorvastatin (LIPITOR) 40 mg, Every evening Imewvfn-Xelmwsjxcge-Nnksmsmmav (Breztri Aerosphere) 160-9-4.8 MCG/ACT aerosol 2 puffs, [...] 399=12units max of 36units daily nystatin (Mycostatin) 513446 UNIT/GM powder Apply on bottom 2 times [...] 1000 MCG tablet controlled-release 1 tablet, Daily Scheduled Current Scheduled Medications[2] PRNs Current PRN Medications[3] SURGICAL HX: Surgical History[4] SOCIAL HX: Social History[5] OBJECTIVE DATA Blood pressure 111/51, pulse 96, temperature 36.7 ??C (98 ??F), resp. rate 18, weight 113 kg (249 lb 1.9 oz), SpO2 96%. LABS Lab Results Component Value Date WBC 9.08 12/16/2024 HGB 8.0 (L) 12/16/2024 HCT 25.6 (L) 12/16/2024 MCV 95 12/16/2024 PLT 187 12/16/2024 Lab Results Component Value Date CALCIUM 9.0 12/16/2024 BUN 18 12/16/2024 CREATININE 1.50 (H) 12/16/2024 BCR 12 12/16/2024 NA 138 12/16/2024 K 3.8 12/16/2024 CL 100 12/16/2024 CO2 24 12/16/2024 ANIONGAP 14 12/16/2024 INR Date Value Ref Range Status 12/16/2024 1.2 (H) 0.9 - 1.1 Final Lab Results Component Value Date HGBA1C 6.3 (H) 09/02/2024 GLUCOSE 168 (H) 12/16/2024 ABG No results found for: PHART , AWZ8TIK , PO2ART , SO2ART , BEART , GCT1ARC , HCTART , SODIUMART , POTASSIUMART , POCTCL , POCGLU , IONCALART , LACTATE Lab Results Component Value Date HCTSYR 23.4 (L) 12/15/2024 KSYR 3.8 12/15/2024 CLSYR 100 12/15/2024 GLUSYR 126 (H) 12/15/2024 CAION 4.7 12/15/2024 EKG Encounter Date: 12/15/24 ECG Adult Result Value EKG DIAGNOSIS CLASS Abnormal Ventricular Rate 150 QRSD Interval 86 QT Interval 314 QTC Interval 496 R Purdy 9 T Wave Purdy 62 Diagnosis Atrial fibrillation with rapid ventricular response Diagnosis Nonspecific ST and T wave abnormality Diagnosis Abnormal ECG *Note: Due to a large number of results and/or encounters for the requested time period, some results have not been displayed. A complete set of results can be found in Results Review. ECHO Echo, Adult Transthoracic Complete Result Date: 12/08/2024 Left Ventricle: The left ventricle is normal [...] is no recent study available for direct bjmd-jn-ckdh comparison. 12/16/[address] Angio Pulmonary Embolism (Final result) View Image Impression Bilateral segmental and subsegmental pulmonary emboli with greatest involvement in the right lower lobe. No right heart strain. Increased size of right upper paramediastinal soft tissue lung mass in the region of prior malignancy is highly concerning for disease recurrence. Increased size of right upper paratracheal lymph node raises concern for metastatic involvement. Nodular consolidation within the posterior superior righ t upper lobe likely relating to postobstructive pneumonia. Physical Exam Airway Mallampati: III Cardiovascular Rhythm: regular Rate: normal Dental (+) upper dentures Pulmonary (+) rhonchi, decreased breath sounds Neurological Oriented: normal to time, normal to place and normal to person and oriented to person, place and time Skin Skin: warm and dry Musculoskeletal - normal exam Extremities Anesthesia Plan ASA 3 Plan was reviewed with: HISTOLOGIST Anesthesia technique(s) discussed with the patient/family: general Anesthesia plan agreed upon was: general Anesthetic plan and risks discussed with patient. ROS Anesthesia: history of previous anesthesia and history of anesthetic complications (post op nausea, no vomiting. no other issues). Cardiovascular: atrial fibrillation (pafib s/p ablation on xarelto at home (has been on hold due to SDH)), CHF and history of anticoagulation therapy. Does not have past VA. hypertension: is well controlled. Does not have chest pain. Respiratory: lung cancer (diagnosed w/ small cell lung cancer 07/2023 s/p chemo, radiation). Does not have home oxygen. no asthma: COPD: breathing at baseline. HEENT: missing teeth (no top teeth, missing bottom molars bilaterally).Does not have chipped teeth or loose teeth. Neurological: no seizures: Did not have a cerebrovascular accident. Musculoskeletal: Does not have cervical spine instability or cervical spine limited mobility. Gastrointestinal: Does not have GERD.Does not have end stage liver disease. Genitourinary: Does not have chronic renal disease. Hematological/Lymphatic: History of no DVT. History of pulmonary embolism. Received anticoagulation therapy. history of chemotherapy without cardiopulmonary complications. history of radiation without cardiopulmonary complications. Hem/Lymph ROS additional comments: Previously xarelto, off for a few months, had heparin drip from 0854-4549 this AM Endocrine/Metabolic: diabetes mellitus type 2. 6.3 Does not have thyroid disorder. [1] Allergies Allergen Reactions Cephalexin Nausea and Vomiting Lisinopril Cough Meloxicam Nausea [2] atorvastatin, 40 mg, Oral, q PM cetirizine, 10 mg, Oral, Daily insulin glargine-yfgn, 5 Units, Subcutaneous, Nightly magnesium sulfate, 4 g, Intravenous, q4h metoprolol tartrate, 25 mg, Oral, TID Tiotropium Brandywine Monohydrate, 2 puff, Inhalation, Daily AND mometasone- formoterol, 2 puff, Inhalation, BID pantoprazole, 40 mg, Oral, Daily piperacillin-tazobactam, 4.5 g, Intravenous, q6h Insert peripheral IV, , , Once AND Saline lock IV, , , Once AND sodium chloride, 10 mL, Intravenous, q12h AND sodium chloride, 10 mL, Intravenous, PRN [3] PRN medications: glucose OR dextrose 10 % OR dextrose 10 % OR glucagon (human recombinant), ipratropium-albuterol, prochlorperazine, Insert peripheral IV AND Saline lock IV AND sodium chloride AND sodium chloride [4] Past Surgical History: Procedure Laterality Date BRAIN SURGERY TUBAL LIGATION N/A Tubal Ligation from [place] TYMPANOSTOMY TUBE PLACEMENT N/A Ear Surgery Eustachian Tube from [place] [5] Social History Tobacco Use Smoking status: Former Current packs/day: 0.00 Average packs/day: 1.5 packs/day for 48.4 years (72.6 ttl pk-yrs) Types: Cigarettes Start date: 1975 Quit date: 10/17/2023 Years since quittin.1 Passive exposure: Past Smokeless tobacco: Never Vaping Use Vaping status: Never Used Substance Use Topics Alcohol use: Never Drug use: Never documented in this encounter Plan of Treatment Upcoming Encounters Date Type Department Care Team (Late st Contact Info) Description 02/21/2025 8:45 AM EDT Clinical Support [facility] [address] [facility] [address] [place] [address] 02/21/2025 9:20 AM EDT Office Visit [facility] [address] [phone] Satnam Colvin MD 800 [facility] [address] [place] [phone] 02/21/2025 11:00 AM EDT Appointment [facility] 1 [address] [place] [phone] 02/22/2025 2:30 PM EDT Appointment [facility] 1 [address] [place] [address] 02/23/2025 3:30 PM EDT Appointment [facility] 1 [address] [place] [phone] 03/08/2025 1:00 PM EDT Office Visit [facility] [place] [address] [facility]. [address] [place] [address] Teresita Oconnell MD [address] [place] [phone] 03/10/2025 2:20 PM EDT Appointment [facility] [address] [place] [address] 03/10/2025 3:45 PM EDT Appointment [facility] S Radiology [address] [place] [phone] 03/14/2025 11:00 AM EDT Office Visit [facility] [address] [facility], [address] [place] [phone] Satnam Colvin MD [address] [facility] [address] [place] [address] documented as of this encounter Procedures Procedure Name Priority Date/Time Associated Diagnosis Comments PB ANESTHESIA PLACEHOLDER Routine 12/16/2024 1:40 PM EDT RI AN ELECTIVE ENDOTRACHEAL AIRWAY Routine 12/16/2024 1:40 PM EDT documented in this encounter Results * RI AN ELECTIVE ENDOTRACHEAL AIRWAY, PB ANESTHESIA PLACEHOLDER (12/16/2024 1:40 PM EDT) Narrative Lavon Garcia MD - 12/16/2024 1:40 PM EDT Lavon Garcia MD 12/17/2024 2:38 PM Airway Date/Time: 12/16/2024 1:40 PM Reason: elective Airway not difficult General Information and Staff Patient location during procedure: OR Anesthesiologist: Lavon Garcia MD Resident: Maikol Ferguson DO Performed: Resident Patient Condition Indications for airway management: anesthesia Patient position: sniffing Final Airway Details Final airway type: endotracheal airway Successful airway: ETT Cuffed: yes Successful intubation technique: direct laryngoscopy Adjuncts used in placement: intubating stylet Endotracheal tube insertion site: oral Blade: Myla Blade size: #3 ETT size (mm): 7.5 Cormack-Lehane Classification: grade I - full view of glottis Placement verified by: chest auscultation and capnometry Measured from: teeth ETT to teeth (cm): 21 Additional Comments Bilateral Breath Sounds, (+) ETCO2, Atraumatic, No change to dentition. us Lavon Garcia MD ANESTHESIA ORDERABLES F inal Result documented in this encounter Visit Diagnoses Not on filedocumented in this encounter Administered Medications Inactive Administered Medications - up to 3 most recent administrations Medication Order MAR Action Action Date Dose Rate Site ceFAZolin (Ancef) injection 2 g 2 g, Intravenous, Once, 1 dose, On Thu12/16/24 at 1445, Routine, Anesthesia Intraprocedure Given 12/16/2024 1:50 PM EDT 2 g dexamethasone (Decadron) injection Intravenous, As needed, Starting on Thu12/16/24 at 1353, Until Thu12/16/24 at 1429, Routine, Anesthesia Intraprocedure Given 12/16/2024 1:53 PM EDT 4 mg esmolol (Brevibloc) injection Intravenous, As needed, Starting on Thu12/16/24 at 1415, Until Thu12/16/24 at 1429, Routine, Anesthesia Intraprocedure Given 12/16/2024 2:15 PM EDT 40 mg fentaNYL (Sublimaze) injection Intravenous, As needed, Starting on Thu12/16/24 at 1337, Until Thu12/16/24 at 1429, Routine, Anesthesia Intraprocedure Given 12/16/2024 1:37 PM EDT 100 mcg lidocaine PF (Xylocaine) 2 % injection Intravenous, As needed, Starting on Thu12/16/24 at 1337, Until Thu12/16/24 at 1429, Routine, Anesthesia Intraprocedure Given 12/16/2024 1:37 PM EDT 40 mg ondansetron (Zofran) injection Intravenous, As needed, Starting on Thu12/16/24 at 1407, Until Thu12/16/24 at 1429, Routine, Anesthesia Intraprocedure Given 12/16/2024 2:07 PM EDT 4 mg phenylephrine in NS (Dandre-Synephrine) 100 mcg/mL prefilled syringe Intravenous, As needed, Starting on Thu12/16/24 at 1347, Until Thu12/16/24 at 1429, Routine, Anesthesia Intraprocedure Given 12/16/2024 2:05 PM EDT 200 mcg Given 12/16/2024 2:00 PM EDT 200 mcg Given 12/16/2024 1:47 PM EDT 200 mcg propofol (Diprivan) injection Intravenous, As needed, Starting on Thu12/16/24 at 1337, Until Thu12/16/24 at 1429, Routine, Anesthesia Intraprocedure Given 12/16/2024 1:37 PM EDT 140 mg rocuronium (ZeMuron) injection Intravenous, As needed, Starting on Thu12/16/24 at 1337, Until Thu12/16/24 at 1429, Routine, Anesthesia Intraprocedure Given 12/16/2024 1:37 PM EDT 50 mg sodium chloride 0.9 % infusion Intravenous, Continuous PRN, Starting on Thu12/16/24 at 1331, Until Thu12/16/24 at 1429, Routine New Bag 12/16/2024 1:31 PM EDT sugammadex (Bridion) 100 MG/ML injection Intravenous, As needed, Starting on Thu12/16/24 at 1414, Until Thu12/16/24 at 1429, Routine, Anesthesia Intraprocedure Given 12/16/2024 2:14 PM EDT 200 mg documented in this encounter Additional Health Concerns Infection Onset Date Last Indicated Resolved Time 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, 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/26/2024 10/31/2024 Assessment Noted Time PHQ-9 Depression Total Score: 0 09/01/19 25 3:26 PM EDT A fall risk assessment has been complete d for the patient 11/29/2024 1:14 PM EDT A Body Mass Index follow-up plan has been documented for the patient 12/22/2024 2:34 PM EDT documented as of this encounter Care Teams Reinforced Ironworker Relationship Specialty Start Date End Date Laurie Gutierrez MD [address] [place] [address] PCP - General 12/09/23 Joshua Martínez MD [address] [place] [phone] Consulting Physician Radiation Oncology 09/19/24 Sabine Morales LPN TCM Nurse 11/23/24 12/23/24 documented as of this encounter
--- OUTSIDE RECORDS SUMMARY | 2024-12-21 04:00 | XMS_ITS ---
Author Organization [facility] [place] [address] Care Team Providers Care Pin Machine Operator Name Role Phone MUNA DEY Unavailable [phone] Muna Dey MD Unavailable Unavailable Yamilet Coleman Unavailable [phone] REASON FOR VISIT 1 week f/u IN HOP Encounters Encounter Location Date Provider Diagnosis [facility] [place] [address] [place] [address] 12/21/2024 Yamilet Coleman Plan Of Treatment Next Appt Details Provider Name:Yamilet heath, 02/27/2025 10:30:00 AM, [address], [place], [address], Progress Notes * Teresa URBINADOB: [birth year] (64 yo F)Acc No.[id number]:12/21/2024 Progress Notes Patient: Isis Teresa REY Provider: Carolyn Coleman :1960 A ge:64 Y S ex:Female Date:12/21/2024 Address:[address] [place] [address], [place] [id number] Subjective: * Chief Complaints: * 1 . 1 week f/u IN HOP. * Medical History: Objective: * Vitals: Assessment: Plan: * Treatment: * * Electronic signature of CAPO Ellis on 02/10/2025 at 01:39 PM EDT Sign off status: Pending * Provider: Carolyn Coleman Date: 0 12/21/2024 Generated for Chato gonzalez/Nica/Edwardo on: 0 02/10/2025 01:39 PM EDT
--- OUTSIDE RECORDS SUMMARY | 2024-12-31 12:55 | XMS_ITS | Encounter Summary ---
Author Organization [facility] Address [address] [place] [address] Care Team Providers Care Medicare Contact Specialist Name Role Phone Laurie Gutierrez MD Primary Care Provider [phone] Joshua Martínez MD Unavailable Reason for Visit * Reason Comments Vascular Access Problem Encounter Details Date Type Department Care Team (Late st Contact Info) Description 12/31/2024 12:55 PM EDT - 12/31/2024 4:03 PM EDT Emergency [facility] Emergency [facility] [address] [place] [address] Juwan Da Silva MD [address] [place] [address] Maribeth Mays DO [address] [place] [address] PIC line (peripherally inserted central [...] living in a detention (including now)? No 12/16/2024 CAGE ASSESSMENT Answer [...] drink first t laurie in the morning (EYE-BLOCK SAWYER) to steady your nerves or to get rid of a hangover? 0 12/02/2024 CAGE Questionnaire Score 0 025 Utilities Answer Date Recorded In the past 12 months has th [place], gas, oil, or water company threatened to [...] No Risk Indicated 12/31/2024 1:20 PM EDT Janette Yoon RN * Question Answer Date of Assessment Author 1. Wish to be (Past 1 Month) No 025 1:20 PM EDT StagerJanette RN 2. Non-Specific Active Suici radha Thoughts (Past 1 Month) No 12/31/2024 1:20 PM EDT StagerMarely RN 6. Suicidal Behavior (Lifetime) No 5 1:20 PM EDT StagerJanette RN documented as of this encounter Discharge [...] tablets by mouth every 6 hours. Under [place] law, monthly prescriptions (30 days) can be [...] of 36units daily 01/19/20 25 nystatin (Mycostatin) 770288 UNIT/GM powder Apply on bottom 2 times a day 30 g 5 01/19/20 25 triamterene-hydroch lorothiazide (Maxzide-25) 37.5-25 MG tablet Take 1 tablet by mouth every morning. 01/19/20 25 documented as of this encounter Miscellaneous Notes * ED Provider Notes - Marva Pickering DO - 12/31/2024 12:30 PM EDT Images from the original note were not included. - HPI Chief Complaint Patient presents with Vascular Access Problem PIT Note: Teresa Rivera is a 64 y.o. female who presents to the ED with vascular access problem. Pt reports her PICC line in the left arm is making weird whistling noises. Family member reports she took thePICC tubing off and the whistling noise persisted. She states she feels fatigued but no more than at baseline. She denies other medical complaints at this time. I assumed care of this patient. 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 Patient and patient's sister help provide the history. Patient's sister reports that this morning she started experiencingwith sling from her PICC line. She states that it was making a loud noise like a washing machine whistling sound. This occurred as soon as patient was connected to her IV cefepime. Patient's sister reports whenever she took the connection off, the whistling stopped. Patient denies any sort of painaround this area. She reports that she had the dressing changed yesterday. History provided by: Patient transportation consultant used: No Patient History Past Medical History[1] Surgical History[2] Family History[3] Social History[4] Allergies: Allergies[5] Physical Exam ED Triage Vitals [12/31/24 1240] Temp Heart Rate Resp BP 36.8 ??C (98.2 ??F) 76 18 108/64 SpO2 Temp Source Heart Rate Source Patient Position 96 % Oral -- -- BP Location FiO2 [...] General: There is no distension. Musculoskeletal: General: No deformity. Normal range of motion. Cervical back: Normal range of motion. Comments: Atraumatic, moves all extremities spontaneously Neurological: Mental Status: She is alert. Mental status is at baseline. Comments: Awake Psychiatric: Behavior: Behavior normal. No data recorded ED Course & MDM - Assessment: 64 y.o. female presents to ED with complaint of PICC line complication. 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 This complicates the clinical picture because it Comorbidities: may be exacerbating symptoms, increases the amount and complexity of data to be reviewed, complicates the clinical workup, and increases the risk for morbidity Differential Diagnosis: PICC line occlusion, PICC line displacement, PICC line dislodgement, cellulitis, abscess In order to fully explore the differential diagnosis the following treatments and tests were ordered: All Other Orders Ordered Status Ordering Provider 12/31/24 1515 Continuous Comments: Added via Instant Order OPA Canceled BPA, INSTANT ORDERS 12/31/24 1254 XR Chest 1 View One time imaging Final result DANIA RIVERO ED Course as of 12/31/241902 Sat Dec 31, 2024 1339 On initial assessment, patient is hemodynamically stable. She is in no acute distress at this time. There was no whistling appreciated from her PICC line. There is no erythema or swelling. There is no tenderness appreciated over the PICC line insertion site. I have very low suspicion and clinical concern for infection or inflammation of the area. I suspect most likely that the whistling noise they were hearing where his secondary to a connection issue as the sound has stopped since her medications were disconnected. [RM] 1353 XR Chest 1 View Personally reviewed by me, IMPRESSION: Left PICC terminates within upper right atrium. Retraction for [address] it close to superior cavoatrial junction. [RM] 1458 Nursing staff able to flush the PICC, able to connect her abx without whistling sound. [RM] 1533 Spoke with vascular access team who reports her PICC placement is okay and fine to use. [RM] 1552 On repeat assessment, patient is HDS. She is in no acute distress at this time. Counseled her on her PICC line being in good position and that she was safe to use it. It was felt at this time after the workup obtained today ruling out present emergent etiologies, patient was safe for discharge. Through shared decision making with patient, they were agreeable to this. Encouraged follow up with their primary care provider regarding this emergency department visit. Gave strict return precautions. Counseled on supportive care measures. She was agreeable and voiced understanding, all questions were answered to their satisfaction. Patient is hemodynamically stable and medically cleared for di fl[place] at this time. [RM] ED Course User Index [RM] Marva Pickering, DO Clinical Impressions as of 12/31/241902 PIC line (peripherally inserted central catheter) flush Social Determinates of Health Risks (including Economic Stability, Education and level of understanding, Healthcare access and quality and concerning social factors): None identified on this visit Ultimately, this patient was Was discharged Home (Discharge) The encounter diagnosis was PIC line (peripherally inserted central catheter) flush. . Patient was counseled on the diagnoses. Discharge medications if any are listed below. Listed medications are thought be either curative for listed diagnoses or will help control ongoing symptoms. Patient is requested to follow up with Patient's Primary Care Provider in order to obtain routine follow -up. Instructions on follow up as well as precautions to return to the ER provided verbally by the EM provider, as well as written in patients discharge education packet. ED Prescriptions None Discharge Instructions You were seen in the emergency department [...] shortness of breath or any other concern. Disposition Discharge AVS (Albanian Snapshot) - Printed 12/31/2024 Follow-Ups Schedule an appointment with Laurie Gutierrez MD Follow up with [facility] A Emergency Department (Emergency Medicine); If symptoms worsen - 12/31/2024, 7:03 PM Scribe Attestation: This note was dictated to me, Kiran Pierce, acting as a scribe for Dr. Dania Rivero M.D. Attending Attestation: This documentation was recorded by Kiran Pierce acting as a scribe in my presence at the time of the encounter and accurately reflects the service I personally performed and thedecisions made by me. [1] Past Medical History: Diagnosis Date A-fib ([facility]) Anxiety Brain tumor ([facility]) Chemotherapy-induced nausea and vomiting 08/28/2023 COPD (chronic obstructive pulmonary disease) ([facility]) Depression Heart failure Hyperlipidemia Hypertension Osteoarthritis Pneumonia Small cell lung cancer ([facility]) Type 2 diabetes mellitus [2] Past Surgical History: Procedure Laterality Date BRAIN SURGERY TUBAL LIGATION N/A Tubal Ligation from [facility] TYMPANOSTOMY TUBE PLACEMENT N/A Ear Surgery Eustachian Tube from [facility] [3] Family History Problem Relation Name Age of Onset No Known Problems Mother No Known Problems Father Diabetes Other Fibromyalgia Other [4] Tobacco Use Smoking status: Former Current packs/day: 0.00 Average packs/day: 1.5 packs/day for 48.4 years (72.6 ttl pk-yrs) Types: Cigarettes Start date: 1975 Quit date: 10/17/2023 Years since quittin.2 Passive exposure: Past Smokeless tobacco: Never Vaping Use Vaping status: Never Used Substance Use Topics Alcohol use: Never Drug use: Never [5] Allergies Allergen Reactions Cephalexin Nausea and Vomiting Lisinopril Cough Meloxicam Nausea Marva Pickering DO Resident 12/31/241902 Cosigned by Juwan Da Silva MD at 01/07/2025 12:12 PM EDT Associated attestation - Juwan Da Silva MD - 01/07/2025 12:12 PM EDT I saw and evaluated the patient with the resident/fellow. I discussed the case with the resident/fellow and agree with the findings and plan as documented. * ED Triage Notes - Belle Cortez [...] & Respiratory [address] [place] [address] 02/21/2025 9:20 AM EDT Office Visit [facility] [address] [place] [address] Satnam Colvin MD [address] [place] [address] 02/21/2025 11:00 AM EDT Appointment [facility] [address] [place] [phone] 02/22/2025 2:30 PM EDT Appointment [facility] [address] [place] [phone] 02/23/2025 3:30 PM EDT Appointment [facility] [address] [place] [phone] 03/08/2025 1:00 PM EDT Office Visit [facility] Danielson Wenceslao [address] [place] [phone] Teresita Oconnell MD [address] [place] [address] 03/10/2025 2:20 PM EDT Appointment [facility] [address] [place] [phone] 03/10/2025 3:45 PM EDT Appointment [facility] [address] [place] [address] 03/14/2025 11:00 AM EDT Office Visit [facility] [address] [place] [phone] Satnam Colvin MD [address] [place] [phone] documented as of this encounter Procedures Procedure [...] Berta Richardson MD on 12/31/2024 1:41 PM Dania Rivero MD IMG XR PROCEDURES Final Result documented in this encounter Visit Diagnoses Diagnosis PIC line (peripherally inserted central catheter) flush- Primary Fitting and adjustment of vascular catheter documented in this encounter Additional Health Concerns Infection Onset Date Last Indicated Resolved Time 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 12/16/2024 12/22/2024 Assessment Noted Time PHQ-9 Depression Total Score: 0 09/01/19 25 3:26 PM EDT A fall risk assessment has been complete d for the patient 11/29/2024 1:14 PM EDT A Body Mass Index follow-up plan has been documented for the patient 12/23/2024 8:17 AM EDT documented as of this encounter Care Teams Medicare Contact Specialist Relationship Specialty Start Date End Date Laurie Gutierrez MD [address] [place] [address] PCP - General 12/09/23 Joshua Martínez MD [address] [place] [phone] Consulting Physician Radiation Oncology 09/19/24 documented as of this encounter
--- OUTSIDE RECORDS SUMMARY | 2025-01-03 09:40 | XMS_ITS | Encounter Summary ---
Author Organization [facility] Address [address] [place] [address] Care Team Providers Care Body Service Team Member Name Role Phone Laurie Gutierrez MD Primary Care Provider Joshua Martínez MD Unavailable Reason for Visit * Reason Comments Follow-up Encounter Details Date Type Department Care Team ([facility] st Contact Info) Description 01/03/2025 9:40 AM EDT Office Visit [facility] Res[facility] [address] [facility], 2nd [place] [address] Satnam Colvin MD 800 [facility] [address] [place] [address] Extensive stage primary small cell carcinoma of [...] drink first t laurie in the morning (EYE-NURSES DIRECTOR) to steady your nerves or to [...] 10/04-10/06/24 Oncology History: - initially diagnosed with [id number], stage IIIA limited stage of the right [...] was changed to 50 twice daily short-acting [id number] for seizures while in the infusion room [...] acute kidney injury -End November to December 7 for craniotomy site infection and also found [...] images, labs, coordinating care and, 20 minutes hnny-ja-bzmo encounter. MD GIGI Man [facility] HEAD, NECK & RESPIRATORY [address] [place] [phone] [facility]. [1] Past Medical History: Diagnosis Date A-fib (CMS/HCC) Anxiety Brain tumor (CMS/HCC) Chemotherapy-induced nausea and vomiting 08/28/2023 COPD (chronic obstructive pulmonary disease) ([facility]/HCC) Depression Heart failure Hyperlipidemia Hypertension Osteoarthritis Pneumonia Small cell lung cancer (CMS/HCC) Type 2 diabetes mellitus [2] Past Surgical History: Procedure Laterality Date BRAIN SURGERY TUBAL LIGATION N/A Tubal Ligation from [facility] TYMPANOSTOMY TUBE PLACEMENT N/A Ear Surgery Eustachian Tube from [facility] [3] Family History Problem Relation Name Age [...] tablets by mouth every 6 hours. Under [place] law, monthly prescriptions (30 days) can be refilled at 25 days and three-month prescriptions (90 days) at80 days. Please contact the insurance company with questions if refills are denied., Disp: 100 tablet, Rfl: 0 atorvastatin (Lipitor) 40 MG tablet, Take 1 tablet by mouth every evening., Disp: , Rfl: Zgfmoyy-Utpcovgzhmm-Eupltlzoed (Breztri Aerosphere) 160-9-4.8 MCG/ACT aerosol, Inhale 2 [...] 36units daily, Disp: , Rfl: nystatin (Mycostatin) 322195 UNIT/GM powder, Apply on bottom 2 times [...] Encounters Date Type Department Care Team ([facility] st Contact Info) Description 02/21/2025 8:45 AM EDT Clinical Support [facility] Head[facility]ck [facility] Respiratory [address] [facility], 2nd [place] [address] 02/21/2025 9:20 AM EDT Office Visit [facility] Res[facility] [address] [facility], 2nd [place] [address] Satnam Colvin MD 800 [facility] [address] [place] [address] 02/21/2025 11:00 AM EDT Appointment [facility] [address] [place] [phone] 02/22/2025 2:30 PM EDT Appointment [facility] [address] [place] [phone] 02/23/2025 3:30 PM EDT Appointment [facility] [address] [place] [phone] 03/08/2025 1:00 PM EDT Office Visit [facility] [place] [address] [facility]. [address] [place] [address] Teresita Oconnell MD [address] [place] [address] 03/10/2025 2:20 PM EDT Appointment [facility] [address], [address]nd [place] [address] 03/10/2025 3:45 PM EDT Appointment [facility] Radiology [address], 1st [place] [address] 03/14/2025 11:00 AM EDT Office Visit [facility] Res[facility] [address] [facility], 2nd [place] [address] Satnam Colvin MD [address] [facility] [address] [place] [phone] Scheduled Orders Name Type Priority Associated Diagnoses [...] of lung Expected: 01/03/2025 (Approximate), Expires: 01/03/2026 documented as of this encounter Results * TSH reflex FT4 (01/10/2025 9:21 AM EDT) Thyroid Stimulating Hormone, Plasma 1.84 0.40 - 4.20 uIU/mL 01/10/2025 10:[address] [facility] Blood Venous blood specimen / Unknown Venipuncture / Unknown 01/10/2025 9:21 AM EDT 01/10/2025 9:27 AM EDT Satnam Dunne MD LAB BLOOD ORDERABLES Fi nal Result Performing Organization Address City/[facility] Co de Phone Number [facility] [address] [place] [address] * (ABNORMAL) Magnesium (01/10/2025 9:21 AM EDT) Magnesium, Plasma 1.4(L) 1.9 - 2.4 mg/dL 01/10/2025 10:[address] [facility] Blood Venous blood specimen / Unknown Venipuncture / Unknown 01/10/2025 9:21 AM EDT 01/10/2025 9:27 AM EDT Satnam Dunne MD LAB BLOOD ORDERABLES Fi nal Result Performing Organization Address [facility] de Phone Number [facility] [address] [place] [address] * (ABNORMAL) Comprehensive metabolic panel (01/10/2025 9:21 AM EDT) Glucose, Plasma 127(H) 74 - 99 mg/dL 01/10/2025 10:[address] [facility] BUN, Plasma 16 8 - 23 mg/dL 01/10/2025 10:[address] [facility] Creatinine, Plasma 0.88 0.60 - 1.10 mg/dL 01/10/2025 10:[address] [facility] BUN/Creatinine Ratio 18 01/10/2025 10:[address] [facility] Sodium, Plasma 141 136 - 145 mmol/L 01/10/2025 10:[address] [facility] Potassium, Plasma 3.9 3.6 - 4.9 mmol/L 01/10/2025 10:[address] [facility] Chloride, Plasma 115(H) 97 - 107 mmol/L 01/10/2025 10:[address] [facility] CO2, Plasma 16(L) 22 - 29 mmol/L 01/10/2025 10:[address] [facility] Anion Gap 10 6 - 16 mmol/L 01/10/2025 10:[address] [facility] Total Calcium, Plasma 9.4 8.9 - 10.2 mg/dL 01/10/2025 10:[address] [facility] Total Protein 7.2 6.3 - 7.9 g/dL 01/10/2025 10:[address] [facility] Albumin, Plasma 3.1(L) 3.5 - 5.2 g/dL 01/10/2025 10:[address] [facility] AST, Plasma 22 10 - 35 U/L 01/10/2025 10:[address] [facility] ALT, Plasma 13 10 - 35 U/L 01/10/2025 10:[address] [facility] Alkaline Phosphatase, Plasma 90 46 - 142 U/L 01/10/2025 10:[address] [facility] Total Bilirubin, Plasma 0.3 0.2 - 1.1 mg/dL 01/10/2025 10:[address] [facility] eGFRcr 73.5 mL/min/1.7 3m*2 01/10/2025 10:[address] [facility] Comment:Reported eGFRcr in m L/min/1.73m2 is based the CKD-EPI 2020 equation that does not use a race coefficient. Blood Venous blood specimen / Unknown Venipuncture / Unknown 01/10/2025 9:21 AM EDT 01/10/2025 9:27 AM EDT us Satnam Dunne MD LAB BLOOD ORDERABLES Fi nal Result [facility] [address] [place] [address] * (ABNORMAL) CBC and differential (01/10/2025 9:21 AM EDT) [facility] WBC Count 7.85 3.70 - 10.30 10*3/uL LAB HEMATOLOGY METHOD 01/10/2025 9:[address] [facility] RBC Count 3.03(L) 3.90 - 5.20 10*6/uL LAB HEMATOLOGY METHOD 01/10/2025 9:[address] [facility] HGB 9.4(L) 11.2 - 15.7 g/dL LAB HEMATOLOGY METHOD 01/10/2025 9:[address] [facility] HCT 30.2(L) 34.0 - 45.0 % LAB HEMATOLOGY METHOD 01/10/2025 9:[address] [facility] Platelet Count 142(L) 155 - 369 10*3/uL LAB HEMATOLOGY METHOD 01/10/2025 9:[address] [facility] MCV 100(H) 79 - 98 fL LAB HEMATOLOGY METHOD 01/10/2025 9:[address] [facility] MCH 31.0 26.0 - 32.0 pg LAB HEMATOLOGY METHOD 01/10/2025 9:[address] [facility] MCHC 31.1 30.7 - 35.5 g/dL LAB HEMATOLOGY METHOD 01/10/2025 9:[address] [facility] RDW 20.5(H) 11.5 - 14.5 % LAB HEMATOLOGY METHOD 01/10/2025 9:[address] [facility] MPV 10.2 8.8 - 12.5 fL LAB HEMATOLOGY METHOD 01/10/2025 9:[address] [facility] nRBC 0.0 <=0.0 per 100 WBCs LAB HEMATOLOGY METHOD 01/10/2025 9:[address] [facility] Differential Type Automated LAB HEMATOLOGY METHOD 01/10/2025 9:[address] [facility] Neutrophils % 74 % LAB HEMATOLOGY METHOD 01/10/2025 9:[address] [facility] Lymphocytes % 13 % LAB HEMATOLOGY METHOD 01/10/2025 9:[address] [facility] Monocytes % 7 % LAB HEMATOLOGY METHOD 01/10/2025 9:[address] [facility] Eosinophils % 4 % LAB HEMATOLOGY METHOD 01/10/2025 9:[address] [facility] Basophils % 1 % LAB HEMATOLOGY METHOD 01/10/2025 9:[address] [facility] Immature Granulocytes % 1 % LAB HEMATOLOGY METHOD 01/10/2025 9:[address] [facility] Neutrophils Absolute 5.86 1.60 - 6.10 10*3/uL LAB HEMATOLOGY METHOD 01/10/2025 9:[address] [facility] Lymphocytes Absolute 1.00(L) 1.20 - 3.90 10*3/uL LAB HEMATOLOGY METHOD 01/10/2025 9:[address] [facility] Monocytes Absolute 0.56 0.30 - 0.90 10*3/uL LAB HEMATOLOGY METHOD 01/10/2025 9:[address] [facility] Eosinophils Absolute 0.30 0.00 - 0.50 10*3/uL LAB HEMATOLOGY METHOD 01/10/2025 9:[address] [facility] Basophils Absolute 0.08 0.00 - 0.10 10*3/uL LAB HEMATOLOGY METHOD 01/10/2025 9:[address] [facility] Immature Granulocytes Absolute 0.05 0.00 - 0.06 10*3/uL LAB HEMATOLOGY METHOD 01/10/2025 9:[address] [facility] Blood Venous blood specimen / Unknown Venipuncture / Unknown 01/10/2025 9:21 AM EDT 01/10/2025 9:[address] [facility] - 01/10/2025 9:35 AM EDT Therapeutic decision making should be based on absolute values, rather than percentages. us Satnam Dunne MD LAB BLOOD ORDERABLES Fi nal Result 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 12/16/2024 12/22/2024 Assessment Noted Time PHQ-9 Depression Total Score: 0 09/01/19 25 3:26 PM EDT A fall risk assessment has been complete d for the patient 01/03/2025 9:25 AM EDT A Body Mass Index follow-up plan has been documented for the patient 12/23/2024 8:17 AM EDT documented as of this encounter Care Teams Body Service Team Member Relationship Specialty Start Date End Date Laurie Gutierrez MD [address] [place] [address] PCP - General 12/09/23 Joshua Martínez MD [address] [place], [place] [id number] [place] [address] Consulting Physician Radiation Oncology 09/19/24 documented as of this encounter
--- OUTSIDE RECORDS SUMMARY | 2025-01-04 20:07 | XMS_ITS | Encounter Summary ---
Author Organization [facility] Address [address] [place] [id number] Care Team Providers Care Bacteriology Technician Name Role Phone Laurie Gutierrez MD Primary Care Provider [phone] Joshua Martínez MD Unavailable Reason for Visit * Reason Comments PICC bleeding Encounter Details Date Type Department Care Team ([facility] st Contact Info) Description 01/04/2025 8:07 PM EDT - 01/04/2025 11:51 PM EDT Emergency [facility] Emergency Department [address] [place] [address] Brionna Hicks MD [address] [place] [phone] Radha Stokes MD [address] [place] [phone] Bleeding from PICC line, initial encounter (Primary Dx) Discharge Disposition: Home or Self Care Social History Tobacco Use Types Packs/Day Years Used Date Smoking Tobacco: Former Cigarettes 1.5 48.4 1 976 - 10/17/2023 Passive Smoke Exposure: Past Smokeless Tobacco: Never Alcohol Use Standard Drinks/Week Comments Never 0 (1 standard drink = 0.6 oz pur e alcohol) PHQ-2 Answer Date Recorded Patient Health Questionnaire-2 Score 0 01/05/2025 PHQ-9 Answer Date Recorded Patient Health Questionnaire-9 [...] living in a halfway (including now)? 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 0 12/02/2024 CAGE Questionnaire Score 0 025 Utilities Answer Date Recorded In the past 12 months has th J[employer], gas, oil, or water company threatened to [...] Sign Reading Time Taken Comments Blood Pressure 130/77 01/04/2025 11:51 PM EDT Pulse 62 01/04/2025 11:51 PM EDT Temperature 36.5 C (97.7 F) 01/04/2025 11:51 PM EDT Respiratory Rate 16 01/04/2025 11:51 PM EDT Oxygen Saturation 95% 01/04/2025 11:51 PM EDT Inhaled Oxygen Concentration - - Weight 113 kg (250 lb) 01/04/2025 7:18 PM EDT Height 170.2 cm (5' 7 ) 01/04/2025 7:18 PM EDT Body Mass Index 39.16 01/04/2025 7:18 PM EDT documented in this encounter Functional Status * Calculated C-SSRS Risk Score (Lifetime/Recent) Answer Date of Assessment Author No Risk Indicated 01/04/2025 8:53 PM EDT Agustina Simon * Question Answer Date of Assessment Author 1. Wish to be (Past 1 Month) No 025 8:53 PM EDT Agustina Simon 2. Non-Specific Active Suici radha Thoughts (Past 1 Month) No 01/04/2025 8:53 PM EDT Agustina Simon 6. Suicidal Behavior (Lifetime) No 5 8:53 PM EDT Agustina Simon documented as of this encounter Discharge Instructions * Discharge Instructions* Edin Chahal DO - 01/04/2025 10:10 PM EDT You were evaluated for bleeding around your PICC line. No acute concern for displacement was noted.If the PICC line area continues to bleed, becomes infected, or becomes painful please return to theED to have it evaluated. documented in this encounter Medications at Time [...] as needed. magnesium oxide (Mag-Ox) 400 MG tabletIndications:E xtensive stage primary small cell carcinoma of lung Take 1 tablet by mouth 2 times a day. Hold for diarrhea 60 tablet 1 5 metFORMIN (Glucophage) 1000 MG tablet Take 1 tablet by mouth 2 times a day with meals. metoprolol tartrate (Lopressor) 50 MG tablet Take 1 tablet by mouth 3 times a day. 90 tablet 1 5 montelukast (Singulair) 10 MG tablet Take 1 tablet by mouth nightly. OLANZapine (ZyPREXA) 5 MG tablet Take 1 tablet by mouth nightly. 30 tablet 2 5 ondansetron ODT (Zofran-ODT) 4 MG disintegrating [...] institutional policy. 1 each 5 02/02/20 25 acetaminophen (Tylenol) 325 MG tablet Take 2 tablets by mouth every 6 hours. Under [place] law, monthly prescriptions (30 days) can be [...] the skin nightly. 01/19/20 25 levETIRAcetam (Keppra) 750 MG tablet Take 1 tablet by mouth 2 times a day. 60 tablet 2 5 01/11/20 25 NovoLOG FLEXPEN 100 UNIT/ML injection pen Sliding scale three times a day with corrections and meals; BS 150-199=2units; BS 200-249=4units; BS 250-229=6units; 300-349=8 units; 350-399=10 units; anything greater than 399=12units max of 36units daily 01/19/20 25 nystatin (Mycostatin) 329760 UNIT/GM powder Apply on bottom 2 times a day 30 g 5 01/19/20 25 triamterene-hydroch lorothiazide (Maxzide-25) 37.5-25 MG tablet Take 1 tablet by mouth every morning. 01/19/20 25 documented as of this encounter Miscellaneous Notes * ED Provider Notes - Edin Chahal DO - 01/04/2025 6:58 PM EDT Images from the original note were not included. - HPI Chief Complaint Patient presents with PICC bleeding Teresa Rivera is a 64 y.o. 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 Pt c/o bleeding from PICC line LUE. Family states pt fell yesterday but did not notice bleeding until today when they were preparing to give patient a bath. Patients son reports he has to lift her frequently since she is very immobile and might have tugged on the dressing and PICC line causing the bleeding. The PICC stopped bleeding shortly after they noticed it. They states pt was evaluated for LUE and LLE soreness after fall at OSH but hospital would not evaluate PICC line. Patient was cleared and discharged from OSH without any concern for bleeding to the brain or any extremities from the fall. Pt being treatedfor skin infection currently of her infected scalp from previous washout with neurosurgery. PICC line is still patent and flushes appropriately. Patient has no other complaints at this time. form builder used: No Patient History Past Medical History[1] Surgical History[2] Family History[3] Social History[4] Allergies: Allergies[5] Physical Exam ED Triage Vitals [01/04/251917] Temp Heart Rate Resp BP 37 ??C (98.6 ??F) 74 18 102/68 SpO2 Temp Source Heart Rate Source Patient [...] baseline. Comments: Awake Psychiatric: Behavior: Behavior normal. - Assessment: 64 y.o. female presents to ED with complaint of bleeding around the PICC line. PICC line is still patent, flushes, and is in the appropriate position after confirming via CXR. 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 This complicates the clinical picture because it Comorbidities: may be exacerbating symptoms Differential Diagnosis: PICC line bleeding, PICC line displacement In order to fully explore the differential diagnosis the following treatments and tests were ordered: All Other Orders Ordered Status Ordering Provider 01/04/252225 Initiate contact isolation Continuous Comments: Added via Instant Order OPA Acknowledged BPA, INSTANT ORDERS 01/04/252219 XR Chest 1 View One time imaging Final result BRIONNA HICKS 01/04/251941 CBC w/diff STAT Final result STANISLAV ROSARIO Luís 01/04/251941 PT-INR STAT Final result STANISLAV ROSARIO S ED Course as of 01/04/252312Jan 04, 2025 221 Patient presented from bleeding around her PICC line. She was previously evaluated for PICC line displacement several days prior and was ultimately discharged home. The bleeding around the line stopped shortly after it was noticed. The area was cleaned and redressed in the ED. [PJ] ED Course User Index [PJ] Edin Chahal, Clinical Impressions as of 01/04/252312 Bleeding from PICC line, initial encounter Social Determinates of Health Risks (including Economic Stability, Education and level of understanding, Healthcare access and quality and concerning social factors): None identified on this visit Ultimately, this patient was Was discharged Home (Discharge) The encounter diagnosis was Bleeding from PICC line, initial encounter. . Patient was counseled on the diagnoses. Discharge medications if any are listed below. Listed medications are thought be either curative for listed diagnoses or will help control ongoing symptoms. Patient is requested to follow up with Patient's Primary Care Provider, Infectious Disease, and Neurosurgery in order to obtain specialty care. Instructions on follow up as well as precautions to return to the ER provided verbally by the EM provider, as well as written in patients discharge education packet. ED Prescriptions None Discharge Instructions You were evaluated for bleeding around your PICC line. No acute concern for displacement was noted.If the PICC line area continues to bleed, becomes infected, or becomes painful please return to theED to have it evaluated. Disposition Discharge Patient is to be discharged home and to follow up with ID in the outpatient setting. - [1] Past Medical History: Diagnosis Date A-fib (CMS/HCC) Anxiety Brain tumor (CMS/HCC) Chemotherapy-induced nausea and vomiting 08/28/2023 COPD (chronic obstructive pulmonary disease) (CMS/HCC) Depression Heart failure Hyperlipidemia Hypertension Osteoarthritis Pneumonia Small cell lung cancer (CMS/HCC) Type 2 diabetes mellitus [2] Past Surgical History: Procedure Laterality Date BRAIN SURGERY TUBAL LIGATION N/A Tubal Ligation from [employer] TYMPANOSTOMY TUBE PLACEMENT N/A Ear Surgery Eustachian Tube from [employer] [3] Family History Problem Relation Name [...] Nausea and Vomiting Lisinopril Cough Meloxicam Nausea Edin Chahal DO Resident 01/04/25 3958 Cosigned by Brionna Hicks MD at 01/07/2025 3:47 PM EDT Associated attestation - Brionna Hicks MD - 01/07/2025 3:47 PM EDT I saw and evaluated the patient with the resident/fellow. I discussed the case with the resident/fellow and agree with the findings and plan as documented. * ED Triage Notes - Karlie Driver RN - 01/04/2025 6:58 PM EDT Patient presents via POV d/t concerns of bleeding around PICC line. PICC line in place to LUE, double lumen. Family reports the PICC line started bleeding around 5-6 pm today. Recent fall yesterday, however seen and cleared at [facility]. Just finished Heparin injections x 3 days ago and bridged over to +Xalrelto. documented in this encounter Plan of Treatment Upcoming Encounters Date Type Department Care Team (Late st Contact Info) Description 02/21/2025 8:45 AM EDT Clinical Support [facility] [address] [place] [address] 02/21/2025 9:20 AM EDT Office Visit [facility] [address] [place] [address] Satnam Colvin MD [address] [place] [address] 02/21/2025 11:00 AM EDT Appointment [facility] [address] [place] [address] 02/22/2025 2:30 PM EDT Appointment [facility] [address] [place] [id number] 02/23/2025 3:30 PM EDT Appointment [facility] [address] [place] [phone] 03/08/2025 1:00 PM EDT Office Visit [facility] [address] [place] [phone] Teresita Oconnell MD [address] [place] [address] 03/10/2025 2:20 PM EDT Appointment [facility] [address] [place] [address] 03/10/2025 3:45 PM EDT Appointment [facility] Radiology [address], [address] [place] [address] 03/14/2025 11:00 AM EDT Office Visit [facility] [address] [place] [address] Satnam Colvin MD [address] [facility] [address] [place] [address] documented as of this encounter Procedures Procedure Name Priority Date/Time Associated Diagnosis Comments XR CHEST 1 VIEW STAT 01/04/2025 10:36 PM EDT PROTHROMBIN TIME(PT) / INR STAT 01/04/2025 8:02 PM EDT CBC WITH AUTO DIFFERENTIAL STAT 01/04/2025 8:02 PM EDT documented in this encounter Results * XR Chest 1 View (01/04/2025 10:36 PM EDT) Anatomical Region Laterality Modality Chest Digital Radiogra phy Impressions 01/04/2025 10:52 PM EDT Left upper extremity PICC in situ, tip terminates region of the superior cavoatrial junction. Stable aeration with persistent mild ill-defined right suprahilar opacification. Mild ill-defined bilateral basilar opacities, atelectasis and/or infiltrate. No pneumothorax. Cardiomediastinal silhouette and osseous structures similar over the interval. CRITICAL RESULT: No. COMMUNICATION: Per this written report. Drafted by Robbie oHward MD on 01/04/2025 10:49 PM Final report signed by Robbie Howard MD on 01/04/2025 10:52 PM Narrative 01/04/2025 10:52 PM EDT CLINICAL INDICATION: confirm picc position TECHNIQUE: XR CHEST 1 VIEW COMPARISON: 12/31/2024. CTA chest 12/16/2024. FINDINGS: Left upper extremity PICC in situ, tip terminates region of the superior cavoatrial junction. Stable aeration with persistent mild ill-defined right suprahilar opacification. Mild ill-defined bilateral basilar opacities, atelectasis and/or infiltrate. No pneumothorax. Cardiomediastinal silhouette and osseous structures similar over the interval. Procedure Note Robbie Howard MD - 01/04/2025 CLINICAL INDICATION: confirm picc position TECHNIQUE: XR CHEST 1 VIEW COMPARISON: 12/31/2024. CTA chest 12/16/2024. FINDINGS: Left upper extremity PICC in situ, tip terminates region of the superiorcavoatrial junction. Stable aeration with persistent mild ill-definedright suprahilar opacification. Mild ill-defined bilateral basilaropacities, atelectasis and/or infiltrate. No pneumothorax.Cardiomediastinal silhouette and osseous structures similar over theinterval. IMPRESSION: Left upper extremity PICC in situ, tip terminates region of the superiorcavoatrial junction. Stable aeration with persistent mild ill-definedright suprahilar opacification. Mild ill-defined bilateral basilaropacities, atelectasis and/or infiltrate. No pneumothorax.Cardiomediastinal silhouette and osseous structures similar over theinterval. CRITICAL RESULT: No. COMMUNICATION: Per this written report. Drafted by Robbie Howard MD on 01/04/2025 10:49 PM Final report signed by Robbie Howard MD on 01/04/2025 10:52 PM us Brionna Hicks MD IMG XR PROCEDURES Final Resul t * (ABNORMAL) PT-INR (01/04/2025 8:02 PM EDT) Prothrombin Time 25.5(H) 12.0 - 14.3 sec 01/04/2025 8:17 PM EDT [facility] INR 2.3(H) 0.9 - 1.1 01/04/2025 8:17 PM EDT [facility] Blood Venous blood specimen / Unknown Venipuncture / Unknown 01/04/2025 8:02 PM EDT 01/04/2025 8:03 PM EDT Narrative [facility] - 01/04/2025 8:17 PM EDT OPTIMAL INR RANGES FOR PATIENT ON ORAL ANTICOAGULANT THERAPY Prevention of venous thromboembolism INR 2.0 to 3.0 In patients with heart disease: Atrial fibrillation INR 2.0 to 3.0 Valvular heart disease INR 2.0 to 3.0 Tissue heart valves INR 2.0 to 3.0 Mechanical prosthetic valves INR 2.5 to 3.5 Prevention of recurrent VA INR 2.5 to 3.5 us [facility] Choudhury LAB BLOOD ORDERABLES Final Resul t [facility] [address] [place] [address] * (ABNORMAL) CBC w/diff (01/04/2025 8:02 PM EDT) WBC Count 9.48 3.70 - 10.30 10*3/uL LAB HEMATOLOGY METHOD 01/04/2025 8:06 PM EDT [facility] RBC Count 3.55(L) 3.90 - 5.20 10*6/uL LAB HEMATOLOGY METHOD 01/04/2025 8:06 PM EDT [facility] HGB 11.0(L) 11.2 - 15.7 g/dL LAB HEMATOLOGY METHOD 01/04/2025 8:06 PM EDT [facility] HCT 34.1 34.0 - 45.0 % LAB HEMATOLOGY METHOD 01/04/2025 8:06 PM EDT [facility] Platelet Count 130(L) 155 - 369 10*3/uL LAB HEMATOLOGY METHOD 01/04/2025 8:06 PM EDT [facility] MCV 96 79 - 98 fL LAB HEMATOLOGY METHOD 01/04/2025 8:06 PM EDT [facility] MCH 31.0 26.0 - 32.0 pg LAB HEMATOLOGY METHOD 01/04/2025 8:06 PM EDT [facility] MCHC 32.3 30.7 - 35.5 g/dL LAB HEMATOLOGY METHOD 01/04/2025 8:06 PM EDT [facility] RDW 20.3(H) 11.5 - 14.5 % LAB HEMATOLOGY METHOD 01/04/2025 8:06 PM EDT [facility] MPV 9.7 8.8 - 12.5 fL LAB HEMATOLOGY METHOD 01/04/2025 8:06 PM EDT [facility] nRBC 0.0 <=0.0 per 100 WBCs LAB HEMATOLOGY METHOD 01/04/2025 8:06 PM EDT [facility] Differential Type Automated LAB HEMATOLOGY METHOD 01/04/2025 8:06 PM EDT [facility] Neutrophils % 63 % LAB HEMATOLOGY METHOD 01/04/2025 8:06 PM EDT [facility] Lymphocytes % 20 % LAB HEMATOLOGY METHOD 01/04/2025 8:06 PM EDT [facility] Monocytes % 12 % LAB HEMATOLOGY METHOD 01/04/2025 8:06 PM EDT [facility] Eosinophils % 4 % LAB HEMATOLOGY METHOD 01/04/2025 8:06 PM EDT [facility] Basophils % 1 % LAB HEMATOLOGY METHOD 01/04/2025 8:06 PM EDT [facility] Immature Granulocytes % 0 % LAB HEMATOLOGY METHOD 01/04/2025 8:06 PM EDT [facility] Neutrophils Absolute 5.85 1.60 - 6.10 10*3/uL LAB HEMATOLOGY METHOD 01/04/2025 8:06 PM EDT [facility] Lymphocytes Absolute 1.91 1.20 - 3.90 10*3/uL LAB HEMATOLOGY METHOD 01/04/2025 8:06 PM EDT [facility] Monocytes Absolute 1.16(H) 0.30 - 0.90 10*3/uL LAB HEMATOLOGY METHOD 01/04/2025 8:06 PM EDT [facility] Eosinophils Absolute 0.41 0.00 - 0.50 10*3/uL LAB HEMATOLOGY METHOD 01/04/2025 8:06 PM EDT [facility] Basophils Absolute 0.12(H) 0.00 - 0.10 10*3/uL LAB HEMATOLOGY METHOD 01/04/2025 8:06 PM EDT [facility] Immature Granulocytes Absolute 0.03 0.00 - 0.06 10*3/uL LAB HEMATOLOGY METHOD 01/04/2025 8:06 PM EDT [facility] Blood Venous blood specimen / Unknown Venipuncture / Unknown 01/04/2025 8:02 PM EDT 01/04/2025 8:03 PM EDT Narrative [facility] - 01/04/2025 8:06 PM EDT Therapeutic decision making should be based on absolute values, rather than percentages. 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 12/16/2024 12/22/2024 Assessment Noted Time PHQ-9 Depression Total Score: 0 09/01/19 3:26 PM EDT A fall risk assessment has been complete d for the patient 01/03/2025 9:25 AM EDT A Body Mass Index follow-up plan has been documented for the patient 12/23/2024 8:17 AM EDT documented as of this encounter Care Teams Bacteriology Technician Relationship Specialty Start Date End Date Laurie Gutierrez MD [address] [place] [address] PCP - General 12/09/23 Joshua Martínez MD [address] [place] [phone] Consulting Physician Radiation Oncology 09/19/24 documented as of this encounter
--- OUTSIDE RECORDS SUMMARY | 2025-01-05 13:00 | XMS_ITS | Encounter Summary ---
Author Organization [facility] Address [address] [place] [address] Care Team Providers Care Patent Solicitor Name Role Phone Laurie Gutierrez MD Primary Care Provider [phone] Joshua Martínez MD Unavailable Encounter Details Date Type Department Care Team (Late st Contact Info) Description 01/05/2025 1:00 PM EDT Office Visit [facility] [address] [place] [address] Lia Barnes, CUSTOMER CONSULTANT [address] [facility] [address] [place] [address] Surgical site infection (Primary Dx) Social History Tobacco Use Types [...] in a nursing home (including now)? No 12/16/2024 CAGE ASSESSMENT Answer [...] drink first t laurie in the morning (EYE-MANUFACTURING AREA MANAGER) to steady your nerves or to get rid of a hangover? 0 12/02/2024 CAGE Questionnaire Score 0 025 Utilities Answer Date Recorded In the past 12 months has th [employer], gas, oil, or water company threatened to [...] Sign Reading Time Taken Comments Blood Pressure 94/68 01/05/2025 1:02 PM EDT Pulse 79 01/05/2025 1:02 PM EDT Temperature 36.8 C (98.3 F) 01/05/2025 1:02 PM EDT Respiratory Rate - - Oxygen Saturation 95% 01/05/2025 1:02 PM EDT Inhaled Oxygen Concentration - - Weight 117 kg (259 lb) 01/05/2025 1:02 PM EDT Height 170.2 cm (5' 7 ) 01/05/2025 1:02 PM EDT Body Mass Index 40.57 01/05/2025 1:02 PM EDT documented in this encounter Functional Status * Over the past 2 weeks, how often have you been bothered by any of the following problems? Question Answer Date of Assessment Author Little interest or pleasure in doing things Not at all 01/05/2025 1:02 PM EDT Teresa Luevano Feeling down, depressed, or hopeless Not at all 01/05/2025 1:02 PM EDT Teresa Luevano Patient Health Questionnaire -2 Score 0 01/05/2025 1:02 PM EDT Teresa Luevano documented as of this encounter Miscellaneous Notes * Progress Notes - Lia Barnes, CUSTOMER CONSULTANT - 01/05/2025 1:00 PM EDT INFECTIOUS DISEASE HOSPITAL FOLLOW UP NOTE Patient Name: Teresa Rivera [id number] female 64 y.o. Admission Dates: 12/15/24-12/22/24 ANTIMICROBIAL REVIEW: Current: [facility] HPI: Teresa Rivera is a 64 y.o. 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 She was recently admitted 11/29/24 - 12/10/24 after a seizure. During that admission, she had a respiratory culture that grew MDR PRESCHOOL ASSISTANT pseudomonas. She is now here with concern for post obstructive pneumonia and craniotomy surgical site infection. Blood cultures are NGTD. Patient ultimately had OR washout on 12/16 with NSGY with purulence/signs of infection associated wit h and below bone flap. Intra-operative cultures (+) PsA. PROBLEM LIST Craniotomy surgical site infection Pneumonia with history of MDR/PRESCHOOL ASSISTANT organism Multiple bilateral PE Small cell lung [...] perspective when medically cleared from other specialities HPI: Patient is here with her sons. Today patient reports she is tolerating the Cefepime and is notmissing any doses or having any side effects. Reports she has had some loose stool but continues toonly have one BM a day. Denies nausea, vomiting and chills/fevers. Denies SOB, cough, and chest pain. She has not had any drainage from her head incision. Reports PICC line is doing well today. She did present to ED yesterday (01/05) for bleeding around the PICC. Dressing was changed and there was no concern for displacement after CXR. Reports home health changes dressings and draws labs on Mondays. Reports alejandro in her incision will be removed 01/10. Patient has no complaints or concerns today. REVIEW OF SYSTEMS: 14-point ROS negative except as stated above. ALLERGIES: Allergies[1] VITAL SIGNS: Visit Vitals BP 94/68 (BP Location: Left arm, Patient Position: Sitting, BP Cuff Size: Adult) Pulse 79 Temp 36.8 ??C (98.3 ??F) (Oral) Ht 1.702 m (5' 7 ) Wt 117 kg (259 lb) SpO2 95% BMI 40.57 kg/m?? PHYSICAL EXAM: Physical Exam Vitals reviewed. Constitutional: Appearance: Normal appearance. She is obese. HENT: Nose: Nose normal. Cardiovascular: Rate and Rhythm: Normal rate and regular rhythm. Heart sounds: Normal heart sounds. Pulmonary: Effort: Pulmonary effort is normal. Breath sounds: Normal breath sounds. Abdominal: General: Abdomen is flat. Palpations: Abdomen is soft. Musculoskeletal: General: Normal range of motion. Comments: In wheelchair Skin: General: Skin is dry. Capillary Refill: Capillary refill takes less than 2 seconds. Comments: Head incision without any drainage or erythema. [place] in place PICC lines dressing clean/dry and intact. No erythema or drainage. Neurological: Mental Status: She is alert and oriented to person, place, and time. Psychiatric: Mood and Affect: Mood normal. Behavior: Behavior normal. Thought Content: Thought content normal. Judgment: Judgment normal. LABS:. Admission on 01/04/2025, Discharged on 01/04/2025 Component Date Value Ref Range Status WBC Count 01/04/2025 9.48 3.70 - 10.30 10*3/uL Final RBC Count 01/04/2025 3.55 (L) 3.90 - 5.20 10*6/uL Final HGB 01/04/2025 11.0 (L) 11.2 - 15.7 g/dL Final HCT 01/04/2025 34.1 34.0 - 45.0 % Final Platelet Count 01/04/2025 130 (L) 155 - 369 10*3/uL Final MCV 01/04/2025 96 79 - 98 fL Final MCH 01/04/2025 31.0 26.0 - 32.0 pg Final MCHC 01/04/2025 32.3 30.7 - 35.5 g/dL Final RDW 01/04/2025 20.3 (H) 11.5 - 14.5 % Final MPV 01/04/2025 9.7 8.8 - 12.5 fL Final nRBC 01/04/2025 0.0 <=0.0 per 100 WBCs Final Differential Type 01/04/2025 Automated Final Neutrophils % 01/04/2025 63 % Final Lymphocytes % 01/04/2025 20 % Final Monocytes % 01/04/2025 12 % Final Eosinophils % 01/04/2025 4 % Final Basophils % 01/04/2025 1 % Final Immature Granulocytes % 01/04/2025 0 % Final Neutrophils Absolute 01/04/2025 5.85 1.60 - 6.10 10*3/uL Final Lymphocytes Absolute 01/04/2025 1.91 1.20 - 3.90 10*3/uL Final Monocytes Absolute 01/04/2025 1.16 (H) 0.30 - 0.90 10*3/uL Final Eosinophils Absolute 01/04/2025 0.41 0.00 - 0.50 10*3/uL Final Basophils Absolute 01/04/2025 0.12 (H) 0.00 - 0.10 10*3/uL Final Immature Granulocytes Absolute 01/04/2025 0.03 0.00 - 0.06 10*3/uL Final Prothrombin Time 01/04/2025 25.5 (H) 12.0 - 14.3 sec Final INR 01/04/2025 2.3 (H) 0.9 - 1.1 Final IMAGING/STUDIES: XR Chest 1 View Result Date: [...] is no recent study available for direct [id number] comparison. XR Chest 1 View Result Date: [...] the appropriate clinical setting. * Residual cleft ofenhancing tissue along the left falx which may reflect residual or recurrent tumor. * There is no evidence of new or enlarging intracranial hemorrhage or acute infarction. MICROBIOLOGY: 12/16 Bone culture (incluidng anerobic, AFB and fungal) PsA 12/16 Intra-operative swab culture (including anerobic, AFB, Fungal) PsA 12/16 Resp culture poor quality 12/16 Urine strep and legionella negative 12/16 Blood culture NGTD 12/15 Resp culture negative 12/15 Covid negative 12/15 Blood culture NGTD 12/01 Resp culture MDR PsA, MURF ASSESSMENT/PLAN: Problem List Items Addressed This Visit None #Craniotomy surgical site infection #Pneumonia with history of MDR/PRESCHOOL ASSISTANT organism Teresa Rivera is a 64 y.o. female [...] had a respiratory culture that grew MDR PRESCHOOL ASSISTANT pseudomonas. She presented with concern for post obstructive pneumonia and craniotomy surgical site infection. Blood cultures are NGTD. Patient ultimately had OR washout on 12/16 with NSGY with purulence/signs of infection associated with and below bone flap. Intra-operative cultures (+) PsA. Discharged on Cefepime (12/16-01/26). Doing well today without complaints. Recommendations: -continue Cefepime 12/16-01/26/2025 -continue to follow with [facility] along with HH for weekly labs and dressing changes -follow up scheduled 01/26 Time with patient + review of records + documentation = 30 minutes Lia Barnes APRN Infectious Diseases [1] Allergies Allergen Reactions Cephalexin Nausea and Vomiting Lisinopril Cough Meloxicam Nausea documented in this encounter Plan of Treatment Upcoming Encounters Date Type Department Care Team ([facility] st Contact Info) Description 02/21/2025 8:45 AM EDT Clinical Support [facility] [address] [facility] [place] [address] 02/21/2025 9:20 AM EDT Office Visit [facility] [address] , [address] [place] [address] Satnam Colvin MD [address] [facility] [address] [place] [address] 02/21/2025 11:00 AM EDT Appointment [facility] [address] [place] [address] 02/22/2025 2:30 PM EDT Appointment [facility] [address] [place] [address] 02/23/2025 3:30 PM EDT Appointment [facility] [address] [place] [address] 03/08/2025 1:00 PM EDT Office Visit [facility] [place] [address] [facility] [place] [address] Teresita Oconnell MD [address] [place] [address] 03/10/2025 2:20 PM EDT Appointment [facility] [address] [place] [address] 03/10/2025 3:45 PM EDT Appointment [facility] Rad[facility] 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 12/16/2024 12/22/2024 Assessment Noted Time PHQ-9 Depression Total Score: 0 09/01/19 3:26 PM EDT A fall risk assessment has been complete d for the patient 01/05/2025 12:57 PM EDT A Body Mass Index follow-up plan has been documented for the patient 01/05/2025 1:37 PM EDT documented as of this encounter Care Teams Patent Solicitor Relationship Specialty Start Date End Date Laurie Gutierrez MD [address] [place] [address] PCP - General 12/09/23 Joshua Martínez MD [address] [place] [phone] Consulting Physician Radiation Oncology 09/19/24 documented as of this encounter
--- OUTSIDE RECORDS SUMMARY | 2025-01-10 09:00 | XMS_ITS | Encounter Summary ---
Author Organization [facility] Address [address] [place] [address] Care Team Providers Care Billiard Player Name Role Phone Laurie Gutierrez MD Primary Care Provider [phone] Joshua Martínez MD Unavailable Reason for Visit * Reason Comments Labs Only PICC line lab draw Encounter Details Date Type Department Care Team (Latest Contact Info) Description 01/10/2025 9:00 AM EDT Clinical Support [facility] [address] [place] [phone] Extensive stage primary small cell carcinoma of [...] in a group home (including now)? No 12/16/2024 CAGE ASSESSMENT [...] drink first t laurie in the morning (EYE-TRIM ATTACHER) to steady your nerves or to get rid of a hangover? 0 12/02/2024 CAGE Questionnaire Score 0 025 Utilities Answer Date Recorded In the past 12 months has e [employer], gas, oil, or water company threatened to [...] Respiratory [address] [facility], [address] [place] [address] 02/21/2025 9:20 AM EDT Office Visit [facility] [address] [facility], [address] [place] [address] Satnam Colvin MD [address] [facility] [address] [address] [facility] [address] [place] [address] 02/21/2025 11:00 AM EDT Appointment [facility] [address] [place] [address] 02/22/2025 2:30 PM EDT Appointment [facility] [address] [place] [address] 02/23/2025 3:30 PM EDT Appointment [facility] [address] [place] [address] 03/08/2025 1:00 PM EDT Office Visit [facility] [place] [address] [facility] [place] [address] Teresita Oconnell MD [address] [place] [address] 03/10/2025 2:20 PM EDT Appointment [facility] [address] [place] [phone] 03/10/2025 3:45 PM EDT Appointment [facility] [address], [address] [place] [address] 03/14/2025 11:00 AM EDT Office Visit [facility] [address] [facility], [address] [place] [address] Satnam Colvin MD [address] [facility] [address] [address] [place] [address] documented as of this encounter Procedures Procedure Name Priority Date/Time Associated Diagnosis Comments TSH REFLEX FT4 Routine 01/10/2025 9:21 AM EDT Extensive stage primary small cell carcinoma of lung CBC WITH AUTO DIFFERENTIAL Routine 01/10/2025 9:21 AM EDT Extensive stage primary small cell carcinoma of lung MAGNESIUM, PLASMA STAT 01/10/2025 9:2 1 AM EDT Extensive stage primary small cell carcinoma of lung COMPREHENSIVE METABOLIC PANEL, PLASMA Routine 01/10/2025 9:21 AM EDT Extensive stage primary small cell carcinoma of lung documented in this encounter Results * TSH reflex FT4 (01/10/2025 9:21 AM EDT) Thyroid Stimulating Hormone, Plasma 1.84 0.40 - 4.20 uIU/mL 01/10/2025 10:06 AM EDT [facility] Blood Venous blood specimen / Unknown Venipuncture / Unknown 01/10/2025 9:21 AM EDT 01/10/2025 9:27 AM EDT Satnam Dunne MD LAB BLOOD ORDERABLES Fi nal Result Performing Organization Address City/[facility]/ZIP Co de Phone Number [facility] [address] [place] [address] * (ABNORMAL) Magnesium (01/10/2025 9:21 AM EDT) Magnesium, Plasma 1.4(L) 1.9 - 2.4 mg/dL 01/10/2025 10:06 AM EDT [facility] Blood Venous blood specimen / Unknown Venipuncture / Unknown 01/10/2025 9:21 AM EDT 01/10/2025 9:27 AM EDT Satnam Dunne MD LAB BLOOD ORDERABLES Fi nal Result Performing Organization Address [facility]/ZIP Co de Phone Number [facility] [address] [place] [address] * (ABNORMAL) Comprehensive metabolic panel (01/10/2025 9:21 AM EDT) Glucose, Plasma 127(H) 74 - 99 mg/dL 01/10/2025 10:06 AM EDT [facility] BUN, Plasma 16 8 - 23 mg/dL 01/10/2025 10:06 AM EDT [facility] Creatinine, Plasma 0.88 0.60 - 1.10 mg/dL 01/10/2025 10:06 AM EDT [facility] BUN/Creatinine Ratio 18 01/10/2025 10:06 AM EDT [facility] Sodium, Plasma 141 136 - 145 mmol/L 01/10/2025 10:06 AM EDT [facility] Potassium, Plasma 3.9 3.6 - 4.9 mmol/L 01/10/2025 10:06 AM EDT [facility] Chloride, Plasma 115(H) 97 - 107 mmol/L 01/10/2025 10:06 AM EDT [facility] CO2, Plasma 16(L) 22 - 29 mmol/L 01/10/2025 10:06 AM EDT [facility] Anion Gap 10 6 - 16 mmol/L 01/10/2025 10:06 AM EDT [facility] Total Calcium, Plasma 9.4 8.9 - 10.2 mg/dL 01/10/2025 10:06 AM EDT [facility] Total Protein 7.2 6.3 - 7.9 g/dL 01/10/2025 10:06 AM EDT [facility] Albumin, Plasma 3.1(L) 3.5 - 5.2 g/dL 01/10/2025 10:06 AM EDT [facility] AST, Plasma 22 10 - 35 U/L 01/10/2025 10:06 AM EDT [facility] ALT, Plasma 13 10 - 35 U/L 01/10/2025 10:06 AM EDT [facility] Alkaline Phosphatase, Plasma 90 46 - 142 U/L 01/10/2025 10:06 AM EDT [facility] Total Bilirubin, Plasma 0.3 0.2 - 1.1 mg/dL 01/10/2025 10:06 AM EDT [facility] eGFRcr 73.5 mL/min/1.7 3m*2 01/10/2025 10:06 AM EDT [facility] Comment:Reported eGFRcr in m L/min/1.73m2 is based the CKD-EPI 2020 equation that does not use a race coefficient. Blood Venous blood specimen / Unknown Venipuncture / Unknown 01/10/2025 9:21 AM EDT 01/10/2025 9:27 AM EDT us Satnam Dunne MD LAB BLOOD ORDERABLES Fi nal Result [facility] [address] [place] [address] * (ABNORMAL) CBC and differential (01/10/2025 9:21 AM EDT) WBC Count 7.85 3.70 - 10.30 10*3/uL LAB HEMATOLOGY METHOD 01/10/2025 9:35 AM EDT [facility] RBC Count 3.03(L) 3.90 - 5.20 10*6/uL LAB HEMATOLOGY METHOD 01/10/2025 9:35 AM EDT [facility] HGB 9.4(L) 11.2 - 15.7 g/dL LAB HEMATOLOGY METHOD 01/10/2025 9:35 AM EDT [facility] HCT 30.2(L) 34.0 - 45.0 % LAB HEMATOLOGY METHOD 01/10/2025 9:35 AM EDT [facility] Platelet Count 142(L) 155 - 369 10*3/uL LAB HEMATOLOGY METHOD 01/10/2025 9:35 AM EDT [facility] MCV 100(H) 79 - 98 fL LAB HEMATOLOGY METHOD 01/10/2025 9:35 AM EDT [facility] MCH 31.0 26.0 - 32.0 pg LAB HEMATOLOGY METHOD 01/10/2025 9:35 AM EDT [facility] MCHC 31.1 30.7 - 35.5 g/dL LAB HEMATOLOGY METHOD 01/10/2025 9:35 AM EDT [facility] RDW 20.5(H) 11.5 - 14.5 % LAB HEMATOLOGY METHOD 01/10/2025 9:35 AM EDT [facility] MPV 10.2 8.8 - 12.5 fL LAB HEMATOLOGY METHOD 01/10/2025 9:35 AM EDT [facility] nRBC 0.0 <=0.0 per 100 WBCs LAB HEMATOLOGY METHOD 01/10/2025 9:35 AM EDT [facility] Differential Type Automated LAB HEMATOLOGY METHOD 01/10/2025 9:35 AM EDT [facility] Neutrophils % 74 % LAB HEMATOLOGY METHOD 01/10/2025 9:35 AM EDT [facility] Lymphocytes % 13 % LAB HEMATOLOGY METHOD 01/10/2025 9:35 AM EDT [facility] Monocytes % 7 % LAB HEMATOLOGY METHOD 01/10/2025 9:35 AM EDT [facility] Eosinophils % 4 % LAB HEMATOLOGY METHOD 01/10/2025 9:35 AM EDT [facility] Basophils % 1 % LAB HEMATOLOGY METHOD 01/10/2025 9:35 AM EDT [facility] Immature Granulocytes % 1 % LAB HEMATOLOGY METHOD 01/10/2025 9:35 AM EDT [facility] Neutrophils Absolute 5.86 1.60 - 6.10 10*3/uL LAB HEMATOLOGY METHOD 01/10/2025 9:35 AM EDT [facility] Lymphocytes Absolute 1.00(L) 1.20 - 3.90 10*3/uL LAB HEMATOLOGY METHOD 01/10/2025 9:35 AM EDT [facility] Monocytes Absolute 0.56 0.30 - 0.90 10*3/uL LAB HEMATOLOGY METHOD 01/10/2025 9:35 AM EDT [facility] Eosinophils Absolute 0.30 0.00 - 0.50 10*3/uL LAB HEMATOLOGY METHOD 01/10/2025 9:35 AM EDT [facility] Basophils Absolute 0.08 0.00 - 0.10 10*3/uL LAB HEMATOLOGY METHOD 01/10/2025 9:35 AM EDT [facility] Immature Granulocytes Absolute 0.05 0.00 - 0.06 10*3/uL LAB HEMATOLOGY METHOD 01/10/2025 9:35 AM EDT [facility] Blood Venous blood specimen / Unknown Venipuncture / Unknown 01/10/2025 9:21 AM EDT 01/10/2025 9:27 AM EDT Narrative [facility] - 01/10/2025 9:35 AM EDT Therapeutic decision making should be based on absolute values, rather than percentages. Satnam Dunne MD LAB BLOOD ORDERABLES Fi nal Result [facility] [address] [place] [address] documented in this encounter Visit Diagnoses Diagnosis Extensive stage primary small cell carcinoma of lung documented in this encounter Additional Health Concerns Infection Onset Date Last Indicated Resolved Time Carbapenem-Resistant Bacteri al Infection Comment:Pseudomonas aeruginosa MDR, COPIER FIELD SERVICE TECHNICIAN 10/26/2024 10/31/2024 MDRO Comment:Pseudomonas aeruginosa MDR, COPIER FIELD SERVICE TECHNICIAN. 12/16/2024 12/22/2024 Assessment Noted Time PHQ-9 Depression Total Score: 0 09/01/19 25 3:26 PM EDT A fall risk assessment has been complete d for the patient 01/10/2025 9:02 AM EDT A Body Mass Index follow-up plan has been documented for the patient 01/05/2025 1:37 PM EDT documented as of this encounter Care Teams Billiard Player Relationship Specialty Start Date End Date Laurie Gutierrez MD [address] [place] [address] PCP - General 12/09/23 Joshua Martínez MD [address] [place] [phone] Consulting Physician Radiation Oncology 09/19/24 documented as of this encounter
--- OUTSIDE RECORDS SUMMARY | 2025-01-10 09:40 | XMS_ITS | Encounter Summary ---
Author Organization [facility] Address [address] [place] [address] Care Team Providers Care Tail Worker Name Role Phone Laurie Gutierrez MD Primary Care Provider [phone] Jsohua Martínez MD Unavailable Reason for Visit * Reason Comments Follow-up * Episode Based Medications (Routine) - Authorized Specialty Diagnoses / Procedures Referred By Contac t Referred To Contact Diagnoses Small cell carcinoma of right lung, unspecified part of lung Procedures CARBOplatin / Etoposide Daily x 3 / Atezolizumab Every 21 Days Satnam Colvin MD [address] [place] [address] [address] Phone: tel: fax: Satnam Colvin MD [address] [place] [address] [address] [address] Phone: tel: fax: Referral ID Status Reason Start Date Expiration Date V isits Requested Visits Authorized [id number] Authorized 10/04/2024 04/05/2026 1 46 Encounter Details Date Type Department Care Team ([facility] st Contact Info) Description 01/10/2025 9:40 AM EDT Office Visit Pav [facility] Head, Neck & Respiratory [address] [facility], 2nd [place] [id number] Satnam Colvin MD [address] [facility] Nuria Degroot [address] [address] 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); Seizures (CMS/HCC); Encounter for antineoplastic chemotherapy; Neoplastic (malignant) related fatigue; SDH (subdural hematoma) (CMS/HCC) Social History Tobacco Use Types Packs/Day Years Used Date Smoking Tobacco: Former Cigarettes 1.5 48.4 1 976 - 10/17/2023 Passive Smoke Exposure: Past Smokeless Tobacco: Never Tobacco Cessation:Counseling Given: No Alcohol Use Standard Drinks/Week Comments Never 0 [...] drink first t laurie in the morning ([employer]) to steady your nerves or to [...] Sign Reading Time Taken Comments Blood Pressure 101/59 01/10/2025 8:59 AM EDT Pulse 65 01/10/2025 8:59 AM EDT Temperature 36.6 C (97.9 F) 01/10/2025 8:59 AM EDT Respiratory Rate 18 01/10/2025 8:59 AM EDT Oxygen Saturation 97% 01/10/2025 8:59 AM EDT Inhaled Oxygen Concentration - - Weight 104 kg (228 lb 6.3 oz) 01/10/2025 8:59 AM EDT Height - - Body Mass Index 35.77 01/05/2025 1:02 PM EDT documented in this encounter Miscellaneous Notes * Progress Notes - Satnam Colvin MD - 01/10/2025 9:40 AM EDT Medical Oncology Clinic Note Patient Name: Teresa Rivera Date of : 1960 64 y.o. Referring Physician:Satnam Colvin MD [address] [place] [phone] Encounter Date: 01/10/2025 Chief Complaint: Chief Complaint Patient presents with [...] weakness. Has home physical therapy. Interval history History of Present Illness The patient is a female who presents for evaluation of scalp infection and small-cell lung cancer She is accompanied by her son. She reports feeling slightly unsteady, although she has been more mobile at home, walking approximately 250 to 300 feet this morning. Her son notes that her ability to change direction while walking is limited, but she manages well in a straight line. She engages in leg exercises while seated but does not participate in physical therapy. The patient expresses a desire to resume chemotherapy. She had a consultation with an infectious disease specialist on 01/05/2025, during which blood work was conducted. A brain scan was performed on01/04/2025 following a fall, which revealed no signs of infection or bleeding in the brain. She also underwent imaging of her arm and leg due to complaints of pain after the fall. Her Keppra dosage was reduced during her last visit, which has resulted in an improvement in her condition. Her son observed an enhancement in her strength and mental state within two to three days of the dosage reduction. He further reduced the Keppra dosage on 01/09/2025 to 500 mg twice daily. PAST SURGICAL HISTORY: Brain surgery in 2002 or 2003 for tumor removal (non-cancerous). Current Treatment Regimen: Carbo etoposide with whole-brain radiation Current Treatment Plan History: Carbo/Etop/Atezo C1: 10/04-10/06/24 Oncology History: - initially diagnosed with [id number], stage IIIA limited stage of the right [...] was changed to 50 twice daily short-acting [id number] for seizures while in the infusion room [...] this note. Vital Signs: Visit Vitals BP 101/59 (BP Location: Right arm) Pulse 65 Temp 36.6 ??C (97.9 ??F) (Oral) Resp 18 Physical Examination: GENERAL: Appears more fatigued SKIN: [...] Pathology: Lab Results Component Value Date WBC 7.85 01/10/2025 RBC 3.03 (L) 01/10/2025 HGB 9.4 (L) 01/10/2025 HCT 30.2 (L) 01/10/2025 MCV 100 (H) 01/10/2025 MCV 93 08/25/2013 MCHC 31.1 01/10/2025 RDW 20.5 (H) 01/10/2025 PLT 142 (L) 01/10/2025 MPV 10.2 01/10/2025 EOS 3 08/25/2013 Lab Results Component Value Date BUN 16 01/10/2025 CL 115 (H) 01/10/2025 NA 141 01/10/2025 K 3.9 01/10/2025 CA 9.6 08/25/2013 TP 7.2 01/10/2025 AST 22 01/10/2025 ALT 13 01/10/2025 I visualized the recent imaging and discussed [...] as well as memory impairment and cognition. Decreased Keppra Currently on Keppra 500 mg twice a day. Continue Keppra at the current dose and do not decrease it further to prevent the recurrence of seizures. Chemotherapy will be postponed until the scalp infection has fully healed to prevent potential complications such as fever and hospitalization. The patient is advised to complete the course of IV antibiotics until 01/26/2025. Chemotherapy will be resumed on 01/31/2025. A follow-up appointment is scheduled for 01/31/2025. # Scalp infection. The wound appears to be healing well. Continue the course of IV antibiotics until 01/26/2025. Home health physical therapy will be arranged to assist with mobility and strength. # Seizures MRI of the head 12/02-with no evidence of new disease. There is a residual cleft him enhancing tissue along the left falx which may be residual tumor. Started on Keppra 1000 mg twice daily. Decreased to 500 mg twice a day and plan to continue that. # Chemotherapy toxicity -febrile neutropenia-sepsis with acute [...] images, labs, coordinating care and, 20 minutes [id number] encounter. MD GIGI Man [facility] HEAD[facility] NECK [facility] RESPIRATORY [address] [facility] [phone] [facility]. [1] Past Medical History: Diagnosis Date [...] PLACEMENT N/A Ear Surgery Eustachian Tube from [employer] [3] Family History Problem Relation Name Age [...] tablets by mouth every 6 hours. Under [place] law, monthly prescriptions (30 days) can be refilled at 25 days and three-month prescriptions (90 days) at80 days. Please contact the insurance company with questions if refills are denied., Disp: 100 tablet, Rfl: 0 atorvastatin (Lipitor) 40 MG tablet, Take 1 tablet by mouth every evening., Disp: , Rfl: Hpssfzh-Qlkxgzlymhk-Xgwgmxwuiq (Breztri Aerosphere) 160-9-4.8 MCG/ACT aerosol, Inhale 2 [...] mouth nightly., Disp: 30 capsule, Rfl: 1 ferrous sulfate 325 (65 Fe) MG tablet, [...] pen, Inject 25 Units under the skin nightly. (Patient not taking: Reported on 01/05/2025), Disp: , Rfl: levETIRAcetam (Keppra) 500 MG tablet, Take 1 tablet by mouth 2 times a day., Disp: 60 tablet, Rfl: 2 magnesium oxide (Mag-Ox) 400 MG tablet, Take [...] greater than 399=12units max of 36units daily (Patient not taking: Reported on 01/05/2025), Disp: , Rfl: nystatin (Mycostatin) 651327 UNIT/GM powder, Apply on bottom 2 times a day, Disp: 30 g, Rfl: 0 OLANZapine (ZyPREXA) 5 MG tablet, Take 1 tablet by mouth nightly., Disp: 30 tablet, Rfl: 2 ondansetron ODT (Zofran-ODT) 4 MG disintegrating tablet, [...] or vomiting., Disp: 30 tablet, Rfl: 3 rivaroxaban (Xarelto) 20 MG tablet, Take 1 tablet by mouth 1 time each day with dinner. Take with food., Disp: , Rfl: SITagliptin (Januvia) 50 MG tablet, Take 1 tablet by mouth every morning., Disp: , Rfl: triamterene-hydrochlorothiazide (Maxzide-25) 37.5-25 MG tablet, Take 1 tablet by mouth every morning. (Patient not taking: Reported on 01/05/2025), Disp: , Rfl: Vitamin B-12 ER 1000 MCG tablet controlled-release, Take 1 tablet by mouth Daily., Disp: , Rfl: documented in this encounter Plan of Treatment Upcoming Encounters Date Type Department Care Team ([facility] st Contact Info) Description 02/21/2025 8:45 AM EDT Clinical Support Pav [facility] Head[facility] Neck [facility] Respiratory [address] [facility] [address] [place] [address] 02/21/2025 9:20 AM EDT Office Visit Pav [facility] Head[facility] Neck [facility] Respiratory [address] [phone] Satnam Colvin MD [address] [facility] Nuria [facility] [address] [place] [address] 02/21/2025 11:00 AM EDT Appointment [facility] [address] [place] [address] 02/22/2025 2:30 PM EDT Appointment [facility] [address] [place] [address] 02/23/2025 3:30 PM EDT Appointment [facility] [address] [place] [address] 03/08/2025 1:00 PM EDT Office Visit [facility] [address] [facility] [place] [address] Teresita Oconnell MD [address] [place] [address] 03/10/2025 2:20 PM EDT Appointment [facility] [address]nd [place] [address] 03/10/2025 3:45 PM EDT Appointment [facility] S Radiology [address], 1st [place] [address] 03/14/2025 11:00 AM EDT Office Visit Pav [facility] Head[facility] Neck [facility] Res[facility] [address] [facility]nd [place] [phone] Satnam Colvin MD [address] [facility] [address] [place] [address] documented as of this encounter Results * TSH reflex FT4 (01/31/2025 11:17 AM EDT) Pathologist [facility] Thyroid Stimulating Hormone, Plasma 1.46 0.40 - 4.20 uIU/mL 01/31/2025 12:18 PM EDT [facility] Blood Venous blood specimen / Unknown Venipuncture / Unknown 01/31/2025 11:17 AM EDT 01/31/2025 11:27 AM EDT us Satnam Dunne MD LAB BLOOD ORDERABLES Fi nal Result [facility] [address] [place] [address] * (ABNORMAL) Magnesium (01/31/2025 11:17 AM EDT) Pathologist [facility] Magnesium, Plasma 1.2(L) 1.9 - 2.4 mg/dL 01/31/2025 12:18 PM EDT [facility] Blood Venous blood specimen / Unknown Venipuncture / Unknown 01/31/2025 11:17 AM EDT 01/31/2025 11:27 AM EDT Satnam Dunne MD LAB BLOOD ORDERABLES Fi nal Result [facility] [address] [place] [address] * (ABNORMAL) Comprehensive metabolic panel (01/31/2025 11:17 AM EDT) Glucose, Plasma 110(H) 74 - 99 mg/dL 01/31/2025 12:18 PM EDT [facility] BUN, Plasma 7(L) 8 - 23 mg/dL 01/31/2025 12:18 PM EDT [facility] Creatinine, Plasma 0.67 0.60 - 1.10 mg/dL 01/31/2025 12:18 PM EDT [facility] BUN/Creatinine Ratio 10 01/31/2025 12:18 PM EDT [facility] Sodium, Plasma 143 136 - 145 mmol/L 01/31/2025 12:18 PM EDT [facility] Potassium, Plasma 4.7 3.6 - 4.9 mmol/L 01/31/2025 12:18 PM EDT [facility] Comment:Hemolyzed, result ma y be falsely increased. Chloride, Plasma 111(H) 97 - 107 mmol/L 01/31/2025 12:18 PM EDT [facility] CO2, Plasma 18(L) 22 - 29 mmol/L 01/31/2025 12:18 PM EDT [facility] Anion Gap 14 6 - 16 mmol/L 01/31/2025 12:18 PM EDT [facility] Total Calcium, Plasma 8.1(L) 8.9 - 10.2 mg/dL 01/31/2025 12:18 PM EDT [facility] Total Protein 6.9 6.3 - 7.9 g/dL 01/31/2025 12:18 PM EDT [facility] Albumin, Plasma 2.6(L) 3.5 - 5.2 g/dL 01/31/2025 12:18 PM EDT [facility] AST, Plasma 56(H) 10 - 35 U/L 01/31/2025 12:18 PM EDT [facility] Comment:Hemolyzed, result ma y be falsely increased. ALT, Plasma 9(L) 10 - 35 U/L 01/31/2025 12:18 PM EDT [facility] Comment:Hemolyzed, result ma y be falsely increased or decreased. Alkaline Phosphatase, Plasma 120 46 - 142 U/L 01/31/2025 12:18 PM EDT [facility] Comment:Hemolyzed, result ma y be falsely decreased. Total Bilirubin, Plasma 0.5 0.2 - 1.1 mg/dL 01/31/2025 12:18 PM EDT [facility] eGFRcr 97.7 mL/min/1.7 3m*2 01/31/2025 12:18 PM EDT [facility] Comment:Reported eGFRcr in m L/min/1.73m2 is based the CKD-EPI 2020 equation that does not use a race coefficient. Blood Venous blood specimen / Unknown Venipuncture / Unknown 01/31/2025 11:17 AM EDT 01/31/2025 11:27 AM EDT Satnam Dunne MD LAB BLOOD ORDERABLES Fi nal Result [facility] [address] [place] [address] * (ABNORMAL) CBC and differential (01/31/2025 11:17 AM EDT) WBC Count 6.75 3.70 - 10.30 10*3/uL LAB HEMATOLOGY METHOD 01/31/2025 11:41 AM EDT [facility] RBC Count 3.15(L) 3.90 - 5.20 10*6/uL LAB HEMATOLOGY METHOD 01/31/2025 11:41 AM EDT [facility] HGB 10.1(L) 11.2 - 15.7 g/dL LAB HEMATOLOGY METHOD 01/31/2025 11:41 AM EDT [facility] HCT 32.5(L) 34.0 - 45.0 % LAB HEMATOLOGY METHOD 01/31/2025 11:41 AM EDT [facility] Platelet Count 172 155 - 369 10*3/uL LAB HEMATOLOGY METHOD 01/31/2025 11:41 AM EDT [facility] MCV 103(H) 79 - 98 fL LAB HEMATOLOGY METHOD 01/31/2025 11:41 AM EDT [facility] MCH 32.1(H) 26.0 - 32.0 pg LAB HEMATOLOGY METHOD 01/31/2025 11:41 AM EDT [facility] MCHC 31.1 30.7 - 35.5 g/dL LAB HEMATOLOGY METHOD 01/31/2025 11:41 AM EDT [facility] RDW 17.7(H) 11.5 - 14.5 % LAB HEMATOLOGY METHOD 01/31/2025 11:41 AM EDT [facility] MPV 9.5 8.8 - 12.5 fL LAB HEMATOLOGY METHOD 01/31/2025 11:41 AM EDT [facility] nRBC 0.0 <=0.0 per 100 WBCs LAB HEMATOLOGY METHOD 01/31/2025 11:41 AM EDT [facility] Differential Type Automated LAB HEMATOLOGY METHOD 01/31/2025 11:41 AM EDT [facility] Neutrophils % 75 % LAB HEMATOLOGY METHOD 01/31/2025 11:41 AM EDT [facility] Lymphocytes % 14 % LAB HEMATOLOGY METHOD 01/31/2025 11:41 AM EDT [facility] Monocytes % 8 % LAB HEMATOLOGY METHOD 01/31/2025 11:41 AM EDT [facility] Eosinophils % 2 % LAB HEMATOLOGY METHOD 01/31/2025 11:41 AM EDT [facility] Basophils % 1 % LAB HEMATOLOGY METHOD 01/31/2025 11:41 AM EDT [facility] Immature Granulocytes % 0 % LAB HEMATOLOGY METHOD 01/31/2025 11:41 AM EDT [facility] Neutrophils Absolute 4.98 1.60 - 6.10 10*3/uL LAB HEMATOLOGY METHOD 01/31/2025 11:41 AM EDT [facility] Lymphocytes Absolute 0.95(L) 1.20 - 3.90 10*3/uL LAB HEMATOLOGY METHOD 01/31/2025 11:41 AM EDT [facility] Monocytes Absolute 0.56 0.30 - 0.90 10*3/uL LAB HEMATOLOGY METHOD 01/31/2025 11:41 AM EDT [facility] Eosinophils Absolute 0.15 0.00 - 0.50 10*3/uL LAB HEMATOLOGY METHOD 01/31/2025 11:41 AM EDT [facility] Basophils Absolute 0.08 0.00 - 0.10 10*3/uL LAB HEMATOLOGY METHOD 01/31/2025 11:41 AM EDT [facility] Immature Granulocytes Absolute 0.03 0.00 - 0.06 10*3/uL LAB HEMATOLOGY METHOD 01/31/2025 11:41 AM EDT [facility] Blood Venous blood specimen / Unknown Venipuncture / Unknown 01/31/2025 11:17 AM EDT 01/31/2025 11:27 AM EDT Narrative [facility] - 01/31/2025 11:41 AM EDT Therapeutic decision making should be based on absolute values, rather than percentages. 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 12/16/2024 12/22/2024 Assessment Noted Time PHQ-9 Depression Total Score: 0 09/01/19 25 3:26 PM EDT A fall risk assessment has been complete d for the patient 01/10/2025 9:02 AM EDT A Body Mass Index follow-up plan has been documented for the patient 01/05/2025 1:37 PM EDT documented as of this encounter Care Teams Tail Worker Relationship Specialty Start Date End Date Laurie Gutierrez MD [address] [place] [phone] PCP - General 12/09/23 Joshua Martínez MD [address] [place] [phone] Consulting Physician Radiation Oncology 09/19/24 documented as of this encounter
--- OUTSIDE RECORDS SUMMARY | 2025-01-17 15:12 | XMS_ITS | Encounter Summary ---
Author Organization [facility] Address [address] [place] [address] Care Team Providers Care Sap Manager Name Role Phone Laurie Gutierrez MD Primary Care Provider [phone] Joshua Martínez MD Unavailable Reason for Visit * Reason Comments Vascular Access Problem * Auth/Cert (Routine) Specialty Diagnoses / Procedures Referred By Contnida t Referred To Contact Diagnoses Pain [facility] [address] [place] [address] Phone: tel: [facility] Emergency Department [address] [place] [address] Phone: tel: Referral ID Status Reason Start Date Expiration Date Visits Re quested Visits Authorized [id number] 1 1 Encounter Details Date Type Department Care Team (Latest Contact Info) Description 01/17/2025 3:12 PM EDT - 01/18/2025 7:02 PM EDT Hospital Encounter [facility] Emergency [facility] [address] [place] [address] Radha Stokes MD [address] [place] [address] Munira Dwyer MD [facility] [place] [address] Haroon Liu MD [facility] [place] [id number] PICC line infection, initial encounter (Primary Dx); Paroxysmal atrial fibrillation (CMS/HCC); History of craniotomy Discharge Disposition: Home or Self Care Social [...] in a care home (including now)? 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 0 12/02/2024 CAGE Questionnaire Score 0 025 Utilities Answer Date Recorded In the past 12 months has th e seedchange, gas, oil, or water company threatened to [...] Sign Reading Time Taken Comments Blood Pressure 105/79 01/18/2025 6:44 PM EDT Pulse 81 01/18/2025 6:44 PM EDT Temperature 36.6 C (97.9 F) 01/18/2025 6:44 PM EDT Respiratory Rate 22 01/18/2025 6:44 PM EDT Oxygen Saturation 99% 01/18/2025 6:44 PM EDT Inhaled Oxygen Concentration - - Weight 113 kg (250 lb) 01/17/2025 2:23 PM EDT Height 170.2 cm (5' 7 ) 01/17/2025 2:23 PM EDT Body Mass Index 39.16 01/17/2025 2:23 PM EDT documented in this encounter Functional Status * Calculated C-SSRS Risk Score (Lifetime/Recent) Answer Date of Assessment Author No Risk Indicated 01/17/2025 3:35 PM EDT Lenka Paige RN * Question Answer Date of Assessment Author 1. Wish to be (Past 1 Month) No 025 3:35 PM EDT Deisi Paige RN 2. Non-Specific Active Suici radha Thoughts (Past 1 Month) No 01/17/2025 3:35 PM EDT Deisi Paige RN 6. Suicidal Behavior (Lifetime) No 3:35 PM EDT Deisi Paige RN documented as of this encounter Discharge Instructions * Discharge Instructions* Vonnie Santos MD - 01/18/2025 6:30 PM EDT Please follow up with the primary care doctor over the next several days. Please return if you develop any new or worsening symptoms as we are always happy to re-evaluate. Please continue to monitor the redness on your arm and make sure that it does not continue to extend outside of the marker outline. If it does start extending outside of the outlined area or you develop fever, vomiting, or other concerning symptoms please return. Thank you for allowing us to take care of you today in the emergency department documented in this encounter Medications at Time of Discharge atorvastatin (Lipitor) 40 MG tablet Take 1 tablet by mouth every evening. cetirizine (ZyrTEC) 10 MG tablet Take 1 tablet by mouth daily. Continuous Glucose Sensor ([employer] G7 Sensor) [facility] USE TO MEASURE BLOOD SUGAR DIRECTED. REPLACE SENSOR EVERY 10 DAYS. 5 cyproheptadine (Periactin) 4 MG tablet Take 1 tablet by mouth 2 times a day. dilTIAZem CD (Cardizem CD) 120 MG 24 [...] 3 times a day as needed. levETIRAcetam (Keppra) 500 MG tablet Take 1 tablet by mouth 2 times a day. 60 tablet 2 5 magnesium oxide (Mag-Ox) 400 MG tabletIndications:E xtensive [...] pen needle, diabetic 31G X 5 MM [facility] Use as directed with insulin pen. 100 [...] institutional policy. 1 each 5 02/02/20 25 documented as of this encounter Miscellaneous Notes * Discharge Summary - Vonnie Santos MD - 01/18/2025 6:32 PM EDT Hospitalization Admit Date/Time: 01/17/2025 3:12 PM Admitting Attending: Discharge Date: 01/18/2025 Discharge Attending Physician: Haroon Liu MD PCP name and Address: Laurie Gutierrez MD [address] [place] [address] Referring provider name and address: No referring provider defined for this encounter. 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 In the emergency department she was afebrile and hemodynamically stable. She did not have a significant leukocytosis or elevated inflammatory markers. On exam she was noted to have redness and warmth to the left upper extremity surrounding the PICC line. She is subsequently admitted to ED observation for vascularaccess consult and IV antibiotics. In ED observation she remained afebrile and hemodynamically stable. Upon examination this morning patient's PICC line insertion site does not appear to be infected. Repeat labs are not consistent with a worsening infection as her CRP and white blood cell count are both within normal limits. Vascular access nurse was consulted this morning who did come and evaluate the patient in the bedside. After her evaluation she states that this rash and erythema is very common with a mold cleaner used with frequent dressing changes. She agrees at the insertion site of the PICC line is not concerning for infection. Patient was given a dose of vancomycin in the emergency department. PICC line is still functioning properly. Patient was intermittently in AFib with RVR today however she did miss her home dose of metoprolol. After given her home dose of metoprolol she converted to normal sinus rhythm. Throughout her episodes of AFib with a RVR she remained hemodynamically stable and was asymptomatic. Per record review patient's most recent hospitalization noted similar reoccurrences of atrial fibrillation. Patient was asymptomatic throughout all of these episodes and states that this happens frequently.Given her hemodynamically stability and conversion after her home metoprolol dose this afternoon I do believe that she is stable for discharge. Surgeries and Procedures N/A Medication List .. pen needle, diabetic 31G X 5 MM misc Use as directed with insulin pen. . atorvastatin 40 MG tablet Commonly known as: Lipitor Take 1 tablet by mouth every evening. cefepime 1 g injection Commonly known as: Maxipime Infuse 6 gm continuously every 24 hours. Mix per institutional policy. cetirizine 10 MG tablet Commonly known as: ZyrTEC Take 1 tablet by mouth daily. Cyanocobalamin ER 1000 MCG tablet controlled-release Take 1 tablet by mouth Daily. cyproheptadine 4 MG tablet Commonly known as: Periactin Take 1 tablet by mouth 2 times a day. dilTIAZem CD 120 MG 24 hr capsule Commonly known as: Cardizem CD Take 1 capsule by mouth nightly. ferrous sulfate 325 (65 Fe) MG tablet [...] Singulair Take 1 tablet by mouth nightly. OLANZapine 5 MG tablet Commonly known as: ZyPREXA Take 1 tablet by mouth nightly. ondansetron ODT 4 MG disintegrating tablet Commonly [...] hours as needed for nausea or vomiting. rivaroxaban 20 MG tablet Commonly known as: Xarelto Take 1 tablet by mouth 1 time each day with dinner. Take with food. SITagliptin 50 MG tablet Commonly known as: Januvia Take 1 tablet by mouth every morning. Discharge Diagnosis Medical Problems Post Discharge Instructions Use new cleaning solution provided by vascular filtering machine tender Continue home dressing changes Outpatient Follow-Up Future Appointments Date Time Provider Department Center 01/26/2025 4:30 PM Lia Barnes APRN [id number] 01/31/2025 9:00 AM [facility]IN Vas[facility] 01/31/2025 9:40 AM Satnam Colvin MD [facility] 01/31/2025 11:00 AM [facility] INFUSION TREATMENT [id number] [facility] 02/01/2025 1:30 PM [facility] INFUSION TREATMENT [id number] [facility] 02/02/2025 1:30 PM [facility] 2 INFUSION TREATMENT [id number] [facility] 03/08/2025 1:00 PM Teresita Oconnell MD [facility] Test Results Pending At Discharge Pending Labs Order Current Status Blood Culture (Aerobic/Anaerobet Set) Preliminary result Blood Culture (Aerobic/Anaerobet Set) Preliminary result Pertinent Physical Exam At Time of Discharge Physical Exam Vitals and nursing note reviewed. Constitutional: General: She is not in acute distress. Appearance: She is well-developed. HENT: Head: Normocephalic and atraumatic. Eyes: Conjunctiva/sclera: Conjunctivae normal. Cardiovascular: Rate and Rhythm: Normal rate and regular rhythm. Heart sounds: No murmur heard. Pulmonary: Effort: Pulmonary effort is normal. No respiratory distress. Breath sounds: Normal breath sounds. Abdominal: Palpations: Abdomen is soft. Tenderness: There is no abdominal tenderness. Musculoskeletal: General: No swelling. Cervical back: Neck supple. Comments: Some erythema surrounding the PICC line tubing. The insertion of the PICC line site is non erythematous and without warmth. It is very well-appearing without any drainage. The erythema doesnot communicate with the insertion site of the PICC line it is primarily surrounding the PICC line tubing. Skin: General: Skin is warm and dry. Capillary Refill: Capillary refill takes less than 2 seconds. Neurological: Mental Status: She is alert. Psychiatric: Mood and Affect: Mood normal. Discharge Disposition/Condition Disposition: Home Condition: Stable (s/sx potential problems absent or manageable) I spent >30 minutes of patient care and instruction time in preparation for this discharge. Cosigned by Haroon Liu MD at 01/18/2025 7:11 PM EDT Associated attestation - Haroon Liu MD - 01/18/2025 7:11 PM EDT I saw and evaluated the patient with the resident/fellow. I discussed the case with the resident/fellow and agree with the findings and plan as documented. I spent 35 minutes of patient care and instruction time in preparation for this discharge. * Consults - Mary Avila RN - 01/18/2025 1:48 PM EDTAssociated Order(s): IP CONSULT TO ADULT VASCULAR ACCESS TEAM Myself and Dr Santos reassessed left arm and do not see an increase in redness or swelling this afternoon. requests Vat leave a cleaning agent, other than CHG, and skin protectant at bedside for patient to take home later today. HH nurse can use these supplies for the next dressing change. states ok to complete Vat consult. * H&P - Dalila Huertas MD - 01/18/2025 12:53 PM EDT Images from the original note were not included. Subjective Chief complaint LUE redness/swelling History Of Present Illness Teresa Rivera is a 64 y.o. female presenting with acute onset LUE redness and swelling at PICC line insertion site. PMHx of small-cell lung cancer with mets to the brain status post craniotomy complicated by a pseudomonas wound infection resulting requiring IV abx via LUE PICC through 01/26, atrialfibrillation, PE, type 2 diabetes, COPD, hyperlipidemia, hypertension. Following with ID, plan for outpatient IV abx through LUE PICC end date 01/26. Son is assisting patient with antibiotic administration. States PICC insertion site acutely red, swollen and tender beginning 01/17 afternoon therefore they presented to ED. Patient denies fever, chills, nausea, vomiting. Headache, diarrhea, chest pain, shortness of breath. In ED, afebrile and HDS. WBC 8.43, lactate 1.3, CRP 7.5. Attempted PIV x3 including US guided x2 without success. Vascular access consulted for PICC replacement. ED obs consulted for IV abx. Medical/Surgical/Social/Family History I have reviewed and updated the patient history. Travel History Relevant International Travel History: Travel Screening Question Response Have you been in contact with someone who was sick? No / Unsure Do you have any of the following new or worsening symptoms? None of these Have you traveled internationally or domestically in the last month? No Travel History Travel since 12/18/24 No documented travel since 12/18/24 Relevant Domestic Travel History: N/A Immunizations Reviewed Allergies Cephalexin, Lisinopril, and Meloxicam Medications Current Medications[1] Objective Review of Systems All other systems reviewed and are negative. Physical Exam Constitutional: General: She is not in acute distress. Appearance: She is obese. She is not ill-appearing. HENT: Head: Normocephalic. Nose: Nose normal. Mouth/Throat: Mouth: Mucous membranes are moist. Pharynx: Oropharynx is clear. Eyes: General: No scleral icterus. Conjunctiva/sclera: Conjunctivae normal. Cardiovascular: Rate and Rhythm: Normal rate and regular rhythm. Pulses: Normal pulses. Pulmonary: Effort: Pulmonary effort is normal. Abdominal: General: Abdomen is flat. There is no distension. Tenderness: There is no abdominal tenderness. Musculoskeletal: General: Swelling (LUE swelling) and tenderness (tender at picc insertion site) present. Right lower leg: No edema. Left lower leg: No edema. Skin: General: Skin is warm and dry. Capillary Refill: Capillary refill takes less than 2 seconds. Coloration: Skin is not jaundiced or pale. Findings: Erythema present. Neurological: General: No focal deficit present. Mental Status: She is alert and oriented to person, place, and time. Psychiatric: Mood and Affect: Mood normal. Behavior: Behavior normal. Last Recorded Vitals Blood pressure 105/79, pulse 81, temperature 36.6 ??C (97.9 ??F), temperature source Oral, resp. rate 22, height 1.702 m (5' 7 ), weight 113 kg (250 lb), SpO2 99%. Results Review I have reviewed the latest lab and imaging results. Assessment & Plan PICC line infection, initial encounter Cellulitis of PICC line insertion site - acute onset erythema, edema and pain at insertion site beginning 01/17 - HDS, afebrile, WBC wnl, CRP 7.5 PLAN - Admit to ED obs - Vascular access consult for PICC removal and new insertion - CXR s/p PICC insertion to confirm placement and r/o PTX - Continue IV cefepime for pseudomonas coverage - Add Vancomycin for MRSA coverage - ID consult in AM for abx recommendations Atrial Fibrillation w/ RVR - known h/o paroxysmal afib on AC - home rate control metoprolol tartrate 50mg BID (decreased from TID 2/2 hypotension) - Resume home metoprolol tartrate 50mg BID - s/p 500cc IVF resuscitation - Continue telemetry monitoring Medically Ready for Discharge:Anticipated Tomorrow [1] No current facility-administered medications for this encounter. Current Outpatient Medications Medication Sig Dispense Refill atorvastatin (Lipitor) 40 MG tablet Take 1 tablet by mouth every evening. cefepime (Maxipime) 1 g injection Infuse 6 gm continuously every 24 hours. Mix per institutional policy. 1 each 0 cetirizine (ZyrTEC) 10 MG tablet Take 1 tablet by mouth daily. cyproheptadine (Periactin) 4 MG tablet Take 1 tablet by mouth 2 times a day. ferrous sulfate 325 (65 Fe) MG tablet Take 1 tablet by mouth daily with breakfast. FLUoxetine (PROzac) 40 MG capsule Take 1 capsule by mouth daily. gabapentin (Neurontin) 600 MG tablet Take 1 tablet by mouth 4 times a day. 120 tablet 0 hydrOXYzine HCl (Atarax) 25 MG tablet Take 1 tablet by mouth 3 times a day as needed. levETIRAcetam (Keppra) 500 MG tablet Take 1 tablet by mouth 2 times a day. 60 tablet 2 magnesium oxide (Mag-Ox) 400 MG tablet Take 1 tablet by mouth 2 times a day. Hold for diarrhea 60 tablet 1 metFORMIN (Glucophage) 1000 MG tablet Take 1 tablet by mouth 2 times a day with meals. metoprolol tartrate (Lopressor) 50 MG tablet Take 1 tablet by mouth 3 times a day. 90 tablet 1 montelukast (Singulair) 10 MG tablet Take 1 tablet by mouth nightly. OLANZapine (ZyPREXA) 5 MG tablet Take 1 tablet by mouth nightly. 30 tablet 2 ondansetron ODT (Zofran-ODT) 4 MG disintegrating tablet Dissolve 1 tablet on the tongue every 6 hours as needed for nausea or vomiting. 20 tablet 0 pantoprazole (Protonix) 40 MG EC tablet Take 1 tablet by mouth daily. Do not crush, chew, or split. prochlorperazine (Compazine) 10 MG tablet Take 1 tablet by mouth every 6 hours as needed for nauseaor vomiting. 30 tablet 3 rivaroxaban (Xarelto) 20 MG tablet Take 1 tablet by mouth 1 time each day with dinner. Take with food. SITagliptin (Januvia) 50 MG tablet Take 1 tablet by mouth every morning. Vitamin B-12 ER 1000 MCG tablet controlled-release Take 1 tablet by mouth Daily. dilTIAZem CD (Cardizem CD) 120 MG 24 hr capsule Take 1 capsule by mouth nightly. 30 capsule 1 glucose ([employer] Glucose) 4 g chewable tablet Chew 4 tablets as needed for low blood sugar. 50 tablet 12 pen needle, diabetic 31G X 5 MM misc Use as directed with insulin pen. 100 each 11 Cosigned by Munira Dwyer MD at 01/19/2025 12:32 PM EDT Associated attestation - Munira Dwyer MD - 01/19/2025 12:32 PM EDT I saw and evaluated the patient with the resident/fellow. I discussed the case with the resident/fellow and agree with the findings and plan as documented. I personally spent a total of 40 minutes on this encounter. This time includes face to face with patient, counseling, and discussion and/or coordination of care. 64yoF with notable h/o of metastatic lung Ca (to brain), currently on IV abx (continuous 24hr Cefepime) for craniotomy infection, here for increased pain and redness at PICC site. Appears erythematous at LUE PICC site, no significant edema. Given lack of fever or systemic symptoms, and poor venous access, opted to start on IV Vancomycin for cellulitis in addition to her Cefepime tonight - will monitor site closely - if progression or develops fever or systemic symptoms, will remove PICC more urgently and culture area. Likely to discuss with ID in am if no improvement. VAT team to see Pt in amas well. Known h/o Afib, has had intermittent episodes of RVR on admission - responded to her home BB and IV fluid bolus. Will continue to monitor overnight. * Consults - Mary Avila, RN - 01/18/2025 9:50 AM EDT Vat arrived to bedside for picc evaluation vs replacement of piccline. Chest xray reviewed, picc tip at cavo-atrial junction. Left arm venous duplex negative for DVT. WBCand CRP within normal limits. I spoke to patient and explained I would like to remove the picc dressing for better visualization.Pt and myself donned masks. Picc dressing removed. Picc insertion site, clean and dry. No redness or drainage noted. Redness noted around the borders of the picc dressing site. No warmth noted to upper arm. Dr Liu and Dr Santos at bedside and also viewed picc site with dressing removed. Photo taken by MD for chart. VAT suspects that pt has localized irritation related to CHG cleaning agents. MD marked redness borders with surgical marker for assessment later today. Vat donned sterile gloves. Statlock removed and site cleansed with CHG. Vat allowed CHG to dry x 5 minutes. Skin protectant then applied and allowed to dry along the dressing borders. Statlock re-applied in a different location of the arm. Algidex patch applied to picc insertion site and site covered with sterile tegaderm. End caps changed and picc flushes/draws to both ports with ease. Dr Liu would like to hold on picc replacement and will re-assess pt later today. Vat will hold onconsult pending MD decision related to the need for picc replacement. * Care Plan - Marie Smyth RN - 01/18/2025 9:15 AM EDT Problem: Adult Inpatient Plan of Care Goal: Plan of Care Review Outcome: Ongoing, Progressing Flowsheets (Taken 01/18/2025913) Progress: no change Plan of Care Reviewed With: patient Goal: Patient-Specific Goal (Individualized) Outcome: Ongoing, Progressing Flowsheets (Taken 01/17/20252128 by Luz Avalos, RN) Patient/Family-Specific Goals (Include Timeframe): Pt will be free of infection as evidenced by Normal WBC count, No signs and symptoms of infection. Individualized Care Needs: Anxious about the infection process Anxieties, Fears or Concerns: Anxious Goal: Absence of Hospital-Acquired Illness or Injury Outcome: Ongoing, Progressing Intervention: Identify and Manage Fall Risk Flowsheets (Taken 01/18/2025913) Safety Promotion/Fall Prevention: activity supervised fall prevention program maintained Intervention: Prevent Skin Injury Flowsheets (Taken 01/18/2025913) Body Position: weight shifting Intervention: Prevent and Manage VTE (Venous Thromboembolism) Risk Flowsheets (Taken 01/18/2025913) VTE Prevention/Management: education provided Intervention: Prevent Infection Flowsheets (Taken 01/18/2025913) Infection Prevention: environmental surveillance performed hand hygiene promoted Goal: Optimal Comfort and Wellbeing Outcome: Ongoing, Progressing Intervention: Monitor Pain and Promote Comfort Flowsheets (Taken 01/17/20252128 by Luz Avalos, RN) Pain Management Interventions: rest emotional support Intervention: Provide Person-Centered Care Flowsheets (Taken 01/18/2025913) Trust Relationship/Rapport: care explained Problem: Infection Goal: Absence of Infection Signs and Symptoms Outcome: Ongoing, Progressing Problem: Fall Injury Risk Goal: Absence of Fall and Fall-Related Injury Outcome: Ongoing, Progressing * Care Plan - Luz Avalos RN - 01/17/2025 2:01 PM EDT Problem: Adult Inpatient Plan of Care Goal: Plan of Care Review Outcome: Ongoing, Progressing Flowsheets (Taken 01/17/20252128) Progress: no change Plan of Care Reviewed With: patient Goal: Patient-Specific Goal (Individualized) Outcome: Ongoing, Progressing Flowsheets (Taken 01/17/20252128) Patient/Family-Specific Goals (Include Timeframe): Pt will be free of infection as evidenced by Normal WBC count, No signs and symptoms of infection. Individualized Care Needs: Anxious about the infection process Anxieties, Fears or Concerns: Anxious Goal: Absence of Hospital-Acquired Illness or Injury Outcome: Ongoing, Progressing Intervention: Identify and Manage Fall Risk Flowsheets (Taken 01/17/20252128) Safety Promotion/Fall Prevention: activity supervised assistive device/personal items within reach clutter-free environment maintained fall prevention program maintained lighting adjusted mobility aid in reach nonskid shoes/slippers when out of bed room organization consistent safety round/check completed toileting scheduled Intervention: Prevent Skin Injury Flowsheets (Taken 01/17/20252128) Body Position: weight shifting Skin Protection: incontinence pads utilized Intervention: Prevent and Manage VTE (Venous Thromboembolism) Risk Flowsheets (Taken 01/17/20252128) VTE Prevention/Management: SCDs (sequential compression devices) off Note: Ambulating Intervention: Prevent Infection Flowsheets (Taken 01/17/20252128) Infection Prevention: environmental surveillance performed equipment surfaces disinfected hand hygiene promoted personal protective equipment utilized rest/sleep promoted single patient room provided visitors restricted/screened Goal: Optimal Comfort and Wellbeing Outcome: Ongoing, Progressing Intervention: Monitor Pain and Promote Comfort Flowsheets (Taken 01/17/20252128) Pain Management Interventions: rest emotional support Intervention: Provide Person-Centered Care Flowsheets (Taken 01/17/20252128) Trust Relationship/Rapport: care explained choices provided questions encouraged questions answered empathic listening provided emotional support provided reassurance provided thoughts/feelings acknowledged Problem: Infection Goal: Absence of Infection Signs and Symptoms Outcome: Ongoing, Progressing Intervention: Prevent or Manage Infection Flowsheets (Taken 01/17/20252128) Infection Management: aseptic technique maintained Fever Reduction/Comfort Measures: fluid intake increased lightweight bedding lightweight clothing Isolation Precautions: precautions initiated contact Problem: Fall Injury Risk Goal: Absence of Fall and Fall-Related Injury Outcome: Ongoing, Progressing Intervention: Identify and Manage Contributors Flowsheets (Taken 01/17/20252128) Medication Review/Management: medications reviewed Self-Care Promotion: BADL personal objects within reach independence encouraged BADL personal routines maintained Intervention: Promote Injury-Free Environment Flowsheets (Taken 01/17/20252128) Safety Promotion/Fall Prevention: activity supervised assistive device/personal items within reach clutter-free environment maintained fall prevention program maintained lighting adjusted mobility aid in reach nonskid shoes/slippers when out of bed room organization consistent safety round/check completed toileting scheduled * ED Provider Notes - Shawn Bustamante PA - 01/17/2025 2:01 PM EDT Images from the original note were not included. - HPI Chief Complaint Patient presents with Vascular Access Problem PIT Note Teresa Rivera is a 64 y.o. female who presents to ED with left arm pain and swelling surrounding PICC this am. States line still patent last night. Notes has 10 more days of cefepime for craniotomy site infection. Reports hx small cell carcinoma. Also c/o right posterior rib pain. Patient denies current headache, dysuria, fever, chills, cough, chest pain, shortness of breath, nausea, vomiting, or diarrhea. 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 Patient reports that she woke up this morning and had swelling and erythema around her PICC line in her left upper extremity. Reports that she has the PICC line to receive antibiotics due to the craniotomy site infection; reports that she has been on an antibiotic and had thisPICC line for over a month. Denies hx of complications with PICC line in the past. Denies fever, chills, chest pain, shortness of breath, nausea, vomiting, diarrhea, dysuria, hematuria and any other complaints at this time. Patient History Past Medical History[1] Surgical History[2] Family History[3] Social History[4] Allergies: Allergies[5] Physical Exam ED Triage Vitals [01/17/25 1423] Temp Heart Rate Resp BP 36.8 ??C (98.2 ??F) 93 16 90/56 SpO2 Temp Source Heart Rate Source Patient Position 98 % Oral -- Sitting BP Location FiO2 (%) Right arm -- Physical Exam Vitals and nursing note reviewed. Constitutional: General: She is not in acute distress. Appearance: Normal appearance. HENT: Head: Normocephalic and atraumatic. Nose: No rhinorrhea. Mouth/Throat: Mouth: Mucous membranes are moist. Pharynx: Oropharynx is clear. Eyes: General: Right eye: No discharge. Left eye: No discharge. Conjunctiva/sclera: Conjunctivae normal. Pupils: Pupils are equal, round, and reactive to light. Cardiovascular: Rate and Rhythm: Normal rate. Pulmonary: Effort: Pulmonary effort is normal. No respiratory distress. Breath sounds: No stridor. Abdominal: General: There is no distension. Palpations: Abdomen is soft. Tenderness: There is no abdominal tenderness. Musculoskeletal: General: Normal range of motion. Cervical back: No rigidity. Comments: Swelling and erythema surrounding LUE PICC line; LUE is neurovascularly intact Skin: General: Skin is warm and dry. Capillary Refill: Capillary refill takes less than 2 seconds. Neurological: Mental Status: She is alert and oriented to person, place, and time. Psychiatric: Mood and Affect: Mood normal. Behavior: Behavior normal. Concord Coma Scale Score: 15 ED Course & MDM PIT 01/17/25 - 1512 Scribe Attestation: This note was dictated to me, Morena Raines, acting as a scribe for Dr. Jorge Richey. Attending Attestation: This documentation was recorded by Morena Raines acting as a scribe in my presence at the time of the encounter and accurately reflects the service I personally performed and thedecisions made by me. Assessment: 64 y.o. female presents to ED with complaint of PICC line complication. It should be noted that thechronic conditions includes atrial fibrillation, small- cell lung cancer with metastasis to the brain s/p craniotomy c/b wound infection s/p PICC on cefepime, bilateral pulmonary emboli, T2DM, COPD, HLD, HTN, which currently is not at goal therapy. This complicates the clinical picture because it Comorbidities: may be exacerbating symptoms and increases the risk for morbidity Differential Diagnosis includes PICC line infection, DVT, cellulitis, other soft tissue infection, abscess, among others. Physical exam as above. Concern for PICC line infection. Plan to stop cefepime infusion going into current PICC line. Patient will need PICC line replacement. We will initiate vancomycin due to concern for PICC line infection and surrounding cellulitis. In order to fully explore the differential diagnosis the following treatments and tests were ordered: ED Medication Administration from 01/17/2025 1401 to 01/17/2025 2101 Date/Time Order Dose Route Action 01/17/2025 1735 EDT gabapentin (Neurontin) capsule 600 mg -- Oral Canceled Entry 01/17/2025 1804 EDT gabapentin (Neurontin) capsule 600 mg 600 mg Oral Given 01/17/2025 1805 EDT oxyCODONE (Roxicodone) immediate release tablet 5 mg 5 mg Oral Given 01/17/20251955 EDT vancomycin (Vancocin) 2,250 mg in sodium chloride 0.9 % 500 mL 2,250 mg Intravenous Not Given 01/17/20252043 EDT sodium chloride 0.9 % flush 10 mL 10 mL Intravenous Not Given All Other Orders Ordered Status Ordering Provider 01/17/252025 Vital Signs Every 4 hours Acknowledged DALILA HUERTAS 01/17/252025 Until discontinued Canceled DALILA HUERTAS 01/17/252025 Notify Provider Until discontinued Comments: temp greater than 100.4, SBP greater than 160/less than 90, MAPs greater than 110, less than 65, HR greater than 110/less than 50, SpO2 less than 88, Glucose less than 80 or greater than 250, chest pain = obtain ECG and notify provider Acknowledged DALILA HUERTAS 01/17/252025 Insert peripheral IV Once Placed in And Linked Group Acknowledged DALILA HUERTAS 01/17/252025 Saline lock IV Once Placed in And Linked Group Acknowledged DALILA HUERTAS 01/17/252025 Full code Continuous Acknowledged DALILA HUERTAS 01/17/252025 Adult diet Diet texture: Regular Diet effective now Acknowledged DALILA HUERTAS 01/17/252025 Reason for no VTE Prophylaxis - hospital admission - medications Once Completed DALILA HUERTAS 01/17/252025 Telemetry Monitoring for Other Arrhythmias except chronic Atrial Fibriallation Until discontinued Acknowledged DALILA HUERATS 01/17/25 191 Consult to Adult Vascular Access Team Once Comments: Concern for PICC line infection Provider: (Not yet assigned) Acknowledged SHAWN BUSTAMANTE 01/17/25 1837 Once Comments: Concern for PICC line infection Provider: (Not yet assigned) Canceled SHAWN BUSTAMANTE 01/17/25 1522 XR Chest 2 Views Once Final result RADHA STOKES 01/17/25 1511 Blood Culture (Aerobic/Anaerobet Set) STAT Comments: From picc line Preliminary result RADHA STOKES 01/17/25 1511 Blood Culture (Aerobic/Anaerobet Set) STAT Preliminary result RADHA STOKES 01/17/25 1511 BMP STAT Final result RADHA STOKES 01/17/25 1511 CBC w/diff STAT Final result RADHA STOKES 01/17/25 1511 Lactic acid, venous STAT Final result RADHA STOKES 01/17/25 1511 C-Reactive protein STAT Final result RADHA STOKES 01/17/25 1511 VAS US Venous Duplex Upper Extremity Unilateral Left Once Preliminary result RADHA STOKES 01/17/25 1511 STAT Canceled RADHA STOKES ED Course as of 01/19/25 1615 Tue Jan 17, 2025 1739 Went to eval pt x2 not at bed [BW] 1758 Given home dose of gabapentin and oxy for pain [BW] 1914 RN unable to get US line x2 [BW] 2014 CBC w/diff(!) Low platelet count. Stable H&H. No evidence of leukocytosis or any other acute abnormalities. [BW] 2014 Lactate: 1.3 Unremarkable [BW] 2014 CRP, Plasma: 3.2 Unremarkable [BW] 2015 XR Chest 2 Views IMPRESSION: No significant interval change in the right suprahilar airspace disease. Similar small left pleuraleffusion. Stable left arm PICC line. Please see official read for further details. [BW] 2015 VAS US Venous Duplex Upper Extremity Unilateral Left IMPRESSION: Left: Normal study; no evidence of acute DVT is identified. Please see official read for further details. [BW] ED Course User Index [BW] Shawn Bustamante PA Clinical Impressions as of 01/19/25 1615 PICC line infection, initial encounter Paroxysmal atrial fibrillation (CMS/HCC) History of craniotomy ED obs was consulted for admission for PICC line replacement and tx for LUE cellulitis. Pt ultimately expressed understanding of and agreement to plan of care. Ultimately, this patient was Was admitted (Admission) The encounter diagnosis was PICC line infection, initial encounter.. Patient believed to require admission for the listed diagnoses. The ED Observation service was consulted for admissionand was agreeable to admit to ED Observation. ED Prescriptions None Disposition Observation Provider Care Team: TERESA YU ADULT [56] Are they the primary team?: Yes [1] - [1] Past Medical History: Diagnosis Date A-fib (CMS/HCC) Anxiety Brain tumor (CMS/HCC) Chemotherapy-induced nausea and vomiting 08/28/2023 COPD (chronic obstructive pulmonary disease) (CMS/HCC) Depression Heart failure Hyperlipidemia Hypertension Osteoarthritis Pneumonia Small cell lung cancer (CMS/HCC) Type 2 diabetes mellitus [2] Past Surgical History: Procedure Laterality Date BRAIN SURGERY TUBAL LIGATION N/A Tubal Ligation from [facility] TYMPANOSTOMY TUBE PLACEMENT N/A Ear Surgery Eustachian Tube from [facility] [3] Family History Problem Relation Name Age [...] Nausea and Vomiting Lisinopril Cough Meloxicam Nausea Shawn Bustamante PA 01/19/25 1618 Cosigned by Radha Stokes MD at 01/20/2025 5:19 PM EDT Associated attestation - Radha Stokes MD - 01/20/2025 5:19 PM EDT I attest to being involved in more than half the total time in patient care. * ED Triage Notes - Ignacio Arce RN - 01/17/2025 2:01 PM EDT Left arm pain/swelling at PICC siteonset today * Progress Notes - Vonnie Santos MD - 01/17/2025 2:01 PM EDT Subjective Patient is a 64-year-old female with a relevant PMH atrial fibrillation, small- cell lung cancer with Mets to the brain status post craniotomy complicated by a wound infection resulting in her having a PICC line placed and on cefepime until 01/26, PE, type 2 diabetes, COPD, hyperlipidemia, hypertension who presented to the ED for evaluation of concern for cellulitis. Patient admitted to ED observation for vascular access consult. Vascular access nurse evaluated thepatient at the bedside this morning. The insertion site of the PICC line does not have any erythemaor overlying cellulitis. There is erythema and warmth proximally 2 cm from the insertion site of the PICC line. Patient notes that she had the dressing of her PICC line changed on Thursday. On Thursday she noticed erythema and warmth which she has never noticed before. Denies any fevers. Vascular access nurse noted that this has been upon my, amputation of the cleaning solution noted with the patient's who receive frequent dressing changes. Repeat labs this morning show a white count of 5.48, ESR of 39, and CRP of 7.5 which is slightly increased from 3 yesterday, however is still not concerning for acute bacterial cellulitis. Review of Systems All other systems reviewed and are negative. Objective Vitals Temp: [36.5 ??C (97.7 ??F)-37 ??C (98.6 ??F)] 36.5 ??C (97.7 ??F) Heart Rate: [68-93] 83 Resp: [15-19] 19 BP: (89-109)/(52-82) 108/71 Physical Exam Vitals and nursing note reviewed. Constitutional: General: She is not in acute distress. Appearance: She is well-developed. HENT: Head: Normocephalic and atraumatic. Eyes: Conjunctiva/sclera: Conjunctivae normal. Cardiovascular: Rate and Rhythm: Normal rate and regular rhythm. Heart sounds: No murmur heard. Pulmonary: Effort: Pulmonary effort is normal. No respiratory distress. Breath sounds: Normal breath sounds. Abdominal: Palpations: Abdomen is soft. Tenderness: There is no abdominal tenderness. Musculoskeletal: General: No swelling. Cervical back: Neck supple. Comments: There is some erythema and warmth to the left upper extremity surrounding the PICC line. The PICC line insertion site is non erythematous, nontender and not warm. There is no drainage noted. PICC line is drawing blood and flushing appropriately Skin: General: Skin is warm and dry. Capillary Refill: Capillary refill takes less than 2 seconds. Neurological: Mental Status: She is alert. Psychiatric: Mood and Affect: Mood normal. Assessment & Plan PICC line infection, initial encounter Erythema and warmth surrounding the PICC line. Insertion site appears to be clean, dry, non erythematous, nontender, and does not appear to be infected. Erythema surrounding the PICC line appears to be more consistent with cleaning solution used in frequent dressing changes. Vascular access nurse noted that this is not uncommon in individuals with a PICC line. Patient remained afebrile. She does not have significant leukocytosis and inflammatory markers are not significantly elevated to suggestbacterial infection. Line was drawn around the area of erythema to assess for spread that would be concerning for cellulitis. We will continue to monitor patient's symptoms. -Dc vancomycin Medically Ready for Discharge:Anticipated Today Cosigned by Haroon Liu MD at 01/18/2025 6:38 PM EDT Associated attestation - Haroon Liu MD - 01/18/2025 6:38 PM EDT I saw and evaluated the patient with the resident/fellow. I discussed the case with the resident/fellow and agree with the findings and plan as documented. documented in this encounter Plan of Treatment Upcoming Encounters Date Type Department Care Team ([facility] st Contact Info) Description 02/21/2025 8:45 AM EDT Clinical Support [facility] [address] [facility] [address] [place] [address] 02/21/2025 9:20 AM EDT Office Visit [facility] [address] [facility] [place] [address] Satnam Colvin MD [address] [facility] [address] [place] [address] 02/21/2025 11:00 AM EDT Appointment [facility] [address] [place] [address] 02/22/2025 2:30 PM EDT Appointment [facility] [address] [place] [address] 02/23/2025 3:30 PM EDT Appointment [facility] [address] [place] [phone] 03/08/2025 1:00 PM EDT Office Visit [facility] [place] [facility] [address] [place] [address] Teresita Oconnell MD [address] [place] [address] 03/10/2025 2:20 PM EDT Appointment [facility] [address] [place] [address] 03/10/2025 3:45 PM EDT Appointment [facility] [address] [place] [address] 03/14/2025 11:00 AM EDT Office Visit [facility] [address] [facility] [place] [phone] Satnam Colvin MD [address] [facility] [address] [place] [address] documented as of this encounter Procedures Procedure Name Priority Date/Time Associated Diagnosis Comments SEDIMENTATION RATE, AUTOMATED STAT 01/18/2025 9:38 AM EDT CBC W/O DIFFERENTIAL STAT 01/18/2025 9:38 AM EDT C-REACTIVE PROTEIN, PLASMA STAT 01/18/2025 9:38 AM EDT ECG ADULT Routine 01/17/2025 10:29 PM EDT XR CHEST 2 VIEWS STAT 01/17/2025 5:44 PM EDT BLOOD CULTURE (AEROBIC/ANAEROBIC SET) STAT 01/17/2025 5:12 PM EDT VAS US VENOUS DUPLEX UPPER EXTREMITY UNILATERAL STAT 01/17/2025 4:32 PM EDT LACTATE, VENOUS STAT 01/17/2025 3:42 PM EDT BLOOD CULTURE (AEROBIC/ANAEROBIC SET) STAT 01/17/2025 3:42 PM EDT CBC WITH AUTO DIFFERENTIAL STAT 01/17/2025 3:42 PM EDT C-REACTIVE PROTEIN, PLASMA STAT 01/17/2025 3:42 PM EDT BASIC METABOLIC PANEL, PLASMA STAT 01/17/2025 3:42 PM EDT documented in this encounter Results * C-reactive protein (01/18/2025 9:38 AM EDT) CRP, Plasma 7.5 <=8.0 mg/L 01/18/2025 10:22 AM EDT [facility] Blood Venous blood specimen / Unknown Venipuncture / Unknown 01/18/2025 9:38 AM EDT 01/18/2025 9:52 AM EDT Narrative [facility] - 01/18/2025 10:22 AM EDT This CRP test is appropriate for assessment of infection, systemic inflammation and/or tissue injury. To assess cardiovascular disease risk order high sensitivity CRP (CRPH). us Haroon Liu MD LAB BLOOD ORDERABLES Final Re sult Performing Organization Address City/State/[facility] Co de Phone Number [facility] [address] [place] [address] * (ABNORMAL) Sed rate, automated (01/18/2025 9:38 AM EDT) Sedimentation Rate 39(H) <30 mm/hr 2024 10:20 AM EDT [facility] Blood Venous blood specimen / Unknown Venipuncture / Unknown 01/18/2025 9:38 AM EDT 01/18/2025 9:54 AM EDT us Haroon Liu MD LAB BLOOD ORDERABLES Final Re sult [facility] [address] [place] [address] * (ABNORMAL) CBC W/O Differential (01/18/2025 9:38 AM EDT) WBC Count 5.48 3.70 - 10.30 10*3/uL LAB HEMATOLOGY METHOD 01/18/2025 10:01 AM EDT [facility] RBC Count 2.62(L) 3.90 - 5.20 10*6/uL LAB HEMATOLOGY METHOD 01/18/2025 10:01 AM EDT [facility] HGB 8.2(L) 11.2 - 15.7 g/dL LAB HEMATOLOGY METHOD 01/18/2025 10:01 AM EDT [facility] HCT 26.7(L) 34.0 - 45.0 % LAB HEMATOLOGY METHOD 01/18/2025 10:01 AM EDT [facility] Platelet Count 123(L) 155 - 369 10*3/uL LAB HEMATOLOGY METHOD 01/18/2025 10:01 AM EDT [facility] MCV 102(H) 79 - 98 fL LAB HEMATOLOGY METHOD 01/18/2025 10:01 AM EDT [facility] MCH 31.3 26.0 - 32.0 pg LAB HEMATOLOGY METHOD 01/18/2025 10:01 AM EDT [facility] MCHC 30.7 30.7 - 35.5 g/dL LAB HEMATOLOGY METHOD 01/18/2025 10:01 AM EDT [facility] RDW 20.3(H) 11.5 - 14.5 % LAB HEMATOLOGY METHOD 01/18/2025 10:01 AM EDT [facility] MPV 10.2 8.8 - 12.5 fL LAB HEMATOLOGY METHOD 01/18/2025 10:01 AM EDT [facility] nRBC 0.0 <=0.0 per 100 WBCs LAB HEMATOLOGY METHOD 01/18/2025 10:01 AM EDT [facility] Blood Venous blood specimen / Unknown Venipuncture / Unknown 01/18/2025 9:38 AM EDT 01/18/2025 9:54 AM EDT us Abhisek A Liu MD LAB BLOOD ORDERABLES Final Re sult [facility] [address] [place] [address] * ECG Adult (01/17/2025 10:29 PM EDT) EKG DIAGNOSIS CLASS Abnormal MUSE ECG Ventricular Rate 150 BPM MUSE ECG QRSD Interval 82 ms MUSE ECG QT Interval 220 ms MUSE ECG QTC Interval 347 ms MUSE ECG R [place] 36 degrees MUSE ECG T Wave [place] 232 degrees MUSE ECG Diagnosis Atrial fibrillation with rapid ventricular response MUSE ECG Diagnosis ST & T wave abnormality, consider inferior ischemia MUSE ECG Diagnosis ST & T wave abnormality, consider anterior ischemia MUSE ECG Diagnosis MUSE ECG Diagnosis MUSE ECG Diagnosis Confirmed by Malik Webb ([id number]) on 01/18/2025 3:22:43 PM MUSE ECG 01/17/2025 10:2 9 PM EDT 01/18/2025 3:22 PM EDT us Munira Dwyer MD ECG ORDERABLES Final Result Performing Organization Address City/[facility] Co de Phone Number MUSE ECG * XR Chest 2 Views (01/17/2025 5:44 PM EDT) Anatomical Region Laterality Modality Chest Computed Radiogr aphy Impressions 01/17/2025 6:23 PM EDT No significant interval change in the right suprahilar airspace disease. Similar small left pleural effusion. Stable left arm PICC line. CRITICAL RESULT: No. COMMUNICATION: Per this written report. Drafted by Julia Hernandez MD on 01/17/2025 6:18 PM Final report signed by Julia Hernandez MD on 01/17/2025 6:23 PM Narrative 01/17/2025 6:23 PM EDT CLINICAL INDICATION: pain TECHNIQUE: XR CHEST 2 VIEWS COMPARISON: 01/04/2025 FINDINGS: Stable left arm PICC line terminates in the superior cavoatrial junction. Similar right suprahilar airspace and interstitial opacification. No new airspace opacities. Similar small left pleural effusion. Stable cardiac mediastinal contours. No displaced rib fractures or acute osseous abnormality. No subdiaphragmatic free air. Procedure Note Julia Hernandez MD - 01/17/2025 CLINICAL INDICATION: pain TECHNIQUE: XR CHEST 2 VIEWS COMPARISON: 01/04/2025 FINDINGS: Stable left arm PICC line terminates in the superior cavoatrial junction.Similar right suprahilar airspace and interstitial opacification. No newairspace opacities. Similar small left pleural effusion. Stable cardiacmediastinal contours. No displaced rib fractures or acute osseousabnormality. No subdiaphragmatic free air. IMPRESSION: No significant interval change in the right suprahilar airspace disease.Similar small left pleural effusion. Stable left arm PICC line. CRITICAL RESULT: No. COMMUNICATION: Per this written report. Drafted by Julia Hernandez MD on 01/17/2025 6:18 PM Final report signed by Julia Hernandez MD on 01/17/2025 6:23 PM Radha Stokes MD IMG XR PROCEDURES Final Result * Blood Culture (Aerobic/Anaerobet Set) (01/17/2025 5:12 PM EDT) Culture No growth at day 5 01/22/2025 6:09 PM EDT [facility] Blood Structure of right wrist region / Unknown Venipuncture / Unknown 01/17/2025 5:12 PM EDT 01/17/2025 5:37 PM EDT Narrative [facility] - 01/22/2025 6:09 PM EDT Low blood volume submitted, results may be compromised Radha Stokes MD LAB MICROBIOLOGY - GENERAL BENNETT NAYAK Final Result [facility] [address] [place] [address] * VAS US Venous Duplex Upper Extremity Unilateral Left (01/17/2025 4:32 PM EDT) Anatomical Region Laterality Modality Upper Extremities, Vascular Left Ultr asound Impressions 01/19/2025 3:51 PM EDT Left: Normal study; no evidence of acute DVT is identified. COMMUNICATION: Per this written report. Preliminary report signed by Cynthia Lobato on 01/17/2025 4:36 PM By electronically signing this report, I, the attending physician, attest that I have personally reviewed the images/data for the above examination(s) and I agree with the final edited report. Drafted by Cynthia Lobato on 01/17/2025 4:34 PM Final report signed by Tyesha Mario MD on 01/19/2025 3:51 PM Narrative 01/19/2025 3:51 PM EDT CLINICAL INDICATION: Acute limb swelling. TECHNIQUE: Non-invasive, real time duplex exam of the upper extremity venous circulation with Doppler ultrasonic waveform and spectral analysis was performed. COMPARISON: None. FINDINGS: Right: Venous duplex demonstrates compressible and augmentable subclavian vein. Imaged for comparison purposes. Left: Venous duplex demonstrates compressible IJV, subclavian, axillary, brachial, basilic and cephalic veins. The venous spectral analysis demonstrates a spontaneous, phasic and augmentable flow signal. Procedure Note Tyesha Mario MD - 01/19/2025 CLINICAL INDICATION: Acute limb swelling. TECHNIQUE: Non-invasive, real time duplex exam of the upper extremity venouscirculation with Doppler ultrasonic waveform and spectral analysis wasperformed. COMPARISON: None. FINDINGS: Right: Venous duplex demonstrates compressible and augmentable subclavianvein. Imaged for comparison purposes. Left: Venous duplex demonstrates compressible IJV, subclavian, axillary,brachial, basilic and cephalic veins. The venous spectral analysisdemonstrates a spontaneous, phasic and augmentable flow signal. IMPRESSION: Left: Normal study; no evidence of acute DVT is identified. COMMUNICATION: Per this written report. Preliminary report signed by Cynthia Lobato on 01/17/2025 4:36 PM By electronically signing this report, I, the attending physician, attestthat I have personally reviewed the images/data for the aboveexamination(s) and I agree with the final edited report. Drafted by Cynthia Lobato on 01/17/2025 4:34 PM Final report signed by Tyesha Mario MD on 01/19/2025 3:51 PM us Rahda Stokes MD CV VASCULAR PROCEDURES Final Re sult * C-Reactive protein (01/17/2025 3:42 PM EDT) CRP, Plasma 3.2 <=8.0 mg/L 01/17/2025 4:20 PM EDT [facility] Blood Venous blood specimen / Unknown Venipuncture / Unknown 01/17/2025 3:42 PM EDT 01/17/2025 3:44 PM EDT Narrative [facility] - 01/17/2025 4:20 PM EDT This CRP test is appropriate for assessment of infection, systemic inflammation and/or tissue injury. To assess cardiovascular disease risk order high sensitivity CRP (CRPH). Radha Stokes MD LAB BLOOD ORDERABLES Final Resu lt Performing Organization Address [facility]/ZIP Co de Phone Number [facility] [address] [place] [address] * Lactic acid, venous (01/17/2025 3:42 PM EDT) Pathologist [facility] Lactate, Venous, Whole Blood 1.3 0.5 - 2.2 mmol/L LAB HEMATOLOGY METHOD 01/17/2025 4:11 PM EDT [facility] Blood Venous blood specimen / Unknown Venipuncture / Unknown 01/17/2025 3:42 PM EDT 01/17/2025 4:07 PM EDT Radha Stokes MD LAB BLOOD ORDERABLES Final Resu lt Performing Organization Address City/[facility]/ZIP Co de Phone Number [facility] [address] [place] [address] * (ABNORMAL) CBC w/diff (01/17/2025 3:42 PM EDT) Pathologist [facility] WBC Count 8.43 3.70 - 10.30 10*3/uL LAB HEMATOLOGY METHOD 01/17/2025 3:46 PM EDT [facility] RBC Count 2.84(L) 3.90 - 5.20 10*6/uL LAB HEMATOLOGY METHOD 01/17/2025 3:46 PM EDT [facility] HGB 8.9(L) 11.2 - 15.7 g/dL LAB HEMATOLOGY METHOD 01/17/2025 3:46 PM EDT [facility] HCT 28.3(L) 34.0 - 45.0 % LAB HEMATOLOGY METHOD 01/17/2025 3:46 PM EDT [facility] Platelet Count 134(L) 155 - 369 10*3/uL LAB HEMATOLOGY METHOD 01/17/2025 3:46 PM EDT [facility] MCV 100(H) 79 - 98 fL LAB HEMATOLOGY METHOD 01/17/2025 3:46 PM EDT [facility] MCH 31.3 26.0 - 32.0 pg LAB HEMATOLOGY METHOD 01/17/2025 3:46 PM EDT [facility] MCHC 31.4 30.7 - 35.5 g/dL LAB HEMATOLOGY METHOD 01/17/2025 3:46 PM EDT [facility] RDW 19.9(H) 11.5 - 14.5 % LAB HEMATOLOGY METHOD 01/17/2025 3:46 PM EDT [facility] MPV 9.9 8.8 - 12.5 fL LAB HEMATOLOGY METHOD 01/17/2025 3:46 PM EDT [facility] nRBC 0.0 <=0.0 per 100 WBCs LAB HEMATOLOGY METHOD 01/17/2025 3:46 PM EDT [facility] Differential Type Automated LAB HEMATOLOGY METHOD 01/17/2025 3:46 PM EDT [facility] Neutrophils % 68 % LAB HEMATOLOGY METHOD 01/17/2025 3:46 PM EDT [facility] Lymphocytes % 19 % LAB HEMATOLOGY METHOD 01/17/2025 3:46 PM EDT [facility] Monocytes % 9 % LAB HEMATOLOGY METHOD 01/17/2025 3:46 PM EDT [facility] Eosinophils % 3 % LAB HEMATOLOGY METHOD 01/17/2025 3:46 PM EDT [facility] Basophils % 1 % LAB HEMATOLOGY METHOD 01/17/2025 3:46 PM EDT [facility] Immature Granulocytes % 0 % LAB HEMATOLOGY METHOD 01/17/2025 3:46 PM EDT [facility] Neutrophils Absolute 5.79 1.60 - 6.10 10*3/uL LAB HEMATOLOGY METHOD 01/17/2025 3:46 PM EDT [facility] Lymphocytes Absolute 1.56 1.20 - 3.90 10*3/uL LAB HEMATOLOGY METHOD 01/17/2025 3:46 PM EDT [facility] Monocytes Absolute 0.72 0.30 - 0.90 10*3/uL LAB HEMATOLOGY METHOD 01/17/2025 3:46 PM EDT [facility] Eosinophils Absolute 0.26 0.00 - 0.50 10*3/uL LAB HEMATOLOGY METHOD 01/17/2025 3:46 PM EDT [facility] Basophils Absolute 0.07 0.00 - 0.10 10*3/uL LAB HEMATOLOGY METHOD 01/17/2025 3:46 PM EDT [facility] Immature Granulocytes Absolute 0.03 0.00 - 0.06 10*3/uL LAB HEMATOLOGY METHOD 01/17/2025 3:46 PM EDT [facility] Blood Venous blood specimen / Unknown Venipuncture / Unknown 01/17/2025 3:42 PM EDT 01/17/2025 3:44 PM EDT Narrative [facility] - 01/17/2025 3:46 PM EDT Therapeutic decision making should be based on absolute values, rather than percentages. us Radha Stokes MD LAB BLOOD ORDERABLES Final Resu lt [facility] [address] [place] [address] * (ABNORMAL) BMP (01/17/2025 3:42 PM EDT) Glucose, Plasma 115(H) 74 - 99 mg/dL 01/17/2025 4:20 PM EDT [facility] BUN, Plasma 16 8 - 23 mg/dL 01/17/2025 4:20 PM EDT [facility] Creatinine, Plasma 0.99 0.60 - 1.10 mg/dL 01/17/2025 4:20 PM EDT [facility] BUN/Creatinine Ratio 16 01/17/2025 4:20 PM EDT [facility] Sodium, Plasma 141 136 - 145 mmol/L 01/17/2025 4:20 PM EDT [facility] Potassium, Plasma 4.1 3.6 - 4.9 mmol/L 01/17/2025 4:20 PM EDT [facility] Chloride, Plasma 114(H) 97 - 107 mmol/L 01/17/2025 4:20 PM EDT [facility] CO2, Plasma 14(L) 22 - 29 mmol/L 01/17/2025 4:20 PM EDT [facility] Anion Gap 13 6 - 16 mmol/L 01/17/2025 4:20 PM EDT [facility] Total Calcium, Plasma 8.8(L) 8.9 - 10.2 mg/dL 01/17/2025 4:20 PM EDT [facility] eGFRcr 63.8 mL/min/1.7 3m*2 01/17/2025 4:20 PM EDT [facility] Comment:Reported eGFRcr in m L/min/1.73m2 is based the CKD-EPI 2020 equation that does not use a race coefficient. Blood Venous blood specimen / Unknown Venipuncture / Unknown 01/17/2025 3:42 PM EDT 01/17/2025 3:44 PM EDT Radha Stokes MD LAB BLOOD ORDERABLES Final Resu lt Performing Organization Address City/[facility]/[place] [address] * Blood Culture (Aerobic/Anaerobet Set) (01/17/2025 3:42 PM EDT) Culture No growth at day 5 01/22/2025 5:01 PM EDT [facility] Blood Venous blood specimen / Unknown Venipuncture / Unknown 01/17/2025 3:42 PM EDT 01/17/2025 3:54 PM EDT Narrative [facility] - 01/22/2025 5:01 PM EDT Low blood volume submitted, results may be compromised Radha Stokes MD LAB MICROBIOLOGY - GENERAL ORDE RABLES Final Result Performing Organization Address [facility]/ZIP Co de Phone Number [facility] [address] [place] [address] documented in this encounter Visit Diagnoses Diagnosis PICC line infection, initial encounter- Primary Paroxysmal atrial fibrillation (CMS/HCC) Atrial fibrillation History of craniotomy documented in this encounter Administered Medications Inactive Administered Medications - up to 3 most recent administrations Medication Order MAR Action Action Date Dose Rate Site acetaminophen (Tylenol) tablet 650 mg 650 mg, Oral, Every 6 hours PRN, Starting on Thu01/17/25 at 2026, Until Thu01/18/25 at 2102, STAT, mild pain, moderate pain cefepime (Maxipime) 2 g in sodium chloride 0.9% 100 mL IVPB (vial adapter required) 2 g, Intravenous, Every 8 hours, First dose on Thu01/17/25 at 2245, Until Discontinued, STAT New Bag 01/18/2025 5:46 AM EDT 2 g 36.7 mL/hr New Bag 01/17/2025 10:57 PM EDT 2 g 36.7 mL/hr gabapentin (Neurontin) capsule 600 mg 600 mg, Oral, Once, 1 dose, On Thu01/17/25 at 1800, Routine Given 01/17/2025 6:04 PM EDT 600 mg lactated Ringer's infusion 500 mL 500 mL, Intravenous, Once, 1 dose, On Thu01/17/25 at 2235, STAT New 01/17/2025 10:38 PM EDT 500 mL lactated Ringer's infusion 500 mL 500 mL, Intravenous, Once, 1 dose, On Thu01/18/25 at 1705, STAT New Bag 01/18/2025 5:10 PM EDT 500 mL metoprolol tartrate (Lopressor) tablet 50 mg 50 mg, Oral, Once, 1 dose, On Thu01/17/25 at 2235, STAT Given 01/17/2025 10:40 PM EDT 50 mg metoprolol tartrate (Lopressor) tablet 50 mg 50 mg, Oral, 2 times daily, First dose (after last modification) on Thu01/18/25 at 1615, Until Discontinued, STAT Given 01/18/2025 4:18 PM EDT 50 mg mupirocin (Bactroban) 2 % ointment 1 Application Each Nostril, 2 times daily, 10 doses, First dose on Thu01/18/25 at 0100, Last dose on Thu01/22/25 at 0900, Routine Given 01/18/2025 8:33 AM EDT 1 Application Given 01/18/2025 1:23 AM EDT 1 Application oxyCODONE (Roxicodone) immediate release tablet 5 mg 5 mg, Oral, Once, 1 dose, On Thu01/17/25 at 1800, STAT Given 01/17/2025 6:05 PM EDT 5 mg sodium chloride 0.9 % flush 10 mL 10 mL, Intravenous, Every 12 hours, First dose on Thu01/17/25 at 2030, Until Discontinued, Routine Given 01/18/2025 8:34 AM EDT 10 mL sodium chloride 0.9 % flush 10 mL 10 mL, Intravenous, As needed, Starting on Thu01/17/25 at 2024, Until Thu01/18/25 at 2101, Routine, line care vancomycin (Vancocin) 2,250 mg in sodium chloride 0.9 % 500 mL 2,250 mg, Intravenous, Once, 1 dose, On Thu01/17/25 at 1845, at 252.2 mL/hr, STAT Given 01/18/2025 9:18 AM EDT 2,250 mg 252.2 mL/hr documented in this encounter Active and Recently Administered Medications Times are shown in EDT. Scheduled Medication Order 01/16/2025 01/17/2025 01/18/2025 cefepime (Maxipime) 2 g in sodium chloride 0.9% 100 mL IVPB (vial adapter required) 2 g, Intravenous, Every 8 hours, First dose on Thu01/17/25 at 2245, Until Discontinued, STAT 2257 (New Bag - Provider: Komal Butcher RN) 0220 (Stopped - Provider: Luz Avalos RN)0546 (New Bag - Provider: Luz Avalos RN)0833 (Stopped - Provider: Marie Smyth, JOSE MARTIN)1445 (Not Given - Provider: Marie Smyth RN - Reason: Patient in procedure) gabapentin (Neurontin) capsule 600 mg (COMPLETED) 600 mg, Oral, Once, 1 dose, On Thu01/17/25 at 1800, Routine 1804 (Given - Provider: Deisi Paige RN) lactated Ringer's infusion 500 mL (COMPLETED) 500 mL, Intravenous, Once, 1 dose, On Thu01/17/25 at 2235, STAT 2238 (New Bag - Provider: Komal Butcher, JOSE MARTIN) lactated Ringer's infusion 500 mL (COMPLETED) 500 mL, Intravenous, Once, 1 dose, On Thu01/18/25 at 1705, STAT 1710 (New Bag - Prov ider: Marie Smyth RN)1902 (Stopped - Provider: Marie Smyth RN) metoprolol tartrate (Lopressor) tablet 50 mg (COMPLETED) 50 mg, Oral, Once, 1 dose, On Thu01/17/25 at 2235, STAT 2240 (Given - Provider: Komal Butcher, JOSE MARTIN) metoprolol tartrate (Lopressor) tablet 50 mg 50 mg, Oral, 2 times daily, First dose (after last modification) on Thu01/18/25 at 1615, Until Discontinued, STAT 1618 (Given - Provid er: Marie Smyth RN) mupirocin (Bactroban) 2 % ointment 1 Application Each Nostril, 2 times daily, 10 doses, First dose on Thu01/18/25 at 0100, Last dose on Thu01/22/25 at 0900, Routine 0123 (Given - Provid er: Luz Avalos RN)0833 (Given - Provider: Marie Smyth RN)2100 (Canceled Entry - Provider: Automatic Discharge Provider - Comment: Automatically canceled at discontinue of medication order) oxyCODONE (Roxicodone) immediate release tablet 5 mg (COMPLETED) 5 mg, Oral, Once, 1 dose, On Thu01/17/25 at 1800, STAT 1805 (Given - Provider: Deisi Paige RN) sodium chloride 0.9 % flush 10 mL(Linked Group 1) 10 mL, Intravenous, Every 12 hours, First dose on Thu01/17/25 at 2030, Until Discontinued, Routine 2043 (Not Given - Provider: Luz Avalos RN - Reason: Loss of IV access) 0834 (Given - Provider: Marie Smyth RN)2030 (Canceled Entry - Provider: Automatic Discharge Provider - Comment: Automatically canceled at discontinue of medication order) vancomycin (Vancocin) 2,250 mg in sodium chloride 0.9 % 500 mL (COMPLETED) 2,250 mg, Intravenous, Once, 1 dose, On Thu01/17/25 at 1845, at 252.2 mL/hr, STAT 1955 (Not Given - Provider: Deisi Paige RN - Reason: Loss of IV access - Comment: pt does not have IV access. First call notified) 917 (Given - Provider: Marie Smyth RN) PRN Medication Order 01/16/2025 01/17/2025 01/18/2025 acetaminophen (Tylenol) tablet 650 mg 650 mg, Oral, Every 6 hours PRN, Starting on Thu01/17/25 at 2025, Until Thu01/18/25 at 210, STAT, mild pain, moderate pain sodium chloride 0.9 % flush 10 mL(Linked Group 1) 10 mL, Intravenous, As needed, Starting on Thu01/17/25 at 2024, Until Thu01/18/25 at 210, Routine, line care Linked Groups Order Group 1: Insert peripheral IV (COMPLETED) Once, On Thu01/17/25 at 2025, For 1 occurrence And Saline lock IV (COMPLETED) Once, On Thu01/17/25 at 2025, For 1 occurrence And sodium chloride 0.9 % flush 10 mLJump to med 10 mL, Intravenous, Every 12 hours, First dose on Thu01/17/25 at 2030, Until Discontinued, Routine And sodium chloride 0.9 % flush 10 mLJump to med 10 mL, Intravenous, As needed, Starting on Thu01/17/25 at 2024, Until Thu01/18/25 at 210, Routine, line care documented in this encounter Additional Health Concerns Infection Onset Date Last Indicated Resolved Time 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 12/16/2024 12/22/2024 Assessment Noted Time PHQ-9 Depression Total Score: 0 09/01/19 3:26 PM EDT A fall risk assessment has been complete d for the patient 01/10/2025 9:02 AM EDT A Body Mass Index follow-up plan has been documented for the patient 01/05/2025 1:37 PM EDT documented as of this encounter Care Teams Sap Manager Relationship Specialty Start Date End Date Laurie Gutierrez MD [address] [place] [id number] PCP - General 12/09/23 Joshua Martínez MD [address] [place] [address] [phone] Consulting Physician Radiation Oncology 09/19/24 documented as of this encounter
--- OUTSIDE RECORDS SUMMARY | 2025-01-26 16:30 | XMS_ITS | Encounter Summary ---
Author Organization [facility] Address [address] [place] [address] Care Team Providers Care Textile Conversion Manager Name Role Phone Laurie Gutierrez MD Primary Care Provider [phone] Joshua Martínez MD Unavailable Encounter Details Date Type Department Care Team (Late st Contact Info) Description 01/26/2025 4:30 PM EDT Office Visit [facility] [address] [place] [address] Lia Barnes, SALESMAN/OWNER [address] [facility] [address] [place] [address] Surgical site infection (Primary Dx); Hospital discharge follow-up; Medication management Social History Tobacco Use Types Packs/Day Years [...] in the past 12 m [facility], were you homeless or living [...] first t laurie in the morning (EYE-STUDENT LOAN COUNSELOR) to steady your nerves or to get rid of a hangover? 0 12/02/2024 CAGE Questionnaire Score 0 025 Utilities Answer Date Recorded In the past 12 months has th [employer], gas, oil, or water company threatened to [...] Sign Reading Time Taken Comments Blood Pressure 88/50 01/26/2025 10:30 AM EDT Pulse 69 01/26/2025 10:30 AM EDT Temperature 36.8 C (98.2 F) 01/26/2025 10:30 AM EDT Respiratory Rate - - Oxygen Saturation 98% 01/26/2025 10:30 AM EDT Inhaled Oxygen Concentration - - Weight 104 kg (229 lb 15 oz) 01/26/2025 10:30 AM EDT Height - - Body Mass Index 36.01 01/17/2025 2:23 PM EDT documented in this encounter Miscellaneous Notes * Progress Notes - Lia Barnes APRN - 01/26/2025 4:30 PM EDT Subjective Patient ID: Teresa Rivera is a 64 y.o. female. No chief complaint on file. [facility] (hospitalized 12/15-12/22/24): Teresa Rivera is a 64 y.o. 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 She was recently admitted 11/29/24 - 12/10/24 after a seizure. During that admission, she had a respiratory culture that grew MDR [employer] pseudomonas. She is now here with concern for post obstructive pneumonia and craniotomy surgical site infection. Blood cultures are NGTD. Patient ultimately had OR washout on 12/16 with NSGY with purulence/signsof infection associated with and below bone flap. Intra-operative cultures (+) PsA. Visit 01/05/25: Patient is here with her sons. Today patient reports she is tolerating the Cefepime and is not missing any doses or having any side effects. Reports she has had some loose stool but continues to only have one BM a day. Denies nausea, vomiting and chills/fevers. Denies SOB, cough, andchest pain. She has not had any drainage [...] Patient has no complaints or concerns today. Today 01/26/25: Today patient reports she has continued IV Cefepime without missed doses and tolerating well. PICC line has been doing well. Patient reports Oncology is not planning on using the PICC for chemo. Patient reports she gets an IV for chemo and she wants the PICC removed. Denies abdominalpain, nausea, vomiting, diarrhea, chills or fevers. Son is with patient and is concerned about a UTI as reports an increased odor. Patient denies dysuria, urinary frequency, pelvic pain and fevers. She is asymptomatic apart from odor. Denies drainage, swelling or erythema of head incision. Patient has no complaints of concerns today. The following portions of the chart were reviewed this encounter and updated as appropriate: Tobacco Allergies Meds Problems Med Hx Surg Hx Fam Hx Review of Systems Constitutional: Negative. HENT: Negative. Eyes: Negative. Respiratory: Negative. Cardiovascular: Negative. Gastrointestinal: Negative. Endocrine: Negative. Genitourinary: Negative. Musculoskeletal: Negative. Skin: Negative. Allergic/Immunologic: Negative. Neurological: Negative. Hematological: Negative. Psychiatric/Behavioral: Negative. Objective Physical Exam Vitals reviewed. Constitutional: Appearance: Normal appearance. She is obese. HENT: Nose: Nose normal. Cardiovascular: Rate and Rhythm: Normal rate and regular rhythm. Heart sounds: Normal heart sounds. Pulmonary: Effort: Pulmonary effort is normal. Breath sounds: Normal breath sounds. Abdominal: General: Abdomen is flat. Palpations: Abdomen is soft. Skin: General: Skin is dry. Capillary Refill: Capillary refill takes less than 2 seconds. Comments: Head incision without any drainage, swelling or erythema. PICC lines dressing clean/dry and intact. No erythema or drainage. Neurological: Mental Status: She is alert and oriented to person, place, and time. Psychiatric: Mood and Affect: Mood normal. Behavior: Behavior normal. Thought Content: Thought content normal. Judgment: Judgment normal. Visit Vitals BP 88/50 (BP Location: Right arm, Patient Position: Sitting, BP Cuff Size: Adult long) Pulse 69 Temp 36.8 ??C (98.2 ??F) (Oral) Wt 104 kg (229 lb 15 oz) SpO2 98% BMI 36.01 kg/m?? IMAGING/STUDIES: XR Chest 1 View Result Date: [...] is no recent study available for direct qgzy-ic-mxpm comparison. XR Chest 1 View Result Date: [...] NGTD 12/01 Resp culture MDR PsA, MURF LABS: CRP, Plasma (mg/L) Date Value 01/24/2025 4.7 WBC Count (10*3/uL) Date Value 01/24/2025 8.93 ALT, Plasma (U/L) Date Value 01/10/2025 13 AST, Plasma (U/L) Date Value 01/10/2025 22 BUN, Plasma (mg/dL) Date Value 01/24/2025 11 eGFRcr (mL/min/1.73m*2) Date Value 01/24/2025 80.0 Assessment/Plan #Craniotomy surgical site infection #Pneumonia with history of MDR/[employer] organism Teresa Rivera is a 64 y.o. [...] had a respiratory culture that grew MDR [employer] pseudomonas. She presented with concern for post obstructive pneumonia and craniotomy surgical site infection. Blood cultures are NGTD. Patient ultimately had OR washout on 12/16 with NSGY with purulence/signs of infection associated with and below bone flap. Intra-operative cultures (+) PsA. Discharged on Cefepime (12/16-01/26). Doing well today without complaints. Recommendations: -complete Cefepime 12/16-01/26/2025 today. -no documentation in for patient to retain PICC for Chemo. Per patient, oncology gives Chemo through IV and patient wants PICC out. D/C PICC in office today -continue to follow with oncology -no indication for urine culture at this time. Asymptomatic apart from change in odor. Continue to monitor. Patient verbalized understanding could test if symptomatic (dysuria, pelvic pain, fevers) -follow up PRN Time with patient + review of records + documentation = 20 minutes * Progress Notes - Kaila Farmer RN - 01/26/2025 4:30 PM EDTAssociated Order(s): PICC Removal (Clinic-Performed) Patient ID: Teresa Rivera is a 64 y.o. female. Encounter Diagnosis Name Primary? Surgical site infection Yes PICC Removal (Clinic-Performed) Date/Time: 01/26/2025 11:33 AM Performed by: Kaila Farmer RN Authorized by: Lia Barnes APRN Indications: vascular access Patient position: flat Catheter type: single lumen Post-procedure: dressing applied Patient tolerance: patient tolerated the procedure well with no immediate complications Comments: After 30 minutes, no complaints of pain, dizziness or shortness of air. Patient ambulatedindependently. * Zachary Ford - Kaila Farmer RN - 01/26/2025 11:31 AM EDT Images from the original note were not included. 810 After PICC Line Removal How do I care for myself at home? Before you go home. When the PICC is out, we will put pressure at the insertion site. This helps prevent bleeding. We may put antibiotic ointment on the site. We will tape dry, sterile gauze over thesite. Leave this dressing on for 24 hours. Cleaning the site. After the 24 hours is up, you may remove the dressing. The PICC site is very small. A small scab may form at the site. It is okay to wash the site gently with soap and water. Do not remove or pick the scab off. After washing, gently pat the site dry. You do not need to put another dressing on after you wash it. Activity. Avoid hard physical activity for 24 hours. This includes things like: ? Weight lifting ? Hard yard work ? Any physical activity with repeated arm movements When do I call my doctor? Call or see your caregiver if you have any of these problems in the arm that had the PICC: ? Swelling or puffiness ? Tenderness or pain that gets worse When should I go to the Emergency Room? Go to the nearest ER if you have any of these problems in the arm that had the PICC: ? Numbness or tingling in your fingers, hand, or arm ? Arm has a blue color and feels cold to the touch ? Redness around the insertion site or a red-streak goes up your arm ? Any type of drainage from the PICC insertion site - including: o Bleeding - (If so, use a clean towel to put firm, direct pressure to the site.) o Drainage that is yellow or cobos in color ? You have temperature by mouth above 102??F (38.9?? C) that is not helped by medicine * Zachary Ford - Kaila Farmer RN - 01/26/2025 11:31 AM EDT Images from the original note were not included. 810 After PICC Line Removal How do I care for myself at home? Before you go home. When the PICC is out, we will put pressure at the insertion site. This helps prevent bleeding. We may put antibiotic ointment on the site. We will tape dry, sterile gauze over thesite. Leave this dressing on for 24 hours. Cleaning the site. After the 24 hours is up, you may remove the dressing. The PICC site is very small. A small scab may form at the site. It is okay to wash the site gently with soap and water. Do not remove or pick the scab off. After washing, gently pat the site dry. You do not need to put another dressing on after you wash it. Activity. Avoid hard physical activity for 24 hours. This includes things like: ? Weight lifting ? Hard yard work ? Any physical activity with repeated arm movements When do I call my doctor? Call or see your caregiver if you have any of these problems in the arm that had the PICC: ? Swelling or puffiness ? Tenderness or pain that gets worse When should I go to the Emergency Room? Go to the nearest ER if you have any of these problems in the arm that had the PICC: ? Numbness or tingling in your fingers, hand, or arm ? Arm has a blue color and feels cold to the touch ? Redness around the insertion site or a red-streak goes up your arm ? Any type of drainage from the PICC insertion site - including: o Bleeding - (If so, use a clean towel to put firm, direct pressure to the site.) o Drainage that is yellow or cobos in color ? You have temperature by mouth above 102??F (38.9?? C) that is not helped by medicine documented in this encounter Plan of Treatment Upcoming Encounters Date Type Department Care Team ([facility] st Contact Info) Description 02/21/2025 8:45 AM EDT Clinical Support [facility] [address] [place] [address] 02/21/2025 9:20 AM EDT Office Visit [facility] [address] [place] [address] Satnam Colvin MD [address] [place] [phone] 02/21/2025 11:00 AM EDT Appointment [facility] [address] [place] [phone] 02/22/2025 2:30 PM EDT Appointment [facility] [address] [place] [address] 02/23/2025 3:30 PM EDT Appointment [facility] [address] [place] [phone] 03/08/2025 1:00 PM EDT Office Visit [facility] [place] [address] [place] [address] Teresita Oconnell MD [address] [place] [phone] 03/10/2025 2:20 PM EDT Appointment [facility] [address] [place] [address] 03/10/2025 3:45 PM EDT Appointment [facility] Radiology [address] [place] [phone] 03/14/2025 11:00 AM EDT Office Visit [facility] [address] [place] [address] Satnam Colvin MD [address] [facility] [address] [place] [address] documented as of this encounter Procedures Procedure Name Priority Date/Time Associated Diagnosis Comments PICC REMOVAL (CLINIC-PERFORMED) Routine 01/26/2025 11:33 AM EDT Surgical site infection Hospital discharge follow-up Medication management documented in this encounter Results * PICC Removal (Clinic-Performed) (01/26/2025 11:33 AM EDT) Narrative Kaila Farmer RN - 01/26/2025 11:33 AM EDT Kaila Farmer RN 01/26/2025 11:42 AM PICC Removal (Clinic-Performed) Date/Time: 01/26/2025 11:33 AM Performed by: Kaila Farmer RN Authorized by: Lia Barnes APRN Indications: vascular access Patient position: flat Catheter type: single lumen Post-procedure: dressing applied Patient tolerance: patient tolerated the procedure well with no immediate complications Comments: After 30 minutes, no complaints of pain, dizziness or shortness of air. Patient ambulated independently. 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 12/16/2024 12/22/2024 Assessment Noted Time PHQ-9 Depression Total Score: 0 09/01/19 25 3:26 PM EDT A fall risk assessment has been complete d for the patient 01/26/2025 10:30 AM EDT A Body Mass Index follow-up plan has been documented for the patient 01/26/2025 11:42 AM EDT documented as of this encounter Care Teams Textile Conversion Manager Relationship Specialty Start Date End Date Laurie Gutierrez MD [address] [place] [address] [place] [id number] PCP - General 12/09/23 Joshua Martínez MD [id number] [place] [address] Consulting Physician Radiation Oncology 09/19/24 documented as of this encounter
--- OUTSIDE RECORDS SUMMARY | 2025-01-31 09:30 | XMS_ITS | Encounter Summary ---
Author Organization [facility] Address [address] 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 0 12/02/2024 CAGE Questionnaire Score 0 025 Utilities Answer Date Recorded In the past 12 months has th e [employer], gas, oil, or water [employer] threatened to shut off services in your [...] Date of Assessment Author No Risk Indicated 01/31/2025 9:48 AM EDT Elvin ingram [place] R * Question Answer Date of Assessment Author 1. Wish to be (Past 1 Month) No 025 9:48 AM EDT Jerri [place] R 2. Non-Specific Active Suici radha Thoughts (Past 1 Month) No 01/31/2025 9:48 AM EDT Jerri Va enix R 6. Suicidal Behavior (Lifetime) No 9:48 AM EDT Va Guthrieenix R documented as of this encounter Plan of Treatment Upcoming Encounters Date Type Department Care Team (Late st Contact Info) Description 02/21/2025 8:45 AM EDT Clinical Support [facility] [address] [facility]nd [place] [phone] 02/21/2025 9:20 AM EDT Office Visit [facility] [address] [facility], [address]nd [place] [phone] Satnam Colvin MD [address] [facility] [address] [place] [address] 02/21/2025 11:00 AM EDT Appointment [facility] [address] [place] [phone] 02/22/2025 2:30 PM EDT Appointment [facility] [address] [place] [phone] 02/23/2025 3:30 PM EDT Appointment [facility] [address] [place] [phone] 03/08/2025 1:00 PM EDT Office Visit [facility] Garibaldi Wenceslao [address] [facility] [place] [phone] Teresita Oconnell MD [address] [place] [address] 03/10/2025 2:20 PM EDT Appointment [facility] [address] [place] [address] 03/10/2025 3:45 PM EDT Appointment [facility] Radiology [address], [address] [place] [address] 03/14/2025 11:00 AM EDT Office Visit [facility] [address] [facility], [address] [place] [phone] Satnam Colvin MD [address] [facility] [address] [place] [phone] documented as of this encounter Procedures Procedure Name Priority Date/Time Associated Diagnosis Comments TSH REFLEX FT4 Routine 01/31/2025 11:17 AM EDT Extensive stage primary small cell carcinoma of lung CBC WITH AUTO DIFFERENTIAL Routine 01/31/2025 11:17 AM EDT Extensive stage primary small cell carcinoma of lung MAGNESIUM, PLASMA STAT 01/31/2025 11: 17 AM EDT Extensive stage primary small cell carcinoma of lung COMPREHENSIVE METABOLIC PANEL, PLASMA Routine 01/31/2025 11:17 AM EDT Extensive stage primary small cell carcinoma of lung documented in this encounter Results * TSH reflex FT4 (01/31/2025 11:17 AM EDT) Thyroid Stimulating Hormone, Plasma 1.46 0.40 - 4.20 uIU/mL 01/31/2025 12:18 PM EDT [facility] Blood Venous blood specimen / Unknown Venipuncture / Unknown 01/31/2025 11:17 AM EDT 01/31/2025 11:27 AM EDT us Satnam Dunne MD LAB BLOOD ORDERABLES Fi nal Result Performing Organization Address [facility] Co de Phone Number [facility] [address] [place] [address] * (ABNORMAL) Magnesium (01/31/2025 11:17 AM EDT) Pathologist [facility] Magnesium, Plasma 1.2(L) 1.9 - 2.4 mg/dL 01/31/2025 12:18 PM EDT [facility] Blood Venous blood specimen / Unknown Venipuncture / Unknown 01/31/2025 11:17 AM EDT 01/31/2025 11:27 AM EDT Satnam Dunne MD LAB BLOOD ORDERABLES Fi nal Result Performing Organization Address City/[facility]/ZIP Co de Phone Number [facility] [address] [place] [address] * (ABNORMAL) Comprehensive metabolic panel (01/31/2025 11:17 AM EDT) Glucose, Plasma 110(H) 74 - 99 mg/dL 01/31/2025 12:18 PM EDT [facility] BUN, Plasma 7(L) 8 - 23 mg/dL 01/31/2025 12:18 PM EDT [facility] Creatinine, Plasma 0.67 0.60 - 1.10 mg/dL 01/31/2025 12:18 PM EDT [facility] BUN/Creatinine Ratio 10 01/31/2025 12:18 PM EDT [facility] Sodium, Plasma 143 136 - 145 mmol/L 01/31/2025 12:18 PM EDT [facility] Potassium, Plasma 4.7 3.6 - 4.9 mmol/L 01/31/2025 12:18 PM EDT [facility] Comment:Hemolyzed, result ma y be falsely increased. Chloride, Plasma 111(H) 97 - 107 mmol/L 01/31/2025 12:18 PM EDT [facility] CO2, Plasma 18(L) 22 - 29 mmol/L 01/31/2025 12:18 PM EDT [facility] Anion Gap 14 6 - 16 mmol/L 01/31/2025 12:18 PM EDT [facility] Total Calcium, Plasma 8.1(L) 8.9 - 10.2 mg/dL 01/31/2025 12:18 PM EDT [facility] Total Protein 6.9 6.3 - 7.9 g/dL 01/31/2025 12:18 PM EDT [facility] Albumin, Plasma 2.6(L) 3.5 - 5.2 g/dL 01/31/2025 12:18 PM EDT [facility] AST, Plasma 56(H) 10 - 35 U/L 01/31/2025 12:18 PM EDT [facility] Comment:Hemolyzed, result ma y be falsely increased. ALT, Plasma 9(L) 10 - 35 U/L 01/31/2025 12:18 PM EDT [facility] Comment:Hemolyzed, result ma y be falsely increased or decreased. Alkaline Phosphatase, Plasma 120 46 - 142 U/L 01/31/2025 12:18 PM EDT [facility] Comment:Hemolyzed, result ma y be falsely decreased. Total Bilirubin, Plasma 0.5 0.2 - 1.1 mg/dL 01/31/2025 12:18 PM EDT [facility] eGFRcr 97.7 mL/min/1.7 3m*2 01/31/2025 12:18 PM EDT [facility] Comment:Reported eGFRcr in m L/min/1.73m2 is based the CKD-EPI 2020 equation that does not use a race coefficient. Blood Venous blood specimen / Unknown Venipuncture / Unknown 01/31/2025 11:17 AM EDT 01/31/2025 11:27 AM EDT Satnam Dunne MD LAB BLOOD ORDERABLES Fi nal Result [facility] [address] [place] [address] * (ABNORMAL) CBC and differential (01/31/2025 11:17 AM EDT) WBC Count 6.75 3.70 - 10.30 10*3/uL LAB HEMATOLOGY METHOD 01/31/2025 11:41 AM EDT [facility] RBC Count 3.15(L) 3.90 - 5.20 10*6/uL LAB HEMATOLOGY METHOD 01/31/2025 11:41 AM EDT [facility] HGB 10.1(L) 11.2 - 15.7 g/dL LAB HEMATOLOGY METHOD 01/31/2025 11:41 AM EDT [facility] HCT 32.5(L) 34.0 - 45.0 % LAB HEMATOLOGY METHOD 01/31/2025 11:41 AM EDT [facility] Platelet Count 172 155 - 369 10*3/uL LAB HEMATOLOGY METHOD 01/31/2025 11:41 AM EDT [facility] MCV 103(H) 79 - 98 fL LAB HEMATOLOGY METHOD 01/31/2025 11:41 AM EDT [facility] MCH 32.1(H) 26.0 - 32.0 pg LAB HEMATOLOGY METHOD 01/31/2025 11:41 AM EDT [facility] MCHC 31.1 30.7 - 35.5 g/dL LAB HEMATOLOGY METHOD 01/31/2025 11:41 AM EDT [facility] RDW 17.7(H) 11.5 - 14.5 % LAB HEMATOLOGY METHOD 01/31/2025 11:41 AM EDT [facility] MPV 9.5 8.8 - 12.5 fL LAB HEMATOLOGY METHOD 01/31/2025 11:41 AM EDT [facility] nRBC 0.0 <=0.0 per 100 WBCs LAB HEMATOLOGY METHOD 01/31/2025 11:41 AM EDT [facility] Differential Type Automated LAB HEMATOLOGY METHOD 01/31/2025 11:41 AM EDT [facility] Neutrophils % 75 % LAB HEMATOLOGY METHOD 01/31/2025 11:41 AM EDT [facility] Lymphocytes % 14 % LAB HEMATOLOGY METHOD 01/31/2025 11:41 AM EDT [facility] Monocytes % 8 % LAB HEMATOLOGY METHOD 01/31/2025 11:41 AM EDT [facility] Eosinophils % 2 % LAB HEMATOLOGY METHOD 01/31/2025 11:41 AM EDT [facility] Basophils % 1 % LAB HEMATOLOGY METHOD 01/31/2025 11:41 AM EDT [facility] Immature Granulocytes % 0 % LAB HEMATOLOGY METHOD 01/31/2025 11:41 AM EDT [facility] Neutrophils Absolute 4.98 1.60 - 6.10 10*3/uL LAB HEMATOLOGY METHOD 01/31/2025 11:41 AM EDT [facility] Lymphocytes Absolute 0.95(L) 1.20 - 3.90 10*3/uL LAB HEMATOLOGY METHOD 01/31/2025 11:41 AM EDT [facility] Monocytes Absolute 0.56 0.30 - 0.90 10*3/uL LAB HEMATOLOGY METHOD 01/31/2025 11:41 AM EDT [facility] Eosinophils Absolute 0.15 0.00 - 0.50 10*3/uL LAB HEMATOLOGY METHOD 01/31/2025 11:41 AM EDT [facility] Basophils Absolute 0.08 0.00 - 0.10 10*3/uL LAB HEMATOLOGY METHOD 01/31/2025 11:41 AM EDT [facility] Immature Granulocytes Absolute 0.03 0.00 - 0.06 10*3/uL LAB HEMATOLOGY METHOD 01/31/2025 11:41 AM EDT [facility] Blood Venous blood specimen / Unknown Venipuncture / Unknown 01/31/2025 11:17 AM EDT 01/31/2025 11:27 AM EDT [facility] - 01/31/2025 11:41 AM EDT Therapeutic decision making should be based on absolute values, rather than percentages. Satnam Dunne MD LAB BLOOD ORDERABLES Fi nal Result 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 12/16/2024 12/22/2024 Assessment Noted Time PHQ-9 Depression Total Score: 0 09/01/19 25 3:26 PM EDT A fall risk assessment has been complete d for the patient 01/31/2025 11:28 AM EDT A Body Mass Index follow-up plan has been documented for the patient 01/26/2025 11:42 AM EDT documented as of this encounter Care Teams Rec Therapist Relationship Specialty Start Date End Date Laurie Gutierrez MD [address] [place], [place] [phone] PCP - General 12/09/23 Joshua Martínez MD [address] [facility] [id number] [place] [address] Consulting Physician Radiation Oncology 09/19/24 documented as of this encounter
--- OUTSIDE RECORDS SUMMARY | 2025-01-31 10:00 | XMS_ITS | Encounter Summary ---
Author Organization [facility] Address [address] [place] [address] Care Team Providers Care Laboratory Tech Name Role Phone Laurie Gutierrez MD Primary Care Provider [phone] Joshua Martínez MD Unavailable Reason for Visit * Reason Comments Follow-up * Episode Based Medications (Routine) - Authorized Specialty Diagnoses / Procedures Referred By Contac t Referred To Contact Diagnoses Small cell carcinoma of right lung, unspecified part of lung Procedures CARBOplatin / Etoposide Daily x 3 / Atezolizumab Every 21 Days Satnam Colvin MD [address] [place] [address] [address] Phone: tel: fax: Satnam Colvin MD [address] [place] [address] Nuria Degroot [address] [address] Phone: tel: fax: Referral ID Status Reason Start Date Expiration Date V isits Requested Visits Authorized [id number] Authorized 10/04/2024 04/05/2026 1 46 Encounter Details Date Type Department Care Team ([facility] st Contact Info) Description 01/31/2025 10:00 AM EDT Office Visit Pav [facility] [address] [facility], [address]nd [place] [phone] Estelle Bose, UNLOAD ASSOCIATE [address] [address] 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); Neoplastic (malignant) related fatigue; Drug-induced nausea and vomiting; Seizures (CMS/HCC); Small cell carcinoma of right lung, unspecified part of lung Social History Tobacco Use Types [...] any time in the past 12 m [facility], were you homeless or living [...] drink first t laurie in the morning (E[employer]-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 CLOSER) to steady your nerves or to get [...] Sign Reading Time Taken Comments Blood Pressure 111/69 01/31/2025 9:47 AM EDT Pulse 64 01/31/2025 9:47 AM EDT Temperature 36.8 C (98.3 F) 01/31/2025 9:47 AM EDT Respiratory Rate 18 01/31/2025 9:47 AM EDT Oxygen Saturation 92% 01/31/2025 9:47 AM EDT Inhaled Oxygen Concentration - - Weight 103 kg (227 lb 8.2 oz) 01/31/2025 9:47 AM EDT Height - - Body Mass Index 35.63 01/17/2025 2:23 PM EDT documented in this encounter Functional Status * Calculated C-SSRS Risk Score (Lifetime/Recent) Answer Date of Assessment Author No Risk Indicated 01/31/2025 9:48 AM EDT Bracarlos ingram Weston R * Question Answer Date of Assessment Author 1. Wish to be (Past 1 Month) No 025 9:48 AM EDT Jerri Weston R 2. Non-Specific Active Suici radha Thoughts (Past 1 Month) No 01/31/2025 9:48 AM EDT Jerri Va enix R 6. Suicidal Behavior (Lifetime) No 9:48 AM EDT Jerri Weston R documented as of this encounter Miscellaneous Notes * Progress Notes - Estelle Bose APRN - 01/31/2025 10:00 AM EDT Medical Oncology Clinic Note Patient Name: Teresa Rivera Date of : 1960 64 y.o. Referring Physician:Satnam Colvin MD [address] [place] [phone] Encounter Date: 01/31/2025 History of Present Illness 63-year-old female with a past medical history of atrial flutter status post ablation, type 2 diabetes mellitus, chronic essential hypertension, chronic pain, depression and anxiety presents to the clinic for recurrent small-cell lung cancer. Her oncology history is noted below. Today she reports overall feeling better. She is trying to walk better with a right-sided weakness. Has home physical therapy. Interval History: Here today with her son for follow up. Has been feeling fatigued, sleeping well. Eating & drinking well, has an altered taste, & occasional nausea. Previously last seen by Infectious Disease on 01/26, completed Cefepime 12/16-01/26/25. Has been having some difficulty getting blood taken, not interested in a port placement. Has some muscle weakness, some recent falls, uses walker at home & wheelchair for long distances, states she's not interested in Physical Therapy at this time. Has intermittent swelling in bilateral ankles. States she's had a rash on her buttocks & vaginal area for the past week with no open wound. Denies fever, dizziness, lightheadedness, vision changes, headaches, tinnitus, oral lesions, diarrhea/constipation, neuropathy. A comprehensive 14 point ROS was el icited and was negative except as noted in HPI. Current Treatment Plan History: Carboplatin Etoposide Atezolizumab: C1 10/04- Prior Treatment History: Craniotomy 08/31/24 WBRT 10/24-11/07/24 Oncology History: - Initially diagnosed with [id number], stage IIIA limited stage of the right [...] Start date: 09/08/2023 End date: 10/06/2023 - Patient has been off tx since October 2023 - Presented with 3 weeks of right-sided weakness on 08/31/2024. - CT head 2.9 x 3.2 x 3.2 cm the left paramedian superior frontal broad-based extra-axial hyperdense hemorrhage with surrounding vasogenic edema; posterior superior sagittal venous thrombosis noted; Left cerebral convexity subdural hemorrhage measuring up to 4 mm with no midline shift - CTV head large filling defect within the superior sagittal sinus in this region consistent with thrombus and/or tumor invasion causing near occlusion of the sinus - CT cervical and lumbar spine shows chronic degenerative changes with no acute fractures - [address] head was stable - 09/01 CT CAP for cancer staging shows no [...] of brain mass: Small-cell lung cancer - Patient discharged on 09/09 with Keppra 500 mg [...] was changed to 50 twice daily short-acting [id number] for seizures while in the infusion room [...] start apixaban 12/30. IV antibiotics until mid Sep. Also had rapid AFib for which metoprolol dose was increasedan added low- dose Cardizem. Past Medical, Surgical, Family and Social History: Past Medical History[1] Surgical History[2] Brain surgery in 2002 or 2003 for tumor removal (non-cancerous). Family History[3] Social History[4] Allergies: Allergies[5] Medications: Current Medications[6] Objective: Visit Vitals BP 111/69 (BP Location: Right arm, Patient Position: Sitting, BP Cuff Size: Large adult) Pulse 64 Temp 36.8 ??C (98.3 ??F) (Oral) Wt 103 kg (227 lb 8.2 oz) SpO2 92% BMI 35.63 kg/m?? ECOG 2 Physical Exam Constitutional: Appearance: Normal appearance. HENT: Head: Normocephalic. Mouth/Throat: Mouth: Mucous membranes are moist. Eyes: Conjunctiva/sclera: Conjunctivae normal. Cardiovascular: Rate and Rhythm: Normal rate and regular rhythm. Heart sounds: Normal heart sounds. Pulmonary: Effort: Pulmonary effort is normal. Breath sounds: Normal breath sounds. Abdominal: General: Bowel sounds are normal. Palpations: Abdomen is soft. Musculoskeletal: General: Normal range of motion. Cervical back: Normal range of motion. Right ankle: Swelling present. Left ankle: Swelling present. Skin: General: Skin is warm and dry. Coloration: Skin is pale. Findings: Rash present. Neurological: General: No focal deficit present. Mental Status: She is alert and oriented to person, place, and time. Mental status is at baseline. Motor: Weakness present. Psychiatric: Mood and Affect: Mood normal. Behavior: Behavior normal. Thought Content: Thought content normal. Judgment: Judgment normal. Labs: Lab Results Component Value Date WBC 6.75 01/31/2025 HGB 10.1 (L) 01/31/2025 HCT 32.5 (L) 01/31/2025 MCV 103 (H) 01/31/2025 PLT 172 01/31/2025 Lab Results Component Value Date NEUTROABS 4.98 01/31/2025 Lab Results Component Value Date GLUCOSE 110 (H) 01/31/2025 BUN 7 (L) 01/31/2025 CREATININE 0.67 01/31/2025 BCR 10 01/31/2025 NA 143 01/31/2025 K 4.7 01/31/2025 CL 111 (H) 01/31/2025 CO2 18 (L) 01/31/2025 CA 9.6 08/25/2013 ALBUMIN 2.6 (L) 01/31/2025 ALKPHOS 120 01/31/2025 BILITOT 0.5 01/31/2025 Lab Results Component Value Date TSH 1.46 01/31/2025 Imaging: MD previously visualized the recent imaging and discussed the current radiology findings with the patient in detail and gave copies of the reports to the patient and answered all questions. CT Head 12/16/24 IMPRESSION: Swelling and enhancement of the superficial soft tissues and adjacent dura associated with the siteof prior extra-axial metastasis resection in the left superior parietal skull concerning for postoperative infection. CT Angio Pulmonary 12/16/24 IMPRESSION: Bilateral segmental and subsegmental pulmonary emboli [...] upper lobe likely relating to postobstructive pneumonia. CT Chest Abdomen Pelvis 09/01/24 IMPRESSION: 1. No acute findings in the chest. 2. No acute findings in the abdomen or pelvis. 3. No evidence of metastatic disease within the chest, abdomen or pelvis. MRI Head 09/01/24 IMPRESSION: 1. Enhancing extra-axial mass in the left frontal [...] compared to prior exam. No significant midline shift. Assessment and Plan: Teresa Rivera is a 64 y.o. female with PMH of atrial flutter status post ablation, type 2 diabetesmellitus, chronic essential hypertension, chronic pain, depression and anxiety with recurrent small-cell cancer of the lung. # Extensive stage small-cell lung cancer Cancer Staging No matching staging information was found for the patient. Cancer management: Teresa Rivera is diagnosed with extensive stage [...] Regimen: Carbo etoposide with whole-brain radiation - MD previously reviewed liver and renal function as well as bone marrow function in relationship to this patient's ability to tolerate systemic cancer treatment (and adjusted dosing and schedule based on their individual liver, renal and bone marrow function). I have personally calculated and ordered chemotherapy. - Received cycle 1 and complicated by sepsis due to febrile neutropenia due to pneumonia, readmission 10/25-10/31 for worsening pneumonia and acute hypoxic respiratory failure. Status post broad-spectrum antibiotics and improved. - Hospitalization in November for seizures. Also acute kidney injury - End November to December 22 for craniotomy site infection and also found to have bilateral pulmonary embolism. - Be antibiotics until around mid January. - Worsening [...] A follow-up appointment is scheduled for 01/31/2025. Plan 01/31/25 - Continue with C3 today - RTC in 3 weeks # Infection Scalp infection: the wound appears to be healing well. Completed Cefepime 12/16-01/26/25 # Seizures MRI of the head 12/02-with no evidence of new disease. There is a residual cleft him enhancing tissue along the left falx which may be residual tumor. Started on Keppra 1000 mg twice daily. Decreased to 500 mg twice a day and plan to continue that. # Chemotherapy toxicity Febrile neutropenia-sepsis with acute hypoxic respiratory failure. Grade 3-requiring hospitalization. Nausea and Anorexia-probably disease related and not chemotherapy related. On olanzapine 5 mg at bedtime & prn Zofran/Compazine. Altered taste, no thrush present Muscle weakness- recent falls, uses walker/wheelchair, not interested in Physical Therapy at this time Rash- states it's on buttocks & vaginal area, has been using butt balm/cream, advised to use a pad instead of depends 08/12 # Medical comorbidities Diabetes mellitus type 2-was on Januvia, Jardiance, and Metformin. Insulin in the hospital. Plan to continue home medications Atrial flutter status post ablation on dual antiplatelets. Resume. Chronic essential hypertension-continue Coreg Chronic pain-continue gabapentin -refilled 11/08/2024 COPD-continue home inhalers. Not oxygen dependent. Depression and anxiety-continue home fluoxetine and hydroxyzine as needed. Estelle Bose, UNLOAD ASSOCIATE [1] Past Medical History: Diagnosis Date A-fib ([facility]) Anxiety Brain tumor ([facility]/HCC) Chemotherapy-induced nausea and vomiting 08/28/2023 COPD (chronic obstructive pulmonary disease) ([facility]) Depression Heart failure Hyperlipidemia Hypertension Osteoarthritis Pneumonia Small cell lung cancer ([facility]/HCC) Type 2 diabetes mellitus [2] Past Surgical History: Procedure Laterality Date BRAIN SURGERY TUBAL LIGATION N/A Tubal Ligation from [facility] [employer] TYMPANOSTOMY TUBE PLACEMENT N/A Ear Surgery Eustachian Tube from [facility] [3] Family History Problem Relation Name Age [...] Nausea and Vomiting Lisinopril Cough Meloxicam Nausea [6] Current Outpatient Medications: atorvastatin (Lipitor) 40 MG tablet, Take 1 tablet by mouth every evening., Disp: , Rfl: cefepime (Maxipime) 1 g injection, Infuse 6 gm continuously every 24 hours. Mix per institutional policy., Disp: 1 each, Rfl: 0 cetirizine (ZyrTEC) 10 MG tablet, Take 1 tablet by mouth daily., Disp: , Rfl: cyproheptadine (Periactin) 4 MG tablet, Take 1 tablet by mouth 2 times a day., Disp: , Rfl: ferrous sulfate 325 (65 [...] a day as needed., Disp: , Rfl: levETIRAcetam (Keppra) 500 MG [...] tablet by mouth nightly., Disp: , Rfl: OLANZapine (ZyPREXA) 5 MG tablet, Take 1 [...] tablet by mouth Daily., Disp: , Rfl: Continuous Glucose Sensor (Dexcom G7 Sensor) misc, USE TO MEASURE BLOOD SUGAR DIRECTED. REPLACE SENSOR EVERY 10 DAYS., Disp: , Rfl: dilTIAZem CD (Cardizem CD) 120 MG 24 hr capsule, Take 1 capsule by mouth nightly. (Patient not taking: Reported on 01/31/2025), Disp: 30 capsule, Rfl: 1 estrogens, conjugated, (Premarin) vaginal cream, Insert 0.25 applicatorsful twice a week by vaginalroute., Disp: , Rfl: pen needle, diabetic 31G X 5 MM misc, Use as directed with insulin pen. (Patient not taking: Reported on 01/31/2025), Disp: 100 each, Rfl: 11 * Progress Notes - Rupa De Santiago, PharmD - 01/31/2025 10:00 AM EDT Pharmacy Hematology/Oncology Treatment Note Teresa Rivera is a 64 y.o. female with ES SCLC Cancer Staging No matching staging information was found for the patient. . Study Patient: no Treatment Plan reviewed for Carboplatin/Etoposide/Atezolizumab every 21 days. [x] Follow-Up Clinical Review for Cycle 3 Days 1-3 [] Follow-Up Clinical Review for [...] UTI. She will follow up with her principal mechanical engineer felton. Creatinine today is 2.81 from 0.61 1 week ago, and Mg is 0.8. Planned for re-draw CMP and give 1L fluids and 4g Mg IV, but in infusion, patient became convulsive and non- responsive, so she will go straight to the ED for evaluation and HOLD cycle 3. 01/31/25: Cycle 3 was delayed for admission, seizures, new bilateral PE (now on Xarelto), sepsis, A Fib with RVR, and PNA. She completed a course of cefepime on 01/26. She has not experienced any recent seizures, and Keppra dose adjusted to 500 mg BID at last visit. She is doing much better today andis okay to resume treatment. Treatment plan weight updated for >10% weight loss. She will receive 4 mg IV in infusion, and increased oral Mg supplementation from 800 mg daily to 800 mg BID with instructions to hold for diarrhea. Today's Wt: Wt Readings from Last 1 Encounters: 01/31/25 103 kg (227 lb 1.2 oz) Dosing Wt: 103 kg Dosing Ht: 170.2 cm DosingBSA: 2.13 m2 Recent Labs: Lab Results Component Value Date WBC 6.75 01/31/2025 HGB 10.1 (L) 01/31/2025 HCT 32.5 (L) 01/31/2025 MCV 103 (H) 01/31/2025 PLT 172 01/31/2025 Lab Results Component Value Date GLUCOSE 110 (H) 01/31/2025 CALCIUM 8.1 (L) 01/31/2025 NA 143 01/31/2025 K 4.7 01/31/2025 CO2 18 (L) 01/31/2025 CL 111 (H) 01/31/2025 BUN 7 (L) 01/31/2025 CREATININE 0.67 01/31/2025 Lab Results Component Value Date ALT 9 (L) 01/31/2025 AST 56 (H) 01/31/2025 ALKPHOS 120 01/31/2025 BILITOT 0.5 01/31/2025 Lab Results Component Value Date NEUTROABS 4.98 01/31/2025 Lab Results Component Value Date MG 1.2 (L) 01/31/2025 Lab Results Component Value Date TSH 1.46 01/31/2025 Lab Results Component Value Date URINEPRO Negative 11/29/2024 Vitals: Visit Vitals BP 111/69 (BP Location: Right arm, Patient Position: Sitting, BP Cuff Size: Large adult) Pulse 64 Temp 36.8 ??C (98.3 ??F) (Oral) Resp 18 Other Relevant Monitoring: for carboplatin: AdjBW (BMI >25): 78.2 kg SCr: Results from last 7 days Lab Units 01/31/25 1117 CREATININE mg/dL 0.67 eCrCl: 100.3 ml/min (Min Cr of 0.7 used) Treatment/Therapy Plan: Carboplatin AUC 5 IV Day 1 Etoposide 100 mg/m2 (220 mg) IV Days 1-3 Atezolizumab 1875 mg subcutaneous Day 1 + Neulasta 6 mg subcutaneous OBI Day 3 [x] No dose adjustments made Current Treatment Plan History: Carbo/Etop/Atezo C1: 10/04-10/06/24 C2: 11/08-11/10/24 (delayed d/t WBRT and admission, Neulasta added) C3: 01/31-02/02/25 (delayed d/t seizure and admission with multiple complications) Prior Treatment History: Craniotomy 08/31/24 WBRT 10/24-11/07/24 Plan: Patient will return to clinic in 3 weeks. Will follow-up at that time. Pharmacist Attestation: Rupa De Santiago PharmD, [facility] Clinical Oncology Pharmacist documented in this encounter Plan of Treatment Upcoming Encounters Date Type Department Care Team (Late st Contact Info) Description 02/21/2025 8:45 AM EDT Clinical Support Pav [facility] [address] [facility] [place] [address] 02/21/2025 9:20 AM EDT Office Visit Pav [facility] [address] [facility] [place] [address] Satnam Colvin MD [address] [facility] Nuria Brownson [facility] [address] [place] [phone] 02/21/2025 11:00 AM EDT Appointment [facility] [address] [place] [phone] 02/22/2025 2:30 PM EDT Appointment [facility] [address] [place] [phone] 02/23/2025 3:30 PM EDT Appointment [facility] [address] [place] [phone] 03/08/2025 1:00 PM EDT Office Visit [facility] Boykins Lacombe [address] [facility] [place] [phone] Teresita Oconnell MD [address] [place] [phone] 03/10/2025 2:20 PM EDT Appointment [facility] [address] [place] [phone] 03/10/2025 3:45 PM EDT Appointment [facility] Radiology [address], [address] [place] [phone] 03/14/2025 11:00 AM EDT Office Visit [facility] [address] [facility] [place] [address] Satnam Colvin MD [address] [facility] Nuria Degroot [facility] [address] [place] [phone] Scheduled Orders Name Type Priority Associated Diagnoses Orde r Schedule CBC and differential Lab Routine Small cell carcinoma of right lung, unspecified part of lung Expected: 02/21/2025, Expires: 02/21/2026 Comprehensive metabolic panel Lab Routine Small cell carcinoma of right lung, unspecified part of lung Expected: 02/21/2025, Expires: 02/21/2026 Magnesium Lab STAT Small cell carcinoma of right lung, unspecified part of lung Expected: 02/21/2025, Expires: 02/21/2026 documented as of this encounter Procedures Procedure Name Priority Date/Time Associated Diagnosis Comments EXTRA TUBE LIGHT GREEN TOP Routine 01/31/2025 11:17 AM EDT Extensive stage primary small cell carcinoma of lung EXTRA TUBES Routine 01/31/2025 11:17 AM EDT Extensive stage primary small cell carcinoma of lung documented in this encounter Results * Light Green Top (01/31/2025 11:17 AM EDT) Extra Hold for add-ons 01/31/2025 2:[address] [facility] Comment:Auto resulted. Blood Venous blood specimen / Unknown Venipuncture / Unknown 01/31/2025 11:17 AM EDT 01/31/2025 11:36 AM EDT Estelle Bose APRN LAB BLOOD ORDERABLES Fi nal Result 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 12/16/2024 12/22/2024 Assessment Noted Time PHQ-9 Depression Total Score: 0 09/01/19 25 3:26 PM EDT A fall risk assessment has been complete d for the patient 01/31/2025 11:28 AM EDT A Body Mass Index follow-up plan has been documented for the patient 01/26/2025 11:42 AM EDT documented as of this encounter Care Teams Laboratory Tech Relationship Specialty Start Date End Date Laurie Gutierrez MD [address] [place] [address] PCP - General 12/09/23 Joshua Martínez MD [address] [place] [phone] Consulting Physician Radiation Oncology 09/19/24 documented as of this encounter
--- OUTSIDE RECORDS SUMMARY | 2025-01-31 11:00 | XMS_ITS | Encounter Summary ---
Author Organization [facility] Address [address] [place] [address] Care Team Providers Care Inspector Toys Name Role Phone Laurie Gutierrez MD Primary Care Provider [phone] Joshua Martínez MD Unavailable Reason for Visit * Episode Based Medications (Routine) - Authorized Specialty Diagnoses / Procedures Referred By Contac t Referred To Contact Diagnoses Small cell carcinoma of right lung, unspecified part of lung Procedures CARBOplatin / Etoposide Daily x 3 / Atezolizumab Every 21 Days Satnam Colvin MD 800 [facility] N[address] [address] Phone: tel: fax: Satnam Colvin MD [address] [place] [address] [address]root [address] [address] Phone: tel: fax: Referral ID Status Reason Start Date Expiration Date V isits Requested Visits Authorized [id number] Authorized 10/04/2024 04/05/2026 1 46 Encounter Details Date Type Department Care Team (Latest Contact Info) Description 01/31/2025 11:00 AM EDT - 01/31/2025 11:59 PM EDT Hospital Encounter [facility] 1 [address] [place] [phone] Small cell carcinoma of right lung, unspecified part of lung (Primary Dx); Extensive stage primary small cell carcinoma of lung Discharge Disposition: Home or Self Care Social [...] drink first t laurie in the morning (EYE-HOT TOP LINER HELPER) to steady your nerves or to [...] Sign Reading Time Taken Comments Blood Pressure 91/45 01/31/2025 3:59 PM EDT Pulse 74 01/31/2025 3:59 PM EDT Temperature 36.9 C (98.5 F) 01/31/2025 11:25 AM EDT Respiratory Rate 18 01/31/2025 11:25 AM EDT Oxygen Saturation 95% 01/31/2025 11:25 AM EDT Inhaled Oxygen Concentration - - Weight 103 kg (227 lb 1.2 oz) 01/31/2025 11:25 A M EDT Height 170.2 cm (5' 7 ) 01/31/2025 11:25 AM EDT Body Mass Index 35.56 01/31/2025 11:25 AM EDT documented in this encounter Functional Status * Calculated C-SSRS Risk Score (Lifetime/Recent) Answer Date of Assessment Author No Risk Indicated 01/31/2025 9:48 AM EDT Va Goenix R * Question Answer Date of Assessment Author 1. Wish to be (Past 1 Month) No 025 9:48 AM EDT Mervin Guthriex R 2. Non-Specific Active Suici radha Thoughts (Past 1 Month) No 01/31/2025 9:48 AM EDT Va Guthrie enix R 6. Suicidal Behavior (Lifetime) No 9:48 AM EDT Mervin Guthriex R documented as of this encounter Medications at Time of Discharge atorvastatin (Lipitor) 40 MG tablet Take 1 tablet by mouth every evening. cetirizine (ZyrTEC) 10 MG tablet Take 1 tablet by mouth daily. Continuous Glucose Sensor (Dexcom G7 Sensor) [facility] USE TO MEASURE BLOOD SUGAR DIRECTED. REPLACE SENSOR EVERY 10 DAYS. 5 cyproheptadine (Periactin) 4 MG tablet Take 1 tablet by mouth 2 times a day. dilTIAZem CD (Cardizem CD) 120 MG 24 hr capsule Take 1 capsule by mouth nightly. 30 capsule 1 5 estrogens, conjugated, (Premarin) vaginal cream Insert 0.25 applicatorsful twice a week by vaginal route. ferrous sulfate 325 (65 Fe) MG tablet [...] 02/02/20 25 documented as of this encounter Plan of Treatment Upcoming Encounters Date Type Department Care Team (Late st Contact Info) Description 02/21/2025 8:45 AM EDT Clinical Support [facility] [address] [phone] 02/21/2025 9:20 AM EDT Office Visit [facility] [address] [phone] Satnam Colvin MD 800 [facility] Nuria Degroot [facility] [address] [place] [address] 02/21/2025 11:00 AM EDT Appointment [facility] 1 [address] [place] [phone] 02/22/2025 2:30 PM EDT Appointment [facility] 1 [address] [place] [phone] 02/23/2025 3:30 PM EDT Appointment [facility] 1 [address] [place] [phone] 03/08/2025 1:00 PM EDT Office Visit [facility] [place] 800 [facility]. [address] [place] [phone] Teresita Oconnell MD [address] [place] [phone] 03/10/2025 2:20 PM EDT Appointment [facility] [address] [place] [phone] 03/10/2025 3:45 PM EDT Appointment [facility] S Radiology [address], [address] [place] [phone] 03/14/2025 11:00 AM EDT Office Visit [facility] [address] [phone] Satnam Colvin MD 800 [facility] Nuria Degroot [facility] [place] [address] [place] [address] documented as of this encounter Visit Diagnoses Diagnosis Small cell carcinoma of right lung, unspecified part of lung- Primary Extensive stage primary small cell carcinoma of lung documented in this encounter Administered Medications Inactive Administered Medications - up to 3 most recent administrations Medication Order MAR Action Action Date Dose Rate Site aprepitant (Cinvanti) 130 MG/18ML IV 130 mg 130 mg, Intravenous, Once, 1 dose, On Thu01/31/25 at 1245, RoutineIndications:Small cell carcinoma of right lung, unspecified part of lung New Bag 01/31/2025 4:06 PM EDT 130 mg Atezolizumab-Hyaluronida se-tqjs (Tecentriq Hybreza) [id number] MG-UT/15ML injection solution 1,875 mg 1,875 mg, Subcutaneous, Once, 1 dose, On Thu01/31/25 at 1315, RoutineIndications:Small cell carcinoma of right lung, unspecified part of lung New Bag 01/31/2025 2:06 PM EDT 1,875 mg Right Outer Thigh CARBOplatin (Paraplatin) 630 mg in sodium chloride 0.9 % 250 mL IVPB 630 mg (rounded from 626 mg, Target AUC = 5), Intravenous, at 716 mL/hr, Administer over 30 Minutes, Once, Hazardous Drug-Tier 1 Precautions. Dispose in BLACK Hazardous Waste Container. Chemotherapy: refer to A14-065., On Thu01/31/25 at 1330, For 1 dose, Pharmacist to calculate carboplatin dose based on today's Scr. If dose changes by > 5%, verify new dose with physician.Indications:Sm all cell carcinoma of right lung, unspecified part of lung New Bag 01/31/2025 2:20 PM EDT 630 mg 716 mL/hr dexamethasone (Decadron) tablet 12 mg 12 mg, Oral, Once, 1 dose, On Thu01/31/25 at 1245, RoutineIndications:Small cell carcinoma of right lung, unspecified part of lung Given 01/31/2025 12:50 PM EDT 12 mg etoposide (Toposar) 220 mg in sodium chloride 0.9 % 500 mL IVPB 220 mg (rounded from 213 mg = 100 mg/m2 2.13 m2 Treatment Plan BSA from Recorded weight), Intravenous, at 576 mL/hr, Administer over 60 Minutes, Once, Hazardous Drug-Tier 1 Precautions. Dispose in BLACK Hazardous Waste Container. Use 0.2 micron filter. Chemotherapy: refer to A14-065., On Thu01/31/25 at 1400, For 1 dose, NS 500 mL; Precipitation may occur with concentrations >0.4 mg/mL. Larger diluent volumes may be warranted dependent upon the patient's weight.Indications:Small cell carcinoma of right lung, unspecified part of lung New Bag 01/31/2025 2:59 PM EDT 220 mg 576 mL/hr magnesium sulfate IVPB 4 g 4 g, Intravenous, Once as needed, 1 dose, Starting on Thu01/31/25 at 1220, Until Thu01/31/25 at 1602, Routine, For magnesium value 1.2 to 1.4 and patient having GREATER THAN 3 loose stools per dayIndications:Small cell carcinoma of right lung, unspecified part of lung Restarted 01/31/2025 2:59 PM EDT 50 mL/hr New Bag 01/31/2025 1:14 PM EDT 4 g 50 mL/hr ondansetron ODT (Zofran-ODT) disintegrating tablet 16 mg 16 mg, Oral, Once, 1 dose, On Thu01/31/25 at 1245, RoutineIndications:Small cell carcinoma of right lung, unspecified part of lung Given 01/31/2025 12:50 PM EDT 16 mg documented in this encounter Additional Health Concerns Infection Onset Date Last Indicated Resolved Time 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 12/16/2024 12/22/2024 Assessment Noted Time PHQ-9 Depression Total Score: 0 09/01/19 25 3:26 PM EDT A fall risk assessment has been complete d for the patient 01/31/2025 11:28 AM EDT A Body Mass Index follow-up plan has been documented for the patient 01/26/2025 11:42 AM EDT documented as of this encounter Care Teams Inspector Toys Relationship Specialty Start Date End Date Laurie Gutierrez MD [address] [place] [address] PCP - General 12/09/23 Joshua Martínez MD [address] [place] [phone] Consulting Physician Radiation Oncology 09/19/24 documented as of this encounter
--- OUTSIDE RECORDS SUMMARY | 2025-02-01 12:16 | XMS_ITS | Encounter Summary ---
Author Organization [facility] Address [address] [place] [address] Care Team Providers Care Compliance Manager Name Role Phone Laurie Gutierrez MD Primary Care Provider [phone] Joshua Martínez MD Unavailable Reason for Visit * Episode Based Medications (Routine) - Authorized Specialty Diagnoses / Procedures Referred By Contac t Referred To Contact Diagnoses Small cell carcinoma of right lung, unspecified part of lung Procedures CARBOplatin / Etoposide Daily x 3 / Atezolizumab Every 21 Days Satnam Colvin MD 800 [facility] N[address] [address] Phone: tel: fax: Satnam Colvin MD [address] [place] [address] [address] Degroot [address] [address] Phone: tel: fax: Referral ID Status Reason Start Date Expiration Date V isits Requested Visits Authorized [id number] Authorized 10/04/2024 04/05/2026 1 46 Encounter Details Date Type Department Care Team (Latest Contact Info) Description 02/01/2025 12:16 PM EDT - 02/01/2025 11:59 PM EDT Hospital Encounter [facility] 1 [address] [place] [phone] Small cell carcinoma of right lung, unspecified part of lung (Primary Dx) Discharge Disposition: Home [...] living in a retirement (including now)? No 12/16/2024 CAGE ASSESSMENT Answer [...] drink first t laurie in the morning (EYE-AUDIT MANAGER) to steady your nerves or to [...] Sign Reading Time Taken Comments Blood Pressure 108/70 02/01/2025 3:56 PM EDT Pulse 61 02/01/2025 3:56 PM EDT Temperature 36.5 C (97.7 F) 02/01/2025 12:17 PM EDT Respiratory Rate 16 02/01/2025 12:17 PM EDT Oxygen Saturation 95% 02/01/2025 12:17 PM EDT Inhaled Oxygen Concentration - - Weight 105 kg (232 lb 9.4 oz) 02/01/2025 12:17 P M EDT Height 170.2 cm (5' 7 ) 02/01/2025 12:17 PM EDT Body Mass Index 36.43 02/01/2025 12:17 PM EDT documented in this encounter Medications at Time of Discharge atorvastatin (Lipitor) 40 MG tablet Take 1 tablet by mouth every evening. cetirizine (ZyrTEC) 10 MG tablet Take 1 tablet by mouth daily. Continuous Glucose Sensor (Coridon G7 Sensor) [facility] USE TO MEASURE BLOOD SUGAR DIRECTED. REPLACE [...] controlled-release Take 1 tablet by mouth Daily. documented as of this encounter Plan of Treatment Upcoming Encounters Date Type Department Care Team ([facility] st Contact Info) Description 02/21/2025 8:45 AM EDT Clinical Support [facility] [address] [phone] 02/21/2025 9:20 AM EDT Office Visit [facility] [address] [address] Satnam Colvin MD 800 [facility] Nuria Degroot [facility] [address] [place] [address] 02/21/2025 11:00 AM EDT Appointment [facility] 1 [address] [place] [address] 02/22/2025 2:30 PM EDT Appointment [facility] 1 [address] [place] [address] 02/23/2025 3:30 PM EDT Appointment [facility] 1 [address] [place] [phone] 03/08/2025 1:00 PM EDT Office Visit [facility] [place] [address] [place] [phone] Teresita Oconnell MD [address] [place] [phone] 03/10/2025 2:20 PM EDT Appointment [facility] [address] [place] [address] 03/10/2025 3:45 PM EDT Appointment [facility] S Radiology [address], 1st [place] [address] 03/14/2025 11:00 AM EDT Office Visit [facility] 800 [facility], 2nd [place] [phone] Satnam Colvin MD 800 [facility] Nuria Degroot [facility] [address] [place] [phone] documented as of this encounter Visit Diagnoses Diagnosis Small cell carcinoma of right lung, unspecified part of lung- Primary documented in this encounter [...] micron filter. Chemotherapy: refer to A14-065., On Thu02/01/25 at 1430, For 1 dose, NS 500 mL; Precipitation may occur with concentrations >0.4 mg/mL. 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 12/16/2024 12/22/2024 Assessment Noted Time PHQ-9 Depression Total Score: 0 09/01/19 3:26 PM EDT A fall risk assessment has been complete d for the patient 02/01/2025 12:17 PM EDT A Body Mass Index follow-up plan has been documented for the patient 02/01/2025 4:01 PM EDT documented as of this encounter Care Teams Compliance Manager Relationship Specialty Start Date End Date Laurie Gutierrez MD [address] [place] [address] PCP - General 12/09/23 Joshua Martínez MD [address] [place] [phone] Consulting Physician Radiation Oncology 09/19/24 documented as of this encounter
--- OUTSIDE RECORDS SUMMARY | 2025-02-02 12:58 | XMS_ITS | Encounter Summary ---
Author Organization [facility] Address [address] [place] [address] Care Team Providers Care Music Rehabilitation Therapist Name Role Phone Laurie Gutierrez MD Primary Care Provider [phone] Joshua Martínez MD Unavailable Reason for Visit * Episode Based Medications (Routine) - Authorized Specialty Diagnoses / Procedures Referred By Contac t Referred To Contact Diagnoses Small cell carcinoma of right lung, unspecified part of lung Procedures CARBOplatin / Etoposide Daily x 3 / Atezolizumab Every 21 Days Satnam Colvin MD [address] [place] [address] [address] Phone: tel: fax: Satnam Colvin MD [address] [place] [address] [address] Degroot [address] [address] Phone: tel: fax: Referral ID Status Reason Start Date Expiration Date V isits Requested Visits Authorized [id number] Authorized 10/04/2024 04/05/2026 1 46 Encounter Details Date Type Department Care Team (Latest Contact Info) Description 02/02/2025 12:58 PM EDT - 02/02/2025 11:59 PM EDT Hospital Encounter [facility] 800 [place] [phone] Small cell carcinoma of right lung, unspecified [...] in a long term (including now)? No 12/16/2024 CAGE ASSESSMENT Answer [...] drink first t laurie in the morning (EYE-BROWNING PROCESSOR) to steady your nerves or to [...] Sign Reading Time Taken Comments Blood Pressure 106/72 02/02/2025 2:45 PM EDT Pulse 73 02/02/2025 2:45 PM EDT Temperature 36.8 C (98.2 F) 02/02/2025 1:02 PM EDT Respiratory Rate 16 02/02/2025 2:45 PM EDT Oxygen Saturation 94% 02/02/2025 1:02 PM EDT Inhaled Oxygen Concentration - - Weight 106 kg (232 lb 12.9 oz) 02/02/2025 1:02 P M EDT Height 170.2 cm (5' 7 ) 02/02/2025 1:02 PM EDT Body Mass Index 36.46 02/02/2025 1:02 PM EDT documented in this encounter Medications at Time of Discharge atorvastatin (Lipitor) 40 MG tablet Take 1 tablet by mouth every evening. cetirizine (ZyrTEC) 10 MG tablet Take 1 tablet by mouth daily. Continuous Glucose Sensor (The Smartphone Physical G7 Sensor) [facility] USE TO MEASURE BLOOD SUGAR DIRECTED. REPLACE [...] [facility] st Contact Info) Description 02/21/2025 8:45 AM EDT Clinical Support [facility] [address] [address] 02/21/2025 9:20 AM EDT Office Visit [facility] [address] [address] Satnam Colvin MD 800 [facility] Nuria Degroot [facility] [address] [place] [address] 02/21/2025 11:00 AM EDT Appointment [facility] 1 [address] [place] [address] 02/22/2025 2:30 PM EDT Appointment [facility] 1 [address] [place] [address] 02/23/2025 3:30 PM EDT Appointment [facility] 1 [address] [place] [address] 03/08/2025 1:00 PM EDT Office Visit [facility] [place] [address] [place] [phone] Teresita Oconnell MD [address] [place] [address] 03/10/2025 2:20 PM EDT Appointment [facility] [address] [place] [address] 03/10/2025 3:45 PM EDT Appointment [facility] S Radiology [address], 1st [place] [address] 03/14/2025 11:00 AM EDT Office Visit [facility] 800 [facility], [address]nd [place] [phone] Satnam Colvin MD [address] Nuria [address]ane [facility] [place] [address] [place] [phone] documented as of this encounter Visit Diagnoses [...] filter. Chemotherapy: refer to A14-065., On Corrina 02/02/25 at 1400, For 1 dose, NS 500 mL; Precipitation may occur with concentrations >0.4 mg/mL. Larger diluent volumes may be warranted dependent upon the patient's weight.Indications:Small cell carcinoma of right lung, unspecified part of lung New Bag 02/02/2025 1:47 PM EDT 220 mg 576 mL/hr ondansetron ODT (Zofran-ODT) disintegrating tablet 16 mg 16 mg, Oral, Once, 1 dose, On Corrina 02/02/25 at 1330, RoutineIndications:Small cell carcinoma of right lung, unspecified part of lung Given 02/02/2025 1:09 PM EDT 16 mg pegfilgrastim (Neulasta) 6 MG/0.6ML on-body injector 6 mg 6 mg, Subcutaneous, Once, 1 dose, On Corrina 02/02/25 at 1330, RoutineIndications:Small cell carcinoma of right lung, unspecified part of lung Given 02/02/2025 1:38 PM EDT 6 mg Right Upper Abdomen documented in this encounter Additional Health Concerns Infection Onset Date Last Indicated Resolved Time 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 12/16/2024 12/22/2024 Assessment Noted Time PHQ-9 Depression Total Score: 0 09/01/19 3:26 PM EDT A fall risk assessment has been complete d for the patient 02/02/2025 1:02 PM EDT A Body Mass Index follow-up plan has been documented for the patient 02/02/2025 2:50 PM EDT documented as of this encounter Care Teams Music Rehabilitation Therapist Relationship Specialty Start Date End Date Laurie Gutierrez MD [address] [place] [address] PCP - General 12/09/23 Joshua Martínez MD [address] [place], [place] [address] [address] Consulting Physician Radiation Oncology 09/19/24 documented as of this encounter
[2025-02-10] VITALS (7 sets, daily range): BP systolic 91–125; BP diastolic 49–107; PULSE 78–107; RESP 18; TEMP 37.2–37.3; O2SAT 89–99; BMI 31.3
--- NOTE | 2025-02-10 13:32 | ECG_ITS ---
APPROVED REPORT Exam: Resting ECG HR:94 bpm ECG Measurements Heart Rate 94 AXES IN 134 P 66 QRSd 98 QRS 23 QT 353 T 65 QTc 404 Conclusion Sinus rhythm Normal axis Normal intervals No STEMI Baseline artifact makes this difficult to interpret completely Electronically signed by : Ben Jones, 02/10/2025 16:32:42
--- OUTSIDE RECORDS SUMMARY | 2025-02-10 13:34 | XMS_ITS | Encounter Summary ---
Author Organization [facility] Address [address] [place] [address] Care Team Providers Care Feather Mixer Name Role Phone Laurie Gutierrez MD Primary Care Provider [phone] Joshua Martínez MD Unavailable Encounter Details Date [...] t laurie in the morning (EYE-CLINICAL PSYCHOLOGY TEACHER) to steady your nerves or to [...] StagerMarely RN 6. Suicidal Behavior (Lifetime) No 1:20 PM EDT MarybelrJanette RN documented as of this encounter Plan of Treatment Upcoming Encounters Date Type Department Care Team ([facility] Contact Info) Description 02/21/2025 8:45 AM EDT Clinical Support [facility] 800 [facility], 2nd [place] [address] 02/21/2025 9:20 AM EDT Office Visit [facility] 800 [facility], 2nd [place] [address] Satnam Colvin MD 800 [facility] Nuria Degroot [facility] [place] [address] [place] [address] 02/21/2025 11:00 AM EDT Appointment [facility] 1 [address] [place] [address] 02/22/2025 2:30 PM EDT Appointment [facility] 1 [address] [place] [address] 02/23/2025 3:30 PM EDT Appointment [facility] 1 [address] [place] [phone] 03/08/2025 1:00 PM EDT Office Visit [facility] [place] 800 [facility]. [address] [place] [phone] Teresita Oconnell MD [address] [place] [phone] 03/10/2025 2:20 PM EDT Appointment [facility] [address], [address]nd [place] [address] 03/10/2025 3:45 PM EDT Appointment [facility] Radiology 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 12/16/2024 12/22/2024 Assessment Noted Time PHQ-9 Depression Total Score: 0 09/01/19 25 3:26 PM EDT A fall risk assessment has been complete d for the patient 11/29/2024 1:14 PM EDT A Body Mass Index follow-up plan has been documented for the patient 12/23/2024 8:17 AM EDT documented as of this encounter Care Teams Feather Mixer Relationship Specialty Start Date End Date Laurie Gutierrez MD [address] [place] [address] PCP - General 12/09/23 Joshua Martínez MD [address] [place] [address] [address] [place] [phone] Consulting Physician Radiation Oncology 09/19/24 documented as of this encounter
--- OUTSIDE RECORDS SUMMARY | 2025-02-10 13:34 | XMS_ITS | Encounter Summary ---
Author Organization Healthcare Address [address] [place] [address] Care Team Providers Care Stud Master/Mistress Name Role Phone Laurie Gutierrez MD Primary Care Provider [phone] Joshua Martínez MD Unavailable Encounter Details Date Type Department Care Team (Late st Contact Info) Description 12/26/2024 Lab Requisition [facility] [address], [address]st [place] [address] Yosi Richmond MD [address] [place] [address] Infection following a procedure, other [...] drink first t laurie in the morning (EYE-FRUIT PICKER MACHINE OPERATOR) to steady your nerves or [...] Health Care Facility st Contact Info) Description 02/21/2025 8:45 AM EDT Clinical Support [facility] 800 [facility] 2nd [place] [address] 02/21/2025 9:20 AM EDT Office Visit [facility] 800 [facility], [address] [place] [address] Satnam Colvin MD 800 [facility] Nuria Degroot [facility] [address] [place] [address] 02/21/2025 11:00 AM EDT Appointment [facility] 1 [address] [place] [address] 02/22/2025 2:30 PM EDT Appointment [facility] 1 [address] [place] [address] 02/23/2025 3:30 PM EDT Appointment [facility] 1 [address] [place] [address] 03/08/2025 1:00 PM EDT Office Visit [facility] [place] Wenceslao [address] [place] [address] Teresita Oconnell MD [address] [place] [address] 03/10/2025 2:20 PM EDT Appointment [facility] [address], [address]nd [place] [address] 03/10/2025 3:45 PM EDT Appointment [facility] [address], [address]st [place] [address] 03/14/2025 11:00 AM EDT Office Visit [facility] 800 [facility], [address]nd [place] [address] Satnam Colvin MD 800 [facility] Nuria Degroot B[address] [place] [address] documented as of this encounter Procedures Procedure [...] LAB HEMATOLOGY METHOD 12/26/2024 12:34 PM EDT [facility] RBC Count 2.86(L) 3.90 - 5.20 10*6/uL LAB HEMATOLOGY METHOD 12/26/2024 12:34 PM EDT [facility] HGB 8.5(L) 11.2 - 15.7 g/dL LAB HEMATOLOGY METHOD 12/26/2024 12:34 PM EDT [facility] HCT 27.8(L) 34.0 - 45.0 % LAB HEMATOLOGY METHOD 12/26/2024 12:34 PM EDT [facility] Platelet Count 163 155 - 369 10*3/uL LAB HEMATOLOGY METHOD 12/26/2024 12:34 PM EDT [facility] MCV 97 79 - 98 fL LAB HEMATOLOGY METHOD 12/26/2024 12:34 PM EDT [facility] MCH 29.7 26.0 - 32.0 pg LAB HEMATOLOGY METHOD 12/26/2024 12:34 PM EDT [facility] MCHC 30.6(L) 30.7 - 35.5 g/dL LAB HEMATOLOGY METHOD 12/26/2024 12:34 PM EDT [facility] RDW 20.3(H) 11.5 - 14.5 % LAB HEMATOLOGY METHOD 12/26/2024 12:34 PM EDT [facility] MPV 11.1 8.8 - 12.5 fL LAB HEMATOLOGY METHOD 12/26/2024 12:34 PM EDT [facility] nRBC 0.0 <=0.0 per 100 WBCs LAB HEMATOLOGY METHOD 12/26/2024 12:34 PM EDT [facility] Differential Type Automated LAB HEMATOLOGY METHOD 12/26/2024 12:34 PM EDT [facility] Neutrophils % 73 % LAB HEMATOLOGY METHOD 12/26/2024 12:34 PM EDT [facility] Lymphocytes % 12 % LAB HEMATOLOGY METHOD 12/26/2024 12:34 PM EDT [facility] Monocytes % 9 % LAB HEMATOLOGY METHOD 12/26/2024 12:34 PM EDT [facility] Eosinophils % 4 % LAB HEMATOLOGY METHOD 12/26/2024 12:34 PM EDT [facility] Basophils % 1 % LAB HEMATOLOGY METHOD 12/26/2024 12:34 PM EDT [facility] Immature Granulocytes % 1 % LAB HEMATOLOGY METHOD 12/26/2024 12:34 PM EDT [facility] Neutrophils Absolute 6.87(H) 1.60 - 6.10 10*3/uL LAB HEMATOLOGY METHOD 12/26/2024 12:34 PM EDT [facility] Lymphocytes Absolute 1.14(L) 1.20 - 3.90 10*3/uL LAB HEMATOLOGY METHOD 12/26/2024 12:34 PM EDT [facility] Monocytes Absolute 0.81 0.30 - 0.90 10*3/uL LAB HEMATOLOGY METHOD 12/26/2024 12:34 PM EDT [facility] Eosinophils Absolute 0.34 0.00 - 0.50 10*3/uL LAB HEMATOLOGY METHOD 12/26/2024 12:34 PM EDT [facility] Basophils Absolute 0.10 0.00 - 0.10 10*3/uL LAB HEMATOLOGY METHOD 12/26/2024 12:34 PM EDT [facility] Immature Granulocytes Absolute 0.09(H) 0.00 - 0.06 10*3/uL LAB HEMATOLOGY METHOD 12/26/2024 12:34 PM EDT [facility] Blood Venous blood specimen / Unknown 12/26/2024 10:50 AM EDT 12/26/2024 12:31 PM EDT Narrative [facility] - 12/26/2024 12:34 PM EDT Therapeutic decision making should be based on absolute values, rather than percentages. us Yosi Richmond MD LAB BLOOD ORDERABLES Final Result [facility] [address] [place] [address] * Urea Nitrogen, Plasma (12/26/2024 10:50 AM EDT) BUN, Plasma 14 8 - 23 mg/dL 12/26/2024 12:49 PM EDT [facility] Blood Venous blood specimen / Unknown 12/26/2024 10:50 AM EDT 12/26/2024 12:31 PM EDT us Yosi Richmond MD LAB BLOOD ORDERABLES Final Result Performing Organization Address [facility] de Phone Number [facility] [address] [place] [address] * (ABNORMAL) Creatinine, plasma (12/26/2024 10:50 AM EDT) Creatinine, Plasma 1.45(H) 0.60 - 1.10 mg/dL 12/26/2024 12:49 PM EDT [facility] eGFRcr 40.4 mL/min/1.7 3m*2 12/26/2024 12:49 PM EDT [facility] Comment:Reported eGFRcr in m L/min/1.73m2 is based the CKD-EPI 2020 equation that does not use a race coefficient. Blood Venous blood specimen / Unknown 12/26/2024 10:50 AM EDT 12/26/2024 12:31 PM EDT us Yosi Richmond MD LAB BLOOD ORDERABLES Final Result Performing Organization Address [facility] de Phone Number [facility] [address] [place] [phone] * (ABNORMAL) C-reactive protein (12/26/2024 10:50 AM EDT) CRP, Plasma 10.0(H) <=8.0 mg/L 12/26/2024 12:49 PM EDT [facility] Blood Venous blood specimen / Unknown 12/26/2024 10:50 AM EDT 12/26/2024 12:31 PM EDT Narrative [facility] - 12/26/2024 12:49 PM EDT This CRP test is appropriate for assessment of infection, systemic inflammation and/or tissue injury. To assess cardiovascular disease risk order high sensitivity CRP (CRPH). 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 12/16/2024 12/22/2024 Assessment Noted Time PHQ-9 Depression Total Score: 0 09/01/19 25 3:26 PM EDT A fall risk assessment has been complete d for the patient 11/29/2024 1:14 PM EDT A Body Mass Index follow-up plan has been documented for the patient 12/23/2024 8:17 AM EDT documented as of this encounter Care Teams Stud Master/Mistress Relationship Specialty Start Date End Date Laurie Gutierrez MD [address] [place] [address] PCP - General 12/09/23 Joshua Martínez MD 800 [facility] [address] [place] [address] Consulting Physician Radiation Oncology 09/19/24 documented as of this encounter
--- OUTSIDE RECORDS SUMMARY | 2025-02-10 13:34 | XMS_ITS | Encounter Summary ---
Author Organization Healthcare Address [address] [place] [address] Care Team Providers Care Beam Worker Name Role Phone Laurie Gutierrez MD Primary Care Provider [phone] Joshua Martínez MD Unavailable Sabine Morales LPN Unavailable Unavailable Encounter Details Date Type Department Care Team (Late st Contact Info) Description 12/23/2024 Clinical Support [facility] [address] [place] [address] Daniella Sargent, PharmD [place], [place] [id number] Social History Tobacco Use Types Packs/Day Years [...] drink first t laurie in the morning (EYE-EXTRUDER OPERATOR) to steady your nerves or to get rid of a hangover? 0 12/02/2024 CAGE Questionnaire Score 0 025 Utilities Answer Date Recorded In the past 12 months has th e [employer], gas, oil, or water company threatened to [...] ([facility] st Contact Info) Description 02/21/2025 8:45 AM EDT Clinical Support [facility] 800 [facility], 2nd [place] [address] 02/21/2025 9:20 AM EDT Office Visit [facility] 800 [facility], [address] [place] [address] Satnam Colvin MD 800 [facility] Nuria Degroot [facility] [address] [place] [address] 02/21/2025 11:00 AM EDT Appointment [facility] 1 [address] [place] [address] 02/22/2025 2:30 PM EDT Appointment [facility] 1 [address] [place] [address] 02/23/2025 3:30 PM EDT Appointment [facility] 1 [address] [place] [address] 03/08/2025 1:00 PM EDT Office Visit [facility] [place] [facility]o [address] [place] [address] Teresita Oconnell MD [address] [place] [address] 03/10/2025 2:20 PM EDT Appointment [facility] [address]nd [place] [address] 03/10/2025 3:45 PM EDT Appointment [facility] [address], 1st [place] [address] 03/14/2025 11:00 AM EDT Office Visit [facility] [address] [facility], [address]nd [place] [address] Satnam Colvin MD [address] 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 12/16/2024 12/22/2024 Assessment Noted Time PHQ-9 Depression Total Score: 0 09/01/19 25 3:26 PM EDT A fall risk assessment has been complete d for the patient 11/29/2024 1:14 PM EDT A Body Mass Index follow-up plan has been documented for the patient 12/23/2024 8:17 AM EDT documented as of this encounter Care Teams Beam Worker Relationship Specialty Start Date End Date Laurie Gutierrez MD [address] [place] [address] PCP - General 12/09/23 Joshua Martínez MD [address] [facility] [address] [place] [address] Consulting Physician Radiation Oncology 09/19/24 Sabine Morales LPN TCM Nurse 11/23/24 12/23/24 documented as of this encounter
--- OUTSIDE RECORDS SUMMARY | 2025-02-10 13:35 | XMS_ITS | Encounter Summary ---
Author Organization [facility] Address [address] [place] [address] Care Team Providers Care Contract Project Manager Name Role Phone Laurie Gutierrez MD Primary Care Provider [phone] Joshua Martínez MD Unavailable Encounter Details Date Type Department Care Team (Late st Contact Info) Description 01/02/2025 Orders Only [facility] [address] [place] [address] Sheridan Vila RN [facility] Extensive [...] drink first t laurie in the morning (EYE-UTILITY LINEMAN) to steady your nerves or to get rid of a hangover? 0 12/02/2024 CAGE Questionnaire Score 0 025 Utilities Answer Date Recorded In the past 12 months has e [employer], gas, oil, or water [employer] threatened to shut off services in your [...] ([facility] st Contact Info) Description 02/21/2025 8:45 AM EDT Clinical Support [facility] 800 [facility], 2nd [place] [address] 02/21/2025 9:20 AM EDT Office Visit [facility] 800 [facility], [address]nd [place] [address] Satnam Colvin MD 800 [facility] [address] [place] [address] 02/21/2025 11:00 AM EDT Appointment [facility] 1 [address] [place] [address] 02/22/2025 2:30 PM EDT Appointment [facility] 1 [address] [place] [address] 02/23/2025 3:30 PM EDT Appointment [facility] 1 [address] [place] [address] 03/08/2025 1:00 PM EDT Office Visit [facility] [place] [facility] [address] [place] [address] Teresita Oconnell MD [address] [place] [address] 03/10/2025 2:20 PM EDT Appointment [facility] [address], [address]nd [place] [address] 03/10/2025 3:45 PM EDT Appointment [facility] 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 12/16/2024 12/22/2024 Assessment Noted Time PHQ-9 Depression Total Score: 0 09/01/19 25 3:26 PM EDT A fall risk assessment has been complete d for the patient 11/29/2024 1:14 PM EDT A Body Mass Index follow-up plan has been documented for the patient 12/23/2024 8:17 AM EDT documented as of this encounter Care Teams Contract Project Manager Relationship Specialty Start Date End Date Laurie Gutierrez MD [address] [place] [address] PCP - General 12/09/23 Joshua Martínez MD [address] [place] [address] Consulting Physician Radiation Oncology 09/19/24 documented as of this encounter
--- OUTSIDE RECORDS SUMMARY | 2025-02-10 13:35 | XMS_ITS | Encounter Summary ---
Author Organization [facility] Address [address] [place] [address] Care Team Providers Care Med Peds Name Role Phone Laurie Gutierrez MD Primary Care Provider [phone] Joshua Martínez MD Unavailable Sabine Morales LPN [...] drink first t laurie in the morning (EYE-LIFE INSURANCE UNDERWRITER) to steady your nerves or to get [...] Upcoming Encounters Date Type Department Care Team ([facility] st Contact Info) Description 02/21/2025 8:45 AM EDT Clinical Support [facility] 800 [facility], [address]nd [place] [address] 02/21/2025 9:20 AM EDT Office Visit [facility] 800 [facility], [address]nd [place] [address] Satnam Colvin MD 800 [facility] Nuria Degroot [facility] [address] [place] [address] 02/21/2025 11:00 AM EDT Appointment [facility] 1 [address] [place] [address] 02/22/2025 2:30 PM EDT Appointment [facility] 1 [address] [place] [address] 02/23/2025 3:30 PM EDT Appointment [facility] 1 [address] [place] [address] 03/08/2025 1:00 PM EDT Office Visit [facility] [place] [facility] 800 [facility]. [address] [place] [address] Teresita Oconnell MD [address] [place] [address] 03/10/2025 2:20 PM EDT Appointment [facility] [address], [address]nd [place] [address] 03/10/2025 3:45 PM EDT Appointment [facility] Radiology 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 aeruginosa MDR, LICENSING DIRECTOR 10/26/2024 10/31/2024 Assessment Noted Time PHQ-9 Depression Total Score: 0 09/01/19 25 3:26 PM EDT A fall risk assessment has been complete d for the patient 11/29/2024 1:14 PM EDT A Body Mass Index follow-up plan has been documented for the patient 12/22/2024 2:34 PM EDT documented as of this encounter Care Teams Med Peds Relationship Specialty Start Date End Date Laurie Gutierrez MD [address] [place] [address] PCP - General 12/09/23 Joshua Martínez MD [address] [place], [place] [id number] [place] [phone] Consulting Physician Radiation Oncology 09/19/24 Sabine Morales LPN TCM Nurse 11/23/24 12/23/24 documented as of this encounter
--- OUTSIDE RECORDS SUMMARY | 2025-02-10 13:35 | XMS_ITS | Encounter Summary ---
Author Organization Healthcare Address [address] [place] [address] Care Team Providers Care Environmental Protection Economist Name Role Phone Laurie Gutierrez MD Primary Care Provider [phone] Joshua Martínez MD Unavailable Encounter Details Date Type Department Care Team (Late st Contact Info) Description 01/02/2025 Lab Requisition [facility] S Laboratory Services [address], 1st [place] [address] Yosi Richmond MD [address] [place] [address] Infection following a procedure, other [...] time in the past 12 m [facility], were you homeless or living in [...] drink first t laurie in the morning (EYE-DELIVERY MANAGER) to steady your nerves or to get rid of a hangover? 0 12/02/2024 CAGE Questionnaire Score 0 025 Utilities Answer Date Recorded In the past 12 months has th e [employer], gas, oil, or water company threatened to [...] Never 01/03/2025 9:24 AM EDT Kasandra Riley * Over the past 2 weeks, how often have you been bothered by any of the following problems? Question Answer Date of Assessment Author Little interest or pleasure in doing things Not at all 01/05/2025 1:02 PM JULIAT Teresa Luevano Feeling down, depressed, or hopeless Not at all 01/05/2025 1:02 PM JULIAT Teresa Luevano Patient Health Questionnaire -2 Score 0 01/05/2025 1:02 PM EDT Teresa Luevano * Calculated C-SSRS Risk Score (Lifetime/Recent) Answer Date of Assessment Author No Risk Indicated 01/04/2025 8:53 PM EDT Agustina Simon * Question Answer Date of Assessment Author 1. Wish to be (Past 1 Month) No 025 8:53 PM EDT Agustina Simon 2. Non-Specific Active Suici radha Thoughts (Past 1 Month) No 01/04/2025 8:53 PM EDT Agustina Simon 6. Suicidal Behavior (Lifetime) No 8:53 PM EDT Agustina Simon documented as of this encounter Plan of Treatment Upcoming Encounters Date Type Department Care Team ([facility] st Contact Info) Description 02/21/2025 8:45 AM EDT Clinical Support Pav [facility] Head, Neck & Respiratory [address] [facility], 2nd [place] [phone] 02/21/2025 9:20 AM EDT Office Visit Pav [facility] Head, Neck & Respiratory [address] [facility], 2nd [place] [address] Satnam Colvin MD 800 [facility] [address] [place] [address] 02/21/2025 11:00 AM EDT Appointment [facility] Infusion [facility] 1 [address] [place] [phone] 02/22/2025 2:30 PM EDT Appointment [facility] 1 [address] [place] [address] 02/23/2025 3:30 PM EDT Appointment [facility] 1 [address] [place] [phone] 03/08/2025 1:00 PM EDT Office Visit [facility] [place] [facility] [address] [facility]. [address] [place] [address] Teresita Oconnell MD [address] [place] [address] 03/10/2025 2:20 PM EDT Appointment [facility] [address], 2nd [place] [address] 03/10/2025 3:45 PM EDT Appointment [facility] S Radiology [address], 1st [place] [address] 03/14/2025 11:00 AM EDT Office Visit [facility] Head[facility] Neck & Respiratory [address], 2nd [place] [address] Satnam Colvin MD [address] [place] [address] documented as of this encounter [...] LAB HEMATOLOGY METHOD 01/02/2025 3:41 PM EDT [facility] RBC Count 3.01(L) 3.90 - 5.20 10*6/uL LAB HEMATOLOGY METHOD 01/02/2025 3:41 PM EDT [facility] HGB 9.2(L) 11.2 - 15.7 g/dL LAB HEMATOLOGY METHOD 01/02/2025 3:41 PM EDT [facility] HCT 29.9(L) 34.0 - 45.0 % LAB HEMATOLOGY METHOD 01/02/2025 3:41 PM EDT [facility] Platelet Count 161 155 - 369 10*3/uL LAB HEMATOLOGY METHOD 01/02/2025 3:41 PM EDT [facility] MCV 99(H) 79 - 98 fL LAB HEMATOLOGY METHOD 01/02/2025 3:41 PM EDT [facility] MCH 30.6 26.0 - 32.0 pg LAB HEMATOLOGY METHOD 01/02/2025 3:41 PM EDT [facility] MCHC 30.8 30.7 - 35.5 g/dL LAB HEMATOLOGY METHOD 01/02/2025 3:41 PM EDT [facility] RDW 20.6(H) 11.5 - 14.5 % LAB HEMATOLOGY METHOD 01/02/2025 3:41 PM EDT [facility] MPV 10.5 8.8 - 12.5 fL LAB HEMATOLOGY METHOD 01/02/2025 3:41 PM EDT [facility] nRBC 0.0 <=0.0 per 100 WBCs LAB HEMATOLOGY METHOD 01/02/2025 3:41 PM EDT [facility] Differential Type Automated LAB HEMATOLOGY METHOD 01/02/2025 3:41 PM EDT [facility] Neutrophils % 71 % LAB HEMATOLOGY METHOD 01/02/2025 3:41 PM EDT [facility] Lymphocytes % 16 % LAB HEMATOLOGY METHOD 01/02/2025 3:41 PM EDT [facility] Monocytes % 8 % LAB HEMATOLOGY METHOD 01/02/2025 3:41 PM EDT [facility] Eosinophils % 3 % LAB HEMATOLOGY METHOD 01/02/2025 3:41 PM EDT [facility] Basophils % 1 % LAB HEMATOLOGY METHOD 01/02/2025 3:41 PM EDT [facility] Immature Granulocytes % 1 % LAB HEMATOLOGY METHOD 01/02/2025 3:41 PM EDT [facility] Neutrophils Absolute 5.81 1.60 - 6.10 10*3/uL LAB HEMATOLOGY METHOD 01/02/2025 3:41 PM EDT [facility] Lymphocytes Absolute 1.34 1.20 - 3.90 10*3/uL LAB HEMATOLOGY METHOD 01/02/2025 3:41 PM EDT [facility] Monocytes Absolute 0.65 0.30 - 0.90 10*3/uL LAB HEMATOLOGY METHOD 01/02/2025 3:41 PM EDT [facility] Eosinophils Absolute 0.28 0.00 - 0.50 10*3/uL LAB HEMATOLOGY METHOD 01/02/2025 3:41 PM EDT [facility] Basophils Absolute 0.10 0.00 - 0.10 10*3/uL LAB HEMATOLOGY METHOD 01/02/2025 3:41 PM EDT [facility] Immature Granulocytes Absolute 0.04 0.00 - 0.06 10*3/uL LAB HEMATOLOGY METHOD 01/02/2025 3:41 PM EDT [facility] Blood Venous blood specimen / Unknown 01/02/2025 10:40 AM EDT 01/02/2025 3:21 PM EDT Narrative [facility] - 01/02/2025 3:41 PM EDT Therapeutic decision making should be based on absolute values, rather than percentages. us Yosi Richmond MD LAB BLOOD ORDERABLES Final Result Performing Organization Address City/[facility]/ZIP Co de Phone Number [facility] [address] [place] [address] * Urea Nitrogen, Plasma (01/02/2025 10:40 AM EDT) BUN, Plasma 17 8 - 23 mg/dL 01/02/2025 3:54 PM EDT [facility] Blood Venous blood specimen / Unknown 01/02/2025 10:40 AM EDT 01/02/2025 3:21 PM EDT us Yosi Richmond MD LAB BLOOD ORDERABLES Final Result [facility] [address] [place] [address] * (ABNORMAL) Creatinine, plasma (01/02/2025 10:40 AM EDT) Creatinine, Plasma 1.23(H) 0.60 - 1.10 mg/dL 01/02/2025 3:54 PM EDT [facility] eGFRcr 49.2 mL/min/1.7 3m*2 01/02/2025 3:54 PM EDT [facility] Comment:Reported eGFRcr in m L/min/1.73m2 is based the CKD-EPI 2020 equation that does not use a race coefficient. Blood Venous blood specimen / Unknown 01/02/2025 10:40 AM EDT 01/02/2025 3:21 PM EDT Yosi Richmond MD LAB BLOOD ORDERABLES Final Result Performing Organization Address City/[facility]/ZIP Co de Phone Number [facility] [address] [place] [address] * C-reactive protein (01/02/2025 10:40 AM EDT) [...] Richmond MD LAB BLOOD ORDERABLES Final Result [facility] [address] [place] [address] documented in this encounter Visit Diagnoses Diagnosis Infection following a procedure, other surgical site, initial encounter 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 acute cor pulmonale (CMS/HCC) Dyspnea, unspecified 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 12/16/2024 12/22/2024 Assessment Noted Time PHQ-9 Depression Total Score: 0 09/01/19 3:26 PM EDT A fall risk assessment has been complete d for the patient 11/29/2024 1:14 PM EDT A Body Mass Index follow-up plan has been documented for the patient 12/23/2024 8:17 AM EDT documented as of this encounter Care Teams Environmental Protection Economist Relationship Specialty Start Date End Date Laurie Gutierrez MD [address] [place] [address] PCP - General 12/09/23 Joshua Martínez MD [address] [place] [phone] Consulting Physician Radiation Oncology 09/19/24 documented as of this encounter
--- OUTSIDE RECORDS SUMMARY | 2025-02-10 13:36 | XMS_ITS | Encounter Summary ---
Author Organization [facility] Address [address] [place] [address] Care Team Providers Care Specialty Therapist Name Role Phone Laurie Gutierrez MD Primary Care Provider Joshua Martínez MD Unavailable Sabine Morales LPN Unavailable Unavailable Encounter Details Date Type Department Care Team (Late st Contact Info) Description 12/15/[facility] [address], 1st [place] [address] Abhilash Bangura MD [address] [place] [address] Social History Tobacco Use Types [...] living in a long-term (including now)? No 12/16/2024 CAGE ASSESSMENT Answer [...] drink first t laurie in the morning (EYE-TYPE CASTING MACHINE OPERATOR) to steady your nerves or to get rid of a hangover? 0 12/02/2024 CAGE Questionnaire Score 0 025 Utilities Answer Date Recorded In the past 12 months has th e [employer], gas, oil, or water company threatened [...] drink containing alcohol? Never 01/03/2025 9:24 AM JULIAT Kasandra Riley Q2: How many [...] Month) No 01/04/2025 8:53 PM EDT Agustina Simno 6. Suicidal Behavior (Lifetime) No 8:53 PM EDT Agustina Simon documented as of this encounter Miscellaneous Notes * Telephone Encounter - Daya Milan - 12/28/2024 8:14 AM EDT Patient Phone Message Reason for Call: Patient sister calling about when stitches need to be removed procedure was 12/16 please advise Best contact number and optimal time of day to reach caller: Era [phone] Note: Please do not reply to this message. Follow-up communication and further actions as a result of this message need to be communicated with the patient directly, if the patient is not active onMyChart. If the patient is active on MyChart, they will receive notification of the communication/outcome via Sonos. * Telephone Encounter - Divya Hodgson - [...] time of day to reach caller: Era [phone] Note: Please do not reply to this [...] Respiratory [address] [facility], 2nd [place] [address] 02/21/2025 9:20 AM EDT Office Visit Pav CC Head, Neck & Respiratory [address] [facility], 2nd [place] [address] Satnam Colvin MD 800 [facility] [address] [place] [address] 02/21/2025 11:00 AM EDT Appointment [facility] 1 [address] [place] [phone] 02/22/2025 2:30 PM EDT Appointment [facility] 1 [address] [place] [address] 02/23/2025 3:30 PM EDT Appointment [facility] 1 [address] [place] [address] 03/08/2025 1:00 PM EDT Office Visit [facility] [place] [address] [facility] [place] [address] Teresita Oconnell MD [address] [place] [address] 03/10/2025 2:20 PM EDT Appointment [facility] [address], [address]nd [place] [address] 03/10/2025 3:45 PM EDT Appointment [facility] Radiology 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 12/16/2024 12/22/2024 Assessment Noted Time PHQ-9 Depression Total Score: 0 09/01/19 25 3:26 PM EDT A fall risk assessment has been complete d for the patient 11/29/2024 1:14 PM EDT A Body Mass Index follow-up plan has been documented for the patient 12/22/2024 2:34 PM EDT documented as of this encounter Care Teams Specialty Therapist Relationship Specialty Start Date End Date Laurie Gutierrez MD [address] [place], [place] [phone] PCP - General 12/09/23 Joshua Martínez MD 800 [facility] [address] [place] [address] Consulting Physician Radiation Oncology 09/19/24 Sabine Morales LPN TCM Nurse 11/23/24 12/23/24 documented as of this encounter
--- OUTSIDE RECORDS SUMMARY | 2025-02-10 13:36 | XMS_ITS | Encounter Summary ---
Author Organization [facility] Address [address] 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 0 12/02/2024 CAGE Questionnaire Score 0 025 Utilities Answer Date Recorded In the past 12 months has th e [employer], gas, oil, or water [employer] threatened to shut off services in your [...] Progress Notes - Sabine Morales LPN - 12/12/2024 12:16 PM EDT Admit Date: 11/29/2024 Discharge Date: 12/10/2024 Hospital Service: [facility] Discharge Diagnosis: Seizure 12/12/2024 TCM call [...] & Respiratory 800 [facility], [address]nd [place] [address] 02/21/2025 9:20 AM EDT Office Visit Pav CC Head, Neck & Respiratory 800 [facility], [address] [place] [phone] Satnam Colvin MD [address] [facility] [address] [place] [phone] 02/21/2025 11:00 AM EDT Appointment [facility] Infusion Clinic 1 [address] [place] [phone] 02/22/2025 2:30 PM EDT Appointment [facility] 1 [address] [place] [address] 02/23/2025 3:30 PM EDT Appointment [facility] Infusion Clinic 1 [address] [place] [address] 03/08/2025 1:00 PM EDT Office Visit [facility] [place] [address] [facility]. [address] [place] [address] Teresita Oconnell MD [address] [place] [phone] 03/10/2025 2:20 PM EDT Appointment [facility] [address], [address] [place] [address] 03/10/2025 3:45 PM EDT Appointment [facility] S Radiology 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 12/16/2024 12/22/2024 Assessment Noted Time PHQ-9 Depression Total Score: 0 09/01/19 25 3:26 PM EDT A fall risk assessment has been complete d for the patient 11/29/2024 1:14 PM EDT A Body Mass Index follow-up plan has been documented for the patient 12/10/2024 5:08 PM EDT documented as of this encounter Care Teams Dock Manager Relationship Specialty Start Date End Date Laurie Gutierrez MD [address] [place] [address] PCP - General 12/09/23 Joshua Martínez MD [address] [place] [phone] Consulting Physician Radiation Oncology 09/19/24 Sabine Morales LPN TCM Nurse 11/23/24 12/23/24 documented as of this encounter
--- OUTSIDE RECORDS SUMMARY | 2025-02-10 13:36 | XMS_ITS ---
Author Organization [facility] Address [address] [place] [address] Care Team Providers Care Sinter Machine Operator Name Role Phone Laurie Gutierrez MD Primary Care Provider [phone] Joshua Martínez MD Unavailable Transitional Care Management Status:Closed (Closed) Start date:12/12/2024 Enrollment date:12/12/2024 Enrollment reason:Identified using hospital discharge data End date:12/23/2024 Close reason:Patient Readmitted Overview This episode type is for outpatient care managers enrolling patients in the [facility] Transitional Care Management program. Continued Care and Services Coordination
--- OUTSIDE RECORDS SUMMARY | 2025-02-10 13:36 | XMS_ITS | Encounter Summary ---
Author Organization [facility] Address [address] [place] [address] Care Team Providers Care Seam Sewer Name Role Phone Laurie Gutierrez MD Primary Care Provider [phone] Joshua Martínez MD Unavailable Sabine Morales LPN [...] drink first t laurie in the morning (EYE-BARREL LINE OPERATOR) to steady your nerves or to [...] [facility], 2nd [place] [address] 02/21/2025 9:20 AM EDT Office Visit Pav CC Head, Neck & Respiratory 800 [facility], 2nd [place] [address] Satnam Colvin MD 800 [facility] 134 [place] [address] 02/21/2025 11:00 AM EDT Appointment [facility] 1 [address] [place] [address] 02/22/2025 2:30 PM EDT Appointment [facility] 1 [address] [place] [address] 02/23/2025 3:30 PM EDT Appointment [facility] 1 [address] [place] [address] 03/08/2025 1:00 PM EDT Office Visit [facility] [place] [address] [place] [address] Teresita Oconnell MD [address] [place] [address] 03/10/2025 2:20 PM EDT Appointment [facility] [address], [address]nd [place] [address] 03/10/2025 3:45 PM EDT Appointment [facility] Radiology 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
--- OUTSIDE RECORDS SUMMARY | 2025-02-10 13:36 | XMS_ITS | Encounter Summary ---
Author Organization [facility] Address [address] [place] [address] Care Team Providers Care International Marketing Intern Name Role Phone Laurie Gutierrez MD Primary Care Provider [phone] Joshua Martínez MD Unavailable Sabine Morales LPN [...] living in a penitentiary (including now)? No 12/16/2024 CAGE ASSESSMENT Answer [...] drink first t laurie in the morning (EYE-SEEING EYE DOG TRAINER) to steady your nerves or to get [...] Month) No 12/15/2024 9:03 PM EDT Ben Hughes, RN 2. Non-Specific Active Suici radha Thoughts (Past 1 Month) No 12/15/2024 9:03 PM EDT Nina Hughes RN 6. Suicidal Behavior (Lifetime) No 9:03 PM EDT Ben Hughes, RN documented as of this encounter Plan of Treatment Upcoming Encounters Date Type Department Care Team (Late st Contact Info) Description 02/21/2025 8:45 AM EDT Clinical Support Pav CC Head, Neck & Respiratory 800 [facility], 2nd [place] [address] 02/21/2025 9:20 AM EDT Office Visit Pav CC Head, Neck & Respiratory [address] [facility], 2nd [place] [address] Satnam Colvin MD 800 [facility] [address] [place] [address] 02/21/2025 11:00 AM EDT Appointment [facility] 1 [address] [place] [address] 02/22/2025 2:30 PM EDT Appointment [facility] 1 [address] [place] [address] 02/23/2025 3:30 PM EDT Appointment [facility] 1 [address] [place] [address] 03/08/2025 1:00 PM EDT Office Visit [facility] [place] 800 [facility]. [address] [place] [phone] Teresita Oconnell MD [address] [place] [address] 03/10/2025 2:20 PM EDT Appointment [facility] [address], [address]nd [place] [address] 03/10/2025 3:45 PM EDT Appointment [facility] Radiology 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
--- OUTSIDE RECORDS SUMMARY | 2025-02-10 13:37 | XMS_ITS | Encounter Summary ---
Author Organization [facility] Address [address] [place] [address] Care Team Providers Care Dining Manager Name Role Phone Paola Hyde APRN Primary Care Provider [phone] Laurie Gutierrez MD Primary Care Provider [phone] Joshua Martínez MD Unavailable Jasmina Smith BLOCK LAYER Unavailable Unavailable Paradise Pacheco RN Unavailable Unavailab Sabine Crowe BLOCK LAYER Unavailable Unavailable Encounter Details Date Type Department Care Team (Late Contact Info) Description 07/31/2023 Orders Only External Location [address] [place] [address] Provider, External Social History Tobacco [...] Department Care Team (Late Contact Info) Description 02/21/2025 8:45 AM EDT Clinical Support [facility] 800 [facility], 2nd [place] [address] 02/21/2025 9:20 AM EDT Office Visit [facility] [address], [address] [place] [address] Satnam Colvin MD 800 [facility] Nuria Degroot [facility] [address] [place] [address] 02/21/2025 11:00 AM EDT Appointment [facility] 1 [address] [place] [address] 02/22/2025 2:30 PM EDT Appointment [facility] 1 [address] [place] [address] 02/23/2025 3:30 PM EDT Appointment [facility] 1 [address] [place] [address] 03/08/2025 1:00 PM EDT Office Visit [facility] [place] [address] [facility]. [address] [place] [address] Teresita Oconnell MD [address] [place] [address] 03/10/2025 2:20 PM EDT Appointment [facility] [place] [address], [address] [place] [address] 03/10/2025 3:45 PM EDT Appointment [facility] S Radiology 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 12/16/2024 12/22/2024 documented as of this encounter Care Teams Dining Manager Relationship Specialty Start Date End Date Paola Hyde APRN [address] [place] [address] PCP - General 09/28/20 12/08/23 Laurie Gutierrez MD [address] [place] [address] PCP - General 12/09/23 Joshua Martínez MD [address] [address] Consulting Physician Radiation Oncology 09/19/24 Jasmina Smith LPN VALUE-[place] [address] TCM Nurse 10/19/24 11/01/24 Paradise Pacheco, RN [facility]-VASCULAR [facility] INTERVENTIONAL RADIOLOGY Registered Nurse 11/21/24 11/21/24 Sabine Morales LPN TCM Nurse 11/23/24 12/23/24 documented as of this encounter
--- OUTSIDE RECORDS SUMMARY | 2025-02-10 13:37 | XMS_ITS | Data Portability ---
Author Organization [facility] [facility] Address [address] [place] [address] Assessment No assessment recorded. Plan of Treatment Reminders Order Date Submit Date Provider Last Modified By Organization Details Last Modified Time Details Appointments None record ed. Lab pap, LB 024 05/19/19 HARI [facility], [address], [place], [address], 23:41:14 Referral None record ed. Procedures None [...] perfo rming site locat ion. Not Available [facility] [place] [facility] [email or web address], [place], [address], 05/20/2023 23:41:14 05/19/19 24 05/20/2023 IMAGE -GUID ED PAP W/AGE BASED SCR FADI COLS clinical information: normal None given Not Available [facility] [place] [facility] [address], [place], [address], 05/20/2023 23:41:14 05/19/19 24 05/20/2023 IMAGE -GUID ED PAP W/AGE BASED SCR FADI COLS LMP: normal NONE GIVEN Not Available [employer] [facility] [place] [facility] [address] [place], [address], 05/20/2023 23:41:14 05/19/19 24 05/20/2023 IMAGE -GUID ED PAP W/AGE BASED SCR FADI COLS prev. Pap: normal NONE GIVEN Not Available [facility] [address] [place], [address], 05/20/2023 23:41:14 05/19/19 24 05/20/2023 IMAGE -GUID ED PAP W/AGE BASED SCR FADI COLS prev. BX: normal NONE GIVEN Not Available [facility] [address] [place], [address], 05/20/2023 23:41:14 05/19/19 24 05/20/2023 IMAGE -GUID ED PAP W/AGE BASED SCR FADI COLS source: normal Vagin a, Cervi x, Endoc ervix Not Available [facility] [address] [place], [address], 05/20/2023 23:41:14 05/19/19 24 05/20/2023 IMAGE -GUID ED PAP W/AGE BASED SCR FADI COLS statement of adequacy: normal Satis facto ry for evalu ation . Endoc ervic al/tr ansfo rmati on zone compo nent prese nt. Not Available [facility] [address] [place], [address], 05/20/2023 23:41:14 05/19/19 24 05/20/2023 IMAGE -GUID ED PAP W/AGE BASED SCR FADI COLS interpretati on/result: normal Cytol ogy Resul ts: Negat elissa for intra epith elial lesio n or malig aleena . Not Available [facility] [place] [facility] [address] [place], [address], 05/20/2023 23:41:14 05/19/19 24 05/20/2023 IMAGE -GUID ED PAP W/AGE BASED SCR FADI COLS comment: normal This Pap test has been evalu ated with compu ter elizabeth samaria techn ology . Not Available [facility] [place] [facility] [address] [place], [address], 05/20/2023 23:41:14 05/19/19 24 05/20/2023 IMAGE -GUID ED PAP W/AGE BASED SCR FADI COLS cytotechnolo gist: normal MTE, CT( CP) CT Scree amelie Locat ion: [facility] [place] [address] [place] [address] Not Available [facility] [place] [facility] [address] [place], [address], 05/20/2023 23:41:14 05/19/19 24 05/20/2023 IMAGE -GUID [...] matio n. Not Available [facility] [place] [facility] [address] [place], [address], 05/20/2023 23:41:14 05/19/19 24 05/20/2023 IMAGE -GUID [...] infor gill murray e refer to http: //[facility] joseph levy.edmond stdia gnost ics.c om/fa q/FAQ 129v1 (This link if provi ded for infor jjaa levy/ educa syed albarado purpo ses only. ) Not Available [facility] [place] [facility] [address] [facility], [place], [address], 05/20/2023 23:41:14 Result Notes None recorded. Problems Name Problem SNOMED Code Status Onset Date Resolution Date Notes Provider Name and Address Organization Details Recorded Time Malignant neoplasm of lung 609681696 Active 024 Bud Shaffer, [address], [address], [employer] 4 13:19:41 Problem Notes None recorded. Procedures Surgical History Date Name Laterality Status Provider Name and Address Organization Details Recorded Time 4 Date of Last Pap Smear completed [facility] [employer] 05/22/2023 08:29:39 Tubal Ligation completed [facility] [employer]. 05/19/2023 10:41:55 Imaging Results None recorded. Procedure Notes None recorded. Medical Equipment None Reported. Allergies Allergen ID Allergen Name Allergen Category Reaction Reaction Severity Criticality Documentation Date Start Date Code Code System Note Provider Name and Address Organization Details Recorded Time 14837 Keflex medicatio n Not available Not available Not available 10/16/202341423 7 RxNorm ELMER barksdale [employer] 12:54:16 37605 lisinopri l medicatio n Not available Not available Not available 10/16/2023 07857 RxNorm ELMER RICO [employer] 12:54:23 89015 meloxicam medicatio n Not available Not available Not available 10/16/2023 84675 RxNorm ELMER barksdale [employer] 12:54:50 Medications Name Sig Start Date [...] Last Updated DateTime 167.64 cm 32.5 kg/m2 83863.5 g 77 /min 99 % 99 % 114/74 mm[Hg] JERMAN WELLS [employer] 10:46:23 Date Recorded Body height Body mass index (BMI) Body weight Systolic And Diastolic Provider Name and Address Organization Details Last Updated DateTime 10/16/2023 167.64 cm 35.2 kg/m2 77782.42 g 106/68 mm[Hg] ELMER RICO [employer] 10/16/2023 12:58:44 Social History Question Answer Notes LastModified by Organizat ion Details LastModified Time Tobacco Smoking Status Current Some Day Smoker ELMER [employer] 10/16/2023 12:55:50 Do You Have An Advance Directive? No [email or web address] Information not available 05/19/2023 Is Your Home Air Conditioned? Yes Information not available 05/19/2023 Are You Blind Or Do You Have Difficulty Seeing? No [email or web address] Information not available 05/19/2023 What Is Your Level Of Caffeine Consumption? Moderate [email or web address] Information not available 05/19/2023 What Type Of Paper Products Supervisor Do You Use? Relative [email or web address] Information not available 05/19/2023 Are You Deaf Or Do You Have Serious Difficulty Hearing? No [email or web address] Information not available 05/19/2023 What Type Of Diet Are You Following? REGULAR [email or web address] Information not available 05/19/2023 Have There Been Any Changes To Your Family Or Social Situation? No [email or web address] Information no t available 05/19/2023 Are There Any Guns Present In Your Home? No [email or web address] Information not available 05/19/2023 Which Of Your Hands Is Dominant? Right [email or web address] Information not available 05/19/2023 What Is Your Home Situation? Other [email or web address] Information not available 05/19/2023 Do You Have A Medical Power Of Ic Designer Standard Cells? No [email or web address] Information not available 05/19/2023 What Was The Date Of Your Most Recent Tobacco Screening? 10/16/2023 Information not available 10/16/2023 What Is Your Current Pack Years? 30ormorepacky ears [email or web address] Information not available 05/19/2023 Do You Have Any Pets? No Information not available 05/19/2023 What Is Your Relationship Status? [email or web address] Information not available 05/19/2023 Have You Repeated Any Grades? No [email or web address] Information not available 05/19/2023 Do You Use Your Seat Belt Or Car Seat Routinely? Yes [email or web address] Information not available 05/19/2023 Are You Sexually Active? Yes Information not available 05/19/2023 Do You Have Any Siblings? Yes Information not available 05/19/2023 Do You Have Smoke And Carbon Monoxide Detectors In Your Home? Yes Information not available 05/19/2023 At What Age Did You Start Smoking Tobacco? 15 [email or web address] Information not available 05/19/2023 Are You Passively Exposed To Smoke? No [email or web address] Information no t available 05/19/2023 Are There Any Smokers In Your House? Yes [email or web address] Information not available 05/19/2023 How Much Tobacco Do You Smoke? 2 PPW Information not available 10/16/2023 Do You Use Sunscreen Routinely? No [email or web address] Information not available 05/19/2023 How Many Years Have You Smoked Tobacco? 47 [email or web address] Information not available 05/19/2023 Do You Have Difficulty Walking Or Climbing Stairs? No [email or web address] Information not available 05/19/2023 Sex: Female Functional Status Question Answer Note LastModified by Organizat ion Details LastModified Time Do you use any illicit or recreational drugs? No [email or web address] Information not available 05/19/2023 Do you or have you ever used any other forms of tobacco or nicotine? No Information not available 10/16/2023 Are you currently employed? No [email or web address] Information not available 05/19/2023 Are you able to walk independently without assistance or assistive devices? YESWOREST [email or web address] Information not available 05/19/2023 Do you have difficulty doing errands alone? No [email or web address] Information not available 05/19/2023 Are you able to care for yourself independently? Yes [email or web address] Information not available 05/19/2023 Do you have difficulty dressing, bathing, grooming, or toileting? No [email or web address] Information not available 05/19/2023 Mental Status Question Answer Note LastModified by Organization D etails LastModified Time Do you have difficulty concentrating, remembering or making decisions? [place] [address] Information no t available 05/19/2023 Family History Nothing Reported. Medical History Condition Response Anxiety Disorder Y Diabetes Y Cancer Y Asthma Y Hypertension Y Gynecological History [...] Influenza, split virus, quadrivalent, preservative 7 completed [employer]. 10/16/2023 12:53:53 Influenza, split virus, quadrivalent, preservative 1 completed [employer]. 10/16/2023 12:53:53 Influenza, split virus, quadrivalent, preservative 4 completed [employer]. 10/16/2023 12:53:53 zoster recombinant 9 completed [employer], [employer]. 10/16/2023 12:53:53 Influenza, high-dose, quadrivalent, PF 0 completed [employer], [employer]. 10/16/2023 12:53:53 COVID-19, mRNA, LNP-S, PF, 100 mcg/0.5mL dose or 50 mcg/0.25mL dose 1 completed ELMER JACKY null, [employer] 10/16/2023 12:53:53 COVID-19, mRNA, LNP-S, PF, 100 mcg/0.5mL dose or 50 mcg/0.25mL dose 1 completed ELMER JACKY null, [employer] 10/16/2023 12:53:53 COVID-19, mRNA, LNP-S, PF, 100 mcg/0.5mL dose or 50 mcg/0.25mL dose 2 completed ELMER JACKY null, [employer] 10/16/2023 12:53:53 COVID-19, mRNA, LNP-S, PF, 100 mcg/0.5mL dose or 50 mcg/0.25mL dose 1 completed ELMER JACKY null, [employer] 10/16/2023 12:53:53 COVID-19, mRNA, LNP-S, bivalent, PF, 50 mcg/0.5 mL or 25mcg/0.25 mL dose 3 completed ELMER JACKY null, [employer] 10/16/2023 12:53:53 pneumococcal polysaccharide PPV23 9 completed ELMER JACKY null, [employer] 10/16/2023 12:53:53 Tdap 8 completed ELMER JACKY null, [employer] 10/16/2023 12:53:53 Influenza, split virus, trivalent, preservative 4 completed ELMER JACKY null, [employer] 10/16/2023 12:53:53 Influenza, split virus, trivalent, PF 4 completed ELMER JACKY null, [employer] 10/16/2023 12:53:53 Hep A, adult 9 completed ELMER JACKY null, [employer] 10/16/2023 12:53:53 Hep A, adult 8 completed ELMER JACKY null, [employer] 10/16/2023 12:53:53 Influenza, split virus, quadrivalent, PF 8 completed ELMER RICO null, [employer] 10/16/2023 12:53:53 Influenza, split virus, quadrivalent, PF 9 completed ELMER RICO null, [employer] 10/16/2023 12:53:53 Past Encounters Encounter ID Performer Location Encounter Start Date Encounter Closed Date Diagnosis/Indication Diagnosis SNOMED-CT Code Diagnosis ICD10 Code Diagnosis IMO Codes Diagnosis Note [id number] [place] 1947853-[address] 7 05/19/2023 09:48:38 05/19/2023 12:57:51 Gynecologic examination 73709798 Z01.964 [id number] Bud Shaffer [address] [place] [phone] 10/16/2023 12:32:37 10/16/2023 13:30:46 Urethral caruncle 9673478 N36.2 continue neosporin. Pt has appt with [...] Hutson Member ID Guarantor Name 10/16/2023 1 [place] [id number] Teresa Rivera [id number] Teresa Rivera Notes Date Note Type Note Provider Name and Address Organization Details Recorded Time 05/19/2023 text/html Abnormal BleedingReported by PatientROS as noted in the HPI Pt originally scheduled with c/o vaginal bleeding. [...] on her mammogram and colorectal screening. Bud Shaffer CNM [address] [place], [address], [employer], [employer]. 05/19/2023 12:44:19 10/16/2023 text/html Vaginal/Vulvar ProblemReported by PatientROS as noted in the HPI Patient here today with complaints of having [...] of radiation for her lung cancer Bud Shaffer CNM [address] [place], [address], [employer], [employer]. 10/16/2023 13:23:25 OBGyn Episode No OBEpisode recorded.
--- OUTSIDE RECORDS SUMMARY | 2025-02-10 13:38 | XMS_ITS | Encounter Summary ---
Author Organization [facility] Address [address] [place] [address] Care Team Providers Care Funding Analyst Name Role Phone Laurie Gutierrez MD Primary Care Provider [phone] Joshua Martínez MD Unavailable Encounter Details Date Type Department Care Team (Latest Contact Info) Description 01/10/2025 Travel Social History Tobacco Use Types Packs/Day [...] drink first t laurie in the morning (EYE-NIB FINISHER) to steady your nerves or to [...] ([facility] st Contact Info) Description 02/21/2025 8:45 AM EDT Clinical Support [facility] [address] [facility], 2nd [place] [address] 02/21/2025 9:20 AM EDT Office Visit Pav [facility] Res[facility] [address] [facility], [address]nd [place] [address] Satnam Colvin MD [address] [facility] [address] [place] [address] 02/21/2025 11:00 AM EDT Appointment [facility] 1 [address] [place] [address] 02/22/2025 2:30 PM EDT Appointment [facility] 1 [address] [place] [address] 02/23/2025 3:30 PM EDT Appointment [facility] 1 [address] [place] [address] 03/08/2025 1:00 PM EDT Office Visit [facility] [place] [address] [facility] [place] [address] Teresita Oconnell MD [address] [place] [address] 03/10/2025 2:20 PM EDT Appointment [facility] CT [address]nd [place] [address] 03/10/2025 3:45 PM EDT Appointment [facility] S Radiology 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 12/16/2024 12/22/2024 Assessment Noted Time PHQ-9 Depression Total Score: 0 09/01/19 3:26 PM EDT A fall risk assessment has been complete d for the patient 01/10/2025 9:02 AM EDT A Body Mass Index follow-up plan has been documented for the patient 01/05/2025 1:37 PM EDT documented as of this encounter Care Teams Funding Analyst Relationship Specialty Start Date End Date Laurie Gutierrez MD [address] [place], [place] [phone] PCP - General 12/09/23 Joshua Martínez MD [address] [place] [address] Consulting Physician Radiation Oncology 09/19/24 documented as of this encounter
--- OUTSIDE RECORDS SUMMARY | 2025-02-10 13:38 | XMS_ITS | Encounter Summary ---
Author Organization [facility] Address [address] [place] [address] Care Team Providers Care Residential Youth Counselor Name Role Phone Laurie Gutierrez MD Primary Care Provider [phone] Joshua Martínez MD Unavailable Encounter Details Date Type Department Care Team (Late st Contact Info) Description 01/30/2025 Orders Only [facility] [address] [place] [address] Satnam Colvin MD 800 [facility] [address] [place] [address] Social History Tobacco Use Types Packs/Day Years [...] max number of drinks Not on file 07/18/ 2025 Cage Beverages a week Not on file 12/02/2024 Have you ever felt you should CUT down on your d rinking? 0 12/02/2024 Have you been ANNOYED by people criticizing your drinking? 0 12/02/2024 Have you felt GUILTY about your drinking? 0 12/02/2024 Have you had a drink first t laurie in the morning (EYE-APPLIANCE SERVICE REPRESENTATIVE) to steady your nerves or to get rid of a hangover? 0 12/02/2024 CAGE Questionnaire Score 0 025 Utilities Answer Date Recorded In the past 12 months has th e [employer], gas, oil, or water [employer] threatened to shut off services in your [...] Indicated 01/31/2025 9:48 AM EDT Bracarlos ingram [place] R * Question Answer Date of Assessment Author 1. Wish to be (Past 1 Month) No 025 9:48 AM EDT Jerri, [place] R 2. Non-Specific Active Suici radha Thoughts (Past 1 Month) No 01/31/2025 9:48 AM EDT Jerri, Va enix R 6. Suicidal Behavior (Lifetime) No 9:48 AM EDT Jerri, [place] R documented as of this encounter Plan of Treatment Upcoming Encounters Date Type Department Care Team (Late st Contact Info) Description 02/21/2025 8:45 AM EDT Clinical Support [facility] Res[facility] [address] [facility], [address] [place] [address] 02/21/2025 9:20 AM EDT Office Visit Pav [facility]ck [facility] Respiratory [address] [facility], [address]nd [place] [address] Satnam Colvin MD [address] [facility] [address] [place] [address] 02/21/2025 11:00 AM EDT Appointment [facility] Infusion Clinic 1 [address] [place] [address] 02/22/2025 2:30 PM EDT Appointment [facility] Infusion Clinic 1 [address] [place] [address] 02/23/2025 3:30 PM EDT Appointment [facility] Infusion Clinic 1 [address] [place] [address] 03/08/2025 1:00 PM EDT Office Visit [facility] [place] [address] [facility] [place] [address] Teresita Oconnell MD [address] [place] [address] 03/10/2025 2:[address] [facility] CT [address] [place] [address] 03/10/2025 3:45 PM EDT Appointment [facility] Radiology 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 12/16/2024 12/22/2024 Assessment Noted Time PHQ-9 Depression Total Score: 0 09/01/19 25 3:26 PM EDT A fall risk assessment has been complete d for the patient 01/26/2025 10:30 AM EDT A Body Mass Index follow-up plan has been documented for the patient 01/26/2025 11:42 AM EDT documented as of this encounter Care Teams Residential Youth Counselor Relationship Specialty Start Date End Date Laurie Gutierrez MD [address] [place] [address] PCP - General 12/09/23 Joshua Martínez MD [address] [place] [address] Consulting Physician Radiation Oncology 09/19/24 documented as of this encounter
--- OUTSIDE RECORDS SUMMARY | 2025-02-10 13:38 | XMS_ITS | Clinical Summary ---
Author Organization [facility] Address [address] [place] [address] Care Team Providers Care Starch Cooker Name Role Phone Laurie Gutierrez MD Primary Care Provider [phone] Joshua Martínez MD Unavailable Allergies Active Allergy Reactions Criticality Noted Date Comments Cephalexin Nausea,Vomiting Low 11/19/2023 Lisinopril Cough Low 11/19/2023 Meloxicam Nausea Low 06/30/2016 Medications atorvastatin (Lipitor) 40 MG tablet Take 1 tablet by mouth every evening. Active cetirizine (ZyrTEC) 10 MG tablet Take [...] Take 1 tablet by mouth nightly. Active hydrOXYzine HCl (Atarax) 25 MG tablet Take 1 tablet by mouth 3 times a day as needed. Active metFORMIN (Glucophage) 1000 MG tablet Take 1 tablet by mouth 2 times a day with meals. Active ferrous sulfate 325 (65 Fe) MG tablet Take 1 tablet by mouth daily with breakfast. Active pen needle, diabetic 31G X 5 MM misc Use as directed with insulin pen. 100 each 11 11/01/19 Active Additional Information Patient not taking.Reported on 02/01/2025 glucose (Trueplus Glucose) 4 g chewable tablet Chew 4 tablets as needed for low blood sugar. 50 tablet 12 11/01/19 25 Active prochlorperazine (Compazine) 10 MG tabletIndications :Extensive stage primary small cell carcinoma of lung Take 1 tablet by mouth every 6 hours as needed for nausea or vomiting. 30 tablet 3 11/09/19 25 Active gabapentin (Neurontin) 600 MG tablet Take 1 tablet by mouth 4 times a day. 120 tablet 11/09/19 25 Active rivaroxaban (Xarelto) 20 MG tablet Take 1 tablet by mouth 1 time each day with dinner. Take with food. Active ondansetron ODT (Zofran-ODT) 4 MG disintegrating tablet Dissolve 1 tablet on the tongue every 6 hours as needed for nausea or vomiting. 20 tablet 12/11/19 25 Active metoprolol tartrate (Lopressor) 50 MG tablet Take 1 tablet by mouth 3 times a day. 90 tablet 1 12/23/19 25 Active dilTIAZem CD (Cardizem CD) 120 MG 24 hr capsule Take 1 capsule by mouth nightly. 30 capsule 1 12/23/19 25 Active Additional Information Patient not taking.Reported on 02/01/2025 magnesium oxide (Mag-Ox) 400 MG tabletIndications :Extensive stage primary small cell carcinoma of lung Take 1 tablet by mouth 2 times a day. Hold for diarrhea 60 tablet 1 01/03/20 25 Active OLANZapine (ZyPREXA) 5 MG tablet Take 1 tablet by mouth nightly. 30 tablet 2 01/04/20 25 Active levETIRAcetam (Keppra) 500 MG tablet Take 1 tablet by mouth 2 times a day. 60 tablet 2 01/11/20 25 Active cyproheptadine (Periactin) 4 MG tablet Take 1 tablet by mouth 2 times a day. Active Continuous Glucose Sensor (Dexcom G7 Sensor) [facility] USE TO MEASURE BLOOD SUGAR DIRECTED. REPLACE SENSOR EVERY 10 DAYS. 01/11/20 25 Active estrogens, conjugated, (Premarin) vaginal cream Insert 0.25 applicatorsful twice a week by vaginal route. Active Calcium Carb-Cholecalcife rol 600-10 MG-MCG tablet Take 1 tablet by mouth daily. 2024 Discontin ued(Enter ed in Error) triamterene-hydro chlorothiazide (Maxzide-25) 37.5-25 MG tablet Take 1 tablet by mouth every morning. 2024 Discontin ued(Enter ed in Error) Budeson-Glycopyrr ol-Formoterol (Breztri Aerosphere) 160-9-4.8 MCG/ACT aerosol Inhale 2 puffs 2 (two) times a day. 2024 Discontin ued(Enter ed in Error) nystatin (Mycostatin) 564853 UNIT/GM powder Apply on bottom 2 times a day 30 g 11/09/19 25 2024 Discontin ued(Enter ed in Error) acetaminophen (Tylenol) 325 MG tablet Take 2 tablets by mouth every 6 hours. Under [place] law, monthly prescriptions (30 days) can be refilled at 25 days and three-month prescriptions (90 days) at 80 days. Please contact the insurance company with questions if refills are denied. 100 tablet 11/17/19 25 2024 Discontin ued(Enter ed in Error) insulin glargine (Lantus SoloStar) 100 UNIT/ML injection pen Inject 25 Units under the skin nightly. 2024 Discontin ued(Enter ed in Error) NovoLOG FLEXPEN 100 UNIT/ML injection pen Sliding scale three times a day with corrections and meals; BS 150-199=2units; BS 200-249=4units; BS 250-229=6units; 300-349=8 units; 350-399=10 units; anything greater than 399=12units max of 36units daily 2024 Discontin ued(Enter ed in Error) cefepime (Maxipime) 1 g injectionIndicati ons:Incisional infection Infuse 6 gm continuously every 24 hours. Mix per institutional policy. 1 each 12/22/19 25 2024 Active Problems Problem Noted Date Diagnosed [...] Hereditary and idiopathic neuropathy, unspecifie d 05/19/2024 Glycosuria 04/20/2024 UTI (urinary tract infection) 04/20/2024 [...] upper lobe, right bronchus or lung 08/28/2023 Atrophic vaginitis 03/24/2022 Cigarette smoker 03/24/2022 Urethral [...] 10/18/2024 Subarachnoid hemorrhage 10/12/2024 06/0 07/2024 Acute upper respiratory infe ction, unspecified 05/16/2024 02/05/2025 Acute cystitis without hematuria 12/07/2023 11/24/2024 Atrial flutter with rapid ve ntricular response 11/19/2023 10/18/2024 Chemotherapy-induced nausea and vomiting 08/28/2023 02/05/2025 Abdominal bloating 04/03/2022 Nausea and vomiting 04/03/2022 02/06/20 Encounters Date Type Department Care Team Description 02/09/2025 Orders Only [facility] [address] [phone] Sheridan Vila RN Small cell carcinoma of right lung, unspecified part of lung (Primary Dx) 02/09/2025 Telephone [facility] [address] [phone] Satnam Colvin MD 02/06/2025 Telephone [facility] [address] [address] Satnam Colvin MD 02/02/2025 12:58 PM EDT - 02/02/2025 11:59 PM EDT Hospital Encounter [facility] [address] [place] [address] Small cell carcinoma of right lung, unspecified part of lung (Primary Dx) Discharge Disposition: Home or Self Care 02/02/2025 Travel 02/01/2025 12:16 PM EDT - 02/01/2025 11:59 PM EDT Hospital Encounter [facility] [address] [place] [address] Small cell carcinoma of right lung, unspecified part of lung (Primary Dx) Discharge Disposition: Home or Self Care 02/01/2025 Travel 01/31/2025 11:00 AM EDT - 01/31/2025 11:59 PM EDT Hospital Encounter [facility] [address] [place] [address] Small cell carcinoma of right lung, unspecified part of lung (Primary Dx); Extensive stage primary small cell carcinoma of lung Discharge Disposition: Home or Self Care 01/31/2025 10:00 AM EDT Office Visit [facility] [address] [facility] [address] [place] [address] Estelle Bose, SHARDA 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); Neoplastic (malignant) related fatigue; Drug-induced nausea and vomiting; Seizures (CMS/HCC); Small cell carcinoma of right lung, unspecified part of lung 01/31/2025 9:30 AM EDT Clinical Support [facility] [address] [phone] Extensive stage primary small cell carcinoma of lung 01/31/2025 Travel 01/30/2025 Orders Only [facility] [address] [place] [address] Satnam Colvin MD 01/26/2025 4:30 PM EDT Office Visit [facility] [address] [place] [address] Lia Barnes, PATIENT OFFICE REP Surgical site infection (Primary Dx); Hospital discharge follow-up; Medication management 01/26/2025 Travel 01/25/2025 Clinical Support [facility] [address] [place] [address] Agustina Dawson, PharmD 01/24/2025 Lab Requisition [facility] [address] [place] [address] Lucas Shearer MD Infection following a procedure, other surgical site, initial encounter; 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 acute cor pulmonale (CMS/HCC); Dyspnea, unspecified; Secondary malignant neoplasm of brain (CMS/HCC) 01/17/2025 3:12 PM EDT - 01/18/2025 7:02 PM EDT Hospital Encounter [facility] Emergency Department [address] [place] [phone] Radha Stokes MD Zummer, Jaryd K, MD Patel, Abhisek A, MD PICC line infection, initial encounter (Primary Dx); Paroxysmal atrial fibrillation (CMS/HCC); History of craniotomy Discharge Disposition: Home or Self Care 01/17/2025 Travel 01/16/2025 Lab Requisition [facility] Laboratory Services [address] [place] [address] Lucas Shearer MD Infection following a procedure, other surgical site, initial encounter 01/10/2025 9:40 AM EDT Office Visit [facility] 800 [facility], [address] [place] [address] Satnam Colvin MD 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); Seizures (CMS/HCC); Encounter for antineoplastic chemotherapy; Neoplastic (malignant) related fatigue; SDH (subdural hematoma) (CMS/HCC) 01/10/2025 9:00 AM EDT Clinical Support [facility] [address] [phone] Extensive stage primary small cell carcinoma of lung 01/10/2025 Orders Only [facility] [address], [address] [place] [address] Abhilash Bangura MD 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CMS/HCC) (Primary Dx) 01/10/2025 Travel 01/09/2025 Lab Requisition [facility] S Laboratory Services [address] [place] [address] Yosi Richmond MD Infection following a procedure, other surgical site, initial encounter; 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 acute cor pulmonale (CMS/HCC); Dyspnea, unspecified; Secondary malignant neoplasm of brain (CMS/HCC) 01/05/2025 1:00 PM EDT Office Visit [facility] [address] [place] [phone] Lia Barnes APRN Surgical site infection (Primary Dx) 01/05/2025 Travel 01/04/2025 8:07 PM EDT - 01/04/2025 11:51 PM EDT Emergency [facility] Emergency Department [address] [place] [address] Brionna Roberts MD Owens, Susan E, MD Bleeding from PICC line, initial encounter (Primary Dx) Discharge Disposition: Home or Self Care 01/04/2025 Travel 01/04/2025 Social Work Psych Oncology [address] [place] [address] Mariah Rowley 01/03/2025 9:40 AM EDT Office Visit [facility] [address] [facility] [address] [place] [address] Satnam Colvin MD 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); Seizures (CMS/HCC); Chemotherapy-induced neutropenia (CMS/HCC); Encounter for antineoplastic chemotherapy; Neoplastic (malignant) related fatigue; Anorexia 01/03/2025 Travel 01/02/2025 Lab Requisition [facility] S Laboratory Services [address] [facility] [place] [phone] Yosi Richmond MD Infection following a procedure, other surgical site, initial encounter; 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 acute cor pulmonale (CMS/HCC); Dyspnea, unspecified; Secondary malignant neoplasm of brain (CMS/HCC) 01/02/2025 Orders Only [facility] [address] [phone] Sheridan Vila, RN 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) 12/31/2024 12:55 PM EDT - 12/31/2024 4:03 PM EDT Emergency [facility] Emergency Department [address] [place] [address] Juwan Da Silva MD Houck, Jessica L, DO PIC line (peripherally inserted central catheter) flush (Primary Dx) Discharge Disposition: Home or Self Care 12/31/2024 Travel 12/26/2024 Lab Requisition [facility] Laboratory Services [address] [place] [address] Yosi Richmond MD Infection following a procedure, other surgical site, initial encounter; 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 acute cor pulmonale (CMS/HCC); Dyspnea, unspecified; Secondary malignant neoplasm of brain (CMS/HCC) 12/23/2024 Clinical Support [facility] [address] [place] [phone] Daniella Sargent, PharmD 12/18/2024 Travel 12/16/2024 1:31 PM EDT Anesthesia Event [facility] OPERATING ROOM [address] [place] [phone] Lavon Garcia MD Rock, Holly R, PA 12/16/2024 12:05 PM EDT - 12/16/2024 2:00 PM EDT Surgery [facility] [address] [place] [phone] Abhilash Bangura MD IRRIGATION AND DEBRIDEMENT, WOUND [79091 (CPT )] 12/16/2024 Travel 12/15/2024 8:36 PM EDT - 12/22/2024 3:43 PM EDT Hospital Encounter [facility] Inpatient [address] [place] [address] Deandre Cabrera MD Raza, Syed A, MD Mills, Sarah C, DO Kohlitz, Patrick J, MD Incisional infection (Primary Dx); Multiple subsegmental pulmonary emboli without acute cor pulmonale (CMS/HCC); Atrial fibrillation with RVR (CMS/HCC); History of lung cancer Discharge Disposition: Home or Self Care 12/15/2024 Travel 12/15/2024 Telephone [facility] [address] [place] [address] Abhilash Bangura MD 12/12/2024 Patient Outreach [facility] [address], [address] [place] [address] Sabine Morales LPN [facility] 12/08/2024 Travel 12/06/2024 Travel 12/03/2024 Travel 12/02/2024 Travel 12/01/2024 Travel 11/30/2024 Travel 11/29/2024 3:11 PM EDT - 12/10/2024 6:03 PM EDT Hospital Encounter [facility] Inpatient [address] [place] [address] Nisha Cordova MD Davidson, Blake M, MD Arora, Ankit, MD Engblade, MD Babar Montano Anne E, MD Seizure (CMS/HCC) (Primary Dx); Acute heart failure, unspecified heart failure type (CMS/HCC) Discharge Disposition: Home-Health Care [facility] 11/29/2024 12:30 PM EDT - 11/29/2024 3:10 PM EDT Hospital Encounter [facility] 1 [address] [place] [address] 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) Discharge Disposition: Home or Self Care 11/29/2024 11:00 AM EDT Office Visit [facility] [address] [facility], [address]nd [place] [address] Satnam Colvin MD Seizures (CMS/HCC) (Primary Dx); Extensive stage primary small cell carcinoma of lung; Encounter for antineoplastic chemotherapy; Chemotherapy-induced neutropenia (CMS/HCC); Brain mass; Neoplastic (malignant) related fatigue; SDH (subdural hematoma) (CMS/HCC); Right leg weakness 11/29/2024 10:30 AM EDT Clinical Support [facility] [address] [facility], [address]nd [place] [address] Extensive stage primary small cell carcinoma of lung 11/29/2024 Travel 2024 Telephone [facility] [place] [address] [place] [address] Teresita Oconnell MD HCN Clinical Concern/Question 11/25/2024 Patient Outreach [facility] [address], [address] [place] [address] Sabine Morales LPN [facility] 11/24/2024 Patient Outreach POP[facility]ATION [address], [address] [place] [address] Sabine Morales LPN [facility] 11/23/2024 Patient Outreach [facility]ATION [address] [place] [address] Saibne Morales LPN [facility] 11/22/2024 Travel 11/21/2024 Patient Outreach POP[facility]ATION [address], [address] [address] Paradise Pacheco RN Link 11/19/2024 12:35 AM EDT - 11/22/2024 4:58 PM EDT Hospital Encounter [facility] Inpatient [address] [place] [address] Jose David Ponce MD Wolak, Megan M, MD Atrial fibrillation with rapid ventricular response (CMS/HCC) (Primary Dx); Small cell carcinoma of lung, unspecified laterality, unspecified part of lung; Type 2 diabetes mellitus with diabetic neuropathy, unspecified whether pet caretaker insulin use (CMS/HCC) Discharge Disposition: Home-Health Care [facility] 11/19/2024 Travel 11/18/2024 Orders Only External Location [address] [place] [address] Nuria Lunsford PA 11/18/2024 Orders Only External Location [address] [place] [address] Provider, External 11/16/2024 Travel 11/15/2024 4:42 PM EDT - 11/16/2024 3:39 PM EDT Hospital Encounter [facility] Emergency Department [address] [place] [address] Ashu Ortiz MD Nickols, MD Tamela Antony, Jojo Segura MD SAH (subarachnoid hemorrhage) (CMS/HCC) (Primary Dx); SDH (subdural hematoma) (CMS/HCC); Nondisplaced fracture of distal phalanx of left thumb, initial encounter for closed fracture; Acute cystitis without hematuria Discharge Disposition: Home or Self Care 11/15/2024 Orders Only External Location [address] [place] [address] Regina Katz, PATIENT OFFICE REP 11/15/2024 Orders Only External Location [address] [place] [address] Regina Katz, PATIENT OFFICE REP 11/15/2024 Orders Only External Location [address] [place] [address] Regina Katz, PATIENT OFFICE REP 11/15/2024 Orders Only External Location [address] [place] [address] Regina Katz, PATIENT OFFICE REP 11/15/2024 Travel 11/15/2024 Orders Only External Location [address] [place] [address] Provider, External 11/15/2024 Orders Only External Location [address] [place] [address] Provider, External 11/15/2024 Orders Only External Location [address] [place] [address] Provider, External 11/15/2024 Orders Only External Location [address] [place] [address] Regina Katz, PATIENT OFFICE REP 11/15/2024 Orders Only External Location [address] [place] [address] Provider, External 11/14/2024 8:45 AM EDT - 11/14/2024 11:59 PM EDT Hospital Encounter [facility] Radiation [address] [place] [address] Discharge Disposition: Still a Patient 11/14/2024 Travel 11/10/2024 2:39 PM EDT - 11/10/2024 11:59 PM EDT Hospital Encounter [facility] 1 [address] [place] [address] 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) Discharge Disposition: Home or Self Care 11/10/2024 Travel from Last 3 Months Immunizations Immunization [...] drink first t laurie in the morning (EYE-PROGRAM ASSISTANT) to steady your nerves or to get rid of a hangover? 0 12/02/2024 CAGE Questionnaire Score 0 025 Utilities Answer Date Recorded In the past 12 months has th e electric, gas, oil, or water [employer] threatened to shut off services in your [...] Mass Index 36.46 02/02/2025 1:02 PM EDT Plan of Treatment Upcoming Encounters Date Type Department Care Team (Late st Contact Info) Description 02/21/2025 8:45 AM EDT Clinical Support [facility] [address] [facility], [address] [place] [address] 02/21/2025 9:20 AM EDT Office Visit [facility] 800 [facility], [address] [place] [address] Satnam Colvin MD 800 [facility] Nuria Degroot [facility] [address] [place] [address] 02/21/2025 11:00 AM EDT Appointment [facility] 1 [address] [place] [address] 02/22/2025 2:30 PM EDT Appointment [facility] 1 [address] [place] [address] 02/23/2025 3:30 PM EDT Appointment [facility] 1 [address] [place] [address] 03/08/2025 1:00 PM EDT Office Visit [facility] [place] [address] [place] [address] Teresita Oconnell MD [address] [place] [address] 03/10/2025 2:20 PM EDT Appointment [facility] [address] [place] [address] 03/10/2025 3:45 PM EDT Appointment [facility] Radiology [address], [address] [place] [phone] 03/14/2025 11:00 AM EDT Office Visit [facility] [address] [place] [address] Satnam Colvin MD 800 [facility] [address] [place] [address] Health Maintenance Due Date Last Done Comments [...] - Risk 60-74 years 1-dose series) 2020 [id number] Vaccine (9 - Mixed Product risk season) 2025 03/15/2024, 06/11/2023, 07/01/2022, Additional history exists [facility]-Influenza Vaccine (#1) 01/16/202501/31, 02/23/2023, 03/17/2022, Additional history exists [facility]-Diabetes: Hemoglobin A1C 03/02/2025 09/02/2024, 11/19/2023 [facility]- SDOH Screenings 06/18/2025 [facility]-Adult SDOH Screenings 06/18/2025 12/16/2024 [facility]-Depression Screening 01/05/2026 01/05/2025, 08/16 [facility]-Breast Cancer Screening 01/14/2026 01/15/2024, 0 01/15/2024 [facility]-DTaP,Tdap,and Td Vaccines (2 - Td or Tdap) 09/04/2027 09/03/2017 [facility]-Hepatitis A Vaccines Aged Out 09/03/2018, 01/17 No longer eligible based on patient's age to complete this topic [facility]-HIV Screening Completed 08/31/2024 [facility]-Hepatitis C Screening Completed 08/31/2024, 02/2014 [facility]-Lung Cancer Screening Discontinued 2024, 10/25/2024, 10/13/2024, Additional history exists [facility]-Obesity Intervention Completed 025, 02/01/2025, 01/26/2025, Additional history exists HPV Vaccines Aged Out [...] this topic Medical Devices Implanted Type Area Vascular Technologist Sonographer Device Identifier Shelf Expiration Date Model / Serial / Lot Graft Dura Repair 2x2 Synthecel - [id number] Implanted:Qty: 1 on 09/05/2024 by Abhilash Bangura MD at [facility]03/17/2026 [id number]. [id number] / / [id number] Screw Ti Matrixneuro Selfdrill 4mm - S. - [id number] Implanted:Qty: 12 on 09/05/2024 by Abhilash Bangura MD at [facility]-09/05/2025 [id number] / . / Plate, 2 Hole Low Profile - S. - [id number] Implanted:Qty: 2 on 09/05/2024 by Abhilash Bangura MD at [facility]-09/05/2025 [id number] / . / Cover, Neuro Largo Lp 17mm - S. - [id number] Implanted:Qty: 2 on 09/05/2024 by Abhilash Bangura MD at [facility]-09/05/2025 [id number] / . / Procedures Procedure Name Priority Date/Time Associated Diagnosis Comments EXTRA TUBE LIGHT GREEN TOP Routine 01/31/2025 11:17 AM EDT Extensive stage primary small cell carcinoma of lung EXTRA TUBES Routine 01/31/2025 11:17 AM EDT Extensive stage primary small cell carcinoma of lung TSH REFLEX FT4 Routine 01/31/2025 11:17 AM [...] stage primary small cell carcinoma of lung PICC REMOVAL (CLINIC-PERFORMED) Routine 01/26/2025 11:33 AM EDT Surgical site infection Hospital discharge follow-up Medication management CBC WITH AUTO DIFFERENTIAL Routine 01/24/2025 11:45 AM EDT Infection following a procedure, other surgical site, initial encounter 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 acute cor pulmonale (CMS/HCC) Dyspnea, unspecified Secondary malignant neoplasm of brain (CMS/HCC) UREA NITROGEN, PLASMA Routine 01/24/2025 11:45 AM EDT Infection following a procedure, other surgical site, initial encounter 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 acute cor pulmonale (CMS/HCC) Dyspnea, unspecified Secondary malignant neoplasm of brain (CMS/HCC) CREATININE, PLASMA Routine 01/24/2025 11 :45 AM EDT Infection following a procedure, other surgical site, initial encounter 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 acute cor pulmonale (CMS/HCC) Dyspnea, unspecified Secondary malignant neoplasm of brain (CMS/HCC) C-REACTIVE PROTEIN, PLASMA Routine 01/24/2025 11:45 AM EDT Infection following a procedure, other surgical site, initial encounter 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 acute cor pulmonale (CMS/HCC) Dyspnea, unspecified Secondary malignant neoplasm of brain (CMS/HCC) C-REACTIVE PROTEIN, PLASMA STAT 01/18/2025 9:38 AM EDT SEDIMENTATION RATE, AUTOMATED STAT 01/18/2025 9:38 AM EDT CBC W/O DIFFERENTIAL STAT 01/18/2025 9:38 AM EDT ECG ADULT Routine 01/17/2025 10:29 PM EDT XR CHEST 2 VIEWS STAT 01/17/2025 5:44 PM EDT BLOOD CULTURE (AEROBIC/ANAEROBIC SET) STAT 01/17/2025 5:12 PM EDT VAS US VENOUS DUPLEX UPPER EXTREMITY UNILATERAL STAT 01/17/2025 4:32 PM EDT C-REACTIVE PROTEIN, PLASMA STAT 01/17/2025 3:42 PM EDT LACTATE, VENOUS STAT 01/17/2025 3:42 PM EDT CBC WITH AUTO DIFFERENTIAL STAT 01/17/2025 3:42 PM EDT BASIC METABOLIC PANEL, PLASMA STAT 01/17/2025 3:42 PM EDT BLOOD CULTURE (AEROBIC/ANAEROBIC SET) STAT 01/17/2025 3:42 PM EDT CBC WITH AUTO DIFFERENTIAL Routine 01/16/2025 11:30 AM EDT Infection following a procedure, other surgical site, initial encounter UREA NITROGEN, PLASMA Routine 01/16/2025 11:30 AM EDT Infection following a procedure, other surgical site, initial encounter CREATININE, PLASMA Routine 01/16/2025 11 :30 AM EDT Infection following a procedure, other surgical site, initial encounter C-REACTIVE PROTEIN, PLASMA Routine 01/16/2025 11:30 AM EDT Infection following a procedure, other surgical site, initial encounter TSH REFLEX FT4 Routine 01/10/2025 9:21 AM [...] of lung CBC WITH AUTO DIFFERENTIAL Routine 01/09/2025 10:30 AM EDT Infection following a procedure, other surgical site, initial encounter 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 acute cor pulmonale (CMS/HCC) Dyspnea, unspecified Secondary malignant neoplasm of brain (CMS/HCC) UREA NITROGEN, PLASMA Routine 01/09/2025 10:30 AM EDT Infection following a procedure, other surgical site, initial encounter 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 acute cor pulmonale (CMS/HCC) Dyspnea, unspecified Secondary malignant neoplasm of brain (CMS/HCC) CREATININE, PLASMA Routine 01/09/2025 10 :30 AM EDT Infection following a procedure, other surgical site, initial encounter 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 acute cor pulmonale (CMS/HCC) Dyspnea, unspecified Secondary malignant neoplasm of brain (CMS/HCC) C-REACTIVE PROTEIN, PLASMA Routine 01/09/2025 10:30 AM EDT Infection following a procedure, other surgical site, initial encounter 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 acute cor pulmonale (CMS/HCC) Dyspnea, unspecified Secondary malignant neoplasm of brain (CMS/HCC) XR CHEST 1 VIEW STAT 01/04/2025 10:36 PM EDT PROTHROMBIN TIME(PT) / INR STAT 01/04/2025 8:02 PM EDT CBC WITH AUTO DIFFERENTIAL STAT 01/04/2025 8:02 PM EDT CBC WITH AUTO DIFFERENTIAL Routine 01/02/2025 10:40 [...] of brain (CMS/HCC) CREATININE, PLASMA Routine 01/02/2025 10 :40 AM [...] of brain (CMS/HCC) CREATININE, PLASMA Routine 12/26/2024 10 :50 AM [...] 8:11 AM EDT MAGNESIUM, PLASMA Routine 12/22/2024 12: 26 AM EDT CBC W/O DIFFERENTIAL Routine 12/22/2024 [...] PLASMA Routine 12/19/2024 12: 25 AM EDT INSERT PICC LINE Routine 12/18/2024 [...] ANESTHESIA PLACEHOLDER Routine 12/16/2024 1:40 PM EDT MO AN ELECTIVE ENDOTRACHEAL AIRWAY Routine 12/16/2024 1:40 PM EDT MO DEBRIDEMENT, SKIN, SUB-Q TISSUE,MUSCLE,=<20 SQ CM [...] PANEL, VENOUS STAT 12/16/19 11:18 PM EDT N-TERMINAL PROBNP, PLASMA STAT [...] 6:05 AM EDT MAGNESIUM, PLASMA Add-On 12/03/2024 12: 30 AM EDT LACTATE, VENOUS Routine 12/03/2024 12:30 [...] UNSOLICITED RESULTS Routine 12/01/2024 1:08 PM EDT MO EEG,W/AWAKE & DROWSY RECORD Routine 12/01/2024 12:59 [...] AM EDT BLOOD GAS PANEL, VENOUS Routine 12/01/19 2:09 AM EDT PROCALCITONIN, PLASMA Routine 11/30/2024 [...] PM EDT BLOOD GAS PANEL, VENOUS STAT 11/30/19 8:30 PM EDT URINE MEEK PANEL STAT [...] PM EDT BLOOD GAS PANEL, VENOUS Routine 11/30/19 2:35 PM EDT COMPREHENSIVE METABOLIC PANEL, PLASMA [...] 12:57 AM EDT MAGNESIUM, PLASMA Routine 11/20/2024 12: 57 AM EDT PHOSPHORUS, PLASMA Routine 11/20/2024 12 :57 AM EDT BASIC METABOLIC PANEL, PLASMA Routine [...] 2:[address] NEURO OUTSIDE IMAGES 11/16/19 2:[address] OUTSIDE IMAGES 11/15/2024 2:[address] OUTSIDE IMAGES 11/15/2024 2:[address] OUTSIDE IMAGES 11/15/2024 2:[address] OUTSIDE IMAGES 11/15/2024 2:3 8 PM EDT HEMOGLOBIN A1C Routine 09/02/2024 3:25 AM EDT HEPATITIS C ANTIBODY - ED W/REFLEX TO HCV QUANT PCR STAT 08/31/2024 5:54 PM EDT ED HIV 1/2 ANTIBODY/ANTIGEN SCREEN WITH REFLEX TO HIV I/II DIFFERENTIATION STAT 08/31/2024 5:54 PM EDT from Last 3 Months or Most Recently Relevant to Health Maintenance Results * TSH reflex FT4 (01/31/2025 11:17 AM EDT) Only the most recent of4 resultswithin the time period is included. Thyroid Stimulating Hormone, Plasma 1.46 0.40 - 4.20 uIU/mL 01/31/2025 12:18 PM EDT [facility] Blood Venous blood specimen / Unknown Venipuncture / Unknown 01/31/2025 11:17 AM EDT 01/31/2025 11:27 AM EDT Satnam Dnune MD LAB BLOOD ORDERABLES Fi nal Result Performing Organization Address City/[facility]/ZIP Co de Phone Number [facility] [address] [place] [address] * Light Green Top (01/31/2025 11:17 AM EDT) Pathologist [facility] Extra Hold for add-ons 01/31/2025 2:01 PM EDT [facility] Comment:Auto resulted. Blood Venous blood specimen / Unknown Venipuncture / Unknown 01/31/2025 11:17 AM EDT 01/31/2025 11:36 AM EDT Estelle Bose APRN LAB BLOOD ORDERABLES Fi nal Result Performing Organization Address City/[facility]/ZIP Co de Phone Number [facility] [address] [place] [address] * (ABNORMAL) CBC and differential (01/31/2025 11:17 AM EDT) Only the most recent of14 resultswithin the time period is included. Pathologist [facility] WBC Count 6.75 3.70 - 10.30 10*3/uL LAB HEMATOLOGY METHOD 01/31/2025 11:41 AM EDT [facility] RBC Count 3.15(L) 3.90 - 5.20 10*6/uL LAB HEMATOLOGY METHOD 01/31/2025 11:41 AM EDT [facility] HGB 10.1(L) 11.2 - 15.7 g/dL LAB HEMATOLOGY METHOD 01/31/2025 11:41 AM EDT [facility] HCT 32.5(L) 34.0 - 45.0 % LAB HEMATOLOGY METHOD 01/31/2025 11:41 AM EDT [facility] Platelet Count 172 155 - 369 10*3/uL LAB HEMATOLOGY METHOD 01/31/2025 11:41 AM EDT [facility] MCV 103(H) 79 - 98 fL LAB HEMATOLOGY METHOD 01/31/2025 11:41 AM EDT [facility] MCH 32.1(H) 26.0 - 32.0 pg LAB HEMATOLOGY METHOD 01/31/2025 11:41 AM EDT [facility] MCHC 31.1 30.7 - 35.5 g/dL LAB HEMATOLOGY METHOD 01/31/2025 11:41 AM EDT [facility] RDW 17.7(H) 11.5 - 14.5 % LAB HEMATOLOGY METHOD 01/31/2025 11:41 AM EDT [facility] MPV 9.5 8.8 - 12.5 fL LAB HEMATOLOGY METHOD 01/31/2025 11:41 AM EDT [facility] nRBC 0.0 <=0.0 per 100 WBCs LAB HEMATOLOGY METHOD 01/31/2025 11:41 AM EDT [facility] Differential Type Automated LAB HEMATOLOGY METHOD 01/31/2025 11:41 AM EDT [facility] Neutrophils % 75 % LAB HEMATOLOGY METHOD 01/31/2025 11:41 AM EDT [facility] Lymphocytes % 14 % LAB HEMATOLOGY METHOD 01/31/2025 11:41 AM EDT [facility] Monocytes % 8 % LAB HEMATOLOGY METHOD 01/31/2025 11:41 AM EDT [facility] Eosinophils % 2 % LAB HEMATOLOGY METHOD 01/31/2025 11:41 AM EDT [facility] Basophils % 1 % LAB HEMATOLOGY METHOD 01/31/2025 11:41 AM EDT [facility] Immature Granulocytes % 0 % LAB HEMATOLOGY METHOD 01/31/2025 11:41 AM EDT [facility] Neutrophils Absolute 4.98 1.60 - 6.10 10*3/uL LAB HEMATOLOGY METHOD 01/31/2025 11:41 AM EDT [facility] Lymphocytes Absolute 0.95(L) 1.20 - 3.90 10*3/uL LAB HEMATOLOGY METHOD 01/31/2025 11:41 AM EDT [facility] Monocytes Absolute 0.56 0.30 - 0.90 10*3/uL LAB HEMATOLOGY METHOD 01/31/2025 11:41 AM EDT [facility] Eosinophils Absolute 0.15 0.00 - 0.50 10*3/uL LAB HEMATOLOGY METHOD 01/31/2025 11:41 AM EDT [facility] Basophils Absolute 0.08 0.00 - 0.10 10*3/uL LAB HEMATOLOGY METHOD 01/31/2025 11:41 AM EDT [facility] Immature Granulocytes Absolute 0.03 0.00 - 0.06 10*3/uL LAB HEMATOLOGY METHOD 01/31/2025 11:41 AM EDT [facility] Blood Venous blood specimen / Unknown Venipuncture / Unknown 01/31/2025 11:17 AM EDT 01/31/2025 11:27 AM EDT Narrative [facility] - 01/31/2025 11:41 AM EDT Therapeutic decision making should be based on absolute values, rather than percentages. Satnam Dunne MD LAB BLOOD ORDERABLES Fi nal Result Performing Organization Address City/[facility]/ZIP Co de Phone Number [facility] [address] [place] [address] * (ABNORMAL) Magnesium (01/31/2025 11:17 AM EDT) Only the most recent of18 resultswithin the time period is included. Magnesium, Plasma 1.2(L) 1.9 - 2.4 mg/dL 01/31/2025 12:18 PM EDT [facility] Blood Venous blood specimen / Unknown Venipuncture / Unknown 01/31/2025 11:17 AM EDT 01/31/2025 11:27 AM EDT Satnam Dunne MD LAB BLOOD ORDERABLES Fi nal Result Performing Organization Address City/[facility]/ZIP Co de Phone Number [facility] [address] [place] [address] * (ABNORMAL) Comprehensive metabolic panel (01/31/2025 11:17 AM EDT) Only the most recent of12 resultswithin the time period is included. Glucose, Plasma 110(H) 74 - 99 mg/dL 01/31/2025 12:18 PM EDT [facility] BUN, Plasma 7(L) 8 - 23 mg/dL 01/31/2025 12:18 PM EDT [facility] Creatinine, Plasma 0.67 0.60 - 1.10 mg/dL 01/31/2025 12:18 PM EDT [facility] BUN/Creatinine Ratio 10 01/31/2025 12:18 PM EDT [facility] Sodium, Plasma 143 136 - 145 mmol/L 01/31/2025 12:18 PM EDT [facility] Potassium, Plasma 4.7 3.6 - 4.9 mmol/L 01/31/2025 12:18 PM EDT [facility] Comment:Hemolyzed, result ma y be falsely increased. Chloride, Plasma 111(H) 97 - 107 mmol/L 01/31/2025 12:18 PM EDT [facility] CO2, Plasma 18(L) 22 - 29 mmol/L 01/31/2025 12:18 PM EDT [facility] Anion Gap 14 6 - 16 mmol/L 01/31/2025 12:18 PM EDT [facility] Total Calcium, Plasma 8.1(L) 8.9 - 10.2 mg/dL 01/31/2025 12:18 PM EDT [facility] Total Protein 6.9 6.3 - 7.9 g/dL 01/31/2025 12:18 PM EDT [facility] Albumin, Plasma 2.6(L) 3.5 - 5.2 g/dL 01/31/2025 12:18 PM EDT [facility] AST, Plasma 56(H) 10 - 35 U/L 01/31/2025 12:18 PM EDT [facility] Comment:Hemolyzed, result ma y be falsely increased. ALT, Plasma 9(L) 10 - 35 U/L 01/31/2025 12:18 PM EDT [facility] Comment:Hemolyzed, result ma y be falsely increased or decreased. Alkaline Phosphatase, Plasma 120 46 - 142 U/L 01/31/2025 12:18 PM EDT [facility] Comment:Hemolyzed, result ma y be falsely decreased. Total Bilirubin, Plasma 0.5 0.2 - 1.1 mg/dL 01/31/2025 12:18 PM EDT [facility] eGFRcr 97.7 mL/min/1.7 3m*2 01/31/2025 12:18 PM EDT [facility] Comment:Reported eGFRcr in m L/min/1.73m2 is based the CKD-EPI 2020 equation that does not use a race coefficient. Blood Venous blood specimen / Unknown Venipuncture / Unknown 01/31/2025 11:17 AM EDT 01/31/2025 11:27 AM EDT us Satnam Dunne MD LAB BLOOD ORDERABLES Fi nal Result [facility] [address] [place] [address] * PICC Removal (Clinic-Performed) (01/26/2025 11:33 AM EDT) Narrative Kaila Farmer RN - 01/26/2025 11:33 AM EDT Kaila Farmer RN 01/26/2025 11:42 AM PICC Removal (Clinic-Performed) Date/Time: 01/26/2025 11:33 AM Performed by: Kaila Farmer, JOSE MARTIN Authorized by: Lia Barnes APRN Indications: vascular access Patient position: flat Catheter type: single lumen Post-procedure: dressing applied Patient tolerance: patient tolerated the procedure well with no immediate complications Comments: After 30 minutes, no complaints of pain, dizziness or shortness of air. Patient ambulated independently. Lia Barnes APRN IN CLINIC/BEDSIDE ORDERA BLES Final Result * Creatinine, plasma (01/24/2025 11:45 AM EDT) Only the most recent of5 resultswithin the time period is included. Creatinine, Plasma 0.82 0.60 - 1.10 mg/dL 01/24/2025 3:49 PM EDT [facility] eGFRcr 80.0 mL/min/1.7 3m*2 01/24/2025 3:49 PM EDT [facility] Comment:Reported eGFRcr in m L/min/1.73m2 is based the CKD-EPI 2020 equation that does not use a race coefficient. Blood Venous blood specimen / Unknown 01/24/2025 11:45 AM EDT 01/24/2025 3:07 PM EDT Result Arlet Shearer MD LAB BLOOD ORDERABLE S Final Result Performing Organization Address City/[facility]/ZIP Co de Phone Number [facility] [address] [place] [address] * C-reactive protein (01/24/2025 11:45 AM EDT) Only the most recent of11 resultswithin the time period is included. CRP, Plasma 4.7 <=8.0 mg/L 01/24/2025 3:[address] [facility] Blood Venous blood specimen / Unknown 01/24/2025 11:45 AM EDT 01/24/2025 3:07 PM EDT Narrative [facility] - 01/24/2025 3:49 PM EDT This CRP test is appropriate for assessment of infection, systemic inflammation and/or tissue injury. To assess cardiovascular disease risk order high sensitivity CRP (CRPH). Result Arlet Shearer MD LAB BLOOD ORDERABLE S Final Result Performing Organization Address [facility] Co de Phone Number [facility] [address] [place] [address] * Urea Nitrogen, Plasma (01/24/2025 11:45 AM EDT) Only the most recent of5 resultswithin the time period is included. BUN, Plasma 11 8 - 23 mg/dL 01/24/2025 3:49 PM EDT [facility] Blood Venous blood specimen / Unknown 01/24/2025 11:45 AM EDT 01/24/2025 3:07 PM EDT us Peewee Shearer MD LAB BLOOD ORDERABLE S Final Result Performing Organization Address City/[facility] Co de Phone Number [facility] [address] [place] [address] * (ABNORMAL) Sed rate, automated (01/18/2025 9:38 AM EDT) Only the most recent of3 resultswithin the time period is included. Sedimentation Rate 39(H) <30 mm/hr 2024 10:20 AM EDT [facility] Blood Venous blood specimen / Unknown Venipuncture / Unknown 01/18/2025 9:38 AM EDT 01/18/2025 9:54 AM EDT us Haroon Liu MD LAB BLOOD ORDERABLES Final Re sult [facility] [address] [place] [address] * (ABNORMAL) CBC W/O Differential (01/18/2025 9:38 AM EDT) Only the most recent of18 resultswithin the time period is included. WBC Count 5.48 3.70 - 10.30 10*3/uL LAB HEMATOLOGY METHOD 01/18/2025 10:01 AM EDT [facility] RBC Count 2.62(L) 3.90 - 5.20 10*6/uL LAB HEMATOLOGY METHOD 01/18/2025 10:01 AM EDT [facility] HGB 8.2(L) 11.2 - 15.7 g/dL LAB HEMATOLOGY METHOD 01/18/2025 10:01 AM EDT [facility] HCT 26.7(L) 34.0 - 45.0 % LAB HEMATOLOGY METHOD 01/18/2025 10:01 AM EDT [facility] Platelet Count 123(L) 155 - 369 10*3/uL LAB HEMATOLOGY METHOD 01/18/2025 10:01 AM EDT [facility] MCV 102(H) 79 - 98 fL LAB HEMATOLOGY METHOD 01/18/2025 10:01 AM EDT [facility] MCH 31.3 26.0 - 32.0 pg LAB HEMATOLOGY METHOD 01/18/2025 10:01 AM EDT [facility] MCHC 30.7 30.7 - 35.5 g/dL LAB HEMATOLOGY METHOD 01/18/2025 10:01 AM EDT [facility] RDW 20.3(H) 11.5 - 14.5 % LAB HEMATOLOGY METHOD 01/18/2025 10:01 AM EDT [facility] MPV 10.2 8.8 - 12.5 fL LAB HEMATOLOGY METHOD 01/18/2025 10:01 AM EDT [facility] nRBC 0.0 <=0.0 per 100 WBCs LAB HEMATOLOGY METHOD 01/18/2025 10:01 AM EDT [facility] Blood Venous blood specimen / Unknown Venipuncture / Unknown 01/18/2025 9:38 AM EDT 01/18/2025 9:54 AM EDT us Haroon Liu MD LAB BLOOD ORDERABLES Final Re sult [facility] [address] [place] [address] * ECG Adult (01/17/2025 10:29 PM EDT) Only the most recent of12 resultswithin the time period is included. EKG DIAGNOSIS CLASS Abnormal MUSE ECG Ventricular Rate 150 BPM MUSE ECG QRSD Interval 82 ms MUSE ECG QT Interval 220 ms MUSE ECG QTC Interval 347 ms MUSE ECG R [place] 36 degrees MUSE ECG T Wave [place] 232 degrees MUSE ECG Diagnosis Atrial fibrillation with rapid ventricular response MUSE ECG Diagnosis ST & T wave abnormality, consider inferior ischemia MUSE ECG Diagnosis ST & T wave abnormality, consider anterior ischemia MUSE ECG Diagnosis MUSE ECG Diagnosis MUSE ECG Diagnosis Confirmed by Malik Webb ([id number]) on 01/18/2025 3:22:43 PM MUSE ECG 01/17/2025 10:2 9 PM EDT 01/18/2025 3:22 PM EDT us Munira Dwyer MD ECG ORDERABLES Final Result MUSE ECG * XR Chest 2 Views [...] Culture (Aerobic/Anaerobet Set) (01/17/2025 5:12 PM EDT) Only the most recent of8 resultswithin the time period is included. Culture No growth at day 5 01/22/2025 6:09 PM EDT [facility] Blood Structure of right wrist region / Unknown Venipuncture / Unknown 01/17/2025 5:12 PM EDT 01/17/2025 5:37 PM EDT Narrative [facility] - 01/22/2025 6:09 PM EDT Low blood volume submitted, results may be compromised Radha Stokes MD LAB MICROBIOLOGY - GENERAL BENNETT NAYAK Final Result [facility] [address] [place] [address] * VAS US Venous Duplex Upper Extremity [...] Mario MD on 01/19/2025 3:51 PM us Radha Stokes MD CV VASCULAR PROCEDURES Final Re sult * Lactic acid, venous (01/17/2025 3:42 PM EDT) Only the most recent of3 resultswithin the time period is included. [facility] Lactate, Venous, Whole Blood 1.3 0.5 - 2.2 mmol/L LAB HEMATOLOGY METHOD 01/17/2025 4:11 PM EDT [facility] Blood Venous blood specimen / Unknown Venipuncture / Unknown 01/17/2025 3:42 PM EDT 01/17/2025 4:07 PM EDT Radha Stokes MD LAB BLOOD ORDERABLES Final Resu lt [facility] [address] [place] [address] * (ABNORMAL) BMP (01/17/2025 3:42 PM EDT) Only the most recent of16 resultswithin the time period is included. [facility] Glucose, Plasma 115(H) 74 - 99 mg/dL 01/17/2025 4:20 PM EDT [facility] BUN, Plasma 16 8 - 23 mg/dL 01/17/2025 4:20 PM EDT [facility] Creatinine, Plasma 0.99 0.60 - 1.10 mg/dL 01/17/2025 4:20 PM EDT [facility] BUN/Creatinine Ratio 16 01/17/2025 4:20 PM EDT [facility] Sodium, Plasma 141 136 - 145 mmol/L 01/17/2025 4:20 PM EDT [facility] Potassium, Plasma 4.1 3.6 - 4.9 mmol/L 01/17/2025 4:20 PM EDT [facility] Chloride, Plasma 114(H) 97 - 107 mmol/L 01/17/2025 4:20 PM EDT [facility] CO2, Plasma 14(L) 22 - 29 mmol/L 01/17/2025 4:20 PM EDT [facility] Anion Gap 13 6 - 16 mmol/L 01/17/2025 4:20 PM EDT [facility] Total Calcium, Plasma 8.8(L) 8.9 - 10.2 mg/dL 01/17/2025 4:20 PM EDT [facility] eGFRcr 63.8 mL/min/1.7 3m*2 01/17/2025 4:20 PM EDT [facility] Comment:Reported eGFRcr in m L/min/1.73m2 is based the CKD-EPI 2020 equation that does not use a race coefficient. Blood Venous blood specimen / Unknown Venipuncture / Unknown 01/17/2025 3:42 PM EDT 01/17/2025 3:44 PM EDT us Radha Stokes MD LAB BLOOD ORDERABLES Final Resu lt [facility] [address] [place] [address] * XR Chest 1 View (01/04/2025 10:36 PM EDT) Only the most recent of6 [...] Robbie Howard MD on 01/04/2025 10:52 PM Brionna Roberts MD IMG XR PROCEDURES Final Resul t * (ABNORMAL) PT-INR (01/04/2025 8:02 PM EDT) Only the most recent of5 resultswithin the time period is included. [facility] Prothrombin Time 25.5(H) 12.0 - 14.3 sec 01/04/2025 8:17 PM EDT [facility] INR 2.3(H) 0.9 - 1.1 01/04/2025 8:[address] [facility] Blood Venous blood specimen / Unknown Venipuncture / Unknown 01/04/2025 8:02 PM EDT 01/04/2025 8:03 PM EDT Narrative [facility] - 01/04/2025 8:17 PM EDT [...] of recurrent MD INR 2.5 to 3.5 us Nisha Choudhury LAB BLOOD ORDERABLES Final Resul t [facility] [address] [place] [address] * (ABNORMAL) POCT glucose meter (12/22/2024 12:43 PM EDT) Only the most recent of88 resultswithin the time period is included. [facility] POCT Glucose 189(H) 74 - 99 mg/dL 12/22/2024 12:45 PM EDT [facility] Comment:Accuracy of a glucos e result [...] 12/22/2024 12:45 PM EDT [facility] [place] ID Marciano Mai 12/22/2024 12:45 PM EDT [facility] Device ID [id number] 12/22/2024 12:45 PM EDT HEALTHCARE LAB Specimen Type POC Capillary 12/22/2024 12:45 PM EDT [facility] Blood Capillary blood specimen / Unknown 12/22/2024 12:43 PM EDT 12/22/2024 12:45 PM EDT Yosi Richmond MD LAB POINT OF CARE T EST DOCKED DEVICE UNSOLICITED RESULTS Final Result Performing Organization Address [facility] Co de Phone Number [facility] [address] [place] [address] * Anti Xa Level by Unfractionated Heparin - Heparin Drip Titration (12/21/2024 7:30 AM EDT) Only the most recent of8 resultswithin the time period is included. Anti Xa Level Unfractionated Heparin 0.56 <1.00 IU/mL LAB COAGULATION METHOD 12/21/2024 8:08 AM EDT [facility] Blood Venous blood specimen / Unknown Venipuncture / Unknown 12/21/2024 7:30 AM EDT 12/21/2024 7:38 AM EDT Narrative [facility] - 12/21/2024 8:08 AM EDT Therapeutic Range: UFH Full Dose and ACS/MD protocols*: 0.30 - 0.70 IU/mL UFH Low Dose protocol*: 0.25 - 0.50 IU/mL UFH prophylaxis: Not established Deandre Cabrera MD LAB BLOOD ORDERABLES Final Re sult Performing Organization Address [facility] Co de Phone Number [facility] [address] [place] [address] * Phosphorus, Plasma (12/20/2024 2:20 AM EDT) Only the most recent of7 resultswithin the time period is included. Phosphorus, Plasma 3.3 2.5 - 4.5 mg/dL 12/20/2024 3:00 AM EDT [facility] Blood Venous blood specimen / Unknown Venipuncture / Unknown 12/20/2024 2:20 AM EDT 12/20/2024 2:31 AM EDT Lisa Lloyd DO LAB BLOOD ORDERABLES Final Resu lt Performing Organization Address City/[facility]/ZIP Co de Phone Number [facility] [address] [place] [address] * (ABNORMAL) N-Terminal Probnp (12/19/2024 12:25 AM EDT) Only the most recent of3 resultswithin the time period is included. N-Terminal, PROBNP, Plasma 2,653(H) 0 - 899 pg/mL 12/19/2024 1:24 AM EDT [facility] Blood Venous blood specimen / Unknown Venipuncture / Unknown 12/19/2024 12:25 AM EDT 12/19/2024 12:45 AM EDT Lisa Lloyd DO LAB BLOOD ORDERABLES Final Resu lt Performing Organization Address City/[facility] Co de Phone Number [facility] [address] [place] [address] * PICC DOUBLE LUMEN (SMARTFORM LINK) (12/18/2024 11:40 PM EDT) Narrative Brian Dai RN - 12/18/2024 11:40 PM EDT Brian Dai RN 12/19/2024 1:05 AM Insert PICC line Performed by: Brian Dai RN Authorized by: Lisa Lloyd DO [facility] Protocol: Verbal consent obtained?: Yes Written consent [...] Left Location (Adult): Basilic vein (Largest vein, [id number] ratio 18%.) Site selection rationale: Infiltration from PIV in RUE. Patient position: Supine Catheter Lot #: [id number] Catheter echo technician: Bard Power PICC Provena Catheter with Solo [...] okay to use order will be placed. [place] limb precaution armband placed on left wrist for PICC precautions while PICC is in place (No sticks/BP's). Green alcohol caps placed on ends of each lumen hub/heplock. VAT consult completed. us Lisa Lloyd DO IV THERAPY ORDERABLES Edited Re sult - Final * Transfuse RBC (12/18/2024 3:42 PM EDT) Only the most recent of6 resultswithin the time period is included. Lisa Lloyd DO BLOOD TRANSFUSION ORDERABLES Fi nal Result * PERIPHERAL IV (SMARTFORM LINK) (12/18/2024 2:20 PM EDT) Only the most recent of4 resultswithin the time period is included. Narrative [...] of5 resultswithin the time period is included. [facility] Signature Product Code [id number] BLOO D BANK Dispense Status Transfused BLOOD BANK Blood Expiration Date [id number] BLOOD BANK Unit Number [id number] B LOOD BANK Product Blood Type 5100 BLOOD BANK Blood Type O+ BLOOD BANK Crossmatch Compatible BLOOD BANK Other Lisa Lenka Lloyd BLOOD BANK PRODUCT ORDERABLES F inal Result BLOOD BANK [address] [place] [address], [place] * (ABNORMAL) Hemoglobin and Hematocrit, Blood (12/17/2024 9:59 PM EDT) Only the most recent of4 resultswithin the time period is included. HGB 6.9(L) 11.2 - 15.7 g/dL LAB HEMATOLOGY METHOD 12/17/2024 9:59 PM EDT [facility] HCT 22.2(L) 34.0 - 45.0 % LAB HEMATOLOGY METHOD 12/17/2024 9:59 PM EDT [facility] Blood Venous blood specimen / Unknown 12/17/2024 9:51 PM EDT Lisa Lloyd DO LAB BLOOD ORDERABLES Final Resu lt Performing Organization Address City/[facility]/ZIP Co de Phone Number [facility] [address] [place] [address] * Type and Screen (12/17/2024 3:22 PM EDT) Only the most recent of5 resultswithin the time period is included. Pathologist [facility] ABO/Rh O Positive 12/17/2024 12:01 AM EDT BLOOD BANK Antibody Screen Negative 12/17/2024 12:01 AM EDT BLOOD BANK Specimen Expiration 12/20/2024 23:59 12/17/2024 12:01 AM EDT BLOOD BANK Blood Venous blood specimen / Unknown Venipuncture / Unknown 12/17/2024 3:22 PM EDT 12/17/2024 3:39 PM EDT Abhilash Bangura MD LAB BLOOD BANK TEST ORDERABLES Final Result Performing Organization Address City/[facility]/ZIP Co de Phone Number BLOOD BANK [address] [place] [address], [place] * Wilbur auris Surveillance by PCR (12/17/2024 4:24 AM EDT) Only the most recent of3 resultswithin the time period is included. Pathologist [facility] Wilbur auris PCR Result Not Detected Not Detected 12/19/2024 5:43 AM EDT [facility] Swab (Axilla and Groin) Non-blood Collection / Unknown 12/17/2024 4:24 AM EDT 12/17/2024 5:09 AM EDT Narrative [facility] - 12/19/2024 5:43 AM EDT This PCR assay was developed and its performance characteristics determined by [facility] as appropriate for clinical purposes. This assay has not been cleared or approved by the FDA, but is performed in a CLIA regulated laboratory that is qualified to perform high-complexity testing. Ry Stewart MD LAB MICROBIOLOGY - GENERAL ORDER SOLOMON Final Result Performing Organization Address City/[facility]/ZIP Co de Phone Number [facility] [address] [place] [address] * Fungal Culture, Tissue and GARO (12/16/2024 1:59 PM EDT) Culture Reading Mycological 4 Weeks Fungal culture overgrown with bacteria 12/30/2024 6:53 AM EDT [facility] GARO No fungal elements seen 12/30/2024 6:53 AM EDT [facility] Bone Topography unknown / Unknown 12/16/2024 1:59 PM EDT 12/16/2024 3:02 PM EDT Comment:Pre-op diagnosis: Incisional infection [T81.49XA] us Abhilash Bangura MD LAB MICROBIOLOGY - GENERAL ORD ERABLES Final Result Performing Organization Address [facility] Co de Phone Number [facility] [address] [place] [address] * (ABNORMAL) Bone Culture and Gram Stain (12/16/2024 1:59 PM EDT) Culture Light Growth 12/21/2024 3:10 PM EDT [facility] Culture Pseudomonas aeruginosa MDR, MIRROR SILVERER(AA) DONAVAN 12/21/2024 3:10 PM EDT [facility] Comment: This isolate has been identified using the FDA Approved MALDI Vibryntyper CA System The organism value for this result has been updated. These results have been appended to the previously preliminary verified report. Edited result: Previously reported as Pseudomonas aeruginosa on 12/20/2024 at 0807 EDT. This is a corrected result. Previous organism was Pseudomonas aeruginosa MDR, MENTAL HEALTH DIRECTOR on 12/20/2024 at 1256 EDT. Gram Stain Result Moderate Polymorphonuclear leukocytes 12/21/2024 3:10 PM EDT [facility] Gram Stain Result No organisms seen 12/21/2024 3:10 PM EDT [facility] Bone Topography unknown / Unknown 12/16/2024 1:59 PM EDT 12/16/2024 3:02 PM EDT Comment:Pre-op diagnosis: Incisional infection [T81.49XA] Narrative Organism Antibiotic Method Susceptibility Pseudomonas aeruginosa MDR, MIRROR SILVERER Aztreonam DONAVAN 8 ug/ml: Susceptible Pseudomonas aeruginosa MDR, MIRROR SILVERER Cefepime DONAVAN 8 ug/ml: Susceptible Pseudomonas aeruginosa MDR, MIRROR SILVERER Levofloxacin DONAVAN >4 ug/ml: Resistant Pseudomonas aeruginosa MDR, MIRROR SILVERER Meropenem DONAVAN >8 ug/ml: Resistant Pseudomonas aeruginosa MDR, MIRROR SILVERER Tobramycin DONAVAN >8 ug/ml: Resistant Pseudomonas aeruginosa MDR, MIRROR SILVERER Piperacillin/Tazobactam ETEST 96.0 ug/ml: Resistant Comment:The previously repor samaria component Piperacillin/Tazobactam is no longer being reported. Abhilash Bangura MD LAB MICROBIOLOGY - GENERAL ORD ERABLES Edited Result - Final [facility] [address] [place] [address] * AFB Culture, Non Respiratory Source and Acid Fast Stain (12/16/2024 1:59 PM EDT) Only the most recent of2 resultswithin the time period is included. AFB Culture No Mycobacterial Growth at 6 Weeks 01/29/2025 4:48 PM EDT [facility] Acid Fast Stain No acid fast bacilli seen 01/29/2025 4:48 PM EDT [facility] Bone Topography unknown / Unknown 12/16/2024 1:59 PM EDT 12/16/2024 3:02 PM EDT Comment:Pre-op diagnosis: Incisional infection [T81.49XA] Abhilash Bangura MD LAB MICROBIOLOGY - GENERAL ORD ERABLES Final Result Performing Organization Address City/[facility]/ZIP Co de Phone Number [facility] [address] [place] [address] * Anaerobic Culture (12/16/2024 1:59 PM EDT) Only the most recent of2 resultswithin the time period is included. Culture No anaerobes isolated 12/20/2024 2:47 PM EDT [facility] Bone Topography unknown / Unknown 12/16/2024 1:59 PM EDT 12/16/2024 3:02 PM EDT Comment:Pre-op diagnosis: Incisional infection [T81.49XA] Abhilash Bangura MD LAB MICROBIOLOGY - GENERAL ORD ERABLES Final Result Performing Organization Address [facility] Co de Phone Number [facility] [address] [place] [address] * (ABNORMAL) Routine Culture and Gram Stain (12/16/2024 1:58 PM EDT) Culture Light Growth 12/21/2024 3:10 PM EDT [facility] Culture Pseudomonas aeruginosa MDR, MIRROR SILVERER(AA) DONAVAN 12/21/2024 3:10 PM EDT [facility] Comment: This isolate has been identified using the FDA Approved Gravieyper CA System The organism value for this result has been updated. These results have been appended to the previously preliminary verified report. Edited result: Previously reported as Pseudomonas aeruginosa on 12/20/2024 at 0807 EDT. This is a corrected result. Previous organism was Pseudomonas aeruginosa MIRROR SILVERER on 12/21/2024 at 1131 EDT. Gram Stain Result Moderate Polymorphonuclear leukocytes 12/21/2024 3:10 PM EDT [facility] Gram Stain Result No organisms seen 12/21/2024 3:10 PM EDT [facility] Swab Topography unknown / Unknown 12/16/2024 1:58 PM EDT 12/16/2024 3:01 PM EDT Comment:Pre-op diagnosis: Incisional infection [T81.49XA] Narrative Organism Antibiotic Method Susceptibility Pseudomonas aeruginosa MDR, MIRROR SILVERER Aztreonam DONAVAN 8 ug/ml: Susceptible Pseudomonas aeruginosa MDR, MIRROR SILVERER Cefepime DONAVAN 8 ug/ml: Susceptible Pseudomonas aeruginosa MDR, MIRROR SILVERER Levofloxacin DONAVAN >4 ug/ml: Resistant Pseudomonas aeruginosa MDR, MIRROR SILVERER Meropenem DONAVAN >8 ug/ml: Resistant Pseudomonas aeruginosa MDR, MIRROR SILVERER Tobramycin DONAVAN >8 ug/ml: Resistant Pseudomonas aeruginosa MDR, MIRROR SILVERER Piperacillin/Tazobactam ETEST 96.0 ug/ml: Resistant Comment:The previously repor samaria component Piperacillin/Tazobactam is no longer being reported. Abhilash Bangura MD LAB MICROBIOLOGY - GENERAL ORD ERABLES Edited Result - Final Performing Organization Address [facility] [place] [address] * Fungal Culture, Routine (12/16/2024 1:58 PM EDT) Culture No Fungal Growth at 1 Week 12/23/2024 6:39 AM EDT [facility] Swab Topography unknown / Unknown 12/16/2024 1:58 PM EDT 12/16/2024 3:01 PM EDT Comment:Pre-op diagnosis: Incisional infection [T81.49XA] Abhilash Bangura MD LAB MICROBIOLOGY - GENERAL ORD ERABLES Final Result Performing Organization Address [facility] [place] [address] * MO AN ELECTIVE ENDOTRACHEAL AIRWAY, PB ANESTHESIA PLACEHOLDER [...] 8:47 AM EDT) Only the most recent of2 resultswithin the time period is included. Culture Smear contains >=10 squamous epithelial cells per low power field, suggestive of poor quality. Culture not performed. A credit has been issued. 12/16/2024 9:50 AM EDT [facility] Gram Stain Result Greater than 10 Epithelial cells/LPF(A) 12/16/2024 9:50 AM EDT [facility] Gram Stain Result Fewer than 25 WBC/LPF(A) 12/16/2024 9:50 AM EDT [facility] Gram Stain Result Few Gram positive cocci in clusters(A) 12/16/2024 9:50 AM EDT [facility] Gram Stain Result Rare Gram positive cocci in pairs and chains(A) 12/16/2024 9:50 AM EDT [facility] Gram Stain Result Few Gram negative rods(A) 12/16/2024 9:50 AM EDT [facility] Gram Stain Result Rare Budding yeast(A) 12/16/2024 9:50 AM EDT [facility] Sputum Coughed sputum specimen / Unknown Non-blood Collection / Unknown 12/16/2024 8:47 AM EDT 12/16/2024 9:09 AM EDT us Gordy Calderón APRN, DNP LAB MICROBIOLOGY - GENERAL ORDERABLES Final Result [facility] [address] [place] [address] * Streptococcus pneumoniae and Legionella Urinary Antigen (12/16/2024 8:39 AM EDT) Only the most recent of2 resultswithin the time period is included. Legionella pneumophila serogroup 1 Antigen Result (Urine) Negative Negative 12/16/2024 10:35 AM EDT [facility] Streptococcus pneumoniae Antigen Result (Urine) Negative Negative 12/16/2024 10:35 AM EDT [facility] Urine Urine specimen obtained by clean catch procedure / Unknown Non-blood Collection / Unknown 12/16/2024 8:39 AM EDT 12/16/2024 9:09 AM EDT Gordy Calderón APRN, DNP LAB MICROBIOLOGY - GENERAL ORDERABLES Final Result [facility] [address] [place] [address] * Histoplasma Galactomannan EIA, Urine (SO) (12/16/2024 8:39 AM EDT) Histoplasma Galactomannan EIA, Urine <0.3 <0.3 ng/mL 12/17/2024 5:07 PM EDT [facility] ([facility]) Comment: This test is used for the [...] Histoplasma Galactomannan EIA is a product of [employer] and is labeled for in-vitro diagnostic use. This test has been registered with the FDA and is considered safe and effective for the detection of Histoplasma Galactomannan. Testing Performed at: [facility] [address] [place] [address], [facility] [address] [place] [address] Flume Tender: Anatoly Turk, PhD [facility] ([facility]) CLIA # [id number] FLAG Interpretation: A = Abnormal, H = High, L = Low Urine Urine specimen obtained by clean catch procedure / Unknown Non-blood Collection / Unknown 12/16/2024 8:39 AM EDT 12/16/2024 9:04 AM EDT Narrative ALLIE FINK) - 12/17/2024 5:07 PM EDT Release to patient in [facility]->Immediate us Gordy Calderón APRN, [facility] LAB BLOOD AND FLUID ORD Final Result Performing Organization Address City/[facility] Co de Phone Number ALLIE FINK) * APTT (12/16/2024 8:24 AM EDT) Only the most recent of3 resultswithin the time period is included. aPTT 26 25 - 35 sec 12/16/2024 8:43 AM EDT [facility] Blood Venous blood specimen / Unknown Venipuncture / Unknown 12/16/2024 8:24 AM EDT 12/16/2024 8:28 AM EDT Abhilash Bangura MD LAB BLOOD ORDERABLES Final Res ult [facility] [address] [place] [address] * Multi Drug Resistance Test (12/16/2024 7:50 AM EDT) Only the most recent of3 resultswithin the time period is included. Culture No growth at day 1 12/17/2024 9:52 AM EDT [facility] Swab (Nares and Carole Rectal) Non-blood Collection / Unknown 12/16/2024 7:50 AM EDT 12/16/2024 8:45 AM EDT Narrative [facility] - 12/17/2024 9:52 AM EDT This test was developed and its performance characteristics determined by the [facility]. Although the media is FDA-approved, it is not FDA-approved for all specimen types submitted. The FDA has determined that such clearance or approval is not necessary. This test is used for surveillance purposes. It should not be regarded as investigational or for research. The [facility] is certified under the Clinical Laboratory Improvement Amendments of 1988 (CLIA-88) as qualified to perform high complexity clinical laboratory testing. Gordy Calderón APRN, DNP LAB MICROBIOLOGY - GENERAL ORDERABLES Final Result Performing Organization Address [facility] Co de Phone Number [facility] [address] [place] [address] * Methicillin Resistant Staphylococcus aureus (MRSA) by PCR (12/16/2024 7:50 AM EDT) Only the most recent of2 resultswithin the time period is included. Methicillin Resistant Staphylococcus aureus (MRSA) by PCR Not Detected Not Detected 12/16/2024 10:[address] [facility] Swab Both anterior nares / Unknown Non-blood Collection / Unknown 12/16/2024 7:50 AM EDT 12/16/2024 8:46 AM EDT Narrative [facility] - 12/16/2024 10:01 AM [...] GENERAL ORDERABLES Final Result Performing Organization Address [facility] [place]/[facility] Co de Phone Number [facility] [address] [place] [address] * (ABNORMAL) Procalcitonin (12/16/2024 5:52 AM EDT) Only the most recent of3 resultswithin the time period is included. Procalcitonin, Plasma 0.15(H) <0.09 ng/mL 12/16/2024 7:10 AM EDT [facility] Blood Venous blood specimen / Unknown Venipuncture / Unknown 12/16/2024 5:52 AM EDT 12/16/2024 5:55 AM EDT Narrative [facility] - 12/16/2024 7:10 AM [...] predict 28 day mortality risk. Please consult [email or web address] for more information. Test performed at [facility]. us Gordy Calderón APRN, DNP LAB BLOOD ORDERAB LES Final Result Performing Organization Address [facility]/ZIP Co de Phone Number [facility] [address] [place] [address] * (ABNORMAL) Troponin T, High Sensitivity, 2 Hour, Plasma (12/16/2024 1:39 AM EDT) Only the most recent of2 resultswithin the time period is included. Troponin T, High Sensitivity, 2 Hour 28(H) <14 ng/L 12/16/2024 2:08 AM EDT [facility] Troponin Delta 1 <10 ng/L 12/16/2024 2:08 AM EDT [facility] Troponin Delta Interpretation Not Significant 12/16/2024 2:08 AM EDT [facility] Comment:Not Significant. No acute change in troponin observed between the baseline and 2 hour samples. Blood Venous blood specimen / Unknown Venipuncture / Unknown 12/16/2024 1:39 AM EDT 12/16/2024 1:40 AM EDT us Balwinder Lock MD LAB BLOOD ORDERABLES Final Resul t [facility] [address] [place] [address] * CT Angio Pulmonary Embolism (12/16/2024 1:30 [...] on 12/16/2024 2:02 AM Deandre Cabrera MD IM CT PROCEDURES Final Resul t * SARS CoV-2/COVID-19 by PCR - Rapid (12/15/2024 11:19 PM EDT) SARS CoV-2/COVID-1 9 RNA PCR Result Not Detected Not Detected 12/16/2024 1:22 AM EDT [facility] Swab Nasopharyngeal structure / Unknown Non-blood Collection / Unknown 12/15/2024 11:19 PM EDT 12/16/2024 12:39 AM EDT Narrative [facility] - 12/16/2024 1:22 AM [...] MICROBIOLOGY - GENERAL ORDER SOLOMON Final Result [facility] [address] [place] [address] * Nasopharyngeal Respiratory Panel (12/15/2024 11:19 PM EDT) Only the most recent of2 resultswithin the time period is included. Nasopharyngeal Respiratory PCR Interpretation Not Detected for all analytes Not Detected for all analytes 12/16/2024 2:[address] [facility] Swab Nasopharyngeal structure / Unknown Non-blood Collection / Unknown 12/15/2024 11:19 PM EDT 12/16/2024 12:39 AM EDT Narrative [facility] - 12/16/2024 2:33 AM [...] regarded as investigational or for research. The [facility] is certified under the Clinical Laboratory Improvement Amendments of 1988 (CLIA-88) as qualified to perform high complexity clinical laboratory testing. us Balwinder Lock MD LAB MICROBIOLOGY - GENERAL ORDER SOLOMON Final Result Performing Organization Address City/[facility] [place]/[place] [address] * (ABNORMAL) Troponin now and 120 min (12/15/2024 11:18 PM EDT) Only the most recent of2 resultswithin the time period is included. Pathologist [facility] Troponin T, High Sensitivity, 0 Hour 29(H) <14 ng/L 12/15/2024 11:55 PM EDT [facility] Blood Venous blood specimen / Unknown Venipuncture / Unknown 12/15/2024 11:18 PM EDT 12/15/2024 11:23 PM EDT us Balwinder Lock MD LAB BLOOD ORDERABLES Final Resul t Performing Organization Address [facility] [place]/ZIP Co de Phone Number [facility] [address] [place] [address] * (ABNORMAL) Lipase (12/15/2024 11:18 PM EDT) [facility] Lipase, Plasma 15(L) 19 - 63 U/L 12/15/2024 11:55 PM EDT [facility] Blood Venous blood specimen / Unknown Venipuncture / Unknown 12/15/2024 11:18 PM EDT 12/15/2024 11:23 PM EDT us Balwinder Lock MD LAB BLOOD ORDERABLES Final Resul t Performing Organization Address City/[facility] [place]/ZIP Co de Phone Number [facility] [address] [place] [id number] * (ABNORMAL) Blood gas panel, venous (12/15/2024 11:18 PM EDT) Only the most recent of4 resultswithin the time period is included. Pathologist [facility] pH, Venous 7.39 7.32 - 7.43 LAB HEMATOLOGY METHOD 12/15/2024 11:36 PM EDT [facility] pCO2, Venous 54(H) 37 - 52 mmHg LAB HEMATOLOGY METHOD 12/15/2024 11:36 PM EDT [facility] pO2, Venous 39 25 - 40 mmHg LAB HEMATOLOGY METHOD 12/15/2024 11:36 PM EDT [facility] SO2, Measured, Venous 68 65 - 80 % LAB HEMATOLOGY METHOD 12/15/2024 11:36 PM EDT [facility] Base Excess, Venous 6.5(H) -2.0 - 3.0 mmol/L LAB HEMATOLOGY METHOD 12/15/2024 11:36 PM EDT [facility] Bicarbonate, Calculated, Venous 32(H) 22 - 26 mmol/L LAB HEMATOLOGY METHOD 12/15/2024 11:36 PM EDT [facility] Hematocrit, Whole Blood 23.4(L) 34.0 - 45.0 % LAB HEMATOLOGY METHOD 12/15/2024 11:36 PM EDT [facility] Sodium, Whole Blood 142 136 - 145 mmol/L LAB HEMATOLOGY METHOD 12/15/2024 11:36 PM EDT [facility] Potassium, Whole Blood 3.8 3.6 - 4.9 mmol/L LAB HEMATOLOGY METHOD 12/15/2024 11:36 PM EDT [facility] Chloride, Whole Blood 100 97 - 107 mmol/L LAB HEMATOLOGY METHOD 12/15/2024 11:36 PM EDT [facility] Glucose, Whole Blood 126(H) 74 - 99 mg/dL LAB HEMATOLOGY METHOD 12/15/2024 11:36 PM EDT [facility] Lactate, Venous, Whole Blood 0.8 0.5 - 2.2 mmol/L LAB HEMATOLOGY METHOD 12/15/2024 11:36 PM EDT [facility] Ionized Calcium, Whole Blood 4.7 4.6 - 5.1 mg/dL LAB HEMATOLOGY METHOD 12/15/2024 11:36 PM EDT [facility] Blood Venous blood specimen / Unknown Venipuncture / Unknown 12/15/2024 11:18 PM EDT 12/15/2024 11:34 PM EDT us Balwinder Lock MD LAB BLOOD ORDERABLES Final Resul t Performing Organization Address City/[facility] [place]/ZIP Co de Phone Number [facility] [address] [place] [address] * Vancomycin, random (12/09/2024 3:52 AM EDT) Only the most recent of5 resultswithin the time period is included. Vancomycin, Random, Plasma 15.7 ug/mL 12/09/2024 4:41 AM EDT [facility] Blood Venous blood specimen / Unknown Venipuncture / Unknown 12/09/2024 3:52 AM EDT 12/09/2024 4:02 AM EDT us Bernice Eckert MD LAB BLOOD ORDERABLES Final Resu lt Performing Organization Address [facility] [place]/[facility] Co de Phone Number [facility] [address] [place] [address] * ECHO, ADULT TRANSTHORACIC COMPLETE W/ STRAIN (12/08/2024 8:59 AM EDT) BSA 2.23 m2 SOL ISCV Height 170.2 SOL ISCV Weight 113.9 SOL ISCV LV V1 VTI 25.8 cm SOL ISCV MV E Vmax 108.0 cm/s SOL ISCV MV A Vmax 118.0 cm/s SOL ISCV MV E/A 0.9 cm/s SOL ISCV TR Vmax 272.0 cm/s OSL ISCV PA V2 VTI 24.5 cm SOL [...] is no recent study available for direct [id number] comparison. Left Ventricle The left ventricle is [...] is no recent study available for direct ucon-vj-nces comparison. Wall Scoring Baseline Score Index: 1.00 The left ventricular wall motion is normal. us Bernice Eckert MD CV ECHO PROCEDURES Final Result * Fungal Culture, Cerebrospinal Fluid (CSF) and Emily Ink (12/06/2024 6:48 PM EDT) Culture No Fungal Growth at 3 Weeks 12/27/2024 5:53 AM EDT [facility] Emily Ink No fungal elements seen 12/27/2024 5:53 AM EDT [facility] Cerebrospinal Fluid Lumbar puncture / Unknown Non-blood Collection / Unknown 12/06/2024 6:48 PM EDT 12/06/2024 6:48 PM EDT Noemí Leigh MD LAB MICROBIOLOGY - GENERAL ORD ERABLES Final Result Performing Organization Address City/[facility] [place]/ZIP Co de Phone Number [facility] [address] [place] [address] * Freeze and Hold (12/06/2024 6:48 PM EDT) Pathologist [facility] Freeze and Hold Result The specimen has been received and verified. All specimens are held 30 days before discarding. Time of verification: 214001/06/2025 5:36 AM EDT [facility] Estimated Volume of Specimen 0.5-1.0 mL 01/06/2025 5:[address] [facility] Cerebrospinal Fluid Lumbar puncture / Unknown Non-blood Collection / Unknown 12/06/2024 6:48 PM EDT 12/06/2024 6:48 PM EDT us Noemí Leigh MD LAB MICROBIOLOGY - GENERAL ORD ERABLES Final Result [facility] [address] [place] [address] * Cryptococcal Antigen, CSF (12/06/2024 6:48 PM EDT) Cryptococcal Antigen Result (CSF) Negative Negative 12/07/2024 5:55 AM EDT [facility] Cerebrospinal Fluid Lumbar puncture / Unknown Non-blood Collection / Unknown 12/06/2024 6:48 PM EDT 12/06/2024 6:48 PM EDT Noemí Leigh MD LAB MICROBIOLOGY - GENERAL ORD ERABLES Final Result Performing Organization Address [facility] [place]/ZIP Co de Phone Number [facility] [address] [place] [address] * Herpes Simplex Virus (HSV) by PCR (12/06/2024 6:48 PM EDT) Herpes Simplex Virus 1 (HSV-1) PCR Result Not Detected Not Detected 12/07/2024 8:[address] [facility] Herpes Simplex Virus 2 (HSV-2) PCR Result Not Detected Not Detected 12/07/2024 8:[address] [facility] Cerebrospinal Fluid Lumbar puncture / Unknown Non-blood Collection / Unknown 12/06/2024 6:48 PM EDT 12/06/2024 6:48 PM EDT Narrative [facility] - 12/07/2024 8:54 AM [...] ORD ERABLES Final Result Performing Organization Address City/[facility] [place]/ZIP Co de Phone Number [facility] [address] [place] [address] * Cerebrospinal Fluid (CSF) Culture and Gram Stain (12/06/2024 6:48 PM EDT) Culture No growth at day 4 2024 2:[address] [facility] Gram Stain Rare Polymorphonuclear leukocytes 12/09/2024 2:[address] [facility] Gram Stain No organisms seen 025 2:[address] [facility] Cerebrospinal Fluid Lumbar puncture / Unknown Non-blood Collection / Unknown 12/06/2024 6:48 PM EDT 12/06/2024 6:48 PM EDT us Noemí Leigh MD LAB MICROBIOLOGY - GENERAL ORD ERABLES Final Result [facility] [address] [place] [address] * IR Lumbar Puncture (12/06/2024 4:24 PM [...] PM COMPARISON: MR head reviewed from 12/01/2024. AIR CONDITIONER INSTALLER HELPER: Lisa Romano PA-C SECONDARY CAST IRON DIPPER: RT Scottie CONTRAST: 0 cc MEDICATIONS: 1% [...] PM COMPARISON: MR head reviewed from 12/01/2024. AIR CONDITIONER INSTALLER HELPER: Lisa Romano PA-C SECONDARY CAST IRON DIPPER: RT Scottie CONTRAST: 0 cc MEDICATIONS: 1% [...] FLUIDS AND STOOLS BENNETT NAYAK Final Result 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 A resident was involved in the service. I attest I examined the relevant preparations for the specimens and confirmed the diagnosis or interpretation. 12/07/2024 12:00 PM EDT [facility] Pathologist Signature, CSF 12/07/2024 12:00 PM EDT [facility] Comment:Reviewed by: Wilma Courtney MD LAB CP ASR DISCLAIMER Yes 12/07/2024 12:00 PM EDT [facility] Cerebrospinal Fluid Lumbar puncture / Unknown Non-blood Collection / Unknown 12/06/2024 4:21 PM EDT 12/06/2024 6:34 PM EDT Noemí Leigh MD LAB PATHOLOGY ORDERABLES Final Result [facility] [address] [place] [address] * (ABNORMAL) CSF Cell Count w/ Manual Differential (12/06/2024 4:21 PM EDT) Unspun Color, CSF Colorless Colorless LAB HEMATOLOGY METHOD 12/06/2024 10:03 PM EDT [facility] Unspun Clarity, CSF Clear Clear LAB HEMATOLOGY METHOD 12/06/2024 10:03 PM EDT [facility] Spun Color, CSF LAB HEMATOLOGY METHOD 12/06/2024 10:03 PM EDT [facility] Comment:Test Not Indicated Spun Clarity, CSF LAB HEMATOLOGY METHOD 12/06/2024 10:03 PM EDT [facility] Comment:Test Not Indicated Volume CSF 5.0 cc LAB HEMATOLOGY METHOD 12/06/2024 10:03 PM EDT [facility] Tube Number, CSF Tube 4 LAB HEMATOLOGY METHOD 12/06/2024 10:03 PM EDT [facility] Red Blood Cell Count, CSF 7 0 uL uL LAB HEMATOLOGY METHOD 12/06/2024 10:03 PM EDT [facility] Comment:Test performed by ma nual method. Total Nucleated Cell Count, CSF 15(H) 0 - 5 L LAB HEMATOLOGY METHOD 12/06/2024 10:03 PM EDT [facility] Comment:Test performed by ma nual method. Neutrophils %, CSF 1 % LAB HEMATOLOGY METHOD 12/06/2024 10:03 PM EDT [facility] Lymphocytes %, CSF 84 % LAB HEMATOLOGY METHOD 12/06/2024 10:03 PM EDT [facility] Monocytes/Macro phages %, CSF 15 % LAB HEMATOLOGY METHOD 12/06/2024 10:03 PM EDT [facility] Eosinophils %, CSF 0 % LAB HEMATOLOGY METHOD 12/06/2024 10:03 PM EDT [facility] Basophils %, CSF 0 % LAB HEMATOLOGY METHOD 12/06/2024 10:03 PM EDT [facility] Neutrophils Absolute, CSF 0 uL LAB HEMATOLOGY METHOD 12/06/2024 10:03 PM EDT [facility] Lymphocytes Absolute, CSF 13 uL LAB HEMATOLOGY METHOD 12/06/2024 10:03 PM EDT [facility] Monocytes/Macro phages Absolute, CSF 2 uL LAB HEMATOLOGY METHOD 12/06/2024 10:03 PM EDT [facility] Eosinophils Absolute, CSF 0 uL LAB HEMATOLOGY METHOD 12/06/2024 10:03 PM EDT [facility] Basophils Absolute, CSF 0 uL LAB HEMATOLOGY METHOD 12/06/2024 10:03 PM EDT [facility] Comment, CSF None LAB HEMATOLOGY METHOD 12/06/2024 10:03 PM EDT [facility] Comment:This is an appended report. These results have been appended to a previously preliminary verified report. Cerebrospinal Fluid Lumbar puncture / Unknown Non-blood Collection / Unknown 12/06/2024 4:21 PM EDT 12/06/2024 6:34 PM EDT us Noemí Leigh MD LAB BODY FLUIDS AND STOOLS ORD ERABLES Final Result [facility] [address] [place] [address] * Lactate Dehydrogenase Total, Body Fluid (SO) (12/06/2024 4:21 PM EDT) [facility] Lactate Dehydrogenase Total, Body Fluid 33 U/L 12/09/2024 12:02 PM EDT [facility] LDH Fluid Source CSF 12/10/19 12:02 PM EDT [facility] ([facility]) Cerebrospinal Fluid Non-blood Collection / Unknown 12/06/2024 4:21 PM EDT 12/06/2024 6:36 PM EDT Narrative [facility] ([facility]) - 12/09/2024 12:02 PM EDT INTERPRETIVE INFORMATION: Lactate Dehydrogenase Total, Body Fluid For information on body fluid reference ranges and/or interpretive guidance visit [email or web address]/ This test was developed and its performance characteristics determined by [facility]. It has not been cleared or approved by the US Food and Drug Administration. This test was performed in a CLIA certified laboratory and is intended for clinical purposes. Performed By: [facility] [address] [place] [address] Hospital Ward Clerk: Manuel Mas MD, PhD CLIA Number: [id number] Noemí Leigh MD LAB REF LAB BLOOD AND FLUID OR D Final Result Performing Organization Address [facility] Co de Phone Number [facility] [address] [place] [address] * ENTEROVIRUS QUANTITATIVE PCR, CSF (SO) (12/06/2024 4:21 PM EDT) [facility] ENTEROVIRUS PCR CSF Not Detected Not Detected copies/ml 12/08/2024 9:44 PM EDT [facility] ([facility]) Comment: Assay Range: 83 copies/mL to 1.00E+08 [...] developed and its performance characteristics determined by [facility]. It has not been cleared or approved by the U.S. Food and Drug Administration. Results should be used in conjunction with clinical findings, and should not form the sole basis for a diagnosis or treatment decision. Testing Performed at: [facility] [address] [place] [address] Flume Tender: Anatoly Turk, PhD SUNITA (ABB) CLIA # [id number] FLAG Interpretation: A = Abnormal, H = High, L = Low Cerebrospinal Fluid Cerebrospinal fluid specimen / Unknown Non-blood Collection / Unknown 12/06/2024 4:21 PM EDT 12/06/2024 6:36 PM EDT Narrative [facility] ([facility]EX) - 12/08/2024 9:44 PM EDT Release to patient in [facility]->Immediate Noemí Leigh MD LAB BODY FLUIDS AND STOOLS ORD ERABLES Final Result [email or web address]) * Varicella zoster DNA, quantitative (12/06/2024 4:21 PM EDT) Pathologist [facility] VZV qPCR CSF Not Detected Not Detected copies/mL 12/08/2024 9:06 PM EDT [facility] FINK) Comment: Assay Range: 251 copies/mL to 1.00E+08 copies/mL The limit of quantitation (LOQ) is 251 copies/mL. VZV DNA detected below the LOQ will be reported as Detected:<251 copies/mL. This test was developed and its performance characteristics determined by [facility]. It has not been cleared or approved by the U.S. Food and Drug Administration. Results should be used in conjunction with clinical findings, and should not form the sole basis for a diagnosis or treatment decision. Testing Performed at: [facility] [address] [place] [id number] Flume Tender: Anatoly Turk, PhD SUNITA (ABB) CLIA # [id number] FLAG Interpretation: A = Abnormal, H = High, L = Low Cerebrospinal Fluid Cerebrospinal fluid specimen / Unknown Non-blood Collection / Unknown 12/06/2024 4:21 PM EDT 12/06/2024 6:36 PM EDT Narrative [facility] ([facility]) - 12/08/2024 9:06 PM EDT Release to patient in [facility]->Immediate Noemí Leigh MD LAB BODY FLUIDS AND STOOLS ORD ERABLES Final Result [facility]) * CMV DNA, Quantitative, PCR CSF (SO) (12/06/2024 4:21 PM EDT) CMV qPCR CSF Not Detected Not Detected IU/mL 12/08/2024 9:06 PM EDT [facility] ([facility]) Comment: Assay Range: 142 IU/mL to 1.88E+08 IU/mL The limit of quantitation (LOQ) is 142 IU/mL. CMV DNA detected below the LOQ will be reported as Detected:<142 IU/mL. This test was developed and its performance characteristics determined by [facility]. It has not been cleared or approved by the U.S. Food and Drug Administration. Results should be used in conjunction with clinical findings, and should not form the sole basis for a diagnosis or treatment decision. Testing Performed at: [facility] [address] [place] [address], [facility] [address] [place] [address] Flume Tender: Anatoly Turk, PhD SUNITA (ABB) CLIA # [id number] FLAG Interpretation: A = Abnormal, H = High, L = Low Cerebrospinal Fluid Cerebrospinal fluid specimen / Unknown Non-blood Collection / Unknown 12/06/2024 4:21 PM EDT 12/06/2024 6:36 PM EDT Narrative [facility] ([facility]) - 12/08/2024 9:06 PM EDT Release to patient in [facility]->Immediate Noemí Leigh MD LAB BODY FLUIDS AND STOOLS ORD ERABLES Final Result [facility] (ALEX) * West Nile virus, CSF (12/06/2024 4:21 PM EDT) WEST NILE VIRUS AB,IGG,CSF 0.07 <=1.29 IV 12/09/2024 5:05 AM EDT [facility] ([facility]) WEST NILE VIRUS AB,IGM,CSF 0.01 <=0.89 IV 12/09/2024 5:05 AM EDT [facility] ([facility]) Cerebrospinal Fluid Cerebrospinal fluid specimen / Unknown Non-blood Collection / Unknown 12/06/2024 4:21 PM EDT 12/06/2024 6:36 PM EDT Narrative [facility] ([facility]) - 12/09/2024 5:05 AM [...] members of the Flaviviridae family, such as Jones encephalitis virus, show extensive cross-reactivity with West [...] developed and its performance characteristics determined by [facility]. It has not been cleared or approved [...] members of the Flaviviridae family, such as Jones encephalitis virus, show extensive cross-reactivity with West [...] developed and its performance characteristics determined by [facility]. It has not been cleared or approved by the US Food and Drug Administration. This test was performed in a CLIA certified laboratory and is intended for clinical purposes. Performed By: [facility] [address] [place], [place] [id number] Hospital Ward Clerk: Manuel Mas MD, PhD CLIA Number: [id number] us Noemí Leigh MD LAB BLOOD ORDERABLES Final Res ult [place] [facility] ([facility]) [address] [place] [address] * (ABNORMAL) Protein, CSF (12/06/2024 4:21 PM EDT) Total Protein, CSF 82(H) 15 - 45 mg/dL 12/06/2024 9:[address] [facility] Cerebrospinal Fluid Lumbar puncture / Unknown Non-blood Collection / Unknown 12/06/2024 4:21 PM EDT 12/06/2024 6:36 PM EDT Narrative [facility] - 12/06/2024 9:49 PM EDT Blood, when present in CSF, invalidates protein. Interpret results in the context of the patient's condition and other laboratory results. us Noemí Leigh MD LAB BODY FLUIDS AND STOOLS ORD ERABLES Final Result Performing Organization Address [facility] Co de Phone Number [facility] [address] [place] [address] * (ABNORMAL) Glucose, CSF (12/06/2024 4:21 PM EDT) Glucose, CSF 86(H) 41 - 70 mg/dL 12/06/2024 9:49 PM EDT [facility] Cerebrospinal Fluid Lumbar puncture / Unknown Non-blood Collection / Unknown 12/06/2024 4:21 PM EDT 12/06/2024 6:36 PM EDT Narrative [facility] - 12/06/2024 9:49 PM EDT CSF glucose values should be approximately 60 % of the plasma values and must always be compared with concurrently measured plasma values for adequate clinical interpretation. No reference ranges have been established for pediatric patients. us Noemí Leigh MD LAB BODY FLUIDS AND STOOLS ORD ERABLES Final Result Performing Organization Address [facility] [place] [address] * Non-Gynecologic Cytology (12/06/2024 4:21 PM EDT) Case Report Cytology Case: [id number] Authorizing Provider: Bernice Eckert MD Collected: 12/06/2024 1621 Ordering Location: [facility] Inpatient Received: 12/07/2024 0842 Pathologist: Veronique Salas MD Specimen: Lumbar Puncture, CEREBROSPINAL FLUID 12/07/2024 5:[address] [facility] Final Diagnosis A. CEREBROSPINAL FLUID - NO EVIDENCE OF MALIGNANCY - CHRONIC INFLAMMATORY CELLS WITH PREDOMINANTLY LYMPHOCYTES 12/07/2024 5:19 PM EDT [facility] at 1719 EDT Clinical History angela, fever 12/07/2024 5:[address] [facility] Previous Cancer Yes 12/07/2024 5:[address] [facility] Previous Cancer Primary Site Lung Cancer 12/07/2024 5:[address] [facility] Gross Description A. CEREBROSPINAL FLUID 2 ml's of clear fluid in tube #1, 0.4 ml's of clear fluid in tube #2, 0.5 ml's of clear fluid in tube #3 and 0.1 ml's of clear fluid in tube #4 all for thinprep 12/07/2024 5:[address] [facility] Cerebrospinal Fluid Lumbar puncture / Unknown Non-blood Collection / Unknown 12/06/2024 4:21 PM EDT 12/07/2024 8:42 AM EDT us Bernice Eckert MD LAB CYTOLOGY ORDERABLES Final R esult Performing Organization Address [facility]/[place] [address] * (ABNORMAL) Vancomycin, Peak, Plasma (12/05/2024 12:14 PM EDT) Vancomycin, Peak, Plasma 49.6(H) 20.0 - 40.0 ug/mL 12/05/2024 1:[address] 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 Scattered X1hmihrvzmeyhebemz of the mastoid air cells. Orbits: No [...] otherwise specified) in a 10/20 system with [employer] software and hardware. Additional electrodes: none FT9/FT10: [...] for characterization of spells. Shawna Juárez MD [facility] [facility] [phone] [1] No current facility-administered medications for this visit. Current Outpatient Medications Medication Sig Dispense Refill acetaminophen (Tylenol) 325 MG tablet Take 2 tablets by mouth every 6 hours. Under [place] law, monthly prescriptions (30 days) can be [...] DS 800-160 MG tablet every 12 hours. Zeloobj-Fwdgjxcjuwt-Quzrtkgnjv (Breztri Aerosphere) 160-9-4.8 MCG/ACT aerosol Inhale 2 [...] 399=12units max of 36units daily nystatin (Mycostatin) 862045 UNIT/GM powder Apply on bottom 2 times [...] APRN, DNP 40 mg at 12/01/24 0857 gabapentin (Neurontin) capsule 100 mg 100 mg [...] Ulysses Nolasco DO 500 mg at 12/01/24 08 magic butt balm (Cholestyramine) ointment 1 Application [...] DNP 50 mg at 12/01/24 0857 Tiotropium Tichnor Monohydrate (Spiriva Respimat) 2.5 MCG/ACT inhaler 2 puff 2 puff Inhalation Daily Gustavo Johnson APRN, DNP 2 puff at 12/01/24 0900 [...] 1 Application at 12/01/24 0857 nystatin (Mycostatin) 924643 UNIT/GM powder Topical BID Gustavo Johnson APRN, [...] mL Intravenous PRN Gustavo Johnson APRN, DNP us Noemí Leigh MD NEUROLOGY ORDERABLES Final Res ult * (ABNORMAL) Cystatin C (12/01/2024 5:02 AM EDT) Cystatin C 2.03(H) 0.61 - 0.95 mg/L 12/01/2024 8:31 AM EDT [facility] Blood Venous blood specimen / Unknown Venipuncture / Unknown 12/01/2024 5:02 AM EDT 12/01/2024 5:19 AM EDT us Noemí Leigh MD LAB BLOOD ORDERABLES Final Res ult [facility] [address] [place] [address] * US Renal Complete (11/30/2024 12:47 PM [...] with the final edited report. Drafted by nAum Hurley RVT on 11/30/2024 7:44 AM Final report signed by Laura Meeks MD on 11/30/2024 9:44 AM Gustavo Johnson PATIENT OFFICE REP, DNP CV VASCULAR PROCEDURES F inal Result * SARS CoV-2/COVID-19 by PCR (11/30/2024 2:09 AM EDT) SARS CoV-2/COVID-1 9 RNA PCR Result Not Detected Not Detected 11/30/2024 4:02 AM EDT [facility] Swab Nasopharyngeal structure / Unknown Non-blood Collection / Unknown 11/30/2024 2:09 AM EDT 11/30/2024 3:15 AM EDT Narrative [facility] - 11/30/2024 4:02 AM [...] signs and symptoms consistent with COVID-19. us Gustavo Johnson APRN, [facility] LAB MICROBIOLOGY - GENER AL ORDERABLES Final Result Performing Organization Address [facility] de Phone Number [facility] [address] [place] [address] * (ABNORMAL) D Dimer (11/30/2024 2:09 AM EDT) D Dimer, Quantitative 8.98(H) <0.50 ug/mL FEU LAB COAGULATION METHOD 11/30/2024 3:05 AM EDT [facility] Blood Venous blood specimen / Unknown Venipuncture / Unknown 11/30/2024 2:09 AM EDT 11/30/2024 2:33 AM EDT Narrative [facility] - 11/30/2024 3:05 AM [...] be considered in the clinical context. us Gustavo Johnson APRN, [facility] LAB BLOOD ORDERABLES Fin al Result Performing Organization Address [facility] de Phone Number [facility] [address] [place] [address] * Creatine Kinase (CK), Total (11/30/2024 2:09 AM EDT) Creatine Kinase, Plasma 55 37 - 168 U/L 11/30/2024 10:21 AM EDT [facility] Blood Venous blood specimen / Unknown Venipuncture / Unknown 11/30/2024 2:09 AM EDT 11/30/2024 2:33 AM EDT us Noemí Leigh MD LAB BLOOD ORDERABLES Final Res ult [facility] [address] [place] [address] * Urea Nitrogen, Random Urine (11/29/2024 11:17 PM EDT) Urea Nitrogen, Urine 87 mg/dL 11/30/2024 1:00 AM EDT [facility] Urine Urine specimen obtained by clean catch procedure / Unknown Non-blood Collection / Unknown 11/29/2024 11:17 PM EDT 11/29/2024 11:39 PM EDT us Nilson Jimenez MD LAB URINE ORDERABLES Final Resul t Performing Organization Address [facility]/ZIP Co de Phone Number [facility] [address] [place] [address] * Sodium, Random, Urine (11/29/2024 11:17 PM EDT) Sodium, Urine 85 mmol/L 11/30/2024 12:58 AM EDT [facility] Urine Urine specimen obtained by clean catch procedure / Unknown Non-blood Collection / Unknown 11/29/2024 11:17 PM EDT 11/29/2024 11:39 PM EDT us Nilson Jimenez MD LAB URINE ORDERABLES Final Resul t Performing Organization Address [facility]/ZIP Co de Phone Number [facility] [address] [place] [address] * Creatinine, Random, Urine (11/29/2024 11:17 PM EDT) Creatinine, Urine 24 mg/dL 11/30/2024 12:58 AM EDT [facility] Urine Urine specimen obtained by clean catch procedure / Unknown Non-blood Collection / Unknown 11/29/2024 11:17 PM EDT 11/29/2024 11:39 PM EDT us Nilson Jimenez MD LAB URINE ORDERABLES Final Resul t [facility] [address] [place] [address] * Urinalysis with reflex microscopic (Culture NOT Included) (11/29/2024 11:17 PM EDT) Only the most recent of4 resultswithin the time period is included. Color, Urine Yellow LAB URINALYSIS - AUTOMATED METHOD 11/29/2024 11:33 PM EDT [facility] Clarity, Urine Clear LAB URINALYSIS - AUTOMATED METHOD 11/29/2024 11:33 PM EDT [facility] Spec [place], Urine 1.007 1.005 - 1.030 LAB URINALYSIS - AUTOMATED METHOD 11/29/2024 11:33 PM EDT [facility] pH, Urine 6.5 5.0 - 8.0 LAB URINALYSIS - AUTOMATED METHOD 11/29/2024 11:33 PM EDT [facility] Protein, Urine Negative Negative mg/dL LAB URINALYSIS - AUTOMATED METHOD 11/29/2024 11:33 PM EDT [facility] Glucose, Urine Negative Negative mg/dL LAB URINALYSIS - AUTOMATED METHOD 11/29/2024 11:33 PM EDT [facility] Ketones, Urine Negative Negative mg/dL LAB URINALYSIS - AUTOMATED METHOD 11/29/2024 11:33 PM EDT [facility] Blood, Urine Negative Negative LAB URINALYSIS - AUTOMATED METHOD 11/29/2024 11:33 PM EDT [facility] Bilirubin, Urine Negative Negative LAB URINALYSIS - AUTOMATED METHOD 11/29/2024 11:33 PM EDT [facility] Urobilinogen, Urine 0.2 0.2 to 1.0 mg/dL LAB URINALYSIS - AUTOMATED METHOD 11/29/2024 11:33 PM EDT [facility] Leukocytes, Urine Negative Negative LAB URINALYSIS - AUTOMATED METHOD 11/29/2024 11:33 PM EDT [facility] Nitrite, Urine Negative Negative LAB URINALYSIS - AUTOMATED METHOD 11/29/2024 11:33 PM EDT [facility] Urine Urine specimen obtained by clean catch procedure / Unknown Non-blood Collection / Unknown 11/29/2024 11:17 PM EDT 11/29/2024 11:30 PM EDT us Nilson Jimenez MD LAB URINE ORDERABLES Final Resul t [facility] [address] [place] [address] * (ABNORMAL) Comprehensive Urine Drug Screening, Qualitative Assay, >= 27 Drug Classes (59:34 PM EDT) Acetaminophen Negative Negative 12/01/2024 1:33 PM EDT [facility] Alprazolam Negative Negative 12/01/2024 1:33 PM EDT [facility] Amantadine Negative Negative 12/01/2024 1:33 PM EDT [facility] Amitriptyline Negative Negative 12/01/2024 1:33 PM EDT [facility] Amphetamine Negative Negative 12/01/2024 1:33 PM EDT [facility] Atenolol Negative Negative 12/01/2024 1:33 PM EDT [facility] Benzoylecgonine Negative Negative 1:33 PM EDT [facility] Bisoprolol Negative Negative 12/01/2024 1:33 PM EDT [facility] Bupropion Negative Negative 12/01/2024 1:33 PM EDT [facility] Butalbital Negative Negative 12/01/2024 1:33 PM EDT [facility] Carbamazepine Negative Negative 12/01/2024 1:33 PM EDT [facility] Carisoprodol Negative Negative 12/01/2024 1:33 PM EDT [facility] Chlorpheniramine Negative Negative 12/02/19 1:33 PM EDT [facility] Citalopram Negative Negative 12/01/2024 1:33 PM EDT [facility] Clindamycin Negative Negative 12/01/2024 1:33 PM EDT [facility] Clonidine Negative Negative 12/01/2024 1:33 PM EDT [facility] Clopidogrel / Ticlopidine Negative Negative 12/01/2024 1:33 PM EDT [facility] Cocaethylene Negative Negative 12/01/2024 1:33 PM EDT [facility] Cocaine Negative Negative 12/01/2024 1:33 PM EDT [facility] Codeine Negative Negative 12/01/2024 1:33 PM EDT [facility] Cyclobenzaprine Negative Negative 1:33 PM EDT [facility] Desvenlafaxine Negative Negative 12/01/2024 1:33 PM EDT [facility] Dextromethorphan Negative Negative 12/02/19 1:33 PM EDT [facility] Diazepam Negative Negative 12/01/2024 1:33 PM EDT [facility] Diltiazem Negative Negative 12/01/2024 1:33 PM EDT [facility] Diphenhydramine Negative Negative 1:33 PM EDT [facility] Doxepine Negative Negative 12/01/2024 1:33 PM EDT [facility] Doxylamine Negative Negative 12/01/2024 1:33 PM EDT [facility] EDDP-Methadone metabolite Negative Negative 12/01/2024 1:33 PM EDT [facility] Fentanyl Negative Negative 12/01/2024 1:33 PM EDT [facility] Fluconazole Positive(A) Negative 12/01/2024 1:33 PM EDT [facility] Fluoxetine Negative Negative 12/01/2024 1:33 PM EDT [facility] Guaifenesin Negative Negative 12/01/2024 1:33 PM EDT [facility] Haloperidol Negative Negative 12/01/2024 1:33 PM EDT [facility] Heroin/6-PINKY Negative Negative 12/01/2024 1:33 PM EDT [facility] Hydrocodone Negative Negative 12/01/2024 1:33 PM EDT [facility] Hydroxyzine / Cetirizine metabolite Negative Negative 12/01/2024 1:33 PM EDT [facility] Ibuprofen Negative Negative 12/01/2024 1:33 PM EDT [facility] Imipramine Negative Negative 12/01/2024 1:33 PM EDT [facility] Ketamine Negative Negative 12/01/2024 1:33 PM EDT [facility] Labetolol Negative Negative 12/01/2024 1:33 PM EDT [facility] Lamotrigine Negative Negative 12/01/2024 1:33 PM EDT [facility] Levetiracetam Negative Negative 12/01/2024 1:33 PM EDT [facility] Lidocaine Negative Negative 12/01/2024 1:33 PM EDT [facility] MDA Negative Negative 12/01/2024 1:33 PM EDT [facility] MDMA Negative Negative 12/01/2024 1:33 PM EDT [facility] Memantine Negative Negative 12/01/2024 1:33 PM EDT [facility] Meperidine Negative Negative 12/01/2024 1:33 PM EDT [facility] Meprobamate Negative Negative 12/01/2024 1:33 PM EDT [facility] Metaxalone Negative Negative 12/01/2024 1:33 PM EDT [facility] Methamphetamine Negative Negative 1:33 PM EDT [facility] Methocarbamol Negative Negative 12/01/2024 1:33 PM EDT [facility] Methylecgonine Negative Negative 12/01/2024 1:33 PM EDT [facility] Metoclopramide Negative Negative 12/01/2024 1:33 PM EDT [facility] Metoprolol Negative Negative 12/01/2024 1:33 PM EDT [facility] Metronidazole Negative Negative 12/01/2024 1:33 PM EDT [facility] Midazolam Negative Negative 12/01/2024 1:33 PM EDT [facility] Midazolam Metabolite Negative Negative 12/01/2024 1:33 PM EDT [facility] Mirtazapine Negative Negative 12/01/2024 1:33 PM EDT [facility] Misc Test Result Positive(A) Negative 025 1:33 PM EDT [facility] Comment:Gabapentin: positive Naproxen Negative Negative 12/01/2024 1:33 PM EDT [facility] Nefazodone Negative Negative 12/01/2024 1:33 PM EDT [facility] Norfentanyl Negative Negative 12/01/2024 1:33 PM EDT [facility] Nortriptyline Negative Negative 12/01/2024 1:33 PM EDT [facility] Ordanstron Negative Negative 12/01/2024 1:33 PM EDT [facility] Oxcarbazepine Negative Negative 12/01/2024 1:33 PM EDT [facility] Oxycodone Negative Negative 12/01/2024 1:33 PM EDT [facility] Paroxethine Negative Negative 12/01/2024 1:33 PM EDT [facility] Phenobarbital Negative Negative 12/01/2024 1:33 PM EDT [facility] Phentermine Negative Negative 12/01/2024 1:33 PM EDT [facility] Phenytoin Negative Negative 12/01/2024 1:33 PM EDT [facility] Primidone Negative Negative 12/01/2024 1:33 PM EDT [facility] Promethazine Negative Negative 12/01/2024 1:33 PM EDT [facility] Propofol Negative Negative 12/01/2024 1:33 PM EDT [facility] Propranolol Negative Negative 12/01/2024 1:33 PM EDT [facility] Quetiapine Negative Negative 12/01/2024 1:33 PM EDT [facility] Quinine Negative Negative 12/01/2024 1:33 PM EDT [facility] Rantidine Negative Negative 12/01/2024 1:33 PM EDT [facility] Sertraline Negative Negative 12/01/2024 1:33 PM EDT [facility] Spironolactone Negative Negative 12/01/2024 1:33 PM EDT [facility] Tizanidine Negative Negative 12/01/2024 1:33 PM EDT [facility] Topiramate Negative Negative 12/01/2024 1:33 PM EDT [facility] Tramadol Negative Negative 12/01/2024 1:33 PM EDT [facility] Trazadone/ Trazadone metabolite Negative Negative 12/01/2024 1:33 PM EDT [facility] Trimethoprim Positive(A) Negative 12/01/2024 1:33 PM EDT [facility] Valproic Acid Negative Negative 12/01/2024 1:33 PM EDT [facility] Venlafaxine Negative Negative 12/01/2024 1:33 PM EDT [facility] Verapamil Negative Negative 12/01/2024 1:33 PM EDT [facility] Zolpidem Negative Negative 12/01/2024 1:33 PM EDT [facility] Xylazine Negative Negative 12/01/2024 1:33 PM EDT [facility] Urine Urine specimen obtained by clean catch procedure / Unknown Non-blood Collection / Unknown 11/29/2024 9:34 PM EDT 11/29/2024 9:53 PM EDT us Nisha Choudhury LAB URINE ORDERABLES Final Resul t [facility] [address] [place] [address] * Urine Meek Panel (11/29/2024 7:58 PM EDT) Only the most recent of2 resultswithin the time period is included. Extra Reflex urine culture not indicated 11/30/2024 5:01 AM EDT [facility] Comment: Previously prelim verified [...] Choudhury LAB URINE ORDERABLES Final Resul t [facility] [address] [place] [address] * CT Head wo IV Contrast (11/29/2024 7:42 PM EDT) Only the most recent of2 [...] IMG CT PROCEDURES Final Result * (ABNORMAL) Iron & Total Iron Binding Capacity, Plasma (Includes Transferrin) (11/19/2024 12:51 AM EDT) Iron, Plasma 67 30 - 160 ug/dL 11/19/2024 4:08 AM EDT [facility] Transferrin, Plasma 182(L) 200 - 360 mg/dL 11/19/2024 4:08 AM EDT [facility] Total Iron Binding Capacity, Plasma 228(L) 240 - 450 ug/mL 11/19/2024 4:08 AM EDT [facility] Transferrin Saturation 29 14 - 50 % 11/19/2024 4:08 AM EDT [facility] Blood Venous blood specimen / Unknown Venipuncture / Unknown 11/19/2024 12:51 AM EDT 11/19/2024 12:53 AM EDT us Regina Ivey MD LAB BLOOD ORDERABLES Final Resu lt Performing Organization Address City/State/[facility] Co de Phone Number [facility] [address] [place] [address] * CT MSK OUTSIDE IMAGES (11/18/2024 8:50 PM EDT) Anatomical Region Laterality Modality Computed Tomogra phy 11/18/2024 8:50 PM EDT us External Provider IMG CT PROCEDURES Final Result * CT OUTSIDE IMAGES (11/18/2024 8:38 PM EDT) Only the most recent of5 resultswithin the time period is included. Anatomical Region Laterality Modality Computed Tomogra phy 11/18/2024 8:38 PM EDT us Nuira RAMOS IMG CT PROCEDURES Final Resu lt [...] Ortiz MD LAB URINE ORDERABLES Final Result [facility] [address] [place] [address] * Drug Abuse Screen, Urine (11/16/2024 1:14 AM EDT) Amphetamine Screen Urine Negative Cutoff: 500 ng/mL 11/16/2024 1:42 AM EDT [facility] Benzodiazepines Screen Urine Negative Cutoff: 200 ng/mL 11/16/2024 1:42 AM EDT [facility] Cannabinoid Screen Urine Negative Cutoff: 50 ng/mL 11/16/2024 1:42 AM EDT [facility] Cocaine Screen Urine Negative Cutoff: 300 ng/mL 11/16/2024 1:42 AM EDT [facility] Barbiturate Screen Urine Negative Cutoff: 200 ng/mL 11/16/2024 1:42 AM EDT [facility] Opiate Screen Urine Negative Cutoff: 300 ng/mL 11/16/2024 1:42 AM EDT [facility] Methadone Screen Urine Negative Cutoff: 300 ng/mL 11/16/2024 1:42 AM EDT [facility] Buprenorphine Screen Urine Negative Cutoff: 10 ng/mL 11/16/2024 1:42 AM EDT [facility] Fentanyl Screen Urine Negative Cutoff: 1 ng/mL 11/16/2024 1:42 AM EDT [facility] Oxycodone Screen Urine Negative Cutoff: 100 ng/mL 11/16/2024 1:42 AM EDT [facility] Urine Urine specimen obtained by clean catch procedure / Unknown Non-blood Collection / Unknown 11/16/2024 1:14 AM EDT 11/16/2024 1:21 AM EDT us Ashu Ortiz MD LAB URINE ORDERABLES Final Result [facility] [address] [place] [address] * CT Venogram Head (11/15/2024 9:21 PM [...] Total DLP (Dose-Length Product): 1926.17 mGy.cm (accession [id number]), 1926.17 mGy.cm (accession [id number]). Please note: The reported value represents the [...] Total DLP (Dose-Length Product): 1926.17 mGy.cm (accession [id number]),1926.17 mGy.cm (accession [id number]). Please note: The reported valuerepresents the total [...] LAB HEMATOLOGY METHOD 11/15/2024 8:21 PM EDT [facility] Bicarbonate, Calculated, Venous 29(H) 22 - 26 mmol/L LAB HEMATOLOGY METHOD 11/15/2024 8:21 PM EDT [facility] Base Excess, Venous 3.2(H) -2.0 - 3.0 mmol/L LAB HEMATOLOGY METHOD 11/15/2024 8:21 PM EDT [facility] Lactate, Venous, Whole Blood 1.8 0.5 - 2.2 mmol/L LAB HEMATOLOGY METHOD 11/15/2024 8:21 PM EDT [facility] Blood Venous blood specimen / Unknown Venipuncture / Unknown 11/15/2024 8:06 PM EDT 11/15/2024 8:20 PM EDT Ashu Ortiz MD LAB BLOOD ORDERABLES Final Result [facility] [address] [place] [address] * Ethyl Alcohol Plasma (11/15/2024 6:51 PM EDT) Ethanol Plasma <10 <10 mg/dL 11/15/2024 7:19 PM EDT [facility] Blood Venous blood specimen / Unknown Venipuncture / Unknown 11/15/2024 6:51 PM EDT 11/15/2024 6:56 PM EDT Narrative [facility] - 11/15/2024 7:19 PM EDT Enzymatic Assay: Performed on Nayeli Linnette. Ashu Ortiz MD LAB BLOOD ORDERABLES Final Result Performing Organization Address City/[facility]/ZIP Co de Phone Number [facility] [address] [place] [address] * Test Qualitative Plasma (11/15/2024 6:51 PM EDT) Test Negative Negative 11/15/2024 7:[address] [facility] Blood Venous blood specimen / Unknown Venipuncture / Unknown 11/15/2024 6:51 PM EDT 11/15/2024 6:56 PM EDT Narrative [facility] - 11/15/2024 7:47 PM EDT Reference Range: Males and non- females: Negative. Ashu Ortiz MD LAB BLOOD ORDERABLES Final Result Performing Organization Address City/[facility]/ZIP Co de Phone Number [facility] [address] [place] [address] * Gold Top (11/15/2024 6:41 PM EDT) Pathologist [facility] Extra Hold for add-ons 11/15/2024 9:01 PM EDT [facility] Comment:Auto resulted. Blood Venous blood specimen / Unknown 11/15/2024 6:41 PM EDT 11/15/2024 6:56 PM EDT Ashu Ortiz MD LAB BLOOD ORDERABLES Final Result [facility] [address] [place] [address] * XR OUTSIDE IMAGES (11/15/2024 2:42 PM EDT) Anatomical Region Laterality Modality Radiographic Carolyne ging 11/15/2024 2:42 PM EDT Regina Katz PATIENT OFFICE REP IMG XR PROCEDURES Final Res ult * [...] APRN IMG CT PROCEDURES Final Res ult * (ABNORMAL) Hemoglobin A1c (09/02/2024 3:25 AM EDT) Hemoglobin A1c 6.3(H) <5.7 % 09/02/2024 6:18 AM EDT [facility] Blood Venous blood specimen / Unknown Venipuncture / Unknown 09/02/2024 3:25 AM EDT 09/02/2024 3:56 AM EDT Narrative [facility] - 09/02/2024 6:18 AM EDT HA1C Interpretive Data: Diagnosis of Diabetes: Diabetic > or = 6.5% Pre-diabetic 5.7 to 6.4% Non-diabetic < or = 5.6% Glycemic Targets for Type I and Type II Diabetics: Non- Adults <7.0% Adults <6.0% Children and Adolescents <7.5% Source: [place] [employer]. Standards of medical care in diabetes,2017. Diabetes Care.2017:40 (suppl 1):S1-S135. Zoraida Herbert MD LAB BLOOD ORDERABLES Final Re sult [facility] [address] [place] [address] * ED HIV 1/2 Antibody/Antigen Screen w/Reflex to HIV 1/2 Differentiation (08/31/2024 5:54 PM EDT) [facility] HIV 1 & 2 Antibody/Antigen Screen Non Reactive Non Reactive 08/31/2024 7:08 PM EDT [facility] Comment:Screening for HIV 1 & 2 antibodies, and P24 antigen is NONREACTIVE. No confirmatory testing is required. Blood Venous blood specimen / Unknown Venipuncture / Unknown 08/31/2024 5:54 PM EDT 08/31/2024 6:28 PM EDT us Kim Lares MD LAB BLOOD ORDERABLES Final Re sult Performing Organization Address City/[facility]/ZIP Co de Phone Number [facility] [address] [place] [address] * Hepatitis C Antibody - ED (08/31/2024 5:54 PM EDT) [facility] Hepatitis C Antibody Negative Negative 08/31/2024 7:[address] 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 12/16/2024 12/22/2024 Insurance [facility] MEDICAID Advance Directives * Full Code (Latest Code Status on File) Date Activated Date Inactivated Comments 01/17/2025 8:26 PM 01/18/2025 9:07 PM Question Answer Comments I have reviewed the capacity from the link above and, if needed, have updated to appropriate status: Yes * Full Code Date Activated Date Inactivated Comments 12/16/2024 4:51 [...] updated to appropriate status: Yes Care Teams Starch Cooker Relationship Specialty Start Date End Date Laurie Gutierrez MD [address] [place] [address] PCP - General 12/09/23 Joshua Martínez MD [address] [place] [address] [address] [place] [phone] Consulting Physician Radiation Oncology 09/19/24
--- OUTSIDE RECORDS SUMMARY | 2025-02-10 13:38 | XMS_ITS | Encounter Summary ---
Author Organization [facility] Address [address] [place] [address] Care Team Providers Care Aircraft Rigging And Controls Mechanic Name Role Phone Laurie Gutierrez MD Primary Care Provider [phone] Joshua Martínez MD Unavailable Encounter Details Date Type Department Care Team (Latest Contact Info) Description 01/26/2025 Travel Social History Tobacco Use Types Packs/Day [...] drink first t laurie in the morning (EYE-MOWER SHARPENER) to steady your nerves or to get [...] Upcoming Encounters Date Type Department Care Team ([facility] st Contact Info) Description 02/21/2025 8:45 AM EDT Clinical Support [facility] [address] [facility], [address]nd [place] [phone] 02/21/2025 9:20 AM EDT Office Visit [facility] [address] [facility], [address] [place] [address] Satnam Colvin MD [address] [facility] [address] [place] [phone] 02/21/2025 11:00 AM EDT Appointment [facility] [address] [place] [address] 02/22/2025 2:30 PM EDT Appointment [facility] [address] [place] [address] 02/23/2025 3:30 PM EDT Appointment [facility] [address] [place] [phone] 03/08/2025 1:00 PM EDT Office Visit [facility] [place] [address] [facility] [place] [phone] Teresita Oconnell MD [address] [place] [phone] 03/10/2025 2:20 PM EDT Appointment [facility] [address] [place] [address] 03/10/2025 3:45 PM EDT Appointment [facility] S Radiology 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 12/16/2024 12/22/2024 Assessment Noted Time PHQ-9 Depression Total Score: 0 09/01/19 3:26 PM EDT A fall risk assessment has been complete d for the patient 01/26/2025 10:30 AM EDT A Body Mass Index follow-up plan has been documented for the patient 01/26/2025 11:42 AM EDT documented as of this encounter Care Teams Aircraft Rigging And Controls Mechanic Relationship Specialty Start Date End Date Laurie Gutierrez MD [address] [place], [place] [phone] PCP - General 12/09/23 Joshua Martínez MD [address] [place] [address] [place] [phone] Consulting Physician Radiation Oncology 09/19/24 documented as of this encounter
--- OUTSIDE RECORDS SUMMARY | 2025-02-10 13:38 | XMS_ITS | Encounter Summary ---
Author Organization [facility] Address [address] [place] [address] Care Team Providers Care Slag Wheeler Name Role Phone Laurie Gutierrez MD Primary Care Provider [phone] Joshua Martínez MD Unavailable Encounter Details Date Type Department Care Team (Latest Contact Info) Description 01/05/2025 Travel Social History Tobacco Use Types Packs/Day [...] drink first t laurie in the morning (EYE-CLAY PRODUCTS MACHINE OPERATOR) to steady your nerves or [...] Teresa Luevano documented as of this encounter Plan of Treatment Upcoming Encounters Date Type Department Care Team (Late st Contact Info) Description 02/21/2025 8:45 AM EDT Clinical Support [facility] [address] [phone] 02/21/2025 9:20 AM EDT Office Visit [facility] [address] [address] Satnam Colvin MD 800 [facility] [address] [place] [address] 02/21/2025 11:00 AM EDT Appointment [facility] [address] [place] [address] 02/22/2025 2:30 PM EDT Appointment [facility] [address] [place] [address] 02/23/2025 3:30 PM EDT Appointment [facility] [address] [place] [address] 03/08/2025 1:00 PM EDT Office Visit [facility] [place] [address] [place] [address] Teresita Oconnell MD [address] [place] [address] 03/10/2025 2:20 PM EDT Appointment [facility] [address] [place] [address] 03/10/2025 3:45 PM EDT Appointment [facility] S Radiology 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 12/16/2024 12/22/2024 Assessment Noted Time PHQ-9 Depression Total Score: 0 09/01/19 25 3:26 PM EDT A fall risk assessment has been complete d for the patient 01/05/2025 12:57 PM EDT A Body Mass Index follow-up plan has been documented for the patient 01/05/2025 1:37 PM EDT documented as of this encounter Care Teams Slag Wheeler Relationship Specialty Start Date End Date Laurie Gutierrez MD [address] [place] [address] PCP - General 12/09/23 Joshua Martínez MD [address] [place] [address] Consulting Physician Radiation Oncology 09/19/24 documented as of this encounter
--- OUTSIDE RECORDS SUMMARY | 2025-02-10 13:38 | XMS_ITS ---
Author Organization [facility] Address [address] [place] [address] Care Team Providers Care Chief Mechanical Engineer Name Role Phone Laurie Gutierrez MD Primary Care Provider [phone] Joshua Martínez MD Unavailable Active Problems Problem [...] Provider:Satnam Colvin MD Linked Problems Small cell carcinoma of righ t lung, unspecified part of lung Treatment Medications No medications scheduled. CARBOplatin / Etoposide Daily x 3 / Atezolizumab Every 21 Days* Plan Start Date: 10/03/2024 Plan Provider:Satnam Colvin MD Linked Problems Small cell carcinoma of righ t lung, unspecified part of lung Treatment Medications Current Day (Day 1 , Cycle 4 - Planned for 02/21/2025) Next Day (Day 2, Cycle 4 - Planned for 02/22/2025) Gcutahjikmio-Iiuogwwlilpwo-r qjs (Tecentriq Hybreza) [id number] MG-UT/15ML solutionCARBOplatin (Paraplatin)CARBOplatin (Paraplatin) IVPB (by AUC: GOG-COCKCROFT GAULT)Etoposide (Toposar)etoposide (Vepesid) IVPB Atezolizumab-Hyaluronidase- tqjs (Tecentriq Hybreza) [id number] MG-UT/15ML injection solution 1,875 mgCARBOplatin (Paraplatin) in sodium chloride 0.9 % 250 mL [...] Therapy Plans No past plan information found. Past Radiation Episodes * SBRT: Midline BrainOverview* First Treatment Date Last Treatment Date Treatment Site Technique Goal Episode [...] bloating 04/03/2022 Nausea and vomiting 04/03/2022 02/06/20 25
--- OUTSIDE RECORDS SUMMARY | 2025-02-10 13:38 | XMS_ITS | Encounter Summary ---
Author Organization [facility] Address [address] [place] [address] Care Team Providers Care Programmer Engineering And Scientific Name Role Phone Laurie Gutierrez MD Primary Care Provider [phone] Joshua Martínez MD Unavailable Encounter Details Date Type Department Care Team (Latest Contact Info) Description 01/04/2025 Travel Social History Tobacco Use Types Packs/Day [...] drink first t laurie in the morning (EYE-TECHNICAL MANAGER CHEMICAL PLANT) to steady your nerves or to get [...] Upcoming Encounters Date Type Department Care Team ([facility] st Contact Info) Description 02/21/2025 8:45 AM EDT Clinical Support [facility] [address] [facility], [address]nd [place] [address] 02/21/2025 9:20 AM EDT Office Visit [facility] [address] [facility], [address] [place] [address] Satnam Colvin MD [address] [facility] [address] [facility] [address] [place] [phone] 02/21/2025 11:00 AM EDT Appointment [facility] [address] [place] [address] 02/22/2025 2:30 PM EDT Appointment [facility] 1 [address] [place] [address] 02/23/2025 3:30 PM EDT Appointment [facility] [address] [place] [address] 03/08/2025 1:00 PM EDT Office Visit [facility] [place] [address] [facility]. [address] [place] [address] Teresita Oconnell MD [address] [place] [address] 03/10/2025 2:20 PM EDT Appointment [facility] [address], [address] [place] [address] 03/10/2025 3:45 PM EDT Appointment [facility] Radiology 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 12/16/2024 12/22/2024 Assessment Noted Time PHQ-9 Depression Total Score: 0 09/01/19 25 3:26 PM EDT A fall risk assessment has been complete d for the patient 01/03/2025 9:25 AM EDT A Body Mass Index follow-up plan has been documented for the patient 12/23/2024 8:17 AM EDT documented as of this encounter Care Teams Programmer Engineering And Scientific Relationship Specialty Start Date End Date Laurie Gutierrez MD [address] [place], [place] [phone] PCP - General 12/09/23 Joshua Martínez MD [address] [place], [place] [address]D [place] [address] Consulting Physician Radiation Oncology 09/19/24 documented as of this encounter
--- OUTSIDE RECORDS SUMMARY | 2025-02-10 13:38 | XMS_ITS | Encounter Summary ---
Author Organization [facility] Address [address] [place] [address] Care Team Providers Care Knitted Cloth Examiner Name Role Phone Laurie Gutierrez MD Primary Care Provider [phone] Joshua Martínez MD Unavailable Reason for Visit * Reason Comments Distress Screen Follow-up Encounter Details Date Type Department Care Team (Late st Contact Info) Description 01/04/2025 Social Work Psych Oncology [address] [place] [address] Mariah Rowley Social History Tobacco Use Types [...] drink first t laurie in the morning (EYE-DISTRICT COURT JUSTICE) to steady your nerves or to get [...] (1 unit = 15 minutes): 1 Narrative: SOLAR MAINTENANCE TECHNICIAN attempted to reach pt regarding DT screen. Pt did not answer phone. Left VM with contact information and encouraged pt to reach out if pt has any needs, questions, or concerns. Mariah Rowley, TOE LASTER, SOLAR MAINTENANCE TECHNICIAN [facility] documented in this encounter Plan of Treatment Upcoming Encounters Date Type Department Care Team ([facility] st Contact Info) Description 02/21/2025 8:45 AM EDT Clinical Support Pav [facility] Head, Neck & Respiratory 800 [facility], 2nd [place] [address] 02/21/2025 9:20 AM EDT Office Visit Pav [facility] Head, Neck & Respiratory 800 [facility], 2nd [place] [address] Satnam Colvin MD 800 [facility] Nuria Degroot [facility] [address] [place] [address] 02/21/2025 11:00 AM EDT Appointment [facility] Infusion Clinic 1 [address] [place] [address] 02/22/2025 2:30 PM EDT Appointment [facility] Infusion Clinic 1 [address] [place] [address] 02/23/2025 3:30 PM EDT Appointment [facility] 1 [address] [place] [address] 03/08/2025 1:00 PM EDT Office Visit [facility] [place] 800 [facility]. [address] [place] [address] Teresita Oconnell MD [address] [place] [address] 03/10/2025 2:20 PM EDT Appointment [facility] [address], [address]nd [place] [address] 03/10/2025 3:45 PM EDT Appointment [facility] Radiology 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 12/16/2024 12/22/2024 Assessment Noted Time PHQ-9 Depression Total Score: 0 09/01/19 25 3:26 PM EDT A fall risk assessment has been complete d for the patient 01/03/2025 9:25 AM EDT A Body Mass Index follow-up plan has been documented for the patient 12/23/2024 8:17 AM EDT documented as of this encounter Care Teams Knitted Cloth Examiner Relationship Specialty Start Date End Date Laurie Gutierrez MD [address] [place] [address] PCP - General 12/09/23 Joshua Martínez MD [address] [place] [address] Consulting Physician Radiation Oncology 09/19/24 documented as of this encounter
--- OUTSIDE RECORDS SUMMARY | 2025-02-10 13:38 | XMS_ITS | Encounter Summary ---
Author Organization [facility] Address [address] [place] [address] Care Team Providers Care Bike Shop Manager Name Role Phone Laurie Gutierrez MD Primary Care Provider Joshua Martínez MD Unavailable Reason for Referral * Imaging (Routine) - Pending Review Specialty Diagnoses / Procedures Referred By Contac t Referred To Contact Radiology Diagnoses Metastasis to brain Procedures MR Head w and wo IV Contrast Abhilash Bangura MD [address] [address] Phone: tel: fax: Referral ID Status Reason Start Date Expiration Date V isits Requested Visits Authorized [id number] Pending Review 01/10/2025 07/12/2026 1 1 Encounter Details Date Type Department Care Team (Late st Contact Info) Description 01/10/2025 Orders Only [place] [facility] [address], 1st [place] [address] Abhilash Bangura MD [id number] [place] [address] 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CMS/HCC) (Primary [...] laurie in the morning (EYE-FORM SETTER STEEL PAN FORMS) to steady your nerves or to [...] 800 [facility], 2nd [place] [address] 02/21/2025 9:20 AM EDT Office Visit Pav CC Head, Neck & Respiratory 800 [facility], 2nd [place] [address] SeSatnam Christianson MD 800 [facility] Nuria Degroot [facility] [address] [place] [address] 02/21/2025 11:00 AM EDT Appointment [facility] Infusion Clinic 1 [address] [place] [address] 02/22/2025 2:30 PM EDT Appointment [facility] Infusion Clinic 1 [address] [place] [address] 02/23/2025 3:30 PM EDT Appointment [facility] 1 [address] [place] [address] 03/08/2025 1:00 PM EDT Office Visit [facility] [place] 800 [facility]. [address] [place] [address] Teresita Oconnell MD [address] [place] [address] 03/10/2025 2:20 PM EDT Appointment [facility] CT [address], 2nd [place] [address] 03/10/2025 3:45 PM EDT Appointment [facility] Radiology [address], 1st [place] [address] 03/14/2025 11:00 AM EDT Office Visit Pav CC Head, Neck & Respiratory 800 [facility], 2nd [place] [address] Satnam Colvin MD 800 [facility] Nuria Zane [facility] [address] [place] [address] Scheduled Orders Name Type Priority Associated Diagnoses Orde r Schedule MR Head w and wo IV Contrast Imaging Routine 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CMS/HCC) Expected: 03/30/2025 (Approximate), Expires: 07/14/2026 documented as of this encounter Visit Diagnoses Diagnosis Metastasis to brain- Primary Secondary malignant neoplasm of brain and spinal cord documented in this encounter Additional Health Concerns Infection Onset Date Last Indicated Resolved Time 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 12/16/2024 12/22/2024 Assessment Noted Time PHQ-9 Depression Total Score: 0 09/01/19 3:26 PM EDT A fall risk assessment has been complete d for the patient 01/10/2025 9:02 AM EDT A Body Mass Index follow-up plan has been documented for the patient 01/05/2025 1:37 PM EDT documented as of this encounter Care Teams Bike Shop Manager Relationship Specialty Start Date End Date Laurie Gutierrez MD [address] [place] [address] PCP - General 12/09/23 Joshua Martínez MD [address] [place], [place] [address] [place] [address] Consulting Physician Radiation Oncology 09/19/24 documented as of this encounter
--- OUTSIDE RECORDS SUMMARY | 2025-02-10 13:38 | XMS_ITS | Encounter Summary ---
Author Organization [facility] Address [address] [place] [address] Care Team Providers Care Air Cargo Specialist Name Role Phone Laurie Gutierrez MD Primary Care Provider [phone] Joshua Martínez MD Unavailable Encounter Details Date [...] first t laurie in the morning (EYE-FIRE SYSTEMS INSPECTOR) to steady your nerves or to [...] [facility] Contact Info) Description 02/21/2025 8:45 AM EDT Clinical Support Pav CC Head, Neck & Respiratory [address] [facility], 2nd [place] [address] 02/21/2025 9:20 AM EDT Office Visit Pav CC Head, Neck & Respiratory [address] [facility], 2nd [place] [address] Satnam Colvin MD [address] [facility] Nuria Degroot [address] [address] 02/21/2025 11:00 AM EDT Appointment [facility] 1 [address] [place] [address] 02/22/2025 2:30 PM EDT Appointment [facility] 1 [address] [place] [address] 02/23/2025 3:30 PM EDT Appointment [facility] 1 [address] [place] [address] 03/08/2025 1:00 PM EDT Office Visit [facility] [place] [address] [facility]. [address] [place] [address] Teresita Oconnell MD [address] [place] [address] 03/10/2025 2:20 PM EDT Appointment [facility] CT [address], [address]nd [place] [address] 03/10/2025 3:45 PM EDT Appointment [facility] Radiology 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 12/16/2024 12/22/2024 Assessment Noted Time PHQ-9 Depression Total Score: 0 09/01/19 25 3:26 PM EDT A fall risk assessment has been complete d for the patient 01/03/2025 9:25 AM EDT A Body Mass Index follow-up plan has been documented for the patient 12/23/2024 8:17 AM EDT documented as of this encounter Care Teams Air Cargo Specialist Relationship Specialty Start Date End Date Laurie Gutierrez MD [address] [place] [address] PCP - General 12/09/23 Joshua Martínez MD [address] [place] [address] [address] [place] [address] Consulting Physician Radiation Oncology 09/19/24 documented as of this encounter
--- OUTSIDE RECORDS SUMMARY | 2025-02-10 13:38 | XMS_ITS | Encounter Summary ---
Author Organization [facility] Address [address] [place] [address] Care Team Providers Care Vision Therapist Name Role Phone Paola Hyde APRN Primary Care Provider [phone] Laurie Gutierrez MD Primary Care Provider [phone] Joshua Martínez MD Unavailable Jasmina Smith VENETIAN BLIND MACHINE OPERATOR Unavailable Unavailable Paradise Pacheco RN Unavailable Unavailab Sabine Crowe VENETIAN BLIND MACHINE OPERATOR Unavailable Unavailable Encounter Details Date Type Department Care Team (Late Contact Info) Description 09/01/2023 Orders Only External Location [address] [place] [address] Provider, External Social History Tobacco [...] & Respiratory 800 [facility], 2nd [place] [address] 02/21/2025 9:20 AM EDT Office Visit Pav CC Head, Neck & Respiratory [address], [address] [place] [address] Satnam Colvin MD 800 [facility] Nuria Degroot [facility] [address] [place] [address] 02/21/2025 11:00 AM EDT Appointment [facility] 1 [address] [place] [address] 02/22/2025 2:30 PM EDT Appointment [facility] 1 [address] [place] [address] 02/23/2025 3:30 PM EDT Appointment [facility] 1 [address] [place] [address] 03/08/2025 1:00 PM EDT Office Visit [facility] [place] [address] [facility] [place] [address] Teresita Oconnell MD [address] [place] [address] 03/10/2025 2:20 PM EDT Appointment [facility] [address], [address]nd [place] [address] 03/10/2025 3:45 PM EDT Appointment [facility] S Radiology 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 12/16/2024 12/22/2024 documented as of this encounter Care Teams Vision Therapist Relationship Specialty Start Date End Date Paola Hyde APRN [address] [place] [address] PCP - General 09/28/20 12/08/23 Laurie Gutierrez MD [address] [place] [address] PCP - General 12/09/23 Joshua Martínez MD [address] [address] Consulting Physician Radiation Oncology 09/19/24 Jasmina Smith LPN [employer] [address] TCM Nurse 10/19/24 11/01/24 Paradise Pacheco, RN CH-VASCULAR & INTERVENTIONAL RADIOLOGY Registered Nurse 11/21/24 11/21/24 Sabine Morales LPN TCM Nurse 11/23/24 12/23/24 documented as of this encounter
--- OUTSIDE RECORDS SUMMARY | 2025-02-10 13:38 | XMS_ITS | Encounter Summary ---
Author Organization Healthcare Address [address] [place] [address] Care Team Providers Care Molding Cutter Name Role Phone Lauire Gutierrez MD Primary Care Provider [phone] Joshua Martínez MD Unavailable Encounter Details Date Type Department Care Team (Late st Contact Info) Description 01/09/2025 Lab Requisition [facility] S Laboratory Services [address], [address]st [place] [address] Yosi Richmond MD [address] [place] [address] Infection following a procedure, other [...] drink first t laurie in the morning (EYE-MICROBIOLOGICAL LABORATORY TECHNICIAN) to steady your nerves or to [...] Upcoming Encounters Date Type Department Care Team ([facility] st Contact Info) Description 02/21/2025 8:45 AM EDT Clinical Support Pav CC Head, Neck & Respiratory 800 [facility] 2nd [place] [address] 02/21/2025 9:20 AM EDT Office Visit Pav CC Head, Neck & Respiratory 800 [facility], [address] [place] [address] Satnam Colvin MD 800 [facility] Nuria Degroot [facility] [address] [place] [address] 02/21/2025 11:00 AM EDT Appointment [facility] 1 [address] [place] [address] 02/22/2025 2:30 PM EDT Appointment [facility] 1 [address] [place] [address] 02/23/2025 3:30 PM EDT Appointment [facility] 1 [address] [place] [address] 03/08/2025 1:00 PM EDT Office Visit [facility] [place] [address] [place] [address] Teresita Oconnell MD [address] [place] [address] 03/10/2025 2:20 PM EDT Appointment [facility] [address], 2nd [place] [address] 03/10/2025 3:45 PM EDT Appointment [facility] [address], 1st [place] [address] 03/14/2025 11:00 AM EDT Office Visit Pav CC Head, Neck & Respiratory 800 [facility], [address]nd [place] [address] Satnam Colvin MD 800 [facility] Nuria [address] [place] [place] [address] documented as of this encounter Procedures Procedure Name Priority Date/Time Associated Diagnosis Comments CREATININE, PLASMA Routine 01/09/2025 10 :30 AM EDT Infection following a procedure, other surgical site, initial encounter 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 acute cor pulmonale (CMS/HCC) Dyspnea, unspecified Secondary malignant neoplasm of brain (CMS/HCC) CBC WITH AUTO DIFFERENTIAL Routine 01/09/2025 10:30 [...] encounter Results * (ABNORMAL) CBC and Differential (01/09/2025 10:30 AM EDT) Pathologist [facility] WBC Count 7.80 3.70 - 10.30 10*3/uL LAB HEMATOLOGY METHOD 01/09/2025 2:30 PM EDT [facility] RBC Count 3.02(L) 3.90 - 5.20 10*6/uL LAB HEMATOLOGY METHOD 01/09/2025 2:30 PM EDT [facility] HGB 9.5(L) 11.2 - 15.7 g/dL LAB HEMATOLOGY METHOD 01/09/2025 2:30 PM EDT [facility] HCT 30.6(L) 34.0 - 45.0 % LAB HEMATOLOGY METHOD 01/09/2025 2:30 PM EDT [facility] Platelet Count 151(L) 155 - 369 10*3/uL LAB HEMATOLOGY METHOD 01/09/2025 2:30 PM EDT [facility] MCV 101(H) 79 - 98 fL LAB HEMATOLOGY METHOD 01/09/2025 2:30 PM EDT [facility] Comment:Results inconsistent with previous lab findings. MCH 31.5 26.0 - 32.0 pg LAB HEMATOLOGY METHOD 01/09/2025 2:30 PM EDT [facility] MCHC 31.0 30.7 - 35.5 g/dL LAB HEMATOLOGY METHOD 01/09/2025 2:30 PM EDT [facility] RDW 20.4(H) 11.5 - 14.5 % LAB HEMATOLOGY METHOD 01/09/2025 2:30 PM EDT [facility] MPV 10.8 8.8 - 12.5 fL LAB HEMATOLOGY METHOD 01/09/2025 2:30 PM EDT [facility] nRBC 0.0 <=0.0 per 100 WBCs LAB HEMATOLOGY METHOD 01/09/2025 2:30 PM EDT [facility] Differential Type Automated LAB HEMATOLOGY METHOD 01/09/2025 2:30 PM EDT [facility] Neutrophils % 76 % LAB HEMATOLOGY METHOD 01/09/2025 2:30 PM EDT [facility] Lymphocytes % 12 % LAB HEMATOLOGY METHOD 01/09/2025 2:30 PM EDT [facility] Monocytes % 7 % LAB HEMATOLOGY METHOD 01/09/2025 2:30 PM EDT [facility] Eosinophils % 3 % LAB HEMATOLOGY METHOD 01/09/2025 2:30 PM EDT [facility] Basophils % 1 % LAB HEMATOLOGY METHOD 01/09/2025 2:30 PM EDT [facility] Immature Granulocytes % 1 % LAB HEMATOLOGY METHOD 01/09/2025 2:30 PM EDT [facility] Neutrophils Absolute 5.98 1.60 - 6.10 10*3/uL LAB HEMATOLOGY METHOD 01/09/2025 2:30 PM EDT [facility] Lymphocytes Absolute 0.92(L) 1.20 - 3.90 10*3/uL LAB HEMATOLOGY METHOD 01/09/2025 2:30 PM EDT [facility] Monocytes Absolute 0.51 0.30 - 0.90 10*3/uL LAB HEMATOLOGY METHOD 01/09/2025 2:30 PM EDT [facility] Eosinophils Absolute 0.25 0.00 - 0.50 10*3/uL LAB HEMATOLOGY METHOD 01/09/2025 2:30 PM EDT [facility] Basophils Absolute 0.10 0.00 - 0.10 10*3/uL LAB HEMATOLOGY METHOD 01/09/2025 2:30 PM EDT [facility] Immature Granulocytes Absolute 0.04 0.00 - 0.06 10*3/uL LAB HEMATOLOGY METHOD 01/09/2025 2:30 PM EDT [facility] Blood Venous blood specimen / Unknown 01/09/2025 10:30 AM EDT 01/09/2025 2:00 PM EDT Narrative HEALTHCARE LAB - 01/09/2025 2:30 PM EDT Therapeutic decision making should be based on absolute values, rather than percentages. us Yosi Richmond MD LAB BLOOD ORDERABLES Final Result [facility] [address] [place] [address] * Urea Nitrogen, Plasma (01/09/2025 10:30 AM EDT) BUN, Plasma 17 8 - 23 mg/dL 01/09/2025 2:24 PM EDT [facility] Blood Venous blood specimen / Unknown 01/09/2025 10:30 AM EDT 01/09/2025 2:00 PM EDT Yosi Richmond MD LAB BLOOD ORDERABLES Final Result Performing Organization Address City/[facility] de Phone Number [facility] [address] [place] [address] * Creatinine, plasma (01/09/2025 10:30 AM EDT) Creatinine, Plasma 0.96 0.60 - 1.10 mg/dL 01/09/2025 2:24 PM EDT [facility] eGFRcr 66.2 mL/min/1.7 3m*2 01/09/2025 2:24 PM EDT HEALTHCARE LAB Comment:Reported eGFRcr in m L/min/1.73m2 is based the CKD-EPI 2020 equation that does not use a race coefficient. Blood Venous blood specimen / Unknown 01/09/2025 10:30 AM EDT 01/09/2025 2:00 PM EDT us Yosi Richmond MD LAB BLOOD ORDERABLES Final Result Performing Organization Address [facility] de Phone Number [facility] [address] [place] [address] * C-reactive protein (01/09/2025 10:30 AM EDT) CRP, Plasma <3.0 <=8.0 mg/L 01/09/2025 2:24 PM EDT [facility] Blood Venous blood specimen / Unknown 01/09/2025 10:30 AM EDT 01/09/2025 2:00 PM EDT Narrative HEALTH[facility]ARE LAB - 01/09/2025 2:24 PM EDT This CRP test is appropriate for assessment of infection, systemic inflammation and/or tissue injury. To assess cardiovascular disease risk order high sensitivity CRP (CRPH). 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 12/16/2024 12/22/2024 Assessment Noted Time PHQ-9 Depression Total Score: 0 09/01/19 3:26 PM EDT A fall risk assessment has been complete d for the patient 01/05/2025 12:57 PM EDT A Body Mass Index follow-up plan has been documented for the patient 01/05/2025 1:37 PM EDT documented as of this encounter Care Teams Molding Cutter Relationship Specialty Start Date End Date Laurie Gutierrez MD [address] [place], [place] [phone] PCP - General 12/09/23 Joshua Martínez MD 800 [facility] [address] [place] [address] Consulting Physician Radiation Oncology 09/19/24 documented as of this encounter
--- OUTSIDE RECORDS SUMMARY | 2025-02-10 13:38 | XMS_ITS | Encounter Summary ---
Author Organization [facility] Address [address] [place] [address] Care Team Providers Care Distillery Worker Name Role Phone Laurie Gutierrez MD Primary Care Provider [phone] Joshua Martínez MD Unavailable Jasmina Smith MEDICAL ADMINISTRATIVE Unavailable Unavailable Paradise Pacheco RN Unavailable Unavailab Sabine Crowe MEDICAL ADMINISTRATIVE Unavailable Unavailable Encounter Details Date Type Department Care Team (Late st Contact Info) Description 06/10/2024 Orders Only External Location [address] [place] [address] Provider, External Social History Tobacco Use Types [...] in a detention (including now)? No 11/20/2023 CAGE ASSESSMENT Answer [...] first t laurie in the morning (EYE-DIRECTOR CAMP) to steady your nerves or to get [...] [facility] [address] [address] 02/21/2025 9:20 AM EDT Office Visit [facility] [address] [address] Satnam Colvin MD 800 [facility] Nuria Degroot [facility] [address] [place] [address] 02/21/2025 11:00 AM EDT Appointment [facility] Infusion Clinic 1 [address] [place] [address] 02/22/2025 2:30 PM EDT Appointment [facility] Infusion Clinic 1 [address] [place] [address] 02/23/2025 3:30 PM EDT Appointment [facility] 1 [address] [place] [address] 03/08/2025 1:00 PM EDT Office Visit [facility] [place] [address] [facility] [place] [address] Teresita Oconnell MD [address] [place] [address] 03/10/2025 2:20 PM EDT Appointment [facility] [address], [address]nd [place] [address] 03/10/2025 3:45 PM EDT Appointment [facility] Radiology [address], 1st [place] [address] 03/14/2025 11:00 AM EDT Office Visit [facility] [address] [facility], 2nd [place] [address] Satnam Colvin MD [address] [facility] N[address] [place] [facility] [address] [place] [address] documented as of this encounter Procedures Procedure [...] al Infection Comment:Pseudomonas aeruginosa MDR, SYSTEM ANALYST 10/26/2024 10/31/2024 COVID-19 Rule-Out 11/30/2024 11/30/2024 11/30/2024 4:02 AM EDT Respiratory Rule-Out 11/30/2024 11/30/2024 025 5:05 AM EDT Meningitis Rule-Out 12/06/2024 12/06/2024 12/07/19 8:29 PM EDT COVID-19 Rule-Out 12/15/2024 12/15/2024 12/16/2024 1:22 AM EDT Respiratory Rule-Out 12/15/2024 12/15/2024 025 2:33 AM EDT MDRO Comment:Pseudomonas aeruginosa MDR, SYSTEM ANALYST. 12/16/2024 12/22/2024 Assessment Noted Time A fall risk assessment has been complete d for the patient 01/27/2024 11:18 AM EDT A Body Mass Index follow-up plan has been documented for the patient 01/27/2024 12:19 PM EDT documented as of this encounter Care Teams Distillery Worker Relationship Specialty Start Date End Date Laurie Gutierrez MD [address] [place] [address] PCP - General 12/09/23 Joshua Martínez MD 800 [facility] [address] [place] [address] Consulting Physician Radiation Oncology 09/19/24 Jasmina Smith LPN [employer] [address] TCM Nurse 10/19/24 11/01/24 Paradise Pacheco, RN [facility]ULAR [facility] INTERVENTIONAL RADIOLOGY Registered Nurse 11/21/24 11/21/24 Sabine Morales LPN TCM Nurse 11/23/24 12/23/24 documented as of this encounter
--- OUTSIDE RECORDS SUMMARY | 2025-02-10 13:38 | XMS_ITS | Encounter Summary ---
Author Organization [facility] [place] Address [address] [place] [address] Care Team Providers Care Communication Analyst Name Role Phone Laurie Gutierrez MD Primary Care Provider [phone] Joshua Martínez MD Unavailable Encounter Details Date Type Department Care Team (Late st Contact Info) Description 01/25/2025 Clinical Support [facility] [address] [place] [address] Agustina Dawson, PharmD 3101 [facility] 100 [place] [address] Social History Tobacco Use Types Packs/Day Years [...] drink first t laurie in the morning (EYE-BIOMEDICAL REPAIR TECHNICIAN) to steady your nerves or to [...] [facility] st Contact Info) Description 02/21/2025 8:45 AM EDT Clinical Support [facility] 800 [facility] 2nd [place] [address] 02/21/2025 9:20 AM EDT Office Visit [facility] 800 [facility] 2nd [place] [address] Satnam Colvin MD 800 [facility] Nuria Degroot [facility] 134 [place] [address] 02/21/2025 11:00 AM EDT Appointment [facility] 1 [address] [place] [address] 02/22/2025 2:30 PM EDT Appointment [facility] 1 [address] [place] [address] 02/23/2025 3:30 PM EDT Appointment [facility] 1 [address] [place] [address] 03/08/2025 1:00 PM EDT Office Visit [facility] [place] [address] [place] [address] Teresita Oconnell MD [address] [place] [address] 03/10/2025 2:20 PM EDT Appointment [facility] [address], 2nd [place] [address] 03/10/2025 3:45 PM EDT Appointment [facility] S Radiology 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 12/16/2024 12/22/2024 Assessment Noted Time PHQ-9 Depression Total Score: 0 09/01/19 25 3:26 PM EDT A fall risk assessment has been complete d for the patient 01/10/2025 9:02 AM EDT A Body Mass Index follow-up plan has been documented for the patient 01/25/2025 11:19 AM EDT documented as of this encounter Care Teams Communication Analyst Relationship Specialty Start Date End Date Laurie Gutierrez MD [address] [place] [address] PCP - General 12/09/23 Joshua Martínez MD 800 [facility] [address] [place] [address] Consulting Physician Radiation Oncology 09/19/24 documented as of this encounter
--- OUTSIDE RECORDS SUMMARY | 2025-02-10 13:39 | XMS_ITS | Encounter Summary ---
Author Organization [facility] Address [address] [place] [address] Care Team Providers Care Patient Care Provider Name Role Phone Laurie Gutierrez MD Primary Care Provider [phone] Joshua Martínez MD Unavailable Encounter Details Date Type Department Care Team (Late st Contact Info) Description 02/09/2025 Telephone [facility] 800 [facility], 2nd [place] [address] Satnam Colvin MD 800 [facility] [address] [place] [address] Social History Tobacco Use Types Packs/Day Years [...] drink first t laurie in the morning (EYE-MORTISING MACHINE OPERATOR) to steady your nerves or to get rid of a hangover? 0 12/02/2024 CAGE Questionnaire Score 0 025 Utilities Answer Date Recorded In the past 12 months has e electric, gas, oil, or water [employer] threatened to shut off services in your home? No 12/16/2024 Comments No Sex and Gender Information Value Date Recorded Sex Assigned at Female 12/02/2024 4:52 PM EDT Legal Sex Female 8:32 PM EDT Gender Identity Female 12/02/2024 4:52 PM EDT Sexual Orientation Straight 12/02/2024 4: 52 PM EDT documented as of this encounter Miscellaneous Notes * Telephone Encounter - Sheridan Vila RN - 02/09/2025 2:22 PM EDT Spoke to Zachary. Told Zachary this will be C4. We like to keep the treatments on scheduled. We prefer not to delay treatments. We will keep appointments as planned. * Telephone Encounter - Lashanda Rodriguez - 02/09/2025 10:22 AM EDT Patient Phone Message Reason for Call: Pt's son called to get appts rescheduled. The appts that are currently on for 02/21-02/23. They would like to r/s these appts between 02/27- 03/03 if possible. Please call Zachary with new appt information. Best contact number and optimal time of day to reach caller: [phone] Note: Please do not reply to this [...] ([facility] st Contact Info) Description 02/21/2025 8:45 AM EDT Clinical Support [facility] 800 [facility], 2nd [place] [address] 02/21/2025 9:20 AM EDT Office Visit [facility] [address] [address] Satnam Colvin MD 800 [facility] [address] [place] [address] 02/21/2025 11:00 AM EDT Appointment [facility] Infusion Clinic 1 [address] [place] [address] 02/22/2025 2:30 PM EDT Appointment [facility] Infusion Clinic 1 [address] [place] [address] 02/23/2025 3:30 PM EDT Appointment [facility] Infusion Clinic 1 [address] [place] [address] 03/08/2025 1:00 PM EDT Office Visit [facility] [place] 800 [facility]. [address] [place] [address] Teresita Oconnell MD [address] [place] [address] 03/10/2025 2:20 PM EDT Appointment [facility] [address], [address] [place] [address] 03/10/2025 3:45 PM EDT Appointment [facility] S Radiology 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 12/16/2024 12/22/2024 Assessment Noted Time PHQ-9 Depression Total Score: 0 09/01/19 25 3:26 PM EDT A fall risk assessment has been complete d for the patient 02/02/2025 1:02 PM EDT A Body Mass Index follow-up plan has been documented for the patient 02/02/2025 2:50 PM EDT documented as of this encounter Care Teams Patient Care Provider Relationship Specialty Start Date End Date Laurie Gutierrez MD [address] [place] [address] PCP - General 12/09/23 Joshua Martínez MD [address] [facility] [address] [place] [address] Consulting Physician Radiation Oncology 09/19/24 documented as of this encounter
--- OUTSIDE RECORDS SUMMARY | 2025-02-10 13:39 | XMS_ITS | Encounter Summary ---
Author Organization [facility] Address [address] [place] [address] Care Team Providers Care Financial Secretary Name Role Phone Laurie Gutierrez MD Primary Care Provider [phone] Joshua Martínez MD Unavailable Reason for Referral * Imaging (Routine) - Pending Review Specialty Diagnoses / Procedures Referred By Mackenzie t Referred To Contact Radiology Diagnoses Small cell carcinoma of right lung, unspecified part of lung Procedures MR Head w and wo IV Contrast Satnam Colvin MD [address] [address] Phone: tel: fax: Referral ID Status Reason Start Date Expiration Date V isits Requested Visits Authorized [id number] Pending Review 02/09/2025 08/11/2026 1 1 * Imaging (Routine) - Pending Review Specialty Diagnoses / Procedures Referred By Contnida t Referred To Contact Radiology Diagnoses Small cell carcinoma of right lung, unspecified part of lung Procedures CT Abdomen Pelvis w IV Contrast Satnam Colvin MD [address] [address] Phone: tel: fax: Referral ID Status Reason Start Date Expiration Date V isits Requested Visits Authorized [id number] Pending Review 02/09/2025 08/11/2026 1 1 * Imaging (Routine) - Pending Review Specialty Diagnoses / Procedures Referred By Contac t Referred To Contact Radiology Diagnoses Small cell carcinoma of right lung, unspecified part of lung Procedures CT Chest w IV Contrast Satnam Colvin MD 800 [facility] 134 [place] [address] Phone: tel: fax: Referral ID Status Reason Start Date Expiration Date V isits Requested Visits Authorized [id number] Pending Review 02/09/2025 08/11/2026 1 1 Encounter Details Date Type Department Care Team (Late st Contact Info) Description 02/09/2025 Orders Only [facility] 800 [facility], 2nd [place] [address] Sheridan Vila RN [facility] Small cell carcinoma of right lung, unspecified part of lung (Primary Dx) Social History Tobacco [...] first t laurie in the morning (EYE-COAL TRIMMER MACHINE OPERATOR) to steady your nerves or to get rid of a hangover? 0 12/02/2024 CAGE Questionnaire Score 0 025 Utilities Answer Date Recorded In the past 12 months has [employer] gas, oil, or water [employer] threatened to shut off services in your [...] 800 [facility], 2nd [place] [address] 02/21/2025 9:20 AM EDT Office Visit [facility] 800 [facility], 2nd [place] [address] Satnam Colvin MD 800 [facility] [address] [place] [address] 02/21/2025 11:00 AM EDT Appointment [facility] 1 [address] [place] [address] 02/22/2025 2:30 PM EDT Appointment [facility] 1 [address] [place] [address] 02/23/2025 3:30 PM EDT Appointment [facility] 1 [address] [place] [address] 03/08/2025 1:00 PM EDT Office Visit [facility] [place] [address] [place] [address] Teresita Oconnell MD [address] [place] [address] 03/10/2025 2:20 PM EDT Appointment [facility] [address], 2nd [place] [address] 03/10/2025 3:45 PM EDT Appointment [facility] S Radiology [address], 1st [place] [address] 03/14/2025 11:00 AM EDT Office Visit [facility] 800 [facility], 2nd [place] [address] Satnam Colvin MD [address] [place] [address] Scheduled Orders Name Type Priority Associated Diagnoses Orde r Schedule CT Chest w IV Contrast Imaging Routine Small cell carcinoma of right lung, unspecified part of lung Expected: 03/10/2025 (Approximate), Expires: 08/13/2026 CT Abdomen Pelvis w IV Contrast Imaging Routine Small cell carcinoma of right lung, unspecified part of lung Expected: 03/10/2025 (Approximate), Expires: 08/13/2026 MR Head w and wo IV Contrast Imaging Routine Small cell carcinoma of right lung, unspecified part of lung Expected: 03/10/2025, Expires: 08/13/2026 documented as of this encounter Visit Diagnoses Diagnosis Small cell carcinoma of right lung, unspecified part of lung- Primary documented in this encounter Additional Health Concerns Infection Onset Date Last Indicated Resolved Time 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 12/16/2024 12/22/2024 Assessment Noted Time PHQ-9 Depression Total Score: 0 09/01/19 25 3:26 PM EDT A fall risk assessment has been complete d for the patient 02/02/2025 1:02 PM EDT A Body Mass Index follow-up plan has been documented for the patient 02/02/2025 2:50 PM EDT documented as of this encounter Care Teams Financial Secretary Relationship Specialty Start Date End Date Laurie Gutierrez MD [address] [place] [address] PCP - General 12/09/23 Joshua Martínez MD [address] [place] [address] Consulting Physician Radiation Oncology 09/19/24 documented as of this encounter
--- OUTSIDE RECORDS SUMMARY | 2025-02-10 13:39 | XMS_ITS ---
Author Organization [facility] Address [address] [place] [address] Care Team Providers Care Time Recorder Name Role Phone Laurie Gutierrez MD Primary Care Provider [phone] Joshua Martínez MD Unavailable Transitional Care Management Status:Closed (Closed) Start date:11/23/2024 Enrollment reason:Identified using hospital discharge data End date:12/12/2024 Close reason:Patient Readmitted Overview This episode type is for outpatient care managers enrolling patients in the [facility] Transitional Care Management program. Continued Care and Services Coordination
--- OUTSIDE RECORDS SUMMARY | 2025-02-10 13:39 | XMS_ITS | Encounter Summary ---
Author Organization [facility] Address [address] [place] [address] Care Team Providers Care Manager Center Name Role Phone Laurie Gutierrez MD Primary Care Provider [phone] Joshua Martínez MD Unavailable Encounter Details Date Type Department Care Team (Latest Contact Info) Description 02/02/2025 Travel Social History Tobacco Use Types Packs/Day [...] drink first t laurie in the morning (EYE-SPENT GRAIN DRYER) to steady your nerves or to get [...] ([facility] st Contact Info) Description 02/21/2025 8:45 AM EDT Clinical Support [facility] 800 [facility] [place] [facility], 2nd [place] [address] 02/21/2025 9:20 AM EDT Office Visit [facility] 800 [facility] [place] [facility], 2nd [place] [address] Satnam Colvin MD 800 [facility] [address] [place] [address] 02/21/2025 11:00 AM EDT Appointment [facility] 1 [address] [place] [address] 02/22/2025 2:30 PM EDT Appointment [facility] 1 [address] [place] [address] 02/23/2025 3:30 PM EDT Appointment [facility] 1 [address] [place] [address] 03/08/2025 1:00 PM EDT Office Visit [facility] [place] [address] [facility]. [address] [place] [address] Teresita Oconnell MD 800 [place] [address] 03/10/2025 2:20 PM EDT Appointment [facility] [address], 2nd [place] [address] 03/10/2025 3:45 PM EDT Appointment [facility] S Radiology 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 12/16/2024 12/22/2024 Assessment Noted Time PHQ-9 Depression Total Score: 0 09/01/19 3:26 PM EDT A fall risk assessment has been complete d for the patient 02/02/2025 1:02 PM EDT A Body Mass Index follow-up plan has been documented for the patient 02/02/2025 2:50 PM EDT documented as of this encounter Care Teams Manager Center Relationship Specialty Start Date End Date Laurie Gutierrez MD [address] [place], [place] [phone] PCP - General 12/09/23 Joshua Martínez MD [address] [address] [place] [address] Consulting Physician Radiation Oncology 09/19/24 documented as of this encounter
--- OUTSIDE RECORDS SUMMARY | 2025-02-10 13:39 | XMS_ITS | Encounter Summary ---
Author Organization [facility] Address [address] [place] [address] Care Team Providers Care Senior Counsel Commercial Name Role Phone Laurie Gutierrez MD Primary Care Provider [phone] Joshua Martínez MD Unavailable Encounter Details Date Type Department Care Team (Latest Contact Info) Description 01/31/2025 Travel Social History Tobacco Use Types Packs/Day [...] drink first t laurie in the morning (EYE-SONOSCOPE OPERATOR) to steady your nerves or to [...] Indicated 01/31/2025 9:48 AM EDT Elvin ingram [place] R * Question Answer Date of Assessment Author 1. Wish to be (Past 1 Month) No 025 9:48 AM EDT [facility] R 2. Non-Specific Active Suici radha Thoughts (Past 1 Month) No 01/31/2025 9:48 AM EDT Jerri Va enix R 6. Suicidal Behavior (Lifetime) No 9:48 AM EDT [facility] R documented as of this encounter Plan of Treatment Upcoming Encounters Date Type Department Care Team ([facility] st Contact Info) Description 02/21/2025 8:45 AM EDT Clinical Support [facility] 800 [facility], 2nd [place] [address] 02/21/2025 9:20 AM EDT Office Visit [facility] 800 [facility], 2nd [place] [address] Satnam Colvin MD 800 [facility] Nuria Degroot [facility] [address] [place] [address] 02/21/2025 11:00 AM EDT Appointment [facility] 1 [address] [place] [address] 02/22/2025 2:30 PM EDT Appointment [facility] 1 [address] [place] [address] 02/23/2025 3:30 PM EDT Appointment [facility] 1 [address] [place] [address] 03/08/2025 1:00 PM EDT Office Visit [facility] [place] [address] [place] [address] Teresita Oconnell MD [address] [place] [address] 03/10/2025 2:20 PM EDT Appointment [facility] [address], [address]nd [place] [address] 03/10/2025 3:45 PM EDT Appointment [facility] Radiology 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 12/16/2024 12/22/2024 Assessment Noted Time PHQ-9 Depression Total Score: 0 09/01/19 25 3:26 PM EDT A fall risk assessment has been complete d for the patient 01/31/2025 11:28 AM EDT A Body Mass Index follow-up plan has been documented for the patient 01/26/2025 11:42 AM EDT documented as of this encounter Care Teams Senior Counsel Commercial Relationship Specialty Start Date End Date Laurie Gutierrez MD [address] [place] [address] PCP - General 12/09/23 Joshua Martínez MD [address] [place] [address] [address] [place] [address] Consulting Physician Radiation Oncology 09/19/24 documented as of this encounter
--- OUTSIDE RECORDS SUMMARY | 2025-02-10 13:39 | XMS_ITS | Encounter Summary ---
Author Organization [facility] Address [address] [place] [address] Care Team Providers Care Electron Beam Photo Mask Technician Name Role Phone Laurie Gutierrez MD Primary Care Provider [phone] Joshua Martínez MD Unavailable Encounter Details Date Type Department Care Team (Latest Contact Info) Description 02/01/2025 Travel Social History Tobacco Use Types Packs/Day [...] drink first t laurie in the morning (EYE-FIRER MARINE) to steady your nerves or to get [...] Respiratory [address] [facility], 2nd [place] [address] 02/21/2025 9:20 AM EDT Office Visit [facility] [address] [facility], 2nd [place] [phone] Satnam Colvin MD [address] [facility] [address] [place] [address] 02/21/2025 11:00 AM EDT Appointment [facility] 1 [address] [place] [address] 02/22/2025 2:30 PM EDT Appointment [facility] 1 [address] [place] [address] 02/23/2025 3:30 PM EDT Appointment [facility] 1 [address] [place] [address] 03/08/2025 1:00 PM EDT Office Visit [facility] [facility] [address] [facility] [place] [phone] Teresita Oconnell MD [address] [place] [address] 03/10/2025 2:20 PM EDT Appointment [facility] [address], 2nd [place] [address] 03/10/2025 3:45 PM EDT Appointment [facility] S Radiology 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 12/16/2024 12/22/2024 Assessment Noted Time PHQ-9 Depression Total Score: 0 09/01/19 3:26 PM EDT A fall risk assessment has been complete d for the patient 02/01/2025 12:17 PM EDT A Body Mass Index follow-up plan has been documented for the patient 02/01/2025 4:01 PM EDT documented as of this encounter Care Teams Electron Beam Photo Mask Technician Relationship Specialty Start Date End Date Laurie Gutierrez MD [address] [place], [place] [phone] PCP - General 12/09/23 Joshua Martínez MD [address] [place] [phone] Consulting Physician Radiation Oncology 09/19/24 documented as of this encounter
--- OUTSIDE RECORDS SUMMARY | 2025-02-10 13:39 | XMS_ITS | Encounter Summary ---
Author Organization [facility] Address [address] [place] [address] Care Team Providers Care Registered Vascular Technologist (Rvt) Name Role Phone Laurie Gutierrez MD Primary Care Provider [phone] Joshua Martínez MD Unavailable Encounter Details Date Type Department Care Team (Late st Contact Info) Description 02/06/2025 Telephone [facility] Respiratory [address] [facility], 2nd [place] [phone] Satnam Colvin MD 800 [facility] [address] [place] [address] Social History Tobacco Use Types Packs/Day Years [...] drink first t laurie in the morning (EYE-HOME HEALTH CARE CASE MANAGER) to steady your nerves or to get rid of a hangover? 0 12/02/2024 CAGE Questionnaire Score 0 025 Utilities Answer Date Recorded In the past 12 months has e electric, gas, oil, or water [employer] threatened to shut off services in [...] Telephone Encounter - Sheridan Vila RN - 02/08/2025 9:14 AM EDT Appointments scheduled. Left message for patient on VM * Telephone Encounter - Sherman Bush - 02/06/2025 12:19 PM EDT Patient has concerns about treatment plan and additional infusions please call patient back to discuss documented in this encounter Plan of Treatment Upcoming Encounters Date Type Department Care Team (Late st Contact Info) Description 02/21/2025 8:45 AM EDT Clinical Support [facility] Respiratory [address] [facility], [address]nd [place] [address] 02/21/2025 9:20 AM EDT Office Visit [facility]ck [facility] Respiratory [address] [facility], [address]nd [place] [address] Satnam Colvin MD [address] [facility] [address] [place] [address] 02/21/2025 11:00 AM EDT Appointment [facility] 1 [address] [place] [address] 02/22/2025 2:30 PM EDT Appointment [facility] 1 [address] [place] [address] 02/23/2025 3:30 PM EDT Appointment [facility] 1 [address] [place] [address] 03/08/2025 1:00 PM EDT Office Visit [facility] [place] [address] [facility] [place] [address] Teresita Oconnell MD [address] [place] [address] 03/10/2025 2:20 PM EDT Appointment [facility] CT [address], [address]nd [place] [address] 03/10/2025 3:[address] [facility] S Radiology 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 12/16/2024 12/22/2024 Assessment Noted Time PHQ-9 Depression Total Score: 0 09/01/19 25 3:26 PM EDT A fall risk assessment has been complete d for the patient 02/02/2025 1:02 PM EDT A Body Mass Index follow-up plan has been documented for the patient 02/02/2025 2:50 PM EDT documented as of this encounter Care Teams Registered Vascular Technologist (Rvt) Relationship Specialty Start Date End Date Laurie Gutierrez MD [address] [place] [address] PCP - General 12/09/23 Joshua Martínez MD [address] [place] [address] Consulting Physician Radiation Oncology 09/19/24 documented as of this encounter
--- OUTSIDE RECORDS SUMMARY | 2025-02-10 13:39 | XMS_ITS | Encounter Summary ---
Author Organization [facility] Address [address] [place] [address] Care Team Providers Care Photographer Helper Name Role Phone Laurie Gutierrez MD Primary Care Provider [phone] Joshua Martínez MD Unavailable Encounter Details Date Type Department Care Team (Latest Contact Info) Description 01/17/2025 Travel Social History Tobacco Use Types Packs/Day [...] living in a prison (including now)? No 12/16/2024 CAGE ASSESSMENT Answer [...] drink first t laurie in the morning (EYE-FIXED WING AIRCRAFT FLIGHT ENGINEER) to steady your nerves or to [...] Behavior (Lifetime) No 3:35 PM EDT Deisi Paige, JOSE MARTIN documented as of this encounter Plan of Treatment Upcoming Encounters Date Type Department Care Team ([facility] st Contact Info) Description 02/21/2025 8:45 AM EDT Clinical Support [facility]ck [facility] Respiratory [address] [facility], 2nd [place] [address] 02/21/2025 9:20 AM EDT Office Visit [facility] Neck & Respiratory [address] [facility], 2nd [place] [address] Satnam Colvin MD [address] [facility] [address] [facility] [address] [place] [address] 02/21/2025 11:00 AM EDT Appointment [facility] 1 [address] [place] [address] 02/22/2025 2:30 PM EDT Appointment [facility] 1 [address] [place] [address] 02/23/2025 3:30 PM EDT Appointment [facility] 1 [address] [place] [address] 03/08/2025 1:00 PM EDT Office Visit [facility] [place] [address] [facility]. [address] [place] [address] Teresita Oconnell MD [address] [place] [address] 03/10/2025 2:20 PM EDT Appointment [facility] [address], [address]nd [place] [address] 03/10/2025 3:45 PM EDT Appointment [facility] Radiology 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 12/16/2024 12/22/2024 Assessment Noted Time PHQ-9 Depression Total Score: 0 09/01/19 3:26 PM EDT A fall risk assessment has been complete d for the patient 01/10/2025 9:02 AM EDT A Body Mass Index follow-up plan has been documented for the patient 01/05/2025 1:37 PM EDT documented as of this encounter Care Teams Photographer Helper Relationship Specialty Start Date End Date Laurie Gutierrez MD [address] [place] [address] PCP - General 12/09/23 Joshua Martínez MD [address] [place], [place] [address] [place] [phone] Consulting Physician Radiation Oncology 09/19/24 documented as of this encounter
--- OUTSIDE RECORDS SUMMARY | 2025-02-10 13:39 | XMS_ITS | Encounter Summary ---
Author Organization [facility] Address [address] [place] [address] Care Team Providers Care Before School Name Role Phone Laurie Gutierrez MD Primary Care Provider Joshua Martínez MD Unavailable Sabine Morales LPN Unavailable Unavailable Reason for Visit * Reason Comments TCM Encounter Details Date Type Department Care Team (Late st Contact Info) Description 11/25/2024 Patient Outreach [facility] [address], [address] [place] [address] Sabine Morales LPN TCM Social [...] living in a mcc (including now)? No 12/12/2024 CAGE ASSESSMENT Answer [...] drink first t laurie in the morning (EYE-PATIENT REGISTRATION MANAGER) to steady your nerves or to get rid of a hangover? 0 12/02/2024 CAGE Questionnaire Score 0 025 Utilities Answer Date Recorded In the past 12 months has th e [employer], gas, oil, or water [employer] threatened to shut off services in your [...] Date: 11/19/2024 Discharge Date: 11/22/2024 Hospital Service: [facility] Discharge Diagnosis: Atrial fibrillation with rapid [...] Respiratory [address] [facility], [address]nd [place] [address] 02/21/2025 9:20 AM EDT Office Visit [facility] Neck [facility] Respiratory [address] [facility], 2nd [place] [address] Satnam Colvin MD [address] [facility] [address] [facility] [address] [place] [address] 02/21/2025 11:00 AM EDT Appointment [facility] Infusion Clinic 1 [address] [place] [address] 02/22/2025 2:30 PM EDT Appointment [facility] 1 [address] [place] [address] 02/23/2025 3:30 PM EDT Appointment [facility] 1 [address] [place] [address] 03/08/2025 1:00 PM EDT Office Visit [facility] [place] [address] [facility] [place] [address] Teresita Oconnell MD [address] [place] [address] 03/10/2025 2:20 PM EDT Appointment [facility] CT [address], [address] [place] [address] 03/10/2025 3:45 PM EDT Appointment [facility] Radiology 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
--- OUTSIDE RECORDS SUMMARY | 2025-02-10 13:39 | XMS_ITS | Encounter Summary ---
Author Organization [facility] Address [address] [place] [address] Care Team Providers Care Granite Fabricator Name Role Phone Laurie Gutierrez MD Primary Care Provider [phone] Joshua Martínez MD Unavailable Encounter Details Date Type Department Care Team (Late st Contact Info) Description 01/16/2025 Lab Requisition [facility] Services 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) to steady your nerves or [...] Paige RN documented as of this encounter Plan of Treatment Upcoming Encounters Date Type Department Care Team (Late st Contact Info) Description 02/21/2025 8:45 AM EDT Clinical Support [facility] Respiratory [address] [facility], 2nd [place] [address] 02/21/2025 9:20 AM EDT Office Visit [facility] Neck [facility] Respiratory [address] [facility], 2nd [place] [address] Satnam Colvin MD [address] [facility] [address] [facility] [address] [place] [address] 02/21/2025 11:00 AM EDT Appointment [facility] Infusion Clinic 1 [address] [place] [address] 02/22/2025 2:30 PM EDT Appointment [facility] Infusion Clinic 1 [address] [place] [address] 02/23/2025 3:30 PM EDT Appointment [facility] 1 [address] [place] [address] 03/08/2025 1:00 PM EDT Office Visit [facility] [place] [address] [facility] [place] [address] Teresita Oconnell MD [address] [place] [address] 03/10/2025 2:20 PM EDT Appointment [facility] [address], [address]nd [place] [address] 03/10/2025 3:45 PM EDT Appointment [facility] Radiology [address], [address]st [place] [address] 03/14/2025 11:00 AM EDT Office Visit [facility] Respiratory [address] [facility], 2nd [place] [address] Satnam Colvin MD [address] [facility] [address] [facility] [address] [place] [address] documented as of this encounter Procedures Procedure Name Priority Date/Time Associated Diagnosis Comments CREATININE, PLASMA Routine 01/16/2025 11 :30 AM EDT Infection following a procedure, other surgical site, initial encounter CBC WITH AUTO DIFFERENTIAL Routine 01/16/2025 11:30 AM EDT Infection following a procedure, other surgical site, initial encounter C-REACTIVE PROTEIN, PLASMA Routine 01/16/2025 11:30 AM EDT Infection following a procedure, other surgical site, initial encounter UREA NITROGEN, PLASMA Routine 01/16/2025 11:30 AM EDT Infection following a procedure, other surgical site, initial encounter documented in this encounter Results * (ABNORMAL) CBC and Differential (01/16/2025 11:30 AM EDT) [facility] WBC Count 7.21 3.70 - 10.30 10*3/uL LAB HEMATOLOGY METHOD 01/16/2025 1:38 PM EDT [facility] RBC Count 3.01(L) 3.90 - 5.20 10*6/uL LAB HEMATOLOGY METHOD 01/16/2025 1:38 PM EDT [facility] HGB 9.6(L) 11.2 - 15.7 g/dL LAB HEMATOLOGY METHOD 01/16/2025 1:38 PM EDT [facility] HCT 30.6(L) 34.0 - 45.0 % LAB HEMATOLOGY METHOD 01/16/2025 1:38 PM EDT [facility] Platelet Count 142(L) 155 - 369 10*3/uL LAB HEMATOLOGY METHOD 01/16/2025 1:38 PM EDT [facility] MCV 102(H) 79 - 98 fL LAB HEMATOLOGY METHOD 01/16/2025 1:38 PM EDT [facility] MCH 31.9 26.0 - 32.0 pg LAB HEMATOLOGY METHOD 01/16/2025 1:38 PM EDT [facility] MCHC 31.4 30.7 - 35.5 g/dL LAB HEMATOLOGY METHOD 01/16/2025 1:38 PM EDT [facility] RDW 19.6(H) 11.5 - 14.5 % LAB HEMATOLOGY METHOD 01/16/2025 1:38 PM EDT [facility] MPV 10.3 8.8 - 12.5 fL LAB HEMATOLOGY METHOD 01/16/2025 1:38 PM EDT [facility] nRBC 0.0 <=0.0 per 100 WBCs LAB HEMATOLOGY METHOD 01/16/2025 1:38 PM EDT [facility] Differential Type Automated LAB HEMATOLOGY METHOD 01/16/2025 1:38 PM EDT [facility] Neutrophils % 72 % LAB HEMATOLOGY METHOD 01/16/2025 1:38 PM EDT [facility] Lymphocytes % 15 % LAB HEMATOLOGY METHOD 01/16/2025 1:38 PM EDT [facility] Monocytes % 8 % LAB HEMATOLOGY METHOD 01/16/2025 1:38 PM EDT [facility] Eosinophils % 4 % LAB HEMATOLOGY METHOD 01/16/2025 1:38 PM EDT [facility] Basophils % 1 % LAB HEMATOLOGY METHOD 01/16/2025 1:38 PM EDT [facility] Immature Granulocytes % 0 % LAB HEMATOLOGY METHOD 01/16/2025 1:38 PM EDT [facility] Neutrophils Absolute 5.16 1.60 - 6.10 10*3/uL LAB HEMATOLOGY METHOD 01/16/2025 1:38 PM EDT [facility] Lymphocytes Absolute 1.08(L) 1.20 - 3.90 10*3/uL LAB HEMATOLOGY METHOD 01/16/2025 1:38 PM EDT [facility] Monocytes Absolute 0.56 0.30 - 0.90 10*3/uL LAB HEMATOLOGY METHOD 01/16/2025 1:38 PM EDT [facility] Eosinophils Absolute 0.32 0.00 - 0.50 10*3/uL LAB HEMATOLOGY METHOD 01/16/2025 1:38 PM EDT [facility] Basophils Absolute 0.07 0.00 - 0.10 10*3/uL LAB HEMATOLOGY METHOD 01/16/2025 1:38 PM EDT [facility] Immature Granulocytes Absolute 0.02 0.00 - 0.06 10*3/uL LAB HEMATOLOGY METHOD 01/16/2025 1:38 PM EDT [facility] Blood Venous blood specimen / Unknown 01/16/2025 11:30 AM EDT 01/16/2025 1:35 PM EDT Narrative [facility] - 01/16/2025 1:38 PM EDT Therapeutic decision making should be based on absolute values, rather than percentages. Peewee Shearer MD LAB BLOOD ORDERABLE S Final Result [facility] [address] [place] [address] * Urea Nitrogen, Plasma (01/16/2025 11:30 AM EDT) BUN, Plasma 13 8 - 23 mg/dL 01/16/2025 1:54 PM EDT [facility] Blood Venous blood specimen / Unknown 01/16/2025 11:30 AM EDT 01/16/2025 1:35 PM EDT us Peewee Shearer MD LAB BLOOD ORDERABLE S Final Result Performing Organization Address [facility] de Phone Number [facility] [address] [place] [address] * Creatinine, plasma (01/16/2025 11:30 AM EDT) Creatinine, Plasma 0.89 0.60 - 1.10 mg/dL 01/16/2025 1:54 PM EDT [facility] eGFRcr 72.5 mL/min/1.7 3m*2 01/16/2025 1:54 PM EDT [facility] Comment:Reported eGFRcr in m L/min/1.73m2 is based the CKD-EPI 2020 equation that does not use a race coefficient. Blood Venous blood specimen / Unknown 01/16/2025 11:30 AM EDT 01/16/2025 1:35 PM EDT us Peewee Shearer MD LAB BLOOD ORDERABLE S Final Result Performing Organization Address [facility] de Phone Number [facility] [address] [place] [address] * C-reactive protein (01/16/2025 11:30 AM EDT) CRP, Plasma 4.0 <=8.0 mg/L 01/16/2025 1:54 PM EDT [facility] Blood Venous blood specimen / Unknown 01/16/2025 11:30 AM EDT 01/16/2025 1:35 PM EDT Narrative [facility] - 01/16/2025 1:54 PM EDT This CRP test is appropriate for assessment of infection, systemic inflammation and/or tissue injury. To assess cardiovascular disease risk order high sensitivity CRP (CRPH). 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 12/16/2024 12/22/2024 Assessment Noted Time PHQ-9 Depression Total Score: 0 09/01/19 3:26 PM EDT A fall risk assessment has been complete d for the patient 01/10/2025 9:02 AM EDT A Body Mass Index follow-up plan has been documented for the patient 01/05/2025 1:37 PM EDT documented as of this encounter Care Teams Granite Fabricator Relationship Specialty Start Date End Date Laurie Gutierrez MD [address] [place] [address] PCP - General 12/09/23 Joshua Martínez MD [address] [facility] [address] [place] [address] Consulting Physician Radiation Oncology 09/19/24 documented as of this encounter
--- OUTSIDE RECORDS SUMMARY | 2025-02-10 13:39 | XMS_ITS | Encounter Summary ---
Author Organization [facility] Address [address] [place] [address] Care Team Providers Care Newsstand Vendor Name Role Phone Laurie Gutierrez MD Primary Care Provider Joshua Martínez MD Unavailable Encounter Details Date Type Department Care Team (Late st Contact Info) Description 01/24/2025 Lab Requisition [facility] [address] [place] [address] Peewee Shearer MD [address] 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 0 12/02/2024 CAGE Questionnaire Score 0 025 Utilities Answer Date Recorded In the past 12 months has [employer], gas, oil, or water company threatened to [...] Team ([facility] st Contact Info) Description 02/21/2025 8:45 AM EDT Clinical Support [facility] [address] [phone] 02/21/2025 9:20 AM EDT Office Visit [facility] [address] [phone] Satnam Colvin MD 800 [facility] [address] [facility] [address] [place] [address] 02/21/2025 11:00 AM EDT Appointment [facility] [address] [place] [address] 02/22/2025 2:30 PM EDT Appointment [facility] [address] [place] [phone] 02/23/2025 3:30 PM EDT Appointment [facility] [address] [place] [phone] 03/08/2025 1:00 PM EDT Office Visit [facility] [place] [facility] [address] [place] [phone] Teresita Oconnell MD [address] [place] [address] 03/10/2025 2:20 PM EDT Appointment [facility] [address] [place] [address] 03/10/2025 3:45 PM EDT Appointment [facility] [address] [place] [phone] 03/14/2025 11:00 AM EDT Office Visit [facility] 800 [facility], [address]nd [place] [phone] aStnam Colvin MD 800 [facility] [address] [facility] [address] [place] [phone] documented as of this encounter Procedures Procedure Name Priority Date/Time Associated Diagnosis Comments CREATININE, PLASMA Routine 01/24/2025 11 :45 AM EDT Infection following a procedure, other surgical site, initial encounter 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 acute cor pulmonale (CMS/HCC) Dyspnea, unspecified Secondary malignant neoplasm of brain (CMS/HCC) CBC WITH AUTO DIFFERENTIAL Routine 01/24/2025 11:45 [...] encounter Results * (ABNORMAL) CBC and Differential (01/24/2025 11:45 AM EDT) WBC Count 8.93 3.70 - 10.30 10*3/uL LAB HEMATOLOGY METHOD 01/24/2025 3:49 PM EDT [facility] RBC Count 2.54(L) 3.90 - 5.20 10*6/uL LAB HEMATOLOGY METHOD 01/24/2025 3:49 PM EDT [facility] HGB 7.9(L) 11.2 - 15.7 g/dL LAB HEMATOLOGY METHOD 01/24/2025 3:49 PM EDT [facility] HCT 26.5(L) 34.0 - 45.0 % LAB HEMATOLOGY METHOD 01/24/2025 3:49 PM EDT [facility] Platelet Count 179 155 - 369 10*3/uL LAB HEMATOLOGY METHOD 01/24/2025 3:49 PM EDT [facility] MCV 104(H) 79 - 98 fL LAB HEMATOLOGY METHOD 01/24/2025 3:49 PM EDT [facility] MCH 31.1 26.0 - 32.0 pg LAB HEMATOLOGY METHOD 01/24/2025 3:49 PM EDT [facility] MCHC 29.8(L) 30.7 - 35.5 g/dL LAB HEMATOLOGY METHOD 01/24/2025 3:49 PM EDT [facility] RDW 19.2(H) 11.5 - 14.5 % LAB HEMATOLOGY METHOD 01/24/2025 3:49 PM EDT [facility] MPV 10.6 8.8 - 12.5 fL LAB HEMATOLOGY METHOD 01/24/2025 3:49 PM EDT [facility] nRBC 0.0 <=0.0 per 100 WBCs LAB HEMATOLOGY METHOD 01/24/2025 3:49 PM EDT [facility] Differential Type Automated LAB HEMATOLOGY METHOD 01/24/2025 3:49 PM EDT [facility] Neutrophils % 73 % LAB HEMATOLOGY METHOD 01/24/2025 3:49 PM EDT [facility] Lymphocytes % 14 % LAB HEMATOLOGY METHOD 01/24/2025 3:49 PM EDT [facility] Monocytes % 9 % LAB HEMATOLOGY METHOD 01/24/2025 3:49 PM EDT [facility] Eosinophils % 3 % LAB HEMATOLOGY METHOD 01/24/2025 3:49 PM EDT [facility] Basophils % 1 % LAB HEMATOLOGY METHOD 01/24/2025 3:49 PM EDT [facility] Immature Granulocytes % 0 % LAB HEMATOLOGY METHOD 01/24/2025 3:49 PM EDT [facility] Neutrophils Absolute 6.58(H) 1.60 - 6.10 10*3/uL LAB HEMATOLOGY METHOD 01/24/2025 3:49 PM EDT [facility] Lymphocytes Absolute 1.26 1.20 - 3.90 10*3/uL LAB HEMATOLOGY METHOD 01/24/2025 3:49 PM EDT [facility] Monocytes Absolute 0.76 0.30 - 0.90 10*3/uL LAB HEMATOLOGY METHOD 01/24/2025 3:49 PM EDT [facility] Eosinophils Absolute 0.24 0.00 - 0.50 10*3/uL LAB HEMATOLOGY METHOD 01/24/2025 3:49 PM EDT [facility] Basophils Absolute 0.06 0.00 - 0.10 10*3/uL LAB HEMATOLOGY METHOD 01/24/2025 3:49 PM EDT [facility] Immature Granulocytes Absolute 0.03 0.00 - 0.06 10*3/uL LAB HEMATOLOGY METHOD 01/24/2025 3:49 PM EDT [facility] Blood Venous blood specimen / Unknown 01/24/2025 11:45 AM EDT 01/24/2025 3:07 PM EDT [facility] - 01/24/2025 3:49 PM EDT Therapeutic decision making should be based on absolute values, rather than percentages. Peewee Shearer MD LAB BLOOD ORDERABLE S Final Result [facility] [address] [place] [address] * Urea Nitrogen, Plasma (01/24/2025 11:45 AM EDT) BUN, Plasma 11 8 - 23 mg/dL 01/24/2025 3:49 PM EDT [facility] Blood Venous blood specimen / Unknown 01/24/2025 11:45 AM EDT 01/24/2025 3:07 PM EDT Peewee Shearer MD LAB BLOOD ORDERABLE S Final Result Performing Organization Address [facility] Co de Phone Number [facility] [address] [place] [address] * Creatinine, plasma (01/24/2025 11:45 AM EDT) Creatinine, Plasma 0.82 0.60 - 1.10 mg/dL 01/24/2025 3:49 PM EDT [facility] eGFRcr 80.0 mL/min/1.7 3m*2 01/24/2025 3:49 PM EDT [facility] Comment:Reported eGFRcr in m L/min/1.73m2 is based the CKD-EPI 2020 equation that does not use a race coefficient. Blood Venous blood specimen / Unknown 01/24/2025 11:45 AM EDT 01/24/2025 3:07 PM EDT Peewee Shearer MD LAB BLOOD ORDERABLE S Final Result [facility] [address] [place] [address] * C-reactive protein (01/24/2025 11:45 AM EDT) CRP, Plasma 4.7 <=8.0 mg/L 01/24/2025 3:49 PM EDT [facility] Blood Venous blood specimen / Unknown 01/24/2025 11:45 AM EDT 01/24/2025 3:07 PM EDT Narrative [facility] - 01/24/2025 3:49 PM EDT This CRP test is appropriate for assessment of infection, systemic inflammation and/or tissue injury. To assess cardiovascular disease risk order high sensitivity CRP (CRPH). 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 12/16/2024 12/22/2024 Assessment Noted Time PHQ-9 Depression Total Score: 0 09/01/19 3:26 PM EDT A fall risk assessment has been complete d for the patient 01/10/2025 9:02 AM EDT A Body Mass Index follow-up plan has been documented for the patient 01/05/2025 1:37 PM EDT documented as of this encounter Care Teams Newsstand Vendor Relationship Specialty Start Date End Date Laurie Gutierrez MD [address] [place] [id number] PCP - General 12/09/23 Joshua Martínez MD [address] [phone] Consulting Physician Radiation Oncology 09/19/24 documented as of this encounter
--- OUTSIDE RECORDS SUMMARY | 2025-02-10 13:40 | XMS_ITS | Patient Health Record ---
Author Organization [facility] [place] Address [address] [place] [address] [place] [address] Care Team Providers Care Environmental Director Name Role Phone TRAY CARRERA Unavailable [phone] Tray Carrera MD Unavailable Unavailable REAL SAVAGE Unavailable [phone] Yamilet Coleman Unavailable [phone] Justina Beasley Unavailable [phone] Catherine Vidal Unavailable [phone] Allergies Allergen (clinical drug ingredient) Drug/Non Drug Allergy documented on EMR Reaction Allergy Type Onset Date Status Keflex Unknown Drug Allergy Active lisinopril lisinopril Unknown Drug Allergy Activ e meloxicam meloxicam Unknown Drug Allergy Active Results Component Value Reference Range Notes Urinalysis, Complete Reviewed date:09/26/2024 10:10:03 AM Interpretation: Performing Lab: Notes/Report: Specific [place] 1.015 pH 6 Urine-Color YELLOW Appearance CLEAR WBC Esterase NEG Protein NEG Glucose 3+ Ketones NEG Occult Blood NEG Bilirubin NEG Urobilinogen,Semi-Qn 3.5 Nitrite, Urine NEG Comp. Metabolic Panel (14) Reviewed date:02/26/2024 10:41:06 AM Interpretation: Performing Lab:[facility] [place], [address] [facility], [place], Phone - [phone], Director - Gabe Notes/Report: Glucose 108 70-99 [...] io Reviewed date:02/26/2024 10:41:23 AM Interpretation: Performing Lab:[facility] [place], [address] [facility], Phone - [phone], Director - [facility] Notes/Report: Cholesterol, Total 134 100-199 mg/dL Triglycerides 71 0-149 mg/dL HDL Cholesterol 56 >39 mg/dL VLDL Cholesterol Luis 14 5-40 mg/dL LDL Chol Calc ([facility]) 64 0-99 mg/dL LDL/HDL Ratio 1.1 0.0-3.2 ratio LDL/HDL Ratio Men Women 1/2 Avg.Risk 1.0 1.5 Avg.Risk 3.6 3.2 2X Avg.Risk 6.2 5.0 3X Avg.Risk 8.0 6.1 Vitamin D, 25-Hydroxy Reviewed date:02/26/2024 10:41:28 AM Interpretation: Performing Lab:[facility], [address] [facility], Phone - [phone], Director - [facility] Notes/Report: Vitamin D, 25-Hydroxy 33.8 30.0-100.0 ng/mL Vitamin D deficiency has been defined by the [place] of [employer] and an Endocrine Society practice guideline as a level of serum 25-OH vitamin D less than 20 ng/mL (1,2). The Endocrine Society went on to further define vitamin D insufficiency as a level between 21 and 29 ng/mL (2). 1. IOM ([place] of [employer]). 2010. Dietary reference intakes for calcium and D. Prabhakar [place]: The National Academies Press. 2. Lawrence MF, Yusuf MULLINS, Pablito ONEAL, et al. Evaluation, treatment, and prevention of vitamin D deficiency: an Endocrine Society clinical practice guideline. JCEM. 2010; 96(7):1911-30. CBC With Differential/Platel et Reviewed date:02/26/2024 10:42:12 AM Interpretation: Performing Lab[facility], [address] [facility], Phone - [phone], Director - Gabe Notes/Report: WBC 7.5 3.4-10.8 [...] TSH Reviewed date:02/26/2024 10:41:37 AM Interpretation: Performing Lab:[facility], [address] [facility], Phone - [phone], Director - Gabe Notes/Report: TSH 2.980 0.450-4.500 uIU/mL Urinalysis, Complete Reviewed date:02/26/2024 10:42:26 AM Interpretation: Performing Lab:[facility], [address] [facility], Phone - [phone], Director - Gabe Notes/Report: Specific [place] 1.028 1.005-1.030 pH 6.5 5.0-7.5 Urine-Color Yellow [...] (Random) Reviewed date:02/26/2024 10:42:18 AM Interpretation: Performing Lab:[facility] [place], [address] [place] [address], Phone - [phone], Director - [facility] Notes/Report: Creatinine, Urine 67.9 Not Estab. mg/dL Protein,Total,Urine 9.1 Not Estab. mg/dL Protein/Creat Ratio 134 0-200 mg/g creat Magnesium, Serum Reviewed date:02/26/2024 10:41:42 AM Interpretation: Performing Lab:[facility] [address], Phone - [phone], Director - [facility] Notes/Report: Magnesium 1.8 1.6-2.3 mg/dL Vitamin B12 Reviewed date:02/26/2024 10:41:32 AM Interpretation: Performing Lab:[facility] [address], Phone - [phone], Director - [facility] Notes/Report: Vitamin B12 [phone] pg/mL Hemoglobin A1c Reviewed date:02/26/2024 10:41:10 AM Interpretation: Performing Lab:[facility] [address], Phone - [phone], Director - [facility] Notes/Report: Hemoglobin A1c 6.3 4.8-5.6 % . Prediabetes: 5.7 - 6.4 Diabetes: >6.4 Glycemic control for adults with diabetes: <7.0 Uric Acid, Serum Reviewed date:02/26/2024 10:41:18 AM Interpretation: Performing Lab:[facility], [address] [place] [address], Phone - [phone], Director - Gabe Notes/Report: Uric Acid 5.0 3.0-7.2 mg/dL Therapeutic ta rget for gout patients: <6.0 Electrocardiogram (EKG) Reviewed date:08/14/2024 05:14:30 PM Interpretation: Performing Lab: Notes/Report: Vitamin B12 and Folate Reviewed date:07/11/2024 08:42:58 AM Interpretation: Performing Lab:[facility] [place], [address] [place] [address], Phone - [phone], Director - [facility] Notes/Report: Vitamin B12 [phone] pg/mL Folate (Folic Acid), Serum 9.0 >3.0 ng/mL A serum folate concentration of less than 3.1 ng/mL is considered to represent clinical deficiency. Urinalysis, Routine Reviewed date:03/21/2024 12:29:01 PM Interpretation: Performing Lab: Notes/Report: Urine-Color YELLOW Appearance DARK Specific [place] 1.015 pH 6.0 Glucose 3+ Protein NEG Occult Blood NEG Bilirubin NEG Urobilinogen,Semi-Qn NEG Nitrite, Urine NEG Ketones NEG WBC Esterase NEG Comp. Metabolic Panel (14) Reviewed date:12/16/2024 08:50:26 AM Interpretation: Performing Lab:[facility], [address] [place] [address], Phone - [phone], Director - [facility] Notes/Report: Glucose 186 70-99 mg/dL BUN 20 [...] 0-40 IU/L ALT (SGPT) 9 0-32 IU/L TSH Reviewed date:12/16/2024 08:51:26 AM Interpretation: Performing Lab:[facility], Phone - [phone], Director - [facility] Notes/Report: TSH 2.610 0.450-4.500 uIU/mL Magnesium, Serum Reviewed date:12/16/2024 08:51:30 AM Interpretation: Performing Lab:[facility], Phone - [phone], Director - [facility] Notes/Report: Magnesium 1.0 1.6-2.3 mg/dL Comp. Metabolic Panel (14) Reviewed date:07/11/2024 08:43:11 AM Interpretation: Performing Lab:[facility], Phone - [phone], Director - [facility] Notes/Report: Glucose 139 70-99 mg/dL BUN 14 [...] io Reviewed date:07/11/2024 08:43:28 AM Interpretation: Performing Lab:[address], Phone - [phone], Director - [facility] Notes/Report: Cholesterol, Total 137 100-199 mg/dL Triglycerides 98 0-149 mg/dL HDL Cholesterol 51 >39 mg/dL VLDL Cholesterol Luis 18 5-40 mg/dL LDL Chol Calc ([facility]) 68 0-99 mg/dL LDL/HDL Ratio 1.3 0.0-3.2 ratio LDL/HDL Ratio Men Women 1/2 Avg.Risk 1.0 1.5 Avg.Risk 3.6 3.2 2X Avg.Risk 6.2 5.0 3X Avg.Risk 8.0 6.1 Microalb/Creat Ratio, Randm Ur Reviewed date:07/11/2024 08:42:54 AM Interpretation: Performing Lab:[facility] [place] Phone - [phone], Director - [facility] Notes/Report: Albumin, Urine <3.0 Not Estab. ug/mL Alb/Creat Ratio <5 0-29 mg/g creat Normal: 0 - 29 Moderately increased: 30 - 300 Severely increased: >300 Vitamin D, 25-Hydroxy Reviewed date:07/11/2024 08:43:34 AM Interpretation: Performing Lab:[facility] [place] Phone - [phone], Director - [facility] Notes/Report: Vitamin D, 25-Hydroxy 31.8 30.0-100.0 ng/mL Vitamin D deficiency has been defined by the [place] of [place] and an Endocrine Society practice guideline as a level of serum 25-OH vitamin D less than 20 ng/mL (1,2). The Endocrine Society went on to further define vitamin D insufficiency as a level between 21 and 29 ng/mL (2). 1. IOM ([place] of [place]). 2010. Dietary reference intakes for calcium and D. Prabh[place]: The National Academies Press. 2. Lawrence MF, Yusuf [place], Pablito ONEAL, et al. Evaluation, treatment, and prevention of vitamin D deficiency: an Endocrine Society clinical practice guideline. JCEM. 2010; 96(7):1911-30. CBC With Differential/Platel et Reviewed date:07/11/2024 08:43:54 AM Interpretation: Performing Lab:[facility] [place] Phone - [phone], Director - Jonny Notes/Report: WBC 7.5 3.4-10.8 x10E3/uL RBC 3.81 [...] TSH Reviewed date:07/11/2024 08:43:39 AM Interpretation: Performing Lab:[facility] [place], [address] [facility], Phone - [phone], Director - [facility] Notes/Report: TSH 2.140 0.450-4.500 uIU/mL Urinalysis, Complete Reviewed date:07/11/2024 08:44:12 AM Interpretation: Performing Lab:[facility] [place], [address] [facility], Phone - [phone], Director - [facility] Notes/Report: Specific [place] >=1.030 1.005-1.030 pH 5.5 5.0-7.5 Urine-Color Yellow [...] (Random) Reviewed date:07/11/2024 08:44:02 AM Interpretation: Performing Lab:[facility] [place], [address] [place] [address], Phone - [phone], Director - [facility] Notes/Report: Creatinine, Urine 58.6 Not Estab. mg/dL Protein,Total,Urine 12.6 Not Estab. mg/dL Protein/Creat Ratio 215 0-200 mg/g creat Magnesium, Serum Reviewed date:07/11/2024 08:43:44 AM Interpretation: Performing Lab:[facility] [place], [address] [place] [address], Phone - [phone], Director - [facility] Notes/Report: Magnesium 1.6 1.6-2.3 mg/dL Hemoglobin A1c Reviewed date:07/11/2024 08:43:16 AM Interpretation: Performing Lab:[facility] [place], [address] [place] [address], Phone - [phone], Director - [facility] Notes/Report: Hemoglobin A1c 6.6 4.8-5.6 % . Prediabetes: 5.7 - 6.4 Diabetes: >6.4 Glycemic control for adults with diabetes: <7.0 Reason For Referral Reason Samson Best M.D. Orthopaedic & Spine Surgery at [facility] orthopedic Diagnosis 1 Low back pain, unspe cified (M54.50) Referral Organization [facility] [place] Referring Provider First Name Justina Referring Provider Last Name Ramos Referring Provider Speciality Nurse Prac titioner Referred Provider deepa gillette Referred Provider Specialty Orthopedic S urgery General Notes JANNETH MORALES 08/26 10:34:29 AM > CARMEN COREAS DEBBIE 09/13/2024 04:05:27 PM > PT NOTIFIED BY ORTHO Referral Priority Urgent Referral Appointment Date 09/14/2024 Reason PT/OT and home healt h , starting chemo Diagnosis 1 Malignant neoplasm o f unspecified part of unspecified bronchus or lung (C34.90) Referral Organization [facility] [place] Referring Provider First Name Yamilet Referring Provider Last Name Jared Referring Provider Speciality Physician Equipment Maintenance Technician Referred Provider Home Health 2, Lula sis Referred Provider Specialty Other Medica l Care General Notes ZHANGGLJANNETH Molina 10/04 12:09:51 PM > FAXED Referral Priority Urgent Reason home health, PT, OT Diagnosis 1 Pneumonia, unspecifi ed organism (J18.9) Referral Organization [facility] [place] Referring Provider First Name Yamilet Referring Provider Last Name Coleman Referring Provider Speciality Physician Equipment Maintenance Technician Referred Provider Home Health 2, Amedy sis Referred Provider Specialty Other Medica l Care General Notes JANNETH MORALES 10/28 01:52:00 PM > FAXED Referral Priority Routine Reason home health or palla itive care [facility]. Diagnosis 1 Cellulitis of left l ower extremity (L03.116) Referral Organization [facility] Referring Provider First Name REAL Referring Provider Last Name JANETTE Referring Provider Speciality Nurse Prac titioner Referred Provider Specialty Other Medica l Care General Notes JANNETH MORALES 12/01 12:10:22 PM > [facility] P: [phone] F: [phone] (FAXED) Referral Priority Routine Diagnosis 1 Cellulitis of left l ower extremity (L03.116) Diagnosis 2 Malignant neoplasm o f unspecified part of unspecified bronchus or lung (C34.90) Diagnosis 3 COPD without exacerb ation (J44.9) Diagnosis 4 Weakness generalized (R53.1) Diagnosis 5 Pneumonia, unspecifi ed organism (J18.9) Referral Organization [facility] Referring Provider First Name Yamilet Referring Provider Last Name Coleman Referring Provider Speciality Physician Equipment Maintenance Technician Referred Provider Specialty Palliative c are physician General Notes JANNETH MORALES 12/15 04:07:50 PM > [facility] P: [phone] F: [phone] (FAXED), JANNETH MORALES 12/20/2024 04:08:27 PM > NEW FAX # [phone] DEBBIE 12/23/2024 10:08:07 AM > DOMINIC GALLEGOS IN PALLIATIVE DID NOT RECEIVE REFAXED TODAY. B - ( DO NOT SERVICE THAT COUNTY. CARMEN Floyd DEBBIE 02/06/2025 08:55:43 AM > [facility] DOES NOT PROVIDE SERVICES, [facility] DO NOT DO PALLIATAIVE IN THAT [facility]. Referral Priority Routine Medications Medication SIG (Take, Route, Frequency, Duration) Notes Start Date End Date Status FLUoxetine HCl 40 mg TAKE 1 CAPSULE 1 TI ME EACH DAY; Duration: 90 Active Insulin Lispro 100 UNIT/ML inject 15 [...] Vit ro daily; Duration: 30 days Active metFORMIN HCl 1000 MG 1 [...] Once a day; Duration: 30 days Active Dexcom G7 Sensor - as directed 09/26/2024 Active Triamterene-HCTZ 37.5-25 MG TAKE 1 TABLET 1 TIME EACH DAY IN THE MORNING; Duration: 90 Active Insulin Glargine-yfgn 100 UNIT/ML inject 20 units under the skin Subcutaneous nightly Active Cyproheptadine HCl 4 MG 1 tablet Orally Twice a day; Duration: 30 days 01/03/2025 Active hydrOXYzine HCl 25 MG 1 tablet as needed Orally three times a day; Duration: 30 days Active Vitamin B-12 ER 1000 MCG TAKE 1 TABLET 1 TIME EACH DAY; Duration: 90 Active Carvedilol 25 mg TAKE 1 TABLET 2 TIME S EACH DAY; Duration: 30 Active Cetirizine HCl 10 mg TAKE 1 TABLET 1 AURELIA E EACH DAY; Duration: 90 Active Xarelto 20 mg TAKE 1 TABLET 1 TIME EACH DAY WITH FOOD; Duration: 30 Active Magnesium Oxide 400 MG 1 tablet with citlali d Orally twice a day 10/20/2024 Active Melatonin Active Compazine Active tiZANidine HCl 2 MG 1 tablet at bedtime as needed Orally Once a day; Duration: 10 days 08/23/2024 Active Acetaminophen 325 MG 2 tablets Orally every 6 hrs 11/24/2024 Active Dexcom G6 Transmitter - as directed; Duration: 90 days Active Nystatin 733226 UNIT/ML swish and swallo w 5mL Mouth/Throat Four times a day for 39 doses 10/20/2024 Active Dexcom G7 Clipper Automatic - as directed 09/26/2024 Active Ondansetron 8 MG 1 tablet on the tongue and allow to dissolve as needed Orally every 8 hours Active Ferrous Sulfate 325 (65 Fe) MG 1 tablet Orally once a day; Duration: 30 days 08/23/2024 Active Ofloxacin 0.3 % 5 drops into affecte d ear right ear Otic Once a day; Duration: 7 days 11/24/2024 Active Dexcom G6 Clipper Automatic - as directed 02/12/2024 Active Fluconazole 200 MG 1 tablet Orally daily; Duration: 7 days 11/24/2024 Active Protonix 40 MG 1 tablet Orally Once a day; Duration: 90 days Active Azithromycin 250 MG take 2 tablets the first day then 1 daily Orally daily; Duration: 5 days 10/21/2024 Not-Taking Cyanocobalamin ER 1000 MCG 1 tablet Orally Once a day 11/24/2024 Active Benzonatate 100 MG 1 capsule as needed Orally Three times a day; Duration: 30 days 07/08/2024 Active Jardiance 25 mg TAKE 1 TABLET 1 TIME EACH DAY; Duration: 90 Active Vitamin D-[address] 25 MCG (1000 UT) 1 tablet Orally Once a day Active Benzonatate 100 MG 1 capsule as needed Orally Three times a day; Duration: 15 days Not-Taking Gabapentin 600 MG 1 capsule Orally 4 times a day; Duration: 28 days oncology 12/07/2023 Active dexAMETHasone 2 MG 1 tablet Orally twic e a day Not-Taking Atorvastatin Calcium 40 mg TAKE 1 TABLET 1 TIME EACH DAY; Duration: 90 Active Immunizations Vaccine Route Administration Date Status [...] Hyperglycemia due to type 2 diabetes mellitus (914447217236851) Type 2 diabetes mellitus with hyperglycemia (E11.65) Active confirmed Ricky-Bi n Problem Type II diabetes mellitus without complication (433653522) Type 2 diabetes mellitus without complications (E11.9) Active confirmed Ricky-Bi n Problem Mixed hyperlipidemia (216638387) Mixed hyperlipidemia (E78.2) Active confirmed Ricky-Bi n Problem Essential hypertension (81128767) Essential (primary) hypertension (I10) Active confirmed Ricky-Bi n Problem Congenital single renal cyst (3779864940162) Congenital single renal cyst (Q61.01) 016 Active confirmed Ricky-Bi n Problem Malignant tumor of lung (038645005) Malignant neoplasm of unspecified part of unspecified bronchus or lung (C34.90) Active confirmed Problem Anemia (697012348) Anemia, unspe cified (D64.9) Active confirmed Problem Hypomagnesemia (408538728) Hypomagnesemia (E83.42) Active confirmed Problem Disorder of urinary bladder (28931848) Other specified disorders of bladder (N32.89) Active confirmed Problem Abnormal uterine bleeding (37180200559091) Abnormal uterine and vaginal bleeding, unspecified (N93.9) Active confirmed Problem Congenital renal cyst (603177083616720) Congenital multiple renal cysts (Q61.02) Active confirmed Problem Nausea (659958215) Nausea (R11.0) Active confir med Problem Body mass index 40+ - severely obese (571935902) Body mass index (BMI) 45.0-49.9, adult (Z68.42) Active confirmed Problem Vitamin D deficiency (60562530) Vitamin D deficiency (E55.9) Active confirmed Problem Neuropathy (838202786) Neuropathy (G62.9) Active confirmed Problem Anxiety (88901722) Anxiety (F41.9) Active confi rmed Problem Chronic kidney disease stage 2 (939542439) Chronic kidney disease (CKD), stage II (mild) (N18.2) Active confirmed Problem Gastroesophageal reflux disease without esophagitis (802227915) Gastroesophageal reflux disease without esophagitis (K21.9) Active confirmed Problem Allergic rhinitis (84715365) Allergic rhinitis (J30.9) Active confirmed Problem Allergic rhinitis (68494548) Acute allergic rhinitis, unspecified seasonality, unspecified trigger (J30.9) Active confirmed Problem Restless legs (61150082) Restless leg (G25.81) Active confirmed Problem Patient immunocompromised (848986674) Immunocompromised patient (D84.9) Active confirmed Problem Diabetes mellitus type 2 (12811355) Diabetes mellitus type 2, uncontrolled (E11.65) Active confirmed Problem Incontinence (95758895) Incontinence in female (R32) Active confirmed Problem Acute exacerbation of chronic obstructive airways disease (319134935) COPD exacerbation (J44.1) Active confirmed Problem Chronic obstructive lung disease (09184641) COPD without exacerbation (J44.9) Active confirmed Problem Irritable bowel syndrome (12740386) Irritable bowel syndrome, unspecified type (K58.9) Active confirmed Problem Tobacco dependence (30184101) Tobacco dependence (F17.200) Active confirmed Problem Vertebrogenic low back pain (986714953565470449 ) Vertebrogenic low back pain (M54.51) Active [...] Provider Diagnosis [facility] [place] [address] 02/25/2024 Yamilet Coleman Annual physical exam Z00.00 [...] deficiency E55.9 [facility] [place] [address] 03/21/2024 Yamilet Coleman COVID-19 U07.1 ; Dys uria R30.0 ; Yeast infection B37.9 ; Vitamin D deficiency E55.9 ; Gastroesophageal reflux disease without esophagitis K21.9 ; Type 2 diabetes mellitus with hyperglycemia E11.65 and COPD without exacerbation J44.9 [facility] [place] [address] 03/28/2024 Yamilet Coleman Acute frontal sinusi tis, unspecified J01.10 and Acute bacterial conjunctivitis of right eye H10.31 [facility] [place] [address] 04/27/2024 Yamilet Coleman Type 2 diabetes mo itus with hyperglycemia E11.65 ; COPD without exacerbation J44.9 ; Congenital multiple renal cysts Q61.02 ; Gastroesophageal reflux disease without esophagitis K21.9 ; Neuropathy G62.9 ; Malignant neoplasm of unspecified part of unspecified bronchus or lung C34.90 ; Mixed hyperlipidemia E78.2 ; Allergic rhinitis J30.9 and Vitamin D deficiency E55.9 [facility] [place] [address] 05/16/2024 Yamilet Coleman Type 2 diabetes mo [...] N18.2 and Fatigue, unspecified type R53.83 [facility] [place] [address] 07/08/2024 Yamilet Coleman Type 2 diabetes mo [...] and Fatigue, unspecified type R53.83 [facility] [place] [place] [address] 08/05/2024 Catherine Vidal Acute cough R05.1 ; Pneumonia, unspecified organism J18.9 ; COPD without exacerbation J44.9 and Malignant neoplasm of unspecified part of unspecified bronchus or lung C34.90 [facility] [place] [address] 08/12/2024 Catherine Vidal Chest pain at rest R 07.9 ; Essential (primary) hypertension I10 ; COPD without exacerbation J44.9 and Chronic kidney disease (CKD), stage II (mild) N18.2 [facility] [place] [address] 08/23/2024 Justina Ramos Low back pain, unspecified M54.50 ; Restless leg G25.81 and Anemia, unspecified D64.9 [facility] [place] [address] 09/26/2024 Yamilet Coleman Type 2 diabetes mo [...] (mild) N18.2 [facility] [place] [address] 09/29/2024 Yamilet Coleman Pneumonia, unspecifi ed organism J18.9 ; Malignant neoplasm of unspecified part of unspecified bronchus or lung C34.90 ; Acute cough R05.1 ; Weakness generalized R53.1 ; COPD without exacerbation J44.9 and Anxiety F41.9 [facility] [place] [address] 10/21/2024 Yamilet Coleman Pneumonia, unspecifi ed organism J18.9 ; Malignant neoplasm of unspecified part of unspecified bronchus or lung C34.90 ; Essential (primary) hypertension I10 ; Acute cough R05.1 ; Weakness generalized R53.1 ; COPD without exacerbation J44.9 and Anxiety F41.9 [facility] [place] [address] 11/24/2024 REAL HIGHLEY Cellulitis of left l ower extremity L03.116 ; Yeast infection B37.9 ; Type 2 diabetes mellitus with hyperglycemia E11.65 ; Cellulitis of right external ear H60.11 and Immunocompromised patient D84.9 [facility] [place] [address] 12/15/2024 Yamilet Coleman Malignant neoplasm o f unspecified part of unspecified bronchus or lung C34.90 ; Pneumonia, unspecified organism J18.9 ; Essential (primary) hypertension I10 ; Acute cough R05.1 ; Weakness generalized R53.1 ; COPD without exacerbation J44.9 and Anxiety F41.9 [facility] [place] [address] 02/11/2024 Yamilet Berry [facility] [place] [address] [place] [address] 02/12/2024 Yamilet Jared Type 2 diabetes mo itus with hyperglycemia E11.65 [facility] [place] [address] [place], [place] [id number] 02/16/2024 TRAY DASHROS [facility] [place] [address] [place] [address] 03/04/2024 TRAY CARRERA Anxiety F41.9 [facility] [place] [address] [place] [address] 03/21/2024 Yamilet Coleman [facility] [place] [address] [place] [address] 03/21/2024 Yamilet Coleman [facility] [place] [address] [place] [address] 03/21/2024 Yamilet Coleman [facility] [place] [address] [place] [address] 04/05/2024 Yamilet Coleman Gastroesophageal ref lux disease without esophagitis K21.9 and COPD without exacerbation J44.9 [facility] [place] [address] [place] [address] 05/06/2024 TRAY CARRERA Type 2 diabetes mo itus with hyperglycemia E11.65 [facility] [place] [address], [place] [id number] 05/10/2024 TRAY CARRERA [facility] [place] [address] [place] [address] 06/03/2024 Yamilet Coleman Type 2 diabetes mo itus with hyperglycemia E11.65 [facility] [place] [address] [place] [address] 07/04/2024 Yamilet Coleman [facility] [place] [address] [place] [address] 07/04/2024 Yamilet Coleman Yeast infection B37. 9 and Type 2 diabetes mellitus with hyperglycemia E11.65 [facility] [place] [address] [place] [address] 08/02/2024 Yamilet Coleman [facility] [place] [address] [place] [address] 09/28/2024 Yamilet Coleman [facility] [place] [address] [place] [address] 10/20/2024 REYinKIMBERLEYREGICarolyn DASHROS [facility] [place] [address] [place] [address] 12/29/2024 REYinBARBIE EKTAROS Restless leg G25.81 [facility] [place] [address] [place] [address] 01/02/2025 Yamilet Coleman [facility] [place] [address] [place] [address] 02/10/2025 REYinKIMBERLEYREGIA EKTAROS Assessments Encounter Date Diagnosis (ICD Code) Assessment Notes Treatment Notes Treatment Clinical Notes Section Notes 02/12/2024 Type 2 diabetes mellitus with hyperglycemia [...] - R07.9) EKG-normal sinus rhythm Pt to [facility] cariologist's office about cp. 09/29/2024 Malignant [...] diabetes mellitus with hyperglycemia (ICD-10 - E11.65) [facility] [place] [facility] [place] aic 6.6 in -202410/21/2024 Essential [...] Ricky-Bin stable will get labs done today 02/25/2024 Mixed hyperlipidemia (ICD-10 - E78.2) [facility]-Bin [...] Appt Details Provider Name:Yamilet Brown Esteban heath, 02/27/2025 10:30:00 AM, [address], [place], [address], Insurance Providers Payer Name Payer Address Payer Phone Subscriber Number Group Number Insured Name Patient Relationship to Insured Coverage Start Date Coverage End Date [employer] -[place] [id number] [place], [place] [id number] [phone] [id number] Teresa Urbina Self - patient is the insured Medical (General) History Medical History History ICD Code Hypertension (Ricky)High Cholesterol (Ricky) Arthritis (Ricky)Diabetes (Ricky) Surgical History Surgery Date(Month/Year) No Surgeries As Of Todays Date Hospitalization History Reason Date(Month/Year) Pneumonia 06/2017
--- OUTSIDE RECORDS SUMMARY | 2025-02-10 13:41 | XMS_ITS | Data Portability ---
Author Organization MD - [facility] ADMIN Address [address] [place] [id number] Care Team Providers Care Sound Art Instructor Name Role Phone SATYA GOTTI Primary [...] Lab CMP, serum or plasma 2024 025 [email or web address] [facility] (Add On Labs Only), [address] [place] [address] [place], [address], 5 07:48:27 vitamin B12 + folate, serum or blood 2023 024 [facility] (Add On Labs Only), [address] [place] [address] [place], [address], 4 08:42:43 mma (methylmal onic acid), serum 2023 024 [facility] (Add On Labs Only), [address] [facility] [place], [address], 4 08:42:43 CMP, serum or plasma 2023 024 [facility] (Add On Labs Only), [address] [facility] [place] [address], 4 08:42:43 CBC w/ auto diff 2023 024 [facility] (Add On Labs Only), [address] [facility] [place] [address], 4 08:42:43 TSH + free T4, serum 2023 024 [facility] (Lab Registration) , [address] [facility] [place] [address], 4 08:42:43 vitamin D, 25-hydroxy , total, serum 2023 024 [facility] (Lab Registration) , [address] [place] [address] [place], [address], 4 12:01:45 Referral None recorded. Procedures None recorded. Surgeries None recorded. Imaging CT, chest, w/ contrast 2024 025 [facility] (Central Scheduling), [address] [place] [address] [place], [address], 5 04:19:09 CT, chest + abdomen + pelvis, w/ contrast - iv contrast only 2024 025 [facility] (Central Scheduling), [address] [place] [address] [place] [address], 5 13:32:07 PET-CT, skull base to mid-thigh scan 2023 024 [facility] (Central Scheduling), [address] [place] [address] [place], [address], 4 11:50:43 Medication Orders doxycyclin e hyclate 100 mg capsule 2024 025 [employer], [address] [place] [address], [id number], 5 17:24:09 gabapentin 600 mg tablet 2023 024 [employer], [address] [place] [address], [id number], 4 14:21:53 Combivent Respimat 20 mcg-100 mcg/actuat ion solution for inhalation 2023 024 [email or web address], [address] [place] [address], [id number], 4 16:26:32 Symbicort 160 mcg-4.5 mcg/actuat ion HFA aerosol inhaler 2023 024 [employer], [address] [place] [address], [id number], 4 13:46:31 Patient TargetsNo targets recorded. Patient InstructionsNo instructions recorded. Reason for Referral None Reported. Results Created Date Observation Date Name Description Value Unit Range Abnormal Flag Note LastModifiedBy Organization Detail LastModifiedTime 10/19/1910/19/2023 CBC W/ AUTO DIFF WBC 8.22 K/uL 4.5-11 .5 Not Available [facility] (Pre-Op Clinic) [address] [place] [address] [place], [address], 10/19/2023 08:46:17 10/19/1910/19/2023 CBC W/ AUTO DIFF RBC 3.05 M/uL 4.0-5. 4 low Not Available [facility] (Pre-Op Clinic) [address] [place] [address] [place], [address], 10/19/2023 08:46:17 10/19/19 24 10/19/2023 CBC W/ AUTO DIFF HGB 9.8 g/dL 12.0-1 5.0 low Not Available [facility] (Pre-Op Clinic) [address] [place] [address] [place], [address], 10/19/2023 08:46:17 10/19/19 24 10/19/2023 CBC W/ AUTO DIFF HCT 30.7 % 35-49 low Not Available [facility] (Pre-Op Clinic) [address] [place] [address] [place], [address], 10/19/2023 08:46:17 10/19/19 24 10/19/2023 CBC W/ AUTO DIFF MCV 100.7 fL 80.0-1 00.0 high Not Available [facility] (Pre-Op [facility]) [address] [place] [address] [place], [address], 10/19/2023 08:46:17 10/19/19 24 10/19/2023 CBC W/ AUTO DIFF MCH 32.1 pg 26.0-3 2.0 high Not Available [facility] (Pre-Op [facility]) [address] [place] [address] [place], [address], 10/19/2023 08:46:17 10/19/19 24 10/19/2023 CBC W/ AUTO DIFF MCHC 31.9 g/dL 32.0-3 6.0 low Not Available [facility] (Pre-Op [facility]) [address] [place] [address] [place], [address], 10/19/2023 08:46:17 10/19/19 24 10/19/2023 CBC W/ AUTO DIFF RDW 15.9 % 11.5-1 4.5 high Not Available [facility] (Pre[facility]Op [facility]) [address] [place] [address] [place], [address], 10/19/2023 08:46:17 10/19/19 24 10/19/2023 CBC W/ AUTO DIFF platelet count 250 K/uL 142-42 4 Not Available [facility] (Pre[facility]Op [facility]) [address] [place] [address] [place], [address], 10/19/2023 08:46:17 10/19/19 24 10/19/2023 CBC W/ AUTO DIFF MPV 9.2 fL 6.8-10 .2 Not Available [facility] (Pre[facility]Op [facility]) [address] [place] [address] [place], [address], 10/19/2023 08:46:17 10/19/19 24 10/19/2023 CBC W/ AUTO DIFF neutrophil % 79.4 % 50-70 high Not Available [facility] (Pre[facility]Op [facility]) [address] [place] [address] [place], [address], 10/19/2023 08:46:17 10/19/19 24 10/19/2023 CBC W/ AUTO DIFF lymphocyte % 6.7 % 18.0-4 2.0 low Not Available [facility] (Pre[facility]Op [facility]) [address] [place] [address] [place], [address], 10/19/2023 08:46:17 10/19/19 24 10/19/2023 CBC W/ AUTO DIFF monocyte % 8.0 % 2.0-11 .0 Not Available [facility] (Pre-Op [facility]) [address] [place] [address] [place], [address], 10/19/2023 08:46:17 10/19/19 24 10/19/2023 CBC W/ AUTO DIFF eosinophil % 3.2 % 1.0-3. 0 high Not Available [facility] (Pre[facility]Op [facility]) [address] [place] [address] [place], [address], 10/19/2023 08:46:17 10/19/19 24 10/19/2023 CBC W/ AUTO DIFF basophil % 0.5 % 0.0-2. 0 Not Available [facility] ([facility]Op [facility]) [address] [place] [address] [place], [address], 10/19/2023 08:46:17 10/19/19 24 10/19/2023 CBC W/ AUTO DIFF immature granulocytes % 2.2 % 0.0-0. 8 high Not Available [facility] (Pre[facility]Op [facility]) [address] [place] [address] [place], [address], 10/19/2023 08:46:17 10/19/19 24 10/19/2023 CBC W/ AUTO DIFF nucleated red blood cells % 0.6 % Not Available [facility] (Pre-Op [facility]) [address] [place] [address] [place], [address], 10/19/2023 08:46:17 10/19/19 24 10/19/2023 CBC W/ AUTO DIFF neutrophil # 6.53 K/uL Not Available [facility] (Pre[facility]Op [facility]) [address] [place] [address] [place], [address], 10/19/2023 08:46:17 10/19/19 24 10/19/2023 CBC W/ AUTO DIFF lymphocyte # 0.55 K/uL Not Available [facility] (Pre-Op Clinic) [address] [place] [address] [place], [address], 10/19/2023 08:46:17 10/19/19 24 10/19/2023 CBC W/ AUTO DIFF monocyte # 0.66 K/uL Not Available [facility] (Pre-Op Clinic) [address] [place] [address] [place], [address], 10/19/2023 08:46:17 10/19/19 24 10/19/2023 CBC W/ AUTO DIFF eosinophil # 0.26 K/uL Not Available [facility] (Pre-Op Clinic) [address] [place] [address] [place], [address], 10/19/2023 08:46:17 10/19/19 24 10/19/2023 CBC W/ AUTO DIFF basophil # 0.04 K/uL Not Available [facility] (Pre-Op Clinic) [address] [place] [address] [place], [address], 10/19/2023 08:46:17 10/19/19 24 10/19/2023 CBC W/ AUTO DIFF immature gramulocytes # 0.18 K/uL Not Available [facility] ([facility]Op [facility]) [address] [place] [address] [place], [address], 10/19/2023 08:46:17 10/19/19 24 10/19/2023 CBC W/ AUTO DIFF nucleated red blood cells # 0.05 k/uL Not Available [facility] (Pre-Op [facility]) [address] [place] [address] [place], [address], 10/19/2023 08:46:17 10/19/19 24 10/19/2023 CBC W/ AUTO DIFF manual differential NO Not Available [facility] (Pre-Op [facility]) [address] [place] [address] [place], [address], 10/19/2023 08:46:17 10/19/19 24 10/19/2023 CBC W/ AUTO DIFF note Unles s other godinez noted testi ng perfo rmed at: [facility] [address] [place] [place] [address] Juan Antonio rivera MD Not Available [facility] (Pre-Op Clinic) [address] [place] [address] [place], [address], 10/19/2023 08:46:17 10/19/19 24 10/19/2023 COMP METAB OLIC PANEL sodium 142 mmol/ L 137-14 7 Not Available [facility] (Pre[facility]Op [facility]) [address] [place] [address] [place], [address], 10/19/2023 08:47:22 10/19/19 24 10/19/2023 COMP METAB OLIC PANEL potassium 4.1 mmol/ L 3.5-5. 1 Not Available [facility] (Pre-Op Clinic) [address] [place] [address] [place], [address], 10/19/2023 08:47:22 10/19/19 24 10/19/2023 COMP METAB OLIC PANEL chloride 105 mmol/ L 98-110 Not Available [facility] (Pre[facility]Op [facility]) [address] [facility] [place], [address], 10/19/2023 08:47:22 10/19/19 24 10/19/2023 COMP METAB OLIC PANEL carbon dioxide 31 mmol/ L 21-30 high Not Available [facility] (Pre[facility]Op [facility]) [address] [facility] [place], [address], 10/19/2023 08:47:22 10/19/19 24 10/19/2023 COMP METAB OLIC PANEL anion gap 6 mmol/ L 6-14 Not Available [facility] ([facility]Op [facility]) [address] [place] [address] [place], [address], 10/19/2023 08:47:22 10/19/19 24 10/19/2023 COMP METAB OLIC PANEL glucose 258 mg/dL 70-115 high Not Available [facility] ([facility]Op [facility]) [address] [place] [address] [place], [address], 10/19/2023 08:47:22 10/19/19 24 10/19/2023 COMP METAB OLIC PANEL BUN 16 mg/dL 7-17 Not Available [facility] (Pre[facility]Op [facility]) [address] [place] [address] [place], [address], 10/19/2023 08:47:22 10/19/19 24 10/19/2023 COMP METAB OLIC PANEL creatinine 0.8 mg/dL 0.5-1. 5 Not Available [facility] ([facility]Op [facility]) [address] [place] [address] [place], [address], 10/19/2023 08:47:22 10/19/19 24 10/19/2023 COMP METAB OLIC PANEL BUN/creatini ne ratio 20 ratio 10-20 Not Available [facility] (Pre-Op [facility]) [address] [place] [address] [place], [address], 10/19/2023 08:47:22 10/19/19 24 10/19/2023 COMP METAB OLIC PANEL glom filtration rate 77 mL/mi n >60- Not Available [facility] ([facility]Op [facility]) [address] [place] [address] [place], [address], 10/19/2023 08:47:22 10/19/19 24 10/19/2023 COMP METAB OLIC PANEL osmolality (calculated) 305 mosmo l/kg 275-30 1 high OSMOL ALITY IS A CALCU LATIO N UTILI ZING THE SERUM /PLAS MA SODIU M, GLUCO SE AND UREA NITRO GEN (BUN) LEVEL S. FOR THE MOST ACCUR ATE RESUL T A MEASU RED SERUM OSMOL ALITY IS SUGGE STED. Not Available [facility] (Pre[facility]Op [facility]) [address] [place] [address] [place], [address], 10/19/2023 08:47:22 10/19/19 24 10/19/2023 COMP METAB OLIC PANEL total protein 6.5 g/dL 6.2-8. 2 Not Available [facility] ([facility]Op [facility]) [address] [place] [address] [place], [address], 10/19/2023 08:47:22 10/19/19 24 10/19/2023 COMP METAB OLIC PANEL albumin 3.9 g/dL 3.5-5. 0 Not Available [facility] ([facility]) [address] [place] [address] [place], [address], 10/19/2023 08:47:22 10/19/19 24 10/19/2023 COMP METAB OLIC PANEL calcium 9.7 mg/dL 8.5-10 .8 Not Available [facility] ([facility]) [address] [place] [address] [place], [address], 10/19/2023 08:47:22 10/19/19 24 10/19/2023 COMP METAB OLIC PANEL bilirubin total 0.4 mg/dL 0.2-1. 3 Not Available [facility] ([facility]Op [facility]) [address] [place] [address] [place], [address], 10/19/2023 08:47:22 10/19/19 24 10/19/2023 COMP METAB OLIC PANEL AST (SGOT) 20 IU/L 14-36 Not Available [facility] ([facility]) [address] [place] [address] [place], [address], 10/19/2023 08:47:22 10/19/19 24 10/19/2023 COMP METAB OLIC PANEL ALT (SGPT) 16 IU/L 0-35 Pleas e note new refer ence inter lynn for ALT. 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 Not Available [facility] ([facility]) [address] [place] [address] [place], [address], 10/19/2023 08:47:22 10/19/19 24 10/19/2023 COMP METAB OLIC PANEL alk phosphatase 98 IU/L 38-126 Not Available [facility] (Pre-Op [facility]) [address] [place] [address] [place], [address], 10/19/2023 08:47:22 10/19/19 24 10/19/2023 COMP METAB OLIC PANEL note Unles s other godinez noted testi ng perfo [facility]med at: [facility] [address] [place] [address] Juan Antonio rivera MD Not Available [facility] ([facility]) [address] [place] [address] [place], [address], 10/19/2023 08:47:22 10/19/19 24 10/19/2023 MAGNE SIUM magnesium 1.5 mg/dL 1.6-2. 4 low Not Available [facility] ([facility]) [address] [place] [address] [place], [address], 10/19/2023 08:47:23 10/19/19 24 10/19/2023 MAGNE SIUM note Unles s other godinez noted testi ng perfo rmed at: [facility] [address] [place] [address] Juan Antonio rivera MD Not Available [facility] ([facility]) [address] [place] [address] [place], [address], 10/19/2023 08:47:23 11/09/19 24 11/09/2023 CBC W/ AUTO DIFF WBC 7.86 K/uL 4.5-11 .5 Not Available [facility] ([facility]) [address] [place] [address] [place], [address], 11/09/2023 08:55:13 11/09/19 24 11/09/2023 CBC W/ AUTO DIFF RBC 3.68 M/uL 4.0-5. 4 low Not Available [facility] ([facility]) [address] [place] [address] [place], [address], 11/09/2023 08:55:13 11/09/19 24 11/09/2023 CBC W/ AUTO DIFF HGB 11.2 g/dL 12.0-1 5.0 low Not Available [facility] ([facility]) [address] [place] [address] [place], [address], 11/09/2023 08:55:13 11/09/19 24 11/09/2023 CBC W/ AUTO DIFF HCT 36.1 % 35-49 Not Available [facility] ([facility]) [address] [place] [address] [place], [address], 11/09/2023 08:55:13 11/09/1911/09/2023 CBC W/ AUTO DIFF MCV 98.1 fL 80.0-1 00.0 Not Available [facility] ([facility]) [address] [place] [address] [place], [address], 11/09/2023 08:55:13 11/09/19 24 11/09/2023 CBC W/ AUTO DIFF MCH 30.4 pg 26.0-3 2.0 Not Available [facility] ([facility]) [address] [place] [address] [place], [address], 11/09/2023 08:55:13 11/09/19 24 11/09/2023 CBC W/ AUTO DIFF MCHC 31.0 g/dL 32.0-3 6.0 low Not Available [facility] ([facility]) [address] [place] [address] [place], [address], 11/09/2023 08:55:13 11/09/19 24 11/09/2023 CBC W/ AUTO DIFF RDW 16.8 % 11.5-1 4.5 high Not Available [facility] ([facility]) [address] [place] [address] [place], [address], 11/09/2023 08:55:13 11/09/1911/09/2023 CBC W/ AUTO DIFF platelet count 307 K/uL 142-42 4 Not Available [facility] ([facility]) [address] [place] [address] [place], [address], 11/09/2023 08:55:13 11/09/1911/09/2023 CBC W/ AUTO DIFF MPV 9.5 fL 6.8-10 .2 Not Available [facility] ([facility]) [address] [place] [address] [place], [address], 11/09/2023 08:55:13 11/09/19 24 11/09/2023 CBC W/ AUTO DIFF neutrophil % 69.9 % 50-70 Not Available [facility] ([facility]) [address] [place] [address] [place], [address], 11/09/2023 08:55:13 11/09/19 24 11/09/2023 CBC W/ AUTO DIFF lymphocyte % 13.6 % 18.0-4 2.0 low Not Available [facility] ([facility]) [address] [place] [address] [place], [address], 11/09/2023 08:55:13 11/09/19 24 11/09/2023 CBC W/ AUTO DIFF monocyte % 10.1 % 2.0-11 .0 Not Available [facility] ([facility]) [address] [place] [address] [place], [address], 11/09/2023 08:55:13 11/09/19 24 11/09/2023 CBC W/ AUTO DIFF eosinophil % 2.4 % 1.0-3. 0 Not Available [facility] ([facility]Op [facility]) [address] [place] [address] [place], [address], 11/09/2023 08:55:13 11/09/19 24 11/09/2023 CBC W/ AUTO DIFF basophil % 1.3 % 0.0-2. 0 Not Available [facility] ([facility]) [address] [place] [address] [place], [address], 11/09/2023 08:55:13 11/09/19 24 11/09/2023 CBC W/ AUTO DIFF immature granulocytes % 2.7 % 0.0-0. 8 high Not Available [facility] ([facility]Op [facility]) [address] [place] [address] [place], [address], 11/09/2023 08:55:13 11/09/19 24 11/09/2023 CBC W/ AUTO DIFF nucleated red blood cells % 0.3 % Not Available [facility] (Pre-Op [facility]) [address] [place] [address] [place], [address], 11/09/2023 08:55:13 11/09/19 24 11/09/2023 CBC W/ AUTO DIFF neutrophil # 5.50 K/uL Not Available [facility] ([facility]Op [facility]) [address] [place] [address] [place], [address], 11/09/2023 08:55:13 11/09/19 24 11/09/2023 CBC W/ AUTO DIFF lymphocyte # 1.07 K/uL Not Available [facility] ([facility]) [address] [place] [address] [place], [address], 11/09/2023 08:55:13 11/09/19 24 11/09/2023 CBC W/ AUTO DIFF monocyte # 0.79 K/uL Not Available [facility] ([facility]Op [facility]) [address] [facility] [place], [address], 11/09/2023 08:55:13 11/09/19 24 11/09/2023 CBC W/ AUTO DIFF eosinophil # 0.19 K/uL Not Available [facility] ([facility]Op [facility]) [address] [place] [address] [place], [address], 11/09/2023 08:55:13 11/09/19 24 11/09/2023 CBC W/ AUTO DIFF basophil # 0.10 K/uL Not Available [facility] ([facility]Op [facility]) [address] [place] [address] [place], [address], 11/09/2023 08:55:13 11/09/19 24 11/09/2023 CBC W/ AUTO DIFF immature gramulocytes # 0.21 K/uL Not Available [facility] ([facility]Op [facility]) [address] [place] [address] [place], [address], 11/09/2023 08:55:13 11/09/19 24 11/09/2023 CBC W/ AUTO DIFF nucleated red blood cells # 0.02 k/uL Not Available [facility] ([facility]Op [facility]) [address] [place] [address] [place], [address], 11/09/2023 08:55:13 11/09/19 24 11/09/2023 CBC W/ AUTO DIFF manual differential NO Not Available [facility] ([facility]Op [facility]) [address] [place] [address] [place], [address], 11/09/2023 08:55:13 11/09/19 24 11/09/2023 CBC W/ AUTO DIFF note Unles s other godinez noted testi ng [facility] [address] [facility] [place] [address] Juan Antonio rivera MD Not Available [facility] ([facility]) [address] [facility] [place], [address], 11/09/2023 08:55:13 11/09/19 24 11/09/2023 COMP METAB OLIC PANEL sodium 142 mmol/ L 137-14 7 Not Available [facility] ([facility]) [address] [facility] [place], [address], 11/09/2023 09:19:53 11/09/19 24 11/09/2023 COMP METAB OLIC PANEL potassium 3.9 mmol/ L 3.5-5. 1 Not Available [facility] ([facility]Op [facility]) [address] [facility] [place], [address], 11/09/2023 09:19:53 11/09/19 24 11/09/2023 COMP METAB OLIC PANEL chloride 101 mmol/ L 98-110 Not Available [facility] ([facility]) [address] [facility] [place], [address], 11/09/2023 09:19:53 11/09/19 24 11/09/2023 COMP METAB OLIC PANEL carbon dioxide 28 mmol/ L 21-30 Not Available [facility] ([facility]) [address] [place] [address] [place], [address], 11/09/2023 09:19:53 11/09/19 24 11/09/2023 COMP METAB OLIC PANEL anion gap 13 mmol/ L 6-14 Not Available [facility] ([facility]) [address] [place] [address] [place], [address], 11/09/2023 09:19:53 11/09/19 24 11/09/2023 COMP METAB OLIC PANEL glucose 187 mg/dL 70-115 high Not Available [facility] ([facility]) [address] [place] [address] [place], [address], 11/09/2023 09:19:53 11/09/19 24 11/09/2023 COMP METAB OLIC PANEL BUN 16 mg/dL 7-17 Not Available [facility] ([facility]) [address] [facility] [place], [address], 11/09/2023 09:19:53 11/09/19 24 11/09/2023 COMP METAB OLIC PANEL creatinine 0.8 mg/dL 0.5-1. 5 Not Available [facility] ([facility]) [address] [facility] [place], [address], 11/09/2023 09:19:53 11/09/19 24 11/09/2023 COMP METAB OLIC PANEL BUN/creatini ne ratio 20 ratio 10-20 Not Available [facility] ([facility]) [address] [facility] [place], [address], 11/09/2023 09:19:53 11/09/19 24 11/09/2023 COMP METAB OLIC PANEL glom filtration rate 83 mL/mi n >60- Not Available [facility] ([facility]) [address] [facility] [place], [address], 11/09/2023 09:19:53 11/09/1911/09/2023 COMP METAB OLIC PANEL osmolality (calculated) 301 mosmo l/kg 275-30 1 OSMOL ALITY IS A CALCU LATIO N UTILI ZING THE SERUM /PLAS MA SODIU M, GLUCO SE AND UREA NITRO GEN (BUN) LEVEL S. FOR THE MOST ACCUR ATE RESUL T A MEASU RED SERUM OSMOL ALITY IS SUGGE STED. Not Available [facility] ([facility]) [address] [facility] [place], [address], 11/09/2023 09:19:53 11/09/19 24 11/09/2023 COMP METAB OLIC PANEL total protein 7.3 g/dL 6.2-8. 2 Not Available [facility] ([facility]) [address] [place] [address] [place], [address], 11/09/2023 09:19:53 11/09/1911/09/2023 COMP METAB OLIC PANEL albumin 4.1 g/dL 3.5-5. 0 Not Available [facility] ([facility]) [address] [place] [address] [place], [address], 11/09/2023 09:19:53 11/09/19 24 11/09/2023 COMP METAB OLIC PANEL calcium 9.5 mg/dL 8.5-10 .8 Not Available [facility] ([facility]) [address] [place] [address] [place], [address], 11/09/2023 09:19:53 11/09/1911/09/2023 COMP METAB OLIC PANEL bilirubin total 0.5 mg/dL 0.2-1. 3 Not Available [facility] ([facility]) [address] [place] [address] [place], [address], 11/09/2023 09:19:53 11/09/1911/09/2023 COMP METAB OLIC PANEL AST (SGOT) 26 IU/L 14-36 Not Available [facility] ([facility]) [address] [place] [address] [place], [address], 11/09/2023 09:19:53 11/09/1911/09/2023 COMP METAB OLIC PANEL ALT (SGPT) 16 IU/L 0-35 Pleas e note new refer ence inter lynn for ALT. 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 Not Available [facility] ([facility]Op [facility]) [address] [place] [address] [place], [address], 11/09/2023 09:19:53 11/09/19 24 11/09/2023 COMP METAB OLIC PANEL alk phosphatase 113 IU/L 38-126 Not Available [facility] ([facility]) [address] [facility] [place], [address], 11/09/2023 09:19:53 11/09/1911/09/2023 COMP METAB OLIC PANEL note Unles s other godinez noted testi ng perfo rmed at: [facility] [address] [place] [address] Juan Antonio rivera MD Not Available [facility] ([facility]) [address] [place] [address] [place], [address], 11/09/2023 09:19:53 11/09/1911/09/2023 MAGNE SIUM magnesium 1.4 mg/dL 1.6-2. 4 low Not Available [facility] ([facility]Op [facility]) [address] [place] [address] [place], [address], 11/09/2023 09:19:54 11/09/19 24 11/09/2023 MAGNE SIUM note Unles s other godinez noted testi ng perfo rmed at: [facility] [address] [place] [address] Juan Antonio rivera MD Not Available [facility] ([facility]) [address] [place] [address] [place], [address], 11/09/2023 09:19:54 11/09/1911/09/2023 IRON STUDY W FE/TI BC/UI BC/%S AT iron 93 ug/dL 37-170 Not Available [facility] ([facility]) [address] [place] [address] [place], [address], 11/09/2023 10:42:03 11/09/19 24 11/09/2023 IRON STUDY W FE/TI BC/UI BC/%S AT total iron bind cap. 258 ug/dL 265-49 7 low Not Available [facility] ([facility]) [address] [place] [address] [place], [address], 11/09/2023 10:42:03 11/09/19 24 11/09/2023 IRON STUDY W FE/TI BC/UI BC/%S AT unsaturated iron binding cap 165 ug/dL 150-37 5 Not Available [facility] ([facility]Op [facility]) [address] [place] [address] [place], [address], 11/09/2023 10:42:03 11/09/19 24 11/09/2023 IRON STUDY W FE/TI BC/UI BC/%S AT % saturation 36 % 15-55 Not Available [facility] ([facility]) [address] [place] [address] [place], [address], 11/09/2023 10:42:03 11/09/19 24 11/09/2023 IRON STUDY W FE/TI BC/UI BC/%S AT note Unles s other godinez noted testi ng perfo [facility]med at: [facility] [address] [place] [address] Juan Antonio rivera MD Not Available [facility] ([facility]) [address] [place] [address] [place], [address], 11/09/2023 10:42:03 11/09/19 24 11/09/2023 JAMES TIN ferritin 180 NG/mL 3-105 high Not Available [facility] ([facility]) [address] [place] [address] [place], [address], 11/09/2023 11:17:42 11/09/19 24 11/09/2023 JAMES TIN note Unles s other godinez noted testi ng perfo rmed at: [facility] [address] [place] [address] Juan Antonio rivera MD Not Available [facility] ([facility]) [address] [place] [address] [place], [address], 11/09/2023 11:17:42 11/09/19 24 11/09/2023 VITAM IN B12 vitamin B12 925 pg/mL 239-93 1 Not Available [facility] ([facility]) [address] [place], [address], 11/09/2023 11:45:19 11/09/19 24 11/09/2023 VITAM IN B12 folate (folic acid), serum 11.5 NG/mL 2.76- Not Available [facility] (Pre[facility]Op [facility]) [address] [place] [address] [place], [address], 11/09/2023 11:45:19 11/09/19 24 11/09/2023 VITAM IN B12 note Unles s other godinez noted testi ng perfo rmed at: [facility] [address] [place] [address] Juan Antonio rivera MD Not Available [facility] ([facility]) [address] [place] [address] [place], [address], 11/09/2023 11:45:19 11/09/19 24 11/09/2023 METHY LMALO ANDREW ACID QUANT note Unles s other godinez noted testi ng perfo rmed at: [facility] [address] [place] [address] Juan Antonio rivera MD Not Available [facility] ([facility]) [address] [place] [address] [place], [address], 11/13/2023 14:17:09 11/09/19 24 11/13/2023 METHY LMALO ANDREW ACID QUANT methylmaloni c acid, serum 198 nmol/ L 0-378 Test( s) 69738 7-Met hylma lonic Acid, Serum was devel oped and its perfo rmanc e kayla cteri stics deter mined by [facility]. It has not been clear ed or appro dequan by the Food and Drug Admin istra tion. Perfo rmed at: - [facility] [address] [place] [address] Lab Direc tor: Blanca singh MD, Phone : [phone] Not Available [facility] ([facility]) [address] [place] [address] [place], [address], 11/13/2023 14:17:09 02/08/20 24 02/08/2024 CBC W/ AUTO DIFF WBC 7.20 K/uL 4.5-11 .5 Not Available [facility] ([facility]) [address] [place] [address] [place], [address], 02/08/2024 11:13:30 02/08/20 24 02/08/2024 CBC W/ AUTO DIFF RBC 3.41 M/uL 4.0-5. 4 low Not Available [facility] ([facility]) [address] [place] [address] [place], [address], 02/08/2024 11:13:30 02/08/20 24 02/08/2024 CBC W/ AUTO DIFF HGB 10.8 g/dL 12.0-1 5.0 low Not Available [facility] ([facility]) [address] [place] [address] [place], [address], 02/08/2024 11:13:30 02/08/20 24 02/08/2024 CBC W/ AUTO DIFF HCT 34.4 % 35-49 low Not Available [facility] ([facility]) [address] [place] [address] [place], [address], 02/08/2024 11:13:30 02/08/20 24 02/08/2024 CBC W/ AUTO DIFF MCV 100.9 fL 80.0-1 00.0 high Not Available [facility] ([facility]) [address] [place] [address] [place], [address], 02/08/2024 11:13:30 02/08/20 24 02/08/2024 CBC W/ AUTO DIFF MCH 31.7 pg 26.0-3 2.0 Not Available [facility] ([facility]) [address] [place] [address] [place], [address], 02/08/2024 11:13:30 02/08/20 24 02/08/2024 CBC W/ AUTO DIFF MCHC 31.4 g/dL 32.0-3 6.0 low Not Available [facility] ([facility]) [address] [place] [address] [place], [address], 02/08/2024 11:13:30 02/08/20 24 02/08/2024 CBC W/ AUTO DIFF RDW 14.4 % 11.5-1 4.5 Not Available [facility] ([facility]) [address] [place] [address] [place], [address], 02/08/2024 11:13:30 02/08/20 24 02/08/2024 CBC W/ AUTO DIFF platelet count 190 K/uL 142-42 4 Not Available [facility] ([facility]) [address] [place] [address] [place], [address], 02/08/2024 11:13:30 02/08/20 24 02/08/2024 CBC W/ AUTO DIFF MPV 9.7 fL 6.8-10 .2 Not Available [facility] ([facility]) [address] [place] [address] [place], [address], 02/08/2024 11:13:30 02/08/20 24 02/08/2024 CBC W/ AUTO DIFF neutrophil % 81.4 % 50-70 high Not Available [facility] ([facility]) [address] [place] [address] [place], [address], 02/08/2024 11:13:30 02/08/20 24 02/08/2024 CBC W/ AUTO DIFF lymphocyte % 9.9 % 18.0-4 2.0 low Not Available [facility] ([facility]) [address] [place] [address] [place], [address], 02/08/2024 11:13:30 02/08/20 24 02/08/2024 CBC W/ AUTO DIFF monocyte % 3.6 % 2.0-11 .0 Not Available [facility] ([facility]) [address] [place] [address] [place], [address], 02/08/2024 11:13:30 02/08/20 24 02/08/2024 CBC W/ AUTO DIFF eosinophil % 4.0 % 1.0-3. 0 high Not Available [facility] ([facility]) [address] [place] [address] [place], [address], 02/08/2024 11:13:30 02/08/20 24 02/08/2024 CBC W/ AUTO DIFF basophil % 0.7 % 0.0-2. 0 Not Available [facility] ([facility]) [address] [place] [address] [place], [address], 02/08/2024 11:13:30 02/08/20 24 02/08/2024 CBC W/ AUTO DIFF immature granulocytes % 0.4 % 0.0-0. 8 Not Available [facility] ([facility]) [address] [place] [address] [place], [address], 02/08/2024 11:13:30 02/08/20 24 02/08/2024 CBC W/ AUTO DIFF nucleated red blood cells % 0.0 % Not Available [facility] ([facility]) [address] [place] [address] [place], [address], 02/08/2024 11:13:30 02/08/20 24 02/08/2024 CBC W/ AUTO DIFF neutrophil # 5.86 K/uL Not Available [facility] (Pre-Op Clinic) [address] [place] [address] [place], [address], 02/08/2024 11:13:30 02/08/20 24 02/08/2024 CBC W/ AUTO DIFF lymphocyte # 0.71 K/uL Not Available [facility] (Pre-Op Clinic) [address] [place] [address] [place], [address], 02/08/2024 11:13:30 02/08/20 24 02/08/2024 CBC W/ AUTO DIFF monocyte # 0.26 K/uL Not Available [facility] (Pre-Op Clinic) [address] [facility] [place], [address], 02/08/2024 11:13:30 02/08/20 24 02/08/2024 CBC W/ AUTO DIFF eosinophil # 0.29 K/uL Not Available [facility] ([facility]) [address] [facility] [place], [address], 02/08/2024 11:13:30 02/08/20 24 02/08/2024 CBC W/ AUTO DIFF basophil # 0.05 K/uL Not Available [facility] ([facility]) [address] [place] [address] [place], [address], 02/08/2024 11:13:30 02/08/20 24 02/08/2024 CBC W/ AUTO DIFF immature gramulocytes # 0.03 K/uL Not Available [facility] ([facility]) [address] [place] [address] [place], [address], 02/08/2024 11:13:30 02/08/20 24 02/08/2024 CBC W/ AUTO DIFF nucleated red blood cells # 0.00 k/uL Not Available [facility] ([facility]) [address] [place] [address] [place], [address], 02/08/2024 11:13:30 02/08/20 24 02/08/2024 CBC W/ AUTO DIFF manual differential NO Not Available [facility] ([facility]) [address] [place] [address] [place], [address], 02/08/2024 11:13:30 02/08/20 24 02/08/2024 CBC W/ AUTO DIFF note Unles s other godinez noted testi ng perfo rmed at: [facility] [address] [place] [address] Juan Antonio rivera MD Not Available [facility] ([facility]) [address] [place] [address] [place], [address], 02/08/2024 11:13:30 02/08/20 24 02/08/2024 COMP METAB OLIC PANEL sodium 144 mmol/ L 137-14 7 Not Available [facility] ([facility]) [address] [facility] [place], [address], 02/08/2024 11:52:56 02/08/20 24 02/08/2024 COMP METAB OLIC PANEL potassium 4.1 mmol/ L 3.5-5. 1 Not Available [facility] ([facility]) [address] [place] [address] [place], [address], 02/08/2024 11:52:56 02/08/20 24 02/08/2024 COMP METAB OLIC PANEL chloride 106 mmol/ L 98-110 Not Available [facility] ([facility]) [address] [place] [address] [place], [address], 02/08/2024 11:52:56 02/08/20 24 02/08/2024 COMP METAB OLIC PANEL carbon dioxide 27 mmol/ L 21-30 Not Available [facility] ([facility]) [address] [place] [address] [place], [address], 02/08/2024 11:52:56 02/08/20 24 02/08/2024 COMP METAB OLIC PANEL anion gap 11 mmol/ L 6-14 Not Available [facility] ([facility]) [address] [place] [address] [place], [address], 02/08/2024 11:52:56 02/08/20 24 02/08/2024 COMP METAB OLIC PANEL glucose 208 mg/dL 70-115 high Not Available [facility] ([facility]) [address] [place] [address] [place], [address], 02/08/2024 11:52:56 02/08/20 24 02/08/2024 COMP METAB OLIC PANEL BUN 21 mg/dL 7-17 high Not Available [facility] ([facility]) [address] [place] [address] [place], [address], 02/08/2024 11:52:56 02/08/20 24 02/08/2024 COMP METAB OLIC PANEL creatinine 1.0 mg/dL 0.5-1. 5 Not Available [facility] ([facility]) [address] [place] [address] [place], [address], 02/08/2024 11:52:56 02/08/20 24 02/08/2024 COMP METAB OLIC PANEL BUN/creatini ne ratio 21 ratio 10-20 high Not Available [facility] ([facility]) [address] [place] [address] [place], [address], 02/08/2024 11:52:56 02/08/20 24 02/08/2024 COMP METAB OLIC PANEL glom filtration rate 63 mL/mi n >60- Not Available [facility] ([facility]) [address] [place] [address] [place], [address], 02/08/2024 11:52:56 02/08/20 24 02/08/2024 COMP METAB OLIC PANEL osmolality (calculated) 308 mosmo l/kg 275-30 1 high OSMOL ALITY IS A CALCU LATIO N UTILI ZING THE SERUM /PLAS MA SODIU M, GLUCO SE AND UREA NITRO GEN (BUN) LEVEL S. FOR THE MOST ACCUR ATE RESUL T A MEASU RED SERUM OSMOL ALITY IS SUGGE STED. Not Available [facility] ([facility]) [address] [place] [address] [place], [address], 02/08/2024 11:52:56 02/08/20 24 02/08/2024 COMP METAB OLIC PANEL total protein 7.7 g/dL 6.2-8. 2 Not Available [facility] ([facility]) [address] [place] [address] [place], [address], 02/08/2024 11:52:56 02/08/20 24 02/08/2024 COMP METAB OLIC PANEL albumin 4.1 g/dL 3.5-5. 0 Not Available [facility] ([facility]) [address] [place] [address] [place], [address], 02/08/2024 11:52:56 02/08/20 24 02/08/2024 COMP METAB OLIC PANEL calcium 9.2 mg/dL 8.5-10 .8 Not Available [facility] ([facility]) [address] [place] [address] [place], [address], 02/08/2024 11:52:56 02/08/20 24 02/08/2024 COMP METAB OLIC PANEL bilirubin total 0.4 mg/dL 0.2-1. 3 Not Available [facility] ([facility]) [address] [place] [address] [place], [address], 02/08/2024 11:52:56 02/08/20 24 02/08/2024 COMP METAB OLIC PANEL AST (SGOT) 24 IU/L 14-36 Not Available [facility] ([facility]) [address] [place] [address] [place], [address], 02/08/2024 11:52:56 02/08/20 24 02/08/2024 COMP METAB OLIC PANEL ALT (SGPT) 19 IU/L 0-35 Pleas e note new refer ence inter lynn for ALT. 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 Not Available [facility] ([facility]) [address] [place] [address] [place], [address], 02/08/2024 11:52:56 02/08/20 24 02/08/2024 COMP METAB OLIC PANEL alk phosphatase 121 IU/L 38-126 Not Available [facility] ([facility]Op [facility]) [address] [place] [address] [place], [address], 02/08/2024 11:52:56 02/08/20 24 02/08/2024 COMP METAB OLIC PANEL note Unles s other godinez noted testi ng perfo rmed at: [facility] [address] [place] [address] Juan Antonio rivera MD Not Available [facility] ([facility]) [address] [place] [address] [place], [address], 02/08/2024 11:52:56 02/08/20 24 02/08/2024 VITAM IN D, 25-HY DROXY vitamin D, 25-hydroxy 39.1 NG/mL 30-100 Vitam in D defic iency has been defin ed by the [facility] pract ice guide line as a level of serum 25-OH vitam in D less than 20 ng/mL . The Endoc rine Socie ty went on to furth er defin e vitam in D insuf ficie ncy as a level betwe en 20 and 29 ng/mL . Level s of vitam in D betwe en 30 and 100 ng/mL are consi dered suffi ent. Level s above 100 ng/mL are consi dered poten tiall y toxic . Not Available [facility] ([facility]) [address] [place] [address] [place], [address], 02/08/2024 12:01:45 02/08/20 24 02/08/2024 VITAM IN D, 25-HY DROXY note Unles s other godinez noted testi ng perfo rmed at: [facility] [address] [place] [address] Juan Antonio rivera MD Not Available [facility] ([facility]) [address] [place] [address] [place], [address], 02/08/2024 12:01:45 02/08/20 24 02/08/2024 TSH thyroid stim hormone 3.21 uIU/m L 0.465- 4.68 Not Available [facility] ([facility]) [address] [place] [address] [place], [address], 02/08/2024 12:28:58 02/08/20 24 02/08/2024 TSH note Unlmarquez s other godinez noted testi ng perfo rmed at: [facility] [address] [place] [address] Juan Antonio rivera MD Not Available [facility] ([facility]) [address] [place] [address] [place], [address], 02/08/2024 12:28:58 02/08/20 24 02/08/2024 VITAM IN B12 vitamin B12 882 pg/mL 239-93 1 Not Available [facility] ([facility]) [address] [place] [address] [place], [address], 02/08/2024 12:33:32 02/08/20 24 02/08/2024 VITAM IN B12 note Unlmarquez s other godinez noted testi ng perfo rmed at: [facility] [address] [place] [address] Juan Antonio rivera MD Not Available [facility] ([facility]) [address] [place] [address] [place], [address], 02/08/2024 12:33:32 02/08/20 24 02/08/2024 FOLAT E folate (folic acid), serum 8.2 NG/mL 2.76- Not Available [facility] (Pre[facility]Op Clinic) [address] [place] [address] [place], [address], 02/08/2024 12:50:13 02/08/20 24 02/08/2024 FOLAT E note Unlmarquez s other godinez noted testi ng perfo rmed at: [facility] [address] [place] [address] Juan Atnonio rivera MD Not Available [facility] ([facility]) [address] [place] [address] [place], [address], 02/08/2024 12:50:13 02/08/20 24 02/08/2024 T4 FREE T4 free 1.35 NG/dL 0.78-2 .19 Not Available [facility] ([facility]) [address] [place] [address] [place], [address], 02/08/2024 12:52:26 02/08/20 24 02/08/2024 T4 FREE note Unles s other godinez noted testi ng perfo rmed at: [facility] [address] [place] [address] Juan Antonio rivera MD Not Available [facility] ([facility]) [address] [place] [address] [place], [address], 02/08/2024 12:52:26 02/08/20 24 02/08/2024 METHY LMALO ANDREW ACID QUANT note Unlmarquez s other godinez noted testi ng perfo rmed at: [facility] [address] [place] [address] Juan Antonio rivera MD Not Available [facility] ([facility]) [address] [place] [address] [place], [address], 02/11/2024 18:11:06 02/08/20 24 02/11/2024 METHY LMALO ANDREW ACID QUANT methylmaloni c acid, serum 191 nmol/ L 0-378 Test( s) 76081 7-Met hylma lonic Acid, Serum was devel oped and its perfo rmanc e kayla cteri stics deter mined by [facility]. It has not been clear ed or appro dequan by the Food and Drug Admin istra tion. Perfo rmed at: - [facility] [address] [address] [place] [address] Lab Direc tor: Blanca singh MD, Phone : [phone] Not Available [facility] ([facility]) [address] [place] [address] [place], [address], 02/11/2024 18:11:06 06/24/19 25 06/24/2024 CREAT ININE creatinine 0.9 mg/dL 0.5-1. 5 Not Available [facility] ([facility]) [address] [place] [address] [place], [address], 06/24/2024 12:55:41 06/24/19 25 06/24/2024 CREAT ININE [...] rangel ing kiney funct ion. Not Available [facility] ([facility]) [address] [place] [address] [place], [address], 06/24/2024 12:55:41 06/24/19 25 06/24/2024 CREAT ININE note Unles s other godinez noted testi ng perfo rmed at: [facility] [address] [place] [address] Juan Antonio rivera MD Not Available [facility] ([facility]) [address] [place] [address] [place], [address], 06/24/2024 12:55:41 08/18/19 25 08/17/2024 CREAT ININE creatinine 0.9 mg/dL 0.5-1. 5 Not Available [facility] ([facility]) [address] [place] [address] [place], [address], 08/17/2024 10:41:12 08/18/19 25 08/17/2024 CREAT ININE [...] ia, veget nicolette diet or rapid ly rnagel ing kiney funct ion. Not Available [facility] ([facility]) [address] [place] [address] [place], [address], 08/17/2024 10:41:12 08/18/19 25 08/17/2024 CREAT ININE note Unles s other godinez noted testi ng perfo rmed at: [facility] [address] [place] [address] Juan Antonio rivera MD Not Available [facility] ([facility]Op [facility]) [address] [place] [address] [place], [address], 08/17/2024 10:41:12 11/17/19 24 11/17/2023 elect tim nassar am No observ ation record ed. [facility] [address] [place] [address] [address], [place], [address], 11/17/2023 20:20:23 11/17/19 24 elect tim boatenggr am No observ ation record ed. [email or web address] Not Available 2023 20:20:24 02/18/20 24 02/16/2024 PET-C T, skull base to mid-t high scan [facility] [address] [place] [address] [phone] (Phone ) JUVENAL Gallagher REPORT Name: TERESA SHARP : 1960 Accoun t #: [id number] Age: 63 Years Patien t Type: Outpat ient Sex: F Access ion#: [id number] Exam Descri ption: PET/CT SKULL BASE - MID THIGH Exam Reason : [id number] malign ant neopla sm of unsp part of uns bronch us or radha Order Date/T sammi: 2023 10:36: 00 AM Dictat ed By: Naun salas MD Orderi Physic juana: PERNELL ARAUJO Attend ing Physic [...] TERESA SHARP : 1960 Accoun t #: [id number] Age: 63 Years Patien t Type: Outpat ient Sex: F Access ion#: [id number] Exam Descri ption: PET/CT SKULL BASE [...] ent appear ing opacit ies to the internet programmer ior right upper lobe and superi or [...] OF 3 : 1960 Accoun t #: [id number] Age: 63 Years Patien t Type: Outpat ient Sex: F Access ion#: [id number] Exam Descri ption: PET/CT SKULL BASE [...] ent appear ing opacit ies to the internet programmer ior right upper lobe and superi or [...] [id number] PAGE 3 OF 3 CC'ed Logic: Tierney gonzalez Provid er: GAYLE GIMENEZ CC Provid er: SHEN PATTERSON AD Attend ing Provid er: GAYLE GIMENEZ Referr ing Provid er: GAYLE GIMENEZ Admitt ing Provid er: GAYLE GIMENEZ [email or web address] [facility] (Central Scheduling) [address] [place], [address], 02/23/2024 15:09:34 06/24/19 25 06/24/2024 CT, abdom en + pelvi s, w/o contr ast [facility] [address] [place] [address] (Phone ) JUVENAL Gallagher REPORT Name: TERESA SHARP : 1960 Accoun t #: [id number] Age: 63 Years Patien t Type: Outpat ient Sex: F Access ion#: [id number] Exam Descri ption: CT CHEST/ ABD/PE L NO PO-IV ONLY Exam Reason : malign ant neopla sm unspc brochu s or lung Order Date/T sammi: 2024 02:49: 15 PM Dictat ed By: MD Mayda Hawkins sei ng Physic juana: PERNELL ARAUJO Attend ing Physic juana: PERNELL ARAUJO CT CHEST ABDOME N PELVIS WITH IV CONTRA ST, 06/24/19 25 1:49 PM BOBBIN DUMPER INDICA TION: malign ant neopla sm unspc [...] TERESA SHARP : 1960 Accoun t #: [id number] Age: 63 Years Patien t Type: Outpat ient Sex: F Access ion#: [id number] Exam Descri ption: CT CHEST/ ABD/PE [...] OF 3 : 1960 Accoun t #: [id number] Age: 63 Years Patien t Type: Outpat ient Sex: F Access ion#: [id number] Exam Descri ption: CT CHEST/ ABD/PE [...] GIMENEZ Admitt ing Provid er: GAYLE GIMENEZ [email or web address] [facility] ([facility]) [address] [place] [address] [place], [address], 06/27/2024 13:59:26 08/19/19 25 08/17/2024 CT, chest , w/ contr ast [facility] [address] [place] [address] (Phone ) JUVENAL Gallagher REPORT Name: TERESA SHARP : 1960 Accoun t #: [id number] Age: 63 Years Patien t Type: Outpat ient Sex: F Access ion#: [id number] Exam Descri ption: CT CHEST W Exam Reason : [id number] MALIGN ANT NEOPLA SM OF UNSP PART OF UNSP BRONCH US OR JOSH Order Date/T sammi: 2024 11:58: 04 AM Dictat ed By: Iliana carreon MD Orderi Physic juana: TERRENCE DUMONT, YOUSOF Attend [...] scarri ng in the right upper lobe internet programmer ior segmen t. Minima l depend ent atelec tasis versus scarri ng unchan ged. Stable subple ural micron odule in the left lower lobe apical segmen t. No new consol idatio n, pleura l effusi on or pneumo thorax . PAGE 1 OF 2 Name: TERESA SHARP : 1960 Accoun t #: [id number] Age: 63 Years Patien t Type: Outpat ient Sex: F Access ion#: [id number] Exam Descri ption: CT CHEST W [...] scarri ng in the right upper lobe internet programmer ior segmen t. No new consol idatio n, pleura l effusi on or pneumo thorax . 2. Stable subple ural micron odule in the left lower lobe apical segmen t. 3. Mild to modera te caballero ry calcif icatio ns. Mitral valve calcif icatio ns. Electr onical ly signed by: Iliana carreon MD 2024 04:10 AM EDT RP Workst ation: [id number] Princi pal Interp reter Name: Iliana carreon Provid er ID: [id number] PAGE 2 OF 2 CC'ed Logic: Orderi ng Provid er: ELGARI ED YOUSOF CC Provid er: SHEN LIZAMA Attend ing Provid er: ELGARI ED YOUSOF Referr ing Provid er: ELGARI ED YOUSOF Admitt ing [facility]id [facility] YOU[facility]F [email or web address] [facility] (Central Scheduling) [address] [place] [address], [address], 08/18/2024 08:16:46 Result Notes Documentation Provider Name and Address Organization Details Recorded Time Pet-ct, Skull Base To Mid-thigh Scan : [place] [phone] (Phone) IMAGING REPORT Name: TERESA RIVERA : 1960 Age: 63 Years Patient Type: [...] NECK: PAGE 1 OF 3 Name: TERESA RIVERA : 1960 Age: 63 Years Patient Type: [...] MD 02/18/2024 11:46 AM EDT RP Principal Anchorer Name: Ebonie Olmos Provider ID: [id number] PAGE 3 OF 3 CC'ed Logic: Ordering Provider: GAYLE GIMENEZ CC Provider: SHEN HERNADEZ Attending Provider: GAYLE GIMENEZ Referring Provider: GAYLE GIMENEZ Admitting Provider: SAMANTA Oliver - [facility] 02/23/2024 15:09:34 Ct, Abdomen + Pelvis, W/o Contrast : [address] [phone] (Phone) IMAGING REPORT Name: TERESA RIVERA : 1960 Age: 63 Years Patient Type: Outpatient Sex: F Exam Description: CT CHEST/ABD/PEL NO PO-IV ONLY Exam Reason: malignant neoplasm unspc brochus or lung Order Date/Time: 06/24/2024 02:49:15 PM Dictated By: Luis Rodriguez MD Ordering Physician: PERNELL ARAUJO Attending Physician: PERNELL ARAUJO CT CHEST ABDOMEN PELVIS WITH IV CONTRAST, 06/24/2024 1:49 PM BOBBIN DUMPER INDICATION: malignant neoplasm unspc brochus or lung [...] emboli. PAGE 1 OF 3 Name: TERESA RIVERA : 1960 Age: 63 Years Patient Type: [...] by: Luis Rodriguez MD 06/24/2024 10:53 PM [facility] [place] Anchorer Name: Luis Rodriguez Provider ID: [id number] PAGE 3 OF 3 CC'ed Logic: Ordering Provider: GAYLE GIMENEZ CC Provider: SHEN HERNADEZ Attending Provider: GAYLE GIMENEZ Referring Provider: GAYLE GIMENEZ Admitting Provider: SAMANTA Price FABRICIO - [facility] 06/27/2024 13:59:26 Ct, Chest, W/ Contrast : [address] [address] (Phone) IMAGING REPORT Name: TERESA RIVERA : 1960 Age: 63 Years Patient Type: [...] pneumothorax. PAGE 1 OF 2 Name: TERESA RIVERA : 1960 Age: 63 Years Patient Type: [...] Hardik Duff MD 08/18/2024 04:10 AM EDT Principal Anchorer Name: Hardik Duff Provider ID: [id number] PAGE 2 OF 2 CC'ed Logic: Ordering Provider: NAT BONILLA CC Provider: SHEN HERNADEZ Attending Provider: NAT BONILLA Referring Provider: NAT BONILLA Admitting Provider: SAMANTA Gary [place] [facility] [place] 08/18/2024 08:16:46 Problems Name Problem SNOMED Code Status Onset Date Resolution Date Notes Provider Name and Address Organization Details Recorded Time Cigarette smoker 96802933 Active SAMANTA Manley [place] [facility] [place] 11/17/202 2 11:12:49 Family history of malignant neoplasm of kidney 736396919 Active Maribeth Santos null, [place] - [place] 2 11:12:49 Prieto hematuria 121994262 Active 2021 Catherine Lamb null[place] 2 09:59:40 Family history of malignant neoplasm 521853422 Active 2021 Maribeth [place] 2 11:12:49 Retention of urine 718907217 Active 2021 Catherine Lamb [place] 2 10:00:08 Diabetes mellitus 67452779 Active 2021 Maribeth [place] 2 11:12:49 Chronic obstructive pulmonary disease 24461345 Active 2021 Maribeth [place] 2 11:12:49 Hypertensive disorder 43263607 Active 2021 Maribeth [place] 2 11:12:49 Smoker 99321354 Active 2021 Maribeth [place] 2 11:12:49 Urethral caruncle 9703463 Active 2021 Maribeth [place] 2 11:12:49 Polyp of urethra 53390683 Active 2021 Maribeth [place] 2 11:12:49 Atrophic vaginitis 03493359 Active 2021 Maribeth [place] 2 11:12:49 Gastroesophage al reflux disease 973167798 Active 2022 Hafsa Hung [place] 3 09:26:51 Chemotherapy-i nduced nausea and vomiting 45304329 Active 2023 Zoey Conti shamir, [place] - [place] 4 14:16:16 Abdominal bloating 847944038 Active 2023 Maribel Overton NP [address], [address], [place], [address], [place] 4 09:03:07 Acid reflux 765464391 Active 2023 Maribel Overton NP [address], [address], [place], [address], [place] 4 09:03:07 Hyperplastic polyp of large intestine 280065164 Active 2023 Maribel Overton NP [address], [address], [place], [address], [place] 4 09:03:07 Multiple renal cysts 235730738 Active 2023 Maribel Overton NP [address], [address], [place], [address], [place] 4 09:03:07 Increased body mass index 53576270 Active 2023 Maribel Overton NP [address], [address], [place], [address], [place] 4 09:03:08 Diverticular disease of colon 776045554 Active 2023 Maribel Overton NP [address], [address], [place], [address], [place] 4 09:03:08 Problem Notes None recorded. Procedures Surgical History Date Name Laterality Status Provider Name and Address Organization Details Recorded Time 07/20/19 25 6 Minute Walk Test completed Mary [place] - [place] - [place] 07/19/2024 16:16:43 10/26/19 24 removal of implantable venous access port completed Rayne Simental [place] - [place] - [place] 10/27/2023 08:16:16 09/25/19 24 insertion of implantable venous access port completed Rayne [place] - [facility] - [place] 09/28/2023 09:27:25 08/18/19 24 6 Minute Walk Test completed Amanda Tacho [place] - [facility] - [place] 08/18/2023 13:36:17 06/30/19 24 6 Minute Walk Test completed Mary Bush [place] - [place] 06/30/2023 16:35:48 04/22/20 22 EMG/ Nerve Conduction Study completed Bairon Valente M.D [address] [place] [address] Drive, [address], [address], [place] 04/27/2022 18:10:54 04/03/20 22 EMG/ Nerve Conduction Study completed Bairon Valente M.D [address] [place] [address] Drive, [address], [address], [place] 04/03/2022 15:01:54 03/24/20 22 Cystoscopy-Fema le completed Vonnie [place] - [facility] [place] 03/24/2022 15:46:34 12/03/19 22 Date of Last Pap Smear completed maribeth [place] - [facility] - [place] 06/16/2022 09:02:06 08/07/19 22 completed maribeth cabezas [place] 06/16/2022 09:02:06 ligation of bilateral fallopian tubes completed Maribeth [place] - [facility] - [place] 08/24/2023 10:05:29 procedure on ear completed Maribeth [place] - [facility] - [place] 08/24/2023 10:05:46 Colonoscopy completed Rayne Simental [place] 09/17/2023 11:04:05 dental surgical procedure completed Rayne [place] - [facility] - [place] 09/17/2023 11:04:15 Imaging Results None recorded. Procedure Notes None recorded. Medical Equipment None Reported. Allergies Allergen ID Allergen Name Allergen Category Reaction Reaction Severity Criticality Documentation Date Start Date Code Code System Note Provider Name and Address Organization Details Recorded Time 88071 Keflex medicatio n Not available Not available Not available 03/21/2022 36179 7 RxNorm Catherine barksdale, SAMANTA JARQUIN [facility] & [place] 2 09:59:05 38275 meloxicam medicatio n Not available Not available Not available 03/21/2022 05488 RxNorm Catherine barksdlae, SAMANTA Calero [facility] & [place] 2 09:59:13 90632 lisinopri l medicatio n Not available Not available Not available 03/21/2022 82211 RxNorm Catherine barksdale, SAMANTA JARQUIN [facility] & [place] 2 09:59:22 Medications Name Sig Start Date [...] Not Available No t Available 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 75 g 98.4 [degF] 94 % 94 % 87 /min 121/55 mm[Hg] Paige Puga [facility] & [place] 5 10:25:52 Date Recorded Body height Body mass index (BMI) Body weight Body temperature Oxygen saturation Oxygen saturation in Arterial blood by Pulse oximetry Heart rate Systolic And Diastolic Provider Name and Address Organization Details Last Updated DateTime 5 170.18 cm 39.8 kg/m2 221754. 46 g 97.4 [degF] 94 % 94 % 82 /min 130/80 mm[Hg] Mary Calero [facility] & [place] 5 15:42:45 Date Recorded Body height Body mass index (BMI) Body weight Oxygen saturation Oxygen saturation in Arterial blood by Pulse oximetry Heart rate Systolic And Diastolic Provider Name and Address Organization Details Last Updated DateTime 4 170.18 cm 33 kg/m2 22428.9 9 g 94 % 94 % 134 /min 98/76 mm[Hg] Agustina Bush [place] [facility] & [place] 4 13:10:21 Date Recorded Body height Body mass index (BMI) Body weight Body temperature Oxygen saturation Oxygen saturation in Arterial blood by Pulse oximetry Heart rate Systolic And Diastolic Provider Name and Address Organization Details Last Updated DateTime 4 170.18 cm 36.5 kg/m2 335237. 02 g 97.9 [degF] 94 % 94 % 90 /min 124/84 mm[Hg] Marycassy EN[place] [facility] & [place] 4 13:01:46 Date Recorded Body height Body mass index (BMI) Body weight Body temperature Oxygen saturation Oxygen saturation in Arterial blood by Pulse oximetry Heart rate Systolic And Diastolic Provider Name and Address Organization Details Last Updated DateTime 4 170.18 cm 38.1 kg/m2 390555. 31 g 98.1 [degF] 95 % 95 % 91 /min 140/60 mm[Hg] Maribeth Larose SAMANTA [facility] & [place] 4 09:19:52 Social History Question Answer Notes LastModified by Organizat ion Details LastModified Time Tobacco Smoking Status Former Smoker quit [id number] Maribeth Larose [facility], SAMANTA [facility] & [place] 02/08/2024 09:22:44 Do You Have An Advance Directive? No [email or web address] Information not available 04/14/2022 Are You Blind Or Do You Have Difficulty Seeing? No [email or web address] Information not available 06/16/2022 What Is Your Level Of Caffeine Consumption? Occasional [email or web address] Information not available 08/24/2023 What Was The Date Of Your Most Recent Tobacco Screening? 08/24/2023 [email or web address] Information not available 08/24/2023 At What Age Did You Start Smoking Tobacco? 15 [email or web address] Information not available 02/08/2024 Are You Passively Exposed To Smoke? Yes [email or web address] Information not available 06/16/2022 How Much Tobacco Do You Smoke? 1 PPW [email or web address] Information not available 09/28/2023 Has Tobacco Cessation Counseling Been Provided? No [email or web address] Information not available 08/24/2023 How Many Years [...] used smokeless tobacco? Never used smokeless tobacco [email or web address] Information not available 04/14/2022 What is your exercise level? None [email or web address] Information not available 06/16/2022 Mental Status Question Answer Note LastModified by Organization D etails LastModified Time Do you feel stressed (tense, restless, nervous, or anxious, or unable to sleep at night)? [id number] [email or web address] Information not available 04/14/2022 Family History Relationship Description Onset Age of this Age Resolved Age Notes LastModified by Organization Details LastModified Time Brother Suspected kidney cancer [email or web address] Not available 07/19 15:03:48 Mother Heart disease Not available 2023 09:28:41 Mother Renal failure syndrome Not available 07/19 15:03:48 Mother Diabetes mellitus [email or web address] Not available 07/19 15:03:48 Mother Mother [email or web address] Not available 07/19 15:03:48 Father Diabetes mellitus [email or web address] Not available 07/19 15:03:48 Father Heart disease Not available 2023 09:29:00 Father Father [email or web address] Not available 07/19 15:03:48 Medical History Condition [...] ICD10 Code Diagnosis IMO Codes Diagnosis Note [id number] Anders Meredith MD [facility] [address] [facility] [address] [place] [address] 03/24/2022 14:01:00 03/24/2022 16:28:54 Prieto hematuria 956437779 R31.0 Family his tory of malignant neoplasm of kidney 178856662 Z80.51 Brother Smoker 28260881 F17.210 Retention of urine 70163 4002 R33.9 Urethral caruncle 629399 3 N36.2 Polyp of urethra 5850633 1 N36.2 Atrophic vaginitis 64410 000 N95.2 [id number] Anders Meredith MD [facility] [address] [facility],[place] [address] 07/22/2022 09:33:10 07/22/2022 10:33:55 Prieto hematuria 130884092 R31.0 Likely due to urethral caruncle Family his tory of malignant neoplasm of kidney 806264388 Z80.51 Brother Smoker 57001757 F17.210 Urethral caruncle 785901 3 N36.2 Polyp of urethra 4341301 1 N36.2 Atrophic vaginitis 98992 000 N95.2 Cyst of kidney 759777621 N28.1 bilateral with Bosniak 2 cysts on the right. Noncomplia nce with treatment 2424975 Z91.199 [id number] Bairon Valente M.D [facility] [address],[facility] [address] [place] [address] 04/03/2022 11:05:57 04/03/2022 11:43:47 Bilateral carpal tunnel syndrome 2319894577 3728624 G56.03 Neuralgia 08531696 M79.2 Paresthesia 06559850 R20 .2 [id number] MD JESUS [facility] - [address] [place] [address],[facility] [address] [place] [address] 04/14/2022 09:13:12 04/14/2022 10:02:53 Family history of malignant neoplasm of kidney 020004015 Z80.51 follow with PCP and urologist History of hypertension 566591385 Z86.79 follow with PCP-diet suggest Chronic ob structive pulmonary disease 34224441 J44.9 follow with PCP anti-reflu x measure Nausea 245955312 R11.0 could be secondary to gastropare sis [...] symptoms given endoscopy further management Abdominal pain 03258403 R10.9 more for bloating she gets discomfort went is bloated although has normal bowel movement she is getting EGD colonoscop y with Dr. Hurley in May advised to keep that appointmen t and come back after the ultrasound the abdomen in 2 3 months Nausea and vomiting 1693 1999 R11.2 [id number] Bairon Valente M.D [facility] [address] [place] [address],[facility] te [address] VERONICAANJEL Kramer [place] [address] 04/22/2022 10:39:43 04/22/2022 11:47:21 Lumbosacral radiculitis 27090822 M54.17 Hyperesthesia 37481788 R 20.3 [id number] MD [facility] - [address] [place] [address],[facility] [address] FRANKY Kramer [place] [address] 06/16/2022 08:34:07 06/16/2022 10:33:39 Nausea 231442149 R11.0 could be secondary to gastropare sis [...] smoothies low residue Decrease in appetite 643 90931 R63.0 small to 4-5 meals a day do 4 hour gastric emptying study and follow-up in 2 3 months prescripti on for Protonix and FiberCon sent Gastroesop hageal reflux disease without esophagitis 663849735 K21.9 his reflux measure discontinu e coffee soda Protonix started has benign fundic polyp Diverticul ar disease of colon 027601978 K57.30 probiotic fiber suggested like FiberCon as she cannot eat enough fiber for the stomach [id number] Gordon Abel MD [facility] - [address] [place] [address],[facility] 200 [place] [address] 09/15/2022 08:59:59 09/15/2022 13:24:46 Nausea 802771263 R11.0 she is trying to follow gastropare [...] all this thing Non-alcoho lic fatty liver 819529574 K76.0 continue low carb fatty liver diet Diverticul ar disease of colon 113630913 K57.30 probiotic fiber suggested like FiberCon as she cannot eat enough fiber for the stomach Fundic gla nd polyposis of stomach 385911665 K31.7 benign fundic polyp consider management at this time follow-up in 6 months [id number] Anders Meredith MD [facility] [address] [place] [address] 03/27/2023 11:14:58 03/27/2023 11:42:19 Cyst of kidney 976489423 N28.1 bilateral with Bosniak 2 cysts on the right. Prieto hematuria 02652016 5 R31.0 Likely due to urethral caruncle Family his tory of malignant neoplasm of kidney 835509676 Z80.51 Brother Smoker 56979696 F17.210 Urethral caruncle 929508 3 N36.2 Polyp of urethra 2767462 1 N36.2 Atrophic vaginitis 29026 000 N95.2 Noncomplia nce with treatment 3139856 Z91.199 [id number] Anders Meredith MD [facility] [address] [facility],[address] [place] [address] 05/26/2023 15:54:28 05/26/2023 16:02:14 Cyst of kidney 498810558 N28.1 bilateral with Bosniak 2 cysts on the right. Prieto hematuria 05640903 5 R31.0 Likely due to urethral caruncle Family his tory of malignant neoplasm of kidney 919306906 Z80.51 Brother Smoker 58680327 F17.210 Urethral caruncle 121931 3 N36.2 Polyp of urethra 3166539 1 N36.2 Atrophic vaginitis 84809 000 N95.2 Noncomplia nce with treatment 3681873 Z91.199 [id number] Irene Johns M.D [facility] W - [address] [place] [address] [address] [place] [address] 06/30/2023 14:42:20 06/30/2023 16:27:21 Dyspnea 430882470 R06.00 Nicotine dependence 5629 4008 Z87.891 Gastroesop hageal reflux disease without esophagitis 503438935 K21.9 [id number] Gordon Abel MD [facility] [address] [place] [address] [address] [place] [address] 07/27/2023 13:02:25 07/27/2023 13:59:41 Abdominal bloating 551660066 R14.0 given informatio n on low FODMAP diet along with probiotics Vu colon Health she is going to eliminate food that gives her gas especially certain vegetables she is off pancreatic enzyme if not better will do SIBO breath test with normal gastric emptying study Acid reflux 373186512 K2 1.9 continue PPI anti-reflu x measure weight reduction low acid diet follow-up in 4 months Hyperplast ic polyp of large intestine 338085597 K63.5 with the type of polyp is generally we do 10 years unless symptoms or signs for colonoscop y Multiple renal cysts 253 287956 N28.[address] follow with PCP Increased body mass index 11239404 E66.9 prevent metabolic liver disease advise low carb diet probiotic excess informatio n CHAPMAN in the diet associated with CHAPMAN given Diverticul ar disease of colon 390950674 K57.30 probiotic fiber suggested like FiberCon as she cannot eat enough fiber for the stomach [id number] Irene Johns M.D [facility] [address] [place] [address] 08/05/2023 12:57:43 08/05/2023 14:01:45 Dyspnea 808687171 R06.00 Nicotine dependence 5629 4008 Z87.891 Gastroesop hageal reflux disease without esophagitis 000695478 K21.9 Nodule of lung 833001525 R91.1 [id number] Irene Johns M.D [facility] [address] [place] [address] 08/18/2023 13:04:03 08/18/2023 13:40:14 Dyspnea 932123594 R06.00 Nicotine dependence 5629 4008 Z87.891 Gastroesop hageal reflux disease without esophagitis 974014926 K21.9 Nodule of lung 075078299 R91.1 Small cell carcinoma of lung 633048669 C34.90 [id number] Pernell Araujo MD [facility]olog -[address] [place] [address] 08/24/2023 09:45:34 08/24/2023 10:54:19 Small cell carcinoma of lung 619705832 C34.90 Low-dose lung cancer screening CT on [...] etoposide starting following staging imaging. Cigarette smoker 4931914 7 F17.210 Current smoker. Will address smoking cessation as further imaging performed. Anxiety 21122940 F41.9 Anxiety with MRI. Will add as needed Valium. Will follow-up [id number] Summer Martines PA-C [facility] [address] [place] [address] 09/07/2023 07:58:02 09/07/2023 09:25:24 Small cell carcinoma of lung 260217883 C34.90 Low-dose lung cancer screening CT on [...] next week. MRI of the brain negative.Vlad cuellar presents to clinic on September 07, 2023 for cycle 1 of cisplatin and etoposide with concurrent radiation. Chemothera py education performed. Cigarette smoker 7238175 7 F17.210 Current smoker. Will address smoking cessation as further imaging performed. Anxiety 68253623 F41.9 Anxiety with MRI. Will add as needed Valium. Will follow-up Antineopla stic chemotherapy regimen 297328368 Z51.11 Cycle 1 of etoposide and cisplatin on September 07, 2023. Chemothera py education performed. [id number] DO Franky Phipps General Surgery - [address] [place] [address], [address] [place] [address] 09/17/2023 10:09:43 09/21/2023 10:14:39 Small cell carcinoma of lung 974628240 C34.90 we will schedule her for power port placement at the earliest convenienc e. The procedure, risks and benefits were discussed with her and she agrees to proceed. She will have to stop her aspirin 7 days prior to the procedure. Type 2 munira betes mellitus without complication 797120277 E11.9 we will get a fasting blood sugar preoperati vely. Essential hypertension 42660121 I10 we will get blood work and an EKG preoperati vely [id number] Summer Martines PA-C [facility] [address] [place] [address] 09/28/2023 07:55:54 09/28/2023 08:35:00 Small cell carcinoma of lung 861773048 C34.90 Low-dose lung cancer screening CT on [...] radiation after completion concurrent radiation. Cigarette smoker 7241651 7 F17.210 Current smoker. Will address smoking cessation as further imaging performed. Anxiety 13872413 F41.9 Anxiety with MRI. Will add as needed Valium. Will follow-up Antineopla stic chemotherapy regimen 849091351 Z51.11 Cycle 1 of etoposide and cisplatin on September 07, 2023. Chemothera py education performed. Cycle 2 of etoposide and cisplatin on September 28, 2023. [id number] Irene Johns M.D [facility] W - [address] [place] [address] [place] [address] 09/29/2023 15:06:32 09/29/2023 16:06:06 Dyspnea 989366761 R06.00 Nicotine dependence 5629 4008 Z87.891 Gastroesop hageal reflux disease without esophagitis 303653308 K21.9 Nodule of lung 181934741 R91.1 Small cell carcinoma of lung 074875585 C34.90 [id number] DO Farnky Phipps General Surgery - [address] [place] [address], [address] [place] [address] 10/06/2023 11:13:56 10/07/2023 08:01:43 Postoperative visit 500702392 Z48.89 Status post power port placement she is doing well. She does not need to see me again unless she has a problem. Small cell carcinoma of lung 594072086 C34.90 we discussed that the port can stand for years as long as it is functional and does not become infected. [id number] Pernell Araujo MD [facility] [address] [place] [address] 10/19/2023 07:53:40 10/19/2023 09:32:29 Small cell carcinoma of lung 102262411 C34.90 Low-dose lung cancer screening CT on [...] next week. MRI of the brain negative.Vlad cuellar presents to clinic on September 07, 2023 for cycle 1 of cisplatin and etoposide with concurrent radiation. Patient returns on October 19, 2023 for cycle 3 of cisplatin and etoposide. Patient has completed radiation therapy. Plan for 4 cycles total. Will plan to repeat imaging in the next few weeks. Will follow-up Cigarette smoker 0127460 7 F17.210 Current smoker. Will address smoking cessation as further imaging performed. Anxiety 07250724 F41.9 Anxiety with MRI. Will add as needed Valium. Will follow-up Antineopla stic chemotherapy regimen 977955649 Z51.11 Cycle 1 of etoposide and cisplatin on September 07, 2023. Chemothera py education performed. Cycle 2 of etoposide and cisplatin on September 28, 2023.Radia tion therapy completed during cycle 2. Cycle 3 of cisplatin and etoposide on October 19, 2023. [id number] Summer Martines PA-C [facility] [address] [place] [address] 11/09/2023 08:09:17 11/09/2023 08:49:48 Small cell carcinoma of lung 860461753 C34.90 Low-dose lung cancer screening CT on [...] continue with last cycle today. Cigarette smoker 7912970 7 F17.210 Current smoker. Will address smoking cessation as further imaging performed. Anxiety 24311876 F41.9 Anxiety with MRI. Will add as needed Valium. Will follow-up Antineopla stic chemotherapy regimen 146418140 Z51.11 Cycle 1 of etoposide and cisplatin on September 07, 2023. Chemothera py education performed. Cycle 2 of etoposide and cisplatin on September 28, 2023.Radia tion therapy completed during cycle 2.Cycle 3 of cisplatin and etoposide on October 19, 2023.Cycle 4 of cisplatin and etoposide on November 09, 2023. Anemia 526723188 D64.9 Will follow up on labs. [id number] Irene Johns M.D [facility] [address] [place] [address] 01/25/2024 12:55:29 01/25/2024 13:23:22 Dyspnea 593691148 R06.00 Nicotine dependence 5629 4008 Z87.891 Gastroesop hageal reflux disease without esophagitis 668444695 K21.9 Nodule of lung 965356591 R91.1 Small cell carcinoma of lung 290113141 C34.90 [id number] Pernell Araujo MD [facility] [address] [place] [address] 02/08/2024 09:02:49 02/08/2024 10:29:55 Small cell carcinoma of lung 840342356 C34.90 Low-dose lung cancer screening CT on [...] MRI of the brain next month at [facility] in [place]. Will follow up evaluation with Radiation Medicine. Cigarette smoker 2433526 7 F17.210 Current smoker. Will address smoking cessation as further imaging performed. Anxiety 81469742 F41.9 Anxiety with MRI. Will add as needed Valium. Will follow-up Antineopla stic chemotherapy regimen [id number] Z51.11 Cycle 1 of etoposide and cisplatin on September 07, 2023. Chemothera py education performed. Cycle 2 of etoposide and cisplatin on September 28, 2023.Radia tion therapy completed during cycle 2.Cycle 3 of cisplatin and etoposide on October 19, 2023.Cycle 4 of cisplatin and etoposide on November 09, 2023. Idiopathic peripheral neuropathy [id number] G60.9 Patient with history of peripheral neuropathy . Currently on gabapentin 600 mg 4 times a day. Refill for gabapentin sent. [id number] Pernell Araujo MD [facility] [address] [place] [address] 05/19/2024 10:09:43 05/19/2024 11:23:53 Small cell carcinoma of lung [id number] C34.90 Low-dose lung cancer screening CT on [...] again in another few months. Cigarette smoker [id number] F17.210 Current smoker. Will address smoking cessation as further imaging performed. Anxiety [id number] F41.9 Anxiety with MRI. Will add as needed Valium. Will follow-up Antineopla stic chemotherapy regimen [id number] Z51.11 Cycle 1 of etoposide and cisplatin on September 07, 2023. Chemothera py education performed. Cycle 2 of etoposide and cisplatin on September 28, 2023.Radia tion therapy completed during cycle 2.Cycle 3 of cisplatin and etoposide on October 19, 2023.Cycle 4 of cisplatin and etoposide on November 09, 2023. Idiopathic peripheral neuropathy 42211026 G60.9 Patient with history of peripheral neuropathy . Currently on gabapentin 600 mg 4 times a day. Refill for gabapentin sent. [id number] Irene Johns M.D [facility] [address] [place] [address] [place] [phone] 07/19/2024 15:01:50 07/19/2024 16:16:02 Dyspnea [id number] R06.00 Nicotine dependence 5629 4008 Z87.891 Gastroesop hageal reflux disease without esophagitis [id number] K21.9 Nodule of lung [id number] R91.1 Small cell carcinoma of lung [id number] C34.90 Health Concerns Section Related Observation LastModified by Organization Detai ls LastModified Time None Recorded Concern Status LastModified by Organization Details LastModified Time None Recorded Advance Directives Directive N: Payers Insurance Date Sequence Insurance Name Policy Number Policy Hutson Covered Member ID Hutson Member ID Guarantor Name 05/19/2024 1 [place] [id number] Teresa Rivera [id number] Teresa Rivera 09/10/2024 1 [facility] (MEDICAID REPLACEMENT - HMO) Teresa Rivera [id number] Teresa Rivera Notes Date Note Type Note [...] hoarse after having treatments. Irene Johns M.D [address] [place] [address], [address], [place], [address], [facility] - [place] & [place] 01/25/2024 16:26:43 02/08/2024 text/html 63 yo F [...] Hopeful continued observation only. Pernell Araujo MD [address] [facility], [place], [address], [place] [facility] [place] [facility] [place] 02/08/2024 10:31:17 05/19/2024 text/html 63 yo F [...] another few months. Pernell Araujo MD [address] [facility], [place], [address], [place] [facility] & [place] 05/19/2024 11:51:12 07/19/2024 text/html Patient is a [...] hospitalization for breathing issues. Irene Johns M.D [address] [place] [address], [address], [place], [address], [place] [facility] & [place] 07/19/2024 17:02:42 OBGyn Episode No OBEpisode recorded.
--- OUTSIDE RECORDS SUMMARY | 2025-02-10 13:41 | XMS_ITS | Data Portability ---
Author Organization [facility] Address [address] [place] [address] Assessment Encounter Date Assessment Date Assessment LastModified by Organization Details LastModified Time 12/02/2021 12/02/2021 Patient tolerated procedure well. Advised that mild vaginal discharge may occur for 24hrs and spotting for 48hrs. Patient will report passage of clots, onset of profuse bleeding, foul vaginal odor, fever and/or pelvic pain. [email or web address] Not available 12/02/2021 10:59:59 Plan of Treatment Reminders Order Date Submit Date Provider Last Modified By Organization Details Last Modified Time Details Appointments None recorded. Lab test, urine 2021 022 [facility] [employer], [address] [place] [address] , [place], [address], 2 12:54:31 cytology report, thin prep, smear or scraping, cervical or vaginal 2021 022 [facility], [address], [place], [address], 2 15:09:24 pathology study 2021 022 [facility], [address], [place], [address], 2 15:09:26 pathology study 2021 022 [facility], [address], [address], [place], [address], 15:09:59 HbA1c (hemoglobin A1c), blood 2021 [facility], [address], [place], [address], 06:15:19 CMP, serum or plasma 2021 [facility], [address], [place], [address], 06:15:18 lipid panel, serum 2021 [facility], [address], [place], [address], 06:15:19 CBC w/ auto diff 2021 [facility], [address], [place], [address], 06:15:18 Referral gynecologis t referral 2021 [email or web address] Wilma Gunn [employer], [address] [place] [address] Rd, [place], [address], 15:14:49 Procedures None recorded. Surgeries None recorded. Imaging LDCT, chest, for lung cancer screening 2021 [email or web address] [facility]), [address] [place] [address] , [place], [address], 10:05:49 US, transvagina l 2021 [email or web address] [facility] [employer], [address] [place] [address] , [place], [address], 11:51:30 Medication Orders metformin ER 500 mg tablet,exte nded release 24 hr 2021 [employer], [address] [place] [address], [id number], 09:41:16 omeprazole 20 mg capsule,del ayed release 2021 [employer] [facility], [address] [place] [address], [id number], 09:41:14 atorvastati n 40 mg tablet 2021 [employer] [facility], [address] [place] [address], [id number], 09:41:14 gabapentin 600 mg tablet 2021 [facility], [address] [place] [address], [id number], 09:41:15 carvedilol 6.25 mg tablet 2021 [employer] [facility], [address] [place] [address], [id number], 09:41:15 triamterene 37.5 mg-hydrochl orothiazide 25 mg capsule 2021 [facility], [address] [place] [address], [id number], 09:41:16 amlodipine 5 mg tablet 2021 [facility], [address] [place] [address], [id number], 09:41:15 cyanocobala min (vit B-12) ER 1,000 mcg tablet,exte nded release 2021 [facility], [address] [place] [address], [id number], 09:41:14 Patient TargetsNo targets recorded. Patient Instructions Encounter Date Encounter Id Patient Instructions Last Modified By Organization Details Last Modified Time 09/13/2021 [id number] learning about t ype 2 diabetes [email or web address] Not available 09/13/2021 09:23:25 type 2 diabetes: care instructions [email or web address] Not available 09/13/2021 09:23:25 gastroesophageal reflux disease (GERD): care instructions [email or web address] Not available 09/13/2021 09:23:25 high cholesterol : care instructions [email or web address] Not available 09/13/2021 09:23:25 vaginal bleeding after menopause: care instructions [email or web address] Not available 09/13/2021 09:35:03 high blood press ure: care instructions [email or web address] Not available 09/13/2021 09:23:25 learning about h igh blood pressure [email or web address] Not available 09/13/2021 09:23:25 discussed vagina l bleeding she is past due for ULTRASOUND TECHNOL exam will refer to ULTRASOUND TECHNOL for further evaluation and workup pt verbalized understanding, apt made discussed healthy diet and diabetes plan of care f/u in 6 months for routine diabetes visit [email or web address] Not available 09/13/2021 10:53:07 09/25/2021 [id number] 1. Schedule pelv ic ultrasound, OV and endometrial bx in [place] to evaluate PMB. Not available 09/26/2021 19:53:27 10/21/2021 [id number] US images review ed and discussed with Teresa. Anteverted uterus normal size with 2 small intramural fibroids measuring 1.4 and 1.5 cms. Endometrium measured 5 mm. Right and left ovaries small with normal appearance. Endometrial bx done today. Plan topical estrogens intravaginally twice a week if pathology negative. Not available 10/21/2021 11:06:55 12/02/2021 [id number] 1. Findings discussed with patient. Post-procedure instructions [...] procedure reviewed in detail and preformed today. 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 Referring Physician: Evangelina Nguyen, Family Medicine, Encounter Date: 09/13/2021 Results Created Date Observation Date Name Description Value Unit Range Abnormal Flag Note LastModifiedBy Organization Detail LastModifiedTime 09/14/1909/14/2021 CBC WITH DIFFE RENTI AL/PL ATELE T WBC 7.0 x10e3 /uL 3.4-10 .8 Not Available [facility] ([facility]) [address] [facility], [place], [address], 09/14/2021 06:15:18 09/14/19 22 09/14/2021 CBC WITH DIFFE RENTI AL/PL ATELE T RBC 4.67 x10e6 /uL 3.77-5 .28 Not Available [facility] ([facility]) [address] [facility], [place], [address], 09/14/2021 06:15:18 09/14/19 22 09/14/2021 CBC WITH DIFFE RENTI AL/PL ATELE T hemoglobin 14.6 g/dL 11.1-1 5.9 Not Available [facility] ([facility]) [address] [facility], [place], [address], 09/14/2021 06:15:18 09/14/19 22 09/14/2021 CBC WITH DIFFE RENTI AL/PL ATELE T hematocrit 44.4 % 34.0-4 6.6 Not Available [facility] ([facility]) [address] [facility], [place], [address], 09/14/2021 06:15:18 09/14/19 22 09/14/2021 CBC WITH DIFFE RENTI AL/PL ATELE T MCV 95 fL 79-97 Not Available [facility] ([facility]) [address] [place], [address], 09/14/2021 06:15:18 09/14/19 22 09/14/2021 CBC WITH DIFFE RENTI AL/PL ATELE T MCH 31.3 pg 26.6-3 3.0 Not Available [facility] ([facility]) [address] [place], [address], 09/14/2021 06:15:18 09/14/19 22 09/14/2021 CBC WITH DIFFE RENTI AL/PL ATELE T MCHC 32.9 g/dL 31.5-3 5.7 Not Available [facility] ([facility]) [address] [place], [address], 09/14/2021 06:15:18 09/14/19 22 09/14/2021 CBC WITH DIFFE RENTI AL/PL ATELE T RDW 11.8 % 11.7-1 5.4 Not Available [facility] ([facility]) [address] [facility], [place], [address], 09/14/2021 06:15:18 09/14/19 22 09/14/2021 CBC WITH DIFFE RENTI AL/PL ATELE T platelets 178 x10e3 /uL 150-45 0 Not Available [facility] ([facility]) [address] [facility], [place], [address], 09/14/2021 06:15:18 09/14/19 22 09/14/2021 CBC WITH DIFFE RENTI AL/PL ATELE T neutrophils 61 % not estab. Not Available [facility] ([facility]) [address] [facility], [place], [address], 09/14/2021 06:15:18 09/14/19 22 09/14/2021 CBC WITH DIFFE RENTI AL/PL ATELE T lymphs 30 % not estab. Not Available [facility] ([facility]) [address] [facility], [place], [address], 09/14/2021 06:15:18 09/14/19 22 09/14/2021 CBC WITH DIFFE RENTI AL/PL ATELE T monocytes 4 % not estab. Not Available [facility] ([facility]) [address] [facility], [place], [address], 09/14/2021 06:15:18 09/14/19 22 09/14/2021 CBC WITH DIFFE RENTI AL/PL ATELE T eos 4 % not estab. Not Available [facility] ([facility]) [address] [facility], [place], [address], 09/14/2021 06:15:18 09/14/19 22 09/14/2021 CBC WITH DIFFE RENTI AL/PL ATELE T basos 1 % not estab. Not Available [facility] ([facility]) [address] [facility], [place], [address], 09/14/2021 06:15:18 09/14/19 22 09/14/2021 CBC WITH DIFFE RENTI AL/PL ATELE T immature cells [employer] Not Available [facility] ([facility]) [address] [place], [address], 09/14/2021 06:15:18 09/14/19 22 09/14/2021 CBC WITH DIFFE RENTI AL/PL ATELE T neutrophils (absolute) 4.3 x10e3 /uL 1.4-7. 0 Not Available [facility] ([facility]) [address] [place], [address], 09/14/2021 06:15:18 09/14/19 22 09/14/2021 CBC WITH DIFFE RENTI AL/PL ATELE T lymphs (absolute) 2.1 x10e3 /uL 0.7-3. 1 Not Available [facility] ([facility]) [address] [place], [address], 09/14/2021 06:15:18 09/14/19 22 09/14/2021 CBC WITH DIFFE RENTI AL/PL ATELE T monocytes(ab solute) 0.3 x10e3 /uL 0.1-0. 9 Not Available [facility] ([facility]) [address] [place], [address], 09/14/2021 06:15:18 09/14/19 22 09/14/2021 CBC WITH DIFFE RENTI AL/PL ATELE T eos (absolute) 0.3 x10e3 /uL 0.0-0. 4 Not Available [facility] ([facility]) [address] [place], [address], 09/14/2021 06:15:18 09/14/19 22 09/14/2021 CBC WITH DIFFE RENTI AL/PL ATELE T baso (absolute) 0.1 x10e3 /uL 0.0-0. 2 Not Available [facility] ([facility]) [address] [place], [address], 09/14/2021 06:15:18 09/14/19 22 09/14/2021 CBC WITH DIFFE RENTI AL/PL ATELE T immature granulocytes 0 % not estab. Not Available [facility] ([facility]) [address] [facility], [place], [address], 09/14/2021 06:15:18 09/14/19 22 09/14/2021 CBC WITH DIFFE RENTI AL/PL ATELE T immature grans (abs) 0.0 x10e3 /uL 0.0-0. 1 Not Available [facility] ([facility]) [address] [facility], [place], [address], 09/14/2021 06:15:18 09/14/19 22 09/14/2021 CBC WITH DIFFE RENTI AL/PL ATELE T NRBC [employer] Not Available [facility] ([facility]) [address] [facility], [place], [address], 09/14/2021 06:15:18 09/14/19 22 09/14/2021 CBC WITH DIFFE RENTI AL/PL ATELE T hematology comments: [employer] Not Available [facility] ([facility]) [address] [facility], [place], [address], 09/14/2021 06:15:18 09/14/19 22 09/14/2021 COMP. METAB OLIC PANEL (14) glucose 129 mg/dL 65-99 above high normal Not Available [facility] ([facility]) [address] [facility], [place], [address], 09/14/2021 06:15:18 09/14/19 22 09/14/2021 COMP. METAB OLIC PANEL (14) BUN 14 mg/dL 8-27 Not Available [facility] ([facility]) [address] [place], [address], 09/14/2021 06:15:18 09/14/19 22 09/14/2021 COMP. METAB OLIC PANEL (14) creatinine 0.65 mg/dL 0.57-1 .00 Not Available [facility] ([facility]) [address] [place], [address], 09/14/2021 06:15:18 09/14/19 22 09/14/2021 COMP. METAB OLIC PANEL (14) eGFR 101 mL/mi n/1.7 3 >59 Not Available [facility] ([facility]) [address] [facility], [place], [address], 09/14/2021 06:15:18 09/14/19 22 09/14/2021 COMP. METAB OLIC PANEL (14) BUN/creatini ne ratio 22 -28 Not Available [facility] ([facility]) [address] [facility], [place], [address], 09/14/2021 06:15:18 09/14/19 22 09/14/2021 COMP. METAB OLIC PANEL (14) sodium 141 mmol/ L 134-14 4 Not Available [facility] ([facility]) [address] [place], [address], 09/14/2021 06:15:18 09/14/19 22 09/14/2021 COMP. METAB OLIC PANEL (14) potassium 4.3 mmol/ L 3.5-5. 2 Not Available [facility] ([facility]) [address] [place], [address], 09/14/2021 06:15:18 09/14/19 22 09/14/2021 COMP. METAB OLIC PANEL (14) chloride 100 mmol/ L 96-106 Not Available [facility] ([facility]) [address] [place], [address], 09/14/2021 06:15:18 09/14/19 22 09/14/2021 COMP. METAB OLIC PANEL (14) carbon dioxide, total 25 mmol/ L 20-29 Not Available [facility] ([facility] [facility]) [address], [place], [address], 09/14/2021 06:15:18 09/14/19 22 09/14/2021 COMP. METAB OLIC PANEL (14) calcium 9.4 mg/dL 8.7-10 .3 Not Available [facility] ([facility]) [address] [place], [address], 09/14/2021 06:15:18 09/14/19 22 09/14/2021 COMP. METAB OLIC PANEL (14) protein, total 7.2 g/dL 6.0-8. 5 Not Available [facility] ([facility]) [address], [place], [address], 09/14/2021 06:15:18 09/14/19 22 09/14/2021 COMP. METAB OLIC PANEL (14) albumin 4.5 g/dL 3.8-4. 9 Not Available [facility] ([facility] [address] [place], [address], 09/14/2021 06:15:18 09/14/19 22 09/14/2021 COMP. METAB OLIC PANEL (14) globulin, total 2.7 g/dL 1.5-4. 5 Not Available [facility] ([facility]) [address] [facility] [place], [address], 09/14/2021 06:15:18 09/14/19 22 09/14/2021 COMP. METAB OLIC PANEL (14) A/G ratio 1.7 1.2-2. 2 Not Available [facility] ([facility]) [address] [facility] [place], [address], 09/14/2021 06:15:18 09/14/19 22 09/14/2021 COMP. METAB OLIC PANEL (14) bilirubin, total 0.6 mg/dL 0.0-1. 2 Not Available [facility] ([facility]) [address] [facility], [place], [address], 09/14/2021 06:15:18 09/14/19 22 09/14/2021 COMP. METAB OLIC PANEL (14) alkaline phosphatase 90 IU/L 44-121 Not Available [facility] ([facility]) [address] [facility], [place], [address], 09/14/2021 06:15:18 09/14/19 22 09/14/2021 COMP. METAB OLIC PANEL (14) AST (SGOT) 16 IU/L 0-40 Not Available [facility] ([facility]) [address] [place], [address], 09/14/2021 06:15:18 09/14/19 22 09/14/2021 COMP. METAB OLIC PANEL (14) ALT (SGPT) 13 IU/L 0-32 Not Available [facility] ([facility]) [address] [place], [address], 09/14/2021 06:15:18 09/14/19 22 09/14/2021 LIPID PANEL cholesterol, total 124 mg/dL 100-19 9 Not Available [facility] ([facility]) [address] [place], [address], 09/14/2021 06:15:19 09/14/19 22 09/14/2021 LIPID PANEL triglyceride s 67 mg/dL 0-149 Not Available [facility] ([facility]) [address] [place], [address], 09/14/2021 06:15:19 09/14/19 22 09/14/2021 LIPID PANEL HDL cholesterol 47 mg/dL >39 Not Available [facility] ([facility]) [address] [place], [address], 09/14/2021 06:15:19 09/14/19 22 09/14/2021 LIPID PANEL VLDL cholesterol josr 14 mg/dL 5-40 Not Available [facility] ([facility]) [address] [facility], [place], [address], 09/14/2021 06:15:19 09/14/19 22 09/14/2021 LIPID PANEL LDL chol calc ([facility]) 63 mg/dL 0-99 Not Available [facility] ([facility]) [address] [facility], [place], [address], 09/14/2021 06:15:19 09/14/19 22 09/14/2021 LIPID PANEL comment: [employer] Not Available [facility] ([facility]) [address] [facility], [place], [address], 09/14/2021 06:15:19 09/14/1909/14/2021 HEMOG LOBIN A1C hemoglobin A1C 6.8 % 4.8-5. 6 above high normal Predi abete s: 5.7 - 6.4 Diabe carolyn: >6.4 Glyce chyna contr ol for adult s with diabe carolyn: <7.0 Not Available [facility] ([facility]) [address] [facility], [place], [address], 09/14/2021 06:15:19 10/22/1910/23/2021 PATHO LOGY LEEANN Hoskins t Mater ial submi tted: . endom etriu m - ENDOM ETRIA L BIOPS Y Not Available [facility] ([facility]) [address] [facility], [place], [address], 10/23/2021 15:09:58 10/22/1910/23/2021 PATHO LOGBud Hoskins t Diagn osis: ENDOM ETRIU M, [...] TMZ 10/23 1246 Local Not Available [facility] ([facility]) [address] [place], [address], 10/23/2021 15:09:58 10/22/19 22 10/23/2021 PATHO LOGY REPOR T . Commen t Elect shira solo veronika d: . Rishi silverman MD, Patho logis t Not Available [facility] ([facility]) [address] [place], [address], 10/23/2021 15:09:58 10/22/19 22 10/23/2021 PATHO LOGY [...] AV 10/22 1024 Local Not Available [facility] ([facility]) [address] [facility], [place], [address], 10/23/2021 15:09:58 10/22/19 22 10/23/2021 PATHO LOGY REPOR T . Commen t Patho logis t provi ded ICD-1 0: N95.0 Not Available [facility] ([facility]) [address] [facility], [place], [address], 10/23/2021 15:09:58 10/22/19 22 10/23/2021 PATHO LOGY REPOR T . Commen t CPT . 88002 1 Not Available [facility] ([facility]) [address] [facility], [place], [address], 10/23/2021 15:09:58 12/03/19 22 12/04/2021 IGP, APTIM A HPV, RFX 16/18 ,45 diagnosis: Commen t NEGAT SVETLANA FOR INTRA EPITH ELIAL ALONSO N OR SHIRLEY LAUREANO . Not Available [facility] ([facility]) [address] [facility], [place], [address], 12/04/2021 15:09:24 12/03/19 22 12/04/2021 IGP, APTIM A HPV, RFX 16/18 ,45 specimen adequacy: Commen t Satis facto ry for evalu ation . Endoc ervic al and/o r squam ous metap lasti c cells (endo cervi josr compo nent) are prese nt. Not Available [facility] ([facility]) [address] [place], [address], 12/04/2021 15:09:24 12/03/19 22 12/04/2021 IGP, APTIM A HPV, RFX 16/18 ,45 clinician provided ICD10: Gato t R85.6 19 Z12.4 Not Available [facility] ([facility]) [address] [facility], [place], [address], 12/04/2021 15:09:24 12/03/19 22 12/04/2021 IGP, APTIM A HPV, RFX 16/18 ,45 performed by: Gato Chavez , Cytot echno logis t (ASCP ) Not Available [facility] ([facility]) [address] [place], [address], 12/04/2021 15:09:24 12/03/19 22 12/04/2021 IGP, APTIM A HPV, RFX 16/18 ,45 electronical ly signed by: Gato Nieves MD, Patho logis t Not Available [facility] ([facility]) [address] [place], [address], 12/04/2021 15:09:24 12/03/19 22 12/04/2021 IGP, APTIM A HPV, RFX 16/18 ,45 . . Not Available [facility] ([facility]) [address] [place], [address], 12/04/2021 15:09:24 12/03/19 22 12/04/2021 IGP, APTIM [...] ts do occur . Not Available [facility] ([facility]) [address] [place], [address], 12/04/2021 15:09:24 12/03/19 22 12/04/2021 IGP, APTIM A HPV, RFX 16/18 ,45 test methodology: Commen t This liqui d based ThinP rep(R ) pap test was ross rome with the use of an image guide meg wagner Not Available [facility] ([facility]) [address] [facility], [place], [address], 12/04/2021 15:09:24 12/03/19 22 12/04/2021 IGP, APTIM A HPV, RFX 16/18 ,45 HPV aptima Negati ve negati ve This nucle ic acid ampli ficat ion test detec ts fourt een high- risk HPV types (16,1 8,31, 33,35 ,39,4 5,51, 52,56 ,58,5 9,66, 68) witho ut diffe renti ation . Not Available [facility] ([facility]) [address] [facility], [place], [address], 12/04/2021 15:09:24 12/03/19 22 12/04/2021 PATHO LOGY REPOR T . Commen t Mater ial submi tted: . PART A: endoc ervix - ENDOC ERVIC AL CURET TAGE PART B: cervi x - CERVI JOSR BIOPS Y 1:00. Modif iers: 1:00 Not Available [facility] ([facility]) [address] [facility], [place], [address], 12/04/2021 15:09:26 12/03/19 22 12/04/2021 PATHO LOGY [...] MXB 12/04 1503 Local Not Available [facility] ([facility]) [address] [facility], [place], [address], 12/04/2021 15:09:26 12/03/19 22 12/04/2021 PATHO LOGY REPOR T . Commen t Elect shira solo veronika d: . Manal i Luís dennison MD, Patho logis t Not Available [facility] ([facility]) [address] [facility], [place], [address], 12/04/2021 15:09:26 12/03/19 22 12/04/2021 PATHO LOGY [...] CL 12/03 0614 Local Not Available [facility] ([facility]) [address] [facility], [place], [address], 12/04/2021 15:09:26 12/03/19 22 12/04/2021 PATHO LOGY REPOR T . Commen t CPT . 90765 1, 40772 2 Not Available [facility] ([facility]) [address] [facility], [place], [address], 12/04/2021 15:09:26 12/03/19 22 12/02/2021 pregn pablo test, urine HCG negati ve Not Available [facility] [employer] [address] [place] [address] , [place], [address], 12/02/2021 11:00:01 10/22/19 22 10/21/2021 US, trans vagin al No observ ation record ed. [facility] [employer] [address] [place] [address] , [place], [address], 10/21/2021 11:04:17 10/22/19 22 US, trans vagin al No observ ation record ed. [facility] [employer] [address] [place] [address] , [place], [address], 10/21/2021 12:56:41 10/24/19 22 10/21/2021 US, trans vagin al No observ ation record ed. [email or web address] [facility] [employer] [address] [place] [address] , [place], [address], 10/23/2021 15:29:47 10/24/19 22 10/21/2021 US, trans vagin al No observ ation record ed. BARCODE [facility] [employer] [address] [place] [address] , [place], [address], 10/23/2021 14:26:48 12/25/19 22 12/23/2021 MAMMO , scree amelie, digit al, bilat eral No observ ation record ed. [email or web address] [facility] [address] [facility] , [place], [address], 12/25/2021 14:45:13 12/27/19 22 12/26/2021 - ldct lung ross levy [facility] Name: MARIAJOSE SHARP RA [address] [employer] Phys: Baldo weaver NP, George Clemens [place] [address] : 1960 Age: 61 Sex: F Acct: [id number] Loc: G.CT PHONE #: [phone] Exam Date: 2021 Status : REG CLI FAX #: [phone] Rad# [id number] [phone] Unit# [id number] Admit Date: 2021 EXAMS: CPT CODE: [id number] CT CHEST LDCT LUNG SCREEN G0297 [...] ended. PAGE 1 Signed Report (VIGNESH NUED) [facility] Name: MARIAJOSE SHARP RA [address] [place], [place] [address]a [employer] [facility] Phys: Baldo weaver NP, George [place] [address] : 1960 Age: 61 Sex: F Acct: [id number] Loc: G.CT PHONE #: [phone] Exam Date: 2021 Status : REG CLI FAX #: Rad# [id number] [phone] Unit# [id number] Admit Date: 2021 EXAMS: CPT CODE: [id number] CT CHEST LDCT LUNG SCREEN G0297 [...] sammi: 2021 (1645) Transc riptio nist: DR.CLA KEYONNA Rudd onic Signat ure Date/T sammi: 2021 (1645) Printe d Date/T sammi: 2021 (3988) BATCH NO: N/A PAGE 2 Signed Report CC'ed Logic: Orderi ng Provid er: BALDO Leon Attend ing Provid er: BALDO Leon Referr ing Provid er: BALDO Leon Consul ting Provid er: NATALIYA GEORGE [address] , [place], [address], 01/01/2022 13:53:49 Result Notes None recorded. Problems Name Problem SNOMED Code Status Onset Date Resolution Date Notes Provider Name and Address Organization Details Recorded Time Type 2 diabetes mellitus 09027768 Active 2016 Marytaylor Pradhan null, [place] - [facility] 7 15:12:55 Essential hypertension 34758051 Active 2016 Mary Pradhan null, [place] - [facility] 7 15:13:21 Osteoarthritis 614426990 Active 2018 Paola Hyde null, [place] - [facility] 9 13:26:22 Hyperlipidemia 88854305 Active 2019 Marytaylor Pradhan null, [place] - [facility] 0 09:00:41 Chronic obstructive pulmonary disease 86098689 Active 2020 Gloria Kumar null, [place] - [facility] 1 08:56:26 Gastroesophage al reflux disease 098237484 Active 2020 Gloria Kumar null, [place] - [facility] 1 08:57:37 Nausea 973328974 Active 2020 Paola [place], [place] - [facility] 09:01:42 Problem Notes None recorded. Procedures Surgical History Date Name Laterality Status Provider Name and Address Organization Details Recorded Time 12/03/19 22 Colposcopy completed Wilma Ocampo APRN [address], [place], [address], [place] - [facility] 12/02/2021 12:50:52 12/03/19 22 Colposcopy completed Wilma OcampoTENN [address], [place], [address], [place] [facility] 12/02/2021 12:54:48 12/03/19 22 Colposcopy completed Wilma OcampoTENN [address], [place], [address], [place] [facility] 12/06/2021 09:17:32 10/22/19 22 Endometrial Biopsy completed Wilma Ocampo SIGNS AND DISPLAYS SALES REPRESENTATIVE [address], [place], [address], [place] - [facility] 10/21/2021 11:08:39 10/22/19 22 Endometrial Biopsy completed Wilma Ocampo, SIGNS AND DISPLAYS SALES REPRESENTATIVE [address], [place], [address], [place] - [facility] 10/29/2021 08:09:56 06/17/19 22 Positive Microalbumin completed Timo Knapp [place] - [facility] 06/17/2021 10:02:53 12/19/19 21 Date of Last Mammogram completed Shahana Rivas [place] - [facility] 09/25/2021 16:05:26 04/09/20 20 Date of Last Pap Smear completed Shahana [place] - [facility] 09/25/2021 16:03:39 09/29/19 20 Systolic B/P less than 130 mm Hg completed Becky Albarran [place] - [facility] 09/29/2019 08:58:44 09/29/19 20 Diastolic B/P 80-89 mm Hg completed Becky Albarran [place] - [facility] 09/29/2019 08:58:47 06/03/19 19 Systolic B/P less than 130 mm Hg completed Becky Albarran [place] - [facility] 06/03/2018 12:58:45 06/03/19 19 Diastolic B/P 80-89 mm Hg completed Becky EN[place] [facility] 06/03/2018 12:58:48 Tympanic membrane repair completed Mary ENGLAND [facility] 09/16/2016 15:15:30 Tubal Ligation completed Mary ENGLAND [facility] 09/16/2016 15:15:39 Imaging Results None recorded. Procedure Notes None recorded. Medical Equipment None Reported. Allergies Allergen ID Allergen Name Allergen Category Reaction Reaction Severity Criticality Documentation Date Start Date Code Code System Note Provider Name and Address Organization Details Recorded Time 100877 meloxicam medicatio n Not available Not available Not available 09/29/2019 18063 RxNorm [place] Humphries [facility] 0 08:50:26 328463 lisinopri l medicatio n cough Not available Not available 09/29/2019 16942 RxNorm [place] Humphries [facility] 0 08:50:49 42066 Keflex medicatio n Not available Not available Not available 02/22/2016201216 7 RxNorm Not Available formerly [facility] 6 10:16:19 Medications Name Sig Start Date [...] Available Not Available Not Available Dexcom 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 SUGAR DIRECTED active Not Available Not Available No t Available Dexcom G6 Transmitt er device active Not Available Not Available No t Available Vitals Date Recorded Body height Body mass index (BMI) Body weight Body temperature Heart rate Oxygen saturation Oxygen saturation in Arterial blood by Pulse oximetry Respiratory rate Pain severity - 0-10 verbal numeric rating [Score] - Reported Systolic And Diastolic Provider Name and Address Organization Details Last Updated DateTime 2 170.18 cm 34.5 kg/m2 89053.3 2 g 98 [degF] 86 /min 99 % 99 % 19 /min 0 110/70 mm[Hg] Timo Knapp [place] - [facility] 2 08:58:16 Date Recorded Body height Body mass index (BMI) Body weight Pain severity - 0-10 verbal numeric rating [Score] - Reported Systolic And Diastolic Provider Name and Address Organization Details Last Updated DateTime 09/25/2021 170.18 cm 33 kg/m2 98555.99 g 0 114/72 mm[Hg] Shahana Rivas [place] - [facility] 2 16:10:51 Date Recorded Body height Body mass index (BMI) Body weight Pain severity - 0-10 verbal numeric rating [Score] - Reported Systolic And Diastolic Provider Name and Address Organization Details Last Updated DateTime 10/21/2021 170.18 cm 33 kg/m2 02404.99 g 0 116/70 mm[Hg] Shahana Rivas [place] - [facility] 2 10:42:36 Date Recorded Body height Body mass index (BMI) Body weight Pain severity - 0-10 verbal numeric rating [Score] - Reported Systolic And Diastolic Provider Name and Address Organization Details Last Updated DateTime 12/02/2021 170.18 cm 33 kg/m2 55884.99 g 0 128/70 mm[Hg] Shahana Rivas [facility] 2 11:00:32 Date Recorded Body height Body mass index (BMI) Body weight Pain severity - 0-10 verbal numeric rating [Score] - Reported Systolic And Diastolic Provider Name and Address Organization Details Last Updated DateTime 12/18/2021 170.18 cm 32.7 kg/m2 82571.81 g 0 128/80 mm[Hg] Shahana Rivas [facility] 2 16:36:43 Social History Question Answer Notes LastModified by Organizat ion Details LastModified Time Tobacco Smoking Status Current Every Day Smoker [email or web address] 09/16/2016 15:16:08 Able To Swim? Yes [email or web address] Information not available 09/16/2016 Do You Have An Advance Directive? No Information not available 09/25/2021 Do You Wear A Helmet When Biking? No [email or web address] Information not available 09/16/2016 Are You Blind Or Do You Have Difficulty Seeing? No [email or web address] Information not available 09/16/2016 Is Blood Transfusion Acceptable In An Emergency? Yes [email or web address] Information not available 09/25/2021 What Is Your Level Of Caffeine Consumption? Occasional [email or web address] Information not available 09/16/2016 How Much Tobacco Do You Chew? None [email or web address] Information not available 09/16/2016 In The 14 Days Before Symptom Onset, Have You Had Close Contact With A Laboratory-confir med COVID-19 While That Case Was Ill? No [email or web address] Information not available 09/25/2021 In The 14 Days Before Symptom Onset, Have You Had Close Contact With A Person Who Is Under Investigation For COVID-19 While That Person Was Ill? No [email or web address] Information not available 09/25/2021 Have You Been To An Area Known To Be High Risk For COVID-19? No [email or web address] Information not available 09/25/2021 Are You Deaf Or Do You Have Serious Difficulty Hearing? No [email or web address] Information not available 09/16/2016 What Type Of Diet Are You Following? DIABETIC [email or web address] Information not available 09/16/2016 Which Illicit Or Recreational Drugs Have You Used? None [email or web address] Information not available 09/16/2016 Have You Processed Blood Or Body Fluids From An Ebola Virus Disease Patient Without Appropriate PPE? No [email or web address] Information not available 09/25/2021 Do You Reside In Or Have You Traveled To An Area Where Ebola Virus Transmission Is Active? No [email or web address] Information not available 09/25/2021 What Is The Highest Grade Or Level Of School You Have Completed Or The Highest Degree You Have Received? [id number] [email or web address] Information not available 12/18/2021 Swimming/diving No [email or web address] Informati on not available 09/16/2016 Have There Been Any Changes To Your Family Or Social Situation? No [email or web address] Information no t available 12/18/2021 What Is The Fluoride Status Of Your Home? Fluoridated [email or web address] Information not available 09/25/2021 Hard Of Hearing Or Deaf In One Or Both Ears? No Information not available 09/16/2016 Have You Recently Or Are You Planning To Travel To An Area With Zika Virus? No [email or web address] Information not available 09/25/2021 Legally Blind In One Or Both Eyes? No [email or web address] Information no t available 09/16/2016 Live Alone Or With Others? With Others [email or web address] Information not available 09/16/2016 Do You Have A Medical Power Of Manufacturing Engineering Technologist? No [email or web address] Information not available 09/25/2021 What Was The Date Of Your Most Recent Tobacco Screening? 11/26/2020 Information not available 11/26/2020 Do You Use Protection During Sex? No [email or web address] Information not available 09/25/2021 Do You Use Protection Against STDs? No [email or web address] Information not available 09/25/2021 What Is Your Relationship Status? [email or web address] Information not available 10/30/2016 Seat Belts Used Routinely Yes [email or web address] Information not available 09/16/2016 Are You Sexually Active? Yes [email or web address] Information not available 09/25/2021 Smoke Alarm In Home Yes [email or web address] Information not available 09/16/2016 Do You Have Smoke And Carbon Monoxide Detectors In Your Home? Yes [email or web address] Information not available 12/18/2021 At What Age Did You Start Smoking Tobacco? 14 [email or web address] Information not available 09/25/2021 Are You Passively Exposed To Smoke? Yes [email or web address] Information no t available 09/16/2016 How Much Tobacco Do You Smoke? 1 PPD hriker1 Information not available 09/29/2019 General Stress Level Low Information not available 09/16/2016 Do You Use Sunscreen Routinely? Yes [email or web address] Information not available 09/16/2016 Has Tobacco Cessation Counseling Been Provided? Yes Information not available 09/16/2016 On What Date Was Tobacco Cessation Counseling Provided? 11/26/2020 Information not available 11/26/2020 How Many Years Have You Smoked Tobacco? 20 Information not available 01/18/2019 Do You Have Difficulty Walking Or Climbing Stairs? No [email or web address] Information not available 09/16/2016 What Contraceptive Method Was Reported At Start Of This Visit? None [email or web address] Information not available 09/25/2021 What Contraceptive Method Was Reported At End Of This Visit? None [email or web address] Information not available 09/25/2021 Do You Want To Talk About Contraception Or Prevention During Your Visit Today? No - I Do Not Want To Talk About Contraception Today Because I Am Here For Something Else [email or web address] Information not available 09/25/2021 Do You Have Any Future Plans To Get ? No, I Don't Want To Become [email or web address] Information not available 09/25/2021 What Is Your Reason For Having No Contraceptive Method At Start Of This Visit? Other [email or web address] Information not available 09/25/2021 Sex: Female Functional Status Question Answer Note LastModified by Organizat ion Details LastModified Time Do you or have you ever used smokeless tobacco? Former smokeless tobacco user Information not available 01/18/2019 Are you currently employed? No Information not available 09/16/2016 Do you have access to reliable transportation? No [email or web address] Information not available 12/02/2021 Are you able to care for yourself independently? Yes [email or web address] Information not available 09/16/2016 Do you have difficulty dressing, bathing, grooming, or toileting? No [email or web address] Information not available 09/16/2016 Do you or have you ever used e-cigarettes or vape? Never used electronic cigarettes Information not available 01/18/2019 What is your exercise level? Occasional [email or web address] Information not available 09/16/2016 Do you use any illicit or recreational drugs? No [email or web address] Information not available 09/25/2021 Do you or have you ever used any other forms of tobacco or nicotine? No Information not available 09/25/2021 What is your level of alcohol consumption? None Information not available 09/16/2016 What is your status? Not [email or web address] Information no t available 09/25/2021 Are you able to walk independently without assistance or assistive devices? YESWOREST [email or web address] Information not available 09/16/2016 Do you have difficulty doing errands alone? No [email or web address] Information not available 09/16/2016 Mental Status Question Answer Note LastModified by Organizat ion Details LastModified Time Do you feel stressed (tense, restless, nervous, or anxious, or unable to sleep at night)? [id number] [email or web address] Information not available 12/18/2021 Do you have difficulty concentrating, remembering or making decisions? No [email or web address] Information no t available 09/16/2016 Family History Relationship Description Onset Age of this Age Resolved Age Notes LastModified by Organization Details LastModified Time Mother Blindness of one eye [email or web address] Not available 2016 15:18:12 Mother Type 2 diabetes mellitus [email or web address] Not available 2016 15:18:34 Mother Kidney disease peuxuqf49 Not available 2016 15:19:12 Mother Myocardial infarction [email or web address] Not available 09/16 15:19:26 Father Type 2 diabetes mellitus [email or web address] Not available 2016 15:18:34 Father Myocardial infarction [email or web address] Not available 09/16 15:19:26 Sister Fibromyalgia [email or web address] Not avai lable 09/16/2016 15:18:53 Sister Osteoarthrit is Not available 2016 15:20:30 Medical History Condition Response Pancreatitis N Coronary Artery Disease N Other N Gout N Atrial Fibrillation N congenital heart disease N Blood Diseases N Kidney Stones N Hyperthyroidism N Rheumatoid arthritis N Blood [...] N Restless Leg Syndrome N Arthritis N Infertility N Polyps N Carpal Tunnel N Mental Disorder N Acid Reflux (GERD) Y Cancer N Stroke N Varicosities N Tendonitis N Crohn's Disease N Hypercholesterolemia N Skin Cancer N Fibromyalgia N Headaches N Anal Fissure N Irritable Bowel Syndrome [...] colitis N Cerebrovascular Disease N Depression N Guillain-[place] N Sleep Apnea N Aneurysm N Bronchitis [...] Influenza, high-dose, quadrivalent, PF 0 completed Andrea Nicholas, SIGNS AND DISPLAYS SALES REPRESENTATIVE [address], [place], [address], [place] [facility] 02/14/2020 15:06:06 influenza, unspecified formulation 4 completed Not Available formerly [facility] 06/18/2019 02:21:20 influenza, unspecified formulation 4 completed Not Available formerly [facility] 06/18/2019 02:21:20 Influenza, split virus, quadrivalent, preservative 7 completed Not Available formerly [facility] 06/04/2019 03:54:37 Influenza, split virus, quadrivalent, preservative 1 completed Timo Knapp null, [place] - [facility] 03/13/2021 10:03:07 Tdap 8 completed Not Available formerly [facility] 06/04/2019 03:54:59 Hep A, adult 8 completed Not Available [facility] 06/04/2019 03:55:12 Influenza, split virus, quadrivalent, PF 8 completed Not Available [facility] 06/04/2019 03:55:22 SARS-COV-2 (COVID-19) vaccine, UNSPECIFIED 1 completed Gloria Kumar null, [place] - [facility] 08/27/2020 08:54:32 SARS-COV-2 (COVID-19) vaccine, UNSPECIFIED 1 completed Gloria [place], [place] [facility] 08/27/2020 08:54:40 COVID-19, mRNA, LNP-S, PF, 100 mcg/0.5mL dose or 50 mcg/0.25mL dose 1 completed [place] - [facility] 02/27/2021 08:17:20 zoster recombinant 9 completed Not Available formerly [facility] 06/04/2019 03:55:40 pneumococcal polysaccharide PPV23 9 completed Not Available [facility] 06/04/2019 03:55:37 Hep A, adult 9 completed Not Available [facility] 06/04/2019 03:55:40 Influenza, split virus, quadrivalent, PF 9 completed Not Available [facility] 06/04/2019 03:56:04 Past Encounters Encounter ID Performer Location Encounter Start Date Encounter Closed Date Diagnosis/Indication Diagnosis SNOMED-CT Code Diagnosis ICD10 Code Diagnosis IMO Codes Diagnosis Note [id number] SHARDA Carpenter [place] [address] [facility] LEARYAngela [facility] [place] [address] 06/03/2016 12:19:27 06/03/2016 13:33:18 Screening mammography 52057688 Z12.31 Abscess 828473634 L02.91 Essential hypertension 81167433 I10 Diabetes mellitus 417066 09 E11.9 [id number] SHARDA Carpenter [place] [address] [facility] BRAUN [facility] [place] [address] 07/04/2016 10:40:44 07/04/2016 11:37:42 Upper respiratory infection 53314063 J06.9 Acute bronchitis 6748586 2 J20.9 Bronchitis 94577937 J40 Cough 12259060 R05 [id number] SHARDA Carpenter [place] [address] Debbrengene BRAUN [facility] [place] [address] 07/22/2016 10:56:16 07/22/2016 12:00:19 Cough 86400213 R05 Bronchitis 67604925 J40 Acute bronchitis 3370563 2 J20.9 Trying to give up smoking 967424296 Z72.0 [id number] SHARDA Carpenter [place] [address] Emelina BRAUN [facility] [place] [address] 08/15/2016 09:20:34 08/15/2016 11:00:35 Essential hypertension 54836732 I10 Chronic ob structive pulmonary disease 42757883 J44.9 Diabetes mellitus 570454 09 E11.9 Type 2 munira betes mellitus 14152038 E11.9 Tobacco user 351911226 Z 72.0 [id number] Andrea Nicholas APRN Nellyangela [place] [address] [facility] [place] [address] 09/16/2016 14:49:34 09/16/2016 16:19:00 Acute sinusitis 44242796 J01.90 [id number] SHARDA Carpentergraceangela [place] [address] [facility] [place] [address] 10/30/2016 13:47:08 10/30/2016 16:08:25 Body mass index 30+ - obesity 936546358 Z68.39 Pain of joint 60773607 M 25.50 [id number] Paola Hyde APRN Nellyangela [place] [address] [facility] [place] [address] 12/18/2016 09:04:39 12/18/2016 09:51:19 Long-term drug therapy 857026415 Z79.899 Wasp sting 802322743 T63 .461A Pain of joint 16717076 M 25.50 [id number] Paola Hyde APRN Nellyangela [place] [address] [facility] [place] [address] 02/02/2017 09:35:32 02/02/2017 10:43:04 Type 2 diabetes mellitus 09808857 E11.9 Diabetes mellitus 342878 09 E11.9 Renewal of prescription 583139068 Z76.0 [facility] 961939964 L02.91 [id number] SHARDA Carpenter [place] [address] [facility] [place] [address] 02/19/2017 15:02:47 02/19/2017 16:30:34 Nicotine dependence 00799406 F17.200 Administra tion of influenza vaccine 53263338 Z23 [id number] Paola Mary Ellen SHARDA [place] [address] [place] [address] 05/28/2017 12:52:54 05/28/2017 13:56:18 Pain of joint 58671083 M25.50 Renewal of prescription 141046260 Z76.0 Screening mammography 24 856824 Z12.31 Diabetes mellitus 571067 09 E11.9 [id number] Paola DatelandTENN [place] [address] [place] [address] 07/07/2017 13:43:26 07/07/2017 14:48:04 Acute exacerbation of chronic obstructive pulmonary disease 160999171 J44.1 Candidiasis of vagina 72 018373 B37.3 [id number] Paola DatelandTENN [place] [address] [place] [address] 07/16/2017 10:05:38 07/16/2017 12:37:12 Acute exacerbation of chronic obstructive pulmonary disease 341668227 J44.1 Pneumonia 099590859 J18. 9 rtc in 7 to 10 days for follow up cxr [id number] Paola Hyde APRN [place] [address] Emelina [facility]RA[facility] [place] [address] 08/27/2017 08:34:53 08/27/2017 10:05:42 Renewal of prescription 462670533 Z76.0 Essential hypertension 46171123 I10 Type 2 munira betes mellitus 53749523 E11.37X1 [id number] Paola Mary EllenTENN [place] [address] Emelina [facility]RAUN [facility] [place] [address] 09/03/2017 08:25:23 09/03/2017 09:54:08 Adult health examination 747201777 Z00.00 Depression screening 171 620837 Z13.89 Examinatio n of blood pressure 850437589 Z01.30 Diet education 59339963 Z71.3 Counseling 668611087 Z71 .82 Exercise counseling . Patient encouraged to exercise 30 minutes 5 days a week. Gynecologi c examination 14684767 Z01.419 Diabetes mellitus 732852 09 E11.9 Body mass index 30+ - obesity 902084616 Z68.39 Administra tion of diphtheria, pertussis, and tetanus vaccine 022649170 Z23 Active or passive immunization 366070666 Z23 [id number] SHARDA Carpenter [place] [address] Emelina dennison [place] [address] 10/20/2017 13:07:14 10/20/2017 13:58:05 Acute bronchitis 55832673 J20.9 Cough 43864307 R05 [id number] [facility]el[facility] [place] [address] Emelina dennison [place] [address] 10/26/2017 14:37:16 10/26/2017 15:17:01 Upper respiratory infection 66683962 J06.9 discussed that this is likely viral and will need to run its course; given copd history will tx with augmentin (completes a course of levaquin) and a steroid course. [id number] SHARDA Carpenter [place] [address] Emelina dennison [place] [address] 11/26/2017 10:21:57 11/26/2017 13:13:20 History of surgical procedure on mouth 528086236 Z98.890 keep scheduled appointmen t with surgeon for follow up [id number] SHARDA Carpenterrikkialejandra [place] [address] Emelina dennison [place] [address] 02/08/2018 08:01:56 02/08/2018 09:53:45 Renewal of prescription 793107260 Z76.0 Essential hypertension 36153168 I10 Diabetes mellitus 604048 09 E11.9 Type 2 munira betes mellitus without complication 801504444 E11.9 Eruption 732566361 R21 Anxiety 01785606 F41.9 Active or passive immunization 374261216 Z23 Nicotine dependence 5629 4008 F17.200 Pain of joint 48981348 M 25.50 [id number] SHARDA Carpenter [place] [address] Emelina dennison [place] [address] 02/18/2018 09:09:57 02/18/2018 11:17:23 Nausea 903460539 R11.0 discontinu e zoloft, bland diet, rtc in one week to consider new medication for anxiety. rtc sooner if symptoms worsen. [id number] Paola TEN HydeN [place] [address] [place], [place] [address] 04/06/2018 11:22:42 04/06/2018 12:24:21 Anxiety 86507563 F41.9 [id number] Paola ColungaeyTENN [place] [address] [place], [place] [address] 06/03/2018 12:48:10 06/03/2018 13:42:22 Tobacco dependence syndrome 19306498 F17.200 Osteoarthritis 571049345 M19.90 Vitamin D deficiency 347 69174 E55.9 Disorder o f vitamin B12 227322684 E53.8 Acute bronchitis 1951775 2 J20.9 [id number] Paola Hyde APRN [place] [address] Emelina denn[address] [place], [place] [address] 06/17/2018 09:43:02 06/17/2018 10:40:32 Active or passive immunization 020520981 Z23 Tobacco de pendence syndrome 73773768 F17.755 [id number] Paola Hyde APRN [place] [address] Emelina dennison [address], [place] [address] 08/09/2018 08:44:18 08/09/2018 09:59:01 Type 2 diabetes mellitus 46040642 E11.37X1 Type 2 munira betes mellitus without complication 884402957 E11.9 Pain of joint 12276855 M 25.50 [id number] Paola Mary EllenSHARDA corcoran [place] [address] [place], [place] [address] 09/03/2018 09:21:00 09/03/2018 10:32:58 Active or passive immunization 548016014 Z23 Type 2 munira betes mellitus 22977052 E11.37X1 Vitamin D deficiency 347 61607 E55.9 Neuropathy 058394660 G62 .9 [id number] Paola Hyde APRN Diana [facility] [address] [place] DIANA [facility] [place] [address] 12/24/2018 08:21:01 12/24/2018 09:44:40 Pain in left arm 208825803 M79.602 Type 2 munira betes mellitus 72030762 E11.37X1 Acute exac erbation of chronic obstructive pulmonary disease 743189269 J44.1 [id number] Paola Hyde APRN Nellyangela [facility] [address] [place] DIANA [facility] [place] [address] 01/27/2019 14:10:48 01/27/2019 15:17:24 Disorder of vitamin B12 694719514 E53.8 Renewal of prescription 829804601 Z76.0 Diabetes mellitus 431208 09 E11.9 Pain of oulder region 79003150 M25.519 Long-term drug therapy 427027622 Z79.899 Shoulder joint pain 2679 59110 M25.519 Pain in left arm 4885657 00 M79.800 [id number] Paola Hyde APRN [place] [address] Emelina dennison Arm[place] DIANA [facility] [place] [address] 02/11/2019 10:05:35 02/11/2019 12:42:20 Osteoarthritis 393312981 M19.90 Administra tion of influenza vaccine 73218755 Z23 Pain of oulder region 26106488 M25.916 [id number] Paola Hyde APRN Nellyangela [facility] [address] DIANA [facility] [place] [address] 03/31/2019 09:00:10 03/31/2019 10:23:19 Type 2 diabetes mellitus 10249562 E11.37X1 Renewal of prescription 896854941 Z76.0 Pain of oulder region 43777197 M25.519 Disorder o f vitamin B12 535417480 E53.8 Neuropathy 460039838 G62 .9 [id number] Paola Hyde APRN Nellyangela [place] [address] Emelina dennison Armando DIANA [facility] [place] [address] 05/09/2019 14:33:37 05/09/2019 15:41:47 Bronchitis 06915337 J40 rtc as needed [id number] SHARDA Carpenter [place] [address] Emelina dennison [place] [address] 07/01/2019 08:49:24 07/01/2019 10:21:21 Type 2 diabetes mellitus 39418220 E11.37X1 Sinusitis 31462772 J32.9 Bronchitis 23090286 J40 rtc as needed Neuropathy 993998002 G62 .9 Renewal of prescription 737277636 Z76.0 Cough 30136967 R05 [id number] SHARDA Carpenter [place] [address] Emelina dennison Arm[address] LEARYLuís[place] [address] 09/29/2019 08:45:47 09/29/2019 09:20:29 Type 2 diabetes mellitus 54410008 E11.37X1 Renewal of prescription 827189397 Z76.0 Osteoarthritis 529277646 M19.90 Nausea 793115715 R11.0 discontinu e zoloft, bland diet, rtc in one week to consider new medication for anxiety. rtc sooner if symptoms worsen. Neuropathy 446578627 G62 .9 [id number] SHARDA Carpenter [place] [address] [address] [place] [address] 01/03/2020 08:05:23 01/03/2020 09:16:59 Type 2 diabetes mellitus 13432733 E11.37X1 Body mass index 30+ - obesity 742339892 Z68.39 Renewal of prescription 497103630 Z76.0 Candidiasis of vagina 72 164630 B37.3 Long-term drug therapy 419254099 Z79.899 Neuropathy 436207035 G62 .9 [id number] SHARDA Bates [address] [place] [address] De[address] [place] [address] 02/14/2020 14:42:27 02/14/2020 14:57:25 Administration of influenza vaccine 53694605 Z23 [id number] SHARDA Carpenter [address] [address] [place] [address] 04/09/2020 08:30:50 04/09/2020 10:05:41 General examination of patient 136781554 Z00.00 Screening for cardiovascular system disease 955353845 Z13.6 Screening mammography 24 892932 Z12.31 Exercises education, guidance, and counseling 829150685 Z71.82 Dietary ma nagement surveillance 244244488 Z71.3 Type 2 munira betes mellitus 20385167 E11.37X1 Hyperlipidemia 48809656 E78.5 Renewal of prescription 484883054 Z76.0 Cough 40229535 R05 [id number] SHARDA Carpenter [address] [address] [place] [address] 08/27/2020 08:33:56 08/27/2020 09:30:32 Type 2 diabetes mellitus 72830770 E11.37X1 will call with results Essential hypertension 19990153 I10 controlled with medication s, will call with results Hyperlipidemia 10190420 E78.5 controlled with medication , will call with results Osteoarthritis 146861847 M19.90 controlled with medication , will call with results Chronic ob structive pulmonary disease 78356385 J44.9 controlled with medicaton Gastroesop hageal reflux disease 419390391 K21.9 controlled with medication Arthritis 6206771 M19.90 controlled with medication [id number] SHARDA Carpenter [facility] [address] [place] [address] 09/28/2020 08:42:12 09/28/2020 09:21:40 Osteoarthritis 627029430 M19.90 controlled with medication Type 2 munira betes mellitus 55305820 E11.37X1 stable [id number] SHARDA Carpenter [facility] [address] [place] [address] 11/26/2020 08:03:44 11/26/2020 09:06:48 Type 2 diabetes mellitus 08013361 E11.37X1 stable Nausea 806888492 R11.0 requests refills for episodes of nausea Renewal of prescription 053871091 Z76.0 requests refills Hyperlipidemia 28015698 E78.5 controlled with medication , will call with results Essential hypertension 33052010 I10 controlled with medication s, will call with results Gastroesop hageal reflux disease 095764799 K21.9 controlled with medication Chronic ob structive pulmonary disease 45541045 J44.9 controlled with medicaton Nicotine dependence 5629 4008 F17.200 discussed importance of not smoking Hepatitis C screening 41 0495961 Z11.59 screening Screening mammography 24 509891 Z12.31 screening Screening for malignant neoplasm of colon 367322699 Z12.11 declined workup today. [id number] SHARDA Carpenter [facility] [address] [place] [address] 12/03/2020 08:41:57 12/03/2020 09:27:36 Acute bronchitis 53810047 J20.9 Cough 69259222 R05 do not take gabapentin while on promethazi ne DM [id number] SHARDA Carpenter [facility] [address] EDWARDS[address]Angela [facility] [place] [address] 01/18/2021 15:42:39 01/18/2021 16:57:54 Chronic obstructive pulmonary disease 45637886 J44.9 Acute exac erbation of chronic obstructive pulmonary disease 921066917 J44.1 [id number] SHARDA Carpenter [facility] [address] [place] [address] 01/28/2021 08:55:15 01/28/2021 11:47:26 Acute bronchitis 73577121 J20.9 declined xray today, seek urgent care if symptoms worsen Osteoarthritis 353442933 M19.90 controlled with medication [id number] SHARAD Reed [facility] [address]ela [facility] [place] [address] 02/27/2021 07:44:06 02/27/2021 08:38:17 Type 2 diabetes mellitus 54040673 E11.9 chronic controlled Body mass index 30+ - obesity 151003037 Z68.33 Essential hypertension 77253642 I10 chronic controlled Vitamin D deficiency 347 96181 E55.9 chronic controlled Cobalamin deficiency 190 179654 E53.8 chronic controlled Gastroesop hageal reflux disease 168787584 K21.9 chronic controlled [id number] Evangelina ChepeSHARDA harper Nellyangela [place] [address] [address] [place] [address] 03/01/2021 08:40:39 03/01/2021 10:03:09 Viral screening 352653266 Z11.52 Acute bronchitis 8923061 2 J20.9 [id number] Evangelina Momeredith SHARDA Nellyangela [place] [address] [address] [address] 03/13/2021 09:44:46 03/13/2021 10:03:27 Administration of influenza vaccine 37213493 Z23 Body mass index 30+ - obesity 386400706 Z68.33 Type 2 munira betes mellitus 04673281 E11.9 chronic uncontroll ed [id number] Evangelina TrueSHARDA harper Nellyangela [place] [address] [address] [address] 06/17/2021 09:49:08 06/17/2021 10:17:14 Type 2 diabetes mellitus 74690401 E11.9 chronic uncontroll ed Essential hypertension 61940783 I10 chronic controlled Hyperlipidemia 02211543 E78.5 chronic controlled [id number] Evangelina Nguyen APRN [place] [address] [address] [place] [address] 09/13/2021 08:28:03 09/13/2021 09:43:19 Type 2 diabetes mellitus 62396968 E11.9 chronic uncontroll ed Essential hypertension 11139192 I10 chronic controlled Gastroesop hageal reflux disease 947255690 K21.9 chronic controlled Hyperlipidemia 09641653 E78.5 chronic controlled Cobalamin deficiency 190 547085 E53.8 chronic controlled Chronic back pain 875935 002 M54.9 chronic, worsening at times, panchito reviewed appropriat e Postmenopa usal bleeding 60699455 N95.0 been going on for about a year, also reports capps with intercours e [id number] Wilma Ocampo APRN [place] [address] [address] [address] 09/25/2021 15:18:40 09/25/2021 16:35:21 Postmenopausal bleeding 62080841 N95.0 Essential hypertension 74883475 I10 Type 2 munira betes mellitus 73593740 E11.9 Body mass index 30+ - obesity 857302166 Z68.33 Postcoital bleeding 4888 0000 N93.0 [id number] SHARDA Enriquez [employer] EQU[employer]MENT [employer] [address] [place] [address] 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 [address] [place] [address] SAMANTA Mercedes [address] 12/02/2021 10:38:57 12/02/2021 11:40:06 Abnormal cytology findings 245219303 R89.6 Screening for malignant neoplasm of cervix 546508051 Z12.4 [id number] Wilma SHARDA Ocampo [facility] [address] [place] [address] 12/18/2021 15:46:58 12/18/2021 17:05:35 Routine gynecologic examination done 4604654847 9101 Z01.419 Examinatio n of blood pressure 460508840 Z01.30 BP goal < 140/90 Depression screening 171 884656 Z13.31 Diet education 26039231 Z71.3 5662-1668 calorie diet recommende d with an emphasis on reducing sugar and refined carbohydra carolyn, avoiding highly processed foods and decreasing saturated fats. She declines dietary consult. Counseling 547920827 Z71 .82 Exercise counselindio shanks. Patient encouraged to exercise 30 minutes 5 days a week. Screening for malignant neoplasm of breast 077846397 Z12.31 Scheduled for 12-23-21 Screening for malignant neoplasm of colon 217602348 Z12.11 declines Screening for malignant neoplasm of respiratory tract 635815877 Z12.2 Body mass index 30+ - obesity 369710976 Z68.32 Cigarette smoker 0764457 7 F17.210 Tobacco use discourage d. Techniques for quitting smoking discussed including pharmaceut icals (Nicotine patches, gum, Zyban, and Chantix) and behavioral therapy (Rob Escobedo). Immediate and watermaster cardiovasc ular and respirator y benefits of smoking cessation discussed. Lung cancer risk reduction also discussed. Chronic ob structive pulmonary disease 37804157 J44.9 Essential hypertension 17592962 I10 Type 2 munira betes mellitus 22594454 E11.65 History of tubal ligation 671341704 Z98.51 Health Concerns Section Related Observation LastModified by Organization Detai ls LastModified Time None Recorded Concern Status LastModified by Organization Details LastModified Time None Recorded Advance Directives Directive N: Payers Insurance Date Sequence Insurance Name Policy Number Policy Hutson Covered Member ID Hutson Member ID Guarantor Name 02/18/2017 1 PASSPORT BY [employer]. (MEDICAID REPLACEMENT - HMO) Teresa Rivera [id number] Teresa Rivera 01/25/2022 1 [place]: GRIFFIN GARCIA OF [place] - MEDICAID (HMO) [id number] Teresa Rivera [id number] Teresa Rivera 01/25/2022 MEDICAID-[facility] WRAP BILLING (MEDICAID) Teresa Rivera [id number] Teresa Rivera 07/15/2016 1 UNSPECIFIED REMIT PAYOR Teresa Rivera 06/03/2018 1 PASSPORT BY [employer] (MEDICAID REPLACEMENT - HMO) MEDICAID Teresa Rivera [id number] Teresa Rivera Notes Date Note Type Note Provider Name and Address Organization Details Recorded Time 09/13/2021 text/html Diabetes F/URepo rted by PatientHPIFor labs, patient reportslast a1c result: 7.1. For context, patient reportsnot missing doses of medicationsandno side effects from medications. For review finger sticks, (doesn't check). Evangelina Nguyen, SIGNS AND DISPLAYS SALES REPRESENTATIVE [address], [place], [address], [place] - [facility] 09/13/2021 10:53:24 09/25/2021 text/html Post Menopausal BleedingReported by PatientHPIFor quality, patient reportsspottingbut reportslight. For onset/timing, patient reportspast 3-5 cycles. For duration, patient reports7-10 days/month. For context, patient reportsoccurs after intercourse,current contraception: (tubal), andpostmenopausal. For associated symptoms, patient reportsno dysmenorrhea,no pelvic pain,no abdominal pain,no dyspareunia,no fatigue,no dizziness,no iron/anemia supplements,no shortness of breath,no cp/palpitations,no bloating,no change in bowel function,no changes in urinary function,no pms,no vaginal discharge, andno vaginal itching/irritation. Teresa is here with c/o intermittent bleeding x 1 year sometimes following SI and sometimes following heavy lifting. Last episode of spotting was the end of August after lifting her grandchild. She denies any pain. No history of abnormal pap smears. Wilma Ocampo APRN [address], [place], [address], [facility] - [facility] 09/26/2021 19:54:45 10/21/2021 text/html Teresa is here to discuss ultrasound done to follow up on PMB. Wilma Ocampo APRN [address], [place], [address], [place] - [facility] 10/21/2021 11:09:36 12/02/2021 text/html Patient in for colposcopy/biopsy. Patient denies any other symptoms. Wilma Ocampo APRN [address], [place], [address], [place] - [facility] 12/02/2021 12:55:37 12/18/2021 text/html Annual - MOBRepo rted by PatientHistoryFor history, patient reportslast annual exam: 2019,no gynecologic complaints, andno change in interval history.ContraceptionFo r current contraception, patient reportspostmenopausal (no bleeding since 2 days after her last visit-she has not started premarin cream yet).Preventative measuresFor preventive measures, patient reportsneeds to schedule [facility])but reportsup to date on colonoscopy screening,all immunization are current,encourage self breast examination,encourage regular exercise,encourage no tobacco use, andfollowed with q3 year pap smear and high risk hpv typing. The patient is a 61 year old naturally postmenopausal White female who presents as a/an established patient for annual gynecologic wellness exam. She denies gynecologic concerns. See above notations for significant gynecologic history of present illness as reported per patient during visit intake. Wilma Ocampo, SIGNS AND DISPLAYS SALES REPRESENTATIVE [address], [place], [address], [place] - [facility] 12/19/2021 19:22:15 OBGyn Episode No OBEpisode recorded.
--- NOTE | 2025-02-10 13:51 | ED_ITS ---
<Statement entered by Ben Jones DO - 02/11/25 17:48> I was consulted by the CARMEN, and we discussed the complexity of problems being addressed. I approved the treatment and management plan for this patient's care in the emergency department, thus performing a substantive portion of the medical decision making. Ben Jones DO Discharge Plan Disposition Patient Disposition: Xfer Short-Term Hosp Condition: Fair Prescriptions Prescriptions: No Action metoprolol tartrate 50 mg tablet 50 mg PO BID Xarelto 20 mg tablet 20 mg PO HS Patient Comments: TAKE 1 TABLET 1 TIME EACH DAY WITH FOOD Rx Instructions: on hold - resume december 01 per [facility] Breztri Aerosphere 160-9-4.8 mcg/actuation HFA aerosol inhaler 2 inh INHALATION BID Patient Comments: INHALE 2 PUFFS 2 TIMES EACH DAY fluoxetine 40 mg capsule 40 mg PO DAILY Patient Comments: TAKE 1 CAPSULE 1 TIME EACH DAY acetaminophen 325 mg tablet 650 mg PO Q6 PRN (Reason: Pain (Scale Score 1-3)) cetirizine 10 mg Tablet 10 mg PO DAILY ofloxacin 0.3 % drops 1 drp otic (ear) BID ferrous sulfate 325 mg (65 mg iron) Tablet 325 mg PO DAILY glucose 4 gram Tablet,Chewable 4 g PO Q15M PRN (Reason: Hypoglycemia) Rx Instructions: until symptoms of low blood sugar are controlled montelukast 10 mg Tablet 10 mg PO HS hydroxyzine HCl 25 mg Tablet 25 mg PO TID PRN (Reason: Anxiety) estradiol 0.01 % (0.1 mg/gram) Cream 2 g VAGINAL DAILY Rx Instructions: for 7 days melatonin 10 mg Tablet 10 mg PO HS PRN (Reason: Insomnia) magnesium oxide 400 mg magnesium Tablet 400 mg PO BID sitagliptin 50 mg Tablet 50 mg PO DAILY metformin 1,000 mg tablet 1,000 mg PO BID Patient Comments: TAKE 1 TABLET 2 TIMES EACH DAY WITH MEALS calcium carbonate-vitamin D3 600 mg-10 mcg (400 unit) tablet 1 tab PO DAILY Patient Comments: TAKE 1 TABLET 1 TIME EACH DAY WITH MEALS Jardiance 25 mg tablet 25 mg PO DAILY Patient Comments: TAKE 1 TABLET 1 TIME EACH DAY furosemide 40 mg Tablet 40 mg PO DAILY 30 Days Qty: 30 0RF spironolactone 25 mg Tablet 25 mg PO DAILY 30 Days Qty: 30 0RF doxycycline hyclate 100 mg capsule 100 mg PO DAILY 12 Days Qty: 12 0RF losartan 25 mg tablet 25 mg PO DAILY Qty: 30 0RF Rx Instructions: Started on 11/30/2024 due to mild JORGE. atorvastatin 40 MG tablet 40 mg PO HS Glucosamine Sulf-Chondroitin 1 EACH capsule 1 ea PO DAILY cyanocobalamin (vitamin B-12) 1,000 MCG tablet 1,000 mcg PO DAILY calcium carbonate 600 MG tablet 500 mg PO QID PRN (Reason: Heartburn) gabapentin 600 mg tablet 600 mg PO QID Patient Comments: TAKE 1 TABLET 4 TIMES EACH DAY pantoprazole 40 mg tablet,delayed release (DR/EC) 40 mg PO DAILY Patient Comments: TAKE 1 TABLET 1 TIME EACH DAY benzonatate 100 mg capsule 100 mg PO TID PRN (Reason: cough) Qty: 30 0RF Referrals Follow up/Referrals: Laurie Gutierrez MD [Primary Care Provider, Medical] - See instructions Clinical Impressions Clinical Impression: Neutropenia, Weakness Stand Alone Forms Stand Alone Forms: Transfer Record - ED Print Language Print Language: Kinyarwanda Discharge ED Provider: Ben Jones General Adult HPI General Chief complaint: Weakness Stated complaint: AO- 0500-collapsed/Fall- pain R leg, pale, tremors Time Seen by Provider: 02/10/25 13:39 Mode of Arrival: Wheelchair Source of Information: Patient Description of Symptoms (Recalled from ER Triage Doc. by RN): pt reports chronic weakness that has worsened over the last few days. This caused her to collapse this AM. She was lowered to the ground by a family member. pt started having R knee pain afterwards. pt reports she injured the same knee about a week ago, however, the pain is worse now. R knee pain is 8/10, unmedicated for pain. pt is A&OX4. pt is currently receiving IV chemotherapy at for lung cancer that metastasized to the brain. pt had three treatments last week. pt is shaking severely however the pt/family state that is her baseline. History of Present Illness HPI narrative: patient is a 64-year-old female PMHx previous lung cancer, mets to the brain, currently on chemo, HFrEF, COPD, HLD, DM who presents to the ED with her family with complaints of generalized weakness and confusion that occurred earlier this morning. Family states that they were assisting patient on the toilet when she started leaning forward when they are telling her to stand up, they felt like patient thought she was standing although she was only leaning forward. Related Data Home Medications ?Medication ?Instructions ?Recorded ?Confirmed atorvastatin 40 mg tablet 40 mg PO HS 07/11/17 5 calcium carbonate 500 mg PO QID PRN Heartburn 07/11/17 11/24/24 cyanocobalamin (vitamin B-12) 1,000 mcg PO DAILY 07/1111/24/24 1,000 mcg tablet glucosamine sulfate dipotassium Cl 1 ea PO DAILY [facility] 07/11/17 11/25/24 500 mg-chondroitin 400 mg capsule (Glucosamine Sulfate 2 KCL-Chondroitin) gabapentin 600 mg tablet 600 mg PO QID 02/01/2311/25 pantoprazole 40 mg tablet,delayed 40 mg PO DAILY 02/0111/25/24 release acetaminophen 325 mg tablet 650 mg PO Q6 PRN Pain (Sca le Score 11/24/24 11/25/24 1-3) budesonide 160 mcg-glycopyr 9 2 inh inhalation BID 03/1111/24/24 mcg-formot 4.8 mcg/actuation HFA inhaler (Breztri Aerosphere) cetirizine 10 mg tablet 10 mg PO DAILY 11/24/2411/15 estradiol 0.01% (0.1 mg/gram) 2 g vaginal DAILY 11/25/24 vaginal cream ferrous sulfate 325 mg (65 mg 325 mg PO DAILY 11/24/24 11/25/24 iron) tablet fluoxetine 40 mg capsule 40 mg PO DAILY 11/24/2411/15 glucose 4 gram chewable tablet 4 g PO Q15M PRN Hypogly cemia 11/24/24 11/25/24 hydroxyzine HCl 25 mg tablet 25 mg PO TID PRN Anxiety 11/24/24 11/25/24 magnesium oxide 400 mg PO BID 11/24/2411/25 melatonin 10 mg tablet 10 mg PO HS PRN Insomnia 03/1111/25/24 metoprolol tartrate 50 mg tablet 50 mg PO BID 11/24/24 11/24/24 montelukast 10 mg tablet 10 mg PO HS 11/24/24 5 ofloxacin 0.3 % ear drops 1 drp otic (ear) BID 5 11/25/24 rivaroxaban 20 mg tablet (Xarelto) 20 mg PO HS 5 11/24/24 sitagliptin 50 mg tablet 50 mg PO DAILY 11/24/2411/15 calcium 600 mg (as 1 tab PO DAILY 11/25/2411/15 carbonate)-vitamin D3 10 mcg (400 unit) tablet empagliflozin 25 mg tablet 25 mg PO DAILY 11/25/2404/11 (Jardiance) metformin 1,000 mg tablet 1,000 mg PO BID 11/25/2404/11 Previous Rx's ?Medication ?Instructions ?Recorded benzonatate 100 mg capsule 100 mg PO TID PRN cough #30 caps 03/19/24 doxycycline hyclate 100 mg capsule 100 mg PO DAILY 12 days #12 caps 11/26/24 furosemide 40 mg tablet 40 mg PO DAILY leg swelling 30 11/26/24 days #30 tabs losartan 25 mg tablet 25 mg PO DAILY #30 tabs 11/15 07/12 spironolactone 25 mg tablet 25 mg PO DAILY 30 days #30 tabs 11/26/24 Allergies Allergy/AdvReac Type Severity Reaction Status Date / Time cephalexin (From KEFLEX) Allergy Unknown Verified 04/19/23 09:37 lisinopril (LISINOPRIL) Allergy Unknown Verified 04/19/23 09:37 meloxicam (MELOXICAM) Allergy Unknown Verified 04/19/23 09:37 [facility] Disclaimer: The information contained in this section may have been updated after the patient was seen, as this information can be updated by other users. Medical History (Updated 02/10/25 @ 14:57 by Regina Katz APRN) Pneumonia GERD (gastroesophageal reflux disease) Diabetes Hyperlipidemia Obesity Falls Cellulitis of knee, left Insomnia COPD (chronic obstructive pulmonary disease) Chemotherapy management, encounter for Brain cancer Social History (Updated 11/25/24 @ 00:39 by Jaime Payan RN) Smoking Status: Unknown if ever smoked second hand exposure: Yes alcohol intake: never current occupational status: unemployed Travel in the last 8 weeks?: None household members: spouse housing: house current occupational exposures/hazards: No caffeine: Yes Have you lived/traveled outside [place] in past 30 days?: No Contact w/someone who lives/traveled outside [place] past 30 days?: No Exposure to someone with infectious disease in past 14 days?: No Do you have a fever (greater than 100.4 F or 38 C)?: No Have you tested positive for COVID-19?: No Exposed to someone with COVID-19 in past 14 days?: No Do you have a sore throat?: No Do you have a cough?: No Do you have any weakness?: No Do you have any diarrhea?: No Are you experiencing any unusual bleeding?: No Do you have any muscle aches/pain?: No Do you have any abdominal pain?: No Are you experiencing loss of taste or smell?: No Other Medical History Have you received the Flu Vaccine for this season: No Have you received the Pneumonia Vaccine: No ROS Obtained: Yes Systems reviewed as appropriate & no additional complaints except as documented Physical Exam General General appearance: alert and other (pale) Head Head exam: atraumatic Eye Eye exam: Present PERRL and EOMI Neck Neck exam: Present full ROM Respiratory Respiratory exam: Present normal lung sounds bilaterally Cardiovascular Cardiovascular exam: Present regular rate Extremities Exam Extremities exam: Present full ROM Back Exam Back exam: Present full ROM Neurological Exam Neurological exam: Present alert and oriented X3 Skin Skin exam: Present dry Medical Decision Making Medical Records Screening: Per USPSTF and CDC recommendations, given the prevalence of disease in our region, it is our hospital?s policy to screen for HIV and viral Hepatitis for all patients aged 18 and over and those with ongoing risk factors. Garret Inquiry Pt receiving controlled substance: No Vital Signs: 02/10/25 13:07 02/10/25 14:00 02/10/25 14:15 Temperature 99.1 F Temperature Source Oral Pulse Rate 90 90 Pulse Rate [Left] 107 H Respiratory Rate 18 Blood Pressure 111/56 L Blood Pressure [Right Arm] 93/53 L Blood Pressure Mean [Right Arm] 66 Blood Pressure Source [Right Arm] Automatic Cuff Blood Pressure Position [Right Arm] Sitting 02 Sat by Pulse Oximetry 91 L 99 99 Oxygen Delivery Method Nasal Cannula Oxygen Flow Rate (LPM) 2 02/10/25 14:30 02/10/25 15:01 02/10/25 15:30 Temperature Temperature Source Pulse Rate 78 89 87 Pulse Rate [Left] Respiratory Rate Blood Pressure 125/107 H 98/66 L 91/49 L Blood Pressure [Right Arm] Blood Pressure Mean [Right Arm] Blood Pressure Source [Right Arm] Blood Pressure Position [Right Arm] 02 Sat by Pulse Oximetry 89 L 93 L 98 Oxygen Delivery Method Oxygen Flow Rate (LPM) 02/10/25 15:53 Temperature 98.9 F Temperature Source Pulse Rate 89 Pulse Rate [Left] Respiratory Rate 18 Blood Pressure 91/59 L Blood Pressure [Right Arm] Blood Pressure Mean [Right Arm] Blood Pressure Source [Right Arm] Blood Pressure Position [Right Arm] 02 Sat by Pulse Oximetry Oxygen Delivery Method Oxygen Flow Rate (LPM) Lab Data Lab Results 02/10/25 13:45: WBC 0.3 L*, RBC 2.12 L, Hgb 6.8 L*, Hct 21.0 L, MCV 99.1 H, MCH 32.1 H, MCHC 32.4, RDW 13.9, Plt Count 7 L*, MPV 9.1, Neut % (Auto) 7.0 L, Lymph % (Auto) 86.2 H, [place] % (Auto) 3.4, Eos % (Auto) 3.4, Baso % (Auto) 0.0 L, Neut # (Auto) 0.0 L*, Lymph # (Auto) 0.3 L, [place] # (Auto) 0.0 L, Eos # (Auto) 0.0, Baso # (Auto) 0.0, Total Counted 25, Neutrophils % (Manual) 8 L, Lymphocytes % (Manual) 80 H, Atypical Lymphs % 8.0, Monocytes % (Manual) 4, Platelet Estimate Marked decrease, RBC Morphology Normal, Sodium 140, Potassium 2.6 L*, Chloride 99, Carbon Dioxide 34 H, Anion Gap 9.6, BUN 11, Creatinine 1.00, Estimated Creat Clear 81, Estimated GFR 56 L, Est GFR ( Amer) 68, Glucose 166 H, Lactate 2.0, Calcium 7.2 L, Magnesium 0.8 L, Total Bilirubin 1.1, AST 25, ALT 16, Alkaline Phosphatase 76, Troponin I 0.03, NT-Pro-B Natriuret Pep 2730 H, Total Protein 6.6, Albumin 3.2 L, Globulin 3.4 H, Albumin/Globulin Ratio 0.9 L 02/10/25 14:04: Chlamy pneumoniae PCR Not detected, Adenovirus (PCR) Not detected, B. pertussis DNA (PCR) Not detected, Coronavirus OC43 (PCR) Not detected, Coronavirus HKU1 (PCR) Not detected, Coronavirus 229E (PCR) Not detected, SARS-CoV-2 (PCR) Not detected, Coronavirus NL63 (PCR) Not detected, Human Metapneumovir PCR Not detected, Influenza A (H1) PCR Not detected, Influ A (H1N1/09) PCR Not detected, Influenza A (H3) PCR Not detected, Influenza Type A (PCR) Not detected, Influenza Type B (PCR) Not detected, M. pneumoniae (PCR) Not detected, Parainfluenza 1 (PCR) Not detected, Parainfluenza 2 (PCR) Not detected, Parainfluenza 3 (PCR) Not detected, Parainfluenza 4 (PCR) Not detected, RSV (PCR) Not detected, Entero/Rhino (PCR) Not detected 02/10/25 14:27: Urine Color Yellow, Urine Appearance Sl cloudy, Urine pH 6.0, Ur Specific [place] 1.010, Urine Protein 1+ A, Urine Glucose (UA) Negative, Urine Ketones Trace, Urine Blood 2+ A, Urine Nitrate Negative, Urine Bilirubin Negative, Urine Urobilinogen 0.2, Ur Leukocyte Esterase Negative, Urine RBC 3-5, Urine WBC None, Ur Squamous Epith Cells 3-5, Urine Bacteria 2+ 02/10/25 14:50: Blood Type O Positive, Antibody Screen Negative 02/10/25 13:45 02/10/25 13:45 Orders (Tests/Meds): ED MEDICATIONS Discontinued Medications Generic Name Dose Route Start Last Admin Trade Name Freq PRN Reason Stop Dose Admin Sodium Chloride 1,000 mls @ 125 mls/hr 02/10/25 13:47 02/10/25 16:06 Sod Chlor 0.9% 1000ml Bag IV 02/10/25 21:46 Infused .Q8H ONE Infusion Potassium Chloride/Water 100 mls @ 100 mls/hr 02/10/25 15:04 02/10/25 16:05 Potassium Chloride 10meq/100ml Ivpb IV 02/10/25 17:03 Infused Q1H BRIDGETTE Infusion Ondansetron HCl 4 mg 02/10/25 13:47 02/10/25 14:26 Ondansetron 4mg/2ml Vial IV 02/10/25 13:48 4 mg ONCE ONE Administration Tetracycl/Hydrocort/Nystatin/Diphen 15 ml 02/10/25 13:49 02/10/25 14:26 Magic Mouthwash 300ml Bottle PO 02/10/25 13:50 15 ml ONCE ONE Administration ORDERS Category Date Time Status Type and Screen Stat BBK 02/10/25 14:50 Completed CXR --portable [XR chest portable] Stat Exams 02/10/25 14:46 Completed BNP [NT Pro Brain Natriuretic Pep.] Stat Lab 02/10/25 13:45 Completed CBC [Complete Blood Count Auto Diff] Stat Lab 02/10/25 13:45 Completed CMP [Comprehensive Metabolic Panel] Stat Lab 02/10/25 13:45 Completed Full Resp Panel w/COVID ([facility]) Routine Lab 02/10/25 14:04 Completed Lactic Acid Stat Lab 02/10/25 13:45 Completed Magnesium Stat Lab 02/10/25 13:45 Completed Trop I [Troponin I] Stat Lab 02/10/25 13:45 Completed Urinalysis and Microscopic Stat Lab 02/10/25 14:27 Completed Blood Culture Stat Micro 02/10/25 13:59 Received Urine Culture Stat Micro 02/10/25 14:27 Received Medical Decision Narrative: In summary, patient is a 64-year-old female PMHx previous lung cancer, mets to the brain, currently on chemo, HFrEF, COPD, HLD, DM who presents to the ED with her family with complaints of generalized weakness and confusion that occurred earlier this morning. Family states that they were assisting patient on the toilet when she started leaning forward when they are telling her to stand up, they felt like patient thought she was standing although she was only leaning forward. They state that normally, patient is alert and oriented, advised that over the past 3 weeks she has developed generalized tremor. Patient also complains of new development of pain, cracking of her mouth and tongue. She states that she feels like the chemo that she is getting 3 times a week is much harder on her body than the previous chemo she has received. Patient denies fever, chills, body aches, headache, visual disturbances, chest pain, shortness of breath, abdominal pain. Differential diagnoses include disease progression, brain cancer, infectious process, sepsis, UTI, among others. Upon initial evaluation patient is hypotensive, MAP appropriate. Afebrile. Her physical exam is normal however she is weak. She does have generalized involuntary body tremors. CBC remarkable for WBC 0.3, hemoglobin 6.8, hematocrit 21, platelets 7, neutrophil 0.0. Patient immediately placed in neutropenic precautions. CMP remarkable for a potassium of 2.6, IV potassium runs ordered, glucose 166, first troponin < 0.03. BNP 2,730. Type and screen ordered. Will order blood however unlikely to be here before EMS transfer. I updated the patient and family on neutropenia. She is agreeable to be transferred to at this time. Called transfer center since patient uses [facility], they excepted patient as a transfer for neutropenia and weakness to [place] ED under Dr. Kumar. Patient was transported to ED via EMS Critical Care Critical Care Time Critical Care Time: No
[2025-02-10 14:04] LABS: Immature Granulocytes % 0 %; Mean Corpuscular HGB Conc 32.4 g/dL (31.8-35.4); Mean Corpuscular Hemoglobin 32.1 pg (27.0-31.2); Mean Corpuscular Volume 99.1 fl (81-99); Nucleated Red Blood Cells % 0 %; Red Blood Count 2.12 M/mm3 (4.20-5.40); Red Cell Distribution Width-SD 50.2 fL
[2025-02-10 14:07] LABS: Albumin Level 3.2 g/dl (3.5-5.0); Chloride 99 mmol/L (98-107)
[2025-02-10 14:08] LABS: Sodium 140 mmol/L (136-145)
[2025-02-10 14:10] LABS: Adenovirus,PCR Not Detected (NotDetected); Chlamydophila Pneumoniae, PCR Not Detected (NotDetected); Coronavirus 19, PCR Not Detected (NotDetected); Coronovirus HKU1,PCR Not Detected (NotDetected); Influenza A, PCR Not Detected (NotDetected); Influenza AH1, 2009 Not Detected (NotDetected); Influenza AH1, PCR Not Detected (NotDetected); Influenza AH3,PCR Not Detected (NotDetected); Influenza B, PCR Not Detected (NotDetected); Mycoplasma Pneumoniae, PCR Not Detected (NotDetected); Parainfluenza 1, PCR Not Detected (NotDetected); Parainfluenza 2, PCR Not Detected (NotDetected); Parainfluenza 3, PCR Not Detected (NotDetected); Parainfluenza 4, PCR Not Detected (NotDetected)
[2025-02-10 14:10] LABS: Blood Urea Nitrogen 11 mg/dl (7-17); Creatinine Clearance Estimated 81 mL/min (50-200); Creatinine,Serum 1.00 mg/dl (0.52-1.04); Estimated Glomerular Filt Rate 56 ml/min (>60); GFR (African American) 68 ML/MIN (>60)
[2025-02-10 14:11] LABS: Alanine Aminotransferase 16 U/L (12-78); Albumin/Globulin Ratio 0.9 (1.1-1.8); Alkaline Phosphatase 76 U/L (38-126); Anion Gap 9.6 mEq/L (5-15); Aspartate Amino Transferase 25 U/L (14-36); Bilirubin,Total 1.1 mg/dl (0.2-1.3); Calcium 7.2 mg/dl (8.4-10.2); Carbon Dioxide 34 mmol/L (22.0-30.0); Globulin 3.4 g/dL (1.3-3.2); Glucose 166 mg/dl (74-100); Total Protein,Serum 6.6 g/dl (6.3-8.2)
[2025-02-10] MEDS: 0.9 % SODIUM CHLORIDE 1000ML 1,000 ML 125 ML IV (14:13)
[2025-02-10 14:16] LABS: Hemoglobin 6.8 g/dL (12.2-16.2); White Blood Count 0.3 K/mm3 (4.8-10.8)
[2025-02-10 14:17] LABS: Hematocrit 21.0 % (37.0-47.0); Platelet Count 7 K/mm3 (142-424); Potassium 2.6 mmoL/L (3.5-5.1)
[2025-02-10 14:20] LABS: NT Pro Brain Natriuretic Pep. 2730 pg/mL (0-125)
[2025-02-10 14:23] LABS: Troponin I 0.03 ng/ml (0.00-0.034)
[2025-02-10] MEDS: ONDANSETRON 4MG/2ML VIAL 4 MG IV (14:26)
[2025-02-10] MEDS: MAGIC MOUTHWASH 300ML BOTTLE 15 ML PO (14:26)
[2025-02-10 14:32] LABS: Microscopic, Urine URINE MICROSCOPIC (MICROSCOPIC)
[2025-02-10 14:36] LABS: Bilirubin,Urine Negative (Negative); Color,Urine YELLOW (Yellow); Glucose,Urine (UA) Negative (Negative); Ketones,Urine TRACE (Negative); Leukocyte Esterase,Urine Negative (Negative); PH,Urine 6.0 (5.0-8.5); Protein,Urine 1+ (Negative); Specific Gravity, Urine 1.010 (1.005-1.030); Urobilinogen,Urine 0.2 EU/dl (0.2)
--- NOTE | 2025-02-10 14:46 | XR_ITS ---
FINAL REPORT CLINICAL HISTORY: weakness , shortness of breath sent COMPARISON: 11/24/2024 FINDINGS: A portable view of the chest was obtained. Cardiac and mediastinal silhouettes are within normal limits. There has been interval worsening of medial right upper lobe opacity. Central obstructing lesion is not excluded. Subtle patchy bibasilar airspace opacities were likely on the previous exam.. There is no pleural effusion or pneumothorax. IMPRESSION: Interval worsening medial right upper lobe opacity. Recommend chest CT with contrast for further evaluation. Reviewed, Interpreted and Dictated by Leigha Barnes MD Transcribed by Haven Martinez Authenticated and [facility]
[2025-02-10 14:54] LABS: Bacteria,Urine 2+ /lpf
--- NOTE | 2025-02-10 14:57 | PC.NURSE ---
Called for a patient transfer per Eleni Katz. She is on the phone now with [facility]
--- NOTE | 2025-02-10 15:18 | PC.NURSE ---
REPORT CALLED TO [facility] ED AT THIS TIME
--- NOTE | 2025-02-10 15:23 | PC.NURSE ---
call made to [facility] ems
[2025-02-10 16:39] LABS: Magnesium 0.8 mg/dl (1.6-2.3)
--- NOTE | 2025-02-10 16:39 | PC.NURSE ---
mag critical result called from lab, pt transferred to prior to lab called to report results.
[2025-02-10 17:41] LABS: RBC Morphology Normal; Total Cells Counted 25
--- NOTE | 2025-02-15 09:37 | PC.NURSE ---
Final urine culture results faxed to [facility] ED as she was transferred to 's care.
== END 2025-02-10 16:07 | disposition short-term general hospital (02) ==
PROVIDERS: Nurse Practitioner; Emergency Provider Student in an Organized Health Care Education/Training Program; PCP Internal Medicine
DX: D70.1 Agranulocytosis secondary to cancer chemotherapy (principal); T45.1X5A Adverse effect of antineoplastic and immunosuppressive drugs, initial encounter; R53.0 Neoplastic (malignant) related fatigue; R41.0 Disorientation, unspecified; G25.1 Drug-induced tremor; C79.31 Secondary malignant neoplasm of brain; C34.90 Malignant neoplasm of unspecified part of unspecified bronchus or lung
CPT/HCPCS: 0223U; 71045; 80053; 81001; 83605; 83735; 83880; 84484; 85007; 85025; 86850; 87040; 87081; 87086; 87088; 87186; 93005; 96361; 96365; 96374; 99285; J2405; J3480; J7030

== ENCOUNTER 2025-05-09 13:50 | Outpatient (RCR) | payer MEDICAID, SELFPAY | END 2025-05-09 23:59 | disposition home or self-care (01) | LOC: PT.CARL 13:50 | PROVIDERS: PCP Internal Medicine; Visit Provider Nurse Practitioner Acute Care | DX: C80.1 Malignant (primary) neoplasm, unspecified (principal); R53.81 Other malaise | CPT/HCPCS: 97162 ==